=== PATIENT | female | born 1960 | race Caucasian/White ===

== ENCOUNTER → 2017-08-11 14:19 | Outpatient (REF) | payer MEDICAID, SELFPAY ==
[2017-08-11 17:53] LABS: Amphetamine/Metha Screen,Urine Negative ng/mL (<1000); Barbiturates Screen,Urine Negative ng/mL (<200); Benzodiazepines Screen,Urine Negative ng/mL (200); Cannabinoid Screen,Urine Negative ng/mL (<50); Cocaine Screen,Urine Negative ng/g (<300); Methadone Screen,Urine Negative ng/mL (<300); Opiate Screen,Urine Positive ng/mL (<300); Phencyclidine Screen,Urine Negative ng/mL (<25)
== END ==
LOC: LAB 14:19
PROVIDERS: Visit Provider Emergency Medicine
DX: Z79.899 Other long term (current) drug therapy (principal)
CPT/HCPCS: 80305

== ENCOUNTER → 2017-08-29 10:47 | Outpatient (REF) | payer MEDICAID, SELFPAY | LOC: LAB 10:47 | PROVIDERS: Visit Provider Nurse Practitioner Family | DX: N89.8 Other specified noninflammatory disorders of vagina (principal) | CPT/HCPCS: 87210 ==

== ENCOUNTER → 2017-09-10 10:05 | Outpatient (REF) | payer MEDICAID, SELFPAY ==
[2017-09-10 13:48] LABS: Cholesterol 124 mg/dL (140-200); HDL Cholesterol 41 mg/dL (29-89); LDL Cholesterol 67 mg/dL (0-130); Triglycerides 78 mg/dL (30-200); VLDL Cholesterol 16 mg/dL (0-40)
[2017-09-10 14:10] LABS: Hemoglobin A1C 10.8 % (0.0-7.0)
[2017-09-10 14:11] LABS: Amphetamine/Metha Screen,Urine Negative ng/mL (<1000); Barbiturates Screen,Urine Negative ng/mL (<200); Benzodiazepines Screen,Urine Negative ng/mL (200); Cannabinoid Screen,Urine Negative ng/mL (<50); Cocaine Screen,Urine Negative ng/g (<300); Methadone Screen,Urine Negative ng/mL (<300); Opiate Screen,Urine Positive ng/mL (<300); Phencyclidine Screen,Urine Negative ng/mL (<25)
[2017-09-12 12:08] LABS: Microalbumin, Urine 6.2 ug/mL (Not Estab.)
== END ==
LOC: LAB 10:05
PROVIDERS: Visit Provider Emergency Medicine
DX: E11.9 Type 2 diabetes mellitus without complications (principal); Z79.899 Other long term (current) drug therapy
CPT/HCPCS: 80061; 80305; 82043; 83036

== ENCOUNTER → 2017-10-08 13:47 | Outpatient (REF) | payer MEDICAID, SELFPAY ==
[2017-10-08 18:59] LABS: Cannabinoid Screen,Urine Negative ng/mL (<50); Methadone Screen,Urine Negative ng/mL (<300); Phencyclidine Screen,Urine Negative ng/mL (<25)
[2017-10-08 19:16] LABS: Amphetamine/Metha Screen,Urine Negative ng/mL (<1000); Barbiturates Screen,Urine Negative ng/mL (<200); Benzodiazepines Screen,Urine Negative ng/mL (200); Cocaine Screen,Urine Negative ng/g (<300); Opiate Screen,Urine Positive ng/mL (<300)
== END ==
LOC: LAB 13:47
PROVIDERS: Visit Provider Emergency Medicine
DX: Z79.899 Other long term (current) drug therapy (principal)
CPT/HCPCS: 80305

== ENCOUNTER 2017-10-14 11:38 | Emergency (ER) | payer MEDICAID, SELFPAY ==
[2017-10-14 11:55] VITALS: BP 172/103; PULSE 103; RESP 20; TEMP 36.8; O2SAT 97; BMI 30.7
[2017-10-14 12:06] LABS: UTC Influenza A Antigen Negative (Negative); UTC Influenza B Antigen Negative (Negative)
--- NOTE | 2017-10-14 12:11 | HMH.EDUTC ---
[facility] [place] Clinical Impression: Upper respiratory virus Disposition: Home, Self-Care Condition on Discharge: Good Instructions: DI for Viral Upper Respiratory Infection -- Adult Additional Instructions: * No sign of bacterial infection. Likely viral. Virus can take 7-14 days to run their course * Nasal Saline to remove nasal drainage and help with nasal congestion. Hard to eat, drink, sleep with nasal congestion so important to keep nose cleaned out * Monitor Temp. Tylenol every 4 hours as needed no more then 5 times a day or 4000mg in 24 hours and/or ibuprofen every 6 hours as needed no more then 3200mg in 24 hours (as long as your primary care doctor has told you that it is ok to take both) for fever/aches/pain. ER if fever no less than 101 despite tylenol and ibuprofen * Encourage fluids, water, gatorade, powerade, pedialyte if /toddler/child * warm salt water gargles * warm fluids * sore throat lozenges * sleep elevated * humidifier/vaporizer * flonase 2 sprays each nostril daily but may take 2-3 days to notice improvement with it. * Coricidin HBP over the counter as needed for symptoms. Avoid other otc cold medications due to decongestants elevate your blood pressure further. * Monitor your blood pressure. Elevated significantly today. Could be due to the tylenol cold and flu you have been taking. If doesn't start to come down OR you experience as symptoms such as worsening headache, vision changes, chest pain then you seek medical attention immediately Prescriptions: Fluticasone Propionate [Flonase 50mcg nasal spray 16gm] 2 spr NS DAILY #1 bottle Loratadine [Allergy] 10 mg PO DAILY #30 tab Referrals: Larry Bedolla MD [Primary Care Provider] - (Follow up IMMEDIATELY for new or worsening symptoms OR no noticeable improvement over the next 48-72 hours. 911 for difficulty breathing or swallowing.) Forms: Work/School Release Time of Disposition: 12:26 Medical Decision Making - Billy Inquiry Pt receiving controlled substance: No Vital Signs: 10/14/17 11:55 Temperature 98.3 F Temperature Source Oral Pulse Rate [Right Radial] 103 H Respiratory Rate 20 Blood Pressure [Right Arm] 172/103 Blood Pressure Mean [Right Arm] 126 02 Sat by Pulse Oximetry 97 Oxygen Delivery Method Room Air - Lab Data Lab results reviewed: Yes: I reviewed the patient's lab results. Lab Results 10/14/17 11:55: Influenza Type A Ag Negative, Influenza Type B Ag Negative [facility] [place] - General Stated complaint: Cold, congestion,body aches Time Seen by Provider: 10/14/17 12:11 Mode of Arrival: Family Vehicle Source of Information: Patient Limitations: No Limitations Description of Symptoms (Recalled from Triage Doc. by RN): PT C/O COUGH, BODY ACHES, HEADACHES, AND CHEST CONGESTION FOR 3 DAYS. HEENT Symptoms (Recalled from RN notes): Yes (HEADACHE,BODY ACHES,) Resp Symptoms (Recalled from RN notes): Yes (COUGH,CHEST CONGESTION) Skin Symptoms (Recalled from RN notes): No MS Symptoms (Recalled from RN notes): No Functional Status (Recalled from RN notes): NA - History of Present Illness Provider Complaint: c/o aches, chills, sinus pressure, rhinorrhea, nasal congestion, headache, sore throat starting 2-3 days ago. Feeling feverish at times. Tylenol cold and flu helps briefly. Hasn't taken or tried anything else. Hx of HTN and DM. Reports HTN typically controlled and suprised by how high it is today. Other then headache that she attributes to illness, asymptomatic. DM hasn't been controlled for several months . Working with PCP to get blood sugars out of the 200s but no higher then typical. - Related Data Home Medications Medication Instructions Recorded Confirmed aspirin 81 mg tablet,delayed 81 mg PO ONCE 08/11/17 10/14/17 release atorvastatin 40 mg tablet 40 mg PO HS tab 08/11/17 10/14/17 blood sugar diagnostic strips See Dose Instructions .ROUTE 08/11/17 .MEDSUPPLY #20 each carvedilol 25 mg tablet 25 mg
--- NOTE | 2017-10-14 12:19 | ED_ITS ---
[facility] [place] Clinical Impression: Upper respiratory virus Disposition: Home, Self-Care Condition on Discharge: Good Instructions: DI for Viral Upper Respiratory Infection -- Adult Additional Instructions: * No sign of bacterial infection. Likely viral. Virus can take 7-14 days to run their course * Nasal Saline to remove nasal drainage and help with nasal congestion. Hard to eat, drink, sleep with nasal congestion so important to keep nose cleaned out * Monitor Temp. Tylenol every 4 hours as needed no more then 5 times a day or 4000mg in 24 hours and/or ibuprofen every 6 hours as needed no more then 3200mg in 24 hours (as long as your primary care doctor has told you that it is ok to take both) for fever/aches/pain. ER if fever no less than 101 despite tylenol and ibuprofen * Encourage fluids, water, gatorade, powerade, pedialyte if /toddler/ child * warm salt water gargles * warm fluids * sore throat lozenges * sleep elevated * humidifier/vaporizer * flonase 2 sprays each nostril daily but may take 2-3 days to notice improvement with it. * Coricidin HBP over the counter as needed for symptoms. Avoid other otc cold medications due to decongestants elevate your blood pressure further. * Monitor your blood pressure. Elevated significantly today. Could be due to the tylenol cold and flu you have been taking. If doesn't start to come down OR you experience as symptoms such as worsening headache, vision changes, chest pain then you seek medical attention immediately Prescriptions: Fluticasone Propionate [Flonase 50mcg nasal spray 16gm] 2 spr NS DAILY #1 bottle Loratadine [Allergy] 10 mg PO DAILY #30 tab Referrals: Larry Bedolla MD [Primary Care Provider] - (Follow up IMMEDIATELY for new or worsening symptoms OR no noticeable improvement over the next 48-72 hours. 911 for difficulty breathing or swallowing.) Forms: Work/School Release Time of Disposition: 12:26 Medical Decision Making - Billy Inquiry Pt receiving controlled substance: No Vital Signs: 10/14/17 11:55 Temperature 98.3 F Temperature Source Oral Pulse Rate [Right Radial] 103 H Respiratory Rate 20 Blood Pressure [Right Arm] 172/103 Blood Pressure Mean [Right Arm] 126 02 Sat by Pulse Oximetry 97 Oxygen Delivery Method Room Air - Lab Data Lab results reviewed: Yes: I reviewed the patient's lab results. Lab Results 10/14/17 11:55: Influenza Type A Ag Negative, Influenza Type B Ag Negative [facility] [place] - General Stated complaint: Cold, congestion,body aches Time Seen by Provider: 10/14/17 12:11 Mode of Arrival: Family Vehicle Source of Information: Patient Limitations: No Limitations Description of Symptoms (Recalled from Triage Doc. by RN): PT C/O COUGH, BODY ACHES, HEADACHES, AND CHEST CONGESTION FOR 3 DAYS. HEENT Symptoms (Recalled from RN notes): Yes (HEADACHE,BODY ACHES,) Resp Symptoms (Recalled from RN notes): Yes (COUGH,CHEST CONGESTION) Skin Symptoms (Recalled from RN notes): No MS Symptoms (Recalled from RN notes): No Functional Status (Recalled from RN notes): NA - History of Present Illness Provider Complaint: c/o aches, chills, sinus pressure, rhinorrhea, nasal congestion, headache, sore throat starting 2-3 days ago. Feeling feverish at times. Tylenol cold and flu helps briefly. Hasn't taken or tried anything else. Hx of HTN and DM. Reports HTN typically controlled and suprised by how high it is today. Other then headache that she attributes to illness, asymptomatic. DM hasn't been controlled for jimmy
[2017-10-14 12:29] VITALS: BP 167/99; PULSE 97; RESP 18; TEMP 36.9; O2SAT 99
== END 2017-10-14 12:33 | disposition home or self-care (01) ==
PROVIDERS: Emergency Provider Nurse Practitioner Family; Family Provider Emergency Medicine; PCP Emergency Medicine
DX: J06.9 Acute upper respiratory infection, unspecified (principal); E11.9 Type 2 diabetes mellitus without complications; Z79.4 Long term (current) use of insulin; I10 Essential (primary) hypertension; I25.10 Atherosclerotic heart disease of native coronary artery without angina pectoris
CPT/HCPCS: 87804; 99201

== ENCOUNTER → 2017-11-04 09:25 | Outpatient (REF) | payer MEDICAID, SELFPAY ==
[2017-11-04 13:54] LABS: Amphetamine/Metha Screen,Urine Negative ng/mL (<1000); Barbiturates Screen,Urine Negative ng/mL (<200); Benzodiazepines Screen,Urine Negative ng/mL (200); Cannabinoid Screen,Urine Negative ng/mL (<50); Cocaine Screen,Urine Negative ng/g (<300); Methadone Screen,Urine Negative ng/mL (<300); Opiate Screen,Urine Positive ng/mL (<300); Phencyclidine Screen,Urine Negative ng/mL (<25)
== END ==
LOC: LAB 09:25
PROVIDERS: Visit Provider Emergency Medicine
DX: Z79.899 Other long term (current) drug therapy (principal)
CPT/HCPCS: 80305

== ENCOUNTER → 2017-11-24 16:01 | Outpatient (REF) | payer MEDICAID, SELFPAY ==
[2017-11-24 18:02] LABS: Amphetamine/Metha Screen,Urine Negative ng/mL (<1000); Barbiturates Screen,Urine Negative ng/mL (<200); Benzodiazepines Screen,Urine Negative ng/mL (200); Cannabinoid Screen,Urine Negative ng/mL (<50); Cocaine Screen,Urine Negative ng/g (<300); Methadone Screen,Urine Negative ng/mL (<300); Opiate Screen,Urine Positive ng/mL (<300); Phencyclidine Screen,Urine Negative ng/mL (<25)
== END ==
LOC: LAB 16:01
PROVIDERS: Visit Provider Emergency Medicine
DX: Z79.899 Other long term (current) drug therapy (principal)
CPT/HCPCS: 80305

== ENCOUNTER → 2017-12-23 15:38 | Outpatient (REF) | payer MEDICAID, SELFPAY ==
[2017-12-23 18:54] LABS: Amphetamine/Metha Screen,Urine Negative ng/mL (<1000); Barbiturates Screen,Urine Negative ng/mL (<200); Benzodiazepines Screen,Urine Negative ng/mL (200); Cannabinoid Screen,Urine Negative ng/mL (<50); Cocaine Screen,Urine Negative ng/g (<300); Methadone Screen,Urine Negative ng/mL (<300); Opiate Screen,Urine Positive ng/mL (<300); Phencyclidine Screen,Urine Negative ng/mL (<25)
== END ==
LOC: LAB 15:38
PROVIDERS: Visit Provider Emergency Medicine
DX: Z79.899 Other long term (current) drug therapy (principal)
CPT/HCPCS: 80305

== ENCOUNTER → 2018-01-05 10:30 | Outpatient (POV) | payer MEDICAID, SELFPAY ==
[2018-01-05 11:00] VITALS: BP 127/83; PULSE 83; RESP 20; O2SAT 98; BMI 30.3
--- NOTE | 2018-01-05 11:07 | HMH.PAINSOAP ---
[facility] Pain Management SOAP Note Subjective:: Patient is a pleasant 57-year-old white female who presents today for follow-up. Patient was scheduled for lumbar epidural steroid injection last June however due to elevated blood sugar she was unable to complete the injection. Patient states she now has better control of her blood sugar. Patient current pain is mainly in her left hip. Most of it is located over her left SI joint and her left greater trochanteric bursa. Patient rates her pain a 6 out of 10 today. 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 Patient tried and failed physical therapy, anti-inflammatories are not advised due to cardiac history. Patient is continuing to do home stretching. ROS General: no recent weight change, no fever, no sleep disturbances Respiratory: no cough, no shortness of air, no recurring pulmonary infections Cardiovascular/Peripheral Vascular: No chest pain, No palpitations, no edema, no shortness of breath. Gastrointestinal: no incontinence, normal bowel movements reported Genitourinary: no incontinence Musculoskeletal: Left hip pain, left SI joint pain Psychiatric: normal mood/ affect, Neurological: [denies weakness in extremities], [denies balance issues] Objective:: Physical Exam General: Alert and oriented x3, no acute distress, pleasant and cooperative, [on room air] Lungs: Resps E/U, Symmetrical chest expansion, Eyes: PERRL Musculoskeletal: Flexion and extension of lumbar spine somewhat guarded secondary to pain, deep tendon reflexes normal, strength in upper and lower extremities [5/5], slightly antalgic gait noted, extreme point tenderness over left SI joint and left greater trochanteric bursa, positive Kingsley's test on the left side Neurological: speech clear, instructor weaving equal, no gross sensory deficits Assessment:: Degenerative disc disease of the lumbar spine, sacroiliitis Plan:: We will schedule left SI joint. Patient failed other conservative methods including medication, unable to take anti-inflammatories, stretching therapies, physical therapy. I will follow-up with this patient after injection. Patient and I discussed decreasing the steroid dose due to her diabetes. This note was dictated using voice recognition software and may contain errors or omissions
--- NOTE | 2018-01-05 11:10 | P.CONS_ITS ---
[facility] Pain Management SOAP Note Subjective:: Patient is a pleasant 57-year-old white female who presents today for follow- up. Patient was scheduled for lumbar epidural steroid injection last June however due to elevated blood sugar she was unable to complete the injection. Patient states she now has better control of her blood sugar. Patient current pain is mainly in her left hip. Most of it is located over her left SI joint and her left greater trochanteric bursa. Patient rates her pain a 6 out of 10 today. 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 Patient tried and failed physical therapy, anti-inflammatories are not advised due to cardiac history. Patient is continuing to do home stretching. ROS General: no recent weight change, no fever, no sleep disturbances Respiratory: no cough, no shortness of air, no recurring pulmonary infections Cardiovascular/Peripheral Vascular: No chest pain, No palpitations, no edema, no shortness of breath. Gastrointestinal: no incontinence, normal bowel movements reported Genitourinary: no incontinence Musculoskeletal: Left hip pain, left SI joint pain Psychiatric: normal mood/ affect, Neurological: [denies weakness in extremities], [denies balance issues] Objective:: Physical Exam General: Alert and oriented x3, no acute distress, pleasant and cooperative, [ on room air] Lungs: Resps E/U, Symmetrical chest expansion, Eyes: PERRL Musculoskeletal: Flexion and extension of lumbar spine somewhat guarded secondary to pain, deep tendon reflexes normal, strength in upper and lower extremities [5/5], slightly antalgic gait noted, extreme point tenderness over left SI joint and left greater trochanteric bursa, positive Kingsley's test on the left side Neurological: speech clear, program services assistant equal, no gross sensory deficits Assessment:: Degenerative disc disease of the lumbar spine, sacroiliitis Plan:: We will schedule left SI joint. Patient failed other conservative methods including medication, unable to take anti-inflammatories, stretching therapies, physical therapy. I will follow-up with this patient after injection. Patient and I discussed decreasing the steroid dose due to her diabetes. This note was dictated using voice recognition software and may contain errors or omissions
== END ==
PROVIDERS: Family Provider Emergency Medicine; PCP Emergency Medicine; Visit Provider Clinical Nurse Specialist Family Health
DX: M46.1 Sacroiliitis, not elsewhere classified (principal)
CPT/HCPCS: 99212

== ENCOUNTER → 2018-01-20 10:21 | Outpatient (REF) | payer MEDICAID, SELFPAY ==
[2018-01-20 14:36] LABS: Amphetamine/Metha Screen,Urine Negative ng/mL (<1000); Barbiturates Screen,Urine Negative ng/mL (<200); Benzodiazepines Screen,Urine Negative ng/mL (200); Cannabinoid Screen,Urine Negative ng/mL (<50); Cocaine Screen,Urine Negative ng/g (<300); Methadone Screen,Urine Negative ng/mL (<300); Opiate Screen,Urine Positive ng/mL (<300); Phencyclidine Screen,Urine Negative ng/mL (<25)
== END ==
LOC: LAB 10:21
PROVIDERS: Visit Provider Emergency Medicine
DX: Z79.899 Other long term (current) drug therapy (principal)
CPT/HCPCS: 80305

== ENCOUNTER 2018-02-11 16:57 | Observation (INO) ==
--- NOTE | 2018-02-11 17:01 | Emergency Department Note ---
ED Disposition Clinical Impression: Unstable angina, Hyperglycemia Disposition: Still a Patient Condition on Discharge: Fair Referrals: Larry Bedolla MD [Primary Care Provider] - - Critical Care Critical Care Time: No Attestation: On , the high probability of a clinically significant, sudden or life threatening deterioration of the following system(s) required my full and direct attention, intervention and personal management. The time I documented below is in addition to time spent performing reported procedures but includes the following listed in this critical care notation. Medical Decision Making - Billy Inquiry Pt receiving controlled substance: No Vital Signs: 02/11/18 16:58 Respiratory Rate 18 Blood Pressure [Right Arm] 181/96 Blood Pressure Mean [Right Arm] 124 Blood Pressure Source [Right Arm] Automatic Cuff 02 Sat by Pulse Oximetry 97 Oxygen Delivery Method Room Air - Lab Data Lab Results 02/11/18 17:40: WBC 4.3 L, RBC 4.32, Hgb 13.2, Hct 42.2, MCV 97.7, MCH 30.5, MCHC 31.2 L, RDW 13.5, Plt Count 98 L, MPV 10.8 H, Neut % (Auto) 62.7, Lymph % ( Auto) 29.2, Ward % (Auto) 5.0, Eos % (Auto) 2.6, Baso % (Auto) 0.4, Neut # (Auto ) 2.7, Lymph # (Auto) 1.3, Ward # (Auto) 0.2, Eos # (Auto) 0.1, Baso # (Auto) 0.0 02/11/18 17:40: Sodium 135 L, Potassium 4.2, Chloride 102, Carbon Dioxide 28, Anion Gap 9.2, BUN 13, Creatinine 1.06 H, Estimated Creat Clear 81, Estimated GFR 54 L, Est GFR ( Amer) 65, Glucose 550 H*, Calcium 8.7, Total Bilirubin 0.5, AST 23, ALT 36, Alkaline Phosphatase 131 H, Troponin I < 0.02, Total Protein 7.3, Albumin 3.2 L, Globulin 4.1 H, Albumin/Globulin Ratio 0.8 L, Lipase 326 Result diagrams: 02/11/18 17:40 02/11/18 17:40 Orders (Tests/Meds): ED MEDICATIONS Generic Name Dose Route Start Last Admin Trade Name Freq PRN Reason Stop Dose Admin Bisoprolol Fumarate 10 mg 02/12/18 18:19 Zebeta 5mg Tablet PO 02/12/18 18:20 ONCE ONE Nitroglycerin 0.4 mg 02/11/18 17:29 02/11/18 17:40 Nitrostat 0.4mg Sl Tablet SL 02/12/18 17:29 0.4 mg Q5MINP PRN Administration Chest Pain Discontinued Medications Generic Name Dose Route Start Last Admin Trade Name Freq PRN Reason Stop Dose Admin Insulin Human Lispro 15 unit 02/11/18 18:09 Humalog 100 Units/Ml 3ml Vial (Ssi) SQ 02/11/18 18:10 ONCE ONE ORDERS Category Date Time Status Chest XR -- portable [XR chest portable] Stat Exams 02/11/18 17:19 Taken - Radiology Data #1 Image(s): Clavicle Image Reviewed: Yes I reviewed the patient's radiology image Chronic elevation right diaphragm. No acute process. - ECG Data Tracing #1 EKG interpreted by David Barlow MD: Rhythm: sinus Rate: 83 Bison: normal Ectopy: none Conduction: normal ST Segment Changes: none T Wave Changes: none Q Waves: none No evidence of acute ischemia or injury - Physician Consults Physician Consulted: Lenin Time: 18:10 Reason -: Cardiology Eval/Care Comment/Response: Bisoprolol 10 mg p.o. Admit. Additional Consult: Kena Bedolla Time: 18:33 Reason -: Admission Comment/Response: Agrees to admit the patient to the hospital. We discussed the patient's clinical information, including history, exam, laboratory and radiology results and ED course. Per hospital procedure, I will write temporary bridge inpatient orders on the patient. Specific orders requested by the admitting physician: Sliding scale insulin, serial cardiac enzymes, cardiology consult General Adult HPI - General Chief complaint: Chest Pain Stated complaint: CP Time Seen by Provider: 02/11/18 17:15 - History of Present Illness HPI narrative: States she has been having intermittent chest pain for 4-5 days. Gets it every few hours and it lasts about 10 minutes. Nonexertional, nothing seems to bring it on. She does not have nitroglycerin at home. Describes a pain in her anterior chest that goes through to her shoulder blades and back. Mild shortness of breath. Denies nausea or diaphoresis. Currently has mild pain that started when she arrived. 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 She says there were some changes on her EKG and he wanted to do a cardiac catheterization tomorrow morning as an outpatient. Has coronary artery disease. States that she has had 3 stents. The last time that she had a stent placed was September 2016. - Related Data Home Medications Medication Instructions Recorded Confirmed blood sugar diagnostic strips See Dose Instructions .ROUTE 08/11/17 .MEDSUPPLY #20 each pantoprazole 40 mg tablet,delayed 40 mg PO QAM 08/11/17 release Insulin Lispro Protamin/Lispro 50 unit SUB-Q BID 10/14/17 10/14/17 [Humalog Mix 75/25 100 Units/mL 10mL Vial] clopidogrel 75 mg tablet 75 mg PO DAILY tab 11/11/17 fluconazole 150 mg tablet 150 mg PO DAILY tab 11/11/17 Previous Rx's Medication Instructions Recorded benzonatate 100 mg capsule 100 mg PO TID PRN #30 cap 10/13/17 Fluticasone Propionate [Flonase 2 spr NS DAILY #1 bottle 10/14/17 50mcg nasal spray 16gm] Loratadine [Allergy] 10 mg PO DAILY #30 tab 10/14/17 lisinopril 20 mg tablet 20 mg PO DAILY #30 tab 11/11/17 insulin glargine (U-100) 100 20 unit SUB-Q QHS 30 Days #6 ml 11/27/17 unit/mL (3 mL) subcutaneous pen aspirin 81 mg tablet,delayed 81 mg PO DAILY 90 Days #90 tab 12/21/17 release gabapentin 600 mg tablet 600 mg PO TID 30 Days #90 tab 12/23/17 Ondansetron [Zofran 4mg ODT] 4 mg PO Q8H PRN #20 tab.rapdis 01/14/18 hydrocodone 5 mg-acetaminophen 325 1 tab PO TID PRN #90 tab 01/20/18 mg tablet atorvastatin 40 mg tablet 40 mg PO QHS #90 tab 02/04/18 Allergies Allergy/AdvReac Type Severity Reaction Status Date / Time No Known Allergies Allergy Verified 02/10/18 10:58 [facility] History I have reviewed the patient's past medical history: Yes Medical History: Reports:: Coronary Artery Disease, Depression, Diabetes Mellitus Type 2, Hyperlipidemia, Hypertension Denies:: Cancer, Diabetes Mellitus Type 1, MRSA Comment: NEUROPATHY Other Surgeries: Yes: No Previous Surgery, Angioplasty, Cardiac Surgery, Coronary Stent, Dilation and Curettage Amputation: No Fractures: No - Social History Smoking Status: Never smoker Tobacco Type: cigarettes Alcohol Intake: never Substance Use Type: denies use Occupational Status: employed Housing: apartment Household Members: none - Psychiatric History Pschychiatric History:: Reports:: Depression Family Hx:: Hypertension, Diabetes ROS Obtained: Yes All systems reviewed & no additional complaints - Constitutional Constitutional: Denies excessive sweating - Cardiovascular Cardiovascular: Reports chest pain - Respiratory Respiratory: Yes dyspnea - Gastrointestinal Gastrointestingal: Denies: nausea, vomiting Physical Exam - General General appearance: alert, in no apparent distress - Head Head exam: atraumatic, normocephalic, normal inspection - Eye Eye exam: Present: normal appearance, PERRL, EOMI - ENT ENT exam: Present: normal exam, normal oropharynx, mucous membranes moist, TM's normal bilaterally, normal external ear exam - Neck Neck exam: Present: normal inspection, full ROM, trachea midline. Absent: meningismus, lymphadenopathy - Chest Chest inspection: Present: normal inspection, symmetric chest wall rise. Absent : tenderness - Respiratory Respiratory exam: Present: normal lung sounds bilaterally. Absent: respiratory distress - Cardiovascular Cardiovascular exam: Present: regular rate, normal rhythm. Absent: JVD - Abdominal Exam Abdominal exam: Present: soft, normal bowel sounds. Absent: distention, tenderness, guarding - Extremities Exam Extremities exam: Present: normal inspection, full ROM, normal capillary refill. Absent: calf tenderness - Neurological Exam Neurological exam: Present: alert, oriented X3 - Psychiatric Psychiatric exam: Present: normal affect, normal mood - Skin Skin exam: Present: warm, dry, intact, normal color
[2018-02-11 17:52] LABS: Basophils % 0.4 % (0.1-2.0); Eosinophils # 0.1 K/mm3 (0.0-0.4); Eosinophils % 2.6 % (0.1-12.0); Hematocrit 42.2 % (37.0-47.0); Hemoglobin 13.2 g/dL (12.2-16.2); Lymphocytes # 1.3 K/mm3 (0.7-4.5); Lymphocytes % 29.2 K/mm3 (10-50); Mean Corpuscular HGB Conc 31.2 g/dL (31.8-35.4); Mean Corpuscular Hemoglobin 30.5 pg (27.0-31.2); Mean Corpuscular Volume 97.7 fl (81-99); Mean Platelet Volume 10.8 fl (7.4-10.4); Monocytes # 0.2 K/mm3 (0.1-1.0); Neutrophils # 2.7 K/mm3 (1.8-7.8); Neutrophils % 62.7 % (37.0-80.0); Platelet Count 98 K/mm3 (142-424); Red Blood Count 4.32 M/mm3 (4.20-5.40); Red Cell Distribution Width 13.5 % (11.5-17.5); White Blood Count 4.3 K/mm3 (4.8-10.8)
[2018-02-11 18:06] LABS: Alanine Aminotransferase 36 U/L (12-78); Albumin Level 3.2 gm/dL (3.4-5.0); Albumin/Globulin Ratio 0.8 (1.1-1.8); Alkaline Phosphatase 131 U/L (46-116); Anion Gap 9.2 mEq/L (5-15); Aspartate Amino Transferase 23 U/L (15-37); Bilirubin,Total 0.5 mg/dL (0.2-1.0); Blood Urea Nitrogen 13 mg/dL (7-18); Calcium 8.7 mg/dL (8.5-10.1); Carbon Dioxide 28 mmol/L (21.0-32.0); Chloride 102 mmol/L (98-107); Globulin 4.1 gm/dl (1.3-3.2); Lipase 326 u/L (73-393); Potassium 4.2 mmoL/L (3.5-5.1); Sodium 135 mmol/L (136-145); Total Protein,Serum 7.3 gm/dL (6.4-8.2)
[2018-02-11 18:07] LABS: Glucose 550 mg/dL (74-106)
--- NOTE | 2018-02-12 07:42 | Pharmacy Consult Notes ---
[facility] VTE Monitoring - Patient Demographics Admission date: 02/11/18 Report Date: 02/12/18 Time: 07:41 Allergies/Adverse Reactions: Patient Allergies No Known Allergies Allergy (Verified 02/10/18 10:58) Height: 1.68 m Weight: 87.231 kg Patient Problems: Current Active Problems Unstable angina (Acute) Hyperglycemia (Acute) - VTE Risk Labs: VTE Related Lab Results Hgb 13.2 g/dL (12.2-16.2) 02/11/18 17:40 Hct 42.2 % (37.0-47.0) 02/11/18 17:40 Plt Count 98 K/mm3 (142-424) L 02/11/18 17:40 BUN 13 mg/dL (7-18) 02/11/18 17:40 Creatinine 1.06 mg/dL (0.55-1.02) H 02/11/18 17:40 Estimated Creat Clear 81 mL/min (0-300) 02/11/18 17:40 Was VTE Risk Assessment Performed: Yes VTE Score: 2 VTE Risk Level: Very Low Risk - Prophylaxis VTE Prophylaxis Ordered?: Yes Types of VTE Prophylaxis: TEDS Knee High Location of Applied Device: Bilateral Lower Extremeties - VTE Diagnosis Confirmed Treatment or plan recommended: Continue Current Treatment
--- NOTE | 2018-02-12 08:11 | Consult Report ---
History of Present Illness Consult date: 02/12/18 Requesting physician: Larry Bedolla Consult reason: chest pain Chief complaint: chest pain Additional Medical History:: 1. Diabetes mellitus, insulin-dependent 2. Hypertension 3. Hyperlipidemia 4. Coronary artery disease A. Cardiac catheterization 01/03/2016, hazy angiographically indeterminate disease of the proximal left anterior descending, small vessel disease involving diagonal artery (2mm with 90 percent proximal stenosis), obtuse marginal artery (proximal and mid vessel 60-70 percent stenosis and a 2 mm vessel) and posterior lateral ventricular branch ( a 1.5 mm vessel with a 60-70 percent mid vessel stenosis) LVEF 65 percent, LVEDP 10 mmHg. B. Cardiac catheterization, 01/04/2016, successful stenting of the left anterior descending and ramus intermedius with 2 drug-eluting stents. C. Cardiac cath, 09/2016, ANGIOGRAPHIC RESULTS: 1. The left main artery normal 2. The left anterior descending artery is proximally with luminal irregularities of approximately 10% stenosis. After the first diagonal artery the LAD stent is widely patent with excellent transitioning proximally and distally. A large first diagonal artery has a stent in the ostial proximal segment which is also widely patent free of in-stent restenosis. 3. The circumflex artery is a nondominant vessel giving rise to 3 obtuse marginal arteries. The second obtuse marginal artery is a 2.25 mm vessel is long and supplies a moderate to large amount of myocardium. This vessel has a proximal hazy 60-70% stenosis followed by an additional hazy 50% stenosis. 4. The right coronary artery is a dominant vessel and has an ostial smooth 30% stenosis followed by a hazy 30-40% stenosis immediately distal to the posterior descending artery and the large posterior lateral ventricular branch. The posterior descending artery is a long vessel supplying a large amount of myocardium and has an ostial proximal 90% diameter stenosis 5. The [place] ventriculogram reveals normal 65% 6. The left ventricular end-diastolic pressure normal 10 mmHg IMPRESSION: 1. Patent stents in the LAD and diagonal artery as described above 2. Severe stenosis and a long posterior descending artery off the dominant right coronary artery supplying a large amount of myocardium 3. Successful stenting of the large posterior descending artery severe disease reduced to 0% with 1 drug-eluting stent 4. Persistent moderate to severe stenosis and a 2 mm long second obtuse marginal artery 5. Normal ejection fraction 6. Normal left ventricular end-diastolic pressure PLAN: 1. Aspirin Plavix 2. Avoidance of tobacco 3. Continue antianginal medication 4. LDL less than 70 5. I believe patient's angina stems from this large posterior descending artery. I would like to maximize antianginal medication and try our best not to intervene on the second obtuse marginal artery if at all possible. Should patient have recalcitrant angina then I would consider stenting the second obtuse marginal artery but my first preference would be maximizing antianginal medications and treating associated risk factors 5. Family history of coronary artery disease in her brother History of present illness: 57-year-old white female with known coronary artery disease and previous stenting presented to the emergency department for recurrent chest pain. Patient was recently seen in the cardiology office for evaluation of the chest pain with recommendations for left heart catheterization due to abnormal EKG. Insurance initially denied the heart catheterization with attempts to appeal in progress. Patient describes the chest pain as substernal with radiation to the left arm occurring with activity and improving with rest. In the ER she was given 2 sublingual nitroglycerin with relief and no recurrence since then. Cardiac troponins are returned normal overnight. EKG is sinus with ST-T abnormalities laterally suggestive of ischemic changes. Cardiology consulted for evaluation recommendation. [facility] History Medical History: Reports:: Coronary Artery Disease, Depression, Diabetes Mellitus Type 2, Hyperlipidemia, Hypertension Denies:: Cancer, Diabetes Mellitus Type 1, MRSA Other Surgeries: Yes: No Previous Surgery, Angioplasty, Cardiac Surgery, Coronary Stent, Dilation and Curettage Amputation: No Fractures: No - *Social History Educational Level: Completed High School Smoking Status: Never smoker Tobacco Type: cigarettes Alcohol Intake: never Substance Use Type: denies use Occupational Status: employed Housing: apartment Household Members: none - Psychiatric History Expresses thoughts of harming self/others: None Suicide Plan Description: No Plan Pschychiatric History:: Reports:: Depression *Family Hx:: Hypertension, Diabetes Meds Home Medications Medication Instructions Recorded Confirmed Type pantoprazole 40 mg tablet,delayed 40 mg PO QAM 08/11/17 02/11/18 History release Insulin Lispro Protamin/Lispro 50 unit SUB-Q BID 10/14/17 02/11/18 History [Humalog Mix 75/25 100 Units/mL 10mL Vial] clopidogrel 75 mg tablet 75 mg PO DAILY tab 04/17/18 07/18/18 History fluconazole 150 mg tablet 150 mg PO DAILY tab 11/11/17 02/11/18 History Allergies Allergy/AdvReac Type Severity Reaction Status Date / Time No Known Allergies Allergy Verified 02/10/18 10:58 Review of Systems - *Cardiovascular Reports chest pain, Reports shortness of breath with activity - *Respiratory Reports shortness of breath with activity - *Gastrointestinal Denies abdominal pain - *Genitourinary Denies difficulty urinating Exam Vital signs and Labs for Last 24 Hours: Temp Pulse Resp BP Pulse Ox 97.9 F 80 18 142/70 97 02/12/18 04:00 02/12/18 06:00 02/12/18 04:00 02/12/18 04:00 02/12/18 04:00 Laboratory Results - last 24 hr 02/11/18 17:40: WBC 4.3 L, RBC 4.32, Hgb 13.2, Hct 42.2, MCV 97.7, MCH 30.5, MCHC 31.2 L, RDW 13.5, Plt Count 98 L, MPV 10.8 H, Neut % (Auto) 62.7, Lymph % ( Auto) 29.2, [place] % (Auto) 5.0, Eos % (Auto) 2.6, Baso % (Auto) 0.4, Neut # (Auto ) 2.7, Lymph # (Auto) 1.3, [place] # (Auto) 0.2, Eos # (Auto) 0.1, Baso # (Auto) 0.0 02/11/18 17:40: Sodium 135 L, Potassium 4.2, Chloride 102, Carbon Dioxide 28, Anion Gap 9.2, BUN 13, Creatinine 1.06 H, Estimated Creat Clear 81, Estimated GFR 54 L, Est GFR ( Amer) 65, Glucose 550 H*, Calcium 8.7, Total Bilirubin 0.5, AST 23, ALT 36, Alkaline Phosphatase 131 H, Troponin I < 0.02, Total Protein 7.3, Albumin 3.2 L, Globulin 4.1 H, Albumin/Globulin Ratio 0.8 L, Lipase 326 02/11/18 20:26: Troponin I < 0.02 02/11/18 21:51: POC Glucose 295 H 02/11/18 22:56: Troponin I < 0.02 02/12/18 01:55: Troponin I < 0.02 02/12/18 06:22: POC Glucose 213 H I & O for Last 24 hours: Intake & Output 02/09/18 02/10/18 02/11/18 02/12/18 11:59 11:59 11:59 11:59 Weight 192 lb 5 oz - *Routine Neck Exam Absent: JVD, carotid bruit - *Routine Respiratory Exam Present: CTA bilaterally - *Routine Cardiovascular Exam Present: RRR. Absent: murmur, gallop - *Routine Extremities Exam Absent: edema - *Routine Neurological Exam Present: alert, oriented X3, moving all extremities Assessment and Plan (1) Unstable angina Current visit: Yes Status: Acute Category: Medical Code(s): I20.0 - Unstable angina (2) Diabetes Current visit: No Status: Acute Category: Medical Code(s): E11.9 - Type 2 diabetes mellitus without complications (3) CAD (coronary artery disease) Current visit: No Status: Chronic Qualifiers: Coronary Disease-Associated Artery/Lesion type: [place] artery Associated angina: with other forms of angina Category: Medical Code(s): I25.10 - Atherosclerotic heart disease of [place] coronary artery without angina pectoris (4) HHD (hypertensive heart disease) Current visit: No Status: Chronic Category: Medical Code(s): I11.9 - Hypertensive heart disease without heart failure (5) HLD (hyperlipidemia) Current visit: No Status: Chronic Category: Medical Code(s): E78.5 - Hyperlipidemia, unspecified - Assessment and plan all Dx Assessment and Plan for all problems:: 1. With unstable angina pectoris in a diabetic patient with known coronary artery disease and previous coronary stenting with abnormal EKG recommend proceeding with left heart catheterization this a.m. Risks, benefits and procedure explained to the patient she agrees to proceed. 2. Further recommendations following the above procedure.
--- NOTE | 2018-02-12 13:22 | History & Physical Report ---
*Admission Date: 02/11/18 *Chief complaint: chest pressure *History of present illness: 57-year-old white female with known coronary artery disease and previous stenting presented to the emergency department for recurrent chest pain. Patient was recently seen in the cardiology office for evaluation of the chest pain with recommendations for left heart catheterization due to abnormal EKG. Insurance initially denied the heart catheterization with attempts to appeal in progress. Patient describes the chest pain as substernal with radiation to the left arm occurring with activity and improving with rest. In the ER she was given 2 sublingual nitroglycerin with relief and no recurrence since then. Cardiac troponins are returned normal overnight. EKG is sinus with ST-T abnormalities laterally suggestive of ischemic changes. Cardiology consulted for evaluation recommendation. [facility] History I have reviewed the patient's past medical history: Yes Medical History: Reports:: Coronary Artery Disease, Depression, Diabetes Mellitus Type 2, Hyperlipidemia, Hypertension Denies:: Cancer, Diabetes Mellitus Type 1, MRSA Other Surgeries: Yes: No Previous Surgery, Angioplasty, Cardiac Surgery, Coronary Stent, Dilation and Curettage Amputation: No Fractures: No - *Social History Educational Level: Completed High School Smoking Status: Never smoker Tobacco Type: cigarettes Alcohol Intake: never Substance Use Type: denies use Occupational Status: employed Housing: apartment Household Members: none - Psychiatric History Expresses thoughts of harming self/others: None Suicide Plan Description: No Plan Pschychiatric History:: Reports:: Depression *Family Hx:: Hypertension, Diabetes Review of Systems - Constitutional Denies fever(s) - *Cardiovascular Reports chest pain, Reports chest pain at rest, Reports chest pain with activity , Reports shortness of breath, Reports shortness of breath with activity - *Respiratory Reports chest congestion - *Gastrointestinal Denies change in bowel habits - *Genitourinary Denies vaginal dryness - *Musculoskeletal Denies body aches - Integumentary/Breasts Denies rash - *Neurologic Denies restless legs - Psychiatric Denies anxiety - Endocrine Denies increased thirst - Hematologic/Lymphatic Denies enlarged lymph nodes - Allergic/Immunologic Denies lip swelling Meds Home Medications Medication Instructions Recorded Confirmed Type Insulin Lispro Protamin/Lispro 50 unit SUB-Q BID 10/14/17 02/11/18 History [Humalog Mix 75/25 100 Units/mL 10mL Vial] clopidogrel 75 mg tablet 75 mg PO DAILY tab 11/11/17 02/11/18 History Carvedilol [Carvedilol 25mg Tab] 25 mg PO BID 02/12/18 02/12/18 History Allergies Allergy/AdvReac Type Severity Reaction Status Date / Time No Known Allergies Allergy Verified 02/10/18 10:58 Exam Vital signs and Labs for Last 24 Hours: Temp Pulse Resp BP Pulse Ox 97.8 F 78 18 164/88 96 02/12/18 08:00 02/12/18 12:54 02/12/18 12:54 02/12/18 12:54 02/12/18 12:54 Laboratory Results - last 24 hr 02/11/18 17:40: WBC 4.3 L, RBC 4.32, Hgb 13.2, Hct 42.2, MCV 97.7, MCH 30.5, MCHC 31.2 L, RDW 13.5, Plt Count 98 L, MPV 10.8 H, Neut % (Auto) 62.7, Lymph % ( Auto) 29.2, [place] % (Auto) 5.0, Eos % (Auto) 2.6, Baso % (Auto) 0.4, Neut # (Auto ) 2.7, Lymph # (Auto) 1.3, [place] # (Auto) 0.2, Eos # (Auto) 0.1, Baso # (Auto) 0.0 02/11/18 17:40: Sodium 135 L, Potassium 4.2, Chloride 102, Carbon Dioxide 28, Anion Gap 9.2, BUN 13, Creatinine 1.06 H, Estimated Creat Clear 81, Estimated GFR 54 L, Est GFR ( Amer) 65, Glucose 550 H*, Calcium 8.7, Total Bilirubin 0.5, AST 23, ALT 36, Alkaline Phosphatase 131 H, Troponin I < 0.02, Total Protein 7.3, Albumin 3.2 L, Globulin 4.1 H, Albumin/Globulin Ratio 0.8 L, Lipase 326 02/11/18 20:26: Troponin I < 0.02 02/11/18 21:51: POC Glucose 295 H 02/11/18 22:56: Troponin I < 0.02 02/12/18 01:55: Troponin I < 0.02 02/12/18 06:22: POC Glucose 213 H I & O for Last 24 hours: Intake & Output 02/10/18 02/11/18 02/12/18 07/20/18 11:59 11:59 11:59 11:59 Weight 192 lb 5 oz - Constitutional no acute distress - *Routine HEENT Exam Head: Present: normocephalic Eye: Present: PERRL ENT: Present: mucous membranes moist - *Routine Neck Exam Present: supple, full ROM - *Routine Respiratory Exam Present: CTA bilaterally - *Routine Cardiovascular Exam Present: RRR - *Routine Abdominal Exam Present: soft - *Routine Extremities Exam Present: full ROM - *Routine Skin Exam Present: intact - *Routine Neurological Exam Present: alert, CN II-XII intact - Routine Psychiatric Exam Present: normal affect H&P: Result - Labs Labs: Short CBC 02/11/18 Range/Units 17:40 WBC 4.3 L (4.8-10.8) K/mm3 Hgb 13.2 (12.2-16.2) g/dL Hct 42.2 (37.0-47.0) % Plt Count 98 L (142-424) K/mm3 BMP 02/11/18 17:40 Sodium 135 L Potassium 4.2 Chloride 102 Carbon Dioxide 28 BUN 13 Creatinine 1.06 H Glucose 550 H* Calcium 8.7 Cardiac Enzymes 02/11/18 02/11/18 02/11/18 Range/Units 17:40 20:26 22:56 Troponin I < 0.02 < 0.02 < 0.02 (0.00-0.06) ng/ml 02/12/18 Range/Units 01:55 Troponin I < 0.02 (0.00-0.06) ng/ml Liver Function 02/11/18 Range/Units 17:40 Total Bilirubin 0.5 (0.2-1.0) mg/dL AST 23 (15-37) U/L ALT 36 (12-78) U/L Alkaline Phosphatase 131 H (46-116) U/L Albumin 3.2 L (3.4-5.0) gm/dL Assessment and Plan (1) Unstable angina Current visit: Yes Status: Acute Category: Medical Code(s): I20.0 - Unstable angina (2) Diabetes Current visit: No Status: Acute Category: Medical Code(s): E11.9 - Type 2 diabetes mellitus without complications (3) CAD (coronary artery disease) Current visit: No Status: Chronic Qualifiers: Coronary Disease-Associated Artery/Lesion type: [place] artery Associated angina: with other forms of angina Category: Medical Code(s): I25.10 - Atherosclerotic heart disease of [place] coronary artery without angina pectoris (4) HHD (hypertensive heart disease) Current visit: No Status: Chronic Category: Medical Code(s): I11.9 - Hypertensive heart disease without heart failure (5) HLD (hyperlipidemia) Current visit: No Status: Chronic Category: Medical Code(s): E78.5 - Hyperlipidemia, unspecified - Assessment and plan all Dx Assessment and Plan for all problems:: Rounded with Dr. Bedolla all orders per [place]
[2018-02-13 06:13] LABS: Anion Gap 5.9 mEq/L (5-15); Calcium 8.6 mg/dL (8.5-10.1); Potassium 3.9 mmoL/L (3.5-5.1)
[2018-02-13 07:08] LABS: Basophils % 0.3 % (0.1-2.0); Eosinophils # 0.2 K/mm3 (0.0-0.4); Hematocrit 40.6 % (37.0-47.0); Hemoglobin 13.1 g/dL (12.2-16.2); Lymphocytes # 1.5 K/mm3 (0.7-4.5); Lymphocytes % 28.4 K/mm3 (10-50); Mean Corpuscular HGB Conc 32.2 g/dL (31.8-35.4); Mean Corpuscular Hemoglobin 31.2 pg (27.0-31.2); Mean Corpuscular Volume 96.8 fl (81-99); Mean Platelet Volume 9.8 fl (7.4-10.4); Monocytes # 0.3 K/mm3 (0.1-1.0); Monocytes % 5.6 % (1.7-9.3); Neutrophils # 3.4 K/mm3 (1.8-7.8); Neutrophils % 62.7 % (37.0-80.0); Platelet Count 118 K/mm3 (142-424); Red Blood Count 4.19 M/mm3 (4.20-5.40); White Blood Count 5.4 K/mm3 (4.8-10.8)
--- NOTE | 2018-02-13 08:49 | Progress Note ---
Subjective Date: 02/13/18 Time: 08:47 Principal diagnosis: UAP, CAD Interval history: 57-year-old white female in bed in no acute distress. States she slept well last night. Denies any further chest pain, pressure or tightness. She is asking to go home. Exam Vital signs and Labs for Last 24 Hours: Temp Pulse Resp BP Pulse Ox 97.8 F 67 16 144/87 98 02/13/18 06:00 02/13/18 06:00 02/13/18 06:00 02/13/18 06:00 02/13/18 06:00 Laboratory Results - last 24 hr 02/12/18 16:20: POC Glucose 379 H* 02/12/18 19:24: POC Glucose 289 H 02/13/18 05:47: POC Glucose 206 H 02/13/18 06:00: WBC 5.4 D, RBC 4.19 L, Hgb 13.1, Hct 40.6, MCV 96.8, MCH 31.2, MCHC 32.2, RDW 14.0, Plt Count 118 L, MPV 9.8, Neut % (Auto) 62.7, Lymph % (Auto ) 28.4, [place] % (Auto) 5.6, Eos % (Auto) 3.0, Baso % (Auto) 0.3, Neut # (Auto) 3.4, Lymph # (Auto) 1.5, [place] # (Auto) 0.3, Eos # (Auto) 0.2, Baso # (Auto) 0.0 02/13/18 06:00: Sodium 138, Potassium 3.9, Chloride 107, Carbon Dioxide 29, Anion Gap 5.9, BUN 14, Creatinine 0.75 D, Estimated Creat Clear 120, Estimated GFR 80, Est GFR ( Amer) 97 D, Glucose 221 H, Calcium 8.6 I & O for Last 24 hours: Intake & Output 02/10/18 02/11/18 02/12/18 02/13/18 11:59 11:59 11:59 11:59 Intake Total 730 / 730 Balance 730 / 730 Weight 192 lb 5 oz 198 lb - *Routine Respiratory Exam Present: CTA bilaterally - *Routine Cardiovascular Exam Present: RRR Progress Note: A&P (1) Unstable angina Status: Acute Current Visit: Yes (2) Diabetes Status: Acute Current Visit: No (3) CAD (coronary artery disease) Status: Chronic Current Visit: No (4) HHD (hypertensive heart disease) Status: Chronic Current Visit: No (5) HLD (hyperlipidemia) Status: Chronic Current Visit: No Assessment and Plan for All Diagnoses:: Cardiac status stable. Okay for discharge home from cardiology standpoint Continue home medications including aspirin 81 mg daily, Plavix 75 mg daily and lisinopril 20 mg daily along with atorvastatin 40 mg daily. Follow-up in cardiology clinic in 1-2 weeks.
--- NOTE | 2018-02-13 12:03 | Discharge Summary ---
General - General Admission date:: 02/11/18 Discharge date: 02/13/18 HPI HPI: 57-year-old white female with known coronary artery disease and previous stenting presented to the emergency department for recurrent chest pain. Patient was recently seen in the cardiology office for evaluation of the chest pain with recommendations for left heart catheterization due to abnormal EKG. Insurance initially denied the heart catheterization with attempts to appeal in progress. Patient describes the chest pain as substernal with radiation to the left arm occurring with activity and improving with rest. In the ER she was given 2 sublingual nitroglycerin with relief and no recurrence since then. Cardiac troponins are returned normal overnight. EKG is sinus with ST-T abnormalities laterally suggestive of ischemic changes. Cardiology consulted for evaluation recommendation. Hospital Course Hospital Course: cardiology consult see note,heart cath heart cath results: IMPRESSION: 1. Coronary artery disease as described above 2. Severe stenosis and a very large posterior lateral ventricular branch 3. Successful stenting the large posterior lateral ventricular branch severe to critical disease reduced to 0% with 1 drug-eluting stent 4. Successful stenting of the ostial proximal posterior descending artery severe disease reduced to 0% with 1 drug-eluting stent 5. Normal ejection fraction 6. Mildly elevated LVEDP PLAN: 1. Dual antiplatelet therapy for one year 2. Risk factor modification 3. Avoidance of tobacco products 4. Cardiac rehabilitation We will discharge home on aspirin 81 mg daily, Plavix 75 mg daily, lisinopril 20 mg daily, and atorvastatin 40 mg daily and follow-up with cardiology in 1 week. Objective Vital signs: Temp Pulse Resp BP Pulse Ox 98.3 F 80 18 159/94 100 02/13/18 10:00 02/13/18 10:00 02/13/18 10:00 02/13/18 10:02/13/18 10:00 no acute distress - *Routine HEENT Exam Head: Present: normocephalic Eye: Present: PERRL ENT: Present: mucous membranes moist - *Routine Neck Exam Present: full ROM - *Routine Respiratory Exam Present: CTA bilaterally - *Routine Cardiovascular Exam Present: RRR - *Routine Abdominal Exam Present: soft - *Routine Extremities Exam Present: full ROM - *Routine Skin Exam Present: intact - *Routine Neurological Exam Present: alert, oriented X3, CN II-XII intact - Routine Psychiatric Exam Present: normal affect, normal thought process Results Labs on day of discharge: Labs from last 24 hours 02/13/18 02/13/18 02/13/18 06:00 06:00 05:47 WBC 5.4 D RBC 4.19 L Hgb 13.1 Hct 40.6 MCV 96.8 MCH 31.2 MCHC 32.2 RDW 14.0 Plt Count 118 L MPV 9.8 Neut % (Auto) 62.7 Lymph % (Auto) 28.4 [place] % (Auto) 5.6 Eos % (Auto) 3.0 Baso % (Auto) 0.3 Neut # (Auto) 3.4 Lymph # (Auto) 1.5 [place] # (Auto) 0.3 Eos # (Auto) 0.2 Baso # (Auto) 0.0 Sodium 138 Potassium 3.9 Chloride 107 Carbon Dioxide 29 Anion Gap 5.9 BUN 14 Creatinine 0.75 D Estimated Creat Clear 120 Estimated GFR 80 Est GFR ( Amer) 97 D Glucose 221 H POC Glucose 206 H Calcium 8.6 02/12/18 02/12/18 19:24 16:20 WBC RBC Hgb Hct MCV MCH MCHC RDW Plt Count MPV Neut % (Auto) Lymph % (Auto) [place] % (Auto) Eos % (Auto) Baso % (Auto) Neut # (Auto) Lymph # (Auto) [place] # (Auto) Eos # (Auto) Baso # (Auto) Sodium Potassium Chloride Carbon Dioxide Anion Gap BUN Creatinine Estimated Creat Clear Estimated GFR Est GFR ( Amer) Glucose POC Glucose 289 H 379 H* Calcium - Additional Comments Rounded with Dr. Bedolla all orders per [place] DS: Diagnosis - Discharge Diagnosis (1) Unstable angina Status: Acute (2) Diabetes Status: Acute (3) CAD (coronary artery disease) Status: Chronic (4) HHD (hypertensive heart disease) Status: Chronic (5) HLD (hyperlipidemia) Status: Chronic Discharge Plan - Patient Discharge Instructions ACTIVITY: Continue current activity DIET: continue same diet Patient Instructions: Type 2 Diabetes, Angina, Cardiac Catheterization, DI for Hyperglycemia -- Adult, Surgical Site Infection - Follow up Plan Follow up with: Osorio Phelps MD [Staff Physician] - 1 week Larry Bedolla MD [Primary Care Provider] - 1 week Disposition: Home, Self-Long-Term Medications: Home Medications Medication Instructions Recorded Confirmed Type Insulin Lispro Protamin/Lispro 50 unit SUB-Q BID 10/14/17 02/11/18 History [Humalog Mix 75/25 100 Units/mL 10mL Vial] Carvedilol [Carvedilol 25mg Tab] 25 mg PO BID 02/12/18 02/12/18 History Prescriptions/Medication Reconciliation: Continue gabapentin 600 mg tablet 600 mg PO TID 30 Days #90 tab insulin glargine (U-100) 100 unit/mL (3 mL) subcutaneous pen 20 unit SUB-Q QHS 30 Days #6 ml hydrocodone 5 mg-acetaminophen 325 mg tablet 1 tab PO TID PRN #90 tab PRN Reason: pain Insulin Lispro Protamin/Lispro [Humalog Mix 75/25 100 Units/mL 10mL Vial] 50 unit SUB-Q BID Atorvastatin Calcium [Lipitor 40mg Tablet] 40 mg PO QHS #90 tab Clopidogrel Bisulfate [Plavix 75mg Tab] 75 mg PO DAILY 30 Days #30 tab Lisinopril [Prinivil 20mg Tablet] 20 mg PO DAILY #30 tab Aspirin [Low Dose Aspirin EC] 81 mg PO DAILY 90 Days #90 tab No Action Carvedilol [Carvedilol 25mg Tab] 25 mg PO BID
== END 2018-02-13 13:05 | disposition home or self-care (01) ==
LOC: 2ND 16:57 → ER 16:57 → 2ND 19:48 → ICU 02-12 12:11
PROVIDERS: ADMIT Emergency Medicine; ATTEND Emergency Medicine

== ENCOUNTER → 2018-02-20 09:00 | Outpatient (REF) | payer MEDICAID, SELFPAY ==
[2018-02-20 14:11] LABS: Amphetamine/Metha Screen,Urine Negative ng/mL (<1000); Barbiturates Screen,Urine Negative ng/mL (<200); Benzodiazepines Screen,Urine Negative ng/mL (<200); Cannabinoid Screen,Urine Negative ng/mL (<50); Cocaine Screen,Urine Negative ng/mL (<300); Methadone Screen,Urine Negative ng/mL (<300); Opiate Screen,Urine Positive ng/mL (<300); Phencyclidine Screen,Urine Negative ng/mL (<25)
== END ==
LOC: LAB 09:00
PROVIDERS: Visit Provider Emergency Medicine
DX: Z79.899 Other long term (current) drug therapy (principal)
CPT/HCPCS: 80305

== ENCOUNTER → 2018-03-25 09:45 | Outpatient (CLI) | payer MEDICAID, SELFPAY ==
--- NOTE | 2018-03-25 09:46 | CA_ITS ---
PROCEDURE: 2-D M-mode and color Doppler study INDICATIONS FOR THE TEST: Chest pain COPD Heart Murmur Tobacco Smoking Palpitations+ Fatigue+ Syncope+ Edema Hypertension+Diabetes Mellitus+ Rheumatic Fever SOB+FUNK+Obesity Hyperlipidemia+ Family History HD Additional History 5 stents 2018 PATIENT INFORMATION HEIGHT: 66 WEIGHT: 192 GENDER: Female B/P: 142/70 2-D/M-MODE INTERPRETATION: 2-D MEASUREMENTS OBSERVED VALUES IN CMS Right Ventricular Dimension (RVDd) 1.7 Interventricular Septum (Thickness)(IVsd) 1.0 Left Ventricular Internal Dimensions(LVIDd) 5.2 Left Ventricular Posterior Wall (Thickness)(LVPWd) 0.9 Aortic Root 2.6 Aortic Cusp Separation 1.8 Left Atrial Dimensions (LAD) 4.1 2D 1. Left atrium is mildly enlarged, left ventricle is normal size, mild concentric left ventricular hypertrophy, visually estimated ejection fraction 55% with no obvious regional wall motion abnormality. 2. The right atrium and right ventricle are normal size and contractility. 3. The aortic valve is minimally thickened and calcified. Leaflet continue to display good mobility. 4. The mitral and tricuspid valve leaflets are minimally thickened. 5. The pulmonic valve is poorly visualized. 6. No significant pericardial effusion noted. DOPPLER INTERROGATION: Doppler interrogation of the aortic, mitral and tricuspid valve reveals presence of mild mitral and tricuspid regurgitation, tricuspid regurgitation jet velocity is insufficient for calculation of the right ventricular systolic pressure, grade 1 diastolic dysfunction seen with tissue Doppler evidence of raised left atrial pressure. CONCLUSION: 1. Mildly enlarged left atrium, normal left ventricular size, mild concentric left ventricular hypertrophy, visually estimated ejection fraction 55% with no obvious regional wall motion abnormality, grade 1 diastolic dysfunction seen with tissue Doppler evidence of raised left atrial pressure. 2. Mild mitral and tricuspid regurgitation 3. No significant pericardial effusion noted.
== END ==
PROVIDERS: Family Provider Emergency Medicine; PCP Emergency Medicine; Visit Provider Internal Medicine
DX: R07.9 Chest pain, unspecified (principal); E11.8 Type 2 diabetes mellitus with unspecified complications; E78.4 Other hyperlipidemia; I11.9 Hypertensive heart disease without heart failure; I20.0 Unstable angina; I25.118 Atherosclerotic heart disease of native coronary artery with other forms of angina pectoris; Z79.4 Long term (current) use of insulin
CPT/HCPCS: 93306

== ENCOUNTER 2018-03-26 08:50 | Outpatient (RCR) | payer MEDICAID, SELFPAY | END 2018-07-10 15:08 | disposition home or self-care (01) | LOC: PT 08:50 | PROVIDERS: Family Provider Emergency Medicine; PCP Emergency Medicine; Visit Provider Internal Medicine | DX: I25.10 Atherosclerotic heart disease of native coronary artery without angina pectoris (principal) | CPT/HCPCS: 93798 ==

== ENCOUNTER → 2018-03-27 09:56 | Outpatient (CLI) | payer MEDICAID, SELFPAY ==
[2018-03-27 13:44] LABS: Amphetamine/Metha Screen,Urine Negative ng/mL (<1000); Barbiturates Screen,Urine Negative ng/mL (<200); Benzodiazepines Screen,Urine Negative ng/mL (<200); Cannabinoid Screen,Urine Negative ng/mL (<50); Cocaine Screen,Urine Negative ng/mL (<300); Methadone Screen,Urine Negative ng/mL (<300); Opiate Screen,Urine Positive ng/mL (<300); Phencyclidine Screen,Urine Negative ng/mL (<25)
== END ==
PROVIDERS: Visit Provider Emergency Medicine
DX: Z79.899 Other long term (current) drug therapy (principal)
CPT/HCPCS: 80305

== ENCOUNTER → 2018-04-20 11:10 | Outpatient (REF) | payer MEDICAID, SELFPAY ==
[2018-04-20 15:24] LABS: Amphetamine/Metha Screen,Urine Negative ng/mL (<1000); Barbiturates Screen,Urine Negative ng/mL (<200); Benzodiazepines Screen,Urine Negative ng/mL (<200); Cannabinoid Screen,Urine Negative ng/mL (<50); Cocaine Screen,Urine Negative ng/mL (<300); Methadone Screen,Urine Negative ng/mL (<300); Opiate Screen,Urine Positive ng/mL (<300); Phencyclidine Screen,Urine Negative ng/mL (<25)
== END ==
LOC: LAB 11:10
PROVIDERS: Visit Provider Emergency Medicine
DX: Z79.899 Other long term (current) drug therapy (principal)
CPT/HCPCS: 80305

== ENCOUNTER → 2018-04-30 07:42 | Outpatient (CLI) | payer MEDICAID, SELFPAY ==
--- NOTE | 2018-04-30 07:43 | MR_ITS ---
MR lumbar spine wo con, MR 3-d myelogram/MRCP HISTORY: LT sided LBP with LT Hip pain. Pain is so bad it hurts to walk. Pain Radiates down LT leg. Symptoms X1YR. ITS.REASON: back pain ORDERING PHYSICIAN: Larry Bedolla MD PATIENT AGE: 58 years Comparison: MRI 04-02-17 TECHNIQUE: Standard multiplanar multiecho sequences are performed without contrast. 3-D MIP and myelographic images are also rendered and reviewed FINDINGS: There is normal alignment. The spinal cord ends at the T12-L1 level. There is mild dextrocurvature of the lumbar spine L1-L2: Minimal disc desiccation. L2-L3: Minimal disc desiccation with mild facet and ligamentum flavum hypertrophy. L3-L4: Concentric bulging disc with facet and ligamentum flavum hypertrophy causing moderate to severe bilateral lateral recess narrowing and moderate bilateral foraminal narrowing. There is canal stenosis at this level at 10 mm. L4-L5: Mild bulging disc along with mild facet and ligamentum flavum hypertrophy with mild bilateral lateral recess and foraminal narrowing. L5-S1: Minimal bulging disc with mild facet hypertrophic change. Incidental note made of mild prominence of the left renal pelvis. There is a 13 mm lesion involving the lower pole the left kidney anteriorly slightly hyperintense on T1 and hypointense on T2 and may represent a hemorrhagic cyst. Hemangioma involves the T12 vertebral body as before. IMPRESSION: 1. Bulging disc with moderate to severe facet and ligamentum flavum hypertrophy at L3-L4 causing moderate to severe bilateral lateral recess and moderate bilateral foraminal narrowing with canal stenosis. This is not significantly changed 2. Mild bulging disc at L4-L5 with mild bilateral lateral recess and foraminal narrowing. Not significant changed 3. Minimal bulging disc at L5-S1. 4. No extruded herniated disc evident 5. Increasing prominence of the left renal collecting system with possible hemorrhagic cyst along the lower pole of the left kidney.
== END ==
PROVIDERS: Family Provider Emergency Medicine; PCP Emergency Medicine; Visit Provider Emergency Medicine
DX: M54.9 Dorsalgia, unspecified (principal); M54.5 Low back pain
CPT/HCPCS: 72148; 76376

== ENCOUNTER → 2018-05-04 10:53 | Outpatient (CLI) | payer MEDICAID, SELFPAY ==
--- NOTE | 2018-05-04 10:55 | NM_ITS ---
History and Indications: Coronary artery disease, hypertension, diabetes, hyperlipidemia, chest pain, shortness of breath, palpitations and fatigue Procedure: Patient received a 0.4 mg of intravenous Lexiscan, resting heart rate was 80 bpm resting blood pressure 116/57, with Lexiscan maximum heart rate achieved was its per minute which is less than 85% of the maximum predicted heart rate and a blood pressure was 95/53. With Lexiscan patient complained of shortness of breath. Electrocardiogram: Resting echocardiogram showed sinus rhythm nonspecific ST-T changes, with Lexiscan less than 1.5 ST segment depression noted from the baseline EKG. The EKG portion of the Lexiscan Myoview is nondiagnostic. Cardiac stress and resting SPECT images: Cardiac stress and resting SPECT images were obtained using technetium 99 Myoview 30.8 mCi at stress than 10.6 mCi at rest. Gated SPECT further analysis of segmental wall motion and calculation of the ejection fraction also done. Cardiac stress and rest SPECT images show uniform myocardial activity without segmental perfusion abnormality, computer derived ejection fraction is 53% with no regional wall motion abnormality, however there appears to be a transient ischemic dilatation of the left ventricle, raising the concern for presence of balanced ischemia. Conclusion: 1. The EKG portion of the Lexiscan Myoview is nondiagnostic. 2. No obvious scintigraphic evidence of reversible ischemia seen, computer derived ejection fraction is 53% with no regional wall motion abnormality, however there appears to be transient ischemic dilatation of the left ventricle, raising the concern is for presence of balanced ischemia. 3. Abnormal Lexiscan Myoview study.
[2018-05-04 11:43] LABS: POC Glucose,Bedside 413 (70-110)
[2018-05-04 15:27] LABS: POC Glucose,Bedside 395 (70-110)
== END ==
PROVIDERS: Family Provider Emergency Medicine; PCP Emergency Medicine; Visit Provider Internal Medicine
DX: I20.9 Angina pectoris, unspecified (principal); I25.10 Atherosclerotic heart disease of native coronary artery without angina pectoris; E11.9 Type 2 diabetes mellitus without complications; E78.5 Hyperlipidemia, unspecified; I11.9 Hypertensive heart disease without heart failure
CPT/HCPCS: 78452; 82962; A9502

== ENCOUNTER → 2018-05-12 06:09 | Outpatient (CLI) | payer MEDICAID, SELFPAY | PROVIDERS: Family Provider Emergency Medicine; PCP Emergency Medicine; Visit Provider Internal Medicine Cardiovascular Disease | DX: E11.8 Type 2 diabetes mellitus with unspecified complications (principal); I25.118 Atherosclerotic heart disease of native coronary artery with other forms of angina pectoris; R07.9 Chest pain, unspecified | CPT/HCPCS: 93017; J2785 ==

== ENCOUNTER → 2018-05-18 13:00 | Outpatient (POV) | payer MEDICAID, SELFPAY ==
[2018-05-18 13:39] VITALS: BP 142/83; PULSE 73; RESP 18; O2SAT 98; BMI 32.1
--- NOTE | 2018-05-18 14:18 | HMH.PAINSOAP ---
[facility] Pain Management SOAP Note Subjective:: Patient is a pleasant 58-year-old white female who presents today for follow-up. Patient has had a new MRI. Patient is being sent to a neurosurgeon by her primary care physician. Patient has not had any injective therapy and states that she is scared of it. I encouraged her to think about had a lumbar epidural steroid injection. Patient would like to try 1 of these. Patient's tried and failed physical therapy, anti-inflammatories are not advised for her due to her cardiac history. Patient is continuing home stretching. Patient is on Plavix by Dr. Raisa addison. We will see if she can come off of this for injective therapy. ROS General: no recent weight change, no fever, no sleep disturbances Respiratory: no cough, no shortness of air, no recurring pulmonary infections Cardiovascular/Peripheral Vascular: No chest pain, No palpitations, no edema, no shortness of breath. Gastrointestinal: no incontinence, normal bowel movements reported Genitourinary: no incontinence Musculoskeletal: Back pain Psychiatric: normal mood/ affect Neurological: [denies weakness in extremities], [denies balance issues] Objective:: Physical Exam General: Alert and oriented x3, no acute distress, pleasant and cooperative, [on room air] Lungs: Resps E/U, Symmetrical chest expansion, Eyes: PERRL Musculoskeletal: Flexion and extension of lumbar spine somewhat guarded secondary to pain, deep tendon reflexes normal, strength in upper and lower extremities [5/5], [abnormal gait noted], straight leg raise test bilaterally at 30 degrees Neurological: speech clear, refinery operator vapor recovery unit equal, no gross sensory deficits Assessment:: Degenerative disc disease lumbar spine with lumbar radiculopathy Plan:: We will schedule L4-L5 lumbar epidural steroid injection for the patient. Patient is on anticoagulation therapy from Dr. Raisa addison we will get permission to see if she can come off of her anticoagulation therapy. This note was dictated using voice recognition software and may contain errors or omissions
--- NOTE | 2018-05-18 14:21 | P.CONS_ITS ---
[facility] Pain Management SOAP Note Subjective:: Patient is a pleasant 58-year-old white female who presents today for follow-up. Patient has had a new MRI. Patient is being sent to a neurosurgeon by her primary care physician. Patient has not had any injective therapy and states that she is scared of it. I encouraged her to think about had a lumbar epidural steroid injection. Patient would like to try 1 of these. Patient's tried and failed physical therapy, anti-inflammatories are not advised for her due to her cardiac history. Patient is continuing home stretching. Patient is on Plavix by Dr. Raisa addison. We will see if she can come off of this for injective therapy. ROS General: no recent weight change, no fever, no sleep disturbances Respiratory: no cough, no shortness of air, no recurring pulmonary infections Cardiovascular/Peripheral Vascular: No chest pain, No palpitations, no edema, no shortness of breath. Gastrointestinal: no incontinence, normal bowel movements reported Genitourinary: no incontinence Musculoskeletal: Back pain Psychiatric: normal mood/ affect Neurological: [denies weakness in extremities], [denies balance issues] Objective:: Physical Exam General: Alert and oriented x3, no acute distress, pleasant and cooperative, [on room air] Lungs: Resps E/U, Symmetrical chest expansion, Eyes: PERRL Musculoskeletal: Flexion and extension of lumbar spine somewhat guarded secondary to pain, deep tendon reflexes normal, strength in upper and lower extremities [5/5], [abnormal gait noted], straight leg raise test bilaterally at 30 degrees Neurological: speech clear, cork wirer equal, no gross sensory deficits Assessment:: Degenerative disc disease lumbar spine with lumbar radiculopathy Plan:: We will schedule L4-L5 lumbar epidural steroid injection for the patient. Patient is on anticoagulation therapy from Dr. Raisa addison we will get permission to see if she can come off of her anticoagulation therapy. This note was dictated using voice recognition software and may contain errors or omissions
== END ==
PROVIDERS: Family Provider Emergency Medicine; PCP Emergency Medicine; Visit Provider Clinical Nurse Specialist Family Health
DX: M51.16 Intervertebral disc disorders with radiculopathy, lumbar region (principal)
CPT/HCPCS: 99213

== ENCOUNTER → 2018-05-26 13:13 | Outpatient (CLI) | payer MEDICAID, SELFPAY ==
[2018-05-26 14:37] LABS: Amphetamine/Metha Screen,Urine Negative ng/mL (<1000); Barbiturates Screen,Urine Negative ng/mL (<200); Benzodiazepines Screen,Urine Negative ng/mL (<200); Cannabinoid Screen,Urine Negative ng/mL (<50); Cocaine Screen,Urine Negative ng/mL (<300); Methadone Screen,Urine Negative ng/mL (<300); Opiate Screen,Urine Positive ng/mL (<300); Phencyclidine Screen,Urine Negative ng/mL (<25)
== END ==
PROVIDERS: PCP Emergency Medicine; Visit Provider Emergency Medicine
DX: Z79.899 Other long term (current) drug therapy (principal)
CPT/HCPCS: 80305

== ENCOUNTER → 2018-06-24 13:18 | Outpatient (CLI) | payer MEDICAID, SELFPAY ==
[2018-06-24 15:03] LABS: Blood Urea Nitrogen 7 mg/dL (7-18); Calcium 8.8 mg/dL (8.5-10.1); Carbon Dioxide 30 mmol/L (21.0-32.0); Chloride 103 mmol/L (98-107); Creatinine,Serum 0.98 mg/dL (0.55-1.02); Estimated Glomerular Filt Rate 59 ml/min (>60); GFR (African American) 71 ML/MIN (>60); Glucose 184 mg/dL (74-106); Sodium 140 mmol/L (136-145)
[2018-06-24 15:50] LABS: Amphetamine/Metha Screen,Urine Negative ng/mL (<1000); Barbiturates Screen,Urine Negative ng/mL (<200); Benzodiazepines Screen,Urine Negative ng/mL (<200); Cannabinoid Screen,Urine Negative ng/mL (<50); Cocaine Screen,Urine Negative ng/mL (<300); Methadone Screen,Urine Negative ng/mL (<300); Opiate Screen,Urine Positive ng/mL (<300); Phencyclidine Screen,Urine Negative ng/mL (<25)
== END ==
PROVIDERS: Visit Provider Emergency Medicine
DX: Z79.899 Other long term (current) drug therapy (principal); E11.9 Type 2 diabetes mellitus without complications
CPT/HCPCS: 80048; 80305

== ENCOUNTER → 2018-06-24 15:48 | Outpatient (POV) | payer MEDICAID, SELFPAY | PROVIDERS: Visit Provider Emergency Medicine | DX: Z00.00 Encounter for general adult medical examination without abnormal findings (principal) ==

== ENCOUNTER → 2018-07-22 14:07 | Outpatient (CLI) | payer MEDICAID, SELFPAY ==
[2018-07-22 16:21] LABS: Amphetamine/Metha Screen,Urine Negative ng/mL (<1000); Barbiturates Screen,Urine Negative ng/mL (<200); Benzodiazepines Screen,Urine Negative ng/mL (<200); Cannabinoid Screen,Urine Negative ng/mL (<50); Cocaine Screen,Urine Negative ng/mL (<300); Methadone Screen,Urine Negative ng/mL (<300); Opiate Screen,Urine Positive ng/mL (<300); Phencyclidine Screen,Urine Negative ng/mL (<25)
== END ==
PROVIDERS: Visit Provider Emergency Medicine
DX: Z79.899 Other long term (current) drug therapy (principal)
CPT/HCPCS: 80305

== ENCOUNTER → 2018-08-20 09:34 | Outpatient (CLI) | payer MEDICAID, SELFPAY ==
--- NOTE | 2018-08-20 09:37 | XR_ITS ---
EXAM: XR cervical spine 5V HISTORY: Left shoulder pain and arm pain ITS.REASON: left arm pain ORDERING PHYSICIAN: Steven Bryant MD PATIENT AGE: 58 years COMPARISON: None FINDINGS: Normal alignment. No fracture or dislocation. No lytic or blastic change. Degenerative disc disease is present at C6-C7. No foraminal narrowing. No lytic or blastic change. No evidence of cervical rib. IMPRESSION: Degenerative disc disease C6-C7
== END ==
PROVIDERS: PCP Emergency Medicine; Visit Provider Internal Medicine Cardiovascular Disease
DX: M54.2 Cervicalgia (principal); M79.602 Pain in left arm
CPT/HCPCS: 72050

== ENCOUNTER → 2018-08-21 13:42 | Outpatient (CLI) | payer MEDICAID, SELFPAY ==
[2018-08-21 15:06] LABS: Amphetamine/Metha Screen,Urine Negative ng/mL (<1000); Barbiturates Screen,Urine Negative ng/mL (<200); Benzodiazepines Screen,Urine Negative ng/mL (<200); Cannabinoid Screen,Urine Negative ng/mL (<50); Cocaine Screen,Urine Negative ng/mL (<300); Methadone Screen,Urine Negative ng/mL (<300); Opiate Screen,Urine Positive ng/mL (<300); Phencyclidine Screen,Urine Negative ng/mL (<25)
== END ==
PROVIDERS: Visit Provider Emergency Medicine
DX: Z79.899 Other long term (current) drug therapy (principal)
CPT/HCPCS: 80305

== ENCOUNTER → 2018-08-28 10:52 | Outpatient (CLI) | payer MEDICAID, SELFPAY ==
[2018-08-28 10:55] LABS: Microscopic, Urine URINE MICROSCOPIC (MICROSCOPIC)
[2018-08-28 11:18] LABS: Basophils % 0.4 % (0.1-2.0); Eosinophils # 0.1 K/mm3 (0.0-0.4); Eosinophils % 1.6 % (0.1-12.0); Hematocrit 48.5 % (37.0-47.0); Hemoglobin 15.3 g/dL (12.2-16.2); Lymphocytes # 1.4 K/mm3 (0.7-4.5); Lymphocytes % 32.4 % (10-50); Mean Corpuscular HGB Conc 31.6 g/dL (31.8-35.4); Mean Corpuscular Hemoglobin 31.7 pg (27.0-31.2); Mean Corpuscular Volume 100.4 fl (81-99); Monocytes # 0.2 K/mm3 (0.1-1.0); Monocytes % 5.2 % (1.7-9.3); Neutrophils # 2.7 K/mm3 (1.8-7.8); Neutrophils % 60.5 % (37.0-80.0); Platelet Count 153 K/mm3 (142-424); Red Blood Count 4.83 M/mm3 (4.20-5.40); Red Cell Distribution Width 13.4 % (11.5-17.5); White Blood Count 4.4 K/mm3 (4.8-10.8)
[2018-08-28 11:41] LABS: Appearance,Urine CLEAR (Clear); Bilirubin,Urine Negative (Negative); Blood, Urine Negative (Negative); Color,Urine YELLOW (Yellow); Glucose,Urine (UA) 3+ (Negative); Ketones,Urine Negative (Negative); Leukocyte Esterase,Urine Negative (Negative); Nitrate,Urine Negative (Negative); Protein,Urine Negative (Negative); Urobilinogen,Urine 0.2 EU/dl (0.2)
[2018-08-28 11:59] LABS: Albumin Level 3.4 gm/dL (3.4-5.0); Anion Gap 10.8 mEq/L (5-15); Blood Urea Nitrogen 12 mg/dL (7-18); Calcium 9.3 mg/dL (8.5-10.1); Carbon Dioxide 32 mmol/L (21.0-32.0); Chloride 101 mmol/L (98-107); Creatinine,Serum 1.17 mg/dL (0.55-1.02); Estimated Glomerular Filt Rate 48 ml/min (>60); GFR (African American) 58 ML/MIN (>60); Phosphorous 4.3 mg/dL (2.4-4.9); Potassium 4.8 mmoL/L (3.5-5.1); Sodium 139 mmol/L (136-145)
[2018-08-28 12:16] LABS: Glucose 441 mg/dL (74-106)
[2018-08-28 12:17] LABS: RBC,Urine Occasional #/hpf (0-3)
[2018-08-28 12:18] LABS: Bacteria,Urine Trace /lpf; Squamous Epithelial Cell,Urine 20-50 #/hpf (0-5); Yeast,Urine Occasional /lpf
[2018-08-28 14:30] LABS: Creatinine,Urine Random 54 mg/dL (20-320)
[2018-08-28 14:34] LABS: Total Protein,Urine Random < 6.0 mg/dL (0.0-11.9)
[2018-08-29 12:58] LABS: Vitamin D 25 Hydroxy 10.3 ng/mL (30.0-100.0)
[2018-08-29 19:32] LABS: Parathyroid Hormone Intact 50 pg/mL (15-65)
== END ==
PROVIDERS: Visit Provider Internal Medicine Nephrology
DX: N18.9 Chronic kidney disease, unspecified (principal); E55.9 Vitamin D deficiency, unspecified
CPT/HCPCS: 36415; 80069; 81001; 82570; 82652; 83970; 84155; 85025

== ENCOUNTER → 2018-09-03 14:21 | Outpatient (POV) | payer MEDICAID, SELFPAY | PROVIDERS: Visit Provider Internal Medicine Nephrology | DX: Z00.00 Encounter for general adult medical examination without abnormal findings (principal) ==

== ENCOUNTER → 2018-10-20 09:22 | Outpatient (POV) | payer MEDICAID, SELFPAY ==
[2018-10-20 09:23] VITALS: BP 151/98; PULSE 99; RESP 18; O2SAT 98; BMI 31.1
--- NOTE | 2018-10-20 09:38 | HMH.PAINSOAP ---
[facility] Pain Management SOAP Note Subjective:: Patient is a pleasant 58-year-old white female who presents today for follow-up. Patient has not had injective therapy and states that she would like to try it. She is going to go see neurosurgery. Patient's tried and failed physical therapy, anti-inflammatories are not advised due to her cardiac history. She is continuing a home stretching therapy. Patient states her pain is in her low back radiating into bilateral legs. She rates her pain a 6 out of 10 today. ROS General: no recent weight change, no fever, no sleep disturbances Respiratory: no cough, no shortness of air, no recurring pulmonary infections Cardiovascular/Peripheral Vascular: No chest pain, No palpitations, no edema, no shortness of breath. Gastrointestinal: no incontinence, normal bowel movements reported Genitourinary: no incontinence Musculoskeletal: Back pain, leg pain Psychiatric: normal mood/ affect, Neurological: [denies weakness in extremities], [denies balance issues] Objective:: Physical Exam General: Alert and oriented x3, no acute distress, pleasant and cooperative, [on room air] Lungs: Resps E/U, Symmetrical chest expansion, Eyes: PERRL Musculoskeletal: Flexion and extension of lumbar spine somewhat guarded secondary to pain, deep tendon reflexes normal, strength in upper and lower extremities [5/5], antalgic gait noted, positive straight leg raise test bilaterally at 30 degrees Neurological: speech clear, woodwind instrument repairer equal, no gross sensory deficits Assessment:: Degenerative disc disease lumbar spine with lumbar radiculopathy Plan:: We will schedule an L4-L5 lumbar epidural steroid injection for the patient. Patient does not have permission at this time to come off of her blood thinner we will ask her subcontracts manager if this will be something that she can do. Dr. Bernardo has reviewed this note and agrees with this plan of care. This note was dictated using voice recognition software and may contain errors or omissions
--- NOTE | 2018-10-20 09:41 | P.CONS_ITS ---
[facility] Pain Management SOAP Note Subjective:: Patient is a pleasant 58-year-old white female who presents today for follow-up. Patient has not had injective therapy and states that she would like to try it. She is going to go see neurosurgery. Patient's tried and failed physical therapy, anti-inflammatories are not advised due to her cardiac history. She is continuing a home stretching therapy. Patient states her pain is in her low back radiating into bilateral legs. She rates her pain a 6 out of 10 today. ROS General: no recent weight change, no fever, no sleep disturbances Respiratory: no cough, no shortness of air, no recurring pulmonary infections Cardiovascular/Peripheral Vascular: No chest pain, No palpitations, no edema, no shortness of breath. Gastrointestinal: no incontinence, normal bowel movements reported Genitourinary: no incontinence Musculoskeletal: Back pain, leg pain Psychiatric: normal mood/ affect, Neurological: [denies weakness in extremities], [denies balance issues] Objective:: Physical Exam General: Alert and oriented x3, no acute distress, pleasant and cooperative, [on room air] Lungs: Resps E/U, Symmetrical chest expansion, Eyes: PERRL Musculoskeletal: Flexion and extension of lumbar spine somewhat guarded secondary to pain, deep tendon reflexes normal, strength in upper and lower extremities [5/5], antalgic gait noted, positive straight leg raise test bilaterally at 30 degrees Neurological: speech clear, turkish line attendant equal, no gross sensory deficits Assessment:: Degenerative disc disease lumbar spine with lumbar radiculopathy Plan:: We will schedule an L4-L5 lumbar epidural steroid injection for the patient. Patient does not have permission at this time to come off of her blood thinner we will ask her switchboard operator helper if this will be something that she can do. Dr. Bernardo has reviewed this note and agrees with this plan of care. This note was dictated using voice recognition software and may contain errors or omissions
== END ==
PROVIDERS: PCP Emergency Medicine; Visit Provider Clinical Nurse Specialist Family Health
DX: M51.16 Intervertebral disc disorders with radiculopathy, lumbar region (principal)
CPT/HCPCS: 99213

== ENCOUNTER → 2018-10-21 13:35 | Outpatient (CLI) | payer MEDICAID, SELFPAY ==
[2018-10-21 14:45] LABS: Hemoglobin A1C 10.1 % (0.0-7.0)
[2018-10-21 14:56] LABS: Amphetamine/Metha Screen,Urine Negative ng/mL (<1000); Barbiturates Screen,Urine Negative ng/mL (<200); Benzodiazepines Screen,Urine Negative ng/mL (<200); Cannabinoid Screen,Urine Negative ng/mL (<50); Cocaine Screen,Urine Negative ng/mL (<300); Methadone Screen,Urine Negative ng/mL (<300); Opiate Screen,Urine Positive ng/mL (<300); Phencyclidine Screen,Urine Negative ng/mL (<25)
[2018-10-23 19:58] LABS: Microalbumin, Urine 44.4 ug/mL (Not Estab.)
== END ==
PROVIDERS: Visit Provider Emergency Medicine
DX: E10.65 Type 1 diabetes mellitus with hyperglycemia (principal); Z79.899 Other long term (current) drug therapy
CPT/HCPCS: 80305; 82043; 83036

== ENCOUNTER → 2018-12-18 13:49 | Outpatient (CLI) | payer MEDICAID, SELFPAY ==
[2018-12-18 15:08] LABS: Amphetamine/Metha Screen,Urine Negative ng/mL (<1000); Barbiturates Screen,Urine Negative ng/mL (<200); Benzodiazepines Screen,Urine Negative ng/mL (<200); Cannabinoid Screen,Urine Negative ng/mL (<50); Cocaine Screen,Urine Negative ng/mL (<300); Methadone Screen,Urine Negative ng/mL (<300); Opiate Screen,Urine Positive ng/mL (<300); Phencyclidine Screen,Urine Negative ng/mL (<25)
[2018-12-28 06:08] LABS: Codeine Negative (Cutoff=100); Hydrocodone Positive (.); Hydromorphone Negative (Cutoff=100); Morphine Negative (Cutoff=100)
[2018-12-29 09:48] LABS: Hydrocodone Confirm 2862 ng/mL (Cutoff=100); Opiates Positive (.)
== END ==
PROVIDERS: Visit Provider Emergency Medicine
DX: Z79.899 Other long term (current) drug therapy (principal)
CPT/HCPCS: 80305; 80361; G0480

== ENCOUNTER → 2018-12-22 14:10 | Outpatient (CLI) | payer MEDICAID, SELFPAY ==
--- NOTE | 2018-12-22 14:24 | MR_ITS ---
MR cervical spine wo con, MR 3-d myelogram/MRCP HISTORY: Neck pain and left arm pain with numbness and tingling ITS.REASON: NECK PAIN ORDERING PHYSICIAN: Jairo Fierro PATIENT AGE: 58 years Comparison: 01/14/2017 TECHNIQUE: Standard multiplanar multiecho sequences are performed without contrast. 3-D MIP and myelographic images are also rendered and reviewed FINDINGS: There is normal alignment. There is mild hypertrophic change at the odontoid region with canal stenosis at the craniocervical junction of 8 mm. C2-C3: Unremarkable. C3-C4: Minimal central disc protrusion with narrowing of the canal is 10 mm without impingement. C4-C5: Bulging disc with central disc protrusion with canal stenosis at 8 mm. The small central disc protrusion does impinge upon the anterior aspect of the cord causing mild deformity anteriorly C5-C6: Broad-based bulging disc with canal stenosis of 8 mm with mild impingement and indentation upon the anterior aspect of the cord. C6-C7: There is degenerative disc disease at C6-C7 with a medium-sized central/left paracentral disc herniation. This is causing severe canal stenosis of 6 mm and is causing moderate impingement and compression upon the anterior left aspect of the cord as well as causing left lateral recess narrowing. Schmorl's node is present along the superior endplate of C7 with slight increase in T2 signal at the endplate C7-T1: Mild degenerative disc disease. T1-T2: Mild degenerative disc disease. IMPRESSION: 1. Abnormal MRI of the cervical spine with multilevel disc protrusions degenerative disc disease and canal stenosis with minimal central disc protrusion at C3-C4, small central disc protrusion at C4-C5 with mild impingement upon the cord, broad-based bulging disc with canal stenosis and with canal stenosis at C5-C6 with impingement upon the cord anteriorly 2. There is degenerative disc disease at C6-C7 with a medium-sized central/left paracentral disc herniation. This is causing severe canal stenosis of 6 mm and is causing moderate to severe impingement and compression upon the anterior left aspect of the cord as well as causing left lateral recess narrowing. 3. Hypertrophy of the odontoid process with canal stenosis at the craniocervical junction
== END ==
PROVIDERS: PCP Emergency Medicine; Visit Provider Orthopaedic Surgery
DX: M54.2 Cervicalgia (principal)
CPT/HCPCS: 72141; 76376

== ENCOUNTER → 2019-02-15 13:17 | Outpatient (CLI) | payer MEDICAID, SELFPAY ==
[2019-02-15 14:24] LABS: Amphetamine/Metha Screen,Urine Negative ng/mL (<1000); Barbiturates Screen,Urine Negative ng/mL (<200); Benzodiazepines Screen,Urine Negative ng/mL (<200); Cannabinoid Screen,Urine Negative ng/mL (<50); Cocaine Screen,Urine Negative ng/mL (<300); Methadone Screen,Urine Negative ng/mL (<300); Opiate Screen,Urine Positive ng/mL (<300); Phencyclidine Screen,Urine Negative ng/mL (<25)
[2019-02-15 15:52] LABS: Alanine Aminotransferase 44 U/L (12-78); Albumin Level 3.2 gm/dL (3.4-5.0); Albumin/Globulin Ratio 0.8 (1.1-1.8); Alkaline Phosphatase 153 U/L (46-116); Anion Gap 9.8 mEq/L (5-15); Aspartate Amino Transferase 34 U/L (15-37); Bilirubin,Total 0.8 mg/dL (0.2-1.0); Blood Urea Nitrogen 17 mg/dL (7-18); Calcium 9.2 mg/dL (8.5-10.1); Carbon Dioxide 30 mmol/L (21.0-32.0); Chloride 105 mmol/L (98-107); Creatinine,Serum 1.01 mg/dL (0.55-1.02); Estimated Glomerular Filt Rate 57 ml/min (>60); GFR (African American) 69 ML/MIN (>60); Glucose 132 mg/dL (74-106); Potassium 3.8 mmoL/L (3.5-5.1); Sodium 141 mmol/L (136-145); Total Protein,Serum 7.2 gm/dL (6.4-8.2)
== END ==
PROVIDERS: Visit Provider Emergency Medicine
DX: Z79.899 Other long term (current) drug therapy (principal); E11.9 Type 2 diabetes mellitus without complications; Z79.4 Long term (current) use of insulin; Z79.84 Long term (current) use of oral hypoglycemic drugs
CPT/HCPCS: 80053; 80305; 83036

== ENCOUNTER → 2019-03-08 15:35 | Outpatient (POV) | payer MEDICAID, SELFPAY | PROVIDERS: Visit Provider Internal Medicine Nephrology | DX: Z00.00 Encounter for general adult medical examination without abnormal findings (principal) ==

== ENCOUNTER → 2019-04-26 13:24 | Outpatient (CLI) | payer MEDICAID, SELFPAY ==
[2019-04-26 15:17] LABS: Amphetamine/Metha Screen,Urine Negative ng/mL (<1000); Barbiturates Screen,Urine Negative ng/mL (<200); Benzodiazepines Screen,Urine Negative ng/mL (<200); Cannabinoid Screen,Urine Negative ng/mL (<50); Cocaine Screen,Urine Negative ng/mL (<300); Methadone Screen,Urine Negative ng/mL (<300); Opiate Screen,Urine Positive ng/mL (<300); Phencyclidine Screen,Urine Negative ng/mL (<25)
== END ==
PROVIDERS: Visit Provider Emergency Medicine
DX: Z79.899 Other long term (current) drug therapy (principal)
CPT/HCPCS: 80305

== ENCOUNTER → 2019-05-26 13:27 | Outpatient (CLI) | payer MEDICAID, SELFPAY ==
[2019-05-26 13:55] LABS: Alanine Aminotransferase 31 U/L (12-78); Albumin Level 3.6 gm/dL (3.4-5.0); Albumin/Globulin Ratio 0.9 (1.1-1.8); Alkaline Phosphatase 111 U/L (46-116); Anion Gap 10.9 mEq/L (5-15); Aspartate Amino Transferase 26 U/L (15-37); Bilirubin,Total 0.7 mg/dL (0.2-1.0); Blood Urea Nitrogen 8 mg/dL (7-18); Calcium 9.4 mg/dL (8.5-10.1); Carbon Dioxide 30 mmol/L (21.0-32.0); Chloride 106 mmol/L (98-107); Chol/HDL Ratio 2.4 (1-3.5); Cholesterol 100 mg/dL (140-200); Creatinine,Serum 0.95 mg/dL (0.55-1.02); Estimated Glomerular Filt Rate 61 ml/min (>60); Free T4 (Free Thyroxine) 1.04 ng/dl (0.76-1.46); GFR (African American) 73 ML/MIN (>60); Globulin 4.2 gm/dl (1.3-3.2); Glucose 89 mg/dL (74-106); HDL Cholesterol 42 mg/dL (29-89); LDL Cholesterol 39 mg/dL (0-130); Potassium 3.9 mmoL/L (3.5-5.1); Sodium 143 mmol/L (136-145); Thyroid Stimulating Hormone 0.47 uIU/ml (0.358-3.740); Total Protein,Serum 7.8 gm/dL (6.4-8.2); Triglycerides 97 mg/dL (30-200); VLDL Cholesterol 19 mg/dL (0-40)
[2019-05-26 14:16] LABS: Basophils % 0.4 % (0.1-2.0); Eosinophils # 0.1 K/mm3 (0.0-0.4); Eosinophils % 2.4 % (0.1-12.0); Hematocrit 47.2 % (37.0-47.0); Hemoglobin 15.3 g/dL (12.2-16.2); Lymphocytes # 2.2 K/mm3 (0.7-4.5); Lymphocytes % 37.2 % (10-50); Mean Corpuscular HGB Conc 32.3 g/dL (31.8-35.4); Mean Corpuscular Hemoglobin 31.2 pg (27.0-31.2); Mean Corpuscular Volume 96.5 fl (81-99); Mean Platelet Volume 10.8 fl (7.4-10.4); Monocytes # 0.3 K/mm3 (0.1-1.0); Monocytes % 4.7 % (1.7-9.3); Neutrophils # 3.3 K/mm3 (1.8-7.8); Neutrophils % 55.2 % (37.0-80.0); Platelet Count 164 K/mm3 (142-424); Red Blood Count 4.89 M/mm3 (4.20-5.40); Red Cell Distribution Width 13.8 % (11.5-17.5)
[2019-05-26 14:21] LABS: Hemoglobin A1C 10.7 % (0.0-7.0)
[2019-05-26 14:39] LABS: Amphetamine/Metha Screen,Urine Negative ng/mL (<1000); Barbiturates Screen,Urine Negative ng/mL (<200); Benzodiazepines Screen,Urine Negative ng/mL (<200); Cannabinoid Screen,Urine Negative ng/mL (<50); Cocaine Screen,Urine Negative ng/mL (<300); Methadone Screen,Urine Negative ng/mL (<300); Opiate Screen,Urine Positive ng/mL (<300); Phencyclidine Screen,Urine Negative ng/mL (<25)
[2019-05-27 10:57] LABS: Vitamin D 25 Hydroxy 16.3 ng/mL (30.0-100.0)
== END ==
PROVIDERS: Visit Provider Emergency Medicine
DX: Z79.899 Other long term (current) drug therapy (principal); I10 Essential (primary) hypertension
CPT/HCPCS: 80053; 80061; 80305; 82652; 83036; 84439; 84443; 85025

== ENCOUNTER → 2019-05-28 08:18 | Outpatient (CLI) | payer MEDICAID, SELFPAY ==
--- NOTE | 2019-05-28 08:22 | MM_ITS ---
PROCEDURE: MM DIG SCREENING MAMM BI W/CAD CLINICAL INDICATION: Screening There is no personal or family history of breast cancer. COMPARISON: None, this is baseline TECHNIQUE: Standard CC and MLO images were obtained. R2 CAD reviewed. FINDINGS: Moderate diffuse fibroglandular densities are seen throughout both breasts. There are few benign-appearing microcalcifications in each breast. There is no suspicious lesion and no suspicious microcalcifications. IMPRESSION: Fibrofatty parenchyma with no suspicious lesions seen BI-RAD Category: 2 Benign Finding(s) FOLLOW-UP: 1YR 1 Year Follow-up (A letter has been sent to the patient regarding results of the study.) Dictated by: Dr. Jarvis Tuttle MD 05/31/2019 09:[address] Jarvis Tuttle MD in [place] 05/31/2019 09:43
== END ==
PROVIDERS: PCP Emergency Medicine; Visit Provider Emergency Medicine
DX: Z12.31 Encounter for screening mammogram for malignant neoplasm of breast (principal); Z12.11 Encounter for screening for malignant neoplasm of colon
CPT/HCPCS: 77067

== ENCOUNTER 2019-06-14 03:55 | Inpatient (IN) ==
[2019-06-14 04:41] LABS: Basophils % 0.3 % (0.1-2.0); Eosinophils % 0.3 % (0.1-12.0); Hematocrit 46.6 % (37.0-47.0); Hemoglobin 14.6 g/dL (12.2-16.2); Lymphocytes # 0.5 K/mm3 (0.7-4.5); Lymphocytes % 10.8 % (10-50); Mean Corpuscular HGB Conc 31.4 g/dL (31.8-35.4); Mean Platelet Volume 11.1 fl (7.4-10.4); Monocytes # 0.1 K/mm3 (0.1-1.0); Monocytes % 1.7 % (1.7-9.3); Neutrophils # 3.6 K/mm3 (1.8-7.8); Platelet Count 142 K/mm3 (142-424); Red Cell Distribution Width 13.9 % (11.5-17.5); White Blood Count 4.2 K/mm3 (4.8-10.8)
[2019-06-14 04:48] LABS: Alanine Aminotransferase 45 U/L (12-78); Albumin Level 2.9 gm/dL (3.4-5.0); Alkaline Phosphatase 193 U/L (46-116); Amylase 25 U/L (25-115); Anion Gap 21.1 mEq/L (5-15); Aspartate Amino Transferase 41 U/L (15-37); Bilirubin,Direct 1.2 mg/dL (0.0-0.2); Bilirubin,Indirect 0.7 mg/dL (0.0-0.9); Bilirubin,Total 1.9 mg/dL (0.2-1.0); Blood Urea Nitrogen 52 mg/dL (7-18); Carbon Dioxide 24 mmol/L (21.0-32.0); Chloride 96 mmol/L (98-107); Glucose 365 mg/dL (74-106); Sodium 138 mmol/L (136-145); Total Protein,Serum 8.5 gm/dL (6.4-8.2)
[2019-06-14 04:50] LABS: Hypochromasia 1+; Lymphocytes % 7 % (10-50); Macrocytosis 1+; Monocytes % 1 % (2-9); Neutrophils % 76 % (42-76); Rouleaux 2+; Total Cells Counted 100; Toxic Granulation 1+
--- NOTE | 2019-06-14 04:51 | Emergency Department Note ---
ED Disposition Clinical Impression: Severe sepsis, Septic shock, Gastroenteritis, GERMÁN (acute kidney injury), Obesity (BMI 30-39.9), Hypokalemia Diabetes mellitus, insulin dependent (IDDM), uncontrolled Qualifiers: Glycemic state: with hyperglycemia Qualified Code(s): E10.65 - Type 1 diabetes mellitus with hyperglycemia Disposition: Admitted As Inpatient Condition on Discharge: Serious Referrals: Larry Bedolla MD [Primary Care Provider] - - Critical Care Critical Care Time: No Attestation: On 06/14/19, the high probability of a clinically significant, sudden or life threatening deterioration of the following system(s) required my full and direct attention, intervention and personal management. The time I documented below is in addition to time spent performing reported procedures but includes the following listed in this critical care notation. Medical Decision Making - Medical Records Medical records reviewed: Yes: I reviewed the patient's medical records. - Billy Inquiry Pt receiving controlled substance: No Vital Signs: 06/14/19 04:08 Temperature 98.4 F Temperature Source Oral Pulse Rate [Right] 131 H Respiratory Rate 20 Blood Pressure [Right Arm] 144/87 H Blood Pressure Mean [Right Arm] 106 Blood Pressure Source [Right Arm] Automatic Cuff Blood Pressure Position [Right Arm] Sitting 02 Sat by Pulse Oximetry 97 Oxygen Delivery Method Room Air - Lab Data Lab results reviewed: Yes: I reviewed the patient's lab results. Lab Results 06/14/19 04:15: WBC 4.2 L, RBC 4.70, Hgb 14.6, Hct 46.6, MCV 99.0, MCH 31.1, MCHC 31.4 L, RDW 13.9, Plt Count 142, MPV 11.1 H, Neut % (Auto) 87.0 H, Lymph % (Auto) 10.8, [place] % (Auto) 1.7, Eos % (Auto) 0.3, Baso % (Auto) 0.3, Neut # (Auto) 3.6, Lymph # (Auto) 0.5 L, [place] # (Auto) 0.1, Eos # (Auto) 0.0, Baso # (Auto) 0.0, Total Counted 100, Neutrophils % (Manual) 76, Band Neutrophils % 16.0 H, Lymphocytes % (Manual) 7 L, Monocytes % (Manual) 1 L, Toxic Granulation 1+, Platelet Estimate Normal, Hypochromasia 1+, Macrocytosis 1+, Rouleaux 2+ 06/14/19 04:15: Sodium 138, Potassium 3.1 L, Chloride 96 L, Carbon Dioxide 24, Anion Gap 21.1 H, BUN 52 H, Creatinine 2.28 H, Estimated Creat Clear 39, Es timated GFR 22 L, Est GFR ( Amer) 27 L, Glucose 365 H, Calcium 9.0, Total Bilirubin 1.9 H, Direct Bilirubin 1.2 H, Indirect Bilirubin 0.7, AST 41 H, ALT 45, Alkaline Phosphatase 193 H, Troponin I < 0.02, Total Protein 8.5 H, Albumin 2.9 L, Amylase 25, Lipase 147 06/14/19 04:15: Lactate 5.9 H Result diagrams: 06/14/19 04:15 06/14/19 04:15 Orders (Tests/Meds): ED MEDICATIONS Generic Name Dose Route Start Last Admin Trade Name Freq PRN Reason Stop Dose Admin Sodium Chloride 1,000 mls @ 999 mls/hr 06/14/19 04:30 06/14/19 04:22 Sod Chlor 0.9% 1000ml Bag IV 06/14/19 05:30 999 mls/hr .Q1H1M NAS Administration Discontinued Medications Generic Name Dose Route Start Last Admin Trade Name Freq PRN Reason Stop Dose Admin Ondansetron HCl 4 mg 06/14/19 04:18 06/14/19 04:22 Zofran 4mg/2ml Vial IV 06/14/19 04:19 4 mg ONCE ONE Administration ORDERS Category Date Time Status Acetone, Serum (Rapid) Stat Lab 06/14/19 05:35 Ordered Urinalysis and Microscopic Stat Lab 06/14/19 04:19 Ordered Blood Culture Stat Micro 06/14/19 04:15 Received - ECG Data Tracing #1 Arrhythmias present: sinus tach Ischemic changes: non-specific ST-T wave changes - Tissue Perfus/Sepsis Re-Eval Sepsis Re-Evaluation Performed: Yes Date Performed: 06/14/19 Time Performed: 06:01 Nausea/Vomiting/Diarrhea HPI - General Chief complaint: Nausea/Vomiting/Diarrhea Stated complaint: chills,diarrhea,vomiting Time Seen by Provider: 06/14/19 04:15 Mode of Arrival: Ambulatory Source of Information: Patient, Medical Record Limitations: No Limitations Description of Symptoms (Recalled from ER Triage Doc. by RN): Pt states she has N/V/D for 2 days - History of Present Illness HPI Narrative: over the last few days has vomiting and nausea and diarrhea - pt is diabetic and has feeling of sob - no chest pain - has been unable to keep meds down complaint: nausea, vomiting, diarrhea Onset (ago): day(s) Associated Abdominal Pain: Yes Associated symptoms: denies other symptoms - Related Data Home Medications Medication Instructions Recorded Confirmed blood sugar diagnostic strips See Dose Instructions .ROUTE 06/24/18 05/27/19 .MEDSUPPLY 50 Days #100 each cyclobenzaprine 10 mg tablet PO TID 30 Days #90 tab 06/24/18 05/27/19 Previous Rx's Medication Instructions Recorded lancets 28 gauge See Dose Instructions .ROUTE 03/27/18 .MEDSUPPLY #100 each ranolazine ER 1,000 mg 1,000 mg PO Q12H #180 tab 09/08/18 tablet,extended release,12 hr aspirin 81 mg tablet,delayed 81 mg PO DAILY #90 tab 10/05/18 release pen needle, diabetic 31 gauge x See Rx Instructions .ROUTE 12/03/1810/10" .COMPLEX #100 unspecified insulin glargine (U-100) 100 15 unit SQ DAILY #15 ml 01/14/19 unit/mL (3 mL) subcutaneous pen bisoprolol fumarate 10 mg tablet 10 mg PO BID #60 tab 01/18/19 isosorbide mononitrate ER 60 mg 90 mg PO DAILY #45 tab 02/26/19 tablet,extended release 24 hr atorvastatin 40 mg tablet 40 mg PO DAILY #90 tab 05/04/19 clopidogrel 75 mg tablet 75 mg PO QDAY #90 tab 05/04/19 gabapentin 600 mg tablet 600 mg PO TID #90 tab 05/26/19 hydrocodone 5 mg-acetaminophen 325 1 tab PO TID PRN #90 tab 05/26/19 mg tablet lisinopril 10 mg tablet 10 mg PO DAILY #30 tab 05/27/19 metformin ER 1,000 mg 1,000 mg PO BID #180 tab 05/28/19 tablet,extended release 24hr aripiprazole 15 mg tablet 15 mg PO QHS #30 tab 05/31/19 fluoxetine 20 mg capsule 60 mg PO DAILY #90 cap 05/31/19 insulin lispro protamine-lispro 50 unit SQ BID #10 ml 11/04/19 100 unit/mL (75-25) subcutaneous susp Allergies Allergy/AdvReac Type Severity Reaction Status Date / Time No Known Allergies Allergy Verified 05/31/19 08:41 [facility] History - Hepatitis A Screen Drug use history?: No High risk sexual behaviors?: No History of sexually transmitted infection?: No Currently employed?: No Childcare worker?: No Do you have indoor plumbing?: Yes Do you have electricity?: Yes Attestation statement:: This patient has been screened for Hepatitis A risk factors. I have reviewed the patient's past medical history: Yes Medical History: Reports:: Anxiety, Coronary Artery Disease, Depression, Diabetes Mellitus Type 2, Hyperlipidemia, Hypertension Denies:: Cancer, Diabetes Mellitus Type 1, Internal Pacemaker, MRSA, Seizures Comment: NEUROPATHY Other Surgeries: Yes: No Previous Surgery, Angiogram, Angioplasty, Cardiac Cath eterization, Cardiac Surgery, Coronary Stent, Dilation and Curettage, Other. No: Pacemaker Amputation: No Fractures: No Comment: back - Social History Smoking Status: Never smoker # Packs/Day (cigarettes): 1 Alcohol Intake: never Alcohol Intake Frequency:: other Substance Use Type: denies use Occupational Status: employed Housing: apartment Household Members: none - Psychiatric History Pschychiatric History:: Reports:: Anxiety, Depression Family Hx:: Hypertension, Diabetes ROS Obtained: Yes All systems reviewed & no additional complaints - Constitutional Constitutional: Denies fever(s) - Eyes Eyes: Denies change in vision - ENT Ears, Nose, Mouth, and Throat: Denies sore throat - Cardiovascular Cardiovascular: Denies chest pain - Respiratory Respiratory: No cough - Gastrointestinal Gastrointestingal: Reports: diarrhea, nausea, vomiting. Denies: abdominal pain - Genitourinary Female Genitourinary: Denies hematuria - Musculoskeletal Musculoskeletal: Denies joint pain, Denies muscle weakness - Integumentary/Breasts Skin/Breast: Denies rash - Neurologic Neurologic: Reports as per HPI, Denies focal weakness, Denies seizure-like activity, Reports weakness Physical Exam - General General appearance: alert, obese - Head Head exam: normocephalic - Eye Eye exam: Present: PERRL, EOMI. Absent: scleral icterus - ENT ENT exam: Present: mucous membranes dry - Neck Neck exam: Absent: trachea midline - Respiratory Respiratory exam: Present: normal lung sounds bilaterally. Absent: respiratory distress - Cardiovascular Cardiovascular exam: Present: regular rate, systolic murmur, +S4 - Abdominal Exam Abdominal exam: Present: soft. Absent: tenderness - Extremities Exam Extremities exam: Present: full ROM. Absent: calf tenderness - Neurological Exam Neurological exam: Present: alert, oriented X3, CN II-XII intact - Psychiatric Psychiatric exam: Present: normal affect - Skin Skin exam: Absent: rash
--- NOTE | 2019-06-14 07:49 | Pharmacy Consult Notes ---
[facility] Pharmacy VTE Monitoring - Patient Demographics Admission date: 06/14/19 Report Date: 06/14/19 Time: 07:49 Allergies/Adverse Reactions: Patient Allergies No Known Allergies Allergy (Verified 05/31/19 08:41) Height: 1.7 m Weight: 90.265 kg Patient Problems: Current Active Problems Severe sepsis (Acute) Septic shock (Acute) Gastroenteritis (Acute) GERMÁN (acute kidney injury) (Acute) Hypokalemia (Acute) Obesity (BMI 30-39.9) (Acute) Diabetes mellitus, insulin dependent (IDDM), uncontrolled (Acute) - VTE Risk Labs: VTE Related Lab Results Hgb 14.6 g/dL (12.2-16.2) 06/14/19 04:15 Hct 46.6 % (37.0-47.0) 06/14/19 04:15 Plt Count 142 K/mm3 (142-424) 06/14/19 04:15 BUN 52 mg/dL (7-18) H 06/14/19 04:15 Creatinine 2.28 mg/dL (0.55-1.02) H 06/14/19 04:15 Estimated Creat Clear 39 mL/min (50-200) 06/14/19 04:15 - Prophylaxis VTE Prophylaxis Ordered?: Yes Types of VTE Prophylaxis: TEDS Knee High Location of Applied Device: Bilateral Lower Extremeties - VTE Diagnosis Confirmed Treatment or plan recommended: Continue Current Treatment
--- NOTE | 2019-06-14 14:15 | History & Physical Report ---
*Admission Date: 06/14/19 *Chief complaint: vomiting *History of present illness: this wf presented to the ed with hx of vomiting and diarrhea over the last few days -tomasz the last few days has vomiting and nausea and diarrhea - pt is diabetic and has feeling of sob - no chest pain - has been unable to keep meds down - she was found to have septic shock and germán - pt was admitted with ivf and monitor bp [facility] History I have reviewed the patient's past medical history: Yes Medical History: Reports:: Anxiety, Coronary Artery Disease, Depression, Diabetes Mellitus Type 2, Hyperlipidemia, Hypertension, Myocardial Infarction Denies:: Cancer, Diabetes Mellitus Type 1, Internal Pacemaker, MRSA, Seizures *Have you ever received a pneumonia vaccine?: No *Have you received a flu vaccine this season?: No Laterality Cases: Bilateral: Other Other Surgeries: Yes: No Previous Surgery, Angiogram, Angioplasty, Cardiac Catheterization, Cardiac Surgery, Coronary Stent, Dilation and Curettage, Other. No: Pacemaker Amputation: No Fractures: No - *Social History Educational Level: Completed High School Smoking Status: Never smoker # Packs/Day (cigarettes): 1 Alcohol Intake: never Alcohol Intake Frequency:: other Substance Use Type: denies use *Occupational Status:: employed Housing: apartment Household Members: none *Travel in the last 8 weeks: None - Psychiatric History Pschychiatric History:: Reports:: Anxiety, Depression Family Hx:: Cancer, Diabetes, Hypertension Review of Systems - Review of Systems Review of systems:: pertinent systems reviewed and negative unless documented below - Constitutional Reports weakness, Denies fever(s) - Eyes Denies change in vision - ENT Denies sore throat - *Cardiovascular Denies chest pain at rest - *Respiratory Denies cough - *Gastrointestinal Reports loose stools, Reports vomiting - *Genitourinary Denies blood in urine - *Musculoskeletal Denies joint pain - Integumentary/Breasts Denies rash - *Neurologic Reports weakness, Denies localized weakness, Denies seizure-like activity - Psychiatric Denies anxiety Meds Home Medications Medication Instructions Recorded Confirmed Type cyclobenzaprine 10 mg tablet 10 mg PO TIDP PRN 30 Days #90 tab 06/24/18 06/14/19 History hydrocodone 5 mg-acetaminophen 325 1 tab PO TID PRN #90 tab 05/26/19 06/14/19 Rx mg tablet insulin lispro protamine-lispro 50 unit SQ BID #10 ml 05/31/19 06/14/19 Rx 100 unit/mL (75-25) subcutaneous susp ARIPiprazole [Aripiprazole 15mg 15 mg PO HS 06/14/19 06/14/19 History Tablet] Aspirin [Low Dose Aspirin EC] 81 mg PO DAILY 06/14/19 06/14/19 History Atorvastatin Calcium [Lipitor 40mg 40 mg PO DAILY 06/14/19 06/14/19 History Tablet] Bisoprolol Fumarate [Bisoprolol 10 mg PO BID 06/14/19 06/14/19 History 10mg Tablet] Clopidogrel Bisulfate [Plavix 75mg 75 mg PO DAILY 06/14/19 06/14/19 History Tab] Fluoxetine HCl [Prozac] 60 mg PO DAILY 06/14/19 06/14/19 History Gabapentin [Neurontin 600mg 600 mg PO TID 06/14/19 06/14/19 History tablet] Insulin Glargine,Hum.rec.anlog 15 unit SQ DAILY 06/14/19 06/14/19 History [Basaglar KwikPen U-100 Insulin] Isosorbide Mononitrate [Imdur 60mg 90 mg PO DAILY 06/14/19 06/14/19 History ER tablet] Lisinopril [Lisinopril 10mg Tab] 10 mg PO DAILY 06/14/19 06/14/19 History Metformin HCl [Metformin ER 1,000 mg PO BID 06/14/19 06/14/19 History Osmotic] Ranolazine [Ranexa] 1,000 mg PO BID 06/14/19 06/14/19 History Allergies Allergy/AdvReac Type Severity Reaction Status Date / Time No Known Allergies Allergy Verified 05/31/19 08:41 Exam Vital signs and Labs for Last 24 Hours: Temp Pulse Resp BP Pulse Ox 98.2 F 107 H 18 164/81 H 95 06/14/19 12:00 06/14/19 12:00 06/14/19 12:00 06/14/19 12:00 06/14/19 12:00 Laboratory Results - last 24 hr 06/14/19 04:05: Acetone Level None detected 06/14/19 04:15: WBC 4.2 L, RBC 4.70, Hgb 14.6, Hct 46.6, MCV 99.0, MCH 31.1, MCHC 31.4 L, RDW 13.9, Plt Count 142, MPV 11.1 H, Neut % (Auto) 87.0 H, Lymph % (Auto) 10.8, [place] % (Auto) 1.7, Eos % (Auto) 0.3, Baso % (Auto) 0.3, Neut # (Auto) 3.6, Lymph # (Auto) 0.5 L, [place] # (Auto) 0.1, Eos # (Auto) 0.0, Baso # (Auto) 0.0, Total Counted 100, Neutrophils % (Manual) 76, Band Neutrophils % 16.0 H, Lymphocytes % (Manual) 7 L, Monocytes % (Manual) 1 L, Toxic Granulation 1+, Platelet Estimate Normal, Hypochromasia 1+, Macrocytosis 1+, Rouleaux 2+ 06/14/19 04:15: Sodium 138, Potassium 3.1 L, Chloride 96 L, Carbon Dioxide 24, Anion Gap 21.1 H, BUN 52 H, Creatinine 2.28 H, Estimated Creat Clear 39, Estimated GFR 22 L, Est GFR ( Amer) 27 L, Glucose 365 H, Calcium 9.0, Total Bilirubin 1.9 H, Direct Bilirubin 1.2 H, Indirect Bilirubin 0.7, AST 41 H, ALT 45, Alkaline Phosphatase 193 H, Troponin I < 0.02, Total Protein 8.5 H, Albumin 2.9 L, Amylase 25, Lipase 147 06/14/19 04:15: Lactate 5.9 H 06/14/19 08:42: Stl Aeromonas (PCR) Not detected, Stl C. cayetanensis PCR Not detected, Stool Rotavirus (PCR) Not detected, Stl Adenov F 40/41 PCR Not detected, Stool Astrovirus (PCR) Not detected, Stool Campylobacter PCR Not detected, Stl C.difficile Tox PCR Not detected, Stool Cryptosporidium PCR Not detected, Stl E.coli Shiga Tox PCR Not detected, Stool E coli O157 PCR Not detected, Stl Enterotoxigenic E PCR Not detected, Stool EPEC (PCR) Not detected, Stool EAEC (PCR) Not detected, Stl E. histolytica PCR Not detected, Stool Giardia Lamblia PCR Not detected, Stool Salmonella PCR Not detected, Stool Sapovirus (PCR) Not detected, Stl P. shigelloides PCR Not detected, Stl Shigella/EIEC PCR Not detected, St Y.enterocolitica PCR Not detected, Stool Vibrio (PCR) Not detected, Stl Vibrio cholerae PCR Not detected, Stl Norovirus GI/GII PCR Not detected 06/14/19 08:55: Lactate 3.0 H 06/14/19 11:18: POC Glucose 320 H* 06/14/19 11:25: Lactate 1.4 I & O for Last 24 hours: Intake & Output 06/12/19 06/13/19 06/14/19 06/15/19 11:59 11:59 11:59 11:59 Intake Total 2940 / 2940 120 / 120 Balance 2940 / 2940 120 / 120 Weight 199 lb 3 oz 199 lb 3.002 oz - Constitutional no acute distress, obese - *Routine HEENT Exam Head: Present: normocephalic Eye: Present: EOMI, PERRL ENT: Present: mucous membranes dry - *Routine Neck Exam Present: supple - *Routine Respiratory Exam Present: decreased breath sounds - *Routine Cardiovascular Exam Present: RRR, murmur - *Routine Abdominal Exam Present: soft - *Routine Extremities Exam Absent: calf tenderness - *Routine Skin Exam Present: intact - *Routine Neurological Exam Present: alert, CN II-XII intact - Routine Psychiatric Exam Present: normal affect Assessment and Plan (1) Severe sepsis Current visit: Yes Status: Acute Category: Medical Code(s): A41.9 - Sepsis, unspecified organism; R65.20 - Severe sepsis without septic shock (2) Septic shock Current visit: Yes Status: Acute Category: Medical Code(s): A41.9 - Sepsis, unspecified organism; R65.21 - Severe sepsis with septic shock (3) Gastroenteritis Current visit: Yes Status: Acute Category: Medical Code(s): K52.9 - Noninfective gastroenteritis and colitis, unspecified (4) GERMÁN (acute kidney injury) Current visit: Yes Status: Acute Category: Medical Code(s): N17.9 - Acute kidney failure, unspecified (5) Obesity (BMI 30.0-34.9) Current visit: Yes Status: Acute Category: Medical Code(s): E66.9 - Obesity, unspecified
[2019-06-14 17:28] LABS: Microscopic, Urine URINE MICROSCOPIC (MICROSCOPIC)
[2019-06-14 17:51] LABS: Appearance,Urine CLEAR (Clear); Bilirubin,Urine Negative (Negative); Blood, Urine 3+ (Negative); Color,Urine YELLOW (Yellow); Glucose,Urine (UA) 2+ (Negative); Ketones,Urine Negative (Negative); Leukocyte Esterase,Urine 2+ (Negative); Protein,Urine 1+ (Negative)
[2019-06-14 18:05] LABS: Bacteria,Urine 3+ /lpf; Mucus,Urine 2+ /lpf; WBC,Urine TNTC #/hpf (0-3)
--- NOTE | 2019-06-14 18:31 | Electrocardiograph Report ---
APPROVED REPORT Exam: Resting ECG HR:124 bpm ECG Measurements Heart Rate 124 AXES AL 128 P 66 QRSd 78 QRS 19 QT 322 T-26 QTc 462 <Conclusion> Sinus tachycardia Nonspecific ST-T wave abnormalities Abnormal ECG Electronically signed by : Theron Rucker, 06/14/2019 18:30:49
[2019-06-15 06:21] LABS: Basophils % 0.1 % (0.1-2.0); Eosinophils % 0.2 % (0.1-12.0); Hematocrit 37.8 % (37.0-47.0); Hemoglobin 12.4 g/dL (12.2-16.2); Lymphocytes # 0.9 K/mm3 (0.7-4.5); Lymphocytes % 6.9 % (10-50); Mean Corpuscular HGB Conc 32.9 g/dL (31.8-35.4); Mean Corpuscular Volume 96.2 fl (81-99); Mean Platelet Volume 11.6 fl (7.4-10.4); Monocytes # 0.7 K/mm3 (0.1-1.0); Monocytes % 5.7 % (1.7-9.3); Neutrophils # 10.7 K/mm3 (1.8-7.8); Neutrophils % 87.1 % (37.0-80.0); Platelet Count 105 K/mm3 (142-424); Red Blood Count 3.92 M/mm3 (4.20-5.40); White Blood Count 12.3 K/mm3 (4.8-10.8)
[2019-06-15 07:30] LABS: Anion Gap 10.2 mEq/L (5-15); Calcium 8.3 mg/dL (8.5-10.1)
[2019-06-15 08:37] LABS: Lymphocytes % 7 % (10-50); Monocytes % 3 % (2-9); Neutrophils % 90 % (42-76); RBC Morphology NORMAL; Total Cells Counted 100
--- NOTE | 2019-06-15 09:14 | Progress Note ---
Internal Medicine - PN: Subj *Date: 06/15/19 *Time: 09:12 Interval history: Patient laying in bed states she feels rough, states she has been sick since Friday Exam Vital signs and Labs for Last 24 Hours: Temp Pulse Resp BP Pulse Ox 98.6 F 107 H 18 179/98 H 96 06/15/19 07:54 06/15/19 07:54 06/15/19 07:54 06/15/19 07:54 06/15/19 07:54 Laboratory Results - last 24 hr 06/14/19 08:42: Stl Aeromonas (PCR) Not detected, Stl C. cayetanensis PCR Not detected, Stool Rotavirus (PCR) Not detected, Stl Adenov F 40/41 PCR Not detected, Stool Astrovirus (PCR) Not detected, Stool Campylobacter PCR Not detected, Stl C.difficile Tox PCR Not detected, Stool Cryptosporidium PCR Not detected, Stl E.coli Shiga Tox PCR Not detected, Stool E coli O157 PCR Not detected, Stl Enterotoxigenic E PCR Not detected, Stool EPEC (PCR) Not detected, Stool EAEC (PCR) Not detected, Stl E. histolytica PCR Not detected, Stool Giardia Lamblia PCR Not detected, Stool Salmonella PCR Not detected, Stool Sapovirus (PCR) Not detected, Stl P. shigelloides PCR Not detected, Stl Shigella/EIEC PCR Not detected, St Y.enterocolitica PCR Not detected, Stool Vibrio (PCR) Not detected, Stl Vibrio cholerae PCR Not detected, Stl Norovirus GI/GII PCR Not detected 06/14/19 08:55: Lactate 3.0 H 06/14/19 11:18: POC Glucose 320 H* 06/14/19 11:25: Lactate 1.4 06/14/19 16:43: POC Glucose 287 H 06/14/19 17:18: Urine Color Yellow, Urine Appearance Clear, Urine pH 6.0, Ur Specific [place] 1.010, Urine Protein 1+, Urine Glucose (UA) 2+, Urine Ketones Negative, Urine Blood 3+, Urine Nitrate Negative, Urine Bilirubin Negative, Urine Urobilinogen 2.0, Ur Leukocyte Esterase 2+ A, Urine RBC 5-10, Urine WBC Tntc, Ur Squamous Epith Cells 5-10, Urine Bacteria 3+, Urine Mucus 2+ 06/14/19 21:54: POC Glucose 223 H 06/15/19 05:54: WBC 12.3 H D, RBC 3.92 L, Hgb 12.4, Hct 37.8, MCV 96.2, MCH 31.7 H, MCHC 32.9, RDW 14.0, Plt Count 105 L D, MPV 11.6 H, Neut % (Auto) 87.1 H, Lymph % (Auto) 6.9 L, [place] % (Auto) 5.7, Eos % (Auto) 0.2, Baso % (Auto) 0.1, Neut # (Auto) 10.7 H, Lymph # (Auto) 0.9, [place] # (Auto) 0.7, Eos # (Auto) 0.0, Baso # (Auto) 0.0, Total Counted 100, Neutrophils % (Manual) 90 H, Lymphocytes % (Manual) 7 L, Monocytes % (Manual) 3, Platelet Estimate Slight decrease, RBC Morphology Normal 06/15/19 05:54: Sodium 142, Potassium 3.2 L, Chloride 109 H, Carbon Dioxide 26, Anion Gap 10.2, BUN 33 H D, Creatinine 1.23 H D, Estimated Creat Clear 71, Estimated GFR 45 L, Est GFR ( Amer) 54 L D, Glucose 197 H, Calcium 8.3 L, Magnesium 1.9 06/15/19 06:09: POC Glucose 175 H I & O for Last 24 hours: Intake & Output 06/12/19 06/13/19 06/14/19 06/15/19 11:59 11:59 11:59 11:59 Intake Total 2940 / 2940 3561 / 3561 Balance 2940 / 2940 3561 / 3561 Weight 199 lb 3 oz 197 lb 8 oz Microbiology Reports for the Last 24 Hours: Microbiology 06/14/19 04:15 Blood Blood Culture - Preliminary 06/14/19 04:15 Blood Blood Culture - Preliminary - Constitutional no acute distress, obese - *Routine HEENT Exam Head: Present: normocephalic Eye: Present: PERRL ENT: Present: mucous membranes moist - *Routine Neck Exam Present: supple. Absent: lymphadenopathy - *Routine Respiratory Exam Present: CTA bilaterally - *Routine Cardiovascular Exam Present: RRR - *Routine Abdominal Exam Present: soft, normoactive bowel sounds, obese. Absent: tenderness - *Routine Extremities Exam Present: full ROM, pulses intact, normal capillary refill. Absent: cyanosis, clubbing, edema - *Routine Skin Exam Present: intact, warm. Absent: rash - *Routine Neurological Exam Present: alert, oriented X3 - Routine Psychiatric Exam Present: normal affect Assessment and Plan (1) Severe sepsis Current visit: Yes Status: Acute Category: Medical Code(s): A41.9 - Sepsis, unspecified organism; R65.20 - Severe sepsis without septic shock (2) Septic shock Current visit: Yes Status: Acute Category: Medical Code(s): A41.9 - Sepsis, unspecified organism; R65.21 - Severe sepsis with septic shock (3) Gastroenteritis Current visit: Yes Status: Acute Category: Medical Code(s): K52.9 - Noninfective gastroenteritis and colitis, unspecified (4) GERMÁN (acute kidney injury) Current visit: Yes Status: Acute Category: Medical Code(s): N17.9 - Acute kidney failure, unspecified (5) Obesity (BMI 30.0-34.9) Current visit: Yes Status: Acute Category: Medical Code(s): E66.9 - Obesity, unspecified - Assessment and plan all Dx Assessment and Plan for all problems:: Rounded with Dr. Bedolla all orders per [place] wait final cx results
[2019-06-16 06:13] LABS: Basophils % 0.3 % (0.1-2.0); Eosinophils # 0.1 K/mm3 (0.0-0.4); Eosinophils % 1.1 % (0.1-12.0); Hematocrit 37.3 % (37.0-47.0); Lymphocytes # 1.1 K/mm3 (0.7-4.5); Mean Corpuscular HGB Conc 32.3 g/dL (31.8-35.4); Mean Corpuscular Volume 95.9 fl (81-99); Mean Platelet Volume 10.7 fl (7.4-10.4); Monocytes # 0.7 K/mm3 (0.1-1.0); Monocytes % 5.9 % (1.7-9.3); Neutrophils % 83.7 % (37.0-80.0); Platelet Count 114 K/mm3 (142-424); Red Blood Count 3.89 M/mm3 (4.20-5.40); Red Cell Distribution Width 14.2 % (11.5-17.5); White Blood Count 11.9 K/mm3 (4.8-10.8)
[2019-06-16 06:17] LABS: Anion Gap 9.4 mEq/L (5-15); Calcium 8.3 mg/dL (8.5-10.1)
--- NOTE | 2019-06-16 18:10 | Progress Note ---
Internal Medicine - PN: Subj *Date: 06/16/19 *Time: 08:00 Interval history: doing better but still with gi sx Exam Vital signs and Labs for Last 24 Hours: Temp Pulse Resp BP Pulse Ox 97.8 F 70 19 106/69 L 92 L 06/16/19 16:00 06/16/19 16:00 06/16/19 16:00 06/16/19 16:00 06/16/19 16:00 Laboratory Results - last 24 hr 06/15/19 20:25: POC Glucose 226 H 06/16/19 06:02: WBC 11.9 H, RBC 3.89 L, Hgb 12.0 L, Hct 37.3, MCV 95.9, MCH 31.0, MCHC 32.3, RDW 14.2, Plt Count 114 L, MPV 10.7 H, Neut % (Auto) 83.7 H, Lymph % (Auto) 9.0 L, [place] % (Auto) 5.9, Eos % (Auto) 1.1, Baso % (Auto) 0.3, Neut # (Auto) 10.0 H, Lymph # (Auto) 1.1, [place] # (Auto) 0.7, Eos # (Auto) 0.1, Baso # (Auto) 0.0 06/16/19 06:02: Sodium 144, Potassium 3.4 L, Chloride 111 H, Carbon Dioxide 27, Anion Gap 9.4, BUN 28 H, Creatinine 1.24 H, Estimated Creat Clear 71, Estimated GFR 45 L, Est GFR ( Amer) 54 L, Glucose 259 H, Calcium 8.3 L 06/16/19 06:26: POC Glucose 223 H 06/16/19 11:29: POC Glucose 208 H 06/16/19 17:25: POC Glucose 152 H I & O for Last 24 hours: Intake & Output 06/14/19 06/15/19 06/16/19 06/17/19 11:59 11:59 11:59 11:59 Intake Total 2940 / 2940 3561 / 3561 2972 / 2972 1715 / 1715 Output Total 200 / 200 650 / 650 Balance 2940 / 2940 3561 / 3561 2772 / 2772 1065 / 1065 Weight 199 lb 3 oz 197 lb 8 oz 198 lb 5 oz Microbiology Reports for the Last 24 Hours: Microbiology 06/14/19 17:18 Urine,Clean Catch Urine Culture - Final NO GROWTH AFTER 48 HOURS 06/14/19 04:15 Blood Blood Culture - Preliminary Escherichia coli 06/14/19 04:15 Blood Blood Culture - Final Escherichia coli - Constitutional no acute distress - *Routine HEENT Exam Head: Present: normocephalic Eye: Present: EOMI, PERRL ENT: Present: mucous membranes dry - *Routine Neck Exam Present: supple - *Routine Respiratory Exam Present: CTA bilaterally - *Routine Cardiovascular Exam Present: RRR - *Routine Abdominal Exam Present: soft - *Routine Extremities Exam Present: full ROM - *Routine Skin Exam Present: intact - *Routine Neurological Exam Present: alert, oriented X3, CN II-XII intact - Routine Psychiatric Exam Present: normal affect Assessment and Plan (1) Severe sepsis Current visit: Yes Status: Acute Category: Medical Code(s): A41.9 - Sepsis, unspecified organism; R65.20 - Severe sepsis without septic shock (2) Septic shock Current visit: Yes Status: Acute Category: Medical Code(s): A41.9 - Sepsis, unspecified organism; R65.21 - Severe sepsis with septic shock (3) Gastroenteritis Current visit: Yes Status: Acute Category: Medical Code(s): K52.9 - Noninfective gastroenteritis and colitis, unspecified (4) GERMÁN (acute kidney injury) Current visit: Yes Status: Acute Category: Medical Code(s): N17.9 - Acute kidney failure, unspecified (5) Obesity (BMI 30.0-34.9) Current visit: Yes Status: Acute Category: Medical Code(s): E66.9 - Obesity, unspecified (6) E coli bacteremia Current visit: Yes Status: Acute Category: Medical Code(s): R78.81 - Bacteremia
--- NOTE | 2019-06-17 08:59 | Discharge Summary ---
General - General Admission date:: 06/14/19 Discharge date: 06/17/19 HPI HPI: 59-year-old female patient sitting up in bed resting quietly, denies any nausea vomiting or diarrhea in the past 24 hours. She will be discharged today, this was discussed with patient she is in agreement. 59-year-old female patient reports to the emergency department with 2 to 3-day history of nausea, vomiting, and diarrhea. Patient is a diabetic and has complaints of shortness of breath, denies chest pain. She has been unable to keep her medications down. She was found to have septic shock and GERMÁN, she was admitted to the floor for IV fluids and blood pressure monitoring blood cultures and UA sent Hospital Course Hospital Course: his wf presented to the ed with hx of vomiting and diarrhea over the last few days -tomasz the last few days has vomiting and nausea and diarrhea - pt is diabetic and has feeling of sob - no chest pain - has been unable to keep meds down - she was found to have septic shock and germán - pt was admitted with ivf and monitor bp Patient has received antibiotics and Rocephin IV during her stay. A GERMÁN has resolved with fluids. Final UA is no organisms, final blood culture is E. coli x2. Patient will be discharged home on 1 g of Rocephin IM daily at hospital, location and procedure explained to patient she verbalizes understanding is agreeable to this. She will follow-up in the office in 2 weeks. May return to work 06/21/2019, note given. 06/14/2019 CXR: IMPRESSION: No acute finding. Please see above for detail Dictated by: Davin, Objective Vital signs: Temp Pulse Resp BP Pulse Ox 97.9 F 75 17 136/87 95 06/17/19 08:00 06/17/19 08:00 06/17/19 08:00 06/17/19 08:00 06/17/19 08:00 no acute distress - *Routine HEENT Exam Head: Present: normocephalic, atraumatic Eye: Present: EOMI, PERRL, normal accommodation ENT: Present: mucous membranes moist - *Routine Neck Exam Present: full ROM, trachea midline. Absent: JVD, tracheal deviation - *Routine Cardiovascular Exam Present: RRR - *Routine Abdominal Exam Present: soft, normoactive bowel sounds. Absent: tenderness, firm - *Routine Extremities Exam Present: edema, full ROM. Absent: calf tenderness - Routine Back/Spine/Pelvis Exam Back/Spine: Present: full ROM. Absent: CVA tenderness - *Routine Skin Exam Present: intact. Absent: cyanosis, lesions - *Routine Neurological Exam Present: alert, oriented X3, CN II-XII intact. Absent: altered mental status Results Labs on day of discharge: Labs from last 24 hours 06/17/19 06/16/19 06/16/19 05:57 20:41 17:25 POC Glucose 153 H 198 H 152 H 06/16/19 11:29 POC Glucose 208 H Preliminary micro results at discharge 06/14/19 04:15 Blood Culture - Preliminary Blood Escherichia coli - Additional Comments Rounded with Dr. Bedolla, all orders per Dr. Bedolla 1. We will discharge home today 2. Rocephin 1 g IM daily x7 days 3. Follow-up in office in 2 weeks DS: Diagnosis - Discharge Diagnosis (1) Severe sepsis Status: Acute (2) Septic shock Status: Acute (3) Gastroenteritis Status: Acute (4) GERMÁN (acute kidney injury) Status: Acute (5) Obesity (BMI 30.0-34.9) Status: Acute (6) E coli bacteremia Status: Acute Discharge Plan - Patient Discharge Instructions ACTIVITY: Continue current activity DIET: continue same diet Patient Instructions: Sepsis, Viral Gastroenteritis, DI for Viral Gastroenteritis -- Adult, DI for Hypokalemia, DI for Bacterial Gastroenteritis -- Adult, DI for Sepsis -- Adult, Gastroenteritis Diet, Hypokalemia - Follow up Plan Disposition: Home, Self-Fpc Medications: Home Medications Medication Instructions Recorded Confirmed Type cyclobenzaprine 10 mg tablet 10 mg PO TIDP PRN 30 Days #90 tab 06/24/18 06/14/19 History hydrocodone 5 mg-acetaminophen 325 1 tab PO TID PRN #90 tab 05/26/19 06/14/19 Rx mg tablet insulin lispro protamine-lispro 50 unit SQ BID #10 ml 05/31/19 06/14/19 Rx 100 unit/mL (75-25) subcutaneous susp ARIPiprazole [Aripiprazole 15mg 15 mg PO HS 06/14/19 06/14/19 History Tablet] Aspirin [Low Dose Aspirin EC] 81 mg PO DAILY 06/14/19 06/14/19 History Atorvastatin Calcium [Lipitor 40mg 40 mg PO DAILY 06/14/19 06/14/19 History Tablet] Bisoprolol Fumarate [Bisoprolol 10 mg PO BID 06/14/19 06/14/19 History 10mg Tablet] Clopidogrel Bisulfate [Plavix 75mg 75 mg PO DAILY 06/14/19 06/14/19 History Tab] Fluoxetine HCl [Prozac] 60 mg PO DAILY 06/14/19 06/14/19 History Gabapentin [Neurontin 600mg 600 mg PO TID 06/14/19 06/14/19 History tablet] Insulin Glargine,Hum.rec.anlog 15 unit SQ DAILY 06/14/19 06/14/19 History [Basaglar KwikPen U-100 Insulin] Isosorbide Mononitrate [Imdur 60mg 90 mg PO DAILY 06/14/19 06/14/19 History ER tablet] Lisinopril [Lisinopril 10mg Tab] 10 mg PO DAILY 06/14/19 06/14/19 History Metformin HCl [Metformin ER 1,000 mg PO BID 06/14/19 06/14/19 History Osmotic] Ranolazine [Ranexa] 1,000 mg PO BID 06/14/19 06/14/19 History Ceftriaxone Sodium [Ceftriaxone] 1 gm IM Q24H #7 vial 06/17/19 Rx Prescriptions/Medication Reconciliation: New Ceftriaxone Sodium [Ceftriaxone] 1 gm IM Q24H #7 vial Continued cyclobenzaprine 10 mg tablet 10 mg PO TIDP PRN 30 Days #90 tab PRN Reason: Muscle Spasm hydrocodone 5 mg-acetaminophen 325 mg tablet 1 tab PO TID PRN #90 tab PRN Reason: pain insulin lispro protamine-lispro 100 unit/mL (75-25) subcutaneous susp 50 unit SQ BID #10 ml Lisinopril [Lisinopril 10mg Tab] 10 mg PO DAILY Isosorbide Mononitrate [Imdur 60mg ER tablet] 90 mg PO DAILY Insulin Glargine,Hum.rec.anlog [Basaglar KwikPen U-100 Insulin] 15 unit SQ DAILY Gabapentin [Neurontin 600mg tablet] 600 mg PO TID Fluoxetine HCl [Prozac] 60 mg PO DAILY Clopidogrel Bisulfate [Plavix 75mg Tab] 75 mg PO DAILY Bisoprolol Fumarate [Bisoprolol 10mg Tablet] 10 mg PO BID Atorvastatin Calcium [Lipitor 40mg Tablet] 40 mg PO DAILY Aspirin [Low Dose Aspirin EC] 81 mg PO DAILY ARIPiprazole [Aripiprazole 15mg Tablet] 15 mg PO HS Ranolazine [Ranexa] 1,000 mg PO BID Metformin HCl [Metformin ER Osmotic] 1,000 mg PO BID - Problem Reconciliation Problems Reviewed?: Yes
== END 2019-06-17 10:32 | disposition home or self-care (01) | DRG 391 ==
LOC: 2ND 03:55 → ER 03:55 → OBSVTOIN 07:00 → 2ND 07:03
PROVIDERS: ADMIT Emergency Medicine; ATTEND Emergency Medicine
CPT/HCPCS: 36415; 71020; 71046; 80048; 80076; 81001; 82009; 82150; 82962; 83605; 83690; 83735; 84484; 85007; 85025; 87040; 87077; 87086; 87186; 87506; 93005; 96365; 96366; 96367; 96375; 99284; J1335; J2405

== ENCOUNTER 2019-06-18 08:54 | Outpatient (CLI) | payer MEDICAID, SELFPAY ==
[2019-06-18 09:10] VITALS: BP 148/77; PULSE 76; RESP 18; TEMP 36.6
== END 2019-06-18 09:25 | disposition home or self-care (01) ==
LOC: INF 08:55
PROVIDERS: Visit Provider Emergency Medicine
DX: R78.81 Bacteremia (principal); B96.20 Unspecified Escherichia coli [E. coli] as the cause of diseases classified elsewhere
CPT/HCPCS: 96372

== ENCOUNTER 2019-06-19 09:42 | Outpatient (CLI) | payer MEDICAID, SELFPAY ==
[2019-06-19 10:00] VITALS: BP 187/95; PULSE 83; RESP 16; O2SAT 99
[2019-06-19 10:12] VITALS: BP 186/91; PULSE 84; RESP 18; O2SAT 99
--- NOTE | 2019-06-19 10:13 | PC.NURSE ---
Pt bp elevated; instructed patient that she should go down to [facility] or ER to have it checked out; Pt verbalized understanding.
== END 2019-06-19 10:14 | disposition home or self-care (01) ==
LOC: INF 09:43
PROVIDERS: PCP Emergency Medicine; Visit Provider Emergency Medicine
DX: A41.9 Sepsis, unspecified organism (principal); B96.20 Unspecified Escherichia coli [E. coli] as the cause of diseases classified elsewhere; R78.81 Bacteremia
CPT/HCPCS: 96372

== ENCOUNTER 2019-06-20 08:40 | Outpatient (CLI) | payer MEDICAID, SELFPAY ==
[2019-06-20 09:02] VITALS: BP 154/84; PULSE 79; RESP 18; TEMP 36.8; O2SAT 98
[2019-06-20 09:23] VITALS: BP 154/84; PULSE 79; RESP 18; TEMP 36.8; O2SAT 98
== END 2019-06-20 09:25 | disposition home or self-care (01) ==
LOC: INF 08:41
PROVIDERS: PCP Emergency Medicine; Visit Provider Emergency Medicine
DX: A41.9 Sepsis, unspecified organism (principal); B96.20 Unspecified Escherichia coli [E. coli] as the cause of diseases classified elsewhere; R78.81 Bacteremia
CPT/HCPCS: 96372; 96374

== ENCOUNTER 2019-06-21 08:53 | Outpatient (CLI) | payer MEDICAID, SELFPAY ==
[2019-06-21 09:07] VITALS: BP 135/86; PULSE 82; RESP 18
== END 2019-06-21 09:10 | disposition home or self-care (01) ==
LOC: INF 08:53
PROVIDERS: Visit Provider Emergency Medicine
DX: R78.81 Bacteremia (principal); B96.20 Unspecified Escherichia coli [E. coli] as the cause of diseases classified elsewhere
CPT/HCPCS: 96372

== ENCOUNTER 2019-06-22 12:10 | Outpatient (CLI) | payer MEDICAID, SELFPAY ==
[2019-06-22 12:26] VITALS: BP 178/87; PULSE 91; RESP 18
== END 2019-06-22 12:26 | disposition home or self-care (01) ==
LOC: INF 12:10
PROVIDERS: Visit Provider Emergency Medicine
DX: R78.81 Bacteremia (principal); B96.20 Unspecified Escherichia coli [E. coli] as the cause of diseases classified elsewhere
CPT/HCPCS: 96372

== ENCOUNTER 2019-06-23 09:28 | Outpatient (CLI) | payer MEDICAID, SELFPAY ==
[2019-06-23 09:57] VITALS: BP 124/73; PULSE 77; RESP 18
== END 2019-06-23 09:57 | disposition home or self-care (01) ==
LOC: INF 09:28
PROVIDERS: Visit Provider Emergency Medicine
DX: R78.81 Bacteremia (principal); B96.20 Unspecified Escherichia coli [E. coli] as the cause of diseases classified elsewhere
CPT/HCPCS: 96372

== ENCOUNTER 2019-06-24 08:47 | Outpatient (CLI) | payer MEDICAID, SELFPAY ==
[2019-06-24 08:54] VITALS: BMI 31.0
[2019-06-24 08:58] VITALS: BP 151/80; PULSE 75; RESP 16; TEMP 36.6; O2SAT 97
[2019-06-24 09:20] VITALS: BP 145/76; PULSE 76; RESP 17; TEMP 36.6; O2SAT 97
== END 2019-06-24 09:21 | disposition home or self-care (01) ==
LOC: INF 08:47
PROVIDERS: PCP Emergency Medicine; Visit Provider Emergency Medicine
DX: R78.81 Bacteremia (principal); B96.20 Unspecified Escherichia coli [E. coli] as the cause of diseases classified elsewhere
CPT/HCPCS: G0463

== ENCOUNTER → 2019-07-13 13:47 | Outpatient (CLI) | payer MEDICAID, SELFPAY ==
[2019-07-13 16:48] LABS: Amphetamine/Metha Screen,Urine Negative ng/mL (<1000); Barbiturates Screen,Urine Negative ng/mL (<200); Benzodiazepines Screen,Urine Negative ng/mL (<200); Cannabinoid Screen,Urine Negative ng/mL (<50); Cocaine Screen,Urine Negative ng/mL (<300); Methadone Screen,Urine Negative ng/mL (<300); Opiate Screen,Urine Positive ng/mL (<300); Phencyclidine Screen,Urine Negative ng/mL (<25)
== END ==
PROVIDERS: Visit Provider Emergency Medicine
DX: Z79.899 Other long term (current) drug therapy (principal)
CPT/HCPCS: 80305

== ENCOUNTER 2019-08-11 17:15 | Observation (INO) ==
--- NOTE | 2019-08-11 17:44 | Emergency Department Note ---
ED Disposition Clinical Impression: Intractable vomiting, Uncontrolled type 2 diabetes mellitus Disposition: Admitted as Observation Condition on Discharge: Serious Referrals: Orlando Henry APRN [Primary Care Provider] - Time of Disposition: 20:32 - Critical Care Critical Care Time: No Attestation: On , the high probability of a clinically significant, sudden or life threa tening deterioration of the following system(s) required my full and direct attention, intervention and personal management. The time I documented below is in addition to time spent performing reported procedures but includes the following listed in this critical care notation. Medical Decision Making - Medical Records Medical records reviewed: Yes: I reviewed the patient's medical records. - Billy Inquiry Pt receiving controlled substance: No Vital Signs: 08/11/19 17:31 Temperature 98.2 F Temperature Source Oral Pulse Rate [Right Radial] 97 H Respiratory Rate 14 Blood Pressure [Right Arm] 157/99 H Blood Pressure Mean [Right Arm] 118 Blood Pressure Source [Right Arm] Automatic Cuff Blood Pressure Position [Right Arm] Sitting 02 Sat by Pulse Oximetry 98 Oxygen Delivery Method Room Air - Lab Data Lab results reviewed: Yes: I reviewed the patient's lab results. Lab Results 08/11/19 17:25: WBC 6.1, RBC 4.74, Hgb 14.3, Hct 46.8, MCV 98.6, MCH 30.1, MCHC 30.5 L, RDW 14.0, Plt Count 184, MPV 9.5, Neut % (Auto) 68.2, Lymph % (Auto) 25.0, [place] % (Auto) 4.5, Eos % (Auto) 1.9, Baso % (Auto) 0.4, Neut # (Auto) 4.2, Lymph # (Auto) 1.5, [place] # (Auto) 0.3, Eos # (Auto) 0.1, Baso # (Auto) 0.0 08/11/19 17:25: Sodium 135 L, Potassium 4.8, Chloride 101, Carbon Dioxide 27, Anion Gap 11.8, BUN 9 D, Creatinine 1.23 H, Estimated Creat Clear 68, Estimated GFR 45 L, Est GFR ( Amer) 54 L, Glucose 465 H*, Calcium 9.1, Total Bilirubin 0.5, AST 32, ALT 26, Alkaline Phosphatase 134 H, Total Protein 8.7 H, Albumin 3.1 L, Globulin 5.6 H, Albumin/Globulin Ratio 0.6 L 08/11/19 17:25: Troponin I < 0.02 08/11/19 17:25: Hemoglobin A1c 10.3 H 08/11/19 17:25: Acetone Level None detected 08/11/19 17:50: Urine Color Yellow, Urine Appearance Clear, Urine pH 6.0, Ur Specific Hope 1.015, Urine Protein Negative, Urine Glucose (UA) 3+, Urine Ketones Negative, Urine Blood 1+, Urine Nitrate Negative, Urine Bilirubin Negative, Urine Urobilinogen 0.2, Ur Leukocyte Esterase 1+ A, Urine RBC Occasional, Urine WBC 5-10, Ur Squamous Epith Cells Occasional, Urine Bacteria Trace Result diagrams: 08/11/19 17:25 08/11/19 17:25 Orders (Tests/Meds): ED MEDICATIONS Generic Name Dose Route Start Last Admin Trade Name Freq PRN Reason Stop Dose Admin Sodium Chloride 1,000 mls @ 999 mls/hr 08/11/19 18:00 08/11/19 18:02 Sod Chlor 0.9% 1000ml Bag IV 08/11/19 19:00 999 mls/hr .Q1H1M NAS Administration Sodium Chloride 1,000 mls @ 999 mls/hr 08/11/19 19:15 08/11/19 19:09 Sod Chlor 0.9% 1000ml Bag IV 08/11/19 20:15 999 mls/hr .Q1H1M NAS Administration Discontinued Medications Generic Name Dose Route Start Last Admin Trade Name Freq PRN Reason Stop Dose Admin Diatrizoate Meglum/Diatrizoate Sod 30 ml 08/11/19 17:55 08/11/19 18:02 Gastrografin 66%-10% 30ml PO 08/11/19 17:56 30 ml ONCE ONE Administration Hydromorphone HCl 0.5 mg 08/11/19 19:04 08/11/19 18:00 Dilaudid 2mg/Ml Syringe IV 08/11/19 19:05 0.5 mg ONCE ONE Administration Insulin Human Regular 12 unit 08/11/19 18:02 08/11/19 18:07 Humulin R Insulin 100 Units/Ml 10ml Vial SQ 08/11/19 18:03 12 unit ONCE ONE Administration Ioversol 75 ml 08/11/19 19:56 08/11/19 19:57 Rad-Optiray 350 100ml Vial IV 08/11/19 19:57 75 ml ONCE ONE Administration Protocol Ondansetron HCl 4 mg 08/11/19 17:55 08/11/19 18:02 Zofran 4mg/2ml Vial IV 08/11/19 17:56 4 mg ONCE ONE Administration Sodium Chloride 10 ml 08/11/19 19:56 08/11/19 19:56 Rad-Saline Flush 10ml Syringe IV 08/11/19 19:57 10 ml ONCE ONE Administration ORDERS Category Date Time Status CT abdomen pelvis w con Stat Cat Scan 08/11/19 17:54 Taken Lactic Acid Stat Lab 08/11/19 20:30 Ordered Blood Culture Stat Micro 08/11/19 20:29 Ordered Urine Culture Stat Micro 08/11/19 17:50 Received - CT Data CT Scan: Abdomen, Pelvis Time Received: 20:33 Preliminary Findings: Abnormal General Adult HPI - General Chief complaint: Nausea/Vomiting/Diarrhea Stated complaint: vomiting for a wk Time Seen by Provider: 08/11/19 17:40 Mode of Arrival: Ambulatory Source of Information: Patient Limitations: No Limitations Description of Symptoms (Recalled from ER Triage Doc. by RN): PT STATES SHE WAS SENT TO ED FROM [facility]'S OFFICE WITH C/O VOMITING X1 WEEK. PT IS CONCERNED BECAUSE SHE IS DIABETIC - History of Present Illness HPI narrative: 59-year old female history of poorly controlled diabetes mellitus type 2 with 1 week of diffuse abdominal discomfort with nausea and vomiting. Onset (ago): week(s) (1) Location: abdomen Radiation: non-radiation Severity: moderate Quality: aching Consistency: constant Relieving factors: none Exacerbating factors: none Associated symptoms: nausea/vomiting Treatments prior to arrival: none - Related Data Home Medications Medication Instructions Recorded Confirmed cyclobenzaprine 10 mg tablet 10 mg PO TIDP PRN 30 Days #90 tab 06/24/18 08/11/19 ARIPiprazole [Aripiprazole 15mg 15 mg PO HS 06/14/19 08/11/19 Tablet] Aspirin [Low Dose Aspirin EC] 81 mg PO DAILY 06/14/19 08/11/19 Atorvastatin Calcium [Lipitor 40mg 40 mg PO DAILY 06/14/19 08/11/19 Tablet] Clopidogrel Bisulfate [Plavix 75mg 75 mg PO DAILY 06/14/19 08/11/19 Tab] Fluoxetine HCl [Prozac] 60 mg PO DAILY 06/14/19 08/11/19 Insulin Glargine,Hum.rec.anlog 15 unit SQ DAILY 06/14/19 08/11/19 [Basaglar Coripen U-100] Isosorbide Mononitrate [Imdur 60mg 90 mg PO DAILY 06/14/19 08/11/19 ER tablet] Metformin HCl [Metformin ER 1,000 mg PO BID 06/14/19 08/11/19 Osmotic] Ranolazine [Ranexa] 1,000 mg PO BID 06/14/19 08/11/19 bisoproloL fumarate [Bisoprolol 10 mg PO BID 06/14/19 08/11/19 10mg Tablet] Mupirocin [Centany] 1 applic TOPICAL BID 08/11/19 08/11/19 Previous Rx's Medication Instructions Recorded insulin lispro protamine-lispro 50 unit SQ BID #10 ml 05/31/19 100 unit/mL (75-25) subcutaneous susp lisinopril 10 mg tablet 10 mg PO DAILY #90 tab 07/08/19 gabapentin 600 mg tablet 600 mg PO TID #90 tab 07/13/19 hydrocodone 5 mg-acetaminophen 325 1 tab PO TID PRN #90 tab 07/13/19 mg tablet Ondansetron [Zofran 4mg ODT] 4 mg PO Q8HP PRN #20 tab.rapdis 08/02/19 Promethazine HCl [Phenergan 25mg 25 mg PO Q6H PRN #30 tab 08/04/19 tab] Allergies Allergy/AdvReac Type Severity Reaction Status Date / Time No Known Allergies Allergy Verified 08/11/19 16:30 [facility] History - Hepatitis A Screen Drug use history?: No High risk sexual behaviors?: No History of sexually transmitted infection?: No Currently employed?: No Childcare worker?: No Do you have indoor plumbing?: Yes Do you have electricity?: Yes Attestation statement:: This patient has been screened for Hepatitis A risk factors. I have reviewed the patient's past medical history: Yes Medical History: Reports:: Anxiety, Coronary Artery Disease, Depression, Diabetes Mellitus Type 2, Hyperlipidemia, Hypertension, Myocardial Infarction Denies:: Cancer, Diabetes Mellitus Type 1, Internal Pacemaker, MRSA, Seizures Comment: NEUROPATHY Laterality Cases: Bilateral: Other Other Surgeries: Yes: No Previous Surgery, Angiogram, Angioplasty, Cardiac Catheterization, Cardiac Surgery, Coronary Stent, Dilation and Curettage, Other. No: Pacemaker Amputation: No Fractures: No Comment: back - Social History Smoking Status: Never smoker # Packs/Day (cigarettes): 1 Alcohol Intake: never Alcohol Intake Frequency:: other Substance Use Type: denies use Occupational Status: employed Housing: apartment Household Members: none - Psychiatric History Pschychiatric History:: Reports:: Anxiety, Depression Family Hx:: Cancer, Diabetes, Hypertension ROS Obtained: Yes Systems reviewed as appropriate & no additional complaints - Constitutional Constitutional: Reports malaise - Eyes Eyes: Reports system reviewed and no additional complaints, except as docu - ENT Ears, Nose, Mouth, and Throat: Reports system reviewed and no additional complaints, except as docu - Cardiovascular Cardiovascular: Reports system reviewed and no additional complaints, except as docu - Respiratory Respiratory: Yes system reviewed and no additional complaints, except as docu - Gastrointestinal Gastrointestingal: Reports: abdominal pain, nausea, vomiting - Genitourinary Female Genitourinary: Reports system reviewed and no additional complaints, except as docu - Musculoskeletal Musculoskeletal: Reports system reviewed and no additional complaints, except as docu - Integumentary/Breasts Skin/Breast: Reports system reviewed and no additional complaints, except as docu - Neurologic Neurologic: Reports system reviewed and no additional complaints, except as docu - Endocrine Endocrine: Reports system reviewed and no additional complaints, except as docu - Hematologic/Lymphatic Henatologic/Lymphatic: Reports system reviewed and no additional complaints, except as docu - Allergic/Immunologic Allergic/Immunologic: Reports system reviewed and no additional complaints, except as docu Physical Exam - General General appearance: alert, in no apparent distress - Head Head exam: atraumatic, normocephalic, normal inspection - Eye Eye exam: Present: normal appearance, PERRL, EOMI - ENT ENT exam: Present: normal exam, normal oropharynx, mucous membranes moist, normal external ear exam - Neck Neck exam: Present: normal inspection, full ROM, trachea midline. Absent: meningismus, lymphadenopathy - Chest Chest inspection: Present: normal inspection, symmetric chest wall rise. Absent: tenderness - Respiratory Respiratory exam: Present: normal lung sounds bilaterally. Absent: respiratory distress - Cardiovascular Cardiovascular exam: Present: regular rate, normal rhythm. Absent: JVD - Abdominal Exam Abdominal exam: Present: soft, normal bowel sounds. Absent: distention, tenderness, guarding - Extremities Exam Extremities exam: Present: normal inspection, full ROM, normal capillary refill. Absent: calf tenderness - Back Exam Back exam: Present: normal inspection. Absent: tenderness - Neurological Exam Neurological exam: Present: alert, oriented X3, CN II-XII intact, normal gait. Absent: motor sensory deficit - Psychiatric Psychiatric exam: Present: normal affect, normal mood - Skin Skin exam: Present: warm, dry, intact, normal color
[2019-08-11 17:49] LABS: Basophils % 0.4 % (0.1-2.0); Eosinophils # 0.1 K/mm3 (0.0-0.4); Eosinophils % 1.9 % (0.1-12.0); Hematocrit 46.8 % (37.0-47.0); Hemoglobin 14.3 g/dL (12.2-16.2); Lymphocytes # 1.5 K/mm3 (0.7-4.5); Mean Corpuscular HGB Conc 30.5 g/dL (31.8-35.4); Mean Corpuscular Volume 98.6 fl (81-99); Mean Platelet Volume 9.5 fl (7.4-10.4); Monocytes # 0.3 K/mm3 (0.1-1.0); Monocytes % 4.5 % (1.7-9.3); Neutrophils # 4.2 K/mm3 (1.8-7.8); Neutrophils % 68.2 % (37.0-80.0); Platelet Count 184 K/mm3 (142-424); Red Blood Count 4.74 M/mm3 (4.20-5.40); White Blood Count 6.1 K/mm3 (4.8-10.8)
[2019-08-11 17:54] LABS: Albumin Level 3.1 gm/dL (3.4-5.0); Albumin/Globulin Ratio 0.6 (1.1-1.8); Anion Gap 11.8 mEq/L (5-15); Bilirubin,Total 0.5 mg/dL (0.2-1.0); Calcium 9.1 mg/dL (8.5-10.1); Globulin 5.6 gm/dl (1.3-3.2); Total Protein,Serum 8.7 gm/dL (6.4-8.2)
[2019-08-11 17:59] LABS: Microscopic, Urine URINE MICROSCOPIC (MICROSCOPIC)
[2019-08-11 18:08] LABS: Appearance,Urine CLEAR (Clear); Bilirubin,Urine Negative (Negative); Blood, Urine 1+ (Negative); Color,Urine YELLOW (Yellow); Glucose,Urine (UA) 3+ (Negative); Ketones,Urine Negative (Negative); Leukocyte Esterase,Urine 1+ (Negative); Protein,Urine Negative (Negative); Specific Gravity, Urine 1.015 (1.005-1.030); Urobilinogen,Urine 0.2 EU/dl (0.2)
[2019-08-11 18:15] LABS: Bacteria,Urine Trace /lpf; RBC,Urine Occasional #/hpf (0-3); Squamous Epithelial Cell,Urine Occasional #/hpf (0-5)
--- NOTE | 2019-08-12 07:08 | Pharmacy Consult Notes ---
[facility] Pharmacy VTE Monitoring - Patient Demographics Admission date: 08/11/19 Report Date: 08/12/19 Time: 07:08 Allergies/Adverse Reactions: Patient Allergies No Known Allergies Allergy (Verified 08/11/19 16:30) Height: 1.7 m Weight: 85.729 kg Patient Problems: Current Active Problems Intractable vomiting (Acute) Uncontrolled type 2 diabetes mellitus (Acute) - VTE Risk Labs: VTE Related Lab Results Hgb 14.3 g/dL (12.2-16.2) 08/11/19 17:25 Hct 46.8 % (37.0-47.0) 08/11/19 17:25 Plt Count 184 K/mm3 (142-424) 08/11/19 17:25 BUN 9 mg/dL (7-18) D 08/11/19 17:25 Creatinine 1.23 mg/dL (0.55-1.02) H 08/11/19 17:25 Estimated Creat Clear 68 mL/min (50-200) 08/11/19 17:25 Was VTE Risk Assessment Performed: Yes VTE Score: 3 VTE Risk Level: Low Risk Clinical Trial Participant: No - Prophylaxis VTE Prophylaxis Ordered?: Yes Types of VTE Prophylaxis: TEDS Knee High
[2019-08-12 07:33] LABS: Basophils % 0.3 % (0.1-2.0); Eosinophils # 0.1 K/mm3 (0.0-0.4); White Blood Count 4.5 K/mm3 (4.8-10.8)
[2019-08-12 07:39] LABS: Albumin Level 2.6 gm/dL (3.4-5.0); Albumin/Globulin Ratio 0.6 (1.1-1.8); Anion Gap 9.5 mEq/L (5-15); Bilirubin,Total 0.6 mg/dL (0.2-1.0); Calcium 8.6 mg/dL (8.5-10.1); Chol/HDL Ratio 5.1 (1-3.5); Globulin 4.6 gm/dl (1.3-3.2); Phosphorous 3.6 mg/dL (2.4-4.9); Total Protein,Serum 7.2 gm/dL (6.4-8.2)
[2019-08-12 07:41] LABS: Eosinophils % 2.5 % (0.1-12.0); Hematocrit 39.1 % (37.0-47.0); Lymphocytes # 1.4 K/mm3 (0.7-4.5); Mean Corpuscular Volume 94.5 fl (81-99); Mean Platelet Volume 9.4 fl (7.4-10.4); Monocytes # 0.2 K/mm3 (0.1-1.0); Monocytes % 4.8 % (1.7-9.3); Neutrophils # 2.7 K/mm3 (1.8-7.8); Neutrophils % 60.4 % (37.0-80.0); Platelet Count 139 K/mm3 (142-424); Red Blood Count 4.14 M/mm3 (4.20-5.40); Red Cell Distribution Width 13.8 % (11.5-17.5)
[2019-08-12 07:44] LABS: Hemoglobin 12.5 g/dL (12.2-16.2)
--- NOTE | 2019-08-12 10:43 | Consult Report ---
*Admission Date: 08/11/19 *Reason for consult:: Cholecystitis *History of present illness: This is a 59-year-old female seen in consultation from the service of Dr. Bedolla for evaluation regarding gallbladder disease. She presented with increasing nausea/vomiting and right upper quadrant abdominal pain. A CT scan, as well as, an ultrasound revealed no stones and a distended gallbladder. No definitive wal l thickening or pericholecystic fluid noted. The surgical service was consulted for her evaluation and management. No fevers. No jaundice. No hematemesis. Review of Systems - Constitutional Denies chills - Eyes Denies change in vision - ENT Denies change in voice - *Cardiovascular Denies chest pain - *Respiratory Denies cough - *Gastrointestinal Reports abdominal pain, Reports nausea, Reports vomiting - *Genitourinary Denies difficulty urinating - *Musculoskeletal Denies deformity - Integumentary/Breasts Denies changing lesions - *Neurologic Denies abnormal movements - Psychiatric Denies anxiety - Endocrine Denies cold intolerance - Hematologic/Lymphatic Denies easy bruising - Allergic/Immunologic Denies wheezing [facility] History Medical History: Reports:: Anxiety, Coronary Artery Disease, Depression, Diabetes Mellitus Type 2, Hyperlipidemia, Hypertension, Myocardial Infarction Denies:: Cancer, Diabetes Mellitus Type 1, Internal Pacemaker, MRSA, Seizures *Have you ever received a pneumonia vaccine?: No *Have you received a flu vaccine this season?: No Laterality Cases: Bilateral: Other Other Surgeries: Yes: No Previous Surgery, Angiogram, Angioplasty, Cardiac Catheterization, Cardiac Surgery, Coronary Stent, Dilation and Curettage, Other. No: Pacemaker Amputation: No Fractures: No - *Social History Educational Level: Completed High School Smoking Status: Never smoker # Packs/Day (cigarettes): 1 Alcohol Intake: never Alcohol Intake Frequency:: other Substance Use Type: denies use *Occupational Status:: employed Housing: apartment Household Members: none *Travel in the last 8 weeks: None - Psychiatric History Pschychiatric History:: Reports:: Anxiety, Depression Family Hx:: Asthma, Cancer, Coronary Artery Disease, Diabetes, Hyperlipidemia, Hypertension, Thyroid Disorder Meds Home Medications Medication Instructions Recorded Confirmed Type cyclobenzaprine 10 mg tablet 10 mg PO TIDP PRN 30 Days #90 tab 06/24/18 08/11/19 History insulin lispro protamine-lispro 50 unit SQ BID #10 ml 05/31/19 08/11/19 Rx 100 unit/mL (75-25) subcutaneous susp ARIPiprazole [Aripiprazole 15mg 15 mg PO HS 06/14/19 08/11/19 History Tablet] Aspirin [Low Dose Aspirin EC] 81 mg PO HS 06/14/19 08/12/19 History Atorvastatin Calcium [Lipitor 40mg 40 mg PO HS 06/14/19 08/12/19 History Tablet] Clopidogrel Bisulfate [Plavix 75mg 75 mg PO DAILY 06/14/19 08/11/19 History Tab] Fluoxetine HCl [Prozac] 60 mg PO DAILY 06/14/19 08/11/19 History Insulin Glargine,Hum.rec.anlog 15 unit SQ DAILY 06/14/19 08/11/19 History [Basaglar Coripen U-100] Isosorbide Mononitrate [Imdur 60mg 90 mg PO DAILY 06/14/19 08/11/19 History ER tablet] Metformin HCl [Metformin ER 1,000 mg PO BID 06/14/19 08/12/19 History Osmotic] Ranolazine [Ranexa] 1,000 mg PO BID 06/14/19 08/11/19 History bisoproloL fumarate [Bisoprolol 10 mg PO BID 06/14/19 08/11/19 History 10mg Tablet] lisinopril 10 mg tablet 10 mg PO DAILY #90 tab 07/08/19 08/11/19 Rx gabapentin 600 mg tablet 600 mg PO TID #90 tab 07/13/19 08/11/19 Rx hydrocodone 5 mg-acetaminophen 325 1 tab PO TID PRN #90 tab 07/13/19 08/11/19 Rx mg tablet Ondansetron [Zofran 4mg ODT] 4 mg PO Q8HP PRN #20 tab.rapdis 08/02/19 08/11/19 Rx Promethazine HCl [Phenergan 25mg 25 mg PO Q6H PRN #30 tab 08/04/19 08/11/19 Rx tab] Mupirocin [Centany] 1 applic TOPICAL BID 08/11/19 08/11/19 History Allergies Allergy/AdvReac Type Severity Reaction Status Date / Time No Known Allergies Allergy Verified 08/11/19 16:30 Exam Vital signs and Labs for Last 24 Hours: Temp Pulse Resp BP Pulse Ox 97.9 F 82 20 142/106 H 98 08/12/19 08:00 08/12/19 08:00 08/12/19 08:00 08/12/19 08:00 08/12/19 08:00 Laboratory Results - last 24 hr 08/11/19 17:25: WBC 6.1, RBC 4.74, Hgb 14.3, Hct 46.8, MCV 98.6, MCH 30.1, MCHC 30.5 L, RDW 14.0, Plt Count 184, MPV 9.5, Neut % (Auto) 68.2, Lymph % (Auto) 25.0, Clay % (Auto) 4.5, Eos % (Auto) 1.9, Baso % (Auto) 0.4, Neut # (Auto) 4.2, Lymph # (Auto) 1.5, Clay # (Auto) 0.3, Eos # (Auto) 0.1, Baso # (Auto) 0.0 08/11/19 17:25: Sodium 135 L, Potassium 4.8, Chloride 101, Carbon Dioxide 27, Anion Gap 11.8, BUN 9 D, Creatinine 1.23 H, Estimated Creat Clear 68, Estimated GFR 45 L, Est GFR ( Amer) 54 L, Glucose 465 H*, Calcium 9.1, Total Bilirubin 0.5, AST 32, ALT 26, Alkaline Phosphatase 134 H, Total Protein 8.7 H, Albumin 3.1 L, Globulin 5.6 H, Albumin/Globulin Ratio 0.6 L 08/11/19 17:25: Troponin I < 0.02 08/11/19 17:25: Hemoglobin A1c 10.3 H 08/11/19 17:25: Acetone Level None detected 08/11/19 17:50: Urine Color Yellow, Urine Appearance Clear, Urine pH 6.0, Ur Specific [place] 1.015, Urine Protein Negative, Urine Glucose (UA) 3+, Urine Ketones Negative, Urine Blood 1+, Urine Nitrate Negative, Urine Bilirubin Negative, Urine Urobilinogen 0.2, Ur Leukocyte Esterase 1+ A, Urine RBC Occasional, Urine WBC 5-10, Ur Squamous Epith Cells Occasional, Urine Bacteria Trace 08/11/19 21:00: Lactate 1.1 08/12/19 07:07: WBC 4.5 L D, RBC 4.14 L, Hgb 12.5 D, Hct 39.1, MCV 94.5, MCH 30.2, MCHC 32.0, RDW 13.8, Plt Count 139 L, MPV 9.4, Neut % (Auto) 60.4, Lymph % (Auto) 32.0, Clay % (Auto) 4.8, Eos % (Auto) 2.5, Baso % (Auto) 0.3, Neut # (Auto) 2.7, Lymph # (Auto) 1.4, Clay # (Auto) 0.2, Eos # (Auto) 0.1, Baso # (Auto) 0.0 08/12/19 07:07: Sodium 143, Potassium 4.5, Chloride 107, Carbon Dioxide 31, Anion Gap 9.5, BUN 5 L D, Creatinine 0.97 D, Estimated Creat Clear 87, E stimated GFR 59, Est GFR ( Amer) 72 D, Glucose 160 H D, Calcium 8.6, Phosphorus 3.6, Magnesium 1.4, Total Bilirubin 0.6, AST 37, ALT 25, Alkaline Phosphatase 113, Total Protein 7.2, Albumin 2.6 L D, Globulin 4.6 H, Albumin/Globulin Ratio 0.6 L, Triglycerides 99, Cholesterol 143, LDL Cholesterol 95, VLDL Cholesterol 20, HDL Cholesterol 28 L, Cholesterol/HDL Ratio 5.1 H 08/12/19 07:27: POC Glucose 155 H I & O for Last 24 hours: Intake & Output 08/09/19 08/10/19 08/11/19 08/12/19 11:59 11:59 11:59 11:59 Intake Total 1914 / 1914 Output Total 350 / 350 Balance 1564 / 1564 Weight 189 lb - Constitutional no acute distress - *Routine Respiratory Exam Absent: respiratory distress - *Routine Cardiovascular Exam Present: RRR - *Routine Abdominal Exam Present: soft, tenderness Results - Labs 08/12/19 07:07 08/12/19 07:07 Laboratory Results - last 24 hr 08/11/19 17:25: WBC 6.1, RBC 4.74, Hgb 14.3, Hct 46.8, MCV 98.6, MCH 30.1, MCHC 30.5 L, RDW 14.0, Plt Count 184, MPV 9.5, Neut % (Auto) 68.2, Lymph % (Auto) 25.0, Clay % (Auto) 4.5, Eos % (Auto) 1.9, Baso % (Auto) 0.4, Neut # (Auto) 4.2, Lymph # (Auto) 1.5, Clay # (Auto) 0.3, Eos # (Auto) 0.1, Baso # (Auto) 0.0 08/11/19 17:25: Sodium 135 L, Potassium 4.8, Chloride 101, Carbon Dioxide 27, Anion Gap 11.8, BUN 9 D, Creatinine 1.23 H, Estimated Creat Clear 68, Estimated GFR 45 L, Est GFR ( Amer) 54 L, Glucose 465 H*, Calcium 9.1, Total Bilirubin 0.5, AST 32, ALT 26, Alkaline Phosphatase 134 H, Total Protein 8.7 H, Albumin 3.1 L, Globulin 5.6 H, Albumin/Globulin Ratio 0.6 L 08/11/19 17:25: Troponin I < 0.02 08/11/19 17:25: Hemoglobin A1c 10.3 H 08/11/19 17:25: Acetone Level None detected 08/11/19 17:50: Urine Color Yellow, Urine Appearance Clear, Urine pH 6.0, Ur Specific [place] 1.015, Urine Protein Negative, Urine Glucose (UA) 3+, Urine Ketones Negative, Urine Blood 1+, Urine Nitrate Negative, Urine Bilirubin Negative, Urine Urobilinogen 0.2, Ur Leukocyte Esterase 1+ A, Urine RBC Occasional, Urine WBC 5-10, Ur Squamous Epith Cells Occasional, Urine Bacteria Trace 08/11/19 21:00: Lactate 1.1 08/12/19 07:07: WBC 4.5 L D, RBC 4.14 L, Hgb 12.5 D, Hct 39.1, MCV 94.5, MCH 30.2, MCHC 32.0, RDW 13.8, Plt Count 139 L, MPV 9.4, Neut % (Auto) 60.4, Lymph % (Auto) 32.0, Clay % (Auto) 4.8, Eos % (Auto) 2.5, Baso % (Auto) 0.3, Neut # (Auto) 2.7, Lymph # (Auto) 1.4, Clay # (Auto) 0.2, Eos # (Auto) 0.1, Baso # (Auto) 0.0 08/12/19 07:07: Sodium 143, Potassium 4.5, Chloride 107, Carbon Dioxide 31, Anion Gap 9.5, BUN 5 L D, Creatinine 0.97 D, Estimated Creat Clear 87, Estimated GFR 59, Est GFR ( Amer) 72 D, Glucose 160 H D, Calcium 8.6, Phosphorus 3.6, Magnesium 1.4, Total Bilirubin 0.6, AST 37, ALT 25, Alkaline Phosphatase 113, Total Protein 7.2, Albumin 2.6 L D, Globulin 4.6 H, Albumin/Globulin Ratio 0.6 L, Triglycerides 99, Cholesterol 143, LDL Cholesterol 95, VLDL Cholesterol 20, HDL Cholesterol 28 L, Cholesterol/HDL Ratio 5.1 H 08/12/19 07:27: POC Glucose 155 H - Imaging CT scan - abdomen: report reviewed, image reviewed CT scan - pelvis: report reviewed, image reviewed US - abdomen: report reviewed, image reviewed Assessment and Plan (1) Symptomatic cholelithiasis Current visit: Yes Status: Acute Category: Medical Code(s): K80.20 - Calculus of gallbladder without cholecystitis without obstruction She is being scheduled for cholecystectomy. She understands her increased risk for perioperative cardiac event and wishes to undergo surgical intervention at this facility. I have discussed the risks and benefits including, but not limited to: Bleeding Infection Damage to surrounding tissue Inherent risks of sedation The patient agrees to proceed.
--- NOTE | 2019-08-12 10:52 | Progress Note ---
[facility] Anesthesia Checklist - Patient Identification Patient Identification: Arm Band, Verbal (Name & ) - Structural Data Admitted From: Inpatient Planned Operative Procedure/s: lap, choly Consent for Planned Operative Procedure(s) Verified: Yes Verified Documents: History and Physical - NPO Status Verified Time NPO: 00:00 - Additional verifications Patient : No Anesthesia Reactions: No Hx Blood Transfusions: No Blood Transfusion Reaction: No Cephalosporin Allergy: No Previous Colonoscopy: No - Cardiovascular Assessment Heart Sounds: S1 & S2 Pulse Strength: Baseline Pulse Rhythm: Regular Peripheral Edema: No - Airway Assessment C-Spine Mobility Assessed: Yes TMJ Mobility Assessed: Yes Dentition: Good Dentition - Neurological Assessment Level of Consciousness: Awake, Alert, Appropriate Hx Seizures: Yes Numbness or tingling in extremities: No - Anesthesia Plan Anesthesia Risk discussed: Yes Anesthesia Plan: Verified ASA Class: III Anesthesia Type: General [facility] History I have reviewed the patient's past medical history: Yes Medical History: Reports:: Anxiety, Coronary Artery Disease, Depression, Diabetes Mellitus Type 2, Hyperlipidemia, Hypertension, Myocardial Infarction Denies:: Cancer, Diabetes Mellitus Type 1, Internal Pacemaker, MRSA, Seizures *Have you ever received a pneumonia vaccine?: No *Have you received a flu vaccine this season?: No Anesthesia experience/problems:: none Laterality Cases: Bilateral: Other Other Surgeries: Yes: No Previous Surgery, Angiogram, Angioplasty, Cardiac Catheterization, Cardiac Surgery, Coronary Stent, Dilation and Curettage, Other. No: Pacemaker Amputation: No Fractures: No - *Social History Educational Level: Completed High School Smoking Status: Never smoker # Packs/Day (cigarettes): 1 Alcohol Intake: never Alcohol Intake Frequency:: other Substance Use Type: denies use *Occupational Status:: employed Housing: apartment Household Members: none *Travel in the last 8 weeks: None - Psychiatric History Pschychiatric History:: Reports:: Anxiety, Depression Family Hx:: Asthma, Cancer, Coronary Artery Disease, Diabetes, Hyperlipidemia, Hypertension, Thyroid Disorder
--- NOTE | 2019-08-12 12:51 | History & Physical Report ---
*Admission Date: 08/11/19 *Chief complaint: abd pain *History of present illness: 59-yr old female presents to office with c/o of weakness, n/v and unable to keep liquids down x 1 week. Pt had been to [facility] and [facility] a few times over one week. PT has poorly controlled diabetes mellitus type 2 with 1 week of diffuse abdominal discomfort with nausea and vomiting. Pt admitted for dehydration,uti and hyperglycemia. [facility] History I have reviewed the patient's past medical history: Yes Medical History: Reports:: Anxiety, Coronary Artery Disease, Depression, Diabetes Mellitus Type 2, Hyperlipidemia, Hypertension, Myocardial Infarction, Seizures Denies:: Cancer, Diabetes Mellitus Type 1, Internal Pacemaker, MRSA *Have you ever received a pneumonia vaccine?: No *Have you received a flu vaccine this season?: No Other Medical History: Denies: Blood Transfusion Reaction Anesthesia experience/problems:: none Laterality Cases: Bilateral: Other Other Surgeries: Yes: No Previous Surgery, Angiogram, Angioplasty, Cardiac Catheterization, Cardiac Surgery, Coronary Stent, Dilation and Curettage, Other. No: Pacemaker Amputation: No Fractures: No - *Social History Educational Level: Completed High School Smoking Status: Never smoker # Packs/Day (cigarettes): 1 Alcohol Intake: never Alcohol Intake Frequency:: other Substance Use Type: denies use *Occupational Status:: employed Housing: apartment Household Members: none *Travel in the last 8 weeks: None - Psychiatric History Pschychiatric History:: Reports:: Anxiety, Depression Family Hx:: Asthma, Cancer, Coronary Artery Disease, Diabetes, Hyperlipidemia, Hypertension, Thyroid Disorder Review of Systems - Review of Systems Review of systems:: pertinent systems reviewed and negative unless documented below - Constitutional Reports fatigue, Reports weakness, Denies body ache(s), Denies fever(s) - Eyes Denies change in vision - ENT Denies bleeding gums, Denies sore throat - *Cardiovascular Denies chest pain with activity - *Respiratory Denies chest congestion - *Gastrointestinal Reports abdominal pain, Reports nausea, Reports vomiting - *Genitourinary Reports urinary incontinence, Denies dribbling after urination - *Musculoskeletal Denies stiffness - Integumentary/Breasts Denies rash - *Neurologic Denies abnormal movements - Psychiatric Denies anxiety - Endocrine Denies flushing - Hematologic/Lymphatic Denies enlarged lymph nodes - Allergic/Immunologic Denies lip swelling Meds Home Medications Medication Instructions Recorded Confirmed Type cyclobenzaprine 10 mg tablet 10 mg PO TIDP PRN 30 Days #90 tab 06/24/18 08/11/19 History insulin lispro protamine-lispro 50 unit SQ BID #10 ml 05/31/19 08/11/19 Rx 100 unit/mL (75-25) subcutaneous susp ARIPiprazole [Aripiprazole 15mg 15 mg PO HS 06/14/19 08/11/19 History Tablet] Aspirin [Low Dose Aspirin EC] 81 mg PO HS 06/14/19 08/12/19 History Atorvastatin Calcium [Lipitor 40mg 40 mg PO HS 06/14/19 08/12/19 History Tablet] Clopidogrel Bisulfate [Plavix 75mg 75 mg PO DAILY 06/14/19 08/11/19 History Tab] Fluoxetine HCl [Prozac] 60 mg PO DAILY 06/14/19 08/11/19 History Insulin Glargine,Hum.rec.anlog 15 unit SQ DAILY 06/14/19 08/11/19 History [Haydee Garcia U-100] Isosorbide Mononitrate [Imdur 60mg 90 mg PO DAILY 06/14/19 08/11/19 History ER tablet] Metformin HCl [Metformin ER 1,000 mg PO BID 06/14/19 08/12/19 History Osmotic] Ranolazine [Ranexa] 1,000 mg PO BID 06/14/19 08/11/19 History bisoproloL fumarate [Bisoprolol 10 mg PO BID 06/14/19 08/11/19 History 10mg Tablet] lisinopril 10 mg tablet 10 mg PO DAILY #90 tab 07/08/19 08/11/19 Rx gabapentin 600 mg tablet 600 mg PO TID #90 tab 07/13/19 08/11/19 Rx hydrocodone 5 mg-acetaminophen 325 1 tab PO TID PRN #90 tab 07/13/19 08/11/19 Rx mg tablet Ondansetron [Zofran 4mg ODT] 4 mg PO Q8HP PRN #20 tab.rapdis 08/02/19 08/11/19 Rx Promethazine HCl [Phenergan 25mg 25 mg PO Q6H PRN #30 tab 08/04/19 08/11/19 Rx tab] Mupirocin [Centany] 1 applic TOPICAL BID 08/11/19 08/11/19 History Allergies Allergy/AdvReac Type Severity Reaction Status Date / Time No Known Allergies Allergy Verified 08/11/19 16:30 Exam Vital signs and Labs for Last 24 Hours: Temp Pulse Resp BP Pulse Ox 97.9 F 82 20 142/106 H 98 08/12/19 08:00 08/12/19 08:00 08/12/19 08:00 08/12/19 08:00 08/12/19 08:00 Laboratory Results - last 24 hr 08/11/19 17:25: WBC 6.1, RBC 4.74, Hgb 14.3, Hct 46.8, MCV 98.6, MCH 30.1, MCHC 30.5 L, RDW 14.0, Plt Count 184, MPV 9.5, Neut % (Auto) 68.2, Lymph % (Auto) 25.0, Door % (Auto) 4.5, Eos % (Auto) 1.9, Baso % (Auto) 0.4, Neut # (Auto) 4.2, Lymph # (Auto) 1.5, Door # (Auto) 0.3, Eos # (Auto) 0.1, Baso # (Auto) 0.0 08/11/19 17:25: Sodium 135 L, Potassium 4.8, Chloride 101, Carbon Dioxide 27, Anion Gap 11.8, BUN 9 D, Creatinine 1.23 H, Estimated Creat Clear 68, Estimated GFR 45 L, Est GFR ( Amer) 54 L, Glucose 465 H*, Calcium 9.1, Total Bi lirubin 0.5, AST 32, ALT 26, Alkaline Phosphatase 134 H, Total Protein 8.7 H, Albumin 3.1 L, Globulin 5.6 H, Albumin/Globulin Ratio 0.6 L 08/11/19 17:25: Troponin I < 0.02 08/11/19 17:25: Hemoglobin A1c 10.3 H 08/11/19 17:25: Acetone Level None detected 08/11/19 17:50: Urine Color Yellow, Urine Appearance Clear, Urine pH 6.0, Ur Specific [place] 1.015, Urine Protein Negative, Urine Glucose (UA) 3+, Urine Ketones Negative, Urine Blood 1+, Urine Nitrate Negative, Urine Bilirubin Negative, Urine Urobilinogen 0.2, Ur Leukocyte Esterase 1+ A, Urine RBC Occasional, Urine WBC 5-10, Ur Squamous Epith Cells Occasional, Urine Bacteria Trace 08/11/19 21:00: Lactate 1.1 08/12/19 07:07: WBC 4.5 L D, RBC 4.14 L, Hgb 12.5 D, Hct 39.1, MCV 94.5, MCH 30.2, MCHC 32.0, RDW 13.8, Plt Count 139 L, MPV 9.4, Neut % (Auto) 60.4, Lymph % (Auto) 32.0, [place] % (Auto) 4.8, Eos % (Auto) 2.5, Baso % (Auto) 0.3, Neut # (Auto) 2.7, Lymph # (Auto) 1.4, Door # (Auto) 0.2, Eos # (Auto) 0.1, Baso # (Auto) 0.0 08/12/19 07:07: Sodium 143, Potassium 4.5, Chloride 107, Carbon Dioxide 31, Anion Gap 9.5, BUN 5 L D, Creatinine 0.97 D, Estimated Creat Clear 87, Estimated GFR 59, Est GFR ( Amer) 72 D, Glucose 160 H D, Calcium 8.6, Phosphorus 3.6, Magnesium 1.4, Total Bilirubin 0.6, AST 37, ALT 25, Alkaline Phosphatase 113, Total Protein 7.2, Albumin 2.6 L D, Globulin 4.6 H, Albumin/Globulin Ratio 0.6 L, Triglycerides 99, Cholesterol 143, LDL Cholesterol 95, VLDL Cholesterol 20, HDL Cholesterol 28 L, Cholesterol/HDL Ratio 5.1 H 08/12/19 07:27: POC Glucose 155 H I & O for Last 24 hours: Intake & Output 08/10/19 08/11/19 08/12/19 08/13/19 11:59 11:59 11:59 11:59 Intake Total 1914 / 1914 0 / 0 Output Total 350 / 350 Balance 1564 / 1564 0 / 0 Weight 189 lb - Constitutional no acute distress - *Routine HEENT Exam Head: Present: normocephalic Eye: Present: PERRL ENT: Present: mucous membranes moist - *Routine Neck Exam Present: supple. Absent: lymphadenopathy - *Routine Respiratory Exam Present: CTA bilaterally - *Routine Cardiovascular Exam Present: RRR - *Routine Abdominal Exam Present: soft, normoactive bowel sounds, tenderness, obese - *Routine Extremities Exam Present: full ROM - *Routine Skin Exam Present: intact - *Routine Neurological Exam Present: alert, oriented X3 - Routine Psychiatric Exam Present: normal affect Assessment and Plan (1) Symptomatic cholelithiasis Current visit: Yes Status: Acute Category: Medical Code(s): K80.20 - Calculus of gallbladder without cholecystitis without obstruction - Assessment and plan all Dx Assessment and Plan for all problems:: rounded with dr clements all orders per tyree us gallbladder
--- NOTE | 2019-08-12 17:38 | Operative Note ---
Date of procedure: 08/12/19 Pre-op Diagnosis:: Symptomatic cholelithiasis Post-op Diagnosis:: Acute calculus cholecystitis with hydrops Procedure performed:: Laparoscopic cholecystectomy Surgeon:: Min Quiñonez MD [employer]:: Vicente Davis Anesthesia: GETA Estimated blood loss (mL): 15 Operative findings:: Severe gallbladder distention with obvious hydrops necessitating decompression Multiple large stones Severe inflammation of the gallbladder wall with pronounced infundibular thickening Operative note:: After informed consent was obtained, the patient was taken to the operating room and placed in the supine position. General anesthesia was induced and the abdomen was prepped and draped in a sterile fashion. After infiltration with local anesthetic an infraumbilical incision was made. A Veress needle was placed in position. The abdomen was insufflated. A 5 mm optical trocar was placed in position. Under direct visualization, a 12 mm trocar was placed in the subxiphoid position and 2 additional 5 mm trocars were placed in the right upper quadrant. The gallbladder was severely distended. A small otomy was made in the dome of the gallbladder with harmonic kisha. Clear viscous fluid was evacuated with appropriate decompression. Severe thickening of the gallbladder wall and pronounced infundibular thickening noted. The gallbladder was elevated up and over the liver margin. The tissue around the cystic duct was carefully dissected. 3 clips were placed proximally and the duct was transected with harmonic kisha. Harmonic kisha were then utilized to dissect the gallbladder away from the liver margin with careful attention to the control of the cystic artery. The gallbladder was placed in a retrieval bag and removed through the subxiphoid trocar site after it was extended along the left and right lateral margin utilizing scalpel. The right upper quadrant was thoroughly irrigated. No active bleeding or bile leak was noted. Fascia at the subxiphoid trocar site was reapproximated utilizing 0 Ethibond. The remaining trocars were removed. All wounds were irrigated and skin was closed with 4-0 Monocryl in a subcuticular fashion. Steri-Strips were applied. The patient's anesthetic agents were reversed and extubation was completed prior to transfer to recovery in stable condition. Condition: stable Disposition: PACU Specimens:: Gallbladder Complications:: No immediate
--- NOTE | 2019-08-12 17:45 | Progress Note ---
[facility] Anesthesia Record Part I Intake, IV Amount: 1,200 Estimated blood loss (mL): 30 Urine output (mL): 0 Blood Products used (#): none Blood Pressure: 139/74 SaO2: 97 Pulse Rate: 95 Respiratory Rate: 14 Temperature: 98.5 F Patient is:: Awake, Drowsy, Stable Stable to PACU at:: 17:38
--- NOTE | 2019-08-13 06:44 | Progress Note ---
[facility] Anesthesia Record Part II Discharge Time: 18:08 Destination: Medical Surgical Department PACU nurse assessment reviewed?: Yes Patient Condition:: Good Anesthesia Complications:: None Swallowing reflex intact?: Yes Cyanosis?: No Blood Pressure: 140/71 Pulse Rate: 104 Temperature: 98.6 F Mental Status: Alert & Oriented Pain level:: 0 Nausea and/or vomitting:: None Intake, IV Amount: 0
--- NOTE | 2019-08-13 06:57 | Progress Note ---
Subjective Patient reports: feels better Exam Vital signs and Labs for Last 24 Hours: Temp Pulse Resp BP Pulse Ox 98.6 F 104 H 16 140/71 95 08/13/19 06:43 08/13/19 06:43 08/13/19 04:00 08/13/19 06:43 08/13/19 04:00 Laboratory Results - last 24 hr 08/12/19 07:07: WBC 4.5 L D, RBC 4.14 L, Hgb 12.5 D, Hct 39.1, MCV 94.5, MCH 30.2, MCHC 32.0, RDW 13.8, Plt Count 139 L, MPV 9.4, Neut % (Auto) 60.4, Lymph % (Auto) 32.0, [place] % (Auto) 4.8, Eos % (Auto) 2.5, Baso % (Auto) 0.3, Neut # (Auto) 2.7, Lymph # (Auto) 1.4, [place] # (Auto) 0.2, Eos # (Auto) 0.1, Baso # (Auto) 0.0 08/12/19 07:07: Sodium 143, Potassium 4.5, Chloride 107, Carbon Dioxide 31, Anion Gap 9.5, BUN 5 L D, Creatinine 0.97 D, Estimated Creat Clear 87, Estimated GFR 59, Est GFR ( Amer) 72 D, Glucose 160 H D, Calcium 8.6, Phosphorus 3.6, Magnesium 1.4, Total Bilirubin 0.6, AST 37, ALT 25, Alkaline Phosphatase 113, Total Protein 7.2, Albumin 2.6 L D, Globulin 4.6 H, Albumin/Globulin Ratio 0.6 L, Triglycerides 99, Cholesterol 143, LDL Cholesterol 95, VLDL Cholesterol 20, HDL Cholesterol 28 L, Cholesterol/HDL Ratio 5.1 H 08/12/19 07:27: POC Glucose 155 H 08/12/19 18:31: POC Glucose 235 H 08/12/19 20:23: POC Glucose 270 H 08/13/19 05:31: POC Glucose 283 H I & O for Last 24 hours: Intake & Output 08/10/19 08/11/19 08/12/19 08/13/19 11:59 11:59 11:59 11:59 Intake Total 1914 / 1914 2564 / 2564 Output Total 350 / 350 Balance 1564 / 1564 2564 / 2564 Weight 189 lb 192 lb 8 oz Microbiology Reports for the Last 24 Hours: Microbiology 08/11/19 17:50 Urine,Clean Catch Urine Culture - Preliminary NO GROWTH AFTER 24 HOURS - Constitutional no acute distress - *Routine Respiratory Exam Absent: respiratory distress - *Routine Cardiovascular Exam Present: tachycardia - *Routine Abdominal Exam Present: soft Comments: dressing in place. no erythema. Progress Note: A&P (1) Symptomatic cholelithiasis Status: Acute Current Visit: Yes (2) Acute calculous cholecystitis Status: Acute Assessment and plan: Overall, doing fairly well status post laparoscopic cholecystectomy. Slowly advance diet Increase ambulation Follow-up morning labs Possible discharge home later today (after additional Zosyn infusion) with close outpatient follow-up Current Visit: Yes (3) Gallbladder hydrops Status: Acute Current Visit: Yes
[2019-08-13 07:27] LABS: Anion Gap 12.8 mEq/L (5-15)
[2019-08-13 07:33] LABS: Albumin Level 2.4 gm/dL (3.4-5.0); Bilirubin,Direct 0.3 mg/dL (0.0-0.2); Bilirubin,Indirect 0.5 mg/dL (0.0-0.9); Bilirubin,Total 0.8 mg/dL (0.2-1.0); Total Protein,Serum 6.8 gm/dL (6.4-8.2)
[2019-08-13 07:35] LABS: Basophils % 0.1 % (0.1-2.0); Eosinophils % 0.1 % (0.1-12.0); Hematocrit 37.8 % (37.0-47.0); Hemoglobin 12.1 g/dL (12.2-16.2); Lymphocytes # 0.5 K/mm3 (0.7-4.5); Lymphocytes % 6.9 % (10-50); Mean Corpuscular HGB Conc 31.9 g/dL (31.8-35.4); Mean Corpuscular Volume 96.2 fl (81-99); Mean Platelet Volume 9.8 fl (7.4-10.4); Monocytes # 0.2 K/mm3 (0.1-1.0); Monocytes % 2.1 % (1.7-9.3); Neutrophils # 6.3 K/mm3 (1.8-7.8); Neutrophils % 90.8 % (37.0-80.0); Platelet Count 143 K/mm3 (142-424); Red Blood Count 3.93 M/mm3 (4.20-5.40); Red Cell Distribution Width 13.9 % (11.5-17.5); White Blood Count 6.9 K/mm3 (4.8-10.8)
[2019-08-13 08:23] LABS: Lymphocytes % 7 % (10-50); Monocytes % 3 % (2-9); Neutrophils % 90 % (42-76); Total Cells Counted 100
[2019-08-13 08:24] LABS: RBC Morphology Normal
--- NOTE | 2019-08-13 15:14 | Discharge Summary ---
General - General Admission date:: 08/11/19 Discharge date: 08/13/19 HPI HPI: 59-yr old female presents to office with c/o of weakness, n/v and unable to keep liquids down x 1 week. Pt had been to [facility] and ed a few times over one week. PT has poorly controlled diabetes mellitus type 2 with 1 week of diffuse abdominal discomfort with nausea and vomiting. Pt admitted for dehydration,uti and hyperglycemia. Hospital Course Hospital Course: ct abd/pelvis:IMPRESSION: 1. Distended gallbladder with multiple stones. No obvious biliary dilatation or gallbladder wall thickening or pericholecystic fluid. Gallbladder ultrasound may be of further value. 2. Mild ectasia of the renal collecting systems with mild ureteral ileal enhancement on the left which could be due to underlying urinary tract infection 3. Splenomegaly. There is some mild irregularity of the liver surface which could be related to early cirrhosis. 4. Thickening of the lower rectum/anal verge. Please correlate with physical exam gallbladder us: FINDINGS: Pancreas: Unremarkable/Not well seen Liver: Unremarkable. There is appropriate direction of blood flow within a non dilated portal vein. Right kidney: Unremarkable appearing. No hydronephrosis. Gallbladder: Gallbladder is distended with multiple stones. No gallbladder wall thickening, pericholecystic fluid, or biliary dilatation. Common bile duct is 4 mm. IMPRESSION: Distended gallbladder with cholelithiasis surgery consult- see note removal of gallbladder- see dc instructions per dr quiñonez. follow up in office in 1 weeks and with uti - med sent Objective Vital signs: Temp Pulse Resp BP Pulse Ox 97.9 F 80 18 161/83 H 95 08/13/19 08:00 08/13/19 08:00 08/13/19 08:00 08/13/19 08:00 08/13/19 08:00 no acute distress - *Routine HEENT Exam Head: Present: normocephalic Eye: Present: PERRL ENT: Present: mucous membranes moist - *Routine Respiratory Exam Present: CTA bilaterally - *Routine Cardiovascular Exam Present: RRR - *Routine Abdominal Exam Present: soft, normoactive bowel sounds, tenderness Comments: dressing c/d/i - *Routine Extremities Exam Present: full ROM - *Routine Skin Exam Present: intact Comments: dressing c/d/i - *Routine Neurological Exam Present: alert, oriented X3 - Routine Psychiatric Exam Present: normal affect Results Labs on day of discharge: Labs from last 24 hours 08/13/19 08/13/19 08/13/19 11:16 06:46 06:46 WBC RBC Hgb Hct MCV MCH MCHC RDW Plt Count MPV Neut % (Auto) Lymph % (Auto) [place] % (Auto) Eos % (Auto) Baso % (Auto) Neut # (Auto) Lymph # (Auto) [place] # (Auto) Eos # (Auto) Baso # (Auto) Total Counted Neutrophils % (Manual) Lymphocytes % (Manual) Monocytes % (Manual) Platelet Estimate RBC Morphology Sodium 139 Potassium 4.8 Chloride 105 Carbon Dioxide 26 Anion Gap 12.8 BUN 18 D Creatinine 1.53 H D Estimated Creat Clear 56 Estimated GFR 35 L Est GFR ( Amer) 42 L D Glucose 299 H D POC Glucose 313 H* Calcium 8.0 L Total Bilirubin 0.8 Direct Bilirubin 0.3 H Indirect Bilirubin 0.5 AST 54 H D ALT 33 D Alkaline Phosphatase 101 Total Protein 6.8 Albumin 2.4 L 08/13/19 08/13/19 08/12/19 06:46 05:31 20:23 WBC 6.9 D RBC 3.93 L Hgb 12.1 L Hct 37.8 MCV 96.2 MCH 30.7 MCHC 31.9 RDW 13.9 Plt Count 143 MPV 9.8 Neut % (Auto) 90.8 H Lymph % (Auto) 6.9 L [place] % (Auto) 2.1 Eos % (Auto) 0.1 Baso % (Auto) 0.1 Neut # (Auto) 6.3 Lymph # (Auto) 0.5 L [place] # (Auto) 0.2 Eos # (Auto) 0.0 Baso # (Auto) 0.0 Total Counted 100 Neutrophils % (Manual) 90 H Lymphocytes % (Manual) 7 L Monocytes % (Manual) 3 Platelet Estimate Normal RBC Morphology Normal Sodium Potassium Chloride Carbon Dioxide Anion Gap BUN Creatinine Estimated Creat Clear Estimated GFR Est GFR ( Amer) Glucose POC Glucose 283 H 270 H Calcium Total Bilirubin Direct Bilirubin Indirect Bilirubin AST ALT Alkaline Phosphatase Total Protein Albumin 08/12/19 18:31 WBC RBC Hgb Hct MCV MCH MCHC RDW Plt Count MPV Neut % (Auto) Lymph % (Auto) [place] % (Auto) Eos % (Auto) Baso % (Auto) Neut # (Auto) Lymph # (Auto) [place] # (Auto) Eos # (Auto) Baso # (Auto) Total Counted Neutrophils % (Manual) Lymphocytes % (Manual) Monocytes % (Manual) Platelet Estimate RBC Morphology Sodium Potassium Chloride Carbon Dioxide Anion Gap BUN Creatinine Estimated Creat Clear Estimated GFR Est GFR ( Amer) Glucose POC Glucose 235 H Calcium Total Bilirubin Direct Bilirubin Indirect Bilirubin AST ALT Alkaline Phosphatase Total Protein Albumin - Additional Comments rounded with dr clements all orders per dr clements DS: Diagnosis - Discharge Diagnosis (1) Symptomatic cholelithiasis Status: Acute (2) Acute calculous cholecystitis Status: Acute (3) Gallbladder hydrops Status: Acute (4) UTI (urinary tract infection) Status: Acute Discharge Plan - Patient Discharge Instructions ACTIVITY: Continue current activity DIET: continue same diet Patient Instructions: DI for Vomiting -- Adult, DI for Surgical Site Infection, Cholecystectomy -- Laparoscopic Surgery, Nausea and Vomiting-Adult - Follow up Plan Follow up with: Larry Clements MD [Staff Physician] - 08/20/19 1:45 pm Min Quiñonez MD [Staff Physician] - 08/18/19 10:00 am Disposition: Home, Self-Intermediate Medications: Home Medications Medication Instructions Recorded Confirmed Type cyclobenzaprine 10 mg tablet 10 mg PO TIDP PRN 30 Days #90 tab 06/24/18 08/11/19 History insulin lispro protamine-lispro 50 unit SQ BID #10 ml 05/31/19 08/11/19 Rx 100 unit/mL (75-25) subcutaneous susp ARIPiprazole [Aripiprazole 15mg 15 mg PO HS 06/14/19 08/11/19 History Tablet] Aspirin [Low Dose Aspirin EC] 81 mg PO HS 06/14/19 08/12/19 History Atorvastatin Calcium [Lipitor 40mg 40 mg PO HS 06/14/19 08/12/19 History Tablet] Clopidogrel Bisulfate [Plavix 75mg 75 mg PO DAILY 06/14/19 08/11/19 History Tab] Fluoxetine HCl [Prozac] 60 mg PO DAILY 06/14/19 08/11/19 History Insulin Glargine,Hum.rec.anlog 15 unit SQ DAILY 06/14/19 08/11/19 History [Basaglar Kwikpen U-100] Isosorbide Mononitrate [Imdur 60mg 90 mg PO DAILY 06/14/19 08/11/19 History ER tablet] Metformin HCl [Metformin ER 1,000 mg PO BID 06/14/19 08/12/19 History Osmotic] Ranolazine [Ranexa] 1,000 mg PO BID 06/14/19 08/11/19 History bisoproloL fumarate [Bisoprolol 10 mg PO BID 06/14/19 08/11/19 History 10mg Tablet] lisinopril 10 mg tablet 10 mg PO DAILY #90 tab 07/08/19 08/11/19 Rx gabapentin 600 mg tablet 600 mg PO TID #90 tab 07/13/19 08/11/19 Rx hydrocodone 5 mg-acetaminophen 325 1 tab PO TID PRN #90 tab 07/13/19 08/11/19 Rx mg tablet Ondansetron [Zofran 4mg ODT] 4 mg PO Q8HP PRN #20 tab.rapdis 08/02/19 08/11/19 Rx Promethazine HCl [Phenergan 25mg 25 mg PO Q6H PRN #30 tab 08/04/19 08/11/19 Rx tab] Mupirocin [Centany] 1 applic TOPICAL BID 08/11/19 08/11/19 History cephALEXin [Keflex 500mg Cap] 500 mg PO BID 10 Days #20 cap 08/13/19 Rx Prescriptions/Medication Reconciliation: New cephALEXin [Keflex 500mg Cap] 500 mg PO BID 10 Days #20 cap Continued cyclobenzaprine 10 mg tablet 10 mg PO TIDP PRN 30 Days #90 tab PRN Reason: Muscle Spasm gabapentin 600 mg tablet 600 mg PO TID #90 tab insulin lispro protamine-lispro 100 unit/mL (75-25) subcutaneous susp 50 unit SQ BID #10 ml lisinopril 10 mg tablet 10 mg PO DAILY #90 tab hydrocodone 5 mg-acetaminophen 325 mg tablet 1 tab PO TID PRN #90 tab PRN Reason: pain Isosorbide Mononitrate [Imdur 60mg ER tablet] 90 mg PO DAILY Insulin Glargine,Hum.rec.anlog [Basaglar Kwikpen U-100] 15 unit SQ DAILY Fluoxetine HCl [Prozac] 60 mg PO DAILY Clopidogrel Bisulfate [Plavix 75mg Tab] 75 mg PO DAILY bisoproloL fumarate [Bisoprolol 10mg Tablet] 10 mg PO BID Atorvastatin Calcium [Lipitor 40mg Tablet] 40 mg PO HS Aspirin [Low Dose Aspirin EC] 81 mg PO HS ARIPiprazole [Aripiprazole 15mg Tablet] 15 mg PO HS Ondansetron [Zofran 4mg ODT] 4 mg PO Q8HP PRN #20 tab.rapdis PRN Reason: Nausea Ranolazine [Ranexa] 1,000 mg PO BID Metformin HCl [Metformin ER Osmotic] 1,000 mg PO BID Promethazine HCl [Phenergan 25mg tab] 25 mg PO Q6H PRN #30 tab PRN Reason: Nausea And Vomiting Mupirocin [Centany] 1 applic TOPICAL BID - Problem Reconciliation Problems Reviewed?: Yes
== END 2019-08-13 16:35 | disposition home or self-care (01) ==
LOC: ER 17:15 → 2ND 17:15
PROVIDERS: ADMIT Emergency Medicine; ATTEND Emergency Medicine
CPT/HCPCS: 36415; 74177; 76705; 80048; 80053; 80061; 80076; 81001; 82009; 82962; 83036; 83605; 83735; 84100; 84484; 85007; 85025; 87040; 87086; 88304; 96365; 96366; 96375; 99285; G0378; J1335; J2405; J2543; Q9967

== ENCOUNTER → 2019-09-10 13:31 | Outpatient (CLI) | payer MEDICAID, SELFPAY ==
[2019-09-10 17:34] LABS: Basophils % 0.6 % (0.1-2.0); Eosinophils # 0.1 K/mm3 (0.0-0.4); Eosinophils % 2.4 % (0.1-12.0); Hematocrit 46.4 % (37.0-47.0); Hemoglobin 14.3 g/dL (12.2-16.2); Lymphocytes # 1.3 K/mm3 (0.7-4.5); Lymphocytes % 25.9 % (10-50); Mean Corpuscular HGB Conc 30.9 g/dL (31.8-35.4); Mean Corpuscular Hemoglobin 30.6 pg (27.0-31.2); Mean Platelet Volume 10.5 fl (7.4-10.4); Monocytes # 0.2 K/mm3 (0.1-1.0); Monocytes % 4.5 % (1.7-9.3); Neutrophils # 3.4 K/mm3 (1.8-7.8); Neutrophils % 66.5 % (37.0-80.0); Platelet Count 147 K/mm3 (142-424); Red Blood Count 4.69 M/mm3 (4.20-5.40); Red Cell Distribution Width 13.8 % (11.5-17.5); White Blood Count 5.1 K/mm3 (4.8-10.8)
[2019-09-10 18:03] LABS: Alanine Aminotransferase 29 U/L (9-52); Albumin Level 3.4 g/dL (3.4-5.0); Albumin/Globulin Ratio 0.8 (1.1-1.8); Alkaline Phosphatase 114 U/L (46-116); Aspartate Amino Transferase 31 U/L (15-37); Bilirubin,Total 0.4 mg/dL (0.2-1.0); Blood Urea Nitrogen 8 mg/dL (7-18); Calcium 9.2 mg/dL (8.5-10.1); Chloride 107 mmol/L (98-107); Creatinine,Serum 0.93 mg/dL (0.55-1.02); Estimated Glomerular Filt Rate 62 ml/min (>60); Free T4 (Free Thyroxine) 1.21 ng/dl (0.76-1.46); GFR (African American) 75 ML/MIN (>60); Globulin 4.5 gm/dl (1.3-3.2); Glucose 219 mg/dL (74-106); Potassium 4.6 mmoL/L (3.5-5.1); Sodium 145 mmol/L (137-145); Thyroid Stimulating Hormone 0.45 uIU/ml (0.358-3.740); Total Protein,Serum 7.9 g/dL (6.4-8.2)
[2019-09-10 18:22] LABS: Carbon Dioxide 30 mmol/L (21.0-32.0)
[2019-09-10 18:23] LABS: Hemoglobin A1C 10.6 % (0.0-7.0)
[2019-09-11 08:39] LABS: Creatinine, Urine 41.7 mg/dL (Not Estab.); Microalbumin, Urine 68.2 ug/mL (Not Estab.)
== END ==
PROVIDERS: Visit Provider Emergency Medicine
DX: E11.65 Type 2 diabetes mellitus with hyperglycemia (principal); Z79.4 Long term (current) use of insulin; Z79.899 Other long term (current) drug therapy; I10 Essential (primary) hypertension
CPT/HCPCS: 80053; 82043; 82570; 83036; 84439; 84443; 85025

== ENCOUNTER → 2019-09-10 17:04 | Outpatient (CLI) | payer MEDICAID, SELFPAY | PROVIDERS: Visit Provider Emergency Medicine | DX: E11.65 Type 2 diabetes mellitus with hyperglycemia (principal) ==

== ENCOUNTER → 2019-10-08 13:35 | Outpatient (CLI) | payer MEDICAID, SELFPAY ==
--- NOTE | 2019-10-08 13:36 | CT_ITS ---
PROCEDURE: CT CHEST WO CON CLINICAL INDICATION: lung nodules on CT abd/pelvis Follow-up pulmonary nodule COMPARISON: CT ABDOMEN PELVIS W CON from 08/11/2019 CT ABDOMEN PELVIS W CON from 09/26/2019 TECHNIQUE: Axial images obtained with sagittal and coronal reformats. All CT scans at the facility use one or more dose reduction, viz: automated exposure control, ma/kV adjustment per patient size (including targeted exams where dose is matched to indication, i.e. head), or iterative reconstruction technique. FINDINGS: HEART AND MEDIASTINAL STRUCTURES: The thyroid gland is enlarged. The isthmus and left lobe are enlarged with low-density changes of both isthmus and left lobe. Ultrasound may provide further evaluation. There are coronary artery calcifications. No mediastinal or hilar mass or adenopathy. LUNGS AND PLEURAL SPACES: The nodular opacities in the lung bases noted on the recent abdomen CT are not evident on today's exam. The patchy area of infiltrate in the right lung base medially has shown some improvement with only some minimal increased density in this area adjacent to a prominent spur of the thoracic spine. There is a 5 mm noncalcified nodule in the left upper lobe the image 26 series 3. This area was not previously imaged on the abdomen CT. A 3 mm nodular opacity is present in the right lower lobe posteriorly image 34 series 3. This area was not previously imaged. No effusions. BONY STRUCTURES: No acute bony anomalies. What appears to represent a hemangioma involves the T8 vertebral body. UPPER ABDOMEN: Splenomegaly. Increased density is present in the abdominal wall centrally within the soft tissues and could be due to prior surgery ADDITIONAL FINDINGS: No other significant abnormalities. IMPRESSION: Multiple nodular opacities in the lung bases that were seen on the previous exam are not apparent on today's study consistent with improvement in inflammatory or infectious changes.. The patchy infiltrate in the right lung base has also improved with some minimal residual atelectasis or patchy infiltrate adjacent to a spur in the right lower lobe medially. There is a 5 mm nodule in the left upper lobe and 3 mm nodule in the right lower lobe. These areas were not previously imaged. Consider CT follow-up in 6 months to confirm stability Dictated by: Sen Jin MD 10/09/2019 08:41 Electronically signed by Sen Jin MD in [place] 10/09/2019 08:41
--- NOTE | 2019-10-08 13:52 | HMH.ITSHM ---
Current Home Medications as stated by this patient Mary Coronel or patient financial representative. []hydrocodone gabapentin atorvastatin bisoprolol aspirin clopidogrel ranexa lisinopril isosorb humalog basaglar cyclobenzapr abilify prozac metformin
== END ==
PROVIDERS: PCP Emergency Medicine; Visit Provider Physician Assistant
DX: R91.8 Other nonspecific abnormal finding of lung field (principal)
CPT/HCPCS: 71250

== ENCOUNTER → 2019-11-05 11:18 | Outpatient (CLI) | payer MEDICAID, SELFPAY ==
[2019-11-05 11:47] LABS: Basophils % 0.4 % (0.1-2.0); Eosinophils # 0.1 K/mm3 (0.0-0.4); Eosinophils % 2.1 % (0.1-12.0); Hematocrit 42.1 % (37.0-47.0); Hemoglobin 13.7 g/dL (12.2-16.2); Lymphocytes # 1.3 K/mm3 (0.7-4.5); Lymphocytes % 32.8 % (10-50); Mean Corpuscular HGB Conc 32.6 g/dL (31.8-35.4); Mean Corpuscular Hemoglobin 30.4 pg (27.0-31.2); Mean Corpuscular Volume 93.3 fl (81-99); Mean Platelet Volume 9.6 fl (7.4-10.4); Monocytes # 0.2 K/mm3 (0.1-1.0); Monocytes % 5.1 % (1.7-9.3); Neutrophils # 2.3 K/mm3 (1.8-7.8); Neutrophils % 59.6 % (37.0-80.0); Platelet Count 118 K/mm3 (142-424); Red Blood Count 4.51 M/mm3 (4.20-5.40); Red Cell Distribution Width 14.5 % (11.5-17.5); White Blood Count 3.9 K/mm3 (4.8-10.8)
[2019-11-05 14:35] LABS: Alanine Aminotransferase 29 U/L (12-78); Albumin Level 3.8 g/dl (3.5-5.0); Albumin/Globulin Ratio 1.1 (1.1-1.8); Alkaline Phosphatase 90 U/L (38-126); Anion Gap 11.5 mEq/L (5-15); Aspartate Amino Transferase 42 U/L (14-36); Bilirubin,Total 0.6 mg/dl (0.2-1.3); Blood Urea Nitrogen 14 mg/dl (7-17); Calcium 9.3 mg/dl (8.4-10.2); Carbon Dioxide 28 mmol/L (22.0-30.0); Chloride 101 mmol/L (98-107); Estimated Glomerular Filt Rate 74 ml/min (>60); GFR (African American) 89 ML/MIN (>60); Globulin 3.6 g/dL (1.3-3.2); Glucose 246 mg/dl (74-100); Potassium 4.5 mmoL/L (3.5-5.1); Sodium 136 mmol/L (136-145); Total Protein,Serum 7.4 g/dl (6.3-8.2)
[2019-11-05 15:03] LABS: Thyroid Stimulating Hormone 0.21 uIU/mL (0.465-4.68)
[2019-11-06 08:18] LABS: Folate 8.8 ng/mL (>3.0); Vitamin B12 452 pg/mL (232-1245)
== END ==
PROVIDERS: Visit Provider Internal Medicine Medical Oncology
DX: D72.819 Decreased white blood cell count, unspecified (principal)
CPT/HCPCS: 36415; 80053; 82607; 82746; 84443; 85025

== ENCOUNTER → 2019-11-15 10:34 | Outpatient (CLI) | payer MEDICAID, SELFPAY ==
--- NOTE | 2019-11-15 10:34 | MR_ITS ---
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 3-D MIP and myelographic images are also rendered and reviewed FINDINGS: Normal alignment. The spinal cord ends at the T12-L1 level. Mild degenerative disc disease T11-T12. There is increased T1 and T2 signal involving the posterior aspect of the T12 vertebral body consistent with lipid rich hemangioma or lipoma. T12-L1: Mild degenerative disc disease with mild disc desiccation. L1-L2: Unremarkable. L2-L3: Unremarkable. L3-L4: Mild bulging disc along with moderate facet and ligamentum hypertrophy with resultant moderate to severe bilateral lateral recess narrowing and mild to moderate bilateral foraminal narrowing slightly greater on the left. There is canal stenosis at this level with canal measuring 9 mm. This may be very slightly worse compared to the previous exam. L4-5: Mild facet ligamentum hypertrophy with mild bilateral lateral recess and foraminal narrowing. L5-S1: Minimal bulging disc. Complex left renal lesion is once again noted measuring approximately 1.7 cm now demonstrating increased T1 and T2 signal were as before there was increased T1 and decreased T2 signal possibly due to hemorrhagic cyst IMPRESSION: 1. L3-L4: Mild bulging disc along with moderate facet and ligamentum hypertrophy with resultant moderate to severe bilateral lateral recess narrowing and mild to moderate bilateral foraminal narrowing slightly greater on the left. There is canal stenosis at this level with canal measuring 9 mm. This may be very slightly worse compared to the previous exam. 2. L4-5: Mild facet ligamentum hypertrophy with mild bilateral lateral recess and foraminal narrowing. 3. L5-S1: Minimal bulging disc. 4. Complex left renal lesion is once again noted measuring approximately 1.7 cm now demonstrating increased T1 and T2 signal were as before there was increased T1 and decreased T2 signal possibly due to hemorrhagic cyst Dictated by: Sen Jin MD 11/16/2019 08:33 Electronically signed by Sen Jin MD in [place] 11/16/2019 08:33
== END ==
PROVIDERS: PCP Emergency Medicine; Visit Provider Emergency Medicine
DX: M54.9 Dorsalgia, unspecified (principal)
CPT/HCPCS: 72148; 76376

== ENCOUNTER 2019-12-20 13:33 | Emergency (ER) | payer MEDICAID, SELFPAY ==
--- NOTE | 2019-12-20 13:47 | PC.NURSE ---
TRIAGE DELAYED BECAUSE PT UNKOWINGLY WALKED OVER TO [facility] AFTER REGISTERING FOR THE ED. PT JUST NOW BROUGHT TO THE ED BY [facility] STAFF.
[2019-12-20 13:48] VITALS: BP 128/76; PULSE 84; RESP 18; TEMP 36.8; O2SAT 98; BMI 28.3
--- NOTE | 2019-12-20 13:54 | XR_ITS ---
PROCEDURE: XR SACRUM COCCYX MIN 2V Patient Age:59Y CLINICAL INDICATION: FALL ON FRIDAY pain in sacrum and tailbone COMPARISON: No exams were available for comparison FINDINGS: The sacrum and coccyx appear intact no fracture nor dislocation. No evident presacral swelling or swelling about the coccyx. Satisfactory alignment. SI joints and limited partial AP view of hips unremarkable. IMPRESSION: Sacrum and coccyx intact with no fracture evident. Dictated by: Froilan Erickson MD 12/20/2019 16:55 Electronically signed by Froilan Erickson MD in [place] 12/20/2019 16:55
--- NOTE | 2019-12-20 13:54 | XR_ITS ---
The PROCEDURE: XR RIBS LT MIN 3V W CXR1V Patient Age:59Y CLINICAL INDICATION: FALL ON FRIDAY Left chest and rib pain the the COMPARISON: No exams were available for comparison . + the FINDINGS: Multiple views of the left ribs were obtained. But no definitive acute fracture but there is slight cortical irregularity at the lateral left 4th rib but this + could reflect a old injury of. However point tenderness here cannot exclude a recent is very subtle fracture. Other ribs unremarkable. A frontal PA view of chest reveals the lungs to be well expanded and clear with no acute findings but vascularity appears normal to upper normal. Heart is upper normal size but previous anterior fusion lower C-spine the. IMPRESSION: No definitive acute rib fracture Slight cortical undulation lateral left 4th rib noted on a oblique view. Doubt acute fracture unless pronounced focal point tenderness to correlate and raise concern here.... Suspect more likely cortical contour variation or subtle residual from old healed fracture. Dictated by: Froilan Erickson MD 12/20/2019 16:28 Electronically signed by Froilan Erickson MD in [place] 12/20/2019 16:28
--- NOTE | 2019-12-20 15:01 | HMH.EDGENADL ---
ED Disposition Clinical Impression: Contusion Disposition: Home, Self-Care Condition on Discharge: Good Instructions: DI for Acute Pain -- Adult Prescriptions: Nabumetone 750 mg PO BID 10 Days #20 tab Transmission Status: Pending to [facility] #[id number] Referrals: Larry Bedolla MD [Primary Care Provider] - - Critical Care Critical Care Time: No Attestation: On 12/20/19, the high probability of a clinically significant, sudden or life threatening deterioration of the following system(s) required my full and direct attention, intervention and personal management. The time I documented below is in addition to time spent performing reported procedures but includes the following listed in this critical care notation. Medical Decision Making - Medical Records Medical records reviewed: Yes: I reviewed the patient's medical records. - Billy Inquiry Pt receiving controlled substance: No Vital Signs: 12/20/19 13:48 Temperature 98.3 F Temperature Source Oral Pulse Rate [Right Radial] 84 Respiratory Rate 18 Blood Pressure [Right Arm] 128/76 Blood Pressure Mean [Right Arm] 93 Blood Pressure Source [Right Arm] Automatic Cuff Blood Pressure Position [Right Arm] Sitting 02 Sat by Pulse Oximetry 98 Oxygen Delivery Method Room Air - Lab Data Lab results reviewed: Yes: I reviewed the patient's lab results. Orders (Tests/Meds): ORDERS Category Date Time Status XR ribs LT min 3V w CXR1V Stat Exams 12/20/19 13:54 Taken XR sacrum coccyx min 2V Stat Exams 12/20/19 13:54 Taken - Radiology Data #1 Image(s): Chest, Pelvis Preliminary Findings: Normal/NAD General Adult HPI - General Chief complaint: PAIN Stated complaint: AO [id number] passed out and hit tail bone,left s Time Seen by Provider: 12/20/19 15:01 Mode of Arrival: Ambulatory Limitations: No Limitations Description of Symptoms (Recalled from ER Triage Doc. by RN): PT C/O PAIN IN TAIL BONE AND LT RIB AFTER FALLING IN HER KITCHEN ON FRIDAY D/T PASSING OUT. - History of Present Illness HPI narrative: 59-year-old female presents the ED after a fall in her kitchen 48 hours ago. Apparently she was in her kitchen she states that she may have passed out and she fell and landed on her butt. Since then she is complaining about tailbone pain and she states that the pain is sharp and classifies it on a scale of 1-10 out of 6 she states that alleviating factors include rest and laying flat exacerbating factors include sitting. Otherwise patient denies any bowel or bladder incontinence. Patient denies any numbness or tingling in extremities. Patient denies any other symptoms. - Related Data Home Medications Medication Instructions Recorded Confirmed cyclobenzaprine 10 mg tablet 10 mg PO TIDP PRN 30 Days #90 tab 06/24/18 11/04/19 Aspirin [Low Dose Aspirin EC] 81 mg PO HS 06/14/19 11/04/19 Atorvastatin Calcium [Lipitor 40mg 40 mg PO HS 06/14/19 11/04/19 Tablet] Clopidogrel Bisulfate [Plavix 75mg 75 mg PO DAILY 06/14/19 11/04/19 Tab] Insulin Glargine,Hum.rec.anlog 15 unit SQ DAILY 06/14/19 11/04/19 [Basaglar Jose U-100] Blood-Glucose Meter [Blood Glucose See Rx Instructions .ROUTE 09/26/19 11/04/19 Meter] .MEDSUPPLY Previous Rx's Medication Instructions Recorded insulin lispro protamine-lispro 50 unit SQ BID #10 ml 05/31/19 100 unit/mL (75-25) subcutaneous susp lisinopril 10 mg tablet 10 mg PO DAILY #90 tab 07/08/19 ondansetron HCl 4 mg tablet 4 mg PO TID PRN 5 Days #14 tab 08/25/19 bisoprolol fumarate 10 mg tablet 10 mg PO BID #60 tab 09/10/19 gabapentin 600 mg tablet 600 mg PO TID #90 tab 09/10/19 ranolazine 1,000 mg 1,000 mg PO BID #60 tab 09/10/19 tablet,extended release,12 hr bupropion HCl 75 mg tablet 75 mg PO BID PRN #30 tab 09/21/19 metformin 1,000 mg tablet,extended 1,000 mg PO BID #180 tab 09/23/19 release 24hr blood sugar diagnostic See Rx Instructions .ROUTE 11/01/19 .MEDSUPPLY
[2019-12-20 15:19] VITALS: BP 128/76; PULSE 84; RESP 18; TEMP 36.8; O2SAT 98
== END 2019-12-20 15:20 | disposition home or self-care (01) ==
PROVIDERS: Emergency Provider Family Medicine; PCP Emergency Medicine
DX: R55 Syncope and collapse (principal); S20.212A Contusion of left front wall of thorax, initial encounter; S30.0XXA Contusion of lower back and pelvis, initial encounter; W18.39XA Other fall on same level, initial encounter; Y92.010 Kitchen of single-family (private) house as the place of occurrence of the external cause; E78.5 Hyperlipidemia, unspecified; F41.8 Other specified anxiety disorders; I25.10 Atherosclerotic heart disease of native coronary artery without angina pectoris; I25.2 Old myocardial infarction; I10 Essential (primary) hypertension; E11.9 Type 2 diabetes mellitus without complications; Z79.4 Long term (current) use of insulin; Z79.899 Other long term (current) drug therapy
CPT/HCPCS: 71101; 72220; 99282

== ENCOUNTER → 2019-12-24 06:21 | Outpatient (CLI) | payer MEDICAID, SELFPAY ==
--- NOTE | 2019-12-24 06:24 | NM_ITS ---
APPROVED REPORT Exam: Nuclear Stress Test Indication: CAD, 2 STENTS, TN, DM, FM HX, SOB, FATIGUE, ABN EKG Patient Location: Outpatient Stress Tech: Majo Ponce [place] Tech:Destiney Demarco ANJEL RT(R)(N) Ht: 5 ft 7 in Wt: 181 lbs Bra Size: 44B HR: 77 bpm BP: 144/83 mmHg BSA: 1.94 m2 BMI: 28.3 History: CAD, 2 STENTS, TN, DM, FM HX, SOB, FATIGUE, ABN EKG Procedure: Patient received a 0.4 mg of intravenous Lexiscan, resting heart rate 77 bpm, resting blood pressure 144/83 mmHg, with Lexiscan maximum heart rate achived was 82 bpm which is Less than 85 % of the maximum predicted heart rate and blood pressure was 148/78 mmHg. With Lexiscan, patient denied any complaint of chest pain. Electrocardiogram Resting electrocardiogram showed sinus rhythm, with Lexiscan there is less than 1.[address] segment depression noted from the baseline EKG. The EKG portion of the Lexiscan Myoview is nondiagnostic. Cardiac Stress and Resting SPECT Images: Cardiac Stress and Resting SPECT images were obtained using technetium 99m Myoview 30.2 mCi stress and 10.98 mCi at rest. Gated SPECT for analysis of segmental wall motion and calculation of the ejection fraction also done. Cardiac stress and resting SPECT images show uniform myocardial activity without segmental perfusion abnormality, computer derived ejection fraction 52% with no regional wall motion abnormality, right ventricle is normal size and contractility. Conclusion: 1. The EKG portion of the Lexiscan Myoview is nondiagnostic. 2. No scintigraphic evidence of reversible ischemia seen. Computer derived ejection fraction is 52% with no regional wall motion abnormality, right ventricle is normal size and contractility. 3. Normal Lexiscan Myoview study. Electronically signed by : Steven Bryant, 12/24/2019 13:49:04
--- NOTE | 2019-12-24 06:24 | CA_ITS ---
APPROVED REPORT Exam: Pharmacologic Technologist: Majo Serra, Ht: 5 ft 7 in Wt: 181 lbs BSA: 1.94 m2 Indications: SOA/Abn EKG Medical History Medical History: HTN, Diabetic ??? Insulin Medications: Lisinopril,,,,, Metformin,,,,, Hydrocodone,,,,, Trazadone,,,,, Gabapentin,,,,, Nabumetone,,,,, INSULIN,,,,, CloPIdogrel,,,,, BisOPROLOL,,,,, Ranolazine,,,,, CyclobenAPRINE,,,,, Aripiprazole,,,,, Cardiac Risk Factors: HTN, Diabetes (insulin), FHX of CAD Stress Test Details Test: LEXISCAN Reason for pharmacologic stress test: physical limitation. HR Resting HR: 75 bpm Max Heart Rate (APMHR): 163 bpm Max HR Achieved: 82 bpm Target HR (85% APMHR): 138 bpm % of APMHR: 50 BP Resting BP: 144.0/83 mmHg Max BP: 148/78 mmHg ECG Medications Administered Labetalol ( mg at ) Clinical Exercise duration: 01:53 min Highest Stage Achieved: Exercise capacity: 1.0 METs Stress ECG Conclusion no CP, positive for SOA during peak infusion resolving in recovery no arrhymias / ectopy less than 1.5mm ST depression images to follow Electronically signed by : Steven Bryant, 12/24/2019 13:46:21
== END ==
PROVIDERS: PCP Emergency Medicine; Visit Provider Internal Medicine Cardiovascular Disease
DX: R06.00 Dyspnea, unspecified (principal); I25.10 Atherosclerotic heart disease of native coronary artery without angina pectoris; I11.9 Hypertensive heart disease without heart failure; E11.9 Type 2 diabetes mellitus without complications; E78.5 Hyperlipidemia, unspecified; M25.512 Pain in left shoulder; Z79.4 Long term (current) use of insulin
CPT/HCPCS: 78452; 93017; A9502; J2785

== ENCOUNTER 2019-12-28 10:00 | Outpatient (RCR) | payer MEDICAID, SELFPAY | END 2019-12-28 10:05 | disposition home or self-care (01) | LOC: PT 10:00 | PROVIDERS: Visit Provider Orthopaedic Surgery | DX: M54.5 Low back pain (principal); M54.2 Cervicalgia | CPT/HCPCS: 97163 ==

== ENCOUNTER → 2020-01-03 10:02 | Outpatient (CLI) | payer MEDICAID, SELFPAY ==
[2020-01-05 12:10] LABS: Creatinine, Urine 145.1 mg/dL (Not Estab.); Microalbumin, Urine 11.1 ug/mL (Not Estab.)
== END ==
PROVIDERS: Visit Provider Emergency Medicine
DX: E11.9 Type 2 diabetes mellitus without complications (principal); Z79.4 Long term (current) use of insulin
CPT/HCPCS: 82043; 82570

== ENCOUNTER → 2020-01-19 10:58 | Outpatient (CLI) | payer MEDICAID, SELFPAY ==
[2020-01-19 16:01] LABS: Coronavirus 19 IgG Antibody Negative (Negative); Coronavirus 19 IgM Antibody Negative (Negative)
== END ==
PROVIDERS: Visit Provider Surgery
DX: Z01.818 Encounter for other preprocedural examination (principal)
CPT/HCPCS: 36415; 86328

== ENCOUNTER 2020-01-20 07:50 | Day surgery (SDC) | payer MEDICAID, SELFPAY ==
--- NOTE | 2020-01-18 14:45 | SUR.PREOP ---
01/18/2020 @ 5015--PHONE CALL MADE TO PATIENT. PATIENT UNDERSTANDS THAT LAB WORK AND COVID TESTING NEEDS TO BE COMPLETED @ 1100 ON 01/19/2020. PATIENT UNDERSTANDS IF LAB WORK AND COVID-19 TESTS ARE NOT COMPLETED BY 12PM ON THAT DATE, THE SURGERY SCHEDULED WILL BE CANCELLED AND RESCHEDULED FOR ANOTHER TIME.
[2020-01-19 12:38] VITALS: BMI 28.3
[2020-01-20 08:15] VITALS: BP 160/88; PULSE 100; RESP 20; TEMP 36.3; O2SAT 96
--- NOTE | 2020-01-20 08:30 | HMH.ANESCL ---
[facility] Anesthesia Checklist - Patient Identification Patient Identification: Arm Band, Verbal (Name & ) - Structural Data Admitted From: Home Planned Operative Procedure/s: egd Consent for Planned Operative Procedure(s) Verified: Yes Verified Documents: History and Physical - NPO Status Verified Time NPO: 00:00 - Chart Verification Results Verified: CBC, BMP - Additional verifications Patient : No Anesthesia Reactions: No Hx Blood Transfusions: No Blood Transfusion Reaction: No Cephalosporin Allergy: No Previous Colonoscopy: No - Cardiovascular Assessment Heart Sounds: S1 & S2 Pulse Strength: Baseline Pulse Rhythm: Regular Peripheral Edema: No - Airway Assessment C-Spine Mobility Assessed: Yes TMJ Mobility Assessed: Yes Dentition: Poor Dentition - Neurological Assessment Level of Consciousness: Awake, Alert, Appropriate Hx Seizures: No Numbness or tingling in extremities: No - Anesthesia Plan Anesthesia Risk discussed: Yes Anesthesia Plan: Verified ASA Class: III Anesthesia Type: MAC [facility] History I have reviewed the patient's past medical history: Yes Medical History: Reports:: Anxiety, Coronary Artery Disease, Depression, Diabetes Mellitus Type 2, Hyperlipidemia, Hypertension, Myocardial Infarction Denies:: Cancer, Diabetes Mellitus Type 1, Internal Pacemaker, MRSA, Seizures *Have you ever received a pneumonia vaccine?: No *Have you received a flu vaccine this season?: No Other Medical History: Denies: Blood Transfusion Reaction Anesthesia experience/problems:: none Laterality Cases: Bilateral: Other Other Surgeries: Yes: No Previous Surgery, Angiogram, Angioplasty, Cardiac Catheterization, Cardiac Surgery, Cholecystectomy, Colonoscopy, Coronary Stent, Dilation and Curettage, Other. No: Pacemaker Amputation: No Fractures: No - *Social History Educational Level: Completed High School Smoking Status: Never smoker # Packs/Day (cigarettes): 1 Alcohol Intake: never Alcohol Intake Frequency:: other Substance Use Type: denies use *Occupational Status:: unemployed Housing: house Household Members: none *Travel in the last 8 weeks: None - Psychiatric History Pschychiatric History:: Reports:: Anxiety, Depression Family Hx:: Cancer, Diabetes
[2020-01-20 08:32] LABS: POC Glucose,Bedside 193 (70-110)
[2020-01-20 09:15] VITALS: BP 119/70; PULSE 77; RESP 15; TEMP 36.3; O2SAT 93
--- NOTE | 2020-01-20 09:18 | HMH.SCOPE ---
- Procedure: Date: 01/20/20 Procedure Performed:: Esophagogastroduodenoscopy with biopsy Colonoscopy aborted secondary to exceedingly poor bowel preparation (rectal vault full of formed stool) Indications:: Screening colonoscopy Abnormal pelvic CT (rectal wall thickening versus nondistention) Nausea Performing Provider:: Min Quiñonez MD Referring Provider:: . Sedation:: Monitored anesthesia care Procedure:: After informed consent was obtained the patient was taken to the endoscopy suite. Sedation ensued after the patient was transferred to the left lateral decubitus position. Pulse, blood pressure, and oxygen saturation were monitored throughout the procedure. The endoscope was advanced beyond the duodenal bulb. Retroflexion within the gastric lumen was accomplished. The gastroscope was carefully removed. Digital rectal exam was then completed. The patient had firm formed stool throughout the rectal vault and anal canal. No obvious mass lesions were noted. Secondary to obvious inadequate bowel preparation colonoscopy efforts were aborted. She was transferred to recovery in stable condition. Please see findings and specimens below for detail. Findings:: Gastroesophageal junction at 39 cm Streaking gastritis Focal severe inflammation of mid gastric body Exceedingly poor bowel preparation (rectal vault/anal canal with large amount of firm formed stool) Specimens:: Biopsy of focal severe inflammation of mid gastric body Antral biopsy Recommendations:: Follow-up pathology Colonoscopy as soon as possible with extended bowel preparation Complications:: Exceedingly poor bowel preparation (colonoscopy efforts aborted) Estimated blood obtained (mL): 1
[2020-01-20 09:25] VITALS: BP 143/80; PULSE 83; RESP 15; O2SAT 95
[2020-01-20 09:35] VITALS: BP 144/84; PULSE 89; RESP 16; O2SAT 95
[2020-01-20 09:45] VITALS: BP 154/92; PULSE 88; RESP 16; O2SAT 96
== END 2020-01-20 09:45 | disposition home or self-care (01) ==
LOC: OUTP 07:51
PROVIDERS: PCP Emergency Medicine; Visit Provider Surgery
PROC: 0DJ08ZZ Inspection of Upper Intestinal Tract, Via Natural or Artificial Opening Endoscopic (ICD-10-PCS; CPT 43235; principal; 2020-01-20 09:00)
PROC: 0DJ08ZZ Inspection of Upper Intestinal Tract, Via Natural or Artificial Opening Endoscopic (ICD-10-PCS; CPT 43235; 2020-01-20 09:00)
DX: Z12.11 Encounter for screening for malignant neoplasm of colon (principal); K29.60 Other gastritis without bleeding; Z91.19 Patient's noncompliance with other medical treatment and regimen; K31.89 Other diseases of stomach and duodenum; R93.3 Abnormal findings on diagnostic imaging of other parts of digestive tract; E11.9 Type 2 diabetes mellitus without complications; Z79.899 Other long term (current) drug therapy; Z79.82 Long term (current) use of aspirin; Z79.4 Long term (current) use of insulin; I25.10 Atherosclerotic heart disease of native coronary artery without angina pectoris; F41.9 Anxiety disorder, unspecified; F32.9 Major depressive disorder, single episode, unspecified
CPT/HCPCS: 43239; 82962

== ENCOUNTER → 2020-02-09 08:04 | Outpatient (CLI) | payer MEDICAID, SELFPAY ==
[2020-02-09 09:12] LABS: Coronavirus 19 IgG Antibody Negative (Negative); Coronavirus 19 IgM Antibody Negative (Negative)
== END ==
PROVIDERS: Visit Provider Surgery
DX: Z01.818 Encounter for other preprocedural examination (principal)
CPT/HCPCS: 36415; 86328

== ENCOUNTER 2020-02-10 07:06 | Day surgery (SDC) | payer MEDICAID, SELFPAY ==
[2020-02-08 13:42] VITALS: BMI 28.3
[2020-02-10 07:29] VITALS: BP 132/76; PULSE 73; RESP 20; TEMP 36.1; O2SAT 97
[2020-02-10 07:43] LABS: POC Glucose,Bedside 217 (70-110)
--- NOTE | 2020-02-10 08:03 | P.PN_ITS ---
[facility] Anesthesia Checklist - Patient Identification Patient Identification: Arm Band, Verbal (Name & ) - Structural Data Admitted From: Home Planned Operative Procedure/s: colon Consent for Planned Operative Procedure(s) Verified: Yes Verified Documents: History and Physical - NPO Status Verified Time NPO: 00:00 - Chart Verification Results Verified: CBC, BMP - Additional verifications Patient : No Anesthesia Reactions: No Hx Blood Transfusions: No Blood Transfusion Reaction: No Cephalosporin Allergy: No Previous Colonoscopy: Yes - Cardiovascular Assessment Heart Sounds: S1 & S2 Pulse Strength: Baseline Pulse Rhythm: Regular Peripheral Edema: No - Airway Assessment C-Spine Mobility Assessed: Yes TMJ Mobility Assessed: Yes Dentition: Good Dentition - Neurological Assessment Level of Consciousness: Awake, Alert, Appropriate Hx Seizures: No Numbness or tingling in extremities: No - Anesthesia Plan Anesthesia Risk discussed: Yes Anesthesia Plan: Verified ASA Class: III Anesthesia Type: MAC [facility] History I have reviewed the patient's past medical history: Yes Medical History: Reports:: Anxiety, Coronary Artery Disease, Depression, Diabetes Mellitus Type 2, Hyperlipidemia, Hypertension, Myocardial Infarction Denies:: Cancer, Diabetes Mellitus Type 1, Internal Pacemaker, MRSA, Seizures *Have you ever received a pneumonia vaccine?: Yes *Have you received a flu vaccine this season?: No Other Medical History: Denies: Blood Transfusion Reaction Anesthesia experience/problems:: none Laterality Cases: Bilateral: Other Other Surgeries: Yes: No Previous Surgery, Angiogram, Angioplasty, Cardiac Catheterization, Cardiac Surgery, Cholecystectomy, Colonoscopy, Coronary Stent, Dilation and Curettage, EGD, Other. No: Pacemaker Amputation: No Fractures: No - *Social History Last grade of school completed: High school graduate Smoking Status: Never smoker # Packs/Day (cigarettes): 1 Alcohol Intake: never Alcohol Intake Frequency:: other Substance Use Type: denies use *Occupational Status:: unemployed Housing: house Household Members: none *Travel in the last 8 weeks: None - Psychiatric History Pschychiatric History:: Reports:: Anxiety, Depression Family Hx:: Cancer, Diabetes
[2020-02-10 08:16] VITALS: O2SAT 97
[2020-02-10 09:06] VITALS: BP 147/97; PULSE 79; RESP 18; TEMP 36.3; O2SAT 94
--- NOTE | 2020-02-10 09:06 | HMH.SCOPE ---
- Procedure: Date: 02/10/20 Procedure Performed:: Colonoscopy with polypectomy by means other than snare Indications:: Abnormal CT of pelvis (anal/rectal thickening) Screening colonoscopy Recent aborted colonoscopy secondary to exceedingly poor bowel preparation Performing Provider:: Min Quiñonez MD Referring Provider:: . Sedation:: Monitored anesthesia care Procedure:: After informed consent was obtained the patient was taken to the endoscopy suite. Sedation ensued after the patient was transferred to the left lateral decubitus position. Pulse, blood pressure, and oxygen saturation were monitored throughout the procedure. Digital rectal exam revealed no significant abnormality. The colonoscope was placed in position. The entire colon was evaluated. The colonoscope was carefully removed and the patient was transferred to recovery in stable condition. Please see findings and specimens below for detail. Findings:: Bowel preparation moderate (dramatically improved versus prior evaluation) Hemorrhoidal tag/cushions Fairly severe tortuosity of sigmoid colon Severe lack of relaxation throughout colon Adjacent polyps of mid transverse colon Specimens:: Adjacent sessile polyps of the mid transverse colon Recommendations:: Timing of repeat colonoscopy is pending pathology but will likely be between 2-3 years secondary to moderate bowel preparation, severe lack of relaxation, and sigmoid tortuosity. Complications:: No immediate Estimated blood obtained (mL): 1
[2020-02-10 09:16] VITALS: BP 80/53; PULSE 62; RESP 18; O2SAT 95
[2020-02-10 09:26] VITALS: BP 96/64; PULSE 84; RESP 18; O2SAT 95
[2020-02-10 09:54] VITALS: BP 95/56; PULSE 86; RESP 18; O2SAT 97
== END 2020-02-10 09:54 | disposition home or self-care (01) ==
LOC: OUTP 07:09
PROVIDERS: PCP Emergency Medicine; Visit Provider Surgery
PROC: 0DJD8ZZ Inspection of Lower Intestinal Tract, Via Natural or Artificial Opening Endoscopic (ICD-10-PCS; CPT 45380; principal; 2020-02-10 08:30)
DX: Z12.11 Encounter for screening for malignant neoplasm of colon (principal); K64.9 Unspecified hemorrhoids; Q43.8 Other specified congenital malformations of intestine; K63.5 Polyp of colon; K58.9 Irritable bowel syndrome, unspecified; F41.9 Anxiety disorder, unspecified; I25.10 Atherosclerotic heart disease of native coronary artery without angina pectoris; E11.9 Type 2 diabetes mellitus without complications; I10 Essential (primary) hypertension; E78.5 Hyperlipidemia, unspecified; I25.2 Old myocardial infarction
CPT/HCPCS: 45380; 82962

== ENCOUNTER → 2020-03-22 08:13 | Outpatient (CLI) | payer MEDICAID, SELFPAY ==
[2020-03-23 08:42] LABS: Alanine Aminotransferase 31 U/L (12-78); Albumin Level 3.4 g/dl (3.5-5.0); Albumin/Globulin Ratio 0.9 (1.1-1.8); Alkaline Phosphatase 137 U/L (38-126); Anion Gap 10.9 mEq/L (5-15); Aspartate Amino Transferase 38 U/L (14-36); Bilirubin,Total 0.5 mg/dl (0.2-1.3); Blood Urea Nitrogen 11 mg/dl (7-17); Calcium 9.2 mg/dl (8.4-10.2); Carbon Dioxide 32 mmol/L (22.0-30.0); Chloride 100 mmol/L (98-107); Estimated Glomerular Filt Rate 74 ml/min (>60); GFR (African American) 89 ML/MIN (>60); Globulin 3.6 g/dL (1.3-3.2); Glucose 334 mg/dl (74-100); Potassium 4.9 mmoL/L (3.5-5.1); Sodium 138 mmol/L (136-145)
[2020-03-23 08:57] LABS: White Blood Count 4.2 K/mm3 (4.8-10.8)
[2020-03-23 08:58] LABS: Hematocrit 47.2 % (37.0-47.0); Hemoglobin 14.9 g/dL (12.2-16.2); Mean Corpuscular HGB Conc 31.6 g/dL (31.8-35.4); Mean Corpuscular Hemoglobin 32.1 pg (27.0-31.2); Mean Corpuscular Volume 101.4 fl (81-99); Mean Platelet Volume 10.3 fl (7.4-10.4); Platelet Count 138 K/mm3 (142-424); Red Blood Count 4.65 M/mm3 (4.20-5.40); Red Cell Distribution Width 13.9 % (11.5-17.5)
[2020-03-23 08:59] LABS: Basophils % 0.4 % (0.1-2.0); Eosinophils % 1.8 % (0.1-12.0); Lymphocytes # 1.3 K/mm3 (0.7-4.5); Lymphocytes % 29.9 % (10-50); Monocytes % 4.4 % (1.7-9.3); Neutrophils # 2.6 K/mm3 (1.8-7.8); Neutrophils % 63.5 % (37.0-80.0)
[2020-03-23 09:00] LABS: Eosinophils # 0.1 K/mm3 (0.0-0.4); Monocytes # 0.2 K/mm3 (0.1-1.0)
[2020-03-23 10:44] LABS: Hemoglobin A1C 12.3 % (4.0-6.0)
== END ==
PROVIDERS: Visit Provider Emergency Medicine
DX: E11.65 Type 2 diabetes mellitus with hyperglycemia (principal); Z79.4 Long term (current) use of insulin
CPT/HCPCS: 80053; 83036; 85025

== ENCOUNTER 2020-04-27 14:00 | Emergency (ER) | payer MEDICAID, SELFPAY ==
[2020-04-27 14:18] VITALS: BP 170/78; PULSE 85; RESP 14; TEMP 37; O2SAT 98; BMI 29.9
--- NOTE | 2020-04-27 14:31 | HMH.EDUTC ---
[facility] [place] Impression: Gastroenteritis Disposition: Home, Self-Care Condition on Discharge: Good Instructions: Viral Gastroenteritis Additional Instructions: Drink plenty of fluids. Take tylenol or ibuprofen for pain or fever. Take the medications as directed. Follow up with your regular doctor. GO TO THE ER FOR ANY WORSENING SYMPTOMS Prescriptions: Ondansetron [Zofran 4mg ODT] 4 mg PO Q8HP PRN #20 tab.rapdis PRN Reason: Nausea Transmission Status: Pending to [facility] #[id number] Referrals: Larry Bedolla MD [Primary Care Provider] - Forms: Work/School Release Time of Disposition: 14:44 Medical Decision Making - Medical Records Medical records reviewed: No: I reviewed the patient's medical records. - Billy Inquiry Pt receiving controlled substance: No Vital Signs: 04/27/20 14:18 Temperature 98.6 F Temperature Source Oral Pulse Rate [Right Brachial] 85 Respiratory Rate 14 Blood Pressure [Right Arm] 170/78 H Blood Pressure Mean [Right Arm] 108 Blood Pressure Source [Right Arm] Automatic Cuff Blood Pressure Position [Right Arm] Sitting 02 Sat by Pulse Oximetry 98 Oxygen Delivery Method Room Air [facility] [place] - General Stated complaint: vomiting diarrhea Time Seen by Provider: 04/27/20 14:32 Mode of Arrival: Ambulatory Source of Information: Patient Limitations: No Limitations Description of Symptoms (Recalled from Triage Doc. by RN): PATIENT C/O VOMITING AND DIARRHEA X 2 DAYS HEENT Symptoms (Recalled from RN notes): No Resp Symptoms (Recalled from RN notes): No Skin Symptoms (Recalled from RN notes): No MS Symptoms (Recalled from RN notes): No Functional Status (Recalled from RN notes): WNL - History of Present Illness Provider Complaint: She c/o n/v/d since yesterday. She denies any fever, but she has chilled some. She denies any known contact with COVID-19. - Related Data Home Medications Medication Instructions Recorded Confirmed cyclobenzaprine 10 mg tablet 10 mg PO TIDP PRN 30 Days #90 tab 06/24/18 04/10/20 Aspirin [Low Dose Aspirin EC] 81 mg PO HS 06/14/19 04/10/20 Atorvastatin Calcium [Lipitor 40mg 40 mg PO HS 11/18/19 09/14/20 Tablet*] insulin lispro protamine-lispro 62 unit SQ BID ml 01/03/20 04/10/20 100 unit/mL (75-25) subcutaneous susp Isosorbide Mononitrate [Imdur 60mg 90 mg PO DAILY 01/19/20 04/10/20 ER tablet] Nabumetone 750 mg PO BID 01/19/20 04/10/20 Previous Rx's Medication Instructions Recorded lisinopril 10 mg tablet 10 mg PO DAILY #90 tab 12/28/19 ondansetron HCl 4 mg tablet 4 mg PO Q6H PRN #30 tab 02/21/20 bisoprolol fumarate 10 mg tablet 10 mg PO BID #60 tab 02/23/20 clopidogrel 75 mg tablet 75 mg PO DAILY #30 tab 02/23/20 ranolazine 1,000 mg 1,000 mg PO BID #60 tab 02/23/20 tablet,extended release,12 hr gabapentin 600 mg tablet 600 mg PO TID 30 Days #90 tab 03/22/20 hydrocodone 5 mg-acetaminophen 325 1 tab PO TID PRN #90 tab 03/22/20 mg tablet insulin glargine 100 unit/mL (3 20 unit SQ BID #15 ml 03/24/20 mL) subcutaneous pen pen needle, diabetic 31 gauge x See Rx Instructions .ROUTE 03/24/2012/10 .MEDSUPPLY #90 each aripiprazole 20 mg tablet 20 mg PO DAILY #30 tab 04/10/20 trazodone 50 mg tablet 50 mg PO .COMPLEX #60 tab 04/10/20 vortioxetine 10 mg tablet 10 mg PO DAILY #30 tab 04/10/20 Ondansetron [Zofran 4mg ODT] 4 mg PO Q8HP PRN #20 tab.rapdis 04/27/20 Allergies Allergy/AdvReac Type Severity Reaction Status Date / Time No Known Allergies Allergy Verified 04/10/20 10:27 - Worker's Comp Is this a Worker's Comp case?: No [facility] History - Hepatitis A Screen Drug use history?: No High risk sexual behaviors?: No History of sexually transmitted infection?: No Currently employed?: No Childcare worker?: No Do you have indoor plumbing?: Yes Do you have electricity?: Yes Attestation statement:: This patient has been screened for Hepatitis A risk factors. I have r
[2020-04-27 14:52] VITALS: BP 170/78; PULSE 85; RESP 14; TEMP 37; O2SAT 98
== END 2020-04-27 14:55 | disposition home or self-care (01) ==
PROVIDERS: Emergency Provider Nurse Practitioner Family; PCP Emergency Medicine
DX: K52.9 Noninfective gastroenteritis and colitis, unspecified (principal); I10 Essential (primary) hypertension; E11.9 Type 2 diabetes mellitus without complications; I25.2 Old myocardial infarction; F41.8 Other specified anxiety disorders; E78.5 Hyperlipidemia, unspecified; Z79.899 Other long term (current) drug therapy; Z79.4 Long term (current) use of insulin
CPT/HCPCS: 99201

== ENCOUNTER 2020-05-18 10:04 | Emergency (ER) | payer MEDICAID, SELFPAY ==
[2020-05-18 10:10] VITALS: BP 153/93; PULSE 92; RESP 18; TEMP 36.6; O2SAT 97; BMI 30.2
--- NOTE | 2020-05-18 10:20 | HMH.EDUTC ---
[facility] [place] Clinical Impression: Strep throat Disposition: Home, Self-Care Condition on Discharge: Good Instructions: Strep Throat, DI for Strep Throat, Amoxicillin Additional Instructions: *Monitor Temp, Over the counter Motrin or Tylenol as directed/as needed Tylenol every 4 hours and Motrin every 6 hours (as long as your family doctor has told you that you can take it) for fever or pain. and straight to ER if unable to lower temp less than 101.0 after medication given *Warm salt water gargles may help to soothe the throat *Throat Lozenges *Warm fluids like tea with honey may help to soothe the throat *Sleep elevated *Humidifier/Vaporizer Follow up IMMEDIATELY for new or worsening symptoms or no Noticeable improvement over the next 48-72 hours. 911 for difficulty breathing or swallowing *If you did not take Penicillin shot or was unable to, start taking antibiotic immediately and make sure that you take it for the FULL length of time although you should start to feel better in 24-48 hours *change toothbrush and toothpaste 24-48 hours after starting to take antibiotics so you do not reinfect yourself Monitor Temp. Tylenol and/or Ibuprofen as needed. ER if fever is no less than 101 despite alternating Tylenol and Ibuprofen * Encourage fluids, water, Gatorade, powerade, pedialyte if /toddler/or child *Cold fluids, popsicles and ice cream may feel good on his throat Prescriptions: Amoxicillin [Amoxicillin 500mg Cap] 500 mg PO BID 10 Days #20 cap Transmission Status: Pending to [facility] #[id number] Fluticasone Propionate [Flonase 50mcg nasal spray 16gm] 1 spr NS DAILY #1 bottle Transmission Status: Pending to [facility] #[id number] Referrals: Larry Bedolla MD [Primary Care Provider] - As needed Time of Disposition: 10:28 Medical Decision Making - Billy Inquiry Pt receiving controlled substance: No Billy was queried for this patient: No Vital Signs: 05/18/20 10:10 Temperature 97.9 F Temperature Source Oral Pulse Rate [Radial] 92 H Respiratory Rate 18 Blood Pressure [Right Arm] 153/93 H Blood Pressure Mean [Right Arm] 113 Blood Pressure Source [Right Arm] Automatic Cuff Blood Pressure Position [Right Arm] Sitting 02 Sat by Pulse Oximetry 97 Oxygen Delivery Method Room Air - Lab Data Lab results reviewed: Yes: I reviewed the patient's lab results. Lab Results 05/18/20 10:13: Strep Scn Rapid Clinic Positive A [facility] [place] HPI - General Stated complaint: sore throat, fever, cough Time Seen by Provider: 05/18/20 10:21 Mode of Arrival: Ambulatory Source of Information: Patient Limitations: No Limitations Description of Symptoms (Recalled from Triage Doc. by RN): SORE THROAT, COUGH, FEVER HEENT Symptoms (Recalled from RN notes): Yes Resp Symptoms (Recalled from RN notes): No Skin Symptoms (Recalled from RN notes): No MS Symptoms (Recalled from RN notes): No Functional Status (Recalled from RN notes): WNL - History of Present Illness Provider Complaint: Patient states that she has been having sore throat and fever for the last couple of days States that today she woke up and it was still hurting when she would swallow and didnt feel well so she come in to get checked - Related Data Home Medications Medication Instructions Recorded Confirmed cyclobenzaprine 10 mg tablet 10 mg PO TIDP PRN 30 Days #90 tab 06/24/18 05/15/20 Aspirin [Low Dose Aspirin EC] 81 mg PO HS 06/14/19 05/15/20 Atorvastatin Calcium [Lipitor 40mg 40 mg PO HS 06/14/19 05/15/20 Tablet*] insulin lispro protamine-lispro 62 unit SQ BID ml 01/03/20 05/15/20 100 unit/mL (75-25) subcutaneous susp Isosorbide Mononitrate [Imdur 60mg 90 mg PO DAILY 01/19/20 05/15/20 ER tablet] Nabumetone 750 mg PO BID 01/19/20 05/15/20 Previous Rx's Medication Instructions Recorded lisinopril 10 mg tablet 10 mg PO DAILY #90 tab 12/28/19 ondansetron HCl 4 mg tablet 4 mg PO Q6H PRN #30 tab 02/21/20 bi
[2020-05-18 10:26] LABS: UTC Strep Screen (Rapid) Positive (Negative)
[2020-05-18 10:47] VITALS: BP 153/93; PULSE 92; RESP 18; TEMP 36.6; O2SAT 97
== END 2020-05-18 10:48 | disposition home or self-care (01) ==
PROVIDERS: Emergency Provider Nurse Practitioner; PCP Emergency Medicine
DX: J02.0 Streptococcal pharyngitis (principal); F41.8 Other specified anxiety disorders; E78.5 Hyperlipidemia, unspecified; I10 Essential (primary) hypertension
CPT/HCPCS: 87880; 99201

== ENCOUNTER 2020-05-29 09:09 | Emergency (ER) | payer MEDICAID, SELFPAY ==
[2020-05-29 09:20] VITALS: BP 157/96; PULSE 99; RESP 14; TEMP 36.8; O2SAT 100; BMI 32.1
--- NOTE | 2020-05-29 09:26 | HMH.EDUTC ---
[facility] [place] Clinical Impression: Viral syndrome Pharyngitis Qualifiers: Pharyngitis/tonsillitis etiology: unspecified etiology Qualified Code(s): J02.9 - Acute pharyngitis, unspecified Disposition: Home, Self-Care Condition on Discharge: Good Instructions: DI for Viral Syndrome, Preventing the Spread of Coronavirus Discharge Instructions Additional Instructions: Drink plenty of fluids. Take tylenol or ibuprofen for pain or fever. Take the medications as directed. Follow up with your regular doctor. GO TO THE ER FOR ANY WORSENING SYMPTOMS Prescriptions: Ondansetron [Zofran 4mg ODT] 4 mg PO Q8HP PRN #10 tab.rapdis PRN Reason: Nausea Transmission Status: Received by [facility] # Azithromycin [Z-Adonis 250mg Tab*] 250 mg PO UD DOSE PK #6 tab Transmission Status: Received by [facility] # Referrals: Larry Bedolla MD [Primary Care Provider] - Forms: Work/School Release Time of Disposition: 09:34 Medical Decision Making - Medical Records Medical records reviewed: No: I reviewed the patient's medical records. - Billy Inquiry Pt receiving controlled substance: No Vital Signs: 05/29/20 09:20 05/29/20 09:46 Temperature 98.3 F 98.3 F Temperature Source Oral Pulse Rate 99 H Pulse Rate [Right Brachial] 99 H Respiratory Rate 14 14 Blood Pressure 157/96 H Blood Pressure [Right Arm] 157/96 H Blood Pressure Mean [Right Arm] 116 Blood Pressure Source [Right Arm] Automatic Cuff Blood Pressure Position [Right Arm] Sitting 02 Sat by Pulse Oximetry 100 Oxygen Delivery Method Room Air - Lab Data Lab Results 05/29/20 09:25: Influenza Type A Ag Negative, Influenza Type B Ag Negative 05/29/20 09:25: Strep Scn Rapid Clinic Negative Orders (Tests/Meds): ORDERS Category Date Time Status Covid-19 Nasal PCR ([facility]) Routine Lab 05/29/20 09:50 Received Strep Screen Confirmation Stat Micro 05/29/20 09:25 Received [facility] [facility] [place] - General Stated complaint: cough, sore throat Time Seen by Provider: 05/29/20 09:28 Mode of Arrival: Ambulatory Source of Information: Patient Limitations: No Limitations Description of Symptoms (Recalled from Triage Doc. by RN): PATIENT C/O FEVER, COUGH, SORE THROAT, AND VOMITING SINCE FRIDAY NIGHT HEENT Symptoms (Recalled from RN notes): Yes Resp Symptoms (Recalled from RN notes): Yes Skin Symptoms (Recalled from RN notes): No MS Symptoms (Recalled from RN notes): No Functional Status (Recalled from RN notes): WNL - History of Present Illness Provider Complaint: She c/o 2 days of worsening sore throat, nonproductive cough, feeling bad, n/v. She denies any known exposure to covid. - Related Data Home Medications Medication Instructions Recorded Confirmed cyclobenzaprine 10 mg tablet 10 mg PO TIDP PRN 30 Days #90 tab 06/24/18 05/15/20 Aspirin [Low Dose Aspirin EC] 81 mg PO HS 06/14/19 05/15/20 Atorvastatin Calcium [Lipitor 40mg 40 mg PO HS 06/14/19 05/15/20 Tablet*] insulin lispro protamine-lispro 62 unit SQ BID ml 01/03/20 05/15/20 100 unit/mL (75-25) subcutaneous susp Isosorbide Mononitrate [Imdur 60mg 90 mg PO DAILY 01/19/20 05/15/20 ER tablet] Nabumetone 750 mg PO BID 01/19/20 05/15/20 Previous Rx's Medication Instructions Recorded lisinopril 10 mg tablet 10 mg PO DAILY #90 tab 12/28/19 ondansetron HCl 4 mg tablet 4 mg PO Q6H PRN #30 tab 02/21/20 bisoprolol fumarate 10 mg tablet 10 mg PO BID #60 tab 02/23/20 clopidogrel 75 mg tablet 75 mg PO DAILY #30 tab 02/23/20 ranolazine 1,000 mg 1,000 mg PO BID #60 tab 02/23/20 tablet,extended release,12 hr pen needle, diabetic 31 gauge x See Rx Instructions .ROUTE 03/24/2012/10 .MEDSUPPLY #90 each aripiprazole 20 mg tablet 20 mg PO DAILY #30 tab 04/10/20 trazodone 50 mg tablet 50 mg PO .COMPLEX #60 tab 04/10/20 vortioxetine 10 mg tablet 10 mg PO DAILY #30 tab 04/10/20 gabapentin 600 mg tablet 600 mg PO TID 30 Days #90 tab 05/15/20
[2020-05-29 09:29] LABS: UTC Strep Screen (Rapid) Negative (Negative)
[2020-05-29 09:46] VITALS: BP 157/96; PULSE 99; RESP 14; TEMP 36.8; O2SAT 100
[2020-05-29 09:47] LABS: UTC Influenza A Antigen Negative (Negative)
[2020-05-29 09:48] LABS: UTC Influenza B Antigen Negative (Negative)
== END 2020-05-29 09:53 | disposition home or self-care (01) ==
PROVIDERS: Emergency Provider Nurse Practitioner Family; PCP Emergency Medicine
DX: Z20.828 Contact with and (suspected) exposure to other viral communicable diseases (principal); J20.9 Acute bronchitis, unspecified; B34.9 Viral infection, unspecified; I25.10 Atherosclerotic heart disease of native coronary artery without angina pectoris; E11.9 Type 2 diabetes mellitus without complications; I25.2 Old myocardial infarction; I10 Essential (primary) hypertension; E78.5 Hyperlipidemia, unspecified; F41.8 Other specified anxiety disorders
CPT/HCPCS: 87804; 87880; 99202; U0003

== ENCOUNTER 2020-06-01 06:25 | Emergency (ER) | payer MEDICAID, SELFPAY ==
[2020-06-01 06:26] VITALS: BP 187/104; PULSE 87; RESP 16; TEMP 36.7; O2SAT 97; BMI 29.8
--- NOTE | 2020-06-01 06:47 | XR_ITS ---
PROCEDURE: XR PELVIS 1-2V CLINICAL INDICATION: fall Posttraumatic pain COMPARISON: No exams were available for comparison TECHNIQUE: XR Pelvis AP View FINDINGS: There is an oblique lucency at the intertrochanteric region of the right femur. This could be related overlying skin fold artifact. Cannot exclude the possibility of a fracture at this area. Please correlate with clinical findings. If there is pain in this area them dedicated hip films may provide further evaluation. No other significant anomaly. There are mild osteoarthritic changes of the left hip. IMPRESSION: Possible skin fold artifact in the right intertrochanteric region of the hip. If there is pain in this region then, would recommend dedicated hip films for further evaluation to exclude a fracture. Dictated by: Sen Jin MD 06/01/2020 08:36 Sen Jin MD in [place] 06/01/2020 08:36
--- NOTE | 2020-06-01 06:47 | CT_ITS ---
PROCEDURE: CT CHEST WO CON CLINICAL INDICATION: RUQ pain with a fall Right-sided pain, Blunt trauma with injury and pain, contusion/abrasion or hematoma following injury COMPARISON: No exams were available for comparison TECHNIQUE: Axial images obtained with sagittal and coronal reformats. All CT scans at the facility use one or more dose reduction, viz: automated exposure control, ma/kV adjustment per patient size (including targeted exams where dose is matched to indication, i.e. head), or iterative reconstruction technique. FINDINGS: Thyroid gland is enlarged bilaterally left more so than right with heterogeneous density. Mediastinal and vascular evaluation is very limited without IV contrast. There are coronary artery calcifications. No obvious mediastinal hematoma or mass. No lobar consolidation or collapse. No pulmonary contusion apparent. There is evidence of old granulomatous disease and there is minimal atelectatic change in the right lung base. There is a nondisplaced fracture involving the right 8th rib anteriorly. There has been prior anterior cervical disc fusion at C6-C7. Hemangioma involvement noted at T7 IMPRESSION: 1. Nondisplaced fracture right 8th rib. 2. Other nonacute findings as described above. 3. Limited mediastinal and vascular evaluation without IV contrast. Dictated by: Sen Jin MD 06/01/2020 08:31 Sen Jin MD in [facility] 06/01/2020 08:31
--- NOTE | 2020-06-01 06:47 | CT_ITS ---
PROCEDURE: CT ABDOMEN W CON CLINICAL HISTORY: RUQ pain with a fall COMPARISON: No exams were available for comparison TECHNIQUE: Axial images obtained with sagittal and coronal reformats. All CT scans at the facility use one or more dose reduction, viz: automated exposure control, ma/kV adjustment per patient size (including targeted exams where dose is matched to indication, i.e. head), or iterative reconstruction technique. FINDINGS: There is a nondisplaced fracture involving the right 8th rib anteriorly. No evidence hepatic laceration or hematoma. There is splenomegaly at 15 cm. Scattered small nodes are present in the celiac region and portal area. There is a small left renal cyst. Bilateral renal cortical scarring is noted. The adrenal glands and pancreas are unremarkable. There are post cholecystectomy changes. No intestinal obstruction or free air. IMPRESSION: Nondisplaced right 8th rib fracture. Splenomegaly Dictated by: Sen Jin MD 06/01/2020 08:34 Sen Jin MD in [facility] 06/01/2020 08:34
--- NOTE | 2020-06-01 07:03 | HMH.EDFALL ---
ED Disposition Condition on Discharge: Good - Critical Care Critical Care Time: No <Larry Bedolla - Last Filed: 06/01/20 09:48> <Nehemiah Benoit - Last Filed: 06/01/20 10:45> Clinical Impression: Rib fracture Qualifiers: Encounter type: initial encounter Rib fracture type: single rib Fracture type: closed Laterality: right Qualified Code(s): S22.31XA - Fracture of one rib, right side, initial encounter for closed fracture Abdominal wall contusion Qualifiers: Encounter type: initial encounter Qualified Code(s): S30.1XXA - Contusion of abdominal wall, initial encounter Fall Qualifiers: Encounter type: initial encounter Qualified Code(s): W19.XXXA - Unspecified fall, initial encounter Disposition: Home, Self-Care Instructions: DI for Rib Fracture Additional Instructions: see pcp friday or friday Referrals: Larry Bedolla MD [Primary Care Provider] - 3 days Attestation: On 06/01/20, the high probability of a clinically significant, sudden or life threatening deterioration of the following system(s) required my full and direct attention, intervention and personal management. The time I documented below is in addition to time spent performing reported procedures but includes the following listed in this critical care notation. Medical Decision Making - Medical Records Medical records reviewed: Yes: I reviewed the patient's medical records. - Billy Inquiry Pt receiving controlled substance: No - Lab Data Lab results reviewed: Yes: I reviewed the patient's lab results. Result diagrams: 06/01/20 06:51 06/01/20 06:51 - Radiology Data #1 Image(s): Pelvis, Hip Image Reviewed: Yes I reviewed the patient's radiology image Preliminary Findings: Abnormal - CT Data CT Scan: Abdomen, Pelvis, Chest Time Received: 09:[address] Reviewed: Yes: I have viewed the radiologist's interpretation Preliminary Findings: Abnormal (rib fx ) <Larry Bedolla - Last Filed: 06/01/20 09:48> - Medical Records MR Comment: CT of the hip with no acute fracture. Discharged home. - Lab Data Result diagrams: 06/01/20 06:51 06/01/20 06:51 <Nehemiah Benoit - Last Filed: 06/01/20 10:45> Vital Signs: 06/01/20 06:26 Temperature 98.1 F Temperature Source Oral Pulse Rate [Left Radial] 87 Respiratory Rate 16 Blood Pressure [Right Arm] 187/104 H Blood Pressure Mean [Right Arm] 131 Blood Pressure Source [Right Arm] Automatic Cuff Blood Pressure Position [Right Arm] Sitting 02 Sat by Pulse Oximetry 97 Oxygen Delivery Method Room Air - Lab Data Lab Results 06/01/20 06:51: WBC 3.3 L, RBC 4.80, Hgb 14.8, Hct 47.5 H, MCV 99.0, MCH 30.8, MCHC 31.1 L, RDW 13.8, Plt Count 103 L, MPV 9.3, Neut % (Auto) 56.6, Lymph % (Auto) 36.2, Dewey % (Auto) 4.4, Eos % (Auto) 2.2, Baso % (Auto) 0.6, Neut # (Auto) 1.9, Lymph # (Auto) 1.2, Dewey # (Auto) 0.2, Eos # (Auto) 0.1, Baso # (Auto) 0.0 06/01/20 06:51: Sodium 140, Potassium 4.2, Chloride 104, Carbon Dioxide 31 H, Anion Gap 9.2, BUN 8, Creatinine 0.90, Estimated Creat Clear 90, Estimated GFR 64, Est GFR ( Amer) 78, Glucose 376 H, Calcium 10.0, Total Bilirubin 1.0, AST 56 H, ALT 56, Alkaline Phosphatase 165 H, Total Protein 8.7 H, Albumin 4.3, Globulin 4.4 H, Albumin/Globulin Ratio 1.0 L Orders (Tests/Meds): ED MEDICATIONS Discontinued Medications Generic Name Dose Route Start Last Admin Trade Name Edwin PRN Reason Stop Dose Admin Iopamidol 75 ml 06/01/20 08:12 06/01/20 08:12 Iopamidol-370 (76%);100ml Bottle IV 06/01/20 08:13 75 ml ONCE ONE Administration Fall HPI - General Mode of Arrival: Ambulatory Source of Information: Patient, Medical Record Limitations: No Limitations Description of Symptoms (Recalled from ER Triage Doc. by RN): pt fell 3 hours ago after tripping over a pair of shoes. pt denies any LOC. pt c/o right rib pain at this time and reports RUQ pain when palpating. - History of Present Illness MD complaint: fall Onset (
[2020-06-01 07:10] LABS: Basophils % 0.6 % (0.1-2.0); Eosinophils # 0.1 K/mm3 (0.0-0.4); Eosinophils % 2.2 % (0.1-12.0); Hematocrit 47.5 % (37.0-47.0); Hemoglobin 14.8 g/dL (12.2-16.2); Lymphocytes # 1.2 K/mm3 (0.7-4.5); Lymphocytes % 36.2 % (10-50); Mean Corpuscular HGB Conc 31.1 g/dL (31.8-35.4); Mean Corpuscular Hemoglobin 30.8 pg (27.0-31.2); Mean Platelet Volume 9.3 fl (7.4-10.4); Monocytes # 0.2 K/mm3 (0.1-1.0); Monocytes % 4.4 % (1.7-9.3); Neutrophils # 1.9 K/mm3 (1.8-7.8); Neutrophils % 56.6 % (37.0-80.0); Platelet Count 103 K/mm3 (142-424); Red Cell Distribution Width 13.8 % (11.5-17.5); White Blood Count 3.3 K/mm3 (4.8-10.8)
[2020-06-01 07:29] LABS: Chloride 104 mmol/L (98-107); Potassium 4.2 mmoL/L (3.5-5.1); Sodium 140 mmol/L (136-145)
[2020-06-01 07:32] LABS: Alanine Aminotransferase 56 U/L (12-78); Albumin Level 4.3 g/dl (3.5-5.0); Alkaline Phosphatase 165 U/L (38-126); Anion Gap 9.2 mEq/L (5-15); Aspartate Amino Transferase 56 U/L (14-36); Blood Urea Nitrogen 8 mg/dl (7-17); Carbon Dioxide 31 mmol/L (22.0-30.0); Creatinine Clearance Estimated 90 mL/min (50-200); Estimated Glomerular Filt Rate 64 ml/min (>60); GFR (African American) 78 ML/MIN (>60); Globulin 4.4 g/dL (1.3-3.2); Glucose 376 mg/dl (74-100); Total Protein,Serum 8.7 g/dl (6.3-8.2)
--- NOTE | 2020-06-01 09:30 | XR_ITS ---
PROCEDURE: XR HIP RT 2-3V W/PELVIS CLINICAL INDICATION: fall posttraumatic pain COMPARISON: CT CT ABDOMEN W CON from 06/01/2020 FINDINGS: There is persistent vague lucency through the intertrochanteric region of the right hip. While this may represent artifact, 1 cannot exclude the possibility of a nondisplaced fracture. Consider CT for more thorough evaluation. She there are mild osteoarthritic changes of the hips and there is a small amount contrast within the urinary bladder. IMPRESSION: Persistent lucency through the right intertrochanteric region possibly due to skin fold artifact. Cannot exclude fracture. Dictated by: Sen Jin MD 06/01/2020 09:49 Sen Jin MD in [facility] 06/01/2020 09:49
--- NOTE | 2020-06-01 09:47 | CT_ITS ---
PROCEDURE: CT HIP RT WO CON CLINICAL HISTORY: hip pain Right hip pain with indeterminate radiograph COMPARISON: CT CT ABDOMEN PELVIS W CON from 09/26/2019 TECHNIQUE: Axial images obtained with sagittal and coronal reformats. All CT scans at the facility use one or more dose reduction, viz: automated exposure control, ma/kV adjustment per patient size (including targeted exams where dose is matched to indication, i.e. head), or iterative reconstruction technique. FINDINGS: No acute fracture or dislocation is evident. No lytic or blastic change. There are mild osteoarthritic changes. Contrast is present in the urinary bladder. IMPRESSION: No acute fracture. Dictated by: Sen Jin MD 06/01/2020 10:29 Sen Jin MD in [facility] 06/01/2020 10:29
[2020-06-01 11:15] VITALS: BP 132/90; PULSE 87; RESP 18; TEMP 36.6; O2SAT 99
== END 2020-06-01 11:15 | disposition home or self-care (01) ==
PROVIDERS: Emergency Provider Emergency Medicine; PCP Emergency Medicine
DX: S22.31XA Fracture of one rib, right side, initial encounter for closed fracture (principal); S30.1XXA Contusion of abdominal wall, initial encounter; W01.0XXA Fall on same level from slipping, tripping and stumbling without subsequent striking against object, initial encounter; Y92.019 Unspecified place in single-family (private) house as the place of occurrence of the external cause; E11.65 Type 2 diabetes mellitus with hyperglycemia; Z79.4 Long term (current) use of insulin; I10 Essential (primary) hypertension
CPT/HCPCS: 71250; 72170; 73502; 73700; 74160; 80053; 85025; 99282; Q9967

== ENCOUNTER 2020-06-20 09:39 | Emergency (ER) | payer MEDICAID, SELFPAY ==
[2020-06-20 10:00] VITALS: BP 168/89; PULSE 87; RESP 19; TEMP 36.6; O2SAT 98; BMI 29.9
--- NOTE | 2020-06-20 10:25 | HMH.EDUTC ---
[facility] [place] Disposition Clinical Impression: Sinusitis Qualifiers: Sinusitis location: unspecified location Chronicity: unspecified Qualified Code(s): J32.9 - Chronic sinusitis, unspecified Disposition: Home, Self-Care Condition on Discharge: Good Instructions: Sinusitis, Sinus Headache, DI for Sinusitis, Amoxicillin and Clavulanic Acid Additional Instructions: *Monitor Temp, Over the counter Motrin or Tylenol as directed/as needed Tylenol every 4 hours and Motrin every 6 hours (as long as your family doctor has told you that you can take it) for fever or pain. and straight to ER if unable to lower temp less than 101.0 after medication given *Warm salt water gargles may help to soothe the throat *Throat Lozenges *Warm fluids like tea with honey may help to soothe the throat *Sleep elevated *Humidifier/Vaporizer *Flonase 2 sprays in each nostril daily but be aware that it may take 2-3 days before you notice improvement Your throat swab was sent for culture. Those results are typically sent to your primary care. Be sure to follow up in 2-3 days with your family doctor/primary care physician if no improvement so they can review those result and treat if necessary. If you don?t have a primary care doctor, I recommend you get one but in the mean time, you will have to return to a walk in clinic Follow up IMMEDIATELY for new or worsening symptoms or no Noticeable improvement over the next 48-72 hours. 911 for difficulty breathing or swallowing Take medication as prescribed You was tested for today for COVID19 your test result should be back in the next 24-48 hours, you may call to the [facility] tomorrow to see if your test results are back and the result [phone] [facility] hours are 9am-9pm You was given a handout with instructions for Self Quarantine and Self isolation for while you wait on test results and what to do if they are positive If you are positive the Health Dept will be contacting you also Prescriptions: Amoxicillin/Potassium Clav [Augmentin 875-125 Tablet] 1 tab PO Q12H 10 Days #20 tab Transmission Status: Pending to [facility] #[id number] Fluticasone Propionate [Flonase 50mcg nasal spray 16gm] 1 spr NS DAILY #1 bottle Transmission Status: Pending to [facility] #[id number] Referrals: Larry Bedolla MD [Primary Care Provider] - As needed Time of Disposition: 10:34 Medical Decision Making - Billy Inquiry Pt receiving controlled substance: No Billy was queried for this patient: No Vital Signs: 06/20/20 10:00 Temperature 97.8 F Temperature Source Oral Pulse Rate [Right Brachial] 87 Respiratory Rate 19 Blood Pressure [Right Arm] 168/89 H Blood Pressure Mean [Right Arm] 115 Blood Pressure Source [Right Arm] Automatic Cuff Blood Pressure Position [Right Arm] Sitting 02 Sat by Pulse Oximetry 98 Oxygen Delivery Method Room Air - Lab Data Lab results reviewed: Yes: I reviewed the patient's lab results. Orders (Tests/Meds): ORDERS Category Date Time Status Covid-19 Nasal PCR Sendout [facility] 06/20/20 10:12 Ordered Medical Decision Narrative: Patient state that she has taken augmentin before without reactions or complications [facility] [place] HPI - General Stated complaint: Cough, runny nose Time Seen by Provider: 06/20/20 10:25 Mode of Arrival: Ambulatory Source of Information: Patient Limitations: No Limitations Description of Symptoms (Recalled from Triage Doc. by RN): PATIENT C/O COUGH, RUNNY NOSE, HEADACHE, AND SORE THROAT SINCE YESTERDAY HEENT Symptoms (Recalled from RN notes): Yes Resp Symptoms (Recalled from RN notes): Yes Skin Symptoms (Recalled from RN notes): No MS Symptoms (Recalled from RN notes): No Functional Status (Recalled from RN notes): WNL - History of Present Illness Provider Complaint: Patient states that she has been having sinus pain and pressure on and off for over a week States that yesterday she started having pressure behind her eyes and feels like it is making her
[2020-06-20 10:39] VITALS: BP 168/89; PULSE 87; RESP 19; TEMP 36.6; O2SAT 98
[2020-06-20 11:55] LABS: UTC Influenza A Antigen Negative (Negative); UTC Strep Screen (Rapid) Negative (Negative)
[2020-06-20 11:56] LABS: UTC Influenza B Antigen Negative (Negative)
[2020-06-21 15:43] LABS: Covid-19 Nasal PCR Sendout Lex Not Detected
== END 2020-06-20 10:45 | disposition home or self-care (01) ==
PROVIDERS: Emergency Provider Nurse Practitioner; PCP Emergency Medicine
DX: Z20.828 Contact with and (suspected) exposure to other viral communicable diseases (principal); J32.9 Chronic sinusitis, unspecified; I10 Essential (primary) hypertension; E78.5 Hyperlipidemia, unspecified; F41.8 Other specified anxiety disorders; E11.9 Type 2 diabetes mellitus without complications; I25.2 Old myocardial infarction; Z79.899 Other long term (current) drug therapy
CPT/HCPCS: 87804; 87880; 99202; U0004

== ENCOUNTER → 2020-08-15 13:31 | Outpatient (CLI) | payer MEDICARE, MEDICAID, SELFPAY ==
--- NOTE | 2020-08-15 13:42 | XR_ITS ---
PROCEDURE: XR WRIST LT MIN 3V CLINICAL INDICATION: left wrist pain/ cts COMPARISON: No exams were available for comparison FINDINGS: Ulnar minus variant is present with ulnar angulation of the distal radius articular surface. No fracture or dislocation. No lytic or blastic change. The joint spaces are well-preserved. No significant degenerative/arthritic changes. No erosive changes evident. Other findings:None. IMPRESSION: Ulnar minus variant as described above with ulnar angulation of the distal radius articular surface Dictated by: Sen Jin MD 08/15/2020 14:04 Sen Jin MD in [facility] 08/15/2020 14:04
--- NOTE | 2020-08-15 13:42 | XR_ITS ---
PROCEDURE: XR WRIST RT MIN 3V CLINICAL INDICATION: right wrist pain/ cts COMPARISON: DX XR WRIST LT MIN 3V from 08/15/2020 FINDINGS: The distal radius and ulna have an abnormal appearance with the distal radius and ulna forming a shape. The lunate is unremarkable. There is ulnar minus variant. Along the distal aspect of the scaphoid on the AP view there is an extra calcific density which may be overlap of the trapezium however, there does appear to be a fracture at this area. This may be old. CT may provide further evaluation for this abnormality. 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 CT may provide further evaluation. Dictated by: Sen Jin MD 08/15/2020 14:03 Sen Jin MD in [facility] 08/15/2020 14:03
== END ==
PROVIDERS: PCP Emergency Medicine; Visit Provider Orthopaedic Surgery
DX: M25.532 Pain in left wrist (principal); M25.531 Pain in right wrist
CPT/HCPCS: 73110

== ENCOUNTER → 2020-09-11 13:33 | Outpatient (CLI) | payer MEDICARE, MEDICAID, SELFPAY ==
[2020-09-11 15:06] LABS: Amphetamine/Metha Screen,Urine Negative ng/ml (<1000)
[2020-09-11 15:07] LABS: Cannabinoid Screen,Urine Negative ng/ml (<50)
[2020-09-11 15:08] LABS: Barbiturates Screen,Urine Negative ng/ml (<200)
[2020-09-11 15:09] LABS: Benzodiazepines Screen,Urine Negative ng/ml (<200); Cocaine Screen,Urine Negative ng/ml (<300)
[2020-09-11 15:10] LABS: Methadone Screen,Urine Negative ng/ml (<300)
[2020-09-11 15:11] LABS: Opiate Screen,Urine Positive ng/ml (<300)
[2020-09-11 15:12] LABS: Phencyclidine Screen,Urine Negative ng/ml (<25)
== END ==
PROVIDERS: Visit Provider Emergency Medicine
DX: Z79.899 Other long term (current) drug therapy (principal)
CPT/HCPCS: 80305

== ENCOUNTER → 2020-11-13 12:17 | Outpatient (CLI) | payer MEDICARE, MEDICAID, SELFPAY ==
[2020-11-13 13:50] LABS: Chloride 104 mmol/L (98-107); Sodium 143 mmol/L (136-145)
[2020-11-13 13:51] LABS: Potassium 4.5 mmoL/L (3.5-5.1)
[2020-11-13 13:53] LABS: Alanine Aminotransferase 46 U/L (12-78); Albumin Level 4.2 g/dl (3.5-5.0); Albumin/Globulin Ratio 1.1 (1.1-1.8); Alkaline Phosphatase 146 U/L (38-126); Anion Gap 13.5 mEq/L (5-15); Aspartate Amino Transferase 48 U/L (14-36); Bilirubin,Total 0.9 mg/dl (0.2-1.3); Blood Urea Nitrogen 22 mg/dl (7-17); Carbon Dioxide 30 mmol/L (22.0-30.0); Cholesterol 200 mg/dl (140-200); Estimated Glomerular Filt Rate 51 ml/min (>60); GFR (African American) 62 ML/MIN (>60); Globulin 3.8 g/dL (1.3-3.2); Triglycerides 152 mg/dl (30-150); VLDL Cholesterol 30 mg/dL (0-40)
[2020-11-13 13:54] LABS: Calcium 9.9 mg/dl (8.4-10.2); Chol/HDL Ratio 4.7 (1-3.5); Glucose 276 mg/dl (74-100); HDL Cholesterol 43 mg/dl (40-60)
[2020-11-13 14:04] LABS: Hemoglobin A1C 12.4 % (4.0-6.0)
[2020-11-13 14:07] LABS: Direct LDL Cholesterol 115.97 mg/dL (100-129)
[2020-11-13 14:32] LABS: Thyroid Stimulating Hormone 0.17 uIU/mL (0.465-4.68)
== END ==
PROVIDERS: Visit Provider Nurse Practitioner Family
DX: E11.9 Type 2 diabetes mellitus without complications (principal); Z79.4 Long term (current) use of insulin
CPT/HCPCS: 36415; 80053; 80061; 82043; 83036; 84443

== ENCOUNTER → 2020-11-20 08:41 | Outpatient (CLI) | payer MEDICARE, MEDICAID, SELFPAY ==
--- NOTE | 2020-11-20 09:20 | CT_ITS ---
PROCEDURE: CT ABDOMEN PELVIS W CON CLINICAL INDICATION: Rectal wall thicking / no lesions Vomiting [id number] gastro Prior on pacs COMPARISON: CT CT ABDOMEN PELVIS W CON from 09/26/[address] ABDOMEN W CON from 06/01/2020 TECHNIQUE: IV Contrast: 75ML Isovue 370 Oral Contrast None Axial images obtained with sagittal and coronal reformats. All CT scans at the facility use one or more dose reduction, viz: automated exposure control, ma/kV adjustment per patient size (including targeted exams where dose is matched to indication, i.e. head), or iterative reconstruction technique. FINDINGS: LOWER THORAX: Coronary artery calcification and/or stents noted. ABDOMEN & PELVIS: Prior cholecystectomy. Liver margin is somewhat irregular along its inferior margin on the right. No focal liver lesions are apparent. Early cirrhosis would be a consideration. Spleen is mildly enlarged at 14 cm. No varices apparent. Portal vein is normal in size. There are few small periportal lymph nodes not significantly changed. The pancreas and adrenal glands have an unremarkable appearance. Bilateral renal cortical scarring is present. No renal mass or hydronephrosis. Renal cyst is present along the lower pole on the left at 15 mm. No intestinal obstruction or free air. No evidence of appendicitis. No evidence of diverticulitis. No pelvic mass or abnormal fluid collection. There is a mild amount of retained colonic feces. The uterus is canted toward the left. There is once again a thickened appearance noted of the lower rectum/perianal region. This does not appear significantly changed over 1 year. Correlation with physical exam needed. Probable hemangioma of T7. IMPRESSION: 1. Persistent mild thickening of the lower rectum/perianal region not significantly changed. Correlation with physical exam needed. 2. Suspect mild cirrhosis with associated splenomegaly. Dictated by: Sen Jin MD 11/21/2020 10:33 Sen Jin MD in [facility] 11/21/2020 10:33
== END ==
PROVIDERS: PCP Emergency Medicine; Visit Provider Surgery
DX: R93.5 Abnormal findings on diagnostic imaging of other abdominal regions, including retroperitoneum (principal); R11.2 Nausea with vomiting, unspecified
CPT/HCPCS: 74177; Q9967

== ENCOUNTER → 2020-12-05 08:38 | Outpatient (CLI) | payer MEDICARE, MEDICAID, SELFPAY ==
--- NOTE | 2020-12-05 08:42 | FL_ITS ---
PROCEDURE: FL UPPER GI SMALL BOWEL CLINICAL INDICATION: NAUSEA AND VOMITING COMPARISON: No exams were available for comparison FINDINGS: The limited views of the esophagus demonstrate multiple tertiary contractions. Small hiatus hernia is noted. There is moderate gastroesophageal reflux. The stomach demonstrates normal rugal pattern and distensibility. No focal lesions are noted. The gastroduodenal junction is unremarkable. The strands small-bowel transit time is 1 hours 15 minutes. Reflux of contrast is noted into the appendix. The small bowel loops demonstrate normal mucosal pattern without evidence of strictures or fistulous communication. The ileocecal junction demonstrates no focal abnormality. IMPRESSION: Gastroesophageal reflux. Small hiatus hernia. Otherwise unremarkable study. Dictated by: Margie Hare 12/05/2020 14:22 Margie Hare in [facility] 12/05/2020 14:22
== END ==
PROVIDERS: PCP Emergency Medicine; Visit Provider Surgery
DX: R11.2 Nausea with vomiting, unspecified (principal)
CPT/HCPCS: 74246; 74248

== ENCOUNTER → 2020-12-25 12:54 | Outpatient (CLI) | payer MEDICARE, MEDICAID, SELFPAY ==
[2020-12-25 15:00] LABS: Free T4 (Free Thyroxine) 1.55 ng/dl (0.78-2.19)
[2020-12-30 10:47] LABS: Miscellaneous Test <1.10
== END ==
PROVIDERS: Visit Provider Nurse Practitioner Family
DX: Z79.891 Long term (current) use of opiate analgesic (principal)
CPT/HCPCS: 36415; 84439; 84443

== ENCOUNTER → 2020-12-27 14:15 | Outpatient (CLI) | payer MEDICARE, MEDICAID, SELFPAY | PROVIDERS: Visit Provider Surgery | DX: Z01.812 Encounter for preprocedural laboratory examination (principal); Z11.52 Encounter for screening for COVID-19 | CPT/HCPCS: U0003 ==

== ENCOUNTER 2020-12-28 08:20 | Day surgery (SDC) | payer MEDICARE, MEDICAID, SELFPAY ==
[2020-12-19 12:56] VITALS: BMI 29.6
[2020-12-28 08:36] VITALS: BP 183/93; PULSE 102; RESP 18; TEMP 36.4; O2SAT 98
--- NOTE | 2020-12-28 08:37 | P.PN_ITS ---
[facility] Anesthesia Checklist - Patient Identification Patient Identification: Arm Band - Structural Data Admitted From: Home Planned Operative Procedure/s: EGD/Anoscope Consent for Planned Operative Procedure(s) Verified: Yes - NPO Status Verified Time NPO: 00:00 - Additional verifications Anesthesia Reactions: No Hx Blood Transfusions: No Blood Transfusion Reaction: No - Airway Assessment C-Spine Mobility Assessed: Yes TMJ Mobility Assessed: Yes Dentition: Poor Dentition - Neurological Assessment Level of Consciousness: Awake Hx Seizures: No Numbness or tingling in extremities: No - Anesthesia Plan Anesthesia Risk discussed: Yes Anesthesia Plan: Verified ASA Class: III Anesthesia Type: MAC [facility] History I have reviewed the patient's past medical history: Yes Medical History: Reports:: Anxiety, Coronary Artery Disease, Depression, Diabetes Mellitus Type 2, Hyperlipidemia, Hypertension, Myocardial Infarction Denies:: Cancer, Diabetes Mellitus Type 1, Internal Pacemaker, MRSA, Seizures *Have you ever received a pneumonia vaccine?: Yes *Have you received a flu vaccine this season?: Yes Other Medical History: Denies: Blood Transfusion Reaction Anesthesia experience/problems:: None Laterality Cases: Bilateral: Other Other Surgeries: Yes: No Previous Surgery, Angiogram, Angioplasty, Cardiac Catheterization, Cardiac Surgery, Cholecystectomy, Colonoscopy, Coronary Stent, Dilation and Curettage, EGD, Other. No: Pacemaker Amputation: No Fractures: No - *Social History Last grade of school completed: High school graduate Smoking Status: Never smoker # Packs/Day (cigarettes): 1 Alcohol Intake: never Alcohol Intake Frequency:: other Substance Use Type: denies use *Occupational Status:: disabled Housing: house Household Members: none *Travel in the last 8 weeks: None - Psychiatric History Pschychiatric History:: Reports:: Anxiety, Depression Family Hx:: Cancer, Diabetes
[2020-12-28 08:53] LABS: POC Glucose,Bedside 405 (70-110)
--- NOTE | 2020-12-28 08:55 | SUR.PREOP ---
Sebastián VALVERDE REGULATORY COMPLIANCE SPECIALIST NOTIFIED OF BS 405. 10U REG INSULIN GIVEN IV, WILL RECHECK FS IN 30 MINUTES.
--- NOTE | 2020-12-28 09:26 | SUR.PREOP ---
RECHECK FSBS 345, Sebastián VALVERDE SPEECH SCIENTIST NOTIFIED. GOING TO PROCEED WITH PROCEDURE, RISKS DISCUSSED WITH PT PER Ly ZUÑIGA CRNA.
[2020-12-28 09:34] LABS: POC Glucose,Bedside 345 (70-110)
[2020-12-28 09:40] VITALS: O2SAT 98
[2020-12-28 10:00] VITALS: BP 96/54; PULSE 87; RESP 18; TEMP 36.9; O2SAT 95
--- NOTE | 2020-12-28 10:07 | HMH.SCOPE ---
- Procedure: Date: 12/28/20 Patient Date of :: 1960 Procedure Performed:: Esophagogastroscopy Anoscopy/digital rectal exam Indications:: Reflux Abnormal perianal/perirectal soft tissue thickening per CT scan (stable over 1 year) Performing Provider:: Min Quiñonez MD Referring Provider:: . Sedation:: Monitored anesthesia care Procedure:: After informed consent was obtained the patient was taken to the endoscopy suite. Sedation ensued after the patient was transferred to the left lateral decubitus position. Pulse, blood pressure, and oxygen saturation were monitored throughout the procedure. The endoscope was advanced into the gastric lumen. A very large amount of food particles were immediately noted. Essentially, the gastric lumen was full with impacted food particles. The gastroscope was carefully removed. Attention was turned to digital rectal exam/anoscopy. Formed stool was evacuated from the rectal vault. No mass lesions areas of significant thickening were noted. The endoscope was placed in position. No abnormalities were noted on inspection. The endoscope was removed and the patient was transferred to recovery in stable condition. Findings:: Large volume of impacted food particles in gastric lumen Gastroesophageal junction at 38 cm No obvious abnormalities noted on endoscopy/digital rectal exam Specimens:: None Recommendations:: Ongoing evaluation with regard to likely gastroparesis. Repeat CT scan with regard to anorectal soft tissue thickening in 6-12 months. She will be due for colonoscopy in approximately 1 year. Complications:: No immediate Estimated blood obtained (mL): 0
[2020-12-28 10:10] VITALS: BP 101/62; PULSE 90; RESP 18; TEMP 37.2; O2SAT 95
[2020-12-28 10:20] VITALS: BP 125/91; PULSE 92; RESP 18; TEMP 37.2; O2SAT 96
[2020-12-28 10:30] VITALS: BP 135/83; PULSE 89; RESP 18; TEMP 37.2; O2SAT 98
[2020-12-28 11:06] LABS: POC Glucose,Bedside 269 (70-110)
== END 2020-12-28 10:35 | disposition home or self-care (01) ==
LOC: OUTP 08:22
PROVIDERS: PCP Emergency Medicine; Visit Provider Surgery
PROC: 0DJ08ZZ Inspection of Upper Intestinal Tract, Via Natural or Artificial Opening Endoscopic (ICD-10-PCS; CPT 43235; principal; 2020-12-28 09:30)
DX: K31.89 Other diseases of stomach and duodenum (principal); K21.9 Gastro-esophageal reflux disease without esophagitis; R93.5 Abnormal findings on diagnostic imaging of other abdominal regions, including retroperitoneum; E11.9 Type 2 diabetes mellitus without complications; E78.5 Hyperlipidemia, unspecified; I10 Essential (primary) hypertension; I25.2 Old myocardial infarction; I25.10 Atherosclerotic heart disease of native coronary artery without angina pectoris; F41.9 Anxiety disorder, unspecified; F32.9 Major depressive disorder, single episode, unspecified; Z90.49 Acquired absence of other specified parts of digestive tract; Z80.9 Family history of malignant neoplasm, unspecified
CPT/HCPCS: 43235; 46600; 82962

== ENCOUNTER → 2021-01-19 13:59 | Outpatient (CLI) | payer MEDICARE, MEDICAID, SELFPAY ==
[2021-01-19 15:18] LABS: Amphetamine/Metha Screen,Urine Negative ng/ml (<1000); Barbiturates Screen,Urine Negative ng/ml (<200)
[2021-01-19 15:19] LABS: Benzodiazepines Screen,Urine Negative ng/ml (<200)
[2021-01-19 15:20] LABS: Cannabinoid Screen,Urine Negative ng/ml (<50); Cocaine Screen,Urine Negative ng/ml (<300)
[2021-01-19 15:21] LABS: Methadone Screen,Urine Negative ng/ml (<300)
[2021-01-19 15:22] LABS: Opiate Screen,Urine Positive ng/ml (<300); Phencyclidine Screen,Urine Negative ng/ml (<25)
== END ==
PROVIDERS: Visit Provider Emergency Medicine
DX: M25.512 Pain in left shoulder (principal)
CPT/HCPCS: 80305

== ENCOUNTER → 2021-02-07 12:48 | Outpatient (CLI) | payer MEDICARE, MEDICAID, SELFPAY ==
[2021-02-08 10:17] LABS: Hep A Ab, IgM Negative (Negative); Hepatitis B Core Antibody IgM Negative (Negative); Hepatitis B Surface Antigen Negative (Negative); Hepatitis C Antibody <0.1 s/co ratio (0.0-0.9)
== END ==
PROVIDERS: Visit Provider Emergency Medicine
DX: R53.1 Weakness (principal)
CPT/HCPCS: 36415; 80074

== ENCOUNTER 2021-02-25 12:04 | Emergency (ER) | payer MEDICARE, MEDICAID, SELFPAY ==
[2021-02-25 13:04] VITALS: BP 181/106; PULSE 98; RESP 17; TEMP 36.9; O2SAT 98; BMI 29.0
--- NOTE | 2021-02-25 13:11 | HMH.EDUTC ---
[facility] [place] Clinical Impression: Second degree burn of left hand Qualifiers: Encounter type: initial encounter Burn of hand location: single finger excluding thumb Qualified Code(s): T23.222A - Burn of second degree of single left finger (nail) except thumb, initial encounter Diabetes Qualifiers: Diabetes mellitus type: type 2 Diabetes mellitus half-way insulin use: unspecified half-way insulin use status Diabetes mellitus complication status: with other specified complication Qualified Code(s): E11.69 - Type 2 diabetes mellitus with other specified complication Disposition: Home, Self-Care Condition on Discharge: Good Instructions: How to Take Care of a Burn, DI for Chir[place] Additional Instructions: Keep the wound clean and dry. Watch the for signs of worsening infection, such as redness, swelling, drainage, fever. etc. take tylenol or ibuprofen for pain. Follow up with your regular doctor. GO TO THE ER FOR ANY WORSENING SYMPTOMS OR CONCERNS. Prescriptions: Mupirocin [Bactroban 2% Ointment 22gm tube] 1 applicatio TP TID 7 Days #1 tube Transmission Status: Received by [facility] #[id number] cephALEXin [cephALEXin 500mg capsule] 500 mg PO Q6H 10 Days #40 cap Transmission Status: Received by [facility] #[id number] Referrals: Larry Bedolla MD [Primary Care Provider] - Time of Disposition: 13:43 Medical Decision Making - Medical Records Medical records reviewed: No: I reviewed the patient's medical records. - Billy Inquiry Pt receiving controlled substance: No Vital Signs: 02/25/21 13:04 02/25/21 14:10 Temperature 98.5 F 98.4 F Temperature Source Oral Pulse Rate 99 H Pulse Rate [Left] 98 H Respiratory Rate 17 18 Blood Pressure 163/99 H Blood Pressure [Right Arm] 181/106 H Blood Pressure Mean [Right Arm] 131 02 Sat by Pulse Oximetry 98 Orders (Tests/Meds): ED MEDICATIONS Discontinued Medications Generic Name Dose Route Start Last Admin Trade Name Freq PRN Reason Stop Dose Admin Ceftriaxone Sodium 1 gm 02/25/21 13:21 02/25/21 13:39 Ceftriaxone 1gm Vial IM 02/25/21 13:22 1 gm ONCE ONE Administration Protocol Lidocaine HCl 0 ml 02/25/21 13:21 02/25/21 13:39 Lidocaine 1% 5ml Pf Vial IM 02/25/21 13:22 2.5 ml ONCE ONE Administration Tetanus/Reduced Diphtheria/Acell Pertussis 0.5 ml 02/25/21 13:21 02/25/21 13:40 Tet/Diphth/Pert-Adult 0.5ml Syringe IM 02/25/21 13:22 0.5 ml .ONCE ONE Administration [facility] [place] - General Stated complaint: burn on lt middle finger 02/21 Time Seen by Provider: 02/25/21 13:11 Mode of Arrival: Ambulatory Source of Information: Patient Limitations: No Limitations Description of Symptoms (Recalled from Triage Doc. by RN): pt states she burnt her middle finger on her L hand on fri. it formed a large blister and she popped it. she has been soaking it in peroxide. HEENT Symptoms (Recalled from RN notes): No Resp Symptoms (Recalled from RN notes): No Skin Symptoms (Recalled from RN notes): Yes (burn to L hand middle finger) MS Symptoms (Recalled from RN notes): No Functional Status (Recalled from RN notes): na - History of Present Illness Provider Complaint: She states that she was cooking and burnt her left middle finger on (3 days ago). She c/o redness at the site and pain. She is a diabetic. - Related Data Home Medications Medication Instructions Recorded Confirmed cyclobenzaprine 10 mg tablet 10 mg PO TIDP PRN 30 Days #90 tab 06/24/18 01/19/21 Aspirin [Low Dose Aspirin EC] 81 mg PO HS 06/14/19 01/19/21 Atorvastatin Calcium [Lipitor 40mg 40 mg PO HS 06/14/19 01/19/21 Tablet*] Nabumetone 750 mg PO BID 01/19/20 01/19/21 insulin lispro protamine-lispro 63 unit SQ TID ml 11/13/20 01/19/21 100 unit/mL (75-25) subcutaneous pen Clopidogrel Bisulfate [Plavix] See Rx Instructions .ROUTE .COMPLEX 12/19/20 01/19/21 Fluticasone Propionate [Flonase 1 spr NS DAILY
[2021-02-25 14:10] VITALS: BP 163/99; PULSE 99; RESP 18; TEMP 36.9
== END 2021-02-25 14:10 | disposition home or self-care (01) ==
PROVIDERS: Emergency Provider Nurse Practitioner Family; PCP Emergency Medicine
DX: T23.222A Burn of second degree of single left finger (nail) except thumb, initial encounter (principal); X08.8XXA Exposure to other specified smoke, fire and flames, initial encounter; Y92.019 Unspecified place in single-family (private) house as the place of occurrence of the external cause; E11.69 Type 2 diabetes mellitus with other specified complication; I10 Essential (primary) hypertension; E78.5 Hyperlipidemia, unspecified; Z23 Encounter for immunization; I25.2 Old myocardial infarction; Z79.899 Other long term (current) drug therapy
CPT/HCPCS: G0463; 90471; 90715; 96372; 99202

== ENCOUNTER → 2021-04-23 17:55 | Outpatient (CLI) | payer MEDICARE, MEDICAID, SELFPAY ==
[2021-04-23 18:52] LABS: Basophils # 0.1 K/mm3 (0-0.2); Basophils % 1.2 % (0.1-2.0); Eosinophils # 0.1 K/mm3 (0.0-0.4); Eosinophils % 3.1 % (0.1-12.0); Hemoglobin 15.1 g/dL (12.2-16.2); Lymphocytes # 1.4 K/mm3 (0.7-4.5); Lymphocytes % 30.1 % (10-50); Mean Corpuscular HGB Conc 32.1 g/dL (31.8-35.4); Mean Corpuscular Hemoglobin 31.6 pg (27.0-31.2); Mean Corpuscular Volume 98.5 fl (81-99); Mean Platelet Volume 10.1 fl (7.4-10.4); Monocytes # 0.2 K/mm3 (0.1-1.0); Monocytes % 4.5 % (1.7-9.3); Neutrophils # 2.8 K/mm3 (1.8-7.8); Neutrophils % 61.1 % (37.0-80.0); Platelet Count 144 K/mm3 (142-424); Red Blood Count 4.77 M/mm3 (4.20-5.40); Red Cell Distribution Width 14.4 % (11.5-17.5); White Blood Count 4.5 K/mm3 (4.8-10.8)
[2021-04-23 19:01] LABS: Alanine Aminotransferase 39 U/L (12-78); Albumin Level 3.7 g/dl (3.5-5.0); Alkaline Phosphatase 145 U/L (38-126); Anion Gap 10.9 mEq/L (5-15); Aspartate Amino Transferase 48 U/L (14-36); Bilirubin,Total 0.8 mg/dl (0.2-1.3); Blood Urea Nitrogen 13 mg/dl (7-17); Calcium 9.3 mg/dl (8.4-10.2); Carbon Dioxide 27 mmol/L (22.0-30.0); Chloride 105 mmol/L (98-107); Chol/HDL Ratio 4.3 (1-3.5); Cholesterol 168 mg/dl (140-200); Estimated Glomerular Filt Rate 86 ml/min (>60); GFR (African American) 104 ML/MIN (>60); Globulin 3.8 g/dL (1.3-3.2); Glucose 327 mg/dl (74-100); HDL Cholesterol 39 mg/dl (40-60); Potassium 4.9 mmoL/L (3.5-5.1); Sodium 138 mmol/L (136-145); Total Protein,Serum 7.5 g/dl (6.3-8.2); Triglycerides 135 mg/dl (30-150); VLDL Cholesterol 27 mg/dL (0-40)
[2021-04-23 19:18] LABS: T4 (Thyroxine) 8.7 ug/dl (5.53-11.0)
[2021-04-23 19:20] LABS: 25-OH Vitamin D, Total 27.8 ng/mL (30-100)
[2021-04-23 19:32] LABS: Thyroid Stimulating Hormone 0.16 uIU/mL (0.465-4.68)
[2021-04-23 20:55] LABS: Hemoglobin A1C 11.9 % (4.0-6.0)
== END ==
PROVIDERS: Visit Provider Nurse Practitioner Family
DX: E11.65 Type 2 diabetes mellitus with hyperglycemia (principal); E66.9 Obesity, unspecified; I10 Essential (primary) hypertension; T23.202A Burn of second degree of left hand, unspecified site, initial encounter; E55.9 Vitamin D deficiency, unspecified; G56.00 Carpal tunnel syndrome, unspecified upper limb; Z79.4 Long term (current) use of insulin
CPT/HCPCS: 80053; 80061; 82306; 83036; 84436; 84443; 85025

== ENCOUNTER → 2021-05-09 12:47 | Outpatient (CLI) | payer MEDICARE, MEDICAID, SELFPAY ==
--- NOTE | 2021-05-09 12:47 | MM_ITS ---
PROCEDURE INFORMATION: Exam: Bilateral Screening 3D Mammography Exam date and time: 05/09/2021 12:47 PM Age: 61 years old Clinical indication: Screening mammogram TECHNIQUE: Imaging protocol: Bilateral screening tomosynthesis and 2D mammography including computer-aided detection (CAD) when performed. COMPARISON: No relevant prior studies available. FINDINGS: MAMMOGRAPHY: Breast composition: There are scattered areas of fibroglandular density. Mass: None. Architectural distortion: No new or suspicious architectural distortion. Calcifications: Calcifications within the slightly upper outer left middle 1/3 should be assessed with spot MAGNIFICATION views in CC/ML projection for morphologic characterization. Calcifications within the upper outer right middle 1/3 should be assessed with spot MAGNIFICATION views in CC/ML projection for morphologic characterization. Asymmetric density: Focal asymmetry within the upper outer posterior left breast spanning approximately 2 cm should be further assessed with spot views in CC/MLO projection to confirm and further characterize. Ultrasound should also be performed. Skin thickening: None. Axillary adenopathy: None. IMPRESSION: 1. Calcifications within the slightly upper outer left middle 1/3 should be assessed with spot MAGNIFICATION views in CC/ML projection for morphologic characterization. 2. Focal asymmetry within the upper outer posterior left breast spanning approximately 2 cm should be further assessed with spot views in CC/MLO projection to confirm and further characterize. Ultrasound should also be performed. 3. Calcifications within the upper outer right middle 1/3 should be assessed with spot MAGNIFICATION views in CC/ML projection for morphologic characterization. ASSESSMENT: BI-RADS category 0: Incomplete-need additional imaging evaluation and/or prior mammograms for comparison.
== END ==
PROVIDERS: PCP Emergency Medicine; Visit Provider Nurse Practitioner Family
DX: Z12.31 Encounter for screening mammogram for malignant neoplasm of breast (principal)
CPT/HCPCS: 77063; 77067

== ENCOUNTER → 2021-05-18 15:00 | Outpatient (CLI) | payer MEDICARE, MEDICAID, SELFPAY | PROVIDERS: PCP Emergency Medicine; Visit Provider Urology | DX: E78.2 Mixed hyperlipidemia (principal); I11.9 Hypertensive heart disease without heart failure; I25.10 Atherosclerotic heart disease of native coronary artery without angina pectoris | CPT/HCPCS: 93306 ==

== ENCOUNTER → 2021-05-23 12:30 | Outpatient (CLI) | payer MEDICARE, MEDICAID, SELFPAY ==
--- NOTE | 2021-05-23 12:34 | XR_ITS ---
PROCEDURE: XR CHEST 2V CLINICAL HISTORY: Elevated Alkaline Phosphate COMPARISON: CR XR CHEST 2V from 09/17/2019 CR XR CHEST 2V from 09/26/2019 CR XR RIBS LT MIN 3V W CXR1V from 12/20/[address] CHEST WO CON from 06/01/2020 FINDINGS: There is mild generalized cardiomegaly. The lungs are clear without infiltrates, suspicious nodules, or pleural effusions. No acute bony abnormalities. There has been previous anterior cervical fusion lower cervical spine. IMPRESSION: Mild cardiomegaly, no acute chest pathology noted Dictated by: Dr. Jarvis Tuttle MD 05/23/2021 12:49 Dr. Jarvis Tuttle MD in [place] 05/23/2021 12:49
== END ==
PROVIDERS: PCP Emergency Medicine; Visit Provider Nurse Practitioner Family
DX: R74.8 Abnormal levels of other serum enzymes (principal)
CPT/HCPCS: 71046

== ENCOUNTER → 2021-06-12 14:40 | Outpatient (CLI) | payer MEDICARE, MEDICAID, SELFPAY ==
--- NOTE | 2021-06-12 14:43 | US_ITS ---
PROCEDURE: MM DIG MAMM BI DX W/CAD Digital Breast Tomosynthesis Included CLINICAL INDICATION: abn mamm COMPARISON: MG MM DIG SCREENING MAMM BI W/CAD from 05/28/2019 MG MM DIG SCREENING MAMM BI W/CAD from 05/09/2021 US US BREAST LT COMPLETE from 06/12/2021 TECHNIQUE: Standard CC and MLO images and 3D Tomosynthesis was obtained. R2 CAD reviewed. FINDINGS: There are scattered areas of fibroglandular density Right breast: Spot compression Mag views performed the calcifications in the upper outer right breast are mostly coarse. There are however a few new calcifications compared to 05/28/2019 and some pleomorphism. Stereotactic biopsy suggested. Left breast: The calcifications in the upper outer left breast have a benign morphology and can be followed in 6 months. The area of asymmetry in the upper outer left breast appears to compress out as fibroglandular tissue. Left breast ultrasound: No cystic or solid lesions demonstrated. Nodes are present in the axilla. There is some heterogeneous fibroglandular tissue in the outer left breast. IMPRESSION: Suspicious calcifications on the right for which stereotactic directed biopsy suggested. Probably benign findings on the left. Suggest 6 month follow-up. BI-RAD Category: 4 Suspicious Abnormality-Biopsy Considered FOLLOW-UP: IMM Immediate Follow-up Recommended (A letter has been sent to the patient regarding results of the study.) Dictated by: Sen Jin MD 06/18/2021 10:57 Sen Jin MD in [place] 06/18/2021 10:57
== END ==
PROVIDERS: PCP Emergency Medicine; Visit Provider Nurse Practitioner Family
DX: R92.8 Other abnormal and inconclusive findings on diagnostic imaging of breast (principal)
CPT/HCPCS: 76641; 77062; 77066; G0279

== ENCOUNTER → 2021-06-20 11:32 | Outpatient (CLI) | payer MEDICARE, MEDICAID, SELFPAY ==
[2021-06-20 12:26] LABS: Eosinophils # 0.1 K/mm3 (0.0-0.4); Eosinophils % 2.3 % (0.1-12.0); Hematocrit 49.3 % (37.0-47.0); Hemoglobin 15.9 g/dL (12.2-16.2); Lymphocytes # 1.2 K/mm3 (0.7-4.5); Lymphocytes % 34.1 % (10-50); Mean Corpuscular HGB Conc 32.3 g/dL (31.8-35.4); Mean Corpuscular Hemoglobin 31.7 pg (27.0-31.2); Mean Corpuscular Volume 98.1 fl (81-99); Monocytes # 0.2 K/mm3 (0.1-1.0); Monocytes % 5.8 % (1.7-9.3); Neutrophils % 56.8 % (37.0-80.0); Platelet Count 148 K/mm3 (142-424); Red Blood Count 5.03 M/mm3 (4.20-5.40); Red Cell Distribution Width 14.5 % (11.5-17.5); White Blood Count 3.5 K/mm3 (4.8-10.8)
[2021-06-20 12:44] LABS: Chloride 102 mmol/L (98-107); Potassium 5.5 mmoL/L (3.5-5.1); Sodium 141 mmol/L (136-145)
[2021-06-20 12:45] LABS: INR 1.07 (0.9-1.1)
[2021-06-20 12:46] LABS: Blood Urea Nitrogen 16 mg/dl (7-17); Estimated Glomerular Filt Rate 73 ml/min (>60); GFR (African American) 89 ML/MIN (>60)
[2021-06-20 12:47] LABS: Alanine Aminotransferase 48 U/L (12-78); Albumin Level 4.2 g/dl (3.5-5.0); Albumin/Globulin Ratio 1.3 (1.1-1.8); Alkaline Phosphatase 162 U/L (38-126); Anion Gap 12.5 mEq/L (5-15); Aspartate Amino Transferase 60 U/L (14-36); Bilirubin,Total 0.9 mg/dl (0.2-1.3); Calcium 10.1 mg/dl (8.4-10.2); Carbon Dioxide 32 mmol/L (22.0-30.0); Globulin 3.3 g/dL (1.3-3.2); Glucose 368 mg/dl (74-100); Iron 135 ug/dL (37-170); Total Protein,Serum 7.5 g/dl (6.3-8.2)
[2021-06-20 12:57] LABS: Total Iron Binding Capacity 299 ug/dL (265-497)
[2021-06-20 13:23] LABS: Ferritin 96.3 ng/ml (11.1-264)
[2021-06-21 07:01] LABS: AFP, Tumor Marker 2.8 ng/mL (0.0-8.3); Hep A Ab, Total Positive (Negative); Hepatitis B Surf Ab Quant 4.9 mIU/mL (Immunity>9.9); Immunoglobulin G, Qn 1457 mg/dL (586-1602)
[2021-06-21 16:10] LABS: Actin (Smooth Muscle) Antibody 9 Units (0-19); Liver-Kidney Microsomal Ab <1.0 Units (0.0-20.0); Mitochondrial (M2) Antibody <20.0 Units (0.0-20.0)
[2021-06-22 14:10] LABS: Anti-DNA (DS) Ab Qn <1 IU/mL (0-9); Anti-Jo-1 <0.2 AI (0.0-0.9); Antichromatin Antibodies 0.2 AI (0.0-0.9); Antiscleroderma-70 Antibodies 0.3 AI (0.0-0.9); RNP Antibodies 0.2 AI (0.0-0.9); Sjogren's Anti-SS-A <0.2 AI (0.0-0.9); Sjogren's Anti-SS-B 0.2 AI (0.0-0.9)
[2021-06-24 08:37] LABS: ALT (SGPT) P5P 51 IU/L (0-40); AST (SGOT) P5P 47 IU/L (0-40); Alpha 2-Macroglobulins, Qn 363 mg/dL (110-276); Apolipoprotein A-1 147 mg/dL (116-209); Bilirubin, Total 0.4 mg/dL (0.0-1.2); Cholesterol, Total 193 mg/dL (100-199); GGT 197 IU/L (0-60); Glucose 360 mg/dL (65-99); Haptoglobin 21 mg/dL (33-346); Triglycerides 117 mg/dL (0-149)
[2021-06-25 16:10] LABS: Alpha-1-Antitrypsin 143 mg/dL (101-187)
[2021-09-12 09:40] LABS: Anti-DNA (DS) Ab Charge YES; Antinuclear Antibodies (ANA) POSITIVE; Sjogren's Anti-SS-A Ab Charge YES
[2021-09-12 09:41] LABS: Anti-Centromere B Abs Charge YES; Anti-Jo-1 Charge YES; Antichromatin Abs Charge YES; Antiscleroderma-70 Abs Charge YES; RNP Antibodies Charge YES; Sjogren's Anti-SS-B Ab Charge YES; Smith Antibodies Charge YES
== END ==
PROVIDERS: Visit Provider Physician Assistant
DX: K74.60 Unspecified cirrhosis of liver (principal); Z79.899 Other long term (current) drug therapy
CPT/HCPCS: 36415; 80053; 81256; 82103; 82104; 82105; 82728; 82784; 83540; 83550; 85025; 85610; 86038; 86225; 86235; 86255; 86256; 86376; 86706; 86708

== ENCOUNTER → 2021-06-26 19:02 | Outpatient (CLI) | payer MEDICARE, MEDICAID, SELFPAY ==
[2021-06-26 20:43] LABS: Amphetamine/Metha Screen,Urine Negative ng/ml (<1000)
[2021-06-26 20:49] LABS: Barbiturates Screen,Urine Negative ng/ml (<200)
[2021-06-26 20:50] LABS: Benzodiazepines Screen,Urine Negative ng/ml (<200); Cannabinoid Screen,Urine Negative ng/ml (<50)
[2021-06-26 20:52] LABS: Cocaine Screen,Urine Negative ng/ml (<300)
[2021-06-26 20:53] LABS: Methadone Screen,Urine Negative ng/ml (<300)
[2021-06-26 20:54] LABS: Opiate Screen,Urine Positive ng/ml (<300); Phencyclidine Screen,Urine Negative ng/ml (<25)
== END ==
PROVIDERS: Visit Provider Emergency Medicine
DX: M25.512 Pain in left shoulder (principal)
CPT/HCPCS: 80305

== ENCOUNTER → 2021-07-11 08:43 | Outpatient (CLI) | payer MEDICARE, MEDICAID, SELFPAY ==
--- NOTE | 2021-07-11 08:46 | US_ITS ---
PROCEDURE: US LIVER CLINICAL INDICATION: CIRRHOSIS OF LIVER COMPARISON: CT CT ABDOMEN PELVIS W CON from 11/20/2020 FINDINGS: PANCREAS: Unremarkable. No obvious mass or abnormal fluid collection. No ductal dilatation LIVER: There is coarse echogenicity of the liver. There is appropriate direction of blood flow within a non dilated portal vein. Common bile duct is normal. RIGHT KIDNEY: Unremarkable. Normal size and echogenicity. No hydronephrosis GALLBLADDER: Prior cholecystectomy. IMPRESSION: Coarse echogenicity of the liver which may be seen with cirrhosis. Appropriate direction of blood flow within non dilated portal vein. Dictated by: Sen Jin MD 07/11/2021 16:25 Sen Jin MD in [place] 07/11/2021 16:25
== END ==
PROVIDERS: PCP Emergency Medicine; Visit Provider Physician Assistant
DX: K74.60 Unspecified cirrhosis of liver (principal)
CPT/HCPCS: 76705

== ENCOUNTER → 2021-07-12 08:27 | Outpatient (CLI) | payer MEDICARE, MEDICAID, SELFPAY ==
--- NOTE | 2021-07-12 08:27 | MM_ITS ---
PROCEDURE: MM STEREOTACTIC LOC RT MM CLIP PLACEMENT RIGHT MM SURGICAL SPECIMEN RIGHT CLINICAL INDICATION: Suspicious calcifications on the right TECHNIQUE: The patient was given 1 mg of Xanax, Lortab 5 mg, and analgesia and minor sedation. Informed consent and time-out procedure was performed. The patient was placed on the stereotactic table and the abnormality was localized in the most appropriate projection. The right breast was prepped in the routine manner, with sterile prep and the overlying skin anesthetized. A 3 to 4 mm skin incision was performed and the 9 gauge sorus vacuum-assisted core biopsy needle was advanced to the region of the calcification. Pre- and post fire images were obtained. After adequate positioning relative to the calcifications was ensured, multiple biopsies were obtained in the region of the calcifications specifically. The core biopsies obtained were sent for specimen mammography. After the calcifications were indeed identified on the specimen mammogram, the procedure was terminated. The patient tolerated the procedure well without complications. Specimen was sent for pathologic analysis which should be forthcoming within 3 working days. Routine follow-up phone call to patient is to be performed as well. A tiny titanium nonferromagnetic MicroMark was positioned through the mammotome needle into the biopsy site. Pathology: Benign breast tissue demonstrating stromal fibrosis and focal fibroadenomatoid change with microcalcifications. Negative for atypia or malignancy. IMPRESSION: 1. Successful stereotactic vacuum-assisted core biopsy of the breast calcifications. 2. Successful placement of a titanium metal MicroMark. 3. Pathologic analysis showing benign findings. 4. No noted complications. SPECIMEN RADIOGRAPH: The mammographically evident calcifications from the prior study are currently evident within the Alexis dish and within the specimens obtained during mammotome procedure. This is considered an adequate specimen and the procedure was terminated. IMPRESSION: Successful removal of described breast calcifications. BREAST MAMMOGRAM: Compared to the prior study, the previously noted calcification have been removed. A small MicroMark clip was inserted into the region of the calcifications. There is evidence of soft tissue changes in the region of the biopsy was soft tissue gas and edema. 5. Adequate placement of the MicroMark clip postbiopsy. 6. Postbiopsy changes within the breast. Dictated by: Sen Jin MD 07/27/2021 09:35 Sen Jin MD in [place] 07/27/2021 09:35
== END ==
PROVIDERS: PCP Emergency Medicine; Visit Provider Emergency Medicine
DX: R92.1 Mammographic calcification found on diagnostic imaging of breast (principal); R92.8 Other abnormal and inconclusive findings on diagnostic imaging of breast
CPT/HCPCS: 19081; 76098; 77065; 88305

== ENCOUNTER 2021-07-22 20:34 | Emergency (ER) | payer MEDICARE, MEDICAID, SELFPAY ==
[2021-07-22 20:35] VITALS: BP 149/90; PULSE 91; RESP 17; TEMP 37; O2SAT 96; BMI 29.2
--- NOTE | 2021-07-22 20:50 | XR_ITS ---
PROCEDURE INFORMATION: Exam: XR Left Foot Exam date and time: 07/22/2021 8:50 PM Age: 61 years old Clinical indication: Other: Bruising left 2nd toe; Patient HX: No known trauma; Additional info: Bruise to left 2nd toe TECHNIQUE: Imaging protocol: XR Left foot. Views: 3 or more views. COMPARISON: No relevant prior studies available. FINDINGS: Bones/joints: Enthesophyte at the Achilles tendon insertion. Moderate calcaneal spur. Limited evaluation of the phalanges, particularly rays 2 through 5, secondary to patient positioning. No visualized acute fracture or dislocation. Soft tissues: No radiopaque foreign body. IMPRESSION: Limited examination without visualized acute findings.
--- NOTE | 2021-07-22 20:51 | HMH.EDUTC ---
[facility] Disposition Clinical Impression: Cellulitis Qualifiers: Site of cellulitis: extremity Site of cellulitis of extremity: toe Laterality: left Qualified Code(s): L03.032 - Cellulitis of left toe Disposition: Home, Self-Care Condition on Discharge: Good Instructions: DI for Cellulitis -- Adult Additional Instructions: follow up with pcp this week follow up with Dr Ramon this week if worsen return or be seen in ed Prescriptions: cephALEXin [Cephalexin 500mg Tab] 500 mg PO BID 7 Days #14 tab Transmission Status: Pending to [facility] #[id number] Referrals: Larry Bedolla MD [Primary Care Provider] - Sara Ramon DPM [Staff Physician] - Time of Disposition: 21:16 Medical Decision Making - Billy Inquiry Pt receiving controlled substance: No Vital Signs: 07/22/21 20:35 Temperature 98.6 F Temperature Source Oral Pulse Rate [Right Brachial] 91 H Respiratory Rate 17 Blood Pressure [Right Arm] 149/90 H Blood Pressure Mean [Right Arm] 109 Blood Pressure Source [Right Arm] Automatic Cuff Blood Pressure Position [Right Arm] Sitting 02 Sat by Pulse Oximetry 96 Oxygen Delivery Method Room Air Orders (Tests/Meds): ORDERS Category Date Time Status XR foot LT min 3V Stat Exams 07/22/21 20:50 Ordered - Radiology Data #1 Image(s): Foot/Toes Preliminary Findings: No Fracture Seen [facility] HPI - General Chief complaint: Urgent [facility] Stated complaint: L foot, 2nd toe red and swollen Time Seen by Provider: 07/22/21 20:51 Mode of Arrival: Ambulatory Source of Information: Patient Limitations: No Limitations Description of Symptoms (Recalled from Triage Doc. by RN): PATIENT C/O REDNESS AND SWELLING TO LEFT SECOND TOE SINCE THIS AFTERNOON HEENT Symptoms (Recalled from RN notes): No Resp Symptoms (Recalled from RN notes): No Skin Symptoms (Recalled from RN notes): No MS Symptoms (Recalled from RN notes): Yes Functional Status (Recalled from RN notes): WNL - History of Present Illness Provider Complaint: 61 yr old female presents for bruising/redness to left 2nd toe and top of 3rd toe since this afternoon, pt states it is not sore and she does not remember injuring it. does have dm - Related Data Home Medications Medication Instructions Recorded Confirmed cyclobenzaprine 10 mg tablet 10 mg PO TIDP PRN 30 Days #90 tab 06/24/18 06/26/21 Aspirin [Low Dose Aspirin EC] 81 mg PO HS 06/14/19 06/26/21 Atorvastatin Calcium [Lipitor 40mg 40 mg PO HS 06/14/19 06/26/21 Tablet*] Nabumetone 750 mg PO BID 01/19/20 06/26/21 insulin lispro protamine-lispro 63 unit SQ TID ml 11/13/20 06/26/21 100 unit/mL (75-25) subcutaneous pen Clopidogrel Bisulfate [Plavix] See Rx Instructions .ROUTE .COMPLEX 12/19/20 06/26/21 Fluticasone Propionate [Flonase 1 spr NS DAILY 12/19/20 06/26/21 50mcg nasal spray 16gm] Previous Rx's Medication Instructions Recorded isosorbide mononitrate 60 mg 90 mg PO DAILY #90 tab 06/19/20 tablet,extended release 24 hr lisinopril 10 mg tablet 10 mg PO DAILY #90 tab 07/03/20 Mupirocin [Bactroban 2% Ointment 1 applicatio TP TID 7 Days #1 tube 02/25/21 22gm tube] metformin 500 mg tablet,extended See Rx Instructions .ROUTE 02/27/21 release 24 hr .COMPLEX #360 tablet insulin glargine 100 unit/mL (3 20 unit SQ DAILY #15 ml 03/08/21 mL) subcutaneous pen bisoprolol fumarate 10 mg tablet 10 mg PO BID #60 tab 03/29/21 ranolazine 1,000 mg See Rx Instructions .ROUTE 03/29/21 tablet,extended release,12 hr .COMPLEX #60 tab flash glucose scanning reader See Rx Instructions MISCELLANE 04/23/21 .MEDSUPPLY #1 each flash glucose sensor See Rx Instructions .MEDSUPPLY #2 04/23/21 each ergocalciferol (vitamin D2) 1,250 50,000 unit PO QWEEK #7 cap 04/28/21 mcg (50,000 unit) capsule blood-glucose meter See Rx Instructions MISCELLANE 05/01/21 .MEDSUPPLY #1 each hydroxyzine pamoate 50 mg capsule 50 mg PO HS PRN #30 cap 05/15/21 vortioxetine 20 mg tablet 20 mg PO
[2021-07-22 21:14] VITALS: BP 149/90; PULSE 91; RESP 17; TEMP 37; O2SAT 96
== END 2021-07-22 21:18 | disposition home or self-care (01) ==
PROVIDERS: Emergency Provider Nurse Practitioner Family; PCP Emergency Medicine
DX: L03.032 Cellulitis of left toe (principal); F41.8 Other specified anxiety disorders; E78.5 Hyperlipidemia, unspecified; I25.2 Old myocardial infarction; I10 Essential (primary) hypertension; I25.10 Atherosclerotic heart disease of native coronary artery without angina pectoris
CPT/HCPCS: G0463; 73630; 99202

== ENCOUNTER 2021-08-19 12:59 | Emergency (ER) | payer MEDICARE, MEDICAID, SELFPAY ==
[2021-08-19 14:46] VITALS: BP 110/73; PULSE 98; RESP 18; TEMP 36.8; O2SAT 98; BMI 28.5
[2021-08-19 14:51] VITALS: BP 110/73; PULSE 98; RESP 18; TEMP 36.8; O2SAT 98
--- NOTE | 2021-08-19 14:53 | HMH.EDUTC ---
[facility] [place] Disposition Clinical Impression: Encounter for laboratory testing for COVID-19 virus, Viral syndrome Disposition: Home, Self-Care Condition on Discharge: Good Instructions: DI for COVID-19 (Suspected or Confirmed ), DI for Viral Upper Respiratory Infection -- Adult Additional Instructions: *Monitor Temp, Over the counter Motrin or Tylenol as directed/as needed Tylenol every 4 hours and Motrin every 6 hours (as long as your family doctor has told you that you can take it) for fever or pain. and straight to ER if unable to lower temp less than 101.0 after medication given *Warm salt water gargles may help to soothe the throat *Throat Lozenges *Warm fluids like tea with honey may help to soothe the throat *Sleep elevated *Humidifier/Vaporizer Follow up IMMEDIATELY for new or worsening symptoms or no Noticeable improvement over the next 48-72 hours. 911 for difficulty breathing or swallowing You were tested for today for COVID19 your test result should be back in the next 24-48 hours, you may check your results on the [facility] [employer] [facility] Portal if you have trouble logging on you may call [employer] support for assistance You was given a handout with instructions for Self Quarantine and Self isolation for while you wait on test results and what to do if they are positive If you are positive the Health Dept will be contacting you also Make sure to take your Vitamins Vit. C Vit D and Zinc if you can take them Referrals: Larry Bedolla MD [Primary Care Provider] - As needed Time of Disposition: 14:56 Medical Decision Making - Billy Inquiry Pt receiving controlled substance: No Billy was queried for this patient: No Vital Signs: 08/19/21 14:46 08/19/21 14:51 Temperature 98.2 F 98.2 F Temperature Source Oral Oral Pulse Rate 98 H Pulse Rate [Left Radial] 98 H Respiratory Rate 18 18 Blood Pressure 110/73 Blood Pressure [Right Arm] 110/73 Blood Pressure Mean [Right Arm] 85 Blood Pressure Source [Right Arm] Automatic Cuff Blood Pressure Position [Right Arm] Sitting 02 Sat by Pulse Oximetry 98 Oxygen Delivery Method Room Air Nasal Cannula Orders (Tests/Meds): ORDERS Category Date Time Status Covid-19 Nasal PCR ([facility]) Routine Lab 08/19/21 14:51 Ordered [facility] [place] HPI - General Stated complaint: h/a, weakness, congestion Time Seen by Provider: 08/19/21 14:53 Mode of Arrival: Ambulatory Source of Information: Patient Limitations: No Limitations Description of Symptoms (Recalled from Triage Doc. by RN): sore throat, tired, soa and no appetite for one week HEENT Symptoms (Recalled from RN notes): Yes Resp Symptoms (Recalled from RN notes): Yes (soa) Skin Symptoms (Recalled from RN notes): No MS Symptoms (Recalled from RN notes): No Functional Status (Recalled from RN notes): na - History of Present Illness Provider Complaint: Patient states that she hasnt felt well for about a week State that she has been having some nasal congestion, scratchy throat and feeling achy and tired States that she hasnt been around anyone that she knows of with COVID but came in wanting to get tested - Related Data Home Medications Medication Instructions Recorded Confirmed cyclobenzaprine 10 mg tablet 10 mg PO TIDP PRN 30 Days #90 tab 06/24/18 07/23/21 Aspirin [Low Dose Aspirin EC] 81 mg PO HS 06/14/19 07/23/21 Atorvastatin Calcium [Lipitor 40mg 40 mg PO HS 06/14/19 07/23/21 Tablet*] Nabumetone 750 mg PO BID 01/19/20 07/23/21 insulin lispro protamine-lispro 63 unit SQ TID ml 11/13/20 07/23/21 100 unit/mL (75-25) subcutaneous pen Clopidogrel Bisulfate [Plavix] See Rx Instructions .ROUTE .COMPLEX 12/19/20 07/23/21 Fluticasone Propionate [Flonase 1 spr NS DAILY 12/19/20 07/23/21 50mcg nasal spray 16gm] Previous Rx's Medication Instructions Recorded lisinopril 10 mg tablet 10 mg PO DAILY #90 tab 07/03/20 Mupirocin [Bactroban 2% Ointment 1 applicatio TP TID 7 Days #1 tube 02/25/21 22gm tube] me
== END 2021-08-19 15:04 | disposition home or self-care (01) ==
PROVIDERS: Emergency Provider Nurse Practitioner; PCP Emergency Medicine
DX: U07.1 COVID-19 (principal); F41.8 Other specified anxiety disorders; E11.9 Type 2 diabetes mellitus without complications
CPT/HCPCS: G0463; 99202; C9803; U0003; U0005

== ENCOUNTER → 2021-08-28 13:47 | Outpatient (CLI) | payer MEDICARE, MEDICAID, SELFPAY ==
[2021-08-28 14:45] LABS: Barbiturates Screen,Urine Negative ng/ml (<200)
[2021-08-28 14:46] LABS: Amphetamine/Metha Screen,Urine Negative ng/ml (<1000); Benzodiazepines Screen,Urine Negative ng/ml (<200)
[2021-08-28 14:47] LABS: Cannabinoid Screen,Urine Negative ng/ml (<50); Cocaine Screen,Urine Negative ng/ml (<300)
[2021-08-28 14:48] LABS: Methadone Screen,Urine Negative ng/ml (<300)
[2021-08-28 14:49] LABS: Opiate Screen,Urine Positive ng/ml (<300); Phencyclidine Screen,Urine Negative ng/ml (<25)
== END ==
PROVIDERS: Visit Provider Emergency Medicine
DX: M25.512 Pain in left shoulder (principal)
CPT/HCPCS: 80305

== ENCOUNTER → 2021-10-15 07:55 | Outpatient (CLI) | payer MEDICARE, MEDICAID, SELFPAY ==
--- NOTE | 2021-10-15 07:59 | MR_ITS ---
FINAL REPORT TECHNIQUE: Multiplanar MR imaging of the abdomen was obtained without contrast. CLINICAL HISTORY: HEPATIC FIBROSIS, STAGE 3. ANTICENTROMERE ANTIBODIES PRESENT. POSITIVE JEANA. BILIOUS VOMITING WITH NAUSEA. FINDINGS: No prior exam is available for comparison. Clinical question is not entirely clear. Liver is enlarged measuring 19 cm in craniocaudad dimension but homogeneous and without focal lesion identified. There is decreased signal in the melissa hepatis and the expected course of the common bile duct which may be related to stent or air within the biliary system. Gallbladder appears to be surgically absent. Spleen is at the upper limits of normal in size. Remaining solid abdominal organs are without acute abnormality. IMPRESSION: Mildly enlarged liver. Decreased signal in the melissa hepatis and expected course of the common bile duct which may be related to stent or air within the biliary system. Reviewed, Interpreted and Dictated by Dre Keenan MD Transcribed by Esha Piedra Authenticated by Dre Keenan MD on 10/15/2021 10:42:50 AM [facility]
== END ==
PROVIDERS: PCP Emergency Medicine; Visit Provider Physician Assistant
DX: K74.02 Hepatic fibrosis, advanced fibrosis (principal); R76.8 Other specified abnormal immunological findings in serum; R11.14 Bilious vomiting
CPT/HCPCS: 74181; 76376

== ENCOUNTER 2021-10-17 11:47 | Observation (INO) | payer MEDICARE, MEDICAID, SELFPAY ==
[2021-10-17] VITALS (19 sets, daily range): BP systolic 161–201; BP diastolic 81–111; PULSE 85–107; RESP 12–32; TEMP 36.7–36.9; O2SAT 91–98; BMI 29.7
--- NOTE | 2021-10-17 11:41 | ECG_ITS ---
APPROVED REPORT Exam: Resting ECG HR:106 bpm ECG Measurements Heart Rate 106 AXES MD 149 P 48 QRSd 93 QRS -7 QT 358 T 81 QTc 420 Conclusion SINUS TACHYCARDIA NONSPECIFIC T-WAVE ABNORMALITY ABNORMAL RHYTHM ECG UNCONFIRMED REPORT Electronically signed by : Jaylen Escudero MD 10/17/2021 18:11:53
--- NOTE | 2021-10-17 11:53 | XR_ITS ---
FINAL REPORT CLINICAL HISTORY: chest pain COMPARISON: May 23, 2021 FINDINGS: The heart size is at the upper limits of normal. The mediastinum is normal. The lungs are underinflated. There is no focal infiltrate or edema. There are no pleural effusions. There is no pneumothorax. There is cervical fusion hardware in the lower cervical spine. IMPRESSION: No acute cardiopulmonary process Reviewed, Interpreted and Dictated by Dre Keenan MD Transcribed by Rigoberto Jain Authenticated by Dre Keenan MD on 10/17/2021 02:03:44 PM [facility]
[2021-10-17 12:10] LABS: Basophils % 1.5 % (0.1-2.0); Eosinophils # 0.1 K/mm3 (0.0-0.4); Eosinophils % 1.8 % (0.1-12.0); Hematocrit 41.9 % (37.0-47.0); Lymphocytes # 0.9 K/mm3 (0.7-4.5); Lymphocytes % 30.3 % (10-50); Mean Corpuscular Hemoglobin 32.3 pg (27.0-31.2); Mean Corpuscular Volume 104.2 fl (81-99); Mean Platelet Volume 9.7 fl (7.4-10.4); Monocytes # 0.2 K/mm3 (0.1-1.0); Neutrophils # 1.9 K/mm3 (1.8-7.8); Neutrophils % 61.4 % (37.0-80.0); Platelet Count 108 K/mm3 (142-424); Red Blood Count 4.02 M/mm3 (4.20-5.40); Red Cell Distribution Width 15.6 % (11.5-17.5)
[2021-10-17 12:11] LABS: Chloride 107 mmol/L (98-107); Potassium 4.7 mmoL/L (3.5-5.1); Sodium 139 mmol/L (136-145)
[2021-10-17 12:14] LABS: Anion Gap 8.7 mEq/L (5-15); Blood Urea Nitrogen 15 mg/dl (7-17); Calcium 8.1 mg/dl (8.4-10.2); Carbon Dioxide 28 mmol/L (22.0-30.0); Creatinine Clearance Estimated 114 mL/min (50-200); Estimated Glomerular Filt Rate 86 ml/min (>60); GFR (African American) 104 ML/MIN (>60); Glucose 271 mg/dl (74-100)
[2021-10-17 12:27] LABS: Troponin I < 0.01 ng/ml (0.00-0.034)
--- NOTE | 2021-10-17 15:00 | HMH.EDGENADL ---
ED Disposition Clinical Impression: Unstable angina, Uncontrolled hypertension Disposition: Admitted as Observation Condition on Discharge: Good - Critical Care Critical Care Time: No Attestation: On 10/17/21, the high probability of a clinically significant, sudden or life threatening deterioration of the following system(s) required my full and direct attention, intervention and personal management. The time I documented below is in addition to time spent performing reported procedures but includes the following listed in this critical care notation. Medical Decision Making - Medical Records Medical records reviewed: Yes: I reviewed the patient's medical records. MR Comment: Reviewed most recent heart cath results, see below - Billy Inquiry Pt receiving controlled substance: No Vital Signs: 10/17/21 11:47 10/17/21 12:01 10/17/21 12:31 Temperature 98.1 F Temperature Source Oral Pulse Rate 103 H 103 H Pulse Rate [Right Radial] 107 H Respiratory Rate 16 32 H 23 Blood Pressure 185/95 H 172/88 H Blood Pressure [Right Arm] 192/107 H Blood Pressure Mean 125 118 Blood Pressure Mean [Right Arm] 135 Blood Pressure Source [Right Arm] Automatic Cuff Blood Pressure Position [Right Arm] Sitting 02 Sat by Pulse Oximetry 98 95 96 Oxygen Delivery Method Room Air 10/17/21 13:00 10/17/21 13:30 10/17/21 13:51 Temperature Temperature Source Pulse Rate 105 H 106 H Pulse Rate [Right Radial] Respiratory Rate 14 16 Blood Pressure 173/94 H 191/102 H 173/81 H Blood Pressure [Right Arm] Blood Pressure Mean 111 131 119 Blood Pressure Mean [Right Arm] Blood Pressure Source [Right Arm] Blood Pressure Position [Right Arm] 02 Sat by Pulse Oximetry 91 L 94 L Oxygen Delivery Method 10/17/21 14:00 10/17/21 14:31 10/17/21 15:01 Temperature Temperature Source Pulse Rate 92 H 93 H 92 H Pulse Rate [Right Radial] Respiratory Rate 20 20 19 Blood Pressure 172/90 H 170/90 H 173/87 H Blood Pressure [Right Arm] Blood Pressure Mean 118 116 108 Blood Pressure Mean [Right Arm] Blood Pressure Source [Right Arm] Blood Pressure Position [Right Arm] 02 Sat by Pulse Oximetry 97 96 97 Oxygen Delivery Method 10/17/21 15:30 10/17/21 16:06 10/17/21 16:31 Temperature Temperature Source Pulse Rate 104 H 100 H 99 H Pulse Rate [Right Radial] Respiratory Rate 24 19 18 Blood Pressure 200/111 H 193/103 H 182/99 H Blood Pressure [Right Arm] Blood Pressure Mean 124 130 126 Blood Pressure Mean [Right Arm] Blood Pressure Source [Right Arm] Blood Pressure Position [Right Arm] 02 Sat by Pulse Oximetry 97 97 97 Oxygen Delivery Method 10/17/21 17:01 10/17/21 17:13 10/17/21 18:10 Temperature Temperature Source Pulse Rate 100 H 103 H 99 H Pulse Rate [Right Radial] Respiratory Rate 13 12 16 Blood Pressure 194/100 H 201/109 H 170/93 H Blood Pressure [Right Arm] Blood Pressure Mean 128 122 119 Blood Pressure Mean [Right Arm] Blood Pressure Source [Right Arm] Blood Pressure Position [Right Arm] 02 Sat by Pulse Oximetry 98 98 97 Oxygen Delivery Method Room Air 10/17/21 18:30 10/17/21 19:00 10/17/21 19:45 Temperature 98.4 F Temperature Source Oral Pulse Rate 103 H 99 H 85 Pulse Rate [Right Radial] Respiratory Rate 18 16 20 Blood Pressure 162/84 H 161/87 H 162/87 H Blood Pressure [Right Arm] Blood Pressure Mean 110 106 Blood Pressure Mean [Right Arm] Blood Pressure Source [Right Arm] Blood Pressure Position [Right Arm] 02 Sat by Pulse Oximetry 97 95 Oxygen Delivery Method Room Air Room Air Room Air - Lab Data Lab Results 10/17/21 11:45: WBC 3.0 L, RBC 4.02 L, Hgb 13.0, Hct 41.9, MCV 104.2 H, MCH 32.3 H, MCHC 31.0 L, RDW 15.6, Plt Count 108 L, MPV 9.7, Neut % (Auto) 61.4, Lymph % (Auto) 30.3, Cobb % (Auto) 5.0, Eos % (Auto) 1.8, Baso % (Auto) 1.5, Neut # (Auto) 1.9, Lymph # (Auto) 0.9, Cobb # (Au
--- NOTE | 2021-10-17 15:21 | HMH.CNCARD ---
History of Present Illness Consult date: 10/17/21 Requesting physician: Larry Bedolla Consult reason: chest pain Chief complaint: chest pain Additional Medical History:: 1. Diabetes mellitus, insulin-dependent 2. Hypertension 3. Hyperlipidemia 4. Coronary artery disease A. SOPHIE to LAD and Ramus, 2015 B. SOPHIE to PDA, [address] [facility] 2018 : ANGIOGRAPHIC RESULTS: 1. The left main artery normal 2. The left anterior descending artery has a stent in the proximal segment which is widely patent free of in-stent restenosis with excellent distal and proximal transitioning. A mild 10-20% stenosis is present distal to the stent and proximal to the first diagonal artery. The distal LAD has 40% long concentric stenoses at an area less than 2 mm in diameter. 3. The ramus intermedius is a moderate size vessel and has stents in the proximal segment which have mild 20-30% in-stent restenosis 4. The circumflex artery is a nondominant vessel which has mild 10-20% ostial stenosis. The first and second obtuse marginal artery are small and medium-sized vessels. The first obtuse marginal artery has 20-30% proximal stenosis where the vessel is 1.5 mm in diameter where as the second obtuse marginal artery is 2 mm in diameter and has proximal to mid vessel 40% stenoses 5. The right coronary artery is a dominant vessel and has an ostial 20% smooth stenosis with mild vascular ectasia through the proximal to mid segment. The distal vessel has a stent which bifurcates into a large posterior descending artery and posterior lateral ventricular branch. The posterior descending artery has 20 and 30% stenoses. The distal portion of the posterior lateral ventricular branch has a 90% stenosis immediately proximal to a bifurcating vessel where each vessel is 1.5 to 2 mm in diameter. Each vessel has an ostial 90% stenosis however is patent with SHAKIRA III flow 6. The HIDALGO ventriculogram reveals preserved 60% 7. The left ventricular end-diastolic pressure 15 mmHg IMPRESSION: 1. Coronary artery disease as described above 2. Preserved ejection fraction 3. Mildly elevated LVEDP Plan: Medical therapy recommended. Reconsider stenting if recalcitrant angina. 5. Family history of coronary artery disease in her brother 6. EGD/Colonoscopy, 01/2020 A. EGD, Gastroesophageal junction at 39 cm, Streaking gastritis, Focal severe inflammation of mid gastric body Exceedingly poor bowel preparation (rectal vault/anal canal with large amount of firm formed stool) B. Colonoscopy, Bowel preparation moderate (dramatically improved versus prior evaluation), Hemorrhoidal tag/cushions, Fairly severe tortuosity of sigmoid colon, Severe lack of relaxation throughout colon, Adjacent polyps of mid transverse colon C. Repeat EGD/Colon, 12/2020, no significant findings. History of present illness: States she has had intermittent chest pain since Friday evening 2 days ago. Episodes last about 30 minutes. Associated with clamminess and nausea. The first episode was associated with shortness of breath, but none since. She also has some swelling of her legs for the past few days. She has known coronary artery disease has multiple stents. Current pain does feel similar to her previous cardiac pain. She thinks her last heart cath was last year or the year before and she thinks she got a stent at that time. The above per Dr. Barlow Patient confirms intermittent, progressive chest discomfort since Friday evening with the last episode of chest pain since she has been in the ER. Initial troponin is normal and EKG is sinus with no acute ST segment changes. Patient is a long-term diabetic with known coronary disease and prior stenting with last stent in 2017 but last cardiac cath was 2018 with small vessel disease and recommendation for medical therapy. Lower extremity edema noted over the last few days as well but denies any change in her diet. Cardiology consulted for
[2021-10-17 15:52] LABS: Troponin I < 0.01 ng/ml (0.00-0.034)
[2021-10-17 16:15] LABS: POC Glucose,Bedside 77 (70-110)
--- NOTE | 2021-10-17 16:16 | HMH.HP ---
*Admission Date: 10/17/21 *Chief complaint: Chest Pain *History of present illness: States she has had intermittent chest pain since Friday evening 2 days ago. Episodes last about 30 minutes. Associated with clamminess and nausea. The first episode was associated with shortness of breath, but none since. She also has some swelling of her legs for the past few days. She has known coronary artery disease has multiple stents. Current pain does feel similar to her previous cardiac pain. She thinks her last heart cath was last year or the year before and she thinks she got a stent at that time. (Per Dr. Barlow). Patient confirms intermittent, progressive chest discomfort since Friday evening with the last episode of chest pain since she has been in the ER. Initial troponin is normal and EKG is sinus with no acute ST segment changes. Patient is a long-term diabetic with known coronary disease and prior stenting with last stent in 2017 but last cardiac cath was 2018 with small vessel disease and recommendation for medical therapy. Lower extremity edema noted over the last few days as well but denies any change in her diet. Cardiology consulted for evaluation recommendations. Blood pressure in the ER is 190 mmHg systolic. She denies missing any doses of her medications. She was given half inch Nitropaste along with Norvasc 10 mg x 1. [facility] History I have reviewed the patient's past medical history: Yes Medical History: Reports:: Anxiety, Coronary Artery Disease, Depression, Diabetes Mellitus Type 2, Hyperlipidemia, Hypertension, Myocardial Infarction Denies:: Cancer, Diabetes Mellitus Type 1, Internal Pacemaker, MRSA, Seizures *Have you ever received a pneumonia vaccine?: No *Have you received a flu vaccine this season?: Yes Other Medical History: Denies: Blood Transfusion Reaction Laterality Cases: Bilateral: Other Other Surgeries: Yes: No Previous Surgery, Angiogram, Angioplasty, Cardiac Catheterization, Cardiac Surgery, Cholecystectomy, Colonoscopy, Coronary Stent, Dilation and Curettage, EGD, Other. No: Pacemaker Amputation: No Fractures: No - *Social History Smoking Status: Never smoker # Packs/Day (cigarettes): 1 Alcohol Intake: never Alcohol Intake Frequency:: other Substance Use Type: denies use *Occupational Status:: disabled Housing: house Household Members: none *Travel in the last 8 weeks: Inside the [place] - Psychiatric History Pschychiatric History:: Reports:: Anxiety, Depression Family Hx:: Cancer, Diabetes Review of Systems - Review of Systems Review of systems:: pertinent systems reviewed and negative unless documented below - Constitutional Denies anorexia, Denies fever(s) - Eyes Denies blurry vision, Denies double vision - ENT Denies dental pain, Denies sinus pressure - *Cardiovascular Reports chest pain, Reports chest pain at rest, Reports chest pain with activity, Reports shortness of breath, Reports shortness of breath with activity, Reports leg swelling - *Respiratory Reports shortness of breath, Reports shortness of breath with activity - *Gastrointestinal Denies abdominal pain, Denies difficulty swallowing - *Musculoskeletal Denies limited joint movement, Denies muscle weakness - Integumentary/Breasts Denies change in skin color, Denies sensitivity to light - *Neurologic Denies abnormal walking, Denies seizure-like activity - Psychiatric Denies anxiety, Denies change in appetite - Endocrine Denies cold intolerance, Denies excessive sweating - Hematologic/Lymphatic Denies easy bruising, Denies enlarged lymph nodes - Allergic/Immunologic Denies lip swelling, Denies throat swelling Meds Home Medications Medication Instructions Recorded Confirmed Type Aspirin [Low Dose Aspirin EC] 81 mg PO HS 06/14/19 10/17/21 History Atorvastatin Calcium [Lipitor 40mg 40 mg PO HS 06/14/19 08/28/21 History Tablet*] Clopidogrel Bisulfate [Plavix] See Rx Instructio
--- NOTE | 2021-10-17 16:45 | PC.NURSE ---
Gave patient a turkey sandwich. Patient's sugar is 77.
--- NOTE | 2021-10-17 16:46 | PC.NURSE ---
HIRO OROZCO speaking with Dr. Bedolla
--- NOTE | 2021-10-17 16:50 | PC.NURSE ---
supervisor wool shearing has been called.
[2021-10-17 16:55] LABS: Coronavirus 19, PCR Not Detected (NotDetected); Influenza A, PCR Not Detected (NotDetected); Influenza B, PCR Not Detected (NotDetected)
--- NOTE | 2021-10-17 16:58 | PC.NURSE ---
per retail warehouse supervisor pt will boarding in ER until shift change notified pt of POC
--- NOTE | 2021-10-17 18:10 | PC.NURSE ---
Rounded on pt at this time. No new needs.
--- NOTE | 2021-10-17 19:45 | PC.NURSE ---
report called to brittney nelson on second floor at this time, states she will send staff down to transport pt.
--- NOTE | 2021-10-17 20:18 | PC.NURSE ---
patient up to floor via wheelchair @ this time.
[2021-10-17 20:55] LABS: Troponin I < 0.01 ng/ml (0.00-0.034)
[2021-10-17 21:08] LABS: POC Glucose,Bedside 111 (70-110)
--- NOTE | 2021-10-17 22:35 | P.CONPHA_ITS ---
[facility] Pharmacy VTE Monitoring - Patient Demographics Admission date: 10/17/21 Report Date: 10/17/21 Time: 22:35 Allergies/Adverse Reactions: Patient Allergies No Known Allergies Allergy (Verified 08/28/21 10:30) Height: 1.68 m Weight: 83.461 kg Patient Problems: Current Active Problems Uncontrolled hypertension (Acute) History of coronary artery stent placement (Acute) Thrombocytopenia (Acute) Sinus tachycardia (Acute) Unstable angina (Acute) CAD (coronary artery disease) (Chronic) Diabetes (Chronic) - VTE Risk Labs: VTE Related Lab Results Hgb 13.0 g/dL (12.2-16.2) 10/17/21 11:45 Hct 41.9 % (37.0-47.0) 10/17/21 11:45 Plt Count 108 K/mm3 (142-424) L 10/17/21 11:45 BUN 15 mg/dl (7-17) 10/17/21 11:45 Creatinine 0.70 mg/dl (0.52-1.04) 10/17/21 11:45 Estimated Creat Clear 114 mL/min (50-200) 10/17/21 11:45 Clinical Trial Participant: No - Prophylaxis VTE Prophylaxis Ordered?: Yes Types of VTE Prophylaxis: TEDS Knee High
[2021-10-18] VITALS (19 sets, daily range): BP systolic 100–159; BP diastolic 45–82; PULSE 66–83; RESP 16–18; TEMP 36.6–36.9; O2SAT 92–99; BMI 29.5
--- NOTE | 2021-10-18 | IR_ITS ---
APPROVED REPORT Patient Location: Inpatient Mechanical Meter Tester: ANJEL Hermosillo RT (R) PROCEDURES Left heart catheterization Left ventriculogram Selective coronary angiogram Bilateral selective renal angiography INDICATION Progressive angina pectoris, Known coronary artery disease, Malignant hypertension suspect renal artery stenosis with renovascular hypertension Informed consent was obtained prior to the procedure. COMPLICATIONS None Estimated Blood Loss: Less than 10 mls TECHNIQUE One percent lidocaine used to anesthetize the right anterior aspect of the wrist. The right radial artery was accessed via the Seldinger technique. A 6 Sinhala sheath was placed in the right radial artery. 2.5 mg of verapamil, 800 mcg of nitroglycerin, 1mg Lidocaine and 5000 U Heparin were given through the arterial sheath. The papa catheter was also used to perform left heart catheterization, left ventriculogram and selective coronary angiogram. The Poppa catheter was used to perform bilateral selective angiography at the end of the procedure the sheath was removed good hemostasis was achieved using Traclet band, patient was transferred to the postop holding area in stable condition. ANGIOGRAPHIC RESULTS The left main artery Normal The left anterior descending artery Has a stent in the proximal segment which is widely patent with minimal in-stent restenosis and excellent proximal distal transitioning. The distal LAD is small caliber and has diffuse small vessel vasculopathy. First diagonal artery bifurcates off the proximal LAD and has a stent in the ostial proximal segment which is widely patent with minimal in-stent restenosis The circumflex artery Is a nondominant vessel and has an ostial 20% stenosis. The first and second obtuse marginal arteries are small in caliber and consistent with diffuse hypertensive vasculopathy The right coronary artery Is a dominant vessel and has mild proximal mid vessel distal luminal irregularities. A large posterior lateral branch has a stent in the ostial proximal segment which has mild concentric in-stent restenosis and an ostial 30 to 40% stenosis. A large posterior descending artery has a stent in the proximal segment which is widely patent with mild concentric in-stent restenosis The HIDALGO ventriculogram reveals Not performed The left ventricular end-diastolic pressure Not measured Right renal artery singular normal Left renal artery has a dual arterial supply with both arteries being normal IMPRESSION Patent coronary arteries as described above Normal renal arteries Diffuse hypertensive vasculopathy PLAN 1. Medical management for essential hypertension 2. Medical management for coronary disease 3. Aggressive risk factor modification Electronically signed by : Osorio Phelps MD 10/18/2021 14:56:02
[2021-10-18 06:44] LABS: Basophils % 0.3 % (0.1-2.0); Eosinophils # 0.1 K/mm3 (0.0-0.4); Eosinophils % 2.9 % (0.1-12.0); Hematocrit 39.9 % (37.0-47.0); Hemoglobin 12.7 g/dL (12.2-16.2); Lymphocytes # 1.3 K/mm3 (0.7-4.5); Lymphocytes % 31.7 % (10-50); Mean Corpuscular HGB Conc 31.9 g/dL (31.8-35.4); Mean Corpuscular Hemoglobin 31.7 pg (27.0-31.2); Mean Corpuscular Volume 99.2 fl (81-99); Mean Platelet Volume 9.6 fl (7.4-10.4); Monocytes # 0.3 K/mm3 (0.1-1.0); Monocytes % 7.2 % (1.7-9.3); Neutrophils # 2.3 K/mm3 (1.8-7.8); Neutrophils % 57.9 % (37.0-80.0); Platelet Count 122 K/mm3 (142-424); Red Blood Count 4.02 M/mm3 (4.20-5.40); Red Cell Distribution Width 15.7 % (11.5-17.5)
[2021-10-18 06:50] LABS: POC Glucose,Bedside 142 (70-110)
[2021-10-18 06:54] LABS: Anion Gap 7.9 mEq/L (5-15); Blood Urea Nitrogen 17 mg/dl (7-17); Calcium 8.8 mg/dl (8.4-10.2); Carbon Dioxide 32 mmol/L (22.0-30.0); Chloride 106 mmol/L (98-107); Creatinine Clearance Estimated 100 mL/min (50-200); Estimated Glomerular Filt Rate 73 ml/min (>60); GFR (African American) 89 ML/MIN (>60); Glucose 146 mg/dl (74-100); Potassium 3.9 mmoL/L (3.5-5.1); Sodium 142 mmol/L (136-145)
--- NOTE | 2021-10-18 07:00 | CA_ITS ---
APPROVED REPORT EXAM: Comprehensive 2D, Doppler, and color-flow Echocardiogram Solderer Barrel Ribs: Rhoda Veronica CRT Ht: 5 ft 6 in Wt: 184lbs BSA: 1.93 BP: 120/80 mmHg Indications: Diabetes, Hyperlipidemia, Hypertension/HDD, 5 stents, old [place], CP, exsmoker 2D Dimensions LVOT 2.01 cm (M/F) 1.5-2.5 LA Volume 46.60 mL LA Volume Index 24.10 mL/m2 (M/F) 16-34 M-Mode Dimensions RVDd 2.19 cm (0.9-2.6) LA Diam 3.59 cm (1.9-4.0) LVDd 4.30 cm (3.5-5.7) Ao Diam 3.87 cm (2.0-3.7) LVDs 3.35 cm (3.5-5.7) IVSd 1.74 cm (0.6-1.1) PWd 1.03 cm (0.6-1.1) EF (Teich) 44.90% FS 22.10% EDV (Teich) 83.10 mL TAPSE 2.06 (<1.7) ESV (Teich) 45.80 mL LV Diastology E Decel Time 177.00 (160-240 msec) E/A Ratio 1.18 MED E' 5.00 (< 7 cm/sec) MED A' 7.80 cm/s E'/MED E' Ratio 24.34 (>14) LAT E' 4.90 (<10 cm/sec) LAT A' 7.80 cm/s E/LAT E' Ratio 24.84 (>14) Aortic Valve AO Peak GR. 9.50 mmHg Mitral Valve MV E Max Jose Armando. 122.00 (40-130 cm/s) MV A Velocity 103.00 (40-130 cm/s) E/A Ratio 1.18 MV Decel. Time 177.00 (160-240 ms) MV PHT 52.00 ms Pulmonary Valve PV Peak Velocity 165.00 (50-150 cm/s) Tricuspid Valve TR P. Velocity 333.00 cm/s RAP Estimate 10.00 mmHg RVSP 54.40 mmHg Left Ventricle Left atrium is mildly enlarged, left ventricle is normal size, mild concentric left ventricular hypertrophy, visually estimated ejection fraction 55% with no regional wall motion abnormality, grade 2 diastolic dysfunction seen with tissue Doppler evidence of raise left atrial pressure. Right Ventricle Right atrium and right ventricle are normal size and contractility. Aortic Valve Aortic valve is minimally thickened and fibrosed, there is no aortic stenosis or aortic insufficiency. Mitral Valve Mitral valve leaflets are minimally thickened, there is mild mitral regurgitation. Tricuspid Valve Tricuspid grossly normal, there is mild tricuspid regurgitation, tricuspid regurgitation jet velocity is inadequate for calculation of the right ventricular systolic pressure. Pulmonic Valve Pulmonic valve is poorly visualized. Great Vessels Aortic root is normal size. Inferior vena cava is poorly visualized. Pericardium No significant pericardial effusion noted. Conclusion 1. Mildly enlarged left atrium, normal left ventricular size, mild concentric left ventricular hypertrophy, visually estimated ejection fraction 55% with no regional wall motion abnormality grade 2 diastolic dysfunction seen with tissue Doppler evidence of raise left atrial pressure. 2. Mild mitral and tricuspid regurgitation. 3. No significant pericardial effusion noted. 4. Inferior vena cava is poorly visualized. Electronically signed by : Steven Bryant MD 10/19/2021 14:04:07
--- NOTE | 2021-10-18 08:28 | HMH.PNCARD ---
Subjective Date: 10/18/21 Time: 08:28 Principal diagnosis: Angina pectoris, hypertension Interval history: 61-year-old white female in bed in no acute distress. No further chest pain after placing nitroglycerin paste and adding Norvasc yesterday in the ER. Troponins normal x2. Exam Vital signs and Labs for Last 24 Hours: Temp Pulse Resp BP Pulse Ox 97.9 F 66 16 138/68 97 10/18/21 04:00 10/18/21 04:00 10/18/21 04:00 10/18/21 04:00 10/18/21 04:00 Laboratory Results - last 24 hr 10/17/21 11:45: WBC 3.0 L, RBC 4.02 L, Hgb 13.0, Hct 41.9, MCV 104.2 H, MCH 32.3 H, MCHC 31.0 L, RDW 15.6, Plt Count 108 L, MPV 9.7, Neut % (Auto) 61.4, Lymph % (Auto) 30.3, [place] % (Auto) 5.0, Eos % (Auto) 1.8, Baso % (Auto) 1.5, Neut # (Auto) 1.9, Lymph # (Auto) 0.9, [place] # (Auto) 0.2, Eos # (Auto) 0.1, Baso # (Auto) 0.0 10/17/21 11:45: Sodium 139, Potassium 4.7, Chloride 107, Carbon Dioxide 28, Anion Gap 8.7, BUN 15, Creatinine 0.70, Estimated Creat Clear 114, Estimated GFR 86, Est GFR ( Amer) 104, Glucose 271 H, Calcium 8.1 L, Troponin I < 0.01 10/17/21 15:15: Troponin I < 0.01 10/17/21 16:08: POC Glucose 77 10/17/21 16:51: SARS-CoV-2 (PCR) Not detected, Influenza A Untype (PCR) Not detected, Influenza Type B (PCR) Not detected 10/17/21 19:43: Troponin I < 0.01 10/17/21 20:53: POC Glucose 111 H 10/18/21 05:49: WBC 4.0 L D, RBC 4.02 L, Hgb 12.7, Hct 39.9, MCV 99.2 H, MCH 31.7 H, MCHC 31.9, RDW 15.7, Plt Count 122 L, MPV 9.6, Neut % (Auto) 57.9, Lymph % (Auto) 31.7, [place] % (Auto) 7.2, Eos % (Auto) 2.9, Baso % (Auto) 0.3, Neut # (Auto) 2.3, Lymph # (Auto) 1.3, [place] # (Auto) 0.3, Eos # (Auto) 0.1, Baso # (Auto) 0.0 10/18/21 05:49: Sodium 142, Potassium 3.9, Chloride 106, Carbon Dioxide 32 H, Anion Gap 7.9, BUN 17, Creatinine 0.80, Estimated Creat Clear 100, Estimated GFR 73, Est GFR ( Amer) 89, Glucose 146 H D, Calcium 8.8 10/18/21 05:58: POC Glucose 142 H I & O for Last 24 hours: Intake & Output 10/15/21 10/16/21 10/17/21 10/18/21 11:59 11:59 11:59 11:59 Output Total 1400 / 1400 Balance -1400 / -1400 Weight 184 lb 184 lb - Constitutional no acute distress - *Routine Respiratory Exam Present: CTA bilaterally - *Routine Cardiovascular Exam Present: RRR - *Routine Neurological Exam Present: alert, oriented X3 Progress Note: A&P (1) Unstable angina Status: Acute (2) Uncontrolled hypertension Status: Acute (3) History of coronary artery stent placement Status: Acute (4) Sinus tachycardia Status: Acute (5) CAD (coronary artery disease) Status: Chronic (6) Diabetes Status: Chronic (7) Thrombocytopenia Status: Acute (8) Lower extremity edema Status: Acute Assessment and Plan for All Diagnoses:: 1. Progressive angina pectoris, improved with nitro paste and addition of Norvasc (patient on a total of 4 antianginal medications). Troponins normal x2. Plan to proceed with left heart catheterization today. Continue aspirin and Plavix. 2. Poorly controlled hypertension, improved with addition of Norvasc. We will have renal angiogram performed at the time of left heart catheterization to evaluate for JACOB. Echocardiogram pending. 3. Diabetes mellitus, per Dr. Bedolla 4. Hyperlipidemia, continue statin therapy 5. Lower extremity edema, improved with IV Lasix. Further recommendations to follow pending cardiac cath and renal angiogram results.
--- NOTE | 2021-10-18 09:09 | HMH.PHAINT ---
home medication list verified using list from outpatient pharmacy and cardiology office
--- NOTE | 2021-10-18 14:18 | PC.NURSE ---
1418-pt taken off floor at this time to labor relations manager for procedure, detailed report given to HarshalRN at bedside, pt's vss
--- NOTE | 2021-10-18 15:33 | PC.NURSE ---
1529-pt arrived to floor at this time post heart cath procedure in stable condition, detailed bedside report obtained from Jose C Maravilla RN, pt's vss, pt denies any pain or discomfort, right radial site free of bleeding or heamtoma, will continue to monitor
--- NOTE | 2021-10-18 15:44 | PC.NURSE ---
[id number] Gonzalez at bedside at this time
--- NOTE | 2021-10-18 16:30 | HMH.DCSUM ---
General - General Admission date:: 10/17/21 Discharge date: 10/18/21 HPI HPI: States she has had intermittent chest pain since Friday evening 2 days ago. Episodes last about 30 minutes. Associated with clamminess and nausea. The first episode was associated with shortness of breath, but none since. She also has some swelling of her legs for the past few days. She has known coronary artery disease has multiple stents. Current pain does feel similar to her previous cardiac pain. She thinks her last heart cath was last year or the year before and she thinks she got a stent at that time. (Per Dr. aBrlow). Patient confirms intermittent, progressive chest discomfort since Friday evening with the last episode of chest pain since she has been in the ER. Initial troponin is normal and EKG is sinus with no acute ST segment changes. Patient is a long-term diabetic with known coronary disease and prior stenting with last stent in 2017 but last cardiac cath was 2018 with small vessel disease and recommendation for medical therapy. Lower extremity edema noted over the last few days as well but denies any change in her diet. Cardiology consulted for evaluation recommendations. Blood pressure in the ER is 190 mmHg systolic. She denies missing any doses of her medications. She was given half inch Nitropaste along with Norvasc 10 mg x 1. Hospital Course Hospital Course: 10/17/2021 chest x-ray: Reveals no acute findings 10/18/2021 cardiac catheterization: ANGIOGRAPHIC RESULTS The left main artery Normal The left anterior descending artery Has a stent in the proximal segment which is widely patent with minimal in-stent restenosis and excellent proximal distal transitioning. The distal LAD is small caliber and has diffuse small vessel vasculopathy. First diagonal artery bifurcates off the proximal LAD and has a stent in the ostial proximal segment which is widely patent with minimal in-stent restenosis The circumflex artery Is a nondominant vessel and has an ostial 20% stenosis. The first and second obtuse marginal arteries are small in caliber and consistent with diffuse hypertensive vasculopathy The right coronary artery Is a dominant vessel and has mild proximal mid vessel distal luminal irregularities. A large posterior lateral branch has a stent in the ostial proximal segment which has mild concentric in-stent restenosis and an ostial 30 to 40% stenosis. A large posterior descending artery has a stent in the proximal segment which is widely patent with mild concentric in-stent restenosis The HIDALGO ventriculogram reveals Not performed The left ventricular end-diastolic pressure Not measured Right renal artery singular normal Left renal artery has a dual arterial supply with both arteries being normal IMPRESSION Patent coronary arteries as described above Normal renal arteries Diffuse hypertensive vasculopathy PLAN 1. Medical management for essential hypertension 2. Medical management for coronary disease 3. Aggressive risk factor modification Electronically signed by : Osorio Phelps MD Cardiology has seen and recommends: Recommend changing the patient's Norvasc (added this admission) to verapamil 180 mg daily and continuing her home medications. Patient could be discharged home later this evening with follow-up in our office in 1 to 2 weeks. 61-year-old female patient resting quietly in bed, she denies any further chest pain or shortness of breath. Cardiac catheterization results explained to her she denies any further questions/comments/complaints, discussed discharge home, she is in agreement with this. PLAN: 1. We will discharge home today 2. Will add verapamil 180 mg daily 3. Continue home medications 4. Follow-up with cardiology in 1 week 5. Follow-up with PCP in 1 week Objective Vital signs: Temp Pulse Resp BP Pulse Ox 98.2 F 73 18 103/5
--- NOTE | 2021-10-18 17:26 | PC.NURSE ---
1726-pt post heart cath and doing well, pt has rested easy post operatively, beginning to remove air from radial site at this time and site remains free of drainage/hematoma, pt denies any pain or soa at this time, ls cta, pulses 2+, nsr on telemetry, pt drinking diet pepsi w/out difficulty, family at bedside, pt's vss post cath, pt's appetite is good, ls cta, will continue to monitor
--- NOTE | 2021-10-18 20:22 | PC.NURSE ---
Discharge paper work given to patient. Patient verbally states she understands discharge instruction, new medication, and follow up appt date and times. Iv removed at this time. Patient tolerated well. Dressing to the Right radial is CDI no hematoma noted.
[2021-10-18 20:34] LABS: POC Glucose,Bedside 160 (70-110)
[2021-10-18 20:34] LABS: POC Glucose,Bedside 199 (70-110)
--- NOTE | 2021-10-19 13:42 | CARE MANAGER ---
Contacted patient related to discharge from hospital. She states she is waiting on [facility] to fill prescription. We discussed monitoring insertion site from heart cath. She is aware of follow up appointment with [facility] and will contact Cardiology to make that appt. for next week. Denies any questions or concerns at this time. DAYANARA Alatorre
== END 2021-10-18 20:30 | disposition home or self-care (01) ==
LOC: ER 15:19 → 2ND 17:02
PROVIDERS: Internal Medicine; Nurse Practitioner Family; Admitting Provider Emergency Medicine; Emergency Provider Emergency Medicine; PCP Emergency Medicine; Visit Provider Emergency Medicine
DX: I25.110 Atherosclerotic heart disease of native coronary artery with unstable angina pectoris (principal); I10 Essential (primary) hypertension; Z20.822 Contact with and (suspected) exposure to COVID-19; E11.9 Type 2 diabetes mellitus without complications; Z79.4 Long term (current) use of insulin; Z79.899 Other long term (current) drug therapy; Z95.5 Presence of coronary angioplasty implant and graft; T82.855A Stenosis of coronary artery stent, initial encounter; R60.0 Localized edema; D69.6 Thrombocytopenia, unspecified; Y83.1 Surgical operation with implant of artificial internal device as the cause of abnormal reaction of the patient, or of later complication, without mention of misadventure at the time of the procedure; I25.2 Old myocardial infarction; Z79.02 Long term (current) use of antithrombotics/antiplatelets
CPT/HCPCS: G0378; 36252; 36415; 71045; 80048; 82962; 84484; 85025; 93005; 93306; 93458; 96374; 96375; 99152; 99285; C1725; C1769; C9803; J1644; Q9967; U0003; U0005

== ENCOUNTER 2021-10-28 13:25 | Emergency (ER) | payer MEDICARE, MEDICAID, SELFPAY ==
[2021-10-28 13:45] VITALS: BP 95/50; PULSE 80; RESP 19; TEMP 36.8; O2SAT 98; BMI 28.8
--- NOTE | 2021-10-28 14:07 | HMH.EDUTC ---
[facility] [place] Disposition Clinical Impression: Back pain with right-sided sciatica Disposition: Home, Self-Care Condition on Discharge: Good Instructions: DI for Back Pain With Sciatica Additional Instructions: rest rotate heat and ice, ice 20 mins remove then left skin come back to room temp and then try heat may repeat for comfort follow up with pcp if no improvement if s=worsen or no improvement return or be seen in ed Referrals: Larry Bedolla MD [Primary Care Provider] - Time of Disposition: 14:12 Medical Decision Making - Billy Inquiry Pt receiving controlled substance: No Vital Signs: 10/28/21 13:45 Temperature 98.3 F Temperature Source Oral Pulse Rate [Left Brachial] 80 Respiratory Rate 19 Blood Pressure [Left Arm] 95/50 L Blood Pressure Mean [Left Arm] 65 Blood Pressure Source [Left Arm] Automatic Cuff Blood Pressure Position [Left Arm] Sitting 02 Sat by Pulse Oximetry 98 Oxygen Delivery Method Room Air Orders (Tests/Meds): ED MEDICATIONS Discontinued Medications Generic Name Dose Route Start Last Admin Trade Name Freq PRN Reason Stop Dose Admin Dexamethasone Sodium Phosphate 4 mg 10/28/21 13:59 Dexamethasone 4mg/Ml 1ml Vial IM 10/28/21 14:00 ONCE ONE [facility] [place] HPI - General Chief complaint: Urgent [facility] Stated complaint: lower back, rt hip and leg pain. Can't walk well Time Seen by Provider: 10/28/21 14:08 Mode of Arrival: Ambulatory Source of Information: Patient Limitations: No Limitations Description of Symptoms (Recalled from Triage Doc. by RN): PATIENT C/O SEVERE PAIN TO LOWER BACK AND RIGHT HIP THAT RADIATES DOWN RIGHT LEG X 3 DAYS. NO KNOWN INJURY HEENT Symptoms (Recalled from RN notes): No Resp Symptoms (Recalled from RN notes): No Skin Symptoms (Recalled from RN notes): No MS Symptoms (Recalled from RN notes): Yes Functional Status (Recalled from RN notes): WNL - History of Present Illness Provider Complaint: 61 yr old female presents for low back pain with pain radiating down hip and rt leg for 3 days - Related Data Home Medications Medication Instructions Recorded Confirmed Aspirin [Low Dose Aspirin EC] 81 mg PO HS 06/14/19 10/24/21 Atorvastatin Calcium [Lipitor 40mg 40 mg PO HS 06/14/19 10/24/21 Tablet*] Clopidogrel Bisulfate [Plavix] 75 mg PO DAILY 12/19/20 10/24/21 Ranolazine [Ranolazine ER] 1,000 mg PO BID 10/17/21 10/24/21 lisinopriL [Lisinopril] 10 mg PO DAILY 10/17/21 10/24/21 Isosorbide Mononitrate [Isosorbide 90 mg PO DAILY 10/18/21 10/24/21 Mononitrate ER] bisoproloL fumarate [Bisoprolol 10 mg PO BID 10/18/21 10/24/21 Fumarate] hydrOXYzine pamoate [Hydroxyzine 50 mg PO HSP PRN 10/18/21 10/24/21 Pamoate] Previous Rx's Medication Instructions Recorded vortioxetine 20 mg tablet 20 mg PO DAILY #90 tab 08/14/21 ergocalciferol (vitamin D2) 1,250 50,000 unit PO WEEKLY #12 cap 10/24/21 mcg (50,000 unit) capsule gabapentin 600 mg tablet 600 mg PO TID #90 tab 10/24/21 hydrocodone 7.5 mg-acetaminophen 1 tab PO QID #120 tab 10/24/21 325 mg tablet insulin glargine 100 unit/mL (3 20 unit SQ HS #15 ml 10/24/21 mL) subcutaneous pen insulin glargine 100 unit/mL 63 unit SQ TIDWMEAL #10 ml 10/24/21 subcutaneous solution metformin 500 mg tablet,extended 1,000 mg PO BID #60 tab 10/24/21 release 24 hr verapamil 180 mg tablet,extended 180 mg PO DAILY #90 tab 10/24/21 release Allergies Allergy/AdvReac Type Severity Reaction Status Date / Time No Known Allergies Allergy Verified 10/24/21 10:33 - Worker's Comp Is this a Worker's Comp case?: No [facility] History - Hepatitis A Screen Drug use history?: No High risk sexual behaviors?: No History of sexually transmitted infection?: No Currently employed?: No Childcare worker?: No Do you have indoor plumbing?: Yes Do you have electricity?: Yes Attestation statement:: This patient has been screened for Hepatitis A risk factors. I have reviewed the patient'
[2021-10-28 14:25] VITALS: BP 95/50; PULSE 80; RESP 19; TEMP 36.8; O2SAT 98
== END 2021-10-28 14:26 | disposition home or self-care (01) ==
PROVIDERS: Emergency Provider Nurse Practitioner Family; PCP Emergency Medicine
DX: M54.40 Lumbago with sciatica, unspecified side (principal); M50.30 Other cervical disc degeneration, unspecified cervical region; M25.551 Pain in right hip; M79.661 Pain in right lower leg; I10 Essential (primary) hypertension; I25.10 Atherosclerotic heart disease of native coronary artery without angina pectoris; I25.2 Old myocardial infarction; E78.5 Hyperlipidemia, unspecified; E11.40 Type 2 diabetes mellitus with diabetic neuropathy, unspecified; F32.A Depression, unspecified; F41.9 Anxiety disorder, unspecified; Z79.02 Long term (current) use of antithrombotics/antiplatelets; Z79.4 Long term (current) use of insulin; Z79.82 Long term (current) use of aspirin; Z79.84 Long term (current) use of oral hypoglycemic drugs; Z79.899 Other long term (current) drug therapy; Z82.49 Family history of ischemic heart disease and other diseases of the circulatory system; Z80.9 Family history of malignant neoplasm, unspecified; Z83.3 Family history of diabetes mellitus
CPT/HCPCS: 96372; 99213; G0463

== ENCOUNTER 2021-10-30 11:30 | Emergency (ER) | payer MEDICARE, MEDICAID, SELFPAY ==
[2021-10-30 11:48] VITALS: BP 185/84; PULSE 90; RESP 14; TEMP 36.9; O2SAT 96; BMI 28.8
--- NOTE | 2021-10-30 11:58 | HMH.EDUTC ---
[facility] [place] Disposition Clinical Impression: Low back pain Qualifiers: Chronicity: acute Back pain laterality: right Sciatica presence: with sciatica Sciatica laterality: sciatica of right side Qualified Code(s): M54.41 - Lumbago with sciatica, right side Sciatica Qualifiers: Laterality: right Qualified Code(s): M54.31 - Sciatica, right side Disposition: Home, Self-Care Condition on Discharge: Good Instructions: DI for Low Back Pain Additional Instructions: Go home and rest. It would be best if you rested tomorrow too. No heavy lifting. No twisting. Take the oral medications as directed. The muscle relaxer (cyclobenzaprine--Flexeril) will make you drowsy, so don't drive or operate heavy machinery after taking it. Don't start the oral steroids (medrol dose pack) until tomorrow, since you had the shots in here today. Follow up with your regular doctor. GO TO THE ER FOR ANY WORSENING SYMPTOMS OR CONCERN, ESPECIALLY BOWEL OR BLADDER ISSUES, SADDLE AREA NUMBNESS, FEVER, ETC Prescriptions: Cyclobenzaprine HCl [Cyclobenzaprine 10mg Tab] 10 mg PO BIDP PRN #20 tab PRN Reason: Muscle Spasm Transmission Status: Received by [facility] methylPREDNISolone [Medrol] 4 mg PO DIRECTED 6 Days #21 packet Transmission Status: Received by [facility] Referrals: Larry Bedolla MD [Primary Care Provider] - Time of Disposition: 12:59 Medical Decision Making - Medical Records Medical records reviewed: No: I reviewed the patient's medical records. - Billy Inquiry Pt receiving controlled substance: No Vital Signs: 10/30/21 11:48 10/30/21 13:15 Temperature 98.5 F 98.5 F Temperature Source Oral Pulse Rate 90 Pulse Rate [Left] 90 Respiratory Rate 14 14 Blood Pressure 185/84 H Blood Pressure [Right Arm] 185/84 H Blood Pressure Mean [Right Arm] 117 02 Sat by Pulse Oximetry 96 Orders (Tests/Meds): ED MEDICATIONS Discontinued Medications Generic Name Dose Route Start Last Admin Trade Name Freq PRN Reason Stop Dose Admin Ketorolac Tromethamine 60 mg 10/30/21 12:32 10/30/21 12:39 Ketorolac 60mg/2ml Vial IM 10/30/21 12:33 60 mg ONCE ONE Administration Methylprednisolone Sodium Succinate 125 mg 10/30/21 12:32 10/30/21 12:39 Methylprednisolone Sod Succ 125mg Vial IM 10/30/21 12:33 125 mg ONCE ONE Administration [facility] [place] HPI - General Stated complaint: rt hip/leg pain Time Seen by Provider: 10/30/21 11:58 Mode of Arrival: Ambulatory Source of Information: Patient Limitations: No Limitations Description of Symptoms (Recalled from Triage Doc. by RN): pt was here and treated for R sided sciatica on 10/27. pt was given injections that helped some. pt states she is still having R hip and leg pain. HEENT Symptoms (Recalled from RN notes): No Resp Symptoms (Recalled from RN notes): No Skin Symptoms (Recalled from RN notes): No MS Symptoms (Recalled from RN notes): Yes Functional Status (Recalled from RN notes): wnl - History of Present Illness Provider Complaint: She is back today with continued low back pain that radiates down her left leg. She was here 3 days ago and got a steroid shot for this. She states that it helped but it did not take it completetly away. - Related Data Home Medications Medication Instructions Recorded Confirmed hydrOXYzine pamoate [Hydroxyzine 50 mg PO HSP PRN 10/18/21 10/30/21 Pamoate] Previous Rx's Medication Instructions Recorded ergocalciferol (vitamin D2) 1,250 50,000 unit PO WEEKLY #12 cap 10/24/21 mcg (50,000 unit) capsule gabapentin 600 mg tablet 600 mg PO TID #90 tab 10/24/21 hydrocodone 7.5 mg-acetaminophen 1 tab PO QID #120 tab 10/24/21 325 mg tablet insulin glargine 100 unit/mL (3 20 unit SQ HS #15 ml 10/24/21 mL) subcutaneous pen insulin glargine 100 unit/mL 63 unit SQ TIDWMEAL #10 ml 10/24/21 subcutaneous solution metformin 500 mg tablet,extended 1,000 mg PO BID #60 tab 10/24/21 r
[2021-10-30 13:15] VITALS: BP 185/84; PULSE 90; RESP 14; TEMP 36.9
== END 2021-10-30 13:16 | disposition home or self-care (01) ==
PROVIDERS: Emergency Provider Nurse Practitioner Family; PCP Emergency Medicine
DX: M54.41 Lumbago with sciatica, right side (principal); F41.8 Other specified anxiety disorders; I10 Essential (primary) hypertension; E11.9 Type 2 diabetes mellitus without complications; E78.5 Hyperlipidemia, unspecified; Z79.899 Other long term (current) drug therapy
CPT/HCPCS: G0463; 96372; 99212

== ENCOUNTER → 2021-11-22 13:45 | Outpatient (CLI) | payer MEDICARE, MEDICAID, SELFPAY | PROVIDERS: Visit Provider Podiatrist | DX: L03.032 Cellulitis of left toe (principal) ==

== ENCOUNTER → 2021-11-22 15:46 | Outpatient (CLI) | payer MEDICARE, MEDICAID, SELFPAY | PROVIDERS: Visit Provider Podiatrist | DX: E11.621 Type 2 diabetes mellitus with foot ulcer (principal); L97.521 Non-pressure chronic ulcer of other part of left foot limited to breakdown of skin; Z79.4 Long term (current) use of insulin; B95.8 Unspecified staphylococcus as the cause of diseases classified elsewhere | CPT/HCPCS: 87070; 87077; 87186; 87205 ==

== ENCOUNTER 2021-11-30 12:41 | Emergency (ER) | payer MEDICARE, MEDICAID, SELFPAY ==
[2021-11-30 12:54] VITALS: BP 148/86; PULSE 91; RESP 18; TEMP 36.9; O2SAT 99; BMI 29.7
--- NOTE | 2021-11-30 12:58 | HMH.EDUTC ---
[facility] [place] Disposition Clinical Impression: Nausea & vomiting Qualifiers: Vomiting type: unspecified Qualified Code(s): R11.2 - Nausea with vomiting, unspecified Disposition: Home, Self-Care Condition on Discharge: Good Instructions: DI for Nausea -- Adult, DI for Vomiting -- Adult Additional Instructions: Drink extra fluids with and between meals. If you have difficulty drinking, try very small amounts of water or suck on ice chips. ? Avoid fruit juices, as these do not replace minerals and can actually increase diarrhea. ? Children and adults can use sports drinks to replenish electrolytes. Younger children and infants should use products formulated for children, like oral rehydration solutions. ? Eat food in small amounts and let your stomach recover. ? Get lots of rest. You may feel tired or weak. ? No greasy or fried foods for the next 24-48 hours BRAT diet Bananas Rice Apples and [place] [place] ? Make sure to drink plenty of liquids ? Return if needed ? Straight to ER if any life threatening symptoms ? Zofran as prescribed ? Follow up with family doctor in the next 48-72 hours if no improvement or any worsening of symptoms Prescriptions: Ondansetron [Zofran 4mg ODT] 4 mg PO TIDP PRN #12 tab PRN Reason: Nausea Transmission Status: Pending to [facility] Referrals: Larry Bedolla MD [Primary Care Provider] - As needed Time of Disposition: 13:31 Medical Decision Making - Billy Inquiry Pt receiving controlled substance: No Billy was queried for this patient: No Vital Signs: 11/30/21 12:54 Temperature 98.4 F Temperature Source Oral Pulse Rate [Left] 91 H Respiratory Rate 18 Blood Pressure [Right Arm] 148/86 H Blood Pressure Mean [Right Arm] 106 02 Sat by Pulse Oximetry 99 Orders (Tests/Meds): ED MEDICATIONS Discontinued Medications Generic Name Dose Route Start Last Admin Trade Name Freq PRN Reason Stop Dose Admin Ondansetron HCl 4 mg 11/30/21 13:03 11/30/21 13:15 Ondansetron 4mg Odt SL 11/30/21 13:04 4 mg ONCE ONE Administration Medical Decision Narrative: Patient states that she has taken zofran in the past without reactions or complications No Vomiting after medicaiton patient reports nausea much improved [facility] [place] HPI - General Stated complaint: vomiting Time Seen by Provider: 11/30/21 12:59 Mode of Arrival: Ambulatory Source of Information: Patient Limitations: No Limitations Description of Symptoms (Recalled from Triage Doc. by RN): pt c/o vomitting for 2 days HEENT Symptoms (Recalled from RN notes): No Resp Symptoms (Recalled from RN notes): No Skin Symptoms (Recalled from RN notes): No MS Symptoms (Recalled from RN notes): No Functional Status (Recalled from RN notes): wnl - History of Present Illness Provider Complaint: Patient state that she was around her neice and nephew recently that was sick with the stomach virus State that that for the last couple of days she has been having N/V State that she hasnt been able to keep much down so she came in to see if she could get something to help with the Vomiting - Related Data Home Medications Medication Instructions Recorded Confirmed insulin aspar prot-insulin aspart 63 unit SQ ml 11/22/21 11/22/21 100 unit/mL (70-30) subcutaneous pen Previous Rx's Medication Instructions Recorded ergocalciferol (vitamin D2) 1,250 50,000 unit PO WEEKLY #12 cap 10/24/21 mcg (50,000 unit) capsule gabapentin 600 mg tablet 600 mg PO TID #90 tab 10/24/21 hydrocodone 7.5 mg-acetaminophen 1 tab PO QID #120 tab 10/24/21 325 mg tablet insulin glargine 100 unit/mL (3 20 unit SQ HS #15 ml 10/24/21 mL) subcutaneous pen Cyclobenzaprine HCl 10 mg PO BIDP PRN #20 tab 10/30/21 [Cyclobenzaprine 10mg Tab] aspirin 81 mg tablet,delayed 81 mg PO HS #90 tab 10/30/21 release bisoprolol fumarate 10 mg tablet 10 mg PO BID #180 tab 10/30/21 isosorbide mononitrate 60 mg 90 mg PO DAILY #135 tab 10/30/21 tablet,extende
[2021-11-30 13:48] VITALS: BP 148/86; PULSE 91; RESP 18; TEMP 36.9
== END 2021-11-30 13:49 | disposition home or self-care (01) ==
PROVIDERS: Emergency Provider Nurse Practitioner; PCP Emergency Medicine
DX: R11.2 Nausea with vomiting, unspecified (principal); E11.9 Type 2 diabetes mellitus without complications; E78.5 Hyperlipidemia, unspecified; F41.8 Other specified anxiety disorders
CPT/HCPCS: 99212; G0463

== ENCOUNTER → 2021-12-26 12:56 | Outpatient (CLI) | payer MEDICARE, MEDICAID, SELFPAY ==
--- NOTE | 2021-12-26 12:56 | MM_ITS ---
PROCEDURE INFORMATION: Exam: MG Left Diagnostic Breast Tomosynthesis Exam date and time: 12/26/2021 1:13 PM Age: 61 years old Clinical indication: Short-term radiographic followup; Left breast calcifications TECHNIQUE: Imaging protocol: Left Diagnostic tomosynthesis and 2D mammography including computer-aided detection (CAD) when performed. Unilateral or bilateral exam. COMPARISON: MG MM DIG SCREENING MAMM BI W/CAD 05/09/2021 1:12 PM FINDINGS: MAMMOGRAPHY: The breasts are heterogeneously dense, which may obscure small masses. There is no stellate mass or architectural distortion to suggest malignancy. Fairly coarse calcifications in the posterior third of the left upper outer quadrant are stable. No skin thickening or axillary adenopathy. IMPRESSION: Stable calcifications in the left upper outer quadrant compared to prior mammogram dated 05/09/2021. A six-month follow-up diagnostic bilateral mammogram is recommended for continued close surveillance of the left sided calcifications as well as part of an annual screening schedule. ASSESSMENT: BI-RADS Category 3: Probably benign
== END ==
PROVIDERS: PCP Emergency Medicine; Visit Provider Nurse Practitioner Family
DX: R92.8 Other abnormal and inconclusive findings on diagnostic imaging of breast (principal)
CPT/HCPCS: 77061; 77065; G0279

== ENCOUNTER → 2022-01-01 14:06 | Outpatient (CLI) | payer MEDICARE, MEDICAID, SELFPAY ==
[2022-01-01 14:13] LABS: Phencyclidine Screen,Urine Negative ng/ml (<25)
[2022-01-01 14:26] LABS: Amphetamine/Metha Screen,Urine Negative ng/ml (<1000)
[2022-01-01 14:29] LABS: Barbiturates Screen,Urine Negative ng/ml (<200); Benzodiazepines Screen,Urine Negative ng/ml (<200)
[2022-01-01 14:30] LABS: Cannabinoid Screen,Urine Negative ng/ml (<50)
[2022-01-01 14:31] LABS: Cocaine Screen,Urine Negative ng/ml (<300); Opiate Screen,Urine Positive ng/ml (<300)
[2022-01-01 14:32] LABS: Methadone Screen,Urine Negative ng/ml (<300)
== END ==
PROVIDERS: PCP Emergency Medicine; Visit Provider Emergency Medicine
DX: M25.512 Pain in left shoulder (principal)
CPT/HCPCS: 80305

== ENCOUNTER → 2022-01-10 14:25 | Outpatient (CLI) | payer MEDICARE, MEDICAID, SELFPAY ==
--- NOTE | 2022-01-10 14:26 | MR_ITS ---
FINAL REPORT CLINICAL HISTORY: back pain lower back pain in coccyx x years ago right hip and leg pain with weakness no injury / trauma ckr FINDINGS: Multiplanar MR imaging of the lumbar spine was performed without contrast. On the sagittal T2-weighted images, disc degeneration is seen at several levels. The vertebral alignment is normal. There is no evidence of fracture. There are several hemangiomas. The conus has an unremarkable appearance. L1-2: There is no significant central canal stenosis or neural foraminal narrowing. L2-3: There is an annular bulge with mild bilateral neural foraminal narrowing. L3-4: There is an annular bulge with facet arthropathy. There is a left posterolateral disc protrusion. There is mild right and moderate left neural foraminal narrowing. There is moderate central canal stenosis with an AP thecal sac diameter of 6 mm. L4-5: There is an annular bulge with facet arthropathy. There is mild bilateral neural foraminal narrowing. L5-S1: There is an annular bulge with a small central disc protrusion. IMPRESSION: Disc protrusions at L3-L4 and L5-S1 with multilevel neural foraminal narrowing and central canal stenosis at L3-L4. Reviewed, Interpreted and Dictated by Ronnell Tom III, MD Transcribed by Rigoberto Jain Authenticated and . [facility]
--- NOTE | 2022-01-10 15:26 | XR_ITS ---
FINAL REPORT CLINICAL HISTORY: right hip pain, for a few weeks FINDINGS: RIGHT HIP Three views were obtained. There is no acute fracture or dislocation. There are mild degenerative changes of both hips. Note is made of mild vascular calcification. IMPRESSION: Mild degenerative changes bilaterally. Reviewed, Interpreted and Dictated by Ronnell Tom III, MD Transcribed by Danica Vargas Authenticated and [facility]
== END ==
PROVIDERS: PCP Emergency Medicine; Visit Provider Emergency Medicine
DX: M54.9 Dorsalgia, unspecified (principal); M25.551 Pain in right hip; M54.50 Low back pain, unspecified
CPT/HCPCS: 72148; 73502; 76376

== ENCOUNTER → 2022-02-04 12:00 | Outpatient (CLI) | payer MEDICARE, MEDICAID, SELFPAY | PROVIDERS: PCP Emergency Medicine; Visit Provider Internal Medicine | DX: Z01.812 Encounter for preprocedural laboratory examination (principal); Z20.822 Contact with and (suspected) exposure to COVID-19; Z13.810 Encounter for screening for upper gastrointestinal disorder | CPT/HCPCS: C9803; U0003; U0005 ==

== ENCOUNTER 2022-02-06 09:35 | Day surgery (SDC) | payer MEDICARE, MEDICAID, SELFPAY ==
[2022-02-04 10:23] VITALS: BMI 29.0
[2022-02-06 09:57] VITALS: BP 133/73; PULSE 75; RESP 17; TEMP 36.3; O2SAT 96
--- NOTE | 2022-02-06 10:25 | P.PN_ITS ---
[facility] Anesthesia Checklist - Patient Identification Patient Identification: Arm Band, Verbal (Name & ) - Structural Data Admitted From: Home Planned Operative Procedure/s: EGD Consent for Planned Operative Procedure(s) Verified: Yes Verified Documents: Surgical Consent - NPO Status Verified Time NPO: 00:00 - Additional verifications Anesthesia Reactions: No Hx Blood Transfusions: No Blood Transfusion Reaction: No - Airway Assessment C-Spine Mobility Assessed: Yes TMJ Mobility Assessed: Yes Dentition: Good Dentition - Neurological Assessment Level of Consciousness: Awake, Alert, Appropriate - Anesthesia Plan Anesthesia Risk discussed: Yes ASA Class: III Anesthesia Type: MAC [facility] History I have reviewed the patient's past medical history: Yes Medical History: Reports:: Anxiety, Coronary Artery Disease, Depression, Diabetes Mellitus Type 2, Hyperlipidemia, Hypertension, Myocardial Infarction Denies:: Cancer, Diabetes Mellitus Type 1, Internal Pacemaker, MRSA, Seizures *Have you ever received a pneumonia vaccine?: Yes *Have you received a flu vaccine this season?: Yes Other Medical History: Denies: Blood Transfusion Reaction Anesthesia experience/problems:: none Laterality Cases: Bilateral: Other Other Surgeries: Yes: No Previous Surgery, Angiogram, Angioplasty, Cardiac Catheterization, Cardiac Surgery, Cholecystectomy, Colonoscopy, Coronary Stent, Dilation and Curettage, EGD, Skin Cancer Excision, Other. No: Pacemaker Amputation: No Fractures: No - *Social History Smoking Status: Never smoker # Packs/Day (cigarettes): 1 Alcohol Intake: never Alcohol Intake Frequency:: other Substance Use Type: denies use *Occupational Status:: disabled Housing: house Household Members: none *Travel in the last 8 weeks: None - Psychiatric History Pschychiatric History:: Reports:: Anxiety, Depression Family Hx:: No significant family history
[2022-02-06 10:35] VITALS: O2SAT 97
[2022-02-06 10:37] LABS: POC Glucose,Bedside 330 (70-110)
--- NOTE | 2022-02-06 10:46 | HMH.SCOPE ---
- Procedure: Date: 02/06/22 Patient Date of :: 1960 Procedure Performed:: EGD Indications:: Cirrhosis, screening for gastroesophageal varices Performing Provider:: Ariel Roche MD Referring Provider:: Larry Bedolla MD Sedation:: See RN Records Procedure:: The gastroscope was gently passed through the incisoral orifice into the oral cavity and under direct visualization the esophagus was intubated. The endoscope was passed down the esophagus, through the stomach, and into the duodenum. Color, texture, mucosa, and anatomy of the esophagus, stomach, and duodenum were carefully examined with the scope. Findings:: Oropharynx: normal Esophagus: normal EG Junction: Measured at 40 cm Cardia: normal Fundus:few small fundic gland polyps Body: Mild gastritis. Linear erythema. Biopsies obtained Antrum: Mild gastritis. Linear erythema. Biopsies obtained Duodenal bulb: normal Duodenum (second and third portion): normal Recommendations:: Await pathology results Repeat EGD in 3 years or sooner if clinically indicated Follow up with patient's advertising assistant at the [facility] for management of cirrhosis Complications:: None Estimated blood obtained (mL): 0
[2022-02-06 10:47] VITALS: BP 93/55; PULSE 71; RESP 14; TEMP 36.1; O2SAT 94
[2022-02-06 10:57] VITALS: BP 102/58; PULSE 73; RESP 16; TEMP 36.1; O2SAT 94
[2022-02-06 11:07] VITALS: BP 116/72; PULSE 78; RESP 16; TEMP 36.1; O2SAT 93
[2022-02-06 11:17] VITALS: BP 128/68; PULSE 76; RESP 16; TEMP 36.1; O2SAT 94
== END 2022-02-06 11:17 | disposition home or self-care (01) ==
PROVIDERS: PCP Emergency Medicine; Visit Provider Internal Medicine
PROC: 0DJ08ZZ Inspection of Upper Intestinal Tract, Via Natural or Artificial Opening Endoscopic (ICD-10-PCS; CPT 43235; principal; 2022-02-06 11:00)
DX: K74.60 Unspecified cirrhosis of liver (principal); E11.9 Type 2 diabetes mellitus without complications; I10 Essential (primary) hypertension; I25.10 Atherosclerotic heart disease of native coronary artery without angina pectoris; K29.70 Gastritis, unspecified, without bleeding; D64.9 Anemia, unspecified
CPT/HCPCS: 43239; 82962; 88305

== ENCOUNTER → 2022-02-11 09:46 | Outpatient (POV) | payer MEDICARE, MEDICAID, SELFPAY ==
[2022-02-11 10:23] VITALS: BP 126/71; PULSE 81; RESP 20; TEMP 36.4; O2SAT 96; BMI 29.8
--- NOTE | 2022-02-11 10:28 | HMH.PMCON ---
Assessment and Plan (1) Neck pain Status: Acute Category: Medical Code(s): M54.2 - Cervicalgia (2) Degenerative disc disease, lumbar Status: Acute Category: Medical Code(s): M51.36 - Other intervertebral disc degeneration, lumbar region (3) Spinal stenosis Status: Acute Category: Medical Code(s): M48.00 - Spinal stenosis, site unspecified (4) Sacroiliitis Status: Acute Category: Medical Code(s): M46.1 - Sacroiliitis, not elsewhere classified (5) Greater trochanteric bursitis of right hip Status: Acute Category: Medical Code(s): M70.61 - Trochanteric bursitis, right hip - Assessment and plan all Dx Assessment and Plan for all problems:: Patient presents today as a new patient with complaints of chronic neck, low back pain, and right hip pain. She is mostly concerned about her right hip pain today. She has point of tenderness on her right SI and right GTB. She has a positive SI exam. She has gone to [email or web address] twice in the last 2-3 months. They gave her a steroid shot and medrol-dos pack that worked for about 2 weeks. We will schedule the pt for a right SI and right GTB injections. Patient has DM and we will need to monitor her sugar before and after the injection. Per the MRI, patient does have DDD lumbar and spinal stenosis. She is also TTP around the lumbar spine. She has an appt with NSx in February. I discussed with the patient that we can try epidural steroid injections for her back. She also might be a good candidate for intrathecal therapy if she is deemed a non-surgical candidate. We will refer her to PT for tx and eval of neck, low back, and right hip pain. FU after injection. Patient has been instructed to contact the clinic with any concerns before the next appointment. Dr. Bernardo has reviewed this note and agrees with this plan of care. This note was dictated using voice recognition software and make contain errors or omissions. HPI - Data of Consult Patient: new to practice Consult date: 02/11/22 Requesting Physician: SKIP Bright - Consult Narrative Reason for consult: Neck pain, LBP, hip pain History of present illness: Ms. Coronel is a 61 year old female who presents today as a new patient. Patient is referred by Dr. Bedolla. Thank you for the referral. Patient presents today with multiple complaints of neck pain, low back pain, hip pain. She had neck spacer placed 2-3 years ago. Her Low back pain started about 3 years ago. Today, she is mostly concerned about her right hip pain that started about 3-4 months ago. Denies any precipitating events such as falls or traumas. She cannot tolerate full activities such as sitting, standing, and walking. She has pain originating from her right upper buttock that radiates to her right leg. She also has some pain around her tailbone as well. She also presents today with an updated lumbar MRI that shows disc protrusions at L3-L4 and L5-S1 with multilevel neuroforaminal narrowing and central canal stenosis at L3-L4. She has been home exercises that provides minimal relief. She has not done any recent physical therapy or chiropractic adjustments. For pain, she has been taking Hixson 7.5 mg 4 times a day and gabapentin 600 mg 3 times a day that is helping manage her neck and low back pain. She has been on this medications for several years now. These are prescribed by Dr. Bedolla. She has a neurosurgery appointment in February. Rates her pain today as 8 out of 10. Billy [phone] with an active morphine equivalent of 30. CC: SKIP Bright [facility] History I have reviewed the patient's past medical history: Yes Medical History: Reports:: Anxiety, Coronary Artery Disease, Depression, Diabetes Mellitus Type 2, Hyperlipidemia, Hypertension, Myocardial Infarction Denies:: Cancer, Diabetes Mellitus Type 1, Internal Pacemaker, MRSA, Seizures *Have you ever received a pneumonia vaccine?: Yes *Have you received a flu vaccine this season?: Yes Other Medical Histo
== END ==
PROVIDERS: Visit Provider Student in an Organized Health Care Education/Training Program
DX: M51.36 Other intervertebral disc degeneration, lumbar region (principal); M46.1 Sacroiliitis, not elsewhere classified; M70.61 Trochanteric bursitis, right hip; M54.2 Cervicalgia; M48.00 Spinal stenosis, site unspecified
CPT/HCPCS: 99202; G0463

== ENCOUNTER 2022-03-05 11:17 | Day surgery (SDC) | payer MEDICARE, MEDICAID, SELFPAY ==
[2022-03-05 11:30] VITALS: BP 184/101; PULSE 108; RESP 20; TEMP 36.6; O2SAT 96; BMI 29.0
[2022-03-05 12:00] VITALS: BP 186/99; PULSE 102; RESP 20; O2SAT 98
--- NOTE | 2022-03-05 13:00 | P.PCN_ITS ---
- Procedure Date: 03/05/22 Time: 13:00 Anesthesiologist:: Naun Barnes CRNA Complications:: None Pre-procedure Diagnosis:: Right sacroiliitis. Right trochanteric bursitis. Post-procedure Diagnosis:: Same Indications for Procedure:: This patient is a pleasant 61-year-old female that comes our clinic today for right SI joint injection as well as right trochanteric bursa injection. She has extreme point tenderness over the right SI joint as well as the right trochanteric bursa area. She rates her pain 9/10. Procedure Details:: Procedure: Right sacroliliac joint injection under fluoroscopy Informed consent was obtained and the risk and benefits of the procedure were explained to the patient.~ The patient was taken to the procedure room and noninvasive monitors were placed including noninvasive blood pressure cuff and pulse oximeter.~ The patient was placed prone on the procedure table.~ The~ right hip was cleansed using Betadine as a cleansing solution.~ C-arm fluorosocpy was used to view the right SI joint.~ The skin and subcutaneous tissues were anesthetized using Lidocaine 1.5% and a 25-gauge needle.~ After this, a 22-gauge spinal needle was inserted under fluoroscopic guidance into the inferior aspect of the right SI joint.~ Omnipaque dye was injected and a good spread was seen throughout the joint.~ After this, approximately 5 mL of bupivacaine 0.25% and Depo-Medrol 40 mg was incrementally injected into the sacroiliac joint.~ The patient tolerated the procedure well with no complications.~ The patient was observed in the Pain Clinic, then discharged home neurologically intact.~ Procedure: Right trochanteric bursa injection under fluoroscopy We then moved to the right trochanteric bursa.~ C-arm fluoroscopy was used to view the left greater trochanter.~ The skin and subcutaneous tissues overlying the right greater trochanter were anesthetized using lidocaine, 1.5% and a 25- gauge needle.~ After this, a 22-gauge spinal needle was inserted and advanced until it contacted the right greater trochanter.~ Dye was injected and good spread was seen throughout the right trochanteric bursa. After this, approximately 5 mL of bupivacaine, 0.25% and Depo-Medrol, 40 mg was incrementally injected into the right right trochanteric bursa.~ The patient tolerated the procedure well with no complications. Plan and Disposition:: Patient was discharged without incident.
== END 2022-03-05 12:00 | disposition home or self-care (01) ==
LOC: SC.PAINP 11:18
PROVIDERS: PCP Emergency Medicine; Visit Provider Nurse Anesthetist, Certified Registered
DX: M46.1 Sacroiliitis, not elsewhere classified (principal); M70.61 Trochanteric bursitis, right hip; M53.3 Sacrococcygeal disorders, not elsewhere classified
CPT/HCPCS: 20610; 27096; G0260; J1040

== ENCOUNTER → 2022-03-06 19:12 | Outpatient (CLI) | payer MEDICARE, MEDICAID, SELFPAY ==
[2022-03-06 16:29] LABS: Amphetamine/Metha Screen,Urine Negative ng/ml (<1000)
[2022-03-06 16:30] LABS: Barbiturates Screen,Urine Negative ng/ml (<200)
[2022-03-06 16:31] LABS: Benzodiazepines Screen,Urine Negative ng/ml (<200); Cannabinoid Screen,Urine Negative ng/ml (<50)
[2022-03-06 16:32] LABS: Cocaine Screen,Urine Negative ng/ml (<300)
[2022-03-06 16:33] LABS: Methadone Screen,Urine Negative ng/ml (<300); Opiate Screen,Urine Positive ng/ml (<300)
[2022-03-06 16:34] LABS: Phencyclidine Screen,Urine Negative ng/ml (<25)
== END ==
PROVIDERS: PCP Emergency Medicine; Visit Provider Emergency Medicine
DX: M54.2 Cervicalgia (principal)
CPT/HCPCS: 80305

== ENCOUNTER 2022-04-10 15:33 | Observation (INO) | payer MEDICARE, MEDICAID, SELFPAY ==
[2022-04-10] VITALS (13 sets, daily range): BP systolic 81–141; BP diastolic 49–83; PULSE 73–90; RESP 16–19; TEMP 36.7–36.8; O2SAT 92–97; BMI 29.7; BMI 30.9
--- NOTE | 2022-04-10 15:32 | HMH.EDGENADL ---
Discharge Plan Disposition Patient Disposition: Admitted As Inpatient Condition: Fair Discharge ED Provider: Greg Almendarez General Adult HPI General Chief complaint: Fall Stated complaint: FALL Time Seen by Provider: 04/10/22 15:37 History of Present Illness HPI narrative: Patient presents with dizziness and passing out. She was standing at her home when symptoms began. She denies associated chest pain or shortness of air. She did strike her head and states she was unconscious for just 1 or 2 seconds before actually having struck her head which awoke her. She does complain of mild to moderate headache at this time. She has passed out in the past for the first time approxi-1 year ago she has had subsequent episodes although this is the first time she sought medical attention for these episodes. Have a known history of coronary artery disease as well as diabetes. Transported by EMS who noted that her blood pressure was low in the 80s range. Related Data Home Medications Medication Instructions Recorded Confirmed verapamil 180 mg tablet,extended 180 mg PO DAILY High blood pressure 02/06/22 03/06/22 release hydroxyzine pamoate 50 mg capsule 50 mg PO HSP PRN sleep 02/11/22 03/06/22 isosorbide mononitrate 60 mg 60 mg PO DAILY High blood pressure 02/11/22 03/06/22 tablet,extended release 24 hr metformin 500 mg tablet,extended See Rx Instructions .Route 03/05/22 03/06/22 release 24 hr .COMPLEX Diabetes Previous Rx's Medication Instructions Recorded ergocalciferol (vitamin D2) 1,250 50,000 unit PO WEEKLY Supplement 10/24/21 mcg (50,000 unit) capsule #12 caps aspirin 81 mg tablet,delayed 81 mg PO HS Heart disease #90 tabs 10/30/21 release bisoprolol fumarate 10 mg tablet 10 mg PO BID High blood pressure 10/30/21 #180 tabs lisinopril 10 mg tablet 10 mg PO DAILY High blood pressure 10/30/21 #90 tabs clopidogrel 75 mg tablet 75 mg PO DAILY platelet inhibitor 11/28/21 #90 tabs ondansetron 4 mg disintegrating 4 mg PO TIDP PRN Nausea #12 tabs 11/30/21 tablet vortioxetine 20 mg tablet 20 mg PO DAILY Depression #90 tabs 01/22/22 gabapentin 600 mg tablet 600 mg PO TID Pain #90 tabs 03/06/22 hydrocodone 7.5 mg-acetaminophen 1 tab PO QID Pain #120 tabs 03/06/22 325 mg tablet furosemide 40 mg tablet See Rx Instructions .Route 03/13/22 .COMPLEX #30 tabs potassium chloride 20 mEq See Rx Instructions .Route 03/13/22 tablet,extended release(part/cryst) .COMPLEX #30 tabs insulin aspar prot-insulin aspart See Rx Instructions .Route 04/03/22 100 unit/mL (70-30) subcutaneous .COMPLEX #45 mL pen (Novolog Mix 70-30FlexPen U-100) insulin glargine 100 unit/mL (3 See Rx Instructions .Route 04/03/22 mL) subcutaneous pen (Basaglar .COMPLEX #15 mL KwikPen U-100 Insulin) cephalexin 500 mg tablet 500 mg PO Q8 uti #30 tabs 04/10/22 hydrocodone 5 mg-acetaminophen 325 1 tab PO Q4H PRN pain #20 tabs 04/10/22 mg tablet Allergies Allergy/AdvReac Type Severity Reaction Status Date / Time No Known Allergies Allergy Verified 03/06/22 10:00 [facility] Medical History (Updated 04/10/22 @ 18:44 by Kristy Mohr, DAYANARA) Anxiety CAD (coronary artery disease) Depression Diabetes mellitus, type 2 HHD (hypertensive heart disease) HLD (hyperlipidemia) Skin cancer Surgical History (Updated 04/10/22 @ 18:53 by Kristy Mohr, RN) History of cardiac catheterization History of cholecystectomy Family History (Updated 04/10/22 @ 18:44 by Kristy Mohr RN) Other Cancer Family history of diabetes mellitus type II Family history of hypertension Social History (Updated 04/10/22 @ 18:54 by Kristy Mohr, DAYANARA) Smoking Status: Never smoker second hand exposure: No alcohol intake: never substance use type: denies use current occupational status: disabled and other Travel in the last 8 weeks: None household members: none housing: house lives independently: Yes marital status: lorena
--- NOTE | 2022-04-10 15:37 | CT_ITS ---
FINAL REPORT CLINICAL HISTORY: trauma, lac on left side of scalp COMPARISON: 09/17/2019 FINDINGS: Axial images of the head were obtained without contrast. Coronal reformatted images were also obtained.This study was performed with techniques to keep radiation doses as low as reasonably achievable (ALARA). Individualized dose reduction techniques using automated exposure control or adjustment of mA and/or kV according to the patient's size were employed. There is no evidence of intracranial hemorrhage or mass. The ventricular size is within normal limits. There is no evidence of shift of the midline structures. No abnormal extra axial fluid collection is identified. No skull abnormality is seen on the bone window images. IMPRESSION: No acute intracranial abnormality. Reviewed, Interpreted and Dictated by Ronnell Tom III, MD Transcribed by Rigoberto Jain Authenticated and [facility]
--- NOTE | 2022-04-10 16:04 | PC.NURSE ---
pt to ct
--- NOTE | 2022-04-10 16:14 | ECG_ITS ---
APPROVED REPORT Exam: Resting ECG HR:79 bpm ECG Measurements Heart Rate 79 AXES ME 162 P 6 QRSd 86 QRS -16 QT 416 T -7 QTc 450 Conclusion SINUS RHYTHM LEFT VENTRICULAR HYPERTROPHY AND ST-T CHANGE [VOLTAGE CRITERIA PLUS ST/T ABNORMALITY] ABNORMAL ECG UNCONFIRMED REPORT Electronically signed by : Jaylne Escudero MD 04/11/2022 19:29:47
--- NOTE | 2022-04-10 16:16 | PC.NURSE ---
pt to ct via stretcher
[2022-04-10 16:26] LABS: Basophils # 0.1 K/mm3 (0-0.2); Basophils % 1.5 % (0.1-2.0); Eosinophils # 0.1 K/mm3 (0.0-0.4); Eosinophils % 2.3 % (0.1-12.0); Hematocrit 43.4 % (37.0-47.0); Hemoglobin 13.9 g/dL (12.2-16.2); Lymphocytes # 1.5 K/mm3 (0.7-4.5); Lymphocytes % 26.3 % (10-50); Mean Corpuscular HGB Conc 32.2 g/dL (31.8-35.4); Mean Corpuscular Volume 99.4 fl (81-99); Mean Platelet Volume 9.7 fl (7.4-10.4); Monocytes # 0.3 K/mm3 (0.1-1.0); Monocytes % 5.9 % (1.7-9.3); Neutrophils # 3.6 K/mm3 (1.8-7.8); Platelet Count 168 K/mm3 (142-424); Red Blood Count 4.36 M/mm3 (4.20-5.40); Red Cell Distribution Width 15.1 % (11.5-17.5); White Blood Count 5.7 K/mm3 (4.8-10.8)
[2022-04-10 16:27] LABS: Chloride 107 mmol/L (98-107); Sodium 144 mmol/L (136-145)
[2022-04-10 16:28] LABS: Potassium 4.8 mmoL/L (3.5-5.1)
[2022-04-10 16:30] LABS: Alanine Aminotransferase 33 U/L (12-78); Albumin Level 3.7 g/dl (3.5-5.0); Albumin/Globulin Ratio 1.1 (1.1-1.8); Alkaline Phosphatase 154 U/L (38-126); Anion Gap 7.8 mEq/L (5-15); Aspartate Amino Transferase 53 U/L (14-36); Bilirubin,Total 0.6 mg/dl (0.2-1.3); Blood Urea Nitrogen 15 mg/dl (7-17); Carbon Dioxide 34 mmol/L (22.0-30.0); Creatinine Clearance Estimated 73 mL/min (50-200); Estimated Glomerular Filt Rate 51 ml/min (>60); GFR (African American) 62 ML/MIN (>60); Globulin 3.3 g/dL (1.3-3.2)
[2022-04-10 16:31] LABS: Calcium 8.7 mg/dl (8.4-10.2); Glucose 127 mg/dl (74-100)
[2022-04-10 16:44] LABS: Troponin I < 0.01 ng/ml (0.00-0.034)
--- NOTE | 2022-04-10 18:01 | PC.NURSE ---
DR. PRESTON PAGED AT THIS TIME
[2022-04-10 19:14] LABS: Coronavirus 19, PCR Not Detected (NotDetected); Influenza A, PCR Not Detected (NotDetected); Influenza B, PCR Not Detected (NotDetected)
[2022-04-10 19:36] LABS: Troponin I < 0.01 ng/ml (0.00-0.034)
--- NOTE | 2022-04-10 21:52 | PC.NURSE ---
PT ARRIVED TO FLOOR VIA W/C @ 2283
[2022-04-10 22:31] LABS: Troponin I < 0.01 ng/ml (0.00-0.034)
[2022-04-10 22:49] LABS: POC Glucose,Bedside 134 (70-110)
[2022-04-11] VITALS: BP 171/61; PULSE 75; PULSE 78; RESP 17; TEMP 37; O2SAT 93
--- NOTE | 2022-04-11 03:56 | PC.NURSE ---
Pt is alert and oriented x4, pt has been resting since arriving to the floor with no issues or complaints. Pt is receiving NS @ 50. Pt lung sounds are clear. Abdomen soft and nontender. Pt has had no syncopal episodes. Pt remains on room air with no issues. Tele shows NSR. Small laceration to left side of scalp is scabbed over. Call light in reach and working.
[2022-04-11 04:00] VITALS: BP 134/79; PULSE 68; PULSE 70; RESP 16; TEMP 36.5; O2SAT 96
[2022-04-11 04:47] VITALS: BMI 30.9
--- NOTE | 2022-04-11 06:04 | CA_ITS ---
FINAL REPORT TECHNIQUE: Color Doppler, duplex Doppler and estrada scale sonography of the bilateral neck vasculature was performed. Velocities were measured in the carotid arteries. Stenosis evaluation based on velocity criteria. CLINICAL HISTORY: syncope,CAD, DM, HDL, skin CA FINDINGS: The peak systolic velocity of the right common carotid artery is 50 cm/sec and internal carotid artery 73 cm/sec. The diastolic velocity in the internal carotid artery is 24 cm/sec. The ICA/CCA ratio is 1.7. Visually, a small amount of plaque is seen. These findings are consistent with less than 50% stenosis. The external carotid artery is patent. The right vertebral artery is patent with antegrade flow. The peak systolic velocity of the left common carotid artery is 77 cm/sec and internal carotid artery 72 cm/sec. The diastolic velocity in the internal carotid artery is 25 cm/sec. The ICA/CCA ratio is 1.2. Visually, a small amount of plaque is seen. These findings are consistent with less than 50% stenosis. The external carotid artery is patent. The left vertebral artery is patent with antegrade flow. Small nodules are noted in the thyroid bilaterally. These are nonspecific. If indicated, consider dedicated ultrasound of the thyroid. IMPRESSION: Less than 50% stenosis in the bilateral carotid arteries. Bilateral patent vertebral arteries. If indicated, CTA or MRA could further evaluate. Reviewed, Interpreted and Dictated by Ronnell Tom III, MD Transcribed by Angelica Woodall Authenticated and . [facility]
[2022-04-11 07:20] LABS: Basophils # 0.1 K/mm3 (0-0.2); Eosinophils # 0.1 K/mm3 (0.0-0.4); Eosinophils % 2.7 % (0.1-12.0); Hematocrit 40.9 % (37.0-47.0); Lymphocytes # 1.8 K/mm3 (0.7-4.5); Lymphocytes % 38.3 % (10-50); Mean Corpuscular HGB Conc 31.8 g/dL (31.8-35.4); Mean Corpuscular Hemoglobin 31.7 pg (27.0-31.2); Mean Corpuscular Volume 99.7 fl (81-99); Mean Platelet Volume 9.4 fl (7.4-10.4); Monocytes # 0.3 K/mm3 (0.1-1.0); Monocytes % 6.3 % (1.7-9.3); Neutrophils # 2.4 K/mm3 (1.8-7.8); Neutrophils % 51.5 % (37.0-80.0); Platelet Count 116 K/mm3 (142-424); Red Blood Count 4.11 M/mm3 (4.20-5.40); Red Cell Distribution Width 15.4 % (11.5-17.5); White Blood Count 4.6 K/mm3 (4.8-10.8)
[2022-04-11 07:28] LABS: Alanine Aminotransferase 32 U/L (12-78); Albumin Level 3.1 g/dl (3.5-5.0); Alkaline Phosphatase 133 U/L (38-126); Anion Gap 10.9 mEq/L (5-15); Aspartate Amino Transferase 46 U/L (14-36); Bilirubin,Total 0.4 mg/dl (0.2-1.3); Blood Urea Nitrogen 19 mg/dl (7-17); Calcium 8.3 mg/dl (8.4-10.2); Carbon Dioxide 29 mmol/L (22.0-30.0); Chloride 106 mmol/L (98-107); Creatinine Clearance Estimated 69 mL/min (50-200); Estimated Glomerular Filt Rate 46 ml/min (>60); GFR (African American) 55 ML/MIN (>60); Glucose 85 mg/dl (74-100); Potassium 3.9 mmoL/L (3.5-5.1); Sodium 142 mmol/L (136-145); Total Protein,Serum 6.1 g/dl (6.3-8.2)
[2022-04-11 07:29] LABS: Prothrombin Time 11.8 seconds (10.1-12.5)
[2022-04-11 07:33] LABS: POC Glucose,Bedside 78 (70-110)
--- NOTE | 2022-04-11 07:34 | P.CONPHA_ITS ---
[facility] Pharmacy VTE Monitoring Patient Demographics Admission date: 04/10/22 Report Date: 04/11/22 Time: 07:34 Patient Allergies No Known Allergies Allergy (Verified 04/10/22 22:44) Height: 1.68 m Weight: 87.175 kg Current Active Problems (Updated 04/10/22 @ 22:50 by Marylin Lynn RN) Syncope and collapse (Acute) VTE Risk Labs: VTE Related Lab Results Hgb 13.0 g/dL (12.2-16.2) 04/11/22 06:18 Hct 40.9 % (37.0-47.0) 04/11/22 06:18 Plt Count 116 K/mm3 (142-424) L D 04/11/22 06:18 PT 11.8 seconds (10.1-12.5) 04/11/22 06:18 INR 1.10 (0.9-1.1) 04/11/22 06:18 BUN 19 mg/dl (7-17) H D 04/11/22 06:18 Creatinine 1.20 mg/dl (0.52-1.04) H 04/11/22 06:18 Estimated Creat Clear 69 mL/min (50-200) 04/11/22 06:18 Was VTE Risk Assessment Performed: Yes VTE Score: 5 VTE Risk Level: Low Risk Prophylaxis VTE Prophylaxis Ordered?: Yes Types of VTE Prophylaxis: TEDS Knee High Location of Applied Device: Bilateral Lower Extremeties
[2022-04-11 08:00] VITALS: BP 114/67; PULSE 77; PULSE 79; RESP 16; TEMP 36.6; O2SAT 94
--- NOTE | 2022-04-11 09:16 | EXP.CARD.CON ---
History of Present Illness History of Present Illness Consult date: 04/11/22 Requesting physician: Kana Payne Chief complaint: Syncope Additional Medical History:: 1. Diabetes mellitus, insulin-dependent 2. Hypertension 3. Hyperlipidemia 4. Coronary artery disease A. SOPHIE to LAD and Ramus, 2015 B. SOPHIE to PDA, 2017 C.??[facility] 2018 : Medical therapy recommended for mild CAD except severe CAD of small distal portion of PLVB. D. [facility], 09/2021 ANGIOGRAPHIC RESULTS The left main artery Normal The left anterior descending artery Has a stent in the proximal segment which is widely patent with minimal in-stent restenosis and excellent proximal distal transitioning.? The distal LAD is small caliber and has diffuse small vessel vasculopathy.? First diagonal artery bifurcates off the proximal LAD and has a stent in the ostial proximal segment which is widely patent with minimal in-stent restenosis The circumflex artery Is a nondominant vessel and has an ostial 20% stenosis.? The first and second obtuse marginal arteries are small in caliber and consistent with diffuse hypertensive vasculopathy The right coronary artery Is a dominant vessel and has mild proximal mid vessel distal luminal irregularities.? A large posterior lateral branch has a stent in the ostial proximal segment which has mild concentric in-stent restenosis and an ostial 30 to 40% stenosis.? A large posterior descending artery has a stent in the proximal segment which is widely patent with mild concentric in-stent restenosis The HIDALGO ventriculogram reveals Not performed The left ventricular end-diastolic pressure Not measured Right renal artery singular normal Left renal artery has a dual arterial supply with both arteries being normal IMPRESSION Patent coronary arteries as described above Normal renal arteries Diffuse hypertensive vasculopathy PLAN 1. Medical management for essential hypertension 2. Medical management for coronary disease 3. Aggressive risk factor modification 5. Family history of coronary artery disease in her brother 6.? EGD/Colonoscopy, 01/2020 A.? EGD, Gastroesophageal junction at 39 cm, Streaking gastritis, Focal severe inflammation of mid gastric body Exceedingly poor bowel preparation (rectal vault/anal canal with large amount of firm formed stool) B.? Colonoscopy, Bowel preparation moderate (dramatically improved versus prior evaluation),? Hemorrhoidal tag/cushions, Fairly severe tortuosity of sigmoid colon,? Severe lack of relaxation throughout colon,? Adjacent polyps of mid transverse colon C.? Repeat EGD/Colon, 12/2020, no significant findings. 7. Syncope, felt due to low BP, 04/10/[address] of the head, negative for acute abnormalities B. Carotid ultrasound, less than 50% stenosis of the ICAs bilaterally. History of present illness: Patient presents with dizziness and passing out.? She was standing at her home when symptoms began.? She denies associated chest pain or shortness of air.? She did strike her head and states she was unconscious for just 1 or 2 seconds before actually having struck her head which awoke her.? She does complain of mild to moderate headache at this time.? She has passed out in the past for the first time approximately -1 year ago she has had subsequent episodes although this is the first time she sought medical attention for these episodes.? Have a known history of coronary artery disease as well as diabetes.? Transported by EMS who noted that her blood pressure was low in the 80s range. The above per Dr. Greg Almendarez, ER Cardiology consulted for evaluation. Troponins normal x3. EKG is sinus rhythm with voltage criteria for LVH. No acute ST segment changes. Labs reveal evidence of mild dehydration with normal hemoglobin and potassium levels. Patient confirms events as noted above and states she had recently stood up when she passed out. This has happen
--- NOTE | 2022-04-11 09:42 | EXP.HPDC ---
General Admission date:: 04/10/22 *Admission Date: 04/10/22 *Chief complaint: Syncope *History of present illness: 62-year-old female patient presented to the [facility] urgency department via EMS after syncopal episode, falling and hitting her head she reports possibly being unconscious for 1 to 2 seconds then hitting her head which awakened her. She did complain of mild to moderate headache and reports this is happened to her several times in the past. She does have a history of coronary artery disease and diabetes. EMS reported blood pressure was in the low 80s during transport. [facility] Medical History (Updated 04/10/22 @ 22:50 by Marylin Lynn RN) Anxiety CAD (coronary artery disease) Depression Diabetes mellitus, type 2 HHD (hypertensive heart disease) HLD (hyperlipidemia) Surgical History History of cardiac catheterization History of cholecystectomy Family History Other Cancer Family history of diabetes mellitus type II Family history of hypertension Social History Smoking Status: Never smoker second hand exposure: No alcohol intake: never substance use type: denies use current occupational status: disabled and other Travel in the last 8 weeks: None household members: none housing: house lives independently: Yes marital status: single number of children: 0 education level: high school current occupation: [employer] current occupational exposures/hazards: No caffeine: Yes Review of Systems Constitutional Constitutional: Reports system reviewed and no additional complaints, except as documented Eyes Eyes: Reports system reviewed and no additional complaints, except as documented *Respiratory Respiratory: Reports system reviewed and no additional complaints, except as documented *Genitourinary Genitourinary: Reports system reviewed and no additional complaints, except as documented *Musculoskeletal Musculoskeletal: Reports system reviewed and no additional complaints, except as documented Integumentary/Breasts Skin/Breast: Reports system reviewed and no additional complaints, except as documented *Neurologic Neurologic: Reports system reviewed and no additional complaints, except as documented Endocrine Endocrine: Reports system reviewed and no additional complaints, except as documented Hematologic/Lymphatic Hematologic/Lymphatic: Reports system reviewed and no additional complaints, except as documented Allergic/Immunologic Allergic/Immunologic: Reports system reviewed and no additional complaints, except as documented Exam Data for Last 24 hours Vital signs and Labs for Last 24 Hours: Temp Pulse Resp BP Pulse Ox 97.8 F 79 16 114/67 94 L 04/11/22 08:00 04/11/22 08:00 04/11/22 08:00 04/11/22 08:00 04/11/22 08:00 Laboratory Results - last 24 hr 04/10/22 16:20: WBC 5.7, RBC 4.36, Hgb 13.9, Hct 43.4, MCV 99.4 H, MCH 32.0 H, MCHC 32.2, RDW 15.1, Plt Count 168, MPV 9.7, Neut % (Auto) 64.0, Lymph % (Auto) 26.3, [place] % (Auto) 5.9, Eos % (Auto) 2.3, Baso % (Auto) 1.5, Neut # (Auto) 3.6, Lymph # (Auto) 1.5, [place] # (Auto) 0.3, Eos # (Auto) 0.1, Baso # (Auto) 0.1 04/10/22 16:20: Sodium 144, Potassium 4.8, Chloride 107, Carbon Dioxide 34 H, Anion Gap 7.8, BUN 15, Creatinine 1.10 H, Estimated Creat Clear 73, Estimated GFR 51 L, Est GFR ( Amer) 62, Glucose 127 H, Calcium 8.7, Total Bilirubin 0.6, AST 53 H, ALT 33, Alkaline Phosphatase 154 H, Troponin I < 0.01, Total Protein 7.0, Albumin 3.7, Globulin 3.3 H, Albumin/Globulin Ratio 1.1 04/10/22 18:46: SARS-CoV-2 (PCR) Not detected, Influenza A Untype (PCR) Not detected, Influenza Type B (PCR) Not detected 04/10/22 18:54: Troponin I < 0.01 04/10/22 21:45: Troponin I < 0.01 04/10/22 22:33: POC Glucose 134 H 04/11/22 06:18: WBC 4.6 L, RBC 4.11 L,
[2022-04-11 10:27] LABS: Chol/HDL Ratio 4.3 (1-3.5); Cholesterol 149 mg/dl (140-200); HDL Cholesterol 35 mg/dl (40-60); Triglycerides 132 mg/dl (30-150); VLDL Cholesterol 26 mg/dL (0-40)
[2022-04-11 10:37] LABS: Direct LDL Cholesterol 81.57 mg/dL (100-129)
[2022-04-11 10:59] LABS: Hemoglobin A1C 10.4 % (4.0-6.0)
[2022-04-11 11:23] VITALS: BP 153/93; PULSE 90; RESP 17; TEMP 36.8; O2SAT 94
--- NOTE | 2022-04-12 15:57 | CARE MANAGER ---
Called Ms. Coronel to discuss post discharge status. Patient states that she is feeling a little light headed and her BP is 70s / 40s. She states that she has called her heart doctor and is waiting for them to call her back. I confirmed that she had stopped the medications that were discontinued at discharge and informed her that she should go to the ER if symptoms persisted or worsened.
== END 2022-04-11 13:22 | disposition home or self-care (01) ==
LOC: ER 15:56 → 2ND 18:48
PROVIDERS: Physician Assistant; Admitting Provider Internal Medicine Adolescent Medicine; Emergency Provider Emergency Medicine; PCP Emergency Medicine; Visit Provider Emergency Medicine
DX: R55 Syncope and collapse (principal); I11.9 Hypertensive heart disease without heart failure; I25.10 Atherosclerotic heart disease of native coronary artery without angina pectoris; E78.2 Mixed hyperlipidemia; Z95.5 Presence of coronary angioplasty implant and graft; I65.23 Occlusion and stenosis of bilateral carotid arteries; Z79.899 Other long term (current) drug therapy; Z79.4 Long term (current) use of insulin; E11.9 Type 2 diabetes mellitus without complications; R29.6 Repeated falls; Z20.822 Contact with and (suspected) exposure to COVID-19
CPT/HCPCS: G0378; 36415; 70450; 80053; 80061; 82962; 83036; 84484; 85025; 85610; 93005; 93880; 99285; C9803; U0003; U0005

== ENCOUNTER → 2022-04-24 10:05 | Outpatient (CLI) | payer MEDICARE, MEDICAID, SELFPAY | PROVIDERS: PCP Emergency Medicine; Visit Provider Emergency Medicine | DX: L02.415 Cutaneous abscess of right lower limb (principal); B95.7 Other staphylococcus as the cause of diseases classified elsewhere | CPT/HCPCS: 87070; 87077; 87186; 87205 ==

== ENCOUNTER → 2022-05-31 10:28 | Outpatient (CLI) | payer MEDICARE, MEDICAID, SELFPAY ==
--- NOTE | 2022-05-31 10:42 | XR_ITS ---
FINAL REPORT CLINICAL HISTORY: RAISED ALKALINE PHOSPHATASE COMPARISON: 10/17/2021 FINDINGS: Two views of the chest were obtained. There is cardiomegaly. There is mild pulmonary vascular congestion. The mediastinum is normal. No acute pulmonary abnormality is identified. There is no pneumothorax. There are postoperative changes in the lower cervical spine. IMPRESSION: Cardiomegaly with mild pulmonary vascular congestion. No acute cardiopulmonary process. Reviewed, Interpreted and Dictated by Ronnell Tom III, MD Transcribed by Kayleen George Authenticated and [facility]
== END ==
PROVIDERS: PCP Emergency Medicine; Visit Provider Nurse Practitioner Family
DX: R74.8 Abnormal levels of other serum enzymes (principal)
CPT/HCPCS: 71046

== ENCOUNTER 2022-06-12 08:34 | Emergency (ER) | payer MEDICARE, MEDICAID, SELFPAY ==
[2022-06-12 09:00] VITALS: BP 123/73; PULSE 85; RESP 18; TEMP 36.7; O2SAT 99; BMI 32.8
--- NOTE | 2022-06-12 09:09 | EXP.UTC ---
Discharge Plan Disposition Patient Disposition: Home, Self-Care Condition: Good Prescriptions Prescriptions: New cephalexin 500 mg capsule 500 mg PO TID Qty: 30 0RF mupirocin 2 % ointment 1 applic topical TID 10 Days Qty: 22 0RF No Action aspirin 81 mg tablet,delayed release (DR/EC) 81 mg PO HS Qty: 90 3RF lisinopril 10 mg tablet 10 mg PO DAILY Qty: 90 3RF ergocalciferol (vitamin D2) 1,250 mcg (50,000 unit) capsule 50,000 unit PO WEEKLY Qty: 12 0RF (DME) OneTouch Ultra Test Strip See Rx Instructions .ROUTE .MEDSUPPLY Qty: 10 Rx Instructions: As directed lactulose 10 gram/15 mL solution 15 ml PO DAILY (DME) pen needle, diabetic [BD Ultra-Fine Mini Pen Needle] 31 gauge x 3/16 needle See Rx Instructions .ROUTE .MEDSUPPLY Qty: 50 Rx Instructions: As directed gabapentin 600 mg tablet 600 mg PO TID Qty: 90 1RF hydrocodone-acetaminophen 7.5-325 mg tablet 1 tab PO QID Qty: 120 0RF bisoprolol fumarate 10 mg tablet 10 mg PO BID furosemide 40 mg tablet 40 mg PO BID PRN (Reason: edema) Qty: 60 5RF hydroxyzine pamoate 50 mg capsule 50 mg PO HSP PRN (Reason: sleep) 90 Days Qty: 90 0RF vortioxetine 20 mg tablet 20 mg PO DAILY Qty: 90 0RF clopidogrel 75 mg tablet 75 mg PO DAILY Qty: 90 3RF minocycline 100 mg capsule 100 mg PO BID 10 Days Qty: 20 0RF mupirocin 2 % ointment 1 applic topical BID Qty: 22 0RF potassium chloride 20 mEq tablet,ER particles/crystals 20 meq PO DAILY Rx Instructions: TAKE ONE TABLET BY MOUTH ONCE A DAY insulin asp prt-insulin aspart [Novolog Mix 70-30FlexPen U-100] 100 unit/mL (70-30) insulin pen 63 unit SQ TID Rx Instructions: INJECT 63 UNITS SUBCUTANEOUSLY 3 TIMES A DAY FOR DIABETES insulin glargine [Basaglar KwikPen U-100 Insulin] 100 unit/mL (3 mL) insulin pen 20 unit SQ DAILY Rx Instructions: INJECT 20 UNITS SUBCUTANEOUSLY ONCE A DAY metformin 500 MG tablet extended release 24 hr 1,000 mg PO BID Rx Instructions: TAKE 2 TABLETS BY MOUTH 2 TIMES A DAY FOR DIABETES Referrals Follow up/Referrals: Larry Bedolla MD [Primary Care Provider] - See instructions Activity Restrictions/Add. Instructions Additional Instructions/Restrictions: Keep appointment with Podiatry as scheduled if it gets worse call and see if they can get you in sooner Stop using Peroxide Start antibiotics as prescribed REturn if needed Straight to ER if any lfie threatening symptoms Wear open toed shoes or wide boxed toe shoes to avoid pressure on toes Clinical Impressions Clinical Impression: Skin lesion of foot Instructions Patient Instructions: Cephalexin, DI for Diabetic Foot Ulcer, Diabetic Foot Ulcer Discharge ED Provider: Karlie Maxwell [facility] [place] HPI General Stated complaint: Lt big toe has two sores, possibly infected Mode of Arrival: Ambulatory Source of Information: Patient Limitations: No Limitations Time Seen by Provider: 06/12/22 09:10 Description of Symptoms (Recalled from Triage Doc. by RN): PATIENT C/O 2 INFECTED SORES TO LEFT BIG TOE X 1 WEEK HEENT Symptoms (Recalled from RN notes): No Resp Symptoms (Recalled from RN notes): No Skin Symptoms (Recalled from RN notes): Yes MS Symptoms (Recalled from RN notes): No Functional Status (Recalled from RN notes): WNL Card Symptoms (Recalled from RN notes): No Other (Recalled from RN notes): No History of Present Illness Provider Complaint: Patient state that she seen her diabetic specialist around the first and her second toe on her left foot looked infected so they put her on cephalexin States that about a week ago she noticed a couple sores on her left great toe starting States that she has been cleaning them with peroxide but they havent got any better States that today they was looking worse States that she has appointment with Podiatry next week but thought she may need some antibiotics to hel
[2022-06-12 09:21] VITALS: BP 123/73; PULSE 85; RESP 18; TEMP 36.7; O2SAT 99
== END 2022-06-12 09:24 | disposition home or self-care (01) ==
PROVIDERS: Emergency Provider Nurse Practitioner; PCP Emergency Medicine
DX: S91.102A Unspecified open wound of left great toe without damage to nail, initial encounter (principal); S91.105A Unspecified open wound of left lesser toe(s) without damage to nail, initial encounter; R00.0 Tachycardia, unspecified; R09.89 Other specified symptoms and signs involving the circulatory and respiratory systems; R93.89 Abnormal findings on diagnostic imaging of other specified body structures; I25.10 Atherosclerotic heart disease of native coronary artery without angina pectoris; N17.9 Acute kidney failure, unspecified; N28.9 Disorder of kidney and ureter, unspecified; E11.65 Type 2 diabetes mellitus with hyperglycemia; E11.319 Type 2 diabetes mellitus with unspecified diabetic retinopathy without macular edema; M46.1 Sacroiliitis, not elsewhere classified; M48.061 Spinal stenosis, lumbar region without neurogenic claudication; M51.36 Other intervertebral disc degeneration, lumbar region; M54.31 Sciatica, right side; E66.9 Obesity, unspecified; J45.909 Unspecified asthma, uncomplicated; F32.9 Major depressive disorder, single episode, unspecified; F41.9 Anxiety disorder, unspecified; Z79.02 Long term (current) use of antithrombotics/antiplatelets; Z79.4 Long term (current) use of insulin; Z79.82 Long term (current) use of aspirin; Z79.84 Long term (current) use of oral hypoglycemic drugs; Z79.899 Other long term (current) drug therapy; Z68.30 Body mass index [BMI] 30.0-30.9, adult; Z82.49 Family history of ischemic heart disease and other diseases of the circulatory system; Z83.3 Family history of diabetes mellitus; Z80.9 Family history of malignant neoplasm, unspecified
CPT/HCPCS: 99213; G0463

== ENCOUNTER → 2022-06-18 11:10 | Outpatient (CLI) | payer MEDICARE, MEDICAID, SELFPAY ==
[2022-06-18 18:46] LABS: Benzodiazepines Screen,Urine Negative ng/ml (<200)
[2022-06-18 18:47] LABS: Amphetamine/Metha Screen,Urine Negative ng/ml (<1000); Barbiturates Screen,Urine Negative ng/ml (<200)
[2022-06-18 18:48] LABS: Cannabinoid Screen,Urine Negative ng/ml (<50)
[2022-06-18 18:49] LABS: Cocaine Screen,Urine Negative ng/ml (<300)
[2022-06-18 18:50] LABS: Methadone Screen,Urine Negative ng/ml (<300); Opiate Screen,Urine Positive ng/ml (<300)
[2022-06-18 18:51] LABS: Phencyclidine Screen,Urine Negative ng/ml (<25)
== END ==
PROVIDERS: PCP Emergency Medicine; Visit Provider Emergency Medicine
DX: Z79.899 Other long term (current) drug therapy (principal)
CPT/HCPCS: 80305

== ENCOUNTER → 2022-06-19 12:48 | Outpatient (CLI) | payer MEDICARE, MEDICAID, SELFPAY ==
--- NOTE | 2022-06-19 12:57 | XR_ITS ---
FINAL REPORT CLINICAL HISTORY: Left foot pain, wound to great toe, swelling COMPARISON: June 2021 FINDINGS: 3 views of the right foot were obtained. There is a subacute to chronic fracture of the 2nd proximal phalanx. There are mild degenerative changes at the 1st MTP joint. There are calcaneal spurs. The soft tissues are unremarkable. IMPRESSION: Subacute to chronic fracture of the 2nd proximal phalanx. Reviewed, Interpreted and Dictated by Ronnell Tom III, MD Transcribed by Rigoberto Jain Authenticated and [facility]
--- NOTE | 2022-06-19 12:57 | XR_ITS ---
FINAL REPORT CLINICAL HISTORY: ankle pain and swelling FINDINGS: LEFT ANKLE: Three views of the left ankle were obtained. There is no acute fracture or dislocation. Calcaneal spurs are present. The joint spaces and mortise are intact. There is no soft tissue abnormality. IMPRESSION: No acute process. Reviewed, Interpreted and Dictated by Ronnell Tom III, MD Transcribed by Rigoberto Jain Authenticated and [facility]
[2022-06-19 13:42] LABS: Basophils % 0.4 % (0.1-2.0); Eosinophils # 0.1 K/mm3 (0.0-0.4); Eosinophils % 2.6 % (0.1-12.0); Hematocrit 41.4 % (37.0-47.0); Hemoglobin 12.9 g/dL (12.2-16.2); Lymphocytes % 29.9 % (10-50); Mean Corpuscular HGB Conc 31.2 g/dL (31.8-35.4); Mean Corpuscular Hemoglobin 31.5 pg (27.0-31.2); Mean Platelet Volume 9.8 fl (7.4-10.4); Monocytes # 0.2 K/mm3 (0.1-1.0); Monocytes % 6.7 % (1.7-9.3); Neutrophils # 1.9 K/mm3 (1.8-7.8); Neutrophils % 60.4 % (37.0-80.0); Platelet Count 104 K/mm3 (142-424); Red Cell Distribution Width 15.2 % (11.5-17.5); White Blood Count 3.2 K/mm3 (4.8-10.8)
[2022-06-19 14:52] LABS: Alanine Aminotransferase 45 U/L (12-78); Albumin Level 3.5 g/dl (3.5-5.0); Albumin/Globulin Ratio 1.1 (1.1-1.8); Alkaline Phosphatase 179 U/L (38-126); Anion Gap 15.5 mEq/L (5-15); Aspartate Amino Transferase 67 U/L (14-36); Blood Urea Nitrogen 14 mg/dl (7-17); Calcium 9.2 mg/dl (8.4-10.2); Carbon Dioxide 31 mmol/L (22.0-30.0); Chloride 102 mmol/L (98-107); Estimated Glomerular Filt Rate 73 ml/min (>60); GFR (African American) 89 ML/MIN (>60); Globulin 3.2 g/dL (1.3-3.2); Glucose 161 mg/dl (74-100); Potassium 4.5 mmoL/L (3.5-5.1); Sodium 144 mmol/L (136-145); Total Protein,Serum 6.7 g/dl (6.3-8.2)
[2022-06-19 14:59] LABS: C-Reactive Protein 5.2 mg/L (0-4)
[2022-06-19 16:17] LABS: Erythrocyte Sedimentation Rate 43 mm/hr (0-30)
== END ==
PROVIDERS: PCP Emergency Medicine; Visit Provider Nurse Practitioner Family
DX: M79.672 Pain in left foot (principal); E10.65 Type 1 diabetes mellitus with hyperglycemia; M25.572 Pain in left ankle and joints of left foot; Z79.4 Long term (current) use of insulin
CPT/HCPCS: 36415; 73610; 73630; 80053; 85025; 85651; 86140

== ENCOUNTER → 2022-08-02 13:53 | Outpatient (CLI) | payer MEDICARE, MEDICAID, SELFPAY ==
[2022-08-02 15:05] LABS: Chloride 106 mmol/L (98-107)
[2022-08-02 15:06] LABS: Potassium 4.7 mmoL/L (3.5-5.1); Sodium 144 mmol/L (136-145)
[2022-08-02 15:08] LABS: Blood Urea Nitrogen 15 mg/dl (7-17); Estimated Glomerular Filt Rate 57 ml/min (>60); GFR (African American) 68 ML/MIN (>60)
[2022-08-02 15:09] LABS: Anion Gap 11.7 mEq/L (5-15); Calcium 9.2 mg/dl (8.4-10.2); Carbon Dioxide 31 mmol/L (22.0-30.0); Glucose 69 mg/dl (74-100)
[2022-08-02 15:22] LABS: NT Pro Brain Natriuretic Pep. 571 pg/mL (0-125)
== END ==
PROVIDERS: PCP Emergency Medicine; Visit Provider Internal Medicine Cardiovascular Disease
DX: E10.65 Type 1 diabetes mellitus with hyperglycemia (principal); E78.2 Mixed hyperlipidemia; I11.9 Hypertensive heart disease without heart failure; I25.10 Atherosclerotic heart disease of native coronary artery without angina pectoris; R06.00 Dyspnea, unspecified; R09.89 Other specified symptoms and signs involving the circulatory and respiratory systems
CPT/HCPCS: 36415; 80048; 83880

== ENCOUNTER → 2022-08-16 17:09 | Outpatient (CLI) | payer MEDICARE, MEDICAID, SELFPAY ==
[2022-08-16 15:57] LABS: Benzodiazepines Screen,Urine Negative ng/ml (<200)
[2022-08-16 15:58] LABS: Amphetamine/Metha Screen,Urine Negative ng/ml (<1000)
[2022-08-16 15:59] LABS: Barbiturates Screen,Urine Negative ng/ml (<200); Cannabinoid Screen,Urine Negative ng/ml (<50)
[2022-08-16 16:00] LABS: Cocaine Screen,Urine Negative ng/ml (<300)
[2022-08-16 16:01] LABS: Methadone Screen,Urine Negative ng/ml (<300); Phencyclidine Screen,Urine Negative ng/ml (<25)
[2022-08-16 16:02] LABS: Opiate Screen,Urine Positive ng/ml (<300)
== END ==
PROVIDERS: PCP Emergency Medicine; Visit Provider Emergency Medicine
DX: M54.16 Radiculopathy, lumbar region (principal)
CPT/HCPCS: 80305

== ENCOUNTER → 2022-10-28 13:51 | Outpatient (CLI) | payer MEDICARE, MEDICAID, SELFPAY | PROVIDERS: PCP Nurse Practitioner Family; Visit Provider Nurse Practitioner Family | DX: L03.116 Cellulitis of left lower limb (principal); B95.7 Other staphylococcus as the cause of diseases classified elsewhere | CPT/HCPCS: 87070; 87077; 87186; 87205 ==

== ENCOUNTER → 2022-10-29 11:10 | Outpatient (CLI) | payer MEDICARE, MEDICAID, SELFPAY ==
[2022-10-29 11:19] LABS: Microscopic, Urine URINE MICROSCOPIC (MICROSCOPIC)
[2022-10-29 11:51] LABS: Basophils % 0.2 % (0.1-2.0); Hematocrit 40.2 % (37.0-47.0); Hemoglobin 12.4 g/dL (12.2-16.2); Lymphocytes # 1.3 K/mm3 (0.7-4.5); Lymphocytes % 42.7 % (10-50); Mean Corpuscular HGB Conc 30.9 g/dL (31.8-35.4); Mean Corpuscular Hemoglobin 30.7 pg (27.0-31.2); Mean Corpuscular Volume 99.5 fl (81-99); Mean Platelet Volume 8.5 fl (7.4-10.4); Monocytes # 0.2 K/mm3 (0.1-1.0); Monocytes % 7.4 % (1.7-9.3); Neutrophils # 1.5 K/mm3 (1.8-7.8); Neutrophils % 49.7 % (37.0-80.0); Platelet Count 87 K/mm3 (142-424); Red Blood Count 4.04 M/mm3 (4.20-5.40); Red Cell Distribution Width 14.8 % (11.5-17.5)
[2022-10-29 12:25] LABS: Appearance,Urine CLEAR (Clear); Bilirubin,Urine Negative (Negative); Blood, Urine TRACE-I (Negative); Color,Urine YELLOW (Yellow); Glucose,Urine (UA) TRACE (Negative); Ketones,Urine Negative (Negative); Leukocyte Esterase,Urine Negative (Negative); Nitrate,Urine Negative (Negative); PH,Urine 5.5 (5.0-8.5); Protein,Urine 1+ (Negative); Specific Gravity, Urine >= 1.030 (1.005-1.030)
[2022-10-29 12:26] LABS: Bacteria,Urine 1+ /lpf; RBC,Urine Occasional #/hpf (0-3); WBC,Urine Occasional #/hpf (0-3)
[2022-10-29 12:32] LABS: Creatinine,Urine Random 245 mg/dL (Not Estab.)
[2022-10-29 12:35] LABS: Microalbumin/Creatinine Ratio 36.5
[2022-10-29 12:55] LABS: Albumin Level 3.6 g/dl (3.5-5.0); Anion Gap 7.6 mEq/L (5-15); Blood Urea Nitrogen 16 mg/dl (7-17); Calcium 8.5 mg/dl (8.4-10.2); Carbon Dioxide 34 mmol/L (22.0-30.0); Chloride 104 mmol/L (98-107); Estimated Glomerular Filt Rate 57 ml/min (>60); GFR (African American) 68 ML/MIN (>60); Glucose 181 mg/dl (74-100); Phosphorous 3.8 mg/dl (2.5-4.5); Potassium 4.6 mmoL/L (3.5-5.1); Sodium 141 mmol/L (136-145)
[2022-10-29 13:08] LABS: Intact Parathyroid Hormone 122.2 pg/mL (7.5-53.5)
[2022-10-29 13:12] LABS: 25-OH Vitamin D, Total 20.4 ng/mL (30-100)
== END ==
PROVIDERS: PCP Emergency Medicine; Visit Provider Internal Medicine Nephrology
DX: R80.9 Proteinuria, unspecified (principal); E55.9 Vitamin D deficiency, unspecified
CPT/HCPCS: 36415; 80069; 81001; 82043; 82306; 82570; 83970; 84155; 85025

== ENCOUNTER → 2022-12-04 10:08 | Outpatient (CLI) | payer MEDICARE, MEDICAID, SELFPAY ==
[2022-12-04 17:09] LABS: Amphetamine/Metha Screen,Urine Negative ng/ml (<1000)
[2022-12-04 17:10] LABS: Barbiturates Screen,Urine Negative ng/ml (<200)
[2022-12-04 17:11] LABS: Benzodiazepines Screen,Urine Negative ng/ml (<200); Cannabinoid Screen,Urine Negative ng/ml (<50)
[2022-12-04 17:12] LABS: Cocaine Screen,Urine Negative ng/ml (<300)
[2022-12-04 17:13] LABS: Methadone Screen,Urine Negative ng/ml (<300); Opiate Screen,Urine Positive ng/ml (<300)
[2022-12-04 17:14] LABS: Phencyclidine Screen,Urine Negative ng/ml (<25)
== END ==
PROVIDERS: PCP Emergency Medicine; Visit Provider Emergency Medicine
DX: Z79.899 Other long term (current) drug therapy (principal)
CPT/HCPCS: 80305

== ENCOUNTER 2023-01-13 18:06 | Observation (INO) | payer MEDICARE, MEDICAID, SELFPAY ==
[2023-01-13] VITALS (8 sets, daily range): BP systolic 88–130; BP diastolic 60–72; PULSE 80–95; RESP 16–20; TEMP 36.7–36.9; O2SAT 91–98; BMI 32.5; BMI 32.6; BMI 32.4
--- NOTE | 2023-01-13 18:26 | PC.NURSE ---
PATIENT SENT TO ER PER Holli AN APRN FOR FURTHER EVALUATION. REPORT GIVEN TO Lyle PINZON RN BY Holli AN APRN. PATIENT TRANSFERRED TO ER VIA WHEELCHAIR AT THIS TIME
--- NOTE | 2023-01-13 18:26 | EXP.UTC ---
Discharge Plan Disposition Patient Disposition: Still a Patient Condition: Fair Chief Complaint: Weakness Prescriptions Prescriptions: No Action ergocalciferol (vitamin D2) 1,250 mcg (50,000 unit) capsule 50,000 unit PO WEEKLY Qty: 12 0RF (DME) OneTouch Ultra Test Strip See Rx Instructions .ROUTE .MEDSUPPLY Qty: 10 Rx Instructions: As directed Ozempic 0.25 mg or 0.5 mg(2 mg/1.5 mL) pen injector 0.25 mg SQ WEEKLY Qty: 1.5 2RF Rx Instructions: 0.25mg weekly for 4weeks then 0.5mg weekly Farxiga 5 mg tablet 5 mg PO Fiasp U-100 Insulin 100 unit/mL solution SQ mupirocin 2 % ointment 1 applic topical BID Qty: 22 0RF gabapentin 800 mg tablet 800 mg PO TID Qty: 90 0RF hydrocodone-acetaminophen 10-325 mg tablet 1 tab PO QID Qty: 120 0RF insulin asp prt-insulin aspart [Novolog Mix 70-30FlexPen U-100] 100 unit/mL (70-30) insulin pen See Rx Instructions .ROUTE .COMPLEX Qty: 45 3RF Dose Instruction: INJECT 63 UNITS SUBCUTANEOUSLY 3 TIMES A DAY FOR DIABETES Rx Instructions: INJECT 63 UNITS SUBCUTANEOUSLY 3 TIMES A DAY FOR DIABETES spironolactone 25 mg tablet See Rx Instructions .ROUTE .COMPLEX Qty: 90 1RF Dose Instruction: TAKE ONE TABLET BY MOUTH ONCE A DAY Rx Instructions: TAKE ONE TABLET BY MOUTH ONCE A DAY aspirin 81 mg tablet,delayed release (DR/EC) 81 mg PO HS Qty: 90 3RF vortioxetine 20 mg tablet 20 mg PO DAILY Qty: 90 1RF ondansetron 4 mg tablet,disintegrating 4 mg PO Q8H PRN (Reason: nausea and vomiting) Qty: 30 2RF furosemide 40 mg tablet 40 mg PO BID PRN (Reason: edema) Qty: 60 5RF clopidogrel 75 mg tablet See Rx Instructions .ROUTE .COMPLEX Qty: 90 1RF Dose Instruction: TAKE ONE TABLET BY MOUTH ONCE A DAY FOR PLATELET INHIBITOR Rx Instructions: TAKE ONE TABLET BY MOUTH ONCE A DAY FOR PLATELET INHIBITOR (DME) lancets [OneTouch Delica Plus Lancet] 33 gauge misc See Rx Instructions .ROUTE .COMPLEX Qty: 100 0RF Dose Instruction: USE DIRECTED TO TEST BLOOD SUGAR Rx Instructions: USE DIRECTED TO TEST BLOOD SUGAR bisoprolol fumarate 10 mg tablet 10 mg PO BID Qty: 180 3RF lisinopril 10 mg tablet 10 mg PO DAILY Qty: 90 3RF hydroxyzine pamoate 50 mg capsule 50 mg PO HSP PRN (Reason: sleep) 90 Days Qty: 90 0RF metformin 500 mg tablet extended release 24 hr See Rx Instructions .ROUTE .COMPLEX Qty: 120 2RF Dose Instruction: TAKE 2 TABLETS BY MOUTH 2 TIMES A DAY FOR DIABETES Rx Instructions: TAKE 2 TABLETS BY MOUTH 2 TIMES A DAY FOR DIABETES insulin glargine [Lantus Solostar U-100 Insulin] 100 unit/mL (3 mL) insulin pen See Rx Instructions .ROUTE .COMPLEX Qty: 15 0RF Dose Instruction: INJECT 20 UNITS SUBCUTANEOUSLY ONCE A DAY Rx Instructions: INJECT 20 UNITS SUBCUTANEOUSLY ONCE A DAY Referrals Follow up/Referrals: Larry Bedolla MD [Primary Care Provider] - See instructions Discharge ED Provider: Greg Jones [facility] [place] HPI General Stated complaint: low bp; tiredness Mode of Arrival: Ambulatory Source of Information: Patient Limitations: No Limitations Time Seen by Provider: 01/13/23 18:26 Description of Symptoms (Recalled from Triage Doc. by RN): PATIENT C/O LOW BLOOD PRESSURE, HIGH HEART RATE, SLEEPING A LOT, AND WEAKNESS IN LEGS THAT STARTED 2 DAYS AGO HEENT Symptoms (Recalled from RN notes): No Resp Symptoms (Recalled from RN notes): No Skin Symptoms (Recalled from RN notes): No MS Symptoms (Recalled from RN notes): No Functional Status (Recalled from RN notes): WNL History of Present Illness Provider Complaint: Patient states that for the last couple of days she has been feeling swimmy headed shaky, heart feels like it is beating fast, weakness and trembling in her legs and sleeping alot having feels like she is having a hard time staying awake and she checked her blood pressure and seen it was lo
--- NOTE | 2023-01-13 18:33 | ECG_ITS ---
APPROVED REPORT Exam: Resting ECG HR:90 bpm ECG Measurements Heart Rate 90 AXES UT 176 P 12 QRSd 93 QRS -12 QT 377 T 50 QTc 425 Conclusion SINUS RHYTHM MINIMAL VOLTAGE CRITERIA FOR LVH, CONSIDER NORMAL VARIANT [MEETS CRITERIA IN ONE OF: R(aVL), S(V1), R(V5), R(V5/V6)+S(V1)] NONSPECIFIC T-WAVE ABNORMALITY BORDERLINE ECG UNCONFIRMED REPORT Electronically signed by : Jaylen Escudero MD 01/14/2023 20:14:32
--- NOTE | 2023-01-13 18:38 | CT_ITS ---
PROCEDURE INFORMATION: Exam: CT Head Without Contrast Exam date and time: 01/13/23 07:04 PM Age: 62 years old Clinical indication: Dizziness and other: General weakness; Patient HX: Vertigo, weakness x 1-2 weeks worsening recently. Nonsmoker. 0 CA HX. ; Additional info: Dizziness, weakness TECHNIQUE: Imaging protocol: Computed tomography of the head without contrast. Radiation optimization: All CT scans at this facility use at least one of these dose optimization techniques: automated exposure control; mA and/or kV adjustment per patient size (includes targeted exams where dose is matched to clinical indication); or iterative reconstruction. REPORTING DATA: Count of CT and Cardiac NM exams in prior 12 months: This patient has received [address] and 0 known cardiac nuclear medicine studies in the 12 months prior to the current study. COMPARISON: CT HEAD/BRAIN WO CON 04/10/22 04:09 PM FINDINGS: Brain: Normal. No hemorrhage. Unremarkable white matter. No mass effect. Cerebral ventricles: No ventriculomegaly. Paranasal sinuses: Visualized sinuses are unremarkable. No fluid levels. Mastoid air cells: Visualized mastoid air cells are well aerated. Bones/joints: Unremarkable. No acute fracture. Soft tissues: Unremarkable. IMPRESSION: No acute intracranial abnormality.
--- NOTE | 2023-01-13 18:38 | XR_ITS ---
PROCEDURE INFORMATION: Exam: XR Chest Exam date and time: 01/13/23 06:43 PM Age: 62 years old Clinical indication: Other: General weakness, vertigo; Prior surgery; Surgery date: 6+ months; Surgery type: Stents; Additional info: Weakness, dizziness TECHNIQUE: Imaging protocol: Radiologic exam of the chest. Views: 2 views. COMPARISON: CR XR CHEST 2V 05/31/22 10:57 AM FINDINGS: Lungs: No acute cardiopulmonary findings. Pleural spaces: Unremarkable. No pleural effusion. No pneumothorax. Heart/Mediastinum: Unremarkable. No cardiomegaly. Bones/joints: Anterior fusion C-spine. IMPRESSION: 1. Anterior fusion C-spine. 2. No acute cardiopulmonary findings.
[2023-01-13 18:48] LABS: Basophils % 0.2 % (0.1-2.0); Eosinophils % 0.4 % (0.1-12.0); Hematocrit 41.1 % (37.0-47.0); Lymphocytes # 1.3 K/mm3 (0.7-4.5); Lymphocytes % 31.9 % (10-50); Mean Corpuscular HGB Conc 31.7 g/dL (31.8-35.4); Mean Corpuscular Hemoglobin 30.9 pg (27.0-31.2); Mean Corpuscular Volume 97.6 fl (81-99); Mean Platelet Volume 10.4 fl (7.4-10.4); Monocytes # 0.3 K/mm3 (0.1-1.0); Monocytes % 6.7 % (1.7-9.3); Neutrophils # 2.4 K/mm3 (1.8-7.8); Neutrophils % 60.7 % (37.0-80.0); Platelet Count 101 K/mm3 (142-424); Red Blood Count 4.21 M/mm3 (4.20-5.40); Red Cell Distribution Width 14.8 % (11.5-17.5)
--- NOTE | 2023-01-13 18:52 | CT_ITS ---
PROCEDURE INFORMATION: Exam: CTA Head With Contrast, Arteriography Exam date and time: 01/13/23 07:06 PM Age: 62 years old Clinical indication: Vertigo and weakness; Patient HX: Vertigo, weakness x 1-2 weeks worsening recently. Nonsmoker. 0 CA HX. ; Additional info: Constatnt dizziness TECHNIQUE: Imaging protocol: Computed tomographic angiography of the head with contrast. Exam focused on the arteries. 3D rendering (Not supervised by radiologist): MIP and/or 3D reconstructed images were created by the technologist. Radiation optimization: All CT scans at this facility use at least one of these dose optimization techniques: automated exposure control; mA and/or kV adjustment per patient size (includes targeted exams where dose is matched to clinical indication); or iterative reconstruction. Contrast material: ISOVUE 370; Contrast volume: 100 ml; Contrast route: INTRAVENOUS (IV); REPORTING DATA: Count of CT and Cardiac NM exams in prior 12 months: This patient has received [address] and 0 known cardiac nuclear medicine studies in the 12 months prior to the current study. COMPARISON: CT HEAD/BRAIN WO CON 01/13/23 07:04 PM FINDINGS: ANTERIOR CIRCULATION: Right internal carotid artery: Intracranial segment is patent with no significant stenosis. No aneurysm. Right middle cerebral artery: No occlusion or significant stenosis. No aneurysm. Right anterior cerebral artery: No occlusion or significant stenosis. No aneurysm. Left internal carotid artery: Intracranial segment is patent with no significant stenosis. No aneurysm. Left middle cerebral artery: No occlusion or significant stenosis. No aneurysm. Left anterior cerebral artery: No occlusion or significant stenosis. No aneurysm. POSTERIOR CIRCULATION: Right vertebral artery: No occlusion or significant stenosis. No aneurysm. Left vertebral artery: No occlusion or significant stenosis. No aneurysm. Basilar artery: No occlusion or significant stenosis. No aneurysm. Right posterior cerebral artery: No occlusion or significant stenosis. No aneurysm. Left posterior cerebral artery: No occlusion or significant stenosis. No aneurysm. Brain: No definite mass, mass effect, or midline shift. Cerebral ventricles: No ventriculomegaly. Bones/joints: Unremarkable. No acute fracture. Soft tissues: Unremarkable. IMPRESSION: No large vessel stenosis or occlusion.
--- NOTE | 2023-01-13 18:52 | CT_ITS ---
PROCEDURE INFORMATION: Exam: CTA Neck With Contrast Exam date and time: 01/13/23 07:06 PM Age: 62 years old Clinical indication: Vertigo and weakness; Patient HX: Vertigo, weakness x 1-2 weeks worsening recently. Nonsmoker. 0 CA HX. ; Additional info: Constatnt dizziness TECHNIQUE: Imaging protocol: Computed tomographic angiography of the neck with contrast. 3D rendering (Not supervised by radiologist): MIP and/or 3D reconstructed images were created by the technologist. Radiation optimization: All CT scans at this facility use at least one of these dose optimization techniques: automated exposure control; mA and/or kV adjustment per patient size (includes targeted exams where dose is matched to clinical indication); or iterative reconstruction. Contrast material: ISOVUE 370; Contrast volume: 100 ml; Contrast route: INTRAVENOUS (IV); REPORTING DATA: Count of CT and Cardiac NM exams in prior 12 months: This patient has received [address] and 0 known cardiac nuclear medicine studies in the 12 months prior to the current study. COMPARISON: FINDINGS: Right common carotid artery: No stenosis. No dissection or occlusion. Right internal carotid artery: No stenosis of the extracranial segment. No dissection or occlusion. Right external carotid artery: No occlusion or stenosis of the origin. Left common carotid artery: No stenosis. No dissection or occlusion. Left internal carotid artery: No stenosis of the extracranial segment. No dissection or occlusion. Left external carotid artery: No occlusion or stenosis of the origin. Right vertebral artery: No stenosis. No dissection or occlusion. Left vertebral artery: No stenosis. No dissection or occlusion. Thyroid: Thyroid goiter. Soft tissues: Normal. No significant soft tissue swelling. Bones/joints: No acute fracture. IMPRESSION: No hemodynamically significant extracranial cerebrovascular stenosis detected. REFERENCES: NASCET CRITERIA. The degree of stenosis in the cervical segment of the internal carotid artery is based on NASCET criteria. Normal is no stenosis. Mild is less than 50% stenosis. Moderate is 50-69% stenosis. Severe is 70% to 99% stenosis. Total occlusion is no detectable patent lumen.
[2023-01-13 18:56] LABS: Alanine Aminotransferase 46 U/L (12-78); Albumin Level 3.7 g/dl (3.5-5.0); Alkaline Phosphatase 145 U/L (38-126); Anion Gap 13.5 mEq/L (5-15); Aspartate Amino Transferase 72 U/L (14-36); Bilirubin,Total 0.6 mg/dl (0.2-1.3); Blood Urea Nitrogen 43 mg/dl (7-17); Calcium 8.7 mg/dl (8.4-10.2); Carbon Dioxide 31 mmol/L (22.0-30.0); Chloride 102 mmol/L (98-107); Creatinine Clearance Estimated 47 mL/min (50-200); Estimated Glomerular Filt Rate 27 ml/min (>60); GFR (African American) 33 ML/MIN (>60); Globulin 3.6 g/dL (1.3-3.2); Glucose 247 mg/dl (74-100); Magnesium 2.1 mg/dl (1.6-2.3); Potassium 5.5 mmoL/L (3.5-5.1); Sodium 141 mmol/L (136-145); Total Protein,Serum 7.3 g/dl (6.3-8.2)
--- NOTE | 2023-01-13 19:03 | HMH.EDGENADL ---
Discharge Plan Disposition Patient Disposition: Admitted Condition: Fair Clinical Impressions Clinical Impression: Dizziness, GERMÁN (acute kidney injury), Acute hyperkalemia Discharge ED Provider: Greg Jones General Adult HPI General Chief complaint: Weakness Stated complaint: low bp; tiredness Time Seen by Provider: 01/13/23 18:26 Mode of Arrival: Ambulatory Source of Information: Patient Limitations: No Limitations Description of Symptoms (Recalled from ER Triage Doc. by RN): PATIENT C/O LOW BLOOD PRESSURE, HIGH HEART RATE, SLEEPING A LOT, AND WEAKNESS IN LEGS THAT STARTED 2 DAYS AGO History of Present Illness HPI narrative: This is a 62-year-old female with history of diabetes, hypertension, hyperlipidemia, CKD, chronic liver disease, chronic neck and back pain, CAD presenting with dizziness. Patient states that she is felt generally weak for the past couple of days. She states that her legs feel weak given how tired she has been. She has been sleeping almost all day every day. Denies fevers or chills, nausea or vomiting, diarrhea, rash, but has been having myalgias. Taking her medications as prescribed. No recent travel. Denies sensory deficits, upper extremity weakness, perineal numbness, bowel or bladder dysfunction, or any other concerns. Related Data Home Medications Medication Instructions Recorded Confirmed blood sugar diagnostic (SavveoTouch #10 ea 05/22/22 01/13/23 Ultra Test strips) dapagliflozin propanediol 5 mg 5 mg PO DAILY High blood pressure 12/04/22 01/13/23 tablet (Farxiga) insulin aspart (niacinamide) See Rx Instructions .Route 12/04/22 01/13/23 (U-100) 100 unit/mL subcutaneous .COMPLEX Diabetes solution (Fiasp U-100 Insulin) clopidogrel 75 mg tablet See Rx Instructions .Route 01/13/23 01/13/23 .COMPLEX Blood thinner gabapentin 800 mg tablet 800 mg PO TID Pain 01/13/23 01/13/23 hydrocodone 10 mg-acetaminophen 1 tab PO QID Pain 01/13/23 01/13/23 325 mg tablet insulin aspar prot-insulin aspart See Rx Instructions .Route 01/13/23 01/13/23 100 unit/mL (70-30) subcutaneous .COMPLEX Diabetes pen (Novolog Mix 70-30FlexPen U-100) insulin glargine 100 unit/mL (3 See Rx Instructions .Route 01/13/23 01/13/23 mL) subcutaneous pen (Lantus .COMPLEX Diabetes Solostar U-100 Insulin) lancets 33 gauge (OneTouch Delica 01/13/23 01/13/23 Plus Lancet) metformin 500 mg tablet,extended See Rx Instructions .Route 01/13/23 01/13/23 release 24 hr .COMPLEX Diabetes semaglutide 0.25 mg or 0.5 mg (2 0.25 mg SQ WEEKLY Weight loss 01/13/23 01/13/23 mg/1.5 mL) subcutaneous pen injector spironolactone 25 mg tablet See Rx Instructions .Route 01/13/23 01/13/23 .COMPLEX Fluid vortioxetine 20 mg tablet 20 mg PO DAILY Mood 01/13/23 01/13/23 Previous Rx's Medication Instructions Recorded ergocalciferol (vitamin D2) 1,250 50,000 unit PO WEEKLY Supplement 10/24/21 mcg (50,000 unit) capsule #12 caps aspirin 81 mg tablet,delayed 81 mg PO HS Heart disease #90 tabs 10/30/22 release ondansetron 4 mg disintegrating 4 mg PO Q8H PRN nausea and 11/07/22 tablet vomiting #30 tabs furosemide 40 mg tablet 40 mg PO BID PRN edema #60 tabs 11/27/22 bisoprolol fumarate 10 mg tablet 10 mg PO BID High blood pressure 12/31/22 #180 tabs hydroxyzine pamoate 50 mg capsule 50 mg PO HSP PRN sleep 90 days #90 12/31/22 caps lisinopril 10 mg tablet 10 mg PO DAILY High blood pressure 12/31/22 #90 tabs Allergies Allergy/AdvReac Type Severity Reaction Status Date / Time No Known Allergies Allergy Verified 12/17/22 15:24 [facility] Disclaimer: The information contained in this section may have been updated after the patient was seen, as this information can be updated by other users. Medical History Abnormal CT scan, pelvis anal/rectal thickening Acute calculous cholecystitis GERMÁN (acute kidney injury) Anxiety Anxiety with depression Back
[2023-01-13 19:04] LABS: Microscopic, Urine URINE MICROSCOPIC (MICROSCOPIC)
[2023-01-13 19:10] LABS: Appearance,Urine CLEAR (Clear); Bilirubin,Urine Negative (Negative); Blood, Urine Negative (Negative); Color,Urine YELLOW (Yellow); Glucose,Urine (UA) 2+ (Negative); Ketones,Urine Negative (Negative); Leukocyte Esterase,Urine Negative (Negative); Nitrate,Urine Negative (Negative); PH,Urine 5.5 (5.0-8.5); Protein,Urine Negative (Negative); Specific Gravity, Urine 1.015 (1.005-1.030); Urobilinogen,Urine 0.2 EU/dl (0.2)
[2023-01-13 19:11] LABS: Troponin I < 0.01 ng/ml (0.00-0.034)
[2023-01-13 19:12] LABS: Activated Partial Thrombo Time 26.2 seconds (22.8-30.6); INR 1.07 (0.9-1.1); Prothrombin Time 11.5 seconds (10.1-12.5)
[2023-01-13 19:14] LABS: Bacteria,Urine Trace /lpf; WBC,Urine Occasional #/hpf (0-3)
--- NOTE | 2023-01-13 19:55 | PC.NURSE ---
House notified of admission
--- NOTE | 2023-01-13 19:57 | PC.NURSE ---
PATIENT ADMITTED TO [facility] TO [facility]ICE OF HOSPITALIST WITH ADMITTING DX OF GERMÁN, HYPERKALEMIA.
--- NOTE | 2023-01-13 19:58 | PC.NURSE ---
Attempted to call report. Nurse not available and will call back in 5 min
--- NOTE | 2023-01-13 20:05 | PC.NURSE ---
Report given to 2nd floor. Waiting for transport
--- NOTE | 2023-01-13 20:16 | PC.NURSE ---
2nd floor here for transport
--- NOTE | 2023-01-13 20:33 | EXP.HP ---
History of Present Illness *Admission Date: 01/13/23 *Reason for visit:: dizziness, weakness *History of present illness: This is a 62-year-old female with PMHx of diabetes, hypertension, hyperlipidemia, CKD, chronic liver disease, chronic neck and back pain, CAD presenting with dizziness started last . Patient stated that she is felt generally weak.? She has been sleeping almost all day every day.? Denies fevers or chills, nausea or vomiting, diarrhea, rash, but has been having myalgias.? Taking her medications as prescribed.? No recent travel.? Denies sensory deficits, upper extremity weakness, bowel or bladder dysfunction, or any other concerns. At ER initial evaluation included CT of the head, CTA of the neck that resulted negative. Chemistry was draw. Status hypokalemia acute on chronic kidney injury. Patient was given a bolus of IV fluid. We will admit her for further management and treatment. [facility] Disclaimer: The information contained in this section may have been updated after the patient was seen, as this information can be updated by other users. Medical History (Updated 01/13/23 @ 21:15 by Brandon Sellers APRN) Abnormal CT scan, pelvis Acute calculous cholecystitis GERMÁN (acute kidney injury) Anxiety Anxiety with depression Back pain with right-sided sciatica Bulging lumbar disc CAD (coronary artery disease) CTS (carpal tunnel syndrome) Degenerative disc disease, lumbar Dehydration Depression Diabetes mellitus, type 2 Diabetic retinopathy Diastolic dysfunction Dizziness E coli bacteremia Facet hypertrophy of lumbar region Foot pain, left Foraminal stenosis of lumbar region Gallbladder hydrops Gastroenteritis Generalized anxiety disorder Greater trochanteric bursitis of right hip HHD (hypertensive heart disease) HLD (hyperlipidemia) Hypertension Hypertensive urgency Illness Insomnia Ligamentum flavum hypertrophy Lumbar canal stenosis Major depressive disorder Neck pain Neuroforaminal stenosis of lumbar spine Obesity (BMI 30-39.9) Obesity (BMI 30.0-34.9) Pulmonary regurgitation Pulmonary vascular congestion RAD (reactive airway disease) Renal insufficiency Sacroiliitis Septic shock Severe sepsis Sinus tachycardia Spinal stenosis Splenomegaly Symptomatic cholelithiasis Thrombocytopenia Uncontrolled type 2 diabetes mellitus Surgical History History of cardiac catheterization History of cholecystectomy History of coronary artery stent placement Family History Other Cancer Family history of diabetes mellitus type II Family history of hypertension Social History Smoking Status: Never smoker second hand exposure: No alcohol intake: never substance use type: denies use current occupational status: disabled and other Travel in the last 8 weeks: None household members: none housing: house lives independently: Yes marital status: single number of children: 0 education level: high school current occupation: [employer] current occupational exposures/hazards: No caffeine: Yes Review of Systems Review of Systems Review of systems:: pertinent systems reviewed and negative unless documented below *Neurologic Neurologic: Reports system reviewed and no additional complaints, except as documented, Reports as per HPI and Reports other (trembling and weakness in legs) Meds Home Medications and Allergies Home Medications Medication Instructions Recorded Confirmed Type ergocalciferol (vitamin D2) 1,250 50,000 unit PO WEEKLY Supplement 10/24/21 01/13/23 Rx mcg (50,000 unit) capsule #12 caps blood sugar diagnostic (OneTouch #10 ea 05/22/22 01/13/23 History Ultra Test strips) aspirin 81 mg tablet,delayed 81 mg PO HS Heart disease #90 tabs 10/30/22 01/13/23 Rx release furosemide 40 mg tablet 40 m
[2023-01-13 21:55] LABS: POC Glucose,Bedside 163 (70-110)
[2023-01-13 22:06] LABS: Troponin I < 0.01 ng/ml (0.00-0.034)
[2023-01-14] VITALS (7 sets, daily range): BP systolic 129–163; BP diastolic 75–95; PULSE 78–90; RESP 18–20; TEMP 36.4–36.8; O2SAT 95–98; BMI 32.4
[2023-01-14 00:50] LABS: Troponin I < 0.01 ng/ml (0.00-0.034)
[2023-01-14 06:01] LABS: POC Glucose,Bedside 126 (70-110)
[2023-01-14 06:20] LABS: Basophils % 0.3 % (0.1-2.0); Eosinophils % 0.3 % (0.1-12.0); Hematocrit 39.2 % (37.0-47.0); Hemoglobin 12.4 g/dL (12.2-16.2); Lymphocytes # 1.2 K/mm3 (0.7-4.5); Mean Corpuscular HGB Conc 31.6 g/dL (31.8-35.4); Mean Corpuscular Volume 98.2 fl (81-99); Mean Platelet Volume 10.1 fl (7.4-10.4); Monocytes # 0.2 K/mm3 (0.1-1.0); Monocytes % 8.1 % (1.7-9.3); Neutrophils # 1.4 K/mm3 (1.8-7.8); Neutrophils % 49.3 % (37.0-80.0); Platelet Count 82 K/mm3 (142-424); Red Cell Distribution Width 14.8 % (11.5-17.5); White Blood Count 2.9 K/mm3 (4.8-10.8)
[2023-01-14 06:24] LABS: Chloride 107 mmol/L (98-107)
[2023-01-14 06:25] LABS: Potassium 4.4 mmoL/L (3.5-5.1); Sodium 142 mmol/L (136-145)
[2023-01-14 06:27] LABS: Alanine Aminotransferase 40 U/L (12-78); Albumin Level 3.1 g/dl (3.5-5.0); Albumin/Globulin Ratio 0.9 (1.1-1.8); Alkaline Phosphatase 160 U/L (38-126); Anion Gap 10.4 mEq/L (5-15); Aspartate Amino Transferase 57 U/L (14-36); Bilirubin,Total 0.6 mg/dl (0.2-1.3); Blood Urea Nitrogen 33 mg/dl (7-17); Carbon Dioxide 29 mmol/L (22.0-30.0); Creatinine Clearance Estimated 55 mL/min (50-200); Estimated Glomerular Filt Rate 33 ml/min (>60); GFR (African American) 40 ML/MIN (>60); Globulin 3.5 g/dL (1.3-3.2); Total Protein,Serum 6.6 g/dl (6.3-8.2)
[2023-01-14 06:28] LABS: Calcium 8.4 mg/dl (8.4-10.2); Glucose 131 mg/dl (74-100)
[2023-01-14 06:52] LABS: Hemoglobin A1C 6.8 % (4.0-6.0)
--- NOTE | 2023-01-14 07:29 | HMH.PHAINT1 ---
Pharmacy Intervention Comments: MEDICATION RECONCILIATION COMPLETED ON PATIENT USING EXTERNAL FILL HISTORY FROM PHARMACY AND PATIENT INTERVIEW. -ARIA DALEY, BARTOLOD
[2023-01-14 08:12] LABS: Coronavirus 19, PCR Not Detected (NotDetected); Influenza A, PCR Not Detected (NotDetected); Influenza B, PCR Not Detected (NotDetected)
--- NOTE | 2023-01-14 09:47 | HMH.PTEV ---
Physical Therapy Evaluation Rehab PT IP Evaluation Start: 01/14/23 08:35 Freq: ONCE Status: Active Protocol: Document 01/14/23 09:45 KHANG (Rec: 01/14/23 09:47 SPENCEREzTISH [id number]) Subjective/History History History 62 yowf adm to [facility] with GERMÁN and hypokalemia. Hx of DM, HTN , HLD, CKD, CLD, CAD. She reports she lives alone, no steps to enter the home, and she is generally independent with all mobility without AD. Subjective Subjective Pt has no new c/o this am. She reports B LE pain 01/04, but this is apparently typical for her. Rehab PT IP Eval Objective Appearance Patient Behavior Appropriate Patient Orientation Person,Place,Time Difficulty following instructions none Speech Pattern Clear Ambulation Patient Able to Ambulate Yes Ambulation Observation IP General Gait Pattern Observation No Deviations/Normal Ambulation Distance (feet) 250 Ambulation Assistive Device None Ambulation Ability Independent Balance Ability to Arise Able, uses arms to help Sitting Balance Steady, safe Standing Balance Steady, wide stance Dynamic Sitting Balance Ability Good Dynamic Standing Balance Ability Good Transfers Bed Transfer Ability Independent Chair Transfer Ability Independent Sit to Stand Bed Transfer Ability Independent Sit to Stand Chair Transfer Ability Independent ROM All Extremities PT ROM Status WFL MMT All Extremities PT MMT WFL Rehab PT IP prob,goals,plan Problems Date of Evaluation: 01/14/23 Discharge Plan PT Discharge Plan Pt is currently at baseline for all mobility and is appropriate to return home once medically stable for d/c. G -code Required No Eval Complexity Eval Charge Codes 34278 - High Complexity PHYSICIAN CERTIFICATION: I certify the specified therapy services for Mary Coronel are required, authorized, and reviewed every 30 days.
--- NOTE | 2023-01-14 09:50 | HMH.OTEV ---
OT Inpatient Evaluation Rehab OT IP Evaluation Start: 01/14/23 08:36 Freq: ONCE Status: Active Protocol: Document 01/14/23 09:46 SYDNIE (Rec: 01/14/23 09:50 [id number] Rehab OT IP Assessment Subjective History Pt oriented x 3 on arrival. Pt agreeable to engage in therapy evaluation. Pt admitted on 01/13/23 with GERMÁN and hyperkalemia. Prior to being in the hospital, pt lived at home alone. Pt reports she was idnependent with all ADLs and IADLs. Pt did not require any type of AE during mobility tasks. Pt also still drove. Pt has a past medical history of: diabetes, hypertension, hyperlipidemia, CKD, chronic liver disease, chronic neck and back pain, CAD Subjective I feel better now. Objective Patient Orientation Person,Place,Birthday Upper Extremity Gross ROM WFL Bed Mobility bed mobility-scooting,bed mobility - supine/sit,bed mobility - rolling Assist Level Supervision/Stand by Transfer Training Sit/Stand Transfer Assist Level Supervision/Stand by Lower Body Dressing Ability Standby Assistance Rehab OT IP prob,goals,plan Problems Date of Evaluation: 01/14/23 Rehab Potential Rehab Potential Innapropriate for Skilled Therapy Discharge Plan OT Discharge Plan At this time, pt appears to be at her baseline with ADL tasks and functional transfers . Pt can return home once medically stable per physician . Eval Complexity Eval Charge Codes 67916 - Low Complexity G Codes G -code Required No PHYSICIAN CERTIFICATION: I certify the specified therapy services for Mary Coronel are required, authorized, and reviewed every 30 days.
[2023-01-14 12:00] LABS: POC Glucose,Bedside 193 (70-110)
--- NOTE | 2023-01-14 12:36 | PC.NURSE ---
BLOOD PRESSURE AT 1200 141/90 SITTING. 145/95 SUPINE. 141/76 STANDING.
--- NOTE | 2023-01-14 12:55 | EXP.DC.SUM ---
General Admission date:: 01/13/23 Discharge date: 01/14/23 HPI HPI HPI: This is a 62-year-old female with PMHx of diabetes, hypertension, hyperlipidemia, CKD, chronic liver disease, chronic neck and back pain, CAD presenting with dizziness started last . Patient stated that she is felt generally weak.? She has been sleeping almost all day every day.? Denies fevers or chills, nausea or vomiting, diarrhea, rash, but has been having myalgias.? Taking her medications as prescribed.? No recent travel.? Denies sensory deficits, upper extremity weakness, bowel or bladder dysfunction, or any other concerns. At ER initial evaluation included CT of the head, CTA of the neck that resulted negative. Chemistry was draw. Status hypokalemia acute on chronic kidney injury. Patient was given a bolus of IV fluid. We will admit her for further management and treatment. Hospital Course Hospital Course Hospital Course: Patient admitted for weakness and rapidly diagnosed with hyperkalemia/GERMÁN superimposed on CKD. Patient volume expanded with crystalloid solution during hospitalization. Over 16-hour interval, patient received over 1.3 L crystalloid fluid. Patient also received Lokelma for hyperkalemia. Patient's potassium level normalized by time of hospital discharge. Patient evaluated by both physical therapy and Occupational Therapy 01/14/2023 around 10 AM. Patient's functional status deemed to be back to baseline per physical therapy and Occupational Therapy consultants. Patient monitored for an additional [address] Hurtado, then patient extremely anxious to be discharged from hospital [facility]. Patient subsequently discharged home with instructions to follow-up with primary care physician within 1 week of hospital discharge. Patient's home potassium supplementation was placed on hold for 30 days at time of outpatient discharge. Exam Data for Last 24 hours Vital signs and Labs for Last 24 Hours: Temp Pulse Resp BP Pulse Ox 98.0 F 90 20 145/95 H 95 01/14/23 11:51 01/14/23 12:00 01/14/23 11:51 01/14/23 11:56 01/14/23 11:51 Laboratory Results - last 24 hr 01/13/23 18:35: WBC 4.0 L, RBC 4.21, Hgb 13.0, Hct 41.1, MCV 97.6, MCH 30.9, MCHC 31.7 L, RDW 14.8, Plt Count 101 L, MPV 10.4, Neut % (Auto) 60.7, Lymph % (Auto) 31.9, Wise % (Auto) 6.7, Eos % (Auto) 0.4, Baso % (Auto) 0.2, Neut # (Auto) 2.4, Lymph # (Auto) 1.3, Wise # (Auto) 0.3, Eos # (Auto) 0.0, Baso # (Auto) 0.0 01/13/23 18:35: Sodium 141, Potassium 5.5 H, Chloride 102, Carbon Dioxide 31 H, Anion Gap 13.5, BUN 43 H, Creatinine 1.90 H, Estimated Creat Clear 47, Estimated GFR 27 L, Est GFR ( Amer) 33 L, Glucose 247 H, Calcium 8.7, Magnesium 2.1, Total Bilirubin 0.6, AST 72 H, ALT 46, Alkaline Phosphatase 145 H, Troponin I < 0.01, Total Protein 7.3, Albumin 3.7, Globulin 3.6 H, Albumin/Globulin Ratio 1.0 L 01/13/23 18:35: PT 11.5, INR 1.07, APTT 26.2 01/13/23 18:38: Urine Color Yellow, Urine Appearance Clear, Urine pH 5.5, Ur Specific [place] 1.015, Urine Protein Negative, Urine Glucose (UA) 2+, Urine Ketones Negative, Urine Blood Negative, Urine Nitrate Negative, Urine Bilirubin Negative, Urine Urobilinogen 0.2, Ur Leukocyte Esterase Negative, Urine RBC None, Urine WBC Occasional, Ur Squamous Epith Cells 5-10, Urine Bacteria Trace 01/13/23 19:27: SARS-CoV-2 (PCR) Not detected, Influenza A Untype (PCR) Not detected, Influenza Type B (PCR) Not detected 01/13/23 21:27: POC Glucose 163 H 01/13/23 21:30: Troponin I < 0.01 01/14/23 00:23: Troponin I < 0.01 01/14/23 05:46: POC Glucose 126 H 01/14/23 06:00: WBC 2.9 L D, RBC 4.00 L, Hgb 12.4, Hct 39.2, MCV 98.2, MCH 31.0, MCHC 31.6 L, RDW 14.8, Plt Count 82 L, MPV 10.1, Neut % (Auto) 49.3, Lymph % (Auto) 42.0, Wise % (Auto) 8.1, Eos % (Auto) 0.3, Baso % (Auto) 0.3, Neut # (Auto) 1.4 L, Lymph # (Auto) 1.2, Wise # (Auto) 0.2, Eos # (Auto) 0.0, Baso # (Auto) 0.0 01/14/23 06:00: Sodium 142, Potassium 4.4, Chloride 107, Carbon Dioxide 29, Anion Gap 1
--- NOTE | 2023-01-14 12:59 | HMH.PHAINT1 ---
Pharmacy Intervention Comments: MEDICATION COUNSELED FOR DISCHARGE: -POTASSIUM CHLORIDE (HOLD UNTIL 02/13/23) PATIENT HAD NO QUESTIONS ABOUT DOCTORS ORDERS -KORTNEY ORTA, PHARM STUDENT
--- NOTE | 2023-01-16 13:18 | CARE MANAGER ---
Spoke with patient related to hospital discharge. She states she is doing well and is aware of follow up appointment. Denies any questions or concerns. DAYANARA Alatorre
== END 2023-01-14 13:50 | disposition home or self-care (01) ==
LOC: UTC 18:10 → ER 18:23 → 2ND 20:28
PROVIDERS: Nurse Practitioner Family; Admitting Provider Internal Medicine; Emergency Provider Emergency Medicine; PCP Emergency Medicine; Visit Provider Internal Medicine
DX: R42 Dizziness and giddiness (principal); N17.9 Acute kidney failure, unspecified; E87.5 Hyperkalemia; I37.1 Nonrheumatic pulmonary valve insufficiency; E11.22 Type 2 diabetes mellitus with diabetic chronic kidney disease; N18.4 Chronic kidney disease, stage 4 (severe); Z79.4 Long term (current) use of insulin; I25.10 Atherosclerotic heart disease of native coronary artery without angina pectoris; M54.31 Sciatica, right side; G47.00 Insomnia, unspecified; D69.6 Thrombocytopenia, unspecified; I12.9 Hypertensive chronic kidney disease with stage 1 through stage 4 chronic kidney disease, or unspecified chronic kidney disease; Z79.899 Other long term (current) drug therapy; Z79.02 Long term (current) use of antithrombotics/antiplatelets
CPT/HCPCS: G0378; 36415; 70450; 70496; 70498; 71046; 80053; 81001; 82962; 83036; 83735; 84484; 85025; 85610; 85730; 87635; 87636; 93005; 93306; 97163; 97165; 99285; C9803; Q9967; U0003; U0005

== ENCOUNTER → 2023-02-18 14:29 | Outpatient (CLI) | payer MEDICARE, MEDICAID, SELFPAY ==
[2023-02-18 16:36] LABS: Anion Gap 8.6 mEq/L (5-15); Blood Urea Nitrogen 13 mg/dl (7-17); Carbon Dioxide 28 mmol/L (22.0-30.0); Chloride 112 mmol/L (98-107); Estimated Glomerular Filt Rate 51 ml/min (>60); GFR (African American) 61 ML/MIN (>60); Glucose 74 mg/dl (74-100); Potassium 4.6 mmoL/L (3.5-5.1); Sodium 144 mmol/L (136-145)
== END ==
PROVIDERS: PCP Emergency Medicine; Visit Provider Emergency Medicine
DX: E11.9 Type 2 diabetes mellitus without complications (principal); Z79.4 Long term (current) use of insulin
CPT/HCPCS: 36415; 80048

== ENCOUNTER → 2023-05-16 08:39 | Outpatient (CLI) | payer MEDICARE, MEDICAID, SELFPAY ==
[2023-05-16 13:50] LABS: Amphetamine/Metha Screen,Urine Negative ng/ml (<1000); Barbiturates Screen,Urine Negative ng/ml (<200)
[2023-05-16 13:51] LABS: Cannabinoid Screen,Urine Negative ng/ml (<50)
[2023-05-16 13:52] LABS: Benzodiazepines Screen,Urine Negative ng/ml (<200)
[2023-05-16 13:53] LABS: Methadone Screen,Urine Negative ng/ml (<300)
[2023-05-16 13:54] LABS: Cocaine Screen,Urine Negative ng/ml (<300)
[2023-05-16 13:55] LABS: Opiate Screen,Urine Positive ng/ml (<300); Phencyclidine Screen,Urine Negative ng/ml (<25)
== END ==
PROVIDERS: PCP Emergency Medicine; Visit Provider Emergency Medicine
DX: Z79.899 Other long term (current) drug therapy (principal)
CPT/HCPCS: 80305

== ENCOUNTER 2023-05-21 11:53 | Emergency (ER) | payer MEDICARE, MEDICAID, SELFPAY ==
[2023-05-21 12:05] VITALS: BP 173/94; PULSE 84; RESP 18; TEMP 36.7; O2SAT 98; BMI 29.0
[2023-05-21 12:23] LABS: UTC Influenza A Antigen Negative (Negative); UTC Influenza B Antigen Negative (Negative)
--- NOTE | 2023-05-21 12:40 | EXP.UTC ---
Discharge Plan Disposition Patient Disposition: Home, Self-Care Condition: Good Prescriptions Prescriptions: New benzonatate [benzonatate] 100 mg capsule 100 mg PO TIDP PRN (Reason: Cough) Qty: 30 0RF amoxicillin-pot clavulanate 875-125 mg Tablet 1 tab PO Q12H Qty: 20 0RF methylprednisolone 4 mg Tablets,Dose Pack 4 mg PO DIRECTED Qty: 21 0RF No Action (DME) OneTouch Ultra Test Strip See Rx Instructions .ROUTE .MEDSUPPLY Qty: 10 Rx Instructions: As directed Farxiga 5 mg tablet 5 mg PO DAILY insulin aspart U-100 [Novolog U-100 Insulin aspart] 100 unit/mL solution SQ (DME) Omnipod 5 G6 Pods (Gen 5) Cartridge See Rx Instructions .ROUTE .MEDSUPPLY Qty: 5 Rx Instructions: As directed gabapentin 800 mg tablet 800 mg PO TID Qty: 90 1RF hydrocodone-acetaminophen 10-325 mg tablet 1 tab PO QID Qty: 120 0RF atorvastatin [Lipitor] 10 mg tablet 10 mg PO HS Qty: 30 2RF aspirin 81 mg tablet,delayed release (DR/EC) 81 mg PO HS Qty: 90 3RF furosemide 40 mg tablet 40 mg PO BID PRN (Reason: edema) Qty: 60 5RF Ozempic 0.25 mg or 0.5 mg (2 mg/3 mL) pen injector See Rx Instructions .ROUTE .COMPLEX Qty: 3 2RF Dose Instruction: INJECT 0.25 MG SUBCUTANEOUSLY EVERY WEEK FOR 4 WEEKS. THEN MAY INCREASE TO 0.5 MG WEEKLY Rx Instructions: INJECT 0.25 MG SUBCUTANEOUSLY EVERY WEEK FOR 4 WEEKS. THEN MAY INCREASE TO 0.5 MG WEEKLY (DME) lancets [OneTouch Delica Plus Lancet] 33 gauge misc See Rx Instructions .ROUTE .COMPLEX Qty: 100 0RF Dose Instruction: USE DIRECTED TO TEST BLOOD SUGAR Rx Instructions: USE DIRECTED TO TEST BLOOD SUGAR metformin 500 mg tablet extended release 24 hr See Rx Instructions .ROUTE .COMPLEX Qty: 120 2RF Dose Instruction: TAKE 2 TABLETS BY MOUTH 2 TIMES A DAY FOR DIABETES Rx Instructions: TAKE 2 TABLETS BY MOUTH 2 TIMES A DAY FOR DIABETES (DME) pen needle, diabetic [BD Ultra-Fine Mini Pen Needle] 31 gauge x 3/16 needle See Rx Instructions .Route Qty: 100 1RF Rx Instructions: As directed spironolactone 25 mg tablet See Rx Instructions .ROUTE .COMPLEX Qty: 90 1RF Dose Instruction: TAKE ONE TABLET BY MOUTH ONCE A DAY Rx Instructions: TAKE ONE TABLET BY MOUTH ONCE A DAY hydroxyzine pamoate 50 mg capsule 50 mg PO HSP PRN (Reason: sleep) 90 Days Qty: 90 0RF bisoprolol fumarate 10 mg tablet 10 mg PO BID Qty: 180 3RF vortioxetine 20 mg tablet 20 mg PO DAILY Qty: 90 0RF lisinopril 10 mg tablet 10 mg PO DAILY Qty: 90 3RF clopidogrel 75 mg tablet 75 mg PO DAILY (DME) lancets [OneTouch Delica Plus Lancet] 33 gauge misc See Rx Instructions .ROUTE .COMPLEX Rx Instructions: USE DIRECTED TO TEST BLOOD SUGAR Referrals Follow up/Referrals: Larry Bedolla MD [Primary Care Provider] - See instructions Activity Restrictions/Add. Instructions Additional Instructions/Restrictions: Drink plenty of fluids. Take tylenol or ibuprofen for pain or fever. Take the medications as directed. Follow up with your regular doctor. GO TO THE ER FOR ANY WORSENING SYMPTOMS Clinical Impressions Clinical Impression: Acute bronchitis Instructions Patient Instructions: Acute Bronchitis, DI for Acute Bronchitis Discharge ED Provider: Nikolai Beckett [facility] General Stated complaint: cough, congestion, chills Mode of Arrival: Ambulatory Source of Information: Patient Limitations: No Limitations Time Seen by Provider: 05/21/23 12:40 Description of Symptoms (Recalled from Triage Doc. by RN): cough, chills, hot flashes, and body aches HEENT Symptoms (Recalled from RN notes): Yes Resp Symptoms (Recalled from RN notes): No Skin Symptoms (Recalled from RN notes): No MS Symptoms (Recalled from RN notes): No Functional Status (Recalled from RN notes): n/a Related Data Home Medications Medication Ins
[2023-05-21 13:02] VITALS: BP 179/94; PULSE 84; RESP 18; TEMP 36.7; O2SAT 98
== END 2023-05-21 13:02 | disposition home or self-care (01) ==
PROVIDERS: Emergency Provider Nurse Practitioner Family; PCP Emergency Medicine
DX: J20.9 Acute bronchitis, unspecified (principal); E11.9 Type 2 diabetes mellitus without complications; I25.10 Atherosclerotic heart disease of native coronary artery without angina pectoris; I11.9 Hypertensive heart disease without heart failure; E78.5 Hyperlipidemia, unspecified; J45.909 Unspecified asthma, uncomplicated; F41.1 Generalized anxiety disorder; F33.9 Major depressive disorder, recurrent, unspecified; Z79.4 Long term (current) use of insulin
CPT/HCPCS: 87635; 87804; 99212; 99214; G0463

== ENCOUNTER → 2023-05-29 08:10 | Outpatient (CLI) | payer MEDICARE, MEDICAID, SELFPAY ==
--- NOTE | 2023-05-29 08:15 | XR_ITS ---
FINAL REPORT CLINICAL HISTORY: Rt Shoulder Pain COMPARISON: None FINDINGS: RIGHT SHOULDER Three views demonstrate no acute fracture or dislocation. There is mild degenerative change of the acromioclavicular joint and left glenohumeral joint. The visualized bony structures are well aligned. There is a small calcification adjacent to the posterior glenoid that may represent a loose body within the glenohumeral joint. No soft tissue abnormality is seen. There is a external implanted device present on the surface of the right proximal arm, lateral aspect. IMPRESSION: No acute bony abnormality identified. Degenerative change as described above. Reviewed, Interpreted and Dictated by Ronnell Tom III, MD Transcribed by Tabitha Kincaid Authenticated and [facility]
== END ==
PROVIDERS: PCP Emergency Medicine; Visit Provider Orthopaedic Surgery
DX: M25.511 Pain in right shoulder (principal)
CPT/HCPCS: 73030

== ENCOUNTER → 2023-06-05 11:24 | Outpatient (CLI) | payer MEDICARE, MEDICAID, SELFPAY ==
[2023-06-05 11:43] LABS: Basophils % 0.2 % (0.1-2.0); Eosinophils % 1.2 % (0.1-12.0); Hemoglobin 12.8 g/dL (12.2-16.2); Lymphocytes % 34.5 % (10-50); Mean Corpuscular HGB Conc 32.9 g/dL (31.8-35.4); Mean Corpuscular Hemoglobin 33.5 pg (27.0-31.2); Mean Platelet Volume 10.2 fl (7.4-10.4); Monocytes # 0.2 K/mm3 (0.1-1.0); Monocytes % 6.4 % (1.7-9.3); Neutrophils # 1.7 K/mm3 (1.8-7.8); Neutrophils % 57.7 % (37.0-80.0); Platelet Count 63 K/mm3 (142-424); Red Blood Count 3.82 M/mm3 (4.20-5.40); Red Cell Distribution Width 14.6 % (11.5-17.5)
[2023-06-05 13:00] LABS: Alanine Aminotransferase 51 U/L (12-78); Albumin Level 3.6 g/dl (3.5-5.0); Albumin/Globulin Ratio 1.1 (1.1-1.8); Alkaline Phosphatase 145 U/L (38-126); Anion Gap 14.5 mEq/L (5-15); Aspartate Amino Transferase 59 U/L (14-36); Bilirubin,Total 0.7 mg/dl (0.2-1.3); Blood Urea Nitrogen 23 mg/dl (7-17); Carbon Dioxide 27 mmol/L (22.0-30.0); Chloride 107 mmol/L (98-107); Estimated Glomerular Filt Rate 33 ml/min (>60); GFR (African American) 40 ML/MIN (>60); Globulin 3.3 g/dL (1.3-3.2); Glucose 261 mg/dl (74-100); Potassium 4.5 mmoL/L (3.5-5.1); Sodium 144 mmol/L (136-145); Total Protein,Serum 6.9 g/dl (6.3-8.2)
[2023-06-05 14:08] LABS: Vitamin B12 600 pg/mL (239-931)
[2023-06-05 14:11] LABS: Folate 9.38 ng/mL
[2023-06-05 23:22] LABS: Iron 91 ug/dL (37-170)
[2023-06-05 23:31] LABS: Total Iron Binding Capacity 304 ug/dL (265-497)
[2023-06-05 23:58] LABS: Ferritin 56.1 ng/ml (11.1-264)
== END ==
PROVIDERS: PCP Emergency Medicine; Visit Provider Internal Medicine Medical Oncology
DX: D50.9 Iron deficiency anemia, unspecified (principal)
CPT/HCPCS: 80053; 82607; 82728; 82746; 83540; 83550; 85025

== ENCOUNTER → 2023-06-06 07:57 | Outpatient (CLI) | payer MEDICARE, MEDICAID, SELFPAY ==
--- NOTE | 2023-06-06 08:02 | US_ITS ---
FINAL REPORT TECHNIQUE: Sonographic images of the right upper quadrant were obtained. CLINICAL HISTORY: STAGE 3 HEPATIC FIBROSIS COMPARISON: 07/11/2021 FINDINGS: PANCREAS: Unremarkable. LIVER: Coarsened echotexture. No focal hepatic lesion. No intrahepatic biliary ductal dilatation. GALLBLADDER: Absent COMMON DUCT: 3 mm. Normal for age. RIGHT KIDNEY: The right kidney measures 8.3 cm. There is no hydronephrosis, mass, or stone. FREE FLUID: None. IMPRESSION: Coarsened liver echotexture without focal lesion. Reviewed, Interpreted and Dictated by Lizzie Myles MD Transcribed by Angelica Woodall Authenticated and [facility]
== END ==
PROVIDERS: PCP Emergency Medicine; Visit Provider Physician Assistant
DX: K74.02 Hepatic fibrosis, advanced fibrosis (principal)
CPT/HCPCS: 76705

== ENCOUNTER 2023-06-20 13:36 | Emergency (ER) | payer MEDICARE, MEDICAID, SELFPAY ==
--- NOTE | 2023-06-20 14:38 | EXP.UTC ---
Discharge Plan Disposition Patient Disposition: Home, Self-Care Condition: Good Prescriptions Prescriptions: New amoxicillin [amoxicillin] 875 mg tablet 875 mg PO Q12H Qty: 20 0RF No Action (DME) OneTouch Ultra Test Strip See Rx Instructions .ROUTE .MEDSUPPLY Qty: 10 Rx Instructions: As directed Farxiga 5 mg tablet 5 mg PO DAILY insulin aspart U-100 [Novolog U-100 Insulin aspart] 100 unit/mL solution SQ (DME) Omnipod 5 G6 Pods (Gen 5) Cartridge See Rx Instructions .ROUTE .MEDSUPPLY Qty: 5 Rx Instructions: As directed gabapentin 800 mg tablet 800 mg PO TID Qty: 90 1RF hydrocodone-acetaminophen 10-325 mg tablet 1 tab PO QID Qty: 120 0RF atorvastatin [Lipitor] 10 mg tablet 10 mg PO HS Qty: 30 2RF Xifaxan 550 mg tablet PO meloxicam 15 mg tablet 15 mg PO DAILY Qty: 30 2RF aspirin 81 mg tablet,delayed release (DR/EC) 81 mg PO HS Qty: 90 3RF (DME) lancets [OneTouch Delica Plus Lancet] 33 gauge misc See Rx Instructions .ROUTE .COMPLEX Qty: 100 0RF Dose Instruction: USE DIRECTED TO TEST BLOOD SUGAR Rx Instructions: USE DIRECTED TO TEST BLOOD SUGAR metformin 500 mg tablet extended release 24 hr See Rx Instructions .ROUTE .COMPLEX Qty: 120 2RF Dose Instruction: TAKE 2 TABLETS BY MOUTH 2 TIMES A DAY FOR DIABETES Rx Instructions: TAKE 2 TABLETS BY MOUTH 2 TIMES A DAY FOR DIABETES (DME) pen needle, diabetic [BD Ultra-Fine Mini Pen Needle] 31 gauge x 3/16 needle See Rx Instructions .Route Qty: 100 1RF Rx Instructions: As directed spironolactone 25 mg tablet See Rx Instructions .ROUTE .COMPLEX Qty: 90 1RF Dose Instruction: TAKE ONE TABLET BY MOUTH ONCE A DAY Rx Instructions: TAKE ONE TABLET BY MOUTH ONCE A DAY hydroxyzine pamoate 50 mg capsule 50 mg PO HSP PRN (Reason: sleep) 90 Days Qty: 90 0RF bisoprolol fumarate 10 mg tablet 10 mg PO BID Qty: 180 3RF vortioxetine 20 mg tablet 20 mg PO DAILY Qty: 90 0RF lisinopril 10 mg tablet 10 mg PO DAILY Qty: 90 3RF Ozempic 0.25 mg or 0.5 mg (2 mg/3 mL) pen injector See Rx Instructions .ROUTE .COMPLEX Qty: 3 0RF Dose Instruction: INJECT 0.25 MG SUBCUTANEOUSLY EVERY WEEK FOR 4 WEEKS. THEN MAY INCREASE TO 0.5 MG WEEKLY Rx Instructions: INJECT 0.25 MG SUBCUTANEOUSLY EVERY WEEK FOR 4 WEEKS. THEN MAY INCREASE TO 0.5 MG WEEKLY clopidogrel 75 mg tablet See Rx Instructions .ROUTE .COMPLEX Qty: 30 5RF Dose Instruction: TAKE ONE TABLET BY MOUTH ONCE A DAY FOR PLATELET INHIBITOR Rx Instructions: TAKE ONE TABLET BY MOUTH ONCE A DAY FOR PLATELET INHIBITOR furosemide 40 mg tablet See Rx Instructions .ROUTE .COMPLEX Qty: 60 3RF Dose Instruction: TAKE ONE TABLET BY MOUTH 2 TIMES A DAY NEEDED FOR EDEMA Rx Instructions: TAKE ONE TABLET BY MOUTH 2 TIMES A DAY NEEDED FOR EDEMA (DME) lancets [OneTouch Delica Plus Lancet] 33 gauge misc See Rx Instructions .ROUTE .COMPLEX Rx Instructions: USE DIRECTED TO TEST BLOOD SUGAR benzonatate [benzonatate] 100 mg capsule 100 mg PO TIDP PRN (Reason: Cough) Qty: 30 0RF amoxicillin-pot clavulanate 875-125 mg Tablet 1 tab PO Q12H Qty: 20 0RF Referrals Follow up/Referrals: Larry Bedolla MD [Primary Care Provider] - See instructions Activity Restrictions/Add. Instructions Additional Instructions/Restrictions: Take tylenol or ibuprofen for pain or fever. Take the medications as directed. Follow up with your regular doctor. GO TO THE ER FOR ANY WORSENING SYMPTOMS Follow up with your dentist. Clinical Impressions Clinical Impression: Pain, dental, Jaw pain Instructions Patient Instructions: DI for Dental Pain, Amoxicillin Discharge ED Provider: Nikolai Beckett [facility] [place] Stated complaint: Right side pain in jaw, and cheek bone Time Seen by Provider:
[2023-06-20 14:40] VITALS: BP 140/83; PULSE 73; RESP 20; TEMP 36.6; O2SAT 95; BMI 31.9
[2023-06-20 15:14] VITALS: BP 140/83; PULSE 73; RESP 20; TEMP 36.6; O2SAT 95
== END 2023-06-20 15:15 | disposition home or self-care (01) ==
PROVIDERS: Emergency Provider Nurse Practitioner Family; PCP Emergency Medicine
DX: R68.84 Jaw pain (principal); K08.89 Other specified disorders of teeth and supporting structures; I25.10 Atherosclerotic heart disease of native coronary artery without angina pectoris; I11.9 Hypertensive heart disease without heart failure; E78.5 Hyperlipidemia, unspecified; E11.9 Type 2 diabetes mellitus without complications; Z79.4 Long term (current) use of insulin; E66.9 Obesity, unspecified
CPT/HCPCS: 99212; 99214; G0463

== ENCOUNTER → 2023-07-14 11:57 | Outpatient (CLI) | payer MEDICARE, MEDICAID, SELFPAY ==
[2023-07-14 12:03] LABS: Chol/HDL Ratio 4.1 (1-3.5); Cholesterol 143 mg/dl (140-200); HDL Cholesterol 35 mg/dl (40-60); Triglycerides 103 mg/dl (30-150); VLDL Cholesterol 21 mg/dL (0-40)
[2023-07-14 12:06] LABS: Basophils % 0.2 % (0.1-2.0); Eosinophils % 0.1 % (0.1-12.0); Hematocrit 41.5 % (37.0-47.0); Hemoglobin 13.5 g/dL (12.2-16.2); Lymphocytes # 0.9 K/mm3 (0.7-4.5); Lymphocytes % 28.8 % (10-50); Mean Corpuscular HGB Conc 32.5 g/dL (31.8-35.4); Mean Corpuscular Hemoglobin 32.5 pg (27.0-31.2); Mean Corpuscular Volume 100.2 fl (81-99); Mean Platelet Volume 8.4 fl (7.4-10.4); Monocytes # 0.2 K/mm3 (0.1-1.0); Monocytes % 5.6 % (1.7-9.3); Neutrophils # 2.1 K/mm3 (1.8-7.8); Neutrophils % 65.3 % (37.0-80.0); Platelet Count 89 K/mm3 (142-424); Red Blood Count 4.14 M/mm3 (4.20-5.40); Red Cell Distribution Width 14.4 % (11.5-17.5); White Blood Count 3.2 K/mm3 (4.8-10.8)
[2023-07-14 12:09] LABS: Amphetamine/Metha Screen,Urine Negative ng/ml (<1000)
[2023-07-14 12:10] LABS: Barbiturates Screen,Urine Negative ng/ml (<200)
[2023-07-14 12:11] LABS: Cannabinoid Screen,Urine Negative ng/ml (<50); Methadone Screen,Urine Negative ng/ml (<300)
[2023-07-14 12:12] LABS: Cocaine Screen,Urine Negative ng/ml (<300)
[2023-07-14 12:13] LABS: Direct LDL Cholesterol 84.64 mg/dL (100-129)
[2023-07-14 12:15] LABS: Opiate Screen,Urine Positive ng/ml (<300); Phencyclidine Screen,Urine Negative ng/ml (<25)
[2023-07-14 12:20] LABS: Benzodiazepines Screen,Urine Negative ng/ml (<200)
[2023-07-14 14:48] LABS: Hemoglobin A1C 6.5 % (4.0-6.0)
[2023-07-14 15:14] LABS: Creatinine,Urine Random 420 mg/dL (Not Estab.); Microalbumin/Creatinine Ratio 20.2
[2023-07-16 11:41] LABS: Peripheral Smear Review Scanned Result
== END ==
PROVIDERS: PCP Internal Medicine; Visit Provider Internal Medicine
DX: M47.22 Other spondylosis with radiculopathy, cervical region (principal); E11.22 Type 2 diabetes mellitus with diabetic chronic kidney disease; E66.9 Obesity, unspecified; G62.9 Polyneuropathy, unspecified; N18.4 Chronic kidney disease, stage 4 (severe); Z79.4 Long term (current) use of insulin; Z68.32 Body mass index [BMI] 32.0-32.9, adult
CPT/HCPCS: 80061; 80305; 82043; 82570; 83036; 85025

== ENCOUNTER → 2023-07-15 09:00 | Outpatient (CLI) | payer MEDICARE, MEDICAID, SELFPAY ==
--- NOTE | 2023-07-15 09:29 | XR_ITS ---
FINAL REPORT CLINICAL HISTORY: pain COMPARISON: None FINDINGS: RIGHT FOOT 3 views of the right foot were obtained. There is no acute fracture or dislocation. Visualized joint spaces are normally aligned. Soft tissues are unremarkable. There is a large plantar calcaneal spur present. A small spur projects from the posterior calcaneal tuberosity consistent with a Dali deformity. IMPRESSION: No acute bony abnormality. Plantar calcaneal spurs. Reviewed, Interpreted and Dictated by Dre Keenan MD Transcribed by Tabitha Kincaid Authenticated and [facility]
--- NOTE | 2023-07-15 09:29 | XR_ITS ---
FINAL REPORT CLINICAL HISTORY: bruising and sore on the foot and ankle COMPARISON: None FINDINGS: LEFT FOOT Three views of the left foot demonstrate no acute fracture or dislocation. The visualized joint spaces are normally aligned. The soft tissues are unremarkable. A large plantar calcaneal spur is present. There is also a small spur of the calcaneal tuberosity posteriorly, consistent with a small Dali deformity. IMPRESSION: No acute bony abnormality. Plantar calcaneal spurs. Reviewed, Interpreted and Dictated by Dre Keenan MD Transcribed by Tabitha Kincaid Authenticated and [facility]
--- NOTE | 2023-07-15 09:29 | XR_ITS ---
FINAL REPORT CLINICAL HISTORY: sore on ankle unknown origin COMPARISON: None FINDINGS: LEFT ANKLE Three views demonstrate no acute fracture or dislocation. The visualized joint spaces are normally aligned. The soft tissues are unremarkable. A large plantar calcaneal spur is present. IMPRESSION: No acute bony abnormality. Reviewed, Interpreted and Dictated by Dre Keenan MD Transcribed by Tabitha Kincaid Authenticated and . [facility]
--- NOTE | 2023-07-15 09:29 | XR_ITS ---
FINAL REPORT CLINICAL HISTORY: pain and numbness COMPARISON: None FINDINGS: RIGHT ANKLE 3 views of the right ankle were obtained. There is no acute fracture or dislocation. The mortise is intact. Visualized joint spaces are normally aligned. Soft tissues are unremarkable. Large plantar calcaneal spur. IMPRESSION: No acute bony abnormality. Reviewed, Interpreted and Dictated by Dre Keenan MD Transcribed by Tabitha Kincaid Authenticated and [facility]
[2023-07-15 10:19] LABS: Erythrocyte Sedimentation Rate 34 mm/hr (0-30)
[2023-07-15 10:27] LABS: C-Reactive Protein 3.1 mg/L (0-4)
== END ==
LOC: LAB 09:02
PROVIDERS: PCP Internal Medicine; Visit Provider Nurse Practitioner Family
DX: L08.9 Local infection of the skin and subcutaneous tissue, unspecified (principal); S90.519A Abrasion, unspecified ankle, initial encounter; L98.9 Disorder of the skin and subcutaneous tissue, unspecified; E11.42 Type 2 diabetes mellitus with diabetic polyneuropathy; T14.8XXA Other injury of unspecified body region, initial encounter; Z79.4 Long term (current) use of insulin; Z79.84 Long term (current) use of oral hypoglycemic drugs; Z79.85 Long-term (current) use of injectable non-insulin antidiabetic drugs; Y99.9 Unspecified external cause status
CPT/HCPCS: 36415; 73610; 73630; 85651; 86140

== ENCOUNTER → 2023-07-17 12:55 | Outpatient (CLI) | payer MEDICARE, MEDICAID, SELFPAY ==
--- NOTE | 2023-07-17 12:55 | CA_ITS ---
FINAL REPORT TECHNIQUE: extremity venous duplex was performed with augmentation and compression. CLINICAL HISTORY: decreased pulses, Pedal edema without pain, DM neuropathy COMPARISON: None FINDINGS: Proper flow is seen throughout the deep venous system. There is no evidence of deep venous thrombosis. IMPRESSION: No evidence deep venous thrombosis in the bilateral lower extremities. Reviewed, Interpreted and Dictated by Dre Keenan MD Transcribed by Shara Sanchez Authenticated and . [facility]
== END ==
PROVIDERS: PCP Internal Medicine; Visit Provider Internal Medicine
DX: R60.0 Localized edema (principal)
CPT/HCPCS: 93970

== ENCOUNTER 2023-08-18 12:17 | Outpatient (CLI) | payer MEDICARE, MEDICAID, SELFPAY ==
[2023-08-18 18:24] LABS: Amphetamine/Metha Screen,Urine Negative ng/ml (<1000); Barbiturates Screen,Urine Negative ng/ml (<200); Benzodiazepines Screen,Urine Negative ng/ml (<200); Cannabinoid Screen,Urine Negative ng/ml (<50); Cocaine Screen,Urine Negative ng/ml (<300); Methadone Screen,Urine Negative ng/ml (<300); Opiate Screen,Urine Positive ng/ml (<300); Phencyclidine Screen,Urine Negative ng/ml (<25)
== END 2023-08-18 23:59 ==
LOC: LAB.DROPOF 12:18
PROVIDERS: PCP Internal Medicine; Visit Provider Internal Medicine
DX: Z79.899 Other long term (current) drug therapy (principal)
CPT/HCPCS: 80307

== ENCOUNTER 2023-09-12 10:48 | Emergency (ER) | payer MEDICARE, MEDICAID, SELFPAY ==
[2023-09-12 11:00] VITALS: BP 138/100; PULSE 86; RESP 23; TEMP 36.7; O2SAT 99; BMI 31.6
--- NOTE | 2023-09-12 11:12 | ED_ITS ---
Discharge Plan Disposition Patient Disposition: Home, Self-Care Condition: Good Prescriptions Prescriptions: No Action (DME) OneTouch Ultra Test Strip See Rx Instructions .ROUTE .MEDSUPPLY Qty: 10 Rx Instructions: As directed Farxiga 5 mg tablet 5 mg PO DAILY insulin aspart U-100 [Novolog U-100 Insulin aspart] 100 unit/mL solution SQ (DME) Omnipod 5 G6 Pods (Gen 5) Cartridge See Rx Instructions .ROUTE .MEDSUPPLY Qty: 5 Rx Instructions: As directed atorvastatin 10 mg tablet 20 mg PO DAILY 60 Days Qty: 120 2RF gabapentin 800 mg tablet See Rx Instructions .ROUTE .COMPLEX Qty: 90 0RF Dose Instruction: TAKE ONE TABLET BY MOUTH 3 TIMES A DAY FOR PAIN Rx Instructions: TAKE ONE TABLET BY MOUTH 3 TIMES A DAY FOR PAIN hydrocodone-acetaminophen 10-325 mg tablet 1 tab PO QID Qty: 120 0RF mupirocin 2 % ointment 1 applic topical BID 14 Days Qty: 15 0RF doxycycline hyclate 100 mg capsule 100 mg PO BID 7 Days Qty: 14 0RF mupirocin 2 % ointment 1 applic topical TID Qty: 22 2RF Xifaxan 550 mg tablet PO aspirin 81 mg tablet,delayed release (DR/EC) 81 mg PO HS Qty: 90 3RF (DME) lancets [OneTouch Delica Plus Lancet] 33 gauge misc See Rx Instructions .ROUTE .COMPLEX Qty: 100 0RF Dose Instruction: USE DIRECTED TO TEST BLOOD SUGAR Rx Instructions: USE DIRECTED TO TEST BLOOD SUGAR metformin 500 mg tablet extended release 24 hr See Rx Instructions .ROUTE .COMPLEX Qty: 120 2RF Dose Instruction: TAKE 2 TABLETS BY MOUTH 2 TIMES A DAY FOR DIABETES Rx Instructions: TAKE 2 TABLETS BY MOUTH 2 TIMES A DAY FOR DIABETES (DME) pen needle, diabetic [BD Ultra-Fine Mini Pen Needle] 31 gauge x 3/16 needle See Rx Instructions .Route Qty: 100 1RF Rx Instructions: As directed bisoprolol fumarate 10 mg tablet 10 mg PO BID Qty: 180 3RF lisinopril 10 mg tablet 10 mg PO DAILY Qty: 90 3RF clopidogrel 75 mg tablet See Rx Instructions .ROUTE .COMPLEX Qty: 30 5RF Dose Instruction: TAKE ONE TABLET BY MOUTH ONCE A DAY FOR PLATELET INHIBITOR Rx Instructions: TAKE ONE TABLET BY MOUTH ONCE A DAY FOR PLATELET INHIBITOR furosemide 40 mg tablet See Rx Instructions .ROUTE .COMPLEX Qty: 60 3RF Dose Instruction: TAKE ONE TABLET BY MOUTH 2 TIMES A DAY NEEDED FOR EDEMA Rx Instructions: TAKE ONE TABLET BY MOUTH 2 TIMES A DAY NEEDED FOR EDEMA Ozempic 0.25 mg or 0.5 mg (2 mg/3 mL) pen injector See Rx Instructions .ROUTE .COMPLEX Qty: 3 2RF Dose Instruction: INJECT 0.5 MG SUBCUTANEOUSLY EVERY WEEK Rx Instructions: INJECT 0.5 MG SUBCUTANEOUSLY EVERY WEEK hydroxyzine pamoate 50 mg capsule 50 mg PO HSP PRN (Reason: sleep) 90 Days Qty: 90 0RF spironolactone 25 mg tablet 25 mg PO DAILY Qty: 90 3RF meloxicam 15 mg tablet See Rx Instructions .ROUTE .COMPLEX Qty: 30 0RF Dose Instruction: TAKE ONE TABLET BY MOUTH ONCE A DAY Rx Instructions: TAKE ONE TABLET BY MOUTH ONCE A DAY Trintellix 20 mg tablet See Rx Instructions .ROUTE .COMPLEX Qty: 30 0RF Dose Instruction: TAKE ONE TABLET BY MOUTH ONCE A DAY FOR MOOD Rx Instructions: TAKE ONE TABLET BY MOUTH ONCE A DAY FOR MOOD (DME) lancets [OneTouch Delica Plus Lancet] 33 gauge misc See Rx Instructions .ROUTE .COMPLEX Rx Instructions: USE DIRECTED TO TEST BLOOD SUGAR Referrals Follow up/Referrals: Connor Dimas, DO [Primary Care Provider] - See instructions Activity Restrictions/Add. Instructions Additional Instructions/Restrictions: *Monitor Temp, Over the counter Motrin or Tylenol as directed/as needed Tylenol every 4 hours and Motrin every 6 hours (as long as your family doctor has told you that you can take it) for fever or pain. and straight to ER if unable to lower temp less than 101.0 after medication given *Warm salt water gargles may help to soothe the throat *Throat Lozenges? *Warm fluids like tea with honey may help to soothe the throat? *Sleep elevated *Humidifier/Vaporizer *Flonase 2 sprays in each nostril daily but be aware that it may take 2-3 days before you notice improvement *Bromfed may cause drowsiness. Know how it effects you (your child) before driving, caring for small child, or sending your child to school. Not other antihistamines/allergy medications while taking bromfed Your throat swab was sent for culture. Those results are typically sent to your primary care. Be sure to follow up in 2-3 days with your family doctor/primary care physician if no improvement so they can review those result and treat if necessary. If you don?t have a primary care doctor, I recommend you get one but in the mean time, you will have to return to a walk in clinic Follow up IMMEDIATELY for new or worsening symptoms or no Noticeable improvement over the next 48-72 hours. 911 for difficulty breathing or swallowing You were tested for today for COVID19 your test result should be back in the next 24hours, you may check your results on the [facility] if your COVID is positive you must Quarantine for 5 days Clinical Impressions Clinical Impression: Viral syndrome Instructions Patient Instructions: DI for Viral Syndrome, DI for COVID-19 (Suspected or Confirmed ) Discharge ED Provider: Karlie Maxwell [facility] HPI General Stated complaint: sore throat, DUFFY, runny nose Mode of Arrival: Ambulatory Source of Information: Patient Limitations: No Limitations Time Seen by Provider: 09/12/23 11:12 Description of Symptoms (Recalled from Triage Doc. by RN): PATIENT C/O RUNNY NOSE, HEADACHE, SORE THROAT, AND BREATHING HARD X 2 DAYS HEENT Symptoms (Recalled from RN notes): Yes Resp Symptoms (Recalled from RN notes): Yes Skin Symptoms (Recalled from RN notes): No MS Symptoms (Recalled from RN notes): No Functional Status (Recalled from RN notes): WNL History of Present Illness Provider Complaint: Patient states that for the last couple of days she has been having sore throat, headache, nasal congestion, body aches, and over all not feeling well States that she was around her sister that just tested positive for COVID so today when she wasnt feeling any better she came in Related Data Home Medications Medication Instructions Recorded Confirmed blood sugar diagnostic ([employer] #10 ea 05/22/22 09/03/23 Ultra Test strips) dapagliflozin propanediol 5 mg 5 mg PO DAILY Diabetes 12/04/22 09/03/23 tablet (Farxiga) lancets 33 gauge (OneTouch Delica 01/13/23 09/03/23 Plus Lancet) insulin aspart U-100 100 unit/mL SQ 05/16/23 09/03/23 subcutaneous solution (Novolog U-100 Insulin aspart) insulin pump cart,automated,BT #5 ea 05/16/23 09/03/23 (Omnipod 5 G6 Pods (Gen 5) subcutaneous cartridge) rifaximin 550 mg tablet (Xifaxan) mg PO 05/27/23 09/03/23 Previous Rx's Medication Instructions Recorded aspirin 81 mg tablet,delayed 81 mg PO HS Heart disease #90 tabs 10/30/22 release lancets 33 gauge (OneTouch Delica #100 ea 02/04/23 Plus Lancet) metformin 500 mg tablet,extended See Rx Instructions .Route 03/28/23 release 24 hr .COMPLEX #120 tabs pen needle, diabetic 31 gauge x #100 ea 03/28/2310/10 (BD Ultra-Fine Mini Pen Needle) bisoprolol fumarate 10 mg tablet 10 mg PO BID High blood pressure 04/18/23 #180 tabs lisinopril 10 mg tablet 10 mg PO DAILY High blood pressure 05/21/23 #90 tabs clopidogrel 75 mg tablet See Rx Instructions .Route 05/29/23 .COMPLEX #30 tabs furosemide 40 mg tablet See Rx Instructions .Route 05/29/23 .COMPLEX #60 tabs semaglutide 0.25 mg or 0.5 mg (2 See Rx Instructions .Route 06/25/23 mg/3 mL) subcutaneous pen injector .COMPLEX #3 mL (Ozempic) hydroxyzine pamoate 50 mg capsule 50 mg PO HSP PRN sleep 90 days #90 07/02/23 caps spironolactone 25 mg tablet 25 mg PO DAILY #90 tabs 07/16/23 doxycycline hyclate 100 mg capsule 100 mg PO BID left ankle wound 7 07/17/23 days #14 caps mupirocin 2 % topical ointment 1 applic topical BID left medial 07/17/23 ankle wound 14 days #15 grams atorvastatin 10 mg tablet 20 mg PO DAILY 60 days #120 tabs 08/18/23 gabapentin 800 mg tablet See Rx Instructions .Route 08/18/23 .COMPLEX #90 tabs hydrocodone 10 mg-acetaminophen 1 tab PO QID Pain #120 tabs 08/18/23 325 mg tablet meloxicam 15 mg tablet See Rx Instructions .Route 08/26/23 .COMPLEX #30 tabs vortioxetine 20 mg tablet See Rx Instructions .Route 08/27/23 (Trintellix) .COMPLEX #30 tabs mupirocin 2 % topical ointment 1 applic topical TID infection #22 09/02/23 grams Allergies Allergy/AdvReac Type Severity Reaction Status Date / Time No Known Allergies Allergy Verified 09/03/23 14:00 Worker's Comp Is this a Worker's Comp case?: No [facility] Disclaimer: The information contained in this section may have been updated after the patient was seen, as this information can be updated by other users. Medical History Abnormal CT scan, pelvis anal/rectal thickening Acute calculous cholecystitis GERMÁN (acute kidney injury) Anxiety Anxiety with depression Back pain with right-sided sciatica Patient has multiple reasons to have neuropathic pain in the lower extremities. But she also has back pain as well. We will check x-rays of the LS spine. She will send her to see Dr. Bernardo for potential procedures and other therapies that he may deem beneficial. Bulging lumbar disc CAD (coronary artery disease) CTS (carpal tunnel syndrome) Degenerative disc disease, lumbar Dehydration Depression Diabetes mellitus, type 2 Diabetic retinopathy Diastolic dysfunction Dizziness E coli bacteremia Facet hypertrophy of lumbar region Foot pain, left Foraminal stenosis of lumbar region Gallbladder hydrops Gastroenteritis Generalized anxiety disorder Patient is following up with Rea Garcia and her team. She is vortioxetine for her psychiatric issues. This is keeping her fairly stable. Greater trochanteric bursitis of right hip HHD (hypertensive heart disease) HLD (hyperlipidemia) Last lipid panel was done March 2022. This showed a triglyceride of 132 total cholesterol of 149 LDL of 81 and an HDL of 35. Repeat lipid panel June 2023 revealed a triglyceride of 103 total cholesterol 143 LDL of 84 and HDL 35. Patient is only on 10 mg of atorvastatin per day. Will increase this to 20 and will be getting closer to the goal of an LDL less than 70. Hypertension Hypertensive urgency Illness Insomnia Ligamentum flavum hypertrophy Lumbar canal stenosis Major depressive disorder Neck pain Neuroforaminal stenosis of lumbar spine Obesity (BMI 30-39.9) Obesity (BMI 30.0-34.9) Pulmonary regurgitation Pulmonary vascular congestion RAD (reactive airway disease) Renal insufficiency Sacroiliitis Septic shock Severe sepsis Sinus tachycardia Spinal stenosis Splenomegaly Symptomatic cholelithiasis Thrombocytopenia Uncontrolled type 2 diabetes mellitus Surgical History History of cardiac catheterization History of cholecystectomy History of coronary artery stent placement Family History Other Cancer Family history of diabetes mellitus type II Family history of hypertension Social History Smoking Status: Never smoker second hand exposure: No alcohol intake: never substance use type: denies use current occupational status: disabled and other Travel in the last 8 weeks: None household members: none housing: house lives independently: Yes marital status: single number of children: 0 education level: high school current occupation: [employer] current occupational exposures/hazards: No caffeine: Yes ROS Obtained: Yes All systems reviewed & no additional complaints except as documented and Yes Systems reviewed as appropriate & no additional complaints except as documented Constitutional Constitutional: Reports system reviewed and no additional complaints, except as documented, Reports as per HPI, Reports body ache, Reports chills, Reports fever(s) and Reports headache(s) ENT Ears, Nose, Mouth, and Throat: Reports system reviewed and no additional complaints, except as documented, Reports as per HPI, Reports headache(s), Reports nasal congestion, Reports nasal discharge and Reports sore throat Cardiovascular Cardiovascular: Reports system reviewed and no additional complaints, except as documented and Reports as per HPI Respiratory Respiratory: Reports system reviewed and no additional complaints, except as documented, Reports as per HPI, Denies shortness of breath and Reports cough Gastrointestinal Gastrointestingal: Reports system reviewed and no additional complaints, except as documented and as per HPI Neurologic Neurologic: Reports headache(s) Physical Exam General General appearance: alert and in no apparent distress ENT ENT exam: Present mucous membranes moist Expanded ENT Exam Nose exam: Absent sinus tenderness Throat exam: Present tonsillar erythema Respiratory Respiratory exam: Present normal lung sounds bilaterally; Absent respiratory distress or wheezes Cardiovascular Cardiovascular exam: Present regular rate, normal rhythm and normal heart sounds Neurological Exam Neurological exam: Present alert, oriented X3 and normal gait Medical Decision Making Billy Inquiry Pt receiving controlled substance: No Billy was queried for this patient: No Vital Signs: 09/12/23 11:00 Temperature 98.1 F Temperature Source Oral Pulse Rate [Left Brachial] 86 Respiratory Rate 23 Blood Pressure [Left Arm] 138/100 H Blood Pressure Mean [Left Arm] 112 Blood Pressure Source [Left Arm] Automatic Cuff Blood Pressure Position [Left Arm] Sitting 02 Sat by Pulse Oximetry 99 Oxygen Delivery Method Room Air Lab Data Lab results reviewed: Yes I reviewed the patient's lab results.
[2023-09-12 11:21] VITALS: BP 168/98
[2023-09-12 11:27] LABS: UTC Strep Screen (Rapid) Negative (Negative)
[2023-09-12 11:28] VITALS: BP 168/98; PULSE 86; RESP 23; TEMP 36.7; O2SAT 99
[2023-09-12 11:28] LABS: UTC Influenza A Antigen Negative (Negative)
[2023-09-12 11:29] LABS: UTC Influenza B Antigen Negative (Negative)
== END 2023-09-12 11:30 | disposition home or self-care (01) ==
PROVIDERS: Emergency Provider Nurse Practitioner; PCP Internal Medicine
DX: R05.9 Cough, unspecified (principal); R51.9 Headache, unspecified; R50.9 Fever, unspecified; R07.0 Pain in throat; R09.81 Nasal congestion; B34.9 Viral infection, unspecified
CPT/HCPCS: 87635; 87804; 87880; 99212; 99213; G0463

== ENCOUNTER 2023-09-15 19:29 | Outpatient (CLI) | payer MEDICARE, MEDICAID, SELFPAY ==
[2023-09-15 19:55] LABS: Free T4 (Free Thyroxine) 1.07 ng/dl (0.78-2.19)
[2023-09-15 20:10] LABS: Thyroid Stimulating Hormone 0.78 uIU/mL (0.465-4.68)
[2023-09-17 09:07] LABS: Thyroid Peroxidase Antibodies 14 IU/mL (0-34)
[2023-09-21 09:43] LABS: Triiodothyronine (T3) Reverse 18.7
== END 2023-09-15 23:59 ==
LOC: LAB.DROPOF 19:30
PROVIDERS: PCP Internal Medicine; Visit Provider Internal Medicine
DX: E11.22 Type 2 diabetes mellitus with diabetic chronic kidney disease (principal); N18.32 Chronic kidney disease, stage 3b; G47.00 Insomnia, unspecified; Z79.4 Long term (current) use of insulin; Z79.84 Long term (current) use of oral hypoglycemic drugs; Z79.85 Long-term (current) use of injectable non-insulin antidiabetic drugs
CPT/HCPCS: 84439; 84443; 84482; 86376

== ENCOUNTER 2023-09-16 16:18 | Outpatient (CLI) | payer MEDICARE, MEDICAID, SELFPAY | END 2023-09-16 23:59 | LOC: LAB.DROPOF 09-17 11:32 | PROVIDERS: PCP Nurse Practitioner; Visit Provider Nurse Practitioner | DX: M25.571 Pain in right ankle and joints of right foot (principal); L97.319 Non-pressure chronic ulcer of right ankle with unspecified severity; B95.2 Enterococcus as the cause of diseases classified elsewhere | CPT/HCPCS: 87070; 87205 ==

== ENCOUNTER 2023-10-08 11:49 | Outpatient (CLI) | payer MEDICARE, SELFPAY ==
[2023-10-08 12:24] LABS: Basophils % 0.2 % (0.1-2.0); Chloride 109 mmol/L (98-107); Eosinophils % 0.2 % (0.1-12.0); Hematocrit 39.8 % (37.0-47.0); Hemoglobin 12.7 g/dL (12.2-16.2); Lymphocytes # 0.9 K/mm3 (0.7-4.5); Lymphocytes % 34.1 % (10-50); Mean Corpuscular HGB Conc 31.8 g/dL (31.8-35.4); Mean Corpuscular Hemoglobin 33.3 pg (27.0-31.2); Mean Corpuscular Volume 104.9 fl (81-99); Mean Platelet Volume 9.8 fl (7.4-10.4); Monocytes # 0.2 K/mm3 (0.1-1.0); Monocytes % 7.3 % (1.7-9.3); Neutrophils # 1.5 K/mm3 (1.8-7.8); Neutrophils % 58.2 % (37.0-80.0); Platelet Count 76 K/mm3 (142-424); Potassium 5.2 mmoL/L (3.5-5.1); Red Cell Distribution Width 15.3 % (11.5-17.5); Sodium 142 mmol/L (136-145); White Blood Count 2.6 K/mm3 (4.8-10.8)
[2023-10-08 12:27] LABS: Alanine Aminotransferase 61 U/L (12-78); Albumin Level 3.5 g/dl (3.5-5.0); Albumin/Globulin Ratio 1.1 (1.1-1.8); Alkaline Phosphatase 168 U/L (38-126); Anion Gap 7.2 mEq/L (5-15); Aspartate Amino Transferase 74 U/L (14-36); Bilirubin,Total 0.8 mg/dl (0.2-1.3); Blood Urea Nitrogen 19 mg/dl (7-17); Calcium 8.9 mg/dl (8.4-10.2); Carbon Dioxide 31 mmol/L (22.0-30.0); Estimated Glomerular Filt Rate 42 ml/min (>60); GFR (African American) 50 ML/MIN (>60); Globulin 3.2 g/dL (1.3-3.2); Glucose 222 mg/dl (74-100); Total Protein,Serum 6.7 g/dl (6.3-8.2)
[2023-10-08 13:44] LABS: Hemoglobin A1C 7.5 % (4.0-6.0)
[2023-10-10 11:42] LABS: Peripheral Smear Review Scanned Result
== END 2023-10-08 23:59 ==
LOC: LAB.DROPOF 11:50
PROVIDERS: PCP Internal Medicine; Visit Provider Internal Medicine
DX: R79.89 Other specified abnormal findings of blood chemistry (principal); B15.9 Hepatitis A without hepatic coma; E11.9 Type 2 diabetes mellitus without complications
CPT/HCPCS: 80053; 83036; 85025

== ENCOUNTER 2023-10-08 13:38 | Outpatient (CLI) | payer MEDICARE, SELFPAY | END 2023-10-08 23:59 | LOC: RT 13:40 | PROVIDERS: PCP Internal Medicine; Visit Provider Nurse Practitioner | DX: R09.89 Other specified symptoms and signs involving the circulatory and respiratory systems (principal); R79.89 Other specified abnormal findings of blood chemistry; B15.9 Hepatitis A without hepatic coma; E11.9 Type 2 diabetes mellitus without complications; Z79.4 Long term (current) use of insulin; Z79.899 Other long term (current) drug therapy | CPT/HCPCS: 80053; 83036; 85025; 93923 ==

== ENCOUNTER 2023-10-21 15:00 | Outpatient (CLI) | payer MEDICARE, SELFPAY ==
[2023-10-21 15:07] LABS: Microscopic, Urine URINE MICROSCOPIC (MICROSCOPIC)
[2023-10-21 15:31] LABS: Hematocrit 36.3 % (37.0-47.0); Hemoglobin 11.4 g/dL (12.2-16.2); Mean Corpuscular HGB Conc 31.5 g/dL (31.8-35.4); Mean Corpuscular Hemoglobin 32.7 pg (27.0-31.2); Mean Corpuscular Volume 103.5 fl (81-99); Platelet Count 55 K/mm3 (142-424); Red Cell Distribution Width 14.7 % (11.5-17.5); White Blood Count 1.9 K/mm3 (4.8-10.8)
[2023-10-21 15:52] LABS: Appearance,Urine CLEAR (Clear); Bilirubin,Urine Negative (Negative); Blood, Urine Negative (Negative); Color,Urine YELLOW (Yellow); Glucose,Urine (UA) 3+ (Negative); Ketones,Urine Negative (Negative); Leukocyte Esterase,Urine Negative (Negative); Nitrate,Urine Negative (Negative); Protein,Urine Negative (Negative); Urobilinogen,Urine 0.2 EU/dl (0.2)
[2023-10-21 16:07] LABS: Chloride 111 mmol/L (98-107); Potassium 5.4 mmoL/L (3.5-5.1); Sodium 141 mmol/L (136-145)
[2023-10-21 16:08] LABS: Albumin Level 3.2 g/dl (3.5-5.0)
[2023-10-21 16:10] LABS: Anion Gap 6.4 mEq/L (5-15); Blood Urea Nitrogen 18 mg/dl (7-17); Carbon Dioxide 29 mmol/L (22.0-30.0); Estimated Glomerular Filt Rate 42 ml/min (>60); GFR (African American) 50 ML/MIN (>60); Phosphorous 3.8 mg/dl (2.5-4.5)
[2023-10-21 16:11] LABS: Calcium 8.9 mg/dl (8.4-10.2); Glucose 261 mg/dl (74-100)
[2023-10-21 16:16] LABS: WBC,Urine Occasional #/hpf (0-3)
[2023-10-21 16:42] LABS: Creatinine,Urine Random 87 mg/dL (Not Estab.)
[2023-10-21 16:46] LABS: Microalbumin/Creatinine Ratio 12.2
[2023-10-21 16:53] LABS: 25-OH Vitamin D, Total 19.7 ng/mL (30-100)
== END 2023-10-21 23:59 ==
LOC: LAB 15:02
PROVIDERS: PCP Internal Medicine; Visit Provider Internal Medicine Nephrology
DX: N18.2 Chronic kidney disease, stage 2 (mild) (principal); E55.9 Vitamin D deficiency, unspecified; R80.9 Proteinuria, unspecified; Z68.33 Body mass index [BMI] 33.0-33.9, adult
CPT/HCPCS: 36415; 80069; 81001; 82043; 82306; 82570; 83970; 84156; 85014; 85018; 85048; 85049

== ENCOUNTER 2023-10-30 11:00 | Outpatient (RCR) | payer MEDICARE, MEDICAID, SELFPAY ==
--- NOTE | 2023-09-18 11:46 | HMH.OTOPEV ---
OT Inpatient Evaluation Rehab OT Outpatient Eval Start: 09/18/23 11:37 Freq: Status: Active Protocol: Document 09/18/23 11:38 SYDNIE (Rec: 09/18/23 11:46 [id number] E-signed By Mark Morgan, OT Outpatient Therapy Subjective History Subjective History Pt is a 63 year old female who reports to therapy for initial evaluation to right shoulder. Pt has been experiencing pain and decreased motion at right shoulder for ~3 months. She does not recall a specific injury causing her pain to begin. Pt is right hand dominant. At this time she has not had a MRI completion. Upon observation, pt is limited with both AROM and strength at right shoulder. Pt will continue to be seen in order to address deficits. New diagnosis of cancer in past 12 No months? Chief Complaint Pain,Stiff,Weakness Symptom Type Ache,Throb,Sharp,Dull Symptoms Relieved By Rest/Positioning,OTC Meds, Prescription Meds Symptoms Aggravated By Physical Activity,Lifting Prior Functional Limitations None Current Functional Limitations Reaching,Lifting,Housework, Dressing,Driving,Sleeping, Recreation Activity Symptom Description Constant but Variable Level of pain today (0-10) 7 Pain scale - at its best (0-10) 5 Pain scale - at its worst (0-10) 10 Shoulder/Elbow Eval Shoulder Objective Measurements Shoulder ROM Right Shoulder Abduction Active Range of 80 degrees Motion (degrees) Shoulder Flexion Active Range of Motion 92 degrees (degrees) Query Text: Shoulder External Rotation Active Range 25 degrees of Motion (degrees) Shoulder Internal Rotation Active Range 30 degrees of Motion (degrees) Shoulder MMT Shoulder Abduction Strength Grade 3 Fair Shoulder Flexion Strength Grade 3 Fair Shoulder External Rotation Strength 3 Fair Grade Shoulder Internal Rotation Strength 3 Fair Grade Shoulder Strength Patient Testing Sitting Position Elbow Objective Measurements QuickDASH Activities Please rate your ability to do the following activities in the last week by selecting the number below the appropriate response. 1. Open a tight or new jar. Severe difficulty 2. Do heavy pegger (e.g., wash Severe difficulty miranda, floors). 3. Carry a shopping bag or briefcase. Severe difficulty 4. Wash your back. Unable 5. Use a knife to cut food. No difficulty 6. Recreational activities in which you Severe difficulty take some force or impact through your arm, shoulder, or hand (e.g., golf, hammering, tennis, etc.). 7. During the past week, to what extent Extremely has your arm, shoulder or hand problem interfered with your normal social activities with family, friends, neighbors or groups? 8. During the past week, were you Very limited limited in your work or other regular daily activites as a result of your arm, shoulder or hand problem? 9. Arm, shoulder or hand pain. Extreme 10. Tingling (pins and needles) in your Moderate arm, shoulder or hand. 11. During the past week, how much Severe difficulty difficulty have you had sleeping because of the pain in your arm, shoulder or hand? Quick DASH 43 OT Outpatient Assessment Impairments Problems/Impairments Palpation Tenderness,Impaired Range of Motion,Impaired Strength,Impaired Endurance, Impaired Lifting,Impaired Dressing,Impaired Shower/ Bathing,Impaired Household Care,Impaired Recreational Activities,Subjective C/O Pain Prognosis Rehab Potential Good Clinical Impression Consistent with Diagnosis Yes Short Term Goals Number of Weeks 3 Increase Range of Motion Yes: Flex: 120 Abd: 110 ER: 55 IR: 40 Increase Strength Yes: 3+4-/5 throughout right shoulder Increase Endurance Yes: Pt will tolerate R shoulder exercises for ~20 min prior to rest. 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 Decrease Subjective C/O Pain Yes: 3/10 at worst Patient to be Ind w/ Advanced HEP Yes: Advanced strengthening exercises Improve Quick Dash Score Yes: Activities 30 or below Outpatient Therapy Plan of Care Treatment Plan May Include Therapeutic Exercise Including Home Yes Exercise Program Manual Therapy Techniques Yes Neuromuscular Re-education Yes Therapeutic Activities to Return to Yes Previous Functional/Work Level ADL/Self Care Education Yes Dry Needling Yes Thermal Modalities Yes Electrical Stimulation Yes Ultrasound/Phonophoresis Yes Iontophoresis Yes Parrafin Yes Orthotics/Bracing/Splinting Yes Massage Yes Eval/Re-Eval Yes Frequency Times per week 2 Duration Number of Weeks 6 Addendums This patient is a candidate for social No or vocational rehab? Patient/Guardian verbally acknowledges Yes understanding of treatment program and consents to further treatment? Patient/Guardian verbally acknowledges Yes understanding of diagnosis, prognosis and goals for treatment? Eval Complexity OT Charge 87092 - Moderate Complexity PHYSICIAN CERTIFICATION: I certify the specified therapy services for Mary Swift Homer are required, authorized, and reviewed every 30 days.
--- NOTE | 2023-10-16 10:56 | HMH.RHREAS ---
Rehab Reassessment Rehab OP Re-assessment Start: 09/18/23 11:37 Freq: Status: Active Protocol: Document 10/16/23 10:01 SYDNIE (Rec: 10/16/23 10:56 SYDNIE [id number]) E-signed By Mark Morgan OT Rehab Re-assessment Subjective Subjective I am in bad pain today. Objective Objective Notes Pt continues to be seen weekly in order to address right shoulder deficitis. Pt engages in R shoulder AROM, AAROM, and strengthening exercises. PROM manual therapy is also provided to right shoulder in all planes; flexion, abduction, ER, and IR . Modalities are provided in order to decrease pain/ inflammation. Assessment Progress Assessment Slower Than Expected Assessment Notes Pt very inconsistent about attending scheduled therapy sessions. Pt has attended on appointment since initial evaluation. At this time she has made minimal progress. Pt returns to ortho in two weeks . Pt rates her pain at a 8/10 today at therapy session. She also reports continued pain at a 10/10 at times. Current AROM R shoulder: Flex: 115 degrees Abd: 115 degrees ER: 70 degrees IR: [address], 3, and 5 Goals Not Met See below Revised Goals ST, 4, and 6 LT-6 Plan Plan Continue with OT plan of care at this time. Frequency of Therapy 2x's a week Duration of therapy 4 more weeks Time and Billing Re-Eval Time 11 Re-Eval Billing Units 1 PHYSICIAN CERTIFICATION: I certify the specified therapy services for Mary Coronel are required, authorized, and reviewed every 30 days.
== END 2023-10-30 12:00 | disposition home or self-care (01) ==
LOC: OT 11:00
PROVIDERS: PCP Internal Medicine; Visit Provider Orthopaedic Surgery
DX: M25.511 Pain in right shoulder (principal)
CPT/HCPCS: 97010; 97014; 97110; 97140; 97164; 97166; G0283

== ENCOUNTER 2023-10-30 15:05 | Outpatient (CLI) | payer MEDICARE, MEDICAID, SELFPAY ==
[2023-10-30 15:27] LABS: Eosinophils % 0.2 % (0.1-12.0); Hematocrit 39.3 % (37.0-47.0); Hemoglobin 12.1 g/dL (12.2-16.2); Lymphocytes # 0.9 K/mm3 (0.7-4.5); Mean Corpuscular HGB Conc 30.8 g/dL (31.8-35.4); Mean Corpuscular Hemoglobin 31.6 pg (27.0-31.2); Mean Corpuscular Volume 102.6 fl (81-99); Mean Platelet Volume 9.3 fl (7.4-10.4); Monocytes # 0.2 K/mm3 (0.1-1.0); Monocytes % 5.7 % (1.7-9.3); Neutrophils # 1.6 K/mm3 (1.8-7.8); Neutrophils % 58.2 % (37.0-80.0); Platelet Count 72 K/mm3 (142-424); Red Blood Count 3.83 M/mm3 (4.20-5.40); Red Cell Distribution Width 15.1 % (11.5-17.5); White Blood Count 2.7 K/mm3 (4.8-10.8)
== END 2023-10-30 23:59 ==
LOC: LAB 15:06
PROVIDERS: PCP Internal Medicine; Visit Provider Internal Medicine Medical Oncology
DX: D69.6 Thrombocytopenia, unspecified (principal); D72.818 Other decreased white blood cell count
CPT/HCPCS: 36415; 85025

== ENCOUNTER 2023-11-03 22:45 | Outpatient (CLI) | payer MEDICARE, MEDICAID, SELFPAY | END 2023-11-03 23:59 | LOC: LAB.DROPOF 22:45 | PROVIDERS: PCP Internal Medicine; Visit Provider Internal Medicine | DX: L02.31 Cutaneous abscess of buttock (principal); B96.89 Other specified bacterial agents as the cause of diseases classified elsewhere | CPT/HCPCS: 87070; 87205 ==

== ENCOUNTER 2023-11-04 07:34 | Day surgery (SDC) | payer MEDICARE, MEDICAID, SELFPAY ==
[2023-10-31 09:56] VITALS: BMI 32.5
[2023-11-04] VITALS (7 sets, daily range): BP systolic 140–175; BP diastolic 52–91; PULSE 78–83; RESP 16–18; TEMP 36.2–36.8; O2SAT 88–96
[2023-11-04] MEDS: PHENYLEPHRINE 2.5% OPHTH SOLN 2ML 0.0500000000000000028 ML OP ×3 (08:05→08:15)
[2023-11-04] MEDS: CYCLOPENTOLATE 2% OPHTH SOLN 2ML BOTTLE OP ×3 (08:05→08:15)
[2023-11-04] MEDS: TETRACAINE 0.5% OPTH SOL 15ML OP ×3 (08:05→08:15)
[2023-11-04] MEDS: LACTATED RINGERS 1000ML 1,000 ML 25 ML IV (08:14)
[2023-11-04] MEDS: MIDAZOLAM 2MG/2ML VIAL 1 MG IV (09:15)
[2023-11-04] MEDS: LIDOCAINE 1% PF 2ML AMPULE 2 ML IJ (09:33)
[2023-11-04] MEDS: TIMOLOL 0.5% OPTH SOLN 5ML OP (09:33)
[2023-11-04] MEDS: TRI-MOXI 15MG/1MG/ML 1ML OPHTH VIAL 1 ML OP (09:33)
--- NOTE | 2023-11-04 09:38 | P.PCN_ITS ---
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 The patient reports that this interferes with ADLs such as reading, watching TV and/or driving or the vision is like looking through a foggy haze and is very troubling. The patient was examined and found to have a visually significant cataract with best corrected vision of 20/400 by refraction and/or glare testing. Treatment options, risks and benefits were explained and the patient elected to have cataract surgery in an attempt to improve their vision. The patient had the eye anesthetized with topical tetracaine, the eye ways prepped and draped in the usual fashion for cataract surgery. A paracentesis and a temporal keratotomy were made. 0.2cc of 1% lidocaine PF was placed into the anterior chamber. And aqueous/viscoelastic exchange was done and a 360 degree capsulorexis was performed. Through hydrodissection and delineation with BSS on a cannula was done. The lens nucleus was phecoemulsified with CDE of 8.34. Residual cortical material was removed using automated I&A The capsular bag was deepened with viscoelastica and a PCIOL was placed in the capsular bag with good centration and stability. Residual viscoelastic was removed using automated I&A. The keratotomy incision was hydrated with BSS on a cannula. The wound were checked and found to be water tight. IOP was checked digitally and adjusted as needed so as not to be too high. 1 drop of timolol 0.5%, ofloxacin, prednisolone acetate and ketorolac was instilled and eye shield taped over the eye. The pat ient was taken to recovery in good condition and will be seen postoperatively.
--- NOTE | 2023-11-04 10:07 | HMH.PROCNOTE ---
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 The patient reports that this interferes with ADLs such as reading, watching TV and/or driving or the vision is like looking through a foggy haze and is very troubling. The patient was examined and found to have a visually significant cataract with best corrected vision of 20/400 by refraction and/or glare testing. Treatment options, risks and benefits were explained and the patient elected to have cataract surgery in an attempt to improve their vision. The patient had the eye anesthetized with topical tetracaine, the eye ways prepped and draped in the usual fashion for cataract surgery. A paracentesis and a temporal keratotomy were made. 0.2cc of 1% lidocaine PF was placed into the anterior chamber. And aqueous/viscoelastic exchange was done and a 360 degree capsulorexis was performed. Through hydrodissection and delineation with BSS on a cannula was done. The lens nucleus was phecoemulsified with CDE of 6.87. Residual cortical material was removed using automated I&A The capsular bag was deepened with viscoelastica and a PCIOL was placed in the capsular bag with good centration and stability. Residual viscoelastic was removed using automated I&A. The keratotomy incision was hydrated with BSS on a cannula. The wound were checked and found to be water tight. IOP was checked digitally and adjusted as needed so as not to be too high. 1 drop of timolol 0.5%, ofloxacin, prednisolone acetate and ketorolac was instilled and eye shield taped over the eye. The patient was taken to recovery in good condition and will be seen postoperatively.
[2023-11-05 12:02] LABS: POC Glucose,Bedside 172 (70-110)
== END 2023-11-04 08:55 | disposition home or self-care (01) ==
PROVIDERS: PCP Internal Medicine; Visit Provider Ophthalmology
DX: H53.149 Visual discomfort, unspecified (principal); H53.8 Other visual disturbances; H25.092 Other age-related incipient cataract, left eye; E11.36 Type 2 diabetes mellitus with diabetic cataract
CPT/HCPCS: 66982; 82962; V2632

== ENCOUNTER 2023-11-14 14:12 | Outpatient (CLI) | payer MEDICARE, MEDICAID, SELFPAY ==
--- NOTE | 2023-11-14 14:14 | CA_ITS ---
FINAL REPORT CLINICAL HISTORY: PVD,CLAUDICATIONHTN,HLD,DM,NEUROPATHY COMPARISON: None FINDINGS: BILATERAL LOWER EXTREMITY DUPLEX DOPPLER Color Doppler and duplex Doppler of the bilateral lower extremity was performed. Spectral analysis was also performed. Velocities were measured at multiple levels. All velocities are in centimeters per second. RIGHT SCHOOL BUS DRIVER/TEACHER ASSISTANT: 92 Prof A: 52 SFA Prox: 118 SFA Mid: 110 SFA Distal: 101 FIELD SUPPORT ENGINEER Prox: 112 FIELD SUPPORT ENGINEER Mid: 117 FIELD SUPPORT ENGINEER Dist: 73 DELFINA Dist: 83 Per A Mid: 77 Waveforms are biphasic. LEFT SCHOOL BUS DRIVER/TEACHER ASSISTANT: 101 Prof A: 67 SFA Prox: 107 SFA Mid: 97 SFA Distal: 112 FIELD SUPPORT ENGINEER Prox: 95 FIELD SUPPORT ENGINEER Mid: 119 FIELD SUPPORT ENGINEER Dist: 112 DELFINA Dist: 58 Per A Mid: 79 Waveforms are biphasic. IMPRESSION: Waveforms are noted to be biphasic throughout. No levels of stenosis or occlusion are identified. Reviewed, Interpreted and Dictated by Dre Keenan MD Transcribed by Shara Sanchez Authenticated and [facility]
== END 2023-11-14 23:59 | disposition home or self-care (01) ==
LOC: RT 14:12
PROVIDERS: PCP Internal Medicine; Visit Provider Internal Medicine
DX: I73.9 Peripheral vascular disease, unspecified (principal)
CPT/HCPCS: 93925

== ENCOUNTER 2023-11-18 07:26 | Day surgery (SDC) | payer MEDICARE, MEDICAID, SELFPAY ==
[2023-11-14 12:51] VITALS: BMI 32.4
[2023-11-18] MEDS: TETRACAINE 0.5% OPTH SOL 15ML OP ×3 (07:50→07:59)
[2023-11-18] MEDS: PHENYLEPHRINE 2.5% OPHTH SOLN 2ML 0.0500000000000000028 ML OP ×3 (07:50→08:00)
[2023-11-18] MEDS: CYCLOPENTOLATE 2% OPHTH SOLN 2ML BOTTLE OP ×3 (07:50→08:00)
[2023-11-18 07:53] VITALS: BP 201/99; PULSE 83; RESP 18; TEMP 36.3; O2SAT 95
[2023-11-18] MEDS: LACTATED RINGERS 1000ML 1,000 ML 25 ML IV (08:00)
--- NOTE | 2023-11-18 08:09 | SUR.PREOP ---
D5LR AND APPLE JUICE ORDERED PER dR. ARMENTA FOR FSBS OF 79.
[2023-11-18 08:13] LABS: POC Glucose,Bedside 79 (70-110)
[2023-11-18] MEDS: DEXTROSE 5%-LACTATED RINGERS 1,000 ML 25 ML IV (08:19)
--- NOTE | 2023-11-18 09:08 | SUR.PREOP ---
FSBS RECHECK 137
[2023-11-18 09:12] LABS: POC Glucose,Bedside 137 (70-110)
[2023-11-18 09:15] VITALS: BP 176/84; PULSE 92; RESP 16; O2SAT 94
[2023-11-18] MEDS: MIDAZOLAM 2MG/2ML VIAL 2 MG (09:15)
[2023-11-18 09:20] VITALS: BP 167/79; PULSE 92; RESP 16; O2SAT 93
[2023-11-18] MEDS: TIMOLOL 0.5% OPTH SOLN 5ML OP (09:21)
[2023-11-18] MEDS: LIDOCAINE 1% PF 2ML AMPULE 2 ML IJ (09:21)
[2023-11-18] MEDS: TRI-MOXI 15MG/1MG/ML 1ML OPHTH VIAL 1 ML OP (09:22)
[2023-11-18 09:25] VITALS: BP 167/76; PULSE 91; RESP 16; O2SAT 92
[2023-11-18 09:30] VITALS: BP 168/77; PULSE 91; RESP 16; O2SAT 94
[2023-11-18 09:33] VITALS: BP 161/86; PULSE 94; RESP 16; TEMP 36.6; O2SAT 97
--- NOTE | 2023-11-18 11:21 | P.PCN_ITS ---
[facility] Procedure Note Date: 11/18/23 Time: 11:21 Procedure Note:: Preoperative Diagnosis: Cataract combined NS Cortical Complex [Right] Eye Postop diagnosis: same Operation: Microscopic phacoemulsification with intraocular lens implant [Right] Eye Specimen: None Blood Loss: None The patient was examined in the office with a complaint of poor vision in the [right] eye. The patient reports that this interferes with ADLs such as reading, watching TV and/or driving or the vision is like looking through a foggy haze and is very troubling. The patient was examined and found to have a visually significant cataract with best corrected vision of [20/400] by refraction and/or glare testing. Treatment options, risks and benefits were explained and the patient elected to have cataract surgery in an attempt to improve their vision. The patient had the eye anesthetized with topical tetracaine, the eye ways prepped and draped in the usual fashion for cataract surgery. A paracentesis and a temporal keratotomy were made. 0.2cc of 1% lidocaine PF was placed into the anterior chamber. And aqueous/viscoelastic exchange was done and a 360 degree capsulorexis was performed. Through hydrodissection and delineation with BSS on a cannula was done. The lens nucleus was phecoemulsified with CDE of [6.77]. Residual cortical material was removed using automated I&A The capsular bag was deepened with viscoelastica and a PCIOL was placed in the capsular bag with good centration and stability. Residual viscoelastic was removed using automated I&A. The keratotomy incision was hydrated with BSS on a cannula. The wound were checked and found to be water tight. IOP was checked digitally and adjusted as needed so as not to be too high. 1 drop of timolol 0.5%, ofloxacin, prednisolone acetate and ketorolac was instilled and eye shield taped over the eye. The patient was taken to recovery in good condition and will be seen postoperatively.
== END 2023-11-18 09:43 | disposition home or self-care (01) ==
PROVIDERS: PCP Internal Medicine; Visit Provider Ophthalmology
PROC: (CPT 66984; principal; 2023-11-18 09:00)
DX: H25.811 Combined forms of age-related cataract, right eye (principal); E11.9 Type 2 diabetes mellitus without complications; Z79.4 Long term (current) use of insulin; Z79.899 Other long term (current) drug therapy; I10 Essential (primary) hypertension
CPT/HCPCS: 66984; 82962; V2632

== ENCOUNTER 2023-12-03 11:08 | Outpatient (CLI) | payer MEDICARE, MEDICAID, SELFPAY ==
[2023-12-03 19:28] LABS: Basophils % 0.4 % (0.1-2.0); Eosinophils % 0.2 % (0.1-12.0); Hematocrit 39.6 % (37.0-47.0); Hemoglobin 12.2 g/dL (12.2-16.2); Lymphocytes % 34.8 % (10-50); Mean Corpuscular HGB Conc 30.9 g/dL (31.8-35.4); Mean Corpuscular Hemoglobin 31.5 pg (27.0-31.2); Mean Corpuscular Volume 101.8 fl (81-99); Mean Platelet Volume 10.9 fl (7.4-10.4); Monocytes # 0.2 K/mm3 (0.1-1.0); Monocytes % 7.7 % (1.7-9.3); Neutrophils # 1.5 K/mm3 (1.8-7.8); Neutrophils % 56.9 % (37.0-80.0); Platelet Count 72 K/mm3 (142-424); Red Blood Count 3.89 M/mm3 (4.20-5.40); Red Cell Distribution Width 15.6 % (11.5-17.5); White Blood Count 2.7 K/mm3 (4.8-10.8)
[2023-12-03 20:06] LABS: Chloride 109 mmol/L (98-107); Potassium 4.8 mmoL/L (3.5-5.1); Sodium 142 mmol/L (136-145)
[2023-12-03 20:08] LABS: Blood Urea Nitrogen 15 mg/dl (7-17); Estimated Glomerular Filt Rate 56 ml/min (>60); GFR (African American) 68 ML/MIN (>60)
[2023-12-03 20:09] LABS: Alanine Aminotransferase 47 U/L (12-78); Albumin Level 3.3 g/dl (3.5-5.0); Alkaline Phosphatase 200 U/L (38-126); Anion Gap 8.8 mEq/L (5-15); Aspartate Amino Transferase 74 U/L (14-36); Bilirubin,Total 1.1 mg/dl (0.2-1.3); Calcium 8.9 mg/dl (8.4-10.2); Carbon Dioxide 29 mmol/L (22.0-30.0); Globulin 3.3 g/dL (1.3-3.2); Glucose 100 mg/dl (74-100); Total Protein,Serum 6.6 g/dl (6.3-8.2)
[2023-12-03 20:42] LABS: Hemoglobin A1C 7.4 % (4.0-6.0)
== END 2023-12-03 23:59 | disposition home or self-care (01) ==
PROVIDERS: PCP Internal Medicine; Visit Provider Internal Medicine
DX: R53.83 Other fatigue (principal); R73.09 Other abnormal glucose
CPT/HCPCS: 80053; 83036; 85025

== ENCOUNTER 2023-12-17 14:35 | Outpatient (CLI) | payer MEDICARE, MEDICAID, SELFPAY ==
--- NOTE | 2023-12-17 14:44 | ECG_ITS ---
APPROVED REPORT Exam: Resting ECG HR:106 bpm ECG Measurements Heart Rate 106 AXES WA 135 P 45 QRSd 98 QRS 13 QT 349 T -40 QTc 411 Conclusion SINUS TACHYCARDIA LOW QRS VOLTAGE IN PRECORDIAL LEADS [QRS DEFLECTION < 1.0 mV IN CHEST LEADS] LEFT VENTRICULAR HYPERTROPHY AND ST-T CHANGE Old anteroseptal change ABNORMAL ECG UNCONFIRMED REPORT Electronically signed by : Jaylen Escudero MD 12/20/2023 08:31:58
== END 2023-12-17 23:59 | disposition home or self-care (01) ==
LOC: RT 14:36
PROVIDERS: PCP Internal Medicine; Visit Provider Surgery
DX: R94.31 Abnormal electrocardiogram [ECG] [EKG] (principal); I42.2 Other hypertrophic cardiomyopathy
CPT/HCPCS: 93005

== ENCOUNTER 2023-12-25 05:33 | Day surgery (SDC) | payer MEDICARE, MEDICAID, SELFPAY ==
[2023-12-24 08:26] VITALS: BMI 33.0
[2023-12-24 09:06] VITALS: BP 149/84; PULSE 87; RESP 19; TEMP 36.4; O2SAT 95
[2023-12-24 09:16] VITALS: BP 140/92; PULSE 86; RESP 18; O2SAT 97
[2023-12-25] VITALS (9 sets, daily range): BP systolic 136–162; BP diastolic 67–84; PULSE 78–88; RESP 16–19; TEMP 36.4–43; O2SAT 93–100; BMI 33.0
[2023-12-25 07:06] LABS: POC Glucose,Bedside 134 (70-110)
--- NOTE | 2023-12-25 07:47 | EXP.ANES.CKL ---
[facility] Disclaimer: The information contained in this section may have been updated after the patient was seen, as this information can be updated by other users. Medical History Pulmonary regurgitation Foot pain, left Pulmonary vascular congestion Diastolic dysfunction Insomnia Generalized anxiety disorder Patient is taking the Trintellix being prescribed by Rea Garcia. Major depressive disorder Diabetes mellitus, type 2 Depression Anxiety Greater trochanteric bursitis of right hip Sacroiliitis Spinal stenosis Degenerative disc disease, lumbar Neck pain Back pain with right-sided sciatica Patient has multiple reasons to have neuropathic pain in the lower extremities. But she also has back pain as well. We will check x-rays of the LS spine. She will send her to see Dr. Bernardo for potential procedures and other therapies that he may deem beneficial. CTS (carpal tunnel syndrome) Neuroforaminal stenosis of lumbar spine Splenomegaly Thrombocytopenia Hypertensive urgency Abnormal CT scan, pelvis anal/rectal thickening Gallbladder hydrops Acute calculous cholecystitis Symptomatic cholelithiasis Uncontrolled type 2 diabetes mellitus E coli bacteremia Obesity (BMI 30.0-34.9) GERMÁN (acute kidney injury) Gastroenteritis Septic shock Severe sepsis Diabetic retinopathy Dizziness Anxiety with depression Sinus tachycardia Hypertension Obesity (BMI 30-39.9) RAD (reactive airway disease) Illness Lumbar canal stenosis Foraminal stenosis of lumbar region Ligamentum flavum hypertrophy Facet hypertrophy of lumbar region Bulging lumbar disc Dehydration Renal insufficiency HLD (hyperlipidemia) We did start atorvastatin 10 mg/day. Would like to do a fasting lipid panel on this patient. Will get this in the next week or so. HHD (hypertensive heart disease) CAD (coronary artery disease) Surgical History History of cardiac catheterization History of cholecystectomy History of coronary artery stent placement Family History Other Cancer Family history of diabetes mellitus type II Family history of hypertension Social History (Updated 12/25/23 @ 06:53 by Valentina Gandhi RN) Smoking Status: Never smoker second hand exposure: No alcohol intake: never substance use type: denies use current occupational status: disabled and other Travel in the last 8 weeks: None household members: none housing: house lives independently: Yes marital status: single number of children: 0 education level: high school current occupation: [employer] current occupational exposures/hazards: No caffeine: Yes [facility] Anesthesia Checklist Patient Identification Patient Identification: Arm Band Structural Data Admitted From: Home Planned Operative Procedure/s: Excision of Right Leg Mass Consent for Planned Operative Procedure(s) Verified: Yes Verified Documents: Surgical Consent and History and Physical NPO Status Verified Time NPO: 00:00 Additional verifications Anesthesia Reactions: No Hx Blood Transfusions: No Blood Transfusion Reaction: No Airway Assessment Mallampati Score:: Class II C-Spine Mobility Assessed: Yes Dentition: Poor Dentition Neurological Assessment Level of Consciousness: Awake, Alert and Appropriate Anesthesia Plan Anesthesia Risk discussed: Yes Anesthesia Plan: Verified ASA Class: III Anesthesia Type: General
[2023-12-25] MEDS: BACITRACIN ZINC OINT 30GM TUBE 28 GM TP (08:08)
[2023-12-25] MEDS: LIDOCAINE 1% 20ML MDV 20 ML (08:11)
[2023-12-25] MEDS: CEFAZOLIN SODIUM 2 GM in 0.9 % SODIUM CHLORIDE 100 ML IV (08:11)
--- NOTE | 2023-12-25 08:39 | EXP.ANES.I ---
[facility] Anesthesia Record Part I Anesthesia Record I Intake, IV Amount: 600 Hydration: Adequate Estimated blood loss (mL): 5 Urine output (mL): 0 Blood Products used (#): none Blood Pressure: 153/79 SaO2: 95 Pulse Rate: 83 Airway Patency: Patent Respiratory Rate: 16 Temperature: 99 F Patient is:: Drowsy and Stable Stable to PACU at:: 08:35
--- NOTE | 2023-12-25 08:42 | P.OP_ITS ---
Date of procedure: 12/25/23 Pre-op Diagnosis:: Right lateral/posterior thigh mass (3 cm) Post-op Diagnosis:: Same Procedure performed:: Excision of 3 cm right lower extremity mass Surgeon:: Min Quiñonez MD SEAFOOD MANAGER:: Vicente Davis Anesthesia: LMA Estimated blood loss (mL): 15 Operative findings:: Lesion excised in toto Operative note:: After informed consent was obtained the patient was taken to the operating room and placed in the supine position. General anesthesia with laryngeal mask airway was achieved. She was transferred to a left lateral decubitus position. Her right posterior/lateral thigh region was prepped and draped in a sterile fashion. After infiltration with local anesthetic an elliptical incision was made around the lesion. The deep subcutaneous tissue was dissected with electrocautery. The transection was taken through the superficial fascial margin to approach the musculature; however, the musculature was not involved. The lesion was excised in toto and passed off for pathologic evaluation. Electrocautery was utilized to achieve hemostasis. The superficial fascial margin was reapproximated with running Vicryl suture. Skin was then closed with 4-0 nylon in an interrupted mattress fashion. Dressings were applied and the patient was transferred to recovery in stable condition. Condition: stable Disposition: PACU Specimens:: Right lower extremity mass Complications:: No immediate
[2023-12-25 08:46] LABS: POC Glucose,Bedside 118 (70-110)
--- NOTE | 2023-12-25 11:13 | P.PNANES_ITS ---
[facility] Anesthesia Record Part II Anesthesia Record Part II Discharge Time: 08:55 Destination: Surgical Day Care (OP Surgery) PACU nurse assessment reviewed?: Yes Patient Condition:: Good Anesthesia Complications:: None Swallowing reflex intact?: Yes Airway Patency: Patent Cyanosis?: No Blood Pressure: 162/84 SaO2: 94 Respiratory Rate: 19 Pulse Rate: 87 Temperature: 99 F Mental Status: Alert & Oriented Pain level:: 0 Nausea and/or vomitting:: None Intake, IV Amount: 0 Hydration: Adequate
== END 2023-12-25 10:00 | disposition home or self-care (01) ==
PROVIDERS: PCP Internal Medicine; Visit Provider Surgery
PROC: (CPT 11403; principal; 2023-12-25 07:30)
DX: L72.0 Epidermal cyst (principal); E11.9 Type 2 diabetes mellitus without complications
CPT/HCPCS: 11403; 12032; 82962; 96374; J0690; J2405

== ENCOUNTER 2023-12-30 13:35 | Outpatient (POV) | payer MEDICARE, MEDICAID, SELFPAY | END 2023-12-30 23:59 | disposition home or self-care (01) | LOC: SC 13:35 | PROVIDERS: PCP Internal Medicine; Visit Provider Dermatology | DX: Z00.00 Encounter for general adult medical examination without abnormal findings (principal) ==

== ENCOUNTER 2024-02-10 15:27 | Outpatient (POV) | payer MEDICARE, MEDICAID, SELFPAY | END 2024-02-10 23:59 | disposition home or self-care (01) | LOC: SC 15:28 | PROVIDERS: PCP Internal Medicine; Visit Provider Dermatology | DX: Z00.00 Encounter for general adult medical examination without abnormal findings (principal) ==

== ENCOUNTER 2024-02-24 17:13 | Emergency (ER) | payer MEDICARE, MEDICAID, SELFPAY ==
[2024-02-24 17:30] VITALS: BP 165/82; PULSE 84; RESP 20; TEMP 36.8; O2SAT 95; BMI 32.3
--- NOTE | 2024-02-24 18:05 | ED_ITS ---
Discharge Plan Disposition Patient Disposition: Home, Self-Care Condition: Good Prescriptions Prescriptions: New Biofreeze (menthol) 4 % gel 1 applic topical TID PRN (Reason: pain) Qty: 89 0RF Rx Instructions: apply to right shoulder area as prescribed No Action insulin aspart U-100 [Novolog U-100 Insulin aspart] 100 unit/mL solution 5 unit SQ ACHS (DME) Omnipod 5 G6 Pods (Gen 5) Cartridge See Rx Instructions .ROUTE .MEDSUPPLY Qty: 5 Rx Instructions: As directed gabapentin 800 mg tablet See Rx Instructions .ROUTE .COMPLEX Qty: 90 0RF Dose Instruction: TAKE ONE TABLET BY MOUTH 3 TIMES A DAY FOR PAIN Rx Instructions: TAKE ONE TABLET BY MOUTH 3 TIMES A DAY FOR PAIN Xifaxan 550 mg tablet 550 mg PO DAILY (DME) lancets [OneTouch Delica Plus Lancet] 30 gauge misc See Rx Instructions .ROUTE .MEDSUPPLY Qty: 100 Rx Instructions: As directed Ozempic 1 mg/dose (4 mg/3 mL) pen injector See Rx Instructions .ROUTE .COMPLEX Rx Instructions: Doctor's Order metformin 1,000 mg tablet 1,000 mg PO BID Qty: 60 2RF cholecalciferol (vitamin D3) 125 mcg (5,000 unit) capsule 125 mcg PO DAILY dapagliflozin propanediol [Farxiga] 10 mg tablet 10 mg PO DAILY Qty: 30 2RF hydrocodone-acetaminophen 10-325 mg tablet 1 tab PO QID Qty: 120 0RF (DME) pen needle, diabetic [BD Ultra-Fine Mini Pen Needle] 31 gauge x 3/16 needle See Rx Instructions .Route Qty: 100 1RF Rx Instructions: As directed bisoprolol fumarate 10 mg tablet 10 mg PO BID Qty: 180 3RF lisinopril 10 mg tablet 10 mg PO DAILY Qty: 90 3RF (DME) OneTouch Ultra Test Strip See Rx Instructions .ROUTE .MEDSUPPLY Qty: 100 3RF Rx Instructions: As directed or bid (DME) lancets [OneTouch Delica Plus Lancet] 33 gauge misc See Rx Instructions .ROUTE .COMPLEX Qty: 100 0RF Dose Instruction: USE DIRECTED TO TEST BLOOD SUGAR Rx Instructions: USE DIRECTED TO TEST BLOOD SUGAR hydroxyzine pamoate 50 mg capsule 50 mg PO HSP PRN (Reason: sleep) 90 Days Qty: 90 0RF aspirin 81 mg tablet,delayed release (DR/EC) See Rx Instructions .ROUTE .COMPLEX Qty: 30 11RF Dose Instruction: TAKE ONE TABLET BY MOUTH AT BEDTIME FOR HEART DISEASE Rx Instructions: TAKE ONE TABLET BY MOUTH AT BEDTIME FOR HEART DISEASE furosemide 40 mg tablet See Rx Instructions .ROUTE .COMPLEX Qty: 180 1RF Dose Instruction: TAKE ONE TABLET BY MOUTH 2 TIMES A DAY NEEDED FOR EDEMA Rx Instructions: TAKE ONE TABLET BY MOUTH 2 TIMES A DAY NEEDED FOR EDEMA Trintellix 20 mg tablet See Rx Instructions .ROUTE .COMPLEX Qty: 30 0RF Dose Instruction: TAKE ONE TABLET BY MOUTH ONCE A DAY FOR MOOD Rx Instructions: TAKE ONE TABLET BY MOUTH ONCE A DAY FOR MOOD atorvastatin [Lipitor] 20 mg tablet See Rx Instructions .ROUTE .COMPLEX Rx Instructions: TAKE ONE TABLET BY MOUTH AT BEDTIME clopidogrel [Plavix] 75 mg tablet See Rx Instructions .ROUTE .COMPLEX Rx Instructions: TAKE ONE TABLET BY MOUTH 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 Instructions Additional Instructions/Restrictions: Follow up with Orthopedics Use topical Biofreeze as directed Take prescribed pain medications as prescribe Return if needed Straight to ER if any life threatening symptoms Clinical Impressions Clinical Impression: Chronic pain in right shoulder Instructions Patient Instructions: DI for Chronic Pain -- Adult Print Language Print Language: Urugu[place] Discharge ED Provider: Karlie Maxwell [facility] General Stated complaint: Pain right shoulder,knot on right arm Mode of Arrival: Ambulatory Source of Information: Patient Limitations: No Limitations Time Seen by Provider: 02/24/24 18:06 Description of Symptoms (Recalled from Triage Doc. by RN): PATIENT C/O PAIN IN RIGHT SHOULDER AND KNOT TO RIGHT ARM X 3 DAYS HEENT Symptoms (Recalled from RN notes): No Resp Symptoms (Recalled from RN notes): No Skin Symptoms (Recalled from RN notes): No MS Symptoms (Recalled from RN notes): Yes Functional Status (Recalled from RN notes): WNL History of Present Illness Provider Complaint: Patient states that she has a hx of pain in her right shoulder and arm States that he use to see Dr Sequeira for it but hasnt been to see him in months States for the last 3 days it has been bothering her on and off and this morning when she woke up she noticed a knot in the muscle area of her right upper arm so this evening she came in to get it checked but noticed the knot is now gone Related Data Home Medications ?Medication ?Instructions ?Recorded ?Confirmed insulin aspart U-100 100 unit/mL 5 unit SQ ACHS 05/16/23 02/10/24 subcutaneous solution (Novolog U-100 Insulin aspart) insulin pump cart,automated,BT #5 ea 05/16/23 02/10/24 (Omnipod 5 G6 Pods (Gen 5) subcutaneous cartridge) rifaximin 550 mg tablet (Xifaxan) 550 mg PO DAILY 05/27/23 02/10/24 lancets 30 gauge (OneTouch Delica #100 ea 10/07/23 02/10/24 Plus Lancet) semaglutide 1 mg/dose (4 mg/3 mL) See Rx Instructions .Route .COMPLEX 12/03/23 02/10/24 subcutaneous pen injector (Ozempic) atorvastatin 20 mg tablet (Lipitor) See Rx Instructions .Route .COMPLEX 12/18/23 02/10/24 clopidogrel 75 mg tablet (Plavix) See Rx Instructions .Route .COMPLEX 12/18/23 02/10/24 cholecalciferol (vitamin D3) 125 125 mcg PO DAILY 02/10/24 02/10/24 mcg (5,000 unit) capsule Previous Rx's ?Medication ?Instructions ?Recorded pen needle, diabetic 31 gauge x #100 ea 03/28/2310/10 (BD Ultra-Fine Mini Pen Needle) bisoprolol fumarate 10 mg tablet 10 mg PO BID High blood pressure 04/18/23 #180 tabs lisinopril 10 mg tablet 10 mg PO DAILY High blood pressure 05/21/23 #90 tabs blood sugar diagnostic (OneTouch #100 ea 09/19/23 Ultra Test strips) lancets 33 gauge (OneTouch Delica #100 ea 09/19/23 Plus Lancet) hydroxyzine pamoate 50 mg capsule 50 mg PO HSP PRN sleep 90 days #90 10/20/23 caps aspirin 81 mg tablet,delayed See Rx Instructions .Route 11/19/23 release .COMPLEX #30 tabs metformin 1,000 mg tablet 1,000 mg PO BID #60 tabs 12/17/23 furosemide 40 mg tablet See Rx Instructions .Route 01/12/24 .COMPLEX #180 tabs gabapentin 800 mg tablet See Rx Instructions .Route 01/14/24 .COMPLEX #90 tabs dapagliflozin propanediol 10 mg 10 mg PO DAILY #30 tabs 02/10/24 tablet (Farxiga) hydrocodone 10 mg-acetaminophen 1 tab PO QID Pain #120 tabs 02/10/24 325 mg tablet vortioxetine 20 mg tablet See Rx Instructions .Route 02/11/24 (Trintellix) .COMPLEX #30 tabs menthol 4 % topical gel (Biofreeze 1 applic topical TID PRN pain #89 02/24/24 (menthol)) mL Allergies Allergy/AdvReac Type Severity Reaction Status Date / Time No Known Allergies Allergy Verified 02/10/24 13:22 Worker's Comp Is this a Worker's Comp case?: No [facility] Disclaimer: The information contained in this section may have been updated after the patient was seen, as this information can be updated by other users. Medical History Pulmonary regurgitation Foot pain, left Pulmonary vascular congestion Diastolic dysfunction Insomnia Generalized anxiety disorder Major depressive disorder Diabetes mellitus, type 2 Depression Anxiety Greater trochanteric bursitis of right hip Sacroiliitis Spinal stenosis Degenerative disc disease, lumbar Neck pain Back pain with right-sided sciatica Patient has multiple reasons to have neuropathic pain in the lower extremities. But she also has back pain as well. We will check x-rays of the LS spine. She will send her to see Dr. Bernardo for potential procedures and other therapies that he may deem beneficial. CTS (carpal tunnel syndrome) Neuroforaminal stenosis of lumbar spine Splenomegaly Thrombocytopenia Hypertensive urgency Abnormal CT scan, pelvis anal/rectal thickening Gallbladder hydrops Acute calculous cholecystitis Symptomatic cholelithiasis Uncontrolled type 2 diabetes mellitus E coli bacteremia Obesity (BMI 30.0-34.9) GERMÁN (acute kidney injury) Gastroenteritis Septic shock Severe sepsis Diabetic retinopathy Dizziness Anxiety with depression Sinus tachycardia Hypertension Obesity (BMI 30-39.9) RAD (reactive airway disease) Illness Lumbar canal stenosis Foraminal stenosis of lumbar region Ligamentum flavum hypertrophy Facet hypertrophy of lumbar region Bulging lumbar disc Dehydration Renal insufficiency HLD (hyperlipidemia) HHD (hypertensive heart disease) CAD (coronary artery disease) Surgical History History of excision of mass History of cardiac catheterization History of cholecystectomy History of coronary artery stent placement Family History Other Cancer Family history of diabetes mellitus type II Family history of hypertension Social History Smoking Status: Never smoker second hand exposure: No alcohol intake: never substance use type: denies use current occupational status: disabled and other Travel in the last 8 weeks: None household members: none housing: house lives independently: Yes marital status: single number of children: 0 education level: high school current occupation: [employer] current occupational exposures/hazards: No caffeine: Yes ROS Obtained: Yes All systems reviewed & no additional complaints except as documented and Yes Systems reviewed as appropriate & no additional complaints except as documented Constitutional Constitutional: Reports system reviewed and no additional complaints, except as documented, Reports as per HPI, Denies body ache, Denies chills and Denies fever(s) Cardiovascular Cardiovascular: Reports system reviewed and no additional complaints, except as documented and Reports as per HPI Respiratory Respiratory: Reports system reviewed and no additional complaints, except as documented and Reports as per HPI Musculoskeletal Musculoskeletal: Reports system reviewed and no additional complaints, except as documented, Reports as per HPI and Reports other (chronic right shoulder pain ? knot on right bicept area) Physical Exam General General appearance: alert and in no apparent distress ENT ENT exam: Present mucous membranes moist Respiratory Respiratory exam: Present normal lung sounds bilaterally; Absent respiratory distress or wheezes Cardiovascular Cardiovascular exam: Present regular rate, normal rhythm and normal heart sounds Extremities Exam Extremities exam: Present other (reports chronic pain in her right shoulder and arm, denies new injury reports had a knot this morning but now is gone Denies loss of sensation able to move hands and fingers easily) Neurological Exam Neurological exam: Present alert, oriented X3 and normal gait Medical Decision Making Billy Inquiry Pt receiving controlled substance: No Billy was queried for this patient: No Vital Signs: 02/24/24 17:30 Temperature 98.2 F Temperature Source Oral Pulse Rate [Left Brachial] 84 Respiratory Rate 20 Blood Pressure [Left Arm] 165/82 H Blood Pressure Mean [Left Arm] 109 Blood Pressure Source [Left Arm] Automatic Cuff Blood Pressure Position [Left Arm] Sitting 02 Sat by Pulse Oximetry 95 Oxygen Delivery Method Room Air
[2024-02-24 18:24] VITALS: BP 165/82; PULSE 84; RESP 20; TEMP 36.8; O2SAT 95
== END 2024-02-24 18:26 | disposition home or self-care (01) ==
PROVIDERS: Emergency Provider Nurse Practitioner; PCP Internal Medicine
DX: M25.511 Pain in right shoulder (principal); G89.29 Other chronic pain
CPT/HCPCS: 99212; 99214; G0463

== ENCOUNTER 2024-03-01 13:19 | Outpatient (CLI) | payer MEDICARE, MEDICAID, SELFPAY ==
--- NOTE | 2024-03-01 13:25 | XR_ITS ---
FINAL REPORT CLINICAL HISTORY: left shoulder pain COMPARISON: None FINDINGS: LEFT SHOULDER Two views demonstrate no acute fracture or dislocation. There is mild degenerative change. The visualized bony structures are well aligned. No soft tissue abnormality is seen. There is postoperative change of the lower cervical spine. Electronic device overlies the lateral upper left arm. IMPRESSION: Degenerative changes without acute process. Reviewed, Interpreted and Dictated by Ronnell Tom III, MD Transcribed by Shara Sanchez Authenticated and [facility]
--- NOTE | 2024-03-01 13:25 | XR_ITS ---
FINAL REPORT CLINICAL HISTORY: right shoulder pain COMPARISON: 05/29/2023 FINDINGS: RIGHT SHOULDER Two views demonstrate no acute fracture or dislocation. There is mild AC joint and glenohumeral joint degenerative change. The visualized bony structures are well aligned. No soft tissue abnormality is seen. IMPRESSION: Degenerative changes without acute process. Reviewed, Interpreted and Dictated by Ronnell Tom III, MD Transcribed by Shara Sanchez Authenticated and [facility]
== END 2024-03-01 23:59 | disposition home or self-care (01) ==
LOC: RAD 13:20
PROVIDERS: PCP Internal Medicine; Visit Provider Physician Assistant
DX: M25.512 Pain in left shoulder (principal); M25.511 Pain in right shoulder; G89.29 Other chronic pain
CPT/HCPCS: 73030

== ENCOUNTER 2024-03-11 09:22 | Outpatient (CLI) | payer MEDICARE, MEDICAID, SELFPAY ==
[2024-03-11 09:50] LABS: INR 1.09 (0.9-1.1); Prothrombin Time 12.1 seconds (10.1-12.5)
[2024-03-11 15:44] LABS: Occult Blood,Stool Negative (Negative)
[2024-03-12 09:10] LABS: AFP, Tumor Marker 2.8 ng/mL (0.0-9.2)
[2024-03-16 06:16] LABS: ALT (SGPT) P5P 27 IU/L (0-40); AST (SGOT) P5P 54 IU/L (0-40); Alpha 2-Macroglobulins, Qn 319 mg/dL (110-276); Apolipoprotein A-1 104 mg/dL (116-209); Bilirubin, Total 0.7 mg/dL (0.0-1.2); Cholesterol, Total 130 mg/dL (100-199); GGT 51 IU/L (0-60); Glucose 122 mg/dL (70-99); Haptoglobin <10 mg/dL (37-355); Steatosis Score 0.53 (0.00-0.40); Triglycerides 124 mg/dL (0-149)
[2024-03-16 16:14] LABS: Calprotectin, Fecal 61 ug/g (0-120)
[2024-03-17 14:13] LABS: Pancreatic Elastase, Fecal >800 (>200)
== END 2024-03-11 23:59 | disposition home or self-care (01) ==
PROVIDERS: PCP Internal Medicine; Visit Provider Nurse Practitioner
DX: K74.60 Unspecified cirrhosis of liver (principal); R19.5 Other fecal abnormalities; E11.69 Type 2 diabetes mellitus with other specified complication; E66.9 Obesity, unspecified; R10.9 Unspecified abdominal pain; Z68.32 Body mass index [BMI] 32.0-32.9, adult
CPT/HCPCS: 36415; 82105; 82272; 82656; 83993; 85610; G0328

== ENCOUNTER 2024-04-08 08:35 | Outpatient (CLI) | payer MEDICARE, MEDICAID, SELFPAY ==
[2024-04-08 19:31] LABS: Hemoglobin A1C 6.4 % (4.0-6.0)
[2024-04-09 08:05] LABS: HIV (1&2) Antibody Rapid NONREACTIVE (NONREACTIVE)
[2024-04-10 09:57] LABS: HBsAg Screen Negative (Negative); HCV Ab Non Reactive (Non Reactive); Hep A Ab, IGM Negative (Negative); Hep B Core Ab, IgM Negative (Negative)
== END 2024-04-08 23:59 | disposition home or self-care (01) ==
LOC: LAB.DROPOF 04-09 13:43
PROVIDERS: PCP Internal Medicine; Visit Provider Internal Medicine
DX: B15.9 Hepatitis A without hepatic coma (principal); E11.9 Type 2 diabetes mellitus without complications
CPT/HCPCS: 80074; 83036; 87389

== ENCOUNTER 2024-04-29 14:40 | Outpatient (CLI) | payer MEDICARE, MEDICAID, SELFPAY ==
[2024-04-29 14:50] LABS: Adenovirus F 40/41, stool Not Detected (NotDetected); Astrovirus Not Detected (NotDetected); Campylobacter Not Detected (NotDetected); Clostridium Difficile A/B, PCR Not Detected (NotDetected); Cryptosporidium Not Detected (NotDetected); Cyclospora Cayetanesis Not Detected (NotDetected); Entamoeba histolytica Not Detected (NotDetected); Enteroaggregative E coli Not Detected (NotDetected); Enteropathogenic E coli Not Detected (NotDetected); Enterotoxigenic E coli Not Detected (NotDetected); Giardia lamblia Not Detected (NotDetected); Norovirus Not Detected (NotDetected); Plesimonas Shigalloides, PCR Not Detected (NotDetected); Rotavirus A Not Detected (NotDetected); Salmonella, PCR Not Detected (NotDetected); Sapovirus Not Detected (NotDetected); Shiga-like toxin E coli Not Detected (NotDetected); Shigella Enterovasive E coli Not Detected (NotDetected); Vibrio Cholerae Not Detected (NotDetected); Vibrio, PCR Not Detected (NotDetected); Yersinia Entercolitica, PCR Not Detected (NotDetected)
[2024-05-04 02:53] LABS: Pancreatic Elastase, Fecal >800 (>200)
== END 2024-04-29 23:59 | disposition home or self-care (01) ==
LOC: LAB.DROPOF 14:41
PROVIDERS: PCP Internal Medicine; Visit Provider Internal Medicine Gastroenterology
DX: R19.7 Diarrhea, unspecified (principal); R15.2 Fecal urgency; R15.9 Full incontinence of feces; K74.00 Hepatic fibrosis, unspecified; E83.118 Other hemochromatosis; K75.81 Nonalcoholic steatohepatitis (NASH)
CPT/HCPCS: 82656; 87506

== ENCOUNTER 2024-05-23 01:19 | Emergency (ER) | payer MEDICARE, MEDICAID, SELFPAY ==
[2024-05-23 01:20] VITALS: BP 161/102; PULSE 103; RESP 18; TEMP 36.8; O2SAT 100; BMI 31.2
--- NOTE | 2024-05-23 01:44 | XR_ITS ---
PROCEDURE INFORMATION: Exam: XR Soft Tissue Neck Exam date and time: 05/23/2024 1:49 AM Age: 64 years old Clinical indication: Painful swallowing; Additional info: Pill stuck around cricoid level TECHNIQUE: Imaging protocol: Radiologic exam of the soft tissues of the neck. COMPARISON: CT ANGIO NECK 01/13/2023 7:06 PM FINDINGS: Airway: Normal. No abnormal narrowing. Soft tissues: Prevertebral soft tissues are within normal limits. Bones/joints: Anterior fusion at C6-C7. There is mild exaggeration of the cervical curvature. No acute fracture or subluxation is seen. There is mild multilevel degenerative change. IMPRESSION: No radiopaque foreign body is identified in the visualized aerodigestive tract
--- NOTE | 2024-05-23 02:17 | PC.NURSE ---
[facility] pharmacy stated that colestipol tablet should not cause any esophageal irritation from being lodged for several hours.
--- NOTE | 2024-05-23 02:26 | HMH.EDGENADL ---
Discharge Plan Disposition Patient Disposition: Home, Self-Care Condition: Good Prescriptions Prescriptions: No Action insulin aspart U-100 [Novolog U-100 Insulin aspart] 100 unit/mL solution 5 unit SQ ACHS (DME) Omnipod 5 G6 Pods (Gen 5) Cartridge See Rx Instructions .ROUTE .MEDSUPPLY Qty: 5 Rx Instructions: As directed colestipol [Colestid] 1 gram tablet 1 g PO .Nightly MDD 2 tablets p.o. nightly 30 Days Qty: 60 12RF Rx Instructions: 2 tablets p.o. nightly dicyclomine 10 mg capsule 10 mg PO BID Qty: 60 6RF Rx Instructions: 1 tablet p.o. twice daily triamcinolone acetonide 0.1 % cream topical mupirocin 2 % ointment topical Mounjaro 5 mg/0.5 mL pen injector SQ gabapentin 800 mg tablet 800 mg PO TID 30 Days Qty: 90 2RF hydrocodone-acetaminophen 10-325 mg tablet 1 tab PO QID Qty: 120 0RF lisinopril 10 mg tablet 10 mg PO BID 30 Days Qty: 60 3RF doxycycline hyclate 100 mg capsule 100 mg PO BID 14 Days Qty: 28 0RF (DME) pen needle, diabetic [BD Ultra-Fine Mini Pen Needle] 31 gauge x 3/16 needle See Rx Instructions .Route Qty: 100 1RF Rx Instructions: As directed (DME) OneTouch Ultra Test Strip See Rx Instructions .ROUTE .MEDSUPPLY Qty: 100 3RF Rx Instructions: As directed or bid (DME) lancets [OneTouch Delica Plus Lancet] 33 gauge misc See Rx Instructions .ROUTE .COMPLEX Qty: 100 0RF Dose Instruction: USE DIRECTED TO TEST BLOOD SUGAR Rx Instructions: USE DIRECTED TO TEST BLOOD SUGAR hydroxyzine pamoate 50 mg capsule 50 mg PO HSP PRN (Reason: sleep) 90 Days Qty: 90 0RF aspirin 81 mg tablet,delayed release (DR/EC) See Rx Instructions .ROUTE .COMPLEX Qty: 30 11RF Dose Instruction: TAKE ONE TABLET BY MOUTH AT BEDTIME FOR HEART DISEASE Rx Instructions: TAKE ONE TABLET BY MOUTH AT BEDTIME FOR HEART DISEASE cholecalciferol (vitamin D3) 125 mcg (5,000 unit) capsule See Rx Instructions .ROUTE .COMPLEX Qty: 60 3RF Dose Instruction: TAKE 2 CAPSULES BY MOUTH ONCE A DAY Rx Instructions: TAKE 2 CAPSULES BY MOUTH ONCE A DAY Trintellix 20 mg tablet See Rx Instructions .ROUTE .COMPLEX Qty: 90 0RF Dose Instruction: TAKE ONE TABLET BY MOUTH ONCE A DAY FOR MOOD Rx Instructions: TAKE ONE TABLET BY MOUTH ONCE A DAY FOR MOOD (DME) lancets [OneTouch Delica Plus Lancet] 30 gauge misc See Rx Instructions .ROUTE .COMPLEX Qty: 100 4RF Dose Instruction: USE DIRECTED TO TEST BLOOD SUGAR Rx Instructions: USE DIRECTED TO TEST BLOOD SUGAR bisoprolol fumarate 10 mg tablet 10 mg PO BID Qty: 180 1RF furosemide 40 mg tablet See Rx Instructions .ROUTE .COMPLEX Qty: 180 1RF Dose Instruction: TAKE ONE TABLET BY MOUTH 2 TIMES A DAY NEEDED FOR EDEMA Rx Instructions: TAKE ONE TABLET BY MOUTH 2 TIMES A DAY NEEDED FOR EDEMA metformin 1,000 mg tablet See Rx Instructions .ROUTE .COMPLEX Qty: 60 0RF Dose Instruction: TAKE ONE TABLET BY MOUTH 2 TIMES A DAY Rx Instructions: TAKE ONE TABLET BY MOUTH 2 TIMES A DAY atorvastatin 20 mg tablet See Rx Instructions .ROUTE .COMPLEX Qty: 30 0RF Dose Instruction: TAKE ONE TABLET BY MOUTH AT BEDTIME Rx Instructions: TAKE ONE TABLET BY MOUTH AT BEDTIME clopidogrel [Plavix] 75 mg tablet See Rx Instructions .ROUTE .COMPLEX Rx Instructions: TAKE ONE TABLET BY MOUTH ONCE A 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 Instructions Additional Instructions/Restrictions: You were evaluated in the ER and are appropriate for discharge at this time. Continue all home medications as prescribed. Drink plenty of water. Talk to your GI doctor on Friday to see if you can split the colestipol tablet when taking it. Make an appointment with your primary care doctor for reevaluation in a few days. Return to the ER with any new, worsening, or otherwise concerning symptoms Clinical Impressions Clinical Impression: Pill dysphagia, Dysphagia Print Language Print Language: Swedish Discharge ED Provider: Mandy Cedeno Adult HPI General Chief complaint: Nausea/Vomiting/Diarrhea Stated complaint: pill stuck in throat Time Seen by Provider: 05/23/24 01:26 Mode of Arrival: Ambulatory Source of Information: Patient Limitations: No Limitations Description of Symptoms (Recalled from ER Triage Doc. by RN): pt reports a pill is caught in her throat . she took her night time medications one hour ago where it felt like one had gotten stuck. pt tried to remove it at home without improvement. History of Present Illness HPI narrative: 64-year-old female presents to the ER concerned that her GI pill is caught in her throat. She states a few weeks ago she was prescribed a large tablet by Dr. Cote. She states she took it tonight and felt like it got stuck. She states she is been gagging and unable to swallow saliva or liquids at home. She came to the ER approximately 1 hour after this event started. Patient reports no chest pain or difficulty breathing. She states she does not know the exact pill but after review of records and discussion with the patient, it was identified as colestipol. Patient reports no other complaints or concerns. She points to the level of approximately her cricoid when asked to show where she feels the pill stuck. ROS otherwise negative. Related Data Home Medications ?Medication ?Instructions ?Recorded ?Confirmed insulin aspart U-100 100 unit/mL 5 unit SQ ACHS 05/16/23 05/11/24 subcutaneous solution (Novolog U-100 Insulin aspart) insulin pump cart,automated,BT #5 ea 05/16/23 05/11/24 (Omnipod 5 G6 Pods (Gen 5) subcutaneous cartridge) clopidogrel 75 mg tablet (Plavix) See Rx Instructions .Route .COMPLEX 12/18/23 05/11/24 mupirocin 2 % topical ointment topical 03/11/24 05/11/24 triamcinolone acetonide 0.1 % applic topical 03/11/24 05/11/24 topical cream tirzepatide 5 mg/0.5 mL mg SQ 05/06/24 05/11/24 subcutaneous pen injector (Oliva) Previous Rx's ?Medication ?Instructions ?Recorded pen needle, diabetic 31 gauge x #100 ea 03/28/2310/10 (BD Ultra-Fine Mini Pen Needle) blood sugar diagnostic (OneTouch #100 ea 09/19/23 Ultra Test strips) lancets 33 gauge (OneTouch Delica #100 ea 09/19/23 Plus Lancet) hydroxyzine pamoate 50 mg capsule 50 mg PO HSP PRN sleep 90 days #90 10/20/23 caps aspirin 81 mg tablet,delayed See Rx Instructions .Route 11/19/23 release .COMPLEX #30 tabs menthol 4 % topical gel (Biofreeze 1 applic topical TID PRN pain #89 02/24/24 (menthol)) mL cholecalciferol (vitamin D3) 125 See Rx Instructions .Route 03/04/24 mcg (5,000 unit) capsule .COMPLEX #60 caps vortioxetine 20 mg tablet See Rx Instructions .Route 03/22/24 (Trintellix) .COMPLEX #90 tabs lancets 30 gauge (OneTouch Delica #100 ea 04/14/24 Plus Lancet) bisoprolol fumarate 10 mg tablet 10 mg PO BID High blood pressure 04/21/24 #180 tabs furosemide 40 mg tablet See Rx Instructions .Route 04/21/24 .COMPLEX #180 tabs colestipol 1 gram tablet (Colestid) 1 g PO .Nightly 30 days #60 tabs 04/27/24 dicyclomine 10 mg capsule 10 mg PO BID #60 caps 04/27/24 gabapentin 800 mg tablet 800 mg PO TID 30 days #90 tabs 05/06/24 hydrocodone 10 mg-acetaminophen 1 tab PO QID Pain #120 tabs 05/06/24 325 mg tablet lisinopril 10 mg tablet 10 mg PO BID High blood pressure 05/06/24 30 days #60 tabs doxycycline hyclate 100 mg capsule 100 mg PO BID infection 14 days 05/11/24 #28 caps atorvastatin 20 mg tablet See Rx Instructions .Route 05/20/24 .COMPLEX #30 tabs metformin 1,000 mg tablet See Rx Instructions .Route 05/20/24 .COMPLEX #60 tabs Allergies Allergy/AdvReac Type Severity Reaction Status Date / Time No Known Allergies Allergy Verified 05/11/24 14:17 [facility] Disclaimer: The information contained in this section may have been updated after the patient was seen, as this information can be updated by other users. Medical History Loose stools Stomach pain Nausea Pulmonary regurgitation Foot pain, left Pulmonary vascular congestion Diastolic dysfunction Insomnia Generalized anxiety disorder Major depressive disorder Diabetes mellitus, type 2 Depression Anxiety Greater trochanteric bursitis of right hip Sacroiliitis Spinal stenosis Degenerative disc disease, lumbar Neck pain Back pain with right-sided sciatica Patient has multiple reasons to have neuropathic pain in the lower extremities. But she also has back pain as well. We will check x-rays of the LS spine. She will send her to see Dr. Bernardo for potential procedures and other therapies that he may deem beneficial. CTS (carpal tunnel syndrome) Neuroforaminal stenosis of lumbar spine Splenomegaly Thrombocytopenia Hypertensive urgency Abnormal CT scan, pelvis anal/rectal thickening Gallbladder hydrops Acute calculous cholecystitis Symptomatic cholelithiasis Uncontrolled type 2 diabetes mellitus E coli bacteremia Obesity (BMI 30.0-34.9) GERMÁN (acute kidney injury) Gastroenteritis Septic shock Severe sepsis Diabetic retinopathy Dizziness Anxiety with depression Sinus tachycardia Hypertension Obesity (BMI 30-39.9) RAD (reactive airway disease) Illness Lumbar canal stenosis Foraminal stenosis of lumbar region Ligamentum flavum hypertrophy Facet hypertrophy of lumbar region Bulging lumbar disc Dehydration Renal insufficiency HLD (hyperlipidemia) HHD (hypertensive heart disease) CAD (coronary artery disease) Surgical History History of excision of mass History of cardiac catheterization History of cholecystectomy History of coronary artery stent placement Family History Other Cancer Family history of diabetes mellitus type II Family history of hypertension Social History Smoking Status: Never smoker second hand exposure: No alcohol intake: current alcohol intake frequency: a few times a month substance use type: denies use current occupational status: disabled and other Travel in the last 8 weeks: None household members: none housing: house lives independently: Yes marital status: single number of children: 0 education level: high school current occupation: [employer] current occupational exposures/hazards: No caffeine: Yes Other Medical History Have you received the Flu Vaccine for this season: No Have you received the Pneumonia Vaccine: No ROS Obtained: Yes Systems reviewed as appropriate & no additional complaints except as documented Positive ROS per HPI Physical Exam General General appearance: alert and in no apparent distress Head Head exam: atraumatic and normocephalic Eye Eye exam: Present PERRL and EOMI ENT ENT exam: Present mucous membranes moist Neck Neck exam: Present normal inspection, full ROM, trachea midline and other (No palpable mass or other abnormality, no stridor); Absent tenderness Chest Chest inspection: Present symmetric chest wall rise Respiratory Respiratory exam: Present normal lung sounds bilaterally; Absent respiratory distress, wheezes or stridor Cardiovascular Cardiovascular exam: Present regular rate and normal rhythm Abdominal Exam Abdominal exam: Present soft; Absent distention, tenderness, guarding or rebound Comment: Patient actively gagging anytime she tries to swallow saliva or liquids. 9 abdominal exam Extremities Exam Extremities exam: Present full ROM; Absent edema Neurological Exam Neurological exam: Present alert and oriented X3; Absent motor sensory deficit Psychiatric Psychiatric exam: Present normal affect and normal mood Skin Skin exam: Present warm and dry Medical Decision Making Medical Records Screening: Per USPSTF and CDC recommendations, given the prevalence of disease in our region, it is our hospital?s policy to screen for HIV and viral Hepatitis for all patients aged 18 and over and those with ongoing risk factors. Billy Inquiry Pt receiving controlled substance: No Vital Signs: 05/23/24 01:20 Temperature 98.3 F Temperature Source Oral Pulse Rate [Right] 103 H Respiratory Rate 18 Blood Pressure [Right Arm] 161/102 H Blood Pressure Mean [Right Arm] 121 02 Sat by Pulse Oximetry 100 Oxygen Delivery Method Room Air Orders (Tests/Meds): ED MEDICATIONS Discontinued Medications Generic Name Dose Route Start Last Admin Trade Name Freq PRN Reason Stop Dose Admin Glucagon 1 mg 05/23/24 01:44 Glucagon 1 Mg/Ml Vial IV 05/23/24 01:45 ONCE ONE ORDERS Category Date Time Status XR soft tissue neck Stat Exams 05/23/24 01:44 Completed Medical Decision Narrative: In summary, this 64-year-old female with a history of diabetes currently being treated for chronic diarrhea by GI presents to the emergency department today with a pill stuck in her throat. On initial evaluation patient is hemodynamically stable, afebrile, she does have a sensation of pill stuck at approximately level of the cricoid, no stridor, no respiratory compromise, no palpable mass in the neck, patient cannot swallow liquids or saliva at this time. Differential diagnosis includes but is not limited to lodged pill, I considered the possibility of airway compromise, esophageal perforation, but I have no suspicion for these clinically. I initially attempted to have patient drink a carbonated beverage and jump landing with firm heel strike. This did not work so an IV was placed and glucagon was ordered, however before glucagon was administered, patient tried the carbonated beverage and heel strike a few more times, and she stated suddenly felt better. Patient went for soft tissue neck x-ray and I do not appreciate any radiopaque blockage or obvious abnormality of the esophagus or other abnormality in the neck on my personal interpretation. See radiology read for final interpretation. Patient was briefly monitored in the ER and had no recurrence of symptoms, she is tolerating oral intake without any pain or discomfort. I discussed this patient's pill being lodged in her throat with the on-call pharmacist who stated the colestipol tablet should not cause any chemical irritation of the esophagus since it is a tablet. Since patient's symptoms are resolved and there are no other acute concerns at this time, she is appropriate for discharge. I encouraged her to follow-up with GI and asked them if she can cut this tablet to take in the future to avoid this problem. Patient was given instructions on symptomatic management, follow up instructions, and return precautions for the emergency department. Patient indicated understanding and was discharged in stable condition. Critical Care Critical Care Time Critical Care Time: No
[2024-05-23 02:43] VITALS: BP 161/102; PULSE 103; RESP 16; TEMP 36.8; O2SAT 100
== END 2024-05-23 02:47 | disposition home or self-care (01) ==
PROVIDERS: Emergency Provider Emergency Medicine; PCP Internal Medicine
DX: R13.10 Dysphagia, unspecified (principal)
CPT/HCPCS: 70360; 96374; 99283

== ENCOUNTER 2024-06-16 10:32 | Day surgery (SDC) | payer MEDICARE, MEDICAID, SELFPAY ==
[2024-06-15 09:17] VITALS: BMI 28.1
[2024-06-16 10:59] VITALS: BP 148/77; PULSE 83; RESP 18; TEMP 36.3; O2SAT 95
--- NOTE | 2024-06-16 11:04 | EXP.ANES.CKL ---
[facility] Disclaimer: The information contained in this section may have been updated after the patient was seen, as this information can be updated by other users. Medical History Loose stools Stomach pain Nausea Pulmonary regurgitation Foot pain, left Pulmonary vascular congestion Diastolic dysfunction Insomnia Generalized anxiety disorder Major depressive disorder Diabetes mellitus, type 2 Depression Anxiety Greater trochanteric bursitis of right hip Sacroiliitis Spinal stenosis Degenerative disc disease, lumbar Neck pain Back pain with right-sided sciatica Patient has multiple reasons to have neuropathic pain in the lower extremities. But she also has back pain as well. We will check x-rays of the LS spine. She will send her to see Dr. Bernardo for potential procedures and other therapies that he may deem beneficial. CTS (carpal tunnel syndrome) Neuroforaminal stenosis of lumbar spine Splenomegaly Thrombocytopenia Hypertensive urgency Abnormal CT scan, pelvis anal/rectal thickening Gallbladder hydrops Acute calculous cholecystitis Symptomatic cholelithiasis Uncontrolled type 2 diabetes mellitus E coli bacteremia Obesity (BMI 30.0-34.9) GERMÁN (acute kidney injury) Gastroenteritis Septic shock Severe sepsis Diabetic retinopathy Dizziness Anxiety with depression Sinus tachycardia Hypertension Obesity (BMI 30-39.9) RAD (reactive airway disease) Illness Lumbar canal stenosis Foraminal stenosis of lumbar region Ligamentum flavum hypertrophy Facet hypertrophy of lumbar region Bulging lumbar disc Dehydration Renal insufficiency HLD (hyperlipidemia) HHD (hypertensive heart disease) CAD (coronary artery disease) Surgical History History of excision of mass History of cardiac catheterization History of cholecystectomy History of coronary artery stent placement Family History Other Cancer Family history of diabetes mellitus type II Family history of hypertension Social History Smoking Status: Never smoker second hand exposure: No alcohol intake: current alcohol intake frequency: a few times a month substance use type: denies use current occupational status: disabled and other Travel in the last 8 weeks: None household members: none housing: house lives independently: Yes marital status: single number of children: 0 education level: high school current occupation: [employer] current occupational exposures/hazards: No caffeine: Yes [facility] Anesthesia Checklist Patient Identification Patient Identification: Arm Band Structural Data Admitted From: Home Planned Operative Procedure/s: Colonoscopy Consent for Planned Operative Procedure(s) Verified: Yes Verified Documents: Surgical Consent and History and Physical NPO Status Verified Time NPO: 00:00 Additional verifications Anesthesia Reactions: No Hx Blood Transfusions: No Blood Transfusion Reaction: No Airway Assessment Mallampati Score:: Class II C-Spine Mobility Assessed: Yes TMJ Mobility Assessed: Yes Dentition: Poor Dentition Neurological Assessment Level of Consciousness: Awake, Alert and Appropriate Anesthesia Plan Anesthesia Risk discussed: Yes Anesthesia Plan: Verified ASA Class: III Anesthesia Type: MAC
[2024-06-16] MEDS: LACTATED RINGERS 1000ML 1,000 ML 25 ML IV (11:05)
[2024-06-16 11:06] LABS: POC Glucose,Bedside 92 (70-110)
[2024-06-16 11:07] VITALS: O2SAT 94
--- NOTE | 2024-06-16 11:12 | EXP.HP ---
History of Present Illness *Admission Date: 06/16/24 *Reason for visit:: Chronic diarrhea with urgency and incontinence *History of present illness: Mrs. Coronel is a 64-year-old female who is here for diagnostic colonoscopy secondary to diarrhea, frequency and fecal incontinence. The examination is deemed medically necessary for colonoscopy. The patient has been seen, interviewed and examined prior to the procedure by both myself and the anesthesia provider. [facility] Disclaimer: The information contained in this section may have been updated after the patient was seen, as this information can be updated by other users. Medical History Loose stools Stomach pain Nausea Pulmonary regurgitation Foot pain, left Pulmonary vascular congestion Diastolic dysfunction Insomnia Generalized anxiety disorder Major depressive disorder Diabetes mellitus, type 2 Depression Anxiety Greater trochanteric bursitis of right hip Sacroiliitis Spinal stenosis Degenerative disc disease, lumbar Neck pain Back pain with right-sided sciatica Patient has multiple reasons to have neuropathic pain in the lower extremities. But she also has back pain as well. We will check x-rays of the LS spine. She will send her to see Dr. Bernardo for potential procedures and other therapies that he may deem beneficial. CTS (carpal tunnel syndrome) Neuroforaminal stenosis of lumbar spine Splenomegaly Thrombocytopenia Hypertensive urgency Abnormal CT scan, pelvis anal/rectal thickening Gallbladder hydrops Acute calculous cholecystitis Symptomatic cholelithiasis Uncontrolled type 2 diabetes mellitus E coli bacteremia Obesity (BMI 30.0-34.9) GERMÁN (acute kidney injury) Gastroenteritis Septic shock Severe sepsis Diabetic retinopathy Dizziness Anxiety with depression Sinus tachycardia Hypertension Obesity (BMI 30-39.9) RAD (reactive airway disease) Illness Lumbar canal stenosis Foraminal stenosis of lumbar region Ligamentum flavum hypertrophy Facet hypertrophy of lumbar region Bulging lumbar disc Dehydration Renal insufficiency HLD (hyperlipidemia) HHD (hypertensive heart disease) CAD (coronary artery disease) Surgical History History of excision of mass History of cardiac catheterization History of cholecystectomy History of coronary artery stent placement Family History Other Cancer Family history of diabetes mellitus type II Family history of hypertension Social History Smoking Status: Never smoker second hand exposure: No alcohol intake: current alcohol intake frequency: a few times a month substance use type: denies use current occupational status: disabled and other Travel in the last 8 weeks: None household members: none housing: house lives independently: Yes marital status: single number of children: 0 education level: high school current occupation: [employer] current occupational exposures/hazards: No caffeine: No Other Medical History Have you received the Flu Vaccine for this season: No Have you received the Pneumonia Vaccine: No Review of Systems Review of Systems Review of systems (narrative): Negative *Cardiovascular Comments: Negative *Gastrointestinal Comments: Negative *Genitourinary Comments: Negative *Musculoskeletal Comments: Negative *Neurologic Comments: Negative Meds Home Medications and Allergies Home Medications ?Medication ?Instructions ?Recorded ?Confirmed ?Type pen needle, diabetic 31 gauge x #100 ea 03/28/23 06/15/24 Rx 3/16 (BD Ultra-Fine Mini Pen Needle) insulin aspart U-100 100 unit/mL 5 unit SQ ACHS 05/16/23 06/16/24 History subcutaneous solution (Novolog U-100 Insulin aspart) insulin pump cart,automated,BT #5 ea 05/16/23 06/15/24 History (Omnipod 5 G6 Pods (Gen 5) subcutaneous cartridge) blood sugar diagnostic (OneTouch #100 ea 09/19/23 06/15/24 Rx Ultra Test strips) lancets 33 gauge (OneTouch Delica #100 ea 09/19/23 06/15/24 Rx Plus Lancet) hydroxyzine pamoate 50 mg capsule 50 mg PO HSP PRN sleep 90 days #90 10/20/23 06/16/24 Rx caps aspirin 81 mg tablet,delayed See Rx Instructions .Route 11/19/23 06/16/24 Rx release .COMPLEX #30 tabs clopidogrel 75 mg tablet (Plavix) See Rx Instructions .Route .COMPLEX 12/18/23 06/16/24 History menthol 4 % topical gel (Biofreeze 1 applic topical TID PRN pain #89 02/24/24 06/16/24 Rx (menthol)) mL cholecalciferol (vitamin D3) 125 See Rx Instructions .Route 03/04/24 06/16/24 Rx mcg (5,000 unit) capsule .COMPLEX #60 caps mupirocin 2 % topical ointment 2 applic topical DAILY 03/11/24 06/16/24 History triamcinolone acetonide 0.1 % 0.1 applic topical DAILY 03/11/24 06/16/24 History topical cream (Triderm) vortioxetine 20 mg tablet See Rx Instructions .Route 03/22/24 06/16/24 Rx (Trintellix) .COMPLEX #90 tabs lancets 30 gauge (OneTouch Delica #100 ea 04/14/24 06/15/24 Rx Plus Lancet) bisoprolol fumarate 10 mg tablet 10 mg PO BID High blood pressure 04/21/24 06/16/24 Rx #180 tabs furosemide 40 mg tablet See Rx Instructions .Route 04/21/24 06/16/24 Rx .COMPLEX #180 tabs colestipol 1 gram tablet (Colestid) 1 g PO .Nightly 30 days #60 tabs 04/27/24 06/16/24 Rx gabapentin 800 mg tablet 800 mg PO TID 30 days #90 tabs 05/06/24 06/16/24 Rx lisinopril 10 mg tablet 10 mg PO BID High blood pressure 05/06/24 06/16/24 Rx 30 days #60 tabs tirzepatide 5 mg/0.5 mL 5 mg SQ WEEKLY 05/06/24 06/16/24 History subcutaneous pen injector (Oliva) atorvastatin 20 mg tablet See Rx Instructions .Route 05/20/24 06/16/24 Rx .COMPLEX #30 tabs metformin 1,000 mg tablet See Rx Instructions .Route 05/20/24 06/16/24 Rx .COMPLEX #60 tabs hydrocodone 10 mg-acetaminophen 1 tab PO QID Pain #120 tabs 05/31/24 06/16/24 Rx 325 mg tablet blood-glucose meter (OneTouch #1 ea 06/15/24 06/15/24 History Ultra2 Meter) New Prescriptions to Start Prescriptions: Allergies Allergy/AdvReac Type Severity Reaction Status Date / Time No Known Allergies Allergy Verified 06/16/24 10:53 Exam Data for Last 24 hours Vital signs and Labs for Last 24 Hours: Temp Pulse Resp BP Pulse Ox O2 Del Method 97.4 F L 83 18 148/77 H 95 Room Air 06/16/24 10:59 06/16/24 10:59 06/16/24 10:59 06/16/24 10:59 06/16/24 10:59 06/16/24 10:59 Laboratory Results - last 24 hr 06/16/24 10:56: POC Glucose 92 I & O for Last 24 hours: Intake & Output 06/13/24 06/14/24 06/15/24 06/16/24 23:59 23:59 23:59 23:59 Weight 180 lb *Routine HEENT Exam Head: Present normocephalic Eye: Present EOMI and PERRL ENT: Present mucous membranes moist *Routine Neck Exam Neck: Present supple *Routine Respiratory Exam Respiratory: Present CTA bilaterally *Routine Cardiovascular Exam Cardiovascular: Present RRR *Routine Abdominal Exam Abdominal: Present soft and normoactive bowel sounds; Absent tenderness *Routine Rectal Exam Rectal:: deferred *Routine Genitalia Exam Genitalia:: deferred *Routine Extremities Exam Extremities: Absent cyanosis, clubbing or edema *Routine Skin Exam Skin: Present warm; Absent rash *Routine Neurological Exam Neurological: Present alert and oriented X3 Assessment and Plan *Assessment and plan (1) Chronic diarrhea: Status: Acute Category: Medical Code(s): K52.9 - Noninfective gastroenteritis and colitis, unspecified (2) Fecal urgency: Status: Acute Category: Medical Code(s): R15.2 - Fecal urgency (3) Fecal incontinence: Status: Acute Category: Medical Code(s): R15.9 - Full incontinence of feces Plan A/P: 1. Chronic diarrhea with fecal incontinence and urgency is the preprocedural diagnosis. The patient will be anesthetized/sedated using MAC sedation. The patient has been seen and examined. Cardiac and lung assessment prior to the examination is stable. Proceed with planned diagnostic colonoscopy
--- NOTE | 2024-06-16 11:13 | HMH.PROCNOTE ---
[facility] Procedure Note Date: 06/16/24 Time: 11:31 Procedure Note:: Colonoscopy Procedure Report: Colonoscopy with cold snare polypectomy and cold biopsies Endoscopist: Law Cote II, MD Referring physician: Connor Dimas DO Date of Procedure: June 16, 2024 Equipment: Olympus 190 variable stiffness pediatric colonoscope Sedation: MAC sedation Indication: Mrs. Coronel is a 64-year-old female with chronic daily diarrhea which was loose and watery. She has had this for several years. She does get some crampy lower abdominal discomfort. She reports fecal urgency and frequency with episodic fecal incontinence once or twice a month. She feels like she needs to be near the bathroom. Her fecal calprotectin was normal at 61. Her fecal elastase was greater than 800 mcg/g indicative of no EPI. She reports no rectal bleeding, weight loss or family history of colon cancer. Her mother had gastric cancer. The patient has markedly improved with bulking FiberCon 2 tablets daily or twice daily. The patient also had prior cholecystectomy and was placed on Colestid for bile acid binding/bile acid diarrhea. This is also helping and she takes this at bedtime. Initially she had trouble swallowing. The patient did have EGD and colonoscopy in January 2022 (Ariel Roche MD). The colonoscopy was reportedly normal. Procedure: Prior to the procedure, a history and physical exam was performed, and patient's medications and allergies were reviewed. The risks, benefits and alternatives of the sedation and procedure were discussed with the patient. All questions were answered and informed consent was obtained. The patient was brought to the procedure room. Patient identification and proposed procedure were verified by the physician and the nurse. The patient was placed in a left lateral decubitus position and the scope was passed under direct vision. Throughout the procedure, the patient's blood pressure, pulse, and oxygen saturations were monitored continuously. The colonoscopy was accomplished without difficulty. The patient tolerated the procedure well. Findings: On digital rectal examination there was normal rectal tone. There were no external hemorrhoids. The colonoscope was introduced through the anal canal to the rectum and advanced to the cecum. The ileocecal valve and appendiceal orifice were identified. The scope was advanced a short distance into the ileum which appeared grossly normal. The scope was then withdrawn into the colon. There was a single 5 mm polyp in the transverse colon removed via cold snare polypectomy. The remaining cecum, ascending, transverse, descending, sigmoid and rectum were grossly normal. Random biopsies were taken from both the right and left colon to rule out microscopic colitis. There were no mucosal abnormalities identified. Upon retroflexion within the rectum there were grade 1-2 internal hemorrhoids.The preparation was excellent throughout with Morton Preparation Score of 9. The cecal time was 12 minutes. Impression: 1. Diminutive transverse colon polyp 2. Grade 1-2 internal hemorrhoids Plan: I will follow-up the random biopsies to rule out microscopic colitis. I will discuss the findings with the patient and family. I will follow-up the polyp histology and recommend repeat surveillance colonoscopy again in 7 years if the polyp is adenomatous. The patient has responded very well to bulking FiberCon in the morning and Colestid bile acid binding agent for her chronic bile acid diarrhea (subsequent to cholecystectomy). Her bowel function is now more regulated and she is not having the loose and watery chronic diarrhea which she had for years.
[2024-06-16 11:35] VITALS: BP 98/59; PULSE 79; RESP 16; TEMP 36.3; O2SAT 95
[2024-06-16 11:45] VITALS: BP 108/61; PULSE 81; RESP 18; O2SAT 97
[2024-06-16 11:55] VITALS: BP 129/70; PULSE 84; RESP 18; O2SAT 97
[2024-06-16 12:10] VITALS: BP 137/77; PULSE 86; RESP 18; O2SAT 97
== END 2024-06-16 12:10 | disposition home or self-care (01) ==
PROVIDERS: PCP Internal Medicine; Visit Provider Internal Medicine Gastroenterology
PROC: (CPT 45380; principal; 2024-06-16 12:00)
DX: K52.9 Noninfective gastroenteritis and colitis, unspecified (principal); R15.2 Fecal urgency; R15.9 Full incontinence of feces; K63.5 Polyp of colon; K64.8 Other hemorrhoids; E11.8 Type 2 diabetes mellitus with unspecified complications; Z79.85 Long-term (current) use of injectable non-insulin antidiabetic drugs; Z79.4 Long term (current) use of insulin; Z79.84 Long term (current) use of oral hypoglycemic drugs
CPT/HCPCS: 45380; 45385; 82962; 88305; J7120

== ENCOUNTER 2024-08-11 10:30 | Outpatient (CLI) | payer MEDICARE, MEDICAID, SELFPAY ==
[2024-08-11 17:54] LABS: Basophils % 0.5 % (0.1-2.0); Hemoglobin 11.8 g/dL (12.2-16.2); Lymphocytes # 0.6 K/mm3 (0.7-4.5); Lymphocytes % 27.3 % (10-50); Mean Corpuscular HGB Conc 31.9 g/dL (31.8-35.4); Mean Corpuscular Hemoglobin 31.2 pg (27.0-31.2); Mean Corpuscular Volume 97.9 fl (81-99); Monocytes # 0.2 K/mm3 (0.1-1.0); Monocytes % 7.2 % (1.7-9.3); Neutrophils # 1.4 K/mm3 (1.8-7.8); Platelet Count 61 K/mm3 (142-424); Red Blood Count 3.78 M/mm3 (4.20-5.40); Red Cell Distribution Width 15.9 % (11.5-17.5); White Blood Count 2.1 K/mm3 (4.8-10.8)
[2024-08-11 18:23] LABS: Creatinine,Urine Random 201 mg/dL (Not Estab.)
[2024-08-11 18:28] LABS: Hemoglobin A1C 5.3 % (4.0-6.0)
[2024-08-11 18:51] LABS: Alanine Aminotransferase 33 U/L (12-78); Albumin Level 3.3 g/dl (3.5-5.0); Alkaline Phosphatase 143 U/L (38-126); Anion Gap 10.3 mEq/L (5-15); Aspartate Amino Transferase 70 U/L (14-36); Bilirubin,Total 1.7 mg/dl (0.2-1.3); Blood Urea Nitrogen 14 mg/dl (7-17); Calcium 9.3 mg/dl (8.4-10.2); Carbon Dioxide 26 mmol/L (22.0-30.0); Chloride 110 mmol/L (98-107); Cholesterol 128 mg/dl (140-200); Estimated Glomerular Filt Rate 63 ml/min (>60); GFR (African American) 77 ML/MIN (>60); Globulin 3.2 g/dL (1.3-3.2); Glucose 146 mg/dl (74-100); HDL Cholesterol 42 mg/dl (40-60); Potassium 4.3 mmoL/L (3.5-5.1); Sodium 142 mmol/L (136-145); Total Protein,Serum 6.5 g/dl (6.3-8.2); Triglycerides 91 mg/dl (30-150); VLDL Cholesterol 18 mg/dL (0-40)
[2024-08-11 19:07] LABS: Microalbumin/Creatinine Ratio 430.8
[2024-08-11 19:16] LABS: 25-OH Vitamin D, Total 49.5 ng/mL (30-100)
[2024-08-11 19:28] LABS: Thyroid Stimulating Hormone 0.43 uIU/mL (0.465-4.68)
== END 2024-08-11 23:59 | disposition home or self-care (01) ==
LOC: LAB.DROPOF 08-12 10:30
PROVIDERS: PCP Internal Medicine; Visit Provider Internal Medicine
DX: E87.5 Hyperkalemia (principal); R79.89 Other specified abnormal findings of blood chemistry; D72.819 Decreased white blood cell count, unspecified; E78.5 Hyperlipidemia, unspecified; E11.69 Type 2 diabetes mellitus with other specified complication; Z79.4 Long term (current) use of insulin; Z79.84 Long term (current) use of oral hypoglycemic drugs; N18.32 Chronic kidney disease, stage 3b; E11.22 Type 2 diabetes mellitus with diabetic chronic kidney disease; Z68.31 Body mass index [BMI] 31.0-31.9, adult; E66.9 Obesity, unspecified
CPT/HCPCS: 80053; 80061; 82043; 82306; 82570; 83036; 84443; 85025

== ENCOUNTER 2024-08-24 10:13 | Outpatient (CLI) | payer MEDICARE, MEDICAID, SELFPAY ==
[2024-08-24 17:50] LABS: Coronavirus 19, PCR Not Detected (NotDetected); Influenza A, PCR Not Detected (NotDetected); Influenza B, PCR Not Detected (NotDetected)
== END 2024-08-24 23:59 | disposition home or self-care (01) ==
LOC: LAB.DROPOF 08-25 10:14
PROVIDERS: PCP Student in an Organized Health Care Education/Training Program; Visit Provider Student in an Organized Health Care Education/Training Program
DX: R05.9 Cough, unspecified (principal); J06.9 Acute upper respiratory infection, unspecified
CPT/HCPCS: 87636

== ENCOUNTER 2024-10-20 14:39 | Outpatient (CLI) | payer MEDICARE, MEDICAID, SELFPAY ==
[2024-10-20 18:48] LABS: Basophils % 0.3 % (0.1-2.0); Eosinophils % 0.3 % (0.1-12.0); Hematocrit 38.6 % (37.0-47.0); Hemoglobin 12.3 g/dL (12.2-16.2); Lymphocytes # 0.8 K/mm3 (0.7-4.5); Lymphocytes % 24.3 % (10-50); Mean Corpuscular HGB Conc 31.9 g/dL (31.8-35.4); Mean Corpuscular Hemoglobin 31.1 pg (27.0-31.2); Mean Corpuscular Volume 97.7 fl (81-99); Mean Platelet Volume 11.1 fl (7.4-10.4); Monocytes # 0.3 K/mm3 (0.1-1.0); Monocytes % 8.3 % (1.7-9.3); Neutrophils # 2.2 K/mm3 (1.8-7.8); Neutrophils % 66.5 % (37.0-80.0); Platelet Count 94 K/mm3 (142-424); Red Blood Count 3.95 M/mm3 (4.20-5.40); Red Cell Distribution Width 14.8 % (11.5-17.5); White Blood Count 3.4 K/mm3 (4.8-10.8)
[2024-10-20 19:27] LABS: Hemoglobin A1C 5.1 % (4.0-6.0)
[2024-10-20 21:46] LABS: Iron 79 ug/dL (37-170)
[2024-10-20 21:57] LABS: Total Iron Binding Capacity 288 ug/dL (265-497)
== END 2024-10-20 23:59 | disposition home or self-care (01) ==
LOC: LAB.DROPOF 10-21 12:42
PROVIDERS: PCP Family Medicine; Visit Provider Family Medicine
DX: E10.65 Type 1 diabetes mellitus with hyperglycemia (principal); E78.2 Mixed hyperlipidemia
CPT/HCPCS: 83036; 83540; 83550; 85025

== ENCOUNTER 2024-10-26 10:58 | Outpatient (CLI) | payer MEDICARE, MEDICAID, SELFPAY ==
--- NOTE | 2024-10-26 11:00 | US_ITS ---
FINAL REPORT TECHNIQUE: Multiple transverse and longitudinal images CLINICAL HISTORY: abd pain -- ABD SWELLING COMPARISON: 06/06/2023 FINDINGS: The gallbladder has been surgically resected. No biliary ductal dilatation is appreciated. The liver has an appearance consistent with cirrhosis, seen on the prior exam. There is moderate perihepatic ascites, which is new since 2022. Limited portions of the right kidney are unremarkable. IMPRESSION: Cirrhotic liver with moderate perihepatic ascites, new since the prior exam of 06/06/2023. Reviewed, Interpreted and Dictated by Brad Chaney MD Transcribed by Tabitha Kincaid Authenticated and [facility]
== END 2024-10-26 23:59 | disposition home or self-care (01) ==
LOC: RAD 10:59
PROVIDERS: PCP Family Medicine; Visit Provider Family Medicine
DX: R19.8 Other specified symptoms and signs involving the digestive system and abdomen (principal); K74.60 Unspecified cirrhosis of liver; R18.8 Other ascites
CPT/HCPCS: 76705

== ENCOUNTER 2024-10-28 14:42 | Outpatient (CLI) | payer MEDICARE, MEDICAID, SELFPAY ==
--- NOTE | 2024-10-28 15:00 | MM_ITS ---
PROCEDURE INFORMATION: Exam: MG Bilateral Screening 3D Mammography Exam date and time: 10/28/2024 2:59 PM Age: 64 years old Clinical indication: Screening TECHNIQUE: Imaging protocol: Bilateral Screening tomosynthesis and 2D mammography including computer-aided detection (CAD) when performed. COMPARISON: 1. MG MM DIG MAMM DX UNILAT LT CAD 12/26/2021 1:13 PM 2. MG MM CLIP PLACEMENT RT 07/12/2021 10:38 AM FINDINGS: MAMMOGRAPHY: Breast composition: There are scattered areas of fibroglandular density. Mass: None. Architectural distortion: None. Calcifications: No suspicious calcifications. Asymmetric density: None. Skin thickening: None. Axillary adenopathy: None. IMPRESSION: No mammographic evidence of malignancy. Annual screening is recommended unless otherwise clinically indicated. ASSESSMENT: BI-RADS Category 1: Negative.
== END 2024-10-28 23:59 | disposition home or self-care (01) ==
LOC: RAD 14:42
PROVIDERS: PCP Family Medicine; Visit Provider Family Medicine
DX: Z12.31 Encounter for screening mammogram for malignant neoplasm of breast (principal)
CPT/HCPCS: 77063; 77067

== ENCOUNTER 2024-11-29 20:05 | Emergency (ER) | payer MEDICARE, MEDICAID, SELFPAY ==
[2024-11-29] VITALS (9 sets, daily range): BP systolic 125–171; BP diastolic 64–85; PULSE 31–102; RESP 10–20; TEMP 36.8; O2SAT 95–99; BMI 32.8
--- OUTSIDE RECORDS SUMMARY | 2024-11-29 20:21 | XMS_ITS ---
Author Organization Unknown TREATMENT PLAN Planned [facility] Start Date Provider Encounter for Check-up [id number] [facility]
--- OUTSIDE RECORDS SUMMARY | 2024-11-29 20:21 | XMS_ITS | Data Portability ---
Author Organization [place] - [facility] - [place] [facility] ADMIN Address [address] [place] [address] Care Team Providers Care Facilities Maintenance Worker Name Role Phone SARI MIX Primary Care Provider [phone] Assessment Encounter Date Assessment Date Assessment LastModified by Organization Details LastModified Time 05/14/2023 05/14/2023 63-year-old femsavanah bustamante with: 1) Hepatic fibrosis: Liver biopsy on 07/31/2021: Grade 2, stage 3. Many variables noted on pathology report. Appeared to favor steatohepatitis but also with presence of Faith's hyalin, pericellular fibrosis, and increased plasma cells. Lab workup showed a positive JEANA with reflex positive anticentromere B antibody. -I referred her to [facility] for further evaluation, but she did not keep the appointment. She has been lost to f/u since that time. -Obtain labs per below. -Acute hepatitis panel was negative January 2021. -Lab workup with no specific etiology identified. GIORDANO fibrosure could not be performed due to unusually high or low biochemical analyte. Will repeat now. Recommended she implement diet and exercise to achieve weight loss. -She is immune to hepatitis A. Previously not immune to hepatiits B, received a single dose of the hepatitis B vaccine September 2021. Will check her surface AB, plan to administer a titer at next OV if non-immune. -AFP WNL. Will repeat AFP and US liver now and q6 months for HCC screening. -HE - Start Xifaxan 550 mg p.o. BID. She previously did not tolerate lactulose. -No ascites or BLE edema on exam. 2 g daily sodium restriction recommended. - EV: Schedule EGD for screening of esophageal varices. 2) History of colonoscopy: Colonoscopy performed 01/[address] [facility] with polypectomy (TA). 1 year repeat was recommended but she states she did not follow-up. She has a history of anal soft tissue thickening that was previously being followed by Dr. Quiñonez. 3) Nausea/abdominal pain: Continue Zofran as needed. EGD/colonoscopy scheduled. [email or web address] Not available 05/14/2023 16:14:25 Plan of Treatment Reminders Order Date Submit Date Provider Last Modified By Organization Details Last Modified Time Details Appointments None recorded. Lab CBC 2022 023 [facility]BE [facility], [address], [address], [place], [address], 3 07:14:09 CMP, serum or plasma 2022 023 A[facility], [address], [address], [place], [address], 3 07:14:08 PT/INR 2022 023 [facility], [address], [address], [place], [address], 3 07:14:10 afp (alpha-feto protein) tumor marker, serum or plasma 2022 023 A[facility], [address], [address], [place], [address], 3 07:14:12 JEANA (antinuclea r antibodies) screen, serum 2022 023 A[facility], [address], [address], [place], [address], 3 07:14:14 mitochondri al Ab, serum 2022 023 [email or web address] [facility], [address], [address], [place], [address], 3 08:37:53 smooth muscle Ab, serum 2022 023 A[facility], [address], [address], [place], [address], 3 07:14:11 igg, quantitativ e, serum 2022 023 A[facility], [address], [address], [place], [address], 3 07:14:15 hepatitis B surface Ab, quantitativ e, serum 2022 023 A[facility], [address], [address], [place], [address], 3 07:14:13 Referral None recorded. Procedures None recorded. Surgeries None recorded. [email or web address] [address], [place], [address], 15:31:08 Medication Orders Xifaxan 550 mg tablet 2022 023 [email or web address] [facility], [address] [facility] [address], [place], [place], [id number], 16:07:45 Patient TargetsNo targets recorded. Patient InstructionsNo instructions recorded. Reason for Referral None Reported. Results Created Date Observation Date Name Description Value Unit Range Abnormal Flag Note LastModifiedBy Organization Detail LastModifiedTime 05/14/2005/15/2023 COMP. METAB OLIC PANEL (14) glucose 292 mg/dL 70-99 above high normal Not Available [facility] ([facility]) [address] [facility] [address], [place], [address], 05/16/2023 07:14:08 05/14/2005/15/2023 COMP. METAB OLIC PANEL (14) BUN 39 mg/dL 8-27 above high normal Not Available [facility] ([facility]) [address] [facility] [place], [address], 05/16/2023 07:14:08 05/14/20 23 05/15/2023 COMP. METAB OLIC PANEL (14) creatinine 1.73 mg/dL 0.57-1 .00 above high normal Not Available [facility] ([facility]) [address] [facility] [place], [address], 05/16/2023 07:14:08 05/14/20 23 05/15/2023 COMP. METAB OLIC PANEL (14) eGFR 33 mL/mi n/1.7 3 >59 below low normal Not Available [facility] ([facility]) [address] [facility] [place], [address], 05/16/2023 07:14:08 05/14/20 23 05/15/2023 COMP. METAB OLIC PANEL (14) BUN/creatini ne ratio 23 12-28 Not Available [facility] ([facility]) [address] [facility] [place], [address], 05/16/2023 07:14:08 05/14/2005/15/2023 COMP. METAB OLIC PANEL (14) sodium 143 mmol/ L 134-14 4 Not Available [facility] ([facility]) [address] [facility] [place], [address], 05/16/2023 07:14:08 05/14/20 23 05/15/2023 COMP. METAB OLIC PANEL (14) potassium 4.8 mmol/ L 3.5-5. 2 Not Available [facility] ([facility]) [address] [facility] [place], [address], 05/16/2023 07:14:08 05/14/20 23 05/15/2023 COMP. METAB OLIC PANEL (14) chloride 103 mmol/ L 96-106 Not Available [facility] ([facility]) [address] [facility] [place], [address], 05/16/2023 07:14:08 05/14/20 23 05/15/2023 COMP. METAB OLIC PANEL (14) carbon dioxide, total 28 mmol/ L 20-29 Not Available [facility] ([facility]) [address] [facility] [address], [place], [address], 05/16/2023 07:14:08 05/14/20 23 05/15/2023 COMP. METAB OLIC PANEL (14) calcium 9.2 mg/dL 8.7-10 .3 Not Available [facility] ([facility]) [address] [facility] [address], [place], [address], 05/16/2023 07:14:08 05/14/20 23 05/15/2023 COMP. METAB OLIC PANEL (14) protein, total 7.4 g/dL 6.0-8. 5 Not Available [facility] ([facility]) [address] [facility] [address], [place], [address], 05/16/2023 07:14:08 05/14/20 23 05/15/2023 COMP. METAB OLIC PANEL (14) albumin 4.1 g/dL 3.9-4. 9 Not Available [facility] ([facility]) [address] [facility] [address], [place], [address], 05/16/2023 07:14:08 05/14/20 23 05/15/2023 COMP. METAB OLIC PANEL (14) globulin, total 3.3 g/dL 1.5-4. 5 Not Available [facility] ([facility]) [address] [facility] [address], [place], [address], 05/16/2023 07:14:08 05/14/20 23 05/15/2023 COMP. METAB OLIC PANEL (14) A/G ratio 1.2 1.2-2. 2 Not Available [facility] ([facility]) [address] [facility] [address], [place], [address], 05/16/2023 07:14:08 05/14/20 23 05/15/2023 COMP. METAB OLIC PANEL (14) bilirubin, total 0.7 mg/dL 0.0-1. 2 Not Available [facility] ([facility]) [address] [facility] [address], [place], [address], 05/16/2023 07:14:08 05/14/20 23 05/15/2023 COMP. METAB OLIC PANEL (14) alkaline phosphatase 144 IU/L 44-121 above high normal Not Available [facility] ([facility]) [address] [facility] [address], [place], [address], 05/16/2023 07:14:08 05/14/2005/15/2023 COMP. METAB OLIC PANEL (14) AST (SGOT) 39 IU/L 0-40 Not Available [facility] ([facility]) [address] [facility] [address], [place], [address], 05/16/2023 07:14:08 05/14/2005/15/2023 COMP. METAB OLIC PANEL (14) ALT (SGPT) 27 IU/L 0-32 Not Available [facility] ([facility]) [address] [facility] [address], [place], [address], 05/16/2023 07:14:08 05/14/2005/15/2023 CBC, PLATE LET, NO DIFFE RENTI AL WBC 3.8 x10e3 /uL 3.4-10 .8 Not Available [facility] ([facility]) [address] [facility] [address], [place], [address], 05/16/2023 07:14:09 05/14/2005/15/2023 CBC, PLATE LET, NO DIFFE RENTI AL RBC 3.98 x10e6 /uL 3.77-5 .28 Not Available [facility] ([facility]) [address] [facility] [address], [place], [address], 05/16/2023 07:14:09 05/14/2005/15/2023 CBC, PLATE LET, NO DIFFE RENTI AL hemoglobin 12.9 g/dL 11.1-1 5.9 Not Available [facility] ([facility]) [address] [facility] [address], [place], [address], 05/16/2023 07:14:09 05/14/2005/15/2023 CBC, PLATE LET, NO DIFFE RENTI AL hematocrit 39.7 % 34.0-4 6.6 Not Available [facility] ([facility]) [address] [facility] [address], [place], [address], 05/16/2023 07:14:09 05/14/2005/15/2023 CBC, PLATE LET, NO DIFFE RENTI AL MCV 100 fL 79-97 above high normal Not Available [facility] ([facility]) [address] [facility] [address], [place], [address], 05/16/2023 07:14:09 05/14/2005/15/2023 CBC, PLATE LET, NO DIFFE RENTI AL MCH 32.4 pg 26.6-3 3.0 Not Available [facility] ([facility]) [address] [facility] [address], [place], [address], 05/16/2023 07:14:09 05/14/2005/15/2023 CBC, PLATE LET, NO DIFFE RENTI AL MCHC 32.5 g/dL 31.5-3 5.7 Not Available [facility] ([facility]) [address] [place], [address], 05/16/2023 07:14:09 05/14/2005/15/2023 CBC, PLATE LET, NO DIFFE RENTI AL RDW 14.1 % 11.7-1 5.4 Not Available [facility] ([facility]) [address] [facility] [address], [place], [address], 05/16/2023 07:14:09 05/14/2005/15/2023 CBC, PLATE LET, NO DIFFE RENTI AL platelets 81 x10e3 /uL 150-45 0 alert low Plate let count verif ied by exami natio n of perip heral blood smear . Not Available [facility] ([facility]) [address] [facility] [address], [place], [address], 05/16/2023 07:14:09 05/14/2005/15/2023 CBC, PLATE LET, NO DIFFE RENTI AL hematology comments: NOTE: Verif ied by micro scopi c exami natio n. Not Available [facility] ([facility]) [address] [facility] [address], [place], [address], 05/16/2023 07:14:09 05/14/2005/15/2023 CBC, PLATE LET, NO DIFFE RENTI AL NRBC TALENT SCOUT Not Available [facility] ([facility]) [address] [facility] [address], [place], [address], 05/16/2023 07:14:09 05/14/2005/15/2023 PROTH ROMBI N TIME (PT), SERIA L INR 1.1 0.9-1. 2 Refer ence inter rimma is for non-a ntico agula sharla patie nts. Sugge sted INR thera peuti c range for Vitam in K antag onist thera py: Stand lindsay Dose (mode rate inten sity thera peuti c range ): 2.0 - 3.0 Highe r inten sity thera peuti c range 2.5 - 3.5 Not Available [facility] ([facility]) [address] [facility] [address], [place], [address], 05/16/2023 07:14:10 05/14/2005/15/2023 PROTH ROMBI N TIME (PT), SERIA L prothrombin time 11.9 sec 9.1-12 .0 Not Available [facility] ([facility]) [address] [facility] [address], [place], [address], 05/16/2023 07:14:10 05/14/2005/15/2023 PROTH ROMBI N TIME (PT), SERIA L pdf . Not Available [facility] ([facility]) [address] [place], [address], 05/16/2023 07:14:10 05/14/2005/15/2023 ANTI- AIXA H MUSCL E/TAHIR [place] D. actin (smooth muscle) antibody 7 units 0-19 Negat marnie 0 - 19 Weak posit marnie 20 - 30 Moder ate to stron g posit marnie >30 Actin Antib odies are found in 52-85 % of patie nts with autoi mmune hepat itis or chron ic activ e hepat itis and in 22% of patie nts with prima ry bilia ry cirrh osis. Not Available [facility] ([facility]) [address] [place], [address], 05/16/2023 07:14:11 05/14/2005/15/2023 ANTI- AIXA H MUSCL E/TAHIR [place] D. mitochondria l (M2) antibody <20.0 units 0.0-20 .0 Negat marnie 0.0 - 20.0 Equiv ocal 20.1 - 24.9 Posit marnie >24.9 Mitoc hondr ial (M2) Antib odies are found in 90-96 % of patie nts with prima ry bilia ry cirrh osis. Not Available [facility] ([facility]) [address] [place], [address], 05/16/2023 07:14:11 05/14/2005/15/2023 AFP, SERUM , TUMOR MARKE R AFP, serum, tumor marker 3.0 NG/mL 0.0-9. 2 Jeimy Diagn ostic s Elect jeimy milum inesc ence Immun oassa y (ECLI A) Value s obtai esa with diffe rent assay metho ds or kits canno t be used inter starks eaanay . Resul ts canno t be inter prete d as absol nicky evide nce of the prese nce or absen ce of claudette venegas se. This test is not inter preta ble in pregn ant femal es. Not Available [facility] ([facility]) [address] [place], [address], 05/16/2023 07:14:12 05/14/2005/15/2023 HEPAT ITIS B SURF AB QUANT hepatitis B surf Ab quant <3.1 mIU/m L immuni ty>9.9 below low normal Statu s of Immun ity Anti- HBs Level ----- ----- ----- --- ----- ----- ---- Incon siste nt with Immun ity 0.0 - 9.9 Consi stent with Immun ity >9.9 Not Available [facility] ([facility]) [address] [place], [address], 05/16/2023 07:14:13 05/14/2005/15/2023 JEANA W/REF KISHOR IF POSIT MARNIE JEANA direct POSITI VE negati ve abnormal Not Available [facility] ([facility]) [address] [place], [address], 05/16/2023 07:14:14 05/14/2005/15/2023 JEANA W/REF KISHOR IF POSIT MARNIE anti-DNA (ds) Ab qn <1 IU/mL 0-9 Negat marnie <5 Equiv ocal 5 - 9 Posit marnie >9 Not Available [facility] ([facility]) [address] [place], [address], 05/16/2023 07:14:14 05/14/2005/15/2023 JEANA W/REF KISHOR IF POSIT MARNIE mill crane operator antibodies <0.2 ai 0.0-0. 9 Not Available [facility] ([facility]) [address] [place], [address], 05/16/2023 07:14:14 05/14/2005/15/2023 JEANA W/REF KISHOR IF POSIT MARNIE perez antibodies <0.2 ai 0.0-0. 9 Not Available [facility] ([facility]) [address] [place], [address], 05/16/2023 07:14:14 05/14/2005/15/2023 JEANA W/REF KISHOR IF POSIT MARNIE antisclerode rma-70 antibodies 0.3 ai 0.0-0. 9 Not Available [facility] ([facility]) [address] [place], [address], 05/16/2023 07:14:14 05/14/2005/15/2023 JEANA W/REF KISHOR IF POSIT MARNIE sjogren's anti-ss-A <0.2 ai 0.0-0. 9 Not Available [facility] ([facility]) [address] [place], [address], 05/16/2023 07:14:14 05/14/2005/15/2023 JEANA W/REF KISHOR IF POSIT MARNIE sjogren's anti-ss-B <0.2 ai 0.0-0. 9 Not Available [facility] ([facility]) [address] [place], [address], 05/16/2023 07:14:14 05/14/2005/15/2023 JEANA W/REF KISHOR IF POSIT MARNIE antichromati n antibodies <0.2 ai 0.0-0. 9 Not Available [facility] ([facility]) [address] [place], [address], 05/16/2023 07:14:14 05/14/2005/15/2023 JEANA W/REF KISHOR IF POSIT MARNIE anti-trisha-1 <0.2 ai 0.0-0. 9 Not Available [facility] ([facility]) [address] [place], [address], 05/16/2023 07:14:14 05/14/2005/15/2023 JEANA W/REF KISHOR IF POSIT MARNIE anti-centrom ere B antibodies 2.7 ai 0.0-0. 9 above high normal Not Available [facility] ([facility]) [address] [facility] [address], [place], [address], 05/16/2023 07:14:14 05/14/2005/16/2023 JEANA W/REF KISHOR IF POSIT MARNIE complement C3, serum 109 mg/dL 82-167 Not Available [facility] ([facility]) [address] [facility] [address], [place], [address], 05/16/2023 07:14:14 05/14/2005/16/2023 JEANA W/REF KISHOR IF POSIT MARNIE complement C4, serum 20 mg/dL 12-38 Not Available [facility] ([facility]) [address] [facility] [address], [place], [address], 05/16/2023 07:14:14 05/14/2005/15/2023 IMMUN OGLOB ULIN G, QN, SERUM immunoglobul in g, qn, serum 1562 mg/dL 586-16 02 Not Available [facility] ([facility]) [address] [facility] [address], [place], [address], 05/16/2023 07:14:15 06/06/2006/06/2023 US, liver No observ ation record ed. [facility] [address], [place], [address], 06/13/2023 12:55:07 Result Notes None recorded. Problems Name Problem SNOMED Code Status Onset Date Resolution Date Notes Provider Name and Address Organization Details Recorded Time Stage 3 hepatic fibrosis 5468667343826 9109 Active 2022 Raul Kincaid PA-C [address], [place], [address] , [facility] [place] 04/13/202 3 08:26:45 Anticentro mere antibody pattern 185641529 Active 2022 Raul Kincaid PA-C [address], [place], [address] , [facility] [place] 3 08:27:15 Metabolic dysfunctio n-associat ed steatohepa titis 019498923 Active 2022 Raul Kincaid PA-C [address], [place], [address] , [facility] [place] 3 08:28:41 Hepatic encephalop athy 97055367 Active 2022 Raul Kincaid PA-C [address], [place], [address] , [facility] [place] 3 10:58:50 Anti-nucle ar factor detected 724945080 Active 2022 Raul Kincaid PA-C [address] , [place], [address] , [facility] [place] 3 16:09:02 Problem Notes None recorded. Procedures Surgical History None recorded. Imaging Results Imaging Date Name Status LastModified by Organiz ation Details LastModified Time 06/06/2023 US, liver completed [facility] [address], [place], [address], 06/13/2023 12:55:07 Procedure Notes None recorded. Medical Equipment None Reported. Allergies No known drug allergies Medications Name Sig Start Date Stop Date Status Note LastModified by Organization Details LastModified Time Miralax 17 gram oral powder packet Take 5 packets 3 times a day by oral route as directed for 1 day. 2022 active Not Available Not Available Not Avai lable cyclobenzap rine 10 mg tablet 05/28 completed Not Available Not Available Not Available furosemide 40 mg tablet 1 tablet daily as needed for swelling active Not Available Not Available No t Available gabapentin 600 mg tablet TAKE 1 TABLET BY MOUTH THREE TIMES DAILY FOR PAIN active Not Available Not Available No t Available doxycycline hyclate 100 mg capsule active Not Available Not Available N ot Available atorvastati n 20 mg tablet active Not Available Not Available Not Available clindamycin HCl 300 mg capsule 05/28 completed Not Available Not Available Not Available atorvastati n 10 mg tablet active Not Available Not Available Not Available Glucagon Emergency Kit 1 mg solution for injection active Not Available Not Available No t Available hydrocodone 5 mg-acetamin ophen 325 mg tablet TAKE 1 TABLET BY MOUTH THREE TIMES DAILY FOR PAIN 09/03 completed Not Available Not Available Not Available minocycline 100 mg capsule 1 table 05/28 completed Not Available Not Available Not Available meloxicam 15 mg tablet active Not Available Not Available Not Available verapamil ER (SR) 180 mg tablet,exte nded release TAKE 1 TABLET BY MOUTH DAILY 09/03 completed Not Available Not Available Not Available hydroxyzine pamoate 50 mg capsule TAKE 1 CAPSULE BY MOUTH AT BEDTIME NEEDED FOR SLEEP active Not Available Not Available No t Available clopidogrel 75 mg tablet TAKE 1 TABLET BY MOUTH ONCE DAILY FOR PLATELET INHIBITOR active Not Available Not Available No t Available ciprofloxac in 500 mg tablet active Not Available Not Available Not Available sulfamethox azole 800 mg-trimetho prim 160 mg tablet active Not Available Not Available Not Available hydrocodone 10 mg-acetamin ophen 325 mg tablet 1 tablet four times per day prn active Not Available Not Available No t Available aspirin 81 mg tablet,akua yed release 1 tablet every day active Not Available Not Available No t Available spironolact one 25 mg tablet 1 tablet every day active Not Available Not Available No t Available bisoprolol fumarate 10 mg tablet TAKE 1 TABLET BY MOUTH TWICE DAILY FOR BLOOD PRESSURE active Not Available Not Available No t Available isosorbide mononitrate ER 60 mg tablet,exte nded release 24 hr TAKE 1 AND 1/2 TABLETS BY MOUTH DAILY FOR BLOOD PRESSURE active Not Available Not Available No t Available amoxicillin 875 mg tablet active Not Available Not Available Not Available potassium chloride ER 20 mEq tablet,exte nded release(par t/cryst) 1 Tablet daily active Not Available Not Available No t Available gabapentin 800 mg tablet active Not Available Not Available Not Available OneTouch Ultra Test strips active Not Available Not Available Not Available benzonatate 100 mg capsule active Not Available Not Available Not Available hydrocodone 7.5 mg-acetamin ophen 325 mg tablet TAKE 1 TABLET BY MOUTH THREE TIMES DAILY 09/03 completed Not Available Not Available Not Available cephalexin 500 mg capsule Take 1 capsule twice a day by oral route for 10 days. 09/03 completed Not Available Not Available Not Available metformin 1,000 mg tablet active Not Available Not Available Not Available lisinopril 10 mg tablet TAKE 1 TABLET BY MOUTH ONCE DAILY FOR HIGH BLOOD PRESSURE active Not Available Not Available No t Available gentamicin 0.1 % topical cream active Not Available Not Available Not Available mupirocin 2 % topical ointment prn active Not Available Not Available Not Available Novolog U-100 Insulin aspart 100 unit/mL subcutaneou s solution active Not Available Not Available N ot Available polyethylen e glycol 3350 17 gram/dose oral powder active Not Available Not Available Not Available methylpredn isolone 4 mg tablets in a dose pack 05/28 completed Not Available Not Available Not Available ondansetron 4 mg disintegrat ing tablet DISSOLVE 1 TABLET ON THE TONGUE EVERY 8 HOURS NEEDED FOR NAUSEA active Not Available Not Available No t Available metformin ER 500 mg tablet,exte nded release 24 hr 2 tablets by mouth twice daily active Not Available Not Available No t Available doxycycline hyclate 100 mg tablet TAKE 1 TABLET BY MOUTH TWICE DAILY FOR 7 DAYS active Not Available Not Available No t Available amoxicillin 875 mg-potassiu m clavulanate 125 mg tablet active Not Available Not Available Not Available hydroxyzine pamoate 25 mg capsule 05/28 completed Not Available Not Available Not Available Novolog Mix 70-30 FlexPen U-100 Insulin 100 unit/mL subcutaneou s pen ADMINISTE R 63 UNITS UNDER THE SKIN THREE TIMES DAILY FOR DIABETES active Not Available Not Available No t Available insulin aspar prt-insulin aspart 100 unit/mL (70-30) subcutaneou s soln ADMINISTE R 63 UNITS UNDER THE SKIN THREE TIMES DAILY active Not Available Not Available No t Available BD Ultra-Fine Mini Pen Needle 31 gauge x 3/16 USE DIRECTED active Not Available Not Available No t Available lactulose 10 gram/15 mL oral solution TAKE 15 ML BY MOUTH TWICE DAILY active Not Available Not Available No t Available Lantus Solostar U-100 Insulin 100 unit/mL (3 mL) subcutaneou s pen ADMINISTE R 20 UNITS UNDER THE SKIN DAILY active Not Available Not Available No t Available ranolazine ER 1,000 mg tablet,exte nded release,12 hr 1 tablet by mouth twice daily 09/03 completed Not Available Not Available Not Available Xifaxan 550 mg tablet Take by oral route for 30 days. active Not Available Not Available No t Available BD Insulin Syringe Ultra-Fine 1 mL 31 gauge x 5/16 USE WITH INJECTION S THREE TIMES DAILY active Not Available Not Available No t Available Farxiga 5 mg tablet active Not Available Not Available No t Available Trintellix 20 mg tablet TAKE 1 TABLET BY MOUTH DAILY FOR DEPRESSIO N active Not Available Not Available No t Available Fiasp U-100 Insulin 100 unit/mL subcutaneou s solution Inject 1 sliding scale dose by subcutane ous route as needed. active Not Available Not Available No t Available Ozempic 0.25 mg or 0.5 mg (2 mg/1.5 mL) subcutaneou s pen injector active Not Available Not Available Not Available OneTouch Delica Plus Lancet 33 gauge active Not Available Not Available Not Available OneTouch Delica Plus Lancet 30 gauge active Not Available Not Available Not Available Ozempic 1 mg/dose (4 mg/3 mL) subcutaneou s pen injector active Not Available Not Available Not Available Omnipod 5 G6 Pods (Gen 5) subcutaneou s cartridge change pod every 3 days based on sliding scale active Not Available Not Available No t Available Omnipod 5 G6 Intro Kit (Gen 5) subcutaneou s cartridge with controller change pod every 72 hours based on sliding scale 2021 active Not Available Not Available Not Avai lable Ozempic 0.25 mg or 0.5 mg (2 mg/3 mL) subcutaneou s pen injector active Not Available Not Available Not Available Vitals Date Recorded Body weight Body temperature Body mass index (BMI) Body height Heart rate Heart rate Oxygen saturation Oxygen saturation in Arterial blood by Pulse oximetry Systolic blood pressure Diastolic blood pressure Provider Name and Address Organization Details Last Updated DateTime 3 05713.9 4 g 97.4 [degF] 32.6 kg/m2 167.64 cm 84 /min 91 /min 98 % 98 % 131 mm[Hg] 72 mm[Hg] Luz Maria Pike [facility] & [place] 3 10:32:47 Social History Question Answer Notes LastModified by Organizat ion Details LastModified Time Tobacco Smoking Status Never Smoker Luz Mariabreann [facility], [place] - [facility] - [place] & [place] 05/14/2023 10:31:56 What Is Your Level Of Alcohol Consumption? Occasional [email or web address] Information not available 05/14/2023 What Is Your Level Of Caffeine Consumption? Moderate [email or web address] Information not available 05/14/2023 Do You Use Any Illicit Or Recreational Drugs? No [email or web address] Information not available 05/14/2023 Do You Or Have You Ever Used Any Other Forms Of Tobacco Or Nicotine? No Information not available 05/14/2023 Sex: Unknown Functional Status None recorded. Mental Status None recorded. Family History Relationship Description Onset Age of this Age Resolved Age Notes LastModified by Organization Details LastModified Time Mother Disorder of endocrine system pt. added direct ly (07/14) [email or web address] Not available 07/14/2022 12:50:45 Sister Disorder of endocrine system pt. added direct ly (07/14) [email or web address] Not available 07/14/2022 12:50:45 Medical History No medical history recorded. Gynecological HistoryNo gynecological history recorded. Obstetrics History GPAL:G 0 P 0 0 0 0 Past Encounters Encounter ID Performer Location Encounter Start Date Encounter Closed Date Diagnosis/Indication Diagnosis SNOMED-CT Code Diagnosis ICD10 Code Diagnosis Note [id number] Raul Kincaid PA-C [facility] [address] [address] 05/14/2023 10:00:22 05/14/2023 11:33:43 Stage 3 hepatic fibrosis 8005895886 2902979 K74.02 Hepatic encephalopathy 70681218 K76.82 History of polyp of colon 994981692 Z86.010 Anti-nucle ar factor detected 117724659 R76.8 Anticentro mere antibody pattern 450507206 R76.8 Health Concerns Section Related Observation LastModified by Organization Detai ls LastModified Time None Recorded Concern Status LastModified by Organization Details LastModified Time None Recorded Advance Directives Directive None Recorded Payers Encounter Date Sequence Insurance Name Policy Number Policy Deng Covered Member ID Deng Member ID Guarantor Name 05/14/2023 1 [place] Mary Coronel [id number] Mary Coronel 05/14/2023 2 [facility] [place] (MEDICAID HMO) Mray Coronel [id number] Mary Coronel Notes Date Note Type Note Provider Name and Address Organization Details Recorded Time 05/14/2023 text/html PREVIOUS (09/27/21 ): Ms. Coronel returns to the office today regarding f/u of recent liver biopsy. This showed many variables, including minimal steatosis, Faith's hyalin, pericellular fibrosis, increased plasma cells, and florid ductular process. JEANA is positive with positive anticentromere B antibody, which raises concern over a superimposed autoimmune hepatitis or primary biliary cholangitis. Her alkaline phosphatase and LFTs have been mildly elevated. She complains of recent onset bilious vomiting. Promethazine has provided some relief. She has continued lactulose for questionable hepatic encephalopathy. She feels her mentation has been fine. CURRENT (05/14/23): Ms. Coronel is a 63-year-old female with history of stage 3 idiopathic hepatic fibrosis who presents to the office today to re-establish care. She has been lost to follow-up for nearly 18 months. I previously referred her to [facility] due to many abnormal variables that were seen on her liver biopsy and positive JEANA. She also had evidence of fatty liver disease. She has a history of questionable hepatic encephalopathy. Currently, she complains of intermittent confusion and memory issues. She also is experiencing frequent nausea and abdominal discomfort. She was previously following with Dr. Quiñonez for her surveillance colonoscopies, but she did not keep her last appointment for colonoscopy. Raul Kincaid PA-C [address], [place], [address], [place] - [facility] - [place] & [place] 05/14/2023 16:14:59 OBGyn Episode No OBEpisode recorded.
--- NOTE | 2024-11-29 20:25 | ECG_ITS ---
APPROVED REPORT Exam: Resting ECG HR:100 bpm ECG Measurements Heart Rate 100 AXES TX 147 P 51 QRSd 94 QRS -4 QT 370 T 28 QTc 427 Conclusion Sinus tachycardia Q waves with no acute ischemic change Electronically signed by : RAOUL GALICIA, 11/30/2024 23:09:12
--- NOTE | 2024-11-29 20:30 | PC.NURSE ---
FSBG 92MG/DL AT BEDSIDE @ 2030
--- NOTE | 2024-11-29 20:41 | PC.NURSE ---
respiratory contacted regarding the need for VBG that has been sent to the lab.
[2024-11-29 20:45] LABS: Lactate Venous 2.1 mmol/L (0.4-2.0); VBG Base Excess -5.8 mmol/L (-2.4-2.3); VBG HCO3 21.3 mmol/L (23-30); VBG Oxygen Saturation 75.8 % (50-70); VBG PH 7.26 mmol/L (7.31-7.41); VBG PO2 44.4 mmol/L (28-40); VBG Total CO2 22.7 mmol/L (23-27)
[2024-11-29 20:45] LABS: Basophils % 0.5 % (0.1-2.0); Hematocrit 27.1 % (37.0-47.0); Hemoglobin 8.6 g/dL (12.2-16.2); Lymphocytes # 0.5 K/mm3 (0.7-4.5); Lymphocytes % 24.2 % (10-50); Mean Corpuscular HGB Conc 31.7 g/dL (31.8-35.4); Mean Corpuscular Hemoglobin 31.3 pg (27.0-31.2); Mean Corpuscular Volume 98.5 fl (81-99); Mean Platelet Volume 10.3 fl (7.4-10.4); Monocytes # 0.2 K/mm3 (0.1-1.0); Monocytes % 11.6 % (1.7-9.3); Neutrophils # 1.3 K/mm3 (1.8-7.8); Neutrophils % 63.2 % (37.0-80.0); Nucleated Red Blood Cells # 0 10^3/uL; Nucleated Red Blood Cells % 0 %; Platelet Count 82 K/mm3 (142-424); Red Blood Count 2.75 M/mm3 (4.20-5.40); Red Cell Distribution Width 15.9 % (11.5-17.5); Red Cell Distribution Width-SD 56.7 fL; White Blood Count 2.1 K/mm3 (4.8-10.8)
[2024-11-29 20:52] LABS: MANUAL DIFFERENTIAL MANUAL DIFFERENTIAL (MANUAL DIFF)
[2024-11-29 20:55] LABS: INR 1.14 (0.9-1.1); Prothrombin Time 12.6 seconds (10.1-12.5)
[2024-11-29 20:59] LABS: Albumin Level 2.9 g/dl (3.5-5.0); Chloride 114 mmol/L (98-107); Potassium 4.6 mmoL/L (3.5-5.1); Sodium 143 mmol/L (136-145)
[2024-11-29 21:00] LABS: Activated Partial Thrombo Time 27.7 seconds (22.8-30.6)
--- NOTE | 2024-11-29 21:00 | ED_ITS ---
Discharge Plan Disposition Patient Disposition: Xfer Short-Term Hosp Chief Complaint: Abdominal Pain Prescriptions Prescriptions: No Action (DME) Omnipod 5 G6 Pods (Gen 5) Cartridge See Rx Instructions .ROUTE .MEDSUPPLY Qty: 5 Rx Instructions: As directed colestipol [Colestid] 1 gram tablet 1 g PO .Nightly MDD 2 tablets p.o. nightly 30 Days Qty: 60 12RF Rx Instructions: 2 tablets p.o. nightly ammonium lactate 12 % cream 1 applic topical BID Qty: 385 1RF Mounjaro 7.5 mg/0.5 mL pen injector 7.5 mg SQ WEEKLY Qty: 2.5 2RF albuterol sulfate 90 mcg/actuation HFA aerosol inhaler 1 inh inhalation QID Qty: 6.7 0RF triamcinolone acetonide [Triderm] 0.1 % cream 0.1 applic topical DAILY (DME) blood-glucose meter [[email or web address] Ultra2 Meter] Misc See Rx Instructions .ROUTE .MEDSUPPLY Qty: 1 Rx Instructions: As directed insulin aspart U-100 [Novolog U-100 Insulin aspart] 100 unit/mL solution 1 sliding scale dose SQ USEASDIRECTD hydroxyzine pamoate 50 mg capsule 50 mg PO HSP PRN (Reason: sleep) 90 Days Qty: 90 0RF Trintellix 20 mg tablet See Rx Instructions .ROUTE .COMPLEX Qty: 90 0RF Dose Instruction: TAKE ONE TABLET BY MOUTH ONCE A DAY FOR MOOD Rx Instructions: TAKE ONE TABLET BY MOUTH ONCE A DAY FOR MOOD bisoprolol fumarate 10 mg tablet 10 mg PO BID Qty: 180 1RF cholecalciferol (vitamin D3) 125 mcg (5,000 unit) capsule 10,000 unit PO DAILY 90 Days Qty: 180 1RF metformin 1,000 mg tablet See Rx Instructions .ROUTE .COMPLEX Qty: 60 0RF Dose Instruction: TAKE ONE TABLET BY MOUTH 2 TIMES A DAY Rx Instructions: TAKE ONE TABLET BY MOUTH 2 TIMES A DAY atorvastatin 20 mg tablet See Rx Instructions .ROUTE .COMPLEX Qty: 90 3RF Dose Instruction: TAKE ONE TABLET BY MOUTH AT BEDTIME Rx Instructions: TAKE ONE TABLET BY MOUTH AT BEDTIME lisinopril 10 mg tablet 10 mg PO BID 30 Days Qty: 180 3RF (DME) OneTouch Ultra Test Strip See Rx Instructions .ROUTE .COMPLEX Qty: 100 5RF Dose Instruction: USE DIRECTED 2 TIMES A DAY FOR DIABETES Rx Instructions: USE DIRECTED 2 TIMES A DAY FOR DIABETES furosemide 40 mg tablet See Rx Instructions .ROUTE .COMPLEX Qty: 180 1RF Dose Instruction: TAKE ONE TABLET BY MOUTH 2 TIMES A DAY NEEDED FOR EDEMA Rx Instructions: TAKE ONE TABLET BY MOUTH 2 TIMES A DAY NEEDED FOR EDEMA hydrocodone-acetaminophen 10-325 mg tablet 1 tab PO QID 30 Days Qty: 120 0RF (DME) lancets [OneTouch Delica Plus Lancet] 33 gauge misc See Rx Instructions .ROUTE .COMPLEX Qty: 100 4RF Dose Instruction: USE DIRECTED TO TEST BLOOD SUGAR Rx Instructions: USE DIRECTED TO TEST BLOOD SUGAR gabapentin 800 mg tablet 800 mg PO TID 30 Days Qty: 90 2RF aspirin 81 mg tablet,delayed release (DR/EC) See Rx Instructions .ROUTE .COMPLEX Qty: 30 11RF Dose Instruction: TAKE ONE TABLET BY MOUTH AT BEDTIME FOR HEART DISEASE Rx Instructions: TAKE ONE TABLET BY MOUTH AT BEDTIME FOR HEART DISEASE clopidogrel [Plavix] 75 mg tablet See Rx Instructions .ROUTE .COMPLEX Rx Instructions: TAKE ONE TABLET BY MOUTH ONCE A DAY FOR PLATELET INHIBITOR Biofreeze (menthol) 4 % gel 1 applic topical TID PRN (Reason: pain) Qty: 89 0RF Rx Instructions: apply to right shoulder area as prescribed Referrals Follow up/Referrals: Monika Hernandez APRN [Primary Care Provider] - See instructions Clinical Impressions Clinical Impression: Acute kidney failure, GI (gastrointestinal bleed), Abdominal ascites Instructions Patient Instructions: DI for Acute Abdominal Pain Print Language Print Language: Bangladeshi Discharge ED Provider: Greg Jones General Adult HPI General Chief complaint: Abdominal Pain Stated complaint: Dizziness,confused,retaining fluid,SOA Time Seen by Provider: 11/29/24 20:25 Mode of Arrival: Wheelchair Source of Information: Patient and Relative Description of Symptoms (Recalled from ER Triage Doc. by RN): PT presents for evaluation of intermittent confusion over the last couple of weeks, abdominal and leg swelling and has been feeling short of breath. Pt noted to have slight yellow sclera. Pt states she was diagnosed with cirrhosis and is supposed to see dr. clark on December 07. Pt states she is a t2dm and her blood sugar before she left home was 69 History of Present Illness HPI narrative: Please note that above description of symptoms, in this electronic medical record under categorization of recalled from ER triage doctor by RN are reflective of an initial nursing assessment, however, is not reflective of my full history and physical exam that was personally taken and clarified. Consequentially, this preceding description of symptoms, which may include the patient's categorized chief complaint in the EMR, do not reflect my personal clinical impression, and the ultimate description of history of present illness and patient stated complaints should be deferred to this section of the note. Unless stated otherwise or congruent with this section of the note, additional signs, symptoms, or incongruence should be interpreted as inaccurate with my clinical impression. Related Data Home Medications ?Medication ?Instructions ?Recorded ?Confirmed insulin pump cart,automated,BT #5 ea 05/16/23 10/20/24 (Omnipod 5 G6 Pods (Gen 5) subcutaneous cartridge) clopidogrel 75 mg tablet (Plavix) See Rx Instructions .Route .COMPLEX 12/18/23 10/20/24 triamcinolone acetonide 0.1 % 0.1 applic topical DAILY 03/11/24 10/20/24 topical cream (Triderm) blood-glucose meter (OneTouch #1 ea 06/15/24 10/20/24 Ultra2 Meter) insulin aspart U-100 100 unit/mL 1 sliding scale dose SQ 08/11/24 10/20/24 subcutaneous solution (Novolog USEASDIRECTD U-100 Insulin aspart) Previous Rx's ?Medication ?Instructions ?Recorded hydroxyzine pamoate 50 mg capsule 50 mg PO HSP PRN sleep 90 days #90 10/20/23 caps menthol 4 % topical gel (Biofreeze 1 applic topical TID PRN pain #89 02/24/24 (menthol)) mL vortioxetine 20 mg tablet See Rx Instructions .Route 03/22/24 (Trintellix) .COMPLEX #90 tabs bisoprolol fumarate 10 mg tablet 10 mg PO BID High blood pressure 04/21/24 #180 tabs colestipol 1 gram tablet (Colestid) 1 g PO .Nightly 30 days #60 tabs 04/27/24 ammonium lactate 12 % topical cream 1 applic topical BID dry skin, 07/27/24 callus care #385 grams cholecalciferol (vitamin D3) 125 10,000 unit PO DAILY 90 days #180 08/02/24 mcg (5,000 unit) capsule caps albuterol sulfate 90 mcg/actuation 1 inh inhalation QID #6.7 grams 08/24/24 aerosol inhaler metformin 1,000 mg tablet See Rx Instructions .Route 09/29/24 .COMPLEX #60 tabs atorvastatin 20 mg tablet See Rx Instructions .Route 10/04/24 .COMPLEX #90 tabs lisinopril 10 mg tablet 10 mg PO BID High blood pressure 10/04/24 30 days #180 tabs blood sugar diagnostic (OneTouch #100 strips 10/11/24 Ultra Test strips) tirzepatide 7.5 mg/0.5 mL 7.5 mg (0.5 mL) SQ WEEKLY #2.5 mL 10/20/24 subcutaneous pen injector (Mounjaro) furosemide 40 mg tablet See Rx Instructions .Route 11/08/24 .COMPLEX #180 tabs hydrocodone 10 mg-acetaminophen 1 tab PO QID 30 days #120 tabs 11/15/24 325 mg tablet aspirin 81 mg tablet,delayed See Rx Instructions .Route 11/29/24 release .COMPLEX #30 tabs gabapentin 800 mg tablet 800 mg PO TID 30 days #90 tabs 11/29/24 lancets 33 gauge (OneTouch Delica #100 ea 11/29/24 Plus Lancet) Allergies Allergy/AdvReac Type Severity Reaction Status Date / Time No Known Allergies Allergy Verified 10/20/24 14:05 [facility] Disclaimer: The information contained in this section may have been updated after the patient was seen, as this information can be updated by other users. Medical History (Updated 11/29/24 @ 22:54 by Greg Jones MD) Fall Syncope and collapse Wound abscess Cellulitis of left foot Dyspnea Incurved toenail Abscess Acute bronchitis Loose stools Stomach pain Nausea Pulmonary regurgitation Foot pain, left Pulmonary vascular congestion Diastolic dysfunction Insomnia Generalized anxiety disorder Major depressive disorder Diabetes mellitus, type 2 Depression Anxiety Greater trochanteric bursitis of right hip Sacroiliitis Spinal stenosis Degenerative disc disease, lumbar Neck pain Back pain with right-sided sciatica CTS (carpal tunnel syndrome) Neuroforaminal stenosis of lumbar spine Splenomegaly Thrombocytopenia Hypertensive urgency Abnormal CT scan, pelvis Gallbladder hydrops Acute calculous cholecystitis Symptomatic cholelithiasis Uncontrolled type 2 diabetes mellitus E coli bacteremia Obesity (BMI 30.0-34.9) GERMÁN (acute kidney injury) Gastroenteritis Septic shock Severe sepsis Diabetic retinopathy Dizziness Anxiety with depression Sinus tachycardia Hypertension Obesity (BMI 30-39.9) RAD (reactive airway disease) Illness Lumbar canal stenosis Foraminal stenosis of lumbar region Ligamentum flavum hypertrophy Facet hypertrophy of lumbar region Bulging lumbar disc Dehydration Renal insufficiency HLD (hyperlipidemia) HHD (hypertensive heart disease) CAD (coronary artery disease) Surgical History History of excision of mass History of cardiac catheterization History of cholecystectomy History of coronary artery stent placement Family History Other Cancer Family history of diabetes mellitus type II Family history of hypertension Social History Smoking Status: Never smoker second hand exposure: No alcohol intake: current alcohol intake frequency: a few times a month substance use type: denies use current occupational status: disabled and other Travel in the last 8 weeks?: None household members: none housing: house lives independently: Yes marital status: single number of children: 0 education level: high school current occupation: [employer] current occupational exposures/hazards: No caffeine: No Have you lived/traveled outside [place] in past 30 days?: No Contact w/someone who lives/traveled outside US past 30 days?: No Exposure to someone with infectious disease in past 14 days?: No Do you have a fever (greater than 100.4 F or 38 C)?: No Have you tested positive for COVID-19?: No Exposed to someone with COVID-19 in past 14 days?: No Do you have a sore throat?: No Do you have a cough?: No Do you have any weakness?: No Do you have any diarrhea?: No Are you experiencing any unusual bleeding?: No Do you have any muscle aches/pain?: No Do you have any abdominal pain?: No Are you experiencing loss of taste or smell?: No Other Medical History Have you received the Flu Vaccine for this season: No Have you received the Pneumonia Vaccine: No ROS Obtained: Yes All systems reviewed & no additional complaints except as documented Physical Exam General General appearance: alert Head Head exam: atraumatic and normocephalic Eye Eye exam: Present normal appearance, PERRL and EOMI Neck Neck exam: Present normal inspection, full ROM and trachea midline Respiratory Respiratory exam: Present normal lung sounds bilaterally; Absent respiratory distress, wheezes, stridor, accessory muscle use or prolonged expiratory phase Cardiovascular Cardiovascular exam: Present regular rate, normal rhythm and other (Pulses equal symmetric in upper and lower extremities) Abdominal Exam Abdominal exam: Present soft, tenderness and ascites; Absent distention, guarding, rebound, rigidity or pulsatile mass Extremities Exam Extremities exam: Absent edema Neurological Exam Neurological exam: Present alert, oriented X3 and CN II-XII intact; Absent motor sensory deficit Skin Skin exam: Present warm and dry; Absent diaphoresis or erythema Medical Decision Making Medical Records Medical records reviewed: Yes I reviewed the patient's medical records. Screening: Per USPSTF and CDC recommendations, given the prevalence of disease in our region, it is our hospital?s policy to screen for HIV and viral Hepatitis for all patients aged 18 and over and those with ongoing risk factors. Billy Inquiry Pt receiving controlled substance: No Billy was queried for this patient: No Vital Signs: 11/29/24 20:26 11/29/24 20:32 11/29/24 21:00 Temperature 98.3 F Temperature Source Oral Pulse Rate 99 H Pulse Rate [Right] 102 H Respiratory Rate 18 12 10 L Blood Pressure 143/79 H 136/72 Blood Pressure [Right Arm] 171/82 H Blood Pressure Mean [Right Arm] 111 Blood Pressure Source [Right Arm] Automatic Cuff Blood Pressure Position [Right Arm] Sitting 02 Sat by Pulse Oximetry 96 98 Oxygen Delivery Method Room Air Room Air Room Air 11/29/24 21:30 11/29/24 22:00 Temperature Temperature Source Pulse Rate 100 H 31 L Pulse Rate [Right] Respiratory Rate 11 L 12 Blood Pressure 136/74 146/85 H Blood Pressure [Right Arm] Blood Pressure Mean [Right Arm] Blood Pressure Source [Right Arm] Blood Pressure Position [Right Arm] 02 Sat by Pulse Oximetry 98 99 Oxygen Delivery Method Room Air Room Air Lab Data Lab Results 11/29/24 20:23: WBC 2.1 L, RBC 2.75 L, Hgb 8.6 L, Hct 27.1 L, MCV 98.5, MCH 31.3 H, MCHC 31.7 L, RDW 15.9, Plt Count 82 L, MPV 10.3, Neut % (Auto) 63.2, Lymph % (Auto) 24.2, [place] % (Auto) 11.6 H, Eos % (Auto) 0.0 L, Baso % (Auto) 0.5, Neut # (Auto) 1.3 L, Lymph # (Auto) 0.5 L, [place] # (Auto) 0.2, Eos # (Auto) 0.0, Baso # (Auto) 0.0, PT 12.6 H, INR 1.14 H, APTT 27.7, Sodium 143, Potassium 4.6, C hloride 114 H, Carbon Dioxide 21 L, Anion Gap 12.6, BUN 66 H, Creatinine 4.60 H, Estimated Creat Clear 19, Estimated GFR 10 L*, Est GFR ( Amer) 12 L*, Glucose 99, Hemoglobin A1c 4.4, Calcium 8.9, Magnesium 2.6 H, Total Bilirubin 0.9, Direct Bilirubin 0.5 H, AST 50 H, ALT 25, Alkaline Phosphatase 115, N T-Pro-B Natriuret Pep 2660 H, Total Protein 6.7, Albumin 2.9 L, Globulin 3.8 H, Albumin/Globulin Ratio 0.8 L, Lipase 197 11/29/24 20:33: Ammonia 28 11/29/24 20:38: VBG pH 7.26 L, VBG pCO2 48.0, VBG pO2 44.4 H, VBG HCO3 21.3 L, V BG Total CO2 22.7 L, VBG O2 Saturation 75.8 H, VBG Base Excess -5.8 L, VBG Lactic Acid 2.1 H 11/29/24 20:23 11/29/24 20:23 Orders (Tests/Meds): ED MEDICATIONS Generic Name Dose Route Start Last Admin Trade Name Freq PRN Reason Stop Dose Admin Sodium Chloride 10 ml 11/29/24 21:09 Sodium Chloride 0.9% 10ml Vial IV 12/29/24 21:08 NEEDED PRN dilute protonix Discontinued Medications Generic Name Dose Route Start Last Admin Trade Name Freq PRN Reason Stop Dose Admin Ceftriaxone Sodium 2 gm/ 100 mls @ 200 mls/hr 11/29/24 21:09 11/29/24 21:39 Sodium Chloride IV 11/29/24 21:38 200 mls/hr ONCE ONE Administration Lidocaine HCl 20 ml 11/29/24 21:01 11/29/24 21:11 Lidocaine 2% 20ml Vial IJ 11/29/24 21:02 20 ml ONCE ONE Administration Pantoprazole Sodium 40 mg 11/29/24 21:09 11/29/24 21:38 Pantoprazole 40mg Vial IV 11/29/24 21:10 40 mg ONCE ONE Administration ORDERS Category Date Time Status CT abdomen pelvis wo con Stat Cat Scan 11/29/24 21:02 Completed POCUS Point of Care (ER Only) Stat Exams 11/29/24 20:50 Completed Ammonia Stat Lab 11/29/24 20:33 Completed Bilirubin,Direct Stat Lab 11/29/24 20:23 Completed Body Fluid: Cell Count w/ Diff Stat Lab 11/29/24 20:25 Ordered Complete Blood Count Auto Diff Stat Lab 11/29/24 20:23 Results Comprehensive Metabolic Panel Stat Lab 11/29/24 20:23 Completed Hemoglobin A1C Stat Lab 11/29/24 20:23 Completed Lipase Stat Lab 11/29/24 20:23 Completed Magnesium Stat Lab 11/29/24 20:23 Completed NT Pro Brain Natriuretic Pep. Stat Lab 11/29/24 20:23 Completed PT INR [Prothrombin Time INR] Stat Lab 11/29/24 20:23 Completed PTT [Activated Partial Thrombo Time] Stat Lab 11/29/24 20:23 Completed Urinalysis and Microscopic Stat Lab 11/29/24 20:26 Ordered Blood Culture Stat Micro 11/29/24 21:10 Received Body Fluid Cult & Gram Stain Stat Micro 11/29/24 20:25 Ordered Venous Blood Gas Stat RT 11/29/24 20:38 Completed Medical Decision Narrative: 64-year-old female history of [place] cirrhosis presenting with abdominal swelling. Daughter at bedside corroborating story. States that just a couple of weeks prior to this, patient's abdomen was completely normal. Now she is swollen, tender, intermittently confused, swelling all the way down into her legs. Patient has been unable to sleep, getting days and nights mixed up, but currently oriented. No dedra abdominal pain, just discomfort from the distention. No fevers or chills, urinary symptoms. Patient mostly worried that her kidneys are involved in someway, so came in for further evaluation at the behest of family. History was obtained via conversation with patient and daughter. On arrival, patient hemodynamically stable, alert, oriented x4, appropriate, GCS 15, moving all extremities spontaneously, pupils equal and reactive to light. Full physical exam performed and significant for chronically ill-appearing female who is in no acute distress. Vital signs are all normal. She speaking in full sentences, alert and oriented, very pleasant. Abdomen is soft, distended, positive fluid wave, no evidence of tenderness on deep palpation. No overlying erythema or induration. Lower extremity 2+ pitting edema. Cardiopulmonary exam on. Differential includes acute decompensated cirrhosis, portal vein thrombosis, hepatic vein thrombosis, spontaneous bacterial peritonitis, progression of disease, liver cancer, ovarian cancer, other malignancy, CHF, among others. Patient placed on continuous cardiac monitoring and continuous pulse ox with initial blood pressure 171/82, heart rate 102, saturation 98% on room air. Independent interpretation of EKG shows sinus tachycardia 100 bpm with ID [id number], QRS 94, QTc 427. No acute ischemic changes. Patient was given IV fluids for symptomatic management and correction of underlying abnormalities. Workup independently interpreted and significant for leukopenia, anemia with near 4 point hemoglobin drop in the last month and a half. Stable thrombocytopenia. LFTs largely unremarkable with mildly elevated AST, but normal bilirubin, ALT and alkaline phosphatase. Patient's chemistry most concerning for GERMÁN with creatinine 4.6 and BUN 66 up from normal baseline. Patient's MELD score 21. On independent interpretation of imaging, ascites, unable to give contrast given kidney disease to assess for thrombus. See radiology read for full review of final results. On reevaluation, patient still resting at baseline, unable to provide urine sample, IV fluids were started. I contacted [facility], they were full, contacted [place] and spoke to hospitalist as well as gastroenterology who graciously accepted patient for transfer. Because patient high risk for clinical decompensation if discharged, deemed appropriate for transfer and inpatient admission. Results were relayed to patient who voiced understanding and patient was agreeable to transfer, inpatient admission, and management. Patient was graciously accepted and transferred to [facility] for further definitive management, under Dr. White. Director Ambulatory disclaimer Much of this encounter note is an electronic inorganic chemistry teacher spoken language to printed text. Electronic inorganic chemistry teacher of the spoken language may permit errors. Although I have reviewed the note, some errors may still exist. Critical Care Critical Care Time Critical Care Time: Yes (gi) Attestation: On 11/29/24, the high probability of a clinically significant, sudden or life threatening deterioration of the following system(s) required my full and direct attention, intervention and personal management. The time I documented below is in addition to time spent performing reported procedures but includes the following listed in this critical care notation. Total Time Total Critical Care Time: 45
[2024-11-29 21:01] LABS: Ammonia 28 umol/L (9-30)
[2024-11-29 21:02] LABS: Alanine Aminotransferase 25 U/L (12-78); Albumin/Globulin Ratio 0.8 (1.1-1.8); Alkaline Phosphatase 115 U/L (38-126); Anion Gap 12.6 mEq/L (5-15); Aspartate Amino Transferase 50 U/L (14-36); Bilirubin,Total 0.9 mg/dl (0.2-1.3); Blood Urea Nitrogen 66 mg/dl (7-17); Calcium 8.9 mg/dl (8.4-10.2); Carbon Dioxide 21 mmol/L (22.0-30.0); Creatinine Clearance Estimated 19 mL/min (50-200); Estimated Glomerular Filt Rate 10 ml/min (>60); GFR (African American) 12 ML/MIN (>60); Globulin 3.8 g/dL (1.3-3.2); Glucose 99 mg/dl (74-100); Lipase 197 U/L (23-300); Magnesium 2.6 mg/dl (1.6-2.3); Total Protein,Serum 6.7 g/dl (6.3-8.2)
--- NOTE | 2024-11-29 21:02 | CT_ITS ---
PROCEDURE INFORMATION: Exam: CT Abdomen And Pelvis Without Contrast Exam date and time: 11/29/2024 9:37 PM Age: 64 years old Clinical indication: Abdominal pain; Additional info: Acute swelling. R/O hepatic vs portal thrombus TECHNIQUE: Imaging protocol: Computed tomography of the abdomen and pelvis without contrast. Radiation optimization: All CT scans at this facility use at least one of these dose optimization techniques: automated exposure control; mA and/or kV adjustment per patient size (includes targeted exams where dose is matched to clinical indication); or iterative reconstruction. COMPARISON: MR ABDOMEN WO CON 10/15/2021 8:15 AM FINDINGS: Lungs: Linear areas of atelectasis in the lung bases Heart: Cardiomegaly Liver: Cirrhosis Gallbladder and biliary ducts: Cholecystectomy Pancreas: Normal. No ductal dilation. Spleen: 16 cm splenomegaly. Adrenal glands: Normal. No mass. Kidneys and ureters: Normal. No hydronephrosis. Stomach and bowel: Unremarkable. No obstruction. No mucosal thickening. Appendix: No evidence of appendicitis. Intraperitoneal space: Large volume abdominopelvic ascites Vasculature: Unremarkable. No abdominal aortic aneurysm. Lymph nodes: Unremarkable. No enlarged lymph nodes. Urinary bladder: Unremarkable as visualized. Reproductive: Unremarkable as visualized. Bones/joints: Unremarkable. No acute fracture. Soft tissues: Soft tissue anasarca IMPRESSION: 1. Large volume abdominopelvic ascites 2. Soft tissue anasarca 3. Cirrhosis 4. No colitis or small bowel obstruction
[2024-11-29 21:11] LABS: NT Pro Brain Natriuretic Pep. 2660 pg/mL (0-125)
[2024-11-29] MEDS: LIDOCAINE 2% 20ML VIAL 20 ML IJ (21:11)
[2024-11-29 21:35] LABS: Bilirubin,Direct 0.5 mg/dl (0.0-0.4)
[2024-11-29] MEDS: PANTOPRAZOLE 40MG VIAL 40 MG IV (21:38)
--- NOTE | 2024-11-29 21:38 | PC.NURSE ---
Called regarding transfer.
[2024-11-29] MEDS: CEFTRIAXONE SODIUM 2 GM in 0.9 % SODIUM CHLORIDE 100 ML IV (21:39)
--- NOTE | 2024-11-29 22:02 | PC.NURSE ---
Called [facility] regarding transfer.
[2024-11-29 22:37] LABS: Hemoglobin A1C 4.4 % (4.0-6.0)
[2024-11-29 22:50] LABS: Total Cells Counted 100
[2024-11-29 22:51] LABS: Lymphocytes % 27 % (10-50); Monocytes % 5 % (2-9); Neutrophils % 68 % (42-76); Platelet Estimate Slight Decrease; RBC Morphology Normal
[2024-11-29] MEDS: LACTATED RINGERS 1000ML 1,000 ML 999 ML IV (23:33)
--- NOTE | 2024-11-29 23:43 | PC.NURSE ---
FSBG 98MG/DL @ 2342
[2024-11-30] VITALS: BP 143/86; PULSE 97; O2SAT 97
[2024-11-30 00:30] VITALS: BP 140/76; PULSE 103; O2SAT 95
[2024-11-30 00:43] VITALS: BP 133/78; PULSE 95; RESP 18; TEMP 37.2; O2SAT 99
[2024-11-30 00:45] LABS: Reflex Lactic Add Lactic Reflex
== END 2024-11-30 00:45 | disposition short-term general hospital (02) ==
PROVIDERS: Emergency Provider Emergency Medicine; PCP Family Medicine
DX: K92.2 Gastrointestinal hemorrhage, unspecified (principal); R18.8 Other ascites; R06.02 Shortness of breath; N17.9 Acute kidney failure, unspecified; K75.81 Nonalcoholic steatohepatitis (NASH)
CPT/HCPCS: 74176; 80053; 82140; 82248; 82803; 83036; 83690; 83735; 83880; 85007; 85025; 85027; 85610; 85730; 87040; 93005; 96361; 96365; 96375; 99291; J0696; J2470; J7120

== ENCOUNTER 2024-12-26 13:49 | Outpatient (CLI) | payer MEDICARE, MEDICAID, SELFPAY ==
--- OUTSIDE RECORDS SUMMARY | 2024-12-26 13:53 | XMS_ITS | Data Portability ---
Author Organization [place] [facility] [place] [facility] ADMIN Address [address] [place] [address] Care Team Providers Care Catering Driver Name Role Phone SARI MIX Primary Care Provider Assessment Encounter Date Assessment Date Assessment LastModified [...] History of colonoscopy: Colonoscopy performed 01/2021 at [facility] with polypectomy (TA). 1 year repeat was recommended but she states she did not follow-up. She has a history of anal soft tissue thickening that was previously being followed by Dr. Quiñonez. 3) Nausea/abdominal pain: Continue Zofran as needed. EGD/colonoscopy scheduled. Not available 05/14/2023 16:14:25 Plan of Treatment Reminders Order Date Submit Date Provider Last Modified By Organization Details Last Modified Time Details Appointments None recorded. Lab CBC 2022 023 ABE [facility], [address], [address], [place], [address], 3 07:14:09 CMP, serum or plasma 2022 023 ABE [facility], [address], [address], [place], [address], 3 07:14:08 PT/INR 2022 023 [facility], [address], [address], [place], [address], 3 07:14:10 afp (alpha-feto protein) tumor marker, serum or plasma 2022 023 A[facility], [address], [address], [place], [address], 3 07:14:12 JEANA (antinuclea r antibodies) screen, serum 2022 023 A[facility], [address], [address], [place], [address], 3 07:14:14 mitochondri al Ab, serum 2022 023 [email or web address] [facility], [address], [address], [place], [address], 3 08:37:53 smooth muscle Ab, serum 2022 023 A[facility], [address], [place], [address], 3 07:14:11 igg, quantitativ e, serum 2022 023 A[facility], [address], [address], [place], [address], 3 07:14:15 hepatitis B surface Ab, quantitativ e, serum 2022 023 A[facility], [address], [address], [place], [address], 3 07:14:13 Referral None recorded. Procedures None recorded. Surgeries None recorded. Imaging US, liver 2022 023 [email or web address] ([facility]), [address], [place], [address], 15:31:08 Medication Orders Xifaxan 550 mg tablet 2022 023 [email or web address] [facility], [address], [place], [place], [id number], 16:07:45 Patient TargetsNo targets recorded. Patient InstructionsNo instructions recorded. Reason for Referral None Reported. Results Created Date Observation Date Name Description Value Unit Range Abnormal Flag Note LastModifiedBy Organization Detail LastModifiedTime 05/14/2005/15/2023 COMP. METAB OLIC PANEL (14) glucose 292 mg/dL 70-99 above high normal Not Available [facility] ([facility]) [address] [facility], [place], [address], 05/16/2023 07:14:08 05/14/2005/15/2023 COMP. METAB OLIC PANEL (14) BUN 39 mg/dL 8-27 above high normal Not Available [facility] ([facility]) [address] [facility] [place], [address], 05/16/2023 07:14:08 05/14/20 23 05/15/2023 COMP. METAB OLIC PANEL (14) creatinine 1.73 mg/dL 0.57-1 .00 above high normal Not Available [facility] ([facility]) [address] [facility] [place], [address], 05/16/2023 07:14:08 05/14/20 23 05/15/2023 COMP. METAB OLIC PANEL (14) eGFR 33 mL/mi n/1.7 3 >59 below low normal Not Available [facility] ([facility]) [address] [facility] [place], [address], 05/16/2023 07:14:08 05/14/20 23 05/15/2023 COMP. METAB OLIC PANEL (14) BUN/creatini ne ratio 23 12-28 Not Available [facility] ([facility]) [address] [facility] [place], [address], 05/16/2023 07:14:08 05/14/2005/15/2023 COMP. METAB OLIC PANEL (14) sodium 143 mmol/ L 134-14 4 Not Available [facility] ([facility]) [address] [facility] [place], [address], 05/16/2023 07:14:08 05/14/20 23 05/15/2023 COMP. METAB OLIC PANEL (14) potassium 4.8 mmol/ L 3.5-5. 2 Not Available [facility] ([facility]) [address] [facility] [place], [address], 05/16/2023 07:14:08 05/14/20 23 05/15/2023 COMP. METAB OLIC PANEL (14) chloride 103 mmol/ L 96-106 Not Available [facility] ([facility]) [address] [facility] [place], [address], 05/16/2023 07:14:08 05/14/20 23 05/15/2023 COMP. METAB OLIC PANEL (14) carbon dioxide, total 28 mmol/ L 20-29 Not Available [facility] ([facility]) [address] [facility], [place], [address], 05/16/2023 07:14:08 05/14/20 23 05/15/2023 COMP. METAB OLIC PANEL (14) calcium 9.2 mg/dL 8.7-10 .3 Not Available [facility] ([facility]) [address] [facility], [place], [address], 05/16/2023 07:14:08 05/14/20 23 05/15/2023 COMP. METAB OLIC PANEL (14) protein, total 7.4 g/dL 6.0-8. 5 Not Available [facility] ([facility]) [address] [facility], [place], [address], 05/16/2023 07:14:08 05/14/20 23 05/15/2023 COMP. METAB OLIC PANEL (14) albumin 4.1 g/dL 3.9-4. 9 Not Available [facility] ([facility]) [address] [facility], [place], [address], 05/16/2023 07:14:08 05/14/20 23 05/15/2023 COMP. METAB OLIC PANEL (14) globulin, total 3.3 g/dL 1.5-4. 5 Not Available [facility] ([facility]) [address] [facility], [place], [address], 05/16/2023 07:14:08 05/14/20 23 05/15/2023 COMP. METAB OLIC PANEL (14) A/G ratio 1.2 1.2-2. 2 Not Available [facility] ([facility]) [address] [facility], [place], [address], 05/16/2023 07:14:08 05/14/20 23 05/15/2023 COMP. METAB OLIC PANEL (14) bilirubin, total 0.7 mg/dL 0.0-1. 2 Not Available [facility] ([facility]) [address] [facility], [place], [address], 05/16/2023 07:14:08 05/14/20 23 05/15/2023 COMP. METAB OLIC PANEL (14) alkaline phosphatase 144 IU/L 44-121 above high normal Not Available [facility] ([facility]) [address] [facility], [place], [address], 05/16/2023 07:14:08 05/14/2005/15/2023 COMP. METAB OLIC PANEL (14) AST (SGOT) 39 IU/L 0-40 Not Available [facility] ([facility]) [address] [facility], [place], [address], 05/16/2023 07:14:08 05/14/2005/15/2023 COMP. METAB OLIC PANEL (14) ALT (SGPT) 27 IU/L 0-32 Not Available [facility] ([facility]) [address] [facility], [place], [address], 05/16/2023 07:14:08 05/14/2005/15/2023 CBC, PLATE LET, NO DIFFE RENTI AL WBC 3.8 x10e3 /uL 3.4-10 .8 Not Available [facility] ([facility]) [address] [facility], [place], [address], 05/16/2023 07:14:09 05/14/2005/15/2023 CBC, PLATE LET, NO DIFFE RENTI AL RBC 3.98 x10e6 /uL 3.77-5 .28 Not Available [facility] ([facility]) [address] [facility], [place], [address], 05/16/2023 07:14:09 05/14/2005/15/2023 CBC, PLATE LET, NO DIFFE RENTI AL hemoglobin 12.9 g/dL 11.1-1 5.9 Not Available [facility] ([facility]) [address] [facility], [place], [address], 05/16/2023 07:14:09 05/14/2005/15/2023 CBC, PLATE LET, NO DIFFE RENTI AL hematocrit 39.7 % 34.0-4 6.6 Not Available [facility] ([facility]) [address] [facility], [place], [address], 05/16/2023 07:14:09 05/14/2005/15/2023 CBC, PLATE LET, NO DIFFE RENTI AL MCV 100 fL 79-97 above high normal Not Available [facility] ([facility]) [address] [facility], [place], [address], 05/16/2023 07:14:09 05/14/2005/15/2023 CBC, PLATE LET, NO DIFFE RENTI AL MCH 32.4 pg 26.6-3 3.0 Not Available [facility] ([facility]) [address] [facility], [place], [address], 05/16/2023 07:14:09 05/14/2005/15/2023 CBC, PLATE LET, NO DIFFE RENTI AL MCHC 32.5 g/dL 31.5-3 5.7 Not Available [facility] ([facility]) [address] [place], [address], 05/16/2023 07:14:09 05/14/2005/15/2023 CBC, PLATE LET, NO DIFFE RENTI AL RDW 14.1 % 11.7-1 5.4 Not Available [facility] ([facility]) [address] [facility], [place], [address], 05/16/2023 07:14:09 05/14/2005/15/2023 CBC, PLATE LET, NO DIFFE RENTI AL platelets 81 x10e3 /uL 150-45 0 alert low Plate let count verif ied by exami natio n of perip heral blood smear . Not Available [facility] ([facility]) [address] [facility], [place], [address], 05/16/2023 07:14:09 05/14/2005/15/2023 CBC, PLATE LET, NO DIFFE RENTI AL hematology comments: NOTE: Verif ied by micro scopi c exami natio n. Not Available [facility] ([facility]) [address] [facility], [place], [address], 05/16/2023 07:14:09 05/14/2005/15/2023 CBC, PLATE LET, NO DIFFE RENTI AL NRBC SCALE EXPERT Not Available [facility] ([facility]) [address] [facility], [place], [address], 05/16/2023 07:14:09 05/14/2005/15/2023 PROTH ROMBI N TIME [...] range 2.5 - 3.5 Not Available [facility] ([facility]) [address] [facility], [place], [address], 05/16/2023 07:14:10 05/14/2005/15/2023 PROTH ROMBI N TIME (PT), SERIA L prothrombin time 11.9 sec 9.1-12 .0 Not Available [facility] ([facility]) [address] [facility], [place], [address], 05/16/2023 07:14:10 05/14/2005/15/2023 PROTH ROMBI N TIME (PT), SERIA L pdf . Not Available [facility] ([facility]) [address] [place], [address], 05/16/2023 07:14:10 05/14/2005/15/2023 ANTI- AIXA H MUSCL [...] bilia ry cirrh osis. Not Available [facility] ([facility]) [address] [place], [address], 05/16/2023 07:14:11 05/14/2005/15/2023 ANTI- AIXA H MUSCL E/TAHIR OCHON D. mitochondria l (M2) antibody <20.0 units 0.0-20 .0 Negat marnie 0.0 - 20.0 Equiv ocal 20.1 - 24.9 Posit marnie >24.9 Mitoc hondr ial (M2) Antib odies are found in 90-96 % of patie nts with prima ry bilia ry cirrh osis. Not Available [facility] ([facility]) [address] [place], [address], 05/16/2023 07:14:11 05/14/2005/15/2023 AFP, SERUM , TUMOR [...] pregn ant femal es. Not Available [facility] ([facility]) [address] [place], [address], 05/16/2023 07:14:12 05/14/2005/15/2023 HEPAT ITIS B SURF AB QUANT hepatitis B surf Ab quant <3.1 mIU/m L immuni ty>9.9 below low normal Statu s of Immun ity Anti- HBs Level ----- ----- ----- --- ----- ----- ---- Incon siste nt with Immun ity 0.0 - 9.9 Consi stent with Immun ity >9.9 Not Available [facility] ([facility]) [address] [place], [address], 05/16/2023 07:14:13 05/14/2005/15/2023 JEANA W/REF KISHOR IF POSIT MARNIE JEANA direct POSITI VE negati ve abnormal Not Available [facility] ([facility]) [address] [place], [address], 05/16/2023 07:14:14 05/14/2005/15/2023 JEANA W/REF KISHOR IF POSIT MARNIE anti-DNA (ds) Ab qn <1 IU/mL 0-9 Negat marnie <5 Equiv ocal 5 - 9 Posit marnie >9 Not Available [facility] ([facility]) [address] [place], [address], 05/16/2023 07:14:14 05/14/2005/15/2023 JEANA W/REF KISHOR IF POSIT MARNIE room clerk antibodies <0.2 ai 0.0-0. 9 Not Available [facility] ([facility]) [address] [place], [address], 05/16/2023 07:14:14 05/14/2005/15/2023 JEANA W/REF KISHOR IF POSIT MARNIE perez antibodies <0.2 ai 0.0-0. 9 Not Available [facility] ([facility]) [address] [place], [address], 05/16/2023 07:14:14 05/14/2005/15/2023 JEANA W/REF KISHOR IF POSIT MARNIE antisclerode rma-70 antibodies 0.3 ai 0.0-0. 9 Not Available [facility] ([facility]) [address] [place], [address], 05/16/2023 07:14:14 05/14/2005/15/2023 JEANA W/REF KISHOR IF POSIT MARNIE sjogren's anti-ss-A <0.2 ai 0.0-0. 9 Not Available [facility] ([facility]) [address] [place], [address], 05/16/2023 07:14:14 05/14/2005/15/2023 JEANA W/REF KISHOR IF POSIT MARNIE sjogren's anti-ss-B <0.2 ai 0.0-0. 9 Not Available [facility] ([facility]) [address] [place], [address], 05/16/2023 07:14:14 05/14/2005/15/2023 JEANA W/REF KISHOR IF POSIT MARNIE antichromati n antibodies <0.2 ai 0.0-0. 9 Not Available [facility] ([facility]) [address] [place], [address], 05/16/2023 07:14:14 05/14/2005/15/2023 JEANA W/REF KISHOR IF POSIT MARNIE anti-trisha-1 <0.2 ai 0.0-0. 9 Not Available [facility] ([facility]) [address] [place], [address], 05/16/2023 07:14:14 05/14/2005/15/2023 JEANA W/REF KISHOR IF POSIT MARNIE anti-centrom ere B antibodies 2.7 ai 0.0-0. 9 above high normal Not Available [facility] ([facility]) [address] [facility], [place], [address], 05/16/2023 07:14:14 05/14/2005/16/2023 JEANA W/REF KISHOR IF POSIT MARNIE complement C3, serum 109 mg/dL 82-167 Not Available [facility] ([facility]) [address] [facility], [place], [address], 05/16/2023 07:14:14 05/14/2005/16/2023 JEANA W/REF KISHOR IF POSIT MARNIE complement C4, serum 20 mg/dL 12-38 Not Available [facility] ([facility]) [address] [facility], [place], [address], 05/16/2023 07:14:14 05/14/2005/15/2023 IMMUN OGLOB ULIN G, QN, SERUM immunoglobul in g, qn, serum 1562 mg/dL 586-16 02 Not Available [facility] ([facility]) [address] [facility], [place], [address], 05/16/2023 07:14:15 06/06/2006/06/2023 US, liver No observ ation record ed. [facility] [address], [place], [address], 06/13/2023 12:55:07 Result Notes None recorded. Problems Name Problem SNOMED Code Status Onset Date Resolution Date Notes Provider Name and Address Organization Details Recorded Time Stage 3 hepatic fibrosis 5060898422420 9109 Active 2022 Raul Kincaid PA-C [address], [place], [address] , [facility] [place] 04/13/202 3 08:26:45 Anticentro mere antibody pattern 965058413 Active 2022 Raul Kincaid PA-C [address], [place], [place], [address] [place] [address] , [facility] [place] 3 08:27:15 Metabolic dysfunctio n-associat ed steatohepa titis 867692914 Active 2022 Raul Kincaid PA-C [address], [place] [address] , [facility] [place] 3 08:28:41 Hepatic encephalop athy 04040266 Active 2022 Raul Kincaid PA-C [address], [place] [address] , [facility] [place] 3 10:58:50 Anti-nucle ar factor detected 562371016 Active 2022 Raul Kincaid PA-C [address], [place] [address] , [facility] & [place] 3 16:09:02 Problem Notes None recorded. Medical Equipment None Reported. [...] Address Organization Details Last Updated DateTime 3 [address]3810.9 4 g 97.4 [degF] 32.6 kg/m2 167.64 cm 84 /min 91 /min 98 % 98 % 131 mm[Hg] 72 mm[Hg] Luz Maria Pike [facility] [place] 10:32:47 Social History Question Answer Notes LastModified by Gibberinat ion Details LastModified Time Tobacco Smoking Status Never Smoker Luz Maria ayala, [facility] [place] 05/14/2023 10:31:56 What Is Your Level Of Caffeine Consumption? Moderate [email or web address] Information not available 05/14/2023 Sex: Unknown Functional Status Question Answer Note LastModified by Organizat ion Details LastModified Time Do you use any illicit or recreational drugs? No [email or web address] Information not available 05/14/2023 Do you or have you ever used any other forms of tobacco or nicotine? No [email or web address] Information not available 05/14/2023 What is your level of alcohol consumption? Occasional [email or web address] Information not available 05/14/2023 Mental Status None recorded. Family History Relationship [...] SNOMED-CT Code Diagnosis ICD10 Code Diagnosis Note [id number] Raul Kincaid PA-C [facility] [address] [address] 05/14/2023 10:00:22 05/14/2023 11:33:43 Stage 3 hepatic fibrosis 7604581311 4776236 K74.02 Hepatic encephalopathy 48743130 K76.82 History of polyp of colon 264796727 Z86.010 Anti-nucle ar factor detected 106083049 R76.8 Anticentro mere antibody pattern 108474097 R76.8 Health Concerns Section Related Observation LastModified by Organization Detai ls LastModified Time None Recorded Concern Status LastModified by Organization Details LastModified Time None Recorded Advance Directives Directive None Recorded Payers Insurance Date Sequence Insurance Name Policy Number Policy Deng Covered Member ID Deng Member ID Guarantor Name 02/14/2024 1 [employer] (MEDICARE REPLACEMENT/A DVANTAGE - PPO) Mary Coronel [id number] Mary Coronel 02/14/2024 2 [employer] [place] (MEDICARE REPLACEMENT/A DVANTAGE - HMO) Mary Coronel [id number] Mary Coronel Notes Date Note Type Note [...] last appointment for colonoscopy. Raul Kincaid PA-C [address], [place], [address], [facility] [place] [facility] [place] 05/14/2023 16:14:59 OBGyn Episode No OBEpisode recorded.
[2024-12-26 14:02] LABS: Microscopic, Urine URINE MICROSCOPIC (MICROSCOPIC)
[2024-12-26 14:22] LABS: Albumin Level 3.8 g/dl (3.5-5.0); Basophils % 0.4 % (0.1-2.0); Chloride 101 mmol/L (98-107); Hematocrit 30.2 % (37.0-47.0); Hemoglobin 9.5 g/dL (12.2-16.2); Immature Granulocytes # 0 10^3uL; Immature Granulocytes % 0 %; Lymphocytes # 0.7 K/mm3 (0.7-4.5); Mean Corpuscular HGB Conc 31.5 g/dL (31.8-35.4); Mean Corpuscular Hemoglobin 30.5 pg (27.0-31.2); Mean Corpuscular Volume 97.1 fl (81-99); Mean Platelet Volume 11.9 fl (7.4-10.4); Monocytes # 0.3 K/mm3 (0.1-1.0); Monocytes % 10.2 % (1.7-9.3); Neutrophils # 1.6 K/mm3 (1.8-7.8); Neutrophils % 63.4 % (37.0-80.0); Nucleated Red Blood Cells # 0 10^3/uL; Nucleated Red Blood Cells % 0 %; Platelet Count 65 K/mm3 (142-424); Potassium 3.9 mmoL/L (3.5-5.1); Red Blood Count 3.11 M/mm3 (4.20-5.40); Red Cell Distribution Width-SD 57.5 fL; Sodium 142 mmol/L (136-145); White Blood Count 2.5 K/mm3 (4.8-10.8)
[2024-12-26 14:23] LABS: Appearance,Urine CLEAR (Clear); Bilirubin,Urine Negative (Negative); Blood, Urine TRACE-I (Negative); Color,Urine YELLOW (Yellow); Glucose,Urine (UA) Negative (Negative); Ketones,Urine Negative (Negative); Leukocyte Esterase,Urine Negative (Negative); Nitrate,Urine Negative (Negative); Protein,Urine Negative (Negative); Urobilinogen,Urine 0.2 EU/dl (0.2)
[2024-12-26 14:25] LABS: Anion Gap 11.9 mEq/L (5-15); Blood Urea Nitrogen 57 mg/dl (7-17); Carbon Dioxide 33 mmol/L (22.0-30.0); Estimated Glomerular Filt Rate 12 ml/min (>60); GFR (African American) 14 ML/MIN (>60)
[2024-12-26 14:26] LABS: Calcium 9.1 mg/dl (8.4-10.2); Glucose 184 mg/dl (74-100); Phosphorous 4.3 mg/dl (2.5-4.5)
[2024-12-26 14:31] LABS: Creatinine,Urine Random 59 mg/dL (Not Estab.)
[2024-12-26 14:47] LABS: Bacteria,Urine 2+ /lpf; Mucus,Urine 1+ /lpf; Squamous Epithelial Cell,Urine 20-50 #/hpf (0-5)
== END 2024-12-26 23:59 | disposition home or self-care (01) ==
LOC: LAB 13:51
PROVIDERS: PCP Family Medicine; Visit Provider Internal Medicine Nephrology
DX: N18.9 Chronic kidney disease, unspecified (principal)
CPT/HCPCS: 36415; 80069; 81001; 82570; 84156; 85025; 87086

== ENCOUNTER 2024-12-31 07:14 | Outpatient (CLI) | payer MEDICARE, MEDICAID, SELFPAY ==
--- OUTSIDE RECORDS SUMMARY | 2024-12-31 07:16 | XMS_ITS | Data Portability ---
Author Organization [place] - [facility] - [place] [facility] ADMIN Address [address] [place] [address] Care Team Providers Care Senior Production Supervisor Name Role Phone SARI MIX Primary Care Provider [phone] Assessment Encounter Date Assessment Date Assessment LastModified [...] History of colonoscopy: Colonoscopy performed 01/2021 at [facility] with polypectomy (TA). 1 year repeat was recommended but she states she did not follow-up. She has a history of anal soft tissue thickening that was previously being followed by Dr. Quiñonez. 3) Nausea/abdominal pain: Continue Zofran as needed. EGD/colonoscopy scheduled. [email or web address] Not available 05/14/2023 16:14:25 Plan of Treatment Reminders Order Date Submit Date Provider Last Modified By Organization Details Last Modified Time Details Appointments None recorded. Lab CBC 2022 023 ABE [facility], [address], [address], [place], [address], 3 07:14:09 CMP, serum or plasma 2022 023 A[facility], [address], [address], [place], [address], 3 07:14:08 PT/INR 2022 023 A[facility], [address], [address], [place], [address], 3 07:14:10 afp (alpha-feto protein) tumor marker, serum or plasma 2022 023 A[facility], [address], [address], [place], [address], 3 07:14:12 JEANA (antinuclea r antibodies) screen, serum 2022 023 A[facility], [address], [address], [place], [address], 3 07:14:14 mitochondri al Ab, serum 2022 023 [email or web address] [facility], [address], [address], [place], [address], 3 08:37:53 smooth muscle Ab, serum 2022 023 A[facility], [address], [address], [place], [address], 3 07:14:11 igg, quantitativ e, serum 2022 023 A[facility], [address], [address], [place], [address], 3 07:14:15 hepatitis B surface Ab, quantitativ e, serum 2022 023 A[facility], [address], [address], [place], [address], 3 07:14:13 Referral None recorded. Procedures None recorded. Surgeries None recorded. Imaging US, liver 2022 023 [email or web address] [address], [place], [address], 15:31:08 Medication Orders Xifaxan 550 mg tablet 2022 023 [email or web address] [facility], [address] [facility] [address], [place], [place], [id number], 16:07:45 Patient TargetsNo targets recorded. Patient InstructionsNo instructions recorded. Reason for Referral None Reported. Results Created Date Observation Date Name Description Value Unit Range Abnormal Flag Note LastModifiedBy Organization Detail LastModifiedTime 05/14/2005/15/2023 COMP. METAB OLIC PANEL (14) glucose 292 mg/dL 70-99 above high normal Not Available [facility] ([facility]) [address] [facility], [place], [address], 05/16/2023 07:14:08 05/14/2005/15/2023 COMP. METAB OLIC PANEL (14) BUN 39 mg/dL 8-27 above high normal Not Available [facility] ([facility]) [address] [facility] [place], [address], 05/16/2023 07:14:08 05/14/20 23 05/15/2023 COMP. METAB OLIC PANEL (14) creatinine 1.73 mg/dL 0.57-1 .00 above high normal Not Available [facility] ([facility]) [address] [facility] [place], [address], 05/16/2023 07:14:08 05/14/20 23 05/15/2023 COMP. METAB OLIC PANEL (14) eGFR 33 mL/mi n/1.7 3 >59 below low normal Not Available [facility] ([facility]) [address] [facility] [place], [address], 05/16/2023 07:14:08 05/14/20 23 05/15/2023 COMP. METAB OLIC PANEL (14) BUN/creatini ne ratio 23 12-28 Not Available [facility] ([facility]) [address] [facility] [place], [address], 05/16/2023 07:14:08 05/14/2005/15/2023 COMP. METAB OLIC PANEL (14) sodium 143 mmol/ L 134-14 4 Not Available [facility] ([facility]) [address] [facility] [place], [address], 05/16/2023 07:14:08 05/14/20 23 05/15/2023 COMP. METAB OLIC PANEL (14) potassium 4.8 mmol/ L 3.5-5. 2 Not Available [facility] ([facility]) [address] [facility] [place], [address], 05/16/2023 07:14:08 05/14/20 23 05/15/2023 COMP. METAB OLIC PANEL (14) chloride 103 mmol/ L 96-106 Not Available [facility] ([facility]) [address] [facility] [place], [address], 05/16/2023 07:14:08 05/14/20 23 05/15/2023 COMP. METAB OLIC PANEL (14) carbon dioxide, total 28 mmol/ L 20-29 Not Available [facility] ([facility]) [address] [facility], [place], [address], 05/16/2023 07:14:08 05/14/20 23 05/15/2023 COMP. METAB OLIC PANEL (14) calcium 9.2 mg/dL 8.7-10 .3 Not Available [facility] ([facility]) [address] [facility], [place], [address], 05/16/2023 07:14:08 05/14/20 23 05/15/2023 COMP. METAB OLIC PANEL (14) protein, total 7.4 g/dL 6.0-8. 5 Not Available [facility] ([facility]) [address] [facility], [place], [address], 05/16/2023 07:14:08 05/14/20 23 05/15/2023 COMP. METAB OLIC PANEL (14) albumin 4.1 g/dL 3.9-4. 9 Not Available [facility] ([facility]) [address] [facility], [place], [address], 05/16/2023 07:14:08 05/14/20 23 05/15/2023 COMP. METAB OLIC PANEL (14) globulin, total 3.3 g/dL 1.5-4. 5 Not Available [facility] ([facility]) [address] [facility], [place], [address], 05/16/2023 07:14:08 05/14/20 23 05/15/2023 COMP. METAB OLIC PANEL (14) A/G ratio 1.2 1.2-2. 2 Not Available [facility] ([facility]) [address] [facility], [place], [address], 05/16/2023 07:14:08 05/14/20 23 05/15/2023 COMP. METAB OLIC PANEL (14) bilirubin, total 0.7 mg/dL 0.0-1. 2 Not Available [facility] ([facility]) [address] [facility], [place], [address], 05/16/2023 07:14:08 05/14/20 23 05/15/2023 COMP. METAB OLIC PANEL (14) alkaline phosphatase 144 IU/L 44-121 above high normal Not Available [facility] ([facility]) [address] [facility], [place], [address], 05/16/2023 07:14:08 05/14/2005/15/2023 COMP. METAB OLIC PANEL (14) AST (SGOT) 39 IU/L 0-40 Not Available [facility] ([facility]) [address] [facility], [place], [address], 05/16/2023 07:14:08 05/14/2005/15/2023 COMP. METAB OLIC PANEL (14) ALT (SGPT) 27 IU/L 0-32 Not Available [facility] ([facility]) [address] [facility], [place], [address], 05/16/2023 07:14:08 05/14/2005/15/2023 CBC, PLATE LET, NO DIFFE RENTI AL WBC 3.8 x10e3 /uL 3.4-10 .8 Not Available [facility] ([facility]) [address] [facility], [place], [address], 05/16/2023 07:14:09 05/14/2005/15/2023 CBC, PLATE LET, NO DIFFE RENTI AL RBC 3.98 x10e6 /uL 3.77-5 .28 Not Available [facility] ([facility]) [address] [facility], [place], [address], 05/16/2023 07:14:09 05/14/2005/15/2023 CBC, PLATE LET, NO DIFFE RENTI AL hemoglobin 12.9 g/dL 11.1-1 5.9 Not Available [facility] ([facility]) [address] [facility], [place], [address], 05/16/2023 07:14:09 05/14/2005/15/2023 CBC, PLATE LET, NO DIFFE RENTI AL hematocrit 39.7 % 34.0-4 6.6 Not Available [facility] ([facility]) [address] [facility], [place], [address], 05/16/2023 07:14:09 05/14/2005/15/2023 CBC, PLATE LET, NO DIFFE RENTI AL MCV 100 fL 79-97 above high normal Not Available [facility] ([facility]) [address] [facility], [place], [address], 05/16/2023 07:14:09 05/14/2005/15/2023 CBC, PLATE LET, NO DIFFE RENTI AL MCH 32.4 pg 26.6-3 3.0 Not Available [facility] ([facility]) [address] [facility], [place], [address], 05/16/2023 07:14:09 05/14/2005/15/2023 CBC, PLATE LET, NO DIFFE RENTI AL MCHC 32.5 g/dL 31.5-3 5.7 Not Available [facility] ([facility]) [address] [place], [address], 05/16/2023 07:14:09 05/14/2005/15/2023 CBC, PLATE LET, NO DIFFE RENTI AL RDW 14.1 % 11.7-1 5.4 Not Available [facility] ([facility]) [address] [facility], [place], [address], 05/16/2023 07:14:09 05/14/2005/15/2023 CBC, PLATE LET, NO DIFFE RENTI AL platelets 81 x10e3 /uL 150-45 0 alert low Plate let count verif ied by exami natio n of perip heral blood smear . Not Available [facility] ([facility]) [address] [facility], [place], [address], 05/16/2023 07:14:09 05/14/2005/15/2023 CBC, PLATE LET, NO DIFFE RENTI AL hematology comments: NOTE: Verif ied by micro scopi c exami natio n. Not Available [facility] ([facility]) [address] [facility], [place], [address], 05/16/2023 07:14:09 05/14/2005/15/2023 CBC, PLATE LET, NO DIFFE RENTI AL NRBC EPIC CADENCE ANALYST Not Available [facility] ([facility]) [address] [facility], [place], [address], 05/16/2023 07:14:09 05/14/2005/15/2023 PROTH ROMBI N TIME [...] range 2.5 - 3.5 Not Available [facility] ([facility]) [address] [facility], [place], [address], 05/16/2023 07:14:10 05/14/2005/15/2023 PROTH ROMBI N TIME (PT), SERIA L prothrombin time 11.9 sec 9.1-12 .0 Not Available [facility] ([facility]) [address] [facility], [place], [address], 05/16/2023 07:14:10 05/14/2005/15/2023 PROTH ROMBI N TIME (PT), SERIA L pdf . Not Available [facility] ([facility]) [address] [place], [address], 05/16/2023 07:14:10 05/14/2005/15/2023 ANTI- AIXA H MUSCL [...] bilia ry cirrh osis. Not Available [facility] ([facility]) [address] [place], [address], 05/16/2023 07:14:11 05/14/2005/15/2023 ANTI- AIXA H MUSCL E/TAHIR OCHON D. mitochondria l (M2) antibody <20.0 units 0.0-20 .0 Negat marnie 0.0 - 20.0 Equiv ocal 20.1 - 24.9 Posit marnie >24.9 Mitoc hondr ial (M2) Antib odies are found in 90-96 % of patie nts with prima ry bilia ry cirrh osis. Not Available [facility] ([facility]) [address] [place], [address], 05/16/2023 07:14:11 05/14/2005/15/2023 AFP, SERUM , TUMOR [...] pregn ant femal es. Not Available [facility] ([facility]) [address] [place], [address], 05/16/2023 07:14:12 05/14/2005/15/2023 HEPAT ITIS B SURF AB QUANT hepatitis B surf Ab quant <3.1 mIU/m L immuni ty>9.9 below low normal Statu s of Immun ity Anti- HBs Level ----- ----- ----- --- ----- ----- ---- Incon siste nt with Immun ity 0.0 - 9.9 Consi stent with Immun ity >9.9 Not Available [facility] ([facility]) [address] [place], [address], 05/16/2023 07:14:13 05/14/2005/15/2023 JEANA W/REF KISHOR IF POSIT MARNIE JEANA direct POSITI VE negati ve abnormal Not Available [facility] ([facility]) [address] [place], [address], 05/16/2023 07:14:14 05/14/2005/15/2023 JEANA W/REF KISHOR IF POSIT MARNIE anti-DNA (ds) Ab qn <1 IU/mL 0-9 Negat marnie <5 Equiv ocal 5 - 9 Posit marnie >9 Not Available [facility] ([facility]) [address] [place], [address], 05/16/2023 07:14:14 05/14/2005/15/2023 JEANA W/REF KISHOR IF POSIT MARNIE fine unhairer antibodies <0.2 ai 0.0-0. 9 Not Available [facility] ([facility]) [address] [place], [address], 05/16/2023 07:14:14 05/14/2005/15/2023 JEANA W/REF KISHOR IF POSIT MARNIE perez antibodies <0.2 ai 0.0-0. 9 Not Available [facility] ([facility]) [address] [place], [address], 05/16/2023 07:14:14 05/14/2005/15/2023 JEANA W/REF KISHOR IF POSIT MARNIE antisclerode rma-70 antibodies 0.3 ai 0.0-0. 9 Not Available [facility] ([facility]) [address] [place], [address], 05/16/2023 07:14:14 05/14/2005/15/2023 JEANA W/REF KISHOR IF POSIT MARNIE sjogren's anti-ss-A <0.2 ai 0.0-0. 9 Not Available [facility] ([facility]) [address] [place], [address], 05/16/2023 07:14:14 05/14/2005/15/2023 JEANA W/REF KISHOR IF POSIT MARNIE sjogren's anti-ss-B <0.2 ai 0.0-0. 9 Not Available [facility] ([facility]) [address] [place], [address], 05/16/2023 07:14:14 05/14/2005/15/2023 JEANA W/REF KISHOR IF POSIT MARNIE antichromati n antibodies <0.2 ai 0.0-0. 9 Not Available [facility] ([facility]) [address] [place], [address], 05/16/2023 07:14:14 05/14/2005/15/2023 JEANA W/REF KISHOR IF POSIT MARNIE anti-trisha-1 <0.2 ai 0.0-0. 9 Not Available [facility] ([facility]) [address] [place], [address], 05/16/2023 07:14:14 05/14/2005/15/2023 JEANA W/REF KISHOR IF POSIT MARNIE anti-centrom ere B antibodies 2.7 ai 0.0-0. 9 above high normal Not Available [facility] ([facility]) [address] [facility], [place], [address], 05/16/2023 07:14:14 05/14/2005/16/2023 JEANA W/REF KISHOR IF POSIT MARNIE complement C3, serum 109 mg/dL 82-167 Not Available [facility] ([facility]) [address] [facility], [place], [address], 05/16/2023 07:14:14 05/14/2005/16/2023 JEANA W/REF KISHOR IF POSIT MARNIE complement C4, serum 20 mg/dL 12-38 Not Available [facility] ([facility]) [address] [facility], [place], [address], 05/16/2023 07:14:14 05/14/2005/15/2023 IMMUN OGLOB ULIN G, QN, SERUM immunoglobul in g, qn, serum 1562 mg/dL 586-16 02 Not Available [facility] ([facility]) [address] [facility], [place], [address], 05/16/2023 07:14:15 06/06/2006/06/2023 US, liver No observ ation record ed. [facility] [address], [place], [address], 06/13/2023 12:55:07 Result Notes None recorded. Problems Name Problem SNOMED Code Status Onset Date Resolution Date Notes Provider Name and Address Organization Details Recorded Time Stage 3 hepatic fibrosis 3592766390781 9109 Active 2022 Raul Kincaid PA-C [address], [place], [address] , [facility] & [place] 04/13/202 3 08:26:45 Anticentro mere antibody pattern 891438991 Active 2022 Raul Kincaid PA-C [address], [place], [place], [address] [place] [address] , [facility] & [place] 3 08:27:15 Metabolic dysfunctio n-associat ed steatohepa titis 775985637 Active 2022 Raul Kincaid PA-C [address], [place] [address] , [facility] & [place] 3 08:28:41 Hepatic encephalop athy 41870549 Active 2022 Raul Kincaid PA-C [address], [place] [address] , [facility] & [place] 3 10:58:50 Anti-nucle ar factor detected 047920797 Active 2022 Raul Kincaid PA-C [address], [place] [address] , [facility] & [place] 3 16:09:02 Problem Notes None recorded. Medical [...] Address Organization Details Last Updated DateTime 3 [address].9 4 g 97.4 [degF] 32.6 kg/m2 167.64 cm 84 /min 91 /min 98 % 98 % 131 mm[Hg] 72 mm[Hg] Luz Maria Pike [facility] [place] 10:32:47 Social History Question Answer Notes LastModified by [place] [employer] Details LastModified Time Tobacco Smoking Status Never Smoker Luz Maria ayala, [facility] [place] 05/14/2023 10:31:56 What Is Your Level Of Caffeine Consumption? Moderate [email or web address] Information not available 05/14/2023 Sex: Unknown Functional Status Question Answer Note LastModified by Organizat ion Details LastModified Time Do you use any illicit or recreational drugs? No [email or web address] Information not available 05/14/2023 Do you or have you ever used any other forms of tobacco or nicotine? No [email or web address] Information not available 05/14/2023 What is your level of alcohol consumption? Occasional [email or web address] Information not available 05/14/2023 Mental Status None [...] SNOMED-CT Code Diagnosis ICD10 Code Diagnosis Note [id number] Raul Kincaid PA-C [facility] [address] [address] 05/14/2023 10:00:22 05/14/2023 11:33:43 Stage 3 hepatic fibrosis 9339897342 6659396 K74.02 Hepatic encephalopathy 61710481 K76.82 History of polyp of colon 790258064 Z86.010 Anti-nucle ar factor detected 019409745 R76.8 Anticentro mere antibody pattern 467913542 R76.8 Health Concerns Section Related Observation LastModified by Organization Detai ls LastModified Time None Recorded Concern Status LastModified by Organization Details LastModified Time None Recorded Advance Directives Directive None Recorded Payers Insurance Date Sequence Insurance Name Policy Number Policy Deng Covered Member ID Deng Member ID Guarantor Name 02/14/2024 1 [employer] (MEDICARE REPLACEMENT/A DVANTAGE - PPO) Mary Coronel [id number] Mary Coronel 02/14/2024 2 [employer] [place] ([place]IC[place] DVANTAGE - HMO) Mary Coronel [id number] Mary Coronel Notes Date Note Type Note [...] last appointment for colonoscopy. Raul Kincaid PA-C [address], [place], [address], [facility] [place] [facility] [place] 05/14/2023 16:14:59 OBGyn Episode No OBEpisode recorded.
--- NOTE | 2024-12-31 08:00 | US_ITS ---
FINAL REPORT CLINICAL HISTORY: .pt sched for para-- nott enough fluid for para FINDINGS: ULTRASOUND LIMITED HISTORY:Ascites ATTENDING PHYSICIAN: Dr. Myles PHYSICIAN STAFF TECHNOLOGIST: Gabriel Velasco PA-C FINDINGS: After the patient was brought to the ultrasound suite for paracentesis, only a small amount of ascitic fluid was identified. Although this would have been enough to sample for labs it was of insignificant amount to be therapeutically beneficial. The patient elected not to proceed with the procedure at this time. IMPRESSION: Ultrasound demonstrating only a small amount of ascitic fluid. The patient elected not to proceed with the procedure at this time. Reviewed, Interpreted and Dictated by Lizzie Myles MD Transcribed by SKIP [facility] Authenticated and [facility]
== END 2024-12-31 23:59 | disposition home or self-care (01) ==
LOC: RAD 07:14
PROVIDERS: PCP Family Medicine; Visit Provider Family Medicine
DX: R18.8 Other ascites (principal)
CPT/HCPCS: 76705

== ENCOUNTER 2025-01-03 13:06 | Outpatient (CLI) | payer MEDICARE, MEDICAID, SELFPAY ==
--- OUTSIDE RECORDS SUMMARY | 2018-11-16 06:00 | XMS_ITS | Continuity of Care Document ---
Author Organization [facility] Address [address] [place] [phone] Phone Care Team Providers Care Shot Peen Operator Name Role Phone Dane Pink MD Unavailable [...] Provider Providers Copied on Encounter Connor [place] [facility], [address] [place] [address], [id number], tel:[phone] JENNIFER Torres [place] No Information 9 Apryl Vela. [address] [place] [address], [id number] , . tel:[phone] OFFICE/OUTPA TIENT VISIT, EST Connor [place] [facility], [address] [place] [address], [address] [place] [address], tel:[phone] [place] inflammation ck OS (chief complaint) Iritis, recurrent, left eye 9 Apryl Vela. [address] [place] [address], [address] [place] [address] , . tel:[phone] Referring Provider: Self Referred Jose C Connor [place] [facility], [address] [place] [address], [id number], tel:[phone] JENNIFER Torres [place] Anterior Seg ck (chief complaint) Iritis, recurrent, left eye 9 Apryl Vela. [address] [place] [address], [id number] , . tel:[phone] Referring Provider: Maria Teresa Santos, [employer] [address] [place] [address], [facility]. tel:[phone] Family History Family Member Type Diagnosis Age At Onset Problem (finding) Family history of Diabe reynold mellitus Problem (finding) Family history of Cardi ovascular disease Problem (finding) Family history of glauc haroon Payers Payer name Insurance type Covered libertarian ID Authoriza tion(s) Medicare [facility] [id number] Social History Type Description Quantity Date Captured [...]
--- OUTSIDE RECORDS SUMMARY | 2024-11-30 01:43 | XMS_ITS | Encounter Summary ---
Author Organization [facility] [employer] Address [address] [place] [address] Care Team Providers Care Schedule Supervisor Name Role Phone [facility] Connection, Find-A-Doc Primary Care Provider Provider, Not In System Primary Care Provider Un available Reason for Visit * Auth/Cert (Routine) Specialty Diagnoses / Procedures Referred By Mayela may Referred To Contact Diagnoses Anasarca ACUTE RENAL FAILURE [address] Medical Telemetry Unit [address] [place] [phone] Phone: tel: fax: [address] Medical Telemetry Unit 1 [place] [address] Phone: tel: fax: Referral ID Status Reason Start Date Expiration Date Visits Re quested Visits Authorized [id number] 1 1 Encounter Details Date Type Department Care Team (Late st Contact Info) Description 11/30/2024 1:43 AM EDT - 12/14/2024 5:30 PM EDT Hospital Encounter [address] Medical Telemetry Unit 1 [place] [address] Albert Garcia MD [address] [place] [address] Timothy Bai MD [address] [place], [place] [id number] Mary Carmen Mcfadden MD [address] [facility] [address] [place], [place] [id number] Venkatesh Stephen MD [address] [facility] [address] [place], [place] [id number] David Coffman PA-C [address] [place] [address] Huey Hurtado MD [address] [facility] [address] [place], [place] [id number] Keren (Primary Dx); Anasarca Discharge Disposition: Home [...] Do you speak a language other than [place] at [facility]? No 11/30/2024 Do you want help with [...] Coffman PA-C - 12/14/2024 12:42 PM EDT [facility] Discharge Summary Patient Name: Mary Coronel : 1960 Date of Admission: 11/30/2024 Date of Discharge: 12/14/2024 Primary Care Physician: Not In System Provider Hospital Course Health Care Coordinator(s): Discharge Diagnosis: Anasarca Cirrhosis Paroxysmal atrial fibrillation/nonsustained [...] diabetes, CKD, CAD, arthritis. Patient presented to [facility] with swollen abdomen, abdominal discomfort and bilateral lower extremity pitting edema.Patient's BUN/creatinine elevated, and patient subsequently transferred to [facility] for hepatorenal syndrome evaluation. Admits to 4 [...] days. Patient's niece forced patient to visit [facility] emergency room today she really [...] a bone marrow biopsy which was unremarkable. Seaboard that she had anemia of chronic disease [...] These medications were sent to [facility] [address] [place] [address] [address] amiodarone 200 MG tablet ergocalciferol 1,250 mcg (50,000 unit) capsule lactulose 10 gram/15 mL solution pantoprazole 40 MG tablet rifAXIMin 550 mg These [facility] [address] [address] metOLazone 2.5 MG tablet tamsulosin 0.4 mg [...] Contact information for follow-up [facility] [address] [facility] [id number] Next Steps: Go in 2 week(s) Instructions: Nephrology follow up 12/30/24 @8:45am Follow up with NAL in 1-2 weeks with renal function panel Primary care provider (PCP) Next Steps: Follow up Monika Hernandez APRN [facility] Primary Care [address] [place] [id number] Next Steps: Go in 1 week(s) Instructions: PCP follow up 12/22/24 @3:00pm Time Spent on Discharge: I spent 35 minutes in hkch-od-ntif time with the patient and nursing staffconcerning [...] Brad Coffman PA-C 12/14/2024, 12:42 PM Hospitalist [facility] * Mary Carmen Mcfadden MD - [...] diabetes, CKD, CAD, arthritis. Patient presented to [facility] with swollen abdomen, abdominal discomfort and bilateral lower extremity pitting edema.Patient's BUN/creatinine elevated, and patient subsequently transferred to [facility] for hepatorenal syndrome evaluation. Admits to 4 [...] days. Patient's niece forced patient to visit [facility] emergency room today she really [...] These medications were sent to [facility] at [facility] [address] [address] amiodarone 200 MG tablet amoxicillin-clavulanate 500-125 mg [...] 2-week Nephrology 1 to 2-week Disposition [facility] Time Spent: 45 min Electronically signed by Mary Carmen Mcfadden MD, 12/07/24, 10:20 AM EDT documented in this encounter Medications at Time of Discharge albuterol 90 mcg/actuation inhaler Inhale 1 puff by mouth every 6 (six) hours as needed for wheezing. amiodarone (PACERONE) 200 MG tablet Take 1 tablet (200 mg total) by mouth daily for 30 days. 30 tablet 12/07/2024 5 ammonium lactate (AMLACTIN) 12 % cream Apply 1 g topically as needed for dry skin. atorvastatin (LIPITOR) 20 MG tablet Take 1 tablet (20 mg total) by mouth nightly. bumetanide (BUMEX) 2 MG tablet Take 1 tablet (2 mg total) by mouth 2 (two) times daily. 60 tablet 12/14/2024 ergocalciferol (DRISDOL) 1,250 mcg (50,000 unit) capsule Take 1 capsule (50,000 Units total) by mouth every 7 days for 30 days. 4 capsule 12/07/2024 5 HYDROcodone-acet aminophen (NORCO) 10-325 mg per tablet [...] mouth daily as needed. 30 tablet 12/14/2024 pantoprazole (PROTONIX) 40 MG tablet Take 1 tablet (40 mg total) by mouth 2 (two) times daily for 30 days. 60 tablet 12/06/2024 rifAXIMin (XIFAXAN) 550 mg Take 1 tablet (550 mg total) by mouth 2 (two) times daily. 60 tablet 12/06/2024 spironolactone (ALDACTONE) 25 MG tablet Take 0.5 tablets (12.5 mg total) by mouth daily. 15 tablet 12/14/2024 tamsulosin (FLOMAX) 0.4 mg cap 24 hr capsule Take 1 capsule (0.4 mg total) by mouth every evening for 30 days. 30 capsule 12/14/2024 gabapentin (NEURONTIN) 100 MG capsule Take 1 capsule (100 mg total) by mouth 3 (three) times daily for 3 days. Max Daily Amount: 300 mg 9 capsule 12/14/2024 5 documented as of this [...] renal function - No emergent need of HEAD ATHLETIC TRAINER/STRENGTH COACH - Monitor H/H and transfuse for Hgb [...] additional home health needs. Patient/family provided with [facility] approved choice list and Patient choice [...] Score Raw score=12 t-Scale score=35.33 Standard error=3.08 [facility] 0-100%=68.66% MDC=4.72 A raw score of >= [...] Hematology/oncology following. Acute hypoxemic/hypercapnic respiratory failure - Seaboard to be due to pulmonary edema from [...] disposition (home, SNF/Rehab, etc): TBD Signed: Brad Coffamn PA-C [facility] Hospitalist * Rea Bishop, ANALISA - [...] intakes reported. Pt states she ate well seating captain but hasn't had much of an appetite for past 4 days. Requested chicken noodle soup for lunch. Agreeable to ONS TID. Past Medical/Surgical History: Past Medical History: Diagnosis Date Cirrhosis, non-alcoholic (HCC) Diabetes mellitus (HCC) Hypertension Past Surgical History: Procedure Laterality Date ESOPHAGOGASTRODUODENOSCOPY (EGD),REMOVAL FOREIGN BODY N/A 12/01/2024 Procedure: EGD, WITH FOREIGN BODY REMOVAL; Surgeon: Scott Daley MD; Location: [facility]; Service: Gastroenterology; Laterality: N/A; Vitals [...] with severity: none Energy intake hx: good seating captain (minimal for past 3-4 days) Wt [...] history as below. She initially presented to [facility] with swollen abdomen, abdominal discomfort, and bilateral lower extremity pain. Her creatinine was elevated and as a result, she was transferred to [facility] for he patorenal syndrome. Upon arrival [...] BODY REMOVAL; Surgeon: Scott Daley MD; Location: [facility]; Service: Gastroenterology; Laterality: N/A; Allergies: [...] POC-GLUCOSE 127 (H) 70 - 110 mg/dL Raisin Washer [id number] Glucose, Nova Meter Status: Abnormal Collection Time: 12/13/24 11:15 AM Result Value Ref Range POC-GLUCOSE 221 (H) 70 - 110 mg/dL Raisin Washer [id number] Glucose, Nova Meter Status: Abnormal Collection Time: 12/13/24 4:24 PM Result Value Ref Range POC-GLUCOSE 156 (H) 70 - 110 mg/dL Raisin Washer [id number] Glucose, Nova Meter Status: Abnormal Collection Time: 12/13/24 8:20 PM Result Value Ref Range POC-GLUCOSE 186 (H) 70 - 110 mg/dL Raisin Washer [id number] Radiology Radiology Results (last day) No results found for the last 24 hours. Microbiology: Microbiology Results (last 7 days) Procedure Component Value Units Date/Time Fungus Culture W/ROSA MARIA Or Nimisha Ink [[id number]] Collected: 11/30/241602 Order Status: Completed Specimen: Peritoneal Fluid from Body Fluid Updated: 12/07/24 170 Result No fungus isolated at 1 week. ROSA MARIA Prep No fungal elements seen Narrative: Specimen Description: peritoneal fluid AFB Culture And Stain [[id number]] Collected: 11/30/241602 Order Status: Completed Specimen: Peritoneal [...] to continue with albumin/diuretics no indication for HEAD ATHLETIC TRAINER/STRENGTH COACH No significant pleural effusion for thoracentesis If needed repeat chest x-ray. Otherwise continue diuresis Pulmonary will sign off. Please call for any issues Case discussed during round. I have personally evaluated the patient and performed a jfxd-bw-[id number] diagnostic evaluation on this patient; I have reviewed history, performed physical examination, reviewed laboratory studies. , andreviewed images independent of radiologist. I have actively directed the medical care, formulated assessemnt and plan of care. Patient requires a high complexity of decision making for assessment. Voice geriatric nurse practitioner technology ([employer]) is used for dictation of this note and sound-alike words might be erroneously placed despite reviewing the note for accuracy.Errors in dictation may reflect use of voice recognition software and not all errors in geriatric nurse practitioner may have been detectedprior to signing * [...] renal function - No emergent need of HEAD ATHLETIC TRAINER/STRENGTH COACH - Monitor H/H and transfuse for Hgb less than 7.0 Follow up with NAL in 1-2 weeks with renal function panel Hema Cervantes MD 12/13/24 12:15 PM * Jaydemalinda Hansen, FORESTRY FIRE AIDE - 12/13/2024 10:28 AM EDT Images from [...] admitted on: 11/30/2024 1:43 AM. presented to [facility] with swollen abdomen, abdominal discomfort and bilateral lower extremity pitting edema. Patient's BUN/creatinine elevated, and patient subsequently transferred to [facility] for hepatorenal syndrome evaluation. Admits to 4 [...] Hema Cervantes MD 2 mg at 12/12/24 214 dextrose 50% (D50W) injection 25 g 25 [...] Culture And Stain AFB Culture And Stain [facility] Non-Tube Wrapper Cytology [facility] Non-Tube Wrapper Cytology DIFFERENTIAL, BODY FLUID DIFFERENTIAL, BODY FLUID Body Fluid/CSF - Path Review () Body Fluid/CSF - Path Review () [facility] BONE MARROW SMEAR, ASPIRATION, AND STAIN [facility] BONE MARROW SMEAR, ASPIRATION, AND STAIN [...] BODY REMOVAL; Surgeon: Scott Daley MD; Location: [facility]; Service: Gastroenterology; Laterality: N/A; Allergies: [...] Normal range of motion. Integumentary: Warm, Dry, Exline. Neurologic: No obvious focal deficit Psychiatric: Cooperative, Appropriate mood & affect. Labs, Imaging, and Other Studies: Echo Results (last 7 days) Procedure Component Value Units Date/Time ECHO COMPLETE (DOPPLER / COLOR) W OR WO CONTRAST [[id number]] Collected: 11/30/24 0725 Order Status: Completed Updated: 11/30/24 1046 Narrative: TRANSTHORACIC ECHOCARDIOGRAPHY REPORT Demographics Patient Name: RIN JONES : 1960 Age: 64 year(s) Corporate ID Number: [id number] Gender Female Ramp Attendant: Giovanna Rock Height: 67 inches [facility] Referring Physician: HUEY HURTADO Weight: 225 pounds Interpreting JESSICA RAYMOND MD BMI: 35.24 kg/m^2 Physician: Date of Service: 11/30/2024 Blood Pressure: 118/59 mmHg Room Number: 579 Type of Study: TTE procedure: ECHO COMPLETE (DOPPLER / COLOR) W OR WO CONTRAST. Patient Status: Routine IP [facility] History/Tech Notes: Indication: [...] .99 LV length: 8.51 cm ml Volume ymazlthu94.96 ml LVOT diameter: 1.79 cm Normal sized [...] Valve TR velocity: 2.51 m/s TR gradient: 25.56125 mmHg Estimated RAP: 3 mmHg RVSP: 28.12 [...] (DOPPLER / COLOR) W OR WO CONTRAST [[id number]] Collected: 11/30/24724 Order Status: Completed Updated: 11/30/24 104 Narrative: TRANSTHORACIC ECHOCARDIOGRAPHY REPORT Demographics Patient Name: RIN JONES : 1960 Age: 64 year(s) Corporate ID Number: [id number] Gender Female Ramp Attendant: Giovanna Rock Height: 67 inches [facility] Referring Physician: HUEY HURTADO Weight: 225 pounds Interpreting JESSICA RAYMOND MD BMI: 35.24 kg/m^2 Physician: Date of Service: 11/30/2024 Blood Pressure: 118/59 mmHg Room Number: 579 Type of Study: TTE procedure: ECHO COMPLETE (DOPPLER / COLOR) W OR WO CONTRAST. Patient Status: Routine IP [facility]quate [facility] History/Tech Notes: Indication: [...] .99 LV length: 8.51 cm ml Volume ztkbwijj56.96 ml LVOT diameter: 1.79 cm Normal sized [...] Valve TR velocity: 2.51 m/s TR gradient: 25.71408 mmHg Estimated RAP: 3 mmHg RVSP: 28.12 [...] imaging. Assessment and Plan: *Paroxysmal Atrial Fib [id number] of 3 to 4 also have some [...] Patient cannot take anticoagulation for A-fib despite [id number] because of multiple issue including GI bleeding [...] EDTSummary: MANGO Updates - [facility] Pending Discharge Plan Progress Note Case Management received call from Vesna Gibson (phone # [phone]) school admissions representative with [facility] requesting notes from weekend. MANGO faxed weekend notes via [employer] to Ez Gibson to fax # [phone]. Patient will require a precert if a bed is offered. Update, 12/13, 3:07 pm Patient and family's first choice, [facility] due to not being able to meet and accommodate patient's clinical needs. No information regarding how. Update 3:45 pm - Per facility's admission creative services manager, patient is requiring BiPaP 'too much' [...] purposes. CM has updated treatment team via [employer] chat that are signed into patient's chart on 12/13 - QUIQUE, bedside RN, bedside MACHINE SWEEPER BRUSH MAKER, PT, and OT. Patient has other offers from the following: [facility] and [facility] - [place], [place]; offered bed prior to [employer] Or; follow up with [facility] via [place], [place] KENNEY Zaragoza * Norm Cameron MD - 12/12/2024 8:47 PM EDT EP progress note Patient Name: Mary Coronel Admission Date: 11/30/2024 Primary Care Provider: JACKIE Find-a-Doc Chief Complaint/Reason for Consult: No chief complaint on file. History of Present Illness: Mary Coronel is a 64 y.o. female, admitted on: 11/30/2024 1:43 AM. presented to [facility] with swollen abdomen, abdominal discomfort and bilateral lower extremity pitting edema. Patient's BUN/creatinine elevated, and patient subsequently transferred to [facility] for hepatorenal syndrome evaluation. Admits to 4 [...] g 25 g intravenous Q15 Min PRN Huye Hurtado MD ergocalciferol (DRISDOL) capsule 50,000 Units [...] Culture And Stain AFB Culture And Stain [facility] Non-Tube Wrapper Cytology [facility] Non-Tube Wrapper Cytology DIFFERENTIAL, BODY FLUID DIFFERENTIAL, BODY FLUID Body Fluid/CSF - Path Review () Body Fluid/CSF - Path Review () [facility] BONE MARROW SMEAR, ASPIRATION, AND STAIN [facility] BONE MARROW SMEAR, ASPIRATION, AND STAIN [...] BODY REMOVAL; Surgeon: Scott Daley MD; Location: [facility]; Service: Gastroenterology; Laterality: N/A; Allergies: [...] Normal range of motion. Integumentary: Warm, Dry, Exline. Neurologic: No obvious focal deficit Psychiatric: Cooperative, Appropriate mood & affect. Labs, Imaging, and Other Studies: Echo Results (last 7 days) Procedure Component Value Units Date/Time ECHO COMPLETE (DOPPLER / COLOR) W OR WO CONTRAST [[id number]] Collected: 11/30/24724 Order Status: Completed Updated: 11/30/24 1046 Narrative: TRANSTHORACIC ECHOCARDIOGRAPHY REPORT Demographics Patient Name: RIN JONES : 1960 Age: 64 year(s) Corporate ID Number: [id number] Gender Female Ramp Attendant: Giovanna Rock Height: 67 inches [facility] Referring Physician: HUEY HURTADO Weight: 225 pounds Interpreting JESSICA RAYMOND MD BMI: 35.24 kg/m^2 Physician: Date of Service: 11/30/2024 Blood Pressure: 118/59 mmHg Room Number: 579 Type of Study: TTE procedure: ECHO COMPLETE (DOPPLER / COLOR) W OR WO CONTRAST. Patient Status: Routine IP Study [facility] Quality: Adequate visualization History/Tech Notes: Indication: [...] 1.35 m/s E/A ratio: 0.97 m/s Volume jovpegtlg241.99 LV length: 8.51 cm ml Volume gegihyhw84.96 ml LVOT diameter: 1.79 cm Normal sized [...] Valve TR velocity: 2.51 m/s TR gradient: 25.06683 mmHg Estimated RAP: 3 mmHg RVSP: 28.12 [...] including malabsorption, drug interactions, and alcoholic hepatitis. [employer] has become aware of sulfasalazine and sulfapyridine [...] (DOPPLER / COLOR) W OR WO CONTRAST [[id number]] Collected: 11/30/2425 Order Status: Completed Updated: 11/30/24 104 Narrative: TRANSTHORACIC ECHOCARDIOGRAPHY REPORT Demographics Patient Name: RIN JONES : 1960 Age: 64 year(s) Corporate ID Number: [id number] Gender Female Ramp Attendant: Giovanna Rock Height: 67 inches [facility] Referring Physician: HUEY HURTADO Weight: 225 pounds Interpreting JESSICA RAYMOND MD BMI: 35.24 kg/m^2 Physician: Date of Service: 11/30/2024 Blood Pressure: 118/59 mmHg Room Number: 579 Type of Study: TTE procedure: ECHO COMPLETE (DOPPLER / COLOR) W OR WO CONTRAST. Patient Status: Routine IP Study [facility] Quality: Adequate visualization History/Tech Notes: Indication: [...] 1.35 m/s E/A ratio: 0.97 m/s Volume xpmmwiqsc810.99 LV length: 8.51 cm ml Volume aeosijyy00.96 ml LVOT diameter: 1.79 cm Normal sized [...] Valve TR velocity: 2.51 m/s TR gradient: 25.38317 mmHg Estimated RAP: 3 mmHg RVSP: 28.12 [...] imaging. Assessment and Plan: *Paroxysmal Atrial Fib [id number] of 3 to 4 also have some [...] Patient cannot take anticoagulation for A-fib despite [id number] because of multiple issue including GI bleeding [...] renal function - No emergent need of HEAD ATHLETIC TRAINER/STRENGTH COACH - Monitor H/H and transfuse for Hgb [...] Hematology/oncology following. Acute hypoxemic/hypercapnic respiratory failure - Seaboard to be due to pulmonary edema from [...] Hematology/oncology following. Acute hypoxemic/hypercapnic respiratory failure - [place]aboard to be due to pulmonary edema from [...] SNF/Rehab, etc): TBD Signed: Brad Coffman PA-C [facility] Hospitalist * Hema Cervantes MD - [...] renal function - No emergent need of HEAD ATHLETIC TRAINER/STRENGTH COACH - Monitor H/H and transfuse for Hgb [...] BODY REMOVAL; Surgeon: Scott Daley MD; Location: [facility]; Service: Gastroenterology; Laterality: N/A; General Visit type: Treatment Approved by: Nurse Metzger Patient disposition upon entry: Patient verified by name, Patient verified by date of , Supinein bed Co-treated by: FORESTRY FIRE AIDE Assisted by: assistant professor of business Precautions Weightbearing status: No restrictions Precautions: Fall [...] had BM and pt returned to EOB. TRACK TEMPLATE MAKER entered room to assist. Pt was able [...] - 2:54 PM EDT Cosigned by Alberto Love, PT at 12/15/2024 10:54 AM EDT Associated [...] Mcgill this morning via phone. Family prefers [facility] ([facility] [place] [facility] as they live 10-20minutes away from facility. JOSE MANUEL/MANGO contacted school admissions representative via text, number provided by family, phone # [phone]. farhan Astorga, fax # [phone]. CM sent updated referral. Patient will need precert. Family, sister Jojo will be able to transport at discharge, but will been 24 hour notice to be able to transport to facility. CM plan is SNF/rehab possible early next week pending medical readiness, and precert. Update 3:27 pm - updated PT and OT notes faxed to [facility] KENNEY Zaragoza * Hema [...] renal function - No emergent need of HEAD ATHLETIC TRAINER/STRENGTH COACH - Monitor H/H and transfuse for Hgb [...] POC-GLUCOSE 162 (H) 70 - 110 mg/dL Raisin Washer [id number] ABG Status: Abnormal Collection Time: 12/10/24 6:42 [...] ARTERIAL 8.5 (L) 12.0 - 18.0 g/dL [facility] COLLECTION SITE Left Radial Arterial Puncture [...] POC-GLUCOSE 195 (H) 70 - 110 mg/dL Raisin Washer [id number] Glucose, Nova Meter Status: Abnormal Collection Time: 12/10/24 6:32 PM Result Value Ref Range POC-GLUCOSE 235 (H) 70 - 110 mg/dL Raisin Washer [id number] Glucose, Nova Meter Status: Abnormal Collection Time: 12/10/24 7:38 PM Result Value Ref Range POC-GLUCOSE 201 (H) 70 - 110 mg/dL Raisin Washer [id number] US paracentesis Narrative: ULTRASOUND-GUIDED PARACENTESIS HISTORY: Ascites. ATTENDING PHYSICIAN: Dr. Haseeb Gil PHYSICIAN BEARING MACHINE OPERATOR: Sujit Blackman PA-C FINDINGS: After informed [...] Pending blood gas improvement And more awake online advertising manager working discharge plan, likely dc 1-2 [...] admitted on: 11/30/2024 1:43 AM. presented to [facility] with swollen abdomen, abdominal discomfort and bilateral lower extremity pitting edema. Patient's BUN/creatinine elevated, and patient subsequently transferred to [facility] for hepatorenal syndrome evaluation. Admits to 4 [...] Culture And Stain AFB Culture And Stain [facility] Non-Tube Wrapper Cytology [facility] Non-Tube Wrapper Cytology DIFFERENTIAL, BODY FLUID DIFFERENTIAL, BODY FLUID Body Fluid/CSF - Path Review () Body Fluid/CSF - Path Review () [facility] BONE MARROW SMEAR, ASPIRATION, AND STAIN [facility] BONE MARROW SMEAR, ASPIRATION, AND STAIN [...] BODY REMOVAL; Surgeon: Scott Daley MD; Location: [facility]; Service: Gastroenterology; Laterality: N/A; Allergies: [...] Normal range of motion. Integumentary: Warm, Dry, Exline. Neurologic: No obvious focal deficit Psychiatric: Cooperative, Appropriate mood & affect. Labs, Imaging, and Other Studies: Echo Results (last 7 days) Procedure Component Value Units Date/Time ECHO COMPLETE (DOPPLER / COLOR) W OR WO CONTRAST [[id number]] Collected: 11/30/24724 Order Status: Completed Updated: 11/30/24 104 Narrative: TRANSTHORACIC ECHOCARDIOGRAPHY REPORT Demographics Patient Name: RIN JONES : 1960 Age: 64 year(s) Corporate ID Number: [id number] Gender Female Ramp Attendant: Giovanna Rock Height: 67 inches [facility] Referring Physician: HUEY HURTADO Weight: [...] 1.35 m/s E/A ratio: 0.97 m/s Volume doofrrocr603.99 LV length: 8.51 cm ml Volume nslydqgs76.96 ml LVOT diameter: 1.79 cm Normal sized [...] Valve TR velocity: 2.51 m/s TR gradient: 25.01305 mmHg Estimated RAP: 3 mmHg RVSP: 28.12 [...] (DOPPLER / COLOR) W OR WO CONTRAST [[id number]] Collected: 11/30/24 0725 Order Status: Completed Updated: 11/30/24 1046 Narrative: TRANSTHORACIC ECHOCARDIOGRAPHY REPORT Demographics Patient Name: RIN JONES : 1960 Age: 64 year(s) Corporate ID Number: [id number] Gender Female Ramp Attendant: Giovanna Rock Height: 67 inches [facility] Referring Physician: HUEY HURTADO Weight: [...] 1.35 m/s E/A ratio: 0.97 m/s Volume [id number] LV length: 8.51 cm ml Volume ucplxcjq68.96 ml LVOT diameter: 1.79 cm Normal sized [...] Valve TR velocity: 2.51 m/s TR gradient: 25.33701 mmHg Estimated RAP: 3 mmHg RVSP: 28.12 [...] imaging. Assessment and Plan: *Paroxysmal Atrial Fib [id number] of 3 to 4 also have some [...] Patient cannot take anticoagulation for A-fib despite [id number] because of multiple issue including GI bleeding [...] history as below. She initially presented to [facility] with swollen abdomen, abdominal discomfort, and bilateral lower extremity pain. Her creatinine was elevated and as a result, she was transferred to [facility] for he patorenal syndrome. Upon arrival [...] BODY REMOVAL; Surgeon: Scott Daley MD; Location: [facility]; Service: Gastroenterology; Laterality: N/A; Allergies: [...] ARTERIAL 8.7 (L) 12.0 - 18.0 g/dL [facility] COLLECTION SITE Left Radial Arterial Puncture Yes Blood Gas O2 Delivery Device Cannula Oxygen Flow Rate 4 Blood Gas PT Temperature C 37.0 Sen's Test Acceptable Critical Values Notification Critical Blood gas called to DAYANARA MILES . [place] [id number] and confirmed on12/09/2024 06:51 ABG Number of Draw Attempts 1 FIO2 Blood Gas Temperature Corrected Results No No Glucose, Nova Meter Status: Abnormal Collection Time: 12/09/24 11:17 AM Result Value Ref Range POC-GLUCOSE 173 (H) 70 - 110 mg/dL Raisin Washer [id number] Glucose, Nova Meter Status: Abnormal Collection Time: 12/09/24 4:23 PM Result Value Ref Range POC-GLUCOSE 173 (H) 70 - 110 mg/dL Raisin Washer [id number] Glucose, Nova Meter Status: Abnormal Collection Time: 12/09/24 7:30 PM Result Value Ref Range POC-GLUCOSE 158 (H) 70 - 110 mg/dL Raisin Washer [id number] Glucose, Nova Meter Status: Abnormal Collection Time: 12/10/24 5:52 AM Result Value Ref Range POC-GLUCOSE 162 (H) 70 - 110 mg/dL Raisin Washer [id number] Radiology Radiology Results (last day) Procedure Component Value Units Date/Time XR chest AP portable [[id number]] Collected: 12/09/24 0844 Order Status: Completed Updated: [...] Fungus Culture W/ROSA MARIA Or Nimisha Ink [[id number]] Collected: 11/30/24 160 Order Status: Completed Specimen: Peritoneal Fluid from Body Fluid Updated: 12/07/24 170 Result No fungus isolated at 1 week. ROSA MARIA Prep No fungal elements seen Narrative: Specimen Description: peritoneal fluid AFB Culture And Stain [[id number]] Collected: 11/30/24 160 Order Status: Completed Specimen: Peritoneal Fluid from Body Fluid Updated: 12/07/24 170 Result No Acid Fast Bacilli isolated at 1 week. AFB Smear No acid fast bacilli seen Narrative: Specimen Description: peritoneal fluid Anaerobic Culture [[id number]] Collected: 11/30/24 1603 Order Status: Completed Specimen: Peritoneal Fluid from Body Fluid Updated: 12/05/24 0634 Result No Anaerobic growth Narrative: Specimen Description: peritoneal fluid Blood Culture [[id number]] Collected: 11/30/24 0340 Order Status: Completed Specimen: Blood from Arm, Left Updated: 12/05/24 0501 Result No growth in 5 days Blood Culture [[id number]] Collected: 11/30/24 0342 Order Status: Completed Specimen: Blood from Arm, Right Updated: 12/05/24 0501 Result No growth in 5 days Body Fluid Culture + Gram Stain [[id number]] Collected: 11/30/24 1603 Order Status: Completed Specimen: Peritoneal Fluid from Body Fluid Updated: 12/03/24 0907 Result No growth Gram Stain Result No organisms seen No cells seen Narrative: Specimen Description: peritoneal fluid Body Fluid/CSF - Path Review () [[id number]] Collected: 11/30/24 160 Order Status: Completed Specimen: [...] to continue with albumin/diuretics no indication for HEAD ATHLETIC TRAINER/STRENGTH COACH No significant pleural effusion for thoracentesis If needed repeat chest x-ray. Otherwise continue diuresis Pulmonary continue to follow Case discussed during round. I have personally evaluated the patient and performed a pmjc-fq-[id number] diagnostic evaluation on this patient; I have reviewed history, performed physical examination, reviewed laboratory studies. , andreviewed images independent of radiologist. I have actively directed the medical care, formulated assessemnt and plan of care. Patient requires a high complexity of decision making for assessment. 34 minutes critical care time was spent. Voice geriatric nurse practitioner technology ([employer]) is used for dictation of this note and sound-alike words might be erroneously placed despite reviewing the note for accuracy.Errors in dictation may reflect use of voice recognition software and not all errors in geriatric nurse practitioner may have been detectedprior to signing * [...] POC-GLUCOSE 159 (H) 70 - 110 mg/dL Raisin Washer [id number] Glucose, Nova Meter Status: Abnormal Collection Time: 12/08/24 8:08 PM Result Value Ref Range POC-GLUCOSE 172 (H) 70 - 110 mg/dL Raisin Washer [id number] Basic Metabolic Panel Status: Abnormal Collection Time: [...] Osmolality Calc 320.0 mOsm/kg CBC - [facility] Status: Abnormal Collection Time: 12/09/24 3:38 [...] POC-GLUCOSE 148 (H) 70 - 110 mg/dL Raisin Washer [id number] ABG Status: Abnormal Collection Time: 12/09/24 6:37 [...] ARTERIAL 8.7 (L) 12.0 - 18.0 g/dL [facility] COLLECTION SITE Left Radial Arterial Puncture Yes Blood Gas O2 Delivery Device Cannula Oxygen Flow Rate 4 Blood Gas PT Temperature C 37.0 Sen's Test Acceptable Critical Values Notification Critical Blood gas called to DAYANARA MILES . [place] [id number] and confirmed on12/09/2024 06:51 ABG Number of Draw Attempts 1 FIO2 Blood Gas Temperature Corrected Results No No Glucose, Nova Meter Status: Abnormal Collection Time: 12/09/24 11:17 AM Result Value Ref Range POC-GLUCOSE 173 (H) 70 - 110 mg/dL Raisin Washer [id number] XR chest AP portable Narrative: PORTABLE CHEST. [...] Pending blood gas improvement And more awake online advertising manager working discharge plan * Tori Kamara [...] +++ Pedal edema , no cyanosis DIRECTOR MOBILE: Alert, No focal deficit noted grossly Psy: Cooperative Labs: Results for orders placed or performed during the hospital encounter of 11/30/24 (from the past 24 hours) Glucose, Nova Meter Status: Abnormal Collection Time: 12/08/24 10:57 AM Result Value Ref Range POC-GLUCOSE 191 (H) 70 - 110 mg/dL Raisin Washer [id number] Glucose, Nova Meter Status: Abnormal Collection Time: 12/08/24 3:34 PM Result Value Ref Range POC-GLUCOSE 159 (H) 70 - 110 mg/dL Raisin Washer [id number] Glucose, Nova Meter Status: Abnormal Collection Time: 12/08/24 8:08 PM Result Value Ref Range POC-GLUCOSE 172 (H) 70 - 110 mg/dL Raisin Washer [id number] Basic Metabolic Panel Status: Abnormal Collection Time: [...] POC-GLUCOSE 148 (H) 70 - 110 mg/dL Raisin Washer [id number] ABG Status: Abnormal Collection Time: 12/09/24 6:37 [...] ARTERIAL 8.7 (L) 12.0 - 18.0 g/dL [facility] COLLECTION SITE Left Radial Arterial Puncture Yes Blood Gas O2 Delivery Device Cannula Oxygen Flow Rate 4 Blood Gas PT Temperature C 37.0 Sen's Test Acceptable Critical Values Notification Critical Blood gas called to DAYANARA MILES . [place] [id number] and confirmed on12/09/2024 06:51 ABG Number of [...] Intake/Output Summary (Last 24 hours) at 12/09/2024 0932 Last data filed at 12/09/2024 0300 Gross [...] renal function - No emergent need of HEAD ATHLETIC TRAINER/STRENGTH COACH - Monitor H/H and transfuse for Hgb less than 7.0 Discussed with patient Follow up with [facility] in 1-2 weeks with renal function panel * KENNEY Zaragoza - 12/09/2024 8:04 AM EDTSummary: Referral Pending Discharge Plan Progress Note Family/Sister prefers [facility]. SW/CM sent referral this AM. Currently pending. [facility] [address] KENNEY Zaragoza * Blanka Malagon MD - 12/09/2024 6:30 AM EDT Images from the original note were not included. PULMONARY AND CRITICAL CARE Consult Note Date of Service: 12/09/2024 HPI: This is a 64 y.o. year old female with past medical history as below. She initially presented to [facility] with swollen abdomen, abdominal discomfort, and bilateral lower extremity pain. Her creatinine was elevated and as a result, she was transferred to [facility] for he patorenal syndrome. Upon arrival [...] BODY REMOVAL; Surgeon: Scott Daley MD; Location: [facility]; Service: Gastroenterology; Laterality: N/A; Allergies: [...] ARTERIAL 8.8 (L) 12.0 - 18.0 g/dL [facility] COLLECTION SITE Right Brachial Arterial Puncture Yes Blood Gas O2 Delivery Device Cannula Oxygen Flow Rate 4 Blood Gas PT Temperature C 37.0 Sen's Test Not Applicable Critical Values Notification Critical Blood gas called to KNOWN CONDITION . Results acknowledged/read back to [id number] and confirmed on 12/08/2024 07:30 ABG Number of Draw Attempts 1 FIO2 Blood Gas Temperature Corrected Results No No Glucose, Nova Meter Status: Abnormal Collection Time: 12/08/24 10:57 AM Result Value Ref Range POC-GLUCOSE 191 (H) 70 - 110 mg/dL Raisin Washer [id number] Glucose, Nova Meter Status: Abnormal Collection Time: 12/08/24 3:34 PM Result Value Ref Range POC-GLUCOSE 159 (H) 70 - 110 mg/dL Raisin Washer [id number] Glucose, Nova Meter Status: Abnormal Collection Time: 12/08/24 8:08 PM Result Value Ref Range POC-GLUCOSE 172 (H) 70 - 110 mg/dL Raisin Washer [id number] Basic Metabolic Panel Status: Abnormal Collection Time: [...] POC-GLUCOSE 148 (H) 70 - 110 mg/dL Raisin Washer [id number] Radiology Radiology Results (last day) No results found for the last 24 hours. Microbiology: Microbiology Results (last 7 days) Procedure Component Value Units Date/Time Fungus Culture W/ROSA MARIA Or Nimisha Ink [[id number]] Collected: 11/30/24 160 Order Status: Completed Specimen: Peritoneal Fluid from Body Fluid Updated: 12/07/24 170 Result No fungus isolated at 1 week. ROSA MARIA Prep No fungal elements seen Narrative: Specimen Description: peritoneal fluid AFB Culture And Stain [[id number]] Collected: 11/30/24 160 Order Status: Completed Specimen: Peritoneal Fluid from Body Fluid Updated: 12/07/24 1700 Result No Acid Fast Bacilli isolated at 1 week. AFB Smear No acid fast bacilli seen Narrative: Specimen Description: peritoneal fluid Anaerobic Culture [[id number]] Collected: 11/30/24 160 Order Status: Completed Specimen: Peritoneal Fluid from Body Fluid Updated: 12/05/24 0634 Result No Anaerobic growth Narrative: Specimen Description: peritoneal fluid Blood Culture [[id number]] Collected: 11/30/24 0340 Order Status: Completed Specimen: Blood from Arm, Left Updated: 12/05/24 0501 Result No growth in 5 days Blood Culture [[id number]] Collected: 11/30/24 0342 Order Status: Completed Specimen: Blood from Arm, Right Updated: 12/05/24 0501 Result No growth in 5 days Body Fluid Culture + Gram Stain [[id number]] Collected: 11/30/24 1603 Order Status: Completed Specimen: Peritoneal Fluid from Body Fluid Updated: 12/03/24 0907 Result No growth Gram Stain Result No organisms seen No cells seen Narrative: Specimen Description: peritoneal fluid Body Fluid/CSF - Path Review () [[id number]] Collected: 11/30/24 1603 Order Status: Completed Specimen: Peritoneal Fluid from Body Fluid Updated: 12/03/24 0654 SENT TO PATHOLOGY FOR REVIEW Yes Scan Result Mesothelial cells. MD Greman 12/02/2024 ECHO Normal sized left ventricle. Normal [...] to continue with albumin/diuretics no indication for HEAD ATHLETIC TRAINER/STRENGTH COACH No significant pleural effusion for thoracentesis If needed repeat chest x-ray. Otherwise continue diuresis Pulmonary twill follow . If ABG not improving ,or worsening mental status recommended ICU Case discussed during round. I have personally evaluated the patient and performed a xebr-da-tdbe diagnostic evaluation on this patient; I have reviewed history, performed physical examination, reviewed laboratory studies. , andreviewed images independent of radiologist. I have actively directed the medical care, formulated assessemnt and plan of care. Patient requires a high complexity of decision making for assessment. 34 minutes critical care time was spent. Voice geriatric nurse practitioner technology ([employer]) is used for dictation of this note and sound-alike words might be erroneously placed despite reviewing the note for accuracy.Errors in dictation may reflect use of voice recognition software and not all errors in geriatric nurse practitioner may have been detectedprior to signing * [...] Readiness for SNF - Bed Offer with [facility] Discharge Plan Progress Note SW/MANGO updated Rama T with [facility] regarding patient's ICU transfer cancellation.CM to follow up with Rama on 12/09 with updated PT/OT notes, MD progress notes of patients care, BiPaP/RT plan. [facility] is still offering bed for patient. [facility] will be needed, [facility]. SW/CM has attempted to call patient's sister, Jojo Dominguez x3 times, at # listed, , however, CM is experiencing phone issues and unable to call out. CM has informed bedside RN and MACHINE SWEEPER BRUSH MAKER via [employer]. KENNEY Zaragoza * KENNEY Zaragoza - 12/08/2024 1:29 PM EDTSummary: CM Assessment Care Coordination Initial Assessment Patient's readmit score is low at 12%. CM plan was to DC home/independent at baseline or with family/sister assistance. Sister, Jojo, stated she cannot care for patient if patient was to come homewith her, and patient needed rehab. CM sent referrals, patient had bed offers, [facility] offered bed first and [...] (P) Independent Current Lines, Tubes: (P) 3L/min [place] Special/Community Services: (P) Transport, discharge, Home, assistance Transition Needs Expected Discharge Date: Off Track GMLOS, TBD - 12/10-12/12 Home or Post Acute Services Needed: (P) Post acute facilities (Rehab/SNF/etc) Does the patient have the ability to fill and receive their discharge medications: (P) Yes Discharge plan discussed: (P) The discharge plan was discussed with patient cash posting representative. Discharge Barriers: (P) Test(s) Pending, Activity Type of Assistive Devices Needed for Discharge: (P) None Patient Discharge Goal: (P) Inpatient Rehab Facility, Custodial Facility Mandated Reporting: (P) Not applicable PT/OT/DIVIDING MACHINE OPERATOR Recommendations PT Recommendations: Pending Hospital Stay OT Recommendations: Pending Hospital Stay DIVIDING MACHINE OPERATOR Recommendations: NA 12/08/24 1327 Home Environment Type [...] Assistive Devices Walker;Commode Current Lines, Tubes 3L/min [place] Special/Community Services Transport, discharge;Home, assistance Transition Needs Home or Post Acute Services Post acute facilities (Rehab/SNF/etc) Type of Post Acute Facility Services penitentiary;Rehab Does the patient have the ability to fill and receive their discharge medications? Yes Discharge Plan Discussed The discharge plan was discussed with patient cash posting representative. Discharge Plan Outcome Patient/family cash posting representative agrees with the discharge plan Discharge Barriers Test(s) Pending;Activity Type of Assistive Devices Needed for Discharge None Patient Discharge Goal Inpatient Rehab Facility;Custodial Facility Mandated Reporting Not applicable KENNEY Zaragoza * Deysi Foss MD - 12/08/2024 11:29 AM EDT EP progress note Patient Name: Mary Coronel Admission Date: 11/30/2024 Primary Care Provider: [facility] Find-a-Doc Chief Complaint/Reason for Consult: No chief complaint on file. History of Present Illness: Mary Coronel is a 64 y.o. female, admitted on: 11/30/2024 1:43 AM. presented to [facility] with swollen abdomen, abdominal discomfort and bilateral lower extremity pitting edema. Patient's BUN/creatinine elevated, and patient subsequently transferred to [facility] for hepatorenal syndrome evaluation. Admits to 4 [...] 12.5 mg oral Daily Hill Boo MD [facility] [place] meds No current facility-administered [...] Culture And Stain AFB Culture And Stain [facility] Non-Tube Wrapper Cytology [facility] Non-Tube Wrapper Cytology DIFFERENTIAL, BODY FLUID DIFFERENTIAL, BODY FLUID Body Fluid/CSF - Path Review () Body Fluid/CSF - Path Review () [facility] BONE MARROW SMEAR, ASPIRATION, AND STAIN [facility] BONE MARROW SMEAR, ASPIRATION, AND STAIN [...] BODY REMOVAL; Surgeon: Scott Daley MD; Location: [facility]; Service: Gastroenterology; Laterality: N/A; Allergies: [...] Normal range of motion. Integumentary: Warm, Dry, Exline. Neurologic: No obvious focal deficit Psychiatric: Cooperative, Appropriate mood & affect. Labs, Imaging, and Other Studies: Echo Results (last 7 days) Procedure Component Value Units Date/Time ECHO COMPLETE (DOPPLER / COLOR) W OR WO CONTRAST [[id number]] Collected: 11/30/2466 Order Status: Completed Updated: 11/30/24 104 Narrative: TRANSTHORACIC ECHOCARDIOGRAPHY REPORT Demographics Patient Name: RIN JONES : 1960 Age: 64 year(s) Corporate ID Number: [id number] Gender Female Ramp Attendant: Giovanna Rock Height: 67 inches [facility] Referring Physician: HUEY HURTADO Weight: 225 pounds Interpreting JESSICA RAYMOND MD BMI: 35.24 kg/m^2 Physician: Date of Service: 11/30/2024 Blood Pressure: 118/59 mmHg Room Number: 579 Type of Study: TTE procedure: ECHO COMPLETE (DOPPLER / COLOR) W OR WO CONTRAST. Patient Status: Routine IP [facility] Adequate [facility] History/Tech Notes: Indication: [...] 1.35 m/s E/A ratio: 0.97 m/s Volume ihcvahkoq935.99 LV length: 8.51 cm ml Volume rlnoutqq56.96 ml LVOT diameter: 1.79 cm Normal sized [...] Valve TR velocity: 2.51 m/s TR gradient: 25.04501 mmHg Estimated RAP: 3 mmHg RVSP: 28.12 [...] (DOPPLER / COLOR) W OR WO CONTRAST [[id number]] Collected: 11/30/24724 Order Status: Completed Updated: 11/30/24 1046 Narrative: TRANSTHORACIC ECHOCARDIOGRAPHY REPORT Demographics Patient Name: RIN JONES : 1960 Age: 64 year(s) Corporate ID Number: [id number] Gender Female Ramp Attendant: Giovanna Rock Height: 67 inches [facility] Referring Physician: HUEY HURTADO Weight: 225 pounds Interpreting JESSICA RAYMOND MD BMI: 35.24 kg/m^2 Physician: Date of Service: 11/30/2024 Blood Pressure: 118/59 mmHg Room Number: 579 Type of Study: TTE procedure: ECHO COMPLETE (DOPPLER / COLOR) W OR WO CONTRAST. Patient Status: Routine IP [facility]: Adequate visualization History/Tech Notes: Indication: [...] .99 LV length: 8.51 cm ml Volume eiknutte33.96 ml LVOT diameter: 1.79 cm Normal sized [...] Valve TR velocity: 2.51 m/s TR gradient: 25.23762 mmHg Estimated RAP: 3 mmHg RVSP: 28.12 [...] imaging. Assessment and Plan: *Paroxysmal Atrial Fib [id number] of 3 to 4 also have some [...] Patient cannot take anticoagulation for A-fib despite [id number] because of multiple issue including GI bleeding [...] BODY REMOVAL; Surgeon: Scott Daley MD; Location: [facility]; Service: Gastroenterology; Laterality: N/A; General [...] 12.0 - 18.0 g/dL PaO2/FIO2 calculated 203.0 [facility] COLLECTION SITE Right Radial Arterial Puncture Yes Blood Gas PT Temperature C 37.0 Sen's Test Acceptable Critical Values Notification Critical Blood gas called to TRAY LORENZ RN . [place] [id number] and confirmed on 12/07/2024 10:51 ABG Number of Draw Attempts 1 FIO2 21.0 Blood Gas Temperature Corrected Results No No Glucose, Nova Meter Status: Abnormal Collection Time: 12/07/24 10:54 AM Result Value Ref Range POC-GLUCOSE 146 (H) 70 - 110 mg/dL Raisin Washer [id number] Blood gas, arterial Status: Abnormal Collection Time: [...] ARTERIAL 8.9 (L) 12.0 - 18.0 g/dL [facility] COLLECTION SITE Right Radial Arterial Puncture Yes Blood Gas O2 Delivery Device Cannula Oxygen Flow Rate 2 Blood Gas PT Temperature C 37.0 Sen's Test Unacceptable Vent Mode Other Critical Values Notification Critical Blood gas called to DR MALAGON . [place] [id number] and confirmed on 12/07/2024 14:14 ABG Number of Draw Attempts 1 Performed by: CD FIO2 Blood Gas Temperature Corrected Results No No Glucose, Nova Meter Status: Abnormal Collection Time: 12/07/24 3:39 PM Result Value Ref Range POC-GLUCOSE 159 (H) 70 - 110 mg/dL Raisin Washer [id number] ABG Status: Abnormal Collection Time: 12/07/24 4:21 [...] 12.0 - 18.0 g/dL PaO2/FIO2 calculated 359.0 [facility] COLLECTION SITE Right Brachial Arterial Puncture Yes Blood Gas O2 Delivery Device NIV Blood Gas PT Temperature C 37.0 Sen's Test Not Applicable Critical Values Notification Critical Blood gas called to SEB LORENZ RN . Results acknowledged/read back to [id number] and confirmed on 12/07/2024 16:42 ABG Number of Draw Attempts 2 Set Rate 16.0 IPAP 10 EPAP 6 FIO2 50.0 Blood Gas Temperature Corrected Results No No Glucose, Nova Meter Status: Abnormal Collection Time: 12/07/24 7:54 PM Result Value Ref Range POC-GLUCOSE 164 (H) 70 - 110 mg/dL Raisin Washer [id number] Basic Metabolic Panel Status: Abnormal Collection Time: [...] POC-GLUCOSE 136 (H) 70 - 110 mg/dL Raisin Washer [id number] Blood gas, arterial Status: Abnormal Collection Time: [...] ARTERIAL 8.8 (L) 12.0 - 18.0 g/dL [facility] COLLECTION SITE Right Brachial Arterial Puncture Yes Blood Gas O2 Delivery Device Cannula Oxygen Flow Rate 4 Blood Gas PT Temperature C 37.0 Sen's Test Not Applicable Critical Values Notification Critical Blood gas called to KNOWN CONDITION . Results acknowledged/read back to [id number] and confirmed on 12/08/2024 07:30 ABG Number [...] Pending blood gas improvement And more awake online advertising manager working discharge plan * Hill Boo [...] +++ Pedal edema , no cyanosis DIRECTOR MOBILE: Alert, No focal deficit noted grossly Psy: Cooperative Labs: Results for orders placed or performed during the hospital encounter of 11/30/24 (from the past 24 hours) ECG 12 lead Status: None Collection Time: 12/07/24 10:29 AM Result Value Ref Range VENTRICULAR RATE EKG/MIN 91 BPM ATRIAL RATE (MCT) 91 BPM ID Interval 142 ms QRS-INTERVAL (MSEC) 88 ms QT Interval 376 ms QTC Interval 462 ms P [place] 39 degrees R AXIS (MCT) -3 degrees T Wave [place] 4 degrees [place] Diagnosis Normal sinus rhythm Nonspecific T wave [...] 12.0 - 18.0 g/dL PaO2/FIO2 calculated 203.0 [facility] COLLECTION SITE Right Radial Arterial Puncture Yes Blood Gas PT Temperature C 37.0 Sen's Test Acceptable Critical Values Notification Critical Blood gas called to TRAY LORENZ RN . [place] [id number] and confirmed on 12/07/2024 10:51 ABG Number of Draw Attempts 1 FIO2 21.0 Blood Gas Temperature Corrected Results No No Glucose, Nova Meter Status: Abnormal Collection Time: 12/07/24 10:54 AM Result Value Ref Range POC-GLUCOSE 146 (H) 70 - 110 mg/dL Raisin Washer [id number] Blood gas, arterial Status: Abnormal Collection Time: [...] ARTERIAL 8.9 (L) 12.0 - 18.0 g/dL [facility] COLLECTION SITE Right Radial Arterial Puncture Yes Blood Gas O2 Delivery Device Cannula Oxygen Flow Rate 2 Blood Gas PT Temperature C 37.0 Sen's Test Unacceptable Vent Mode Other Critical Values Notification Critical Blood gas called to DR MALAGON . [place] [id number] and confirmed on 12/07/2024 14:14 ABG Number of Draw Attempts 1 Performed by: CD FIO2 Blood Gas Temperature Corrected Results No No Glucose, Nova Meter Status: Abnormal Collection Time: 12/07/24 3:39 PM Result Value Ref Range POC-GLUCOSE 159 (H) 70 - 110 mg/dL Raisin Washer [id number] ABG Status: Abnormal Collection Time: 12/07/24 4:21 [...] 12.0 - 18.0 g/dL PaO2/FIO2 calculated 359.0 [facility] COLLECTION SITE Right Brachial Arterial Puncture Yes Blood Gas O2 Delivery Device NIV Blood Gas PT Temperature C 37.0 Sen's Test Not Applicable Critical Values Notification Critical Blood gas called to SEB LORENZ RN . Results acknowledged/read back to [id number] and confirmed on 12/07/2024 16:42 ABG Number of Draw Attempts 2 Set Rate 16.0 IPAP 10 EPAP 6 FIO2 50.0 Blood Gas Temperature Corrected Results No No Glucose, Nova Meter Status: Abnormal Collection Time: 12/07/24 7:54 PM Result Value Ref Range POC-GLUCOSE 164 (H) 70 - 110 mg/dL Raisin Washer [id number] Basic Metabolic Panel Status: Abnormal Collection Time: [...] Osmolality Calc 322.3 mOsm/kg [facility] Status: Abnormal Collection Time: 12/08/24 4:10 [...] POC-GLUCOSE 136 (H) 70 - 110 mg/dL Raisin Washer [id number] Blood gas, arterial Status: Abnormal Collection Time: [...] ARTERIAL 8.8 (L) 12.0 - 18.0 g/dL [facility] COLLECTION SITE Right Brachial Arterial Puncture Yes Blood Gas O2 Delivery Device Cannula Oxygen Flow Rate 4 Blood Gas PT Temperature C 37.0 Sen's Test Not Applicable Critical Values Notification Critical Blood gas called to KNOWN CONDITION . Results acknowledged/read back to [id number] and confirmed on 12/08/2024 07:30 ABG Number [...] 4- Pancytopenia -Hematology following - S/p EGD 5/7/25showing duodenal ulcer and small varices. S/pbone marrow [...] renal function - No emergent need of HEAD ATHLETIC TRAINER/STRENGTH COACH - Monitor H/H and transfuse for Hgb [...] history as below. She initially presented to [facility] with swollen abdomen, abdominal discomfort, and bilateral lower extremity pain. Her creatinine was elevated and as a result, she was transferred to [facility] for he patorenal syndrome. Upon arrival [...] BODY REMOVAL; Surgeon: Scott Daley MD; Location: [facility]; Service: Gastroenterology; Laterality: N/A; Allergies: [...] 91 BPM ATRIAL RATE (MCT) 91 BPM ID Interval 142 ms QRS-INTERVAL (MSEC) 88 ms QT Interval 376 ms QTC Interval 462 ms P [place] 39 degrees R AXIS (MCT) -3 degrees T Wave [place] 4 degrees [place] Diagnosis Normal sinus rhythm Nonspecific T wave abnormality Abnormal ECG When compared with ECG of 06-DEC-2024 13:16, No significant change was found Confirmed by DEYSI FOSS M.D. ([id number]) on 12/07/2024 7:36:17 PM Blood gas, arterial [...] 12.0 - 18.0 g/dL PaO2/FIO2 calculated 203.0 [facility] COLLECTION SITE Right Radial Arterial Puncture Yes Blood Gas PT Temperature C 37.0 Sen's Test Acceptable Critical Values Notification Critical Blood gas called to TRAY LORENZ RN . [place] [id number] and confirmed on 12/07/2024 10:51 ABG Number of Draw Attempts 1 FIO2 21.0 Blood Gas Temperature Corrected Results No No Glucose, Nova Meter Status: Abnormal Collection Time: 12/07/24 10:54 AM Result Value Ref Range POC-GLUCOSE 146 (H) 70 - 110 mg/dL Raisin Washer [id number] Blood gas, arterial Status: Abnormal Collection Time: [...] ARTERIAL 8.9 (L) 12.0 - 18.0 g/dL [facility] COLLECTION SITE Right Radial Arterial Puncture Yes Blood Gas O2 Delivery Device Cannula Oxygen Flow Rate 2 Blood Gas PT Temperature C 37.0 Sen's Test Unacceptable Vent Mode Other Critical Values Notification Critical Blood gas called to DR MALAGON . [place] [id number] and confirmed on 12/07/2024 14:14 ABG Number of Draw Attempts 1 Performed by: WIL FIO2 Blood Gas Temperature Corrected Results No No Glucose, Nova Meter Status: Abnormal Collection Time: 12/07/24 3:39 PM Result Value Ref Range POC-GLUCOSE 159 (H) 70 - 110 mg/dL Raisin Washer [id number] ABG Status: Abnormal Collection Time: 12/07/24 4:21 [...] 12.0 - 18.0 g/dL PaO2/FIO2 calculated 359.0 [facility] COLLECTION SITE Right Brachial Arterial Puncture Yes Blood Gas O2 Delivery Device NIV Blood Gas PT Temperature C 37.0 Sen's Test Not Applicable Critical Values Notification Critical Blood gas called to SEB LORENZ RN . Results acknowledged/read back to [id number] and confirmed on 12/07/2024 16:42 ABG Number of Draw Attempts 2 Set Rate 16.0 IPAP 10 EPAP 6 FIO2 50.0 Blood Gas Temperature Corrected Results No No Glucose, Nova Meter Status: Abnormal Collection Time: 12/07/24 7:54 PM Result Value Ref Range POC-GLUCOSE 164 (H) 70 - 110 mg/dL Raisin Washer [id number] Basic Metabolic Panel Status: Abnormal Collection Time: [...] Osmolality Calc 322.3 mOsm/kg CBC - [facility] Status: Abnormal Collection Time: 12/08/24 4:10 [...] POC-GLUCOSE 136 (H) 70 - 110 mg/dL Raisin Washer [id number] Blood gas, arterial Status: Abnormal Collection Time: [...] ARTERIAL 8.8 (L) 12.0 - 18.0 g/dL [facility] COLLECTION SITE Right Brachial Arterial Puncture Yes Blood Gas O2 Delivery Device Cannula Oxygen Flow Rate 4 Blood Gas PT Temperature C 37.0 Sen's Test Not Applicable Critical Values Notification Critical Blood gas called to KNOWN CONDITION . Results acknowledged/read back to [id number] and confirmed on 12/08/2024 07:30 ABG Number of Draw Attempts 1 FIO2 Blood Gas Temperature Corrected Results No No Radiology Radiology Results (last day) Procedure Component Value Units Date/Time XR chest AP portable [[id number]] Collected: 12/07/24 1550 Order Status: Completed Updated: [...] Fungus Culture W/ROSA MARIA Or Nimisha Ink [[id number]] Collected: 11/30/24 1603 Order Status: Completed Specimen: Peritoneal Fluid from Body Fluid Updated: 12/07/24 1700 Result No fungus isolated at 1 week. ROSA MARIA Prep No fungal elements seen Narrative: Specimen Description: peritoneal fluid AFB Culture And Stain [[id number]] Collected: 11/30/24 1603 Order Status: Completed Specimen: Peritoneal Fluid from Body Fluid Updated: 12/07/24 1700 Result No Acid Fast Bacilli isolated at 1 week. AFB Smear No acid fast bacilli seen Narrative: Specimen Description: peritoneal fluid Anaerobic Culture [[id number]] Collected: 11/30/24 1603 Order Status: Completed Specimen: Peritoneal Fluid from Body Fluid Updated: 12/05/24 0634 Result No Anaerobic growth Narrative: Specimen Description: peritoneal fluid Blood Culture [[id number]] Collected: 11/30/24 0340 Order Status: Completed Specimen: Blood from Arm, Left Updated: 12/05/24 0501 Result No growth in 5 days Blood Culture [[id number]] Collected: 11/30/24 0342 Order Status: Completed Specimen: Blood from Arm, Right Updated: 12/05/24 0501 Result No growth in 5 days Body Fluid Culture + Gram Stain [[id number]] Collected: 11/30/24 1603 Order Status: Completed Specimen: Peritoneal Fluid from Body Fluid Updated: 12/03/24 0907 Result No growth Gram Stain Result No organisms seen No cells seen Narrative: Specimen Description: peritoneal fluid Body Fluid/CSF - Path Review () [[id number]] Collected: 11/30/24 1603 Order Status: Completed Specimen: [...] to continue with albumin/diuretics no indication for HEAD ATHLETIC TRAINER/STRENGTH COACH No significant pleural effusion for thoracentesis If needed repeat chest x-ray. Otherwise continue diuresis Pulmonary twill follow . If ABG not improving ,or worsening mental status recommended ICU Case discussed during round. I have personally evaluated the patient and performed a uyot-ns-lgcy diagnostic evaluation on this patient; I have reviewed history, performed physical examination, reviewed laboratory studies. , and reviewed images independent of radiologist. I have actively directed the medical care, formulated assessemnt and plan of care. Patient requires a high complexity of decision making for assessment. 34 minutes critical care time was spent. Voice geriatric nurse practitioner technology ([employer]) is used for dictation of this note and sound-alike words might be erroneously placed despite reviewing the note for accuracy.Errors in dictation may reflect use of voice recognition software and not all errors in geriatric nurse practitioner may have been detectedprior to signing * [...] up as schedule allows. Electronically signed by DAWOOD Gaona/Amada - 12/07/2024 - 3:38 PM EDT * [...] Electronically signed by Alvina Barragan PT - 12/07/2024 - 1:17 PM EDT * Deysi Foss MD - 12/07/2024 12:42 PM EDT EP progress note Patient Name: Mary Coronel Admission Date: 11/30/2024 Primary Care Provider: [facility] Find-a-Doc Chief Complaint/Reason for Consult: No chief complaint on file. History of Present Illness: Mary Coronel is a 64 y.o. female, admitted on: 11/30/2024 1:43 AM. presented to [facility] with swollen abdomen, abdominal discomfort and bilateral lower extremity pitting edema. Patient's BUN/creatinine elevated, and patient subsequently transferred to [facility] for hepatorenal syndrome evaluation. Admits to 4 [...] Culture And Stain AFB Culture And Stain [facility] Non-Tube Wrapper Cytology [facility] Non-Tube Wrapper Cytology DIFFERENTIAL, BODY FLUID DIFFERENTIAL, BODY FLUID Body Fluid/CSF - Path Review () Body Fluid/CSF - Path Review () [facility] BONE MARROW SMEAR, ASPIRATION, AND STAIN [facility] BONE MARROW SMEAR, ASPIRATION, AND STAIN [...] BODY REMOVAL; Surgeon: Scott Daley MD; Location: [facility]; Service: Gastroenterology; Laterality: N/A; Allergies: [...] Normal range of motion. Integumentary: Warm, Dry, Exline. Neurologic: No obvious focal deficit Psychiatric: Cooperative, Appropriate mood & affect. Labs, Imaging, and Other Studies: Echo Results (last 7 days) Procedure Component Value Units Date/Time ECHO COMPLETE (DOPPLER / COLOR) W OR WO CONTRAST [[id number]] Collected: 11/30/24724 Order Status: Completed Updated: 11/30/241045 Narrative: TRANSTHORACIC ECHOCARDIOGRAPHY REPORT Demographics Patient Name: RIN JONES : 1960 Age: 64 year(s) Corporate ID Number: [id number] Gender Female Ramp Attendant: Giovanna Rock Height: 67 inches [facility] Referring Physician: HUEY HURTADO Weight: 225 pounds Interpreting JESSICA RAYMOND MD BMI: 35.24 kg/m^2 Physician: Date of Service: 11/30/2024 Blood Pressure: 118/59 mmHg Room Number: 579 Type of Study: TTE procedure: ECHO COMPLETE (DOPPLER / COLOR) W OR WO CONTRAST. Patient Status: Routine IP Study Location: [facility] Quality: Adequate visualization History/Tech Notes: Indication: [...] .99 LV length: 8.51 cm ml Volume lnksmqay47.96 ml LVOT diameter: 1.79 cm Normal sized [...] Valve TR velocity: 2.51 m/s TR gradient: 25.30061 mmHg Estimated RAP: 3 mmHg RVSP: 28.12 [...] (DOPPLER / COLOR) W OR WO CONTRAST [[id number]] Collected: 11/30/2425 Order Status: Completed Updated: 11/30/24 104 Narrative: TRANSTHORACIC ECHOCARDIOGRAPHY REPORT Demographics Patient Name: RIN JONES : 1960 Age: 64 year(s) Corporate ID Number: [id number] Gender Female Ramp Attendant: Giovanna Rock Height: 67 inches [facility] Referring Physician: HUEY HURTADO Weight: [...] .99 LV length: 8.51 cm ml Volume kcrjkksu01.96 ml LVOT diameter: 1.79 cm Normal sized [...] Valve TR velocity: 2.51 m/s TR gradient: 25.78839 mmHg Estimated RAP: 3 mmHg RVSP: 28.12 [...] imaging. Assessment and Plan: *Paroxysmal Atrial Fib [id number] of 2 also have some wide-complex tachycardia [...] 90 BPM ATRIAL RATE (MCT) 90 BPM ID Interval 142 ms QRS-INTERVAL (MSEC) 92 ms QT Interval 378 ms QTC Interval 462 ms P [place] 28 degrees R AXIS (MCT) -4 degrees T Wave [place] 21 degrees [place] Diagnosis Normal sinus rhythm Septal infarct , age undetermined Abnormal ECG When compared with ECG of 04-DEC-2024 20:08, Septal infarct is now present Nonspecific T wave abnormality no longer evident in Anterior leads Glucose, Nova Meter Status: Abnormal Collection Time: 12/06/24 4:06 PM Result Value Ref Range POC-GLUCOSE 134 (H) 70 - 110 mg/dL Raisin Washer [id number] Glucose, Nova Meter Status: Abnormal Collection Time: 12/06/24 7:26 PM Result Value Ref Range POC-GLUCOSE 170 (H) 70 - 110 mg/dL Raisin Washer [id number] CBC - Hemogram (-[facility]) Status: Abnormal Collection [...] POC-GLUCOSE 159 (H) 70 - 110 mg/dL Raisin Washer [id number] ECG 12 lead Status: None (In process) Collection Time: 12/07/24 10:29 AM Result Value Ref Range VENTRICULAR RATE EKG/MIN 91 BPM ATRIAL RATE (MCT) 91 BPM ID Interval 142 ms QRS-INTERVAL (MSEC) 88 ms QT Interval 376 ms QTC Interval 462 ms P [place] 39 degrees R AXIS (MCT) -3 degrees T Wave [place] 4 degrees [place] Diagnosis Normal sinus rhythm Nonspecific T wave abnormality Abnormal ECG When compared with ECG of 06-DEC-2024 13:16, No significant change was found Glucose, Nova Meter Status: Abnormal Collection Time: 12/07/24 10:54 AM Result Value Ref Range POC-GLUCOSE 146 (H) 70 - 110 mg/dL Raisin Washer [id number] XR chest AP portable Narrative: PORTABLE CHEST; [...] ordered Need to be transferred to ICU online advertising manager working discharge plan * Lian Dominguez [...] Anterior;Left Date First Assessed/Time First Assessed: 12/07/24 09 Present on Original Admission: No Primary Wound Type: Pressure Injury Location: Leg upper Wound Location Orientation: Anterior;Left Site Assessment Red;Yellow Olinda-Wound Assessment Exline Odor None Pressure Injury Stage 2 Wound care performing NDNQI rounds. Patient on JORJE surface, agreeable to assessment. During head totoe skin inspection a MDRPI found on patients left anterior thigh due to urinary catheter tubing. MDRPI verified by second wound care steam finisher. [facility] RN recommends cleansing site with [...] +++ Pedal edema , no cyanosis DIRECTOR MOBILE: Alert, No focal deficit noted grossly Psy: Cooperative Labs: Results for orders placed or performed during the hospital encounter of 11/30/24 (from the past 24 hours) Glucose, Nova Meter Status: Abnormal Collection Time: 12/06/24 10:36 AM Result Value Ref Range POC-GLUCOSE 150 (H) 70 - 110 mg/dL Raisin Washer [id number] ECG 12 lead Status: None (In process) Collection Time: 12/06/24 1:16 PM Result Value Ref Range VENTRICULAR RATE EKG/MIN 90 BPM ATRIAL RATE (MCT) 90 BPM ID Interval 142 ms QRS-INTERVAL (MSEC) 92 ms QT Interval 378 ms QTC Interval 462 ms P [place] 28 degrees R AXIS (MCT) -4 degrees T Wave [place] 21 degrees [place] Diagnosis Normal sinus rhythm Septal infarct , age undetermined Abnormal ECG When compared with ECG of 04-DEC-2024 20:08, Septal infarct is now present Nonspecific T wave abnormality no longer evident in Anterior leads Glucose, Nova Meter Status: Abnormal Collection Time: 12/06/24 4:06 PM Result Value Ref Range POC-GLUCOSE 134 (H) 70 - 110 mg/dL Raisin Washer [id number] Glucose, Nova Meter Status: Abnormal Collection Time: 12/06/24 7:26 PM Result Value Ref Range POC-GLUCOSE 170 (H) 70 - 110 mg/dL Raisin Washer [id number] CBC - Hemogram (-[facility]) Status: Abnormal Collection Time: 12/07/24 3:59 [...] POC-GLUCOSE 159 (H) 70 - 110 mg/dL Raisin Washer [id number] XR chest AP portable Narrative: PORTABLE CHEST; [...] for GFR - No emergent need of HEAD ATHLETIC TRAINER/STRENGTH COACH - Monitor H/H and transfuse for Hgb [...] admitted on: 11/30/2024 1:43 AM. presented to [facility] with swollen abdomen, abdominal discomfort and bilateral lower extremity pitting edema. Patient's BUN/creatinine elevated, and patient subsequently transferred to [facility] for hepatorenal syndrome evaluation. Admits to 4 [...] Culture And Stain AFB Culture And Stain [facility] Non-Tube Wrapper Cytology [facility] Non-Tube Wrapper Cytology DIFFERENTIAL, BODY FLUID DIFFERENTIAL, BODY FLUID Body Fluid/CSF - Path Review () Body Fluid/CSF - Path Review () [facility] BONE MARROW SMEAR, ASPIRATION, AND STAIN [facility] BONE MARROW SMEAR, ASPIRATION, AND STAIN [...] BODY REMOVAL; Surgeon: Scott Daley MD; Location: [facility]; Service: Gastroenterology; Laterality: N/A; Allergies: [...] Normal range of motion. Integumentary: Warm, Dry, Exline. Neurologic: No obvious focal deficit Psychiatric: Cooperative, Appropriate mood & affect. Labs, Imaging, and Other Studies: Echo Results (last 7 days) Procedure Component Value Units Date/Time ECHO COMPLETE (DOPPLER / COLOR) W OR WO CONTRAST [[id number]] Collected: 11/30/24724 Order Status: Completed Updated: 11/30/241045 Narrative: TRANSTHORACIC ECHOCARDIOGRAPHY REPORT Demographics Patient Name: RIN JONES : 1960 Age: 64 year(s) Corporate ID Number: [id number] Gender Female Ramp Attendant: Giovanna Rock Height: 67 inches [facility] Referring Physician: HUEY HURTADO Weight: [...] 1.35 m/s E/A ratio: 0.97 m/s Volume ozzobldvu309.99 LV length: 8.51 cm ml Volume pzwrkygb27.96 ml LVOT diameter: 1.79 cm Normal sized [...] Valve TR velocity: 2.51 m/s TR gradient: 25.31214 mmHg Estimated RAP: 3 mmHg RVSP: 28.12 [...] (DOPPLER / COLOR) W OR WO CONTRAST [[id number]] Collected: 11/30/24724 Order Status: Completed Updated: 11/30/24 1046 Narrative: TRANSTHORACIC ECHOCARDIOGRAPHY REPORT Demographics Patient Name: RIN JONES : 1960 Age: 64 year(s) Corporate ID Number: [id number] Gender Female Ramp Attendant: Giovanna Rock Height: 67 inches [facility] Referring Physician: HUEY HURTADO Weight: [...] 1.35 m/s E/A ratio: 0.97 m/s Volume ckninqofo767.99 LV length: 8.51 cm ml Volume qppetqsj63.96 ml LVOT diameter: 1.79 cm Normal sized [...] Valve TR velocity: 2.51 m/s TR gradient: 25.09984 mmHg Estimated RAP: 3 mmHg RVSP: 28.12 [...] imaging. Assessment and Plan: *Paroxysmal Atrial Fib [id number] of 2 also have some wide-complex tachycardia [...] POC-GLUCOSE 140 (H) 70 - 110 mg/dL Raisin Washer [id number] Glucose, Nova Meter Status: Abnormal Collection Time: 12/05/24 7:21 PM Result Value Ref Range POC-GLUCOSE 145 (H) 70 - 110 mg/dL Raisin Washer [id number] CBC - Hemogram ([facility]) Status: Abnormal Collection [...] POC-GLUCOSE 143 (H) 70 - 110 mg/dL Raisin Washer [id number] Glucose, Nova Meter Status: Abnormal Collection Time: 12/06/24 10:36 AM Result Value Ref Range POC-GLUCOSE 150 (H) 70 - 110 mg/dL Raisin Washer [id number] ECG 12 lead Status: None (In process) Collection Time: 12/06/24 1:16 PM Result Value Ref Range VENTRICULAR RATE EKG/MIN 90 BPM ATRIAL RATE (MCT) 90 BPM ID Interval 142 ms QRS-INTERVAL (MSEC) 92 ms QT Interval 378 ms QTC Interval 462 ms P [place] 28 degrees R AXIS (MCT) -4 degrees T Wave [place] 21 degrees [place] Diagnosis Normal sinus rhythm Septal infarct , [...] OT Monitor kidney function No emergent dialysis online advertising manager consulted Discharge Planning: Patient can be [...] +++ Pedal edema , no cyanosis DIRECTOR MOBILE: Alert, No focal deficit noted grossly Psy: Cooperative Labs: Results for orders placed or performed during the hospital encounter of 11/30/24 (from the past 24 hours) Glucose, Nova Meter Status: Abnormal Collection Time: 12/05/24 10:23 AM Result Value Ref Range POC-GLUCOSE 141 (H) 70 - 110 mg/dL Raisin Washer [id number] Hemoglobin Status: Abnormal Collection Time: 12/05/24 3:36 PM Result Value Ref Range Hemoglobin 8.1 (L) 11.2 - 15.7 GM/DL Glucose, Nova Meter Status: Abnormal Collection Time: 12/05/24 5:01 PM Result Value Ref Range POC-GLUCOSE 140 (H) 70 - 110 mg/dL Raisin Washer [id number] Glucose, Nova Meter Status: Abnormal Collection Time: 12/05/24 7:21 PM Result Value Ref Range POC-GLUCOSE 145 (H) 70 - 110 mg/dL Raisin Washer [id number] CBC - Hemogram ([facility]) Status: Abnormal Collection [...] POC-GLUCOSE 143 (H) 70 - 110 mg/dL Raisin Washer [id number] XR chest AP portable Narrative: PORTABLE CHEST [...] for GFR - No emergent need of HEAD ATHLETIC TRAINER/STRENGTH COACH - Monitor H/H and transfuse for Hgb less than 7.0 - Serologic workup pending Discussed with patient * Blanka Malagon MD - 12/06/2024 8:20 AM EDT Images from the original note were not included. PULMONARY AND CRITICAL CARE Consult Note Date of Service: 12/06/2024 HPI: This is a 64 y.o. year old female with past medical history as below. She initially presented to [facility] with swollen abdomen, abdominal discomfort, and bilateral lower extremity pain. Her creatinine was elevated and as a result, she was transferred to [facility] for he patorenal syndrome. Upon arrival [...] BODY REMOVAL; Surgeon: Scott Daley MD; Location: [facility]; Service: Gastroenterology; Laterality: N/A; Allergies: [...] POC-GLUCOSE 141 (H) 70 - 110 mg/dL Raisin Washer [id number] Hemoglobin Status: Abnormal Collection Time: 12/05/24 3:36 PM Result Value Ref Range Hemoglobin 8.1 (L) 11.2 - 15.7 GM/DL Glucose, Nova Meter Status: Abnormal Collection Time: 12/05/24 5:01 PM Result Value Ref Range POC-GLUCOSE 140 (H) 70 - 110 mg/dL Raisin Washer [id number] Glucose, Nova Meter Status: Abnormal Collection Time: 12/05/24 7:21 PM Result Value Ref Range POC-GLUCOSE 145 (H) 70 - 110 mg/dL Raisin Washer [id number] CBC - Hemogram ([facility]) Status: Abnormal Collection [...] POC-GLUCOSE 143 (H) 70 - 110 mg/dL Raisin Washer [id number] Radiology Radiology Results (last day) Procedure Component Value Units Date/Time XR chest AP portable [[id number]] Resulted: 12/06/24 0806 Order Status: Sent Updated: 12/06/24 08 Microbiology: Microbiology Results (last 7 days) Procedure Component Value Units Date/Time Anaerobic Culture [[id number]] Collected: 11/30/24 1603 Order Status: Completed Specimen: Peritoneal Fluid from Body Fluid Updated: 12/05/24 0634 Result No Anaerobic growth Narrative: Specimen Description: peritoneal fluid Blood Culture [[id number]] Collected: 11/30/24 0340 Order Status: Completed Specimen: Blood from Arm, Left Updated: 12/05/24 0501 Result No growth in 5 days Blood Culture [[id number]] Collected: 11/30/24 0342 Order Status: Completed Specimen: Blood from Arm, Right Updated: 12/05/24 0501 Result No growth in 5 days Body Fluid Culture + Gram Stain [[id number]] Collected: 11/30/24 1603 Order Status: Completed Specimen: Peritoneal Fluid from Body Fluid Updated: 12/03/24 0907 Result No growth Gram Stain Result No organisms seen No cells seen Narrative: Specimen Description: peritoneal fluid Body Fluid/CSF - Path Review () [[id number]] Collected: 11/30/24 1603 Order Status: Completed Specimen: Peritoneal Fluid from Body Fluid Updated: 12/03/24 0654 SENT TO PATHOLOGY FOR REVIEW Yes Scan Result Mesothelial cells. MD German 12/02/2024 AFB Culture And Stain [[id number]] Collected: 11/30/24 1603 Order Status: Completed Specimen: Peritoneal Fluid from Body Fluid Updated: 12/01/24 1410 AFB Smear No acid fast bacilli seen Narrative: Specimen Description: peritoneal fluid Glucose, body fluid [[id number]] Collected: 11/30/24 1603 Order Status: Completed Specimen: Body Fluid from Peritoneal Fluid Updated: 12/01/24 0710 Glucose, Body Fluid 107 mg/dL BODY FLUID TYPE Peritoneal Narrative: This test has been modified from the fishing rod assembler's instructions and its performance characteristics were determined by the laboratory. The reference intervals and other method performance specifications are unavailable for this test. It is recommended to interpret body fluid concentrations in comparison with the corresponding serum or plasma concentrations and to integrate test results into the clinical context. Protein, body fluid [[id number]] Collected: 11/30/241602 Order Status: Completed Specimen: Body Fluid from Peritoneal Fluid Updated: 12/01/24 0710 Protein, Fluid 1.9 g/dL BODY FLUID TYPE Peritoneal Narrative: This test has been modified from the fishing rod assembler's instructions and its performance characteristics were determined by the laboratory. The reference intervals and other method performance specifications are unavailable for this test. It is recommended to interpret body fluid concentrations in comparison with the corresponding serum or plasma concentrations and to integrate test results into the clinical context. Urine Culture [[id number]] Collected: 11/30/24 1135 Order Status: Completed Specimen: Urine, Clean Catch Updated: 12/01/24648 Result Recollect Specimen - 3 or more organisms suggests contamination Body fluid cell count with differential [[id number]] (Abnormal) Collected: 11/30/241602 Order Status: Completed Specimen: [...] fluids are not defined. DIFFERENTIAL, BODY FLUID [[id number]] Collected: 11/30/241602 Order Status: Completed Specimen: Peritoneal Fluid from Body Fluid Updated: 11/30/242048 Neutrophils Fluid 5 % Lymphocytes Fluid 46 % Unidentified Mononuclear Cells BF 49 % Lactate dehydrogenase (LDH), body fluid [[id number]] Collected: 11/30/241602 Order Status: Completed Specimen: Peritoneal Fluid from Body Fluid Updated: 05/06/25 1819 LDH, Fluid 71 U/L BODY FLUID TYPE Peritoneal Narrative: This test has been modified from the fishing rod assembler's instructions and its performance characteristics were determined by the laboratory. The reference intervals and other method performance specifications are unavailable for this test. It is recommended to interpret body fluid concentrations in comparison with the corresponding serum or plasma concentrations and to integrate test results into the clinical context. Fungus Culture W/ROSA MARIA Or Nimisha Ink [[id number]] Collected: 11/30/24 1603 Order Status: Completed Specimen: Peritoneal Fluid from Body Fluid Updated: 11/30/24 1754 ROSA MARIA Prep No fungal elements seen Narrative: Specimen Description: peritoneal fluid Total Protein, Body Fluid(SENDOUT) [[id number]] Collected: 11/30/24 1603 Order Status: Canceled Specimen: Peritoneal Fluid from Body Fluid Updated: 11/30/24 1634 Glucose Body Fluid(SENDOUT) [[id number]] Collected: 11/30/24 1603 Order Status: Canceled Specimen: Peritoneal Fluid from Body Fluid Updated: 11/30/24 1634 Urine Culture [[id number]] Collected: 11/30/24 1135 Order Status: Canceled Specimen: [...] to continue with albumin/diuretics no indication for HEAD ATHLETIC TRAINER/STRENGTH COACH Oxygenation improved 3 L nasal cannula, leg [...] personally evaluated the patient and performed a nyrf-nj-ohvc diagnostic evaluation on this patient; I have reviewed history, performed physical examination, reviewed laboratory studies. , andreviewed images independent of radiologist. I have actively directed the medical care, formulated assessemnt and plan of care. Patient requires a high complexity of decision making for assessment. 46 minutes pulmonary care clinical time was spent. Voice geriatric nurse practitioner technology ([employer]) is used for dictation of this note and sound-alike words might be erroneously placed despite reviewing the note for accuracy.Errors in dictation may reflect use of voice recognition software and not all errors in geriatric nurse practitioner may have been detectedprior to signing * [...] admitted on: 11/30/2024 1:43 AM. presented to [facility] with swollen abdomen, abdominal discomfort and bilateral lower extremity pitting edema. Patient's BUN/creatinine elevated, and patient subsequently transferred to [facility] for hepatorenal syndrome evaluation. Admits to 4 [...] g 25 g intravenous Q6H [facility] Timothy Bai MD 25 g at 12/05/24 [...] Stain Anaerobic Culture Anaerobic Culture Fungus Culture W/ROSAM ARIA Or Nimisha Ink Fungus Culture W/ROSA MARIA Or Nimisha Ink AFB Culture And Stain AFB Culture And Stain [facility] Non-Tube Wrapper Cytology [facility] Non-Tube Wrapper Cytology DIFFERENTIAL, BODY FLUID DIFFERENTIAL, BODY FLUID Body Fluid/CSF - Path Review () Body Fluid/CSF - Path Review () [facility] BONE MARROW SMEAR, ASPIRATION, AND STAIN [facility] BONE MARROW SMEAR, ASPIRATION, AND STAIN [...] BODY REMOVAL; Surgeon: Scott Daley MD; Location: [facility]; Service: Gastroenterology; Laterality: N/A; Allergies: [...] Normal range of motion. Integumentary: Warm, Dry, Exline. Neurologic: No obvious focal deficit Psychiatric: Cooperative, Appropriate mood & affect. Labs, Imaging, and Other Studies: Echo Results (last 7 days) Procedure Component Value Units Date/Time ECHO COMPLETE (DOPPLER / COLOR) W OR WO CONTRAST [[id number]] Collected: 11/30/24 0725 Order Status: Completed Updated: 11/30/24 1046 Narrative: TRANSTHORACIC ECHOCARDIOGRAPHY REPORT Demographics Patient Name: RIN JONES : 1960 Age: 64 year(s) Corporate ID Number: [id number] Gender Female Ramp Attendant: Giovanna Pranav Height: 67 inches RDCS Referring Physician: HUEY HURTADO Weight: 225 pounds Interpreting JESSICA RAYMOND MD BMI: 35.24 kg/m^2 Physician: Date of Service: 11/30/2024 Blood Pressure: 118/59 mmHg Room Number: 579 Type of Study: TTE procedure: ECHO COMPLETE (DOPPLER / COLOR) W OR WO CONTRAST. Patient Status: Routine [facility] History/Tech Notes: Indication: [...] .99 LV length: 8.51 cm ml Volume ukeovucq18.96 ml LVOT diameter: 1.79 cm Normal sized [...] Valve TR velocity: 2.51 m/s TR gradient: 25.16280 mmHg Estimated RAP: 3 mmHg RVSP: 28.12 [...] (DOPPLER / COLOR) W OR WO CONTRAST [[id number]] Collected: 11/30/24724 Order Status: Completed Updated: 11/30/24 1046 Narrative: TRANSTHORACIC ECHOCARDIOGRAPHY REPORT Demographics Patient Name: RIN JONES : 1960 Age: 64 year(s) Corporate ID Number: [id number] Gender Female Ramp Attendant: Giovanna Rock Height: 67 inches [facility] Referring Physician: HUEY HRUTADO Weight: 225 pounds Interpreting JESSICA RAYMOND MD [...] 1.35 m/s E/A ratio: 0.97 m/s Volume dyxdkoohj923.99 LV length: 8.51 cm ml Volume niugwacg71.96 ml LVOT diameter: 1.79 cm Normal sized [...] Valve TR velocity: 2.51 m/s TR gradient: 25.22826 mmHg Estimated RAP: 3 mmHg RVSP: 28.12 [...] imaging. Assessment and Plan: *Paroxysmal Atrial Fib [id number] of 2 also have some wide-complex tachycardia [...] BODY REMOVAL; Surgeon: Scott Daley MD; Location: [facility]; Service: Gastroenterology; Laterality: N/A; General [...] Mobility Not assessed, patient ambulatory. Outcome Measures [facility] Basic Mobility Inpatient Short Form How much [...] +++ Pedal edema , no cyanosis DIRECTOR MOBILE: Alert, No focal deficit noted grossly Psy: Cooperative Labs: Results for orders placed or performed during the hospital encounter of 11/30/24 (from the past 24 hours) Glucose, Nova Meter Status: Abnormal Collection Time: 12/04/24 10:52 AM Result Value Ref Range POC-GLUCOSE 136 (H) 70 - 110 mg/dL Raisin Washer [id number] Basic Metabolic Panel Status: Abnormal Collection Time: [...] POC-GLUCOSE 137 (H) 70 - 110 mg/dL Raisin Washer [id number] ECG 12 lead Status: None (In process) Collection Time: 12/04/24 8:08 PM Result Value Ref Range SYSTOLIC BLOOD PRESSURE (MCT) 133 mmHg DIASTOLIC BLOOD PRESSURE (MCT) 61 mmHg VENTRICULAR RATE EKG/MIN 85 BPM ATRIAL RATE (MCT) 85 BPM ID Interval 140 ms QRS-INTERVAL (MSEC) 94 ms QT Interval 426 ms QTC Interval 506 ms P [place] 44 degrees R AXIS (MCT) 27 degrees T Wave [place] -27 degrees [place] Diagnosis Normal sinus rhythm Nonspecific T wave abnormality Abnormal ECG When compared with ECG of 04-DEC-2024 03:25, QT has lengthened Glucose, Nova Meter Status: Abnormal Collection Time: 12/04/24 10:20 PM Result Value Ref Range POC-GLUCOSE 147 (H) 70 - 110 mg/dL Raisin Washer [id number] Hemoglobin Status: Abnormal Collection Time: 12/04/24 11:54 [...] POC-GLUCOSE 123 (H) 70 - 110 mg/dL Raisin Washer [id number] XR chest AP portable Narrative: PORTABLE CHEST [...] renal function - No emergent need of HEAD ATHLETIC TRAINER/STRENGTH COACH - Monitor H/H and transfuse for Hgb [...] history as below. She initially presented to [facility] with swollen abdomen, abdominal discomfort, and bilateral lower extremity pain. Her creatinine was elevated and as a result, she was transferred to [facility] for he patorenal syndrome. Upon arrival [...] BODY REMOVAL; Surgeon: Scott Daley MD; Location: [facility]; Service: Gastroenterology; Laterality: N/A; Allergies: [...] POC-GLUCOSE 136 (H) 70 - 110 mg/dL Raisin Washer [id number] Basic Metabolic Panel Status: Abnormal Collection Time: [...] POC-GLUCOSE 137 (H) 70 - 110 mg/dL Raisin Washer [id number] ECG 12 lead Status: None (In process) Collection Time: 12/04/24 8:08 PM Result Value Ref Range SYSTOLIC BLOOD PRESSURE (MCT) 133 mmHg DIASTOLIC BLOOD PRESSURE (MCT) 61 mmHg VENTRICULAR RATE EKG/MIN 85 BPM ATRIAL RATE (MCT) 85 BPM ID Interval 140 ms QRS-INTERVAL (MSEC) 94 ms QT Interval 426 ms QTC Interval 506 ms P [place] 44 degrees R AXIS (MCT) 27 degrees T Wave [place] -27 degrees [place] Diagnosis Normal sinus rhythm Nonspecific T wave abnormality Abnormal ECG When compared with ECG of 04-DEC-2024 03:25, QT has lengthened Glucose, Nova Meter Status: Abnormal Collection Time: 12/04/24 10:20 PM Result Value Ref Range POC-GLUCOSE 147 (H) 70 - 110 mg/dL Raisin Washer [id number] Hemoglobin Status: Abnormal Collection Time: 12/04/24 11:54 [...] POC-GLUCOSE 123 (H) 70 - 110 mg/dL Raisin Washer [id number] Radiology Radiology Results (last day) Procedure Component Value Units Date/Time XR chest AP portable [[id number]] Collected: 12/04/24 0923 Order Status: Completed Updated: [...] Procedure Component Value Units Date/Time Anaerobic Culture [[id number]] Collected: 11/30/24 1603 Order Status: Completed Specimen: Peritoneal Fluid from Body Fluid Updated: 12/05/24 0634 Result No Anaerobic growth Narrative: Specimen Description: peritoneal fluid Blood Culture [[id number]] Collected: 11/30/24 0340 Order Status: Completed Specimen: Blood from Arm, Left Updated: 12/05/24 0501 Result No growth in 5 days Blood Culture [[id number]] Collected: 11/30/24 0342 Order Status: Completed Specimen: Blood from Arm, Right Updated: 12/05/24 0501 Result No growth in 5 days Body Fluid Culture + Gram Stain [[id number]] Collected: 11/30/24 1603 Order Status: Completed Specimen: Peritoneal Fluid from Body Fluid Updated: 12/03/24 0907 Result No growth Gram Stain Result No organisms seen No cells seen Narrative: Specimen Description: peritoneal fluid Body Fluid/CSF - Path Review () [[id number]] Collected: 11/30/24 1603 Order Status: Completed Specimen: Peritoneal Fluid from Body Fluid Updated: 12/03/24 0654 SENT TO PATHOLOGY FOR REVIEW Yes Scan Result Mesothelial cells. MD German 12/02/2024 AFB Culture And Stain [[id number]] Collected: 11/30/24 1603 Order Status: Completed Specimen: Peritoneal Fluid from Body Fluid Updated: 12/01/24 1410 AFB Smear No acid fast bacilli seen Narrative: Specimen Description: peritoneal fluid Glucose, body fluid [[id number]] Collected: 11/30/241602 Order Status: Completed Specimen: Body Fluid from Peritoneal Fluid Updated: 12/01/24709 Glucose, Body Fluid 107 mg/dL BODY FLUID TYPE Peritoneal Narrative: This test has been modified from the fishing rod assembler's instructions and its performance characteristics were determined by the laboratory. The reference intervals and other method performance specifications are unavailable for this test. It is recommended to interpret body fluid concentrations in comparison with the corresponding serum or plasma concentrations and to integrate test results into the clinical context. Protein, body fluid [[id number]] Collected: 11/30/241602 Order Status: Completed Specimen: Body Fluid from Peritoneal Fluid Updated: 12/01/24709 Protein, Fluid 1.9 g/dL BODY FLUID TYPE Peritoneal Narrative: This test has been modified from the fishing rod assembler's instructions and its performance characteristics were determined by the laboratory. The reference intervals and other method performance specifications are unavailable for this test. It is recommended to interpret body fluid concentrations in comparison with the corresponding serum or plasma concentrations and to integrate test results into the clinical context. Urine Culture [[id number]] Collected: 11/30/24 1135 Order Status: Completed Specimen: Urine, Clean Catch Updated: 12/01/24648 Result Recollect Specimen - 3 or more organisms suggests contamination Body fluid cell count with differential [[id number]] (Abnormal) Collected: 11/30/241602 Order Status: Completed Specimen: [...] fluids are not defined. DIFFERENTIAL, BODY FLUID [[id number]] Collected: 11/30/241602 Order Status: Completed Specimen: Peritoneal Fluid from Body Fluid Updated: 11/30/242048 Neutrophils Fluid 5 % Lymphocytes Fluid 46 % Unidentified Mononuclear Cells BF 49 % Lactate dehydrogenase (LDH), body fluid [[id number]] Collected: 11/30/24 1603 Order Status: Completed Specimen: Peritoneal Fluid from Body Fluid Updated: 11/30/24 1819 LDH, Fluid 71 U/L BODY FLUID TYPE Peritoneal Narrative: This test has been modified from the fishing rod assembler's instructions and its performance characteristics were determined by the laboratory. The reference intervals and other method performance specifications are unavailable for this test. It is recommended to interpret body fluid concentrations in comparison with the corresponding serum or plasma concentrations and to integrate test results into the clinical context. Fungus Culture W/ROSA MARIA Or Nimisha Ink [[id number]] Collected: 11/30/24 1603 Order Status: Completed Specimen: Peritoneal Fluid from Body Fluid Updated: 11/30/24 1754 ROSA MARIA Prep No fungal elements seen Narrative: Specimen Description: peritoneal fluid Total Protein, Body Fluid(SENDOUT) [[id number]] Collected: 11/30/24 1603 Order Status: Canceled Specimen: Peritoneal Fluid from Body Fluid Updated: 11/30/24 1634 Glucose Body Fluid(SENDOUT) [[id number]] Collected: 11/30/24 1603 Order Status: Canceled Specimen: Peritoneal Fluid from Body Fluid Updated: 11/30/24 1634 Urine Culture [[id number]] Collected: 11/30/24 1135 Order Status: Canceled Specimen: [...] and lisinopril. Per nephrology there is no HEAD ATHLETIC TRAINER/STRENGTH COACH indication at this time. Ultrasound renal on [...] multidisciplinary team including nurse practitioner, nurse, RT, package dyeing machine operator, pharmacist, and case management during multidisciplinary round. I Dr.Hazim Jeramy MD, have personally evaluated the patient and performed a grgn-do-gnwh diagnostic evaluation on this patient; I have Obtained history, performed physical examination, reviewed laboratory studies. I have reviewed images independent of radiologist. I have actively directed the medical care, formulated diagnosis, and the plan of care. Patient requires a high complexity of decision making for assessment. Voice geriatric nurse practitioner technology ([employer]) is used for dictation of this note and sound-alike words might be erroneously placed despite reviewing the note for accuracy. Errors in dictation may reflect use of voice recognition software and not all errors in geriatric nurse practitioner may have been detected prior to signing. [...] POC-GLUCOSE 136 (H) 70 - 110 mg/dL Raisin Washer [id number] Basic Metabolic Panel Status: Abnormal Collection Time: [...] POC-GLUCOSE 137 (H) 70 - 110 mg/dL Raisin Washer [id number] ECG 12 lead Status: None (In process) Collection Time: 12/04/24 8:08 PM Result Value Ref Range SYSTOLIC BLOOD PRESSURE (MCT) 133 mmHg DIASTOLIC BLOOD PRESSURE (MCT) 61 mmHg VENTRICULAR RATE EKG/MIN 85 BPM ATRIAL RATE (MCT) 85 BPM ID Interval 140 ms QRS-INTERVAL (MSEC) 94 ms QT Interval 426 ms QTC Interval 506 ms P [place] 44 degrees R AXIS (MCT) 27 degrees T Wave [place] -27 degrees [place] Diagnosis Normal sinus rhythm Nonspecific T wave abnormality Abnormal ECG When compared with ECG of 04-DEC-2024 03:25, QT has lengthened Glucose, Nova Meter Status: Abnormal Collection Time: 12/04/24 10:20 PM Result Value Ref Range POC-GLUCOSE 147 (H) 70 - 110 mg/dL Raisin Washer [id number] Hemoglobin Status: Abnormal Collection Time: 12/04/24 11:54 [...] admitted on: 11/30/2024 1:43 AM. presented to [facility] with swollen abdomen, abdominal discomfort and bilateral lower extremity pitting edema. Patient's BUN/creatinine elevated, and patient subsequently transferred to [facility] for hepatorenal syndrome evaluation. Admits to 4 [...] 25% 25 g intravenous Q6H [facility] amiodarone 150 mg intravenous Once atorvastatin 20 [...] g 25 g intravenous Q6H [facility] Timothy Bai MD albuterol 2.5 mg /3 [...] intravenous Q24H MD Barney IVPB Stopped at 12/03/245 dextrose 50% (D50W) injection 25 g 25 [...] Culture And Stain AFB Culture And Stain [facility] Non-Tube Wrapper Cytology [facility] Non-Tube Wrapper Cytology DIFFERENTIAL, BODY FLUID DIFFERENTIAL, BODY FLUID Body Fluid/CSF - Path Review () Body Fluid/CSF - Path Review () [facility] BONE MARROW SMEAR, ASPIRATION, AND STAIN [facility] BONE MARROW SMEAR, ASPIRATION, AND STAIN [...] BODY REMOVAL; Surgeon: Scott Daley MD; Location: [facility]; Service: Gastroenterology; Laterality: N/A; Allergies: [...] Normal range of motion. Integumentary: Warm, Dry, Exline. Neurologic: No obvious focal deficit Psychiatric: Cooperative, Appropriate mood & affect. Labs, Imaging, and Other Studies: Echo Results (last 7 days) Procedure Component Value Units Date/Time ECHO COMPLETE (DOPPLER / COLOR) W OR WO CONTRAST [[id number]] Collected: 11/30/24724 Order Status: Completed Updated: 11/30/241045 Narrative: TRANSTHORACIC ECHOCARDIOGRAPHY REPORT Demographics Patient Name: RIN JONES : 1960 Age: 64 year(s) Corporate ID Number: [id number] Gender Female Ramp Attendant: Giovanna Rock Height: 67 inches [facility] Referring Physician: HUEY HURTADO Weight: [...] 1.35 m/s E/A ratio: 0.97 m/s Volume zufyutjmi999.99 LV length: 8.51 cm ml Volume sbsvtnet86.96 ml LVOT diameter: 1.79 cm Normal sized [...] Valve TR velocity: 2.51 m/s TR gradient: 25.00620 mmHg Estimated RAP: 3 mmHg RVSP: 28.12 [...] (DOPPLER / COLOR) W OR WO CONTRAST [[id number]] Collected: 11/30/24 0725 Order Status: Completed Updated: 11/30/24 1046 Narrative: TRANSTHORACIC ECHOCARDIOGRAPHY REPORT Demographics Patient Name: RIN JONES : 1960 Age: 64 year(s) Corporate ID Number: [id number] Gender Female Ramp Attendant: Giovanna Rock Height: 67 inches [facility] Referring Physician: HUEY HURTADO Weight: 225 pounds Interpreting JESSICA RAYMOND MD BMI: 35.24 kg/m^2 Physician: Date of Service: 11/30/2024 Blood Pressure: 118/59 mmHg Room Number: 579 Type of Study: TTE procedure: ECHO COMPLETE (DOPPLER / COLOR) W OR WO CONTRAST. Patient Status: Routine IP Study Location[facility] Quality: Adequate visualization History/Tech Notes: Indication: [...] 1.35 m/s E/A ratio: 0.97 m/s Volume rcssdnifh831.99 LV length: 8.51 cm ml Volume yjzqnbaj91.96 ml LVOT diameter: 1.79 cm Normal sized [...] Valve TR velocity: 2.51 m/s TR gradient: 25.14231 mmHg Estimated RAP: 3 mmHg RVSP: 28.12 [...] imaging. Assessment and Plan: *Paroxysmal Atrial Fib [id number] of 2 also have some wide-complex tachycardia [...] 97 BPM ATRIAL RATE (MCT) 97 BPM ID Interval 150 ms QRS-INTERVAL (MSEC) 88 ms QT Interval 362 ms QTC Interval 459 ms P [place] 40 degrees R AXIS (MCT) 8 degrees T Wave [place] -8 degrees [place] Diagnosis Normal sinus rhythm Normal ECG No previous ECGs available Confirmed by DEYSI FOSS M.D. ([id number]) on 12/03/2024 5:59:01 PM Glucose, Nova Meter Status: Abnormal Collection Time: 12/03/24 10:45 AM Result Value Ref Range POC-GLUCOSE 156 (H) 70 - 110 mg/dL Raisin Washer [id number] ECG 12 lead Status: None Collection Time: 12/03/24 2:16 PM Result Value Ref Range VENTRICULAR RATE EKG/MIN 136 BPM ATRIAL RATE (MCT) 73 BPM QRS-INTERVAL (MSEC) 88 ms QT Interval 304 ms QTC Interval 457 ms R AXIS (MCT) -11 degrees T Wave [place] -58 degrees [place] Diagnosis Atrial fibrillation with rapid ventricular response Possible Anterolateral infarct , age undetermined Possible abberancy Confirmed by DEYSI FOSS M.D. ([id number]) on 12/03/2024 5:58:45 PM Glucose, Nova Meter Status: Abnormal Collection Time: 12/03/24 5:19 PM Result Value Ref Range POC-GLUCOSE 146 (H) 70 - 110 mg/dL Raisin Washer [id number] Glucose, Nova Meter Status: Abnormal Collection Time: 12/03/24 9:41 PM Result Value Ref Range POC-GLUCOSE 146 (H) 70 - 110 mg/dL Raisin Washer [id number] Hemoglobin Status: Abnormal Collection Time: 12/04/24 1:04 AM Result Value Ref Range Hemoglobin 9.0 (L) 11.2 - 15.7 GM/DL ECG 12 lead Status: None (In process) Collection Time: 12/04/24 3:25 AM Result Value Ref Range SYSTOLIC BLOOD PRESSURE (MCT) 165 mmHg DIASTOLIC BLOOD PRESSURE (MCT) 77 mmHg VENTRICULAR RATE EKG/MIN 80 BPM ATRIAL RATE (MCT) 80 BPM ID Interval 154 ms QRS-INTERVAL (MSEC) 76 ms QT Interval 380 ms QTC Interval 438 ms P [place] 47 degrees R AXIS (MCT) 44 degrees T Wave [place] -30 degrees [place] Diagnosis Normal sinus rhythm Low voltage QRS [...] POC-GLUCOSE 155 (H) 70 - 110 mg/dL Raisin Washer [id number] Blood gas, arterial Status: Abnormal Collection Time: [...] ARTERIAL 8.6 (L) 12.0 - 18.0 g/dL [facility] COLLECTION SITE Right Brachial Arterial Puncture Yes Blood Gas O2 Delivery Device Cannula Oxygen Flow Rate 3 Blood Gas PT Temperature C 37.0 Sen's Test Not Applicable Critical Values Notification Critical Blood gas called to DAYANARA MATIAS . Results acknowledged/read back to [id number] and confirmed on 12/04/2024 07:09 ABG Number [...] history as below. She initially presented to [facility] with swollen abdomen, abdominal discomfort, and bilateral lower extremity pain. Her creatinine was elevated and as a result, she was transferred to [facility] for he patorenal syndrome. Upon arrival [...] BODY REMOVAL; Surgeon: Scott Daley MD; Location: [facility]; Service: Gastroenterology; Laterality: N/A; Allergies: [...] 97 BPM ATRIAL RATE (MCT) 97 BPM ID Interval 150 ms QRS-INTERVAL (MSEC) 88 ms QT Interval 362 ms QTC Interval 459 ms P [place] 40 degrees R AXIS (MCT) 8 degrees T Wave [place] -8 degrees [place] Diagnosis Normal sinus rhythm Normal ECG No previous ECGs available Confirmed by DEYSI FOSS M.D. ([id number]) on 12/03/2024 5:59:01 PM Glucose, Nova Meter Status: Abnormal Collection Time: 12/03/24 10:45 AM Result Value Ref Range POC-GLUCOSE 156 (H) 70 - 110 mg/dL Raisin Washer [id number] ECG 12 lead Status: None Collection Time: 12/03/24 2:16 PM Result Value Ref Range VENTRICULAR RATE EKG/MIN 136 BPM ATRIAL RATE (MCT) 73 BPM QRS-INTERVAL (MSEC) 88 ms QT Interval 304 ms QTC Interval 457 ms R AXIS (MCT) -11 degrees T Wave [place] -58 degrees [place] Diagnosis Atrial fibrillation with rapid ventricular response Possible Anterolateral infarct , age undetermined Possible abberancy Confirmed by DEYSI FOSS M.D. ([id number]) on 12/03/2024 5:58:45 PM Glucose, Nova Meter Status: Abnormal Collection Time: 12/03/24 5:19 PM Result Value Ref Range POC-GLUCOSE 146 (H) 70 - 110 mg/dL Raisin Washer [id number] Glucose, Nova Meter Status: Abnormal Collection Time: 12/03/24 9:41 PM Result Value Ref Range POC-GLUCOSE 146 (H) 70 - 110 mg/dL Raisin Washer [id number] Hemoglobin Status: Abnormal Collection Time: 12/04/24 1:04 AM Result Value Ref Range Hemoglobin 9.0 (L) 11.2 - 15.7 GM/DL ECG 12 lead Status: None (In process) Collection Time: 12/04/24 3:25 AM Result Value Ref Range SYSTOLIC BLOOD PRESSURE (MCT) 165 mmHg DIASTOLIC BLOOD PRESSURE (MCT) 77 mmHg VENTRICULAR RATE EKG/MIN 80 BPM ATRIAL RATE (MCT) 80 BPM ID Interval 154 ms QRS-INTERVAL (MSEC) 76 ms QT Interval 380 ms QTC Interval 438 ms P [place] 47 degrees R AXIS (MCT) 44 degrees T Wave [place] -30 degrees [place] Diagnosis Normal sinus rhythm Low voltage QRS [...] POC-GLUCOSE 155 (H) 70 - 110 mg/dL Raisin Washer [id number] Blood gas, arterial Status: Abnormal Collection Time: [...] ARTERIAL 8.6 (L) 12.0 - 18.0 g/dL [facility] COLLECTION SITE Right Brachial Arterial Puncture Yes Blood Gas O2 Delivery Device Cannula Oxygen Flow Rate 3 Blood Gas PT Temperature C 37.0 Sen's Test Not Applicable Critical Values Notification Critical Blood gas called to DAYANARA MATIAS . Results acknowledged/read back to [id number] and confirmed on 12/04/2024 07:09 ABG Number of Draw Attempts 1 FIO2 Blood Gas Temperature Corrected Results No No Radiology Radiology Results (last day) Procedure Component Value Units Date/Time XR chest AP portable [[id number]] Resulted: 12/04/24 075 Order Status: Sent Updated: 12/04/24 075 XR chest AP portable [[id number]] Collected: 12/03/241805 Order Status: Completed Updated: 12/03/248 Narrative: PORTABLE CHEST 12/03/2024 3:53 PM HISTORY: [...] Procedure Component Value Units Date/Time Anaerobic Culture [[id number]] Collected: 11/30/24 1603 Order Status: Completed Specimen: Peritoneal Fluid from Body Fluid Updated: 12/04/24 0754 Result No Anaerobic growth Narrative: Specimen Description: peritoneal fluid Blood Culture [[id number]] Collected: 11/30/24 0340 Order Status: Completed Specimen: Blood from Arm, Left Updated: 12/04/24 0501 Result No growth in 4 days Blood Culture [[id number]] Collected: 11/30/24 0342 Order Status: Completed Specimen: Blood from Arm, Right Updated: 12/04/24 0501 Result No growth in 4 days Body Fluid Culture + Gram Stain [[id number]] Collected: 11/30/24 1603 Order Status: Completed Specimen: Peritoneal Fluid from Body Fluid Updated: 12/03/24 0907 Result No growth Gram Stain Result No organisms seen No cells seen Narrative: Specimen Description: peritoneal fluid Body Fluid/CSF - Path Review (SJ) [[id number]] Collected: 11/30/24 1603 Order Status: Completed Specimen: Peritoneal Fluid from Body Fluid Updated: 12/03/24 0654 SENT TO PATHOLOGY FOR REVIEW Yes Scan Result Mesothelial cells. MD German 12/02/2024 AFB Culture And Stain [[id number]] Collected: 11/30/24 1603 Order Status: Completed Specimen: Peritoneal Fluid from Body Fluid Updated: 12/01/24 1410 AFB Smear No acid fast bacilli seen Narrative: Specimen Description: peritoneal fluid Glucose, body fluid [[id number]] Collected: 11/30/24 1603 Order Status: Completed Specimen: Body Fluid from Peritoneal Fluid Updated: 12/01/24 0710 Glucose, Body Fluid 107 mg/dL BODY FLUID TYPE Peritoneal Narrative: This test has been modified from the fishing rod assembler's instructions and its performance characteristics were determined by the laboratory. The reference intervals and other method performance specifications are unavailable for this test. It is recommended to interpret body fluid concentrations in comparison with the corresponding serum or plasma concentrations and to integrate test results into the clinical context. Protein, body fluid [[id number]] Collected: 11/30/241602 Order Status: Completed Specimen: Body Fluid from Peritoneal Fluid Updated: 12/01/24 0710 Protein, Fluid 1.9 g/dL BODY FLUID TYPE Peritoneal Narrative: This test has been modified from the fishing rod assembler's instructions and its performance characteristics were determined by the laboratory. The reference intervals and other method performance specifications are unavailable for this test. It is recommended to interpret body fluid concentrations in comparison with the corresponding serum or plasma concentrations and to integrate test results into the clinical context. Urine Culture [[id number]] Collected: 11/30/24 1135 Order Status: Completed Specimen: Urine, Clean Catch Updated: 12/01/24648 Result Recollect Specimen - 3 or more organisms suggests contamination Body fluid cell count with differential [[id number]] (Abnormal) Collected: 11/30/241602 Order Status: Completed Specimen: [...] fluids are not defined. DIFFERENTIAL, BODY FLUID [[id number]] Collected: 11/30/241602 Order Status: Completed Specimen: Peritoneal Fluid from Body Fluid Updated: 11/30/242048 Neutrophils Fluid 5 % Lymphocytes Fluid 46 % Unidentified Mononuclear Cells BF 49 % Lactate dehydrogenase (LDH), body fluid [[id number]] Collected: 11/30/241602 Order Status: Completed Specimen: Peritoneal Fluid from Body Fluid Updated: 11/30/24 1819 LDH, Fluid 71 U/L BODY FLUID TYPE Peritoneal Narrative: This test has been modified from the fishing rod assembler's instructions and its performance characteristics were determined by the laboratory. The reference intervals and other method performance specifications are unavailable for this test. It is recommended to interpret body fluid concentrations in comparison with the corresponding serum or plasma concentrations and to integrate test results into the clinical context. Fungus Culture W/ROSA MARIA Or Nimisha Ink [[id number]] Collected: 11/30/24 1603 Order Status: Completed Specimen: Peritoneal Fluid from Body Fluid Updated: 11/30/24 1754 ROSA MARIA Prep No fungal elements seen Narrative: Specimen Description: peritoneal fluid Total Protein, Body Fluid(SENDOUT) [[id number]] Collected: 11/30/24 1603 Order Status: Canceled Specimen: Peritoneal Fluid from Body Fluid Updated: 11/30/24 1634 Glucose Body Fluid(SENDOUT) [[id number]] Collected: 11/30/24 1603 Order Status: Canceled Specimen: Peritoneal Fluid from Body Fluid Updated: 11/30/24 1634 Urine Culture [[id number]] Collected: 11/30/24 1135 Order Status: Canceled Specimen: [...] EP cardiology was consulted. Echocardiogram: Echo on 5/6 showed ejection fraction 55 to 60%, grade [...] and lisinopril. Per nephrology there is no HEAD ATHLETIC TRAINER/STRENGTH COACH indication at this time. Ultrasound renal on [...] multidisciplinary team including nurse practitioner, nurse, RT, package dyeing machine operator, pharmacist, and case management during multidisciplinary round. I Dr.Hazim Jeramy MD, have personally evaluated the patient and performed a [id number] diagnostic evaluation on this patient; I have Obtained history, performed physical examination, reviewed laboratory studies. I have reviewed images independent of radiologist. I have actively directed the medical care, formulated diagnosis, and the plan of care. Patient requires a high complexity of decision making for assessment. Voice geriatric nurse practitioner technology ([employer]) is used for dictation of this note and sound-alike words might be erroneously placed despite reviewing the note for accuracy. Errors in dictation may reflect use of voice recognition software and not all errors in geriatric nurse practitioner may have been detected prior to signing. [...] +++ Pedal edema , no cyanosis DIRECTOR MOBILE: Alert, No focal deficit noted grossly Psy: [...] 97 BPM ATRIAL RATE (MCT) 97 BPM ID Interval 150 ms QRS-INTERVAL (MSEC) 88 ms QT Interval 362 ms QTC Interval 459 ms P [place] 40 degrees R AXIS (MCT) 8 degrees T Wave [place] -8 degrees [place] Diagnosis Normal sinus rhythm Normal ECG No previous ECGs available Confirmed by DEYSI FOSS M.D. ([id number]) on 12/03/2024 5:59:01 PM Glucose, Nova Meter Status: Abnormal Collection Time: 12/03/24 10:45 AM Result Value Ref Range POC-GLUCOSE 156 (H) 70 - 110 mg/dL Raisin Washer [id number] ECG 12 lead Status: None Collection Time: 12/03/24 2:16 PM Result Value Ref Range VENTRICULAR RATE EKG/MIN 136 BPM ATRIAL RATE (MCT) 73 BPM QRS-INTERVAL (MSEC) 88 ms QT Interval 304 ms QTC Interval 457 ms R AXIS (MCT) -11 degrees T Wave [place] -58 degrees [place] Diagnosis Atrial fibrillation with rapid ventricular response Possible Anterolateral infarct , age undetermined Possible abberancy Confirmed by DEYSI FOSS M.D. ([id number]) on 12/03/2024 5:58:45 PM Glucose, Nova Meter Status: Abnormal Collection Time: 12/03/24 5:19 PM Result Value Ref Range POC-GLUCOSE 146 (H) 70 - 110 mg/dL Raisin Washer [id number] Glucose, Nova Meter Status: Abnormal Collection Time: 12/03/24 9:41 PM Result Value Ref Range POC-GLUCOSE 146 (H) 70 - 110 mg/dL Raisin Washer [id number] Hemoglobin Status: Abnormal Collection Time: 12/04/24 1:04 AM Result Value Ref Range Hemoglobin 9.0 (L) 11.2 - 15.7 GM/DL ECG 12 lead Status: None (In process) Collection Time: 12/04/24 3:25 AM Result Value Ref Range SYSTOLIC BLOOD PRESSURE (MCT) 165 mmHg DIASTOLIC BLOOD PRESSURE (MCT) 77 mmHg VENTRICULAR RATE EKG/MIN 80 BPM ATRIAL RATE (MCT) 80 BPM ID Interval 154 ms QRS-INTERVAL (MSEC) 76 ms QT Interval 380 ms QTC Interval 438 ms P [place] 47 degrees R AXIS (MCT) 44 degrees T Wave [place] -30 degrees [place] Diagnosis Normal sinus rhythm Low voltage QRS [...] POC-GLUCOSE 155 (H) 70 - 110 mg/dL Raisin Washer [id number] Blood gas, arterial Status: Abnormal Collection Time: [...] ARTERIAL 8.6 (L) 12.0 - 18.0 g/dL [facility] COLLECTION SITE Right Brachial Arterial Puncture Yes Blood Gas O2 Delivery Device Cannula Oxygen Flow Rate 3 Blood Gas PT Temperature C 37.0 Sen's Test Not Applicable Critical Values Notification Critical Blood gas called to DAYANARA MATIAS . Results acknowledged/read back to [id number] and confirmed on 12/04/2024 07:09 ABG Number [...] 2306 12/02/24 0504 12/02/24 0338 12/01/24 0537 05/02/18 40612/01/24404 NA meq/L -- -- 143 -- -- [...] renal function - No emergent need of HEAD ATHLETIC TRAINER/STRENGTH COACH - Monitor H/H and transfuse for Hgb [...] +++ Pedal edema , no cyanosis DIRECTOR MOBILE: Alert, No focal deficit noted grossly Psy: Cooperative Labs: Results for orders placed or performed during the hospital encounter of 11/30/24 (from the past 24 hours) Glucose, Nova Meter Status: Abnormal Collection Time: 12/02/24 5:18 PM Result Value Ref Range POC-GLUCOSE 128 (H) 70 - 110 mg/dL Raisin Washer [id number] Hemoglobin Status: Abnormal Collection Time: 12/02/24 6:03 PM Result Value Ref Range Hemoglobin 9.1 (L) 11.2 - 15.7 GM/DL Glucose, Nova Meter Status: Abnormal Collection Time: 12/02/24 8:06 PM Result Value Ref Range POC-GLUCOSE 144 (H) 70 - 110 mg/dL Raisin Washer [id number] Hemoglobin Status: Abnormal Collection Time: 12/02/24 11:06 PM Result Value Ref Range Hemoglobin 8.9 (L) 11.2 - 15.7 GM/DL Glucose, Nova Meter Status: Abnormal Collection Time: 12/03/24 1:10 AM Result Value Ref Range POC-GLUCOSE 164 (H) 70 - 110 mg/dL Raisin Washer [id number] Glucose, Nova Meter Status: Abnormal Collection Time: 12/03/24 1:12 AM Result Value Ref Range POC-GLUCOSE 168 (H) 70 - 110 mg/dL Raisin Washer [id number] Glucose, Nova Meter Status: Abnormal Collection Time: 12/03/24 5:13 AM Result Value Ref Range POC-GLUCOSE 142 (H) 70 - 110 mg/dL Raisin Washer [id number] Magnesium Status: Normal Collection Time: 12/03/24 7:39 [...] 97 BPM ATRIAL RATE (MCT) 97 BPM ID Interval 150 ms QRS-INTERVAL (MSEC) 88 ms QT Interval 362 ms QTC Interval 459 ms P [place] 40 degrees R AXIS (MCT) 8 degrees T Wave [place] -8 degrees [place] Diagnosis Normal sinus rhythm Normal ECG No previous ECGs available Glucose, Nova Meter Status: Abnormal Collection Time: 12/03/24 10:45 AM Result Value Ref Range POC-GLUCOSE 156 (H) 70 - 110 mg/dL Raisin Washer [id number] ECG 12 lead Status: None (In process) Collection Time: 12/03/24 2:16 PM Result Value Ref Range VENTRICULAR RATE EKG/MIN 136 BPM ATRIAL RATE (MCT) 73 BPM QRS-INTERVAL (MSEC) 88 ms QT Interval 304 ms QTC Interval 457 ms R AXIS (MCT) -11 degrees T Wave [place] -58 degrees [place] Diagnosis Atrial fibrillation with rapid ventricular response Possible Anterolateral infarct , age undetermined Abnormal ECG When compared with ECG of 03-DEC-2024 10:39, Atrial fibrillation has replaced Sinus rhythm CT bone marrow biopsy Narrative: CT GUIDED BONE MARROW ASPIRATION AND CORE BIOPSY. HISTORY: Pancytopenia. ATTENDING RADIOLOGIST: Dr. Haseeb Gil. PHYSICIAN BEARING MACHINE OPERATOR: Sandra Ramsey PA-C PROCEDURE: After informed [...] renal function - No emergent need of HEAD ATHLETIC TRAINER/STRENGTH COACH - Monitor H/H and transfuse for Hgb less than 7.0 * Brandan Kerr, PT - 12/03/2024 2:16 PM EDT Images from the original note were not included. Inpatient Physical Therapy Attempt to Treat Patient Name: Mary Coronel Birthday: 1960 Date of Attempt: 12/03/2024 Time: [id number]. Gathered subjective history from patient and assessed vitals. Following this, nurse entered room reporting patient was in AFIB with RVR and requested PT hold evaluation at this time. PT will continueto follow. Pt had mobilized earlier this date with OT. Electronically signed by Brandan Kerr, PT - 12/03/2024 - 2:16 PM EDT * Destiney Llanes APRN - 12/03/2024 10:12 AM EDT Name: Mayr Coronel Admit Date: 11/30/2024 LOS: 3 days Location:[id number] PCP on file: [facility] Find-a-Doc Principal Problem: Anasarca ASSESSMENT & [...] Dr. Law Cote on December 07 in [place], [place]. -No evidence of SBP -Continue Lactulose/Xifaxan [...] POC-GLUCOSE 112 (H) 70 - 110 mg/dL Raisin Washer [id number] Glucose, Nova Meter Status: Abnormal Collection Time: 12/02/24 5:18 PM Result Value Ref Range POC-GLUCOSE 128 (H) 70 - 110 mg/dL Raisin Washer [id number] Hemoglobin Status: Abnormal Collection Time: 12/02/24 6:03 PM Result Value Ref Range Hemoglobin 9.1 (L) 11.2 - 15.7 GM/DL Glucose, Nova Meter Status: Abnormal Collection Time: 12/02/24 8:06 PM Result Value Ref Range POC-GLUCOSE 144 (H) 70 - 110 mg/dL Raisin Washer [id number] Hemoglobin Status: Abnormal Collection Time: 12/02/24 11:06 PM Result Value Ref Range Hemoglobin 8.9 (L) 11.2 - 15.7 GM/DL Glucose, Nova Meter Status: Abnormal Collection Time: 12/03/24 1:10 AM Result Value Ref Range POC-GLUCOSE 164 (H) 70 - 110 mg/dL Raisin Washer [id number] Glucose, Nova Meter Status: Abnormal Collection Time: 12/03/24 1:12 AM Result Value Ref Range POC-GLUCOSE 168 (H) 70 - 110 mg/dL Raisin Washer [id number] Glucose, Nova Meter Status: Abnormal Collection Time: 12/03/24 5:13 AM Result Value Ref Range POC-GLUCOSE 142 (H) 70 - 110 mg/dL Raisin Washer [id number] Magnesium Status: Normal Collection Time: 12/03/24 7:39 [...] Value Units Date/Time CT bone marrow biopsy [[id number]] Collected: 12/02/24 152 Order Status: Completed Updated: 12/02/24 155 Narrative: CT GUIDED BONE MARROW ASPIRATION AND CORE BIOPSY. HISTORY: Pancytopenia. ATTENDING RADIOLOGIST: Dr. Haseeb Gil. PHYSICIAN BEARING MACHINE OPERATOR: Sandra Ramsey PA-C PROCEDURE: After informed [...] Transcribed by Sandra Ramsey PA-C. Ultrasound liver [[id number]] Collected: 11/30/241642 Order Status: Completed Updated: 11/30/241654 [...] and dictated by SABINE Yang. US paracentesis [[id number]] Collected: 11/30/24 1637 Order Status: Completed Updated: 11/30/241654 Narrative: ULTRASOUND-GUIDED PARACENTESIS HISTORY: Ascites ATTENDING PHYSICIAN: Dr. Haseeb Gil PHYSICIAN BEARING MACHINE OPERATOR: Gabriel Velasco PA-C FINDINGS: After informed [...] by Gabriel Velasco PA-C. Ultrasound renal limited [[id number]] Collected: 11/30/24 1646 Order Status: Completed Updated: [...] Ronnell Tom MD XR chest AP portable [[id number]] Collected: 11/30/24 1215 Order Status: Completed Updated: [...] AM Result Value Ref Range Issue Date/Time [id number] Product Identification Red Blood Cells Product Code [id number] Status Information Transfused Unit Number [id number] Blood Type 5100 Cross Match Results Compatible Glucose, Nova Meter Status: Abnormal Collection Time: 12/02/24 12:51 PM Result Value Ref Range POC-GLUCOSE 112 (H) 70 - 110 mg/dL Raisin Washer [id number] Glucose, Nova Meter Status: Abnormal Collection Time: 12/02/24 5:18 PM Result Value Ref Range POC-GLUCOSE 128 (H) 70 - 110 mg/dL Raisin Washer [id number] Hemoglobin Status: Abnormal Collection Time: 12/02/24 6:03 PM Result Value Ref Range Hemoglobin 9.1 (L) 11.2 - 15.7 GM/DL Glucose, Nova Meter Status: Abnormal Collection Time: 12/02/24 8:06 PM Result Value Ref Range POC-GLUCOSE 144 (H) 70 - 110 mg/dL Raisin Washer [id number] Hemoglobin Status: Abnormal Collection Time: 12/02/24 11:06 PM Result Value Ref Range Hemoglobin 8.9 (L) 11.2 - 15.7 GM/DL Glucose, Nova Meter Status: Abnormal Collection Time: 12/03/24 1:10 AM Result Value Ref Range POC-GLUCOSE 164 (H) 70 - 110 mg/dL Raisin Washer [id number] Glucose, Nova Meter Status: Abnormal Collection Time: 12/03/24 1:12 AM Result Value Ref Range POC-GLUCOSE 168 (H) 70 - 110 mg/dL Raisin Washer [id number] Glucose, Nova Meter Status: Abnormal Collection Time: 12/03/24 5:13 AM Result Value Ref Range POC-GLUCOSE 142 (H) 70 - 110 mg/dL Raisin Washer [id number] Magnesium Status: Normal Collection Time: 12/03/24 7:39 [...] Pancytopenia. ATTENDING RADIOLOGIST: Dr. Haseeb Gil. PHYSICIAN BEARING MACHINE OPERATOR: Sandra Ramsey PA-C PROCEDURE: After informed [...] BODY REMOVAL; Surgeon: Scott Daley MD; Location: [facility]; Service: Gastroenterology; Laterality: N/A; General [...] socks seated in chair. Pt participated with BUTammie and BLE TE. She tolerated session well [...] in Afib w/RVR and c/o SOB. EP PROFESSIONAL SHOPPER notified.New orders taken. IV Amio 150mg bolus [...] BODY REMOVAL; Surgeon: Scott Daley MD; Location: [facility]; Service: Gastroenterology; Laterality: N/A; Allergies: [...] 19 (L) 12/02/2024 0338 BUN 55.1 (H) 12/02/2024 0338 CREATININE 3.55 (H) 12/02/2024 0338 Component Value Date/Time CALCIUM 7.9 (L) 12/02/2024 0338 ALKPHOS 49 12/02/2024 0338 AST 32 12/02/2024 0338 ALT 8 12/02/2024 0338 BILITOT 0.9 12/02/2024 0338 Radiology Results (last 7 days) Procedure Component Value Units Date/Time CT bone marrow biopsy [[id number]] Collected: 12/02/24 152 Order Status: Completed Updated: 12/02/24 152 Narrative: CT GUIDED BONE MARROW ASPIRATION AND CORE BIOPSY. HISTORY: Pancytopenia. ATTENDING RADIOLOGIST: Dr. Haseeb Gil. PHYSICIAN BEARING MACHINE OPERATOR: Sandra Ramsey PA-C PROCEDURE: After informed [...] by Sandra Ramsey PA-C. Ultrasound renal limited [[id number]] Collected: 11/30/24 164 Order Status: Completed Updated: [...] dictated by Ronnell Tom MD Ultrasound liver [[id number]] Collected: 11/30/24 164 Order Status: Completed Updated: [...] and dictated by SABINE Yang. US paracentesis [[id number]] Collected: 11/30/24 1637 Order Status: Completed Updated: 05/06/25 1655 Narrative: ULTRASOUND-GUIDED PARACENTESIS HISTORY: Ascites ATTENDING PHYSICIAN: Dr. Haseeb Gil PHYSICIAN BEARING MACHINE OPERATOR: Gabriel Velasco PA-C FINDINGS: After informed [...] Gabriel Velasco PA-C. XR chest AP portable [[id number]] Collected: 11/30/24 1215 Order Status: Completed Updated: [...] Transcribed by Marielos Sotelo PA-C. renal complete [[id number]] Order Status: Canceled Assessment Pancytopenia. She had [...] - 3:32 PM EDT * Destiney Llanes, GRAIN BUYER - 12/02/2024 10:15 AM EDT Name: Mary Coronel Admit Date: 11/30/2024 LOS: 2 days Location:[address] [place] [address] PCP on file: [facility] Find-a-Doc Principal Problem: Anasarca ASSESSMENT & [...] Range POC-GLUCOSE 100 70 - 110 mg/dL Raisin Washer [id number] Hemoglobin Status: Abnormal Collection Time: 12/01/24 3:33 PM Result Value Ref Range Hemoglobin 8.0 (L) 11.2 - 15.7 GM/DL Glucose, Nova Meter Status: Abnormal Collection Time: 12/01/24 4:25 PM Result Value Ref Range POC-GLUCOSE 115 (H) 70 - 110 mg/dL Raisin Washer [id number] Glucose, Nova Meter Status: Abnormal Collection Time: 12/01/24 7:34 PM Result Value Ref Range POC-GLUCOSE 128 (H) 70 - 110 mg/dL Raisin Washer [id number] Hemoglobin Status: Abnormal Collection Time: 12/02/24 12:04 [...] POC-GLUCOSE 115 (H) 70 - 110 mg/dL Raisin Washer [id number] Hemoglobin Status: Abnormal Collection Time: 12/02/24 7:40 [...] Product Identification Red Blood Cells Product Code [id number] Status Information Ready for issue Unit Number [id number] Blood Type 5100 Cross Match Results Compatible Radiology Results (last 3 days) Procedure Component Value Units Date/Time Ultrasound liver [[id number]] Collected: 11/30/24 164 Order Status: Completed Updated: [...] and dictated by SABINE Yang. US paracentesis [[id number]] Collected: 11/30/24 1637 Order Status: Completed Updated: 11/30/241654 Narrative: ULTRASOUND-GUIDED PARACENTESIS HISTORY: Ascites ATTENDING PHYSICIAN: Dr. Haseeb Gil PHYSICIAN BEARING MACHINE OPERATOR: Gabriel Velasco PA-C FINDINGS: After informed [...] by Gabriel Velasco PA-C. Ultrasound renal limited [[id number]] Collected: 11/30/24 1646 Order Status: Completed Updated: [...] Ronnell Tom MD XR chest AP portable [[id number]] Collected: 11/30/24 1215 Order Status: Completed Updated: [...] +++ Pedal edema , no cyanosis DIRECTOR MOBILE: Alert, No focal deficit noted grossly Psy: Cooperative Labs: Results for orders placed or performed during the hospital encounter of 11/30/24 (from the past 24 hours) Glucose, Nova Meter Status: None Collection Time: 12/01/24 10:32 AM Result Value Ref Range POC-GLUCOSE 100 70 - 110 mg/dL Raisin Washer [id number] Hemoglobin Status: Abnormal Collection Time: 12/01/24 3:33 PM Result Value Ref Range Hemoglobin 8.0 (L) 11.2 - 15.7 GM/DL Glucose, Nova Meter Status: Abnormal Collection Time: 12/01/24 4:25 PM Result Value Ref Range POC-GLUCOSE 115 (H) 70 - 110 mg/dL Raisin Washer [id number] Glucose, Nova Meter Status: Abnormal Collection Time: 12/01/24 7:34 PM Result Value Ref Range POC-GLUCOSE 128 (H) 70 - 110 mg/dL Raisin Washer [id number] Hemoglobin Status: Abnormal Collection Time: 12/02/24 12:04 [...] POC-GLUCOSE 115 (H) 70 - 110 mg/dL Raisin Washer [id number] Hemoglobin Status: Abnormal Collection Time: 12/02/24 7:40 [...] Ascites ATTENDING PHYSICIAN: Dr. Haseeb Gil PHYSICIAN BEARING MACHINE OPERATOR: Gabriel Velasco PA-C FINDINGS: After informed [...] 1960 Age: 64 year(s) Corporate ID Number: [id number] Gender Female Ramp Attendant: Giovanna Rock Height: 67 inches [facility] Referring Physician: HUEY HURTADO Weight: [...] 1.35 m/s E/A ratio: 0.97 m/s Volume ncziowqab286.99 LV length: 8.51 cm ml Volume cqxtqyzl45.96 ml LVOT diameter: 1.79 cm Normal sized [...] Valve TR velocity: 2.51 m/s TR gradient: 25.97040 mmHg Estimated RAP: 3 mmHg RVSP: 28.12 [...] renal function - No emergent need of HEAD ATHLETIC TRAINER/STRENGTH COACH - Monitor H/H and transfuse for Hgb [...] Range POC-GLUCOSE 100 70 - 110 mg/dL Raisin Washer [id number] Hemoglobin Status: Abnormal Collection Time: 12/01/24 3:33 PM Result Value Ref Range Hemoglobin 8.0 (L) 11.2 - 15.7 GM/DL Glucose, Nova Meter Status: Abnormal Collection Time: 12/01/24 4:25 PM Result Value Ref Range POC-GLUCOSE 115 (H) 70 - 110 mg/dL Raisin Washer [id number] Glucose, Nova Meter Status: Abnormal Collection Time: 12/01/24 7:34 PM Result Value Ref Range POC-GLUCOSE 128 (H) 70 - 110 mg/dL Raisin Washer [id number] Hemoglobin Status: Abnormal Collection Time: 12/02/24 12:04 [...] POC-GLUCOSE 115 (H) 70 - 110 mg/dL Raisin Washer [id number] Hemoglobin Status: Abnormal Collection Time: 12/02/24 7:40 [...] Ascites ATTENDING PHYSICIAN: Dr. Haseeb Gil PHYSICIAN BEARING MACHINE OPERATOR: Gabriel Velasco PA-C FINDINGS: After informed [...] 1960 Age: 64 year(s) Corporate ID Number: [id number] Gender Female Ramp Attendant: Giovanna Rock Height: 67 inches [facility] Referring Physician: HUEY HURTADO Weight: 225 pounds Interpreting JESSICA RAYMOND MD BMI: 35.24 kg/m^2 Physician: Date of Service: 11/30/2024 Blood Pressure: 118/59 mmHg Room Number: 579 Type of Study: TTE procedure: ECHO COMPLETE (DOPPLER / COLOR) W OR WO CONTRAST. Patient Status: Routine IP Study [facility]: [facility] Quality: Adequate visualization History/Tech Notes: Indication: [...] 1.35 m/s E/A ratio: 0.97 m/s Volume idybkwlyb830.99 LV length: 8.51 cm ml Volume nmjsviux04.96 ml LVOT diameter: 1.79 cm Normal sized [...] Valve TR velocity: 2.51 m/s TR gradient: 25.20249 mmHg Estimated RAP: 3 mmHg RVSP: 28.12 [...] BODY REMOVAL; Surgeon: Scott Daley MD; Location: [facility]; Service: Gastroenterology; Laterality: N/A; Allergies: [...] 0405 K 4.2 12/01/20245 CL 116 (H) 12/01/2024 040 CO2 20 (L) 12/01/2024404 BUN 68.3 (H) 12/01/2024404 CREATININE 4.13 (H) 12/01/2024404 Component Value Date/Time CALCIUM 8.0 (L) 12/01/2024404 ALKPHOS 61 12/01/20245 AST 26 12/01/2024404 ALT 15 12/01/2024 040 BILITOT 0.5 12/01/2024404 Radiology Results (last 7 days) Procedure Component Value Units Date/Time Ultrasound renal limited [[id number]] Collected: 11/30/241645 Order Status: Completed Updated: 11/30/241648 [...] dictated by Ronnell Tom MD Ultrasound liver [[id number]] Collected: 11/30/24 164 Order Status: Completed Updated: [...] and dictated by SABINE Yang. US paracentesis [[id number]] Collected: 11/30/24 1637 Order Status: Completed Updated: 11/30/24 1655 Narrative: ULTRASOUND-GUIDED PARACENTESIS HISTORY: Ascites ATTENDING PHYSICIAN: Dr. Haseeb Gil PHYSICIAN BEARING MACHINE OPERATOR: Gabriel Velasco PA-C FINDINGS: After informed [...] Gabriel Velasco PA-C. XR chest AP portable [[id number]] Collected: 11/30/24 1215 Order Status: Completed Updated: [...] by Marielos Sotelo PA-C. US renal complete [[id number]] Order Status: Canceled Assessment Pancytopenia. White blood [...] Range POC-GLUCOSE 102 70 - 110 mg/dL Raisin Washer [id number] Urinalysis, Reflex Microscopic and Culture If Indicated Status: Abnormal Collection Time: 11/30/24 11:35 AM Result Value Ref Range Color, UA Light Yellow Clarity, UA Turbid (A) Clear Specific [place], UA 1.011 1.005 - 1.030 pH, UA [...] Range POC-GLUCOSE 107 70 - 110 mg/dL Raisin Washer [id number] Glucose, Nova Meter Status: None Collection Time: 11/30/24 7:38 PM Result Value Ref Range POC-GLUCOSE 106 70 - 110 mg/dL Raisin Washer [id number] Magnesium Status: Abnormal Collection Time: 12/01/24 4:05 [...] Osmolality Calc 309.8 mOsm/kg CBC - Hemogram ([facility]) Status: Abnormal Collection Time: 12/01/24 4:06 AM [...] AM Result Value Ref Range Issue Date/Time [id number] Product Identification Red Blood Cells Product Code [id number] Status Information Transfused Unit Number [id number] Blood Type 5100 Cross Match Results Compatible Glucose, Nova Meter Status: None Collection Time: 12/01/24 5:37 AM Result Value Ref Range POC-GLUCOSE 107 70 - 110 mg/dL Raisin Washer [id number] Type and Screen Status: None (Preliminary result) Collection Time: 12/01/24 7:08 AM Result Value Ref Range ABO/Rh O Positive Antibody Screen Negative Glucose, Nova Meter Status: None Collection Time: 12/01/24 8:12 AM Result Value Ref Range POC-GLUCOSE 103 70 - 110 mg/dL Raisin Washer [id number] Ultrasound liver Narrative: CLINICAL INDICATION: Abdominal pain. [...] Ascites ATTENDING PHYSICIAN: Dr. Haseeb Gil PHYSICIAN BEARING MACHINE OPERATOR: Gabriel Velasco PA-C FINDINGS: After informed [...] 1960 Age: 64 year(s) Corporate ID Number: [id number] Gender Female Ramp Attendant: Giovanna Rock Height: 67 inches [facility] Referring Physician: HUEY UHRTADO Weight: 225 pounds Interpreting JESSICA RAYMOND MD [...] 1.35 m/s E/A ratio: 0.97 m/s Volume [id number] LV length: 8.51 cm ml Volume ujiuinhf49.96 ml LVOT diameter: 1.79 cm Normal sized [...] Valve TR velocity: 2.51 m/s TR gradient: 25.42761 mmHg Estimated RAP: 3 mmHg RVSP: 28.12 [...] +++ Pedal edema , no cyanosis DIRECTOR MOBILE: Alert, No focal deficit noted grossly Psy: Cooperative Labs: Results for orders placed or performed during the hospital encounter of 11/30/24 (from the past 24 hours) Glucose, Nova Meter Status: None Collection Time: 11/30/24 10:46 AM Result Value Ref Range POC-GLUCOSE 102 70 - 110 mg/dL Raisin Washer [id number] Urinalysis, Reflex Microscopic and Culture If Indicated Status: Abnormal Collection Time: 11/30/24 11:35 AM Result Value Ref Range Color, UA Light Yellow Clarity, UA Turbid (A) Clear Specific [place], UA 1.011 1.005 - 1.030 pH, UA [...] Range POC-GLUCOSE 107 70 - 110 mg/dL Raisin Washer [id number] Glucose, Nova Meter Status: None Collection Time: 11/30/24 7:38 PM Result Value Ref Range POC-GLUCOSE 106 70 - 110 mg/dL Raisin Washer [id number] Magnesium Status: Abnormal Collection Time: 12/01/24 4:05 [...] Osmolality Calc 309.8 mOsm/kg CBC - Hemogram ([facility]) Status: Abnormal Collection Time: 12/01/24 4:06 AM [...] AM Result Value Ref Range Issue Date/Time [id number] Product Identification Red Blood Cells Product Code [id number] Status Information Transfused Unit Number [id number] Blood Type 5100 Cross Match Results Compatible Glucose, Nova Meter Status: None Collection Time: 12/01/24 5:37 AM Result Value Ref Range POC-GLUCOSE 107 70 - 110 mg/dL Raisin Washer [id number] Type and Screen Status: None (Preliminary result) Collection Time: 12/01/24 7:08 AM Result Value Ref Range ABO/Rh O Positive Antibody Screen Negative Glucose, Nova Meter Status: None Collection Time: 12/01/24 8:12 AM Result Value Ref Range POC-GLUCOSE 103 70 - 110 mg/dL Raisin Washer [id number] Ultrasound liver Narrative: CLINICAL INDICATION: Abdominal pain. [...] Ascites ATTENDING PHYSICIAN: Dr. Haseeb Gil PHYSICIAN BEARING MACHINE OPERATOR: Gabriel Velasco PA-C FINDINGS: After informed [...] 1960 Age: 64 year(s) Corporate ID Number: [id number] Gender Female Ramp Attendant: Giovanna Rock Height: 67 inches [facility] Referring Physician: HUEY HURTADO Weight: [...] .99 LV length: 8.51 cm ml Volume oolrbwvi53.96 ml LVOT diameter: 1.79 cm Normal sized [...] Valve TR velocity: 2.51 m/s TR gradient: 25.61458 mmHg Estimated RAP: 3 mmHg RVSP: 28.12 [...] renal function - No emergent need of HEAD ATHLETIC TRAINER/STRENGTH COACH - Monitor H/H and transfuse for Hgb [...] The patient's fine motor coordination is intact. Cnkvhg-et-nmrw: LUE (3) Minimal Impairment: Able to accomplish [...] in chair, to don socks Outcome Measures [facility] Daily Living Functional Assessment How much [...] (Minimal/Contact guard/Supervision/Setup) 4=None (Modified independent/Independent) The patient's [facility] raw score is 16. The patient currently has 53.32% functional impairment. Clinicians are most likely to recommend inpatient/SNF/terminal clerk care for patients with scores between 6-17, [...] diabetes, CKD, CAD, arthritis. Patient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 [facility] [phone] * (ABNORMAL) Glucose, Nova Meter (12/14/2024 10:29 AM EDT) POC-GLUCOSE 215(H) 70 - 110 mg/dL 12/14/2024 10:[address] [facility] Comment: In the event of poor peripheral blood flow, venous or arterial blood should be used due to the potential of erroneous results. Notified Nurse RBV Raisin Washer [id number] 12/14/2024 10:[address] [facility] Blood WHOLE BLOOD / Unknown 12/14/2024 10:29 AM EDT 12/14/2024 10:[address] [facility] - 12/14/2024 10:30 AM EDT Raisin Washer ID is - [id number] us David Coffman PA-C POINT OF CARE TEST ORDERABLES Final Result Performing Organization Address [facility] Co de Phone Number [facility] [address] [phone] * ECG 12 lead (12/14/2024 9:10 AM EDT) Pathologist [facility] VENTRICULAR RATE EKG/MIN 89 BPM GE MUSE ATRIAL RATE (MCT) 89 BPM GE MUSE ID Interval 146 ms GE MUSE QRS-INTERVAL (MSEC) 86 ms GE MUSE QT Interval 432 ms GE MUSE QTC Interval 525 ms GE MUSE P [place] 34 degrees GE MUSE R AXIS (MCT) -13 degrees GE MUSE T Wave [place] -2 degrees GE MUSE [place] Diagnosis Normal sinus rhythm Septal infarct (cited on or before 14-DEC-2024 ) Confirmed by DEYSI FOSS M.D. ([id number]) on 12/14/2024 5:07:26 PM GE MUSE 12/14/2024 9:10 AM EDT 12/14/2024 5:07 PM EDT Deysi Foss MD ECG ORDERABLES Final Result Performing Organization Address City/[facility]/ZIP Co de Phone Number GE MUSE * (ABNORMAL) Glucose, Nova Meter (12/14/2024 4:24 AM EDT) Pathologist [facility] POC-GLUCOSE 140(H) 70 - 110 mg/dL 12/14/2024 4:[address] [facility] Comment: In the event of poor peripheral blood flow, venous or arterial blood should be used due to the potential of erroneous results. Protocols Followed Raisin Washer [id number] 12/14/2024 4:[address] [facility] Blood WHOLE BLOOD / Unknown 12/14/2024 4:24 AM EDT 12/14/2024 4:[address] [facility] - 12/14/2024 4:26 AM EDT Raisin Washer ID is - [id number] David Coffman PA-C POINT OF CARE TEST ORDERABLES Final Result [facility] [address] [phone] * (ABNORMAL) Comprehensive metabolic panel (12/14/2024 2:54 AM EDT) Sodium 145 136 - 145 meq/L 12/14/2024 4:[address] [facility] Potassium 3.5 3.4 - 5.1 meq/L 12/14/2024 4:[address] [facility] Chloride 109 98 - 112 meq/L 12/14/2024 4:[address] [facility] CO2 27 22 - 29 meq/L 12/14/2024 4:[address] [facility] Calcium 8.6 8.4 - 10.2 mg/dL 12/14/2024 4:[address] [facility] Glucose 146(H) 82 - 115 mg/dL 12/14/2024 4:[address] [facility] BUN 67.7(H) 9.8 - 20.1 mg/dL 12/14/2024 4:[address] [facility] Creatinine 2.22(H) 0.57 - 1.11 mg/dL 12/14/2024 4:[address] [facility] BUN/Creatinine 30(H) 8 - 20 12/14/2024 4:[address] [facility] eGFR (mL/min/1.73m2) 25(L) >=60 mL/min/1. 73m2 12/14/2024 4:[address] [facility] Albumin 3.2(L) 3.5 - 5.0 g/dL 12/14/2024 4:[address] [facility] Alkaline Phosphatase 56 40 - 150 U/L 12/14/2024 4:[address] [facility] ALT 21 <=34 U/L 12/14/2024 4:[address] [facility] Comment: ALT2 reagent used for testing does not contain P5P supplementation and therefore may miss ALT elevations in patients with B6 deficiency. This population may be as high as 10% in the [place], with risk factors including malabsorption, drug interactions, and alcoholic hepatitis. AST 52(H) 11 - 34 U/L 12/14/2024 4:[address] [facility] Comment: AST2 reagent used for testing does not contain P5P supplementation and therefore may miss AST elevations in patients with B6 deficiency. This population may be as high as 10% in the [place], with risk factors including malabsorption, drug interactions, and alcoholic hepatitis. Total Bilirubin 0.9 0.2 - 1.2 mg/dL 12/14/2024 4:[address] [facility] Protein, Total 5.9(L) 6.4 - 8.3 g/dL 12/14/2024 4:[address] [facility] Globulin 2.7 2.5 - 4.1 g/dL 12/14/2024 4:[address] [facility] Anion Gap 13(H) 4 - 12 12/14/2024 4:[address] [facility] A/G Ratio 1.2 0.7 - 1.9 12/14/2024 4:[address] [facility] Osmolality Calc 311.0 mOsm/kg 4:[address] [facility] Blood Venipuncture / Unknown 12/14/2024 2:54 AM EDT 12/14/2024 3:26 AM EDT us David Coffman PA-C LAB BLOOD ORDERABLES Final Re sult [facility] [address] [phone] * (ABNORMAL) CBC with automated diff (12/14/2024 2:54 AM EDT) WBC 1.4(LL) 4.0 - 10.0 K/ L 12/14/2024 3:[address] [facility] RBC 2.45(L) 3.93 - 5.22 M/ L 12/14/2024 3:[address] [facility] Hemoglobin 7.6(L) 11.2 - 15.7 GM/DL 12/14/2024 3:[address] [facility] Hematocrit 24.1(L) 34.1 - 44.9 % 12/14/2024 3:[address] [facility] MCV 98(H) 79 - 95 fL 12/14/2024 3:[address] [facility] MCH 31.0 25.6 - 32.2 pg 12/14/2024 3:[address] [facility] MCHC 31.5(L) 32.2 - 35.5 GM/DL 12/14/2024 3:[address] [facility] RDW 16.3(H) 11.7 - 14.4 % 12/14/2024 3:[address] [facility] Platelets 51(L) 140 - 375 K/CU MM 12/14/2024 3:[address] [facility] MPV 12.3 9.4 - 12.3 fL 12/14/2024 3:[address] [facility] % Neutros 54 34 - 71 % 12/14/2024 3:[address] [facility] % Lymphs 32 19 - 52 % 12/14/2024 3:[address] [facility] % Monos 14(H) 5 - 13 % 12/14/2024 3:[address] [facility] % Eos 0(L) 1 - 6 % 12/14/2024 3:[address] [facility] % Baso 1 0 - 1 % 12/14/2024 3:[address] [facility] NRBC Absolute <0.01 0 - 0.012 K/ul 12/14/2024 3:[address] [facility] # Neutros 0.76(L) 1.56 - 6.13 K/ L 12/14/2024 3:[address] [facility] # Lymphs 0.45(L) 1.18 - 3.74 K/ L 12/14/2024 3:[address] [facility] # Monos 0.19(L) 0.24 - 0.86 K/ L 12/14/2024 3:[address] [facility] # Eos <0.03(L) 0.04 - 0.36 K/ L 12/14/2024 3:[address] [facility] # Baso <0.03 0.01 - 0.08 K/ L 12/14/2024 3:[address] [facility] Immature Granulocytes-Re lative 0.00(L) 0.01 - 0.43 % 12/14/2024 3:[address] [facility] # IG <0.03 0.00 - 0.03 K/uL 12/14/2024 3:[address] [facility] Blood Venipuncture / Unknown 12/14/2024 2:54 AM EDT 12/14/2024 3:[address] [facility] - 12/14/2024 3:45 AM EDT [...] PA-C LAB BLOOD ORDERABLES Final Re sult [facility] [address] [place] [id number] [phone] * (ABNORMAL) Glucose, Nova Meter (12/13/2024 8:20 PM EDT) POC-GLUCOSE 186(H) 70 - 110 mg/dL 12/13/2024 8:[address] [facility] Comment: In the event of poor peripheral blood flow, venous or arterial blood should be used due to the potential of erroneous results. Protocols Followed Raisin Washer [id number] 12/13/2024 8:21 PM EDT [facility] Blood WHOLE BLOOD / Unknown 12/13/2024 8:20 PM EDT 12/13/2024 8:[address] [facility] - 12/13/2024 8:21 PM EDT Raisin Washer ID is - [id number] [facility] Andry Coffman PA-C POINT OF CARE TEST ORDERABLES Final Result [facility] [address] [phone] * (ABNORMAL) Glucose, Nova Meter (12/13/2024 4:24 PM EDT) Pathologist [facility] POC-GLUCOSE 156(H) 70 - 110 mg/dL 12/13/2024 4:[address] [facility] Comment: In the event of poor peripheral blood flow, venous or arterial blood should be used due to the potential of erroneous results. Notified Nurse RBV Raisin Washer [id number] 12/13/2024 4:[address] [facility] Blood WHOLE BLOOD / Unknown 12/13/2024 4:24 PM EDT 12/13/2024 4:[address] [facility] - 12/13/2024 4:25 PM EDT Raisin Washer ID is - [id number] David Andry Coffman PA-C POINT OF CARE TEST ORDERABLES Final Result [facility] [address] [phone] * ECG 12 lead (12/13/2024 1:14 PM EDT) VENTRICULAR RATE EKG/MIN 86 BPM GE MUSE ATRIAL RATE (MCT) 86 BPM GE MUSE ID Interval 144 ms GE MUSE QRS-INTERVAL (MSEC) 86 ms GE MUSE QT Interval 384 ms GE MUSE QTC Interval 459 ms GE MUSE P [place] 46 degrees GE MUSE R AXIS (MCT) -4 degrees GE MUSE T Wave [place] 43 degrees GE MUSE [place] Diagnosis Normal sinus rhythm Poor R wave progression Confirmed by Aleksandr ROBIN STEVE ([id number]) on 12/14/2024 1:01:45 AM GE MUSE 12/13/2024 1:14 PM EDT 12/14/2024 1:01 AM EDT Deysi Foss MD ECG ORDERABLES Final Result Performing Organization Address [facility] de Phone Number GE MUSE * (ABNORMAL) Glucose, Nova Meter (12/13/2024 1:07 PM EDT) POC-GLUCOSE 235(H) 70 - 110 mg/dL 12/15/2024 12:[address] [facility] Comment:In the event of poor peripheral blood flow, venous or arterial blood should be used due to the potential of erroneous results. Raisin Washer [id number] 12/15/2024 12:[address] [facility] Blood WHOLE BLOOD / Unknown 12/13/2024 1:07 PM EDT 12/15/2024 12:[address] [facility] - 12/15/2024 12:32 AM EDT Raisin Washer ID is - [id number] us David Coffman PA-C POINT OF CARE TEST ORDERABLES Final Result Performing Organization Address [facility] Co de Phone Number [facility] [address] [phone] * (ABNORMAL) Glucose, Nova Meter (12/13/2024 11:15 AM EDT) POC-GLUCOSE 221(H) 70 - 110 mg/dL 12/13/2024 11:[address] [facility] Comment:In the event of poor peripheral blood flow, venous or arterial blood should be used due to the potential of erroneous results. Raisin Washer [id number] 12/13/2024 11:[address] [facility] Blood WHOLE BLOOD / Unknown 12/13/2024 11:15 AM EDT 12/13/2024 11:17 AM EDT [facility] - 12/13/2024 11:17 AM EDT Raisin Washer ID is - [id number] [facility] Andry Meghna PA-C POINT OF CARE TEST ORDERABLES Final Result Performing Organization Address [facility] de Phone Number [facility] [address] [phone] * (ABNORMAL) Glucose, Nova Meter (12/13/2024 5:46 AM EDT) Pathologist [facility] POC-GLUCOSE 127(H) 70 - 110 mg/dL 12/13/2024 5:[address] [facility] Comment: In the event of poor peripheral blood flow, venous or arterial blood should be used due to the potential of erroneous results. Protocols Followed Notified Nurse RBV Raisin Washer [id number] 12/13/2024 5:[address] [facility] Blood WHOLE BLOOD / Unknown 12/13/2024 5:46 AM EDT 12/13/2024 5:48 AM EDT [facility] - 12/13/2024 5:48 AM EDT Raisin Washer ID is - [id number] Result [facility] Andry VALDIVIA-C POINT OF CARE TEST ORDERABLES Final Result Performing Organization Address City/[facility] Co de Phone Number [facility] [address] [phone] * (ABNORMAL) CBC Scan (12/13/2024 3:15 AM EDT) Pathologist [facility] Platelet Estimate Decreased (A) Adequate 12/13/2024 4:[address] [facility] RBC Morphology abnormal( A) Normal 12/13/2024 4:[address] [facility] Anisocytosis 1+ 12/13/2024 4:[address] [facility] Hypochromia 1+ 12/13/2024 4:[address] [facility] Ovalocytes 1+ 12/13/2024 4:[address] [facility] Blood Venipuncture / Unknown 12/13/2024 3:15 AM EDT 12/13/2024 3:27 AM EDT Venkatesh Stephen MD LAB BLOOD ORDERABLES Final Resul t [facility] [address] [phone] * (ABNORMAL) Hepatic function panel (12/13/2024 3:15 AM EDT) Protein, Total 5.7(L) 6.4 - 8.3 g/dL 12/13/2024 4:[address] [facility] Albumin 3.1(L) 3.5 - 5.0 g/dL 12/13/2024 4:[address] [facility] Total Bilirubin 0.8 0.2 - 1.2 mg/dL 12/13/2024 4:[address] [facility] Bilirubin, Direct 0.4 0.0 - 0.5 mg/dL 12/13/2024 4:[address] [facility] Alkaline Phosphatase 53 40 - 150 U/L 12/13/2024 4:[address] [facility] Globulin 2.6 2.5 - 4.1 g/dL 12/13/2024 4:[address] [facility] A/G Ratio 1.2 0.7 - 1.9 12/13/2024 4:[address] [facility] AST 42(H) 11 - 34 U/L 12/13/2024 4:[address] [facility] Comment: AST2 reagent used for testing does not contain P5P supplementation and therefore may miss AST elevations in patients with B6 deficiency. This population may be as high as 10% in the [place], with risk factors including malabsorption, drug interactions, and alcoholic hepatitis. ALT 16 <=34 U/L 12/13/2024 4:[address] [facility] Comment: ALT2 reagent used for [...] MD LAB BLOOD ORDERABLES Final Resu lt [facility] [address] [phone] * (ABNORMAL) CBC with automated diff (12/13/2024 3:15 AM EDT) WBC 1.4(LL) 4.0 - 10.0 K/ L 12/13/2024 3:[address] [facility] RBC 2.42(L) 3.93 - 5.22 M/ L 12/13/2024 3:[address] [facility] Hemoglobin 7.4(L) 11.2 - 15.7 GM/DL 12/13/2024 3:[address] [facility] Hematocrit 23.4(L) 34.1 - 44.9 % 12/13/2024 3:[address] [facility] MCV 97(H) 79 - 95 fL 12/13/2024 3:[address] [facility] MCH 30.6 25.6 - 32.2 pg 12/13/2024 3:[address] [facility] MCHC 31.6(L) 32.2 - 35.5 GM/DL 12/13/2024 3:[address] [facility] RDW 16.4(H) 11.7 - 14.4 % 12/13/2024 3:[address] [facility] Platelets 52(L) 140 - 375 K/CU MM 12/13/2024 3:[address] [facility] MPV 12.1 9.4 - 12.3 fL 12/13/2024 3:[address] [facility] % Neutros 56 34 - 71 % 12/13/2024 3:[address] [facility] % Lymphs 28 19 - 52 % 12/13/2024 3:[address] [facility] % Monos 15(H) 5 - 13 % 12/13/2024 3:[address] [facility] % Eos 0(L) 1 - 6 % 12/13/2024 3:[address] [facility] % Baso 1 0 - 1 % 12/13/2024 3:[address] [facility] NRBC Absolute <0.01 0 - 0.012 K/ul 12/13/2024 3:[address] [facility] # Neutros 0.80(L) 1.56 - 6.13 K/ L 12/13/2024 3:[address] [facility] # Lymphs 0.40(L) 1.18 - 3.74 K/ L 12/13/2024 3:[address] [facility] # Monos 0.21(L) 0.24 - 0.86 K/ L 12/13/2024 3:[address] [facility] # Eos <0.03(L) 0.04 - 0.36 K/ L 12/13/2024 3:[address] [facility] # Baso <0.03 0.01 - 0.08 K/ L 12/13/2024 3:[address] [facility] Immature Granulocytes-Re lative 0.00(L) 0.01 - 0.43 % 12/13/2024 3:[address] [facility] # IG <0.03 0.00 - 0.03 K/uL 12/13/2024 3:[address] [facility] Blood Venipuncture / Unknown 12/13/2024 3:15 AM EDT 12/13/2024 3:27 AM EDT [facility] - 12/13/2024 3:40 AM EDT [...] MD LAB BLOOD ORDERABLES Final Resul t [facility] [address] [phone] * (ABNORMAL) Basic Metabolic Panel (12/13/2024 3:15 AM EDT) Sodium 147(H) 136 - 145 meq/L 12/13/2024 4:[address] [facility] Potassium 3.5 3.4 - 5.1 meq/L 12/13/2024 4:[address] [facility] CO2 27 22 - 29 meq/L 12/13/2024 4:[address] [facility] Chloride 110 98 - 112 meq/L 12/13/2024 4:[address] [facility] Glucose 135(H) 82 - 115 mg/dL 12/13/2024 4:[address] [facility] BUN 71.9(H) 9.8 - 20.1 mg/dL 12/13/2024 4:[address] [facility] Creatinine 2.29(H) 0.57 - 1.11 mg/dL 12/13/2024 4:[address] [facility] BUN/Creatinine 31(H) 8 - 20 12/13/2024 4:[address] [facility] Calcium 8.5 8.4 - 10.2 mg/dL 12/13/2024 4:[address] [facility] Anion Gap 14(H) 4 - 12 12/13/2024 4:[address] [facility] eGFR (mL/min/1.73m2) 24(L) >=60 mL/min/1.7 3m2 12/13/2024 4:[address] [facility] Osmolality Calc 315.6 mOsm/kg 4:[address] [facility] Blood Venipuncture / Unknown 12/13/2024 3:15 AM EDT 12/13/2024 3:39 AM EDT Venkatesh Stephen MD LAB BLOOD ORDERABLES Final Resul t Performing Organization Address [facility] Co de Phone Number [facility] [address] [phone] * (ABNORMAL) Glucose, Nova Meter (12/12/2024 8:01 PM EDT) POC-GLUCOSE 182(H) 70 - 110 mg/dL 12/12/2024 8:[address] [facility] Comment: In the event of poor peripheral blood flow, venous or arterial blood should be used due to the potential of erroneous results. Protocols Followed Notified Nurse RBV Raisin Washer [phone] 12/12/2024 8:[address] [facility] Blood WHOLE BLOOD / Unknown 12/12/2024 8:01 PM EDT 12/12/2024 8:[address] [facility] - 12/12/2024 8:02 PM EDT Raisin Washer ID is - [id number] us David Coffman PA-C POINT OF CARE TEST ORDERABLES Final Result Performing Organization Address [facility] [place] Phone Number [facility] [address] [place] [address], [facility] [phone] * (ABNORMAL) Glucose, Nova Meter (12/12/2024 3:51 PM EDT) POC-GLUCOSE 163(H) 70 - 110 mg/dL 12/12/2024 3:[address] [facility] Comment: In the event of poor peripheral blood flow, venous or arterial blood should be used due to the potential of erroneous results. Notified Nurse RBV Raisin Washer [phone] 12/12/2024 3:[address] [facility] Blood WHOLE BLOOD / Unknown 12/12/2024 3:51 PM EDT 12/12/2024 3:[address] [facility] - 12/12/2024 3:52 PM EDT Raisin Washer ID is - [phone] David Coffman PA-C POINT OF CARE TEST ORDERABLES Final Result Performing Organization Address [facility] de Phone Number [facility] [address] [place] [address], [facility] [phone] * (ABNORMAL) Glucose, Nova Meter (12/12/2024 10:31 AM EDT) [facility] POC-GLUCOSE 221(H) 70 - 110 mg/dL 12/12/2024 10:[address] [facility] Comment: In the event of poor peripheral blood flow, venous or arterial blood should be used due to the potential of erroneous results. Notified Nurse RBV Raisin Washer [phone] 12/12/2024 10:[address] [facility] Blood WHOLE BLOOD / Unknown 12/12/2024 10:31 AM EDT 12/12/2024 10:[address] [facility] - 12/12/2024 10:32 AM EDT Raisin Washer ID is - [id number] David Coffman PA-C POINT OF CARE TEST ORDERABLES Final Result Performing Organization Address [facility] Phone Number [facility] [address] [phone] * ECG 12 lead (12/12/2024 9:22 AM EDT) [facility] VENTRICULAR RATE EKG/MIN 87 BPM GE MUSE ATRIAL RATE (MCT) 87 BPM GE MUSE ID Interval 140 ms GE MUSE QRS-INTERVAL (MSEC) 90 ms GE MUSE QT Interval 414 ms GE MUSE QTC Interval 498 ms GE MUSE P [place] 26 degrees GE MUSE R AXIS (MCT) -17 degrees GE MUSE T Wave [place] 24 degrees GE MUSE [place] Diagnosis Normal sinus rhythm Leftward axis When compared with ECG of 11-DEC-2024 10:29, No significant change was found Confirmed by Aleksandr ROBIN STEVE ([id number]) on 12/12/2024 11:05:42 PM GE MUSE 12/12/2024 9:22 AM EDT 12/12/2024 11:05 PM EDT Deysi Foss MD ECG ORDERABLES Final Result Performing Organization Address [facility] Co de Phone Number GE MUSE * (ABNORMAL) Glucose, Nova Meter (12/12/2024 5:43 AM EDT) POC-GLUCOSE 149(H) 70 - 110 mg/dL 12/12/2024 5:[address] [facility] Comment: In the event of poor peripheral blood flow, venous or arterial blood should be used due to the potential of erroneous results. Notified Nurse RBV Raisin Washer [phone] 12/12/2024 5:[address] [facility] Blood WHOLE BLOOD / Unknown 12/12/2024 5:43 AM EDT 12/12/2024 5:[address] [facility] - 12/12/2024 5:44 AM EDT Raisin Washer ID is - [id number] us David Coffman PA-C POINT OF CARE TEST ORDERABLES Final Result Performing Organization Address [facility]/ZIP Co de Phone Number [facility] [address] [phone] * (ABNORMAL) CBC Scan (12/12/2024 3:47 AM EDT) Platelet Estimate Decreased (A) Adequate 12/12/2024 6:[address] [facility] RBC Morphology abnormal( A) Normal 12/12/2024 6:[address] [facility] Anisocytosis 1+ 12/12/2024 6:[address] [facility] Hypochromia 1+ 12/12/2024 6:[address] [facility] Macrocytes 1+ 12/12/2024 6:[address] [facility] Ovalocytes 1+ 12/12/2024 6:[address] [facility] Poikilocytes 1+ 12/12/2024 6:[address] [facility] Blood Venipuncture / Unknown 12/12/2024 3:47 AM EDT 12/12/2024 4:40 AM EDT us Venkatesh Stephen MD LAB BLOOD ORDERABLES Final Resul t [facility] [address] [phone] * (ABNORMAL) CBC with automated diff (12/12/2024 3:47 AM EDT) WBC 1.4(LL) 4.0 - 10.0 K/ L 12/12/2024 6:[address] [facility] RBC 2.39(L) 3.93 - 5.22 M/ L 12/12/2024 6:[address] [facility] Hemoglobin 7.3(L) 11.2 - 15.7 GM/DL 12/12/2024 6:[address] [facility] Hematocrit 23.2(L) 34.1 - 44.9 % 12/12/2024 6:[address] [facility] MCV 97(H) 79 - 95 fL 12/12/2024 6:[address] [facility] MCH 30.5 25.6 - 32.2 pg 12/12/2024 6:[address] [facility] MCHC 31.5(L) 32.2 - 35.5 GM/DL 12/12/2024 6:[address] [facility] RDW 16.7(H) 11.7 - 14.4 % 12/12/2024 6:[address] [facility] Platelets 43(L) 140 - 375 K/CU MM 12/12/2024 6:[address] [facility] MPV 11.8 9.4 - 12.3 fL 12/12/2024 6:[address] [facility] % Neutros 57 34 - 71 % 12/12/2024 6:[address] [facility] % Lymphs 29 19 - 52 % 12/12/2024 6:[address] [facility] % Monos 13 5 - 13 % 12/12/2024 6:[address] [facility] % Eos 1 1 - 6 % 12/12/2024 6:[address] [facility] % Baso 0 0 - 1 % 12/12/2024 6:[address] [facility] NRBC Absolute <0.01 0 - 0.012 K/ul 12/12/2024 6:[address] [facility] # Neutros 0.80(L) 1.56 - 6.13 K/ L 12/12/2024 6:[address] [facility] # Lymphs 0.41(L) 1.18 - 3.74 K/ L 12/12/2024 6:[address] [facility] # Monos 0.18(L) 0.24 - 0.86 K/ L 12/12/2024 6:[address] [facility] # Eos <0.03(L) 0.04 - 0.36 K/ L 12/12/2024 6:[address] [facility] # Baso <0.03 0.01 - 0.08 K/ L 12/12/2024 6:[address] [facility] Immature Granulocytes-Re lative 0.70(H) 0.01 - 0.43 % 12/12/2024 6:[address] [facility] # IG <0.03 0.00 - 0.03 K/uL 12/12/2024 6:[address] [facility] Blood Venipuncture / Unknown 12/12/2024 3:47 AM EDT 12/12/2024 4:[address] [facility] - 12/12/2024 6:07 AM EDT [...] MD LAB BLOOD ORDERABLES Final Resul t [facility] [address] [phone] * (ABNORMAL) Basic Metabolic Panel (12/12/2024 3:47 AM EDT) Sodium 144 136 - 145 meq/L 12/12/2024 5:[address] [facility] Potassium 3.4 3.4 - 5.1 meq/L 12/12/2024 5:[address] [facility] CO2 26 22 - 29 meq/L 12/12/2024 5:[address] [facility] Chloride 110 98 - 112 meq/L 12/12/2024 5:[address] [facility] Glucose 140(H) 82 - 115 mg/dL 12/12/2024 5:[address] [facility] BUN 70.7(H) 9.8 - 20.1 mg/dL 12/12/2024 5:[address] [facility] Creatinine 2.28(H) 0.57 - 1.11 mg/dL 12/12/2024 5:[address] [facility] BUN/Creatinine 31(H) 8 - 20 12/12/2024 5:[address] [facility] Calcium 8.3(L) 8.4 - 10.2 mg/dL 12/12/2024 5:[address] [facility] Anion Gap 11 4 - 12 12/12/2024 5:[address] [facility] eGFR (mL/min/1.73m2) 24(L) >=60 mL/min/1.7 3m2 12/12/2024 5:[address] [facility] Osmolality Calc 309.9 mOsm/kg 5:[address] [facility] Blood Venipuncture / Unknown 12/12/2024 3:47 AM EDT 12/12/2024 4:41 AM EDT us Venkatesh Stephen MD LAB BLOOD ORDERABLES Final Resul t [facility] [address] [phone] * (ABNORMAL) Glucose, Nova Meter (12/11/2024 7:32 PM EDT) POC-GLUCOSE 159(H) 70 - 110 mg/dL 12/11/2024 7:[address] [facility] Comment: In the event of poor peripheral blood flow, venous or arterial blood should be used due to the potential of erroneous results. Notified Nurse RBV Raisin Washer [phone] 12/11/2024 7:[address] [facility] Blood WHOLE BLOOD / Unknown 12/11/2024 7:32 PM EDT 12/11/2024 7:33 PM EDT [facility] - 12/11/2024 7:33 PM EDT Raisin Washer ID is - [phone] David VALDIVIA-C POINT OF CARE TEST ORDERABLES Final Result Performing Organization Address City/[facility] Co de Phone Number [facility] [address] [place] [address], [facility] [phone] * (ABNORMAL) Glucose, Nova Meter (12/11/2024 4:18 PM EDT) POC-GLUCOSE 156(H) 70 - 110 mg/dL 12/11/2024 4:[address] [facility] Comment: In the event of poor peripheral blood flow, venous or arterial blood should be used due to the potential of erroneous results. Notified Nurse RBV Raisin Washer [phone] 12/11/2024 4:[address] [facility] Blood WHOLE BLOOD / Unknown 12/11/2024 4:18 PM EDT 12/11/2024 4:19 PM EDT [facility] - 12/11/2024 4:19 PM EDT Raisin Washer ID is - [phone] [facility] A Earlimart PA-C POINT OF CARE TEST ORDERABLES Final Result Performing Organization Address [facility] Co de Phone Number [facility] [address] [phone] * (ABNORMAL) Glucose, Nova Meter (12/11/2024 10:43 AM EDT) [facility] POC-GLUCOSE 254(H) 70 - 110 mg/dL 12/11/2024 10:[address] [facility] Comment: In the event of poor peripheral blood flow, venous or arterial blood should be used due to the potential of erroneous results. Notified Nurse RBV Raisin Washer [phone] 12/11/2024 10:[address] [facility] Blood WHOLE BLOOD / Unknown 12/11/2024 10:43 AM EDT 12/11/2024 10:[address] [facility] - 12/11/2024 10:45 AM EDT Raisin Washer ID is - [id number] [facility] Meghna LEI POINT OF CARE TEST ORDERABLES Final Result Performing Organization Address [facility] Co de Phone Number [facility] [address] [phone] * ECG 12 lead (12/11/2024 10:29 AM EDT) [facility] VENTRICULAR RATE EKG/MIN 85 BPM GE MUSE ATRIAL RATE (MCT) 85 BPM GE MUSE ID Interval 142 ms GE MUSE QRS-INTERVAL (MSEC) 92 ms GE MUSE QT Interval 400 ms GE MUSE QTC Interval 476 ms GE MUSE P [place] 34 degrees GE MUSE R AXIS (MCT) -10 degrees GE MUSE T Wave [place] 57 degrees GE MUSE [place] Diagnosis Normal sinus rhythm Minimal voltage criteria [...] - 110 mg/dL 12/11/2024 5:[address] [facility] Comment: In the event of poor peripheral blood flow, venous or arterial blood should be used due to the potential of erroneous results. Notified Nurse RBV Raisin Washer [phone] 12/11/2024 5:[address] [facility] Blood WHOLE BLOOD / Unknown 12/11/2024 5:15 AM EDT 12/11/2024 5:[address] [facility] - 12/11/2024 5:16 AM EDT Raisin Washer ID is - [id number] us Venkatesh Stephen MD POINT OF CARE TEST ORDERABLES Fi nal Result Performing Organization Address [facility]/ZIP Co de Phone Number [facility] [address] [phone] * (ABNORMAL) Basic Metabolic Panel (12/11/2024 3:39 AM EDT) Sodium 146(H) 136 - 145 meq/L 12/11/2024 4:[address] [facility] Potassium 3.7 3.4 - 5.1 meq/L 12/11/2024 4:[address] [facility] CO2 26 22 - 29 meq/L 12/11/2024 4:[address] [facility] Chloride 114(H) 98 - 112 meq/L 12/11/2024 4:[address] [facility] Glucose 154(H) 82 - 115 mg/dL 12/11/2024 4:[address] [facility] BUN 74.9(H) 9.8 - 20.1 mg/dL 12/11/2024 4:[address] [facility] Creatinine 2.61(H) 0.57 - 1.11 mg/dL 12/11/2024 4:[address] [facility] BUN/Creatinine 29(H) 8 - 20 12/11/2024 4:[address] [facility] Calcium 8.2(L) 8.4 - 10.2 mg/dL 12/11/2024 4:[address] [facility] Anion Gap 10 4 - 12 12/11/2024 4:[address] [facility] eGFR (mL/min/1.73m2) 20(L) >=60 mL/min/1.7 3m2 12/11/2024 4:[address] [facility] Osmolality Calc 315.9 mOsm/kg 4:[address] [facility] Blood Venipuncture / Unknown 12/11/2024 3:39 AM EDT 12/11/2024 3:59 AM EDT us Venkatesh Stephen MD LAB BLOOD ORDERABLES Final Resul t [facility] [address] [place] [address] * (ABNORMAL) CBC with automated diff (12/11/2024 3:36 AM EDT) WBC 1.7(LL) 4.0 - 10.0 K/ L 12/11/2024 4:[address] [facility] RBC 2.50(L) 3.93 - 5.22 M/ L 12/11/2024 4:[address] [facility] Hemoglobin 7.7(L) 11.2 - 15.7 GM/DL 12/11/2024 4:[address] [facility] Hematocrit 24.4(L) 34.1 - 44.9 % 12/11/2024 4:[address] [facility] MCV 98(H) 79 - 95 fL 12/11/2024 4:[address] [facility] MCH 30.8 25.6 - 32.2 pg 12/11/2024 4:[address] [facility] MCHC 31.6(L) 32.2 - 35.5 GM/DL 12/11/2024 4:[address] [facility] RDW 16.9(H) 11.7 - 14.4 % 12/11/2024 4:[address] [facility] Platelets 50(L) 140 - 375 K/CU MM 12/11/2024 4:[address] [facility] MPV 11.7 9.4 - 12.3 fL 12/11/2024 4:[address] [facility] % Neutros 58 34 - 71 % 12/11/2024 4:[address] [facility] % Lymphs 27 19 - 52 % 12/11/2024 4:[address] [facility] % Monos 15(H) 5 - 13 % 12/11/2024 4:[address] [facility] % Eos 0(L) 1 - 6 % 12/11/2024 4:[address] [facility] % Baso 1 0 - 1 % 12/11/2024 4:[address] [facility] NRBC Absolute <0.01 0 - 0.012 K/ul 12/11/2024 4:[address] [facility] # Neutros 1.00(L) 1.56 - 6.13 K/ L 12/11/2024 4:[address] [facility] # Lymphs 0.46(L) 1.18 - 3.74 K/ L 12/11/2024 4:[address] [facility] # Monos 0.26 0.24 - 0.86 K/ L 12/11/2024 4:[address] [facility] # Eos <0.03(L) 0.04 - 0.36 K/ L 12/11/2024 4:[address] [facility] # Baso <0.03 0.01 - 0.08 K/ L 12/11/2024 4:[address] [facility] Immature Granulocytes-Re lative 0.00(L) 0.01 - 0.43 % 12/11/2024 4:[address] [facility] # IG <0.03 0.00 - 0.03 K/uL 12/11/2024 4:[address] [facility] Blood Venipuncture / Unknown 12/11/2024 3:36 AM EDT 12/11/2024 3:59 AM EDT [facility] - 12/11/2024 4:19 AM EDT When [...] ORDERABLES Final Resul t Performing Organization Address [facility] [place] Phone Number [facility] [address] [phone] * (ABNORMAL) Glucose, Nova Meter (12/10/2024 7:38 PM EDT) POC-GLUCOSE 201(H) 70 - 110 mg/dL 12/10/2024 7:[address] [facility] Comment: In the event of poor peripheral blood flow, venous or arterial blood should be used due to the potential of erroneous results. Notified Nurse RBV Raisin Washer [phone] 12/10/2024 7:[address] [facility] Blood WHOLE BLOOD / Unknown 12/10/2024 7:38 PM EDT 12/10/2024 7:39 PM EDT [facility] - 12/10/2024 7:39 PM EDT Raisin Washer ID is - [id number] Venkatesh Stephen MD POINT OF CARE TEST ORDERABLES Fi nal Result Performing Organization Address [facility] Co de Phone Number [facility] [address] [phone] * (ABNORMAL) Glucose, Nova Meter (12/10/2024 6:32 PM EDT) POC-GLUCOSE 235(H) 70 - 110 mg/dL 12/10/2024 6:[address] [facility] Comment: In the event of poor peripheral blood flow, venous or arterial blood should be used due to the potential of erroneous results. Notified Nurse RBV Raisin Washer [phone] 12/10/2024 6:[address] [facility] Blood WHOLE BLOOD / Unknown 12/10/2024 6:32 PM EDT 12/10/2024 6:[address] [facility] - 12/10/2024 6:34 PM EDT Raisin Washer ID is - [id number] Venkatesh Stephen MD POINT OF CARE TEST ORDERABLES Fi nal Result Performing Organization Address [facility] Co de Phone Number [facility] [address] [phone] * (ABNORMAL) Glucose, Nova Meter (12/10/2024 4:56 PM EDT) POC-GLUCOSE 195(H) 70 - 110 mg/dL 12/10/2024 4:[address] [facility] Comment: In the event of poor peripheral blood flow, venous or arterial blood should be used due to the potential of erroneous results. Notified Nurse RBV Raisin Washer [phone] 12/10/2024 4:[address] [facility] Blood WHOLE BLOOD / Unknown 12/10/2024 4:56 PM EDT 12/10/2024 4:[address] [facility] - 12/10/2024 4:58 PM EDT Raisin Washer ID is - [phone] Venkatesh Stephen MD POINT OF CARE TEST ORDERABLES Fi nal Result Performing Organization Address [facility]/ZIP Co de Phone Number [facility] [address] [phone] * US paracentesis (12/10/2024 11:37 AM EDT) [...] Ascites. ATTENDING PHYSICIAN: Dr. Haseeb Gil PHYSICIAN BEARING MACHINE OPERATOR: Sujit Blackman PA-C FINDINGS: After informed [...] Ascites. ATTENDING PHYSICIAN: Dr. Haseeb Gil PHYSICIAN BEARING MACHINE OPERATOR: Sujit Blackman PA-C FINDINGS: After informed [...] ECG 12 lead (12/10/2024 10:07 AM EDT) [facility] VENTRICULAR RATE EKG/MIN 90 BPM GE MUSE ATRIAL RATE (MCT) 90 BPM GE MUSE ID Interval 138 ms GE MUSE QRS-INTERVAL (MSEC) 90 ms GE MUSE QT Interval 396 ms GE MUSE QTC Interval 484 ms GE MUSE P [place] 31 degrees GE MUSE R AXIS (MCT) -10 degrees GE MUSE T Wave [place] 37 degrees GE MUSE [place] Diagnosis Normal sinus rhythm Leftward axis Abnormal ECG When compared with ECG of 09-DEC-2024 12:33, No significant change was found Confirmed by Aleksandr ROBIN STEVE ([id number]) on 12/12/2024 1:22:56 AM GE MUSE 12/10/2024 10:0 7 AM EDT 12/12/2024 1:22 AM EDT Deysi Foss MD ECG ORDERABLES Final Result Performing Organization Address [facility]/ZIP Co de Phone Number GE MUSE * Magnesium (12/10/2024 9:53 AM EDT) [facility] Magnesium 2.3 1.6 - 2.6 mg/dL 12/10/2024 11:[address] [facility] Blood Venipuncture / Unknown 12/10/2024 9:53 AM EDT 12/10/2024 10:39 AM EDT Deysi Foss MD LAB BLOOD ORDERABLES Final Resul t [facility] [address] [place] [address] * ALT (SGPT) (12/10/2024 9:53 AM EDT) [facility] ALT 12 <=34 U/L 12/10/2024 11:[address] [facility] Comment: ALT2 reagent used for [...] ORDERABLES Final Resul t Performing Organization Address [facility] Co de Phone Number [facility] [address] [phone] * (ABNORMAL) AST (SGOT) (12/10/2024 9:53 AM EDT) AST 39(H) 11 - 34 U/L 12/10/2024 11:[address] [facility] Comment: AST2 reagent used for testing does not contain P5P supplementation and therefore may miss AST elevations in patients with B6 deficiency. This population may be as high as 10% in the [place], with risk factors including malabsorption, drug interactions, and alcoholic hepatitis. [employer] has become aware of sulfasalazine and sulfapyridine [...] MD LAB BLOOD ORDERABLES Final Resul t [facility] [address] [phone] * XR chest AP portable (12/10/2024 9:10 [...] 7.35 - 7.45 12/10/2024 6:[address] [facility] pCO2, Arterial 49(H) 35 - 45 mm Hg 12/10/2024 6:[address] [facility] pO2, Arterial 119(H) 80 - 100 mm Hg 12/10/2024 6:[address] [facility] HCO3, Arterial 24 20 - 26 mmol/L 12/10/2024 6:[address] [facility] Base Excess, Arterial -2.4(L) -2.0 - 2.0 mmol/L 12/10/2024 6:[address] [facility] O2 Sat, Arterial >99.2 95.0 - 100.0 % 12/10/2024 6:[address] [facility] Comment:notified at read-anny k verification CTO2 ARTERIAL 11.9 mmol/L 12/10/2024 6:[address] [facility] THB ARTERIAL 8.5(L) 12.0 - 18.0 g/dL 12/10/2024 6:[address] [facility] COLLECTION SITE Left Radial 12/10/2024 6:[address] [facility] Arterial Puncture Yes 12/10/2024 6:[address] [facility] Blood Gas O2 Delivery Device Cannula 12/10/2024 6:[address] [facility] Oxygen Flow Rate 4 12/11/19 6:[address] [facility] Blood Gas PT Temperature C 37.0 12/10/2024 6:[address] [facility] Sen's Test Acceptable 12/10/2024 6:[address] [facility] ABG Number of Draw Attempts 1 12/10/2024 6:[address] [facility] FIO2 12/10/2024 6:[address] [facility] Blood Gas Temperature Corrected Results No No 12/10/2024 6:[address] [facility] Blood, Arterial Collection / Unknown 12/10/2024 6:42 AM EDT 12/10/2024 6:51 AM EDT us Blanka Malagon MD LAB BLOOD ORDERABLES Final Re sult [facility] [address] [phone] * (ABNORMAL) Glucose, Nova Meter (12/10/2024 5:52 AM EDT) POC-GLUCOSE 162(H) 70 - 110 mg/dL 12/10/2024 5:[address] [facility] Comment: In the event of poor peripheral blood flow, venous or arterial blood should be used due to the potential of erroneous results. Notified Nurse RBV Raisin Washer [id number] 12/10/2024 5:[address] [facility] Blood WHOLE BLOOD / Unknown 12/10/2024 5:52 AM EDT 12/10/2024 5:[address] [facility] - 12/10/2024 5:53 AM EDT Raisin Washer ID is - [id number] Mary Carmen Mcfadden MD POINT OF CARE TEST ORDERABLES F inal Result [facility] [address] [place] [address], [facility] [phone] * (ABNORMAL) Glucose, Nova Meter (12/09/2024 7:30 PM EDT) POC-GLUCOSE 158(H) 70 - 110 mg/dL 12/09/2024 7:[address] [facility] Comment: In the event of poor peripheral blood flow, venous or arterial blood should be used due to the potential of erroneous results. Notified Nurse RBV Raisin Washer [phone] 12/09/2024 7:[address] [facility] Blood WHOLE BLOOD / Unknown 12/09/2024 7:30 PM EDT 12/09/2024 7:[address] [facility] - 12/09/2024 7:31 PM EDT Raisin Washer ID is - [id number] us Mary Carmen Mcfadden MD POINT OF CARE TEST ORDERABLES F inal Result [facility] [address] [place] [address], [facility] [phone] * (ABNORMAL) Glucose, Nova Meter (12/09/2024 4:23 PM EDT) POC-GLUCOSE 173(H) 70 - 110 mg/dL 12/09/2024 4:[address] [facility] Comment: In the event of poor peripheral blood flow, venous or arterial blood should be used due to the potential of erroneous results. Notified Nurse RBV Raisin Washer [id number] 12/09/2024 4:[address] [facility] Blood WHOLE BLOOD / Unknown 12/09/2024 4:23 PM EDT 12/09/2024 4:[address] [facility] - 12/09/2024 4:24 PM EDT Raisin Washer ID is - [id number] us Mary Carmen Mcfadden MD POINT OF CARE TEST ORDERABLES F inal Result Performing Organization Address [facility]/ZIP Co de Phone Number [facility] [address] [phone] * ECG 12 lead (12/09/2024 12:33 PM EDT) VENTRICULAR RATE EKG/MIN 91 BPM GE MUSE ATRIAL RATE (MCT) 91 BPM GE MUSE ID Interval 140 ms GE MUSE QRS-INTERVAL (MSEC) 88 ms GE MUSE QT Interval 386 ms GE MUSE QTC Interval 474 ms GE MUSE P [place] 44 degrees GE MUSE R AXIS (MCT) -3 degrees GE MUSE T Wave [place] 16 degrees GE MUSE [place] Diagnosis Normal sinus rhythm Minimal voltage criteria for LVH, may be normal variant Septal infarct (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 ([id number]) on 12/09/2024 6:05:19 PM GE MUSE 12/09/2024 12:3 3 PM EDT 12/09/2024 6:05 PM EDT us Deysi Foss MD ECG ORDERABLES Final Result Performing Organization Address [facility] Co de Phone Number [employer] * (ABNORMAL) Glucose, Nova Meter (12/09/2024 11:17 AM EDT) POC-GLUCOSE 173(H) 70 - 110 mg/dL 12/09/2024 11:[address] [facility] Comment: In the event of poor peripheral blood flow, venous or arterial blood should be used due to the potential of erroneous results. Notified Nurse RBV Raisin Washer [phone] 12/09/2024 11:[address] [facility] Blood WHOLE BLOOD / Unknown 12/09/2024 11:17 AM EDT 12/09/2024 11:[address] [facility] - 12/09/2024 11:18 AM EDT Raisin Washer ID is - [phone] us Mary Carmen Mcfadden MD POINT OF CARE TEST ORDERABLES F inal Result [facility] [address] [phone] * XR chest AP portable (12/09/2024 7:09 [...] 7.35 - 7.45 12/09/2024 6:[address] [facility] pCO2, Arterial 51(H) 35 - 45 mm Hg 12/09/2024 6:[address] [facility] pO2, Arterial 157(H) 80 - 100 mm Hg 12/09/2024 6:[address] [facility] HCO3, Arterial 24 20 - 26 mmol/L 12/09/2024 6:[address] [facility] Base Excess, Arterial -2.6(L) -2.0 - 2.0 mmol/L 12/09/2024 6:[address] [facility] O2 Sat, Arterial >99.2 95.0 - 100.0 % 12/09/2024 6:[address] [facility] Comment:[id number] notified PAULINO COFFMAN RN at 12/09/2024 06:51 read-back verification CTO2 ARTERIAL 12.3 mmol/L 12/09/2024 6:[address] [facility] THB ARTERIAL 8.7(L) 12.0 - 18.0 g/dL 12/09/2024 6:[address] [facility] COLLECTION SITE Left Radial 12/09/2024 6:[address] [facility] Arterial Puncture Yes 12/09/2024 6:[address] [facility] Blood Gas O2 Delivery Device Cannula 12/09/2024 6:[address] [facility] Oxygen Flow Rate 4 12/10/19 6:[address] [facility] Blood Gas PT Temperature C 37.0 12/09/2024 6:[address] [facility] Sen's Test Acceptable 12/09/2024 6:[address] [facility] Critical Values Notification Critical Blood gas called to DAYANARA MILES . [place] [id number] and confirmed on 12/09/2024 06:51 12/09/2024 6:[address] [facility] ABG Number of Draw Attempts 1 12/09/2024 6:[address] [facility] FIO2 12/09/2024 6:[address] [facility] Blood Gas Temperature Corrected Results No No 12/09/2024 6:[address] [facility] Blood, Arterial ENTIRE LEFT UPPER ARM / Unknown 12/09/2024 6:37 AM EDT 12/09/2024 6:52 AM EDT us Blanka Malagon MD LAB BLOOD ORDERABLES Final Re sult Performing Organization Address [facility]/ZIP Co de Phone Number [facility] [address] [phone] * (ABNORMAL) Glucose, Nova Meter (12/09/2024 5:45 AM EDT) POC-GLUCOSE 148(H) 70 - 110 mg/dL 12/09/2024 5:[address] [facility] Comment: In the event of poor peripheral blood flow, venous or arterial blood should be used due to the potential of erroneous results. Notified Nurse RBV Raisin Washer [phone] 12/09/2024 5:[address] [facility] Blood WHOLE BLOOD / Unknown 12/09/2024 5:45 AM EDT 12/09/2024 5:[address] [facility] - 12/09/2024 5:46 AM EDT Raisin Washer ID is - [id number] us Mary Carmen Mcfadden MD POINT OF CARE TEST ORDERABLES F inal Result Performing Organization Address [facility]/ZIP Co de Phone Number [facility] [address] [phone] * (ABNORMAL) CBC - Hemogram (SJ-BKR) (12/09/2024 3:38 AM EDT) WBC 2.4(L) 4.0 - 10.0 K/ L 12/09/2024 3:[address] [facility] RBC 2.83(L) 3.93 - 5.22 M/ L 12/09/2024 3:[address] [facility] Hemoglobin 8.5(L) 11.2 - 15.7 GM/DL 12/09/2024 3:[address] [facility] Hematocrit 28.0(L) 34.1 - 44.9 % 12/09/2024 3:[address] [facility] MCV 99(H) 79 - 95 fL 12/09/2024 3:[address] [facility] MCH 30.0 25.6 - 32.2 pg 12/09/2024 3:[address] [facility] MCHC 30.4(L) 32.2 - 35.5 GM/DL 12/09/2024 3:[address] [facility] RDW 17.2(H) 11.7 - 14.4 % 12/09/2024 3:[address] [facility] Platelets 55(L) 140 - 375 K/CU MM 12/09/2024 3:[address] [facility] MPV 11.5 9.4 - 12.3 fL 12/09/2024 3:[address] [facility] Blood Venipuncture / Unknown 12/09/2024 3:38 AM EDT 12/09/2024 3:45 AM EDT us Mary Carmen Mcfadden MD LAB BLOOD ORDERABLES Final Resu lt [facility] [address] [place] [id number] [phone] * (ABNORMAL) Basic Metabolic Panel (12/09/2024 3:38 AM EDT) Sodium 148(H) 136 - 145 meq/L 12/09/2024 4:[address] [facility] Potassium 3.6 3.4 - 5.1 meq/L 12/09/2024 4:[address] [facility] CO2 23 22 - 29 meq/L 12/09/2024 4:[address] [facility] Chloride 116(H) 98 - 112 meq/L 12/09/2024 4:[address] [facility] Glucose 146(H) 82 - 115 mg/dL 12/09/2024 4:[address] [facility] BUN 77.3(H) 9.8 - 20.1 mg/dL 12/09/2024 4:[address] [facility] Creatinine 2.82(H) 0.57 - 1.11 mg/dL 12/09/2024 4:[address] [facility] BUN/Creatinine 27(H) 8 - 20 12/09/2024 4:[address] [facility] Calcium 8.7 8.4 - 10.2 mg/dL 12/09/2024 4:[address] [facility] Anion Gap 13(H) 4 - 12 12/09/2024 4:[address] [facility] eGFR (mL/min/1.73m2) 18(L) >=60 mL/min/1.7 3m2 12/09/2024 4:[address] [facility] Osmolality Calc 320.0 mOsm/kg 4:[address] [facility] Blood Venipuncture / Unknown 12/09/2024 3:38 AM EDT 12/09/2024 3:45 AM EDT us Mary Carmen Mcfadden MD LAB BLOOD ORDERABLES Final Resu lt [facility] 1 [place] [address], [facility] [phone] * (ABNORMAL) Glucose, Nova Meter (12/08/2024 8:08 PM EDT) POC-GLUCOSE 172(H) 70 - 110 mg/dL 12/08/2024 8:[address] [facility] Comment: In the event of poor peripheral blood flow, venous or arterial blood should be used due to the potential of erroneous results. Notified Nurse RBV Raisin Washer [phone] 12/08/2024 8:[address] [facility] Blood WHOLE BLOOD / Unknown 12/08/2024 8:08 PM EDT 12/08/2024 8:[address] [facility] - 12/08/2024 8:08 PM EDT Raisin Washer ID is - [id number] Mary Carmen Mcfadden MD POINT OF CARE TEST ORDERABLES F inal Result Performing Organization Address City/State/[facility] Co de Phone Number [facility] [address] [phone] * (ABNORMAL) Glucose, Nova Meter (12/08/2024 3:34 PM EDT) POC-GLUCOSE 159(H) 70 - 110 mg/dL 12/08/2024 3:[address] [facility] Comment: In the event of poor peripheral blood flow, venous or arterial blood should be used due to the potential of erroneous results. Notified Nurse RBV Raisin Washer [phone] 12/08/2024 3:[address] [facility] Blood WHOLE BLOOD / Unknown 12/08/2024 3:34 PM EDT 12/08/2024 3:[address] [facility] - 12/08/2024 3:36 PM EDT Raisin Washer ID is - [id number] us Mary Carmen Mcfadden MD POINT OF CARE TEST ORDERABLES F inal Result Performing Organization Address City/[facility]/ZIP Co de Phone Number [facility] 1 [place] [address], [facility] [phone] * (ABNORMAL) Glucose, Nova Meter (12/08/2024 10:57 AM EDT) POC-GLUCOSE 191(H) 70 - 110 mg/dL 12/08/2024 10:[address] [facility] Comment: In the event of poor peripheral blood flow, venous or arterial blood should be used due to the potential of erroneous results. Protocols Followed Notified Nurse RBV Raisin Washer [phone] 12/08/2024 10:[address] [facility] Blood WHOLE BLOOD / Unknown 12/08/2024 10:57 AM EDT 12/08/2024 10:[address] [facility] - 12/08/2024 10:59 AM EDT Raisin Washer ID is - [id number] us Mary Carmen Mcfadden MD POINT OF CARE TEST ORDERABLES F inal Result Performing Organization Address [facility] Co de Phone Number [facility] [address] [place] [address] * ECG 12 lead (12/08/2024 10:55 AM EDT) VENTRICULAR RATE EKG/MIN 92 BPM GE MUSE ATRIAL RATE (MCT) 92 BPM GE MUSE ID Interval 138 ms GE MUSE QRS-INTERVAL (MSEC) 94 ms GE MUSE QT Interval 354 ms GE MUSE QTC Interval 437 ms GE MUSE P [place] 30 degrees GE MUSE R AXIS (MCT) -11 degrees GE MUSE T Wave [place] 37 degrees GE MUSE [place] Diagnosis Normal sinus rhythm Minimal voltage criteria for LVH, may be normal variant Septal infarct , age undetermined Confirmed by DEYSI FOSS M.D. ([id number]) on 12/08/2024 4:27:47 PM GE MUSE 12/08/2024 10:5 5 AM EDT 12/08/2024 4:27 PM EDT us Deysi Foss MD ECG ORDERABLES Final Result Performing Organization Address City/[facility]/ZIP Co de Phone Number GE MUSE * (ABNORMAL) Blood gas, arterial (12/08/2024 7:13 AM EDT) pH, Arterial 7.26(L) 7.35 - 7.45 12/08/2024 7:[address] [facility] pCO2, Arterial 54(H) 35 - 45 mm Hg 12/08/2024 7:[address] [facility] pO2, Arterial 80 80 - 100 mm Hg 12/08/2024 7:[address] [facility] HCO3, Arterial 24 20 - 26 mmol/L 12/08/2024 7:[address] [facility] Base Excess, Arterial -2.9(L) -2.0 - 2.0 mmol/L 12/08/2024 7:[address] [facility] O2 Sat, Arterial 96.7 95.0 - 100.0 % 12/08/2024 7:[address] [facility] CTO2 ARTERIAL 11.8 mmol/L 12/08/2024 7:[address] [facility] THB ARTERIAL 8.8(L) 12.0 - 18.0 g/dL 12/08/2024 7:[address] [facility] COLLECTION SITE Right Brachial 12/08/2024 7:[address] [facility] Arterial Puncture Yes 12/08/2024 7:[address] [facility] Blood Gas O2 Delivery Device Cannula 12/08/2024 7:[address] [facility] Oxygen Flow Rate 4 12/09/19 7:[address] [facility] Blood Gas PT Temperature C 37.0 12/08/2024 7:[address] [facility] Sen's Test Not Applicable 12/09/19 7:[address] [facility] Critical Values Notification Critical Blood gas called to KNOWN CONDITION . Results acknowledged/r ead back to [id number] and confirmed on 12/08/2024 07:30 12/08/2024 7:[address] [facility] ABG Number of Draw Attempts 1 12/08/2024 7:[address] [facility] FIO2 12/08/2024 7:[address] [facility] Blood Gas Temperature Corrected Results No No 12/08/2024 7:[address] [facility] Blood, Arterial 12/08/2024 7 :13 AM EDT 12/08/2024 7:31 AM EDT Mary Carmen Mcfadden MD LAB BLOOD ORDERABLES Final Resu lt [facility] [address] [phone] * (ABNORMAL) Glucose, Nova Meter (12/08/2024 6:08 AM EDT) POC-GLUCOSE 136(H) 70 - 110 mg/dL 12/08/2024 6:[address] [facility] Comment: In the event of poor peripheral blood flow, venous or arterial blood should be used due to the potential of erroneous results. Protocols Followed Notified Nurse RBV Raisin Washer [phone] 12/08/2024 6:[address] [facility] Blood WHOLE BLOOD / Unknown 12/08/2024 6:08 AM EDT 12/08/2024 6:[address] [facility] - 12/08/2024 6:09 AM EDT Raisin Washer ID is - [id number] Mary Carmen Mcfadden MD POINT OF CARE TEST ORDERABLES F inal Result Performing Organization Address City/[facility]/ZIP Co de Phone Number [facility] [address] [phone] * (ABNORMAL) CBC - Hemogram (SJ-BKR) (12/08/2024 4:10 AM EDT) WBC 3.1(L) 4.0 - 10.0 K/ L 12/08/2024 4:[address] [facility] RBC 2.84(L) 3.93 - 5.22 M/ L 12/08/2024 4:[address] [facility] Hemoglobin 8.7(L) 11.2 - 15.7 GM/DL 12/08/2024 4:[address] [facility] Hematocrit 28.2(L) 34.1 - 44.9 % 12/08/2024 4:[address] [facility] MCV 99(H) 79 - 95 fL 12/08/2024 4:[address] [facility] MCH 30.6 25.6 - 32.2 pg 12/08/2024 4:[address] [facility] MCHC 30.9(L) 32.2 - 35.5 GM/DL 12/08/2024 4:[address] [facility] RDW 17.4(H) 11.7 - 14.4 % 12/08/2024 4:[address] [facility] Platelets 54(L) 140 - 375 K/CU MM 12/08/2024 4:[address] [facility] MPV 11.2 9.4 - 12.3 fL 12/08/2024 4:[address] [facility] Blood Venipuncture / Unknown 12/08/2024 4:10 AM EDT 12/08/2024 4:37 AM EDT us Mary Carmen Mcfadden MD LAB BLOOD ORDERABLES Final Resu lt [facility] [address] [phone] * (ABNORMAL) Basic Metabolic Panel (12/08/2024 4:10 AM EDT) Sodium 149(H) 136 - 145 meq/L 12/08/2024 5:[address] [facility] Potassium 3.6 3.4 - 5.1 meq/L 12/08/2024 5:[address] [facility] CO2 23 22 - 29 meq/L 12/08/2024 5:[address] [facility] Chloride 116(H) 98 - 112 meq/L 12/08/2024 5:[address] [facility] Glucose 160(H) 82 - 115 mg/dL 12/08/2024 5:[address] [facility] BUN 76.4(H) 9.8 - 20.1 mg/dL 12/08/2024 5:[address] [facility] Creatinine 2.92(H) 0.57 - 1.11 mg/dL 12/08/2024 5:[address] [facility] BUN/Creatinine 26(H) 8 - 20 12/08/2024 5:[address] [facility] Calcium 8.7 8.4 - 10.2 mg/dL 12/08/2024 5:[address] [facility] Anion Gap 14(H) 4 - 12 12/08/2024 5:[address] [facility] eGFR (mL/min/1.73m2) 18(L) >=60 mL/min/1.7 3m2 12/08/2024 5:[address] [facility] Osmolality Calc 322.3 mOsm/kg 5:[address] [facility] Blood Venipuncture / Unknown 12/08/2024 4:10 AM EDT 12/08/2024 4:40 AM EDT Mary Carmen Mcfadden MD LAB BLOOD ORDERABLES Final Resu lt Performing Organization Address [facility] Co de Phone Number [facility] [address] [phone] * (ABNORMAL) Glucose, Nova Meter (12/07/2024 7:54 PM EDT) [facility] Signature POC-GLUCOSE 164(H) 70 - 110 mg/dL 12/07/2024 7:[address] [facility] Comment: In the event of poor peripheral blood flow, venous or arterial blood should be used due to the potential of erroneous results. Protocols Followed Notified Nurse RBV Raisin Washer [phone] 12/07/2024 7:[address] [facility] Blood WHOLE BLOOD / Unknown 12/07/2024 7:54 PM EDT 12/07/2024 7:[address] [facility] - 12/07/2024 7:55 PM EDT Raisin Washer ID is - [id number] Mary Carmen Mcfadden MD POINT OF CARE TEST ORDERABLES F inal Result [facility] [address] [place] [address], [facility] [phone] * (ABNORMAL) ABG (12/07/2024 4:21 PM EDT) pH, Arterial 7.29(L) 7.35 - 7.45 12/07/2024 4:[address] [facility] pCO2, Arterial 50(H) 35 - 45 mm Hg 12/07/2024 4:[address] [facility] pO2, Arterial 179(H) 80 - 100 mm Hg 12/07/2024 4:[address] [facility] HCO3, Arterial 24 20 - 26 mmol/L 12/07/2024 4:[address] [facility] Base Excess, Arterial -2.3(L) -2.0 - 2.0 mmol/L 12/07/2024 4:[address] [facility] O2 Sat, Arterial >100.0(H) 95.0 - 100.0 % 12/07/2024 4:[address] [facility] Comment:[id number] notified MORRIS LORENZ RN at 12/07/2024 16:42 read-back verification CTO2 ARTERIAL 12.0 mmol/L 12/07/2024 4:[address] [facility] THB ARTERIAL 8.4(L) 12.0 - 18.0 g/dL 12/07/2024 4:[address] [facility] PaO2/FIO2 calculated 359.0 12/07/2024 4:[address] [facility] COLLECTION SITE Right Brachial 12/07/2024 4:[address] [facility] Arterial Puncture Yes 12/07/2024 4:[address] [facility] Blood Gas O2 Delivery Device NIV 12/07/2024 4:[address] [facility] Blood Gas PT Temperature C 37.0 12/07/2024 4:[address] [facility] Sen's Test Not Applicable 12/08/19 4:[address] [facility] Critical Values Notification Critical Blood gas called to SEB LORENZ RN . Results acknowledged/r ead back to [id number] and confirmed on 12/07/2024 16:42 12/07/2024 4:[address] [facility] ABG Number of Draw Attempts 2 12/07/2024 4:[address] [facility] Set Rate 16.0 12/07/2024 4:[address] [facility] IPAP 10 12/07/2024 4:[address] [facility] EPAP 6 12/07/2024 4:[address] [facility] FIO2 50.0 12/07/2024 4:[address] [facility] Blood Gas Temperature Corrected Results No No 12/07/2024 4:[address] [facility] Blood, Arterial 12/07/2024 4 :21 PM EDT 12/07/2024 4:43 PM EDT us Blanka Malagon MD LAB BLOOD ORDERABLES Final Re sult Performing Organization Address [facility]/ZIP Co de Phone Number [facility] [address] [phone] * (ABNORMAL) Glucose, Nova Meter (12/07/2024 3:39 PM EDT) [facility] POC-GLUCOSE 159(H) 70 - 110 mg/dL 12/07/2024 3:[address] [facility] Comment: In the event of poor peripheral blood flow, venous or arterial blood should be used due to the potential of erroneous results. Notified Nurse RBV Raisin Washer [phone] 12/07/2024 3:[address] [facility] Blood WHOLE BLOOD / Unknown 12/07/2024 3:39 PM EDT 12/07/2024 3:[address] [facility] - 12/07/2024 3:41 PM EDT Raisin Washer ID is - [id number] us MaryC armen Mcfadden MD POINT OF CARE TEST ORDERABLES F inal Result Performing Organization Address [facility]/ZIP Co de Phone Number [facility] [address] [phone] * XR chest AP portable (12/07/2024 2:25 [...] 7.35 - 7.45 12/07/2024 3:[address] [facility] pCO2, Arterial 50(H) 35 - 45 mm Hg 12/07/2024 3:[address] [facility] pO2, Arterial 58(L) 80 - 100 mm Hg 12/07/2024 3:[address] [facility] HCO3, Arterial 24 20 - 26 mmol/L 12/07/2024 3:[address] [facility] Base Excess, Arterial -3.3(L) -2.0 - 2.0 mmol/L 12/07/2024 3:[address] [facility] O2 Sat, Arterial 91.3(L) 95.0 - 100.0 % 12/07/2024 3:[address] [facility] CTO2 ARTERIAL 11.2 mmol/L 12/07/2024 3:[address] [facility] THB ARTERIAL 8.9(L) 12.0 - 18.0 g/dL 12/07/2024 3:[address] [facility] COLLECTION SITE Right Radial 12/07/2024 3:[address] [facility] Arterial Puncture Yes 12/07/2024 3:[address] [facility] Blood Gas O2 Delivery Device Cannula 12/07/2024 3:[address] [facility] Oxygen Flow Rate 2 12/07/2024 3:[address] [facility] Blood Gas PT Temperature C 37.0 12/07/2024 3:[address] [facility] Sen's Test Unacceptable 12/07/2024 3:[address] [facility] Vent Mode Other 12/07/2024 3:[address] [facility] Critical Values Notification Critical Blood gas called to DR MALAGON . [place] [id number] and confirmed on 12/07/2024 14:14 12/07/2024 3:[address] [facility] ABG Number of Draw Attempts 1 12/07/2024 3:[address] [facility] Performed by: CD 12/07/2024 3:[address] [facility] FIO2 12/07/2024 3:[address] [facility] Blood Gas Temperature Corrected Results No No 12/07/2024 3:[address] [facility] Blood, Arterial 12/07/2024 2 :02 PM EDT 12/07/2024 2:14 PM EDT us Mary Carmen Mcfadden MD LAB BLOOD ORDERABLES Final Resu lt [facility] [address] [phone] * (ABNORMAL) Glucose, Nova Meter (12/07/2024 10:54 AM EDT) [facility] POC-GLUCOSE 146(H) 70 - 110 mg/dL 12/07/2024 10:[address] [facility] Comment: In the event of poor peripheral blood flow, venous or arterial blood should be used due to the potential of erroneous results. Notified Nurse RBV Raisin Washer [phone] 12/07/2024 10:[address] [facility] Blood WHOLE BLOOD / Unknown 12/07/2024 10:54 AM EDT 12/07/2024 10:[address] [facility] - 12/07/2024 10:56 AM EDT Raisin Washer ID is - [id number] Mary Carmen Mcfadden MD POINT OF CARE TEST ORDERABLES F inal Result [facility] [address] [phone] * (ABNORMAL) Blood gas, arterial (12/07/2024 10:36 AM EDT) [facility] pH, Arterial 7.26(L) 7.35 - 7.45 12/07/2024 1:[address] [facility] pCO2, Arterial 50(H) 35 - 45 mm Hg 12/07/2024 1:[address] [facility] pO2, Arterial 43(LL) 80 - 100 mm Hg 12/07/2024 1:[address] [facility] HCO3, Arterial 22 20 - 26 mmol/L 12/07/2024 1:[address] [facility] Base Excess, Arterial -4.7(L) -2.0 - 2.0 mmol/L 12/07/2024 1:[address] [facility] O2 Sat, Arterial 80.4(L) 95.0 - 100.0 % 12/07/2024 1:[address] [facility] Comment:[id number] notified TRAY LORENZ RN at 12/07/2024 10:51 read-back verification CTO2 ARTERIAL 9.4 mmol/L 12/07/2024 1:[address] [facility] THB ARTERIAL 8.5(L) 12.0 - 18.0 g/dL 12/07/2024 1:[address] [facility] PaO2/FIO2 calculated 203.0 12/07/2024 1:[address] [facility] COLLECTION SITE Right Radial 12/07/2024 1:[address] [facility] Arterial Puncture Yes 12/07/2024 1:[address] [facility] Blood Gas PT Temperature C 37.0 12/07/2024 1:[address] [facility] Sen's Test Acceptable 12/07/2024 1:[address] [facility] Critical Values Notification Critical Blood gas called to TRAY LORENZ RN . [place] [id number] and confirmed on 12/07/2024 10:51 12/07/2024 1:[address] [facility] ABG Number of Draw Attempts 1 12/07/2024 1:[address] [facility] FIO2 21.0 12/07/2024 1:[address] [facility] Blood Gas Temperature Corrected Results No No 12/07/2024 1:[address] [facility] Blood, Arterial 12/07/2024 1 0:36 AM EDT 12/07/2024 1:50 PM EDT us Mary Carmen Mcfadden MD LAB BLOOD ORDERABLES Final Resu lt [facility] [address] [phone] * ECG 12 lead (12/07/2024 10:29 AM EDT) VENTRICULAR RATE EKG/MIN 91 BPM GE MUSE ATRIAL RATE (MCT) 91 BPM GE MUSE ID Interval 142 ms GE MUSE QRS-INTERVAL (MSEC) 88 ms GE MUSE QT Interval 376 ms GE MUSE QTC Interval 462 ms GE MUSE P [place] 39 degrees GE MUSE R AXIS (MCT) -3 degrees GE MUSE T Wave [place] 4 degrees GE MUSE [place] Diagnosis Normal sinus rhythm Nonspecific T wave abnormality Abnormal ECG When compared with ECG of 06-DEC-2024 13:16, No significant change was found Confirmed by DEYSI FOSS M.D. ([id number]) on 12/07/2024 7:36:17 PM GE MUSE 12/07/2024 10:2 9 AM EDT 12/07/2024 7:36 PM EDT Mary Carmen Mcfadden MD ECG ORDERABLES Final Result Performing Organization Address [facility] Co de Phone Number GE MUSE * (ABNORMAL) Glucose, Nova Meter (12/07/2024 5:51 AM EDT) Pathologist [facility] POC-GLUCOSE 159(H) 70 - 110 mg/dL 12/07/2024 5:[address] [facility] Comment: In the event of poor peripheral blood flow, venous or arterial blood should be used due to the potential of erroneous results. Notified Nurse RBV Raisin Washer [phone] 12/07/2024 5:[address] [facility] Blood WHOLE BLOOD / Unknown 12/07/2024 5:51 AM EDT 12/07/2024 5:[address] [facility] - 12/07/2024 5:52 AM EDT Raisin Washer ID is - [id number] Mary Carmen Mcfadden MD POINT OF CARE TEST ORDERABLES F inal Result [facility] [address] [phone] * Erythropoietin(SENDOUT) (12/07/2024 3:59 AM EDT) Pathologist [facility] Erythropoietin 19 4 - 27 mU/mL 12/08/2024 2:30 PM EDT [facility] Comment: INTERPRETIVE INFORMATION: Erythropoietin Normal serum [...] may benefit from therapy with recombinant EPO ([facility] [id number],1989). Performed By: [facility] [address] [place] [address] Public Safety Director: Lalo Mortensen MD, PhD CLIA Number: [id number] Blood Venipuncture / Unknown 12/07/2024 3:59 AM EDT 12/07/2024 4:11 AM EDT us Ariel Mills MD LAB BLOOD ORDERABLES Final Res ult [facility] [address] [place] [address], [facility] [phone] * Ammonia (12/07/2024 3:59 AM EDT) Ammonia 44 18 - 72 mol/L 12/07/2024 4:[address] [facility] Blood Venipuncture / Unknown 12/07/2024 3:59 AM EDT 12/07/2024 4:22 AM EDT us Timothy Bai MD LAB BLOOD ORDERABLES Final Result [facility] [address] [place] [id number] [phone] * (ABNORMAL) Comprehensive Metabolic Panel (12/07/2024 3:59 AM EDT) Sodium 146(H) 136 - 145 meq/L 12/07/2024 4:[address] [facility] Potassium 3.8 3.4 - 5.1 meq/L 12/07/2024 4:[address] [facility] Chloride 118(H) 98 - 112 meq/L 12/07/2024 4:[address] [facility] CO2 20(L) 22 - 29 meq/L 12/07/2024 4:[address] [facility] Calcium 8.4 8.4 - 10.2 mg/dL 12/07/2024 4:[address] [facility] Glucose 166(H) 82 - 115 mg/dL 12/07/2024 4:[address] [facility] BUN 72.9(H) 9.8 - 20.1 mg/dL 12/07/2024 4:[address] [facility] Creatinine 3.13(H) 0.57 - 1.11 mg/dL 12/07/2024 4:[address] [facility] BUN/Creatinine 23(H) 8 - 20 12/07/2024 4:[address] [facility] eGFR (mL/min/1.73m2) 16(L) >=60 mL/min/1. 73m2 12/07/2024 4:[address] [facility] Albumin 4.1 3.5 - 5.0 g/dL 12/07/2024 4:[address] [facility] Alkaline Phosphatase 48 40 - 150 U/L 12/07/2024 4:[address] [facility] ALT 9 <=34 U/L 12/07/2024 4:[address] [facility] Comment: ALT2 reagent used for testing does not contain P5P supplementation and therefore may miss ALT elevations in patients with B6 deficiency. This population may be as high as 10% in the [place], with risk factors including malabsorption, drug interactions, and alcoholic hepatitis. AST 24 11 - 34 U/L 12/07/2024 4:[address] [facility] Comment: AST2 reagent used for testing does not contain P5P supplementation and therefore may miss AST elevations in patients with B6 deficiency. This population may be as high as 10% in the [place], with risk factors including malabsorption, drug interactions, and alcoholic hepatitis. Total Bilirubin 0.9 0.2 - 1.2 mg/dL 12/07/2024 4:[address] [facility] Protein, Total 6.4 6.4 - 8.3 g/dL 12/07/2024 4:[address] [facility] Globulin 2.3(L) 2.5 - 4.1 g/dL 12/07/2024 4:[address] [facility] Anion Gap 12 4 - 12 12/07/2024 4:[address] [facility] A/G Ratio 1.8 0.7 - 1.9 12/07/2024 4:[address] [facility] Osmolality Calc 315.8 mOsm/kg 4:[address] [facility] Blood Venipuncture / Unknown 12/07/2024 3:59 AM EDT 12/07/2024 4:09 AM EDT us Timothy Bai MD LAB BLOOD ORDERABLES Final Result [facility] [address] [phone] * Magnesium (12/07/2024 3:59 AM EDT) Magnesium 2.4 1.6 - 2.6 mg/dL 12/07/2024 4:[address] [facility] Blood Venipuncture / Unknown 12/07/2024 3:59 AM EDT 12/07/2024 4:09 AM EDT us Timothy Bai MD LAB BLOOD ORDERABLES Final Result Performing Organization Address City/State/[facility] Co de Phone Number [facility] [address] [phone] * (ABNORMAL) CBC - Hemogram (SJ-BKR) (12/07/2024 3:59 AM EDT) WBC 3.5(L) 4.0 - 10.0 K/ L 12/07/2024 4:[address] [facility] RBC 2.58(L) 3.93 - 5.22 M/ L 12/07/2024 4:[address] [facility] Hemoglobin 7.9(L) 11.2 - 15.7 GM/DL 12/07/2024 4:[address] [facility] Hematocrit 25.6(L) 34.1 - 44.9 % 12/07/2024 4:[address] [facility] MCV 99(H) 79 - 95 fL 12/07/2024 4:[address] [facility] MCH 30.6 25.6 - 32.2 pg 12/07/2024 4:[address] [facility] MCHC 30.9(L) 32.2 - 35.5 GM/DL 12/07/2024 4:[address] [facility] RDW 17.4(H) 11.7 - 14.4 % 12/07/2024 4:[address] [facility] Platelets 54(L) 140 - 375 K/CU MM 12/07/2024 4:[address] [facility] MPV 12.2 9.4 - 12.3 fL 12/07/2024 4:[address] [facility] Blood Venipuncture / Unknown 12/07/2024 3:59 AM EDT 12/07/2024 4:09 AM EDT Timothy Bai MD LAB BLOOD ORDERABLES Final Result [facility] [address] [phone] * (ABNORMAL) Glucose, Nova Meter (12/06/2024 7:26 PM EDT) POC-GLUCOSE 170(H) 70 - 110 mg/dL 12/06/2024 7:[address] [facility] Comment: In the event of poor peripheral blood flow, venous or arterial blood should be used due to the potential of erroneous results. Notified Nurse RBV Raisin Washer [phone] 12/06/2024 7:[address] [facility] Blood WHOLE BLOOD / Unknown 12/06/2024 7:26 PM EDT 12/06/2024 7:[address] [facility] - 12/06/2024 7:27 PM EDT Raisin Washer ID is - [id number] Mary Carmen Mcfadden MD POINT OF CARE TEST ORDERABLES F inal Result Performing Organization Address [facility]/ZIP Co de Phone Number [facility] [address] [phone] * (ABNORMAL) Glucose, Nova Meter (12/06/2024 4:06 PM EDT) POC-GLUCOSE 134(H) 70 - 110 mg/dL 12/06/2024 4:[address] [facility] Comment: In the event of poor peripheral blood flow, venous or arterial blood should be used due to the potential of erroneous results. Notified Nurse RBV Raisin Washer [phone] 12/06/2024 4:[address] [facility] Blood WHOLE BLOOD / Unknown 12/06/2024 4:06 PM EDT 12/06/2024 4:[address] [facility] - 12/06/2024 4:07 PM EDT Raisin Washer ID is - [id number] Mary Carmen Mcfadden MD POINT OF CARE TEST ORDERABLES F inal Result Performing Organization Address [facility] Co de Phone Number [facility] [address] [phone] * ECG 12 lead (12/06/2024 1:16 PM EDT) Pathologist [facility] VENTRICULAR RATE EKG/MIN 90 BPM GE MUSE ATRIAL RATE (MCT) 90 BPM GE MUSE ID Interval 142 ms GE MUSE QRS-INTERVAL (MSEC) 92 ms GE MUSE QT Interval 378 ms GE MUSE QTC Interval 462 ms GE MUSE P [place] 28 degrees GE MUSE R AXIS (MCT) -4 degrees GE MUSE T Wave [place] 21 degrees GE MUSE [place] Diagnosis Normal sinus rhythm Septal infarct , age undetermined Confirmed by DEYSI FOSS M.D. ([id number]) on 12/07/2024 7:40:21 PM GE MUSE 12/06/2024 1:16 PM EDT 12/07/2024 7:40 PM EDT us Deysi Foss MD ECG ORDERABLES Final Result Performing Organization Address [facility] Phone Number GE MUSE * (ABNORMAL) Glucose, Nova Meter (12/06/2024 10:36 AM EDT) [facility] POC-GLUCOSE 150(H) 70 - 110 mg/dL 12/06/2024 10:[address] [facility] Comment: In the event of poor peripheral blood flow, venous or arterial blood should be used due to the potential of erroneous results. Notified Nurse RBV Raisin Washer [phone] 12/06/2024 10:[address] [facility] Blood WHOLE BLOOD / Unknown 12/06/2024 10:36 AM EDT 12/06/2024 10:[address] [facility] - 12/06/2024 10:37 AM EDT Raisin Washer ID is - [id number] us Mary Carmen cMfadden MD POINT OF CARE TEST ORDERABLES F inal Result Performing Organization Address [facility] Co de Phone Number [facility] [address] [phone] * XR chest AP portable (12/06/2024 7:34 [...] - 110 mg/dL 12/06/2024 5:[address] [facility] Comment: In the event of poor peripheral blood flow, venous or arterial blood should be used due to the potential of erroneous results. Notified Nurse RBV Raisin Washer [phone] 12/06/2024 5:[address] [facility] Blood WHOLE BLOOD / Unknown 12/06/2024 5:26 AM EDT 12/06/2024 5:[address] [facility] - 12/06/2024 5:27 AM EDT Raisin Washer ID is - [id number] us Timothy Bai MD POINT OF CARE TEST ORDERAB LES Final Result Performing Organization Address [facility]/ZIP Co de Phone Number [facility] [address] [phone] * (ABNORMAL) Ferritin (12/06/2024 3:13 AM EDT) Ferritin 256.82(H) 4.63 - 204.00 ng/mL 12/06/2024 8:[address] [facility] Blood Venipuncture / Unknown 12/06/2024 3:13 AM EDT 12/06/2024 3:50 AM EDT us Ariel Mills MD LAB BLOOD ORDERABLES Final Res ult Performing Organization Address [facility] Co de Phone Number [facility] [address] [phone] * Ammonia (12/06/2024 3:13 AM EDT) Ammonia 47 18 - 72 mol/L 12/06/2024 4:[address] [facility] Blood Venipuncture / Unknown 12/06/2024 3:13 AM EDT 12/06/2024 3:51 AM EDT us Timothy Bai MD LAB BLOOD ORDERABLES Final Result Performing Organization Address [facility] Co de Phone Number [facility] [address] [phone] * (ABNORMAL) Comprehensive Metabolic Panel (12/06/2024 3:13 AM EDT) Sodium 146(H) 136 - 145 meq/L 12/06/2024 4:[address] [facility] Potassium 3.9 3.4 - 5.1 meq/L 12/06/2024 4:[address] [facility] Chloride 116(H) 98 - 112 meq/L 12/06/2024 4:26 AM [facility] CO2 20(L) 22 - 29 meq/L 12/06/2024 4:26 AM [facility] Calcium 8.6 8.4 - 10.2 mg/dL 12/06/2024 4:26 AM [facility] Glucose 149(H) 82 - 115 mg/dL 12/06/2024 4:26 AM [facility] BUN 63.3(H) 9.8 - 20.1 mg/dL 12/06/2024 4:26 AM [facility] Creatinine 3.37(H) 0.57 - 1.11 mg/dL 12/06/2024 4:26 AM [facility] BUN/Creatinine 19 8 - 20 12/06/2024 4:26 AM [facility] eGFR (mL/min/1.73m2) 15(L) >=60 mL/min/1. 73m2 12/06/2024 4:26 AM [facility] Albumin 4.6 3.5 - 5.0 g/dL 12/06/2024 4:26 AM [facility] Alkaline Phosphatase 47 40 - 150 U/L 12/06/2024 4:26 AM [facility] ALT 11 <=34 U/L 12/06/2024 4:26 AM [facility] Comment: ALT2 reagent used for testing does not contain P5P supplementation and therefore may miss ALT elevations in patients with B6 deficiency. This population may be as high as 10% in the [place], with risk factors including malabsorption, drug interactions, and alcoholic hepatitis. AST 21 11 - 34 U/L 12/06/2024 4:26 AM [facility] Comment: AST2 reagent used for testing does not contain P5P supplementation and therefore may miss AST elevations in patients with B6 deficiency. This population may be as high as 10% in the [place], with risk factors including malabsorption, drug interactions, and alcoholic hepatitis. Total Bilirubin 1.2 0.2 - 1.2 mg/dL 12/06/2024 4:26 AM [facility] Protein, Total 7.0 6.4 - 8.3 g/dL 12/06/2024 4:26 AM [facility] Globulin 2.4(L) 2.5 - 4.1 g/dL 12/06/2024 4:[address] [facility] Anion Gap 14(H) 4 - 12 12/06/2024 4:[address] [facility] A/G Ratio 1.9 0.7 - 1.9 12/06/2024 4:[address] [facility] Osmolality Calc 311.4 mOsm/kg 4:[address] [facility] Blood Venipuncture / Unknown 12/06/2024 3:13 AM EDT 12/06/2024 3:50 AM EDT Timothy Bai MD LAB BLOOD ORDERABLES Final Result Performing Organization Address [facility]/ZIP Co de Phone Number [facility] [address] [phone] * Magnesium (12/06/2024 3:13 AM EDT) Magnesium 2.4 1.6 - 2.6 mg/dL 12/06/2024 4:[address] [facility] Blood Venipuncture / Unknown 12/06/2024 3:13 AM EDT 12/06/2024 3:50 AM EDT Timothy Bai MD LAB BLOOD ORDERABLES Final Result Performing Organization Address [facility]/ZIP Co de Phone Number [facility] [address] [phone] * (ABNORMAL) CBC - Hemogram (SJ-BKR) (12/06/2024 3:13 AM EDT) WBC 7.0 4.0 - 10.0 K/ L 12/06/2024 4:[address] [facility] RBC 2.83(L) 3.93 - 5.22 M/ L 12/06/2024 4:[address] [facility] Hemoglobin 8.7(L) 11.2 - 15.7 GM/DL 12/06/2024 4:[address] [facility] Hematocrit 28.2(L) 34.1 - 44.9 % 12/06/2024 4:[address] [facility] MCV 100(H) 79 - 95 fL 12/06/2024 4:[address] [facility] MCH 30.7 25.6 - 32.2 pg 12/06/2024 4:[address] [facility] MCHC 30.9(L) 32.2 - 35.5 GM/DL 12/06/2024 4:[address] [facility] RDW 17.2(H) 11.7 - 14.4 % 12/06/2024 4:[address] [facility] Platelets 80(L) 140 - 375 K/CU MM 12/06/2024 4:[address] [facility] MPV 11.7 9.4 - 12.3 fL 12/06/2024 4:[address] [facility] Blood Venipuncture / Unknown 12/06/2024 3:13 AM EDT 12/06/2024 3:53 AM EDT us Timothy Bai MD LAB BLOOD ORDERABLES Final Result [facility] [address] [phone] * (ABNORMAL) Glucose, Nova Meter (12/05/2024 7:21 PM EDT) Pathologist [facility] POC-GLUCOSE 145(H) 70 - 110 mg/dL 12/05/2024 7:[address] [facility] Comment: In the event of poor peripheral blood flow, venous or arterial blood should be used due to the potential of erroneous results. Notified Nurse RBV Raisin Washer [phone] 12/05/2024 7:[address] [facility] Blood WHOLE BLOOD / Unknown 12/05/2024 7:21 PM EDT 12/05/2024 7:[address] [facility] - 12/05/2024 7:22 PM EDT Raisin Washer ID is - [phone] us Timothy Bai MD POINT OF CARE TEST ORDERAB LES Final Result [facility] [address] [phone] * (ABNORMAL) Glucose, Nova Meter (12/05/2024 5:01 PM EDT) POC-GLUCOSE 140(H) 70 - 110 mg/dL 12/05/2024 5:[address] [facility] Comment: In the event of poor peripheral blood flow, venous or arterial blood should be used due to the potential of erroneous results. Notified Nurse RBV Raisin Washer [phone] 12/05/2024 5:[address] [facility] Blood WHOLE BLOOD / Unknown 12/05/2024 5:01 PM EDT 12/05/2024 5:[address] [facility] - 12/05/2024 5:02 PM EDT Raisin Washer ID is - [phone] us Timothy Bai MD POINT OF CARE TEST ORDERAB LES Final Result Performing Organization Address [facility]/ZIP Co de Phone Number [facility] [address] [phone] * (ABNORMAL) Hemoglobin (12/05/2024 3:36 PM EDT) Pathologist [facility] Hemoglobin 8.1(L) 11.2 - 15.7 GM/DL 12/05/2024 3:[address] [facility] Blood Venipuncture / Unknown 12/05/2024 3:36 PM EDT 12/05/2024 3:47 PM EDT Timothy Bai MD LAB BLOOD ORDERABLES Final Result [facility] [address] [phone] * (ABNORMAL) Glucose, Nova Meter (12/05/2024 10:23 AM EDT) POC-GLUCOSE 141(H) 70 - 110 mg/dL 12/05/2024 10:[address] [facility] Comment: In the event of poor peripheral blood flow, venous or arterial blood should be used due to the potential of erroneous results. Notified Nurse RBV Protocols Followed Raisin Washer [phone] 12/05/2024 10:[address] [facility] Blood WHOLE BLOOD / Unknown 12/05/2024 10:23 AM EDT 12/05/2024 10:24 AM EDT [facility] - 12/05/2024 10:24 AM EDT Raisin Washer ID is - [phone] us Timothy Bai MD POINT OF CARE TEST ORDERAB LES Final Result Performing Organization Address [facility] Co de Phone Number [facility] [address] [phone] * (ABNORMAL) Glucose, Nova Meter (12/05/2024 8:10 AM EDT) Pathologist [facility] POC-GLUCOSE 123(H) 70 - 110 mg/dL 12/05/2024 8:[address] [facility] Comment: In the event of poor peripheral blood flow, venous or arterial blood should be used due to the potential of erroneous results. Notified Nurse RBV Raisin Washer [phone] 12/05/2024 8:[address] [facility] Blood WHOLE BLOOD / Unknown 12/05/2024 8:10 AM EDT 12/05/2024 8:[address] [facility] - 12/05/2024 8:27 AM EDT Raisin Washer ID is - [phone] us Timothy Bai MD POINT OF CARE TEST ORDERAB LES Final Result Performing Organization Address [facility] Co de Phone Number [facility] [address] [phone] * (ABNORMAL) Hemoglobin (12/05/2024 8:00 AM EDT) Hemoglobin 8.2(L) 11.2 - 15.7 GM/DL 12/05/2024 8:[address] [facility] Blood Venipuncture / Unknown 12/05/2024 8:00 AM EDT 12/05/2024 8:06 AM EDT Timothy Bai MD LAB BLOOD ORDERABLES Final Result [facility] [address] [phone] * Ammonia (12/05/2024 3:20 AM EDT) Ammonia 41 18 - 72 mol/L 12/05/2024 4:[address] [facility] Blood Venipuncture / Unknown 12/05/2024 3:20 AM EDT 12/05/2024 3:24 AM EDT Timothy Bai MD LAB BLOOD ORDERABLES Final Result [facility] [address] [phone] * (ABNORMAL) Comprehensive Metabolic Panel (12/05/2024 3:20 AM EDT) Sodium 146(H) 136 - 145 meq/L 12/05/2024 4:[address] [facility] Potassium 3.6 3.4 - 5.1 meq/L 12/05/2024 4:[address] [facility] Chloride 117(H) 98 - 112 meq/L 12/05/2024 4:[address] [facility] CO2 20(L) 22 - 29 meq/L 12/05/2024 4:[address] [facility] Calcium 8.3(L) 8.4 - 10.2 mg/dL 12/05/2024 4:11 AM [facility] Glucose 148(H) 82 - 115 mg/dL 12/05/2024 4:11 AM [facility] BUN 59.4(H) 9.8 - 20.1 mg/dL 12/05/2024 4:11 AM [facility] Creatinine 3.14(H) 0.57 - 1.11 mg/dL 12/05/2024 4:11 AM [facility] BUN/Creatinine 19 8 - 20 12/05/2024 4:11 AM [facility] eGFR (mL/min/1.73m2) 16(L) >=60 mL/min/1. 73m2 12/05/2024 4:11 AM [facility] Albumin 4.3 3.5 - 5.0 g/dL 12/05/2024 4:11 AM [facility] Alkaline Phosphatase 44 40 - 150 U/L 12/05/2024 4:11 AM [facility] ALT 8 <=34 U/L 12/05/2024 4:11 AM [facility] Comment: ALT2 reagent used for testing does not contain P5P supplementation and therefore may miss ALT elevations in patients with B6 deficiency. This population may be as high as 10% in the [place], with risk factors including malabsorption, drug interactions, and alcoholic hepatitis. AST 23 11 - 34 U/L 12/05/2024 4:11 AM [facility] Comment: AST2 reagent used for testing does not contain P5P supplementation and therefore may miss AST elevations in patients with B6 deficiency. This population may be as high as 10% in the [place], with risk factors including malabsorption, drug interactions, and alcoholic hepatitis. Total Bilirubin 1.2 0.2 - 1.2 mg/dL 12/05/2024 4:11 AM [facility] Protein, Total 6.4 6.4 - 8.3 g/dL 12/05/2024 4:11 AM [facility] Globulin 2.1(L) 2.5 - 4.1 g/dL 12/05/2024 4:11 AM [facility] Anion Gap 13(H) 4 - 12 12/05/2024 4:[address] [facility] A/G Ratio 2.0(H) 0.7 - 1.9 12/05/2024 4:[address] [facility] Osmolality Calc 310.0 mOsm/kg 4:[address] [facility] Blood Venipuncture / Unknown 12/05/2024 3:20 AM EDT 12/05/2024 3:24 AM EDT Timothy Bai MD LAB BLOOD ORDERABLES Final Result Performing Organization Address [facility]/ZIP Co de Phone Number [facility] [address] [phone] * Magnesium (12/05/2024 3:20 AM EDT) Magnesium 2.3 1.6 - 2.6 mg/dL 12/05/2024 4:[address] [facility] Blood Venipuncture / Unknown 12/05/2024 3:20 AM EDT 12/05/2024 3:24 AM EDT Timothy Bai MD LAB BLOOD ORDERABLES Final Result Performing Organization Address City/[facility] Co de Phone Number [facility] [address] [phone] * (ABNORMAL) CBC - Hemogram (SJ-BKR) (12/05/2024 3:20 AM EDT) WBC 4.2 4.0 - 10.0 K/ L 12/05/2024 3:[address] [facility] RBC 2.64(L) 3.93 - 5.22 M/ L 12/05/2024 3:[address] [facility] Hemoglobin 8.2(L) 11.2 - 15.7 GM/DL 12/05/2024 3:[address] [facility] Hematocrit 25.9(L) 34.1 - 44.9 % 12/05/2024 3:[address] [facility] MCV 98(H) 79 - 95 fL 12/05/2024 3:[address] [facility] MCH 31.1 25.6 - 32.2 pg 12/05/2024 3:[address] [facility] MCHC 31.7(L) 32.2 - 35.5 GM/DL 12/05/2024 3:[address] [facility] RDW 17.1(H) 11.7 - 14.4 % 12/05/2024 3:[address] [facility] Platelets 60(L) 140 - 375 K/CU MM 12/05/2024 3:[address] [facility] MPV 11.3 9.4 - 12.3 fL 12/05/2024 3:[address] [facility] Blood Venipuncture / Unknown 12/05/2024 3:20 AM EDT 12/05/2024 3:24 AM EDT Timothy Bai MD LAB BLOOD ORDERABLES Final Result [facility] [address] [phone] * (ABNORMAL) Hemoglobin (12/04/2024 11:54 PM EDT) Hemoglobin 8.7(L) 11.2 - 15.7 GM/DL 12/05/2024 12:[address] [facility] Blood Venipuncture / Unknown 12/04/2024 11:54 PM EDT 12/04/2024 11:59 PM EDT Timothy Bai MD LAB BLOOD ORDERABLES Final Result [facility] [address] [phone] * (ABNORMAL) Glucose, Nova Meter (12/04/2024 10:20 PM EDT) Pathologist [facility] POC-GLUCOSE 147(H) 70 - 110 mg/dL 12/04/2024 10:[address] [facility] Comment: In the event of poor peripheral blood flow, venous or arterial blood should be used due to the potential of erroneous results. Protocols Followed Raisin Washer [phone] 12/04/2024 10:[address] [facility] Blood WHOLE BLOOD / Unknown 12/04/2024 10:20 PM EDT 12/04/2024 10:[address] [facility] - 12/04/2024 10:22 PM EDT Raisin Washer ID is - [id number] us Timothy Bai MD POINT OF CARE TEST ORDERAB LES Final Result Performing Organization Address [facility]/ZIP Co de Phone Number [facility] [address] [phone] * ECG 12 lead (12/04/2024 8:08 PM EDT) Pathologist [facility] SYSTOLIC BLOOD PRESSURE (MCT) 133 mmHg GE MUSE DIASTOLIC BLOOD PRESSURE (MCT) 61 mmHg GE MUSE VENTRICULAR RATE EKG/MIN 85 BPM GE MUSE ATRIAL RATE (MCT) 85 BPM GE MUSE ID Interval 140 ms GE MUSE QRS-INTERVAL (MSEC) 94 ms GE MUSE QT Interval 426 ms GE MUSE QTC Interval 506 ms GE MUSE P [place] 44 degrees GE MUSE R AXIS (MCT) 27 degrees GE MUSE T Wave [place] -27 degrees GE MUSE [place] Diagnosis Normal sinus rhythm Nonspecific T wave abnormality Abnormal ECG Confirmed by DEYSI FOSS M.D. ([id number]) on 12/05/2024 1:52:09 PM GE MUSE 12/04/2024 8:08 PM EDT 12/05/2024 1:52 PM EDT us Timothy Bai MD ECG ORDERABLES Final Resu lt Performing Organization Address City/[facility]/ZIP Co de Phone Number GE MUSE * (ABNORMAL) Glucose, Nova Meter (12/04/2024 4:50 PM EDT) Pathologist [facility] POC-GLUCOSE 137(H) 70 - 110 mg/dL 12/04/2024 4:[address] [facility] Comment: In the event of poor peripheral blood flow, venous or arterial blood should be used due to the potential of erroneous results. Protocols Followed Raisin Washer [id number] 12/04/2024 4:[address] [facility] Blood WHOLE BLOOD / Unknown 12/04/2024 4:50 PM EDT 12/04/2024 4:[address] [facility] - 12/04/2024 4:51 PM EDT Raisin Washer ID is - [id number] us Timothy Bai MD POINT OF CARE TEST ORDERAB LES Final Result Performing Organization Address [facility]/ZIP Co de Phone Number [facility] [address] [phone] * (ABNORMAL) Hemoglobin (12/04/2024 4:27 PM EDT) [facility] Hemoglobin 8.9(L) 11.2 - 15.7 GM/DL 12/04/2024 4:[address] [facility] Blood Venipuncture / Unknown 12/04/2024 4:27 PM EDT 12/04/2024 4:31 PM EDT us Timothy Bai MD LAB BLOOD ORDERABLES Final Result Performing Organization Address City/[facility]/ZIP Co de Phone Number [facility] [address] [phone] * (ABNORMAL) Basic Metabolic Panel (12/04/2024 10:53 AM EDT) [facility] Sodium 146(H) 136 - 145 meq/L 12/04/2024 11:[address] [facility] Potassium 3.6 3.4 - 5.1 meq/L 12/04/2024 11:[address] [facility] CO2 20(L) 22 - 29 meq/L 12/04[facility]24 [facility] Chloride 116(H) 98 - 112 meq/L 12/04/2024 11:[address] [facility] Glucose 137(H) 82 - 115 mg/dL 12/04/2024 11:[address] [facility] BUN 61.1(H) 9.8 - 20.1 mg/dL 12/04/2024 11:17 AM [facility] Creatinine 3.38(H) 0.57 - 1.11 mg/dL 12/04/2024 11:17 AM [facility] BUN/Creatinine 18 8 - 20 12/04/2024 11:17 AM [facility] Calcium 8.5 8.4 - 10.2 mg/dL 12/04/2024 11:17 AM [facility] Anion Gap 14(H) 4 - 12 12/04/2024 11:17 AM [facility] eGFR (mL/min/1.73m2) 15(L) >=60 mL/min/1.7 3m2 12/04/2024 11:17 AM [facility] Osmolality Calc 310.0 mOsm/kg 11:17 AM [facility] Blood Venipuncture / Unknown 12/04/2024 10:53 AM EDT 12/04/2024 10:57 AM EDT us Timothy Bai MD LAB BLOOD ORDERABLES Final Result Performing Organization Address City/State/[facility] Co de Phone Number [facility] [address] [place] [address] * (ABNORMAL) Glucose, Nova Meter (12/04/2024 10:52 AM EDT) POC-GLUCOSE 136(H) 70 - 110 mg/dL 12/04/2024 10:[address] [facility] Comment: In the event of poor peripheral blood flow, venous or arterial blood should be used due to the potential of erroneous results. Notified Nurse RBV Raisin Washer [id number] 12/04/2024 10:[address] [facility] Blood WHOLE BLOOD / Unknown 12/04/2024 10:52 AM EDT 12/04/2024 10:[address] [facility] - 12/04/2024 10:57 AM EDT Raisin Washer ID is - [id number] us Timothy Bai MD POINT OF CARE TEST ORDERAB LES Final Result [facility] [address] [phone] * (ABNORMAL) CBC with automated diff (12/04/2024 8:15 AM EDT) WBC 4.1 4.0 - 10.0 K/ L 12/04/2024 9:[address] [facility] RBC 2.90(L) 3.93 - 5.22 M/ L 12/04/2024 9:[address] [facility] Hemoglobin 8.8(L) 11.2 - 15.7 GM/DL 12/04/2024 9:[address] [facility] Hematocrit 29.0(L) 34.1 - 44.9 % 12/04/2024 9:[address] [facility] MCV 100(H) 79 - 95 fL 12/04/2024 9:[address] [facility] MCH 30.3 25.6 - 32.2 pg 12/04/2024 9:[address] [facility] MCHC 30.3(L) 32.2 - 35.5 GM/DL 12/04/2024 9:[address] [facility] RDW 17.7(H) 11.7 - 14.4 % 12/04/2024 9:[address] [facility] Platelets 65(L) 140 - 375 K/CU MM 12/04/2024 9:[address] [facility] MPV 10.8 9.4 - 12.3 fL 12/04/2024 9:[address] [facility] % Neutros 79(H) 34 - 71 % 12/04/2024 9:[address] [facility] % Lymphs 12(L) 19 - 52 % 12/04/2024 9:[address] [facility] % Monos 9 5 - 13 % 12/04/2024 9:[address] [facility] % Eos 0(L) 1 - 6 % 12/04/2024 9:[address] [facility] % Baso 0 0 - 1 % 12/04/2024 9:[address] [facility] NRBC Absolute <0.01 0 - 0.012 K/ul 12/04/2024 9:[address] [facility] # Neutros 3.25 1.56 - 6.13 K/ L 12/04/2024 9:[address] [facility] # Lymphs 0.48(L) 1.18 - 3.74 K/ L 12/04/2024 9:[address] [facility] # Monos 0.35 0.24 - 0.86 K/ L 12/04/2024 9:[address] [facility] # Eos <0.03(L) 0.04 - 0.36 K/ L 12/04/2024 9:[address] [facility] # Baso <0.03 0.01 - 0.08 K/ L 12/04/2024 9:[address] [facility] Immature Granulocytes-Re lative 0.50(H) 0.01 - 0.43 % 12/04/2024 9:[address] [facility] # IG <0.03 0.00 - 0.03 K/uL 12/04/2024 9:[address] [facility] Blood Venipuncture / Unknown 12/04/2024 8:15 AM EDT 12/04/2024 8:32 AM EDT [facility] - 12/04/2024 9:56 AM EDT When [...] Bai MD LAB BLOOD ORDERABLES Final Result [facility] [address] [phone] * (ABNORMAL) Hemoglobin (12/04/2024 8:15 AM EDT) Pathologist [facility] Hemoglobin 9.0(L) 11.2 - 15.7 GM/DL 12/04/2024 8:[address] [facility] Blood Venipuncture / Unknown 12/04/2024 8:15 AM EDT 12/04/2024 8:32 AM EDT Timothy Bai MD LAB BLOOD ORDERABLES Final Result Performing Organization Address [facility] Co de Phone Number [facility] [address] [phone] * ANCA Vasculitis Profile(SENDOUT) (12/04/2024 8:15 AM EDT) Pathologist [facility] Myeloperoxidase (MPO) Ab, IgG 0 0 - 19 AU/mL 12/07/2024 8:52 AM EDT [facility] Comment: INTERPRETIVE INFORMATION: Myeloperoxidase Abs, IgG 19 AU/mL or Less ......... Negative 20-25 AU/mL .............. Equivocal 26 AU/mL or Greater ...... Positive Approximately 90% of patients with a P-ANCA pattern by IFA have antibodies specific for MPO. Serine Proteinase 3 (PR3) Ab, IgG 0 0 - 19 AU/mL 12/07/2024 8:52 AM EDT [facility] Comment: INTERPRETIVE INFORMATION: Serine Proteinase 3, IgG 19 AU/mL or Less ........ Negative 20-25 AU/mL ............. Equivocal 26 AU/mL or Greater ..... Positive Approximately 85% of patients with a C-ANCA pattern by IFA have antibodies specific for PR3. ANCA IFA Titer <1:20 <1:20 12/07/2024 8:52 AM EDT [facility] ANCA IFA Pattern None Detected None Detected 12/07/2024 8:52 AM EDT [facility] Comment: INTERPRETIVE INFORMATION: ANCA IFA Pattern Neutrophil Cytoplasmic Antibodies (C-ANCA = granular cytoplasmic staining, P-ANCA = perinuclear staining) are found in the serum of over 90 percent of patients with certain necrotizing systemic vasculitides, and usually in less than 5 percent of patients with collagen vascular disease or arthritis. Performed By: [facility] [employer] [facility] [address] [place] [address] Public Safety Director: Lalo Mortensen MD, PhD CLIA Number: [id number] Blood Venipuncture / Unknown 12/04/2024 8:15 AM EDT 12/04/2024 8:32 AM EDT us Hema Cervantes MD LAB BLOOD ORDERABLES Final Re sult [address] [address], [facility] [phone] * JEANA Reflexive Profile(SENDOUT) (12/04/2024 8:15 AM EDT) Anti-Nuclear Ab (JEANA), IgG by SHARON None Detected None Detected 12/06/2024 3:51 PM EDT [facility] Comment: No Anti-Nuclear Antibodies (JEANA) detected by SHARON. The Extractable Nuclear Antigen Antibodies (WIRE DRAWER, [place], SSA 52, SSA 60, Scleroderma, Lilia-1 and SSB) and Double Stranded DNA (dsDNA) Antibody, IgG will not be performed. If suspicion of connective tissue disease is strong, and JEANA is negative by SHARON, consider testing for JEANA by IFA ([id number]). INTERPRETIVE INFORMATION: Anti-Nuclear Antibodies (JEANA), IgG by SHARON Antinuclear Antibodies (JEANA), IgG by SHARON: JEANA specimens are screened using enzyme-linked immunosorbent assay (SHARON) methodology. All SHARON results reported as Detected are further tested by indirect fluorescent assay (IFA) using HEp-2 substrate with an IgG-specific conjugate. The JEANA SHARON screen is designed to detect antibodies against dsDNA, histones, SS-A (Ro), SS-B (La), Llanes, [place]/WIRE DRAWER, Scl-70, Lilia-1, centromeric proteins, other antigens extracted from the HEp-2 cell nucleus. JEANA SHARON assays have been reported to have lower sensitivities than JEANA IFA for systemic autoimmune rheumatic diseases (SARD). Negative results do not necessarily rule out SARD. Performed By: [facility] [address] [place] [address] Public Safety Director: Lalo Mortensen MD, PhD CLIA Number: [id number] Blood Venipuncture / Unknown 12/04/2024 8:15 AM EDT 12/04/2024 8:32 AM EDT us Hema Cervantes MD LAB BLOOD ORDERABLES Final Re sult [facility] [address] [place], [place] [id number], [facility] [phone] * XR chest AP portable (12/04/2024 6:49 [...] Transcribed by Regina Villasenor PA-C. Kirsty Tuttle GRAIN BUYER IMG DIAGNOSTIC IMAGING ORDER LONNY Final Result * (ABNORMAL) Blood gas, arterial (12/04/2024 6:34 AM EDT) pH, Arterial 7.29(L) 7.35 - 7.45 12/04/2024 7:[address] [facility] pCO2, Arterial 43 35 - 45 mm Hg 12/04/2024 7:[address] [facility] pO2, Arterial 106(H) 80 - 100 mm Hg 12/04/2024 7:[address] [facility] HCO3, Arterial 21 20 - 26 mmol/L 12/04/2024 7:[address] [facility] Base Excess, Arterial -5.2(L) -2.0 - 2.0 mmol/L 12/04/2024 7:[address] [facility] O2 Sat, Arterial 98.8 95.0 - 100.0 % 12/04/2024 7:[address] [facility] CTO2 ARTERIAL 11.9 mmol/L 12/04/2024 7:[address] [facility] THB ARTERIAL 8.6(L) 12.0 - 18.0 g/dL 12/04/2024 7:[address] [facility] COLLECTION SITE Right Brachial 12/04/2024 7:[address] [facility] Arterial Puncture Yes 12/04/2024 7:[address] [facility] Blood Gas O2 Delivery Device Cannula 12/04/2024 7:[address] [facility] Oxygen Flow Rate 3 12/05/19 7:[address] [facility] Blood Gas PT Temperature C 37.0 12/04/2024 7:[address] [facility] Sen's Test Not Applicable 12/05/19 7:[address] [facility] Critical Values Notification Critical Blood gas called to DAYANARA MATIAS . Results acknowledged/r ead back to [id number] and confirmed on 12/04/2024 07:09 12/04/2024 7:[address] [facility] ABG Number of Draw Attempts 1 12/04/2024 7:[address] [facility] FIO2 12/04/2024 7:[address] [facility] Blood Gas Temperature Corrected Results No No 12/04/2024 7:[address] [facility] Blood, Arterial 12/04/2024 6 :34 AM EDT 12/04/2024 7:10 AM EDT us Kirsty Tuttle APRN LAB BLOOD ORDERABLES Final R esult [facility] [address] [phone] * (ABNORMAL) Glucose, Nova Meter (12/04/2024 6:13 AM EDT) POC-GLUCOSE 155(H) 70 - 110 mg/dL 12/04/2024 6:[address] [facility] Comment: In the event of poor peripheral blood flow, venous or arterial blood should be used due to the potential of erroneous results. Protocols Followed Raisin Washer [id number] 12/04/2024 6:[address] [facility] Blood WHOLE BLOOD / Unknown 12/04/2024 6:13 AM EDT 12/04/2024 6:[address] [facility] - 12/04/2024 6:14 AM EDT Raisin Washer ID is - [id number] us Timothy Bai MD POINT OF CARE TEST ORDERAB LES Final Result [facility] [address] [phone] * (ABNORMAL) CBC with automated diff (12/04/2024 3:35 AM EDT) WBC 3.2(L) 4.0 - 10.0 K/ L 12/04/2024 3:[address] [facility] RBC 2.88(L) 3.93 - 5.22 M/ L 12/04/2024 3:[address] [facility] Hemoglobin 8.9(L) 11.2 - 15.7 GM/DL 12/04/2024 3:[address] [facility] Hematocrit 28.4(L) 34.1 - 44.9 % 12/04/2024 3:[address] [facility] MCV 99(H) 79 - 95 fL 12/04/2024 3:[address] [facility] MCH 30.9 25.6 - 32.2 pg 12/04/2024 3:[address] [facility] MCHC 31.3(L) 32.2 - 35.5 GM/DL 12/04/2024 3:[address] [facility] RDW 17.4(H) 11.7 - 14.4 % 12/04/2024 3:[address] [facility] Platelets 61(L) 140 - 375 K/CU MM 12/04/2024 3:[address] [facility] MPV 11.1 9.4 - 12.3 fL 12/04/2024 3:[address] [facility] % Neutros 80(H) 34 - 71 % 12/04/2024 3:[address] [facility] % Lymphs 12(L) 19 - 52 % 12/04/2024 3:[address] [facility] % Monos 8 5 - 13 % 12/04/2024 3:[address] [facility] % Eos 0(L) 1 - 6 % 12/04/2024 3:[address] [facility] % Baso 0 0 - 1 % 12/04/2024 3:[address] [facility] NRBC Absolute <0.01 0 - 0.012 K/ul 12/04/2024 3:[address] [facility] # Neutros 2.58 1.56 - 6.13 K/ L 12/04/2024 3:[address] [facility] # Lymphs 0.39(L) 1.18 - 3.74 K/ L 12/04/2024 3:[address] [facility] # Monos 0.25 0.24 - 0.86 K/ L 12/04/2024 3:[address] [facility] # Eos <0.03(L) 0.04 - 0.36 K/ L 12/04/2024 3:[address] [facility] # Baso <0.03 0.01 - 0.08 K/ L 12/04/2024 3:[address] [facility] Immature Granulocytes-Re lative 0.30 0.01 - 0.43 % 12/04/2024 3:[address] [facility] # IG <0.03 0.00 - 0.03 K/uL 12/04/2024 3:[address] [facility] Blood Venipuncture / Unknown 12/04/2024 3:35 AM EDT 12/04/2024 3:[address] [facility] - 12/04/2024 3:55 AM EDT [...] APRN LAB BLOOD ORDERABLES Final R esult [facility] [address] [phone] * Ammonia (12/04/2024 3:35 AM EDT) Ammonia 30 18 - 72 mol/L 12/04/2024 3:[address] [facility] Blood Venipuncture / Unknown 12/04/2024 3:35 AM EDT 12/04/2024 3:41 AM EDT us Timothy Bai MD LAB BLOOD ORDERABLES Final Result [facility] [address] [phone] * Phosphorus (12/04/2024 3:34 AM EDT) Phosphorus 4.2 2.5 - 4.5 mg/dL 12/04/2024 4:[address] [facility] Blood Venipuncture / Unknown 12/04/2024 3:34 AM EDT 12/04/2024 3:41 AM EDT us Kirsty Tuttle GRAIN BUYER LAB BLOOD ORDERABLES Final R esult [facility] [address] [phone] * (ABNORMAL) Comprehensive Metabolic Panel (12/04/2024 3:34 AM EDT) Sodium 143 136 - 145 meq/L 12/04/2024 4:[address] [facility] Potassium 3.7 3.4 - 5.1 meq/L 12/04/2024 4:[address] [facility] Chloride 115(H) 98 - 112 meq/L 12/04/2024 4:[address] [facility] CO2 20(L) 22 - 29 meq/L 12/04/2024 4:[address] [facility] Calcium 8.3(L) 8.4 - 10.2 mg/dL 12/04/2024 4:[address] [facility] Glucose 203(H) 82 - 115 mg/dL 12/04/2024 4:[address] [facility] BUN 58.6(H) 9.8 - 20.1 mg/dL 12/04/2024 4:[address] [facility] Creatinine 3.43(H) 0.57 - 1.11 mg/dL 12/04/2024 4:[address] [facility] BUN/Creatinine 17 8 - 20 12/04/2024 4:[address] [facility] eGFR (mL/min/1.73m2) 15(L) >=60 mL/min/1. 73m2 12/04/2024 4:[address] [facility] Albumin 4.2 3.5 - 5.0 g/dL 12/04/2024 4:[address] [facility] Alkaline Phosphatase 47 40 - 150 U/L 12/04/2024 4:[address] [facility] ALT 11 <=34 U/L 12/04/2024 4:[address] [facility] Comment: ALT2 reagent used for testing does not contain P5P supplementation and therefore may miss ALT elevations in patients with B6 deficiency. This population may be as high as 10% in the [place], with risk factors including malabsorption, drug interactions, and alcoholic hepatitis. AST 21 11 - 34 U/L 12/04/2024 4:[address] [facility] Comment: AST2 reagent used for testing does not contain P5P supplementation and therefore may miss AST elevations in patients with B6 deficiency. This population may be as high as 10% in the [place], with risk factors including malabsorption, drug interactions, and alcoholic hepatitis. Total Bilirubin 1.1 0.2 - 1.2 mg/dL 12/04/2024 4:[address] [facility] Protein, Total 6.7 6.4 - 8.3 g/dL 12/04/2024 4:[address] [facility] Globulin 2.5 2.5 - 4.1 g/dL 12/04/2024 4:04 AM [facility] Anion Gap 12 4 - 12 12/04/2024 4:04 AM [facility] A/G Ratio 1.7 0.7 - 1.9 12/04/2024 4:04 AM [facility] Osmolality Calc 307.2 mOsm/kg 4:04 AM [facility] Blood Venipuncture / Unknown 12/04/2024 3:34 AM EDT 12/04/2024 3:41 AM EDT us Timothy Bai MD LAB BLOOD ORDERABLES Final Result [facility] [address] [phone] * Magnesium (12/04/2024 3:34 AM EDT) Magnesium 2.5 1.6 - 2.6 mg/dL 12/04/2024 4:[address] [facility] Blood Venipuncture / Unknown 12/04/2024 3:34 AM EDT 12/04/2024 3:41 AM EDT us Timothy Bai MD LAB BLOOD ORDERABLES Final Result Performing Organization Address [facility] Co de Phone Number [facility] [address] [phone] * ECG 12 lead (12/04/2024 3:25 AM EDT) SYSTOLIC BLOOD PRESSURE (MCT) 165 mmHg GE MUSE DIASTOLIC BLOOD PRESSURE (MCT) 77 mmHg GE MUSE VENTRICULAR RATE EKG/MIN 80 BPM GE MUSE ATRIAL RATE (MCT) 80 BPM GE MUSE ID Interval 154 ms GE MUSE QRS-INTERVAL (MSEC) 76 ms GE MUSE QT Interval 380 ms GE MUSE QTC Interval 438 ms GE MUSE P [place] 47 degrees GE MUSE R AXIS (MCT) 44 degrees GE MUSE T Wave [place] -30 degrees GE MUSE [place] Diagnosis Normal sinus rhythm Low voltage QRS Nonspecific T wave abnormality Confirmed by DEYSI FOSS M.D. ([id number]) on 12/04/2024 11:05:22 AM GE MUSE 12/04/2024 3:25 AM EDT 12/04/2024 11:05 AM EDT us Deysi Foss MD ECG ORDERABLES Final Result Performing Organization Address City/[facility] Co de Phone Number GE MUSE * (ABNORMAL) Hemoglobin (12/04/2024 1:04 AM EDT) Hemoglobin 9.0(L) 11.2 - 15.7 GM/DL 12/04/2024 1:[address] [facility] Blood Venipuncture / Unknown 12/04/2024 1:04 AM EDT 12/04/2024 1:20 AM EDT us Timothy Bai MD LAB BLOOD ORDERABLES Final Result [facility] [address] [place] [address], [facility] [phone] * (ABNORMAL) Glucose, Nova Meter (12/03/2024 9:41 PM EDT) POC-GLUCOSE 146(H) 70 - 110 mg/dL 12/03/2024 9:[address] [facility] Comment: In the event of poor peripheral blood flow, venous or arterial blood should be used due to the potential of erroneous results. Protocols Followed Raisin Washer [id number] 12/03/2024 9:[address] [facility] Blood WHOLE BLOOD / Unknown 12/03/2024 9:41 PM EDT 12/03/2024 9:[address] [facility] - 12/03/2024 9:43 PM EDT Raisin Washer ID is - [id number] us Timothy Bai MD POINT OF CARE TEST ORDERAB LES Final Result [facility] [address] [place] [address], [facility] [phone] * (ABNORMAL) Glucose, Nova Meter (12/03/2024 5:19 PM EDT) POC-GLUCOSE 146(H) 70 - 110 mg/dL 12/03/2024 5:[address] [facility] Comment: In the event of poor peripheral blood flow, venous or arterial blood should be used due to the potential of erroneous results. Notified Nurse RBV Raisin Washer [phone] 12/03/2024 5:[address] [facility] Blood WHOLE BLOOD / Unknown 12/03/2024 5:19 PM EDT 12/03/2024 5:[address] [facility] - 12/03/2024 5:24 PM EDT Raisin Washer ID is - [id number] us Timothy Bai MD POINT OF CARE TEST ORDERAB LES Final Result [facility] [address] [place] [address], [facility] [phone] * XR chest AP portable (12/03/2024 4:45 [...] (MCT) -11 degrees GE MUSE T Wave [place] -58 degrees GE MUSE [place] Diagnosis Atrial fibrillation with rapid ventricular response Possible Anterolateral infarct , age undetermined Possible abberancy Confirmed by DEYSI FOSS M.D. ([id number]) on 12/03/2024 5:58:45 PM GE MUSE 12/03/2024 2:16 PM EDT 12/03/2024 5:58 PM EDT Timothy Bai MD ECG ORDERABLES Final Resu lt Performing Organization Address City/[facility]/ZIP Co de Phone Number GE MUSE * (ABNORMAL) Glucose, Nova Meter (12/03/2024 10:45 AM EDT) [facility] POC-GLUCOSE 156(H) 70 - 110 mg/dL 12/03/2024 10:[address] [facility] Comment: In the event of poor peripheral blood flow, venous or arterial blood should be used due to the potential of erroneous results. Notified Nurse RBV Raisin Washer [phone] 12/03/2024 10:[address] [facility] Blood WHOLE BLOOD / Unknown 12/03/2024 10:45 AM EDT 12/03/2024 10:[address] [facility] - 12/03/2024 10:49 AM EDT Raisin Washer ID is - [phone] Timothy Bai MD POINT OF CARE TEST ORDERAB LES Final Result Performing Organization Address [facility] Co de Phone Number [facility] [address] [phone] * ECG 12 lead (12/03/2024 10:39 AM EDT) [facility] VENTRICULAR RATE EKG/MIN 97 BPM GE MUSE ATRIAL RATE (MCT) 97 BPM GE MUSE ID Interval 150 ms GE MUSE QRS-INTERVAL (MSEC) 88 ms GE MUSE QT Interval 362 ms GE MUSE QTC Interval 459 ms GE MUSE P [place] 40 degrees GE MUSE R AXIS (MCT) 8 degrees GE MUSE T Wave [place] -8 degrees GE MUSE [place] Diagnosis Normal sinus rhythm Normal ECG No previous ECGs available Confirmed by DEYSI FOSS M.D. ([id number]) on 12/03/2024 5:59:01 PM GE MUSE 12/03/2024 10:3 9 AM EDT 12/03/2024 5:59 PM EDT us Timothy Bai MD ECG ORDERABLES Final Resu lt GE MUSE * (ABNORMAL) CBC with automated diff (12/03/2024 8:31 AM EDT) WBC 2.8(L) 4.0 - 10.0 K/ L 12/03/2024 9:[address] [facility] RBC 2.68(L) 3.93 - 5.22 M/ L 12/03/2024 9:[address] [facility] Hemoglobin 8.2(L) 11.2 - 15.7 GM/DL 12/03/2024 9:[address] [facility] Hematocrit 26.1(L) 34.1 - 44.9 % 12/03/2024 9:[address] [facility] MCV 97(H) 79 - 95 fL 12/03/2024 9:[address] [facility] MCH 30.6 25.6 - 32.2 pg 12/03/2024 9:[address] [facility] MCHC 31.4(L) 32.2 - 35.5 GM/DL 12/03/2024 9:[address] [facility] RDW 17.5(H) 11.7 - 14.4 % 12/03/2024 9:[address] [facility] Platelets 55(L) 140 - 375 K/CU MM 12/03/2024 9:[address] [facility] MPV 10.0 9.4 - 12.3 fL 12/03/2024 9:[address] [facility] % Neutros 79(H) 34 - 71 % 12/03/2024 9:[address] [facility] % Lymphs 13(L) 19 - 52 % 12/03/2024 9:[address] [facility] % Monos 6 5 - 13 % 12/03/2024 9:[address] [facility] % Eos 0(L) 1 - 6 % 12/03/2024 9:[address] [facility] % Baso 0 0 - 1 % 12/03/2024 9:[address] [facility] NRBC Absolute <0.01 0 - 0.012 K/ul 12/03/2024 9:[address] [facility] # Neutros 2.22 1.56 - 6.13 K/ L 12/03/2024 9:[address] [facility] # Lymphs 0.37(L) 1.18 - 3.74 K/ L 12/03/2024 9:[address] [facility] # Monos 0.18(L) 0.24 - 0.86 K/ L 12/03/2024 9:[address] [facility] # Eos <0.03(L) 0.04 - 0.36 K/ L 12/03/2024 9:[address] [facility] # Baso <0.03 0.01 - 0.08 K/ L 12/03/2024 9:[address] [facility] Immature Granulocytes-Re lative 0.70(H) 0.01 - 0.43 % 12/03/2024 9:[address] [facility] # IG <0.03 0.00 - 0.03 K/uL 12/03/2024 9:[address] [facility] Blood Venipuncture / Unknown 12/03/2024 8:31 AM EDT 12/03/2024 8:[address] [facility] - 12/03/2024 9:00 AM EDT [...] Bai MD LAB BLOOD ORDERABLES Final Result [facility] [address] [phone] * Creatine Kinase (CK) (12/03/2024 7:39 AM EDT) Total CK 55 29 - 168 U/L 12/03/2024 6:[address] [facility] Blood Venipuncture / Unknown 12/03/2024 7:39 AM EDT 12/03/2024 5:52 PM EDT us Hema Cervantes MD LAB BLOOD ORDERABLES Final Re sult [facility] [address] [phone] * Ammonia (12/03/2024 7:39 AM EDT) Pathologist [facility] Ammonia 36 18 - 72 mol/L 12/03/2024 7:[address] [facility] Blood Venipuncture / Unknown 12/03/2024 7:39 AM EDT 12/03/2024 7:[address] [facility] - 12/03/2024 7:56 AM EDT Specimen slightly hemolyzed us Timothy Bai MD LAB BLOOD ORDERABLES Final Result [facility] [address] [phone] * (ABNORMAL) Comprehensive Metabolic Panel (12/03/2024 7:39 AM EDT) Sodium 147(H) 136 - 145 meq/L 12/03/2024 8:[address] [facility] Potassium 4.1 3.4 - 5.1 meq/L 12/03/2024 8:[address] [facility] Chloride 119(H) 98 - 112 meq/L 12/03/2024 8:[address] [facility] CO2 20(L) 22 - 29 meq/L 12/03/2024 8:05 AM [facility] Calcium 8.3(L) 8.4 - 10.2 mg/dL 12/03/2024 8:05 AM [facility] Glucose 145(H) 82 - 115 mg/dL 12/03/2024 8:05 AM [facility] BUN 53.7(H) 9.8 - 20.1 mg/dL 12/03/2024 8:05 AM [facility] Creatinine 3.48(H) 0.57 - 1.11 mg/dL 12/03/2024 8:05 AM [facility] BUN/Creatinine 15 8 - 20 12/03/2024 8:05 AM [facility] eGFR (mL/min/1.73m2) 14(L) >=60 mL/min/1. 73m2 12/03/2024 8:05 AM [facility] Albumin 4.4 3.5 - 5.0 g/dL 12/03/2024 8:05 AM [facility] Alkaline Phosphatase 49 40 - 150 U/L 12/03/2024 8:05 AM [facility] ALT 7 <=34 U/L 12/03/2024 8:05 AM [facility] Comment: ALT2 reagent used for testing does not contain P5P supplementation and therefore may miss ALT elevations in patients with B6 deficiency. This population may be as high as 10% in the [place], with risk factors including malabsorption, drug interactions, and alcoholic hepatitis. AST 21 11 - 34 U/L 12/03/2024 8:05 AM [facility] Comment: AST2 reagent used for testing does not contain P5P supplementation and therefore may miss AST elevations in patients with B6 deficiency. This population may be as high as 10% in the [place], with risk factors including malabsorption, drug interactions, and alcoholic hepatitis. Total Bilirubin 1.1 0.2 - 1.2 mg/dL 12/03/2024 8:05 AM [facility] Protein, Total 6.8 6.4 - 8.3 g/dL 12/03/2024 8:05 AM [facility] Globulin 2.4(L) 2.5 - 4.1 g/dL 12/03/2024 8:[address] [facility] Anion Gap 12 4 - 12 12/03/2024 8:[address] [facility] A/G Ratio 1.8 0.7 - 1.9 12/03/2024 8:[address] [facility] Osmolality Calc 309.7 mOsm/kg 8:[address] [facility] Blood Venipuncture / Unknown 12/03/2024 7:39 AM EDT 12/03/2024 7:46 AM EDT Timothy Bai MD LAB BLOOD ORDERABLES Final Result [facility] [address] [phone] * Magnesium (12/03/2024 7:39 AM EDT) Magnesium 2.5 1.6 - 2.6 mg/dL 12/03/2024 8:[address] [facility] Blood Venipuncture / Unknown 12/03/2024 7:39 AM EDT 12/03/2024 7:46 AM EDT us Timothy Bai MD LAB BLOOD ORDERABLES Final Result [facility] [address] [phone] * (ABNORMAL) Glucose, Nova Meter (12/03/2024 5:13 AM EDT) POC-GLUCOSE 142(H) 70 - 110 mg/dL 12/03/2024 5:[address] [facility] Comment: In the event of poor peripheral blood flow, venous or arterial blood should be used due to the potential of erroneous results. Protocols Followed Raisin Washer [id number] 12/03/2024 5:[address] [facility] Blood WHOLE BLOOD / Unknown 12/03/2024 5:13 AM EDT 12/03/2024 5:[address] [facility] - 12/03/2024 5:15 AM EDT Raisin Washer ID is - [id number] us Timothy Bai MD POINT OF CARE TEST ORDERAB LES Final Result Performing Organization Address [facility] Co de Phone Number [facility] [address] [phone] * (ABNORMAL) Glucose, Nova Meter (12/03/2024 1:12 AM EDT) POC-GLUCOSE 168(H) 70 - 110 mg/dL 12/03/2024 1:[address] [facility] Comment: In the event of poor peripheral blood flow, venous or arterial blood should be used due to the potential of erroneous results. Protocols Followed Raisin Washer [id number] 12/03/2024 1:[address] [facility] Blood WHOLE BLOOD / Unknown 12/03/2024 1:12 AM EDT 12/03/2024 1:[address] [facility] - 12/03/2024 1:13 AM EDT Raisin Washer ID is - [id number] us Timothy Bai MD POINT OF CARE TEST ORDERAB LES Final Result Performing Organization Address [facility] Co de Phone Number [facility] [address] [place] [address], [facility] [phone] * (ABNORMAL) Glucose, Nova Meter (12/03/2024 1:10 AM EDT) POC-GLUCOSE 164(H) 70 - 110 mg/dL 12/03/2024 1:[address] [facility] Comment: In the event of poor peripheral blood flow, venous or arterial blood should be used due to the potential of erroneous results. Protocols Followed Raisin Washer [id number] 12/03/2024 1:[address] [facility] Blood WHOLE BLOOD / Unknown 12/03/2024 1:10 AM EDT 12/03/2024 1:[address] [facility] - 12/03/2024 1:12 AM EDT Raisin Washer ID is - [id number] us Timothy Bai MD POINT OF CARE TEST ORDERAB LES Final Result Performing Organization Address City/[facility]/ZIP Co de Phone Number [facility] [address] [phone] * (ABNORMAL) Hemoglobin (12/02/2024 11:06 PM EDT) Hemoglobin 8.9(L) 11.2 - 15.7 GM/DL 12/02/2024 11:[address] [facility] Blood Venipuncture / Unknown 12/02/2024 11:06 PM EDT 12/02/2024 11:15 PM EDT us Denilson Hodgson DO LAB BLOOD ORDERABLES Final Res ult Performing Organization Address [facility] Co de Phone Number [facility] [address] [place] [address], [facility] [phone] * (ABNORMAL) Glucose, Nova Meter (12/02/2024 8:06 PM EDT) [facility] POC-GLUCOSE 144(H) 70 - 110 mg/dL 12/02/2024 8:[address] [facility] Comment: In the event of poor peripheral blood flow, venous or arterial blood should be used due to the potential of erroneous results. Protocols Followed Raisin Washer [id number] 12/02/2024 8:[address] [facility] Blood WHOLE BLOOD / Unknown 12/02/2024 8:06 PM EDT 12/02/2024 8:[address] [facility] - 12/02/2024 8:08 PM EDT Raisin Washer ID is - [id number] us Timothy Bai MD POINT OF CARE TEST ORDERAB LES Final Result Performing Organization Address City/[facility]/ZIP Co de Phone Number [facility] [address] [phone] * (ABNORMAL) Hemoglobin (12/02/2024 6:03 PM EDT) [facility] Hemoglobin 9.1(L) 11.2 - 15.7 GM/DL 12/02/2024 6:[address] [facility] Blood Venipuncture / Unknown 12/02/2024 6:03 PM EDT 12/02/2024 6:19 PM EDT us Timothy Bai MD LAB BLOOD ORDERABLES Final Result [facility] [address] [place] [address], [facility] [phone] * (ABNORMAL) Glucose, Nova Meter (12/02/2024 5:18 PM EDT) [facility] POC-GLUCOSE 128(H) 70 - 110 mg/dL 12/02/2024 5:[address] [facility] Comment: In the event of poor peripheral blood flow, venous or arterial blood should be used due to the potential of erroneous results. Notified Nurse RBV Raisin Washer [phone] 12/02/2024 5:[address] [facility] Blood WHOLE BLOOD / Unknown 12/02/2024 5:18 PM EDT 12/02/2024 5:[address] [facility] - 12/02/2024 5:21 PM EDT Raisin Washer ID is - [id number] us Timothy Bai MD POINT OF CARE TEST ORDERAB LES Final Result [facility] [address] [place] [address], [facility] [phone] * Transfuse RBC (12/02/2024 5:03 PM EDT) Timothy Bai MD FS_MODEL_IP_BLOOD TRANSFUS ION ORDERABLES Final Result * Transfuse RBC: 1 Units (12/02/2024 5:03 PM EDT) Timothy Bia MD FS_MODEL_IP_BLOOD TRANSFUS ION ORDERABLES Final Result * (ABNORMAL) Glucose, Nova Meter (12/02/2024 12:51 PM EDT) POC-GLUCOSE 112(H) 70 - 110 mg/dL 12/02/2024 12:[address] [facility] Comment: In the event of poor peripheral blood flow, venous or arterial blood should be used due to the potential of erroneous results. Notified Nurse RBV Raisin Washer [id number] 12/02/2024 12:[address] [facility] Blood WHOLE BLOOD / Unknown 12/02/2024 12:51 PM EDT 12/02/2024 12:[address] [facility] - 12/02/2024 12:53 PM EDT Raisin Washer ID is - [id number] Timothy Bai MD POINT OF CARE TEST ORDERAB LES Final Result [facility] [address] [phone] * CT bone marrow biopsy (12/02/2024 12:24 [...] Pancytopenia. ATTENDING RADIOLOGIST: Dr. Haseeb Gil. PHYSICIAN BEARING MACHINE OPERATOR: Sandra Ramsey PA-C PROCEDURE: After informed [...] Pancytopenia. ATTENDING RADIOLOGIST: Dr. Haseeb Gil. PHYSICIAN BEARING MACHINE OPERATOR: Sandra Ramsey PA-C PROCEDURE: After informed [...] by Sandra Ramsey PA-C. Laura Batista MD [facility] ORDERABLES Final Result * [facility] BONE MARROW SMEAR, ASPIRATION, AND STAIN (12/02/2024 12:06 PM EDT) AP RESULT See Note: [facility] Comment: [facility] [address] [place] [address] or [phone] Joe Carlos M.D., Furniture Painter PATIENT NAME LABORATORY NO. MARY OLIVA. [id number] [facility] AGE SEX SSN CLIENT REF # [id number] F [id number] [address] [place] [address] REQUESTING Aleksandr ATTENDING Aleksandr. COPY TOLAURA PICHARDO DATE COLLECTED DATE RECEIVED DATE REPORTED 12/02/2024 12/02/2024 12/06/2024 ADDENDUM PRESENT ADDENDUM: Cytogenetics shows a normal female karyotype, 46,XX[20]. The original diagnosis remains unchanged. Verified by Heydi Mak M.D., MPH on 12/13/2024 Professional interpretation rendered by Heydi Mak M.D., MPH at [facility], [address] [place] [address]. DIAGNOSIS: PERIPHERAL SMEAR , BONE MARROW ASPIRATION [...] CD38, CD45, CD56, CD57, CD117, CD123, HLA-DR, [place], and Lambda. These tests use analyte specific [...] rendered by Heydi Mak M.D., MPH at [facility], [employer], [address] [place] [address]. GROSS DESCRIPTION: A. Received 1 peripheral blood smear slide for review. B. Received 5 bone marrow aspirate smear slides for review. 4 additional bone marrow aspirate smear slides made at [facility]. C. Received in a purple top tube [...] BY: Heydi Mak M.D., MPH CPT CODES: 41454, 2FLP, 19883, [id number], [id number], 43424, 58896, [id number] Bone Marrow BONE MARROW STRUCTURE / Unknown 12/02/2024 12:06 PM EDT us Laura Batista MD PATHOLOGY/CYTOLOGY ORDERABLES Edited Result - Final [facility] [address] * Prepare RBC: 1 Units (12/02/2024 9:36 AM EDT) Issue Date/Time [id number] [facility] BLOOD [facility] ([place]) Product Identification Red Blood Cells [facility] [place]) Product Code [id number] [facility] [place] Status Information Transfused [facility] [place] Unit Number [id number] [facility] BLOOD [facility] ([place]) Blood Type 5100 [facility] ([place] Cross Match Results Compatible [facility] ([place] us Timothy Bai MD FS_MODEL_IP_BLOOD BANK PRO DUCT ORDERABLES Final Result Performing Organization Address [facility]/ZIP Co de Phone Number [facility] ([place]) [address] [place] [address] * (ABNORMAL) Hemoglobin and hematocrit (12/02/2024 7:40 AM EDT) Hemoglobin 7.4(L) 11.2 - 15.7 GM/DL 12/02/2024 9:[address] [facility] Hematocrit 23.4(L) 34.1 - 44.9 % 12/02/2024 9:[address] [facility] Blood Venipuncture / Unknown 12/02/2024 7:40 AM EDT 12/02/2024 7:47 AM EDT us Timothy Bai MD LAB BLOOD ORDERABLES Final Result [facility] [address] [place] [address] * (ABNORMAL) Hemoglobin (12/02/2024 7:40 AM EDT) Hemoglobin 7.3(L) 11.2 - 15.7 GM/DL 12/02/2024 7:[address] [facility] Blood Venipuncture / Unknown 12/02/2024 7:40 AM EDT 12/02/2024 7:47 AM EDT Timothy Bai MD LAB BLOOD ORDERABLES Final Result [facility] [address] [phone] * (ABNORMAL) Glucose, Nova Meter (12/02/2024 5:04 AM EDT) Pathologist [facility] POC-GLUCOSE 115(H) 70 - 110 mg/dL 12/02/2024 5:[address] [facility] Comment: In the event of poor peripheral blood flow, venous or arterial blood should be used due to the potential of erroneous results. Notified Nurse RBV Raisin Washer [phone] 12/02/2024 5:[address] [facility] Blood WHOLE BLOOD / Unknown 12/02/2024 5:04 AM EDT 12/02/2024 5:[address] [facility] - 12/02/2024 5:06 AM EDT Raisin Washer ID is - [id number] us Timothy Bai MD POINT OF CARE TEST ORDERAB LES Final Result [facility] [address] [phone] * (ABNORMAL) Ammonia (12/02/2024 3:38 AM EDT) Ammonia 74(H) 18 - 72 mol/L 12/02/2024 5:[address] [facility] Blood Venipuncture / Unknown 12/02/2024 3:38 AM EDT 12/02/2024 4:[address] [facility] - 12/02/2024 5:20 AM EDT Specimen slightly hemolyzed us Timothy Bai MD LAB BLOOD ORDERABLES Final Result [facility] [address] [phone] * (ABNORMAL) Comprehensive Metabolic Panel (12/02/2024 3:38 AM EDT) Sodium 146(H) 136 - 145 meq/L 12/02/2024 5:[address] [facility] Potassium 4.2 3.4 - 5.1 meq/L 12/02/2024 5:[address] [facility] Chloride 118(H) 98 - 112 meq/L 12/02/2024 5:[address] [facility] CO2 19(L) 22 - 29 meq/L 12/02/2024 5:[address] [facility] Calcium 7.9(L) 8.4 - 10.2 mg/dL 12/02/2024 5:[address] [facility] Glucose 107 82 - 115 mg/dL 12/02/2024 5:[address] [facility] BUN 55.1(H) 9.8 - 20.1 mg/dL 12/02/2024 5:[address] [facility] Creatinine 3.55(H) 0.57 - 1.11 mg/dL 12/02/2024 5:[address] [facility] BUN/Creatinine 16 8 - 20 12/02/2024 5:[address] [facility] eGFR (mL/min/1.73m2) 14(L) >=60 mL/min/1. 73m2 12/02/2024 5:[address] [facility] Albumin 3.6 3.5 - 5.0 g/dL 12/02/2024 5:[address] [facility] Alkaline Phosphatase 49 40 - 150 U/L 12/02/2024 5:[address] [facility] ALT 8 <=34 U/L 12/02/2024 5:[address] [facility] Comment: ALT2 reagent used for testing does not contain P5P supplementation and therefore may miss ALT elevations in patients with B6 deficiency. This population may be as high as 10% in the [place], with risk factors including malabsorption, drug interactions, and alcoholic hepatitis. AST 32 11 - 34 U/L 12/02/2024 5:[address] [facility] Comment: AST2 reagent used for testing does not contain P5P supplementation and therefore may miss AST elevations in patients with B6 deficiency. This population may be as high as 10% in the [place], with risk factors including malabsorption, drug interactions, and alcoholic hepatitis. Total Bilirubin 0.9 0.2 - 1.2 mg/dL 12/02/2024 5:[address] [facility] Protein, Total 6.1(L) 6.4 - 8.3 g/dL 12/02/2024 5:[address] [facility] Globulin 2.5 2.5 - 4.1 g/dL 12/02/2024 5:[address] [facility] Anion Gap 13(H) 4 - 12 12/02/2024 5:[address] [facility] A/G Ratio 1.4 0.7 - 1.9 12/02/2024 5:[address] [facility] Osmolality Calc 306.2 mOsm/kg 5:[address] [facility] Blood Venipuncture / Unknown 12/02/2024 3:38 AM EDT 12/02/2024 4:[address] [facility] - 12/02/2024 5:30 AM EDT Specimen slightly hemolyzed us Timothy Bai MD LAB BLOOD ORDERABLES Final Result [facility] [address] [phone] * Magnesium (12/02/2024 3:38 AM EDT) [facility] Magnesium 2.5 1.6 - 2.6 mg/dL 12/02/2024 5:[address] [facility] Blood Venipuncture / Unknown 12/02/2024 3:38 AM EDT 12/02/2024 4:[address] [facility] - 12/02/2024 5:30 AM EDT Specimen slightly hemolyzed us Timothy Bai MD LAB BLOOD ORDERABLES Final Result [facility] [address] [phone] * (ABNORMAL) CBC - Hemogram (SJ-BKR) (12/02/2024 3:38 AM EDT) [facility] WBC 3.0(L) 4.0 - 10.0 K/ L 12/02/2024 5:[address] [facility] RBC 2.43(L) 3.93 - 5.22 M/ L 12/02/2024 5:[address] [facility] Hemoglobin 7.6(L) 11.2 - 15.7 GM/DL 12/02/2024 5:[address] [facility] Hematocrit 24.2(L) 34.1 - 44.9 % 12/02/2024 5:[address] [facility] MCV 100(H) 79 - 95 fL 12/02/2024 5:[address] [facility] MCH 31.3 25.6 - 32.2 pg 12/02/2024 5:[address] [facility] MCHC 31.4(L) 32.2 - 35.5 GM/DL 12/02/2024 5:[address] [facility] RDW 17.1(H) 11.7 - 14.4 % 12/02/2024 5:[address] [facility] Platelets 57(L) 140 - 375 K/CU MM 12/02/2024 5:[address] [facility] MPV 10.5 9.4 - 12.3 fL 12/02/2024 5:[address] [facility] Blood Venipuncture / Unknown 12/02/2024 3:38 AM EDT 12/02/2024 4:47 AM EDT Timothy Bai MD LAB BLOOD ORDERABLES Final Result Performing Organization Address [facility]/ZIP Co de Phone Number [facility] [address] [phone] * (ABNORMAL) Hemoglobin (12/02/2024 12:04 AM EDT) Hemoglobin 7.7(L) 11.2 - 15.7 GM/DL 12/02/2024 12:[address] [facility] Blood Venipuncture / Unknown 12/02/2024 12:04 AM EDT 12/02/2024 12:16 AM EDT Timothy Bai MD LAB BLOOD ORDERABLES Final Result Performing Organization Address [facility] [facility] Co de Phone Number [facility] [address] [phone] * (ABNORMAL) Glucose, Nova Meter (12/01/2024 7:34 PM EDT) POC-GLUCOSE 128(H) 70 - 110 mg/dL 12/01/2024 7:[address] [facility] Comment: In the event of poor peripheral blood flow, venous or arterial blood should be used due to the potential of erroneous results. Notified Nurse RBV Raisin Washer [phone] 12/01/2024 7:[address] [facility] Blood WHOLE BLOOD / Unknown 12/01/2024 7:34 PM EDT 12/01/2024 7:[address] [facility] - 12/01/2024 7:35 PM EDT Raisin Washer ID is - [id number] us Timothy Bai MD POINT OF CARE TEST ORDERAB LES Final Result [facility] [address] [phone] * (ABNORMAL) Glucose, Nova Meter (12/01/2024 4:25 PM EDT) POC-GLUCOSE 115(H) 70 - 110 mg/dL 12/01/2024 4:[address] [facility] Comment: In the event of poor peripheral blood flow, venous or arterial blood should be used due to the potential of erroneous results. Notified Nurse RBV Raisin Washer [phone] 12/01/2024 4:[address] [facility] Blood WHOLE BLOOD / Unknown 12/01/2024 4:25 PM EDT 12/01/2024 4:[address] [facility] - 12/01/2024 4:26 PM EDT Raisin Washer ID is - [phone] us Timothy Bai MD POINT OF CARE TEST ORDERAB LES Final Result Performing Organization Address City/[facility]/ZIP Co de Phone Number [facility] [address] [phone] * (ABNORMAL) Hemoglobin (12/01/2024 3:33 PM EDT) [facility] Hemoglobin 8.0(L) 11.2 - 15.7 GM/DL 12/01/2024 4:[address] [facility] Blood Venipuncture / Unknown 12/01/2024 3:33 PM EDT 12/01/2024 4:00 PM EDT Timothy Bai MD LAB BLOOD ORDERABLES Final Result [facility] 1 [place] [address], [facility] [phone] * Glucose, Nova Meter (12/01/2024 10:32 AM EDT) [facility] POC-GLUCOSE 100 70 - 110 mg/dL 12/01/2024 10:[address] [facility] Comment: In the event of poor peripheral blood flow, venous or arterial blood should be used due to the potential of erroneous results. Notified Nurse RBV Raisin Washer [phone] 12/01/2024 10:[address] [facility] Blood WHOLE BLOOD / Unknown 12/01/2024 10:32 AM EDT 12/01/2024 10:33 AM EDT [facility] - 12/01/2024 10:33 AM EDT Raisin Washer ID is - [id number] us Timothy Bai MD POINT OF CARE TEST ORDERAB LES Final Result [facility] [address] [phone] * Transfuse RBC (12/01/2024 9:18 AM EDT) us Denilson Hodgson DO FS_MODEL_IP_BLOOD TRANSFUSION ORDERABLES Final Result * Transfuse RBC: 1 Units (12/01/2024 9:18 AM EDT) us Denilson Hodgson DO FS_MODEL_IP_BLOOD TRANSFUSION ORDERABLES Final Result * Glucose, Nova Meter (12/01/2024 8:12 AM EDT) [facility] Signature POC-GLUCOSE 103 70 - 110 mg/dL 12/01/2024 8:[address] [facility] Comment: In the event of poor peripheral blood flow, venous or arterial blood should be used due to the potential of erroneous results. Protocols Followed Raisin Washer [id number] 12/01/2024 8:[address] [facility] Blood WHOLE BLOOD / Unknown 12/01/2024 8:12 AM EDT 12/01/2024 8:14 AM EDT [facility] - 12/01/2024 8:14 AM EDT Raisin Washer ID is - [phone] us Timothy Bai MD POINT OF CARE TEST ORDERAB LES Final Result Performing Organization Address [facility] Co de Phone Number [facility] [address] [phone] * Type and Screen (12/01/2024 7:08 AM EDT) ABO/Rh O Positive 12/01/2024 4:53 AM EDT [facility] ([place]) Antibody Screen Negative 12/01/2024 4:53 AM EDT [facility] ([place] HISTCHK HIST CHECK PERFORMED 12/01/2024 4:53 AM EDT [facility] [place] Blood Venipuncture / Unknown 12/01/2024 7:08 AM EDT 12/01/2024 7:15 AM EDT us Denilson Hodgson DO [facility] TEST ORDERABLES Final Result Performing Organization Address [facility] Number [facility] ([place]) [address] [place] [address] * Glucose, Nova Meter (12/01/2024 5:37 AM EDT) [facility] POC-GLUCOSE 107 70 - 110 mg/dL 12/01/2024 5:[address] [facility] Comment: In the event of poor peripheral blood flow, venous or arterial blood should be used due to the potential of erroneous results. Notified Nurse RBV Raisin Washer [phone] 12/01/2024 5:[address] [facility] Blood WHOLE BLOOD / Unknown 12/01/2024 5:37 AM EDT 12/01/2024 5:[address] [facility] - 12/01/2024 5:39 AM EDT Raisin Washer ID is - [id number] us Timothy Bai MD POINT OF CARE TEST ORDERAB LES Final Result Performing Organization Address [facility] Co de Phone Number [facility] [address] [phone] * Prepare RBC: 1 Units (12/01/2024 4:53 AM EDT) Issue Date/Time [id number] [facility] [place] Product Identification Red Blood Cells [facility] [place]) Product Code [id number] [facility] [place] Status Information Transfused [facility] [place] Unit Number [id number] [facility] ([place]) Blood Type 5100 [facility] [place] Cross Match Results Compatible [facility] ([place] us Denilson Hodgson DO FS_MODEL_IP_BLOOD BANK PRODUCT ORDERABLES Final Result [facility] ([place] 1 [facility] [place] [address], [facility] [phone] * ABO/RH Confirmation/Retype (12/01/2024 4:06 AM EDT) RETYPE O Positive 12/01/2024 5:15 AM EDT [facility] ([place]) Comment:[id number] Blood Venipuncture / Unknown 12/01/2024 4:06 AM EDT 12/01/2024 5:14 AM EDT Timothy Bai MD [facility] TEST ORDERA BLES Final Result [facility] ([place] 1 [facility] [place] [address], [facility] [phone] * (ABNORMAL) Ammonia (12/01/2024 4:06 AM EDT) Ammonia 75(H) 18 - 72 mol/L 12/01/2024 4:[address] [facility] Blood Venipuncture / Unknown 12/01/2024 4:06 AM EDT 12/01/2024 4:13 AM EDT us Timothy Bai MD LAB BLOOD ORDERABLES Final Result [facility] [address] [phone] * (ABNORMAL) CBC - Hemogram (SJ-BKR) (12/01/2024 4:06 AM EDT) WBC 1.7(LL) 4.0 - 10.0 K/ L 12/01/2024 4:[address] [facility] RBC 2.15(L) 3.93 - 5.22 M/ L 12/01/2024 4:[address] [facility] Hemoglobin 6.7(L) 11.2 - 15.7 GM/DL 12/01/2024 4:[address] [facility] Hematocrit 21.6(L) 34.1 - 44.9 % 12/01/2024 4:[address] [facility] MCV 101(H) 79 - 95 fL 12/01/2024 4:[address] [facility] MCH 31.2 25.6 - 32.2 pg 12/01/2024 4:[address] [facility] MCHC 31.0(L) 32.2 - 35.5 GM/DL 12/01/2024 4:[address] [facility] RDW 16.2(H) 11.7 - 14.4 % 12/01/2024 4:[address] [facility] Platelets 54(L) 140 - 375 K/CU MM 12/01/2024 4:[address] [facility] MPV 10.6 9.4 - 12.3 fL 12/01/2024 4:[address] [facility] Blood Venipuncture / Unknown 12/01/2024 4:06 AM EDT 12/01/2024 4:12 AM EDT us Timothy Bai MD LAB BLOOD ORDERABLES Final Result [facility] [address] [phone] * (ABNORMAL) Comprehensive Metabolic Panel (12/01/2024 4:05 AM EDT) Sodium 145 136 - 145 meq/L 12/01/2024 5:[address] [facility] Potassium 4.2 3.4 - 5.1 meq/L 12/01/2024 5:[address] [facility] Chloride 116(H) 98 - 112 meq/L 12/01/2024 5:01 AM [facility] CO2 20(L) 22 - 29 meq/L 12/01/2024 5:01 AM [facility] Calcium 8.0(L) 8.4 - 10.2 mg/dL 12/01/2024 5:01 AM [facility] Glucose 120(H) 82 - 115 mg/dL 12/01/2024 5:01 AM [facility] BUN 68.3(H) 9.8 - 20.1 mg/dL 12/01/2024 5:01 AM [facility] Creatinine 4.13(H) 0.57 - 1.11 mg/dL 12/01/2024 5:01 AM [facility] BUN/Creatinine 17 8 - 20 12/01/2024 5:01 AM [facility] eGFR (mL/min/1.73m2) 12(L) >=60 mL/min/1. 73m2 12/01/2024 5:01 AM [facility] Albumin 2.8(L) 3.5 - 5.0 g/dL 12/01/2024 5:01 AM [facility] Alkaline Phosphatase 61 40 - 150 U/L 12/01/2024 5:01 AM [facility] ALT 15 <=34 U/L 12/01/2024 5:01 AM [facility] Comment: ALT2 reagent used for testing does not contain P5P supplementation and therefore may miss ALT elevations in patients with B6 deficiency. This population may be as high as 10% in the [place], with risk factors including malabsorption, drug interactions, and alcoholic hepatitis. AST 26 11 - 34 U/L 12/01/2024 5:[address] [facility] Comment: AST2 reagent used for testing does not contain P5P supplementation and therefore may miss AST elevations in patients with B6 deficiency. This population may be as high as 10% in the [place], with risk factors including malabsorption, drug interactions, and alcoholic hepatitis. Total Bilirubin 0.5 0.2 - 1.2 mg/dL 12/01/2024 5:[address] [facility] Protein, Total 5.7(L) 6.4 - 8.3 g/dL 12/01/2024 5:[address] [facility] Globulin 2.9 2.5 - 4.1 g/dL 12/01/2024 5:[address] [facility] Anion Gap 13(H) 4 - 12 12/01/2024 5:[address] [facility] A/G Ratio 1.0 0.7 - 1.9 12/01/2024 5:[address] [facility] Osmolality Calc 309.8 mOsm/kg 5:[address] [facility] Blood Venipuncture / Unknown 12/01/2024 4:05 AM EDT 12/01/2024 4:13 AM EDT Timothy Bai MD LAB BLOOD ORDERABLES Final Result Performing Organization Address City/State/[facility] Co de Phone Number [facility] [address] [phone] * (ABNORMAL) Magnesium (12/01/2024 4:05 AM EDT) Magnesium 2.7(H) 1.6 - 2.6 mg/dL 12/01/2024 4:[address] [facility] Blood Venipuncture / Unknown 12/01/2024 4:05 AM EDT 12/01/2024 4:13 AM EDT Timothy Bai MD LAB BLOOD ORDERABLES Final Result [facility] 1 [place] [address], [facility] [phone] * Glucose, Nova Meter (11/30/2024 7:38 PM EDT) POC-GLUCOSE 106 70 - 110 mg/dL 11/30/2024 7:[address] [facility] Comment: In the event of poor peripheral blood flow, venous or arterial blood should be used due to the potential of erroneous results. Notified Nurse RBV Raisin Washer [phone] 11/30/2024 7:[address] [facility] Blood WHOLE BLOOD / Unknown 11/30/2024 7:38 PM EDT 11/30/2024 7:39 PM EDT [facility] - 11/30/2024 7:39 PM EDT Raisin Washer ID is - [id number] us Timothy Bai MD POINT OF CARE TEST ORDERAB LES Final Result [facility] 1 [place] [address], [facility] [phone] * Glucose, Nova Meter (11/30/2024 6:22 PM EDT) [facility] POC-GLUCOSE 107 70 - 110 mg/dL 11/30/2024 6:[address] [facility] Comment:In the event of poor peripheral blood flow, venous or arterial blood should be used due to the potential of erroneous results. Raisin Washer [phone] 11/30/2024 6:[address] [facility] Blood WHOLE BLOOD / Unknown 11/30/2024 6:22 PM EDT 11/30/2024 6:25 PM EDT [facility] - 11/30/2024 6:25 PM EDT Raisin Washer ID is - [id number] us Timothy Bai MD POINT OF CARE TEST ORDERAB LES Final Result [facility] 1 [place] [address], [facility] [phone] * Ultrasound renal limited (11/30/2024 4:19 PM [...] Ronnell Tom MD us Huey Hurtado MD Fady US ORDERABLES Final Result * Ultrasound liver [...] Ascites ATTENDING PHYSICIAN: Dr. Haseeb Gil PHYSICIAN BEARING MACHINE OPERATOR: Gabriel Velasco PA-C FINDINGS: After informed [...] Ascites ATTENDING PHYSICIAN: Dr. Haseeb Gil PHYSICIAN BEARING MACHINE OPERATOR: Gabriel Velasco PA-C FINDINGS: After informed [...] Gabriel Velasco PA-C. us Huey Hurtado MD G US ORDERABLES Final Result * Protein, body fluid (11/30/2024 4:03 PM EDT) Protein, Fluid 1.9 See Comment g/dL 12/01/2024 7:[address] [facility] BODY FLUID TYPE Peritoneal 12/01/2024 7:[address] [facility] Body Fluid PERITONEAL FLUID / Unknown 11/30/2024 4:03 PM EDT 12/01/2024 6:[address] [facility] - 12/01/2024 7:10 AM EDT This test has been modified from the fishing rod assembler's instructions and its performance characteristics were determined by the laboratory. The reference intervals and other method performance specifications are unavailable for this test. It is recommended to interpret body fluid concentrations in comparison with the corresponding serum or plasma concentrations and to integrate test results into the clinical context. Timothy Bai MD BODY FLUIDS AND STOOLS ORD ERABLES Final Result Performing Organization Address [facility] de Phone Number [facility] [address] [phone] * Glucose, body fluid (11/30/2024 4:03 PM EDT) Glucose, Body Fluid 107 See Comment mg/dL 12/01/2024 7:[address] [facility] BODY FLUID TYPE Peritoneal 12/01/2024 7:[address] [facility] Body Fluid PERITONEAL FLUID / Unknown 11/30/2024 4:03 PM EDT 12/01/2024 6:[address] [facility] - 12/01/2024 7:10 AM EDT This test has been modified from the fishing rod assembler's instructions and its performance characteristics were determined [...] ORD ERABLES Final Result Performing Organization Address [facility] de Phone Number [facility] [address] [phone] * Body Fluid/CSF - Path Review (SJ) (11/30/2024 4:03 PM EDT) SENT TO PATHOLOGY FOR REVIEW Yes 12/03/2024 6:[address] [facility] Scan Result Mesothelial cells. MD German 12/02/2024 12/03/2024 6:[address] [facility] Peritoneal Fluid BODY FLUID / Unknown 11/30/2024 4:03 PM EDT 11/30/2024 4:33 PM EDT us Huey Hurtado MD BODY FLUIDS AND STOOLS ORDERABLE S Final Result [facility] [address] [phone] * DIFFERENTIAL, BODY FLUID (11/30/2024 4:03 PM EDT) Neutrophils Fluid 5 0 - 25 % 025 8:[address] [facility] Lymphocytes Fluid 46 % 025 8:[address] [facility] Unidentified Mononuclear Cells BF 49 0 - 0 % 11/30/2024 8:[address] [facility] Peritoneal Fluid BODY FLUID / Unknown 11/30/2024 4:03 PM EDT 11/30/2024 4:33 PM EDT us Huey Hurtado MD BODY FLUIDS AND STOOLS ORDERABLE S Final Result [facility] [address] [phone] * [facility] Non-Tube Wrapper Cytology (11/30/2024 4:03 PM EDT) AP RESULT See Note: [facility] Comment: [facility] [address] [place] [address] or [phone] Joe Carlos M.D., Furniture Painter PATIENT NAME LABORATORY NO. MARY OLIVA. [id number] AGE SEX SSN CLIENT REF # [facility] 64 1960 F [id number] [facility] REQUESTING Aleksandr ATTENDING [place] [address] HUEY HURTADO DATE COLLECTED DATE RECEIVED DATE REPORTED 11/30/2024 12/01/2024 12/02/2024 DIAGNOSIS: PERITONEAL FLUID: Negative for malignant cells. MICROSCOPIC DESCRIPTION: Scattered mesothelial cells and chronic inflammatory cells are present. Professional interpretation rendered by John Sanchez M.D., F.C.A.P. at [employer] [facility], [address] [place] [address]. CLINICAL HISTORY: Melena Anasarca Acute renal failure SPECIMENS SUBMITTED: PERITONEAL FLUID GROSS SPECIMEN DESCRIPTION: 40 ccs of hazy, light yellow fluid, scant sediment, received in fixative ThinPrep slides prepared. Cell block has been examined. STOVE MOUNTER: SVITLANA HERNANDEZ (ASCP) REVIEWED, DIAGNOSED AND ELECTRONICALLY SIGNED BY: John Sanchez M.D., F.C.A.P. CPT CODES: [id number], [id number] Peritoneal Fluid BODY FLUID / Unknown 11/30/2024 4:03 PM EDT Huey Hurtado MD PATHOLOGY/CYTOLOGY ORDERABLES Fi nal Result [facility] [address] [place] [address] * Anaerobic Culture (11/30/2024 4:03 PM EDT) Result No Anaerobic growth 12/05/2024 6:[address] [facility] Peritoneal Fluid BODY FLUID / Unknown 11/30/2024 4:03 PM EDT 11/30/2024 4:[address] [facility] - 12/05/2024 6:34 AM EDT Specimen Description: peritoneal fluid us Huey Hurtado MD MICROBIOLOGY - GENERAL ORDERABLE S Final Result Performing Organization Address [facility]/State/ZIP Co de Phone Number [facility] [address] [phone] * Body Fluid Culture + Gram Stain (11/30/2024 4:03 PM EDT) Result No growth 12/03/2024 9:[address] [facility] Gram Stain Result No organisms seen 12/03/2024 9:[address] [facility] Gram Stain Result No cells seen 12/03/2024 9:[address] [facility] Peritoneal Fluid BODY FLUID / Unknown 11/30/2024 4:03 PM EDT 11/30/2024 4:[address] [facility] - 12/03/2024 9:07 AM EDT Specimen Description: peritoneal fluid us Huey Hurtado MD MICROBIOLOGY - GENERAL ORDERABLE S Final Result Performing Organization Address [facility]/ZIP Co de Phone Number [facility] [address] [phone] * (ABNORMAL) Body fluid cell count with differential (11/30/2024 4:03 PM EDT) Appearance Cloudy(A) Clear 11/30/2024 8:[address] [facility] Color Yellow 11/30/2024 8:[address] [facility] BODY FLUID TYPE Peritoneal 11/30/2024 8:[address] [facility] Auto WBC/Nucleated Cells BF 85 /uL 11/30/2024 8:[address] [facility] Comment: Please refer to specific WBC/Nucleated Cell Count Body Fluid reference ranges below: For Pleural: 0-1000 Peritoneal: 0-1000 Pericardial:0-1000 Synovial: 0-200 Auto RBC BF <3,000 /uL 11/30/2024 8:[address] [facility] Comment: Please refer to specific RBC Cell Count Body Fluid reference ranges below: Pleural: 0-10,000 Peritoneal: 0-10,000 Pericardial:0-10,000 Synovial:0-30 Peritoneal Fluid BODY FLUID / Unknown 11/30/2024 4:03 PM EDT 11/30/2024 4:33 PM EDT [facility] - 11/30/2024 8:49 PM EDT There is normally no readily obtainable pleural, peritoneal and pericardial fluid, hence normal elements for these potential fluids are not defined. us Huey Hurtado MD BODY FLUIDS AND STOOLS ORDERABLE S Final Result Performing Organization Address [facility] Co de Phone Number [facility] [address] [phone] * Lactate dehydrogenase (LDH), body fluid (11/30/2024 4:03 PM EDT) LDH, Fluid 71 See Comment U/L 11/30/2024 6:[address] [facility] BODY FLUID TYPE Peritoneal 11/30/2024 6:[address] [facility] Peritoneal Fluid BODY FLUID / Unknown 11/30/2024 4:03 PM EDT 11/30/2024 4:33 PM EDT [facility] - 11/30/2024 6:19 PM EDT This test has been modified from the fishing rod assembler's instructions and its performance characteristics were determined [...] ORDERABLE S Final Result Performing Organization Address [facility] Co de Phone Number [facility] [address] [place] [address], [facility] [phone] * Protein / creatinine ratio, urine (11/30/2024 11:35 AM EDT) Creatinine, Ur 62.00 47.00 - 110.00 mg/dL 11/30/2024 12:36 PM EDT [facility] Protein Creatinine Ratio 0.19 <=0.20 11/30/2024 12:[address] [facility] Protein, Urine 12 1 - 14 mg/dL 11/30/2024 12:[address] [facility] Urine 11/30/2024 11:3 5 AM EDT 11/30/2024 12:15 PM EDT Hill Boo MD URINE ORDERABLES Final Result Performing Organization Address City/[facility]/ZIP Co de Phone Number [facility] [address] [phone] * Urea Nitrogen, random urine (11/30/2024 11:35 AM EDT) Urea Nitrogen, Ur 305 mg/dL 11/30/2024 12:[address] [facility] Comment:Reference Range not established Urine 11/30/2024 11:3 5 AM EDT 11/30/2024 12:15 PM EDT Hill Boo MD URINE ORDERABLES Final Result Performing Organization Address [facility] Co de Phone Number [facility] [address] [phone] * Sodium, random urine (11/30/2024 11:35 AM EDT) Sodium Urine 83 See Comment meq/L 11/30/2024 12:[address] [facility] Comment:Reference Range not established Urine 11/30/2024 11:3 5 AM EDT 11/30/2024 12:15 PM EDT Hill Boo MD URINE ORDERABLES Final Result Performing Organization Address [facility] Co de Phone Number [facility] [address] [phone] * (ABNORMAL) Urinalysis Microscopic Only (11/30/2024 11:35 AM EDT) WBC, UA 21-50(A) None Seen /HPF 11/30/2024 12:[address] [facility] RBC, UA 0-2(A) None Seen /HPF 11/30/2024 12:[address] [facility] Bacteria, UA 1+(A) None Seen, Trace 11/30/2024 12:[address] [facility] Mucus 1+(A) None Seen 11/30/2024 12:[address] [facility] SQUAMOUS EPITHELIAL 3-5(A) None Seen /HPF 11/30/2024 12:[address] [facility] HYALINE CASTS 21-50(A) None Seen /LPF 11/30/2024 12:[address] [facility] Urine URINE SPECIMEN COLLECTION, CLEAN CATCH / Unknown 11/30/2024 11:35 AM EDT 11/30/2024 11:41 AM EDT us Destiney Llanes APRN URINE ORDERABLES Final Resu lt [facility] [address] [phone] * Urine Culture (11/30/2024 11:35 AM EDT) Result Recollect Specimen - 3 or more organisms suggests contamination 12/01/2024 6:[address] [facility] Urine URINE SPECIMEN COLLECTION, CLEAN CATCH / Unknown 11/30/2024 11:35 AM EDT 11/30/2024 11:41 AM EDT us Destiney Llanes APRN MICROBIOLOGY - GENERAL ORDE RABLES Final Result Performing Organization Address City/[facility]/ZIP Co de Phone Number [facility] [address] [place] [address] * (ABNORMAL) Urinalysis, Reflex Microscopic and Culture If Indicated (11/30/2024 11:35 AM EDT) Color, UA Light Yellow 11/30/2024 12:[address] [facility] Clarity, UA Turbid(A) Clear 11/30/2024 12:[address] [facility] Specific [place], UA 1.011 1.005 - 1.030 11/30/2024 12:[address] [facility] pH, UA 5.0(L) 6.0 - 8.0 11/30/2024 12:[address] [facility] Leukocytes, UA 500 Félix/uL(A) Negative 11/30/2024 12:[address] [facility] Nitrite, UA Negative Negative 11/30/2024 12:[address] [facility] Protein, UA Negative Negative 11/30/2024 12:[address] [facility] Glucose, UA Normal Normal 11/30/2024 12:[address] [facility] Ketones, UA Negative Negative 11/30/2024 12:[address] [facility] Bilirubin, UA Negative Negative 11/30/2024 12:[address] [facility] Blood, UA Negative Negative 11/30/2024 12:[address] [facility] Urobilinogen, UA Normal Normal 11/30/2024 12:[address] [facility] Specimen Source Urine, Clean Catch 11/30/2024 12:[address] [facility] Urine URINE SPECIMEN COLLECTION, CLEAN CATCH / Unknown 11/30/2024 11:35 AM EDT 11/30/2024 11:41 AM EDT us Destiney Llanes GRAIN BUYER URINE ORDERABLES Final Resu lt [facility] [address] [phone] * XR chest AP portable (11/30/2024 11:29 [...] by Marielos Sotelo PA-C. Destiney Llanes APRN [facility] Final Result * (ABNORMAL) Monoclonal Protein [...] - 1.51 g/dL 12/03/2024 12:57 PM EDT [facility] Immunofixation MAEGAN Done 12/03/2024 12:57 PM EDT [facility] Immunoglobulin G 1484 768 - 1632 mg/dL 12/03/2024 12:57 PM EDT [facility] Immunoglobulin A 686(H) 68 - 408 mg/dL 12/03/2024 12:57 PM EDT [facility] Immunoglobulin M 126 35 - 263 mg/dL 12/03/2024 12:57 PM EDT [facility] Monoclonal Protein Not Applicable <=0.00 g/dL 12/03/2024 12:57 PM EDT [facility] [place] Qnt Free Light Chains 173.10(H) 3.30 - 19.40 mg/L 12/03/2024 12:57 PM EDT [facility] Comment: INTERPRETIVE INFORMATION: [place] Qnt Free Light Chains Undetected antigen excess is a rare event but cannot be excluded. Free light chain results should always be interpreted in conjunction with other clinical and laboratory findings. Lambda Qnt Free Light Chains 123.84(H) 5.71 - 26.30 mg/L 12/03/2024 12:57 PM EDT [facility] Comment: INTERPRETIVE INFORMATION: Lambda Qnt Free Light Chains Undetected antigen excess is a rare event but cannot be excluded. Free light chain results should always be interpreted in conjunction with other clinical and laboratory findings. [place]/Lambda Free Light Chain Ratio 1.40 0.26 - 1.65 12/03/2024 12:57 PM EDT [facility] SPEP/MAEGAN Interpretation See Note 12/03/2024 12:57 PM EDT [facility] Comment: Restricted band in the beta [...] Note 12/03/2024 12:57 PM EDT [facility] Comment: Authorized individuals can access the [facility] Enhanced Report with an [facility] Connect account using the following link. Your local lab can assist you in obtaining the patient report if you don't have a Connect account. [email or web address] Performed By: [facility] [address] [place] [id number] Public Safety Director: Lalo Mortensen MD, PhD CLIA Number: [id number] Blood Venipuncture / Unknown 11/30/2024 11:01 AM EDT 11/30/2024 12:17 PM EDT Hill Boo MD LAB BLOOD ORDERABLES Final Resu lt [facility] [address] [place] [address], [facility] [phone] * Alpha Fetoprotein Tumor Marker(SENDOUT) (11/30/2024 11:01 AM EDT) Alpha Fetoprotein Tumor Marker 2 0 - 9 ng/mL 12/01/2024 3:41 PM EDT [facility] Comment: INTERPRETIVE INFORMATION: Alpha Fetoprotein Tumor Marker [...] reference intervals for this test in the [facility] Test Directory (CoAlign). Performed By: [facility] [address] [place] [id number] Public Safety Director: Lalo Mortensen MD, PhD CLIA Number: [id number] Blood Venipuncture / Unknown 11/30/2024 11:01 AM EDT 11/30/2024 11:06 AM EDT us Destiney Llanes APRN LAB BLOOD [place] [address], [facility] [phone] * Glucose, Nova Meter (11/30/2024 10:46 AM EDT) [facility] POC-GLUCOSE 102 70 - 110 mg/dL 11/30/2024 10:[address] [facility] Comment: In the event of poor peripheral blood flow, venous or arterial blood should be used due to the potential of erroneous results. Notified Nurse RBV Raisin Washer [id number] 11/30/2024 10:[address] [facility] Blood WHOLE BLOOD / Unknown 11/30/2024 10:46 AM EDT 11/30/2024 10:[address] [facility] - 11/30/2024 10:47 AM EDT Raisin Washer ID is - [id number] us Timothy Bai MD POINT OF CARE TEST ORDERAB LES Final Result [facility] [address] [phone] * (ABNORMAL) Vitamin D, 25-Hydroxy (11/30/2024 8:20 AM EDT) [facility] Vitamin D 25-Hydroxy 22.0(L) 30 - 80 ng/mL 11/30/2024 9:[address] [facility] Blood Venipuncture / Unknown 11/30/2024 8:20 AM EDT 11/30/2024 9:08 AM EDT Timothy Bai MD LAB BLOOD ORDERABLES Final Result [facility] [address] [phone] * Hemoglobin A1c (11/30/2024 8:20 AM EDT) Hemoglobin A1C 4.9 4.0 - 5.6 % 11/30/2024 9:[address] [facility] Comment: Hemoglobin A1C levels are related to mean glucose during the preceding 2-3 months. Less than 7% demonstrates glycemic control in diabetic patients. Hemoglobin AlC % Suggested Diagnosis > or = 6.5 Diabetic 5.7 - 6.4 Prediabetic <5.7 Non-diabetic eAVG Glucose 93.93 70 - 126 mg/dL 11/30/2024 9:[address] [facility] Blood Venipuncture / Unknown 11/30/2024 8:20 AM EDT 11/30/2024 9:07 AM EDT us Huey Hurtado MD LAB BLOOD ORDERABLES Final Resul t [facility] [address] [phone] * ECHO COMPLETE (DOPPLER / COLOR) WO CONTRAST (11/30/2024 7:50 AM EDT) Anatomical Region Laterality Modality Heart Vascular Ultraso und 11/30/2024 7:25 AM EDT Narrative 11/30/2024 10:46 AM EDT TRANSTHORACIC ECHOCARDIOGRAPHY REPORT Demographics Patient Name: RIN JONES : 1960 Age: 64 year(s) Corporate ID Number: [id number] Gender Female Ramp Attendant: Giovanna Rock Height: 67 inches [facility] Referring Physician: HUEY HURTADO Weight: [...] 1.35 m/s E/A ratio: 0.97 m/s Volume [id number] LV length: 8.51 cm ml Volume uoazofnq28.96 ml LVOT diameter: 1.79 cm Normal sized [...] Valve TR velocity: 2.51 m/s TR gradient: 25.18522 mmHg Estimated RAP: 3 mmHg RVSP: 28.12 [...] 1960 Age: 64 year(s) Corporate ID Number: [id number] Gender Female Ramp Attendant: Giovanna Rock Height: 67 inches [facility] Referring Physician: HUEY HURTADO Weight: [...] 1.35 m/s E/A ratio: 0.97 m/s Volume [id number] LV length: 8.51 cm ml Volume oqpuefdd09.96 ml LVOT diameter: 1.79 cm Normal sized [...] Valve TR velocity: 2.51 m/s TR gradient: 25.14960 mmHg Estimated RAP: 3 mmHg RVSP: 28.12 [...] - 110 mg/dL 11/30/2024 5:[address] [facility] Comment: In the event of poor peripheral blood flow, venous or arterial blood should be used due to the potential of erroneous results. Protocols Followed Raisin Washer [id number] 11/30/2024 5:[address] [facility] Blood WHOLE BLOOD / Unknown 11/30/2024 5:13 AM EDT 11/30/2024 5:[address] [facility] - 11/30/2024 5:17 AM EDT Raisin Washer ID is - [id number] us Albert Garcia MD POINT OF CARE TEST ORDERABLES Fi nal Result Performing Organization Address [facility]/ZIP Co de Phone Number [facility] [address] [phone] * Blood Culture (11/30/2024 3:42 AM EDT) Result No growth in 5 days 12/05/2024 5:[address] [facility] Blood ENTIRE RIGHT UPPER ARM / Unknown Venipuncture / Unknown 11/30/2024 3:42 AM EDT 11/30/2024 4:09 AM EDT us Huey Hurtado MD MICROBIOLOGY - GENERAL ORDERABLE S Final Result Performing Organization Address [facility] Co de Phone Number [facility] [address] [phone] * Folate, Serum (11/30/2024 3:40 AM EDT) Folate 7.0 7.0 - 31.4 ng/mL 11/30/2024 6:[address] [facility] Blood Venipuncture / Unknown 11/30/2024 3:40 AM EDT 11/30/2024 4:09 AM EDT us Laura Batista MD LAB BLOOD ORDERABLES Final Res ult Performing Organization Address [facility]/ZIP Co de Phone Number [facility] [address] [phone] * (ABNORMAL) Iron and TIBC (11/30/2024 3:40 AM EDT) Iron 63 50 - 170 ug/dL 11/30/2024 6:[address] [facility] TIBC 183(L) 250 - 435 ug/dL 11/30/2024 6:[address] [facility] % Saturation 34 % 11/30/2024 6:[address] [facility] UIBC 120 11/30/2024 6:[address] [facility] Blood Venipuncture / Unknown 11/30/2024 3:40 AM EDT 11/30/2024 4:09 AM EDT us Laura Batista MD LAB BLOOD ORDERABLES Final Res ult Performing Organization Address [facility] Co de Phone Number [facility] [address] [phone] * Ferritin (11/30/2024 3:40 AM EDT) Ferritin 168.51 4.63 - 204.00 ng/mL 11/30/2024 6:[address] [facility] Blood Venipuncture / Unknown 11/30/2024 3:40 AM EDT 11/30/2024 4:09 AM EDT us Laura Batista MD LAB BLOOD ORDERABLES Final Res ult Performing Organization Address [facility] Co de Phone Number [facility] [address] [phone] * (ABNORMAL) Lactate dehydrogenase (LDH) (11/30/2024 3:40 AM EDT) LDH 261(H) 125 - 220 U/L 11/30/2024 12:[address] [facility] Blood Venipuncture / Unknown 11/30/2024 3:40 AM EDT 11/30/2024 4:09 AM EDT us Hill Boo MD LAB BLOOD ORDERABLES Final Resu lt Performing Organization Address [facility]/ZIP Co de Phone Number [facility] [address] [phone] * (ABNORMAL) Creatine Kinase (CK) (11/30/2024 3:40 AM EDT) Total CK 356(H) 29 - 168 U/L 11/30/2024 12:[address] [facility] Blood Venipuncture / Unknown 11/30/2024 3:40 AM EDT 11/30/2024 4:09 AM EDT us Hill Boo MD LAB BLOOD ORDERABLES Final Resu lt Performing Organization Address [facility] Co de Phone Number [facility] [address] [phone] * (ABNORMAL) Uric acid (11/30/2024 3:40 AM EDT) Uric Acid 11.2(H) 2.5 - 6.2 mg/dL 11/30/2024 12:[address] [facility] Blood Venipuncture / Unknown 11/30/2024 3:40 AM EDT 11/30/2024 4:09 AM EDT us Hill Boo MD LAB BLOOD ORDERABLES Final Resu lt Performing Organization Address [facility]/ZIP Co de Phone Number [facility] [address] [phone] * Vitamin B12 (11/30/2024 3:40 AM EDT) Vitamin B12 678 213 - 816 pg/mL 11/30/2024 8:[address] [facility] Blood Venipuncture / Unknown 11/30/2024 3:40 AM EDT 11/30/2024 4:09 AM EDT us Timothy Bai MD LAB BLOOD ORDERABLES Final Result [facility] [address] [phone] * Iron, serum (11/30/2024 3:40 AM EDT) [facility] Iron 64 50 - 170 ug/dL 11/30/2024 8:[address] [facility] Blood Venipuncture / Unknown 11/30/2024 3:40 AM EDT 11/30/2024 4:09 AM EDT Timothy Bai MD LAB BLOOD ORDERABLES Final Result Performing Organization Address [facility]/ZIP Co de Phone Number [facility] [address] [phone] * (ABNORMAL) CBC - Hemogram (SJ-BKR) (11/30/2024 3:40 AM EDT) [facility] WBC 1.9(LL) 4.0 - 10.0 K/ L 11/30/2024 4:[address] [facility] RBC 2.63(L) 3.93 - 5.22 M/ L 11/30/2024 4:[address] [facility] Hemoglobin 8.2(L) 11.2 - 15.7 GM/DL 11/30/2024 4:[address] [facility] Hematocrit 26.3(L) 34.1 - 44.9 % 11/30/2024 4:[address] [facility] MCV 100(H) 79 - 95 fL 11/30/2024 4:[address] [facility] MCH 31.2 25.6 - 32.2 pg 11/30/2024 4:[address] [facility] MCHC 31.2(L) 32.2 - 35.5 GM/DL 11/30/2024 4:[address] [facility] RDW 16.2(H) 11.7 - 14.4 % 11/30/2024 4:[address] [facility] Platelets 64(L) 140 - 375 K/CU MM 11/30/2024 4:[address] [facility] MPV 10.4 9.4 - 12.3 fL 11/30/2024 4:[address] [facility] Blood Venipuncture / Unknown 11/30/2024 3:40 AM EDT 11/30/2024 4:10 AM EDT us Huey Hurtado MD LAB BLOOD ORDERABLES Final Resul t [facility] [address] [phone] * (ABNORMAL) Comprehensive Metabolic Panel (11/30/2024 3:40 AM EDT) Sodium 144 136 - 145 meq/L 11/30/2024 5:[address] [facility] Potassium 4.6 3.4 - 5.1 meq/L 11/30/2024 5:[address] [facility] Chloride 115(H) 98 - 112 meq/L 11/30/2024 5:[address] [facility] CO2 20(L) 22 - 29 meq/L 11/30/2024 5:[address] [facility] Calcium 8.3(L) 8.4 - 10.2 mg/dL 11/30/2024 5:[address] [facility] Glucose 86 82 - 115 mg/dL 11/30/2024 5:[address] [facility] BUN 74.2(H) 9.8 - 20.1 mg/dL 11/30/2024 5:[address] [facility] Creatinine 4.15(H) 0.57 - 1.11 mg/dL 11/30/2024 5:[address] [facility] BUN/Creatinine 18 8 - 20 11/30/2024 5:[address] [facility] eGFR (mL/min/1.73m2) 12(L) >=60 mL/min/1. 73m2 11/30/2024 5:[address] [facility] Albumin 2.2(L) 3.5 - 5.0 g/dL 11/30/2024 5:[address] [facility] Alkaline Phosphatase 83 40 - 150 U/L 11/30/2024 5:[address] [facility] ALT 17 <=34 U/L 11/30/2024 5:[address] [facility] Comment: ALT2 reagent used for testing does not contain P5P supplementation and therefore may miss ALT elevations in patients with B6 deficiency. This population may be as high as 10% in the [place], with risk factors including malabsorption, drug interactions, and alcoholic hepatitis. AST 43(H) 11 - 34 U/L 11/30/2024 5:[address] [facility] Comment: AST2 reagent used for testing does not contain P5P supplementation and therefore may miss AST elevations in patients with B6 deficiency. This population may be as high as 10% in the [place], with risk factors including malabsorption, drug interactions, and alcoholic hepatitis. Total Bilirubin 0.8 0.2 - 1.2 mg/dL 11/30/2024 5:[address] [facility] Protein, Total 6.5 6.4 - 8.3 g/dL 11/30/2024 5:[address] [facility] Globulin 4.3(H) 2.5 - 4.1 g/dL 11/30/2024 5:07 AM [facility] Anion Gap 14(H) 4 - 12 11/30/2024 5:[address] [facility] A/G Ratio 0.5(L) 0.7 - 1.9 11/30/2024 5:[address] [facility] Osmolality Calc 308.1 mOsm/kg 5:[address] [facility] Blood Venipuncture / Unknown 11/30/2024 3:40 AM EDT 11/30/2024 4:09 AM EDT us Huey Hurtado MD LAB BLOOD ORDERABLES Final Resul t [facility] [address] [phone] * Procalcitonin (11/30/2024 3:40 AM EDT) Procalcitonin 0.26 See Comment ng/mL 11/30/2024 5:[address] [facility] Comment: Sepsis comment <0.5 Antibiotics [...] MD LAB BLOOD ORDERABLES Final Resul t [facility] [address] [phone] * Blood Culture (11/30/2024 3:40 AM EDT) Result No growth in 5 days 12/05/2024 5:[address] [facility] Blood ENTIRE LEFT UPPER ARM / Unknown Venipuncture / Unknown 11/30/2024 3:40 AM EDT 11/30/2024 4:09 AM EDT us Huey Hurtado MD MICROBIOLOGY - GENERAL ORDERABLE S Final Result [facility] [address] [phone] * Ammonia (11/30/2024 3:40 AM EDT) Ammonia 59 18 - 72 mol/L 11/30/2024 4:[address] [facility] Blood Venipuncture / Unknown 11/30/2024 3:40 AM EDT 11/30/2024 4:10 AM EDT us Huey Hurtado MD LAB BLOOD ORDERABLES Final Resul t Performing Organization Address [facility] Phone Number [facility] [address] [phone] * (ABNORMAL) Magnesium (11/30/2024 3:40 AM EDT) Magnesium 2.7(H) 1.6 - 2.6 mg/dL 11/30/2024 5:[address] [facility] Blood Venipuncture / Unknown 11/30/2024 3:40 AM EDT 11/30/2024 4:09 AM EDT us Huey Hurtado MD LAB BLOOD ORDERABLES Final Resul t Performing Organization Address [facility] Phone Number [facility] [address] [phone] * Lactic Acid with reflex (11/30/2024 3:40 AM EDT) Lactic Acid Level (mmol/L) 0.9 0.5 - 2.2 mmol/L 11/30/2024 5:[address] [facility] Blood Venipuncture / Unknown 11/30/2024 3:40 AM EDT 11/30/2024 4:10 AM EDT us Huey Hurtado MD LAB BLOOD ORDERABLES Final Resul t Performing Organization Address [facility] Phone Number [facility] [address] [phone] * aPTT (11/30/2024 3:40 AM EDT) aPTT 27.7 22.0 - 32.0 seconds 11/30/2024 4:[address] [facility] Blood Venipuncture / Unknown 11/30/2024 3:40 AM EDT 11/30/2024 4:10 AM EDT us Huey Hurtado MD LAB BLOOD ORDERABLES Final Resul t Performing Organization Address [facility] Phone Number [facility] [address] [phone] * (ABNORMAL) Prothrombin time/INR (11/30/2024 3:40 AM EDT) Protime 12.9(H) 9.0 - 12.0 seconds 11/30/2024 4:[address] [facility] INR 1.17(H) 0.80 - 1.10 11/30/2024 4:[address] [facility] Comment: Recommended therapeutic ranges using [...] ORDERABLES Final Resul t Performing Organization Address [facility] Phone Number [facility] [address] [phone] * EKG-SCANNED (11/30/2024) Narrative 11/30/2024 Ordered by [...] IMG once as needed, intravenous, Starting on [facility] 12/02/24 at 1153, For 1 dose, Intra-op [...] Blood Sugar is less than 180 beteween [id number], DO NOT give corrective insulin unless otherwise [...] Olimpia Mcmillan, DAYANARA)1420 (Given - Provider: Olimpia Mcmillan RN)2030 (Given - Provider: Jamal Lopez RN) 0930 (Given - Provider: Olimpia Mcmillan, DAYANARA)1608 (Given - Provider: Olimpia Mcmillan RN) insulin lispro (HUMALOG, ADMELOG) injection 0-18 Units 0-18 Units 4 times daily (before meals and nightly), subcutaneous, First dose on Fri11/30/24 at 0730, If Blood Sugar is less than 180 beteween 7732-1485, DO NOT give corrective insulin unless otherwise [...] Olimpia Mcmillan RN)1608 (Given - Provider: Olimpia Mcmillan, DAYANARA) lactulose [...] RN) 09 (Given - Provider: Olimpia Mcmillan, RN)2030 (Given - Provider: Jamal Lopez, RN) 0931 (Given - Provider: Olimpia Mcmillan, RN) [...] IV (CANCELED) STAT, Once, On Fri11/30/24 at 025, For 1 occurrence And Saline Lock IV (CANCELED) Routine, Once, On Fri11/30/24 at 025, For 1 occurrence And sodium chloride flush 10 mLJump to med 10 mL As needed, intravenous, line care, Starting on Fri11/30/24 at 0252, Every 8 hours and PRN to flush documented in this encounter Care Teams Schedule Supervisor Relationship Specialty Start Date End Date [facility] Connection, [facility] Connection [place] [address] PCP - General 11/30/24 12/13/24 Provider, Not In System [place] PCP - General 12/14/24 documented as of this encounter
--- OUTSIDE RECORDS SUMMARY | 2024-12-01 08:55 | XMS_ITS | Encounter Summary ---
Author Organization [facility] In iatives Address [address] [place] [address] Care Team Providers Care Radio Talk Show Host Name Role Phone [facility] Francesca, Find-A-Doc Primary Care Provider Reason for Visit * Auth/Cert (Routine) Specialty Diagnoses / Procedures Referred By Mayela may Referred To Contact Diagnoses Anasarca ACUTE RENAL FAILURE [address] Medical Telemetry Unit [address] [place] [phone] Phone: tel: fax: [address] Medical Telemetry Unit [address] [place] [phone] Phone: tel: fax: Referral ID Status Reason Start Date Expiration Date Visits Re quested Visits Authorized [id number] 1 1 Encounter Details Date Type Department Care Team (Late st Contact Info) Description 12/01/2024 8:55 AM EDT Anesthesia Event [facility] Endoscopy [address] [place] [address] Ashtyn Sanchez MD [address] [place] [address] Anesthesia Record Procedure Summary Procedure Name Responsible [...] your living situation today? I have a [facility] place to live 11/30/2024 Think about the [...] Do you speak a language other than [place] at [facility]? No 11/30/2024 Do you want help [...] Procedure Summary Date: 12/01/24 Room / Location: [facility] Anesthesia Start: 08 Anesthesia Stop: [...] status: nasal cannula Hydration status: stable Color: [place] Activity: Moves 4 extremities Inotropes/Vasopressors: N/A No notable events documented. Rolo Stauffer CRNA 12/01/2024 9:43 AM EDT * Anesthesia Procedure Notes - Rolo Stauffer CRNA - 12/01/2024 9:06 AM EDT Associated Order(s): Intubation Intubation Authorized by: sAhtyn Sanchez MD Performed by: Rolo Stauffer CRNA [...] Coronel Date/Time: 12/01/24918 Procedure: ESOPHAGOGASTRODUODENOSCOPY (EGD) Location: [facility] 03 / [facility] Surgeons: Scott Daley MD Vitals: [...] abdomen, abdominal pain, BLE edema, transferred to [facility] for hepatorenal syndrome evaluation. Hx dark, tarry [...] (DOPPLER / COLOR) W OR WO CONTRAST [[id number]] Collected: 11/30/24 0725 Order Status: Completed Updated: 11/30/24 104 Narrative: TRANSTHORACIC ECHOCARDIOGRAPHY REPORT Demographics Patient Name: RIN JONES : 1960 Age: 64 year(s) Corporate ID Number: [id number] Gender Female Timber Grader: Giovanna Rock Height: 67 inches [facility] Referring Physician: HUEY RICHARDSON Weight: [...] .99 LV length: 8.51 cm ml Volume [id number] ml LVOT diameter: 1.79 cm Normal sized [...] Valve TR velocity: 2.51 m/s TR gradient: 25.53358 mmHg Estimated RAP: 3 mmHg RVSP: 28.12 [...] risks discussed with patient. Plan discussed with HYDRATOR OPERATOR. documented in this encounter Plan of Treatment Upcoming Encounters Date Type Department Care Team (Late st Contact Info) Description 01/27/2025 10:45 AM EDT Office Visit [facility] Electrophysiology [address] [place] [address] [address] [place] [address] [place] [address] [place] [address] [address] [place] [address] documented as of this encounter Procedures Procedure [...] mg documented in this encounter Care Teams Radio Talk Show Host Relationship Specialty Start Date End Date [facility] Connection, [facility]A-Doc [facility] [place] [address] PCP - General 11/30/24 12/13/24 documented as of this encounter
--- OUTSIDE RECORDS SUMMARY | 2024-12-01 09:19 | XMS_ITS | Encounter Summary ---
Author Organization [facility] Address [address] [place] [address] Care Team Providers Care Electric Switch Repairer Name Role Phone [facility] Connection, Find-A-Doc Primary Care Provider Reason for Visit * Auth/Cert (Routine) Specialty Diagnoses / Procedures Referred By Mayela may Referred To Contact Diagnoses Anasarca ACUTE RENAL FAILURE [address] Medical Telemetry Unit [address] [place] [phone] Phone: tel: fax: [address] Medical Telemetry Unit [address] [place] [phone] Phone: tel: fax: Referral ID Status Reason Start Date Expiration Date Visits Re quested Visits Authorized [id number] 1 1 Encounter Details Date Type Department Care Team (Late st Contact Info) Description 12/01/2024 9:19 AM EDT - 12/01/2024 9:[address] [facility] ([place], [place]) Endoscopy [address] [place] [address] Scott Daley MD [address] [place] [address] EGD, WITH FOREIGN BODY REMOVAL Social History [...] your living situation today? I have a [facility] place to live 11/30/2024 Think about [...] Do you speak a language other than Kosovan at [facility]? No 11/30/2024 Do you want help with [...] Physician: Not In System Provider Hospital Course Rotating Equipment Specialist(s): Discharge Diagnosis: Anasarca Cirrhosis Paroxysmal atrial fibrillation/nonsustained [...] diabetes, CKD, CAD, arthritis. Patient presented to [facility] with swollen abdomen, abdominal discomfort and [...] niece forced patient to visit [facility] emergency room today she really loves me. [...] a bone marrow biopsy which was unremarkable. Ina that she had anemia of chronic disease [...] These medications were sent to [facility] at [facility] [address] [place] [address] [address] [facility] [address], [facility] [phone] amiodarone 200 MG tablet ergocalciferol 1,250 mcg (50,000 unit) capsule lactulose 10 gram/15 mL solution pantoprazole 40 MG tablet rifAXIMin 550 mg These medications were sent to [place] [address] [place] [address] [facility] [address] metOLazone 2.5 MG tablet tamsulosin 0.4 mg [...] Contact information for follow-up [facility] [address] Next Steps: Go in 2 week(s) Instructions: Nephrology follow up 12/30/24 @8:45am Follow up with NAL in 1-2 weeks with renal function panel Primary care provider (PCP) Next Steps: Follow up Monika Hernandez APRN [facility] Primary Care [address] [place] [address] Next Steps: Go in 1 week(s) Instructions: PCP follow up 12/22/24 @3:00pm Time Spent on Discharge: I spent 35 minutes in yhar-bm-zqbg time with the patient and nursing staffconcerning [...] diabetes, CKD, CAD, arthritis. Patient presented to [facility] with swollen abdomen, abdominal discomfort and [...] niece forced patient to visit [facility] emergency room today she really loves me. [...] These medications were sent to [facility] at [address] [facility] [address] [place] [phone] amiodarone 200 MG tablet amoxicillin-clavulanate 500-125 mg [...] to 2-week Nephrology 1 to 2-week Disposition [facility] facility Time Spent: 45 min Electronically signed by Mary Carmen Mcfadden MD, 12/07/24, 10:20 AM EDT documented in this encounter Medications at Time of Discharge albuterol 90 mcg/actuation inhaler Inhale 1 puff by mouth every 6 (six) hours as needed for wheezing. amiodarone (PACERONE) 200 MG tablet Take 1 tablet (200 mg total) by mouth daily for 30 days. 30 tablet 12/07/2024 ammonium lactate (AMLACTIN) 12 % cream Apply [...] renal function - No emergent need of OPTOMETRY TEACHER - Monitor H/H and transfuse for Hgb [...] additional home health needs. Patient/family provided with [facility] approved choice list and Patient choice letter [...] Hematology/oncology following. Acute hypoxemic/hypercapnic respiratory failure - Ina to be due to pulmonary edema from [...] TBD Signed: Brad Coffman PA-C [facility] Hospitalist * Rea Bishop RD - 12/13/2024 [...] reported. 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 Requested chicken noodle soup for lunch. Agreeable to ONS TID. 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 She initially presented to [facility] with swollen abdomen, abdominal discomfort, and bilateral lower extremity pain. Her creatinine was elevated and as a result, she was transferred to [facility] ([place], [place]) for he patorenal syndrome. Upon arrival here, [...] BODY REMOVAL; Surgeon: Scott Daley MD; Location: [facility]; Service: Gastroenterology; Laterality: N/A; Allergies: [...] POC-GLUCOSE 127 (H) 70 - 110 mg/dL Liner Checker [id number] Glucose, Nova Meter Status: Abnormal Collection Time: 12/13/24 11:15 AM Result Value Ref Range POC-GLUCOSE 221 (H) 70 - 110 mg/dL Liner Checker [id number] Glucose, Nova Meter Status: Abnormal Collection Time: 12/13/24 4:24 PM Result Value Ref Range POC-GLUCOSE 156 (H) 70 - 110 mg/dL Liner Checker [id number] Glucose, Nova Meter Status: Abnormal Collection Time: 12/13/24 8:20 PM Result Value Ref Range POC-GLUCOSE 186 (H) 70 - 110 mg/dL Liner Checker [id number] Radiology Radiology Results (last day) No results found for the last 24 hours. Microbiology: Microbiology Results (last 7 days) Procedure Component Value Units Date/Time Fungus Culture W/ROSA MARIA Or Nimisha Ink [[id number]] Collected: 11/30/24 1603 Order Status: Completed Specimen: Peritoneal Fluid from Body Fluid Updated: 12/07/24 1700 Result No fungus isolated at 1 week. ROSA MARIA Prep No fungal elements seen Narrative: Specimen Description: peritoneal fluid AFB Culture And Stain [[id number]] Collected: 11/30/24 1603 Order Status: Completed Specimen: [...] to continue with albumin/diuretics no indication for OPTOMETRY TEACHER No significant pleural effusion for thoracentesis If needed repeat chest x-ray. Otherwise continue diuresis Pulmonary will sign off. Please call for any issues Case discussed during round. I have personally evaluated the patient and performed a dzgy-ke-rkft diagnostic evaluation on this patient; I have reviewed history, performed physical examination, reviewed laboratory studies. , andreviewed images independent of radiologist. I have actively directed the medical care, formulated assessemnt and plan of care. Patient requires a high complexity of decision making for assessment. Voice superintendent electric power technology ([employer]) is used for dictation of this note and sound-alike words might be erroneously placed despite reviewing the note for accuracy.Errors in dictation may reflect use of voice recognition software and not all errors in superintendent electric power may have been detectedprior to signing * [...] renal function - No emergent need of OPTOMETRY TEACHER - Monitor H/H and transfuse for Hgb [...] Coronel Admission Date: 11/30/2024 Primary Care Provider: [facility] Find-a-Doc Chief Complaint/Reason for Consult: No chief complaint on file. History of Present Illness: Mary Coronel is a 64 y.o. female, admitted on: 11/30/2024 1:43 AM. presented to [facility] with swollen abdomen, abdominal discomfort and [...] Culture And Stain AFB Culture And Stain [facility] Non-Ointment Mill Tender Cytology [facility] Non-Ointment Mill Tender Cytology DIFFERENTIAL, BODY FLUID DIFFERENTIAL, BODY FLUID Body Fluid/CSF - Path Review () Body Fluid/CSF - Path Review () [facility] BONE MARROW SMEAR, ASPIRATION, AND STAIN [facility] BONE MARROW SMEAR, ASPIRATION, AND STAIN [...] BODY REMOVAL; Surgeon: Scott Daley MD; Location: [facility]; Service: Gastroenterology; Laterality: N/A; Allergies: [...] Normal range of motion. Integumentary: Warm, Dry, [place]. Neurologic: No obvious focal deficit Psychiatric: Cooperative, Appropriate mood & affect. Labs, Imaging, and Other Studies: Echo Results (last 7 days) Procedure Component Value Units Date/Time ECHO COMPLETE (DOPPLER / COLOR) W OR WO CONTRAST [[id number]] Collected: 11/30/24724 Order Status: Completed Updated: 11/30/241045 Narrative: TRANSTHORACIC ECHOCARDIOGRAPHY REPORT Demographics Patient Name: RIN JONES : 1960 Age: 64 year(s) Corporate ID Number: [id number] Gender Female Order Processing Clerk: Giovanna Rock Height: 67 inches [facility] Referring Physician: HUEY HURTADO Weight: 225 pounds Interpreting JESSICA RAYMOND MD BMI: 35.24 kg/m^2 Physician: Date of Service: 11/30/2024 Blood Pressure: 118/59 mmHg Room Number: 579 Type of Study: TTE procedure: ECHO COMPLETE (DOPPLER / COLOR) W OR WO CONTRAST. Patient Status: Routine IP [facility]quate [facility] History/Tech Notes: Indication: [...] 1.35 m/s E/A ratio: 0.97 m/s Volume mjepqpfti563.99 LV length: 8.51 cm ml Volume .96 [...] Valve TR velocity: 2.51 m/s TR gradient: 25.30389 mmHg Estimated RAP: 3 mmHg RVSP: 28.12 [...] (DOPPLER / COLOR) W OR WO CONTRAST [[id number]] Collected: 11/30/2425 Order Status: Completed Updated: 11/30/24 104 Narrative: TRANSTHORACIC ECHOCARDIOGRAPHY REPORT Demographics Patient Name: RIN JONES : 1960 Age: 64 year(s) Corporate ID Number: [id number] Gender Female Order Processing Clerk: Giovanna Rock Height: 67 inches [facility] Referring Physician: HUEY HURTADO Weight: 225 pounds Interpreting JESSICA RAYMOND MD BMI: 35.24 kg/m^2 Physician: Date of Service: 11/30/2024 Blood Pressure: 118/59 mmHg Room Number: 579 Type of Study: TTE procedure: ECHO COMPLETE (DOPPLER / COLOR) W OR WO CONTRAST. Patient Status: Routine IP [facility] Adequate [facility] History/Tech Notes: Indication: [...] 1.35 m/s E/A ratio: 0.97 m/s Volume xhfgznkus613.99 LV length: 8.51 cm ml Volume zskbqgum44.96 ml LVOT diameter: 1.79 cm Normal sized [...] Valve TR velocity: 2.51 m/s TR gradient: 25.32439 mmHg Estimated RAP: 3 mmHg RVSP: 28.12 [...] imaging. Assessment and Plan: *Paroxysmal Atrial Fib [id number] of 3 to 4 also have some [...] Patient cannot take anticoagulation for A-fib despite [id number] because of multiple issue including GI bleeding [...] received call from Vesna Gibson (phone # [phone]) outreach coordinator with [facility] requesting notes from weekend. CM faxed weekend notes via [employer] to Ez Gibson to fax # [phone]. Patient will require a precert if a bed is offered. Update, 12/13, 3:07 pm Patient and family's first choice, [facility] have denied patient due to not being able to meet and accommodate patient's clinical needs. No information regarding how. Update 3:45 pm - Per facility's admission laundry manager, patient is requiring BiPaP 'too much' (17/02 per facility words), requiring a paracentesis too often, no activity tolerance, therefore patient is not rehab appropriate. CM asked [facility] to review referral to inquire about [...] purposes. MANGO has updated treatment team via Prong chat that are signed into patient's chart on 12/13 - QUIQUE, bedside RN, bedside TIRE FIXER, PT, and OT. Patient has other offers from the following: [facility] [place], [place]; offered bed prior to [facility]; follow up with Rama via [facility] [place], [place] KENNEY Zaragoza * Norm Cameron MD - 12/12/2024 8:47 PM EDT EP progress note Patient Name: Mary Coronel Admission Date: 11/30/2024 Primary Care Provider: [facility] Find-a-Doc Chief Complaint/Reason for Consult: No chief complaint on file. History of Present Illness: Mary Coronel is a 64 y.o. female, admitted on: 11/30/2024 1:43 AM. presented to [facility] with swollen abdomen, abdominal discomfort and [...] Culture And Stain AFB Culture And Stain [facility] Non-Ointment Mill Tender Cytology [facility] Non-Ointment Mill Tender Cytology DIFFERENTIAL, BODY FLUID DIFFERENTIAL, BODY FLUID Body Fluid/CSF - Path Review () Body Fluid/CSF - Path Review () [facility] BONE MARROW SMEAR, ASPIRATION, AND STAIN [facility] BONE MARROW SMEAR, ASPIRATION, AND STAIN [...] BODY REMOVAL; Surgeon: Scott Daley MD; Location: [facility]; Service: Gastroenterology; Laterality: N/A; Allergies: [...] Normal range of motion. Integumentary: Warm, Dry, [place]. Neurologic: No obvious focal deficit Psychiatric: Cooperative, Appropriate mood & affect. Labs, Imaging, and Other Studies: Echo Results (last 7 days) Procedure Component Value Units Date/Time ECHO COMPLETE (DOPPLER / COLOR) W OR WO CONTRAST [[id number]] Collected: 11/30/24724 Order Status: Completed Updated: 11/30/24 1046 Narrative: TRANSTHORACIC ECHOCARDIOGRAPHY REPORT Demographics Patient Name: RIN JONES : 1960 Age: 64 year(s) Corporate ID Number: [id number] Gender Female Order Processing Clerk: Giovanna Rock Height: 67 inches [facility] Referring Physician: HUEY HURTADO Weight: 225 pounds Interpreting JESSICA RAYMOND MD BMI: 35.24 kg/m^2 Physician: Date of Service: 11/30/2024 Blood Pressure: 118/59 mmHg Room Number: 579 Type of Study: TTE procedure: ECHO COMPLETE (DOPPLER / COLOR) W OR WO CONTRAST. Patient Status: Routine IP Study [facility] Adequate visualization History/Tech Notes: Indication: [...] 1.35 m/s E/A ratio: 0.97 m/s Volume wattilqqv708.99 LV length: 8.51 cm ml Volume bupdgnhz35.96 ml LVOT diameter: 1.79 cm Normal sized [...] Valve TR velocity: 2.51 m/s TR gradient: 25.98926 mmHg Estimated RAP: 3 mmHg RVSP: 28.12 [...] including malabsorption, drug interactions, and alcoholic hepatitis. [employer] has become aware of sulfasalazine and sulfapyridine [...] (DOPPLER / COLOR) W OR WO CONTRAST [[id number]] Collected: 11/30/24724 Order Status: Completed Updated: 11/30/241045 Narrative: TRANSTHORACIC ECHOCARDIOGRAPHY REPORT Demographics Patient Name: RIN JONES : 1960 Age: 64 year(s) Corporate ID Number: [id number] Gender Female Order Processing Clerk: Giovanna Rock Height: 67 inches [facility] Referring Physician: HUEY HURTADO Weight: 225 pounds Interpreting JESSICA RAYMOND MD BMI: 35.24 kg/m^2 Physician: Date of Service: 11/30/2024 Blood Pressure: 118/59 mmHg Room Number: 579 Type of Study: TTE procedure: ECHO COMPLETE (DOPPLER / COLOR) W OR WO CONTRAST. Patient Status: Routine IP [facility] History/Tech Notes: [...] 1.35 m/s E/A ratio: 0.97 m/s Volume rwmanrduc369.99 LV length: 8.51 cm ml Volume xzbzmfyb18.96 ml LVOT diameter: 1.79 cm Normal sized [...] Valve TR velocity: 2.51 m/s TR gradient: 25.72788 mmHg Estimated RAP: 3 mmHg RVSP: 28.12 [...] imaging. Assessment and Plan: *Paroxysmal Atrial Fib [id number] of 3 to 4 also have some [...] Patient cannot take anticoagulation for A-fib despite [id number] because of multiple issue including GI bleeding [...] renal function - No emergent need of OPTOMETRY TEACHER - Monitor H/H and transfuse for Hgb [...] Hematology/oncology following. Acute hypoxemic/hypercapnic respiratory failure - Ina to be due to pulmonary edema from [...] draining clear yellow urine secondary to urine retention. She was unsure if she still had lower extremity edema or not. States that her abdomen did not feelas large as previous. Denied nausea or vomiting. [...] Hematology/oncology following. Acute hypoxemic/hypercapnic respiratory failure - Ina to be due to pulmonary edema from [...] TBD Signed: Brad Coffman PA-C [facility] Hospitalist * Laura Cervantes MD - [...] renal function - No emergent need of OPTOMETRY TEACHER - Monitor H/H and transfuse for Hgb [...] BODY REMOVAL; Surgeon: Scott Daley MD; Location: [facility]; Service: Gastroenterology; Laterality: N/A; General Visit type: Treatment Approved by: Nurse Metzger Patient disposition upon entry: Patient verified by name, Patient verified by date of , Supinein bed Co-treated by: SYSTEMS ADMINISTRATION ANALYST Assisted by: rehab care assistant Precautions Weightbearing status: No restrictions Precautions: [...] had BM and pt returned to EOB. FURNACE BRAZER entered room to assist. Pt was able [...] Mcgill this morning via phone. Family prefers [facility] ([facility]), as they live 10-20minutes away from facility. HAYDEN contacted outreach coordinator via text, number provided by family, phone # [phone]. farhan Astroga, fax # [phone]. CM sent updated referral. Patient will need precert. Family, sister Jojo will be able to transport at discharge, but will been 24 hour notice to be able to transport to facility. CM plan is SNF/rehab possible early next week pending medical readiness, and precert. Update 3:27 pm - updated PT and OT notes faxed to [facility] KENNEY Zaragoza * Laura Cervantes [...] renal function - No emergent need of OPTOMETRY TEACHER - Monitor H/H and transfuse for Hgb [...] POC-GLUCOSE 162 (H) 70 - 110 mg/dL Liner Checker [id number] ABG Status: Abnormal Collection Time: 12/10/24 6:42 [...] ARTERIAL 8.5 (L) 12.0 - 18.0 g/dL [facility] COLLECTION SITE Left Radial Arterial Puncture [...] POC-GLUCOSE 195 (H) 70 - 110 mg/dL Liner Checker [id number] Glucose, Nova Meter Status: Abnormal Collection Time: 12/10/24 6:32 PM Result Value Ref Range POC-GLUCOSE 235 (H) 70 - 110 mg/dL Liner Checker [id number] Glucose, Nova Meter Status: Abnormal Collection Time: 12/10/24 7:38 PM Result Value Ref Range POC-GLUCOSE 201 (H) 70 - 110 mg/dL Liner Checker [id number] US paracentesis Narrative: ULTRASOUND-GUIDED PARACENTESIS HISTORY: Ascites. ATTENDING PHYSICIAN: Dr. Haseeb Gil PHYSICIAN JAVA ENGINEER: Sujit Blackman PA-C FINDINGS: After informed consent [...] Pending blood gas improvement And more awake internet manager working discharge plan, likely dc 1-2 days pending improvement, plan for paracentesis today * Deysi Foss MD - 12/10/2024 8:13 AM EDT EP progress note Patient Name: Mary Coronel Admission Date: 11/30/2024 Primary Care Provider: [facility] Find-a-Doc Chief Complaint/Reason for Consult: No chief complaint on file. History of Present Illness: Mary Coronel is a 64 y.o. female, admitted on: 11/30/2024 1:43 AM. presented to [facility] with swollen abdomen, abdominal discomfort and [...] Culture And Stain AFB Culture And Stain [facility] Non-Ointment Mill Tender Cytology [facility] Non-Ointment Mill Tender Cytology DIFFERENTIAL, BODY FLUID DIFFERENTIAL, BODY FLUID Body Fluid/CSF - Path Review () Body Fluid/CSF - Path Review () [facility] BONE MARROW SMEAR, ASPIRATION, AND STAIN [facility] BONE MARROW SMEAR, ASPIRATION, AND STAIN [...] BODY REMOVAL; Surgeon: Scott Daley MD; Location: [facility]; Service: Gastroenterology; Laterality: N/A; Allergies: [...] Normal range of motion. Integumentary: Warm, Dry, [place]. Neurologic: No obvious focal deficit Psychiatric: Cooperative, Appropriate mood & affect. Labs, Imaging, and Other Studies: Echo Results (last 7 days) Procedure Component Value Units Date/Time ECHO COMPLETE (DOPPLER / COLOR) W OR WO CONTRAST [[id number]] Collected: 11/30/24 8103 Order Status: Completed Updated: 11/30/24 1046 Narrative: TRANSTHORACIC ECHOCARDIOGRAPHY REPORT Demographics Patient Name: RIN JONES : 1960 Age: 64 year(s) Corporate ID Number: [id number] Gender Female Order Processing Clerk: Giovanna Rock Height: 67 inches [facility] Referring Physician: HUEY HURTADO Weight: 225 pounds Interpreting JESSICA RAYMOND MD BMI: 35.24 kg/m^2 Physician: Date of Service: 11/30/2024 Blood Pressure: 118/59 mmHg Room Number: 579 Type of Study: TTE procedure: ECHO COMPLETE (DOPPLER / COLOR) W OR WO CONTRAST. Patient Status: Routine IP [facility] History/Tech Notes: [...] 1.35 m/s E/A ratio: 0.97 m/s Volume xolhrgyya920.99 LV length: 8.51 cm ml Volume wbecpmre75.96 ml LVOT diameter: 1.79 cm Normal sized [...] Valve TR velocity: 2.51 m/s TR gradient: 25.65459 mmHg Estimated RAP: 3 mmHg RVSP: 28.12 [...] (DOPPLER / COLOR) W OR WO CONTRAST [[id number]] Collected: 11/30/24724 Order Status: Completed Updated: 11/30/241045 Narrative: TRANSTHORACIC ECHOCARDIOGRAPHY REPORT Demographics Patient Name: RIN JONES : 1960 Age: 64 year(s) Corporate ID Number: [id number] Gender Female Order Processing Clerk: Giovanna Rock Height: 67 inches [facility] Referring Physician: HUEY HURTADO Weight: 225 [...] 1.35 m/s E/A ratio: 0.97 m/s Volume upfnofzuk412.99 LV length: 8.51 cm ml Volume zqlyvxmv54.96 ml LVOT diameter: 1.79 cm Normal sized [...] Valve TR velocity: 2.51 m/s TR gradient: 25.09298 mmHg Estimated RAP: 3 mmHg RVSP: 28.12 [...] imaging. Assessment and Plan: *Paroxysmal Atrial Fib [id number] of 3 to 4 also have some [...] Patient cannot take anticoagulation for A-fib despite [id number] because of multiple issue including GI bleeding [...] history as below. She initially presented to [facility] with swollen abdomen, abdominal discomfort, and bilateral lower extremity pain. Her creatinine was elevated and as a result, she was transferred to [facility] ([place], [place]) for he patorenal syndrome. Upon arrival here, [...] BODY REMOVAL; Surgeon: Scott Daley MD; Location: [facility]; Service: Gastroenterology; Laterality: N/A; Allergies: [...] ARTERIAL 8.7 (L) 12.0 - 18.0 g/dL [facility] COLLECTION SITE Left Radial Arterial Puncture Yes Blood Gas O2 Delivery Device Cannula Oxygen Flow Rate 4 Blood Gas PT Temperature C 37.0 Sen's Test Acceptable Critical Values Notification Critical Blood gas called to DAYANARA MILES . [place] [id number] and confirmed on12/09/2024 06:51 ABG Number of Draw Attempts 1 FIO2 Blood Gas Temperature Corrected Results No No Glucose, Nova Meter Status: Abnormal Collection Time: 12/09/24 11:17 AM Result Value Ref Range POC-GLUCOSE 173 (H) 70 - 110 mg/dL Liner Checker [id number] Glucose, Nova Meter Status: Abnormal Collection Time: 12/09/24 4:23 PM Result Value Ref Range POC-GLUCOSE 173 (H) 70 - 110 mg/dL Liner Checker [id number] Glucose, Nova Meter Status: Abnormal Collection Time: 12/09/24 7:30 PM Result Value Ref Range POC-GLUCOSE 158 (H) 70 - 110 mg/dL Liner Checker [id number] Glucose, Nova Meter Status: Abnormal Collection Time: 12/10/24 5:52 AM Result Value Ref Range POC-GLUCOSE 162 (H) 70 - 110 mg/dL Liner Checker [id number] Radiology Radiology Results (last day) Procedure Component Value Units Date/Time XR chest AP portable [[id number]] Collected: 12/09/24 0844 Order Status: Completed Updated: [...] Fungus Culture W/ROSA MARIA Or Nimisha Ink [[id number]] Collected: 11/30/24 160 Order Status: Completed Specimen: Peritoneal Fluid from Body Fluid Updated: 12/07/24 170 Result No fungus isolated at 1 week. ROSA MARIA Prep No fungal elements seen Narrative: Specimen Description: peritoneal fluid AFB Culture And Stain [[id number]] Collected: 11/30/24 160 Order Status: Completed Specimen: Peritoneal Fluid from Body Fluid Updated: 12/07/24 170 Result No Acid Fast Bacilli isolated at 1 week. AFB Smear No acid fast bacilli seen Narrative: Specimen Description: peritoneal fluid Anaerobic Culture [[id number]] Collected: 11/30/24 160 Order Status: Completed Specimen: Peritoneal Fluid from Body Fluid Updated: 12/05/24 0634 Result No Anaerobic growth Narrative: Specimen Description: peritoneal fluid Blood Culture [[id number]] Collected: 11/30/24 0340 Order Status: Completed Specimen: Blood from Arm, Left Updated: 12/05/24 0501 Result No growth in 5 days Blood Culture [[id number]] Collected: 11/30/24 0342 Order Status: Completed Specimen: Blood from Arm, Right Updated: 12/05/24 0501 Result No growth in 5 days Body Fluid Culture + Gram Stain [[id number]] Collected: 11/30/24 160 Order Status: Completed Specimen: Peritoneal Fluid from Body Fluid Updated: 12/03/24 0907 Result No growth Gram Stain Result No organisms seen No cells seen Narrative: Specimen Description: peritoneal fluid Body Fluid/CSF - Path Review () [[id number]] Collected: 11/30/24 160 Order Status: Completed Specimen: [...] to continue with albumin/diuretics no indication for OPTOMETRY TEACHER No significant pleural effusion for thoracentesis If needed repeat chest x-ray. Otherwise continue diuresis Pulmonary continue to follow Case discussed during round. I have personally evaluated the patient and performed a [id number]-[id number] diagnostic evaluation on this patient; I have reviewed history, performed physical examination, reviewed laboratory studies. , andreviewed images independent of radiologist. I have actively directed the medical care, formulated assessemnt and plan of care. Patient requires a high complexity of decision making for assessment. 34 minutes critical care time was spent. Voice superintendent electric power technology ([employer]) is used for dictation of this note and sound-alike words might be erroneously placed despite reviewing the note for accuracy.Errors in dictation may reflect use of voice recognition software and not all errors in superintendent electric power may have been detectedprior to signing * [...] POC-GLUCOSE 159 (H) 70 - 110 mg/dL Liner Checker [id number] Glucose, Nova Meter Status: Abnormal Collection Time: 12/08/24 8:08 PM Result Value Ref Range POC-GLUCOSE 172 (H) 70 - 110 mg/dL Liner Checker [id number] Basic Metabolic Panel Status: Abnormal Collection Time: [...] POC-GLUCOSE 148 (H) 70 - 110 mg/dL Liner Checker [id number] ABG Status: Abnormal Collection Time: 12/09/24 6:37 [...] ARTERIAL 8.7 (L) 12.0 - 18.0 g/dL [facility] COLLECTION SITE Left Radial Arterial Puncture Yes Blood Gas O2 Delivery Device Cannula Oxygen Flow Rate 4 Blood Gas PT Temperature C 37.0 Sen's Test Acceptable Critical Values Notification Critical Blood gas called to DAYANARA MILES . [place] [id number] and confirmed on12/09/2024 06:51 ABG Number of Draw Attempts 1 FIO2 Blood Gas Temperature Corrected Results No No Glucose, Nova Meter Status: Abnormal Collection Time: 12/09/24 11:17 AM Result Value Ref Range POC-GLUCOSE 173 (H) 70 - 110 mg/dL Liner Checker [id number] XR chest AP portable Narrative: PORTABLE CHEST. [...] Pending blood gas improvement And more awake internet manager working discharge plan * Tori Kamara [...] Ext: +++ Pedal edema , no cyanosis REPAIR ARMATURE WINDER: Alert, No focal deficit noted grossly Psy: Cooperative Labs: Results for orders placed or performed during the hospital encounter of 11/30/24 (from the past 24 hours) Glucose, Nova Meter Status: Abnormal Collection Time: 12/08/24 10:57 AM Result Value Ref Range POC-GLUCOSE 191 (H) 70 - 110 mg/dL Liner Checker [id number] Glucose, Nova Meter Status: Abnormal Collection Time: 12/08/24 3:34 PM Result Value Ref Range POC-GLUCOSE 159 (H) 70 - 110 mg/dL Liner Checker [id number] Glucose, Nova Meter Status: Abnormal Collection Time: 12/08/24 8:08 PM Result Value Ref Range POC-GLUCOSE 172 (H) 70 - 110 mg/dL Liner Checker [id number] Basic Metabolic Panel Status: Abnormal Collection Time: [...] POC-GLUCOSE 148 (H) 70 - 110 mg/dL Liner Checker [id number] ABG Status: Abnormal Collection Time: 12/09/24 6:37 [...] ARTERIAL 8.7 (L) 12.0 - 18.0 g/dL [facility] COLLECTION SITE Left Radial Arterial Puncture Yes Blood Gas O2 Delivery Device Cannula Oxygen Flow Rate 4 Blood Gas PT Temperature C 37.0 Sen's Test Acceptable Critical Values Notification Critical Blood gas called to DAYANARA MILES . [place] [id number] and confirmed on12/09/2024 06:51 ABG Number of [...] renal function - No emergent need of OPTOMETRY TEACHER - Monitor H/H and transfuse for Hgb less than 7.0 Discussed with patient Follow up with [facility] in 1-2 weeks with renal function panel * KENNEY Zaragoza - 12/09/2024 8:04 AM EDTSummary: Referral Pending Discharge Plan Progress Note Family/Sister prefers [facility]. SW/CM sent referral this AM. Currently pending. [facility] [address] [place] [address] KENNEY Zaragoza * Blanka Malagon MD - 12/09/2024 6:30 AM EDT Images from the original note were not included. PULMONARY AND CRITICAL CARE Consult Note Date of Service: 12/09/2024 HPI: This is a 64 y.o. year old female with past medical history as below. She initially presented to [facility] with swollen abdomen, abdominal discomfort, and bilateral lower extremity pain. Her creatinine was elevated and as a result, she was transferred to [facility] ([place], [place]) for he patorenal syndrome. Upon arrival here, [...] BODY REMOVAL; Surgeon: Scott Daley MD; Location: [facility]; Service: Gastroenterology; Laterality: N/A; Allergies: [...] ARTERIAL 8.8 (L) 12.0 - 18.0 g/dL [facility]LE[facility] S[facility] Right Brachial Arterial Puncture Yes Blood Gas O2 Delivery Device Cannula Oxygen Flow Rate 4 Blood Gas PT Temperature C 37.0 Sen's Test Not Applicable Critical Values Notification Critical Blood gas called to KNOWN CONDITION . Results acknowledged/read back to [id number] and confirmed on 12/08/2024 07:30 ABG Number of Draw Attempts 1 FIO2 Blood Gas Temperature Corrected Results No No Glucose, Nova Meter Status: Abnormal Collection Time: 12/08/24 10:57 AM Result Value Ref Range POC-GLUCOSE 191 (H) 70 - 110 mg/dL Liner Checker [id number] Glucose, Nova Meter Status: Abnormal Collection Time: 12/08/24 3:34 PM Result Value Ref Range POC-GLUCOSE 159 (H) 70 - 110 mg/dL Liner Checker [id number] Glucose, Nova Meter Status: Abnormal Collection Time: 12/08/24 8:08 PM Result Value Ref Range POC-GLUCOSE 172 (H) 70 - 110 mg/dL Liner Checker [id number] Basic Metabolic Panel Status: Abnormal Collection Time: [...] POC-GLUCOSE 148 (H) 70 - 110 mg/dL Liner Checker [id number] Radiology Radiology Results (last day) No results found for the last 24 hours. Microbiology: Microbiology Results (last 7 days) Procedure Component Value Units Date/Time Fungus Culture W/ROSA MARIA Or Nimisha Ink [[id number]] Collected: 11/30/24 1603 Order Status: Completed Specimen: Peritoneal Fluid from Body Fluid Updated: 12/07/24 1700 Result No fungus isolated at 1 week. ROSA MARIA Prep No fungal elements seen Narrative: Specimen Description: peritoneal fluid AFB Culture And Stain [[id number]] Collected: 11/30/24 1603 Order Status: Completed Specimen: Peritoneal Fluid from Body Fluid Updated: 12/07/24 1700 Result No Acid Fast Bacilli isolated at 1 week. AFB Smear No acid fast bacilli seen Narrative: Specimen Description: peritoneal fluid Anaerobic Culture [[id number]] Collected: 11/30/24 1603 Order Status: Completed Specimen: Peritoneal Fluid from Body Fluid Updated: 12/05/24 0634 Result No Anaerobic growth Narrative: Specimen Description: peritoneal fluid Blood Culture [[id number]] Collected: 11/30/24 0340 Order Status: Completed Specimen: Blood from Arm, Left Updated: 12/05/24 0501 Result No growth in 5 days Blood Culture [[id number]] Collected: 11/30/24 0342 Order Status: Completed Specimen: Blood from Arm, Right Updated: 12/05/24 0501 Result No growth in 5 days Body Fluid Culture + Gram Stain [[id number]] Collected: 11/30/24 1603 Order Status: Completed Specimen: Peritoneal Fluid from Body Fluid Updated: 12/03/24 0907 Result No growth Gram Stain Result No organisms seen No cells seen Narrative: Specimen Description: peritoneal fluid Body Fluid/CSF - Path Review () [[id number]] Collected: 11/30/24 160 Order Status: Completed Specimen: [...] to continue with albumin/diuretics no indication for OPTOMETRY TEACHER No significant pleural effusion for thoracentesis If needed repeat chest x-ray. Otherwise continue diuresis Pulmonary twill follow . If ABG not improving ,or worsening mental status recommended ICU Case discussed during round. I have personally evaluated the patient and performed a pxpk-rq-qbtl diagnostic evaluation on this patient; I have reviewed history, performed physical examination, reviewed laboratory studies. , andreviewed images independent of radiologist. I have actively directed the medical care, formulated assessemnt and plan of care. Patient requires a high complexity of decision making for assessment. 34 minutes critical care time was spent. Voice superintendent electric power technology ([employer]) is used for dictation of this note and sound-alike words might be erroneously placed despite reviewing the note for accuracy.Errors in dictation may reflect use of voice recognition software and not all errors in superintendent electric power may have been detectedprior to signing * [...] Readiness for SNF - Bed Offer with [facility] Discharge Plan Progress Note SW/MANGO updated Rama T with [facility] regarding patient's ICU transfer cancellation.CM to follow up with Rama on 12/09 with updated PT/OT notes, MD progress notes of patients care, BiPaP/RT plan. [facility] is still [facility] bed for patient. Precert will be needed, [facility]. JOSE MANUEL/MANGO has attempted to call patient's sister, Jojo Dominguez x3 times, at # listed, , however, CM is experiencing phone issues and unable to call out. CM has informed bedside RN and TIRE FIXER via [employer]. KENNEY Zaragoza * KENNEY Zaragoza - 12/08/2024 1:29 PM EDTSummary: CM Assessment Care Coordination Initial Assessment Patient's readmit score is low at 12%. CM plan was to DC home/independent at baseline or with family/sister assistance. Sister, Jojo, stated she cannot care for patient if patient was to come homewith her, and patient needed rehab. CM sent referrals, patient had bed offers, [facility] offered bed first and [...] Transition Needs Expected Discharge Date: Off Track [facility] - 12/10-12/12 Home or Post Acute Services Needed: (P) Post acute facilities (Rehab/SNF/etc) Does the patient have the ability to fill and receive their discharge medications: (P) Yes Discharge plan discussed: (P) The discharge plan was discussed with patient medical sales representative. Discharge Barriers: (P) Test(s) Pending, Activity Type of Assistive Devices Needed for Discharge: (P) None Patient Discharge Goal: (P) Inpatient Rehab Facility, Assisted Facility Mandated Reporting: (P) Not applicable PT/OT/LEAN CONSULTANT Recommendations PT Recommendations: Pending Hospital Stay OT Recommendations: Pending Hospital Stay LEAN CONSULTANT Recommendations: NA 12/08/24 1327 Home Environment Type [...] Assistive Devices Walker;Commode Current Lines, Tubes 3L/min [place] Special/Community Services Transport, discharge;Home, assistance Transition Needs Home or Post Acute Services Post acute facilities (Rehab/SNF/etc) Type of Post Acute Facility Services [facility];Rehab Does the patient have the ability to fill and receive their discharge medications? Yes Discharge Plan Discussed The discharge plan was discussed with patient medical sales representative. Discharge Plan Outcome Patient/family medical sales representative agrees with the discharge plan Discharge Barriers Test(s) Pending;Activity Type of Assistive Devices Needed for Discharge None Patient Discharge Goal Inpatient Rehab Facility;Assisted Facility Mandated Reporting Not applicable KENNEY Zaragoza * Deysi Foss MD - 12/08/2024 11:29 AM EDT EP progress note Patient Name: Mary Coronel Admission Date: 11/30/2024 Primary Care Provider: JACKIE Find-a-Doc Chief Complaint/Reason for Consult: No chief complaint on file. History of Present Illness: Mary Coronel is a 64 y.o. female, admitted on: 11/30/2024 1:43 AM. presented to [facility] with swollen abdomen, abdominal discomfort and [...] Culture And Stain AFB Culture And Stain [facility] Non-Ointment Mill Tender Cytology [facility] Non-Ointment Mill Tender Cytology DIFFERENTIAL, BODY FLUID DIFFERENTIAL, BODY FLUID Body Fluid/CSF - Path Review () Body Fluid/CSF - Path Review () [facility] BONE MARROW SMEAR, ASPIRATION, AND STAIN [facility] BONE MARROW SMEAR, ASPIRATION, AND STAIN [...] BODY REMOVAL; Surgeon: Scott Daley MD; Location: [facility]; Service: Gastroenterology; Laterality: N/A; Allergies: [...] Normal range of motion. Integumentary: Warm, Dry, [place]. Neurologic: No obvious focal deficit Psychiatric: Cooperative, Appropriate mood & affect. Labs, Imaging, and Other Studies: Echo Results (last 7 days) Procedure Component Value Units Date/Time ECHO COMPLETE (DOPPLER / COLOR) W OR WO CONTRAST [[id number]] Collected: 11/30/24724 Order Status: Completed Updated: 11/30/24 1046 Narrative: TRANSTHORACIC ECHOCARDIOGRAPHY REPORT Demographics Patient Name: RIN JONES : 1960 Age: 64 year(s) Corporate ID Number: [id number] Gender Female Order Processing Clerk: Giovanna Rock Height: 67 inches [facility] Referring Physician: HUEY HURTADO Weight: 225 [...] 1.35 m/s E/A ratio: 0.97 m/s Volume ymvfvemdv265.99 LV length: 8.51 cm ml Volume hjfelzfx47.96 ml LVOT diameter: 1.79 cm Normal sized [...] Valve TR velocity: 2.51 m/s TR gradient: 25.02224 mmHg Estimated RAP: 3 mmHg RVSP: 28.12 [...] (DOPPLER / COLOR) W OR WO CONTRAST [[id number]] Collected: 11/30/24724 Order Status: Completed Updated: 11/30/24 1046 Narrative: TRANSTHORACIC ECHOCARDIOGRAPHY REPORT Demographics Patient Name: RIN JONES : 1960 Age: 64 year(s) Corporate ID Number: [id number] Gender Female Order Processing Clerk: Giovanna Rock Height: 67 inches [facility] Referring Physician: HUEY HURTADO Weight: 225 pounds Interpreting JESSICA RAYMOND MD BMI: 35.24 kg/m^2 Physician: Date of Service: 11/30/2024 Blood Pressure: 118/59 mmHg Room Number: 579 Type of Study: TTE procedure: ECHO COMPLETE (DOPPLER / COLOR) W OR WO CONTRAST. Patient Status: Routine IP [facility]quate [facility] History/Tech Notes: Indication: [...] 1.35 m/s E/A ratio: 0.97 m/s Volume vfybxqeob560.99 LV length: 8.51 cm ml Volume jqjqrpug39.96 ml LVOT diameter: 1.79 cm Normal sized [...] Valve TR velocity: 2.51 m/s TR gradient: 25.09201 mmHg Estimated RAP: 3 mmHg RVSP: 28.12 [...] imaging. Assessment and Plan: *Paroxysmal Atrial Fib [id number] of 3 to 4 also have some [...] Patient cannot take anticoagulation for A-fib despite [id number] because of multiple issue including GI bleeding [...] course, and response to therapy. * Mercytj Ben, OTR/L - 12/08/2024 10:42 AM EDT Images [...] BODY REMOVAL; Surgeon: Scott Daley MD; Location: [facility]; Service: Gastroenterology; Laterality: N/A; General [...] 12.0 - 18.0 g/dL PaO2/FIO2 calculated 203.0 [facility] COLLECTION SITE Right Radial Arterial Puncture Yes Blood Gas PT Temperature C 37.0 Sen's Test Acceptable Critical Values Notification Critical Blood gas called to TRAY LORENZ RN . [place] [id number] and confirmed on 12/07/2024 10:51 ABG Number of Draw Attempts 1 FIO2 21.0 Blood Gas Temperature Corrected Results No No Glucose, Nova Meter Status: Abnormal Collection Time: 12/07/24 10:54 AM Result Value Ref Range POC-GLUCOSE 146 (H) 70 - 110 mg/dL Liner Checker [id number] Blood gas, arterial Status: Abnormal Collection Time: [...] ARTERIAL 8.9 (L) 12.0 - 18.0 g/dL [facility] COLLECTION SITE Right Radial Arterial Puncture Yes Blood Gas O2 Delivery Device Cannula Oxygen Flow Rate 2 Blood Gas PT Temperature C 37.0 Sen's Test Unacceptable Vent Mode Other Critical Values Notification Critical Blood gas called to DR MALAGON . [place] [id number] and confirmed on 12/07/2024 14:14 ABG Number of Draw Attempts 1 Performed by: CD FIO2 Blood Gas Temperature Corrected Results No No Glucose, Nova Meter Status: Abnormal Collection Time: 12/07/24 3:39 PM Result Value Ref Range POC-GLUCOSE 159 (H) 70 - 110 mg/dL Liner Checker [id number] ABG Status: Abnormal Collection Time: 12/07/24 4:21 [...] 12.0 - 18.0 g/dL PaO2/FIO2 calculated 359.0 [facility] COLLECTION SITE Right Brachial Arterial Puncture Yes Blood Gas O2 Delivery Device NIV Blood Gas PT Temperature C 37.0 Sen's Test Not Applicable Critical Values Notification Critical Blood gas called to SEB LORENZ RN . Results acknowledged/read back to [id number] and confirmed on 12/07/2024 16:42 ABG Number of Draw Attempts 2 Set Rate 16.0 IPAP 10 EPAP 6 FIO2 50.0 Blood Gas Temperature Corrected Results No No Glucose, Nova Meter Status: Abnormal Collection Time: 12/07/24 7:54 PM Result Value Ref Range POC-GLUCOSE 164 (H) 70 - 110 mg/dL Liner Checker [id number] Basic Metabolic Panel Status: Abnormal Collection Time: [...] POC-GLUCOSE 136 (H) 70 - 110 mg/dL Liner Checker [id number] Blood gas, arterial Status: Abnormal Collection Time: [...] ARTERIAL 8.8 (L) 12.0 - 18.0 g/dL [facility] COLLECTION SITE Right Brachial Arterial Puncture Yes Blood Gas O2 Delivery Device Cannula Oxygen Flow Rate 4 Blood Gas PT Temperature C 37.0 Sen's Test Not Applicable Critical Values Notification Critical Blood gas called to KNOWN CONDITION . Results acknowledged/read back to [id number] and confirmed on 12/08/2024 07:30 ABG Number [...] Pending blood gas improvement And more awake internet manager working discharge plan * Hill Boo [...] Ext: +++ Pedal edema , no cyanosis REPAIR ARMATURE WINDER: Alert, No focal deficit noted grossly Psy: Cooperative Labs: Results for orders placed or performed during the hospital encounter of 11/30/24 (from the past 24 hours) ECG 12 lead Status: None Collection Time: 12/07/24 10:29 AM Result Value Ref Range VENTRICULAR RATE EKG/MIN 91 BPM ATRIAL RATE (MCT) 91 BPM AL Interval 142 ms QRS-INTERVAL (MSEC) 88 ms QT Interval 376 ms QTC Interval 462 ms P [place] 39 degrees R AXIS (MCT) -3 degrees T Wave [place] 4 degrees [place] Diagnosis Normal sinus rhythm Nonspecific T wave [...] 12.0 - 18.0 g/dL PaO2/FIO2 calculated 203.0 [facility] COLLECTION SITE Right Radial Arterial Puncture Yes Blood Gas PT Temperature C 37.0 Sen's Test Acceptable Critical Values Notification Critical Blood gas called to TRAY LORENZ RN . [place] [id number] and confirmed on 12/07/2024 10:51 ABG Number of Draw Attempts 1 FIO2 21.0 Blood Gas Temperature Corrected Results No No Glucose, Nova Meter Status: Abnormal Collection Time: 12/07/24 10:54 AM Result Value Ref Range POC-GLUCOSE 146 (H) 70 - 110 mg/dL Liner Checker [id number] Blood gas, arterial Status: Abnormal Collection Time: [...] ARTERIAL 8.9 (L) 12.0 - 18.0 g/dL [facility] COLLECTION SITE Right Radial Arterial Puncture Yes Blood Gas O2 Delivery Device Cannula Oxygen Flow Rate 2 Blood Gas PT Temperature C 37.0 Sen's Test Unacceptable Vent Mode Other Critical Values Notification Critical Blood gas called to DR MALAGON . Results [place] [phone] and confirmed on 12/07/2024 14:14 ABG Number of Draw Attempts 1 Performed by: CD FIO2 Blood Gas Temperature Corrected Results No No Glucose, Nova Meter Status: Abnormal Collection Time: 12/07/24 3:39 PM Result Value Ref Range POC-GLUCOSE 159 (H) 70 - 110 mg/dL Liner Checker [id number] ABG Status: Abnormal Collection Time: 12/07/24 4:21 [...] 12.0 - 18.0 g/dL PaO2/FIO2 calculated 359.0 [facility] COLLECTION SITE Right Brachial Arterial Puncture Yes Blood Gas O2 Delivery Device NIV Blood Gas PT Temperature C 37.0 Sen's Test Not Applicable Critical Values Notification Critical Blood gas called to SEB LORENZ RN . Results acknowledged/read back to [id number] and confirmed on 12/07/2024 16:42 ABG Number of Draw Attempts 2 Set Rate 16.0 IPAP 10 EPAP 6 FIO2 50.0 Blood Gas Temperature Corrected Results No No Glucose, Nova Meter Status: Abnormal Collection Time: 12/07/24 7:54 PM Result Value Ref Range POC-GLUCOSE 164 (H) 70 - 110 mg/dL Liner Checker [id number] Basic Metabolic Panel Status: Abnormal Collection Time: [...] POC-GLUCOSE 136 (H) 70 - 110 mg/dL Liner Checker [id number] Blood gas, arterial Status: Abnormal Collection Time: [...] ARTERIAL 8.8 (L) 12.0 - 18.0 g/dL [facility] COLLECTION SITE Right Brachial Arterial Puncture Yes Blood Gas O2 Delivery Device Cannula Oxygen Flow Rate 4 Blood Gas PT Temperature C 37.0 Sen's Test Not Applicable Critical Values Notification Critical Blood gas called to KNOWN CONDITION . Results acknowledged/read back to [id number] and confirmed on 12/08/2024 07:30 ABG Number [...] renal function - No emergent need of OPTOMETRY TEACHER - Monitor H/H and transfuse for Hgb [...] history as below. She initially presented to [facility] with swollen abdomen, abdominal discomfort, and bilateral lower extremity pain. Her creatinine was elevated and as a result, she was transferred to [facility] ([place], [place]) for he patorenal syndrome. Upon arrival here, [...] BODY REMOVAL; Surgeon: Scott Daley MD; Location: [facility]; Service: Gastroenterology; Laterality: N/A; Allergies: [...] 91 BPM ATRIAL RATE (MCT) 91 BPM AL Interval 142 ms QRS-INTERVAL (MSEC) 88 ms QT Interval 376 ms QTC Interval 462 ms P [place] 39 degrees R AXIS (MCT) -3 degrees T Wave [place] 4 degrees [place] Diagnosis Normal sinus rhythm Nonspecific T wave [...] 12.0 - 18.0 g/dL PaO2/FIO2 calculated 203.0 [facility] COLLECTION SITE Right Radial Arterial Puncture Yes Blood Gas PT Temperature C 37.0 Sen's Test Acceptable Critical Values Notification Critical Blood gas called to TRAY LORENZ RN . [place] [id number] and confirmed on 12/07/2024 10:51 ABG Number of Draw Attempts 1 FIO2 21.0 Blood Gas Temperature Corrected Results No No Glucose, Nova Meter Status: Abnormal Collection Time: 12/07/24 10:54 AM Result Value Ref Range POC-GLUCOSE 146 (H) 70 - 110 mg/dL Liner Checker [id number] Blood gas, arterial Status: Abnormal Collection Time: [...] ARTERIAL 8.9 (L) 12.0 - 18.0 g/dL [facility] COLLECTION SITE Right Radial Arterial Puncture Yes Blood Gas O2 Delivery Device Cannula Oxygen Flow Rate 2 Blood Gas PT Temperature C 37.0 Sen's Test Unacceptable Vent Mode Other Critical Values Notification Critical Blood gas called to DR MALAGON . [place] [id number] and confirmed on 12/07/2024 14:14 ABG Number of Draw Attempts 1 Performed by: CD FIO2 Blood Gas Temperature Corrected Results No No Glucose, Nova Meter Status: Abnormal Collection Time: 12/07/24 3:39 PM Result Value Ref Range POC-GLUCOSE 159 (H) 70 - 110 mg/dL Liner Checker [id number] ABG Status: Abnormal Collection Time: 12/07/24 4:21 [...] 12.0 - 18.0 g/dL PaO2/FIO2 calculated 359.0 [facility] COLLECTION SITE Right Brachial Arterial Puncture Yes Blood Gas O2 Delivery Device NIV Blood Gas PT Temperature C 37.0 Sen's Test Not Applicable Critical Values Notification Critical Blood gas called to SEB LORENZ RN . Results acknowledged/read back to [id number] and confirmed on 12/07/2024 16:42 ABG Number of Draw Attempts 2 Set Rate 16.0 IPAP 10 EPAP 6 FIO2 50.0 Blood Gas Temperature Corrected Results No No Glucose, Nova Meter Status: Abnormal Collection Time: 12/07/24 7:54 PM Result Value Ref Range POC-GLUCOSE 164 (H) 70 - 110 mg/dL Liner Checker [id number] Basic Metabolic Panel Status: Abnormal Collection Time: [...] POC-GLUCOSE 136 (H) 70 - 110 mg/dL Liner Checker [id number] Blood gas, arterial Status: Abnormal Collection Time: [...] ARTERIAL 8.8 (L) 12.0 - 18.0 g/dL [facility] COLLECTION SITE Right Brachial Arterial Puncture Yes Blood Gas O2 Delivery Device Cannula Oxygen Flow Rate 4 Blood Gas PT Temperature C 37.0 Sen's Test Not Applicable Critical Values Notification Critical Blood gas called to KNOWN CONDITION . Results acknowledged/read back to [id number] and confirmed on 12/08/2024 07:30 ABG Number of Draw Attempts 1 FIO2 Blood Gas Temperature Corrected Results No No Radiology Radiology Results (last day) Procedure Component Value Units Date/Time XR chest AP portable [[id number]] Collected: 12/07/24 155 Order Status: Completed Updated: 12/07/24 1646 Narrative: [...] Fungus Culture W/ROSA MARIA Or Nimisha Ink [[id number]] Collected: 11/30/24 1603 Order Status: Completed Specimen: Peritoneal Fluid from Body Fluid Updated: 12/07/24 170 Result No fungus isolated at 1 week. ROSA MARIA Prep No fungal elements seen Narrative: Specimen Description: peritoneal fluid AFB Culture And Stain [[id number]] Collected: 11/30/24 1603 Order Status: Completed Specimen: Peritoneal Fluid from Body Fluid Updated: 12/07/24 170 Result No Acid Fast Bacilli isolated at 1 week. AFB Smear No acid fast bacilli seen Narrative: Specimen Description: peritoneal fluid Anaerobic Culture [[id number]] Collected: 11/30/24 1603 Order Status: Completed Specimen: Peritoneal Fluid from Body Fluid Updated: 12/05/24 0634 Result No Anaerobic growth Narrative: Specimen Description: peritoneal fluid Blood Culture [[id number]] Collected: 11/30/24 0340 Order Status: Completed Specimen: Blood from Arm, Left Updated: 12/05/24 0501 Result No growth in 5 days Blood Culture [[id number]] Collected: 11/30/24 0342 Order Status: Completed Specimen: Blood from Arm, Right Updated: 12/05/24 0501 Result No growth in 5 days Body Fluid Culture + Gram Stain [[id number]] Collected: 11/30/24 1603 Order Status: Completed Specimen: Peritoneal Fluid from Body Fluid Updated: 12/03/24 0907 Result No growth Gram Stain Result No organisms seen No cells seen Narrative: Specimen Description: peritoneal fluid Body Fluid/CSF - Path Review () [[id number]] Collected: 11/30/24 1603 Order Status: Completed Specimen: [...] to continue with albumin/diuretics no indication for OPTOMETRY TEACHER No significant pleural effusion for thoracentesis If needed repeat chest x-ray. Otherwise continue diuresis Pulmonary twill follow . If ABG not improving ,or worsening mental status recommended ICU Case discussed during round. I have personally evaluated the patient and performed a ptlr-kw-txkq diagnostic evaluation on this patient; I have reviewed history, performed physical examination, reviewed laboratory studies. , andreviewed images independent of radiologist. I have actively directed the medical care, formulated assessemnt and plan of care. Patient requires a high complexity of decision making for assessment. 34 minutes critical care time was spent. Voice superintendent electric power technology ([employer]) is used for dictation of this note and sound-alike words might be erroneously placed despite reviewing the note for accuracy.Errors in dictation may reflect use of voice recognition software and not all errors in superintendent electric power may have been detectedprior to signing * [...] admitted on: 11/30/2024 1:43 AM. presented to [facility] with swollen abdomen, abdominal discomfort and [...] Culture And Stain AFB Culture And Stain [facility] Non-Ointment Mill Tender Cytology [facility] Non-Ointment Mill Tender Cytology DIFFERENTIAL, BODY FLUID DIFFERENTIAL, BODY FLUID Body Fluid/CSF - Path Review () Body Fluid/CSF - Path Review () [facility] BONE MARROW SMEAR, ASPIRATION, AND STAIN [facility] BONE MARROW SMEAR, ASPIRATION, AND STAIN [...] BODY REMOVAL; Surgeon: Scott Daley MD; Location: [facility]; Service: Gastroenterology; Laterality: N/A; Allergies: [...] Normal range of motion. Integumentary: Warm, Dry, [place]. Neurologic: No obvious focal deficit Psychiatric: Cooperative, Appropriate mood & affect. Labs, Imaging, and Other Studies: Echo Results (last 7 days) Procedure Component Value Units Date/Time ECHO COMPLETE (DOPPLER / COLOR) W OR WO CONTRAST [[id number]] Collected: 11/30/2425 Order Status: Completed Updated: 11/30/24 104 Narrative: TRANSTHORACIC ECHOCARDIOGRAPHY REPORT Demographics Patient Name: RIN JONES : 1960 Age: 64 year(s) Corporate ID Number: [id number] Gender Female Order Processing Clerk: Giovanna Rock Height: 67 inches [facility] Referring Physician: HUEY HURTADO Weight: 225 [...] 1.35 m/s E/A ratio: 0.97 m/s Volume pnujnwech877.99 LV length: 8.51 cm ml Volume .96 [...] Valve TR velocity: 2.51 m/s TR gradient: 25.89823 mmHg Estimated RAP: 3 mmHg RVSP: 28.12 [...] (DOPPLER / COLOR) W OR WO CONTRAST [[id number]] Collected: 11/30/24724 Order Status: Completed Updated: 11/30/24 104 Narrative: TRANSTHORACIC ECHOCARDIOGRAPHY REPORT Demographics Patient Name: RIN JONES : 1960 Age: 64 year(s) Corporate ID Number: [id number] Gender Female Order Processing Clerk: Giovanna Rock Height: 67 inches [facility] Referring Physician: HUEY HURTADO Weight: 225 pounds Interpreting JESSICA RAYMOND MD BMI: 35.24 kg/m^2 Physician: Date of Service: 11/30/2024 Blood Pressure: 118/59 mmHg Room Number: 579 Type of Study: TTE procedure: ECHO COMPLETE (DOPPLER / COLOR) W OR WO CONTRAST. Patient Status: Routine IP Study Location: [facility] Quality: Adequate visualization History/Tech Notes: [...] 1.35 m/s E/A ratio: 0.97 m/s Volume skebwdsfx822.99 LV length: 8.51 cm ml Volume fsjdeonc06.96 ml LVOT diameter: 1.79 cm Normal sized [...] Valve TR velocity: 2.51 m/s TR gradient: 25.48601 mmHg Estimated RAP: 3 mmHg RVSP: 28.12 [...] imaging. Assessment and Plan: *Paroxysmal Atrial Fib [id number] of 2 also have some wide-complex tachycardia [...] 90 BPM ATRIAL RATE (MCT) 90 BPM AL Interval 142 ms QRS-INTERVAL (MSEC) 92 ms QT Interval 378 ms QTC Interval 462 ms P [place] 28 degrees R AXIS (MCT) -4 degrees T Wave [place] 21 degrees [place] Diagnosis Normal sinus rhythm Septal infarct , age undetermined Abnormal ECG When compared with ECG of 04-DEC-2024 20:08, Septal infarct is now present Nonspecific T wave abnormality no longer evident in Anterior leads Glucose, Nova Meter Status: Abnormal Collection Time: 12/06/24 4:06 PM Result Value Ref Range POC-GLUCOSE 134 (H) 70 - 110 mg/dL Liner Checker [id number] Glucose, Nova Meter Status: Abnormal Collection Time: 12/06/24 7:26 PM Result Value Ref Range POC-GLUCOSE 170 (H) 70 - 110 mg/dL Liner Checker [id number] CBC - Hemogram (SJ-BKR) Status: Abnormal Collection [...] POC-GLUCOSE 159 (H) 70 - 110 mg/dL Liner Checker [id number] ECG 12 lead Status: None (In process) Collection Time: 12/07/24 10:29 AM Result Value Ref Range VENTRICULAR RATE EKG/MIN 91 BPM ATRIAL RATE (MCT) 91 BPM AL Interval 142 ms QRS-INTERVAL (MSEC) 88 ms QT Interval 376 ms QTC Interval 462 ms P [place] 39 degrees R AXIS (MCT) -3 degrees T Wave [place] 4 degrees [place] Diagnosis Normal sinus rhythm Nonspecific T wave abnormality Abnormal ECG When compared with ECG of 06-DEC-2024 13:16, No significant change was found Glucose, Nova Meter Status: Abnormal Collection Time: 12/07/24 10:54 AM Result Value Ref Range POC-GLUCOSE 146 (H) 70 - 110 mg/dL Liner Checker [id number] XR chest AP portable Narrative: PORTABLE CHEST; [...] ordered Need to be transferred to ICU internet manager working discharge plan * Lian Dominguez [...] Orientation: Anterior;Left Site Assessment Red;Yellow Olinda-Wound Assessment [place] Odor None Pressure Injury Stage 2 Wound care performing NDNQI rounds. Patient on JORJE surface, agreeable to assessment. During head totoe skin inspection a MDRPI found on patients left anterior thigh due to urinary catheter tubing. MDRPI verified by second wound care team assistant. [facility] RN recommends cleansing site with NS, [...] Ext: +++ Pedal edema , no cyanosis REPAIR ARMATURE WINDER: Alert, No focal deficit noted grossly Psy: Cooperative Labs: Results for orders placed or performed during the hospital encounter of 11/30/24 (from the past 24 hours) Glucose, Nova Meter Status: Abnormal Collection Time: 12/06/24 10:36 AM Result Value Ref Range POC-GLUCOSE 150 (H) 70 - 110 mg/dL Liner Checker [id number] ECG 12 lead Status: None (In process) Collection Time: 12/06/24 1:16 PM Result Value Ref Range VENTRICULAR RATE EKG/MIN 90 BPM ATRIAL RATE (MCT) 90 BPM AL Interval 142 ms QRS-INTERVAL (MSEC) 92 ms QT Interval 378 ms QTC Interval 462 ms P [place] 28 degrees R AXIS (MCT) -4 degrees T Wave [place] 21 degrees [place] Diagnosis Normal sinus rhythm Septal infarct , age undetermined Abnormal ECG When compared with ECG of 04-DEC-2024 20:08, Septal infarct is now present Nonspecific T wave abnormality no longer evident in Anterior leads Glucose, Nova Meter Status: Abnormal Collection Time: 12/06/24 4:06 PM Result Value Ref Range POC-GLUCOSE 134 (H) 70 - 110 mg/dL Liner Checker [id number] Glucose, Nova Meter Status: Abnormal Collection Time: 12/06/24 7:26 PM Result Value Ref Range POC-GLUCOSE 170 (H) 70 - 110 mg/dL Liner Checker [id number] CBC - Hemogram (SJ-BKR) Status: Abnormal Collection [...] POC-GLUCOSE 159 (H) 70 - 110 mg/dL Liner Checker [id number] XR chest AP portable Narrative: PORTABLE CHEST; [...] for GFR - No emergent need of OPTOMETRY TEACHER - Monitor H/H and transfuse for Hgb [...] Coronel Admission Date: 11/30/2024 Primary Care Provider: [facility] Find-a-Doc Chief Complaint/Reason for Consult: No chief complaint on file. History of Present Illness: Mary Coronel is a 64 y.o. female, admitted on: 11/30/2024 1:43 AM. presented to [facility] with swollen abdomen, abdominal discomfort and [...] Culture And Stain AFB Culture And Stain [facility] Non-Ointment Mill Tender Cytology [facility] Non-Ointment Mill Tender Cytology DIFFERENTIAL, BODY FLUID DIFFERENTIAL, BODY FLUID Body Fluid/CSF - Path Review () Body Fluid/CSF - Path Review () [facility] BONE MARROW SMEAR, ASPIRATION, AND STAIN [facility] BONE MARROW SMEAR, ASPIRATION, AND STAIN [...] BODY REMOVAL; Surgeon: Scott Daley MD; Location: [facility]; Service: Gastroenterology; Laterality: N/A; Allergies: [...] Normal range of motion. Integumentary: Warm, Dry, [place]. Neurologic: No obvious focal deficit Psychiatric: Cooperative, Appropriate mood & affect. Labs, Imaging, and Other Studies: Echo Results (last 7 days) Procedure Component Value Units Date/Time ECHO COMPLETE (DOPPLER / COLOR) W OR WO CONTRAST [[id number]] Collected: 11/30/24 8286 Order Status: Completed Updated: 11/30/24 1041 Narrative: TRANSTHORACIC ECHOCARDIOGRAPHY REPORT Demographics Patient Name: RIN JONES : 1960 Age: 64 year(s) Corporate ID Number: [id number] Gender Female Order Processing Clerk: Giovanna Rock Height: [address] Referring [...] 1.35 m/s E/A ratio: 0.97 m/s Volume bwvsyeupd893.99 LV length: 8.51 cm ml Volume mhjothgp64.96 ml LVOT diameter: 1.79 cm Normal sized [...] Valve TR velocity: 2.51 m/s TR gradient: 25.53826 mmHg Estimated RAP: 3 mmHg RVSP: 28.12 [...] (DOPPLER / COLOR) W OR WO CONTRAST [[id number]] Collected: 11/30/24724 Order Status: Completed Updated: 11/30/24 104 Narrative: TRANSTHORACIC ECHOCARDIOGRAPHY REPORT Demographics Patient Name: RIN JONES : 1960 Age: 64 year(s) Corporate ID Number: [id number] Gender Female Order Processing Clerk: Giovanna Rock Height: 67 inches [facility] Referring Physician: HUEY HURTADO Weight: 225 pounds Interpreting JESSICA RAYMOND MD BMI: 35.24 kg/m^2 Physician: Date of Service: 11/30/2024 Blood Pressure: 118/59 mmHg Room Number: 579 Type of Study: TTE procedure: ECHO COMPLETE (DOPPLER / COLOR) W OR WO CONTRAST. Patient Status: Routine IP Study Location: [facility] Quality: Adequate visualization History/Tech Notes: [...] 1.35 m/s E/A ratio: 0.97 m/s Volume aboktqoga777.99 LV length: 8.51 cm ml Volume pcojbkrq64.96 ml LVOT diameter: 1.79 cm Normal sized [...] Valve TR velocity: 2.51 m/s TR gradient: 25.67145 mmHg Estimated RAP: 3 mmHg RVSP: 28.12 [...] imaging. Assessment and Plan: *Paroxysmal Atrial Fib [id number] of 2 also have some wide-complex tachycardia [...] POC-GLUCOSE 140 (H) 70 - 110 mg/dL Liner Checker [id number] Glucose, Nova Meter Status: Abnormal Collection Time: 12/05/24 7:21 PM Result Value Ref Range POC-GLUCOSE 145 (H) 70 - 110 mg/dL Liner Checker [id number] CBC - Hemogram (SJ-BKR) Status: Abnormal Collection [...] POC-GLUCOSE 143 (H) 70 - 110 mg/dL Liner Checker [id number] Glucose, Nova Meter Status: Abnormal Collection Time: 12/06/24 10:36 AM Result Value Ref Range POC-GLUCOSE 150 (H) 70 - 110 mg/dL Liner Checker [id number] ECG 12 lead Status: None (In process) Collection Time: 12/06/24 1:16 PM Result Value Ref Range VENTRICULAR RATE EKG/MIN 90 BPM ATRIAL RATE (MCT) 90 BPM AL Interval 142 ms QRS-INTERVAL (MSEC) 92 ms QT Interval 378 ms QTC Interval 462 ms P [place] 28 degrees R AXIS (MCT) -4 degrees T Wave [place] 21 degrees [place] Diagnosis Normal sinus rhythm Septal infarct , [...] OT Monitor kidney function No emergent dialysis internet manager consulted Discharge Planning: Patient can be [...] Ext: +++ Pedal edema , no cyanosis REPAIR ARMATURE WINDER: Alert, No focal deficit noted grossly Psy: Cooperative Labs: Results for orders placed or performed during the hospital encounter of 11/30/24 (from the past 24 hours) Glucose, Nova Meter Status: Abnormal Collection Time: 12/05/24 10:23 AM Result Value Ref Range POC-GLUCOSE 141 (H) 70 - 110 mg/dL Liner Checker [id number] Hemoglobin Status: Abnormal Collection Time: 12/05/24 3:36 PM Result Value Ref Range Hemoglobin 8.1 (L) 11.2 - 15.7 GM/DL Glucose, Nova Meter Status: Abnormal Collection Time: 12/05/24 5:01 PM Result Value Ref Range POC-GLUCOSE 140 (H) 70 - 110 mg/dL Liner Checker [id number] Glucose, Nova Meter Status: Abnormal Collection Time: 12/05/24 7:21 PM Result Value Ref Range POC-GLUCOSE 145 (H) 70 - 110 mg/dL Liner Checker [id number] CBC - Hemogram (-BK) Status: Abnormal Collection [...] POC-GLUCOSE 143 (H) 70 - 110 mg/dL Liner Checker [id number] XR chest AP portable Narrative: PORTABLE CHEST [...] for GFR - No emergent need of OPTOMETRY TEACHER - Monitor H/H and transfuse for Hgb less than 7.0 - Serologic workup pending Discussed with patient * Blanka Malagon MD - 12/06/2024 8:20 AM EDT Images from the original note were not included. PULMONARY AND CRITICAL CARE Consult Note Date of Service: 12/06/2024 HPI: This is a 64 y.o. year old female with past medical history as below. She initially presented to [facility] with swollen abdomen, abdominal discomfort, and bilateral lower extremity pain. Her creatinine was elevated and as a result, she was transferred to [facility] ([place], [place]) for he patorenal syndrome. Upon arrival here, [...] BODY REMOVAL; Surgeon: Scott Daley MD; Location: [facility]; Service: Gastroenterology; Laterality: N/A; Allergies: [...] POC-GLUCOSE 141 (H) 70 - 110 mg/dL Liner Checker [id number] Hemoglobin Status: Abnormal Collection Time: 12/05/24 3:36 PM Result Value Ref Range Hemoglobin 8.1 (L) 11.2 - 15.7 GM/DL Glucose, Nova Meter Status: Abnormal Collection Time: 12/05/24 5:01 PM Result Value Ref Range POC-GLUCOSE 140 (H) 70 - 110 mg/dL Liner Checker [id number] Glucose, Nova Meter Status: Abnormal Collection Time: 12/05/24 7:21 PM Result Value Ref Range POC-GLUCOSE 145 (H) 70 - 110 mg/dL Liner Checker [id number] CBC - Hemogram (-BKR) Status: Abnormal Collection [...] POC-GLUCOSE 143 (H) 70 - 110 mg/dL Liner Checker [id number] Radiology Radiology Results (last day) Procedure Component Value Units Date/Time XR chest AP portable [[id number]] Resulted: 12/06/24805 Order Status: Sent Updated: 12/06/24805 Microbiology: Microbiology Results (last 7 days) Procedure Component Value Units Date/Time Anaerobic Culture [[id number]] Collected: 11/30/24 1603 Order Status: Completed Specimen: Peritoneal Fluid from Body Fluid Updated: 12/05/24 0634 Result No Anaerobic growth Narrative: Specimen Description: peritoneal fluid Blood Culture [[id number]] Collected: 11/30/24 0340 Order Status: Completed Specimen: Blood from Arm, Left Updated: 12/05/24 0501 Result No growth in 5 days Blood Culture [[id number]] Collected: 11/30/24 0342 Order Status: Completed Specimen: Blood from Arm, Right Updated: 12/05/24 0501 Result No growth in 5 days Body Fluid Culture + Gram Stain [[id number]] Collected: 11/30/24 160 Order Status: Completed Specimen: Peritoneal Fluid from Body Fluid Updated: 12/03/24 0907 Result No growth Gram Stain Result No organisms seen No cells seen Narrative: Specimen Description: peritoneal fluid Body Fluid/CSF - Path Review () [[id number]] Collected: 11/30/24 160 Order Status: Completed Specimen: Peritoneal Fluid from Body Fluid Updated: 12/03/24 0654 SENT TO PATHOLOGY FOR REVIEW Yes Scan Result Mesothelial cells. MD German 12/02/2024 AFB Culture And Stain [[id number]] Collected: 11/30/24 160 Order Status: Completed Specimen: Peritoneal Fluid from Body Fluid Updated: 12/01/24 1410 AFB Smear No acid fast bacilli seen Narrative: Specimen Description: peritoneal fluid Glucose, body fluid [[id number]] Collected: 11/30/24 160 Order Status: Completed Specimen: Body Fluid from Peritoneal Fluid Updated: 12/01/24 0710 Glucose, Body Fluid 107 mg/dL BODY FLUID TYPE Peritoneal Narrative: This test has been modified from the curtain hemmer automatic's instructions and its performance characteristics were determined by the laboratory. The reference intervals and other method performance specifications are unavailable for this test. It is recommended to interpret body fluid concentrations in comparison with the corresponding serum or plasma concentrations and to integrate test results into the clinical context. Protein, body fluid [[id number]] Collected: 11/30/24 160 Order Status: Completed Specimen: Body Fluid from Peritoneal Fluid Updated: 12/01/24 0710 Protein, Fluid 1.9 g/dL BODY FLUID TYPE Peritoneal Narrative: This test has been modified from the curtain hemmer automatic's instructions and its performance characteristics were determined by the laboratory. The reference intervals and other method performance specifications are unavailable for this test. It is recommended to interpret body fluid concentrations in comparison with the corresponding serum or plasma concentrations and to integrate test results into the clinical context. Urine Culture [[id number]] Collected: 11/30/24 1135 Order Status: Completed Specimen: Urine, Clean Catch Updated: 12/01/24 0649 Result Recollect Specimen - 3 or more organisms suggests contamination Body fluid cell count with differential [[id number]] (Abnormal) Collected: 11/30/24 1603 Order Status: Completed [...] fluids are not defined. DIFFERENTIAL, BODY FLUID [[id number]] Collected: 11/30/241602 Order Status: Completed Specimen: Peritoneal Fluid from Body Fluid Updated: 11/30/24 2049 Neutrophils Fluid 5 % Lymphocytes Fluid 46 % Unidentified Mononuclear Cells BF 49 % Lactate dehydrogenase (LDH), body fluid [[id number]] Collected: 11/30/241602 Order Status: Completed Specimen: Peritoneal Fluid from Body Fluid Updated: 11/30/24 1819 LDH, Fluid 71 U/L BODY FLUID TYPE Peritoneal Narrative: This test has been modified from the curtain hemmer automatic's instructions and its performance characteristics were determined by the laboratory. The reference intervals and other method performance specifications are unavailable for this test. It is recommended to interpret body fluid concentrations in comparison with the corresponding serum or plasma concentrations and to integrate test results into the clinical context. Fungus Culture W/ROSA MARIA Or Nimisha Ink [[id number]] Collected: 11/30/241602 Order Status: Completed Specimen: Peritoneal Fluid from Body Fluid Updated: 11/30/24 1754 ROSA MARIA Prep No fungal elements seen Narrative: Specimen Description: peritoneal fluid Total Protein, Body Fluid(SENDOUT) [[id number]] Collected: 11/30/24 160 Order Status: Canceled Specimen: Peritoneal Fluid from Body Fluid Updated: 11/30/24 1634 Glucose Body Fluid(SENDOUT) [[id number]] Collected: 11/30/241602 Order Status: Canceled Specimen: Peritoneal Fluid from Body Fluid Updated: 11/30/24 1634 Urine Culture [[id number]] Collected: 11/30/24 1135 Order Status: Canceled Specimen: [...] to continue with albumin/diuretics no indication for OPTOMETRY TEACHER Oxygenation improved 3 L nasal cannula, leg [...] personally evaluated the patient and performed a ovyh-sy-fwjk diagnostic evaluation on this patient; I have reviewed history, performed physical examination, reviewed laboratory studies. , andreviewed images independent of radiologist. I have actively directed the medical care, formulated assessemnt and plan of care. Patient requires a high complexity of decision making for assessment. 46 minutes pulmonary care clinical time was spent. Voice superintendent electric power technology ([employer]) is used for dictation of this note and sound-alike words might be erroneously placed despite reviewing the note for accuracy.Errors in dictation may reflect use of voice recognition software and not all errors in superintendent electric power may have been detectedprior to signing * [...] Coronel Admission Date: 11/30/2024 Primary Care Provider: [facility] Find-a[facility]Doc Chief Complaint/Reason for Consult: No chief complaint on file. History of Present Illness: Mary Coronel is a 64 y.o. female, admitted on: 11/30/2024 1:43 AM. presented to [facility] with swollen abdomen, abdominal discomfort and [...] Culture And Stain AFB Culture And Stain [facility] Non-Ointment Mill Tender Cytology [facility] Non-Ointment Mill Tender Cytology DIFFERENTIAL, BODY FLUID DIFFERENTIAL, BODY FLUID Body Fluid/CSF - Path Review () Body Fluid/CSF - Path Review () [facility] BONE MARROW SMEAR, ASPIRATION, AND STAIN [facility] BONE MARROW SMEAR, ASPIRATION, AND STAIN [...] BODY REMOVAL; Surgeon: Scott Daley MD; Location: [facility]; Service: Gastroenterology; Laterality: N/A; Allergies: [...] Normal range of motion. Integumentary: Warm, Dry, [place]. Neurologic: No obvious focal deficit Psychiatric: Cooperative, Appropriate mood & affect. Labs, Imaging, and Other Studies: Echo Results (last 7 days) Procedure Component Value Units Date/Time ECHO COMPLETE (DOPPLER / COLOR) W OR WO CONTRAST [[id number]] Collected: 11/30/24724 Order Status: Completed Updated: 11/30/241045 Narrative: TRANSTHORACIC ECHOCARDIOGRAPHY REPORT Demographics Patient Name: RIN JONES : 1960 Age: 64 year(s) Corporate ID Number: [id number] Gender Female Order Processing Clerk: Giovanna Rock Height: 67 inches [facility] Referring Physician: HUEY HURTADO Weight: 225 [...] 1.35 m/s E/A ratio: 0.97 m/s Volume muclwjewh581.99 LV length: 8.51 cm ml Volume cmogccnf68.96 ml LVOT diameter: 1.79 cm Normal sized [...] Valve TR velocity: 2.51 m/s TR gradient: 25.68654 mmHg Estimated RAP: 3 mmHg RVSP: 28.12 [...] (DOPPLER / COLOR) W OR WO CONTRAST [[id number]] Collected: 11/30/24 0725 Order Status: Completed Updated: 11/30/24 1046 Narrative: TRANSTHORACIC ECHOCARDIOGRAPHY REPORT Demographics Patient Name: RIN JONES : 1960 Age: 64 year(s) Corporate ID Number: [id number] Gender Female Order Processing Clerk: Giovanna Josephty Height: 67 inches [facility] Referring Physician: HUEY HURTADO Weight: 225 pounds Interpreting JESSICA RAYMOND MD BMI: 35.24 kg/m^2 Physician: Date of Service: 11/30/2024 Blood Pressure: 118/59 mmHg Room Number: 579 Type of Study: TTE procedure: ECHO COMPLETE (DOPPLER / COLOR) W OR WO CONTRAST. Patient Status: Routine IP Study Location: [facility] Quality: Adequate visualization History/Tech Notes: [...] 1.35 m/s E/A ratio: 0.97 m/s Volume xygppfnah407.99 LV length: 8.51 cm ml Volume mvukgmhf66.96 ml LVOT diameter: 1.79 cm Normal sized [...] Valve TR velocity: 2.51 m/s TR gradient: 25.16174 mmHg Estimated RAP: 3 mmHg RVSP: 28.12 [...] imaging. Assessment and Plan: *Paroxysmal Atrial Fib [id number] of 2 also have some wide-complex tachycardia [...] BODY REMOVAL; Surgeon: Scott Daley MD; Location: [facility]; Service: Gastroenterology; Laterality: N/A; General [...] Mobility Not assessed, patient ambulatory. Outcome Measures -[facility] Basic Mobility Inpatient Short Form How much [...] Score Raw score=12 t-Scale score=35.33 Standard error=3.08 [facility] 0-100%=68.66% MDC=4.72 A raw score [...] Ext: +++ Pedal edema , no cyanosis REPAIR ARMATURE WINDER: Alert, No focal deficit noted grossly Psy: Cooperative Labs: Results for orders placed or performed during the hospital encounter of 11/30/24 (from the past 24 hours) Glucose, Nova Meter Status: Abnormal Collection Time: 12/04/24 10:52 AM Result Value Ref Range POC-GLUCOSE 136 (H) 70 - 110 mg/dL [facility] [id number] Basic Metabolic Panel Status: Abnormal Collection Time: [...] POC-GLUCOSE 137 (H) 70 - 110 mg/dL L[facility] [id number] ECG 12 lead Status: None (In process) Collection Time: 12/04/24 8:08 PM Result Value Ref Range SYSTOLIC BLOOD PRESSURE (MCT) 133 mmHg DIASTOLIC BLOOD PRESSURE (MCT) 61 mmHg VENTRICULAR RATE EKG/MIN 85 BPM ATRIAL RATE (MCT) 85 BPM AL Interval 140 ms QRS-INTERVAL (MSEC) 94 ms QT Interval 426 ms QTC Interval 506 ms P [place] 44 degrees R AXIS (MCT) 27 degrees T Wave [place] -27 degrees [place] Diagnosis Normal sinus rhythm Nonspecific T wave abnormality Abnormal ECG When compared with ECG of 04-DEC-2024 03:25, QT has lengthened Glucose, Nova Meter Status: Abnormal Collection Time: 12/04/24 10:20 PM Result Value Ref Range POC-GLUCOSE 147 (H) 70 - 110 mg/dL L[facility] [id number] Hemoglobin Status: Abnormal Collection Time: 12/04/24 11:54 [...] POC-GLUCOSE 123 (H) 70 - 110 mg/dL L[facility] [id number] XR chest AP portable Narrative: PORTABLE CHEST [...] renal function - No emergent need of OPTOMETRY TEACHER - Monitor H/H and transfuse for Hgb [...] history as below. She initially presented to [facility] with swollen abdomen, abdominal discomfort, and bilateral lower extremity pain. Her creatinine was elevated and as a result, she was transferred to [facility] ([place], [place]) for he patorenal syndrome. Upon arrival here, [...] BODY REMOVAL; Surgeon: Scott Daley MD; Location: [facility]; Service: Gastroenterology; Laterality: N/A; Allergies: [...] POC-GLUCOSE 136 (H) 70 - 110 mg/dL L[facility] [id number] Basic Metabolic Panel Status: Abnormal Collection Time: [...] POC-GLUCOSE 137 (H) 70 - 110 mg/dL L[facility]er [id number] ECG 12 lead Status: None (In process) Collection Time: 12/04/24 8:08 PM Result Value Ref Range SYSTOLIC BLOOD PRESSURE (MCT) 133 mmHg DIASTOLIC BLOOD PRESSURE (MCT) 61 mmHg VENTRICULAR RATE EKG/MIN 85 BPM ATRIAL RATE (MCT) 85 BPM AL Interval 140 ms QRS-INTERVAL (MSEC) 94 ms QT Interval 426 ms QTC Interval 506 ms P [place] 44 degrees R AXIS (MCT) 27 degrees T Wave [place] -27 degrees [place] Diagnosis Normal sinus rhythm Nonspecific T wave abnormality Abnormal ECG When compared with ECG of 04-DEC-2024 03:25, QT has lengthened Glucose, Nova Meter Status: Abnormal Collection Time: 12/04/24 10:20 PM Result Value Ref Range POC-GLUCOSE 147 (H) 70 - 110 mg/dL Liner Checker [id number] Hemoglobin Status: Abnormal Collection Time: 12/04/24 11:54 [...] POC-GLUCOSE 123 (H) 70 - 110 mg/dL Liner [facility]er [id number] Radiology Radiology Results (last day) Procedure Component Value Units Date/Time XR chest AP portable [[id number]] Collected: 12/04/24 0923 Order Status: Completed Updated: [...] Procedure Component Value Units Date/Time Anaerobic Culture [[id number]] Collected: 11/30/24 1603 Order Status: Completed Specimen: Peritoneal Fluid from Body Fluid Updated: 12/05/24 0634 Result No Anaerobic growth Narrative: Specimen Description: peritoneal fluid Blood Culture [[id number]] Collected: 11/30/24 0340 Order Status: Completed Specimen: Blood from Arm, Left Updated: 12/05/24 0501 Result No growth in 5 days Blood Culture [[id number]] Collected: 11/30/24 0342 Order Status: Completed Specimen: Blood from Arm, Right Updated: 12/05/24 0501 Result No growth in 5 days Body Fluid Culture + Gram Stain [[id number]] Collected: 11/30/24 1603 Order Status: Completed Specimen: Peritoneal Fluid from Body Fluid Updated: 12/03/24 0907 Result No growth Gram Stain Result No organisms seen No cells seen Narrative: Specimen Description: peritoneal fluid Body Fluid/CSF - Path Review (SJ) [[id number]] Collected: 11/30/24 160 Order Status: Completed Specimen: Peritoneal Fluid from Body Fluid Updated: 12/03/24 0654 SENT TO PATHOLOGY FOR REVIEW Yes Scan Result Mesothelial cells. MD German 12/02/2024 AFB Culture And Stain [[id number]] Collected: 11/30/24 1603 Order Status: Completed Specimen: Peritoneal Fluid from Body Fluid Updated: 12/01/24 1410 AFB Smear No acid fast bacilli seen Narrative: Specimen Description: peritoneal fluid Glucose, body fluid [[id number]] Collected: 11/30/24 1603 Order Status: Completed Specimen: Body Fluid from Peritoneal Fluid Updated: 12/01/24 0710 Glucose, Body Fluid 107 mg/dL BODY FLUID TYPE Peritoneal Narrative: This test has been modified from the curtain hemmer automatic's instructions and its performance characteristics were determined by the laboratory. The reference intervals and other method performance specifications are unavailable for this test. It is recommended to interpret body fluid concentrations in comparison with the corresponding serum or plasma concentrations and to integrate test results into the clinical context. Protein, body fluid [[id number]] Collected: 11/30/24 1603 Order Status: Completed Specimen: Body Fluid from Peritoneal Fluid Updated: 12/01/24 0710 Protein, Fluid 1.9 g/dL BODY FLUID TYPE Peritoneal Narrative: This test has been modified from the curtain hemmer automatic's instructions and its performance characteristics were determined by the laboratory. The reference intervals and other method performance specifications are unavailable for this test. It is recommended to interpret body fluid concentrations in comparison with the corresponding serum or plasma concentrations and to integrate test results into the clinical context. Urine Culture [[id number]] Collected: 11/30/24 1135 Order Status: Completed Specimen: Urine, Clean Catch Updated: 12/01/24 0649 Result Recollect Specimen - 3 or more organisms suggests contamination Body fluid cell count with differential [[id number]] (Abnormal) Collected: 11/30/241602 Order Status: Completed Specimen: [...] fluids are not defined. DIFFERENTIAL, BODY FLUID [[id number]] Collected: 11/30/241602 Order Status: Completed Specimen: Peritoneal Fluid from Body Fluid Updated: 11/30/242048 Neutrophils Fluid 5 % Lymphocytes Fluid 46 % Unidentified Mononuclear Cells BF 49 % Lactate dehydrogenase (LDH), body fluid [[id number]] Collected: 11/30/241602 Order Status: Completed Specimen: Peritoneal Fluid from Body Fluid Updated: 11/30/241818 LDH, Fluid 71 U/L BODY FLUID TYPE Peritoneal Narrative: This test has been modified from the curtain hemmer automatic's instructions and its performance characteristics were determined by the laboratory. The reference intervals and other method performance specifications are unavailable for this test. It is recommended to interpret body fluid concentrations in comparison with the corresponding serum or plasma concentrations and to integrate test results into the clinical context. Fungus Culture W/ROSA MARIA Or Nimisha Ink [[id number]] Collected: 11/30/241602 Order Status: Completed Specimen: Peritoneal Fluid from Body Fluid Updated: 11/30/24 1754 ROSA MARIA Prep No fungal elements seen Narrative: Specimen Description: peritoneal fluid Total Protein, Body Fluid(SENDOUT) [[id number]] Collected: 11/30/241602 Order Status: Canceled Specimen: Peritoneal Fluid from Body Fluid Updated: 11/30/24 1634 Glucose Body Fluid(SENDOUT) [[id number]] Collected: 11/30/241602 Order Status: Canceled Specimen: Peritoneal Fluid from Body Fluid Updated: 11/30/24 1634 Urine Culture [[id number]] Collected: 11/30/24 1135 Order Status: Canceled Specimen: [...] and lisinopril. Per nephrology there is no OPTOMETRY TEACHER indication at this time. Ultrasound renal on [...] team including nurse practitioner, nurse, RT, wire rope sales representative, pharmacist, and case management during multidisciplinary round. I Dr.Hazim Jeramy MD, have personally evaluated the patient and performed a [id number] diagnostic evaluation on this patient; I have Obtained history, performed physical examination, reviewed laboratory studies. I have reviewed images independent of radiologist. I have actively directed the medical care, formulated diagnosis, and the plan of care. Patient requires a high complexity of decision making for assessment. Voice superintendent electric power technology ([employer]) is used for dictation of this note and sound-alike words might be erroneously placed despite reviewing the note for accuracy. Errors in dictation may reflect use of voice recognition software and not all errors in superintendent electric power may have been detected prior to signing. [...] POC-GLUCOSE 136 (H) 70 - 110 mg/dL Liner [facility] [id number] Basic Metabolic Panel Status: Abnormal Collection Time: [...] POC-GLUCOSE 137 (H) 70 - 110 mg/dL L[facility] [id number] ECG 12 lead Status: None (In process) Collection Time: 12/04/24 8:08 PM Result Value Ref Range SYSTOLIC BLOOD PRESSURE (MCT) 133 mmHg DIASTOLIC BLOOD PRESSURE (MCT) 61 mmHg VENTRICULAR RATE EKG/MIN 85 BPM ATRIAL RATE (MCT) 85 BPM AL Interval 140 ms QRS-INTERVAL (MSEC) 94 ms QT Interval 426 ms QTC Interval 506 ms P [place] 44 degrees R AXIS (MCT) 27 degrees T Wave [place] -27 degrees [place] Diagnosis Normal sinus rhythm Nonspecific T wave abnormality Abnormal ECG When compared with ECG of 04-DEC-2024 03:25, QT has lengthened Glucose, Nova Meter Status: Abnormal Collection Time: 12/04/24 10:20 PM Result Value Ref Range POC-GLUCOSE 147 (H) 70 - 110 mg/dL [facility] [id number] Hemoglobin Status: Abnormal Collection Time: 12/04/24 11:54 [...] admitted on: 11/30/2024 1:43 AM. presented to [facility] with swollen abdomen, abdominal discomfort and [...] IV 25 g 25 g intravenous Q6H [facility] Timothy Bai MD albuterol 2.5 mg /3 [...] Culture And Stain AFB Culture And Stain [facility] Non-Ointment [employer]ender Cytology [facility] Non-Ointment [employer] Cytology DIFFERENTIAL, BODY FLUID DIFFERENTIAL, BODY FLUID Body Fluid/CSF - Path Review () Body Fluid/CSF - Path Review () [facility] BONE MARROW SMEAR, ASPIRATION, AND STAIN [facility] BONE MARROW SMEAR, ASPIRATION, AND STAIN [...] BODY REMOVAL; Surgeon: Scott Daley MD; Location: [facility]; Service: Gastroenterology; Laterality: N/A; Allergies: [...] Normal range of motion. Integumentary: Warm, Dry, [place]. Neurologic: No obvious focal deficit Psychiatric: Cooperative, Appropriate mood & affect. Labs, Imaging, and Other Studies: Echo Results (last 7 days) Procedure Component Value Units Date/Time ECHO COMPLETE (DOPPLER / COLOR) W OR WO CONTRAST [[id number]] Collected: 11/30/24724 Order Status: Completed Updated: 11/30/24 1046 Narrative: TRANSTHORACIC ECHOCARDIOGRAPHY REPORT Demographics Patient Name: RIN JONES : 1960 Age: 64 year(s) Corporate ID Number: [id number] Gender Female Order Processing Clerk: Giovanna Rock Height: 67 inches [facility] Referring Physician: HUEY HURTADO Weight: 225 pounds Interpreting JESSICA RAYMOND MD BMI: 35.24 kg/m^2 Physician: Date of Service: 11/30/2024 Blood Pressure: 118/59 mmHg Room Number: 579 Type of Study: TTE procedure: ECHO COMPLETE (DOPPLER / COLOR) W OR WO CONTRAST. Patient Status: Routine [facility] History/Tech Notes: [...] 1.35 m/s E/A ratio: 0.97 m/s Volume rlxuklisg100.99 LV length: 8.51 cm ml Volume kbjjqnhu10.96 ml LVOT diameter: 1.79 cm Normal sized [...] Valve TR velocity: 2.51 m/s TR gradient: 25.44481 mmHg Estimated RAP: 3 mmHg RVSP: 28.12 [...] (DOPPLER / COLOR) W OR WO CONTRAST [[id number]] Collected: 11/30/24724 Order Status: Completed Updated: 11/30/24 104 Narrative: TRANSTHORACIC ECHOCARDIOGRAPHY REPORT Demographics Patient Name: RIN JONES : 1960 Age: 64 year(s) Corporate ID Number: [id number] Gender Female Order Processing Clerk: Giovanna Rock Height: 67 inches [facility] Referring Physician: HUEY HURTADO Weight: 225 pounds Interpreting JESSICA RAYMOND MD BMI: 35.24 kg/m^2 Physician: Date of Service: 11/30/2024 Blood Pressure: 118/59 mmHg Room Number: 579 Type of Study: TTE procedure: ECHO COMPLETE (DOPPLER / COLOR) W OR WO CONTRAST. Patient Status: Routine IP Study Location: [facility] Quality: Adequate visualization History/Tech Notes: [...] 1.35 m/s E/A ratio: 0.97 m/s Volume hzzquolhr467.99 LV length: 8.51 cm ml Volume ditryxqj01.96 ml LVOT diameter: 1.79 cm Normal sized [...] Valve TR velocity: 2.51 m/s TR gradient: 25.24272 mmHg Estimated RAP: 3 mmHg RVSP: 28.12 [...] imaging. Assessment and Plan: *Paroxysmal Atrial Fib [id number] of 2 also have some wide-complex tachycardia [...] 97 BPM ATRIAL RATE (MCT) 97 BPM AL Interval 150 ms QRS-INTERVAL (MSEC) 88 ms QT Interval 362 ms QTC Interval 459 ms P [place] 40 degrees R AXIS (MCT) 8 degrees T Wave [place] -8 degrees [place] Diagnosis Normal sinus rhythm Normal ECG No previous ECGs available Confirmed by DEYSI FOSS M.D. ([id number]) on 12/03/2024 5:59:01 PM Glucose, Nova Meter Status: Abnormal Collection Time: 12/03/24 10:45 AM Result Value Ref Range POC-GLUCOSE 156 (H) 70 - 110 mg/dL [facility]er [id number] ECG 12 lead Status: None Collection Time: 12/03/24 2:16 PM Result Value Ref Range VENTRICULAR RATE EKG/MIN 136 BPM ATRIAL RATE (MCT) 73 BPM QRS-INTERVAL (MSEC) 88 ms QT Interval 304 ms QTC Interval 457 ms R AXIS (MCT) -11 degrees T Wave [place] -58 degrees [place] Diagnosis Atrial fibrillation with rapid ventricular response Possible Anterolateral infarct , age undetermined Possible abberancy Confirmed by DEYSI FOSS M.D. ([id number]) on 12/03/2024 5:58:45 PM Glucose, Nova Meter Status: Abnormal Collection Time: 12/03/24 5:19 PM Result Value Ref Range POC-GLUCOSE 146 (H) 70 - 110 mg/dL Liner Checker [id number] Glucose, Nova Meter Status: Abnormal Collection Time: 12/03/24 9:41 PM Result Value Ref Range POC-GLUCOSE 146 (H) 70 - 110 mg/dL Liner Checker [id number] Hemoglobin Status: Abnormal Collection Time: 12/04/24 1:04 AM Result Value Ref Range Hemoglobin 9.0 (L) 11.2 - 15.7 GM/DL ECG 12 lead Status: None (In process) Collection Time: 12/04/24 3:25 AM Result Value Ref Range SYSTOLIC BLOOD PRESSURE (MCT) 165 mmHg DIASTOLIC BLOOD PRESSURE (MCT) 77 mmHg VENTRICULAR RATE EKG/MIN 80 BPM ATRIAL RATE (MCT) 80 BPM AL Interval 154 ms QRS-INTERVAL (MSEC) 76 ms QT Interval 380 ms QTC Interval 438 ms P [place] 47 degrees R AXIS (MCT) 44 degrees T Wave [place] -30 degrees [place] Diagnosis Normal sinus rhythm Low voltage QRS [...] POC-GLUCOSE 155 (H) 70 - 110 mg/dL Liner Checker [id number] Blood gas, arterial Status: Abnormal Collection Time: [...] ARTERIAL 8.6 (L) 12.0 - 18.0 g/dL [facility] COLLECTION SITE Right Brachial Arterial Puncture Yes Blood Gas O2 Delivery Device Cannula Oxygen Flow Rate 3 Blood Gas PT Temperature C 37.0 Sen's Test Not Applicable Critical Values Notification Critical Blood gas called to DAYANARA MATIAS . Results acknowledged/read back to [id number] and confirmed on 12/04/2024 07:09 ABG Number [...] history as below. She initially presented to [facility] with swollen abdomen, abdominal discomfort, and bilateral lower extremity pain. Her creatinine was elevated and as a result, she was transferred to [facility] ([place], [place]) for he patorenal syndrome. Upon arrival here, [...] BODY REMOVAL; Surgeon: Scott Daley MD; Location: [facility]; Service: Gastroenterology; Laterality: N/A; Allergies: [...] 97 BPM ATRIAL RATE (MCT) 97 BPM AL Interval 150 ms QRS-INTERVAL (MSEC) 88 ms QT Interval 362 ms QTC Interval 459 ms P [place] 40 degrees R AXIS (MCT) 8 degrees T Wave [place] -8 degrees [place] Diagnosis Normal sinus rhythm Normal ECG No previous ECGs available Confirmed by DEYSI FOSS M.D. ([id number]) on 12/03/2024 5:59:01 PM Glucose, Nova Meter Status: Abnormal Collection Time: 12/03/24 10:45 AM Result Value Ref Range POC-GLUCOSE 156 (H) 70 - 110 mg/dL Liner Checker [id number] ECG 12 lead Status: None Collection Time: 12/03/24 2:16 PM Result Value Ref Range VENTRICULAR RATE EKG/MIN 136 BPM ATRIAL RATE (MCT) 73 BPM QRS-INTERVAL (MSEC) 88 ms QT Interval 304 ms QTC Interval 457 ms R AXIS (MCT) -11 degrees T Wave [place] -58 degrees [place] Diagnosis Atrial fibrillation with rapid ventricular response Possible Anterolateral infarct , age undetermined Possible abberancy Confirmed by DEYSI FOSS M.D. ([id number]) on 12/03/2024 5:58:45 PM Glucose, Nova Meter Status: Abnormal Collection Time: 12/03/24 5:19 PM Result Value Ref Range POC-GLUCOSE 146 (H) 70 - 110 mg/dL Liner Checker [id number] Glucose, Nova Meter Status: Abnormal Collection Time: 12/03/24 9:41 PM Result Value Ref Range POC-GLUCOSE 146 (H) 70 - 110 mg/dL Liner Checker [id number] Hemoglobin Status: Abnormal Collection Time: 12/04/24 1:04 AM Result Value Ref Range Hemoglobin 9.0 (L) 11.2 - 15.7 GM/DL ECG 12 lead Status: None (In process) Collection Time: 12/04/24 3:25 AM Result Value Ref Range SYSTOLIC BLOOD PRESSURE (MCT) 165 mmHg DIASTOLIC BLOOD PRESSURE (MCT) 77 mmHg VENTRICULAR RATE EKG/MIN 80 BPM ATRIAL RATE (MCT) 80 BPM AL Interval 154 ms QRS-INTERVAL (MSEC) 76 ms QT Interval 380 ms QTC Interval 438 ms P [place] 47 degrees R AXIS (MCT) 44 degrees T Wave [place] -30 degrees [place] Diagnosis Normal sinus rhythm Low voltage QRS [...] POC-GLUCOSE 155 (H) 70 - 110 mg/dL Liner Checker [id number] Blood gas, arterial Status: Abnormal Collection Time: [...] ARTERIAL 8.6 (L) 12.0 - 18.0 g/dL [facility] COLLECTION SITE Right Brachial Arterial Puncture Yes Blood Gas O2 Delivery Device Cannula Oxygen Flow Rate 3 Blood Gas PT Temperature C 37.0 Sen's Test Not Applicable Critical Values Notification Critical Blood gas called to DAYANARA MATIAS . Results acknowledged/read back to [id number] and confirmed on 12/04/2024 07:09 ABG Number of Draw Attempts 1 FIO2 Blood Gas Temperature Corrected Results No No Radiology Radiology Results (last day) Procedure Component Value Units Date/Time XR chest AP portable [[id number]] Resulted: 12/04/24749 Order Status: Sent Updated: 12/04/24750 XR chest AP portable [[id number]] Collected: 12/03/241805 Order Status: Completed Updated: 12/03/241807 [...] Procedure Component Value Units Date/Time Anaerobic Culture [[id number]] Collected: 11/30/24 1603 Order Status: Completed Specimen: Peritoneal Fluid from Body Fluid Updated: 12/04/24 0754 Result No Anaerobic growth Narrative: Specimen Description: peritoneal fluid Blood Culture [[id number]] Collected: 11/30/24 0340 Order Status: Completed Specimen: Blood from Arm, Left Updated: 12/04/24 0501 Result No growth in 4 days Blood Culture [[id number]] Collected: 11/30/24 0342 Order Status: Completed Specimen: Blood from Arm, Right Updated: 12/04/24 0501 Result No growth in 4 days Body Fluid Culture + Gram Stain [[id number]] Collected: 11/30/24 1603 Order Status: Completed Specimen: Peritoneal Fluid from Body Fluid Updated: 12/03/24 0907 Result No growth Gram Stain Result No organisms seen No cells seen Narrative: Specimen Description: peritoneal fluid Body Fluid/CSF - Path Review () [[id number]] Collected: 11/30/24 160 Order Status: Completed Specimen: Peritoneal Fluid from Body Fluid Updated: 12/03/24 0654 SENT TO PATHOLOGY FOR REVIEW Yes Scan Result Mesothelial cells. MD German 12/02/2024 AFB Culture And Stain [[id number]] Collected: 11/30/24 160 Order Status: Completed Specimen: Peritoneal Fluid from Body Fluid Updated: 12/01/24 1410 AFB Smear No acid fast bacilli seen Narrative: Specimen Description: peritoneal fluid Glucose, body fluid [[id number]] Collected: 11/30/24 160 Order Status: Completed Specimen: Body Fluid from Peritoneal Fluid Updated: 12/01/24 0710 Glucose, Body Fluid 107 mg/dL BODY FLUID TYPE Peritoneal Narrative: This test has been modified from the curtain hemmer automatic's instructions and its performance characteristics were determined by the laboratory. The reference intervals and other method performance specifications are unavailable for this test. It is recommended to interpret body fluid concentrations in comparison with the corresponding serum or plasma concentrations and to integrate test results into the clinical context. Protein, body fluid [[id number]] Collected: 11/30/24 160 Order Status: Completed Specimen: Body Fluid from Peritoneal Fluid Updated: 12/01/24 0710 Protein, Fluid 1.9 g/dL BODY FLUID TYPE Peritoneal Narrative: This test has been modified from the curtain hemmer automatic's instructions and its performance characteristics were determined by the laboratory. The reference intervals and other method performance specifications are unavailable for this test. It is recommended to interpret body fluid concentrations in comparison with the corresponding serum or plasma concentrations and to integrate test results into the clinical context. Urine Culture [[id number]] Collected: 11/30/24 1135 Order Status: Completed Specimen: Urine, Clean Catch Updated: 12/01/24 0649 Result Recollect Specimen - 3 or more organisms suggests contamination Body fluid cell count with differential [[id number]] (Abnormal) Collected: 11/30/24 160 Order Status: Completed [...] fluids are not defined. DIFFERENTIAL, BODY FLUID [[id number]] Collected: 11/30/241602 Order Status: Completed Specimen: Peritoneal Fluid from Body Fluid Updated: 11/30/24 2049 Neutrophils Fluid 5 % Lymphocytes Fluid 46 % Unidentified Mononuclear Cells BF 49 % Lactate dehydrogenase (LDH), body fluid [[id number]] Collected: 11/30/241602 Order Status: Completed Specimen: Peritoneal Fluid from Body Fluid Updated: 11/30/24 1819 LDH, Fluid 71 U/L BODY FLUID TYPE Peritoneal Narrative: This test has been modified from the curtain hemmer automatic's instructions and its performance characteristics were determined by the laboratory. The reference intervals and other method performance specifications are unavailable for this test. It is recommended to interpret body fluid concentrations in comparison with the corresponding serum or plasma concentrations and to integrate test results into the clinical context. Fungus Culture W/ROSA MARIA Or Nimisha Ink [[id number]] Collected: 11/30/241602 Order Status: Completed Specimen: Peritoneal Fluid from Body Fluid Updated: 11/30/24 1754 ROSA MARIA Prep No fungal elements seen Narrative: Specimen Description: peritoneal fluid Total Protein, Body Fluid(SENDOUT) [[id number]] Collected: 11/30/24 160 Order Status: Canceled Specimen: Peritoneal Fluid from Body Fluid Updated: 11/30/24 1634 Glucose Body Fluid(SENDOUT) [[id number]] Collected: 11/30/24 160 Order Status: Canceled Specimen: Peritoneal Fluid from Body Fluid Updated: 11/30/24 1634 Urine Culture [[id number]] Collected: 11/30/24 1135 Order Status: Canceled Specimen: [...] and lisinopril. Per nephrology there is no OPTOMETRY TEACHER indication at this time. Ultrasound renal on [...] team including nurse practitioner, nurse, RT, wire rope sales representative, pharmacist, and case management during multidisciplinary round. I Dr.Hazim Jeramy MD, have personally evaluated the patient and performed a pihr-te-rsik diagnostic evaluation on this patient; I have Obtained history, performed physical examination, reviewed laboratory studies. I have reviewed images independent of radiologist. I have actively directed the medical care, formulated diagnosis, and the plan of care. Patient requires a high complexity of decision making for assessment. Voice superintendent electric power technology ([employer]) is used for dictation of this note and sound-alike words might be erroneously placed despite reviewing the note for accuracy. Errors in dictation may reflect use of voice recognition software and not all errors in superintendent electric power may have been detected prior to signing. [...] Ext: +++ Pedal edema , no cyanosis REPAIR ARMATURE WINDER: Alert, No focal deficit noted grossly Psy: [...] 97 BPM ATRIAL RATE (MCT) 97 BPM AL Interval 150 ms QRS-INTERVAL (MSEC) 88 ms QT Interval 362 ms QTC Interval 459 ms P [place] 40 degrees R AXIS (MCT) 8 degrees T Wave [place] -8 degrees [place] Diagnosis Normal sinus rhythm Normal ECG No previous ECGs available Confirmed by DEYSI FOSS M.D. ([id number]) on 12/03/2024 5:59:01 PM Glucose, Nova Meter Status: Abnormal Collection Time: 12/03/24 10:45 AM Result Value Ref Range POC-GLUCOSE 156 (H) 70 - 110 mg/dL Liner Checker [id number] ECG 12 lead Status: None Collection Time: 12/03/24 2:16 PM Result Value Ref Range VENTRICULAR RATE EKG/MIN 136 BPM ATRIAL RATE (MCT) 73 BPM QRS-INTERVAL (MSEC) 88 ms QT Interval 304 ms QTC Interval 457 ms R AXIS (MCT) -11 degrees T Wave [place] -58 degrees [place] Diagnosis Atrial fibrillation with rapid ventricular response Possible Anterolateral infarct , age undetermined Possible abberancy Confirmed by DEYSI FOSS M.D. ([id number]) on 12/03/2024 5:58:45 PM Glucose, Nova Meter Status: Abnormal Collection Time: 12/03/24 5:19 PM Result Value Ref Range POC-GLUCOSE 146 (H) 70 - 110 mg/dL Liner Checker [id number] Glucose, Nova Meter Status: Abnormal Collection Time: 12/03/24 9:41 PM Result Value Ref Range POC-GLUCOSE 146 (H) 70 - 110 mg/dL Liner Checker [id number] Hemoglobin Status: Abnormal Collection Time: 12/04/24 1:04 AM Result Value Ref Range Hemoglobin 9.0 (L) 11.2 - 15.7 GM/DL ECG 12 lead Status: None (In process) Collection Time: 12/04/24 3:25 AM Result Value Ref Range SYSTOLIC BLOOD PRESSURE (MCT) 165 mmHg DIASTOLIC BLOOD PRESSURE (MCT) 77 mmHg VENTRICULAR RATE EKG/MIN 80 BPM ATRIAL RATE (MCT) 80 BPM AL Interval 154 ms QRS-INTERVAL (MSEC) 76 ms QT Interval 380 ms QTC Interval 438 ms P [place] 47 degrees R AXIS (MCT) 44 degrees T Wave [place] -30 degrees [place] Diagnosis Normal sinus rhythm Low voltage QRS [...] POC-GLUCOSE 155 (H) 70 - 110 mg/dL Liner Checker [id number] Blood gas, arterial Status: Abnormal Collection Time: [...] ARTERIAL 8.6 (L) 12.0 - 18.0 g/dL [facility] S[facility] Right Brachial Arterial Puncture Yes Blood Gas O2 Delivery Device Cannula Oxygen Flow Rate 3 Blood Gas PT Temperature C 37.0 Sen's Test Not Applicable Critical Values Notification Critical Blood gas called to DAYANARA MATIAS . Results acknowledged/read back to [id number] and confirmed on 12/04/2024 07:09 ABG Number [...] renal function - No emergent need of OPTOMETRY TEACHER - Monitor H/H and transfuse for Hgb [...] Ext: +++ Pedal edema , no cyanosis REPAIR ARMATURE WINDER: Alert, No focal deficit noted grossly Psy: Cooperative Labs: Results for orders placed or performed during the hospital encounter of 11/30/24 (from the past 24 hours) Glucose, Nova Meter Status: Abnormal Collection Time: 12/02/24 5:18 PM Result Value Ref Range POC-GLUCOSE 128 (H) 70 - 110 mg/dL Liner Checker [id number] Hemoglobin Status: Abnormal Collection Time: 12/02/24 6:03 PM Result Value Ref Range Hemoglobin 9.1 (L) 11.2 - 15.7 GM/DL Glucose, Nova Meter Status: Abnormal Collection Time: 12/02/24 8:06 PM Result Value Ref Range POC-GLUCOSE 144 (H) 70 - 110 mg/dL Liner Checker [id number] Hemoglobin Status: Abnormal Collection Time: 12/02/24 11:06 PM Result Value Ref Range Hemoglobin 8.9 (L) 11.2 - 15.7 GM/DL Glucose, Nova Meter Status: Abnormal Collection Time: 12/03/24 1:10 AM Result Value Ref Range POC-GLUCOSE 164 (H) 70 - 110 mg/dL Liner Checker [id number] Glucose, Nova Meter Status: Abnormal Collection Time: 12/03/24 1:12 AM Result Value Ref Range POC-GLUCOSE 168 (H) 70 - 110 mg/dL Liner Checker [id number] Glucose, Nova Meter Status: Abnormal Collection Time: 12/03/24 5:13 AM Result Value Ref Range POC-GLUCOSE 142 (H) 70 - 110 mg/dL Liner Checker [id number] Magnesium Status: Normal Collection Time: 12/03/24 7:39 [...] 97 BPM ATRIAL RATE (MCT) 97 BPM AL Interval 150 ms QRS-INTERVAL (MSEC) 88 ms QT Interval 362 ms QTC Interval 459 ms P [place] 40 degrees R AXIS (MCT) 8 degrees T Wave [place] -8 degrees [place] Diagnosis Normal sinus rhythm Normal ECG No previous ECGs available Glucose, Nova Meter Status: Abnormal Collection Time: 12/03/24 10:45 AM Result Value Ref Range POC-GLUCOSE 156 (H) 70 - 110 mg/dL Liner Checker [id number] ECG 12 lead Status: None (In process) Collection Time: 12/03/24 2:16 PM Result Value Ref Range VENTRICULAR RATE EKG/MIN 136 BPM ATRIAL RATE (MCT) 73 BPM QRS-INTERVAL (MSEC) 88 ms QT Interval 304 ms QTC Interval 457 ms R AXIS (MCT) -11 degrees T Wave [place] -58 degrees [place] Diagnosis Atrial fibrillation with rapid ventricular response Possible Anterolateral infarct , age undetermined Abnormal ECG When compared with ECG of 03-DEC-2024 10:39, Atrial fibrillation has replaced Sinus rhythm CT bone marrow biopsy Narrative: CT GUIDED BONE MARROW ASPIRATION AND CORE BIOPSY. HISTORY: Pancytopenia. ATTENDING RADIOLOGIST: Dr. Haseeb Gil. PHYSICIAN JAVA ENGINEER: Sandra Ramsey PA-C PROCEDURE: After informed consent [...] renal function - No emergent need of OPTOMETRY TEACHER - Monitor H/H and transfuse for Hgb less than 7.0 * Brandan Kerr, PT - 12/03/2024 2:16 PM EDT Images from the original note were not included. Inpatient Physical Therapy Attempt to Treat Patient Name: Mary Coronel Birthday: 1960 Date of Attempt: 12/03/2024 Time: [id number]. Gathered subjective history from patient and assessed [...] LOS: 3 days Location:[phone] PCP on file: [facility] Principal Problem: Anasarca ASSESSMENT & [...] Dr. Law Cote on December 07 in [place], [place] -No evidence of SBP -Continue Lactulose/Xifaxan [...] POC-GLUCOSE 112 (H) 70 - 110 mg/dL Liner Checker [id number] Glucose, Nova Meter Status: Abnormal Collection Time: 12/02/24 5:18 PM Result Value Ref Range POC-GLUCOSE 128 (H) 70 - 110 mg/dL Liner Checker [id number] Hemoglobin Status: Abnormal Collection Time: 12/02/24 6:03 PM Result Value Ref Range Hemoglobin 9.1 (L) 11.2 - 15.7 GM/DL Glucose, Nova Meter Status: Abnormal Collection Time: 12/02/24 8:06 PM Result Value Ref Range POC-GLUCOSE 144 (H) 70 - 110 mg/dL Liner Checker [id number] Hemoglobin Status: Abnormal Collection Time: 12/02/24 11:06 PM Result Value Ref Range Hemoglobin 8.9 (L) 11.2 - 15.7 GM/DL Glucose, Nova Meter Status: Abnormal Collection Time: 12/03/24 1:10 AM Result Value Ref Range POC-GLUCOSE 164 (H) 70 - 110 mg/dL Liner Checker [id number] Glucose, Nova Meter Status: Abnormal Collection Time: 12/03/24 1:12 AM Result Value Ref Range POC-GLUCOSE 168 (H) 70 - 110 mg/dL Liner Checker [id number] Glucose, Nova Meter Status: Abnormal Collection Time: 12/03/24 5:13 AM Result Value Ref Range POC-GLUCOSE 142 (H) 70 - 110 mg/dL Liner Checker [id number] Magnesium Status: Normal Collection Time: 12/03/24 7:39 [...] Value Units Date/Time CT bone marrow biopsy [[id number]] Collected: 12/02/24 1524 Order Status: Completed Updated: 12/02/24 1556 Narrative: CT GUIDED BONE MARROW ASPIRATION AND CORE BIOPSY. HISTORY: Pancytopenia. ATTENDING RADIOLOGIST: Dr. Haseeb Gil. PHYSICIAN JAVA ENGINEER: Sandra Ramsey PA-C PROCEDURE: After informed consent [...] Transcribed by Sandra Ramsey PA-C. Ultrasound liver [[id number]] Collected: 11/30/24 1643 Order Status: Completed Updated: [...] and dictated by SABINE Yang. US paracentesis [[id number]] Collected: 11/30/24 1637 Order Status: Completed Updated: 11/30/241654 Narrative: ULTRASOUND-GUIDED PARACENTESIS HISTORY: Ascites ATTENDING PHYSICIAN: Dr. Haseeb Gil PHYSICIAN JAVA ENGINEER: Gabriel Velasco PA-C FINDINGS: After informed consent [...] by Gabriel Velasco PA-C. Ultrasound renal limited [[id number]] Collected: 11/30/24 1646 Order Status: Completed Updated: [...] Ronnell Tom MD XR chest AP portable [[id number]] Collected: 11/30/24 1215 Order Status: Completed Updated: [...] AM Result Value Ref Range Issue Date/Time [id number] Product Identification Red Blood Cells Product Code F0012Y01 Status Information Transfused Unit Number [id number] Blood Type 5100 Cross Match Results Compatible Glucose, Nova Meter Status: Abnormal Collection Time: 12/02/24 12:51 PM Result Value Ref Range POC-GLUCOSE 112 (H) 70 - 110 mg/dL Liner Checker [id number] Glucose, Nova Meter Status: Abnormal Collection Time: 12/02/24 5:18 PM Result Value Ref Range POC-GLUCOSE 128 (H) 70 - 110 mg/dL Liner Checker [id number] Hemoglobin Status: Abnormal Collection Time: 12/02/24 6:03 PM Result Value Ref Range Hemoglobin 9.1 (L) 11.2 - 15.7 GM/DL Glucose, Nova Meter Status: Abnormal Collection Time: 12/02/24 8:06 PM Result Value Ref Range POC-GLUCOSE 144 (H) 70 - 110 mg/dL Liner Checker [id number] Hemoglobin Status: Abnormal Collection Time: 12/02/24 11:06 PM Result Value Ref Range Hemoglobin 8.9 (L) 11.2 - 15.7 GM/DL Glucose, Nova Meter Status: Abnormal Collection Time: 12/03/24 1:10 AM Result Value Ref Range POC-GLUCOSE 164 (H) 70 - 110 mg/dL Liner Checker [id number] Glucose, Nova Meter Status: Abnormal Collection Time: 12/03/24 1:12 AM Result Value Ref Range POC-GLUCOSE 168 (H) 70 - 110 mg/dL Liner Checker [id number] Glucose, Nova Meter Status: Abnormal Collection Time: 12/03/24 5:13 AM Result Value Ref Range POC-GLUCOSE 142 (H) 70 - 110 mg/dL Liner Checker [id number] Magnesium Status: Normal Collection Time: 12/03/24 7:39 [...] Pancytopenia. ATTENDING RADIOLOGIST: Dr. Haseeb Gil. PHYSICIAN JAVA ENGINEER: Sandra Ramsey PA-C PROCEDURE: After informed consent [...] BODY REMOVAL; Surgeon: Scott Daley MD; Location: [facility]; Service: Gastroenterology; Laterality: N/A; General [...] patient's discharge summary. Electronically signed by NBA Gaoan - 12/03/2024 - 3:24 PM EDT * [...] in Afib w/RVR and c/o SOB. EP WAREHOUSE SELECTOR notified.New orders taken. IV Amio 150mg bolus [...] BODY REMOVAL; Surgeon: Scott Daley MD; Location: [facility]; Service: Gastroenterology; Laterality: N/A; Allergies: [...] Value Units Date/Time CT bone marrow biopsy [[id number]] Collected: 12/02/24 1524 Order Status: Completed Updated: 12/02/241525 Narrative: CT GUIDED BONE MARROW ASPIRATION AND CORE BIOPSY. HISTORY: Pancytopenia. ATTENDING RADIOLOGIST: Dr. Haseeb Gil. PHYSICIAN JAVA ENGINEER: Sandra Ramsey PA-C PROCEDURE: After informed consent [...] by Sandra Ramsey PA-C. Ultrasound renal limited [[id number]] Collected: 11/30/241645 Order Status: Completed Updated: 11/30/241648 [...] dictated by Ronnell Tom MD Ultrasound liver [[id number]] Collected: 11/30/24 164 Order Status: Completed Updated: [...] and dictated by SABINE Yang. US paracentesis [[id number]] Collected: 11/30/24 1637 Order Status: Completed Updated: 11/30/241654 Narrative: ULTRASOUND-GUIDED PARACENTESIS HISTORY: Ascites ATTENDING PHYSICIAN: Dr. Haseeb Gil PHYSICIAN JAVA ENGINEER: Gabriel Velasco PA-C FINDINGS: After informed consent [...] Gabriel Velasco PA-C. XR chest AP portable [[id number]] Collected: 11/30/24 1215 Order Status: Completed Updated: [...] by Marielos Sotelo PA-C. US renal complete [[id number]] Order Status: Canceled Assessment Pancytopenia. She had [...] LOS: 2 days Location:[phone] PCP on file: [facility] Principal Problem: Anasarca ASSESSMENT & [...] Range POC-GLUCOSE 100 70 - 110 mg/dL Liner Checker [id number] Hemoglobin Status: Abnormal Collection Time: 12/01/24 3:33 PM Result Value Ref Range Hemoglobin 8.0 (L) 11.2 - 15.7 GM/DL Glucose, Nova Meter Status: Abnormal Collection Time: 12/01/24 4:25 PM Result Value Ref Range POC-GLUCOSE 115 (H) 70 - 110 mg/dL Liner Checker [id number] Glucose, Nova Meter Status: Abnormal Collection Time: 12/01/24 7:34 PM Result Value Ref Range POC-GLUCOSE 128 (H) 70 - 110 mg/dL Liner Checker [id number] Hemoglobin Status: Abnormal Collection Time: 12/02/24 12:04 [...] POC-GLUCOSE 115 (H) 70 - 110 mg/dL Liner Checker [id number] Hemoglobin Status: Abnormal Collection Time: 12/02/24 7:40 [...] Product Identification Red Blood Cells Product Code G8809P66 Status Information Ready for issue Unit Number [id number] Blood Type 5100 Cross Match Results Compatible Radiology Results (last 3 days) Procedure Component Value Units Date/Time Ultrasound liver [[id number]] Collected: 11/30/24 1643 Order Status: Completed Updated: [...] and dictated by SABINE Yang. US paracentesis [[id number]] Collected: 11/30/24 1637 Order Status: Completed Updated: 11/30/241654 Narrative: ULTRASOUND-GUIDED PARACENTESIS HISTORY: Ascites ATTENDING PHYSICIAN: Dr. Haseeb Gil PHYSICIAN JAVA ENGINEER: Gabriel Velasco PA-C FINDINGS: After informed consent [...] by Gabriel Velasco PA-C. Ultrasound renal limited [[id number]] Collected: 11/30/24 1646 Order Status: Completed Updated: [...] Ronnell Tom MD XR chest AP portable [[id number]] Collected: 11/30/24 1215 Order Status: Completed Updated: [...] Ext: +++ Pedal edema , no cyanosis REPAIR ARMATURE WINDER: Alert, No focal deficit noted grossly Psy: Cooperative Labs: Results for orders placed or performed during the hospital encounter of 11/30/24 (from the past 24 hours) Glucose, Nova Meter Status: None Collection Time: 12/01/24 10:32 AM Result Value Ref Range POC-GLUCOSE 100 70 - 110 mg/dL Liner Checker [id number] Hemoglobin Status: Abnormal Collection Time: 12/01/24 3:33 PM Result Value Ref Range Hemoglobin 8.0 (L) 11.2 - 15.7 GM/DL Glucose, Nova Meter Status: Abnormal Collection Time: 12/01/24 4:25 PM Result Value Ref Range POC-GLUCOSE 115 (H) 70 - 110 mg/dL Liner Checker [id number] Glucose, Nova Meter Status: Abnormal Collection Time: 12/01/24 7:34 PM Result Value Ref Range POC-GLUCOSE 128 (H) 70 - 110 mg/dL Liner Checker [id number] Hemoglobin Status: Abnormal Collection Time: 12/02/24 12:04 [...] POC-GLUCOSE 115 (H) 70 - 110 mg/dL Liner Checker [id number] Hemoglobin Status: Abnormal Collection Time: 12/02/24 7:40 [...] Ascites ATTENDING PHYSICIAN: Dr. Haseeb Gil PHYSICIAN JAVA ENGINEER: Gabriel Velasco PA-C FINDINGS: After informed consent [...] 1960 Age: 64 year(s) Corporate ID Number: [id number] Gender Female Order Processing Clerk: Giovanna Rock Height: 67 inches [facility] Referring Physician: HUEY HURTADO Weight: 225 pounds Interpreting JESSICA RAYMOND MD BMI: 35.24 kg/m^2 Physician: Date of Service: 11/30/2024 Blood Pressure: 118/59 mmHg Room Number: 579 Type of Study: TTE procedure: ECHO COMPLETE (DOPPLER / COLOR) W OR WO CONTRAST. Patient Status: Routine IP [facility]: Adequate visualization History/Tech Notes: Indication: shortness [...] 1.35 m/s E/A ratio: 0.97 m/s Volume wxgsaiqyu612.99 LV length: 8.51 cm ml Volume ooqoiakj13.96 ml LVOT diameter: 1.79 cm Normal sized [...] Valve TR velocity: 2.51 m/s TR gradient: 25.42397 mmHg Estimated RAP: 3 mmHg RVSP: 28.12 [...] subcostal imaging. Recent Labs Lab(s) Units 12/02/24 0790 12/02/24 7374 12/02/24 0338 12/02/24 0004 12/01/24 1934 12/01/24 [...] Intake/Output Summary (Last 24 hours) at 12/02/2024 0947 Last data filed at 12/01/2024 1103 Gross [...] renal function - No emergent need of OPTOMETRY TEACHER - Monitor H/H and transfuse for Hgb [...] Range POC-GLUCOSE 100 70 - 110 mg/dL Liner Checker [id number] Hemoglobin Status: Abnormal Collection Time: 12/01/24 3:33 PM Result Value Ref Range Hemoglobin 8.0 (L) 11.2 - 15.7 GM/DL Glucose, Nova Meter Status: Abnormal Collection Time: 12/01/24 4:25 PM Result Value Ref Range POC-GLUCOSE 115 (H) 70 - 110 mg/dL Liner Checker [id number] Glucose, Nova Meter Status: Abnormal Collection Time: 12/01/24 7:34 PM Result Value Ref Range POC-GLUCOSE 128 (H) 70 - 110 mg/dL Liner Checker [id number] Hemoglobin Status: Abnormal Collection Time: 12/02/24 12:04 [...] POC-GLUCOSE 115 (H) 70 - 110 mg/dL Liner Checker [id number] Hemoglobin Status: Abnormal Collection Time: 12/02/24 7:40 [...] Ascites ATTENDING PHYSICIAN: Dr. Haseeb Gil PHYSICIAN JAVA ENGINEER: Gabriel Velasco PA-C FINDINGS: After informed consent [...] 1960 Age: 64 year(s) Corporate ID Number: [id number] Gender Female Order Processing Clerk: Giovanna Rock Height: 67 inches [facility] Referring Physician: HUEY HURTADO Weight: 225 [...] .99 LV length: 8.51 cm ml Volume ozpqedpa03.96 ml LVOT diameter: 1.79 cm Normal sized [...] Valve TR velocity: 2.51 m/s TR gradient: 25.77746 mmHg Estimated RAP: 3 mmHg RVSP: 28.12 [...] BODY REMOVAL; Surgeon: Scott Daley MD; Location: [facility]; Service: Gastroenterology; Laterality: N/A; Allergies: [...] Component Value Units Date/Time Ultrasound renal limited [[id number]] Collected: 11/30/241645 Order Status: Completed Updated: 11/30/241648 [...] dictated by Ronnell Tom MD Ultrasound liver [[id number]] Collected: 11/30/24 1643 Order Status: Completed Updated: [...] and dictated by SABINE Yang. US paracentesis [[id number]] Collected: 11/30/24 1637 Order Status: Completed Updated: 11/30/241654 Narrative: ULTRASOUND-GUIDED PARACENTESIS HISTORY: Ascites ATTENDING PHYSICIAN: Dr. Haseeb Gil PHYSICIAN JAVA ENGINEER: Gabriel Velasco PA-C FINDINGS: After informed consent [...] Gabriel Velasco PA-C. XR chest AP portable [[id number]] Collected: 11/30/24 1215 Order Status: Completed Updated: [...] by Marielos Sotelo PA-C. US renal complete [[id number]] Order Status: Canceled Assessment Pancytopenia. White blood [...] Range POC-GLUCOSE 102 70 - 110 mg/dL Liner Checker [id number] Urinalysis, Reflex Microscopic and Culture If Indicated Status: Abnormal Collection Time: 11/30/24 11:35 AM Result Value Ref Range Color, UA Light Yellow Clarity, UA Turbid (A) Clear Specific [place], UA 1.011 1.005 - 1.030 pH, UA [...] Range POC-GLUCOSE 107 70 - 110 mg/dL Liner Checker [id number] Glucose, Nova Meter Status: None Collection Time: 11/30/24 7:38 PM Result Value Ref Range POC-GLUCOSE 106 70 - 110 mg/dL Liner Checker [id number] Magnesium Status: Abnormal Collection Time: 12/01/24 4:05 [...] AM Result Value Ref Range Issue Date/Time [id number] Product Identification Red Blood Cells Product Code S2531K21 Status Information Transfused Unit Number [id number] Blood Type 5100 Cross Match Results Compatible Glucose, Nova Meter Status: None Collection Time: 12/01/24 5:37 AM Result Value Ref Range POC-GLUCOSE 107 70 - 110 mg/dL Liner Checker [id number] Type and Screen Status: None (Preliminary result) Collection Time: 12/01/24 7:08 AM Result Value Ref Range ABO/Rh O Positive Antibody Screen Negative Glucose, Nova Meter Status: None Collection Time: 12/01/24 8:12 AM Result Value Ref Range POC-GLUCOSE 103 70 - 110 mg/dL Liner Checker [id number] Ultrasound liver Narrative: CLINICAL INDICATION: Abdominal pain. [...] Ascites ATTENDING PHYSICIAN: Dr. Haseeb Gil PHYSICIAN JAVA ENGINEER: Gabriel Velasco PA-C FINDINGS: After informed consent [...] 1960 Age: 64 year(s) Corporate ID Number: [id number] Gender Female Order Processing Clerk: Giovanna Rock Height: 67 inches [facility] Referring Physician: HUEY HURTADO Weight: 225 pounds Interpreting JESSICA RAYMOND MD BMI: 35.24 kg/m^2 Physician: Date of Service: 11/30/2024 Blood Pressure: 118/59 mmHg Room Number: 579 Type of Study: TTE procedure: ECHO COMPLETE (DOPPLER / COLOR) W OR WO CONTRAST. Patient Status: Routine IP Study Location: [facility] Quality: Adequate visualization History/Tech Notes: [...] 1.35 m/s E/A ratio: 0.97 m/s Volume lzvkpdcnu794.99 LV length: 8.51 cm ml Volume pxsshvxe45.96 ml LVOT diameter: 1.79 cm Normal sized [...] Valve TR velocity: 2.51 m/s TR gradient: 25.93315 mmHg Estimated RAP: 3 mmHg RVSP: 28.12 [...] Ext: +++ Pedal edema , no cyanosis REPAIR ARMATURE WINDER: Alert, No focal deficit noted grossly Psy: Cooperative Labs: Results for orders placed or performed during the hospital encounter of 11/30/24 (from the past 24 hours) Glucose, Nova Meter Status: None Collection Time: 11/30/24 10:46 AM Result Value Ref Range POC-GLUCOSE 102 70 - 110 mg/dL Liner Checker [id number] Urinalysis, Reflex Microscopic and Culture If Indicated Status: Abnormal Collection Time: 11/30/24 11:35 AM Result Value Ref Range Color, UA Light Yellow Clarity, UA Turbid (A) Clear Specific [place], UA 1.011 1.005 - 1.030 pH, UA [...] Range POC-GLUCOSE 107 70 - 110 mg/dL Liner Checker [id number] Glucose, Nova Meter Status: None Collection Time: 11/30/24 7:38 PM Result Value Ref Range POC-GLUCOSE 106 70 - 110 mg/dL Liner Checker [id number] Magnesium Status: Abnormal Collection Time: 12/01/24 4:05 [...] AM Result Value Ref Range Issue Date/Time [id number] Product Identification Red Blood Cells Product Code C9356S99 Status Information Transfused Unit Number [id number] Blood Type 5100 Cross Match Results Compatible Glucose, Nova Meter Status: None Collection Time: 12/01/24 5:37 AM Result Value Ref Range POC-GLUCOSE 107 70 - 110 mg/dL Liner Checker [id number] Type and Screen Status: None (Preliminary result) Collection Time: 12/01/24 7:08 AM Result Value Ref Range ABO/Rh O Positive Antibody Screen Negative Glucose, Nova Meter Status: None Collection Time: 12/01/24 8:12 AM Result Value Ref Range POC-GLUCOSE 103 70 - 110 mg/dL Liner Checker [id number] Ultrasound liver Narrative: CLINICAL INDICATION: Abdominal pain. [...] Ascites ATTENDING PHYSICIAN: Dr. Haseeb Gil PHYSICIAN JAVA ENGINEER: Gabriel Velasco PA-C FINDINGS: After informed consent [...] 1960 Age: 64 year(s) Corporate ID Number: [id number] Gender Female Order Processing Clerk: Giovanna Rock Height: 67 inches [facility] Referring Physician: HUEY HURTADO Weight: 225 pounds Interpreting JESSICA RAYMOND MD BMI: 35.24 kg/m^2 Physician: Date of Service: 11/30/2024 Blood Pressure: 118/59 mmHg Room Number: 579 Type of Study: TTE procedure: ECHO COMPLETE (DOPPLER / COLOR) W OR WO CONTRAST. Patient Status: Routine IP [facility] History/Tech Notes: Indication: [...] 1.35 m/s E/A ratio: 0.97 m/s Volume lxtitruiz319.99 LV length: 8.51 cm ml Volume lyytexjb51.96 ml LVOT diameter: 1.79 cm Normal sized [...] Valve TR velocity: 2.51 m/s TR gradient: 25.89171 mmHg Estimated RAP: 3 mmHg RVSP: 28.12 [...] renal function - No emergent need of OPTOMETRY TEACHER - Monitor H/H and transfuse for Hgb [...] The patient's fine motor coordination is intact. Geylak-cf-vbuu: LUE (3) Minimal Impairment: Able to accomplish [...] in chair, to don socks Outcome Measures [facility] Daily Living Functional Assessment How much [...] (Minimal/Contact guard/Supervision/Setup) 4=None (Modified independent/Independent) The patient's [facility] raw score is 16. The patient currently has 53.32% functional impairment. Clinicians are most likely to recommend inpatient/SNF/penitentiary care for patients with scores between 6-17, [...] diabetes, CKD, CAD, arthritis. Patient presented to [facility] with swollen abdomen, abdominal discomfort and [...] niece forced patient to visit [facility] emergency room today she really loves me. [...] hyperlipidemia, diabetes, CAD, arthritis. Patient presented to [facility] with swollen abdomen, abdominal discomfort and bilateral lower extremity pitting edema. Patient diagnosed with anasarca, and admitted for hepatorenal/temporary dialysis evaluation. Problems as listed below: [facility] labs reviewed prior to current hospitalization: Hemoglobin [...] every 12. CT abdomen/pelvis from [facility] shows ascites. Therefore ordered paracentesis for a.m. [...] biopsy Full report to follow. * Moo Vealsco PA-C - 11/30/2024 3:56 PM EDT Pre-Op [...] history as below. She initially presented to [facility] with swollen abdomen, abdominal discomfort, and bilateral lower extremity pain. Her creatinine was elevated and as a result, she was transferred to [facility] ([place], [place]) for he patorenal syndrome. Upon arrival here, [...] BODY REMOVAL; Surgeon: Scott Daley MD; Location: [facility]; Service: Gastroenterology; Laterality: N/A; Allergies: [...] POC-GLUCOSE 134 (H) 70 - 110 mg/dL Liner Checker [id number] Glucose, Nova Meter Status: Abnormal Collection Time: 12/06/24 7:26 PM Result Value Ref Range POC-GLUCOSE 170 (H) 70 - 110 mg/dL Liner Checker [id number] CBC - Hemogram (-BKR) Status: Abnormal Collection [...] POC-GLUCOSE 159 (H) 70 - 110 mg/dL Liner Checker [id number] ECG 12 lead Status: None (In process) Collection Time: 12/07/24 10:29 AM Result Value Ref Range VENTRICULAR RATE EKG/MIN 91 BPM ATRIAL RATE (MCT) 91 BPM AL Interval 142 ms QRS-INTERVAL (MSEC) 88 ms QT Interval 376 ms QTC Interval 462 ms P [place] 39 degrees R AXIS (MCT) -3 degrees T Wave [place] 4 degrees [place] Diagnosis Normal sinus rhythm Nonspecific T wave [...] 12.0 - 18.0 g/dL PaO2/FIO2 calculated 203.0 [facility] COLLECTION SITE Right Radial Arterial Puncture Yes Blood Gas PT Temperature C 37.0 Sen's Test Acceptable Critical Values Notification Critical Blood gas called to TRAY LORENZ RN . [place] [id number] and confirmed on 12/07/2024 10:51 ABG Number of Draw Attempts 1 FIO2 21.0 Blood Gas Temperature Corrected Results No No Glucose, Nova Meter Status: Abnormal Collection Time: 12/07/24 10:54 AM Result Value Ref Range POC-GLUCOSE 146 (H) 70 - 110 mg/dL Liner Checker [id number] Radiology Radiology Results (last day) Procedure Component Value Units Date/Time XR chest AP portable [[id number]] Resulted: 12/07/24 1353 Order Status: Sent Updated: 12/07/24 1426 Microbiology: Microbiology Results (last 7 days) Procedure Component Value Units Date/Time Anaerobic Culture [[id number]] Collected: 11/30/24 1603 Order Status: Completed Specimen: Peritoneal Fluid from Body Fluid Updated: 12/05/24 0634 Result No Anaerobic growth Narrative: Specimen Description: peritoneal fluid Blood Culture [[id number]] Collected: 11/30/24 0340 Order Status: Completed Specimen: Blood from Arm, Left Updated: 12/05/24 0501 Result No growth in 5 days Blood Culture [[id number]] Collected: 11/30/24 0342 Order Status: Completed Specimen: Blood from Arm, Right Updated: 12/05/24 0501 Result No growth in 5 days Body Fluid Culture + Gram Stain [[id number]] Collected: 11/30/24 1603 Order Status: Completed Specimen: Peritoneal Fluid from Body Fluid Updated: 12/03/24 0907 Result No growth Gram Stain Result No organisms seen No cells seen Narrative: Specimen Description: peritoneal fluid Body Fluid/CSF - Path Review () [[id number]] Collected: 11/30/24 1603 Order Status: Completed Specimen: Peritoneal Fluid from Body Fluid Updated: 12/03/24 0654 SENT TO PATHOLOGY FOR REVIEW Yes Scan Result Mesothelial cells. MD German 12/02/2024 AFB Culture And Stain [[id number]] Collected: 11/30/24 1603 Order Status: Completed Specimen: Peritoneal Fluid from Body Fluid Updated: 12/01/24 1410 AFB Smear No acid fast bacilli seen Narrative: Specimen Description: peritoneal fluid Glucose, body fluid [[id number]] Collected: 11/30/24 1603 Order Status: Completed Specimen: Body Fluid from Peritoneal Fluid Updated: 12/01/24 0710 Glucose, Body Fluid 107 mg/dL BODY FLUID TYPE Peritoneal Narrative: This test has been modified from the curtain hemmer automatic's instructions and its performance characteristics were determined by the laboratory. The reference intervals and other method performance specifications are unavailable for this test. It is recommended to interpret body fluid concentrations in comparison with the corresponding serum or plasma concentrations and to integrate test results into the clinical context. Protein, body fluid [[id number]] Collected: 11/30/241602 Order Status: Completed Specimen: Body Fluid from Peritoneal Fluid Updated: 12/01/24 0710 Protein, Fluid 1.9 g/dL BODY FLUID TYPE Peritoneal Narrative: This test has been modified from the curtain hemmer automatic's instructions and its performance characteristics were determined by the laboratory. The reference intervals and other method performance specifications are unavailable for this test. It is recommended to interpret body fluid concentrations in comparison with the corresponding serum or plasma concentrations and to integrate test results into the clinical context. Urine Culture [[id number]] Collected: 11/30/24 1135 Order Status: Completed Specimen: Urine, Clean Catch Updated: 12/01/24648 Result Recollect Specimen - 3 or more organisms suggests contamination Body fluid cell count with differential [[id number]] (Abnormal) Collected: 11/30/241602 Order Status: Completed Specimen: [...] fluids are not defined. DIFFERENTIAL, BODY FLUID [[id number]] Collected: 11/30/241602 Order Status: Completed Specimen: Peritoneal Fluid from Body Fluid Updated: 11/30/242048 Neutrophils Fluid 5 % Lymphocytes Fluid 46 % Unidentified Mononuclear Cells BF 49 % Lactate dehydrogenase (LDH), body fluid [[id number]] Collected: 11/30/241602 Order Status: Completed Specimen: Peritoneal Fluid from Body Fluid Updated: 11/30/241818 LDH, Fluid 71 U/L BODY FLUID TYPE Peritoneal Narrative: This test has been modified from the curtain hemmer automatic's instructions and its performance characteristics were determined by the laboratory. The reference intervals and other method performance specifications are unavailable for this test. It is recommended to interpret body fluid concentrations in comparison with the corresponding serum or plasma concentrations and to integrate test results into the clinical context. Fungus Culture W/ROSA MARIA Or Nimisha Ink [[id number]] Collected: 11/30/24 160 Order Status: Completed Specimen: Peritoneal Fluid from Body Fluid Updated: 11/30/24 1754 ROSA MARIA Prep No fungal elements seen Narrative: Specimen Description: peritoneal fluid Total Protein, Body Fluid(SENDOUT) [[id number]] Collected: 11/30/24 160 Order Status: Canceled Specimen: Peritoneal Fluid from Body Fluid Updated: 11/30/24 1634 Glucose Body Fluid(SENDOUT) [[id number]] Collected: 11/30/24 160 Order Status: Canceled Specimen: [...] to continue with albumin/diuretics no indication for OPTOMETRY TEACHER BIPAP 14/8 Fio2 50%,ABG in 2 hrs [...] personally evaluated the patient and performed a dghu-em-vake diagnostic evaluation on this patient; I have reviewed history, performed physical examination, reviewed laboratory studies. , andreviewed images independent of radiologist. I have actively directed the medical care, formulated assessemnt and plan of care. Patient requires a high complexity of decision making for assessment. 46 minutes pulmonary care clinical time was spent. Voice superintendent electric power technology ([employer]) is used for dictation of this note and sound-alike words might be erroneously placed despite reviewing the note for accuracy.Errors in dictation may reflect use of voice recognition software and not all errors in superintendent electric power may have been detectedprior to signing * KENNEY Zaragoza - 12/07/2024 10:29 AM EDTAssociated Order(s): IP CONSULT TO CARE COORDINATION Summary: Pending SNF/Rehab Discharge Plan Progress Note [facility] can offer bed for patient, semi-private room. Address: [address] [place] [address] [place] [address] - about 56 minutes (36 miles) from patient's address. [facility] started precert, 12/07, 10:33. Insurance will require updated PT/OT notes for rehab. Other SNF options: [facility] (over an hour away from home [...] call Jojo da silva at phone # [phone], received busy tone, unable to reach sister [...] reported. 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 Requested chicken noodle soup for lunch. Agreeable to ONS TID. 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 She initially presented to [facility] with swollen abdomen, abdominal discomfort, and bilateral lower extremity pain. Her creatinine was elevated and as a result, she was transferred to [facility] ([place], [place]) for he patorenal syndrome. Upon arrival here, [...] BODY REMOVAL; Surgeon: Scott Daley MD; Location: [facility]; Service: Gastroenterology; Laterality: N/A; Allergies: [...] POC-GLUCOSE 128 (H) 70 - 110 mg/dL Liner Checker [id number] Hemoglobin Status: Abnormal Collection Time: 12/02/24 6:03 PM Result Value Ref Range Hemoglobin 9.1 (L) 11.2 - 15.7 GM/DL Glucose, Nova Meter Status: Abnormal Collection Time: 12/02/24 8:06 PM Result Value Ref Range POC-GLUCOSE 144 (H) 70 - 110 mg/dL Liner Checker [id number] Hemoglobin Status: Abnormal Collection Time: 12/02/24 11:06 PM Result Value Ref Range Hemoglobin 8.9 (L) 11.2 - 15.7 GM/DL Glucose, Nova Meter Status: Abnormal Collection Time: 12/03/24 1:10 AM Result Value Ref Range POC-GLUCOSE 164 (H) 70 - 110 mg/dL Liner Checker [id number] Glucose, Nova Meter Status: Abnormal Collection Time: 12/03/24 1:12 AM Result Value Ref Range POC-GLUCOSE 168 (H) 70 - 110 mg/dL Liner Checker [id number] Glucose, Nova Meter Status: Abnormal Collection Time: 12/03/24 5:13 AM Result Value Ref Range POC-GLUCOSE 142 (H) 70 - 110 mg/dL Liner Checker [id number] Magnesium Status: Normal Collection Time: 12/03/24 7:39 [...] 97 BPM ATRIAL RATE (MCT) 97 BPM AL Interval 150 ms QRS-INTERVAL (MSEC) 88 ms QT Interval 362 ms QTC Interval 459 ms P [place] 40 degrees R AXIS (MCT) 8 degrees T Wave [place] -8 degrees [place] Diagnosis Normal sinus rhythm Normal ECG No previous ECGs available Glucose, Nova Meter Status: Abnormal Collection Time: 12/03/24 10:45 AM Result Value Ref Range POC-GLUCOSE 156 (H) 70 - 110 mg/dL Liner Checker [id number] ECG 12 lead Status: None (In process) Collection Time: 12/03/24 2:16 PM Result Value Ref Range VENTRICULAR RATE EKG/MIN 136 BPM ATRIAL RATE (MCT) 73 BPM QRS-INTERVAL (MSEC) 88 ms QT Interval 304 ms QTC Interval 457 ms R AXIS (MCT) -11 degrees T Wave [place] -58 degrees [place] Diagnosis Atrial fibrillation with rapid ventricular response Possible Anterolateral infarct , age undetermined Abnormal ECG When compared with ECG of 03-DEC-2024 10:39, Atrial fibrillation has replaced Sinus rhythm Radiology Radiology Results (last day) Procedure Component Value Units Date/Time CT bone marrow biopsy [[id number]] Collected: 12/02/24 4671 Order Status: Completed Updated: 12/02/24 7973 Narrative: CT GUIDED BONE MARROW ASPIRATION AND CORE BIOPSY. HISTORY: Pancytopenia. ATTENDING RADIOLOGIST: Dr. Haseeb Gil. PHYSICIAN JAVA ENGINEER: Sandra Ramsey PA-C PROCEDURE: After informed consent [...] Date/Time Body Fluid Culture + Gram Stain [[id number]] Collected: 11/30/24 160 Order Status: Completed Specimen: Peritoneal Fluid from Body Fluid Updated: 12/03/24 0907 Result No growth Gram Stain Result No organisms seen No cells seen Narrative: Specimen Description: peritoneal fluid Anaerobic Culture [[id number]] Collected: 11/30/24 1603 Order Status: Completed Specimen: Peritoneal Fluid from Body Fluid Updated: 12/03/24 0842 Result No Anaerobic growth Narrative: Specimen Description: peritoneal fluid Body Fluid/CSF - Path Review () [[id number]] Collected: 11/30/24 1603 Order Status: Completed Specimen: Peritoneal Fluid from Body Fluid Updated: 12/03/24 0654 SENT TO PATHOLOGY FOR REVIEW Yes Scan Result Mesothelial cells. MD German 12/02/2024 Blood Culture [[id number]] Collected: 11/30/24 0340 Order Status: Completed Specimen: Blood from Arm, Left Updated: 12/03/24 0501 Result No growth in 3 days Blood Culture [[id number]] Collected: 11/30/24 0342 Order Status: Completed Specimen: Blood from Arm, Right Updated: 12/03/24 0501 Result No growth in 3 days AFB Culture And Stain [[id number]] Collected: 11/30/24 1603 Order Status: Completed Specimen: Peritoneal Fluid from Body Fluid Updated: 12/01/24 1410 AFB Smear No acid fast bacilli seen Narrative: Specimen Description: peritoneal fluid Glucose, body fluid [[id number]] Collected: 11/30/24 160 Order Status: Completed Specimen: Body Fluid from Peritoneal Fluid Updated: 12/01/24 0710 Glucose, Body Fluid 107 mg/dL BODY FLUID TYPE Peritoneal Narrative: This test has been modified from the curtain hemmer automatic's instructions and its performance characteristics were determined by the laboratory. The reference intervals and other method performance specifications are unavailable for this test. It is recommended to interpret body fluid concentrations in comparison with the corresponding serum or plasma concentrations and to integrate test results into the clinical context. Protein, body fluid [[id number]] Collected: 11/30/241602 Order Status: Completed Specimen: Body Fluid from Peritoneal Fluid Updated: 12/01/24 0710 Protein, Fluid 1.9 g/dL BODY FLUID TYPE Peritoneal Narrative: This test has been modified from the curtain hemmer automatic's instructions and its performance characteristics were determined by the laboratory. The reference intervals and other method performance specifications are unavailable for this test. It is recommended to interpret body fluid concentrations in comparison with the corresponding serum or plasma concentrations and to integrate test results into the clinical context. Urine Culture [[id number]] Collected: 11/30/24 1135 Order Status: Completed Specimen: Urine, Clean Catch Updated: 12/01/24 0649 Result Recollect Specimen - 3 or more organisms suggests contamination Body fluid cell count with differential [[id number]] (Abnormal) Collected: 11/30/24 160 Order Status: Completed [...] fluids are not defined. DIFFERENTIAL, BODY FLUID [[id number]] Collected: 11/30/24 1603 Order Status: Completed Specimen: Peritoneal Fluid from Body Fluid Updated: 11/30/24 2049 Neutrophils Fluid 5 % Lymphocytes Fluid 46 % Unidentified Mononuclear Cells BF 49 % Lactate dehydrogenase (LDH), body fluid [[id number]] Collected: 11/30/24 1603 Order Status: Completed Specimen: Peritoneal Fluid from Body Fluid Updated: 11/30/24 1819 LDH, Fluid 71 U/L BODY FLUID TYPE Peritoneal Narrative: This test has been modified from the curtain hemmer automatic's instructions and its performance characteristics were determined by the laboratory. The reference intervals and other method performance specifications are unavailable for this test. It is recommended to interpret body fluid concentrations in comparison with the corresponding serum or plasma concentrations and to integrate test results into the clinical context. Fungus Culture W/ROSA MARAI Or Nimisha Ink [[id number]] Collected: 11/30/24 1603 Order Status: Completed Specimen: Peritoneal Fluid from Body Fluid Updated: 11/30/24 1754 ROSA MARIA Prep No fungal elements seen Narrative: Specimen Description: peritoneal fluid Total Protein, Body Fluid(SENDOUT) [[id number]] Collected: 11/30/24 1603 Order Status: Canceled Specimen: Peritoneal Fluid from Body Fluid Updated: 11/30/24 1634 Glucose Body Fluid(SENDOUT) [[id number]] Collected: 11/30/24 1603 Order Status: Canceled Specimen: Peritoneal Fluid from Body Fluid Updated: 11/30/24 1634 Urine Culture [[id number]] Collected: 11/30/24 1135 Order Status: Canceled Specimen: [...] and lisinopril. Per nephrology there is no OPTOMETRY TEACHER indication at this time. Ultrasound renal on [...] team including nurse practitioner, nurse, RT, wire rope sales representative, pharmacist, and case management during multidisciplinary round. I Dr.Hazim Jeramy MD, have personally evaluated the patient and performed a fqdb-ll-qnwa diagnostic evaluation on this patient; I have Obtained history, performed physical examination, reviewed laboratory studies. I have reviewed images independent of radiologist. I have actively directed the medical care, formulated diagnosis, and the plan of care. Patient requires a high complexity of decision making for assessment. Voice superintendent electric power technology ([employer]) is used for dictation of this note and sound-alike words might be erroneously placed despite reviewing the note for accuracy. Errors in dictation may reflect use of voice recognition software and not all errors in superintendent electric power may have been detected prior to signing. It may contain errors and words that were not intended to be used. Please contact the provider for errors or clarifications. * Deysi Foss MD - 12/03/2024 11:11 AM EDTAssociated Order(s): FS_MODEL_IP IP CONSULT TO ELECTROPHYSIOLOGY EP Consult Note Patient Name: Mary Coronel Admission Date: 11/30/2024 Primary Care Provider: [facility] Find[facility]Doc Chief Complaint/Reason for Consult: No chief complaint on file. History of Present Illness: Mary Coronel is a 64 y.o. female, admitted on: 11/30/2024 1:43 AM. presented to [facility] with swollen abdomen, abdominal discomfort and [...] 2.5 mg 2.5 mg nebulization Q6H PRN Ablert Garcia MD ammonium lactate (LAC-HYDRIN) lotion 12% [...] Culture And Stain AFB Culture And Stain [facility] Non-Ointment Mill Tender Cytology [facility] Non-Ointment [employer] Cytology DIFFERENTIAL, BODY FLUID DIFFERENTIAL, BODY FLUID Body Fluid/CSF - Path Review (SJ) Body Fluid/CSF - Path Review () [facility] BONE MARROW SMEAR, ASPIRATION, AND STAIN [facility] BONE MARROW SMEAR, ASPIRATION, AND STAIN [...] BODY REMOVAL; Surgeon: Scott Daley MD; Location: [facility]; Service: Gastroenterology; Laterality: N/A; Allergies: [...] Normal range of motion. Integumentary: Warm, Dry, [place]. Neurologic: No obvious focal deficit Psychiatric: Cooperative, Appropriate mood & affect. Labs, Imaging, and Other Studies: Echo Results (last 7 days) Procedure Component Value Units Date/Time ECHO COMPLETE (DOPPLER / COLOR) W OR WO CONTRAST [[id number]] Collected: 11/30/24 0725 Order Status: Completed Updated: 11/30/24 1046 Narrative: TRANSTHORACIC ECHOCARDIOGRAPHY REPORT Demographics Patient Name: RIN JONES : 1960 Age: 64 year(s) Corporate ID Number: [id number] Gender Female Order Processing Clerk: Giovanna Rock Height: 67 inches [facility] Referring Physician: HUEY HURTADO Weight: 225 pounds Interpreting JESSICA RAYMOND MD BMI: 35.24 kg/m^2 Physician: Date of Service: 11/30/2024 Blood Pressure: 118/59 mmHg Room Number: 579 Type of Study: TTE procedure: ECHO COMPLETE (DOPPLER / COLOR) W OR WO CONTRAST. Patient Status: Routine IP [facility] History/Tech Notes: [...] 1.35 m/s E/A ratio: 0.97 m/s Volume pnjamwbec984.99 LV length: 8.51 cm ml Volume dwvycxrq89.96 ml LVOT diameter: 1.79 cm Normal sized [...] Valve TR velocity: 2.51 m/s TR gradient: 25.05872 mmHg Estimated RAP: 3 mmHg RVSP: 28.12 [...] (DOPPLER / COLOR) W OR WO CONTRAST [[id number]] Collected: 11/30/24724 Order Status: Completed Updated: 11/30/24 104 Narrative: TRANSTHORACIC ECHOCARDIOGRAPHY REPORT Demographics Patient Name: RIN JONES : 1960 Age: 64 year(s) Corporate ID Number: [id number] Gender Female Order Processing Clerk: Giovanna Rock Height: 67 inches [facility] Referring Physician: HUEY HURTADO Weight: 225 [...] 1.35 m/s E/A ratio: 0.97 m/s Volume srpivyhas901.99 LV length: 8.51 cm ml Volume krgalajw66.96 ml LVOT diameter: 1.79 cm Normal sized [...] Valve TR velocity: 2.51 m/s TR gradient: 25.53574 mmHg Estimated RAP: 3 mmHg RVSP: 28.12 [...] imaging. Assessment and Plan: *Paroxysmal Atrial Fib [id number] of 2 also have some wide-complex tachycardia [...] Violence: Unknown (05/06/2023) Received from [facility] Abuse Screen Unsafe at Home or Work/School: [...] Component Value Units Date/Time Ultrasound renal limited [[id number]] Collected: 11/30/241645 Order Status: Completed Updated: 11/30/241648 [...] dictated by Ronnell Tom MD Ultrasound liver [[id number]] Collected: 11/30/24 1643 Order Status: Completed Updated: [...] and dictated by SABINE Yang. US paracentesis [[id number]] Collected: 11/30/24 1637 Order Status: Completed Updated: 11/30/241654 Narrative: ULTRASOUND-GUIDED PARACENTESIS HISTORY: Ascites ATTENDING PHYSICIAN: Dr. Haseeb Gil PHYSICIAN JAVA ENGINEER: Gabriel Velasco PA-C FINDINGS: After informed consent [...] Gabriel Velasco PA-C. XR chest AP portable [[id number]] Collected: 11/30/24 1215 Order Status: Completed Updated: [...] Transcribed by Marielos Sotelo PA-C. renal complete [[id number]] Order Status: Canceled Admission on 11/30/2024 Component [...] the potential of erroneous results. Protocols Followed Liner Checker 11/30/2024 [id number] Final Iron 11/30/2024 64 50 - 170 ug/dL Final Vitamin D 25-Hydroxy 11/30/2024 22.0 (L) 30 - 80 ng/mL Final Vitamin B12 11/30/2024 678 213 - 816 pg/mL Final Color, UA 11/30/2024 Light Yellow Final Clarity, UA 11/30/2024 Turbid (A) Clear Final Specific [place], UA 11/30/2024 1.011 1.005 - 1.030 Final [...] potential of erroneous results. Notified Nurse RBV Liner Checker 11/30/2024 [id number] Final WBC, UA 11/30/2024 21-50 (A) None [...] + Ext: +++Pedal edema , no cyanosis,PPP REPAIR ARMATURE WINDER: Alert,Oriented. Cranial nerves intact, No focal deficit [...] Range POC-GLUCOSE 96 70 - 110 mg/dL Liner Checker [id number] Hemoglobin A1c Status: Normal Collection Time: 11/30/24 [...] renal function - No emergent need of OPTOMETRY TEACHER - Monitor H/H and transfuse for Hgb [...] results. This was performed at [facility] several year ago. She takes Plavix for her CAD s/p stents 4-5 years ago. She also takes ASA. She has not seen a GI provider since 2021. She has an appt with Dr. Law Cote in [place] on December 07. No recent abdominal imaging. [...] or Isolated: 0 Received from [facility] Abuse Screen Housing Stability: Low Risk (11/30/2024) [...] Range POC-GLUCOSE 96 70 - 110 mg/dL Liner Checker [id number] Radiology Results (last 3 days) No results [...] Description 01/27/2025 10:45 AM EDT Office Visit [facility] Electrophysiology [address] [place] [address] Deysi Foss MD [address] [place] [address] Pending Results Name Type Priority Associated Diagnoses [...] GLUCOSE POC Routine 12/13/2024 5:46 AM EDT [facility] CBC SCAN Routine 12/13/2024 3:15 AM [...] GLUCOSE POC Routine 12/12/2024 5:43 AM EDT [facility] CBC SCAN Routine 12/12/2024 3:47 AM [...] POC Routine 12/01/2024 10:3 2 AM EDT AL EGD FLEXIBLE FOREIGN BODY REMOVAL 12/01/2024 8:55 [...] Routine 11/30/2024 4:03 PM EDT [facility] CYTOLOGY ([facility]) AP Routine 11/30/2024 4:03 PM EDT [...] Glucose, Nova Meter (12/14/2024 3:41 PM EDT) [facility] POC-GLUCOSE 203(H) 70 - 110 mg/dL 12/14/2024 3:42 PM EDT [facility] Comment: In the event of poor peripheral blood flow, venous or arterial blood should be used due to the potential of erroneous results. Notified Nurse RBV Liner Checker [id number] 12/14/2024 3:42 PM EDT [facility] Blood WHOLE BLOOD / Unknown 12/14/2024 3:41 PM EDT 12/14/2024 3:42 PM EDT Narrative [facility] - 12/14/2024 3:42 PM EDT Liner Checker ID is - [id number] David Coffman PA-C POINT OF CARE TEST ORDERABLES Final Result Performing Organization Address [facility] de Phone Number [facility] [address] [phone] * (ABNORMAL) Glucose, Nova Meter (12/14/2024 10:29 AM EDT) [facility] POC-GLUCOSE 215(H) 70 - 110 mg/dL 12/14/2024 10:30 AM EDT [facility] Comment: In the event of poor peripheral blood flow, venous or arterial blood should be used due to the potential of erroneous results. Notified Nurse RBV Liner Checker [id number] 12/14/2024 10:30 AM EDT [facility] Blood WHOLE BLOOD / Unknown 12/14/2024 10:29 AM EDT 12/14/2024 10:30 AM EDT Narrative [facility] - 12/14/2024 10:30 AM EDT Liner Checker ID is - [id number] David Coffman PA-C POINT OF CARE TEST ORDERABLES Final Result Performing Organization Address [facility] de Phone Number [facility] [address] [phone] * ECG 12 lead (12/14/2024 9:10 AM EDT) Pathologist [facility] VENTRICULAR RATE EKG/MIN 89 BPM GE MUSE ATRIAL RATE (MCT) 89 BPM GE MUSE AL Interval 146 ms GE MUSE QRS-INTERVAL (MSEC) 86 ms GE MUSE QT Interval 432 ms GE MUSE QTC Interval 525 ms GE MUSE P [place] 34 degrees GE MUSE R AXIS (MCT) -13 degrees GE MUSE T Wave [place] -2 degrees GE MUSE [place] Diagnosis Normal sinus rhythm Septal infarct (cited on or before 14-DEC-2024 ) Confirmed by DEYSI FOSS M.D. ([id number]) on 12/14/2024 5:07:26 PM GE MUSE 12/14/2024 9:10 AM EDT 12/14/2024 5:07 PM EDT Deysi Foss MD ECG ORDERABLES Final Result GE MUSE * (ABNORMAL) Glucose, Nova Meter (12/14/2024 4:24 AM EDT) POC-GLUCOSE 140(H) 70 - 110 mg/dL 12/14/2024 4:26 AM EDT [facility] Comment: In the event of poor peripheral blood flow, venous or arterial blood should be used due to the potential of erroneous results. Protocols Followed Liner Checker [id number] 12/14/2024 4:26 AM EDT [facility] Blood WHOLE BLOOD / Unknown 12/14/2024 4:24 AM EDT 12/14/2024 4:26 AM EDT Narrative [facility] - 12/14/2024 4:26 AM EDT Liner Checker ID is - [id number] us David Coffman PA-C POINT OF CARE TEST ORDERABLES Final Result Performing Organization Address City/[facility]/ZIP Co de Phone Number [facility] [address] [phone] * (ABNORMAL) Comprehensive metabolic panel (12/14/2024 2:54 AM EDT) Sodium 145 136 - 145 meq/L 12/14/2024 4:13 AM EDT [facility] Potassium 3.5 3.4 - 5.1 meq/L 12/14/2024 4:13 AM EDT [facility] Chloride 109 98 - 112 meq/L 12/14/2024 4:13 AM EDT [facility] CO2 27 22 - 29 meq/L 12/14/2024 4:13 AM [facility] Calcium 8.6 8.4 - 10.2 mg/dL 12/14/2024 4:13 AM [facility] Glucose 146(H) 82 - 115 mg/dL 12/14/2024 4:13 AM [facility] BUN 67.7(H) 9.8 - 20.1 mg/dL 12/14/2024 4:13 AM [facility] Creatinine 2.22(H) 0.57 - 1.11 mg/dL 12/14/2024 4:13 AM [facility] BUN/Creatinine 30(H) 8 - 20 12/14/2024 4:13 AM [facility] eGFR (mL/min/1.73m2) 25(L) >=60 mL/min/1. 73m2 12/14/2024 4:13 AM [facility] Albumin 3.2(L) 3.5 - 5.0 g/dL 12/14/2024 4:13 AM [facility] Alkaline Phosphatase 56 40 - 150 U/L 12/14/2024 4:13 AM [facility] ALT 21 <=34 U/L 12/14/2024 4:13 AM [facility] Comment: ALT2 reagent used for testing does not contain P5P supplementation and therefore may miss ALT elevations in patients with B6 deficiency. This population may be as high as 10% in the [place], with risk factors including malabsorption, drug interactions, and alcoholic hepatitis. AST 52(H) 11 - 34 U/L 12/14/2024 4:13 AM [facility] Comment: AST2 reagent used for testing does not contain P5P supplementation and therefore may miss AST elevations in patients with B6 deficiency. This population may be as high as 10% in the [place], with risk factors including malabsorption, drug interactions, and alcoholic hepatitis. Total Bilirubin 0.9 0.2 - 1.2 mg/dL 12/14/2024 4:13 AM [facility] Protein, Total 5.9(L) 6.4 - 8.3 g/dL 12/14/2024 4:13 AM [facility] Globulin 2.7 2.5 - 4.1 g/dL 12/14/2024 4:13 AM EDT [facility] Anion Gap 13(H) 4 - 12 12/14/2024 4:13 AM EDT [facility] A/G Ratio 1.2 0.7 - 1.9 12/14/2024 4:13 AM EDT [facility] Osmolality Calc 311.0 mOsm/kg 4:13 AM EDT [facility] Blood Venipuncture / Unknown 12/14/2024 2:54 AM EDT 12/14/2024 3:26 AM EDT David Coffman PA-C LAB BLOOD ORDERABLES Final Re sult [facility] [address] [phone] * (ABNORMAL) CBC with automated diff (12/14/2024 2:54 AM EDT) WBC 1.4(LL) 4.0 - 10.0 K/ L 12/14/2024 3:45 AM EDT [facility] RBC 2.45(L) 3.93 - 5.22 M/ L 12/14/2024 3:45 AM EDT [facility] Hemoglobin 7.6(L) 11.2 - 15.7 GM/DL 12/14/2024 3:45 AM EDT [facility] Hematocrit 24.1(L) 34.1 - 44.9 % 12/14/2024 3:45 AM EDT [facility] MCV 98(H) 79 - 95 fL 12/14/2024 3:45 AM EDT [facility] MCH 31.0 25.6 - 32.2 pg 12/14/2024 3:45 AM EDT [facility] MCHC 31.5(L) 32.2 - 35.5 GM/DL 12/14/2024 3:45 AM EDT [facility] RDW 16.3(H) 11.7 - 14.4 % 12/14/2024 3:45 AM EDT [facility] Platelets 51(L) 140 - 375 K/CU MM 12/14/2024 3:45 AM EDT [facility] MPV 12.3 9.4 - 12.3 fL 12/14/2024 3:45 AM EDT [facility] % Neutros 54 34 - 71 % 12/14/2024 3:45 AM EDT [facility] % Lymphs 32 19 - 52 % 12/14/2024 3:45 AM EDT [facility] % Monos 14(H) 5 - 13 % 12/14/2024 3:45 AM EDT [facility] % Eos 0(L) 1 - 6 % 12/14/2024 3:45 AM EDT [facility] % Baso 1 0 - 1 % 12/14/2024 3:45 AM EDT [facility] NRBC Absolute <0.01 0 - 0.012 K/ul 12/14/2024 3:45 AM EDT [facility] # Neutros 0.76(L) 1.56 - 6.13 K/ L 12/14/2024 3:45 AM EDT [facility] # Lymphs 0.45(L) 1.18 - 3.74 K/ L 12/14/2024 3:45 AM EDT [facility] # Monos 0.19(L) 0.24 - 0.86 K/ L 12/14/2024 3:45 AM EDT [facility] # Eos <0.03(L) 0.04 - 0.36 K/ L 12/14/2024 3:45 AM EDT [facility] # Baso <0.03 0.01 - 0.08 K/ L 12/14/2024 3:45 AM EDT [facility] Immature Granulocytes-Re lative 0.00(L) 0.01 - 0.43 % 12/14/2024 3:45 AM EDT [facility] # IG <0.03 0.00 - 0.03 K/uL 12/14/2024 3:45 AM T [facility] Blood Venipuncture / Unknown 12/14/2024 2:54 AM EDT 12/14/2024 3:27 AM EDT Narrative [facility] - 12/14/2024 3:45 AM EDT [...] PA-C LAB BLOOD ORDERABLES Final Re sult [facility] [address] [phone] * (ABNORMAL) Glucose, Nova Meter (12/13/2024 8:20 PM EDT) POC-GLUCOSE 186(H) 70 - 110 mg/dL 12/13/2024 8:21 PM EDT [facility] Comment: In the event of poor peripheral blood flow, venous or arterial blood should be used due to the potential of erroneous results. Protocols Followed Liner Checker [id number] 12/13/2024 8:21 PM EDT [facility] Blood WHOLE BLOOD / Unknown 12/13/2024 8:20 PM EDT 12/13/2024 8:21 PM EDT Narrative [facility] - 12/13/2024 8:21 PM EDT Liner Checker ID is - [id number] us David Coffman PA-C POINT OF CARE TEST ORDERABLES Final Result Performing Organization Address [facility]/ZIP Co de Phone Number [facility] 1 [place] [address], [facility] [phone] * (ABNORMAL) Glucose, Nova Meter (12/13/2024 4:24 PM EDT) POC-GLUCOSE 156(H) 70 - 110 mg/dL 12/13/2024 4:25 PM EDT [facility] Comment: In the event of poor peripheral blood flow, venous or arterial blood should be used due to the potential of erroneous results. Notified Nurse RBV Liner Checker [id number] 12/13/2024 4:25 PM EDT [facility] Blood WHOLE BLOOD / Unknown 12/13/2024 4:24 PM EDT 12/13/2024 4:25 PM EDT Narrative [facility] - 12/13/2024 4:25 PM EDT Liner Checker ID is - [id number] David Coffman PA-C POINT OF CARE TEST ORDERABLES Final Result Performing Organization Address [facility] Co de Phone Number [facility] [address] [phone] * ECG 12 lead (12/13/2024 1:14 PM EDT) VENTRICULAR RATE EKG/MIN 86 BPM GE MUSE ATRIAL RATE (MCT) 86 BPM GE MUSE AL Interval 144 ms GE MUSE QRS-INTERVAL (MSEC) 86 ms GE MUSE QT Interval 384 ms GE MUSE QTC Interval 459 ms GE MUSE P [place] 46 degrees GE MUSE R AXIS (MCT) -4 degrees GE MUSE T Wave [place] 43 degrees GE MUSE [place] Diagnosis Normal sinus rhythm Poor R wave progression Confirmed by Aleksandr ROBIN, SANJIV ([id number]) on 12/14/2024 1:01:45 AM GE MUSE 12/13/2024 1:14 PM EDT 12/14/2024 1:01 AM EDT Deysi Foss MD ECG ORDERABLES Final Result Performing Organization Address [facility] Co de Phone Number GE MUSE * (ABNORMAL) Glucose, Nova Meter (12/13/2024 1:07 PM EDT) POC-GLUCOSE 235(H) 70 - 110 mg/dL 12/15/2024 12:32 AM EDT [facility] Comment:In the event of poor peripheral blood flow, venous or arterial blood should be used due to the potential of erroneous results. Liner Checker [id number] 12/15/2024 12:32 AM EDT [facility] Blood WHOLE BLOOD / Unknown 12/13/2024 1:07 PM EDT 12/15/2024 12:32 AM EDT Narrative [facility] - 12/15/2024 12:32 AM EDT Liner Checker ID is - [id number] [facility] Andry VALDIVIA-C POINT OF CARE TEST ORDERABLES Final Result Performing Organization Address [facility] Phone Number [facility] [address] [phone] * (ABNORMAL) Glucose, Nova Meter (12/13/2024 11:15 AM EDT) POC-GLUCOSE 221(H) 70 - 110 mg/dL 12/13/2024 11:17 AM EDT [facility] Comment:In the event of poor peripheral blood flow, venous or arterial blood should be used due to the potential of erroneous results. Liner Checker [id number] 12/13/2024 11:17 AM EDT [facility] Blood WHOLE BLOOD / Unknown 12/13/2024 11:15 AM EDT 12/13/2024 11:17 AM EDT Narrative [facility] - 12/13/2024 11:17 AM EDT Liner Checker ID is - [id number] David Andry MCELROYC POINT OF CARE TEST ORDERABLES Final Result Performing Organization Address [facility] Phone Number [facility] 1 [place] [address], [facility] [phone] * (ABNORMAL) Glucose, Nova Meter (12/13/2024 5:46 AM EDT) POC-GLUCOSE 127(H) 70 - 110 mg/dL 12/13/2024 5:48 AM EDT [facility] Comment: In the event of poor peripheral blood flow, venous or arterial blood should be used due to the potential of erroneous results. Protocols Followed Notified Nurse RBV Liner Checker [id number] 12/13/2024 5:48 AM EDT [facility] Blood WHOLE BLOOD / Unknown 12/13/2024 5:46 AM EDT 12/13/2024 5:48 AM EDT Narrative [facility] - 12/13/2024 5:48 AM EDT Liner Checker ID is - [id number] us David Coffman PA-C POINT OF CARE TEST ORDERABLES Final Result Performing Organization Address [facility] de Phone Number [facility] [address] [phone] * (ABNORMAL) CBC Scan (12/13/2024 3:15 AM EDT) Pathologist [facility] Platelet Estimate Decreased (A) Adequate 12/13/2024 4:55 AM EDT [facility] RBC Morphology abnormal( A) Normal 12/13/2024 4:55 AM EDT [facility] Anisocytosis 1+ 12/13/2024 4:55 AM EDT [facility] Hypochromia 1+ 12/13/2024 4:55 AM EDT [facility] Ovalocytes 1+ 12/13/2024 4:55 AM EDT [facility] Blood Venipuncture / Unknown 12/13/2024 3:15 AM EDT 12/13/2024 3:27 AM EDT Venkatesh Stephen MD LAB BLOOD ORDERABLES Final Resul t Performing Organization Address [facility] de Phone Number [facility] [address] [phone] * (ABNORMAL) Hepatic function panel (12/13/2024 3:15 AM EDT) Pathologist [facility] Protein, Total 5.7(L) 6.4 - 8.3 g/dL 12/13/2024 4:13 AM EDT [facility] Albumin 3.1(L) 3.5 - 5.0 g/dL 12/13/2024 4:13 AM EDT [facility] Total Bilirubin 0.8 0.2 - 1.2 mg/dL 12/13/2024 4:13 AM EDT [facility] Bilirubin, Direct 0.4 0.0 - 0.5 mg/dL 12/13/2024 4:13 AM EDT [facility] Alkaline Phosphatase 53 40 - 150 U/L 12/13/2024 4:13 AM EDT [facility] Globulin 2.6 2.5 - 4.1 g/dL 12/13/2024 4:13 AM EDT [facility] A/G Ratio 1.2 0.7 - 1.9 12/13/2024 4:13 AM EDT [facility] AST 42(H) 11 - 34 U/L 12/13/2024 4:13 AM EDT [facility] Comment: AST2 reagent used for testing does not contain P5P supplementation and therefore may miss AST elevations in patients with B6 deficiency. This population may be as high as 10% in the [place], with risk factors including malabsorption, drug interactions, and alcoholic hepatitis. ALT 16 <=34 U/L 12/13/2024 4:13 AM EDT [facility] Comment: ALT2 reagent used [...] ORDERABLES Final Resu lt Performing Organization Address City/State/[facility] Co de Phone Number [facility] [address] [phone] * (ABNORMAL) CBC with automated diff (12/13/2024 3:15 AM EDT) WBC 1.4(LL) 4.0 - 10.0 K/ L 12/13/2024 3:40 AM EDT [facility] RBC 2.42(L) 3.93 - 5.22 M/ L 12/13/2024 3:40 AM EDT [facility] Hemoglobin 7.4(L) 11.2 - 15.7 GM/DL 12/13/2024 3:40 AM EDT [facility] Hematocrit 23.4(L) 34.1 - 44.9 % 12/13/2024 3:40 AM EDT [facility] MCV 97(H) 79 - 95 fL 12/13/2024 3:40 AM EDT [facility] MCH 30.6 25.6 - 32.2 pg 12/13/2024 3:40 AM EDT [facility] MCHC 31.6(L) 32.2 - 35.5 GM/DL 12/13/2024 3:40 AM EDT [facility] RDW 16.4(H) 11.7 - 14.4 % 12/13/2024 3:40 AM EDT [facility] Platelets 52(L) 140 - 375 K/CU MM 12/13/2024 3:40 AM EDT [facility] MPV 12.1 9.4 - 12.3 fL 12/13/2024 3:40 AM EDT [facility] % Neutros 56 34 - 71 % 12/13/2024 3:40 AM EDT [facility] % Lymphs 28 19 - 52 % 12/13/2024 3:40 AM EDT [facility] % Monos 15(H) 5 - 13 % 12/13/2024 3:40 AM EDT [facility] % Eos 0(L) 1 - 6 % 12/13/2024 3:40 AM EDT [facility] % Baso 1 0 - 1 % 12/13/2024 3:40 AM EDT [facility] NRBC Absolute <0.01 0 - 0.012 K/ul 12/13/2024 3:40 AM EDT [facility] # Neutros 0.80(L) 1.56 - 6.13 K/ L 12/13/2024 3:40 AM EDT [facility] # Lymphs 0.40(L) 1.18 - 3.74 K/ L 12/13/2024 3:40 AM EDT [facility] # Monos 0.21(L) 0.24 - 0.86 K/ L 12/13/2024 3:40 AM EDT [facility] # Eos <0.03(L) 0.04 - 0.36 K/ L 12/13/2024 3:40 AM EDT [facility] # Baso <0.03 0.01 - 0.08 K/ L 12/13/2024 3:40 AM EDT [facility] Immature Granulocytes-Re lative 0.00(L) 0.01 - 0.43 % 12/13/2024 3:40 AM EDT [facility] # IG <0.03 0.00 - 0.03 K/uL 12/13/2024 3:40 AM EDT [facility] Blood Venipuncture / Unknown 12/13/2024 3:15 AM EDT 12/13/2024 3:27 AM EDT Narrative [facility] - 12/13/2024 3:40 AM EDT [...] MD LAB BLOOD ORDERABLES Final Resul t [facility] [address] [phone] * (ABNORMAL) Basic Metabolic Panel (12/13/2024 3:15 AM EDT) Sodium 147(H) 136 - 145 meq/L 12/13/2024 4:13 AM EDT [facility] Potassium 3.5 3.4 - 5.1 meq/L 12/13/2024 4:13 AM EDT [facility] CO2 27 22 - 29 meq/L 12/13/2024 4:13 AM EDT [facility] Chloride 110 98 - 112 meq/L 12/13/2024 4:13 AM EDT [facility] Glucose 135(H) 82 - 115 mg/dL 12/13/2024 4:13 AM EDT [facility] BUN 71.9(H) 9.8 - 20.1 mg/dL 12/13/2024 4:13 AM EDT [facility] Creatinine 2.29(H) 0.57 - 1.11 mg/dL 12/13/2024 4:13 AM EDT [facility] BUN/Creatinine 31(H) 8 - 20 12/13/2024 4:13 AM EDT [facility] Calcium 8.5 8.4 - 10.2 mg/dL 12/13/2024 4:13 AM EDT [facility] Anion Gap 14(H) 4 - 12 12/13/2024 4:13 AM EDT [facility] eGFR (mL/min/1.73m2) 24(L) >=60 mL/min/1.7 3m2 12/13/2024 4:13 AM EDT [facility] Osmolality Calc 315.6 mOsm/kg 4:13 AM EDT [facility] Blood Venipuncture / Unknown 12/13/2024 3:15 AM EDT 12/13/2024 3:39 AM EDT us Venkatesh Stephen MD LAB BLOOD ORDERABLES Final Resul t [facility] [address] [phone] * (ABNORMAL) Glucose, Nova Meter (12/12/2024 8:01 PM EDT) POC-GLUCOSE 182(H) 70 - 110 mg/dL 12/12/2024 8:02 PM EDT [facility] Comment: In the event of poor peripheral blood flow, venous or arterial blood should be used due to the potential of erroneous results. Protocols Followed Notified Nurse RBV Liner Checker [id number] 12/12/2024 8:02 PM EDT [facility] Blood WHOLE BLOOD / Unknown 12/12/2024 8:01 PM EDT 12/12/2024 8:02 PM EDT Narrative [facility] - 12/12/2024 8:02 PM EDT Liner Checker ID is - [id number] [facility] Andry Meghna PA-C POINT OF CARE TEST ORDERABLES Final Result Performing Organization Address [facility] de Phone Number [facility] [address] [place] [address], [facility] [phone] * (ABNORMAL) Glucose, Nova Meter (12/12/2024 3:51 PM EDT) POC-GLUCOSE 163(H) 70 - 110 mg/dL 12/12/2024 3:52 PM EDT [facility] Comment: In the event of poor peripheral blood flow, venous or arterial blood should be used due to the potential of erroneous results. Notified Nurse RBV Liner Checker [id number] 12/12/2024 3:52 PM EDT [facility] Blood WHOLE BLOOD / Unknown 12/12/2024 3:51 PM EDT 12/12/2024 3:52 PM EDT [facility] - 12/12/2024 3:52 PM EDT Liner Checker ID is - [id number] [facility] Andry Doran PA-C POINT OF CARE TEST ORDERABLES Final Result Performing Organization Address [facility] de Phone Number [facility] [address] [phone] * (ABNORMAL) Glucose, Nova Meter (12/12/2024 10:31 AM EDT) POC-GLUCOSE 221(H) 70 - 110 mg/dL 12/12/2024 10:32 AM EDT [facility] Comment: In the event of poor peripheral blood flow, venous or arterial blood should be used due to the potential of erroneous results. Notified Nurse RBV Liner Checker [id number] 12/12/2024 10:32 AM EDT [facility] Blood WHOLE BLOOD / Unknown 12/12/2024 10:31 AM EDT 12/12/2024 10:32 AM EDT [facility] - 12/12/2024 10:32 AM EDT Liner Checker ID is - [id number] David Coffman PA-C POINT OF CARE TEST ORDERABLES Final Result Performing Organization Address City/[facility]/ZIP Co de Phone Number [facility] [address] [phone] * ECG 12 lead (12/12/2024 9:22 AM EDT) VENTRICULAR RATE EKG/MIN 87 BPM GE MUSE ATRIAL RATE (MCT) 87 BPM GE MUSE AL Interval 140 ms GE MUSE QRS-INTERVAL (MSEC) 90 ms GE MUSE QT Interval 414 ms GE MUSE QTC Interval 498 ms GE MUSE P [place] 26 degrees GE MUSE R AXIS (MCT) -17 degrees GE MUSE T Wave [place] 24 degrees GE MUSE [place] Diagnosis Normal sinus rhythm Leftward axis When compared with ECG of 11-DEC-2024 10:29, No significant change was found Confirmed by Aleksandr ROBIN STEVE ([id number]) on 12/12/2024 11:05:42 PM GE MUSE 12/12/2024 9:22 AM EDT 12/12/2024 11:05 PM EDT Deysi Foss MD ECG ORDERABLES Final Result Performing Organization Address [facility] de Phone Number GE MUSE * (ABNORMAL) Glucose, Nova Meter (12/12/2024 5:43 AM EDT) POC-GLUCOSE 149(H) 70 - 110 mg/dL 12/12/2024 5:44 AM EDT [facility] Comment: In the event of poor peripheral blood flow, venous or arterial blood should be used due to the potential of erroneous results. Notified Nurse RBV Liner Checker [id number] 12/12/2024 5:44 AM EDT [facility] Blood WHOLE BLOOD / Unknown 12/12/2024 5:43 AM EDT 12/12/2024 5:44 AM EDT Narrative [facility] - 12/12/2024 5:44 AM EDT Liner Checker ID is - [id number] David Coffman PA-C POINT OF CARE TEST ORDERABLES Final Result Performing Organization Address [facility]/ZIP Co de Phone Number [facility] [address] [phone] * (ABNORMAL) CBC Scan (12/12/2024 3:47 AM EDT) Pathologist [facility] Platelet Estimate Decreased (A) Adequate 12/12/2024 6:07 AM EDT [facility] RBC Morphology abnormal( A) Normal 12/12/2024 6:07 AM EDT [facility] Anisocytosis 1+ 12/12/2024 6:07 AM EDT [facility] Hypochromia 1+ 12/12/2024 6:07 AM EDT [facility] Macrocytes 1+ 12/12/2024 6:07 AM EDT [facility] Ovalocytes 1+ 12/12/2024 6:07 AM EDT [facility] Poikilocytes 1+ 12/12/2024 6:07 AM EDT [facility] Blood Venipuncture / Unknown 12/12/2024 3:47 AM EDT 12/12/2024 4:40 AM EDT us Venkatesh Stephen MD LAB BLOOD ORDERABLES Final Resul t Performing Organization Address [facility]/ZIP Co de Phone Number [facility] [address] [phone] * (ABNORMAL) CBC with automated diff (12/12/2024 3:47 AM EDT) Pathologist [facility] WBC 1.4(LL) 4.0 - 10.0 K/ L 12/12/2024 6:07 AM EDT [facility] RBC 2.39(L) 3.93 - 5.22 M/ L 12/12/2024 6:07 AM EDT [facility] Hemoglobin 7.3(L) 11.2 - 15.7 GM/DL 12/12/2024 6:07 AM EDT [facility] Hematocrit 23.2(L) 34.1 - 44.9 % 12/12/2024 6:07 AM EDT [facility] MCV 97(H) 79 - 95 fL 12/12/2024 6:07 AM EDT [facility] MCH 30.5 25.6 - 32.2 pg 12/12/2024 6:07 AM EDT [facility] MCHC 31.5(L) 32.2 - 35.5 GM/DL 12/12/2024 6:07 AM EDT [facility] RDW 16.7(H) 11.7 - 14.4 % 12/12/2024 6:07 AM EDT [facility] Platelets 43(L) 140 - 375 K/CU MM 12/12/2024 6:07 AM EDT [facility] MPV 11.8 9.4 - 12.3 fL 12/12/2024 6:07 AM EDT [facility] % Neutros 57 34 - 71 % 12/12/2024 6:07 AM EDT [facility] % Lymphs 29 19 - 52 % 12/12/2024 6:07 AM EDT [facility] % Monos 13 5 - 13 % 12/12/2024 6:07 AM EDT [facility] % Eos 1 1 - 6 % 12/12/2024 6:07 AM EDT [facility] % Baso 0 0 - 1 % 12/12/2024 6:07 AM EDT [facility] NRBC Absolute <0.01 0 - 0.012 K/ul 12/12/2024 6:07 AM EDT [facility] # Neutros 0.80(L) 1.56 - 6.13 K/ L 12/12/2024 6:07 AM EDT [facility] # Lymphs 0.41(L) 1.18 - 3.74 K/ L 12/12/2024 6:07 AM EDT [facility] # Monos 0.18(L) 0.24 - 0.86 K/ L 12/12/2024 6:07 AM EDT [facility] # Eos <0.03(L) 0.04 - 0.36 K/ L 12/12/2024 6:07 AM EDT [facility] # Baso <0.03 0.01 - 0.08 K/ L 12/12/2024 6:07 AM EDT [facility] Immature Granulocytes-Re lative 0.70(H) 0.01 - 0.43 % 12/12/2024 6:07 AM EDT [facility] # IG <0.03 0.00 - 0.03 K/uL 12/12/2024 6:07 AM EDT [facility] Blood Venipuncture / Unknown 12/12/2024 3:47 AM EDT 12/12/2024 4:40 AM EDT Narrative [facility] - 12/12/2024 6:07 AM EDT [...] MD LAB BLOOD ORDERABLES Final Resul t [facility] [address] [phone] * (ABNORMAL) Basic Metabolic Panel (12/12/2024 3:47 AM EDT) Sodium 144 136 - 145 meq/L 12/12/2024 5:16 AM EDT [facility] Potassium 3.4 3.4 - 5.1 meq/L 12/12/2024 5:16 AM EDT [facility] CO2 26 22 - 29 meq/L 12/12/2024 5:16 AM EDT [facility] Chloride 110 98 - 112 meq/L 12/12/2024 5:16 AM EDT [facility] Glucose 140(H) 82 - 115 mg/dL 12/12/2024 5:16 AM EDT [facility] BUN 70.7(H) 9.8 - 20.1 mg/dL 12/12/2024 5:16 AM EDT [facility] Creatinine 2.28(H) 0.57 - 1.11 mg/dL 12/12/2024 5:16 AM EDT [facility] BUN/Creatinine 31(H) 8 - 20 12/12/2024 5:16 AM EDT [facility] Calcium 8.3(L) 8.4 - 10.2 mg/dL 12/12/2024 5:16 AM EDT [facility] Anion Gap 11 4 - 12 12/12/2024 5:16 AM EDT [facility] eGFR (mL/min/1.73m2) 24(L) >=60 mL/min/1.7 3m2 12/12/2024 5:16 AM EDT [facility] Osmolality Calc 309.9 mOsm/kg 5:16 AM EDT [facility] Blood Venipuncture / Unknown 12/12/2024 3:47 AM EDT 12/12/2024 4:41 AM EDT Venkatesh Stephen MD LAB BLOOD ORDERABLES Final Resul t Performing Organization Address [facility] Co de Phone Number [facility] [address] [phone] * (ABNORMAL) Glucose, Nova Meter (12/11/2024 7:32 PM EDT) [facility] Signature POC-GLUCOSE 159(H) 70 - 110 mg/dL 12/11/2024 7:33 PM EDT [facility] Comment: In the event of poor peripheral blood flow, venous or arterial blood should be used due to the potential of erroneous results. Notified Nurse RBV Liner Checker [id number] 12/11/2024 7:33 PM EDT [facility] Blood WHOLE BLOOD / Unknown 12/11/2024 7:32 PM EDT 12/11/2024 7:33 PM EDT Narrative [facility] - 12/11/2024 7:33 PM EDT Liner Checker ID is - [id number] us David Coffman PA-C POINT OF CARE TEST ORDERABLES Final Result Performing Organization Address City/[facility] Co de Phone Number [facility] [address] [phone] * (ABNORMAL) Glucose, Nova Meter (12/11/2024 4:18 PM EDT) POC-GLUCOSE 156(H) 70 - 110 mg/dL 12/11/2024 4:19 PM EDT [facility] Comment: In the event of poor peripheral blood flow, venous or arterial blood should be used due to the potential of erroneous results. Notified Nurse RBV Liner Checker [id number] 12/11/2024 4:19 PM EDT [facility] Blood WHOLE BLOOD / Unknown 12/11/2024 4:18 PM EDT 12/11/2024 4:19 PM EDT Narrative [facility] - 12/11/2024 4:19 PM EDT Liner Checker ID is - [id number] David VALDIVIA-C POINT OF CARE TEST ORDERABLES Final Result Performing Organization Address [facility] de Phone Number [facility] [address] [phone] * (ABNORMAL) Glucose, Nova Meter (12/11/2024 10:43 AM EDT) Pathologist [facility] POC-GLUCOSE 254(H) 70 - 110 mg/dL 12/11/2024 10:45 AM EDT [facility] Comment: In the event of poor peripheral blood flow, venous or arterial blood should be used due to the potential of erroneous results. Notified Nurse RBV Liner Checker [id number] 12/11/2024 10:45 AM EDT [facility] Blood WHOLE BLOOD / Unknown 12/11/2024 10:43 AM EDT 12/11/2024 10:45 AM EDT Narrative [facility] - 12/11/2024 10:45 AM EDT Liner Checker ID is - [id number] David Coffman PA-C POINT OF CARE TEST ORDERABLES Final Result Performing Organization Address [facility] Co de Phone Number [facility] [address] [place] [id number] [phone] * ECG 12 lead (12/11/2024 10:29 AM EDT) Pathologist [facility] VENTRICULAR RATE EKG/MIN 85 BPM GE MUSE ATRIAL RATE (MCT) 85 BPM GE MUSE AL Interval 142 ms GE MUSE QRS-INTERVAL (MSEC) 92 ms GE MUSE QT Interval 400 ms GE MUSE QTC Interval 476 ms GE MUSE P [place] 34 degrees GE MUSE R AXIS (MCT) -10 degrees GE MUSE T Wave [place] 57 degrees GE MUSE [place] Diagnosis Normal sinus rhythm Minimal voltage criteria [...] Glucose, Nova Meter (12/11/2024 5:15 AM EDT) [facility] POC-GLUCOSE 143(H) 70 - 110 mg/dL 12/11/2024 5:16 AM EDT [facility] Comment: In the event of poor peripheral blood flow, venous or arterial blood should be used due to the potential of erroneous results. Notified Nurse RBV Liner Checker [id number] 12/11/2024 5:16 AM EDT [facility] Blood WHOLE BLOOD / Unknown 12/11/2024 5:15 AM EDT 12/11/2024 5:16 AM EDT Narrative [facility] - 12/11/2024 5:16 AM EDT Liner Checker ID is - [id number] us Venkatesh Stephen MD POINT OF CARE TEST ORDERABLES Fi nal Result [facility] [address] [place] [address], [facility] [phone] * (ABNORMAL) Basic Metabolic Panel (12/11/2024 3:39 AM EDT) Sodium 146(H) 136 - 145 meq/L 12/11/2024 4:25 AM EDT [facility] Potassium 3.7 3.4 - 5.1 meq/L 12/11/2024 4:25 AM EDT [facility] CO2 26 22 - 29 meq/L 12/11/2024 4:25 AM EDT [facility] Chloride 114(H) 98 - 112 meq/L 12/11/2024 4:25 AM EDT [facility] Glucose 154(H) 82 - 115 mg/dL 12/11/2024 4:25 AM EDT [facility] BUN 74.9(H) 9.8 - 20.1 mg/dL 12/11/2024 4:25 AM EDT [facility] Creatinine 2.61(H) 0.57 - 1.11 mg/dL 12/11/2024 4:25 AM EDT [facility] BUN/Creatinine 29(H) 8 - 20 12/11/2024 4:25 AM EDT [facility] Calcium 8.2(L) 8.4 - 10.2 mg/dL 12/11/2024 4:25 AM EDT [facility] Anion Gap 10 4 - 12 12/11/2024 4:25 AM EDT [facility] eGFR (mL/min/1.73m2) 20(L) >=60 mL/min/1.7 3m2 12/11/2024 4:25 AM EDT [facility] Osmolality Calc 315.9 mOsm/kg 4:25 AM EDT [facility] Blood Venipuncture / Unknown 12/11/2024 3:39 AM EDT 12/11/2024 3:59 AM EDT us Venkatesh Stephen MD LAB BLOOD ORDERABLES Final Resul t [facility] [address] [phone] * (ABNORMAL) CBC with automated diff (12/11/2024 3:36 AM EDT) WBC 1.7(LL) 4.0 - 10.0 K/ L 12/11/2024 4:19 AM EDT [facility] RBC 2.50(L) 3.93 - 5.22 M/ L 12/11/2024 4:19 AM EDT [facility] Hemoglobin 7.7(L) 11.2 - 15.7 GM/DL 12/11/2024 4:19 AM EDT [facility] Hematocrit 24.4(L) 34.1 - 44.9 % 12/11/2024 4:19 AM EDT [facility] MCV 98(H) 79 - 95 fL 12/11/2024 4:19 AM EDT [facility] MCH 30.8 25.6 - 32.2 pg 12/11/2024 4:19 AM EDT [facility] MCHC 31.6(L) 32.2 - 35.5 GM/DL 12/11/2024 4:19 AM EDT [facility] RDW 16.9(H) 11.7 - 14.4 % 12/11/2024 4:19 AM EDT [facility] Platelets 50(L) 140 - 375 K/CU MM 12/11/2024 4:19 AM EDT [facility] MPV 11.7 9.4 - 12.3 fL 12/11/2024 4:19 AM EDT [facility] % Neutros 58 34 - 71 % 12/11/2024 4:19 AM EDT [facility] % Lymphs 27 19 - 52 % 12/11/2024 4:19 AM EDT [facility] % Monos 15(H) 5 - 13 % 12/11/2024 4:19 AM EDT [facility] % Eos 0(L) 1 - 6 % 12/11/2024 4:19 AM EDT [facility] % Baso 1 0 - 1 % 12/11/2024 4:19 AM EDT [facility] NRBC Absolute <0.01 0 - 0.012 K/ul 12/11/2024 4:19 AM EDT [facility] # Neutros 1.00(L) 1.56 - 6.13 K/ L 12/11/2024 4:19 AM EDT [facility] # Lymphs 0.46(L) 1.18 - 3.74 K/ L 12/11/2024 4:19 AM EDT [facility] # Monos 0.26 0.24 - 0.86 K/ L 12/11/2024 4:19 AM EDT [facility] # Eos <0.03(L) 0.04 - 0.36 K/ L 12/11/2024 4:19 AM EDT [facility] # Baso <0.03 0.01 - 0.08 K/ L 12/11/2024 4:19 AM EDT [facility] Immature Granulocytes-Re lative 0.00(L) 0.01 - 0.43 % 12/11/2024 4:19 AM EDT [facility] # IG <0.03 0.00 - 0.03 K/uL 12/11/2024 4:19 AM EDT [facility] Blood Venipuncture / Unknown 12/11/2024 3:36 AM EDT 12/11/2024 3:59 AM EDT Narrative [facility] - 12/11/2024 4:19 AM EDT [...] MD LAB BLOOD ORDERABLES Final Resul t [facility] 1 [place], [place] [address] [phone] * (ABNORMAL) Glucose, Nova Meter (12/10/2024 7:38 PM EDT) [facility] POC-GLUCOSE 201(H) 70 - 110 mg/dL 12/10/2024 7:39 PM EDT [facility] Comment: In the event of poor peripheral blood flow, venous or arterial blood should be used due to the potential of erroneous results. Notified Nurse RBV Liner Checker [id number] 12/10/2024 7:39 PM EDT [facility] Blood WHOLE BLOOD / Unknown 12/10/2024 7:38 PM EDT 12/10/2024 7:39 PM EDT Narrative [facility] - 12/10/2024 7:39 PM EDT Liner Checker ID is - [id number] Venkatesh Stephen MD POINT OF CARE TEST ORDERABLES Fi nal Result Performing Organization Address [facility] de [facility] Number [facility] [address] [phone] * (ABNORMAL) Glucose, Nova Meter (12/10/2024 6:32 PM EDT) POC-GLUCOSE 235(H) 70 - 110 mg/dL 12/10/2024 6:34 PM EDT [facility] Comment: In the event of poor peripheral blood flow, venous or arterial blood should be used due to the potential of erroneous results. Notified Nurse RBV Liner Checker [id number] 12/10/2024 6:34 PM EDT [facility] Blood WHOLE BLOOD / Unknown 12/10/2024 6:32 PM EDT 12/10/2024 6:34 PM EDT Narrative [facility] - 12/10/2024 6:34 PM EDT Liner Checker ID is - [id number] us Venkatesh Stephen MD POINT OF CARE TEST ORDERABLES Fi nal Result Performing Organization Address [facility] Co de Phone Number [facility] [address] [phone] * (ABNORMAL) Glucose, Nova Meter (12/10/2024 4:56 PM EDT) POC-GLUCOSE 195(H) 70 - 110 mg/dL 12/10/2024 4:58 PM EDT [facility] Comment: In the event of poor peripheral blood flow, venous or arterial blood should be used due to the potential of erroneous results. Notified Nurse RBV Liner Checker [id number] 12/10/2024 4:58 PM EDT [facility] Blood WHOLE BLOOD / Unknown 12/10/2024 4:56 PM EDT 12/10/2024 4:58 PM EDT Narrative [facility] - 12/10/2024 4:58 PM EDT Liner Checker ID is - [id number] us Venkatesh Stephen MD POINT OF CARE TEST ORDERABLES Fi nal Result Performing Organization Address City/State/[facility] Co de Phone Number [facility] [address] [phone] * US paracentesis (12/10/2024 11:37 AM EDT) [...] Ascites. ATTENDING PHYSICIAN: Dr. Haseeb Gil PHYSICIAN JAVA ENGINEER: Sujit Blackman PA-C FINDINGS: After informed consent [...] Ascites. ATTENDING PHYSICIAN: Dr. Haseeb Gil PHYSICIAN JAVA ENGINEER: Sujit Blackman PA-C FINDINGS: After informed consent [...] ATRIAL RATE (MCT) 90 BPM GE MUSE AL Interval 138 ms GE MUSE QRS-INTERVAL (MSEC) 90 ms GE MUSE QT Interval 396 ms GE MUSE QTC Interval 484 ms GE MUSE P [place] 31 degrees GE MUSE R AXIS (MCT) -10 degrees GE MUSE T Wave [place] 37 degrees GE MUSE [place] Diagnosis Normal sinus rhythm Leftward axis Abnormal [...] - 2.6 mg/dL 12/10/2024 11:02 AM EDT [facility] Blood Venipuncture / Unknown 12/10/2024 9:53 AM EDT 12/10/2024 10:39 AM EDT Deysi Foss MD LAB BLOOD ORDERABLES Final Resul t Performing Organization Address [facility] Phone Number [facility] [address] [phone] * ALT (SGPT) (12/10/2024 9:53 AM EDT) ALT 12 <=34 U/L 12/10/2024 11:02 AM EDT [facility] Comment: ALT2 reagent used [...] ORDERABLES Final Resul t Performing Organization Address [facility] de Phone Number [facility] [address] [phone] * (ABNORMAL) AST (SGOT) (12/10/2024 9:53 AM EDT) AST 39(H) 11 - 34 U/L 12/10/2024 11:02 AM EDT [facility] Comment: AST2 reagent used for testing does not contain P5P supplementation and therefore may miss AST elevations in patients with B6 deficiency. This population may be as high as 10% in the [place], with risk factors including malabsorption, drug interactions, and alcoholic hepatitis. [employer] has become aware of sulfasalazine and sulfapyridine [...] MD LAB BLOOD ORDERABLES Final Resul t [facility] [address] [phone] * XR chest AP portable (12/10/2024 9:10 [...] 7.35 - 7.45 12/10/2024 6:51 AM EDT [facility] pCO2, Arterial 49(H) 35 - 45 mm Hg 12/10/2024 6:51 AM EDT [facility] pO2, Arterial 119(H) 80 - 100 mm Hg 12/10/2024 6:51 AM EDT [facility] HCO3, Arterial 24 20 - 26 mmol/L 12/10/2024 6:51 AM EDT [facility] Base Excess, Arterial -2.4(L) -2.0 - 2.0 mmol/L 12/10/2024 6:51 AM EDT [facility] O2 Sat, Arterial >99.2 95.0 - 100.0 % 12/10/2024 6:51 AM T [facility] Comment:notified at read-anny k verification CTO2 ARTERIAL 11.9 mmol/L 12/10/2024 6:51 AM T [facility] THB ARTERIAL 8.5(L) 12.0 - 18.0 g/dL 12/10/2024 6:51 AM [facility] SJ COLLECTION SITE Left Radial 12/10/2024 6:51 AM [facility] Arterial Puncture Yes 12/10/2024 6:51 AM [facility] Blood Gas O2 Delivery Device Cannula 12/10/2024 6:51 AM [facility] Oxygen Flow Rate 4 12/11/19 25 6:51 AM [facility] Blood Gas PT Temperature C 37.0 12/10/2024 6:51 AM [facility] Sen's Test Acceptable 12/10/2024 6:51 AM [facility] ABG Number of Draw Attempts 1 12/[facility]24 [facility] 12/10/2024 6:51 AM EDT [facility] Blood Gas Temperature Corrected Results No No 12/10/2024 6:51 AM EDT [facility] Blood, Arterial Collection / Unknown 12/10/2024 6:42 AM EDT 12/10/2024 6:51 AM EDT us Blanka Malagon MD LAB BLOOD ORDERABLES Final Re sult Performing Organization Address City/[facility]/ZIP Co de Phone Number [facility] [address] [phone] * (ABNORMAL) Glucose, Nova Meter (12/10/2024 5:52 AM EDT) POC-GLUCOSE 162(H) 70 - 110 mg/dL 12/10/2024 5:53 AM EDT [facility] Comment: In the event of poor peripheral blood flow, venous or arterial blood should be used due to the potential of erroneous results. Notified Nurse RBV Liner Checker [id number] 12/10/2024 5:53 AM EDT [facility] Blood WHOLE BLOOD / Unknown 12/10/2024 5:52 AM EDT 12/10/2024 5:53 AM EDT Narrative [facility] - 12/10/2024 5:53 AM EDT Liner Checker ID is - [id number] us Mary Carmen Mcfadden MD POINT OF CARE TEST ORDERABLES F inal Result Performing Organization Address [facility] Co de Phone Number [facility] [address] [phone] * (ABNORMAL) Glucose, Nova Meter (12/09/2024 7:30 PM EDT) POC-GLUCOSE 158(H) 70 - 110 mg/dL 12/09/2024 7:31 PM EDT [facility] Comment: In the event of poor peripheral blood flow, venous or arterial blood should be used due to the potential of erroneous results. Notified Nurse RBV Liner Checker [id number] 12/09/2024 7:31 PM EDT [facility] Blood WHOLE BLOOD / Unknown 12/09/2024 7:30 PM EDT 12/09/2024 7:31 PM EDT Narrative [facility] - 12/09/2024 7:31 PM EDT Liner Checker ID is - [id number] Mary Carmen Mcfadden MD POINT OF CARE TEST ORDERABLES F inal Result Performing Organization Address City/[facility]/ZIP Co de Phone Number [facility] [address] [phone] * (ABNORMAL) Glucose, Nova Meter (12/09/2024 4:23 PM EDT) [facility] POC-GLUCOSE 173(H) 70 - 110 mg/dL 12/09/2024 4:24 PM EDT [facility] Comment: In the event of poor peripheral blood flow, venous or arterial blood should be used due to the potential of erroneous results. Notified Nurse RBV Liner Checker [id number] 12/09/2024 4:24 PM EDT [facility] Blood WHOLE BLOOD / Unknown 12/09/2024 4:23 PM EDT 12/09/2024 4:24 PM EDT Narrative [facility] - 12/09/2024 4:24 PM EDT Liner Checker ID is - [id number] Mary Carmen Mcfadden MD POINT OF CARE TEST ORDERABLES F inal Result Performing Organization Address City/[facility]/ZIP Co de Phone Number [facility] [address] [phone] * ECG 12 lead (12/09/2024 12:33 PM EDT) Pathologist [facility] VENTRICULAR RATE EKG/MIN 91 BPM GE MUSE ATRIAL RATE (MCT) 91 BPM GE MUSE AL Interval 140 ms GE MUSE QRS-INTERVAL (MSEC) 88 ms GE MUSE QT Interval 386 ms GE MUSE QTC Interval 474 ms GE MUSE P [place] 44 degrees GE MUSE R AXIS (MCT) -3 degrees GE MUSE T Wave [place] 16 degrees GE MUSE [place] Diagnosis Normal sinus rhythm Minimal voltage criteria for LVH, may be normal variant Septal infarct (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 ([id number]) on 12/09/2024 6:05:19 PM GE MUSE 12/09/2024 12:3 3 PM EDT 12/09/2024 6:05 PM EDT us Deysi Foss MD ECG ORDERABLES Final Result Performing Organization Address [facility] Co de Phone Number GE MUSE * (ABNORMAL) Glucose, Nova Meter (12/09/2024 11:17 AM EDT) POC-GLUCOSE 173(H) 70 - 110 mg/dL 12/09/2024 11:18 AM EDT [facility] Comment: In the event of poor peripheral blood flow, venous or arterial blood should be used due to the potential of erroneous results. Notified Nurse RBV Liner Checker [id number] 12/09/2024 11:18 AM EDT [facility] Blood WHOLE BLOOD / Unknown 12/09/2024 11:17 AM EDT 12/09/2024 11:18 AM EDT Narrative [facility] - 12/09/2024 11:18 AM EDT Liner Checker ID is - [id number] us Mary Carmen Mcfadden MD POINT OF CARE TEST ORDERABLES F inal Result Performing Organization Address [facility]/ZIP Co de Phone Number [facility] [address] [phone] * XR chest AP portable (12/09/2024 7:09 [...] 7.35 - 7.45 12/09/2024 6:52 AM EDT [facility] pCO2, Arterial 51(H) 35 - 45 mm Hg 12/09/2024 6:52 AM EDT [facility] pO2, Arterial 157(H) 80 - 100 mm Hg 12/09/2024 6:52 AM EDT [facility] HCO3, Arterial 24 20 - 26 mmol/L 12/09/2024 6:52 AM EDT [facility] Base Excess, Arterial -2.6(L) -2.0 - 2.0 mmol/L 12/09/2024 6:52 AM EDT [facility] O2 Sat, Arterial >99.2 95.0 - 100.0 % 12/09/2024 6:52 AM EDT [facility] Comment:[id number] notified RUVIM AUGUSTUS, RN at 12/09/2024 06:51 read-back verification CTO2 ARTERIAL 12.3 mmol/L 12/09/2024 6:52 AM EDT [facility] THB ARTERIAL 8.7(L) 12.0 - 18.0 g/dL 12/09/2024 6:52 AM EDT [facility] COLLECTION SITE Left Radial 12/09/2024 6:52 AM EDT [facility] Arterial Puncture Yes 12/09/2024 6:52 AM EDT [facility] Blood Gas O2 Delivery Device Cannula 12/09/2024 6:52 AM EDT [facility] Oxygen Flow Rate 4 12/10/19 6:52 AM EDT [facility] Blood Gas PT Temperature C 37.0 12/09/2024 6:52 AM EDT [facility] Sen's Test Acceptable 12/09/2024 6:52 AM EDT [facility] Critical Values Notification Critical Blood gas called to DAYANARA MILES . [place] [id number] and confirmed on 12/09/2024 06:51 12/09/2024 6:52 AM EDT [facility] ABG Number of Draw Attempts 1 12/09/2024 6:52 AM EDT [facility] FIO2 12/09/2024 6:52 AM EDT [facility] Blood Gas Temperature Corrected Results No No 12/09/2024 6:52 AM EDT [facility] Blood, Arterial ENTIRE LEFT UPPER ARM / Unknown 12/09/2024 6:37 AM EDT 12/09/2024 6:52 AM EDT us Blanka Malagon MD LAB BLOOD ORDERABLES Final Re sult [facility] [address] [place] [address] * (ABNORMAL) Glucose, Nova Meter (12/09/2024 5:45 AM EDT) POC-GLUCOSE 148(H) 70 - 110 mg/dL 12/09/2024 5:46 AM EDT [facility] Comment: In the event of poor peripheral blood flow, venous or arterial blood should be used due to the potential of erroneous results. Notified Nurse RBV Liner Checker [id number] 12/09/2024 5:46 AM EDT [facility] Blood WHOLE BLOOD / Unknown 12/09/2024 5:45 AM EDT 12/09/2024 5:46 AM EDT Narrative [facility] - 12/09/2024 5:46 AM EDT Liner Checker ID is - [id number] us Mary Carmen Mcfadden MD POINT OF CARE TEST ORDERABLES F inal Result [facility] [address] [phone] * (ABNORMAL) CBC - Hemogram (SJ-BKR) (12/09/2024 3:38 AM EDT) WBC 2.4(L) 4.0 - 10.0 K/ L 12/09/2024 3:59 AM EDT [facility] RBC 2.83(L) 3.93 - 5.22 M/ L 12/09/2024 3:59 AM EDT [facility] Hemoglobin 8.5(L) 11.2 - 15.7 GM/DL 12/09/2024 3:59 AM EDT [facility] Hematocrit 28.0(L) 34.1 - 44.9 % 12/09/2024 3:59 AM EDT [facility] MCV 99(H) 79 - 95 fL 12/09/2024 3:59 AM EDT [facility] MCH 30.0 25.6 - 32.2 pg 12/09/2024 3:59 AM EDT [facility] MCHC 30.4(L) 32.2 - 35.5 GM/DL 12/09/2024 3:59 AM EDT [facility] RDW 17.2(H) 11.7 - 14.4 % 12/09/2024 3:59 AM EDT [facility] Platelets 55(L) 140 - 375 K/CU MM 12/09/2024 3:59 AM EDT [facility] MPV 11.5 9.4 - 12.3 fL 12/09/2024 3:59 AM EDT [facility] Blood Venipuncture / Unknown 12/09/2024 3:38 AM EDT 12/09/2024 3:45 AM EDT us Mary Carmen Mcfadden MD LAB BLOOD ORDERABLES Final Resu lt [facility] [address] [phone] * (ABNORMAL) Basic Metabolic Panel (12/09/2024 3:38 AM EDT) Sodium 148(H) 136 - 145 meq/L 12/09/2024 4:07 AM EDT [facility] Potassium 3.6 3.4 - 5.1 meq/L 12/09/2024 4:07 AM EDT [facility] CO2 23 22 - 29 meq/L 12/09/2024 4:07 AM EDT [facility] Chloride 116(H) 98 - 112 meq/L 12/09/2024 4:07 AM EDT [facility] Glucose 146(H) 82 - 115 mg/dL 12/09/2024 4:07 AM EDT [facility] BUN 77.3(H) 9.8 - 20.1 mg/dL 12/09/2024 4:07 AM EDT [facility] Creatinine 2.82(H) 0.57 - 1.11 mg/dL 12/09/2024 4:07 AM EDT [facility] BUN/Creatinine 27(H) 8 - 20 12/09/2024 4:07 AM EDT [facility] Calcium 8.7 8.4 - 10.2 mg/dL 12/09/2024 4:07 AM EDT [facility] Anion Gap 13(H) 4 - 12 12/09/2024 4:07 AM EDT [facility] eGFR (mL/min/1.73m2) 18(L) >=60 mL/min/1.7 3m2 12/09/2024 4:07 AM EDT [facility] Osmolality Calc 320.0 mOsm/kg 4:07 AM EDT [facility] Blood Venipuncture / Unknown 12/09/2024 3:38 AM EDT 12/09/2024 3:45 AM EDT Mary Carmen Mcfadden MD LAB BLOOD ORDERABLES Final Resu lt [facility] [address] [phone] * (ABNORMAL) Glucose, Nova Meter (12/08/2024 8:08 PM EDT) POC-GLUCOSE 172(H) 70 - 110 mg/dL 12/08/2024 8:08 PM EDT [facility] Comment: In the event of poor peripheral blood flow, venous or arterial blood should be used due to the potential of erroneous results. Notified Nurse RBV Liner Checker [id number] 12/08/2024 8:08 PM EDT [facility] Blood WHOLE BLOOD / Unknown 12/08/2024 8:08 PM EDT 12/08/2024 8:08 PM EDT Narrative [facility] - 12/08/2024 8:08 PM EDT Liner Checker ID is - [id number] Mary Carmen Mcfadden MD POINT OF CARE TEST ORDERABLES F inal Result Performing Organization Address [facility]/State/ZIP Co de Phone Number [facility] [address] [place] [address], [facility] [phone] * (ABNORMAL) Glucose, Nova Meter (12/08/2024 3:34 PM EDT) POC-GLUCOSE 159(H) 70 - 110 mg/dL 12/08/2024 3:36 PM EDT [facility] Comment: In the event of poor peripheral blood flow, venous or arterial blood should be used due to the potential of erroneous results. Notified Nurse [facility]BV Liner Checker [id number] 12/08/2024 3:36 PM EDT [facility] LABORATORY Blood WHOLE BLOOD / Unknown 12/08/2024 3:34 PM EDT 12/08/2024 3:36 PM EDT [facility] LABORATORY - 12/08/2024 3:36 PM EDT Liner Checker ID is - [id number] Mary Carmen Mcfadden MD POINT OF CARE TEST ORDERABLES F inal Result Performing Organization Address City/[facility]/ZIP Co de Phone Number [facility] [address] [phone] * (ABNORMAL) Glucose, Nova Meter (12/08/2024 10:57 AM EDT) [facility] POC-GLUCOSE 191(H) 70 - 110 mg/dL 12/08/2024 10:59 AM EDT [facility] Comment: In the event of poor peripheral blood flow, venous or arterial blood should be used due to the potential of erroneous results. Protocols Followed Notified Nurse RBV Liner Checker [id number] 12/08/2024 10:59 AM EDT [facility] Blood WHOLE BLOOD / Unknown 12/08/2024 10:57 AM EDT 12/08/2024 10:59 AM EDT [facility] LABORATORY - 12/08/2024 10:59 AM EDT Liner Checker ID is - [id number] Mary Carmen Mcfadden MD POINT OF CARE TEST ORDERABLES F inal Result Performing Organization Address City/[facility]/ZIP Co de Phone Number [facility] [address] [phone] * ECG 12 lead (12/08/2024 10:55 AM EDT) [facility] VENTRICULAR RATE EKG/MIN 92 BPM GE MUSE ATRIAL RATE (MCT) 92 BPM GE MUSE AL Interval 138 ms GE MUSE QRS-INTERVAL (MSEC) 94 ms GE MUSE QT Interval 354 ms GE MUSE QTC Interval 437 ms GE MUSE P [place] 30 degrees GE MUSE R AXIS (MCT) -11 degrees GE MUSE T Wave [place] 37 degrees GE MUSE [place] Diagnosis Normal sinus rhythm Minimal voltage criteria [...] 7.35 - 7.45 12/08/2024 7:31 AM EDT [facility] pCO2, Arterial 54(H) 35 - 45 mm Hg 12/08/2024 7:31 AM EDT [facility] pO2, Arterial 80 80 - 100 mm Hg 12/08/2024 7:31 AM EDT [facility] HCO3, Arterial 24 20 - 26 mmol/L 12/08/2024 7:31 AM EDT [facility] Base Excess, Arterial -2.9(L) -2.0 - 2.0 mmol/L 12/08/2024 7:31 AM EDT [facility] O2 Sat, Arterial 96.7 95.0 - 100.0 % 12/08/2024 7:31 AM EDT [facility] CTO2 ARTERIAL 11.8 mmol/L 12/08/2024 7:31 AM EDT [facility] THB ARTERIAL 8.8(L) 12.0 - 18.0 g/dL 12/08/2024 7:31 AM EDT [facility] COLLECTION SITE Right Brachial 12/08/2024 7:31 AM EDT [facility] Arterial Puncture Yes 12/08/2024 7:31 AM EDT [facility] Blood Gas O2 Delivery Device Cannula 12/08/2024 7:31 AM EDT [facility] Oxygen Flow Rate 4 12/09/19 7:31 AM EDT [facility] Blood Gas PT Temperature C 37.0 12/08/2024 7:31 AM EDT [facility] Sen's Test Not Applicable 12/09/19 7:31 AM EDT [facility] Critical Values Notification Critical Blood gas called to KNOWN CONDITION . Results acknowledged/r ead back to [id number] and confirmed on 12/08/2024 07:30 12/08/2024 7:31 AM EDT [facility] ABG Number of Draw Attempts 1 12/08/2024 7:31 AM EDT [facility] FIO2 12/08/2024 7:31 AM EDT [facility] Blood Gas Temperature Corrected Results No No 12/08/2024 7:31 AM EDT [facility] Blood, Arterial 12/08/2024 7 :13 AM EDT 12/08/2024 7:31 AM EDT Mary Carmen Mcfadden MD LAB BLOOD ORDERABLES Final Resu lt [facility] [address] [phone] * (ABNORMAL) Glucose, Nova Meter (12/08/2024 6:08 AM EDT) [facility] POC-GLUCOSE 136(H) 70 - 110 mg/dL 12/08/2024 6:09 AM EDT [facility] Comment: In the event of poor peripheral blood flow, venous or arterial blood should be used due to the potential of erroneous results. Protocols Followed Notified Nurse RBV Liner Checker [id number] 12/08/2024 6:09 AM EDT [facility] Blood WHOLE BLOOD / Unknown 12/08/2024 6:08 AM EDT 12/08/2024 6:09 AM EDT Narrative [facility] - 12/08/2024 6:09 AM EDT Liner Checker ID is - [id number] us Mary Carmen Mcfadden MD POINT OF CARE TEST ORDERABLES F inal Result [facility] [address] [phone] * (ABNORMAL) CBC - Hemogram (SJ-BKR) (12/08/2024 4:10 AM EDT) WBC 3.1(L) 4.0 - 10.0 K/ L 12/08/2024 4:53 AM EDT [facility] RBC 2.84(L) 3.93 - 5.22 M/ L 12/08/2024 4:53 AM EDT [facility] Hemoglobin 8.7(L) 11.2 - 15.7 GM/DL 12/08/2024 4:53 AM EDT [facility] Hematocrit 28.2(L) 34.1 - 44.9 % 12/08/2024 4:53 AM EDT [facility] MCV 99(H) 79 - 95 fL 12/08/2024 4:53 AM EDT [facility] MCH 30.6 25.6 - 32.2 pg 12/08/2024 4:53 AM EDT [facility] MCHC 30.9(L) 32.2 - 35.5 GM/DL 12/08/2024 4:53 AM EDT [facility] RDW 17.4(H) 11.7 - 14.4 % 12/08/2024 4:53 AM EDT [facility] Platelets 54(L) 140 - 375 K/CU MM 12/08/2024 4:53 AM EDT [facility] MPV 11.2 9.4 - 12.3 fL 12/08/2024 4:53 AM EDT [facility] Blood Venipuncture / Unknown 12/08/2024 4:10 AM EDT 12/08/2024 4:37 AM EDT us Mary Carmen Mcfadden MD LAB BLOOD ORDERABLES Final Resu lt [facility] [address] [phone] * (ABNORMAL) Basic Metabolic Panel (12/08/2024 4:10 AM EDT) Sodium 149(H) 136 - 145 meq/L 12/08/2024 5:22 AM EDT [facility] Potassium 3.6 3.4 - 5.1 meq/L 12/08/2024 5:22 AM EDT [facility] CO2 23 22 - 29 meq/L 12/08/2024 5:22 AM EDT [facility] Chloride 116(H) 98 - 112 meq/L 12/08/2024 5:22 AM EDT [facility] Glucose 160(H) 82 - 115 mg/dL 12/08/2024 5:22 AM EDT [facility] BUN 76.4(H) 9.8 - 20.1 mg/dL 12/08/2024 5:22 AM EDT [facility] Creatinine 2.92(H) 0.57 - 1.11 mg/dL 12/08/2024 5:22 AM EDT [facility] BUN/Creatinine 26(H) 8 - 20 12/08/2024 5:22 AM EDT [facility] Calcium 8.7 8.4 - 10.2 mg/dL 12/08/2024 5:22 AM EDT [facility] Anion Gap 14(H) 4 - 12 12/08/2024 5:22 AM EDT [facility] eGFR (mL/min/1.73m2) 18(L) >=60 mL/min/1.7 3m2 12/08/2024 5:22 AM EDT [facility] Osmolality Calc 322.3 mOsm/kg 5:22 AM EDT [facility] Blood Venipuncture / Unknown 12/08/2024 4:10 AM EDT 12/08/2024 4:40 AM EDT us Mary Carmen Mcfadden MD LAB BLOOD ORDERABLES Final Resu lt [facility] [address] [phone] * (ABNORMAL) Glucose, Nova Meter (12/07/2024 7:54 PM EDT) POC-GLUCOSE 164(H) 70 - 110 mg/dL 12/07/2024 7:55 PM EDT [facility] Comment: In the event of poor peripheral blood flow, venous or arterial blood should be used due to the potential of erroneous results. Protocols Followed Notified Nurse RBV Liner Checker [id number] 12/07/2024 7:55 PM EDT [facility] Blood WHOLE BLOOD / Unknown 12/07/2024 7:54 PM EDT 12/07/2024 7:55 PM EDT Narrative [facility] - 12/07/2024 7:55 PM EDT Liner Checker ID is - [id number] us Mary Carmen Mcfadden MD POINT OF CARE TEST ORDERABLES F inal Result [facility] [address] [place] [address] * (ABNORMAL) ABG (12/07/2024 4:21 PM EDT) Pathologist [facility] pH, Arterial 7.29(L) 7.35 - 7.45 12/07/2024 4:43 PM EDT [facility] pCO2, Arterial 50(H) 35 - 45 mm Hg 12/07/2024 4:43 PM EDT [facility] pO2, Arterial 179(H) 80 - 100 mm Hg 12/07/2024 4:43 PM EDT [facility] HCO3, Arterial 24 20 - 26 mmol/L 12/07/2024 4:43 PM EDT [facility] Base Excess, Arterial -2.3(L) -2.0 - 2.0 mmol/L 12/07/2024 4:43 PM EDT [facility] O2 Sat, Arterial >100.0(H) 95.0 - 100.0 % 12/07/2024 4:43 PM EDT [facility] Comment:[id number] notified MORRIS LORENZ RN at 12/07/2024 16:42 read-back verification CTO2 ARTERIAL 12.0 mmol/L 12/07/2024 4:43 PM EDT [facility] THB ARTERIAL 8.4(L) 12.0 - 18.0 g/dL 12/07/2024 4:43 PM EDT [facility] PaO2/FIO2 calculated 359.0 12/07/2024 4:43 PM EDT [facility] COLLECTION SITE Right Brachial 12/07/2024 4:43 PM EDT [facility] Arterial Puncture Yes 12/07/2024 4:43 PM EDT [facility] Blood Gas O2 Delivery Device NIV 12/07/2024 4:43 PM EDT [facility] Blood Gas PT Temperature C 37.0 12/07/2024 4:43 PM EDT [facility] Sen's Test Not Applicable 12/08/19 4:43 PM EDT [facility] Critical Values Notification Critical Blood gas called to SEB LORENZ RN . Results acknowledged/r ead back to [id number] and confirmed on 12/07/2024 16:42 12/07/2024 4:43 PM EDT [facility] ABG Number of Draw Attempts 2 12/07/2024 4:43 PM EDT [facility] Set Rate 16.0 12/07/2024 4:43 PM EDT [facility] IPAP 10 12/07/2024 4:43 PM EDT [facility] EPAP 6 12/07/2024 4:43 PM EDT [facility] FIO2 50.0 12/07/2024 4:43 PM EDT [facility] Blood Gas Temperature Corrected Results No No 12/07/2024 4:43 PM EDT [facility] Blood, Arterial 12/07/2024 4 :21 PM EDT 12/07/2024 4:43 PM EDT us Blanka Malagon MD LAB BLOOD ORDERABLES Final Re sult [facility] [address] [place] [address], [facility] [phone] * (ABNORMAL) Glucose, Nova Meter (12/07/2024 3:39 PM EDT) POC-GLUCOSE 159(H) 70 - 110 mg/dL 12/07/2024 3:41 PM EDT [facility] Comment: In the event of poor peripheral blood flow, venous or arterial blood should be used due to the potential of erroneous results. Notified Nurse RBV Liner Checker [id number] 12/07/2024 3:41 PM EDT [facility] Blood WHOLE BLOOD / Unknown 12/07/2024 3:39 PM EDT 12/07/2024 3:41 PM EDT Narrative [facility] - 12/07/2024 3:41 PM EDT Liner Checker ID is - [id number] us Mary Carmen Mcfadden MD POINT OF CARE TEST ORDERABLES F inal Result [facility] [address] [place] [address] * XR chest AP portable (12/07/2024 2:25 [...] 7.35 - 7.45 12/07/2024 3:27 PM EDT [facility] pCO2, Arterial 50(H) 35 - 45 mm Hg 12/07/2024 3:27 PM EDT [facility] pO2, Arterial 58(L) 80 - 100 mm Hg 12/07/2024 3:27 PM EDT [facility] HCO3, Arterial 24 20 - 26 mmol/L 12/07/2024 3:27 PM EDT [facility] Base Excess, Arterial -3.3(L) -2.0 - 2.0 mmol/L 12/07/2024 3:27 PM EDT [facility] O2 Sat, Arterial 91.3(L) 95.0 - 100.0 % 12/07/2024 3:27 PM EDT [facility] CTO2 ARTERIAL 11.2 mmol/L 12/07/2024 3:27 PM EDT [facility] THB ARTERIAL 8.9(L) 12.0 - 18.0 g/dL 12/07/2024 3:27 PM EDT [facility] COLLECTION SITE Right Radial 12/07/2024 3:27 PM EDT [facility] Arterial Puncture Yes 12/07/2024 3:27 PM EDT [facility] Blood Gas O2 Delivery Device Cannula 12/07/2024 3:27 PM EDT [facility] Oxygen Flow Rate 2 12/07/2024 3:27 PM EDT [facility] Blood Gas PT Temperature C 37.0 12/07/2024 3:27 PM EDT [facility] Sen's Test Unacceptable 12/07/2024 3:27 PM EDT [facility] Vent Mode Other 12/07/2024 3:27 PM EDT [facility] Critical Values Notification Critical Blood gas called to DR MALAGON . [place] [id number] and confirmed on 12/07/2024 14:14 12/07/2024 3:27 PM EDT [facility] ABG Number of Draw Attempts 1 12/07/2024 3:27 PM EDT [facility] Performed by: CD 12/07/2024 3:27 PM EDT [facility] FIO2 12/07/2024 3:27 PM EDT [facility] Blood Gas Temperature Corrected Results No No 12/07/2024 3:27 PM EDT [facility] Blood, Arterial 12/07/2024 2 :02 PM EDT 12/07/2024 2:14 PM EDT Mary Carmen Mcfadden MD LAB BLOOD ORDERABLES Final Resu lt Performing Organization Address [facility] Co la Phone Number [facility] [address] [phone] * (ABNORMAL) Glucose, Nova Meter (12/07/2024 10:54 AM EDT) POC-GLUCOSE 146(H) 70 - 110 mg/dL 12/07/2024 10:56 AM EDT [facility] Comment: In the event of poor peripheral blood flow, venous or arterial blood should be used due to the potential of erroneous results. Notified Nurse RBV Liner Checker [id number] 12/07/2024 10:56 AM EDT [facility] Blood WHOLE BLOOD / Unknown 12/07/2024 10:54 AM EDT 12/07/2024 10:56 AM EDT Narrative [facility] - 12/07/2024 10:56 AM EDT Liner Checker ID is - [id number] us Mary Carmen Mcfadden MD POINT OF CARE TEST ORDERABLES F inal Result Performing Organization Address [facility] Co de Phone Number [facility] [address] [phone] * (ABNORMAL) Blood gas, arterial (12/07/2024 10:36 AM EDT) pH, Arterial 7.26(L) 7.35 - 7.45 12/07/2024 1:50 PM EDT [facility] pCO2, Arterial 50(H) 35 - 45 mm Hg 12/07/2024 1:50 PM EDT [facility] pO2, Arterial 43(LL) 80 - 100 mm Hg 12/07/2024 1:50 PM EDT [facility] HCO3, Arterial 22 20 - 26 mmol/L 12/07/2024 1:50 PM EDT [facility] Base Excess, Arterial -4.7(L) -2.0 - 2.0 mmol/L 12/07/2024 1:50 PM EDT [facility] O2 Sat, Arterial 80.4(L) 95.0 - 100.0 % 12/07/2024 1:50 PM T [facility] Comment:[id number] notified TRAY LORENZ RN at 12/07/2024 10:51 read-back verification CTO2 ARTERIAL 9.4 mmol/L 12/07/2024 1:50 PM T [facility] THB ARTERIAL 8.5(L) 12.0 - 18.0 g/dL 12/07/2024 1:50 PM T [facility] PaO2/FIO2 calculated 203.0 12/07/2024 1:50 PM [facility] COLLECTION SITE Right Radial 12/07/2024 1:50 PM T [facility] Arterial Puncture Yes 12/07/2024 1:50 PM T [facility] Blood Gas PT Temperature C 37.0 12/07/2024 1:50 PM T [facility] Sen's Test Acceptable 12/07/2024 1:50 PM T [facility] Critical Values Notification Critical Blood gas called to TRAY LORENZ RN . Results [place] [id number] and confirmed on 12/07/2024 10:51 12/07/2024 1:50 PM T [facility] ABG Number of Draw Attempts 1 12/07/2024 1:50 PM EDT [facility] FIO2 21.0 12/07/2024 1:50 PM EDT [facility] Blood Gas Temperature Corrected Results No No 12/07/2024 1:50 PM EDT [facility] Blood, Arterial 12/07/2024 1 0:36 AM EDT 12/07/2024 1:50 PM EDT Mary Carmen Mcfadden MD LAB BLOOD ORDERABLES Final Resu lt Performing Organization Address [facility] Co de Phone Number [facility] [address] [phone] * ECG 12 lead (12/07/2024 10:29 AM EDT) VENTRICULAR RATE EKG/MIN 91 BPM GE MUSE ATRIAL RATE (MCT) 91 BPM GE MUSE AL Interval 142 ms GE MUSE QRS-INTERVAL (MSEC) 88 ms GE MUSE QT Interval 376 ms GE MUSE QTC Interval 462 ms GE MUSE P [place] 39 degrees GE MUSE R AXIS (MCT) -3 degrees GE MUSE T Wave [place] 4 degrees GE MUSE [place] Diagnosis Normal sinus rhythm Nonspecific T wave abnormality Abnormal ECG When compared with ECG of 06-DEC-2024 13:16, No significant change was found Confirmed by DEYSI FOSS M.D. ([id number]) on 12/07/2024 7:36:17 PM GE MUSE 12/07/2024 10:2 9 AM EDT 12/07/2024 7:36 PM EDT Mary Carmen Mcfadden MD ECG ORDERABLES Final Result Performing Organization Address [facility] de Phone Number GE M[facility] * (ABNORMAL) Glucose, Nova Meter (12/07/2024 5:51 AM EDT) POC-GLUCOSE 159(H) 70 - 110 mg/dL 12/07/2024 5:52 AM EDT [facility] Comment: In the event of poor peripheral blood flow, venous or arterial blood should be used due to the potential of erroneous results. Notified Nurse RBV Liner Checker [id number] 12/07/2024 5:52 AM EDT [facility] Blood WHOLE BLOOD / Unknown 12/07/2024 5:51 AM EDT 12/07/2024 5:52 AM EDT Narrative [facility] - 12/07/2024 5:52 AM EDT Liner Checker ID is - [id number] Mary Carmen Mcfadden MD POINT OF CARE TEST ORDERABLES F inal Result [facility] [address] [phone] * Erythropoietin(SENDOUT) (12/07/2024 3:59 AM EDT) Erythropoietin 19 4 - 27 mU/mL 12/08/2024 2:30 PM EDT [employer] Comment: INTERPRETIVE INFORMATION: Erythropoietin Normal serum concentrations [...] may benefit from therapy with recombinant EPO ([facility] [id number]). Performed By: [facility] [address] [place] [address] Sr Risk Management Consultant: Lalo Mortensen MD, PhD CLIA Number: [id number] Blood Venipuncture / Unknown 12/07/2024 3:59 AM EDT 12/07/2024 4:11 AM EDT us Ariel Mills MD LAB BLOOD ORDERABLES Final Res ult Performing Organization Address [facility]/ZIP Co de Phone Number [employer] [address] [phone] * Ammonia (12/07/2024 3:59 AM EDT) Ammonia 44 18 - 72 mol/L 12/07/2024 4:37 AM EDT [facility] Blood Venipuncture / Unknown 12/07/2024 3:59 AM EDT 12/07/2024 4:22 AM EDT us Timothy Bai MD LAB BLOOD ORDERABLES Final Result [facility] [address] [place] [address] * (ABNORMAL) Comprehensive Metabolic Panel (12/07/2024 3:59 AM EDT) Sodium 146(H) 136 - 145 meq/L 12/07/2024 4:52 AM EDT [facility] Potassium 3.8 3.4 - 5.1 meq/L 12/07/2024 4:52 AM EDT [facility] Chloride 118(H) 98 - 112 meq/L 12/07/2024 4:52 AM EDT [facility] CO2 20(L) 22 - 29 meq/L 12/07/2024 4:52 AM EDT [facility] Calcium 8.4 8.4 - 10.2 mg/dL 12/07/2024 4:52 AM EDT [facility] Glucose 166(H) 82 - 115 mg/dL 12/07/2024 4:52 AM EDT [facility] BUN 72.9(H) 9.8 - 20.1 mg/dL 12/07/2024 4:52 AM [facility] Creatinine 3.13(H) 0.57 - 1.11 mg/dL 12/07/2024 4:52 AM [facility] BUN/Creatinine 23(H) 8 - 20 12/07/2024 4:52 AM [facility] eGFR (mL/min/1.73m2) 16(L) >=60 mL/min/1. 73m2 12/07/2024 4:52 AM [facility] Albumin 4.1 3.5 - 5.0 g/dL 12/07/2024 4:52 AM [facility] Alkaline Phosphatase 48 40 - 150 U/L 12/07/2024 4:52 AM [facility] ALT 9 <=34 U/L 12/07/2024 4:52 AM [facility] Comment: ALT2 reagent used for testing does not contain P5P supplementation and therefore may miss ALT elevations in patients with B6 deficiency. This population may be as high as 10% in the [place], with risk factors including malabsorption, drug interactions, and alcoholic hepatitis. AST 24 11 - 34 U/L 12/07/2024 4:52 AM [facility] Comment: AST2 reagent used for testing does not contain P5P supplementation and therefore may miss AST elevations in patients with B6 deficiency. This population may be as high as 10% in the [place], with risk factors including malabsorption, drug interactions, and alcoholic hepatitis. Total Bilirubin 0.9 0.2 - 1.2 mg/dL 12/07/2024 4:52 AM [facility] Protein, Total 6.4 6.4 - 8.3 g/dL 12/07/2024 4:52 AM [facility] Globulin 2.3(L) 2.5 - 4.1 g/dL 12/07/2024 4:52 AM [facility] Anion Gap 12 4 - 12 12/07/2024 4:52 AM [facility] A/G Ratio 1.8 0.7 - 1.9 12/07/2024 4:52 AM [facility] Osmolality Calc 315.8 mOsm/kg 4:52 AM EDT [facility] Blood Venipuncture / Unknown 12/07/2024 3:59 AM EDT 12/07/2024 4:09 AM EDT Timothy Bai MD LAB BLOOD ORDERABLES Final Result [facility] [address] [phone] * Magnesium (12/07/2024 3:59 AM EDT) Magnesium 2.4 1.6 - 2.6 mg/dL 12/07/2024 4:52 AM EDT [facility] Blood Venipuncture / Unknown 12/07/2024 3:59 AM EDT 12/07/2024 4:09 AM EDT Timothy Bai MD LAB BLOOD ORDERABLES Final Result Performing Organization Address City/[facility]/ZIP Co de Phone Number [facility] [address] [phone] * (ABNORMAL) CBC - Hemogram (SJ-BKR) (12/07/2024 3:59 AM EDT) WBC 3.5(L) 4.0 - 10.0 K/ L 12/07/2024 4:31 AM EDT [facility] RBC 2.58(L) 3.93 - 5.22 M/ L 12/07/2024 4:31 AM EDT [facility] Hemoglobin 7.9(L) 11.2 - 15.7 GM/DL 12/07/2024 4:31 AM EDT [facility] Hematocrit 25.6(L) 34.1 - 44.9 % 12/07/2024 4:31 AM EDT [facility] MCV 99(H) 79 - 95 fL 12/07/2024 4:31 AM EDT [facility] MCH 30.6 25.6 - 32.2 pg 12/07/2024 4:31 AM EDT [facility] MCHC 30.9(L) 32.2 - 35.5 GM/DL 12/07/2024 4:31 AM EDT [facility] RDW 17.4(H) 11.7 - 14.4 % 12/07/2024 4:31 AM EDT [facility] Platelets 54(L) 140 - 375 K/CU MM 12/07/2024 4:31 AM EDT [facility] MPV 12.2 9.4 - 12.3 fL 12/07/2024 4:31 AM EDT [facility] Blood Venipuncture / Unknown 12/07/2024 3:59 AM EDT 12/07/2024 4:09 AM EDT us Timothy Bai MD LAB BLOOD ORDERABLES Final Result Performing Organization Address [facility] Co de Phone Number [facility] [address] [phone] * (ABNORMAL) Glucose, Nova Meter (12/06/2024 7:26 PM EDT) [facility] POC-GLUCOSE 170(H) 70 - 110 mg/dL 12/06/2024 7:27 PM EDT [facility] Comment: In the event of poor peripheral blood flow, venous or arterial blood should be used due to the potential of erroneous results. Notified Nurse RBV Liner Checker [id number] 12/06/2024 7:27 PM EDT [facility] Blood WHOLE BLOOD / Unknown 12/06/2024 7:26 PM EDT 12/06/2024 7:27 PM EDT Narrative [facility] - 12/06/2024 7:27 PM EDT Liner Checker ID is - [id number] us Mary Carmen Mcfadden MD POINT OF CARE TEST ORDERABLES F inal Result Performing Organization Address City/[facility]/ZIP Co de Phone Number [facility] [address] [phone] * (ABNORMAL) Glucose, Nova Meter (12/06/2024 4:06 PM EDT) Pathologist [facility] POC-GLUCOSE 134(H) 70 - 110 mg/dL 12/06/2024 4:07 PM EDT [facility] Comment: In the event of poor peripheral blood flow, venous or arterial blood should be used due to the potential of erroneous results. Notified Nurse RBV Liner Checker [id number] 12/06/2024 4:07 PM EDT [facility] Blood WHOLE BLOOD / Unknown 12/06/2024 4:06 PM EDT 12/06/2024 4:07 PM EDT Narrative [facility] - 12/06/2024 4:07 PM EDT Liner Checker ID is - [id number] us Mary Carmen Mcfadden MD POINT OF CARE TEST ORDERABLES F inal Result [facility] [address] [phone] * ECG 12 lead (12/06/2024 1:16 PM EDT) Pathologist [facility] VENTRICULAR RATE EKG/MIN 90 BPM GE MUSE ATRIAL RATE (MCT) 90 BPM GE MUSE AL Interval 142 ms GE MUSE QRS-INTERVAL (MSEC) 92 ms GE MUSE QT Interval 378 ms GE MUSE QTC Interval 462 ms GE MUSE P [place] 28 degrees GE MUSE R AXIS (MCT) -4 degrees GE MUSE T Wave [place] 21 degrees GE MUSE [place] Diagnosis Normal sinus rhythm Septal infarct , age undetermined Confirmed by DEYSI FOSS M.D. ([id number]) on 12/07/2024 7:40:21 PM GE MUSE 12/06/2024 1:16 PM EDT 12/07/2024 7:40 PM EDT us Deysi Foss MD ECG ORDERABLES Final Result Performing Organization Address City/[facility]/ZIP Co de Phone Number GE MUSE * (ABNORMAL) Glucose, Nova Meter (12/06/2024 10:36 AM EDT) POC-GLUCOSE 150(H) 70 - 110 mg/dL 12/06/2024 10:37 AM EDT [facility] Comment: In the event of poor peripheral blood flow, venous or arterial blood should be used due to the potential of erroneous results. Notified Nurse RBV Liner Checker [id number] 12/06/2024 10:37 AM EDT [facility] Blood WHOLE BLOOD / Unknown 12/06/2024 10:36 AM EDT 12/06/2024 10:37 AM EDT Narrative [facility] - 12/06/2024 10:37 AM EDT Liner Checker ID is - [id number] us Mary Carmen Mcfadden MD POINT OF CARE TEST ORDERABLES F inal Result [facility] [address] [phone] * XR chest AP portable (12/06/2024 7:34 [...] - 110 mg/dL 12/06/2024 5:27 AM EDT [facility] Comment: In the event of poor peripheral blood flow, venous or arterial blood should be used due to the potential of erroneous results. Notified Nurse RBV Liner Checker [id number] 12/06/2024 5:27 AM EDT [facility] Blood WHOLE BLOOD / Unknown 12/06/2024 5:26 AM EDT 12/06/2024 5:27 AM EDT Narrative [facility] - 12/06/2024 5:27 AM EDT Liner Checker ID is - [id number] us Timothy Bai MD POINT OF CARE TEST ORDERAB LES Final Result Performing Organization Address [facility]/ZIP Co de Phone Number [facility] [address] [phone] * (ABNORMAL) Ferritin (12/06/2024 3:13 AM EDT) Pathologist [facility] Ferritin 256.82(H) 4.63 - 204.00 ng/mL 12/06/2024 8:25 AM EDT [facility] Blood Venipuncture / Unknown 12/06/2024 3:13 AM EDT 12/06/2024 3:50 AM EDT us Ariel Mills MD LAB BLOOD ORDERABLES Final Res ult Performing Organization Address [facility]/ZIP Co de Phone Number [facility] [address] [phone] * Ammonia (12/06/2024 3:13 AM EDT) Ammonia 47 18 - 72 mol/L 12/06/2024 4:48 AM EDT [facility] Blood Venipuncture / Unknown 12/06/2024 3:13 AM EDT 12/06/2024 3:51 AM EDT us Timothy Bai MD LAB BLOOD ORDERABLES Final Result [facility] [address] [phone] * (ABNORMAL) Comprehensive Metabolic Panel (12/06/2024 3:13 AM EDT) Sodium 146(H) 136 - 145 meq/L 12/06/2024 4:26 AM EDT [facility] Potassium 3.9 3.4 - 5.1 meq/L 12/06/2024 4:26 AM EDT [facility] Chloride 116(H) 98 - 112 meq/L 12/06/2024 4:26 AM EDT [facility] CO2 20(L) 22 - 29 meq/L 12/06/2024 4:26 AM EDT [facility] Calcium 8.6 8.4 - 10.2 mg/dL 12/06/2024 4:26 AM EDT [facility] Glucose 149(H) 82 - 115 mg/dL 12/06/2024 4:26 AM EDT [facility] BUN 63.3(H) 9.8 - 20.1 mg/dL 12/06/2024 4:26 AM EDT [facility] Creatinine 3.37(H) 0.57 - 1.11 mg/dL 12/06/2024 4:26 AM EDT [facility] BUN/Creatinine 19 8 - 20 12/06/2024 4:26 AM T [facility] eGFR (mL/min/1.73m2) 15(L) >=60 mL/min/1. 73m2 12/06/2024 4:26 AM EDT [facility] Albumin 4.6 3.5 - 5.0 g/dL 12/06/2024 4:26 AM EDT [facility] Alkaline Phosphatase 47 40 - 150 U/L 12/06/2024 4:26 AM EDT [facility] ALT 11 <=34 U/L 12/06/2024 4:26 AM EDT [facility] Comment: ALT2 reagent used for testing does not contain P5P supplementation and therefore may miss ALT elevations in patients with B6 deficiency. This population may be as high as 10% in the [place], with risk factors including malabsorption, drug interactions, and alcoholic hepatitis. AST 21 11 - 34 U/L 12/06/2024 4:26 AM EDT [facility] Comment: AST2 reagent used for testing does not contain P5P supplementation and therefore may miss AST elevations in patients with B6 deficiency. This population may be as high as 10% in the [place], with risk factors including malabsorption, drug interactions, and alcoholic hepatitis. Total Bilirubin 1.2 0.2 - 1.2 mg/dL 12/06/2024 4:26 AM EDT [facility] Protein, Total 7.0 6.4 - 8.3 g/dL 12/06/2024 4:26 AM EDT [facility] Globulin 2.4(L) 2.5 - 4.1 g/dL 12/06/2024 4:26 AM EDT [facility] Anion Gap 14(H) 4 - 12 12/06/2024 4:26 AM T [facility] A/G Ratio 1.9 0.7 - 1.9 12/06/2024 4:26 AM EDT [facility] Osmolality Calc 311.4 mOsm/kg 4:26 AM T [facility] Blood Venipuncture / Unknown 12/06/2024 3:13 AM EDT 12/06/2024 3:50 AM EDT us Timothy Bai MD LAB BLOOD ORDERABLES Final Result [facility] [address] [phone] * Magnesium (12/06/2024 3:13 AM EDT) Magnesium 2.4 1.6 - 2.6 mg/dL 12/06/2024 4:26 AM EDT [facility] Blood Venipuncture / Unknown 12/06/2024 3:13 AM EDT 12/06/2024 3:50 AM EDT us Timothy Bai MD LAB BLOOD ORDERABLES Final Result [facility] [address] [phone] * (ABNORMAL) CBC - Hemogram (SJ-BKR) (12/06/2024 3:13 AM EDT) WBC 7.0 4.0 - 10.0 K/ L 12/06/2024 4:10 AM EDT [facility] RBC 2.83(L) 3.93 - 5.22 M/ L 12/06/2024 4:10 AM EDT [facility] Hemoglobin 8.7(L) 11.2 - 15.7 GM/DL 12/06/2024 4:10 AM EDT [facility] Hematocrit 28.2(L) 34.1 - 44.9 % 12/06/2024 4:10 AM EDT [facility] MCV 100(H) 79 - 95 fL 12/06/2024 4:10 AM EDT [facility] MCH 30.7 25.6 - 32.2 pg 12/06/2024 4:10 AM EDT [facility] MCHC 30.9(L) 32.2 - 35.5 GM/DL 12/06/2024 4:10 AM EDT [facility] RDW 17.2(H) 11.7 - 14.4 % 12/06/2024 4:10 AM EDT [facility] Platelets 80(L) 140 - 375 K/CU MM 12/06/2024 4:10 AM EDT [facility] MPV 11.7 9.4 - 12.3 fL 12/06/2024 4:10 AM EDT [facility] Blood Venipuncture / Unknown 12/06/2024 3:13 AM EDT 12/06/2024 3:53 AM EDT Timothy Bai MD LAB BLOOD ORDERABLES Final Result Performing Organization Address [facility]/ZIP Co de Phone Number [facility] 1 [place] [address], [facility] [phone] * (ABNORMAL) Glucose, Nova Meter (12/05/2024 7:21 PM EDT) POC-GLUCOSE 145(H) 70 - 110 mg/dL 12/05/2024 7:22 PM EDT [facility] Comment: In the event of poor peripheral blood flow, venous or arterial blood should be used due to the potential of erroneous results. Notified Nurse RBV Liner Checker [id number] 12/05/2024 7:22 PM EDT [facility] Blood WHOLE BLOOD / Unknown 12/05/2024 7:21 PM EDT 12/05/2024 7:22 PM EDT Narrative [facility] - 12/05/2024 7:22 PM EDT Liner Checker ID is - [id number] Timothy Bai MD POINT OF CARE TEST ORDERAB LES Final Result Performing Organization Address [facility] Co de Phone Number [facility] [address] [phone] * (ABNORMAL) Glucose, Nova Meter (12/05/2024 5:01 PM EDT) POC-GLUCOSE 140(H) 70 - 110 mg/dL 12/05/2024 5:02 PM EDT [facility] Comment: In the event of poor peripheral blood flow, venous or arterial blood should be used due to the potential of erroneous results. Notified Nurse RBV Liner Checker [id number] 12/05/2024 5:02 PM EDT [facility] Blood WHOLE BLOOD / Unknown 12/05/2024 5:01 PM EDT 12/05/2024 5:02 PM EDT Narrative [facility] - 12/05/2024 5:02 PM EDT Liner Checker ID is - [id number] us Timothy Bai MD POINT OF CARE TEST ORDERAB LES Final Result Performing Organization Address [facility]/ZIP Co de Phone Number [facility] [address] [phone] * (ABNORMAL) Hemoglobin (12/05/2024 3:36 PM EDT) Hemoglobin 8.1(L) 11.2 - 15.7 GM/DL 12/05/2024 3:57 PM EDT [facility] Blood Venipuncture / Unknown 12/05/2024 3:36 PM EDT 12/05/2024 3:47 PM EDT us Timothy Bai MD LAB BLOOD ORDERABLES Final Result Performing Organization Address [facility] Co la Phone Number [facility] [address] [phone] * (ABNORMAL) Glucose, Nova Meter (12/05/2024 10:23 AM EDT) POC-GLUCOSE 141(H) 70 - 110 mg/dL 12/05/2024 10:24 AM EDT [facility] Comment: In the event of poor peripheral blood flow, venous or arterial blood should be used due to the potential of erroneous results. Notified Nurse RBV Protocols Followed Liner Checker [id number] 12/05/2024 10:24 AM EDT [facility] Blood WHOLE BLOOD / Unknown 12/05/2024 10:23 AM EDT 12/05/2024 10:24 AM EDT Narrative [facility] - 12/05/2024 10:24 AM EDT Liner Checker ID is - [id number] us Timothy Bai MD POINT OF CARE TEST ORDERAB LES Final Result Performing Organization Address [facility] Co de Phone Number [facility] [address] [phone] * (ABNORMAL) Glucose, Nova Meter (12/05/2024 8:10 AM EDT) POC-GLUCOSE 123(H) 70 - 110 mg/dL 12/05/2024 8:27 AM EDT [facility] Comment: In the event of poor peripheral blood flow, venous or arterial blood should be used due to the potential of erroneous results. Notified Nurse RBV Liner Checker [id number] 12/05/2024 8:27 AM EDT [facility] Blood WHOLE BLOOD / Unknown 12/05/2024 8:10 AM EDT 12/05/2024 8:27 AM EDT Narrative [facility] - 12/05/2024 8:27 AM EDT Liner Checker ID is - [id number] Timothy Bai MD POINT OF CARE TEST ORDERAB LES Final Result Performing Organization Address [facility]/ZIP Co de Phone Number [facility] [address] [phone] * (ABNORMAL) Hemoglobin (12/05/2024 8:00 AM EDT) Hemoglobin 8.2(L) 11.2 - 15.7 GM/DL 12/05/2024 8:21 AM EDT [facility] Blood Venipuncture / Unknown 12/05/2024 8:00 AM EDT 12/05/2024 8:06 AM EDT Timothy Bai MD LAB BLOOD ORDERABLES Final Result [facility] [address] [phone] * Ammonia (12/05/2024 3:20 AM EDT) Ammonia 41 18 - 72 mol/L 12/05/2024 4:02 AM EDT [facility] Blood Venipuncture / Unknown 12/05/2024 3:20 AM EDT 12/05/2024 3:24 AM EDT us Timothy Bai MD LAB BLOOD ORDERABLES Final Result [facility] [address] [place] [id number] [phone] * (ABNORMAL) Comprehensive Metabolic Panel (12/05/2024 3:20 AM EDT) Sodium 146(H) 136 - 145 meq/L 12/05/2024 4:11 AM EDT [facility] Potassium 3.6 3.4 - 5.1 meq/L 12/05/2024 4:11 AM EDT [facility] Chloride 117(H) 98 - 112 meq/L 12/05/2024 4:11 AM EDT [facility] CO2 20(L) 22 - 29 meq/L 12/05/2024 4:11 AM EDT [facility] Calcium 8.3(L) 8.4 - 10.2 mg/dL 12/05/2024 4:11 AM EDT [facility] Glucose 148(H) 82 - 115 mg/dL 12/05/2024 4:11 AM EDT [facility] BUN 59.4(H) 9.8 - 20.1 mg/dL 12/05/2024 4:11 AM EDT [facility] Creatinine 3.14(H) 0.57 - 1.11 mg/dL 12/05/2024 4:11 AM EDT [facility] BUN/Creatinine 19 8 - 20 12/05/2024 4:11 AM EDT [facility] eGFR (mL/min/1.73m2) 16(L) >=60 mL/min/1. 73m2 12/05/2024 4:11 AM EDT [facility] Albumin 4.3 3.5 - 5.0 g/dL 12/05/2024 4:11 AM EDT [facility] Alkaline Phosphatase 44 40 - 150 U/L 12/05/2024 4:11 AM EDT [facility] ALT 8 <=34 U/L 12/05/2024 4:11 AM EDT [facility] Comment: ALT2 reagent used for testing does not contain P5P supplementation and therefore may miss ALT elevations in patients with B6 deficiency. This population may be as high as 10% in the [place], with risk factors including malabsorption, drug interactions, and alcoholic hepatitis. AST 23 11 - 34 U/L 12/05/2024 4:11 AM EDT [facility] Comment: AST2 reagent used for testing does not contain P5P supplementation and therefore may miss AST elevations in patients with B6 deficiency. This population may be as high as 10% in the [place], with risk factors including malabsorption, drug interactions, and alcoholic hepatitis. Total Bilirubin 1.2 0.2 - 1.2 mg/dL 12/05/2024 4:11 AM EDT [facility] Protein, Total 6.4 6.4 - 8.3 g/dL 12/05/2024 4:11 AM EDT [facility] Globulin 2.1(L) 2.5 - 4.1 g/dL 12/05/2024 4:11 AM EDT [facility] Anion Gap 13(H) 4 - 12 12/05/2024 4:11 AM EDT [facility] A/G Ratio 2.0(H) 0.7 - 1.9 12/05/2024 4:11 AM EDT [facility] Osmolality Calc 310.0 mOsm/kg 4:11 AM EDT [facility] Blood Venipuncture / Unknown 12/05/2024 3:20 AM EDT 12/05/2024 3:24 AM EDT us Timothy Bai MD LAB BLOOD ORDERABLES Final Result [facility] [address] [phone] * Magnesium (12/05/2024 3:20 AM EDT) Magnesium 2.3 1.6 - 2.6 mg/dL 12/05/2024 4:11 AM EDT [facility] Blood Venipuncture / Unknown 12/05/2024 3:20 AM EDT 12/05/2024 3:24 AM EDT us Timothy Bai MD LAB BLOOD ORDERABLES Final Result [facility] [address] [phone] * (ABNORMAL) CBC - Hemogram (SJ-BKR) (12/05/2024 3:20 AM EDT) WBC 4.2 4.0 - 10.0 K/ L 12/05/2024 3:34 AM EDT [facility] RBC 2.64(L) 3.93 - 5.22 M/ L 12/05/2024 3:34 AM EDT [facility] Hemoglobin 8.2(L) 11.2 - 15.7 GM/DL 12/05/2024 3:34 AM EDT [facility] Hematocrit 25.9(L) 34.1 - 44.9 % 12/05/2024 3:34 AM EDT [facility] MCV 98(H) 79 - 95 fL 12/05/2024 3:34 AM EDT [facility] MCH 31.1 25.6 - 32.2 pg 12/05/2024 3:34 AM EDT [facility] MCHC 31.7(L) 32.2 - 35.5 GM/DL 12/05/2024 3:34 AM EDT [facility] RDW 17.1(H) 11.7 - 14.4 % 12/05/2024 3:34 AM EDT [facility] Platelets 60(L) 140 - 375 K/CU MM 12/05/2024 3:34 AM EDT [facility] MPV 11.3 9.4 - 12.3 fL 12/05/2024 3:34 AM EDT [facility] Blood Venipuncture / Unknown 12/05/2024 3:20 AM EDT 12/05/2024 3:24 AM EDT Timothy Bai MD LAB BLOOD ORDERABLES Final Result [facility] [address] [phone] * (ABNORMAL) Hemoglobin (12/04/2024 11:54 PM EDT) [facility] Hemoglobin 8.7(L) 11.2 - 15.7 GM/DL 12/05/2024 12:07 AM EDT [facility] Blood Venipuncture / Unknown 12/04/2024 11:54 PM EDT 12/04/2024 11:59 PM EDT Timothy Bai MD LAB BLOOD ORDERABLES Final Result Performing Organization Address [facility] Co de Phone Number [facility] [address] [phone] * (ABNORMAL) Glucose, Nova Meter (12/04/2024 10:20 PM EDT) [facility] POC-GLUCOSE 147(H) 70 - 110 mg/dL 12/04/2024 10:22 PM EDT [facility] Comment: In the event of poor peripheral blood flow, venous or arterial blood should be used due to the potential of erroneous results. Protocols Followed Liner Checker [id number] 12/04/2024 10:22 PM EDT [facility] Blood WHOLE BLOOD / Unknown 12/04/2024 10:20 PM EDT 12/04/2024 10:21 PM EDT Narrative [facility] - 12/04/2024 10:22 PM EDT Liner Checker ID is - [id number] Timothy Bai MD POINT OF CARE TEST ORDERAB LES Final Result Performing Organization Address [facility] Co de Phone Number [facility] 1 [place] [address], [facility] [phone] * ECG 12 lead (12/04/2024 8:08 PM EDT) [facility] SYSTOLIC BLOOD PRESSURE (MCT) 133 mmHg GE MUSE DIASTOLIC BLOOD PRESSURE (MCT) 61 mmHg GE MUSE VENTRICULAR RATE EKG/MIN 85 BPM GE MUSE ATRIAL RATE (MCT) 85 BPM GE MUSE AL Interval 140 ms GE MUSE QRS-INTERVAL (MSEC) 94 ms GE MUSE QT Interval 426 ms GE MUSE QTC Interval 506 ms GE MUSE P [place] 44 degrees GE MUSE R AXIS (MCT) 27 degrees GE MUSE T Wave [place] -27 degrees GE MUSE [place] Diagnosis Normal sinus rhythm Nonspecific T wave abnormality Abnormal ECG Confirmed by DEYSI FOSS M.D. ([id number]) on 12/05/2024 1:52:09 PM GE MUSE 12/04/2024 8:08 PM EDT 12/05/2024 1:52 PM EDT Timothy Bai MD ECG ORDERABLES Final Resu lt Performing Organization Address [facility]/ZIP Co de Phone Number GE MUSE * (ABNORMAL) Glucose, Nova Meter (12/04/2024 4:50 PM EDT) POC-GLUCOSE 137(H) 70 - 110 mg/dL 12/04/2024 4:51 PM EDT [facility] Comment: In the event of poor peripheral blood flow, venous or arterial blood should be used due to the potential of erroneous results. Protocols Followed Liner Checker [id number] 12/04/2024 4:51 PM EDT [facility] Blood WHOLE BLOOD / Unknown 12/04/2024 4:50 PM EDT 12/04/2024 4:51 PM EDT Narrative [facility] - 12/04/2024 4:51 PM EDT Liner Checker ID is - [id number] us Timothy Bai MD POINT OF CARE TEST ORDERAB LES Final Result Performing Organization Address City/[facility]/ZIP Co de Phone Number [facility] [address] [phone] * (ABNORMAL) Hemoglobin (12/04/2024 4:27 PM EDT) Hemoglobin 8.9(L) 11.2 - 15.7 GM/DL 12/04/2024 4:36 PM EDT [facility] Blood Venipuncture / Unknown 12/04/2024 4:27 PM EDT 12/04/2024 4:31 PM EDT us Timothy Bai MD LAB BLOOD ORDERABLES Final Result [facility] [address] [phone] * (ABNORMAL) Basic Metabolic Panel (12/04/2024 10:53 AM EDT) Sodium 146(H) 136 - 145 meq/L 12/04/2024 11:17 AM EDT [facility] Potassium 3.6 3.4 - 5.1 meq/L 12/04/2024 11:17 AM EDT [facility] CO2 20(L) 22 - 29 meq/L 12/04/2024 11:17 AM EDT [facility] Chloride 116(H) 98 - 112 meq/L 12/04/2024 11:17 AM EDT [facility] Glucose 137(H) 82 - 115 mg/dL 12/04/2024 11:17 AM EDT [facility] BUN 61.1(H) 9.8 - 20.1 mg/dL 12/04/2024 11:17 AM EDT [facility] Creatinine 3.38(H) 0.57 - 1.11 mg/dL 12/04/2024 11:17 AM EDT [facility] BUN/Creatinine 18 8 - 20 12/04/2024 11:17 AM EDT [facility] Calcium 8.5 8.4 - 10.2 mg/dL 12/04/2024 11:17 AM EDT [facility] Anion Gap 14(H) 4 - 12 12/04/2024 11:17 AM EDT [facility] eGFR (mL/min/1.73m2) 15(L) >=60 mL/min/1.7 3m2 12/04/2024 11:17 AM EDT [facility] Osmolality Calc 310.0 mOsm/kg 11:17 AM EDT [facility] Blood Venipuncture / Unknown 12/04/2024 10:53 AM EDT 12/04/2024 10:57 AM EDT Timothy Bai MD LAB BLOOD ORDERABLES Final Result Performing Organization Address [facility] Co de Phone Number [facility] [address] [phone] * (ABNORMAL) Glucose, Nova Meter (12/04/2024 10:52 AM EDT) Pathologist [facility] POC-GLUCOSE 136(H) 70 - 110 mg/dL 12/04/2024 10:57 AM EDT [facility] Comment: In the event of poor peripheral blood flow, venous or arterial blood should be used due to the potential of erroneous results. Notified Nurse RBV Liner Checker [id number] 12/04/2024 10:57 AM EDT [facility] Blood WHOLE BLOOD / Unknown 12/04/2024 10:52 AM EDT 12/04/2024 10:57 AM EDT Narrative [facility] - 12/04/2024 10:57 AM EDT Liner Checker ID is - [id number] us Timothy Bai MD POINT OF CARE TEST ORDERAB LES Final Result Performing Organization Address [facility] Phone Number [facility] [address] [phone] * (ABNORMAL) CBC with automated diff (12/04/2024 8:15 AM EDT) [facility] WBC 4.1 4.0 - 10.0 K/ L 12/04/2024 9:56 AM EDT [facility] RBC 2.90(L) 3.93 - 5.22 M/ L 12/04/2024 9:56 AM EDT [facility] Hemoglobin 8.8(L) 11.2 - 15.7 GM/DL 12/04/2024 9:56 AM EDT [facility] Hematocrit 29.0(L) 34.1 - 44.9 % 12/04/2024 9:56 AM EDT [facility] MCV 100(H) 79 - 95 fL 12/04/2024 9:56 AM EDT [facility] MCH 30.3 25.6 - 32.2 pg 12/04/2024 9:56 AM EDT [facility] MCHC 30.3(L) 32.2 - 35.5 GM/DL 12/04/2024 9:56 AM EDT [facility] RDW 17.7(H) 11.7 - 14.4 % 12/04/2024 9:56 AM EDT [facility] Platelets 65(L) 140 - 375 K/CU MM 12/04/2024 9:56 AM EDT [facility] MPV 10.8 9.4 - 12.3 fL 12/04/2024 9:56 AM EDT [facility] % Neutros 79(H) 34 - 71 % 12/04/2024 9:56 AM EDT [facility] % Lymphs 12(L) 19 - 52 % 12/04/2024 9:56 AM EDT [facility] % Monos 9 5 - 13 % 12/04/2024 9:56 AM EDT [facility] % Eos 0(L) 1 - 6 % 12/04/2024 9:56 AM EDT [facility] % Baso 0 0 - 1 % 12/04/2024 9:56 AM EDT [facility] NRBC Absolute <0.01 0 - 0.012 K/ul 12/04/2024 9:56 AM EDT [facility] # Neutros 3.25 1.56 - 6.13 K/ L 12/04/2024 9:56 AM EDT [facility] # Lymphs 0.48(L) 1.18 - 3.74 K/ L 12/04/2024 9:56 AM EDT [facility] # Monos 0.35 0.24 - 0.86 K/ L 12/04/2024 9:56 AM EDT [facility] # Eos <0.03(L) 0.04 - 0.36 K/ L 12/04/2024 9:56 AM EDT [facility] # Baso <0.03 0.01 - 0.08 K/ L 12/04/2024 9:56 AM EDT [facility] Immature Granulocytes-Re lative 0.50(H) 0.01 - 0.43 % 12/04/2024 9:56 AM EDT [facility] # IG <0.03 0.00 - 0.03 K/uL 12/04/2024 9:56 AM EDT [facility] Blood Venipuncture / Unknown 12/04/2024 8:15 AM EDT 12/04/2024 8:32 AM EDT Narrative [facility] - 12/04/2024 9:56 AM EDT [...] Bai MD LAB BLOOD ORDERABLES Final Result [facility] [address] [phone] * (ABNORMAL) Hemoglobin (12/04/2024 8:15 AM EDT) Pathologist [facility] Hemoglobin 9.0(L) 11.2 - 15.7 GM/DL 12/04/2024 8:36 AM EDT [facility] Blood Venipuncture / Unknown 12/04/2024 8:15 AM EDT 12/04/2024 8:32 AM EDT Timothy Bai MD LAB BLOOD ORDERABLES Final Result [facility] [address] [phone] * ANCA Vasculitis Profile(SENDOUT) (12/04/2024 8:15 AM EDT) Pathologist [facility] Myeloperoxidase (MPO) Ab, IgG 0 0 - 19 AU/mL 12/07/2024 8:52 AM EDT [facility] [email or web address] Comment: INTERPRETIVE INFORMATION: Myeloperoxidase Abs, IgG 19 AU/mL or Less ......... Negative 20-25 AU/mL .............. Equivocal 26 AU/mL or Greater ...... Positive Approximately 90% of patients with a P-ANCA pattern by IFA have antibodies specific for MPO. Serine Proteinase 3 (PR3) Ab, IgG 0 0 - 19 AU/mL 12/07/2024 8:52 AM EDT [facility] [email or web address] Comment: INTERPRETIVE INFORMATION: Serine Proteinase 3, IgG 19 AU/mL or Less ........ Negative 20-25 AU/mL ............. Equivocal 26 AU/mL or Greater ..... Positive Approximately 85% of patients with a C-ANCA pattern by IFA have antibodies specific for PR3. ANCA IFA Titer <1:20 <1:20 12/07/2024 8:52 AM EDT [facility] ANCA IFA Pattern None Detected None Detected 12/07/2024 8:52 AM EDT [facility] [email or web address] Comment: INTERPRETIVE INFORMATION: ANCA IFA Pattern Neutrophil Cytoplasmic Antibodies (C-ANCA = granular cytoplasmic staining, P-ANCA = perinuclear staining) are found in the serum of over 90 percent of patients with certain necrotizing systemic vasculitides, and usually in less than 5 percent of patients with collagen vascular disease or arthritis. Performed By: [facility] [address] [place] [address] Sr Risk Management Consultant: Lalo Mortensen MD, PhD CLIA Number: [id number] Blood Venipuncture / Unknown 12/04/2024 8:15 AM EDT 12/04/2024 8:32 AM EDT us Laura Cervantes MD LAB BLOOD ORDERABLES Final Re sult [email or web address] [address] [place] [address], [facility] [phone] * JEANA Reflexive Profile(SENDOUT) (12/04/2024 8:15 AM EDT) Anti-Nuclear Ab (JEANA), IgG by SHARON None Detected None Detected 12/06/2024 3:51 PM EDT [employer] Comment: No Anti-Nuclear Antibodies (JEANA) detected by SHARON. The Extractable Nuclear Antigen Antibodies (PROJECT DRILLING ENGINEER, [place], SSA 52, SSA 60, Scleroderma, Lilia-1 and SSB) and Double Stranded DNA (dsDNA) Antibody, IgG will not be performed. If suspicion of connective tissue disease is strong, and JEANA is negative by SHARON, consider testing for JEANA by IFA ([id number]). INTERPRETIVE INFORMATION: Anti-Nuclear Antibodies (JEANA), IgG by SHARON Antinuclear Antibodies (JEANA), IgG by SHARON: JEANA specimens are screened using enzyme-linked immunosorbent assay (SHARON) methodology. All SHARON results reported as Detected are further tested by indirect fluorescent assay (IFA) using HEp-2 substrate with an IgG-specific conjugate. The JEANA SHARON screen is designed to detect antibodies against dsDNA, histones, SS-A (Ro), SS-B (La), Llanes, Llanes/PRO[employer] D[employer]LLING [employer]INEER, Scl-70, Lilia-1, centromeric proteins, other antigens extracted from the HEp-2 cell nucleus. JEANA SHARON assays have been reported to have lower sensitivities than JEANA IFA for systemic autoimmune rheumatic diseases (SARD). Negative results do not necessarily rule out SARD. Performed By: [facility] [address] [place] [address] Sr Risk Management Consultant: Lalo Mortensen MD, PhD CLIA Number: [id number] Blood Venipuncture / Unknown 12/04/2024 8:15 AM EDT 12/04/2024 8:32 AM EDT us Laura Cervantes MD LAB BLOOD ORDERABLES Final Re sult [employer] [address] [id number], [facility] [phone] * XR chest AP portable (12/04/2024 6:49 [...] Images reviewed, interpreted, and dictated by Dr. Haeseb Gil. Transcribed by Regina Villasenor PA-C. Kirsty Tuttle APRN IM DIAGNOSTIC IMAGING ORDER LONNY Final Result * (ABNORMAL) Blood gas, arterial (12/04/2024 6:34 AM EDT) pH, Arterial 7.29(L) 7.35 - 7.45 12/04/2024 7:10 AM EDT [facility] pCO2, Arterial 43 35 - 45 mm Hg 12/04/2024 7:10 AM EDT [facility] pO2, Arterial 106(H) 80 - 100 mm Hg 12/04/2024 7:10 AM EDT [facility] HCO3, Arterial 21 20 - 26 mmol/L 12/04/2024 7:10 AM EDT [facility] Base Excess, Arterial -5.2(L) -2.0 - 2.0 mmol/L 12/04/2024 7:10 AM EDT [facility] O2 Sat, Arterial 98.8 95.0 - 100.0 % 12/04/2024 7:10 AM EDT [facility] CTO2 ARTERIAL 11.9 mmol/L 12/04/2024 7:10 AM EDT [facility] THB ARTERIAL 8.6(L) 12.0 - 18.0 g/dL 12/04/2024 7:10 AM EDT [facility] COLLECTION SITE Right Brachial 12/04/2024 7:10 AM EDT [facility] Arterial Puncture Yes 12/04/2024 7:10 AM EDT [facility] Blood Gas O2 Delivery Device Cannula 12/04/2024 7:10 AM EDT [facility] Oxygen Flow Rate 3 12/05/19 7:10 AM EDT [facility] Blood Gas PT Temperature C 37.0 12/04/2024 7:10 AM EDT [facility] Sen's Test Not Applicable 12/05/19 7:10 AM EDT [facility] Critical Values Notification Critical Blood gas called to DAYANARA MATIAS . Results acknowledged/r ead back to [id number] and confirmed on 12/04/2024 07:09 12/04[facility] Number of Draw Attempts 1 12/04/2024 7:10 AM EDT [facility] FIO2 12/04/2024 7:10 AM EDT [facility] Blood Gas Temperature Corrected Results No No 12/04/2024 7:10 AM [facility] Blood, Arterial 12/04/2024 6 :34 AM EDT 12/04/2024 7:10 AM EDT us Kirsty Tuttle APRN LAB BLOOD ORDERABLES Final R esult [facility] [address] [phone] * (ABNORMAL) Glucose, Nova Meter (12/04/2024 6:13 AM EDT) POC-GLUCOSE 155(H) 70 - 110 mg/dL 12/04/2024 6:14 AM EDT [facility] Comment: In the event of poor peripheral blood flow, venous or arterial blood should be used due to the potential of erroneous results. Protocols Followed Liner [employer] [id number] 12/04/2024 6:14 AM EDT [facility] Blood WHOLE BLOOD / Unknown 12/04/2024 6:13 AM EDT 12/04/2024 6:14 AM EDT Narrative [facility] - 12/04/2024 6:14 AM EDT Liner Checker ID is - [id number] us Timothy Bai MD POINT OF CARE TEST ORDERAB LES Final Result [facility] [address] [phone] * (ABNORMAL) CBC with automated diff (12/04/2024 3:35 AM EDT) WBC 3.2(L) 4.0 - 10.0 K/ L 12/04/2024 3:55 AM EDT [facility] RBC 2.88(L) 3.93 - 5.22 M/ L 12/04/2024 3:55 AM EDT [facility] Hemoglobin 8.9(L) 11.2 - 15.7 GM/DL 12/04/2024 3:55 AM EDT [facility] Hematocrit 28.4(L) 34.1 - 44.9 % 12/04/2024 3:55 AM EDT [facility] MCV 99(H) 79 - 95 fL 12/04/2024 3:55 AM EDT [facility] MCH 30.9 25.6 - 32.2 pg 12/04/2024 3:55 AM EDT [facility] MCHC 31.3(L) 32.2 - 35.5 GM/DL 12/04/2024 3:55 AM EDT [facility] RDW 17.4(H) 11.7 - 14.4 % 12/04/2024 3:55 AM EDT [facility] Platelets 61(L) 140 - 375 K/CU MM 12/04/2024 3:55 AM EDT [facility] MPV 11.1 9.4 - 12.3 fL 12/04/2024 3:55 AM EDT [facility] % Neutros 80(H) 34 - 71 % 12/04/2024 3:55 AM EDT [facility] % Lymphs 12(L) 19 - 52 % 12/04/2024 3:55 AM EDT [facility] % Monos 8 5 - 13 % 12/04/2024 3:55 AM EDT [facility] % Eos 0(L) 1 - 6 % 12/04/2024 3:55 AM EDT [facility] % Baso 0 0 - 1 % 12/04/2024 3:55 AM EDT [facility] NRBC Absolute <0.01 0 - 0.012 K/ul 12/04/2024 3:55 AM EDT [facility] # Neutros 2.58 1.56 - 6.13 K/ L 12/04/2024 3:55 AM EDT [facility] # Lymphs 0.39(L) 1.18 - 3.74 K/ L 12/04/2024 3:55 AM EDT [facility] # Monos 0.25 0.24 - 0.86 K/ L 12/04/2024 3:55 AM EDT [facility] # Eos <0.03(L) 0.04 - 0.36 K/ L 12/04/2024 3:55 AM EDT [facility] # Baso <0.03 0.01 - 0.08 K/ L 12/04/2024 3:55 AM EDT [facility] Immature Granulocytes-Re lative 0.30 0.01 - 0.43 % 12/04/2024 3:55 AM EDT [facility] # IG <0.03 0.00 - 0.03 K/uL 12/04/2024 3:55 AM T [facility] Blood Venipuncture / Unknown 12/04/2024 3:35 AM EDT 12/04/2024 3:41 AM EDT [facility] - 12/04/2024 3:55 AM EDT When [...] ORDERABLES Final R esult Performing Organization Address [facility] Co de Phone Number [facility] [address] [phone] * Ammonia (12/04/2024 3:35 AM EDT) Ammonia 30 18 - 72 mol/L 12/04/2024 3:57 AM EDT [facility] Blood Venipuncture / Unknown 12/04/2024 3:35 AM EDT 12/04/2024 3:41 AM EDT Timothy Bai MD LAB BLOOD ORDERABLES Final Result Performing Organization Address [facility] Phone Number [facility] [address] [phone] * Phosphorus (12/04/2024 3:34 AM EDT) Phosphorus 4.2 2.5 - 4.5 mg/dL 12/04/2024 4:04 AM EDT [facility] Blood Venipuncture / Unknown 12/04/2024 3:34 AM EDT 12/04/2024 3:41 AM EDT Kirsty Tuttle APRN LAB BLOOD ORDERABLES Final R esult Performing Organization Address [facility] Co de Phone Number [facility] [address] [phone] * (ABNORMAL) Comprehensive Metabolic Panel (12/04/2024 3:34 AM EDT) Sodium 143 136 - 145 meq/L 12/04/2024 4:04 AM EDT [facility] Potassium 3.7 3.4 - 5.1 meq/L 12/04/2024 4:04 AM EDT [facility] Chloride 115(H) 98 - 112 meq/L 12/04/2024 4:04 AM [facility] CO2 20(L) 22 - 29 meq/L 12/04/2024 4:04 AM [facility] Calcium 8.3(L) 8.4 - 10.2 mg/dL 12/04/2024 4:04 AM [facility] Glucose 203(H) 82 - 115 mg/dL 12/04/2024 4:04 AM [facility] BUN 58.6(H) 9.8 - 20.1 mg/dL 12/04/2024 4:04 AM [facility] Creatinine 3.43(H) 0.57 - 1.11 mg/dL 12/04/2024 4:04 AM [facility] BUN/Creatinine 17 8 - 20 12/04/2024 4:04 AM [facility] eGFR (mL/min/1.73m2) 15(L) >=60 mL/min/1. 73m2 12/04/2024 4:04 AM [facility] Albumin 4.2 3.5 - 5.0 g/dL 12/04/2024 4:04 AM [facility] Alkaline Phosphatase 47 40 - 150 U/L 12/04/2024 4:04 AM [facility] ALT 11 <=34 U/L 12/04/2024 4:04 AM [facility] Comment: ALT2 reagent used for testing does not contain P5P supplementation and therefore may miss ALT elevations in patients with B6 deficiency. This population may be as high as 10% in the [place], with risk factors including malabsorption, drug interactions, and alcoholic hepatitis. AST 21 11 - 34 U/L 12/04/2024 4:04 AM [facility] Comment: AST2 reagent used for testing does not contain P5P supplementation and therefore may miss AST elevations in patients with B6 deficiency. This population may be as high as 10% in the [place], with risk factors including malabsorption, drug interactions, and alcoholic hepatitis. Total Bilirubin 1.1 0.2 - 1.2 mg/dL 12/04/2024 4:04 AM [facility] Protein, Total 6.7 6.4 - 8.3 g/dL 12/04/2024 4:04 AM EDT [facility] Globulin 2.5 2.5 - 4.1 g/dL 12/04/2024 4:04 AM EDT [facility] Anion Gap 12 4 - 12 12/04/2024 4:04 AM EDT [facility] A/G Ratio 1.7 0.7 - 1.9 12/04/2024 4:04 AM EDT [facility] Osmolality Calc 307.2 mOsm/kg 4:04 AM EDT [facility] Blood Venipuncture / Unknown 12/04/2024 3:34 AM EDT 12/04/2024 3:41 AM EDT Timothy Bai MD LAB BLOOD ORDERABLES Final Result Performing Organization Address [facility] Phone Number [facility] [address] [phone] * Magnesium (12/04/2024 3:34 AM EDT) Magnesium 2.5 1.6 - 2.6 mg/dL 12/04/2024 4:04 AM EDT [facility] Blood Venipuncture / Unknown 12/04/2024 3:34 AM EDT 12/04/2024 3:41 AM EDT Timothy Bai MD LAB BLOOD ORDERABLES Final Result Performing Organization Address [facility]/State/ZIP Co de Phone Number [facility] [address] [phone] * ECG 12 lead (12/04/2024 3:25 AM EDT) SYSTOLIC BLOOD PRESSURE (MCT) 165 mmHg GE MUSE DIASTOLIC BLOOD PRESSURE (MCT) 77 mmHg GE MUSE VENTRICULAR RATE EKG/MIN 80 BPM GE MUSE ATRIAL RATE (MCT) 80 BPM GE MUSE AL Interval 154 ms GE MUSE QRS-INTERVAL (MSEC) 76 ms GE MUSE QT Interval 380 ms GE MUSE QTC Interval 438 ms GE MUSE P [place] 47 degrees GE MUSE R AXIS (MCT) 44 degrees GE MUSE T Wave [place] -30 degrees GE MUSE [place] Diagnosis Normal sinus rhythm Low voltage QRS Nonspecific T wave abnormality Confirmed by DEYSI FOSS M.D. ([id number]) on 12/04/2024 11:05:22 AM GE MUSE 12/04/2024 3:25 AM EDT 12/04/2024 11:05 AM EDT us Deysi Foss MD ECG ORDERABLES Final Result Performing Organization Address [facility] Co de Phone Number GE MUSE * (ABNORMAL) Hemoglobin (12/04/2024 1:04 AM EDT) [facility] Hemoglobin 9.0(L) 11.2 - 15.7 GM/DL 12/04/2024 1:30 AM EDT [facility] Blood Venipuncture / Unknown 12/04/2024 1:04 AM EDT 12/04/2024 1:20 AM EDT Timothy Bai MD LAB BLOOD ORDERABLES Final Result Performing Organization Address [facility] Co de Phone Number [facility] [address] [place] [address] * (ABNORMAL) Glucose, Nova Meter (12/03/2024 9:41 PM EDT) [facility] POC-GLUCOSE 146(H) 70 - 110 mg/dL 12/03/2024 9:43 PM EDT [facility] Comment: In the event of poor peripheral blood flow, venous or arterial blood should be used due to the potential of erroneous results. Protocols Followed Liner Checker [id number] 12/03/2024 9:43 PM EDT [facility] Blood WHOLE BLOOD / Unknown 12/03/2024 9:41 PM EDT 12/03/2024 9:43 PM EDT Narrative [facility] - 12/03/2024 9:43 PM EDT Liner Checker ID is - [id number] us Timothy Bai MD POINT OF CARE TEST ORDERAB LES Final Result Performing Organization Address [facility]/ZIP Co de Phone Number [facility] [address] [phone] * (ABNORMAL) Glucose, Nova Meter (12/03/2024 5:19 PM EDT) POC-GLUCOSE 146(H) 70 - 110 mg/dL 12/03/2024 5:24 PM EDT [facility] Comment: In the event of poor peripheral blood flow, venous or arterial blood should be used due to the potential of erroneous results. Notified Nurse RBV Liner Checker [id number] 12/03/2024 5:24 PM EDT [facility] Blood WHOLE BLOOD / Unknown 12/03/2024 5:19 PM EDT 12/03/2024 5:24 PM EDT Narrative [facility] - 12/03/2024 5:24 PM EDT Liner Checker ID is - [id number] us Timothy Bai MD POINT OF CARE TEST ORDERAB LES Final Result Performing Organization Address [facility] Co de Phone Number [facility] [address] [phone] * XR chest AP portable (12/03/2024 4:45 [...] (MCT) -11 degrees GE MUSE T Wave [place] -58 degrees GE MUSE [place] Diagnosis Atrial fibrillation with rapid ventricular response Possible Anterolateral infarct , age undetermined Possible abberancy Confirmed by DEYSI FOSS M.D. ([id number]) on 12/03/2024 5:58:45 PM GE MUSE 12/03/2024 2:16 PM EDT 12/03/2024 5:58 PM EDT us Timothy Bai MD ECG ORDERABLES Final Resu lt GE MUSE * (ABNORMAL) Glucose, Nova Meter (12/03/2024 10:45 AM EDT) POC-GLUCOSE 156(H) 70 - 110 mg/dL 12/03/2024 10:49 AM EDT [facility] Comment: In the event of poor peripheral blood flow, venous or arterial blood should be used due to the potential of erroneous results. Notified Nurse RBV Liner Checker [id number] 12/03/2024 10:49 AM EDT [facility] Blood WHOLE BLOOD / Unknown 12/03/2024 10:45 AM EDT 12/03/2024 10:49 AM EDT Narrative [facility] - 12/03/2024 10:49 AM EDT Liner Checker ID is - [id number] us Timothy Bai MD POINT OF CARE TEST ORDERAB LES Final Result [facility] [address] [phone] * ECG 12 lead (12/03/2024 10:39 AM EDT) VENTRICULAR RATE EKG/MIN 97 BPM GE MUSE ATRIAL RATE (MCT) 97 BPM GE MUSE AL Interval 150 ms GE MUSE QRS-INTERVAL (MSEC) 88 ms GE MUSE QT Interval 362 ms GE MUSE QTC Interval 459 ms GE MUSE P [place] 40 degrees GE MUSE R AXIS (MCT) 8 degrees GE MUSE T Wave [place] -8 degrees GE MUSE [place] Diagnosis Normal sinus rhythm Normal ECG No previous ECGs available Confirmed by DEYSI FOSS M.D. ([id number]) on 12/03/2024 5:59:01 PM GE MUSE 12/03/2024 10:3 9 AM EDT 12/03/2024 5:59 PM EDT us Timothy Bai MD ECG ORDERABLES Final Resu lt [employer] * (ABNORMAL) CBC with automated diff (12/03/2024 8:31 AM EDT) Pathologist [facility] WBC 2.8(L) 4.0 - 10.0 K/ L 12/03/2024 9:00 AM EDT [facility] RBC 2.68(L) 3.93 - 5.22 M/ L 12/03/2024 9:00 AM EDT [facility] Hemoglobin 8.2(L) 11.2 - 15.7 GM/DL 12/03/2024 9:00 AM EDT [facility] Hematocrit 26.1(L) 34.1 - 44.9 % 12/03/2024 9:00 AM EDT [facility] MCV 97(H) 79 - 95 fL 12/03/2024 9:00 AM EDT [facility] MCH 30.6 25.6 - 32.2 pg 12/03/2024 9:00 AM EDT [facility] MCHC 31.4(L) 32.2 - 35.5 GM/DL 12/03/2024 9:00 AM EDT [facility] RDW 17.5(H) 11.7 - 14.4 % 12/03/2024 9:00 AM EDT [facility] Platelets 55(L) 140 - 375 K/CU MM 12/03/2024 9:00 AM EDT [facility] MPV 10.0 9.4 - 12.3 fL 12/03/2024 9:00 AM EDT [facility] % Neutros 79(H) 34 - 71 % 12/03/2024 9:00 AM T [facility] % Lymphs 13(L) 19 - 52 % 12/03/2024 9:00 AM EDT [facility] % Monos 6 5 - 13 % 12/03/2024 9:00 AM EDT [facility] % Eos 0(L) 1 - 6 % 12/03/2024 9:00 AM EDT [facility] % Baso 0 0 - 1 % 12/03/2024 9:00 AM EDT [facility] NRBC Absolute <0.01 0 - 0.012 K/ul 12/03/2024 9:00 AM EDT [facility] # Neutros 2.22 1.56 - 6.13 K/ L 12/03/2024 9:00 AM EDT [facility] # Lymphs 0.37(L) 1.18 - 3.74 K/ L 12/03/2024 9:00 AM EDT [facility] # Monos 0.18(L) 0.24 - 0.86 K/ L 12/03/2024 9:00 AM EDT [facility] # Eos <0.03(L) 0.04 - 0.36 K/ L 12/03/2024 9:00 AM EDT [facility] # Baso <0.03 0.01 - 0.08 K/ L 12/03/2024 9:00 AM EDT [facility] Immature Granulocytes-Re lative 0.70(H) 0.01 - 0.43 % 12/03/2024 9:00 AM EDT [facility] # IG <0.03 0.00 - 0.03 K/uL 12/03/2024 9:00 AM EDT [facility] Blood Venipuncture / Unknown 12/03/2024 8:31 AM EDT 12/03/2024 8:40 AM EDT Narrative [facility] - 12/03/2024 9:00 AM EDT [...] BLOOD ORDERABLES Final Result Performing Organization Address [facility]/ZIP Co de Phone Number [facility] [address] [place] [address] * Creatine Kinase (CK) (12/03/2024 7:39 AM EDT) Total CK 55 29 - 168 U/L 12/03/2024 6:19 PM EDT [facility] Blood Venipuncture / Unknown 12/03/2024 7:39 AM EDT 12/03/2024 5:52 PM EDT us Laura Cervantes MD LAB BLOOD ORDERABLES Final Re sult [facility] [address] [phone] * Ammonia (12/03/2024 7:39 AM EDT) Ammonia 36 18 - 72 mol/L 12/03/2024 7:56 AM EDT [facility] Blood Venipuncture / Unknown 12/03/2024 7:39 AM EDT 12/03/2024 7:45 AM EDT Narrative [facility] - 12/03/2024 7:56 AM EDT Specimen slightly hemolyzed us Timothy Bai MD LAB BLOOD ORDERABLES Final Result [facility] [address] [id number], [facility] [phone] * (ABNORMAL) Comprehensive Metabolic Panel (12/03/2024 7:39 AM EDT) Sodium 147(H) 136 - 145 meq/L 12/03/2024 8:05 AM EDT [facility] Potassium 4.1 3.4 - 5.1 meq/L 12/03/2024 8:05 AM EDT [facility] Chloride 119(H) 98 - 112 meq/L 12/03/2024 8:05 AM EDT [facility] CO2 20(L) 22 - 29 meq/L 12/03/2024 8:05 AM EDT [facility] Calcium 8.3(L) 8.4 - 10.2 mg/dL 12/03/2024 8:05 AM EDT [facility] Glucose 145(H) 82 - 115 mg/dL 12/03/2024 8:05 AM EDT [facility] BUN 53.7(H) 9.8 - 20.1 mg/dL 12/03/2024 8:05 AM EDT [facility] Creatinine 3.48(H) 0.57 - 1.11 mg/dL 12/03/2024 8:05 AM EDT [facility] BUN/Creatinine 15 8 - 20 12/03/2024 8:05 AM EDT [facility] eGFR (mL/min/1.73m2) 14(L) >=60 mL/min/1. 73m2 12/03/2024 8:05 AM EDT [facility] Albumin 4.4 3.5 - 5.0 g/dL 12/03/2024 8:05 AM EDT [facility] Alkaline Phosphatase 49 40 - 150 U/L 12/03/2024 8:05 AM EDT [facility] ALT 7 <=34 U/L 12/03/2024 8:05 AM EDT [facility] Comment: ALT2 reagent used for testing does not contain P5P supplementation and therefore may miss ALT elevations in patients with B6 deficiency. This population may be as high as 10% in the [place], with risk factors including malabsorption, drug interactions, and alcoholic hepatitis. AST 21 11 - 34 U/L 12/03/2024 8:05 AM EDT [facility] Comment: AST2 reagent used for testing does not contain P5P supplementation and therefore may miss AST elevations in patients with B6 deficiency. This population may be as high as 10% in the [place], with risk factors including malabsorption, drug interactions, and alcoholic hepatitis. Total Bilirubin 1.1 0.2 - 1.2 mg/dL 12/03/2024 8:05 AM EDT [facility] Protein, Total 6.8 6.4 - 8.3 g/dL 12/03/2024 8:05 AM EDT [facility] Globulin 2.4(L) 2.5 - 4.1 g/dL 12/03/2024 8:05 AM EDT [facility] Anion Gap 12 4 - 12 12/03/2024 8:05 AM T [facility] A/G Ratio 1.8 0.7 - 1.9 12/03/2024 8:05 AM EDT [facility] Osmolality Calc 309.7 mOsm/kg 8:05 AM EDT [facility] Blood Venipuncture / Unknown 12/03/2024 7:39 AM EDT 12/03/2024 7:46 AM EDT us Timothy Bai MD LAB BLOOD ORDERABLES Final Result [facility] [address] [phone] * Magnesium (12/03/2024 7:39 AM EDT) Magnesium 2.5 1.6 - 2.6 mg/dL 12/03/2024 8:05 AM EDT [facility] Blood Venipuncture / Unknown 12/03/2024 7:39 AM EDT 12/03/2024 7:46 AM EDT us Timothy Bai MD LAB BLOOD ORDERABLES Final Result [facility] [address] [place] [address], [facility] [phone] * (ABNORMAL) Glucose, Nova Meter (12/03/2024 5:13 AM EDT) POC-GLUCOSE 142(H) 70 - 110 mg/dL 12/03/2024 5:15 AM EDT [facility] Comment: In the event of poor peripheral blood flow, venous or arterial blood should be used due to the potential of erroneous results. Protocols Followed Liner Checker [id number] 12/03/2024 5:15 AM EDT [facility] Blood WHOLE BLOOD / Unknown 12/03/2024 5:13 AM EDT 12/03/2024 5:15 AM EDT Narrative [facility] - 12/03/2024 5:15 AM EDT Liner Checker ID is - [id number] us Timothy Bai MD POINT OF CARE TEST ORDERAB LES Final Result [facility] [address] [place] [address], [facility] [phone] * (ABNORMAL) Glucose, Nova Meter (12/03/2024 1:12 AM EDT) POC-GLUCOSE 168(H) 70 - 110 mg/dL 12/03/2024 1:13 AM EDT [facility] Comment: In the event of poor peripheral blood flow, venous or arterial blood should be used due to the potential of erroneous results. Protocols Followed Liner Checker [id number] 12/03/2024 1:13 AM EDT [facility] Blood WHOLE BLOOD / Unknown 12/03/2024 1:12 AM EDT 12/03/2024 1:13 AM EDT Narrative [facility] - 12/03/2024 1:13 AM EDT Liner Checker ID is - [id number] us Timothy Bai MD POINT OF CARE TEST ORDERAB LES Final Result Performing Organization Address City/[facility]/ZIP Co de Phone Number [facility] [address] [phone] * (ABNORMAL) Glucose, Nova Meter (12/03/2024 1:10 AM EDT) [facility] POC-GLUCOSE 164(H) 70 - 110 mg/dL 12/03/2024 1:12 AM EDT [facility] Comment: In the event of poor peripheral blood flow, venous or arterial blood should be used due to the potential of erroneous results. Protocols Followed Liner Checker [id number] 12/03/2024 1:12 AM EDT [facility] Blood WHOLE BLOOD / Unknown 12/03/2024 1:10 AM EDT 12/03/2024 1:12 AM EDT Narrative [facility] - 12/03/2024 1:12 AM EDT Liner Checker ID is - [id number] us Timothy Bai MD POINT OF CARE TEST ORDERAB LES Final Result Performing Organization Address [facility]/ZIP Co de Phone Number [facility] [address] [phone] * (ABNORMAL) Hemoglobin (12/02/2024 11:06 PM EDT) [facility] Hemoglobin 8.9(L) 11.2 - 15.7 GM/DL 12/02/2024 11:18 PM EDT [facility] Blood Venipuncture / Unknown 12/02/2024 11:06 PM EDT 12/02/2024 11:15 PM EDT us Denilson Hodgson DO LAB BLOOD ORDERABLES Final Res ult [facility] [address] [phone] * (ABNORMAL) Glucose, Nova Meter (12/02/2024 8:06 PM EDT) POC-GLUCOSE 144(H) 70 - 110 mg/dL 12/02/2024 8:08 PM EDT [facility] Comment: In the event of poor peripheral blood flow, venous or arterial blood should be used due to the potential of erroneous results. Protocols Followed Liner Checker [id number] 12/02/2024 8:08 PM EDT [facility] Blood WHOLE BLOOD / Unknown 12/02/2024 8:06 PM EDT 12/02/2024 8:08 PM EDT Narrative [facility] - 12/02/2024 8:08 PM EDT Liner Checker ID is - [id number] Timothy Bai MD POINT OF CARE TEST ORDERAB LES Final Result Performing Organization Address [facility]/ZIP Co de Phone Number [facility] [address] [phone] * (ABNORMAL) Hemoglobin (12/02/2024 6:03 PM EDT) Hemoglobin 9.1(L) 11.2 - 15.7 GM/DL 12/02/2024 6:24 PM EDT [facility] Blood Venipuncture / Unknown 12/02/2024 6:03 PM EDT 12/02/2024 6:19 PM EDT Timothy Bai MD LAB BLOOD ORDERABLES Final Result [facility] [address] [phone] * (ABNORMAL) Glucose, Nova Meter (12/02/2024 5:18 PM EDT) POC-GLUCOSE 128(H) 70 - 110 mg/dL 12/02/2024 5:21 PM EDT [facility] Comment: In the event of poor peripheral blood flow, venous or arterial blood should be used due to the potential of erroneous results. Notified Nurse RBV Liner Checker [id number] 12/02/2024 5:21 PM EDT [facility] Blood WHOLE BLOOD / Unknown 12/02/2024 5:18 PM EDT 12/02/2024 5:20 PM EDT [facility] LABORATORY - 12/02/2024 5:21 PM EDT Liner Checker ID is - [id number] us Timothy Bai MD POINT OF CARE TEST ORDERAB LES Final Result Performing Organization Address City/[facility]/ZIP Co de Phone Number [facility] [address] [phone] * Transfuse RBC (12/02/2024 5:03 PM EDT) Timothy Bai MD FS_MODEL_IP_BLOOD TRANSFUS ION ORDERABLES Final Result * Transfuse RBC: 1 Units (12/02/2024 5:03 PM EDT) us Timothy Bai MD FS_MODEL_IP_BLOOD TRANSFUS ION ORDERABLES Final Result * (ABNORMAL) Glucose, Nova Meter (12/02/2024 12:51 PM EDT) [facility] POC-GLUCOSE 112(H) 70 - 110 mg/dL 12/02/2024 12:53 PM EDT [facility] Comment: In the event of poor peripheral blood flow, venous or arterial blood should be used due to the potential of erroneous results. Notified Nurse RBV Liner Checker [id number] 12/02/2024 12:53 PM EDT [facility] Blood WHOLE BLOOD / Unknown 12/02/2024 12:51 PM EDT 12/02/2024 12:53 PM EDT [facility] LABORATORY - 12/02/2024 12:53 PM EDT Liner Checker ID is - [id number] us Timothy Bai MD POINT OF CARE TEST ORDERAB LES Final Result Performing Organization Address City/[facility]/ZIP Co de Phone Number [facility] [address] [phone] * CT bone marrow biopsy (12/02/2024 12:24 [...] Pancytopenia. ATTENDING RADIOLOGIST: Dr. Haseeb Gil. PHYSICIAN JAVA ENGINEER: Sandra Ramsey PA-C PROCEDURE: After informed consent [...] Pancytopenia. ATTENDING RADIOLOGIST: Dr. Haseeb Gil. PHYSICIAN JAVA ENGINEER: Sandra Ramsey PA-C PROCEDURE: After informed consent [...] Images reviewed, interpreted, and dictated by Dr. Hsaeeb Gil. Transcribed by Sandra Ramsey PA-C. Laura Batista MD [facility] [place]LES Final Result * [facility] BONE MARROW SMEAR, ASPIRATION, AND STAIN (12/02/2024 12:06 PM EDT) AP RESULT See Note: [facility] Comment: [facility] [address] [place] [address] or [phone] Joe Carlos M.D., [employer] PATIENT NAME LABORATORY NO. MARY OLIVA. [id number] [facility] MA[facility] AGE SEX SSN CLIENT REF # [id number] F [id number] [address] [place] [address] REQUESTING Aleksandr ATTENDING Aleksandr. COPY TOLAURA PICHARDO DATE COLLECTED DATE RECEIVED DATE REPORTED 12/02/2024 12/02/2024 12/06/2024 ADDENDUM PRESENT ADDENDUM: Cytogenetics shows a normal female karyotype, 46,XX[20]. The original diagnosis remains unchanged. Verified by Heydi Mak M.D., MPH on 12/13/2024 Professional interpretation rendered by Heydi Mak M.D., MPH at [facility], [address] [place] [address]. DIAGNOSIS: PERIPHERAL SMEAR , BONE MARROW ASPIRATION [...] CD38, CD45, CD56, CD57, CD117, CD123, HLA-DR, [place], and Lambda. These tests use analyte specific [...] rendered by Heydi Mak M.D., MPH at [facility], [address] [place] [address]. GROSS DESCRIPTION: A. Received 1 peripheral blood smear slide for review. B. Received 5 bone marrow aspirate smear slides for review. 4 additional bone marrow aspirate smear slides made at [facility]. C. Received in a purple top [...] BY: Heydi Mak M.D., MPH CPT CODES: [id number], 2FLP, [id number], [id number], [id number], 32285, 13144, [id number] Bone Marrow BONE MARROW STRUCTURE / Unknown 12/02/2024 12:06 PM EDT us Laura Batista MD PATHOLOGY/CYTOLOGY ORDERABLES Edited Result - Final [facility] [address] [place] [address] * Prepare RBC: 1 Units (12/02/2024 9:36 AM EDT) Issue Date/Time [id number] [facility] ([place]) Product Identification Red Blood Cells [facility] [place]) Product Code [id number] [facility] [place]) Status Information Transfused [facility] ([place]) Unit Number [id number] [facility] ([place]) Blood Type 5100 [facility] ([place]) Cross Match Results Compatible [facility] ([place]) us Timothy Bai MD FS_MODEL_IP_BLOOD BANK PRO DUCT ORDERABLES Final Result [facility] ([place]) 1 [place] [address], [facility] [phone] * (ABNORMAL) Hemoglobin and hematocrit (12/02/2024 7:40 AM EDT) Hemoglobin 7.4(L) 11.2 - 15.7 GM/DL 12/02/2024 9:43 AM EDT [facility] Hematocrit 23.4(L) 34.1 - 44.9 % 12/02/2024 9:43 AM EDT [facility] Blood Venipuncture / Unknown 12/02/2024 7:40 AM EDT 12/02/2024 7:47 AM EDT Timothy Bai MD LAB BLOOD ORDERABLES Final Result Performing Organization Address City/[facility] Co de Phone Number [facility] 1 [place] [address], [facility] [phone] * (ABNORMAL) Hemoglobin (12/02/2024 7:40 AM EDT) [facility] Hemoglobin 7.3(L) 11.2 - 15.7 GM/DL 12/02/2024 7:52 AM EDT [facility] Blood Venipuncture / Unknown 12/02/2024 7:40 AM EDT 12/02/2024 7:47 AM EDT iTmothy Bai MD LAB BLOOD ORDERABLES Final Result [facility] 1 [place] [address], [facility] [phone] * (ABNORMAL) Glucose, Nova Meter (12/02/2024 5:04 AM EDT) Pathologist [facility] POC-GLUCOSE 115(H) 70 - 110 mg/dL 12/02/2024 5:06 AM EDT [facility] Comment: In the event of poor peripheral blood flow, venous or arterial blood should be used due to the potential of erroneous results. Notified Nurse RBV Liner Checker [id number] 12/02/2024 5:06 AM EDT [facility] Blood WHOLE BLOOD / Unknown 12/02/2024 5:04 AM EDT 12/02/2024 5:06 AM EDT [facility] LABORATORY - 12/02/2024 5:06 AM EDT Liner Checker ID is - [id number] us Timothy Bai MD POINT OF CARE TEST ORDERAB LES Final Result Performing Organization Address [facility] Co de Phone Number [facility] [address] [phone] * (ABNORMAL) Ammonia (12/02/2024 3:38 AM EDT) Ammonia 74(H) 18 - 72 mol/L 12/02/2024 5:20 AM EDT [facility] Blood Venipuncture / Unknown 12/02/2024 3:38 AM EDT 12/02/2024 4:47 AM EDT [facility] LABORATORY - 12/02/2024 5:20 AM EDT Specimen slightly hemolyzed us Timothy Bai MD LAB BLOOD ORDERABLES Final Result Performing Organization Address [facility] de Phone Number [facility] [address] [phone] * (ABNORMAL) Comprehensive Metabolic Panel (12/02/2024 3:38 AM EDT) Sodium 146(H) 136 - 145 meq/L 12/02/2024 5:30 AM EDT [facility] Potassium 4.2 3.4 - 5.1 meq/L 12/02/2024 5:30 AM EDT [facility] Chloride 118(H) 98 - 112 meq/L 12/02/2024 5:30 AM EDT [facility] CO2 19(L) 22 - 29 meq/L 12/02/2024 5:30 AM EDT [facility] Calcium 7.9(L) 8.4 - 10.2 mg/dL 12/02/2024 5:30 AM [facility] Glucose 107 82 - 115 mg/dL 12/02/2024 5:30 AM [facility] BUN 55.1(H) 9.8 - 20.1 mg/dL 12/02/2024 5:30 AM [facility] Creatinine 3.55(H) 0.57 - 1.11 mg/dL 12/02/2024 5:30 AM [facility] BUN/Creatinine 16 8 - 20 12/02/2024 5:30 AM [facility] eGFR (mL/min/1.73m2) 14(L) >=60 mL/min/1. 73m2 12/02/2024 5:30 AM [facility] Albumin 3.6 3.5 - 5.0 g/dL 12/02/2024 5:30 AM [facility] Alkaline Phosphatase 49 40 - 150 U/L 12/02/2024 5:30 AM [facility] ALT 8 <=34 U/L 12/02/2024 5:30 AM [facility] Comment: ALT2 reagent used for testing does not contain P5P supplementation and therefore may miss ALT elevations in patients with B6 deficiency. This population may be as high as 10% in the [place], with risk factors including malabsorption, drug interactions, and alcoholic hepatitis. AST 32 11 - 34 U/L 12/02/2024 5:30 AM [facility] Comment: AST2 reagent used for testing does not contain P5P supplementation and therefore may miss AST elevations in patients with B6 deficiency. This population may be as high as 10% in the [place], with risk factors including malabsorption, drug interactions, and alcoholic hepatitis. Total Bilirubin 0.9 0.2 - 1.2 mg/dL 12/02/2024 5:30 AM [facility] Protein, Total 6.1(L) 6.4 - 8.3 g/dL 12/02/2024 5:30 AM [facility] Globulin 2.5 2.5 - 4.1 g/dL 12/02/2024 5:30 AM [facility] Anion Gap 13(H) 4 - 12 12/02/2024 5:30 AM EDT [facility] A/G Ratio 1.4 0.7 - 1.9 12/02/2024 5:30 AM EDT [facility] Osmolality Calc 306.2 mOsm/kg 5:30 AM EDT [facility] Blood Venipuncture / Unknown 12/02/2024 3:38 AM EDT 12/02/2024 4:48 AM EDT Narrative [facility] - 12/02/2024 5:30 AM EDT Specimen slightly hemolyzed Timothy Bai MD LAB BLOOD ORDERABLES Final Result [facility] [address] [phone] * Magnesium (12/02/2024 3:38 AM EDT) Magnesium 2.5 1.6 - 2.6 mg/dL 12/02/2024 5:30 AM EDT [facility] Blood Venipuncture / Unknown 12/02/2024 3:38 AM EDT 12/02/2024 4:48 AM EDT Narrative [facility] - 12/02/2024 5:30 AM EDT Specimen slightly hemolyzed Timothy Bai MD LAB BLOOD ORDERABLES Final Result [facility] [address] [phone] * (ABNORMAL) CBC - Hemogram (SJ-BKR) (12/02/2024 3:38 AM EDT) WBC 3.0(L) 4.0 - 10.0 K/ L 12/02/2024 5:08 AM EDT [facility] RBC 2.43(L) 3.93 - 5.22 M/ L 12/02/2024 5:08 AM EDT [facility] Hemoglobin 7.6(L) 11.2 - 15.7 GM/DL 12/02/2024 5:08 AM EDT [facility] Hematocrit 24.2(L) 34.1 - 44.9 % 12/02/2024 5:08 AM EDT [facility] MCV 100(H) 79 - 95 fL 12/02/2024 5:08 AM EDT [facility] MCH 31.3 25.6 - 32.2 pg 12/02/2024 5:08 AM EDT [facility] MCHC 31.4(L) 32.2 - 35.5 GM/DL 12/02/2024 5:08 AM EDT [facility] RDW 17.1(H) 11.7 - 14.4 % 12/02/2024 5:08 AM EDT [facility] Platelets 57(L) 140 - 375 K/CU MM 12/02/2024 5:08 AM EDT [facility] MPV 10.5 9.4 - 12.3 fL 12/02/2024 5:08 AM EDT [facility] Blood Venipuncture / Unknown 12/02/2024 3:38 AM EDT 12/02/2024 4:47 AM EDT us Timothy Bai MD LAB BLOOD ORDERABLES Final Result [facility] [address] [phone] * (ABNORMAL) Hemoglobin (12/02/2024 12:04 AM EDT) Hemoglobin 7.7(L) 11.2 - 15.7 GM/DL 12/02/2024 12:18 AM EDT [facility] Blood Venipuncture / Unknown 12/02/2024 12:04 AM EDT 12/02/2024 12:16 AM EDT Timothy Bai MD LAB BLOOD ORDERABLES Final Result [facility] [address] [phone] * (ABNORMAL) Glucose, Nova Meter (12/01/2024 7:34 PM EDT) POC-GLUCOSE 128(H) 70 - 110 mg/dL 12/01/2024 7:35 PM EDT [facility] Comment: In the event of poor peripheral blood flow, venous or arterial blood should be used due to the potential of erroneous results. Notified Nurse RBV Liner Checker [id number] 12/01/2024 7:35 PM EDT [facility] Blood WHOLE BLOOD / Unknown 12/01/2024 7:34 PM EDT 12/01/2024 7:35 PM EDT [facility] LABORATORY - 12/01/2024 7:35 PM EDT Liner Checker ID is - [id number] us Timothy Bai MD POINT OF CARE TEST ORDERAB LES Final Result Performing Organization Address [facility] Co de Phone Number [facility] [address] [phone] * (ABNORMAL) Glucose, Nova Meter (12/01/2024 4:25 PM EDT) [facility] POC-GLUCOSE 115(H) 70 - 110 mg/dL 12/01/2024 4:26 PM EDT [facility] Comment: In the event of poor peripheral blood flow, venous or arterial blood should be used due to the potential of erroneous results. Notified Nurse RBV Liner Checker [id number] 12/01/2024 4:26 PM EDT [facility] Blood WHOLE BLOOD / Unknown 12/01/2024 4:25 PM EDT 12/01/2024 4:26 PM EDT [facility] LABORATORY - 12/01/2024 4:26 PM EDT Liner Checker ID is - [id number] us Timothy Bai MD POINT OF CARE TEST ORDERAB LES Final Result Performing Organization Address [facility] Co de Phone Number [facility] [address] [phone] * (ABNORMAL) Hemoglobin (12/01/2024 3:33 PM EDT) Hemoglobin 8.0(L) 11.2 - 15.7 GM/DL 12/01/2024 4:03 PM EDT [facility] Blood Venipuncture / Unknown 12/01/2024 3:33 PM EDT 12/01/2024 4:00 PM EDT us Timothy Bai MD LAB BLOOD ORDERABLES Final Result [facility] [address] [phone] * Glucose, Nova Meter (12/01/2024 10:32 AM EDT) Pathologist [facility] POC-GLUCOSE 100 70 - 110 mg/dL 12/01/2024 10:33 AM EDT [facility] Comment: In the event of poor peripheral blood flow, venous or arterial blood should be used due to the potential of erroneous results. Notified Nurse RBV Liner Checker [id number] 12/01/2024 10:33 AM EDT [facility] Blood WHOLE BLOOD / Unknown 12/01/2024 10:32 AM EDT 12/01/2024 10:33 AM EDT Narrative [facility] - 12/01/2024 10:33 AM EDT Liner Checker ID is - [id number] us Timothy Bai MD POINT OF CARE TEST ORDERAB LES Final Result [facility] [address] [phone] * Transfuse RBC (12/01/2024 9:18 AM EDT) us Denilson Hodgson DO FS_MODEL_IP_BLOOD TRANSFUSION ORDERABLES Final Result * Transfuse RBC: 1 Units (12/01/2024 9:18 AM EDT) us Denilson Hodgson DO FS_MODEL_IP_BLOOD TRANSFUSION ORDERABLES Final Result * Glucose, Nova Meter (12/01/2024 8:12 AM EDT) Pathologist [facility] POC-GLUCOSE 103 70 - 110 mg/dL 12/01/2024 8:14 AM EDT [facility] Comment: In the event of poor peripheral blood flow, venous or arterial blood should be used due to the potential of erroneous results. Protocols Followed Liner Checker [id number] 12/01/2024 8:14 AM EDT [facility] Blood WHOLE BLOOD / Unknown 12/01/2024 8:12 AM EDT 12/01/2024 8:14 AM EDT Narrative [facility] - 12/01/2024 8:14 AM EDT Liner Checker ID is - [id number] us Timothy Bai MD POINT OF CARE TEST ORDERAB LES Final Result [facility] [address] [place] [address] * Type and Screen (12/01/2024 7:08 AM EDT) Pathologist [facility] ABO/Rh O Positive 12/01/2024 4:53 AM EDT [facility] ([place]) Antibody Screen Negative 12/01/2024 4:53 AM EDT [facility] ([place]) HISTCHK HIST CHECK PERFORMED 12/01/2024 4:53 AM EDT [facility] ([place]) Blood Venipuncture / Unknown 12/01/2024 7:08 AM EDT 12/01/2024 7:15 AM EDT us Denilson Hodgson DO [facility] TEST ORDERABLES Final Result [facility] ([place]) [address] [place] [address], [facility] [phone] * Glucose, Nova Meter (12/01/2024 5:37 AM EDT) POC-GLUCOSE 107 70 - 110 mg/dL 12/01/2024 5:39 AM EDT [facility] Comment: In the event of poor peripheral blood flow, venous or arterial blood should be used due to the potential of erroneous results. Notified Nurse RBV Liner Checker [id number] 12/01/2024 5:39 AM EDT [facility] Blood WHOLE BLOOD / Unknown 12/01/2024 5:37 AM EDT 12/01/2024 5:39 AM EDT Narrative [facility] - 12/01/2024 5:39 AM EDT Liner Checker ID is - [id number] us Timothy Bai MD POINT OF CARE TEST ORDERAB LES Final Result Performing Organization Address City/[facility]/ZIP Co de Phone Number [facility] 1 [place] [address], [facility] [phone] * Prepare RBC: 1 Units (12/01/2024 4:53 AM EDT) Issue Date/Time [id number] [facility] ([place]) Product Identification Red Blood Cells [facility] [place]) Product Code [id number] [facility] [place]) Status Information Transfused [facility] ([place]) Unit Number [id number] [facility] ([place] Blood Type 5100 [facility] ([place] Cross Match Results Compatible [facility] ([place]) us Denilson Hodgson DO FS_MODEL_IP_BLOOD BANK PRODUCT ORDERABLES Final Result [facility] ([place]) 1 [place] [address], [facility] [phone] * ABO/RH Confirmation/Retype (12/01/2024 4:06 AM EDT) RETYPE O Positive 12/01/2024 5:15 AM EDT [facility] ([place]) Comment:[id number] Blood Venipuncture / Unknown 12/01/2024 4:06 AM EDT 12/01/2024 5:14 AM EDT Timothy Bai MD [facility] TEST ORDERA BLES Final Result Performing Organization Address [facility]/ZIP Co de Phone Number [facility] ([place]) 1 [place] [address], [facility] [phone] * (ABNORMAL) Ammonia (12/01/2024 4:06 AM EDT) Ammonia 75(H) 18 - 72 mol/L 12/01/2024 4:49 AM EDT [facility] Blood Venipuncture / Unknown 12/01/2024 4:06 AM EDT 12/01/2024 4:13 AM EDT Timothy Bai MD LAB BLOOD ORDERABLES Final Result Performing Organization Address City/[facility]/ZIP Co de Phone Number [facility] [address] [place] [address] * (ABNORMAL) CBC - Hemogram (SJ-BKR) (12/01/2024 4:06 AM EDT) WBC 1.7(LL) 4.0 - 10.0 K/ L 12/01/2024 4:43 AM EDT [facility] RBC 2.15(L) 3.93 - 5.22 M/ L 12/01/2024 4:43 AM EDT [facility] Hemoglobin 6.7(L) 11.2 - 15.7 GM/DL 12/01/2024 4:43 AM EDT [facility] Hematocrit 21.6(L) 34.1 - 44.9 % 12/01/2024 4:43 AM EDT [facility] MCV 101(H) 79 - 95 fL 12/01/2024 4:43 AM EDT [facility] MCH 31.2 25.6 - 32.2 pg 12/01/2024 4:43 AM EDT [facility] MCHC 31.0(L) 32.2 - 35.5 GM/DL 12/01/2024 4:43 AM EDT [facility] RDW 16.2(H) 11.7 - 14.4 % 12/01/2024 4:43 AM EDT [facility] Platelets 54(L) 140 - 375 K/CU MM 12/01/2024 4:43 AM EDT [facility] MPV 10.6 9.4 - 12.3 fL 12/01/2024 4:43 AM EDT [facility] Blood Venipuncture / Unknown 12/01/2024 4:06 AM EDT 12/01/2024 4:12 AM EDT us Timothy Bai MD LAB BLOOD ORDERABLES Final Result Performing Organization Address City/State/[facility] Co de Phone Number [facility] [address] [place] [address] * (ABNORMAL) Comprehensive Metabolic Panel (12/01/2024 4:05 AM EDT) Sodium 145 136 - 145 meq/L 12/01/2024 5:01 AM EDT [facility] Potassium 4.2 3.4 - 5.1 meq/L 12/01/2024 5:01 AM EDT [facility] Chloride 116(H) 98 - 112 meq/L 12/01/2024 5:01 AM EDT [facility] CO2 20(L) 22 - 29 meq/L 12/01/2024 5:01 AM EDT [facility] Calcium 8.0(L) 8.4 - 10.2 mg/dL 12/01/2024 5:01 AM EDT [facility] Glucose 120(H) 82 - 115 mg/dL 12/01/2024 5:01 AM EDT [facility] BUN 68.3(H) 9.8 - 20.1 mg/dL 12/01/2024 5:01 AM EDT [facility] Creatinine 4.13(H) 0.57 - 1.11 mg/dL 12/01/2024 5:01 AM [facility] BUN/Creatinine 17 8 - 20 12/01/2024 5:01 AM [facility] eGFR (mL/min/1.73m2) 12(L) >=60 mL/min/1. 73m2 12/01/2024 5:01 AM [facility] Albumin 2.8(L) 3.5 - 5.0 g/dL 12/01/2024 5:01 AM [facility] Alkaline Phosphatase 61 40 - 150 U/L 12/01/2024 5:01 AM [facility] ALT 15 <=34 U/L 12/01/2024 5:01 AM [facility] Comment: ALT2 reagent used for testing does not contain P5P supplementation and therefore may miss ALT elevations in patients with B6 deficiency. This population may be as high as 10% in the [place], with risk factors including malabsorption, drug interactions, and alcoholic hepatitis. AST 26 11 - 34 U/L 12/01/2024 5:01 AM [facility] Comment: AST2 reagent used for testing does not contain P5P supplementation and therefore may miss AST elevations in patients with B6 deficiency. This population may be as high as 10% in the [place], with risk factors including malabsorption, drug interactions, and alcoholic hepatitis. Total Bilirubin 0.5 0.2 - 1.2 mg/dL 12/01/2024 5:01 AM [facility] Protein, Total 5.7(L) 6.4 - 8.3 g/dL 12/01/2024 5:01 AM [facility] Globulin 2.9 2.5 - 4.1 g/dL 12/01/2024 5:01 AM [facility] Anion Gap 13(H) 4 - 12 12/01/2024 5:01 AM [facility] A/G Ratio 1.0 0.7 - 1.9 12/01/2024 5:01 AM [facility] Osmolality Calc 309.8 mOsm/kg 5:01 AM [facility] Blood Venipuncture / Unknown 12/01/2024 4:05 AM EDT 12/01/2024 4:13 AM EDT Timothy Bai MD LAB BLOOD ORDERABLES Final Result Performing Organization Address City/[facility]/ZIP Co de Phone Number [facility] [address] [phone] * (ABNORMAL) Magnesium (12/01/2024 4:05 AM EDT) Pathologist [facility] Magnesium 2.7(H) 1.6 - 2.6 mg/dL 12/01/2024 4:57 AM EDT [facility] Blood Venipuncture / Unknown 12/01/2024 4:05 AM EDT 12/01/2024 4:13 AM EDT Timothy Bai MD LAB BLOOD ORDERABLES Final Result Performing Organization Address [facility] Phone Number [facility] [address] [phone] * Glucose, Nova Meter (11/30/2024 7:38 PM EDT) [facility] POC-GLUCOSE 106 70 - 110 mg/dL 11/30/2024 7:39 PM EDT [facility] Comment: In the event of poor peripheral blood flow, venous or arterial blood should be used due to the potential of erroneous results. Notified Nurse [facility]BV Liner Checker [id number] 11/30/2024 7:39 PM EDT [facility] Blood WHOLE BLOOD / Unknown 11/30/2024 7:38 PM EDT 11/30/2024 7:39 PM EDT Narrative [facility] - 11/30/2024 7:39 PM EDT Liner Checker ID is - [id number] us Timothy Bai MD POINT OF CARE TEST ORDERAB LES Final Result Performing Organization Address [facility] Co de Phone Number [facility] [address] [phone] * Glucose, Nova Meter (11/30/2024 6:22 PM EDT) POC-GLUCOSE 107 70 - 110 mg/dL 11/30/2024 6:25 PM EDT [facility] Comment:In the event of poor peripheral blood flow, venous or arterial blood should be used due to the potential of erroneous results. Liner Checker [id number] 11/30/2024 6:25 PM EDT [facility] Blood WHOLE BLOOD / Unknown 11/30/2024 6:22 PM EDT 11/30/2024 6:25 PM EDT Narrative [facility] - 11/30/2024 6:25 PM EDT Liner Checker ID is - [id number] us Timothy Bai MD POINT OF CARE TEST ORDERAB LES Final Result [facility] [address] [phone] * Ultrasound renal limited (11/30/2024 4:19 PM [...] dictated by SABINE Yang. us Destiney Llanes PROCESSING ENGINEER IMG US ORDERABLES Final Res ult * [...] Ascites ATTENDING PHYSICIAN: Dr. Haseeb Gil PHYSICIAN JAVA ENGINEER: Gabriel Velasco PA-C FINDINGS: After informed consent [...] Ascites ATTENDING PHYSICIAN: Dr. Haseeb Gil PHYSICIAN JAVA ENGINEER: Gabriel Velasco PA-C FINDINGS: After informed consent [...] See Comment g/dL 12/01/2024 7:10 AM EDT [facility] BODY FLUID TYPE Peritoneal 12/01/2024 7:10 AM EDT [facility] Body Fluid PERITONEAL FLUID / Unknown 11/30/2024 4:03 PM EDT 12/01/2024 6:52 AM EDT Narrative [facility] - 12/01/2024 7:10 AM EDT This test has been modified from the curtain hemmer automatic's instructions and its performance characteristics were determined by the laboratory. The reference intervals and other method performance specifications are unavailable for this test. It is recommended to interpret body fluid concentrations in comparison with the corresponding serum or plasma concentrations and to integrate test results into the clinical context. us Timothy Bai MD BODY FLUIDS AND STOOLS ORD ERABLES Final Result [facility] [address] [phone] * Glucose, body fluid (11/30/2024 4:03 PM EDT) Glucose, Body Fluid 107 See Comment mg/dL 12/01/2024 7:10 AM EDT [facility] BODY FLUID TYPE Peritoneal 12/01/2024 7:10 AM EDT [facility] Body Fluid PERITONEAL FLUID / Unknown 11/30/2024 4:03 PM EDT 12/01/2024 6:52 AM EDT Narrative [facility] - 12/01/2024 7:10 AM EDT This test has been modified from the curtain hemmer automatic's instructions and its performance characteristics were determined [...] ORD ERABLES Final Result Performing Organization Address City/[facility]/ZIP Co de Phone Number [facility] [address] [place] [address] * Body Fluid/CSF - Path Review (SJ) (11/30/2024 4:03 PM EDT) SENT TO PATHOLOGY FOR REVIEW Yes 12/03/2024 6:54 AM EDT [facility] Scan Result Mesothelial cells. MD German 12/02/2024 12/03/2024 6:54 AM EDT [facility] Peritoneal Fluid BODY FLUID / Unknown 11/30/2024 4:03 PM EDT 11/30/2024 4:33 PM EDT us Huey Hurtado MD BODY FLUIDS AND STOOLS ORDERABLE S Final Result [facility] [address] [phone] * DIFFERENTIAL, BODY FLUID (11/30/2024 4:03 PM EDT) Neutrophils Fluid 5 0 - 25 % 025 8:49 PM EDT [facility] Lymphocytes Fluid 46 % 025 8:49 PM EDT [facility] Unidentified Mononuclear Cells BF 49 0 - 0 % 11/30/2024 8:49 PM EDT [facility] Peritoneal Fluid BODY FLUID / Unknown 11/30/2024 4:03 PM EDT 11/30/2024 4:33 PM EDT us Huey Hurtado MD BODY FLUIDS AND STOOLS ORDERABLE S Final Result [facility] [address] [phone] * [facility] Non-Ointment Mill Tender Cytology (11/30/2024 4:03 PM EDT) AP RESULT See Note: [facility] Comment: [facility] [address] [place] [address] or [phone] Joe Carlos M.D., Guard Immigration PATIENT NAME LABORATORY NO. 170MARY PETERSEN. [id number] AGE SEX SSN CLIENT REF # [facility] 64 1960 F [id number] 1 [facility] REQUESTING Aleksandr ATTENDING Aleksandr. [place] [address] HUEY HURTADO DATE COLLECTED DATE RECEIVED DATE REPORTED 11/30/2024 12/01/2024 12/02/2024 DIAGNOSIS: PERITONEAL FLUID: Negative for malignant cells. MICROSCOPIC DESCRIPTION: Scattered mesothelial cells and chronic inflammatory cells are present. Professional interpretation rendered by John Sanchez M.D., F.C.A.P. at [employer], [address] [place] [address]. CLINICAL HISTORY: Melena Anasarca Acute renal failure SPECIMENS SUBMITTED: PERITONEAL FLUID GROSS SPECIMEN DESCRIPTION: 40 ccs of hazy, light yellow fluid, scant sediment, received in fixative ThinPrep slides prepared. Cell block has been examined. LOGISTICIAN: SVITLANA HERNANDEZ (ASCP) REVIEWED, DIAGNOSED AND ELECTRONICALLY SIGNED BY: John Sanchez M.D., F.C.A.P. CPT CODES: 59995, 13834 Peritoneal Fluid BODY FLUID / Unknown 11/30/2024 4:03 PM EDT us Huey Hurtado MD PATHOLOGY/CYTOLOGY ORDERABLES Fi nal Result [facility] [address] * Anaerobic Culture (11/30/2024 4:03 PM EDT) Result No Anaerobic growth 12/05/2024 6:34 AM EDT [facility] Peritoneal Fluid BODY FLUID / Unknown 11/30/2024 4:03 PM EDT 11/30/2024 4:34 PM EDT Narrative [facility] - 12/05/2024 6:34 AM EDT Specimen Description: peritoneal fluid us Huey Hurtado MD MICROBIOLOGY - GENERAL ORDERABLE S Final Result Performing Organization Address City/[facility]/ZIP Co de Phone Number [facility] [address] [phone] * Body Fluid Culture + Gram Stain (11/30/2024 4:03 PM EDT) Result No growth 12/03/2024 9:07 AM EDT [facility] Gram Stain Result No organisms seen 12/03/2024 9:07 AM EDT [facility] Gram Stain Result No cells seen 12/03/2024 9:07 AM EDT [facility] Peritoneal Fluid BODY FLUID / Unknown 11/30/2024 4:03 PM EDT 11/30/2024 4:34 PM EDT Narrative [facility] - 12/03/2024 9:07 AM EDT Specimen Description: peritoneal fluid Result Archana Hurtado MD MICROBIOLOGY - GENERAL ORDERABLE S Final Result Performing Organization Address [facility]/ZIP Co de Phone Number [facility] [address] [phone] * (ABNORMAL) Body fluid cell count with differential (11/30/2024 4:03 PM EDT) Appearance Cloudy(A) Clear 11/30/2024 8:49 PM EDT [facility] Color Yellow 11/30/2024 8:49 PM EDT [facility] BODY FLUID TYPE Peritoneal 11/30/2024 8:49 PM EDT [facility] Auto WBC/Nucleated Cells BF 85 /uL 11/30/2024 8:49 PM EDT [facility] Comment: Please refer to specific WBC/Nucleated Cell Count Body Fluid reference ranges below: For Pleural: 0-1000 Peritoneal: 0-1000 Pericardial:0-1000 Synovial: 0-200 Auto RBC BF <3,000 /uL 11/30/2024 8:49 PM EDT [facility] Comment: Please refer to specific RBC Cell Count Body Fluid reference ranges below: Pleural: 0-10,000 Peritoneal: 0-10,000 Pericardial:0-10,000 Synovial:0-30 Peritoneal Fluid BODY FLUID / Unknown 11/30/2024 4:03 PM EDT 11/30/2024 4:33 PM EDT Narrative [facility] - 11/30/2024 8:49 PM EDT There is normally no readily obtainable pleural, peritoneal and pericardial fluid, hence normal elements for these potential fluids are not defined. Huey Hurtado MD BODY FLUIDS AND STOOLS ORDERABLE S Final Result [facility] [address] [place] [address] * Lactate dehydrogenase (LDH), body fluid (11/30/2024 4:03 PM EDT) LDH, Fluid 71 See Comment U/L 11/30/2024 6:19 PM EDT [facility] BODY FLUID TYPE Peritoneal 11/30/2024 6:19 PM EDT [facility] Peritoneal Fluid BODY FLUID / Unknown 11/30/2024 4:03 PM EDT 11/30/2024 4:33 PM EDT Narrative [facility] - 11/30/2024 6:19 PM EDT This test has been modified from the curtain hemmer automatic's instructions and its performance characteristics were determined [...] ORDERABLE S Final Result Performing Organization Address [facility] de Phone Number [facility] [address] [phone] * Protein / creatinine ratio, urine (11/30/2024 11:35 AM EDT) Creatinine, Ur 62.00 47.00 - 110.00 mg/dL 11/30/2024 12:36 PM EDT [facility] Protein Creatinine Ratio 0.19 <=0.20 11/30/2024 12:36 PM EDT [facility] Protein, Urine 12 1 - 14 mg/dL 11/30/2024 12:36 PM EDT [facility] Urine 11/30/2024 11:3 5 AM EDT 11/30/2024 12:15 PM EDT us Hill Boo MD URINE ORDERABLES Final Result Performing Organization Address [facility] Phone Number [facility] [address] [phone] * Urea Nitrogen, random urine (11/30/2024 11:35 AM EDT) Urea Nitrogen, Ur 305 mg/dL 11/30/2024 12:36 PM EDT [facility] Comment:Reference Range not established Urine 11/30/2024 11:3 5 AM EDT 11/30/2024 12:15 PM EDT us Hill Boo MD URINE ORDERABLES Final Result [facility] [address] [phone] * Sodium, random urine (11/30/2024 11:35 AM EDT) Sodium Urine 83 See Comment meq/L 11/30/2024 12:36 PM EDT [facility] Comment:Reference Range not established Urine 11/30/2024 11:3 5 AM EDT 11/30/2024 12:15 PM EDT us Hill Boo MD URINE ORDERABLES Final Result Performing Organization Address [facility] Co de Phone Number [facility] [address] [phone] * (ABNORMAL) Urinalysis Microscopic Only (11/30/2024 11:35 AM EDT) WBC, UA 21-50(A) None Seen /HPF 11/30/2024 12:06 PM EDT [facility] RBC, UA 0-2(A) None Seen /HPF 11/30/2024 12:06 PM EDT [facility] Bacteria, UA 1+(A) None Seen, Trace 11/30/2024 12:06 PM EDT [facility] Mucus 1+(A) None Seen 11/30/2024 12:06 PM EDT [facility] SQUAMOUS EPITHELIAL 3-5(A) None Seen /HPF 11/30/2024 12:06 PM EDT [facility] HYALINE CASTS 21-50(A) None Seen /LPF 11/30/2024 12:06 PM EDT [facility] Urine URINE SPECIMEN COLLECTION, CLEAN CATCH / Unknown 11/30/2024 11:35 AM EDT 11/30/2024 11:41 AM EDT us Destiney Llanes APRN URINE ORDERABLES Final Resu lt Performing Organization Address [facility]/ZIP Co de Phone Number [facility] [address] [phone] * Urine Culture (11/30/2024 11:35 AM EDT) Result Recollect Specimen - 3 or more organisms suggests contamination 12/01/2024 6:49 AM EDT [facility] Urine URINE SPECIMEN COLLECTION, CLEAN CATCH / Unknown 11/30/2024 11:35 AM EDT 11/30/2024 11:41 AM EDT Destiney Llanes PROCESSING ENGINEER MICROBIOLOGY - GENERAL ORDE YAKELIN Final Result [facility] 1 [place] [address], [facility] [phone] * (ABNORMAL) Urinalysis, Reflex Microscopic and Culture If Indicated (11/30/2024 11:35 AM EDT) Color, UA Light Yellow 11/30/2024 12:06 PM EDT [facility] Clarity, UA Turbid(A) Clear 11/30/2024 12:06 PM EDT [facility] Specific [place], UA 1.011 1.005 - 1.030 11/30/2024 12:06 PM EDT [facility] pH, UA 5.0(L) 6.0 - 8.0 11/30/2024 12:06 PM EDT [facility] Leukocytes, UA 500 Félix/uL(A) Negative 11/30/2024 12:06 PM EDT [facility] Nitrite, UA Negative Negative 11/30/2024 12:06 PM EDT [facility] Protein, UA Negative Negative 11/30/2024 12:06 PM EDT [facility] Glucose, UA Normal Normal 11/30/2024 12:06 PM EDT [facility] Ketones, UA Negative Negative 11/30/2024 12:06 PM EDT [facility] Bilirubin, UA Negative Negative 11/30/2024 12:06 PM EDT [facility] Blood, UA Negative Negative 11/30/2024 12:06 PM EDT [facility] Urobilinogen, UA Normal Normal 11/30/2024 12:06 PM EDT [facility] Specimen Source Urine, Clean Catch 11/30/2024 12:06 PM EDT [facility] Urine URINE SPECIMEN COLLECTION, CLEAN CATCH / Unknown 11/30/2024 11:35 AM EDT 11/30/2024 11:41 AM EDT Destiney Llanes APRN URINE ORDERABLES Final Resu lt [facility] [address] [phone] * XR chest AP portable (11/30/2024 11:29 [...] Destiney Llanes APRN IMG DIAGNOSTIC IMAGING ORDE RABLES Final Result * (ABNORMAL) Monoclonal Protein Study, Expanded Panel(SENDOUT) (11/30/2024 11:01 AM EDT) [facility] Total Protein, Serum 6.2(L) 6.3 - 8.2 g/dL 12/03/2024 12:57 PM EDT [facility] Albumin 2.71(L) 3.75 - 5.01 g/dL 12/03/2024 12:57 PM EDT [facility] Alpha 1 Globulin 0.34 0.19 - 0.46 g/dL 12/03/2024 12:57 PM EDT [facility] Alpha 2 Globulin 0.38(L) 0.48 - 1.05 g/dL 12/03/2024 12:57 PM EDT [facility] Beta Globulin 1.30(H) 0.48 - 1.10 g/dL 12/03/2024 12:57 PM EDT [facility] Gamma 1.47 0.62 - 1.51 g/dL 12/03/2024 12:57 PM EDT [facility] Immunofixation MAEGAN Done 12/03/2024 12:57 PM EDT [facility] Immunoglobulin G 1484 768 - 1632 mg/dL 12/03/2024 12:57 PM EDT [facility] Immunoglobulin A 686(H) 68 - 408 mg/dL 12/03/2024 12:57 PM EDT [facility] Immunoglobulin M 126 35 - 263 mg/dL 12/03/2024 12:57 PM EDT [facility] Monoclonal Protein Not Applicable <=0.00 g/dL 12/03/2024 12:57 PM EDT [facility] [place] Qnt Free Light Chains 173.10(H) 3.30 - 19.40 mg/L 12/03/2024 12:57 PM EDT [facility] Comment: INTERPRETIVE INFORMATION: [place] Qnt Free Light Chains Undetected antigen excess is a rare event but cannot be excluded. Free light chain results should always be interpreted in conjunction with other clinical and laboratory findings. [place] Qnt Free Light Chains 123.84(H) 5.71 - 26.30 mg/L 12/03/2024 12:57 PM EDT [facility] Comment: INTERPRETIVE INFORMATION: [place] Qnt Free Light Chains Undetected antigen excess is a rare event but cannot be excluded. Free light chain results should always be interpreted in conjunction with other clinical and laboratory findings. [place]/Lambda Free Light Chain Ratio 1.40 0.26 - 1.65 12/03/2024 12:57 PM EDT [employer] SPEP/MAEGAN Interpretation See Note 12/03/2024 12:57 PM EDT [employer] Comment: Restricted band in the beta region [...] Serum See Note 12/03/2024 12:57 PM EDT [employer] Comment: Authorized individuals can access the [employer] Enhanced Report with an [employer] Connect account using the following link. Your local lab can assist you in obtaining the patient report if you don't have a Connect account. [email or web address] Performed By: [facility] [address] [place] [address] Sr Risk Management Consultant: Lalo Mortensen MD, PhD CLIA Number: [id number] Blood Venipuncture / Unknown 11/30/2024 11:01 AM EDT 11/30/2024 12:17 PM EDT Hill Boo MD LAB BLOOD ORDERABLES Final Resu lt [facility] [address] [place] [address], [facility] [phone] * Alpha Fetoprotein Tumor Marker(SENDOUT) (11/30/2024 11:01 AM EDT) Alpha Fetoprotein Tumor Marker 2 0 - 9 ng/mL 12/01/2024 3:41 PM EDT [employer] Comment: INTERPRETIVE INFORMATION: Alpha Fetoprotein Tumor Marker The Stefany Patterson Access DxI AFP method is used. Results [...] reference intervals for this test in the [facility] Laboratory Test Directory ([employer]ous). Performed By: [facility] [address] [place] [address] Sr Risk Management Consultant: Lalo Mortensen MD, PhD CLIA Number: [id number] Blood Venipuncture / Unknown 11/30/2024 11:01 AM EDT 11/30/2024 11:06 AM EDT us Destiney Llanes PROCESSING ENGINEER LAB BLOOD ORDERABLES Final Result [facility] [email or web address] [address] [place] [address] * Glucose, Nova Meter (11/30/2024 10:46 AM EDT) [facility] POC-GLUCOSE 102 70 - 110 mg/dL 11/30/2024 10:47 AM EDT [facility] Comment: In the event of poor peripheral blood flow, venous or arterial blood should be used due to the potential of erroneous results. Notified Nurse RBV Liner Checker [id number] 11/30/2024 10:47 AM EDT [facility] Blood WHOLE BLOOD / Unknown 11/30/2024 10:46 AM EDT 11/30/2024 10:47 AM EDT Narrative [facility] - 11/30/2024 10:47 AM EDT Liner Checker ID is - [id number] us Timothy Bai MD POINT OF CARE TEST ORDERAB LES Final Result [facility] [address] [phone] * (ABNORMAL) Vitamin D, 25-Hydroxy (11/30/2024 8:20 AM EDT) Vitamin D 25-Hydroxy 22.0(L) 30 - 80 ng/mL 11/30/2024 9:48 AM EDT [facility] Blood Venipuncture / Unknown 11/30/2024 8:20 AM EDT 11/30/2024 9:08 AM EDT Timothy Bai MD LAB BLOOD ORDERABLES Final Result [facility] [address] [phone] * Hemoglobin A1c (11/30/2024 8:20 AM EDT) Hemoglobin A1C 4.9 4.0 - 5.6 % 11/30/2024 9:17 AM EDT [facility] Comment: Hemoglobin A1C levels are related to mean glucose during the preceding 2-3 months. Less than 7% demonstrates glycemic control in diabetic patients. Hemoglobin AlC % Suggested Diagnosis > or = 6.5 Diabetic 5.7 - 6.4 Prediabetic <5.7 Non-diabetic eAVG Glucose 93.93 70 - 126 mg/dL 11/30/2024 9:17 AM EDT [facility] Blood Venipuncture / Unknown 11/30/2024 8:20 AM EDT 11/30/2024 9:07 AM EDT Huey Hurtado MD LAB BLOOD ORDERABLES Final Resul t [facility] [address] [phone] * ECHO COMPLETE (DOPPLER / COLOR) WO CONTRAST (11/30/2024 7:50 AM EDT) Anatomical Region Laterality Modality Heart Vascular Ultraso und 11/30/2024 7:25 AM EDT Narrative 11/30/2024 10:46 AM EDT TRANSTHORACIC ECHOCARDIOGRAPHY REPORT Demographics Patient Name: RIN JONES : 1960 Age: 64 year(s) Corporate ID Number: [id number] Gender Female Order Processing Clerk: Giovanna Rock Height: 67 inches [facility] Referring Physician: HUEY HURTADO Weight: 225 pounds Interpreting JESSICA RAYMOND MD BMI: 35.24 kg/m^2 Physician: Date of Service: 11/30/2024 Blood Pressure: 118/59 mmHg Room Number: 579 Type of Study: TTE procedure: ECHO COMPLETE (DOPPLER / COLOR) W OR WO CONTRAST. Patient Status: Routine [facility]quate [facility] History/Tech Notes: Indication: shortness [...] .99 LV length: 8.51 cm ml Volume .96 [...] Valve TR velocity: 2.51 m/s TR gradient: 25.57725 mmHg Estimated RAP: 3 mmHg RVSP: 28.12 [...] 1960 Age: 64 year(s) Corporate ID Number: [id number] Gender Female Order Processing Clerk: Giovanna Rock Height: 67 inches [facility] Referring Physician: HUEY HURTADO Weight: 225 pounds Interpreting JESSICA RAYMOND MD BMI: 35.24 kg/m^2 Physician: Date of Service: 11/30/2024 Blood Pressure: 118/59 mmHg Room Number: 579 Type of Study: TTE procedure: ECHO COMPLETE (DOPPLER / COLOR) W OR WO CONTRAST. Patient Status: Routine IP Study Location: [facility] Quality: Adequate visualization History/Tech Notes: [...] .99 LV length: 8.51 cm ml Volume [id number] ml LVOT diameter: 1.79 cm Normal sized [...] Valve TR velocity: 2.51 m/s TR gradient: 25.13635 mmHg Estimated RAP: 3 mmHg RVSP: 28.12 [...] - 110 mg/dL 11/30/2024 5:17 AM EDT [facility] Comment: In the event of poor peripheral blood flow, venous or arterial blood should be used due to the potential of erroneous results. Protocols Followed Liner Checker [id number] 11/30/2024 5:17 AM EDT [facility] Blood WHOLE BLOOD / Unknown 11/30/2024 5:13 AM EDT 11/30/2024 5:17 AM EDT Narrative [facility] - 11/30/2024 5:17 AM EDT Liner Checker ID is - [id number] us Albert Garcia MD POINT OF CARE TEST ORDERABLES Fi nal Result Performing Organization Address [facility]/ZIP Co de Phone Number [facility] [address] [phone] * Blood Culture (11/30/2024 3:42 AM EDT) Result No growth in 5 days 12/05/2024 5:01 AM EDT [facility] Blood ENTIRE RIGHT UPPER ARM / Unknown Venipuncture / Unknown 11/30/2024 3:42 AM EDT 11/30/2024 4:09 AM EDT us Huey Hurtado MD MICROBIOLOGY - GENERAL ORDERABLE S Final Result [facility] [address] [phone] * Folate, Serum (11/30/2024 3:40 AM EDT) Folate 7.0 7.0 - 31.4 ng/mL 11/30/2024 6:08 PM EDT [facility] Blood Venipuncture / Unknown 11/30/2024 3:40 AM EDT 11/30/2024 4:09 AM EDT us Laura Batista MD LAB BLOOD ORDERABLES Final Res ult [facility] [address] [phone] * (ABNORMAL) Iron and TIBC (11/30/2024 3:40 AM EDT) Iron 63 50 - 170 ug/dL 11/30/2024 6:13 PM EDT [facility] TIBC 183(L) 250 - 435 ug/dL 11/30/2024 6:13 PM EDT [facility] % Saturation 34 % 11/30/2024 6:13 PM EDT [facility] UIBC 120 11/30/2024 6:13 PM EDT [facility] Blood Venipuncture / Unknown 11/30/2024 3:40 AM EDT 11/30/2024 4:09 AM EDT us Laura Batista MD LAB BLOOD ORDERABLES Final Res ult [facility] [address] [phone] * Ferritin (11/30/2024 3:40 AM EDT) Ferritin 168.51 4.63 - 204.00 ng/mL 11/30/2024 6:08 PM EDT [facility] Blood Venipuncture / Unknown 11/30/2024 3:40 AM EDT 11/30/2024 4:09 AM EDT us Laura Batista MD LAB BLOOD ORDERABLES Final Res ult Performing Organization Address [facility] Co de Phone Number [facility] [address] [phone] * (ABNORMAL) Lactate dehydrogenase (LDH) (11/30/2024 3:40 AM EDT) LDH 261(H) 125 - 220 U/L 11/30/2024 12:18 PM EDT [facility] Blood Venipuncture / Unknown 11/30/2024 3:40 AM EDT 11/30/2024 4:09 AM EDT us Hill Boo MD LAB BLOOD ORDERABLES Final Resu lt Performing Organization Address [facility] Co de Phone Number [facility] [address] [phone] * (ABNORMAL) Creatine Kinase (CK) (11/30/2024 3:40 AM EDT) Total CK 356(H) 29 - 168 U/L 11/30/2024 12:18 PM EDT [facility] Blood Venipuncture / Unknown 11/30/2024 3:40 AM EDT 11/30/2024 4:09 AM EDT us Hill Boo MD LAB BLOOD ORDERABLES Final Resu lt Performing Organization Address [facility] Co de Phone Number [facility] [address] [phone] * (ABNORMAL) Uric acid (11/30/2024 3:40 AM EDT) Uric Acid 11.2(H) 2.5 - 6.2 mg/dL 11/30/2024 12:18 PM EDT [facility] Blood Venipuncture / Unknown 11/30/2024 3:40 AM EDT 11/30/2024 4:09 AM EDT us Hill Boo MD LAB BLOOD ORDERABLES Final Resu lt Performing Organization Address [facility]/ZIP Co de Phone Number [facility] [address] [phone] * Vitamin B12 (11/30/2024 3:40 AM EDT) Pathologist [facility] Vitamin B12 678 213 - 816 pg/mL 11/30/2024 8:10 AM EDT [facility] Blood Venipuncture / Unknown 11/30/2024 3:40 AM EDT 11/30/2024 4:09 AM EDT Timothy Bai MD LAB BLOOD ORDERABLES Final Result Performing Organization Address [facility]/ZIP Co de Phone Number [facility] [address] [phone] * Iron, serum (11/30/2024 3:40 AM EDT) [facility] Iron 64 50 - 170 ug/dL 11/30/2024 8:10 AM EDT [facility] Blood Venipuncture / Unknown 11/30/2024 3:40 AM EDT 11/30/2024 4:09 AM EDT Timothy Bai MD LAB BLOOD ORDERABLES Final Result Performing Organization Address City/[facility]/ZIP Co de Phone Number [facility] [address] [phone] * (ABNORMAL) CBC - Hemogram (SJ-BKR) (11/30/2024 3:40 AM EDT) Pathologist [facility] WBC 1.9(LL) 4.0 - 10.0 K/ L 11/30/2024 4:25 AM EDT [facility] RBC 2.63(L) 3.93 - 5.22 M/ L 11/30/2024 4:25 AM EDT [facility] Hemoglobin 8.2(L) 11.2 - 15.7 GM/DL 11/30/2024 4:25 AM EDT [facility] Hematocrit 26.3(L) 34.1 - 44.9 % 11/30/2024 4:25 AM EDT [facility] MCV 100(H) 79 - 95 fL 11/30/2024 4:25 AM EDT [facility] MCH 31.2 25.6 - 32.2 pg 11/30/2024 4:25 AM EDT [facility] MCHC 31.2(L) 32.2 - 35.5 GM/DL 11/30/2024 4:25 AM EDT [facility] RDW 16.2(H) 11.7 - 14.4 % 11/30/2024 4:25 AM EDT [facility] Platelets 64(L) 140 - 375 K/CU MM 11/30/2024 4:25 AM EDT [facility] MPV 10.4 9.4 - 12.3 fL 11/30/2024 4:25 AM EDT [facility] Blood Venipuncture / Unknown 11/30/2024 3:40 AM EDT 11/30/2024 4:10 AM EDT us Huey Hurtado MD LAB BLOOD ORDERABLES Final Resul t Performing Organization Address City/State/[facility] Co de Phone Number [facility] [address] [phone] * (ABNORMAL) Comprehensive Metabolic Panel (11/30/2024 3:40 AM EDT) Sodium 144 136 - 145 meq/L 11/30/2024 5:07 AM EDT [facility] Potassium 4.6 3.4 - 5.1 meq/L 11/30/2024 5:07 AM EDT [facility] Chloride 115(H) 98 - 112 meq/L 11/30/2024 5:07 AM EDT [facility] CO2 20(L) 22 - 29 meq/L 11/30/2024 5:07 AM [facility] Calcium 8.3(L) 8.4 - 10.2 mg/dL 11/30/2024 5:07 AM [facility] Glucose 86 82 - 115 mg/dL 11/30/2024 5:07 AM [facility] BUN 74.2(H) 9.8 - 20.1 mg/dL 11/30/2024 5:07 AM [facility] Creatinine 4.15(H) 0.57 - 1.11 mg/dL 11/30/2024 5:07 AM [facility] BUN/Creatinine 18 8 - 20 11/30/2024 5:07 AM [facility] eGFR (mL/min/1.73m2) 12(L) >=60 mL/min/1. 73m2 11/30/2024 5:07 AM [facility] Albumin 2.2(L) 3.5 - 5.0 g/dL 11/30/2024 5:07 AM [facility] Alkaline Phosphatase 83 40 - 150 U/L 11/30/2024 5:07 AM [facility] ALT 17 <=34 U/L 11/30/2024 5:07 AM [facility] Comment: ALT2 reagent used for testing does not contain P5P supplementation and therefore may miss ALT elevations in patients with B6 deficiency. This population may be as high as 10% in the [place], with risk factors including malabsorption, drug interactions, and alcoholic hepatitis. AST 43(H) 11 - 34 U/L 11/30/2024 5:07 AM [facility] Comment: AST2 reagent used for testing does not contain P5P supplementation and therefore may miss AST elevations in patients with B6 deficiency. This population may be as high as 10% in the [place], with risk factors including malabsorption, drug interactions, and alcoholic hepatitis. Total Bilirubin 0.8 0.2 - 1.2 mg/dL 11/30/2024 5:07 AM [facility] Protein, Total 6.5 6.4 - 8.3 g/dL 11/30/2024 5:07 AM [facility] Globulin 4.3(H) 2.5 - 4.1 g/dL 11/30/2024 5:07 AM EDT [facility] Anion Gap 14(H) 4 - 12 11/30/2024 5:07 AM EDT [facility] A/G Ratio 0.5(L) 0.7 - 1.9 11/30/2024 5:07 AM EDT [facility] Osmolality Calc 308.1 mOsm/kg 5:07 AM EDT [facility] Blood Venipuncture / Unknown 11/30/2024 3:40 AM EDT 11/30/2024 4:09 AM EDT us Huey Hurtado MD LAB BLOOD ORDERABLES Final Resul t Performing Organization Address [facility] Co de Phone Number [facility] [address] [phone] * Procalcitonin (11/30/2024 3:40 AM EDT) Procalcitonin 0.26 See Comment ng/mL 11/30/2024 5:07 AM EDT [facility] Comment: Sepsis comment <0.5 Antibiotics [...] ORDERABLES Final Resul t Performing Organization Address [facility] Co de Phone Number [facility] [address] [phone] * Blood Culture (11/30/2024 3:40 AM EDT) Result No growth in 5 days 12/05/2024 5:01 AM EDT [facility] Blood ENTIRE LEFT UPPER ARM / Unknown Venipuncture / Unknown 11/30/2024 3:40 AM EDT 11/30/2024 4:09 AM EDT us Huey Hurtado MD MICROBIOLOGY - GENERAL ORDERABLE S Final Result Performing Organization Address [facility]/ZIP Co de Phone Number [facility] [address] [phone] * Ammonia (11/30/2024 3:40 AM EDT) Ammonia 59 18 - 72 mol/L 11/30/2024 4:51 AM EDT [facility] Blood Venipuncture / Unknown 11/30/2024 3:40 AM EDT 11/30/2024 4:10 AM EDT us Huey Hurtado MD LAB BLOOD ORDERABLES Final Resul t Performing Organization Address [facility] Co de Phone Number [facility] [address] [phone] * (ABNORMAL) Magnesium (11/30/2024 3:40 AM EDT) Magnesium 2.7(H) 1.6 - 2.6 mg/dL 11/30/2024 5:07 AM EDT [facility] Blood Venipuncture / Unknown 11/30/2024 3:40 AM EDT 11/30/2024 4:09 AM EDT us Huey Hurtado MD LAB BLOOD ORDERABLES Final Resul t Performing Organization Address [facility] Co de Phone Number [facility] [address] [phone] * Lactic Acid with reflex (11/30/2024 3:40 AM EDT) Lactic Acid Level (mmol/L) 0.9 0.5 - 2.2 mmol/L 11/30/2024 5:37 AM EDT [facility] Blood Venipuncture / Unknown 11/30/2024 3:40 AM EDT 11/30/2024 4:10 AM EDT us Huey Hurtado MD LAB BLOOD ORDERABLES Final Resul t Performing Organization Address [facility] Co de Phone Number [facility] [address] [phone] * aPTT (11/30/2024 3:40 AM EDT) aPTT 27.7 22.0 - 32.0 seconds 11/30/2024 4:32 AM EDT [facility] Blood Venipuncture / Unknown 11/30/2024 3:40 AM EDT 11/30/2024 4:10 AM EDT us Huey Hurtado MD LAB BLOOD ORDERABLES Final Resul t Performing Organization Address [facility] Co de Phone Number [facility] [address] [phone] * (ABNORMAL) Prothrombin time/INR (11/30/2024 3:40 AM EDT) Protime 12.9(H) 9.0 - 12.0 seconds 11/30/2024 4:32 AM EDT [facility] INR 1.17(H) 0.80 - 1.10 11/30/2024 4:32 AM EDT [facility] Comment: Recommended therapeutic ranges using [...] MD LAB BLOOD ORDERABLES Final Resul t [facility] [address] [place] [address], [facility] [phone] * EKG-SCANNED (11/30/2024) Narrative 11/30/2024 Ordered by [...] Blood Sugar is less than 180 beteween 6497-8950, DO NOT give corrective insulin unless otherwise [...] Olimpia Mcmillan RN)2031 (Given - Provider: Jamal Lopez, DAYANARA) 0930 (Given - Provider: Olimpia Mcmillan RN)1608 (Given - Provider: Olimpia Mcmillan RN) insulin lispro (HUMALOG, ADMELOG) injection 0-18 Units 0-18 Units 4 times daily (before meals and nightly), subcutaneous, First dose on Fri11/30/24 at 0730, If Blood Sugar is less than 180 beteween 4545-8042, DO NOT give corrective insulin unless otherwise [...] flush documented in this encounter Care Teams Electric Switch Repairer Relationship Specialty Start Date End Date [facility], [facility] [place] [id number] PCP - General 11/30/24 12/13/24 documented as of this encounter
[2025-01-03 13:25] LABS: Basophils % 0.6 % (0.1-2.0); Hematocrit 29.8 % (37.0-47.0); Hemoglobin 9.2 g/dL (12.2-16.2); Immature Granulocytes # 0 10^3uL; Immature Granulocytes % 0 %; Lymphocytes # 0.6 K/mm3 (0.7-4.5); Lymphocytes % 34.1 % (10-50); Mean Corpuscular HGB Conc 30.9 g/dL (31.8-35.4); Mean Corpuscular Hemoglobin 30.4 pg (27.0-31.2); Mean Corpuscular Volume 98.3 fl (81-99); Mean Platelet Volume 12.2 fl (7.4-10.4); Monocytes # 0.1 K/mm3 (0.1-1.0); Monocytes % 8.1 % (1.7-9.3); Neutrophils % 57.2 % (37.0-80.0); Nucleated Red Blood Cells # 0 10^3/uL; Nucleated Red Blood Cells % 0 %; Platelet Count 54 K/mm3 (142-424); Red Blood Count 3.03 M/mm3 (4.20-5.40); Red Cell Distribution Width 15.4 % (11.5-17.5); Red Cell Distribution Width-SD 55.5 fL
--- OUTSIDE RECORDS SUMMARY | 2025-01-03 13:26 | XMS_ITS | Encounter Summary ---
Author Organization [facility] Address [address] [place] [address] Care Team Providers Care Pit Supervisor Name Role Phone [facility], [facility]Doc Primary Care Provider Reason for Visit * Reason Onset Date Comments Appointment 12/06/2024 Encounter Details Date Type Department Care Team (Late st Contact Info) Description 12/06/2024 Telephone [facility] - [place] [address] [place] [address] Mimi Moreno, RN Appointment Social History Tobacco Use Types Packs/Day Years [...] Do you speak a language other than [facility]? No 11/30/2024 Do you want [...] on file documented as of this encounter Miscellaneous Notes * Telephone Encounter - Mimi Moreno RN - 12/06/2024 10:57 AM EDT Nurse called and spoke to relative with appt details and they verbalized understanding documented in this encounter Plan of Treatment Upcoming Encounters Date Type Department Care Team (Late st Contact Info) Description 01/27/2025 10:45 AM EDT Office Visit [facility] [address] [facility] [address] [place] [address] [place] [address] [place] [address] [address] [place] [address] documented as of this encounter Visit Diagnoses Not on filedocumented in this encounter Care Teams Pit Supervisor Relationship Specialty Start Date End Date [facility], Find-A-Doc [facility] [place] [address] PCP - General 11/30/24 12/13/24 documented as of this encounter
--- OUTSIDE RECORDS SUMMARY | 2025-01-03 13:26 | XMS_ITS | Encounter Summary ---
Author Organization [facility] Address [address] 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, unspecified vessel or lesion type (CMS/[facility]) Social History Tobacco Use Types Packs/Day Years Used Date Smoking Tobacco: Never Passive Smoke Exposure: Never Smokeless Tobacco: Never Alcohol Use Standard Drinks/Week Comments Never 0 (1 standard drink = 0.6 oz pur e alcohol) PHQ-2 Answer Date Recorded Patient Health Questionnaire-2 Score 0 01/02/2022 Comments Unknown Sex and Gender Information Value Date Recorded Sex Assigned at Not on file Legal Sex Female 6:32 PM EDT Gender Identity Not on file Sexual Orientation Not on file documented as of this encounter Plan of Treatment Not on file documented as of this encounter Visit Diagnoses Diagnosis CKD (chronic kidney disease) stage 2, GFR 60-89 ml/min Chronic kidney disease, Stage II (mild) Microalbuminuria Proteinuria 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
--- OUTSIDE RECORDS SUMMARY | 2025-01-03 13:27 | XMS_ITS | Referral Summary ---
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 5B Medical Telemetry Unit [address] [place] [address] Albert Garcia MD Shamsulddin, Haider, MD Zohary, Yasser, MD Majeed, Irfan, MD Edie, QUIQUE Thomas Enoch, MD Melena (Primary Dx); Anasarca Discharge Disposition: Home or Self Care 12/06/2024 Telephone [facility] - [place] [address] [place] [address] Mimi Moreno, DAYANARA Appointment 12/01/2024 8:55 AM EDT Anesthesia Event [facility] Endoscopy 1 [place] [address] Isabell-Ashtyn Rowley MD 12/01/2024 9:19 AM EDT - 12/01/2024 9:50 AM EDT Surgery [facility] Endoscopy 1 [place] [address] Scott Daley MD EGD, WITH FOREIGN BODY REMOVAL 11/30/2024 Travel from Last 3 Months Allergies No known active allergies Medications hydrOXYzine pamoate (VISTARIL) 50 MG capsule Take 1 capsule (50 mg total) by mouth every night as needed for itching (sleep) Look-alike/So und-alike medication. Active ammonium lactate (AMLACTIN) 12 % cream Apply 1 g topically as needed for dry skin. Active insulin aspart U-100 (NovoLOG) 100 unit/mL (3 mL) inpn Inject under the skin 4 (four) times daily before meals and nightly. Active atorvastatin (LIPITOR) 20 MG tablet Take 1 tablet (20 mg total) by mouth nightly. Active albuterol 90 mcg/actuation inhaler Inhale 1 puff by mouth every 6 (six) hours as needed for wheezing. Active HYDROcodone-a cetaminophen (NORCO) 10-325 mg per tablet Take 1 tablet by mouth every 6 (six) hours as needed for pain. Max Daily Amount: 4 tablets Active amiodarone (PACERONE) 200 MG tablet Take 1 tablet (200 mg total) by mouth daily for 30 days. 30 tablet 12/08/19 25 025 Active ergocalcifero l (DRISDOL) 1,250 mcg (50,000 unit) capsule Take 1 capsule (50,000 Units total) by mouth every 7 days for 30 days. 4 capsule 12/08/19 25 025 Active pantoprazole (PROTONIX) 40 MG tablet Take 1 tablet (40 mg total) by mouth 2 (two) times daily for 30 days. 60 tablet 12/07/19 25 025 Active lactulose (CHRONULAC) 10 gram/15 mL solution Take 15 mLs (10 g total) by mouth 2 (two) times daily. 900 mL 12/07/19 25 Active rifAXIMin (XIFAXAN) 550 mg Take 1 tablet (550 mg total) by mouth 2 (two) times daily. 60 tablet 12/07/19 25 Active bumetanide (BUMEX) 2 MG tablet Take 1 tablet (2 mg total) by mouth 2 (two) times daily. 60 tablet 12/15/19 25 Active metOLazone (ZAROXOLYN) 2.5 MG tablet Take 1 tablet (2.5 mg total) by mouth daily as needed. 30 tablet 12/15/19 25 Active spironolacton e (ALDACTONE) 25 MG tablet Take 0.5 tablets (12.5 mg total) by mouth daily. 15 tablet 12/15/19 25 Active tamsulosin (FLOMAX) 0.4 mg cap 24 hr capsule Take 1 capsule (0.4 mg total) by mouth every evening for 30 days. 30 capsule 12/15/19 25 025 Active clopidogreL (PLAVIX) 75 mg tablet Take 1 tablet (75 mg total) by mouth daily Look-alike/So und-alike medication. 025 Discontinued(S top Taking at Discharge) triamcinolone (KENALOG) 0.1 % topical cream Apply 0.1 Applications topically daily to affected area.. 025 Discontinued(S top Taking at Discharge) bisoprolol (ZEBETA) 10 MG tablet Take 1 tablet (10 mg total) by mouth 2 (two) times daily. 025 Discontinued(S top Taking at Discharge) cholecalcifer ol (VITAMIN D3) 125 mcg (5,000 unit) tablet Take 2 tablets (10,000 Units total) by mouth daily. 025 Discontinued(S top Taking at Discharge) metFORMIN (GLUCOPHAGE) 1000 MG tablet Take 1 tablet (1,000 mg total) by mouth 2 (two) times daily with breakfast and dinner Look-alike/So und-alike medication. 025 Discontinued(S top Taking at Discharge) lisinopriL (ZESTRIL) 10 MG tablet Take 1 tablet (10 mg total) by mouth 2 (two) times daily. 025 Discontinued(S top Taking at Discharge) tirzepatide 7.5 mg/0.5 mL pnij Inject 7.5 mg under the skin every 7 days. 025 Discontinued(S top Taking at Discharge) furosemide (LASIX) 40 MG tablet Take 1 tablet (40 mg total) by mouth 2 (two) times daily. 025 Discontinued(S top Taking at Discharge) aspirin 81 MG chewable tablet Take 1 tablet (81 mg total) by mouth daily. 025 Discontinued(S top Taking at Discharge) gabapentin (NEURONTIN) 800 MG tablet Take 1 tablet (800 mg total) by mouth 3 (three) times daily. Max Daily Amount: 2,400 mg Discontinued(S top Taking at Discharge) colestipoL (COLESTID) 1 gram tablet Take 2 tablets (2 g total) by mouth daily. 025 Discontinued(S top Taking at Discharge) dicyclomine (BENTYL) 10 MG capsule Take 1 capsule (10 mg total) by mouth 2 (two) times daily. Discontinued(S top Taking at Discharge) cefTRIAXone (ROCEPHIN) 2 g in NS 50 mL MELIDA IVPB Infuse 2 g into a venous catheter daily. 12/07/19 025 Discontinued(S top Taking at Discharge) amoxicillin-c lavulanate (AUGMENTIN) 500-125 mg per tablet Take 1 tablet by mouth 2 (two) times daily for 7 days. 14 tablet 12/07/19 Discontinued(S top Taking at Discharge) gabapentin (NEURONTIN) 100 MG capsule Take 2 capsules (200 mg total) by mouth 3 (three) times daily for 3 days. Max Daily Amount: 600 mg 12/08/19 025 Discontinued spironolacton e (ALDACTONE) 25 MG tablet Take 0.5 tablets (12.5 mg total) by mouth every other day for 30 days. 8 tablet 12/08/19 025 Discontinued(S top Taking at Discharge) bumetanide (BUMEX) 1 MG tablet Take 1 tablet (1 mg total) by mouth 2 (two) times daily. 12/09/19 025 Discontinued(S top Taking at Discharge) spironolacton e (ALDACTONE) 25 MG tablet Take 0.5 tablets (12.5 mg total) by mouth daily. 12/10/19 025 Discontinued metOLazone (ZAROXOLYN) 2.5 MG tablet Take 1 tablet (2.5 mg total) by mouth daily. 30 tablet 12/16/19 025 Discontinued tamsulosin (FLOMAX) 0.4 mg cap 24 hr capsule Take 1 capsule (0.4 mg total) by mouth every evening for 30 days. 30 capsule 12/15/19 025 Discontinued gabapentin (NEURONTIN) 100 MG capsule Take 1 capsule (100 mg total) by mouth 3 (three) times daily for 3 days. Max Daily Amount: 300 mg 12/15/19 25 025 Discontinued gabapentin (NEURONTIN) 100 MG capsule Take 1 capsule (100 mg total) by mouth 3 (three) times daily for 3 days. Max Daily Amount: 300 mg 9 capsule 12/15/19 25 025 Active Problems Problem Noted Date Diagnosed Date Anasarca 11/30/2024 Melena 11/29/2024 Social History Tobacco Use Types Packs/Day Years [...] your living situation today? I have a [facility] place to live 11/30/2024 Think about [...] Do you speak a language other than [place] at [facility]? No 11/30/2024 Do you [...] on file Sexual Orientation Not on file Last Filed Vital Signs Vital Sign Reading [...] Mass Index 29.86 12/01/2024 8:09 AM EDT Plan of Treatment Upcoming Encounters Date Type Department Care Team (Late st Contact Info) Description 01/27/2025 10:45 AM EDT Office Visit [facility] [address] [place] [address] [address] [place] [id number] Deysi Jon MD [address] [place] [address] [address] [place] [address] Procedures Procedure Name Priority Date/Time Associated Diagnosis Comments NOVA GLUCOSE POC Routine 12/14/2024 3:41 PM EDT NOVA GLUCOSE POC Routine 12/14/2024 10:2 9 AM EDT FS_MODEL_IP_ECG 12-LEAD Routine 12/14/2024 9:10 AM EDT NOVA GLUCOSE POC Routine 12/14/2024 4:24 AM EDT COMPREHENSIVE METABOLIC PANEL Routine 12/14/2024 2:54 AM EDT CBC W/ AUTO DIFF Routine 12/14/2024 2:54 AM EDT NOVA GLUCOSE POC Routine 12/13/2024 8:20 PM EDT NOVA GLUCOSE POC Routine 12/13/2024 4:24 PM EDT FS_MODEL_IP_ECG 12-LEAD Routine 12/13/2024 1:14 PM EDT NOVA GLUCOSE POC Routine 12/13/2024 1:07 PM EDT NOVA GLUCOSE POC Routine 12/13/2024 11:1 5 AM EDT NOVA GLUCOSE POC Routine 12/13/2024 5:46 AM EDT [facility] CBC SCAN Routine 12/13/2024 3:15 AM EDT HEPATIC FUNCTION PANEL Routine 12/13/2024 3:15 AM EDT CBC W/ AUTO DIFF Routine 12/13/2024 3:15 AM EDT BASIC METABOLIC PANEL Routine 12/13/2024 3:15 AM EDT NOVA GLUCOSE POC Routine 12/12/2024 8:01 PM EDT NOVA GLUCOSE POC Routine 12/12/2024 3:51 PM EDT NOVA GLUCOSE POC Routine 12/12/2024 10:3 1 AM EDT FS_MODEL_IP_ECG 12-LEAD Routine 12/12/2024 9:22 AM EDT NOVA GLUCOSE POC Routine 12/12/2024 5:43 AM EDT [facility] CBC SCAN Routine 12/12/2024 3:47 [...] FS_MODEL_IP_ECG 12-LEAD Routine 12/10/2024 10:07 AM EDT MAGNESIUM Routine 12/10/2024 9:53 AM EDT ALT (SGPT) Routine 12/10/2024 9:53 AM EDT AST (SGOT) Routine 12/10/2024 9:53 AM EDT XR CHEST [...] GLUCOSE POC Routine 12/07/2024 5:51 AM EDT ERYTHROPOIETIN(SENDOU T) Routine 12/07/2024 3:59 AM EDT AMMONIA Routine 12/07/2024 3:59 AM EDT COMPREHENSIVE METABOLIC PANEL Routine 12/07/2024 3:59 AM EDT MAGNESIUM Routine 12/07/2024 3:59 AM EDT CBC HEMOGRAM (SJ-BKR) Routine 12/07/2024 3:59 AM EDT NOVA GLUCOSE POC Routine 12/06/2024 7:26 PM EDT NOVA GLUCOSE POC Routine 12/06/2024 4:06 PM EDT FS_MODEL_IP_ECG 12-LEAD Routine 12/06/2024 1:16 PM EDT NOVA GLUCOSE POC Routine 12/06/2024 10:3 6 AM EDT XR CHEST AP PORTABLE Routine 12/06/2024 7:34 AM EDT NOVA GLUCOSE POC Routine 12/06/2024 5:26 AM EDT FERRITIN Add-On 12/06/2024 3:13 AM EDT AMMONIA Routine 12/06/2024 3:13 AM EDT COMPREHENSIVE METABOLIC PANEL Routine 12/06/2024 3:13 AM EDT MAGNESIUM Routine 12/06/2024 3:13 AM EDT CBC HEMOGRAM (SJ-BKR) Routine 12/06/2024 3:13 AM EDT NOVA GLUCOSE POC Routine 12/05/2024 7:21 PM EDT NOVA GLUCOSE POC Routine 12/05/2024 5:01 PM EDT HEMOGLOBIN Routine 12/05/2024 3:36 PM EDT NOVA GLUCOSE POC Routine 12/05/2024 10:2 3 AM EDT NOVA GLUCOSE POC Routine 12/05/2024 8:10 AM EDT HEMOGLOBIN Routine 12/05/2024 8:00 AM EDT AMMONIA Routine 12/05/2024 3:20 AM EDT COMPREHENSIVE METABOLIC PANEL Routine 12/05/2024 3:20 AM EDT MAGNESIUM Routine 12/05/2024 3:20 AM EDT CBC HEMOGRAM (SJ-BKR) Routine 12/05/2024 3:20 AM EDT HEMOGLOBIN Routine [...] AUTO DIFF Add-On 12/04/2024 8:15 AM EDT HEMOGLOBIN Routine 12/04/2024 8:15 AM EDT ANCA VASCULITIS PROFILE(SENDOUT) Routine 12/04/2024 8:15 AM EDT JEANA REFLEXIVE PROFILE(SENDOUT) Routine 12/04/2024 8:15 AM EDT XR CHEST AP PORTABLE Routine 12/04/2024 6:49 AM EDT BLOOD GAS, ARTERIAL Routine 12/04/2024 6 :34 AM EDT NOVA GLUCOSE POC Routine 12/04/2024 6:13 AM EDT CBC W/ AUTO DIFF Routine 12/04/2024 3:35 AM EDT AMMONIA Routine 12/04/2024 3:35 AM EDT PHOSPHORUS Routine 12/04/2024 3:34 AM EDT COMPREHENSIVE METABOLIC PANEL Routine 12/04/2024 3:34 AM EDT MAGNESIUM Routine 12/04/2024 3:34 AM EDT FS_MODEL_IP_ECG 12-LEAD [...] AUTO DIFF Routine 12/03/2024 8:31 AM EDT CREATINE KINASE (CK) Routine 12/03/2024 7:39 AM EDT AMMONIA Routine 12/03/2024 7:39 AM EDT COMPREHENSIVE METABOLIC PANEL Routine 12/03/2024 7:39 AM EDT MAGNESIUM Routine 12/03/2024 7:39 AM EDT NOVA GLUCOSE [...] GLUCOSE POC Routine 12/02/2024 5:04 AM EDT AMMONIA Routine 12/02/2024 3:38 AM EDT COMPREHENSIVE METABOLIC PANEL Routine 12/02/2024 3:38 AM EDT MAGNESIUM Routine 12/02/2024 3:38 AM EDT CBC HEMOGRAM (SJ-BKR) Routine 12/02/2024 3:38 AM EDT HEMOGLOBIN Routine 12/02/2024 12:04 AM EDT NOVA GLUCOSE POC Routine 12/01/2024 7:34 PM EDT NOVA GLUCOSE POC Routine 12/01/2024 4:25 PM EDT HEMOGLOBIN Routine 12/01/2024 3:33 PM EDT NOVA GLUCOSE POC Routine 12/01/2024 10:3 2 AM EDT ANESTHESIA INTUBATION Routine 12/01/2024 9:01 AM EDT NE EGD FLEXIBLE FOREIGN BODY REMOVAL 12/01/2024 8:55 AM EDT Melena FS_MODEL_IP_TRANSFUSE RED BLOOD CELLS Routine 12/01/2024 8:36 AM EDT NOVA GLUCOSE POC Routine 12/01/2024 8:12 AM EDT TYPE AND SCREEN ([place] BKR) Routine 12/01/2024 7:08 AM EDT NOVA GLUCOSE POC Routine 12/01/2024 5:37 AM EDT FS_MODEL_IP_PREPARE RBC Routine 12/01/2024 4:53 AM EDT ABO/RH CONFIRMATION/RETYPE ([place] BKR) Routine 12/01/2024 4:06 AM EDT AMMONIA Routine 12/01/2024 4:06 AM EDT CBC HEMOGRAM (SJ-BKR) Routine 12/01/2024 4:06 AM EDT COMPREHENSIVE METABOLIC PANEL Routine 12/01/2024 4:05 AM EDT MAGNESIUM Routine 12/01/2024 4:05 AM EDT NOVA GLUCOSE POC Routine 11/30/2024 7:38 PM EDT NOVA GLUCOSE POC Routine 11/30/2024 6:22 PM EDT US RENAL LIMITED Routine 11/30/2024 4:19 PM EDT US LIVER Routine 11/30/2024 4:19 PM EDT US PARACENTESIS Routine 11/30/2024 4:17 PM EDT CYTOLOGY ([facility]) AP Routine 11/30/2024 4:03 PM EDT Melena PROTEIN, BODY FLUID Routine 11/30/2024 4 :03 PM EDT GLUCOSE, BODY FLUID Routine 11/30/2024 4 :03 PM EDT BODY FLUID/CSF- PATH REVIEW LAB ONLY (SJ-BKR) Routine 11/30/2024 4:03 PM EDT Melena [facility] DIFFERENTIAL, BODY FLUID Routine 11/30/2024 4:03 PM EDT Melena AFB CULTURE AND STAIN Routine 11/30/2024 4:03 PM EDT Melena FUNGUS CULTURE W/ROSA MARIA OR NIMISHA INK Routine 11/30/2024 4:03 PM EDT Melena ANAEROBIC CULTURE Routine 11/30/2024 4:0 3 PM EDT Melena BODY FLUID CULTURE + GRAM STAIN Routine 11/30/2024 4:03 PM EDT Melena BODY FLUID CELL COUNT WITH DIFFERENTIAL Routine 11/30/2024 4:03 PM EDT Melena LACTATE DEHYDROGENASE (LDH), BODY FLUID Routine 11/30/2024 4:03 PM EDT Melena PROTEIN / CREATININE RATIO, URINE Add-On 11/30/2024 11:35 AM EDT UREA NITROGEN, RANDOM URINE Add-On 11/30/2024 11:35 AM EDT SODIUM, RANDOM URINE Add-On 11/30/2024 11:35 AM EDT URINALYSIS MICROSCOPIC Routine 11/30/2024 11:35 AM EDT URINALYSIS, REFLEX MICROSCOPIC AND CULTURE IF INDICATED Routine 11/30/2024 11:35 AM EDT URINE CULTURE Routine [...] BLOOD CULTURE STAT 11/30/2024 3:42 AM EDT FOLATE, SERUM Add-On 11/30/2024 3:40 AM EDT IRON AND TIBC Add-On 11/30/2024 3:40 AM EDT FERRITIN Add-On 11/30/2024 3:40 AM EDT LACTATE DEHYDROGENASE (LDH) Add-On 11/30/2024 3:40 AM EDT CREATINE KINASE (CK) Add-On 11/30/2024 3:40 AM EDT URIC ACID Add-On 11/30/2024 3:40 AM EDT VITAMIN B12 Add-On 11/30/2024 3:40 AM EDT IRON, SERUM Add-On 11/30/2024 3:40 AM EDT PROCALCITONIN STAT 11/30/2024 3:40 AM EDT CBC HEMOGRAM (SJ-BKR) Routine 11/30/2024 3:40 AM EDT AMMONIA STAT 11/30/2024 3:40 AM EDT MAGNESIUM STAT 11/30/2024 3:40 AM EDT LACTIC ACID WITH REFLEX STAT 11/30/2024 3:40 AM EDT APTT STAT 11/30/2024 3:40 AM EDT PROTHROMBIN TIME/INR STAT 11/30/2024 3:40 AM EDT COMPREHENSIVE METABOLIC PANEL Routine 11/30/2024 3:40 AM EDT BLOOD CULTURE STAT 11/30/2024 3:40 AM EDT EKG-SCANNED 11/30/2024 EKG-SCANNED 11/30/2024 EKG-SCANNED 11/30/2024 from Last 3 Months Results * (ABNORMAL) Glucose, Nova Meter (12/14/2024 3:41 PM EDT) Only the most recent of63 resultswithin the time period is included. [facility] POC-GLUCOSE 203(H) 70 - 110 mg/dL 12/14/2024 3:[address] [facility] Comment: In the event of poor peripheral blood flow, venous or arterial blood should be used due to the potential of erroneous results. Notified Nurse RBV Skid Adzer [id number] 12/14/2024 3:[address] [facility] Blood WHOLE BLOOD / Unknown 12/14/2024 3:41 PM EDT 12/14/2024 3:[address] [facility] - 12/14/2024 3:42 PM EDT Skid Adzer ID is - [id number] David Coffman PA-C POINT OF CARE TEST ORDERABLES Final Result Performing Organization Address City/State/[facility] Co de Phone Number [facility] [address] [phone] * ECG 12 lead (12/14/2024 9:10 AM EDT) Only the most recent of13 resultswithin the time period is included. [facility] VENTRICULAR RATE EKG/MIN 89 BPM GE MUSE ATRIAL RATE (MCT) 89 BPM GE MUSE NE Interval 146 ms GE MUSE QRS-INTERVAL (MSEC) 86 ms GE MUSE QT Interval 432 ms GE MUSE QTC Interval 525 ms GE MUSE P [place] 34 degrees GE MUSE R AXIS (MCT) -13 degrees GE MUSE T Wave [place] -2 degrees GE MUSE [place] Diagnosis Normal sinus rhythm Septal infarct (cited on or before 14-DEC-2024 ) Confirmed by DEYSI JON M.D. ([id number]) on 12/14/2024 5:07:26 PM GE MUSE 12/14/2024 9:10 AM EDT 12/14/2024 5:07 PM EDT us Deyis Jon MD ECG ORDERABLES Final Result GE MUSE * (ABNORMAL) CBC with automated diff (12/14/2024 2:54 AM EDT) Only the most recent of7 resultswithin the time period is included. WBC 1.4(LL) 4.0 - 10.0 K/ L 12/14/2024 3:[address] [facility] RBC 2.45(L) 3.93 - 5.22 M/ L 12/14/2024 3:[address] [facility] Hemoglobin 7.6(L) 11.2 - 15.7 GM/DL 12/14/2024 3:[address] [facility] Hematocrit 24.1(L) 34.1 - 44.9 % 12/14/2024 3:[address] [facility] MCV 98(H) 79 - 95 fL 12/14/2024 3:[address] [facility] MCH 31.0 25.6 - 32.2 pg 12/14/2024 3:[address] [facility] MCHC 31.5(L) 32.2 - 35.5 GM/DL 12/14/2024 3:[address] [facility] RDW 16.3(H) 11.7 - 14.4 % 12/14/2024 3:[address] [facility] Platelets 51(L) 140 - 375 K/CU MM 12/14/2024 3:[address] [facility] MPV 12.3 9.4 - 12.3 fL 12/14/2024 3:[address] [facility] % Neutros 54 34 - 71 % 12/14/2024 3:[address] [facility] % Lymphs 32 19 - 52 % 12/14/2024 3:[address] [facility] % Monos 14(H) 5 - 13 % 12/14/2024 3:[address] [facility] % Eos 0(L) 1 - 6 % 12/14/2024 3:[address] [facility] % Baso 1 0 - 1 % 12/14/2024 3:[address] [facility] NRBC Absolute <0.01 0 - 0.012 K/ul 12/14/2024 3:[address] [facility] # Neutros 0.76(L) 1.56 - 6.13 K/ L 12/14/2024 3:[address] [facility] # Lymphs 0.45(L) 1.18 - 3.74 K/ L 12/14/2024 3:[address] [facility] # Monos 0.19(L) 0.24 - 0.86 K/ L 12/14/2024 3:[address] [facility] # Eos <0.03(L) 0.04 - 0.36 K/ L 12/14/2024 3:[address] [facility] # Baso <0.03 0.01 - 0.08 K/ L 12/14/2024 3:[address] [facility] Immature Granulocytes-Re lative 0.00(L) 0.01 - 0.43 % 12/14/2024 3:[address] [facility] # IG <0.03 0.00 - 0.03 K/uL 12/14/2024 3:[address] [facility] Blood Venipuncture / Unknown 12/14/2024 2:54 AM EDT 12/14/2024 3:[address] [facility] - 12/14/2024 3:45 AM EDT When [...] LAB BLOOD ORDERABLES Final Re sult [facility] [address] [place] [address], [facility] [phone] * (ABNORMAL) Comprehensive metabolic panel (12/14/2024 2:54 AM EDT) Only the most recent of9 resultswithin the time period is included. Sodium 145 136 - 145 meq/L 12/14/2024 4:[address] [facility] Potassium 3.5 3.4 - 5.1 meq/L 12/14/2024 4:[address] [facility] Chloride 109 98 - 112 meq/L 12/14/2024 4:[address] [facility] CO2 27 22 - 29 meq/L 12/14/2024 4:[address] [facility] Calcium 8.6 8.4 - 10.2 mg/dL 12/14/2024 4:[address] [facility] Glucose 146(H) 82 - 115 mg/dL 12/14/2024 4:[address] [facility] BUN 67.7(H) 9.8 - 20.1 mg/dL 12/14/2024 4:[address] [facility] Creatinine 2.22(H) 0.57 - 1.11 mg/dL 12/14/2024 4:13 AM [facility] BUN/Creatinine 30(H) 8 - 20 12/14/2024 4:[address] [facility] eGFR (mL/min/1.73m2) 25(L) >=60 mL/min/1. 73m2 12/14/2024 4:[address] [facility] Albumin 3.2(L) 3.5 - 5.0 g/dL 12/14/2024 4:[address] [facility] Alkaline Phosphatase 56 40 - 150 U/L 12/14/2024 4:[address] [facility] ALT 21 <=34 U/L 12/14/2024 4:[address] [facility] Comment: ALT2 reagent used for testing does not contain P5P supplementation and therefore may miss ALT elevations in patients with B6 deficiency. This population may be as high as 10% in the [place], with risk factors including malabsorption, drug interactions, and alcoholic hepatitis. AST 52(H) 11 - 34 U/L 12/14/2024 4:[address] [facility] Comment: AST2 reagent used for testing does not contain P5P supplementation and therefore may miss AST elevations in patients with B6 deficiency. This population may be as high as 10% in the [place], with risk factors including malabsorption, drug interactions, and alcoholic hepatitis. Total Bilirubin 0.9 0.2 - 1.2 mg/dL 12/14/2024 4:[address] [facility] Protein, Total 5.9(L) 6.4 - 8.3 g/dL 12/14/2024 4:[address] [facility] Globulin 2.7 2.5 - 4.1 g/dL 12/14/2024 4:[address] [facility] Anion Gap 13(H) 4 - 12 12/14/2024 4:[address] [facility] A/G Ratio 1.2 0.7 - 1.9 12/14/2024 4:[address] [facility] Osmolality Calc 311.0 mOsm/kg 4:[address] [facility] Blood Venipuncture / Unknown 12/14/2024 2:54 AM EDT 12/14/2024 3:26 AM EDT David Coffman PA-C LAB BLOOD ORDERABLES Final Re sult [facility] [address] [phone] * (ABNORMAL) CBC Scan (12/13/2024 3:15 AM EDT) Only the most recent of2 resultswithin the time period is included. Platelet Estimate Decreased (A) Adequate 12/13/2024 4:[address] [facility] RBC Morphology abnormal( A) Normal 12/13/2024 4:[address] [facility] Anisocytosis 1+ 12/13/2024 4:[address] [facility] Hypochromia 1+ 12/13/2024 4:[address] [facility] Ovalocytes 1+ 12/13/2024 4:[address] [facility] Blood Venipuncture / Unknown 12/13/2024 3:15 AM EDT 12/13/2024 3:27 AM EDT us Venkatesh Stephen MD LAB BLOOD ORDERABLES Final Resul t [facility] [address] [phone] * (ABNORMAL) Hepatic function panel (12/13/2024 3:15 AM EDT) Protein, Total 5.7(L) 6.4 - 8.3 g/dL 12/13/2024 4:[address] [facility] Albumin 3.1(L) 3.5 - 5.0 g/dL 12/13/2024 4:[address] [facility] Total Bilirubin 0.8 0.2 - 1.2 mg/dL 12/13/2024 4:[address] [facility] Bilirubin, Direct 0.4 0.0 - 0.5 mg/dL 12/13/2024 4:[address] [facility] Alkaline Phosphatase 53 40 - 150 U/L 12/13/2024 4:[address] [facility] Globulin 2.6 2.5 - 4.1 g/dL 12/13/2024 4:[address] [facility] A/G Ratio 1.2 0.7 - 1.9 12/13/2024 4:[address] [facility] AST 42(H) 11 - 34 U/L 12/13/2024 4:[address] [facility] Comment: AST2 reagent used for testing does not contain P5P supplementation and therefore may miss AST elevations in patients with B6 deficiency. This population may be as high as 10% in the [place], with risk factors including malabsorption, drug interactions, and alcoholic hepatitis. ALT 16 <=34 U/L 12/13/2024 4:[address] [facility] Comment: ALT2 reagent used for testing does not contain P5P supplementation and therefore may miss ALT elevations in patients with B6 deficiency. This population may be as high as 10% in the [place], with risk factors including malabsorption, drug interactions, and alcoholic hepatitis. Blood Venipuncture / Unknown 12/13/2024 3:15 AM EDT 12/13/2024 3:39 AM EDT us Yousef Rakesh OROZCO LAB BLOOD ORDERABLES Final Resu lt [facility] [address] [phone] * (ABNORMAL) Basic Metabolic Panel (12/13/2024 3:15 AM EDT) Only the most recent of6 resultswithin the time period is included. Sodium 147(H) 136 - 145 meq/L 12/13/2024 4:[address] [facility] Potassium 3.5 3.4 - 5.1 meq/L 12/13/2024 4:[address] [facility] CO2 27 22 - 29 meq/L 12/13/2024 4:[address] [facility] Chloride 110 98 - 112 meq/L 12/13/2024 4:[address] [facility] Glucose 135(H) 82 - 115 mg/dL 12/13/2024 4:13 [facility] BUN 71.9(H) 9.8 - 20.1 mg/dL 12/13/2024 4:[address] [facility] Creatinine 2.29(H) 0.57 - 1.11 mg/dL 12/13/2024 4:[address] [facility] BUN/Creatinine 31(H) 8 - 20 12/13/2024 4:13 AM [facility] Calcium 8.5 8.4 - 10.2 mg/dL 12/13/2024 4:[address] [facility] Anion Gap 14(H) 4 - 12 12/13/2024 4:[address] [facility] eGFR (mL/min/1.73m2) 24(L) >=60 mL/min/1.7 3m2 12/13/2024 4:[address] [facility] Osmolality Calc 315.6 mOsm/kg 4:[address] [facility] Blood Venipuncture / Unknown 12/13/2024 3:15 AM EDT 12/13/2024 3:39 AM EDT us Venkatesh Stephen MD LAB BLOOD ORDERABLES Final Resul t [facility] [address] [phone] * US paracentesis (12/10/2024 11:37 AM EDT) Only the most recent of2 resultswithin the time period is included. Anatomical Region Laterality Modality Abdomen Ultrasound 12/10/2024 1:22 PM EDT Impressions 12/10/2024 3:27 PM EDT Ultrasound guided right lower quadrant paracentesis as discussed above. 7.5 liters of clear yellow fluid was removed. Images reviewed, interpreted, and dictated by Dr. Haseeb Gil. Transcribed by Sujit Blackman PA-C. Narrative 12/10/2024 3:27 PM EDT ULTRASOUND-GUIDED PARACENTESIS HISTORY: Ascites. ATTENDING PHYSICIAN: Dr. Haseeb Gil PHYSICIAN PLUMBING INSTALLER: Sujit Blackman PA-C FINDINGS: After informed consent [...] Ascites. ATTENDING PHYSICIAN: Dr. Haseeb Gil PHYSICIAN PLUMBING INSTALLER: Sujit Blackman PA-C FINDINGS: After informed consent [...] Blackman PA-C. us Mary Carmen Mcfadden MD [facility] US ORDERABLES Final Result * ALT (SGPT) (12/10/2024 9:53 AM EDT) ALT 12 <=34 U/L 12/10/2024 11:[address] [facility] Comment: ALT2 reagent used for testing does not contain P5P supplementation and therefore may miss ALT elevations in patients with B6 deficiency. This population may be as high as 10% in the [place], with risk factors including malabsorption, drug interactions, and alcoholic hepatitis. Blood Venipuncture / Unknown 12/10/2024 9:53 AM EDT 12/10/2024 10:39 AM EDT us Deysi Jon MD LAB BLOOD ORDERABLES Final Resul t [facility] [address] [phone] * (ABNORMAL) AST (SGOT) (12/10/2024 9:53 AM EDT) AST 39(H) 11 - 34 U/L 12/10/2024 11:[address] [facility] Comment: AST2 reagent used for testing does not contain P5P supplementation and therefore may miss AST elevations in patients with B6 deficiency. This population may be as high as 10% in the [place], with risk factors including malabsorption, drug interactions, and alcoholic hepatitis. [employer] has become aware of sulfasalazine and sulfapyridine [...] AM EDT 12/10/2024 10:39 AM EDT Deysi Jon MD LAB BLOOD ORDERABLES Final Resul t [facility] [address] [phone] * Magnesium (12/10/2024 9:53 AM EDT) Only the most recent of9 resultswithin the time period is included. Magnesium 2.3 1.6 - 2.6 mg/dL 12/10/2024 11:[address] [facility] Blood Venipuncture / Unknown 12/10/2024 9:53 AM EDT 12/10/2024 10:39 AM EDT Deysi Jon MD LAB BLOOD ORDERABLES Final Resul t [facility] [address] [phone] * XR chest AP portable (12/10/2024 9:10 AM EDT) Only the most recent of7 resultswithin the time period is included. Anatomical Region Laterality Modality Chest X-Ray 12/10/2024 [...] Keenan. Transcribed by Haven Henderson PA-C. Blanka Alvarez MD IMG DIAGNOSTIC IMAGING ORDERA BLES Final Result * (ABNORMAL) ABG (12/10/2024 6:42 AM EDT) Only the most recent of7 resultswithin the time period is included. pH, Arterial 7.30(L) 7.35 - 7.45 12/10/2024 6:[address] [facility] pCO2, Arterial 49(H) 35 - 45 mm Hg 12/10/2024 6:[address] [facility] pO2, Arterial 119(H) 80 - 100 mm Hg 12/10/2024 6:[address] [facility] HCO3, Arterial 24 20 - 26 mmol/L 12/10/2024 6:[address] [facility] Base Excess, Arterial -2.4(L) -2.0 - 2.0 mmol/L 12/10/2024 6:[address] [facility] O2 Sat, Arterial >99.2 95.0 - 100.0 % 12/10/2024 6:[address] [facility] Comment:notified at read-anny k verification CTO2 ARTERIAL 11.9 mmol/L 12/10/2024 6:[address] [facility] THB ARTERIAL 8.5(L) 12.0 - 18.0 g/dL 12/10/2024 6:[address] [facility] SJ COLLECTION SITE Left Radial 12/10/2024 6:[address] [facility] Arterial Puncture Yes 12/10/2024 6:[address] [facility] Blood Gas O2 Delivery Device Cannula 12/10/2024 6:[address] [facility] Oxygen Flow Rate 4 12/11/19 6:[address] [facility] Blood Gas PT Temperature C 37.0 12/10/2024 6:[address] [facility] Sen's Test Acceptable 12/10/2024 6:[address] [facility] ABG Number of Draw Attempts 1 12/10/2024 6:[address] [facility] FIO2 12/10/2024 6:[address] [facility] Blood Gas Temperature Corrected Results No No 12/10/2024 6:[address] [facility] Blood, Arterial Collection / Unknown 12/10/2024 6:42 AM EDT 12/10/2024 6:51 AM EDT us Blanka Alvarez MD LAB BLOOD ORDERABLES Final Re sult [facility] [address] [phone] * (ABNORMAL) CBC - Hemogram (SJ-BKR) (12/09/2024 3:38 AM EDT) Only the most recent of8 resultswithin the time period is included. WBC 2.4(L) 4.0 - 10.0 K/ L 12/09/2024 3:[address] [facility] RBC 2.83(L) 3.93 - 5.22 M/ L 12/09/2024 3:[address] [facility] Hemoglobin 8.5(L) 11.2 - 15.7 GM/DL 12/09/2024 3:[address] [facility] Hematocrit 28.0(L) 34.1 - 44.9 % 12/09/2024 3:[address] [facility] MCV 99(H) 79 - 95 fL 12/09/2024 3:[address] [facility] MCH 30.0 25.6 - 32.2 pg 12/09/2024 3:[address] [facility] MCHC 30.4(L) 32.2 - 35.5 GM/DL 12/09/2024 3:[address] [facility] RDW 17.2(H) 11.7 - 14.4 % 12/09/2024 3:[address] [facility] Platelets 55(L) 140 - 375 K/CU MM 12/09/2024 3:[address] [facility] MPV 11.5 9.4 - 12.3 fL 12/09/2024 3:[address] [facility] Blood Venipuncture / Unknown 12/09/2024 3:38 AM EDT 12/09/2024 3:45 AM EDT us Mary Carmen Mcfadden MD LAB BLOOD ORDERABLES Final Resu lt [facility] [address] [phone] * Erythropoietin(SENDOUT) (12/07/2024 3:59 AM EDT) Erythropoietin 19 4 - 27 mU/mL 12/08/2024 2:30 PM EDT [employer] Comment: INTERPRETIVE INFORMATION: Erythropoietin Normal serum concentrations [...] may benefit from therapy with recombinant EPO ([facility] [id number],1989). Performed By: [facility] [address] [place] [address] Garnett Machine Operator Helper: Lalo Mortensen MD, PhD CLIA Number: [id number] Blood Venipuncture / Unknown 12/07/2024 3:59 AM EDT 12/07/2024 4:11 AM EDT us Ariel Mills MD LAB BLOOD ORDERABLES Final Res ult [facility] [address] [place] [address], [facility] [phone] * Ammonia (12/07/2024 3:59 AM EDT) Only the most recent of8 resultswithin the time period is included. [facility] Ammonia 44 18 - 72 mol/L 12/07/2024 4:[address] [facility] Blood Venipuncture / Unknown 12/07/2024 3:59 AM EDT 12/07/2024 4:22 AM EDT Timothy Bai MD LAB BLOOD ORDERABLES Final Result Performing Organization Address City/[facility]/ZIP Co de Phone Number [facility] [address] [phone] * (ABNORMAL) Ferritin (12/06/2024 3:13 AM EDT) Only the most recent of2 resultswithin the time period is included. Ferritin 256.82(H) 4.63 - 204.00 ng/mL 12/06/2024 8:[address] [facility] Blood Venipuncture / Unknown 12/06/2024 3:13 AM EDT 12/06/2024 3:50 AM EDT Ariel Mills MD LAB BLOOD ORDERABLES Final Res ult Performing Organization Address [facility] Co de Phone Number [facility] [address] [phone] * (ABNORMAL) Hemoglobin (12/05/2024 3:36 PM EDT) Only the most recent of11 resultswithin the time period is included. Hemoglobin 8.1(L) 11.2 - 15.7 GM/DL 12/05/2024 3:[address] [facility] Blood Venipuncture / Unknown 12/05/2024 3:36 PM EDT 12/05/2024 3:47 PM EDT us Timothy Bai MD LAB BLOOD ORDERABLES Final Result [facility] [address] [phone] * ANCA Vasculitis Profile(SENDOUT) (12/04/2024 8:15 AM EDT) Myeloperoxidase (MPO) Ab, IgG 0 0 - 19 AU/mL 12/07/2024 8:52 AM EDT [employer] Comment: INTERPRETIVE INFORMATION: Myeloperoxidase Abs, IgG 19 AU/mL or Less ......... Negative 20-25 AU/mL .............. Equivocal 26 AU/mL or Greater ...... Positive Approximately 90% of patients with a P-ANCA pattern by IFA have antibodies specific for MPO. Serine Proteinase 3 (PR3) Ab, IgG 0 0 - 19 AU/mL 12/07/2024 8:52 AM EDT [employer] Comment: INTERPRETIVE INFORMATION: Serine Proteinase 3, IgG 19 AU/mL or Less ........ Negative 20-25 AU/mL ............. Equivocal 26 AU/mL or Greater ..... Positive Approximately 85% of patients with a C-ANCA pattern by IFA have antibodies specific for PR3. ANCA IFA Titer <1:20 <1:20 12/07/2024 8:52 AM EDT [facility] ANCA IFA Pattern None Detected None Detected 12/07/2024 8:52 AM EDT [employer] Comment: INTERPRETIVE INFORMATION: ANCA IFA Pattern Neutrophil Cytoplasmic Antibodies (C-ANCA = granular cytoplasmic staining, P-ANCA = perinuclear staining) are found in the serum of over 90 percent of patients with certain necrotizing systemic vasculitides, and usually in less than 5 percent of patients with collagen vascular disease or arthritis. Performed By: [facility] [address] [place] [address] Garnett Machine Operator Helper: Lalo Mortensen MD, PhD CLIA Number: [id number] Blood Venipuncture / Unknown 12/04/2024 8:15 AM EDT 12/04/2024 8:32 AM EDT us Hema Cervantes MD LAB BLOOD ORDERABLES Final Re sult [facility] [address] [place] [address], [facility] [phone] * JEANA Reflexive Profile(SENDOUT) (12/04/2024 8:15 AM EDT) Anti-Nuclear Ab (JEANA), IgG by SHARON None Detected None Detected 12/06/2024 3:51 PM EDT [employer] Comment: No Anti-Nuclear Antibodies (JEANA) detected by SHARON. The Extractable Nuclear Antigen Antibodies (LAB SCIENTIST, Llanes, SSA 52, SSA 60, Scleroderma, Lilia-1 and SSB) and Double Stranded DNA (dsDNA) Antibody, IgG will not be performed. If suspicion of connective tissue disease is strong, and JEANA is negative by SHARON, consider testing for JEANA by IFA ([id number]). INTERPRETIVE INFORMATION: Anti-Nuclear Antibodies (JEANA), IgG by SHARON Antinuclear Antibodies (JEANA), IgG by SHARON: JEANA specimens are screened using enzyme-linked immunosorbent assay (SHARON) methodology. All SHARON results reported as Detected are further tested by indirect fluorescent assay (IFA) using HEp-2 substrate with an IgG-specific conjugate. The JEANA SHARON screen is designed to detect antibodies against dsDNA, histones, SS-A (Ro), SS-B (La), Llanes, Llanes/LAB SCIENTIST, Scl-70, Lilia-1, centromeric proteins, other antigens extracted from the HEp-2 cell nucleus. JEANA SHARON assays have been reported to have lower sensitivities than JEANA IFA for systemic autoimmune rheumatic diseases (SARD). Negative results do not necessarily rule out SARD. Performed By: [facility] [address] [place] [address] Garn[employer] Machine Operator Helper: Lalo Mortensen MD, PhD CLIA Number: [id number] Blood Venipuncture / Unknown 12/04/2024 8:15 AM EDT 12/04/2024 8:32 AM EDT us Hema Cervantes MD LAB BLOOD ORDERABLES Final Re sult [facility] [address] [place] [address], [facility] [phone] * Phosphorus (12/04/2024 3:34 AM EDT) Pathologist [facility] Phosphorus 4.2 2.5 - 4.5 mg/dL 12/04/2024 4:[address] [facility] Blood Venipuncture / Unknown 12/04/2024 3:34 AM EDT 12/04/2024 3:41 AM EDT us Kirstymalinda Tuttle APRN LAB BLOOD ORDERABLES Final R esult Performing Organization Address City/[facility]/ZIP Co de Phone Number [facility] [address] [phone] * Creatine Kinase (CK) (12/03/2024 7:39 AM EDT) Only the most recent of2 resultswithin the time period is included. Total CK 55 29 - 168 U/L 12/03/2024 6:[address] [facility] Blood Venipuncture / Unknown 12/03/2024 7:39 AM EDT 12/03/2024 5:52 PM EDT us Hema Cervantes MD LAB BLOOD ORDERABLES Final Re sult Performing Organization Address City/[facility]/ZIP Co de Phone Number [facility] [address] [place] [address] * Transfuse RBC (12/02/2024 5:03 PM EDT) Only the most recent of2 resultswithin the time period is included. us Timothy Bai MD FS_MODEL_IP_BLOOD TRANSFUS ION ORDERABLES Final Result * CT bone marrow biopsy (12/02/2024 12:24 [...] Pancytopenia. ATTENDING RADIOLOGIST: Dr. Haseeb Gil. PHYSICIAN PLUMBING INSTALLER: Sandra Ramsey PA-C PROCEDURE: After informed consent [...] Pancytopenia. ATTENDING RADIOLOGIST: Dr. Haseeb Gil. PHYSICIAN PLUMBING INSTALLER: Sandra Ramsey PA-C PROCEDURE: After informed consent [...] Haseeb Gil. Transcribed by Sandra Ramsey PA-C. Rommel Batista MD IM CT ORDERABLES Final Result * [facility] BONE MARROW SMEAR, ASPIRATION, AND STAIN (12/02/2024 12:06 PM EDT) AP RESULT See Note: [facility] Comment: [facility] [address] [place] [address] or [phone] Joe Carlos M.D., Pallet Rectifier PATIENT NAME LABORATORY NO. 170MARY PETERSEN. [id number] [facility] MAIN AGE SEX SSN CLIENT REF # [id number] F [id number] 1 [place] [address] REQUESTING Aleksandr ATTENDING Aleksandr. COPY TO.. CLAIREROMMEL SIMS DATE COLLECTED DATE RECEIVED DATE REPORTED 12/02/2024 12/02/2024 12/06/2024 ADDENDUM PRESENT ADDENDUM: Cytogenetics shows a normal female karyotype, 46,XX[20]. The original diagnosis remains unchanged. Verified by Heydi Mak M.D., MPH on 12/13/2024 Professional interpretation rendered by Heydi Mak M.D., MPH at [facility], [address] [place] [address]. DIAGNOSIS: PERIPHERAL SMEAR , BONE MARROW ASPIRATION [...] CD38, CD45, CD56, CD57, CD117, CD123, HLA-DR, [place], and Lambda. These tests use analyte specific [...] rendered by Heydi Mak M.D., MPH at [facility], [employer], [address] [place] [address]. GROSS DESCRIPTION: A. Received 1 peripheral blood smear slide for review. B. Received 5 bone marrow aspirate smear slides for review. 4 additional bone marrow aspirate smear slides made at [facility]. C. Received in a purple top [...] BY: Heydi Mak M.D., MPH CPT CODES: 25177, 2FLP, 59823, 57593v0, 88327g5, 80523, 61967, [id number] Bone Marrow BONE MARROW STRUCTURE / Unknown 12/02/2024 12:06 PM EDT us Rommel Batista MD PATHOLOGY/CYTOLOGY ORDERABLES Edited Result - Final [facility] [address] * Prepare RBC: 1 Units (12/02/2024 9:36 AM EDT) Only the most recent of2 resultswithin the time period is included. Issue Date/Time [id number] [facility] BLOOD [facility] (CT) Product Identification Red Blood Cells [facility] (CT) Product Code [id number] [facility]) Status Information Transfused [facility]) Unit Number [id number] [facility] (CT) Blood Type 5100 [facility] (CT) Cross Match Results Compatible [facility] (CT) us Timothy Bai MD FS_MODEL_IP_BLOOD BANK PRO DUCT ORDERABLES Final Result [facility] (CT) [address] [phone] * (ABNORMAL) Hemoglobin and hematocrit (12/02/2024 7:40 AM EDT) Hemoglobin 7.4(L) 11.2 - 15.7 GM/DL 12/02/2024 9:[address] [facility] Hematocrit 23.4(L) 34.1 - 44.9 % 12/02/2024 9:[address] [facility] Blood Venipuncture / Unknown 12/02/2024 7:40 AM EDT 12/02/2024 7:47 AM EDT us Timothy Bai MD LAB BLOOD ORDERABLES Final Result [facility] 1 [place] [address], [facility] [phone] * AN SINGLE LUMEN INTUBATION (12/01/2024 9:01 AM EDT) Narrative Rolo Stauffer CRNA - 12/01/2024 9:01 AM EDT Rolo [...] approaches attempted: 0 Additional Comments ATRAUMATIC INTUBATION us Ashtyn Sanchez MD ANESTHESIA ORDERABLES F inal Result * Type and Screen (12/01/2024 7:08 AM EDT) ABO/Rh O Positive 12/01/2024 4:53 AM EDT [facility] (CT) Antibody Screen Negative 12/01/2024 4:53 AM EDT [facility] BLOOD [facility] (CT) HISTCHK HIST CHECK PERFORMED 12/01/2024 4:53 AM EDT [facility] (CT) Blood Venipuncture / Unknown 12/01/2024 7:08 AM EDT 12/01/2024 7:15 AM EDT us Denilson Arnauddeann VU [facility] BLOOD BANK TEST ORDERABLES Final Result [facility] (CT) 1 [facility] [place] [address], [facility] [phone] * ABO/RH Confirmation/Retype (12/01/2024 4:06 AM EDT) RETYPE O Positive 12/01/2024 5:15 AM EDT [facility] (CT) Comment:[id number] Blood Venipuncture / Unknown 12/01/2024 4:06 AM EDT 12/01/2024 5:14 AM EDT Timothy Bai MD [facility] BLOOD BANK TEST ORDERA BLES Final Result Performing Organization Address City/[facility]/ZIP Co de Phone Number [facility] (CT) 1 [facility] [place] [address], [facility] [phone] * Ultrasound renal limited (11/30/2024 4:19 PM [...] IMG US ORDERABLES Final Res ult * DIFFERENTIAL, BODY FLUID (11/30/2024 4:03 PM EDT) Neutrophils Fluid 5 0 - 25 % 025 8:[address] [facility] Lymphocytes Fluid 46 % 025 8:[address] [facility] Unidentified Mononuclear Cells BF 49 0 - 0 % 11/30/2024 8:[address] [facility] Peritoneal Fluid BODY FLUID / Unknown 11/30/2024 4:03 PM EDT 11/30/2024 4:33 PM EDT Huey Hurtado MD BODY FLUIDS AND STOOLS ORDERABLE S Final Result [facility] [address] [phone] * [facility] Non-Qa Tester Cytology (11/30/2024 4:03 PM EDT) AP RESULT See Note: PATHOLOGY [facility]Y LAB[facility] Comment: [facility] [address] [place] [address] or [phone] Joe Carlos M.D., Pallet Rectifier PATIENT NAME LABORATORY NO. MARY OLIVA. [id number] AGE SEX SSN CLIENT REF # [facility] 64 1960 F [id number] 1 [facility] REQUESTING Aleksandr ATTENDING [place] [address] HUEY HURTADO DATE COLLECTED DATE RECEIVED DATE REPORTED 11/30/2024 12/01/2024 12/02/2024 DIAGNOSIS: PERITONEAL FLUID: Negative for malignant cells. MICROSCOPIC DESCRIPTION: Scattered mesothelial cells and chronic inflammatory cells are present. Professional interpretation rendered by John Sanchez M.D., F.C.A.P. at [facility], [address] [place] [address]. CLINICAL HISTORY: Melena Anasarca Acute renal failure SPECIMENS SUBMITTED: PERITONEAL FLUID GROSS SPECIMEN DESCRIPTION: 40 ccs of hazy, light yellow fluid, scant sediment, received in fixative ThinPrep slides prepared. Cell block has been examined. UNDERWRITING SALES REPRESENTATIVE: SVITLANA HERNANDEZ (ASCP) REVIEWED, DIAGNOSED AND ELECTRONICALLY SIGNED BY: John Sanchez M.D., F.C.A.P. CPT CODES: 58450, 37442 Peritoneal Fluid BODY FLUID / Unknown 11/30/2024 4:03 PM EDT Huey Hurtado MD PATHOLOGY/CYTOLOGY ORDERABLES Fi nal Result [facility] [address] [place] [address] * Body Fluid/CSF - Path Review () (11/30/2024 4:03 PM EDT) SENT TO PATHOLOGY FOR REVIEW Yes 12/03/2024 6:[address] [facility] Scan Result Mesothelial cells. MD German 12/02/2024 12/03/2024 6:[address] [facility] Peritoneal Fluid BODY FLUID / Unknown 11/30/2024 4:03 PM EDT 11/30/2024 4:33 PM EDT Huey Hurtado MD BODY FLUIDS AND STOOLS ORDERABLE S Final Result Performing Organization Address [facility] Co de Phone Number [facility] [address] [phone] * Glucose, body fluid (11/30/2024 4:03 PM EDT) Glucose, Body Fluid 107 See Comment mg/dL 12/01/2024 7:[address] [facility] BODY FLUID TYPE Peritoneal 12/01/2024 7:[address] [facility] Body Fluid PERITONEAL FLUID / Unknown 11/30/2024 4:03 PM EDT 12/01/2024 6:[address] [facility] - 12/01/2024 7:10 AM EDT This test has been modified from the communications attendant's instructions and its performance characteristics were determined by the laboratory. The reference intervals and other method performance specifications are unavailable for this test. It is recommended to interpret body fluid concentrations in comparison with the corresponding serum or plasma concentrations and to integrate test results into the clinical context. Timothy Bai MD BODY FLUIDS AND STOOLS ORD ERABLES Final Result Performing Organization Address City/[facility] Co de Phone Number [facility] [address] [phone] * Anaerobic Culture (11/30/2024 4:03 PM EDT) Result No Anaerobic growth 12/05/2024 6:[address] [facility] Peritoneal Fluid BODY FLUID / Unknown 11/30/2024 4:03 PM EDT 11/30/2024 4:[address] [facility] - 12/05/2024 6:34 AM EDT Specimen Description: peritoneal fluid us Huey Hurtado MD MICROBIOLOGY - GENERAL ORDERABLE S Final Result [facility] [address] [phone] * Body Fluid Culture + Gram Stain (11/30/2024 4:03 PM EDT) Result No growth 12/03/2024 9:[address] [facility] Gram Stain Result No organisms seen 12/03/2024 9:[address] [facility] Gram Stain Result No cells seen 12/03/2024 9:[address] [facility] Peritoneal Fluid BODY FLUID / Unknown 11/30/2024 4:03 PM EDT 11/30/2024 4:[address] [facility] - 12/03/2024 9:07 AM EDT Specimen Description: peritoneal fluid us Huey Hurtado MD MICROBIOLOGY - GENERAL ORDERABLE S Final Result Performing Organization Address [facility] [place]/[facility]/ZIP Co de Phone Number [facility] [address] [phone] * (ABNORMAL) Body fluid cell count with differential (11/30/2024 4:03 PM EDT) Appearance Cloudy(A) Clear 11/30/2024 8:[address] [facility] Color Yellow 11/30/2024 8:[address] [facility] BODY FLUID TYPE Peritoneal 11/30/2024 8:[address] [facility] Auto WBC/Nucleated Cells BF 85 /uL 11/30/2024 8:[address] [facility] Comment: Please refer to specific WBC/Nucleated Cell Count Body Fluid reference ranges below: For Pleural: 0-1000 Peritoneal: 0-1000 Pericardial:0-1000 Synovial: 0-200 Auto RBC BF <3,000 /uL 11/30/2024 8:[address] [facility] Comment: Please refer to specific RBC Cell Count Body Fluid reference ranges below: Pleural: 0-10,000 Peritoneal: 0-10,000 Pericardial:0-10,000 Synovial:0-30 Peritoneal Fluid BODY FLUID / Unknown 11/30/2024 4:03 PM EDT 11/30/2024 4:[address] [facility] - 11/30/2024 8:49 PM EDT There is normally no readily obtainable pleural, peritoneal and pericardial fluid, hence normal elements for these potential fluids are not defined. us Huey Hurtado MD BODY FLUIDS AND STOOLS ORDERABLE S Final Result Performing Organization Address [facility] [place]/[facility]/ZIP Co de Phone Number [facility] [address] [place] [address] * Protein, body fluid (11/30/2024 4:03 PM EDT) Protein, Fluid 1.9 See Comment g/dL 12/01/2024 7:[address] [facility] BODY FLUID TYPE Peritoneal 12/01/2024 7:[address] [facility] Body Fluid PERITONEAL FLUID / Unknown 11/30/2024 4:03 PM EDT 12/01/2024 6:[address] [facility] - 12/01/2024 7:10 AM EDT This test has been modified from the communications attendant's instructions and its performance characteristics were determined [...] ORD ERABLES Final Result Performing Organization Address [facility] [place]/[facility]/ZIP Co de Phone Number [facility] [address] [place] [address], [facility] [phone] * Lactate dehydrogenase (LDH), body fluid (11/30/2024 4:03 PM EDT) LDH, Fluid 71 See Comment U/L 11/30/2024 6:[address] [facility] BODY FLUID TYPE Peritoneal 11/30/2024 6:[address] [facility] Peritoneal Fluid BODY FLUID / Unknown 11/30/2024 4:03 PM EDT 11/30/2024 4:[address] [facility] - 11/30/2024 6:19 PM EDT This test has been modified from the communications attendant's instructions and its performance characteristics were determined by the laboratory. The reference intervals and other method performance specifications are unavailable for this test. It is recommended to interpret body fluid concentrations in comparison with the corresponding serum or plasma concentrations and to integrate test results into the clinical context. us Huey Hurtado MD BODY FLUIDS AND STOOLS ORDERABLE S Final Result [facility] [address] [phone] * (ABNORMAL) Urinalysis, Reflex Microscopic and Culture If Indicated (11/30/2024 11:35 AM EDT) Color, UA Light Yellow 11/30/2024 12:[address] [facility] Clarity, UA Turbid(A) Clear 11/30/2024 12:[address] [facility] Specific [place], UA 1.011 1.005 - 1.030 11/30/2024 12:[address] [facility] pH, UA 5.0(L) 6.0 - 8.0 11/30/2024 12:[address] [facility] Leukocytes, UA 500 Félix/uL(A) Negative 11/30/2024 12:[address] [facility] Nitrite, UA Negative Negative 11/30/2024 12:[address] [facility] Protein, UA Negative Negative 11/30/2024 12:[address] [facility] Glucose, UA Normal Normal 11/30/2024 12:[address] [facility] Ketones, UA Negative Negative 11/30/2024 12:[address] [facility] Bilirubin, UA Negative Negative 11/30/2024 12:[address] [facility] Blood, UA Negative Negative 11/30/2024 12:[address] [facility] Urobilinogen, UA Normal Normal 11/30/2024 12:[address] [facility] Specimen Source Urine, Clean Catch 11/30/2024 12:[address] [facility] Urine URINE SPECIMEN COLLECTION, CLEAN CATCH / Unknown 11/30/2024 11:35 AM EDT 11/30/2024 11:41 AM EDT us Destiney Llanes MERCHANDISE CARRIER URINE ORDERABLES Final Resu lt [facility] [address] [phone] * (ABNORMAL) Urinalysis Microscopic Only (11/30/2024 11:35 AM EDT) WBC, UA 21-50(A) None Seen /HPF 11/30/2024 12:[address] [facility] RBC, UA 0-2(A) None Seen /HPF 11/30/2024 12:[address] [facility] Bacteria, UA 1+(A) None Seen, Trace 11/30/2024 12:[address] [facility] Mucus 1+(A) None Seen 11/30/2024 12:[address] [facility] SQUAMOUS EPITHELIAL 3-5(A) None Seen /HPF 11/30/2024 12:[address] [facility] HYALINE CASTS 21-50(A) None Seen /LPF 11/30/2024 12:[address] [facility] Urine URINE SPECIMEN COLLECTION, CLEAN CATCH / Unknown 11/30/2024 11:35 AM EDT 11/30/2024 11:41 AM EDT us Destiney Llanes MERCHANDISE CARRIER URINE ORDERABLES Final Resu lt [facility] [address] [phone] * Urea Nitrogen, random urine (11/30/2024 11:35 AM EDT) Urea Nitrogen, Ur 305 mg/dL 11/30/2024 12:[address] [facility] Comment:Reference Range not established Urine 11/30/2024 11:3 5 AM EDT 11/30/2024 12:15 PM EDT Hill Boo MD URINE ORDERABLES Final Result Performing Organization Address [facility] [place]/[facility] Co de Phone Number [facility] [address] [phone] * Protein / creatinine ratio, urine (11/30/2024 11:35 AM EDT) Creatinine, Ur 62.00 47.00 - 110.00 mg/dL 11/30/2024 12:[address] [facility] Protein Creatinine Ratio 0.19 <=0.20 11/30/2024 12:[address] [facility] Protein, Urine 12 1 - 14 mg/dL 11/30/2024 12:[address] [facility] Urine 11/30/2024 11:3 5 AM EDT 11/30/2024 12:15 PM EDT us Hill Boo MD URINE ORDERABLES Final Result Performing Organization Address [facility] [place]/[facility] Co de Phone Number [facility] [address] [phone] * Sodium, random urine (11/30/2024 11:35 AM EDT) Sodium Urine 83 See Comment meq/L 11/30/2024 12:[address] [facility] Comment:Reference Range not established Urine 11/30/2024 11:3 5 AM EDT 11/30/2024 12:15 PM EDT us Hill Boo MD URINE ORDERABLES Final Result [facility] [address] [phone] * Urine Culture (11/30/2024 11:35 AM EDT) Result Recollect Specimen - 3 or more organisms suggests contamination 12/01/2024 6:[address] [facility] Urine URINE SPECIMEN COLLECTION, CLEAN CATCH / Unknown 11/30/2024 11:35 AM EDT 11/30/2024 11:41 AM EDT Destiney Llanes MERCHANDISE CARRIER MICROBIOLOGY - GENERAL ORDE YAKELIN Final Result [facility] [address] [phone] * (ABNORMAL) Monoclonal Protein Study, Expanded Panel(SENDOUT) [...] 408 mg/dL 12/03/2024 12:57 PM EDT [facility] Immunoglobulin M 126 35 - 263 mg/dL 12/03/2024 12:57 PM EDT [facility] Monoclonal Protein Not Applicable <=0.00 g/dL 12/03/2024 12:57 PM EDT [facility] [place] Qnt Free Light Chains 173.10(H) 3.30 - 19.40 mg/L 12/03/2024 12:57 PM EDT [facility] Comment: INTERPRETIVE INFORMATION: [place] Qnt Free Light Chains Undetected antigen excess is a rare event but cannot be excluded. Free light chain results should always be interpreted in conjunction with other clinical and laboratory findings. [place] Qnt Free Light Chains 123.84(H) 5.71 - 26.30 mg/L 12/03/2024 12:57 PM EDT [facility] Comment: INTERPRETIVE INFORMATION: [place] Qnt Free Light Chains Undetected antigen excess is a rare event but cannot be excluded. Free light chain results should always be interpreted in conjunction with other clinical and laboratory findings. [place]/Lambda Free Light Chain Ratio 1.40 0.26 - 1.65 12/03/2024 12:57 PM EDT [facility] SPEP/MAEGAN Interpretation See Note 12/03/2024 12:57 PM T [facility] Comment: Restricted band in the beta region [...] Serum See Note 12/03/2024 12:57 PM EDT [facility] Comment: Authorized individuals can access the [facility] Enhanced Report with an [facility] Connect account using the following link. Your local lab can assist you in obtaining the patient report if you don't have a Connect account. [email or web address] Performed By: [facility] [address] [place] [id number] [place] Machine Operator Helper: Lalo Mortensen MD, PhD CLIA Number: [id number] Blood Venipuncture / Unknown 11/30/2024 11:01 AM EDT 11/30/2024 12:17 PM EDT Hill Boo MD LAB BLOOD ORDERABLES Final Resu lt Performing Organization Address [facility] [place]/[facility] Co de Phone Number [facility] GCW [address] [place] [address] * Alpha Fetoprotein Tumor Marker(SENDOUT) (11/30/2024 11:01 AM EDT) Alpha Fetoprotein Tumor Marker 2 0 - 9 ng/mL 12/01/2024 3:41 PM EDT [facility] Comment: INTERPRETIVE INFORMATION: Alpha Fetoprotein Tumor Marker The Stefany Clear Access DxI AFP method is used. Results [...] reference intervals for this test in the [facility] Test Directory ([facility]). Performed By: [facility] [address] [place] [address] Garnett Machine Operator Helper: Lalo Mortensen MD, PhD CLIA Number: [id number] Blood Venipuncture / Unknown 11/30/2024 11:01 AM EDT 11/30/2024 11:06 AM EDT Destiney Llanes APRN LAB BLOOD ORDERABLES Final Result Performing Organization Address [facility] [place]/[facility] Co de Phone Number [address] [phone] * (ABNORMAL) Vitamin D, 25-Hydroxy (11/30/2024 8:20 AM EDT) Vitamin D 25-Hydroxy 22.0(L) 30 - 80 ng/mL 11/30/2024 9:[address] [facility] Blood Venipuncture / Unknown 11/30/2024 8:20 AM EDT 11/30/2024 9:08 AM EDT us Timothy Bai MD LAB BLOOD ORDERABLES Final Result [facility] [address] [phone] * Hemoglobin A1c (11/30/2024 8:20 AM EDT) Hemoglobin A1C 4.9 4.0 - 5.6 % 11/30/2024 9:[address] [facility] Comment: Hemoglobin A1C levels are related to mean glucose during the preceding 2-3 months. Less than 7% demonstrates glycemic control in diabetic patients. Hemoglobin AlC % Suggested Diagnosis > or = 6.5 Diabetic 5.7 - 6.4 Prediabetic <5.7 Non-diabetic eAVG Glucose 93.93 70 - 126 mg/dL 11/30/2024 9:[address] [facility] Blood Venipuncture / Unknown 11/30/2024 8:20 AM EDT 11/30/2024 9:07 AM EDT us Huey Hurtado MD LAB BLOOD ORDERABLES Final Resul t [facility] [address] [phone] * ECHO COMPLETE (DOPPLER / COLOR) WO CONTRAST (11/30/2024 7:50 AM EDT) Anatomical Region Laterality Modality Heart Vascular Ultraso und 11/30/2024 7:25 AM EDT Narrative 11/30/2024 10:46 AM EDT TRANSTHORACIC ECHOCARDIOGRAPHY REPORT Demographics Patient Name: RIN JONES : 1960 Age: 64 year(s) Corporate ID Number: [id number] Gender Female Clinical Unit Educator: Giovanna Rock Height: 67 inches [facility] Referring Physician: HUEY HURTADO Weight: 225 pounds Interpreting JESSICA RAYMOND MD BMI: 35.24 kg/m^2 Physician: Date of Service: 11/30/2024 Blood Pressure: 118/59 mmHg Room Number: 579 Type of Study: TTE procedure: ECHO COMPLETE (DOPPLER / COLOR) W OR WO CONTRAST. Patient Status: Routine IP [facility] History/Tech Notes: Indication: [...] 1.35 m/s E/A ratio: 0.97 m/s Volume touzeiapv995.99 LV length: 8.51 cm ml Volume nktblzju25.96 ml LVOT diameter: 1.79 cm Normal sized [...] Valve TR velocity: 2.51 m/s TR gradient: 25.18082 mmHg Estimated RAP: 3 mmHg RVSP: 28.12 [...] 1960 Age: 64 year(s) Corporate ID Number: [id number] Gender Female Clinical Unit Educator: Giovanna Rock Height: 67 inches [facility] Referring Physician: HUEY HURTADO Weight: 225 pounds Interpreting JESSICA RAYMOND MD BMI: 35.24 kg/m^2 Physician: Date of Service: 11/30/2024 Blood Pressure: 118/59 mmHg Room Number: 579 Type of Study: TTE procedure: ECHO COMPLETE (DOPPLER / COLOR) W OR WO CONTRAST. Patient Status: Routine IP Study Location: [facility] Quality: Adequate visualization History/Tech Notes: Indication: [...] 1.35 m/s E/A ratio: 0.97 m/s Volume pxzlakjcz649.99 LV length: 8.51 cm ml Volume hryoqwpn59.96 ml LVOT diameter: 1.79 cm Normal sized [...] Valve TR velocity: 2.51 m/s TR gradient: 25.52942 mmHg Estimated RAP: 3 mmHg RVSP: 28.12 [...] MD CV ECHO ORDERABLES Final Result * Blood Culture (11/30/2024 3:42 AM EDT) Only the most recent of2 resultswithin the time period is included. Result No growth in 5 days 12/05/2024 5:[address] [facility] Blood ENTIRE RIGHT UPPER ARM / Unknown Venipuncture / Unknown 11/30/2024 3:42 AM EDT 11/30/2024 4:09 AM EDT us Huey Hurtado MD MICROBIOLOGY - GENERAL ORDERABLE S Final Result Performing Organization Address [facility] [place]/[facility]/ZIP Co de Phone Number [facility] [address] [phone] * Lactic Acid with reflex (11/30/2024 3:40 AM EDT) Lactic Acid Level (mmol/L) 0.9 0.5 - 2.2 mmol/L 11/30/2024 5:[address] [facility] Blood Venipuncture / Unknown 11/30/2024 3:40 AM EDT 11/30/2024 4:10 AM EDT us Huey Hurtado MD LAB BLOOD ORDERABLES Final Resul t Performing Organization Address [facility] [place]/State/ZIP Co de Phone Number [facility] [address] [phone] * Procalcitonin (11/30/2024 3:40 AM EDT) Procalcitonin 0.26 See Comment ng/mL 11/30/2024 5:[address] [facility] Comment: Sepsis comment <0.5 Antibiotics Discouraged [...] Resul t Performing Organization Address [facility] [place]/[facility] Co de Phone Number [facility] [address] [phone] * (ABNORMAL) Iron and TIBC (11/30/2024 3:40 AM EDT) Iron 63 50 - 170 ug/dL 11/30/2024 6:[address] [facility] TIBC 183(L) 250 - 435 ug/dL 11/30/2024 6:[address] [facility] % Saturation 34 % 11/30/2024 6:[address] [facility] UIBC 120 11/30/2024 6:[address] [facility] Blood Venipuncture / Unknown 11/30/2024 3:40 AM EDT 11/30/2024 4:09 AM EDT us Rommel Batista MD LAB BLOOD ORDERABLES Final Res ult Performing Organization Address [facility] [place]/[facility]/ZIP Co de Phone Number [facility] [address] [phone] * aPTT (11/30/2024 3:40 AM EDT) aPTT 27.7 22.0 - 32.0 seconds 11/30/2024 4:[address] [facility] Blood Venipuncture / Unknown 11/30/2024 3:40 AM EDT 11/30/2024 4:10 AM EDT us Huey Hurtado MD LAB BLOOD ORDERABLES Final Resul t Performing Organization Address [facility] [place]/[facility] Phone Number [facility] [address] [phone] * (ABNORMAL) Prothrombin time/INR (11/30/2024 3:40 AM EDT) Protime 12.9(H) 9.0 - 12.0 seconds 11/30/2024 4:[address] [facility] INR 1.17(H) 0.80 - 1.10 11/30/2024 4:[address] [facility] Comment: Recommended therapeutic ranges using International [...] Resul t Performing Organization Address [facility] [place]/[facility] Phone Number [facility] [address] [phone] * (ABNORMAL) Uric acid (11/30/2024 3:40 AM EDT) Uric Acid 11.2(H) 2.5 - 6.2 mg/dL 11/30/2024 12:[address] [facility] Blood Venipuncture / Unknown 11/30/2024 3:40 AM EDT 11/30/2024 4:09 AM EDT us Hill Boo MD LAB BLOOD ORDERABLES Final Resu lt Performing Organization Address City/[facility]/ZIP Co de Phone Number [facility] [address] [phone] * (ABNORMAL) Lactate dehydrogenase (LDH) (11/30/2024 3:40 AM EDT) LDH 261(H) 125 - 220 U/L 11/30/2024 12:[address] [facility] Blood Venipuncture / Unknown 11/30/2024 3:40 AM EDT 11/30/2024 4:09 AM EDT us Hill Boo MD LAB BLOOD ORDERABLES Final Resu lt Performing Organization Address [facility] [place]/[facility] Co de Phone Number [facility] [address] [phone] * Iron, serum (11/30/2024 3:40 AM EDT) Iron 64 50 - 170 ug/dL 11/30/2024 8:[address] [facility] Blood Venipuncture / Unknown 11/30/2024 3:40 AM EDT 11/30/2024 4:09 AM EDT us Timothy Bai MD LAB BLOOD ORDERABLES Final Result Performing Organization Address City/[facility]/ZIP Co de Phone Number [facility] [address] [phone] * Folate, Serum (11/30/2024 3:40 AM EDT) Folate 7.0 7.0 - 31.4 ng/mL 11/30/2024 6:[address] [facility] Blood Venipuncture / Unknown 11/30/2024 3:40 AM EDT 11/30/2024 4:09 AM EDT us Rommel Batista MD LAB BLOOD ORDERABLES Final Res ult [facility] [address] [phone] * Vitamin B12 (11/30/2024 3:40 AM EDT) Vitamin B12 678 213 - 816 pg/mL 11/30/2024 8:[address] [facility] Blood Venipuncture / Unknown 11/30/2024 3:40 AM EDT 11/30/2024 4:09 AM EDT us Timothy Bai MD LAB BLOOD ORDERABLES Final Result Performing Organization Address [facility] [place]/[facility] Co de Phone Number [facility] [address] [phone] * EKG-SCANNED (11/30/2024) Only the most recent of3 resultswithin the time period is included. Narrative 11/30/2024 Ordered by an unspecified provider. us Default Scanning Provider SCAN ORDERS Final Result from Last 3 Months Insurance 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
--- OUTSIDE RECORDS SUMMARY | 2025-01-03 13:28 | XMS_ITS | Data Portability ---
Author Organization [place] - [facility] [place] [facility] [place] ADMIN Address [address] [place] [address] Care Team Providers Care Usability Architect Name Role Phone SARI MIX Primary Care Provider [phone] Assessment Encounter Date Assessment Date Assessment LastModified [...] History of colonoscopy: Colonoscopy performed 01/2021 at [facility] with polypectomy (TA). 1 year repeat was recommended but she states she did not follow-up. She has a history of anal soft tissue thickening that was previously being followed by Dr. Quiñonez. 3) Nausea/abdominal pain: Continue Zofran as needed. EGD/colonoscopy scheduled. [email or web address] Not available 05/14/2023 16:14:25 Plan of Treatment Reminders Order Date Submit Date Provider Last Modified By Organization Details Last Modified Time Details Appointments None recorded. Lab CBC 2022 023 [facility], [address], [address], [place], [address], 3 07:14:09 CMP, serum or plasma 2022 023 [facility], [address], [address], [place], [address], 3 07:14:08 PT/INR 2022 023 [facility], [address], [address], [place], [address], 3 07:14:10 afp (alpha-feto protein) tumor marker, serum or plasma 2022 023 [facility], [address], [address], [place], [address], 3 07:14:12 JEANA (antinuclea r antibodies) screen, serum 2022 023 [facility], [address], [address], [place], [address], 3 07:14:14 mitochondri al Ab, serum 2022 023 [email or web address] [facility], [address], [address], [place], [address], 3 08:37:53 smooth muscle Ab, serum 2022 023 [facility], [address], [place], [address], 3 07:14:11 igg, quantitativ e, serum 2022 023 [facility], [address], [address], [place], [address], 3 07:14:15 hepatitis B surface Ab, quantitativ e, serum 2022 023 [facility], [address], [address], [place], [address], 3 07:14:13 Referral None recorded. Procedures None recorded. Surgeries None recorded. Imaging US, liver 2022 023 [email or web address] [address], [place], [address], 15:31:08 Medication Orders Xifaxan 550 mg tablet 2022 023 [email or web address] [facility], [address] [facility] [address], [place], [place], [id number], 16:07:45 Patient TargetsNo targets recorded. Patient InstructionsNo instructions recorded. Reason for Referral None Reported. Results Created Date Observation Date Name Description Value Unit Range Abnormal Flag Note LastModifiedBy Organization Detail LastModifiedTime 05/14/2005/15/2023 COMP. METAB OLIC PANEL (14) glucose 292 mg/dL 70-99 above high normal Not Available [facility] ([facility] [place] [place] [facility] [address] [facility], [place], [address], 05/16/2023 07:14:08 05/14/2005/15/2023 COMP. METAB OLIC PANEL (14) BUN 39 mg/dL 8-27 above high normal Not Available [facility] ([facility] [place] [place] [facility] [address] [facility] [place], [address], 05/16/2023 07:14:08 05/14/20 23 05/15/2023 COMP. METAB OLIC PANEL (14) creatinine 1.73 mg/dL 0.57-1 .00 above high normal Not Available [facility] ([facility] [place] [place] [facility] [address] [facility] [place], [address], 05/16/2023 07:14:08 05/14/20 23 05/15/2023 COMP. METAB OLIC PANEL (14) eGFR 33 mL/mi n/1.7 3 >59 below low normal Not Available [facility] ([facility] [place] [place] [facility] [address] [facility] [place], [address], 05/16/2023 07:14:08 05/14/20 23 05/15/2023 COMP. METAB OLIC PANEL (14) BUN/creatini ne ratio 23 12-28 Not Available [facility] ([facility] [place] [place] [facility] [address] [facility] [place], [address], 05/16/2023 07:14:08 05/14/2005/15/2023 COMP. METAB OLIC PANEL (14) sodium 143 mmol/ L 134-14 4 Not Available [facility] ([facility] [place] [place] [facility] [address] [facility] [place], [address], 05/16/2023 07:14:08 05/14/20 23 05/15/2023 COMP. METAB OLIC PANEL (14) potassium 4.8 mmol/ L 3.5-5. 2 Not Available [facility] ([facility] [place] [place] [facility] [address] [facility] [place], [address], 05/16/2023 07:14:08 05/14/20 23 05/15/2023 COMP. METAB OLIC PANEL (14) chloride 103 mmol/ L 96-106 Not Available [facility] ([facility] [place] [place] [facility] [address] [facility] [place], [address], 05/16/2023 07:14:08 05/14/20 23 05/15/2023 COMP. METAB OLIC PANEL (14) carbon dioxide, total 28 mmol/ L 20-29 Not Available [facility] ([facility] [place] [place] [facility] [address] [facility], [place], [address], 05/16/2023 07:14:08 05/14/20 23 05/15/2023 COMP. METAB OLIC PANEL (14) calcium 9.2 mg/dL 8.7-10 .3 Not Available [facility] ([facility] [place] [place] [facility] [address] [facility], [place], [address], 05/16/2023 07:14:08 05/14/20 23 05/15/2023 COMP. METAB OLIC PANEL (14) protein, total 7.4 g/dL 6.0-8. 5 Not Available [facility] ([facility] [place] [place] [facility] [address] [facility], [place], [address], 05/16/2023 07:14:08 05/14/20 23 05/15/2023 COMP. METAB OLIC PANEL (14) albumin 4.1 g/dL 3.9-4. 9 Not Available [facility] ([facility] [place] [place] [facility] [address] [facility], [place], [address], 05/16/2023 07:14:08 05/14/20 23 05/15/2023 COMP. METAB OLIC PANEL (14) globulin, total 3.3 g/dL 1.5-4. 5 Not Available [facility] ([facility] [place] [place] [facility] [address] [facility], [place], [address], 05/16/2023 07:14:08 05/14/20 23 05/15/2023 COMP. METAB OLIC PANEL (14) A/G ratio 1.2 1.2-2. 2 Not Available [facility] ([facility] [place] [place] [facility] [address] [facility], [place], [address], 05/16/2023 07:14:08 05/14/20 23 05/15/2023 COMP. METAB OLIC PANEL (14) bilirubin, total 0.7 mg/dL 0.0-1. 2 Not Available [facility] ([facility] [place] [place] [facility] [address] [facility], [place], [address], 05/16/2023 07:14:08 05/14/20 23 05/15/2023 COMP. METAB OLIC PANEL (14) alkaline phosphatase 144 IU/L 44-121 above high normal Not Available [facility] ([facility] [place] [place] [facility] [address] [facility], [place], [address], 05/16/2023 07:14:08 05/14/2005/15/2023 COMP. METAB OLIC PANEL (14) AST (SGOT) 39 IU/L 0-40 Not Available [facility] ([facility] [place] [place] [facility] [address] [facility], [place], [address], 05/16/2023 07:14:08 05/14/2005/15/2023 COMP. METAB OLIC PANEL (14) ALT (SGPT) 27 IU/L 0-32 Not Available [facility] ([facility] [place] [place] [facility] [address] [facility], [place], [address], 05/16/2023 07:14:08 05/14/2005/15/2023 CBC, PLATE LET, NO DIFFE RENTI AL WBC 3.8 x10e3 /uL 3.4-10 .8 Not Available [facility] ([facility] [place] [place] [facility] [address] [facility], [place], [address], 05/16/2023 07:14:09 05/14/2005/15/2023 CBC, PLATE LET, NO DIFFE RENTI AL RBC 3.98 x10e6 /uL 3.77-5 .28 Not Available [facility] ([facility] [place] [place] [facility] [address] [facility], [place], [address], 05/16/2023 07:14:09 05/14/2005/15/2023 CBC, PLATE LET, NO DIFFE RENTI AL hemoglobin 12.9 g/dL 11.1-1 5.9 Not Available [facility] ([facility] [place] [place] [facility] [address] [facility], [place], [address], 05/16/2023 07:14:09 05/14/2005/15/2023 CBC, PLATE LET, NO DIFFE RENTI AL hematocrit 39.7 % 34.0-4 6.6 Not Available [facility] ([facility] [place] [place] [facility] [address] [facility], [place], [address], 05/16/2023 07:14:09 05/14/2005/15/2023 CBC, PLATE LET, NO DIFFE RENTI AL MCV 100 fL 79-97 above high normal Not Available [facility] ([facility] [place] [place] [facility] [address] [facility], [place], [address], 05/16/2023 07:14:09 05/14/2005/15/2023 CBC, PLATE LET, NO DIFFE RENTI AL MCH 32.4 pg 26.6-3 3.0 Not Available [facility] ([facility] [place] [place] [facility] [address] [facility], [place], [address], 05/16/2023 07:14:09 05/14/2005/15/2023 CBC, PLATE LET, NO DIFFE RENTI AL MCHC 32.5 g/dL 31.5-3 5.7 Not Available [facility] ([facility] [place] [place] [facility] [address] [place], [address], 05/16/2023 07:14:09 05/14/2005/15/2023 CBC, PLATE LET, NO DIFFE RENTI AL RDW 14.1 % 11.7-1 5.4 Not Available [facility] ([facility] [place] [place] [facility] [address] [facility], [place], [address], 05/16/2023 07:14:09 05/14/2005/15/2023 CBC, PLATE LET, NO DIFFE RENTI AL platelets 81 x10e3 /uL 150-45 0 alert low Plate let count verif ied by exami natio n of perip heral blood smear . Not Available [facility] ([facility] [place] [place] [facility] [address] [facility], [place], [address], 05/16/2023 07:14:09 05/14/2005/15/2023 CBC, PLATE LET, NO DIFFE RENTI AL hematology comments: NOTE: Verif ied by micro scopi c exami natio n. Not Available [facility] ([facility] [place] [place] [facility] [address] [facility], [place], [address], 05/16/2023 07:14:09 05/14/2005/15/2023 CBC, PLATE LET, NO DIFFE RENTI AL NRBC BUILDER OPERATOR Not Available [facility] ([facility] [place] [place] [facility] [address] [facility], [place], [address], 05/16/2023 07:14:09 05/14/2005/15/2023 PROTH ROMBI N TIME [...] range 2.5 - 3.5 Not Available [facility] ([facility] [place] [place] [facility] [address] [facility], [place], [address], 05/16/2023 07:14:10 05/14/2005/15/2023 PROTH ROMBI N TIME (PT), SERIA L prothrombin time 11.9 sec 9.1-12 .0 Not Available [facility] ([facility] [place] [place] [facility] [address] [facility], [place], [address], 05/16/2023 07:14:10 05/14/2005/15/2023 PROTH ROMBI N TIME (PT), SERIA L pdf . Not Available [facility] ([facility] [place] [place] [facility] [address] [place], [address], 05/16/2023 07:14:10 05/14/2005/15/2023 ANTI- AIXA H MUSCL [...] bilia ry cirrh osis. Not Available [facility] ([facility] [place] [place] [facility] [address] [place], [address], 05/16/2023 07:14:11 05/14/2005/15/2023 ANTI- AIXA H MUSCL E/TAHIR OCHON D. mitochondria l (M2) antibody <20.0 units 0.0-20 .0 Negat marnie 0.0 - 20.0 Equiv ocal 20.1 - 24.9 Posit marnie >24.9 Mitoc hondr ial (M2) Antib odies are found in 90-96 % of patie nts with prima ry bilia ry cirrh osis. Not Available [facility] ([facility] [place] [place] [facility] [address] [place], [address], 05/16/2023 07:14:11 05/14/2005/15/2023 AFP, SERUM , TUMOR [...] pregn ant femal es. Not Available [facility] ([facility] [place] [place] [facility] [address] [place], [address], 05/16/2023 07:14:12 05/14/2005/15/2023 HEPAT ITIS B SURF AB QUANT hepatitis B surf Ab quant <3.1 mIU/m L immuni ty>9.9 below low normal Statu s of Immun ity Anti- HBs Level ----- ----- ----- --- ----- ----- ---- Incon siste nt with Immun ity 0.0 - 9.9 Consi stent with Immun ity >9.9 Not Available [facility] ([facility] [place] [place] [facility] [address] [place], [address], 05/16/2023 07:14:13 05/14/2005/15/2023 JEANA W/REF KISHOR IF POSIT MARNIE JEANA direct POSITI VE negati ve abnormal Not Available [facility] ([facility] [place] [place] [facility] [address] [place], [address], 05/16/2023 07:14:14 05/14/2005/15/2023 JEANA W/REF KISHOR IF POSIT MARNIE anti-DNA (ds) Ab qn <1 IU/mL 0-9 Negat marnie <5 Equiv ocal 5 - 9 Posit marnie >9 Not Available [facility] (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 9 Not Available [facility] ([facility] [place] [place] [facility] [address] [place], [address], 05/16/2023 07:14:14 05/14/2005/15/2023 JEANA W/REF KISHOR IF POSIT MARNIE perez antibodies <0.2 ai 0.0-0. 9 Not Available [facility] ([facility] [place] [place] [facility] [address] [place], [address], 05/16/2023 07:14:14 05/14/2005/15/2023 JEANA W/REF KISHOR IF POSIT MARNIE antisclerode rma-70 antibodies 0.3 ai 0.0-0. 9 Not Available [facility] ([facility] [place] [place] [facility] [address] [place], [address], 05/16/2023 07:14:14 05/14/2005/15/2023 JEANA W/REF KISHOR IF POSIT MARNIE sjogren's anti-ss-A <0.2 ai 0.0-0. 9 Not Available [facility] ([facility] [place] [place] [facility] [address] [place], [address], 05/16/2023 07:14:14 05/14/2005/15/2023 JEANA W/REF KISHOR IF POSIT MARNIE sjogren's anti-ss-B <0.2 ai 0.0-0. 9 Not Available [facility] ([facility] [place] [place] [facility] [address] [place], [address], 05/16/2023 07:14:14 05/14/2005/15/2023 JEANA W/REF KISHOR IF POSIT MARNIE antichromati n antibodies <0.2 ai 0.0-0. 9 Not Available [facility] ([facility] [place] [place] [facility] [address] [place], [address], 05/16/2023 07:14:14 05/14/2005/15/2023 JEANA W/REF KISHOR IF POSIT MARNIE anti-trisha-1 <0.2 ai 0.0-0. 9 Not Available [facility] ([facility] [place] [place] [facility] [address] [place], [address], 05/16/2023 07:14:14 05/14/2005/15/2023 JEANA W/REF KISHOR IF POSIT MARNIE anti-centrom ere B antibodies 2.7 ai 0.0-0. 9 above high normal Not Available [facility] ([facility] [place] [place] [facility] [address] [facility], [place], [address], 05/16/2023 07:14:14 05/14/2005/16/2023 JEANA W/REF KISHOR IF POSIT MARNIE complement C3, serum 109 mg/dL 82-167 Not Available [facility] ([facility] [place] [place] [facility] [address] [facility], [place], [address], 05/16/2023 07:14:14 05/14/2005/16/2023 JEANA W/REF KISHOR IF POSIT MARNIE complement C4, serum 20 mg/dL 12-38 Not Available [facility] ([facility] [place] [place] [facility] [address] [facility], [place], [address], 05/16/2023 07:14:14 05/14/2005/15/2023 IMMUN OGLOB ULIN G, QN, SERUM immunoglobul in g, qn, serum 1562 mg/dL 586-16 02 Not Available [facility] ([facility] [place] [place] [facility] [address] [facility], [place], [address], 05/16/2023 07:14:15 06/06/2006/06/2023 US, liver No observ ation record ed. [facility] [address], [place], [address], 06/13/2023 12:55:07 Result Notes None recorded. Problems Name Problem SNOMED Code Status Onset Date Resolution Date Notes Provider Name and Address Organization Details Recorded Time Stage 3 hepatic fibrosis 7818322112228 9109 Active 2022 Raul Kincaid PA-C [address], [place], [address] , [facility] & [place] 04/13/202 3 08:26:45 Anticentro mere antibody pattern 938417474 Active 2022 Raul Kincaid PA-C [address], [place], [place], [address] [place] [address] , [facility] & [place] 3 08:27:15 Metabolic dysfunctio n-associat ed steatohepa titis 679626225 Active 2022 Raul Kincaid PA-C [address], [place] [address] , [facility] & [place] 3 08:28:41 Hepatic encephalop athy 39742318 Active 2022 Raul Kincaid PA-C [address], [place] [address] , [facility] & [place] 3 10:58:50 Anti-nucle ar factor detected 889112791 Active 2022 Raul Kincaid PA-C [address], [place] [address] , [facility] & [place] 3 16:09:02 Problem Notes None recorded. Medical [...] Address Organization Details Last Updated DateTime 3 86784.9 4 g 97.4 [degF] 32.6 kg/m2 167.64 cm 84 /min 91 /min 98 % 98 % 131 mm[Hg] 72 mm[Hg] Luz Maria Pike [facility] [place] 10:32:47 Social History Question Answer Notes LastModified by VSS Monitoringat ion Details LastModified Time Tobacco Smoking Status Never Smoker Luz Maria ayala, [facility] [place] 05/14/2023 10:31:56 What Is Your Level Of Caffeine Consumption? Moderate [email or web address] Information not available 05/14/2023 Sex: Unknown Functional Status Question Answer Note LastModified by Organizat ion Details LastModified Time Do you use any illicit or recreational drugs? No [email or web address] Information not available 05/14/2023 Do you or have you ever used any other forms of tobacco or nicotine? No [email or web address] Information not available 05/14/2023 What is your level of alcohol consumption? Occasional [email or web address] Information not available 05/14/2023 Mental Status None [...] SNOMED-CT Code Diagnosis ICD10 Code Diagnosis Note [id number] Raul Kincaid PA-C [facility] [address] [address] 05/14/2023 10:00:22 05/14/2023 11:33:43 Stage 3 hepatic fibrosis 3842387500 2092801 K74.02 Hepatic encephalopathy 35343941 K76.82 History of polyp of colon 530726213 Z86.010 Anti-nucle ar factor detected 794826857 R76.8 Anticentro mere antibody pattern 646677021 R76.8 Health Concerns Section Related Observation LastModified by Organization Detai ls LastModified Time None Recorded Concern Status LastModified by Organization Details LastModified Time None Recorded Advance Directives Directive None Recorded Payers Insurance Date Sequence Insurance Name Policy Number Policy Deng Covered Member ID Deng Member ID Guarantor Name 02/14/2024 1 [employer] (MEDICARE REPLACEMENT/A DVANTAGE - PPO) Mary Coronel [id number] Mary Coronel 02/14/2024 2 [employer] [place] (MEDICARE RE[place]AC[place]/A DVANTAGE - HMO) Mary Coronel [id number] Mary Coronel Notes Date Note Type Note [...] last appointment for colonoscopy. Raul Kincaid PA-C [address], [place], [address], [facility] [place] [facility] [place] 05/14/2023 16:14:59 OBGyn Episode No OBEpisode recorded.
--- OUTSIDE RECORDS SUMMARY | 2025-01-03 13:29 | XMS_ITS | Clinical Summary ---
Author Organization [employer] Address [address] [place] [address] Care Team Providers Care Printing Agent Name Role Phone Provider, Not In System Primary Care Provider Un available Allergies No known active allergies Medications hydrOXYzine [...] with breakfast and dinner Look-alike/So und-alike medication. Discontinued(S top Taking at Discharge) lisinopriL (ZESTRIL) 10 MG tablet Take 1 tablet (10 mg total) by mouth 2 (two) times daily. Discontinued(S top Taking at Discharge) tirzepatide 7.5 mg/0.5 mL pnij Inject 7.5 mg under the skin every 7 days. Discontinued(S top Taking at Discharge) furosemide (LASIX) 40 MG tablet Take 1 tablet (40 mg total) by mouth 2 (two) times daily. Discontinued(S top Taking at Discharge) aspirin 81 MG chewable tablet Take 1 tablet (81 mg total) by mouth daily. Discontinued(S top Taking at Discharge) gabapentin (NEURONTIN) 800 MG tablet Take 1 tablet (800 mg total) by mouth 3 (three) times daily. Max Daily Amount: 2,400 mg Discontinued(S top Taking at Discharge) colestipoL (COLESTID) 1 gram tablet Take 2 tablets (2 g total) by mouth daily. Discontinued(S top Taking at Discharge) dicyclomine (BENTYL) 10 MG capsule Take 1 capsule (10 mg total) by mouth 2 (two) times daily. Discontinued(S top Taking at Discharge) cefTRIAXone (ROCEPHIN) 2 g in NS 50 mL MELIDA IVPB Infuse 2 g into a venous catheter daily. 12/07/19 25 Discontinued(S top Taking at Discharge) amoxicillin-c lavulanate (AUGMENTIN) 500-125 mg per tablet Take 1 tablet by mouth 2 (two) times daily for 7 days. 14 tablet 12/07/19 Discontinued(S top Taking at Discharge) gabapentin (NEURONTIN) 100 MG capsule Take 2 capsules (200 mg total) by mouth 3 (three) times daily for 3 days. Max Daily Amount: 600 mg 12/08/19 25 025 Discontinued spironolacton e (ALDACTONE) 25 MG tablet Take 0.5 tablets (12.5 mg total) by mouth every other day for 30 days. 8 tablet 12/08/1919 12/14/2 025 Discontinued(S top Taking at Discharge) bumetanide (BUMEX) 1 MG tablet Take 1 tablet (1 mg total) by mouth 2 (two) times daily. 12/09/19 025 Discontinued(S top Taking at Discharge) spironolacton e (ALDACTONE) 25 MG tablet Take 0.5 tablets (12.5 mg total) by mouth daily. 12/10/19 25 025 Discontinued metOLazone (ZAROXOLYN) 2.5 MG tablet [...] days. Max Daily Amount: 300 mg 12/15/19 025 Discontinued gabapentin (NEURONTIN) 100 MG capsule Take 1 capsule (100 mg total) by mouth 3 (three) times daily for 3 days. Max Daily Amount: 300 mg 9 capsule 12/15/19 025 Active Problems Problem Noted Date Diagnosed Date Anasarca 11/30/2024 Melena 11/29/2024 Encounters Date Type Department Care Team Description 12/06/2024 Telephone [facility] - [place] [address] [place] [address] Mimi Moreno RN Appointment 12/01/2024 9:19 AM EDT - 12/01/2024 9:50 AM EDT Surgery [facility] Endoscopy 1 [place] [address] Scott Daley MD EGD, WITH FOREIGN BODY REMOVAL 12/01/2024 8:55 AM EDT Anesthesia Event [facility] Endoscopy 1 [place] [address] Ashtyn Sanchez MD 11/30/2024 1:43 AM EDT - 12/14/2024 5:30 PM EDT Hospital Encounter [facility] 5B Medical Telemetry Unit 1 [place] [address] Albert Garcia MD Shamsulddin, Haider, MD Zohary, Yasser, MD Majeed, Irfan, MD Edie, QUIQUE Thomas Enoch, MD Melena (Primary Dx); Anasarca Discharge Disposition: Home or Self Care 11/30/2024 Travel from Last 3 Months Social History Tobacco Use Types Packs/Day Years [...] your living situation today? I have a [facility] place to live 11/30/2024 Think about [...] Do you speak a language other than Mauritian at [facility]? No 11/30/2024 Do you want help [...] Description 01/27/2025 10:45 AM EDT Office Visit [facility] Electrophysiology [address] [place] [address] [place] [address] [place] [address] [address] [place] [address] Health Maintenance Due Date Last Done Comments CT Colonography 1962 Colonoscopy 1962 Colorectal Cancer Screening 1962 FOBT/FIT 1962 Fit-DNA (Cologuard) 1962 Sigmoidoscopy 1962 Diabetic foot exam 1972 Depression Screening (12+) 1974 Tobacco Cessation Counseling and Screening (12+) 1974 HIV Screening 1977 Hepatitis C Screening 1980 Pap Smear 1983 Breast Cancer Screening 2002 Lipid Panel 2007 COVID-19 VACCINE ( season) 2024 05/13/2021, 04/15/2021, 11/08/2020 [place] IPPE ([facility] [place] [facility]) [id number] 07/28/2024 Influenza Vaccine (Season Ended) 2025 Pneumococcal 50+ years (3 of 3 - PCV20 or PCV21) 05/15/2025 05/15/2020, 07/09/2016 DTAP/TDAP/TD VACCINES (2 - T d or Tdap) 02/25/2031 02/25/2021 Respiratory Syncytial Virus (RSV) Adult or (1 - 1-dose 75+ series) 2037 Shingles Vaccine (Zoster) Completed 2020, 08/15/2020, 05/31/2020 Procedures Procedure Name Priority Date/Time Associated Diagnosis [...] GLUCOSE POC Routine 12/13/2024 5:46 AM EDT [facility] CBC SCAN Routine 12/13/2024 3:15 AM [...] GLUCOSE POC Routine 12/12/2024 5:43 AM EDT [facility] CBC SCAN Routine 12/12/2024 3:47 AM [...] ANESTHESIA INTUBATION Routine 12/01/2024 9:01 AM EDT [place] EGD FLEXIBLE FOREIGN BODY REMOVAL 12/01/2024 8:55 [...] PARACENTESIS Routine 11/30/2024 4:17 PM EDT CYTOLOGY ([facility]) AP Routine 11/30/2024 4:03 PM EDT Melena PROTEIN, BODY FLUID Routine 11/30/2024 4 :03 PM EDT GLUCOSE, BODY FLUID Routine 11/30/2024 4 :03 PM EDT BODY FLUID/CSF- PATH REVIEW LAB ONLY ([facility]) Routine 11/30/2024 4:03 PM EDT Melena [facility] DIFFERENTIAL, BODY FLUID Routine 11/30/2024 4:03 [...] of63 resultswithin the time period is included. [facility] POC-GLUCOSE 203(H) 70 - 110 mg/dL 12/14/2024 3:42 PM EDT [facility] Comment: In the event of poor peripheral blood flow, venous or arterial blood should be used due to the potential of erroneous results. Notified Nurse [employer]BV [employer] Glass Technician [phone] 12/14/2024 3:42 PM EDT [facility] Blood WHOLE BLOOD / Unknown 12/14/2024 3:41 PM EDT 12/14/2024 3:42 PM EDT Narrative [facility] - 12/14/2024 3:42 PM EDT Autom[employer] Glass Technician ID is - [id number] David Coffman PA-C POINT OF CARE TEST ORDERABLES Final Result Performing Organization Address City/[facility]/ZIP Co de Phone Number [facility] [address] [phone] * ECG 12 lead (12/14/2024 9:10 AM EDT) Only the most recent of13 resultswithin the time period is included. VENTRICULAR RATE EKG/MIN 89 BPM GE MUSE ATRIAL RATE (MCT) 89 BPM GE MUSE WI Interval 146 ms GE MUSE QRS-INTERVAL (MSEC) 86 ms GE MUSE QT Interval 432 ms GE MUSE QTC Interval 525 ms GE MUSE P [place] 34 degrees GE MUSE R AXIS (MCT) -13 degrees GE MUSE T Wave [place] -2 degrees GE MUSE [place] Diagnosis Normal sinus rhythm Septal infarct (cited on or before 14-DEC-2024 ) Confirmed by DEYSI JON M.D. ([id number]) on 12/14/2024 5:07:26 PM GE MUSE 12/14/2024 9:10 AM EDT 12/14/2024 5:07 PM EDT Deysi Jon MD ECG ORDERABLES Final Result Performing Organization Address City/[facility]/ZIP Co de Phone Number GE MUSE * (ABNORMAL) CBC with automated diff (12/14/2024 2:54 AM EDT) Only the most recent of7 resultswithin the time period is included. WBC 1.4(LL) 4.0 - 10.0 K/ L 12/14/2024 3:45 AM EDT [facility] RBC 2.45(L) 3.93 - 5.22 M/ L 12/14/2024 3:45 AM EDT [facility] Hemoglobin 7.6(L) 11.2 - 15.7 GM/DL 12/14/2024 3:45 AM EDT [facility] Hematocrit 24.1(L) 34.1 - 44.9 % 12/14/2024 3:45 AM EDT [facility] MCV 98(H) 79 - 95 fL 12/14/2024 3:45 AM EDT [facility] MCH 31.0 25.6 - 32.2 pg 12/14/2024 3:45 AM EDT [facility] MCHC 31.5(L) 32.2 - 35.5 GM/DL 12/14/2024 3:45 AM EDT [facility] RDW 16.3(H) 11.7 - 14.4 % 12/14/2024 3:45 AM EDT [facility] Platelets 51(L) 140 - 375 K/CU MM 12/14/2024 3:45 AM EDT [facility] MPV 12.3 9.4 - 12.3 fL 12/14/2024 3:45 AM EDT [facility] % Neutros 54 34 - 71 % 12/14/2024 3:45 AM EDT [facility] % Lymphs 32 19 - 52 % 12/14/2024 3:45 AM EDT [facility] % Monos 14(H) 5 - 13 % 12/14/2024 3:45 AM EDT [facility] % Eos 0(L) 1 - 6 % 12/14/2024 3:45 AM EDT [facility] % Baso 1 0 - 1 % 12/14/2024 3:45 AM EDT [facility] NRBC Absolute <0.01 0 - 0.012 K/ul 12/14/2024 3:45 AM EDT [facility] # Neutros 0.76(L) 1.56 - 6.13 K/ L 12/14/2024 3:45 AM EDT [facility] # Lymphs 0.45(L) 1.18 - 3.74 K/ L 12/14/2024 3:45 AM EDT [facility] # Monos 0.19(L) 0.24 - 0.86 K/ L 12/14/2024 3:45 AM EDT [facility] # Eos <0.03(L) 0.04 - 0.36 K/ L 12/14/2024 3:45 AM EDT [facility] # Baso <0.03 0.01 - 0.08 K/ L 12/14/2024 3:45 AM EDT [facility] Immature Granulocytes-Re lative 0.00(L) 0.01 - 0.43 % 12/14/2024 3:45 AM EDT [facility] # IG <0.03 0.00 - 0.03 K/uL 12/14/2024 3:45 AM EDT [facility] Blood Venipuncture / Unknown 12/14/2024 2:54 AM EDT 12/14/2024 3:27 AM EDT Narrative [facility] - 12/14/2024 3:45 AM EDT When [...] PA-C LAB BLOOD ORDERABLES Final Re sult [facility] [address] [phone] * (ABNORMAL) Comprehensive metabolic panel (12/14/2024 2:54 AM EDT) Only the most recent of9 resultswithin the time period is included. Sodium 145 136 - 145 meq/L 12/14/2024 4:13 AM EDT [facility] Potassium 3.5 3.4 - 5.1 meq/L 12/14/2024 4:13 AM EDT [facility] Chloride 109 98 - 112 meq/L 12/14/2024 4:13 AM [facility] CO2 27 22 - 29 meq/L 12/14/2024 4:13 AM [facility] Calcium 8.6 8.4 - 10.2 mg/dL 12/14/2024 4:13 AM [facility] Glucose 146(H) 82 - 115 mg/dL 12/14/2024 4:13 AM [facility] BUN 67.7(H) 9.8 - 20.1 mg/dL 12/14/2024 4:13 AM [facility] Creatinine 2.22(H) 0.57 - 1.11 mg/dL 12/14/2024 4:13 AM [facility] BUN/Creatinine 30(H) 8 - 20 12/14/2024 4:13 AM [facility] eGFR (mL/min/1.73m2) 25(L) >=60 mL/min/1. 73m2 12/14/2024 4:13 AM [facility] Albumin 3.2(L) 3.5 - 5.0 g/dL 12/14/2024 4:13 AM [facility] Alkaline Phosphatase 56 40 - 150 U/L 12/14/2024 4:13 AM [facility] ALT 21 <=34 U/L 12/14/2024 4:13 AM [facility] Comment: ALT2 reagent used for testing does not contain P5P supplementation and therefore may miss ALT elevations in patients with B6 deficiency. This population may be as high as 10% in the [place], with risk factors including malabsorption, drug interactions, and alcoholic hepatitis. AST 52(H) 11 - 34 U/L 12/14/2024 4:13 AM [facility] Comment: AST2 reagent used for testing does not contain P5P supplementation and therefore may miss AST elevations in patients with B6 deficiency. This population may be as high as 10% in the [place], with risk factors including malabsorption, drug interactions, and alcoholic hepatitis. Total Bilirubin 0.9 0.2 - 1.2 mg/dL 12/14/2024 4:13 AM [facility] Protein, Total 5.9(L) 6.4 - 8.3 g/dL 12/14/2024 4:13 AM EDT [facility] Globulin 2.7 2.5 - 4.1 g/dL 12/14/2024 4:13 AM EDT [facility] Anion Gap 13(H) 4 - 12 12/14/2024 4:13 AM EDT [facility] A/G Ratio 1.2 0.7 - 1.9 12/14/2024 4:13 AM EDT [facility] Osmolality Calc 311.0 mOsm/kg 4:13 AM EDT [facility] Blood Venipuncture / Unknown 12/14/2024 2:54 AM EDT 12/14/2024 3:26 AM EDT us David Coffman PA-C LAB BLOOD ORDERABLES Final Re sult Performing Organization Address [facility] Co de Phone Number [facility] [address] [phone] * (ABNORMAL) CBC Scan (12/13/2024 3:15 AM EDT) Only the most recent of2 resultswithin the time period is included. Platelet Estimate Decreased (A) Adequate 12/13/2024 4:55 AM EDT [facility] RBC Morphology abnormal( A) Normal 12/13/2024 4:55 AM EDT [facility] Anisocytosis 1+ 12/13/2024 4:55 AM EDT [facility] Hypochromia 1+ 12/13/2024 4:55 AM EDT [facility] Ovalocytes 1+ 12/13/2024 4:55 AM EDT [facility] Blood Venipuncture / Unknown 12/13/2024 3:15 AM EDT 12/13/2024 3:27 AM EDT us Venkatesh Stephen MD LAB BLOOD ORDERABLES Final Resul t Performing Organization Address [facility]/ZIP Co de Phone Number [facility] [address] [phone] * (ABNORMAL) Hepatic function panel (12/13/2024 3:15 AM EDT) Protein, Total 5.7(L) 6.4 - 8.3 g/dL 12/13/2024 4:13 AM EDT [facility] Albumin 3.1(L) 3.5 - 5.0 g/dL 12/13/2024 4:13 AM EDT [facility] Total Bilirubin 0.8 0.2 - 1.2 mg/dL 12/13/2024 4:13 AM EDT [facility] Bilirubin, Direct 0.4 0.0 - 0.5 mg/dL 12/13/2024 4:13 AM EDT [facility] Alkaline Phosphatase 53 40 - 150 U/L 12/13/2024 4:13 AM EDT [facility] Globulin 2.6 2.5 - 4.1 g/dL 12/13/2024 4:13 AM EDT [facility] A/G Ratio 1.2 0.7 - 1.9 12/13/2024 4:13 AM EDT [facility] AST 42(H) 11 - 34 U/L 12/13/2024 4:13 AM EDT [facility] Comment: AST2 reagent used for testing does not contain P5P supplementation and therefore may miss AST elevations in patients with B6 deficiency. This population may be as high as 10% in the [place], with risk factors including malabsorption, drug interactions, and alcoholic hepatitis. ALT 16 <=34 U/L 12/13/2024 4:13 AM EDT [facility] Comment: ALT2 reagent used for testing [...] OROZCO LAB BLOOD ORDERABLES Final Resu lt [facility] 1 [place] [address], [facility] [phone] * (ABNORMAL) Basic Metabolic Panel (12/13/2024 3:15 AM EDT) Only the most recent of6 resultswithin the time period is included. Sodium 147(H) 136 - 145 meq/L 12/13/2024 4:13 AM EDT [facility] Potassium 3.5 3.4 - 5.1 meq/L 12/13/2024 4:13 AM EDT [facility] CO2 27 22 - 29 meq/L 12/13/2024 4:13 AM EDT [facility] Chloride 110 98 - 112 meq/L 12/13/2024 4:13 AM EDT [facility] Glucose 135(H) 82 - 115 mg/dL 12/13/2024 4:13 AM EDT [facility] BUN 71.9(H) 9.8 - 20.1 mg/dL 12/13/2024 4:13 AM EDT [facility] Creatinine 2.29(H) 0.57 - 1.11 mg/dL 12/13/2024 4:13 AM EDT [facility] BUN/Creatinine 31(H) 8 - 20 12/13/2024 4:13 AM EDT [facility] Calcium 8.5 8.4 - 10.2 mg/dL 12/13/2024 4:13 AM EDT [facility] Anion Gap 14(H) 4 - 12 12/13/2024 4:13 AM EDT [facility] eGFR (mL/min/1.73m2) 24(L) >=60 mL/min/1.7 3m2 12/13/2024 4:13 AM EDT [facility] Osmolality Calc 315.6 mOsm/kg 4:13 AM EDT [facility] Blood Venipuncture / Unknown 12/13/2024 3:15 AM EDT 12/13/2024 3:39 AM EDT us Venkatesh Stephen MD LAB BLOOD ORDERABLES Final Resul t [facility] [address] [phone] * US paracentesis (12/10/2024 11:37 AM EDT) [...] Ascites. ATTENDING PHYSICIAN: Dr. Haseeb Gil PHYSICIAN CLIP BAKER: Sujit Blackman PA-C FINDINGS: After informed consent [...] Ascites. ATTENDING PHYSICIAN: Dr. Haseeb Gil PHYSICIAN CLIP BAKER: Sujit Blackman PA-C FINDINGS: After informed consent [...] Blackman PA-C. us Mary Carmen Mcfadden MD G US ORDERABLES Final Result * ALT (SGPT) (12/10/2024 9:53 AM EDT) ALT 12 <=34 U/L 12/10/2024 11:02 AM EDT [facility] Comment: ALT2 reagent used for testing [...] MD LAB BLOOD ORDERABLES Final Resul t [facility] [address] [phone] * (ABNORMAL) AST (SGOT) (12/10/2024 9:53 AM EDT) AST 39(H) 11 - 34 U/L 12/10/2024 11:02 AM EDT [facility] Comment: AST2 reagent used for testing does not contain P5P supplementation and therefore may miss AST elevations in patients with B6 deficiency. This population may be as high as 10% in the [place], with risk factors including malabsorption, drug interactions, and alcoholic hepatitis. [employer] has become aware of sulfasalazine and sulfapyridine [...] ORDERABLES Final Resul t Performing Organization Address City/[facility]/ZIP Co de Phone Number [facility] [address] [phone] * Magnesium (12/10/2024 9:53 AM EDT) Only the most recent of9 resultswithin the time period is included. Magnesium 2.3 1.6 - 2.6 mg/dL 12/10/2024 11:02 AM EDT [facility] Blood Venipuncture / Unknown 12/10/2024 9:53 AM EDT 12/10/2024 10:39 AM EDT Deysi Jon MD LAB BLOOD ORDERABLES Final Resul t Performing Organization Address [facility] Co de Phone Number [facility] [address] [phone] * XR chest AP portable (12/10/2024 9:10 [...] 7.35 - 7.45 12/10/2024 6:51 AM EDT [facility] pCO2, Arterial 49(H) 35 - 45 mm Hg 12/10/2024 6:51 AM T [facility] pO2, Arterial 119(H) 80 - 100 mm Hg 12/10/2024 6:51 AM EDT [facility] HCO3, Arterial 24 20 - 26 mmol/L 12/10/2024 6:51 AM [facility] Base Excess, Arterial -2.4(L) -2.0 - 2.0 mmol/L 12/10/2024 6:51 AM EDT [facility] O2 Sat, Arterial >99.2 95.0 - 100.0 % 12/10/2024 6:51 AM EDT [facility] Comment:notified at read-anny k verification CTO2 ARTERIAL 11.9 mmol/L 12/10/2024 6:51 AM EDT [facility] THB ARTERIAL 8.5(L) 12.0 - 18.0 g/dL 12/10/2024 6:51 AM T [facility] COLLECTION SITE Left Radial 12/10/2024 6:51 AM EDT [facility] Arterial Puncture Yes 12/10/2024 6:51 AM EDT [facility] Blood Gas O2 Delivery Device Cannula 12/10/2024 6:51 AM EDT [facility] Oxygen Flow Rate 4 12/11/19 6:51 AM EDT [facility] Blood Gas PT Temperature C 37.0 12/10/2024 6:51 AM EDT [facility] Sen's Test Acceptable 12/10/2024 6:51 AM EDT [facility] ABG Number of Draw Attempts 1 12/10/2024 6:51 AM EDT [facility] FIO2 12/10/2024 6:51 AM EDT [facility] Blood Gas Temperature Corrected Results No No 12/10/2024 6:51 AM EDT [facility] Blood, Arterial Collection / Unknown 12/10/2024 6:42 AM EDT 12/10/2024 6:51 AM EDT us Blanka Alvarez MD LAB BLOOD ORDERABLES Final Re sult [facility] [address] [place] [address] * (ABNORMAL) CBC - Hemogram ([facility]) (12/09/2024 3:38 AM EDT) Only the most recent of8 resultswithin the time period is included. WBC 2.4(L) 4.0 - 10.0 K/ L 12/09/2024 3:59 AM EDT [facility] RBC 2.83(L) 3.93 - 5.22 M/ L 12/09/2024 3:59 AM EDT [facility] Hemoglobin 8.5(L) 11.2 - 15.7 GM/DL 12/09/2024 3:59 AM EDT [facility] Hematocrit 28.0(L) 34.1 - 44.9 % 12/09/2024 3:59 AM EDT [facility] MCV 99(H) 79 - 95 fL 12/09/2024 3:59 AM EDT [facility] MCH 30.0 25.6 - 32.2 pg 12/09/2024 3:59 AM EDT [facility] MCHC 30.4(L) 32.2 - 35.5 GM/DL 12/09/2024 3:59 AM EDT [facility] RDW 17.2(H) 11.7 - 14.4 % 12/09/2024 3:59 AM EDT [facility] Platelets 55(L) 140 - 375 K/CU MM 12/09/2024 3:59 AM EDT [facility] MPV 11.5 9.4 - 12.3 fL 12/09/2024 3:59 AM EDT [facility] Blood Venipuncture / Unknown 12/09/2024 3:38 AM EDT 12/09/2024 3:45 AM EDT Mary Carmen Mcfadden MD LAB BLOOD ORDERABLES Final Resu lt [facility] [address] [phone] * Erythropoietin(SENDOUT) (12/07/2024 3:59 AM EDT) Pathologist [facility] Erythropoietin 19 4 - 27 mU/mL 12/08/2024 2:30 PM EDT [facility] Comment: INTERPRETIVE INFORMATION: Erythropoietin Normal serum [...] may benefit from therapy with recombinant EPO ([facility] [id number],1989). Performed By: [facility] [address] [place] [address] [employer] Administrator: Lalo Mortensen MD, PhD CLIA Number: [id number] Blood Venipuncture / Unknown 12/07/2024 3:59 AM EDT 12/07/2024 4:11 AM EDT us Ariel Mills MD LAB BLOOD ORDERABLES Final Res [facility] [address] [place] [address], [facility] [phone] * Ammonia (12/07/2024 3:59 AM EDT) Only the most recent of8 resultswithin the time period is included. Ammonia 44 18 - 72 mol/L 12/07/2024 4:37 AM EDT [facility] Blood Venipuncture / Unknown 12/07/2024 3:59 AM EDT 12/07/2024 4:22 AM EDT us Timothy Bai MD LAB BLOOD ORDERABLES Final Result [facility] [address] [phone] * (ABNORMAL) Ferritin (12/06/2024 3:13 AM EDT) Only the most recent of2 resultswithin the time period is included. Ferritin 256.82(H) 4.63 - 204.00 ng/mL 12/06/2024 8:25 AM EDT [facility] Blood Venipuncture / Unknown 12/06/2024 3:13 AM EDT 12/06/2024 3:50 AM EDT us Ariel Mills MD LAB BLOOD ORDERABLES Final Res ult [facility] [address] [phone] * (ABNORMAL) Hemoglobin (12/05/2024 3:36 PM EDT) Only the most recent of11 resultswithin the time period is included. [facility] Hemoglobin 8.1(L) 11.2 - 15.7 GM/DL 12/05/2024 3:57 PM EDT [facility] Blood Venipuncture / Unknown 12/05/2024 3:36 PM EDT 12/05/2024 3:47 PM EDT Timothy Bai MD LAB BLOOD ORDERABLES Final Result [facility] [address] [phone] * ANCA Vasculitis Profile(SENDOUT) (12/04/2024 8:15 AM EDT) [facility] Myeloperoxidase (MPO) Ab, IgG 0 0 - 19 AU/mL 12/07/2024 8:52 AM EDT [facility] Comment: INTERPRETIVE INFORMATION: Myeloperoxidase Abs, IgG 19 AU/mL or Less ......... Negative 20-25 AU/mL .............. Equivocal 26 AU/mL or Greater ...... Positive Approximately 90% of patients with a P-ANCA pattern by IFA have antibodies specific for MPO. Serine Proteinase 3 (PR3) Ab, IgG 0 0 - 19 AU/mL 12/07/2024 8:52 AM EDT [facility] Comment: INTERPRETIVE INFORMATION: Serine Proteinase 3, IgG 19 AU/mL or Less ........ Negative 20-25 AU/mL ............. Equivocal 26 AU/mL or Greater ..... Positive Approximately 85% of patients with a C-ANCA pattern by IFA have antibodies specific for PR3. ANCA IFA Titer <1:20 <1:20 12/07/2024 8:52 AM EDT [facility] ANCA IFA Pattern None Detected None Detected 12/07/2024 8:52 AM EDT [facility] Comment: INTERPRETIVE INFORMATION: ANCA IFA Pattern Neutrophil Cytoplasmic Antibodies (C-ANCA = granular cytoplasmic staining, P-ANCA = perinuclear staining) are found in the serum of over 90 percent of patients with certain necrotizing systemic vasculitides, and usually in less than 5 percent of patients with collagen vascular disease or arthritis. Performed By: [facility] [address] [place] [address] Mason[employer]or Administrator: Lalo Mortensen MD, PhD CLIA Number: [id number] Blood Venipuncture / Unknown 12/04/2024 8:15 AM EDT 12/04/2024 8:32 AM EDT us Hema Cervantes MD LAB BLOOD ORDERAB[place] [address], [facility] [phone] * JEANA Reflexive Profile(SENDOUT) (12/04/2024 8:15 AM EDT) Anti-Nuclear Ab (JEANA), IgG by SHARON None Detected None Detected 12/06/2024 3:51 PM EDT [facility] [employer] Comment: No Anti-Nuclear Antibodies (JEANA) detected by SHARON. The Extractable Nuclear Antigen Antibodies (SOCK IRONER, Llanes, SSA 52, SSA 60, Scleroderma, Lilia-1 and SSB) and Double Stranded DNA (dsDNA) Antibody, IgG will not be performed. If suspicion of connective tissue disease is strong, and JEANA is negative by SHARON, consider testing for JEANA by IFA ([id number]). INTERPRETIVE INFORMATION: Anti-Nuclear Antibodies (JEANA), IgG by SHARON Antinuclear Antibodies (JEANA), IgG by SHARON: JEANA specimens are screened using enzyme-linked immunosorbent assay (SHARON) methodology. All SHARON results reported as Detected are further tested by indirect fluorescent assay (IFA) using HEp-2 substrate with an IgG-specific conjugate. The JEANA SHARON screen is designed to detect antibodies against dsDNA, histones, SS-A (Ro), SS-B (La), Llanes, Llanes/SOCK IRONER, Scl-70, Lilia-1, centromeric proteins, other antigens extracted from the HEp-2 cell nucleus. JEANA SHARON assays have been reported to have lower sensitivities than JEANA IFA for systemic autoimmune rheumatic diseases (SARD). Negative results do not necessarily rule out SARD. Performed By: [facility] [address] [place] [address] Mason[employer]or Administrator: Lalo Mortensen MD, PhD CLIA Number: [id number] Blood Venipuncture / Unknown 12/04/2024 8:15 AM EDT 12/04/2024 8:32 AM EDT Hema Cervantes MD LAB BLOOD ORDERABLES Final Re sult [facility] [address] [place] [address], [facility] [phone] * Phosphorus (12/04/2024 3:34 AM EDT) [facility] Phosphorus 4.2 2.5 - 4.5 mg/dL 12/04/2024 4:04 AM EDT [facility] Blood Venipuncture / Unknown 12/04/2024 3:34 AM EDT 12/04/2024 3:41 AM EDT Kirsty Tuttle APRN LAB BLOOD ORDERABLES Final R esult [facility] 1 [place] [address], [facility] [phone] * Creatine Kinase (CK) (12/03/2024 7:39 AM EDT) Only the most recent of2 resultswithin the time period is included. [facility] Total CK 55 29 - 168 U/L 12/03/2024 6:19 PM EDT [facility] Blood Venipuncture / Unknown 12/03/2024 7:39 AM EDT 12/03/2024 5:52 PM EDT us Hema Cervantes MD LAB BLOOD ORDERABLES Final Re sult [facility] [address] [phone] * Transfuse RBC (12/02/2024 5:03 PM EDT) [...] Pancytopenia. ATTENDING RADIOLOGIST: Dr. Haseeb Gil. PHYSICIAN CLIP BAKER: Sandra Ramsey PA-C PROCEDURE: After informed consent [...] Pancytopenia. ATTENDING RADIOLOGIST: Dr. Haseeb Gil. PHYSICIAN CLIP BAKER: Sandra Ramsey PA-C PROCEDURE: After informed consent [...] by Sandra Ramsey PA-C. Rommel Batista MD IMG CT ORDERABLES Final Result * [facility] BONE MARROW SMEAR, ASPIRATION, AND STAIN (12/02/2024 12:06 PM EDT) AP RESULT See Note: [facility] Comment: [facility] [address] [place] [address] or [phone] Joe Carlos M.D., Contracts Representative PATIENT NAME LABORATORY NO. 170MARY PETERSEN. [id number] [facility] AGE SEX SSN CLIENT REF # [id number] F [id number] 1 [place] [address] REQUESTING Aleksandr ATTENDING Aleksandr. COPY TOROMMEL PICHARDO DATE COLLECTED DATE RECEIVED DATE REPORTED 12/02/2024 12/02/2024 12/06/2024 ADDENDUM PRESENT ADDENDUM: Cytogenetics shows a normal female karyotype, 46,XX[20]. The original diagnosis remains unchanged. Verified by Heydi Mak M.D., MPH on 12/13/2024 Professional interpretation rendered by Heydi Mak M.D., MPH at [facility], [address] [place] [address]. DIAGNOSIS: PERIPHERAL SMEAR , BONE MARROW ASPIRATION [...] CD38, CD45, CD56, CD57, CD117, CD123, HLA-DR, [place], and Lambda. These tests use analyte specific [...] rendered by Heydi Mak M.D., MPH at [facility], [address] [place] [address]. GROSS DESCRIPTION: A. Received 1 peripheral blood smear slide for review. B. Received 5 bone marrow aspirate smear slides for review. 4 additional bone marrow aspirate smear slides made at [facility]. C. Received in a purple top [...] BY: Heydi Mak M.D., MPH CPT CODES: 70246, 2FLP, 43351, 77722o7, 11395d4, 54226, 79623, [id number] Bone Marrow BONE MARROW STRUCTURE / Unknown 12/02/2024 12:06 PM EDT us Rommel Batista MD PATHOLOGY/CYTOLOGY ORDERABLES Edited Result - Final [facility] [address] [place] [address] * Prepare RBC: 1 Units (12/02/2024 9:36 AM EDT) Only the most recent of2 resultswithin the time period is included. Issue Date/Time [id number] [facility] [place] Product Identification Red Blood Cells [facility] [place] Product Code [id number] [facility] [place] Status Information Transfused [facility] [place] Unit Number [id number] [facility] [place] Blood Type 5100 [facility] [place] Cross Match Results Compatible [facility] [place] us Timothy Bai MD FS_MODEL_IP_BLOOD BANK PRO DUCT ORDERABLES Final Result Performing Organization Address City/[facility]/ZIP Co de Phone Number [facility] [place] [address] [place] [address] * (ABNORMAL) Hemoglobin and hematocrit (12/02/2024 7:40 AM EDT) Hemoglobin 7.4(L) 11.2 - 15.7 GM/DL 12/02/2024 9:43 AM EDT [facility] Hematocrit 23.4(L) 34.1 - 44.9 % 12/02/2024 9:43 AM EDT [facility] Blood Venipuncture / Unknown 12/02/2024 7:40 AM EDT 12/02/2024 7:47 AM EDT us Timothy Bai MD LAB BLOOD ORDERABLES Final Result [facility] [address] [phone] * AN SINGLE LUMEN INTUBATION (12/01/2024 9:01 [...] ABO/Rh O Positive 12/01/2024 4:53 AM EDT [facility] BLOOD [facility] [place] Antibody Screen Negative 12/01/2024 4:53 AM EDT [facility] [place] HISTCHK HIST CHECK PERFORMED 12/01/2024 4:53 AM EDT [facility] [place] Blood Venipuncture / Unknown 12/01/2024 7:08 AM EDT 12/01/2024 7:15 AM EDT us Denilson Hodgson DO [facility] BLOOD BANK TEST ORDERABLES Final Result [facility] [place] [address] [place] [address], [facility] [phone] * ABO/RH Confirmation/Retype (12/01/2024 4:06 AM EDT) RETYPE O Positive 12/01/2024 5:15 AM EDT [facility] [place] Comment:[id number] Blood Venipuncture / Unknown 12/01/2024 4:06 AM EDT 12/01/2024 5:14 AM EDT us Timothy Bai MD [facility] BLOOD BANK TEST ORDERA BLES Final Result [facility] [place] [address] [place] [address], [facility] [phone] * Ultrasound renal limited (11/30/2024 4:19 PM [...] dictated by Ronnell Tom MD us Huey JARRETT US ORDERABLES Final Result * Ultrasound liver [...] dictated by SABINE Yang. us Destiney Llanes SET UP PERSON IMG US ORDERABLES Final Res ult * DIFFERENTIAL, BODY FLUID (11/30/2024 4:03 PM EDT) Neutrophils Fluid 5 0 - 25 % 8:49 PM EDT [facility] Lymphocytes Fluid 46 % 8:49 PM EDT [facility] Unidentified Mononuclear Cells BF 49 0 - 0 % 11/30/2024 8:49 PM EDT [facility] Peritoneal Fluid BODY FLUID / Unknown 11/30/2024 4:03 PM EDT 11/30/2024 4:33 PM EDT us Huey Hurtado MD BODY FLUIDS AND STOOLS ORDERABLE S Final Result [facility] [address] [phone] * [facility] Non-Automatic I Threading Machine Feeder Cytology (11/30/2024 4:03 PM EDT) AP RESULT See Note: [facility]Y [facility] Comment: [facility] [address] [place] [address] or [phone] Joe Carlos M.D., Contracts Representative PATIENT NAME LABORATORY NO. MARY OLIVA. [id number] AGE SEX SSN CLIENT REF # [facility] 64 1960 F [id number] 1 [facility] REQUESTING Aleksandr ATTENDING [place] [address] HUEY HURTADO DATE COLLECTED DATE RECEIVED DATE REPORTED 11/30/2024 12/01/2024 12/02/2024 DIAGNOSIS: PERITONEAL FLUID: Negative for malignant cells. MICROSCOPIC DESCRIPTION: Scattered mesothelial cells and chronic inflammatory cells are present. Professional interpretation rendered by John Sanchez M.D., [place] at [employer] [facility], [address] [place] [address]. CLINICAL HISTORY: Melena Anasarca Acute renal failure SPECIMENS SUBMITTED: PERITONEAL FLUID GROSS SPECIMEN DESCRIPTION: 40 ccs of hazy, light yellow fluid, scant sediment, received in fixative ThinPrep slides prepared. Cell block has been examined. CRIMINAL DEFENSE LAWYER: SVITLANA HERNANDEZ (ASCP) REVIEWED, DIAGNOSED AND ELECTRONICALLY SIGNED BY: John Sanchez M.D., [place]. CPT CODES: 19796, 63307 Peritoneal Fluid BODY FLUID / Unknown 11/30/2024 4:03 PM EDT us Huey Hurtado MD PATHOLOGY/CYTOLOGY ORDERABLES Fi nal Result [facility] [address] [place] [address] * Body Fluid/CSF - Path Review (SJ) (11/30/2024 4:03 PM EDT) SENT TO PATHOLOGY FOR REVIEW Yes 12/03/2024 6:54 AM EDT [facility] Scan Result Mesothelial cells. MD German 12/02/2024 12/03/2024 6:54 AM EDT [facility] Peritoneal Fluid BODY FLUID / Unknown 11/30/2024 4:03 PM EDT 11/30/2024 4:33 PM EDT us Huey Hurtado MD BODY FLUIDS AND STOOLS ORDERABLE S Final Result [facility] [address] [phone] * Glucose, body fluid (11/30/2024 4:03 PM EDT) Glucose, Body Fluid 107 See Comment mg/dL 12/01/2024 7:10 AM EDT [facility] BODY FLUID TYPE Peritoneal 12/01/2024 7:10 AM EDT [facility] Body Fluid PERITONEAL FLUID / Unknown 11/30/2024 4:03 PM EDT 12/01/2024 6:52 AM EDT Narrative [facility] - 12/01/2024 7:10 AM EDT This test has been modified from the bark fitter's instructions and its performance characteristics were determined [...] ORD ERABLES Final Result Performing Organization Address City/[facility]/ZIP Co de Phone Number [facility] [address] [phone] * Anaerobic Culture (11/30/2024 4:03 PM EDT) Result No Anaerobic growth 12/05/2024 6:34 AM EDT [facility] Peritoneal Fluid BODY FLUID / Unknown 11/30/2024 4:03 PM EDT 11/30/2024 4:34 PM EDT Narrative [facility] - 12/05/2024 6:34 AM EDT Specimen Description: peritoneal fluid us Huey Hurtado MD MICROBIOLOGY - GENERAL ORDERABLE S Final Result [facility] [address] [phone] * Body Fluid Culture + Gram Stain (11/30/2024 4:03 PM EDT) Result No growth 12/03/2024 9:07 AM EDT [facility] Gram Stain Result No organisms seen 12/03/2024 9:07 AM EDT [facility] Gram Stain Result No cells seen 12/03/2024 9:07 AM EDT [facility] Peritoneal Fluid BODY FLUID / Unknown 11/30/2024 4:03 PM EDT 11/30/2024 4:34 PM EDT Narrative [facility] - 12/03/2024 9:07 AM EDT Specimen Description: peritoneal fluid us Huey Hurtado MD MICROBIOLOGY - GENERAL ORDERABLE S Final Result [facility] [address] [phone] * (ABNORMAL) Body fluid cell count with differential (11/30/2024 4:03 PM EDT) Appearance Cloudy(A) Clear 11/30/2024 8:49 PM EDT [facility] Color Yellow 11/30/2024 8:49 PM EDT [facility] BODY FLUID TYPE Peritoneal 11/30/2024 8:49 PM EDT [facility] Auto WBC/Nucleated Cells BF 85 /uL 11/30/2024 8:49 PM EDT [facility] Comment: Please refer to specific WBC/Nucleated Cell Count Body Fluid reference ranges below: For Pleural: 0-1000 Peritoneal: 0-1000 Pericardial:0-1000 Synovial: 0-200 Auto RBC BF <3,000 /uL 11/30/2024 8:49 PM EDT [facility] Comment: Please refer to specific RBC Cell Count Body Fluid reference ranges below: Pleural: 0-10,000 Peritoneal: 0-10,000 Pericardial:0-10,000 Synovial:0-30 Peritoneal Fluid BODY FLUID / Unknown 11/30/2024 4:03 PM EDT 11/30/2024 4:33 PM EDT Narrative [facility] - 11/30/2024 8:49 PM EDT There is normally no readily obtainable pleural, peritoneal and pericardial fluid, hence normal elements for these potential fluids are not defined. us Huey Hurtado MD BODY FLUIDS AND STOOLS ORDERABLE S Final Result [facility] [address] [phone] * Protein, body fluid (11/30/2024 4:03 PM EDT) Protein, Fluid 1.9 See Comment g/dL 12/01/2024 7:10 AM EDT [facility] BODY FLUID TYPE Peritoneal 12/01/2024 7:10 AM EDT [facility] Body Fluid PERITONEAL FLUID / Unknown 11/30/2024 4:03 PM EDT 12/01/2024 6:52 AM EDT Narrative [facility] - 12/01/2024 7:10 AM EDT This test has been modified from the bark fitter's instructions and its performance characteristics were determined by the laboratory. The reference intervals and other method performance specifications are unavailable for this test. It is recommended to interpret body fluid concentrations in comparison with the corresponding serum or plasma concentrations and to integrate test results into the clinical context. Timothy Bai MD BODY FLUIDS AND STOOLS ORD ERABLES Final Result Performing Organization Address City/[facility] Co de Phone Number [facility] [address] [phone] * Lactate dehydrogenase (LDH), body fluid (11/30/2024 4:03 PM EDT) LDH, Fluid 71 See Comment U/L 11/30/2024 6:19 PM EDT [facility] BODY FLUID TYPE Peritoneal 11/30/2024 6:19 PM EDT [facility] Peritoneal Fluid BODY FLUID / Unknown 11/30/2024 4:03 PM EDT 11/30/2024 4:33 PM EDT Narrative [facility] - 11/30/2024 6:19 PM EDT This test has been modified from the bark fitter's instructions and its performance characteristics were determined [...] ORDERABLE S Final Result Performing Organization Address City/[facility] Co de Phone Number [facility] [address] [phone] * (ABNORMAL) Urinalysis, Reflex Microscopic and Culture If Indicated (11/30/2024 11:35 AM EDT) Color, UA Light Yellow 11/30/2024 12:06 PM EDT [facility] Clarity, UA Turbid(A) Clear 11/30/2024 12:06 PM EDT [facility] Specific Farnam, UA 1.011 1.005 - 1.030 11/30/2024 12:06 PM EDT [facility] pH, UA 5.0(L) 6.0 - 8.0 11/30/2024 12:06 PM EDT [facility] Leukocytes, UA 500 Félix/uL(A) Negative 11/30/2024 12:06 PM EDT [facility] Nitrite, UA Negative Negative 11/30/2024 12:06 PM EDT [facility] Protein, UA Negative Negative 11/30/2024 12:06 PM EDT [facility] Glucose, UA Normal Normal 11/30/2024 12:06 PM EDT [facility] Ketones, UA Negative Negative 11/30/2024 12:06 PM EDT [facility] Bilirubin, UA Negative Negative 11/30/2024 12:06 PM EDT [facility] Blood, UA Negative Negative 11/30/2024 12:06 PM EDT [facility] Urobilinogen, UA Normal Normal 11/30/2024 12:06 PM EDT [facility] Specimen Source Urine, Clean Catch 11/30/2024 12:06 PM EDT [facility] Urine URINE SPECIMEN COLLECTION, CLEAN CATCH / Unknown 11/30/2024 11:35 AM EDT 11/30/2024 11:41 AM EDT us Destiney Llanes SET UP PERSON URINE ORDERABLES Final Resu lt Performing Organization Address [facility]/State/ZIP Co de Phone Number [facility] 1 [place] [address], [facility] [phone] * (ABNORMAL) Urinalysis Microscopic Only (11/30/2024 11:35 AM EDT) WBC, UA 21-50(A) None Seen /HPF 11/30/2024 12:06 PM EDT [facility] RBC, UA 0-2(A) None Seen /HPF 11/30/2024 12:06 PM EDT [facility] Bacteria, UA 1+(A) None Seen, Trace 11/30/2024 12:06 PM EDT [facility] Mucus 1+(A) None Seen 11/30/2024 12:06 PM EDT [facility] SQUAMOUS EPITHELIAL 3-5(A) None Seen /HPF 11/30/2024 12:06 PM EDT [facility] HYALINE CASTS 21-50(A) None Seen /LPF 11/30/2024 12:06 PM EDT [facility] Urine URINE SPECIMEN COLLECTION, CLEAN CATCH / Unknown 11/30/2024 11:35 AM EDT 11/30/2024 11:41 AM EDT Destiney Llanes APRN URINE ORDERABLES Final Resu lt [facility] [address] [phone] * Urea Nitrogen, random urine (11/30/2024 11:35 AM EDT) Urea Nitrogen, Ur 305 mg/dL 11/30/2024 12:36 PM EDT [facility] Comment:Reference Range not established Urine 11/30/2024 11:3 5 AM EDT 11/30/2024 12:15 PM EDT Hill Boo MD URINE ORDERABLES Final Result [facility] [address] [phone] * Protein / creatinine ratio, urine (11/30/2024 11:35 AM EDT) Creatinine, Ur 62.00 47.00 - 110.00 mg/dL 11/30/2024 12:36 PM EDT [facility] Protein Creatinine Ratio 0.19 <=0.20 11/30/2024 12:36 PM EDT [facility] Protein, Urine 12 1 - 14 mg/dL 11/30/2024 12:36 PM EDT [facility] Urine 11/30/2024 11:3 5 AM EDT 11/30/2024 12:15 PM EDT us Hill Boo MD URINE ORDERABLES Final Result Performing Organization Address [facility]/ZIP Co de Phone Number [facility] [address] [phone] * Sodium, random urine (11/30/2024 11:35 AM EDT) Sodium Urine 83 See Comment meq/L 11/30/2024 12:36 PM EDT [facility] Comment:Reference Range not established Urine 11/30/2024 11:3 5 AM EDT 11/30/2024 12:15 PM EDT us Hill Boo MD URINE ORDERABLES Final Result Performing Organization Address [facility]/ZIP Co de Phone Number [facility] [address] [phone] * Urine Culture (11/30/2024 11:35 AM EDT) Result Recollect Specimen - 3 or more organisms suggests contamination 12/01/2024 6:49 AM EDT [facility] Urine URINE SPECIMEN COLLECTION, CLEAN CATCH / Unknown 11/30/2024 11:35 AM EDT 11/30/2024 11:41 AM EDT us Destiney Llanes APRN MICROBIOLOGY - GENERAL ISAAC HAMLIN Final Result [facility] 1 [place] [address], [facility] [phone] * (ABNORMAL) Monoclonal Protein Study, Expanded Panel(SENDOUT) (11/30/2024 11:01 AM EDT) Total Protein, Serum 6.2(L) 6.3 - 8.2 g/dL 12/03/2024 12:57 PM EDT [facility] Albumin 2.71(L) 3.75 - 5.01 g/dL 12/03/2024 12:57 PM EDT [facility] Alpha 1 Globulin 0.34 0.19 - 0.46 g/dL 12/03/2024 12:57 PM EDT [facility] Alpha 2 Globulin 0.38(L) 0.48 - 1.05 g/dL 12/03/2024 12:57 PM EDT [facility] Beta Globulin 1.30(H) 0.48 - 1.10 g/dL 12/03/2024 12:57 PM EDT [facility] Gamma 1.47 0.62 - 1.51 g/dL 12/03/2024 12:57 PM EDT [facility] Immunofixation MAEGAN Done 12/03/2024 12:57 PM EDT [facility] Immunoglobulin G 1484 768 - 1632 mg/dL 12/03/2024 12:57 PM EDT [facility] Immunoglobulin A 686(H) 68 - 408 mg/dL 12/03/2024 12:57 PM EDT [facility] Immunoglobulin M 126 35 - 263 mg/dL 12/03/2024 12:57 PM EDT [facility] Monoclonal Protein Not Applicable <=0.00 g/dL 12/03/2024 12:57 PM EDT [facility] [facility] [place] Qnt Free Light Chains 173.10(H) 3.30 - 19.40 mg/L 12/03/2024 12:57 PM EDT [facility] Comment: INTERPRETIVE INFORMATION: [place] Qnt Free Light Chains Undetected antigen excess is a rare event but cannot be excluded. Free light chain results should always be interpreted in conjunction with other clinical and laboratory findings. [place] Qnt Free Light Chains 123.84(H) 5.71 - 26.30 mg/L 12/03/2024 12:57 PM EDT [facility] Comment: INTERPRETIVE INFORMATION: [place] Qnt Free Light Chains Undetected antigen excess is a rare event but cannot be excluded. Free light chain results should always be interpreted in conjunction with other clinical and laboratory findings. [place]/Lambda Free Light Chain Ratio 1.40 0.26 - 1.65 12/03/2024 12:57 PM EDT [facility] SPEP/MAEGAN Interpretation See Note 12/03/2024 12:57 PM EDT [facility] Comment: Restricted band in the beta [...] Serum See Note 12/03/2024 12:57 PM EDT [facility] Comment: Authorized individuals can access the [employer] Enhanced Report with an [employer] Connect account using the following link. Your local lab can assist you in obtaining the patient report if you don't have a Connect account. [email or web address] Performed By: [facility] [address] [place] [address] Masonry Contractor Administrator: Lalo Mortensen MD, PhD CLIA Number: [id number] Blood Venipuncture / Unknown 11/30/2024 11:01 AM EDT 11/30/2024 12:17 PM EDT Hill Boo MD LAB BLOOD ORDERABLES Final Resu lt [facility] [employer] [address] [place] [address], [facility] [phone] * Alpha Fetoprotein Tumor Marker(SENDOUT) (11/30/2024 11:01 AM EDT) Alpha Fetoprotein Tumor Marker 2 0 - 9 ng/mL 12/01/2024 3:41 PM EDT [facility] Comment: INTERPRETIVE INFORMATION: Alpha Fetoprotein Tumor Marker The Stefany Lincoln Access DxI AFP method is used. Results [...] reference intervals for this test in the [employer] Laboratory Test Directory ([facility]isbi). Performed By: [facility] [address] [place], [place] [id number] Masonry Contractor Administrator: Lalo Mortensen MD, PhD CLIA Number: [id number] Blood Venipuncture / Unknown 11/30/2024 11:01 AM EDT 11/30/2024 11:06 AM EDT us Destiney Llanes APRN LAB BLOOD ORDERABLES Final Result Performing Organization Address City/[facility]/[place] [address], [facility] [phone] * (ABNORMAL) Vitamin D, 25-Hydroxy (11/30/2024 8:20 AM EDT) Vitamin D 25-Hydroxy 22.0(L) 30 - 80 ng/mL 11/30/2024 9:48 AM EDT [facility] Blood Venipuncture / Unknown 11/30/2024 8:20 AM EDT 11/30/2024 9:08 AM EDT Timothy Bai MD LAB BLOOD ORDERABLES Final Result [facility] [address] [phone] * Hemoglobin A1c (11/30/2024 8:20 AM EDT) Hemoglobin A1C 4.9 4.0 - 5.6 % 11/30/2024 9:17 AM EDT [facility] Comment: Hemoglobin A1C levels are related to mean glucose during the preceding 2-3 months. Less than 7% demonstrates glycemic control in diabetic patients. Hemoglobin AlC % Suggested Diagnosis > or = 6.5 Diabetic 5.7 - 6.4 Prediabetic <5.7 Non-diabetic eAVG Glucose 93.93 70 - 126 mg/dL 11/30/2024 9:17 AM EDT [facility] Blood Venipuncture / Unknown 11/30/2024 8:20 AM EDT 11/30/2024 9:07 AM EDT us Huey Hurtado MD LAB BLOOD ORDERABLES Final Resul t [facility] [address] [phone] * ECHO COMPLETE (DOPPLER / COLOR) WO CONTRAST (11/30/2024 7:50 AM EDT) Anatomical Region Laterality Modality Heart Vascular Ultraso und 11/30/2024 7:25 AM EDT Narrative 11/30/2024 10:46 AM EDT TRANSTHORACIC ECHOCARDIOGRAPHY REPORT Demographics Patient Name: RIN JONES : 1960 Age: 64 year(s) Corporate ID Number: [id number] Gender Female Speech/Language Therapist: Giovanna Rock Height: [address] [facility] Referring Physician: HUEY HURTADO [...] 1.35 m/s E/A ratio: 0.97 m/s Volume lyhmjbhnu349.99 LV length: 8.51 cm ml Volume vjdgvpoa53.96 ml LVOT diameter: 1.79 cm Normal sized [...] Valve TR velocity: 2.51 m/s TR gradient: 25.20561 mmHg Estimated RAP: 3 mmHg RVSP: 28.12 [...] 1960 Age: 64 year(s) Corporate ID Number: [id number] Gender Female Speech/Language Therapist: Giovanna Rock Height: [address] [facility] Referring Physician: HUEY HURTADO Weight: 225 pounds Interpreting JESSICA RAYMOND MD BMI: 35.24 kg/m^2 Physician: Date of Service: 11/30/2024 Blood Pressure: 118/59 mmHg Room Number: 579 Type of Study: TTE procedure: ECHO COMPLETE (DOPPLER / COLOR) W OR WO CONTRAST. Patient Status: Routine IP [facility]qu[facility] History/Tech Notes: [...] .99 LV length: 8.51 cm ml Volume clzozvdv01.96 ml LVOT diameter: 1.79 cm Normal sized [...] Valve TR velocity: 2.51 m/s TR gradient: 25.97138 mmHg Estimated RAP: 3 mmHg RVSP: 28.12 [...] in 5 days 12/05/2024 5:01 AM EDT [facility] Blood ENTIRE RIGHT UPPER ARM / Unknown Venipuncture / Unknown 11/30/2024 3:42 AM EDT 11/30/2024 4:09 AM EDT us Huey Hurtado MD MICROBIOLOGY - GENERAL ORDERABLE S Final Result Performing Organization Address [facility] Co de Phone Number [facility] [address] [phone] * Lactic Acid with reflex (11/30/2024 3:40 AM EDT) Lactic Acid Level (mmol/L) 0.9 0.5 - 2.2 mmol/L 11/30/2024 5:37 AM EDT [facility] Blood Venipuncture / Unknown 11/30/2024 3:40 AM EDT 11/30/2024 4:10 AM EDT us Huey Hurtado MD LAB BLOOD ORDERABLES Final Resul t Performing Organization Address [facility] de Phone Number [facility] [address] [phone] * Procalcitonin (11/30/2024 3:40 AM EDT) Procalcitonin 0.26 See Comment ng/mL 11/30/2024 5:07 AM EDT [facility] Comment: Sepsis comment <0.5 Antibiotics Discouraged [...] ORDERABLES Final Resul t Performing Organization Address City/[facility]/ZIP Co de Phone Number [facility] [address] [phone] * (ABNORMAL) Iron and TIBC (11/30/2024 3:40 AM EDT) Iron 63 50 - 170 ug/dL 11/30/2024 6:13 PM EDT [facility] TIBC 183(L) 250 - 435 ug/dL 11/30/2024 6:13 PM EDT [facility] % Saturation 34 % 11/30/2024 6:13 PM EDT [facility] UIBC 120 11/30/2024 6:13 PM EDT [facility] Blood Venipuncture / Unknown 11/30/2024 3:40 AM EDT 11/30/2024 4:09 AM EDT us Rommel Batista MD LAB BLOOD ORDERABLES Final Res ult [facility] [address] [phone] * aPTT (11/30/2024 3:40 AM EDT) aPTT 27.7 22.0 - 32.0 seconds 11/30/2024 4:32 AM EDT [facility] Blood Venipuncture / Unknown 11/30/2024 3:40 AM EDT 11/30/2024 4:10 AM EDT us Heuy Hurtado MD LAB BLOOD ORDERABLES Final Resul t Performing Organization Address City/[facility]/ZIP Co de Phone Number [facility] [address] [phone] * (ABNORMAL) Prothrombin time/INR (11/30/2024 3:40 AM EDT) Protime 12.9(H) 9.0 - 12.0 seconds 11/30/2024 4:32 AM EDT [facility] INR 1.17(H) 0.80 - 1.10 11/30/2024 4:32 AM EDT [facility] Comment: Recommended therapeutic ranges using International [...] ORDERABLES Final Resul t Performing Organization Address [facility] de Phone Number [facility] [address] [phone] * (ABNORMAL) Uric acid (11/30/2024 3:40 AM EDT) Uric Acid 11.2(H) 2.5 - 6.2 mg/dL 11/30/2024 12:18 PM EDT [facility] Blood Venipuncture / Unknown 11/30/2024 3:40 AM EDT 11/30/2024 4:09 AM EDT us Hill Boo MD LAB BLOOD ORDERABLES Final Resu lt Performing Organization Address [facility] Co de Phone Number [facility] [address] [phone] * (ABNORMAL) Lactate dehydrogenase (LDH) (11/30/2024 3:40 AM EDT) LDH 261(H) 125 - 220 U/L 11/30/2024 12:18 PM EDT [facility] Blood Venipuncture / Unknown 11/30/2024 3:40 AM EDT 11/30/2024 4:09 AM EDT us Hill Boo MD LAB BLOOD ORDERABLES Final Resu lt Performing Organization Address City/[facility] Co de Phone Number [facility] [address] [phone] * Iron, serum (11/30/2024 3:40 AM EDT) Iron 64 50 - 170 ug/dL 11/30/2024 8:10 AM EDT [facility] Blood Venipuncture / Unknown 11/30/2024 3:40 AM EDT 11/30/2024 4:09 AM EDT us Timothy Bai MD LAB BLOOD ORDERABLES Final Result Performing Organization Address [facility]/ZIP Co de Phone Number [facility] [address] [place] [address], [facility] [phone] * Folate, Serum (11/30/2024 3:40 AM EDT) Folate 7.0 7.0 - 31.4 ng/mL 11/30/2024 6:08 PM EDT [facility] Blood Venipuncture / Unknown 11/30/2024 3:40 AM EDT 11/30/2024 4:09 AM EDT us Rommel Batista MD LAB BLOOD ORDERABLES Final Res ult Performing Organization Address [facility]/ZIP Co de Phone Number [facility] [address] [phone] * Vitamin B12 (11/30/2024 3:40 AM EDT) Vitamin B12 678 213 - 816 pg/mL 11/30/2024 8:10 AM EDT [facility] Blood Venipuncture / Unknown 11/30/2024 3:40 AM EDT 11/30/2024 4:09 AM EDT us Timothy Bai MD LAB BLOOD ORDERABLES Final Result [facility] [address] [place] [id number], [facility] [phone] * EKG-SCANNED (11/30/2024) Only the most recent of3 resultswithin the time period is included. Narrative 11/30/2024 Ordered by an unspecified provider. us Default Scanning Provider SCAN ORDERS Final Result from Last 3 Months Insurance [facility] ADV [facility] Advance Directives For more information, please contact: [phone] * Full Code (Latest Code Status on File) Date Activated Date Inactivated Comments 11/30/2024 2:06 AM 12/14/2024 6:30 PM Care Teams Printing Agent Relationship Specialty Start Date End Date Provider, Not In System [place] PCP - General 12/14/24
--- OUTSIDE RECORDS SUMMARY | 2025-01-03 13:30 | XMS_ITS | Encounter Summary ---
Author Organization [facility] Address [address] [place] [address] Care Team Providers Care Supervisor Litharge Name Role Phone [facility], [facility]Doc Primary Care Provider Encounter Details Date Type Department Care Team (Latest Contact Info) Description 11/30/2024 Travel Social History Tobacco Use Types Packs/Day Years [...] Record ed How often does anyone, virginiasean yoel family and friends, physically hurt you? Never 11/30/2024 How often does anyone, virginiasean diallo family and friends, insult or talk down to you? Never 11/30/2024 How often does anyone, virginiasean diallo family and friends, threaten you with [...] Do you speak a language other than Kiswahili at [facility]? No 11/30/2024 Do you want help [...] used il legal drugs? Never 11/30/2024 Comments Unknown Sex and Gender Information Value Date Recorded Sex Assigned at Not on file Legal Sex Female 9:06 PM CDT Gender Identity Not on file Sexual Orientation Not on file documented as of this encounter Plan of Treatment Upcoming Encounters Date Type Department Care Team (Late st Contact Info) Description 01/27/2025 10:45 AM EDT Office Visit [facility] Electrophysiology [address] [place] [address] Quincy Foss MD [address] [place] [address] documented as of this encounter Visit Diagnoses Not on filedocumented in this encounter Care Teams Supervisor Litharge Relationship Specialty Start Date End Date [facility], [facility] Find-a-Doc [place] [id number] PCP - General 11/30/24 12/13/24 documented as of this encounter
--- OUTSIDE RECORDS SUMMARY | 2025-01-03 13:30 | XMS_ITS | Encounter Summary ---
Author Organization [facility] Address [address] [place] [address] Care Team Providers Care Country Printer Name Role Phone Larry Bedolla MD Primary Care Provider + [phone] Reason for Referral * Consultation (Routine) - Closed Specialty Diagnoses / Procedures Referred By Mayela may Referred To Contact Hepatology Diagnoses Bilious vomiting with nausea Anticentromere antibodies present Thrombopenia (CMS/HCC) Stage 3 hepatic fibrosis Raul Kincaid PA [address] [place] [address] Phone: tel: fax: Referral ID Status Reason Start Date Expiration Date V isits Requested Visits Authorized [id number] Closed Specialty Services Required 09/27/2021 03/29/2023 1 1 Encounter Details Date Type Department Care Team (Late st Contact Info) Description 09/27/2021 Community [facility] [address] [place] [address] Raul Kincaid PA [address] [place] [address] Bilious vomiting with nausea (Primary Dx); Anticentromere antibodies present; Thrombopenia (CMS/HCC); Stage 3 hepatic fibrosis Social History Tobacco Use Types Packs/Day Years Used Date Smoking Tobacco: Every Day Alcohol Use Standard Drinks/Week Comments Yes 0 (1 standard drink = 0.6 oz pur e alcohol) Comments Unknown Sex and Gender Information Value Date Recorded Sex Assigned at Not on file Legal Sex Female 6:32 PM EDT Gender Identity Not on file Sexual Orientation Not on file documented as of this encounter Plan of Treatment Scheduled Referrals Name Type Priority Associated Diagnoses Order Schedule Ambulatory referral to Gastroenterology Outpatient Referral Routine Bilious vomiting with nausea Anticentromere antibodies present Thrombopenia (CMS/HCC) Stage 3 hepatic fibrosis 1 Occurrences starting 09/27/2021 until 03/30/2023 documented as of this encounter Visit Diagnoses Diagnosis Bilious vomiting with nausea- Primary Anticentromere antibodies present Thrombopenia (CMS/HCC) Unspecified thrombocytopenia Stage 3 hepatic fibrosis documented in this encounter Care Teams Country Printer Relationship Specialty Start Date End Date Larry Bedolla MD [address] [place] [address] PCP - General 12/08/20 documented as of this encounter
--- OUTSIDE RECORDS SUMMARY | 2025-01-03 13:30 | XMS_ITS | Encounter Summary ---
Author Organization [facility] Address [address] [place] [address] Care Team Providers Care Gynecological Assistant Name Role Phone Larry Bedolla MD Primary Care Provider + [phone] Reason for Visit * Reason Comments Med Refill Encounter Details Date Type Department Care Team (Late st Contact Info) Description 04/12/2021 Refill [place] Endocrinology [address] [place] [address] Lina Lowe, FARM ADVISER [address] [place] [address] Social History Tobacco Use Types Packs/Day Years [...] on filedocumented in this encounter Care Teams Gynecological Assistant Relationship Specialty Start Date End Date Larry Bedolla MD [address] [place] [address] PCP - General 12/08/20 documented as of this encounter
--- OUTSIDE RECORDS SUMMARY | 2025-01-03 13:30 | XMS_ITS | Clinical Summary ---
Author Organization [facility] [place] [address] Care Team Providers Care Manager Meat Name Role Phone Unavailable Primary Care Provider Unavailabl e Social History Tobacco Use Types Packs/Day Years Used Date Smoking Tobacco: Never Assessed Comments Unknown Sex and Gender Information Value Date Recorded Sex Assigned at Not on file Legal Sex Female 6:34 AM EDT Gender Identity Not on file Sexual Orientation Not on file Plan of Treatment Health Maintenance Due Date Last Done Comments Annual Wellness Exam 1965 Hepatitis C Screening 1980 DTaP/TDaP/Td (1 - Tdap) 1981 Cologuard 2007 Colon Cancer Screening 2007 Colonoscopy 2007 FIT 2007 Sigmoidoscopy 2007 Virtual Colonography 2007 Pneumococcal Vaccine 50+ (1 of 1 - PCV) 2012 Zoster (1 of 2) 2012 COVID-19 Vaccine (2023-2 5 season) 2024 Influenza Vaccine (Season Ended) 2025 Hepatitis B Vaccine Aged Out No longe r eligible based on patient's age to complete this topic Meningococcal B Vaccine Aged Out No l onger eligible based on patient's age to complete this topic
--- OUTSIDE RECORDS SUMMARY | 2025-01-03 13:30 | XMS_ITS | Clinical Summary ---
Author Organization [facility] Address [address] [place] [address] Care Team Providers Care Office Worker Name Role Phone Larry Bedolla MD Primary Care Provider + [phone] Allergies No known active allergies Medications bisoprolol (Zebeta) 10 MG tablet Take 10 mg by mouth 1 (one) time each day. 1 Active clopidogrel (Plavix) 75 MG tablet TAKE 1 TABLET BY MOUTH ONCE DAILY FOR PLATELET INHIBITOR 1 Active cyclobenzaprine (Flexeril) 10 MG tablet 1 po TID prn muscle spasms 9 Active FLUoxetine (PROzac) 20 MG capsule TAKE 3 CAPSULES BY MOUTH DAILY FOR DEPRESSION 0 Active fluticasone (Flonase) 50 MCG/ACT nasal spray SPR ONCE IEN QD 0 Active BD Pen Needle Joyce 2nd Gen 32G X 4 MM misc USE TID WITH INJECTIONS 0 Active UltiCare Insulin Syringe 31G X 5/16 1 ML misc USE WITH INJECTIONS THREE TIMES DAILY 1 Active FreeStyle lancets USE TO TEST TWICE DAILY 1 Active lisinopril 10 MG tablet Take 10 mg by mouth 1 (one) time each day. 1 Active ondansetron ODT (Zofran-ODT) 4 MG disintegrating tablet DISSOLVE 1 TABLET ON THE TONGUE EVERY 8 HOURS NEEDED FOR NAUSEA 1 Active traZODone (Desyrel) 50 MG tablet TAKE 1 TABLET BY MOUTH NIGHTLY AT BEDTIME. MAY REPEAT IN 1 HOUR IF STILL AWAKE 0 Active Trintellix 20 MG tablet Take 1 tablet by mouth 1 (one) time each day. 1 Active glucose blood test strip USE TO TEST BID 0 Active Glucose Blood (FREESTYLE LITE TEST ) TEST TWO TIMES A DAY 1 Active FreeStyle lancets USE ONE LANCET TWICE DAILY ( PT MUST MAKE APPT FOR REFILLS) 1 Active insulin syringe-needle U-100 31G X 12/10 0.3 mL misc 3 INJECTIONS DAILY 1 Active HYDROcodone-acetam inophen ([place]) 10-325 MG tablet 3 Active spironolactone (Aldactone) 25 MG tablet Take 25 mg by mouth 1 (one) time each day. 3 Active furosemide (Lasix) 40 MG tablet Take by mouth 2 (two) times a day. 3 Active Insulin Lispro (HUMALOG IJ) Inject as directed. Active dapagliflozin (Farxiga) 5 MG tabletIndications: CKD (chronic kidney disease) stage 2, GFR 60-89 ml/min,Microalbumi ruperto,Coronary artery disease involving chefornak heart with angina pectoris and documented spasm, unspecified vessel or lesion type (CMS/HCC) Take 1 tablet (5 mg total) by mouth 1 (one) time each day. 30 tablet 1 3 Active potassium chloride CR (Klor-Con M20) 20 MEQ ER tablet 3 Active Ozempic, 0.25 or 0.5 MG/DOSE, 2 MG/3ML solution pen-injector 3 Active gabapentin (Neurontin) 800 MG tablet 3 Active Aspirin Low Dose 81 MG EC tablet 3 Active NovoLOG MIX 70/30 FLEXPEN (70-30) 100 UNIT/ML injection pen 3 Active metFORMIN XR (Glucophage-XR) 500 MG 24 hr tablet Take 1 tablet (500 mg) by mouth 1 (one) time each day with dinner. 4 Active Active Problems Problem Noted Date Diagnosed Date DDD (degenerative disc disease), lumbar 10/14/19 19 Leg pain 10/13/2018 Vitamin D deficiency 09/03/2018 JEANA positive 08/05/2017 DJD (degenerative joint disease), lumbar 018 Low back pain 08/05/2017 Sleep disturbance 08/05/2017 Viral gastroenteritis 08/28/2016 CAD (coronary artery disease) 02/07/2016 Gastroenteritis 08/30/2015 Peripheral neuropathy 01/05/2015 Arthritis 10/22/2014 Depression 10/22/2014 Hyperlipidemia 10/22/2014 Hypertension 10/22/2014 Insulin dependent type 2 diabetes mellitus 10/22 Obesity 10/22/2014 CKD (chronic kidney disease) 10/10/2014 Immunizations Immunization Administration Dates Next Due Hep A / Hep B 01/02/2022 Hep A, Adult 11/21/2021 Family History Medical History Relation Name Comments Hyperlipidemia Father Hypertension Father Other cancer Father Diabetes Mother Hypertension Mother Other cancer Mother Stomach cancer Mother Cancer Other 1 Diabetes Other 2 Hypertension Sister 1 Obesity Sister 2 Hyperlipidemia Sister 3 Relation Name Status Comments Father Mother Other 1 Other 2 Sister 1 Sister 2 Sister 3 Social History Tobacco Use Types Packs/Day Years [...] Sign Reading Time Taken Comments Blood Pressure 117/63 01/14/2023 8:18 AM EDT Pulse 86 01/14/2023 8:18 AM EDT Temperature 36.7 C (98.1 F) 01/02/2022 1:15 PM EDT Respiratory Rate 14 08/05/2017 1:52 PM EST Oxygen Saturation 94% 01/02/2022 1:15 PM EDT Inhaled Oxygen Concentration - - Weight 93.9 kg (207 lb) 01/14/2023 8:18 AM EDT Height 167.6 cm (5' 6 ) 01/14/2023 8:18 AM EDT Body Mass Index 33.41 01/14/2023 8:18 AM EDT Plan of Treatment Health Maintenance Due Date Last Done Comments [facility]-HIV Screening 1962 [facility]-Hepatitis C Screening 1962 [facility]-Medicare Annual Wellness (AWV) 1962 [facility]-/Child/Adol SDOH Screenings 1962 Diabetes: Dental Exam 1972 [facility]- SDOH Screenings 1980 [facility]-Adult SDOH Screenings 1980 [facility]-Pap Smear 1983 [facility]-Cervical Cancer Screening 1992 [facility]-HPV/Cotest 1992 CT Colonography 2007 Colonoscopy 2007 FIT-DNA 2007 FIT 2007 FOBT 2007 Sigmoidoscopy 2007 [facility]-Colorectal Cancer Screening 2007 [facility]-Breast Cancer Screening 2012 [facility]-Diabetes: Hemoglobin A1C 07/23/2016 01/24/2016, 01/05/2015 [facility]-RSV Vaccine: 60+ Years or (1 - Risk 60-74 years 1-dose series) 2022 [facility]-Depression Screening 01/02/2023 01/02/2022 [id number] Vaccine ( season) 2024 05/13/2021, 04/15/2021, 11/08/2020, Additional history exists [facility]-Influenza Vaccine (Season Ended) 2025 05/15/2020, 04/25/2019, 05/01/2018, Additional history exists [facility]-Pneumococcal Vaccine: 50+ Years (3 of 3 - PCV20 or PCV21) 05/15/2025 05/15/2020, 04/24/2020, 07/09/2016 [facility]-DTaP,Tdap,and Td Vaccines (2 - Td or Tdap) 02/25/2031 02/25/2021 [facility]-Zoster Vaccines Completed 05/31/2021, 08/15/2020, 05/31/2020 [facility]-Hepatitis A Vaccines Aged Out 01/02/2022, 10/27 No longer eligible based on patient's age to complete this topic [facility]-Obesity Intervention Completed 11/04/2022 HPV Vaccines Aged Out No longer eligi ble based on patient's age to complete this topic [facility]-HIB Vaccines Aged Out No longer e ligible based on patient's age to complete this topic [facility]-IPV Vaccines Aged Out No longer e ligible based on patient's age to complete this topic [facility]-Rotavirus Vaccines Aged Out No lo nger eligible based on patient's age to complete this topic Procedures Procedure Name Priority Date/Time Associated Diagnosis Comments HEMOGLOBIN A1C Routine 01/24/2016 1:47 PM EDT from Last 3 Months or Most Recently Relevant to Health Maintenance Results * (ABNORMAL) Hemoglobin A1c (01/24/2016 1:47 PM EDT) Hemoglobin A1c 13.2(H) 4.7 - 6.0 % [facility] Comment: (NOTE) Glycohemoglobin Reference Range, 0 years and up: 4.7 - 6.0% . Hemoglobin A1c values of 5.7 - 6.4% indicate an increased risk for developing diabetes mellitus (prediabetes). Hemoglobin A1c values greater than or equal to 6.5% are diagnostic of diabetes mellitus. . HbA1c assay performed by an ion-exchange chromatography method that is certified traceable to the DCCT. 01/24/2016 1:47 PM EDT 01/24/2016 6:17 PM EDT Sherri Adkins APRN LAB BLOOD ORDERABLES Final Result [facility]QUEST from Last 3 Months or Most Recently Relevant to Health Maintenance Insurance [facility] MEDICAID [employer] MED[employer]ARE Care Teams Office Worker Relationship Specialty Start Date End Date Larry Bedolla MD [address] [place] [id number] PCP - General 12/08/20
--- OUTSIDE RECORDS SUMMARY | 2025-01-03 13:31 | XMS_ITS | Encounter Summary ---
Author Organization [facility] Address [address] [place] [address] Care Team Providers Care Low Voltage Electrician Name Role Phone Larry Bedolla MD Primary Care Provider + [phone] Encounter Details Date Type Department Care Team ([facility] st Contact Info) Description 01/21/2022 Community [facility] [address] [place] [address] Larry Bedolla MD [address] [phone] Central stenosis of spinal canal (Primary Dx) Social History Tobacco Use Types Packs/Day Years Used Date Smoking Tobacco: Never Smokeless Tobacco: Never Alcohol Use Standard Drinks/Week Comments Never 0 (1 standard drink = 0.6 oz pur e alcohol) PHQ-2 Answer Date Recorded Patient Health Questionnaire-2 Score 0 01/02/2022 Comments Unknown Sex and Gender Information Value Date Recorded Sex Assigned at Not on file Legal Sex Female 6:32 PM EDT Gender Identity Not on file Sexual Orientation Not on file COVID-19 Exposure Response Date Recorded In the last 10 days, have yo u been in contact with someone who was confirmed or suspected to have Coronavirus/COVID-19? No / Unsure 01/02/2022 10:22 AM EDT documented as of this encounter Plan of Treatment Not on file documented as of this encounter Visit Diagnoses Diagnosis Central stenosis of spinal canal- Primary documented in this encounter Additional Health Concerns Assessment Noted Time A fall risk assessment has been complete d for the patient 01/02/2022 1:17 PM EDT documented as of this encounter Care Teams Low Voltage Electrician Relationship Specialty Start Date End Date Larry Bedolla MD [address] [place] [address] PCP - General 12/08/20 documented as of this encounter
[2025-01-03 13:34] LABS: Ammonia 23 umol/L (9-30)
[2025-01-03 14:17] LABS: MANUAL DIFFERENTIAL MANUAL DIFFERENTIAL (MANUAL DIFF); White Blood Count 1.7 K/mm3 (4.8-10.8)
[2025-01-03 14:21] LABS: Albumin Level 3.6 g/dl (3.5-5.0); Chloride 107 mmol/L (98-107); Sodium 144 mmol/L (136-145)
[2025-01-03 14:22] LABS: Potassium 4.3 mmoL/L (3.5-5.1)
[2025-01-03 14:24] LABS: Alanine Aminotransferase 22 U/L (12-78); Alkaline Phosphatase 90 U/L (38-126); Anion Gap 9.3 mEq/L (5-15); Aspartate Amino Transferase 43 U/L (14-36); Bilirubin,Total 1.5 mg/dl (0.2-1.3); Blood Urea Nitrogen 43 mg/dl (7-17); Carbon Dioxide 32 mmol/L (22.0-30.0); Estimated Glomerular Filt Rate 16 ml/min (>60); GFR (African American) 19 ML/MIN (>60); Globulin 3.7 g/dL (1.3-3.2); Iron 68 ug/dL (37-170); Total Protein,Serum 7.3 g/dl (6.3-8.2)
[2025-01-03 14:25] LABS: Calcium 9.3 mg/dl (8.4-10.2); Glucose 173 mg/dl (74-100)
[2025-01-03 14:34] LABS: Total Iron Binding Capacity 203 ug/dL (265-497)
[2025-01-03 14:40] LABS: INR 1.25 (0.9-1.1); Prothrombin Time 13.6 seconds (10.1-12.5)
[2025-01-03 15:00] LABS: Ferritin 146 ng/ml (11.1-264)
[2025-01-03 15:19] LABS: Lymphocytes % 24 % (10-50); Monocytes % 6 % (2-9); Neutrophils % 70 % (42-76); Total Cells Counted 50
[2025-01-03 15:32] LABS: Platelet Estimate Moderate Decrease
[2025-01-03 15:36] LABS: RBC Morphology Normal
[2025-01-04 03:56] LABS: AFP, Tumor Marker <1.8 ng/mL (0.0-9.2)
== END 2025-01-03 23:59 | disposition home or self-care (01) ==
LOC: LAB 13:08
PROVIDERS: PCP Family Medicine; Visit Provider Nurse Practitioner Family
DX: K74.60 Unspecified cirrhosis of liver (principal)
CPT/HCPCS: 36415; 80053; 82105; 82140; 82728; 83540; 83550; 85007; 85025; 85610

== ENCOUNTER 2025-01-10 10:27 | Outpatient (CLI) | payer MEDICARE, MEDICAID, SELFPAY ==
--- OUTSIDE RECORDS SUMMARY | 2018-11-16 06:00 | XMS_ITS | Continuity of Care Document ---
Author Organization [facility] Address [address] [place] [phone] Phone Care Team Providers Care Custodian Manager Name Role Phone Dane Pink MD Unavailable [...] Provider Providers Copied on Encounter Connor [place] [facility], [address] [place] [address], [id number], tel:[phone] JENNIFER Torres [place] No Information 9 Apryl Vela. [address] [place] [address], [id number] , . tel:[phone] OFFICE/OUTPA TIENT VISIT, EST Connor [place] [facility], [address] [place] [address], [address] [place] [address], tel:[phone] [place] inflammation ck OS (chief complaint) Iritis, recurrent, left eye 9 Apryl Vela. [address] [place] [address], [address] [place] [address] , . tel:[phone] Referring Provider: Self Referred Jose C Connor [place] [facility], [address] [place] [address], [id number], tel:[phone] JENNIFER Torres [place] Anterior Seg ck (chief complaint) Iritis, recurrent, left eye 9 Apryl Vela. [address] [place] [address], [id number] , . tel:[phone] Referring Provider: Maria Teresa Santos, [employer] [address] [place] [address], [facility]. tel:[phone] Family History Family Member Type Diagnosis Age At Onset Problem (finding) Family history of Diabe reynold mellitus Problem (finding) Family history of Cardi ovascular disease Problem (finding) Family history of glauc haroon Payers Payer name Insurance type Covered green party ID Authoriza tion(s) Medicare [facility] [id number] Social History Type Description Quantity Date Captured [...]
--- OUTSIDE RECORDS SUMMARY | 2024-11-30 01:43 | XMS_ITS | Encounter Summary ---
Author Organization [facility] [employer] Address [address] [place] [address] Care Team Providers Care Surveyor Helper Rod Name Role Phone [facility] Connection, Find-A-Doc Primary Care Provider Provider, Not In System Primary Care Provider Un available Reason for Visit * Auth/Cert (Routine) Specialty Diagnoses / Procedures Referred By Mayela may Referred To Contact Diagnoses Anasarca ACUTE RENAL FAILURE [address] Medical Telemetry Unit [address] [place] [phone] Phone: tel: fax: [address] Medical Telemetry Unit [address] [place] [address] Phone: tel: fax: Referral ID Status Reason Start Date Expiration Date Visits Re quested Visits Authorized [id number] 1 1 Encounter Details Date Type Department Care Team (Late st Contact Info) Description 11/30/2024 1:43 AM EDT - 12/14/2024 5:30 PM EDT Hospital Encounter [address] Medical Telemetry Unit 1 [place] [address] Albert Garcia MD [address] [place] [address] Timothy Bai MD [address] [place], [place] [id number] Mary Carmen Mcfadden MD [address] [facility] [address] [place], [place] [id number] Venkatesh Stephen MD [address] [facility] [address] [place], [place] [id number] David Coffman PA-C [address] [place] [address] Huey Hurtado MD [address] [facility] [address] [place], [place] [id number] Keren (Primary Dx); Anasarca Discharge Disposition: Home [...] Do you [facility] a [facility] No 11/30/2024 Do you [...] [facility] Discharge Summary Patient Name: Mary Gar : 1960 Date of Admission: 11/30/2024 Date of Discharge: 12/14/2024 Primary Care Physician: Not In System Provider Hospital Course Decal Decorator(s): Discharge Diagnosis: Anasarca Cirrhosis Paroxysmal atrial fibrillation/nonsustained ventricular tachycardia. Pancytopenia. Acute hypoxemic and hypercapnic respiratory failure. Acute diastolic heart failure present on admission. Acute kidney injury. Diabetes mellitus. Urine retention. Likely obstructive sleep apnea. Reason for Hospitalization: Anasarca [R60.1] Hospital Course Mary Gar is a 64 y.o. female presenting with past medical history of NAFLD October 2024, hypertension, hyperlipidemia, diabetes, CKD, CAD, arthritis. Patient presented to [facility] [place] [facility] with swollen abdomen, abdominal discomfort and bilateral lower extremity pitting edema.Patient's BUN/creatinine elevated, and patient subsequently transferred to [facility] for hepatorenal syndrome evaluation. Admits to [...] days. Patient's niece forced patient to visit [facility] emergency room today she really loves me. [...] units of packed red blood cells. Hematology/oncology wasconsulted. Underwent a bone marrow biopsy which was unremarkable. Stendal that she had anemia of chronic disease [...] Your Medications These medications were sent to [facility] at [facility] [address] [place] [address] [address] amiodarone 200 MG tablet ergocalciferol 1,250 mcg (50,000 unit) capsule lactulose 10 gram/15 mL solution pantoprazole 40 MG tablet rifAXIMin 550 mg These [facility] [address] [address] metOLazone 2.5 MG tablet tamsulosin 0.4 mg [...] Contact information for follow-up [facility] [address] [facility] [address] Next Steps: Go in 2 week(s) Instructions: Nephrology follow up 12/30/24 @8:45am Follow up with NAL in 1-2 weeks with renal function panel Primary care provider (PCP) Next Steps: Follow up Monika Hernandez APRN [facility] Primary Care [address] [place] [address] Next Steps: Go in 1 week(s) Instructions: PCP follow up 12/22/24 @3:00pm Time Spent on Discharge: I spent 35 minutes in iojy-gm-xxbt time with the patient and nursing staffconcerning [...] 12/07/2024 10:20 AM EDT Patient Name: Mary Gar : 1960 Date of Admission: 11/30/2024 Date [...] Acute renal failure Reason for Admission: Mary Gar is a 64 y.o. female presenting with past medical history of NAFLD October 2024, hypertension, hyperlipidemia, diabetes, CKD, CAD, arthritis. Patient presented to [facility] [place] [facility] with swollen abdomen, abdominal discomfort and bilateral lower extremity pitting edema.Patient's BUN/creatinine elevated, and patient subsequently transferred to [facility] for hepatorenal syndrome evaluation. Admits to [...] days. Patient's niece forced patient to visit [facility] emergency room today she really loves me. [...] 10-325 mg per tablet Commonly known as: NORISIDRO Notes to patient: Limit Tylenol (acetaminophen) from [...] Your Medications These medications were sent to [facility] at [facility] [address] [address] amiodarone 200 MG tablet amoxicillin-clavulanate 500-125 mg [...] to 2-week Nephrology 1 to 2-week Disposition [facility] Time Spent: 45 min Electronically signed [...] renal function - No emergent need of WELL POINT PUMPING SUPERVISOR - Monitor H/H and transfuse for Hgb less than 7.0 Follow up with NAL in 1-2 weeks with renal function panel Hema Cervantes MD 12/14/24 12:15 PM * KENNEY Zaragoza - 12/14/2024 12:17 PM EDMAXWELLumemmanuelle: Case Management DCP - Home with Home [...] additional home health needs. Patient/family provided with [facility] approved choice list and Patient choice [...] Inpatient Physical Therapy Treatment Patient Name: Mary Gar Date of : 1960 Date of Treatment: [...] Score Raw score=12 t-Scale score=35.33 Standard error=3.08 [facility] 0-100%=68.66% MDC=4.72 A raw score of >= [...] I concur with their documentation of Mary Gar. Electronically signed by Alberto Love PT, DPT - 12/15/24 - 10:54 AM EST * David Coffman PA-C - 12/13/2024 3:35 PM EDT [facility] Progress Note Patient: Mary Gar Subjective Chief Complaint / Reason for Follow-Up Mary Gar is a 64 y.o. female on hospital [...] No nausea or vomiting. Blas catheter remains inplace. Denies fevers or chills. No rash or [...] Hematology/oncology following. Acute hypoxemic/hypercapnic respiratory failure - Stendal to be due to pulmonary edema from [...] intakes reported. 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 Requested chicken noodle soup for lunch. Agreeable to ONS TID. 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 She initially presented to [facility] with swollen abdomen, abdominal discomfort, and bilateral lower extremity pain. Her creatinine was elevated and as a result, she was transferred to [facility] for he patorenal syndrome. Upon arrival [...] ABG 7.28, pCO2 51, pO2 157 BiPAP /6. Patient refused higher pressure Plan for paracentesis, [...] BODY REMOVAL; Surgeon: Scott Daley MD; Location: [facility]; Service: Gastroenterology; Laterality: N/A; Allergies: No [...] POC-GLUCOSE 127 (H) 70 - 110 mg/dL Fishing Rod Trimmer [id number] Glucose, Nova Meter Status: Abnormal Collection Time: 12/13/24 11:15 AM Result Value Ref Range POC-GLUCOSE 221 (H) 70 - 110 mg/dL Fishing Rod Trimmer [id number] Glucose, Nova Meter Status: Abnormal Collection Time: 12/13/24 4:24 PM Result Value Ref Range POC-GLUCOSE 156 (H) 70 - 110 mg/dL Fishing Rod Trimmer [id number] Glucose, Nova Meter Status: Abnormal Collection Time: 12/13/24 8:20 PM Result Value Ref Range POC-GLUCOSE 186 (H) 70 - 110 mg/dL Fishing Rod Trimmer [id number] Radiology Radiology Results (last day) No results found for the last 24 hours. Microbiology: Microbiology Results (last 7 days) Procedure Component Value Units Date/Time Fungus Culture W/ROSA MARIA Or Nimisha Ink [[id number]] Collected: 11/30/24 160 Order Status: Completed Specimen: Peritoneal Fluid from Body Fluid Updated: 12/07/24 170 Result No fungus isolated at 1 week. ROSA MARIA Prep No fungal elements seen Narrative: Specimen Description: peritoneal fluid AFB Culture And Stain [[id number]] Collected: 11/30/241602 Order Status: Completed Specimen: Peritoneal [...] to continue with albumin/diuretics no indication for WELL POINT PUMPING SUPERVISOR No significant pleural effusion for thoracentesis If needed repeat chest x-ray. Otherwise continue diuresis Pulmonary will sign off. Please call for any issues Case discussed during round. I have personally evaluated the patient and performed a bdyd-ed-tlnb diagnostic evaluation on this patient; I have reviewed history, performed physical examination, reviewed laboratory studies. , andreviewed images independent of radiologist. I have actively directed the medical care, formulated assessemnt and plan of care. Patient requires a high complexity of decision making for assessment. Voice sales special agent technology (Neul) is used for dictation of this note and sound-alike words might be erroneously placed despite reviewing the note for accuracy.Errors in dictation may reflect use of voice recognition software and not all errors in sales special agent may have been detectedprior to signing * [...] renal function - No emergent need of WELL POINT PUMPING SUPERVISOR - Monitor H/H and transfuse for Hgb less than 7.0 Follow up with NAL in 1-2 weeks with renal function panel Hema Cervantes MD 12/13/24 12:15 PM * Jaydemalinda Hansen PTA - 12/13/2024 10:28 AM EDT Images from the original note were not included. Inpatient Physical Therapy Treatment Patient Name: Mary Gar Date of : 1960 Date of Treatment: [...] I concur with their documentation of Mary Gar. Electronically signed by Alberto Love PT, DPT - 12/15/24 - 10:54 AM EST * Deysi Foss MD - 12/13/2024 8:39 AM EDT EP progress note Patient Name: Mary Gar Admission Date: 11/30/2024 Primary Care Provider: JACKIE Find-a-Doc Chief Complaint/Reason for Consult: No chief complaint on file. History of Present Illness: Mary Gar is a 64 y.o. female, admitted on: 11/30/2024 1:43 AM. presented to [facility] with swollen abdomen, abdominal discomfort and bilateral lower extremity pitting edema. Patient's BUN/creatinine elevated, and patient subsequently transferred to [facility] for hepatorenal syndrome evaluation. Admits to [...] Carmen Mcfadden MD 40 mg at 12/12/24 214 prochlorperazine (COMPAZINE) injection 10 mg 10 mg [...] Culture And Stain AFB Culture And Stain [facility] Non-Dairy Nutrition Specialist Cytology [facility] Non-Dairy Nutrition Specialist Cytology DIFFERENTIAL, BODY FLUID DIFFERENTIAL, BODY FLUID Body Fluid/CSF - Path Review () Body Fluid/CSF - Path Review () [facility] BONE MARROW SMEAR, ASPIRATION, AND STAIN [facility] BONE MARROW SMEAR, ASPIRATION, AND STAIN CANCELED: [...] BODY REMOVAL; Surgeon: Scott Daley MD; Location: [facility]; Service: Gastroenterology; Laterality: N/A; Allergies: No [...] Normal range of motion. Integumentary: Warm, Dry, [place]. Neurologic: No obvious focal deficit Psychiatric: Cooperative, Appropriate mood & affect. Labs, Imaging, and Other Studies: Echo Results (last 7 days) Procedure Component Value Units Date/Time ECHO COMPLETE (DOPPLER / COLOR) W OR WO CONTRAST [[id number]] Collected: 11/30/24 0725 Order Status: Completed Updated: 11/30/24 1046 Narrative: TRANSTHORACIC ECHOCARDIOGRAPHY REPORT Demographics Patient Name: RIN JONES : 1960 Age: 64 year(s) Corporate ID Number: [id number] Gender Female Postpartum Nurse: Giovanna Rock Height: 67 inches [facility] Referring Physician: HUEY HURTADO Weight: 225 pounds [...] 1.35 m/s E/A ratio: 0.97 m/s Volume kcquzuyee772.99 LV length: 8.51 cm ml Volume srfzohqv56.96 ml LVOT diameter: 1.79 cm Normal sized [...] Valve TR velocity: 2.51 m/s TR gradient: 25.56924 mmHg Estimated RAP: 3 mmHg RVSP: 28.12 [...] (DOPPLER / COLOR) W OR WO CONTRAST [[id number]] Collected: 11/30/24724 Order Status: Completed Updated: 11/30/241045 Narrative: TRANSTHORACIC ECHOCARDIOGRAPHY REPORT Demographics Patient Name: RIN JONES : 1960 Age: 64 year(s) Corporate ID Number: [id number] Gender Female Postpartum Nurse: Giovanna Rock Height: 67 inches [facility] Referring Physician: HUEY HURTADO Weight: 225 pounds [...] 1.35 m/s E/A ratio: 0.97 m/s Volume acuvcosvu307.99 LV length: 8.51 cm ml Volume .96 [...] Valve TR velocity: 2.51 m/s TR gradient: 25.05420 mmHg Estimated RAP: 3 mmHg RVSP: 28.12 [...] imaging. Assessment and Plan: *Paroxysmal Atrial Fib [id number] of 3 to 4 also have some [...] Patient cannot take anticoagulation for A-fib despite [id number]-NQGb because of multiple issue including GI bleeding [...] - [facility] Pending Discharge Plan Progress Note Case Management received call from Vesna Gibson (phone # [phone]) health education coordinator with [facility] requesting notes from weekend. MANGO faxed weekend notes via [place] to Ez Gibson to fax # [phone]. Patient will require a precert if a bed is offered. Update, 12/13, 3:07 pm Patient and family's first choice, [facility] have [facility] due to not being able to meet and accommodate patient's clinical needs. No information regarding how. Update 3:45 pm - Per facility's admission associate program manager, patient is requiring BiPaP 'too much' (24/ per facility words), requiring a paracentesis too often, no activity tolerance, therefore patient is not rehab appropriate. MANGO asked Alexander to review referral to inquire about potential [...] purposes. CM has updated treatment team via [employer] chat that are signed into patient's chart on 12/13 - QUIQUE, bedside RN, bedside PRACTICE BUSINESS ASST, PT, and OT. Patient has other offers from the following: [facility] and [facility] [place] [place]; offered bed prior to [place]; follow up with [facility] via [place], [place] KENNEY Zaragoza * Norm Cameron MD - 12/12/2024 8:47 PM EDT EP progress note Patient Name: Mary Gar Admission Date: 11/30/2024 Primary Care Provider: JACKIE Find-a-Doc Chief Complaint/Reason for Consult: No chief complaint on file. History of Present Illness: Mary Gar is a 64 y.o. female, admitted on: 11/30/2024 1:43 AM. presented to [facility] with swollen abdomen, abdominal discomfort and bilateral lower extremity pitting edema. Patient's BUN/creatinine elevated, and patient subsequently transferred to [facility] for hepatorenal syndrome evaluation. Admits to [...] Anaerobic Culture Fungus Culture W/ROSA MARIA Or Inmisha Ink Fungus Culture W/ROSA MARIA Or Nimisha Ink AFB Culture And Stain AFB Culture And Stain [facility] Non-Dairy Nutrition Specialist Cytology [facility] Non-Dairy Nutrition Specialist Cytology DIFFERENTIAL, BODY FLUID DIFFERENTIAL, BODY FLUID Body Fluid/CSF - Path Review () Body Fluid/CSF - Path Review () [facility] BONE MARROW SMEAR, ASPIRATION, AND STAIN [facility] BONE MARROW SMEAR, ASPIRATION, AND STAIN CANCELED: [...] BODY REMOVAL; Surgeon: Scott Daley MD; Location: [facility]; Service: Gastroenterology; Laterality: N/A; Allergies: No [...] Normal range of motion. Integumentary: Warm, Dry, [place]. Neurologic: No obvious focal deficit Psychiatric: Cooperative, Appropriate mood & affect. Labs, Imaging, and Other Studies: Echo Results (last 7 days) Procedure Component Value Units Date/Time ECHO COMPLETE (DOPPLER / COLOR) W OR WO CONTRAST [[id number]] Collected: 11/30/24724 Order Status: Completed Updated: 11/30/241045 Narrative: TRANSTHORACIC ECHOCARDIOGRAPHY REPORT Demographics Patient Name: RIN JONES : 1960 Age: 64 year(s) Corporate ID Number: [id number] Gender Female Postpartum Nurse: Giovanna Rock Height: 67 inches [facility] Referring Physician: HUEY HURTADO Weight: 225 pounds Interpreting JESSICA RAYMOND MD BMI: 35.24 kg/m^2 Physician: Date of Service: 11/30/2024 Blood Pressure: 118/59 mmHg Room Number: 579 Type of Study: TTE procedure: ECHO COMPLETE (DOPPLER / COLOR) W OR WO CONTRAST. Patient Status: Routine IP [facility] Adequate visualization History/Tech Notes: Indication: shortness [...] 1.35 m/s E/A ratio: 0.97 m/s Volume ixltzfyhk880.99 LV length: 8.51 cm ml Volume excblmsi20.96 ml LVOT diameter: 1.79 cm Normal sized [...] Valve TR velocity: 2.51 m/s TR gradient: 25.92756 mmHg Estimated RAP: 3 mmHg RVSP: 28.12 [...] including malabsorption, drug interactions, and alcoholic hepatitis. [employer] has become aware of sulfasalazine and sulfapyridine [...] (DOPPLER / COLOR) W OR WO CONTRAST [[id number]] Collected: 11/30/24 0725 Order Status: Completed Updated: 11/30/24 1046 Narrative: TRANSTHORACIC ECHOCARDIOGRAPHY REPORT Demographics Patient Name: RIN JONES : 1960 Age: 64 year(s) Corporate ID Number: [id number] Gender Female Postpartum Nurse: Giovanna Rock Height: 67 inches [facility] Referring Physician: HUEY HURTADO Weight: 225 pounds [...] 1.35 m/s E/A ratio: 0.97 m/s Volume fyycpdopt201.99 LV length: 8.51 cm ml Volume xgmkiobr56.96 ml LVOT diameter: 1.79 cm Normal sized [...] Valve TR velocity: 2.51 m/s TR gradient: 25.33527 mmHg Estimated RAP: 3 mmHg RVSP: 28.12 [...] imaging. Assessment and Plan: *Paroxysmal Atrial Fib [id number] of 3 to 4 also have some [...] Patient cannot take anticoagulation for A-fib despite QCC6RA1-QTJj because of multiple issue including GI bleeding [...] renal function - No emergent need of WELL POINT PUMPING SUPERVISOR - Monitor H/H and transfuse for Hgb less than 7.0 Follow up with NAL in 1-2 weeks with renal function panel Hema Cervantes MD 12/12/24 12:15 PM * David Coffman PA-C - 12/12/2024 11:24 AM EDT [facility] Progress Note Patient: Mary Gar Subjective Chief Complaint / Reason for Follow-Up Mary Gar is a 64 y.o. female on hospital [...] 10 g 10 g oral BID Timothy aBi MD 10 g at 12/12/24 0840 [Held [...] Hematology/oncology following. Acute hypoxemic/hypercapnic respiratory failure - Stendal to be due to pulmonary edema from [...] EDT [facility] Progress Note Patient: Mary Gar Subjective Chief Complaint / Reason for Follow-Up Mary Gar is a 64 y.o. female on hospital [...] AC Huey Hurtado MD 3 Units at 12/11/24 0648 [...] Hematology/oncology following. Acute hypoxemic/hypercapnic respiratory failure - Stendal to be due to pulmonary edema from [...] renal function - No emergent need of WELL POINT PUMPING SUPERVISOR - Monitor H/H and transfuse for Hgb less than 7.0 Follow up with NAL in 1-2 weeks with renal function panel Hema Cervantes MD 12/11/24 12:15 PM * DAWOOD Rubin/Amada - 12/10/2024 2:43 PM EDT Images from the original note were not included. Inpatient Occupational Therapy Treatment Note Patient Name: Mary Gar Date of : 1960 Date of Treatment: [...] BODY REMOVAL; Surgeon: Scott Daley MD; Location: [facility]; Service: Gastroenterology; Laterality: N/A; General Visit type: Treatment Approved by: Nurse Metzger Patient disposition upon entry: Patient verified by name, Patient verified by date of , Supinein bed Co-treated by: DATE NIGHT CAREGIVER Assisted by: expanded function dental assistant Precautions Weightbearing status: No restrictions Precautions: [...] had BM and pt returned to EOB. WELL POINT PUMPING SUPERVISOR entered room to assist. Pt was able [...] Inpatient Physical Therapy Treatment Patient Name: Mary Gar Date of : 1960 Date of Treatment: [...] I concur with their documentation of Mary Gar. Electronically signed by Alberto Love PT, DPT - 12/15/24 - 10:53 AM EST * KENNEY Zaragoza - 12/10/2024 12:34 PM EDTSummary: Case Management Discharge Planning Progress Note Discharge Plan Progress Note SW/MANGO spoke with patient's sister, Jojo Mcgill this morning via phone. Family prefers [facility] (in [place] known as [facility]), as they live 10-20minutes away from facility. JOSE MANUEL/MANGO contacted health education coordinator via text, number provided by family, phone # [phone]. farhan Astorga, fax # [phone]. CM sent updated referral. Patient will need [...] renal function - No emergent need of WELL POINT PUMPING SUPERVISOR - Monitor H/H and transfuse for Hgb [...] POC-GLUCOSE 162 (H) 70 - 110 mg/dL Fishing Rod Trimmer [id number] ABG Status: Abnormal Collection Time: 12/10/24 6:42 [...] ARTERIAL 8.5 (L) 12.0 - 18.0 g/dL [facility] COLLECTION SITE Left Radial Arterial Puncture Yes [...] POC-GLUCOSE 195 (H) 70 - 110 mg/dL Fishing Rod Trimmer [id number] Glucose, Nova Meter Status: Abnormal Collection Time: 12/10/24 6:32 PM Result Value Ref Range POC-GLUCOSE 235 (H) 70 - 110 mg/dL Fishing Rod Trimmer [id number] Glucose, Nova Meter Status: Abnormal Collection Time: 12/10/24 7:38 PM Result Value Ref Range POC-GLUCOSE 201 (H) 70 - 110 mg/dL Fishing Rod Trimmer [id number] US paracentesis Narrative: ULTRASOUND-GUIDED PARACENTESIS HISTORY: Ascites. ATTENDING PHYSICIAN: Dr. Haseeb Gil PHYSICIAN MOBILE MANAGER: Sujit Blackman PA-C FINDINGS: After informed consent [...] Pending blood gas improvement And more awake product design manager working discharge plan, likely dc 1-2 days pending improvement, plan for paracentesis today * Deysi Foss MD - 12/10/2024 8:13 AM EDT EP progress note Patient Name: Mary Gar Admission Date: 11/30/2024 Primary Care Provider: JACKIE Find-a-Doc Chief Complaint/Reason for Consult: No chief complaint on file. History of Present Illness: Mary Gar is a 64 y.o. female, admitted on: 11/30/2024 1:43 AM. presented to [facility] with swollen abdomen, abdominal discomfort and bilateral lower extremity pitting edema. Patient's BUN/creatinine elevated, and patient subsequently transferred to [facility] for hepatorenal syndrome evaluation. Admits to [...] PRN Huey Hurtado MD 500 mg at 12/10/246 albuterol 2.5 mg /3 mL (0.083 %) [...] Culture And Stain AFB Culture And Stain [facility] Non-Dairy Nutrition Specialist Cytology [facility] Non-Dairy Nutrition Specialist Cytology DIFFERENTIAL, BODY FLUID DIFFERENTIAL, BODY FLUID Body Fluid/CSF - Path Review () Body Fluid/CSF - Path Review () [facility] BONE MARROW SMEAR, ASPIRATION, AND STAIN [facility] BONE MARROW SMEAR, ASPIRATION, AND STAIN CANCELED: [...] BODY REMOVAL; Surgeon: Scott Daley MD; Location: [facility]; Service: Gastroenterology; Laterality: N/A; Allergies: No [...] Normal range of motion. Integumentary: Warm, Dry, [place]. Neurologic: No obvious focal deficit Psychiatric: Cooperative, Appropriate mood & affect. Labs, Imaging, and Other Studies: Echo Results (last 7 days) Procedure Component Value Units Date/Time ECHO COMPLETE (DOPPLER / COLOR) W OR WO CONTRAST [[id number]] Collected: 11/30/24724 Order Status: Completed Updated: 11/30/24 104 Narrative: TRANSTHORACIC ECHOCARDIOGRAPHY REPORT Demographics Patient Name: RIN JONES : 1960 Age: 64 year(s) Corporate ID Number: [id number] Gender Female Postpartum Nurse: Giovanna Rock Height: 67 inches [facility] Referring Physician: HUEY HURTADO Weight: 225 pounds [...] .99 LV length: 8.51 cm ml Volume dfadiirn88.96 ml LVOT diameter: 1.79 cm Normal sized [...] Valve TR velocity: 2.51 m/s TR gradient: 25.10086 mmHg Estimated RAP: 3 mmHg RVSP: 28.12 [...] (DOPPLER / COLOR) W OR WO CONTRAST [[id number]] Collected: 11/30/24 0725 Order Status: Completed Updated: 11/30/24 1046 Narrative: TRANSTHORACIC ECHOCARDIOGRAPHY REPORT Demographics Patient Name: RIN JONES : 1960 Age: 64 year(s) Corporate ID Number: [id number] Gender Female Postpartum Nurse: Giovanna Rock Height: 67 inches [facility] Referring Physician: HUEY HURTADO Weight: 225 pounds [...] 1.35 m/s E/A ratio: 0.97 m/s Volume rkpzygcpv839.99 LV length: 8.51 cm ml Volume szqiekhi33.96 ml LVOT diameter: 1.79 cm Normal sized [...] Valve TR velocity: 2.51 m/s TR gradient: 25.83772 mmHg Estimated RAP: 3 mmHg RVSP: 28.12 [...] imaging. Assessment and Plan: *Paroxysmal Atrial Fib [id number] of 3 to 4 also have some [...] Patient cannot take anticoagulation for A-fib despite [id number] because of multiple issue including GI bleeding [...] history as below. She initially presented to [facility] with swollen abdomen, abdominal discomfort, and bilateral lower extremity pain. Her creatinine was elevated and as a result, she was transferred to [facility] for he patorenal syndrome. Upon arrival [...] BODY REMOVAL; Surgeon: Scott Daley MD; Location: [facility]; Service: Gastroenterology; Laterality: N/A; Allergies: No [...] ARTERIAL 8.7 (L) 12.0 - 18.0 g/dL [facility] COLLECTION SITE Left Radial Arterial Puncture Yes Blood Gas O2 Delivery Device Cannula Oxygen Flow Rate 4 Blood Gas PT Temperature C 37.0 Sen's Test Acceptable Critical Values Notification Critical Blood gas called to DAYANARA MILES . [place] [id number] and confirmed on12/09/2024 06:51 ABG Number of Draw Attempts 1 FIO2 Blood Gas Temperature Corrected Results No No Glucose, Nova Meter Status: Abnormal Collection Time: 12/09/24 11:17 AM Result Value Ref Range POC-GLUCOSE 173 (H) 70 - 110 mg/dL Fishing Rod Trimmer [id number] Glucose, Nova Meter Status: Abnormal Collection Time: 12/09/24 4:23 PM Result Value Ref Range POC-GLUCOSE 173 (H) 70 - 110 mg/dL Fishing Rod Trimmer [id number] Glucose, Nova Meter Status: Abnormal Collection Time: 12/09/24 7:30 PM Result Value Ref Range POC-GLUCOSE 158 (H) 70 - 110 mg/dL Fishing Rod Trimmer [id number] Glucose, Nova Meter Status: Abnormal Collection Time: 12/10/24 5:52 AM Result Value Ref Range POC-GLUCOSE 162 (H) 70 - 110 mg/dL Fishing Rod Trimmer [id number] Radiology Radiology Results (last day) Procedure Component Value Units Date/Time XR chest AP portable [[id number]] Collected: 12/09/24 0844 Order Status: Completed Updated: [...] Fungus Culture W/ROSA MARIA Or Nimisha Ink [[id number]] Collected: 11/30/24 160 Order Status: Completed Specimen: Peritoneal Fluid from Body Fluid Updated: 12/07/24 1700 Result No fungus isolated at 1 week. ROSA MARIA Prep No fungal elements seen Narrative: Specimen Description: peritoneal fluid AFB Culture And Stain [[id number]] Collected: 11/30/24 160 Order Status: Completed Specimen: Peritoneal Fluid from Body Fluid Updated: 12/07/24 1700 Result No Acid Fast Bacilli isolated at 1 week. AFB Smear No acid fast bacilli seen Narrative: Specimen Description: peritoneal fluid Anaerobic Culture [[id number]] Collected: 11/30/24 1603 Order Status: Completed Specimen: Peritoneal Fluid from Body Fluid Updated: 12/05/24 0634 Result No Anaerobic growth Narrative: Specimen Description: peritoneal fluid Blood Culture [[id number]] Collected: 11/30/24 0340 Order Status: Completed Specimen: Blood from Arm, Left Updated: 12/05/24 0501 Result No growth in 5 days Blood Culture [[id number]] Collected: 11/30/24 0342 Order Status: Completed Specimen: Blood from Arm, Right Updated: 12/05/24 0501 Result No growth in 5 days Body Fluid Culture + Gram Stain [[id number]] Collected: 11/30/24 1603 Order Status: Completed Specimen: Peritoneal Fluid from Body Fluid Updated: 12/03/24 0907 Result No growth Gram Stain Result No organisms seen No cells seen Narrative: Specimen Description: peritoneal fluid Body Fluid/CSF - Path Review () [[id number]] Collected: 11/30/24 160 Order Status: Completed Specimen: [...] to continue with albumin/diuretics no indication for WELL POINT PUMPING SUPERVISOR No significant pleural effusion for thoracentesis If needed repeat chest x-ray. Otherwise continue diuresis Pulmonary continue to follow Case discussed during round. I have personally evaluated the patient and performed a dxam-gn-bsad diagnostic evaluation on this patient; I have reviewed history, performed physical examination, reviewed laboratory studies. , andreviewed images independent of radiologist. I have actively directed the medical care, formulated assessemnt and plan of care. Patient requires a high complexity of decision making for assessment. 34 minutes critical care time was spent. Voice sales special agent technology (Neul) is used for dictation of this note and sound-alike words might be erroneously placed despite reviewing the note for accuracy.Errors in dictation may reflect use of voice recognition software and not all errors in sales special agent may have been detectedprior to signing * Tori Kamara RN - 12/09/2024 4:00 PM EDT MD Mcfadden approved patient to go to US Paracentesis unmonitored. * Alvina Barragan, PT - 12/09/2024 2:22 PM EDT Images from the original note were not included. Inpatient Physical Therapy Attempt to Treat Patient Name: Mary Gar Birthday: 1960 Date of Attempt: 12/09/2024 RN [...] POC-GLUCOSE 159 (H) 70 - 110 mg/dL Fishing Rod Trimmer [id number] Glucose, Nova Meter Status: Abnormal Collection Time: 12/08/24 8:08 PM Result Value Ref Range POC-GLUCOSE 172 (H) 70 - 110 mg/dL Fishing Rod Trimmer [id number] Basic Metabolic Panel Status: Abnormal Collection Time: [...] Osmolality Calc 320.0 mOsm/kg [facility] Status: Abnormal Collection Time: 12/09/24 3:38 AM [...] POC-GLUCOSE 148 (H) 70 - 110 mg/dL Fishing Rod Trimmer [id number] ABG Status: Abnormal Collection Time: 12/09/24 6:37 [...] ARTERIAL 8.7 (L) 12.0 - 18.0 g/dL [facility] COLLECTION SITE Left Radial Arterial Puncture Yes Blood Gas O2 Delivery Device Cannula Oxygen Flow Rate 4 Blood Gas PT Temperature C 37.0 Sen's Test Acceptable Critical Values Notification Critical Blood gas called to DAYANARA MILES . [place] [id number] and confirmed on12/09/2024 06:51 ABG Number of Draw Attempts 1 FIO2 Blood Gas Temperature Corrected Results No No Glucose, Nova Meter Status: Abnormal Collection Time: 12/09/24 11:17 AM Result Value Ref Range POC-GLUCOSE 173 (H) 70 - 110 mg/dL Fishing Rod Trimmer [id number] XR chest AP portable Narrative: PORTABLE CHEST. [...] Pending blood gas improvement And more awake product design manager working discharge plan * Tori Kamara [...] Ext: +++ Pedal edema , no cyanosis STERILIZATION TECHNICIAN: Alert, No focal deficit noted grossly Psy: Cooperative Labs: Results for orders placed or performed during the hospital encounter of 11/30/24 (from the past 24 hours) Glucose, Nova Meter Status: Abnormal Collection Time: 12/08/24 10:57 AM Result Value Ref Range POC-GLUCOSE 191 (H) 70 - 110 mg/dL Fishing Rod Trimmer [id number] Glucose, Nova Meter Status: Abnormal Collection Time: 12/08/24 3:34 PM Result Value Ref Range POC-GLUCOSE 159 (H) 70 - 110 mg/dL Fishing Rod Trimmer [id number] Glucose, Nova Meter Status: Abnormal Collection Time: 12/08/24 8:08 PM Result Value Ref Range POC-GLUCOSE 172 (H) 70 - 110 mg/dL Fishing Rod Trimmer [id number] Basic Metabolic Panel Status: Abnormal Collection Time: [...] Osmolality Calc 320.0 mOsm/kg [facility] - [facility] Status: Abnormal Collection Time: 12/09/24 3:38 AM [...] POC-GLUCOSE 148 (H) 70 - 110 mg/dL Fishing Rod Trimmer [id number] ABG Status: Abnormal Collection Time: 12/09/24 6:37 [...] ARTERIAL 8.7 (L) 12.0 - 18.0 g/dL [facility] COLLECTION SITE Left Radial Arterial Puncture Yes Blood Gas O2 Delivery Device Cannula Oxygen Flow Rate 4 Blood Gas PT Temperature C 37.0 Sen's Test Acceptable Critical Values Notification Critical Blood gas called to DAYANARA MILES . [place] [id number] and confirmed on12/09/2024 06:51 ABG Number of [...] Intake/Output Summary (Last 24 hours) at 12/09/2024 0926 Last data filed at 12/09/2024 0300 Gross [...] renal function - No emergent need of WE[employer] PU[employer]ING SUPERVISOR - Monitor H/H and transfuse for Hgb less than 7.0 Discussed with patient Follow up with [facility] in 1-2 weeks with renal function panel * KENNEY Zaragoza - 12/09/2024 8:04 AM EDTSummary: Referral Pending Discharge Plan Progress Note Family/Sister prefers [facility]. SW/CM sent referral this AM. Currently pending. [facility] [address] KENNEY Zaragoza * Blanka Malagon MD - 12/09/2024 6:30 AM EDT Images from the original note were not included. PULMONARY AND CRITICAL CARE Consult Note Date of Service: 12/09/2024 HPI: This is a 64 y.o. year old female with past medical history as below. She initially presented to [facility] with swollen abdomen, abdominal discomfort, and bilateral lower extremity pain. Her creatinine was elevated and as a result, she was transferred to [facility] for he patorenal syndrome. Upon arrival [...] BODY REMOVAL; Surgeon: Scott Daley MD; Location: [facility]; Service: Gastroenterology; Laterality: N/A; Allergies: No [...] ARTERIAL 8.8 (L) 12.0 - 18.0 g/dL [facility] COLLECTION SITE Right Brachial Arterial Puncture Yes Blood Gas O2 Delivery Device Cannula Oxygen Flow Rate 4 Blood Gas PT Temperature C 37.0 Sen's Test Not Applicable Critical Values Notification Critical Blood gas called to KNOWN CONDITION . Results acknowledged/read back to [id number] and confirmed on 12/08/2024 07:30 ABG Number of Draw Attempts 1 FIO2 Blood Gas Temperature Corrected Results No No Glucose, Nova Meter Status: Abnormal Collection Time: 12/08/24 10:57 AM Result Value Ref Range POC-GLUCOSE 191 (H) 70 - 110 mg/dL Fishing Rod Trimmer [id number] Glucose, Nova Meter Status: Abnormal Collection Time: 12/08/24 3:34 PM Result Value Ref Range POC-GLUCOSE 159 (H) 70 - 110 mg/dL Fishing Rod Trimmer [id number] Glucose, Nova Meter Status: Abnormal Collection Time: 12/08/24 8:08 PM Result Value Ref Range POC-GLUCOSE 172 (H) 70 - 110 mg/dL Fishing Rod Trimmer [id number] Basic Metabolic Panel Status: Abnormal Collection Time: [...] POC-GLUCOSE 148 (H) 70 - 110 mg/dL Fishing Rod Trimmer [id number] Radiology Radiology Results (last day) No results found for the last 24 hours. Microbiology: Microbiology Results (last 7 days) Procedure Component Value Units Date/Time Fungus Culture W/ROSA MARIA Or Nimisha Ink [[id number]] Collected: 11/30/241602 Order Status: Completed Specimen: Peritoneal Fluid from Body Fluid Updated: 12/07/24 170 Result No fungus isolated at 1 week. ROSA MARIA Prep No fungal elements seen Narrative: Specimen Description: peritoneal fluid AFB Culture And Stain [[id number]] Collected: 11/30/24 160 Order Status: Completed Specimen: Peritoneal Fluid from Body Fluid Updated: 12/07/24 1700 Result No Acid Fast Bacilli isolated at 1 week. AFB Smear No acid fast bacilli seen Narrative: Specimen Description: peritoneal fluid Anaerobic Culture [[id number]] Collected: 11/30/24 160 Order Status: Completed Specimen: Peritoneal Fluid from Body Fluid Updated: 12/05/24 0634 Result No Anaerobic growth Narrative: Specimen Description: peritoneal fluid Blood Culture [[id number]] Collected: 11/30/24 0340 Order Status: Completed Specimen: Blood from Arm, Left Updated: 12/05/24 0501 Result No growth in 5 days Blood Culture [[id number]] Collected: 11/30/24 0342 Order Status: Completed Specimen: Blood from Arm, Right Updated: 12/05/24 0501 Result No growth in 5 days Body Fluid Culture + Gram Stain [[id number]] Collected: 11/30/24 1603 Order Status: Completed Specimen: Peritoneal Fluid from Body Fluid Updated: 12/03/24 0907 Result No growth Gram Stain Result No organisms seen No cells seen Narrative: Specimen Description: peritoneal fluid Body Fluid/CSF - Path Review () [[id number]] Collected: 11/30/24 1603 Order Status: Completed Specimen: [...] to continue with albumin/diuretics no indication for WE[employer]INT PU[employer]ING SUPERVISOR No significant pleural effusion for thoracentesis If needed repeat chest x-ray. Otherwise continue diuresis Pulmonary twill follow . If ABG not improving ,or worsening mental status recommended ICU Case discussed during round. I have personally evaluated the patient and performed a pzkx-nb-ekyu diagnostic evaluation on this patient; I have reviewed history, performed physical examination, reviewed laboratory studies. , andreviewed images independent of radiologist. I have actively directed the medical care, formulated assessemnt and plan of care. Patient requires a high complexity of decision making for assessment. 34 minutes critical care time was spent. Voice sales special agent technology (Neul) is used for dictation of this note and sound-alike words might be erroneously placed despite reviewing the note for accuracy.Errors in dictation may reflect use of voice recognition software and not all errors in sales special agent may have been detectedprior to signing * [...] needed. Blas was removed this shift. * KNENEY Zaragoza - 12/08/2024 1:33 PM EDTSummary: Pending Medical Readiness for SNF - Bed Offer with [facility] Discharge Plan Progress Note JOSE MANUEL/MANGO updated Rama T with [facility] regarding patient's ICU transfer cancellation.MANGO to follow up with Rama on 12/09 with updated PT/OT notes, MD progress notes of patients care, BiPaP/RT plan. [facility] is still offering bed for patient. [facility]ert will be needed, [facility]. SW/CM has attempted to call patient's sister, Jojo Dominguez x3 times, at # listed, , however, CM is experiencing phone issues and unable to call out. CM has informed bedside RN and PRACTICE BUSINESS ASST via i2we Chat. KENNEY Zaragoza * KENNEY Zaragoza - 12/08/2024 1:29 PM EDTSummary: CM Assessment Care Coordination Initial Assessment Patient's readmit score is low at 12%. CM plan was to DC home/independent at baseline or with family/sister assistance. Sister, Jojo, stated she cannot care for patient if patient was to come homewith her, and patient needed rehab. CM sent referrals, patient had bed offers, [facility] offered bed first and [...] (P) Independent Current Lines, Tubes: (P) 3L/min [place] Special/Community Services: (P) Transport, discharge, Home, assistance Transition Needs Expected Discharge Date: Off Track GMLOS, TBD - 12/10-12/12 Home or Post Acute Services Needed: (P) Post acute facilities (Rehab/SNF/etc) Does the patient have the ability to fill and receive their discharge medications: (P) Yes Discharge plan discussed: (P) The discharge plan was discussed with patient labor relations representative. Discharge Barriers: (P) Test(s) Pending, Activity Type of Assistive Devices Needed for Discharge: (P) None Patient Discharge Goal: (P) Inpatient Rehab Facility, Snf Facility Mandated Reporting: (P) Not applicable PT/OT/FINANCE BUSINESS MANAGER Recommendations PT Recommendations: Pending Hospital Stay OT Recommendations: Pending Hospital Stay FINANCE BUSINESS MANAGER Recommendations: NA 12/08/24 1327 Home Environment Type [...] Assistive Devices Walker;Commode Current Lines, Tubes 3L/min [place] Special/Community Services Transport, discharge;Home, assistance Transition Needs Home or Post Acute Services Post acute facilities (Rehab/SNF/etc) Type of Post Acute Facility Services penitentiary;Rehab Does the patient have the ability to fill and receive their discharge medications? Yes Discharge Plan Discussed The discharge plan was discussed with patient labor relations representative. Discharge Plan Outcome Patient/family labor relations representative agrees with the discharge plan Discharge Barriers Test(s) Pending;Activity Type of Assistive Devices Needed for Discharge None Patient Discharge Goal Inpatient Rehab Facility;Snf Facility Mandated Reporting Not applicable Yjothi Erlinda, LIBRARY CLERK * Deysi Foss MD - 12/08/2024 11:29 AM EDT EP progress note Patient Name: Mary Gar Admission Date: 11/30/2024 Primary Care Provider: [facility] Find-a-Doc Chief Complaint/Reason for Consult: No chief complaint on file. History of Present Illness: Mary Gar is a 64 y.o. female, admitted on: 11/30/2024 1:43 AM. presented to [facility] with swollen abdomen, abdominal discomfort and bilateral lower extremity pitting edema. Patient's BUN/creatinine elevated, and patient subsequently transferred to [facility] for hepatorenal syndrome evaluation. Admits to [...] Daily Deysi Foss MD 200 mg at 12/08/24 09 ammonium lactate (LAC-HYDRIN) lotion 12% topical [...] 12.5 mg oral Daily Hill Boo MD [facility] meds No current facility-administered medications on file [...] Culture And Stain AFB Culture And Stain [facility] Non-Dairy Nutrition Specialist Cytology [facility] Non-Dairy Nutrition Specialist Cytology DIFFERENTIAL, BODY FLUID DIFFERENTIAL, BODY FLUID Body Fluid/CSF - Path Review () Body Fluid/CSF - Path Review () [facility] BONE MARROW SMEAR, ASPIRATION, AND STAIN [facility] BONE MARROW SMEAR, ASPIRATION, AND STAIN CANCELED: [...] BODY REMOVAL; Surgeon: Scott Daley MD; Location: [facility]; Service: Gastroenterology; Laterality: N/A; Allergies: No [...] Normal range of motion. Integumentary: Warm, Dry, [place]. Neurologic: No obvious focal deficit Psychiatric: Cooperative, Appropriate mood & affect. Labs, Imaging, and Other Studies: Echo Results (last 7 days) Procedure Component Value Units Date/Time ECHO COMPLETE (DOPPLER / COLOR) W OR WO CONTRAST [[id number]] Collected: 11/30/24724 Order Status: Completed Updated: 11/30/24 104 Narrative: TRANSTHORACIC ECHOCARDIOGRAPHY REPORT Demographics Patient Name: RIN JONES : 1960 Age: 64 year(s) Corporate ID Number: [id number] Gender Female Postpartum Nurse: Giovanna Rock Height: 67 inches [facility] Referring Physician: HUEY HURTADO Weight: 225 pounds Interpreting JESSICA RAYMOND MD BMI: 35.24 kg/m^2 Physician: Date of Service: 11/30/2024 Blood Pressure: 118/59 mmHg Room Number: 579 Type of Study: TTE procedure: ECHO COMPLETE (DOPPLER / COLOR) W OR WO CONTRAST. Patient Status: Routine IP [facility] Adequate [facility] History/Tech Notes: Indication: [...] 1.35 m/s E/A ratio: 0.97 m/s Volume ongesihza133.99 LV length: 8.51 cm ml Volume hsshpmry23.96 ml LVOT diameter: 1.79 cm Normal sized [...] Valve TR velocity: 2.51 m/s TR gradient: 25.09700 mmHg Estimated RAP: 3 mmHg RVSP: 28.12 [...] (DOPPLER / COLOR) W OR WO CONTRAST [[id number]] Collected: 11/30/24724 Order Status: Completed Updated: 11/30/24 1046 Narrative: TRANSTHORACIC ECHOCARDIOGRAPHY REPORT Demographics Patient Name: RIN JONES : 1960 Age: 64 year(s) Corporate ID Number: [id number] Gender Female Postpartum Nurse: Giovanna Rock Height: 67 inches [facility] Referring Physician: HUEY HURTADO Weight: 225 pounds Interpreting JESSICA RAYMOND MD BMI: 35.24 kg/m^2 Physician: Date of Service: 11/30/2024 Blood Pressure: 118/59 mmHg Room Number: 579 Type of Study: TTE procedure: ECHO COMPLETE (DOPPLER / COLOR) W OR WO CONTRAST. Patient Status: Routine IP [facility] Adequate visualization History/Tech Notes: Indication: shortness [...] 1.35 m/s E/A ratio: 0.97 m/s Volume fdipqjdda588.99 LV length: 8.51 cm ml Volume .96 [...] Valve TR velocity: 2.51 m/s TR gradient: 25.26430 mmHg Estimated RAP: 3 mmHg RVSP: 28.12 [...] imaging. Assessment and Plan: *Paroxysmal Atrial Fib [id number] of 3 to 4 also have some [...] Patient cannot take anticoagulation for A-fib despite [id number] because of multiple issue including GI bleeding [...] Occupational Therapy Treatment Note Patient Name: Mary Gar Date of : 1960 Date of Treatment: [...] BODY REMOVAL; Surgeon: Scott Daley MD; Location: [facility]; Service: Gastroenterology; Laterality: N/A; General Visit [...] 12.0 - 18.0 g/dL PaO2/FIO2 calculated 203.0 [facility] COLLECTION SITE Right Radial Arterial Puncture Yes Blood Gas PT Temperature C 37.0 Sen's Test Acceptable Critical Values Notification Critical Blood gas called to TRAY LORENZ RN . [place] [id number] and confirmed on 12/07/2024 10:51 ABG Number of Draw Attempts 1 FIO2 21.0 Blood Gas Temperature Corrected Results No No Glucose, Nova Meter Status: Abnormal Collection Time: 12/07/24 10:54 AM Result Value Ref Range POC-GLUCOSE 146 (H) 70 - 110 mg/dL Fishing Rod Trimmer [id number] Blood gas, arterial Status: Abnormal Collection Time: [...] ARTERIAL 8.9 (L) 12.0 - 18.0 g/dL [facility] COLLECTION SITE Right Radial Arterial Puncture Yes Blood Gas O2 Delivery Device Cannula Oxygen Flow Rate 2 Blood Gas PT Temperature C 37.0 Sen's Test Unacceptable Vent Mode Other Critical Values Notification Critical Blood gas called to DR MALAGON . [place] [id number] and confirmed on 12/07/2024 14:14 ABG Number of Draw Attempts 1 Performed by: CD FIO2 Blood Gas Temperature Corrected Results No No Glucose, Nova Meter Status: Abnormal Collection Time: 12/07/24 3:39 PM Result Value Ref Range POC-GLUCOSE 159 (H) 70 - 110 mg/dL Fishing Rod Trimmer [id number] ABG Status: Abnormal Collection Time: 12/07/24 4:21 [...] 12.0 - 18.0 g/dL PaO2/FIO2 calculated 359.0 [facility] COLLECTION SITE Right Brachial Arterial Puncture Yes Blood Gas O2 Delivery Device NIV Blood Gas PT Temperature C 37.0 Sen's Test Not Applicable Critical Values Notification Critical Blood gas called to SEB LORENZ RN . Results acknowledged/read back to [id number] and confirmed on 12/07/2024 16:42 ABG Number of Draw Attempts 2 Set Rate 16.0 IPAP 10 EPAP 6 FIO2 50.0 Blood Gas Temperature Corrected Results No No Glucose, Nova Meter Status: Abnormal Collection Time: 12/07/24 7:54 PM Result Value Ref Range POC-GLUCOSE 164 (H) 70 - 110 mg/dL Fishing Rod Trimmer [id number] Basic Metabolic Panel Status: Abnormal Collection Time: [...] Osmolality Calc 322.3 mOsm/kg CBC - Hemogram (-[facility]) Status: Abnormal Collection Time: 12/08/24 4:10 [...] POC-GLUCOSE 136 (H) 70 - 110 mg/dL Fishing Rod Trimmer [id number] Blood gas, arterial Status: Abnormal Collection Time: [...] ARTERIAL 8.8 (L) 12.0 - 18.0 g/dL [facility] COLLECTION SITE Right Brachial Arterial Puncture Yes Blood Gas O2 Delivery Device Cannula Oxygen Flow Rate 4 Blood Gas PT Temperature C 37.0 Sen's Test Not Applicable Critical Values Notification Critical Blood gas called to KNOWN CONDITION . Results acknowledged/read back to [id number] and confirmed on 12/08/2024 07:30 ABG Number [...] Pending blood gas improvement And more awake product design manager working discharge plan * Hill Boo [...] Ext: +++ Pedal edema , no cyanosis STERILIZATION TECHNICIAN: Alert, No focal deficit noted grossly Psy: Cooperative Labs: Results for orders placed or performed during the hospital encounter of 11/30/24 (from the past 24 hours) ECG 12 lead Status: None Collection Time: 12/07/24 10:29 AM Result Value Ref Range VENTRICULAR RATE EKG/MIN 91 BPM ATRIAL RATE (MCT) 91 BPM NM Interval 142 ms QRS-INTERVAL (MSEC) 88 ms QT Interval 376 ms QTC Interval 462 ms P Aroda 39 degrees R AXIS (MCT) -3 degrees T Wave Aroda 4 degrees [place] Diagnosis Normal sinus rhythm Nonspecific T wave [...] 12.0 - 18.0 g/dL PaO2/FIO2 calculated 203.0 [facility] COLLECTION SITE Right Radial Arterial Puncture Yes Blood Gas PT Temperature C 37.0 Sen's Test Acceptable Critical Values Notification Critical Blood gas called to TRAY LORENZ RN . Results [place] [phone] and confirmed on 12/07/2024 10:51 ABG Number of Draw Attempts 1 FIO2 21.0 Blood Gas Temperature Corrected Results No No Glucose, Nova Meter Status: Abnormal Collection Time: 12/07/24 10:54 AM Result Value Ref Range POC-GLUCOSE 146 (H) 70 - 110 mg/dL Fishing Rod Trimmer [id number] Blood gas, arterial Status: Abnormal Collection Time: [...] ARTERIAL 8.9 (L) 12.0 - 18.0 g/dL [facility] COLLECTION SITE Right Radial Arterial Puncture Yes Blood Gas O2 Delivery Device Cannula Oxygen Flow Rate 2 Blood Gas PT Temperature C 37.0 Sen's Test Unacceptable Vent Mode Other Critical Values Notification Critical Blood gas called to DR MALAGON . [place] [id number] and confirmed on 12/07/2024 14:14 ABG Number of Draw Attempts 1 Performed by: CD FIO2 Blood Gas Temperature Corrected Results No No Glucose, Nova Meter Status: Abnormal Collection Time: 12/07/24 3:39 PM Result Value Ref Range POC-GLUCOSE 159 (H) 70 - 110 mg/dL Fishing [employer] Trimmer [id number] ABG Status: Abnormal Collection Time: 12/07/24 4:21 [...] 12.0 - 18.0 g/dL PaO2/FIO2 calculated 359.0 [facility] COLLECTION SITE Right Brachial Arterial Puncture Yes Blood Gas O2 Delivery Device NIV Blood Gas PT Temperature C 37.0 Sen's Test Not Applicable Critical Values Notification Critical Blood gas called to SEB LORENZ RN . Results acknowledged/read back to [id number] and confirmed on 12/07/2024 16:42 ABG Number of Draw Attempts 2 Set Rate 16.0 IPAP 10 EPAP 6 FIO2 50.0 Blood Gas Temperature Corrected Results No No Glucose, Nova Meter Status: Abnormal Collection Time: 12/07/24 7:54 PM Result Value Ref Range POC-GLUCOSE 164 (H) 70 - 110 mg/dL Fishing [employer] Trimmer [id number] Basic Metabolic Panel Status: Abnormal Collection Time: [...] POC-GLUCOSE 136 (H) 70 - 110 mg/dL Fishing [employer] Trimmer [id number] Blood gas, arterial Status: Abnormal Collection Time: [...] ARTERIAL 8.8 (L) 12.0 - 18.0 g/dL [facility] COLLECTION SITE Right Brachial Arterial Puncture Yes Blood Gas O2 Delivery Device Cannula Oxygen Flow Rate 4 Blood Gas PT Temperature C 37.0 Sen's Test Not Applicable Critical Values Notification Critical Blood gas called to KNOWN CONDITION . Results acknowledged/read back to [phone] and confirmed on 12/08/2024 07:30 ABG Number [...] renal function - No emergent need of WELL POINT PUMPING SUPERVISOR - Monitor H/H and transfuse for Hgb [...] history as below. She initially presented to [facility] with swollen abdomen, abdominal discomfort, and bilateral lower extremity pain. Her creatinine was elevated and as a result, she was transferred to [facility] for he patorenal syndrome. Upon arrival [...] BODY REMOVAL; Surgeon: Scott Daley MD; Location: [facility]; Service: Gastroenterology; Laterality: N/A; Allergies: No [...] 91 BPM ATRIAL RATE (MCT) 91 BPM NM Interval 142 ms QRS-INTERVAL (MSEC) 88 ms QT Interval 376 ms QTC Interval 462 ms P Aroda 39 degrees R AXIS (MCT) -3 degrees T Wave Aroda 4 degrees [place] Diagnosis Normal sinus rhythm Nonspecific T wave [...] 12.0 - 18.0 g/dL PaO2/FIO2 calculated 203.0 [facility] COLLECTION SITE Right Radial Arterial Puncture Yes Blood Gas PT Temperature C 37.0 Sen's Test Acceptable Critical Values Notification Critical Blood gas called to TRAY LORENZ RN . [place] [id number] and confirmed on 12/07/2024 10:51 ABG Number of Draw Attempts 1 FIO2 21.0 Blood Gas Temperature Corrected Results No No Glucose, Nova Meter Status: Abnormal Collection Time: 12/07/24 10:54 AM Result Value Ref Range POC-GLUCOSE 146 (H) 70 - 110 mg/dL Fishing [employer] Trimmer [id number] Blood gas, arterial Status: Abnormal Collection Time: [...] ARTERIAL 8.9 (L) 12.0 - 18.0 g/dL [facility] COLLECTION SITE Right Radial Arterial Puncture Yes Blood Gas O2 Delivery Device Cannula Oxygen Flow Rate 2 Blood Gas PT Temperature C 37.0 Sen's Test Unacceptable Vent Mode Other Critical Values Notification Critical Blood gas called to DR MALAGON . [place] [id number] and confirmed on 12/07/2024 14:14 ABG Number of Draw Attempts 1 Performed by: WIL FIO2 Blood Gas Temperature Corrected Results No No Glucose, Nova Meter Status: Abnormal Collection Time: 12/07/24 3:39 PM Result Value Ref Range POC-GLUCOSE 159 (H) 70 - 110 mg/dL Fishing [employer] Trimmer [id number] ABG Status: Abnormal Collection Time: 12/07/24 4:21 [...] 12.0 - 18.0 g/dL PaO2/FIO2 calculated 359.0 [facility] COLLECTION SITE Right Brachial Arterial Puncture Yes Blood Gas O2 Delivery Device NIV Blood Gas PT Temperature C 37.0 Sen's Test Not Applicable Critical Values Notification Critical Blood gas called to SEB LORENZ RN . Results acknowledged/read back to [id number] and confirmed on 12/07/2024 16:42 ABG Number of Draw Attempts 2 Set Rate 16.0 IPAP 10 EPAP 6 FIO2 50.0 Blood Gas Temperature Corrected Results No No Glucose, Nova Meter Status: Abnormal Collection Time: 12/07/24 7:54 PM Result Value Ref Range POC-GLUCOSE 164 (H) 70 - 110 mg/dL Fishing Rod Trimmer [id number] Basic Metabolic Panel Status: Abnormal Collection Time: [...] Osmolality Calc 322.3 mOsm/kg [facility] Status: Abnormal Collection Time: 12/08/24 4:10 AM [...] POC-GLUCOSE 136 (H) 70 - 110 mg/dL Fishing Rod Trimmer [id number] Blood gas, arterial Status: Abnormal Collection Time: [...] ARTERIAL 8.8 (L) 12.0 - 18.0 g/dL [facility] COLLECTION SITE Right Brachial Arterial Puncture Yes Blood Gas O2 Delivery Device Cannula Oxygen Flow Rate 4 Blood Gas PT Temperature C 37.0 Sen's Test Not Applicable Critical Values Notification Critical Blood gas called to KNOWN CONDITION . Results acknowledged/read back to [phone] and confirmed on 12/08/2024 07:30 ABG Number of Draw Attempts 1 FIO2 Blood Gas Temperature Corrected Results No No Radiology Radiology Results (last day) Procedure Component Value Units Date/Time XR chest AP portable [[id number]] Collected: 12/07/24 1550 Order Status: Completed Updated: [...] Fungus Culture W/ROSA MARIA Or Nimisha Ink [[id number]] Collected: 11/30/24 1603 Order Status: Completed Specimen: Peritoneal Fluid from Body Fluid Updated: 12/07/24 1700 Result No fungus isolated at 1 week. ROSA MARIA Prep No fungal elements seen Narrative: Specimen Description: peritoneal fluid AFB Culture And Stain [[id number]] Collected: 11/30/24 160 Order Status: Completed Specimen: Peritoneal Fluid from Body Fluid Updated: 12/07/24 1700 Result No Acid Fast Bacilli isolated at 1 week. AFB Smear No acid fast bacilli seen Narrative: Specimen Description: peritoneal fluid Anaerobic Culture [[id number]] Collected: 11/30/24 1603 Order Status: Completed Specimen: Peritoneal Fluid from Body Fluid Updated: 12/05/24 0634 Result No Anaerobic growth Narrative: Specimen Description: peritoneal fluid Blood Culture [[id number]] Collected: 11/30/24 0340 Order Status: Completed Specimen: Blood from Arm, Left Updated: 12/05/24 0501 Result No growth in 5 days Blood Culture [[id number]] Collected: 11/30/24 0342 Order Status: Completed Specimen: Blood from Arm, Right Updated: 12/05/24 0501 Result No growth in 5 days Body Fluid Culture + Gram Stain [[id number]] Collected: 11/30/24 1603 Order Status: Completed Specimen: Peritoneal Fluid from Body Fluid Updated: 12/03/24 0907 Result No growth Gram Stain Result No organisms seen No cells seen Narrative: Specimen Description: peritoneal fluid Body Fluid/CSF - Path Review () [[id number]] Collected: 11/30/24 1603 Order Status: Completed Specimen: [...] to continue with albumin/diuretics no indication for WELL POINT PUMPING SUPERVISOR No significant pleural effusion for thoracentesis If needed repeat chest x-ray. Otherwise continue diuresis Pulmonary twill follow . If ABG not improving ,or worsening mental status recommended ICU Case discussed during round. I have personally evaluated the patient and performed a [id number] diagnostic evaluation on this patient; I have reviewed history, performed physical examination, reviewed laboratory studies. , andreviewed images independent of radiologist. I have actively directed the medical care, formulated assessemnt and plan of care. Patient requires a high complexity of decision making for assessment. 34 minutes critical care time was spent. Voice sales special agent technology (Neul) is used for dictation of this note and sound-alike words might be erroneously placed despite reviewing the note for accuracy.Errors in dictation may reflect use of voice recognition software and not all errors in sales special agent may have been detectedprior to signing * Jalen Woodward OTR/L - 12/07/2024 2:26 PM EDT Images from the original note were not included. Inpatient Occupational Therapy Attempt to Treat Patient Name: Mary Gar Birthday: 1960 Date of Attempt: 12/07/2024 Consulted with nurseTheodora, who reported declining respiratory status and requested therapy be held until ABGs returned. OT will follow up as schedule allows. Electronically signed by Jalen Woodward OTR/Amada - 12/07/2024 - 3:38 PM EDT * Alvina Barragan, PT - 12/07/2024 1:17 PM EDT Images from the original note were not included. Inpatient Physical Therapy Attempt to Treat Patient Name: Mary Gar Birthday: 1960 Date of Attempt: 12/07/2024 Pt being transferred to ICU due to lethargy and increased respiratory distress. Will hold PT today,but continue to follow. Electronically signed by Alvina Barragan, PT - 12/07/2024 - 1:17 PM EDT * Deysi Foss MD - 12/07/2024 12:42 PM EDT EP progress note Patient Name: Mary Gar Admission Date: 11/30/2024 Primary Care Provider: [facility] Find-a-Doc Chief Complaint/Reason for Consult: No chief complaint on file. History of Present Illness: Mary Gar is a 64 y.o. female, admitted on: 11/30/2024 1:43 AM. presented to [facility] with swollen abdomen, abdominal discomfort and bilateral lower extremity pitting edema. Patient's BUN/creatinine elevated, and patient subsequently transferred to [facility] for hepatorenal syndrome evaluation. Admits to [...] mg 2.5 mg nebulization Q6H PRN Albert Garica MD amiodarone (PACERONE) tablet 200 mg 200 [...] Culture And Stain AFB Culture And Stain [facility] Non-Dairy Nutrition Specialist Cytology [facility] Non-Dairy Nutrition Specialist Cytology DIFFERENTIAL, BODY FLUID DIFFERENTIAL, BODY FLUID Body Fluid/CSF - Path Review () Body Fluid/CSF - Path Review () [facility] BONE MARROW SMEAR, ASPIRATION, AND STAIN [facility] BONE MARROW SMEAR, ASPIRATION, AND STAIN CANCELED: [...] BODY REMOVAL; Surgeon: Scott Daley MD; Location: [facility]; Service: Gastroenterology; Laterality: N/A; Allergies: No [...] Normal range of motion. Integumentary: Warm, Dry, [place]. Neurologic: No obvious focal deficit Psychiatric: Cooperative, Appropriate mood & affect. Labs, Imaging, and Other Studies: Echo Results (last 7 days) Procedure Component Value Units Date/Time ECHO COMPLETE (DOPPLER / COLOR) W OR WO CONTRAST [[id number]] Collected: 11/30/24724 Order Status: Completed Updated: 11/30/24 1046 Narrative: TRANSTHORACIC ECHOCARDIOGRAPHY REPORT Demographics Patient Name: RIN JONES : 1960 Age: 64 year(s) Corporate ID Number: [id number] Gender Female Postpartum Nurse: Giovanna Rock Height: 67 inches [facility] Referring Physician: HUEY HURTADO Weight: 225 pounds Interpreting JESSICA RAMYOND MD BMI: 35.24 kg/m^2 Physician: Date of Service: 11/30/2024 Blood Pressure: 118/59 mmHg Room Number: 579 Type of Study: TTE procedure: ECHO COMPLETE (DOPPLER / COLOR) W OR WO CONTRAST. Patient Status: Routine IP Study Location: [facility] Quality: Adequate visualization History/Tech Notes: Indication: [...] 1.35 m/s E/A ratio: 0.97 m/s Volume ecmerleoq451.99 LV length: 8.51 cm ml Volume zmmuzbqo87.96 ml LVOT diameter: 1.79 cm Normal sized [...] Valve TR velocity: 2.51 m/s TR gradient: 25.73080 mmHg Estimated RAP: 3 mmHg RVSP: 28.12 [...] (DOPPLER / COLOR) W OR WO CONTRAST [[id number]] Collected: 11/30/24724 Order Status: Completed Updated: 11/30/24 1046 Narrative: TRANSTHORACIC ECHOCARDIOGRAPHY REPORT Demographics Patient Name: RIN JONES : 1960 Age: 64 year(s) Corporate ID Number: [id number] Gender Female Postpartum Nurse: Giovanna Pranav Height: 67 inches [facility] Referring Physician: HUEY HURTADO Weight: 225 pounds [...] 1.35 m/s E/A ratio: 0.97 m/s Volume skgfajsjp389.99 LV length: 8.51 cm ml Volume nbpeohii49.96 ml LVOT diameter: 1.79 cm Normal sized [...] Valve TR velocity: 2.51 m/s TR gradient: 25.07549 mmHg Estimated RAP: 3 mmHg RVSP: 28.12 [...] imaging. Assessment and Plan: *Paroxysmal Atrial Fib [id number] of 2 also have some wide-complex tachycardia [...] 90 BPM ATRIAL RATE (MCT) 90 BPM NM Interval 142 ms QRS-INTERVAL (MSEC) 92 ms QT Interval 378 ms QTC Interval 462 ms P Aroda 28 degrees R AXIS (MCT) -4 degrees T Wave Aroda 21 degrees [place] Diagnosis Normal sinus rhythm Septal infarct , age undetermined Abnormal ECG When compared with ECG of 04-DEC-2024 20:08, Septal infarct is now present Nonspecific T wave abnormality no longer evident in Anterior leads Glucose, Nova Meter Status: Abnormal Collection Time: 12/06/24 4:06 PM Result Value Ref Range POC-GLUCOSE 134 (H) 70 - 110 mg/dL Fishing [employer] Trimmer [id number] Glucose, Nova Meter Status: Abnormal Collection Time: 12/06/24 7:26 PM Result Value Ref Range POC-GLUCOSE 170 (H) 70 - 110 mg/dL Fishing Rod Trimmer [id number] CBC - Hemogram (-BKR) Status: Abnormal Collection [...] POC-GLUCOSE 159 (H) 70 - 110 mg/dL Fishing Rod Trimmer [id number] ECG 12 lead Status: None (In process) Collection Time: 12/07/24 10:29 AM Result Value Ref Range VENTRICULAR RATE EKG/MIN 91 BPM ATRIAL RATE (MCT) 91 BPM NM Interval 142 ms QRS-INTERVAL (MSEC) 88 ms QT Interval 376 ms QTC Interval 462 ms P Aroda 39 degrees R AXIS (MCT) -3 degrees T Wave Aroda 4 degrees [place] Diagnosis Normal sinus rhythm Nonspecific T wave abnormality Abnormal ECG When compared with ECG of 06-DEC-2024 13:16, No significant change was found Glucose, Nova Meter Status: Abnormal Collection Time: 12/07/24 10:54 AM Result Value Ref Range POC-GLUCOSE 146 (H) 70 - 110 mg/dL Fishing Rod Trimmer [id number] XR chest AP portable Narrative: PORTABLE CHEST; [...] ordered Need to be transferred to ICU product design manager working discharge plan * Lian Dominguez [...] Orientation: Anterior;Left Site Assessment Red;Yellow [place]-Wound Assessment [place] Odor None Pressure Injury Stage 2 Wound care performing NDNQI rounds. Patient on JORJE surface, agreeable to assessment. During head totoe skin inspection a MDRPI found on patients left anterior thigh due to urinary catheter tubing. MDRPI verified by second wound care retail team member. [facility] RN recommends cleansing site with NS, pat [...] Ext: +++ Pedal edema , no cyanosis STERILIZATION TECHNICIAN: Alert, No focal deficit noted grossly Psy: Cooperative Labs: Results for orders placed or performed during the hospital encounter of 11/30/24 (from the past 24 hours) Glucose, Nova Meter Status: Abnormal Collection Time: 12/06/24 10:36 AM Result Value Ref Range POC-GLUCOSE 150 (H) 70 - 110 mg/dL Fishing Rod Trimmer [id number] ECG 12 lead Status: None (In process) Collection Time: 12/06/24 1:16 PM Result Value Ref Range VENTRICULAR RATE EKG/MIN 90 BPM ATRIAL RATE (MCT) 90 BPM NM Interval 142 ms QRS-INTERVAL (MSEC) 92 ms QT Interval 378 ms QTC Interval 462 ms P Aroda 28 degrees R AXIS (MCT) -4 degrees T Wave Aroda 21 degrees [place] Diagnosis Normal sinus rhythm Septal infarct , age undetermined Abnormal ECG When compared with ECG of 04-DEC-2024 20:08, Septal infarct is now present Nonspecific T wave abnormality no longer evident in Anterior leads Glucose, Nova Meter Status: Abnormal Collection Time: 12/06/24 4:06 PM Result Value Ref Range POC-GLUCOSE 134 (H) 70 - 110 mg/dL Fishing Rod Trimmer [id number] Glucose, Nova Meter Status: Abnormal Collection Time: 12/06/24 7:26 PM Result Value Ref Range POC-GLUCOSE 170 (H) 70 - 110 mg/dL Fishing Rod Trimmer [id number] CBC - Hemogram (-BK) Status: Abnormal Collection Time: 12/07/24 3:59 AM [...] POC-GLUCOSE 159 (H) 70 - 110 mg/dL Fishing Rod Trimmer [id number] XR chest AP portable Narrative: PORTABLE CHEST; [...] for GFR - No emergent need of WELL POINT PUMPING SUPERVISOR - Monitor H/H and transfuse for Hgb less than 7.0 - Serologic workup ANCA pending Discussed with patient Follow up with [facility] in 1-2 weeks with renal function panel * Ariel Mills MD - 12/07/2024 7:24 AM EDT I saw Ms. Gar this morning. She denies any new issues [...] EDT EP progress note Patient Name: Mary Gar Admission Date: 11/30/2024 Primary Care Provider: [facility] Find-a-Doc Chief Complaint/Reason for Consult: No chief complaint on file. History of Present Illness: Mary Gar is a 64 y.o. female, admitted on: 11/30/2024 1:43 AM. presented to [facility] with swollen abdomen, abdominal discomfort and bilateral lower extremity pitting edema. Patient's BUN/creatinine elevated, and patient subsequently transferred to [facility] for hepatorenal syndrome evaluation. Admits to [...] Culture And Stain AFB Culture And Stain [facility] Non-Dairy Nutrition Specialist Cytology [facility] Non-Dairy Nutrition Specialist Cytology DIFFERENTIAL, BODY FLUID DIFFERENTIAL, BODY FLUID Body Fluid/CSF - Path Review () Body Fluid/CSF - Path Review () [facility] BONE MARROW SMEAR, ASPIRATION, AND STAIN [facility] BONE MARROW SMEAR, ASPIRATION, AND STAIN CANCELED: [...] BODY REMOVAL; Surgeon: Scott Daley MD; Location: [facility]; Service: Gastroenterology; Laterality: N/A; Allergies: No [...] Normal range of motion. Integumentary: Warm, Dry, [place]. Neurologic: No obvious focal deficit Psychiatric: Cooperative, Appropriate mood & affect. Labs, Imaging, and Other Studies: Echo Results (last 7 days) Procedure Component Value Units Date/Time ECHO COMPLETE (DOPPLER / COLOR) W OR WO CONTRAST [[id number]] Collected: 11/30/24724 Order Status: Completed Updated: 11/30/24 1046 Narrative: TRANSTHORACIC ECHOCARDIOGRAPHY REPORT Demographics Patient Name: RIN JONES : 1960 Age: 64 year(s) Corporate ID Number: [id number] Gender Female Postpartum Nurse: Giovanna Rock Height: 67 inches [facility] Referring Physician: HUEY HURTADO Weight: 225 pounds [...] 1.35 m/s E/A ratio: 0.97 m/s Volume niaqdxeku205.99 LV length: 8.51 cm ml Volume heopfvgr04.96 ml LVOT diameter: 1.79 cm Normal sized [...] Valve TR velocity: 2.51 m/s TR gradient: 25.50449 mmHg Estimated RAP: 3 mmHg RVSP: 28.12 [...] (DOPPLER / COLOR) W OR WO CONTRAST [[id number]] Collected: 11/30/2425 Order Status: Completed Updated: 11/30/24 1046 Narrative: TRANSTHORACIC ECHOCARDIOGRAPHY REPORT Demographics Patient Name: RIN JONES : 1960 Age: 64 year(s) Corporate ID Number: [id number] Gender Female Postpartum Nurse: Giovanna Rock Height: 67 inches [facility] Referring Physician: HUEY HURTADO Weight: 225 pounds [...] 1.35 m/s E/A ratio: 0.97 m/s Volume iffmsxvxd411.99 LV length: 8.51 cm ml Volume lgwnutgl95.96 ml LVOT diameter: 1.79 cm Normal sized [...] Valve TR velocity: 2.51 m/s TR gradient: 25.24782 mmHg Estimated RAP: 3 mmHg RVSP: 28.12 [...] imaging. Assessment and Plan: *Paroxysmal Atrial Fib [id number] of 2 also have some wide-complex tachycardia [...] Therapy Attempt to Treat Patient Name: Mary Gar Birthday: 1960 Date of Attempt: 12/06/2024 Pt [...] POC-GLUCOSE 140 (H) 70 - 110 mg/dL Fishing Rod Trimmer [id number] Glucose, Nova Meter Status: Abnormal Collection Time: 12/05/24 7:21 PM Result Value Ref Range POC-GLUCOSE 145 (H) 70 - 110 mg/dL Fishing Rod Trimmer [id number] CBC - Hemogram (-BKR) Status: Abnormal Collection [...] POC-GLUCOSE 143 (H) 70 - 110 mg/dL Fishing Rod Trimmer [id number] Glucose, Nova Meter Status: Abnormal Collection Time: 12/06/24 10:36 AM Result Value Ref Range POC-GLUCOSE 150 (H) 70 - 110 mg/dL Fishing Rod Trimmer [id number] ECG 12 lead Status: None (In process) Collection Time: 12/06/24 1:16 PM Result Value Ref Range VENTRICULAR RATE EKG/MIN 90 BPM ATRIAL RATE (MCT) 90 BPM NM Interval 142 ms QRS-INTERVAL (MSEC) 92 ms QT Interval 378 ms QTC Interval 462 ms P Aroda 28 degrees R AXIS (MCT) -4 degrees T Wave Aroda 21 degrees [place] Diagnosis Normal sinus rhythm Septal infarct , [...] OT Monitor kidney function No emergent dialysis product design manager consulted Discharge Planning: Patient can be discharged to rehab in day or 2 Pending renal improvement * Hill oBo MD - 12/06/2024 9:10 AM EDT Subjective [...] Ext: +++ Pedal edema , no cyanosis STERILIZATION TECHNICIAN: Alert, No focal deficit noted grossly Psy: Cooperative Labs: Results for orders placed or performed during the hospital encounter of 11/30/24 (from the past 24 hours) Glucose, Nova Meter Status: Abnormal Collection Time: 12/05/24 10:23 AM Result Value Ref Range POC-GLUCOSE 141 (H) 70 - 110 mg/dL Fishing Rod Trimmer [id number] Hemoglobin Status: Abnormal Collection Time: 12/05/24 3:36 PM Result Value Ref Range Hemoglobin 8.1 (L) 11.2 - 15.7 GM/DL Glucose, Nova Meter Status: Abnormal Collection Time: 12/05/24 5:01 PM Result Value Ref Range POC-GLUCOSE 140 (H) 70 - 110 mg/dL Fishing Rod Trimmer [id number] Glucose, Nova Meter Status: Abnormal Collection Time: 12/05/24 7:21 PM Result Value Ref Range POC-GLUCOSE 145 (H) 70 - 110 mg/dL Fishing Rod Trimmer [id number] CBC - Hemogram ([facility]) Status: Abnormal Collection [...] POC-GLUCOSE 143 (H) 70 - 110 mg/dL Fishing Rod Trimmer [id number] XR chest AP portable Narrative: PORTABLE CHEST [...] dictated by Dr. Haseeb Gil. Transcribed by Regnia Villasenor PA-C. Recent Labs Lab(s) Units 12/06/24 [...] for GFR - No emergent need of WELL POINT PUMPING SUPERVISOR - Monitor H/H and transfuse for Hgb less than 7.0 - Serologic workup pending Discussed with patient * Blanka Malagon MD - 12/06/2024 8:20 AM EDT Images from the original note were not included. PULMONARY AND CRITICAL CARE Consult Note Date of Service: 12/06/2024 HPI: This is a 64 y.o. year old female with past medical history as below. She initially presented to [facility] with swollen abdomen, abdominal discomfort, and bilateral lower extremity pain. Her creatinine was elevated and as a result, she was transferred to [facility] for he patorenal syndrome. Upon arrival [...] BODY REMOVAL; Surgeon: Scott Daley MD; Location: [facility]; Service: Gastroenterology; Laterality: N/A; Allergies: No [...] POC-GLUCOSE 141 (H) 70 - 110 mg/dL Fishing Rod Trimmer [id number] Hemoglobin Status: Abnormal Collection Time: 12/05/24 3:36 PM Result Value Ref Range Hemoglobin 8.1 (L) 11.2 - 15.7 GM/DL Glucose, Nova Meter Status: Abnormal Collection Time: 12/05/24 5:01 PM Result Value Ref Range POC-GLUCOSE 140 (H) 70 - 110 mg/dL Fishing Rod Trimmer [id number] Glucose, Nova Meter Status: Abnormal Collection Time: 12/05/24 7:21 PM Result Value Ref Range POC-GLUCOSE 145 (H) 70 - 110 mg/dL Fishing Rod Trimmer [id number] CBC - Hemogram ([facility]KR) Status: Abnormal Collection [...] POC-GLUCOSE 143 (H) 70 - 110 mg/dL Fishing Rod Trimmer [id number] Radiology Radiology Results (last day) Procedure Component Value Units Date/Time XR chest AP portable [[id number]] Resulted: 12/06/24 0806 Order Status: Sent Updated: 12/06/24 08 Microbiology: Microbiology Results (last 7 days) Procedure Component Value Units Date/Time Anaerobic Culture [[id number]] Collected: 11/30/24 1603 Order Status: Completed Specimen: Peritoneal Fluid from Body Fluid Updated: 12/05/24 0634 Result No Anaerobic growth Narrative: Specimen Description: peritoneal fluid Blood Culture [[id number]] Collected: 11/30/24 0340 Order Status: Completed Specimen: Blood from Arm, Left Updated: 12/05/24 0501 Result No growth in 5 days Blood Culture [[id number]] Collected: 11/30/24 0342 Order Status: Completed Specimen: Blood from Arm, Right Updated: 12/05/24 0501 Result No growth in 5 days Body Fluid Culture + Gram Stain [[id number]] Collected: 11/30/24 1603 Order Status: Completed Specimen: Peritoneal Fluid from Body Fluid Updated: 12/03/24 0907 Result No growth Gram Stain Result No organisms seen No cells seen Narrative: Specimen Description: peritoneal fluid Body Fluid/CSF - Path Review () [[id number]] Collected: 11/30/24 1603 Order Status: Completed Specimen: Peritoneal Fluid from Body Fluid Updated: 12/03/24 0654 SENT TO PATHOLOGY FOR REVIEW Yes Scan Result Mesothelial cells. MD German 12/02/2024 AFB Culture And Stain [[id number]] Collected: 11/30/24 1603 Order Status: Completed Specimen: Peritoneal Fluid from Body Fluid Updated: 12/01/24 1410 AFB Smear No acid fast bacilli seen Narrative: Specimen Description: peritoneal fluid Glucose, body fluid [[id number]] Collected: 11/30/24 1603 Order Status: Completed Specimen: Body Fluid from Peritoneal Fluid Updated: 12/01/24 0710 Glucose, Body Fluid 107 mg/dL BODY FLUID TYPE Peritoneal Narrative: This test has been modified from the motorcycle racer's instructions and its performance characteristics were determined by the laboratory. The reference intervals and other method performance specifications are unavailable for this test. It is recommended to interpret body fluid concentrations in comparison with the corresponding serum or plasma concentrations and to integrate test results into the clinical context. Protein, body fluid [[id number]] Collected: 11/30/241602 Order Status: Completed Specimen: Body Fluid from Peritoneal Fluid Updated: 12/01/24 0710 Protein, Fluid 1.9 g/dL BODY FLUID TYPE Peritoneal Narrative: This test has been modified from the motorcycle racer's instructions and its performance characteristics were determined by the laboratory. The reference intervals and other method performance specifications are unavailable for this test. It is recommended to interpret body fluid concentrations in comparison with the corresponding serum or plasma concentrations and to integrate test results into the clinical context. Urine Culture [[id number]] Collected: 11/30/24 1135 Order Status: Completed Specimen: Urine, Clean Catch Updated: 12/01/24648 Result Recollect Specimen - 3 or more organisms suggests contamination Body fluid cell count with differential [[id number]] (Abnormal) Collected: 11/30/241602 Order Status: Completed Specimen: [...] fluids are not defined. DIFFERENTIAL, BODY FLUID [[id number]] Collected: 11/30/241602 Order Status: Completed Specimen: Peritoneal Fluid from Body Fluid Updated: 11/30/242048 Neutrophils Fluid 5 % Lymphocytes Fluid 46 % Unidentified Mononuclear Cells BF 49 % Lactate dehydrogenase (LDH), body fluid [[id number]] Collected: 11/30/241602 Order Status: Completed Specimen: Peritoneal Fluid from Body Fluid Updated: 11/30/24 1819 LDH, Fluid 71 U/L BODY FLUID TYPE Peritoneal Narrative: This test has been modified from the motorcycle racer's instructions and its performance characteristics were determined by the laboratory. The reference intervals and other method performance specifications are unavailable for this test. It is recommended to interpret body fluid concentrations in comparison with the corresponding serum or plasma concentrations and to integrate test results into the clinical context. Fungus Culture W/ROSA MARIA Or Nimisha Ink [[id number]] Collected: 11/30/24 1603 Order Status: Completed Specimen: Peritoneal Fluid from Body Fluid Updated: 11/30/24 1754 ROSA MARIA Prep No fungal elements seen Narrative: Specimen Description: peritoneal fluid Total Protein, Body Fluid(SENDOUT) [[id number]] Collected: 11/30/24 1603 Order Status: Canceled Specimen: Peritoneal Fluid from Body Fluid Updated: 11/30/24 1634 Glucose Body Fluid(SENDOUT) [[id number]] Collected: 11/30/24 1603 Order Status: Canceled Specimen: Peritoneal Fluid from Body Fluid Updated: 11/30/24 1634 Urine Culture [[id number]] Collected: 11/30/24 1135 Order Status: Canceled Specimen: [...] to continue with albumin/diuretics no indication for WELL POINT PUMPING SUPERVISOR Oxygenation improved 3 L nasal cannula, leg [...] personally evaluated the patient and performed a zavf-rv-zxdi diagnostic evaluation on this patient; I have reviewed history, performed physical examination, reviewed laboratory studies. , andreviewed images independent of radiologist. I have actively directed the medical care, formulated assessemnt and plan of care. Patient requires a high complexity of decision making for assessment. 46 minutes pulmonary care clinical time was spent. Voice sales special agent technology (Neul) is used for dictation of this note and sound-alike words might be erroneously placed despite reviewing the note for accuracy.Errors in dictation may reflect use of voice recognition software and not all errors in sales special agent may have been detectedprior to signing * Ariel Mills MD - 12/06/2024 7:50 AM EDT I saw Ms. Gar this morning. She is in no distress. [...] EDT EP progress note Patient Name: Mary Gar Admission Date: 11/30/2024 Primary Care Provider: [facility] Find-a-Doc Chief Complaint/Reason for Consult: No chief complaint on file. History of Present Illness: Mary Gar is a 64 y.o. female, admitted on: 11/30/2024 1:43 AM. presented to [facility] with swollen abdomen, abdominal discomfort and bilateral lower extremity pitting edema. Patient's BUN/creatinine elevated, and patient subsequently transferred to [facility] for hepatorenal syndrome evaluation. Admits to [...] IV 25 g 25 g intravenous Q6H [facility] Timothy Bai MD 25 g at 12/05/24 [...] Culture And Stain AFB Culture And Stain [facility] Non-Dairy Nutrition Specialist Cytology [facility] Non-Dairy Nutrition Specialist Cytology DIFFERENTIAL, BODY FLUID DIFFERENTIAL, BODY FLUID Body Fluid/CSF - Path Review () Body Fluid/CSF - Path Review () [facility] BONE MARROW SMEAR, ASPIRATION, AND STAIN [facility] BONE MARROW SMEAR, ASPIRATION, AND STAIN CANCELED: [...] BODY REMOVAL; Surgeon: Scott Daley MD; Location: [facility]; Service: Gastroenterology; Laterality: N/A; Allergies: No [...] Normal range of motion. Integumentary: Warm, Dry, [place]. Neurologic: No obvious focal deficit Psychiatric: Cooperative, Appropriate mood & affect. Labs, Imaging, and Other Studies: Echo Results (last 7 days) Procedure Component Value Units Date/Time ECHO COMPLETE (DOPPLER / COLOR) W OR WO CONTRAST [[id number]] Collected: 11/30/2425 Order Status: Completed Updated: 11/30/24 1046 Narrative: TRANSTHORACIC ECHOCARDIOGRAPHY REPORT Demographics Patient Name: RIN JONES : 1960 Age: 64 year(s) Corporate ID Number: [id number] Gender Female Postpartum Nurse: Giovanna Rock Height: 67 inches [facility] Referring Physician: HUEY HURTADO Weight: 225 pounds [...] 1.35 m/s E/A ratio: 0.97 m/s Volume vqaqgguen262.99 LV length: 8.51 cm ml Volume egchneuv50.96 ml LVOT diameter: 1.79 cm Normal sized [...] Valve TR velocity: 2.51 m/s TR gradient: 25.85554 mmHg Estimated RAP: 3 mmHg RVSP: 28.12 [...] (DOPPLER / COLOR) W OR WO CONTRAST [[id number]] Collected: 11/30/24724 Order Status: Completed Updated: 11/30/24 1046 Narrative: TRANSTHORACIC ECHOCARDIOGRAPHY REPORT Demographics Patient Name: RIN JONES : 1960 Age: 64 year(s) Corporate ID Number: [id number] Gender Female Postpartum Nurse: Giovanna Rock Height: 67 inches [facility] Referring Physician: HUEY HURTADO Weight: 225 pounds [...] 1.35 m/s E/A ratio: 0.97 m/s Volume vxaupdcfl510.99 LV length: 8.51 cm ml Volume saeqwaes47.96 ml LVOT diameter: 1.79 cm Normal sized [...] Valve TR velocity: 2.51 m/s TR gradient: 25.19993 mmHg Estimated RAP: 3 mmHg RVSP: 28.12 [...] imaging. Assessment and Plan: *Paroxysmal Atrial Fib [id number] of 2 also have some wide-complex tachycardia [...] Physical Therapy Initial Evaluation Patient Name: Mary Gar Date of : 1960 Date of Evaluation: [...] BODY REMOVAL; Surgeon: Scott Daley MD; Location: [facility]; Service: Gastroenterology; Laterality: N/A; General Visit [...] Mobility Not assessed, patient ambulatory. Outcome Measures [facility] Basic Mobility Inpatient Short Form [...] Ext: +++ Pedal edema , no cyanosis STERILIZATION TECHNICIAN: Alert, No focal deficit noted grossly Psy: Cooperative Labs: Results for orders placed or performed during the hospital encounter of 11/30/24 (from the past 24 hours) Glucose, Nova Meter Status: Abnormal Collection Time: 12/04/24 10:52 AM Result Value Ref Range POC-GLUCOSE 136 (H) 70 - 110 mg/dL Fishing Rod Trimmer [id number] Basic Metabolic Panel Status: Abnormal Collection Time: [...] POC-GLUCOSE 137 (H) 70 - 110 mg/dL Fishing Rod Trimmer [id number] ECG 12 lead Status: None (In process) Collection Time: 12/04/24 8:08 PM Result Value Ref Range SYSTOLIC BLOOD PRESSURE (MCT) 133 mmHg DIASTOLIC BLOOD PRESSURE (MCT) 61 mmHg VENTRICULAR RATE EKG/MIN 85 BPM ATRIAL RATE (MCT) 85 BPM NM Interval 140 ms QRS-INTERVAL (MSEC) 94 ms QT Interval 426 ms QTC Interval 506 ms P Aroda 44 degrees R AXIS (MCT) 27 degrees T Wave Aroda -27 degrees [place] Diagnosis Normal sinus rhythm Nonspecific T wave abnormality Abnormal ECG When compared with ECG of 04-DEC-2024 03:25, QT has lengthened Glucose, Nova Meter Status: Abnormal Collection Time: 12/04/24 10:20 PM Result Value Ref Range POC-GLUCOSE 147 (H) 70 - 110 mg/dL [employer]ishing [employer] Trimmer [id number] Hemoglobin Status: Abnormal Collection Time: 12/04/24 11:54 [...] POC-GLUCOSE 123 (H) 70 - 110 mg/dL [employer]ishing [employer] Trimmer [id number] XR chest AP portable Narrative: PORTABLE CHEST [...] renal function - No emergent need of WELL POINT PUMPING SUPERVISOR - Monitor H/H and transfuse for Hgb [...] history as below. She initially presented to [facility] with swollen abdomen, abdominal discomfort, and bilateral lower extremity pain. Her creatinine was elevated and as a result, she was transferred to [facility] for he patorenal syndrome. Upon arrival [...] BODY REMOVAL; Surgeon: Scott Daley MD; Location: [facility]; Service: Gastroenterology; Laterality: N/A; Allergies: No [...] POC-GLUCOSE 136 (H) 70 - 110 mg/dL [employer]ishing [employer] Trimmer [id number] Basic Metabolic Panel Status: Abnormal Collection Time: [...] POC-GLUCOSE 137 (H) 70 - 110 mg/dL Fishing [employer] Trimmer [id number] ECG 12 lead Status: None (In process) Collection Time: 12/04/24 8:08 PM Result Value Ref Range SYSTOLIC BLOOD PRESSURE (MCT) 133 mmHg DIASTOLIC BLOOD PRESSURE (MCT) 61 mmHg VENTRICULAR RATE EKG/MIN 85 BPM ATRIAL RATE (MCT) 85 BPM NM Interval 140 ms QRS-INTERVAL (MSEC) 94 ms QT Interval 426 ms QTC Interval 506 ms P Aroda 44 degrees R AXIS (MCT) 27 degrees T Wave Aroda -27 degrees [place] Diagnosis Normal sinus rhythm Nonspecific T wave abnormality Abnormal ECG When compared with ECG of 04-DEC-2024 03:25, QT has lengthened Glucose, Nova Meter Status: Abnormal Collection Time: 12/04/24 10:20 PM Result Value Ref Range POC-GLUCOSE 147 (H) 70 - 110 mg/dL Fishing Rod Trimmer [id number] Hemoglobin Status: Abnormal Collection Time: 12/04/24 11:54 [...] POC-GLUCOSE 123 (H) 70 - 110 mg/dL Fishing Rod Trimmer [id number] Radiology Radiology Results (last day) Procedure Component Value Units Date/Time XR chest AP portable [[id number]] Collected: 12/04/24 0923 Order Status: Completed Updated: [...] Procedure Component Value Units Date/Time Anaerobic Culture [[id number]] Collected: 11/30/24 1603 Order Status: Completed Specimen: Peritoneal Fluid from Body Fluid Updated: 12/05/24 0634 Result No Anaerobic growth Narrative: Specimen Description: peritoneal fluid Blood Culture [[id number]] Collected: 11/30/24 0340 Order Status: Completed Specimen: Blood from Arm, Left Updated: 12/05/24 0501 Result No growth in 5 days Blood Culture [[id number]] Collected: 11/30/24 0342 Order Status: Completed Specimen: Blood from Arm, Right Updated: 12/05/24 0501 Result No growth in 5 days Body Fluid Culture + Gram Stain [[id number]] Collected: 11/30/24 1603 Order Status: Completed Specimen: Peritoneal Fluid from Body Fluid Updated: 12/03/24 0907 Result No growth Gram Stain Result No organisms seen No cells seen Narrative: Specimen Description: peritoneal fluid Body Fluid/CSF - Path Review () [[id number]] Collected: 11/30/24 1603 Order Status: Completed Specimen: Peritoneal Fluid from Body Fluid Updated: 12/03/24 0654 SENT TO PATHOLOGY FOR REVIEW Yes Scan Result Mesothelial cells. MD German 12/02/2024 AFB Culture And Stain [[id number]] Collected: 11/30/24 1603 Order Status: Completed Specimen: Peritoneal Fluid from Body Fluid Updated: 12/01/24 1410 AFB Smear No acid fast bacilli seen Narrative: Specimen Description: peritoneal fluid Glucose, body fluid [[id number]] Collected: 11/30/241602 Order Status: Completed Specimen: Body Fluid from Peritoneal Fluid Updated: 12/01/24709 Glucose, Body Fluid 107 mg/dL BODY FLUID TYPE Peritoneal Narrative: This test has been modified from the motorcycle racer's instructions and its performance characteristics were determined by the laboratory. The reference intervals and other method performance specifications are unavailable for this test. It is recommended to interpret body fluid concentrations in comparison with the corresponding serum or plasma concentrations and to integrate test results into the clinical context. Protein, body fluid [[id number]] Collected: 11/30/241602 Order Status: Completed Specimen: Body Fluid from Peritoneal Fluid Updated: 12/01/24709 Protein, Fluid 1.9 g/dL BODY FLUID TYPE Peritoneal Narrative: This test has been modified from the motorcycle racer's instructions and its performance characteristics were determined by the laboratory. The reference intervals and other method performance specifications are unavailable for this test. It is recommended to interpret body fluid concentrations in comparison with the corresponding serum or plasma concentrations and to integrate test results into the clinical context. Urine Culture [[id number]] Collected: 11/30/24 1135 Order Status: Completed Specimen: Urine, Clean Catch Updated: 12/01/24648 Result Recollect Specimen - 3 or more organisms suggests contamination Body fluid cell count with differential [[id number]] (Abnormal) Collected: 11/30/241602 Order Status: Completed Specimen: [...] fluids are not defined. DIFFERENTIAL, BODY FLUID [[id number]] Collected: 11/30/241602 Order Status: Completed Specimen: Peritoneal Fluid from Body Fluid Updated: 11/30/242048 Neutrophils Fluid 5 % Lymphocytes Fluid 46 % Unidentified Mononuclear Cells BF 49 % Lactate dehydrogenase (LDH), body fluid [[id number]] Collected: 11/30/24 1603 Order Status: Completed Specimen: Peritoneal Fluid from Body Fluid Updated: 11/30/24 1819 LDH, Fluid 71 U/L BODY FLUID TYPE Peritoneal Narrative: This test has been modified from the motorcycle racer's instructions and its performance characteristics were determined by the laboratory. The reference intervals and other method performance specifications are unavailable for this test. It is recommended to interpret body fluid concentrations in comparison with the corresponding serum or plasma concentrations and to integrate test results into the clinical context. Fungus Culture W/ROSA MARIA Or Nimisha Ink [[id number]] Collected: 11/30/24 1603 Order Status: Completed Specimen: Peritoneal Fluid from Body Fluid Updated: 11/30/24 1754 ROSA MARIA Prep No fungal elements seen Narrative: Specimen Description: peritoneal fluid Total Protein, Body Fluid(SENDOUT) [[id number]] Collected: 11/30/24 1603 Order Status: Canceled Specimen: Peritoneal Fluid from Body Fluid Updated: 11/30/24 1634 Glucose Body Fluid(SENDOUT) [[id number]] Collected: 11/30/24 1603 Order Status: Canceled Specimen: Peritoneal Fluid from Body Fluid Updated: 11/30/24 1634 Urine Culture [[id number]] Collected: 11/30/24 1135 Order Status: Canceled Specimen: [...] and lisinopril. Per nephrology there is no WELL POINT PUMPING SUPERVISOR indication at this time. Ultrasound renal on [...] multidisciplinary team including nurse practitioner, nurse, RT, complaint inspector, pharmacist, and case management during multidisciplinary round. I Dr.Hazim Jeramy MD, have personally evaluated the patient and performed a duev-iz-chhz diagnostic evaluation on this patient; I have Obtained history, performed physical examination, reviewed laboratory studies. I have reviewed images independent of radiologist. I have actively directed the medical care, formulated diagnosis, and the plan of care. Patient requires a high complexity of decision making for assessment. Voice sales special agent technology (Neul) is used for dictation of this note and sound-alike words might be erroneously placed despite reviewing the note for accuracy. Errors in dictation may reflect use of voice recognition software and not all errors in sales special agent may have been detected prior to signing. [...] POC-GLUCOSE 136 (H) 70 - 110 mg/dL Fishing Rod Trimmer [id number] Basic Metabolic Panel Status: Abnormal Collection Time: [...] POC-GLUCOSE 137 (H) 70 - 110 mg/dL Fishing Rod Trimmer [id number] ECG 12 lead Status: None (In process) Collection Time: 12/04/24 8:08 PM Result Value Ref Range SYSTOLIC BLOOD PRESSURE (MCT) 133 mmHg DIASTOLIC BLOOD PRESSURE (MCT) 61 mmHg VENTRICULAR RATE EKG/MIN 85 BPM ATRIAL RATE (MCT) 85 BPM NM Interval 140 ms QRS-INTERVAL (MSEC) 94 ms QT Interval 426 ms QTC Interval 506 ms P Aroda 44 degrees R AXIS (MCT) 27 degrees T Wave Aroda -27 degrees [place] Diagnosis Normal sinus rhythm Nonspecific T wave abnormality Abnormal ECG When compared with ECG of 04-DEC-2024 03:25, QT has lengthened Glucose, Nova Meter Status: Abnormal Collection Time: 12/04/24 10:20 PM Result Value Ref Range POC-GLUCOSE 147 (H) 70 - 110 mg/dL Fishing Rod Trimmer [id number] Hemoglobin Status: Abnormal Collection Time: 12/04/24 11:54 [...] EDT EP progress note Patient Name: Mary Gar Admission Date: 11/30/2024 Primary Care Provider: [facility] Find-a-Doc Chief Complaint/Reason for Consult: No chief complaint on file. History of Present Illness: Mary Gar is a 64 y.o. female, admitted on: 11/30/2024 1:43 AM. presented to [facility] with swollen abdomen, abdominal discomfort and bilateral lower extremity pitting edema. Patient's BUN/creatinine elevated, and patient subsequently transferred to [facility] for hepatorenal syndrome evaluation. Admits to [...] albumin human 25% 25 g intravenous Q6H [facility] amiodarone 150 mg intravenous Once atorvastatin 20 [...] IV 25 g 25 g intravenous Q6H [facility] Timothy Bai MD albuterol 2.5 mg /3 [...] Huey Hurtado MD 20 mg at 12/03/24 213 benzocaine-menthoL (CEPACOL) lozenge 1 lozenge 1 lozenge buccal Q2H PRN Timothy Bai MD cefTRIAXone (ROCEPHIN) 2 g in sodium chloride 0.9 % (NS) 50 mL MELIDA IVPB 2 g intravenous Q24H MD Barney IVPB Stopped at 12/03/242204 dextrose 50% (D50W) injection 25 g 25 [...] Culture And Stain AFB Culture And Stain [facility] Non-Dairy Nutrition Specialist Cytology [facility] Non-Dairy Nutrition Specialist Cytology DIFFERENTIAL, BODY FLUID DIFFERENTIAL, BODY FLUID Body Fluid/CSF - Path Review () Body Fluid/CSF - Path Review () [facility] BONE MARROW SMEAR, ASPIRATION, AND STAIN [facility] BONE MARROW SMEAR, ASPIRATION, AND STAIN CANCELED: [...] BODY REMOVAL; Surgeon: Scott Daley MD; Location: [facility]; Service: Gastroenterology; Laterality: N/A; Allergies: No [...] Normal range of motion. Integumentary: Warm, Dry, [place]. Neurologic: No obvious focal deficit Psychiatric: Cooperative, Appropriate mood & affect. Labs, Imaging, and Other Studies: Echo Results (last 7 days) Procedure Component Value Units Date/Time ECHO COMPLETE (DOPPLER / COLOR) W OR WO CONTRAST [[id number]] Collected: 11/30/24724 Order Status: Completed Updated: 11/30/24 1046 Narrative: TRANSTHORACIC ECHOCARDIOGRAPHY REPORT Demographics Patient Name: RIN JONES : 1960 Age: 64 year(s) Corporate ID Number: [id number] Gender Female Postpartum Nurse: Giovanna Rock Height: [address] Referring [...] 1.35 m/s E/A ratio: 0.97 m/s Volume tvfgelotz209.99 LV length: 8.51 cm ml Volume kkkrhaku03.96 ml LVOT diameter: 1.79 cm Normal sized [...] Valve TR velocity: 2.51 m/s TR gradient: 25.96518 mmHg Estimated RAP: 3 mmHg RVSP: 28.12 [...] (DOPPLER / COLOR) W OR WO CONTRAST [[id number]] Collected: 11/30/2425 Order Status: Completed Updated: 11/30/24 104 Narrative: TRANSTHORACIC ECHOCARDIOGRAPHY REPORT Demographics Patient Name: RIN JONES : 1960 Age: 64 year(s) Corporate ID Number: [id number] Gender Female Postpartum Nurse: Giovanna Rock Height: 67 inches [facility] Referring Physician: HUEY HURTADO Weight: 225 pounds Interpreting JESSICA RAYMOND MD BMI: 35.24 kg/m^2 Physician: Date of Service: 11/30/2024 Blood Pressure: 118/59 mmHg Room Number: 579 Type of Study: TTE procedure: ECHO COMPLETE (DOPPLER / COLOR) W OR WO CONTRAST. Patient Status: Routine IP Study Location: [facility] Quality: Adequate visualization History/Tech Notes: Indication: [...] 1.35 m/s E/A ratio: 0.97 m/s Volume rhdidykgp792.99 LV length: 8.51 cm ml Volume zjeobelv81.96 ml LVOT diameter: 1.79 cm Normal sized [...] Valve TR velocity: 2.51 m/s TR gradient: 25.87003 mmHg Estimated RAP: 3 mmHg RVSP: 28.12 [...] imaging. Assessment and Plan: *Paroxysmal Atrial Fib [id number] of 2 also have some wide-complex tachycardia [...] 97 BPM ATRIAL RATE (MCT) 97 BPM NM Interval 150 ms QRS-INTERVAL (MSEC) 88 ms QT Interval 362 ms QTC Interval 459 ms P Aroda 40 degrees R AXIS (MCT) 8 degrees T Wave Aroda -8 degrees [place] Diagnosis Normal sinus rhythm Normal ECG No previous ECGs available Confirmed by DEYSI FOSS M.D. ([id number]) on 12/03/2024 5:59:01 PM Glucose, Nova Meter Status: Abnormal Collection Time: 12/03/24 10:45 AM Result Value Ref Range POC-GLUCOSE 156 (H) 70 - 110 mg/dL Fishing Rod Trimmer [id number] ECG 12 lead Status: None Collection Time: 12/03/24 2:16 PM Result Value Ref Range VENTRICULAR RATE EKG/MIN 136 BPM ATRIAL RATE (MCT) 73 BPM QRS-INTERVAL (MSEC) 88 ms QT Interval 304 ms QTC Interval 457 ms R AXIS (MCT) -11 degrees T Wave Aroda -58 degrees [place] Diagnosis Atrial fibrillation with rapid ventricular response Possible Anterolateral infarct , age undetermined Possible abberancy Confirmed by DEYSI FOSS M.D. ([id number]) on 12/03/2024 5:58:45 PM Glucose, Nova Meter Status: Abnormal Collection Time: 12/03/24 5:19 PM Result Value Ref Range POC-GLUCOSE 146 (H) 70 - 110 mg/dL Fishing Rod Trimmer [id number] Glucose, Nova Meter Status: Abnormal Collection Time: 12/03/24 9:41 PM Result Value Ref Range POC-GLUCOSE 146 (H) 70 - 110 mg/dL Fishing Rod Trimmer [id number] Hemoglobin Status: Abnormal Collection Time: 12/04/24 1:04 AM Result Value Ref Range Hemoglobin 9.0 (L) 11.2 - 15.7 GM/DL ECG 12 lead Status: None (In process) Collection Time: 12/04/24 3:25 AM Result Value Ref Range SYSTOLIC BLOOD PRESSURE (MCT) 165 mmHg DIASTOLIC BLOOD PRESSURE (MCT) 77 mmHg VENTRICULAR RATE EKG/MIN 80 BPM ATRIAL RATE (MCT) 80 BPM NM Interval 154 ms QRS-INTERVAL (MSEC) 76 ms QT Interval 380 ms QTC Interval 438 ms P Aroda 47 degrees R AXIS (MCT) 44 degrees T Wave Aroda -30 degrees [place] Diagnosis Normal sinus rhythm Low voltage QRS [...] POC-GLUCOSE 155 (H) 70 - 110 mg/dL Fishing Rod Trimmer [id number] Blood gas, arterial Status: Abnormal Collection Time: [...] ARTERIAL 8.6 (L) 12.0 - 18.0 g/dL [facility] COLLECTION SITE Right Brachial Arterial Puncture Yes Blood Gas O2 Delivery Device Cannula Oxygen Flow Rate 3 Blood Gas PT Temperature C 37.0 Sen's Test Not Applicable Critical Values Notification Critical Blood gas called to DAYANARA MATIAS . Results acknowledged/read back to [id number] and confirmed on 12/04/2024 07:09 ABG Number [...] history as below. She initially presented to [facility] with swollen abdomen, abdominal discomfort, and bilateral lower extremity pain. Her creatinine was elevated and as a result, she was transferred to [facility] for he patorenal syndrome. Upon arrival [...] BODY REMOVAL; Surgeon: Scott Daley MD; Location: [facility]; Service: Gastroenterology; Laterality: N/A; Allergies: No [...] 97 BPM ATRIAL RATE (MCT) 97 BPM NM Interval 150 ms QRS-INTERVAL (MSEC) 88 ms QT Interval 362 ms QTC Interval 459 ms P Aroda 40 degrees R AXIS (MCT) 8 degrees T Wave Aroda -8 degrees [place] Diagnosis Normal sinus rhythm Normal ECG No previous ECGs available Confirmed by DEYSI FOSS M.D. ([id number]) on 12/03/2024 5:59:01 PM Glucose, Nova Meter Status: Abnormal Collection Time: 12/03/24 10:45 AM Result Value Ref Range POC-GLUCOSE 156 (H) 70 - 110 mg/dL [employer] [employer]immer [id number] ECG 12 lead Status: None Collection Time: 12/03/24 2:16 PM Result Value Ref Range VENTRICULAR RATE EKG/MIN 136 BPM ATRIAL RATE (MCT) 73 BPM QRS-INTERVAL (MSEC) 88 ms QT Interval 304 ms QTC Interval 457 ms R AXIS (MCT) -11 degrees T Wave Aroda -58 degrees [place] Diagnosis Atrial fibrillation with rapid ventricular response Possible Anterolateral infarct , age undetermined Possible abberancy Confirmed by DEYSI FOSS M.D. ([id number]) on 12/03/2024 5:58:45 PM Glucose, Nova Meter Status: Abnormal Collection Time: 12/03/24 5:19 PM Result Value Ref Range POC-GLUCOSE 146 (H) 70 - 110 mg/dL [employer]immer [id number] Glucose, Nova Meter Status: Abnormal Collection Time: 12/03/24 9:41 PM Result Value Ref Range POC-GLUCOSE 146 (H) 70 - 110 mg/dL [employer]immer [id number] Hemoglobin Status: Abnormal Collection Time: 12/04/24 1:04 AM Result Value Ref Range Hemoglobin 9.0 (L) 11.2 - 15.7 GM/DL ECG 12 lead Status: None (In process) Collection Time: 12/04/24 3:25 AM Result Value Ref Range SYSTOLIC BLOOD PRESSURE (MCT) 165 mmHg DIASTOLIC BLOOD PRESSURE (MCT) 77 mmHg VENTRICULAR RATE EKG/MIN 80 BPM ATRIAL RATE (MCT) 80 BPM NM Interval 154 ms QRS-INTERVAL (MSEC) 76 ms QT Interval 380 ms QTC Interval 438 ms P Aroda 47 degrees R AXIS (MCT) 44 degrees T Wave Aroda -30 degrees [place] Diagnosis Normal sinus rhythm Low voltage QRS [...] POC-GLUCOSE 155 (H) 70 - 110 mg/dL F[employer] Trimmer [id number] Blood gas, arterial Status: Abnormal Collection Time: [...] ARTERIAL 8.6 (L) 12.0 - 18.0 g/dL [facility] COLLECTION SITE Right Brachial Arterial Puncture Yes Blood Gas O2 Delivery Device Cannula Oxygen Flow Rate 3 Blood Gas PT Temperature C 37.0 Sen's Test Not Applicable Critical Values Notification Critical Blood gas called to DAYANARA MATIAS . Results acknowledged/read back to [id number] and confirmed on 12/04/2024 07:09 ABG Number of Draw Attempts 1 FIO2 Blood Gas Temperature Corrected Results No No Radiology Radiology Results (last day) Procedure Component Value Units Date/Time XR chest AP portable [[id number]] Resulted: 12/04/24 075 Order Status: Sent Updated: 12/04/24 075 XR chest AP portable [[id number]] Collected: 12/03/241805 Order Status: Completed Updated: 12/03/24 1808 Narrative: [...] Procedure Component Value Units Date/Time Anaerobic Culture [[id number]] Collected: 11/30/24 1603 Order Status: Completed Specimen: Peritoneal Fluid from Body Fluid Updated: 12/04/24 0754 Result No Anaerobic growth Narrative: Specimen Description: peritoneal fluid Blood Culture [[id number]] Collected: 11/30/24 0340 Order Status: Completed Specimen: Blood from Arm, Left Updated: 12/04/24 0501 Result No growth in 4 days Blood Culture [[id number]] Collected: 11/30/24 0342 Order Status: Completed Specimen: Blood from Arm, Right Updated: 12/04/24 0501 Result No growth in 4 days Body Fluid Culture + Gram Stain [[id number]] Collected: 11/30/24 1603 Order Status: Completed Specimen: Peritoneal Fluid from Body Fluid Updated: 12/03/24 0907 Result No growth Gram Stain Result No organisms seen No cells seen Narrative: Specimen Description: peritoneal fluid Body Fluid/CSF - Path Review () [[id number]] Collected: 11/30/24 1603 Order Status: Completed Specimen: Peritoneal Fluid from Body Fluid Updated: 12/03/24 0654 SENT TO PATHOLOGY FOR REVIEW Yes Scan Result Mesothelial cells. MD German 12/02/2024 AFB Culture And Stain [[id number]] Collected: 11/30/24 1603 Order Status: Completed Specimen: Peritoneal Fluid from Body Fluid Updated: 12/01/24 1410 AFB Smear No acid fast bacilli seen Narrative: Specimen Description: peritoneal fluid Glucose, body fluid [[id number]] Collected: 11/30/24 1603 Order Status: Completed Specimen: Body Fluid from Peritoneal Fluid Updated: 12/01/24 0710 Glucose, Body Fluid 107 mg/dL BODY FLUID TYPE Peritoneal Narrative: This test has been modified from the motorcycle racer's instructions and its performance characteristics were determined by the laboratory. The reference intervals and other method performance specifications are unavailable for this test. It is recommended to interpret body fluid concentrations in comparison with the corresponding serum or plasma concentrations and to integrate test results into the clinical context. Protein, body fluid [[id number]] Collected: 11/30/241602 Order Status: Completed Specimen: Body Fluid from Peritoneal Fluid Updated: 12/01/24 0710 Protein, Fluid 1.9 g/dL BODY FLUID TYPE Peritoneal Narrative: This test has been modified from the motorcycle racer's instructions and its performance characteristics were determined by the laboratory. The reference intervals and other method performance specifications are unavailable for this test. It is recommended to interpret body fluid concentrations in comparison with the corresponding serum or plasma concentrations and to integrate test results into the clinical context. Urine Culture [[id number]] Collected: 11/30/24 1135 Order Status: Completed Specimen: Urine, Clean Catch Updated: 12/01/24648 Result Recollect Specimen - 3 or more organisms suggests contamination Body fluid cell count with differential [[id number]] (Abnormal) Collected: 11/30/241602 Order Status: Completed Specimen: [...] fluids are not defined. DIFFERENTIAL, BODY FLUID [[id number]] Collected: 11/30/241602 Order Status: Completed Specimen: Peritoneal Fluid from Body Fluid Updated: 11/30/242048 Neutrophils Fluid 5 % Lymphocytes Fluid 46 % Unidentified Mononuclear Cells BF 49 % Lactate dehydrogenase (LDH), body fluid [[id number]] Collected: 11/30/241602 Order Status: Completed Specimen: Peritoneal Fluid from Body Fluid Updated: 11/30/24 1819 LDH, Fluid 71 U/L BODY FLUID TYPE Peritoneal Narrative: This test has been modified from the motorcycle racer's instructions and its performance characteristics were determined by the laboratory. The reference intervals and other method performance specifications are unavailable for this test. It is recommended to interpret body fluid concentrations in comparison with the corresponding serum or plasma concentrations and to integrate test results into the clinical context. Fungus Culture W/ROSA MARIA Or Nimisha Ink [[id number]] Collected: 11/30/24 1603 Order Status: Completed Specimen: Peritoneal Fluid from Body Fluid Updated: 11/30/24 1754 ROSA MRAIA Prep No fungal elements seen Narrative: Specimen Description: peritoneal fluid Total Protein, Body Fluid(SENDOUT) [[id number]] Collected: 11/30/24 1603 Order Status: Canceled Specimen: Peritoneal Fluid from Body Fluid Updated: 11/30/24 1634 Glucose Body Fluid(SENDOUT) [[id number]] Collected: 11/30/24 1603 Order Status: Canceled Specimen: Peritoneal Fluid from Body Fluid Updated: 11/30/24 1634 Urine Culture [[id number]] Collected: 11/30/24 1135 Order Status: Canceled Specimen: [...] and lisinopril. Per nephrology there is no WELL POINT PUMPING SUPERVISOR indication at this time. Ultrasound renal on [...] multidisciplinary team including nurse practitioner, nurse, RT, complaint inspector, pharmacist, and case management during multidisciplinary round. I Dr.Hazim Jeramy MD, have personally evaluated the patient and performed a [id number] diagnostic evaluation on this patient; I have Obtained history, performed physical examination, reviewed laboratory studies. I have reviewed images independent of radiologist. I have actively directed the medical care, formulated diagnosis, and the plan of care. Patient requires a high complexity of decision making for assessment. Voice sales special agent technology (Neul) is used for dictation of this note and sound-alike words might be erroneously placed despite reviewing the note for accuracy. Errors in dictation may reflect use of voice recognition software and not all errors in sales special agent may have been detected prior to signing. [...] Ext: +++ Pedal edema , no cyanosis STERILIZATION TECHNICIAN: Alert, No focal deficit noted grossly Psy: [...] 97 BPM ATRIAL RATE (MCT) 97 BPM NM Interval 150 ms QRS-INTERVAL (MSEC) 88 ms QT Interval 362 ms QTC Interval 459 ms P Aroda 40 degrees R AXIS (MCT) 8 degrees T Wave Aroda -8 degrees [place] Diagnosis Normal sinus rhythm Normal ECG No previous ECGs available Confirmed by DEYSI FOSS M.D. ([id number]) on 12/03/2024 5:59:01 PM Glucose, Nova Meter Status: Abnormal Collection Time: 12/03/24 10:45 AM Result Value Ref Range POC-GLUCOSE 156 (H) 70 - 110 mg/dL [facility] [employer] [facility] [id number] ECG 12 lead Status: None Collection Time: 12/03/24 2:16 PM Result Value Ref Range VENTRICULAR RATE EKG/MIN 136 BPM ATRIAL RATE (MCT) 73 BPM QRS-INTERVAL (MSEC) 88 ms QT Interval 304 ms QTC Interval 457 ms R AXIS (MCT) -11 degrees T Wave Aroda -58 degrees [place] Diagnosis Atrial fibrillation with rapid ventricular response Possible Anterolateral infarct , age undetermined Possible abberancy Confirmed by DEYSI FOSS M.D. ([id number]) on 12/03/2024 5:58:45 PM Glucose, Nova Meter Status: Abnormal Collection Time: 12/03/24 5:19 PM Result Value Ref Range POC-GLUCOSE 146 (H) 70 - 110 mg/dL [employer] [employer]immer [id number] Glucose, Nova Meter Status: Abnormal Collection Time: 12/03/24 9:41 PM Result Value Ref Range POC-GLUCOSE 146 (H) 70 - 110 mg/dL [employer] [employer] [facility] [id number] Hemoglobin Status: Abnormal Collection Time: 12/04/24 1:04 AM Result Value Ref Range Hemoglobin 9.0 (L) 11.2 - 15.7 GM/DL ECG 12 lead Status: None (In process) Collection Time: 12/04/24 3:25 AM Result Value Ref Range SYSTOLIC BLOOD PRESSURE (MCT) 165 mmHg DIASTOLIC BLOOD PRESSURE (MCT) 77 mmHg VENTRICULAR RATE EKG/MIN 80 BPM ATRIAL RATE (MCT) 80 BPM NM Interval 154 ms QRS-INTERVAL (MSEC) 76 ms QT Interval 380 ms QTC Interval 438 ms P [place] 47 degrees R AXIS (MCT) 44 degrees T Wave Aroda -30 degrees [place] Diagnosis Normal sinus rhythm Low voltage QRS [...] POC-GLUCOSE 155 (H) 70 - 110 mg/dL [facility] [employer] [facility] [id number] Blood gas, arterial Status: Abnormal Collection Time: [...] ARTERIAL 8.6 (L) 12.0 - 18.0 g/dL [facility] COLLECTION SITE Right Brachial Arterial Puncture Yes Blood Gas O2 Delivery Device Cannula Oxygen Flow Rate 3 Blood Gas PT Temperature C 37.0 Sen's Test Not Applicable Critical Values Notification Critical Blood gas called to DAYANARA MATIAS . Results acknowledged/read back to [id number] and confirmed on 12/04/2024 07:09 ABG Number [...] renal function - No emergent need of WELL POINT PUMPING SUPERVISOR - Monitor H/H and transfuse for Hgb [...] Ext: +++ Pedal edema , no cyanosis STERILIZATION TECHNICIAN: Alert, No focal deficit noted grossly Psy: Cooperative Labs: Results for orders placed or performed during the hospital encounter of 11/30/24 (from the past 24 hours) Glucose, Nova Meter Status: Abnormal Collection Time: 12/02/24 5:18 PM Result Value Ref Range POC-GLUCOSE 128 (H) 70 - 110 mg/dL [facility] [employer] [facility] [id number] Hemoglobin Status: Abnormal Collection Time: 12/02/24 6:03 PM Result Value Ref Range Hemoglobin 9.1 (L) 11.2 - 15.7 GM/DL Glucose, Nova Meter Status: Abnormal Collection Time: 12/02/24 8:06 PM Result Value Ref Range POC-GLUCOSE 144 (H) 70 - 110 mg/dL [facility] [employer] [facility] [id number] Hemoglobin Status: Abnormal Collection Time: 12/02/24 11:06 PM Result Value Ref Range Hemoglobin 8.9 (L) 11.2 - 15.7 GM/DL Glucose, Nova Meter Status: Abnormal Collection Time: 12/03/24 1:10 AM Result Value Ref Range POC-GLUCOSE 164 (H) 70 - 110 mg/dL [employer] [employer]immer [id number] Glucose, Nova Meter Status: Abnormal Collection Time: 12/03/24 1:12 AM Result Value Ref Range POC-GLUCOSE 168 (H) 70 - 110 mg/dL [employer] [employer] [id number] Glucose, Nova Meter Status: Abnormal Collection Time: 12/03/24 5:13 AM Result Value Ref Range POC-GLUCOSE 142 (H) 70 - 110 mg/dL [employer] [employer] [id number] Magnesium Status: Normal Collection Time: 12/03/24 7:39 [...] 97 BPM ATRIAL RATE (MCT) 97 BPM NM Interval 150 ms QRS-INTERVAL (MSEC) 88 ms QT Interval 362 ms QTC Interval 459 ms P Aroda 40 degrees R AXIS (MCT) 8 degrees T Wave Aroda -8 degrees [place] Diagnosis Normal sinus rhythm Normal ECG No previous ECGs available Glucose, Nova Meter Status: Abnormal Collection Time: 12/03/24 10:45 AM Result Value Ref Range POC-GLUCOSE 156 (H) 70 - 110 mg/dL [facility] [employer] [facility] [id number] ECG 12 lead Status: None (In process) Collection Time: 12/03/24 2:16 PM Result Value Ref Range VENTRICULAR RATE EKG/MIN 136 BPM ATRIAL RATE (MCT) 73 BPM QRS-INTERVAL (MSEC) 88 ms QT Interval 304 ms QTC Interval 457 ms R AXIS (MCT) -11 degrees T Wave Aroda -58 degrees [place] Diagnosis Atrial fibrillation with rapid ventricular response Possible Anterolateral infarct , age undetermined Abnormal ECG When compared with ECG of 03-DEC-2024 10:39, Atrial fibrillation has replaced Sinus rhythm CT bone marrow biopsy Narrative: CT GUIDED BONE MARROW ASPIRATION AND CORE BIOPSY. HISTORY: Pancytopenia. ATTENDING RADIOLOGIST: Dr. Haseeb Gil. PHYSICIAN MOBILE MANAGER: Sandra Ramsey PA-C PROCEDURE: After informed consent [...] renal function - No emergent need of WELL POINT PUMPING SUPERVISOR - Monitor H/H and transfuse for Hgb less than 7.0 * Brandan Kerr, PT - 12/03/2024 2:16 PM EDT Images from the original note were not included. Inpatient Physical Therapy Attempt to Treat Patient Name: Mary Gar Birthday: 1960 Date of Attempt: 12/03/2024 Time: 0721-0941. Gathered subjective history from patient and assessed vitals. Following this, nurse entered room reporting patient was in AFIB with RVR and requested PT hold evaluation at this time. PT will continueto follow. Pt had mobilized earlier this date with OT. Electronically signed by Brandan Kerr, PT - 12/03/2024 - 2:16 PM EDT * Destiney Llanes APRN - 12/03/2024 10:12 AM EDT Name: Mary Gar Admit Date: 11/30/2024 LOS: 3 days Location:[phone] PCP on file: [facility] Find-a-Doc Principal Problem: Anasarca ASSESSMENT & PLAN [...] Dr. Law Cote on December 07 in [place], [place] -No evidence of SBP -Continue Lactulose/Xifaxan at discharge. GI will sign off. SUBJECTIVE: Mary Gar doing well. Sitting in chair. Review of [...] POC-GLUCOSE 112 (H) 70 - 110 mg/dL [employer] [employer] Trimmer [id number] Glucose, Nova Meter Status: Abnormal Collection Time: 12/02/24 5:18 PM Result Value Ref Range POC-GLUCOSE 128 (H) 70 - 110 mg/dL [employer]immer [id number] Hemoglobin Status: Abnormal Collection Time: 12/02/24 6:03 PM Result Value Ref Range Hemoglobin 9.1 (L) 11.2 - 15.7 GM/DL Glucose, Nova Meter Status: Abnormal Collection Time: 12/02/24 8:06 PM Result Value Ref Range POC-GLUCOSE 144 (H) 70 - 110 mg/dL [employer] [employer] [facility]immer [id number] Hemoglobin Status: Abnormal Collection Time: 12/02/24 11:06 PM Result Value Ref Range Hemoglobin 8.9 (L) 11.2 - 15.7 GM/DL Glucose, Nova Meter Status: Abnormal Collection Time: 12/03/24 1:10 AM Result Value Ref Range POC-GLUCOSE 164 (H) 70 - 110 mg/dL [employer] [employer] [facility]immer [id number] Glucose, Nova Meter Status: Abnormal Collection Time: 12/03/24 1:12 AM Result Value Ref Range POC-GLUCOSE 168 (H) 70 - 110 mg/dL [employer] [employer]immer [id number] Glucose, Nova Meter Status: Abnormal Collection Time: 12/03/24 5:13 AM Result Value Ref Range POC-GLUCOSE 142 (H) 70 - 110 mg/dL [employer] [employer] [facility]immer [id number] Magnesium Status: Normal Collection Time: 12/03/24 7:39 [...] Value Units Date/Time CT bone marrow biopsy [[id number]] Collected: 12/02/241523 Order Status: Completed Updated: 12/02/24 4056 Narrative: CT GUIDED BONE MARROW ASPIRATION AND CORE BIOPSY. HISTORY: Pancytopenia. ATTENDING RADIOLOGIST: Dr. Haseeb Gil. PHYSICIAN MOBILE MANAGER: Sandra VanHoose, PA-C PROCEDURE: After informed consent was obtained [...] Transcribed by Sandra Ramsey PA-C. Ultrasound liver [[id number]] Collected: 11/30/24 1643 Order Status: Completed Updated: [...] and dictated by SABINE Yang. US paracentesis [[id number]] Collected: 11/30/24 1637 Order Status: Completed Updated: 11/30/241654 Narrative: ULTRASOUND-GUIDED PARACENTESIS HISTORY: Ascites ATTENDING PHYSICIAN: Dr. Haseeb Gil PHYSICIAN MOBILE MANAGER: Gabriel Velasco PA-C FINDINGS: After informed consent [...] by Gabriel Velasco PA-C. Ultrasound renal limited [[id number]] Collected: 11/30/24 1646 Order Status: Completed Updated: [...] Ronnell Tom MD XR chest AP portable [[id number]] Collected: 11/30/24 1215 Order Status: Completed Updated: [...] AM Result Value Ref Range Issue Date/Time [id number] Product Identification Red Blood Cells Product Code E9097X02 Status Information Transfused Unit Number [id number] Blood Type 5100 Cross Match Results Compatible Glucose, Nova Meter Status: Abnormal Collection Time: 12/02/24 12:51 PM Result Value Ref Range POC-GLUCOSE 112 (H) 70 - 110 mg/dL [employer] [employer] [facility]immer [id number] Glucose, Nova Meter Status: Abnormal Collection Time: 12/02/24 5:18 PM Result Value Ref Range POC-GLUCOSE 128 (H) 70 - 110 mg/dL [employer] [employer]immer [id number] Hemoglobin Status: Abnormal Collection Time: 12/02/24 6:03 PM Result Value Ref Range Hemoglobin 9.1 (L) 11.2 - 15.7 GM/DL Glucose, Nova Meter Status: Abnormal Collection Time: 12/02/24 8:06 PM Result Value Ref Range POC-GLUCOSE 144 (H) 70 - 110 mg/dL [facility] [employer] [facility]immer [id number] Hemoglobin Status: Abnormal Collection Time: 12/02/24 11:06 PM Result Value Ref Range Hemoglobin 8.9 (L) 11.2 - 15.7 GM/DL Glucose, Nova Meter Status: Abnormal Collection Time: 12/03/24 1:10 AM Result Value Ref Range POC-GLUCOSE 164 (H) 70 - 110 mg/dL [employer] [employer]immer [id number] Glucose, Nova Meter Status: Abnormal Collection Time: 12/03/24 1:12 AM Result Value Ref Range POC-GLUCOSE 168 (H) 70 - 110 mg/dL [employer] [employer] Trimmer [id number] Glucose, Nova Meter Status: Abnormal Collection Time: 12/03/24 5:13 AM Result Value Ref Range POC-GLUCOSE 142 (H) 70 - 110 mg/dL [employer] [employer] Trimmer [id number] Magnesium Status: Normal Collection Time: 12/03/24 7:39 [...] Pancytopenia. ATTENDING RADIOLOGIST: Dr. Haseeb Gil. PHYSICIAN MOBILE MANAGER: Sandra Ramsey PA-C PROCEDURE: After informed consent [...] Occupational Therapy Treatment Note Patient Name: Mary Gar Date of : 1960 Date of Treatment: [...] BODY REMOVAL; Surgeon: Scott Daley MD; Location: [facility]; Service: Gastroenterology; Laterality: N/A; General Visit [...] in Afib w/RVR and c/o SOB. EP SHEEP BONER notified.New orders taken. IV Amio 150mg bolus [...] BODY REMOVAL; Surgeon: Scott Daley MD; Location: [facility]; Service: Gastroenterology; Laterality: N/A; Allergies: Patient [...] K 4.2 12/02/2024 0338 CL 118 (H) 12/02/20248 CO2 19 (L) 12/02/2024337 BUN 55.1 (H) 12/02/2024337 CREATININE 3.55 (H) 12/02/20248 Component Value Date/Time CALCIUM 7.9 (L) 12/02/2024 0338 ALKPHOS 49 12/02/2024 0338 AST 32 12/02/2024 0338 ALT 8 12/02/2024 0338 BILITOT 0.9 12/02/2024 0338 Radiology Results (last 7 days) Procedure Component Value Units Date/Time CT bone marrow biopsy [[id number]] Collected: 12/02/24 152 Order Status: Completed Updated: 12/02/241525 Narrative: CT GUIDED BONE MARROW ASPIRATION AND CORE BIOPSY. HISTORY: Pancytopenia. ATTENDING RADIOLOGIST: Dr. Haseeb Gil. PHYSICIAN MOBILE MANAGER: Sandra Ramsey PA-C PROCEDURE: After informed consent [...] by Sandra Ramsey PA-C. Ultrasound renal limited [[id number]] Collected: 11/30/24 1646 Order Status: Completed Updated: 11/30/241648 Narrative: RENAL [...] dictated by Ronnell Tom MD Ultrasound liver [[id number]] Collected: 11/30/24 1643 Order Status: Completed Updated: [...] and dictated by SABINE Yang. US paracentesis [[id number]] Collected: 11/30/24 1637 Order Status: Completed Updated: 11/30/24 1655 Narrative: ULTRASOUND-GUIDED PARACENTESIS HISTORY: Ascites ATTENDING PHYSICIAN: Dr. Haseeb Gil PHYSICIAN MOBILE MANAGER: Gabriel Velasco PA-C FINDINGS: After informed consent [...] Gabriel Velasco PA-C. XR chest AP portable [[id number]] Collected: 11/30/24 1215 Order Status: Completed Updated: [...] Transcribed by Marielos Sotelo PA-C. renal complete [[id number]] Order Status: Canceled Assessment Pancytopenia. She had [...] Therapy Attempt to Treat Patient Name: Mary Gar Birthday: 1960 Date of Attempt: 12/02/2024 Pt on bedrest per DAYANARA Shepherd. Had biopsy earlier today and is now receiving blood transfusion. PT will follow up as time permits. Electronically signed by Brandan Kerr, PT - 12/02/2024 - 3:32 PM EDT * Destiney Llanes, GENERAL MANAGER ROAD [employer]ODUCTION - 12/02/2024 10:15 AM EDT Name: Mary Gar Admit Date: 11/30/2024 LOS: 2 days Location:[address] [place] [address] PCP on file: [facility] Find-a-Doc Principal Problem: Anasarca ASSESSMENT & PLAN [...] transfuse <7. Hem/onc following pancytopenia SUBJECTIVE: Mary Gar just returned from bone marrow biopsy. Sleepy. [...] Range POC-GLUCOSE 100 70 - 110 mg/dL [employer] [employer] Trimmer [id number] Hemoglobin Status: Abnormal Collection Time: 12/01/24 3:33 PM Result Value Ref Range Hemoglobin 8.0 (L) 11.2 - 15.7 GM/DL Glucose, Nova Meter Status: Abnormal Collection Time: 12/01/24 4:25 PM Result Value Ref Range POC-GLUCOSE 115 (H) 70 - 110 mg/dL [employer] [employer]immer [id number] Glucose, Nova Meter Status: Abnormal Collection Time: 12/01/24 7:34 PM Result Value Ref Range POC-GLUCOSE 128 (H) 70 - 110 mg/dL [employer]immer [id number] Hemoglobin Status: Abnormal Collection Time: 12/02/24 12:04 [...] POC-GLUCOSE 115 (H) 70 - 110 mg/dL [employer] Trimmer [id number] Hemoglobin Status: Abnormal Collection Time: 12/02/24 7:40 [...] Product Identification Red Blood Cells Product Code [id number] Status Information Ready for issue Unit Number [id number] Blood Type 5100 Cross Match Results Compatible Radiology Results (last 3 days) Procedure Component Value Units Date/Time Ultrasound liver [[id number]] Collected: 11/30/24 164 Order Status: Completed Updated: [...] and dictated by SABINE Yang. US paracentesis [[id number]] Collected: 11/30/24 1637 Order Status: Completed Updated: 11/30/241654 Narrative: ULTRASOUND-GUIDED PARACENTESIS HISTORY: Ascites ATTENDING PHYSICIAN: Dr. Haseeb Gil PHYSICIAN MOBILE MANAGER: Gabriel Velasco PA-C FINDINGS: After informed consent [...] by Gabriel Velasco PA-C. Ultrasound renal limited [[id number]] Collected: 11/30/24 1646 Order Status: Completed Updated: 11/30/241648 Narrative: RENAL [...] Ronnell Tom MD XR chest AP portable [[id number]] Collected: 11/30/24 1215 Order Status: Completed Updated: [...] Ext: +++ Pedal edema , no cyanosis STERILIZATION TECHNICIAN: Alert, No focal deficit noted grossly Psy: Cooperative Labs: Results for orders placed or performed during the hospital encounter of 11/30/24 (from the past 24 hours) Glucose, Nova Meter Status: None Collection Time: 12/01/24 10:32 AM Result Value Ref Range POC-GLUCOSE 100 70 - 110 mg/dL Fishing [employer] Trimmer [id number] Hemoglobin Status: Abnormal Collection Time: 12/01/24 3:33 PM Result Value Ref Range Hemoglobin 8.0 (L) 11.2 - 15.7 GM/DL Glucose, Nova Meter Status: Abnormal Collection Time: 12/01/24 4:25 PM Result Value Ref Range POC-GLUCOSE 115 (H) 70 - 110 mg/dL [employer] Trimmer [id number] Glucose, Nova Meter Status: Abnormal Collection Time: 12/01/24 7:34 PM Result Value Ref Range POC-GLUCOSE 128 (H) 70 - 110 mg/dL F[employer] Trimmer [id number] Hemoglobin Status: Abnormal Collection Time: 12/02/24 12:04 [...] POC-GLUCOSE 115 (H) 70 - 110 mg/dL Fishing [employer] Trimmer [id number] Hemoglobin Status: Abnormal Collection Time: 12/02/24 7:40 [...] Ascites ATTENDING PHYSICIAN: Dr. Haseeb Gil PHYSICIAN MOBILE MANAGER: Gabriel Velasco PA-C FINDINGS: After informed consent [...] 1960 Age: 64 year(s) Corporate ID Number: [id number] Gender Female Postpartum Nurse: Giovanna Rock Height: 67 inches [facility] Referring Physician: HUEY HURTADO Weight: 225 pounds [...] 1.35 m/s E/A ratio: 0.97 m/s Volume [id number] LV length: 8.51 cm ml Volume ixnxscxj77.96 ml LVOT diameter: 1.79 cm Normal sized [...] Valve TR velocity: 2.51 m/s TR gradient: 25.96160 mmHg Estimated RAP: 3 mmHg RVSP: 28.12 [...] renal function - No emergent need of WELL POINT PUMPING SUPERVISOR - Monitor H/H and transfuse for Hgb [...] Range POC-GLUCOSE 100 70 - 110 mg/dL Fishing Rod Trimmer [id number] Hemoglobin Status: Abnormal Collection Time: 12/01/24 3:33 PM Result Value Ref Range Hemoglobin 8.0 (L) 11.2 - 15.7 GM/DL Glucose, Nova Meter Status: Abnormal Collection Time: 12/01/24 4:25 PM Result Value Ref Range POC-GLUCOSE 115 (H) 70 - 110 mg/dL Fishing [employer] Trimmer [id number] Glucose, Nova Meter Status: Abnormal Collection Time: 12/01/24 7:34 PM Result Value Ref Range POC-GLUCOSE 128 (H) 70 - 110 mg/dL Fishing [employer] Trimmer [id number] Hemoglobin Status: Abnormal Collection Time: 12/02/24 12:04 AM Result Value Ref Range Hemoglobin 7.7 (L) 11.2 - 15.7 GM/DL CBC - Hemogram (-BKR) Status: Abnormal Collection Time: 12/02/24 3:38 AM [...] POC-GLUCOSE 115 (H) 70 - 110 mg/dL Fishing Rod Trimmer [id number] Hemoglobin Status: Abnormal Collection Time: 12/02/24 7:40 [...] Ascites ATTENDING PHYSICIAN: Dr. Haseeb Gil PHYSICIAN MOBILE MANAGER: Gabriel Velasco PA-C FINDINGS: After informed consent [...] 1960 Age: 64 year(s) Corporate ID Number: [id number] Gender Female Postpartum Nurse: Giovanna Pranav Height: 67 inches [facility] Referring Physician: HUEY HURTADO Weight: 225 pounds [...] 1.35 m/s E/A ratio: 0.97 m/s Volume [id number] LV length: 8.51 cm ml Volume .96 [...] Valve TR velocity: 2.51 m/s TR gradient: 25.29283 mmHg Estimated RAP: 3 mmHg RVSP: 28.12 [...] BODY REMOVAL; Surgeon: Scott Daley MD; Location: [facility]; Service: Gastroenterology; Laterality: N/A; Allergies: Patient [...] Date/Time NA 145 12/01/2024 0405 K 4.2 12/01/2024 0405 CL 116 (H) 12/01/2024 0405 CO2 20 (L) 12/01/2024404 BUN 68.3 (H) 12/01/2024404 CREATININE 4.13 (H) 12/01/2024404 Component Value Date/Time CALCIUM 8.0 (L) 12/01/2024404 ALKPHOS 61 12/01/2024404 AST 26 12/01/20245 ALT 15 12/01/2024404 BILITOT 0.5 12/01/2024404 Radiology Results (last 7 days) Procedure Component Value Units Date/Time Ultrasound renal limited [[id number]] Collected: 11/30/241645 Order Status: Completed Updated: 11/30/241648 [...] dictated by Ronnell Tom MD Ultrasound liver [[id number]] Collected: 11/30/241642 Order Status: Completed Updated: 11/30/241654 [...] and dictated by SABINE Yang. US paracentesis [[id number]] Collected: 11/30/24 1637 Order Status: Completed Updated: 11/30/24 1655 Narrative: ULTRASOUND-GUIDED PARACENTESIS HISTORY: Ascites ATTENDING PHYSICIAN: Dr. Haseeb Gil PHYSICIAN MOBILE MANAGER: Gabriel Velasco PA-C FINDINGS: After informed consent [...] Gabriel Velasco PA-C. XR chest AP portable [[id number]] Collected: 11/30/24 1215 Order Status: Completed Updated: [...] by Marielos Sotelo PA-C. US renal complete [[id number]] Order Status: Canceled Assessment Pancytopenia. White blood [...] Range POC-GLUCOSE 102 70 - 110 mg/dL [employer]ishing [employer] Trimmer [id number] Urinalysis, Reflex Microscopic and Culture If Indicated Status: Abnormal Collection Time: 11/30/24 11:35 AM Result Value Ref Range Color, UA Light Yellow Clarity, UA Turbid (A) Clear Specific [place], UA 1.011 1.005 - 1.030 pH, UA [...] Range POC-GLUCOSE 107 70 - 110 mg/dL Fishing [employer] Trimmer [id number] Glucose, Nova Meter Status: None Collection Time: 11/30/24 7:38 PM Result Value Ref Range POC-GLUCOSE 106 70 - 110 mg/dL Fishing Rod Trimmer [id number] Magnesium Status: Abnormal Collection Time: 12/01/24 4:05 [...] Osmolality Calc 309.8 mOsm/kg [facility] - [facility] Status: Abnormal Collection Time: 12/01/24 4:06 AM [...] AM Result Value Ref Range Issue Date/Time [id number] Product Identification Red Blood Cells Product Code [id number] Status Information Transfused Unit Number [id number] Blood Type 5100 Cross Match Results Compatible Glucose, Nova Meter Status: None Collection Time: 12/01/24 5:37 AM Result Value Ref Range POC-GLUCOSE 107 70 - 110 mg/dL Fishing [employer] Trimmer [id number] Type and Screen Status: None (Preliminary result) Collection Time: 12/01/24 7:08 AM Result Value Ref Range ABO/Rh O Positive Antibody Screen Negative Glucose, Nova Meter Status: None Collection Time: 12/01/24 8:12 AM Result Value Ref Range POC-GLUCOSE 103 70 - 110 mg/dL Fishing [employer] Trimmer [id number] Ultrasound liver Narrative: CLINICAL INDICATION: Abdominal pain. [...] Ascites ATTENDING PHYSICIAN: Dr. Haseeb Gil PHYSICIAN MOBILE MANAGER: Gabriel Velasco PA-C FINDINGS: After informed consent [...] 1960 Age: 64 year(s) Corporate ID Number: [id number] Gender Female Postpartum Nurse: Giovanna Rock Height: 67 inches [facility] Referring Physician: HUEY HURTADO Weight: 225 pounds [...] 1.35 m/s E/A ratio: 0.97 m/s Volume [id number] LV length: 8.51 cm ml Volume .96 [...] Valve TR velocity: 2.51 m/s TR gradient: 25.39386 mmHg Estimated RAP: 3 mmHg RVSP: 28.12 [...] Ext: +++ Pedal edema , no cyanosis STERILIZATION TECHNICIAN: Alert, No focal deficit noted grossly Psy: Cooperative Labs: Results for orders placed or performed during the hospital encounter of 11/30/24 (from the past 24 hours) Glucose, Nova Meter Status: None Collection Time: 11/30/24 10:46 AM Result Value Ref Range POC-GLUCOSE 102 70 - 110 mg/dL Fishing [employer] Trimmer [id number] Urinalysis, Reflex Microscopic and Culture If Indicated Status: Abnormal Collection Time: 11/30/24 11:35 AM Result Value Ref Range Color, UA Light Yellow Clarity, UA Turbid (A) Clear Specific [place], UA 1.011 1.005 - 1.030 pH, UA [...] Range POC-GLUCOSE 107 70 - 110 mg/dL Fishing Rod Trimmer [id number] Glucose, Nova Meter Status: None Collection Time: 11/30/24 7:38 PM Result Value Ref Range POC-GLUCOSE 106 70 - 110 mg/dL Fishing Rod Trimmer [id number] Magnesium Status: Abnormal Collection Time: 12/01/24 4:05 [...] Osmolality Calc 309.8 mOsm/kg CBC - [facility] Status: Abnormal Collection Time: 12/01/24 4:06 AM [...] AM Result Value Ref Range Issue Date/Time [id number] Product Identification Red Blood Cells Product Code [id number] Status Information Transfused Unit Number [id number] Blood Type 5100 Cross Match Results Compatible Glucose, Nova Meter Status: None Collection Time: 12/01/24 5:37 AM Result Value Ref Range POC-GLUCOSE 107 70 - 110 mg/dL Fishing Rod Trimmer [id number] Type and Screen Status: None (Preliminary result) Collection Time: 12/01/24 7:08 AM Result Value Ref Range ABO/Rh O Positive Antibody Screen Negative Glucose, Nova Meter Status: None Collection Time: 12/01/24 8:12 AM Result Value Ref Range POC-GLUCOSE 103 70 - 110 mg/dL Fishing [employer] Trimmer [id number] Ultrasound liver Narrative: CLINICAL INDICATION: Abdominal pain. [...] Ascites ATTENDING PHYSICIAN: Dr. Haseeb Gil PHYSICIAN MOBILE MANAGER: Gabriel Velasco PA-C FINDINGS: After informed consent [...] 1960 Age: 64 year(s) Corporate ID Number: [id number] Gender Female Postpartum Nurse: Giovanna Pranav Height: 67 inches [facility] Referring Physician: HUEY HURTADO Weight: 225 pounds [...] .99 LV length: 8.51 cm ml Volume jlpegjvn13.96 ml LVOT diameter: 1.79 cm Normal sized [...] Valve TR velocity: 2.51 m/s TR gradient: 25.64257 mmHg Estimated RAP: 3 mmHg RVSP: 28.12 [...] renal function - No emergent need of WELL POINT PUMPING SUPERVISOR - Monitor H/H and transfuse for Hgb less than 7.0 Discussed with patient * DAWOOD Pat/Amada - 12/01/2024 8:45 AM EDT Images from the original note were not included. Inpatient Occupational Therapy Attempt to Treat Patient Name: Mary Gar Birthday: 1960 Date of Attempt: 12/01/2024 Pt off floor for EGD at this time. OT to check back as time allows. Electronically signed by NBA Pat - 12/01/2024 - 1:38 PM EDT * NBA Gaona - 11/30/2024 2:31 PM EDT Images from the original note were not included. Inpatient Occupational Therapy Initial Evaluation Patient Name: Mary Gar Date of : 1960 Date of Evaluation: [...] The patient's fine motor coordination is intact. Wzonyn-wa-bqcq: LUE (3) Minimal Impairment: Able to accomplish [...] in chair, to don socks Outcome Measures [facility] Daily Living Functional Assessment How much help [...] (Minimal/Contact guard/Supervision/Setup) 4=None (Modified independent/Independent) The patient's [facility] raw score is 16. The patient currently [...] Present Illness History Of Present Illness Mary Gar is a 64 y.o. female presenting with past medical history of NAFLD October 2024, hypertension, hyperlipidemia, diabetes, CKD, CAD, arthritis. Patient presented to [facility] with swollen abdomen, abdominal discomfort and bilateral lower extremity pitting edema.Patient's BUN/creatinine elevated, and patient subsequently transferred to [facility] for hepatorenal syndrome evaluation. Admits to [...] days. Patient's niece forced patient to visit [facility] emergency room today she really loves me. [...] There are no active Hospital Problems. Mary Gar is a 64 y.o. female presenting with past medical history of NAFLD October 2024, hypertension, hyperlipidemia, diabetes, CAD, arthritis. Patient presented to [facility] with swollen abdomen, abdominal discomfort and bilateral lower extremity pitting edema. Patient diagnosed with anasarca, and admitted for hepatorenal/temporary dialysis evaluation. Problems as listed below: [facility] labs reviewed prior to current hospitalization: Hemoglobin 8.5, creatinine 4.6, BNP 26,[address] abdomen/pelvis: Ascites I ordered stat CMP, lactic acid, ammonia, procalcitonin, CBC, mag, PT, PTT, INR CBC at time of admission Anasarca likely secondary to hepatorenal syndrome: - Likely secondary to hepatic/renal dysfunction. IV albumin 25% Q6 x 2 days. Lasix 40 mg IV every 12. CT abdomen/pelvis from [facility] shows ascites. Therefore ordered paracentesis for a.m. [...] history as below. She initially presented to [facility] with swollen abdomen, abdominal discomfort, and bilateral lower extremity pain. Her creatinine was elevated and as a result, she was transferred to [facility] for he patorenal syndrome. Upon arrival [...] BODY REMOVAL; Surgeon: Scott Daley MD; Location: [facility]; Service: Gastroenterology; Laterality: N/A; Allergies: No [...] POC-GLUCOSE 134 (H) 70 - 110 mg/dL Fishing Rod Trimmer [id number] Glucose, Nova Meter Status: Abnormal Collection Time: 12/06/24 7:26 PM Result Value Ref Range POC-GLUCOSE 170 (H) 70 - 110 mg/dL Fishing [employer] Trimmer [id number] CBC - Hemogram ([facility]) Status: Abnormal Collection [...] POC-GLUCOSE 159 (H) 70 - 110 mg/dL Fishing Rod Trimmer [id number] ECG 12 lead Status: None (In process) Collection Time: 12/07/24 10:29 AM Result Value Ref Range VENTRICULAR RATE EKG/MIN 91 BPM ATRIAL RATE (MCT) 91 BPM NM Interval 142 ms QRS-INTERVAL (MSEC) 88 ms QT Interval 376 ms QTC Interval 462 ms P Aroda 39 degrees R AXIS (MCT) -3 degrees T Wave Aroda 4 degrees [place] Diagnosis Normal sinus rhythm Nonspecific T wave [...] 12.0 - 18.0 g/dL PaO2/FIO2 calculated 203.0 [facility] COLLECTION SITE Right Radial Arterial Puncture Yes Blood Gas PT Temperature C 37.0 Sen's Test Acceptable Critical Values Notification Critical Blood gas called to TRAY LORENZ RN . [place] [id number] and confirmed on 12/07/2024 10:51 ABG Number of Draw Attempts 1 FIO2 21.0 Blood Gas Temperature Corrected Results No No Glucose, Nova Meter Status: Abnormal Collection Time: 12/07/24 10:54 AM Result Value Ref Range POC-GLUCOSE 146 (H) 70 - 110 mg/dL Fishing [employer] Trimmer [id number] Radiology Radiology Results (last day) Procedure Component Value Units Date/Time XR chest AP portable [[id number]] Resulted: 12/07/24 1353 Order Status: Sent Updated: 12/07/24 1426 Microbiology: Microbiology Results (last 7 days) Procedure Component Value Units Date/Time Anaerobic Culture [[id number]] Collected: 11/30/24 1603 Order Status: Completed Specimen: Peritoneal Fluid from Body Fluid Updated: 12/05/24 0634 Result No Anaerobic growth Narrative: Specimen Description: peritoneal fluid Blood Culture [[id number]] Collected: 11/30/24 0340 Order Status: Completed Specimen: Blood from Arm, Left Updated: 12/05/24 0501 Result No growth in 5 days Blood Culture [[id number]] Collected: 11/30/24 0342 Order Status: Completed Specimen: Blood from Arm, Right Updated: 12/05/24 0501 Result No growth in 5 days Body Fluid Culture + Gram Stain [[id number]] Collected: 11/30/24 1603 Order Status: Completed Specimen: Peritoneal Fluid from Body Fluid Updated: 12/03/24 0907 Result No growth Gram Stain Result No organisms seen No cells seen Narrative: Specimen Description: peritoneal fluid Body Fluid/CSF - Path Review (SJ) [[id number]] Collected: 11/30/24 160 Order Status: Completed Specimen: Peritoneal Fluid from Body Fluid Updated: 12/03/24 0654 SENT TO PATHOLOGY FOR REVIEW Yes Scan Result Mesothelial cells. MD German 12/02/2024 AFB Culture And Stain [[id number]] Collected: 11/30/24 1603 Order Status: Completed Specimen: Peritoneal Fluid from Body Fluid Updated: 12/01/24 1410 AFB Smear No acid fast bacilli seen Narrative: Specimen Description: peritoneal fluid Glucose, body fluid [[id number]] Collected: 11/30/24 1603 Order Status: Completed Specimen: Body Fluid from Peritoneal Fluid Updated: 12/01/24 0710 Glucose, Body Fluid 107 mg/dL BODY FLUID TYPE Peritoneal Narrative: This test has been modified from the motorcycle racer's instructions and its performance characteristics were determined by the laboratory. The reference intervals and other method performance specifications are unavailable for this test. It is recommended to interpret body fluid concentrations in comparison with the corresponding serum or plasma concentrations and to integrate test results into the clinical context. Protein, body fluid [[id number]] Collected: 11/30/24 1603 Order Status: Completed Specimen: Body Fluid from Peritoneal Fluid Updated: 12/01/24 0710 Protein, Fluid 1.9 g/dL BODY FLUID TYPE Peritoneal Narrative: This test has been modified from the motorcycle racer's instructions and its performance characteristics were determined by the laboratory. The reference intervals and other method performance specifications are unavailable for this test. It is recommended to interpret body fluid concentrations in comparison with the corresponding serum or plasma concentrations and to integrate test results into the clinical context. Urine Culture [[id number]] Collected: 11/30/24 1135 Order Status: Completed Specimen: Urine, Clean Catch Updated: 12/01/24 0649 Result Recollect Specimen - 3 or more organisms suggests contamination Body fluid cell count with differential [[id number]] (Abnormal) Collected: 11/30/241602 Order Status: Completed Specimen: [...] fluids are not defined. DIFFERENTIAL, BODY FLUID [[id number]] Collected: 11/30/241602 Order Status: Completed Specimen: Peritoneal Fluid from Body Fluid Updated: 11/30/242048 Neutrophils Fluid 5 % Lymphocytes Fluid 46 % Unidentified Mononuclear Cells BF 49 % Lactate dehydrogenase (LDH), body fluid [[id number]] Collected: 11/30/241602 Order Status: Completed Specimen: Peritoneal Fluid from Body Fluid Updated: 11/30/241818 LDH, Fluid 71 U/L BODY FLUID TYPE Peritoneal Narrative: This test has been modified from the motorcycle racer's instructions and its performance characteristics were determined by the laboratory. The reference intervals and other method performance specifications are unavailable for this test. It is recommended to interpret body fluid concentrations in comparison with the corresponding serum or plasma concentrations and to integrate test results into the clinical context. Fungus Culture W/ROSA MARIA Or Nimisha Ink [[id number]] Collected: 11/30/241602 Order Status: Completed Specimen: Peritoneal Fluid from Body Fluid Updated: 11/30/24 1754 ROSA MARIA Prep No fungal elements seen Narrative: Specimen Description: peritoneal fluid Total Protein, Body Fluid(SENDOUT) [[id number]] Collected: 11/30/241602 Order Status: Canceled Specimen: Peritoneal Fluid from Body Fluid Updated: 11/30/24 1634 Glucose Body Fluid(SENDOUT) [[id number]] Collected: 11/30/241602 Order Status: Canceled Specimen: Peritoneal Fluid from Body Fluid Updated: 11/30/24 7017 ECHO Normal sized left ventricle. Normal left [...] to continue with albumin/diuretics no indication for WELL POINT PUMPING SUPERVISOR BIPAP 14/8 Fio2 50%,ABG in 2 hrs [...] personally evaluated the patient and performed a chjc-gp-mxdp diagnostic evaluation on this patient; I have reviewed history, performed physical examination, reviewed laboratory studies. , andreviewed images independent of radiologist. I have actively directed the medical care, formulated assessemnt and plan of care. Patient requires a high complexity of decision making for assessment. 46 minutes pulmonary care clinical time was spent. Voice sales special agent technology ([employer]) is used for dictation of this note and sound-alike words might be erroneously placed despite reviewing the note for accuracy.Errors in dictation may reflect use of voice recognition software and not all errors in sales special agent may have been detectedprior to signing * KENNEY Zaragoza - 12/07/2024 10:29 AM EDTAssociated Order(s): IP CONSULT TO CARE COORDINATION Summary: Pending SNF/Rehab Discharge Plan Progress Note [facility] can offer bed for patient, semi-private room. Address: [facility] [address], [place], [place] [address] - about 56 minutes (36 miles) from patient's address. [facility] started precert, 12/07, 10:33. Insurance will require updated PT/OT notes for rehab. Other SNF options: [facility] (over an hour away from home address), [facility], [facility]. Sister is requesting rehab. [...] call Jojo da silva at phone # [phone], received busy tone, unable to reach sister [...] intakes reported. 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 Requested chicken noodle soup for lunch. Agreeable to ONS TID. 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 She initially presented to [facility] with swollen abdomen, abdominal discomfort, and bilateral lower extremity pain. Her creatinine was elevated and as a result, she was transferred to [facility] for he patorenal syndrome. Upon arrival [...] BODY REMOVAL; Surgeon: Scott Daley MD; Location: [facility]; Service: Gastroenterology; Laterality: N/A; Allergies: No [...] POC-GLUCOSE 128 (H) 70 - 110 mg/dL Fishing Rod Trimmer [id number] Hemoglobin Status: Abnormal Collection Time: 12/02/24 6:03 PM Result Value Ref Range Hemoglobin 9.1 (L) 11.2 - 15.7 GM/DL Glucose, Nova Meter Status: Abnormal Collection Time: 12/02/24 8:06 PM Result Value Ref Range POC-GLUCOSE 144 (H) 70 - 110 mg/dL Fishing Rod Trimmer [id number] Hemoglobin Status: Abnormal Collection Time: 12/02/24 11:06 PM Result Value Ref Range Hemoglobin 8.9 (L) 11.2 - 15.7 GM/DL Glucose, Nova Meter Status: Abnormal Collection Time: 12/03/24 1:10 AM Result Value Ref Range POC-GLUCOSE 164 (H) 70 - 110 mg/dL Fishing Rod Trimmer [id number] Glucose, Nova Meter Status: Abnormal Collection Time: 12/03/24 1:12 AM Result Value Ref Range POC-GLUCOSE 168 (H) 70 - 110 mg/dL Fishing Rod Trimmer [id number] Glucose, Nova Meter Status: Abnormal Collection Time: 12/03/24 5:13 AM Result Value Ref Range POC-GLUCOSE 142 (H) 70 - 110 mg/dL Fishing Rod Trimmer [id number] Magnesium Status: Normal Collection Time: 12/03/24 7:39 [...] 97 BPM ATRIAL RATE (MCT) 97 BPM NM Interval 150 ms QRS-INTERVAL (MSEC) 88 ms QT Interval 362 ms QTC Interval 459 ms P Aroda 40 degrees R AXIS (MCT) 8 degrees T Wave Aroda -8 degrees [place] Diagnosis Normal sinus rhythm Normal ECG No previous ECGs available Glucose, Nova Meter Status: Abnormal Collection Time: 12/03/24 10:45 AM Result Value Ref Range POC-GLUCOSE 156 (H) 70 - 110 mg/dL Fishing Rod Trimmer [id number] ECG 12 lead Status: None (In process) Collection Time: 12/03/24 2:16 PM Result Value Ref Range VENTRICULAR RATE EKG/MIN 136 BPM ATRIAL RATE (MCT) 73 BPM QRS-INTERVAL (MSEC) 88 ms QT Interval 304 ms QTC Interval 457 ms R AXIS (MCT) -11 degrees T Wave Aroda -58 degrees [place] Diagnosis Atrial fibrillation with rapid ventricular response Possible Anterolateral infarct , age undetermined Abnormal ECG When compared with ECG of 03-DEC-2024 10:39, Atrial fibrillation has replaced Sinus rhythm Radiology Radiology Results (last day) Procedure Component Value Units Date/Time CT bone marrow biopsy [[id number]] Collected: 12/02/24 1524 Order Status: Completed Updated: 12/02/24 1556 Narrative: CT GUIDED BONE MARROW ASPIRATION AND CORE BIOPSY. HISTORY: Pancytopenia. ATTENDING RADIOLOGIST: Dr. Haseeb Gil. PHYSICIAN MOBILE MANAGER: Sandra Ramsey PA-C PROCEDURE: After informed consent [...] Date/Time Body Fluid Culture + Gram Stain [[id number]] Collected: 11/30/24 1603 Order Status: Completed Specimen: Peritoneal Fluid from Body Fluid Updated: 12/03/24 0907 Result No growth Gram Stain Result No organisms seen No cells seen Narrative: Specimen Description: peritoneal fluid Anaerobic Culture [[id number]] Collected: 11/30/24 1603 Order Status: Completed Specimen: Peritoneal Fluid from Body Fluid Updated: 12/03/24 0842 Result No Anaerobic growth Narrative: Specimen Description: peritoneal fluid Body Fluid/CSF - Path Review () [[id number]] Collected: 11/30/24 160 Order Status: Completed Specimen: Peritoneal Fluid from Body Fluid Updated: 12/03/24 0654 SENT TO PATHOLOGY FOR REVIEW Yes Scan Result Mesothelial cells. MD German 12/02/2024 Blood Culture [[id number]] Collected: 11/30/24 0340 Order Status: Completed Specimen: Blood from Arm, Left Updated: 12/03/24 0501 Result No growth in 3 days Blood Culture [[id number]] Collected: 11/30/24 0342 Order Status: Completed Specimen: Blood from Arm, Right Updated: 12/03/24 0501 Result No growth in 3 days AFB Culture And Stain [[id number]] Collected: 11/30/24 160 Order Status: Completed Specimen: Peritoneal Fluid from Body Fluid Updated: 12/01/24 1410 AFB Smear No acid fast bacilli seen Narrative: Specimen Description: peritoneal fluid Glucose, body fluid [[id number]] Collected: 11/30/24 160 Order Status: Completed Specimen: Body Fluid from Peritoneal Fluid Updated: 12/01/24 0710 Glucose, Body Fluid 107 mg/dL BODY FLUID TYPE Peritoneal Narrative: This test has been modified from the motorcycle racer's instructions and its performance characteristics were determined by the laboratory. The reference intervals and other method performance specifications are unavailable for this test. It is recommended to interpret body fluid concentrations in comparison with the corresponding serum or plasma concentrations and to integrate test results into the clinical context. Protein, body fluid [[id number]] Collected: 11/30/24 160 Order Status: Completed Specimen: Body Fluid from Peritoneal Fluid Updated: 12/01/24 0710 Protein, Fluid 1.9 g/dL BODY FLUID TYPE Peritoneal Narrative: This test has been modified from the motorcycle racer's instructions and its performance characteristics were determined by the laboratory. The reference intervals and other method performance specifications are unavailable for this test. It is recommended to interpret body fluid concentrations in comparison with the corresponding serum or plasma concentrations and to integrate test results into the clinical context. Urine Culture [[id number]] Collected: 11/30/24 1135 Order Status: Completed Specimen: Urine, Clean Catch Updated: 12/01/24 0649 Result Recollect Specimen - 3 or more organisms suggests contamination Body fluid cell count with differential [[id number]] (Abnormal) Collected: 11/30/241602 Order Status: Completed Specimen: [...] fluids are not defined. DIFFERENTIAL, BODY FLUID [[id number]] Collected: 11/30/241602 Order Status: Completed Specimen: Peritoneal Fluid from Body Fluid Updated: 11/30/242048 Neutrophils Fluid 5 % Lymphocytes Fluid 46 % Unidentified Mononuclear Cells BF 49 % Lactate dehydrogenase (LDH), body fluid [[id number]] Collected: 11/30/241602 Order Status: Completed Specimen: Peritoneal Fluid from Body Fluid Updated: 11/30/24 1819 LDH, Fluid 71 U/L BODY FLUID TYPE Peritoneal Narrative: This test has been modified from the motorcycle racer's instructions and its performance characteristics were determined by the laboratory. The reference intervals and other method performance specifications are unavailable for this test. It is recommended to interpret body fluid concentrations in comparison with the corresponding serum or plasma concentrations and to integrate test results into the clinical context. Fungus Culture W/ROSA MARIA Or Nimisha Ink [[id number]] Collected: 11/30/24 160 Order Status: Completed Specimen: Peritoneal Fluid from Body Fluid Updated: 11/30/24 1754 ROSA MARIA Prep No fungal elements seen Narrative: Specimen Description: peritoneal fluid Total Protein, Body Fluid(SENDOUT) [[id number]] Collected: 11/30/24 1603 Order Status: Canceled Specimen: Peritoneal Fluid from Body Fluid Updated: 11/30/24 1634 Glucose Body Fluid(SENDOUT) [[id number]] Collected: 11/30/24 1603 Order Status: Canceled Specimen: Peritoneal Fluid from Body Fluid Updated: 11/30/24 1634 Urine Culture [[id number]] Collected: 11/30/24 1135 Order Status: Canceled Specimen: [...] and lisinopril. Per nephrology there is no WELL POINT PUMPING SUPERVISOR indication at this time. Ultrasound renal on [...] multidisciplinary team including nurse practitioner, nurse, RT, complaint inspector, pharmacist, and case management during multidisciplinary round. I Dr.Hazim Jeramy MD, have personally evaluated the patient and performed a [id number] diagnostic evaluation on this patient; I have Obtained history, performed physical examination, reviewed laboratory studies. I have reviewed images independent of radiologist. I have actively directed the medical care, formulated diagnosis, and the plan of care. Patient requires a high complexity of decision making for assessment. Voice sales special agent technology (Neul) is used for dictation of this note and sound-alike words might be erroneously placed despite reviewing the note for accuracy. Errors in dictation may reflect use of voice recognition software and not all errors in sales special agent may have been detected prior to signing. It may contain errors and words that were not intended to be used. Please contact the provider for errors or clarifications. * Deysi Foss MD - 12/03/2024 11:11 AM EDTAssociated Order(s): FS_MODEL_IP IP CONSULT TO ELECTROPHYSIOLOGY EP Consult Note Patient Name: Mary Gar Admission Date: 11/30/2024 Primary Care Provider: JACKIE Find-a-Doc Chief Complaint/Reason for Consult: No chief complaint on file. History of Present Illness: Mary Gar is a 64 y.o. female, admitted on: 11/30/2024 1:43 AM. presented to [facility] with swollen abdomen, abdominal discomfort and bilateral lower extremity pitting edema. Patient's BUN/creatinine elevated, and patient subsequently transferred to [facility] for hepatorenal syndrome evaluation. Admits to [...] Culture And Stain AFB Culture And Stain [facility] Non-Dairy Nutrition Specialist Cytology [facility] Non-Dairy Nutrition Specialist Cytology DIFFERENTIAL, BODY FLUID DIFFERENTIAL, BODY FLUID Body Fluid/CSF - Path Review () Body Fluid/CSF - Path Review () [facility]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 12/12/2024 3:47 AM EDT 12/12/2024 4:40 AM EDT us Venkatesh Stephen MD LAB BLOOD ORDERABLES Final Resul t [facility] [address] [phone] * (ABNORMAL) CBC with automated diff (12/12/2024 3:47 AM EDT) WBC 1.4(LL) 4.0 - 10.0 K/ L 12/12/2024 6:07 AM EDT [facility] RBC 2.39(L) 3.93 - 5.22 M/ L 12/12/2024 6:07 AM EDT [facility] Hemoglobin 7.3(L) 11.2 - 15.7 GM/DL 12/12/2024 6:07 AM EDT [facility] Hematocrit 23.2(L) 34.1 - 44.9 % 12/12/2024 6:07 AM EDT [facility] MCV 97(H) 79 - 95 fL 12/12/2024 6:07 AM EDT [facility] MCH 30.5 25.6 - 32.2 pg 12/12/2024 6:07 AM EDT [facility] MCHC 31.5(L) 32.2 - 35.5 GM/DL 12/12/2024 6:07 AM EDT [facility] RDW 16.7(H) 11.7 - 14.4 % 12/12/2024 6:07 AM EDT [facility] Platelets 43(L) 140 - 375 K/CU MM 12/12/2024 6:07 AM EDT [facility] MPV 11.8 9.4 - 12.3 fL 12/12/2024 6:07 AM EDT [facility] % Neutros 57 34 - 71 % 12/12/2024 6:07 AM EDT [facility] % Lymphs 29 19 - 52 % 12/12/2024 6:07 AM EDT [facility] % Monos 13 5 - 13 % 12/12/2024 6:07 AM EDT [facility] % Eos 1 1 - 6 % 12/12/2024 6:07 AM EDT [facility] % Baso 0 0 - 1 % 12/12/2024 6:07 AM EDT [facility] NRBC Absolute <0.01 0 - 0.012 K/ul 12/12/2024 6:07 AM EDT [facility] # Neutros 0.80(L) 1.56 - 6.13 K/ L 12/12/2024 6:07 AM EDT [facility] # Lymphs 0.41(L) 1.18 - 3.74 K/ L 12/12/2024 6:07 AM EDT [facility] # Monos 0.18(L) 0.24 - 0.86 K/ L 12/12/2024 6:07 AM EDT [facility] # Eos <0.03(L) 0.04 - 0.36 K/ L 12/12/2024 6:07 AM EDT [facility] # Baso <0.03 0.01 - 0.08 K/ L 12/12/2024 6:07 AM EDT [facility] Immature Granulocytes-Re lative 0.70(H) 0.01 - 0.43 % 12/12/2024 6:07 AM EDT [facility] # IG <0.03 0.00 - 0.03 K/uL 12/12/2024 6:07 AM EDT [facility] Blood Venipuncture / Unknown 12/12/2024 3:47 AM EDT 12/12/2024 4:40 AM EDT Narrative [facility] - 12/12/2024 6:07 AM EDT When [...] Flag noted Atypical Lymph flag noted us Irfan Zafar MD LAB BLOOD ORDERABLES Final Resul t [facility] [address] [place] [address], [facility] [phone] * (ABNORMAL) Basic Metabolic Panel (12/12/2024 3:47 AM EDT) Sodium 144 136 - 145 meq/L 12/12/2024 5:16 AM EDT [facility] Potassium 3.4 3.4 - 5.1 meq/L 12/12/2024 5:16 AM EDT [facility] CO2 26 22 - 29 meq/L 12/12/2024 5:16 AM EDT [facility] Chloride 110 98 - 112 meq/L 12/12/2024 5:16 AM EDT [facility] Glucose 140(H) 82 - 115 mg/dL 12/12/2024 5:16 AM EDT [facility] BUN 70.7(H) 9.8 - 20.1 mg/dL 12/12/2024 5:16 AM EDT [facility] Creatinine 2.28(H) 0.57 - 1.11 mg/dL 12/12/2024 5:16 AM EDT [facility] BUN/Creatinine 31(H) 8 - 20 12/12/2024 5:16 AM EDT [facility] Calcium 8.3(L) 8.4 - 10.2 mg/dL 12/12/2024 5:16 AM EDT [facility] Anion Gap 11 4 - 12 12/12/2024 5:16 AM EDT [facility] eGFR (mL/min/1.73m2) 24(L) >=60 mL/min/1.7 3m2 12/12/2024 5:16 AM EDT [facility] Osmolality Calc 309.9 mOsm/kg 5:16 AM EDT [facility] Blood Venipuncture / Unknown 12/12/2024 3:47 AM EDT 12/12/2024 4:41 AM EDT Venkatesh Stephen MD LAB BLOOD ORDERABLES Final Resul t Performing Organization Address [facility] Co de Phone Number [facility] [address] [phone] * (ABNORMAL) Glucose, Nova Meter (12/11/2024 7:32 PM EDT) POC-GLUCOSE 159(H) 70 - 110 mg/dL 12/11/2024 7:33 PM EDT [facility] Comment: In the event of poor peripheral blood flow, venous or arterial blood should be used due to the potential of erroneous results. Notified Nurse RBV Fishing Rod Trimmer [phone] 12/11/2024 7:33 PM EDT [facility] Blood WHOLE BLOOD / Unknown 12/11/2024 7:32 PM EDT 12/11/2024 7:33 PM EDT [facility] - 12/11/2024 7:33 PM EDT Fishing Rod Trimmer ID is - [id number] us David Coffman PA-C POINT OF CARE TEST ORDERABLES Final Result Performing Organization Address [facility] de Phone Number [facility] [address] [phone] * (ABNORMAL) Glucose, Nova Meter (12/11/2024 4:18 PM EDT) POC-GLUCOSE 156(H) 70 - 110 mg/dL 12/11/2024 4:19 PM EDT [facility] Comment: In the event of poor peripheral blood flow, venous or arterial blood should be used due to the potential of erroneous results. Notified Nurse RBV Fishing [employer] Trimmer [phone] 12/11/2024 4:19 PM EDT [facility] Blood WHOLE BLOOD / Unknown 12/11/2024 4:18 PM EDT 12/11/2024 4:19 PM EDT [facility] - 12/11/2024 4:19 PM EDT Fishing [employer] Trimmer ID is - [id number] David Coffman PA-C POINT OF CARE TEST ORDERABLES Final Result Performing Organization Address [facility] Co de Phone Number [facility] [address] [phone] * (ABNORMAL) Glucose, Nova Meter (12/11/2024 10:43 AM EDT) [facility] POC-GLUCOSE 254(H) 70 - 110 mg/dL 12/11/2024 10:45 AM EDT [facility] Comment: In the event of poor peripheral blood flow, venous or arterial blood should be used due to the potential of erroneous results. Notified Nurse RBV Fishing [employer] Trimmer [phone] 12/11/2024 10:45 AM EDT [facility] Blood WHOLE BLOOD / Unknown 12/11/2024 10:43 AM EDT 12/11/2024 10:45 AM EDT Narrative [facility] - 12/11/2024 10:45 AM EDT Fishing [employer] Trimmer ID is - [id number] [facility] Andry Coffman PA-C POINT OF CARE TEST ORDERABLES Final Result Performing Organization Address [facility] Co de Phone Number [facility] [address] [phone] * ECG 12 lead (12/11/2024 10:29 AM EDT) [facility] VENTRICULAR RATE EKG/MIN 85 BPM GE MUSE ATRIAL RATE (MCT) 85 BPM GE MUSE NM Interval 142 ms GE MUSE QRS-INTERVAL (MSEC) 92 ms GE MUSE QT Interval 400 ms GE MUSE QTC Interval 476 ms GE MUSE P Aroda 34 degrees GE MUSE R AXIS (MCT) -10 degrees GE MUSE T Wave Aroda 57 degrees GE MUSE [place] Diagnosis Normal sinus rhythm Minimal voltage criteria [...] ECG ORDERABLES Final Result Performing Organization Address City/[facility]/ZIP Co de Phone Number [facility]UARE[facility] * (ABNORMAL) Glucose, Nova Meter (12/11/2024 5:15 AM EDT) POC-GLUCOSE 143(H) 70 - 110 mg/dL 12/11/2024 5:16 AM EDT [facility] Comment: In the event of poor peripheral blood flow, venous or arterial blood should be used due to the potential of erroneous results. Notified Nurse RBV Fishing [employer] Trimmer [phone] 12/11/2024 5:16 AM EDT [facility] Blood WHOLE BLOOD / Unknown 12/11/2024 5:15 AM EDT 12/11/2024 5:16 AM EDT Narrative [facility] - 12/11/2024 5:16 AM EDT Fishing [employer] Trimmer ID is - [id number] us Venkatesh Stephen MD POINT OF CARE TEST ORDERABLES Fi nal Result Performing Organization Address [facility]/ZIP Co de Phone Number [facility] [address] [phone] * (ABNORMAL) Basic Metabolic Panel (12/11/2024 3:39 AM EDT) Pathologist [facility] Sodium 146(H) 136 - 145 meq/L 12/11/2024 4:25 AM EDT [facility] Potassium 3.7 3.4 - 5.1 meq/L 12/11/2024 4:25 AM EDT [facility] CO2 26 22 - 29 meq/L 12/11/2024 4:25 AM EDT [facility] Chloride 114(H) 98 - 112 meq/L 12/11/2024 4:25 AM EDT [facility] Glucose 154(H) 82 - 115 mg/dL 12/11/2024 4:25 AM EDT [facility] BUN 74.9(H) 9.8 - 20.1 mg/dL 12/11/2024 4:25 AM EDT [facility] Creatinine 2.61(H) 0.57 - 1.11 mg/dL 12/11/2024 4:25 AM EDT [facility] BUN/Creatinine 29(H) 8 - 20 12/11/2024 4:25 AM EDT [facility] Calcium 8.2(L) 8.4 - 10.2 mg/dL 12/11/2024 4:25 AM EDT [facility] Anion Gap 10 4 - 12 12/11/2024 4:25 AM EDT [facility] eGFR (mL/min/1.73m2) 20(L) >=60 mL/min/1.7 3m2 12/11/2024 4:25 AM EDT [facility] Osmolality Calc 315.9 mOsm/kg 4:25 AM EDT [facility] Blood Venipuncture / Unknown 12/11/2024 3:39 AM EDT 12/11/2024 3:59 AM EDT us Venkatesh Stephen MD LAB BLOOD ORDERABLES Final Resul t Performing Organization Address City/State/[facility] Co de Phone Number [facility] [address] [phone] * (ABNORMAL) CBC with automated diff (12/11/2024 3:36 AM EDT) WBC 1.7(LL) 4.0 - 10.0 K/ L 12/11/2024 4:19 AM EDT [facility] RBC 2.50(L) 3.93 - 5.22 M/ L 12/11/2024 4:19 AM EDT [facility] Hemoglobin 7.7(L) 11.2 - 15.7 GM/DL 12/11/2024 4:19 AM EDT [facility] Hematocrit 24.4(L) 34.1 - 44.9 % 12/11/2024 4:19 AM EDT [facility] MCV 98(H) 79 - 95 fL 12/11/2024 4:19 AM EDT [facility] MCH 30.8 25.6 - 32.2 pg 12/11/2024 4:19 AM EDT [facility] MCHC 31.6(L) 32.2 - 35.5 GM/DL 12/11/2024 4:19 AM EDT [facility] RDW 16.9(H) 11.7 - 14.4 % 12/11/2024 4:19 AM EDT [facility] Platelets 50(L) 140 - 375 K/CU MM 12/11/2024 4:19 AM EDT [facility] MPV 11.7 9.4 - 12.3 fL 12/11/2024 4:19 AM EDT [facility] % Neutros 58 34 - 71 % 12/11/2024 4:19 AM EDT [facility] % Lymphs 27 19 - 52 % 12/11/2024 4:19 AM EDT [facility] % Monos 15(H) 5 - 13 % 12/11/2024 4:19 AM EDT [facility] % Eos 0(L) 1 - 6 % 12/11/2024 4:19 AM EDT [facility] % Baso 1 0 - 1 % 12/11/2024 4:19 AM EDT [facility] NRBC Absolute <0.01 0 - 0.012 K/ul 12/11/2024 4:19 AM EDT [facility] # Neutros 1.00(L) 1.56 - 6.13 K/ L 12/11/2024 4:19 AM EDT [facility] # Lymphs 0.46(L) 1.18 - 3.74 K/ L 12/11/2024 4:19 AM EDT [facility] # Monos 0.26 0.24 - 0.86 K/ L 12/11/2024 4:19 AM EDT [facility] # Eos <0.03(L) 0.04 - 0.36 K/ L 12/11/2024 4:19 AM EDT [facility] # Baso <0.03 0.01 - 0.08 K/ L 12/11/2024 4:19 AM EDT [facility] Immature Granulocytes-Re lative 0.00(L) 0.01 - 0.43 % 12/11/2024 4:19 AM EDT [facility] # IG <0.03 0.00 - 0.03 K/uL 12/11/2024 4:19 AM EDT [facility] Blood Venipuncture / Unknown 12/11/2024 3:36 AM EDT 12/11/2024 3:59 AM EDT Narrative [facility] - 12/11/2024 4:19 AM EDT When [...] Blast? Flag noted Atypical Lymph flag noted Venkatesh Stephen MD LAB BLOOD ORDERABLES Final Resul t Performing Organization Address [facility] Co hi Phone Number [facility] [address] [phone] * (ABNORMAL) Glucose, Nova Meter (12/10/2024 7:38 PM EDT) POC-GLUCOSE 201(H) 70 - 110 mg/dL 12/10/2024 7:39 PM EDT [facility] Comment: In the event of poor peripheral blood flow, venous or arterial blood should be used due to the potential of erroneous results. Notified Nurse [facility] [employer] [id number] 12/10/2024 7:39 PM EDT [facility] Blood WHOLE BLOOD / Unknown 12/10/2024 7:38 PM EDT 12/10/2024 7:39 PM EDT Narrative [facility] - 12/10/2024 7:39 PM EDT [employer] ID is - [id number] Venkatesh Stephen MD POINT OF CARE TEST ORDERABLES Fi nal Result Performing Organization Address [facility] Co de Phone Number [facility] [address] [phone] * (ABNORMAL) Glucose, Nova Meter (12/10/2024 6:32 PM EDT) POC-GLUCOSE 235(H) 70 - 110 mg/dL 12/10/2024 6:34 PM EDT [facility] Comment: In the event of poor peripheral blood flow, venous or arterial blood should be used due to the potential of erroneous results. Notified Nurse [employer] [phone] 12/10/2024 6:34 PM EDT [facility] Blood WHOLE BLOOD / Unknown 12/10/2024 6:32 PM EDT 12/10/2024 6:34 PM EDT Narrative [facility] - 12/10/2024 6:34 PM EDT [employer] ID is - [id number] Venkatesh Stephen MD POINT OF CARE TEST ORDERABLES Fi nal Result Performing Organization Address [facility] Phone Number [facility] [address] [phone] * (ABNORMAL) Glucose, Nova Meter (12/10/2024 4:56 PM EDT) POC-GLUCOSE 195(H) 70 - 110 mg/dL 12/10/2024 4:58 PM EDT [facility] Comment: In the event of poor peripheral blood flow, venous or arterial blood should be used due to the potential of erroneous results. Notified Nurse [employer] [phone] 12/10/2024 4:58 PM EDT [facility] Blood WHOLE BLOOD / Unknown 12/10/2024 4:56 PM EDT 12/10/2024 4:58 PM EDT Narrative [facility] - 12/10/2024 4:58 PM EDT [employer] Trimmer ID is - [id number] us Venkatesh Stephen MD POINT OF CARE TEST ORDERABLES Fi nal Result Performing Organization Address [facility] Co de Phone Number [facility] [address] [phone] * US paracentesis (12/10/2024 11:37 AM EDT) [...] Ascites. ATTENDING PHYSICIAN: Dr. Haseeb Gil PHYSICIAN MOBILE MANAGER: Sujit Blackman PA-C FINDINGS: After informed consent [...] Ascites. ATTENDING PHYSICIAN: Dr. Haseeb Gil PHYSICIAN MOBILE MANAGER: Sujit Blackman PA-C FINDINGS: After informed consent [...] by Dr. Haseeb Gil. Transcribed by Sujit Leugers, PA-C. us Mary Carmen Mcfadden MD IMG US ORDERABLES Final Result * ECG 12 lead (12/10/2024 10:07 AM EDT) Pathologist [facility] VENTRICULAR RATE EKG/MIN 90 BPM GE MUSE ATRIAL RATE (MCT) 90 BPM GE MUSE NM Interval 138 ms GE MUSE QRS-INTERVAL (MSEC) 90 ms GE MUSE QT Interval 396 ms GE MUSE QTC Interval 484 ms GE MUSE P Aroda 31 degrees GE MUSE R AXIS (MCT) -10 degrees GE MUSE T Wave Aroda 37 degrees GE MUSE [place] Diagnosis Normal sinus rhythm Leftward axis Abnormal ECG When compared with ECG of 09-DEC-2024 12:33, No significant change was found Confirmed by Aleksandr ROBIN STEVE ([id number]) on 12/12/2024 1:22:56 AM GE MUSE 12/10/2024 10:0 7 AM EDT 12/12/2024 1:22 AM EDT Deysi Foss MD ECG ORDERABLES Final Result Performing Organization Address [facility]/ZIP Co de Phone Number GE MUSE * Magnesium (12/10/2024 9:53 AM EDT) [facility] Magnesium 2.3 1.6 - 2.6 mg/dL 12/10/2024 11:02 AM EDT [facility] Blood Venipuncture / Unknown 12/10/2024 9:53 AM EDT 12/10/2024 10:39 AM EDT Deysi Foss MD LAB BLOOD ORDERABLES Final Resul t [facility] [address] [phone] * ALT (SGPT) (12/10/2024 9:53 AM EDT) [facility] ALT 12 <=34 U/L 12/10/2024 11:02 AM EDT [facility] Comment: ALT2 reagent used for testing [...] ORDERABLES Final Resul t Performing Organization Address [facility] Co de Phone Number [facility] [address] [phone] * (ABNORMAL) AST (SGOT) (12/10/2024 9:53 AM EDT) AST 39(H) 11 - 34 U/L 12/10/2024 11:02 AM EDT [facility] Comment: AST2 reagent used for testing does not contain P5P supplementation and therefore may miss AST elevations in patients with B6 deficiency. This population may be as high as 10% in the [place], with risk factors including malabsorption, drug interactions, and alcoholic hepatitis. [employer] has become aware of sulfasalazine and sulfapyridine [...] ORDERABLES Final Resul t Performing Organization Address City/[facility]/ZIP Co de Phone Number [facility] [address] [phone] * XR chest AP portable (12/10/2024 9:10 [...] 7.35 - 7.45 12/10/2024 6:51 AM EDT [facility] pCO2, Arterial 49(H) 35 - 45 mm Hg 12/10/2024 6:51 AM EDT [facility] pO2, Arterial 119(H) 80 - 100 mm Hg 12/10/2024 6:51 AM EDT [facility] HCO3, Arterial 24 20 - 26 mmol/L 12/10/2024 6:51 AM EDT [facility] Base Excess, Arterial -2.4(L) -2.0 - 2.0 mmol/L 12/10/2024 6:51 AM EDT [facility] O2 Sat, Arterial >99.2 95.0 - 100.0 % 12/10/2024 6:51 AM EDT [facility] Comment:notified at read-anny k verification CTO2 ARTERIAL 11.9 mmol/L 12/10/2024 6:51 AM EDT [facility] THB ARTERIAL 8.5(L) 12.0 - 18.0 g/dL 12/10/2024 6:51 AM EDT [facility] COLLECTION SITE Left Radial 12/10/2024 6:51 AM EDT [facility] Arterial Puncture Yes 12/10/2024 6:51 AM EDT [facility] Blood Gas O2 Delivery Device Cannula 12/10/2024 6:[facility] O[facility] Flow Rate 4 12/11/19 6:51 AM EDT [facility] Blood Gas PT Temperature C 37.0 12/10/2024 6:51 AM EDT [facility] Sen's Test Acceptable 12/10/2024 6:51 AM EDT [facility] ABG Number of Draw Attempts 1 12/10/2024 6:51 AM EDT [facility] FIO2 12/10/2024 6:51 AM EDT [facility] Blood Gas Temperature Corrected Results No No 12/10/2024 6:51 AM T [facility] Blood, Arterial Collection / Unknown 12/10/2024 6:42 AM EDT 12/10/2024 6:51 AM EDT us Blanka Malagon MD LAB BLOOD ORDERABLES Final Re sult [facility] [address] [phone] * (ABNORMAL) Glucose, Nova Meter (12/10/2024 5:52 AM EDT) POC-GLUCOSE 162(H) 70 - 110 mg/dL 12/10/2024 5:53 AM EDT [facility] Comment: In the event of poor peripheral blood flow, venous or arterial blood should be used due to the potential of erroneous results. Notified Nurse RBV [employer] [id number] 12/10/2024 5:53 AM EDT [facility] Blood WHOLE BLOOD / Unknown 12/10/2024 5:52 AM EDT 12/10/2024 5:53 AM EDT Narrative [facility] - 12/10/2024 5:53 AM EDT F[employer] Trimmer ID is - [id number] Mary Carmen Mcfadden MD POINT OF CARE TEST ORDERABLES F inal Result Performing Organization Address [facility] Co de Phone Number [facility] [address] [phone] * (ABNORMAL) Glucose, Nova Meter (12/09/2024 7:30 PM EDT) POC-GLUCOSE 158(H) 70 - 110 mg/dL 12/09/2024 7:31 PM EDT [facility] Comment: In the event of poor peripheral blood flow, venous or arterial blood should be used due to the potential of erroneous results. Notified Nurse RBV [employer] Trimmer [id number] 12/09/2024 7:31 PM EDT [facility] Blood WHOLE BLOOD / Unknown 12/09/2024 7:30 PM EDT 12/09/2024 7:31 PM EDT Narrative [facility] - 12/09/2024 7:31 PM EDT F[employer] Tr[employer] ID is - [id number] MaryC armen Mcfadden MD POINT OF CARE TEST ORDERABLES F inal Result [facility] [address] [place] [address], [facility] [phone] * (ABNORMAL) Glucose, Nova Meter (12/09/2024 4:23 PM EDT) POC-GLUCOSE 173(H) 70 - 110 mg/dL 12/09/2024 4:24 PM EDT [facility] Comment: In the event of poor peripheral blood flow, venous or arterial blood should be used due to the potential of erroneous results. Notified Nurse RBV [employer] Trimmer [id number] 12/09/2024 4:24 PM EDT [facility] Blood WHOLE BLOOD / Unknown 12/09/2024 4:23 PM EDT 12/09/2024 4:24 PM EDT Narrative [facility] - 12/09/2024 4:24 PM EDT F[employer] Trimmer ID is - [id number] us Mary Carmen Mcfadden MD POINT OF CARE TEST ORDERABLES F inal Result Performing Organization Address City/[facility]/ZIP Co de Phone Number [facility] [address] [phone] * ECG 12 lead (12/09/2024 12:33 PM EDT) VENTRICULAR RATE EKG/MIN 91 BPM GE MUSE ATRIAL RATE (MCT) 91 BPM GE MUSE NM Interval 140 ms GE MUSE QRS-INTERVAL (MSEC) 88 ms GE MUSE QT Interval 386 ms GE MUSE QTC Interval 474 ms GE MUSE P Aroda 44 degrees GE MUSE R AXIS (MCT) -3 degrees GE MUSE T Wave Aroda 16 degrees GE MUSE [place] Diagnosis Normal sinus rhythm Minimal voltage criteria for LVH, may be normal variant Septal infarct (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 ([id number]) on 12/09/2024 6:05:19 PM GE MUSE 12/09/2024 12:3 3 PM EDT 12/09/2024 6:05 PM EDT us Deysi Foss MD ECG ORDERABLES Final Result Performing Organization Address City/[facility]/ZIP Co de Phone Number [employer] * (ABNORMAL) Glucose, Nova Meter (12/09/2024 11:17 AM EDT) POC-GLUCOSE 173(H) 70 - 110 mg/dL 12/09/2024 11:18 AM EDT [facility] Comment: In the event of poor peripheral blood flow, venous or arterial blood should be used due to the potential of erroneous results. Notified Nurse RBV [employer] Trimmer [id number] 12/09/2024 11:18 AM EDT [facility] Blood WHOLE BLOOD / Unknown 12/09/2024 11:17 AM EDT 12/09/2024 11:18 AM EDT Narrative [facility] - 12/09/2024 11:18 AM EDT F[employer] Trimmer ID is - [id number] Mary Carmen Mcfadden MD POINT OF CARE TEST ORDERABLES F inal Result [facility] [address] [phone] * XR chest AP portable (12/09/2024 7:09 [...] 7.35 - 7.45 12/09/2024 6:52 AM EDT [facility] pCO2, Arterial 51(H) 35 - 45 mm Hg 12/09/2024 6:52 AM EDT [facility] pO2, Arterial 157(H) 80 - 100 mm Hg 12/09/2024 6:52 AM EDT [facility] HCO3, Arterial 24 20 - 26 mmol/L 12/09/2024 6:52 AM EDT [facility] Base Excess, Arterial -2.6(L) -2.0 - 2.0 mmol/L 12/09/2024 6:52 AM EDT [facility] O2 Sat, Arterial >99.2 95.0 - 100.0 % 12/09/2024 6:52 AM EDT [facility] Comment:[id number] notified PAULINO COFFMAN RN at 12/09/2024 06:51 read-back verification CTO2 ARTERIAL 12.3 mmol/L 12/09/2024 6:52 AM EDT [facility] THB ARTERIAL 8.7(L) 12.0 - 18.0 g/dL 12/09/2024 6:52 AM EDT [facility] COLLECTION SITE Left Radial 12/09/2024 6:52 AM EDT [facility] Arterial Puncture Yes 12/09/2024 6:52 AM EDT [facility] Blood Gas O2 Delivery Device Cannula 12/09/2024 6:52 AM EDT [facility] Oxygen Flow Rate 4 12/10/19 6:52 AM EDT [facility] Blood Gas PT Temperature C 37.0 12/09/2024 6:52 AM EDT [facility] Sen's Test Acceptable 12/09/2024 6:52 AM EDT [facility] Critical Values Notification Critical Blood gas called to DAYANARA MILES . [place] [id number] and confirmed on 12/09/2024 06:51 12/09/2024 6:52 AM EDT [facility] ABG Number of Draw Attempts 1 12/09/2024 6:52 AM EDT [facility] FIO2 12/09/2024 6:52 AM EDT [facility] Blood Gas Temperature Corrected Results No No 12/09/2024 6:52 AM EDT [facility] Blood, Arterial ENTIRE LEFT UPPER ARM / Unknown 12/09/2024 6:37 AM EDT 12/09/2024 6:52 AM EDT us Blanka Malagon MD LAB BLOOD ORDERABLES Final Re sult Performing Organization Address [facility]/ZIP Co de Phone Number [facility] [address] [phone] * (ABNORMAL) Glucose, Nova Meter (12/09/2024 5:45 AM EDT) [facility] POC-GLUCOSE 148(H) 70 - 110 mg/dL 12/09/2024 5:46 AM EDT [facility] Comment: In the event of poor peripheral blood flow, venous or arterial blood should be used due to the potential of erroneous results. Notified Nurse RBV [employer] [phone] 12/09/2024 5:46 AM EDT [facility] Blood WHOLE BLOOD / Unknown 12/09/2024 5:45 AM EDT 12/09/2024 5:46 AM EDT Narrative [facility] - 12/09/2024 5:46 AM EDT F[employer] Trimmer ID is - [id number] us Mary Carmen Mcfadden MD POINT OF CARE TEST ORDERABLES F inal Result Performing Organization Address [facility]/ZIP Co de Phone Number [facility] [address] [phone] * (ABNORMAL) CBC - Hemogram (SJ-BKR) (12/09/2024 3:38 AM EDT) WBC 2.4(L) 4.0 - 10.0 K/ L 12/09/2024 3:59 AM EDT [facility] RBC 2.83(L) 3.93 - 5.22 M/ L 12/09/2024 3:59 AM EDT [facility] Hemoglobin 8.5(L) 11.2 - 15.7 GM/DL 12/09/2024 3:59 AM EDT [facility] Hematocrit 28.0(L) 34.1 - 44.9 % 12/09/2024 3:59 AM EDT [facility] MCV 99(H) 79 - 95 fL 12/09/2024 3:59 AM EDT [facility] MCH 30.0 25.6 - 32.2 pg 12/09/2024 3:59 AM EDT [facility] MCHC 30.4(L) 32.2 - 35.5 GM/DL 12/09/2024 3:59 AM EDT [facility] RDW 17.2(H) 11.7 - 14.4 % 12/09/2024 3:59 AM EDT [facility] Platelets 55(L) 140 - 375 K/CU MM 12/09/2024 3:59 AM EDT [facility] MPV 11.5 9.4 - 12.3 fL 12/09/2024 3:59 AM EDT [facility] Blood Venipuncture / Unknown 12/09/2024 3:38 AM EDT 12/09/2024 3:45 AM EDT us Mary Carmen Mcfadden MD LAB BLOOD ORDERABLES Final Resu lt [facility] [address] [phone] * (ABNORMAL) Basic Metabolic Panel (12/09/2024 3:38 AM EDT) Sodium 148(H) 136 - 145 meq/L 12/09/2024 4:07 AM EDT [facility] Potassium 3.6 3.4 - 5.1 meq/L 12/09/2024 4:07 AM EDT [facility] CO2 23 22 - 29 meq/L 12/09/2024 4:07 AM EDT [facility] Chloride 116(H) 98 - 112 meq/L 12/09/2024 4:07 AM EDT [facility] Glucose 146(H) 82 - 115 mg/dL 12/09/2024 4:07 AM EDT [facility] BUN 77.3(H) 9.8 - 20.1 mg/dL 12/09/2024 4:07 AM EDT [facility] Creatinine 2.82(H) 0.57 - 1.11 mg/dL 12/09/2024 4:07 AM EDT [facility] BUN/Creatinine 27(H) 8 - 20 12/09/2024 4:07 AM EDT [facility] Calcium 8.7 8.4 - 10.2 mg/dL 12/09/2024 4:07 AM EDT [facility] Anion Gap 13(H) 4 - 12 12/09/2024 4:07 AM EDT [facility] eGFR (mL/min/1.73m2) 18(L) >=60 mL/min/1.7 3m2 12/09/2024 4:07 AM EDT [facility] Osmolality Calc 320.0 mOsm/kg 4:07 AM T [facility] Blood Venipuncture / Unknown 12/09/2024 3:38 AM EDT 12/09/2024 3:45 AM EDT us Mary Carmen Mcfadden MD LAB BLOOD ORDERABLES Final Resu lt [facility] [address] [place] [address], [facility] [phone] * (ABNORMAL) Glucose, Nova Meter (12/08/2024 8:08 PM EDT) POC-GLUCOSE 172(H) 70 - 110 mg/dL 12/08/2024 8:08 PM EDT [facility] Comment: In the event of poor peripheral blood flow, venous or arterial blood should be used due to the potential of erroneous results. Notified Nurse RBV [employer] Trimmer [phone] 12/08/2024 8:08 PM EDT [facility] Blood WHOLE BLOOD / Unknown 12/08/2024 8:08 PM EDT 12/08/2024 8:08 PM EDT Narrative [facility] - 12/08/2024 8:08 PM EDT F[employer] Tr[employer] ID is - [id number] Mary Carmen Mcfadden MD POINT OF CARE TEST ORDERABLES F inal Result [facility] [address] [phone] * (ABNORMAL) Glucose, Nova Meter (12/08/2024 3:34 PM EDT) POC-GLUCOSE 159(H) 70 - 110 mg/dL 12/08/2024 3:36 PM EDT [facility] Comment: In the event of poor peripheral blood flow, venous or arterial blood should be used due to the potential of erroneous results. Notified Nurse RBV [employer] Trimmer [id number] 12/08/2024 3:36 PM EDT [facility] Blood WHOLE BLOOD / Unknown 12/08/2024 3:34 PM EDT 12/08/2024 3:36 PM EDT Narrative [facility] - 12/08/2024 3:36 PM EDT F[employer] Tr[employer] ID is - [id number] us Mary Carmen Mcfadden MD POINT OF CARE TEST ORDERABLES F inal Result [facility] [address] [phone] * (ABNORMAL) Glucose, Nova Meter (12/08/2024 10:57 AM EDT) POC-GLUCOSE 191(H) 70 - 110 mg/dL 12/08/2024 10:59 AM EDT [facility] Comment: In the event of poor peripheral blood flow, venous or arterial blood should be used due to the potential of erroneous results. Protocols Followed Notified Nurse RBV Fishing [employer] Trimmer [phone] 12/08/2024 10:59 AM EDT [facility] Blood WHOLE BLOOD / Unknown 12/08/2024 10:57 AM EDT 12/08/2024 10:59 AM EDT Narrative [facility] - 12/08/2024 10:59 AM EDT F[employer] Tr[employer] ID is - [id number] us Mary Carmen Mcfadden MD POINT OF CARE TEST ORDERABLES F inal Result Performing Organization Address [facility] Co de Phone Number [facility] [address] [phone] * ECG 12 lead (12/08/2024 10:55 AM EDT) VENTRICULAR RATE EKG/MIN 92 BPM GE MUSE ATRIAL RATE (MCT) 92 BPM GE MUSE NM Interval 138 ms GE MUSE QRS-INTERVAL (MSEC) 94 ms GE MUSE QT Interval 354 ms GE MUSE QTC Interval 437 ms GE MUSE P Aroda 30 degrees GE MUSE R AXIS (MCT) -11 degrees GE MUSE T Wave Aroda 37 degrees GE MUSE [place] Diagnosis Normal sinus rhythm Minimal voltage criteria for LVH, may be normal variant Septal infarct , age undetermined Confirmed by DEYSI FOSS M.D. ([id number]) on 12/08/2024 4:27:47 PM GE MUSE 12/08/2024 10:5 5 AM EDT 12/08/2024 4:27 PM EDT us Deysi Foss MD ECG ORDERABLES Final Result Performing Organization Address City/[facility]/ZIP Co de Phone Number [employer] * (ABNORMAL) Blood gas, arterial (12/08/2024 7:13 AM EDT) pH, Arterial 7.26(L) 7.35 - 7.45 12/08/2024 7:31 AM EDT [facility] pCO2, Arterial 54(H) 35 - 45 mm Hg 12/08/2024 7:31 AM EDT [facility] pO2, Arterial 80 80 - 100 mm Hg 12/08/2024 7:31 AM EDT [facility] HCO3, Arterial 24 20 - 26 mmol/L 12/08/2024 7:31 AM EDT [facility] Base Excess, Arterial -2.9(L) -2.0 - 2.0 mmol/L 12/08/2024 7:31 AM EDT [facility] O2 Sat, Arterial 96.7 95.0 - 100.0 % 12/08/2024 7:31 AM EDT [facility] CTO2 ARTERIAL 11.8 mmol/L 12/08/2024 7:31 AM EDT [facility] THB ARTERIAL 8.8(L) 12.0 - 18.0 g/dL 12/08/2024 7:31 AM EDT [facility] COLLECTION SITE Right Brachial 12/08/2024 7:31 AM EDT [facility] Arterial Puncture Yes 12/08/2024 7:31 AM EDT [facility] Blood Gas O2 Delivery Device Cannula 12/08/2024 7:31 AM EDT [facility] Oxygen Flow Rate 4 12/09/19 7:31 AM EDT [facility] Blood Gas PT Temperature C 37.0 12/08/2024 7:31 AM EDT [facility] Sen's Test Not Applicable 12/09/19 7:31 AM EDT [facility] Critical Values Notification Critical Blood gas called to KNOWN CONDITION . Results acknowledged/r ead back to [id number] and confirmed on 12/08/2024 07:30 12/08/2024 7:31 AM EDT [facility] ABG Number of Draw Attempts 1 12/08/2024 7:31 AM EDT [facility] FIO2 12/08/2024 7:31 AM EDT [facility] Blood Gas Temperature Corrected Results No No 12/08/2024 7:31 AM EDT [facility] Blood, Arterial 12/08/2024 7 :13 AM EDT 12/08/2024 7:31 AM EDT us Yasser Zohary MD LAB BLOOD ORDERABLES Final Resu lt Performing Organization Address [facility]/State/ZIP Co de Phone Number [facility] [address] [phone] * (ABNORMAL) Glucose, Nova Meter (12/08/2024 6:08 AM EDT) POC-GLUCOSE 136(H) 70 - 110 mg/dL 12/08/2024 6:09 AM EDT [facility] Comment: In the event of poor peripheral blood flow, venous or arterial blood should be used due to the potential of erroneous results. Protocols Followed Notified Nurse RBV Fishing [employer] Trimmer [phone] 12/08/2024 6:09 AM EDT [facility] Blood WHOLE BLOOD / Unknown 12/08/2024 6:08 AM EDT 12/08/2024 6:09 AM EDT Narrative [facility] - 12/08/2024 6:09 AM EDT [employer] Tr[employer] ID is - [id number] Mary Carmen Mcfadden MD POINT OF CARE TEST ORDERABLES F inal Result Performing Organization Address [facility]/ZIP Co de Phone Number [facility] [address] [phone] * (ABNORMAL) CBC - Hemogram (SJ-BKR) (12/08/2024 4:10 AM EDT) WBC 3.1(L) 4.0 - 10.0 K/ L 12/08/2024 4:53 AM EDT [facility] RBC 2.84(L) 3.93 - 5.22 M/ L 12/08/2024 4:53 AM EDT [facility] Hemoglobin 8.7(L) 11.2 - 15.7 GM/DL 12/08/2024 4:53 AM EDT [facility] Hematocrit 28.2(L) 34.1 - 44.9 % 12/08/2024 4:53 AM EDT [facility] MCV 99(H) 79 - 95 fL 12/08/2024 4:53 AM EDT [facility] MCH 30.6 25.6 - 32.2 pg 12/08/2024 4:53 AM EDT [facility] MCHC 30.9(L) 32.2 - 35.5 GM/DL 12/08/2024 4:53 AM EDT [facility] RDW 17.4(H) 11.7 - 14.4 % 12/08/2024 4:53 AM EDT [facility] Platelets 54(L) 140 - 375 K/CU MM 12/08/2024 4:53 AM EDT [facility] MPV 11.2 9.4 - 12.3 fL 12/08/2024 4:53 AM EDT [facility] Blood Venipuncture / Unknown 12/08/2024 4:10 AM EDT 12/08/2024 4:37 AM EDT us Mary Carmen Mcfadden MD LAB BLOOD ORDERABLES Final Resu lt Performing Organization Address City/State/[facility] Co de Phone Number [facility] [address] [phone] * (ABNORMAL) Basic Metabolic Panel (12/08/2024 4:10 AM EDT) Sodium 149(H) 136 - 145 meq/L 12/08/2024 5:22 AM EDT [facility] Potassium 3.6 3.4 - 5.1 meq/L 12/08/2024 5:22 AM EDT [facility] CO2 23 22 - 29 meq/L 12/08/2024 5:22 AM EDT [facility] Chloride 116(H) 98 - 112 meq/L 12/08/2024 5:22 AM EDT [facility] Glucose 160(H) 82 - 115 mg/dL 12/08/2024 5:22 AM EDT [facility] BUN 76.4(H) 9.8 - 20.1 mg/dL 12/08/2024 5:22 AM EDT [facility] Creatinine 2.92(H) 0.57 - 1.11 mg/dL 12/08/2024 5:22 AM EDT [facility] BUN/Creatinine 26(H) 8 - 20 12/08/2024 5:22 AM EDT [facility] Calcium 8.7 8.4 - 10.2 mg/dL 12/08/2024 5:22 AM EDT [facility] Anion Gap 14(H) 4 - 12 12/08/2024 5:22 AM EDT [facility] eGFR (mL/min/1.73m2) 18(L) >=60 mL/min/1.7 3m2 12/08/2024 5:22 AM EDT [facility] Osmolality Calc 322.3 mOsm/kg 5:22 AM EDT [facility] Blood Venipuncture / Unknown 12/08/2024 4:10 AM EDT 12/08/2024 4:40 AM EDT Mary Carmen Mcfadden MD LAB BLOOD ORDERABLES Final Resu lt Performing Organization Address [facility] Co de Phone Number [facility] [address] [phone] * (ABNORMAL) Glucose, Nova Meter (12/07/2024 7:54 PM EDT) [facility] POC-GLUCOSE 164(H) 70 - 110 mg/dL 12/07/2024 7:55 PM EDT [facility] Comment: In the event of poor peripheral blood flow, venous or arterial blood should be used due to the potential of erroneous results. Protocols Followed Notified Nurse [facility] [employer] Tr[employer] [id number] 12/07/2024 7:55 PM EDT [facility] Blood WHOLE BLOOD / Unknown 12/07/2024 7:54 PM EDT 12/07/2024 7:55 PM EDT Narrative [facility] - 12/07/2024 7:55 PM EDT F[employer] Trimmer ID is - [id number] Mary Carmen Mcfadden MD POINT OF CARE TEST ORDERABLES F inal Result Performing Organization Address [facility] [facility] Co de Phone Number [facility] [address] [place] [address], [facility] [phone] * (ABNORMAL) ABG (12/07/2024 4:21 PM EDT) pH, Arterial 7.29(L) 7.35 - 7.45 12/07/2024 4:43 PM EDT [facility] pCO2, Arterial 50(H) 35 - 45 mm Hg 12/07/2024 4:43 PM EDT [facility] pO2, Arterial 179(H) 80 - 100 mm Hg 12/07/2024 4:43 PM EDT [facility] HCO3, Arterial 24 20 - 26 mmol/L 12/07/2024 4:43 PM EDT [facility] Base Excess, Arterial -2.3(L) -2.0 - 2.0 mmol/L 12/07/2024 4:43 PM EDT [facility] O2 Sat, Arterial >100.0(H) 95.0 - 100.0 % 12/07/2024 4:43 PM EDT [facility] Comment:[id number] notified MORRIS LORENZ RN at 12/07/2024 16:42 read-back verification CTO2 ARTERIAL 12.0 mmol/L 12/07/2024 4:43 PM EDT [facility] THB ARTERIAL 8.4(L) 12.0 - 18.0 g/dL 12/07/2024 4:43 PM EDT [facility] PaO2/FIO2 calculated 359.0 12/07/2024 4:43 PM EDT [facility] COLLECTION SITE Right Brachial 12/07/2024 4:43 PM EDT [facility] Arterial Puncture Yes 12/07/2024 4:43 PM EDT [facility] Blood Gas O2 Delivery Device NIV 12/07/2024 4:43 PM EDT [facility] Blood Gas PT Temperature C 37.0 12/07/2024 4:43 PM EDT [facility] Sen's Test Not Applicable 12/08/19 4:43 PM EDT [facility] Critical Values Notification Critical Blood gas called to SEB LORENZ RN . Results acknowledged/r ead back to [id number] and confirmed on 12/07/2024 16:42 12/07/2024 4:43 PM EDT [facility] ABG Number of Draw Attempts 2 12/07/2024 4:43 PM EDT [facility] Set Rate 16.0 12/07/2024 4:43 PM EDT [facility] IPAP 10 12/07/2024 4:43 PM EDT [facility] EPAP 6 12/07/2024 4:43 PM EDT [facility] FIO2 50.0 12/07/2024 4:43 PM EDT [facility] Blood Gas Temperature Corrected Results No No 12/07/2024 4:43 PM EDT [facility] Blood, Arterial 12/07/2024 4 :21 PM EDT 12/07/2024 4:43 PM EDT us Blanka Malgaon MD LAB BLOOD ORDERABLES Final Re sult Performing Organization Address [facility] Co de Phone Number [facility] [address] [phone] * (ABNORMAL) Glucose, Nova Meter (12/07/2024 3:39 PM EDT) [facility] POC-GLUCOSE 159(H) 70 - 110 mg/dL 12/07/2024 3:41 PM EDT [facility] Comment: In the event of poor peripheral blood flow, venous or arterial blood should be used due to the potential of erroneous results. Notified Nurse RBV Fishing Rod Trimmer [phone] 12/07/2024 3:41 PM EDT [facility] Blood WHOLE BLOOD / Unknown 12/07/2024 3:39 PM EDT 12/07/2024 3:41 PM EDT Narrative [facility] - 12/07/2024 3:41 PM EDT Fishing Rod Trimmer ID is - [id number] us Mary Carmen Mcfadden MD POINT OF CARE TEST ORDERABLES F inal Result Performing Organization Address [facility] Co de Phone Number [facility] [address] [phone] * XR chest AP portable (12/07/2024 2:25 [...] 7.35 - 7.45 12/07/2024 3:27 PM EDT [facility] pCO2, Arterial 50(H) 35 - 45 mm Hg 12/07/2024 3:27 PM EDT [facility] pO2, Arterial 58(L) 80 - 100 mm Hg 12/07/2024 3:27 PM EDT [facility] HCO3, Arterial 24 20 - 26 mmol/L 12/07/2024 3:27 PM EDT [facility] Base Excess, Arterial -3.3(L) -2.0 - 2.0 mmol/L 12/07/2024 3:27 PM EDT [facility] O2 Sat, Arterial 91.3(L) 95.0 - 100.0 % 12/07/2024 3:27 PM EDT [facility] CTO2 ARTERIAL 11.2 mmol/L 12/07/2024 3:27 PM EDT [facility] THB ARTERIAL 8.9(L) 12.0 - 18.0 g/dL 12/07/2024 3:27 PM EDT [facility] COLLECTION SITE Right Radial 12/07/2024 3:27 PM EDT [facility] Arterial Puncture Yes 12/07/2024 3:27 PM EDT [facility] Blood Gas O2 Delivery Device Cannula 12/07/2024 3:27 PM EDT [facility] Oxygen Flow Rate 2 12/07/2024 3:27 PM EDT [facility] Blood Gas PT Temperature C 37.0 12/07/2024 3:27 PM EDT [facility] Sen's Test Unacceptable 12/07/2024 3:27 PM EDT [facility] Vent Mode Other 12/07/2024 3:27 PM EDT [facility] Critical Values Notification Critical Blood gas called to DR MALAGON . [place] [id number] and confirmed on 12/07/2024 14:14 12/07/2024 3:27 PM EDT [facility] ABG Number of Draw Attempts 1 12/07/2024 3:27 PM EDT [facility] Performed by: CD 12/07/2024 3:27 PM EDT [facility] FIO2 12/07/2024 3:27 PM EDT [facility] Blood Gas Temperature Corrected Results No No 12/07/2024 3:27 PM EDT [facility] Blood, Arterial 12/07/2024 2 :02 PM EDT 12/07/2024 2:14 PM EDT us Mary Carmen Mcfadden MD LAB BLOOD ORDERABLES Final Resu lt [facility] [address] [phone] * (ABNORMAL) Glucose, Nova Meter (12/07/2024 10:54 AM EDT) Pathologist [facility] POC-GLUCOSE 146(H) 70 - 110 mg/dL 12/07/2024 10:56 AM EDT [facility] Comment: In the event of poor peripheral blood flow, venous or arterial blood should be used due to the potential of erroneous results. Notified Nurse RBV Fishing Rod Trimmer [id number] 12/07/2024 10:56 AM EDT [facility] Blood WHOLE BLOOD / Unknown 12/07/2024 10:54 AM EDT 12/07/2024 10:56 AM EDT Narrative [facility] - 12/07/2024 10:56 AM EDT Fishing Rod Trimmer ID is - [id number] us Mary Carmen Mcfadden MD POINT OF CARE TEST ORDERABLES F inal Result [facility] [address] [place] [address] * (ABNORMAL) Blood gas, arterial (12/07/2024 10:36 AM EDT) [facility] pH, Arterial 7.26(L) 7.35 - 7.45 12/07/2024 1:50 PM EDT [facility] pCO2, Arterial 50(H) 35 - 45 mm Hg 12/07/2024 1:50 PM EDT [facility] pO2, Arterial 43(LL) 80 - 100 mm Hg 12/07/2024 1:50 PM EDT [facility] HCO3, Arterial 22 20 - 26 mmol/L 12/07/2024 1:50 PM EDT [facility] Base Excess, Arterial -4.7(L) -2.0 - 2.0 mmol/L 12/07/2024 1:50 PM EDT [facility] O2 Sat, Arterial 80.4(L) 95.0 - 100.0 % 12/07/2024 1:50 PM EDT [facility] Comment:[id number] notified TRAY LORENZ RN at 12/07/2024 10:51 read-back verification CTO2 ARTERIAL 9.4 mmol/L 12/07/2024 1:50 PM EDT [facility] THB ARTERIAL 8.5(L) 12.0 - 18.0 g/dL 12/07/2024 1:50 PM EDT [facility] PaO2/FIO2 calculated 203.0 12/07/2024 1:50 PM EDT [facility] COLLECTION SITE Right Radial 12/07/2024 1:50 PM EDT [facility] Arterial Puncture Yes 12/07/2024 1:50 PM EDT [facility] Blood Gas PT Temperature C 37.0 12/07/2024 1:50 PM EDT [facility] Sen's Test Acceptable 12/07/2024 1:50 PM EDT [facility] Critical Values Notification Critical Blood gas called to TRAY LORENZ RN . [place] [id number] and confirmed on 12/07/2024 10:51 12/07/2024 1:50 PM EDT [facility] ABG Number of Draw Attempts 1 12/07/2024 1:50 PM EDT [facility] FIO2 21.0 12/07/2024 1:50 PM EDT [facility] Blood Gas Temperature Corrected Results No No 12/07/2024 1:50 PM EDT [facility] Blood, Arterial 12/07/2024 1 0:36 AM EDT 12/07/2024 1:50 PM EDT us Mary Carmen Mcfadden MD LAB BLOOD ORDERABLES Final Resu lt [facility] [address] [phone] * ECG 12 lead (12/07/2024 10:29 AM EDT) VENTRICULAR RATE EKG/MIN 91 BPM GE MUSE ATRIAL RATE (MCT) 91 BPM GE MUSE NM Interval 142 ms GE MUSE QRS-INTERVAL (MSEC) 88 ms GE MUSE QT Interval 376 ms GE MUSE QTC Interval 462 ms GE MUSE P Aroda 39 degrees GE MUSE R AXIS (MCT) -3 degrees GE MUSE T Wave Aroda 4 degrees GE MUSE [place] Diagnosis Normal sinus rhythm Nonspecific T wave abnormality Abnormal ECG When compared with ECG of 06-DEC-2024 13:16, No significant change was found Confirmed by DEYSI FOSS M.D. ([id number]) on 12/07/2024 7:36:17 PM GE MUSE 12/07/2024 10:2 9 AM EDT 12/07/2024 7:36 PM EDT Mray Carmen Mcfadden MD ECG ORDERABLES Final Result Performing Organization Address [facility] de Phone Number GE MUSE * (ABNORMAL) Glucose, Nova Meter (12/07/2024 5:51 AM EDT) Pathologist [facility] POC-GLUCOSE 159(H) 70 - 110 mg/dL 12/07/2024 5:52 AM EDT [facility] Comment: In the event of poor peripheral blood flow, venous or arterial blood should be used due to the potential of erroneous results. Notified Nurse RBV Fishing Rod Trimmer [phone] 12/07/2024 5:52 AM EDT [facility] Blood WHOLE BLOOD / Unknown 12/07/2024 5:51 AM EDT 12/07/2024 5:52 AM EDT Narrative [facility] - 12/07/2024 5:52 AM EDT Fishing Rod Trimmer ID is - [id number] Mary Carmen Mcfadden MD POINT OF CARE TEST ORDERABLES F inal Result Performing Organization Address [facility]/ZIP Co de Phone Number [facility] [address] [phone] * Erythropoietin(SENDOUT) (12/07/2024 3:59 AM EDT) Pathologist [facility] Erythropoietin 19 4 - 27 mU/mL 12/08/2024 2:30 PM EDT [facility] Comment: INTERPRETIVE INFORMATION: Erythropoietin Normal serum [...] may benefit from therapy with recombinant EPO ([facility] [id number]). Performed By: [facility] [address] [place] [address] Community Outreach Director: Lalo Mortensen MD, PhD CLIA Number: [id number] Blood Venipuncture / Unknown 12/07/2024 3:59 AM EDT 12/07/2024 4:11 AM EDT us Ariel Mills MD LAB BLOOD ORDERABLES Final Res [address] [place] [address], [facility] [phone] * Ammonia (12/07/2024 3:59 AM EDT) [facility] Signature Ammonia 44 18 - 72 mol/L 12/07/2024 4:37 AM EDT [facility] Blood Venipuncture / Unknown 12/07/2024 3:59 AM EDT 12/07/2024 4:22 AM EDT us Timothy Bai MD LAB BLOOD ORDERABLES Final Result [facility] [address] [phone] * (ABNORMAL) Comprehensive Metabolic Panel (12/07/2024 3:59 AM EDT) Sodium 146(H) 136 - 145 meq/L 12/07/2024 4:52 AM EDT [facility] Potassium 3.8 3.4 - 5.1 meq/L 12/07/2024 4:52 AM EDT [facility] Chloride 118(H) 98 - 112 meq/L 12/07/2024 4:52 AM EDT [facility] CO2 20(L) 22 - 29 meq/L 12/07/2024 4:52 AM EDT [facility] Calcium 8.4 8.4 - 10.2 mg/dL 12/07/2024 4:52 AM EDT [facility] Glucose 166(H) 82 - 115 mg/dL 12/07/2024 4:52 AM EDT [facility] BUN 72.9(H) 9.8 - 20.1 mg/dL 12/07/2024 4:52 AM EDT [facility] Creatinine 3.13(H) 0.57 - 1.11 mg/dL 12/07/2024 4:52 AM EDT [facility] BUN/Creatinine 23(H) 8 - 20 12/07/2024 4:52 AM EDT [facility] eGFR (mL/min/1.73m2) 16(L) >=60 mL/min/1. 73m2 12/07/2024 4:52 AM EDT [facility] Albumin 4.1 3.5 - 5.0 g/dL 12/07/2024 4:52 AM EDT [facility] Alkaline Phosphatase 48 40 - 150 U/L 12/07/2024 4:52 AM EDT [facility] ALT 9 <=34 U/L 12/07/2024 4:52 AM EDT [facility] Comment: ALT2 reagent used for testing does not contain P5P supplementation and therefore may miss ALT elevations in patients with B6 deficiency. This population may be as high as 10% in the [place], with risk factors including malabsorption, drug interactions, and alcoholic hepatitis. AST 24 11 - 34 U/L 12/07/2024 4:52 AM EDT [facility] Comment: AST2 reagent used for testing does not contain P5P supplementation and therefore may miss AST elevations in patients with B6 deficiency. This population may be as high as 10% in the [place], with risk factors including malabsorption, drug interactions, and alcoholic hepatitis. Total Bilirubin 0.9 0.2 - 1.2 mg/dL 12/07/2024 4:52 AM EDT [facility] Protein, Total 6.4 6.4 - 8.3 g/dL 12/07/2024 4:52 AM EDT [facility] Globulin 2.3(L) 2.5 - 4.1 g/dL 12/07/2024 4:52 AM EDT [facility] Anion Gap 12 4 - 12 12/07/2024 4:52 AM EDT [facility] A/G Ratio 1.8 0.7 - 1.9 12/07/2024 4:52 AM EDT [facility] Osmolality Calc 315.8 mOsm/kg 4:52 AM EDT [facility] Blood Venipuncture / Unknown 12/07/2024 3:59 AM EDT 12/07/2024 4:09 AM EDT Timothy Bai MD LAB BLOOD ORDERABLES Final Result [facility] [address] [phone] * Magnesium (12/07/2024 3:59 AM EDT) Magnesium 2.4 1.6 - 2.6 mg/dL 12/07/2024 4:52 AM EDT [facility] Blood Venipuncture / Unknown 12/07/2024 3:59 AM EDT 12/07/2024 4:09 AM EDT us Timothy Bai MD LAB BLOOD ORDERABLES Final Result [facility] [address] [phone] * (ABNORMAL) CBC - Hemogram (SJ-BKR) (12/07/2024 3:59 AM EDT) WBC 3.5(L) 4.0 - 10.0 K/ L 12/07/2024 4:31 AM EDT [facility] RBC 2.58(L) 3.93 - 5.22 M/ L 12/07/2024 4:31 AM EDT [facility] Hemoglobin 7.9(L) 11.2 - 15.7 GM/DL 12/07/2024 4:31 AM EDT [facility] Hematocrit 25.6(L) 34.1 - 44.9 % 12/07/2024 4:31 AM EDT [facility] MCV 99(H) 79 - 95 fL 12/07/2024 4:31 AM EDT [facility] MCH 30.6 25.6 - 32.2 pg 12/07/2024 4:31 AM EDT [facility] MCHC 30.9(L) 32.2 - 35.5 GM/DL 12/07/2024 4:31 AM EDT [facility] RDW 17.4(H) 11.7 - 14.4 % 12/07/2024 4:31 AM EDT [facility] Platelets 54(L) 140 - 375 K/CU MM 12/07/2024 4:31 AM EDT [facility] MPV 12.2 9.4 - 12.3 fL 12/07/2024 4:31 AM EDT [facility] Blood Venipuncture / Unknown 12/07/2024 3:59 AM EDT 12/07/2024 4:09 AM EDT us Timothy Bai MD LAB BLOOD ORDERABLES Final Result [facility] [address] [phone] * (ABNORMAL) Glucose, Nova Meter (12/06/2024 7:26 PM EDT) POC-GLUCOSE 170(H) 70 - 110 mg/dL 12/06/2024 7:27 PM EDT [facility] Comment: In the event of poor peripheral blood flow, venous or arterial blood should be used due to the potential of erroneous results. Notified Nurse RBV Fishing Rod Trimmer [phone] 12/06/2024 7:27 PM EDT [facility] Blood WHOLE BLOOD / Unknown 12/06/2024 7:26 PM EDT 12/06/2024 7:27 PM EDT Narrative [facility] - 12/06/2024 7:27 PM EDT Fishing Rod Trimmer ID is - [id number] Mary Carmen Mcfadden MD POINT OF CARE TEST ORDERABLES F inal Result Performing Organization Address [facility] Co de Phone Number [facility] [address] [phone] * (ABNORMAL) Glucose, Nova Meter (12/06/2024 4:06 PM EDT) POC-GLUCOSE 134(H) 70 - 110 mg/dL 12/06/2024 4:07 PM EDT [facility] Comment: In the event of poor peripheral blood flow, venous or arterial blood should be used due to the potential of erroneous results. Notified Nurse RBV Fishing Rod Trimmer [phone] 12/06/2024 4:07 PM EDT [facility] Blood WHOLE BLOOD / Unknown 12/06/2024 4:06 PM EDT 12/06/2024 4:07 PM EDT Narrative [facility] - 12/06/2024 4:07 PM EDT Fishing Rod Trimmer ID is - [id number] Mary Carmen Mcfadden MD POINT OF CARE TEST ORDERABLES F inal Result Performing Organization Address [facility] Co de Phone Number [facility] [address] [phone] * ECG 12 lead (12/06/2024 1:16 PM EDT) Pathologist [facility] VENTRICULAR RATE EKG/MIN 90 BPM GE MUSE ATRIAL RATE (MCT) 90 BPM GE MUSE NM Interval 142 ms GE MUSE QRS-INTERVAL (MSEC) 92 ms GE MUSE QT Interval 378 ms GE MUSE QTC Interval 462 ms GE MUSE P Aroda 28 degrees GE MUSE R AXIS (MCT) -4 degrees GE MUSE T Wave Aroda 21 degrees GE MUSE [place] Diagnosis Normal sinus rhythm Septal infarct , age undetermined Confirmed by DEYSI FOSS M.D. ([id number]) on 12/07/2024 7:40:21 PM GE MUSE 12/06/2024 1:16 PM EDT 12/07/2024 7:40 PM EDT us Deysi Foss MD ECG ORDERABLES Final Result Performing Organization Address [facility] Phone Number GE MUSE * (ABNORMAL) Glucose, Nova Meter (12/06/2024 10:36 AM EDT) [facility] POC-GLUCOSE 150(H) 70 - 110 mg/dL 12/06/2024 10:37 AM EDT [facility] Comment: In the event of poor peripheral blood flow, venous or arterial blood should be used due to the potential of erroneous results. Notified Nurse RBV Fishing Rod Trimmer [phone] 12/06/2024 10:37 AM EDT [facility] Blood WHOLE BLOOD / Unknown 12/06/2024 10:36 AM EDT 12/06/2024 10:37 AM EDT Narrative [facility] - 12/06/2024 10:37 AM EDT Fishing Rod Trimmer ID is - [id number] us Mary Carmen Mcfadden MD POINT OF CARE TEST ORDERABLES F inal Result Performing Organization Address [facility] Co de Phone Number [facility] [address] [phone] * XR chest AP portable (12/06/2024 7:34 [...] in the lower cervical spine. Procedure Note Mkie Pichardo MD - 12/06/2024 PORTABLE CHEST; HISTORY: [...] - 110 mg/dL 12/06/2024 5:27 AM EDT [facility] Comment: In the event of poor peripheral blood flow, venous or arterial blood should be used due to the potential of erroneous results. Notified Nurse RBV Fishing Rod Trimmer [phone] 12/06/2024 5:27 AM EDT [facility] Blood WHOLE BLOOD / Unknown 12/06/2024 5:26 AM EDT 12/06/2024 5:27 AM EDT Narrative [facility] - 12/06/2024 5:27 AM EDT Fishing [employer] Trimmer ID is - [id number] us Timothy Bai MD POINT OF CARE TEST ORDERAB LES Final Result Performing Organization Address [facility]/ZIP Co de Phone Number [facility] [address] [phone] * (ABNORMAL) Ferritin (12/06/2024 3:13 AM EDT) Ferritin 256.82(H) 4.63 - 204.00 ng/mL 12/06/2024 8:25 AM EDT [facility] Blood Venipuncture / Unknown 12/06/2024 3:13 AM EDT 12/06/2024 3:50 AM EDT us Ariel Mills MD LAB BLOOD ORDERABLES Final Res ult Performing Organization Address [facility]/ZIP Co de Phone Number [facility] [address] [phone] * Ammonia (12/06/2024 3:13 AM EDT) Ammonia 47 18 - 72 mol/L 12/06/2024 4:48 AM EDT [facility] Blood Venipuncture / Unknown 12/06/2024 3:13 AM EDT 12/06/2024 3:51 AM EDT us Timothy Bai MD LAB BLOOD ORDERABLES Final Result Performing Organization Address [facility]/ZIP Co de Phone Number [facility] [address] [phone] * (ABNORMAL) Comprehensive Metabolic Panel (12/06/2024 3:13 AM EDT) Sodium 146(H) 136 - 145 meq/L 12/06/2024 4:26 AM EDT [facility] Potassium 3.9 3.4 - 5.1 meq/L 12/06/2024 4:26 AM EDT [facility] Chloride 116(H) 98 - 112 meq/L 12/06/2024 4:26 AM EDT [facility] CO2 20(L) 22 - 29 meq/L 12/06/2024 4:26 AM [facility] Calcium 8.6 8.4 - 10.2 mg/dL 12/06/2024 4:26 AM [facility] Glucose 149(H) 82 - 115 mg/dL 12/06/2024 4:26 AM [facility] BUN 63.3(H) 9.8 - 20.1 mg/dL 12/06/2024 4:26 AM [facility] Creatinine 3.37(H) 0.57 - 1.11 mg/dL 12/06/2024 4:26 AM [facility] BUN/Creatinine 19 8 - 20 12/06/2024 4:26 AM [facility] eGFR (mL/min/1.73m2) 15(L) >=60 mL/min/1. 73m2 12/06/2024 4:26 AM [facility] Albumin 4.6 3.5 - 5.0 g/dL 12/06/2024 4:26 AM [facility] Alkaline Phosphatase 47 40 - 150 U/L 12/06/2024 4:26 AM [facility] ALT 11 <=34 U/L 12/06/2024 4:26 AM [facility] Comment: ALT2 reagent used for testing does not contain P5P supplementation and therefore may miss ALT elevations in patients with B6 deficiency. This population may be as high as 10% in the [place], with risk factors including malabsorption, drug interactions, and alcoholic hepatitis. AST 21 11 - 34 U/L 12/06/2024 4:26 AM [facility] Comment: AST2 reagent used for testing does not contain P5P supplementation and therefore may miss AST elevations in patients with B6 deficiency. This population may be as high as 10% in the [place], with risk factors including malabsorption, drug interactions, and alcoholic hepatitis. Total Bilirubin 1.2 0.2 - 1.2 mg/dL 12/06/2024 4:26 AM [facility] Protein, Total 7.0 6.4 - 8.3 g/dL 12/06/2024 4:26 AM [facility] Globulin 2.4(L) 2.5 - 4.1 g/dL 12/06/2024 4:26 AM EDT [facility] Anion Gap 14(H) 4 - 12 12/06/2024 4:26 AM EDT [facility] A/G Ratio 1.9 0.7 - 1.9 12/06/2024 4:26 AM EDT [facility] Osmolality Calc 311.4 mOsm/kg 4:26 AM EDT [facility] Blood Venipuncture / Unknown 12/06/2024 3:13 AM EDT 12/06/2024 3:50 AM EDT Timothy Bai MD LAB BLOOD ORDERABLES Final Result [facility] [address] [phone] * Magnesium (12/06/2024 3:13 AM EDT) Magnesium 2.4 1.6 - 2.6 mg/dL 12/06/2024 4:26 AM EDT [facility] Blood Venipuncture / Unknown 12/06/2024 3:13 AM EDT 12/06/2024 3:50 AM EDT Timothy Bai MD LAB BLOOD ORDERABLES Final Result [facility] [address] [phone] * (ABNORMAL) CBC - Hemogram (SJ-BKR) (12/06/2024 3:13 AM EDT) WBC 7.0 4.0 - 10.0 K/ L 12/06/2024 4:10 AM EDT [facility] RBC 2.83(L) 3.93 - 5.22 M/ L 12/06/2024 4:10 AM EDT [facility] Hemoglobin 8.7(L) 11.2 - 15.7 GM/DL 12/06/2024 4:10 AM EDT [facility] Hematocrit 28.2(L) 34.1 - 44.9 % 12/06/2024 4:10 AM EDT [facility] MCV 100(H) 79 - 95 fL 12/06/2024 4:10 AM EDT [facility] MCH 30.7 25.6 - 32.2 pg 12/06/2024 4:10 AM EDT [facility] MCHC 30.9(L) 32.2 - 35.5 GM/DL 12/06/2024 4:10 AM EDT [facility] LABORATORY RDW 17.2(H) 11.7 - 14.4 % 12/06/2024 4:10 AM EDT [facility] Platelets 80(L) 140 - 375 K/CU MM 12/06/2024 4:10 AM EDT [facility] MPV 11.7 9.4 - 12.3 fL 12/06/2024 4:10 AM EDT [facility] Blood Venipuncture / Unknown 12/06/2024 3:13 AM EDT 12/06/2024 3:53 AM EDT us Timothy Bai MD LAB BLOOD ORDERABLES Final Result [facility] [address] [phone] * (ABNORMAL) Glucose, Nova Meter (12/05/2024 7:21 PM EDT) Pathologist [facility] POC-GLUCOSE 145(H) 70 - 110 mg/dL 12/05/2024 7:22 PM EDT [facility] Comment: In the event of poor peripheral blood flow, venous or arterial blood should be used due to the potential of erroneous results. Notified Nurse RBV Fishing Rod Trimmer [id number] 12/05/2024 7:22 PM EDT [facility] Blood WHOLE BLOOD / Unknown 12/05/2024 7:21 PM EDT 12/05/2024 7:22 PM EDT Narrative [facility] - 12/05/2024 7:22 PM EDT Fishing Rod Trimmer ID is - [id number] Timothy Bai MD POINT OF CARE TEST ORDERAB LES Final Result Performing Organization Address City/[facility]/ZIP Co de Phone Number [facility] [address] [phone] * (ABNORMAL) Glucose, Nova Meter (12/05/2024 5:01 PM EDT) POC-GLUCOSE 140(H) 70 - 110 mg/dL 12/05/2024 5:02 PM EDT [facility] Comment: In the event of poor peripheral blood flow, venous or arterial blood should be used due to the potential of erroneous results. Notified Nurse RBV Fishing Rod Trimmer [id number] 12/05/2024 5:02 PM EDT [facility] Blood WHOLE BLOOD / Unknown 12/05/2024 5:01 PM EDT 12/05/2024 5:02 PM EDT Narrative [facility] - 12/05/2024 5:02 PM EDT Fishing Rod Trimmer ID is - [id number] us Timothy Bai MD POINT OF CARE TEST ORDERAB LES Final Result Performing Organization Address [facility]/ZIP Co de Phone Number [facility] [address] [phone] * (ABNORMAL) Hemoglobin (12/05/2024 3:36 PM EDT) Pathologist [facility] Hemoglobin 8.1(L) 11.2 - 15.7 GM/DL 12/05/2024 3:57 PM EDT [facility] Blood Venipuncture / Unknown 12/05/2024 3:36 PM EDT 12/05/2024 3:47 PM EDT Timothy Bai MD LAB BLOOD ORDERABLES Final Result [facility] [address] [phone] * (ABNORMAL) Glucose, Nova Meter (12/05/2024 10:23 AM EDT) POC-GLUCOSE 141(H) 70 - 110 mg/dL 12/05/2024 10:24 AM EDT [facility] Comment: In the event of poor peripheral blood flow, venous or arterial blood should be used due to the potential of erroneous results. Notified Nurse RBV Protocols Followed Fishing Rod Trimmer [id number] 12/05/2024 10:24 AM EDT [facility] Blood WHOLE BLOOD / Unknown 12/05/2024 10:23 AM EDT 12/05/2024 10:24 AM EDT Narrative [facility] - 12/05/2024 10:24 AM EDT Fishing Rod Trimmer ID is - [id number] us Timothy Bai MD POINT OF CARE TEST ORDERAB LES Final Result Performing Organization Address [facility] Co de Phone Number [facility] [address] [phone] * (ABNORMAL) Glucose, Nova Meter (12/05/2024 8:10 AM EDT) POC-GLUCOSE 123(H) 70 - 110 mg/dL 12/05/2024 8:27 AM EDT [facility] Comment: In the event of poor peripheral blood flow, venous or arterial blood should be used due to the potential of erroneous results. Notified Nurse RBV Fishing Rod Trimmer [id number] 12/05/2024 8:27 AM EDT [facility] Blood WHOLE BLOOD / Unknown 12/05/2024 8:10 AM EDT 12/05/2024 8:27 AM EDT Narrative [facility] - 12/05/2024 8:27 AM EDT Fishing Rod Trimmer ID is - [id number] us Timothy Bai MD POINT OF CARE TEST ORDERAB LES Final Result Performing Organization Address [facility] Co de Phone Number [facility] [address] [phone] * (ABNORMAL) Hemoglobin (12/05/2024 8:00 AM EDT) Hemoglobin 8.2(L) 11.2 - 15.7 GM/DL 12/05/2024 8:21 AM EDT [facility] Blood Venipuncture / Unknown 12/05/2024 8:00 AM EDT 12/05/2024 8:06 AM EDT Timothy Bai MD LAB BLOOD ORDERABLES Final Result Performing Organization Address [facility]/State/ZIP Co de Phone Number [facility] [address] [phone] * Ammonia (12/05/2024 3:20 AM EDT) Pathologist [facility] Ammonia 41 18 - 72 mol/L 12/05/2024 4:02 AM EDT [facility] Blood Venipuncture / Unknown 12/05/2024 3:20 AM EDT 12/05/2024 3:24 AM EDT Timothy Bai MD LAB BLOOD ORDERABLES Final Result [facility] [address] [phone] * (ABNORMAL) Comprehensive Metabolic Panel (12/05/2024 3:20 AM EDT) Pathologist [facility] Sodium 146(H) 136 - 145 meq/L 12/05/2024 4:11 AM EDT [facility] Potassium 3.6 3.4 - 5.1 meq/L 12/05/2024 4:11 AM EDT [facility] Chloride 117(H) 98 - 112 meq/L 12/05/2024 4:11 AM EDT [facility] CO2 20(L) 22 - 29 meq/L 12/05/2024 4:11 AM EDT [facility] Calcium 8.3(L) 8.4 - 10.2 mg/dL 12/05/2024 4:11 AM [facility] Glucose 148(H) 82 - 115 mg/dL 12/05/2024 4:11 AM [facility] BUN 59.4(H) 9.8 - 20.1 mg/dL 12/05/2024 4:11 AM [facility] Creatinine 3.14(H) 0.57 - 1.11 mg/dL 12/05/2024 4:11 AM [facility] BUN/Creatinine 19 8 - 20 12/05/2024 4:11 AM [facility] eGFR (mL/min/1.73m2) 16(L) >=60 mL/min/1. 73m2 12/05/2024 4:11 AM [facility] Albumin 4.3 3.5 - 5.0 g/dL 12/05/2024 4:11 AM [facility] Alkaline Phosphatase 44 40 - 150 U/L 12/05/2024 4:11 AM [facility] ALT 8 <=34 U/L 12/05/2024 4:11 AM [facility] Comment: ALT2 reagent used for testing does not contain P5P supplementation and therefore may miss ALT elevations in patients with B6 deficiency. This population may be as high as 10% in the [place], with risk factors including malabsorption, drug interactions, and alcoholic hepatitis. AST 23 11 - 34 U/L 12/05/2024 4:11 AM [facility] Comment: AST2 reagent used for testing does not contain P5P supplementation and therefore may miss AST elevations in patients with B6 deficiency. This population may be as high as 10% in the [place], with risk factors including malabsorption, drug interactions, and alcoholic hepatitis. Total Bilirubin 1.2 0.2 - 1.2 mg/dL 12/05/2024 4:11 AM [facility] Protein, Total 6.4 6.4 - 8.3 g/dL 12/05/2024 4:11 AM [facility] Globulin 2.1(L) 2.5 - 4.1 g/dL 12/05/2024 4:11 AM [facility] Anion Gap 13(H) 4 - 12 12/05/2024 4:11 AM EDT [facility] A/G Ratio 2.0(H) 0.7 - 1.9 12/05/2024 4:11 AM EDT [facility] Osmolality Calc 310.0 mOsm/kg 4:11 AM EDT [facility] Blood Venipuncture / Unknown 12/05/2024 3:20 AM EDT 12/05/2024 3:24 AM EDT Timothy Bai MD LAB BLOOD ORDERABLES Final Result Performing Organization Address City/[facility]/ZIP Co de Phone Number [facility] [address] [phone] * Magnesium (12/05/2024 3:20 AM EDT) Magnesium 2.3 1.6 - 2.6 mg/dL 12/05/2024 4:11 AM EDT [facility] Blood Venipuncture / Unknown 12/05/2024 3:20 AM EDT 12/05/2024 3:24 AM EDT Timothy Bai MD LAB BLOOD ORDERABLES Final Result Performing Organization Address [facility]/ZIP Co de Phone Number [facility] [address] [phone] * (ABNORMAL) CBC - Hemogram (SJ-BKR) (12/05/2024 3:20 AM EDT) WBC 4.2 4.0 - 10.0 K/ L 12/05/2024 3:34 AM EDT [facility] RBC 2.64(L) 3.93 - 5.22 M/ L 12/05/2024 3:34 AM EDT [facility] Hemoglobin 8.2(L) 11.2 - 15.7 GM/DL 12/05/2024 3:34 AM EDT [facility] Hematocrit 25.9(L) 34.1 - 44.9 % 12/05/2024 3:34 AM EDT [facility] MCV 98(H) 79 - 95 fL 12/05/2024 3:34 AM EDT [facility] MCH 31.1 25.6 - 32.2 pg 12/05/2024 3:34 AM EDT [facility] MCHC 31.7(L) 32.2 - 35.5 GM/DL 12/05/2024 3:34 AM EDT [facility] RDW 17.1(H) 11.7 - 14.4 % 12/05/2024 3:34 AM EDT [facility] Platelets 60(L) 140 - 375 K/CU MM 12/05/2024 3:34 AM EDT [facility] MPV 11.3 9.4 - 12.3 fL 12/05/2024 3:34 AM EDT [facility] Blood Venipuncture / Unknown 12/05/2024 3:20 AM EDT 12/05/2024 3:24 AM EDT us Timothy Bai MD LAB BLOOD ORDERABLES Final Result [facility] [address] [phone] * (ABNORMAL) Hemoglobin (12/04/2024 11:54 PM EDT) Hemoglobin 8.7(L) 11.2 - 15.7 GM/DL 12/05/2024 12:07 AM EDT [facility] Blood Venipuncture / Unknown 12/04/2024 11:54 PM EDT 12/04/2024 11:59 PM EDT Timothy Bai MD LAB BLOOD ORDERABLES Final Result [facility] [address] [phone] * (ABNORMAL) Glucose, Nova Meter (12/04/2024 10:20 PM EDT) POC-GLUCOSE 147(H) 70 - 110 mg/dL 12/04/2024 10:22 PM EDT [facility] Comment: In the event of poor peripheral blood flow, venous or arterial blood should be used due to the potential of erroneous results. Protocols Followed Fishing Rod Trimmer [id number] 12/04/2024 10:22 PM EDT [facility] Blood WHOLE BLOOD / Unknown 12/04/2024 10:20 PM EDT 12/04/2024 10:21 PM EDT Narrative [facility] - 12/04/2024 10:22 PM EDT Fishing Rod Trimmer ID is - [id number] Timothy Bai MD POINT OF CARE TEST ORDERAB LES Final Result Performing Organization Address City/[facility]/ZIP Co de Phone Number [facility] [address] [phone] * ECG 12 lead (12/04/2024 8:08 PM EDT) SYSTOLIC BLOOD PRESSURE (MCT) 133 mmHg GE MUSE DIASTOLIC BLOOD PRESSURE (MCT) 61 mmHg GE MUSE VENTRICULAR RATE EKG/MIN 85 BPM GE MUSE ATRIAL RATE (MCT) 85 BPM GE MUSE NM Interval 140 ms GE MUSE QRS-INTERVAL (MSEC) 94 ms GE MUSE QT Interval 426 ms GE MUSE QTC Interval 506 ms GE MUSE P Aroda 44 degrees GE MUSE R AXIS (MCT) 27 degrees GE MUSE T Wave Aroda -27 degrees GE MUSE [place] Diagnosis Normal sinus rhythm Nonspecific T wave abnormality Abnormal ECG Confirmed by DEYSI FOSS M.D. ([id number]) on 12/05/2024 1:52:09 PM GE MUSE 12/04/2024 8:08 PM EDT 12/05/2024 1:52 PM EDT Timothy Bai MD ECG ORDERABLES Final Resu lt Performing Organization Address City/[facility]/ZIP Co de Phone Number GE MUSE * (ABNORMAL) Glucose, Nova Meter (12/04/2024 4:50 PM EDT) POC-GLUCOSE 137(H) 70 - 110 mg/dL 12/04/2024 4:51 PM EDT [facility] Comment: In the event of poor peripheral blood flow, venous or arterial blood should be used due to the potential of erroneous results. Protocols Followed Fishing Rod Trimmer [id number] 12/04/2024 4:51 PM EDT [facility] Blood WHOLE BLOOD / Unknown 12/04/2024 4:50 PM EDT 12/04/2024 4:51 PM EDT Narrative [facility] - 12/04/2024 4:51 PM EDT Fishing Rod Trimmer ID is - [id number] Timothy Bai MD POINT OF CARE TEST ORDERAB LES Final Result Performing Organization Address [facility]/ZIP Co de Phone Number [facility] [address] [phone] * (ABNORMAL) Hemoglobin (12/04/2024 4:27 PM EDT) Hemoglobin 8.9(L) 11.2 - 15.7 GM/DL 12/04/2024 4:36 PM EDT [facility] Blood Venipuncture / Unknown 12/04/2024 4:27 PM EDT 12/04/2024 4:31 PM EDT us Timothy Bai MD LAB BLOOD ORDERABLES Final Result Performing Organization Address [facility]/ZIP Co de Phone Number [facility] [address] [phone] * (ABNORMAL) Basic Metabolic Panel (12/04/2024 10:53 AM EDT) Sodium 146(H) 136 - 145 meq/L 12/04/2024 11:17 AM EDT [facility] Potassium 3.6 3.4 - 5.1 meq/L 12/04/2024 11:17 AM EDT [facility] CO2 20(L) 22 - 29 meq/L 12/04/2024 11:17 AM EDT [facility] Chloride 116(H) 98 - 112 meq/L 12/04/2024 11:17 AM EDT [facility] Glucose 137(H) 82 - 115 mg/dL 12/04/2024 11:17 AM EDT [facility] BUN 61.1(H) 9.8 - 20.1 mg/dL 12/04/2024 11:17 AM EDT [facility] Creatinine 3.38(H) 0.57 - 1.11 mg/dL 12/04/2024 11:17 AM EDT [facility] BUN/Creatinine 18 8 - 20 12/04/2024 11:17 AM EDT [facility] Calcium 8.5 8.4 - 10.2 mg/dL 12/04/2024 11:17 AM [facility] Anion Gap 14(H) 4 - 12 12/04/2024 11:17 AM [facility] eGFR (mL/min/1.73m2) 15(L) >=60 mL/min/1.7 3m2 12/04/2024 11:17 AM [facility] Osmolality Calc 310.0 mOsm/kg 11:17 AM [facility] Blood Venipuncture / Unknown 12/04/2024 10:53 AM EDT 12/04/2024 10:57 AM EDT us Timothy Bai MD LAB BLOOD ORDERABLES Final Result Performing Organization Address City/State/[facility] Co de Phone Number [facility] [address] [phone] * (ABNORMAL) Glucose, Nova Meter (12/04/2024 10:52 AM EDT) POC-GLUCOSE 136(H) 70 - 110 mg/dL 12/04/2024 10:57 AM EDT [facility] Comment: In the event of poor peripheral blood flow, venous or arterial blood should be used due to the potential of erroneous results. Notified Nurse RBV Fishing Rod Trimmer [phone] 12/04/2024 10:57 AM T [facility] Blood WHOLE BLOOD / Unknown 12/04/2024 10:52 AM EDT 12/04/2024 10:57 AM EDT Narrative [facility] - 12/04/2024 10:57 AM EDT Fishing Rod Trimmer ID is - [id number] us Timothy Bai MD POINT OF CARE TEST ORDERAB LES Final Result [facility] [address] [phone] * (ABNORMAL) CBC with automated diff (12/04/2024 8:15 AM EDT) WBC 4.1 4.0 - 10.0 K/ L 12/04/2024 9:56 AM EDT [facility] RBC 2.90(L) 3.93 - 5.22 M/ L 12/04/2024 9:56 AM EDT [facility] Hemoglobin 8.8(L) 11.2 - 15.7 GM/DL 12/04/2024 9:56 AM EDT [facility] Hematocrit 29.0(L) 34.1 - 44.9 % 12/04/2024 9:56 AM EDT [facility] MCV 100(H) 79 - 95 fL 12/04/2024 9:56 AM EDT [facility] MCH 30.3 25.6 - 32.2 pg 12/04/2024 9:56 AM EDT [facility] MCHC 30.3(L) 32.2 - 35.5 GM/DL 12/04/2024 9:56 AM EDT [facility] RDW 17.7(H) 11.7 - 14.4 % 12/04/2024 9:56 AM EDT [facility] Platelets 65(L) 140 - 375 K/CU MM 12/04/2024 9:56 AM EDT [facility] MPV 10.8 9.4 - 12.3 fL 12/04/2024 9:56 AM EDT [facility] % Neutros 79(H) 34 - 71 % 12/04/2024 9:56 AM EDT [facility] % Lymphs 12(L) 19 - 52 % 12/04/2024 9:56 AM EDT [facility] % Monos 9 5 - 13 % 12/04/2024 9:56 AM EDT [facility] % Eos 0(L) 1 - 6 % 12/04/2024 9:56 AM EDT [facility] % Baso 0 0 - 1 % 12/04/2024 9:56 AM EDT [facility] NRBC Absolute <0.01 0 - 0.012 K/ul 12/04/2024 9:56 AM EDT [facility] # Neutros 3.25 1.56 - 6.13 K/ L 12/04/2024 9:56 AM EDT [facility] # Lymphs 0.48(L) 1.18 - 3.74 K/ L 12/04/2024 9:56 AM EDT [facility] # Monos 0.35 0.24 - 0.86 K/ L 12/04/2024 9:56 AM EDT [facility] # Eos <0.03(L) 0.04 - 0.36 K/ L 12/04/2024 9:56 AM EDT [facility] # Baso <0.03 0.01 - 0.08 K/ L 12/04/2024 9:56 AM EDT [facility] Immature Granulocytes-Re lative 0.50(H) 0.01 - 0.43 % 12/04/2024 9:56 AM EDT [facility] # IG <0.03 0.00 - 0.03 K/uL 12/04/2024 9:56 AM EDT [facility] Blood Venipuncture / Unknown 12/04/2024 8:15 AM EDT 12/04/2024 8:32 AM EDT [facility] - 12/04/2024 9:56 AM EDT When [...] BLOOD ORDERABLES Final Result Performing Organization Address City/[facility]/ZIP Co de Phone Number [facility] [address] [phone] * (ABNORMAL) Hemoglobin (12/04/2024 8:15 AM EDT) Pathologist [facility] Hemoglobin 9.0(L) 11.2 - 15.7 GM/DL 12/04/2024 8:36 AM EDT [facility] Blood Venipuncture / Unknown 12/04/2024 8:15 AM EDT 12/04/2024 8:32 AM EDT Timothy Bai MD LAB BLOOD ORDERABLES Final Result Performing Organization Address [facility] Co de Phone Number [facility] [address] [phone] * ANCA Vasculitis Profile(SENDOUT) (12/04/2024 8:15 AM EDT) Pathologist [facility] Myeloperoxidase (MPO) Ab, IgG 0 0 - 19 AU/mL 12/07/2024 8:52 AM EDT [facility] [employer] [facility] Comment: INTERPRETIVE INFORMATION: Myeloperoxidase Abs, IgG 19 AU/mL or Less ......... Negative 20-25 AU/mL .............. Equivocal 26 AU/mL or Greater ...... Positive Approximately 90% of patients with a P-ANCA pattern by IFA have antibodies specific for MPO. Serine Proteinase 3 (PR3) Ab, IgG 0 0 - 19 AU/mL 12/07/2024 8:52 AM EDT [facility] Comment: INTERPRETIVE INFORMATION: Serine Proteinase 3, IgG 19 AU/mL or Less ........ Negative 20-25 AU/mL ............. Equivocal 26 AU/mL or Greater ..... Positive Approximately 85% of patients with a C-ANCA pattern by IFA have antibodies specific for PR3. ANCA IFA Titer <1:20 <1:20 12/07/2024 8:52 AM EDT [facility] ANCA IFA Pattern None Detected None Detected 12/07/2024 8:52 AM EDT [facility] Comment: INTERPRETIVE INFORMATION: ANCA IFA Pattern Neutrophil Cytoplasmic Antibodies (C-ANCA = granular cytoplasmic staining, P-ANCA = perinuclear staining) are found in the serum of over 90 percent of patients with certain necrotizing systemic vasculitides, and usually in less than 5 percent of patients with collagen vascular disease or arthritis. Performed By: [facility] [employer] [address] [place] [address] Community Outreach Director: Lalo Mortensen MD, PhD CLIA Number: [id number] Blood Venipuncture / Unknown 12/04/2024 8:15 AM EDT 12/04/2024 8:32 AM EDT us Hema Cervantes MD LAB BLOOD ORDERABLES Final Re sult [address] [address], [facility] [phone] * JEANA Reflexive Profile(SENDOUT) (12/04/2024 8:15 AM EDT) Anti-Nuclear Ab (JEANA), IgG by SHARON None Detected None Detected 12/06/2024 3:51 PM EDT [facility] [employer] Comment: No Anti-Nuclear Antibodies (JEANA) detected by SHARON. The Extractable Nuclear Antigen Antibodies (ASSISTANT PROFESSOR, [place], SSA 52, SSA 60, Scleroderma, Lilia-1 and SSB) and Double Stranded DNA (dsDNA) Antibody, IgG will not be performed. If suspicion of connective tissue disease is strong, and JEANA is negative by SHARON, consider testing for JEANA by IFA ([id number]). INTERPRETIVE INFORMATION: Anti-Nuclear Antibodies (JEANA), IgG by SHARON Antinuclear Antibodies (JEANA), IgG by SHARON: JEANA specimens are screened using enzyme-linked immunosorbent assay (SHARON) methodology. All SHARON results reported as Detected are further tested by indirect fluorescent assay (IFA) using HEp-2 substrate with an IgG-specific conjugate. The JEANA SHARON screen is designed to detect antibodies against dsDNA, histones, SS-A (Ro), SS-B (La), Llanes, Llanes/ASSISTANT PROFESSOR, Scl-70, Lilia-1, centromeric proteins, other antigens extracted from the HEp-2 cell nucleus. JEANA SHARON assays have been reported to have lower sensitivities than JEANA IFA for systemic autoimmune rheumatic diseases (SARD). Negative results do not necessarily rule out SARD. Performed By: [employer] [address] [id number] Community Outreach Director: Lalo Mortensen MD, PhD CLIA Number: [id number] Blood Venipuncture / Unknown 12/04/2024 8:15 AM EDT 12/04/2024 8:32 AM EDT us Hema Cervantes MD LAB BLOOD ORDERABLES Final Re sult [facility] [employer] [facility] [address] [place], [place] [id number], [facility] [phone] * XR chest AP portable (12/04/2024 6:49 [...] Transcribed by Regina Villasenor PA-C. Kirsty Tuttle [address] PRODUCTION IMG DIAGNOSTIC IMAGING ORDER LONNY Final Result * (ABNORMAL) Blood gas, arterial (12/04/2024 6:34 AM EDT) pH, Arterial 7.29(L) 7.35 - 7.45 12/04/2024 7:10 AM EDT [facility] pCO2, Arterial 43 35 - 45 mm Hg 12/04/2024 7:10 AM EDT [facility] pO2, Arterial 106(H) 80 - 100 mm Hg 12/04[facility]2024 [facility] HCO3, Arterial 21 20 - 26 mmol/L 12/04/2024 7:10 AM [facility] Base Excess, Arterial -5.2(L) -2.0 - 2.0 mmol/L 12/04/2024 7:10 [facility] O2 Sat, Arterial 98.8 95.0 - 100.0 % 12/04/2024 7:10 AM T [facility] CTO2 ARTERIAL 11.9 mmol/L 12/04/2024 7:10 AM [facility] THB ARTERIAL 8.6(L) 12.0 - 18.0 g/dL 12/04/2024 7:10 AM [facility] SITE Right Brachial 12/04/2024 7:10 AM [facility] Arterial Puncture Yes 12/04/2024 7:10 AM [facility] Blood Gas O2 Delivery Device Cannula 12/04/2024 7:10 AM T [facility] Oxygen Flow Rate 3 12/05/19 7:10 AM [facility] Blood Gas PT Temperature C 37.0 12/04/2024 7:10 AM [facility] Sen's Test Not Applicable 12/05/19 7:[facility] Critical Values Notification Critical Blood gas called to DAYANARA MATIAS . Results acknowledged/r ead back to [id number] and confirmed on 12/04/2024 07:09 12/04/2024 7:10 AM EDT [facility] ABG Number of Draw Attempts 1 12/04/2024 7:10 AM EDT [facility] FIO2 12/04/2024 7:10 AM EDT [facility] Blood Gas Temperature Corrected Results No No 12/04/2024 7:10 AM EDT [facility] Blood, Arterial 12/04/2024 6 :34 AM EDT 12/04/2024 7:10 AM EDT us Kirsty Tuttle APRN LAB BLOOD ORDERABLES Final R esult Performing Organization Address City/[facility]/ZIP Co de Phone Number [facility] [address] [phone] * (ABNORMAL) Glucose, Nova Meter (12/04/2024 6:13 AM EDT) POC-GLUCOSE 155(H) 70 - 110 mg/dL 12/04/2024 6:14 AM EDT [facility] Comment: In the event of poor peripheral blood flow, venous or arterial blood should be used due to the potential of erroneous results. Protocols Followed [employer] [id number] 12/04/2024 6:14 AM EDT [facility] Blood WHOLE BLOOD / Unknown 12/04/2024 6:13 AM EDT 12/04/2024 6:14 AM EDT Narrative [facility] - 12/04/2024 6:14 AM EDT F[employer] Trimmer ID is - [id number] us Timothy Bai MD POINT OF CARE TEST ORDERAB LES Final Result Performing Organization Address City/[facility]/ZIP Co de Phone Number [facility] [address] [phone] * (ABNORMAL) CBC with automated diff (12/04/2024 3:35 AM EDT) WBC 3.2(L) 4.0 - 10.0 K/ L 12/04/2024 3:55 AM EDT [facility] RBC 2.88(L) 3.93 - 5.22 M/ L 12/04/2024 3:55 AM EDT [facility] Hemoglobin 8.9(L) 11.2 - 15.7 GM/DL 12/04/2024 3:55 AM EDT [facility] Hematocrit 28.4(L) 34.1 - 44.9 % 12/04/2024 3:55 AM EDT [facility] MCV 99(H) 79 - 95 fL 12/04/2024 3:55 AM EDT [facility] MCH 30.9 25.6 - 32.2 pg 12/04/2024 3:55 AM EDT [facility] MCHC 31.3(L) 32.2 - 35.5 GM/DL 12/04/2024 3:55 AM EDT [facility] RDW 17.4(H) 11.7 - 14.4 % 12/04/2024 3:55 AM EDT [facility] Platelets 61(L) 140 - 375 K/CU MM 12/04/2024 3:55 AM EDT [facility] MPV 11.1 9.4 - 12.3 fL 12/04/2024 3:55 AM EDT [facility] % Neutros 80(H) 34 - 71 % 12/04/2024 3:55 AM EDT [facility] % Lymphs 12(L) 19 - 52 % 12/04/2024 3:55 AM EDT [facility] % Monos 8 5 - 13 % 12/04/2024 3:55 AM EDT [facility] % Eos 0(L) 1 - 6 % 12/04/2024 3:55 AM EDT [facility] % Baso 0 0 - 1 % 12/04/2024 3:55 AM EDT [facility] NRBC Absolute <0.01 0 - 0.012 K/ul 12/04/2024 3:55 AM EDT [facility] # Neutros 2.58 1.56 - 6.13 K/ L 12/04/2024 3:55 AM EDT [facility] # Lymphs 0.39(L) 1.18 - 3.74 K/ L 12/04/2024 3:55 AM EDT [facility] # Monos 0.25 0.24 - 0.86 K/ L 12/04/2024 3:55 AM EDT [facility] # Eos <0.03(L) 0.04 - 0.36 K/ L 12/04/2024 3:55 AM EDT [facility] # Baso <0.03 0.01 - 0.08 K/ L 12/04/2024 3:55 AM EDT [facility] Immature Granulocytes-Re lative 0.30 0.01 - 0.43 % 12/04/2024 3:55 AM EDT [facility] # IG <0.03 0.00 - 0.03 K/uL 12/04/2024 3:55 AM EDT [facility] Blood Venipuncture / Unknown 12/04/2024 3:35 AM EDT 12/04/2024 3:41 AM EDT Narrative [facility] - 12/04/2024 3:55 AM EDT When [...] APRN LAB BLOOD ORDERABLES Final R esult [facility] [address] [phone] * Ammonia (12/04/2024 3:35 AM EDT) Ammonia 30 18 - 72 mol/L 12/04/2024 3:57 AM EDT [facility] Blood Venipuncture / Unknown 12/04/2024 3:35 AM EDT 12/04/2024 3:41 AM EDT us Timothy Bai MD LAB BLOOD ORDERABLES Final Result [facility] [address] [phone] * Phosphorus (12/04/2024 3:34 AM EDT) Phosphorus 4.2 2.5 - 4.5 mg/dL 12/04/2024 4:04 AM EDT [facility] Blood Venipuncture / Unknown 12/04/2024 3:34 AM EDT 12/04/2024 3:41 AM EDT us Kirsty Tuttle APRN LAB BLOOD ORDERABLES Final R esult [facility] [address] [phone] * (ABNORMAL) Comprehensive Metabolic Panel (12/04/2024 3:34 AM EDT) Sodium 143 136 - 145 meq/L 12/04/2024 4:04 AM EDT [facility] Potassium 3.7 3.4 - 5.1 meq/L 12/04/2024 4:04 AM EDT [facility] Chloride 115(H) 98 - 112 meq/L 12/04/2024 4:04 AM EDT [facility] CO2 20(L) 22 - 29 meq/L 12/04/2024 4:04 AM EDT [facility] Calcium 8.3(L) 8.4 - 10.2 mg/dL 12/04/2024 4:04 AM EDT [facility] Glucose 203(H) 82 - 115 mg/dL 12/04/2024 4:04 AM EDT [facility] BUN 58.6(H) 9.8 - 20.1 mg/dL 12/04/2024 4:04 AM EDT [facility] Creatinine 3.43(H) 0.57 - 1.11 mg/dL 12/04/2024 4:04 AM EDT [facility] BUN/Creatinine 17 8 - 20 12/04/2024 4:04 AM EDT [facility] eGFR (mL/min/1.73m2) 15(L) >=60 mL/min/1. 73m2 12/04/2024 4:04 AM EDT [facility] Albumin 4.2 3.5 - 5.0 g/dL 12/04/2024 4:04 AM EDT [facility] Alkaline Phosphatase 47 40 - 150 U/L 12/04/2024 4:04 AM EDT [facility] ALT 11 <=34 U/L 12/04/2024 4:04 AM EDT [facility] Comment: ALT2 reagent used for testing does not contain P5P supplementation and therefore may miss ALT elevations in patients with B6 deficiency. This population may be as high as 10% in the [place], with risk factors including malabsorption, drug interactions, and alcoholic hepatitis. AST 21 11 - 34 U/L 12/04/2024 4:04 AM EDT [facility] Comment: AST2 reagent used for testing does not contain P5P supplementation and therefore may miss AST elevations in patients with B6 deficiency. This population may be as high as 10% in the [place], with risk factors including malabsorption, drug interactions, and alcoholic hepatitis. Total Bilirubin 1.1 0.2 - 1.2 mg/dL 12/04/2024 4:04 AM T [facility] Protein, Total 6.7 6.4 - 8.3 g/dL 12/04/2024 4:04 AM EDT [facility] Globulin 2.5 2.5 - 4.1 g/dL 12/04/2024 4:04 AM T [facility] Anion Gap 12 4 - 12 12/04/2024 4:04 AM T [facility] A/G Ratio 1.7 0.7 - 1.9 12/04/2024 4:04 AM T [facility] Osmolality Calc 307.2 mOsm/kg 4:04 AM [facility] Blood Venipuncture / Unknown 12/04/2024 3:34 AM EDT 12/04/2024 3:41 AM EDT us Timothy Bai MD LAB BLOOD ORDERABLES Final Result [facility] [address] [phone] * Magnesium (12/04/2024 3:34 AM EDT) Magnesium 2.5 1.6 - 2.6 mg/dL 12/04/2024 4:04 AM EDT [facility] Blood Venipuncture / Unknown 12/04/2024 3:34 AM EDT 12/04/2024 3:41 AM EDT us Timothy Bai MD LAB BLOOD ORDERABLES Final Result [facility] [address] [phone] * ECG 12 lead (12/04/2024 3:25 AM EDT) SYSTOLIC BLOOD PRESSURE (MCT) 165 mmHg GE MUSE DIASTOLIC BLOOD PRESSURE (MCT) 77 mmHg GE MUSE VENTRICULAR RATE EKG/MIN 80 BPM GE MUSE ATRIAL RATE (MCT) 80 BPM GE MUSE NM Interval 154 ms GE MUSE QRS-INTERVAL (MSEC) 76 ms GE MUSE QT Interval 380 ms GE MUSE QTC Interval 438 ms GE MUSE P Aroda 47 degrees GE MUSE R AXIS (MCT) 44 degrees GE MUSE T Wave Aroda -30 degrees GE MUSE [place] Diagnosis Normal sinus rhythm Low voltage QRS Nonspecific T wave abnormality Confirmed by DEYSI FOSS M.D. ([id number]) on 12/04/2024 11:05:22 AM GE MUSE 12/04/2024 3:25 AM EDT 12/04/2024 11:05 AM EDT us Deysi Foss MD ECG ORDERABLES Final Result GE MUSE * (ABNORMAL) Hemoglobin (12/04/2024 1:04 AM EDT) Hemoglobin 9.0(L) 11.2 - 15.7 GM/DL 12/04/2024 1:30 AM EDT [facility] Blood Venipuncture / Unknown 12/04/2024 1:04 AM EDT 12/04/2024 1:20 AM EDT us Timothy Bai MD LAB BLOOD ORDERABLES Final Result [facility] 1 [place] [address], [facility] [phone] * (ABNORMAL) Glucose, Nova Meter (12/03/2024 9:41 PM EDT) POC-GLUCOSE 146(H) 70 - 110 mg/dL 12/03/2024 9:43 PM EDT [facility] Comment: In the event of poor peripheral blood flow, venous or arterial blood should be used due to the potential of erroneous results. Protocols Followed [employer] [id number] 12/03/2024 9:43 PM EDT [facility] Blood WHOLE BLOOD / Unknown 12/03/2024 9:41 PM EDT 12/03/2024 9:43 PM EDT Narrative [facility] - 12/03/2024 9:43 PM EDT [employer] Tr[employer] ID is - [id number] us Timothy Bai MD POINT OF CARE TEST ORDERAB LES Final Result [facility] [address] [place] [address], [facility] [phone] * (ABNORMAL) Glucose, Nova Meter (12/03/2024 5:19 PM EDT) POC-GLUCOSE 146(H) 70 - 110 mg/dL 12/03/2024 5:24 PM EDT [facility] Comment: In the event of poor peripheral blood flow, venous or arterial blood should be used due to the potential of erroneous results. Notified Nurse RBV [employer] [id number] 12/03/2024 5:24 PM EDT [facility] Blood WHOLE BLOOD / Unknown 12/03/2024 5:19 PM EDT 12/03/2024 5:24 PM EDT Narrative [facility] - 12/03/2024 5:24 PM EDT [employer] Tr[employer] ID is - [id number] us Timothy Bai MD POINT OF CARE TEST ORDERAB LES Final Result [facility] [address] [place] [address], [facility] [phone] * XR chest AP portable (12/03/2024 4:45 [...] (MCT) -11 degrees GE MUSE T Wave Aroda -58 degrees GE MUSE [place] Diagnosis Atrial fibrillation with rapid ventricular response Possible Anterolateral infarct , age undetermined Possible abberancy Confirmed by DEYSI FOSS M.D. ([id number]) on 12/03/2024 5:58:45 PM GE MUSE 12/03/2024 2:16 PM EDT 12/03/2024 5:58 PM EDT Timothy Bai MD ECG ORDERABLES Final Resu lt Performing Organization Address [facility] Co de Phone Number GE MUSE * (ABNORMAL) Glucose, Nova Meter (12/03/2024 10:45 AM EDT) [facility] POC-GLUCOSE 156(H) 70 - 110 mg/dL 12/03/2024 10:49 AM EDT [facility] Comment: In the event of poor peripheral blood flow, venous or arterial blood should be used due to the potential of erroneous results. Notified Nurse RBV [employer] [id number] 12/03/2024 10:49 AM EDT [facility] Blood WHOLE BLOOD / Unknown 12/03/2024 10:45 AM EDT 12/03/2024 10:49 AM EDT Narrative [facility] - 12/03/2024 10:49 AM EDT [employer] ID is - [id number] Timothy Bai MD POINT OF CARE TEST ORDERAB LES Final Result Performing Organization Address [facility] Co de Phone Number [facility] [address] [phone] * ECG 12 lead (12/03/2024 10:39 AM EDT) Pathologist [facility] VENTRICULAR RATE EKG/MIN 97 BPM GE MUSE ATRIAL RATE (MCT) 97 BPM GE MUSE NM Interval 150 ms GE MUSE QRS-INTERVAL (MSEC) 88 ms GE MUSE QT Interval 362 ms GE MUSE QTC Interval 459 ms GE MUSE P Aroda 40 degrees GE MUSE R AXIS (MCT) 8 degrees GE MUSE T Wave Aroda -8 degrees GE MUSE [place] Diagnosis Normal sinus rhythm Normal ECG No previous ECGs available Confirmed by DEYSI FOSS M.D. ([id number]) on 12/03/2024 5:59:01 PM GE MUSE 12/03/2024 10:3 9 AM EDT 12/03/2024 5:59 PM EDT us Timothy Bai MD ECG ORDERABLES Final Resu lt GE MUSE * (ABNORMAL) CBC with automated diff (12/03/2024 8:31 AM EDT) WBC 2.8(L) 4.0 - 10.0 K/ L 12/03/2024 9:00 AM EDT [facility] RBC 2.68(L) 3.93 - 5.22 M/ L 12/03/2024 9:00 AM EDT [facility] Hemoglobin 8.2(L) 11.2 - 15.7 GM/DL 12/03/2024 9:00 AM EDT [facility] Hematocrit 26.1(L) 34.1 - 44.9 % 12/03/2024 9:00 AM EDT [facility] MCV 97(H) 79 - 95 fL 12/03/2024 9:00 AM EDT [facility] MCH 30.6 25.6 - 32.2 pg 12/03/2024 9:00 AM EDT [facility] MCHC 31.4(L) 32.2 - 35.5 GM/DL 12/03/2024 9:00 AM EDT [facility] RDW 17.5(H) 11.7 - 14.4 % 12/03/2024 9:00 AM EDT [facility] Platelets 55(L) 140 - 375 K/CU MM 12/03/2024 9:00 AM EDT [facility] MPV 10.0 9.4 - 12.3 fL 12/03/2024 9:00 AM EDT [facility] % Neutros 79(H) 34 - 71 % 12/03/2024 9:00 AM EDT [facility] % Lymphs 13(L) 19 - 52 % 12/03/2024 9:00 AM EDT [facility] % Monos 6 5 - 13 % 12/03/2024 9:00 AM EDT [facility] % Eos 0(L) 1 - 6 % 12/03/2024 9:00 AM EDT [facility] % Baso 0 0 - 1 % 12/03/2024 9:00 AM EDT [facility] NRBC Absolute <0.01 0 - 0.012 K/ul 12/03/2024 9:00 AM EDT [facility] # Neutros 2.22 1.56 - 6.13 K/ L 12/03/2024 9:00 AM EDT [facility] # Lymphs 0.37(L) 1.18 - 3.74 K/ L 12/03/2024 9:00 AM EDT [facility] # Monos 0.18(L) 0.24 - 0.86 K/ L 12/03/2024 9:00 AM EDT [facility] # Eos <0.03(L) 0.04 - 0.36 K/ L 12/03/2024 9:00 AM EDT [facility] # Baso <0.03 0.01 - 0.08 K/ L 12/03/2024 9:00 AM EDT [facility] Immature Granulocytes-Re lative 0.70(H) 0.01 - 0.43 % 12/03/2024 9:00 AM EDT [facility] # IG <0.03 0.00 - 0.03 K/uL 12/03/2024 9:00 AM EDT [facility] Blood Venipuncture / Unknown 12/03/2024 8:31 AM EDT 12/03/2024 8:40 AM EDT Narrative [facility] - 12/03/2024 9:00 AM EDT When [...] Bai MD LAB BLOOD ORDERABLES Final Result [facility] [address] [phone] * Creatine Kinase (CK) (12/03/2024 7:39 AM EDT) Total CK 55 29 - 168 U/L 12/03/2024 6:19 PM EDT [facility] Blood Venipuncture / Unknown 12/03/2024 7:39 AM EDT 12/03/2024 5:52 PM EDT us Hema Cervantes MD LAB BLOOD ORDERABLES Final Re sult [facility] [address] [phone] * Ammonia (12/03/2024 7:39 AM EDT) Pathologist [facility] Ammonia 36 18 - 72 mol/L 12/03/2024 7:56 AM EDT [facility] Blood Venipuncture / Unknown 12/03/2024 7:39 AM EDT 12/03/2024 7:45 AM EDT Narrative [facility] - 12/03/2024 7:56 AM EDT Specimen slightly hemolyzed us Timothy Bai MD LAB BLOOD ORDERABLES Final Result Performing Organization Address City/[facility]/ZIP Co de Phone Number [facility] [address] [phone] * (ABNORMAL) Comprehensive Metabolic Panel (12/03/2024 7:39 AM EDT) Sodium 147(H) 136 - 145 meq/L 12/03/2024 8:05 AM EDT [facility] Potassium 4.1 3.4 - 5.1 meq/L 12/03/2024 8:05 AM EDT [facility] Chloride 119(H) 98 - 112 meq/L 12/03/2024 8:05 AM EDT [facility] CO2 20(L) 22 - 29 meq/L 12/03/2024 8:05 AM [facility] Calcium 8.3(L) 8.4 - 10.2 mg/dL 12/03/2024 8:05 AM [facility] Glucose 145(H) 82 - 115 mg/dL 12/03/2024 8:05 AM [facility] BUN 53.7(H) 9.8 - 20.1 mg/dL 12/03/2024 8:05 AM [facility] Creatinine 3.48(H) 0.57 - 1.11 mg/dL 12/03/2024 8:05 AM [facility] BUN/Creatinine 15 8 - 20 12/03/2024 8:05 AM [facility] eGFR (mL/min/1.73m2) 14(L) >=60 mL/min/1. 73m2 12/03/2024 8:05 AM [facility] Albumin 4.4 3.5 - 5.0 g/dL 12/03/2024 8:05 AM [facility] Alkaline Phosphatase 49 40 - 150 U/L 12/03/2024 8:05 AM [facility] ALT 7 <=34 U/L 12/03/2024 8:05 AM [facility] Comment: ALT2 reagent used for testing does not contain P5P supplementation and therefore may miss ALT elevations in patients with B6 deficiency. This population may be as high as 10% in the [place], with risk factors including malabsorption, drug interactions, and alcoholic hepatitis. AST 21 11 - 34 U/L 12/03/2024 8:05 AM [facility] Comment: AST2 reagent used for testing does not contain P5P supplementation and therefore may miss AST elevations in patients with B6 deficiency. This population may be as high as 10% in the [place], with risk factors including malabsorption, drug interactions, and alcoholic hepatitis. Total Bilirubin 1.1 0.2 - 1.2 mg/dL 12/03/2024 8:05 AM [facility] Protein, Total 6.8 6.4 - 8.3 g/dL 12/03/2024 8:05 AM [facility] Globulin 2.4(L) 2.5 - 4.1 g/dL 12/03/2024 8:05 AM EDT [facility] Anion Gap 12 4 - 12 12/03/2024 8:05 AM EDT [facility] A/G Ratio 1.8 0.7 - 1.9 12/03/2024 8:05 AM EDT [facility] Osmolality Calc 309.7 mOsm/kg 8:05 AM EDT [facility] Blood Venipuncture / Unknown 12/03/2024 7:39 AM EDT 12/03/2024 7:46 AM EDT Timothy Bai MD LAB BLOOD ORDERABLES Final Result [facility] [address] [phone] * Magnesium (12/03/2024 7:39 AM EDT) Magnesium 2.5 1.6 - 2.6 mg/dL 12/03/2024 8:05 AM EDT [facility] Blood Venipuncture / Unknown 12/03/2024 7:39 AM EDT 12/03/2024 7:46 AM EDT Timothy Bai MD LAB BLOOD ORDERABLES Final Result Performing Organization Address [facility]/ZIP Co de Phone Number [facility] [address] [phone] * (ABNORMAL) Glucose, Nova Meter (12/03/2024 5:13 AM EDT) POC-GLUCOSE 142(H) 70 - 110 mg/dL 12/03/2024 5:15 AM EDT [facility] Comment: In the event of poor peripheral blood flow, venous or arterial blood should be used due to the potential of erroneous results. Protocols Followed [employer] [id number] 12/03/2024 5:15 AM EDT [facility] Blood WHOLE BLOOD / Unknown 12/03/2024 5:13 AM EDT 12/03/2024 5:15 AM EDT Narrative [facility] - 12/03/2024 5:15 AM EDT [employer] Tr[employer] ID is - [id number] us Timothy Bai MD POINT OF CARE TEST ORDERAB LES Final Result Performing Organization Address [facility] Co de Phone Number [facility] [address] [phone] * (ABNORMAL) Glucose, Nova Meter (12/03/2024 1:12 AM EDT) POC-GLUCOSE 168(H) 70 - 110 mg/dL 12/03/2024 1:13 AM EDT [facility] Comment: In the event of poor peripheral blood flow, venous or arterial blood should be used due to the potential of erroneous results. Protocols Followed [employer] [id number] 12/03/2024 1:13 AM EDT [facility] Blood WHOLE BLOOD / Unknown 12/03/2024 1:12 AM EDT 12/03/2024 1:13 AM EDT Narrative [facility] - 12/03/2024 1:13 AM EDT [employer] ID is - [id number] us Timothy Bai MD POINT OF CARE TEST ORDERAB LES Final Result Performing Organization Address [facility] de Phone Number [facility] [address] [phone] * (ABNORMAL) Glucose, Nova Meter (12/03/2024 1:10 AM EDT) POC-GLUCOSE 164(H) 70 - 110 mg/dL 12/03/2024 1:12 AM EDT [facility] Comment: In the event of poor peripheral blood flow, venous or arterial blood should be used due to the potential of erroneous results. Protocols Followed [employer] [id number] 12/03/2024 1:12 AM EDT [facility] Blood WHOLE BLOOD / Unknown 12/03/2024 1:10 AM EDT 12/03/2024 1:12 AM EDT Narrative [facility] - 12/03/2024 1:12 AM EDT [employer] Tr[employer] ID is - [id number] us Timothy Bai MD POINT OF CARE TEST ORDERAB LES Final Result Performing Organization Address City/[facility]/ZIP Co de Phone Number [facility] [address] [place] [address], [facility] [phone] * (ABNORMAL) Hemoglobin (12/02/2024 11:06 PM EDT) Pathologist [facility] Hemoglobin 8.9(L) 11.2 - 15.7 GM/DL 12/02/2024 11:18 PM EDT [facility] Blood Venipuncture / Unknown 12/02/2024 11:06 PM EDT 12/02/2024 11:15 PM EDT us Denilson Hodgson DO LAB BLOOD ORDERABLES Final Res ult Performing Organization Address [facility] Co de Phone Number [facility] [address] [place] [address], [facility] [phone] * (ABNORMAL) Glucose, Nova Meter (12/02/2024 8:06 PM EDT) [facility] POC-GLUCOSE 144(H) 70 - 110 mg/dL 12/02/2024 8:08 PM EDT [facility] Comment: In the event of poor peripheral blood flow, venous or arterial blood should be used due to the potential of erroneous results. Protocols Followed Fishing [employer] Trimmer [id number] 12/02/2024 8:08 PM EDT [facility] Blood WHOLE BLOOD / Unknown 12/02/2024 8:06 PM EDT 12/02/2024 8:08 PM EDT Narrative [facility] - 12/02/2024 8:08 PM EDT Fishing [employer] Trimmer ID is - [id number] us Timothy Bai MD POINT OF CARE TEST ORDERAB LES Final Result Performing Organization Address City/[facility]/ZIP Co de Phone Number [facility] [address] [phone] * (ABNORMAL) Hemoglobin (12/02/2024 6:03 PM EDT) Hemoglobin 9.1(L) 11.2 - 15.7 GM/DL 12/02/2024 6:24 PM EDT [facility] Blood Venipuncture / Unknown 12/02/2024 6:03 PM EDT 12/02/2024 6:19 PM EDT us Timothy Bai MD LAB BLOOD ORDERABLES Final Result [facility] [address] [phone] * (ABNORMAL) Glucose, Nova Meter (12/02/2024 5:18 PM EDT) Pathologist [facility] POC-GLUCOSE 128(H) 70 - 110 mg/dL 12/02/2024 5:21 PM EDT [facility] Comment: In the event of poor peripheral blood flow, venous or arterial blood should be used due to the potential of erroneous results. Notified Nurse RBV [employer]ishing [employer] Trimmer [id number] 12/02/2024 5:21 PM EDT [facility] Blood WHOLE BLOOD / Unknown 12/02/2024 5:18 PM EDT 12/02/2024 5:20 PM EDT Narrative [facility] - 12/02/2024 5:21 PM EDT Fishing [employer] Trimmer ID is - [id number] us Timothy Bai MD POINT OF CARE TEST ORDERAB LES Final Result [facility] [address] [phone] * Transfuse RBC (12/02/2024 5:03 PM EDT) Timothy Bai MD FS_MODEL_IP_BLOOD TRANSFUS ION ORDERABLES Final Result * Transfuse RBC: 1 Units (12/02/2024 5:03 PM EDT) Timothy Bai MD FS_MODEL_IP_BLOOD TRANSFUS ION ORDERABLES Final Result * (ABNORMAL) Glucose, Nova Meter (12/02/2024 12:51 PM EDT) POC-GLUCOSE 112(H) 70 - 110 mg/dL 12/02/2024 12:53 PM EDT [facility] Comment: In the event of poor peripheral blood flow, venous or arterial blood should be used due to the potential of erroneous results. Notified Nurse RBV Fishing [employer] Trimmer [id number] 12/02/2024 12:53 PM EDT [facility] Blood WHOLE BLOOD / Unknown 12/02/2024 12:51 PM EDT 12/02/2024 12:53 PM EDT Narrative [facility] - 12/02/2024 12:53 PM EDT Fishing [employer] Trimmer ID is - [id number] Timothy Bai MD POINT OF CARE TEST ORDERAB LES Final Result [facility] [address] [phone] * CT bone marrow biopsy (12/02/2024 12:24 [...] Pancytopenia. ATTENDING RADIOLOGIST: Dr. Haseeb Gil. PHYSICIAN MOBILE MANAGER: Sandra Ramsey PA-C PROCEDURE: After informed consent [...] Pancytopenia. ATTENDING RADIOLOGIST: Dr. Haseeb Gil. PHYSICIAN MOBILE MANAGER: Sandra Ramsey PA-C PROCEDURE: After informed consent [...] by Sandra Ramsey PA-C. Laura Batista MD IM CT ORDERABLES Final Result * [facility] BONE MARROW SMEAR, ASPIRATION, AND STAIN (12/02/2024 12:06 PM EDT) AP RESULT See Note: [facility] Comment: [facility] [address] [place] [address] or [phone] Joe Carlos M.D., Storekeeper [employer] PATIENT NAME [facility]AT[facility] NO[facility]ARY [facility]IV[facility]. [id number] [facility] AGE SEX SSN CLIENT REF # [id number] F [id number] [address] [place] [address] REQUESTING Aleksandr ATTENDING Aleksandr. COPY TOLAURA PICHARDO DATE COLLECTED DATE RECEIVED DATE REPORTED 12/02/2024 12/02/2024 12/06/2024 ADDENDUM PRESENT ADDENDUM: Cytogenetics shows a normal female karyotype, 46,XX[20]. The original diagnosis remains unchanged. Verified by Heydi Mak M.D., MPH on 12/13/2024 Professional interpretation rendered by Heydi Mak M.D., MPH at [employer], [address] [place] [address]. DIAGNOSIS: PERIPHERAL SMEAR , BONE MARROW ASPIRATION [...] CD38, CD45, CD56, CD57, CD117, CD123, HLA-DR, [place], and Lambda. These tests use analyte specific [...] rendered by Heydi Mak M.D., MPH at [employer], [facility], [address] [place] [address]. GROSS DESCRIPTION: A. Received 1 peripheral blood smear slide for review. B. Received 5 bone marrow aspirate smear slides for review. 4 additional bone marrow aspirate smear slides made at [facility]. C. Received in a purple top tube [...] BY: Heydi Mak M.D., MPH CPT CODES: 92477, 2FLP, 54012, [id number], [id number], 03346, 66492, [id number] Bone Marrow BONE MARROW STRUCTURE / Unknown 12/02/2024 12:06 PM EDT us Laura Batista MD PATHOLOGY/CYTOLOGY ORDERABLES Edited Result - Final PATHOLOGY AND CYTOLOGY LABORATORY [address] * Prepare RBC: 1 Units (12/02/2024 9:36 AM EDT) Issue Date/Time [id number] [facility] BLOOD [facility] [place] Product Identification Red Blood Cells [facility] [place]) Product Code [id number] [facility] [place]) Status Information Transfused [facility] [place] Unit Number [id number] [facility] BLOOD [facility] [place]) Blood Type 5100 [facility] ([place]) Cross Match Results Compatible [facility] ([place]) us Timothy Bai MD FS_MODEL_IP_BLOOD BANK PRO DUCT ORDERABLES Final Result Performing Organization Address [facility]/ZIP Co de Phone Number [facility] ([place]) [address] [place] [address] * (ABNORMAL) Hemoglobin and hematocrit (12/02/2024 7:40 AM EDT) Hemoglobin 7.4(L) 11.2 - 15.7 GM/DL 12/02/2024 9:43 AM EDT [facility] Hematocrit 23.4(L) 34.1 - 44.9 % 12/02/2024 9:43 AM EDT [facility] Blood Venipuncture / Unknown 12/02/2024 7:40 AM EDT 12/02/2024 7:47 AM EDT us Timothy Bai MD LAB BLOOD ORDERABLES Final Result [facility] [address] [place] [address] * (ABNORMAL) Hemoglobin (12/02/2024 7:40 AM EDT) Hemoglobin 7.3(L) 11.2 - 15.7 GM/DL 12/02/2024 7:52 AM EDT [facility] Blood Venipuncture / Unknown 12/02/2024 7:40 AM EDT 12/02/2024 7:47 AM EDT Timothy Bai MD LAB BLOOD ORDERABLES Final Result [facility] [address] [place] [address], [facility] [phone] * (ABNORMAL) Glucose, Nova Meter (12/02/2024 5:04 AM EDT) Pathologist [facility] POC-GLUCOSE 115(H) 70 - 110 mg/dL 12/02/2024 5:06 AM EDT [facility] Comment: In the event of poor peripheral blood flow, venous or arterial blood should be used due to the potential of erroneous results. Notified Nurse RBV Fishing Rod Trimmer [phone] 12/02/2024 5:06 AM EDT [facility] Blood WHOLE BLOOD / Unknown 12/02/2024 5:04 AM EDT 12/02/2024 5:06 AM EDT Narrative [facility] - 12/02/2024 5:06 AM EDT Fishing Rod Trimmer ID is - [id number] Timothy Bai MD POINT OF CARE TEST ORDERAB LES Final Result [facility] [address] [place] [address], [facility] [phone] * (ABNORMAL) Ammonia (12/02/2024 3:38 AM EDT) Ammonia 74(H) 18 - 72 mol/L 12/02/2024 5:20 AM EDT [facility] Blood Venipuncture / Unknown 12/02/2024 3:38 AM EDT 12/02/2024 4:47 AM EDT Narrative [facility] - 12/02/2024 5:20 AM EDT Specimen slightly hemolyzed us Timothy Bai MD LAB BLOOD ORDERABLES Final Result [facility] [address] [phone] * (ABNORMAL) Comprehensive Metabolic Panel (12/02/2024 3:38 AM EDT) Sodium 146(H) 136 - 145 meq/L 12/02/2024 5:30 AM EDT [facility] Potassium 4.2 3.4 - 5.1 meq/L 12/02/2024 5:30 AM EDT [facility] Chloride 118(H) 98 - 112 meq/L 12/02/2024 5:30 AM EDT [facility] CO2 19(L) 22 - 29 meq/L 12/02/2024 5:30 AM EDT [facility] Calcium 7.9(L) 8.4 - 10.2 mg/dL 12/02/2024 5:30 AM EDT [facility] Glucose 107 82 - 115 mg/dL 12/02/2024 5:30 AM EDT [facility] BUN 55.1(H) 9.8 - 20.1 mg/dL 12/02/2024 5:30 AM EDT [facility] Creatinine 3.55(H) 0.57 - 1.11 mg/dL 12/02/2024 5:30 AM EDT [facility] BUN/Creatinine 16 8 - 20 12/02/2024 5:30 AM EDT [facility] eGFR (mL/min/1.73m2) 14(L) >=60 mL/min/1. 73m2 12/02/2024 5:30 AM EDT [facility] Albumin 3.6 3.5 - 5.0 g/dL 12/02/2024 5:30 AM EDT [facility] Alkaline Phosphatase 49 40 - 150 U/L 12/02/2024 5:30 AM EDT [facility] ALT 8 <=34 U/L 12/02/2024 5:30 AM EDT [facility] Comment: ALT2 reagent used for testing does not contain P5P supplementation and therefore may miss ALT elevations in patients with B6 deficiency. This population may be as high as 10% in the [place], with risk factors including malabsorption, drug interactions, and alcoholic hepatitis. AST 32 11 - 34 U/L 12/02/2024 5:30 AM EDT [facility] Comment: AST2 reagent used for testing does not contain P5P supplementation and therefore may miss AST elevations in patients with B6 deficiency. This population may be as high as 10% in the [place], with risk factors including malabsorption, drug interactions, and alcoholic hepatitis. Total Bilirubin 0.9 0.2 - 1.2 mg/dL 12/02/2024 5:30 AM EDT [facility] Protein, Total 6.1(L) 6.4 - 8.3 g/dL 12/02/2024 5:30 AM EDT [facility] Globulin 2.5 2.5 - 4.1 g/dL 12/02/2024 5:30 AM EDT [facility] Anion Gap 13(H) 4 - 12 12/02/2024 5:30 AM EDT [facility] A/G Ratio 1.4 0.7 - 1.9 12/02/2024 5:30 AM EDT [facility] Osmolality Calc 306.2 mOsm/kg 5:30 AM EDT [facility] Blood Venipuncture / Unknown 12/02/2024 3:38 AM EDT 12/02/2024 4:48 AM EDT Narrative [facility] - 12/02/2024 5:30 AM EDT Specimen slightly hemolyzed us Timothy Bai MD LAB BLOOD ORDERABLES Final Result [facility] [address] [phone] * Magnesium (12/02/2024 3:38 AM EDT) Magnesium 2.5 1.6 - 2.6 mg/dL 12/02/2024 5:30 AM EDT [facility] Blood Venipuncture / Unknown 12/02/2024 3:38 AM EDT 12/02/2024 4:48 AM EDT Narrative [facility] - 12/02/2024 5:30 AM EDT Specimen slightly hemolyzed us Timothy Bai MD LAB BLOOD ORDERABLES Final Result [facility] [address] [phone] * (ABNORMAL) CBC - Hemogram (SJ-BKR) (12/02/2024 3:38 AM EDT) [facility] WBC 3.0(L) 4.0 - 10.0 K/ L 12/02/2024 5:08 AM EDT [facility] RBC 2.43(L) 3.93 - 5.22 M/ L 12/02/2024 5:08 AM EDT [facility] Hemoglobin 7.6(L) 11.2 - 15.7 GM/DL 12/02/2024 5:08 AM EDT [facility] Hematocrit 24.2(L) 34.1 - 44.9 % 12/02/2024 5:08 AM EDT [facility] MCV 100(H) 79 - 95 fL 12/02/2024 5:08 AM EDT [facility] MCH 31.3 25.6 - 32.2 pg 12/02/2024 5:08 AM EDT [facility] MCHC 31.4(L) 32.2 - 35.5 GM/DL 12/02/2024 5:08 AM EDT [facility] RDW 17.1(H) 11.7 - 14.4 % 12/02/2024 5:08 AM EDT [facility] Platelets 57(L) 140 - 375 K/CU MM 12/02/2024 5:08 AM EDT [facility] MPV 10.5 9.4 - 12.3 fL 12/02/2024 5:08 AM EDT [facility] Blood Venipuncture / Unknown 12/02/2024 3:38 AM EDT 12/02/2024 4:47 AM EDT us Timothy Bai MD LAB BLOOD ORDERABLES Final Result Performing Organization Address City/[facility]/ZIP Co de Phone Number [facility] [address] [phone] * (ABNORMAL) Hemoglobin (12/02/2024 12:04 AM EDT) Hemoglobin 7.7(L) 11.2 - 15.7 GM/DL 12/02/2024 12:18 AM EDT [facility] Blood Venipuncture / Unknown 12/02/2024 12:04 AM EDT 12/02/2024 12:16 AM EDT Timothy Bai MD LAB BLOOD ORDERABLES Final Result Performing Organization Address [facility] Co de Phone Number [facility] [address] [phone] * (ABNORMAL) Glucose, Nova Meter (12/01/2024 7:34 PM EDT) POC-GLUCOSE 128(H) 70 - 110 mg/dL 12/01/2024 7:35 PM EDT [facility] Comment: In the event of poor peripheral blood flow, venous or arterial blood should be used due to the potential of erroneous results. Notified Nurse RBV Fishing Rod Trimmer [phone] 12/01/2024 7:35 PM EDT [facility] Blood WHOLE BLOOD / Unknown 12/01/2024 7:34 PM EDT 12/01/2024 7:35 PM EDT Narrative [facility] - 12/01/2024 7:35 PM EDT Fishing Rod Trimmer ID is - [id number] us Timothy Bai MD POINT OF CARE TEST ORDERAB LES Final Result [facility] [address] [place] [address], [facility] [phone] * (ABNORMAL) Glucose, Nova Meter (12/01/2024 4:25 PM EDT) POC-GLUCOSE 115(H) 70 - 110 mg/dL 12/01/2024 4:26 PM EDT [facility] Comment: In the event of poor peripheral blood flow, venous or arterial blood should be used due to the potential of erroneous results. Notified Nurse RBV Fishing Rod Trimmer [phone] 12/01/2024 4:26 PM EDT [facility] Blood WHOLE BLOOD / Unknown 12/01/2024 4:25 PM EDT 12/01/2024 4:26 PM EDT Narrative [facility] - 12/01/2024 4:26 PM EDT Fishing Rod Trimmer ID is - [id number] us Timothy Bai MD POINT OF CARE TEST ORDERAB LES Final Result Performing Organization Address [facility]/ZIP Co de Phone Number [facility] [address] [place] [address], [facility] [phone] * (ABNORMAL) Hemoglobin (12/01/2024 3:33 PM EDT) [facility] Hemoglobin 8.0(L) 11.2 - 15.7 GM/DL 12/01/2024 4:03 PM EDT [facility] Blood Venipuncture / Unknown 12/01/2024 3:33 PM EDT 12/01/2024 4:00 PM EDT Timothy Bai MD LAB BLOOD ORDERABLES Final Result Performing Organization Address [facility]/ZIP Co de Phone Number [facility] [address] [place] [address], [facility] [phone] * Glucose, Nova Meter (12/01/2024 10:32 AM EDT) [facility] POC-GLUCOSE 100 70 - 110 mg/dL 12/01/2024 10:33 AM EDT [facility] Comment: In the event of poor peripheral blood flow, venous or arterial blood should be used due to the potential of erroneous results. Notified Nurse RBV Fishing Rod Trimmer [phone] 12/01/2024 10:33 AM EDT [facility] Blood WHOLE BLOOD / Unknown 12/01/2024 10:32 AM EDT 12/01/2024 10:33 AM EDT Narrative [facility] - 12/01/2024 10:33 AM EDT Fishing Rod Trimmer ID is - [id number] us Timothy Bai MD POINT OF CARE TEST ORDERAB LES Final Result Performing Organization Address [facility] Co de Phone Number [facility] [address] [phone] * Transfuse RBC (12/01/2024 9:18 AM EDT) us Denilson Hodgson DO FS_MODEL_IP_BLOOD TRANSFUSION ORDERABLES Final Result * Transfuse RBC: 1 Units (12/01/2024 9:18 AM EDT) us Denilson Hodgson DO FS_MODEL_IP_BLOOD TRANSFUSION ORDERABLES Final Result * Glucose, Nova Meter (12/01/2024 8:12 AM EDT) [facility] POC-GLUCOSE 103 70 - 110 mg/dL 12/01/2024 8:14 AM EDT [facility] Comment: In the event of poor peripheral blood flow, venous or arterial blood should be used due to the potential of erroneous results. Protocols Followed Fishing [employer] Trimmer [id number] 12/01/2024 8:14 AM EDT [facility] Blood WHOLE BLOOD / Unknown 12/01/2024 8:12 AM EDT 12/01/2024 8:14 AM EDT [facility]ORATORY - 12/01/2024 8:14 AM EDT Fishing Rod Trimmer ID is - [id number] us Timothy Bai MD POINT OF CARE TEST ORDERAB LES Final Result [facility] [address] [place] [address], [facility] [phone] * Type and Screen (12/01/2024 7:08 AM EDT) ABO/Rh O Positive 12/01/2024 4:53 AM EDT [facility]OD [place] [place] Antibody Screen Negative 12/01/2024 4:53 AM EDT [facility] ([place]) HISTCHK HIST CHECK PERFORMED 12/01/2024 4:53 AM EDT [facility] ([place]) Blood Venipuncture / Unknown 12/01/2024 7:08 AM EDT 12/01/2024 7:15 AM EDT us Denilson Hodgson DO [facility] BLOOD BANK TEST ORDERABLES Final Result Performing Organization Address [facility] Number [facility] ([place]) [address] [place] [address] * Glucose, Nova Meter (12/01/2024 5:37 AM EDT) [facility] POC-GLUCOSE 107 70 - 110 mg/dL 12/01/2024 5:39 AM EDT [facility] Comment: In the event of poor peripheral blood flow, venous or arterial blood should be used due to the potential of erroneous results. Notified Nurse RBV Fishing Rod Trimmer [id number] 12/01/2024 5:39 AM EDT [facility] Blood WHOLE BLOOD / Unknown 12/01/2024 5:37 AM EDT 12/01/2024 5:39 AM EDT Narrative [facility] - 12/01/2024 5:39 AM EDT Fishing Rod Trimmer ID is - [id number] us Timothy Bai MD POINT OF CARE TEST ORDERAB LES Final Result Performing Organization Address [facility] Co de Phone Number [facility] [address] [place] [address], [facility] [phone] * Prepare RBC: 1 Units (12/01/2024 4:53 AM EDT) Issue Date/Time [id number] [facility] ([place] Product Identification Red Blood Cells [facility] [place]) Product Code [id number] [facility] ([place]) Status Information Transfused [facility] ([place] Unit Number [id number] [facility] ([place] Blood Type 5100 [facility] ([place] Cross Match Results Compatible [facility] ([place]) us Denilson Hodgson DO FS_MODEL_IP_BLOOD BANK PRODUCT ORDERABLES Final Result Performing Organization Address City/[facility]/ZIP Co de Phone Number [facility] ([place]) 1 [facility] [place] [address], [facility] [phone] * ABO/RH Confirmation/Retype (12/01/2024 4:06 AM EDT) RETYPE O Positive 12/01/2024 5:15 AM EDT [facility] ([place]) Comment:[id number] Blood Venipuncture / Unknown 12/01/2024 4:06 AM EDT 12/01/2024 5:14 AM EDT us Timothy Bai MD [facility] BLOOD BANK TEST ORDERA BLES Final Result [facility] ([place]) 1 [facility] [place] [address], [facility] [phone] * (ABNORMAL) Ammonia (12/01/2024 4:06 AM EDT) Ammonia 75(H) 18 - 72 mol/L 12/01/2024 4:49 AM EDT [facility] Blood Venipuncture / Unknown 12/01/2024 4:06 AM EDT 12/01/2024 4:13 AM EDT us Timothy Bai MD LAB BLOOD ORDERABLES Final Result [facility] [address] [phone] * (ABNORMAL) CBC - Hemogram (SJ-BKR) (12/01/2024 4:06 AM EDT) WBC 1.7(LL) 4.0 - 10.0 K/ L 12/01/2024 4:43 AM EDT [facility] RBC 2.15(L) 3.93 - 5.22 M/ L 12/01/2024 4:43 AM EDT [facility] Hemoglobin 6.7(L) 11.2 - 15.7 GM/DL 12/01/2024 4:43 AM EDT [facility] Hematocrit 21.6(L) 34.1 - 44.9 % 12/01/2024 4:43 AM EDT [facility] MCV 101(H) 79 - 95 fL 12/01/2024 4:43 AM EDT [facility] MCH 31.2 25.6 - 32.2 pg 12/01/2024 4:43 AM EDT [facility] MCHC 31.0(L) 32.2 - 35.5 GM/DL 12/01/2024 4:43 AM EDT [facility] RDW 16.2(H) 11.7 - 14.4 % 12/01/2024 4:43 AM EDT [facility] Platelets 54(L) 140 - 375 K/CU MM 12/01/2024 4:43 AM EDT [facility] MPV 10.6 9.4 - 12.3 fL 12/01/2024 4:43 AM EDT [facility] Blood Venipuncture / Unknown 12/01/2024 4:06 AM EDT 12/01/2024 4:12 AM EDT us Timothy Bai MD LAB BLOOD ORDERABLES Final Result [facility] [address] [place] [address], [facility] [phone] * (ABNORMAL) Comprehensive Metabolic Panel (12/01/2024 4:05 AM EDT) Sodium 145 136 - 145 meq/L 12/01/2024 5:01 AM EDT [facility] Potassium 4.2 3.4 - 5.1 meq/L 12/01/2024 5:01 AM [facility] Chloride 116(H) 98 - 112 meq/L 12/01/2024 5:01 AM [facility] CO2 20(L) 22 - 29 meq/L 12/01/2024 5:01 AM [facility] Calcium 8.0(L) 8.4 - 10.2 mg/dL 12/01/2024 5:01 AM [facility] Glucose 120(H) 82 - 115 mg/dL 12/01/2024 5:01 AM [facility] BUN 68.3(H) 9.8 - 20.1 mg/dL 12/01/2024 5:01 AM [facility] Creatinine 4.13(H) 0.57 - 1.11 mg/dL 12/01/2024 5:01 AM [facility] BUN/Creatinine 17 8 - 20 12/01/2024 5:01 AM [facility] eGFR (mL/min/1.73m2) 12(L) >=60 mL/min/1. 73m2 12/01/2024 5:01 AM [facility] Albumin 2.8(L) 3.5 - 5.0 g/dL 12/01/2024 5:01 AM [facility] Alkaline Phosphatase 61 40 - 150 U/L 12/01/2024 5:01 AM [facility] ALT 15 <=34 U/L 12/01/2024 5:01 AM [facility] Comment: ALT2 reagent used for testing does not contain P5P supplementation and therefore may miss ALT elevations in patients with B6 deficiency. This population may be as high as 10% in the [place], with risk factors including malabsorption, drug interactions, and alcoholic hepatitis. AST 26 11 - 34 U/L 12/01/2024 5:01 AM EDT [facility] Comment: AST2 reagent used for testing does not contain P5P supplementation and therefore may miss AST elevations in patients with B6 deficiency. This population may be as high as 10% in the [place], with risk factors including malabsorption, drug interactions, and alcoholic hepatitis. Total Bilirubin 0.5 0.2 - 1.2 mg/dL 12/01/2024 5:01 AM EDT [facility] Protein, Total 5.7(L) 6.4 - 8.3 g/dL 12/01/2024 5:01 AM EDT [facility] Globulin 2.9 2.5 - 4.1 g/dL 12/01/2024 5:01 AM EDT [facility] Anion Gap 13(H) 4 - 12 12/01/2024 5:01 AM EDT [facility] A/G Ratio 1.0 0.7 - 1.9 12/01/2024 5:01 AM EDT [facility] Osmolality Calc 309.8 mOsm/kg 5:01 AM EDT [facility] Blood Venipuncture / Unknown 12/01/2024 4:05 AM EDT 12/01/2024 4:13 AM EDT Timothy Bai MD LAB BLOOD ORDERABLES Final Result Performing Organization Address City/State/[facility] Co de Phone Number [facility] [address] [phone] * (ABNORMAL) Magnesium (12/01/2024 4:05 AM EDT) Magnesium 2.7(H) 1.6 - 2.6 mg/dL 12/01/2024 4:57 AM EDT [facility] Blood Venipuncture / Unknown 12/01/2024 4:05 AM EDT 12/01/2024 4:13 AM EDT us Timothy Bai MD LAB BLOOD ORDERABLES Final Result [facility] [address] [place] [address], [facility] [phone] * Glucose, Nova Meter (11/30/2024 7:38 PM EDT) POC-GLUCOSE 106 70 - 110 mg/dL 11/30/2024 7:39 PM EDT [facility] Comment: In the event of poor peripheral blood flow, venous or arterial blood should be used due to the potential of erroneous results. Notified Nurse RBV Fishing Rod Trimmer [phone] 11/30/2024 7:39 PM EDT [facility] Blood WHOLE BLOOD / Unknown 11/30/2024 7:38 PM EDT 11/30/2024 7:39 PM EDT [facility]ORATORY - 11/30/2024 7:39 PM EDT Fishing Rod Trimmer ID is - [id number] us Timothy Bai MD POINT OF CARE TEST ORDERAB LES Final Result [facility] [address] [place] [address], [facility] [phone] * Glucose, Nova Meter (11/30/2024 6:22 PM EDT) Pathologist [facility] POC-GLUCOSE 107 70 - 110 mg/dL 11/30/2024 6:25 PM EDT [facility] Comment:In the event of poor peripheral blood flow, venous or arterial blood should be used due to the potential of erroneous results. Fishing [employer] Trimmer [id number] 11/30/2024 6:25 PM EDT [facility] Blood WHOLE BLOOD / Unknown 11/30/2024 6:22 PM EDT 11/30/2024 6:25 PM EDT [facility] LABORAT[facility] - 11/30/2024 6:25 PM EDT Fishing Rod Trimmer ID is - [id number] us Timothy Bai MD POINT OF CARE TEST ORDERAB LES Final Result [facility] [address] [place] [address], [facility] [phone] * Ultrasound renal limited (11/30/2024 4:19 PM [...] Ascites ATTENDING PHYSICIAN: Dr. Haseeb Gil PHYSICIAN MOBILE MANAGER: Gabriel Velasco PA-C FINDINGS: After informed consent [...] Ascites ATTENDING PHYSICIAN: Dr. Haseeb Gil PHYSICIAN MOBILE MANAGER: Gabriel Velasco PA-C FINDINGS: After informed consent [...] Gabriel Velasco PA-C. us Huey Hurtado MD [facility] US ORDERABLES Final Result * Protein, body fluid (11/30/2024 4:03 PM EDT) Protein, Fluid 1.9 See Comment g/dL 12/01/2024 7:10 AM EDT [facility] BODY FLUID TYPE Peritoneal 12/01/2024 7:10 AM EDT [facility] Body Fluid PERITONEAL FLUID / Unknown 11/30/2024 4:03 PM EDT 12/01/2024 6:52 AM EDT Narrative [facility] - 12/01/2024 7:10 AM EDT This test has been modified from the motorcycle racer's instructions and its performance characteristics were determined by the laboratory. The reference intervals and other method performance specifications are unavailable for this test. It is recommended to interpret body fluid concentrations in comparison with the corresponding serum or plasma concentrations and to integrate test results into the clinical context. Timothy Bai MD BODY FLUIDS AND STOOLS ORD ERABLES Final Result Performing Organization Address [facility] de Phone Number [facility] [address] [phone] * Glucose, body fluid (11/30/2024 4:03 PM EDT) Glucose, Body Fluid 107 See Comment mg/dL 12/01/2024 7:10 AM EDT [facility] BODY FLUID TYPE Peritoneal 12/01/2024 7:10 AM EDT [facility] Body Fluid PERITONEAL FLUID / Unknown 11/30/2024 4:03 PM EDT 12/01/2024 6:52 AM EDT Narrative [facility] - 12/01/2024 7:10 AM EDT This test has been modified from the motorcycle racer's instructions and its performance characteristics were determined by the laboratory. The reference intervals and other method performance specifications are unavailable for this test. It is recommended to interpret body fluid concentrations in comparison with the corresponding serum or plasma concentrations and to integrate test results into the clinical context. Timothy Bai MD BODY FLUIDS AND STOOLS ORD ERABLES Final Result Performing Organization Address [facility] Co de Phone Number [facility] [address] [phone] * Body Fluid/CSF - Path Review (SJ) (11/30/2024 4:03 PM EDT) SENT TO PATHOLOGY FOR REVIEW Yes 12/03/2024 6:54 AM EDT [facility] Scan Result Mesothelial cells. MD German 12/02/2024 12/03/2024 6:54 AM EDT [facility] Peritoneal Fluid BODY FLUID / Unknown 11/30/2024 4:03 PM EDT 11/30/2024 4:33 PM EDT us Huey Hurtado MD BODY FLUIDS AND STOOLS ORDERABLE S Final Result [facility] [address] [phone] * DIFFERENTIAL, BODY FLUID (11/30/2024 4:03 PM EDT) Neutrophils Fluid 5 0 - 25 % 025 8:49 PM EDT [facility] Lymphocytes Fluid 46 % 025 8:49 PM EDT [facility] Unidentified Mononuclear Cells BF 49 0 - 0 % 11/30/2024 8:49 PM EDT [facility] Peritoneal Fluid BODY FLUID / Unknown 11/30/2024 4:03 PM EDT 11/30/2024 4:33 PM EDT us Huey Hurtado MD BODY FLUIDS AND STOOLS ORDERABLE S Final Result [facility] [address] [phone] * [facility] Non-Dairy Nutrition Specialist Cytology (11/30/2024 4:03 PM EDT) AP RESULT See Note: [facility] Comment: [facility] [address] [place] [address] or [phone] Joe Carlos M.D., Storekeeper Steward PATIENT NAME LABORATORY NO. [id number] MARY GRA. [id number] AGE SEX SSN CLIENT REF # [facility] Elisha 1960 F [id number] [facility] REQUESTING Aleksandr ATTENDING Aleksandr. [place] [address] HUEY HURTADO DATE COLLECTED DATE RECEIVED DATE REPORTED 11/30/2024 12/01/2024 12/02/2024 DIAGNOSIS: PERITONEAL FLUID: Negative for malignant cells. MICROSCOPIC DESCRIPTION: Scattered mesothelial cells and chronic inflammatory cells are present. Professional interpretation rendered by John Sanchez M.D., Radu.Jose Guadalupe.A.P. at [email or web address], [address] [place] [address]. CLINICAL HISTORY: Melena Anasarca Acute renal failure SPECIMENS SUBMITTED: PERITONEAL FLUID GROSS SPECIMEN DESCRIPTION: 40 ccs of hazy, light yellow fluid, scant sediment, received in fixative ThinPrep slides prepared. Cell block has been examined. LITERACY EDUCATION PROFESSOR: SVITLANA HERNANDEZ (ASCP) REVIEWED, DIAGNOSED AND ELECTRONICALLY SIGNED BY: John Sanchez M.D., F.C.A.P. CPT CODES: 73847, [id number] Peritoneal Fluid BODY FLUID / Unknown 11/30/2024 4:03 PM EDT us Huey Hurtado MD PATHOLOGY/CYTOLOGY ORDERABLES Fi nal Result [facility] [address] [place] [address] * Anaerobic Culture (11/30/2024 4:03 PM EDT) Result No Anaerobic growth 12/05/2024 6:34 AM EDT [facility] Peritoneal Fluid BODY FLUID / Unknown 11/30/2024 4:03 PM EDT 11/30/2024 4:34 PM EDT Narrative [facility] - 12/05/2024 6:34 AM EDT Specimen Description: peritoneal fluid us Huey Hurtado MD MICROBIOLOGY - GENERAL ORDERABLE S Final Result [facility] [address] [phone] * Body Fluid Culture + Gram Stain (11/30/2024 4:03 PM EDT) Result No growth 12/03/2024 9:07 AM EDT [facility] Gram Stain Result No organisms seen 12/03/2024 9:07 AM EDT [facility] Gram Stain Result No cells seen 12/03/2024 9:07 AM EDT [facility] Peritoneal Fluid BODY FLUID / Unknown 11/30/2024 4:03 PM EDT 11/30/2024 4:34 PM EDT Narrative [facility] - 12/03/2024 9:07 AM EDT Specimen Description: peritoneal fluid us Huey Hurtado MD MICROBIOLOGY - GENERAL ORDERABLE S Final Result Performing Organization Address [facility]/ZIP Co de Phone Number [facility] [address] [phone] * (ABNORMAL) Body fluid cell count with differential (11/30/2024 4:03 PM EDT) Appearance Cloudy(A) Clear 11/30/2024 8:49 PM EDT [facility] Color Yellow 11/30/2024 8:49 PM EDT [facility] BODY FLUID TYPE Peritoneal 11/30/2024 8:49 PM EDT [facility] Auto WBC/Nucleated Cells BF 85 /uL 11/30/2024 8:49 PM EDT [facility] Comment: Please refer to specific WBC/Nucleated Cell Count Body Fluid reference ranges below: For Pleural: 0-1000 Peritoneal: 0-1000 Pericardial:0-1000 Synovial: 0-200 Auto RBC BF <3,000 /uL 11/30/2024 8:49 PM EDT [facility] Comment: Please refer to specific RBC Cell Count Body Fluid reference ranges below: Pleural: 0-10,000 Peritoneal: 0-10,000 Pericardial:0-10,000 Synovial:0-30 Peritoneal Fluid BODY FLUID / Unknown 11/30/2024 4:03 PM EDT 11/30/2024 4:33 PM EDT Narrative [facility] - 11/30/2024 8:49 PM EDT There is normally no readily obtainable pleural, peritoneal and pericardial fluid, hence normal elements for these potential fluids are not defined. us Huey Hurtado MD BODY FLUIDS AND STOOLS ORDERABLE S Final Result Performing Organization Address [facility] Co de Phone Number [facility] [address] [phone] * Lactate dehydrogenase (LDH), body fluid (11/30/2024 4:03 PM EDT) LDH, Fluid 71 See Comment U/L 11/30/2024 6:19 PM EDT [facility] BODY FLUID TYPE Peritoneal 11/30/2024 6:19 PM EDT [facility] Peritoneal Fluid BODY FLUID / Unknown 11/30/2024 4:03 PM EDT 11/30/2024 4:33 PM EDT [facility] - 11/30/2024 6:19 PM EDT This test has been modified from the motorcycle racer's instructions and its performance characteristics were determined [...] Organization Address [facility] Co de Phone Number [facility] [address] [place] [address], [facility] [phone] * Protein / creatinine ratio, urine (11/30/2024 11:35 AM EDT) Creatinine, Ur 62.00 47.00 - 110.00 mg/dL 11/30/2024 12:36 PM EDT [facility] Protein Creatinine Ratio 0.19 <=0.20 11/30/2024 12:36 PM EDT [facility] Protein, Urine 12 1 - 14 mg/dL 11/30/2024 12:36 PM EDT [facility] Urine 11/30/2024 11:3 5 AM EDT 11/30/2024 12:15 PM EDT Hill Boo MD URINE ORDERABLES Final Result Performing Organization Address City/[facility]/ZIP Co de Phone Number [facility] [address] [phone] * Urea Nitrogen, random urine (11/30/2024 11:35 AM EDT) Urea Nitrogen, Ur 305 mg/dL 11/30/2024 12:36 PM EDT [facility] Comment:Reference Range not established Urine 11/30/2024 11:3 5 AM EDT 11/30/2024 12:15 PM EDT us Hill Boo MD URINE ORDERABLES Final Result Performing Organization Address [facility]/ZIP Co de Phone Number [facility] [address] [phone] * Sodium, random urine (11/30/2024 11:35 AM EDT) Sodium Urine 83 See Comment meq/L 11/30/2024 12:36 PM EDT [facility] Comment:Reference Range not established Urine 11/30/2024 11:3 5 AM EDT 11/30/2024 12:15 PM EDT Hill Boo MD URINE ORDERABLES Final Result Performing Organization Address [facility] Co de Phone Number [facility] [address] [phone] * (ABNORMAL) Urinalysis Microscopic Only (11/30/2024 11:35 AM EDT) WBC, UA 21-50(A) None Seen /HPF 11/30/2024 12:06 PM EDT [facility] RBC, UA 0-2(A) None Seen /HPF 11/30/2024 12:06 PM EDT [facility] Bacteria, UA 1+(A) None Seen, Trace 11/30/2024 12:06 PM EDT [facility] Mucus 1+(A) None Seen 11/30/2024 12:06 PM EDT [facility] SQUAMOUS EPITHELIAL 3-5(A) None Seen /HPF 11/30/2024 12:06 PM EDT [facility] HYALINE CASTS 21-50(A) None Seen /LPF 11/30/2024 12:06 PM EDT [facility] Urine URINE SPECIMEN COLLECTION, CLEAN CATCH / Unknown 11/30/2024 11:35 AM EDT 11/30/2024 11:41 AM EDT us Destiney Llanes [employer] PRODUCTION URINE ORDERABLES Final Resu lt [facility] [address] [phone] * Urine Culture (11/30/2024 11:35 AM EDT) Result Recollect Specimen - 3 or more organisms suggests contamination 12/01/2024 6:49 AM EDT [facility] Urine URINE SPECIMEN COLLECTION, CLEAN CATCH / Unknown 11/30/2024 11:35 AM EDT 11/30/2024 11:41 AM EDT us Destiney Llanes APRN MICROBIOLOGY - GENERAL ORDE RABLES Final Result [facility] [address] [phone] * (ABNORMAL) Urinalysis, Reflex Microscopic and Culture If Indicated (11/30/2024 11:35 AM EDT) Color, UA Light Yellow 11/30/2024 12:06 PM EDT [facility] Clarity, UA Turbid(A) Clear 11/30/2024 12:06 PM EDT [facility] Specific [place], UA 1.011 1.005 - 1.030 11/30/2024 12:06 PM EDT [facility] pH, UA 5.0(L) 6.0 - 8.0 11/30/2024 12:06 PM EDT [facility] Leukocytes, UA 500 Félix/uL(A) Negative 11/30/2024 12:06 PM EDT [facility] Nitrite, UA Negative Negative 11/30/2024 12:06 PM EDT [facility] Protein, UA Negative Negative 11/30/2024 12:06 PM EDT [facility] Glucose, UA Normal Normal 11/30/2024 12:06 PM EDT [facility] Ketones, UA Negative Negative 11/30/2024 12:06 PM EDT [facility] Bilirubin, UA Negative Negative 11/30/2024 12:06 PM EDT [facility] Blood, UA Negative Negative 11/30/2024 12:06 PM EDT [facility] Urobilinogen, UA Normal Normal 11/30/2024 12:06 PM EDT [facility] Specimen Source Urine, Clean Catch 11/30/2024 12:06 PM EDT [facility] Urine URINE SPECIMEN COLLECTION, CLEAN CATCH / Unknown 11/30/2024 11:35 AM EDT 11/30/2024 11:41 AM EDT us Destiney Llanes [employer] [address] PRODUCTION URINE ORDERABLES Final Resu lt [facility] [address] [phone] * XR chest AP portable (11/30/2024 11:29 [...] by Marielos Sotelo PA-C. Destiney Llanes APRN [facility] Final Result * (ABNORMAL) Monoclonal Protein [...] Immunofixation MAEGAN Done 12/03/2024 12:57 PM EDT [facility] Immunoglobulin G 1484 768 - 1632 mg/dL 12/03/2024 12:57 PM EDT [facility] Immunoglobulin A 686(H) 68 - 408 mg/dL 12/03/2024 12:57 PM EDT [facility] Immunoglobulin M 126 35 - 263 mg/dL 12/03/2024 12:57 PM EDT [facility] Monoclonal Protein Not Applicable <=0.00 g/dL 12/03/2024 12:57 PM EDT [facility] [place] Qnt Free Light Chains 173.10(H) 3.30 - 19.40 mg/L 12/03/2024 12:57 PM EDT [facility] Comment: INTERPRETIVE INFORMATION: [place] Qnt Free Light Chains Undetected antigen excess is a rare event but cannot be excluded. Free light chain results should always be interpreted in conjunction with other clinical and laboratory findings. [place] Qnt Free Light Chains 123.84(H) 5.71 - 26.30 mg/L 12/03/2024 12:57 PM EDT [facility] Comment: INTERPRETIVE INFORMATION: Lambda Qnt Free Light Chains Undetected antigen excess is a rare event but cannot be excluded. Free light chain results should always be interpreted in conjunction with other clinical and laboratory findings. [place]/Lambda Free Light Chain Ratio 1.40 0.26 - 1.65 12/03/2024 12:57 PM EDT [facility] SPEP/MAEGAN Interpretation See Note 12/03/2024 12:57 PM EDT [facility] Comment: Restricted band in the beta [...] Serum See Note 12/03/2024 12:57 PM EDT [facility] Comment: Authorized individuals can access the [facility] Enhanced Report with an ReplySend Connect account using the following link. Your local lab can assist you in obtaining the patient report if you don't have a Connect account. [email or web address] Performed By: [employer] [address] [place] [id number] Community Outreach Director: Lalo Mortensen MD, PhD CLIA Number: [id number] Blood Venipuncture / Unknown 11/30/2024 11:01 AM EDT 11/30/2024 12:17 PM EDT Hill Boo MD LAB [place]LOOD [place] [address], [facility] [phone] * Alpha Fetoprotein Tumor Marker(SENDOUT) (11/30/2024 11:01 AM EDT) Alpha Fetoprotein Tumor Marker 2 0 - 9 ng/mL 12/01/2024 3:41 PM EDT [facility] Comment: INTERPRETIVE INFORMATION: Alpha Fetoprotein Tumor Marker [...] reference intervals for this test in the ReplySend Laboratory Test Directory (Tagent). Performed By: [facility] [employer] [address] [place] [id number] Community Outreach Director: Lalo Mortensen MD, PhD CLIA Number: [id number] Blood Venipuncture / Unknown 11/30/2024 11:01 AM EDT 11/30/2024 11:06 AM EDT Destiney Llanes APRN LAB BLOOD [place] [address], [facility] [phone] * Glucose, Nova Meter (11/30/2024 10:46 AM EDT) [facility] POC-GLUCOSE 102 70 - 110 mg/dL 11/30/2024 10:47 AM EDT [facility] Comment: In the event of poor peripheral blood flow, venous or arterial blood should be used due to the potential of erroneous results. Notified Nurse RBV Fishing Rod Trimmer [phone] 11/30/2024 10:47 AM EDT [facility] Blood WHOLE BLOOD / Unknown 11/30/2024 10:46 AM EDT 11/30/2024 10:47 AM EDT Narrative [facility] - 11/30/2024 10:47 AM EDT Fishing Rod Trimmer ID is - [id number] Timothy Bai MD POINT OF CARE TEST ORDERAB LES Final Result Performing Organization Address City/[facility]/ZIP Co de Phone Number [facility] [address] [phone] * (ABNORMAL) Vitamin D, 25-Hydroxy (11/30/2024 8:20 AM EDT) [facility] Vitamin D 25-Hydroxy 22.0(L) 30 - 80 ng/mL 11/30/2024 9:48 AM EDT [facility] Blood Venipuncture / Unknown 11/30/2024 8:20 AM EDT 11/30/2024 9:08 AM EDT Timothy Bai MD LAB BLOOD ORDERABLES Final Result [facility] [address] [phone] * Hemoglobin A1c (11/30/2024 8:20 AM EDT) Hemoglobin A1C 4.9 4.0 - 5.6 % 11/30/2024 9:17 AM EDT [facility] Comment: Hemoglobin A1C levels are related to mean glucose during the preceding 2-3 months. Less than 7% demonstrates glycemic control in diabetic patients. Hemoglobin AlC % Suggested Diagnosis > or = 6.5 Diabetic 5.7 - 6.4 Prediabetic <5.7 Non-diabetic eAVG Glucose 93.93 70 - 126 mg/dL 11/30/2024 9:17 AM EDT [facility] Blood Venipuncture / Unknown 11/30/2024 8:20 AM EDT 11/30/2024 9:07 AM EDT us Huey Hurtado MD LAB BLOOD ORDERABLES Final Resul t [facility] [address] [phone] * ECHO COMPLETE (DOPPLER / COLOR) WO CONTRAST (11/30/2024 7:50 AM EDT) Anatomical Region Laterality Modality Heart Vascular Ultraso und 11/30/2024 7:25 AM EDT Narrative 11/30/2024 10:46 AM EDT TRANSTHORACIC ECHOCARDIOGRAPHY REPORT Demographics Patient Name: RIN JONES : 1960 Age: 64 year(s) Corporate ID Number: [id number] Gender Female Postpartum Nurse: Giovanna Rock Height: 67 inches [facility] Referring Physician: HUEY HURTADO Weight: 225 pounds [...] 1.35 m/s E/A ratio: 0.97 m/s Volume gyzhjslyf032.99 LV length: 8.51 cm ml Volume krknhaik51.96 ml LVOT diameter: 1.79 cm Normal sized [...] Valve TR velocity: 2.51 m/s TR gradient: 25.83516 mmHg Estimated RAP: 3 mmHg RVSP: 28.12 [...] 1960 Age: 64 year(s) Corporate ID Number: [id number] Gender Female Postpartum Nurse: Giovanna Rock Height: 67 inches [facility] Referring Physician: HUEY HURTADO Weight: 225 pounds [...] 1.35 m/s E/A ratio: 0.97 m/s Volume hcgntpiba421.99 LV length: 8.51 cm ml Volume brurcguv81.96 ml LVOT diameter: 1.79 cm Normal sized [...] Valve TR velocity: 2.51 m/s TR gradient: 25.38285 mmHg Estimated RAP: 3 mmHg RVSP: 28.12 [...] 70 - 110 mg/dL 11/30/2024 5:17 AM T [facility] Comment: In the event of poor peripheral blood flow, venous or arterial blood should be used due to the potential of erroneous results. Protocols Followed Fishing Rod Trimmer [phone] 11/30/2024 5:17 AM [facility] Blood WHOLE BLOOD / Unknown 11/30/2024 5:13 AM EDT 11/30/2024 5:17 AM EDT Narrative [facility] - 11/30/2024 5:17 AM EDT Fishing Rod Trimmer ID is - [id number] us Albert Garcia MD POINT OF CARE TEST ORDERABLES Fi nal Result Performing Organization Address [facility]/ZIP Co de Phone Number [facility] [address] [phone] * Blood Culture (11/30/2024 3:42 AM EDT) Result No growth in 5 days 12/05/2024 5:01 AM EDT [facility] Blood ENTIRE RIGHT UPPER ARM / Unknown Venipuncture / Unknown 11/30/2024 3:42 AM EDT 11/30/2024 4:09 AM EDT us Huey Hurtado MD MICROBIOLOGY - GENERAL ORDERABLE S Final Result Performing Organization Address [facility]/ZIP Co de Phone Number [facility] [address] [phone] * Folate, Serum (11/30/2024 3:40 AM EDT) Folate 7.0 7.0 - 31.4 ng/mL 11/30/2024 6:08 PM EDT [facility] Blood Venipuncture / Unknown 11/30/2024 3:40 AM EDT 11/30/2024 4:09 AM EDT us Laura Batista MD LAB BLOOD ORDERABLES Final Res ult Performing Organization Address [facility]/ZIP Co de Phone Number [facility] [address] [phone] * (ABNORMAL) Iron and TIBC (11/30/2024 3:40 AM EDT) Iron 63 50 - 170 ug/dL 11/30/2024 6:13 PM EDT [facility] TIBC 183(L) 250 - 435 ug/dL 11/30/2024 6:13 PM EDT [facility] % Saturation 34 % 11/30/2024 6:13 PM EDT [facility] UIBC 120 11/30/2024 6:13 PM EDT [facility] Blood Venipuncture / Unknown 11/30/2024 3:40 AM EDT 11/30/2024 4:09 AM EDT us Laura Batista MD LAB BLOOD ORDERABLES Final Res ult Performing Organization Address [facility] Co hi Phone Number [facility] [address] [phone] * Ferritin (11/30/2024 3:40 AM EDT) Ferritin 168.51 4.63 - 204.00 ng/mL 11/30/2024 6:08 PM EDT [facility] Blood Venipuncture / Unknown 11/30/2024 3:40 AM EDT 11/30/2024 4:09 AM EDT us Laura Batista MD LAB BLOOD ORDERABLES Final Res ult Performing Organization Address [facility] Phone Number [facility] [address] [phone] * (ABNORMAL) Lactate dehydrogenase (LDH) (11/30/2024 3:40 AM EDT) LDH 261(H) 125 - 220 U/L 11/30/2024 12:18 PM EDT [facility] Blood Venipuncture / Unknown 11/30/2024 3:40 AM EDT 11/30/2024 4:09 AM EDT us Hill Boo MD LAB BLOOD ORDERABLES Final Resu lt Performing Organization Address [facility]/State/ZIP Co de Phone Number [facility] [address] [phone] * (ABNORMAL) Creatine Kinase (CK) (11/30/2024 3:40 AM EDT) Total CK 356(H) 29 - 168 U/L 11/30/2024 12:18 PM EDT [facility] Blood Venipuncture / Unknown 11/30/2024 3:40 AM EDT 11/30/2024 4:09 AM EDT us Hill Boo MD LAB BLOOD ORDERABLES Final Resu lt Performing Organization Address [facility]/ZIP Co de Phone Number [facility] [address] [phone] * (ABNORMAL) Uric acid (11/30/2024 3:40 AM EDT) Uric Acid 11.2(H) 2.5 - 6.2 mg/dL 11/30/2024 12:18 PM EDT [facility] Blood Venipuncture / Unknown 11/30/2024 3:40 AM EDT 11/30/2024 4:09 AM EDT us Hill Boo MD LAB BLOOD ORDERABLES Final Resu lt Performing Organization Address City/[facility]/ZIP Co de Phone Number [facility] [address] [phone] * Vitamin B12 (11/30/2024 3:40 AM EDT) Vitamin B12 678 213 - 816 pg/mL 11/30/2024 8:10 AM EDT [facility] Blood Venipuncture / Unknown 11/30/2024 3:40 AM EDT 11/30/2024 4:09 AM EDT us Timothy Bai MD LAB BLOOD ORDERABLES Final Result [facility] [address] [phone] * Iron, serum (11/30/2024 3:40 AM EDT) Pathologist [facility] Iron 64 50 - 170 ug/dL 11/30/2024 8:10 AM EDT [facility] Blood Venipuncture / Unknown 11/30/2024 3:40 AM EDT 11/30/2024 4:09 AM EDT us Timothy Bai MD LAB BLOOD ORDERABLES Final Result Performing Organization Address [facility]/ZIP Co de Phone Number [facility] [address] [phone] * (ABNORMAL) CBC - Hemogram (SJ-BKR) (11/30/2024 3:40 AM EDT) [facility] WBC 1.9(LL) 4.0 - 10.0 K/ L 11/30/2024 4:25 AM EDT [facility] RBC 2.63(L) 3.93 - 5.22 M/ L 11/30/2024 4:25 AM EDT [facility] Hemoglobin 8.2(L) 11.2 - 15.7 GM/DL 11/30/2024 4:25 AM EDT [facility] Hematocrit 26.3(L) 34.1 - 44.9 % 11/30/2024 4:25 AM EDT [facility] MCV 100(H) 79 - 95 fL 11/30/2024 4:25 AM EDT [facility] MCH 31.2 25.6 - 32.2 pg 11/30/2024 4:25 AM EDT [facility] MCHC 31.2(L) 32.2 - 35.5 GM/DL 11/30/2024 4:25 AM EDT [facility] RDW 16.2(H) 11.7 - 14.4 % 11/30/2024 4:25 AM EDT [facility] Platelets 64(L) 140 - 375 K/CU MM 11/30/2024 4:25 AM EDT [facility] MPV 10.4 9.4 - 12.3 fL 11/30/2024 4:25 AM EDT [facility] Blood Venipuncture / Unknown 11/30/2024 3:40 AM EDT 11/30/2024 4:10 AM EDT us Huey Hurtado MD LAB BLOOD ORDERABLES Final Resul t [facility] [address] [phone] * (ABNORMAL) Comprehensive Metabolic Panel (11/30/2024 3:40 AM EDT) Sodium 144 136 - 145 meq/L 11/30/2024 5:07 AM EDT [facility] Potassium 4.6 3.4 - 5.1 meq/L 11/30/2024 5:07 AM EDT [facility] Chloride 115(H) 98 - 112 meq/L 11/30/2024 5:07 AM EDT [facility] CO2 20(L) 22 - 29 meq/L 11/30/2024 5:07 AM EDT [facility] Calcium 8.3(L) 8.4 - 10.2 mg/dL 11/30/2024 5:07 AM EDT [facility] Glucose 86 82 - 115 mg/dL 11/30/2024 5:07 AM EDT [facility] LABORATORY BUN 74.2(H) 9.8 - 20.1 mg/dL 11/30/2024 5:07 AM EDT [facility] Creatinine 4.15(H) 0.57 - 1.11 mg/dL 11/30/2024 5:07 AM EDT [facility] BUN/Creatinine 18 8 - 20 11/30/2024 5:07 AM EDT [facility] eGFR (mL/min/1.73m2) 12(L) >=60 mL/min/1. 73m2 11/30/2024 5:07 AM EDT [facility] Albumin 2.2(L) 3.5 - 5.0 g/dL 11/30/2024 5:07 AM EDT [facility] Alkaline Phosphatase 83 40 - 150 U/L 11/30/2024 5:07 AM EDT [facility] ALT 17 <=34 U/L 11/30/2024 5:07 AM EDT [facility] Comment: ALT2 reagent used for testing does not contain P5P supplementation and therefore may miss ALT elevations in patients with B6 deficiency. This population may be as high as 10% in the [place], with risk factors including malabsorption, drug interactions, and alcoholic hepatitis. AST 43(H) 11 - 34 U/L 11/30/2024 5:07 AM EDT [facility] Comment: AST2 reagent used for testing does not contain P5P supplementation and therefore may miss AST elevations in patients with B6 deficiency. This population may be as high as 10% in the [place], with risk factors including malabsorption, drug interactions, and alcoholic hepatitis. Total Bilirubin 0.8 0.2 - 1.2 mg/dL 11/30/2024 5:07 AM EDT [facility] Protein, Total 6.5 6.4 - 8.3 g/dL 11/30/2024 5:07 AM EDT [facility] Globulin 4.3(H) 2.5 - 4.1 g/dL 11/30/2024 5:07 AM EDT [facility] Anion Gap 14(H) 4 - 12 11/30/2024 5:07 AM EDT [facility] A/G Ratio 0.5(L) 0.7 - 1.9 11/30/2024 5:07 AM EDT [facility] Osmolality Calc 308.1 mOsm/kg 5:07 AM EDT [facility] Blood Venipuncture / Unknown 11/30/2024 3:40 AM EDT 11/30/2024 4:09 AM EDT us Huey Hurtado MD LAB BLOOD ORDERABLES Final Resul t [facility] [address] [phone] * Procalcitonin (11/30/2024 3:40 AM EDT) Procalcitonin 0.26 See Comment ng/mL 11/30/2024 5:07 AM EDT [facility] Comment: Sepsis comment <0.5 Antibiotics Discouraged [...] MD LAB BLOOD ORDERABLES Final Resul t [facility] [address] [phone] * Blood Culture (11/30/2024 3:40 AM EDT) Result No growth in 5 days 12/05/2024 5:01 AM EDT [facility] Blood ENTIRE LEFT UPPER ARM / Unknown Venipuncture / Unknown 11/30/2024 3:40 AM EDT 11/30/2024 4:09 AM EDT us Huey Hurtado MD MICROBIOLOGY - GENERAL ORDERABLE S Final Result Performing Organization Address City/[facility]/ZIP Co de Phone Number [facility] [address] [phone] * Ammonia (11/30/2024 3:40 AM EDT) Ammonia 59 18 - 72 mol/L 11/30/2024 4:51 AM EDT [facility] Blood Venipuncture / Unknown 11/30/2024 3:40 AM EDT 11/30/2024 4:10 AM EDT us Huey Hurtado MD LAB BLOOD ORDERABLES Final Resul t Performing Organization Address [facility] Co de Phone Number [facility] [address] [phone] * (ABNORMAL) Magnesium (11/30/2024 3:40 AM EDT) Magnesium 2.7(H) 1.6 - 2.6 mg/dL 11/30/2024 5:07 AM EDT [facility] Blood Venipuncture / Unknown 11/30/2024 3:40 AM EDT 11/30/2024 4:09 AM EDT us Huey Hurtado MD LAB BLOOD ORDERABLES Final Resul t Performing Organization Address [facility] de Phone Number [facility] [address] [phone] * Lactic Acid with reflex (11/30/2024 3:40 AM EDT) Lactic Acid Level (mmol/L) 0.9 0.5 - 2.2 mmol/L 11/30/2024 5:37 AM EDT [facility] Blood Venipuncture / Unknown 11/30/2024 3:40 AM EDT 11/30/2024 4:10 AM EDT us Huey Hurtado MD LAB BLOOD ORDERABLES Final Resul t Performing Organization Address [facility] Co de Phone Number [facility] [address] [phone] * aPTT (11/30/2024 3:40 AM EDT) aPTT 27.7 22.0 - 32.0 seconds 11/30/2024 4:32 AM EDT [facility] Blood Venipuncture / Unknown 11/30/2024 3:40 AM EDT 11/30/2024 4:10 AM EDT us Huey Hurtado MD LAB BLOOD ORDERABLES Final Resul t Performing Organization Address [facility] Co de Phone Number [facility] [address] [phone] * (ABNORMAL) Prothrombin time/INR (11/30/2024 3:40 AM EDT) Protime 12.9(H) 9.0 - 12.0 seconds 11/30/2024 4:32 AM EDT [facility] INR 1.17(H) 0.80 - 1.10 11/30/2024 4:32 AM EDT [facility] Comment: Recommended therapeutic ranges using International [...] ORDERABLES Final Resul t Performing Organization Address [facility] de Phone Number [facility] [address] [phone] * EKG-SCANNED (11/30/2024) Narrative 11/30/2024 Ordered by [...] rounded to 16.7 mL/hr), intravenous, Starting on Fri12/04/24 at 1830, For 18 hours Rate/Dose Verify [...] If Blood Sugar is less than 180 [facility] [phone], DO NOT give corrective insulin unless otherwise [...] Fri12/01/24 at 0830, Pre-op, On hold since Denise 12/02/2024 at 0935 until manually unheld New Bag [...] 100 mEq 100 mEq Once, intravenous, On Tu12/07/24 at 1130, For 1 dose Given 12/07/2024 [...] oral, First dose on 12/04/24 at 1130 0840 (Given - Provider: Mary Lou Sidhu RN) 0902 (Given - Provider: Olimpia Mcmillan RN) 0930 (Given - Provider: Olimpia Mcmillan, DAYANARA) atorvastatin (LIPITOR) tablet 20 mg 20 mg Every Night, oral, First dose on Tu11/30/24 at 2100 2144 (Given - Provider: Alberto [...] DAYANARA) 0903 (Given - Provider: Olimpia Mcmillan, DAYANARA)1420 (Given - Provider: Olimpia Mcmillan, DAYANARA)2030 (Given - Provider: Jamal Lopez RN) 0930 (Given - Provider: Olimpia Mcmillan, DAYANARA)1608 (Given - Provider: Olimpia Mcmillan RN) insulin lispro (HUMALOG, ADMELOG) injection 0-18 Units 0-18 Units 4 times daily (before meals and nightly), subcutaneous, First dose on Fri11/30/24 at 0730, If Blood Sugar is less than 180 [place]eween [id number], DO NOT give corrective insulin unless otherwise [...] flush documented in this encounter Care Teams Surveyor Helper Rod Relationship Specialty Start Date End Date [facility], [facility] [place] [address] PCP - General 11/30/24 12/13/24 Provider, Not In System [place] PCP - General 12/14/24 documented as of this encounter
--- OUTSIDE RECORDS SUMMARY | 2024-12-01 08:55 | XMS_ITS | Encounter Summary ---
Author Organization [facility] In iatives Address [address] [place] [address] Care Team Providers Care Senior Account Manager Name Role Phone [facility] Francesca, Find-A-Doc Primary Care Provider Reason for Visit * Auth/Cert (Routine) Specialty Diagnoses / Procedures Referred By Mayela may Referred To Contact Diagnoses Anasarca ACUTE RENAL FAILURE [address] Medical Telemetry Unit [address] [place] [phone] Phone: tel: fax: [address] Medical Telemetry Unit [address] [place] [phone] Phone: tel: fax: Referral ID Status Reason Start Date Expiration Date Visits Re quested Visits Authorized [id number] 1 1 Encounter Details Date Type Department Care Team (Late st Contact Info) Description 12/01/2024 8:55 AM EDT Anesthesia Event [facility] Endoscopy 1 [place] [address] Ashtyn Sanchez MD [address] [place] [address] Anesthesia Record Procedure Summary Procedure Name Responsible Anesthesiologist Anesthesia Start Time Anesthesia Stop Time EGD, WITH FOREIGN BODY REMOVAL Ashtyn Sanchez MD 12/01/24 0855 12/01/24 0943 Events Date Time Event Comment 12/01/2024 0809 0855 An Start Patient identif ied and chart reviewed. 0855 An Start Data Anesthesia mac maura and monitors checked. 0857 Pre-Induction Eval FDA anest hesia machine pre-use checkout completed. Patient status reassessed prior to start of anesthesia care. 0859 An Induction 0901 An Intubation 0904 Anesthesia Ready 0930 An Extubation 0931 an stop data 0943 Handoff to Receiving I compl eted my handoff to the receiving clinician during which we: 1. Identified the patient. 2. Identified the responsible provider. 3. Reviewed the pertinent medical history. 4. Discussed the surgical course. 5. Reviewed intra-op anesthesia management and issues during anesthesia. 6. Set expectations for post-procedure period. 7. Allowed opportunity for questions and acknowledgement of understanding. 0943 An Stop Meds Name Total fentaNYL (SUBLIMAZE) injection 50 mcg lidocaine (XYLOCAINE) injection 2% 100 m g ondansetron (ZOFRAN) injection vial 4 mg propofol (DIPRIVAN) injection 10 mg/mL b olus 50 mg lactated ringers (LR) infusion 400 mL * Agents Name O2 N2O Air SEVOFLURANE * Blood Name Total PRBC 70 mL Lines, Drains, and Airways Type Details Placement Removal Peripheral IV Placement Date: 11/29/24; Placement Time: 1999; Size: 20 G; Orientation: Anterior, Right; Location: Forearm; Removal Date: 12/05/24; Removal Time: 1250 11/29/241999 by Nuria Patel RN 12/05/24 125 by Gianna Senior RN Peripheral IV Placement Date: 11/29/24; Placement Time: 1999; Size: 20 G; Orientation: Anterior, Left; Location: Forearm; Removal Date: 12/08/24; Removal Reason: Site change 11/29/241999 by Nuria Patel RN 12/08/24 0000 by Virginia Haynes RN ETT Placement Date 12/01; Placement Time 900 (created via procedure documentation); Airway Size 7.5; Airway Cuffed Yes; Removal Date 12/01/24; Removal Time 92912/01/24 09 by Rolo Stauffer CRNA 12/01/24929 by Rolo Stauffer CRNA documented in this encounter Social History Tobacco Use Types Packs/Day Years Used Date Smoking Tobacco: Never Passive Smoke Exposure: Never Smokeless Tobacco: Never Alcohol Use Standard Drinks/Week Comments Never 0 [...] your living situation today? I have a [facility] place to live 11/30/2024 Think about the [...] Do you speak a language other than [place]in[place]e at [facility]? No 11/30/2024 Do you [...] on file documented as of this encounter OR Notes * Anesthesia Postprocedure Evaluation - Rolo Stauffer CRNA - 12/01/2024 9:43 AM EDT Patient: Mayr Coronel Procedure Summary Date: 12/01/24 Room / [facility] Anesthesia Start: 08 Anesthesia Stop: Procedure: ESOPHAGOGASTRODUODENOSCOPY (EGD) Diagnosis: Melena (melena) Surgeons: Scott Daley MD Responsible Provider: Ashtyn Sanchez MD Anesthesia Type: MAC ASA Status: 4 Anesthesia Type: MAC Vitals Value Taken Time BP 159/70 12/01/24 0935 Temp 97.3 ??F (36.3 ??C) 12/01/24 0935 Pulse 95 12/01/24 0935 Resp 17 12/01/24 0935 SpO2 100 % 12/01/24 0935 Ht 1.676 m (5' 6 ) Wt 101.6 kg (224 lb) BMI 36.15 kg/m?? Anesthesia Post Evaluation Patient location during evaluation: PACU Patient participation: complete - patient participated Level of consciousness: awake Pain management: adequate Multimodal analgesia pain management approach Airway patency: patent Cardiovascular status: stable Respiratory status: nasal cannula Hydration status: stable Color: [place] Activity: Moves 4 extremities Inotropes/Vasopressors: N/A No notable events documented. Rolo Stauffer CRNA 12/01/2024 9:43 AM EDT * Anesthesia Procedure Notes - Rolo Stauffer CRNA - 12/01/2024 9:06 AM EDT Associated Order(s): Intubation Intubation Authorized by: Ashtyn Sanchez MD Performed by: Rolo Stauffer CRNA Date/Time: 12/01/2024 9:01 AM Urgency: elective Indications and Patient Condition Indications for airway management: anesthesia and airway protection Spontaneous Ventilation: absent Sedation level: general anesthesia Preoxygenated: yes Patient position: sniffing no Mask difficulty assessment: 2 - vent by mask + OA or adjuvant +/- NMBA no Final Airway Details Final airway type: endotracheal airway Endotracheal tube type: ETT Cuffed: yes Successful intubation technique: direct laryngoscopy Facilitating devices/methods: intubating stylet Endotracheal tube insertion site: oral Blade: [place] Blade size: #3 ETT size (mm): 7.5 Cormack-Lehane Classification: grade I - full view of glottis Placement verified by: chest auscultation and capnometry Cuff volume (mL): 10 Measured from: teeth ETT to teeth (cm): 22 Number of attempts at approach: 1 Number of other approaches attempted: 0 Additional Comments ATRAUMATIC INTUBATION * Anesthesia Preprocedure Evaluation - Ashtyn Sanchez MD - 12/01/2024 7:19 AM EDT ANESTHESIA PREOPERATIVE EVALUATION Patient: Mary Coronel Date/Time: 12/01/24918 Procedure: ESOPHAGOGASTRODUODENOSCOPY (EGD) Location: [facility] END[facility] 03 / [facility] Surgeons: Scott Daley MD Vitals: 12/01/24 0033 12/01/24 0421 12/01/24 0550 12/01/24 0809 BP: 131/64 (!) 143/63 (!) 149/56 Pulse: 92 96 95 Resp: 16 20 20 Temp: 98.1 ??F (36.7 ??C) 97.9 ??F (36.6 ??C) 97.7 ??F (36.5 ??C) TempSrc: Tympanic SpO2: 98% 100% 94% Weight: 101.7 kg (224 lb 1.6 oz) 101.6 kg (224 lb) Height: 1.676 m (5' 6 ) Body mass index is 36.15 kg/m??. No Known Allergies Current Outpatient Medications Medication Instructions albuterol 90 [...] 0.1 Applications, topical, Daily, to affected area. INPATIENT MEDICATIONS [Transfer Hold] albumin human 25% 25 g intravenous Q6H NAS 25 g at 12/01/24 05 [Transfer Hold] atorvastatin 20 mg oral Every Night 20 mg at 11/30/242035 [Transfer Hold] cefTRIAXone 2 g intravenous Q24H IVPB Stopped at 11/30/24 2104 [Transfer Hold] ergocalciferol 50,000 Units oral Q7 Days 50,000 Units at 11/30/24 1459 [Transfer Hold] gabapentin 300 mg oral TID 300 mg at 11/30/242035 [Transfer Hold] insulin lispro 0-18 Units subcutaneous 4x Daily AC [Transfer Hold] lactulose 20 g oral Daily 20 g at 11/30/24 1120 [Transfer Hold] pantoprazole 40 mg intravenous QPM 40 mg at 11/30/24 1815 [Transfer Hold] rifAXIMin 550 mg oral BID 550 mg at 11/30/242035 Problem List as of 12/01/2024 Digestive Melena Other * (Principal) Anasarca Past Medical History: Diagnosis Date Cirrhosis, non-alcoholic (HCC) Diabetes mellitus (HCC) Hypertension Patient admitted to outside hospital with swollen abdomen, abdominal pain, BLE edema, transferred to [facility] for hepatorenal syndrome evaluation. Hx dark, tarry stools. Hx non-alcoholic fatty liver disease [place], previously on Mounjaro, no longer taking. Tirzepatide also listed as medication but patient states she is not taking. CAD, s/p stents Paracentesis yesterday, 6L ascites removed, possible temporary dialysis EGD to assess for possible varices. Denies hx anes probs Nonsmoker Denies hx AUGUST Denies current GERD symptoms or nausea No past surgical history on file. Social History Tobacco Use Smoking status: Never Passive exposure: Never Smokeless tobacco: Never Substance Use Topics Alcohol use: Never Drug use: Never Echo Results (last 7 days) Procedure Component Value Units Date/Time ECHO COMPLETE (DOPPLER / COLOR) W OR WO CONTRAST [[id number]] Collected: 11/30/24 0725 Order Status: Completed Updated: 11/30/24 104 Narrative: TRANSTHORACIC ECHOCARDIOGRAPHY REPORT Demographics Patient Name: RIN JONES : 1960 Age: 64 year(s) Corporate ID Number: [id number] Gender Female Bath Mixer: Giovanna Rock Height: 67 inches [facility] Referring Physician: HUEY RICHARDSON Weight: 225 pounds Interpreting JESSICA NIEVES MD BMI: 35.24 kg/m^2 Physician: Date of [...] .99 LV length: 8.51 cm ml Volume vxudygwz82.96 ml LVOT diameter: 1.79 cm Normal sized [...] Valve TR velocity: 2.51 m/s TR gradient: 25.54244 mmHg Estimated RAP: 3 mmHg RVSP: 28.12 [...] posteriorly. Other Ascites noted in subcostal imaging. Chemistry Component Value Date/Time NA 145 12/01/2024404 K 4.2 12/01/2024404 CL 116 (H) 12/01/2024404 CO2 20 (L) 12/01/2024404 BUN 68.3 (H) 12/01/2024404 CREATININE 4.13 (H) 12/01/2024404 Component Value Date/Time CALCIUM 8.0 (L) 12/01/2024404 ALKPHOS 61 12/01/2024 0405 AST 26 12/01/2024 0405 ALT 15 12/01/2024 0405 BILITOT 0.5 12/01/2024404 Lab Results Component Value Date WBC 1.7 (LL) 12/01/2024 HGB 6.7 (L) 12/01/2024 HCT 21.6 (L) 12/01/2024 MCV 101 (H) 12/01/2024 PLT 54 (L) 12/01/2024 Clinical information reviewed: Meds Date of last liquid: 12/01/24 Time of last liquid: 0000 Date of last solid: 11/30/24 Time of last solid: 1800 Physical Exam Airway Mallampati: II Cardiovascular Rhythm: regular Rate: normal (+) murmur Dental (+) upper dentures, lower dentures Pulmonary Breath sounds clear to auscultation Abdominal (+) obese Other findings: Distended abdomen, paracentesis access still in place. Bilateral LE pitting edema Anesthesia Plan ASA 4 MAC (MAC vs. GETA for EGD) The patient is not a current smoker. intravenous induction Anesthetic plan and risks discussed with patient. Plan discussed with CONTAINER WASHER. documented in this encounter Plan of Treatment Upcoming Encounters Date Type Department Care Team (Late st Contact Info) Description 01/27/2025 10:45 AM EDT Office Visit [facility] Electrophysiology [address] [place] [phone] Quincy Foss MD [address] [place] [address] [address] [place] [address] documented as of this encounter Procedures Procedure Name Priority Date/Time Associated Diagnosis Comments ANESTHESIA INTUBATION Routine 12/01/2024 9:01 AM EDT documented in this encounter Results * AN SINGLE LUMEN INTUBATION (12/01/2024 9:01 AM EDT) Rolo Watson CRNA - 12/01/2024 9:01 AM EDT Rolo Stauffer CRNA 12/01/2024 9:07 AM Intubation Authorized by: Ashtyn Sanchez MD Performed by: Rolo Stauffer CRNA Date/Time: 12/01/2024 9:01 AM Urgency: elective Indications and Patient Condition Indications for airway management: anesthesia and airway protection Spontaneous Ventilation: absent Sedation level: general anesthesia Preoxygenated: yes Patient position: sniffing no Mask difficulty assessment: 2 - vent by mask + OA or adjuvant +/- NMBA no Final Airway Details Final airway type: endotracheal airway Endotracheal tube type: ETT Cuffed: yes Successful intubation technique: direct laryngoscopy Facilitating devices/methods: intubating stylet Endotracheal tube insertion site: oral Blade: [place] Blade size: #3 ETT size (mm): 7.5 Cormack-Lehane Classification: grade I - full view of glottis Placement verified by: chest auscultation and capnometry Cuff volume (mL): 10 Measured from: teeth ETT to teeth (cm): 22 Number of attempts at approach: 1 Number of other approaches attempted: 0 Additional Comments ATRAUMATIC INTUBATION Ashtyn Sanchez MD ANESTHESIA ORDERABLES F inal Result documented in this encounter Visit Diagnoses Not on filedocumented in this encounter Administered Medications Inactive Administered Medications - up to 3 most recent administrations Medication Order MAR Action Action Date Dose Rate Site fentaNYL PF (SUBLIMAZE) injection As needed, intravenous, Starting on Fri12/01/24 at 0859, Anesthesia Intra-op Given 12/01/2024 8:59 AM EDT 50 mcg lactated Ringer's infusion Continuous PRN, intravenous, Starting on Fri12/01/24 at 0855, Anesthesia Intra-op New Bag 12/01/2024 8:55 AM EDT lidocaine (XYLOCAINE) injection 2% As needed, intravenous, Starting on Fri12/01/24 at 0859, Anesthesia Intra-op Given 12/01/2024 8:59 AM EDT 100 mg ondansetron (ZOFRAN) injection As needed, intravenous, Starting on Fri12/01/24 at 0859, Anesthesia Intra-op Given 12/01/2024 8:59 AM EDT 4 mg propofol (DIPRIVAN) injection 10 mg/mL bolus As needed, intravenous, Starting on Fri12/01/24 at 0859, Anesthesia Intra-op Given 12/01/2024 8:59 AM EDT 50 mg documented in this encounter Care Teams Senior Account Manager Relationship Specialty Start Date End Date [facility] Connection, Find-A-Doc [facility] [place] [address] PCP - General 11/30/24 12/13/24 documented as of this encounter
--- OUTSIDE RECORDS SUMMARY | 2024-12-01 09:19 | XMS_ITS | Encounter Summary ---
Author Organization [facility] Address [address] [place] [address] Care Team Providers Care Rotoformer Backtender Name Role Phone [facility] Connection, Find-A-Doc Primary Care Provider Reason for Visit * Auth/Cert (Routine) Specialty Diagnoses / Procedures Referred By Mayela may Referred To Contact Diagnoses Anasarca ACUTE RENAL FAILURE [address] Medical Telemetry Unit [address] [place] [phone] Phone: tel: fax: [address] Medical Telemetry Unit [address] [place] [phone] Phone: tel: fax: Referral ID Status Reason Start Date Expiration Date Visits Re quested Visits Authorized [id number] 1 1 Encounter Details Date Type Department Care Team (Late st Contact Info) Description 12/01/2024 9:19 AM EDT - 12/01/2024 9:50 AM EDT Surgery [facility] Endoscopy [address] [place] [address] Scott Daley MD [address] [place] [address] EGD, WITH FOREIGN BODY REMOVAL Social History [...] your living situation today? I have a [facility] place to live 11/30/2024 Think about the [...] Do you speak a language other than [place] at [facility]? No 11/30/2024 Do you want help with [...] [facility] Discharge Summary Patient Name: Mary Coronel : 1960 Date of Admission: 11/30/2024 Date of Discharge: 12/14/2024 Primary Care Physician: Not In System Provider Hospital Course Warehouse Manager(s): Discharge Diagnosis: Anasarca Cirrhosis Paroxysmal atrial fibrillation/nonsustained [...] diabetes, CKD, CAD, arthritis. Patient presented to [facility] with swollen abdomen, abdominal discomfort and bilateral lower extremity pitting edema.Patient's BUN/creatinine elevated, and patient subsequently transferred to [facility] for hepatorenal syndrome evaluation. Admits to 4 [...] days. Patient's niece forced patient to visit [facility] emergency room today she really loves [...] a bone marrow biopsy which was unremarkable. [place] that she had anemia of chronic disease [...] Medications These medications were sent to [facility] at [facility] [address] [place] [address] [address] [facility] [address], [facility] [phone] amiodarone 200 MG tablet ergocalciferol 1,250 mcg (50,000 unit) capsule lactulose 10 gram/15 mL solution pantoprazole 40 MG tablet rifAXIMin 550 mg These medications were sent to [place] [id number] [place] [id number] [facility] [address] metOLazone 2.5 MG tablet tamsulosin 0.4 mg [...] Contact information for follow-up [facility] [address] Next Steps: Go in 2 week(s) Instructions: Nephrology follow up 12/30/24 @8:45am Follow up with NAL in 1-2 weeks with renal function panel Primary care provider (PCP) Next Steps: Follow up Monika Hernandez APRN [facility] Primary Care [address] [place] [id number] Next Steps: Go in 1 week(s) Instructions: PCP follow up 12/22/24 @3:00pm Time Spent on Discharge: I spent 35 minutes in lpgy-cc-bpiq time with the patient and nursing staffconcerning [...] diabetes, CKD, CAD, arthritis. Patient presented to [facility] with swollen abdomen, abdominal discomfort and bilateral lower extremity pitting edema.Patient's BUN/creatinine elevated, and patient subsequently transferred to [facility] for hepatorenal syndrome evaluation. Admits to 4 [...] days. Patient's niece forced patient to visit [facility] emergency room today she really loves [...] Medications These medications were sent to [facility] at [address] [facility] [address] [place] [phone] amiodarone 200 MG tablet amoxicillin-clavulanate 500-125 mg [...] to 2-week Nephrology 1 to 2-week Disposition residential facility Time Spent: 45 min Electronically signed [...] Labs: Recent Labs Lab(s) Units 12/14/24 0254 12/13/2431412/12/24 034 WBC K/??L 1.4* 1.4* 1.4* HGB GM/DL 7.6* 7.4* 7.3* PLT K/CU MM 51* 52* 43* Recent Labs Lab(s) Units 12/14/24 0254 12/13/24 03112/12/24 0347 12/11/24 0339 12/10/24 0953 NA meq/L [...] renal function - No emergent need of LAMP SHADE MAKER - Monitor H/H and transfuse for Hgb less than 7.0 Follow up with NAL in 1-2 weeks with renal function panel Lauar Cervantes MD 12/14/24 12:15 PM * KENNEY [...] additional home health needs. Patient/family provided with [facility] approved choice list and Patient [...] Hematology/oncology following. Acute hypoxemic/hypercapnic respiratory failure - [place] to be due to pulmonary edema from [...] etc): TBD Signed: Brad Coffman PA-C [facility] Hospitalist * Rea Bishop RD - 12/13/2024 [...] intakes reported. 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 Requested chicken noodle soup for lunch. Agreeable to ONS TID. Past Medical/Surgical History: Past Medical History: Diagnosis Date Cirrhosis, non-alcoholic (HCC) Diabetes mellitus (HCC) Hypertension Past Surgical History: Procedure Laterality Date ESOPHAGOGASTRODUODENOSCOPY (EGD),REMOVAL FOREIGN BODY N/A 12/01/2024 Procedure: EGD, WITH FOREIGN BODY REMOVAL; Surgeon: Scott Daley MD; Location: [facility]; Service: Gastroenterology; Laterality: N/A; Vitals and [...] 10 g 10 g oral BID Timothy Bia MD 10 g at 12/13/24 0902 [Held [...] infusion 20 mL/hr intravenous Once Denilson Hodgson sodium chloride flush 10 mL 10 mL [...] with severity: none 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 She initially presented to [facility] with swollen abdomen, abdominal discomfort, and bilateral lower extremity pain. Her creatinine was elevated and as a result, she was transferred to [facility] for he patorenal syndrome. Upon arrival [...] BODY REMOVAL; Surgeon: Scott Daley MD; Location: [facility]; Service: Gastroenterology; Laterality: N/A; Allergies: No [...] POC-GLUCOSE 127 (H) 70 - 110 mg/dL Director Content Marketing [id number] Glucose, Nova Meter Status: Abnormal Collection Time: 12/13/24 11:15 AM Result Value Ref Range POC-GLUCOSE 221 (H) 70 - 110 mg/dL Director Content Marketing [id number] Glucose, Nova Meter Status: Abnormal Collection Time: 12/13/24 4:24 PM Result Value Ref Range POC-GLUCOSE 156 (H) 70 - 110 mg/dL Director Content Marketing [id number] Glucose, Nova Meter Status: Abnormal Collection Time: 12/13/24 8:20 PM Result Value Ref Range POC-GLUCOSE 186 (H) 70 - 110 mg/dL Director Content Marketing [id number] Radiology Radiology Results (last day) No results found for the last 24 hours. Microbiology: Microbiology Results (last 7 days) Procedure Component Value Units Date/Time Fungus Culture W/ROSA MARIA Or Nimisha Ink [[id number]] Collected: 11/30/24 1603 Order Status: Completed Specimen: Peritoneal Fluid from Body Fluid Updated: 12/07/24 1700 Result No fungus isolated at 1 week. ROSA MARIA Prep No fungal elements seen Narrative: Specimen Description: peritoneal fluid AFB Culture And Stain [[id number]] Collected: 11/30/24 1603 Order Status: Completed Specimen: [...] to continue with albumin/diuretics no indication for LAMP SHADE MAKER No significant pleural effusion for thoracentesis If needed repeat chest x-ray. Otherwise continue diuresis Pulmonary will sign off. Please call for any issues Case discussed during round. I have personally evaluated the patient and performed a uzzu-tk-liaw diagnostic evaluation on this patient; I have reviewed history, performed physical examination, reviewed laboratory studies. , andreviewed images independent of radiologist. I have actively directed the medical care, formulated assessemnt and plan of care. Patient requires a high complexity of decision making for assessment. Voice manager fiber technology ([employer]) is used for dictation of this note and sound-alike words might be erroneously placed despite reviewing the note for accuracy.Errors in dictation may reflect use of voice recognition software and not all errors in manager fiber may have been detectedprior to signing * [...] dry Labs: Recent Labs Lab(s) Units 12/13/24 03112/12/24 0347 12/11/24 0336 WBC K/??L 1.4* 1.4* [...] renal function - No emergent need of LAMP SHADE MAKER - Monitor H/H and transfuse for Hgb [...] Coronel Admission Date: 11/30/2024 Primary Care Provider: [facility] Find-a-Doc Chief Complaint/Reason for Consult: No chief complaint on file. History of Present Illness: Mary Coronel is a 64 y.o. female, admitted on: 11/30/2024 1:43 AM. presented to [facility] with swollen abdomen, abdominal discomfort and bilateral lower extremity pitting edema. Patient's BUN/creatinine elevated, and patient subsequently transferred to [facility] for hepatorenal syndrome evaluation. Admits to 4 [...] Culture And Stain AFB Culture And Stain [facility] Non-Rn Private Duty Cytology [facility] Non-Rn Private Duty Cytology DIFFERENTIAL, BODY FLUID DIFFERENTIAL, BODY FLUID Body Fluid/CSF - Path Review () Body Fluid/CSF - Path Review () [facility] BONE MARROW SMEAR, ASPIRATION, AND STAIN [facility] BONE MARROW SMEAR, ASPIRATION, AND [...] BODY REMOVAL; Surgeon: Scott Daley MD; Location: [facility]; Service: Gastroenterology; Laterality: N/A; Allergies: No [...] Normal range of motion. Integumentary: Warm, Dry, [place]. Neurologic: No obvious focal deficit Psychiatric: Cooperative, Appropriate mood & affect. Labs, Imaging, and Other Studies: Echo Results (last 7 days) Procedure Component Value Units Date/Time ECHO COMPLETE (DOPPLER / COLOR) W OR WO CONTRAST [[id number]] Collected: 11/30/24724 Order Status: Completed Updated: 11/30/241045 Narrative: TRANSTHORACIC ECHOCARDIOGRAPHY REPORT Demographics Patient Name: RIN JONES : 1960 Age: 64 year(s) Corporate ID Number: [id number] Gender Female Audio Director: Giovanna Rock Height: 67 inches [facility] Referring Physician: HUEY HURTADO Weight: 225 pounds Interpreting JESSICA RAYMOND MD BMI: 35.24 kg/m^2 Physician: Date of Service: 11/30/2024 Blood Pressure: 118/59 mmHg Room Number: 579 Type of Study: TTE procedure: ECHO COMPLETE (DOPPLER / COLOR) W OR WO CONTRAST. Patient Status: Routine IP [facility]quate [facility] History/Tech Notes: Indication: [...] 1.35 m/s E/A ratio: 0.97 m/s Volume xdvnouuud841.99 LV length: 8.51 cm ml Volume sgcadczw19.96 ml LVOT diameter: 1.79 cm Normal sized [...] Valve TR velocity: 2.51 m/s TR gradient: 25.38181 mmHg Estimated RAP: 3 mmHg RVSP: 28.12 [...] (DOPPLER / COLOR) W OR WO CONTRAST [[id number]] Collected: 11/30/2425 Order Status: Completed Updated: 11/30/24 104 Narrative: TRANSTHORACIC ECHOCARDIOGRAPHY REPORT Demographics Patient Name: RIN JONES : 1960 Age: 64 year(s) Corporate ID Number: [id number] Gender Female Audio Director: Giovanna Rock Height: 67 inches [facility] Referring Physician: HUEY HURTADO Weight: 225 pounds Interpreting JESSICA RAYMOND MD BMI: 35.24 kg/m^2 Physician: Date of Service: 11/30/2024 Blood Pressure: 118/59 mmHg Room Number: 579 Type of Study: TTE procedure: ECHO COMPLETE (DOPPLER / COLOR) W OR WO CONTRAST. Patient Status: Routine IP Study [facility] Adequate visualization History/Tech Notes: Indication: [...] 1.35 m/s E/A ratio: 0.97 m/s Volume deslnbnmg094.99 LV length: 8.51 cm ml Volume kkzoqbqb45.96 ml LVOT diameter: 1.79 cm Normal sized [...] Valve TR velocity: 2.51 m/s TR gradient: 25.66770 mmHg Estimated RAP: 3 mmHg RVSP: 28.12 [...] imaging. Assessment and Plan: *Paroxysmal Atrial Fib [id number] of 3 to 4 also have some [...] Patient cannot take anticoagulation for A-fib despite [id number] because of multiple issue including GI bleeding [...] 12/13/2024 8:25 AM EDTSummary: MANGO Updates - [facility] Pending Discharge Plan Progress Note Case Management received call from Vesna Gibson (phone # [phone]) security coordinator with [facility] requesting notes from weekend. CM faxed weekend notes via Careport to Ez Gibson to fax # [phone]. Patient will require a precert if a bed is offered. Update, 12/13, 3:07 pm Patient and family's first choice, [facility] have denied patient due to not being able to meet and accommodate patient's clinical needs. No information regarding how. Update 3:45 pm - Per facility's admission senior center manager, patient is requiring BiPaP 'too much' (17/02 per facility words), requiring a paracentesis too often, no activity tolerance, therefore patient is not rehab appropriate. CM asked [facility] to review referral to inquire about potential [...] purposes. MANGO has updated treatment team via [employer] chat that are signed into patient's chart on 12/13 - QUIQUE, bedside RN, bedside SWIM INSTRUCTOR, PT, and OT. Patient has other offers from the following: [facility] [place], [place]; offered bed prior to [facility]; follow up with Rama via [facility], [place] KENNEY Zaragoza * Norm Cameron MD - 12/12/2024 8:47 PM EDT EP progress note Patient Name: Mary Coronel Admission Date: 11/30/2024 Primary Care Provider: [facility] Find-a-Doc Chief Complaint/Reason for Consult: No chief complaint on file. History of Present Illness: Mary Coronel is a 64 y.o. female, admitted on: 11/30/2024 1:43 AM. presented to [facility] with swollen abdomen, abdominal discomfort and bilateral lower extremity pitting edema. Patient's BUN/creatinine elevated, and patient subsequently transferred to [facility] for hepatorenal syndrome evaluation. Admits to 4 [...] mg 4 mg oral Q8H PRN Huey Hurtdao MD Or ondansetron (ZOFRAN) injection 4 mg [...] Culture And Stain AFB Culture And Stain [facility] Non-Rn Private Duty Cytology [facility] Non-Rn Private Duty Cytology DIFFERENTIAL, BODY FLUID DIFFERENTIAL, BODY FLUID Body Fluid/CSF - Path Review () Body Fluid/CSF - Path Review () [facility] BONE MARROW SMEAR, ASPIRATION, AND STAIN [facility] BONE MARROW SMEAR, ASPIRATION, AND [...] BODY REMOVAL; Surgeon: Scott Daley MD; Location: [facility]; Service: Gastroenterology; Laterality: N/A; Allergies: No [...] Normal range of motion. Integumentary: Warm, Dry, [place]. Neurologic: No obvious focal deficit Psychiatric: Cooperative, Appropriate mood & affect. Labs, Imaging, and Other Studies: Echo Results (last 7 days) Procedure Component Value Units Date/Time ECHO COMPLETE (DOPPLER / COLOR) W OR WO CONTRAST [[id number]] Collected: 11/30/24724 Order Status: Completed Updated: 11/30/24 1046 Narrative: TRANSTHORACIC ECHOCARDIOGRAPHY REPORT Demographics Patient Name: RIN JONES : 1960 Age: 64 year(s) Corporate ID Number: [id number] Gender Female Audio Director: Giovanna Rock Height: 67 inches [facility] Referring Physician: HUEY HURTADO Weight: 225 pounds Interpreting JESSICA RAYMOND MD BMI: 35.24 kg/m^2 Physician: Date of Service: 11/30/2024 Blood Pressure: 118/59 mmHg Room Number: 579 Type of Study: TTE procedure: ECHO COMPLETE (DOPPLER / COLOR) W OR WO CONTRAST. Patient Status: Routine IP Study [facility] Adequate visualization History/Tech Notes: Indication: [...] 1.35 m/s E/A ratio: 0.97 m/s Volume aejztcwuo933.99 LV length: 8.51 cm ml Volume pnrkoqon27.96 ml LVOT diameter: 1.79 cm Normal sized [...] Valve TR velocity: 2.51 m/s TR gradient: 25.51255 mmHg Estimated RAP: 3 mmHg RVSP: 28.12 [...] including malabsorption, drug interactions, and alcoholic hepatitis. Dialoggy has become aware of sulfasalazine and sulfapyridine [...] (DOPPLER / COLOR) W OR WO CONTRAST [[id number]] Collected: 11/30/24724 Order Status: Completed Updated: 11/30/241045 Narrative: TRANSTHORACIC ECHOCARDIOGRAPHY REPORT Demographics Patient Name: RIN JONES : 1960 Age: 64 year(s) Corporate ID Number: [id number] Gender Female Audio Director: Giovanna Rock Height: 67 inches [facility] Referring Physician: HUEY HURTADO Weight: 225 pounds Interpreting JESSICA RAYMOND MD BMI: 35.24 kg/m^2 Physician: Date of Service: 11/30/2024 Blood Pressure: 118/59 mmHg Room Number: 579 Type of Study: TTE procedure: ECHO COMPLETE (DOPPLER / COLOR) W OR WO CONTRAST. Patient Status: Routine IP [facility]quate [facility] History/Tech Notes: Indication: [...] 1.35 m/s E/A ratio: 0.97 m/s Volume kcrvlipir303.99 LV length: 8.51 cm ml Volume oqgevlhj86.96 ml LVOT diameter: 1.79 cm Normal sized [...] Valve TR velocity: 2.51 m/s TR gradient: 25.87357 mmHg Estimated RAP: 3 mmHg RVSP: 28.12 [...] imaging. Assessment and Plan: *Paroxysmal Atrial Fib [id number] of 3 to 4 also have some [...] Patient cannot take anticoagulation for A-fib despite [id number] because of multiple issue including GI bleeding [...] and response to therapy. * Mary Lou Siduh RN - 12/12/2024 4:00 PM EDT Weight [...] renal function - No emergent need of LAMP SHADE MAKER - Monitor H/H and transfuse for Hgb [...] Hematology/oncology following. Acute hypoxemic/hypercapnic respiratory failure - [place] to be due to pulmonary edema from [...] mg oral BID 550 mg at 12/11/24 08 spironolactone 12.5 mg oral Daily 12.5 mg [...] Hematology/oncology following. Acute hypoxemic/hypercapnic respiratory failure - [place] to be due to pulmonary edema from [...] SNF/Rehab, etc): TBD Signed: Brad Coffman PA-C [facility] Hospitalist * Laura Cervantes MD - [...] renal function - No emergent need of LAMP SHADE MAKER - Monitor H/H and transfuse for Hgb [...] BODY REMOVAL; Surgeon: Scott Daley MD; Location: [facility]; Service: Gastroenterology; Laterality: N/A; General Visit type: Treatment Approved by: Nurse Metzger Patient disposition upon entry: Patient verified by name, Patient verified by date of , Supinein bed Co-treated by: PHYSICIAN ADVISOR Assisted by: printer assistant Precautions Weightbearing status: No restrictions Precautions: [...] had BM and pt returned to EOB. ACOUSTICAL ENGINEER entered room to assist. Pt was able [...] Mcgill this morning via phone. Family prefers [facility]), as they live 10-20minutes away from facility. HAYDEN contacted security coordinator via text, number provided by family, phone # [phone]. farhan Astorga, fax # [phone]. CM sent updated referral. Patient will need precert. Family, sister Jojo will be able to transport at discharge, but will been 24 hour notice to be able to transport to facility. CM plan is SNF/rehab possible early next week pending medical readiness, and precert. Update 3:27 pm - updated PT and OT notes faxed to [facility] KENNEY Zaragoza * Laura Cervantes [...] renal function - No emergent need of LAMP SHADE MAKER - Monitor H/H and transfuse for Hgb [...] POC-GLUCOSE 162 (H) 70 - 110 mg/dL Director Content Marketing [id number] ABG Status: Abnormal Collection Time: 12/10/24 6:42 [...] ARTERIAL 8.5 (L) 12.0 - 18.0 g/dL [facility] COLLECTION SITE Left Radial Arterial [...] POC-GLUCOSE 195 (H) 70 - 110 mg/dL Director Content Marketing [id number] Glucose, Nova Meter Status: Abnormal Collection Time: 12/10/24 6:32 PM Result Value Ref Range POC-GLUCOSE 235 (H) 70 - 110 mg/dL Director Content Marketing [id number] Glucose, Nova Meter Status: Abnormal Collection Time: 12/10/24 7:38 PM Result Value Ref Range POC-GLUCOSE 201 (H) 70 - 110 mg/dL Director Content Marketing [id number] US paracentesis Narrative: ULTRASOUND-GUIDED PARACENTESIS HISTORY: Ascites. ATTENDING PHYSICIAN: Dr. Haseeb Gil PHYSICIAN SIDE STITCHER: Sujit Blackman PA-C FINDINGS: After informed consent [...] Pending blood gas improvement And more awake consumer marketing manager working discharge plan, likely dc 1-2 days pending improvement, plan for paracentesis today * Deysi Foss MD - 12/10/2024 8:13 AM EDT EP progress note Patient Name: Mary Coronel Admission Date: 11/30/2024 Primary Care Provider: [facility] Find-a-Doc Chief Complaint/Reason for Consult: No chief complaint on file. History of Present Illness: Mary Coronel is a 64 y.o. female, admitted on: 11/30/2024 1:43 AM. presented to [facility] with swollen abdomen, abdominal discomfort and bilateral lower extremity pitting edema. Patient's BUN/creatinine elevated, and patient subsequently transferred to [facility] for hepatorenal syndrome evaluation. Admits to 4 [...] tablet 1 mg 1 mg oral TID Alejandrelaura Boo MD 1 mg at 12/09/242109 dextrose [...] Culture And Stain AFB Culture And Stain [facility] Non-Rn Private Duty Cytology [facility] Non-Rn Private Duty Cytology DIFFERENTIAL, BODY FLUID DIFFERENTIAL, BODY FLUID Body Fluid/CSF - Path Review () Body Fluid/CSF - Path Review () [facility] BONE MARROW SMEAR, ASPIRATION, AND STAIN [facility] BONE MARROW SMEAR, ASPIRATION, AND [...] BODY REMOVAL; Surgeon: Scott Daley MD; Location: [facility]; Service: Gastroenterology; Laterality: N/A; Allergies: No [...] Normal range of motion. Integumentary: Warm, Dry, [place]. Neurologic: No obvious focal deficit Psychiatric: Cooperative, Appropriate mood & affect. Labs, Imaging, and Other Studies: Echo Results (last 7 days) Procedure Component Value Units Date/Time ECHO COMPLETE (DOPPLER / COLOR) W OR WO CONTRAST [[id number]] Collected: 11/30/24 3075 Order Status: Completed Updated: 11/30/24 1046 Narrative: TRANSTHORACIC ECHOCARDIOGRAPHY REPORT Demographics Patient Name: RIN JONES : 1960 Age: 64 year(s) Corporate ID Number: [id number] Gender Female Audio Director: Giovanna Rock Height: 67 inches [facility] Referring Physician: HUEY HURTADO Weight: 225 pounds Interpreting JESSICA RAYMOND MD BMI: 35.24 kg/m^2 Physician: Date of Service: 11/30/2024 Blood Pressure: 118/59 mmHg Room Number: 579 Type of Study: TTE procedure: ECHO COMPLETE (DOPPLER / COLOR) W OR WO CONTRAST. Patient Status: Routine IP [facility] History/Tech Notes: Indication: shortness [...] 1.35 m/s E/A ratio: 0.97 m/s Volume gzcpbenwq815.99 LV length: 8.51 cm ml Volume axfqvtlc69.96 ml LVOT diameter: 1.79 cm Normal sized [...] Valve TR velocity: 2.51 m/s TR gradient: 25.05658 mmHg Estimated RAP: 3 mmHg RVSP: 28.12 [...] (DOPPLER / COLOR) W OR WO CONTRAST [[id number]] Collected: 11/30/24724 Order Status: Completed Updated: 11/30/241045 Narrative: TRANSTHORACIC ECHOCARDIOGRAPHY REPORT Demographics Patient Name: RIN JONES : 1960 Age: 64 year(s) Corporate ID Number: [id number] Gender Female Audio Director: Giovanna Rock Height: 67 inches [facility] Referring Physician: HUEY HURTADO Weight: 225 [...] 1.35 m/s E/A ratio: 0.97 m/s Volume vitvixzag265.99 LV length: 8.51 cm ml Volume xcohtvzf41.96 ml LVOT diameter: 1.79 cm Normal sized [...] Valve TR velocity: 2.51 m/s TR gradient: 25.16665 mmHg Estimated RAP: 3 mmHg RVSP: 28.12 [...] imaging. Assessment and Plan: *Paroxysmal Atrial Fib [id number] of 3 to 4 also have some [...] Patient cannot take anticoagulation for A-fib despite [id number] because of multiple issue including GI bleeding [...] history as below. She initially presented to [facility] with swollen abdomen, abdominal discomfort, and bilateral lower extremity pain. Her creatinine was elevated and as a result, she was transferred to [facility] for he patorenal syndrome. Upon arrival [...] BODY REMOVAL; Surgeon: Scott Daley MD; Location: [facility]; Service: Gastroenterology; Laterality: N/A; Allergies: No [...] ARTERIAL 8.7 (L) 12.0 - 18.0 g/dL [facility] COLLECTION SITE Left Radial Arterial Puncture Yes Blood Gas O2 Delivery Device Cannula Oxygen Flow Rate 4 Blood Gas PT Temperature C 37.0 Sen's Test Acceptable Critical Values Notification Critical Blood gas called to DAYANARA MILES . [place] [id number] and confirmed on12/09/2024 06:51 ABG Number of Draw Attempts 1 FIO2 Blood Gas Temperature Corrected Results No No Glucose, Nova Meter Status: Abnormal Collection Time: 12/09/24 11:17 AM Result Value Ref Range POC-GLUCOSE 173 (H) 70 - 110 mg/dL Director Content Marketing [id number] Glucose, Nova Meter Status: Abnormal Collection Time: 12/09/24 4:23 PM Result Value Ref Range POC-GLUCOSE 173 (H) 70 - 110 mg/dL Director Content Marketing [id number] Glucose, Nova Meter Status: Abnormal Collection Time: 12/09/24 7:30 PM Result Value Ref Range POC-GLUCOSE 158 (H) 70 - 110 mg/dL Director Content Marketing [id number] Glucose, Nova Meter Status: Abnormal Collection Time: 12/10/24 5:52 AM Result Value Ref Range POC-GLUCOSE 162 (H) 70 - 110 mg/dL Director Content Marketing [id number] Radiology Radiology Results (last day) Procedure Component Value Units Date/Time XR chest AP portable [[id number]] Collected: 12/09/24 0844 Order Status: Completed Updated: [...] Fungus Culture W/ROSA MARIA Or Nimisha Ink [[id number]] Collected: 11/30/24 160 Order Status: Completed Specimen: Peritoneal Fluid from Body Fluid Updated: 12/07/24 170 Result No fungus isolated at 1 week. ROSA MARIA Prep No fungal elements seen Narrative: Specimen Description: peritoneal fluid AFB Culture And Stain [[id number]] Collected: 11/30/24 160 Order Status: Completed Specimen: Peritoneal Fluid from Body Fluid Updated: 12/07/24 170 Result No Acid Fast Bacilli isolated at 1 week. AFB Smear No acid fast bacilli seen Narrative: Specimen Description: peritoneal fluid Anaerobic Culture [[id number]] Collected: 11/30/24 160 Order Status: Completed Specimen: Peritoneal Fluid from Body Fluid Updated: 12/05/24 0634 Result No Anaerobic growth Narrative: Specimen Description: peritoneal fluid Blood Culture [[id number]] Collected: 11/30/24 0340 Order Status: Completed Specimen: Blood from Arm, Left Updated: 12/05/24 0501 Result No growth in 5 days Blood Culture [[id number]] Collected: 11/30/24 0342 Order Status: Completed Specimen: Blood from Arm, Right Updated: 12/05/24 0501 Result No growth in 5 days Body Fluid Culture + Gram Stain [[id number]] Collected: 11/30/24 160 Order Status: Completed Specimen: Peritoneal Fluid from Body Fluid Updated: 12/03/24 0907 Result No growth Gram Stain Result No organisms seen No cells seen Narrative: Specimen Description: peritoneal fluid Body Fluid/CSF - Path Review () [[id number]] Collected: 11/30/24 160 Order Status: Completed Specimen: [...] to continue with albumin/diuretics no indication for LAMP SHADE MAKER No significant pleural effusion for thoracentesis If needed repeat chest x-ray. Otherwise continue diuresis Pulmonary continue to follow Case discussed during round. I have personally evaluated the patient and performed a [id number] diagnostic evaluation on this patient; I have reviewed history, performed physical examination, reviewed laboratory studies. , andreviewed images independent of radiologist. I have actively directed the medical care, formulated assessemnt and plan of care. Patient requires a high complexity of decision making for assessment. 34 minutes critical care time was spent. Voice manager fiber technology ([employer]) is used for dictation of this note and sound-alike words might be erroneously placed despite reviewing the note for accuracy.Errors in dictation may reflect use of voice recognition software and not all errors in manager fiber may have been detectedprior to signing * [...] POC-GLUCOSE 159 (H) 70 - 110 mg/dL Director Content Marketing [id number] Glucose, Nova Meter Status: Abnormal Collection Time: 12/08/24 8:08 PM Result Value Ref Range POC-GLUCOSE 172 (H) 70 - 110 mg/dL Director Content Marketing [id number] Basic Metabolic Panel Status: Abnormal Collection Time: [...] POC-GLUCOSE 148 (H) 70 - 110 mg/dL Director Content Marketing [id number] ABG Status: Abnormal Collection Time: 12/09/24 6:37 [...] ARTERIAL 8.7 (L) 12.0 - 18.0 g/dL [facility] COLLECTION SITE Left Radial Arterial Puncture Yes Blood Gas O2 Delivery Device Cannula Oxygen Flow Rate 4 Blood Gas PT Temperature C 37.0 Sen's Test Acceptable Critical Values Notification Critical Blood gas called to DAYANARA MILES . [place] [id number] and confirmed on12/09/2024 06:51 ABG Number of Draw Attempts 1 FIO2 Blood Gas Temperature Corrected Results No No Glucose, Nova Meter Status: Abnormal Collection Time: 12/09/24 11:17 AM Result Value Ref Range POC-GLUCOSE 173 (H) 70 - 110 mg/dL Director Content Marketing [id number] XR chest AP portable Narrative: PORTABLE CHEST. [...] Pending blood gas improvement And more awake consumer marketing manager working discharge plan * Tori Kamara [...] Ext: +++ Pedal edema , no cyanosis SUPERVISOR DRIED YEAST: Alert, No focal deficit noted grossly Psy: Cooperative Labs: Results for orders placed or performed during the hospital encounter of 11/30/24 (from the past 24 hours) Glucose, Nova Meter Status: Abnormal Collection Time: 12/08/24 10:57 AM Result Value Ref Range POC-GLUCOSE 191 (H) 70 - 110 mg/dL Director Content Marketing [id number] Glucose, Nova Meter Status: Abnormal Collection Time: 12/08/24 3:34 PM Result Value Ref Range POC-GLUCOSE 159 (H) 70 - 110 mg/dL Director Content Marketing [id number] Glucose, Nova Meter Status: Abnormal Collection Time: 12/08/24 8:08 PM Result Value Ref Range POC-GLUCOSE 172 (H) 70 - 110 mg/dL Director Content Marketing [id number] Basic Metabolic Panel Status: Abnormal Collection Time: [...] POC-GLUCOSE 148 (H) 70 - 110 mg/dL Director Content Marketing [id number] ABG Status: Abnormal Collection Time: 12/09/24 6:37 [...] ARTERIAL 8.7 (L) 12.0 - 18.0 g/dL [facility] COLLECTION SITE Left Radial Arterial Puncture Yes Blood Gas O2 Delivery Device Cannula Oxygen Flow Rate 4 Blood Gas PT Temperature C 37.0 Sen's Test Acceptable Critical Values Notification Critical Blood gas called to DAYANARA MILES . [place] [id number] and confirmed on12/09/2024 06:51 ABG Number of [...] Intake/Output Summary (Last 24 hours) at 12/09/2024 0966 Last data filed at 12/09/2024 0300 Gross [...] renal function - No emergent need of LAMP SHADE MAKER - Monitor H/H and transfuse for Hgb less than 7.0 Discussed with patient Follow up with [facility] in 1-2 weeks with renal function panel * KENNEY Zaragoza - 12/09/2024 8:04 AM EDTSummary: Referral Pending Discharge Plan Progress Note Family/Sister prefers [facility]. SW/CM sent referral this AM. Currently pending. [facility] [address] [place] [address] KENNEY Zaragoza * Blanka Malagon MD - 12/09/2024 6:30 AM EDT Images from the original note were not included. PULMONARY AND CRITICAL CARE Consult Note Date of Service: 12/09/2024 HPI: This is a 64 y.o. year old female with past medical history as below. She initially presented to [facility] with swollen abdomen, abdominal discomfort, and bilateral lower extremity pain. Her creatinine was elevated and as a result, she was transferred to [facility] for he patorenal syndrome. Upon arrival [...] BODY REMOVAL; Surgeon: Scott Daley MD; Location: [facility]; Service: Gastroenterology; Laterality: N/A; Allergies: No [...] ARTERIAL 8.8 (L) 12.0 - 18.0 g/dL [facility] COLLECTION SITE Right Brachial Arterial Puncture Yes Blood Gas O2 Delivery Device Cannula Oxygen Flow Rate 4 Blood Gas PT Temperature C 37.0 Sen's Test Not Applicable Critical Values Notification Critical Blood gas called to KNOWN CONDITION . Results acknowledged/read back to [id number] and confirmed on 12/08/2024 07:30 ABG Number of Draw Attempts 1 FIO2 Blood Gas Temperature Corrected Results No No Glucose, Nova Meter Status: Abnormal Collection Time: 12/08/24 10:57 AM Result Value Ref Range POC-GLUCOSE 191 (H) 70 - 110 mg/dL Director Content Marketing [id number] Glucose, Nova Meter Status: Abnormal Collection Time: 12/08/24 3:34 PM Result Value Ref Range POC-GLUCOSE 159 (H) 70 - 110 mg/dL Director Content Marketing [id number] Glucose, Nova Meter Status: Abnormal Collection Time: 12/08/24 8:08 PM Result Value Ref Range POC-GLUCOSE 172 (H) 70 - 110 mg/dL Director Content Marketing [id number] Basic Metabolic Panel Status: Abnormal Collection Time: [...] POC-GLUCOSE 148 (H) 70 - 110 mg/dL Director Content Marketing [id number] Radiology Radiology Results (last day) No results found for the last 24 hours. Microbiology: Microbiology Results (last 7 days) Procedure Component Value Units Date/Time Fungus Culture W/ROSA MARIA Or Nimisha Ink [[id number]] Collected: 11/30/24 1603 Order Status: Completed Specimen: Peritoneal Fluid from Body Fluid Updated: 12/07/24 1700 Result No fungus isolated at 1 week. ROSA MARIA Prep No fungal elements seen Narrative: Specimen Description: peritoneal fluid AFB Culture And Stain [[id number]] Collected: 11/30/24 1603 Order Status: Completed Specimen: Peritoneal Fluid from Body Fluid Updated: 12/07/24 1700 Result No Acid Fast Bacilli isolated at 1 week. AFB Smear No acid fast bacilli seen Narrative: Specimen Description: peritoneal fluid Anaerobic Culture [[id number]] Collected: 11/30/24 1603 Order Status: Completed Specimen: Peritoneal Fluid from Body Fluid Updated: 12/05/24 0634 Result No Anaerobic growth Narrative: Specimen Description: peritoneal fluid Blood Culture [[id number]] Collected: 11/30/24 0340 Order Status: Completed Specimen: Blood from Arm, Left Updated: 12/05/24 0501 Result No growth in 5 days Blood Culture [[id number]] Collected: 11/30/24 0342 Order Status: Completed Specimen: Blood from Arm, Right Updated: 12/05/24 0501 Result No growth in 5 days Body Fluid Culture + Gram Stain [[id number]] Collected: 11/30/24 1603 Order Status: Completed Specimen: Peritoneal Fluid from Body Fluid Updated: 12/03/24 0907 Result No growth Gram Stain Result No organisms seen No cells seen Narrative: Specimen Description: peritoneal fluid Body Fluid/CSF - Path Review () [[id number]] Collected: 11/30/24 160 Order Status: Completed Specimen: [...] to continue with albumin/diuretics no indication for LAMP SHADE MAKER No significant pleural effusion for thoracentesis If needed repeat chest x-ray. Otherwise continue diuresis Pulmonary twill follow . If ABG not improving ,or worsening mental status recommended ICU Case discussed during round. I have personally evaluated the patient and performed a hzvk-fk-fhmb diagnostic evaluation on this patient; I have reviewed history, performed physical examination, reviewed laboratory studies. , andreviewed images independent of radiologist. I have actively directed the medical care, formulated assessemnt and plan of care. Patient requires a high complexity of decision making for assessment. 34 minutes critical care time was spent. Voice manager fiber technology ([employer]) is used for dictation of this note and sound-alike words might be erroneously placed despite reviewing the note for accuracy.Errors in dictation may reflect use of voice recognition software and not all errors in manager fiber may have been detectedprior to signing * [...] Readiness for SNF - Bed Offer with [facility] Discharge Plan Progress Note SW/MANGO updated Rama T with [facility] regarding patient's ICU transfer cancellation.CM to follow up with Rama on 12/09 with updated PT/OT notes, MD progress notes of patients care, BiPaP/RT plan. [facility] is still offering bed for patient. Precert will be needed, [facility]. JOSE MANUEL/MANGO has attempted to call patient's sister, Jojo Dominguez x3 times, at # listed, , however, CM is experiencing phone issues and unable to call out. CM has informed bedside RN and SWIM INSTRUCTOR via [facility] Chat. KENNEY Zaragoza * KENNEY Zaragoza - 12/08/2024 1:29 PM EDTSummary: CM Assessment Care Coordination Initial Assessment Patient's readmit score is low at 12%. CM plan was to DC home/independent at baseline or with family/sister assistance. Sister, Jojo, stated she cannot care for patient if patient was to come homewith her, and patient needed rehab. CM sent referrals, patient had bed offers, [facility] offered bed first and [...] Transition Needs Expected Discharge Date: Off Track [facility], D - 12/10-12/12 Home or Post Acute Services Needed: (P) Post acute facilities (Rehab/SNF/etc) Does the patient have the ability to fill and receive their discharge medications: (P) Yes Discharge plan discussed: (P) The discharge plan was discussed with patient representative government relations. Discharge Barriers: (P) Test(s) Pending, Activity Type of Assistive Devices Needed for Discharge: (P) None Patient Discharge Goal: (P) Inpatient Rehab Facility, Residential Facility Mandated Reporting: (P) Not applicable PT/OT/RN NICU Recommendations PT Recommendations: Pending Hospital Stay OT Recommendations: Pending Hospital Stay RN NICU Recommendations: NA 12/08/24 1327 Home Environment Type [...] Assistive Devices Walker;Commode Current Lines, Tubes 3L/min [place] Special/Community Services Transport, discharge;Home, assistance Transition Needs Home or Post Acute Services Post acute facilities (Rehab/SNF/etc) Type of Post Acute Facility Services residential;Rehab Does the patient have the ability to fill and receive their discharge medications? Yes Discharge Plan Discussed The discharge plan was discussed with patient representative government relations. Discharge Plan Outcome Patient/family representative government relations agrees with the discharge plan Discharge Barriers Test(s) Pending;Activity Type of Assistive Devices Needed for Discharge None Patient Discharge Goal Inpatient Rehab Facility;Residential Facility Mandated Reporting Not applicable KENNEY Zaragoza * Deysi Foss MD - 12/08/2024 11:29 AM EDT EP progress note Patient Name: Mary Coronel Admission Date: 11/30/2024 Primary Care Provider: JACKIE Find-a-Doc Chief Complaint/Reason for Consult: No chief complaint on file. History of Present Illness: Mary Coronel is a 64 y.o. female, admitted on: 11/30/2024 1:43 AM. presented to [facility] with swollen abdomen, abdominal discomfort and bilateral lower extremity pitting edema. Patient's BUN/creatinine elevated, and patient subsequently transferred to [facility] for hepatorenal syndrome evaluation. Admits to 4 [...] Culture And Stain AFB Culture And Stain [facility] Non-Rn Private Duty Cytology [facility] Non-Rn Private Duty Cytology DIFFERENTIAL, BODY FLUID DIFFERENTIAL, BODY FLUID Body Fluid/CSF - Path Review () Body Fluid/CSF - Path Review () [facility] BONE MARROW SMEAR, ASPIRATION, AND STAIN [facility] BONE MARROW SMEAR, ASPIRATION, AND [...] Procedure: EGD, WITH FOREIGN BODY REMOVAL; Surgeon: Soctt Daley MD; Location: [facility]; Service: Gastroenterology; Laterality: N/A; Allergies: No [...] Normal range of motion. Integumentary: Warm, Dry, [place]. Neurologic: No obvious focal deficit Psychiatric: Cooperative, Appropriate mood & affect. Labs, Imaging, and Other Studies: Echo Results (last 7 days) Procedure Component Value Units Date/Time ECHO COMPLETE (DOPPLER / COLOR) W OR WO CONTRAST [[id number]] Collected: 11/30/24724 Order Status: Completed Updated: 11/30/24 1046 Narrative: TRANSTHORACIC ECHOCARDIOGRAPHY REPORT Demographics Patient Name: RIN JONES : 1960 Age: 64 year(s) Corporate ID Number: [id number] Gender Female Audio Director: Giovanna Rock Height: 67 inches [facility] Referring Physician: HUEY HURTADO Weight: 225 [...] 1.35 m/s E/A ratio: 0.97 m/s Volume mluphuszh300.99 LV length: 8.51 cm ml Volume pqxisqyi43.96 ml LVOT diameter: 1.79 cm Normal sized [...] Valve TR velocity: 2.51 m/s TR gradient: 25.90538 mmHg Estimated RAP: 3 mmHg RVSP: 28.12 [...] (DOPPLER / COLOR) W OR WO CONTRAST [[id number]] Collected: 11/30/24724 Order Status: Completed Updated: 11/30/24 1046 Narrative: TRANSTHORACIC ECHOCARDIOGRAPHY REPORT Demographics Patient Name: RIN JONES : 1960 Age: 64 year(s) Corporate ID Number: [id number] Gender Female Audio Director: Giovanna Rock Height: 67 inches [facility] Referring Physician: HUEY HURTADO Weight: 225 pounds Interpreting JESSICA RAYMOND MD BMI: 35.24 kg/m^2 Physician: Date of Service: 11/30/2024 Blood Pressure: 118/59 mmHg Room Number: 579 Type of Study: TTE procedure: ECHO COMPLETE (DOPPLER / COLOR) W OR WO CONTRAST. Patient Status: Routine IP [facility] Adequate visualization History/Tech Notes: Indication: [...] .99 LV length: 8.51 cm ml Volume sneftevl90.96 ml LVOT diameter: 1.79 cm Normal sized [...] Valve TR velocity: 2.51 m/s TR gradient: 25.32732 mmHg Estimated RAP: 3 mmHg RVSP: 28.12 [...] imaging. Assessment and Plan: *Paroxysmal Atrial Fib [id number] of 3 to 4 also have some [...] Patient cannot take anticoagulation for A-fib despite [id number] because of multiple issue including GI bleeding [...] clinical course, and response to therapy. * Mercytj Ben OTR/L - 12/08/2024 10:42 AM EDT Images from the original note were not included. Inpatient Occupational Therapy Treatment Note Patient Name: Mary Coronel Date of : 1960 Date of Treatment: 12/08/24 Start Time: 101 Stop Time: 1042 Session Duration: 30 minutes This patient is a 64 y.o. female admitted on 11/30/2024 with Anasarca [R60.1]. Past Medical History: Diagnosis Date Cirrhosis, non-alcoholic (HCC) Diabetes mellitus (HCC) Hypertension Past Surgical History: Procedure Laterality Date ESOPHAGOGASTRODUODENOSCOPY (EGD),REMOVAL FOREIGN BODY N/A 12/01/2024 Procedure: EGD, WITH FOREIGN BODY REMOVAL; Surgeon: Scott Daley MD; Location: [facility]; Service: Gastroenterology; Laterality: N/A; General Visit [...] 12.0 - 18.0 g/dL PaO2/FIO2 calculated 203.0 [facility] COLLECTION SITE Right Radial Arterial Puncture Yes Blood Gas PT Temperature C 37.0 Sen's Test Acceptable Critical Values Notification Critical Blood gas called to TRAY LORENZ RN . [place] [id number] and confirmed on 12/07/2024 10:51 ABG Number of Draw Attempts 1 FIO2 21.0 Blood Gas Temperature Corrected Results No No Glucose, Nova Meter Status: Abnormal Collection Time: 12/07/24 10:54 AM Result Value Ref Range POC-GLUCOSE 146 (H) 70 - 110 mg/dL Director Content Marketing [id number] Blood gas, arterial Status: Abnormal Collection Time: [...] ARTERIAL 8.9 (L) 12.0 - 18.0 g/dL [facility] COLLECTION SITE Right Radial Arterial Puncture Yes Blood Gas O2 Delivery Device Cannula Oxygen Flow Rate 2 Blood Gas PT Temperature C 37.0 Sen's Test Unacceptable Vent Mode Other Critical Values Notification Critical Blood gas called to DR MALAGON . [place] [id number] and confirmed on 12/07/2024 14:14 ABG Number of Draw Attempts 1 Performed by: CD FIO2 Blood Gas Temperature Corrected Results No No Glucose, Nova Meter Status: Abnormal Collection Time: 12/07/24 3:39 PM Result Value Ref Range POC-GLUCOSE 159 (H) 70 - 110 mg/dL Director Content Marketing [id number] ABG Status: Abnormal Collection Time: 12/07/24 4:21 [...] 12.0 - 18.0 g/dL PaO2/FIO2 calculated 359.0 [facility] COLLECTION SITE Right Brachial Arterial Puncture Yes Blood Gas O2 Delivery Device NIV Blood Gas PT Temperature C 37.0 Sen's Test Not Applicable Critical Values Notification Critical Blood gas called to SEB LORENZ RN . Results acknowledged/read back to [id number] and confirmed on 12/07/2024 16:42 ABG Number of Draw Attempts 2 Set Rate 16.0 IPAP 10 EPAP 6 FIO2 50.0 Blood Gas Temperature Corrected Results No No Glucose, Nova Meter Status: Abnormal Collection Time: 12/07/24 7:54 PM Result Value Ref Range POC-GLUCOSE 164 (H) 70 - 110 mg/dL Director Content Marketing [id number] Basic Metabolic Panel Status: Abnormal Collection Time: [...] POC-GLUCOSE 136 (H) 70 - 110 mg/dL Director Content Marketing [id number] Blood gas, arterial Status: Abnormal Collection Time: [...] ARTERIAL 8.8 (L) 12.0 - 18.0 g/dL [facility] COLLECTION SITE Right Brachial Arterial Puncture Yes Blood Gas O2 Delivery Device Cannula Oxygen Flow Rate 4 Blood Gas PT Temperature C 37.0 Sen's Test Not Applicable Critical Values Notification Critical Blood gas called to KNOWN CONDITION . Results acknowledged/read back to [id number] and confirmed on 12/08/2024 07:30 ABG Number [...] Pending blood gas improvement And more awake consumer marketing manager working discharge plan * Hill Boo [...] Ext: +++ Pedal edema , no cyanosis SUPERVISOR DRIED YEAST: Alert, No focal deficit noted grossly Psy: [...] 376 ms QTC Interval 462 ms P [place] 39 degrees R AXIS (MCT) -3 degrees T Wave [place] 4 degrees [place] Diagnosis Normal sinus rhythm Nonspecific T wave [...] 12.0 - 18.0 g/dL PaO2/FIO2 calculated 203.0 [facility] COLLECTION SITE Right Radial Arterial Puncture Yes Blood Gas PT Temperature C 37.0 Sen's Test Acceptable Critical Values Notification Critical Blood gas called to TRAY LORENZ RN . [place] [id number] and confirmed on 12/07/2024 10:51 ABG Number of Draw Attempts 1 FIO2 21.0 Blood Gas Temperature Corrected Results No No Glucose, Nova Meter Status: Abnormal Collection Time: 12/07/24 10:54 AM Result Value Ref Range POC-GLUCOSE 146 (H) 70 - 110 mg/dL Director Content Marketing [id number] Blood gas, arterial Status: Abnormal Collection Time: [...] ARTERIAL 8.9 (L) 12.0 - 18.0 g/dL [facility] COLLECTION SITE Right Radial Arterial Puncture Yes Blood Gas O2 Delivery Device Cannula Oxygen Flow Rate 2 Blood Gas PT Temperature C 37.0 Sen's Test Unacceptable Vent Mode Other Critical Values Notification Critical Blood gas called to DR MALAGON . [place] [id number] and confirmed on 12/07/2024 14:14 ABG Number of Draw Attempts 1 Performed by: CD FIO2 Blood Gas Temperature Corrected Results No No Glucose, Nova Meter Status: Abnormal Collection Time: 12/07/24 3:39 PM Result Value Ref Range POC-GLUCOSE 159 (H) 70 - 110 mg/dL Director Content Marketing [id number] ABG Status: Abnormal Collection Time: 12/07/24 4:21 [...] 12.0 - 18.0 g/dL PaO2/FIO2 calculated 359.0 [facility] COLLECTION SITE Right Brachial Arterial Puncture Yes Blood Gas O2 Delivery Device NIV Blood Gas PT Temperature C 37.0 Sen's Test Not Applicable Critical Values Notification Critical Blood gas called to SEB LORENZ RN . Results acknowledged/read back to [id number] and confirmed on 12/07/2024 16:42 ABG Number of Draw Attempts 2 Set Rate 16.0 IPAP 10 EPAP 6 FIO2 50.0 Blood Gas Temperature Corrected Results No No Glucose, Nova Meter Status: Abnormal Collection Time: 12/07/24 7:54 PM Result Value Ref Range POC-GLUCOSE 164 (H) 70 - 110 mg/dL Director Content Marketing [id number] Basic Metabolic Panel Status: Abnormal Collection Time: [...] POC-GLUCOSE 136 (H) 70 - 110 mg/dL Director Content Marketing [id number] Blood gas, arterial Status: Abnormal Collection Time: [...] ARTERIAL 8.8 (L) 12.0 - 18.0 g/dL [facility] C[facility] COLLECTION SITE Right Brachial Arterial Puncture Yes Blood Gas O2 Delivery Device Cannula Oxygen Flow Rate 4 Blood Gas PT Temperature C 37.0 Sen's Test Not Applicable Critical Values Notification Critical Blood gas called to KNOWN CONDITION . Results acknowledged/read back to [id number] and confirmed on 12/08/2024 07:30 ABG Number [...] renal function - No emergent need of LAMP SHADE MAKER - Monitor H/H and transfuse for Hgb [...] history as below. She initially presented to [facility] with swollen abdomen, abdominal discomfort, and bilateral lower extremity pain. Her creatinine was elevated and as a result, she was transferred to [facility] for he patorenal syndrome. Upon arrival [...] BODY REMOVAL; Surgeon: Scott Daley MD; Location: [facility]; Service: Gastroenterology; Laterality: N/A; Allergies: No [...] 376 ms QTC Interval 462 ms P [place] 39 degrees R AXIS (MCT) -3 degrees T Wave [place] 4 degrees [place] Diagnosis Normal sinus rhythm Nonspecific T wave [...] 12.0 - 18.0 g/dL PaO2/FIO2 calculated 203.0 [facility] COLLECTION SITE Right Radial Arterial Puncture Yes Blood Gas PT Temperature C 37.0 Sen's Test Acceptable Critical Values Notification Critical Blood gas called to TRAY LORENZ RN . [place] [id number] and confirmed on 12/07/2024 10:51 ABG Number of Draw Attempts 1 FIO2 21.0 Blood Gas Temperature Corrected Results No No Glucose, Nova Meter Status: Abnormal Collection Time: 12/07/24 10:54 AM Result Value Ref Range POC-GLUCOSE 146 (H) 70 - 110 mg/dL Director Content Marketing [id number] Blood gas, arterial Status: Abnormal Collection Time: [...] ARTERIAL 8.9 (L) 12.0 - 18.0 g/dL [facility] COLLECTION SITE Right Radial Arterial Puncture Yes Blood Gas O2 Delivery Device Cannula Oxygen Flow Rate 2 Blood Gas PT Temperature C 37.0 Sen's Test Unacceptable Vent Mode Other Critical Values Notification Critical Blood gas called to DR MALAGON . Results [place] [id number] and confirmed on 12/07/2024 14:14 ABG Number of Draw Attempts 1 Performed by: CD FIO2 Blood Gas Temperature Corrected Results No No Glucose, Nova Meter Status: Abnormal Collection Time: 12/07/24 3:39 PM Result Value Ref Range POC-GLUCOSE 159 (H) 70 - 110 mg/dL Director Content Marketing [id number] ABG Status: Abnormal Collection Time: 12/07/24 4:21 [...] 12.0 - 18.0 g/dL PaO2/FIO2 calculated 359.0 [facility] COLLECTION SITE Right Brachial Arterial Puncture Yes Blood Gas O2 Delivery Device NIV Blood Gas PT Temperature C 37.0 Sen's Test Not Applicable Critical Values Notification Critical Blood gas called to SEB LORENZ RN . Results acknowledged/read back to [id number] and confirmed on 12/07/2024 16:42 ABG Number of Draw Attempts 2 Set Rate 16.0 IPAP 10 EPAP 6 FIO2 50.0 Blood Gas Temperature Corrected Results No No Glucose, Nova Meter Status: Abnormal Collection Time: 12/07/24 7:54 PM Result Value Ref Range POC-GLUCOSE 164 (H) 70 - 110 mg/dL Director Content Marketing [id number] Basic Metabolic Panel Status: Abnormal Collection Time: [...] POC-GLUCOSE 136 (H) 70 - 110 mg/dL Director Content Marketing [id number] Blood gas, arterial Status: Abnormal Collection Time: [...] ARTERIAL 8.8 (L) 12.0 - 18.0 g/dL [facility] COLLECTION SITE Right Brachial Arterial Puncture Yes Blood Gas O2 Delivery Device Cannula Oxygen Flow Rate 4 Blood Gas PT Temperature C 37.0 Sen's Test Not Applicable Critical Values Notification Critical Blood gas called to KNOWN CONDITION . Results acknowledged/read back to [id number] and confirmed on 12/08/2024 07:30 ABG Number of Draw Attempts 1 FIO2 Blood Gas Temperature Corrected Results No No Radiology Radiology Results (last day) Procedure Component Value Units Date/Time XR chest AP portable [[id number]] Collected: 12/07/24 155 Order Status: Completed Updated: 12/07/24 164 Narrative: PORTABLE CHEST; HISTORY: Renal failure. COMPARISON: 1 day prior. FINDINGS: The heart is enlarged. The mediastinum is unremarkable. There has been interval improvement in interstitial opacities. There is no new infiltrate or pleural effusion. There is no pneumothorax. Impression: Interval improvement in interstitial opacities. Images reviewed, interpreted, and dictated by Dr. Lizzie Myles. Transcribed by Sadnra Ramsey PA-C. Microbiology: Microbiology Results (last 7 days) Procedure Component Value Units Date/Time Fungus Culture W/ROSA MARIA Or Nimisha Ink [[id number]] Collected: 11/30/24 160 Order Status: Completed Specimen: Peritoneal Fluid from Body Fluid Updated: 12/07/24 170 Result No fungus isolated at 1 week. ROSA MARIA Prep No fungal elements seen Narrative: Specimen Description: peritoneal fluid AFB Culture And Stain [[id number]] Collected: 11/30/24 160 Order Status: Completed Specimen: Peritoneal Fluid from Body Fluid Updated: 12/07/24 170 Result No Acid Fast Bacilli isolated at 1 week. AFB Smear No acid fast bacilli seen Narrative: Specimen Description: peritoneal fluid Anaerobic Culture [[id number]] Collected: 11/30/24 1603 Order Status: Completed Specimen: Peritoneal Fluid from Body Fluid Updated: 12/05/24 0634 Result No Anaerobic growth Narrative: Specimen Description: peritoneal fluid Blood Culture [[id number]] Collected: 11/30/24 0340 Order Status: Completed Specimen: Blood from Arm, Left Updated: 12/05/24 0501 Result No growth in 5 days Blood Culture [[id number]] Collected: 11/30/24 0342 Order Status: Completed Specimen: Blood from Arm, Right Updated: 12/05/24 0501 Result No growth in 5 days Body Fluid Culture + Gram Stain [[id number]] Collected: 11/30/24 1603 Order Status: Completed Specimen: Peritoneal Fluid from Body Fluid Updated: 12/03/24 0907 Result No growth Gram Stain Result No organisms seen No cells seen Narrative: Specimen Description: peritoneal fluid Body Fluid/CSF - Path Review () [[id number]] Collected: 11/30/24 1603 Order Status: Completed Specimen: [...] to continue with albumin/diuretics no indication for LAMP SHADE MAKER No significant pleural effusion for thoracentesis If needed repeat chest x-ray. Otherwise continue diuresis Pulmonary twill follow . If ABG not improving ,or worsening mental status recommended ICU Case discussed during round. I have personally evaluated the patient and performed a jcrp-co-cmap diagnostic evaluation on this patient; I have reviewed history, performed physical examination, reviewed laboratory studies. , andreviewed images independent of radiologist. I have actively directed the medical care, formulated assessemnt and plan of care. Patient requires a high complexity of decision making for assessment. 34 minutes critical care time was spent. Voice manager fiber technology ([employer]) is used for dictation of this note and sound-alike words might be erroneously placed despite reviewing the note for accuracy.Errors in dictation may reflect use of voice recognition software and not all errors in manager fiber may have been detectedprior to signing * [...] admitted on: 11/30/2024 1:43 AM. presented to [facility] with swollen abdomen, abdominal discomfort and bilateral lower extremity pitting edema. Patient's BUN/creatinine elevated, and patient subsequently transferred to [facility] for hepatorenal syndrome evaluation. Admits to 4 [...] 200 mg oral Daily 200 mg at 12/07/24936 amoxicillin-clavulanate 1 tablet oral BID 1 tablet [...] Culture And Stain AFB Culture And Stain [facility] Non-Rn Private Duty Cytology [facility] Non-Rn Private Duty Cytology DIFFERENTIAL, BODY FLUID DIFFERENTIAL, BODY FLUID Body Fluid/CSF - Path Review () Body Fluid/CSF - Path Review () [facility] BONE MARROW SMEAR, ASPIRATION, AND STAIN [facility] BONE MARROW SMEAR, ASPIRATION, AND [...] BODY REMOVAL; Surgeon: Scott Daley MD; Location: [facility]; Service: Gastroenterology; Laterality: N/A; Allergies: No [...] Normal range of motion. Integumentary: Warm, Dry, [place]. Neurologic: No obvious focal deficit Psychiatric: Cooperative, Appropriate mood & affect. Labs, Imaging, and Other Studies: Echo Results (last 7 days) Procedure Component Value Units Date/Time ECHO COMPLETE (DOPPLER / COLOR) W OR WO CONTRAST [[id number]] Collected: 11/30/2425 Order Status: Completed Updated: 11/30/24 104 Narrative: TRANSTHORACIC ECHOCARDIOGRAPHY REPORT Demographics Patient Name: RIN JONES : 1960 Age: 64 year(s) Corporate ID Number: [id number] Gender Female Audio Director: Giovanna Rock Height: 67 inches [facility] Referring Physician: HUEY HURTADO Weight: 225 [...] .99 LV length: 8.51 cm ml Volume dlknemxc52.96 ml LVOT diameter: 1.79 cm Normal sized [...] Valve TR velocity: 2.51 m/s TR gradient: 25.10173 mmHg Estimated RAP: 3 mmHg RVSP: 28.12 [...] (DOPPLER / COLOR) W OR WO CONTRAST [[id number]] Collected: 11/30/24724 Order Status: Completed Updated: 11/30/24 104 Narrative: TRANSTHORACIC ECHOCARDIOGRAPHY REPORT Demographics Patient Name: RIN JONES : 1960 Age: 64 year(s) Corporate ID Number: [id number] Gender Female Audio Director: Giovanna Rock Height: 67 inches [facility] Referring Physician: HUEY HURTADO Weight: 225 pounds Interpreting JESSICA RAYMOND MD BMI: 35.24 kg/m^2 Physician: Date of Service: 11/30/2024 Blood Pressure: 118/59 mmHg Room Number: 579 Type of Study: TTE procedure: ECHO COMPLETE (DOPPLER / COLOR) W OR WO CONTRAST. Patient Status: Routine IP Study Location: [facility] Quality: Adequate visualization History/Tech Notes: Indication: shortness [...] 1.35 m/s E/A ratio: 0.97 m/s Volume oojbjfdxm425.99 LV length: 8.51 cm ml Volume zeegvqck58.96 ml LVOT diameter: 1.79 cm Normal sized [...] Valve TR velocity: 2.51 m/s TR gradient: 25.31365 mmHg Estimated RAP: 3 mmHg RVSP: 28.12 [...] imaging. Assessment and Plan: *Paroxysmal Atrial Fib [id number] of 2 also have some wide-complex tachycardia [...] 378 ms QTC Interval 462 ms P [place] 28 degrees R AXIS (MCT) -4 degrees T Wave [place] 21 degrees [place] Diagnosis Normal sinus rhythm Septal infarct , age undetermined Abnormal ECG When compared with ECG of 04-DEC-2024 20:08, Septal infarct is now present Nonspecific T wave abnormality no longer evident in Anterior leads Glucose, Nova Meter Status: Abnormal Collection Time: 12/06/24 4:06 PM Result Value Ref Range POC-GLUCOSE 134 (H) 70 - 110 mg/dL Director Content Marketing [id number] Glucose, Nova Meter Status: Abnormal Collection Time: 12/06/24 7:26 PM Result Value Ref Range POC-GLUCOSE 170 (H) 70 - 110 mg/dL Director Content Marketing [id number] CBC - Hemogram (SJ-BKR) Status: Abnormal Collection [...] POC-GLUCOSE 159 (H) 70 - 110 mg/dL Director Content Marketing [id number] ECG 12 lead Status: None (In process) Collection Time: 12/07/24 10:29 AM Result Value Ref Range VENTRICULAR RATE EKG/MIN 91 BPM ATRIAL RATE (MCT) 91 BPM [place] Interval 142 ms QRS-INTERVAL (MSEC) 88 ms QT Interval 376 ms QTC Interval 462 ms P [place] 39 degrees R AXIS (MCT) -3 degrees T Wave [place] 4 degrees [place] Diagnosis Normal sinus rhythm Nonspecific T wave abnormality Abnormal ECG When compared with ECG of 06-DEC-2024 13:16, No significant change was found Glucose, Nova Meter Status: Abnormal Collection Time: 12/07/24 10:54 AM Result Value Ref Range POC-GLUCOSE 146 (H) 70 - 110 mg/dL Director Content Marketing [id number] XR chest AP portable Narrative: PORTABLE CHEST; [...] ordered Need to be transferred to ICU consumer marketing manager working discharge plan * Lian Dominguez [...] Orientation: Anterior;Left Site Assessment Red;Yellow [place]-Wound Assessment [place] Odor None Pressure Injury Stage 2 Wound care performing NDNQI rounds. Patient on JORJE surface, agreeable to assessment. During head totoe skin inspection a MDRPI found on patients left anterior thigh due to urinary catheter tubing. MDRPI verified by second wound care sales team leader. 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 [employer]: Alert, No focal deficit noted grossly Psy: Cooperative Labs: Results for orders placed or performed during the hospital encounter of 11/30/24 (from the past 24 hours) Glucose, Nova Meter Status: Abnormal Collection Time: 12/06/24 10:36 AM Result Value Ref Range POC-GLUCOSE 150 (H) 70 - 110 mg/dL Director Content Marketing [id number] ECG 12 lead Status: None (In process) Collection Time: 12/06/24 1:16 PM Result Value Ref Range VENTRICULAR RATE EKG/MIN 90 BPM ATRIAL RATE (MCT) 90 BPM [place] Interval 142 ms QRS-INTERVAL (MSEC) 92 ms QT Interval 378 ms QTC Interval 462 ms P [place] 28 degrees R AXIS (MCT) -4 degrees T Wave [place] 21 degrees [place] Diagnosis Normal sinus rhythm Septal infarct , age undetermined Abnormal ECG When compared with ECG of 04-DEC-2024 20:08, Septal infarct is now present Nonspecific T wave abnormality no longer evident in Anterior leads Glucose, Nova Meter Status: Abnormal Collection Time: 12/06/24 4:06 PM Result Value Ref Range POC-GLUCOSE 134 (H) 70 - 110 mg/dL Director Content Marketing [id number] Glucose, Nova Meter Status: Abnormal Collection Time: 12/06/24 7:26 PM Result Value Ref Range POC-GLUCOSE 170 (H) 70 - 110 mg/dL Director Content Marketing [id number] CBC - Hemogram (SJ-BKR) Status: Abnormal Collection [...] POC-GLUCOSE 159 (H) 70 - 110 mg/dL Director Content Marketing [id number] XR chest AP portable Narrative: PORTABLE CHEST; [...] for GFR - No emergent need of LAMP SHADE MAKER - Monitor H/H and transfuse for Hgb [...] Coronel Admission Date: 11/30/2024 Primary Care Provider: [facility] Find-a-Doc Chief Complaint/Reason for Consult: No chief complaint on file. History of Present Illness: Mary Coronel is a 64 y.o. female, admitted on: 11/30/2024 1:43 AM. presented to [facility] with swollen abdomen, abdominal discomfort and bilateral lower extremity pitting edema. Patient's BUN/creatinine elevated, and patient subsequently transferred to [facility] for hepatorenal syndrome evaluation. Admits to 4 [...] 550 mg 550 mg oral BID Destiney Felipe ÁNGEL Llanes 550 mg at 12/06/24 0857 sodium chloride [...] Culture And Stain AFB Culture And Stain [facility] Non-Rn Private Duty Cytology [facility] Non-Rn Private Duty Cytology DIFFERENTIAL, BODY FLUID DIFFERENTIAL, BODY FLUID Body Fluid/CSF - Path Review () Body Fluid/CSF - Path Review () [facility] BONE MARROW SMEAR, ASPIRATION, AND STAIN [facility] BONE MARROW SMEAR, ASPIRATION, AND [...] BODY REMOVAL; Surgeon: Scott Daley MD; Location: [facility]; Service: Gastroenterology; Laterality: N/A; Allergies: No [...] Normal range of motion. Integumentary: Warm, Dry, [place]. Neurologic: No obvious focal deficit Psychiatric: Cooperative, Appropriate mood & affect. Labs, Imaging, and Other Studies: Echo Results (last 7 days) Procedure Component Value Units Date/Time ECHO COMPLETE (DOPPLER / COLOR) W OR WO CONTRAST [[id number]] Collected: 11/30/24 2231 Order Status: Completed Updated: 11/30/24 1042 Narrative: TRANSTHORACIC ECHOCARDIOGRAPHY REPORT Demographics Patient Name: RIN JONES : 1960 Age: 64 year(s) Corporate ID Number: [id number] Gender Female Audio Director: Giovanna Rock Height: [address] Referring [...] .99 LV length: 8.51 cm ml Volume pcregfjj52.96 ml LVOT diameter: 1.79 cm Normal sized [...] Valve TR velocity: 2.51 m/s TR gradient: 25.84833 mmHg Estimated RAP: 3 mmHg RVSP: 28.12 [...] (DOPPLER / COLOR) W OR WO CONTRAST [[id number]] Collected: 11/30/24724 Order Status: Completed Updated: 11/30/24 104 Narrative: TRANSTHORACIC ECHOCARDIOGRAPHY REPORT Demographics Patient Name: RIN JONES : 1960 Age: 64 year(s) Corporate ID Number: [id number] Gender Female Audio Director: Giovanna Rock Height: 67 inches [facility] Referring Physician: HUEY HURTADO Weight: 225 pounds Interpreting JESSICA RAYMOND MD BMI: 35.24 kg/m^2 Physician: Date of Service: 11/30/2024 Blood Pressure: 118/59 mmHg Room Number: 579 Type of Study: TTE procedure: ECHO COMPLETE (DOPPLER / COLOR) W OR WO CONTRAST. Patient Status: Routine IP Study Location: [facility] Quality: Adequate visualization History/Tech Notes: Indication: shortness [...] 1.35 m/s E/A ratio: 0.97 m/s Volume ohrhfqlym866.99 LV length: 8.51 cm ml Volume drkbixfk01.96 ml LVOT diameter: 1.79 cm Normal sized [...] Valve TR velocity: 2.51 m/s TR gradient: 25.70746 mmHg Estimated RAP: 3 mmHg RVSP: 28.12 [...] imaging. Assessment and Plan: *Paroxysmal Atrial Fib [id number] of 2 also have some wide-complex tachycardia [...] POC-GLUCOSE 140 (H) 70 - 110 mg/dL Director Content Marketing [id number] Glucose, Nova Meter Status: Abnormal Collection Time: 12/05/24 7:21 PM Result Value Ref Range POC-GLUCOSE 145 (H) 70 - 110 mg/dL Director Content Marketing [id number] CBC - Hemogram (SJ-BKR) Status: Abnormal Collection [...] POC-GLUCOSE 143 (H) 70 - 110 mg/dL Director Content Marketing [id number] Glucose, Nova Meter Status: Abnormal Collection Time: 12/06/24 10:36 AM Result Value Ref Range POC-GLUCOSE 150 (H) 70 - 110 mg/dL Director Content Marketing [id number] ECG 12 lead Status: None (In process) Collection Time: 12/06/24 1:16 PM Result Value Ref Range VENTRICULAR RATE EKG/MIN 90 BPM ATRIAL RATE (MCT) 90 BPM [place] Interval 142 ms QRS-INTERVAL (MSEC) 92 ms QT Interval 378 ms QTC Interval 462 ms P [place] 28 degrees R AXIS (MCT) -4 degrees T Wave [place] 21 degrees [place] Diagnosis Normal sinus rhythm Septal infarct , [...] OT Monitor kidney function No emergent dialysis consumer marketing manager consulted Discharge Planning: Patient can be [...] Ext: +++ Pedal edema , no cyanosis SUPER[employer]: Alert, No focal deficit noted grossly Psy: Cooperative Labs: Results for orders placed or performed during the hospital encounter of 11/30/24 (from the past 24 hours) Glucose, Nova Meter Status: Abnormal Collection Time: 12/05/24 10:23 AM Result Value Ref Range POC-GLUCOSE 141 (H) 70 - 110 mg/dL Director Content Marketing [id number] Hemoglobin Status: Abnormal Collection Time: 12/05/24 3:36 PM Result Value Ref Range Hemoglobin 8.1 (L) 11.2 - 15.7 GM/DL Glucose, Nova Meter Status: Abnormal Collection Time: 12/05/24 5:01 PM Result Value Ref Range POC-GLUCOSE 140 (H) 70 - 110 mg/dL Director Content Marketing [id number] Glucose, Nova Meter Status: Abnormal Collection Time: 12/05/24 7:21 PM Result Value Ref Range POC-GLUCOSE 145 (H) 70 - 110 mg/dL Director Content Marketing [id number] CBC - Hemogram (-BK) Status: Abnormal Collection Time: 12/06/24 3:13 AM [...] POC-GLUCOSE 143 (H) 70 - 110 mg/dL Director Content Marketing [id number] XR chest AP portable Narrative: PORTABLE CHEST [...] for GFR - No emergent need of LAMP SHADE MAKER - Monitor H/H and transfuse for Hgb less than 7.0 - Serologic workup pending Discussed with patient * Blanka Malagon MD - 12/06/2024 8:20 AM EDT Images from the original note were not included. PULMONARY AND CRITICAL CARE Consult Note Date of Service: 12/06/2024 HPI: This is a 64 y.o. year old female with past medical history as below. She initially presented to [facility] with swollen abdomen, abdominal discomfort, and bilateral lower extremity pain. Her creatinine was elevated and as a result, she was transferred to [facility] for he patorenal syndrome. Upon arrival [...] BODY REMOVAL; Surgeon: Scott Daley MD; Location: [facility]; Service: Gastroenterology; Laterality: N/A; Allergies: No [...] POC-GLUCOSE 141 (H) 70 - 110 mg/dL Director Content Marketing [id number] Hemoglobin Status: Abnormal Collection Time: 12/05/24 3:36 PM Result Value Ref Range Hemoglobin 8.1 (L) 11.2 - 15.7 GM/DL Glucose, Nova Meter Status: Abnormal Collection Time: 12/05/24 5:01 PM Result Value Ref Range POC-GLUCOSE 140 (H) 70 - 110 mg/dL Director Content Marketing [id number] Glucose, Nova Meter Status: Abnormal Collection Time: 12/05/24 7:21 PM Result Value Ref Range POC-GLUCOSE 145 (H) 70 - 110 mg/dL Director Content Marketing [id number] CBC - Hemogram (-BKR) Status: Abnormal Collection [...] POC-GLUCOSE 143 (H) 70 - 110 mg/dL Director Content Marketing [id number] Radiology Radiology Results (last day) Procedure Component Value Units Date/Time XR chest AP portable [[id number]] Resulted: 12/06/24805 Order Status: Sent Updated: 12/06/24805 Microbiology: Microbiology Results (last 7 days) Procedure Component Value Units Date/Time Anaerobic Culture [[id number]] Collected: 11/30/24 1603 Order Status: Completed Specimen: Peritoneal Fluid from Body Fluid Updated: 12/05/24 0634 Result No Anaerobic growth Narrative: Specimen Description: peritoneal fluid Blood Culture [[id number]] Collected: 11/30/24 0340 Order Status: Completed Specimen: Blood from Arm, Left Updated: 12/05/24 0501 Result No growth in 5 days Blood Culture [[id number]] Collected: 11/30/24 0342 Order Status: Completed Specimen: Blood from Arm, Right Updated: 12/05/24 0501 Result No growth in 5 days Body Fluid Culture + Gram Stain [[id number]] Collected: 11/30/24 160 Order Status: Completed Specimen: Peritoneal Fluid from Body Fluid Updated: 12/03/24 0907 Result No growth Gram Stain Result No organisms seen No cells seen Narrative: Specimen Description: peritoneal fluid Body Fluid/CSF - Path Review () [[id number]] Collected: 11/30/24 160 Order Status: Completed Specimen: Peritoneal Fluid from Body Fluid Updated: 12/03/24 0654 SENT TO PATHOLOGY FOR REVIEW Yes Scan Result Mesothelial cells. MD German 12/02/2024 AFB Culture And Stain [[id number]] Collected: 11/30/24 160 Order Status: Completed Specimen: Peritoneal Fluid from Body Fluid Updated: 12/01/24 1410 AFB Smear No acid fast bacilli seen Narrative: Specimen Description: peritoneal fluid Glucose, body fluid [[id number]] Collected: 11/30/24 160 Order Status: Completed Specimen: Body Fluid from Peritoneal Fluid Updated: 12/01/24 0710 Glucose, Body Fluid 107 mg/dL BODY FLUID TYPE Peritoneal Narrative: This test has been modified from the audio visual collections coordinator's instructions and its performance characteristics were determined by the laboratory. The reference intervals and other method performance specifications are unavailable for this test. It is recommended to interpret body fluid concentrations in comparison with the corresponding serum or plasma concentrations and to integrate test results into the clinical context. Protein, body fluid [[id number]] Collected: 11/30/24 160 Order Status: Completed Specimen: Body Fluid from Peritoneal Fluid Updated: 12/01/24 0710 Protein, Fluid 1.9 g/dL BODY FLUID TYPE Peritoneal Narrative: This test has been modified from the audio visual collections coordinator's instructions and its performance characteristics were determined by the laboratory. The reference intervals and other method performance specifications are unavailable for this test. It is recommended to interpret body fluid concentrations in comparison with the corresponding serum or plasma concentrations and to integrate test results into the clinical context. Urine Culture [[id number]] Collected: 11/30/24 1135 Order Status: Completed Specimen: Urine, Clean Catch Updated: 12/01/24 0649 Result Recollect Specimen - 3 or more organisms suggests contamination Body fluid cell count with differential [[id number]] (Abnormal) Collected: 11/30/24 1603 Order Status: Completed [...] fluids are not defined. DIFFERENTIAL, BODY FLUID [[id number]] Collected: 11/30/241602 Order Status: Completed Specimen: Peritoneal Fluid from Body Fluid Updated: 11/30/24 2049 Neutrophils Fluid 5 % Lymphocytes Fluid 46 % Unidentified Mononuclear Cells BF 49 % Lactate dehydrogenase (LDH), body fluid [[id number]] Collected: 11/30/241602 Order Status: Completed Specimen: Peritoneal Fluid from Body Fluid Updated: 11/30/24 1819 LDH, Fluid 71 U/L BODY FLUID TYPE Peritoneal Narrative: This test has been modified from the audio visual collections coordinator's instructions and its performance characteristics were determined by the laboratory. The reference intervals and other method performance specifications are unavailable for this test. It is recommended to interpret body fluid concentrations in comparison with the corresponding serum or plasma concentrations and to integrate test results into the clinical context. Fungus Culture W/ROSA MARIA Or Nimisha Ink [[id number]] Collected: 11/30/241602 Order Status: Completed Specimen: Peritoneal Fluid from Body Fluid Updated: 11/30/24 1754 ROSA MARIA Prep No fungal elements seen Narrative: Specimen Description: peritoneal fluid Total Protein, Body Fluid(SENDOUT) [[id number]] Collected: 11/30/24 160 Order Status: Canceled Specimen: Peritoneal Fluid from Body Fluid Updated: 11/30/24 1634 Glucose Body Fluid(SENDOUT) [[id number]] Collected: 11/30/241602 Order Status: Canceled Specimen: Peritoneal Fluid from Body Fluid Updated: 11/30/24 1634 Urine Culture [[id number]] Collected: 11/30/24 1135 Order Status: Canceled Specimen: [...] to continue with albumin/diuretics no indication for LAMP SHADE MAKER Oxygenation improved 3 L nasal cannula, leg [...] personally evaluated the patient and performed a btxw-gm-kqlq diagnostic evaluation on this patient; I have reviewed history, performed physical examination, reviewed laboratory studies. , andreviewed images independent of radiologist. I have actively directed the medical care, formulated assessemnt and plan of care. Patient requires a high complexity of decision making for assessment. 46 minutes pulmonary care clinical time was spent. Voice manager fiber technology ([employer]) is used for dictation of this note and sound-alike words might be erroneously placed despite reviewing the note for accuracy.Errors in dictation may reflect use of voice recognition software and not all errors in manager fiber may have been detectedprior to signing * [...] Coronel Admission Date: 11/30/2024 Primary Care Provider: [facility] Find-a-Doc Chief Complaint/Reason for Consult: No chief complaint on file. History of Present Illness: Mary Coronel is a 64 y.o. female, admitted on: 11/30/2024 1:43 AM. presented to [facility] with swollen abdomen, abdominal discomfort and bilateral lower extremity pitting edema. Patient's BUN/creatinine elevated, and patient subsequently transferred to [facility] for hepatorenal syndrome evaluation. Admits to 4 [...] TID Alejandrejax Boo MD 300 mg at 12/05/24 0813 [...] Destiney Llanes APRN 550 mg at 12/05/24 08 sodium chloride 0.9 % infusion 20 mL/hr [...] Culture And Stain AFB Culture And Stain [facility] Non-Rn Private Duty Cytology [facility] Non-Rn Private Duty Cytology DIFFERENTIAL, BODY FLUID DIFFERENTIAL, BODY FLUID Body Fluid/CSF - Path Review () Body Fluid/CSF - Path Review () [facility] BONE MARROW SMEAR, ASPIRATION, AND STAIN [facility] BONE MARROW SMEAR, ASPIRATION, AND [...] BODY REMOVAL; Surgeon: Scott Daley MD; Location: [facility]; Service: Gastroenterology; Laterality: N/A; Allergies: No [...] Normal range of motion. Integumentary: Warm, Dry, [place]. Neurologic: No obvious focal deficit Psychiatric: Cooperative, Appropriate mood & affect. Labs, Imaging, and Other Studies: Echo Results (last 7 days) Procedure Component Value Units Date/Time ECHO COMPLETE (DOPPLER / COLOR) W OR WO CONTRAST [[id number]] Collected: 11/30/24724 Order Status: Completed Updated: 11/30/241045 Narrative: TRANSTHORACIC ECHOCARDIOGRAPHY REPORT Demographics Patient Name: RIN JONES : 1960 Age: 64 year(s) Corporate ID Number: [id number] Gender Female Audio Director: Giovanna Rock Height: 67 inches [facility] Referring Physician: HUEY HURTADO Weight: 225 [...] 1.35 m/s E/A ratio: 0.97 m/s Volume skisthljl615.99 LV length: 8.51 cm ml Volume yvfibezg48.96 ml LVOT diameter: 1.79 cm Normal sized [...] Valve TR velocity: 2.51 m/s TR gradient: 25.40182 mmHg Estimated RAP: 3 mmHg RVSP: 28.12 [...] (DOPPLER / COLOR) W OR WO CONTRAST [[id number]] Collected: 11/30/24 0725 Order Status: Completed Updated: 11/30/24 1046 Narrative: TRANSTHORACIC ECHOCARDIOGRAPHY REPORT Demographics Patient Name: RIN JONES : 1960 Age: 64 year(s) Corporate ID Number: [id number] Gender Female Audio Director: Giovanna Josephty Height: 67 inches [facility] Referring Physician: HUEY HURTADO Weight: 225 pounds Interpreting JESSICA RAYMOND MD BMI: 35.24 kg/m^2 Physician: Date of Service: 11/30/2024 Blood Pressure: 118/59 mmHg Room Number: 579 Type of Study: TTE procedure: ECHO COMPLETE (DOPPLER / COLOR) W OR WO CONTRAST. Patient Status: Routine IP Study Location: [facility] Quality: Adequate visualization History/Tech Notes: Indication: shortness [...] 1.35 m/s E/A ratio: 0.97 m/s Volume ohanfikoc958.99 LV length: 8.51 cm ml Volume ztnaljau69.96 ml LVOT diameter: 1.79 cm Normal sized [...] Valve TR velocity: 2.51 m/s TR gradient: 25.79571 mmHg Estimated RAP: 3 mmHg RVSP: 28.12 [...] imaging. Assessment and Plan: *Paroxysmal Atrial Fib [id number] of 2 also have some wide-complex tachycardia [...] BODY REMOVAL; Surgeon: Scott Daley MD; Location: [facility]; Service: Gastroenterology; Laterality: N/A; General Visit [...] Mobility Not assessed, patient ambulatory. Outcome Measures -[facility] Basic Mobility Inpatient Short Form How [...] Score Raw score=12 t-Scale score=35.33 Standard error=3.08 [facility] 0-100%=68.66% MDC=4.72 A raw score [...] Ext: +++ Pedal edema , no cyanosis [employer]: Alert, No focal deficit noted grossly Psy: Cooperative Labs: Results for orders placed or performed during the hospital encounter of 11/30/24 (from the past 24 hours) Glucose, Nova Meter Status: Abnormal Collection Time: 12/04/24 10:52 AM Result Value Ref Range POC-GLUCOSE 136 (H) 70 - 110 mg/dL Director Content Marketing [id number] Basic Metabolic Panel Status: Abnormal Collection Time: [...] POC-GLUCOSE 137 (H) 70 - 110 mg/dL Director Content Marketing [id number] ECG 12 lead Status: None (In process) Collection Time: 12/04/24 8:08 PM Result Value Ref Range SYSTOLIC BLOOD PRESSURE (MCT) 133 mmHg DIASTOLIC BLOOD PRESSURE (MCT) 61 mmHg VENTRICULAR RATE EKG/MIN 85 BPM ATRIAL RATE (MCT) 85 BPM [place] Interval 140 ms QRS-INTERVAL (MSEC) 94 ms QT Interval 426 ms QTC Interval 506 ms P [place] 44 degrees R AXIS (MCT) 27 degrees T Wave [place] -27 degrees [place] Diagnosis Normal sinus rhythm Nonspecific T wave abnormality Abnormal ECG When compared with ECG of 04-DEC-2024 03:25, QT has lengthened Glucose, Nova Meter Status: Abnormal Collection Time: 12/04/24 10:20 PM Result Value Ref Range POC-GLUCOSE 147 (H) 70 - 110 mg/dL Director Content Marketing [id number] Hemoglobin Status: Abnormal Collection Time: 12/04/24 11:54 [...] POC-GLUCOSE 123 (H) 70 - 110 mg/dL Director Content Marketing [id number] XR chest AP portable Narrative: PORTABLE CHEST [...] renal function - No emergent need of LAMP SHADE MAKER - Monitor H/H and transfuse for Hgb [...] history as below. She initially presented to [facility] with swollen abdomen, abdominal discomfort, and bilateral lower extremity pain. Her creatinine was elevated and as a result, she was transferred to [facility] for he patorenal syndrome. Upon arrival [...] BODY REMOVAL; Surgeon: Scott Daley MD; Location: [facility]; Service: Gastroenterology; Laterality: N/A; Allergies: No [...] POC-GLUCOSE 136 (H) 70 - 110 mg/dL Director Content Marketing [id number] Basic Metabolic Panel Status: Abnormal Collection Time: [...] POC-GLUCOSE 137 (H) 70 - 110 mg/dL Director Content Marketing [id number] ECG 12 lead Status: None (In process) Collection Time: 12/04/24 8:08 PM Result Value Ref Range SYSTOLIC BLOOD PRESSURE (MCT) 133 mmHg DIASTOLIC BLOOD PRESSURE (MCT) 61 mmHg VENTRICULAR RATE EKG/MIN 85 BPM ATRIAL RATE (MCT) 85 BPM [place] Interval 140 ms QRS-INTERVAL (MSEC) 94 ms QT Interval 426 ms QTC Interval 506 ms P [place] 44 degrees R AXIS (MCT) 27 degrees T Wave [place] -27 degrees [place] Diagnosis Normal sinus rhythm Nonspecific T wave abnormality Abnormal ECG When compared with ECG of 04-DEC-2024 03:25, QT has lengthened Glucose, Nova Meter Status: Abnormal Collection Time: 12/04/24 10:20 PM Result Value Ref Range POC-GLUCOSE 147 (H) 70 - 110 mg/dL Director Content Marketing [id number] Hemoglobin Status: Abnormal Collection Time: 12/04/24 11:54 [...] POC-GLUCOSE 123 (H) 70 - 110 mg/dL Director Content Marketing [id number] Radiology Radiology Results (last day) Procedure Component Value Units Date/Time XR chest AP portable [[id number]] Collected: 12/04/24 0923 Order Status: Completed Updated: [...] Procedure Component Value Units Date/Time Anaerobic Culture [[id number]] Collected: 11/30/24 1603 Order Status: Completed Specimen: Peritoneal Fluid from Body Fluid Updated: 12/05/24 0634 Result No Anaerobic growth Narrative: Specimen Description: peritoneal fluid Blood Culture [[id number]] Collected: 11/30/24 0340 Order Status: Completed Specimen: Blood from Arm, Left Updated: 12/05/24 0501 Result No growth in 5 days Blood Culture [[id number]] Collected: 11/30/24 0342 Order Status: Completed Specimen: Blood from Arm, Right Updated: 12/05/24 0501 Result No growth in 5 days Body Fluid Culture + Gram Stain [[id number]] Collected: 11/30/24 1603 Order Status: Completed Specimen: Peritoneal Fluid from Body Fluid Updated: 12/03/24 0907 Result No growth Gram Stain Result No organisms seen No cells seen Narrative: Specimen Description: peritoneal fluid Body Fluid/CSF - Path Review (SJ) [[id number]] Collected: 11/30/24 160 Order Status: Completed Specimen: Peritoneal Fluid from Body Fluid Updated: 12/03/24 0654 SENT TO PATHOLOGY FOR REVIEW Yes Scan Result Mesothelial cells. MD German 12/02/2024 AFB Culture And Stain [[id number]] Collected: 11/30/24 1603 Order Status: Completed Specimen: Peritoneal Fluid from Body Fluid Updated: 12/01/24 1410 AFB Smear No acid fast bacilli seen Narrative: Specimen Description: peritoneal fluid Glucose, body fluid [[id number]] Collected: 11/30/24 1603 Order Status: Completed Specimen: Body Fluid from Peritoneal Fluid Updated: 12/01/24 0710 Glucose, Body Fluid 107 mg/dL BODY FLUID TYPE Peritoneal Narrative: This test has been modified from the audio visual collections coordinator's instructions and its performance characteristics were determined by the laboratory. The reference intervals and other method performance specifications are unavailable for this test. It is recommended to interpret body fluid concentrations in comparison with the corresponding serum or plasma concentrations and to integrate test results into the clinical context. Protein, body fluid [[id number]] Collected: 11/30/24 1603 Order Status: Completed Specimen: Body Fluid from Peritoneal Fluid Updated: 12/01/24 0710 Protein, Fluid 1.9 g/dL BODY FLUID TYPE Peritoneal Narrative: This test has been modified from the audio visual collections coordinator's instructions and its performance characteristics were determined by the laboratory. The reference intervals and other method performance specifications are unavailable for this test. It is recommended to interpret body fluid concentrations in comparison with the corresponding serum or plasma concentrations and to integrate test results into the clinical context. Urine Culture [[id number]] Collected: 11/30/24 1135 Order Status: Completed Specimen: Urine, Clean Catch Updated: 12/01/24 0649 Result Recollect Specimen - 3 or more organisms suggests contamination Body fluid cell count with differential [[id number]] (Abnormal) Collected: 11/30/241602 Order Status: Completed Specimen: [...] fluids are not defined. DIFFERENTIAL, BODY FLUID [[id number]] Collected: 11/30/241602 Order Status: Completed Specimen: Peritoneal Fluid from Body Fluid Updated: 11/30/242048 Neutrophils Fluid 5 % Lymphocytes Fluid 46 % Unidentified Mononuclear Cells BF 49 % Lactate dehydrogenase (LDH), body fluid [[id number]] Collected: 11/30/241602 Order Status: Completed Specimen: Peritoneal Fluid from Body Fluid Updated: 11/30/241818 LDH, Fluid 71 U/L BODY FLUID TYPE Peritoneal Narrative: This test has been modified from the audio visual collections coordinator's instructions and its performance characteristics were determined by the laboratory. The reference intervals and other method performance specifications are unavailable for this test. It is recommended to interpret body fluid concentrations in comparison with the corresponding serum or plasma concentrations and to integrate test results into the clinical context. Fungus Culture W/ROSA MARIA Or Nimisha Ink [[id number]] Collected: 11/30/241602 Order Status: Completed Specimen: Peritoneal Fluid from Body Fluid Updated: 11/30/24 1754 ROSA MARIA Prep No fungal elements seen Narrative: Specimen Description: peritoneal fluid Total Protein, Body Fluid(SENDOUT) [[id number]] Collected: 11/30/241602 Order Status: Canceled Specimen: Peritoneal Fluid from Body Fluid Updated: 11/30/24 1634 Glucose Body Fluid(SENDOUT) [[id number]] Collected: 11/30/241602 Order Status: Canceled Specimen: Peritoneal Fluid from Body Fluid Updated: 11/30/24 1634 Urine Culture [[id number]] Collected: 11/30/24 1135 Order Status: Canceled Specimen: [...] and lisinopril. Per nephrology there is no LAMP SHADE MAKER indication at this time. Ultrasound renal on [...] multidisciplinary team including nurse practitioner, nurse, RT, warehouse manager, pharmacist, and case management during multidisciplinary round. I Dr.Hazim Jeramy MD, have personally evaluated the patient and performed a vkex-hx-ufdl diagnostic evaluation on this patient; I have Obtained history, performed physical examination, reviewed laboratory studies. I have reviewed images independent of radiologist. I have actively directed the medical care, formulated diagnosis, and the plan of care. Patient requires a high complexity of decision making for assessment. Voice manager fiber technology ([employer]) is used for dictation of this note and sound-alike words might be erroneously placed despite reviewing the note for accuracy. Errors in dictation may reflect use of voice recognition software and not all errors in manager fiber may have been detected prior to signing. [...] POC-GLUCOSE 136 (H) 70 - 110 mg/dL Director Content Marketing [id number] Basic Metabolic Panel Status: Abnormal Collection Time: [...] POC-GLUCOSE 137 (H) 70 - 110 mg/dL Director Content Marketing [id number] ECG 12 lead Status: None (In process) Collection Time: 12/04/24 8:08 PM Result Value Ref Range SYSTOLIC BLOOD PRESSURE (MCT) 133 mmHg DIASTOLIC BLOOD PRESSURE (MCT) 61 mmHg VENTRICULAR RATE EKG/MIN 85 BPM ATRIAL RATE (MCT) 85 BPM [place] Interval 140 ms QRS-INTERVAL (MSEC) 94 ms QT Interval 426 ms QTC Interval 506 ms P [place] 44 degrees R AXIS (MCT) 27 degrees T Wave [place] -27 degrees [place] Diagnosis Normal sinus rhythm Nonspecific T wave abnormality Abnormal ECG When compared with ECG of 04-DEC-2024 03:25, QT has lengthened Glucose, Nova Meter Status: Abnormal Collection Time: 12/04/24 10:20 PM Result Value Ref Range POC-GLUCOSE 147 (H) 70 - 110 mg/dL Director Content Marketing [id number] Hemoglobin Status: Abnormal Collection Time: 12/04/24 11:54 [...] admitted on: 11/30/2024 1:43 AM. presented to [facility] with swollen abdomen, abdominal discomfort and bilateral lower extremity pitting edema. Patient's BUN/creatinine elevated, and patient subsequently transferred to [facility] for hepatorenal syndrome evaluation. Admits to 4 [...] IV 25 g 25 g intravenous Q6H [facility] Timothy Bai MD albuterol 2.5 [...] Culture And Stain AFB Culture And Stain [facility] Non-Rn Private Duty Cytology [facility] Non-Rn Private Duty Cytology DIFFERENTIAL, BODY FLUID DIFFERENTIAL, BODY FLUID Body Fluid/CSF - Path Review () Body Fluid/CSF - Path Review () [facility] BONE MARROW SMEAR, ASPIRATION, AND STAIN [facility] BONE MARROW SMEAR, ASPIRATION, AND [...] BODY REMOVAL; Surgeon: Scott Daley MD; Location: [facility]; Service: Gastroenterology; Laterality: N/A; Allergies: No [...] Normal range of motion. Integumentary: Warm, Dry, [place]. Neurologic: No obvious focal deficit Psychiatric: Cooperative, Appropriate mood & affect. Labs, Imaging, and Other Studies: Echo Results (last 7 days) Procedure Component Value Units Date/Time ECHO COMPLETE (DOPPLER / COLOR) W OR WO CONTRAST [[id number]] Collected: 11/30/24724 Order Status: Completed Updated: 11/30/24 1046 Narrative: TRANSTHORACIC ECHOCARDIOGRAPHY REPORT Demographics Patient Name: RIN JONES : 1960 Age: 64 year(s) Corporate ID Number: [id number] Gender Female Audio Director: Giovanna Rock Height: 67 inches [facility] Referring Physician: HUEY HURTADO Weight: 225 pounds Interpreting JESSICA RAYMOND MD BMI: 35.24 kg/m^2 Physician: Date of Service: 11/30/2024 Blood Pressure: 118/59 mmHg Room Number: 579 Type of Study: TTE procedure: ECHO COMPLETE (DOPPLER / COLOR) W OR WO CONTRAST. Patient Status: Routine [facility] History/Tech Notes: Indication: [...] 1.35 m/s E/A ratio: 0.97 m/s Volume bozhpwdlm023.99 LV length: 8.51 cm ml Volume jrqqyrpg88.96 ml LVOT diameter: 1.79 cm Normal sized [...] Valve TR velocity: 2.51 m/s TR gradient: 25.31358 mmHg Estimated RAP: 3 mmHg RVSP: 28.12 [...] (DOPPLER / COLOR) W OR WO CONTRAST [[id number]] Collected: 11/30/24724 Order Status: Completed Updated: 11/30/24 104 Narrative: TRANSTHORACIC ECHOCARDIOGRAPHY REPORT Demographics Patient Name: RIN JONES : 1960 Age: 64 year(s) Corporate ID Number: [id number] Gender Female Audio Director: Giovanna Rock Height: 67 inches [facility] Referring Physician: HUEY HURTADO Weight: 225 pounds Interpreting JESSICA RAYMOND MD BMI: 35.24 kg/m^2 Physician: Date of Service: 11/30/2024 Blood Pressure: 118/59 mmHg Room Number: 579 Type of Study: TTE procedure: ECHO COMPLETE (DOPPLER / COLOR) W OR WO CONTRAST. Patient Status: Routine IP Study Location: [facility] Quality: Adequate visualization History/Tech Notes: Indication: shortness [...] 1.35 m/s E/A ratio: 0.97 m/s Volume qzsokklbv805.99 LV length: 8.51 cm ml Volume yowokuwq59.96 ml LVOT diameter: 1.79 cm Normal sized [...] Valve TR velocity: 2.51 m/s TR gradient: 25.81173 mmHg Estimated RAP: 3 mmHg RVSP: 28.12 [...] imaging. Assessment and Plan: *Paroxysmal Atrial Fib [id number] of 2 also have some wide-complex tachycardia [...] 362 ms QTC Interval 459 ms P [place] 40 degrees R AXIS (MCT) 8 degrees T Wave [place] -8 degrees [place] Diagnosis Normal sinus rhythm Normal ECG No previous ECGs available Confirmed by DEYSI FOSS M.D. ([id number]) on 12/03/2024 5:59:01 PM Glucose, Nova Meter Status: Abnormal Collection Time: 12/03/24 10:45 AM Result Value Ref Range POC-GLUCOSE 156 (H) 70 - 110 mg/dL Director Content Marketing [id number] ECG 12 lead Status: None Collection Time: 12/03/24 2:16 PM Result Value Ref Range VENTRICULAR RATE EKG/MIN 136 BPM ATRIAL RATE (MCT) 73 BPM QRS-INTERVAL (MSEC) 88 ms QT Interval 304 ms QTC Interval 457 ms R AXIS (MCT) -11 degrees T Wave [place] -58 degrees [place] Diagnosis Atrial fibrillation with rapid ventricular response Possible Anterolateral infarct , age undetermined Possible abberancy Confirmed by DEYSI FOSS M.D. ([id number]) on 12/03/2024 5:58:45 PM Glucose, Nova Meter Status: Abnormal Collection Time: 12/03/24 5:19 PM Result Value Ref Range POC-GLUCOSE 146 (H) 70 - 110 mg/dL Director Content Marketing [id number] Glucose, Nova Meter Status: Abnormal Collection Time: 12/03/24 9:41 PM Result Value Ref Range POC-GLUCOSE 146 (H) 70 - 110 mg/dL Director Content Marketing [id number] Hemoglobin Status: Abnormal Collection Time: 12/04/24 1:04 [...] 380 ms QTC Interval 438 ms P [place] 47 degrees R AXIS (MCT) 44 degrees T Wave [place] -30 degrees [place] Diagnosis Normal sinus rhythm Low voltage QRS [...] POC-GLUCOSE 155 (H) 70 - 110 mg/dL Director Content Marketing [id number] Blood gas, arterial Status: Abnormal Collection Time: [...] ARTERIAL 8.6 (L) 12.0 - 18.0 g/dL [facility] COLLECTION SITE Right Brachial Arterial Puncture Yes Blood Gas O2 Delivery Device Cannula Oxygen Flow Rate 3 Blood Gas PT Temperature C 37.0 Sen's Test Not Applicable Critical Values Notification Critical Blood gas called to DAYANARA MATIAS . Results acknowledged/read back to [id number] and confirmed on 12/04/2024 07:09 ABG Number [...] history as below. She initially presented to [facility] with swollen abdomen, abdominal discomfort, and bilateral lower extremity pain. Her creatinine was elevated and as a result, she was transferred to [facility] for he patorenal syndrome. Upon arrival [...] BODY REMOVAL; Surgeon: Scott Daley MD; Location: [facility]; Service: Gastroenterology; Laterality: N/A; Allergies: No [...] 362 ms QTC Interval 459 ms P [place] 40 degrees R AXIS (MCT) 8 degrees T Wave [place] -8 degrees [place] Diagnosis Normal sinus rhythm Normal ECG No previous ECGs available Confirmed by DEYSI FOSS M.D. ([id number]) on 12/03/2024 5:59:01 PM Glucose, Nova Meter Status: Abnormal Collection Time: 12/03/24 10:45 AM Result Value Ref Range POC-GLUCOSE 156 (H) 70 - 110 mg/dL Director Content Marketing [id number] ECG 12 lead Status: None Collection Time: 12/03/24 2:16 PM Result Value Ref Range VENTRICULAR RATE EKG/MIN 136 BPM ATRIAL RATE (MCT) 73 BPM QRS-INTERVAL (MSEC) 88 ms QT Interval 304 ms QTC Interval 457 ms R AXIS (MCT) -11 degrees T Wave [place] -58 degrees [place] Diagnosis Atrial fibrillation with rapid ventricular response Possible Anterolateral infarct , age undetermined Possible abberancy Confirmed by DEYSI FOSS M.D. ([id number]) on 12/03/2024 5:58:45 PM Glucose, Nova Meter Status: Abnormal Collection Time: 12/03/24 5:19 PM Result Value Ref Range POC-GLUCOSE 146 (H) 70 - 110 mg/dL Director Content Marketing [id number] Glucose, Nova Meter Status: Abnormal Collection Time: 12/03/24 9:41 PM Result Value Ref Range POC-GLUCOSE 146 (H) 70 - 110 mg/dL Director Content Marketing [id number] Hemoglobin Status: Abnormal Collection Time: 12/04/24 1:04 [...] 380 ms QTC Interval 438 ms P [place] 47 degrees R AXIS (MCT) 44 degrees T Wave [place] -30 degrees [place] Diagnosis Normal sinus rhythm Low voltage QRS [...] POC-GLUCOSE 155 (H) 70 - 110 mg/dL Director Content Marketing [id number] Blood gas, arterial Status: Abnormal Collection Time: [...] ARTERIAL 8.6 (L) 12.0 - 18.0 g/dL [facility] COLLECTION SITE Right Brachial Arterial Puncture Yes Blood Gas O2 Delivery Device Cannula Oxygen Flow Rate 3 Blood Gas PT Temperature C 37.0 Sen's Test Not Applicable Critical Values Notification Critical Blood gas called to DAYANARA MATIAS . Results acknowledged/read back to [id number] and confirmed on 12/04/2024 07:09 ABG Number of Draw Attempts 1 FIO2 Blood Gas Temperature Corrected Results No No Radiology Radiology Results (last day) Procedure Component Value Units Date/Time XR chest AP portable [[id number]] Resulted: 12/04/24749 Order Status: Sent Updated: 12/04/24750 XR chest AP portable [[id number]] Collected: 12/03/241805 Order Status: Completed Updated: 12/03/241807 [...] Procedure Component Value Units Date/Time Anaerobic Culture [[id number]] Collected: 11/30/24 1603 Order Status: Completed Specimen: Peritoneal Fluid from Body Fluid Updated: 12/04/24 0754 Result No Anaerobic growth Narrative: Specimen Description: peritoneal fluid Blood Culture [[id number]] Collected: 11/30/24 0340 Order Status: Completed Specimen: Blood from Arm, Left Updated: 12/04/24 0501 Result No growth in 4 days Blood Culture [[id number]] Collected: 11/30/24 0342 Order Status: Completed Specimen: Blood from Arm, Right Updated: 12/04/24 0501 Result No growth in 4 days Body Fluid Culture + Gram Stain [[id number]] Collected: 11/30/24 1603 Order Status: Completed Specimen: Peritoneal Fluid from Body Fluid Updated: 12/03/24 0907 Result No growth Gram Stain Result No organisms seen No cells seen Narrative: Specimen Description: peritoneal fluid Body Fluid/CSF - Path Review () [[id number]] Collected: 11/30/24 160 Order Status: Completed Specimen: Peritoneal Fluid from Body Fluid Updated: 12/03/24 0654 SENT TO PATHOLOGY FOR REVIEW Yes Scan Result Mesothelial cells. MD German 12/02/2024 AFB Culture And Stain [[id number]] Collected: 11/30/24 160 Order Status: Completed Specimen: Peritoneal Fluid from Body Fluid Updated: 12/01/24 1410 AFB Smear No acid fast bacilli seen Narrative: Specimen Description: peritoneal fluid Glucose, body fluid [[id number]] Collected: 11/30/24 160 Order Status: Completed Specimen: Body Fluid from Peritoneal Fluid Updated: 12/01/24 0710 Glucose, Body Fluid 107 mg/dL BODY FLUID TYPE Peritoneal Narrative: This test has been modified from the audio visual collections coordinator's instructions and its performance characteristics were determined by the laboratory. The reference intervals and other method performance specifications are unavailable for this test. It is recommended to interpret body fluid concentrations in comparison with the corresponding serum or plasma concentrations and to integrate test results into the clinical context. Protein, body fluid [[id number]] Collected: 11/30/24 160 Order Status: Completed Specimen: Body Fluid from Peritoneal Fluid Updated: 12/01/24 0710 Protein, Fluid 1.9 g/dL BODY FLUID TYPE Peritoneal Narrative: This test has been modified from the audio visual collections coordinator's instructions and its performance characteristics were determined by the laboratory. The reference intervals and other method performance specifications are unavailable for this test. It is recommended to interpret body fluid concentrations in comparison with the corresponding serum or plasma concentrations and to integrate test results into the clinical context. Urine Culture [[id number]] Collected: 11/30/24 1135 Order Status: Completed Specimen: Urine, Clean Catch Updated: 12/01/24 0649 Result Recollect Specimen - 3 or more organisms suggests contamination Body fluid cell count with differential [[id number]] (Abnormal) Collected: 11/30/24 160 Order Status: Completed [...] fluids are not defined. DIFFERENTIAL, BODY FLUID [[id number]] Collected: 11/30/241602 Order Status: Completed Specimen: Peritoneal Fluid from Body Fluid Updated: 11/30/24 2049 Neutrophils Fluid 5 % Lymphocytes Fluid 46 % Unidentified Mononuclear Cells BF 49 % Lactate dehydrogenase (LDH), body fluid [[id number]] Collected: 11/30/241602 Order Status: Completed Specimen: Peritoneal Fluid from Body Fluid Updated: 11/30/24 1819 LDH, Fluid 71 U/L BODY FLUID TYPE Peritoneal Narrative: This test has been modified from the audio visual collections coordinator's instructions and its performance characteristics were determined by the laboratory. The reference intervals and other method performance specifications are unavailable for this test. It is recommended to interpret body fluid concentrations in comparison with the corresponding serum or plasma concentrations and to integrate test results into the clinical context. Fungus Culture W/ROSA MARIA Or Nimisha Ink [[id number]] Collected: 11/30/241602 Order Status: Completed Specimen: Peritoneal Fluid from Body Fluid Updated: 11/30/24 1754 ROSA MARIA Prep No fungal elements seen Narrative: Specimen Description: peritoneal fluid Total Protein, Body Fluid(SENDOUT) [[id number]] Collected: 11/30/24 160 Order Status: Canceled Specimen: Peritoneal Fluid from Body Fluid Updated: 11/30/24 1634 Glucose Body Fluid(SENDOUT) [[id number]] Collected: 11/30/24 160 Order Status: Canceled Specimen: Peritoneal Fluid from Body Fluid Updated: 11/30/24 1634 Urine Culture [[id number]] Collected: 11/30/24 1135 Order Status: Canceled Specimen: [...] and lisinopril. Per nephrology there is no LAMP SHADE MAKER indication at this time. Ultrasound renal on [...] multidisciplinary team including nurse practitioner, nurse, RT, warehouse manager, pharmacist, and case management during multidisciplinary round. I Dr.Hazim Jeramy MD, have personally evaluated the patient and performed a uxii-in-xilq diagnostic evaluation on this patient; I have Obtained history, performed physical examination, reviewed laboratory studies. I have reviewed images independent of radiologist. I have actively directed the medical care, formulated diagnosis, and the plan of care. Patient requires a high complexity of decision making for assessment. Voice manager fiber technology ([employer]) is used for dictation of this note and sound-alike words might be erroneously placed despite reviewing the note for accuracy. Errors in dictation may reflect use of voice recognition software and not all errors in manager fiber may have been detected prior to signing. 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 ([id number]) on 12/03/2024 5:59:01 PM Glucose, Nova Meter Status: Abnormal Collection Time: 12/03/24 10:45 AM Result Value Ref Range POC-GLUCOSE 156 (H) 70 - 110 mg/dL Director Content Marketing [id number] ECG 12 lead Status: None Collection Time: 12/03/24 2:16 PM Result Value Ref Range VENTRICULAR RATE EKG/MIN 136 BPM ATRIAL RATE (MCT) 73 BPM QRS-INTERVAL (MSEC) 88 ms QT Interval 304 ms QTC Interval 457 ms R AXIS (MCT) -11 degrees T Wave [place] -58 degrees [place] Diagnosis Atrial fibrillation with rapid ventricular response Possible Anterolateral infarct , age undetermined Possible abberancy Confirmed by DEYSI FOSS M.D. ([id number]) on 12/03/2024 5:58:45 PM Glucose, Nova Meter Status: Abnormal Collection Time: 12/03/24 5:19 PM Result Value Ref Range POC-GLUCOSE 146 (H) 70 - 110 mg/dL Director Content Marketing [id number] Glucose, Nova Meter Status: Abnormal Collection Time: 12/03/24 9:41 PM Result Value Ref Range POC-GLUCOSE 146 (H) 70 - 110 mg/dL Director Content Marketing [id number] Hemoglobin Status: Abnormal Collection Time: 12/04/24 1:04 [...] 380 ms QTC Interval 438 ms P [place] 47 degrees R AXIS (MCT) 44 degrees T Wave [place] -30 degrees [place] Diagnosis Normal sinus rhythm Low voltage QRS [...] POC-GLUCOSE 155 (H) 70 - 110 mg/dL Director Content Marketing [id number] Blood gas, arterial Status: Abnormal Collection Time: [...] ARTERIAL 8.6 (L) 12.0 - 18.0 g/dL [facility] COLLECTION SITE Right Brachial Arterial Puncture Yes Blood Gas O2 Delivery Device Cannula Oxygen Flow Rate 3 Blood Gas PT Temperature C 37.0 Sen's Test Not Applicable Critical Values Notification Critical Blood gas called to DAYANARA MATIAS . Results acknowledged/read back to [id number] and confirmed on 12/04/2024 07:09 ABG Number [...] renal function - No emergent need of LAMP SHADE MAKER - Monitor H/H and transfuse for Hgb [...] Ext: +++ Pedal edema , no cyanosis SUPERVISOR DRIED YEAST: Alert, No focal deficit noted grossly Psy: Cooperative Labs: Results for orders placed or performed during the hospital encounter of 11/30/24 (from the past 24 hours) Glucose, Nova Meter Status: Abnormal Collection Time: 12/02/24 5:18 PM Result Value Ref Range POC-GLUCOSE 128 (H) 70 - 110 mg/dL Director Content Marketing [id number] Hemoglobin Status: Abnormal Collection Time: 12/02/24 6:03 PM Result Value Ref Range Hemoglobin 9.1 (L) 11.2 - 15.7 GM/DL Glucose, Nova Meter Status: Abnormal Collection Time: 12/02/24 8:06 PM Result Value Ref Range POC-GLUCOSE 144 (H) 70 - 110 mg/dL Director [employer] [id number] Hemoglobin Status: Abnormal Collection Time: 12/02/24 11:06 PM Result Value Ref Range Hemoglobin 8.9 (L) 11.2 - 15.7 GM/DL Glucose, Nova Meter Status: Abnormal Collection Time: 12/03/24 1:10 AM Result Value Ref Range POC-GLUCOSE 164 (H) 70 - 110 mg/dL Director Content Marketing [id number] Glucose, Nova Meter Status: Abnormal Collection Time: 12/03/24 1:12 AM Result Value Ref Range POC-GLUCOSE 168 (H) 70 - 110 mg/dL Director Content Marketing [id number] Glucose, Nova Meter Status: Abnormal Collection Time: 12/03/24 5:13 AM Result Value Ref Range POC-GLUCOSE 142 (H) 70 - 110 mg/dL Director [employer] [id number] Magnesium Status: Normal Collection Time: 12/03/24 7:39 [...] 362 ms QTC Interval 459 ms P [place] 40 degrees R AXIS (MCT) 8 degrees T Wave [place] -8 degrees [place] Diagnosis Normal sinus rhythm Normal ECG No previous ECGs available Glucose, Nova Meter Status: Abnormal Collection Time: 12/03/24 10:45 AM Result Value Ref Range POC-GLUCOSE 156 (H) 70 - 110 mg/dL Director Content Marketing [id number] ECG 12 lead Status: None (In process) Collection Time: 12/03/24 2:16 PM Result Value Ref Range VENTRICULAR RATE EKG/MIN 136 BPM ATRIAL RATE (MCT) 73 BPM QRS-INTERVAL (MSEC) 88 ms QT Interval 304 ms QTC Interval 457 ms R AXIS (MCT) -11 degrees T Wave [place] -58 degrees [place] Diagnosis Atrial fibrillation with rapid ventricular response Possible Anterolateral infarct , age undetermined Abnormal ECG When compared with ECG of 03-DEC-2024 10:39, Atrial fibrillation has replaced Sinus rhythm CT bone marrow biopsy Narrative: CT GUIDED BONE MARROW ASPIRATION AND CORE BIOPSY. HISTORY: Pancytopenia. ATTENDING RADIOLOGIST: Dr. Haseeb Gil. PHYSICIAN SIDE STITCHER: Sandra Ramsey PA-C PROCEDURE: After informed consent [...] renal function - No emergent need of LAMP SHADE MAKER - Monitor H/H and transfuse for Hgb less than 7.0 * Brandan Kerr, PT - 12/03/2024 2:16 PM EDT Images from the original note were not included. Inpatient Physical Therapy Attempt to Treat Patient Name: Mary Coronel Birthday: 1960 Date of Attempt: 12/03/2024 Time: [id number]. Gathered subjective history from patient and assessed [...] LOS: 3 days Location:[phone] PCP on file: [facility] Find-a-Doc Principal Problem: Anasarca ASSESSMENT [...] Dr. Law Cote on December 07 in [place], [place]. -No evidence of SBP -Continue Lactulose/Xifaxan [...] POC-GLUCOSE 112 (H) 70 - 110 mg/dL Director Content Marketing [id number] Glucose, Nova Meter Status: Abnormal Collection Time: 12/02/24 5:18 PM Result Value Ref Range POC-GLUCOSE 128 (H) 70 - 110 mg/dL Director [employer] [id number] Hemoglobin Status: Abnormal Collection Time: 12/02/24 6:03 PM Result Value Ref Range Hemoglobin 9.1 (L) 11.2 - 15.7 GM/DL Glucose, Nova Meter Status: Abnormal Collection Time: 12/02/24 8:06 PM Result Value Ref Range POC-GLUCOSE 144 (H) 70 - 110 mg/dL Director Content Marketing [id number] Hemoglobin Status: Abnormal Collection Time: 12/02/24 11:06 PM Result Value Ref Range Hemoglobin 8.9 (L) 11.2 - 15.7 GM/DL Glucose, Nova Meter Status: Abnormal Collection Time: 12/03/24 1:10 AM Result Value Ref Range POC-GLUCOSE 164 (H) 70 - 110 mg/dL Director Content Marketing [id number] Glucose, Nova Meter Status: Abnormal Collection Time: 12/03/24 1:12 AM Result Value Ref Range POC-GLUCOSE 168 (H) 70 - 110 mg/dL Director Content Marketing [id number] Glucose, Nova Meter Status: Abnormal Collection Time: 12/03/24 5:13 AM Result Value Ref Range POC-GLUCOSE 142 (H) 70 - 110 mg/dL Director [employer] Marketing [id number] Magnesium Status: Normal Collection Time: 12/03/24 7:39 [...] Value Units Date/Time CT bone marrow biopsy [[id number]] Collected: 12/02/24 1524 Order Status: Completed Updated: 12/02/24 1556 Narrative: CT GUIDED BONE MARROW ASPIRATION AND CORE BIOPSY. HISTORY: Pancytopenia. ATTENDING RADIOLOGIST: Dr. Haseeb Gil. PHYSICIAN SIDE STITCHER: Sandra Ramsey PA-C PROCEDURE: After informed consent [...] Transcribed by Sandra Ramsey PA-C. Ultrasound liver [[id number]] Collected: 11/30/24 1643 Order Status: Completed Updated: [...] and dictated by SABINE Yang. US paracentesis [[id number]] Collected: 11/30/24 1637 Order Status: Completed Updated: 11/30/241654 Narrative: ULTRASOUND-GUIDED PARACENTESIS HISTORY: Ascites ATTENDING PHYSICIAN: Dr. Haseeb Gil PHYSICIAN SIDE STITCHER: Gabriel Velasco PA-C FINDINGS: After informed consent [...] by Gabriel Velasco PA-C. Ultrasound renal limited [[id number]] Collected: 11/30/24 1646 Order Status: Completed Updated: [...] Ronnell Tom MD XR chest AP portable [[id number]] Collected: 11/30/24 1215 Order Status: Completed Updated: [...] AM Result Value Ref Range Issue Date/Time [id number] Product Identification Red Blood Cells Product Code [id number] Status Information Transfused Unit Number [id number] Blood Type 5100 Cross Match Results Compatible Glucose, Nova Meter Status: Abnormal Collection Time: 12/02/24 12:51 PM Result Value Ref Range POC-GLUCOSE 112 (H) 70 - 110 mg/dL Director Content Marketing [id number] Glucose, Nova Meter Status: Abnormal Collection Time: 12/02/24 5:18 PM Result Value Ref Range POC-GLUCOSE 128 (H) 70 - 110 mg/dL Director Content Marketing [id number] Hemoglobin Status: Abnormal Collection Time: 12/02/24 6:03 PM Result Value Ref Range Hemoglobin 9.1 (L) 11.2 - 15.7 GM/DL Glucose, Nova Meter Status: Abnormal Collection Time: 12/02/24 8:06 PM Result Value Ref Range POC-GLUCOSE 144 (H) 70 - 110 mg/dL Director Content Marketing [id number] Hemoglobin Status: Abnormal Collection Time: 12/02/24 11:06 PM Result Value Ref Range Hemoglobin 8.9 (L) 11.2 - 15.7 GM/DL Glucose, Nova Meter Status: Abnormal Collection Time: 12/03/24 1:10 AM Result Value Ref Range POC-GLUCOSE 164 (H) 70 - 110 mg/dL Director Content Marketing [id number] Glucose, Nova Meter Status: Abnormal Collection Time: 12/03/24 1:12 AM Result Value Ref Range POC-GLUCOSE 168 (H) 70 - 110 mg/dL Director Content Marketing [id number] Glucose, Nova Meter Status: Abnormal Collection Time: 12/03/24 5:13 AM Result Value Ref Range POC-GLUCOSE 142 (H) 70 - 110 mg/dL Director Content Marketing [id number] Magnesium Status: Normal Collection Time: 12/03/24 7:39 [...] Pancytopenia. ATTENDING RADIOLOGIST: Dr. Haseeb Gil. PHYSICIAN SIDE STITCHER: Sandra Ramsey PA-C PROCEDURE: After informed consent [...] BODY REMOVAL; Surgeon: Scott Daley MD; Location: [facility]; Service: Gastroenterology; Laterality: N/A; General Visit [...] in Afib w/RVR and c/o SOB. EP CODING VALIDATOR notified.New orders taken. IV Amio 150mg bolus [...] BODY REMOVAL; Surgeon: Scott Daley MD; Location: [facility]; Service: Gastroenterology; Laterality: N/A; Allergies: Patient [...] 55.1 (H) 12/02/2024 033 CREATININE 3.55 (H) 12/02/2024337 Component Value Date/Time CALCIUM 7.9 (L) 12/02/2024 033 ALKPHOS 49 12/02/20248 AST 32 12/02/2024337 ALT 8 12/02/2024 033 BILITOT 0.9 12/02/2024 0338 Radiology Results (last 7 days) Procedure Component Value Units Date/Time CT bone marrow biopsy [[id number]] Collected: 12/02/24 1524 Order Status: Completed Updated: 12/02/241525 Narrative: CT GUIDED BONE MARROW ASPIRATION AND CORE BIOPSY. HISTORY: Pancytopenia. ATTENDING RADIOLOGIST: Dr. Haseeb Gil. PHYSICIAN SIDE STITCHER: Sandra Ramsey PA-C PROCEDURE: After informed consent [...] by Sandra Ramsey PA-C. Ultrasound renal limited [[id number]] Collected: 11/30/241645 Order Status: Completed Updated: 11/30/241648 [...] dictated by Ronnell Tom MD Ultrasound liver [[id number]] Collected: 11/30/24 164 Order Status: Completed Updated: [...] and dictated by SABINE Yang. US paracentesis [[id number]] Collected: 11/30/24 1637 Order Status: Completed Updated: 11/30/241654 Narrative: ULTRASOUND-GUIDED PARACENTESIS HISTORY: Ascites ATTENDING PHYSICIAN: Dr. Haseeb Gil PHYSICIAN SIDE STITCHER: Gabriel Velasco PA-C FINDINGS: After informed consent [...] Gabriel Velasco PA-C. XR chest AP portable [[id number]] Collected: 11/30/24 1215 Order Status: Completed Updated: [...] by Marielos Sotelo PA-C. US renal complete [[id number]] Order Status: Canceled Assessment Pancytopenia. She had [...] Coronel Admit Date: 11/30/2024 LOS: 2 days Location:[phone] PCP on file: [facility] Find-a-Doc Principal Problem: Anasarca ASSESSMENT [...] H/H, transfuse <7. Hem/onc following pancytopenia SUBJECTIVE: Mayr Coronel just returned from bone marrow biopsy. [...] Range POC-GLUCOSE 100 70 - 110 mg/dL Director Content Marketing [id number] Hemoglobin Status: Abnormal Collection Time: 12/01/24 3:33 PM Result Value Ref Range Hemoglobin 8.0 (L) 11.2 - 15.7 GM/DL Glucose, Nova Meter Status: Abnormal Collection Time: 12/01/24 4:25 PM Result Value Ref Range POC-GLUCOSE 115 (H) 70 - 110 mg/dL Director Content Marketing [id number] Glucose, Nova Meter Status: Abnormal Collection Time: 12/01/24 7:34 PM Result Value Ref Range POC-GLUCOSE 128 (H) 70 - 110 mg/dL Director Content Marketing [id number] Hemoglobin Status: Abnormal Collection Time: 12/02/24 12:04 [...] POC-GLUCOSE 115 (H) 70 - 110 mg/dL Director Content Marketing [id number] Hemoglobin Status: Abnormal Collection Time: 12/02/24 7:40 [...] Product Identification Red Blood Cells Product Code [id number] Status Information Ready for issue Unit Number [id number] Blood Type 5100 Cross Match Results Compatible Radiology Results (last 3 days) Procedure Component Value Units Date/Time Ultrasound liver [[id number]] Collected: 11/30/24 1643 Order Status: Completed Updated: [...] and dictated by SABINE Yang. US paracentesis [[id number]] Collected: 11/30/24 1637 Order Status: Completed Updated: 11/30/241654 Narrative: ULTRASOUND-GUIDED PARACENTESIS HISTORY: Ascites ATTENDING PHYSICIAN: Dr. Haseeb Gil PHYSICIAN SIDE STITCHER: Gabriel Velasco PA-C FINDINGS: After informed consent [...] by Gabriel Velasco PA-C. Ultrasound renal limited [[id number]] Collected: 11/30/24 1646 Order Status: Completed Updated: [...] Ronnell Tom MD XR chest AP portable [[id number]] Collected: 11/30/24 1215 Order Status: Completed Updated: [...] Ext: +++ Pedal edema , no cyanosis SUPERVISOR DRIED YEAST: Alert, No focal deficit noted grossly Psy: Cooperative Labs: Results for orders placed or performed during the hospital encounter of 11/30/24 (from the past 24 hours) Glucose, Nova Meter Status: None Collection Time: 12/01/24 10:32 AM Result Value Ref Range POC-GLUCOSE 100 70 - 110 mg/dL Director Content Marketing [id number] Hemoglobin Status: Abnormal Collection Time: 12/01/24 3:33 PM Result Value Ref Range Hemoglobin 8.0 (L) 11.2 - 15.7 GM/DL Glucose, Nova Meter Status: Abnormal Collection Time: 12/01/24 4:25 PM Result Value Ref Range POC-GLUCOSE 115 (H) 70 - 110 mg/dL Director Content Marketing [id number] Glucose, Nova Meter Status: Abnormal Collection Time: 12/01/24 7:34 PM Result Value Ref Range POC-GLUCOSE 128 (H) 70 - 110 mg/dL Director Content Marketing [id number] Hemoglobin Status: Abnormal Collection Time: 12/02/24 12:04 [...] POC-GLUCOSE 115 (H) 70 - 110 mg/dL Director Content Marketing [id number] Hemoglobin Status: Abnormal Collection Time: 12/02/24 7:40 [...] Ascites ATTENDING PHYSICIAN: Dr. Haseeb Gil PHYSICIAN SIDE STITCHER: Gabriel Velasco PA-C FINDINGS: After informed consent [...] 1960 Age: 64 year(s) Corporate ID Number: [id number] Gender Female Audio Director: Giovanna Rock Height: 67 inches [facility] Referring Physician: HUEY HURTADO Weight: 225 pounds Interpreting JESSICA RAYMOND MD BMI: 35.24 kg/m^2 Physician: Date of Service: 11/30/2024 Blood Pressure: 118/59 mmHg Room Number: 579 Type of Study: TTE procedure: ECHO COMPLETE (DOPPLER / COLOR) W OR WO CONTRAST. Patient Status: Routine IP [facility]: Adequate visualization History/Tech Notes: Indication: [...] 1.35 m/s E/A ratio: 0.97 m/s Volume osdispfxi077.99 LV length: 8.51 cm ml Volume phzyrkaq81.96 ml LVOT diameter: 1.79 cm Normal sized [...] Valve TR velocity: 2.51 m/s TR gradient: 25.39374 mmHg Estimated RAP: 3 mmHg RVSP: 28.12 [...] subcostal imaging. Recent Labs Lab(s) Units 12/02/24 07 12/02/24 2490 12/02/24 0338 12/02/24 0004 12/01/24 1934 12/01/24 [...] Intake/Output Summary (Last 24 hours) at 12/02/2024 0957 Last data filed at 12/01/2024 1103 Gross [...] renal function - No emergent need of LAMP SHADE MAKER - Monitor H/H and transfuse for Hgb [...] Range POC-GLUCOSE 100 70 - 110 mg/dL Director Content Marketing [id number] Hemoglobin Status: Abnormal Collection Time: 12/01/24 3:33 PM Result Value Ref Range Hemoglobin 8.0 (L) 11.2 - 15.7 GM/DL Glucose, Nova Meter Status: Abnormal Collection Time: 12/01/24 4:25 PM Result Value Ref Range POC-GLUCOSE 115 (H) 70 - 110 mg/dL Director Content Marketing [id number] Glucose, Nova Meter Status: Abnormal Collection Time: 12/01/24 7:34 PM Result Value Ref Range POC-GLUCOSE 128 (H) 70 - 110 mg/dL Director Content Marketing [id number] Hemoglobin Status: Abnormal Collection Time: 12/02/24 12:04 [...] POC-GLUCOSE 115 (H) 70 - 110 mg/dL Director Content Marketing [id number] Hemoglobin Status: Abnormal Collection Time: 12/02/24 7:40 [...] Ascites ATTENDING PHYSICIAN: Dr. Haseeb Gil PHYSICIAN SIDE STITCHER: Gabriel Velasco PA-C FINDINGS: After informed consent [...] CONTRAST TRANSTHORACIC ECHOCARDIOGRAPHY REPORT Demographics Patient Name: RNI JONES : 1960 Age: 64 year(s) Corporate ID Number: [id number] Gender Female Audio Director: Giovanna Rock Height: 67 inches [facility] Referring Physician: HUEY HURTADO Weight: 225 [...] 1.35 m/s E/A ratio: 0.97 m/s Volume aesdgzkzj230.99 LV length: 8.51 cm ml Volume yrrqpewo23.96 ml LVOT diameter: 1.79 cm Normal sized [...] Valve TR velocity: 2.51 m/s TR gradient: 25.92627 mmHg Estimated RAP: 3 mmHg RVSP: 28.12 [...] BODY REMOVAL; Surgeon: Scott Daley MD; Location: [facility]; Service: Gastroenterology; Laterality: N/A; Allergies: Patient [...] Component Value Units Date/Time Ultrasound renal limited [[id number]] Collected: 11/30/241645 Order Status: Completed Updated: 11/30/241648 [...] dictated by Ronnell Tom MD Ultrasound liver [[id number]] Collected: 11/30/24 1643 Order Status: Completed Updated: [...] and dictated by SABINE Yang. US paracentesis [[id number]] Collected: 11/30/24 1637 Order Status: Completed Updated: 11/30/241654 Narrative: ULTRASOUND-GUIDED PARACENTESIS HISTORY: Ascites ATTENDING PHYSICIAN: Dr. Haseeb Gil PHYSICIAN SIDE STITCHER: Gabriel Velasco PA-C FINDINGS: After informed consent [...] Gabriel Velasco PA-C. XR chest AP portable [[id number]] Collected: 11/30/24 1215 Order Status: Completed Updated: [...] by Marielos Sotelo PA-C. US renal complete [[id number]] Order Status: Canceled Assessment Pancytopenia. White blood [...] Range POC-GLUCOSE 102 70 - 110 mg/dL Director Content Marketing [id number] Urinalysis, Reflex Microscopic and Culture If Indicated Status: Abnormal Collection Time: 11/30/24 11:35 AM Result Value Ref Range Color, UA Light Yellow Clarity, UA Turbid (A) Clear Specific Nice, UA 1.011 1.005 - 1.030 pH, UA [...] Range POC-GLUCOSE 107 70 - 110 mg/dL Director Content Marketing [id number] Glucose, Nova Meter Status: None Collection Time: 11/30/24 7:38 PM Result Value Ref Range POC-GLUCOSE 106 70 - 110 mg/dL Director Content Marketing [id number] Magnesium Status: Abnormal Collection Time: 12/01/24 4:05 [...] AM Result Value Ref Range Issue Date/Time [id number] Product Identification Red Blood Cells Product Code [id number] Status Information Transfused Unit Number [id number] Blood Type 5100 Cross Match Results Compatible Glucose, Nova Meter Status: None Collection Time: 12/01/24 5:37 AM Result Value Ref Range POC-GLUCOSE 107 70 - 110 mg/dL Director Content Marketing [id number] Type and Screen Status: None (Preliminary result) Collection Time: 12/01/24 7:08 AM Result Value Ref Range ABO/Rh O Positive Antibody Screen Negative Glucose, Nova Meter Status: None Collection Time: 12/01/24 8:12 AM Result Value Ref Range POC-GLUCOSE 103 70 - 110 mg/dL Director Content Marketing [id number] Ultrasound liver Narrative: CLINICAL INDICATION: Abdominal pain. [...] Images personally reviewed, interpreted and dictated by Haseeb Jayavarapu, MBBS. US paracentesis Narrative: ULTRASOUND-GUIDED PARACENTESIS HISTORY: Ascites ATTENDING PHYSICIAN: Dr. Haseeb Gil PHYSICIAN SIDE STITCHER: Gabriel Velasco PA-C FINDINGS: After informed consent [...] 1960 Age: 64 year(s) Corporate ID Number: [id number] Gender Female Audio Director: Giovanna Rock Height: 67 inches [facility] Referring Physician: HUEY HURTADO Weight: 225 pounds Interpreting JESSICA RAYMOND MD BMI: 35.24 kg/m^2 Physician: Date of Service: 11/30/2024 Blood Pressure: 118/59 mmHg Room Number: 579 Type of Study: TTE procedure: ECHO COMPLETE (DOPPLER / COLOR) W OR WO CONTRAST. Patient Status: Routine IP Study Location: [facility] Quality: Adequate visualization History/Tech Notes: Indication: shortness [...] 1.35 m/s E/A ratio: 0.97 m/s Volume fqtaczadu274.99 LV length: 8.51 cm ml Volume fdcnfuka10.96 ml LVOT diameter: 1.79 cm Normal sized [...] Valve TR velocity: 2.51 m/s TR gradient: 25.07555 mmHg Estimated RAP: 3 mmHg RVSP: 28.12 [...] Ext: +++ Pedal edema , no cyanosis SUPERVISOR [employer] YE[employer]: Alert, No focal deficit noted grossly Psy: Cooperative Labs: Results for orders placed or performed during the hospital encounter of 11/30/24 (from the past 24 hours) Glucose, Nova Meter Status: None Collection Time: 11/30/24 10:46 AM Result Value Ref Range POC-GLUCOSE 102 70 - 110 mg/dL Director Content Marketing [id number] Urinalysis, Reflex Microscopic and Culture If Indicated Status: Abnormal Collection Time: 11/30/24 11:35 AM Result Value Ref Range Color, UA Light Yellow Clarity, UA Turbid (A) Clear Specific Nice, UA 1.011 1.005 - 1.030 pH, UA [...] Range POC-GLUCOSE 107 70 - 110 mg/dL Director Content Marketing [id number] Glucose, Nova Meter Status: None Collection Time: 11/30/24 7:38 PM Result Value Ref Range POC-GLUCOSE 106 70 - 110 mg/dL Director Content Marketing [id number] Magnesium Status: Abnormal Collection Time: 12/01/24 4:05 [...] AM Result Value Ref Range Issue Date/Time [id number] Product Identification Red Blood Cells Product Code [id number] Status Information Transfused Unit Number [id number] Blood Type 5100 Cross Match Results Compatible Glucose, Nova Meter Status: None Collection Time: 12/01/24 5:37 AM Result Value Ref Range POC-GLUCOSE 107 70 - 110 mg/dL Director Content Marketing [id number] Type and Screen Status: None (Preliminary result) Collection Time: 12/01/24 7:08 AM Result Value Ref Range ABO/Rh O Positive Antibody Screen Negative Glucose, Nova Meter Status: None Collection Time: 12/01/24 8:12 AM Result Value Ref Range POC-GLUCOSE 103 70 - 110 mg/dL Director Content Marketing [id number] Ultrasound liver Narrative: CLINICAL INDICATION: Abdominal pain. [...] Ascites ATTENDING PHYSICIAN: Dr. Haseeb Gil PHYSICIAN SIDE STITCHER: Gabriel Velasco PA-C FINDINGS: After informed consent [...] 1960 Age: 64 year(s) Corporate ID Number: [id number] Gender Female Audio Director: Giovanna Rock Height: 67 inches [facility] Referring Physician: HUEY HURTADO Weight: 225 pounds Interpreting JESISCA RAYMOND MD BMI: 35.24 kg/m^2 Physician: Date of Service: 11/30/2024 Blood Pressure: 118/59 mmHg Room Number: 579 Type of Study: TTE procedure: ECHO COMPLETE (DOPPLER / COLOR) W OR WO CONTRAST. Patient Status: Routine IP [facility]quate [facility] History/Tech Notes: Indication: [...] .99 LV length: 8.51 cm ml Volume jzmxztji59.96 ml LVOT diameter: 1.79 cm Normal sized [...] Valve TR velocity: 2.51 m/s TR gradient: 25.48573 mmHg Estimated RAP: 3 mmHg RVSP: 28.12 [...] renal function - No emergent need of LAMP SHADE MAKER - Monitor H/H and transfuse for Hgb [...] The patient's fine motor coordination is intact. Wjygju-va-noac: LUE (3) Minimal Impairment: Able to accomplish [...] in chair, to don socks Outcome Measures [facility] Daily Living Functional Assessment How much help [...] (Minimal/Contact guard/Supervision/Setup) 4=None (Modified independent/Independent) The patient's [facility] raw score is 16. The patient currently has 53.32% functional impairment. Clinicians are most likely to recommend inpatient/SNF/skilled nursing care for patients with scores between 6-17, [...] diabetes, CKD, CAD, arthritis. Patient presented to [facility] with swollen abdomen, abdominal discomfort and bilateral lower extremity pitting edema.Patient's BUN/creatinine elevated, and patient subsequently transferred to [facility] for hepatorenal syndrome evaluation. Admits to 4 [...] days. Patient's niece forced patient to visit [facility] emergency room today she really loves [...] hyperlipidemia, diabetes, CAD, arthritis. Patient presented to [facility] with swollen abdomen, abdominal discomfort and bilateral lower extremity pitting edema. Patient diagnosed with anasarca, and admitted for hepatorenal/temporary dialysis evaluation. Problems as listed below: [facility] labs reviewed prior to current hospitalization: [...] mg IV every 12. CT abdomen/pelvis from [facility] shows ascites. Therefore ordered paracentesis for [...] anasarca section. Aldactone 25 mg p.o. daily GEMRÁN: - As above in anasarca section Diabetes: [...] in this encounter Procedure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 ORDERABLES Final Result Performing Organization Address [facility] de Phone Number [facility] [address] [phone] * (ABNORMAL) Glucose, Nova Meter (12/14/2024 10:29 AM EDT) [facility] POC-GLUCOSE 215(H) 70 - 110 mg/dL 12/14/2024 10:[address] [facility] Comment: In the event of poor peripheral blood flow, venous or arterial blood should be used due to the potential of erroneous results. Notified Nurse RBV Director Content Marketing [id number] 12/14/2024 10:[address] [facility] Blood WHOLE BLOOD / Unknown 12/14/2024 10:29 AM EDT 12/14/2024 10:[address] [facility] - 12/14/2024 10:30 AM EDT Director Content Marketing ID is - [id number] David Coffman PA-C POINT OF CARE TEST ORDERABLES Final Result Performing Organization Address [facility] de Phone Number [facility] [address] [phone] * ECG 12 lead (12/14/2024 9:10 AM EDT) Pathologist [facility] VENTRICULAR RATE EKG/MIN 89 BPM GE MUSE ATRIAL RATE (MCT) 89 BPM GE MUSE IL Interval 146 ms GE MUSE QRS-INTERVAL (MSEC) 86 ms GE MUSE QT Interval 432 ms GE MUSE QTC Interval 525 ms GE MUSE P [place] 34 degrees GE MUSE R AXIS (MCT) -13 degrees GE MUSE T Wave [place] -2 degrees GE MUSE [place] Diagnosis Normal sinus rhythm Septal infarct (cited on or before 14-DEC-2024 ) Confirmed by DEYSI FOSS M.D. ([id number]) on 12/14/2024 5:07:26 PM GE MUSE 12/14/2024 9:10 AM EDT 12/14/2024 5:07 PM EDT Deysi Foss MD ECG ORDERABLES Final Result GE MUSE * (ABNORMAL) Glucose, Nova Meter (12/14/2024 4:24 AM EDT) POC-GLUCOSE 140(H) 70 - 110 mg/dL 12/14/2024 4:[address] [facility] Comment: In the event of poor peripheral blood flow, venous or arterial blood should be used due to the potential of erroneous results. Protocols Followed Director Content Marketing [id number] 12/14/2024 4:[address] [facility] Blood WHOLE BLOOD / Unknown 12/14/2024 4:24 AM EDT 12/14/2024 4:[address] [facility] - 12/14/2024 4:26 AM EDT Director Content Marketing ID is - [id number] us David Coffman PA-C POINT OF CARE TEST ORDERABLES Final Result Performing Organization Address City/[facility]/ZIP Co de Phone Number [facility] [address] [phone] * (ABNORMAL) Comprehensive metabolic panel (12/14/2024 2:54 AM EDT) Sodium 145 136 - 145 meq/L 12/14/2024 4:[address] [facility] Potassium 3.5 3.4 - 5.1 meq/L 12/14/2024 4:[address] [facility] Chloride 109 98 - 112 meq/L 12/14/2024 4:[address] [facility] CO2 27 22 - 29 meq/L 12/14/2024 4:13 AM [facility] Calcium 8.6 8.4 - 10.2 mg/dL 12/14/2024 4:13 AM [facility] Glucose 146(H) 82 - 115 mg/dL 12/14/2024 4:13 AM [facility] BUN 67.7(H) 9.8 - 20.1 mg/dL 12/14/2024 4:13 AM [facility] Creatinine 2.22(H) 0.57 - 1.11 mg/dL 12/14/2024 4:13 AM [facility] BUN/Creatinine 30(H) 8 - 20 12/14/2024 4:13 AM [facility] eGFR (mL/min/1.73m2) 25(L) >=60 mL/min/1. 73m2 12/14/2024 4:13 AM [facility] Albumin 3.2(L) 3.5 - 5.0 g/dL 12/14/2024 4:13 AM [facility] Alkaline Phosphatase 56 40 - 150 U/L 12/14/2024 4:13 AM [facility] ALT 21 <=34 U/L 12/14/2024 4:13 AM [facility] Comment: ALT2 reagent used for testing does not contain P5P supplementation and therefore may miss ALT elevations in patients with B6 deficiency. This population may be as high as 10% in the [place], with risk factors including malabsorption, drug interactions, and alcoholic hepatitis. AST 52(H) 11 - 34 U/L 12/14/2024 4:13 AM [facility] Comment: AST2 reagent used for testing does not contain P5P supplementation and therefore may miss AST elevations in patients with B6 deficiency. This population may be as high as 10% in the [place], with risk factors including malabsorption, drug interactions, and alcoholic hepatitis. Total Bilirubin 0.9 0.2 - 1.2 mg/dL 12/14/2024 4:13 AM [facility] Protein, Total 5.9(L) 6.4 - 8.3 g/dL 12/14/2024 4:13 AM [facility] Globulin 2.7 2.5 - 4.1 g/dL 12/14/2024 4:[address] [facility] Anion Gap 13(H) 4 - 12 12/14/2024 4:[address] [facility] A/G Ratio 1.2 0.7 - 1.9 12/14/2024 4:[address] [facility] Osmolality Calc 311.0 mOsm/kg 4:[address] [facility] Blood Venipuncture / Unknown 12/14/2024 2:54 AM EDT 12/14/2024 3:26 AM EDT David Coffman PA-C LAB BLOOD ORDERABLES Final Re sult [facility] [address] [phone] * (ABNORMAL) CBC with automated diff (12/14/2024 2:54 AM EDT) WBC 1.4(LL) 4.0 - 10.0 K/ L 12/14/2024 3:[address] [facility] RBC 2.45(L) 3.93 - 5.22 M/ L 12/14/2024 3:[address] [facility] Hemoglobin 7.6(L) 11.2 - 15.7 GM/DL 12/14/2024 3:[address] [facility] Hematocrit 24.1(L) 34.1 - 44.9 % 12/14/2024 3:[address] [facility] MCV 98(H) 79 - 95 fL 12/14/2024 3:[address] [facility] MCH 31.0 25.6 - 32.2 pg 12/14/2024 3:[address] [facility] MCHC 31.5(L) 32.2 - 35.5 GM/DL 12/14/2024 3:[address] [facility] RDW 16.3(H) 11.7 - 14.4 % 12/14/2024 3:[address] [facility] Platelets 51(L) 140 - 375 K/CU MM 12/14/2024 3:[address] [facility] MPV 12.3 9.4 - 12.3 fL 12/14/2024 3:[address] [facility] % Neutros 54 34 - 71 % 12/14/2024 3:[address] [facility] % Lymphs 32 19 - 52 % 12/14/2024 3:[address] [facility] % Monos 14(H) 5 - 13 % 12/14/2024 3:[address] [facility] % Eos 0(L) 1 - 6 % 12/14/2024 3:[address] [facility] % Baso 1 0 - 1 % 12/14/2024 3:[address] [facility] NRBC Absolute <0.01 0 - 0.012 K/ul 12/14/2024 3:[address] [facility] # Neutros 0.76(L) 1.56 - 6.13 K/ L 12/14/2024 3:[address] [facility] # Lymphs 0.45(L) 1.18 - 3.74 K/ L 12/14/2024 3:[address] [facility] # Monos 0.19(L) 0.24 - 0.86 K/ L 12/14/2024 3:[address] [facility] # Eos <0.03(L) 0.04 - 0.36 K/ L 12/14/2024 3:[address] [facility] # Baso <0.03 0.01 - 0.08 K/ L 12/14/2024 3:[address] [facility] Immature Granulocytes-Re lative 0.00(L) 0.01 - 0.43 % 12/14/2024 3:[address] [facility] # IG <0.03 0.00 - 0.03 K/uL 12/14/2024 3:[address] [facility] Blood Venipuncture / Unknown 12/14/2024 2:54 AM EDT 12/14/2024 3:[address] [facility] - 12/14/2024 3:45 AM EDT [...] ORDERABLES Final Re sult Performing Organization Address [facility] Co de Phone Number [facility] [address] [phone] * (ABNORMAL) Glucose, Nova Meter (12/13/2024 8:20 PM EDT) POC-GLUCOSE 186(H) 70 - 110 mg/dL 12/13/2024 8:[address] [facility] Comment: In the event of poor peripheral blood flow, venous or arterial blood should be used due to the potential of erroneous results. Protocols Followed Director Content Marketing [id number] 12/13/2024 8:[address] [facility] Blood WHOLE BLOOD / Unknown 12/13/2024 8:20 PM EDT 12/13/2024 8:[address] [facility] - 12/13/2024 8:21 PM EDT Director Content Marketing ID is - [id number] us David Coffman PA-C POINT OF CARE TEST ORDERABLES Final Result Performing Organization Address [facility] Co de Phone Number [facility] [address] [place] [address], [facility] [phone] * (ABNORMAL) Glucose, Nova Meter (12/13/2024 4:24 PM EDT) POC-GLUCOSE 156(H) 70 - 110 mg/dL 12/13/2024 4:[address] [facility] Comment: In the event of poor peripheral blood flow, venous or arterial blood should be used due to the potential of erroneous results. Notified Nurse RBV Director Content Marketing [id number] 12/13/2024 4:[address] [facility] Blood WHOLE BLOOD / Unknown 12/13/2024 4:24 PM EDT 12/13/2024 4:[address] [facility] - 12/13/2024 4:25 PM EDT Director Content Marketing ID is - [id number] David Coffman PA-C POINT OF CARE TEST ORDERABLES Final Result Performing Organization Address [facility] Co de Phone Number [facility] [address] [phone] * ECG 12 lead (12/13/2024 1:14 PM EDT) VENTRICULAR RATE EKG/MIN 86 BPM GE MUSE ATRIAL RATE (MCT) 86 BPM GE MUSE IL Interval 144 ms GE MUSE QRS-INTERVAL (MSEC) 86 ms GE MUSE QT Interval 384 ms GE MUSE QTC Interval 459 ms GE MUSE P [place] 46 degrees GE MUSE R AXIS (MCT) -4 degrees GE MUSE T Wave [place] 43 degrees GE MUSE [place] Diagnosis Normal sinus rhythm Poor R wave progression Confirmed by Aleksandr ROBIN, SANJIV ([id number]) on 12/14/2024 1:01:45 AM GE MUSE 12/13/2024 1:14 PM EDT 12/14/2024 1:01 AM EDT Deysi Foss MD ECG ORDERABLES Final Result Performing Organization Address [facility] Co de Phone Number GE MUSE * (ABNORMAL) Glucose, Nova Meter (12/13/2024 1:07 PM EDT) POC-GLUCOSE 235(H) 70 - 110 mg/dL 12/15/2024 12:[address] [facility] Comment:In the event of poor peripheral blood flow, venous or arterial blood should be used due to the potential of erroneous results. Director Content Marketing [id number] 12/15/2024 12:[address] [facility] Blood WHOLE BLOOD / Unknown 12/13/2024 1:07 PM EDT 12/15/2024 12:[address] [facility] - 12/15/2024 12:32 AM EDT Director Content Marketing ID is - [id number] [facility] Andry VALDIVIA-C POINT OF CARE TEST ORDERABLES Final Result Performing Organization Address [facility] Phone Number [facility] [address] [phone] * (ABNORMAL) Glucose, Nova Meter (12/13/2024 11:15 AM EDT) POC-GLUCOSE 221(H) 70 - 110 mg/dL 12/13/2024 11:[address] [facility] Comment:In the event of poor peripheral blood flow, venous or arterial blood should be used due to the potential of erroneous results. Director Content Marketing [id number] 12/13/2024 11:[address] [facility] Blood WHOLE BLOOD / Unknown 12/13/2024 11:15 AM EDT 12/13/2024 11:[address] [facility] - 12/13/2024 11:17 AM EDT Director Content Marketing ID is - [id number] David MCELROYC POINT OF CARE TEST ORDERABLES Final Result Performing Organization Address [facility] Phone Number [facility] [address] [phone] * (ABNORMAL) Glucose, Nova Meter (12/13/2024 5:46 AM EDT) POC-GLUCOSE 127(H) 70 - 110 mg/dL 12/13/2024 5:[address] [facility] Comment: In the event of poor peripheral blood flow, venous or arterial blood should be used due to the potential of erroneous results. Protocols Followed Notified Nurse RBV Director Content Marketing [id number] 12/13/2024 5:[address] [facility] Blood WHOLE BLOOD / Unknown 12/13/2024 5:46 AM EDT 12/13/2024 5:[address] [facility] - 12/13/2024 5:48 AM EDT Director Content Marketing ID is - [id number] us David Coffman PA-C POINT OF CARE TEST ORDERABLES Final Result Performing Organization Address [facility] Co de Phone Number [facility] [address] [phone] * (ABNORMAL) CBC Scan (12/13/2024 3:15 AM EDT) Pathologist [facility] Platelet Estimate Decreased (A) Adequate 12/13/2024 4:[address] [facility] RBC Morphology abnormal( A) Normal 12/13/2024 4:[address] [facility] Anisocytosis 1+ 12/13/2024 4:[address] [facility] Hypochromia 1+ 12/13/2024 4:[address] [facility] Ovalocytes 1+ 12/13/2024 4:[address] [facility] Blood Venipuncture / Unknown 12/13/2024 3:15 AM EDT 12/13/2024 3:27 AM EDT Venkatesh Stephen MD LAB BLOOD ORDERABLES Final Resul t Performing Organization Address [facility] de Phone Number [facility] [address] [phone] * (ABNORMAL) Hepatic function panel (12/13/2024 3:15 AM EDT) Pathologist [facility] Protein, Total 5.7(L) 6.4 - 8.3 g/dL 12/13/2024 4:[address] [facility] Albumin 3.1(L) 3.5 - 5.0 g/dL 12/13/2024 4:[address] [facility] Total Bilirubin 0.8 0.2 - 1.2 mg/dL 12/13/2024 4:[address] [facility] Bilirubin, Direct 0.4 0.0 - 0.5 mg/dL 12/13/2024 4:[address] [facility] Alkaline Phosphatase 53 40 - 150 U/L 12/13/2024 4:[address] [facility] Globulin 2.6 2.5 - 4.1 g/dL 12/13/2024 4:[address] [facility] A/G Ratio 1.2 0.7 - 1.9 12/13/2024 4:[address] [facility] AST 42(H) 11 - 34 U/L 12/13/2024 4:[address] [facility] Comment: AST2 reagent used for testing does not contain P5P supplementation and therefore may miss AST elevations in patients with B6 deficiency. This population may be as high as 10% in the [place], with risk factors including malabsorption, drug interactions, and alcoholic hepatitis. ALT 16 <=34 U/L 12/13/2024 4:[address] [facility] Comment: ALT2 reagent used for [...] LAB BLOOD ORDERABLES Final Resu lt [facility] [address] [phone] * (ABNORMAL) CBC with automated diff (12/13/2024 3:15 AM EDT) WBC 1.4(LL) 4.0 - 10.0 K/ L 12/13/2024 3:[address] [facility] RBC 2.42(L) 3.93 - 5.22 M/ L 12/13/2024 3:[address] [facility] Hemoglobin 7.4(L) 11.2 - 15.7 GM/DL 12/13/2024 3:[address] [facility] Hematocrit 23.4(L) 34.1 - 44.9 % 12/13/2024 3:[address] [facility] MCV 97(H) 79 - 95 fL 12/13/2024 3:[address] [facility] MCH 30.6 25.6 - 32.2 pg 12/13/2024 3:[address] [facility] MCHC 31.6(L) 32.2 - 35.5 GM/DL 12/13/2024 3:[address] [facility] RDW 16.4(H) 11.7 - 14.4 % 12/13/2024 3:[address] [facility] Platelets 52(L) 140 - 375 K/CU MM 12/13/2024 3:[address] [facility] MPV 12.1 9.4 - 12.3 fL 12/13/2024 3:[address] [facility] % Neutros 56 34 - 71 % 12/13/2024 3:[address] [facility] % Lymphs 28 19 - 52 % 12/13/2024 3:[address] [facility] % Monos 15(H) 5 - 13 % 12/13/2024 3:[address] [facility] % Eos 0(L) 1 - 6 % 12/13/2024 3:[address] [facility] % Baso 1 0 - 1 % 12/13/2024 3:[address] [facility] NRBC Absolute <0.01 0 - 0.012 K/ul 12/13/2024 3:[address] [facility] # Neutros 0.80(L) 1.56 - 6.13 K/ L 12/13/2024 3:[address] [facility] # Lymphs 0.40(L) 1.18 - 3.74 K/ L 12/13/2024 3:[address] [facility] # Monos 0.21(L) 0.24 - 0.86 K/ L 12/13/2024 3:[address] [facility] # Eos <0.03(L) 0.04 - 0.36 K/ L 12/13/2024 3:[address] [facility] # Baso <0.03 0.01 - 0.08 K/ L 12/13/2024 3:[address] [facility] Immature Granulocytes-Re lative 0.00(L) 0.01 - 0.43 % 12/13/2024 3:[address] [facility] # IG <0.03 0.00 - 0.03 K/uL 12/13/2024 3:[address] [facility] Blood Venipuncture / Unknown 12/13/2024 3:15 AM EDT 12/13/2024 3:[address] [facility] - 12/13/2024 3:40 AM EDT [...] LAB BLOOD ORDERABLES Final Resul t [facility] [address] [phone] * (ABNORMAL) Basic Metabolic Panel (12/13/2024 3:15 AM EDT) Sodium 147(H) 136 - 145 meq/L 12/13/2024 4:[address] [facility] Potassium 3.5 3.4 - 5.1 meq/L 12/13/2024 4:[address] [facility] CO2 27 22 - 29 meq/L 12/13/2024 4:[address] [facility] Chloride 110 98 - 112 meq/L 12/13/2024 4:[address] [facility] Glucose 135(H) 82 - 115 mg/dL 12/13/2024 4:[address] [facility] BUN 71.9(H) 9.8 - 20.1 mg/dL 12/13/2024 4:[address] [facility] Creatinine 2.29(H) 0.57 - 1.11 mg/dL 12/13/2024 4:[address] [facility] BUN/Creatinine 31(H) 8 - 20 12/13/2024 4:[address] [facility] Calcium 8.5 8.4 - 10.2 mg/dL 12/13/2024 4:[address] [facility] Anion Gap 14(H) 4 - 12 12/13/2024 4:[address] [facility] eGFR (mL/min/1.73m2) 24(L) >=60 mL/min/1.7 3m2 12/13/2024 4:[address] [facility] Osmolality Calc 315.6 mOsm/kg 4:[address] [facility] Blood Venipuncture / Unknown 12/13/2024 3:15 AM EDT 12/13/2024 3:39 AM EDT [facility] Venkatesh Stephen MD LAB BLOOD ORDERABLES Final Resul t [facility] [address] [place] [address] * (ABNORMAL) Glucose, Nova Meter (12/12/2024 8:01 PM EDT) POC-GLUCOSE 182(H) 70 - 110 mg/dL 12/12/2024 8:[address] [facility] Comment: In the event of poor peripheral blood flow, venous or arterial blood should be used due to the potential of erroneous results. Protocols Followed Notified Nurse RBV Director Content Marketing [id number] 12/12/2024 8:[address] [facility] Blood WHOLE BLOOD / Unknown 12/12/2024 8:01 PM EDT 12/12/2024 8:[address] [facility] - 12/12/2024 8:02 PM EDT Director Content Marketing ID is - [id number] [facility] Andry Celoron PA-C POINT OF CARE TEST ORDERABLES Final Result Performing Organization Address [facility] Co de Phone Number [facility] [address] [phone] * (ABNORMAL) Glucose, Nova Meter (12/12/2024 3:51 PM EDT) POC-GLUCOSE 163(H) 70 - 110 mg/dL 12/12/2024 3:[address] [facility] Comment: In the event of poor peripheral blood flow, venous or arterial blood should be used due to the potential of erroneous results. Notified Nurse RBV Director Content Marketing [id number] 12/12/2024 3:[address] [facility] Blood WHOLE BLOOD / Unknown 12/12/2024 3:51 PM EDT 12/12/2024 3:52 PM EDT [facility] - 12/12/2024 3:52 PM EDT Director Content Marketing ID is - [id number] [facility] Andry Celoron PA-C POINT OF CARE TEST ORDERABLES Final Result Performing Organization Address [facility] de Phone Number [facility] [address] [phone] * (ABNORMAL) Glucose, Nova Meter (12/12/2024 10:31 AM EDT) POC-GLUCOSE 221(H) 70 - 110 mg/dL 12/12/2024 10:[address] [facility] Comment: In the event of poor peripheral blood flow, venous or arterial blood should be used due to the potential of erroneous results. Notified Nurse RBV Director Content Marketing [id number] 12/12/2024 10:[address] [facility] Blood WHOLE BLOOD / Unknown 12/12/2024 10:31 AM EDT 12/12/2024 10:32 AM EDT [facility] - 12/12/2024 10:32 AM EDT Director Content Marketing ID is - [id number] David Coffman PA-C POINT OF CARE TEST ORDERABLES Final Result Performing Organization Address [facility]/ZIP Co de Phone Number [facility] [address] [phone] * ECG 12 lead (12/12/2024 9:22 AM EDT) VENTRICULAR RATE EKG/MIN 87 BPM GE MUSE ATRIAL RATE (MCT) 87 BPM GE MUSE [place] Interval 140 ms GE MUSE QRS-INTERVAL (MSEC) 90 ms GE MUSE QT Interval 414 ms GE MUSE QTC Interval 498 ms GE MUSE P [place] 26 degrees GE MUSE R AXIS (MCT) -17 degrees GE MUSE T Wave [place] 24 degrees GE MUSE [place] Diagnosis Normal sinus rhythm Leftward axis When compared with ECG of 11-DEC-2024 10:29, No significant change was found Confirmed by Aleksandr ROBIN STEVE ([id number]) on 12/12/2024 11:05:42 PM GE MUSE 12/12/2024 9:22 AM EDT 12/12/2024 11:05 PM EDT Deysi Foss MD ECG ORDERABLES Final Result Performing Organization Address [facility] Co de Phone Number [employer] [facility] * (ABNORMAL) Glucose, Nova Meter (12/12/2024 5:43 AM EDT) POC-GLUCOSE 149(H) 70 - 110 mg/dL 12/12/2024 5:[address] [facility] Comment: In the event of poor peripheral blood flow, venous or arterial blood should be used due to the potential of erroneous results. Notified Nurse RBV Director Content Marketing [id number] 12/12/2024 5:[address] [facility] Blood WHOLE BLOOD / Unknown 12/12/2024 5:43 AM EDT 12/12/2024 5:[address] [facility] - 12/12/2024 5:44 AM EDT Director Content Marketing ID is - [id number] David Coffman PA-C POINT OF CARE TEST ORDERABLES Final Result Performing Organization Address [facility]/ZIP Co de Phone Number [facility] [address] [phone] * (ABNORMAL) CBC Scan (12/12/2024 3:47 AM EDT) Pathologist [facility] Platelet Estimate Decreased (A) Adequate 12/12/2024 6:[address] [facility] RBC Morphology abnormal( A) Normal 12/12/2024 6:[address] [facility] Anisocytosis 1+ 12/12/2024 6:[address] [facility] Hypochromia 1+ 12/12/2024 6:[address] [facility] Macrocytes 1+ 12/12/2024 6:[address] [facility] Ovalocytes 1+ 12/12/2024 6:[address] [facility] Poikilocytes 1+ 12/12/2024 6:[address] [facility] Blood Venipuncture / Unknown 12/12/2024 3:47 AM EDT 12/12/2024 4:40 AM EDT Venkatesh Stephen MD LAB BLOOD ORDERABLES Final Resul t Performing Organization Address [facility]/ZIP Co de Phone Number [facility] [address] [phone] * (ABNORMAL) CBC with automated diff (12/12/2024 3:47 AM EDT) Pathologist [facility] WBC 1.4(LL) 4.0 - 10.0 K/ L 12/12/2024 6:[address] [facility] RBC 2.39(L) 3.93 - 5.22 M/ L 12/12/2024 6:[address] [facility] Hemoglobin 7.3(L) 11.2 - 15.7 GM/DL 12/12/2024 6:[address] [facility] Hematocrit 23.2(L) 34.1 - 44.9 % 12/12/2024 6:[address] [facility] MCV 97(H) 79 - 95 fL 12/12/2024 6:[address] [facility] MCH 30.5 25.6 - 32.2 pg 12/12/2024 6:[address] [facility] MCHC 31.5(L) 32.2 - 35.5 GM/DL 12/12/2024 6:[address] [facility] RDW 16.7(H) 11.7 - 14.4 % 12/12/2024 6:[address] [facility] Platelets 43(L) 140 - 375 K/CU MM 12/12/2024 6:[address] [facility] MPV 11.8 9.4 - 12.3 fL 12/12/2024 6:[address] [facility] % Neutros 57 34 - 71 % 12/12/2024 6:[address] [facility] % Lymphs 29 19 - 52 % 12/12/2024 6:[address] [facility] % Monos 13 5 - 13 % 12/12/2024 6:[address] [facility] % Eos 1 1 - 6 % 12/12/2024 6:[address] [facility] % Baso 0 0 - 1 % 12/12/2024 6:[address] [facility] NRBC Absolute <0.01 0 - 0.012 K/ul 12/12/2024 6:[address] [facility] # Neutros 0.80(L) 1.56 - 6.13 K/ L 12/12/2024 6:[address] [facility] # Lymphs 0.41(L) 1.18 - 3.74 K/ L 12/12/2024 6:[address] [facility] # Monos 0.18(L) 0.24 - 0.86 K/ L 12/12/2024 6:[address] [facility] # Eos <0.03(L) 0.04 - 0.36 K/ L 12/12/2024 6:[address] [facility] # Baso <0.03 0.01 - 0.08 K/ L 12/12/2024 6:[address] [facility] Immature Granulocytes-Re lative 0.70(H) 0.01 - 0.43 % 12/12/2024 6:[address] [facility] # IG <0.03 0.00 - 0.03 K/uL 12/12/2024 6:[address] [facility] Blood Venipuncture / Unknown 12/12/2024 3:47 AM EDT 12/12/2024 4:[address] [facility] - 12/12/2024 6:07 AM EDT [...] LAB BLOOD ORDERABLES Final Resul t [facility] [address] [phone] * (ABNORMAL) Basic Metabolic Panel (12/12/2024 3:47 AM EDT) Sodium 144 136 - 145 meq/L 12/12/2024 5:[address] [facility] Potassium 3.4 3.4 - 5.1 meq/L 12/12/2024 5:[address] [facility] CO2 26 22 - 29 meq/L 12/12/2024 5:[address] [facility] Chloride 110 98 - 112 meq/L 12/12/2024 5:[address] [facility] Glucose 140(H) 82 - 115 mg/dL 12/12/2024 5:[address] [facility] BUN 70.7(H) 9.8 - 20.1 mg/dL 12/12/2024 5:[address] [facility] Creatinine 2.28(H) 0.57 - 1.11 mg/dL 12/12/2024 5:[address] [facility] BUN/Creatinine 31(H) 8 - 20 12/12/2024 5:[address] [facility] Calcium 8.3(L) 8.4 - 10.2 mg/dL 12/12/2024 5:[address] [facility] Anion Gap 11 4 - 12 12/12/2024 5:[address] [facility] eGFR (mL/min/1.73m2) 24(L) >=60 mL/min/1.7 3m2 12/12/2024 5:[address] [facility] Osmolality Calc 309.9 mOsm/kg 5:[address] [facility] Blood Venipuncture / Unknown 12/12/2024 3:47 AM EDT 12/12/2024 4:41 AM EDT Venkatesh Stephen MD LAB BLOOD ORDERABLES Final Resul t Performing Organization Address [facility] Co de Phone Number [facility] [address] [phone] * (ABNORMAL) Glucose, Nova Meter (12/11/2024 7:32 PM EDT) [facility] Signature POC-GLUCOSE 159(H) 70 - 110 mg/dL 12/11/2024 7:[address] [facility] Comment: In the event of poor peripheral blood flow, venous or arterial blood should be used due to the potential of erroneous results. Notified Nurse RBV Director Content Marketing [id number] 12/11/2024 7:[address] [facility] Blood WHOLE BLOOD / Unknown 12/11/2024 7:32 PM EDT 12/11/2024 7:[address] [facility] - 12/11/2024 7:33 PM EDT Director Content Marketing ID is - [id number] us David Coffman PA-C POINT OF CARE TEST ORDERABLES Final Result Performing Organization Address [facility] Co de Phone Number [facility] [address] [phone] * (ABNORMAL) Glucose, Nova Meter (12/11/2024 4:18 PM EDT) POC-GLUCOSE 156(H) 70 - 110 mg/dL 12/11/2024 4:[address] [facility] Comment: In the event of poor peripheral blood flow, venous or arterial blood should be used due to the potential of erroneous results. Notified Nurse RBV Director Content Marketing [id number] 12/11/2024 4:[address] [facility] Blood WHOLE BLOOD / Unknown 12/11/2024 4:18 PM EDT 12/11/2024 4:[address] [facility] - 12/11/2024 4:19 PM EDT Director Content Marketing ID is - [id number] [facility] Andry Coffman PA-C POINT OF CARE TEST ORDERABLES Final Result Performing Organization Address [facility] Co de Phone Number [facility] [address] [phone] * (ABNORMAL) Glucose, Nova Meter (12/11/2024 10:43 AM EDT) Pathologist [facility] POC-GLUCOSE 254(H) 70 - 110 mg/dL 12/11/2024 10:[address] [facility] Comment: In the event of poor peripheral blood flow, venous or arterial blood should be used due to the potential of erroneous results. Notified Nurse RBV Director Content Marketing [id number] 12/11/2024 10:[address] [facility] Blood WHOLE BLOOD / Unknown 12/11/2024 10:43 AM EDT 12/11/2024 10:[address] [facility] - 12/11/2024 10:45 AM EDT Director Content Marketing ID is - [id number] David Coffman PA-C POINT OF CARE TEST ORDERABLES Final Result Performing Organization Address [facility] Co de Phone Number [facility] [address] [place], [place] [address] [phone] * ECG 12 lead (12/11/2024 10:29 AM EDT) Pathologist [facility] VENTRICULAR RATE EKG/MIN 85 BPM GE MUSE ATRIAL RATE (MCT) 85 BPM GE MUSE IL Interval 142 ms GE MUSE QRS-INTERVAL (MSEC) 92 ms GE MUSE QT Interval 400 ms GE MUSE QTC Interval 476 ms GE MUSE P [place] 34 degrees GE MUSE R AXIS (MCT) -10 degrees GE MUSE T Wave [place] 57 degrees GE MUSE [place] Diagnosis Normal sinus rhythm Minimal voltage criteria [...] Glucose, Nova Meter (12/11/2024 5:15 AM EDT) [facility] POC-GLUCOSE 143(H) 70 - 110 mg/dL 12/11/2024 5:[address] [facility] Comment: In the event of poor peripheral blood flow, venous or arterial blood should be used due to the potential of erroneous results. Notified Nurse RBV Director Content Marketing [id number] 12/11/2024 5:[address] [facility] Blood WHOLE BLOOD / Unknown 12/11/2024 5:15 AM EDT 12/11/2024 5:[address] [facility] - 12/11/2024 5:16 AM EDT Director Content Marketing ID is - [id number] us Venkatesh Stephen MD POINT OF CARE TEST ORDERABLES Fi nal Result [facility] [address] [phone] * (ABNORMAL) Basic Metabolic Panel (12/11/2024 3:39 AM EDT) Sodium 146(H) 136 - 145 meq/L 12/11/2024 4:[address] [facility] Potassium 3.7 3.4 - 5.1 meq/L 12/11/2024 4:[address] [facility] CO2 26 22 - 29 meq/L 12/11/2024 4:[address] [facility] Chloride 114(H) 98 - 112 meq/L 12/11/2024 4:[address] [facility] Glucose 154(H) 82 - 115 mg/dL 12/11/2024 4:[address] [facility] BUN 74.9(H) 9.8 - 20.1 mg/dL 12/11/2024 4:[address] [facility] Creatinine 2.61(H) 0.57 - 1.11 mg/dL 12/11/2024 4:[address] [facility] BUN/Creatinine 29(H) 8 - 20 12/11/2024 4:[address] [facility] Calcium 8.2(L) 8.4 - 10.2 mg/dL 12/11/2024 4:[address] [facility] Anion Gap 10 4 - 12 12/11/2024 4:[address] [facility] eGFR (mL/min/1.73m2) 20(L) >=60 mL/min/1.7 3m2 12/11/2024 4:[address] [facility] Osmolality Calc 315.9 mOsm/kg 4:[address] [facility] Blood Venipuncture / Unknown 12/11/2024 3:39 AM EDT 12/11/2024 3:59 AM EDT us Venkatesh Stephen MD LAB BLOOD ORDERABLES Final Resul t [facility] [address] [phone] * (ABNORMAL) CBC with automated diff (12/11/2024 3:36 AM EDT) WBC 1.7(LL) 4.0 - 10.0 K/ L 12/11/2024 4:[address] [facility] RBC 2.50(L) 3.93 - 5.22 M/ L 12/11/2024 4:[address] [facility] Hemoglobin 7.7(L) 11.2 - 15.7 GM/DL 12/11/2024 4:[address] [facility] Hematocrit 24.4(L) 34.1 - 44.9 % 12/11/2024 4:[address] [facility] MCV 98(H) 79 - 95 fL 12/11/2024 4:[address] [facility] MCH 30.8 25.6 - 32.2 pg 12/11/2024 4:[address] [facility] MCHC 31.6(L) 32.2 - 35.5 GM/DL 12/11/2024 4:[address] [facility] RDW 16.9(H) 11.7 - 14.4 % 12/11/2024 4:[address] [facility] Platelets 50(L) 140 - 375 K/CU MM 12/11/2024 4:[address] [facility] MPV 11.7 9.4 - 12.3 fL 12/11/2024 4:[address] [facility] % Neutros 58 34 - 71 % 12/11/2024 4:[address] [facility] % Lymphs 27 19 - 52 % 12/11/2024 4:[address] [facility] % Monos 15(H) 5 - 13 % 12/11/2024 4:[address] [facility] % Eos 0(L) 1 - 6 % 12/11/2024 4:[address] [facility] % Baso 1 0 - 1 % 12/11/2024 4:[address] [facility] NRBC Absolute <0.01 0 - 0.012 K/ul 12/11/2024 4:[address] [facility] # Neutros 1.00(L) 1.56 - 6.13 K/ L 12/11/2024 4:[address] [facility] # Lymphs 0.46(L) 1.18 - 3.74 K/ L 12/11/2024 4:[address] [facility] # Monos 0.26 0.24 - 0.86 K/ L 12/11/2024 4:[address] [facility] # Eos <0.03(L) 0.04 - 0.36 K/ L 12/11/2024 4:[address] [facility] # Baso <0.03 0.01 - 0.08 K/ L 12/11/2024 4:[address] [facility] Immature Granulocytes-Re lative 0.00(L) 0.01 - 0.43 % 12/11/2024 4:[address] [facility] # IG <0.03 0.00 - 0.03 K/uL 12/11/2024 4:[address] [facility] Blood Venipuncture / Unknown 12/11/2024 3:36 AM EDT 12/11/2024 3:[address] [facility] - 12/11/2024 4:19 AM EDT [...] LAB BLOOD ORDERABLES Final Resul t [facility] [address] [place] [id number] [phone] * (ABNORMAL) Glucose, Nova Meter (12/10/2024 7:38 PM EDT) POC-GLUCOSE 201(H) 70 - 110 mg/dL 12/10/2024 7:[address] [facility] Comment: In the event of poor peripheral blood flow, venous or arterial blood should be used due to the potential of erroneous results. Notified Nurse RBV Director Content Marketing [id number] 12/10/2024 7:[address] [facility] Blood WHOLE BLOOD / Unknown 12/10/2024 7:38 PM EDT 12/10/2024 7:[address] [facility] - 12/10/2024 7:39 PM EDT Director Content Marketing ID is - [id number] us Venkatesh Stephen MD POINT OF CARE TEST ORDERABLES Fi nal Result Performing Organization Address [facility] Co de Phone Number [facility] [address] [phone] * (ABNORMAL) Glucose, Nova Meter (12/10/2024 6:32 PM EDT) POC-GLUCOSE 235(H) 70 - 110 mg/dL 12/10/2024 6:[address] [facility] Comment: In the event of poor peripheral blood flow, venous or arterial blood should be used due to the potential of erroneous results. Notified Nurse RBV Director Content Marketing [id number] 12/10/2024 6:[address] [facility] Blood WHOLE BLOOD / Unknown 12/10/2024 6:32 PM EDT 12/10/2024 6:[address] [facility] - 12/10/2024 6:34 PM EDT Director Content Marketing ID is - [id number] us Venkatesh Stephen MD POINT OF CARE TEST ORDERABLES Fi nal Result Performing Organization Address [facility] Co de Phone Number [facility] [address] [phone] * (ABNORMAL) Glucose, Nova Meter (12/10/2024 4:56 PM EDT) POC-GLUCOSE 195(H) 70 - 110 mg/dL 12/10/2024 4:[address] [facility] Comment: In the event of poor peripheral blood flow, venous or arterial blood should be used due to the potential of erroneous results. Notified Nurse RBV Director Content Marketing [id number] 12/10/2024 4:[address] [facility] Blood WHOLE BLOOD / Unknown 12/10/2024 4:56 PM EDT 12/10/2024 4:[address] [facility] - 12/10/2024 4:58 PM EDT Director Content Marketing ID is - [id number] us Venkatesh Stephen MD POINT OF CARE TEST ORDERABLES Fi nal Result Performing Organization Address City/State/[facility] Co de Phone Number [facility] [address] [phone] * US paracentesis (12/10/2024 11:37 AM EDT) [...] Ascites. ATTENDING PHYSICIAN: Dr. Haseeb Gil PHYSICIAN SIDE STITCHER: Sujit Blackman PA-C FINDINGS: After informed consent [...] Ascites. ATTENDING PHYSICIAN: Dr. Haseeb Gil PHYSICIAN SIDE STITCHER: Sujit Blackman PA-C FINDINGS: After informed consent [...] QTC Interval 484 ms GE MUSE P [place] 31 degrees GE MUSE R AXIS (MCT) -10 degrees GE MUSE T Wave [place] 37 degrees GE MUSE [place] Diagnosis Normal sinus rhythm Leftward axis Abnormal [...] 2.6 mg/dL 12/10/2024 11:[address] [facility] Blood Venipuncture / Unknown 12/10/2024 9:53 AM EDT 12/10/2024 10:39 AM EDT Deysi Foss MD LAB BLOOD ORDERABLES Final Resul t Performing Organization Address [facility] Phone Number [facility] [address] [phone] * ALT (SGPT) (12/10/2024 9:53 AM EDT) ALT 12 <=34 U/L 12/10/2024 11:[address] [facility] Comment: ALT2 reagent used for [...] ORDERABLES Final Resul t Performing Organization Address [facility] Phone Number [facility] [address] [phone] * (ABNORMAL) AST (SGOT) (12/10/2024 9:53 AM EDT) AST 39(H) 11 - 34 U/L 12/10/2024 11:[address] [facility] Comment: AST2 reagent used for testing does not contain P5P supplementation and therefore may miss AST elevations in patients with B6 deficiency. This population may be as high as 10% in the [place], with risk factors including malabsorption, drug interactions, and alcoholic hepatitis. [employer] has become aware of sulfasalazine and sulfapyridine [...] EDT 12/10/2024 10:39 AM EDT us Deysi oFss MD LAB BLOOD ORDERABLES Final Resul t [facility] [address] [phone] * XR chest AP portable (12/10/2024 9:10 AM EDT) Anatomical Region Laterality Modality Chest X-Ray 12/10/2024 9:40 AM EDT Impressions 12/10/2024 10:03 AM EDT Mild bibasilar atelectasis. Images reviewed, interpreted, and dictated by Dr. Der Keenan. Transcribed by Haven Hednerson PA-C. Narrative 12/10/2024 10:03 AM EDT PORTABLE [...] - 7.45 12/10/2024 6:[address] [facility] pCO2, Arterial 49(H) 35 - 45 mm Hg 12/10/2024 6:[address] [facility] pO2, Arterial 119(H) 80 - 100 mm Hg 12/10/2024 6:[address] [facility] HCO3, Arterial 24 20 - 26 mmol/L 12/10/2024 6:[address] [facility] Base Excess, Arterial -2.4(L) -2.0 - 2.0 mmol/L 12/10/2024 6:[address] [facility] O2 Sat, Arterial >99.2 95.0 - 100.0 % 12/10/2024 6:[address] [facility] Comment:notified at read-anny k verification CTO2 ARTERIAL 11.9 mmol/L 12/10/2024 6:[address] [facility] THB ARTERIAL 8.5(L) 12.0 - 18.0 g/dL 12/10/2024 6:51 AM [facility] SJ COLLECTION SITE Left Radial 12/10/2024 6:[address] [facility] Arterial Puncture Yes 12/10/2024 6:51 AM [facility] Blood Gas O2 Delivery Device Cannula 12/10/2024 6:51 AM [facility] Oxygen Flow Rate 4 12/11/19 25 6:51 AM [facility] Blood Gas PT Temperature C 37.0 12/10/2024 6:51 AM [facility] Sen's Test Acceptable 12/10/2024 6:[address] [facility] ABG Number of Draw Attempts 1 [facility] 12/10/2024 6:[address] [facility] Blood Gas Temperature Corrected Results No No 12/10/2024 6:[address] [facility] Blood, Arterial Collection / Unknown 12/10/2024 6:42 AM EDT 12/10/2024 6:51 AM EDT us Blanka Malagon MD LAB BLOOD ORDERABLES Final Re sult Performing Organization Address [facility]/ZIP Co de Phone Number [facility] [address] [phone] * (ABNORMAL) Glucose, Nova Meter (12/10/2024 5:52 AM EDT) POC-GLUCOSE 162(H) 70 - 110 mg/dL 12/10/2024 5:[address] [facility] Comment: In the event of poor peripheral blood flow, venous or arterial blood should be used due to the potential of erroneous results. Notified Nurse RBV Director Content Marketing [phone] 12/10/2024 5:[address] [facility] Blood WHOLE BLOOD / Unknown 12/10/2024 5:52 AM EDT 12/10/2024 5:[address] [facility] - 12/10/2024 5:53 AM EDT Director Content Marketing ID is - [id number] us Mary Carmen Mcfadden MD POINT OF CARE TEST ORDERABLES F inal Result Performing Organization Address [facility]/ZIP Co de Phone Number [facility] [address] [phone] * (ABNORMAL) Glucose, Nova Meter (12/09/2024 7:30 PM EDT) POC-GLUCOSE 158(H) 70 - 110 mg/dL 12/09/2024 7:[address] [facility] Comment: In the event of poor peripheral blood flow, venous or arterial blood should be used due to the potential of erroneous results. Notified Nurse RBV Director Content Marketing [phone] 12/09/2024 7:31 PM EDT [facility] Blood WHOLE BLOOD / Unknown 12/09/2024 7:30 PM EDT 12/09/2024 7:31 PM EDT [facility] - 12/09/2024 7:31 PM EDT Director Content Marketing ID is - [id number] Mary Carmen Mcfadden MD POINT OF CARE TEST ORDERABLES F inal Result Performing Organization Address [facility] Co de Phone Number [facility] [address] [phone] * (ABNORMAL) Glucose, Nova Meter (12/09/2024 4:23 PM EDT) [facility] POC-GLUCOSE 173(H) 70 - 110 mg/dL 12/09/2024 4:[address] [facility] Comment: In the event of poor peripheral blood flow, venous or arterial blood should be used due to the potential of erroneous results. Notified Nurse RBV Director Content Marketing [id number] 12/09/2024 4:[address] [facility] Blood WHOLE BLOOD / Unknown 12/09/2024 4:23 PM EDT 12/09/2024 4:24 PM EDT [facility] - 12/09/2024 4:24 PM EDT Director Content Marketing ID is - [id number] Mary Carmen Mcfadden MD POINT OF CARE TEST ORDERABLES F inal Result Performing Organization Address [facility] Co de Phone Number [facility] [address] [phone] * ECG 12 lead (12/09/2024 12:33 PM EDT) Pathologist [facility] VENTRICULAR RATE EKG/MIN 91 BPM GE MUSE ATRIAL RATE (MCT) 91 BPM GE MUSE [place] Interval 140 ms GE MUSE QRS-INTERVAL (MSEC) 88 ms GE MUSE QT Interval 386 ms GE MUSE QTC Interval 474 ms GE MUSE P [place] 44 degrees GE MUSE R AXIS (MCT) -3 degrees GE MUSE T Wave [place] 16 degrees GE MUSE [place] Diagnosis Normal sinus rhythm Minimal voltage criteria for LVH, may be normal variant Septal infarct (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 ([id number]) on 12/09/2024 6:05:19 PM GE MUSE 12/09/2024 12:3 3 PM EDT 12/09/2024 6:05 PM EDT Deysi Foss MD ECG ORDERABLES Final Result Performing Organization Address [facility]/ZIP Co de Phone Number GE MUSE * (ABNORMAL) Glucose, Nova Meter (12/09/2024 11:17 AM EDT) POC-GLUCOSE 173(H) 70 - 110 mg/dL 12/09/2024 11:[address] [facility] Comment: In the event of poor peripheral blood flow, venous or arterial blood should be used due to the potential of erroneous results. Notified Nurse RBV Director Content Marketing [id number] 12/09/2024 11:[address] [facility] Blood WHOLE BLOOD / Unknown 12/09/2024 11:17 AM EDT 12/09/2024 11:[address] [facility] - 12/09/2024 11:18 AM EDT Director Content Marketing ID is - [id number] Mary Carmen Mcfadden MD POINT OF CARE TEST ORDERABLES F inal Result Performing Organization Address [facility]/ZIP Co de Phone Number [facility] [address] [phone] * XR chest AP portable (12/09/2024 7:09 [...] - 7.45 12/09/2024 6:[address] [facility] pCO2, Arterial 51(H) 35 - 45 mm Hg 12/09/2024 6:[address] [facility] pO2, Arterial 157(H) 80 - 100 mm Hg 12/09/2024 6:[address] [facility] HCO3, Arterial 24 20 - 26 mmol/L 12/09/2024 6:[address] [facility] Base Excess, Arterial -2.6(L) -2.0 - 2.0 mmol/L 12/09/2024 6:[address] [facility] O2 Sat, Arterial >99.2 95.0 - 100.0 % 12/09/2024 6:[address] [facility] Comment:[id number] notified PAULINO COFFMAN RN at 12/09/2024 06:51 read-back verification CTO2 ARTERIAL 12.3 mmol/L 12/09/2024 6:[address] [facility] THB ARTERIAL 8.7(L) 12.0 - 18.0 g/dL 12/09/2024 6:[address] [facility] COLLECTION SITE Left Radial 12/09/2024 6:[address] [facility] Arterial Puncture Yes 12/09/2024 6:[address] [facility] Blood Gas O2 Delivery Device Cannula 12/09/2024 6:[address] [facility] Oxygen Flow Rate 4 12/10/19 6:[address] [facility] Blood Gas PT Temperature C 37.0 12/09/2024 6:[address] [facility] Sen's Test Acceptable 12/09/2024 6:[address] [facility] Critical Values Notification Critical Blood gas called to DAYANARA MILES . [place] [id number] and confirmed on 12/09/2024 06:51 12/09/2024 6:[address] [facility] ABG Number of Draw Attempts 1 12/09/2024 6:[address] [facility] FIO2 12/09/2024 6:[address] [facility] Blood Gas Temperature Corrected Results No No 12/09/2024 6:[address] [facility] Blood, Arterial ENTIRE LEFT UPPER ARM / Unknown 12/09/2024 6:37 AM EDT 12/09/2024 6:52 AM EDT us Blanka Malagon MD LAB BLOOD ORDERABLES Final Re sult [facility] [address] [phone] * (ABNORMAL) Glucose, Nova Meter (12/09/2024 5:45 AM EDT) POC-GLUCOSE 148(H) 70 - 110 mg/dL 12/09/2024 5:[address] [facility] Comment: In the event of poor peripheral blood flow, venous or arterial blood should be used due to the potential of erroneous results. Notified Nurse RBV Director Content Marketing [id number] 12/09/2024 5:[address] [facility] Blood WHOLE BLOOD / Unknown 12/09/2024 5:45 AM EDT 12/09/2024 5:[address] [facility] - 12/09/2024 5:46 AM EDT Director Content Marketing ID is - [id number] us Mary Carmen Mcfadden MD POINT OF CARE TEST ORDERABLES F inal Result [facility] [address] [phone] * (ABNORMAL) CBC - Hemogram (SJ-BKR) (12/09/2024 3:38 AM EDT) WBC 2.4(L) 4.0 - 10.0 K/ L 12/09/2024 3:[address] [facility] RBC 2.83(L) 3.93 - 5.22 M/ L 12/09/2024 3:[address] [facility] Hemoglobin 8.5(L) 11.2 - 15.7 GM/DL 12/09/2024 3:[address] [facility] Hematocrit 28.0(L) 34.1 - 44.9 % 12/09/2024 3:[address] [facility] MCV 99(H) 79 - 95 fL 12/09/2024 3:[address] [facility] MCH 30.0 25.6 - 32.2 pg 12/09/2024 3:[address] [facility] MCHC 30.4(L) 32.2 - 35.5 GM/DL 12/09/2024 3:[address] [facility] RDW 17.2(H) 11.7 - 14.4 % 12/09/2024 3:[address] [facility] Platelets 55(L) 140 - 375 K/CU MM 12/09/2024 3:[address] [facility] MPV 11.5 9.4 - 12.3 fL 12/09/2024 3:[address] [facility] Blood Venipuncture / Unknown 12/09/2024 3:38 AM EDT 12/09/2024 3:45 AM EDT us Mary Carmen Mcfadden MD LAB BLOOD ORDERABLES Final Resu lt [facility] [address] [phone] * (ABNORMAL) Basic Metabolic Panel (12/09/2024 3:38 AM EDT) Sodium 148(H) 136 - 145 meq/L 12/09/2024 4:[address] [facility] Potassium 3.6 3.4 - 5.1 meq/L 12/09/2024 4:[address] [facility] CO2 23 22 - 29 meq/L 12/09/2024 4:[address] [facility] Chloride 116(H) 98 - 112 meq/L 12/09/2024 4:[address] [facility] Glucose 146(H) 82 - 115 mg/dL 12/09/2024 4:[address] [facility] BUN 77.3(H) 9.8 - 20.1 mg/dL 12/09/2024 4:[address] [facility] Creatinine 2.82(H) 0.57 - 1.11 mg/dL 12/09/2024 4:[address] [facility] BUN/Creatinine 27(H) 8 - 20 12/09/2024 4:[address] [facility] Calcium 8.7 8.4 - 10.2 mg/dL 12/09/2024 4:[address] [facility] Anion Gap 13(H) 4 - 12 12/09/2024 4:[address] [facility] eGFR (mL/min/1.73m2) 18(L) >=60 mL/min/1.7 3m2 12/09/2024 4:[address] [facility] Osmolality Calc 320.0 mOsm/kg 4:[address] [facility] Blood Venipuncture / Unknown 12/09/2024 3:38 AM EDT 12/09/2024 3:45 AM EDT Mary Carmen Mcfadden MD LAB BLOOD ORDERABLES Final Resu lt [facility] [address] [phone] * (ABNORMAL) Glucose, Nova Meter (12/08/2024 8:08 PM EDT) POC-GLUCOSE 172(H) 70 - 110 mg/dL 12/08/2024 8:[address] [facility] Comment: In the event of poor peripheral blood flow, venous or arterial blood should be used due to the potential of erroneous results. Notified Nurse RBV Director Content Marketing [id number] 12/08/2024 8:[address] [facility] Blood WHOLE BLOOD / Unknown 12/08/2024 8:08 PM EDT 12/08/2024 8:[address] [facility] - 12/08/2024 8:08 PM EDT Director Content Marketing ID is - [id number] Mary Carmen Mcfadden MD POINT OF CARE TEST ORDERABLES F inal Result Performing Organization Address [facility]/State/ZIP Co de Phone Number [facility] [address] [place] [address], [facility] [phone] * (ABNORMAL) Glucose, Nova Meter (12/08/2024 3:34 PM EDT) POC-GLUCOSE 159(H) 70 - 110 mg/dL 12/08/2024 3:[address] [facility] Comment: In the event of poor peripheral blood flow, venous or arterial blood should be used due to the potential of erroneous results. Notified Nurse RBV Director Content Marketing [id number] 12/08/2024 3:[address] [facility] Blood WHOLE BLOOD / Unknown 12/08/2024 3:34 PM EDT 12/08/2024 3:36 PM EDT [facility] - 12/08/2024 3:36 PM EDT Director Content Marketing ID is - [id number] Mary Carmen Mcfadden MD POINT OF CARE TEST ORDERABLES F inal Result [facility] [address] [place] [address], [facility] [phone] * (ABNORMAL) Glucose, Nova Meter (12/08/2024 10:57 AM EDT) [facility] POC-GLUCOSE 191(H) 70 - 110 mg/dL 12/08/2024 10:[address] [facility] Comment: In the event of poor peripheral blood flow, venous or arterial blood should be used due to the potential of erroneous results. Protocols Followed Notified Nurse RBV Director Content Marketing [id number] 12/08/2024 10:[address] [facility] Blood WHOLE BLOOD / Unknown 12/08/2024 10:57 AM EDT 12/08/2024 10:59 AM EDT [facility] - 12/08/2024 10:59 AM EDT Director Content Marketing ID is - [id number] Mary Carmen Mcfadden MD POINT OF CARE TEST ORDERABLES F inal Result Performing Organization Address City/[facility]/ZIP Co de Phone Number [facility] [address] [place] [address], [facility] [phone] * ECG 12 lead (12/08/2024 10:55 AM EDT) Pathologist [facility] VENTRICULAR RATE EKG/MIN 92 BPM GE MUSE ATRIAL RATE (MCT) 92 BPM GE MUSE [place] Interval 138 ms GE MUSE QRS-INTERVAL (MSEC) 94 ms GE MUSE QT Interval 354 ms GE MUSE QTC Interval 437 ms GE MUSE P [place] 30 degrees GE MUSE R AXIS (MCT) -11 degrees GE MUSE T Wave [place] 37 degrees GE MUSE [place] Diagnosis Normal sinus rhythm Minimal voltage criteria [...] - 7.45 12/08/2024 7:[address] [facility] pCO2, Arterial 54(H) 35 - 45 mm Hg 12/08/2024 7:[address] [facility] pO2, Arterial 80 80 - 100 mm Hg 12/08/2024 7:[address] [facility] HCO3, Arterial 24 20 - 26 mmol/L 12/08/2024 7:[address] [facility] Base Excess, Arterial -2.9(L) -2.0 - 2.0 mmol/L 12/08/2024 7:[address] [facility] O2 Sat, Arterial 96.7 95.0 - 100.0 % 12/08/2024 7:[address] [facility] CTO2 ARTERIAL 11.8 mmol/L 12/08/2024 7:[address] [facility] THB ARTERIAL 8.8(L) 12.0 - 18.0 g/dL 12/08/2024 7:[address] [facility] COLLECTION SITE Right Brachial 12/08/2024 7:[address] [facility] Arterial Puncture Yes 12/08/2024 7:[address] [facility] Blood Gas O2 Delivery Device Cannula 12/08/2024 7:[address] [facility] Oxygen Flow Rate 4 12/09/19 7:[address] [facility] Blood Gas PT Temperature C 37.0 12/08/2024 7:[address] [facility] Sen's Test Not Applicable 12/09/19 7:[address] [facility] Critical Values Notification Critical Blood gas called to KNOWN CONDITION . Results acknowledged/r ead back to [id number] and confirmed on 12/08/2024 07:30 12/08/2024 7:[address] [facility] ABG Number of Draw Attempts 1 12/08/2024 7:[address] [facility] FIO2 12/08/2024 7:[address] [facility] Blood Gas Temperature Corrected Results No No 12/08/2024 7:[address] [facility] Blood, Arterial 12/08/2024 7 :13 AM EDT 12/08/2024 7:31 AM EDT Mary Carmen Mcfadden MD LAB BLOOD ORDERABLES Final Resu lt Performing Organization Address [facility] Co de Phone Number [facility] [address] [phone] * (ABNORMAL) Glucose, Nova Meter (12/08/2024 6:08 AM EDT) [facility] POC-GLUCOSE 136(H) 70 - 110 mg/dL 12/08/2024 6:[address] [facility] Comment: In the event of poor peripheral blood flow, venous or arterial blood should be used due to the potential of erroneous results. Protocols Followed Notified Nurse RBV Director Content Marketing [id number] 12/08/2024 6:[address] [facility] Blood WHOLE BLOOD / Unknown 12/08/2024 6:08 AM EDT 12/08/2024 6:[address] [facility] - 12/08/2024 6:09 AM EDT Director Content Marketing ID is - [id number] Mary Carmen Mcfadden MD POINT OF CARE TEST ORDERABLES F inal Result Performing Organization Address City/[facility]/ZIP Co de Phone Number [facility] [address] [phone] * (ABNORMAL) CBC - Hemogram (SJ-BKR) (12/08/2024 4:10 AM EDT) WBC 3.1(L) 4.0 - 10.0 K/ L 12/08/2024 4:[address] [facility] RBC 2.84(L) 3.93 - 5.22 M/ L 12/08/2024 4:[address] [facility] Hemoglobin 8.7(L) 11.2 - 15.7 GM/DL 12/08/2024 4:[address] [facility] Hematocrit 28.2(L) 34.1 - 44.9 % 12/08/2024 4:[address] [facility] MCV 99(H) 79 - 95 fL 12/08/2024 4:[address] [facility] MCH 30.6 25.6 - 32.2 pg 12/08/2024 4:[address] [facility] MCHC 30.9(L) 32.2 - 35.5 GM/DL 12/08/2024 4:[address] [facility] RDW 17.4(H) 11.7 - 14.4 % 12/08/2024 4:[address] [facility] Platelets 54(L) 140 - 375 K/CU MM 12/08/2024 4:[address] [facility] MPV 11.2 9.4 - 12.3 fL 12/08/2024 4:[address] [facility] Blood Venipuncture / Unknown 12/08/2024 4:10 AM EDT 12/08/2024 4:37 AM EDT us Mary Carmen Mcfadden MD LAB BLOOD ORDERABLES Final Resu lt Performing Organization Address [facility]/State/ZIP Co de Phone Number [facility] [address] [phone] * (ABNORMAL) Basic Metabolic Panel (12/08/2024 4:10 AM EDT) Sodium 149(H) 136 - 145 meq/L 12/08/2024 5:[address] [facility] Potassium 3.6 3.4 - 5.1 meq/L 12/08/2024 5:[address] [facility] CO2 23 22 - 29 meq/L 12/08/2024 5:[address] [facility] Chloride 116(H) 98 - 112 meq/L 12/08/2024 5:[address] [facility] Glucose 160(H) 82 - 115 mg/dL 12/08/2024 5:[address] [facility] BUN 76.4(H) 9.8 - 20.1 mg/dL 12/08/2024 5:[address] [facility] Creatinine 2.92(H) 0.57 - 1.11 mg/dL 12/08/2024 5:[address] [facility] BUN/Creatinine 26(H) 8 - 20 12/08/2024 5:[address] [facility] Calcium 8.7 8.4 - 10.2 mg/dL 12/08/2024 5:[address] [facility] Anion Gap 14(H) 4 - 12 12/08/2024 5:[address] [facility] eGFR (mL/min/1.73m2) 18(L) >=60 mL/min/1.7 3m2 12/08/2024 5:[address] [facility] Osmolality Calc 322.3 mOsm/kg 5:[address] [facility] Blood Venipuncture / Unknown 12/08/2024 4:10 AM EDT 12/08/2024 4:40 AM EDT us Mary Carmen Mcfadden MD LAB BLOOD ORDERABLES Final Resu lt [facility] [address] [phone] * (ABNORMAL) Glucose, Nova Meter (12/07/2024 7:54 PM EDT) POC-GLUCOSE 164(H) 70 - 110 mg/dL 12/07/2024 7:[address] [facility] Comment: In the event of poor peripheral blood flow, venous or arterial blood should be used due to the potential of erroneous results. Protocols Followed Notified Nurse RBV Director Content Marketing [id number] 12/07/2024 7:55 PM EDT [facility] Blood WHOLE BLOOD / Unknown 12/07/2024 7:54 PM EDT 12/07/2024 7:[address] [facility] - 12/07/2024 7:55 PM EDT Director Content Marketing ID is - [id number] us Mary Carmen Mcfadden MD POINT OF CARE TEST ORDERABLES F inal Result [facility] [address] [place] [address] * (ABNORMAL) ABG (12/07/2024 4:21 PM EDT) Pathologist [facility] pH, Arterial 7.29(L) 7.35 - 7.45 12/07/2024 4:[address] [facility] pCO2, Arterial 50(H) 35 - 45 mm Hg 12/07/2024 4:[address] [facility] pO2, Arterial 179(H) 80 - 100 mm Hg 12/07/2024 4:[address] [facility] HCO3, Arterial 24 20 - 26 mmol/L 12/07/2024 4:[address] [facility] Base Excess, Arterial -2.3(L) -2.0 - 2.0 mmol/L 12/07/2024 4:[address] [facility] O2 Sat, Arterial >100.0(H) 95.0 - 100.0 % 12/07/2024 4:[address] [facility] Comment:[id number] notified MORRIS LORENZ RN at 12/07/2024 16:42 read-back verification CTO2 ARTERIAL 12.0 mmol/L 12/07/2024 4:[address] [facility] THB ARTERIAL 8.4(L) 12.0 - 18.0 g/dL 12/07/2024 4:[address] [facility] PaO2/FIO2 calculated 359.0 12/07/2024 4:[address] [facility] COLLECTION SITE Right Brachial 12/07/2024 4:[address] [facility] Arterial Puncture Yes 12/07/2024 4:[address] [facility] Blood Gas O2 Delivery Device NIV 12/07/2024 4:[address] [facility] Blood Gas PT Temperature C 37.0 12/07/2024 4:[address] [facility] Sen's Test Not Applicable 12/08/19 4:[address] [facility] Critical Values Notification Critical Blood gas called to SEB LORENZ RN . Results acknowledged/r ead back to [id number] and confirmed on 12/07/2024 16:42 12/07/2024 4:[address] [facility] ABG Number of Draw Attempts 2 12/07/2024 4:[address] [facility] Set Rate 16.0 12/07/2024 4:[address] [facility] IPAP 10 12/07/2024 4:[address] [facility] EPAP 6 12/07/2024 4:[address] [facility] FIO2 50.0 12/07/2024 4:[address] [facility] Blood Gas Temperature Corrected Results No No 12/07/2024 4:[address] [facility] Blood, Arterial 12/07/2024 4 :21 PM EDT 12/07/2024 4:43 PM EDT us Blanka Malagon MD LAB BLOOD ORDERABLES Final Re sult [facility] [address] [place] [address], [facility] [phone] * (ABNORMAL) Glucose, Nova Meter (12/07/2024 3:39 PM EDT) POC-GLUCOSE 159(H) 70 - 110 mg/dL 12/07/2024 3:[address] [facility] Comment: In the event of poor peripheral blood flow, venous or arterial blood should be used due to the potential of erroneous results. Notified Nurse RBV Director Content Marketing [id number] 12/07/2024 3:[address] [facility] Blood WHOLE BLOOD / Unknown 12/07/2024 3:39 PM EDT 12/07/2024 3:[address] [facility] - 12/07/2024 3:41 PM EDT Director Content Marketing ID is - [id number] Mary Carmen Mcfadden MD POINT OF CARE TEST ORDERABLES F inal Result [facility] [address] [phone] * XR chest AP portable (12/07/2024 2:25 [...] Lizzie Myles. Transcribed by Sandra Ramsey PA-C. us Mary Carmen Mcfadden MD IMG DIAGNOSTIC IMAGING ORDERABL ES Final Result * (ABNORMAL) Blood gas, arterial (12/07/2024 2:02 PM EDT) pH, Arterial 7.28(L) 7.35 - 7.45 12/07/2024 3:[address] [facility] pCO2, Arterial 50(H) 35 - 45 mm Hg 12/07/2024 3:[address] [facility] pO2, Arterial 58(L) 80 - 100 mm Hg 12/07/2024 3:[address] [facility] HCO3, Arterial 24 20 - 26 mmol/L 12/07/2024 3:[address] [facility] Base Excess, Arterial -3.3(L) -2.0 - 2.0 mmol/L 12/07/2024 3:[address] [facility] O2 Sat, Arterial 91.3(L) 95.0 - 100.0 % 12/07/2024 3:[address] [facility] CTO2 ARTERIAL 11.2 mmol/L 12/07/2024 3:[address] [facility] THB ARTERIAL 8.9(L) 12.0 - 18.0 g/dL 12/07/2024 3:[address] [facility] COLLECTION SITE Right Radial 12/07/2024 3:[address] [facility] Arterial Puncture Yes 12/07/2024 3:[address] [facility] Blood Gas O2 Delivery Device Cannula 12/07/2024 3:[address] [facility] Oxygen Flow Rate 2 12/07/2024 3:[address] [facility] Blood Gas PT Temperature C 37.0 12/07/2024 3:[address] [facility] Sen's Test Unacceptable 12/07/2024 3:[address] [facility] Vent Mode Other 12/07/2024 3:[address] [facility] Critical Values Notification Critical Blood gas called to DR SHAHOUB . [place] [id number] and confirmed on 12/07/2024 14:14 12/07/2024 3:[address] [facility] ABG Number of Draw Attempts 1 12/07/2024 3:[address] [facility] Performed by: CD 12/07/2024 3:[address] [facility] FIO2 12/07/2024 3:[address] [facility] Blood Gas Temperature Corrected Results No No 12/07/2024 3:[address] [facility] Blood, Arterial 12/07/2024 2 :02 PM EDT 12/07/2024 2:14 PM EDT Mary Carmen Mcfadden MD LAB BLOOD ORDERABLES Final Resu lt Performing Organization Address [facility]/ZIP Co de Phone Number [facility] [address] [phone] * (ABNORMAL) Glucose, Nova Meter (12/07/2024 10:54 AM EDT) [facility] POC-GLUCOSE 146(H) 70 - 110 mg/dL 12/07/2024 10:[address] [facility] Comment: In the event of poor peripheral blood flow, venous or arterial blood should be used due to the potential of erroneous results. Notified Nurse [facility] Director Content Marketing [phone] 12/07/2024 10:[address] [facility] Blood WHOLE BLOOD / Unknown 12/07/2024 10:54 AM EDT 12/07/2024 10:[address] [facility] - 12/07/2024 10:56 AM EDT Director Content Marketing ID is - [id number] Mary Carmen Mcfadden MD POINT OF CARE TEST ORDERABLES F inal Result Performing Organization Address [facility]/ZIP Co de Phone Number [facility] [address] [phone] * (ABNORMAL) Blood gas, arterial (12/07/2024 10:36 AM EDT) pH, Arterial 7.26(L) 7.35 - 7.45 12/07/2024 1:[address] [facility] pCO2, Arterial 50(H) 35 - 45 mm Hg 12/07/2024 1:[address] [facility] pO2, Arterial 43(LL) 80 - 100 mm Hg 12/07/2024 1:[address] [facility] HCO3, Arterial 22 20 - 26 mmol/L 12/07/2024 1:[address] [facility] Base Excess, Arterial -4.7(L) -2.0 - 2.0 mmol/L 12/07/2024 1:[address] [facility] O2 Sat, Arterial 80.4(L) 95.0 - 100.0 % 12/07/2024 1:[address] [facility] Comment:[id number] notified TRAY LORENZ RN at 12/07/2024 10:51 read-back verification CTO2 ARTERIAL 9.4 mmol/L 12/07/2024 1:[address] [facility] [facility] THB ARTERIAL 8.5(L) 12.0 - 18.0 g/dL 12/07/2024 1:[address] [facility] PaO2/FIO2 calculated 203.0 12/07/2024 1:50 PM [facility] SJ COLLECTION SITE Right Radial 12/07/2024 1:[address] [facility] Arterial Puncture Yes 12/07/2024 1:[address] [facility] Blood Gas PT Temperature C 37.0 12/07/2024 1:[address] [facility] Sen's Test Acceptable 12/07/2024 1:[address] [facility] Critical Values Notification Critical Blood gas called to TRAY LORENZ RN . [place] [id number] and confirmed on 12/07/2024 10:51 12/07/2024 1:50 PM [facility] ABG Number of Draw Attempts 1 12/07/2024 1:[address] [facility] FIO2 21.0 12/07/2024 1:[address] [facility] Blood Gas Temperature Corrected Results No No 12/07/2024 1:[address] [facility] Blood, Arterial 12/07/2024 1 0:36 AM EDT 12/07/2024 1:50 PM EDT Mary Carmen Mcfadden MD LAB BLOOD ORDERABLES Final Resu lt Performing Organization Address [facility] Co de Phone Number [facility] [address] [phone] * ECG 12 lead (12/07/2024 10:29 AM EDT) VENTRICULAR RATE EKG/MIN 91 BPM GE MUSE ATRIAL RATE (MCT) 91 BPM GE MUSE [place] Interval 142 ms GE MUSE QRS-INTERVAL (MSEC) 88 ms GE MUSE QT Interval 376 ms GE MUSE QTC Interval 462 ms GE MUSE P [place] 39 degrees GE MUSE R AXIS (MCT) -3 degrees GE MUSE T Wave [place] 4 degrees GE MUSE [place] Diagnosis Normal sinus rhythm Nonspecific T wave abnormality Abnormal ECG When compared with ECG of 06-DEC-2024 13:16, No significant change was found Confirmed by DEYSI FOSS M.D. ([id number]) on 12/07/2024 7:36:17 PM GE MUSE 12/07/2024 10:2 9 AM EDT 12/07/2024 7:36 PM EDT Mary Carmen Mcfadden MD ECG ORDERABLES Final Result Performing Organization Address [facility] Phone Number GE MUSE * (ABNORMAL) Glucose, Nova Meter (12/07/2024 5:51 AM EDT) POC-GLUCOSE 159(H) 70 - 110 mg/dL 12/07/2024 5:[address] [facility] Comment: In the event of poor peripheral blood flow, venous or arterial blood should be used due to the potential of erroneous results. Notified Nurse RBV Director Content Marketing [phone] 12/07/2024 5:[address] [facility] Blood WHOLE BLOOD / Unknown 12/07/2024 5:51 AM EDT 12/07/2024 5:[address] [facility] - 12/07/2024 5:52 AM EDT Director Content Marketing ID is - [id number] Mary Carmen Mcfadden MD POINT OF CARE TEST ORDERABLES F inal Result [facility] [address] [phone] * Erythropoietin(SENDOUT) (12/07/2024 3:59 AM EDT) Erythropoietin 19 4 - 27 mU/mL 12/08/2024 2:30 PM EDT [facility] Comment: INTERPRETIVE INFORMATION: Erythropoietin Normal serum concentrations [...] may benefit from therapy with recombinant EPO ([facility] [id number]). Performed By: [employer] [address] [place] [address] [place] [address] Optometrist: Lalo Mortensen MD, PhD CLIA Number: [id number] Blood Venipuncture / Unknown 12/07/2024 3:59 AM EDT 12/07/2024 4:11 AM EDT us Ariel Mills MD LAB BLOOD ORDERABLES Final Res ult Performing Organization Address City/[facility]/ZIP Co de Phone Number [facility] [employer] [address] [phone] * Ammonia (12/07/2024 3:59 AM EDT) Ammonia 44 18 - 72 mol/L 12/07/2024 4:[address] [facility] Blood Venipuncture / Unknown 12/07/2024 3:59 AM EDT 12/07/2024 4:22 AM EDT us Timothy Bai MD LAB BLOOD ORDERABLES Final Result Performing Organization Address City/[facility]/ZIP Co de Phone Number [facility] [address] [phone] * (ABNORMAL) Comprehensive Metabolic Panel (12/07/2024 3:59 AM EDT) Sodium 146(H) 136 - 145 meq/L 12/07/2024 4:[address] [facility] Potassium 3.8 3.4 - 5.1 meq/L 12/07/2024 4:[address] [facility] Chloride 118(H) 98 - 112 meq/L 12/07/2024 4:[address] [facility] CO2 20(L) 22 - 29 meq/L 12/07/2024 4:[address] [facility] Calcium 8.4 8.4 - 10.2 mg/dL 12/07/2024 4:[address] [facility] Glucose 166(H) 82 - 115 mg/dL 12/07/2024 4:[address] [facility] BUN 72.9(H) 9.8 - 20.1 mg/dL 12/07/2024 4:52 AM [facility] Creatinine 3.13(H) 0.57 - 1.11 mg/dL 12/07/2024 4:52 AM [facility] BUN/Creatinine 23(H) 8 - 20 12/07/2024 4:52 AM [facility] eGFR (mL/min/1.73m2) 16(L) >=60 mL/min/1. 73m2 12/07/2024 4:52 AM [facility] Albumin 4.1 3.5 - 5.0 g/dL 12/07/2024 4:52 AM [facility] Alkaline Phosphatase 48 40 - 150 U/L 12/07/2024 4:52 AM [facility] ALT 9 <=34 U/L 12/07/2024 4:52 AM [facility] Comment: ALT2 reagent used for testing does not contain P5P supplementation and therefore may miss ALT elevations in patients with B6 deficiency. This population may be as high as 10% in the [place], with risk factors including malabsorption, drug interactions, and alcoholic hepatitis. AST 24 11 - 34 U/L 12/07/2024 4:52 AM [facility] Comment: AST2 reagent used for testing does not contain P5P supplementation and therefore may miss AST elevations in patients with B6 deficiency. This population may be as high as 10% in the [place], with risk factors including malabsorption, drug interactions, and alcoholic hepatitis. Total Bilirubin 0.9 0.2 - 1.2 mg/dL 12/07/2024 4:52 AM [facility] Protein, Total 6.4 6.4 - 8.3 g/dL 12/07/2024 4:52 AM [facility] Globulin 2.3(L) 2.5 - 4.1 g/dL 12/07/2024 4:52 AM [facility] Anion Gap 12 4 - 12 12/07/2024 4:52 AM [facility] A/G Ratio 1.8 0.7 - 1.9 12/07/2024 4:52 AM [facility] Osmolality Calc 315.8 mOsm/kg 4:[address] [facility] Blood Venipuncture / Unknown 12/07/2024 3:59 AM EDT 12/07/2024 4:09 AM EDT Timothy Bai MD LAB BLOOD ORDERABLES Final Result Performing Organization Address [facility]/ZIP Co de Phone Number [facility] [address] [phone] * Magnesium (12/07/2024 3:59 AM EDT) Magnesium 2.4 1.6 - 2.6 mg/dL 12/07/2024 4:[address] [facility] Blood Venipuncture / Unknown 12/07/2024 3:59 AM EDT 12/07/2024 4:09 AM EDT Timothy Bai MD LAB BLOOD ORDERABLES Final Result Performing Organization Address City/[facility] Co de Phone Number [facility] [address] [phone] * (ABNORMAL) CBC - Hemogram (SJ-BKR) (12/07/2024 3:59 AM EDT) WBC 3.5(L) 4.0 - 10.0 K/ L 12/07/2024 4:[address] [facility] RBC 2.58(L) 3.93 - 5.22 M/ L 12/07/2024 4:[address] [facility] Hemoglobin 7.9(L) 11.2 - 15.7 GM/DL 12/07/2024 4:[address] [facility] Hematocrit 25.6(L) 34.1 - 44.9 % 12/07/2024 4:[address] [facility] MCV 99(H) 79 - 95 fL 12/07/2024 4:[address] [facility] MCH 30.6 25.6 - 32.2 pg 12/07/2024 4:[address] [facility] MCHC 30.9(L) 32.2 - 35.5 GM/DL 12/07/2024 4:[address] [facility] RDW 17.4(H) 11.7 - 14.4 % 12/07/2024 4:[address] [facility] Platelets 54(L) 140 - 375 K/CU MM 12/07/2024 4:[address] [facility] MPV 12.2 9.4 - 12.3 fL 12/07/2024 4:[address] [facility] Blood Venipuncture / Unknown 12/07/2024 3:59 AM EDT 12/07/2024 4:09 AM EDT us Timothy Bai MD LAB BLOOD ORDERABLES Final Result Performing Organization Address [facility] Co de Phone Number [facility] [address] [phone] * (ABNORMAL) Glucose, Nova Meter (12/06/2024 7:26 PM EDT) [facility] POC-GLUCOSE 170(H) 70 - 110 mg/dL 12/06/2024 7:[address] [facility] Comment: In the event of poor peripheral blood flow, venous or arterial blood should be used due to the potential of erroneous results. Notified Nurse RBV Director Content Marketing [id number] 12/06/2024 7:[address] [facility] Blood WHOLE BLOOD / Unknown 12/06/2024 7:26 PM EDT 12/06/2024 7:[address] [facility] - 12/06/2024 7:27 PM EDT Director Content Marketing ID is - [id number] us Mary Carmen Mcfadden MD POINT OF CARE TEST ORDERABLES F inal Result Performing Organization Address City/[facility]/ZIP Co de Phone Number [facility] [address] [phone] * (ABNORMAL) Glucose, Nova Meter (12/06/2024 4:06 PM EDT) [facility] POC-GLUCOSE 134(H) 70 - 110 mg/dL 12/06/2024 4:[address] [facility] Comment: In the event of poor peripheral blood flow, venous or arterial blood should be used due to the potential of erroneous results. Notified Nurse RBV Director Content Marketing [id number] 12/06/2024 4:[address] [facility] Blood WHOLE BLOOD / Unknown 12/06/2024 4:06 PM EDT 12/06/2024 4:[address] [facility] - 12/06/2024 4:07 PM EDT Director Content Marketing ID is - [id number] us Mary Carmen Mcfadden MD POINT OF CARE TEST ORDERABLES F inal Result Performing Organization Address City/[facility]/ZIP Co de Phone Number [facility] [address] [phone] * ECG 12 lead (12/06/2024 1:16 PM EDT) [facility] VENTRICULAR RATE EKG/MIN 90 BPM GE MUSE ATRIAL RATE (MCT) 90 BPM GE MUSE IL Interval 142 ms GE MUSE QRS-INTERVAL (MSEC) 92 ms GE MUSE QT Interval 378 ms GE MUSE QTC Interval 462 ms GE MUSE P [place] 28 degrees GE MUSE R AXIS (MCT) -4 degrees GE MUSE T Wave [place] 21 degrees GE MUSE [place] Diagnosis Normal sinus rhythm Septal infarct , age undetermined Confirmed by DEYSI FOSS M.D. ([id number]) on 12/07/2024 7:40:21 PM GE MUSE 12/06/2024 1:16 PM EDT 12/07/2024 7:40 PM EDT us Deysi Foss MD ECG ORDERABLES Final Result Performing Organization Address City/[facility]/ZIP Co de Phone Number GE MUSE * (ABNORMAL) Glucose, Nova Meter (12/06/2024 10:36 AM EDT) POC-GLUCOSE 150(H) 70 - 110 mg/dL 12/06/2024 10:[address] [facility] Comment: In the event of poor peripheral blood flow, venous or arterial blood should be used due to the potential of erroneous results. Notified Nurse RBV Director Content Marketing [id number] 12/06/2024 10:[address] [facility] Blood WHOLE BLOOD / Unknown 12/06/2024 10:36 AM EDT 12/06/2024 10:[address] [facility] - 12/06/2024 10:37 AM EDT Director Content Marketing ID is - [id number] Mary Carmen Mcfadden MD POINT OF CARE TEST ORDERABLES F inal Result Performing Organization Address City/State/[facility] Co de Phone Number [facility] [address] [phone] * XR chest AP portable (12/06/2024 7:34 [...] 110 mg/dL 12/06/2024 5:[address] [facility] Comment: In the event of poor peripheral blood flow, venous or arterial blood should be used due to the potential of erroneous results. Notified Nurse RBV Director Content Marketing [id number] 12/06/2024 5:[address] [facility] Blood WHOLE BLOOD / Unknown 12/06/2024 5:26 AM EDT 12/06/2024 5:[address] [facility] - 12/06/2024 5:27 AM EDT Director Content Marketing ID is - [id number] us Timothy Bai MD POINT OF CARE TEST ORDERAB LES Final Result Performing Organization Address City/[facility]/ZIP Co de Phone Number [facility] [address] [phone] * (ABNORMAL) Ferritin (12/06/2024 3:13 AM EDT) Ferritin 256.82(H) 4.63 - 204.00 ng/mL 12/06/2024 8:[address] [facility] Blood Venipuncture / Unknown 12/06/2024 3:13 AM EDT 12/06/2024 3:50 AM EDT us Ariel Mills MD LAB BLOOD ORDERABLES Final Res ult Performing Organization Address [facility]/ZIP Co de Phone Number [facility] [address] [phone] * Ammonia (12/06/2024 3:13 AM EDT) Ammonia 47 18 - 72 mol/L 12/06/2024 4:[address] [facility] Blood Venipuncture / Unknown 12/06/2024 3:13 AM EDT 12/06/2024 3:51 AM EDT us Timothy Bai MD LAB BLOOD ORDERABLES Final Result [facility] [address] [phone] * (ABNORMAL) Comprehensive Metabolic Panel (12/06/2024 3:13 AM EDT) Sodium 146(H) 136 - 145 meq/L 12/06/2024 4:[address] [facility] Potassium 3.9 3.4 - 5.1 meq/L 12/06/2024 4:[address] [facility] Chloride 116(H) 98 - 112 meq/L 12/06/2024 4:[address] [facility] CO2 20(L) 22 - 29 meq/L 12/06/2024 4:[address] [facility] Calcium 8.6 8.4 - 10.2 mg/dL 12/06/2024 4:[address] [facility] Glucose 149(H) 82 - 115 mg/dL 12/06/2024 4:[address] [facility] BUN 63.3(H) 9.8 - 20.1 mg/dL 12/06/2024 4:[address] [facility] Creatinine 3.37(H) 0.57 - 1.11 mg/dL 12/06/2024 4:[address] [facility] BUN/Creatinine 19 8 - 20 12/06/2024 4:[address] [facility] eGFR (mL/min/1.73m2) 15(L) >=60 mL/min/1. 73m2 12/06/2024 4:[address] [facility] Albumin 4.6 3.5 - 5.0 g/dL 12/06/2024 4:[address] [facility] Alkaline Phosphatase 47 40 - 150 U/L 12/06/2024 4:[address] [facility] ALT 11 <=34 U/L 12/06/2024 4:[address] [facility] Comment: ALT2 reagent used for testing does not contain P5P supplementation and therefore may miss ALT elevations in patients with B6 deficiency. This population may be as high as 10% in the [place], with risk factors including malabsorption, drug interactions, and alcoholic hepatitis. AST 21 11 - 34 U/L 12/06/2024 4:[address] [facility] Comment: AST2 reagent used for testing does not contain P5P supplementation and therefore may miss AST elevations in patients with B6 deficiency. This population may be as high as 10% in the [place], with risk factors including malabsorption, drug interactions, and alcoholic hepatitis. Total Bilirubin 1.2 0.2 - 1.2 mg/dL 12/06/2024 4:[address] [facility] Protein, Total 7.0 6.4 - 8.3 g/dL 12/06/2024 4:[address] [facility] Globulin 2.4(L) 2.5 - 4.1 g/dL 12/06/2024 4:[address] [facility] Anion Gap 14(H) 4 - 12 12/06/2024 4:[address] [facility] A/G Ratio 1.9 0.7 - 1.9 12/06/2024 4:[address] [facility] Osmolality Calc 311.4 mOsm/kg 4:[address] [facility] Blood Venipuncture / Unknown 12/06/2024 3:13 AM EDT 12/06/2024 3:50 AM EDT us Timothy Bai MD LAB BLOOD ORDERABLES Final Result [facility] [address] [phone] * Magnesium (12/06/2024 3:13 AM EDT) Magnesium 2.4 1.6 - 2.6 mg/dL 12/06/2024 4:[address] [facility] Blood Venipuncture / Unknown 12/06/2024 3:13 AM EDT 12/06/2024 3:50 AM EDT us Timothy Bai MD LAB BLOOD ORDERABLES Final Result [facility] [address] [phone] * (ABNORMAL) CBC - Hemogram (SJ-BKR) (12/06/2024 3:13 AM EDT) WBC 7.0 4.0 - 10.0 K/ L 12/06/2024 4:[address] [facility] RBC 2.83(L) 3.93 - 5.22 M/ L 12/06/2024 4:[address] [facility] Hemoglobin 8.7(L) 11.2 - 15.7 GM/DL 12/06/2024 4:[address] [facility] Hematocrit 28.2(L) 34.1 - 44.9 % 12/06/2024 4:[address] [facility] MCV 100(H) 79 - 95 fL 12/06/2024 4:[address] [facility] MCH 30.7 25.6 - 32.2 pg 12/06/2024 4:[address] [facility] MCHC 30.9(L) 32.2 - 35.5 GM/DL 12/06/2024 4:[address] [facility] RDW 17.2(H) 11.7 - 14.4 % 12/06/2024 4:[address] [facility] Platelets 80(L) 140 - 375 K/CU MM 12/06/2024 4:[address] [facility] MPV 11.7 9.4 - 12.3 fL 12/06/2024 4:[address] [facility] Blood Venipuncture / Unknown 12/06/2024 3:13 AM EDT 12/06/2024 3:53 AM EDT Timothy Bai MD LAB BLOOD ORDERABLES Final Result Performing Organization Address City/[facility]/ZIP Co de Phone Number [facility] [address] [phone] * (ABNORMAL) Glucose, Nova Meter (12/05/2024 7:21 PM EDT) POC-GLUCOSE 145(H) 70 - 110 mg/dL 12/05/2024 7:[address] [facility] Comment: In the event of poor peripheral blood flow, venous or arterial blood should be used due to the potential of erroneous results. Notified Nurse RBV Director Content Marketing [id number] 12/05/2024 7:[address] [facility] Blood WHOLE BLOOD / Unknown 12/05/2024 7:21 PM EDT 12/05/2024 7:[address] [facility] - 12/05/2024 7:22 PM EDT Director Content Marketing ID is - [id number] Timothy Bai MD POINT OF CARE TEST ORDERAB LES Final Result Performing Organization Address [facility] Co de Phone Number [facility] [address] [phone] * (ABNORMAL) Glucose, Nova Meter (12/05/2024 5:01 PM EDT) POC-GLUCOSE 140(H) 70 - 110 mg/dL 12/05/2024 5:[address] [facility] Comment: In the event of poor peripheral blood flow, venous or arterial blood should be used due to the potential of erroneous results. Notified Nurse RBV Director Content Marketing [id number] 12/05/2024 5:[address] [facility] Blood WHOLE BLOOD / Unknown 12/05/2024 5:01 PM EDT 12/05/2024 5:[address] [facility] - 12/05/2024 5:02 PM EDT Director Content Marketing ID is - [id number] us Timothy Bai MD POINT OF CARE TEST ORDERAB LES Final Result Performing Organization Address City/[facility]/ZIP Co de Phone Number [facility] [address] [phone] * (ABNORMAL) Hemoglobin (12/05/2024 3:36 PM EDT) Hemoglobin 8.1(L) 11.2 - 15.7 GM/DL 12/05/2024 3:[address] [facility] Blood Venipuncture / Unknown 12/05/2024 3:36 PM EDT 12/05/2024 3:47 PM EDT us Timothy Bai MD LAB BLOOD ORDERABLES Final Result Performing Organization Address [facility] Co de Phone Number [facility] [address] [phone] * (ABNORMAL) Glucose, Nova Meter (12/05/2024 10:23 AM EDT) POC-GLUCOSE 141(H) 70 - 110 mg/dL 12/05/2024 10:[address] [facility] Comment: In the event of poor peripheral blood flow, venous or arterial blood should be used due to the potential of erroneous results. Notified Nurse RBV Protocols Followed Director Content Marketing [id number] 12/05/2024 10:[address] [facility] Blood WHOLE BLOOD / Unknown 12/05/2024 10:23 AM EDT 12/05/2024 10:[address] [facility] - 12/05/2024 10:24 AM EDT Director Content Marketing ID is - [id number] us Timothy Bai MD POINT OF CARE TEST ORDERAB LES Final Result Performing Organization Address [facility] Co de Phone Number [facility] [address] [phone] * (ABNORMAL) Glucose, Nova Meter (12/05/2024 8:10 AM EDT) POC-GLUCOSE 123(H) 70 - 110 mg/dL 12/05/2024 8:[address] [facility] Comment: In the event of poor peripheral blood flow, venous or arterial blood should be used due to the potential of erroneous results. Notified Nurse RBV Director Content Marketing [id number] 12/05/2024 8:[address] [facility] Blood WHOLE BLOOD / Unknown 12/05/2024 8:10 AM EDT 12/05/2024 8:[address] [facility] - 12/05/2024 8:27 AM EDT Director Content Marketing ID is - [id number] Timothy Bai MD POINT OF CARE TEST ORDERAB LES Final Result Performing Organization Address [facility]/ZIP Co de Phone Number [facility] [address] [phone] * (ABNORMAL) Hemoglobin (12/05/2024 8:00 AM EDT) Hemoglobin 8.2(L) 11.2 - 15.7 GM/DL 12/05/2024 8:[address] [facility] Blood Venipuncture / Unknown 12/05/2024 8:00 AM EDT 12/05/2024 8:06 AM EDT Timothy Bai MD LAB BLOOD ORDERABLES Final Result [facility] [address] [phone] * Ammonia (12/05/2024 3:20 AM EDT) Ammonia 41 18 - 72 mol/L 12/05/2024 4:[address] [facility] Blood Venipuncture / Unknown 12/05/2024 3:20 AM EDT 12/05/2024 3:24 AM EDT us Timothy Bai MD LAB BLOOD ORDERABLES Final Result [facility] [address] [place] [id number] [phone] * (ABNORMAL) Comprehensive Metabolic Panel (12/05/2024 3:20 AM EDT) Sodium 146(H) 136 - 145 meq/L 12/05/2024 4:[address] [facility] Potassium 3.6 3.4 - 5.1 meq/L 12/05/2024 4:[address] [facility] Chloride 117(H) 98 - 112 meq/L 12/05/2024 4:[address] [facility] CO2 20(L) 22 - 29 meq/L 12/05/2024 4:[address] [facility] Calcium 8.3(L) 8.4 - 10.2 mg/dL 12/05/2024 4:[address] [facility] Glucose 148(H) 82 - 115 mg/dL 12/05/2024 4:[address] [facility] BUN 59.4(H) 9.8 - 20.1 mg/dL 12/05/2024 4:[address] [facility] Creatinine 3.14(H) 0.57 - 1.11 mg/dL 12/05/2024 4:[address] [facility] BUN/Creatinine 19 8 - 20 12/05/2024 4:[address] [facility] eGFR (mL/min/1.73m2) 16(L) >=60 mL/min/1. 73m2 12/05/2024 4:[address] [facility] Albumin 4.3 3.5 - 5.0 g/dL 12/05/2024 4:[address] [facility] Alkaline Phosphatase 44 40 - 150 U/L 12/05/2024 4:[address] [facility] ALT 8 <=34 U/L 12/05/2024 4:[address] [facility] Comment: ALT2 reagent used for testing does not contain P5P supplementation and therefore may miss ALT elevations in patients with B6 deficiency. This population may be as high as 10% in the [place], with risk factors including malabsorption, drug interactions, and alcoholic hepatitis. AST 23 11 - 34 U/L 12/05/2024 4:[address] [facility] Comment: AST2 reagent used for testing does not contain P5P supplementation and therefore may miss AST elevations in patients with B6 deficiency. This population may be as high as 10% in the [place], with risk factors including malabsorption, drug interactions, and alcoholic hepatitis. Total Bilirubin 1.2 0.2 - 1.2 mg/dL 12/05/2024 4:[address] [facility] Protein, Total 6.4 6.4 - 8.3 g/dL 12/05/2024 4:[address] [facility] Globulin 2.1(L) 2.5 - 4.1 g/dL 12/05/2024 4:[address] [facility] Anion Gap 13(H) 4 - 12 12/05/2024 4:[address] [facility] A/G Ratio 2.0(H) 0.7 - 1.9 12/05/2024 4:[address] [facility] Osmolality Calc 310.0 mOsm/kg 4:[address] [facility] Blood Venipuncture / Unknown 12/05/2024 3:20 AM EDT 12/05/2024 3:24 AM EDT us Timothy Bai MD LAB BLOOD ORDERABLES Final Result [facility] [address] [phone] * Magnesium (12/05/2024 3:20 AM EDT) Magnesium 2.3 1.6 - 2.6 mg/dL 12/05/2024 4:11 AM EDT [facility] Blood Venipuncture / Unknown 12/05/2024 3:20 AM EDT 12/05/2024 3:24 AM EDT us Timothy Bai MD LAB BLOOD ORDERABLES Final Result [facility] [address] [phone] * (ABNORMAL) CBC - Hemogram (SJ-BKR) (12/05/2024 3:20 AM EDT) WBC 4.2 4.0 - 10.0 K/ L 12/05/2024 3:[address] [facility] RBC 2.64(L) 3.93 - 5.22 M/ L 12/05/2024 3:[address] [facility] Hemoglobin 8.2(L) 11.2 - 15.7 GM/DL 12/05/2024 3:[address] [facility] Hematocrit 25.9(L) 34.1 - 44.9 % 12/05/2024 3:[address] [facility] MCV 98(H) 79 - 95 fL 12/05/2024 3:[address] [facility] MCH 31.1 25.6 - 32.2 pg 12/05/2024 3:[address] [facility] MCHC 31.7(L) 32.2 - 35.5 GM/DL 12/05/2024 3:[address] [facility] RDW 17.1(H) 11.7 - 14.4 % 12/05/2024 3:[address] [facility] Platelets 60(L) 140 - 375 K/CU MM 12/05/2024 3:[address] [facility] MPV 11.3 9.4 - 12.3 fL 12/05/2024 3:[address] [facility] Blood Venipuncture / Unknown 12/05/2024 3:20 AM EDT 12/05/2024 3:24 AM EDT Timothy Bai MD LAB BLOOD ORDERABLES Final Result [facility] [address] [phone] * (ABNORMAL) Hemoglobin (12/04/2024 11:54 PM EDT) [facility] Hemoglobin 8.7(L) 11.2 - 15.7 GM/DL 12/05/2024 12:[address] [facility] Blood Venipuncture / Unknown 12/04/2024 11:54 PM EDT 12/04/2024 11:59 PM EDT Timothy Bai MD LAB BLOOD ORDERABLES Final Result Performing Organization Address [facility] Co de Phone Number [facility] [address] [phone] * (ABNORMAL) Glucose, Nova Meter (12/04/2024 10:20 PM EDT) [facility] POC-GLUCOSE 147(H) 70 - 110 mg/dL 12/04/2024 10:[address] [facility] Comment: In the event of poor peripheral blood flow, venous or arterial blood should be used due to the potential of erroneous results. Protocols Followed Director Content Marketing [id number] 12/04/2024 10:[address] [facility] Blood WHOLE BLOOD / Unknown 12/04/2024 10:20 PM EDT 12/04/2024 10:[address] [facility] - 12/04/2024 10:22 PM EDT Director Content Marketing ID is - [id number] us Timothy Bai MD POINT OF CARE TEST ORDERAB LES Final Result Performing Organization Address [facility] Co de Phone Number [facility] [address] [phone] * ECG 12 lead (12/04/2024 8:08 PM EDT) SYSTOLIC BLOOD PRESSURE (MCT) 133 mmHg GE MUSE DIASTOLIC BLOOD PRESSURE (MCT) 61 mmHg GE MUSE VENTRICULAR RATE EKG/MIN 85 BPM GE MUSE ATRIAL RATE (MCT) 85 BPM GE MUSE IL Interval 140 ms GE MUSE QRS-INTERVAL (MSEC) 94 ms GE MUSE QT Interval 426 ms GE MUSE QTC Interval 506 ms GE MUSE P [place] 44 degrees GE MUSE R AXIS (MCT) 27 degrees GE MUSE T Wave [place] -27 degrees GE MUSE [place] Diagnosis Normal sinus rhythm Nonspecific T wave abnormality Abnormal ECG Confirmed by DEYSI FOSS M.D. ([id number]) on 12/05/2024 1:52:09 PM GE MUSE 12/04/2024 8:08 PM EDT 12/05/2024 1:52 PM EDT us Timothy Bai MD ECG ORDERABLES Final Resu lt Performing Organization Address City/[facility]/ZIP Co de Phone Number GE MUSE * (ABNORMAL) Glucose, Nova Meter (12/04/2024 4:50 PM EDT) POC-GLUCOSE 137(H) 70 - 110 mg/dL 12/04/2024 4:[address] [facility] Comment: In the event of poor peripheral blood flow, venous or arterial blood should be used due to the potential of erroneous results. Protocols Followed Director Content Marketing [id number] 12/04/2024 4:[address] [facility] Blood WHOLE BLOOD / Unknown 12/04/2024 4:50 PM EDT 12/04/2024 4:[address] [facility] - 12/04/2024 4:51 PM EDT Director Content Marketing ID is - [id number] us Timothy Bai MD POINT OF CARE TEST ORDERAB LES Final Result [facility] [address] [phone] * (ABNORMAL) Hemoglobin (12/04/2024 4:27 PM EDT) Hemoglobin 8.9(L) 11.2 - 15.7 GM/DL 12/04/2024 4:[address] [facility] Blood Venipuncture / Unknown 12/04/2024 4:27 PM EDT 12/04/2024 4:31 PM EDT us Timothy Bai MD LAB BLOOD ORDERABLES Final Result [facility] [address] [phone] * (ABNORMAL) Basic Metabolic Panel (12/04/2024 10:53 AM EDT) Sodium 146(H) 136 - 145 meq/L 12/04/2024 11:[address] [facility] Potassium 3.6 3.4 - 5.1 meq/L 12/04/2024 11:[address] [facility] CO2 20(L) 22 - 29 meq/L 12/04/2024 11:[address] [facility] Chloride 116(H) 98 - 112 meq/L 12/04/2024 11:[address] [facility] Glucose 137(H) 82 - 115 mg/dL 12/04/2024 11:[address] [facility] BUN 61.1(H) 9.8 - 20.1 mg/dL 12/04/2024 11:[address] [facility] Creatinine 3.38(H) 0.57 - 1.11 mg/dL 12/04/2024 11:[address] [facility] BUN/Creatinine 18 8 - 20 12/04/2024 11:[address] [facility] Calcium 8.5 8.4 - 10.2 mg/dL 12/04/2024 11:[address] [facility] Anion Gap 14(H) 4 - 12 12/04/2024 11:[address] [facility] eGFR (mL/min/1.73m2) 15(L) >=60 mL/min/1.7 3m2 12/04/2024 11:[address] [facility] Osmolality Calc 310.0 mOsm/kg 11:[address] [facility] Blood Venipuncture / Unknown 12/04/2024 10:53 AM EDT 12/04/2024 10:57 AM EDT Timothy Bai MD LAB BLOOD ORDERABLES Final Result Performing Organization Address [facility] Co de Phone Number [facility] [address] [phone] * (ABNORMAL) Glucose, Nova Meter (12/04/2024 10:52 AM EDT) POC-GLUCOSE 136(H) 70 - 110 mg/dL 12/04/2024 10:[address] [facility] Comment: In the event of poor peripheral blood flow, venous or arterial blood should be used due to the potential of erroneous results. Notified Nurse RBV Director Content Marketing [id number] 12/04/2024 10:[address] [facility] Blood WHOLE BLOOD / Unknown 12/04/2024 10:52 AM EDT 12/04/2024 10:[address] [facility] - 12/04/2024 10:57 AM EDT Director Content Marketing ID is - [id number] us Timothy Bai MD POINT OF CARE TEST ORDERAB LES Final Result Performing Organization Address [facility] Co de Phone Number [facility] [address] [phone] * (ABNORMAL) CBC with automated diff (12/04/2024 8:15 AM EDT) WBC 4.1 4.0 - 10.0 K/ L 12/04/2024 9:[address] [facility] RBC 2.90(L) 3.93 - 5.22 M/ L 12/04/2024 9:[address] [facility] Hemoglobin 8.8(L) 11.2 - 15.7 GM/DL 12/04/2024 9:[address] [facility] Hematocrit 29.0(L) 34.1 - 44.9 % 12/04/2024 9:[address] [facility] MCV 100(H) 79 - 95 fL 12/04/2024 9:[address] [facility] MCH 30.3 25.6 - 32.2 pg 12/04/2024 9:[address] [facility] MCHC 30.3(L) 32.2 - 35.5 GM/DL 12/04/2024 9:[address] [facility] RDW 17.7(H) 11.7 - 14.4 % 12/04/2024 9:[address] [facility] Platelets 65(L) 140 - 375 K/CU MM 12/04/2024 9:[address] [facility] MPV 10.8 9.4 - 12.3 fL 12/04/2024 9:[address] [facility] % Neutros 79(H) 34 - 71 % 12/04/2024 9:[address] [facility] % Lymphs 12(L) 19 - 52 % 12/04/2024 9:[address] [facility] % Monos 9 5 - 13 % 12/04/2024 9:[address] [facility] % Eos 0(L) 1 - 6 % 12/04/2024 9:[address] [facility] % Baso 0 0 - 1 % 12/04/2024 9:[address] [facility] NRBC Absolute <0.01 0 - 0.012 K/ul 12/04/2024 9:[address] [facility] # Neutros 3.25 1.56 - 6.13 K/ L 12/04/2024 9:[address] [facility] # Lymphs 0.48(L) 1.18 - 3.74 K/ L 12/04/2024 9:[address] [facility] # Monos 0.35 0.24 - 0.86 K/ L 12/04/2024 9:[address] [facility] # Eos <0.03(L) 0.04 - 0.36 K/ L 12/04/2024 9:[address] [facility] # Baso <0.03 0.01 - 0.08 K/ L 12/04/2024 9:[address] [facility] Immature Granulocytes-Re lative 0.50(H) 0.01 - 0.43 % 12/04/2024 9:[address] [facility] # IG <0.03 0.00 - 0.03 K/uL 12/04/2024 9:[address] [facility] Blood Venipuncture / Unknown 12/04/2024 8:15 AM EDT 12/04/2024 8:[address] [facility] - 12/04/2024 9:56 AM EDT [...] BLOOD ORDERABLES Final Result Performing Organization Address City/[facility]/ZIP Co de Phone Number [facility] [address] [phone] * (ABNORMAL) Hemoglobin (12/04/2024 8:15 AM EDT) [facility] Hemoglobin 9.0(L) 11.2 - 15.7 GM/DL 12/04/2024 8:[address] [facility] Blood Venipuncture / Unknown 12/04/2024 8:15 AM EDT 12/04/2024 8:32 AM EDT Timothy Bai MD LAB BLOOD ORDERABLES Final Result Performing Organization Address City/[facility]/ZIP Co de Phone Number [facility] [address] [phone] * ANCA Vasculitis Profile(SENDOUT) (12/04/2024 8:15 AM EDT) Pathologist [facility] Myeloperoxidase (MPO) Ab, IgG 0 0 - 19 AU/mL 12/07/2024 8:52 AM EDT [facility] Comment: INTERPRETIVE INFORMATION: Myeloperoxidase Abs, IgG 19 AU/mL or Less ......... Negative 20-25 AU/mL .............. Equivocal 26 AU/mL or Greater ...... Positive Approximately 90% of patients with a P-ANCA pattern by IFA have antibodies specific for MPO. Serine Proteinase 3 (PR3) Ab, IgG 0 0 - 19 AU/mL 12/07/2024 8:52 AM EDT [facility] [employer] Comment: INTERPRETIVE INFORMATION: Serine Proteinase 3, IgG 19 AU/mL or Less ........ Negative 20-25 AU/mL ............. Equivocal 26 AU/mL or Greater ..... Positive Approximately 85% of patients with a C-ANCA pattern by IFA have antibodies specific for PR3. ANCA IFA Titer <1:20 <1:20 12/07/2024 8:52 AM EDT [facility] ANCA IFA Pattern None Detected None Detected 12/07/2024 8:52 AM EDT [facility] [employer] Comment: INTERPRETIVE INFORMATION: ANCA IFA Pattern Neutrophil Cytoplasmic Antibodies (C-ANCA = granular cytoplasmic staining, P-ANCA = perinuclear staining) are found in the serum of over 90 percent of patients with certain necrotizing systemic vasculitides, and usually in less than 5 percent of patients with collagen vascular disease or arthritis. Performed By: [employer] [address] [place] [address] Optometrist: Lalo Mortensen MD, PhD CLIA Number: [id number] Blood Venipuncture / Unknown 12/04/2024 8:15 AM EDT 12/04/2024 8:32 AM EDT us Laura Cervantes MD LAB BLOOD ORDERABLES Final Re sult [facility] [facility] [employer] [address] [place] [address], [facility] [phone] * JEANA Reflexive Profile(SENDOUT) (12/04/2024 8:15 AM EDT) Anti-Nuclear Ab (JEANA), IgG by SHARON None Detected None Detected 12/06/2024 3:51 PM EDT [facility] Comment: No Anti-Nuclear Antibodies (JEANA) detected by SHARON. The Extractable Nuclear Antigen Antibodies (VOCATIONAL AIDE, Llanes, SSA 52, SSA 60, Scleroderma, Lilia-1 and SSB) and Double Stranded DNA (dsDNA) Antibody, IgG will not be performed. If suspicion of connective tissue disease is strong, and JEANA is negative by SHARON, consider testing for JEANA by IFA ([id number]). INTERPRETIVE INFORMATION: Anti-Nuclear Antibodies (JEANA), IgG by SHARON Antinuclear Antibodies (JEANA), IgG by SHARON: JEANA specimens are screened using enzyme-linked immunosorbent assay (SHARON) methodology. All SHARON results reported as Detected are further tested by indirect fluorescent assay (IFA) using HEp-2 substrate with an IgG-specific conjugate. The JEANA SHARON screen is designed to detect antibodies against dsDNA, histones, SS-A (Ro), SS-B (La), Llanes, Llanes/VOCATIONAL AIDE, Scl-70, Lilia-1, centromeric proteins, other antigens extracted from the HEp-2 cell nucleus. JEANA SHARON assays have been reported to have lower sensitivities than JEANA IFA for systemic autoimmune rheumatic diseases (SARD). Negative results do not necessarily rule out SARD. Performed By: [employer] [address] [place] [address] Optometrist: Lalo Mortensen MD, PhD CLIA Number: [id number] Blood Venipuncture / Unknown 12/04/2024 8:15 AM EDT 12/04/2024 8:32 AM EDT us Laura Cervantes MD LAB BLOOD ORDERABLES Final Re sult [facility] [address] [place] [address], [facility] [phone] * XR chest AP portable (12/04/2024 6:49 [...] by Regina Villasenor PA-C. Kirsty Tuttle APRN [facility] ORDER LONNY Final Result * (ABNORMAL) Blood gas, arterial (12/04/2024 6:34 AM EDT) pH, Arterial 7.29(L) 7.35 - 7.45 12/04/2024 7:[address] [facility] pCO2, Arterial 43 35 - 45 mm Hg 12/04/2024 7:[address] [facility] pO2, Arterial 106(H) 80 - 100 mm Hg 12/04/2024 7:[address] [facility] HCO3, Arterial 21 20 - 26 mmol/L 12/04/2024 7:[address] [facility] Base Excess, Arterial -5.2(L) -2.0 - 2.0 mmol/L 12/04/2024 7:[address] [facility] O2 Sat, Arterial 98.8 95.0 - 100.0 % 12/04/2024 7:[address] [facility] CTO2 ARTERIAL 11.9 mmol/L 12/04/2024 7:[address] [facility] THB ARTERIAL 8.6(L) 12.0 - 18.0 g/dL 12/04/2024 7:[address] [facility] COLLECTION SITE Right Brachial 12/04/2024 7:[address] [facility] Arterial Puncture Yes 12/04/2024 7:[address] [facility] Blood Gas O2 Delivery Device Cannula 12/04/2024 7:[address] [facility] Oxygen Flow Rate 3 12/05/19 7:[address] [facility] Blood Gas PT Temperature C 37.0 12/04/2024 7:[address] [facility] Sen's Test Not Applicable 12/05/19 7:[address] [facility] Critical Values Notification Critical Blood gas called to DAYANARA MATIAS . Results acknowledged/r ead back to [id number] and confirmed on 12/04/2024 07:09 12/04/2024 7:[address] [facility] ABG Number of Draw Attempts 1 12/04/2024 7:[address] [facility] FIO2 12/04/2024 7:[address] [facility] Blood Gas Temperature Corrected Results No No 12/04/2024 7:[address] [facility] Blood, Arterial 12/04/2024 6 :34 AM EDT 12/04/2024 7:10 AM EDT us Kirsty Tuttle APRN LAB BLOOD ORDERABLES Final R esult [facility] [address] [phone] * (ABNORMAL) Glucose, Nova Meter (12/04/2024 6:13 AM EDT) POC-GLUCOSE 155(H) 70 - 110 mg/dL 12/04/2024 6:[address] [facility] Comment: In the event of poor peripheral blood flow, venous or arterial blood should be used due to the potential of erroneous results. Protocols Followed Director Content Marketing [id number] 12/04/2024 6:[address] [facility] Blood WHOLE BLOOD / Unknown 12/04/2024 6:13 AM EDT 12/04/2024 6:[address] [facility] - 12/04/2024 6:14 AM EDT Director Content Marketing ID is - [id number] us Timothy Bai MD POINT OF CARE TEST ORDERAB LES Final Result [facility] [address] [phone] * (ABNORMAL) CBC with automated diff (12/04/2024 3:35 AM EDT) WBC 3.2(L) 4.0 - 10.0 K/ L 12/04/2024 3:[address] [facility] RBC 2.88(L) 3.93 - 5.22 M/ L 12/04/2024 3:[address] [facility] Hemoglobin 8.9(L) 11.2 - 15.7 GM/DL 12/04/2024 3:[address] [facility] Hematocrit 28.4(L) 34.1 - 44.9 % 12/04/2024 3:[address] [facility] MCV 99(H) 79 - 95 fL 12/04/2024 3:[address] [facility] MCH 30.9 25.6 - 32.2 pg 12/04/2024 3:[address] [facility] MCHC 31.3(L) 32.2 - 35.5 GM/DL 12/04/2024 3:[address] [facility] RDW 17.4(H) 11.7 - 14.4 % 12/04/2024 3:[address] [facility] Platelets 61(L) 140 - 375 K/CU MM 12/04/2024 3:[address] [facility] MPV 11.1 9.4 - 12.3 fL 12/04/2024 3:[address] [facility] % Neutros 80(H) 34 - 71 % 12/04/2024 3:[address] [facility] % Lymphs 12(L) 19 - 52 % 12/04/2024 3:[address] [facility] % Monos 8 5 - 13 % 12/04/2024 3:[address] [facility] % Eos 0(L) 1 - 6 % 12/04/2024 3:[address] [facility] % Baso 0 0 - 1 % 12/04/2024 3:[address] [facility] NRBC Absolute <0.01 0 - 0.012 K/ul 12/04/2024 3:[address] [facility] # Neutros 2.58 1.56 - 6.13 K/ L 12/04/2024 3:[address] [facility] # Lymphs 0.39(L) 1.18 - 3.74 K/ L 12/04/2024 3:[address] [facility] # Monos 0.25 0.24 - 0.86 K/ L 12/04/2024 3:[address] [facility] # Eos <0.03(L) 0.04 - 0.36 K/ L 12/04/2024 3:[address] [facility] # Baso <0.03 0.01 - 0.08 K/ L 12/04/2024 3:[address] [facility] Immature Granulocytes-Re lative 0.30 0.01 - 0.43 % 12/04/2024 3:[address] [facility] # IG <0.03 0.00 - 0.03 K/uL 12/04/2024 3:[address] [facility] Blood Venipuncture / Unknown 12/04/2024 3:35 AM EDT 12/04/2024 3:41 AM EDT [facility] - 12/04/2024 3:55 AM EDT [...] Flag noted Atypical Lymph flag noted us Kirtsy Tuttle APRN LAB BLOOD ORDERABLES Final R esult Performing Organization Address [facility]/ZIP Co de Phone Number [facility] [address] [phone] * Ammonia (12/04/2024 3:35 AM EDT) Ammonia 30 18 - 72 mol/L 12/04/2024 3:[address] [facility] Blood Venipuncture / Unknown 12/04/2024 3:35 AM EDT 12/04/2024 3:41 AM EDT us Timothy Bai MD LAB BLOOD ORDERABLES Final Result Performing Organization Address [facility] Co de Phone Number [facility] [address] [phone] * Phosphorus (12/04/2024 3:34 AM EDT) Phosphorus 4.2 2.5 - 4.5 mg/dL 12/04/2024 4:[address] [facility] Blood Venipuncture / Unknown 12/04/2024 3:34 AM EDT 12/04/2024 3:41 AM EDT Kirsty Tuttle APRN LAB BLOOD ORDERABLES Final R esult Performing Organization Address [facility] Co de Phone Number [facility] [address] [phone] * (ABNORMAL) Comprehensive Metabolic Panel (12/04/2024 3:34 AM EDT) Sodium 143 136 - 145 meq/L 12/04/2024 4:[address] [facility] Potassium 3.7 3.4 - 5.1 meq/L 12/04/2024 4:[address] [facility] Chloride 115(H) 98 - 112 meq/L 12/04/2024 4:04 AM [facility] CO2 20(L) 22 - 29 meq/L 12/04/2024 4:04 AM [facility] Calcium 8.3(L) 8.4 - 10.2 mg/dL 12/04/2024 4:04 AM [facility] Glucose 203(H) 82 - 115 mg/dL 12/04/2024 4:04 AM [facility] BUN 58.6(H) 9.8 - 20.1 mg/dL 12/04/2024 4:04 AM [facility] Creatinine 3.43(H) 0.57 - 1.11 mg/dL 12/04/2024 4:04 AM [facility] BUN/Creatinine 17 8 - 20 12/04/2024 4:04 AM [facility] eGFR (mL/min/1.73m2) 15(L) >=60 mL/min/1. 73m2 12/04/2024 4:04 AM [facility] Albumin 4.2 3.5 - 5.0 g/dL 12/04/2024 4:04 AM [facility] Alkaline Phosphatase 47 40 - 150 U/L 12/04/2024 4:04 AM [facility] ALT 11 <=34 U/L 12/04/2024 4:04 AM [facility] Comment: ALT2 reagent used for testing does not contain P5P supplementation and therefore may miss ALT elevations in patients with B6 deficiency. This population may be as high as 10% in the [place], with risk factors including malabsorption, drug interactions, and alcoholic hepatitis. AST 21 11 - 34 U/L 12/04/2024 4:04 AM [facility] Comment: AST2 reagent used for testing does not contain P5P supplementation and therefore may miss AST elevations in patients with B6 deficiency. This population may be as high as 10% in the [place], with risk factors including malabsorption, drug interactions, and alcoholic hepatitis. Total Bilirubin 1.1 0.2 - 1.2 mg/dL 12/04/2024 4:04 AM [facility] Protein, Total 6.7 6.4 - 8.3 g/dL 12/04/2024 4:[address] [facility] Globulin 2.5 2.5 - 4.1 g/dL 12/04/2024 4:[address] [facility] Anion Gap 12 4 - 12 12/04/2024 4:[address] [facility] A/G Ratio 1.7 0.7 - 1.9 12/04/2024 4:[address] [facility] Osmolality Calc 307.2 mOsm/kg 4:[address] [facility] Blood Venipuncture / Unknown 12/04/2024 3:34 AM EDT 12/04/2024 3:41 AM EDT Timothy Bai MD LAB BLOOD ORDERABLES Final Result Performing Organization Address [facility] [place] Phone Number [facility] [address] [phone] * Magnesium (12/04/2024 3:34 AM EDT) Pathologist [facility] Magnesium 2.5 1.6 - 2.6 mg/dL 12/04/2024 4:[address] [facility] Blood Venipuncture / Unknown 12/04/2024 3:34 AM EDT 12/04/2024 3:41 AM EDT Timothy Bai MD LAB BLOOD ORDERABLES Final Result Performing Organization Address [facility]/State/ZIP Co de Phone Number [facility] [address] [phone] * ECG 12 lead (12/04/2024 3:25 AM EDT) SYSTOLIC BLOOD PRESSURE (MCT) 165 mmHg GE MUSE DIASTOLIC BLOOD PRESSURE (MCT) 77 mmHg GE MUSE VENTRICULAR RATE EKG/MIN 80 BPM GE MUSE ATRIAL RATE (MCT) 80 BPM GE MUSE IL Interval 154 ms GE MUSE QRS-INTERVAL (MSEC) 76 ms GE MUSE QT Interval 380 ms GE MUSE QTC Interval 438 ms GE MUSE P [place] 47 degrees GE MUSE R AXIS (MCT) 44 degrees GE MUSE T Wave [place] -30 degrees GE MUSE [place] Diagnosis Normal sinus rhythm Low voltage QRS Nonspecific T wave abnormality Confirmed by DEYSI FOSS M.D. ([id number]) on 12/04/2024 11:05:22 AM GE MUSE 12/04/2024 3:25 AM EDT 12/04/2024 11:05 AM EDT us Deysi Foss MD ECG ORDERABLES Final Result Performing Organization Address City/[facility] Co de Phone Number GE MUSE * (ABNORMAL) Hemoglobin (12/04/2024 1:04 AM EDT) Pathologist [facility] Hemoglobin 9.0(L) 11.2 - 15.7 GM/DL 12/04/2024 1:[address] [facility] Blood Venipuncture / Unknown 12/04/2024 1:04 AM EDT 12/04/2024 1:20 AM EDT us Timothy Bai MD LAB BLOOD ORDERABLES Final Result Performing Organization Address [facility] Co de Phone Number [facility] [address] [place] [address] * (ABNORMAL) Glucose, Nova Meter (12/03/2024 9:41 PM EDT) Pathologist [facility] POC-GLUCOSE 146(H) 70 - 110 mg/dL 12/03/2024 9:[address] [facility] Comment: In the event of poor peripheral blood flow, venous or arterial blood should be used due to the potential of erroneous results. Protocols Followed Director Content Marketing [phone] 12/03/2024 9:[address] [facility] Blood WHOLE BLOOD / Unknown 12/03/2024 9:41 PM EDT 12/03/2024 9:[address] [facility] - 12/03/2024 9:43 PM EDT Director Content Marketing ID is - [id number] Timothy Bai MD POINT OF CARE TEST ORDERAB LES Final Result Performing Organization Address City/[facility]/ZIP Co de Phone Number [facility] [address] [phone] * (ABNORMAL) Glucose, Nova Meter (12/03/2024 5:19 PM EDT) POC-GLUCOSE 146(H) 70 - 110 mg/dL 12/03/2024 5:[address] [facility] Comment: In the event of poor peripheral blood flow, venous or arterial blood should be used due to the potential of erroneous results. Notified Nurse RBV Director Content Marketing [id number] 12/03/2024 5:[address] [facility] Blood WHOLE BLOOD / Unknown 12/03/2024 5:19 PM EDT 12/03/2024 5:[address] [facility] - 12/03/2024 5:24 PM EDT Director Content Marketing ID is - [id number] Timothy Bai MD POINT OF CARE TEST ORDERAB LES Final Result Performing Organization Address City/[facility]/ZIP Co de Phone Number [facility] [address] [phone] * XR chest AP portable (12/03/2024 4:45 [...] ECG 12 lead (12/03/2024 2:16 PM EDT) Pathologist [facility] VENTRICULAR RATE EKG/MIN 136 BPM GE MUSE ATRIAL RATE (MCT) 73 BPM GE MUSE QRS-INTERVAL (MSEC) 88 ms GE MUSE QT Interval 304 ms GE MUSE QTC Interval 457 ms GE MUSE R AXIS (MCT) -11 degrees GE MUSE T Wave [place] -58 degrees GE MUSE [place] Diagnosis Atrial fibrillation with rapid ventricular response Possible Anterolateral infarct , age undetermined Possible abberancy Confirmed by DEYSI FOSS M.D. ([id number]) on 12/03/2024 5:58:45 PM GE MUSE 12/03/2024 2:16 PM EDT 12/03/2024 5:58 PM EDT Timothy Bai MD ECG ORDERABLES Final Resu lt GE MUSE * (ABNORMAL) Glucose, Nova Meter (12/03/2024 10:45 AM EDT) Pathologist [facility] POC-GLUCOSE 156(H) 70 - 110 mg/dL 12/03/2024 10:[address] [facility] Comment: In the event of poor peripheral blood flow, venous or arterial blood should be used due to the potential of erroneous results. Notified Nurse RBV Director Content Marketing [id number] 12/03/2024 10:[address] [facility] Blood WHOLE BLOOD / Unknown 12/03/2024 10:45 AM EDT 12/03/2024 10:[address] [facility] - 12/03/2024 10:49 AM EDT Director Content Marketing ID is - [id number] us Timothy Bai MD POINT OF CARE TEST ORDERAB LES Final Result [facility] [address] [phone] * ECG 12 lead (12/03/2024 10:39 AM EDT) VENTRICULAR RATE EKG/MIN 97 BPM GE MUSE ATRIAL RATE (MCT) 97 BPM GE MUSE [place] Interval 150 ms GE MUSE QRS-INTERVAL (MSEC) 88 ms GE MUSE QT Interval 362 ms GE MUSE QTC Interval 459 ms GE MUSE P [place] 40 degrees GE MUSE R AXIS (MCT) 8 degrees GE MUSE T Wave [place] -8 degrees GE MUSE [place] Diagnosis Normal sinus rhythm Normal ECG No previous ECGs available Confirmed by DEYSI FOSS M.D. ([id number]) on 12/03/2024 5:59:01 PM GE MUSE 12/03/2024 10:3 9 AM EDT 12/03/2024 5:59 PM EDT us Timothy Bai MD ECG ORDERABLES Final Resu lt [employer] * (ABNORMAL) CBC with automated diff (12/03/2024 8:31 AM EDT) WBC 2.8(L) 4.0 - 10.0 K/ L 12/03/2024 9:[address] [facility] RBC 2.68(L) 3.93 - 5.22 M/ L 12/03/2024 9:[address] [facility] Hemoglobin 8.2(L) 11.2 - 15.7 GM/DL 12/03/2024 9:[address] [facility] Hematocrit 26.1(L) 34.1 - 44.9 % 12/03/2024 9:[address] [facility] MCV 97(H) 79 - 95 fL 12/03/2024 9:[address] [facility] MCH 30.6 25.6 - 32.2 pg 12/03/2024 9:[address] [facility] MCHC 31.4(L) 32.2 - 35.5 GM/DL 12/03/2024 9:[address] [facility] RDW 17.5(H) 11.7 - 14.4 % 12/03/2024 9:[address] [facility] Platelets 55(L) 140 - 375 K/CU MM 12/03/2024 9:[address] [facility] MPV 10.0 9.4 - 12.3 fL 12/03/2024 9:[address] [facility] % Neutros 79(H) 34 - 71 % 12/03/2024 9:[address] [facility] % Lymphs 13(L) 19 - 52 % 12/03/2024 9:[address] [facility] % Monos 6 5 - 13 % 12/03/2024 9:[address] [facility] % Eos 0(L) 1 - 6 % 12/03/2024 9:[address] [facility] % Baso 0 0 - 1 % 12/03/2024 9:[address] [facility] NRBC Absolute <0.01 0 - 0.012 K/ul 12/03/2024 9:[address] [facility] # Neutros 2.22 1.56 - 6.13 K/ L 12/03/2024 9:[address] [facility] # Lymphs 0.37(L) 1.18 - 3.74 K/ L 12/03/2024 9:[address] [facility] # Monos 0.18(L) 0.24 - 0.86 K/ L 12/03/2024 9:[address] [facility] # Eos <0.03(L) 0.04 - 0.36 K/ L 12/03/2024 9:[address] [facility] # Baso <0.03 0.01 - 0.08 K/ L 12/03/2024 9:[address] [facility] Immature Granulocytes-Re lative 0.70(H) 0.01 - 0.43 % 12/03/2024 9:[address] [facility] # IG <0.03 0.00 - 0.03 K/uL 12/03/2024 9:[address] [facility] Blood Venipuncture / Unknown 12/03/2024 8:31 AM EDT 12/03/2024 8:[address] [facility] - 12/03/2024 9:00 AM EDT [...] BLOOD ORDERABLES Final Result Performing Organization Address [facility]/ZIP Co de Phone Number [facility] [address] [place] [address] * Creatine Kinase (CK) (12/03/2024 7:39 AM EDT) Total CK 55 29 - 168 U/L 12/03/2024 6:[address] [facility] Blood Venipuncture / Unknown 12/03/2024 7:39 AM EDT 12/03/2024 5:52 PM EDT us Laura Cervantes MD LAB BLOOD ORDERABLES Final Re sult [facility] [address] [phone] * Ammonia (12/03/2024 7:39 AM EDT) Ammonia 36 18 - 72 mol/L 12/03/2024 7:[address] [facility] Blood Venipuncture / Unknown 12/03/2024 7:39 AM EDT 12/03/2024 7:[address] [facility] - 12/03/2024 7:56 AM EDT Specimen slightly hemolyzed us Timothy Bai MD LAB BLOOD ORDERABLES Final Result [facility] [address] [place] [id number] [phone] * (ABNORMAL) Comprehensive Metabolic Panel (12/03/2024 7:39 AM EDT) Sodium 147(H) 136 - 145 meq/L 12/03/2024 8:[address] [facility] Potassium 4.1 3.4 - 5.1 meq/L 12/03/2024 8:[address] [facility] Chloride 119(H) 98 - 112 meq/L 12/03/2024 8:[address] [facility] CO2 20(L) 22 - 29 meq/L 12/03/2024 8:[address] [facility] Calcium 8.3(L) 8.4 - 10.2 mg/dL 12/03/2024 8:[address] [facility] Glucose 145(H) 82 - 115 mg/dL 12/03/2024 8:[address] [facility] BUN 53.7(H) 9.8 - 20.1 mg/dL 12/03/2024 8:[address] [facility] Creatinine 3.48(H) 0.57 - 1.11 mg/dL 12/03/2024 8:[address] [facility] BUN/Creatinine 15 8 - 20 12/03/2024 8:[address] [facility] eGFR (mL/min/1.73m2) 14(L) >=60 mL/min/1. 73m2 12/03/2024 8:[address] [facility] Albumin 4.4 3.5 - 5.0 g/dL 12/03/2024 8:[address] [facility] Alkaline Phosphatase 49 40 - 150 U/L 12/03/2024 8:[address] [facility] ALT 7 <=34 U/L 12/03/2024 8:[address] [facility] Comment: ALT2 reagent used for testing does not contain P5P supplementation and therefore may miss ALT elevations in patients with B6 deficiency. This population may be as high as 10% in the [place], with risk factors including malabsorption, drug interactions, and alcoholic hepatitis. AST 21 11 - 34 U/L 12/03/2024 8:[address] [facility] Comment: AST2 reagent used for testing does not contain P5P supplementation and therefore may miss AST elevations in patients with B6 deficiency. This population may be as high as 10% in the [place], with risk factors including malabsorption, drug interactions, and alcoholic hepatitis. Total Bilirubin 1.1 0.2 - 1.2 mg/dL 12/03/2024 8:[address] [facility] Protein, Total 6.8 6.4 - 8.3 g/dL 12/03/2024 8:[address] [facility] Globulin 2.4(L) 2.5 - 4.1 g/dL 12/03/2024 8:[address] [facility] Anion Gap 12 4 - 12 12/03/2024 8:[address] [facility] A/G Ratio 1.8 0.7 - 1.9 12/03/2024 8:[address] [facility] Osmolality Calc 309.7 mOsm/kg 8:[address] [facility] Blood Venipuncture / Unknown 12/03/2024 7:39 AM EDT 12/03/2024 7:46 AM EDT us Timothy Bai MD LAB BLOOD ORDERABLES Final Result [facility] [address] [phone] * Magnesium (12/03/2024 7:39 AM EDT) Magnesium 2.5 1.6 - 2.6 mg/dL 12/03/2024 8:[address] [facility] Blood Venipuncture / Unknown 12/03/2024 7:39 AM EDT 12/03/2024 7:46 AM EDT us Timothy Bai MD LAB BLOOD ORDERABLES Final Result [facility] 1 [place] [address], [facility] [phone] * (ABNORMAL) Glucose, Nova Meter (12/03/2024 5:13 AM EDT) POC-GLUCOSE 142(H) 70 - 110 mg/dL 12/03/2024 5:[address] [facility] Comment: In the event of poor peripheral blood flow, venous or arterial blood should be used due to the potential of erroneous results. Protocols Followed Director Content Marketing [id number] 12/03/2024 5:[address] [facility] Blood WHOLE BLOOD / Unknown 12/03/2024 5:13 AM EDT 12/03/2024 5:[address] [facility] - 12/03/2024 5:15 AM EDT Director Content Marketing ID is - [id number] us Timothy Bai MD POINT OF CARE TEST ORDERAB LES Final Result Performing Organization Address City/[facility]/ZIP Co de Phone Number [facility] [address] [phone] * (ABNORMAL) Glucose, Nova Meter (12/03/2024 1:12 AM EDT) POC-GLUCOSE 168(H) 70 - 110 mg/dL 12/03/2024 1:[address] [facility] Comment: In the event of poor peripheral blood flow, venous or arterial blood should be used due to the potential of erroneous results. Protocols Followed Director Content Marketing [id number] 12/03/2024 1:[address] [facility] Blood WHOLE BLOOD / Unknown 12/03/2024 1:12 AM EDT 12/03/2024 1:[address] [facility] - 12/03/2024 1:13 AM EDT Director Content Marketing ID is - [id number] us Timothy Bai MD POINT OF CARE TEST ORDERAB LES Final Result Performing Organization Address City/[facility]/ZIP Co de Phone Number [facility] [address] [phone] * (ABNORMAL) Glucose, Nova Meter (12/03/2024 1:10 AM EDT) POC-GLUCOSE 164(H) 70 - 110 mg/dL 12/03/2024 1:[address] [facility] Comment: In the event of poor peripheral blood flow, venous or arterial blood should be used due to the potential of erroneous results. Protocols Followed Director Content Marketing [id number] 12/03/2024 1:[address] [facility] Blood WHOLE BLOOD / Unknown 12/03/2024 1:10 AM EDT 12/03/2024 1:[address] [facility] - 12/03/2024 1:12 AM EDT Director Content Marketing ID is - [id number] us Timothy Bai MD POINT OF CARE TEST ORDERAB LES Final Result Performing Organization Address [facility]/ZIP Co de Phone Number [facility] [address] [phone] * (ABNORMAL) Hemoglobin (12/02/2024 11:06 PM EDT) Pathologist [facility] Hemoglobin 8.9(L) 11.2 - 15.7 GM/DL 12/02/2024 11:[address] [facility] Blood Venipuncture / Unknown 12/02/2024 11:06 PM EDT 12/02/2024 11:15 PM EDT us Denilson Hodgson DO LAB BLOOD ORDERABLES Final Res ult [facility] [address] [phone] * (ABNORMAL) Glucose, Nova Meter (12/02/2024 8:06 PM EDT) POC-GLUCOSE 144(H) 70 - 110 mg/dL 12/02/2024 8:[address] [facility] Comment: In the event of poor peripheral blood flow, venous or arterial blood should be used due to the potential of erroneous results. Protocols Followed Director Content Marketing [id number] 12/02/2024 8:[address] [facility] Blood WHOLE BLOOD / Unknown 12/02/2024 8:06 PM EDT 12/02/2024 8:[address] [facility] - 12/02/2024 8:08 PM EDT Director Content Marketing ID is - [id number] Timothy Bai MD POINT OF CARE TEST ORDERAB LES Final Result Performing Organization Address [facility]/ZIP Co de Phone Number [facility] [address] [phone] * (ABNORMAL) Hemoglobin (12/02/2024 6:03 PM EDT) Hemoglobin 9.1(L) 11.2 - 15.7 GM/DL 12/02/2024 6:[address] [facility] Blood Venipuncture / Unknown 12/02/2024 6:03 PM EDT 12/02/2024 6:19 PM EDT Timothy Bai MD LAB BLOOD ORDERABLES Final Result [facility] [address] [phone] * (ABNORMAL) Glucose, Nova Meter (12/02/2024 5:18 PM EDT) POC-GLUCOSE 128(H) 70 - 110 mg/dL 12/02/2024 5:[address] [facility] Comment: In the event of poor peripheral blood flow, venous or arterial blood should be used due to the potential of erroneous results. Notified Nurse RBV Director Content Marketing [id number] 12/02/2024 5:[address] [facility] Blood WHOLE BLOOD / Unknown 12/02/2024 5:18 PM EDT 12/02/2024 5:[address] [facility] - 12/02/2024 5:21 PM EDT Director Content Marketing ID is - [id number] us Timothy Bai MD POINT OF CARE TEST ORDERAB LES Final Result [facility] [address] [phone] * Transfuse RBC (12/02/2024 5:03 PM EDT) us Timothy Bai MD FS_MODEL_IP_BLOOD TRANSFUS ION ORDERABLES Final Result * Transfuse RBC: 1 Units (12/02/2024 5:03 PM EDT) us Timothy Bai MD FS_MODEL_IP_BLOOD TRANSFUS ION ORDERABLES Final Result * (ABNORMAL) Glucose, Nova Meter (12/02/2024 12:51 PM EDT) [facility] POC-GLUCOSE 112(H) 70 - 110 mg/dL 12/02/2024 12:[address] [facility] Comment: In the event of poor peripheral blood flow, venous or arterial blood should be used due to the potential of erroneous results. Notified Nurse RBV Director Content Marketing [id number] 12/02/2024 12:[address] [facility] Blood WHOLE BLOOD / Unknown 12/02/2024 12:51 PM EDT 12/02/2024 12:[address] [facility] - 12/02/2024 12:53 PM EDT Director Content Marketing ID is - [id number] us Timothy Bai MD POINT OF CARE TEST ORDERAB LES Final Result Performing Organization Address City/[facility]/ZIP Co de Phone Number [facility] [address] [phone] * CT bone marrow biopsy (12/02/2024 12:24 [...] Pancytopenia. ATTENDING RADIOLOGIST: Dr. Haseeb Gil. PHYSICIAN SIDE STITCHER: Sandra Ramsey PA-C PROCEDURE: After informed consent [...] Pancytopenia. ATTENDING RADIOLOGIST: Dr. Haseeb Gil. PHYSICIAN SIDE STITCHER: Sandra Ramsey PA-C PROCEDURE: After informed consent [...] Sandra Ramsey PA-C. us Laura Rangel MD [facility] [place] ORDERABLES Final Result * [facility] BONE MARROW SMEAR, ASPIRATION, AND STAIN (12/02/2024 12:06 PM EDT) AP RESULT See Note: [facility] Comment: [facility] [address] [place] [address] or [phone] Joe Carlos M.D., Transfer Coordinator PATIENT NAME LABORATORY NO. MARY OLIVA. [id number] [facility] MAIN AGE SEX SSN CLIENT REF # [id number] F [id number] [address] [place] [address] REQUESTING Aleksandr ATTENDING Aleksandr. COPY TO.. LAUAR RANGEL DATE COLLECTED DATE RECEIVED DATE REPORTED 12/02/2024 12/02/2024 12/06/2024 ADDENDUM PRESENT ADDENDUM: Cytogenetics shows a normal female karyotype, 46,XX[20]. The original diagnosis remains unchanged. Verified by Heydi Mak M.D., MPH on 12/13/2024 Professional interpretation rendered by Heydi Mak M.D., MPH at [facility], [address] [place] [address]. DIAGNOSIS: PERIPHERAL SMEAR , BONE MARROW ASPIRATION [...] CD38, CD45, CD56, CD57, CD117, CD123, HLA-DR, [place], and Lambda. These tests use analyte specific [...] rendered by Heydi Mak M.D., MPH at [facility], [address] [place] [address]. GROSS DESCRIPTION: A. Received 1 peripheral blood smear slide for review. B. Received 5 bone marrow aspirate smear slides for review. 4 additional bone marrow aspirate smear slides made at [facility]. C. Received in a purple top [...] BY: Heydi Mak M.D., MPH CPT CODES: 98368, 2FLP, 24298, [id number], [id number], 20069, 19408, 28816x8 Bone Marrow BONE MARROW STRUCTURE / Unknown 12/02/2024 12:06 PM EDT us Laura Rangel MD PATHOLOGY/CYTOLOGY ORDERABLES Edited Result - Final [facility] [address] [place] [address] * Prepare RBC: 1 Units (12/02/2024 9:36 AM EDT) Issue Date/Time [id number] [facility] [place] Product Identification Red Blood Cells [facility] [place]) Product Code [id number] [facility] [place] Status Information Transfused [facility] [place] Unit Number [id number] [facility] [place] Blood Type 5100 [facility] [place] Cross Match Results Compatible [facility] [place] us Timothy Bai MD FS_MODEL_IP_BLOOD BANK PRO DUCT ORDERABLES Final Result [facility] [place] 1 [place] [address], [facility] [phone] * (ABNORMAL) Hemoglobin and hematocrit (12/02/2024 7:40 AM EDT) Hemoglobin 7.4(L) 11.2 - 15.7 GM/DL 12/02/2024 9:[address] [facility] Hematocrit 23.4(L) 34.1 - 44.9 % 12/02/2024 9:[address] [facility] Blood Venipuncture / Unknown 12/02/2024 7:40 AM EDT 12/02/2024 7:47 AM EDT Timothy Bai MD LAB BLOOD ORDERABLES Final Result Performing Organization Address [facility]/ZIP Co de Phone Number [facility] [address] [phone] * (ABNORMAL) Hemoglobin (12/02/2024 7:40 AM EDT) [facility] Hemoglobin 7.3(L) 11.2 - 15.7 GM/DL 12/02/2024 7:[address] [facility] Blood Venipuncture / Unknown 12/02/2024 7:40 AM EDT 12/02/2024 7:47 AM EDT Timothy Bai MD LAB BLOOD ORDERABLES Final Result [facility] [address] [phone] * (ABNORMAL) Glucose, Nova Meter (12/02/2024 5:04 AM EDT) [facility] POC-GLUCOSE 115(H) 70 - 110 mg/dL 12/02/2024 5:[address] [facility] Comment: In the event of poor peripheral blood flow, venous or arterial blood should be used due to the potential of erroneous results. Notified Nurse RBV Director Content Marketing [id number] 12/02/2024 5:[address] [facility] Blood WHOLE BLOOD / Unknown 12/02/2024 5:04 AM EDT 12/02/2024 5:06 AM EDT [facility] - 12/02/2024 5:06 AM EDT Director Content Marketing ID is - [id number] us Timothy Bai MD POINT OF CARE TEST ORDERAB LES Final Result Performing Organization Address [facility] Co de Phone Number [facility] [address] [phone] * (ABNORMAL) Ammonia (12/02/2024 3:38 AM EDT) Ammonia 74(H) 18 - 72 mol/L 12/02/2024 5:[address] [facility] Blood Venipuncture / Unknown 12/02/2024 3:38 AM EDT 12/02/2024 4:47 AM EDT [facility] - 12/02/2024 5:20 AM EDT Specimen slightly hemolyzed us Timothy Bai MD LAB BLOOD ORDERABLES Final Result Performing Organization Address [facility] Co de Phone Number [facility] [address] [phone] * (ABNORMAL) Comprehensive Metabolic Panel (12/02/2024 3:38 AM EDT) Sodium 146(H) 136 - 145 meq/L 12/02/2024 5:[address] [facility] Potassium 4.2 3.4 - 5.1 meq/L 12/02/2024 5:[address] [facility] Chloride 118(H) 98 - 112 meq/L 12/02/2024 5:[address] [facility] CO2 19(L) 22 - 29 meq/L 12/02/2024 5:[address] [facility] Calcium 7.9(L) 8.4 - 10.2 mg/dL 12/02/2024 5:30 AM [facility] Glucose 107 82 - 115 mg/dL 12/02/2024 5:30 AM [facility] BUN 55.1(H) 9.8 - 20.1 mg/dL 12/02/2024 5:30 AM [facility] Creatinine 3.55(H) 0.57 - 1.11 mg/dL 12/02/2024 5:30 AM [facility] BUN/Creatinine 16 8 - 20 12/02/2024 5:30 AM [facility] eGFR (mL/min/1.73m2) 14(L) >=60 mL/min/1. 73m2 12/02/2024 5:30 AM [facility] Albumin 3.6 3.5 - 5.0 g/dL 12/02/2024 5:30 AM [facility] Alkaline Phosphatase 49 40 - 150 U/L 12/02/2024 5:30 AM [facility] ALT 8 <=34 U/L 12/02/2024 5:30 AM [facility] Comment: ALT2 reagent used for testing does not contain P5P supplementation and therefore may miss ALT elevations in patients with B6 deficiency. This population may be as high as 10% in the [place], with risk factors including malabsorption, drug interactions, and alcoholic hepatitis. AST 32 11 - 34 U/L 12/02/2024 5:30 AM [facility] Comment: AST2 reagent used for testing does not contain P5P supplementation and therefore may miss AST elevations in patients with B6 deficiency. This population may be as high as 10% in the [place], with risk factors including malabsorption, drug interactions, and alcoholic hepatitis. Total Bilirubin 0.9 0.2 - 1.2 mg/dL 12/02/2024 5:30 AM [facility] Protein, Total 6.1(L) 6.4 - 8.3 g/dL 12/02/2024 5:30 AM [facility] Globulin 2.5 2.5 - 4.1 g/dL 12/02/2024 5:30 AM [facility] Anion Gap 13(H) 4 - 12 12/02/2024 5:[address] [facility] A/G Ratio 1.4 0.7 - 1.9 12/02/2024 5:[address] [facility] Osmolality Calc 306.2 mOsm/kg 5:[address] [facility] Blood Venipuncture / Unknown 12/02/2024 3:38 AM EDT 12/02/2024 4:48 AM EDT [facility] - 12/02/2024 5:30 AM EDT Specimen slightly hemolyzed Timothy Bai MD LAB BLOOD ORDERABLES Final Result [facility] [address] [phone] * Magnesium (12/02/2024 3:38 AM EDT) Magnesium 2.5 1.6 - 2.6 mg/dL 12/02/2024 5:[address] [facility] Blood Venipuncture / Unknown 12/02/2024 3:38 AM EDT 12/02/2024 4:48 AM EDT [facility] - 12/02/2024 5:30 AM EDT Specimen slightly hemolyzed Timothy Bai MD LAB BLOOD ORDERABLES Final Result [facility] [address] [phone] * (ABNORMAL) CBC - Hemogram (SJ-BKR) (12/02/2024 3:38 AM EDT) WBC 3.0(L) 4.0 - 10.0 K/ L 12/02/2024 5:[address] [facility] RBC 2.43(L) 3.93 - 5.22 M/ L 12/02/2024 5:[address] [facility] Hemoglobin 7.6(L) 11.2 - 15.7 GM/DL 12/02/2024 5:[address] [facility] Hematocrit 24.2(L) 34.1 - 44.9 % 12/02/2024 5:[address] [facility] MCV 100(H) 79 - 95 fL 12/02/2024 5:[address] [facility] MCH 31.3 25.6 - 32.2 pg 12/02/2024 5:[address] [facility] MCHC 31.4(L) 32.2 - 35.5 GM/DL 12/02/2024 5:[address] [facility] RDW 17.1(H) 11.7 - 14.4 % 12/02/2024 5:[address] [facility] Platelets 57(L) 140 - 375 K/CU MM 12/02/2024 5:[address] [facility] MPV 10.5 9.4 - 12.3 fL 12/02/2024 5:[address] [facility] Blood Venipuncture / Unknown 12/02/2024 3:38 AM EDT 12/02/2024 4:47 AM EDT Timothy Bai MD LAB BLOOD ORDERABLES Final Result [facility] [address] [phone] * (ABNORMAL) Hemoglobin (12/02/2024 12:04 AM EDT) Hemoglobin 7.7(L) 11.2 - 15.7 GM/DL 12/02/2024 12:[address] [facility] Blood Venipuncture / Unknown 12/02/2024 12:04 AM EDT 12/02/2024 12:16 AM EDT Timothy Bai MD LAB BLOOD ORDERABLES Final Result [facility] [address] [phone] * (ABNORMAL) Glucose, Nova Meter (12/01/2024 7:34 PM EDT) POC-GLUCOSE 128(H) 70 - 110 mg/dL 12/01/2024 7:[address] [facility] Comment: In the event of poor peripheral blood flow, venous or arterial blood should be used due to the potential of erroneous results. Notified Nurse RBV Director Content Marketing [id number] 12/01/2024 7:[address] [facility] Blood WHOLE BLOOD / Unknown 12/01/2024 7:34 PM EDT 12/01/2024 7:35 PM EDT [facility] - 12/01/2024 7:35 PM EDT Director Content Marketing ID is - [id number] Timothy Bai MD POINT OF CARE TEST ORDERAB LES Final Result Performing Organization Address [facility] Co de Phone Number [facility] [address] [phone] * (ABNORMAL) Glucose, Nova Meter (12/01/2024 4:25 PM EDT) Pathologist [facility] POC-GLUCOSE 115(H) 70 - 110 mg/dL 12/01/2024 4:[address] [facility] Comment: In the event of poor peripheral blood flow, venous or arterial blood should be used due to the potential of erroneous results. Notified Nurse RBV Director Content Marketing [id number] 12/01/2024 4:[address] [facility] Blood WHOLE BLOOD / Unknown 12/01/2024 4:25 PM EDT 12/01/2024 4:26 PM EDT [facility] - 12/01/2024 4:26 PM EDT Director Content Marketing ID is - [id number] Timothy Bai MD POINT OF CARE TEST ORDERAB LES Final Result Performing Organization Address [facility] Co de Phone Number [facility] [address] [phone] * (ABNORMAL) Hemoglobin (12/01/2024 3:33 PM EDT) Hemoglobin 8.0(L) 11.2 - 15.7 GM/DL 12/01/2024 4:[address] [facility] Blood Venipuncture / Unknown 12/01/2024 3:33 PM EDT 12/01/2024 4:00 PM EDT us Timothy Bai MD LAB BLOOD ORDERABLES Final Result [facility] [address] [place] [address] * Glucose, Nova Meter (12/01/2024 10:32 AM EDT) Pathologist [facility] POC-GLUCOSE 100 70 - 110 mg/dL 12/01/2024 10:[address] [facility] Comment: In the event of poor peripheral blood flow, venous or arterial blood should be used due to the potential of erroneous results. Notified Nurse RBV Director Content Marketing [id number] 12/01/2024 10:[address] [facility] Blood WHOLE BLOOD / Unknown 12/01/2024 10:32 AM EDT 12/01/2024 10:[address] [facility] - 12/01/2024 10:33 AM EDT Director Content Marketing ID is - [id number] us Timothy Bai MD POINT OF CARE TEST ORDERAB LES Final Result [facility] [address] [phone] * Transfuse RBC (12/01/2024 9:18 AM EDT) us Denilson Hodgson DO FS_MODEL_IP_BLOOD TRANSFUSION ORDERABLES Final Result * Transfuse RBC: 1 Units (12/01/2024 9:18 AM EDT) us Denilson Hodgson DO _MODEL_IP_BLOOD TRANSFUSION ORDERABLES Final Result * Glucose, Nova Meter (12/01/2024 8:12 AM EDT) POC-GLUCOSE 103 70 - 110 mg/dL 12/01/2024 8:[address] [facility] Comment: In the event of poor peripheral blood flow, venous or arterial blood should be used due to the potential of erroneous results. Protocols Followed Director Content Marketing [id number] 12/01/2024 8:14 AM EDT [facility] Blood WHOLE BLOOD / Unknown 12/01/2024 8:12 AM EDT 12/01/2024 8:[address] [facility] - 12/01/2024 8:14 AM EDT Director Content Marketing ID is - [id number] us Timothy Bai MD POINT OF CARE TEST ORDERAB LES Final Result [facility] [address] [phone] * Type and Screen (12/01/2024 7:08 AM EDT) ABO/Rh O Positive 12/01/2024 4:53 AM EDT [facility] [place] Antibody Screen Negative 12/01/2024 4:53 AM EDT [facility] [place] HISTCHK HIST CHECK PERFORMED 12/01/2024 4:53 AM EDT [facility] [place] Blood Venipuncture / Unknown 12/01/2024 7:08 AM EDT 12/01/2024 7:15 AM EDT us Denilson Hodgson DO [facility] BLOOD B[facility] TEST ORDERABLES Final Result [facility] [place] [address] [place] [address] * Glucose, Nova Meter (12/01/2024 5:37 AM EDT) POC-GLUCOSE 107 70 - 110 mg/dL 12/01/2024 5:[address] [facility] Comment: In the event of poor peripheral blood flow, venous or arterial blood should be used due to the potential of erroneous results. Notified Nurse RBV Director Content Marketing [id number] 12/01/2024 5:[address] [facility] Blood WHOLE BLOOD / Unknown 12/01/2024 5:37 AM EDT 12/01/2024 5:[address] [facility] - 12/01/2024 5:39 AM EDT Director Content Marketing ID is - [id number] us Timothy Bai MD POINT OF CARE TEST ORDERAB LES Final Result [facility] 1 [place] [address], [facility] [phone] * Prepare RBC: 1 Units (12/01/2024 4:53 AM EDT) Pathologist [facility] Issue Date/Time [id number] [facility] [place] Product Identification Red Blood Cells [facility] [place]) Product Code [id number] [facility] [place] Status Information Transfused [facility] [place] Unit Number [id number] [facility] [place] Blood Type 5100 [facility] [place] Cross Match Results Compatible [facility] [place] us Denilson Hodgson DO FS_MODEL_IP_BLOOD BANK PRODUCT ORDERABLES Final Result [facility] ([place] 1 [place] [address], [facility] [phone] * ABO/RH Confirmation/Retype (12/01/2024 4:06 AM EDT) Pathologist [facility] RETYPE O Positive 12/01/2024 5:15 AM EDT [facility] ([place] Comment:[id number] Blood Venipuncture / Unknown 12/01/2024 4:06 AM EDT 12/01/2024 5:14 AM EDT Timothy Bai MD [facility] BLOOD [facility] TEST ORDERA BLES Final Result Performing Organization Address [facility]/ZIP Co de Phone Number [facility] [place] [address] [phone] * (ABNORMAL) Ammonia (12/01/2024 4:06 AM EDT) Ammonia 75(H) 18 - 72 mol/L 12/01/2024 4:[address] [facility] Blood Venipuncture / Unknown 12/01/2024 4:06 AM EDT 12/01/2024 4:13 AM EDT Timothy Bai MD LAB BLOOD ORDERABLES Final Result Performing Organization Address City/[facility]/ZIP Co de Phone Number [facility] [address] [place] [address] * (ABNORMAL) CBC - Hemogram (SJ-BKR) (12/01/2024 4:06 AM EDT) WBC 1.7(LL) 4.0 - 10.0 K/ L 12/01/2024 4:[address] [facility] RBC 2.15(L) 3.93 - 5.22 M/ L 12/01/2024 4:[address] [facility] Hemoglobin 6.7(L) 11.2 - 15.7 GM/DL 12/01/2024 4:[address] [facility] Hematocrit 21.6(L) 34.1 - 44.9 % 12/01/2024 4:[address] [facility] MCV 101(H) 79 - 95 fL 12/01/2024 4:[address] [facility] MCH 31.2 25.6 - 32.2 pg 12/01/2024 4:[address] [facility] MCHC 31.0(L) 32.2 - 35.5 GM/DL 12/01/2024 4:[address] [facility] RDW 16.2(H) 11.7 - 14.4 % 12/01/2024 4:[address] [facility] Platelets 54(L) 140 - 375 K/CU MM 12/01/2024 4:[address] [facility] MPV 10.6 9.4 - 12.3 fL 12/01/2024 4:[address] [facility] Blood Venipuncture / Unknown 12/01/2024 4:06 AM EDT 12/01/2024 4:12 AM EDT us Timothy Bai MD LAB BLOOD ORDERABLES Final Result Performing Organization Address City/State/[facility] Co de Phone Number [facility] [address] [phone] * (ABNORMAL) Comprehensive Metabolic Panel (12/01/2024 4:05 AM EDT) Sodium 145 136 - 145 meq/L 12/01/2024 5:[address] [facility] Potassium 4.2 3.4 - 5.1 meq/L 12/01/2024 5:[address] [facility] Chloride 116(H) 98 - 112 meq/L 12/01/2024 5:[address] [facility] CO2 20(L) 22 - 29 meq/L 12/01/2024 5:[address] [facility] Calcium 8.0(L) 8.4 - 10.2 mg/dL 12/01/2024 5:[address] [facility] Glucose 120(H) 82 - 115 mg/dL 12/01/2024 5:[address] [facility] BUN 68.3(H) 9.8 - 20.1 mg/dL 12/01/2024 5:[address] [facility] Creatinine 4.13(H) 0.57 - 1.11 mg/dL 12/01/2024 5:01 AM [facility] BUN/Creatinine 17 8 - 20 12/01/2024 5:01 AM [facility] eGFR (mL/min/1.73m2) 12(L) >=60 mL/min/1. 73m2 12/01/2024 5:01 AM [facility] Albumin 2.8(L) 3.5 - 5.0 g/dL 12/01/2024 5:01 AM [facility] Alkaline Phosphatase 61 40 - 150 U/L 12/01/2024 5:01 AM [facility] ALT 15 <=34 U/L 12/01/2024 5:01 AM [facility] Comment: ALT2 reagent used for testing does not contain P5P supplementation and therefore may miss ALT elevations in patients with B6 deficiency. This population may be as high as 10% in the [place], with risk factors including malabsorption, drug interactions, and alcoholic hepatitis. AST 26 11 - 34 U/L 12/01/2024 5:01 AM [facility] Comment: AST2 reagent used for testing does not contain P5P supplementation and therefore may miss AST elevations in patients with B6 deficiency. This population may be as high as 10% in the [place], with risk factors including malabsorption, drug interactions, and alcoholic hepatitis. Total Bilirubin 0.5 0.2 - 1.2 mg/dL 12/01/2024 5:01 AM [facility] Protein, Total 5.7(L) 6.4 - 8.3 g/dL 12/01/2024 5:01 AM [facility] Globulin 2.9 2.5 - 4.1 g/dL 12/01/2024 5:01 AM [facility] Anion Gap 13(H) 4 - 12 12/01/2024 5:01 AM [facility] A/G Ratio 1.0 0.7 - 1.9 12/01/2024 5:01 AM [facility] Osmolality Calc 309.8 mOsm/kg 5:01 AM [facility] Blood Venipuncture / Unknown 12/01/2024 4:05 AM EDT 12/01/2024 4:13 AM EDT us Timothy Bai MD LAB BLOOD ORDERABLES Final Result [facility] [address] [phone] * (ABNORMAL) Magnesium (12/01/2024 4:05 AM EDT) Pathologist [facility] Magnesium 2.7(H) 1.6 - 2.6 mg/dL 12/01/2024 4:[address] [facility] Blood Venipuncture / Unknown 12/01/2024 4:05 AM EDT 12/01/2024 4:13 AM EDT us Timothy Bai MD LAB BLOOD ORDERABLES Final Result Performing Organization Address [facility] Co de Phone Number [facility] [address] [phone] * Glucose, Nova Meter (11/30/2024 7:38 PM EDT) [facility] POC-GLUCOSE 106 70 - 110 mg/dL 11/30/2024 7:[address] [facility] Comment: In the event of poor peripheral blood flow, venous or arterial blood should be used due to the potential of erroneous results. Notified Nurse RBV Director Content Marketing [id number] 11/30/2024 7:[address] [facility] Blood WHOLE BLOOD / Unknown 11/30/2024 7:38 PM EDT 11/30/2024 7:[address] [facility] - 11/30/2024 7:39 PM EDT Director Content Marketing ID is - [id number] us Timothy Bai MD POINT OF CARE TEST ORDERAB LES Final Result Performing Organization Address [facility]/ZIP Co de Phone Number [facility] [address] [phone] * Glucose, Nova Meter (11/30/2024 6:22 PM EDT) POC-GLUCOSE 107 70 - 110 mg/dL 11/30/2024 6:[address] [facility] Comment:In the event of poor peripheral blood flow, venous or arterial blood should be used due to the potential of erroneous results. Director Content Marketing [id number] 11/30/2024 6:[address] [facility] Blood WHOLE BLOOD / Unknown 11/30/2024 6:22 PM EDT 11/30/2024 6:[address] [facility] - 11/30/2024 6:25 PM EDT Director Content Marketing ID is - [id number] us Timothy Bai MD POINT OF CARE TEST ORDERAB LES Final Result [facility] [address] [phone] * Ultrasound renal limited (11/30/2024 4:19 PM [...] dictated by SABINE Yang. us Destiney Llanes SWIFT TENDER IMG US ORDERABLES Final Res ult * [...] Ascites ATTENDING PHYSICIAN: Dr. Haseeb Gil PHYSICIAN SIDE STITCHER: Gabriel Velasco PA-C FINDINGS: After informed consent [...] Ascites ATTENDING PHYSICIAN: Dr. Haseeb Gil PHYSICIAN SIDE STITCHER: Gabriel Velasco PA-C FINDINGS: After informed consent [...] Comment g/dL 12/01/2024 7:[address] [facility] BODY FLUID TYPE Peritoneal 12/01/2024 7:[address] [facility] Body Fluid PERITONEAL FLUID / Unknown 11/30/2024 4:03 PM EDT 12/01/2024 6:[address] [facility] - 12/01/2024 7:10 AM EDT This test has been modified from the audio visual collections coordinator's instructions and its performance characteristics were determined by the laboratory. The reference intervals and other method performance specifications are unavailable for this test. It is recommended to interpret body fluid concentrations in comparison with the corresponding serum or plasma concentrations and to integrate test results into the clinical context. us Timothy Bai MD BODY FLUIDS AND STOOLS ORD ERABLES Final Result [facility] [address] [place] [id number] [phone] * Glucose, body fluid (11/30/2024 4:03 PM EDT) Glucose, Body Fluid 107 See Comment mg/dL 12/01/2024 7:[address] [facility] BODY FLUID TYPE Peritoneal 12/01/2024 7:[address] [facility] Body Fluid PERITONEAL FLUID / Unknown 11/30/2024 4:03 PM EDT 12/01/2024 6:[address] [facility] - 12/01/2024 7:10 AM EDT This test has been modified from the audio visual collections coordinator's instructions and its performance characteristics were determined by the laboratory. The reference intervals and other method performance specifications are unavailable for this test. It is recommended to interpret body fluid concentrations in comparison with the corresponding serum or plasma concentrations and to integrate test results into the clinical context. us Timothy Bai MD BODY FLUIDS AND STOOLS ORD ERABLES Final Result [facility] [address] [phone] * Body Fluid/CSF - Path Review (SJ) (11/30/2024 4:03 PM EDT) SENT TO PATHOLOGY FOR REVIEW Yes 12/03/2024 6:[address] [facility] Scan Result Mesothelial cells. MD German 12/02/2024 12/03/2024 6:[address] [facility] Peritoneal Fluid BODY FLUID / Unknown 11/30/2024 4:03 PM EDT 11/30/2024 4:33 PM EDT us Huey Hurtado MD BODY FLUIDS AND STOOLS ORDERABLE S Final Result [facility] 1 [place] [address], [facility] [phone] * DIFFERENTIAL, BODY FLUID (11/30/2024 4:03 PM EDT) Neutrophils Fluid 5 0 - 25 % 025 8:[address] [facility] Lymphocytes Fluid 46 % 025 8:[address] [facility] Unidentified Mononuclear Cells BF 49 0 - 0 % 11/30/2024 8:[address] [facility] Peritoneal Fluid BODY FLUID / Unknown 11/30/2024 4:03 PM EDT 11/30/2024 4:33 PM EDT us Huey Hurtado MD BODY FLUIDS AND STOOLS ORDERABLE S Final Result [facility] [address] [phone] * [facility] Non-Rn Private Duty Cytology (11/30/2024 4:03 PM EDT) AP RESULT See Note: [facility] Comment: [facility] [address] [place] [address] or [phone] Joe Carlos M.D., Transfer Coordinator PATIENT NAME LABORATORY NO. MARY OLIVA. [id number] AGE SEX SSN CLIENT REF # [facility] 64 1960 F [id number] 1 [facility] REQUESTING Aleksandr ATTENDING Ale[place] [address] HUEY HURTADO DATE COLLECTED DATE RECEIVED DATE REPORTED 11/30/2024 12/01/2024 12/02/2024 DIAGNOSIS: PERITONEAL FLUID: Negative for malignant cells. MICROSCOPIC DESCRIPTION: Scattered mesothelial cells and chronic inflammatory cells are present. Professional interpretation rendered by John Sanchez M.D., F.C.A.P. at [facility], [address] [place] [address]. CLINICAL HISTORY: Melena Anasarca Acute renal failure SPECIMENS SUBMITTED: PERITONEAL FLUID GROSS SPECIMEN DESCRIPTION: 40 ccs of hazy, light yellow fluid, scant sediment, received in fixative ThinPrep slides prepared. Cell block has been examined. RING ATTACHER: SVITLANA HERNANDEZ (ASCP) REVIEWED, DIAGNOSED AND ELECTRONICALLY SIGNED BY: John Sanchez M.D., F.C.A.P. CPT CODES: [id number], [id number] Peritoneal Fluid BODY FLUID / Unknown 11/30/2024 4:03 PM EDT us Huey Hurtado MD PATHOLOGY/CYTOLOGY ORDERABLES Fi nal Result [facility] [address] * Anaerobic Culture (11/30/2024 4:03 PM EDT) Result No Anaerobic growth 12/05/2024 6:[address] [facility] Peritoneal Fluid BODY FLUID / Unknown 11/30/2024 4:03 PM EDT 11/30/2024 4:[address] [facility] - 12/05/2024 6:34 AM EDT Specimen Description: peritoneal fluid us Huey Hurtado MD MICROBIOLOGY - GENERAL ORDERABLE S Final Result Performing Organization Address [facility]/ZIP Co de Phone Number [facility] [address] [phone] * Body Fluid Culture + Gram Stain (11/30/2024 4:03 PM EDT) Result No growth 12/03/2024 9:[address] [facility] Gram Stain Result No organisms seen 12/03/2024 9:[address] [facility] Gram Stain Result No cells seen 12/03/2024 9:[address] [facility] Peritoneal Fluid BODY FLUID / Unknown 11/30/2024 4:03 PM EDT 11/30/2024 4:[address] [facility] - 12/03/2024 9:07 AM EDT Specimen Description: peritoneal fluid Result Archana Hurtado MD MICROBIOLOGY - GENERAL ORDERABLE S Final Result Performing Organization Address [facility]/ZIP Co de Phone Number [facility] [address] [phone] * (ABNORMAL) Body fluid cell count with differential (11/30/2024 4:03 PM EDT) Appearance Cloudy(A) Clear 11/30/2024 8:[address] [facility] Color Yellow 11/30/2024 8:[address] [facility] BODY FLUID TYPE Peritoneal 11/30/2024 8:[address] [facility] Auto WBC/Nucleated Cells BF 85 /uL 11/30/2024 8:[address] [facility] Comment: Please refer to specific WBC/Nucleated Cell Count Body Fluid reference ranges below: For Pleural: 0-1000 Peritoneal: 0-1000 Pericardial:0-1000 Synovial: 0-200 Auto RBC BF <3,000 /uL 11/30/2024 8:[address] [facility] Comment: Please refer to specific RBC Cell Count Body Fluid reference ranges below: Pleural: 0-10,000 Peritoneal: 0-10,000 Pericardial:0-10,000 Synovial:0-30 Peritoneal Fluid BODY FLUID / Unknown 11/30/2024 4:03 PM EDT 11/30/2024 4:[address] [facility] - 11/30/2024 8:49 PM EDT There is normally no readily obtainable pleural, peritoneal and pericardial fluid, hence normal elements for these potential fluids are not defined. Huey Hurtado MD BODY FLUIDS AND STOOLS ORDERABLE S Final Result [facility] [address] [phone] * Lactate dehydrogenase (LDH), body fluid (11/30/2024 4:03 PM EDT) LDH, Fluid 71 See Comment U/L 11/30/2024 6:[address] [facility] BODY FLUID TYPE Peritoneal 11/30/2024 6:[address] [facility] Peritoneal Fluid BODY FLUID / Unknown 11/30/2024 4:03 PM EDT 11/30/2024 4:[address] [facility] - 11/30/2024 6:19 PM EDT This test has been modified from the audio visual collections coordinator's instructions and its performance characteristics were determined [...] ORDERABLE S Final Result Performing Organization Address [facility] Phone Number [facility] [address] [phone] * Protein / creatinine ratio, urine (11/30/2024 11:35 AM EDT) Creatinine, Ur 62.00 47.00 - 110.00 mg/dL 11/30/2024 12:[address] [facility] Protein Creatinine Ratio 0.19 <=0.20 11/30/2024 12:[address] [facility] Protein, Urine 12 1 - 14 mg/dL 11/30/2024 12:[address] [facility] Urine 11/30/2024 11:3 5 AM EDT 11/30/2024 12:15 PM EDT us Hill Boo MD URINE ORDERABLES Final Result Performing Organization Address [facility] Phone Number [facility] [address] [phone] * Urea Nitrogen, random urine (11/30/2024 11:35 AM EDT) Urea Nitrogen, Ur 305 mg/dL 11/30/2024 12:[address] [facility] Comment:Reference Range not established Urine 11/30/2024 11:3 5 AM EDT 11/30/2024 12:15 PM EDT us Hill Boo MD URINE ORDERABLES Final Result Performing Organization Address [facility]/ZIP Co de Phone Number [facility] [address] [phone] * Sodium, random urine (11/30/2024 11:35 AM EDT) Sodium Urine 83 See Comment meq/L 11/30/2024 12:[address] [facility] Comment:Reference Range not established Urine 11/30/2024 11:3 5 AM EDT 11/30/2024 12:15 PM EDT us Hill Boo MD URINE ORDERABLES Final Result Performing Organization Address [facility]/ZIP Co de Phone Number [facility] [address] [phone] * (ABNORMAL) Urinalysis Microscopic Only (11/30/2024 11:35 AM EDT) WBC, UA 21-50(A) None Seen /HPF 11/30/2024 12:[address] [facility] RBC, UA 0-2(A) None Seen /HPF 11/30/2024 12:[address] [facility] Bacteria, UA 1+(A) None Seen, Trace 11/30/2024 12:[address] [facility] Mucus 1+(A) None Seen 11/30/2024 12:[address] [facility] SQUAMOUS EPITHELIAL 3-5(A) None Seen /HPF 11/30/2024 12:[address] [facility] HYALINE CASTS 21-50(A) None Seen /LPF 11/30/2024 12:[address] [facility] Urine URINE SPECIMEN COLLECTION, CLEAN CATCH / Unknown 11/30/2024 11:35 AM EDT 11/30/2024 11:41 AM EDT us Destiney Llanes APRN URINE ORDERABLES Final Resu lt Performing Organization Address City/[facility]/ZIP Co de Phone Number [facility] [address] [phone] * Urine Culture (11/30/2024 11:35 AM EDT) Result Recollect Specimen - 3 or more organisms suggests contamination 12/01/2024 6:[address] [facility] Urine URINE SPECIMEN COLLECTION, CLEAN CATCH / Unknown 11/30/2024 11:35 AM EDT 11/30/2024 11:41 AM EDT Destiney Llanes SWIFT TENDER MICROBIOLOGY - GENERAL ORDE YAKELIN Final Result [facility] [address] [phone] * (ABNORMAL) Urinalysis, Reflex Microscopic and Culture If Indicated (11/30/2024 11:35 AM EDT) Color, UA Light Yellow 11/30/2024 12:[address] [facility] Clarity, UA Turbid(A) Clear 11/30/2024 12:[address] [facility] Specific Nice, UA 1.011 1.005 - 1.030 11/30/2024 12:[address] [facility] pH, UA 5.0(L) 6.0 - 8.0 11/30/2024 12:[address] [facility] Leukocytes, UA 500 Félix/uL(A) Negative 11/30/2024 12:[address] [facility] Nitrite, UA Negative Negative 11/30/2024 12:[address] [facility] Protein, UA Negative Negative 11/30/2024 12:[address] [facility] Glucose, UA Normal Normal 11/30/2024 12:[address] [facility] Ketones, UA Negative Negative 11/30/2024 12:[address] [facility] Bilirubin, UA Negative Negative 11/30/2024 12:[address] [facility] Blood, UA Negative Negative 11/30/2024 12:[address] [facility] Urobilinogen, UA Normal Normal 11/30/2024 12:[address] [facility] Specimen Source Urine, Clean Catch 11/30/2024 12:[address] [facility] Urine URINE SPECIMEN COLLECTION, CLEAN CATCH / Unknown 11/30/2024 11:35 AM EDT 11/30/2024 11:41 AM EDT us Destiney Llanes APRN URINE ORDERABLES Final Resu lt [facility] [address] [phone] * XR chest AP portable (11/30/2024 11:29 AM EDT) Anatomical Region Laterality Modality Chest X-Ray 11/30/2024 12:1 5 PM EDT Impressions 11/30/2024 12:20 PM EDT Prominent interstitial changes are likely secondary to vascular congestion. Continued follow-up is recommended. Images reviewed, interpreted, and dictated by Dr. Jose C Cahloun. Transcribed by Marielos Sotelo PA-C. Narrative 11/30/2024 [...] Destiney Llanes APRN IMG DIAGNOSTIC IMAGING [facility] Final Result * (ABNORMAL) Monoclonal Protein Study, Expanded Panel(SENDOUT) (11/30/2024 11:01 AM EDT) [facility] Total Protein, Serum 6.2(L) 6.3 - 8.2 g/dL 12/03/2024 12:57 PM EDT [facility] Albumin 2.71(L) 3.75 - 5.01 g/dL 12/03/2024 12:57 PM EDT [facility] Alpha 1 Globulin 0.34 0.19 - 0.46 g/dL 12/03/2024 12:57 PM EDT [facility] Alpha 2 Globulin 0.38(L) 0.48 - 1.05 g/dL 12/03/2024 12:57 PM EDT [facility] Beta Globulin 1.30(H) 0.48 - 1.10 g/dL 12/03/2024 12:57 PM EDT [facility] Gamma 1.47 0.62 - 1.51 g/dL 12/03/2024 12:57 PM EDT [facility] Immunofixation MAEGAN Done 12/03/2024 12:57 PM T [facility] Immunoglobulin G 1484 768 - 1632 mg/dL 12/03/2024 12:57 PM EDT [facility] Immunoglobulin A 686(H) 68 - 408 mg/dL 12/03/2024 12:57 PM T [facility] Immunoglobulin M 126 35 - 263 mg/dL 12/03/2024 12:57 PM EDT [facility] Monoclonal Protein Not Applicable <=0.00 g/dL 12/03/2024 12:57 PM EDT [facility] [place] Qnt Free Light Chains 173.10(H) 3.30 - 19.40 mg/L 12/03/2024 12:57 PM T [facility] Comment: INTERPRETIVE INFORMATION: [place] Qnt Free Light Chains Undetected antigen excess is a rare event but cannot be excluded. Free light chain results should always be interpreted in conjunction with other clinical and laboratory findings. [place] Qnt Free Light Chains 123.84(H) 5.71 - 26.30 mg/L 12/03/2024 12:57 PM T [facility] Comment: INTERPRETIVE INFORMATION: Lambda Qnt Free Light Chains Undetected antigen excess is a rare event but cannot be excluded. Free light chain results should always be interpreted in conjunction with other clinical and laboratory findings. [place]/Lambda Free Light Chain Ratio 1.40 0.26 - 1.65 12/03/2024 12:57 PM EDT [facility] SPEP/MAEGAN Interpretation See Note 12/03/2024 12:57 PM EDT [facility] Comment: Restricted band in the beta region [...] Serum See Note 12/03/2024 12:57 PM EDT [facility] Comment: Authorized individuals can access the [facility] Enhanced Report with an [facility] Connect account using the following link. Your local lab can assist you in obtaining the patient report if you don't have a Connect account. [email or web address] Performed By: [employer] [address] [place] [address] Optometrist: Lalo Mortensen MD, PhD CLIA Number: [id number] Blood Venipuncture / Unknown 11/30/2024 11:01 AM EDT 11/30/2024 12:17 PM EDT Hill Boo MD LAB BLOOD ORDERABLES Final Resu lt [facility] [address] [place] [address], [facility] [phone] * Alpha Fetoprotein Tumor Marker(SENDOUT) (11/30/2024 11:01 AM EDT) Alpha Fetoprotein Tumor Marker 2 0 - 9 ng/mL 12/01/2024 3:41 PM EDT [facility] Comment: INTERPRETIVE INFORMATION: Alpha Fetoprotein Tumor Marker The Stefany Sproul Access DxI AFP method is used. Results [...] reference intervals for this test in the [facility] Test Directory (Enersave). Performed By: [employer] [address] [place] [address] Optometrist: Lalo Mortensen MD, PhD CLIA Number: [id number] Blood Venipuncture / Unknown 11/30/2024 11:01 AM EDT 11/30/2024 11:06 AM EDT us Destiney Llanes APRN LAB BLOOD ORDERABLES Final Result [facility] [employer] [address] [place] [address] * Glucose, Nova Meter (11/30/2024 10:46 AM EDT) [facility] POC-GLUCOSE 102 70 - 110 mg/dL 11/30/2024 10:[address] [facility] Comment: In the event of poor peripheral blood flow, venous or arterial blood should be used due to the potential of erroneous results. Notified Nurse RBV Director Content Marketing [phone] 11/30/2024 10:[address] [facility] Blood WHOLE BLOOD / Unknown 11/30/2024 10:46 AM EDT 11/30/2024 10:[address] [facility] - 11/30/2024 10:47 AM EDT Director Content Marketing ID is - [id number] us Timothy Bai MD POINT OF CARE TEST ORDERAB LES Final Result [facility] [address] [phone] * (ABNORMAL) Vitamin D, 25-Hydroxy (11/30/2024 8:20 AM EDT) Vitamin D 25-Hydroxy 22.0(L) 30 - 80 ng/mL 11/30/2024 9:[address] [facility] Blood Venipuncture / Unknown 11/30/2024 8:20 AM EDT 11/30/2024 9:08 AM EDT Timothy Bai MD LAB BLOOD ORDERABLES Final Result [facility] [address] [phone] * Hemoglobin A1c (11/30/2024 8:20 AM EDT) Hemoglobin A1C 4.9 4.0 - 5.6 % 11/30/2024 9:[address] [facility] Comment: Hemoglobin A1C levels are related to mean glucose during the preceding 2-3 months. Less than 7% demonstrates glycemic control in diabetic patients. Hemoglobin AlC % Suggested Diagnosis > or = 6.5 Diabetic 5.7 - 6.4 Prediabetic <5.7 Non-diabetic eAVG Glucose 93.93 70 - 126 mg/dL 11/30/2024 9:[address] [facility] Blood Venipuncture / Unknown 11/30/2024 8:20 AM EDT 11/30/2024 9:07 AM EDT us Huey Hurtado MD LAB BLOOD ORDERABLES Final Resul t [facility] [address] [phone] * ECHO COMPLETE (DOPPLER / COLOR) WO CONTRAST (11/30/2024 7:50 AM EDT) Anatomical Region Laterality Modality Heart Vascular Ultraso und 11/30/2024 7:25 AM EDT Narrative 11/30/2024 10:46 AM EDT TRANSTHORACIC ECHOCARDIOGRAPHY REPORT Demographics Patient Name: RIN JONES : 1960 Age: 64 year(s) Corporate ID Number: [id number] Gender Female Audio Director: Giovanna Rock Height: [address] Referring Physician: HUEY HURTADO Weight: 225 pounds Interpreting JESSICA RAYMOND MD BMI: 35.24 kg/m^2 Physician: Date of Service: 11/30/2024 Blood Pressure: 118/59 mmHg Room Number: 579 Type of Study: TTE procedure: ECHO COMPLETE (DOPPLER / COLOR) W OR WO CONTRAST. Patient Status: Routine IP [facility] History/Tech Notes: Indication: shortness [...] 1.35 m/s E/A ratio: 0.97 m/s Volume ppshdfxic551.99 LV length: 8.51 cm ml Volume knlizaau95.96 ml LVOT diameter: 1.79 cm Normal sized [...] Valve TR velocity: 2.51 m/s TR gradient: 25.55844 mmHg Estimated RAP: 3 mmHg RVSP: 28.12 [...] 1960 Age: 64 year(s) Corporate ID Number: [id number] Gender Female Audio Director: Giovanna Pranav Height: 67 inches [facility] Referring Physician: HUEY HURTADO Weight: 225 pounds Interpreting JESSICA RAYMOND MD BMI: 35.24 kg/m^2 Physician: Date of Service: 11/30/2024 Blood Pressure: 118/59 mmHg Room Number: 579 Type of Study: TTE procedure: ECHO COMPLETE (DOPPLER / COLOR) W OR WO CONTRAST. Patient Status: Routine IP [facility] History/Tech Notes: Indication: [...] 1.35 m/s E/A ratio: 0.97 m/s Volume jyhkpnoaa510.99 LV length: 8.51 cm ml Volume vvkumjlr11.96 ml LVOT diameter: 1.79 cm Normal sized [...] Valve TR velocity: 2.51 m/s TR gradient: 25.72481 mmHg Estimated RAP: 3 mmHg RVSP: 28.12 [...] 110 mg/dL 11/30/2024 5:[address] [facility] Comment: In the event of poor peripheral blood flow, venous or arterial blood should be used due to the potential of erroneous results. Protocols Followed Director Content Marketing [id number] 11/30/2024 5:[address] [facility] Blood WHOLE BLOOD / Unknown 11/30/2024 5:13 AM EDT 11/30/2024 5:[address] [facility] - 11/30/2024 5:17 AM EDT Director Content Marketing ID is - [id number] us Albert Garcia MD POINT OF CARE TEST ORDERABLES Fi nal Result Performing Organization Address [facility]/ZIP Co de Phone Number [facility] [address] [phone] * Blood Culture (11/30/2024 3:42 AM EDT) Result No growth in 5 days 12/05/2024 5:[address] [facility] Blood ENTIRE RIGHT UPPER ARM / Unknown Venipuncture / Unknown 11/30/2024 3:42 AM EDT 11/30/2024 4:09 AM EDT us Huey Hurtado MD MICROBIOLOGY - GENERAL ORDERABLE S Final Result [facility] [address] [phone] * Folate, Serum (11/30/2024 3:40 AM EDT) Folate 7.0 7.0 - 31.4 ng/mL 11/30/2024 6:[address] [facility] Blood Venipuncture / Unknown 11/30/2024 3:40 AM EDT 11/30/2024 4:09 AM EDT us Laura Rangel MD LAB BLOOD ORDERABLES Final Res ult [facility] [address] [phone] * (ABNORMAL) Iron and TIBC (11/30/2024 3:40 AM EDT) Iron 63 50 - 170 ug/dL 11/30/2024 6:[address] [facility] TIBC 183(L) 250 - 435 ug/dL 11/30/2024 6:[address] [facility] % Saturation 34 % 11/30/2024 6:[address] [facility] UIBC 120 11/30/2024 6:[address] [facility] Blood Venipuncture / Unknown 11/30/2024 3:40 AM EDT 11/30/2024 4:09 AM EDT us Laura Rangel MD LAB BLOOD ORDERABLES Final Res ult [facility] [address] [phone] * Ferritin (11/30/2024 3:40 AM EDT) Ferritin 168.51 4.63 - 204.00 ng/mL 11/30/2024 6:[address] [facility] Blood Venipuncture / Unknown 11/30/2024 3:40 AM EDT 11/30/2024 4:09 AM EDT us Laura Rangel MD LAB BLOOD ORDERABLES Final Res ult Performing Organization Address [facility] Co de Phone Number [facility] [address] [phone] * (ABNORMAL) Lactate dehydrogenase (LDH) (11/30/2024 3:40 AM EDT) LDH 261(H) 125 - 220 U/L 11/30/2024 12:[address] [facility] Blood Venipuncture / Unknown 11/30/2024 3:40 AM EDT 11/30/2024 4:09 AM EDT us Hill Boo MD LAB BLOOD ORDERABLES Final Resu lt Performing Organization Address [facility] Co de Phone Number [facility] [address] [phone] * (ABNORMAL) Creatine Kinase (CK) (11/30/2024 3:40 AM EDT) Total CK 356(H) 29 - 168 U/L 11/30/2024 12:[address] [facility] Blood Venipuncture / Unknown 11/30/2024 3:40 AM EDT 11/30/2024 4:09 AM EDT us Hlil Boo MD LAB BLOOD ORDERABLES Final Resu lt Performing Organization Address [facility] Co de Phone Number [facility] [address] [phone] * (ABNORMAL) Uric acid (11/30/2024 3:40 AM EDT) Uric Acid 11.2(H) 2.5 - 6.2 mg/dL 11/30/2024 12:[address] [facility] Blood Venipuncture / Unknown 11/30/2024 3:40 AM EDT 11/30/2024 4:09 AM EDT us Hill Boo MD LAB BLOOD ORDERABLES Final Resu lt Performing Organization Address [facility]/ZIP Co de Phone Number [facility] [address] [phone] * Vitamin B12 (11/30/2024 3:40 AM EDT) Pathologist [facility] Vitamin B12 678 213 - 816 pg/mL 11/30/2024 8:[address] [facility] Blood Venipuncture / Unknown 11/30/2024 3:40 AM EDT 11/30/2024 4:09 AM EDT Tiomthy Bai MD LAB BLOOD ORDERABLES Final Result Performing Organization Address [facility]/ZIP Co de Phone Number [facility] [address] [phone] * Iron, serum (11/30/2024 3:40 AM EDT) Pathologist [facility] Iron 64 50 - 170 ug/dL 11/30/2024 8:[address] [facility] Blood Venipuncture / Unknown 11/30/2024 3:40 AM EDT 11/30/2024 4:09 AM EDT Timothy Bai MD LAB BLOOD ORDERABLES Final Result Performing Organization Address [facility]/ZIP Co de Phone Number [facility] [address] [phone] * (ABNORMAL) CBC - Hemogram (SJ-BKR) (11/30/2024 3:40 AM EDT) Pathologist [facility] WBC 1.9(LL) 4.0 - 10.0 K/ L 11/30/2024 4:[address] [facility] RBC 2.63(L) 3.93 - 5.22 M/ L 11/30/2024 4:[address] [facility] Hemoglobin 8.2(L) 11.2 - 15.7 GM/DL 11/30/2024 4:[address] [facility] Hematocrit 26.3(L) 34.1 - 44.9 % 11/30/2024 4:[address] [facility] MCV 100(H) 79 - 95 fL 11/30/2024 4:[address] [facility] MCH 31.2 25.6 - 32.2 pg 11/30/2024 4:[address] [facility] MCHC 31.2(L) 32.2 - 35.5 GM/DL 11/30/2024 4:[address] [facility] RDW 16.2(H) 11.7 - 14.4 % 11/30/2024 4:[address] [facility] Platelets 64(L) 140 - 375 K/CU MM 11/30/2024 4:[address] [facility] MPV 10.4 9.4 - 12.3 fL 11/30/2024 4:[address] [facility] Blood Venipuncture / Unknown 11/30/2024 3:40 AM EDT 11/30/2024 4:10 AM EDT us Huey Hurtado MD LAB BLOOD ORDERABLES Final Resul t [facility] [address] [phone] * (ABNORMAL) Comprehensive Metabolic Panel (11/30/2024 3:40 AM EDT) Sodium 144 136 - 145 meq/L 11/30/2024 5:[address] [facility] Potassium 4.6 3.4 - 5.1 meq/L 11/30/2024 5:[address] [facility] Chloride 115(H) 98 - 112 meq/L 11/30/2024 5:[address] [facility] CO2 20(L) 22 - 29 meq/L 11/30/2024 5:07 AM [facility] Calcium 8.3(L) 8.4 - 10.2 mg/dL 11/30/2024 5:07 AM [facility] Glucose 86 82 - 115 mg/dL 11/30/2024 5:07 AM [facility] BUN 74.2(H) 9.8 - 20.1 mg/dL 11/30/2024 5:07 AM [facility] Creatinine 4.15(H) 0.57 - 1.11 mg/dL 11/30/2024 5:07 AM [facility] BUN/Creatinine 18 8 - 20 11/30/2024 5:07 AM [facility] eGFR (mL/min/1.73m2) 12(L) >=60 mL/min/1. 73m2 11/30/2024 5:07 AM [facility] Albumin 2.2(L) 3.5 - 5.0 g/dL 11/30/2024 5:07 AM [facility] Alkaline Phosphatase 83 40 - 150 U/L 11/30/2024 5:07 AM [facility] ALT 17 <=34 U/L 11/30/2024 5:07 AM [facility] Comment: ALT2 reagent used for testing does not contain P5P supplementation and therefore may miss ALT elevations in patients with B6 deficiency. This population may be as high as 10% in the [place], with risk factors including malabsorption, drug interactions, and alcoholic hepatitis. AST 43(H) 11 - 34 U/L 11/30/2024 5:07 AM [facility] Comment: AST2 reagent used for testing does not contain P5P supplementation and therefore may miss AST elevations in patients with B6 deficiency. This population may be as high as 10% in the [place], with risk factors including malabsorption, drug interactions, and alcoholic hepatitis. Total Bilirubin 0.8 0.2 - 1.2 mg/dL 11/30/2024 5:07 AM [facility] Protein, Total 6.5 6.4 - 8.3 g/dL 11/30/2024 5:07 AM [facility] Globulin 4.3(H) 2.5 - 4.1 g/dL 11/30/2024 5:[address] [facility] Anion Gap 14(H) 4 - 12 11/30/2024 5:[address] [facility] A/G Ratio 0.5(L) 0.7 - 1.9 11/30/2024 5:[address] [facility] Osmolality Calc 308.1 mOsm/kg 5:[address] [facility] Blood Venipuncture / Unknown 11/30/2024 3:40 AM EDT 11/30/2024 4:09 AM EDT us Huey Hurtado MD LAB BLOOD ORDERABLES Final Resul t Performing Organization Address [facility] Co de Phone Number [facility] [address] [phone] * Procalcitonin (11/30/2024 3:40 AM EDT) Procalcitonin 0.26 See Comment ng/mL 11/30/2024 5:[address] [facility] Comment: Sepsis comment <0.5 Antibiotics [...] ORDERABLES Final Resul t Performing Organization Address City/[facility]/ZIP Co de Phone Number [facility] [address] [phone] * Blood Culture (11/30/2024 3:40 AM EDT) Result No growth in 5 days 12/05/2024 5:[address] [facility] Blood ENTIRE LEFT UPPER ARM / Unknown Venipuncture / Unknown 11/30/2024 3:40 AM EDT 11/30/2024 4:09 AM EDT us Huey Hurtado MD MICROBIOLOGY - GENERAL ORDERABLE S Final Result Performing Organization Address City/[facility]/ZIP Co de Phone Number [facility] [address] [phone] * Ammonia (11/30/2024 3:40 AM EDT) Ammonia 59 18 - 72 mol/L 11/30/2024 4:[address] [facility] Blood Venipuncture / Unknown 11/30/2024 3:40 AM EDT 11/30/2024 4:10 AM EDT us Huey Hurtado MD LAB BLOOD ORDERABLES Final Resul t Performing Organization Address [facility] Co de Phone Number [facility] [address] [phone] * (ABNORMAL) Magnesium (11/30/2024 3:40 AM EDT) Magnesium 2.7(H) 1.6 - 2.6 mg/dL 11/30/2024 5:[address] [facility] Blood Venipuncture / Unknown 11/30/2024 3:40 AM EDT 11/30/2024 4:09 AM EDT us Huey Hurtado MD LAB BLOOD ORDERABLES Final Resul t Performing Organization Address [facility] Co de Phone Number [facility] [address] [phone] * Lactic Acid with reflex (11/30/2024 3:40 AM EDT) Lactic Acid Level (mmol/L) 0.9 0.5 - 2.2 mmol/L 11/30/2024 5:[address] [facility] Blood Venipuncture / Unknown 11/30/2024 3:40 AM EDT 11/30/2024 4:10 AM EDT us Huey Hurtado MD LAB BLOOD ORDERABLES Final Resul t Performing Organization Address City/[facility] Co de Phone Number [facility] [address] [phone] * aPTT (11/30/2024 3:40 AM EDT) aPTT 27.7 22.0 - 32.0 seconds 11/30/2024 4:[address] [facility] Blood Venipuncture / Unknown 11/30/2024 3:40 AM EDT 11/30/2024 4:10 AM EDT us Huey Hurtado MD LAB BLOOD ORDERABLES Final Resul t Performing Organization Address [facility]/ZIP Co de Phone Number [facility] [address] [phone] * (ABNORMAL) Prothrombin time/INR (11/30/2024 3:40 AM EDT) Protime 12.9(H) 9.0 - 12.0 seconds 11/30/2024 4:[address] [facility] INR 1.17(H) 0.80 - 1.10 11/30/2024 4:[address] [facility] Comment: Recommended therapeutic ranges using [...] LAB BLOOD ORDERABLES Final Resul t [facility] [address] [place] [address], [facility] [phone] * EKG-SCANNED (11/30/2024) Narrative 11/30/2024 Ordered by [...] 200 mg Daily, oral, First dose on 12/04/25 at 1130 Given 12/14/2024 9:30 AM EDT [...] Blood Sugar is less than 180 beteween 5710-4246, DO NOT give corrective insulin unless otherwise [...] Olimpia Mcmillan, DAYANARA) 0930 (Given - Provider: Olipmia Mcmillan, DAYANARA) atorvastatin (LIPITOR) tablet 20 mg [...] Lou Sidhu, RN)2144 (Given - Provider: Alberto Bernal, RN) 0903 (Given - Provider: Olimpia Mcmillan, [...] Blood Sugar is less than 180 beteween 7868-1043, DO NOT give corrective insulin unless otherwise [...] Mcmillan RN)1648 (Given - Provider: Olimpia Mcmillan RN)203 (Given - Provider: Jamal Lopez, DAYANARA) 0647 [...] Lopez, DAYANARA) 0931 (Given - Provider: Olimpia Mcmillan RN) rifAXIMin (XIFAXAN) tablet 550 mg 550 [...] flush documented in this encounter Care Teams Rotoformer Backtender Relationship Specialty Start Date End Date [facility], [facility] [place] [address] PCP - General 11/30/24 12/13/24 documented as of this encounter
--- OUTSIDE RECORDS SUMMARY | 2025-01-10 10:33 | XMS_ITS | Referral Summary ---
Author Organization [employer] In [employer]atives Address [address] [place] [address] Care Team Providers Care Consulting Sales Manager Name Role Phone Provider, Not In System Primary Care Provider Un available Encounters Date Type Department Care Team Description 11/30/2024 1:43 AM EDT - 12/14/2024 5:30 PM EDT Hospital Encounter [facility] 5B Medical Telemetry Unit 1 [place] [address] Albert Garcia MD Shamsulddin, Haider, MD Zohary, Yasser, MD Majeed, Irfan, MD Edie, QUIQUE Thomas Enoch, MD Melena (Primary Dx); Anasarca Discharge Disposition: Home or Self Care 12/06/2024 Telephone [facility] - [place] [address] [place] [address] Mimi Moreno, DAYANARA Appointment 12/01/2024 8:55 AM EDT Anesthesia Event [facility] Endoscopy [address] [place] [address] Isabell-Ashtyn Rowley MD 12/01/2024 9:19 AM EDT - 12/01/2024 9:50 AM EDT Surgery [facility] Endoscopy [address] [place] [address] Scott Daley MD EGD, WITH FOREIGN BODY REMOVAL 11/30/2024 Travel from Last 3 Months Allergies No known active allergies Medications hydrOXYzine pamoate (VISTARIL) 50 MG capsule Take 1 capsule (50 mg total) by mouth every night as needed for itching (sleep) Look-alike/ Sound-alike medication. Active ammonium lactate (AMLACTIN) 12 % [...] (six) hours as needed for wheezing. Active HYDROcodone-ac etaminophen (NORCO) 10-325 mg per tablet Take 1 tablet by mouth every 6 (six) hours as needed for pain. Max Daily Amount: 4 tablets Active lactulose (CHRONULAC) 10 gram/15 mL solution [...] as needed. 30 tablet 12/15/19 25 Active spironolactone (ALDACTONE) 25 MG tablet Take 0.5 tablets (12.5 mg total) by mouth daily. 15 tablet 12/15/19 25 Active tamsulosin (FLOMAX) 0.4 mg cap 24 hr capsule Take 1 capsule (0.4 mg total) by mouth every evening for 30 days. 30 capsule 12/15/19 25 025 Active clopidogreL (PLAVIX) 75 mg tablet Take 1 tablet (75 mg total) by mouth daily Look-alike/ Sound-alike medication. 025 Discontinued(St op Taking at Discharge) bisoprolol (ZEBETA) 10 MG tablet Take 1 tablet (10 mg total) by mouth 2 (two) times daily. Discontinued(St op Taking at Discharge) cholecalcifero l (VITAMIN D3) 125 mcg (5,000 unit) tablet Take 2 tablets (10,000 Units total) by mouth daily. Discontinued(St op Taking at Discharge) furosemide (LASIX) 40 MG tablet Take 1 tablet (40 mg total) by mouth 2 (two) times daily. Discontinued(St op Taking at Discharge) aspirin 81 MG chewable tablet Take 1 tablet (81 mg total) by mouth daily. Discontinued(St op Taking at Discharge) colestipoL (COLESTID) 1 gram tablet Take 2 tablets (2 g total) by mouth daily. Discontinued(St op Taking at Discharge) dicyclomine (BENTYL) 10 MG capsule Take 1 capsule (10 mg total) by mouth 2 (two) times daily. Discontinued(St op Taking at Discharge) amiodarone (PACERONE) 200 MG tablet Take 1 tablet (200 mg total) by mouth daily for 30 days. 30 tablet 12/08/19 ergocalciferol (DRISDOL) 1,250 mcg (50,000 unit) capsule Take 1 capsule (50,000 Units total) by mouth every 7 days for 30 days. 4 capsule 12/08/19 amoxicillin-cl avulanate (AUGMENTIN) 500-125 mg per tablet Take 1 tablet by mouth 2 (two) times daily for 7 days. 14 tablet 12/07/19 25 025 Discontinued(St op Taking at Discharge) pantoprazole (PROTONIX) 40 MG tablet Take 1 tablet (40 mg total) by mouth 2 (two) times daily for 30 days. 60 tablet 12/07/19 25 025 gabapentin (NEURONTIN) 100 MG capsule Take 2 capsules (200 mg total) by mouth 3 (three) times daily for 3 days. Max Daily Amount: 600 mg 12/08/19 25 025 Discontinued bumetanide (BUMEX) 1 MG tablet Take 1 tablet (1 mg total) by mouth 2 (two) times daily. 12/09/19 025 Discontinued(St op Taking at Discharge) spironolactone (ALDACTONE) 25 MG tablet Take 0.5 [...] the past 12 months, has t he [employer], [employer], or water [employer] threatened to shut off services in your [...] Do you speak a language other than [place] at [facility]? No 11/30/2024 Do you want [...] Description 01/27/2025 10:45 AM EDT Office Visit [facility] Electrophysiology [address] [place] [address] Deysi Jon MD [address] [place] [address] [address] [place] [address] Procedures Procedure Name Priority Date/Time Associated Diagnosis [...] POC Routine 12/13/2024 5:46 AM EDT [facility] CBC SCAN Routine 12/13/2024 3:15 AM EDT [...] POC Routine 12/12/2024 5:43 AM EDT [facility] CBC SCAN Routine 12/12/2024 3:47 AM EDT [...] ANESTHESIA INTUBATION Routine 12/01/2024 9:01 AM EDT [place] EGD FLEXIBLE FOREIGN BODY REMOVAL 12/01/2024 8:55 [...] PARACENTESIS Routine 11/30/2024 4:17 PM EDT CYTOLOGY ([facility]) AP Routine 11/30/2024 4:03 PM EDT Melena PROTEIN, BODY FLUID Routine 11/30/2024 4 :03 PM EDT GLUCOSE, BODY FLUID Routine 11/30/2024 4 :03 PM EDT BODY FLUID/CSF- PATH REVIEW LAB ONLY ([facility]) Routine 11/30/2024 4:03 PM EDT Melena [facility] DIFFERENTIAL, BODY FLUID Routine 11/30/2024 4:03 [...] of63 resultswithin the time period is included. [facility] Signature POC-GLUCOSE 203(H) 70 - 110 mg/dL 12/14/2024 3:42 PM EDT [facility] Comment: In the event of poor peripheral blood flow, venous or arterial blood should be used due to the potential of erroneous results. Notified Nurse RBV Slasher Tender Helper [phone] 12/14/2024 3:42 PM EDT [facility] Blood WHOLE BLOOD / Unknown 12/14/2024 3:41 PM EDT 12/14/2024 3:42 PM EDT Narrative [facility] - 12/14/2024 3:42 PM EDT Slasher Tender Helper ID is - [id number] us David Coffman PA-C POINT OF CARE TEST ORDERABLES Final Result [facility] [address] [phone] * ECG 12 lead (12/14/2024 9:10 AM EDT) Only the most recent of13 resultswithin the time period is included. [facility] VENTRICULAR RATE EKG/MIN 89 BPM GE MUSE ATRIAL RATE (MCT) 89 BPM GE MUSE NV Interval 146 ms GE MUSE QRS-INTERVAL (MSEC) 86 ms GE MUSE QT Interval 432 ms GE MUSE QTC Interval 525 ms GE MUSE P [place] 34 degrees GE MUSE R AXIS (MCT) -13 degrees GE MUSE T [place] -2 degrees GE MUSE [place] Diagnosis Normal sinus rhythm Septal infarct (cited on or before 14-DEC-2024 ) Confirmed by DEYSI JON M.D. ([id number]) on 12/14/2024 5:07:26 PM GE MUSE 12/14/2024 9:10 AM EDT 12/14/2024 5:07 PM EDT Deysi Jon MD ECG ORDERABLES Final Result GE MUSE * (ABNORMAL) CBC with automated diff (12/14/2024 2:54 AM EDT) Only the most recent of7 resultswithin the time period is included. [facility] WBC 1.4(LL) 4.0 - 10.0 K/ L 12/14/2024 3:45 AM EDT [facility] RBC 2.45(L) 3.93 - 5.22 M/ L 12/14/2024 3:45 AM EDT [facility] Hemoglobin 7.6(L) 11.2 - 15.7 GM/DL 12/14/2024 3:45 AM EDT [facility] Hematocrit 24.1(L) 34.1 - 44.9 % 12/14/2024 3:45 AM EDT [facility] MCV 98(H) 79 - 95 fL 12/14/2024 3:45 AM EDT [facility] MCH 31.0 25.6 - 32.2 pg 12/14/2024 3:45 AM EDT [facility] MCHC 31.5(L) 32.2 - 35.5 GM/DL 12/14/2024 3:45 AM EDT [facility] RDW 16.3(H) 11.7 - 14.4 % 12/14/2024 3:45 AM EDT [facility] Platelets 51(L) 140 - 375 K/CU MM 12/14/2024 3:45 AM EDT [facility] MPV 12.3 9.4 - 12.3 fL 12/14/2024 3:45 AM EDT [facility] % Neutros 54 34 - 71 % 12/14/2024 3:45 AM EDT [facility] % Lymphs 32 19 - 52 % 12/14/2024 3:45 AM EDT [facility] % Monos 14(H) 5 - 13 % 12/14/2024 3:45 AM EDT [facility] % Eos 0(L) 1 - 6 % 12/14/2024 3:45 AM EDT [facility] % Baso 1 0 - 1 % 12/14/2024 3:45 AM EDT [facility] NRBC Absolute <0.01 0 - 0.012 K/ul 12/14/2024 3:45 AM EDT [facility] # Neutros 0.76(L) 1.56 - 6.13 K/ L 12/14/2024 3:45 AM EDT [facility] # Lymphs 0.45(L) 1.18 - 3.74 K/ L 12/14/2024 3:45 AM EDT [facility] # Monos 0.19(L) 0.24 - 0.86 K/ L 12/14/2024 3:45 AM EDT [facility] # Eos <0.03(L) 0.04 - 0.36 K/ L 12/14/2024 3:45 AM EDT [facility] # Baso <0.03 0.01 - 0.08 K/ L 12/14/2024 3:45 AM EDT [facility] Immature Granulocytes-Re lative 0.00(L) 0.01 - 0.43 % 12/14/2024 3:45 AM EDT [facility] # IG <0.03 0.00 - 0.03 K/uL 12/14/2024 3:45 AM EDT [facility] Blood Venipuncture / Unknown 12/14/2024 2:54 AM EDT 12/14/2024 3:27 AM EDT Narrative [facility] - 12/14/2024 3:45 AM EDT When [...] PA-C LAB BLOOD ORDERABLES Final Re sult [facility] [address] [phone] * (ABNORMAL) Comprehensive metabolic panel (12/14/2024 2:54 AM EDT) Only the most recent of9 resultswithin the time period is included. Sodium 145 136 - 145 meq/L 12/14/2024 4:13 AM EDT [facility] Potassium 3.5 3.4 - 5.1 meq/L 12/14/2024 4:13 AM EDT [facility] Chloride 109 98 - 112 meq/L 12/14/2024 4:13 AM EDT [facility] CO2 27 22 - 29 meq/L 12/14/2024 4:13 AM EDT [facility] Calcium 8.6 8.4 - 10.2 mg/dL 12/14/2024 4:13 AM EDT [facility] Glucose 146(H) 82 - 115 mg/dL 12/14/2024 4:13 AM EDT [facility] BUN 67.7(H) 9.8 - 20.1 mg/dL 12/14/2024 4:13 AM EDT [facility] Creatinine 2.22(H) 0.57 - 1.11 mg/dL 12/14/2024 4:13 AM EDT [facility] BUN/Creatinine 30(H) 8 - 20 12/14/2024 4:13 AM [facility] eGFR (mL/min/1.73m2) 25(L) >=60 mL/min/1. 73m2 12/14/2024 4:13 AM [facility] Albumin 3.2(L) 3.5 - 5.0 g/dL 12/14/2024 4:13 AM [facility] Alkaline Phosphatase 56 40 - 150 U/L 12/14/2024 4:13 AM [facility] ALT 21 <=34 U/L 12/14/2024 4:13 AM [facility] Comment: ALT2 reagent used for testing does not contain P5P supplementation and therefore may miss ALT elevations in patients with B6 deficiency. This population may be as high as 10% in the [place], with risk factors including malabsorption, drug interactions, and alcoholic hepatitis. AST 52(H) 11 - 34 U/L 12/14/2024 4:13 AM [facility] Comment: AST2 reagent used for testing does not contain P5P supplementation and therefore may miss AST elevations in patients with B6 deficiency. This population may be as high as 10% in the [place], with risk factors including malabsorption, drug interactions, and alcoholic hepatitis. Total Bilirubin 0.9 0.2 - 1.2 mg/dL 12/14/2024 4:13 AM [facility] Protein, Total 5.9(L) 6.4 - 8.3 g/dL 12/14/2024 4:13 AM [facility] Globulin 2.7 2.5 - 4.1 g/dL 12/14/2024 4:13 AM [facility] Anion Gap 13(H) 4 - 12 12/14/2024 4:13 AM [facility] A/G Ratio 1.2 0.7 - 1.9 12/14/2024 4:13 AM [facility] Osmolality Calc 311.0 mOsm/kg 4:13 AM [facility] Blood Venipuncture / Unknown 12/14/2024 2:54 AM EDT 12/14/2024 3:26 AM EDT us David Coffman PA-C LAB BLOOD ORDERABLES Final Re sult Performing Organization Address City/[facility]/ZIP Co de Phone Number [facility] [address] [phone] * (ABNORMAL) CBC Scan (12/13/2024 3:15 AM EDT) Only the most recent of2 resultswithin the time period is included. [facility] Platelet Estimate Decreased (A) Adequate 12/13/2024 4:55 AM EDT [facility] RBC Morphology abnormal( A) Normal 12/13/2024 4:55 AM EDT [facility] Anisocytosis 1+ 12/13/2024 4:55 AM EDT [facility] Hypochromia 1+ 12/13/2024 4:55 AM EDT [facility] Ovalocytes 1+ 12/13/2024 4:55 AM EDT [facility] Blood Venipuncture / Unknown 12/13/2024 3:15 AM EDT 12/13/2024 3:27 AM EDT Venkatesh Stephen MD LAB BLOOD ORDERABLES Final Resul t Performing Organization Address [facility] Co de Phone Number [facility] [address] [phone] * (ABNORMAL) Hepatic function panel (12/13/2024 3:15 AM EDT) Pathologist [facility] Protein, Total 5.7(L) 6.4 - 8.3 g/dL 12/13/2024 4:13 AM EDT [facility] Albumin 3.1(L) 3.5 - 5.0 g/dL 12/13/2024 4:13 AM EDT [facility] Total Bilirubin 0.8 0.2 - 1.2 mg/dL 12/13/2024 4:13 AM EDT [facility] Bilirubin, Direct 0.4 0.0 - 0.5 mg/dL 12/13/2024 4:13 AM EDT [facility] Alkaline Phosphatase 53 40 - 150 U/L 12/13/2024 4:13 AM EDT [facility] Globulin 2.6 2.5 - 4.1 g/dL 12/13/2024 4:13 AM EDT [facility] A/G Ratio 1.2 0.7 - 1.9 12/13/2024 4:13 AM EDT [facility] AST 42(H) 11 - 34 U/L 12/13/2024 4:13 AM EDT [facility] Comment: AST2 reagent used for testing does not contain P5P supplementation and therefore may miss AST elevations in patients with B6 deficiency. This population may be as high as 10% in the [place], with risk factors including malabsorption, drug interactions, and alcoholic hepatitis. ALT 16 <=34 U/L 12/13/2024 4:13 AM EDT [facility] Comment: ALT2 reagent used for testing [...] MD LAB BLOOD ORDERABLES Final Resu lt [facility] [address] [phone] * (ABNORMAL) Basic Metabolic Panel (12/13/2024 3:15 AM EDT) Only the most recent of6 resultswithin the time period is included. Sodium 147(H) 136 - 145 meq/L 12/13/2024 4:13 AM EDT [facility] Potassium 3.5 3.4 - 5.1 meq/L 12/13/2024 4:13 AM EDT [facility] CO2 27 22 - 29 meq/L 12/13/2024 4:13 AM EDT [facility] Chloride 110 98 - 112 meq/L 12/13/2024 4:13 AM EDT [facility] Glucose 135(H) 82 - 115 mg/dL 12/13/2024 4:13 AM EDT [facility] BUN 71.9(H) 9.8 - 20.1 mg/dL 12/13/2024 4:13 AM EDT [facility] Creatinine 2.29(H) 0.57 - 1.11 mg/dL 12/13/2024 4:13 AM EDT [facility] BUN/Creatinine 31(H) 8 - 20 12/13/2024 4:13 AM EDT [facility] Calcium 8.5 8.4 - 10.2 mg/dL 12/13/2024 4:13 AM EDT [facility] Anion Gap 14(H) 4 - 12 12/13/2024 4:13 AM EDT [facility] eGFR (mL/min/1.73m2) 24(L) >=60 mL/min/1.7 3m2 12/13/2024 4:13 AM EDT [facility] Osmolality Calc 315.6 mOsm/kg 4:13 AM EDT [facility] Blood Venipuncture / Unknown 12/13/2024 3:15 AM EDT 12/13/2024 3:39 AM EDT us Venkatesh Stephen MD LAB BLOOD ORDERABLES Final Resul t [facility] [address] [phone] * US paracentesis (12/10/2024 11:37 AM EDT) [...] Ascites. ATTENDING PHYSICIAN: Dr. Haseeb Gil PHYSICIAN TIRE ROOM SUPERVISOR: Sujit Blackman PA-C FINDINGS: After informed consent [...] Ascites. ATTENDING PHYSICIAN: Dr. Haseeb Gil PHYSICIAN TIRE ROOM SUPERVISOR: Sujit Blackman PA-C FINDINGS: After informed consent [...] Blackman PA-C. us Mary Carmen Mcfadden MD [facility] ORDERABLES Final Result * ALT (SGPT) (12/10/2024 9:53 AM EDT) ALT 12 <=34 U/L 12/10/2024 11:02 AM EDT [facility] Comment: ALT2 reagent used for testing [...] ORDERABLES Final Resul t Performing Organization Address City/[facility]/ZIP Co de Phone Number [facility] [address] [phone] * (ABNORMAL) AST (SGOT) (12/10/2024 9:53 AM EDT) Pathologist [facility] AST 39(H) 11 - 34 U/L 12/10/2024 11:02 AM EDT [facility] Comment: AST2 reagent used for testing does not contain P5P supplementation and therefore may miss AST elevations in patients with B6 deficiency. This population may be as high as 10% in the [place], with risk factors including malabsorption, drug interactions, and alcoholic hepatitis. Cardiovascular Simulation has become aware of sulfasalazine and sulfapyridine [...] ORDERABLES Final Resul t Performing Organization Address City/[facility]/ZIP Co de Phone Number [facility] [address] [phone] * Magnesium (12/10/2024 9:53 AM EDT) Only the most recent of9 resultswithin the time period is included. Pathologist [facility] Magnesium 2.3 1.6 - 2.6 mg/dL 12/10/2024 11:02 AM EDT [facility] Blood Venipuncture / Unknown 12/10/2024 9:53 AM EDT 12/10/2024 10:39 AM EDT us Deysi Jon MD LAB BLOOD ORDERABLES Final Resul t [facility] [address] [phone] * XR chest AP portable (12/10/2024 9:10 AM EDT) Only the most recent of7 resultswithin the time period is included. Anatomical Region Laterality Modality Chest X-Ray 12/10/2024 9:40 AM EDT Impressions 12/10/2024 10:03 AM EDT Mild bibasilar atelectasis. Images reviewed, interpreted, and dictated by Dr. Der Keenan. Transcribed by Haven Henderson PA-C. Narrative [...] by Dr. Dre Keenan. Transcribed by Haven Henderson, PA-C. us Blanka Alvarez MD IMG DIAGNOSTIC IMAGING ORDERA BLES Final Result * (ABNORMAL) ABG (12/10/2024 6:42 AM EDT) Only the most recent of7 resultswithin the time period is included. pH, Arterial 7.30(L) 7.35 - 7.45 12/10/2024 6:51 AM EDT [facility] pCO2, Arterial 49(H) 35 - 45 mm Hg 12/10/2024 6:51 AM EDT [facility] pO2, Arterial 119(H) 80 - 100 mm Hg 12/10/2024 6:51 AM EDT [facility] HCO3, Arterial 24 20 - 26 mmol/L 12/10/2024 6:51 AM T [facility] Base Excess, Arterial -2.4(L) -2.0 - 2.0 mmol/L 12/10/2024 6:51 AM EDT [facility] O2 Sat, Arterial >99.2 95.0 - 100.0 % 12/10/2024 6:51 AM EDT [facility] Comment:notified at read-anny k verification CTO2 ARTERIAL 11.9 mmol/L 12/10/2024 6:51 AM [facility] THB ARTERIAL 8.5(L) 12.0 - 18.0 g/dL 12/10/2024 6:51 AM [facility] SJ COLLECTION SITE Left Radial 12/10/2024 6:51 AM T [facility] Arterial Puncture Yes 12/10/2024 6:51 AM [facility] Blood Gas O2 Delivery Device Cannula 12/10/2024 6:51 AM [facility] Oxygen Flow Rate 4 12/11/19 6:51 AM [facility] Blood Gas PT Temperature C 37.0 12/10/2024 6:51 AM [facility] Sen's Test Acceptable 12/10/2024 6:51 AM [facility] ABG Number of Draw Attempts 1 12/10/2024 6:51 AM [facility] FIO2 12/10/2024 6:51 AM EDT [facility] Blood Gas Temperature Corrected Results No No 12/10/2024 6:51 AM EDT [facility] Blood, Arterial Collection / Unknown 12/10/2024 6:42 AM EDT 12/10/2024 6:51 AM EDT us Blanka Alvarez MD LAB BLOOD ORDERABLES Final Re sult [facility] [address] [phone] * (ABNORMAL) CBC - Hemogram ([facility]) (12/09/2024 3:38 AM EDT) Only the most recent of8 resultswithin the time period is included. WBC 2.4(L) 4.0 - 10.0 K/ L 12/09/2024 3:59 AM EDT [facility] RBC 2.83(L) 3.93 - 5.22 M/ L 12/09/2024 3:59 AM EDT [facility] Hemoglobin 8.5(L) 11.2 - 15.7 GM/DL 12/09/2024 3:59 AM EDT [facility] Hematocrit 28.0(L) 34.1 - 44.9 % 12/09/2024 3:59 AM EDT [facility] MCV 99(H) 79 - 95 fL 12/09/2024 3:59 AM EDT [facility] MCH 30.0 25.6 - 32.2 pg 12/09/2024 3:59 AM EDT [facility] MCHC 30.4(L) 32.2 - 35.5 GM/DL 12/09/2024 3:59 AM EDT [facility] RDW 17.2(H) 11.7 - 14.4 % 12/09/2024 3:59 AM EDT [facility] Platelets 55(L) 140 - 375 K/CU MM 12/09/2024 3:59 AM EDT [facility] MPV 11.5 9.4 - 12.3 fL 12/09/2024 3:59 AM EDT [facility] Blood Venipuncture / Unknown 12/09/2024 3:38 AM EDT 12/09/2024 3:45 AM EDT Mary Carmen Mcfadden MD LAB BLOOD ORDERABLES Final Resu lt [facility] [address] [place] [address], [facility] [phone] * Erythropoietin(SENDOUT) (12/07/2024 3:59 AM EDT) Erythropoietin 19 4 - 27 mU/mL 12/08/2024 2:30 PM EDT [facility] Comment: INTERPRETIVE INFORMATION: Erythropoietin Normal serum concentrations [...] may benefit from therapy with recombinant EPO ([facility] [id number]). Performed By: [facility] [address] [place] [id number] Assistant Commissioner: Lalo Mortensen MD, PhD CLIA Number: [id number] Blood Venipuncture / Unknown 12/07/2024 3:59 AM EDT 12/07/2024 4:11 AM EDT Ariel Mills MD LAB BLOOD ORDERABLES Final Res ult Performing Organization Address City/[facility]/ZIP Co de Phone Number [place] [id number] [phone] * Ammonia (12/07/2024 3:59 AM EDT) Only the most recent of8 resultswithin the time period is included. Ammonia 44 18 - 72 mol/L 12/07/2024 4:37 AM EDT [facility] Blood Venipuncture / Unknown 12/07/2024 3:59 AM EDT 12/07/2024 4:22 AM EDT Timothy Bai MD LAB BLOOD ORDERABLES Final Result Performing Organization Address [facility] Co de Phone Number [facility] [address] [phone] * (ABNORMAL) Ferritin (12/06/2024 3:13 AM EDT) Only the most recent of2 resultswithin the time period is included. Ferritin 256.82(H) 4.63 - 204.00 ng/mL 12/06/2024 8:25 AM EDT [facility] Blood Venipuncture / Unknown 12/06/2024 3:13 AM EDT 12/06/2024 3:50 AM EDT Ariel Mills MD LAB BLOOD ORDERABLES Final Res ult Performing Organization Address [facility] Co de Phone Number [facility] [address] [phone] * (ABNORMAL) Hemoglobin (12/05/2024 3:36 PM EDT) Only the most recent of11 resultswithin the time period is included. Hemoglobin 8.1(L) 11.2 - 15.7 GM/DL 12/05/2024 3:57 PM EDT [facility] Blood Venipuncture / Unknown 12/05/2024 3:36 PM EDT 12/05/2024 3:47 PM EDT us Timothy Bai MD LAB BLOOD ORDERABLES Final Result [facility] [address] [phone] * ANCA Vasculitis Profile(SENDOUT) (12/04/2024 8:15 AM EDT) Pathologist [facility] Myeloperoxidase (MPO) Ab, IgG 0 0 - 19 AU/mL 12/07/2024 8:52 AM EDT [facility] Comment: INTERPRETIVE INFORMATION: Myeloperoxidase Abs, IgG 19 AU/mL or Less ......... Negative 20-25 AU/mL .............. Equivocal 26 AU/mL or Greater ...... Positive Approximately 90% of patients with a P-ANCA pattern by IFA have antibodies specific for MPO. Serine Proteinase 3 (PR3) Ab, IgG 0 0 - 19 AU/mL 12/07/2024 8:52 AM EDT [facility] Comment: INTERPRETIVE INFORMATION: Serine Proteinase 3, IgG 19 AU/mL or Less ........ Negative 20-25 AU/mL ............. Equivocal 26 AU/mL or Greater ..... Positive Approximately 85% of patients with a C-ANCA pattern by IFA have antibodies specific for PR3. ANCA IFA Titer <1:20 <1:20 12/07/2024 8:52 AM EDT [facility] ANCA IFA Pattern None Detected None Detected 12/07/2024 8:52 AM EDT [facility] Comment: INTERPRETIVE INFORMATION: ANCA IFA Pattern Neutrophil Cytoplasmic Antibodies (C-ANCA = granular cytoplasmic staining, P-ANCA = perinuclear staining) are found in the serum of over 90 percent of patients with certain necrotizing systemic vasculitides, and usually in less than 5 percent of patients with collagen vascular disease or arthritis. Performed By: [facility] [address] [place], [place] [id number] Assistant Commissioner: Lalo Mortensen MD, PhD CLIA Number: [id number] Blood Venipuncture / Unknown 12/04/2024 8:15 AM EDT 12/04/2024 8:32 AM EDT us Hema Cervantes MD LAB BLOOD ORDERABLES Final Re sult [facility] [address] [place] [address], [facility] [phone] * JEANA Reflexive Profile(SENDOUT) (12/04/2024 8:15 AM EDT) Anti-Nuclear Ab (JEANA), IgG by SHARON None Detected None Detected 12/06/2024 3:51 PM EDT [facility] Comment: No Anti-Nuclear Antibodies (JEANA) detected by SHARON. The Extractable Nuclear Antigen Antibodies (RV [employer]S AND SERVICE DIRECTOR, Llanes, SSA 52, SSA 60, Scleroderma, Lilia-1 and SSB) and Double Stranded DNA (dsDNA) Antibody, IgG will not be performed. If suspicion of connective tissue disease is strong, and JEANA is negative by SHARON, consider testing for JEANA by IFA ([id number]). INTERPRETIVE INFORMATION: Anti-Nuclear Antibodies (JEANA), IgG by SHARON Antinuclear Antibodies (JEANA), IgG by SHARON: JEANA specimens are screened using enzyme-linked immunosorbent assay (SHARON) methodology. All SHARON results reported as Detected are further tested by indirect fluorescent assay (IFA) using HEp-2 substrate with an IgG-specific conjugate. The JEANA SHARON screen is designed to detect antibodies against dsDNA, histones, SS-A (Ro), SS-B (La), Llanes, Llanes/RV [employer]S AND SERVICE DIRECTOR, Scl-70, Lilia-1, centromeric proteins, other antigens extracted from the HEp-2 cell nucleus. JEANA SHARON assays have been reported to have lower sensitivities than JEANA IFA for systemic autoimmune rheumatic diseases (SARD). Negative results do not necessarily rule out SARD. Performed By: [facility] [address] [place] [address] Assistant Commissioner: Lalo Mortensen MD, PhD CLIA Number: [id number] Blood Venipuncture / Unknown 12/04/2024 8:15 AM EDT 12/04/2024 8:32 AM EDT us Hema Cervantes MD LAB BLOOD ORDERABLES Final Re sult [address] [phone] * Phosphorus (12/04/2024 3:34 AM EDT) Phosphorus 4.2 2.5 - 4.5 mg/dL 12/04/2024 4:04 AM EDT [facility] Blood Venipuncture / Unknown 12/04/2024 3:34 AM EDT 12/04/2024 3:41 AM EDT us Kirsty Tuttle APRN LAB BLOOD ORDERABLES Final R esult Performing Organization Address [facility] Co de Phone Number [facility] [address] [phone] * Creatine Kinase (CK) (12/03/2024 7:39 AM EDT) Only the most recent of2 resultswithin the time period is included. Total CK 55 29 - 168 U/L 12/03/2024 6:19 PM EDT [facility] Blood Venipuncture / Unknown 12/03/2024 7:39 AM EDT 12/03/2024 5:52 PM EDT us Hema Cervantes MD LAB BLOOD ORDERABLES Final Re sult Performing Organization Address City/[facility]/ZIP Co de Phone Number [facility] [address] [phone] * Transfuse RBC (12/02/2024 5:03 PM EDT) [...] Pancytopenia. ATTENDING RADIOLOGIST: Dr. Haseeb Gil. PHYSICIAN TIRE ROOM SUPERVISOR: Sandra Ramsey PA-C PROCEDURE: After informed consent [...] Pancytopenia. ATTENDING RADIOLOGIST: Dr. Haseeb Gil. PHYSICIAN TIRE ROOM SUPERVISOR: Sandra Ramsey PA-C PROCEDURE: After informed consent [...] by Sandra Ramsey PA-C. Rommel Batista MD [facility] ORDERABLES Final Result * [facility] BONE MARROW SMEAR, ASPIRATION, AND STAIN (12/02/2024 12:06 PM EDT) AP RESULT See Note: [facility]Y [facility]TOLOGY [facility] Comment: [facility] [address] [place] [address] or [phone] Joe Carlos M.D., Medical Manager PATIENT NAME LABORATORY NO. MRAY OLIVA. [id number] [facility] MAIN AGE SEX SSN CLIENT REF # [id number] F [id number] 1 [place] [address] REQUESTING Mirtha. ATTENDING Aleksandr. COPY TO.. ROMMEL BATISTA DATE COLLECTED DATE RECEIVED DATE REPORTED 12/02/2024 12/02/2024 12/06/2024 ADDENDUM PRESENT ADDENDUM: Cytogenetics shows a normal female karyotype, 46,XX[20]. The original diagnosis remains unchanged. Verified by Heydi Mak M.D., MPH on 12/13/2024 Professional interpretation rendered by Heydi Mak M.D., MPH at [facility], [address] [place] [address]. DIAGNOSIS: PERIPHERAL SMEAR , BONE MARROW ASPIRATION [...] CD38, CD45, CD56, CD57, CD117, CD123, HLA-DR, Birdsong, and Lambda. These tests use analyte specific [...] rendered by Heydi Mak M.D., MPH at [employer] [facility], [address] [place] [address]. GROSS DESCRIPTION: A. Received 1 peripheral blood smear slide for review. B. Received 5 bone marrow aspirate smear slides for review. 4 additional bone marrow aspirate smear slides made at [facility]. C. Received in a purple top [...] BY: Heydi Mak M.D., MPH CPT CODES: 96893, 2FLP, 66901, 16758f5, 47206g9, 44717, 96907, [id number] Bone Marrow BONE MARROW STRUCTURE / Unknown 12/02/2024 12:06 PM EDT us Rommel Batista MD PATHOLOGY/CYTOLOGY ORDERABLES Edited Result - Final [facility]ORY [address] [place] [address] * Prepare RBC: 1 Units (12/02/2024 9:36 AM EDT) Only the most recent of2 resultswithin the time period is included. Issue Date/Time [id number] [facility] ([place]) Product Identification Red Blood Cells [facility] ([place]) Product Code [id number] [facility] ([place]) Status Information Transfused [facility] ([place]) Unit Number [id number] [facility] BLOOD [facility] (NM) Blood Type 5100 [facility] (NM) Cross Match Results Compatible [facility] (NM) us Timothy Bai MD FS_MODEL_IP_BLOOD BANK PRO DUCT ORDERABLES Final Result Performing Organization Address [facility] Co de Phone Number [facility] - BLOOD BANK (NM) [address] [place] [address], [facility] [phone] * (ABNORMAL) Hemoglobin and hematocrit (12/02/2024 7:40 AM EDT) Hemoglobin 7.4(L) 11.2 - 15.7 GM/DL 12/02/2024 9:43 AM EDT [facility] Hematocrit 23.4(L) 34.1 - 44.9 % 12/02/2024 9:43 AM EDT [facility] Blood Venipuncture / Unknown 12/02/2024 7:40 AM EDT 12/02/2024 7:47 AM EDT us Timothy Bai MD LAB BLOOD ORDERABLES Final Result Performing Organization Address [facility] Co de Phone Number [facility] [address] [phone] * AN SINGLE LUMEN INTUBATION (12/01/2024 9:01 AM EDT) Narrative Rolo Stauffer CRNA - 12/01/2024 9:01 AM EDT Rloo Stauffer CRNA 12/01/2024 9:07 AM Intubation Authorized [...] ABO/Rh O Positive 12/01/2024 4:53 AM EDT [facility] ([place]) Antibody Screen Negative 12/01/2024 4:53 AM EDT [facility] ([place]) HISTCHK HIST CHECK PERFORMED 12/01/2024 4:53 AM EDT [facility] ([place]) Blood Venipuncture / Unknown 12/01/2024 7:08 AM EDT 12/01/2024 7:15 AM EDT us Denilson Hodgson DO [facility] BLOOD [facility] TEST ORDERABLES Final Result Performing Organization Address [facility] Co de Phone Number [facility] ([place]) [address] [place] [address] [phone] * ABO/RH Confirmation/Retype (12/01/2024 4:06 AM EDT) RETYPE O Positive 12/01/2024 5:15 AM EDT [facility] ([place]) Comment:[id number] Blood Venipuncture / Unknown 12/01/2024 4:06 AM EDT 12/01/2024 5:14 AM EDT Timothy Bai MD [facility] BLOOD BANK TEST ORDERA BLES Final Result Performing Organization Address [facility]/ZIP Co de Phone Number [facility] ([place]) [address] [place] [address] [place] [address], [facility] [phone] * Ultrasound renal limited (11/30/2024 4:19 PM [...] by SABINE Yang. us Destiney Llanes APRN [facility] [place] ORDERABLES Final Res ult * DIFFERENTIAL, BODY FLUID (11/30/2024 4:03 PM EDT) Neutrophils Fluid 5 0 - 25 % 025 8:49 PM EDT [facility] Lymphocytes Fluid 46 % 025 8:49 PM EDT [facility] Unidentified Mononuclear Cells BF 49 0 - 0 % 11/30/2024 8:49 PM EDT [facility] Peritoneal Fluid BODY FLUID / Unknown 11/30/2024 4:03 PM EDT 11/30/2024 4:33 PM EDT Huey Hurtado MD BODY FLUIDS AND STOOLS ORDERABLE S Final Result [facility] [address] [phone] * [facility] Non-[place] On Cytology (11/30/2024 4:03 PM EDT) AP RESULT See Note: PATHOLOGY AND CYTOLOGY LABORATORY Comment: [facility] [address] [place] [address] or [phone] Joe Carlos M.D., Medical Manager PATIENT NAME LABORATORY NO. MARY OLIVA. [id number] AGE SEX SSN CLIENT REF # [facility] [id number] F [id number] [address] [facility] REQUESTING Aleksandr ATTENDING [place] [address] HUEY HURTADO DATE COLLECTED DATE RECEIVED DATE REPORTED 11/30/2024 12/01/2024 12/02/2024 DIAGNOSIS: PERITONEAL FLUID: Negative for malignant cells. MICROSCOPIC DESCRIPTION: Scattered mesothelial cells and chronic inflammatory cells are present. Professional interpretation rendered by John Sanchez M.D., F.C.A.P. at [employer], [address] [place] [address]. CLINICAL HISTORY: Melena Anasarca Acute renal failure SPECIMENS SUBMITTED: PERITONEAL FLUID GROSS SPECIMEN DESCRIPTION: 40 ccs of hazy, light yellow fluid, scant sediment, received in fixative ThinPrep slides prepared. Cell block has been examined. NAIL GALVANIZER: SVITLANA HERNANDEZ (ASCP) REVIEWED, DIAGNOSED AND ELECTRONICALLY SIGNED BY: John Sanchez M.D., F.C.A.P. CPT CODES: 54575, [id number] Peritoneal Fluid BODY FLUID / Unknown 11/30/2024 4:03 PM EDT us Huey Hurtado MD PATHOLOGY/CYTOLOGY ORDERABLES Fi nal Result Performing Organization Address City/[facility]/ZIP Co de Phone Number [facility]Y [facility]TOLOGY LAB[facility]ATORY [address] * Body Fluid/CSF - Path Review (SJ) (11/30/2024 4:03 PM EDT) SENT TO PATHOLOGY FOR REVIEW Yes 12/03/2024 6:54 AM EDT [facility] Scan Result Mesothelial cells. MD German 12/02/2024 12/03/2024 6:54 AM EDT [facility] Peritoneal Fluid BODY FLUID / Unknown 11/30/2024 4:03 PM EDT 11/30/2024 4:33 PM EDT us Huey Hurtado MD BODY FLUIDS AND STOOLS ORDERABLE S Final Result Performing Organization Address City/[facility] Co de Phone Number [facility] [address] [phone] * Glucose, body fluid (11/30/2024 4:03 PM EDT) Glucose, Body Fluid 107 See Comment mg/dL 12/01/2024 7:10 AM EDT [facility] BODY FLUID TYPE Peritoneal 12/01/2024 7:10 AM EDT [facility] Body Fluid PERITONEAL FLUID / Unknown 11/30/2024 4:03 PM EDT 12/01/2024 6:52 AM EDT Narrative [facility] - 12/01/2024 7:10 AM EDT This test has been modified from the slurry control tender's instructions and its performance characteristics were determined by the laboratory. The reference intervals and other method performance specifications are unavailable for this test. It is recommended to interpret body fluid concentrations in comparison with the corresponding serum or plasma concentrations and to integrate test results into the clinical context. us Timothy Bai MD BODY FLUIDS AND STOOLS ORD ERABLES Final Result [facility] [address] [phone] * Anaerobic Culture (11/30/2024 4:03 PM EDT) Result No Anaerobic growth 12/05/2024 6:34 AM EDT [facility] Peritoneal Fluid BODY FLUID / Unknown 11/30/2024 4:03 PM EDT 11/30/2024 4:34 PM EDT [facility] - 12/05/2024 6:34 AM EDT Specimen Description: peritoneal fluid us Huey Hurtado MD MICROBIOLOGY - GENERAL ORDERABLE S Final Result Performing Organization Address [facility]/ZIP Co de Phone Number [facility] [address] [phone] * Body Fluid Culture + Gram Stain (11/30/2024 4:03 PM EDT) Result No growth 12/03/2024 9:07 AM EDT [facility] Gram Stain Result No organisms seen 12/03/2024 9:07 AM EDT [facility] Gram Stain Result No cells seen 12/03/2024 9:07 AM EDT [facility] Peritoneal Fluid BODY FLUID / Unknown 11/30/2024 4:03 PM EDT 11/30/2024 4:34 PM EDT Narrative [facility] - 12/03/2024 9:07 AM EDT Specimen Description: peritoneal fluid us Huey Hurtado MD MICROBIOLOGY - GENERAL ORDERABLE S Final Result Performing Organization Address City/[facility]/ZIP Co de Phone Number [facility] [address] [phone] * (ABNORMAL) Body fluid cell count with differential (11/30/2024 4:03 PM EDT) Appearance Cloudy(A) Clear 11/30/2024 8:49 PM EDT [facility] Color Yellow 11/30/2024 8:49 PM EDT [facility] BODY FLUID TYPE Peritoneal 11/30/2024 8:49 PM EDT [facility] Auto WBC/Nucleated Cells BF 85 /uL 11/30/2024 8:49 PM EDT [facility] Comment: Please refer to specific WBC/Nucleated Cell Count Body Fluid reference ranges below: For Pleural: 0-1000 Peritoneal: 0-1000 Pericardial:0-1000 Synovial: 0-200 Auto RBC BF <3,000 /uL 11/30/2024 8:49 PM EDT [facility] Comment: Please refer to specific RBC Cell Count Body Fluid reference ranges below: Pleural: 0-10,000 Peritoneal: 0-10,000 Pericardial:0-10,000 Synovial:0-30 Peritoneal Fluid BODY FLUID / Unknown 11/30/2024 4:03 PM EDT 11/30/2024 4:33 PM EDT [facility] - 11/30/2024 8:49 PM EDT There is normally no readily obtainable pleural, peritoneal and pericardial fluid, hence normal elements for these potential fluids are not defined. us Huey Hurtado MD BODY FLUIDS AND STOOLS ORDERABLE S Final Result [facility] [address] [place] [address] * Protein, body fluid (11/30/2024 4:03 PM EDT) Protein, Fluid 1.9 See Comment g/dL 12/01/2024 7:10 AM EDT [facility] BODY FLUID TYPE Peritoneal 12/01/2024 7:10 AM EDT [facility] Body Fluid PERITONEAL FLUID / Unknown 11/30/2024 4:03 PM EDT 12/01/2024 6:52 AM EDT [facility] - 12/01/2024 7:10 AM EDT This test has been modified from the slurry control tender's instructions and its performance characteristics were determined [...] ORD ERABLES Final Result Performing Organization Address [facility] Co de Phone Number [facility] [address] [phone] * Lactate dehydrogenase (LDH), body fluid (11/30/2024 4:03 PM EDT) LDH, Fluid 71 See Comment U/L 11/30/2024 6:19 PM EDT [facility] BODY FLUID TYPE Peritoneal 11/30/2024 6:19 PM EDT [facility] Peritoneal Fluid BODY FLUID / Unknown 11/30/2024 4:03 PM EDT 11/30/2024 4:33 PM EDT Narrative [facility] - 11/30/2024 6:19 PM EDT This test has been modified from the slurry control tender's instructions and its performance characteristics were determined [...] ORDERABLE S Final Result Performing Organization Address [facility] de Phone Number [facility] [address] [phone] * (ABNORMAL) Urinalysis, Reflex Microscopic and Culture If Indicated (11/30/2024 11:35 AM EDT) Color, UA Light Yellow 11/30/2024 12:06 PM EDT [facility] Clarity, UA Turbid(A) Clear 11/30/2024 12:06 PM EDT [facility] Specific [place], UA 1.011 1.005 - 1.030 11/30/2024 12:06 PM EDT [facility] pH, UA 5.0(L) 6.0 - 8.0 11/30/2024 12:06 PM EDT [facility] Leukocytes, UA 500 Félix/uL(A) Negative 11/30/2024 12:06 PM EDT [facility] Nitrite, UA Negative Negative 11/30/2024 12:06 PM EDT [facility] Protein, UA Negative Negative 11/30/2024 12:06 PM EDT [facility] Glucose, UA Normal Normal 11/30/2024 12:06 PM EDT [facility] Ketones, UA Negative Negative 11/30/2024 12:06 PM EDT [facility] Bilirubin, UA Negative Negative 11/30/2024 12:06 PM EDT [facility] Blood, UA Negative Negative 11/30/2024 12:06 PM EDT [facility] Urobilinogen, UA Normal Normal 11/30/2024 12:06 PM EDT [facility] Specimen Source Urine, Clean Catch 11/30/2024 12:06 PM EDT [facility] Urine URINE SPECIMEN COLLECTION, CLEAN CATCH / Unknown 11/30/2024 11:35 AM EDT 11/30/2024 11:41 AM EDT us Destiney Llanes SNUFF GRINDER AND SCREENER URINE ORDERABLES Final Resu lt [facility] [address] [phone] * (ABNORMAL) Urinalysis Microscopic Only (11/30/2024 11:35 AM EDT) WBC, UA 21-50(A) None Seen /HPF 11/30/2024 12:06 PM EDT [facility] RBC, UA 0-2(A) None Seen /HPF 11/30/2024 12:06 PM EDT [facility] Bacteria, UA 1+(A) None Seen, Trace 11/30/2024 12:06 PM EDT [facility] Mucus 1+(A) None Seen 11/30/2024 12:06 PM EDT [facility] SQUAMOUS EPITHELIAL 3-5(A) None Seen /HPF 11/30/2024 12:06 PM EDT [facility] HYALINE CASTS 21-50(A) None Seen /LPF 11/30/2024 12:06 PM EDT [facility] Urine URINE SPECIMEN COLLECTION, CLEAN CATCH / Unknown 11/30/2024 11:35 AM EDT 11/30/2024 11:41 AM EDT us Destiney Llanes APRN URINE ORDERABLES Final Resu lt [facility] [address] [phone] * Urea Nitrogen, random urine (11/30/2024 11:35 AM EDT) Urea Nitrogen, Ur 305 mg/dL 11/30/2024 12:36 PM EDT [facility] Comment:Reference Range not established Urine 11/30/2024 11:3 5 AM EDT 11/30/2024 12:15 PM EDT us Hill Boo MD URINE ORDERABLES Final Result Performing Organization Address [facility] Co de Phone Number [facility] [address] [place] [address] * Protein / creatinine ratio, urine (11/30/2024 11:35 AM EDT) Creatinine, Ur 62.00 47.00 - 110.00 mg/dL 11/30/2024 12:36 PM EDT [facility] Protein Creatinine Ratio 0.19 <=0.20 11/30/2024 12:36 PM EDT [facility] Protein, Urine 12 1 - 14 mg/dL 11/30/2024 12:36 PM EDT [facility] Urine 11/30/2024 11:3 5 AM EDT 11/30/2024 12:15 PM EDT us Hill Boo MD URINE ORDERABLES Final Result Performing Organization Address [facility]/ZIP Co de Phone Number [facility] [address] [phone] * Sodium, random urine (11/30/2024 11:35 AM EDT) Sodium Urine 83 See Comment meq/L 11/30/2024 12:36 PM EDT [facility] Comment:Reference Range not established Urine 11/30/2024 11:3 5 AM EDT 11/30/2024 12:15 PM EDT us Hill Boo MD URINE ORDERABLES Final Result Performing Organization Address [facility] Co de Phone Number [facility] [address] [phone] * Urine Culture (11/30/2024 11:35 AM EDT) Result Recollect Specimen - 3 or more organisms suggests contamination 12/01/2024 6:49 AM EDT [facility] Urine URINE SPECIMEN COLLECTION, CLEAN CATCH / Unknown 11/30/2024 11:35 AM EDT 11/30/2024 11:41 AM EDT us Destiney Llanes APRN MICROBIOLOGY - [facility]AL [facility] Final Result Performing Organization Address [facility] Co de Phone Number [facility] [address] [phone] * (ABNORMAL) Monoclonal Protein Study, Expanded Panel(SENDOUT) (11/30/2024 11:01 AM EDT) Total Protein, Serum 6.2(L) 6.3 - 8.2 g/dL 12/03/2024 12:57 PM EDT [facility] Albumin 2.71(L) 3.75 - 5.01 g/dL 12/03/2024 12:57 PM EDT [facility] Alpha 1 Globulin 0.34 0.19 - 0.46 g/dL 12/03/2024 12:57 PM EDT [facility] Alpha 2 Globulin 0.38(L) 0.48 - 1.05 g/dL 12/03/2024 12:57 PM [facility] Beta Globulin 1.30(H) 0.48 - 1.10 g/dL 12/03/2024 12:57 PM [facility] Gamma 1.47 0.62 - 1.51 g/dL 12/03/2024 12:57 PM [facility] Immunofixation MAEGAN Done 12/03/2024 12:57 PM [facility] Immunoglobulin G 1484 768 - 1632 mg/dL 12/03/2024 12:57 PM [facility] Immunoglobulin A 686(H) 68 - 408 mg/dL 12/03/2024 12:57 PM [facility] Immunoglobulin M 126 35 - 263 mg/dL 12/03/2024 12:57 PM [facility] Monoclonal Protein Not Applicable <=0.00 g/dL 12/03/2024 12:57 PM [facility] Birdsong Qnt Free Light Chains 173.10(H) 3.30 - 19.40 mg/L 12/03/2024 12:57 PM [facility] Comment: INTERPRETIVE INFORMATION: Birdsong Qnt Free Light Chains Undetected antigen excess is a rare event but cannot be excluded. Free light chain results should always be interpreted in conjunction with other clinical and laboratory findings. Lambda Qnt Free Light Chains 123.84(H) 5.71 - 26.30 mg/L 12/03/2024 12:57 [facility] Comment: INTERPRETIVE INFORMATION: Lambda Qnt Free Light Chains Undetected antigen excess is a rare event but cannot be excluded. Free light chain results should always be interpreted in conjunction with other clinical and laboratory findings. Birdsong/Lambda Free Light Chain Ratio 1.40 0.26 - 1.65 12/03/2024 12:57 PM [facility] SPEP/MAEGAN Interpretation See Note 12/03/2024 12:57 [facility] Comment: Restricted band in the [...] Serum See Note 12/03/2024 12:57 PM EDT [facility] Comment: Authorized individuals can access the [facility] Enhanced Report with an [facility] Connect account using the following link. Your local lab can assist you in obtaining the patient report if you don't have a Connect account. [email or web address] Performed By: [facility] [address] [place] [address] Assistant Commissioner: Lalo Mortensen MD, PhD CLIA Number: [id number] Blood Venipuncture / Unknown 11/30/2024 11:01 AM EDT 11/30/2024 12:17 PM EDT Hill Boo MD LAB BLOOD ORDERABLES Final Resu lt [facility] [address] [place] [address], [facility] [phone] * Alpha Fetoprotein Tumor Marker(SENDOUT) (11/30/2024 11:01 AM EDT) Alpha Fetoprotein Tumor Marker 2 0 - 9 ng/mL 12/01/2024 3:41 PM EDT [facility] Comment: INTERPRETIVE INFORMATION: Alpha Fetoprotein Tumor Marker [...] reference intervals for this test in the [facility] Laboratory Test Directory (Brandle). Performed By: [facility] [address] [place] [address] Assistant Commissioner: Lalo Mortensen MD, PhD CLIA Number: [id number] Blood Venipuncture / Unknown 11/30/2024 11:01 AM EDT 11/30/2024 11:06 AM EDT Destiney Llanes APRN LAB BLOOD ORDERABLES Final Result Performing Organization Address City/[facility] Co de Phone Number [facility] [address] [phone] * (ABNORMAL) Vitamin D, 25-Hydroxy (11/30/2024 8:20 AM EDT) Vitamin D 25-Hydroxy 22.0(L) 30 - 80 ng/mL 11/30/2024 9:48 AM EDT [facility] Blood Venipuncture / Unknown 11/30/2024 8:20 AM EDT 11/30/2024 9:08 AM EDT us Timothy Bai MD LAB BLOOD ORDERABLES Final Result Performing Organization Address [facility] Co de Phone Number [facility] [address] [phone] * Hemoglobin A1c (11/30/2024 8:20 AM EDT) Hemoglobin A1C 4.9 4.0 - 5.6 % 11/30/2024 9:17 AM EDT [facility] Comment: Hemoglobin A1C levels are related to mean glucose during the preceding 2-3 months. Less than 7% demonstrates glycemic control in diabetic patients. Hemoglobin AlC % Suggested Diagnosis > or = 6.5 Diabetic 5.7 - 6.4 Prediabetic <5.7 Non-diabetic eAVG Glucose 93.93 70 - 126 mg/dL 11/30/2024 9:17 AM EDT [facility] Blood Venipuncture / Unknown 11/30/2024 8:20 AM EDT 11/30/2024 9:07 AM EDT us Huey Hurtado MD LAB BLOOD ORDERABLES Final Resul t [facility] [address] [place] [id number] [phone] * ECHO COMPLETE (DOPPLER / COLOR) WO CONTRAST (11/30/2024 7:50 AM EDT) Anatomical Region Laterality Modality Heart Vascular Ultraso und 11/30/2024 7:25 AM EDT Narrative 11/30/2024 10:46 AM EDT TRANSTHORACIC ECHOCARDIOGRAPHY REPORT Demographics Patient Name: RIN JONES : 1960 Age: 64 year(s) Corporate ID Number: [id number] Gender Female Toll Settlement Clerk: Giovanna Rock Height: 67 inches [facility] Referring Physician: HUEY HURTADO Weight: 225 [...] 1.35 m/s E/A ratio: 0.97 m/s Volume zehafiobe510.99 LV length: 8.51 cm ml Volume rfzbkxpu53.96 ml LVOT diameter: 1.79 cm Normal sized [...] Valve TR velocity: 2.51 m/s TR gradient: 25.94732 mmHg Estimated RAP: 3 mmHg RVSP: 28.12 [...] 1960 Age: 64 year(s) Corporate ID Number: [id number] Gender Female Toll Settlement Clerk: Giovanna Rock Height: 67 inches [facility] Referring Physician: HUEY HURTADO Weight: 225 pounds Interpreting JESSICA RAYMOND MD BMI: 35.24 kg/m^2 Physician: Date of Service: 11/30/2024 Blood Pressure: 118/59 mmHg Room Number: 579 Type of Study: TTE procedure: ECHO COMPLETE (DOPPLER / COLOR) W OR WO CONTRAST. Patient Status: [facility]ine [facility] Adequate visualization History/Tech Notes: Indication: shortness [...] 1.35 m/s E/A ratio: 0.97 m/s Volume nyvxxatat561.99 LV length: 8.51 cm ml Volume lllsapui73.96 ml LVOT diameter: 1.79 cm Normal sized [...] Valve TR velocity: 2.51 m/s TR gradient: 25.24866 mmHg Estimated RAP: 3 mmHg RVSP: 28.12 [...] in 5 days 12/05/2024 5:01 AM EDT [facility] Blood ENTIRE RIGHT UPPER ARM / Unknown Venipuncture / Unknown 11/30/2024 3:42 AM EDT 11/30/2024 4:09 AM EDT us Huey Hurtado MD MICROBIOLOGY - GENERAL ORDERABLE S Final Result [facility] [address] [place] [address], [facility] [phone] * Lactic Acid with reflex (11/30/2024 3:40 AM EDT) Lactic Acid Level (mmol/L) 0.9 0.5 - 2.2 mmol/L 11/30/2024 5:37 AM EDT [facility] Blood Venipuncture / Unknown 11/30/2024 3:40 AM EDT 11/30/2024 4:10 AM EDT us Huey Hurtado MD LAB BLOOD ORDERABLES Final Resul t Performing Organization Address [facility] Co de Phone Number [facility] [address] [phone] * Procalcitonin (11/30/2024 3:40 AM EDT) Procalcitonin 0.26 See Comment ng/mL 11/30/2024 5:07 AM EDT [facility] Comment: Sepsis comment <0.5 Antibiotics Discouraged [...] Resul t Performing Organization Address [facility] Co de Phone Number [facility] [address] [phone] * (ABNORMAL) Iron and TIBC (11/30/2024 3:40 AM EDT) Iron 63 50 - 170 ug/dL 11/30/2024 6:13 PM EDT [facility] TIBC 183(L) 250 - 435 ug/dL 11/30/2024 6:13 PM EDT [facility] % Saturation 34 % 11/30/2024 6:13 PM EDT [facility] UIBC 120 11/30/2024 6:13 PM EDT [facility] Blood Venipuncture / Unknown 11/30/2024 3:40 AM EDT 11/30/2024 4:09 AM EDT us Rommel Batista MD LAB BLOOD ORDERABLES Final Res ult [facility] [address] [phone] * aPTT (11/30/2024 3:40 AM EDT) aPTT 27.7 22.0 - 32.0 seconds 11/30/2024 4:32 AM EDT [facility] Blood Venipuncture / Unknown 11/30/2024 3:40 AM EDT 11/30/2024 4:10 AM EDT us Huey Hurtado MD LAB BLOOD ORDERABLES Final Resul t Performing Organization Address City/[facility] Co de Phone Number [facility] [address] [phone] * (ABNORMAL) Prothrombin time/INR (11/30/2024 3:40 AM EDT) Protime 12.9(H) 9.0 - 12.0 seconds 11/30/2024 4:32 AM EDT [facility] INR 1.17(H) 0.80 - 1.10 11/30/2024 4:32 AM EDT [facility] Comment: Recommended therapeutic ranges using International [...] Final Resul t Performing Organization Address City/State/[facility] Co de Phone Number [facility] [address] [phone] * (ABNORMAL) Uric acid (11/30/2024 3:40 AM EDT) Uric Acid 11.2(H) 2.5 - 6.2 mg/dL 11/30/2024 12:18 PM EDT [facility] Blood Venipuncture / Unknown 11/30/2024 3:40 AM EDT 11/30/2024 4:09 AM EDT us Hill Boo MD LAB BLOOD ORDERABLES Final Resu lt Performing Organization Address [facility] Co de Phone Number [facility] [address] [phone] * (ABNORMAL) Lactate dehydrogenase (LDH) (11/30/2024 3:40 AM EDT) LDH 261(H) 125 - 220 U/L 11/30/2024 12:18 PM EDT [facility] Blood Venipuncture / Unknown 11/30/2024 3:40 AM EDT 11/30/2024 4:09 AM EDT us Hill Boo MD LAB BLOOD ORDERABLES Final Resu lt Performing Organization Address [facility]/ZIP Co de Phone Number [facility] [address] [phone] * Iron, serum (11/30/2024 3:40 AM EDT) Iron 64 50 - 170 ug/dL 11/30/2024 8:10 AM EDT [facility] Blood Venipuncture / Unknown 11/30/2024 3:40 AM EDT 11/30/2024 4:09 AM EDT us Timothy Bai MD LAB BLOOD ORDERABLES Final Result [facility] [address] [phone] * Folate, Serum (11/30/2024 3:40 AM EDT) Folate 7.0 7.0 - 31.4 ng/mL 11/30/2024 6:08 PM EDT [facility] Blood Venipuncture / Unknown 11/30/2024 3:40 AM EDT 11/30/2024 4:09 AM EDT us Rommel Batista MD LAB BLOOD ORDERABLES Final Res ult Performing Organization Address [facility]/ZIP Co de Phone Number [facility] [address] [phone] * Vitamin B12 (11/30/2024 3:40 AM EDT) Vitamin B12 678 213 - 816 pg/mL 11/30/2024 8:10 AM EDT [facility] Blood Venipuncture / Unknown 11/30/2024 3:40 AM EDT 11/30/2024 4:09 AM EDT us Timothy Bai MD LAB BLOOD ORDERABLES Final Result Performing Organization Address [facility] Co de Phone Number [facility] [address] [phone] * EKG-SCANNED (11/30/2024) Only the most recent of3 resultswithin the time period is included. Narrative 11/30/2024 Ordered by an unspecified provider. us Default Scanning Provider SCAN ORDERS Final Result from Last 3 Months Insurance [facility] Advance Directives For more information, please contact: [phone] * Full Code (Latest Code Status on File) Date Activated Date Inactivated Comments 11/30/2024 2:06 AM 12/14/2024 6:30 PM Care Teams Consulting Sales Manager Relationship Specialty Start Date End Date Provider, Not In System [place] PCP - General 12/14/24
--- OUTSIDE RECORDS SUMMARY | 2025-01-10 10:33 | XMS_ITS | Encounter Summary ---
Author Organization Healthcare Address [address] 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, unspecified vessel or lesion type (CMS/HCC) Social History Tobacco Use Types Packs/Day Years [...] (mild) Microalbuminuria Proteinuria 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, unspecified vessel or lesion type (CMS/HCC) documented in this encounter Additional Health Concerns Assessment Noted Time A fall risk assessment has been complete d for the patient 01/02/2022 1:17 PM EDT A Body Mass Index follow-up plan has been documented for the patient 11/13/2022 11:41 AM EDT documented as of this encounter Care Teams Social Work Professor Relationship Specialty Start Date End Date Lrary Bedolla MD [address] [facility] [place] [phone] PCP - General 12/08/20 Sary Brannon APRN [address] [place] [address] Referring Physician Gastroenterology 01/07/25 documented as of this encounter
--- OUTSIDE RECORDS SUMMARY | 2025-01-10 10:33 | XMS_ITS | Encounter Summary ---
Author Organization [facility] Address [address] [place] [address] Care Team Providers Care Wood Treating Inspector Name Role Phone [facility], Find-A-Doc Primary Care Provider Reason for Visit * Reason Onset Date Comments Appointment 12/06/2024 Encounter Details Date Type Department Care Team (Late st Contact Info) Description 12/06/2024 Telephone [facility] - [place] [address] [place] [address] Mimi Moreno, RN Appointment Social [...] Do you speak a language other than [place] [facility]? No 11/30/2024 Do you want help [...] Description 01/27/2025 10:45 AM EDT Office Visit [facility] Electrophysiology [address] [place] [phone] Quincy Foss MD [address] [place] [address] [address] [place] [address] documented as of this encounter Visit Diagnoses Not on filedocumented in this encounter Care Teams Wood Treating Inspector Relationship Specialty Start Date End Date [facility], Find-A-Doc [facility] [place] [address] PCP - General 11/30/24 12/13/24 documented as of this encounter
--- OUTSIDE RECORDS SUMMARY | 2025-01-10 10:36 | XMS_ITS | Clinical Summary ---
Author Organization [employer] Address [address] [place] [address] Care Team Providers Care Heel Nail Rasper Name Role Phone Provider, Not In System [...] total) by mouth daily Look-alike/ Sound-alike medication. Discontinued(St op Taking at Discharge) bisoprolol (ZEBETA) [...] 30 days. 30 tablet 12/08/19 25 025 ergocalciferol (DRISDOL) 1,250 mcg (50,000 unit) capsule Take 1 capsule (50,000 Units total) by mouth every 7 days for 30 days. 4 capsule 12/08/19 25 025 amoxicillin-cl avulanate (AUGMENTIN) 500-125 mg per tablet [...] Daily Amount: 600 mg 12/08/19 025 Discontinued bumetanide (BUMEX) 1 MG tablet Take 1 tablet (1 mg total) by mouth 2 (two) times daily. 12/09/19 25 025 Discontinued(St op Taking at Discharge) spironolactone (ALDACTONE) 25 MG tablet Take 0.5 tablets (12.5 mg total) by mouth daily. 12/10/19 25 025 Discontinued metOLazone (ZAROXOLYN) 2.5 MG tablet Take 1 tablet (2.5 mg total) by mouth daily. 30 tablet 12/16/19 25 025 Discontinued tamsulosin (FLOMAX) 0.4 mg cap [...] Type Department Care Team Description 12/06/2024 Telephone [facility] [address] [place] [address] Mimi Moreno RN Appointment 12/01/2024 9:19 AM EDT - 12/01/2024 9:50 AM EDT Surgery [facility] Endoscopy [address] [place] [id number] Scott Daley MD EGD, WITH FOREIGN BODY REMOVAL 12/01/2024 8:55 AM EDT Anesthesia Event [facility] Endoscopy [address] [place] [id number] Ashtyn Sanchez MD 11/30/2024 1:43 AM EDT - 12/14/2024 5:30 PM EDT Hospital Encounter [facility] 5B Medical Telemetry Unit 1 [place] [id number] Albert Garcia MD Shamsulddin, Haider, MD Zohary, [...] the past 12 months, has t he [employer], gas, oil, or water [employer] threatened to shut off services in your [...] Do you speak a language other than [place] at [facility]? No 11/30/2024 Do you [...] Description 01/27/2025 10:45 AM EDT Office Visit [facility] Electrophysiology [address] [place] [address] Deysi Jon MD [address] [place] [address] [address] [place] [address] Health Maintenance Due Date Last Done Comments [...] 05/13/2021, 04/15/2021, 11/08/2020 Medicare IPPE ([facility]) [id number] 07/28/2024 Influenza Vaccine (Season Ended) 2025 [...] GLUCOSE POC Routine 12/13/2024 5:46 AM EDT [facility] CBC SCAN Routine 12/13/2024 3:15 AM [...] GLUCOSE POC Routine 12/12/2024 5:43 AM EDT [facility] CBC SCAN Routine 12/12/2024 3:47 AM [...] ANESTHESIA INTUBATION Routine 12/01/2024 9:[address] EGD FLEXIBLE FOREIGN BODY REMOVAL 12/01/2024 8:55 [...] PARACENTESIS Routine 11/30/2024 4:17 PM EDT CYTOLOGY ([facility]) AP Routine 11/30/2024 4:03 PM EDT Melena PROTEIN, BODY FLUID Routine 11/30/2024 4 :03 PM EDT GLUCOSE, BODY FLUID Routine 11/30/2024 4 :03 PM EDT BODY FLUID/CSF- PATH REVIEW [facility] ONLY ([facility]) Routine 11/30/2024 4:03 PM EDT Melena [facility] DIFFERENTIAL, BODY FLUID Routine 11/30/2024 4:03 [...] of63 resultswithin the time period is included. [facility] POC-GLUCOSE 203(H) 70 - 110 mg/dL 12/14/2024 3:42 PM EDT [facility] Comment: In the event of poor peripheral blood flow, venous or arterial blood should be used due to the potential of erroneous results. Notified Nurse RBV Mica Inspector [phone] 12/14/2024 3:42 PM EDT [facility] Blood WHOLE BLOOD / Unknown 12/14/2024 3:41 PM EDT 12/14/2024 3:42 PM EDT Narrative [facility] - 12/14/2024 3:42 PM EDT Mica Inspector ID is - [id number] David Coffman PA-C POINT OF CARE TEST ORDERABLES Final Result Performing Organization Address City/State/[facility] Co de Phone Number [facility] [address] [phone] * ECG 12 lead (12/14/2024 9:10 AM EDT) Only the most recent of13 resultswithin the time period is included. [facility] VENTRICULAR RATE EKG/MIN 89 BPM GE MUSE ATRIAL RATE (MCT) [address] Interval 146 ms GE MUSE QRS-INTERVAL (MSEC) 86 ms GE MUSE QT Interval 432 ms GE MUSE QTC Interval 525 ms GE MUSE P [place] 34 degrees GE MUSE R AXIS (MCT) -13 degrees GE MUSE T Wave [place] -2 degrees GE MUSE Sublette Diagnosis Normal sinus rhythm Septal infarct (cited on or before 14-DEC-2024 ) Confirmed by DEYSI JON M.D. ([id number]) on 12/14/2024 5:07:26 PM GE MUSE 12/14/2024 9:10 AM EDT 12/14/2024 5:07 PM EDT us Deysi Jon MD ECG ORDERABLES Final Result BJ JUAREZ * (ABNORMAL) CBC with automated diff (12/14/2024 2:54 AM EDT) Only the most recent of7 resultswithin the time period is included. WBC 1.4(LL) 4.0 - 10.0 K/ L 12/14/2024 3:45 AM EDT [facility] RBC 2.45(L) 3.93 - 5.22 M/ L 12/14/2024 3:45 AM EDT [facility] Hemoglobin 7.6(L) 11.2 - 15.7 GM/DL 12/14/2024 3:45 AM EDT [facility] Hematocrit 24.1(L) 34.1 - 44.9 % 12/14/2024 3:45 AM EDT [facility] MCV 98(H) 79 - 95 fL 12/14/2024 3:45 AM EDT [facility] MCH 31.0 25.6 - 32.2 pg 12/14/2024 3:45 AM EDT [facility] MCHC 31.5(L) 32.2 - 35.5 GM/DL 12/14/2024 3:45 AM EDT [facility] RDW 16.3(H) 11.7 - 14.4 % 12/14/2024 3:45 AM EDT [facility] Platelets 51(L) 140 - 375 K/CU MM 12/14/2024 3:45 AM EDT [facility] MPV 12.3 9.4 - 12.3 fL 12/14/2024 3:45 AM EDT [facility] % Neutros 54 34 - 71 % 12/14/2024 3:45 AM EDT [facility] % Lymphs 32 19 - 52 % 12/14/2024 3:45 AM EDT [facility] % Monos 14(H) 5 - 13 % 12/14/2024 3:45 AM EDT [facility] % Eos 0(L) 1 - 6 % 12/14/2024 3:45 AM EDT [facility] % Baso 1 0 - 1 % 12/14/2024 3:45 AM EDT [facility] NRBC Absolute <0.01 0 - 0.012 K/ul 12/14/2024 3:45 AM EDT [facility] # Neutros 0.76(L) 1.56 - 6.13 K/ L 12/14/2024 3:45 AM EDT [facility] # Lymphs 0.45(L) 1.18 - 3.74 K/ L 12/14/2024 3:45 AM EDT [facility] # Monos 0.19(L) 0.24 - 0.86 K/ L 12/14/2024 3:45 AM EDT [facility] # Eos <0.03(L) 0.04 - 0.36 K/ L 12/14/2024 3:45 AM EDT [facility] # Baso <0.03 0.01 - 0.08 K/ L 12/14/2024 3:45 AM EDT [facility] Immature Granulocytes-Re lative 0.00(L) 0.01 - 0.43 % 12/14/2024 3:45 AM EDT [facility] # IG <0.03 0.00 - 0.03 K/uL 12/14/2024 3:45 AM EDT [facility] Blood Venipuncture / Unknown 12/14/2024 2:54 AM EDT 12/14/2024 3:27 AM EDT Narrative [facility] - 12/14/2024 3:45 AM [...] PA-C LAB BLOOD ORDERABLES Final Re sult [facility] [address] [place] [address], [facility] [phone] * (ABNORMAL) Comprehensive metabolic panel (12/14/2024 2:54 AM EDT) Only the most recent of9 resultswithin the time period is included. Sodium 145 136 - 145 meq/L 12/14/2024 4:13 AM EDT [facility] Potassium 3.5 3.4 - 5.1 meq/L 12/14/2024 4:13 AM EDT [facility] Chloride 109 98 - 112 meq/L 12/14/2024 4:13 AM EDT [facility] CO2 27 22 - 29 meq/L 12/14/2024 4:13 AM EDT [facility] Calcium 8.6 8.4 - 10.2 mg/dL 12/14/2024 4:13 AM EDT [facility] Glucose 146(H) 82 - 115 mg/dL 12/14/2024 4:13 AM EDT [facility] BUN 67.7(H) 9.8 - 20.1 mg/dL 12/14/2024 4:13 AM EDT [facility] Creatinine 2.22(H) 0.57 - 1.11 mg/dL 12/14/2024 4:13 AM EDT [facility] BUN/Creatinine 30(H) 8 - 20 12/14/2024 4:13 AM EDT [facility] eGFR (mL/min/1.73m2) 25(L) >=60 mL/min/1. 73m2 12/14/2024 4:13 AM EDT [facility] Albumin 3.2(L) 3.5 - 5.0 g/dL 12/14/2024 4:13 AM EDT [facility] Alkaline Phosphatase 56 40 - 150 U/L 12/14/2024 4:13 AM EDT [facility] ALT 21 <=34 U/L 12/14/2024 4:13 AM EDT [facility] Comment: ALT2 reagent used for testing does not contain P5P supplementation and therefore may miss ALT elevations in patients with B6 deficiency. This population may be as high as 10% in the [place], with risk factors including malabsorption, drug interactions, and alcoholic hepatitis. AST 52(H) 11 - 34 U/L 12/14/2024 4:13 AM EDT [facility] Comment: AST2 reagent used for testing does not contain P5P supplementation and therefore may miss AST elevations in patients with B6 deficiency. This population may be as high as 10% in the [place], with risk factors including malabsorption, drug interactions, and alcoholic hepatitis. Total Bilirubin 0.9 0.2 - 1.2 mg/dL 12/14/2024 4:13 AM EDT [facility] Protein, Total 5.9(L) 6.4 - 8.3 g/dL 12/14/2024 4:13 AM EDT [facility] Globulin 2.7 2.5 - 4.1 g/dL 12/14/2024 4:13 AM EDT [facility] Anion Gap 13(H) 4 - 12 12/14/2024 4:13 AM EDT [facility] A/G Ratio 1.2 0.7 - 1.9 12/14/2024 4:13 AM EDT [facility] Osmolality Calc 311.0 mOsm/kg 4:13 AM EDT [facility] Blood Venipuncture / Unknown 12/14/2024 2:54 AM EDT 12/14/2024 3:26 AM EDT David Coffman PA-C LAB BLOOD ORDERABLES Final Re sult [facility] [address] [phone] * (ABNORMAL) CBC Scan (12/13/2024 3:15 AM EDT) Only the most recent of2 resultswithin the time period is included. Platelet Estimate Decreased (A) Adequate 12/13/2024 4:55 AM EDT [facility] RBC Morphology abnormal( A) Normal 12/13/2024 4:55 AM EDT [facility] Anisocytosis 1+ 12/13/2024 4:55 AM EDT [facility] Hypochromia 1+ 12/13/2024 4:55 AM EDT [facility] Ovalocytes 1+ 12/13/2024 4:55 AM EDT [facility] Blood Venipuncture / Unknown 12/13/2024 3:15 AM EDT 12/13/2024 3:27 AM EDT us Venkatesh Stephen MD LAB BLOOD ORDERABLES Final Resul t [facility] [address] [phone] * (ABNORMAL) Hepatic function panel (12/13/2024 3:15 AM EDT) Protein, Total 5.7(L) 6.4 - 8.3 g/dL 12/13/2024 4:13 AM EDT [facility] Albumin 3.1(L) 3.5 - 5.0 g/dL 12/13/2024 4:13 AM EDT [facility] Total Bilirubin 0.8 0.2 - 1.2 mg/dL 12/13/2024 4:13 AM EDT [facility] Bilirubin, Direct 0.4 0.0 - 0.5 mg/dL 12/13/2024 4:13 AM T [facility] Alkaline Phosphatase 53 40 - 150 U/L 12/13/2024 4:13 AM EDT [facility] Globulin 2.6 2.5 - 4.1 g/dL 12/13/2024 4:13 AM EDT [facility] A/G Ratio 1.2 0.7 - 1.9 12/13/2024 4:13 AM EDT [facility] AST 42(H) 11 - 34 U/L 12/13/2024 4:13 AM T [facility] Comment: AST2 reagent used for testing does not contain P5P supplementation and therefore may miss AST elevations in patients with B6 deficiency. This population may be as high as 10% in the [place], with risk factors including malabsorption, drug interactions, and alcoholic hepatitis. ALT 16 <=34 U/L 12/13/2024 4:13 AM EDT [facility] Comment: ALT2 reagent used [...] MD LAB BLOOD ORDERABLES Final Resu lt [facility] [address] [phone] * (ABNORMAL) Basic Metabolic Panel (12/13/2024 3:15 AM EDT) Only the most recent of6 resultswithin the time period is included. Sodium 147(H) 136 - 145 meq/L 12/13/2024 4:13 AM EDT [facility] Potassium 3.5 3.4 - 5.1 meq/L 12/13/2024 4:13 AM EDT [facility] CO2 27 22 - 29 meq/L 12/13/2024 4:13 AM EDT [facility] Chloride 110 98 - 112 meq/L 12/13/2024 4:13 AM EDT [facility] Glucose 135(H) 82 - 115 mg/dL 12/13/2024 4:13 AM EDT [facility] BUN 71.9(H) 9.8 - 20.1 mg/dL 12/13/2024 4:13 AM EDT [facility] Creatinine 2.29(H) 0.57 - 1.11 mg/dL 12/13/2024 4:13 AM T [facility] BUN/Creatinine 31(H) 8 - 20 12/13/2024 4:13 AM EDT [facility] Calcium 8.5 8.4 - 10.2 mg/dL 12/13/2024 4:13 AM EDT [facility] Anion Gap 14(H) 4 - 12 12/13/2024 4:13 AM EDT [facility] eGFR (mL/min/1.73m2) 24(L) >=60 mL/min/1.7 3m2 12/13/2024 4:13 AM EDT [facility] Osmolality Calc 315.6 mOsm/kg 4:13 AM EDT [facility] Blood Venipuncture / Unknown 12/13/2024 3:15 AM EDT 12/13/2024 3:39 AM EDT us Venkatesh Stephen MD LAB BLOOD ORDERABLES Final Resul t [facility] [address] [phone] * US paracentesis (12/10/2024 11:37 AM EDT) [...] Ascites. ATTENDING PHYSICIAN: Dr. Haseeb Gil PHYSICIAN HVAC FIELD SERVICE TECHNICIAN: Sujit Blackman PA-C FINDINGS: After informed consent [...] Ascites. ATTENDING PHYSICIAN: Dr. Haseeb Gil PHYSICIAN HVAC FIELD SERVICE TECHNICIAN: Sujit Blackman PA-C FINDINGS: After informed consent [...] Blackman PA-C. us Mary Carmen Mcfadden MD [facility] US ORDERABLES Final Result * ALT (SGPT) (12/10/2024 9:53 AM EDT) ALT 12 <=34 U/L 12/10/2024 11:02 AM EDT [facility] Comment: ALT2 reagent used [...] MD LAB BLOOD ORDERABLES Final Resul t [facility] 1 [place], [place] [address] [phone] * (ABNORMAL) AST (SGOT) (12/10/2024 9:53 AM EDT) AST 39(H) 11 - 34 U/L 12/10/2024 11:02 AM EDT [facility] Comment: AST2 reagent used for testing does not contain P5P supplementation and therefore may miss AST elevations in patients with B6 deficiency. This population may be as high as 10% in the [place], with risk factors including malabsorption, drug interactions, and alcoholic hepatitis. [employer] has become aware of sulfasalazine and sulfapyridine [...] MD LAB BLOOD ORDERABLES Final Resul t [facility] [address] [phone] * Magnesium (12/10/2024 9:53 AM EDT) Only the most recent of9 resultswithin the time period is included. Magnesium 2.3 1.6 - 2.6 mg/dL 12/10/2024 11:02 AM EDT [facility] Blood Venipuncture / Unknown 12/10/2024 9:53 AM EDT 12/10/2024 10:39 AM EDT Deysi Jon MD LAB BLOOD ORDERABLES Final Resul t [facility] [address] [phone] * XR chest AP portable (12/10/2024 9:10 [...] 7.35 - 7.45 12/10/2024 6:51 AM EDT [facility] pCO2, Arterial 49(H) 35 - 45 mm Hg 12/10/2024 6:51 AM EDT [facility] pO2, Arterial 119(H) 80 - 100 mm Hg 12/10/2024 6:51 AM EDT [facility] HCO3, Arterial 24 20 - 26 mmol/L 12/10/2024 6:51 AM EDT [facility] Base Excess, Arterial -2.4(L) -2.0 - 2.0 mmol/L 12/10/2024 6:51 AM EDT [facility] O2 Sat, Arterial >99.2 95.0 - 100.0 % 12/10/2024 6:51 AM EDT [facility] Comment:notified at read-anny k verification CTO2 ARTERIAL 11.9 mmol/L 12/10/2024 6:51 AM EDT [facility] THB ARTERIAL 8.5(L) 12.0 - 18.0 g/dL 12/10/2024 6:51 AM EDT [facility] S[facility] COLLECTION SITE Left Radial 12/10/2024 6:51 AM EDT [facility] Arterial Puncture Yes 12/10/2024 6:51 AM EDT [facility] Blood Gas O2 Delivery Device Cannula 12/10/2024 6:51 AM EDT [facility] Oxygen Flow Rate 4 12/11/19 25 6:51 AM EDT [facility] Blood Gas PT Temperature C 37.0 12/10/2024 6:51 AM EDT [facility] Sen's Test Acceptable 12/10/2024 6:51 AM EDT [facility] ABG Number of Draw Attempts 1 12/10/2024 6:51 AM EDT [facility] FIO2 12/10/2024 6:51 AM EDT [facility] Blood Gas Temperature Corrected Results No No 12/10/2024 6:51 AM EDT [facility] Blood, Arterial Collection / Unknown 12/10/2024 6:42 AM EDT 12/10/2024 6:51 AM EDT us Blanka Alvarez MD LAB BLOOD ORDERABLES Final Re sult [facility] [address] [place] [id number] [phone] * (ABNORMAL) CBC - Hemogram ([facility]) (12/09/2024 3:38 AM EDT) Only the most recent of8 resultswithin the time period is included. WBC 2.4(L) 4.0 - 10.0 K/ L 12/09/2024 3:59 AM EDT [facility] RBC 2.83(L) 3.93 - 5.22 M/ L 12/09/2024 3:59 AM EDT [facility] Hemoglobin 8.5(L) 11.2 - 15.7 GM/DL 12/09/2024 3:59 AM EDT [facility] Hematocrit 28.0(L) 34.1 - 44.9 % 12/09/2024 3:59 AM EDT [facility] MCV 99(H) 79 - 95 fL 12/09/2024 3:59 AM EDT [facility] MCH 30.0 25.6 - 32.2 pg 12/09/2024 3:59 AM EDT [facility] MCHC 30.4(L) 32.2 - 35.5 GM/DL 12/09/2024 3:59 AM EDT [facility] RDW 17.2(H) 11.7 - 14.4 % 12/09/2024 3:59 AM EDT [facility] Platelets 55(L) 140 - 375 K/CU MM 12/09/2024 3:59 AM EDT [facility] MPV 11.5 9.4 - 12.3 fL 12/09/2024 3:59 AM EDT [facility] Blood Venipuncture / Unknown 12/09/2024 3:38 AM EDT 12/09/2024 3:45 AM EDT us Mary Carmen Mcfadden MD LAB BLOOD ORDERABLES Final Resu lt [facility] [address] [place] [address], [facility] [phone] * Erythropoietin(SENDOUT) (12/07/2024 3:59 AM EDT) Erythropoietin 19 4 - 27 mU/mL 12/08/2024 2:30 PM EDT [facility] Comment: INTERPRETIVE INFORMATION: Erythropoietin Normal serum concentrations [...] benefit from therapy with recombinant EPO ([facility] [id number]). Performed By: [facility] [address] [place] [address] Canopy Stringer: Lalo Mortensen MD, PhD CLIA Number: [id number] Blood Venipuncture / Unknown 12/07/2024 3:59 AM EDT 12/07/2024 4:11 AM EDT us Ariel Mills MD LAB BLOOD ORDERABLES Final Res ult [facility] [address] [place] [address], [facility] [phone] * Ammonia (12/07/2024 3:59 AM EDT) Only the most recent of8 resultswithin the time period is included. Ammonia 44 18 - 72 mol/L 12/07/2024 4:37 AM EDT [facility] Blood Venipuncture / Unknown 12/07/2024 3:59 AM EDT 12/07/2024 4:22 AM EDT Timothy Bai MD LAB BLOOD ORDERABLES Final Result Performing Organization Address City/[facility]/ZIP Co de Phone Number [facility] [address] [phone] * (ABNORMAL) Ferritin (12/06/2024 3:13 AM EDT) Only the most recent of2 resultswithin the time period is included. Ferritin 256.82(H) 4.63 - 204.00 ng/mL 12/06/2024 8:25 AM EDT [facility] Blood Venipuncture / Unknown 12/06/2024 3:13 AM EDT 12/06/2024 3:50 AM EDT Ariel Mills MD LAB BLOOD ORDERABLES Final Res ult Performing Organization Address [facility]/ZIP Co de Phone Number [facility] [address] [phone] * (ABNORMAL) Hemoglobin (12/05/2024 3:36 PM EDT) Only the most recent of11 resultswithin the time period is included. Hemoglobin 8.1(L) 11.2 - 15.7 GM/DL 12/05/2024 3:57 PM EDT [facility] Blood Venipuncture / Unknown 12/05/2024 3:36 PM EDT 12/05/2024 3:47 PM EDT Timothy Bai MD LAB BLOOD ORDERABLES Final Result Performing Organization Address City/[facility]/ZIP Co de Phone Number [facility] [address] [phone] * ANCA Vasculitis Profile(SENDOUT) (12/04/2024 8:15 AM EDT) Myeloperoxidase (MPO) Ab, IgG 0 0 - 19 AU/mL 12/07/2024 8:52 AM EDT [facility] Comment: INTERPRETIVE INFORMATION: Myeloperoxidase Abs, IgG 19 AU/mL or Less ......... Negative 20-25 AU/mL .............. Equivocal 26 AU/mL or Greater ...... Positive Approximately 90% of patients with a P-ANCA pattern by IFA have antibodies specific for MPO. Serine Proteinase 3 (PR3) Ab, IgG 0 0 - 19 AU/mL 12/07/2024 8:52 AM EDT [facility] Comment: INTERPRETIVE INFORMATION: Serine Proteinase 3, IgG 19 AU/mL or Less ........ Negative 20-25 AU/mL ............. Equivocal 26 AU/mL or Greater ..... Positive Approximately 85% of patients with a C-ANCA pattern by IFA have antibodies specific for PR3. ANCA IFA Titer <1:20 <1:20 12/07/2024 8:52 AM EDT [facility] ANCA IFA Pattern None Detected None Detected 12/07/2024 8:52 AM EDT [facility] Comment: INTERPRETIVE INFORMATION: ANCA IFA Pattern Neutrophil Cytoplasmic Antibodies (C-ANCA = granular cytoplasmic staining, P-ANCA = perinuclear staining) are found in the serum of over 90 percent of patients with certain necrotizing systemic vasculitides, and usually in less than 5 percent of patients with collagen vascular disease or arthritis. Performed By: [facility] [address] [place] [address] Canopy Stringer: Lalo Mortensen MD, PhD CLIA Number: [id number] Blood Venipuncture / Unknown 12/04/2024 8:15 AM EDT 12/04/2024 8:32 AM EDT us Hema Cervantes MD LAB BLOOD ORDERABLES Final Re sult [facility] [address] [place] [address], [facility] [phone] * JEANA Reflexive Profile(SENDOUT) (12/04/2024 8:15 AM EDT) Anti-Nuclear Ab (JEANA), IgG by SHARON None Detected None Detected 12/06/2024 3:51 PM EDT [facility] Comment: No Anti-Nuclear Antibodies (JEANA) detected by SHARON. The Extractable Nuclear Antigen Antibodies (ORTHOPEDIC ASSISTANT, [place], SSA 52, SSA 60, Scleroderma, Lilia-1 and SSB) and Double Stranded DNA (dsDNA) Antibody, IgG will not be performed. If suspicion of connective tissue disease is strong, and JEANA is negative by SHARON, consider testing for JEANA by IFA ([id number]). INTERPRETIVE INFORMATION: Anti-Nuclear Antibodies (JEANA), IgG by SHARON Antinuclear Antibodies (JEANA), IgG by SHARON: JEANA specimens are screened using enzyme-linked immunosorbent assay (SHARON) methodology. All SHARON results reported as Detected are further tested by indirect fluorescent assay (IFA) using HEp-2 substrate with an IgG-specific conjugate. The JEANA SHARON screen is designed to detect antibodies against dsDNA, histones, SS-A (Ro), SS-B (La), Llanes, [place]/ORTHOPEDIC ASSISTANT, Scl-70, Lilia-1, centromeric proteins, other antigens extracted from the HEp-2 cell nucleus. JEANA SHARON assays have been reported to have lower sensitivities than JEANA IFA for systemic autoimmune rheumatic diseases (SARD). Negative results do not necessarily rule out SARD. Performed By: [facility] [address] [place] [address] Canopy Stringer: Lalo Mortensen MD, PhD CLIA Number: [id number] Blood Venipuncture / Unknown 12/04/2024 8:15 AM EDT 12/04/2024 8:32 AM EDT us Hema Cervantes MD LAB BLOOD ORDERABLES Final Re sult [facility] [address] [place] [address], [facility] [phone] * Phosphorus (12/04/2024 3:34 AM EDT) Phosphorus 4.2 2.5 - 4.5 mg/dL 12/04/2024 4:04 AM EDT [facility] Blood Venipuncture / Unknown 12/04/2024 3:34 AM EDT 12/04/2024 3:41 AM EDT Kirstymalinda Tuttle APRN LAB BLOOD ORDERABLES Final R esult Performing Organization Address City/[facility]/ZIP Co de Phone Number [facility] [address] [phone] * Creatine Kinase (CK) (12/03/2024 7:39 AM EDT) Only the most recent of2 resultswithin the time period is included. Total CK 55 29 - 168 U/L 12/03/2024 6:19 PM EDT [facility] Blood Venipuncture / Unknown 12/03/2024 7:39 AM EDT 12/03/2024 5:52 PM EDT Hema Cervantes MD LAB BLOOD ORDERABLES Final Re sult Performing Organization Address City/[facility]/ZIP Co de Phone Number [facility] [address] [phone] * Transfuse RBC (12/02/2024 5:03 PM EDT) Only the most recent of2 resultswithin the time period is included. Timothy Bai MD FS_MODEL_IP_BLOOD TRANSFUS ION ORDERABLES [...] Pancytopenia. ATTENDING RADIOLOGIST: Dr. Haseeb Gil. PHYSICIAN HVAC FIELD SERVICE TECHNICIAN: Sandra Ramsey PA-C PROCEDURE: After informed consent [...] Pancytopenia. ATTENDING RADIOLOGIST: Dr. Haseeb Gil. PHYSICIAN HVAC FIELD SERVICE TECHNICIAN: Sandra Ramsey PA-C PROCEDURE: After informed consent [...] by Sandra Ramsey PA-C. Rommel Batista MD [facility] ORDERABLES Final Result * [facility] BONE MARROW SMEAR, ASPIRATION, AND STAIN (12/02/2024 12:06 PM EDT) AP RESULT See Note: [facility]Y [facility]TOLOGY LAB[facility]ATORY Comment: [facility] [address] [place] [id number] or [phone] Joe Carlos M.D., Wire Communications Engineer PATIENT NAME LABORATORY NO. 170MARY PETERSEN. [id number] [facility] AGE SEX SSN CLIENT REF # [id number] F [id number] 1 [place] [address] REQUESTING Mirtha. ATTENDING Aleksandr. COPY TO.. ROMMEL BATISTA DATE COLLECTED DATE RECEIVED DATE REPORTED 12/02/2024 12/02/2024 12/06/2024 ADDENDUM PRESENT ADDENDUM: Cytogenetics shows a normal female karyotype, 46,XX[20]. The original diagnosis remains unchanged. Verified by Heydi Mak M.D., MPH on 12/13/2024 Professional interpretation rendered by Heydi Mak M.D., MPH at [facility], [address] [place] [address]. DIAGNOSIS: PERIPHERAL SMEAR , BONE MARROW ASPIRATION [...] CD38, CD45, CD56, CD57, CD117, CD123, HLA-DR, [place], and Lambda. These tests use analyte specific [...] rendered by Heydi Mak M.D., MPH at [facility], [place], [address] [place] [address]. GROSS DESCRIPTION: A. Received 1 peripheral blood smear slide for review. B. Received 5 bone marrow aspirate smear slides for review. 4 additional bone marrow aspirate smear slides made at [facility]. C. Received in a purple top [...] BY: Heydi Mak M.D., MPH CPT CODES: 59118, 2FLP, 73663, [id number], [id number], 31133, 32654, [id number] Bone Marrow BONE MARROW STRUCTURE / Unknown 12/02/2024 12:06 PM EDT us Rommel Batista MD PATHOLOGY/CYTOLOGY ORDERABLES Edited Result - Final [facility]AT[facility] [address] * Prepare RBC: 1 Units (12/02/2024 9:36 AM EDT) Only the most recent of2 resultswithin the time period is included. Issue Date/Time [id number] [facility] ([place] Product Identification Red Blood Cells [facility] ([place] Product Code [id number] [facility]) Status Information Transfused [facility]) Unit Number [id number] [facility] BLOOD [facility] ([place]) Blood Type 5100 [facility] ([place] Cross Match Results Compatible [facility] ([place]) us Timothy Bai MD FS_MODEL_IP_BLOOD BANK PRO DUCT ORDERABLES Final Result [facility] ([place]) [address] [phone] * (ABNORMAL) Hemoglobin and hematocrit (12/02/2024 7:40 AM EDT) Hemoglobin 7.4(L) 11.2 - 15.7 GM/DL 12/02/2024 9:43 AM EDT [facility] Hematocrit 23.4(L) 34.1 - 44.9 % 12/02/2024 9:43 AM EDT [facility] Blood Venipuncture / Unknown 12/02/2024 7:40 AM EDT 12/02/2024 7:47 AM EDT us Timothy Bai MD LAB BLOOD ORDERABLES Final Result [facility] 1 [place], [place] [address] [phone] * AN SINGLE LUMEN INTUBATION (12/01/2024 9:01 [...] O Positive 12/01/2024 4:53 AM EDT [facility] ([place]) Antibody Screen Negative 12/01/2024 4:53 AM EDT [facility] ([place]) HISTCHK HIST CHECK PERFORMED 12/01/2024 4:53 AM EDT [facility] ([place]) Blood Venipuncture / Unknown 12/01/2024 7:08 AM EDT 12/01/2024 7:15 AM EDT us Denilson Hodgson DO [facility] BLOOD BANK TEST ORDERABLES Final Result Performing Organization Address City/[facility]/ZIP Co de Phone Number [facility] ([place]) 1 [facility] [place] [address], [facility] [phone] * ABO/RH Confirmation/Retype (12/01/2024 4:06 AM EDT) RETYPE O Positive 12/01/2024 5:15 AM EDT [facility] ([place]) Comment:[id number] Blood Venipuncture / Unknown 12/01/2024 4:06 AM EDT 12/01/2024 5:14 AM EDT Timothy Bai MD [facility] BLOOD [facility] TEST ORDERA BLES Final Result Performing Organization Address [facility] Co de Phone Number [facility] ([place]) [address] [facility] [place] [address], [facility] [phone] * Ultrasound renal limited (11/30/2024 4:19 PM [...] - 25 % 025 8:49 PM EDT [facility] Lymphocytes Fluid 46 % 025 8:49 PM EDT [facility] Unidentified Mononuclear Cells BF 49 0 - 0 % 11/30/2024 8:49 PM EDT [facility] Peritoneal Fluid BODY FLUID / Unknown 11/30/2024 4:03 PM EDT 11/30/2024 4:33 PM EDT Huey Hurtado MD BODY FLUIDS AND STOOLS ORDERABLE S Final Result [facility] [address] [phone] * [facility] Non-Customer Liaison Cytology (11/30/2024 4:03 PM EDT) AP RESULT See Note: PATHOLOGY AND CYTOLOGY LABORATORY Comment: [facility] [address] [place] [address] or [phone] Joe Carlos M.D., Wire Communications Engineer PATIENT NAME LABORATORY NO. 170MARY PETERSEN. [id number] AGE SEX SSN CLIENT REF # [facility] [id number] F [id number] 1 [facility] REQUESTING Aleksandr ATTENDING [place] [address] HUEY HURTADO DATE COLLECTED DATE RECEIVED DATE REPORTED 11/30/2024 12/01/2024 12/02/2024 DIAGNOSIS: PERITONEAL FLUID: Negative for malignant cells. MICROSCOPIC DESCRIPTION: Scattered mesothelial cells and chronic inflammatory cells are present. Professional interpretation rendered by John Sanchez M.D., F.C.A.P. at [facility], [place], [address] [place] [address]. CLINICAL HISTORY: Melena Anasarca Acute renal failure SPECIMENS SUBMITTED: PERITONEAL FLUID GROSS SPECIMEN DESCRIPTION: 40 ccs of hazy, light yellow fluid, scant sediment, received in fixative ThinPrep slides prepared. Cell block has been examined. PATIENT ACCOUNTS MANAGER: SVITLANA HERNANDEZ (ASCP) REVIEWED, DIAGNOSED AND ELECTRONICALLY SIGNED BY: John Sanchez M.D., F.C.A.P. CPT CODES: [id number], [id number] Peritoneal Fluid BODY FLUID / Unknown 11/30/2024 4:03 PM EDT Huey Hurtado MD PATHOLOGY/CYTOLOGY ORDERABLES Fi nal Result [facility] [address] [place] [address] * Body Fluid/CSF - Path Review () (11/30/2024 4:03 PM EDT) SENT TO PATHOLOGY FOR REVIEW Yes 12/03/2024 6:54 AM EDT [facility] Scan Result Mesothelial cells. MD German 12/02/2024 12/03/2024 6:54 AM EDT [facility] Peritoneal Fluid BODY FLUID / Unknown 11/30/2024 4:03 PM EDT 11/30/2024 4:33 PM EDT us Huey Hurtado MD BODY FLUIDS AND STOOLS ORDERABLE S Final Result Performing Organization Address [facility] de Phone Number [facility] [address] [phone] * Glucose, body fluid (11/30/2024 4:03 PM EDT) Glucose, Body Fluid 107 See Comment mg/dL 12/01/2024 7:10 AM EDT [facility] BODY FLUID TYPE Peritoneal 12/01/2024 7:10 AM EDT [facility] Body Fluid PERITONEAL FLUID / Unknown 11/30/2024 4:03 PM EDT 12/01/2024 6:52 AM EDT Narrative [facility] - 12/01/2024 7:10 AM EDT This test has been modified from the surgeon/president's instructions and its performance characteristics were determined [...] ORD ERABLES Final Result Performing Organization Address [facility] Co de Phone Number [facility] [address] [phone] * Anaerobic Culture (11/30/2024 4:03 PM EDT) Result No Anaerobic growth 12/05/2024 6:34 AM EDT [facility] Peritoneal Fluid BODY FLUID / Unknown 11/30/2024 4:03 PM EDT 11/30/2024 4:34 PM EDT Narrative [facility] - 12/05/2024 6:34 AM EDT Specimen Description: peritoneal fluid us Huey Hurtado MD MICROBIOLOGY - GENERAL ORDERABLE S Final Result [facility] [address] [phone] * Body Fluid Culture + Gram Stain (11/30/2024 4:03 PM EDT) Result No growth 12/03/2024 9:07 AM EDT [facility] Gram Stain Result No organisms seen 12/03/2024 9:07 AM EDT [facility] Gram Stain Result No cells seen 12/03/2024 9:07 AM EDT [facility] Peritoneal Fluid BODY FLUID / Unknown 11/30/2024 4:03 PM EDT 11/30/2024 4:34 PM EDT Narrative [facility] - 12/03/2024 9:07 AM EDT Specimen Description: peritoneal fluid us Huey Hurtado MD MICROBIOLOGY - GENERAL ORDERABLE S Final Result Performing Organization Address [facility]/ZIP Co de Phone Number [facility] [address] [phone] * (ABNORMAL) Body fluid cell count with differential (11/30/2024 4:03 PM EDT) Appearance Cloudy(A) Clear 11/30/2024 8:49 PM EDT [facility] Color Yellow 11/30/2024 8:49 PM EDT [facility] BODY FLUID TYPE Peritoneal 11/30/2024 8:49 PM EDT [facility] Auto WBC/Nucleated Cells BF 85 /uL 11/30/2024 8:49 PM EDT [facility] Comment: Please refer to specific WBC/Nucleated Cell Count Body Fluid reference ranges below: For Pleural: 0-1000 Peritoneal: 0-1000 Pericardial:0-1000 Synovial: 0-200 Auto RBC BF <3,000 /uL 11/30/2024 8:49 PM EDT [facility] Comment: Please refer to specific RBC Cell Count Body Fluid reference ranges below: Pleural: 0-10,000 Peritoneal: 0-10,000 Pericardial:0-10,000 Synovial:0-30 Peritoneal Fluid BODY FLUID / Unknown 11/30/2024 4:03 PM EDT 11/30/2024 4:[address] [facility] - 11/30/2024 8:49 PM EDT There is normally no readily obtainable pleural, peritoneal and pericardial fluid, hence normal elements for these potential fluids are not defined. Huey Hurtado MD BODY FLUIDS AND STOOLS ORDERABLE S Final Result Performing Organization Address [facility]/State/ZIP Co de Phone Number [facility] [address] [phone] * Protein, body fluid (11/30/2024 4:03 PM EDT) Protein, Fluid 1.9 See Comment g/dL 12/01/2024 7:10 AM EDT [facility] BODY FLUID TYPE Peritoneal 12/01/2024 7:10 AM EDT [facility] Body Fluid PERITONEAL FLUID / Unknown 11/30/2024 4:03 PM EDT 12/01/2024 6:[address] [facility] - 12/01/2024 7:10 AM EDT This test has been modified from the surgeon/president's instructions and its performance characteristics were determined by the laboratory. The reference intervals and other method performance specifications are unavailable for this test. It is recommended to interpret body fluid concentrations in comparison with the corresponding serum or plasma concentrations and to integrate test results into the clinical context. Timothy Bai MD BODY FLUIDS AND STOOLS ORD ERABLES Final Result Performing Organization Address [facility]/ZIP Co de Phone Number [facility] 1 [place] [address], [facility] [phone] * Lactate dehydrogenase (LDH), body fluid (11/30/2024 4:03 PM EDT) LDH, Fluid 71 See Comment U/L 11/30/2024 6:19 PM EDT [facility] BODY FLUID TYPE Peritoneal 11/30/2024 6:19 PM EDT [facility] Peritoneal Fluid BODY FLUID / Unknown 11/30/2024 4:03 PM EDT 11/30/2024 4:33 PM EDT Narrative [facility] - 11/30/2024 6:19 PM EDT This test has been modified from the surgeon/president's instructions and its performance characteristics were determined by the laboratory. The reference intervals and other method performance specifications are unavailable for this test. It is recommended to interpret body fluid concentrations in comparison with the corresponding serum or plasma concentrations and to integrate test results into the clinical context. Huey Hurtado MD BODY FLUIDS AND STOOLS ORDERABLE S Final Result [facility] [address] [phone] * (ABNORMAL) Urinalysis, Reflex Microscopic and Culture If Indicated (11/30/2024 11:35 AM EDT) Color, UA Light Yellow 11/30/2024 12:06 PM EDT [facility] Clarity, UA Turbid(A) Clear 11/30/2024 12:06 PM EDT [facility] Specific [place], UA 1.011 1.005 - 1.030 11/30/2024 12:06 PM EDT [facility] pH, UA 5.0(L) 6.0 - 8.0 11/30/2024 12:06 PM EDT [facility] Leukocytes, UA 500 Félix/uL(A) Negative 11/30/2024 12:06 PM EDT [facility] Nitrite, UA Negative Negative 11/30/2024 12:06 PM EDT [facility] Protein, UA Negative Negative 11/30/2024 12:06 PM EDT [facility] Glucose, UA Normal Normal 11/30/2024 12:06 PM EDT [facility] Ketones, UA Negative Negative 11/30/2024 12:06 PM EDT [facility] Bilirubin, UA Negative Negative 11/30/2024 12:06 PM EDT [facility] Blood, UA Negative Negative 11/30/2024 12:06 PM EDT [facility] Urobilinogen, UA Normal Normal 11/30/2024 12:06 PM EDT [facility] Specimen Source Urine, Clean Catch 11/30/2024 12:06 PM EDT [facility] Urine URINE SPECIMEN COLLECTION, CLEAN CATCH / Unknown 11/30/2024 11:35 AM EDT 11/30/2024 11:41 AM EDT Destieny Llanes PREPARED FOODS SERVICE TEAM MEMBER URINE ORDERABLES Final Resu lt [facility] [address] [phone] * (ABNORMAL) Urinalysis Microscopic Only (11/30/2024 11:35 AM EDT) WBC, UA 21-50(A) None Seen /HPF 11/30/2024 12:06 PM EDT [facility] RBC, UA 0-2(A) None Seen /HPF 11/30/2024 12:06 PM EDT [facility] Bacteria, UA 1+(A) None Seen, Trace 11/30/2024 12:06 PM EDT [facility] Mucus 1+(A) None Seen 11/30/2024 12:06 PM EDT [facility] SQUAMOUS EPITHELIAL 3-5(A) None Seen /HPF 11/30/2024 12:06 PM EDT [facility] HYALINE CASTS 21-50(A) None Seen /LPF 11/30/2024 12:06 PM EDT [facility] Urine URINE SPECIMEN COLLECTION, CLEAN CATCH / Unknown 11/30/2024 11:35 AM EDT 11/30/2024 11:41 AM EDT us Destiney Llanes PREPARED FOODS SERVICE TEAM MEMBER URINE ORDERABLES Final Resu lt [facility] [address] [phone] * Urea Nitrogen, random urine (11/30/2024 11:35 AM EDT) Urea Nitrogen, Ur 305 mg/dL 11/30/2024 12:36 PM EDT [facility] Comment:Reference Range not established Urine 11/30/2024 11:3 5 AM EDT 11/30/2024 12:15 PM EDT us Hill Boo MD URINE ORDERABLES Final Result Performing Organization Address [facility] Co la Phone Number [facility] [address] [phone] * Protein / creatinine ratio, urine (11/30/2024 11:35 AM EDT) Creatinine, Ur 62.00 47.00 - 110.00 mg/dL 11/30/2024 12:36 PM EDT [facility] Protein Creatinine Ratio 0.19 <=0.20 11/30/2024 12:36 PM EDT [facility] Protein, Urine 12 1 - 14 mg/dL 11/30/2024 12:36 PM EDT [facility] Urine 11/30/2024 11:3 5 AM EDT 11/30/2024 12:15 PM EDT us Hill Boo MD URINE ORDERABLES Final Result Performing Organization Address [facility] Number [facility] [address] [phone] * Sodium, random urine (11/30/2024 11:35 AM EDT) Sodium Urine 83 See Comment meq/L 11/30/2024 12:36 PM EDT [facility] Comment:Reference Range not established Urine 11/30/2024 11:3 5 AM EDT 11/30/2024 12:15 PM EDT us Hill Boo MD URINE ORDERABLES Final Result Performing Organization Address [facility] Co de Phone Number [facility] [address] [phone] * Urine Culture (11/30/2024 11:35 AM EDT) Result Recollect Specimen - 3 or more organisms suggests contamination 12/01/2024 6:49 AM EDT [facility] Urine URINE SPECIMEN COLLECTION, CLEAN CATCH / Unknown 11/30/2024 11:35 AM EDT 11/30/2024 11:41 AM EDT us Destiney Llanes PREPARED FOODS SERVICE TEAM MEMBER MICROBIOLOGY - GENERAL ORDE YAKELIN Final Result [facility] [address] [phone] * (ABNORMAL) Monoclonal Protein Study, Expanded Panel(SENDOUT) [...] - 263 mg/dL 12/03/2024 12:57 PM EDT [facility] Monoclonal Protein Not Applicable <=0.00 g/dL 12/03/2024 12:57 PM EDT [facility] [place] Qnt Free Light Chains 173.10(H) 3.30 - 19.40 mg/L 12/03/2024 12:57 PM EDT [facility] Comment: INTERPRETIVE INFORMATION: [place] Qnt Free Light Chains Undetected antigen excess is a rare event but cannot be excluded. Free light chain results should always be interpreted in conjunction with other clinical and laboratory findings. Lambda Qnt Free Light Chains 123.84(H) 5.71 - 26.30 mg/L 12/03/2024 12:57 PM EDT [facility] Comment: INTERPRETIVE INFORMATION: Lambda Qnt Free Light Chains Undetected antigen excess is a rare event but cannot be excluded. Free light chain results should always be interpreted in conjunction with other clinical and laboratory findings. [place]/Lambda Free Light Chain Ratio 1.40 0.26 - 1.65 12/03/2024 12:57 PM EDT [facility] SPEP/MAEGAN Interpretation See Note 12/03/2024 12:57 PM EDT [facility] Comment: Restricted band in the [...] Serum See Note 12/03/2024 12:57 PM EDT [facility] Comment: Authorized individuals can access the [facility] Enhanced Report with an [facility] account using the following link. Your local lab can assist you in obtaining the patient report if you don't have a Connect account. [email or web address] Performed By: [facility] [address] [place] [id number] Canopy Stringer: Lalo Mortensen MD, PhD CLIA Number: [id number] Blood Venipuncture / Unknown 11/30/2024 11:01 AM EDT 11/30/2024 12:17 PM EDT Hill Boo MD LAB BLOOD ORDERABLES Final Resu lt Performing Organization Address [facility] Co de Phone Number [facility] [address] [place] [address] * Alpha Fetoprotein Tumor Marker(SENDOUT) (11/30/2024 11:01 AM EDT) [facility] Alpha Fetoprotein Tumor Marker 2 0 - 9 ng/mL 12/01/2024 3:41 PM EDT [facility] Comment: INTERPRETIVE INFORMATION: Alpha Fetoprotein Tumor Marker The Stefany Loyal Access DxI AFP method is used. Results [...] reference intervals for this test in the [facility] Test Directory ([employer]). Performed By: [facility] [address] [place] [address] Canopy Stringer: Lalo Mortensen MD, PhD CLIA Number: [id number] Blood Venipuncture / Unknown 11/30/2024 11:01 AM EDT 11/30/2024 11:06 AM EDT Destiney Llanes APRN LAB BLOOD ORDERABLES Final Result Performing Organization Address [facility] Co de Phone Number [address] [phone] * (ABNORMAL) Vitamin D, 25-Hydroxy (11/30/2024 8:20 AM EDT) Vitamin D 25-Hydroxy 22.0(L) 30 - 80 ng/mL 11/30/2024 9:48 AM EDT [facility] Blood Venipuncture / Unknown 11/30/2024 8:20 AM EDT 11/30/2024 9:08 AM EDT us Timothy Bai MD LAB BLOOD ORDERABLES Final Result Performing Organization Address [facility] de Phone Number [facility] [address] [phone] * Hemoglobin A1c (11/30/2024 8:20 AM EDT) Hemoglobin A1C 4.9 4.0 - 5.6 % 11/30/2024 9:17 AM EDT [facility] Comment: Hemoglobin A1C levels are related to mean glucose during the preceding 2-3 months. Less than 7% demonstrates glycemic control in diabetic patients. Hemoglobin AlC % Suggested Diagnosis > or = 6.5 Diabetic 5.7 - 6.4 Prediabetic <5.7 Non-diabetic eAVG Glucose 93.93 70 - 126 mg/dL 11/30/2024 9:17 AM EDT [facility] Blood Venipuncture / Unknown 11/30/2024 8:20 AM EDT 11/30/2024 9:07 AM EDT us Huey Hurtado MD LAB BLOOD ORDERABLES Final Resul t Performing Organization Address [facility] Co de Phone Number [facility] [address] [phone] * ECHO COMPLETE (DOPPLER / COLOR) WO CONTRAST (11/30/2024 7:50 AM EDT) Anatomical Region Laterality Modality Heart Vascular Ultraso und 11/30/2024 7:25 AM EDT Narrative 11/30/2024 10:46 AM EDT TRANSTHORACIC ECHOCARDIOGRAPHY REPORT Demographics Patient Name: RIN JONES : 1960 Age: 64 year(s) Corporate ID Number: [id number] Gender Female Hotel Recreational Facilities Manager: Giovanna Rock Height: 67 inches [facility] Referring Physician: HUEY HURTADO Weight: 225 pounds Interpreting JESSICA RAYMOND MD BMI: 35.24 kg/m^2 Physician: Date of Service: 11/30/2024 Blood Pressure: 118/59 mmHg Room Number: 579 Type of Study: TTE procedure: ECHO COMPLETE (DOPPLER / COLOR) W OR WO CONTRAST. Patient Status: Routine IP Study Location: [facility] Quality: Adequate visualization History/Tech Notes: Indication: shortness [...] 1.35 m/s E/A ratio: 0.97 m/s Volume diisvyrvm273.99 LV length: 8.51 cm ml Volume gztpimcp47.96 ml LVOT diameter: 1.79 cm Normal sized [...] Valve TR velocity: 2.51 m/s TR gradient: 25.38137 mmHg Estimated RAP: 3 mmHg RVSP: 28.12 [...] 1960 Age: 64 year(s) Corporate ID Number: [id number] Gender Female Hotel Recreational Facilities Manager: Giovanna Rock Height: 67 inches [facility] Referring Physician: HUEY HURTADO Weight: 225 pounds Interpreting JESSICA RAYMOND MD BMI: 35.24 kg/m^2 Physician: Date of Service: 11/30/2024 Blood Pressure: 118/59 mmHg Room Number: 579 Type of Study: TTE procedure: ECHO COMPLETE (DOPPLER / COLOR) W OR WO CONTRAST. Patient Status: [facility]: Adequate visualization History/Tech Notes: Indication: shortness [...] 1.35 m/s E/A ratio: 0.97 m/s Volume dijpclfou075.99 LV length: 8.51 cm ml Volume nlqfnqur41.96 ml LVOT diameter: 1.79 cm Normal sized [...] Valve TR velocity: 2.51 m/s TR gradient: 25.29434 mmHg Estimated RAP: 3 mmHg RVSP: 28.12 [...] in 5 days 12/05/2024 5:01 AM EDT [facility] Blood ENTIRE RIGHT UPPER ARM / Unknown Venipuncture / Unknown 11/30/2024 3:42 AM EDT 11/30/2024 4:09 AM EDT us Huey Hurtado MD MICROBIOLOGY - GENERAL ORDERABLE S Final Result Performing Organization Address [facility] Co de Phone Number [facility] [address] [phone] * Lactic Acid with reflex (11/30/2024 3:40 AM EDT) Lactic Acid Level (mmol/L) 0.9 0.5 - 2.2 mmol/L 11/30/2024 5:37 AM EDT [facility] Blood Venipuncture / Unknown 11/30/2024 3:40 AM EDT 11/30/2024 4:10 AM EDT us Huey Hurtado MD LAB BLOOD ORDERABLES Final Resul t Performing Organization Address [facility]/ZIP Co de Phone Number [facility] [address] [phone] * Procalcitonin (11/30/2024 3:40 AM EDT) Procalcitonin 0.26 See Comment ng/mL 11/30/2024 5:07 AM EDT [facility] Comment: Sepsis comment <0.5 [...] ORDERABLES Final Resul t Performing Organization Address [facility] Co de Phone Number [facility] [address] [phone] * (ABNORMAL) Iron and TIBC (11/30/2024 3:40 AM EDT) Iron 63 50 - 170 ug/dL 11/30/2024 6:13 PM EDT [facility] TIBC 183(L) 250 - 435 ug/dL 11/30/2024 6:13 PM EDT [facility] % Saturation 34 % 11/30/2024 6:13 PM EDT [facility] UIBC 120 11/30/2024 6:13 PM EDT [facility] Blood Venipuncture / Unknown 11/30/2024 3:40 AM EDT 11/30/2024 4:09 AM EDT us Rommel Batista MD LAB BLOOD ORDERABLES Final Res ult Performing Organization Address [facility]/ZIP Co de Phone Number [facility] [address] [phone] * aPTT (11/30/2024 3:40 AM EDT) aPTT 27.7 22.0 - 32.0 seconds 11/30/2024 4:32 AM EDT [facility] Blood Venipuncture / Unknown 11/30/2024 3:40 AM EDT 11/30/2024 4:10 AM EDT us Huey Hurtado MD LAB BLOOD ORDERABLES Final Resul t Performing Organization Address [facility] Phone Number [facility] [address] [phone] * (ABNORMAL) Prothrombin time/INR (11/30/2024 3:40 AM EDT) Protime 12.9(H) 9.0 - 12.0 seconds 11/30/2024 4:32 AM EDT [facility] INR 1.17(H) 0.80 - 1.10 11/30/2024 4:32 AM EDT [facility] Comment: Recommended therapeutic ranges [...] ORDERABLES Final Resul t Performing Organization Address [facility] Phone Number [facility] [address] [phone] * (ABNORMAL) Uric acid (11/30/2024 3:40 AM EDT) Uric Acid 11.2(H) 2.5 - 6.2 mg/dL 11/30/2024 12:18 PM EDT [facility] Blood Venipuncture / Unknown 11/30/2024 3:40 AM EDT 11/30/2024 4:09 AM EDT us Hill Boo MD LAB BLOOD ORDERABLES Final Resu lt Performing Organization Address [facility]/ZIP Co de Phone Number [facility] [address] [phone] * (ABNORMAL) Lactate dehydrogenase (LDH) (11/30/2024 3:40 AM EDT) LDH 261(H) 125 - 220 U/L 11/30/2024 12:18 PM EDT [facility] Blood Venipuncture / Unknown 11/30/2024 3:40 AM EDT 11/30/2024 4:09 AM EDT us Hill Boo MD LAB BLOOD ORDERABLES Final Resu lt Performing Organization Address [facility]/ZIP Co de Phone Number [facility] [address] [phone] * Iron, serum (11/30/2024 3:40 AM EDT) Iron 64 50 - 170 ug/dL 11/30/2024 8:10 AM EDT [facility] Blood Venipuncture / Unknown 11/30/2024 3:40 AM EDT 11/30/2024 4:09 AM EDT us Timothy Bai MD LAB BLOOD ORDERABLES Final Result Performing Organization Address [facility]/ZIP Co de Phone Number [facility] 1 [place] [address], [facility] [phone] * Folate, Serum (11/30/2024 3:40 AM EDT) Folate 7.0 7.0 - 31.4 ng/mL 11/30/2024 6:08 PM EDT [facility] Blood Venipuncture / Unknown 11/30/2024 3:40 AM EDT 11/30/2024 4:09 AM EDT us Rommel Batista MD LAB BLOOD ORDERABLES Final Res ult [facility] [address] [phone] * Vitamin B12 (11/30/2024 3:40 AM EDT) Vitamin B12 678 213 - 816 pg/mL 11/30/2024 8:10 AM EDT [facility] Blood Venipuncture / Unknown 11/30/2024 3:40 AM EDT 11/30/2024 4:09 AM EDT us Timothy Bai MD LAB BLOOD ORDERABLES Final Result [facility] [address] [phone] * EKG-SCANNED (11/30/2024) Only the most recent of3 resultswithin the time period is included. Narrative 11/30/2024 Ordered by an unspecified provider. us Default Scanning Provider SCAN ORDERS Final Result from Last 3 Months Insurance [facility] Advance Directives For more information, please contact: [phone] * Full Code (Latest Code Status on File) Date Activated Date Inactivated Comments 11/30/2024 2:06 AM 12/14/2024 6:30 PM Care Teams Heel Nail Rasper Relationship Specialty Start Date End Date Provider, Not In System [place] PCP - General 12/14/24
--- OUTSIDE RECORDS SUMMARY | 2025-01-10 10:37 | XMS_ITS | Encounter Summary ---
Author Organization [facility] In iatives Address [address] [place] [address] Care Team Providers Care Drafting Clerk Name Role Phone [facility] Francesca, Find-A-Doc Primary Care Provider Encounter Details [...] Do you speak a language other than [facility] at [facility]? No 11/30/2024 Do you want help with [...] Description 01/27/2025 10:45 AM EDT Office Visit [facility] Electrophysiology [address] [place] [address] Quincy Foss MD [address] [facility] [address] [place] [address] documented as of this encounter Visit Diagnoses Not on filedocumented in this encounter Care Teams Drafting Clerk Relationship Specialty Start Date End Date [facility] Connection, Find-A-Doc [facility] [place] [address] PCP - General 11/30/24 12/13/24 documented as of this encounter
--- OUTSIDE RECORDS SUMMARY | 2025-01-10 10:37 | XMS_ITS ---
Author Organization Healthcare Address [address] [place] [address] Care Team Providers Care Environmental Lawyer Name Role Phone Larry Bedolla MD Primary Care Provider + [phone] Sary Brannon GAME DESIGNER Unavailable [phone] Transplant Episode Liver Candidate [facility] ([place], [place]) - JOSÉ LUIS Referred on 01/07/2025 Marked as Active on 01/07/2025 Liver CoordinatorJessica Simms Fax: N/A Email: N/A Care Team Name Role Phone Fax Email Jessica Simms Liver Coordinator [phone] N/A N/A Sary Brannon APRN Referring Physician [phone] N/A Gem Clark Senior Developer [phone] N/A N/A Edil Kiran MD Surgeon [phone] N/A Events Pre-Transplant Referred: 01/07/2025
--- OUTSIDE RECORDS SUMMARY | 2025-01-10 10:37 | XMS_ITS | Encounter Summary ---
Author Organization [facility] Address [address] [place] [address] Care Team Providers Care Unit Controller Name Role Phone Larry Bedolla MD Primary Care Provider + [phone] Sary Brannon EDUCATIONAL PSYCHOLOGY PROFESSOR Unavailable [phone] Reason for Referral * Transplant (Routine) - Pending Review Specialty Diagnoses / Procedures Referred By Contmazin t Referred To Contact Transplant Diagnoses End-stage liver disease (CMS/HCC) Sary Brannon APRN [address] [facility] [address] [place] [address] Phone: tel: fax: [facility] [address] [address] Phone: tel: fax: Referral ID Status Reason Start Date Expiration Date Visits Requested Visits Authorized [id number] Pending Review Specialty Services Required 01/07/2025 07/09/2026 999 999 Reason for Visit * Reason Comments Referral - Liver Txp Encounter Details Date Type Department Care Team (Late st Contact Info) Description 01/07/2025 Telephone [facility] [address] [address] Kasey Dye [place] [phone] Referral - Liver Txp Social History Tobacco Use Types Packs/Day Years [...] encounter Miscellaneous Notes * Telephone Encounter - Kasey Dye - 01/07/2025 1:35 PM EDT New pre liver referral from Sary Brannon, scheduling pending financial clearance. documented in this encounter Plan of Treatment Scheduled Referrals Name Type Priority Associated Diagnoses Order Schedule Ambulatory referral to Solid Organ Transplant Team Outpatient Referral Routine End-stage liver disease (CMS/HCC) Ordered: 01/07/2025 documented as of this encounter Procedures Procedure Name Priority Date/Time Associated Diagnosis Comments CREATININE, PLASMA Routine 01/03/2025 SODIUM, PLASMA Routine 01/03/2025 ALBUMIN, PLASMA Routine 01/03/2025 CREATININE, PLASMA Routine 12/14/2024 SODIUM, PLASMA Routine 12/14/2024 TOTAL BILIRUBIN, PLASMA Routine 12/14/2024 ALBUMIN, PLASMA Routine 12/14/2024 PROTHROMBIN TIME(PT) / INR Routine 11/30/2024 documented in this encounter Results * Sodium, Plasma (01/03/2025) External Sodium 144 mmol/L Blood Venous blood specimen / Unknown 01/03/2025 Result [facility] Provider LAB BLOOD ORDERABLES Afsaneh l Result * Creatinine, Plasma (01/03/2025) External Creatinine Blood 3.00 mg/dL Blood Venous blood specimen / Unknown 01/03/2025 Result [facility] Provider LAB BLOOD ORDERABLES Afsaneh l Result * Albumin, Plasma (01/03/2025) External Albumin 3.6 g/dL Blood Venous blood specimen / Unknown 01/03/2025 Result [facility] LAB BLOOD ORDERABLES Afsaneh l Result * Albumin, Plasma (12/14/2024) External Albumin 3.2 g/dL Blood Venous blood specimen / Unknown 12/14/2024 Result [facility] LAB BLOOD ORDERABLES Afsaneh l Result * Total Bilirubin, Plasma (12/14/2024) External Bilirubin Total 0.9 mg/dL Blood Venous blood specimen / Unknown 12/14/2024 Result [facility] LAB BLOOD ORDERABLES Afsaneh l Result * Creatinine, Plasma (12/14/2024) External Creatinine Blood 2.22 mg/dL Blood Venous blood specimen / Unknown 12/14/2024 Result [facility] LAB BLOOD ORDERABLES Afsaneh l Result * Sodium, Plasma (12/14/2024) External Sodium 145 mmol/L Blood Venous blood specimen / Unknown 12/14/2024 Result [facility] LAB BLOOD ORDERABLES Afsaneh l Result * Prothrombin Time/INR (11/30/2024) External Prothrombin Time (PT) 12.9 External INR - Internormal Ratio 1.17 Blood Venous blood specimen / Unknown 11/30/2024 Historical Provider LAB BLOOD ORDERABLES Afsaneh l Result documented in this encounter Visit Diagnoses Diagnosis End-stage liver disease (CMS/HCC)- Primary Other sequelae of chronic liver disease documented in this encounter Additional Health Concerns Assessment Noted Time A fall risk assessment has been complete d for the patient 01/02/2022 1:17 PM EDT A Body Mass Index follow-up plan has been documented for the patient 11/13/2022 11:41 AM EDT documented as of this encounter Care Teams Unit Controller Relationship Specialty Start Date End Date Larry Bedolla MD [address] [place] [address] [place] [address] PCP - General 12/08/20 Sary Brannon APRN [address] [place] [address] [place] [address] Referring Physician Gastroenterology 01/07/25 documented as of this encounter
--- OUTSIDE RECORDS SUMMARY | 2025-01-10 10:37 | XMS_ITS | Clinical Summary ---
Author Organization [facility] [place] [address] Care Team Providers Care Food Safety Director Name Role Phone Unavailable Primary Care Provider [...]
--- OUTSIDE RECORDS SUMMARY | 2025-01-10 10:37 | XMS_ITS | Encounter Summary ---
Author Organization Healthcare Address [address] [place] [address] Care Team Providers Care Body Joiner Name Role Phone Larry Bedolla MD Primary Care Provider + [phone] Sary Brannon HOOP DRIVING MACHINE OPERATOR HELPER Unavailable [phone] Encounter Details Date Type Department Care Team (Late st Contact Info) Description 01/03/2025 Community [facility] [address] [place] [address] Sary Brannon, HOOP DRIVING MACHINE OPERATOR HELPER [address] [place] [address] [place] [address] Social History Tobacco Use Types Packs/Day Years [...] Diagnoses Not on filedocumented in this encounter Additional Health Concerns Assessment Noted Time A fall risk assessment has been complete d for the patient 01/02/2022 1:17 PM EDT A Body Mass Index follow-up plan has been documented for the patient 11/13/2022 11:41 AM EDT documented as of this encounter Care Teams Body Joiner Relationship Specialty Start Date End Date Larry Bedolla MD [address] [facility] [place] [address] PCP - General 12/08/20 Sary Brannon APRN [address] [place] [address] [place] [address] Referring Physician Gastroenterology 01/07/25 documented as of this encounter
--- OUTSIDE RECORDS SUMMARY | 2025-01-10 10:37 | XMS_ITS | Clinical Summary ---
Author Organization Healthcare Address [address] [place] [address] Care Team Providers Care Client Sales And Service Officer Name Role Phone Larry Bedolla MD Primary Care Provider + [phone] Sary Brannon DIET TECH Unavailable [phone] Allergies No known active allergies Medications bisoprolol [...] 3 INJECTIONS DAILY 1 Active HYDROcodone-acetam inophen (Montague) 10-325 MG tablet 3 Active spironolactone (Aldactone) 25 MG tablet Take 25 mg by mouth 1 (one) time each day. 3 Active furosemide (Lasix) 40 MG tablet Take by mouth 2 (two) times a day. 3 Active Insulin Lispro (HUMALOG IJ) Inject as directed. 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, [...] Obesity 10/22/2014 CKD (chronic kidney disease) 10/10/2014 Encounters Date Type Department Care Team Description 01/07/2025 Telephone [facility] [address] [address] Kasey Dye Referral - Liver Txp 01/03/2025 Community Orders Community Practice [address] [place] [address] Sary Brannon APRN from Last 3 Months Immunizations Immunization Administration Dates Next Due Hep [...] Health Maintenance Due Date Last Done Comments [facility]-Depression Screening 1960 [facility]-Infant/Child/Adol SDOH Screenings 1960 [facility]- SDOH Screenings 1980 [facility]-Adult SDOH Screenings 1980 [facility]-Pap Smear 1983 [facility]-Cervical Cancer Screening 1992 [facility]-HPV/Cotest 1992 CT Colonography 2007 Colonoscopy 2007 FIT-DNA 2007 FIT 2007 FOBT 2007 Sigmoidoscopy 2007 [facility]-Colorectal Cancer Screening 2007 [id number] Vaccine ( season) 2024 05/13/2021, 04/15/2021, 11/08/2020 [facility]-Influenza Vaccine (Season Ended) 2025 05/15/2020, 04/25/2019, 05/01/2018, Additional history exists [facility]-Pneumococcal Vaccine: 50+ Years (3 of 3 - PCV20 or PCV21) 05/15/2025 05/15/2020, 07/09/2016 [facility]-DTaP,Tdap,and Td Vaccines (2 - Td or Tdap) 02/25/2031 02/25/2021 [facility]-RSV Vaccine: 60+ Years or (1 - 1-dose 75+ series) 2037 [facility]-Diabetes: Hemoglobin A1C Discontinued 01/24/2016, 01/05/2015 [facility]-Zoster Vaccines Completed 05/31/2021, 08/15/2020, 05/31/2020 [facility]-Hepatitis A Vaccines Aged Out 01/02/2022, 10/27 No longer eligible based on patient's age to complete this topic HPV Vaccines Aged Out No longer eligi [...] Procedure Name Priority Date/Time Associated Diagnosis Comments SODIUM, PLASMA Routine 01/03/2025 CREATININE, PLASMA Routine 01/03/2025 ALBUMIN, PLASMA Routine 01/03/2025 ALBUMIN, PLASMA Routine 12/14/2024 TOTAL BILIRUBIN, PLASMA Routine 12/14/2024 CREATININE, PLASMA Routine 12/14/2024 SODIUM, PLASMA Routine 12/14/2024 PROTHROMBIN TIME(PT) / INR Routine 11/30/2024 HEMOGLOBIN A1C Routine 01/24/2016 1:47 PM EDT from Last 3 Months or Most Recently Relevant to Health Maintenance Results * Creatinine, Plasma (01/03/2025) Only the most recent of2 resultswithin the time period is included. External Creatinine Blood 3.00 mg/dL Blood Venous blood specimen / Unknown 01/03/2025 Historical Provider LAB BLOOD ORDERABLES Afsaneh l Result * Sodium, Plasma (01/03/2025) Only the most recent of2 resultswithin the time period is included. External Sodium 144 mmol/L Blood Venous blood specimen / Unknown 01/03/2025 Historical Provider MD LAB BLOOD ORDERABLES Afsaneh l Result * Albumin, Plasma (01/03/2025) Only the most recent of2 resultswithin the time period is included. External Albumin 3.6 g/dL Blood Venous blood specimen / Unknown 01/03/2025 Result [facility] Provider MD LAB BLOOD ORDERABLES Afsaneh l Result * Total Bilirubin, Plasma (12/14/2024) External Bilirubin Total 0.9 mg/dL Blood Venous blood specimen / Unknown 12/14/2024 Result [facility] Provider MD LAB BLOOD ORDERABLES Afsaneh l Result * Prothrombin Time/INR (11/30/2024) External Prothrombin Time (PT) 12.9 External INR - Internormal Ratio 1.17 Blood Venous blood specimen / Unknown 11/30/2024 Result [facility] Provider MD LAB BLOOD ORDERABLES Afsaneh l Result * (ABNORMAL) Hemoglobin A1c (01/24/2016 1:47 PM [...] 1:47 PM EDT 01/24/2016 6:17 PM EDT Result [facility] Sherri Adkins APRN LAB BLOOD ORDERABLES Final Result [employer] from Last 3 Months or Most Recently Relevant to Health Maintenance Insurance [employer] Care Teams Client Sales And Service Officer Relationship Specialty Start Date End Date Larry Bedolla MD [address] [place] [address] PCP - General 5/14/21 Sary Brannon APRN [address] [place] [address] [place] [address] Referring Physician Gastroenterology 01/07/25
--- OUTSIDE RECORDS SUMMARY | 2025-01-10 10:38 | XMS_ITS | Encounter Summary ---
Author Organization Healthcare Address [address] [place] [address] Care Team Providers Care Payroll Director Name Role Phone Larry Bedolla MD Primary Care Provider + [phone] Sary Brannon CUTLET MAKER PORK Unavailable [phone] Reason for Visit * Reason Comments Med Refill Encounter Details Date Type Department Care Team (Late st Contact Info) Description 04/12/2021 Refill [place] Endocrinology [address] [place] [address] Lina Lowe, CUTLET MAKER PORK [address] [facility] [address] [place] [address] Social History Tobacco Use Types [...] on filedocumented in this encounter Care Teams Payroll Director Relationship Specialty Start Date End Date Larry Bedolla MD [address] [place] [address] PCP - General 12/08/20 Sary Brannon APRN [address] [place] [address] [place] [address] Referring Physician Gastroenterology 01/07/25 documented as of this encounter
--- OUTSIDE RECORDS SUMMARY | 2025-01-10 10:38 | XMS_ITS | Encounter Summary ---
Author Organization Healthcare Address [address] [place] [address] Care Team Providers Care Salesforce Consultant Name Role Phone Larry Bedolla MD Primary Care Provider + [phone] Sary Brannon INTERPRETER TRANSLATOR Unavailable [phone] Reason for Referral * Consultation (Routine) - Closed Specialty Diagnoses / Procedures Referred By Mayela may Referred To Contact Hepatology Diagnoses Bilious vomiting with nausea Anticentromere antibodies present Thrombopenia (CMS/HCC) Stage 3 hepatic fibrosis Raul Kincaid PA [address] [place] [address] Phone: tel: fax: Referral ID Status Reason Start Date Expiration Date V isits Requested Visits Authorized [id number] Closed Specialty Services Required 09/27/2021 03/29/2023 1 1 Encounter Details Date Type Department Care Team (Late st Contact Info) Description 09/27/2021 Community [facility] Community Practice [address] [place] [address] Raul Kincaid PA [address] [place] [address] Bilious vomiting with nausea (Primary [...] fibrosis documented in this encounter Care Teams Salesforce Consultant Relationship Specialty Start Date End Date Larry Bedolla MD [address] [place] [address] [place] [address] PCP - General 12/08/20 Sary Brannon APRN [address] [place] [address] [address] [place] [address] Referring Physician Gastroenterology 01/07/25 documented as of this encounter
--- OUTSIDE RECORDS SUMMARY | 2025-01-10 10:38 | XMS_ITS | Encounter Summary ---
Author Organization Healthcare Address [address] [place] [address] Care Team Providers Care Grocery Clerk Stocking Name Role Phone Larry Bedolla MD Primary Care Provider + [phone] Clovis Sary Braxton SAW TAILER Unavailable [phone] Encounter Details Date Type Department Care Team (Late st Contact Info) Description 01/21/2022 Community [facility] Community Practice [address] [place] [address] Larry Bedolla MD [address] [phone] Central stenosis of spinal canal (Primary Dx) [...] documented as of this encounter Care Teams Grocery Clerk Stocking Relationship Specialty Start Date End Date Larry Bedolla MD [address] [facility] [place] [address] PCP - General 12/08/20 Sary Brannon APRN [address] [facility] [address] [place] [address] Referring Physician Gastroenterology 01/07/25 documented as of this encounter
== END 2025-01-10 23:59 | disposition home or self-care (01) ==
LOC: RT 10:28
PROVIDERS: PCP Family Medicine; Visit Provider Physician Assistant
DX: I49.1 Atrial premature depolarization (principal); I47.19 Other supraventricular tachycardia; I49.3 Ventricular premature depolarization; I47.29 Other ventricular tachycardia; I48.0 Paroxysmal atrial fibrillation; I25.10 Atherosclerotic heart disease of native coronary artery without angina pectoris
CPT/HCPCS: 93270

== ENCOUNTER 2025-01-11 13:47 | Outpatient (CLI) | payer MEDICARE, MEDICAID, SELFPAY ==
--- OUTSIDE RECORDS SUMMARY | 2018-11-16 06:00 | XMS_ITS | Continuity of Care Document ---
Author Organization [facility] Address [address] [place] [phone] Phone Care Team Providers Care Vault Worker Name Role Phone Dane Pink MD Unavailable [...] Provider Providers Copied on Encounter Connor Cameron [facility], [address] [place] [address], [id number], tel:[phone] JENNIFER Torres [place] No Information 9 Apryl Vela. [address] [place] [address], [id number] , . tel:[phone] OFFICE/OUTPA TIENT VISIT, EST Connor Cameron [facility], [address] [place] [address], [address] [place] [address], tel:[phone] [place] inflammation ck OS (chief complaint) Iritis, recurrent, left eye 9 Apryl Vela. [address] [place] [address], [address] [place] [address] , . tel:[phone] Referring Provider: Self Referred Jose C Connor Cameron [facility], [address] [place] [address], [id number], tel:[phone] JENNIFER Torres [place] Anterior Seg ck (chief complaint) Iritis, recurrent, left eye 9 Apryl Vela. [address] [place] [address], [id number] , . tel:[phone] Referring Provider: Maria Teresa Santos, [employer] [address] [place] [address], [facility]. tel:[phone] Family History Family Member Type Diagnosis Age At Onset Problem (finding) Family history of Diabe reynold mellitus Problem (finding) Family history of Cardi ovascular disease Problem (finding) Family history of glauc haroon Payers Payer name Insurance type Covered alliance party ID Authoriza tion(s) Medicare [facility] [id number] Social History Type Description Quantity Date Captured [...]
--- OUTSIDE RECORDS SUMMARY | 2024-11-30 01:43 | XMS_ITS | Encounter Summary ---
Author Organization [facility] [employer] Address [address] [place] [address] Care Team Providers Care [employer] Roofer Name Role Phone [facility] Connection, Find-A-Doc Primary Care Provider Provider, Not In System Primary Care Provider Un available Reason for Visit * Auth/Cert (Routine) Specialty Diagnoses / Procedures Referred By Mayela may Referred To Contact Diagnoses Anasarca ACUTE RENAL FAILURE [address] Medical Telemetry Unit [address] [place] [phone] Phone: tel: fax: [address] [place] [address] Phone: tel: fax: Referral ID Status Reason Start Date Expiration Date Visits Re quested Visits Authorized [id number] 1 1 Encounter Details Date Type Department Care Team (Late st Contact Info) Description 11/30/2024 1:43 AM EDT - 12/14/2024 5:30 PM EDT Hospital Encounter [address] Telemetry [address] [place] [address] Albert Garcia MD [address] [place] [address] Timothy Bai MD [address] [place], [place] [id number] Mary Carmen Mcfadden MD [address] [facility] [address] [place], [place] [id number] Venkatesh Stephen MD [address] [facility] [address] [place], [place] [id number] David Coffman PA-C [address] [place] [address] Huey Hurtado MD [address] [facility] [address] [place], [place] [id number] Keren (Primary Dx); Anasarca Discharge Disposition: Home or Self Care Social History Tobacco Use Types Packs/Day Years Used Date Smoking Tobacco: Never Passive Smoke Exposure: Never Smokeless Tobacco: Never Tobacco Cessation:Counseling Given: Not Answered Alcohol Use Standard Drinks/Week Comments Never 0 (1 standard drink = 0.6 oz pur e alcohol) Utilities Answer Date Recorded In the past 12 months, has t he electric, gas, oil, or water company threatened to shut off services in your home? No 11/30/2024 Interpersonal Safety Answer Date Record ed How often does anyone, june diallo family and friends, physically hurt you? Never 11/30/2024 How often does anyone, june diallo family and friends, insult or talk down to you? Never 11/30/2024 How often does anyone, june diallo family and friends, threaten you with harm? Never 11/30/2024 How often does anyone, virginiasean diallo family and friends, scream or curse at you? Never 11/30/2024 Housing Stability Answer Date Recorded What is your living situation today? I have a [address] [place] place to live 11/30/[address] you li ve. Do you have problems with any of the following? None of the above 11/30/2024 Food Insecurity Answer Date Recorded Within the past 12 months, y ou worried that your food would run out before you got money to buy more. Never true 11/30/2024 Within the past 12 months, t he food you bought just didn't last and you didn't have money to get more. Never true 11/30/2024 Transportation Needs Answer Date Record ed In the past 12 months, has l ack of reliable transportation kept you from medical appointments, meetings, work or from getting things needed for daily living? Yes 11/30/2024 Financial Resource Strain Answer Date R ecorded How hard is it for you to pa y for the very basics like food, housing, medical care, and heating? Would you say it is: Not hard at all 11/30/2024 Employment Answer Date Recorded Do you want help finding or keeping work or a job? I do not need or want help 11/30/2024 Family and Community Support Answer Brown e Recorded If for any reason you need h elp with day-to-day activities such as bathing, preparing meals, shopping, managing finances, etc., do you get the help you need? I don't need any help 11/30/2024 Feeling Lonely or Isolated 0 11/30 Educational Attainment Answer Date Giorgi rded Do you speak a language other than [place]onian at [facility]? No 11/30/2024 Do you want help with school or training? For example, starting or completing job training or getting a high school diploma, GED or equivalent. No 11/30/2024 Physical Activity Answer Date Recorded Number of minutes of exercise per week 0 11/30/2024 Alcohol Use Answer Date Recorded 5 or More Drinks Per Day Past 12 Months 0 11/30/2024 Depression Answer Date Recorded Calculation of above two rows 0 Stress Answer Date Recorded Stress means a situation in which a person feels tense, restless, nervous, or anxious, or is unable to sleep at night because his or her mind is troubled all the time. Do you feel this kind of stress these days? A little bit 11/30/2024 Disabilities Answer Date Recorded Because of a physical, menta l, or emotional condition, do you have serious difficulty concentrating, remembering, or making decisions? (5 years or older) Yes 11/30/2024 Because of a physical, menta l, or emotional condition, do you have difficulty doing errands alone such as visiting a doctor's office or shopping? (15 years or older) No 11/30/2024 Substance Use Answer Date Recorded How many times in the past y ear have you used prescription drugs for non-medical reasons? Never 11/30/2024 How many times in the past year have you used il legal drugs? Never 11/30/2024 Comments No Sex and Gender Information Value Date Recorded Sex Assigned at Not on file Legal Sex Female 9:06 PM CDT Gender Identity Not on file Sexual Orientation Not on file documented as of this encounter Last Filed Vital Signs Vital Sign Reading Time Taken Comments Blood Pressure 141/72 12/14/2024 3:45 PM EDT Pulse 85 12/14/2024 3:45 PM EDT Temperature 36.7 C (98.1 F) 12/14/2024 3:45 PM EDT Respiratory Rate 18 12/14/2024 3:45 PM EDT Oxygen Saturation 92% 12/14/2024 3:45 PM EDT Inhaled Oxygen Concentration 35% 12/13/2024 1 1:55 PM EDT Weight 83.9 kg (185 lb) 12/14/2024 6:00 AM EDT Height 167.6 cm (5' 6 ) 12/01/2024 8:09 AM EDT Body Mass Index 29.86 12/01/2024 8:09 AM EDT documented in this encounter Discharge Summaries * David Coffman PA-C - 12/14/2024 12:42 PM EDT [facility] Discharge Summary Patient Name: Mary Coronel : 1960 Date of Admission: 11/30/2024 Date of Discharge: 12/14/2024 Primary Care Physician: Not In System Provider 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 Pancytopenia. Acute hypoxemic and hypercapnic respiratory failure. Acute diastolic heart failure present on admission. Acute kidney injury. Diabetes mellitus. Urine retention. Likely obstructive sleep apnea. Reason for Hospitalization: Anasarca [R60.1] Hospital Course Mary Coronel is a 64 y.o. female presenting with past medical history of NAFLD October 2024, hypertension, hyperlipidemia, diabetes, CKD, CAD, arthritis. Patient presented to [facility] with swollen abdomen, abdominal discomfort and bilateral lower extremity pitting edema.Patient's BUN/creatinine elevated, and patient subsequently transferred to [facility] for hepatorenal syndrome evaluation. Admits to 4 weeks of progressive SOB, FUNK, orthopnea, lower extremity swelling, abdominal swelling, ataxia issues. States beforementioned symptoms have gotten worse over past week. Also states she has gained 16 pounds over past week. Admitts to chronic RUQ, diffuse abdominal discomfort which is worsened over past week. Reports decreased urine output x 7 days. Patient informed by outside emergency room that she may require temporary dialysis during this hospitalization. Reports no current GI follow-up for cirrhosis. Also admits to dark tarry stools recently. Patient also suffered intermittent altered mental status of the last few days. Patient's niece forced patient to visit [facility] emergency room today she really loves me. States that she lives alonewithout home support at baseline. States she takes oral Lasix at home at baseline. States over pastfew days she has doubled home Lasix dosage without increase in urine output. Denies history of kidney, heart, lung disease. Patient admitted by the hospitalist service. Her anasarca was felt to be secondary to cirrhosis evident on ultrasound. She was aggressively diuresed and occasionally given albumin. Did not require renal replacement therapy. Renal function stabilized. She underwent paracentesis x 2 while here. She was started on rifaximin and lactulose. She did have elevated ammonia level on presentation which resolved with the lactulose. Her symptoms of abdominal fullness and swelling resolved. She was weaned to room air. She was using BiPAP while sleeping and napping intermittently. Recommending outpatient split-night polysomnography. Will also need follow-up with nephrology and hepatology. Patient was noted to have episodes of paroxysmal atrial fibrillation and nonsustained ventricular tachycardia and atrial tachycardia. EP cardiology consulted. Patient was started on amiodarone. She had mostly sinus rhythm after that. EP is recommending continuing the amiodarone for now. Will need follow-up with cardiology. For pancytopenia and anemia did receive 2 units of packed red blood cells. Hematology/oncology was consulted. Underwent a bone marrow biopsy which was unremarkable. [place] that she had anemia of chronic disease and hypersplenism and liver disease explained her other cell line depression. Recommend repeating CBC and iron studies few weeks after discharge. While here she experienced urinary retention and a Blas catheter was placed briefly. She was placed on Flomax and Blas catheter was removed and she was able to have spontaneous urine output. With her illness she became acutely debilitated. She was active with physical and Occupational Therapy to the point that she improved to no longer requiring rehabilitation. It was felt she was medically stable for discharge home. Patient and sister were in agreement with discharge. All questions answered. Discharged home in stable condition with outpatient follow-ups to be arranged. PCP follow up list: Hospital follow up visit: Will need appointment with hepatology. Will need cardiology follow-up. Started on amiodarone. Will need follow-up for pancytopenia. Recommend split-night polysomnography to document the presence of sleep apnea and establish treatment. Will need follow-up with nephrology. Metformin and lisinopril held secondary to acute kidney injury. Will need follow-up on her sugars. No oral anticoagulation started due to pancytopenia. Day of Discharge Vital Signs: Temp: [97.9 ??F (36.6 ??C)-99.1 ??F (37.3 ??C)] 98.1 ??F (36.7 ??C) Pulse: [84-88] 86 Resp: [18-22] 18 BP: (125-153)/(51-78) 125/65 FiO2 (%): [35 %] 35 % SpO2 for the past 72 hrs (Last 3 readings): SpO2 12/14/24 1200 92 % 12/14/24 0930 93 % 12/14/24 0445 90 % Body mass index is 29.86 kg/m??. Focused Physical Exam: Patient seen and evaluated on day of discharge Awake, alert, no acute distress. Oriented x 3. Head atraumatic and normocephalic. Neck is supple without lymphadenopathy. Heart regular rate and rhythm without rub murmur or gallop. No JVD. No HJR. Lungs are clear to auscultation bilaterally. No rhonchi, rales, wheezes. No retractions. No accessory muscle use. Abdomen soft, nontender, nondistended. Bowel sounds positive x 4. No rebound or guarding. Extremities no edema. No shakes, tremors, seizures. Imaging and Lab Results Procedures: Paracentesis 12/10--7.5 L removed. Paracentesis 11/30--[address]-guided bone marrow biopsy 12/02/2021. Studies: Micro: Discharge Details Allergies:No Known Allergies Medications on Discharge: Your medication list START taking these medications Instructions Comments Quantity Refills amiodarone 200 MG tablet Commonly known as: PACERONE Take 1 tablet (200 mg total) by mouth daily for 30 days. 30 tablet 0 bumetanide 1 MG tablet Commonly known as: BUMEX Take 1 tablet (1 mg total) by mouth 2 (two) times daily. 0 ergocalciferol 1,250 mcg (50,000 unit) capsule Commonly known as: DRISDOL Take 1 capsule (50,000 Units total) by mouth every 7 days for 30 days. 4 capsule 0 gabapentin 100 MG capsule Commonly known as: NEURONTIN Replaces: gabapentin 800 MG tablet Take 1 capsule (100 mg total) by mouth 3 (three) times daily for 3 days. Max Daily Amount: 300 mg 0 lactulose 10 gram/15 mL solution Commonly known as: CHRONULAC Take 15 mLs (10 g total) by mouth 2 (two) times daily. 900 mL 0 metOLazone 2.5 MG tablet Commonly known as: ZAROXOLYN Start taking on: December 15, 2024 Take 1 tablet (2.5 mg total) by mouth daily. 30 tablet 0 pantoprazole 40 MG tablet Commonly known as: PROTONIX Take 1 tablet (40 mg total) by mouth 2 (two) times daily for 30 days. 60 tablet 0 rifAXIMin 550 mg Commonly known as: XIFAXAN Take 1 tablet (550 mg total) by mouth 2 (two) times daily. 60 tablet 0 spironolactone 25 MG tablet Commonly known as: ALDACTONE Take 0.5 tablets (12.5 mg total) by mouth daily. 0 tamsulosin 0.4 mg Cap 24 hr capsule Commonly known as: FLOMAX Take 1 capsule (0.4 mg total) by mouth every evening for 30 days. 30 capsule 0 CONTINUE taking these medications Instructions Comments Quantity Refills albuterol 90 mcg/actuation inhaler Inhale 1 puff by mouth every 6 (six) hours as needed for wheezing. 0 ammonium lactate 12 % cream Commonly known as: AMLACTIN Apply 1 g topically as needed for dry skin. 0 atorvastatin 20 MG tablet Commonly known as: LIPITOR Take 1 tablet (20 mg total) by mouth nightly. 0 HYDROcodone-acetaminophen 10-325 mg per tablet Commonly known as: NORCO Notes to patient: Limit Tylenol (acetaminophen) from ALL sources to 2000 mg/day Take 1 tablet by mouth every 6 (six) hours as needed for pain. Max Daily Amount: 4 tablets 0 hydrOXYzine pamoate 50 MG capsule Commonly known as: VISTARIL Take 1 capsule (50 mg total) by mouth every night as needed for itching (sleep) Look-alike/Sound-alike medication. 0 insulin aspart U-100 100 unit/mL (3 mL) Inpn Commonly known as: NovoLOG Inject under the skin 4 (four) times daily before meals and nightly. 0 STOP taking these medications aspirin 81 MG chewable tablet bisoprolol 10 MG tablet Commonly known as: ZEBETA cholecalciferol 125 mcg (5,000 unit) tablet Commonly known as: VITAMIN D3 clopidogreL 75 mg tablet Commonly known as: PLAVIX colestipoL 1 gram tablet Commonly known as: COLESTID dicyclomine 10 MG capsule Commonly known as: BENTYL furosemide 40 MG tablet Commonly known as: LASIX gabapentin 800 MG tablet Commonly known as: NEURONTIN Replaced by: gabapentin 100 MG capsule lisinopriL 10 MG tablet Commonly known as: ZESTRIL metFORMIN 1000 MG tablet Commonly known as: GLUCOPHAGE tirzepatide 7.5 mg/0.5 mL Pnij triamcinolone 0.1 % topical cream Commonly known as: KENALOG Where to Get Your Medications These medications were sent to [facility] [address] [place] [address] [address] amiodarone 200 MG tablet ergocalciferol 1,250 mcg (50,000 unit) capsule lactulose 10 gram/15 mL solution pantoprazole 40 MG tablet rifAXIMin 550 mg These medications were sent to [facility] [address] [address] metOLazone 2.5 MG tablet tamsulosin 0.4 mg Cap 24 hr capsule Information about where to get these medications is not yet available Ask your nurse or doctor about these medications bumetanide 1 MG tablet gabapentin 100 MG capsule spironolactone 25 MG tablet Discharge condition: Improved and stable Discharge Disposition: Home Discharge Instructions: Please take your medications as prescribed. Please follow up with your PCP in 3-5 days. Please ensure you follow with all subspecialties as discussed on the day of discharge. Discharge Diet: Cardiac Discharge Activity: As tolerated Discharge Follow Up Appointments: Contact information for follow-up [facility] [address] [facility] [address] Next Steps: Go in 2 week(s) Instructions: Nephrology follow up 12/30/24 @8:45am Follow up with [facility] in 1-2 weeks with renal function panel Primary care provider (PCP) Next Steps: Follow up Monika Hernandez APRN [facility] Primary Care [address] [place] [id number] Next Steps: Go in 1 week(s) Instructions: PCP follow up 12/22/24 @3:00pm Time Spent on Discharge: I spent 35 minutes in [id number] time with the patient and nursing staffconcerning the discharge process. We discussed the admitting diagnoses and the hospital course. We discussed identified improvement and the patient's desire to be discharged. We reviewed inpatient studies and imaging. The patient voiced understanding on the importance of follow-up with his primary care provider and specialist(s). The patient plans to be compliant with the medication regimen prescribed and follow up appointments. Patient understands that they can return to the emergency department with any sudden changes or concerns. Electronically signed by: Brad Coffman PA-C 12/14/2024, 12:42 PM Hospitalist [facility] * Mary Carmen Mcfadden MD - 12/07/2024 10:20 AM EDT Patient Name: Mary Coronel : 1960 Date of Admission: 11/30/2024 Date of Discharge: No discharge date for patient encounter. Primary Care Physician: JACKIE Find-a-Doc Consultations: Treatment Team: Consulting Physician: Nikolai Bryson MD Consulting Physician: Laura Batista MD Discharge Diagnoses: Anasarca Paroxysmal Atrial Fib *CAD *Diabetes mellitus *HTN *HLD *pancytopenia *GERMÁN current GFR 15. Nonalcoholic liver cirrhosis with ascites Ascites Status post paracentesis Duodenal ulcer Anasarca Diabetes mellitus Acute renal failure Reason for Admission: Mary Coronel is a 64 y.o. female presenting with past medical history of NAFLD October 2024, hypertension, hyperlipidemia, diabetes, CKD, CAD, arthritis. Patient presented to [facility] with swollen abdomen, abdominal discomfort and bilateral lower extremity pitting edema.Patient's BUN/creatinine elevated, and patient subsequently transferred to [facility] for hepatorenal syndrome evaluation. Admits to 4 weeks of progressive SOB, FUNK, orthopnea, lower extremity swelling, abdominal swelling, ataxia issues. States beforementioned symptoms have gotten worse over past week. Also states she has gained 16 pounds over past week. Admitts to chronic RUQ, diffuse abdominal discomfort which is worsened over past week. Reports decreased urine output x 7 days. Patient informed by outside emergency room that she may require temporary dialysis during this hospitalization. Reports no current GI follow-up for cirrhosis. Also admits to dark tarry stools recently. Patient also suffered intermittent altered mental status of the last few days. Patient's niece forced patient to visit [facility] emergency room today she really loves me. States that she lives alonewithout home support at baseline. States she takes oral Lasix at home at baseline. States over pastfew days she has doubled home Lasix dosage without increase in urine output. Denies history of kidney, heart, lung disease. Hospital Course: This is a 64 years old female who was admitted for anasarca and ascites with GERMÁN, she developed A-fib with RVR, was on amiodarone drip, creatinine is trending down gradually 64-year-old female with history of liver cirrhosis patient admitted to the hospital with acute renal failure liver cirrhosis ascites status post paracentesis patient started on IV antibiotic improving also was found with A- fib started on amiodarone patient improving stable can be discharged to rehab today to follow-up as outpatient Kidney function stable no need for dialysis Recommend to follow-up as outpatient with nephrology Avoid nephrotoxic medication Studies Performed: Procedures Performed: Status post EGD Impression: EV Retained food Duodenal ulcer PLAN: BID PPI x 8 weeks. Repeat EGD in 8-12 weeks to assess varices outside of acute episode. Abx no morethan 5 days for motility benefit in cirrhotic bleeding. Clear liquid diet today. Discharge Medications: Your medication list START taking these medications Instructions Comments Quantity Refills amiodarone 200 MG tablet Commonly known as: PACERONE Take 1 tablet (200 mg total) by mouth daily for 30 days. 30 tablet 0 amoxicillin-clavulanate 500-125 mg per tablet Commonly known as: AUGMENTIN Take 1 tablet by mouth 2 (two) times daily for 7 days. 14 tablet 0 ergocalciferol 1,250 mcg (50,000 unit) capsule Commonly known as: DRISDOL Take 1 capsule (50,000 Units total) by mouth every 7 days for 30 days. 4 capsule 0 gabapentin 100 MG capsule Commonly known as: NEURONTIN Replaces: gabapentin 800 MG tablet Take 2 capsules (200 mg total) by mouth 3 (three) times daily for 3 days. Max Daily Amount: 600 mg 0 lactulose 10 gram/15 mL solution Commonly known as: CHRONULAC Take 15 mLs (10 g total) by mouth 2 (two) times daily. 900 mL 0 pantoprazole 40 MG tablet Commonly known as: PROTONIX Take 1 tablet (40 mg total) by mouth 2 (two) times daily for 30 days. 60 tablet 0 rifAXIMin 550 mg Commonly known as: XIFAXAN Take 1 tablet (550 mg total) by mouth 2 (two) times daily. 60 tablet 0 CONTINUE taking these medications Instructions Comments Quantity Refills albuterol 90 mcg/actuation inhaler Inhale 1 puff by mouth every 6 (six) hours as needed for wheezing. 0 ammonium lactate 12 % cream Commonly known as: AMLACTIN Apply 1 g topically as needed for dry skin. 0 aspirin 81 MG chewable tablet Take 1 tablet (81 mg total) by mouth daily. 0 atorvastatin 20 MG tablet Commonly known as: LIPITOR Take 1 tablet (20 mg total) by mouth nightly. 0 bisoprolol 10 MG tablet Commonly known as: ZEBETA Take 1 tablet (10 mg total) by mouth 2 (two) times daily. 0 cholecalciferol 125 mcg (5,000 unit) tablet Commonly known as: VITAMIN D3 Take 2 tablets (10,000 Units total) by mouth daily. 0 clopidogreL 75 mg tablet Commonly known as: PLAVIX Take 1 tablet (75 mg total) by mouth daily Look-alike/Sound-alike medication. 0 colestipoL 1 gram tablet Commonly known as: COLESTID Take 2 tablets (2 g total) by mouth daily. 0 dicyclomine 10 MG capsule Commonly known as: BENTYL Take 1 capsule (10 mg total) by mouth 2 (two) times daily. 0 furosemide 40 MG tablet Commonly known as: LASIX Take 1 tablet (40 mg total) by mouth 2 (two) times daily. 0 HYDROcodone-acetaminophen 10-325 mg per tablet Commonly known as: MORE Notes to patient: Limit Tylenol (acetaminophen) from ALL sources to 2000 mg/day Take 1 tablet by mouth every 6 (six) hours as needed for pain. Max Daily Amount: 4 tablets 0 hydrOXYzine pamoate 50 MG capsule Commonly known as: VISTARIL Take 1 capsule (50 mg total) by mouth every night as needed for itching (sleep) Look-alike/Sound-alike medication. 0 insulin aspart U-100 100 unit/mL (3 mL) Inpn Commonly known as: NovoLOG Inject under the skin 4 (four) times daily before meals and nightly. 0 STOP taking these medications gabapentin 800 MG tablet Commonly known as: NEURONTIN Replaced by: gabapentin 100 MG capsule lisinopriL 10 MG tablet Commonly known as: ZESTRIL metFORMIN 1000 MG tablet Commonly known as: GLUCOPHAGE tirzepatide 7.5 mg/0.5 mL Pnij triamcinolone 0.1 % topical cream Commonly known as: KENALOG Where to Get Your Medications These medications were sent to [facility] [address] [address] amiodarone 200 MG tablet amoxicillin-clavulanate 500-125 mg per tablet ergocalciferol 1,250 mcg (50,000 unit) capsule lactulose 10 gram/15 mL solution pantoprazole 40 MG tablet rifAXIMin 550 mg Information about where to get these medications is not yet available Ask your nurse or doctor about these medications gabapentin 100 MG capsule Physical Exam Head atraumatic normocephalic Pupils round and reactive Eyes no conjunctival injection or discharge Ears no discharge Nose no bleeding or discharge Mouth dry Neck supple full range of motion Chest Diminished in the bilateral breath expiratory wheezes Heart S1 and S2 healed regular rate Abdomen soft audible bowel sounds no tenderness Extremities no edema erythema or tenderness Neurological patient alert awake move extremities Psychiatric anxiety Skin no apparent rashes Endocrine no thyromegaly tenderness General Patient in bed mild distress Discharge Instructions Discharge Diet: Diabetic diet Discharge Activity: As tolerated Discharge Follow UP: Primary care physician 3 to 4 days GI in 1 to 2-week Nephrology 1 to 2-week Disposition [facility] Time Spent: 45 min Electronically signed by Mary Carmen Mcfadden MD, 12/07/24, 10:20 AM EDT documented in this encounter Medications at Time of Discharge albuterol 90 mcg/actuation inhaler Inhale 1 puff by mouth every 6 (six) hours as needed for wheezing. ammonium lactate (AMLACTIN) 12 % cream Apply 1 g topically as needed for dry skin. atorvastatin (LIPITOR) 20 MG tablet Take 1 tablet (20 mg total) by mouth nightly. bumetanide (BUMEX) 2 MG tablet Take 1 tablet (2 mg total) by mouth 2 (two) times daily. 60 tablet 12/14/2024 HYDROcodone-acet aminophen (NORCO) 10-325 mg per tablet Take 1 tablet by mouth every 6 (six) hours as needed for pain. Max Daily Amount: 4 tablets hydrOXYzine pamoate (VISTARIL) 50 MG capsule Take 1 capsule (50 mg total) by mouth every night as needed for itching (sleep) Look-alike/So und-alike medication. insulin aspart U-100 (NovoLOG) 100 unit/mL (3 mL) inpn Inject under the skin 4 (four) times daily before meals and nightly. lactulose (CHRONULAC) 10 gram/15 mL solution Take 15 mLs (10 g total) by mouth 2 (two) times daily. 900 mL 12/06/2024 metOLazone (ZAROXOLYN) 2.5 MG tablet Take 1 tablet (2.5 mg total) by mouth daily as needed. 30 tablet 12/14/2024 rifAXIMin (XIFAXAN) 550 mg Take 1 tablet (550 mg total) by mouth 2 (two) times daily. 60 tablet 12/06/2024 spironolactone (ALDACTONE) 25 MG tablet Take 0.5 tablets (12.5 mg total) by mouth daily. 15 tablet 12/14/2024 tamsulosin (FLOMAX) 0.4 mg cap 24 hr capsule Take 1 capsule (0.4 mg total) by mouth every evening for 30 days. 30 capsule 12/14/2024 5 amiodarone (PACERONE) 200 MG tablet Take 1 tablet (200 mg total) by mouth daily for 30 days. 30 tablet 12/07/2024 5 ergocalciferol (DRISDOL) 1,250 mcg (50,000 unit) capsule Take 1 capsule (50,000 Units total) by mouth every 7 days for 30 days. 4 capsule 12/07/2024 5 gabapentin (NEURONTIN) 100 MG capsule Take 1 capsule (100 mg total) by mouth 3 (three) times daily for 3 days. Max Daily Amount: 300 mg 9 capsule 12/14/2024 5 pantoprazole (PROTONIX) 40 MG tablet Take 1 tablet (40 mg total) by mouth 2 (two) times daily for 30 days. 60 tablet 12/06/2024 5 documented as of this encounter Progress Notes * Hema Cervantes MD - 12/14/2024 1:33 PM EDT Subjective: Seen and examined at bedside no complaints. . Happy going home today. Edema is significantly better. She lost more than 5 pounds in the last 24 hours. Discussed extensively about checking weight daily. Objective: Blood pressure 125/65, pulse 86, temperature 98.1 ??F (36.7 ??C), temperature source Oral, resp. rate 18, height 1.676 m (5' 6 ), weight 83.9 kg (185 lb), SpO2 92%. Intake/Output Summary (Last 24 hours) at 12/14/2024 1333 Last data filed at 12/14/2024 1200 Gross per 24 hour Intake 540 ml Output 800 ml Net -260 ml 12/13 0700 - 12/14 0659 In: 850 [P.O.:850] Out: 971 [Urine:970] Physical Exam: General Appearance: NAD Neuro: awake alert, no focal deficit noted Psych: Normal mood and affect, cooperative with exam Eyes: Pupils Equal, no conjunctivitis ENT: OMMM CV: RRR, ++ + edema Lungs: respirations regular and unlabored, symmetrical chest expansion Abdomen: not distended, NTTP Skin: No rash, Warm and dry Labs: Recent Labs Lab(s) Units 12/14/24 0254 12/13/24 0315 12/12/24 0347 WBC K/??L 1.4* 1.4* 1.4* HGB GM/DL 7.6* 7.4* 7.3* PLT K/CU MM 51* 52* 43* Recent Labs Lab(s) Units 12/14/24 0254 12/13/24 0315 12/12/24 0347 12/11/24 0339 12/10/24 0953 NA meq/L 145 147* 144 146* -- K meq/L 3.5 3.5 3.4 3.7 -- CL meq/L 109 110 110 114* -- CO2 meq/L 27 27 26 26 -- BUN mg/dL 67.7* 71.9* 70.7* 74.9* -- CREATININE mg/dL 2.22* 2.29* 2.28* 2.61* -- CALCIUM mg/dL 8.6 8.5 8.3* 8.2* -- MG mg/dL -- -- -- -- 2.3 ALBUMIN g/dL 3.2* 3.1* -- -- -- A/P: 1- Anasarca - liver disease and low albumin level plus NSAID for one month 2- GERMÁN on CKD - Unknown baseline - on Lisinopril at home. Third spacing and recently increased doseof diuretics. Pre-renal azotemia - On lisinopril and NSAID and recently increased dose of diureticswith low albumin level vs HRS- Feure[place] 27% suggestive of pre-renal azotemia SFLC ratio 1.4, JEANA (-) ANCA (-) MPO(-), PR3(-) 4- Pancytopenia -Hematology following - S/p EGD 12/01/24 showing duodenal ulcer and small varices. S/p bone marrow biopsy 5- hx of DM 6- HTN 7- NAFLD 8- Ascites Plan: - Creatinine slightly improving, noted to be less edematous with increasing diuretics ; continue with diuretics-. Currently on Bumex to 2 mg BID with Aldactone 12.5 mg po daily and metolazone 2.5 mg daily. [Need to do metolazone as needed] - Monitor I/O strictly. Need to check weight daily on standing scale. - Avoid nephrotoxic agents - no NSAID - Continue to hold Lisinopril and metformin for GERMÁN - Renal diet - Adjust meds per renal function - No emergent need of PHARMACOMETRICIAN - Monitor H/H and transfuse for Hgb less than 7.0 Follow up with [facility] in 1-2 weeks with renal function panel Hema Cervantes MD 12/14/24 12:15 PM * KENNEY Zaragoza - 12/14/2024 12:17 PM EDTSumemmanuelle: Case Management DCP - Home with Home Health Discharge Plan Progress Note Case Management met with patient at bedside. Patient expressed wanting to go home rather than to rehab. Expressed she felt safe to go home, able to ambulate well, and take care of self. Has needed DME (2x RW, toilet riser, shower chair, etc). Neighbors to assist with needs, and her sister, Jojo lives about 5 minutes away. Sister is able to transport home per patient, after 4 pm with enough time in advance of known discharge. Patient is agreeable to home with home health. Patient has no preferences for home health, just ones that won't be an out of pocket expense. Patient voiced understanding that the Home Health Agency, if accepted, will follow up with patient bu voice call. Patient can follow up with their PCP for additional home health needs. Patient/family provided with [facility] approved choice list and Patient choice letter along with Quality data link to access Medicare.gov Care Compare website to review potential post-acute providers. Choice provided to patient/family, and patient preferences received and referral(s) submitted to requested providers. Referral(s) submitted to: - declined Andrew, - accepted and will f/u w/patient - declined - declined KENNEY Zaragoza * Jayde Hansen PTA - 12/14/2024 10:14 AM EDT Images from the original note were not included. Inpatient Physical Therapy Treatment Patient Name: Mary Coronel Date of : 1960 Date of Treatment: 12/14/24 Start Time 0947 Stop Time 1014 Session Duration 27 minutes General Visit Type: Treatment Approved By: Nurse Doan Patient Disposition Upon Entry: Supine in bed, Call Light/Pull Cord in reach, All needs met and within reach Patient Verified By: Name and Date of Precautions Weight-Bearing Status: No Restrictions Precautions: Fall risk Isolation Precautions: Standard Subjective Subjective: Patient agreeable to physical therapy treatment. Pain No - Patient not reporting pain at this time Cognition Orientation Level: Oriented x4 Objective Functional Mobility Bed Mobility: Supine to Sit: supervision Sit to Supine: supervision Transfers Sit to Stand: supervision, gait belt used, rolling walker used Stand to Sit: supervision, gait belt used, rolling walker used Gait Gait Assistance: supervision Assistive Device: Gait Belt, Rolling walker Distance: 560' Stair Management Unable to assess due to deconditioning, fatigue, weakness, and impaired balance . Wheelchair Mobility Unable to assess due to deconditioning, fatigue, weakness, and impaired balance . AM-PAC Basic Mobility Inpatient Short Form How much difficulty does the patient currently have: Turning over in bed (including adjusting bedclothes, sheets, and blankets)? (1) Total/Unable (not able to do the activity or can only perform the activity using assistive devices or requires assistance from another person, including supervision or cueing for safety) Sitting down on and standing up from a chair with arms (e.g., wheelchair, bedside commode, etc.)? (1) Total/Unable (not able to do the activity or can only perform the activity using assistive devices or requires assistance from another person, including supervision or cueing for safety) Moving from lying on back to sitting on side of bed? (1) Total/Unable (not able to do the activity or can only perform the activity using assistive devices or requires assistance from another person,including supervision or cueing for safety) How much help from another person does the patient currently need: Moving to and from a bed to a chair (including a wheelchair)? (3) A little (Minimal/Contact guard/Supervision/Setup) Need to walk in hospital room? (3) A little (Minimal/Contact guard/Supervision/Setup) Climbing 3-5 steps with a railing? (3) A little (Minimal/Contact guard/Supervision/Setup) Score Raw score=12 t-Scale score=35.33 Standard error=3.08 [facility] 0-100%=68.66% MDC=4.72 A raw score of >= 16 is significantly associated with increased odds of discharge to home in addition to consideration made for the patient's cognition and social determinants of health. Balance Static/dynamic sitting and static/dynamic standing balance grades Balance Grade Sitting Static Normal - patient able to maintain steady balance without handhold support Sitting Dynamic Fair - patient accepts minimal challenge; able to maintain balance while turning head/trunk Standing Static Fair - patient able to maintain balance with handhold support; may require occasional minimal assistance Standing Dynamic Fair - patient accepts minimal challenge; able to maintain balance while turning head/trunk Activity Tolerance Patient limited with activity/intervention due to fatigue and deconditioning Assessment Patient was able to ambulate with supervision for safety. Patient would benefit from continued therapy to increase endurance and decrease safety risk and caregiver burden. Plan Treatment plan: Continue per plan of care. PT Frequency/Duration: 5x/week for 14 days Recommendations Discharge recommendations: If the patient is declining/denied post-acute placement, patient would benefit from continued therapy services and supervision DME recommendations: Patient has no DME/adaptive equipment discharge needs at this time. Goals Supine to/from sit: IND from bed flat Sit to/from stand: De[place]ra RW Gait: 450ft RW [place] Balance: Pt will stand 2min unsupported in normal stance no LOB SBA only Target Date: 12/19/2024 Progress towards goals: progressing Education Patient educated on safety, role of physical therapy, and plan of care and following, they were able to verbalize understanding. No further questions or concerns stated. Patient Disposition Upon Leaving Supine in bed, Call Light/Pull Cord in reach, All needs met and within reach If this patient discharges prior to next therapy session, this note serves as the patient's discharge summary. Electronically signed by Jayde Hansen PTA - 12/14/24 - 4:08 PM EDT Cosigned by Alberto Love PT at 12/15/2024 10:54 AM EDT Associated attestation - Alberto Love PT - 12/15/2024 9:54 AM CDT I, Alberto Love PT, DPT, reviewed the notes, assessments, and/or procedures performed by Jayde Hansen PTA, I concur with their documentation of Mary Coronel. Electronically signed by Alberto Love PT, DPT - 12/15/24 - 10:54 AM EST * David Coffman PA-C - 12/13/2024 3:35 PM EDT [facility] Progress Note Patient: Mary Coronel Subjective Chief Complaint / Reason for Follow-Up Mary Coronel is a 64 y.o. female on hospital day 13. The principal reason for today's follow up visit is Anasarca. Interval History Patient seen and evaluated this morning No acute events overnight Hemodynamics and labs for past 24 hours reviewed Patient reports she thinks that she is getting better. Reports no shortness of air. Thinks that herabdomen is getting smaller. Tolerating oral diet. No nausea or vomiting. Blas catheter remains in place. Denies fevers or chills. No rash or diarrhea. Afebrile. White blood cell count still low but stable 1400. Bone marrow aspirate negative for any abnormality. Renal function stable BUN 71.9 and creatinine 2.29. Sodium 147. Potassium 3.5. Bicarb normal 27. Anion gap 14. Hemoglobin hematocrit are low but stable 7.4 and 23.4% respectively. Platelets are low at 52,000 and stable. Review of Systems Complete 12 system review was performed pertinent positives as above, otherwise negative. Objective Vitals: Temp: [97.7 ??F (36.5 ??C)-98.6 ??F (37 ??C)] 97.7 ??F (36.5 ??C) Pulse: [77-90] 90 Resp: [17-21] 18 BP: (116-155)/(56-68) 122/56 FiO2 (%): [35 %] 35 % Intake/Output: Intake/Output Summary (Last 24 hours) at 12/13/2024 1535 Last data filed at 12/13/2024 1300 Gross per 24 hour Intake -- Output 822 ml Net -822 ml Physical exam: Awake, alert, no acute distress. Oriented x 3. Head atraumatic and normocephalic. Neck is supple without lymphadenopathy. Heart regular rate and rhythm without rub murmur or gallop. No JVD. No HJR. Lungs are clear to auscultation bilaterally. No rhonchi, rales, wheezes. No retractions. No accessory muscle use. Abdomen obese, soft, nontender, nondistended. Bowel sounds positive x 4. No rebound or guarding. Extremities 2+ bilateral lower extremity edema. No shakes, tremors, seizures. Medications: Scheduled Meds: amiodarone 200 mg oral Daily 200 mg at 12/13/24 0902 atorvastatin 20 mg oral Every Night 20 mg at 12/12/24 2144 bumetanide 2 mg oral BID 2 mg at 12/13/24 0903 ergocalciferol 50,000 Units oral Q7 Days 50,000 Units at 12/07/24 1446 gabapentin 100 mg oral TID 100 mg at 12/13/24 1420 insulin lispro 0-18 Units subcutaneous 4x Daily AC 9 Units at 12/13/24 1314 lactulose 10 g oral BID 10 g at 12/13/24 0902 metOLazone 2.5 mg oral Daily 2.5 mg at 12/13/24 0903 pantoprazole 40 mg oral BID 40 mg at 12/13/24 0902 rifAXIMin 550 mg oral BID 550 mg at 12/13/24 0902 spironolactone 12.5 mg oral Daily 12.5 mg at 12/13/24 0903 tamsulosin 0.4 mg oral QPM 0.4 mg at 12/12/24 1606 Continuous Infusions: Current Facility-Administered Medications Medication Dose Route Frequency Provider Last Rate Last Admin acetaminophen (TYLENOL) tablet 500 mg 500 mg oral Q4H PRN Huey Hurtado MD 500 mg at 12/10/24 0026 albuterol 2.5 mg /3 mL (0.083 %) nebulizer solution 2.5 mg 2.5 mg nebulization Q6H PRN Albert Garcia MD amiodarone (PACERONE) tablet 200 mg 200 mg oral Daily Deysi Foss MD 200 mg at 12/13/24 0902 ammonium lactate (LAC-HYDRIN) lotion 12% topical PRN Huey Hurtado MD atorvastatin (LIPITOR) tablet 20 mg 20 mg oral Every Night Huey Hurtado MD 20 mg at 12/12/24 2144 benzocaine-menthoL (CEPACOL) lozenge 1 lozenge 1 lozenge buccal Q2H PRN Timothy Bai MD bumetanide (BUMEX) tablet 2 mg 2 mg oral BID Hema Cervantes MD 2 mg at 12/13/24 0903 dextrose 50% (D50W) injection 25 g 25 g intravenous Q15 Min PRN Huey Hurtado MD ergocalciferol (DRISDOL) capsule 50,000 Units 50,000 Units oral Q7 Days Timothy Bai MD 50,000 Units at 12/07/24 1446 gabapentin (NEURONTIN) capsule 100 mg 100 mg oral TID Blanka Malagon MD 100 mg at 12/13/24 1420 glucagon injection 1 mg 1 mg intraMUSCULAR Q15 Min PRN Huey Hurtado MD glucose chew tab 16 g 16 g oral Q15 Min PRN Huey Hurtado MD hydrALAZINE (APRESOLINE) injection 10 mg 10 mg intravenous Q6H PRN Huey Hurtado MD 10 mg at 431 insulin lispro (HUMALOG, ADMELOG) injection 0-18 Units 0-18 Units subcutaneous 4x Daily MARIAN Hurtado MD 9 Units at 12/13/24 1314 lactulose (CHRONULAC) 10 gram/15 mL solution 10 g 10 g oral BID Timothy Bai MD 10 g at 12/13/24 0902 [Held by provider] melatonin tablet 3 mg 3 mg oral Every Night PRN Huey Hurtado MD metOLazone (ZAROXOLYN) tablet 2.5 mg 2.5 mg oral Daily Hema Cervantes MD 2.5 mg at 12/13/24 0903 ondansetron (ZOFRAN-ODT) disintegrating tablet 4 mg 4 mg oral Q8H PRN Huey Hurtado MD Or ondansetron (ZOFRAN) injection 4 mg 4 mg intravenous Q8H PRN Huey Hurtado MD 4 mg at 12/08/24 1140 oxyCODONE (ROXICODONE) immediate release tablet 5 mg 5 mg oral Q4H PRN Mary Carmen Mcfadden MD 5 mg at 12/08/24 1613 pantoprazole (PROTONIX) EC tablet 40 mg 40 mg oral BID Mary Carmen Mcfadden MD 40 mg at 12/13/24 0902 prochlorperazine (COMPAZINE) injection 10 mg 10 mg intravenous Q6H PRN Huey Hurtado MD rifAXIMin (XIFAXAN) tablet 550 mg 550 mg oral BID Destiney Llanes APRN 550 mg at 12/13/24 0902 sodium chloride 0.9 % infusion 20 mL/hr intravenous Once Denilson Hodgson DO sodium chloride flush 10 mL 10 mL intravenous PRN Huey Hurtado MD spironolactone (ALDACTONE) tablet 12.5 mg 12.5 mg oral Daily Hill Boo MD 12.5 mg at 12/13/24 0903 tamsulosin (FLOMAX) capsule 0.4 mg 0.4 mg oral QPM David Coffman PA-C 0.4 mg at 12/12/24 1606 Radiology: Assessment and Plan Primary Diagnosis: Respiratory failure with anasarca Secondary Diagnosis: Principal Problem: Anasarca Anasarca Cirrhosis by ultrasound - Underlying metabolic associated steatohepatitis. - Status post paracentesis 12/10 (7.5 L), 11/30 (6 L). - Continuing Aldactone, Bumex. - Continue lactulose, had elevated ammonia on admission. - Continue rifaximin. Paroxysmal atrial fibrillation/NSVT - Echo 11/30--EF 55% ??5% borderline systolic strain pattern grade 2 diastolic dysfunction. - Being followed by EP cardiology. - On amiodarone 200 twice daily for a month then 200 mg daily. - Not a candidate for anticoagulation due to pancytopenia, risk of GI bleed (nonbleeding duodenal ulcer, small varices seen on EGD). - Follow electrolytes closely, replace as needed. Pancytopenia. - Bone marrow biopsy 12/02--unremarkable. - Low but stable at this time. - Transfuse for hemoglobin less than 7. - Hematology/oncology following. Acute hypoxemic/hypercapnic respiratory failure - [place] to be due to pulmonary edema from diastolic heart failure. - Improved. Now on room air. - Continuing diuresis. -Pulmonology following. - BiPAP when sleeping/napping and as needed. Noted desaturation when sleeping without it. - Titrate FiO2 for saturation greater than equal 92%. Acute diastolic heart failure present on admission - Continuing diuresis. -JUSTIN inhibitor, bisoprolol on hold due to renal function. Acute kidney injury. - Being followed by nephrology. - Being aggressively diuresed. - Follow and replace electrolytes. - Avoid nephrotoxins, NSAIDs. - Renally dose all medications. - Metformin and lisinopril currently on hold. Diabetes mellitus - Goal glucose 140-180. - Mostly within goal. - Continue sliding scale insulin. Urine retention - Voiding trial today. - Continue Flomax. - Encourage ambulation, getting out of bed. Likely obstructive sleep apnea - Noted to drop saturation to 80% while sleeping off BiPAP. - Will need outpatient split-night polysomnography. Decline in functional mobility. - Continuing physical and Occupational Therapy. - Plan for SNF/rehab pending medical readiness and pre-CERT Diet: Orders Placed This Encounter Procedures Heart Healthy Diet DVT ppx: SCDs Code Status: Full Code Discharge Planning: Barriers to discharge: Pending medical improvement Expected (tentative) discharge in 3-5 days Expected discharge disposition (home, SNF/Rehab, etc): TBD Signed: Brad Coffman PA-C [facility] Hospitalist * Rea Bishop, ANALISA - 12/13/2024 3:[address] ADIME NUTRITION ASSESSMENT ADIME Nutrition Assessment The patient is a 64 y.o. female admitted with acute renal failure, live cirrhosis, ascites (s/p paracentesis 11/30 with 6L removed and 12/10 with 7.5 L removed) Present on Admission: Anasarca (Admitting Diagnoses) Nutrition Evaluation Type: Follow Up Reason for Evaluation: RD screen for LOS Subjective Comments: 12/13: Moderate f/u. Pt on heart healthy diet. No recent intakes recorded. Pt states she ate about half of breakfast this AM but wasn't hungry for lunch. No food preferences given at this time. Has been receiving Glucerna with meals and likes them - encouraged continued consumption. 60g CHO diet wasnot added back to diet order following procedure. Will hold off on restricting carbs at this time until intakes are consistently >50% 12/06: Pt on heart healthy, 60g CHO diet with poor PO intakes reported. 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 Requested chicken noodle soup for lunch. Agreeable to ONS TID. Past Medical/Surgical History: Past Medical History: Diagnosis Date Cirrhosis, non-alcoholic (HCC) Diabetes mellitus (HCC) Hypertension Past Surgical History: Procedure Laterality Date ESOPHAGOGASTRODUODENOSCOPY (EGD),REMOVAL FOREIGN BODY N/A 12/01/2024 Procedure: EGD, WITH FOREIGN BODY REMOVAL; Surgeon: Scott Daley MD; [facility]; Service: Gastroenterology; Laterality: N/A; Vitals and Basic Assessment: Vitals: Vitals: 12/13/24 0930 BP: Pulse: Resp: Temp: SpO2: 94% Oxygen:O2 Flow Rate (L/min): 2 L/min Mumtaz Scale: Mumtaz Scale Score: 19 Last BM: Last BM Date: 12/13/24 GI: ascites, +BS Edema: Edema: Left lower extremity, Right lower extremity, Generalized, 2+ Skin: stg 2 PU to upper thigh (MDRPI) per WOCN on 12/07 Allergies: No Known Allergies Scheduled Medications: Current Facility-Administered Medications Medication Dose Route Frequency Provider Last Rate Last Admin acetaminophen (TYLENOL) tablet 500 mg 500 mg oral Q4H PRN Huey Hurtado MD 500 mg at 12/10/24 0026 albuterol 2.5 mg /3 mL (0.083 %) nebulizer solution 2.5 mg 2.5 mg nebulization Q6H PRN Albert aGrcia MD amiodarone (PACERONE) tablet 200 mg 200 mg oral Daily Deysi Foss MD 200 mg at 12/13/24 0902 ammonium lactate (LAC-HYDRIN) lotion 12% topical PRN Huey Hurtado MD atorvastatin (LIPITOR) tablet 20 mg 20 mg oral Every Night Huey Hurtado MD 20 mg at 12/12/24 214 benzocaine-menthoL (CEPACOL) lozenge 1 lozenge 1 lozenge buccal Q2H PRN Timothy Bai MD bumetanide (BUMEX) tablet 2 mg 2 mg oral BID Hema Cervantes MD 2 mg at 12/13/24 0903 dextrose 50% (D50W) injection 25 g 25 g intravenous Q15 Min PRN Huey Hurtado MD ergocalciferol (DRISDOL) capsule 50,000 Units 50,000 Units oral Q7 Days Timothy Bai MD 50,000 Units at 12/07/24 1446 gabapentin (NEURONTIN) capsule 100 mg 100 mg oral TID Blanka Malagon MD 100 mg at 12/13/24 1420 glucagon injection 1 mg 1 mg intraMUSCULAR Q15 Min PRN Huey Hurtado MD glucose chew tab 16 g 16 g oral Q15 Min PRN Huey Hurtado MD hydrALAZINE (APRESOLINE) injection 10 mg 10 mg intravenous Q6H PRN Huey Hurtado MD 10 mg at 431 insulin lispro (HUMALOG, ADMELOG) injection 0-18 Units 0-18 Units subcutaneous 4x Daily AC Huey Hurtado MD 9 Units at 12/13/24 1314 lactulose (CHRONULAC) 10 gram/15 mL solution 10 g 10 g oral BID Timothy Bai MD 10 g at 12/13/24 0902 [Held by provider] melatonin tablet 3 mg 3 mg oral Every Night PRN Huey Hurtado MD metOLazone (ZAROXOLYN) tablet 2.5 mg 2.5 mg oral Daily Hema Cervantes MD 2.5 mg at 12/13/24 0903 ondansetron (ZOFRAN-ODT) disintegrating tablet 4 mg 4 mg oral Q8H PRN Huey Hurtado MD Or ondansetron (ZOFRAN) injection 4 mg 4 mg intravenous Q8H PRN Huey Hurtado MD 4 mg at 12/08/24 1140 oxyCODONE (ROXICODONE) immediate release tablet 5 mg 5 mg oral Q4H PRN Mary Carmen Mcfadden MD 5 mg at 12/08/24 1613 pantoprazole (PROTONIX) EC tablet 40 mg 40 mg oral BID Mary Carmen Mcfadden MD 40 mg at 12/13/24 0902 prochlorperazine (COMPAZINE) injection 10 mg 10 mg intravenous Q6H PRN Huey Hurtado MD rifAXIMin (XIFAXAN) tablet 550 mg 550 mg oral BID Destiney Llanes APRN 550 mg at 12/13/24 0902 sodium chloride 0.9 % infusion 20 mL/hr intravenous Once Denilson Hodgson DO sodium chloride flush 10 mL 10 mL intravenous PRN Huey Hurtado MD spironolactone (ALDACTONE) tablet 12.5 mg 12.5 mg oral Daily Hill Boo MD 12.5 mg at 12/13/24 0903 tamsulosin (FLOMAX) capsule 0.4 mg 0.4 mg oral QPM David Coffman PA-C 0.4 mg at 12/12/24 1606 Drips: none Pertinent Labs: Na 147, Glu 135 (FSBS 221, 127, 182, 163), BUN 71, Cr 2.29, GFR 24 Lab Results Component Value Date HGBA1C 4.9 11/30/2024 Anthropometrics: Ht: Height: 167.6 cm (5' 6 ) Wt: Weight: 87.4 kg (192 lb 11.2 oz) Wt hx: 206# (04/19/23), 200# (03/26/24) BMI: Body mass index is 31.1 kg/m??. UBW: UTO IBW: 130# Percent IBW: 168% Current Nutrition Intake: Diet Orders: Diet Order(s): Heart Healthy Diet Supplements: Glucerna TID Intake: not well recorded. Pt reports 50% of breakfast today but no appetite for lunch (12/13) Enteral Nutrition? 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 Likely fluid related. Assessment of Malnutrition: Patient does not meet criteria for specified degree of malnutrition at this time. Will re-evaluate at follow-up as appropriate. Nutrition Diagnoses: Problem #1: Inadequate Oral Intake Etiology: inability to meet metabolic demand Signs/Symptoms: 25% intakes; need for ONS Status: New Nutrition Interventions and Recommendations: General, healthful diet and Commercial beverage Nutrition Monitoring and Goals: 1. Continue heart healthy. Will add Glucerna TID Goal: intakes >50% 2. Monitor glucose. Adjust insulin prn. Will add carb restriction once intakes are consistently >50% Goal: glucose 80-140 3. Obtain wt 2x weekly Goal: avoid involuntary significant wt change Nutrition Risk Level: Moderate Risk Rea Bishop RD * Carroll Nielsen MD - 12/13/2024 2:00 PM EDT Images from the original note were not included. PULMONARY AND CRITICAL CARE Consult Note Date of Service: 12/13/2024 HPI: This is a 64 y.o. year old female with past medical history as below. She initially presented to [facility] with swollen abdomen, abdominal discomfort, and bilateral lower extremity pain. Her creatinine was elevated and as a result, she was transferred to [facility] for he patorenal syndrome. Upon arrival here, she endorsed a 4-week history of shortness of breath, orthopnea, and ataxia along with the abdominal and lower extremity edema. She also endorsed recent black, tarry stools as well. Upon arrival here, labs of significance included WBC 1.9, platelets 64, creatinine 4.15, and CK 356. She underwent a paracentesis on 11/30 with 6 liters removed. EGD on 12/01 revealed a duodenal ulcer, but no evidence of active bleeding. She underwent a bone marrow biopsy on 12/02 and pathology result is still pending. On 12/03, she began having atrial fib with some runs of non-sustained v. tach. She is currently beingtransferred to the unit and Pulmonary has been consulted for critical care management. 12/04 I have seen and examined the patient this morning, her sister at bedside, have discussed with the patient and his sister about the patient condition answered all the questions and concerns, theyexpressed transcending, discussed with nephrology about the patient condition and plan, chest x-shawna 12/04 interpreted independently showed low lung volume bilaterally with worsening pulmonary edemaand vascular congestion, on nasal cannula 3 L oxygen saturation 95%, respiratory 27, pressure 140/65, pulse 86, temperature 98.2, ABG 7.29/43/100/6 with bicarb of 21, hemoglobin 9, platelets 65, WBC 4.1, sodium 146, creatinine 3.38, fluid balance +300 mL, on ceftriaxone. 12/06: Seen and examined, 64 years old female, laying in bed, 2 L nasal cannula, never smoker, denies any home oxygen at home, has been complaining of edema in the lower extremities/abdominal girth/ascites 12/07- re consult fore warseing ABG Hypercapnia/altered mental status needing BiPAP. Patient mechanically stable, follows some commandsrepeat ABG/BiPAP. Discussed with nursing team respiratory therapist/primary team 12/08: Seen and examined, 2 L nasal cannula, BiPAP hours until resolved/at night, taking p.o., ABG 7.28, pCO2 51, pO2 157 BiPAP 05/02. Patient refused higher pressure Plan for paracentesis, diuresis Bumex 1 mg twice daily 12/09: Seen examined. Nasal cannula alternating with BiPAP, taking p.o., awake alert oriented, complaining of abdominal distention, IR consulted for paracentesis. 12/10: Seen and examined, ABG improved, pH 7.30, pCO2 49, pO2 119 we will continue BiPAP at night, s/p paracentesis, Bumex 1 mg 3 times daily. Nephrology following, 4 L nasal cannula x-ray mild basilar atelectasis. 12/13 Patient was seen and evaluated this morning. No issues overnight. On room air. White blood cell was1.4. Hemoglobin 7.4. Platelets 52. PAST MEDICAL HISTORY: Past Medical History: Diagnosis Date Cirrhosis, non-alcoholic (HCC) Diabetes mellitus (HCC) Hypertension PAST SURGICAL HISTORY: Past Surgical History: Procedure Laterality Date ESOPHAGOGASTRODUODENOSCOPY (EGD),REMOVAL FOREIGN BODY N/A 12/01/2024 Procedure: EGD, WITH FOREIGN BODY REMOVAL; Surgeon: Scott Daley MD; [facility]; Service: Gastroenterology; Laterality: N/A; Allergies: No Known Allergies SOCIAL HISTORY: Social History Tobacco Use Smoking status: Never Passive exposure: Never Smokeless tobacco: Never Substance Use Topics Alcohol use: Never Drug use: Never FAMILY HISTORY: family history is not on file. Review of Systems Constitutional: Positive for malaise/fatigue. Respiratory: Positive for shortness of breath. Negative for cough and sputum production. Cardiovascular: Positive for leg swelling. Negative for chest pain. Gastrointestinal: Negative for abdominal pain, nausea and vomiting. Neurological: Positive for weakness. All other systems reviewed and are negative. Vital Signs Temp: [97.7 ??F (36.5 ??C)-98.6 ??F (37 ??C)] 97.9 ??F (36.6 ??C) Pulse: [77-90] 88 Resp: [17-21] 18 BP: (110-155)/(56-78) 150/78 FiO2 (%): [35 %] 35 % Current: Temp: 97.9 ??F (36.6 ??C) Pulse: 88 Resp: 18 BP: (!) 150/78 SpO2: 90 % 24 Hour: BP Min: 110/57 Max: 155/68 Temp Min: 97.7 ??F (36.5 ??C) Max: 98.6 ??F (37 ??C) Pulse Min: 77 Max: 90 Resp Min: 17 Max: 21 SpO2 Min: 90 % Max: 99 % Weight Min: 87.4 kg (192 lb 11.2 oz) Max: 87.4 kg (192 lb 11.2 oz) Intake/Output: I/O last 3 completed shifts: In: 850 [P.O.:850] Out: 2923 [Urine:2920; Stool:3] Physical Exam Constitutional: General: She is not in acute distress. Appearance: She is obese. She is ill-appearing. Comments: On room air. HENT: Head: Normocephalic. Nose: Nose normal. Mouth/Throat: Mouth: Mucous membranes are moist. Pharynx: Oropharynx is clear. Eyes: Pupils: Pupils are equal, round, and reactive to light. Cardiovascular: Rate and Rhythm: Normal rate and regular rhythm. Pulses: Normal pulses. Heart sounds: Normal heart sounds. Pulmonary: Effort: Pulmonary effort is normal. No respiratory distress. Breath sounds: Examination of the right-lower field reveals decreased breath sounds. Examination ofthe left-lower field reveals decreased breath sounds. Decreased breath sounds present. Abdominal: General: Bowel sounds are normal. Palpations: Abdomen is soft. Musculoskeletal: Cervical back: Normal range of motion. Right lower leg: Edema present. Left lower leg: Edema present. Skin: General: Skin is warm and dry. Capillary Refill: Capillary refill takes less than 2 seconds. Neurological: Mental Status: She is alert and oriented to person, place, and time. Mental status is at baseline. Psychiatric: Mood and Affect: Mood normal. Behavior: Behavior normal. Vent / O2 Management: FiO2 (%): [35 %] 35 % LABS Results for orders placed or performed during the hospital encounter of 11/30/24 (from the past 24 hours) Basic Metabolic Panel Status: Abnormal Collection Time: 12/13/24 3:15 AM Result Value Ref Range Sodium 147 (H) 136 - 145 meq/L Potassium 3.5 3.4 - 5.1 meq/L CO2 27 22 - 29 meq/L Chloride 110 98 - 112 meq/L Glucose 135 (H) 82 - 115 mg/dL BUN 71.9 (H) 9.8 - 20.1 mg/dL Creatinine 2.29 (H) 0.57 - 1.11 mg/dL BUN/Creatinine 31 (H) 8 - 20 Calcium 8.5 8.4 - 10.2 mg/dL Anion Gap 14 (H) 4 - 12 eGFR (mL/min/1.73m2) 24 (L) >=60 mL/min/1.73m2 Osmolality Calc 315.6 mOsm/kg CBC with automated diff Status: Abnormal Collection Time: 12/13/24 3:15 AM Result Value Ref Range WBC 1.4 (LL) 4.0 - 10.0 K/??L RBC 2.42 (L) 3.93 - 5.22 M/??L Hemoglobin 7.4 (L) 11.2 - 15.7 GM/DL Hematocrit 23.4 (L) 34.1 - 44.9 % MCV 97 (H) 79 - 95 fL MCH 30.6 25.6 - 32.2 pg MCHC 31.6 (L) 32.2 - 35.5 GM/DL RDW 16.4 (H) 11.7 - 14.4 % Platelets 52 (L) 140 - 375 K/CU MM MPV 12.1 9.4 - 12.3 fL % Neutros 56 34 - 71 % % Lymphs 28 19 - 52 % % Monos 15 (H) 5 - 13 % % Eos 0 (L) 1 - 6 % % Baso 1 0 - 1 % NRBC Absolute <0.01 0 - 0.012 K/ul # Neutros 0.80 (L) 1.56 - 6.13 K/??L # Lymphs 0.40 (L) 1.18 - 3.74 K/??L # Monos 0.21 (L) 0.24 - 0.86 K/??L # Eos <0.03 (L) 0.04 - 0.36 K/ L # Baso <0.03 0.01 - 0.08 K/ L Immature Granulocytes-Relative 0.00 (L) 0.01 - 0.43 % # IG <0.03 0.00 - 0.03 K/uL Hepatic function panel Status: Abnormal Collection Time: 12/13/24 3:15 AM Result Value Ref Range Protein, Total 5.7 (L) 6.4 - 8.3 g/dL Albumin 3.1 (L) 3.5 - 5.0 g/dL Total Bilirubin 0.8 0.2 - 1.2 mg/dL Bilirubin, Direct 0.4 0.0 - 0.5 mg/dL Alkaline Phosphatase 53 40 - 150 U/L Globulin 2.6 2.5 - 4.1 g/dL A/G Ratio 1.2 0.7 - 1.9 AST 42 (H) 11 - 34 U/L ALT 16 <=34 U/L CBC Scan Status: Abnormal Collection Time: 12/13/24 3:15 AM Result Value Ref Range Platelet Estimate Decreased (A) Adequate RBC Morphology abnormal (A) Normal Anisocytosis 1+ Hypochromia 1+ Ovalocytes 1+ Glucose, Nova Meter Status: Abnormal Collection Time: 12/13/24 5:46 AM Result Value Ref Range POC-GLUCOSE 127 (H) 70 - 110 mg/dL Laboratory Scientist [id number] Glucose, Nova Meter Status: Abnormal Collection Time: 12/13/24 11:15 AM Result Value Ref Range POC-GLUCOSE 221 (H) 70 - 110 mg/dL Laboratory Scientist [id number] Glucose, Nova Meter Status: Abnormal Collection Time: 12/13/24 4:24 PM Result Value Ref Range POC-GLUCOSE 156 (H) 70 - 110 mg/dL Laboratory Scientist [id number] Glucose, Nova Meter Status: Abnormal Collection Time: 12/13/24 8:20 PM Result Value Ref Range POC-GLUCOSE 186 (H) 70 - 110 mg/dL Laboratory Scientist [id number] Radiology Radiology Results (last day) No results found for the last 24 hours. Microbiology: Microbiology Results (last 7 days) Procedure Component Value Units Date/Time Fungus Culture W/ROSA MARIA Or Nimisha Ink [[id number]] Collected: 11/30/241602 Order Status: Completed Specimen: Peritoneal Fluid from Body Fluid Updated: 12/07/24 170 Result No fungus isolated at 1 week. ROSA MARIA Prep No fungal elements seen Narrative: Specimen Description: peritoneal fluid AFB Culture And Stain [[id number]] Collected: 11/30/241602 Order Status: Completed Specimen: Peritoneal Fluid from Body Fluid Updated: 12/07/24 170 Result No Acid Fast Bacilli isolated at 1 week. AFB Smear No acid fast bacilli seen Narrative: Specimen Description: peritoneal fluid ECHO Normal sized left ventricle. Normal left ventricular wall thickness. Visually estimated ejection fraction 55% +/- 5%. Borderline systolic strain pattern. Increased left atrial pressure (Grade II diastolic dysfunction). Sclerotic aortic valve leaflets. Trivial pericardial effusion measuring 0.3cm. posteriorly ASSESSMENT: Pulmonary Acute hypoxemic/hypercapnic respiratory failure requiring BiPAP... Improving. Acute pulmonary edema/ pulmonary vascular congestion, improving Never smoker GI Decompensated cirrhosis, new diagnosis MELD-NA score = 21 Hyperammonemia - improved S/p paracentesis on 11/30 - 6L removed S/p EGD on 12/01 - duodenal ulcer, no evidence of active bleeding Cardiac Grade 2 diastolic dysfunction New-onset atrial fib with non-sustained runs of v. tach - improved, on Amio gtt... Off Renal Acute on chronic kidney disease, baseline unknown Hypernatremia PLAN: Acute hypoxic /hypercapnic respiratory failure likely related to acute pulmonary edema which is most likely related to diastolic heart failure/ Chronic kidney disease/GIORDANO cirrhosis/ascites/volume overload Ultrasound of the liver: November 2024 underlying cirrhosis Paracentesis 11/30/2024: 6 L removed Echo EF 25%, grade 2 diastolic dysfunction, increased left atrial pressure trivial pericardial effusion Chest x-ray. Repeat chest x-ray showed bilateral basal atelectasis with possible pulm right-sided effusion. Last ABG was 7.30, 49, 119. Recommend to use BiPAP as needed for now. Continue Bumex 2 mg p.o. twice daily. On metolazone. Completed antibiotic. Repeated ABG improvement, repeat chest x-ray improvement Picture of volume overload likely related to combination of acute diastolic heart failure/renal failure/ascites with volume overload anasarca/pericardial effusion/ascites/lower extremity edema Nephrology following, recommended to continue with albumin/diuretics no indication for PHARMACOMETRICIAN No significant pleural effusion for thoracentesis If needed repeat chest x-ray. Otherwise continue diuresis Pulmonary will sign off. Please call for any issues Case discussed during round. I have personally evaluated the patient and performed a [id number] diagnostic evaluation on this patient; I have reviewed history, performed physical examination, reviewed laboratory studies. , andreviewed images independent of radiologist. I have actively directed the medical care, formulated assessemnt and plan of care. Patient requires a high complexity of decision making for assessment. Voice moss bleacher technology ([employer]) is used for dictation of this note and sound-alike words might be erroneously placed despite reviewing the note for accuracy.Errors in dictation may reflect use of voice recognition software and not all errors in moss bleacher may have been detectedprior to signing * Hema Cervantes MD - 12/13/2024 11:12 AM EDT Subjective: Seen and examined at bedside, patient reports doing much better Denies chest pain or shortness of breath. She is off oxygen today. Her weight is down by 2 pounds from yesterday. Will continue metolazone, Bumex and spironolactone for now. Discussed extensively about checking daily standing weights. . Objective: Blood pressure 122/56, pulse 90, temperature 97.7 ??F (36.5 ??C), resp. rate 18, height 1.676 m (5'6 ), weight 87.4 kg (192 lb 11.2 oz), SpO2 94%. Intake/Output Summary (Last 24 hours) at 12/13/2024 1112 Last data filed at 12/13/2024 0000 Gross per 24 hour Intake -- Output 2451 ml Net -2451 ml 12/12 0700 - 12/13 0659 In: - Out: 2452 [Urine:2450] Physical Exam: General Appearance: NAD Neuro: awake alert, no focal deficit noted Psych: Normal mood and affect, cooperative with exam Eyes: Pupils Equal, no conjunctivitis ENT: OMMM CV: RRR, ++ + edema Lungs: respirations regular and unlabored, symmetrical chest expansion Abdomen: not distended, NTTP Skin: No rash, Warm and dry Labs: Recent Labs Lab(s) Units 12/13/24 0315 12/12/24 0347 12/11/24 0336 WBC K/??L 1.4* 1.4* 1.7* HGB GM/DL 7.4* 7.3* 7.7* PLT K/CU MM 52* 43* 50* Recent Labs Lab(s) Units 12/13/24 0315 12/12/24 0347 12/11/24 0339 12/10/24 0953 12/09/24 0338 12/08/24 0410 12/07/24 0359 NA meq/L 147* 144 146* -- 148* < > 146* K meq/L 3.5 3.4 3.7 -- 3.6 < > 3.8 CL meq/L 110 110 114* -- 116* < > 118* CO2 meq/L 27 26 26 -- 23 < > 20* BUN mg/dL 71.9* 70.7* 74.9* -- 77.3* < > 72.9* CREATININE mg/dL 2.29* 2.28* 2.61* -- 2.82* < > 3.13* CALCIUM mg/dL 8.5 8.3* 8.2* -- 8.7 < > 8.4 MG mg/dL -- -- -- 2.3 -- -- 2.4 ALBUMIN g/dL 3.1* -- -- -- -- -- 4.1 < > = values in this interval not displayed. A/P: 1- Anasarca - liver disease and low albumin level plus NSAID for one month 2- GERMÁN on CKD - Unknown baseline - on Lisinopril at home. Third spacing and recently increased doseof diuretics. Pre-renal azotemia - On lisinopril and NSAID and recently increased dose of diureticswith low albumin level vs HRS- Feurea 27% suggestive of pre-renal azotemia SFLC ratio 1.4, JEANA (-) ANCA (-) MPO(-), PR3(-) 4- Pancytopenia -Hematology following - S/p EGD 12/01/24 showing duodenal ulcer and small varices. S/p bone marrow biopsy 5- hx of DM 6- HTN 7- NAFLD 8- Ascites Plan: - Creatinine slightly improving, noted to be less edematous with increasing diuretics ; continue with diuretics- Bumex to 2 mg BID with Aldactone 12.5 mg po daily and metolazone 2.5 mg daily. [Need to do metolazone as needed at the time of discharge] - Monitor I/O strictly. Need to check weight daily on standing scale. - Avoid nephrotoxic agents - no NSAID - Continue to hold Lisinopril and metformin for GERMÁN - Renal diet - Adjust meds per renal function - No emergent need of PHARMACOMETRICIAN - Monitor H/H and transfuse for Hgb less than 7.0 Follow up with [facility] in 1-2 weeks with renal function panel Hema Cervantes MD 12/13/24 12:15 PM * Jaydemalinda Hansen, HAND TOUCH UP PAINTER - 12/13/2024 10:28 AM EDT Images from the original note were not included. Inpatient Physical Therapy Treatment Patient Name: Mary Coronel Date of : 1960 Date of Treatment: 12/13/24 Start Time 1014 Stop Time 1028 Session Duration 14 minutes General Visit Type: Treatment Approved By: Nurse Doan Patient Disposition Upon Entry: Supine in bed, Call Light/Pull Cord in reach, All needs met and within reach Patient Verified By: Name and Date of Precautions Weight-Bearing Status: No Restrictions Precautions: Fall risk Isolation Precautions: Standard Subjective Subjective: Patient agreeable to physical therapy treatment. Pain No - Patient not reporting pain at this time Cognition Orientation Level: Oriented x4 Objective Functional Mobility Bed Mobility: Supine to Sit: supervision Sit to Supine: supervision Transfers Sit to Stand: stand by assist, gait belt used, rolling walker used Stand to Sit: stand by assist, gait belt used, rolling walker used Gait Gait Assistance: supervision Assistive Device: Gait Belt, Rolling walker Distance: 400' Stair Management Unable to assess due to deconditioning, fatigue, weakness, and impaired balance . Wheelchair Mobility Unable to assess due to deconditioning, fatigue, weakness, and impaired balance . AM-PAC Basic Mobility Inpatient Short Form How much difficulty does the patient currently have: Turning over in bed (including adjusting bedclothes, sheets, and blankets)? (1) Total/Unable (not able to do the activity or can only perform the activity using assistive devices or requires assistance from another person, including supervision or cueing for safety) Sitting down on and standing up from a chair with arms (e.g., wheelchair, bedside commode, etc.)? (1) Total/Unable (not able to do the activity or can only perform the activity using assistive devices or requires assistance from another person, including supervision or cueing for safety) Moving from lying on back to sitting on side of bed? (1) Total/Unable (not able to do the activity or can only perform the activity using assistive devices or requires assistance from another person,including supervision or cueing for safety) How much help from another person does the patient currently need: Moving to and from a bed to a chair (including a wheelchair)? (3) A little (Minimal/Contact guard/Supervision/Setup) Need to walk in hospital room? (3) A little (Minimal/Contact guard/Supervision/Setup) Climbing 3-5 steps with a railing? (3) A little (Minimal/Contact guard/Supervision/Setup) Score Raw score=12 t-Scale score=35.33 Standard error=3.08 CMS 0-100%=68.66% MDC=4.72 A raw score of >= 16 is significantly associated with increased odds of discharge to home in addition to consideration made for the patient's cognition and social determinants of health. Balance Static/dynamic sitting and static/dynamic standing balance grades Balance Grade Sitting Static Normal - patient able to maintain steady balance without handhold support Sitting Dynamic Fair - patient accepts minimal challenge; able to maintain balance while turning head/trunk Standing Static Fair - patient able to maintain balance with handhold support; may require occasional minimal assistance Standing Dynamic Fair - patient accepts minimal challenge; able to maintain balance while turning head/trunk Activity Tolerance Patient limited with activity/intervention due to fatigue and deconditioning Assessment Patient was able to ambulate with assistance for safety. Patient would benefit from continued therapy to increase endurance and decrease safety risk and caregiver burden. Plan Treatment plan: Continue per plan of care. PT Frequency/Duration: 5x/week for 14 days Recommendations Discharge recommendations: If the patient is declining/denied post-acute placement, patient would benefit from continued therapy services and supervision DME recommendations: Patient has no DME/adaptive equipment discharge needs at this time. Goals Supine to/from sit: IND from bed flat Sit to/from stand: Deidra RW Gait: 450ft RW Deidra Balance: Pt will stand 2min unsupported in normal stance no LOB SBA only Target Date: 12/19/2024 Progress towards goals: progressing Education Patient educated on safety, role of physical therapy, and plan of care and following, they were able to verbalize understanding. No further questions or concerns stated. Patient Disposition Upon Leaving Supine in bed, Call Light/Pull Cord in reach, All needs met and within reach If this patient discharges prior to next therapy session, this note serves as the patient's discharge summary. Electronically signed by Jayde Hansen PTA - 12/13/24 - 4:18 PM EDT Cosigned by Alberto Love PT at 12/15/2024 10:54 AM EDT Associated attestation - Alberto Love PT - 12/15/2024 9:54 AM CDT I, Alberto Love PT, DPT, reviewed the notes, assessments, and/or procedures performed by Jayde Hansen PTA, I concur with their documentation of Mary Coronel. Electronically signed by Alberto Love PT, DPT - 12/15/24 - 10:54 AM EST * Deysi Foss MD - 12/13/2024 8:39 AM EDT EP progress note Patient Name: Mary Coronel Admission Date: 11/30/2024 Primary Care Provider: JACKIE Find-a[facility] Chief Complaint/Reason for Consult: No chief complaint on file. History of Present Illness: Mary Coronel is a 64 y.o. female, admitted on: 11/30/2024 1:43 AM. presented to [facility] with swollen abdomen, abdominal discomfort and bilateral lower extremity pitting edema. Patient's BUN/creatinine elevated, and patient subsequently transferred to [facility] for hepatorenal syndrome evaluation. Admits to 4 weeks of progressive SOB, FUNK, orthopnea, lower extremit y swelling, abdominal swelling, ataxia issues. States beforementioned symptoms have gotten worse over past week. Also states she has gained 16 pounds over past week. Admitts to chronic RUQ, diffuse abdominal discomfort which is worsened over past week. Reports decreased urine output x 7 days. Pt was admitted with nonalcoholic liver cirrhosis with ascites and underwent paracentesis on 11/30 with 6Lremoved. EGD revealed a duodenal ulcer and small varices. While on telemetry, pt is having some afib and brief runs of NSVT. Asymptomatic. BP stable. EP consulted for evaluation and management. Medications: Prior to Admission Medications: Medications Prior to Admission Medication Sig Dispense Refill Last Dose/Taking albuterol 90 mcg/actuation inhaler Inhale 1 puff by mouth every 6 (six) hours as needed for wheezing. ammonium lactate (AMLACTIN) 12 % cream Apply 1 g topically as needed for dry skin. aspirin 81 MG chewable tablet Take 1 tablet (81 mg total) by mouth daily. atorvastatin (LIPITOR) 20 MG tablet Take 1 tablet (20 mg total) by mouth nightly. bisoprolol (ZEBETA) 10 MG tablet Take 1 tablet (10 mg total) by mouth 2 (two) times daily. cholecalciferol (VITAMIN D3) 125 mcg (5,000 unit) tablet Take 2 tablets (10,000 Units total) by mouth daily. clopidogreL (PLAVIX) 75 mg tablet Take 1 tablet (75 mg total) by mouth daily Look-alike/Sound-alike medication. colestipoL (COLESTID) 1 gram tablet Take 2 tablets (2 g total) by mouth daily. dicyclomine (BENTYL) 10 MG capsule Take 1 capsule (10 mg total) by mouth 2 (two) times daily. furosemide (LASIX) 40 MG tablet Take 1 tablet (40 mg total) by mouth 2 (two) times daily. HYDROcodone-acetaminophen (NORCO) 10-325 mg per tablet Take 1 tablet by mouth every 6 (six) hours as needed for pain. Max Daily Amount: 4 tablets hydrOXYzine pamoate (VISTARIL) 50 MG capsule Take 1 capsule (50 mg total) by mouth every night as needed for itching (sleep) Look-alike/Sound-alike medication. insulin aspart U-100 (NovoLOG) 100 unit/mL (3 mL) inpn Inject under the skin 4 (four) times daily before meals and nightly. [DISCONTINUED] gabapentin (NEURONTIN) 800 MG tablet Take 1 tablet (800 mg total) by mouth 3 (three)times daily. Max Daily Amount: 2,400 mg [DISCONTINUED] lisinopriL (ZESTRIL) 10 MG tablet Take 1 tablet (10 mg total) by mouth 2 (two) timesdaily. [DISCONTINUED] metFORMIN (GLUCOPHAGE) 1000 MG tablet Take 1 tablet (1,000 mg total) by mouth 2 (two) times daily with breakfast and dinner Look-alike/Sound-alike medication. [DISCONTINUED] tirzepatide 7.5 mg/0.5 mL pnij Inject 7.5 mg under the skin every 7 days. [DISCONTINUED] triamcinolone (KENALOG) 0.1 % topical cream Apply 0.1 Applications topically daily to affected area.. Scheduled Medications: amiodarone 200 mg oral Daily 200 mg at 12/12/24 0840 atorvastatin 20 mg oral Every Night 20 mg at 12/12/242143 bumetanide 2 mg oral BID 2 mg at 12/12/242143 ergocalciferol 50,000 Units oral Q7 Days 50,000 Units at 12/07/24 1446 gabapentin 100 mg oral TID 100 mg at 12/12/242143 insulin lispro 0-18 Units subcutaneous 4x Daily AC 6 Units at 12/12/24 2204 lactulose 10 g oral BID 10 g at 12/12/249 metOLazone 2.5 mg oral Daily 2.5 mg at 12/12/24 0858 pantoprazole 40 mg oral BID 40 mg at 12/12/242143 rifAXIMin 550 mg oral BID 550 mg at 12/12/242143 spironolactone 12.5 mg oral Daily 12.5 mg at 12/12/24 0840 tamsulosin 0.4 mg oral QPM 0.4 mg at 12/12/24 1606 Current Infusions: Current Facility-Administered Medications Medication Dose Route Frequency Provider Last Rate Last Admin acetaminophen (TYLENOL) tablet 500 mg 500 mg oral Q4H PRN Huey Hurtado MD 500 mg at 12/10/24 0026 albuterol 2.5 mg /3 mL (0.083 %) nebulizer solution 2.5 mg 2.5 mg nebulization Q6H PRN Albert Garcia MD amiodarone (PACERONE) tablet 200 mg 200 mg oral Daily Deysi Foss MD 200 mg at 12/12/24 0840 ammonium lactate (LAC-HYDRIN) lotion 12% topical PRN Huey Hurtado MD atorvastatin (LIPITOR) tablet 20 mg 20 mg oral Every Night Huey Hurtado MD 20 mg at 12/12/244 benzocaine-menthoL (CEPACOL) lozenge 1 lozenge 1 lozenge buccal Q2H PRN Timothy Bai MD bumetanide (BUMEX) tablet 2 mg 2 mg oral BID Hema Cervantes MD 2 mg at 12/12/242143 dextrose 50% (D50W) injection 25 g 25 g intravenous Q15 Min PRN Huey Hurtado MD ergocalciferol (DRISDOL) capsule 50,000 Units 50,000 Units oral Q7 Days Timothy Bai MD 50,000 Units at 12/07/24 1446 gabapentin (NEURONTIN) capsule 100 mg 100 mg oral TID Blanka Malagon MD 100 mg at 12/12/242143 glucagon injection 1 mg 1 mg intraMUSCULAR Q15 Min PRN Huey Hurtado MD glucose chew tab 16 g 16 g oral Q15 Min PRN Huey Hurtado MD hydrALAZINE (APRESOLINE) injection 10 mg 10 mg intravenous Q6H PRN Huey Hurtado MD 10 mg at 431 insulin lispro (HUMALOG, ADMELOG) injection 0-18 Units 0-18 Units subcutaneous 4x Daily AC Huey Hurtado MD 6 Units at 12/12/242203 lactulose (CHRONULAC) 10 gram/15 mL solution 10 g 10 g oral BID Timothy Bai MD 10 g at 12/12/242148 [Held by provider] melatonin tablet 3 mg 3 mg oral Every Night PRN Huey Hurtado MD metOLazone (ZAROXOLYN) tablet 2.5 mg 2.5 mg oral Daily Hema Cervantes MD 2.5 mg at 12/12/24 0858 ondansetron (ZOFRAN-ODT) disintegrating tablet 4 mg 4 mg oral Q8H PRN Huey Hurtado MD Or ondansetron (ZOFRAN) injection 4 mg 4 mg intravenous Q8H PRN Huey Hurtado MD 4 mg at 12/08/24 1140 oxyCODONE (ROXICODONE) immediate release tablet 5 mg 5 mg oral Q4H PRN Mary Carmen Mcfadden MD 5 mg at 12/08/24 1613 pantoprazole (PROTONIX) EC tablet 40 mg 40 mg oral BID Mary Carmen Mcfadden MD 40 mg at 12/12/242143 prochlorperazine (COMPAZINE) injection 10 mg 10 mg intravenous Q6H PRN Huey Hurtado MD rifAXIMin (XIFAXAN) tablet 550 mg 550 mg oral BID Destiney Llanes APRN 550 mg at 12/12/242143 sodium chloride 0.9 % infusion 20 mL/hr intravenous Once Denilson Brammell, DO sodium chloride flush 10 mL 10 mL intravenous PRN Huey Hurtado MD spironolactone (ALDACTONE) tablet 12.5 mg 12.5 mg oral Daily Hill Boo MD 12.5 mg at 12/12/24 0840 tamsulosin (FLOMAX) capsule 0.4 mg 0.4 mg oral QPM David Coffman PA-C 0.4 mg at 12/12/24 1606 More meds No current facility-administered medications on file prior to encounter. Current Outpatient Medications on File Prior to Encounter Medication Sig Dispense Refill albuterol 90 mcg/actuation inhaler Inhale 1 puff by mouth every 6 (six) hours as needed for wheezing. ammonium lactate (AMLACTIN) 12 % cream Apply 1 g topically as needed for dry skin. aspirin 81 MG chewable tablet Take 1 tablet (81 mg total) by mouth daily. atorvastatin (LIPITOR) 20 MG tablet Take 1 tablet (20 mg total) by mouth nightly. bisoprolol (ZEBETA) 10 MG tablet Take 1 tablet (10 mg total) by mouth 2 (two) times daily. cholecalciferol (VITAMIN D3) 125 mcg (5,000 unit) tablet Take 2 tablets (10,000 Units total) by mouth daily. clopidogreL (PLAVIX) 75 mg tablet Take 1 tablet (75 mg total) by mouth daily Look-alike/Sound-alike medication. colestipoL (COLESTID) 1 gram tablet Take 2 tablets (2 g total) by mouth daily. dicyclomine (BENTYL) 10 MG capsule Take 1 capsule (10 mg total) by mouth 2 (two) times daily. furosemide (LASIX) 40 MG tablet Take 1 tablet (40 mg total) by mouth 2 (two) times daily. HYDROcodone-acetaminophen (NORCO) 10-325 mg per tablet Take 1 tablet by mouth every 6 (six) hours as needed for pain. Max Daily Amount: 4 tablets hydrOXYzine pamoate (VISTARIL) 50 MG capsule Take 1 capsule (50 mg total) by mouth every night as needed for itching (sleep) Look-alike/Sound-alike medication. insulin aspart U-100 (NovoLOG) 100 unit/mL (3 mL) inpn Inject under the skin 4 (four) times daily before meals and nightly. Problem list and diagnosis Patient Active Problem List Diagnosis Anasarca Melena 1. Melena Case request operating room: ESOPHAGOGASTRODUODENOSCOPY (EGD) Case request operating room: ESOPHAGOGASTRODUODENOSCOPY (EGD) Lactate dehydrogenase (LDH), body fluid Lactate dehydrogenase (LDH), body fluid Body fluid cell count with differential Body fluid cell count with differential Body Fluid Culture + Gram Stain Body Fluid Culture + Gram Stain Anaerobic Culture Anaerobic Culture Fungus Culture W/ROSA MARIA Or Nimisha Ink Fungus Culture W/ROSA MARIA Or Nimisha Ink AFB Culture And Stain AFB Culture And Stain [facility] Non-Optometric Assistant Cytology [facility] Non-Optometric Assistant Cytology DIFFERENTIAL, BODY FLUID DIFFERENTIAL, BODY FLUID Body Fluid/CSF - Path Review () Body Fluid/CSF - Path Review () [facility] BONE MARROW SMEAR, ASPIRATION, AND STAIN [facility] BONE MARROW SMEAR, ASPIRATION, AND STAIN CANCELED: Glucose Body Fluid(SENDOUT) CANCELED: Glucose Body Fluid(SENDOUT) CANCELED: Total Protein, Body Fluid(SENDOUT) CANCELED: Total Protein, Body Fluid(SENDOUT) 2. Anasarca gabapentin (NEURONTIN) capsule 100 mg bumetanide (BUMEX) injection 1 mg Past Medical History: Past Medical History: Diagnosis Date Cirrhosis, non-alcoholic (HCC) Diabetes mellitus (HCC) Hypertension Past Surgical History: Past Surgical History: Procedure Laterality Date ESOPHAGOGASTRODUODENOSCOPY (EGD),REMOVAL FOREIGN BODY N/A 12/01/2024 Procedure: EGD, WITH FOREIGN BODY REMOVAL; Surgeon: Scott Daley MD; [facility]; Service: Gastroenterology; Laterality: N/A; Allergies: No Known Allergies Social History: Tobacco Use Smoking status: Never Passive exposure: Never Smokeless tobacco: Never Substance Use Topics Alcohol use: Never Drug use: Never Marital Status: Family History: No family history on file. Review of Systems: Constitutional: Negative except as documented in history of present illness. Eye: Negative except as documented in history of present illness. Ear/Nose/Mouth/Throat: Negative except as documented in history of present illness. Respiratory: Negative except as documented in history of present illness. Cardiovascular: Negative except as documented in history of present illness. Gastrointestinal: Negative except as documented in history of present illness. Genitourinary: Negative except as documented in history of present illness. Hematology/Lymphatics: Negative except as documented in history of present illness. Endocrine: Negative except as documented in history of present illness. Immunologic: Negative except as documented in history of present illness. Musculoskeletal: Negative except as documented in history of present illness. Integumentary: Negative except as documented in history of present illness. Neurologic: Negative except as documented in history of present illness. Psychiatric: Negative except as documented in history of present illness. Physical Exam: Blood pressure (!) 155/68, pulse 77, temperature 98.6 ??F (37 ??C), temperature source Axillary, resp. rate 21, height 1.676 m (5' 6 ), weight 87.4 kg (192 lb 11.2 oz), SpO2 98%. General: Alert and oriented. Ill-appearing Eye: Pupils are equal, round and reactive to light. HENT: Normocephalic. Neck: Supple, Non-tender, No carotid bruit, No jugular venous distention. Respiratory: Decreased breath sound bilateral, Respirations are non-labored. Cardiovascular: regular rhythm, No murmur Gastrointestinal: Soft, Non-tender, slightly distended, Normal bowel sounds. Musculoskeletal: Normal range of motion. Integumentary: Warm, Dry, [place]. Neurologic: No obvious focal deficit Psychiatric: Cooperative, Appropriate mood & affect. Labs, Imaging, and Other Studies: Echo Results (last 7 days) Procedure Component Value Units Date/Time ECHO COMPLETE (DOPPLER / COLOR) W OR WO CONTRAST [[id number]] Collected: 11/30/24 0725 Order Status: Completed Updated: 11/30/24 1046 Narrative: TRANSTHORACIC ECHOCARDIOGRAPHY REPORT Demographics Patient Name: RIN JONES : 1960 Age: 64 year(s) Corporate ID Number: [id number] Gender Female Container Repairer: Giovanna Rock Height: 67 inches [facility] Referring Physician: HUEY HURTADO Weight: 225 pounds Interpreting JESSICA RAYMOND MD BMI: 35.24 kg/m^2 Physician: Date of Service: 11/30/2024 Blood Pressure: 118/59 mmHg Room Number: 579 Type of Study: TTE procedure: ECHO COMPLETE (DOPPLER / COLOR) W OR WO CONTRAST. Patient Status: Routine IP [facility] History/Tech Notes: Indication: shortness of breath R06.02 Impression: ######################################## Normal sized left ventricle. Normal left ventricular wall thickness. Visually estimated ejection fraction 55% +/- 5%. Borderline systolic strain pattern. Increased left atrial pressure (Grade II diastolic dysfunction). Sclerotic aortic valve leaflets. Trivial pericardial effusion measuring 0.3cm. posteriorly. ######################################## Measurements Summary: LVEDd: 5.33 cm LVESd: 3.64 cm IVSEd: 0.88 cm AO Root:2.7 cm LVPWd: 0.87 cm Contractility Score Normal Left Ventricular contractility was noted. LV regional wall motion: (0-Not visualized 1-Normal 2-Hypokinesis 3-Akinesis 4-Dyskinesis 5-Aneurysm) Left Ventricle Peak E-wave: 1.31 Peak A-wave: 1.35 m/s E/A ratio: 0.97 m/s Volume [id number] LV length: 8.51 cm ml Volume .96 ml LVOT diameter: 1.79 cm Normal sized left ventricle. Normal left ventricular wall thickness. Visually estimated ejection fraction 55% +/- 5%. Borderline systolic strain pattern. Increased left atrial pressure (Grade II diastolic dysfunction). No left ventricular masses or thrombi. Right Ventricle Diastolic dimension: 3.92 RV systolic pressure: 28.12 mmHg cm Normal sized right ventricle. Normal TAPSE c/w normal right ventricular function Left Atrium LA dimension: 4 cm LA volume:83.13 ml LA/Aorta: 1.48 Abnormal left atrial volume index 39 ml/m^2. Intact atrial septum. No atrial mass or thrombus. Right Atrium Normal sized right atrium. Intact atrial septum. No atrial mass or thrombus. Mitral Valve Deceleration time: 261.56 msec Thickened mitral valve leaflets. Mild (1+) mitral regurgitation. No mitral stenosis. No masses or vegetations seen. Aortic Valve AV VTI: 53.02 Area continuity: 1.13 Peak velocity: 2.38 m/s cm cm^2 Peak gradient: 22.63 LVOT VTI: 23.85 Mean velocity: 1.76 mmHg cm m/s Mean gradient: 13.56 mmHg Sclerotic aortic valve leaflets. Mildly thickend free edges of the aortic valve leaflets. No aortic regurgitation. No aortic stenosis. No masses or vegetations seen. Tricuspid Valve TR velocity: 2.51 m/s TR gradient: 25.06247 mmHg Estimated RAP: 3 mmHg RVSP: 28.12 mmHg Structurally normal tricuspid valve. Trace tricuspid valve regurgitation. No tricuspid stenosis. No masses or vegetations seen. Pulmonic Valve Acceleration time: 110.37 msec PASP: 28.12 mmHg Structurally normal pulmonic valve. Trace pulmonary valve regurgitation. No pulmonic stenosis. No masses or vegetations seen. Great Vessels Aorta Aortic Root: 2.7 cm LVOT Diameter: 1.79 cm Visualized thoracic aorta is normal. Normal aortic root. No evidence of dissection. Normal IVC with appropriate collapse. Pericardium / Pleura Trivial pericardial effusion measuring 0.3cm. posteriorly. Other Ascites noted in subcostal imaging. Sodium Date Value Ref Range Status 12/13/2024 147 (H) 136 - 145 meq/L Final Potassium Date Value Ref Range Status 12/13/2024 3.5 3.4 - 5.1 meq/L Final Chloride Date Value Ref Range Status 12/13/2024 110 98 - 112 meq/L Final CO2 Date Value Ref Range Status 12/13/2024 27 22 - 29 meq/L Final BUN Date Value Ref Range Status 12/13/2024 71.9 (H) 9.8 - 20.1 mg/dL Final Creatinine Date Value Ref Range Status 12/13/2024 2.29 (H) 0.57 - 1.11 mg/dL Final eGFR (mL/min/1.73m2) Date Value Ref Range Status 12/13/2024 24 (L) >=60 mL/min/1.73m2 Final Calcium Date Value Ref Range Status 12/13/2024 8.5 8.4 - 10.2 mg/dL Final WBC Date Value Ref Range Status 12/13/2024 1.4 (LL) 4.0 - 10.0 K/??L Final 12/12/2024 1.4 (LL) 4.0 - 10.0 K/??L Final 12/11/2024 1.7 (LL) 4.0 - 10.0 K/??L Final RBC Date Value Ref Range Status 12/13/2024 2.42 (L) 3.93 - 5.22 M/??L Final 12/12/2024 2.39 (L) 3.93 - 5.22 M/??L Final 12/11/2024 2.50 (L) 3.93 - 5.22 M/??L Final Hemoglobin Date Value Ref Range Status 12/13/2024 7.4 (L) 11.2 - 15.7 GM/DL Final 12/12/2024 7.3 (L) 11.2 - 15.7 GM/DL Final 12/11/2024 7.7 (L) 11.2 - 15.7 GM/DL Final Hematocrit Date Value Ref Range Status 12/13/2024 23.4 (L) 34.1 - 44.9 % Final 12/12/2024 23.2 (L) 34.1 - 44.9 % Final 12/11/2024 24.4 (L) 34.1 - 44.9 % Final Platelets Date Value Ref Range Status 12/13/2024 52 (L) 140 - 375 K/CU MM Final 12/12/2024 43 (L) 140 - 375 K/CU MM Final 12/11/2024 50 (L) 140 - 375 K/CU MM Final No results found for: TSH , MAGNESIUM .[facility] Lab Results Component Value Date K 3.5 12/13/2024 Lab Results Component Value Date CREATININE 2.29 (H) 12/13/2024 No results found for: TSH No results found for: MAGNESIUM AST Date Value Ref Range Status 12/13/2024 42 (H) 11 - 34 U/L Final Comment: AST2 reagent used for testing does not contain P5P supplementation and therefore may miss AST elevations in patients with B6 deficiency. This population may be as high as 10% in the [place], with risk factors including malabsorption, drug interactions, and alcoholic hepatitis. ALT Date Value Ref Range Status 12/13/2024 16 <=34 U/L Final Comment: ALT2 reagent used for testing does not contain P5P supplementation and therefore may miss ALT elevations in patients with B6 deficiency. This population may be as high as 10% in the [place], with risk factors including malabsorption, drug interactions, and alcoholic hepatitis. Echo Results (last 7 days) Procedure Component Value Units Date/Time ECHO COMPLETE (DOPPLER / COLOR) W OR WO CONTRAST [[id number]] Collected: 11/30/24724 Order Status: Completed Updated: 11/30/24 104 Narrative: TRANSTHORACIC ECHOCARDIOGRAPHY REPORT Demographics Patient Name: RIN JONES : 1960 Age: 64 year(s) Corporate ID Number: [id number] Gender Female Container Repairer: Giovanna Rock Height: 67 inches [facility] Referring Physician: HUEY HURTADO Weight: 225 pounds Interpreting JESSICA RAYMOND MD BMI: 35.24 kg/m^2 Physician: Date of Service: 11/30/2024 Blood Pressure: 118/59 mmHg Room Number: 579 Type of Study: TTE procedure: ECHO COMPLETE (DOPPLER / COLOR) W OR WO CONTRAST. Patient Status: Routine IP [facility] History/Tech Notes: Indication: shortness of breath R06.02 Impression: ######################################## Normal sized left ventricle. Normal left ventricular wall thickness. Visually estimated ejection fraction 55% +/- 5%. Borderline systolic strain pattern. Increased left atrial pressure (Grade II diastolic dysfunction). Sclerotic aortic valve leaflets. Trivial pericardial effusion measuring 0.3cm. posteriorly. ######################################## Measurements Summary: LVEDd: 5.33 cm LVESd: 3.64 cm IVSEd: 0.88 cm AO Root:2.7 cm LVPWd: 0.87 cm Contractility Score Normal Left Ventricular contractility was noted. LV regional wall motion: (0-Not visualized 1-Normal 2-Hypokinesis 3-Akinesis 4-Dyskinesis 5-Aneurysm) Left Ventricle Peak E-wave: 1.31 Peak A-wave: 1.35 m/s E/A ratio: 0.97 m/s Volume [id number] LV length: 8.51 cm ml Volume [id number] ml LVOT diameter: 1.79 cm Normal sized left ventricle. Normal left ventricular wall thickness. Visually estimated ejection fraction 55% +/- 5%. Borderline systolic strain pattern. Increased left atrial pressure (Grade II diastolic dysfunction). No left ventricular masses or thrombi. Right Ventricle Diastolic dimension: 3.92 RV systolic pressure: 28.12 mmHg cm Normal sized right ventricle. Normal TAPSE c/w normal right ventricular function Left Atrium LA dimension: 4 cm LA volume:83.13 ml LA/Aorta: 1.48 Abnormal left atrial volume index 39 ml/m^2. Intact atrial septum. No atrial mass or thrombus. Right Atrium Normal sized right atrium. Intact atrial septum. No atrial mass or thrombus. Mitral Valve Deceleration time: 261.56 msec Thickened mitral valve leaflets. Mild (1+) mitral regurgitation. No mitral stenosis. No masses or vegetations seen. Aortic Valve AV VTI: 53.02 Area continuity: 1.13 Peak velocity: 2.38 m/s cm cm^2 Peak gradient: 22.63 LVOT VTI: 23.85 Mean velocity: 1.76 mmHg cm m/s Mean gradient: 13.56 mmHg Sclerotic aortic valve leaflets. Mildly thickend free edges of the aortic valve leaflets. No aortic regurgitation. No aortic stenosis. No masses or vegetations seen. Tricuspid Valve TR velocity: 2.51 m/s TR gradient: 25.14871 mmHg Estimated RAP: 3 mmHg RVSP: 28.12 mmHg Structurally normal tricuspid valve. Trace tricuspid valve regurgitation. No tricuspid stenosis. No masses or vegetations seen. Pulmonic Valve Acceleration time: 110.37 msec PASP: 28.12 mmHg Structurally normal pulmonic valve. Trace pulmonary valve regurgitation. No pulmonic stenosis. No masses or vegetations seen. Great Vessels Aorta Aortic Root: 2.7 cm LVOT Diameter: 1.79 cm Visualized thoracic aorta is normal. Normal aortic root. No evidence of dissection. Normal IVC with appropriate collapse. Pericardium / Pleura Trivial pericardial effusion measuring 0.3cm. posteriorly. Other Ascites noted in subcostal imaging. Assessment and Plan: *Paroxysmal Atrial Fib [id number] of 3 to 4 also have some wide-complex tachycardia aberrancy versus nonsustained VT longest about 10 beats echocardiogram showed normal EF in November 2024 patient seemsasymptomatic *Non-alcoholic Liver Cirrhosis decompensated with ascites status post paracentesis 6 L removed on 11/30/2024 also underwent an EGD that shows duodenal ulcer but no evidence of active bleeding *CAD *Diabetes mellitus *HTN *HLD *pancytopenia *GERMÁN current GFR 15. Plan: 12/13/2024 Labs and telemetry reviewed. Continue current loading with amiodarone. White blood count down quitea bit. Slight improvement in GFR 12/12/2024 Labs and telemetry reviewed, sinus rhythm has runs of non sustained AT. Patient has liver cirrhosisshe is on amio will check liver enzymes. 12/10/2024 Labs and telemetry reviewed. Patient has nonsustained PAC however there is no A- fib. Will check liver enzymes and magnesium. 12/08/2024 Labs and telemetry reviewed. Kidney function remains quite impaired. Patient cannot take anticoagulation for A-fib despite [id number] because of multiple issue including GI bleeding pancytopenia due to arthritis of bleeding. 12/07/2024 Labs and telemetry reviewed. Patient maintained sinus rhythm. Keep amiodarone 200 mg twice a day for 1 month then 200 mg daily. 12/06/2024 Labs and telemetry reviewed. No arrhythmia overnight. Continue amiodarone loading. 12/05/2024 Labs and telemetry reviewed. Patient remains in sinus rhythm. Stop IV amiodarone. Transfer on the floor. Continue p.o. amiodarone 12/04/2024 Labs and telemetry reviewed. Patient had no arrhythmia overnight. Antiarrhythmic logan we are limited with kidney failure. Will do low-dose of amiodarone for now g even though she has some liver failure. Will use low-dose and monitor liver enzymes. 12/03/2024 Labs and telemetry reviewed. Keep electrolytes within normal limit. Patient received a bolus of amiodarone that converted her. If further arrhythmia can always do bolus drip of amiodarone however concern is due to liver function. Further recommendations pending testing results, clinical course, and response to therapy. * KENNEY Zaragoza - 12/13/2024 8:25 AM EDTSummary: MAN[facility] Updates [facility] Progress Note Case Management received call from Vesna Gibson (phone # [phone]) compliance coordinator with [facility] requesting notes from weekend. MANGO faxed weekend notes via Careport to Ez Gibson to fax # [phone]. Patient will require a precert if a bed is offered. Update, 12/13, 3:07 pm Patient and family's first choice, [facility] due to not being able to meet and accommodate patient's clinical needs. No information regarding how. Update 3:45 pm - Per facility's admission senior account manager, patient is requiring BiPaP 'too much' (/ per facility words), requiring a paracentesis too often, no activity tolerance, therefore patient is not rehab appropriate. MANGO asked [facility] to review referral to inquire about potential barriers to SNF/rehab. Perrep, a clarification on what the rehab center cannot meet will be needed. Last therapy note, patient ambulated 60', 100', 140' and likely insurance will not approve for acute rehab and diagnosis and f unctionality. PT/OT has last seen patient on 12/10, updated notes would be needed for precert if patient was to go to a SNF for discharge planning regardless. PT/OT would need to clarify in notes home with home health vs rehab and why it's needed/appropriate DC plan for insurance purposes. CM has updated treatment team via [employer] chat that are signed into patient's chart on 12/13 - QUIQUE, bedside RN, bedside INCLUSION TEACHER, PT, and OT. Patient has other offers from the following: [facility] and [facility] [place], [place]; offered bed prior to [facility]; follow up with [facility] via [place], [place] KENNEY Zaragoza * Norm Cameron MD - 12/12/2024 8:47 PM EDT EP progress note Patient Name: Mary Coronel Admission Date: 11/30/2024 Primary Care Provider: JACKIE Find-a[facility] Chief Complaint/Reason for Consult: No chief complaint on file. History of Present Illness: Mary Coronel is a 64 y.o. female, admitted on: 11/30/2024 1:43 AM. presented to [facility] with swollen abdomen, abdominal discomfort and bilateral lower extremity pitting edema. Patient's BUN/creatinine elevated, and patient subsequently transferred to [facility] for hepatorenal syndrome evaluation. Admits to 4 weeks of progressive SOB, FUNK, orthopnea, lower extremit y swelling, abdominal swelling, ataxia issues. States beforementioned symptoms have gotten worse over past week. Also states she has gained 16 pounds over past week. Admitts to chronic RUQ, diffuse abdominal discomfort which is worsened over past week. Reports decreased urine output x 7 days. Pt was admitted with nonalcoholic liver cirrhosis with ascites and underwent paracentesis on 11/30 with 6L removed. EGD revealed a duodenal ulcer and small varices. While on telemetry, pt is having some afib and brief runs of NSVT. Asymptomatic. BP stable. EP consulted for evaluation and management. Medications: Prior to Admission Medications: Medications Prior to Admission Medication Sig Dispense Refill Last Dose/Taking albuterol 90 mcg/actuation inhaler Inhale 1 puff by mouth every 6 (six) hours as needed for wheezing. ammonium lactate (AMLACTIN) 12 % cream Apply 1 g topically as needed for dry skin. aspirin 81 MG chewable tablet Take 1 tablet (81 mg total) by mouth daily. atorvastatin (LIPITOR) 20 MG tablet Take 1 tablet (20 mg total) by mouth nightly. bisoprolol (ZEBETA) 10 MG tablet Take 1 tablet (10 mg total) by mouth 2 (two) times daily. cholecalciferol (VITAMIN D3) 125 mcg (5,000 unit) tablet Take 2 tablets (10,000 Units total) by mouth daily. clopidogreL (PLAVIX) 75 mg tablet Take 1 tablet (75 mg total) by mouth daily Look-alike/Sound-alike medication. colestipoL (COLESTID) 1 gram tablet Take 2 tablets (2 g total) by mouth daily. dicyclomine (BENTYL) 10 MG capsule Take 1 capsule (10 mg total) by mouth 2 (two) times daily. furosemide (LASIX) 40 MG tablet Take 1 tablet (40 mg total) by mouth 2 (two) times daily. HYDROcodone-acetaminophen (NORCO) 10-325 mg per tablet Take 1 tablet by mouth every 6 (six) hours as needed for pain. Max Daily Amount: 4 tablets hydrOXYzine pamoate (VISTARIL) 50 MG capsule Take 1 capsule (50 mg total) by mouth every night as needed for itching (sleep) Look-alike/Sound-alike medication. insulin aspart U-100 (NovoLOG) 100 unit/mL (3 mL) inpn Inject under the skin 4 (four) times daily before meals and nightly. [DISCONTINUED] gabapentin (NEURONTIN) 800 MG tablet Take 1 tablet (800 mg total) by mouth 3 (three)times daily. Max Daily Amount: 2,400 mg [DISCONTINUED] lisinopriL (ZESTRIL) 10 MG tablet Take 1 tablet (10 mg total) by mouth 2 (two) timesdaily. [DISCONTINUED] metFORMIN (GLUCOPHAGE) 1000 MG tablet Take 1 tablet (1,000 mg total) by mouth 2 (two) times daily with breakfast and dinner Look-alike/Sound-alike medication. [DISCONTINUED] tirzepatide 7.5 mg/0.5 mL pnij Inject 7.5 mg under the skin every 7 days. [DISCONTINUED] triamcinolone (KENALOG) 0.1 % topical cream Apply 0.1 Applications topically daily to affected area.. Scheduled Medications: amiodarone 200 mg oral Daily 200 mg at 12/12/24 0840 atorvastatin 20 mg oral Every Night 20 mg at 12/11/242017 bumetanide 2 mg oral BID 2 mg at 12/12/24 0839 ergocalciferol 50,000 Units oral Q7 Days 50,000 Units at 12/07/24 1446 gabapentin 100 mg oral TID 100 mg at 12/12/24 1515 insulin lispro 0-18 Units subcutaneous 4x Daily AC 3 Units at 12/12/24 1609 lactulose 10 g oral BID 10 g at 12/12/24 0840 metOLazone 2.5 mg oral Daily 2.5 mg at 12/12/24 0858 pantoprazole 40 mg oral BID 40 mg at 12/12/24 0840 rifAXIMin 550 mg oral BID 550 mg at 12/12/24 0840 spironolactone 12.5 mg oral Daily 12.5 mg at 12/12/24 0840 tamsulosin 0.4 mg oral QPM 0.4 mg at 12/12/24 1606 Current Infusions: Current Facility-Administered Medications Medication Dose Route Frequency Provider Last Rate Last Admin acetaminophen (TYLENOL) tablet 500 mg 500 mg oral Q4H PRN Huey Hurtado MD 500 mg at 12/10/24 0026 albuterol 2.5 mg /3 mL (0.083 %) nebulizer solution 2.5 mg 2.5 mg nebulization Q6H PRN Albert Garcia MD amiodarone (PACERONE) tablet 200 mg 200 mg oral Daily Deysi Foss MD 200 mg at 12/12/24 0840 ammonium lactate (LAC-HYDRIN) lotion 12% topical PRN Huey Hurtado MD atorvastatin (LIPITOR) tablet 20 mg 20 mg oral Every Night Huey Hurtado MD 20 mg at 12/11/24 2018 benzocaine-menthoL (CEPACOL) lozenge 1 lozenge 1 lozenge buccal Q2H PRN Timothy Bai MD bumetanide (BUMEX) tablet 2 mg 2 mg oral BID Hema Cervantes MD 2 mg at 12/12/24 0839 dextrose 50% (D50W) injection 25 g 25 g intravenous Q15 Min PRN Huey Hurtado MD ergocalciferol (DRISDOL) capsule 50,000 Units 50,000 Units oral Q7 Days Timothy Bai MD 50,000 Units at 12/07/24 1446 gabapentin (NEURONTIN) capsule 100 mg 100 mg oral TID Blanka Malagon MD 100 mg at 12/12/24 1515 glucagon injection 1 mg 1 mg intraMUSCULAR Q15 Min PRN Huey Hurtado MD glucose chew tab 16 g 16 g oral Q15 Min PRN Huey Hurtado MD hydrALAZINE (APRESOLINE) injection 10 mg 10 mg intravenous Q6H PRN Huey Hurtado MD 10 mg at 431 insulin lispro (HUMALOG, ADMELOG) injection 0-18 Units 0-18 Units subcutaneous 4x Daily AC Huey Hurtado MD 3 Units at 12/12/24 1609 lactulose (CHRONULAC) 10 gram/15 mL solution 10 g 10 g oral BID Timothy Bai MD 10 g at 12/12/24 0840 [Held by provider] melatonin tablet 3 mg 3 mg oral Every Night PRN Huey Hurtado MD metOLazone (ZAROXOLYN) tablet 2.5 mg 2.5 mg oral Daily Hema Cervantes MD 2.5 mg at 12/12/24 0858 ondansetron (ZOFRAN-ODT) disintegrating tablet 4 mg 4 mg oral Q8H PRN Huey Hurtado MD Or ondansetron (ZOFRAN) injection 4 mg 4 mg intravenous Q8H PRN Huey Hurtado MD 4 mg at 12/08/24 1140 oxyCODONE (ROXICODONE) immediate release tablet 5 mg 5 mg oral Q4H PRN Mary Carmen Mcfadden MD 5 mg at 12/08/24 1613 pantoprazole (PROTONIX) EC tablet 40 mg 40 mg oral BID Mary Carmen Mcfadden MD 40 mg at 12/12/24 0840 prochlorperazine (COMPAZINE) injection 10 mg 10 mg intravenous Q6H PRN Huey Hurtado MD rifAXIMin (XIFAXAN) tablet 550 mg 550 mg oral BID Destiney Llanes APRN 550 mg at 12/12/24 0840 sodium chloride 0.9 % infusion 20 mL/hr intravenous Once Denilson Hodgson DO sodium chloride flush 10 mL 10 mL intravenous PRN Huey Hurtado MD spironolactone (ALDACTONE) tablet 12.5 mg 12.5 mg oral Daily Hill oBo MD 12.5 mg at 12/12/24 0840 tamsulosin (FLOMAX) capsule 0.4 mg 0.4 mg oral QPM David Coffman PA-C 0.4 mg at 12/12/24 1606 More meds No current facility-administered medications on file prior to encounter. Current Outpatient Medications on File Prior to Encounter Medication Sig Dispense Refill albuterol 90 mcg/actuation inhaler Inhale 1 puff by mouth every 6 (six) hours as needed for wheezing. ammonium lactate (AMLACTIN) 12 % cream Apply 1 g topically as needed for dry skin. aspirin 81 MG chewable tablet Take 1 tablet (81 mg total) by mouth daily. atorvastatin (LIPITOR) 20 MG tablet Take 1 tablet (20 mg total) by mouth nightly. bisoprolol (ZEBETA) 10 MG tablet Take 1 tablet (10 mg total) by mouth 2 (two) times daily. cholecalciferol (VITAMIN D3) 125 mcg (5,000 unit) tablet Take 2 tablets (10,000 Units total) by mouth daily. clopidogreL (PLAVIX) 75 mg tablet Take 1 tablet (75 mg total) by mouth daily Look-alike/Sound-alike medication. colestipoL (COLESTID) 1 gram tablet Take 2 tablets (2 g total) by mouth daily. dicyclomine (BENTYL) 10 MG capsule Take 1 capsule (10 mg total) by mouth 2 (two) times daily. furosemide (LASIX) 40 MG tablet Take 1 tablet (40 mg total) by mouth 2 (two) times daily. HYDROcodone-acetaminophen (NORCO) 10-325 mg per tablet Take 1 tablet by mouth every 6 (six) hours as needed for pain. Max Daily Amount: 4 tablets hydrOXYzine pamoate (VISTARIL) 50 MG capsule Take 1 capsule (50 mg total) by mouth every night as needed for itching (sleep) Look-alike/Sound-alike medication. insulin aspart U-100 (NovoLOG) 100 unit/mL (3 mL) inpn Inject under the skin 4 (four) times daily before meals and nightly. Problem list and diagnosis Patient Active Problem List Diagnosis Anasarca Melena 1. Melena Case request operating room: ESOPHAGOGASTRODUODENOSCOPY (EGD) Case request operating room: ESOPHAGOGASTRODUODENOSCOPY (EGD) Lactate dehydrogenase (LDH), body fluid Lactate dehydrogenase (LDH), body fluid Body fluid cell count with differential Body fluid cell count with differential Body Fluid Culture + Gram Stain Body Fluid Culture + Gram Stain Anaerobic Culture Anaerobic Culture Fungus Culture W/ROSA MARIA Or Nimisha Ink Fungus Culture W/ROSA MARIA Or Nimisha Ink AFB Culture And Stain AFB Culture And Stain [facility] Non-Optometric Assistant Cytology [facility] Non-Optometric Assistant Cytology DIFFERENTIAL, BODY FLUID DIFFERENTIAL, BODY FLUID Body Fluid/CSF - Path Review () Body Fluid/CSF - Path Review () [facility] BONE MARROW SMEAR, ASPIRATION, AND STAIN [facility] BONE MARROW SMEAR, ASPIRATION, AND STAIN CANCELED: Glucose Body Fluid(SENDOUT) CANCELED: Glucose Body Fluid(SENDOUT) CANCELED: Total Protein, Body Fluid(SENDOUT) CANCELED: Total Protein, Body Fluid(SENDOUT) 2. Anasarca gabapentin (NEURONTIN) capsule 100 mg bumetanide (BUMEX) injection 1 mg Past Medical History: Past Medical History: Diagnosis Date Cirrhosis, non-alcoholic (HCC) Diabetes mellitus (HCC) Hypertension Past Surgical History: Past Surgical History: Procedure Laterality Date ESOPHAGOGASTRODUODENOSCOPY (EGD),REMOVAL FOREIGN BODY N/A 12/01/2024 Procedure: EGD, WITH FOREIGN BODY REMOVAL; Surgeon: Scott Daley MD; [facility]; Service: Gastroenterology; Laterality: N/A; Allergies: No Known Allergies Social History: Tobacco Use Smoking status: Never Passive exposure: Never Smokeless tobacco: Never Substance Use Topics Alcohol use: Never Drug use: Never Marital Status: Family History: No family history on file. Review of Systems: Constitutional: Negative except as documented in history of present illness. Eye: Negative except as documented in history of present illness. Ear/Nose/Mouth/Throat: Negative except as documented in history of present illness. Respiratory: Negative except as documented in history of present illness. Cardiovascular: Negative except as documented in history of present illness. Gastrointestinal: Negative except as documented in history of present illness. Genitourinary: Negative except as documented in history of present illness. Hematology/Lymphatics: Negative except as documented in history of present illness. Endocrine: Negative except as documented in history of present illness. Immunologic: Negative except as documented in history of present illness. Musculoskeletal: Negative except as documented in history of present illness. Integumentary: Negative except as documented in history of present illness. Neurologic: Negative except as documented in history of present illness. Psychiatric: Negative except as documented in history of present illness. Physical Exam: Blood pressure 139/66, pulse 84, temperature 98.1 ??F (36.7 ??C), temperature source Oral, resp. rate 16, height 1.676 m (5' 6 ), weight 97.6 kg (215 lb 3.8 oz), SpO2 99%. General: Alert and oriented. Ill-appearing Eye: Pupils are equal, round and reactive to light. HENT: Normocephalic. Neck: Supple, Non-tender, No carotid bruit, No jugular venous distention. Respiratory: Decreased breath sound bilateral, Respirations are non-labored. Cardiovascular: regular rhythm, No murmur Gastrointestinal: Soft, Non-tender, slightly distended, Normal bowel sounds. Musculoskeletal: Normal range of motion. Integumentary: Warm, Dry, [place]. Neurologic: No obvious focal deficit Psychiatric: Cooperative, Appropriate mood & affect. Labs, Imaging, and Other Studies: Echo Results (last 7 days) Procedure Component Value Units Date/Time ECHO COMPLETE (DOPPLER / COLOR) W OR WO CONTRAST [[id number]] Collected: 11/30/24724 Order Status: Completed Updated: 11/30/24 1046 Narrative: TRANSTHORACIC ECHOCARDIOGRAPHY REPORT Demographics Patient Name: RIN JONES : 1960 Age: 64 year(s) Corporate ID Number: [id number] Gender Female Container Repairer: Giovanna Rock Height: 67 inches [facility] Referring Physician: HUEY HURTADO Weight: 225 pounds Interpreting JESSICA RAYMOND MD BMI: 35.24 kg/m^2 Physician: Date of Service: 11/30/2024 Blood Pressure: 118/59 mmHg Room Number: 579 Type of Study: TTE procedure: ECHO COMPLETE (DOPPLER / COLOR) W OR WO CONTRAST. Patient Status: Routine IP Study Location: [facility] Quality: Adequate visualization History/Tech Notes: Indication: shortness of breath R06.02 Impression: ######################################## Normal sized left ventricle. Normal left ventricular wall thickness. Visually estimated ejection fraction 55% +/- 5%. Borderline systolic strain pattern. Increased left atrial pressure (Grade II diastolic dysfunction). Sclerotic aortic valve leaflets. Trivial pericardial effusion measuring 0.3cm. posteriorly. ######################################## Measurements Summary: LVEDd: 5.33 cm LVESd: 3.64 cm IVSEd: 0.88 cm AO Root:2.7 cm LVPWd: 0.87 cm Contractility Score Normal Left Ventricular contractility was noted. LV regional wall motion: (0-Not visualized 1-Normal 2-Hypokinesis 3-Akinesis 4-Dyskinesis 5-Aneurysm) Left Ventricle Peak E-wave: 1.31 Peak A-wave: 1.35 m/s E/A ratio: 0.97 m/s Volume [id number] LV length: 8.51 cm ml Volume [id number] ml LVOT diameter: 1.79 cm Normal sized left ventricle. Normal left ventricular wall thickness. Visually estimated ejection fraction 55% +/- 5%. Borderline systolic strain pattern. Increased left atrial pressure (Grade II diastolic dysfunction). No left ventricular masses or thrombi. Right Ventricle Diastolic dimension: 3.92 RV systolic pressure: 28.12 mmHg cm Normal sized right ventricle. Normal TAPSE c/w normal right ventricular function Left Atrium LA dimension: 4 cm LA volume:83.13 ml LA/Aorta: 1.48 Abnormal left atrial volume index 39 ml/m^2. Intact atrial septum. No atrial mass or thrombus. Right Atrium Normal sized right atrium. Intact atrial septum. No atrial mass or thrombus. Mitral Valve Deceleration time: 261.56 msec Thickened mitral valve leaflets. Mild (1+) mitral regurgitation. No mitral stenosis. No masses or vegetations seen. Aortic Valve AV VTI: 53.02 Area continuity: 1.13 Peak velocity: 2.38 m/s cm cm^2 Peak gradient: 22.63 LVOT VTI: 23.85 Mean velocity: 1.76 mmHg cm m/s Mean gradient: 13.56 mmHg Sclerotic aortic valve leaflets. Mildly thickend free edges of the aortic valve leaflets. No aortic regurgitation. No aortic stenosis. No masses or vegetations seen. Tricuspid Valve TR velocity: 2.51 m/s TR gradient: 25.23454 mmHg Estimated RAP: 3 mmHg RVSP: 28.12 mmHg Structurally normal tricuspid valve. Trace tricuspid valve regurgitation. No tricuspid stenosis. No masses or vegetations seen. Pulmonic Valve Acceleration time: 110.37 msec PASP: 28.12 mmHg Structurally normal pulmonic valve. Trace pulmonary valve regurgitation. No pulmonic stenosis. No masses or vegetations seen. Great Vessels Aorta Aortic Root: 2.7 cm LVOT Diameter: 1.79 cm Visualized thoracic aorta is normal. Normal aortic root. No evidence of dissection. Normal IVC with appropriate collapse. Pericardium / Pleura Trivial pericardial effusion measuring 0.3cm. posteriorly. Other Ascites noted in subcostal imaging. Sodium Date Value Ref Range Status 12/12/2024 144 136 - 145 meq/L Final Potassium Date Value Ref Range Status 12/12/2024 3.4 3.4 - 5.1 meq/L Final Chloride Date Value Ref Range Status 12/12/2024 110 98 - 112 meq/L Final CO2 Date Value Ref Range Status 12/12/2024 26 22 - 29 meq/L Final BUN Date Value Ref Range Status 12/12/2024 70.7 (H) 9.8 - 20.1 mg/dL Final Creatinine Date Value Ref Range Status 12/12/2024 2.28 (H) 0.57 - 1.11 mg/dL Final eGFR (mL/min/1.73m2) Date Value Ref Range Status 12/12/2024 24 (L) >=60 mL/min/1.73m2 Final Calcium Date Value Ref Range Status 12/12/2024 8.3 (L) 8.4 - 10.2 mg/dL Final WBC Date Value Ref Range Status 12/12/2024 1.4 (LL) 4.0 - 10.0 K/??L Final 12/11/2024 1.7 (LL) 4.0 - 10.0 K/??L Final RBC Date Value Ref Range Status 12/12/2024 2.39 (L) 3.93 - 5.22 M/??L Final 12/11/2024 2.50 (L) 3.93 - 5.22 M/??L Final Hemoglobin Date Value Ref Range Status 12/12/2024 7.3 (L) 11.2 - 15.7 GM/DL Final 12/11/2024 7.7 (L) 11.2 - 15.7 GM/DL Final Hematocrit Date Value Ref Range Status 12/12/2024 23.2 (L) 34.1 - 44.9 % Final 12/11/2024 24.4 (L) 34.1 - 44.9 % Final Platelets Date Value Ref Range Status 12/12/2024 43 (L) 140 - 375 K/CU MM Final 12/11/2024 50 (L) 140 - 375 K/CU MM Final No results found for: TSH , MAGNESIUM .[facility] Lab Results Component Value Date K 3.4 12/12/2024 Lab Results Component Value Date CREATININE 2.28 (H) 12/12/2024 No results found for: TSH No results found for: MAGNESIUM AST Date Value Ref Range Status 12/10/2024 39 (H) 11 - 34 U/L Final Comment: AST2 reagent used for testing does not contain P5P supplementation and therefore may miss AST elevations in patients with B6 deficiency. This population may be as high as 10% in the [place], with risk factors including malabsorption, drug interactions, and alcoholic hepatitis. [facility] has become aware of sulfasalazine and sulfapyridine drug interference in the assays ALT, AST, T4, CKMB, glucose, and ammonia. The probability of misinterpretation of results for the assays is remote and would be limited to scenarios where a patient has taken the drug and had a blood sample drawn before clearance of the drug to a level that does not interfere with laboratory testing. Venipuncture should occur prior to administration of the drug. ALT Date Value Ref Range Status 12/10/2024 12 <=34 U/L Final Comment: ALT2 reagent used for testing does not contain P5P supplementation and therefore may miss ALT elevations in patients with B6 deficiency. This population may be as high as 10% in the [place], with risk factors including malabsorption, drug interactions, and alcoholic hepatitis. Echo Results (last 7 days) Procedure Component Value Units Date/Time ECHO COMPLETE (DOPPLER / COLOR) W OR WO CONTRAST [[id number]] Collected: 11/30/2425 Order Status: Completed Updated: 11/30/24 1046 Narrative: TRANSTHORACIC ECHOCARDIOGRAPHY REPORT Demographics Patient Name: RIN JONES : 1960 Age: 64 year(s) Corporate ID Number: [id number] Gender Female Container Repairer: Giovanna Rock Height: 67 inches [facility] Referring Physician: HUEY HURTADO Weight: 225 pounds Interpreting JESSICA RAYMOND MD BMI: 35.24 kg/m^2 Physician: Date of Service: 11/30/2024 Blood Pressure: 118/59 mmHg Room Number: 579 Type of Study: TTE procedure: ECHO COMPLETE (DOPPLER / COLOR) W OR WO CONTRAST. Patient Status: Routine IP Study Location: [facility] Quality: Adequate visualization History/Tech Notes: Indication: shortness of breath R06.02 Impression: ######################################## Normal sized left ventricle. Normal left ventricular wall thickness. Visually estimated ejection fraction 55% +/- 5%. Borderline systolic strain pattern. Increased left atrial pressure (Grade II diastolic dysfunction). Sclerotic aortic valve leaflets. Trivial pericardial effusion measuring 0.3cm. posteriorly. ######################################## Measurements Summary: LVEDd: 5.33 cm LVESd: 3.64 cm IVSEd: 0.88 cm AO Root:2.7 cm LVPWd: 0.87 cm Contractility Score Normal Left Ventricular contractility was noted. LV regional wall motion: (0-Not visualized 1-Normal 2-Hypokinesis 3-Akinesis 4-Dyskinesis 5-Aneurysm) Left Ventricle Peak E-wave: 1.31 Peak A-wave: 1.35 m/s E/A ratio: 0.97 m/s Volume [id number] LV length: 8.51 cm ml Volume jwqhyfjf56.96 ml LVOT diameter: 1.79 cm Normal sized left ventricle. Normal left ventricular wall thickness. Visually estimated ejection fraction 55% +/- 5%. Borderline systolic strain pattern. Increased left atrial pressure (Grade II diastolic dysfunction). No left ventricular masses or thrombi. Right Ventricle Diastolic dimension: 3.92 RV systolic pressure: 28.12 mmHg cm Normal sized right ventricle. Normal TAPSE c/w normal right ventricular function Left Atrium LA dimension: 4 cm LA volume:83.13 ml LA/Aorta: 1.48 Abnormal left atrial volume index 39 ml/m^2. Intact atrial septum. No atrial mass or thrombus. Right Atrium Normal sized right atrium. Intact atrial septum. No atrial mass or thrombus. Mitral Valve Deceleration time: 261.56 msec Thickened mitral valve leaflets. Mild (1+) mitral regurgitation. No mitral stenosis. No masses or vegetations seen. Aortic Valve AV VTI: 53.02 Area continuity: 1.13 Peak velocity: 2.38 m/s cm cm^2 Peak gradient: 22.63 LVOT VTI: 23.85 Mean velocity: 1.76 mmHg cm m/s Mean gradient: 13.56 mmHg Sclerotic aortic valve leaflets. Mildly thickend free edges of the aortic valve leaflets. No aortic regurgitation. No aortic stenosis. No masses or vegetations seen. Tricuspid Valve TR velocity: 2.51 m/s TR gradient: 25.85904 mmHg Estimated RAP: 3 mmHg RVSP: 28.12 mmHg Structurally normal tricuspid valve. Trace tricuspid valve regurgitation. No tricuspid stenosis. No masses or vegetations seen. Pulmonic Valve Acceleration time: 110.37 msec PASP: 28.12 mmHg Structurally normal pulmonic valve. Trace pulmonary valve regurgitation. No pulmonic stenosis. No masses or vegetations seen. Great Vessels Aorta Aortic Root: 2.7 cm LVOT Diameter: 1.79 cm Visualized thoracic aorta is normal. Normal aortic root. No evidence of dissection. Normal IVC with appropriate collapse. Pericardium / Pleura Trivial pericardial effusion measuring 0.3cm. posteriorly. Other Ascites noted in subcostal imaging. Assessment and Plan: *Paroxysmal Atrial Fib [id number] of 3 to 4 also have some wide-complex tachycardia aberrancy versus nonsustained VT longest about 10 beats echocardiogram showed normal EF in November 2024 patient seemsasymptomatic *Non-alcoholic Liver Cirrhosis decompensated with ascites status post paracentesis 6 L removed on 11/30/2024 also underwent an EGD that shows duodenal ulcer but no evidence of active bleeding *CAD *Diabetes mellitus *HTN *HLD *pancytopenia *GERMÁN current GFR 15. Plan: 12/12/2024 Labs and telemetry reviewed, sinus rhythm has runs of non sustained AT. Patient has liver cirrhosisshe is on amio will check liver enzymes. 12/10/2024 Labs and telemetry reviewed. Patient has nonsustained PAC however there is no A- fib. Will check liver enzymes and magnesium. 12/08/2024 Labs and telemetry reviewed. Kidney function remains quite impaired. Patient cannot take anticoagulation for A-fib despite [id number] because of multiple issue including GI bleeding pancytopenia due to arthritis of bleeding. 12/07/2024 Labs and telemetry reviewed. Patient maintained sinus rhythm. Keep amiodarone 200 mg twice a day for 1 month then 200 mg daily. 12/06/2024 Labs and telemetry reviewed. No arrhythmia overnight. Continue amiodarone loading. 12/05/2024 Labs and telemetry reviewed. Patient remains in sinus rhythm. Stop IV amiodarone. Transfer on the floor. Continue p.o. amiodarone 12/04/2024 Labs and telemetry reviewed. Patient had no arrhythmia overnight. Antiarrhythmic logan we are limited with kidney failure. Will do low-dose of amiodarone for now g even though she has some liver failure. Will use low-dose and monitor liver enzymes. 12/03/2024 Labs and telemetry reviewed. Keep electrolytes within normal limit. Patient received a bolus of amiodarone that converted her. If further arrhythmia can always do bolus drip of amiodarone however concern is due to liver function. Further recommendations pending testing results, clinical course, and response to therapy. * Mary Lou Sidhu RN - 12/12/2024 4:00 PM EDT Weight on a standing scale 194 lb. * Hema Cervantes MD - 12/12/2024 11:32 AM EDT Subjective: Seen and examined at bedside, doing better. No major overnight issues. Will continue metolazone, Bumex and spironolactone for now. Discussed extensively about checking daily standing weights. . Objective: Blood pressure 123/56, pulse 79, temperature 97.2 ??F (36.2 ??C), temperature source Oral, resp. rate 17, height 1.676 m (5' 6 ), weight 97.6 kg (215 lb 3.8 oz), SpO2 97%. Intake/Output Summary (Last 24 hours) at 12/12/2024 1132 Last data filed at 12/12/2024 1000 Gross per 24 hour Intake -- Output 2 ml Net -2 ml 12/11 0700 - 12/12 0659 In: - Out: 1 Physical Exam: General Appearance: NAD Neuro: awake alert, no focal deficit noted Psych: Normal mood and affect, cooperative with exam Eyes: Pupils Equal, no conjunctivitis ENT: OMMM CV: RRR, ++ + edema Lungs: respirations regular and unlabored, symmetrical chest expansion Abdomen: not distended, NTTP Skin: No rash, Warm and dry Labs: Recent Labs Lab(s) Units 12/12/24 0347 12/11/24 0336 12/09/24 0338 WBC K/??L 1.4* 1.7* 2.4* HGB GM/DL 7.3* 7.7* 8.5* PLT K/CU MM 43* 50* 55* Recent Labs Lab(s) Units 12/12/24 0347 12/11/24 0339 12/10/24 0953 12/09/24 0338 12/08/24 0410 12/07/24 0359 12/06/24 0313 NA meq/L 144 146* -- 148* 149* 146* 146* K meq/L 3.4 3.7 -- 3.6 3.6 3.8 3.9 CL meq/L 110 114* -- 116* 116* 118* 116* CO2 meq/L 26 26 -- 23 23 20* 20* BUN mg/dL 70.7* 74.9* -- 77.3* 76.4* 72.9* 63.3* CREATININE mg/dL 2.28* 2.61* -- 2.82* 2.92* 3.13* 3.37* CALCIUM mg/dL 8.3* 8.2* -- 8.7 8.7 8.4 8.6 MG mg/dL -- -- 2.3 -- -- 2.4 2.4 ALBUMIN g/dL -- -- -- -- -- 4.1 4.6 A/P: 1- Anasarca - liver disease and low albumin level plus NSAID for one month 2- GERMÁN on CKD - Unknown baseline - on Lisinopril at home. Third spacing and recently increased doseof diuretics. Pre-renal azotemia - On lisinopril and NSAID and recently increased dose of diureticswith low albumin level vs HRS- Feurea 27% suggestive of pre-renal azotemia SFLC ratio 1.4, JEANA (-) ANCA (-) MPO(-), PR3(-) 4- Pancytopenia -Hematology following - S/p EGD 12/01/24 showing duodenal ulcer and small varices. S/p bone marrow biopsy 5- hx of DM 6- HTN 7- NAFLD 8- Ascites Plan: - Creatinine slightly improving, noted to be less edematous with increasing diuretics ; continue with diuretics- Bumex to 2 mg BID with Aldactone 12.5 mg po daily and metolazone 2.5 mg daily - Monitor I/O strictly. Need to check weight daily on standing scale. - Avoid nephrotoxic agents - no NSAID - Continue to hold Lisinopril and metformin for GERMÁN - Renal diet - Adjust meds per renal function - No emergent need of PHARMACOMETRICIAN - Monitor H/H and transfuse for Hgb less than 7.0 Follow up with NAL in 1-2 weeks with renal function panel Hema Cervantes MD 12/12/24 12:15 PM * David Coffman PA-C - 12/12/2024 11:24 AM EDT [facility] Progress Note Patient: Mary Coronel Subjective Chief Complaint / Reason for Follow-Up Mary Coronel is a 64 y.o. female on hospital day 12. The principal reason for today's follow up visit is Anasarca. Interval History Patient seen and evaluated this morning No acute events overnight Hemodynamics and labs for past 24 hours reviewed Patient thinks that she is doing better. States that her abdomen is less swollen. She has not had any fevers nor chills. She denies any chest pain or discomfort. Denies any coughing wheezing or shortness of air. She is still on nasal cannula oxygen, currently 4 L. She is wearing NIPPV at night. Feels that it does help with her breathing. Still has Blas catheter in place secondary to urine retention. Afebrile. Pancytopenia persists with white count down to 1400, hemoglobin of 7.3 with hematocrit 23.2%, and platelets of 43,000. Renal function shows continued improvement in her BUN down to 70.7 andcreatinine down to 2.28. Sodium potassium bicarb all normal. Glucose mostly in goal range. Review of Systems Complete 12 system review was performed with pertinent positives as above, otherwise negative. Objective Vitals: Temp: [97.2 ??F (36.2 ??C)-98.2 ??F (36.8 ??C)] 97.2 ??F (36.2 ??C) Pulse: [70-84] 79 Resp: [16-24] 17 BP: (117-153)/(53-70) 123/56 FiO2 (%): [35 %] 35 % Intake/Output: Intake/Output Summary (Last 24 hours) at 12/12/2024 1124 Last data filed at 12/12/2024 1000 Gross per 24 hour Intake -- Output 2 ml Net -2 ml Physical exam: Awake, alert, no acute distress. Oriented x 3. Head atraumatic and normocephalic. Neck is supple without lymphadenopathy. Heart regular rate and rhythm without rub murmur or gallop. No JVD. No HJR. Lungs are clear to auscultation bilaterally. No rhonchi, rales, wheezes. No retractions. No accessory muscle use. Abdomen obese, soft, nontender, nondistended. Bowel sounds positive x 4. No rebound or guarding. Extremities 2-3+ bilateral lower extremity edema. No shakes, tremors, seizures. Medications: Scheduled Meds: amiodarone 200 mg oral Daily 200 mg at 12/12/24 0840 atorvastatin 20 mg oral Every Night 20 mg at 12/11/242017 bumetanide 2 mg oral BID 2 mg at 12/12/24 0839 ergocalciferol 50,000 Units oral Q7 Days 50,000 Units at 12/07/24 1446 gabapentin 100 mg oral TID 100 mg at 12/12/24 0840 insulin lispro 0-18 Units subcutaneous 4x Daily AC 3 Units at 12/12/24 0636 lactulose 10 g oral BID 10 g at 12/12/24 0840 metOLazone 2.5 mg oral Daily 2.5 mg at 12/12/24 0858 pantoprazole 40 mg oral BID 40 mg at 12/12/24 0840 rifAXIMin 550 mg oral BID 550 mg at 12/12/24 0840 spironolactone 12.5 mg oral Daily 12.5 mg at 12/12/24 0840 tamsulosin 0.4 mg oral QPM 0.4 mg at 12/11/24 1613 Continuous Infusions: Current Facility-Administered Medications Medication Dose Route Frequency Provider Last Rate Last Admin acetaminophen (TYLENOL) tablet 500 mg 500 mg oral Q4H PRN Huey Hurtado MD 500 mg at 12/10/24 0026 albuterol 2.5 mg /3 mL (0.083 %) nebulizer solution 2.5 mg 2.5 mg nebulization Q6H PRN Albert Garcia MD amiodarone (PACERONE) tablet 200 mg 200 mg oral Daily Deysi Foss MD 200 mg at 12/12/24 0840 ammonium lactate (LAC-HYDRIN) lotion 12% topical PRN Huey Hurtado MD atorvastatin (LIPITOR) tablet 20 mg 20 mg oral Every Night Huey Hurtado MD 20 mg at 12/11/242017 benzocaine-menthoL (CEPACOL) lozenge 1 lozenge 1 lozenge buccal Q2H PRN Timothy Bai MD bumetanide (BUMEX) tablet 2 mg 2 mg oral BID Hema Cervantes MD 2 mg at 12/12/24 0839 dextrose 50% (D50W) injection 25 g 25 g intravenous Q15 Min PRN Huey Hurtado MD ergocalciferol (DRISDOL) capsule 50,000 Units 50,000 Units oral Q7 Days Timothy Bai MD 50,000 Units at 12/07/24 1446 gabapentin (NEURONTIN) capsule 100 mg 100 mg oral TID Blanka Malagon MD 100 mg at 12/12/24 0840 glucagon injection 1 mg 1 mg intraMUSCULAR Q15 Min PRN Huey Hurtado MD glucose chew tab 16 g 16 g oral Q15 Min PRN Huey Hurtado MD hydrALAZINE (APRESOLINE) injection 10 mg 10 mg intravenous Q6H PRN Huey Hurtado MD 10 mg at 431 insulin lispro (HUMALOG, ADMELOG) injection 0-18 Units 0-18 Units subcutaneous 4x Daily AC Huey Hurtado MD 3 Units at 12/12/24 0636 lactulose (CHRONULAC) 10 gram/15 mL solution 10 g 10 g oral BID Timothy Bai MD 10 g at 12/12/24 0840 [Held by provider] melatonin tablet 3 mg 3 mg oral Every Night PRN Huey Hurtado MD metOLazone (ZAROXOLYN) tablet 2.5 mg 2.5 mg oral Daily Hema Cervantes MD 2.5 mg at 12/12/24 0858 ondansetron (ZOFRAN-ODT) disintegrating tablet 4 mg 4 mg oral Q8H PRN Huey Hurtado MD Or ondansetron (ZOFRAN) injection 4 mg 4 mg intravenous Q8H PRN Huey Hurtado MD 4 mg at 12/08/24 1140 oxyCODONE (ROXICODONE) immediate release tablet 5 mg 5 mg oral Q4H PRN Mary Carmen Mcfadden MD 5 mg at 12/08/24 1613 pantoprazole (PROTONIX) EC tablet 40 mg 40 mg oral BID Mary Carmen Mcfadden MD 40 mg at 12/12/24 0840 prochlorperazine (COMPAZINE) injection 10 mg 10 mg intravenous Q6H PRN Huey Hurtado MD rifAXIMin (XIFAXAN) tablet 550 mg 550 mg oral BID Destiney Llanes APRN 550 mg at 12/12/24 0840 sodium chloride 0.9 % infusion 20 mL/hr intravenous Once Denilson Hodgson, DO sodium chloride flush 10 mL 10 mL intravenous PRN Huey Hurtado MD spironolactone (ALDACTONE) tablet 12.5 mg 12.5 mg oral Daily Hill Boo MD 12.5 mg at 12/12/24 0840 tamsulosin (FLOMAX) capsule 0.4 mg 0.4 mg oral QPM David Coffman PA-C 0.4 mg at 12/11/24 1613 Radiology: Assessment and Plan Primary Diagnosis: Respiratory failure with anasarca Secondary Diagnosis: Principal Problem: Anasarca Anasarca Cirrhosis by ultrasound - Underlying metabolic associated steatohepatitis. - Status post paracentesis 12/10 (7.5 L), 11/30 (6 L). - Continuing Aldactone, Bumex. - Continue lactulose, had elevated ammonia on admission. - Continue rifaximin. Paroxysmal atrial fibrillation/NSVT - Echo 11/30--EF 55% ??5% borderline systolic strain pattern grade 2 diastolic dysfunction. - Being followed by EP cardiology. - On amiodarone 200 twice daily for a month then 200 mg daily. - Not a candidate for anticoagulation due to pancytopenia, risk of GI bleed (nonbleeding duodenal ulcer, small varices seen on EGD). - Follow electrolytes closely, replace as needed. Pancytopenia. - Bone marrow biopsy 12/02--unremarkable. - Downtrending at this time. - Transfuse for hemoglobin less than 7. - Hematology/oncology following. Acute hypoxemic/hypercapnic respiratory failure - [place] to be due to pulmonary edema from diastolic heart failure. - Improved but still requiring supplemental oxygen. - Continuing diuresis. -Pulmonology following. - BiPAP when sleeping/napping and as needed. - Titrate FiO2 for saturation greater than equal 92%. Acute diastolic heart failure present on admission - Continuing diuresis. -JUSTIN inhibitor, bisoprolol on hold. Acute kidney injury. - Being followed by nephrology. - Being aggressively diuresed. - Follow and replace electrolytes. - Avoid nephrotoxins, NSAIDs. - Renally dose all medications. - Metformin and lisinopril currently on hold. Diabetes mellitus - Goal glucose 140-180. - Mostly within goal. - Continue sliding scale insulin. Urine retention - Blas catheter in place draining clear yellow urine. - Started Flomax. - Likely due to acute illness and immobility. - Out of bed to chair - Consider urology consult. - Voiding trial. Decline in functional mobility. - Continuing physical and Occupational Therapy. - Plan for SNF/rehab pending medical readiness and pre-CERT Diet: Orders Placed This Encounter Procedures Heart Healthy Diet DVT ppx: SCDs. Chemoprophylaxis contraindicated due to pancytopenia. Code Status: Full Code Discharge Planning: Barriers to discharge: Pending medical improvement Expected (tentative) discharge in 3-5 days Expected discharge disposition (home, SNF/Rehab, etc): TBD Signed: QUI[facility] * David Coffman PA-C - 12/11/2024 10:49 AM EDT [facility] Progress Note Patient: Mary Coronel Subjective Chief Complaint / Reason for Follow-Up Mary Coronel is a 64 y.o. female on hospital day 11. The principal reason for today's follow up visit is Anasarca. Interval History Patient seen and evaluated this morning No acute events overnight Hemodynamics and labs for past 24 hours reviewed Patient lying in bed. Appears comfortable. Currently on 4 L via nasal cannula. Denies use of oxygenat home. Denies any coughing or wheezing. No chest pain. She felt that she was urinating well however she does have a Blas catheter in place draining clear yellow urine secondary to urine retention.She was unsure if she still had lower extremity edema or not. States that her abdomen did not feel as large as previous. Denied nausea or vomiting. Patient afebrile. Still pancytopenic with noted low white count 1700. 58% neutrophils with absolutecount of 1000. Renal function showing improvement versus yesterday with BUN down to 74.9 and creatinine down to 2.61. Glucose is noted to be mostly in range. Serum sodium still high but trending down. Chloride likewise high and trending down. Nephrology following. On multiple diuretics. Review of Systems Complete 12 system review performed with pertinent positives above, otherwise negative. Objective Vitals: Temp: [97.1 ??F (36.2 ??C)-98.2 ??F (36.8 ??C)] 98.2 ??F (36.8 ??C) Pulse: [71-94] 83 Resp: [18-20] 18 BP: (125-162)/(57-69) 125/63 FiO2 (%): [35 %] 35 % Intake/Output: Intake/Output Summary (Last 24 hours) at 12/11/2024 1049 Last data filed at 12/11/2024 0528 Gross per 24 hour Intake -- Output 2300 ml Net -2300 ml Physical exam: Awake, alert, no acute distress. Oriented x 3. Head atraumatic and normocephalic. Neck is supple without lymphadenopathy. Heart regular rate and rhythm without rub murmur or gallop. No JVD. No HJR. Lungs are distant but clear to auscultation bilaterally. No rhonchi, rales, wheezes. No retractions. No accessory muscle use. Abdomen soft, nontender, Bowel sounds positive x 4. No rebound or guarding. Extremities 3-4+ bilateral lower extremity edema. Edema extends all the way up to under shoulder blades. No shakes, tremors, seizures. Medications: Scheduled Meds: amiodarone 200 mg oral Daily 200 mg at 12/11/24 0842 amoxicillin-clavulanate 1 tablet oral BID 1 tablet at 12/11/24 0841 atorvastatin 20 mg oral Every Night 20 mg at 12/10/242104 bumetanide 2 mg oral BID 2 mg at 12/11/24 0841 ergocalciferol 50,000 Units oral Q7 Days 50,000 Units at 12/07/24 1446 gabapentin 100 mg oral TID 100 mg at 12/11/24 0842 insulin lispro 0-18 Units subcutaneous 4x Daily AC 3 Units at 12/11/24 0648 lactulose 10 g oral BID 10 g at 12/10/24 210 metOLazone 2.5 mg oral Daily pantoprazole 40 mg oral BID 40 mg at 12/11/24 0841 rifAXIMin 550 mg oral BID 550 mg at 12/11/24 0841 spironolactone 12.5 mg oral Daily 12.5 mg at 12/11/24 0841 Continuous Infusions: Current Facility-Administered Medications Medication Dose Route Frequency Provider Last Rate Last Admin acetaminophen (TYLENOL) tablet 500 mg 500 mg oral Q4H PRN Huey Hurtado MD 500 mg at 12/10/24 0026 albuterol 2.5 mg /3 mL (0.083 %) nebulizer solution 2.5 mg 2.5 mg nebulization Q6H PRN Albert Garcia MD amiodarone (PACERONE) tablet 200 mg 200 mg oral Daily Deysi Foss MD 200 mg at 12/11/24 0842 ammonium lactate (LAC-HYDRIN) lotion 12% topical PRN Huey Hurtado MD amoxicillin-clavulanate (AUGMENTIN) 500-125 mg per tablet 1 tablet 1 tablet oral BID Mary Carmen Mcfadden MD 1 tablet at 12/11/24 0841 atorvastatin (LIPITOR) tablet 20 mg 20 mg oral Every Night Huey Hurtado MD 20 mg at 12/10/24 2105 benzocaine-menthoL (CEPACOL) lozenge 1 lozenge 1 lozenge buccal Q2H PRN Timothy Bai MD bumetanide (BUMEX) tablet 2 mg 2 mg oral BID Hema Cervantes MD 2 mg at 12/11/24 0841 dextrose 50% (D50W) injection 25 g 25 g intravenous Q15 Min PRN Huey Hurtado MD ergocalciferol (DRISDOL) capsule 50,000 Units 50,000 Units oral Q7 Days Timothy Bai MD 50,000 Units at 12/07/24 1446 gabapentin (NEURONTIN) capsule 100 mg 100 mg oral TID Blanka Malagon MD 100 mg at 12/11/24 0842 glucagon injection 1 mg 1 mg intraMUSCULAR Q15 Min PRN Huey Hurtado MD glucose chew tab 16 g 16 g oral Q15 Min PRN Huey Hurtado MD hydrALAZINE (APRESOLINE) injection 10 mg 10 mg intravenous Q6H PRN Huey Hurtado MD 10 mg at 431 insulin lispro (HUMALOG, ADMELOG) injection 0-18 Units 0-18 Units subcutaneous 4x Daily MARIAN Hurtado MD 3 Units at 12/11/24 0648 lactulose (CHRONULAC) 10 gram/15 mL solution 10 g 10 g oral BID Timothy Bai MD 10 g at 12/10/24 210 [Held by provider] melatonin tablet 3 mg 3 mg oral Every Night PRN Huey Hurtado MD metOLazone (ZAROXOLYN) tablet 2.5 mg 2.5 mg oral Daily Hema Cervantes MD ondansetron (ZOFRAN-ODT) disintegrating tablet 4 mg 4 mg oral Q8H PRN Huey Hurtado MD Or ondansetron (ZOFRAN) injection 4 mg 4 mg intravenous Q8H PRN Huey Hurtado MD 4 mg at 12/08/24 1140 oxyCODONE (ROXICODONE) immediate release tablet 5 mg 5 mg oral Q4H PRN Mary Carmen Mcfadden MD 5 mg at 12/08/24 1613 pantoprazole (PROTONIX) EC tablet 40 mg 40 mg oral BID Mary Carmen Mcfadden MD 40 mg at 12/11/24 0841 prochlorperazine (COMPAZINE) injection 10 mg 10 mg intravenous Q6H PRN Huey Hurtado MD rifAXIMin (XIFAXAN) tablet 550 mg 550 mg oral BID Destiney Llanes APRN 550 mg at 12/11/24 0841 sodium chloride 0.9 % infusion 20 mL/hr intravenous Once Denilson Hodgson DO sodium chloride flush 10 mL 10 mL intravenous PRN Huey Hurtado MD spironolactone (ALDACTONE) tablet 12.5 mg 12.5 mg oral Daily Hill Boo MD 12.5 mg at 12/11/24 0841 Radiology: Assessment and Plan Primary Diagnosis: Respiratory failure with anasarca Secondary Diagnosis: Principal Problem: Anasarca Anasarca Cirrhosis by ultrasound - Underlying metabolic associated steatohepatitis. - Status post paracentesis 12/10 (7.5 L), 11/30 (6 L). - Continuing Aldactone, Bumex. - Continue lactulose, had elevated ammonia on admission. - Continue rifaximin. - Discontinue Augmentin. Paroxysmal atrial fibrillation/NSVT - Echo 11/30--EF 55% ??5% borderline systolic strain pattern grade 2 diastolic dysfunction. - Being followed by EP cardiology. - On amiodarone 200 twice daily for a month then 200 mg daily. - Not a candidate for anticoagulation due to pancytopenia, risk of GI bleed (nonbleeding duodenal ulcer, small varices seen on EGD). - Follow electrolytes closely, replace as needed. Pancytopenia. - Bone marrow biopsy 12/02--unremarkable. - Downtrending at this time. - Transfuse for hemoglobin less than 7. - Hematology/oncology following. Acute hypoxemic/hypercapnic respiratory failure - [place] to be due to pulmonary edema from diastolic heart failure. - Improved but still requiring supplemental oxygen. - Continuing diuresis. -Pulmonology following. - BiPAP when sleeping/napping and as needed. Acute diastolic heart failure present on admission - Continuing diuresis. -JUSTIN inhibitor, bisoprolol on hold. Acute kidney injury. - Being followed by nephrology. - Being aggressively diuresed. - Follow and replace electrolytes. - Avoid nephrotoxins, NSAIDs. - Renally dose all medications. - Metformin and lisinopril currently on hold. Diabetes mellitus - Hyperglycemia this morning. - Goal glucose 140-180. - Mostly within goal. - Continue sliding scale insulin. Urine retention - Blas catheter in place draining clear yellow urine. - Start Flomax. - Likely due to acute illness and immobility. - Out of bed to chair - Consider urology consult. Decline in functional mobility. - Continuing physical and Occupational Therapy. - Plan for SNF/rehab pending medical readiness and pre-CERT. Diet: Orders Placed This Encounter Procedures Heart Healthy Diet Additional Modifiers: Consistent Carbohydrate DVT ppx: Serial compression devices Code Status: Full Code Discharge Planning: Barriers to discharge: Pending medical improvement Expected (tentative) discharge in 3-5 days Expected discharge disposition (home, SNF/Rehab, etc): TBD Signed: Brad Coffman PA-C [facility] * Hema Cervantes MD - 12/11/2024 10:08 AM EDT Subjective: Seen and examined at bedside, reports feeling better today Denies chest pain or shortness of breath Sister at bedside. Noticed improvement in urine output after metolazone and increasing Bumex. Will continue metolazone, Bumex and spironolactone for now. Discussed extensively about checking daily standing weights. . Objective: Blood pressure 125/63, pulse 83, temperature 98.2 ??F (36.8 ??C), resp. rate 18, height 1.676 m (5'6 ), weight 98 kg (216 lb), SpO2 98%. Intake/Output Summary (Last 24 hours) at 12/11/2024 1008 Last data filed at 12/11/2024 0528 Gross per 24 hour Intake -- Output 2300 ml Net -2300 ml 12/10 0700 - 12/11 0659 In: - Out: 2300 [Urine:2300] Physical Exam: General Appearance: NAD Neuro: awake alert, no focal deficit noted Psych: Normal mood and affect, cooperative with exam Eyes: Pupils Equal, no conjunctivitis ENT: OMMM CV: RRR, ++ + edema Lungs: respirations regular and unlabored, symmetrical chest expansion Abdomen: not distended, NTTP Skin: No rash, Warm and dry Labs: Recent Labs Lab(s) Units 12/11/24 0336 12/09/24 0338 12/08/24 0410 WBC K/??L 1.7* 2.4* 3.1* HGB GM/DL 7.7* 8.5* 8.7* PLT K/CU MM 50* 55* 54* Recent Labs Lab(s) Units 12/11/24 0339 12/10/24 0953 12/09/24 0338 12/08/24 0410 12/07/24 0359 12/06/24 0313 12/05/24 0320 NA meq/L 146* -- 148* 149* 146* 146* 146* K meq/L 3.7 -- 3.6 3.6 3.8 3.9 3.6 CL meq/L 114* -- 116* 116* 118* 116* 117* CO2 meq/L 26 -- 23 23 20* 20* 20* BUN mg/dL 74.9* -- 77.3* 76.4* 72.9* 63.3* 59.4* CREATININE mg/dL 2.61* -- 2.82* 2.92* 3.13* 3.37* 3.14* CALCIUM mg/dL 8.2* -- 8.7 8.7 8.4 8.6 8.3* MG mg/dL -- 2.3 -- -- 2.4 2.4 2.3 ALBUMIN g/dL -- -- -- -- 4.1 4.6 4.3 A/P: 1- Anasarca - liver disease and low albumin level plus NSAID for one month 2- GERMÁN on CKD - Unknown baseline - on Lisinopril at home. Third spacing and recently increased doseof diuretics. Pre-renal azotemia - On lisinopril and NSAID and recently increased dose of diureticswith low albumin level vs HRS- Feurea 27% suggestive of pre-renal azotemia SFLC ratio 1.4, JEANA (-) ANCA (-) MPO(-), PR3(-) 4- Pancytopenia -Hematology following - S/p EGD 12/01/24 showing duodenal ulcer and small varices. S/p bone marrow biopsy 5- hx of DM 6- HTN 7- NAFLD 8- Ascites Plan: - Continue with diuretics- Bumex to 2 mg BID with Aldactone 12.5 mg po daily . - Start metolazone 2.5 mg daily - Monitor I/O strictly. Need to check weight daily on standing scale. - Avoid nephrotoxic agents - no NSAID - Continue to hold Lisinopril and metformin for GERMÁN - Renal diet - Adjust meds per renal function - No emergent need of PHARMACOMETRICIAN - Monitor H/H and transfuse for Hgb less than 7.0 Follow up with [facility]AL in 1-2 weeks with renal function panel Hema Cervantes MD 12/11/24 12:15 PM * DAWOOD Rubin/Amada - 12/10/2024 2:43 PM EDT Images from the original note were not included. Inpatient Occupational Therapy Treatment Note Patient Name: Mary Coronel Date of : 1960 Date of Treatment: 12/10/24 Start Time: 1347 Stop Time: 1443 Session Duration: 56 minutes This patient is a 64 y.o. female admitted on 11/30/2024 with Anasarca [R60.1]. Past Medical History: Diagnosis Date Cirrhosis, non-alcoholic (HCC) Diabetes mellitus (HCC) Hypertension Past Surgical History: Procedure Laterality Date ESOPHAGOGASTRODUODENOSCOPY (EGD),REMOVAL FOREIGN BODY N/A 12/01/2024 Procedure: EGD, WITH FOREIGN BODY REMOVAL; Surgeon: Scott Daley MD; [facility]; Service: Gastroenterology; Laterality: N/A; General Visit type: Treatment Approved by: Nurse Metzger Patient disposition upon entry: Patient verified by name, Patient verified by date of , Supinein bed Co-treated by: HAND TOUCH UP PAINTER Assisted by: statistical assistant Precautions Weightbearing status: No restrictions Precautions: Fall risk Isolation precautions: Standard Subjective Subjective: Pt agreeable Pain No-patient has no complaints of pain Cognition Cognition: Overall cognitive status: Patient is awake and alert, attending to directions appropriately, demonstrating good problem solving skills, and aware of any deficits or impairments, if present. Objective Vitals Stable throughout Bed Mobility Supine to sit: Standby assist, Head of bed elevated, Use of bedrails Sit to supine: Standby assist, Head of bed elevated, Use of bedrails Transfers Sit to stand:Contact guard, 1 person assist Stand to sit:Contact guard, 1 person assist Functional mobility:Contact guard, Gait belt used, Rolling walker used ADLs Lower body dressing:Moderate Assistance, Donning briefs Balance Static sitting balance:Normal: Patient able to maintain steady balance without handheld support Dynamic sitting balance:Normal: Patient accepts maximal challenge and shift weight easily within full range in all directions Static standing balance:Fair: Patient able to maintain balance with handheld support, may require occasional minimal assistance Dynamic standing balance:Fair: Patient accepts minimal challenge; able to maintain balance while turning head/trunk Activity Tolerance Patient tolerated activity/intervention well with no complaints or adverse events. Treatment Upon entering room, pt was supine in bed. Pt was able to transfer to seated at EOB with SBA and useof bed features. From EOB pt was complete knee extension and overhead flexion exercise. Pt presented with posterior lean while extending bilateral knees. Pt was able to stand from EOB with CGA and use of RW. Discovered pt had BM and pt returned to EOB. ATOMIC WELDER entered room to assist. Pt was able to stand with CGA and maintain standing with CGA whilst pt was cleaned and sheets changed. Was able to don briefs with mod A. PT entered room and pt was able to ambulate with CGA and use of RW in hallway prior to returning toroom and transferring back to supine in bed with SBA. Assessment Assessment Patient demonstrated improved performance during this treatment session. Patient continues to present with decreased strength, decreased endurance, decreased balance. These deficits currently impact the patient's ability to perform ADLs and functional mobility, putting them at an increased risk forincreased falls, increased risk of pressure injury, further functional decline, increased caregiverburden. Patient will benefit from continued OT services to address the aforementioned functional deficits. Plan Recommendations Discharge recommendations: Patient would benefit from 1-2 hours of multidisciplinary therapy per day upon discharge from acute care setting to assist with returning to prior level of functioning. DME recommendations: Unable to make adaptive/DME recommendations at this time. Treatment Plan: Adaptive equipment training, ADL training, Functional mobility/transfer training, Home modification recommendations , IADL training, Safety training, Strengthening OT Frequency/Duration: 3x/week for 14 days Goals Grooming: face washing, standing with standby assist Lower body dressing: donning and doffing lower body clothing with standby assist. Toileting: toileting with contact guard assist. Functional transfers: stand pivot transfer with standby assist. HEP: The pt will demonstrate ability to complete BUE HEP to increase/maintain BUE strength to promote independence with ADL tasks. Goals were discussed with patient Progress towards goals: progressing Education Patient educated on safety, role of occupational therapy, patient's plan of care, functional mobility and following, they were able to verbalize understanding, return demonstration. Patient Disposition Upon Leaving Patient Disposition: Supine in bed, All needs met and within reach, Call light/pull cord in reach If this patient discharges prior to next therapy session, this note serves as the patient's discharge summary. Electronically signed by NBA Rubin - 12/10/2024 - 3:02 PM EDT * Jayde Hansen PTA - 12/10/2024 2:42 PM EDT Images from the original note were not included. Inpatient Physical Therapy Treatment Patient Name: Mary Coronel Date of : 1960 Date of Treatment: 12/10/24 Start Time 1415 Stop Time 1442 Session Duration 27 minutes General Visit Type: Treatment Approved By: Nurse Sampson Patient Disposition Upon Entry: Sitting edge of bed, Call Light/Pull Cord in reach, All needs met and within reach, already working with OT Patient Verified By: Name and Date of Co-treated by: OT Precautions Weight-Bearing Status: No Restrictions Precautions: Fall risk Isolation Precautions: Standard Subjective Subjective: Patient agreeable to physical therapy treatment. Pain No - Patient not reporting pain at this time Cognition Orientation Level: Oriented x4 Objective Functional Mobility Bed Mobility: Sit to Supine: supervision Transfers Sit to Stand: contact guard assist, gait belt used, rolling walker used Stand to Sit: contact guard assist, gait belt used, rolling walker used Gait Gait Assistance: contact guard assist Assistive Device: Gait Belt, Rolling walker Distance: 80', 90', 60', 100', 140' Patient required standing rest breaks between ambulation bouts. Stair Management Unable to assess due to deconditioning, fatigue, weakness, and impaired balance . Wheelchair Mobility Unable to assess due to deconditioning, fatigue, weakness, and impaired balance . AM-PAC Basic Mobility Inpatient Short Form How much difficulty does the patient currently have: Turning over in bed (including adjusting bedclothes, sheets, and blankets)? (1) Total/Unable (not able to do the activity or can only perform the activity using assistive devices or requires assistance from another person, including supervision or cueing for safety) Sitting down on and standing up from a chair with arms (e.g., wheelchair, bedside commode, etc.)? (1) Total/Unable (not able to do the activity or can only perform the activity using assistive devices or requires assistance from another person, including supervision or cueing for safety) Moving from lying on back to sitting on side of bed? (1) Total/Unable (not able to do the activity or can only perform the activity using assistive devices or requires assistance from another person,including supervision or cueing for safety) How much help from another person does the patient currently need: Moving to and from a bed to a chair (including a wheelchair)? (3) A little (Minimal/Contact guard/Supervision/Setup) Need to walk in hospital room? (3) A little (Minimal/Contact guard/Supervision/Setup) Climbing 3-5 steps with a railing? (3) A little (Minimal/Contact guard/Supervision/Setup) Score Raw score=12 t-Scale score=35.33 Standard error=3.08 CMS 0-100%=68.66% MDC=4.72 A raw score of >= 16 is significantly associated with increased odds of discharge to home in addition to consideration made for the patient's cognition and social determinants of health. Balance Static/dynamic sitting and static/dynamic standing balance grades Balance Grade Sitting Static Normal - patient able to maintain steady balance without handhold support Sitting Dynamic Fair - patient accepts minimal challenge; able to maintain balance while turning head/trunk Standing Static Fair - patient able to maintain balance with handhold support; may require occasional minimal assistance Standing Dynamic Fair - patient accepts minimal challenge; able to maintain balance while turning head/trunk Activity Tolerance Patient limited with activity/intervention due to fatigue and deconditioning Assessment Patient was able to ambulate with assistance for safety. Patient would benefit from continued therapy to increase endurance and decrease safety risk and caregiver burden. Plan Treatment plan: Continue per plan of care. PT Frequency/Duration: 5x/week for 14 days Recommendations Discharge recommendations: Patient would benefit from 1-2 hours of multidisciplinary therapy per day upon discharge from acute care setting to assist with returning to prior level of functioning. DME recommendations: Patient has no DME/adaptive equipment discharge needs at this time. Goals Supine to/from sit: IND from bed flat Sit to/from stand: Deidra RW Gait: 450ft RW Deidra Balance: Pt will stand 2min unsupported in normal stance no LOB SBA only Target Date: 12/19/2024 Progress towards goals: progressing Education Patient educated on safety, role of physical therapy, and plan of care and following, they were able to verbalize understanding. No further questions or concerns stated. Patient Disposition Upon Leaving Supine in bed, Call Light/Pull Cord in reach, All needs met and within reach If this patient discharges prior to next therapy session, this note serves as the patient's discharge summary. Electronically signed by Jayde Hansen PTA - 12/10/24 - 2:54 PM EDT Cosigned by Alberto Love PT at 12/15/2024 10:54 AM EDT Associated attestation - Alberto Love PT - 12/15/2024 9:54 AM CDT I, Alberto Love PT, DPT, reviewed the notes, assessments, and/or procedures performed by Jayde Hansen PTA, I concur with their documentation of Mary Coronel. Electronically signed by Alberto Love PT, DPT - 12/15/24 - 10:53 AM EST * KENNEY Zaragoza - 12/10/2024 12:34 PM EDTSummary: Case Management Discharge Planning Progress Note Discharge Plan Progress Note SW/MANGO spoke with patient's sister, Jojo Mcgill this morning via phone. Family prefers [facility] (in [place] known as [facility]), as they live 10-20minutes away from facility. JOSE MANUEL/MANGO contacted compliance coordinator via text, number provided by family, phone # [phone]. farhan [place]orga, fax # [phone]. CM sent updated referral. Patient will need precert. Family, sister Jojo will be able to transport at discharge, but will been 24 hour notice to be able to transport to facility. CM plan is SNF/rehab possible early next week pending medical readiness, and precert. Update 3:27 pm - updated PT and OT notes faxed to [facility] KENNEY Zaragoza * Hema Cervantes MD - 12/10/2024 12:15 PM EDT Subjective: Seen and examined at bedside, patient reports feeling better Still noted to be very edematous. Discussed about increasing diuretics. Objective: Blood pressure (!) 144/78, pulse 90, temperature 97.7 ??F (36.5 ??C), resp. rate 19, height 1.676 m(5' 6 ), weight 98 kg (216 lb 0.8 oz), SpO2 97%. Intake/Output Summary (Last 24 hours) at 12/10/2024 1215 Last data filed at 12/10/2024 0600 Gross per 24 hour Intake -- Output 700 ml Net -700 ml 12/09 0700 - 12/10 0659 In: - Out: 700 [Urine:700] Physical Exam: General Appearance: NAD Neuro: awake alert, no focal deficit noted Psych: Normal mood and affect, cooperative with exam Eyes: Pupils Equal, no conjunctivitis ENT: OMMM CV: RRR, ++ + edema Lungs: respirations regular and unlabored, symmetrical chest expansion Abdomen: not distended, NTTP Skin: No rash, Warm and dry Labs: Recent Labs Lab(s) Units 12/09/24 0338 12/08/24 0410 12/07/24 0359 WBC K/??L 2.4* 3.1* 3.5* HGB GM/DL 8.5* 8.7* 7.9* PLT K/CU MM 55* 54* 54* Recent Labs Lab(s) Units 12/10/24 0953 12/09/24 0338 12/08/24 0410 12/07/24 0359 12/06/24 0313 12/05/24 0320 12/04/24 1053 12/04/24 0334 NA meq/L -- 148* 149* 146* 146* 146* < > 143 K meq/L -- 3.6 3.6 3.8 3.9 3.6 < > 3.7 CL meq/L -- 116* 116* 118* 116* 117* < > 115* CO2 meq/L -- 23 23 20* 20* 20* < > 20* BUN mg/dL -- 77.3* 76.4* 72.9* 63.3* 59.4* < > 58.6* CREATININE mg/dL -- 2.82* 2.92* 3.13* 3.37* 3.14* < > 3.43* CALCIUM mg/dL -- 8.7 8.7 8.4 8.6 8.3* < > 8.3* PHOS mg/dL -- -- -- -- -- -- -- 4.2 MG mg/dL 2.3 -- -- 2.4 2.4 2.3 -- 2.5 ALBUMIN g/dL -- -- -- 4.1 4.6 4.3 -- 4.2 < > = values in this interval not displayed. A/P: 1- Anasarca - liver disease and low albumin level plus NSAID for one month 2- GERMÁN on CKD - Unknown baseline - on Lisinopril at home. Third spacing and recently increased doseof diuretics. Pre-renal azotemia - On lisinopril and NSAID and recently increased dose of diureticswith low albumin level vs HRS- Feurea 27% suggestive of pre-renal azotemia SFLC ratio 1.4, JEANA (-) ANCA (-) MPO(-), PR3(-) 4- Pancytopenia -Hematology following - S/p EGD 12/01/24 showing duodenal ulcer and small varices. S/p bone marrow biopsy 5- hx of DM 6- HTN 7- NAFLD 8- Ascites Plan: - Continue with diuretics- increase Bumex to 2 mg BID with Aldactone 12.5 mg po daily . - Will give a dose of metolazone again today. - Monitor I/O strictly. Need to check weight daily on standing scale. - Avoid nephrotoxic agents - no NSAID - Continue to hold Lisinopril and metformin for GERMÁN - Renal diet - Adjust meds per renal function - No emergent need of PHARMACOMETRICIAN - Monitor H/H and transfuse for Hgb less than 7.0 Follow up with [facility] in 1-2 weeks with renal function panel Hema Cervantes MD 12/10/24 12:15 PM * Venkatesh Stephen MD - 12/10/2024 11:04 AM EDT Subjective Abdominal distension noted, no complains of chest pain, SOB Last Recorded Vitals Blood pressure (!) 142/57, pulse 85, temperature 97.1 ??F (36.2 ??C), temperature source Oral, resp. rate 18, height 1.676 m (5' 6 ), weight 98 kg (216 lb 0.8 oz), SpO2 100%. Physical Exam Head atraumatic normocephalic Pupils round and reactive Mouth dry Neck supple full range of motion Chest Diminished in the bilateral breath expiratory wheezes Heart S1 and S2 healed regular rate Abdomen soft audible bowel sounds no tenderness Abdomen distended Extremities no edema erythema or tenderness Neurological patient alert awake move extremities Psychiatric anxiety Skin no apparent rashes Endocrine no thyromegaly tenderness General Patient in bed mild distress Labs: Results for orders placed or performed during the hospital encounter of 11/30/24 (from the past 24 hours) Glucose, Nova Meter Status: Abnormal Collection Time: 12/10/24 5:52 AM Result Value Ref Range POC-GLUCOSE 162 (H) 70 - 110 mg/dL Laboratory Scientist [id number] ABG Status: Abnormal Collection Time: 12/10/24 6:42 AM Result Value Ref Range pH, Arterial 7.30 (L) 7.35 - 7.45 pCO2, Arterial 49 (H) 35 - 45 mm Hg pO2, Arterial 119 (H) 80 - 100 mm Hg HCO3, Arterial 24 20 - 26 mmol/L Base Excess, Arterial -2.4 (L) -2.0 - 2.0 mmol/L O2 Sat, Arterial >99.2 95.0 - 100.0 % CTO2 ARTERIAL 11.9 mmol/L THB ARTERIAL 8.5 (L) 12.0 - 18.0 g/dL [facility] COLLECTION SITE Left Radial Arterial Puncture Yes Blood Gas O2 Delivery Device Cannula Oxygen Flow Rate 4 Blood Gas PT Temperature C 37.0 Sen's Test Acceptable ABG Number of Draw Attempts 1 FIO2 Blood Gas Temperature Corrected Results No No AST (SGOT) Status: Abnormal Collection Time: 12/10/24 9:53 AM Result Value Ref Range AST 39 (H) 11 - 34 U/L ALT (SGPT) Status: Normal Collection Time: 12/10/24 9:53 AM Result Value Ref Range ALT 12 <=34 U/L Magnesium Status: Normal Collection Time: 12/10/24 9:53 AM Result Value Ref Range Magnesium 2.3 1.6 - 2.6 mg/dL Glucose, Nova Meter Status: Abnormal Collection Time: 12/10/24 4:56 PM Result Value Ref Range POC-GLUCOSE 195 (H) 70 - 110 mg/dL Laboratory Scientist [id number] Glucose, Nova Meter Status: Abnormal Collection Time: 12/10/24 6:32 PM Result Value Ref Range POC-GLUCOSE 235 (H) 70 - 110 mg/dL Laboratory Scientist [id number] Glucose, Nova Meter Status: Abnormal Collection Time: 12/10/24 7:38 PM Result Value Ref Range POC-GLUCOSE 201 (H) 70 - 110 mg/dL Laboratory Scientist [id number] US paracentesis Narrative: ULTRASOUND-GUIDED PARACENTESIS HISTORY: Ascites. ATTENDING PHYSICIAN: Dr. Haseeb Gil PHYSICIAN ELDER ASSISTANT: Sujit Blackman PA-C FINDINGS: After informed consent was obtained from the patient and time-out procedure performed, the patient was placed sitting upright in the ultrasound suite. Fluid was localized in the right lower quadrant under ultrasound guidance and marked on the skin appropriately. The patient was then prepped and draped in the usual sterile fashion and the skin was anesthetized with 1% Lidocaine. An ultrasound guided paracentesis was then performed using a Turkel needle. Approximately 7.5 liters of clear yellow fluid was removed. No fluid was sent to lab. The patient tolerated the procedure well and there were no immediate complications. Impression: Ultrasound guided right lower quadrant paracentesis as discussed above. 7.5 liters of clear yellow fluid was removed. Images reviewed, interpreted, and dictated by Dr. Haseeb Gil. Transcribed by Sujit Blackman PA-C. XR chest AP portable Narrative: PORTABLE CHEST. 12/10/2024 9:10 AM HISTORY: Respiratory failure, follow-up. COMPARISON: December 09, 2024. FINDINGS: The cardiac silhouette is mildly enlarged. Pulmonary vascular congestion has resolved. There is mild bibasilar atelectasis. There is no pneumothorax. Cervical spine fusion hardware is identified in the lower cervical spine. Impression: Mild bibasilar atelectasis. Images reviewed, interpreted, and dictated by Dr. Dre Keenan. Transcribed by Haven Henderson PA-C. Assessment Anasarca Paroxysmal Atrial Fib *CAD *Diabetes mellitus *HTN *HLD *pancytopenia *GERMÁN current GFR 15. Nonalcoholic liver cirrhosis with ascites Ascites Status post paracentesis Duodenal ulcer Anasarca Diabetes mellitus Acute renal failure 12/09/2024 Plan PT OT Monitor kidney function Creatinine improving No emergent dialysis Labs in a.m. Patient today on BiPAP Repeat blood gas pulmonary following Paracentesis today Blas catheter will be placed Discharge Planning: Patient will need paracentesis today Patient not ready to be discharged blood gas ordered Pending blood gas improvement And more awake education general manager working discharge plan, likely dc 1-2 days pending improvement, plan for paracentesis today * Deysi Foss MD - 12/10/2024 8:13 AM EDT EP progress note Patient Name: Mary Coronel Admission Date: 11/30/2024 Primary Care Provider: JACKIE Find-a-Doc Chief Complaint/Reason for Consult: No chief complaint on file. History of Present Illness: Mary Coronel is a 64 y.o. female, admitted on: 11/30/2024 1:43 AM. presented to [facility] with swollen abdomen, abdominal discomfort and bilateral lower extremity pitting edema. Patient's BUN/creatinine elevated, and patient subsequently transferred to [facility] for hepatorenal syndrome evaluation. Admits to 4 weeks of progressive SOB, FUNK, orthopnea, lower extremit y swelling, abdominal swelling, ataxia issues. States beforementioned symptoms have gotten worse over past week. Also states she has gained 16 pounds over past week. Admitts to chronic RUQ, diffuse abdominal discomfort which is worsened over past week. Reports decreased urine output x 7 days. Pt was admitted with nonalcoholic liver cirrhosis with ascites and underwent paracentesis on 11/30 with 6L removed. EGD revealed a duodenal ulcer and small varices. While on telemetry, pt is having some afib and brief runs of NSVT. Asymptomatic. BP stable. EP consulted for evaluation and management. Medications: Prior to Admission Medications: Medications Prior to Admission Medication Sig Dispense Refill Last Dose/Taking albuterol 90 mcg/actuation inhaler Inhale 1 puff by mouth every 6 (six) hours as needed for wheezing. ammonium lactate (AMLACTIN) 12 % cream Apply 1 g topically as needed for dry skin. aspirin 81 MG chewable tablet Take 1 tablet (81 mg total) by mouth daily. atorvastatin (LIPITOR) 20 MG tablet Take 1 tablet (20 mg total) by mouth nightly. bisoprolol (ZEBETA) 10 MG tablet Take 1 tablet (10 mg total) by mouth 2 (two) times daily. cholecalciferol (VITAMIN D3) 125 mcg (5,000 unit) tablet Take 2 tablets (10,000 Units total) by mouth daily. clopidogreL (PLAVIX) 75 mg tablet Take 1 tablet (75 mg total) by mouth daily Look-alike/Sound-alike medication. colestipoL (COLESTID) 1 gram tablet Take 2 tablets (2 g total) by mouth daily. dicyclomine (BENTYL) 10 MG capsule Take 1 capsule (10 mg total) by mouth 2 (two) times daily. furosemide (LASIX) 40 MG tablet Take 1 tablet (40 mg total) by mouth 2 (two) times daily. HYDROcodone-acetaminophen (NORCO) 10-325 mg per tablet Take 1 tablet by mouth every 6 (six) hours as needed for pain. Max Daily Amount: 4 tablets hydrOXYzine pamoate (VISTARIL) 50 MG capsule Take 1 capsule (50 mg total) by mouth every night as needed for itching (sleep) Look-alike/Sound-alike medication. insulin aspart U-100 (NovoLOG) 100 unit/mL (3 mL) inpn Inject under the skin 4 (four) times daily before meals and nightly. [DISCONTINUED] gabapentin (NEURONTIN) 800 MG tablet Take 1 tablet (800 mg total) by mouth 3 (three)times daily. Max Daily Amount: 2,400 mg [DISCONTINUED] lisinopriL (ZESTRIL) 10 MG tablet Take 1 tablet (10 mg total) by mouth 2 (two) timesdaily. [DISCONTINUED] metFORMIN (GLUCOPHAGE) 1000 MG tablet Take 1 tablet (1,000 mg total) by mouth 2 (two) times daily with breakfast and dinner Look-alike/Sound-alike medication. [DISCONTINUED] tirzepatide 7.5 mg/0.5 mL pnij Inject 7.5 mg under the skin every 7 days. [DISCONTINUED] triamcinolone (KENALOG) 0.1 % topical cream Apply 0.1 Applications topically daily to affected area.. Scheduled Medications: amiodarone 200 mg oral Daily 200 mg at 12/09/24 0920 amoxicillin-clavulanate 1 tablet oral BID 1 tablet at 12/09/242108 atorvastatin 20 mg oral Every Night 20 mg at 12/09/242108 bumetanide 1 mg oral TID 1 mg at 12/09/242109 ergocalciferol 50,000 Units oral Q7 Days 50,000 Units at 12/07/246 gabapentin 100 mg oral TID 100 mg at 12/09/242108 insulin lispro 0-18 Units subcutaneous 4x Daily AC 3 Units at 12/10/24 0642 lactulose 10 g oral BID 10 g at 12/09/242108 pantoprazole 40 mg oral BID 40 mg at 12/09/242108 rifAXIMin 550 mg oral BID 550 mg at 12/09/242108 spironolactone 12.5 mg oral Daily 12.5 mg at 12/09/24 0919 Current Infusions: Current Facility-Administered Medications Medication Dose Route Frequency Provider Last Rate Last Admin acetaminophen (TYLENOL) tablet 500 mg 500 mg oral Q4H PRN Huey Hurtado MD 500 mg at 12/10/24 0026 albuterol 2.5 mg /3 mL (0.083 %) nebulizer solution 2.5 mg 2.5 mg nebulization Q6H PRN Albert Garcia MD amiodarone (PACERONE) tablet 200 mg 200 mg oral Daily Deysi Foss MD 200 mg at 12/09/24 09 ammonium lactate (LAC-HYDRIN) lotion 12% topical PRN Huey Hurtado MD amoxicillin-clavulanate (AUGMENTIN) 500-125 mg per tablet 1 tablet 1 tablet oral BID Mary Carmen Mcfadden MD 1 tablet at 12/09/242108 atorvastatin (LIPITOR) tablet 20 mg 20 mg oral Every Night Huey Hurtado MD 20 mg at 12/09/242108 benzocaine-menthoL (CEPACOL) lozenge 1 lozenge 1 lozenge buccal Q2H PRN Timothy Bai MD bumetanide (BUMEX) tablet 1 mg 1 mg oral TID Hill Boo MD 1 mg at 12/09/242109 dextrose 50% (D50W) injection 25 g 25 g intravenous Q15 Min PRN Huey Hurtado MD ergocalciferol (DRISDOL) capsule 50,000 Units 50,000 Units oral Q7 Days Timothy Bai MD 50,000 Units at 12/07/24 1446 gabapentin (NEURONTIN) capsule 100 mg 100 mg oral TID Blanka Malagon MD 100 mg at 12/09/242108 glucagon injection 1 mg 1 mg intraMUSCULAR Q15 Min PRN Huey Hurtado MD glucose chew tab 16 g 16 g oral Q15 Min PRN Huey Hurtado MD hydrALAZINE (APRESOLINE) injection 10 mg 10 mg intravenous Q6H PRN Huey Hurtado MD 10 mg at 1 insulin lispro (HUMALOG, ADMELOG) injection 0-18 Units 0-18 Units subcutaneous 4x Daily AC Huey Hurtado MD 3 Units at 12/10/24 06 lactulose (CHRONULAC) 10 gram/15 mL solution 10 g 10 g oral BID Timothy Bai MD 10 g at 12/09/242108 [Held by provider] melatonin tablet 3 mg 3 mg oral Every Night PRN Huey Hurtado MD ondansetron (ZOFRAN-ODT) disintegrating tablet 4 mg 4 mg oral Q8H PRN Huey Hurtado MD Or ondansetron (ZOFRAN) injection 4 mg 4 mg intravenous Q8H PRN Huey Hurtado MD 4 mg at 12/08/24 114 oxyCODONE (ROXICODONE) immediate release tablet 5 mg 5 mg oral Q4H PRN Mary Carmen Mcfadden MD 5 mg at 12/08/24 161 pantoprazole (PROTONIX) EC tablet 40 mg 40 mg oral BID Mary Carmen Mcfadden MD 40 mg at 12/09/242108 prochlorperazine (COMPAZINE) injection 10 mg 10 mg intravenous Q6H PRN Huey Hurtado MD rifAXIMin (XIFAXAN) tablet 550 mg 550 mg oral BID Destiney Llanes APRN 550 mg at 12/09/242108 sodium chloride 0.9 % infusion 20 mL/hr intravenous Deacon Hodgson DO sodium chloride flush 10 mL 10 mL intravenous PRN Huey Hurtado MD spironolactone (ALDACTONE) tablet 12.5 mg 12.5 mg oral Daily Hill Boo MD 12.5 mg at 12/09/24 0919 More meds No current facility-administered medications on file prior to encounter. Current Outpatient Medications on File Prior to Encounter Medication Sig Dispense Refill albuterol 90 mcg/actuation inhaler Inhale 1 puff by mouth every 6 (six) hours as needed for wheezing. ammonium lactate (AMLACTIN) 12 % cream Apply 1 g topically as needed for dry skin. aspirin 81 MG chewable tablet Take 1 tablet (81 mg total) by mouth daily. atorvastatin (LIPITOR) 20 MG tablet Take 1 tablet (20 mg total) by mouth nightly. bisoprolol (ZEBETA) 10 MG tablet Take 1 tablet (10 mg total) by mouth 2 (two) times daily. cholecalciferol (VITAMIN D3) 125 mcg (5,000 unit) tablet Take 2 tablets (10,000 Units total) by mouth daily. clopidogreL (PLAVIX) 75 mg tablet Take 1 tablet (75 mg total) by mouth daily Look-alike/Sound-alike medication. colestipoL (COLESTID) 1 gram tablet Take 2 tablets (2 g total) by mouth daily. dicyclomine (BENTYL) 10 MG capsule Take 1 capsule (10 mg total) by mouth 2 (two) times daily. furosemide (LASIX) 40 MG tablet Take 1 tablet (40 mg total) by mouth 2 (two) times daily. HYDROcodone-acetaminophen (NORCO) 10-325 mg per tablet Take 1 tablet by mouth every 6 (six) hours as needed for pain. Max Daily Amount: 4 tablets hydrOXYzine pamoate (VISTARIL) 50 MG capsule Take 1 capsule (50 mg total) by mouth every night as needed for itching (sleep) Look-alike/Sound-alike medication. insulin aspart U-100 (NovoLOG) 100 unit/mL (3 mL) inpn Inject under the skin 4 (four) times daily before meals and nightly. Problem list and diagnosis Patient Active Problem List Diagnosis Anasarca Melena 1. Melena Case request operating room: ESOPHAGOGASTRODUODENOSCOPY (EGD) Case request operating room: ESOPHAGOGASTRODUODENOSCOPY (EGD) Lactate dehydrogenase (LDH), body fluid Lactate dehydrogenase (LDH), body fluid Body fluid cell count with differential Body fluid cell count with differential Body Fluid Culture + Gram Stain Body Fluid Culture + Gram Stain Anaerobic Culture Anaerobic Culture Fungus Culture W/ROSA MARIA Or Nimisha Ink Fungus Culture W/ROSA MARIA Or Nimisha Ink AFB Culture And Stain AFB Culture And Stain [facility] Non-Optometric Assistant Cytology [facility] Non-Optometric Assistant Cytology DIFFERENTIAL, BODY FLUID DIFFERENTIAL, BODY FLUID Body Fluid/CSF - Path Review () Body Fluid/CSF - Path Review () [facility] BONE MARROW SMEAR, ASPIRATION, AND STAIN [facility] BONE MARROW SMEAR, ASPIRATION, AND STAIN CANCELED: Glucose Body Fluid(SENDOUT) CANCELED: Glucose Body Fluid(SENDOUT) CANCELED: Total Protein, Body Fluid(SENDOUT) CANCELED: Total Protein, Body Fluid(SENDOUT) 2. Anasarca gabapentin (NEURONTIN) capsule 100 mg bumetanide (BUMEX) injection 1 mg Past Medical History: Past Medical History: Diagnosis Date Cirrhosis, non-alcoholic (HCC) Diabetes mellitus (HCC) Hypertension Past Surgical History: Past Surgical History: Procedure Laterality Date ESOPHAGOGASTRODUODENOSCOPY (EGD),REMOVAL FOREIGN BODY N/A 12/01/2024 Procedure: EGD, WITH FOREIGN BODY REMOVAL; Surgeon: Scott Daley MD; [facility]; Service: Gastroenterology; Laterality: N/A; Allergies: No Known Allergies Social History: Tobacco Use Smoking status: Never Passive exposure: Never Smokeless tobacco: Never Substance Use Topics Alcohol use: Never Drug use: Never Marital Status: Family History: No family history on file. Review of Systems: Constitutional: Negative except as documented in history of present illness. Eye: Negative except as documented in history of present illness. Ear/Nose/Mouth/Throat: Negative except as documented in history of present illness. Respiratory: Negative except as documented in history of present illness. Cardiovascular: Negative except as documented in history of present illness. Gastrointestinal: Negative except as documented in history of present illness. Genitourinary: Negative except as documented in history of present illness. Hematology/Lymphatics: Negative except as documented in history of present illness. Endocrine: Negative except as documented in history of present illness. Immunologic: Negative except as documented in history of present illness. Musculoskeletal: Negative except as documented in history of present illness. Integumentary: Negative except as documented in history of present illness. Neurologic: Negative except as documented in history of present illness. Psychiatric: Negative except as documented in history of present illness. Physical Exam: Blood pressure 116/66, pulse 84, temperature 97.3 ??F (36.3 ??C), resp. rate 19, height 1.676 m (5'6 ), weight 98 kg (216 lb 0.8 oz), SpO2 100%. General: Alert and oriented. Ill-appearing Eye: Pupils are equal, round and reactive to light. HENT: Normocephalic. Neck: Supple, Non-tender, No carotid bruit, No jugular venous distention. Respiratory: Decreased breath sound bilateral, Respirations are non-labored. Cardiovascular: regular rhythm, No murmur Gastrointestinal: Soft, Non-tender, slightly distended, Normal bowel sounds. Musculoskeletal: Normal range of motion. Integumentary: Warm, Dry, [place]. Neurologic: No obvious focal deficit Psychiatric: Cooperative, Appropriate mood & affect. Labs, Imaging, and Other Studies: Echo Results (last 7 days) Procedure Component Value Units Date/Time ECHO COMPLETE (DOPPLER / COLOR) W OR WO CONTRAST [[id number]] Collected: 11/30/24724 Order Status: Completed Updated: 11/30/24 104 Narrative: TRANSTHORACIC ECHOCARDIOGRAPHY REPORT Demographics Patient Name: RIN JONES : 1960 Age: 64 year(s) Corporate ID Number: [id number] Gender Female Container Repairer: Giovanna Rock Height: 67 inches [facility] Referring Physician: HUEY HURTADO Weight: 225 pounds Interpreting JESSICA RAYMOND MD BMI: 35.24 kg/m^2 Physician: Date of Service: 11/30/2024 Blood Pressure: 118/59 mmHg Room Number: 579 Type of Study: TTE procedure: ECHO COMPLETE (DOPPLER / COLOR) W OR WO CONTRAST. Patient Status: Routine IP Study Location: PortableTechnical Quality: Adequate visualization History/Tech Notes: Indication: shortness of breath R06.02 Impression: ######################################## Normal sized left ventricle. Normal left ventricular wall thickness. Visually estimated ejection fraction 55% +/- 5%. Borderline systolic strain pattern. Increased left atrial pressure (Grade II diastolic dysfunction). Sclerotic aortic valve leaflets. Trivial pericardial effusion measuring 0.3cm. posteriorly. ######################################## Measurements Summary: LVEDd: 5.33 cm LVESd: 3.64 cm IVSEd: 0.88 cm AO Root:2.7 cm LVPWd: 0.87 cm Contractility Score Normal Left Ventricular contractility was noted. LV regional wall motion: (0-Not visualized 1-Normal 2-Hypokinesis 3-Akinesis 4-Dyskinesis 5-Aneurysm) Left Ventricle Peak E-wave: 1.31 Peak A-wave: 1.35 m/s E/A ratio: 0.97 m/s Volume [id number] LV length: 8.51 cm ml Volume [id number] ml LVOT diameter: 1.79 cm Normal sized left ventricle. Normal left ventricular wall thickness. Visually estimated ejection fraction 55% +/- 5%. Borderline systolic strain pattern. Increased left atrial pressure (Grade II diastolic dysfunction). No left ventricular masses or thrombi. Right Ventricle Diastolic dimension: 3.92 RV systolic pressure: 28.12 mmHg cm Normal sized right ventricle. Normal TAPSE c/w normal right ventricular function Left Atrium LA dimension: 4 cm LA volume:83.13 ml LA/Aorta: 1.48 Abnormal left atrial volume index 39 ml/m^2. Intact atrial septum. No atrial mass or thrombus. Right Atrium Normal sized right atrium. Intact atrial septum. No atrial mass or thrombus. Mitral Valve Deceleration time: 261.56 msec Thickened mitral valve leaflets. Mild (1+) mitral regurgitation. No mitral stenosis. No masses or vegetations seen. Aortic Valve AV VTI: 53.02 Area continuity: 1.13 Peak velocity: 2.38 m/s cm cm^2 Peak gradient: 22.63 LVOT VTI: 23.85 Mean velocity: 1.76 mmHg cm m/s Mean gradient: 13.56 mmHg Sclerotic aortic valve leaflets. Mildly thickend free edges of the aortic valve leaflets. No aortic regurgitation. No aortic stenosis. No masses or vegetations seen. Tricuspid Valve TR velocity: 2.51 m/s TR gradient: 25.09791 mmHg Estimated RAP: 3 mmHg RVSP: 28.12 mmHg Structurally normal tricuspid valve. Trace tricuspid valve regurgitation. No tricuspid stenosis. No masses or vegetations seen. Pulmonic Valve Acceleration time: 110.37 msec PASP: 28.12 mmHg Structurally normal pulmonic valve. Trace pulmonary valve regurgitation. No pulmonic stenosis. No masses or vegetations seen. Great Vessels Aorta Aortic Root: 2.7 cm LVOT Diameter: 1.79 cm Visualized thoracic aorta is normal. Normal aortic root. No evidence of dissection. Normal IVC with appropriate collapse. Pericardium / Pleura Trivial pericardial effusion measuring 0.3cm. posteriorly. Other Ascites noted in subcostal imaging. Sodium Date Value Ref Range Status 12/09/2024 148 (H) 136 - 145 meq/L Final Potassium Date Value Ref Range Status 12/09/2024 3.6 3.4 - 5.1 meq/L Final Chloride Date Value Ref Range Status 12/09/2024 116 (H) 98 - 112 meq/L Final CO2 Date Value Ref Range Status 12/09/2024 23 22 - 29 meq/L Final BUN Date Value Ref Range Status 12/09/2024 77.3 (H) 9.8 - 20.1 mg/dL Final Creatinine Date Value Ref Range Status 12/09/2024 2.82 (H) 0.57 - 1.11 mg/dL Final eGFR (mL/min/1.73m2) Date Value Ref Range Status 12/09/2024 18 (L) >=60 mL/min/1.73m2 Final Calcium Date Value Ref Range Status 12/09/2024 8.7 8.4 - 10.2 mg/dL Final WBC Date Value Ref Range Status 12/09/2024 2.4 (L) 4.0 - 10.0 K/??L Final 12/08/2024 3.1 (L) 4.0 - 10.0 K/??L Final RBC Date Value Ref Range Status 12/09/2024 2.83 (L) 3.93 - 5.22 M/??L Final 12/08/2024 2.84 (L) 3.93 - 5.22 M/??L Final Hemoglobin Date Value Ref Range Status 12/09/2024 8.5 (L) 11.2 - 15.7 GM/DL Final 12/08/2024 8.7 (L) 11.2 - 15.7 GM/DL Final Hematocrit Date Value Ref Range Status 12/09/2024 28.0 (L) 34.1 - 44.9 % Final 12/08/2024 28.2 (L) 34.1 - 44.9 % Final Platelets Date Value Ref Range Status 12/09/2024 55 (L) 140 - 375 K/CU MM Final 12/08/2024 54 (L) 140 - 375 K/CU MM Final No results found for: TSH , MAGNESIUM .[facility] Lab Results Component Value Date K 3.6 12/09/2024 Lab Results Component Value Date CREATININE 2.82 (H) 12/09/2024 No results found for: TSH No results found for: MAGNESIUM No results found for: AST , ALT Echo Results (last 7 days) Procedure Component Value Units Date/Time ECHO COMPLETE (DOPPLER / COLOR) W OR WO CONTRAST [[id number]] Collected: 11/30/24 0725 Order Status: Completed Updated: 11/30/24 1046 Narrative: TRANSTHORACIC ECHOCARDIOGRAPHY REPORT Demographics Patient Name: RIN JONES : 1960 Age: 64 year(s) Corporate ID Number: [id number] Gender Female Container Repairer: Giovanna Rock Height: 67 inches [facility] Referring Physician: HUEY HURTADO Weight: 225 pounds Interpreting JESSICA RAYMOND MD BMI: 35.24 kg/m^2 Physician: Date of Service: 11/30/2024 Blood Pressure: 118/59 mmHg Room Number: 579 Type of Study: TTE procedure: ECHO COMPLETE (DOPPLER / COLOR) W OR WO CONTRAST. Patient Status: Routine IP Study Location: PortableTechnical Quality: Adequate visualization History/Tech Notes: Indication: shortness of breath R06.02 Impression: ######################################## Normal sized left ventricle. Normal left ventricular wall thickness. Visually estimated ejection fraction 55% +/- 5%. Borderline systolic strain pattern. Increased left atrial pressure (Grade II diastolic dysfunction). Sclerotic aortic valve leaflets. Trivial pericardial effusion measuring 0.3cm. posteriorly. ######################################## Measurements Summary: LVEDd: 5.33 cm LVESd: 3.64 cm IVSEd: 0.88 cm AO Root:2.7 cm LVPWd: 0.87 cm Contractility Score Normal Left Ventricular contractility was noted. LV regional wall motion: (0-Not visualized 1-Normal 2-Hypokinesis 3-Akinesis 4-Dyskinesis 5-Aneurysm) Left Ventricle Peak E-wave: 1.31 Peak A-wave: 1.35 m/s E/A ratio: 0.97 m/s Volume [id number] LV length: 8.51 cm ml Volume hjwgcipz27.96 ml LVOT diameter: 1.79 cm Normal sized left ventricle. Normal left ventricular wall thickness. Visually estimated ejection fraction 55% +/- 5%. Borderline systolic strain pattern. Increased left atrial pressure (Grade II diastolic dysfunction). No left ventricular masses or thrombi. Right Ventricle Diastolic dimension: 3.92 RV systolic pressure: 28.12 mmHg cm Normal sized right ventricle. Normal TAPSE c/w normal right ventricular function Left Atrium LA dimension: 4 cm LA volume:83.13 ml LA/Aorta: 1.48 Abnormal left atrial volume index 39 ml/m^2. Intact atrial septum. No atrial mass or thrombus. Right Atrium Normal sized right atrium. Intact atrial septum. No atrial mass or thrombus. Mitral Valve Deceleration time: 261.56 msec Thickened mitral valve leaflets. Mild (1+) mitral regurgitation. No mitral stenosis. No masses or vegetations seen. Aortic Valve AV VTI: 53.02 Area continuity: 1.13 Peak velocity: 2.38 m/s cm cm^2 Peak gradient: 22.63 LVOT VTI: 23.85 Mean velocity: 1.76 mmHg cm m/s Mean gradient: 13.56 mmHg Sclerotic aortic valve leaflets. Mildly thickend free edges of the aortic valve leaflets. No aortic regurgitation. No aortic stenosis. No masses or vegetations seen. Tricuspid Valve TR velocity: 2.51 m/s TR gradient: 25.97072 mmHg Estimated RAP: 3 mmHg RVSP: 28.12 mmHg Structurally normal tricuspid valve. Trace tricuspid valve regurgitation. No tricuspid stenosis. No masses or vegetations seen. Pulmonic Valve Acceleration time: 110.37 msec PASP: 28.12 mmHg Structurally normal pulmonic valve. Trace pulmonary valve regurgitation. No pulmonic stenosis. No masses or vegetations seen. Great Vessels Aorta Aortic Root: 2.7 cm LVOT Diameter: 1.79 cm Visualized thoracic aorta is normal. Normal aortic root. No evidence of dissection. Normal IVC with appropriate collapse. Pericardium / Pleura Trivial pericardial effusion measuring 0.3cm. posteriorly. Other Ascites noted in subcostal imaging. Assessment and Plan: *Paroxysmal Atrial Fib [id number] of 3 to 4 also have some wide-complex tachycardia aberrancy versus nonsustained VT longest about 10 beats echocardiogram showed normal EF in November 2024 patient seemsasymptomatic *Non-alcoholic Liver Cirrhosis decompensated with ascites status post paracentesis 6 L removed on 11/30/2024 also underwent an EGD that shows duodenal ulcer but no evidence of active bleeding *CAD *Diabetes mellitus *HTN *HLD *pancytopenia *GERMÁN current GFR 15. Plan: 12/10/2024 Labs and telemetry reviewed. Patient has nonsustained PAC however there is no A- fib. Will check liver enzymes and magnesium. 12/08/2024 Labs and telemetry reviewed. Kidney function remains quite impaired. Patient cannot take anticoagulation for A-fib despite [id number] because of multiple issue including GI bleeding pancytopenia due to arthritis of bleeding. 12/07/2024 Labs and telemetry reviewed. Patient maintained sinus rhythm. Keep amiodarone 200 mg twice a day for 1 month then 200 mg daily. 12/06/2024 Labs and telemetry reviewed. No arrhythmia overnight. Continue amiodarone loading. 12/05/2024 Labs and telemetry reviewed. Patient remains in sinus rhythm. Stop IV amiodarone. Transfer on the floor. Continue p.o. amiodarone 12/04/2024 Labs and telemetry reviewed. Patient had no arrhythmia overnight. Antiarrhythmic logan we are limited with kidney failure. Will do low-dose of amiodarone for now g even though she has some liver failure. Will use low-dose and monitor liver enzymes. 12/03/2024 Labs and telemetry reviewed. Keep electrolytes within normal limit. Patient received a bolus of amiodarone that converted her. If further arrhythmia can always do bolus drip of amiodarone however concern is due to liver function. Further recommendations pending testing results, clinical course, and response to therapy. * Blanka Malagon MD - 12/10/2024 6:28 AM EDT Images from the original note were not included. PULMONARY AND CRITICAL CARE Consult Note Date of Service: 12/10/2024 HPI: This is a 64 y.o. year old female with past medical history as below. She initially presented to [facility] with swollen abdomen, abdominal discomfort, and bilateral lower extremity pain. Her creatinine was elevated and as a result, she was transferred to [facility] for he patorenal syndrome. Upon arrival here, she endorsed a 4-week history of shortness of breath, orthopnea, and ataxia along with the abdominal and lower extremity edema. She also endorsed recent black, tarry stools as well. Upon arrival here, labs of significance included WBC 1.9, platelets 64, creatinine 4.15, and CK 356. She underwent a paracentesis on 11/30 with 6 liters removed. EGD on 12/01 revealed a duodenal ulcer, but no evidence of active bleeding. She underwent a bone marrow biopsy on 12/02 and pathology result is still pending. On 12/03, she began having atrial fib with some runs of non-sustained v. tach. She is currently beingtransferred to the unit and Pulmonary has been consulted for critical care management. 12/04 I have seen and examined the patient this morning, her sister at bedside, have discussed with the patient and his sister about the patient condition answered all the questions and concerns, theyexpressed transcending, discussed with nephrology about the patient condition and plan, chest x-shawna 12/04 interpreted independently showed low lung volume bilaterally with worsening pulmonary edemaand vascular congestion, on nasal cannula 3 L oxygen saturation 95%, respiratory 27, pressure 140/65, pulse 86, temperature 98.2, ABG 7.29/43/100/6 with bicarb of 21, hemoglobin 9, platelets 65, WBC 4.1, sodium 146, creatinine 3.38, fluid balance +300 mL, on ceftriaxone. 12/06: Seen and examined, 64 years old female, laying in bed, 2 L nasal cannula, never smoker, denies any home oxygen at home, has been complaining of edema in the lower extremities/abdominal girth/ascites 12/07- re consult fore warseing ABG Hypercapnia/altered mental status needing BiPAP. Patient mechanically stable, follows some commandsrepeat ABG/BiPAP. Discussed with nursing team respiratory therapist/primary team 12/08: Seen and examined, 2 L nasal cannula, BiPAP hours until resolved/at night, taking p.o., ABG 7.28, pCO2 51, pO2 157 BiPAP 05/02. Patient refused higher pressure Plan for paracentesis, diuresis Bumex 1 mg twice daily 12/09: Seen examined. Nasal cannula alternating with BiPAP, taking p.o., awake alert oriented, complaining of abdominal distention, IR consulted for paracentesis. 12/10: Seen and examined, ABG improved, pH 7.30, pCO2 49, pO2 119 we will continue BiPAP at night, s/p paracentesis, Bumex 1 mg 3 times daily. Nephrology following, 4 L nasal cannula x-ray mild basilar atelectasis PAST MEDICAL HISTORY: Past Medical History: Diagnosis Date Cirrhosis, non-alcoholic (HCC) Diabetes mellitus (HCC) Hypertension PAST SURGICAL HISTORY: Past Surgical History: Procedure Laterality Date ESOPHAGOGASTRODUODENOSCOPY (EGD),REMOVAL FOREIGN BODY N/A 12/01/2024 Procedure: EGD, WITH FOREIGN BODY REMOVAL; Surgeon: Scott Daley MD; [facility]; Service: Gastroenterology; Laterality: N/A; Allergies: No Known Allergies SOCIAL HISTORY: Social History Tobacco Use Smoking status: Never Passive exposure: Never Smokeless tobacco: Never Substance Use Topics Alcohol use: Never Drug use: Never FAMILY HISTORY: family history is not on file. Review of Systems Constitutional: Positive for malaise/fatigue. Respiratory: Positive for shortness of breath. Negative for cough and sputum production. Cardiovascular: Positive for leg swelling. Negative for chest pain. Gastrointestinal: Negative for abdominal pain, nausea and vomiting. Neurological: Positive for weakness. All other systems reviewed and are negative. Vital Signs Temp: [97.3 ??F (36.3 ??C)-98.4 ??F (36.9 ??C)] 97.3 ??F (36.3 ??C) Pulse: [84-94] 84 Resp: [18-20] 19 BP: (116-172)/(66-95) 116/66 FiO2 (%): [35 %] 35 % Current: Temp: 97.3 ??F (36.3 ??C) Pulse: 84 Resp: 19 BP: 116/66 SpO2: 100 % 24 Hour: BP Min: 116/66 Max: 172/78 Temp Min: 97.3 ??F (36.3 ??C) Max: 98.4 ??F (36.9 ??C) Pulse Min: 84 Max: 94 Resp Min: 18 Max: 20 SpO2 Min: 100 % Max: 100 % Weight Min: 98 kg (216 lb 0.8 oz) Max: 98 kg (216 lb 0.8 oz) Intake/Output: I/O last 3 completed shifts: In: - Out: 1000 [Urine:1000] Physical Exam Constitutional: General: She is not in acute distress. Appearance: She is obese. She is ill-appearing. Comments: BiPAP recommended with nasal cannula HENT: Head: Normocephalic. Nose: Nose normal. Mouth/Throat: Mouth: Mucous membranes are moist. Pharynx: Oropharynx is clear. Eyes: Pupils: Pupils are equal, round, and reactive to light. Cardiovascular: Rate and Rhythm: Normal rate and regular rhythm. Pulses: Normal pulses. Heart sounds: Normal heart sounds. Pulmonary: Effort: Pulmonary effort is normal. No respiratory distress. Breath sounds: Examination of the right-lower field reveals decreased breath sounds. Examination ofthe left-lower field reveals decreased breath sounds. Decreased breath sounds present. Abdominal: General: Bowel sounds are normal. Palpations: Abdomen is soft. Musculoskeletal: Cervical back: Normal range of motion. Right lower leg: Edema present. Left lower leg: Edema present. Skin: General: Skin is warm and dry. Capillary Refill: Capillary refill takes less than 2 seconds. Neurological: Mental Status: She is alert and oriented to person, place, and time. Mental status is at baseline. Psychiatric: Mood and Affect: Mood normal. Behavior: Behavior normal. Vent / O2 Management: FiO2 (%): [35 %] 35 % LABS Results for orders placed or performed during the hospital encounter of 11/30/24 (from the past 24 hours) ABG Status: Abnormal Collection Time: 12/09/24 6:37 AM Result Value Ref Range pH, Arterial 7.28 (L) 7.35 - 7.45 pCO2, Arterial 51 (H) 35 - 45 mm Hg pO2, Arterial 157 (H) 80 - 100 mm Hg HCO3, Arterial 24 20 - 26 mmol/L Base Excess, Arterial -2.6 (L) -2.0 - 2.0 mmol/L O2 Sat, Arterial >99.2 95.0 - 100.0 % CTO2 ARTERIAL 12.3 mmol/L THB ARTERIAL 8.7 (L) 12.0 - 18.0 g/dL [facility] COLLECTION SITE Left Radial Arterial Puncture Yes Blood Gas O2 Delivery Device Cannula Oxygen Flow Rate 4 Blood Gas PT Temperature C 37.0 Sen's Test Acceptable Critical Values Notification Critical Blood gas called to DAYANARA MILES . [place] [id number] and confirmed on12/09/2024 06:51 ABG Number of Draw Attempts 1 FIO2 Blood Gas Temperature Corrected Results No No Glucose, Nova Meter Status: Abnormal Collection Time: 12/09/24 11:17 AM Result Value Ref Range POC-GLUCOSE 173 (H) 70 - 110 mg/dL Laboratory Scientist [id number] Glucose, Nova Meter Status: Abnormal Collection Time: 12/09/24 4:23 PM Result Value Ref Range POC-GLUCOSE 173 (H) 70 - 110 mg/dL Laboratory Scientist [id number] Glucose, Nova Meter Status: Abnormal Collection Time: 12/09/24 7:30 PM Result Value Ref Range POC-GLUCOSE 158 (H) 70 - 110 mg/dL Laboratory Scientist [id number] Glucose, Nova Meter Status: Abnormal Collection Time: 12/10/24 5:52 AM Result Value Ref Range POC-GLUCOSE 162 (H) 70 - 110 mg/dL Laboratory Scientist [id number] Radiology Radiology Results (last day) Procedure Component Value Units Date/Time XR chest AP portable [[id number]] Collected: 12/09/24 0844 Order Status: Completed Updated: 12/09/24 1156 Narrative: PORTABLE CHEST. 12/09/2024 6:35 AM HISTORY: Acute respiratory failure. COMPARISON: December 07, 2024. FINDINGS: The cardiac silhouette is mildly enlarged. The mediastinum is unremarkable. There are low lung volumes. There has been no change in interstitial opacities. There has been slight worsening of bibasilar atelectasis. There is no pneumothorax. Impression: Stable interstitial opacities. Slight worsening of bibasilar atelectasis. Images reviewed, interpreted, and dictated by Dr. Lizzie Myles. Transcribed by Haven Henderson PA-C. Microbiology: Microbiology Results (last 7 days) Procedure Component Value Units Date/Time Fungus Culture W/ROSA MARIA Or Nimisha Ink [[id number]] Collected: 11/30/24 160 Order Status: Completed Specimen: Peritoneal Fluid from Body Fluid Updated: 12/07/24 170 Result No fungus isolated at 1 week. ROSA MARIA Prep No fungal elements seen Narrative: Specimen Description: peritoneal fluid AFB Culture And Stain [[id number]] Collected: 11/30/24 160 Order Status: Completed Specimen: Peritoneal Fluid from Body Fluid Updated: 12/07/24 170 Result No Acid Fast Bacilli isolated at 1 week. AFB Smear No acid fast bacilli seen Narrative: Specimen Description: peritoneal fluid Anaerobic Culture [[id number]] Collected: 11/30/24 1603 Order Status: Completed Specimen: Peritoneal Fluid from Body Fluid Updated: 12/05/24 0634 Result No Anaerobic growth Narrative: Specimen Description: peritoneal fluid Blood Culture [[id number]] Collected: 11/30/24 0340 Order Status: Completed Specimen: Blood from Arm, Left Updated: 12/05/24 0501 Result No growth in 5 days Blood Culture [[id number]] Collected: 11/30/24 0342 Order Status: Completed Specimen: Blood from Arm, Right Updated: 12/05/24 0501 Result No growth in 5 days Body Fluid Culture + Gram Stain [[id number]] Collected: 11/30/24 1603 Order Status: Completed Specimen: Peritoneal Fluid from Body Fluid Updated: 12/03/24 0907 Result No growth Gram Stain Result No organisms seen No cells seen Narrative: Specimen Description: peritoneal fluid Body Fluid/CSF - Path Review () [[id number]] Collected: 11/30/24 160 Order Status: Completed Specimen: Peritoneal Fluid from Body Fluid Updated: 12/03/24 0654 SENT TO PATHOLOGY FOR REVIEW Yes Scan Result Mesothelial cells. MD German 12/02/2024 ECHO Normal sized left ventricle. Normal left ventricular wall thickness. Visually estimated ejection fraction 55% +/- 5%. Borderline systolic strain pattern. Increased left atrial pressure (Grade II diastolic dysfunction). Sclerotic aortic valve leaflets. Trivial pericardial effusion measuring 0.3cm. posteriorly ASSESSMENT: Pulmonary Acute hypoxemic/hypercapnic respiratory failure requiring BiPAP Acute pulmonary edema/ pulmonary vascular congestion Never smoker GI Decompensated cirrhosis, new diagnosis MELD-NA score = 21 Hyperammonemia - improved S/p paracentesis on 11/30 - 6L removed S/p EGD on 12/01 - duodenal ulcer, no evidence of active bleeding Cardiac Grade 2 diastolic dysfunction New-onset atrial fib with non-sustained runs of v. tach - improved, on Amio gtt Renal Acute on chronic kidney disease, baseline unknown Hypernatremia PLAN: Acute hypoxic /hypercapnic respiratory failure likely related to acute pulmonary edema which is most likely related to diastolic heart failure/ Chronic kidney disease/GIORDANO cirrhosis/ascites/volume overload Ultrasound of the liver: November 2024 underlying cirrhosis Paracentesis 11/30/2024: 6 L removed Echo EF 25%, grade 2 diastolic dysfunction, increased left atrial pressure trivial pericardial effusion Chest x-ray. Acute pulmonary edema Interstitial opacity suggestive of volume overload ABG 7.26, pCO2 54, pO2 80 Repeat ABG 7.28, pCO2 51, pO2 157, BiPAP 10/6, FiO2 35% alternating with 2 L nasal cannula ABG of today 7.30, pCO2 49, pO2 119, will change. BiPAP nightly use only Diurese with Bumex increased dose 1 mg 3 times daily planning for paracentesis Augmentin broad-spectrum antibiotic Repeated ABG improvement, repeat chest x-ray improvement Picture of volume overload likely related to combination of acute diastolic heart failure/renal failure/ascites with volume overload anasarca/pericardial effusion/ascites/lower extremity edema Nephrology following, recommended to continue with albumin/diuretics no indication for PHARMACOMETRICIAN No significant pleural effusion for thoracentesis If needed repeat chest x-ray. Otherwise continue diuresis Pulmonary continue to follow Case discussed during round. I have personally evaluated the patient and performed a [id number] diagnostic evaluation on this patient; I have reviewed history, performed physical examination, reviewed laboratory studies. , andreviewed images independent of radiologist. I have actively directed the medical care, formulated assessemnt and plan of care. Patient requires a high complexity of decision making for assessment. 34 minutes critical care time was spent. Voice moss bleacher technology ([employer]) is used for dictation of this note and sound-alike words might be erroneously placed despite reviewing the note for accuracy.Errors in dictation may reflect use of voice recognition software and not all errors in moss bleacher may have been detectedprior to signing * Tori Kamara RN - 12/09/2024 4:00 PM EDT MD Mcfadden approved patient to go to US Paracentesis unmonitored. * Alvina Barragan, PHILLIP - 12/09/2024 2:22 PM EDT Images from the original note were not included. Inpatient Physical Therapy Attempt to Treat Patient Name: Mary Coronel Birthday: 1960 Date of Attempt: 12/09/2024 RN at bedside. Pt currently bipap dependent and possibly going for a paracentesis as she reports she has worsening abdominal fluid collection. RN reports she does not feel pt can tolerate activity right now, pt shook head no to indicate she was not up for PT. Will continue to follow. Electronically signed by Alvina Barragan, PT - 12/09/2024 - 4:29 PM EDT * Mary Carmen Mcfadden MD - 12/09/2024 12:27 PM EDT Subjective Patient respiratory distress Abdominal distention On BiPAP more awake Patient shortness of breath generalized weakness No nausea or vomiting No fever Last Recorded Vitals Blood pressure (!) 156/74, pulse 94, temperature 97.7 ??F (36.5 ??C), temperature source Oral, resp. rate 18, height 1.676 m (5' 6 ), weight 98.2 kg (216 lb 6.4 oz), SpO2 100%. Physical Exam Head atraumatic normocephalic Pupils round and reactive Eyes no conjunctival injection or discharge Ears no discharge Nose no bleeding or discharge Mouth dry Neck supple full range of motion Chest Diminished in the bilateral breath expiratory wheezes Heart S1 and S2 healed regular rate Abdomen soft audible bowel sounds no tenderness Abdomen distended Extremities no edema erythema or tenderness Neurological patient alert awake move extremities Psychiatric anxiety Skin no apparent rashes Endocrine no thyromegaly tenderness General Patient in bed mild distress Labs: Results for orders placed or performed during the hospital encounter of 11/30/24 (from the past 24 hours) Glucose, Nova Meter Status: Abnormal Collection Time: 12/08/24 3:34 PM Result Value Ref Range POC-GLUCOSE 159 (H) 70 - 110 mg/dL Laboratory Scientist [id number] Glucose, Nova Meter Status: Abnormal Collection Time: 12/08/24 8:08 PM Result Value Ref Range POC-GLUCOSE 172 (H) 70 - 110 mg/dL Laboratory Scientist [id number] Basic Metabolic Panel Status: Abnormal Collection Time: 12/09/24 3:38 AM Result Value Ref Range Sodium 148 (H) 136 - 145 meq/L Potassium 3.6 3.4 - 5.1 meq/L CO2 23 22 - 29 meq/L Chloride 116 (H) 98 - 112 meq/L Glucose 146 (H) 82 - 115 mg/dL BUN 77.3 (H) 9.8 - 20.1 mg/dL Creatinine 2.82 (H) 0.57 - 1.11 mg/dL BUN/Creatinine 27 (H) 8 - 20 Calcium 8.7 8.4 - 10.2 mg/dL Anion Gap 13 (H) 4 - 12 eGFR (mL/min/1.73m2) 18 (L) >=60 mL/min/1.73m2 Osmolality Calc 320.0 mOsm/kg CBC - [facility] Status: Abnormal Collection Time: 12/09/24 3:38 AM Result Value Ref Range WBC 2.4 (L) 4.0 - 10.0 K/??L RBC 2.83 (L) 3.93 - 5.22 M/??L Hemoglobin 8.5 (L) 11.2 - 15.7 GM/DL Hematocrit 28.0 (L) 34.1 - 44.9 % MCV 99 (H) 79 - 95 fL MCH 30.0 25.6 - 32.2 pg MCHC 30.4 (L) 32.2 - 35.5 GM/DL RDW 17.2 (H) 11.7 - 14.4 % Platelets 55 (L) 140 - 375 K/CU MM MPV 11.5 9.4 - 12.3 fL Glucose, Nova Meter Status: Abnormal Collection Time: 12/09/24 5:45 AM Result Value Ref Range POC-GLUCOSE 148 (H) 70 - 110 mg/dL Laboratory Scientist [id number] ABG Status: Abnormal Collection Time: 12/09/24 6:37 AM Result Value Ref Range pH, Arterial 7.28 (L) 7.35 - 7.45 pCO2, Arterial 51 (H) 35 - 45 mm Hg pO2, Arterial 157 (H) 80 - 100 mm Hg HCO3, Arterial 24 20 - 26 mmol/L Base Excess, Arterial -2.6 (L) -2.0 - 2.0 mmol/L O2 Sat, Arterial >99.2 95.0 - 100.0 % CTO2 ARTERIAL 12.3 mmol/L THB ARTERIAL 8.7 (L) 12.0 - 18.0 g/dL [facility] S[facility] Left Radial Arterial Puncture Yes Blood Gas O2 Delivery Device Cannula Oxygen Flow Rate 4 Blood Gas PT Temperature C 37.0 Sen's Test Acceptable Critical Values Notification Critical Blood gas called to DAYANARA MILES . [place] [id number] and confirmed on12/09/2024 06:51 ABG Number of Draw Attempts 1 FIO2 Blood Gas Temperature Corrected Results No No Glucose, Nova Meter Status: Abnormal Collection Time: 12/09/24 11:17 AM Result Value Ref Range POC-GLUCOSE 173 (H) 70 - 110 mg/dL Laboratory Scientist [id number] XR chest AP portable Narrative: PORTABLE CHEST. 12/09/2024 6:35 AM HISTORY: Acute respiratory failure. COMPARISON: December 07, 2024. FINDINGS: The cardiac silhouette is mildly enlarged. The mediastinum is unremarkable. There are low lung volumes. There has been no change in interstitial opacities. There has been slight worsening of bibasilar atelectasis. There is no pneumothorax. Impression: Stable interstitial opacities. Slight worsening of bibasilar atelectasis. Images reviewed, interpreted, and dictated by Dr. Lizzie Myles. Transcribed by Haven Henderson PA-C. Assessment Anasarca Paroxysmal Atrial Fib *CAD *Diabetes mellitus *HTN *HLD *pancytopenia *GERMÁN current GFR 15. Nonalcoholic liver cirrhosis with ascites Ascites Status post paracentesis Duodenal ulcer Anasarca Diabetes mellitus Acute renal failure 12/09/2024 Plan PT OT Monitor kidney function Creatinine improving No emergent dialysis Labs in a.m. Patient today on BiPAP Repeat blood gas pulmonary following Patient with ascites Will schedule paracentesis Blas catheter will be placed Discharge Planning: Patient will need paracentesis today Patient not ready to be discharged blood gas ordered Pending blood gas improvement And more awake education general manager working discharge plan * Tori Kamara RN - 12/09/2024 9:34 AM EDT MD Mcfadden notified that patient has not been voiding on her own. * Hill Boo MD - 12/09/2024 9:26 AM EDT Subjective No acute events overnight. No new complain Review of Systems No CP, SOA, N/V, fever, chills or rash Objective Last Recorded Vitals Blood pressure (!) 156/74, pulse 94, temperature 97.7 ??F (36.5 ??C), temperature source Oral, resp. rate 18, height 1.676 m (5' 6 ), weight 98.2 kg (216 lb 6.4 oz), SpO2 100%. Physical Exam Gen: Alert, NAD HEENT: NC, AT Neck: Supple, no JVD Lungs: CTA. Non labored, symetrical chest expansion CVS: SI/S2 audible. RRR, No M/G noted Abd: soft, NT, ND, BS + Ext: +++ Pedal edema , no cyanosis WALLPAPERER HELPER: Alert, No focal deficit noted grossly Psy: Cooperative Labs: Results for orders placed or performed during the hospital encounter of 11/30/24 (from the past 24 hours) Glucose, Nova Meter Status: Abnormal Collection Time: 12/08/24 10:57 AM Result Value Ref Range POC-GLUCOSE 191 (H) 70 - 110 mg/dL Laboratory Scientist [id number] Glucose, Nova Meter Status: Abnormal Collection Time: 12/08/24 3:34 PM Result Value Ref Range POC-GLUCOSE 159 (H) 70 - 110 mg/dL Laboratory Scientist [id number] Glucose, Nova Meter Status: Abnormal Collection Time: 12/08/24 8:08 PM Result Value Ref Range POC-GLUCOSE 172 (H) 70 - 110 mg/dL Laboratory Scientist [id number] Basic Metabolic Panel Status: Abnormal Collection Time: 12/09/24 3:38 AM Result Value Ref Range Sodium 148 (H) 136 - 145 meq/L Potassium 3.6 3.4 - 5.1 meq/L CO2 23 22 - 29 meq/L Chloride 116 (H) 98 - 112 meq/L Glucose 146 (H) 82 - 115 mg/dL BUN 77.3 (H) 9.8 - 20.1 mg/dL Creatinine 2.82 (H) 0.57 - 1.11 mg/dL BUN/Creatinine 27 (H) 8 - 20 Calcium 8.7 8.4 - 10.2 mg/dL Anion Gap 13 (H) 4 - 12 eGFR (mL/min/1.73m2) 18 (L) >=60 mL/min/1.73m2 Osmolality Calc 320.0 mOsm/kg CBC - [facility]) Status: Abnormal Collection Time: 12/09/24 3:38 AM Result Value Ref Range WBC 2.4 (L) 4.0 - 10.0 K/??L RBC 2.83 (L) 3.93 - 5.22 M/??L Hemoglobin 8.5 (L) 11.2 - 15.7 GM/DL Hematocrit 28.0 (L) 34.1 - 44.9 % MCV 99 (H) 79 - 95 fL MCH 30.0 25.6 - 32.2 pg MCHC 30.4 (L) 32.2 - 35.5 GM/DL RDW 17.2 (H) 11.7 - 14.4 % Platelets 55 (L) 140 - 375 K/CU MM MPV 11.5 9.4 - 12.3 fL Glucose, Nova Meter Status: Abnormal Collection Time: 12/09/24 5:45 AM Result Value Ref Range POC-GLUCOSE 148 (H) 70 - 110 mg/dL Laboratory Scientist [id number] ABG Status: Abnormal Collection Time: 12/09/24 6:37 AM Result Value Ref Range pH, Arterial 7.28 (L) 7.35 - 7.45 pCO2, Arterial 51 (H) 35 - 45 mm Hg pO2, Arterial 157 (H) 80 - 100 mm Hg HCO3, Arterial 24 20 - 26 mmol/L Base Excess, Arterial -2.6 (L) -2.0 - 2.0 mmol/L O2 Sat, Arterial >99.2 95.0 - 100.0 % CTO2 ARTERIAL 12.3 mmol/L THB ARTERIAL 8.7 (L) 12.0 - 18.0 g/dL [facility] S[facility] Left Radial Arterial Puncture Yes Blood Gas O2 Delivery Device Cannula Oxygen Flow Rate 4 Blood Gas PT Temperature C 37.0 Sen's Test Acceptable Critical Values Notification Critical Blood gas called to DAYANARA MILES . [place] [id number] and confirmed on12/09/2024 06:51 ABG Number of Draw Attempts 1 FIO2 Blood Gas Temperature Corrected Results No No XR chest AP portable Narrative: PORTABLE CHEST. 12/09/2024 6:35 AM HISTORY: Acute respiratory failure. COMPARISON: December 07, 2024. FINDINGS: The cardiac silhouette is mildly enlarged. The mediastinum is unremarkable. There are low lung volumes. There has been no change in interstitial opacities. There has been slight worsening of bibasilar atelectasis. There is no pneumothorax. Impression: Stable interstitial opacities. Slight worsening of bibasilar atelectasis. Images reviewed, interpreted, and dictated by Dr. Lizzie Myles. Transcribed by Haven Henderson PA-C. Recent Labs Lab(s) Units 12/09/24 0545 12/09/24 0338 12/08/24 2008 12/08/24 1534 12/08/24 0608 12/08/24 0410 12/07/24 0551 12/07/24 0359 12/06/24 0526 12/06/24 0313 12/05/24 0800 12/05/24 0320 12/04/24 0335 12/04/24 0334 NA meq/L -- 148* -- -- -- 149* -- 146* -- 146* -- 146* < > 143 K meq/L -- 3.6 -- -- -- 3.6 -- 3.8 -- 3.9 -- 3.6 < > 3.7 CL meq/L -- 116* -- -- -- 116* -- 118* -- 116* -- 117* < > 115* CO2 meq/L -- 23 -- -- -- 23 -- 20* -- 20* -- 20* < > 20* BUN mg/dL -- 77.3* -- -- -- 76.4* -- 72.9* -- 63.3* -- 59.4* < > 58.6* CREATININE mg/dL -- 2.82* -- -- -- 2.92* -- 3.13* -- 3.37* -- 3.14* < > 3.43* ALBUMIN g/dL -- -- -- -- -- -- -- 4.1 -- 4.6 -- 4.3 -- 4.2 GLUCOSE mg/dL 148* 146* 172* 159* < > 160* < > 166* < > 149* < > 148* < > 203* CALCIUM mg/dL -- 8.7 -- -- -- 8.7 -- 8.4 -- 8.6 -- 8.3* < > 8.3* WBC K/ L -- 2.4* -- -- -- 3.1* -- 3.5* -- 7.0 -- 4.2 < > -- PLT K/CU MM -- 55* -- -- -- 54* -- 54* -- 80* -- 60* < > -- HGB GM/DL -- 8.5* -- -- -- 8.7* -- 7.9* -- 8.7* < > 8.2* < > -- < > = values in this interval not displayed. Intake/Output Summary (Last 24 hours) at 12/09/2024 0959 Last data filed at 12/09/2024 0300 Gross per 24 hour Intake -- Output 1000 ml Net -1000 ml Assessment 1- Anasarca - liver disease and low albumin level plus NSAID for one month 2- GERMÁN on CKD - Unknown baseline - on Lisinopril at home. Third spacing and recently increased doseof diuretics. Pre-renal azotemia - On lisinopril and NSAID and recently increased dose of diureticswith low albumin level vs HRS- Feurea 27% suggestive of pre-renal azotemia SFLC ratio 1.4, JEANA (-) ANCA (-) MPO(-), PR3(-) 4- Pancytopenia -Hematology following - S/p EGD 12/01/24showing duodenal ulcer and small varices. S/pbone marrow biopsy 5- hx of DM 6- HTN 7- NAFLD 8- Ascites Plan: - Continue with diuretics- will increase dose of bumex 1 mg po q tid. Aldactone 12.5 mg po daily - Discussed with Primary team - abdomen distended and tense - will need paracentesis again last Paracentesis 11/30/24 6 lit out. - Place blas catheter - urinary retention noted on bladder scan on 2 occasion. - Monitor I/O strictly - Avoid nephrotoxic agents - no NSAID - Continue to hold Lisinopril and metformin for GERMÁN - Renal diet - Adjust meds per renal function - No emergent need of PHARMACOMETRICIAN - Monitor H/H and transfuse for Hgb less than 7.0 Discussed with patient Follow up with [facility] in 1-2 weeks with renal function panel * KENNEY Zaragoza - 12/09/2024 8:04 AM EDTSummary: Referral Pending Discharge Plan Progress Note Family/Sister prefers [facility]. SW/CM sent referral this AM. Currently pending. [facility] [address] KENNEY Zaragoza * Blanka Malagon MD - 12/09/2024 6:30 AM EDT Images from the original note were not included. PULMONARY AND CRITICAL CARE Consult Note Date of Service: 12/09/2024 HPI: This is a 64 y.o. year old female with past medical history as below. She initially presented to [facility] with swollen abdomen, abdominal discomfort, and bilateral lower extremity pain. Her creatinine was elevated and as a result, she was transferred to [facility] for he patorenal syndrome. Upon arrival here, she endorsed a 4-week history of shortness of breath, orthopnea, and ataxia along with the abdominal and lower extremity edema. She also endorsed recent black, tarry stools as well. Upon arrival here, labs of significance included WBC 1.9, platelets 64, creatinine 4.15, and CK 356. She underwent a paracentesis on 11/30 with 6 liters removed. EGD on 12/01 revealed a duodenal ulcer, but no evidence of active bleeding. She underwent a bone marrow biopsy on 12/02 and pathology result is still pending. On 12/03, she began having atrial fib with some runs of non-sustained v. tach. She is currently beingtransferred to the unit and Pulmonary has been consulted for critical care management. 12/04 I have seen and examined the patient this morning, her sister at bedside, have discussed with the patient and his sister about the patient condition answered all the questions and concerns, theyexpressed transcending, discussed with nephrology about the patient condition and plan, chest x-shawna 12/04 interpreted independently showed low lung volume bilaterally with worsening pulmonary edemaand vascular congestion, on nasal cannula 3 L oxygen saturation 95%, respiratory 27, pressure 140/65, pulse 86, temperature 98.2, ABG 7.29/43/100/6 with bicarb of 21, hemoglobin 9, platelets 65, WBC 4.1, sodium 146, creatinine 3.38, fluid balance +300 mL, on ceftriaxone. 12/06: Seen and examined, 64 years old female, laying in bed, 2 L nasal cannula, never smoker, denies any home oxygen at home, has been complaining of edema in the lower extremities/abdominal girth/ascites 12/07- re consult fore warseing ABG Hypercapnia/altered mental status needing BiPAP. Patient mechanically stable, follows some commandsrepeat ABG/BiPAP. Discussed with nursing team respiratory therapist/primary team 12/08: Seen and examined, 2 L nasal cannula, BiPAP hours until resolved/at night, taking p.o., ABG 7.28, pCO2 51, pO2 157 BiPAP 05/02. Patient refused higher pressure Plan for paracentesis, diuresis Bumex 1 mg twice daily PAST MEDICAL HISTORY: Past Medical History: Diagnosis Date Cirrhosis, non-alcoholic (HCC) Diabetes mellitus (HCC) Hypertension PAST SURGICAL HISTORY: Past Surgical History: Procedure Laterality Date ESOPHAGOGASTRODUODENOSCOPY (EGD),REMOVAL FOREIGN BODY N/A 12/01/2024 Procedure: EGD, WITH FOREIGN BODY REMOVAL; Surgeon: Scott Daley MD; [facility]; Service: Gastroenterology; Laterality: N/A; Allergies: No Known Allergies SOCIAL HISTORY: Social History Tobacco Use Smoking status: Never Passive exposure: Never Smokeless tobacco: Never Substance Use Topics Alcohol use: Never Drug use: Never FAMILY HISTORY: family history is not on file. Review of Systems Constitutional: Positive for malaise/fatigue. Respiratory: Positive for shortness of breath. Negative for cough and sputum production. Cardiovascular: Positive for leg swelling. Negative for chest pain. Gastrointestinal: Negative for abdominal pain, nausea and vomiting. Neurological: Positive for weakness. All other systems reviewed and are negative. Vital Signs Temp: [97.3 ??F (36.3 ??C)-98.5 ??F (36.9 ??C)] 97.7 ??F (36.5 ??C) Pulse: [77-94] 87 Resp: [18-23] 18 BP: (116-178)/(58-83) 143/74 FiO2 (%): [35 %] 35 % Current: Temp: 97.7 ??F (36.5 ??C) Pulse: 87 Resp: 18 BP: (!) 143/74 SpO2: 99 % 24 Hour: BP Min: 116/58 Max: 178/83 Temp Min: 97.3 ??F (36.3 ??C) Max: 98.5 ??F (36.9 ??C) Pulse Min: 77 Max: 94 Resp Min: 18 Max: 23 SpO2 Min: 89 % Max: 100 % Intake/Output: I/O last 3 completed shifts: In: - Out: 1250 [Urine:1250] Physical Exam Constitutional: General: She is not in acute distress. Appearance: She is obese. She is ill-appearing. Comments: BiPAP recommended with nasal cannula HENT: Head: Normocephalic. Nose: Nose normal. Mouth/Throat: Mouth: Mucous membranes are moist. Pharynx: Oropharynx is clear. Eyes: Pupils: Pupils are equal, round, and reactive to light. Cardiovascular: Rate and Rhythm: Normal rate and regular rhythm. Pulses: Normal pulses. Heart sounds: Normal heart sounds. Pulmonary: Effort: Pulmonary effort is normal. No respiratory distress. Breath sounds: Examination of the right-lower field reveals decreased breath sounds. Examination ofthe left-lower field reveals decreased breath sounds. Decreased breath sounds present. Abdominal: General: Bowel sounds are normal. Palpations: Abdomen is soft. Musculoskeletal: Cervical back: Normal range of motion. Right lower leg: Edema present. Left lower leg: Edema present. Skin: General: Skin is warm and dry. Capillary Refill: Capillary refill takes less than 2 seconds. Neurological: Mental Status: She is alert and oriented to person, place, and time. Mental status is at baseline. Psychiatric: Mood and Affect: Mood normal. Behavior: Behavior normal. Vent / O2 Management: FiO2 (%): [35 %] 35 % LABS Results for orders placed or performed during the hospital encounter of 11/30/24 (from the past 24 hours) Blood gas, arterial Status: Abnormal Collection Time: 12/08/24 7:13 AM Result Value Ref Range pH, Arterial 7.26 (L) 7.35 - 7.45 pCO2, Arterial 54 (H) 35 - 45 mm Hg pO2, Arterial 80 80 - 100 mm Hg HCO3, Arterial 24 20 - 26 mmol/L Base Excess, Arterial -2.9 (L) -2.0 - 2.0 mmol/L O2 Sat, Arterial 96.7 95.0 - 100.0 % CTO2 ARTERIAL 11.8 mmol/L THB ARTERIAL 8.8 (L) 12.0 - 18.0 g/dL [facility] Right Brachial Arterial Puncture Yes Blood Gas O2 Delivery Device Cannula Oxygen Flow Rate 4 Blood Gas PT Temperature C 37.0 Sen's Test Not Applicable Critical Values Notification Critical Blood gas called to KNOWN CONDITION . Results acknowledged/read back to [id number] and confirmed on 12/08/2024 07:30 ABG Number of Draw Attempts 1 FIO2 Blood Gas Temperature Corrected Results No No Glucose, Nova Meter Status: Abnormal Collection Time: 12/08/24 10:57 AM Result Value Ref Range POC-GLUCOSE 191 (H) 70 - 110 mg/dL Laboratory Scientist [id number] Glucose, Nova Meter Status: Abnormal Collection Time: 12/08/24 3:34 PM Result Value Ref Range POC-GLUCOSE 159 (H) 70 - 110 mg/dL Laboratory Scientist [id number] Glucose, Nova Meter Status: Abnormal Collection Time: 12/08/24 8:08 PM Result Value Ref Range POC-GLUCOSE 172 (H) 70 - 110 mg/dL Laboratory Scientist [id number] Basic Metabolic Panel Status: Abnormal Collection Time: 12/09/24 3:38 AM Result Value Ref Range Sodium 148 (H) 136 - 145 meq/L Potassium 3.6 3.4 - 5.1 meq/L CO2 23 22 - 29 meq/L Chloride 116 (H) 98 - 112 meq/L Glucose 146 (H) 82 - 115 mg/dL BUN 77.3 (H) 9.8 - 20.1 mg/dL Creatinine 2.82 (H) 0.57 - 1.11 mg/dL BUN/Creatinine 27 (H) 8 - 20 Calcium 8.7 8.4 - 10.2 mg/dL Anion Gap 13 (H) 4 - 12 eGFR (mL/min/1.73m2) 18 (L) >=60 mL/min/1.73m2 Osmolality Calc 320.0 mOsm/kg CBC - Hemogram ([facility]) Status: Abnormal Collection Time: 12/09/24 3:38 AM Result Value Ref Range WBC 2.4 (L) 4.0 - 10.0 K/??L RBC 2.83 (L) 3.93 - 5.22 M/??L Hemoglobin 8.5 (L) 11.2 - 15.7 GM/DL Hematocrit 28.0 (L) 34.1 - 44.9 % MCV 99 (H) 79 - 95 fL MCH 30.0 25.6 - 32.2 pg MCHC 30.4 (L) 32.2 - 35.5 GM/DL RDW 17.2 (H) 11.7 - 14.4 % Platelets 55 (L) 140 - 375 K/CU MM MPV 11.5 9.4 - 12.3 fL Glucose, Nova Meter Status: Abnormal Collection Time: 12/09/24 5:45 AM Result Value Ref Range POC-GLUCOSE 148 (H) 70 - 110 mg/dL Laboratory Scientist [id number] Radiology Radiology Results (last day) No results found for the last 24 hours. Microbiology: Microbiology Results (last 7 days) Procedure Component Value Units Date/Time Fungus Culture W/ROSA MARIA Or Nimisha Ink [[id number]] Collected: 11/30/24 160 Order Status: Completed Specimen: Peritoneal Fluid from Body Fluid Updated: 12/07/24 170 Result No fungus isolated at 1 week. ROSA MARIA Prep No fungal elements seen Narrative: Specimen Description: peritoneal fluid AFB Culture And Stain [[id number]] Collected: 11/30/24 160 Order Status: Completed Specimen: Peritoneal Fluid from Body Fluid Updated: 12/07/24 1700 Result No Acid Fast Bacilli isolated at 1 week. AFB Smear No acid fast bacilli seen Narrative: Specimen Description: peritoneal fluid Anaerobic Culture [[id number]] Collected: 11/30/24 160 Order Status: Completed Specimen: Peritoneal Fluid from Body Fluid Updated: 12/05/24 0634 Result No Anaerobic growth Narrative: Specimen Description: peritoneal fluid Blood Culture [[id number]] Collected: 11/30/24 0340 Order Status: Completed Specimen: Blood from Arm, Left Updated: 12/05/24 0501 Result No growth in 5 days Blood Culture [[id number]] Collected: 11/30/24 0342 Order Status: Completed Specimen: Blood from Arm, Right Updated: 12/05/24 0501 Result No growth in 5 days Body Fluid Culture + Gram Stain [[id number]] Collected: 11/30/24 1603 Order Status: Completed Specimen: Peritoneal Fluid from Body Fluid Updated: 12/03/24 0907 Result No growth Gram Stain Result No organisms seen No cells seen Narrative: Specimen Description: peritoneal fluid Body Fluid/CSF - Path Review () [[id number]] Collected: 11/30/24 1603 Order Status: Completed Specimen: Peritoneal Fluid from Body Fluid Updated: 12/03/24 0654 SENT TO PATHOLOGY FOR REVIEW Yes Scan Result Mesothelial cells. MD German 12/02/2024 ECHO Normal sized left ventricle. Normal left ventricular wall thickness. Visually estimated ejection fraction 55% +/- 5%. Borderline systolic strain pattern. Increased left atrial pressure (Grade II diastolic dysfunction). Sclerotic aortic valve leaflets. Trivial pericardial effusion measuring 0.3cm. posteriorly ASSESSMENT: Pulmonary Acute hypoxemic/hypercapnic respiratory failure requiring BiPAP Acute pulmonary edema/ pulmonary vascular congestion Never smoker GI Decompensated cirrhosis, new diagnosis MELD-NA score = 21 Hyperammonemia - improved S/p paracentesis on 11/30 - 6L removed S/p EGD on 12/01 - duodenal ulcer, no evidence of active bleeding Cardiac Grade 2 diastolic dysfunction New-onset atrial fib with non-sustained runs of v. tach - improved, on Amio gtt Renal Acute on chronic kidney disease, baseline unknown Hypernatremia PLAN: Acute hypoxic /hypercapnic respiratory failure likely related to acute pulmonary edema which is most likely related to diastolic heart failure/ Chronic kidney disease/GIORDANO cirrhosis/ascites/volume overload Ultrasound of the liver: November 2024 underlying cirrhosis Paracentesis 11/30/2024: 6 L removed Echo EF 25%, grade 2 diastolic dysfunction, increased left atrial pressure trivial pericardial effusion Chest x-ray. Acute pulmonary edema Interstitial opacity suggestive of volume overload ABG 7.26, pCO2 54, pO2 80 Repeat ABG 7.28, pCO2 51, pO2 157, BiPAP 10/6, FiO2 35% alternating with 2 L nasal cannula Diurese with Bumex increased dose 1 mg 3 times daily planning for paracentesis Augmentin broad-spectrum antibiotic Repeating ABG, chest x-ray a.m. Picture of volume overload likely related to combination of acute diastolic heart failure/renal failure/ascites with volume overload anasarca/pericardial effusion/ascites/lower extremity edema Nephrology following, recommended to continue with albumin/diuretics no indication for PHARMACOMETRICIAN No significant pleural effusion for thoracentesis If needed repeat chest x-ray. Otherwise continue diuresis Pulmonary twill follow . If ABG not improving ,or worsening mental status recommended ICU Case discussed during round. I have personally evaluated the patient and performed a [id number] diagnostic evaluation on this patient; I have reviewed history, performed physical examination, reviewed laboratory studies. , andreviewed images independent of radiologist. I have actively directed the medical care, formulated assessemnt and plan of care. Patient requires a high complexity of decision making for assessment. 34 minutes critical care time was spent. Voice moss bleacher technology ([employer]) is used for dictation of this note and sound-alike words might be erroneously placed despite reviewing the note for accuracy.Errors in dictation may reflect use of voice recognition software and not all errors in moss bleacher may have been detectedprior to signing * Virginia Haynes RN - 12/08/2024 5:47 PM EDT Mary Kay chong provided care and documentation on patient with my assistance. Patient has done well, sat up in chair for several hours, did wear bipap as instructed with two hours on and off, and wearing while asleep. Some nausea and dry heaving noted. And some complaints of severe back pain. Medicated per mar with no relief from back pain, notified md and orders obtained. Rings out as needed. Blas was removed this shift. * KENNEY Zaragoza - 12/08/2024 1:33 PM EDTSummary: Pending Medical Readiness for SNF - Bed Offer with [facility] Discharge Plan Progress Note SW/MANGO updated Rama T with [facility] regarding patient's ICU transfer cancellation.CM to follow up with Rama on 12/09 with updated PT/OT notes, MD progress notes of patients care, BiPaP/RT plan. [facility] is still offering bed for patient. [facility] will be needed, [facility] SW/CM has attempted to call patient's sister, Jojo Dominguez x3 times, at # listed, , however, CM is experiencing phone issues and unable to call out. CM has informed bedside RN and INCLUSION TEACHER via [email or web address] Chat. KENNEY Zaragoza * KENNEY Zaragoza - 12/08/2024 1:29 PM EDTSummary: CM Assessment Care Coordination Initial Assessment Patient's readmit score is low at 12%. CM plan was to DC home/independent at baseline or with family/sister assistance. Sister, Jojo, stated she cannot care for patient if patient was to come homewith her, and patient needed rehab. CM sent referrals, patient had bed offers, [facility] offered bed first and was closest to patient's home address. Just as precert was to begin, patient went into increased respiratory distress, and became lethargic. Anticipated transfer to ICU, precert was canceled, however, patient became stabilized and now is on BiPaP. CM discharge planning is in progress, but DC goal is to rehab prior to returning home. Home Environment Type of Residence: Private residence Living Arrangements: Alone Support System: Family members Home Caregiver: (P) None Accessibility Issues: (P) None Current Agency Name & Number: NA Patient returning to prior living situation? (P) Unknown Compliance: (P) Patient has moderate rate of compliance with treatment. Motivation: (P) Patient has moderate desire for learning/change. Affect/Behavior: (P) Appropriate Prior/Regular Transportation: (P) Family Current Transportation Agency Information: Needs assistance with transportation:(P) Yes ADL Screen Current Sensory Deficits: Patient's Vision Adequate to Safely complete ADLs:(P) Yes Patient's Judgement Adequate to safely completed ADLs: (P) No Dressing: (P) Independent Current Home Care Services: Current Home Care Services: (P) None, Other (Comment) (Sister reports being patients cargiver, however, patient lives alone) Assistive Devices(P) Yes Patient's Judgement Adequate to Safely Complete Daily Activities: (P) No Dressing: (P) Independent Current Lines, Tubes: (P) 3L/min OR Special/Community Services: (P) Transport, discharge, Home, assistance Transition Needs Expected Discharge Date: Off Track GMLOS, TBD - 12/10-12/12 Home or Post Acute Services Needed: (P) Post acute facilities (Rehab/SNF/etc) Does the patient have the ability to fill and receive their discharge medications: (P) Yes Discharge plan discussed: (P) The discharge plan was discussed with patient sales donor recruitment representative. Discharge Barriers: (P) Test(s) Pending, Activity Type of Assistive Devices Needed for Discharge: (P) None Patient Discharge Goal: (P) Inpatient Rehab Facility, [facility]dc Facility Mandated Reporting: (P) Not applicable PT/OT/CUTTER V GROOVE Recommendations PT Recommendations: Pending Hospital Stay OT Recommendations: Pending Hospital Stay CUTTER V [facility] Recommendations: NA 12/08/24 1327 Home Environment Type of Residence Private residence Living Arrangements Alone Support Systems Family members Home Caregiver None Accessibilty Issues None Patient returning to prior living situation? Unknown Adherence Patient has moderate rate of compliance with treatment. Motivation Patient has moderate desire for learning/change. Affect Behavior Appropriate Prior/Regular Transportation Family Needs Assistance with Transportation Yes ADL Assessment Patient's Vision Adequate to Safely Complete Daily Activities 1 Patient's Judgement Adequate to Safely Complete Daily Activities 2 Dressing Independent Current Home Care Services None;Other (Comment) (Sister reports being patients cargiver, however, patient lives alone) Assistive Devices Walker;Commode Current Lines, Tubes 3L/min [place] Special/Community Services Transport, discharge;Home, assistance Transition Needs Home or Post Acute Services Post acute facilities (Rehab/SNF/etc) Type of Post Acute Facility Services [facility];Rehab Does the patient have the ability to fill and receive their discharge medications? Yes Discharge Plan Discussed The discharge plan was discussed with patient sales donor recruitment representative. Discharge Plan Outcome Patient/family sales donor recruitment representative agrees with the discharge plan Discharge Barriers Test(s) Pending;Activity Type of Assistive Devices Needed for Discharge None Patient Discharge Goal Inpatient Rehab Facility;Fdc Facility Mandated Reporting Not applicable KENNEY Zaragoza * Deysi Foss MD - 12/08/2024 11:29 AM EDT EP progress note Patient Name: Mary Coronel Admission Date: 11/30/2024 Primary Care Provider: [facility] Find-a-Doc Chief Complaint/Reason for Consult: No chief complaint on file. History of Present Illness: Mary Coronel is a 64 y.o. female, admitted on: 11/30/2024 1:43 AM. presented to [facility] with swollen abdomen, abdominal discomfort and bilateral lower extremity pitting edema. Patient's BUN/creatinine elevated, and patient subsequently transferred to [facility] for hepatorenal syndrome evaluation. Admits to 4 weeks of progressive SOB, FUNK, orthopnea, lower extremit y swelling, abdominal swelling, ataxia issues. States beforementioned symptoms have gotten worse over past week. Also states she has gained 16 pounds over past week. Admitts to chronic RUQ, diffuse abdominal discomfort which is worsened over past week. Reports decreased urine output x 7 days. Pt was admitted with nonalcoholic liver cirrhosis with ascites and underwent paracentesis on 11/30 with 6L removed. EGD revealed a duodenal ulcer and small varices. While on telemetry, pt is having some afib and brief runs of NSVT. Asymptomatic. BP stable. EP consulted for evaluation and management. Medications: Prior to Admission Medications: Medications Prior to Admission Medication Sig Dispense Refill Last Dose/Taking albuterol 90 mcg/actuation inhaler Inhale 1 puff by mouth every 6 (six) hours as needed for wheezing. ammonium lactate (AMLACTIN) 12 % cream Apply 1 g topically as needed for dry skin. aspirin 81 MG chewable tablet Take 1 tablet (81 mg total) by mouth daily. atorvastatin (LIPITOR) 20 MG tablet Take 1 tablet (20 mg total) by mouth nightly. bisoprolol (ZEBETA) 10 MG tablet Take 1 tablet (10 mg total) by mouth 2 (two) times daily. cholecalciferol (VITAMIN D3) 125 mcg (5,000 unit) tablet Take 2 tablets (10,000 Units total) by mouth daily. clopidogreL (PLAVIX) 75 mg tablet Take 1 tablet (75 mg total) by mouth daily Look-alike/Sound-alike medication. colestipoL (COLESTID) 1 gram tablet Take 2 tablets (2 g total) by mouth daily. dicyclomine (BENTYL) 10 MG capsule Take 1 capsule (10 mg total) by mouth 2 (two) times daily. furosemide (LASIX) 40 MG tablet Take 1 tablet (40 mg total) by mouth 2 (two) times daily. HYDROcodone-acetaminophen (NORCO) 10-325 mg per tablet Take 1 tablet by mouth every 6 (six) hours as needed for pain. Max Daily Amount: 4 tablets hydrOXYzine pamoate (VISTARIL) 50 MG capsule Take 1 capsule (50 mg total) by mouth every night as needed for itching (sleep) Look-alike/Sound-alike medication. insulin aspart U-100 (NovoLOG) 100 unit/mL (3 mL) inpn Inject under the skin 4 (four) times daily before meals and nightly. [DISCONTINUED] gabapentin (NEURONTIN) 800 MG tablet Take 1 tablet (800 mg total) by mouth 3 (three)times daily. Max Daily Amount: 2,400 mg [DISCONTINUED] lisinopriL (ZESTRIL) 10 MG tablet Take 1 tablet (10 mg total) by mouth 2 (two) timesdaily. [DISCONTINUED] metFORMIN (GLUCOPHAGE) 1000 MG tablet Take 1 tablet (1,000 mg total) by mouth 2 (two) times daily with breakfast and dinner Look-alike/Sound-alike medication. [DISCONTINUED] tirzepatide 7.5 mg/0.5 mL pnij Inject 7.5 mg under the skin every 7 days. [DISCONTINUED] triamcinolone (KENALOG) 0.1 % topical cream Apply 0.1 Applications topically daily to affected area.. Scheduled Medications: amiodarone 200 mg oral Daily 200 mg at 12/08/24942 amoxicillin-clavulanate 1 tablet oral BID 1 tablet at 12/08/24942 atorvastatin 20 mg oral Every Night 20 mg at 12/07/242024 bumetanide 1 mg oral BID ergocalciferol 50,000 Units oral Q7 Days 50,000 Units at 12/07/24 1446 gabapentin 100 mg oral TID 100 mg at 12/08/24 0943 insulin lispro 0-18 Units subcutaneous 4x Daily AC 6 Units at 12/08/24 1116 lactulose 10 g oral BID 10 g at 12/08/24 0943 pantoprazole 40 mg oral BID 40 mg at 12/08/24 0943 rifAXIMin 550 mg oral BID 550 mg at 12/08/24 0943 [START ON 12/09/2024] spironolactone 12.5 mg oral Daily Current Infusions: Current Facility-Administered Medications Medication Dose Route Frequency Provider Last Rate Last Admin acetaminophen (TYLENOL) tablet 500 mg 500 mg oral Q4H PRN Huey Hurtado MD albuterol 2.5 mg /3 mL (0.083 %) nebulizer solution 2.5 mg 2.5 mg nebulization Q6H PRN Albert Garcia MD amiodarone (PACERONE) tablet 200 mg 200 mg oral Daily Deysi Foss MD 200 mg at 12/08/24942 ammonium lactate (LAC-HYDRIN) lotion 12% topical PRN Huey Hurtado MD amoxicillin-clavulanate (AUGMENTIN) 500-125 mg per tablet 1 tablet 1 tablet oral BID Mary Carmen Mcfadden MD 1 tablet at 12/08/24942 atorvastatin (LIPITOR) tablet 20 mg 20 mg oral Every Night Huey Hurtado MD 20 mg at 12/07/242024 benzocaine-menthoL (CEPACOL) lozenge 1 lozenge 1 lozenge buccal Q2H PRN Timothy Bai MD bumetanide (BUMEX) tablet 1 mg 1 mg oral BID Hill Boo MD dextrose 50% (D50W) injection 25 g 25 g intravenous Q15 Min PRN Huey Hurtado MD ergocalciferol (DRISDOL) capsule 50,000 Units 50,000 Units oral Q7 Days Timothy Bai MD 50,000 Units at 12/07/24 1446 gabapentin (NEURONTIN) capsule 100 mg 100 mg oral TID Blanka Malagon MD 100 mg at 12/08/24 0943 glucagon injection 1 mg 1 mg intraMUSCULAR Q15 Min PRN Huey Hurtado MD glucose chew tab 16 g 16 g oral Q15 Min PRN Huey Hurtado MD hydrALAZINE (APRESOLINE) injection 10 mg 10 mg intravenous Q6H PRN Huey Hurtado MD 10 mg at insulin lispro (HUMALOG, ADMELOG) injection 0-18 Units 0-18 Units subcutaneous 4x Daily AC Huey Hurtado MD 6 Units at 12/08/24 1116 lactulose (CHRONULAC) 10 gram/15 mL solution 10 g 10 g oral BID Timothy Bai MD 10 g at 12/08/24 0943 [Held by provider] melatonin tablet 3 mg 3 mg oral Every Night PRN Huey Hurtado MD ondansetron (ZOFRAN-ODT) disintegrating tablet 4 mg 4 mg oral Q8H PRN Huey Hurtado MD Or ondansetron (ZOFRAN) injection 4 mg 4 mg intravenous Q8H PRN Huey Hurtado MD pantoprazole (PROTONIX) EC tablet 40 mg 40 mg oral BID Mary Carmen Mcfadden MD 40 mg at 12/08/24 0943 prochlorperazine (COMPAZINE) injection 10 mg 10 mg intravenous Q6H PRN Huey Hurtado MD rifAXIMin (XIFAXAN) tablet 550 mg 550 mg oral BID Destiney Llanes APRN 550 mg at 12/08/24 0943 sodium chloride 0.9 % infusion 20 mL/hr intravenous Once Denilson Hodgson DO sodium chloride flush 10 mL 10 mL intravenous PRN Huey Hurtado MD [START ON 12/09/2024] spironolactone (ALDACTONE) tablet 12.5 mg 12.5 mg oral Daily Hill Boo MD [facility] meds No current facility-administered medications on file prior to encounter. Current Outpatient Medications on File Prior to Encounter Medication Sig Dispense Refill albuterol 90 mcg/actuation inhaler Inhale 1 puff by mouth every 6 (six) hours as needed for wheezing. ammonium lactate (AMLACTIN) 12 % cream Apply 1 g topically as needed for dry skin. aspirin 81 MG chewable tablet Take 1 tablet (81 mg total) by mouth daily. atorvastatin (LIPITOR) 20 MG tablet Take 1 tablet (20 mg total) by mouth nightly. bisoprolol (ZEBETA) 10 MG tablet Take 1 tablet (10 mg total) by mouth 2 (two) times daily. cholecalciferol (VITAMIN D3) 125 mcg (5,000 unit) tablet Take 2 tablets (10,000 Units total) by mouth daily. clopidogreL (PLAVIX) 75 mg tablet Take 1 tablet (75 mg total) by mouth daily Look-alike/Sound-alike medication. colestipoL (COLESTID) 1 gram tablet Take 2 tablets (2 g total) by mouth daily. dicyclomine (BENTYL) 10 MG capsule Take 1 capsule (10 mg total) by mouth 2 (two) times daily. furosemide (LASIX) 40 MG tablet Take 1 tablet (40 mg total) by mouth 2 (two) times daily. HYDROcodone-acetaminophen (NORCO) 10-325 mg per tablet Take 1 tablet by mouth every 6 (six) hours as needed for pain. Max Daily Amount: 4 tablets hydrOXYzine pamoate (VISTARIL) 50 MG capsule Take 1 capsule (50 mg total) by mouth every night as needed for itching (sleep) Look-alike/Sound-alike medication. insulin aspart U-100 (NovoLOG) 100 unit/mL (3 mL) inpn Inject under the skin 4 (four) times daily before meals and nightly. Problem list and diagnosis Patient Active Problem List Diagnosis Anasarca Melena 1. Melena Case request operating room: ESOPHAGOGASTRODUODENOSCOPY (EGD) Case request operating room: ESOPHAGOGASTRODUODENOSCOPY (EGD) Lactate dehydrogenase (LDH), body fluid Lactate dehydrogenase (LDH), body fluid Body fluid cell count with differential Body fluid cell count with differential Body Fluid Culture + Gram Stain Body Fluid Culture + Gram Stain Anaerobic Culture Anaerobic Culture Fungus Culture W/ROSA MARIA Or Nimisha Ink Fungus Culture W/ROSA MARIA Or Nimisha Ink AFB Culture And Stain AFB Culture And Stain [facility] Non-Optometric Assistant Cytology [facility] Non-Optometric Assistant Cytology DIFFERENTIAL, BODY FLUID DIFFERENTIAL, BODY FLUID Body Fluid/CSF - Path Review () Body Fluid/CSF - Path Review () [facility] BONE MARROW SMEAR, ASPIRATION, AND STAIN [facility] BONE MARROW SMEAR, ASPIRATION, AND STAIN CANCELED: Glucose Body Fluid(SENDOUT) CANCELED: Glucose Body Fluid(SENDOUT) CANCELED: Total Protein, Body Fluid(SENDOUT) CANCELED: Total Protein, Body Fluid(SENDOUT) 2. Anasarca gabapentin (NEURONTIN) capsule 100 mg bumetanide (BUMEX) injection 1 mg Past Medical History: Past Medical History: Diagnosis Date Cirrhosis, non-alcoholic (HCC) Diabetes mellitus (HCC) Hypertension Past Surgical History: Past Surgical History: Procedure Laterality Date ESOPHAGOGASTRODUODENOSCOPY (EGD),REMOVAL FOREIGN BODY N/A 12/01/2024 Procedure: EGD, WITH FOREIGN BODY REMOVAL; Surgeon: Scott Daley MD; [facility]; Service: Gastroenterology; Laterality: N/A; Allergies: No Known Allergies Social History: Tobacco Use Smoking status: Never Passive exposure: Never Smokeless tobacco: Never Substance Use Topics Alcohol use: Never Drug use: Never Marital Status: Family History: No family history on file. Review of Systems: Constitutional: Negative except as documented in history of present illness. Eye: Negative except as documented in history of present illness. Ear/Nose/Mouth/Throat: Negative except as documented in history of present illness. Respiratory: Negative except as documented in history of present illness. Cardiovascular: Negative except as documented in history of present illness. Gastrointestinal: Negative except as documented in history of present illness. Genitourinary: Negative except as documented in history of present illness. Hematology/Lymphatics: Negative except as documented in history of present illness. Endocrine: Negative except as documented in history of present illness. Immunologic: Negative except as documented in history of present illness. Musculoskeletal: Negative except as documented in history of present illness. Integumentary: Negative except as documented in history of present illness. Neurologic: Negative except as documented in history of present illness. Psychiatric: Negative except as documented in history of present illness. Physical Exam: Blood pressure (!) 178/83, pulse 94, temperature 97.3 ??F (36.3 ??C), temperature source Oral, resp. rate 18, height 1.676 m (5' 6 ), weight 98.2 kg (216 lb 6.4 oz), SpO2 100%. General: Alert and oriented. Ill-appearing Eye: Pupils are equal, round and reactive to light. HENT: Normocephalic. Neck: Supple, Non-tender, No carotid bruit, No jugular venous distention. Respiratory: Decreased breath sound bilateral, Respirations are non-labored. Cardiovascular: regular rhythm, No murmur Gastrointestinal: Soft, Non-tender, slightly distended, Normal bowel sounds. Musculoskeletal: Normal range of motion. Integumentary: Warm, Dry, [place]. Neurologic: No obvious focal deficit Psychiatric: Cooperative, Appropriate mood & affect. Labs, Imaging, and Other Studies: Echo Results (last 7 days) Procedure Component Value Units Date/Time ECHO COMPLETE (DOPPLER / COLOR) W OR WO CONTRAST [[id number]] Collected: 11/30/2468 Order Status: Completed Updated: 11/30/24 104 Narrative: TRANSTHORACIC ECHOCARDIOGRAPHY REPORT Demographics Patient Name: RIN JONES : 1960 Age: 64 year(s) Corporate ID Number: [id number] Gender Female Container Repairer: Giovanna Rock Height: 67 inches [facility] Referring Physician: HUEY HURTADO Weight: 225 pounds Interpreting JESSICA RAYMOND MD BMI: 35.24 kg/m^2 Physician: Date of Service: 11/30/2024 Blood Pressure: 118/59 mmHg Room Number: 579 Type of Study: TTE procedure: ECHO COMPLETE (DOPPLER / COLOR) W OR WO CONTRAST. Patient Status: Routine IP [facility]quate visualization History/Tech Notes: Indication: shortness of breath R06.02 Impression: ######################################## Normal sized left ventricle. Normal left ventricular wall thickness. Visually estimated ejection fraction 55% +/- 5%. Borderline systolic strain pattern. Increased left atrial pressure (Grade II diastolic dysfunction). Sclerotic aortic valve leaflets. Trivial pericardial effusion measuring 0.3cm. posteriorly. ######################################## Measurements Summary: LVEDd: 5.33 cm LVESd: 3.64 cm IVSEd: 0.88 cm AO Root:2.7 cm LVPWd: 0.87 cm Contractility Score Normal Left Ventricular contractility was noted. LV regional wall motion: (0-Not visualized 1-Normal 2-Hypokinesis 3-Akinesis 4-Dyskinesis 5-Aneurysm) Left Ventricle Peak E-wave: 1.31 Peak A-wave: 1.35 m/s E/A ratio: 0.97 m/s Volume [id number] LV length: 8.51 cm ml Volume [id number] ml LVOT diameter: 1.79 cm Normal sized left ventricle. Normal left ventricular wall thickness. Visually estimated ejection fraction 55% +/- 5%. Borderline systolic strain pattern. Increased left atrial pressure (Grade II diastolic dysfunction). No left ventricular masses or thrombi. Right Ventricle Diastolic dimension: 3.92 RV systolic pressure: 28.12 mmHg cm Normal sized right ventricle. Normal TAPSE c/w normal right ventricular function Left Atrium LA dimension: 4 cm LA volume:83.13 ml LA/Aorta: 1.48 Abnormal left atrial volume index 39 ml/m^2. Intact atrial septum. No atrial mass or thrombus. Right Atrium Normal sized right atrium. Intact atrial septum. No atrial mass or thrombus. Mitral Valve Deceleration time: 261.56 msec Thickened mitral valve leaflets. Mild (1+) mitral regurgitation. No mitral stenosis. No masses or vegetations seen. Aortic Valve AV VTI: 53.02 Area continuity: 1.13 Peak velocity: 2.38 m/s cm cm^2 Peak gradient: 22.63 LVOT VTI: 23.85 Mean velocity: 1.76 mmHg cm m/s Mean gradient: 13.56 mmHg Sclerotic aortic valve leaflets. Mildly thickend free edges of the aortic valve leaflets. No aortic regurgitation. No aortic stenosis. No masses or vegetations seen. Tricuspid Valve TR velocity: 2.51 m/s TR gradient: 25.08281 mmHg Estimated RAP: 3 mmHg RVSP: 28.12 mmHg Structurally normal tricuspid valve. Trace tricuspid valve regurgitation. No tricuspid stenosis. No masses or vegetations seen. Pulmonic Valve Acceleration time: 110.37 msec PASP: 28.12 mmHg Structurally normal pulmonic valve. Trace pulmonary valve regurgitation. No pulmonic stenosis. No masses or vegetations seen. Great Vessels Aorta Aortic Root: 2.7 cm LVOT Diameter: 1.79 cm Visualized thoracic aorta is normal. Normal aortic root. No evidence of dissection. Normal IVC with appropriate collapse. Pericardium / Pleura Trivial pericardial effusion measuring 0.3cm. posteriorly. Other Ascites noted in subcostal imaging. Sodium Date Value Ref Range Status 12/08/2024 149 (H) 136 - 145 meq/L Final Potassium Date Value Ref Range Status 12/08/2024 3.6 3.4 - 5.1 meq/L Final Chloride Date Value Ref Range Status 12/08/2024 116 (H) 98 - 112 meq/L Final CO2 Date Value Ref Range Status 12/08/2024 23 22 - 29 meq/L Final BUN Date Value Ref Range Status 12/08/2024 76.4 (H) 9.8 - 20.1 mg/dL Final Creatinine Date Value Ref Range Status 12/08/2024 2.92 (H) 0.57 - 1.11 mg/dL Final eGFR (mL/min/1.73m2) Date Value Ref Range Status 12/08/2024 18 (L) >=60 mL/min/1.73m2 Final Calcium Date Value Ref Range Status 12/08/2024 8.7 8.4 - 10.2 mg/dL Final WBC Date Value Ref Range Status 12/08/2024 3.1 (L) 4.0 - 10.0 K/??L Final 12/07/2024 3.5 (L) 4.0 - 10.0 K/??L Final 12/06/2024 7.0 4.0 - 10.0 K/??L Final RBC Date Value Ref Range Status 12/08/2024 2.84 (L) 3.93 - 5.22 M/??L Final 12/07/2024 2.58 (L) 3.93 - 5.22 M/??L Final 12/06/2024 2.83 (L) 3.93 - 5.22 M/??L Final Hemoglobin Date Value Ref Range Status 12/08/2024 8.7 (L) 11.2 - 15.7 GM/DL Final 12/07/2024 7.9 (L) 11.2 - 15.7 GM/DL Final 12/06/2024 8.7 (L) 11.2 - 15.7 GM/DL Final Hematocrit Date Value Ref Range Status 12/08/2024 28.2 (L) 34.1 - 44.9 % Final 12/07/2024 25.6 (L) 34.1 - 44.9 % Final 12/06/2024 28.2 (L) 34.1 - 44.9 % Final Platelets Date Value Ref Range Status 12/08/2024 54 (L) 140 - 375 K/CU MM Final 12/07/2024 54 (L) 140 - 375 K/CU MM Final 12/06/2024 80 (L) 140 - 375 K/CU MM Final No results found for: TSH , MAGNESIUM .[facility] Lab Results Component Value Date K 3.6 12/08/2024 Lab Results Component Value Date CREATININE 2.92 (H) 12/08/2024 No results found for: TSH No results found for: MAGNESIUM AST Date Value Ref Range Status 12/07/2024 24 11 - 34 U/L Final Comment: AST2 reagent used for testing does not contain P5P supplementation and therefore may miss AST elevations in patients with B6 deficiency. This population may be as high as 10% in the [place], with risk factors including malabsorption, drug interactions, and alcoholic hepatitis. ALT Date Value Ref Range Status 12/07/2024 9 <=34 U/L Final Comment: ALT2 reagent used for testing does not contain P5P supplementation and therefore may miss ALT elevations in patients with B6 deficiency. This population may be as high as 10% in the [place], with risk factors including malabsorption, drug interactions, and alcoholic hepatitis. Echo Results (last 7 days) Procedure Component Value Units Date/Time ECHO COMPLETE (DOPPLER / COLOR) W OR WO CONTRAST [[id number]] Collected: 11/30/24724 Order Status: Completed Updated: 11/30/24 1046 Narrative: TRANSTHORACIC ECHOCARDIOGRAPHY REPORT Demographics Patient Name: RIN JONES : 1960 Age: 64 year(s) Corporate ID Number: [id number] Gender Female Container Repairer: Giovanna Rock Height: 67 inches [facility] Referring Physician: HUEY HURTADO Weight: 225 pounds Interpreting JESSICA RAYMOND MD BMI: 35.24 kg/m^2 Physician: Date of Service: 11/30/2024 Blood Pressure: 118/59 mmHg Room Number: 579 Type of Study: TTE procedure: ECHO COMPLETE (DOPPLER / COLOR) W OR WO CONTRAST. Patient Status: Routine IP Study Location: [facility] Quality: Adequate visualization History/Tech Notes: Indication: shortness of breath R06.02 Impression: ######################################## Normal sized left ventricle. Normal left ventricular wall thickness. Visually estimated ejection fraction 55% +/- 5%. Borderline systolic strain pattern. Increased left atrial pressure (Grade II diastolic dysfunction). Sclerotic aortic valve leaflets. Trivial pericardial effusion measuring 0.3cm. posteriorly. ######################################## Measurements Summary: LVEDd: 5.33 cm LVESd: 3.64 cm IVSEd: 0.88 cm AO Root:2.7 cm LVPWd: 0.87 cm Contractility Score Normal Left Ventricular contractility was noted. LV regional wall motion: (0-Not visualized 1-Normal 2-Hypokinesis 3-Akinesis 4-Dyskinesis 5-Aneurysm) Left Ventricle Peak E-wave: 1.31 Peak A-wave: 1.35 m/s E/A ratio: 0.97 m/s Volume [id number] LV length: 8.51 cm ml Volume [id number] ml LVOT diameter: 1.79 cm Normal sized left ventricle. Normal left ventricular wall thickness. Visually estimated ejection fraction 55% +/- 5%. Borderline systolic strain pattern. Increased left atrial pressure (Grade II diastolic dysfunction). No left ventricular masses or thrombi. Right Ventricle Diastolic dimension: 3.92 RV systolic pressure: 28.12 mmHg cm Normal sized right ventricle. Normal TAPSE c/w normal right ventricular function Left Atrium LA dimension: 4 cm LA volume:83.13 ml LA/Aorta: 1.48 Abnormal left atrial volume index 39 ml/m^2. Intact atrial septum. No atrial mass or thrombus. Right Atrium Normal sized right atrium. Intact atrial septum. No atrial mass or thrombus. Mitral Valve Deceleration time: 261.56 msec Thickened mitral valve leaflets. Mild (1+) mitral regurgitation. No mitral stenosis. No masses or vegetations seen. Aortic Valve AV VTI: 53.02 Area continuity: 1.13 Peak velocity: 2.38 m/s cm cm^2 Peak gradient: 22.63 LVOT VTI: 23.85 Mean velocity: 1.76 mmHg cm m/s Mean gradient: 13.56 mmHg Sclerotic aortic valve leaflets. Mildly thickend free edges of the aortic valve leaflets. No aortic regurgitation. No aortic stenosis. No masses or vegetations seen. Tricuspid Valve TR velocity: 2.51 m/s TR gradient: 25.15417 mmHg Estimated RAP: 3 mmHg RVSP: 28.12 mmHg Structurally normal tricuspid valve. Trace tricuspid valve regurgitation. No tricuspid stenosis. No masses or vegetations seen. Pulmonic Valve Acceleration time: 110.37 msec PASP: 28.12 mmHg Structurally normal pulmonic valve. Trace pulmonary valve regurgitation. No pulmonic stenosis. No masses or vegetations seen. Great Vessels Aorta Aortic Root: 2.7 cm LVOT Diameter: 1.79 cm Visualized thoracic aorta is normal. Normal aortic root. No evidence of dissection. Normal IVC with appropriate collapse. Pericardium / Pleura Trivial pericardial effusion measuring 0.3cm. posteriorly. Other Ascites noted in subcostal imaging. Assessment and Plan: *Paroxysmal Atrial Fib [id number] of 3 to 4 also have some wide-complex tachycardia aberrancy versus nonsustained VT longest about 10 beats echocardiogram showed normal EF in November 2024 patient seemsasymptomatic *Non-alcoholic Liver Cirrhosis decompensated with ascites status post paracentesis 6 L removed on 11/30/2024 also underwent an EGD that shows duodenal ulcer but no evidence of active bleeding *CAD *Diabetes mellitus *HTN *HLD *pancytopenia *GERMÁN current GFR 15. Plan: 12/08/2024 Labs and telemetry reviewed. Kidney function remains quite impaired. Patient cannot take anticoagulation for A-fib despite [id number] because of multiple issue including GI bleeding pancytopenia due to arthritis of bleeding. 12/07/2024 Labs and telemetry reviewed. Patient maintained sinus rhythm. Keep amiodarone 200 mg twice a day for 1 month then 200 mg daily. 12/06/2024 Labs and telemetry reviewed. No arrhythmia overnight. Continue amiodarone loading. 12/05/2024 Labs and telemetry reviewed. Patient remains in sinus rhythm. Stop IV amiodarone. Transfer on the floor. Continue p.o. amiodarone 12/04/2024 Labs and telemetry reviewed. Patient had no arrhythmia overnight. Antiarrhythmic logan we are limited with kidney failure. Will do low-dose of amiodarone for now g even though she has some liver failure. Will use low-dose and monitor liver enzymes. 12/03/2024 Labs and telemetry reviewed. Keep electrolytes within normal limit. Patient received a bolus of amiodarone that converted her. If further arrhythmia can always do bolus drip of amiodarone however concern is due to liver function. Further recommendations pending testing results, clinical course, and response to therapy. * DAWOOD Rubin/Amada - 12/08/2024 10:42 AM EDT Images from the original note were not included. Inpatient Occupational Therapy Treatment Note Patient Name: Mary Coronel Date of : 1960 Date of Treatment: 12/08/24 Start Time: 1012 Stop Time: 1042 Session Duration: 30 minutes This patient is a 64 y.o. female admitted on 11/30/2024 with Anasarca [R60.1]. Past Medical History: Diagnosis Date Cirrhosis, non-alcoholic (HCC) Diabetes mellitus (HCC) Hypertension Past Surgical History: Procedure Laterality Date ESOPHAGOGASTRODUODENOSCOPY (EGD),REMOVAL FOREIGN BODY N/A 12/01/2024 Procedure: EGD, WITH FOREIGN BODY REMOVAL; Surgeon: Scott Daley MD; [facility]; Service: Gastroenterology; Laterality: N/A; General Visit type: Treatment Approved by: Nurse Curry Patient disposition upon entry: Patient verified by name, Patient verified by date of , Sitting in bedside chair Precautions Weightbearing status: No restrictions Precautions: Fall risk Isolation precautions: Standard Subjective Subjective: Pt agreeable Pain No pain, but soreness in back Cognition Cognition: Overall cognitive status: Patient is awake and alert, attending to directions appropriately, demonstrating good problem solving skills, and aware of any deficits or impairments, if present. Objective Vitals 99% SpO2 s/p ambulate ~50 feet with 4 L of O2 Bed Mobility Did not assess, pt in bedside chair upon entry Transfers Sit to stand:1 person assist, Gait belt used, Rolling walker used, Min A from bedside chair (chair has arm rests) mod A from chair in hallway (no arm rests) Stand to sit:Contact guard, 1 person assist, Gait belt used, Rolling walker used Functional mobility:Contact guard, 1 person assist, Gait belt used, Rolling walker used ADLs Lower body dressing:Moderate Assistance, Seated in chair Balance Static sitting balance:Normal: Patient able to maintain steady balance without handheld support Dynamic sitting balance:Normal: Patient accepts maximal challenge and shift weight easily within full range in all directions Static standing balance:Poor: Patient required handheld support and moderate to maximal support to maintain position Dynamic standing balance:Poor: Patient unable to accept challenge or move without loss of balance Activity Tolerance Patient tolerated activity/intervention well with no complaints or adverse events. Treatment Upon entering room, pt was sitting in bedside chair. Pt needed mod A to don briefs from bedside chair; requiring assistance initially pulling briefs past ankles and pulling from knees to waist (pt needed both hands on RW for standing balance). Pt was able to stand from bedside chair with min A and ambulate with CGA ~50 feet and transfer to chair in hallway. Pt was able to stand from hallway chair(no arms on chair) with mod A. Pt was then able to ambulate back to room with same level of assistance. Pt was able to maintain O2 sat throughout session. Assessment Assessment Patient demonstrated improved performance during this treatment session. Patient continues to present with decreased strength, decreased endurance, decreased balance. These deficits currently impact the patient's ability to perform ADLs and functional mobility, putting them at an increased risk forincreased falls, further decreased strength, increased caregiver burden. Patient will benefit from continued OT services to address the aforementioned functional deficits. Plan Recommendations Discharge recommendations: Patient would benefit from 1-2 hours of multidisciplinary therapy per day upon discharge from acute care setting to assist with returning to prior level of functioning. DME recommendations: Unable to make adaptive/DME recommendations at this time. Pt stated if she were to discharge directly home from hospital, she would live with sister. Pt stated her sister works outside of the home and would only have assistance in AM and PM Treatment Plan: Continue OT POC, Adaptive equipment training, ADL training, Energy conservation instruction, Functional mobility/transfer training, IADL training, Safety training, Strengthening OT Frequency/Duration: 3x/week for 14 days Goals Grooming: face washing, standing with standby assist Lower body dressing: donning and doffing lower body clothing with standby assist. Toileting: toileting with contact guard assist. Functional transfers: stand pivot transfer with standby assist. HEP: The pt will demonstrate ability to complete BUE HEP to increase/maintain BUE strength to promote independence with ADL tasks. Goals were discussed with patient Progress towards goals: progressing Education Patient educated on safety, role of occupational therapy, patient's plan of care, ADLs, functional mobility, adaptive equipment and following, they were able to verbalize understanding, return demonstration. Patient Disposition Upon Leaving Patient Disposition: Sitting in bedside chair, All needs met and within reach, Call light/pull cordin reach If this patient discharges prior to next therapy session, this note serves as the patient's discharge summary. Electronically signed by NBA Rubin - 12/08/2024 - 11:51 AM EDT * Mary Carmen Mcfadden MD - 12/08/2024 10:31 AM EDT Subjective On BiPAP more awake Patient shortness of breath generalized weakness No nausea or vomiting No fever Last Recorded Vitals Blood pressure (!) 178/83, pulse 94, temperature 97.3 ??F (36.3 ??C), temperature source Oral, resp. rate 18, height 1.676 m (5' 6 ), weight 98.2 kg (216 lb 6.4 oz), SpO2 100%. Physical Exam Head atraumatic normocephalic Pupils round and reactive Eyes no conjunctival injection or discharge Ears no discharge Nose no bleeding or discharge Mouth dry Neck supple full range of motion Chest Diminished in the bilateral breath expiratory wheezes Heart S1 and S2 healed regular rate Abdomen soft audible bowel sounds no tenderness Extremities no edema erythema or tenderness Neurological patient alert awake move extremities Psychiatric anxiety Skin no apparent rashes Endocrine no thyromegaly tenderness General Patient in bed mild distress Labs: Results for orders placed or performed during the hospital encounter of 11/30/24 (from the past 24 hours) Blood gas, arterial Status: Abnormal Collection Time: 12/07/24 10:36 AM Result Value Ref Range pH, Arterial 7.26 (L) 7.35 - 7.45 pCO2, Arterial 50 (H) 35 - 45 mm Hg pO2, Arterial 43 (LL) 80 - 100 mm Hg HCO3, Arterial 22 20 - 26 mmol/L Base Excess, Arterial -4.7 (L) -2.0 - 2.0 mmol/L O2 Sat, Arterial 80.4 (L) 95.0 - 100.0 % CTO2 ARTERIAL 9.4 mmol/L THB ARTERIAL 8.5 (L) 12.0 - 18.0 g/dL PaO2/FIO2 calculated 203.0 [facility] S[facility] Right Radial Arterial Puncture Yes Blood Gas PT Temperature C 37.0 Sen's Test Acceptable Critical Values Notification Critical Blood gas called to TRAY LORENZ RN . [place] [id number] and confirmed on 12/07/2024 10:51 ABG Number of Draw Attempts 1 FIO2 21.0 Blood Gas Temperature Corrected Results No No Glucose, Nova Meter Status: Abnormal Collection Time: 12/07/24 10:54 AM Result Value Ref Range POC-GLUCOSE 146 (H) 70 - 110 mg/dL Laboratory Scientist [id number] Blood gas, arterial Status: Abnormal Collection Time: 12/07/24 2:02 PM Result Value Ref Range pH, Arterial 7.28 (L) 7.35 - 7.45 pCO2, Arterial 50 (H) 35 - 45 mm Hg pO2, Arterial 58 (L) 80 - 100 mm Hg HCO3, Arterial 24 20 - 26 mmol/L Base Excess, Arterial -3.3 (L) -2.0 - 2.0 mmol/L O2 Sat, Arterial 91.3 (L) 95.0 - 100.0 % CTO2 ARTERIAL 11.2 mmol/L THB ARTERIAL 8.9 (L) 12.0 - 18.0 g/dL [facility] Right Radial Arterial Puncture Yes Blood Gas O2 Delivery Device Cannula Oxygen Flow Rate 2 Blood Gas PT Temperature C 37.0 Sen's Test Unacceptable Vent Mode Other Critical Values Notification Critical Blood gas called to DR MALAGON . Results acknowledged/[place] [id number] and confirmed on 12/07/2024 14:14 ABG Number of Draw Attempts 1 Performed by: CD FIO2 Blood Gas Temperature Corrected Results No No Glucose, Nova Meter Status: Abnormal Collection Time: 12/07/24 3:39 PM Result Value Ref Range POC-GLUCOSE 159 (H) 70 - 110 mg/dL Laboratory Scientist [id number] ABG Status: Abnormal Collection Time: 12/07/24 4:21 PM Result Value Ref Range pH, Arterial 7.29 (L) 7.35 - 7.45 pCO2, Arterial 50 (H) 35 - 45 mm Hg pO2, Arterial 179 (H) 80 - 100 mm Hg HCO3, Arterial 24 20 - 26 mmol/L Base Excess, Arterial -2.3 (L) -2.0 - 2.0 mmol/L O2 Sat, Arterial >100.0 (H) 95.0 - 100.0 % CTO2 ARTERIAL 12.0 mmol/L THB ARTERIAL 8.4 (L) 12.0 - 18.0 g/dL PaO2/FIO2 calculated 359.0 [facility] Right Brachial Arterial Puncture Yes Blood Gas O2 Delivery Device NIV Blood Gas PT Temperature C 37.0 Sen's Test Not Applicable Critical Values Notification Critical Blood gas called to SEB LORENZ RN . Results acknowledged/read back to [id number] and confirmed on 12/07/2024 16:42 ABG Number of Draw Attempts 2 Set Rate 16.0 IPAP 10 EPAP 6 FIO2 50.0 Blood Gas Temperature Corrected Results No No Glucose, Nova Meter Status: Abnormal Collection Time: 12/07/24 7:54 PM Result Value Ref Range POC-GLUCOSE 164 (H) 70 - 110 mg/dL Laboratory Scientist [id number] Basic Metabolic Panel Status: Abnormal Collection Time: 12/08/24 4:10 AM Result Value Ref Range Sodium 149 (H) 136 - 145 meq/L Potassium 3.6 3.4 - 5.1 meq/L CO2 23 22 - 29 meq/L Chloride 116 (H) 98 - 112 meq/L Glucose 160 (H) 82 - 115 mg/dL BUN 76.4 (H) 9.8 - 20.1 mg/dL Creatinine 2.92 (H) 0.57 - 1.11 mg/dL BUN/Creatinine 26 (H) 8 - 20 Calcium 8.7 8.4 - 10.2 mg/dL Anion Gap 14 (H) 4 - 12 eGFR (mL/min/1.73m2) 18 (L) >=60 mL/min/1.73m2 Osmolality Calc 322.3 mOsm/kg CBC - Hemogram (-[facility]) Status: Abnormal Collection Time: 12/08/24 4:10 AM Result Value Ref Range WBC 3.1 (L) 4.0 - 10.0 K/??L RBC 2.84 (L) 3.93 - 5.22 M/??L Hemoglobin 8.7 (L) 11.2 - 15.7 GM/DL Hematocrit 28.2 (L) 34.1 - 44.9 % MCV 99 (H) 79 - 95 fL MCH 30.6 25.6 - 32.2 pg MCHC 30.9 (L) 32.2 - 35.5 GM/DL RDW 17.4 (H) 11.7 - 14.4 % Platelets 54 (L) 140 - 375 K/CU MM MPV 11.2 9.4 - 12.3 fL Glucose, Nova Meter Status: Abnormal Collection Time: 12/08/24 6:08 AM Result Value Ref Range POC-GLUCOSE 136 (H) 70 - 110 mg/dL Laboratory Scientist [id number] Blood gas, arterial Status: Abnormal Collection Time: 12/08/24 7:13 AM Result Value Ref Range pH, Arterial 7.26 (L) 7.35 - 7.45 pCO2, Arterial 54 (H) 35 - 45 mm Hg pO2, Arterial 80 80 - 100 mm Hg HCO3, Arterial 24 20 - 26 mmol/L Base Excess, Arterial -2.9 (L) -2.0 - 2.0 mmol/L O2 Sat, Arterial 96.7 95.0 - 100.0 % CTO2 ARTERIAL 11.8 mmol/L THB ARTERIAL 8.8 (L) 12.0 - 18.0 g/dL [facility] Right Brachial Arterial Puncture Yes Blood Gas O2 Delivery Device Cannula Oxygen Flow Rate 4 Blood Gas PT Temperature C 37.0 Sen's Test Not Applicable Critical Values Notification Critical Blood gas called to KNOWN CONDITION . Results acknowledged/read back to [id number] and confirmed on 12/08/2024 07:30 ABG Number of Draw Attempts 1 FIO2 Blood Gas Temperature Corrected Results No No XR chest AP portable Narrative: PORTABLE CHEST; HISTORY: Renal failure. COMPARISON: 1 day prior. FINDINGS: The heart is enlarged. The mediastinum is unremarkable. There has been interval improvement in interstitial opacities. There is no new infiltrate or pleural effusion. There is no pneumothorax. Impression: Interval improvement in interstitial opacities. Images reviewed, interpreted, and dictated by Dr. Lizzie Myles. Transcribed by Sandra Ramsey PA-C. Assessment Anasarca Paroxysmal Atrial Fib *CAD *Diabetes mellitus *HTN *HLD *pancytopenia *GERMÁN current GFR 15. Nonalcoholic liver cirrhosis with ascites Ascites Status post paracentesis Duodenal ulcer Anasarca Diabetes mellitus Acute renal failure 12/08/2024 Plan PT OT Monitor kidney function Creatinine improving No emergent dialysis Labs in a.m. Patient today on BiPAP Repeat blood gas pulmonary following Discharge Planning: Patient not ready to be discharged blood gas ordered Pending blood gas improvement And more awake education general manager working discharge plan * Hill Boo MD - 12/08/2024 8:39 AM EDT Subjective No acute events overnight. No new complain Review of Systems No CP, SOA, N/V, fever, chills or rash Objective Last Recorded Vitals Blood pressure (!) 160/74, pulse 85, temperature 98.1 ??F (36.7 ??C), temperature source Oral, resp. rate 19, height 1.676 m (5' 6 ), weight 98.2 kg (216 lb 6.4 oz), SpO2 99%. Physical Exam Gen: Alert, NAD HEENT: NC, AT Neck: Supple, no JVD Lungs: CTA. Non labored, symetrical chest expansion CVS: SI/S2 audible. RRR, No M/G noted Abd: soft, NT, ND, BS + Ext: +++ Pedal edema , no cyanosis WALLPAPERER HELPER: Alert, No focal deficit noted grossly Psy: Cooperative Labs: Results for orders placed or performed during the hospital encounter of 11/30/24 (from the past 24 hours) ECG 12 lead Status: None Collection Time: 12/07/24 10:29 AM Result Value Ref Range VENTRICULAR RATE EKG/MIN 91 BPM ATRIAL RATE (MCT) 91 BPM MI Interval 142 ms QRS-INTERVAL (MSEC) 88 ms QT Interval 376 ms QTC Interval 462 ms P [place] 39 degrees R AXIS (MCT) -3 degrees T Wave [place] 4 degrees Bryan Diagnosis Normal sinus rhythm Nonspecific T wave abnormality Abnormal ECG When compared with ECG of 06-DEC-2024 13:16, No significant change was found Confirmed by DEYSI FOSS M.D. ([id number]) on 12/07/2024 7:36:17 PM Blood gas, arterial Status: Abnormal Collection Time: 12/07/24 10:36 AM Result Value Ref Range pH, Arterial 7.26 (L) 7.35 - 7.45 pCO2, Arterial 50 (H) 35 - 45 mm Hg pO2, Arterial 43 (LL) 80 - 100 mm Hg HCO3, Arterial 22 20 - 26 mmol/L Base Excess, Arterial -4.7 (L) -2.0 - 2.0 mmol/L O2 Sat, Arterial 80.4 (L) 95.0 - 100.0 % CTO2 ARTERIAL 9.4 mmol/L THB ARTERIAL 8.5 (L) 12.0 - 18.0 g/dL PaO2/FIO2 calculated 203.0 [facility] Right Radial Arterial Puncture Yes Blood Gas PT Temperature C 37.0 Sen's Test Acceptable Critical Values Notification Critical Blood gas called to TRAY LORENZ RN . [place] [id number] and confirmed on 12/07/2024 10:51 ABG Number of Draw Attempts 1 FIO2 21.0 Blood Gas Temperature Corrected Results No No Glucose, Nova Meter Status: Abnormal Collection Time: 12/07/24 10:54 AM Result Value Ref Range POC-GLUCOSE 146 (H) 70 - 110 mg/dL Laboratory Scientist [id number] Blood gas, arterial Status: Abnormal Collection Time: 12/07/24 2:02 PM Result Value Ref Range pH, Arterial 7.28 (L) 7.35 - 7.45 pCO2, Arterial 50 (H) 35 - 45 mm Hg pO2, Arterial 58 (L) 80 - 100 mm Hg HCO3, Arterial 24 20 - 26 mmol/L Base Excess, Arterial -3.3 (L) -2.0 - 2.0 mmol/L O2 Sat, Arterial 91.3 (L) 95.0 - 100.0 % CTO2 ARTERIAL 11.2 mmol/L THB ARTERIAL 8.9 (L) 12.0 - 18.0 g/dL [facility] Right Radial Arterial Puncture Yes Blood Gas O2 Delivery Device Cannula Oxygen Flow Rate 2 Blood Gas PT Temperature C 37.0 Sen's Test Unacceptable Vent Mode Other Critical Values Notification Critical Blood gas called to DR MALAGON . Results [place] [id number] and confirmed on 12/07/2024 14:14 ABG Number of Draw Attempts 1 Performed by: CD FIO2 Blood Gas Temperature Corrected Results No No Glucose, Nova Meter Status: Abnormal Collection Time: 12/07/24 3:39 PM Result Value Ref Range POC-GLUCOSE 159 (H) 70 - 110 mg/dL Laboratory Scientist [id number] ABG Status: Abnormal Collection Time: 12/07/24 4:21 PM Result Value Ref Range pH, Arterial 7.29 (L) 7.35 - 7.45 pCO2, Arterial 50 (H) 35 - 45 mm Hg pO2, Arterial 179 (H) 80 - 100 mm Hg HCO3, Arterial 24 20 - 26 mmol/L Base Excess, Arterial -2.3 (L) -2.0 - 2.0 mmol/L O2 Sat, Arterial >100.0 (H) 95.0 - 100.0 % CTO2 ARTERIAL 12.0 mmol/L THB ARTERIAL 8.4 (L) 12.0 - 18.0 g/dL PaO2/FIO2 calculated 359.0 [facility] Right Brachial Arterial Puncture Yes Blood Gas O2 Delivery Device NIV Blood Gas PT Temperature C 37.0 Sen's Test Not Applicable Critical Values Notification Critical Blood gas called to SEB LORENZ RN . Results acknowledged/read back to [id number] and confirmed on 12/07/2024 16:42 ABG Number of Draw Attempts 2 Set Rate 16.0 IPAP 10 EPAP 6 FIO2 50.0 Blood Gas Temperature Corrected Results No No Glucose, Nova Meter Status: Abnormal Collection Time: 12/07/24 7:54 PM Result Value Ref Range POC-GLUCOSE 164 (H) 70 - 110 mg/dL Laboratory Scientist [id number] Basic Metabolic Panel Status: Abnormal Collection Time: 12/08/24 4:10 AM Result Value Ref Range Sodium 149 (H) 136 - 145 meq/L Potassium 3.6 3.4 - 5.1 meq/L CO2 23 22 - 29 meq/L Chloride 116 (H) 98 - 112 meq/L Glucose 160 (H) 82 - 115 mg/dL BUN 76.4 (H) 9.8 - 20.1 mg/dL Creatinine 2.92 (H) 0.57 - 1.11 mg/dL BUN/Creatinine 26 (H) 8 - 20 Calcium 8.7 8.4 - 10.2 mg/dL Anion Gap 14 (H) 4 - 12 eGFR (mL/min/1.73m2) 18 (L) >=60 mL/min/1.73m2 Osmolality Calc 322.3 mOsm/kg CBC - Hemogram (-[facility]) Status: Abnormal Collection Time: 12/08/24 4:10 AM Result Value Ref Range WBC 3.1 (L) 4.0 - 10.0 K/??L RBC 2.84 (L) 3.93 - 5.22 M/??L Hemoglobin 8.7 (L) 11.2 - 15.7 GM/DL Hematocrit 28.2 (L) 34.1 - 44.9 % MCV 99 (H) 79 - 95 fL MCH 30.6 25.6 - 32.2 pg MCHC 30.9 (L) 32.2 - 35.5 GM/DL RDW 17.4 (H) 11.7 - 14.4 % Platelets 54 (L) 140 - 375 K/CU MM MPV 11.2 9.4 - 12.3 fL Glucose, Nova Meter Status: Abnormal Collection Time: 12/08/24 6:08 AM Result Value Ref Range POC-GLUCOSE 136 (H) 70 - 110 mg/dL Laboratory Scientist [id number] Blood gas, arterial Status: Abnormal Collection Time: 12/08/24 7:13 AM Result Value Ref Range pH, Arterial 7.26 (L) 7.35 - 7.45 pCO2, Arterial 54 (H) 35 - 45 mm Hg pO2, Arterial 80 80 - 100 mm Hg HCO3, Arterial 24 20 - 26 mmol/L Base Excess, Arterial -2.9 (L) -2.0 - 2.0 mmol/L O2 Sat, Arterial 96.7 95.0 - 100.0 % CTO2 ARTERIAL 11.8 mmol/L THB ARTERIAL 8.8 (L) 12.0 - 18.0 g/dL [facility] S[facility] Right Brachial Arterial Puncture Yes Blood Gas O2 Delivery Device Cannula Oxygen Flow Rate 4 Blood Gas PT Temperature C 37.0 Sen's Test Not Applicable Critical Values Notification Critical Blood gas called to KNOWN CONDITION . Results acknowledged/read back to [id number] and confirmed on 12/08/2024 07:30 ABG Number of Draw Attempts 1 FIO2 Blood Gas Temperature Corrected Results No No XR chest AP portable Narrative: PORTABLE CHEST; HISTORY: Renal failure. COMPARISON: 1 day prior. FINDINGS: The heart is enlarged. The mediastinum is unremarkable. There has been interval improvement in interstitial opacities. There is no new infiltrate or pleural effusion. There is no pneumothorax. Impression: Interval improvement in interstitial opacities. Images reviewed, interpreted, and dictated by Dr. Lizzie Myles. Transcribed by Sandra Ramsey PA-C. Recent Labs Lab(s) Units 12/08/24 0608 12/08/24 0410 12/07/24 1954 12/07/24 1539 12/07/24 0551 12/07/24 0359 12/06/24 0526 12/06/24 0313 12/05/24 1701 12/05/24 1536 12/05/24 0800 12/05/24 0320 12/04/24 0335 12/04/24 0334 NA meq/L -- 149* -- -- -- 146* -- 146* -- -- -- 146* < > 143 K meq/L -- 3.6 -- -- -- 3.8 -- 3.9 -- -- -- 3.6 < > 3.7 CL meq/L -- 116* -- -- -- 118* -- 116* -- -- -- 117* < > 115* CO2 meq/L -- 23 -- -- -- 20* -- 20* -- -- -- 20* < > 20* BUN mg/dL -- 76.4* -- -- -- 72.9* -- 63.3* -- -- -- 59.4* < > 58.6* CREATININE mg/dL -- 2.92* -- -- -- 3.13* -- 3.37* -- -- -- 3.14* < > 3.43* ALBUMIN g/dL -- -- -- -- -- 4.1 -- 4.6 -- -- -- 4.3 -- 4.2 GLUCOSE mg/dL 136* 160* 164* 159* < > 166* < > 149* < > -- < > 148* < > 203* CALCIUM mg/dL -- 8.7 -- -- -- 8.4 -- 8.6 -- -- -- 8.3* < > 8.3* WBC K/ L -- 3.1* -- -- -- 3.5* -- 7.0 -- -- -- 4.2 < > -- PLT K/CU MM -- 54* -- -- -- 54* -- 80* -- -- -- 60* < > -- HGB GM/DL -- 8.7* -- -- -- 7.9* -- 8.7* -- 8.1* < > 8.2* < > -- < > = values in this interval not displayed. Intake/Output Summary (Last 24 hours) at 12/08/2024 0839 Last data filed at 12/07/2024 1600 Gross per 24 hour Intake -- Output 850 ml Net -850 ml Assessment 1- Anasarca - liver disease and low albumin level plus NSAID for one month 2- GERMÁN on CKD - Unknown baseline - on Lisinopril at home. Third spacing and recently increased doseof diuretics. Pre-renal azotemia - On lisinopril and NSAID and recently increased dose of diureticswith low albumin level vs HRS- Feurea 27% suggestive of pre-renal azotemia SFLC ratio 1.4, JEANA (-) ANCA (-) MPO(-), PR3(-) 4- Pancytopenia -Hematology following - S/p EGD 12/01/24showing duodenal ulcer and small varices. S/pbone marrow biopsy 5- hx of DM 6- HTN 7- NAFLD 8- Ascites Plan: - Continue with diuretics- will increase dose of bumex 1 mg po q bid. Aldactone 12.5 mg po daily - Monitor I/O strictly - Avoid nephrotoxic agents - no NSAID - Continue to hold Lisinopril and metformin for GERMÁN - Renal diet - Adjust meds per renal function - No emergent need of PHARMACOMETRICIAN - Monitor H/H and transfuse for Hgb less than 7.0 Discussed with patient Follow up with [facility] in 1-2 weeks with renal function panel * Blanka Malagon MD - 12/08/2024 7:45 AM EDT Images from the original note were not included. PULMONARY AND CRITICAL CARE Consult Note Date of Service: 12/08/2024 HPI: This is a 64 y.o. year old female with past medical history as below. She initially presented to [facility] with swollen abdomen, abdominal discomfort, and bilateral lower extremity pain. Her creatinine was elevated and as a result, she was transferred to [facility] for he patorenal syndrome. Upon arrival here, she endorsed a 4-week history of shortness of breath, orthopnea, and ataxia along with the abdominal and lower extremity edema. She also endorsed recent black, tarry stools as well. Upon arrival here, labs of significance included WBC 1.9, platelets 64, creatinine 4.15, and CK 356. She underwent a paracentesis on 11/30 with 6 liters removed. EGD on 12/01 revealed a duodenal ulcer, but no evidence of active bleeding. She underwent a bone marrow biopsy on 12/02 and pathology result is still pending. On 12/03, she began having atrial fib with some runs of non-sustained v. tach. She is currently beingtransferred to the unit and Pulmonary has been consulted for critical care management. 12/04 I have seen and examined the patient this morning, her sister at bedside, have discussed with the patient and his sister about the patient condition answered all the questions and concerns, theyexpressed transcending, discussed with nephrology about the patient condition and plan, chest x-shawna 12/04 interpreted independently showed low lung volume bilaterally with worsening pulmonary edemaand vascular congestion, on nasal cannula 3 L oxygen saturation 95%, respiratory 27, pressure 140/65, pulse 86, temperature 98.2, ABG 7.29/43/100/6 with bicarb of 21, hemoglobin 9, platelets 65, WBC 4.1, sodium 146, creatinine 3.38, fluid balance +300 mL, on ceftriaxone. 12/06: Seen and examined, 64 years old female, laying in bed, 2 L nasal cannula, never smoker, denies any home oxygen at home, has been complaining of edema in the lower extremities/abdominal girth/ascites 12/07- re consult fore warseing ABG Hypercapnia/altered mental status needing BiPAP. Patient mechanically stable, follows some commandsrepeat ABG/BiPAP. Discussed with nursing team respiratory therapist/primary team PAST MEDICAL HISTORY: Past Medical History: Diagnosis Date Cirrhosis, non-alcoholic (HCC) Diabetes mellitus (HCC) Hypertension PAST SURGICAL HISTORY: Past Surgical History: Procedure Laterality Date ESOPHAGOGASTRODUODENOSCOPY (EGD),REMOVAL FOREIGN BODY N/A 12/01/2024 Procedure: EGD, WITH FOREIGN BODY REMOVAL; Surgeon: Scott Daley MD; [facility]; Service: Gastroenterology; Laterality: N/A; Allergies: No Known Allergies SOCIAL HISTORY: Social History Tobacco Use Smoking status: Never Passive exposure: Never Smokeless tobacco: Never Substance Use Topics Alcohol use: Never Drug use: Never FAMILY HISTORY: family history is not on file. Review of Systems Constitutional: Positive for malaise/fatigue. Respiratory: Positive for shortness of breath. Negative for cough and sputum production. Cardiovascular: Positive for leg swelling. Negative for chest pain. Gastrointestinal: Negative for abdominal pain, nausea and vomiting. Neurological: Positive for weakness. All other systems reviewed and are negative. Vital Signs Temp: [97.3 ??F (36.3 ??C)-98.1 ??F (36.7 ??C)] 98.1 ??F (36.7 ??C) Pulse: [85-92] 85 Resp: [18-21] 18 BP: (149-174)/(74-81) 160/74 FiO2 (%): [50 %] 50 % Current: Temp: 98.1 ??F (36.7 ??C) Pulse: 85 Resp: 18 BP: (!) 160/74 SpO2: 99 % 24 Hour: BP Min: 149/81 Max: 174/78 Temp Min: 97.3 ??F (36.3 ??C) Max: 98.1 ??F (36.7 ??C) Pulse Min: 85 Max: 92 Resp Min: 18 Max: 21 SpO2 Min: 97 % Max: 100 % Intake/Output: I/O last 3 completed shifts: In: - Out: 850 [Urine:850] Physical Exam Constitutional: General: She is not in acute distress. Appearance: She is obese. She is ill-appearing. Comments: BiPAP recommended with nasal cannula HENT: Head: Normocephalic. Nose: Nose normal. Mouth/Throat: Mouth: Mucous membranes are moist. Pharynx: Oropharynx is clear. Eyes: Pupils: Pupils are equal, round, and reactive to light. Cardiovascular: Rate and Rhythm: Normal rate and regular rhythm. Pulses: Normal pulses. Heart sounds: Normal heart sounds. Pulmonary: Effort: Pulmonary effort is normal. No respiratory distress. Breath sounds: Examination of the right-lower field reveals decreased breath sounds. Examination ofthe left-lower field reveals decreased breath sounds. Decreased breath sounds present. Abdominal: General: Bowel sounds are normal. Palpations: Abdomen is soft. Musculoskeletal: Cervical back: Normal range of motion. Right lower leg: Edema present. Left lower leg: Edema present. Skin: General: Skin is warm and dry. Capillary Refill: Capillary refill takes less than 2 seconds. Neurological: Mental Status: She is alert and oriented to person, place, and time. Mental status is at baseline. Psychiatric: Mood and Affect: Mood normal. Behavior: Behavior normal. Vent / O2 Management: FiO2 (%): [50 %] 50 % LABS Results for orders placed or performed during the hospital encounter of 11/30/24 (from the past 24 hours) ECG 12 lead Status: None Collection Time: 12/07/24 10:29 AM Result Value Ref Range VENTRICULAR RATE EKG/MIN 91 BPM ATRIAL RATE (MCT) 91 BPM MI Interval 142 ms QRS-INTERVAL (MSEC) 88 ms QT Interval 376 ms QTC Interval 462 ms P [place] 39 degrees R AXIS (MCT) -3 degrees T Wave [place] 4 degrees Bryan Diagnosis Normal sinus rhythm Nonspecific T wave abnormality Abnormal ECG When compared with ECG of 06-DEC-2024 13:16, No significant change was found Confirmed by DEYSI FOSS M.D. ([id number]) on 12/07/2024 7:36:17 PM Blood gas, arterial Status: Abnormal Collection Time: 12/07/24 10:36 AM Result Value Ref Range pH, Arterial 7.26 (L) 7.35 - 7.45 pCO2, Arterial 50 (H) 35 - 45 mm Hg pO2, Arterial 43 (LL) 80 - 100 mm Hg HCO3, Arterial 22 20 - 26 mmol/L Base Excess, Arterial -4.7 (L) -2.0 - 2.0 mmol/L O2 Sat, Arterial 80.4 (L) 95.0 - 100.0 % CTO2 ARTERIAL 9.4 mmol/L THB ARTERIAL 8.5 (L) 12.0 - 18.0 g/dL PaO2/FIO2 calculated 203.0 [facility] COLLE[facility] SITE Right Radial Arterial Puncture Yes Blood Gas PT Temperature C 37.0 Sen's Test Acceptable Critical Values Notification Critical Blood gas called to TRAY LORENZ RN . [place] [id number] and confirmed on 12/07/2024 10:51 ABG Number of Draw Attempts 1 FIO2 21.0 Blood Gas Temperature Corrected Results No No Glucose, Nova Meter Status: Abnormal Collection Time: 12/07/24 10:54 AM Result Value Ref Range POC-GLUCOSE 146 (H) 70 - 110 mg/dL Laboratory Scientist [id number] Blood gas, arterial Status: Abnormal Collection Time: 12/07/24 2:02 PM Result Value Ref Range pH, Arterial 7.28 (L) 7.35 - 7.45 pCO2, Arterial 50 (H) 35 - 45 mm Hg pO2, Arterial 58 (L) 80 - 100 mm Hg HCO3, Arterial 24 20 - 26 mmol/L Base Excess, Arterial -3.3 (L) -2.0 - 2.0 mmol/L O2 Sat, Arterial 91.3 (L) 95.0 - 100.0 % CTO2 ARTERIAL 11.2 mmol/L THB ARTERIAL 8.9 (L) 12.0 - 18.0 g/dL [facility] S[facility] Right Radial Arterial Puncture Yes Blood Gas O2 Delivery Device Cannula Oxygen Flow Rate 2 Blood Gas PT Temperature C 37.0 Sen's Test Unacceptable Vent Mode Other Critical Values Notification Critical Blood gas called to DR MALAGON . Results [place] [id number] and confirmed on 12/07/2024 14:14 ABG Number of Draw Attempts 1 Performed by: WIL FIO2 Blood Gas Temperature Corrected Results No No Glucose, Nova Meter Status: Abnormal Collection Time: 12/07/24 3:39 PM Result Value Ref Range POC-GLUCOSE 159 (H) 70 - 110 mg/dL Laboratory Scientist [id number] ABG Status: Abnormal Collection Time: 12/07/24 4:21 PM Result Value Ref Range pH, Arterial 7.29 (L) 7.35 - 7.45 pCO2, Arterial 50 (H) 35 - 45 mm Hg pO2, Arterial 179 (H) 80 - 100 mm Hg HCO3, Arterial 24 20 - 26 mmol/L Base Excess, Arterial -2.3 (L) -2.0 - 2.0 mmol/L O2 Sat, Arterial >100.0 (H) 95.0 - 100.0 % CTO2 ARTERIAL 12.0 mmol/L THB ARTERIAL 8.4 (L) 12.0 - 18.0 g/dL PaO2/FIO2 calculated 359.0 [facility] Right Brachial Arterial Puncture Yes Blood Gas O2 Delivery Device NIV Blood Gas PT Temperature C 37.0 Sen's Test Not Applicable Critical Values Notification Critical Blood gas called to SEB LORENZ RN . Results acknowledged/read back to [id number] and confirmed on 12/07/2024 16:42 ABG Number of Draw Attempts 2 Set Rate 16.0 IPAP 10 EPAP 6 FIO2 50.0 Blood Gas Temperature Corrected Results No No Glucose, Nova Meter Status: Abnormal Collection Time: 12/07/24 7:54 PM Result Value Ref Range POC-GLUCOSE 164 (H) 70 - 110 mg/dL Laboratory Scientist [id number] Basic Metabolic Panel Status: Abnormal Collection Time: 12/08/24 4:10 AM Result Value Ref Range Sodium 149 (H) 136 - 145 meq/L Potassium 3.6 3.4 - 5.1 meq/L CO2 23 22 - 29 meq/L Chloride 116 (H) 98 - 112 meq/L Glucose 160 (H) 82 - 115 mg/dL BUN 76.4 (H) 9.8 - 20.1 mg/dL Creatinine 2.92 (H) 0.57 - 1.11 mg/dL BUN/Creatinine 26 (H) 8 - 20 Calcium 8.7 8.4 - 10.2 mg/dL Anion Gap 14 (H) 4 - 12 eGFR (mL/min/1.73m2) 18 (L) >=60 mL/min/1.73m2 Osmolality Calc 322.3 mOsm/kg CBC - [facility] Status: Abnormal Collection Time: 12/08/24 4:10 AM Result Value Ref Range WBC 3.1 (L) 4.0 - 10.0 K/??L RBC 2.84 (L) 3.93 - 5.22 M/??L Hemoglobin 8.7 (L) 11.2 - 15.7 GM/DL Hematocrit 28.2 (L) 34.1 - 44.9 % MCV 99 (H) 79 - 95 fL MCH 30.6 25.6 - 32.2 pg MCHC 30.9 (L) 32.2 - 35.5 GM/DL RDW 17.4 (H) 11.7 - 14.4 % Platelets 54 (L) 140 - 375 K/CU MM MPV 11.2 9.4 - 12.3 fL Glucose, Nova Meter Status: Abnormal Collection Time: 12/08/24 6:08 AM Result Value Ref Range POC-GLUCOSE 136 (H) 70 - 110 mg/dL Laboratory Scientist [id number] Blood gas, arterial Status: Abnormal Collection Time: 12/08/24 7:13 AM Result Value Ref Range pH, Arterial 7.26 (L) 7.35 - 7.45 pCO2, Arterial 54 (H) 35 - 45 mm Hg pO2, Arterial 80 80 - 100 mm Hg HCO3, Arterial 24 20 - 26 mmol/L Base Excess, Arterial -2.9 (L) -2.0 - 2.0 mmol/L O2 Sat, Arterial 96.7 95.0 - 100.0 % CTO2 ARTERIAL 11.8 mmol/L THB ARTERIAL 8.8 (L) 12.0 - 18.0 g/dL [facility] S[facility] Right Brachial Arterial Puncture Yes Blood Gas O2 Delivery Device Cannula Oxygen Flow Rate 4 Blood Gas PT Temperature C 37.0 Sen's Test Not Applicable Critical Values Notification Critical Blood gas called to KNOWN CONDITION . Results acknowledged/read back to [id number] and confirmed on 12/08/2024 07:30 ABG Number of Draw Attempts 1 FIO2 Blood Gas Temperature Corrected Results No No Radiology Radiology Results (last day) Procedure Component Value Units Date/Time XR chest AP portable [[id number]] Collected: 12/07/24 1550 Order Status: Completed Updated: 12/07/24 1646 Narrative: PORTABLE CHEST; HISTORY: Renal failure. COMPARISON: 1 day prior. FINDINGS: The heart is enlarged. The mediastinum is unremarkable. There has been interval improvement in interstitial opacities. There is no new infiltrate or pleural effusion. There is no pneumothorax. Impression: Interval improvement in interstitial opacities. Images reviewed, interpreted, and dictated by Dr. Lizzie Myles. Transcribed by Sandra Ramsey PA-C. Microbiology: Microbiology Results (last 7 days) Procedure Component Value Units Date/Time Fungus Culture W/ROSA MARIA Or Nimisha Ink [[id number]] Collected: 11/30/24 1603 Order Status: Completed Specimen: Peritoneal Fluid from Body Fluid Updated: 12/07/24 1700 Result No fungus isolated at 1 week. ROSA MARIA Prep No fungal elements seen Narrative: Specimen Description: peritoneal fluid AFB Culture And Stain [[id number]] Collected: 11/30/24 1603 Order Status: Completed Specimen: Peritoneal Fluid from Body Fluid Updated: 12/07/24 1700 Result No Acid Fast Bacilli isolated at 1 week. AFB Smear No acid fast bacilli seen Narrative: Specimen Description: peritoneal fluid Anaerobic Culture [[id number]] Collected: 11/30/24 1603 Order Status: Completed Specimen: Peritoneal Fluid from Body Fluid Updated: 12/05/24 0634 Result No Anaerobic growth Narrative: Specimen Description: peritoneal fluid Blood Culture [[id number]] Collected: 11/30/24 0340 Order Status: Completed Specimen: Blood from Arm, Left Updated: 12/05/24 0501 Result No growth in 5 days Blood Culture [[id number]] Collected: 11/30/24 0342 Order Status: Completed Specimen: Blood from Arm, Right Updated: 12/05/24 0501 Result No growth in 5 days Body Fluid Culture + Gram Stain [[id number]] Collected: 11/30/24 1603 Order Status: Completed Specimen: Peritoneal Fluid from Body Fluid Updated: 12/03/24 0907 Result No growth Gram Stain Result No organisms seen No cells seen Narrative: Specimen Description: peritoneal fluid Body Fluid/CSF - Path Review () [[id number]] Collected: 11/30/24 1603 Order Status: Completed Specimen: Peritoneal Fluid from Body Fluid Updated: 12/03/24 0654 SENT TO PATHOLOGY FOR REVIEW Yes Scan Result Mesothelial cells. MD German 12/02/2024 ECHO Normal sized left ventricle. Normal left ventricular wall thickness. Visually estimated ejection fraction 55% +/- 5%. Borderline systolic strain pattern. Increased left atrial pressure (Grade II diastolic dysfunction). Sclerotic aortic valve leaflets. Trivial pericardial effusion measuring 0.3cm. posteriorly ASSESSMENT: Pulmonary Acute hypoxemic/hypercapnic respiratory failure requiring BiPAP Acute pulmonary edema and pulmonary vascular congestion Never smoker GI Decompensated cirrhosis, new diagnosis MELD-NA score = 21 Hyperammonemia - improved S/p paracentesis on 11/30 - 6L removed S/p EGD on 12/01 - duodenal ulcer, no evidence of active bleeding Cardiac Grade 2 diastolic dysfunction New-onset atrial fib with non-sustained runs of v. tach - improved, on Amio gtt Renal Acute on chronic kidney disease, baseline unknown Hypernatremia PLAN: Acute hypoxic /hypercapnic respiratory failure likely related to acute pulmonary edema which is most likely related to diastolic heart failure/ Chronic kidney disease/GIORDANO cirrhosis/ascites/volume overload Ultrasound of the liver: November 2024 underlying cirrhosis Paracentesis 11/30/2024: 6 L removed Echo EF 25%, grade 2 diastolic dysfunction, increased left atrial pressure trivial pericardial effusion Chest x-ray. Acute pulmonary edema Although it is improving ABG 7.26, pCO2 54, pO2 80 Patient agreed to wear BiPAP 2 hours on 2 hours off and at night Repeating ABG, chest x-ray a.m. Picture of volume overload likely related to combination of acute diastolic heart failure/renal failure/ascites with volume overload anasarca/pericardial effusion/ascites/lower extremity edema Nephrology following, recommended to continue with albumin/diuretics no indication for PHARMACOMETRICIAN No significant pleural effusion for thoracentesis If needed repeat chest x-ray. Otherwise continue diuresis Pulmonary twill follow . If ABG not improving ,or worsening mental status recommended ICU Case discussed during round. I have personally evaluated the patient and performed a [id number] diagnostic evaluation on this patient; I have reviewed history, performed physical examination, reviewed laboratory studies. , andreviewed images independent of radiologist. I have actively directed the medical care, formulated assessemnt and plan of care. Patient requires a high complexity of decision making for assessment. 34 minutes critical care time was spent. Voice moss bleacher technology ([employer]) is used for dictation of this note and sound-alike words might be erroneously placed despite reviewing the note for accuracy.Errors in dictation may reflect use of voice recognition software and not all errors in moss bleacher may have been detectedprior to signing * Jalen Woodward OTR/L - 12/07/2024 2:26 PM EDT Images from the original note were not included. Inpatient Occupational Therapy Attempt to Treat Patient Name: Mary Coronel Birthday: 1960 Date of Attempt: 12/07/2024 Consulted with nurse, Theodora, who reported declining respiratory status and requested therapy be held until ABGs returned. OT will follow up as schedule allows. Electronically signed by Jalen Woodward OTR/L - 12/07/2024 - 3:38 PM EDT * Alvina Barragan, PT - 12/07/2024 1:17 PM EDT Images from the original note were not included. Inpatient Physical Therapy Attempt to Treat Patient Name: Mary Coronel Birthday: 1960 Date of Attempt: 12/07/2024 Pt being transferred to ICU due to lethargy and increased respiratory distress. Will hold PT today,but continue to follow. Electronically signed by lAvina Barragan, PT - 12/07/2024 - 1:17 PM EDT * Deysi Foss MD - 12/07/2024 12:42 PM EDT EP progress note Patient Name: Mary Coronel Admission Date: 11/30/2024 Primary Care Provider: [facility] Find-a-Doc Chief Complaint/Reason for Consult: No chief complaint on file. History of Present Illness: Mary Coronel is a 64 y.o. female, admitted on: 11/30/2024 1:43 AM. presented to [facility] with swollen abdomen, abdominal discomfort and bilateral lower extremity pitting edema. Patient's BUN/creatinine elevated, and patient subsequently transferred to [facility] for hepatorenal syndrome evaluation. Admits to 4 weeks of progressive SOB, FUNK, orthopnea, lower extremit y swelling, abdominal swelling, ataxia issues. States beforementioned symptoms have gotten worse over past week. Also states she has gained 16 pounds over past week. Admitts to chronic RUQ, diffuse abdominal discomfort which is worsened over past week. Reports decreased urine output x 7 days. Pt was admitted with nonalcoholic liver cirrhosis with ascites and underwent paracentesis on 11/30 with 6L removed. EGD revealed a duodenal ulcer and small varices. While on telemetry, pt is having some afib and brief runs of NSVT. Asymptomatic. BP stable. EP consulted for evaluation and management. Medications: Prior to Admission Medications: Medications Prior to Admission Medication Sig Dispense Refill Last Dose/Taking albuterol 90 mcg/actuation inhaler Inhale 1 puff by mouth every 6 (six) hours as needed for wheezing. ammonium lactate (AMLACTIN) 12 % cream Apply 1 g topically as needed for dry skin. aspirin 81 MG chewable tablet Take 1 tablet (81 mg total) by mouth daily. atorvastatin (LIPITOR) 20 MG tablet Take 1 tablet (20 mg total) by mouth nightly. bisoprolol (ZEBETA) 10 MG tablet Take 1 tablet (10 mg total) by mouth 2 (two) times daily. cholecalciferol (VITAMIN D3) 125 mcg (5,000 unit) tablet Take 2 tablets (10,000 Units total) by mouth daily. clopidogreL (PLAVIX) 75 mg tablet Take 1 tablet (75 mg total) by mouth daily Look-alike/Sound-alike medication. colestipoL (COLESTID) 1 gram tablet Take 2 tablets (2 g total) by mouth daily. dicyclomine (BENTYL) 10 MG capsule Take 1 capsule (10 mg total) by mouth 2 (two) times daily. furosemide (LASIX) 40 MG tablet Take 1 tablet (40 mg total) by mouth 2 (two) times daily. HYDROcodone-acetaminophen (NORCO) 10-325 mg per tablet Take 1 tablet by mouth every 6 (six) hours as needed for pain. Max Daily Amount: 4 tablets hydrOXYzine pamoate (VISTARIL) 50 MG capsule Take 1 capsule (50 mg total) by mouth every night as needed for itching (sleep) Look-alike/Sound-alike medication. insulin aspart U-100 (NovoLOG) 100 unit/mL (3 mL) inpn Inject under the skin 4 (four) times daily before meals and nightly. [DISCONTINUED] gabapentin (NEURONTIN) 800 MG tablet Take 1 tablet (800 mg total) by mouth 3 (three)times daily. Max Daily Amount: 2,400 mg [DISCONTINUED] lisinopriL (ZESTRIL) 10 MG tablet Take 1 tablet (10 mg total) by mouth 2 (two) timesdaily. [DISCONTINUED] metFORMIN (GLUCOPHAGE) 1000 MG tablet Take 1 tablet (1,000 mg total) by mouth 2 (two) times daily with breakfast and dinner Look-alike/Sound-alike medication. [DISCONTINUED] tirzepatide 7.5 mg/0.5 mL pnij Inject 7.5 mg under the skin every 7 days. [DISCONTINUED] triamcinolone (KENALOG) 0.1 % topical cream Apply 0.1 Applications topically daily to affected area.. Scheduled Medications: amiodarone 200 mg oral Daily 200 mg at 12/07/24 0937 amoxicillin-clavulanate 1 tablet oral BID 1 tablet at 12/07/24 0942 atorvastatin 20 mg oral Every Night 20 mg at 12/06/24 2100 bumetanide 1 mg oral Daily 1 mg at 12/07/24 1232 ergocalciferol 50,000 Units oral Q7 Days 50,000 Units at 11/30/24 1459 gabapentin 200 mg oral TID 200 mg at 12/07/24 0936 insulin lispro 0-18 Units subcutaneous 4x Daily AC 3 Units at 12/07/24 0643 lactulose 10 g oral BID 10 g at 12/07/24 0936 pantoprazole 40 mg oral BID 40 mg at 12/07/24 0937 rifAXIMin 550 mg oral BID 550 mg at 12/07/24 0936 spironolactone 12.5 mg oral Every Other Day 12.5 mg at 12/07/24 1233 Current Infusions: Current Facility-Administered Medications Medication Dose Route Frequency Provider Last Rate Last Admin acetaminophen (TYLENOL) tablet 500 mg 500 mg oral Q4H PRN Huey Hurtado MD albuterol 2.5 mg /3 mL (0.083 %) nebulizer solution 2.5 mg 2.5 mg nebulization Q6H PRN Albert Garcia MD amiodarone (PACERONE) tablet 200 mg 200 mg oral Daily Deysi Foss MD 200 mg at 12/07/24 0937 ammonium lactate (LAC-HYDRIN) lotion 12% topical PRN Huey Hurtado MD amoxicillin-clavulanate (AUGMENTIN) 500-125 mg per tablet 1 tablet 1 tablet oral BID Mary Carmen Mcfadden MD 1 tablet at 12/07/24 0942 atorvastatin (LIPITOR) tablet 20 mg 20 mg oral Every Night Huey Hurtado MD 20 mg at 12/06/24 2100 benzocaine-menthoL (CEPACOL) lozenge 1 lozenge 1 lozenge buccal Q2H PRN Timothy Bai MD bumetanide (BUMEX) tablet 1 mg 1 mg oral Daily Alejandrejax Boo MD 1 mg at 12/07/24 1232 dextrose 50% (D50W) injection 25 g 25 g intravenous Q15 Min PRN Huey Hurtado MD ergocalciferol (DRISDOL) capsule 50,000 Units 50,000 Units oral Q7 Days Timothy Bai MD 50,000 Units at 11/30/24 1459 gabapentin (NEURONTIN) capsule 200 mg 200 mg oral TID Hill Boo MD 200 mg at 12/07/24 0936 glucagon injection 1 mg 1 mg intraMUSCULAR Q15 Min PRN Huey Hurtado MD glucose chew tab 16 g 16 g oral Q15 Min PRN Huey Hurtado MD hydrALAZINE (APRESOLINE) injection 10 mg 10 mg intravenous Q6H PRN Huey Hurtado MD 10 mg at 12/04/24 0349 insulin lispro (HUMALOG, ADMELOG) injection 0-18 Units 0-18 Units subcutaneous 4x Daily AC Huey Hurtado MD 3 Units at 12/07/24 0643 lactulose (CHRONULAC) 10 gram/15 mL solution 10 g 10 g oral BID Timothy Bai MD 10 g at 12/07/24 0936 melatonin tablet 3 mg 3 mg oral Every Night PRN Huey Hurtado MD ondansetron (ZOFRAN-ODT) disintegrating tablet 4 mg 4 mg oral Q8H PRN Huey Hurtado MD Or ondansetron (ZOFRAN) injection 4 mg 4 mg intravenous Q8H PRN Huey Hurtado MD pantoprazole (PROTONIX) EC tablet 40 mg 40 mg oral BID Mary Carmen Mcfadden MD 40 mg at 12/07/24 0937 [Held by provider] phenylephrine (SILVIA-SYNEPHRINE) 40 mg in sodium chloride 0.9 % (NS) 250 mL infusion 20-260 mcg/min intravenous Titrated Timothy Bai MD Stopped at 12/04/24 1039 prochlorperazine (COMPAZINE) injection 10 mg 10 mg intravenous Q6H PRN Huey Hurtado MD rifAXIMin (XIFAXAN) tablet 550 mg 550 mg oral BID Destiney Llanes APRN 550 mg at 12/07/24 0936 sodium chloride 0.9 % infusion 20 mL/hr intravenous Once Denilson Hodgson DO sodium chloride flush 10 mL 10 mL intravenous PRN Huey Hurtado MD spironolactone (ALDACTONE) tablet 12.5 mg 12.5 mg oral Every Other Day Hill Boo MD 12.5 mg at12/07/24 1233 More meds No current facility-administered medications on file prior to encounter. Current Outpatient Medications on File Prior to Encounter Medication Sig Dispense Refill albuterol 90 mcg/actuation inhaler Inhale 1 puff by mouth every 6 (six) hours as needed for wheezing. ammonium lactate (AMLACTIN) 12 % cream Apply 1 g topically as needed for dry skin. aspirin 81 MG chewable tablet Take 1 tablet (81 mg total) by mouth daily. atorvastatin (LIPITOR) 20 MG tablet Take 1 tablet (20 mg total) by mouth nightly. bisoprolol (ZEBETA) 10 MG tablet Take 1 tablet (10 mg total) by mouth 2 (two) times daily. cholecalciferol (VITAMIN D3) 125 mcg (5,000 unit) tablet Take 2 tablets (10,000 Units total) by mouth daily. clopidogreL (PLAVIX) 75 mg tablet Take 1 tablet (75 mg total) by mouth daily Look-alike/Sound-alike medication. colestipoL (COLESTID) 1 gram tablet Take 2 tablets (2 g total) by mouth daily. dicyclomine (BENTYL) 10 MG capsule Take 1 capsule (10 mg total) by mouth 2 (two) times daily. furosemide (LASIX) 40 MG tablet Take 1 tablet (40 mg total) by mouth 2 (two) times daily. HYDROcodone-acetaminophen (NORCO) 10-325 mg per tablet Take 1 tablet by mouth every 6 (six) hours as needed for pain. Max Daily Amount: 4 tablets hydrOXYzine pamoate (VISTARIL) 50 MG capsule Take 1 capsule (50 mg total) by mouth every night as needed for itching (sleep) Look-alike/Sound-alike medication. insulin aspart U-100 (NovoLOG) 100 unit/mL (3 mL) inpn Inject under the skin 4 (four) times daily before meals and nightly. [DISCONTINUED] gabapentin (NEURONTIN) 800 MG tablet Take 1 tablet (800 mg total) by mouth 3 (three)times daily. Max Daily Amount: 2,400 mg Problem list and diagnosis Patient Active Problem List Diagnosis Anasarca Melena 1. Melena Case request operating room: ESOPHAGOGASTRODUODENOSCOPY (EGD) Case request operating room: ESOPHAGOGASTRODUODENOSCOPY (EGD) Lactate dehydrogenase (LDH), body fluid Lactate dehydrogenase (LDH), body fluid Body fluid cell count with differential Body fluid cell count with differential Body Fluid Culture + Gram Stain Body Fluid Culture + Gram Stain Anaerobic Culture Anaerobic Culture Fungus Culture W/ROSA MARIA Or Nimisha Ink Fungus Culture W/ROSA MARIA Or Nimisha Ink AFB Culture And Stain AFB Culture And Stain [facility] Non-Optometric Assistant Cytology [facility] Non-Optometric Assistant Cytology DIFFERENTIAL, BODY FLUID DIFFERENTIAL, BODY FLUID Body Fluid/CSF - Path Review () Body Fluid/CSF - Path Review () [facility] BONE MARROW SMEAR, ASPIRATION, AND STAIN [facility] BONE MARROW SMEAR, ASPIRATION, AND STAIN CANCELED: Glucose Body Fluid(SENDOUT) CANCELED: Glucose Body Fluid(SENDOUT) CANCELED: Total Protein, Body Fluid(SENDOUT) CANCELED: Total Protein, Body Fluid(SENDOUT) Past Medical History: Past Medical History: Diagnosis Date Cirrhosis, non-alcoholic (HCC) Diabetes mellitus (HCC) Hypertension Past Surgical History: Past Surgical History: Procedure Laterality Date ESOPHAGOGASTRODUODENOSCOPY (EGD),REMOVAL FOREIGN BODY N/A 12/01/2024 Procedure: EGD, WITH FOREIGN BODY REMOVAL; Surgeon: Scott Daley MD; [facility]; Service: Gastroenterology; Laterality: N/A; Allergies: No Known Allergies Social History: Tobacco Use Smoking status: Never Passive exposure: Never Smokeless tobacco: Never Substance Use Topics Alcohol use: Never Drug use: Never Marital Status: Family History: No family history on file. Review of Systems: Constitutional: Negative except as documented in history of present illness. Eye: Negative except as documented in history of present illness. Ear/Nose/Mouth/Throat: Negative except as documented in history of present illness. Respiratory: Negative except as documented in history of present illness. Cardiovascular: Negative except as documented in history of present illness. Gastrointestinal: Negative except as documented in history of present illness. Genitourinary: Negative except as documented in history of present illness. Hematology/Lymphatics: Negative except as documented in history of present illness. Endocrine: Negative except as documented in history of present illness. Immunologic: Negative except as documented in history of present illness. Musculoskeletal: Negative except as documented in history of present illness. Integumentary: Negative except as documented in history of present illness. Neurologic: Negative except as documented in history of present illness. Psychiatric: Negative except as documented in history of present illness. Physical Exam: Blood pressure 123/60, pulse 73, temperature 98.2 ??F (36.8 ??C), temperature source Oral, resp. rate 18, height 1.676 m (5' 6 ), weight 98.2 kg (216 lb 6.4 oz), SpO2 98%. General: Alert and oriented. Ill-appearing Eye: Pupils are equal, round and reactive to light. HENT: Normocephalic. Neck: Supple, Non-tender, No carotid bruit, No jugular venous distention. Respiratory: Decreased breath sound bilateral, Respirations are non-labored. Cardiovascular: regular rhythm, No murmur Gastrointestinal: Soft, Non-tender, slightly distended, Normal bowel sounds. Musculoskeletal: Normal range of motion. Integumentary: Warm, Dry, [place]. Neurologic: No obvious focal deficit Psychiatric: Cooperative, Appropriate mood & affect. Labs, Imaging, and Other Studies: Echo Results (last 7 days) Procedure Component Value Units Date/Time ECHO COMPLETE (DOPPLER / COLOR) W OR WO CONTRAST [[id number]] Collected: 11/30/24724 Order Status: Completed Updated: 11/30/24 1046 Narrative: TRANSTHORACIC ECHOCARDIOGRAPHY REPORT Demographics Patient Name: RIN JONES : 1960 Age: 64 year(s) Corporate ID Number: [id number] Gender Female Container Repairer: Giovanna Rock Height: 67 inches [facility] Referring Physician: HUEY HURTADO Weight: 225 pounds Interpreting JESSICA RAYMOND MD BMI: 35.24 kg/m^2 Physician: Date of Service: 11/30/2024 Blood Pressure: 118/59 mmHg Room Number: 579 Type of Study: TTE procedure: ECHO COMPLETE (DOPPLER / COLOR) W OR WO CONTRAST. Patient Status: Routine IP Study Location: [facility] Quality: Adequate visualization History/Tech Notes: Indication: shortness of breath R06.02 Impression: ######################################## Normal sized left ventricle. Normal left ventricular wall thickness. Visually estimated ejection fraction 55% +/- 5%. Borderline systolic strain pattern. Increased left atrial pressure (Grade II diastolic dysfunction). Sclerotic aortic valve leaflets. Trivial pericardial effusion measuring 0.3cm. posteriorly. ######################################## Measurements Summary: LVEDd: 5.33 cm LVESd: 3.64 cm IVSEd: 0.88 cm AO Root:2.7 cm LVPWd: 0.87 cm Contractility Score Normal Left Ventricular contractility was noted. LV regional wall motion: (0-Not visualized 1-Normal 2-Hypokinesis 3-Akinesis 4-Dyskinesis 5-Aneurysm) Left Ventricle Peak E-wave: 1.31 Peak A-wave: 1.35 m/s E/A ratio: 0.97 m/s Volume [id number] LV length: 8.51 cm ml Volume .96 ml LVOT diameter: 1.79 cm Normal sized left ventricle. Normal left ventricular wall thickness. Visually estimated ejection fraction 55% +/- 5%. Borderline systolic strain pattern. Increased left atrial pressure (Grade II diastolic dysfunction). No left ventricular masses or thrombi. Right Ventricle Diastolic dimension: 3.92 RV systolic pressure: 28.12 mmHg cm Normal sized right ventricle. Normal TAPSE c/w normal right ventricular function Left Atrium LA dimension: 4 cm LA volume:83.13 ml LA/Aorta: 1.48 Abnormal left atrial volume index 39 ml/m^2. Intact atrial septum. No atrial mass or thrombus. Right Atrium Normal sized right atrium. Intact atrial septum. No atrial mass or thrombus. Mitral Valve Deceleration time: 261.56 msec Thickened mitral valve leaflets. Mild (1+) mitral regurgitation. No mitral stenosis. No masses or vegetations seen. Aortic Valve AV VTI: 53.02 Area continuity: 1.13 Peak velocity: 2.38 m/s cm cm^2 Peak gradient: 22.63 LVOT VTI: 23.85 Mean velocity: 1.76 mmHg cm m/s Mean gradient: 13.56 mmHg Sclerotic aortic valve leaflets. Mildly thickend free edges of the aortic valve leaflets. No aortic regurgitation. No aortic stenosis. No masses or vegetations seen. Tricuspid Valve TR velocity: 2.51 m/s TR gradient: 25.51707 mmHg Estimated RAP: 3 mmHg RVSP: 28.12 mmHg Structurally normal tricuspid valve. Trace tricuspid valve regurgitation. No tricuspid stenosis. No masses or vegetations seen. Pulmonic Valve Acceleration time: 110.37 msec PASP: 28.12 mmHg Structurally normal pulmonic valve. Trace pulmonary valve regurgitation. No pulmonic stenosis. No masses or vegetations seen. Great Vessels Aorta Aortic Root: 2.7 cm LVOT Diameter: 1.79 cm Visualized thoracic aorta is normal. Normal aortic root. No evidence of dissection. Normal IVC with appropriate collapse. Pericardium / Pleura Trivial pericardial effusion measuring 0.3cm. posteriorly. Other Ascites noted in subcostal imaging. Sodium Date Value Ref Range Status 12/07/2024 146 (H) 136 - 145 meq/L Final Potassium Date Value Ref Range Status 12/07/2024 3.8 3.4 - 5.1 meq/L Final Chloride Date Value Ref Range Status 12/07/2024 118 (H) 98 - 112 meq/L Final CO2 Date Value Ref Range Status 12/07/2024 20 (L) 22 - 29 meq/L Final BUN Date Value Ref Range Status 12/07/2024 72.9 (H) 9.8 - 20.1 mg/dL Final Creatinine Date Value Ref Range Status 12/07/2024 3.13 (H) 0.57 - 1.11 mg/dL Final eGFR (mL/min/1.73m2) Date Value Ref Range Status 12/07/2024 16 (L) >=60 mL/min/1.73m2 Final Calcium Date Value Ref Range Status 12/07/2024 8.4 8.4 - 10.2 mg/dL Final WBC Date Value Ref Range Status 12/07/2024 3.5 (L) 4.0 - 10.0 K/??L Final 12/06/2024 7.0 4.0 - 10.0 K/??L Final 12/05/2024 4.2 4.0 - 10.0 K/??L Final RBC Date Value Ref Range Status 12/07/2024 2.58 (L) 3.93 - 5.22 M/??L Final 12/06/2024 2.83 (L) 3.93 - 5.22 M/??L Final 12/05/2024 2.64 (L) 3.93 - 5.22 M/??L Final Hemoglobin Date Value Ref Range Status 12/07/2024 7.9 (L) 11.2 - 15.7 GM/DL Final 12/06/2024 8.7 (L) 11.2 - 15.7 GM/DL Final 12/05/2024 8.1 (L) 11.2 - 15.7 GM/DL Final Hematocrit Date Value Ref Range Status 12/07/2024 25.6 (L) 34.1 - 44.9 % Final 12/06/2024 28.2 (L) 34.1 - 44.9 % Final 12/05/2024 25.9 (L) 34.1 - 44.9 % Final Platelets Date Value Ref Range Status 12/07/2024 54 (L) 140 - 375 K/CU MM Final 12/06/2024 80 (L) 140 - 375 K/CU MM Final 12/05/2024 60 (L) 140 - 375 K/CU MM Final No results found for: TSH , MAGNESIUM .[facility] Lab Results Component Value Date K 3.8 12/07/2024 Lab Results Component Value Date CREATININE 3.13 (H) 12/07/2024 No results found for: TSH No results found for: MAGNESIUM AST Date Value Ref Range Status 12/07/2024 24 11 - 34 U/L Final Comment: AST2 reagent used for testing does not contain P5P supplementation and therefore may miss AST elevations in patients with B6 deficiency. This population may be as high as 10% in the [place], with risk factors including malabsorption, drug interactions, and alcoholic hepatitis. ALT Date Value Ref Range Status 12/07/2024 9 <=34 U/L Final Comment: ALT2 reagent used for testing does not contain P5P supplementation and therefore may miss ALT elevations in patients with B6 deficiency. This population may be as high as 10% in the [place], with risk factors including malabsorption, drug interactions, and alcoholic hepatitis. Echo Results (last 7 days) Procedure Component Value Units Date/Time ECHO COMPLETE (DOPPLER / COLOR) W OR WO CONTRAST [[id number]] Collected: 11/30/24724 Order Status: Completed Updated: 11/30/24 104 Narrative: TRANSTHORACIC ECHOCARDIOGRAPHY REPORT Demographics Patient Name: RIN JONES : 1960 Age: 64 year(s) Corporate ID Number: [id number] Gender Female Container Repairer: Giovanna Pranav Height: 67 inches [facility] Referring Physician: HUEY HURTADO Weight: 225 pounds Interpreting JESSICA RAYMOND MD BMI: 35.24 kg/m^2 Physician: Date of Service: 11/30/2024 Blood Pressure: 118/59 mmHg Room Number: 579 Type of Study: TTE procedure: ECHO COMPLETE (DOPPLER / COLOR) W OR WO CONTRAST. Patient Status: Routine IP Study Location: [facility] Quality: Adequate visualization History/Tech Notes: Indication: shortness of breath R06.02 Impression: ######################################## Normal sized left ventricle. Normal left ventricular wall thickness. Visually estimated ejection fraction 55% +/- 5%. Borderline systolic strain pattern. Increased left atrial pressure (Grade II diastolic dysfunction). Sclerotic aortic valve leaflets. Trivial pericardial effusion measuring 0.3cm. posteriorly. ######################################## Measurements Summary: LVEDd: 5.33 cm LVESd: 3.64 cm IVSEd: 0.88 cm AO Root:2.7 cm LVPWd: 0.87 cm Contractility Score Normal Left Ventricular contractility was noted. LV regional wall motion: (0-Not visualized 1-Normal 2-Hypokinesis 3-Akinesis 4-Dyskinesis 5-Aneurysm) Left Ventricle Peak E-wave: 1.31 Peak A-wave: 1.35 m/s E/A ratio: 0.97 m/s Volume [id number] LV length: 8.51 cm ml Volume frwljotz63.96 ml LVOT diameter: 1.79 cm Normal sized left ventricle. Normal left ventricular wall thickness. Visually estimated ejection fraction 55% +/- 5%. Borderline systolic strain pattern. Increased left atrial pressure (Grade II diastolic dysfunction). No left ventricular masses or thrombi. Right Ventricle Diastolic dimension: 3.92 RV systolic pressure: 28.12 mmHg cm Normal sized right ventricle. Normal TAPSE c/w normal right ventricular function Left Atrium LA dimension: 4 cm LA volume:83.13 ml LA/Aorta: 1.48 Abnormal left atrial volume index 39 ml/m^2. Intact atrial septum. No atrial mass or thrombus. Right Atrium Normal sized right atrium. Intact atrial septum. No atrial mass or thrombus. Mitral Valve Deceleration time: 261.56 msec Thickened mitral valve leaflets. Mild (1+) mitral regurgitation. No mitral stenosis. No masses or vegetations seen. Aortic Valve AV VTI: 53.02 Area continuity: 1.13 Peak velocity: 2.38 m/s cm cm^2 Peak gradient: 22.63 LVOT VTI: 23.85 Mean velocity: 1.76 mmHg cm m/s Mean gradient: 13.56 mmHg Sclerotic aortic valve leaflets. Mildly thickend free edges of the aortic valve leaflets. No aortic regurgitation. No aortic stenosis. No masses or vegetations seen. Tricuspid Valve TR velocity: 2.51 m/s TR gradient: 25.41269 mmHg Estimated RAP: 3 mmHg RVSP: 28.12 mmHg Structurally normal tricuspid valve. Trace tricuspid valve regurgitation. No tricuspid stenosis. No masses or vegetations seen. Pulmonic Valve Acceleration time: 110.37 msec PASP: 28.12 mmHg Structurally normal pulmonic valve. Trace pulmonary valve regurgitation. No pulmonic stenosis. No masses or vegetations seen. Great Vessels Aorta Aortic Root: 2.7 cm LVOT Diameter: 1.79 cm Visualized thoracic aorta is normal. Normal aortic root. No evidence of dissection. Normal IVC with appropriate collapse. Pericardium / Pleura Trivial pericardial effusion measuring 0.3cm. posteriorly. Other Ascites noted in subcostal imaging. Assessment and Plan: *Paroxysmal Atrial Fib [id number] of 2 also have some wide-complex tachycardia aberrancy versus nonsustained VT longest about 10 beats echocardiogram showed normal EF in November 2024 patient seems asymptomatic *Non-alcoholic Liver Cirrhosis decompensated with ascites status post paracentesis 6 L removed on 11/30/2024 also underwent an EGD that shows duodenal ulcer but no evidence of active bleeding *CAD *Diabetes mellitus *HTN *HLD *pancytopenia *GERMÁN current GFR 15. Plan: 12/07/2024 Labs and telemetry reviewed. Patient maintained sinus rhythm. Keep amiodarone 200 mg twice a day for 1 month then 200 mg daily. 12/06/2024 Labs and telemetry reviewed. No arrhythmia overnight. Continue amiodarone loading. 12/05/2024 Labs and telemetry reviewed. Patient remains in sinus rhythm. Stop IV amiodarone. Transfer on the floor. Continue p.o. amiodarone 12/04/2024 Labs and telemetry reviewed. Patient had no arrhythmia overnight. Antiarrhythmic logan we are limited with kidney failure. Will do low-dose of amiodarone for now g even though she has some liver failure. Will use low-dose and monitor liver enzymes. 12/03/2024 Labs and telemetry reviewed. Keep electrolytes within normal limit. Patient received a bolus of amiodarone that converted her. If further arrhythmia can always do bolus drip of amiodarone however concern is due to liver function. Further recommendations pending testing results, clinical course, and response to therapy. * Mary Carmen Mcfadden MD - 12/07/2024 11:09 AM EDT Subjective Patient today lethargic Patient shortness of breath generalized weakness No nausea or vomiting No fever Last Recorded Vitals Blood pressure 123/60, pulse 73, temperature 98.2 ??F (36.8 ??C), temperature source Oral, resp. rate 18, height 1.676 m (5' 6 ), weight 98.2 kg (216 lb 6.4 oz), SpO2 98%. Physical Exam Head atraumatic normocephalic Pupils round and reactive Eyes no conjunctival injection or discharge Ears no discharge Nose no bleeding or discharge Mouth dry Neck supple full range of motion Chest Diminished in the bilateral breath expiratory wheezes Heart S1 and S2 healed regular rate Abdomen soft audible bowel sounds no tenderness Extremities no edema erythema or tenderness Neurological patient alert awake move extremities Psychiatric anxiety Skin no apparent rashes Endocrine no thyromegaly tenderness General Patient in bed mild distress Labs: Results for orders placed or performed during the hospital encounter of 11/30/24 (from the past 24 hours) ECG 12 lead Status: None (In process) Collection Time: 12/06/24 1:16 PM Result Value Ref Range VENTRICULAR RATE EKG/MIN 90 BPM ATRIAL RATE (MCT) 90 BPM MI Interval 142 ms QRS-INTERVAL (MSEC) 92 ms QT Interval 378 ms QTC Interval 462 ms P [place] 28 degrees R AXIS (MCT) -4 degrees T Wave [place] 21 degrees Bryan Diagnosis Normal sinus rhythm Septal infarct , age undetermined Abnormal ECG When compared with ECG of 04-DEC-2024 20:08, Septal infarct is now present Nonspecific T wave abnormality no longer evident in Anterior leads Glucose, Nova Meter Status: Abnormal Collection Time: 12/06/24 4:06 PM Result Value Ref Range POC-GLUCOSE 134 (H) 70 - 110 mg/dL Laboratory Scientist [id number] Glucose, Nova Meter Status: Abnormal Collection Time: 12/06/24 7:26 PM Result Value Ref Range POC-GLUCOSE 170 (H) 70 - 110 mg/dL Laboratory Scientist [id number] CBC - Hemogram (-BKR) Status: Abnormal Collection Time: 12/07/24 3:59 AM Result Value Ref Range WBC 3.5 (L) 4.0 - 10.0 K/??L RBC 2.58 (L) 3.93 - 5.22 M/??L Hemoglobin 7.9 (L) 11.2 - 15.7 GM/DL Hematocrit 25.6 (L) 34.1 - 44.9 % MCV 99 (H) 79 - 95 fL MCH 30.6 25.6 - 32.2 pg MCHC 30.9 (L) 32.2 - 35.5 GM/DL RDW 17.4 (H) 11.7 - 14.4 % Platelets 54 (L) 140 - 375 K/CU MM MPV 12.2 9.4 - 12.3 fL Magnesium Status: Normal Collection Time: 12/07/24 3:59 AM Result Value Ref Range Magnesium 2.4 1.6 - 2.6 mg/dL Comprehensive Metabolic Panel Status: Abnormal Collection Time: 12/07/24 3:59 AM Result Value Ref Range Sodium 146 (H) 136 - 145 meq/L Potassium 3.8 3.4 - 5.1 meq/L Chloride 118 (H) 98 - 112 meq/L CO2 20 (L) 22 - 29 meq/L Calcium 8.4 8.4 - 10.2 mg/dL Glucose 166 (H) 82 - 115 mg/dL BUN 72.9 (H) 9.8 - 20.1 mg/dL Creatinine 3.13 (H) 0.57 - 1.11 mg/dL BUN/Creatinine 23 (H) 8 - 20 eGFR (mL/min/1.73m2) 16 (L) >=60 mL/min/1.73m2 Albumin 4.1 3.5 - 5.0 g/dL Alkaline Phosphatase 48 40 - 150 U/L ALT 9 <=34 U/L AST 24 11 - 34 U/L Total Bilirubin 0.9 0.2 - 1.2 mg/dL Protein, Total 6.4 6.4 - 8.3 g/dL Globulin 2.3 (L) 2.5 - 4.1 g/dL Anion Gap 12 4 - 12 A/G Ratio 1.8 0.7 - 1.9 Osmolality Calc 315.8 mOsm/kg Ammonia Status: Normal Collection Time: 12/07/24 3:59 AM Result Value Ref Range Ammonia 44 18 - 72 ??mol/L Glucose, Nova Meter Status: Abnormal Collection Time: 12/07/24 5:51 AM Result Value Ref Range POC-GLUCOSE 159 (H) 70 - 110 mg/dL Laboratory Scientist [id number] ECG 12 lead Status: None (In process) Collection Time: 12/07/24 10:29 AM Result Value Ref Range VENTRICULAR RATE EKG/MIN 91 BPM ATRIAL RATE (MCT) 91 BPM MI Interval 142 ms QRS-INTERVAL (MSEC) 88 ms QT Interval 376 ms QTC Interval 462 ms P [place] 39 degrees R AXIS (MCT) -3 degrees T Wave [place] 4 degrees Bryan Diagnosis Normal sinus rhythm Nonspecific T wave abnormality Abnormal ECG When compared with ECG of 06-DEC-2024 13:16, No significant change was found Glucose, Nova Meter Status: Abnormal Collection Time: 12/07/24 10:54 AM Result Value Ref Range POC-GLUCOSE 146 (H) 70 - 110 mg/dL Laboratory Scientist [id number] XR chest AP portable Narrative: PORTABLE CHEST; HISTORY: Respiratory failure. COMPARISON: December 04, 2024. FINDINGS: The heart is normal in size. The mediastinum is unremarkable there is pulmonary edema. There is no pneumothorax. The osseous structures or anterior cervical fusion in the lower cervical spine. Impression: Pulmonary edema. Images reviewed, interpreted, and dictated by Dr. Mike Pichardo. Transcribed by Sandra Ramsey PA-C. Assessment Anasarca Paroxysmal Atrial Fib *CAD *Diabetes mellitus *HTN *HLD *pancytopenia *GERMÁN current GFR 15. Nonalcoholic liver cirrhosis with ascites Ascites Status post paracentesis Duodenal ulcer Anasarca Diabetes mellitus Acute renal failure 12/07/2024 Plan PT OT Monitor kidney function No emergent dialysis Labs in a.m. Check blood gas Consult pulmonary Discharge Planning: Patient not ready to be discharged blood gas ordered Need to be transferred to ICU education general manager working discharge plan * Lian Dominguez RN - 12/07/2024 10:00 AM EDTSummary: MDRPI MDRPI found on patients left anterior thigh due to urinary catheter tubing. Cosigned by Mary Carmen Mcfadden MD at 12/07/2024 5:11 PM EDT * Lian Dominguez RN - 12/07/2024 9:53 AM EDTSummary: Wound care Images from the original note were not included. Wound 12/07/24 Pressure Injury Leg upper Anterior;Left (Active) Date First Assessed/Time First Assessed: 12/07/24 0952 Present on Original Admission: No Primary Wound Type: Pressure Injury Location: Leg upper Wound Location Orientation: Anterior;Left Assessments 12/07/2024 9:52 AM Wound Image No associated orders. 12/07/24 0953 Wound 12/07/24 Pressure Injury Leg upper Anterior;Left Date First Assessed/Time First Assessed: 12/07/24951 Present on Original Admission: No Primary Wound Type: Pressure Injury Location: Leg upper Wound Location Orientation: Anterior;Left Site Assessment Red;Yellow [place]-Wound Assessment [place] Odor None Pressure Injury Stage 2 Wound care performing NDNQI rounds. Patient on JORJE surface, agreeable to assessment. During head totoe skin inspection a MDRPI found on patients left anterior thigh due to urinary catheter tubing. MDRPI verified by second wound care prepared foods production team member. [facility] RN recommends cleansing site with NS, pat dry, apply medihoney and cover with silicone bordered foam dressing. PIP guidelines to be implemented by nursing staff. Please contact wound care team if wound worsens. * Hill Boo MD - 12/07/2024 9:22 AM EDT Subjective No acute events overnight. No new complain Review of Systems No CP, SOA, N/V, fever, chills or rash Objective Last Recorded Vitals Blood pressure 123/60, pulse 73, temperature 98.2 ??F (36.8 ??C), temperature source Oral, resp. rate 18, height 1.676 m (5' 6 ), weight 98.2 kg (216 lb 6.4 oz), SpO2 98%. Physical Exam Gen: Alert, NAD HEENT: NC, AT Neck: Supple, no JVD Lungs: CTA. Non labored, symetrical chest expansion CVS: SI/S2 audible. RRR, No M/G noted Abd: soft, NT, ND, BS + Ext: +++ Pedal edema , no cyanosis WALLPAPERER HELPER: Alert, No focal deficit noted grossly Psy: Cooperative Labs: Results for orders placed or performed during the hospital encounter of 11/30/24 (from the past 24 hours) Glucose, Nova Meter Status: Abnormal Collection Time: 12/06/24 10:36 AM Result Value Ref Range POC-GLUCOSE 150 (H) 70 - 110 mg/dL Laboratory Scientist [id number] ECG 12 lead Status: None (In process) Collection Time: 12/06/24 1:16 PM Result Value Ref Range VENTRICULAR RATE EKG/MIN 90 BPM ATRIAL RATE (MCT) 90 BPM MI Interval 142 ms QRS-INTERVAL (MSEC) 92 ms QT Interval 378 ms QTC Interval 462 ms P [place] 28 degrees R AXIS (MCT) -4 degrees T Wave [place] 21 degrees [place] Diagnosis Normal sinus rhythm Septal infarct , age undetermined Abnormal ECG When compared with ECG of 04-DEC-2024 20:08, Septal infarct is now present Nonspecific T wave abnormality no longer evident in Anterior leads Glucose, Nova Meter Status: Abnormal Collection Time: 12/06/24 4:06 PM Result Value Ref Range POC-GLUCOSE 134 (H) 70 - 110 mg/dL Laboratory Scientist [id number] Glucose, Nova Meter Status: Abnormal Collection Time: 12/06/24 7:26 PM Result Value Ref Range POC-GLUCOSE 170 (H) 70 - 110 mg/dL Laboratory Scientist [id number] CBC - Hemogram (-[facility]) Status: Abnormal Collection Time: 12/07/24 3:59 AM Result Value Ref Range WBC 3.5 (L) 4.0 - 10.0 K/??L RBC 2.58 (L) 3.93 - 5.22 M/??L Hemoglobin 7.9 (L) 11.2 - 15.7 GM/DL Hematocrit 25.6 (L) 34.1 - 44.9 % MCV 99 (H) 79 - 95 fL MCH 30.6 25.6 - 32.2 pg MCHC 30.9 (L) 32.2 - 35.5 GM/DL RDW 17.4 (H) 11.7 - 14.4 % Platelets 54 (L) 140 - 375 K/CU MM MPV 12.2 9.4 - 12.3 fL Magnesium Status: Normal Collection Time: 12/07/24 3:59 AM Result Value Ref Range Magnesium 2.4 1.6 - 2.6 mg/dL Comprehensive Metabolic Panel Status: Abnormal Collection Time: 12/07/24 3:59 AM Result Value Ref Range Sodium 146 (H) 136 - 145 meq/L Potassium 3.8 3.4 - 5.1 meq/L Chloride 118 (H) 98 - 112 meq/L CO2 20 (L) 22 - 29 meq/L Calcium 8.4 8.4 - 10.2 mg/dL Glucose 166 (H) 82 - 115 mg/dL BUN 72.9 (H) 9.8 - 20.1 mg/dL Creatinine 3.13 (H) 0.57 - 1.11 mg/dL BUN/Creatinine 23 (H) 8 - 20 eGFR (mL/min/1.73m2) 16 (L) >=60 mL/min/1.73m2 Albumin 4.1 3.5 - 5.0 g/dL Alkaline Phosphatase 48 40 - 150 U/L ALT 9 <=34 U/L AST 24 11 - 34 U/L Total Bilirubin 0.9 0.2 - 1.2 mg/dL Protein, Total 6.4 6.4 - 8.3 g/dL Globulin 2.3 (L) 2.5 - 4.1 g/dL Anion Gap 12 4 - 12 A/G Ratio 1.8 0.7 - 1.9 Osmolality Calc 315.8 mOsm/kg Ammonia Status: Normal Collection Time: 12/07/24 3:59 AM Result Value Ref Range Ammonia 44 18 - 72 ??mol/L Glucose, Nova Meter Status: Abnormal Collection Time: 12/07/24 5:51 AM Result Value Ref Range POC-GLUCOSE 159 (H) 70 - 110 mg/dL Laboratory Scientist [id number] XR chest AP portable Narrative: PORTABLE CHEST; HISTORY: Respiratory failure. COMPARISON: December 04, 2024. FINDINGS: The heart is normal in size. The mediastinum is unremarkable there is pulmonary edema. There is no pneumothorax. The osseous structures or anterior cervical fusion in the lower cervical spine. Impression: Pulmonary edema. Images reviewed, interpreted, and dictated by Dr. Mike Pichardo. Transcribed by Sandra Ramsey PA-C. Recent Labs Lab(s) Units 12/07/24 0551 12/07/24 0359 12/06/24 1926 12/06/24 1606 12/06/24 0526 12/06/24 0313 12/05/24 1701 12/05/24 1536 12/05/24 0810 12/05/24 0800 12/05/24 0320 12/04/24 1627 12/04/24 1053 12/04/24 1052 12/04/24 0815 12/04/24 0335 12/04/24 0334 NA meq/L -- 146* -- -- -- 146* -- -- -- -- 146* -- 146* -- -- -- 143 K meq/L -- 3.8 -- -- -- 3.9 -- -- -- -- 3.6 -- 3.6 -- -- -- 3.7 CL meq/L -- 118* -- -- -- 116* -- -- -- -- 117* -- 116* -- -- -- 115* CO2 meq/L -- 20* -- -- -- 20* -- -- -- -- 20* -- 20* -- -- -- 20* BUN mg/dL -- 72.9* -- -- -- 63.3* -- -- -- -- 59.4* -- 61.1* -- -- -- 58.6* CREATININE mg/dL -- 3.13* -- -- -- 3.37* -- -- -- -- 3.14* -- 3.38* -- -- -- 3.43* ALBUMIN g/dL -- 4.1 -- -- -- 4.6 -- -- -- -- 4.3 -- -- -- -- -- 4.2 GLUCOSE mg/dL 159* 166* 170* 134* < > 149* < > -- < > -- 148* < > 137* <> -- < > 203* CALCIUM mg/dL -- 8.4 -- -- -- 8.6 -- -- -- -- 8.3* -- 8.5 -- -- -- 8.3* WBC K/ L -- 3.5* -- -- -- 7.0 -- -- -- -- 4.2 -- -- -- 4.1 < > -- PLT K/CU MM -- 54* -- -- -- 80* -- -- -- -- 60* -- -- -- 65* < > -- HGB GM/DL -- 7.9* -- -- -- 8.7* -- 8.1* -- 8.2* 8.2* < > -- -- 8.8* 9.0* < > -- < > = values in this interval not displayed. No intake or output data in the 24 hours ending 12/07/24 0922 Assessment 1- Anasarca - liver disease and low albumin level plus NSAID for one month 2- GERMÁN on CKD - Unknown baseline - on Lisinopril at home. Third spacing and recently increased doseof diuretics. Pre-renal azotemia - On lisinopril and NSAID and recently increased dose of diureticswith low albumin level vs HRS- Feure[place] 27% suggestive of pre-renal azotemia SFLC ratio 1.4, JEANA (-) 3- Hypoalbuminemia - UPCR 0.19 -non nephrotic range proteinuria RBC 0-2 4- Pancytopenia -Hematology following - S/p EGD 12/01/24showing duodenal ulcer and small varices. S/pbone marrow biopsy 5- hx of DM 6- HTN 7- NAFLD 8- Ascites Plan: - Continue with diuretics- Bumex 1 mg po q daily. Aldactone 12.5 mg po every other day - Monitor I/O strictly - Avoid nephrotoxic agents - no NSAID - Continue to hold Lisinopril and metformin for GERMÁN - Renal diet - Adjust meds per renal function - Gabapentin 200 mg tid adjust dose for GFR - No emergent need of PHARMACOMETRICIAN - Monitor H/H and transfuse for Hgb less than 7.0 - Serologic workup ANCA pending Discussed with patient Follow up with [facility] in 1-2 weeks with renal function panel * Ariel Mills MD - 12/07/2024 7:24 AM EDT I saw Ms. Coronel this morning. She denies any new issues or concerns. Her bone marrow result is available. Examination middle-aged female in no acute distress vitals are stable HEENT exam is unremarkable neck supple lungs are clear heart regular rhythm abdomen with some distention without organomegaly. Extremities edema Bone marrow demonstrates normal results with trilineage maturation and no evidence of myelodysplasia or leukemia or other space-occupying disease. Impression anemia of chronic disease Other low blood counts perhaps from hypersplenism due to liver disease Plan: She has someone that perhaps in a few weeks after she feels better we think about repeating her CBC and iron studies. There is no other recommendations at this time. I have answered her questions Ariel Mills MD 11/29/2024 7:25 AM * Deysi Foss MD - 12/06/2024 3:56 PM EDT EP progress note Patient Name: Mary Coronel Admission Date: 11/30/2024 Primary Care Provider: Kaitlynn Find-a-Doc Chief Complaint/Reason for Consult: No chief complaint on file. History of Present Illness: Mary Coronel is a 64 y.o. female, admitted on: 11/30/2024 1:43 AM. presented to [facility] with swollen abdomen, abdominal discomfort and bilateral lower extremity pitting edema. Patient's BUN/creatinine elevated, and patient subsequently transferred to [facility] for hepatorenal syndrome evaluation. Admits to 4 weeks of progressive SOB, FUNK, orthopnea, lower extremit y swelling, abdominal swelling, ataxia issues. States beforementioned symptoms have gotten worse over past week. Also states she has gained 16 pounds over past week. Admitts to chronic RUQ, diffuse abdominal discomfort which is worsened over past week. Reports decreased urine output x 7 days. Pt was admitted with nonalcoholic liver cirrhosis with ascites and underwent paracentesis on 11/30 with 6L removed. EGD revealed a duodenal ulcer and small varices. While on telemetry, pt is having some afib and brief runs of NSVT. Asymptomatic. BP stable. EP consulted for evaluation and management. Medications: Prior to Admission Medications: Medications Prior to Admission Medication Sig Dispense Refill Last Dose/Taking albuterol 90 mcg/actuation inhaler Inhale 1 puff by mouth every 6 (six) hours as needed for wheezing. ammonium lactate (AMLACTIN) 12 % cream Apply 1 g topically as needed for dry skin. aspirin 81 MG chewable tablet Take 1 tablet (81 mg total) by mouth daily. atorvastatin (LIPITOR) 20 MG tablet Take 1 tablet (20 mg total) by mouth nightly. bisoprolol (ZEBETA) 10 MG tablet Take 1 tablet (10 mg total) by mouth 2 (two) times daily. cholecalciferol (VITAMIN D3) 125 mcg (5,000 unit) tablet Take 2 tablets (10,000 Units total) by mouth daily. clopidogreL (PLAVIX) 75 mg tablet Take 1 tablet (75 mg total) by mouth daily Look-alike/Sound-alike medication. colestipoL (COLESTID) 1 gram tablet Take 2 tablets (2 g total) by mouth daily. dicyclomine (BENTYL) 10 MG capsule Take 1 capsule (10 mg total) by mouth 2 (two) times daily. furosemide (LASIX) 40 MG tablet Take 1 tablet (40 mg total) by mouth 2 (two) times daily. gabapentin (NEURONTIN) 800 MG tablet Take 1 tablet (800 mg total) by mouth 3 (three) times daily. Max Daily Amount: 2,400 mg HYDROcodone-acetaminophen (NORCO) 10-325 mg per tablet Take 1 tablet by mouth every 6 (six) hours as needed for pain. Max Daily Amount: 4 tablets hydrOXYzine pamoate (VISTARIL) 50 MG capsule Take 1 capsule (50 mg total) by mouth every night as needed for itching (sleep) Look-alike/Sound-alike medication. insulin aspart U-100 (NovoLOG) 100 unit/mL (3 mL) inpn Inject under the skin 4 (four) times daily before meals and nightly. [DISCONTINUED] lisinopriL (ZESTRIL) 10 MG tablet Take 1 tablet (10 mg total) by mouth 2 (two) timesdaily. [DISCONTINUED] metFORMIN (GLUCOPHAGE) 1000 MG tablet Take 1 tablet (1,000 mg total) by mouth 2 (two) times daily with breakfast and dinner Look-alike/Sound-alike medication. [DISCONTINUED] tirzepatide 7.5 mg/0.5 mL pnij Inject 7.5 mg under the skin every 7 days. [DISCONTINUED] triamcinolone (KENALOG) 0.1 % topical cream Apply 0.1 Applications topically daily to affected area.. Scheduled Medications: amiodarone 200 mg oral Daily 200 mg at 12/06/24 0857 amoxicillin-clavulanate 1 tablet oral BID 1 tablet at 12/06/24 1257 atorvastatin 20 mg oral Every Night 20 mg at 12/05/24 2151 cefTRIAXone 2 g intravenous Q24H IVPB Stopped at 12/05/24 2230 ergocalciferol 50,000 Units oral Q7 Days 50,000 Units at 11/30/24 1459 gabapentin 300 mg oral TID 300 mg at 12/06/24 0857 insulin lispro 0-18 Units subcutaneous 4x Daily AC 3 Units at 12/06/24 1238 lactulose 10 g oral BID 10 g at 12/06/24 0858 pantoprazole 40 mg oral BID rifAXIMin 550 mg oral BID 550 mg at 12/06/24 0857 Current Infusions: Current Facility-Administered Medications Medication Dose Route Frequency Provider Last Rate Last Admin acetaminophen (TYLENOL) tablet 500 mg 500 mg oral Q4H PRN Huey Hurtado MD albuterol 2.5 mg /3 mL (0.083 %) nebulizer solution 2.5 mg 2.5 mg nebulization Q6H PRN Albert Garcia MD amiodarone (PACERONE) tablet 200 mg 200 mg oral Daily Deysi Foss MD 200 mg at 12/06/24 0857 ammonium lactate (LAC-HYDRIN) lotion 12% topical PRN Huey Hurtado MD amoxicillin-clavulanate (AUGMENTIN) 500-125 mg per tablet 1 tablet 1 tablet oral BID Mary Carmen Mcfadden MD 1 tablet at 12/06/24 1257 atorvastatin (LIPITOR) tablet 20 mg 20 mg oral Every Night Huey Hurtado MD 20 mg at 12/05/24 2151 benzocaine-menthoL (CEPACOL) lozenge 1 lozenge 1 lozenge buccal Q2H PRN Timothy Bai MD cefTRIAXone (ROCEPHIN) 2 g in sodium chloride 0.9 % (NS) 50 mL MELIDA IVPB 2 g intravenous Q24H MD Barney IVPB Stopped at 12/05/24 2230 dextrose 50% (D50W) injection 25 g 25 g intravenous Q15 Min PRN Huey Hurtado MD ergocalciferol (DRISDOL) capsule 50,000 Units 50,000 Units oral Q7 Days Timothy Bai MD 50,000 Units at 11/30/24 1459 gabapentin (NEURONTIN) capsule 300 mg 300 mg oral TID Hill Boo MD 300 mg at 12/06/24 0857 glucagon injection 1 mg 1 mg intraMUSCULAR Q15 Min PRN Huey Hurtado MD glucose chew tab 16 g 16 g oral Q15 Min PRN Huey Hurtado MD hydrALAZINE (APRESOLINE) injection 10 mg 10 mg intravenous Q6H PRN Huey Hurtado MD 10 mg at 349 insulin lispro (HUMALOG, ADMELOG) injection 0-18 Units 0-18 Units subcutaneous 4x Daily AC Huey Hurtado MD 3 Units at 12/06/24 1238 lactulose (CHRONULAC) 10 gram/15 mL solution 10 g 10 g oral BID Timothy Bai MD 10 g at 12/06/24 0858 melatonin tablet 3 mg 3 mg oral Every Night PRN Huey Hurtado MD ondansetron (ZOFRAN-ODT) disintegrating tablet 4 mg 4 mg oral Q8H PRN Huey Hurtado MD Or ondansetron (ZOFRAN) injection 4 mg 4 mg intravenous Q8H PRN Huey Hurtado MD pantoprazole (PROTONIX) EC tablet 40 mg 40 mg oral BID Mary Carmen Mcfadden MD [Held by provider] phenylephrine (SILVIA-SYNEPHRINE) 40 mg in sodium chloride 0.9 % (NS) 250 mL infusion 20-260 mcg/min intravenous Titrated Timothy Bai MD Stopped at 12/04/24 1039 prochlorperazine (COMPAZINE) injection 10 mg 10 mg intravenous Q6H PRN Huey Hurtado MD rifAXIMin (XIFAXAN) tablet 550 mg 550 mg oral BID Destiney Llanes APRN 550 mg at 12/06/24 0857 sodium chloride 0.9 % infusion 20 mL/hr intravenous Once Denilson Hodgson, sodium chloride flush 10 mL 10 mL intravenous PRN Huey Hurtado MD More meds No current facility-administered medications on file prior to encounter. Current Outpatient Medications on File Prior to Encounter Medication Sig Dispense Refill albuterol 90 mcg/actuation inhaler Inhale 1 puff by mouth every 6 (six) hours as needed for wheezing. ammonium lactate (AMLACTIN) 12 % cream Apply 1 g topically as needed for dry skin. aspirin 81 MG chewable tablet Take 1 tablet (81 mg total) by mouth daily. atorvastatin (LIPITOR) 20 MG tablet Take 1 tablet (20 mg total) by mouth nightly. bisoprolol (ZEBETA) 10 MG tablet Take 1 tablet (10 mg total) by mouth 2 (two) times daily. cholecalciferol (VITAMIN D3) 125 mcg (5,000 unit) tablet Take 2 tablets (10,000 Units total) by mouth daily. clopidogreL (PLAVIX) 75 mg tablet Take 1 tablet (75 mg total) by mouth daily Look-alike/Sound-alike medication. colestipoL (COLESTID) 1 gram tablet Take 2 tablets (2 g total) by mouth daily. dicyclomine (BENTYL) 10 MG capsule Take 1 capsule (10 mg total) by mouth 2 (two) times daily. furosemide (LASIX) 40 MG tablet Take 1 tablet (40 mg total) by mouth 2 (two) times daily. gabapentin (NEURONTIN) 800 MG tablet Take 1 tablet (800 mg total) by mouth 3 (three) times daily. Max Daily Amount: 2,400 mg HYDROcodone-acetaminophen (NORCO) 10-325 mg per tablet Take 1 tablet by mouth every 6 (six) hours as needed for pain. Max Daily Amount: 4 tablets hydrOXYzine pamoate (VISTARIL) 50 MG capsule Take 1 capsule (50 mg total) by mouth every night as needed for itching (sleep) Look-alike/Sound-alike medication. insulin aspart U-100 (NovoLOG) 100 unit/mL (3 mL) inpn Inject under the skin 4 (four) times daily before meals and nightly. [DISCONTINUED] lisinopriL (ZESTRIL) 10 MG tablet Take 1 tablet (10 mg total) by mouth 2 (two) timesdaily. [DISCONTINUED] metFORMIN (GLUCOPHAGE) 1000 MG tablet Take 1 tablet (1,000 mg total) by mouth 2 (two) times daily with breakfast and dinner Look-alike/Sound-alike medication. [DISCONTINUED] tirzepatide 7.5 mg/0.5 mL pnij Inject 7.5 mg under the skin every 7 days. [DISCONTINUED] triamcinolone (KENALOG) 0.1 % topical cream Apply 0.1 Applications topically daily to affected area.. Problem list and diagnosis Patient Active Problem List Diagnosis Anasarca Melena 1. Melena Case request operating room: ESOPHAGOGASTRODUODENOSCOPY (EGD) Case request operating room: ESOPHAGOGASTRODUODENOSCOPY (EGD) Lactate dehydrogenase (LDH), body fluid Lactate dehydrogenase (LDH), body fluid Body fluid cell count with differential Body fluid cell count with differential Body Fluid Culture + Gram Stain Body Fluid Culture + Gram Stain Anaerobic Culture Anaerobic Culture Fungus Culture W/ROSA MARIA Or Nimisha Ink Fungus Culture W/ROSA MARIA Or Nimisha Ink AFB Culture And Stain AFB Culture And Stain [facility] Non-Optometric Assistant Cytology [facility] Non-Optometric Assistant Cytology DIFFERENTIAL, BODY FLUID DIFFERENTIAL, BODY FLUID Body Fluid/CSF - Path Review () Body Fluid/CSF - Path Review () [facility] BONE MARROW SMEAR, ASPIRATION, AND STAIN [facility] BONE MARROW SMEAR, ASPIRATION, AND STAIN CANCELED: Glucose Body Fluid(SENDOUT) CANCELED: Glucose Body Fluid(SENDOUT) CANCELED: Total Protein, Body Fluid(SENDOUT) CANCELED: Total Protein, Body Fluid(SENDOUT) Past Medical History: Past Medical History: Diagnosis Date Cirrhosis, non-alcoholic (HCC) Diabetes mellitus (HCC) Hypertension Past Surgical History: Past Surgical History: Procedure Laterality Date ESOPHAGOGASTRODUODENOSCOPY (EGD),REMOVAL FOREIGN BODY N/A 12/01/2024 Procedure: EGD, WITH FOREIGN BODY REMOVAL; Surgeon: Scott Daley MD; [facility]; Service: Gastroenterology; Laterality: N/A; Allergies: No Known Allergies Social History: Tobacco Use Smoking status: Never Passive exposure: Never Smokeless tobacco: Never Substance Use Topics Alcohol use: Never Drug use: Never Marital Status: Family History: No family history on file. Review of Systems: Constitutional: Negative except as documented in history of present illness. Eye: Negative except as documented in history of present illness. Ear/Nose/Mouth/Throat: Negative except as documented in history of present illness. Respiratory: Negative except as documented in history of present illness. Cardiovascular: Negative except as documented in history of present illness. Gastrointestinal: Negative except as documented in history of present illness. Genitourinary: Negative except as documented in history of present illness. Hematology/Lymphatics: Negative except as documented in history of present illness. Endocrine: Negative except as documented in history of present illness. Immunologic: Negative except as documented in history of present illness. Musculoskeletal: Negative except as documented in history of present illness. Integumentary: Negative except as documented in history of present illness. Neurologic: Negative except as documented in history of present illness. Psychiatric: Negative except as documented in history of present illness. Physical Exam: Blood pressure 118/58, pulse 66, temperature 97.9 ??F (36.6 ??C), temperature source Oral, resp. rate 18, height 1.676 m (5' 6 ), weight 99.3 kg (219 lb), SpO2 97%. General: Alert and oriented. Ill-appearing Eye: Pupils are equal, round and reactive to light. HENT: Normocephalic. Neck: Supple, Non-tender, No carotid bruit, No jugular venous distention. Respiratory: Decreased breath sound bilateral, Respirations are non-labored. Cardiovascular: regular rhythm, No murmur Gastrointestinal: Soft, Non-tender, slightly distended, Normal bowel sounds. Musculoskeletal: Normal range of motion. Integumentary: Warm, Dry, [place]. Neurologic: No obvious focal deficit Psychiatric: Cooperative, Appropriate mood & affect. Labs, Imaging, and Other Studies: Echo Results (last 7 days) Procedure Component Value Units Date/Time ECHO COMPLETE (DOPPLER / COLOR) W OR WO CONTRAST [[id number]] Collected: 11/30/24724 Order Status: Completed Updated: 11/30/24 104 Narrative: TRANSTHORACIC ECHOCARDIOGRAPHY REPORT Demographics Patient Name: RIN JONES : 1960 Age: 64 year(s) Corporate ID Number: [id number] Gender Female Container Repairer: Giovanna Rock Height: 67 inches [facility] Referring Physician: HUEY HURTADO Weight: 225 pounds Interpreting JESSICA RAYMOND MD BMI: 35.24 kg/m^2 Physician: Date of Service: 11/30/2024 Blood Pressure: 118/59 mmHg Room Number: 579 Type of Study: TTE procedure: ECHO COMPLETE (DOPPLER / COLOR) W OR WO CONTRAST. Patient Status: Routine IP Study Location: PortableTechnical Quality: Adequate visualization History/Tech Notes: Indication: shortness of breath R06.02 Impression: ######################################## Normal sized left ventricle. Normal left ventricular wall thickness. Visually estimated ejection fraction 55% +/- 5%. Borderline systolic strain pattern. Increased left atrial pressure (Grade II diastolic dysfunction). Sclerotic aortic valve leaflets. Trivial pericardial effusion measuring 0.3cm. posteriorly. ######################################## Measurements Summary: LVEDd: 5.33 cm LVESd: 3.64 cm IVSEd: 0.88 cm AO Root:2.7 cm LVPWd: 0.87 cm Contractility Score Normal Left Ventricular contractility was noted. LV regional wall motion: (0-Not visualized 1-Normal 2-Hypokinesis 3-Akinesis 4-Dyskinesis 5-Aneurysm) Left Ventricle Peak E-wave: 1.31 Peak A-wave: 1.35 m/s E/A ratio: 0.97 m/s Volume [id number] LV length: 8.51 cm ml Volume fvlyepme54.96 ml LVOT diameter: 1.79 cm Normal sized left ventricle. Normal left ventricular wall thickness. Visually estimated ejection fraction 55% +/- 5%. Borderline systolic strain pattern. Increased left atrial pressure (Grade II diastolic dysfunction). No left ventricular masses or thrombi. Right Ventricle Diastolic dimension: 3.92 RV systolic pressure: 28.12 mmHg cm Normal sized right ventricle. Normal TAPSE c/w normal right ventricular function Left Atrium LA dimension: 4 cm LA volume:83.13 ml LA/Aorta: 1.48 Abnormal left atrial volume index 39 ml/m^2. Intact atrial septum. No atrial mass or thrombus. Right Atrium Normal sized right atrium. Intact atrial septum. No atrial mass or thrombus. Mitral Valve Deceleration time: 261.56 msec Thickened mitral valve leaflets. Mild (1+) mitral regurgitation. No mitral stenosis. No masses or vegetations seen. Aortic Valve AV VTI: 53.02 Area continuity: 1.13 Peak velocity: 2.38 m/s cm cm^2 Peak gradient: 22.63 LVOT VTI: 23.85 Mean velocity: 1.76 mmHg cm m/s Mean gradient: 13.56 mmHg Sclerotic aortic valve leaflets. Mildly thickend free edges of the aortic valve leaflets. No aortic regurgitation. No aortic stenosis. No masses or vegetations seen. Tricuspid Valve TR velocity: 2.51 m/s TR gradient: 25.61047 mmHg Estimated RAP: 3 mmHg RVSP: 28.12 mmHg Structurally normal tricuspid valve. Trace tricuspid valve regurgitation. No tricuspid stenosis. No masses or vegetations seen. Pulmonic Valve Acceleration time: 110.37 msec PASP: 28.12 mmHg Structurally normal pulmonic valve. Trace pulmonary valve regurgitation. No pulmonic stenosis. No masses or vegetations seen. Great Vessels Aorta Aortic Root: 2.7 cm LVOT Diameter: 1.79 cm Visualized thoracic aorta is normal. Normal aortic root. No evidence of dissection. Normal IVC with appropriate collapse. Pericardium / Pleura Trivial pericardial effusion measuring 0.3cm. posteriorly. Other Ascites noted in subcostal imaging. Sodium Date Value Ref Range Status 12/06/2024 146 (H) 136 - 145 meq/L Final Potassium Date Value Ref Range Status 12/06/2024 3.9 3.4 - 5.1 meq/L Final Chloride Date Value Ref Range Status 12/06/2024 116 (H) 98 - 112 meq/L Final CO2 Date Value Ref Range Status 12/06/2024 20 (L) 22 - 29 meq/L Final BUN Date Value Ref Range Status 12/06/2024 63.3 (H) 9.8 - 20.1 mg/dL Final Creatinine Date Value Ref Range Status 12/06/2024 3.37 (H) 0.57 - 1.11 mg/dL Final eGFR (mL/min/1.73m2) Date Value Ref Range Status 12/06/2024 15 (L) >=60 mL/min/1.73m2 Final Calcium Date Value Ref Range Status 12/06/2024 8.6 8.4 - 10.2 mg/dL Final WBC Date Value Ref Range Status 12/06/2024 7.0 4.0 - 10.0 K/??L Final 12/05/2024 4.2 4.0 - 10.0 K/??L Final 12/04/2024 4.1 4.0 - 10.0 K/??L Final RBC Date Value Ref Range Status 12/06/2024 2.83 (L) 3.93 - 5.22 M/??L Final 12/05/2024 2.64 (L) 3.93 - 5.22 M/??L Final 12/04/2024 2.90 (L) 3.93 - 5.22 M/??L Final Hemoglobin Date Value Ref Range Status 12/06/2024 8.7 (L) 11.2 - 15.7 GM/DL Final 12/05/2024 8.1 (L) 11.2 - 15.7 GM/DL Final 12/05/2024 8.2 (L) 11.2 - 15.7 GM/DL Final Hematocrit Date Value Ref Range Status 12/06/2024 28.2 (L) 34.1 - 44.9 % Final 12/05/2024 25.9 (L) 34.1 - 44.9 % Final 12/04/2024 29.0 (L) 34.1 - 44.9 % Final Platelets Date Value Ref Range Status 12/06/2024 80 (L) 140 - 375 K/CU MM Final 12/05/2024 60 (L) 140 - 375 K/CU MM Final 12/04/2024 65 (L) 140 - 375 K/CU MM Final No results found for: TSH , MAGNESIUM .[facility] Lab Results Component Value Date K 3.9 12/06/2024 Lab Results Component Value Date CREATININE 3.37 (H) 12/06/2024 No results found for: TSH No results found for: MAGNESIUM AST Date Value Ref Range Status 12/06/2024 21 11 - 34 U/L Final Comment: AST2 reagent used for testing does not contain P5P supplementation and therefore may miss AST elevations in patients with B6 deficiency. This population may be as high as 10% in the [place], with risk factors including malabsorption, drug interactions, and alcoholic hepatitis. ALT Date Value Ref Range Status 12/06/2024 11 <=34 U/L Final Comment: ALT2 reagent used for testing does not contain P5P supplementation and therefore may miss ALT elevations in patients with B6 deficiency. This population may be as high as 10% in the [place], with risk factors including malabsorption, drug interactions, and alcoholic hepatitis. Echo Results (last 7 days) Procedure Component Value Units Date/Time ECHO COMPLETE (DOPPLER / COLOR) W OR WO CONTRAST [[id number]] Collected: 11/30/2425 Order Status: Completed Updated: 11/30/24 1046 Narrative: TRANSTHORACIC ECHOCARDIOGRAPHY REPORT Demographics Patient Name: IRN JONES : 1960 Age: 64 year(s) Corporate ID Number: [id number] Gender Female Container Repairer: Giovanna Rock Height: 67 inches [facility] Referring Physician: HUEY HURTADO Weight: 225 pounds Interpreting JESSICA RAYMOND MD BMI: 35.24 kg/m^2 Physician: Date of Service: 11/30/2024 Blood Pressure: 118/59 mmHg Room Number: 579 Type of Study: TTE procedure: ECHO COMPLETE (DOPPLER / COLOR) W OR WO CONTRAST. Patient Status: Routine IP Study Location: PortableTechnical Quality: Adequate visualization History/Tech Notes: Indication: shortness of breath R06.02 Impression: ######################################## Normal sized left ventricle. Normal left ventricular wall thickness. Visually estimated ejection fraction 55% +/- 5%. Borderline systolic strain pattern. Increased left atrial pressure (Grade II diastolic dysfunction). Sclerotic aortic valve leaflets. Trivial pericardial effusion measuring 0.3cm. posteriorly. ######################################## Measurements Summary: LVEDd: 5.33 cm LVESd: 3.64 cm IVSEd: 0.88 cm AO Root:2.7 cm LVPWd: 0.87 cm Contractility Score Normal Left Ventricular contractility was noted. LV regional wall motion: (0-Not visualized 1-Normal 2-Hypokinesis 3-Akinesis 4-Dyskinesis 5-Aneurysm) Left Ventricle Peak E-wave: 1.31 Peak A-wave: 1.35 m/s E/A ratio: 0.97 m/s Volume [id number] LV length: 8.51 cm ml Volume [id number] ml LVOT diameter: 1.79 cm Normal sized left ventricle. Normal left ventricular wall thickness. Visually estimated ejection fraction 55% +/- 5%. Borderline systolic strain pattern. Increased left atrial pressure (Grade II diastolic dysfunction). No left ventricular masses or thrombi. Right Ventricle Diastolic dimension: 3.92 RV systolic pressure: 28.12 mmHg cm Normal sized right ventricle. Normal TAPSE c/w normal right ventricular function Left Atrium LA dimension: 4 cm LA volume:83.13 ml LA/Aorta: 1.48 Abnormal left atrial volume index 39 ml/m^2. Intact atrial septum. No atrial mass or thrombus. Right Atrium Normal sized right atrium. Intact atrial septum. No atrial mass or thrombus. Mitral Valve Deceleration time: 261.56 msec Thickened mitral valve leaflets. Mild (1+) mitral regurgitation. No mitral stenosis. No masses or vegetations seen. Aortic Valve AV VTI: 53.02 Area continuity: 1.13 Peak velocity: 2.38 m/s cm cm^2 Peak gradient: 22.63 LVOT VTI: 23.85 Mean velocity: 1.76 mmHg cm m/s Mean gradient: 13.56 mmHg Sclerotic aortic valve leaflets. Mildly thickend free edges of the aortic valve leaflets. No aortic regurgitation. No aortic stenosis. No masses or vegetations seen. Tricuspid Valve TR velocity: 2.51 m/s TR gradient: 25.36008 mmHg Estimated RAP: 3 mmHg RVSP: 28.12 mmHg Structurally normal tricuspid valve. Trace tricuspid valve regurgitation. No tricuspid stenosis. No masses or vegetations seen. Pulmonic Valve Acceleration time: 110.37 msec PASP: 28.12 mmHg Structurally normal pulmonic valve. Trace pulmonary valve regurgitation. No pulmonic stenosis. No masses or vegetations seen. Great Vessels Aorta Aortic Root: 2.7 cm LVOT Diameter: 1.79 cm Visualized thoracic aorta is normal. Normal aortic root. No evidence of dissection. Normal IVC with appropriate collapse. Pericardium / Pleura Trivial pericardial effusion measuring 0.3cm. posteriorly. Other Ascites noted in subcostal imaging. Assessment and Plan: *Paroxysmal Atrial Fib [id number] of 2 also have some wide-complex tachycardia aberrancy versus nonsustained VT longest about 10 beats echocardiogram showed normal EF in November 2024 patient seems asymptomatic *Non-alcoholic Liver Cirrhosis decompensated with ascites status post paracentesis 6 L removed on 11/30/2024 also underwent an EGD that shows duodenal ulcer but no evidence of active bleeding *CAD *Diabetes mellitus *HTN *HLD *pancytopenia *GERMÁN current GFR 15. Plan: 12/06/2024 Labs and telemetry reviewed. No arrhythmia overnight. Continue amiodarone loading. 12/05/2024 Labs and telemetry reviewed. Patient remains in sinus rhythm. Stop IV amiodarone. Transfer on the floor. Continue p.o. amiodarone 12/04/2024 Labs and telemetry reviewed. Patient had no arrhythmia overnight. Antiarrhythmic logan we are limited with kidney failure. Will do low-dose of amiodarone for now g even though she has some liver failure. Will use low-dose and monitor liver enzymes. 12/03/2024 Labs and telemetry reviewed. Keep electrolytes within normal limit. Patient received a bolus of amiodarone that converted her. If further arrhythmia can always do bolus drip of amiodarone however concern is due to liver function. Further recommendations pending testing results, clinical course, and response to therapy. * Alvina Barragan, PT - 12/06/2024 3:45 PM EDT Images from the original note were not included. Inpatient Physical Therapy Attempt to Treat Patient Name: Mary Coronel Birthday: 1960 Date of Attempt: 12/06/2024 Pt asleep sitting in bedside chair. Once awake, pt reports she feels too drowsy for PT and politelyasked if we would please check back tomorrow morning. Will continue to follow. Electronically signed by Alvina Barragan PT - 12/06/2024 - 4:59 PM EDT * Chaplain Sarah - 12/06/2024 2:15 PM EDT Spiritual Care Progress Note Comments: Attempted to visit patient, but she was asleep and did not wake to voice. Will attempt tovisit again. Chaplain Sarah 12/06/2024 4:16 PM * Mary Carmen Mcfadden MD - 12/06/2024 2:05 PM EDT Subjective Patient shortness of breath generalized weakness No nausea or vomiting No fever Last Recorded Vitals Blood pressure 118/58, pulse 66, temperature 97.9 ??F (36.6 ??C), temperature source Oral, resp. rate 18, height 1.676 m (5' 6 ), weight 99.3 kg (219 lb), SpO2 97%. Physical Exam Head atraumatic normocephalic Pupils round and reactive Eyes no conjunctival injection or discharge Ears no discharge Nose no bleeding or discharge Mouth dry Neck supple full range of motion Chest Diminished in the bilateral breath expiratory wheezes Heart S1 and S2 healed regular rate Abdomen soft audible bowel sounds no tenderness Extremities no edema erythema or tenderness Neurological patient alert awake move extremities Psychiatric anxiety Skin no apparent rashes Endocrine no thyromegaly tenderness General Patient in bed mild distress Labs: Results for orders placed or performed during the hospital encounter of 11/30/24 (from the past 24 hours) Hemoglobin Status: Abnormal Collection Time: 12/05/24 3:36 PM Result Value Ref Range Hemoglobin 8.1 (L) 11.2 - 15.7 GM/DL Glucose, Nova Meter Status: Abnormal Collection Time: 12/05/24 5:01 PM Result Value Ref Range POC-GLUCOSE 140 (H) 70 - 110 mg/dL Laboratory Scientist [id number] Glucose, Nova Meter Status: Abnormal Collection Time: 12/05/24 7:21 PM Result Value Ref Range POC-GLUCOSE 145 (H) 70 - 110 mg/dL Laboratory Scientist [id number] CBC - Hemogram (-BKR) Status: Abnormal Collection Time: 12/06/24 3:13 AM Result Value Ref Range WBC 7.0 4.0 - 10.0 K/??L RBC 2.83 (L) 3.93 - 5.22 M/??L Hemoglobin 8.7 (L) 11.2 - 15.7 GM/DL Hematocrit 28.2 (L) 34.1 - 44.9 % MCV 100 (H) 79 - 95 fL MCH 30.7 25.6 - 32.2 pg MCHC 30.9 (L) 32.2 - 35.5 GM/DL RDW 17.2 (H) 11.7 - 14.4 % Platelets 80 (L) 140 - 375 K/CU MM MPV 11.7 9.4 - 12.3 fL Magnesium Status: Normal Collection Time: 12/06/24 3:13 AM Result Value Ref Range Magnesium 2.4 1.6 - 2.6 mg/dL Comprehensive Metabolic Panel Status: Abnormal Collection Time: 12/06/24 3:13 AM Result Value Ref Range Sodium 146 (H) 136 - 145 meq/L Potassium 3.9 3.4 - 5.1 meq/L Chloride 116 (H) 98 - 112 meq/L CO2 20 (L) 22 - 29 meq/L Calcium 8.6 8.4 - 10.2 mg/dL Glucose 149 (H) 82 - 115 mg/dL BUN 63.3 (H) 9.8 - 20.1 mg/dL Creatinine 3.37 (H) 0.57 - 1.11 mg/dL BUN/Creatinine 19 8 - 20 eGFR (mL/min/1.73m2) 15 (L) >=60 mL/min/1.73m2 Albumin 4.6 3.5 - 5.0 g/dL Alkaline Phosphatase 47 40 - 150 U/L ALT 11 <=34 U/L AST 21 11 - 34 U/L Total Bilirubin 1.2 0.2 - 1.2 mg/dL Protein, Total 7.0 6.4 - 8.3 g/dL Globulin 2.4 (L) 2.5 - 4.1 g/dL Anion Gap 14 (H) 4 - 12 A/G Ratio 1.9 0.7 - 1.9 Osmolality Calc 311.4 mOsm/kg Ammonia Status: Normal Collection Time: 12/06/24 3:13 AM Result Value Ref Range Ammonia 47 18 - 72 ??mol/L Ferritin Status: Abnormal Collection Time: 12/06/24 3:13 AM Result Value Ref Range Ferritin 256.82 (H) 4.63 - 204.00 ng/mL Glucose, Nova Meter Status: Abnormal Collection Time: 12/06/24 5:26 AM Result Value Ref Range POC-GLUCOSE 143 (H) 70 - 110 mg/dL Laboratory Scientist [id number] Glucose, Nova Meter Status: Abnormal Collection Time: 12/06/24 10:36 AM Result Value Ref Range POC-GLUCOSE 150 (H) 70 - 110 mg/dL Laboratory Scientist [id number] ECG 12 lead Status: None (In process) Collection Time: 12/06/24 1:16 PM Result Value Ref Range VENTRICULAR RATE EKG/MIN 90 BPM ATRIAL RATE (MCT) 90 BPM MI Interval 142 ms QRS-INTERVAL (MSEC) 92 ms QT Interval 378 ms QTC Interval 462 ms P [place] 28 degrees R AXIS (MCT) -4 degrees T Wave [place] 21 degrees [place] Diagnosis Normal sinus rhythm Septal infarct , age undetermined Abnormal ECG When compared with ECG of 04-DEC-2024 20:08, Septal infarct is now present Nonspecific T wave abnormality no longer evident in Anterior leads XR chest AP portable Narrative: PORTABLE CHEST; HISTORY: Respiratory failure. COMPARISON: December 04, 2024. FINDINGS: The heart is normal in size. The mediastinum is unremarkable there is pulmonary edema. There is no pneumothorax. The osseous structures or anterior cervical fusion in the lower cervical spine. Impression: Pulmonary edema. Images reviewed, interpreted, and dictated by Dr. Mike Pichardo. Transcribed by Sandra Ramsey PA-C. Assessment Anasarca Paroxysmal Atrial Fib *CAD *Diabetes mellitus *HTN *HLD *pancytopenia *GERMÁN current GFR 15. Nonalcoholic liver cirrhosis with ascites Ascites Status post paracentesis Duodenal ulcer Anasarca Diabetes mellitus Acute renal failure Plan PT OT Monitor kidney function No emergent dialysis education general manager consulted Discharge Planning: Patient can be discharged to rehab in day or 2 Pending renal improvement * Hill Boo MD - 12/06/2024 9:10 AM EDT Subjective No acute events overnight. No new complain Review of Systems No CP, SOA, N/V, fever, chills or rash Objective Last Recorded Vitals Blood pressure 118/58, pulse 66, temperature 97.9 ??F (36.6 ??C), temperature source Oral, resp. rate 18, height 1.676 m (5' 6 ), weight 99.3 kg (219 lb), SpO2 97%. Physical Exam Gen: Alert, NAD HEENT: NC, AT Neck: Supple, no JVD Lungs: CTA. Non labored, symetrical chest expansion CVS: SI/S2 audible. RRR, No M/G noted Abd: soft, NT, ND, BS + Ext: +++ Pedal edema , no cyanosis WALLPAPERER HELPER: Alert, No focal deficit noted grossly Psy: Cooperative Labs: Results for orders placed or performed during the hospital encounter of 11/30/24 (from the past 24 hours) Glucose, Nova Meter Status: Abnormal Collection Time: 12/05/24 10:23 AM Result Value Ref Range POC-GLUCOSE 141 (H) 70 - 110 mg/dL Laboratory Scientist [id number] Hemoglobin Status: Abnormal Collection Time: 12/05/24 3:36 PM Result Value Ref Range Hemoglobin 8.1 (L) 11.2 - 15.7 GM/DL Glucose, Nova Meter Status: Abnormal Collection Time: 12/05/24 5:01 PM Result Value Ref Range POC-GLUCOSE 140 (H) 70 - 110 mg/dL Laboratory Scientist [id number] Glucose, Nova Meter Status: Abnormal Collection Time: 12/05/24 7:21 PM Result Value Ref Range POC-GLUCOSE 145 (H) 70 - 110 mg/dL Laboratory Scientist [id number] CBC - Hemogram (SJ-BKR) Status: Abnormal Collection Time: 12/06/24 3:13 AM Result Value Ref Range WBC 7.0 4.0 - 10.0 K/??L RBC 2.83 (L) 3.93 - 5.22 M/??L Hemoglobin 8.7 (L) 11.2 - 15.7 GM/DL Hematocrit 28.2 (L) 34.1 - 44.9 % MCV 100 (H) 79 - 95 fL MCH 30.7 25.6 - 32.2 pg MCHC 30.9 (L) 32.2 - 35.5 GM/DL RDW 17.2 (H) 11.7 - 14.4 % Platelets 80 (L) 140 - 375 K/CU MM MPV 11.7 9.4 - 12.3 fL Magnesium Status: Normal Collection Time: 12/06/24 3:13 AM Result Value Ref Range Magnesium 2.4 1.6 - 2.6 mg/dL Comprehensive Metabolic Panel Status: Abnormal Collection Time: 12/06/24 3:13 AM Result Value Ref Range Sodium 146 (H) 136 - 145 meq/L Potassium 3.9 3.4 - 5.1 meq/L Chloride 116 (H) 98 - 112 meq/L CO2 20 (L) 22 - 29 meq/L Calcium 8.6 8.4 - 10.2 mg/dL Glucose 149 (H) 82 - 115 mg/dL BUN 63.3 (H) 9.8 - 20.1 mg/dL Creatinine 3.37 (H) 0.57 - 1.11 mg/dL BUN/Creatinine 19 8 - 20 eGFR (mL/min/1.73m2) 15 (L) >=60 mL/min/1.73m2 Albumin 4.6 3.5 - 5.0 g/dL Alkaline Phosphatase 47 40 - 150 U/L ALT 11 <=34 U/L AST 21 11 - 34 U/L Total Bilirubin 1.2 0.2 - 1.2 mg/dL Protein, Total 7.0 6.4 - 8.3 g/dL Globulin 2.4 (L) 2.5 - 4.1 g/dL Anion Gap 14 (H) 4 - 12 A/G Ratio 1.9 0.7 - 1.9 Osmolality Calc 311.4 mOsm/kg Ammonia Status: Normal Collection Time: 12/06/24 3:13 AM Result Value Ref Range Ammonia 47 18 - 72 ??mol/L Ferritin Status: Abnormal Collection Time: 12/06/24 3:13 AM Result Value Ref Range Ferritin 256.82 (H) 4.63 - 204.00 ng/mL Glucose, Nova Meter Status: Abnormal Collection Time: 12/06/24 5:26 AM Result Value Ref Range POC-GLUCOSE 143 (H) 70 - 110 mg/dL Laboratory Scientist [id number] XR chest AP portable Narrative: PORTABLE CHEST HISTORY: Acute shortness of breath. COMPARISON: One day prior. FINDINGS: The heart is mildly enlarged in size, stable. The mediastinum is unremarkable. There has been mild interval worsening of the vascular engorgement and pulmonary edema. There is no pneumothorax. Impression: Mild interval worsening of vascular engorgement and pulmonary edema. Images reviewed, interpreted, and dictated by Dr. Haseeb Gil. Transcribed by Regina Villasenor PA-C. Recent Labs Lab(s) Units 12/06/24 0526 12/06/24 0313 12/05/24 1921 12/05/24 1701 12/05/24 1536 12/05/24 0810 12/05/24 0800 12/05/24 0320 12/04/24 1627 12/04/24 1053 12/04/24 1052 12/04/24 0815 12/04/24 0613 12/04/24 0335 12/04/24 0334 12/03/24 0831 12/03/24 0739 NA meq/L -- 146* -- -- -- -- -- 146* -- 146* -- -- -- -- 143 -- 147* K meq/L -- 3.9 -- -- -- -- -- 3.6 -- 3.6 -- -- -- -- 3.7 -- 4.1 CL meq/L -- 116* -- -- -- -- -- 117* -- 116* -- -- -- -- 115* -- 119* CO2 meq/L -- 20* -- -- -- -- -- 20* -- 20* -- -- -- -- 20* -- 20* BUN mg/dL -- 63.3* -- -- -- -- -- 59.4* -- 61.1* -- -- -- -- 58.6* -- 53.7* CREATININE mg/dL -- 3.37* -- -- -- -- -- 3.14* -- 3.38* -- -- -- -- 3.43* -- 3.48* ALBUMIN g/dL -- 4.6 -- -- -- -- -- 4.3 -- -- -- -- -- -- 4.2 -- 4.4 GLUCOSE mg/dL 143* 149* 145* 140* -- < > -- 148* < > 137* < > -- < > -- 203* < > 145* CALCIUM mg/dL -- 8.6 -- -- -- -- -- 8.3* -- 8.5 -- -- -- -- 8.3* -- 8.3* WBC K/ L -- 7.0 -- -- -- -- -- 4.2 -- -- -- 4.1 -- 3.2* -- < > -- PLT K/CU MM -- 80* -- -- -- -- -- 60* -- -- -- 65* -- 61* -- < > -- HGB GM/DL -- 8.7* -- -- 8.1* -- 8.2* 8.2* < > -- -- 8.8* 9.0* -- 8.9* -- < > -- < > = values in this interval not displayed. Intake/Output Summary (Last 24 hours) at 12/06/2024 0910 Last data filed at 12/06/2024 0600 Gross per 24 hour Intake -- Output 500 ml Net -500 ml Assessment 1- Anasarca - liver disease and low albumin level plus NSAID for one month 2- GERMÁN on CKD - Unknown baseline - on Lisinopril at home. Third spacing and recently increased doseof diuretics. Pre-renal azotemia - On lisinopril and NSAID and recently increased dose of diureticswith low albumin level vs HRS- Feure[place] 27% suggestive of pre-renal azotemia SFLC ratio 1.4 3- Hypoalbuminemia - UPCR 0.19 -non nephrotic range proteinuria RBC 0-2 4- Pancytopenia -Hematology following - S/p EGD 12/01/24showing duodenal ulcer and small varices. S/pbone marrow biopsy 5- hx of DM 6- HTN 7- NAFLD 8- Ascites Plan: - Continue with diuretics - Monitor I/O strictly - Avoid nephrotoxic agents - no NSAID - Continue to hold Lisinopril and metformin for GERMÁN - Renal diet - Adjust meds per renal function - Gabapentin 200 mg tid adjust dose for GFR - No emergent need of PHARMACOMETRICIAN - Monitor H/H and transfuse for Hgb less than 7.0 - Serologic workup pending Discussed with patient * Blanka Malagon MD - 12/06/2024 8:20 AM EDT Images from the original note were not included. PULMONARY AND CRITICAL CARE Consult Note Date of Service: 12/06/2024 HPI: This is a 64 y.o. year old female with past medical history as below. She initially presented to [facility] with swollen abdomen, abdominal discomfort, and bilateral lower extremity pain. Her creatinine was elevated and as a result, she was transferred to [facility] for he patorenal syndrome. Upon arrival here, she endorsed a 4-week history of shortness of breath, orthopnea, and ataxia along with the abdominal and lower extremity edema. She also endorsed recent black, tarry stools as well. Upon arrival here, labs of significance included WBC 1.9, platelets 64, creatinine 4.15, and CK 356. She underwent a paracentesis on 11/30 with 6 liters removed. EGD on 12/01 revealed a duodenal ulcer, but no evidence of active bleeding. She underwent a bone marrow biopsy on 12/02 and pathology result is still pending. On 12/03, she began having atrial fib with some runs of non-sustained v. tach. She is currently beingtransferred to the unit and Pulmonary has been consulted for critical care management. 12/04 I have seen and examined the patient this morning, her sister at bedside, have discussed with the patient and his sister about the patient condition answered all the questions and concerns, theyexpressed transcending, discussed with nephrology about the patient condition and plan, chest x-shawna 12/04 interpreted independently showed low lung volume bilaterally with worsening pulmonary edemaand vascular congestion, on nasal cannula 3 L oxygen saturation 95%, respiratory 27, pressure 140/65, pulse 86, temperature 98.2, ABG 7.29/43/100/6 with bicarb of 21, hemoglobin 9, platelets 65, WBC 4.1, sodium 146, creatinine 3.38, fluid balance +300 mL, on ceftriaxone. 12/06: Seen and examined, 64 years old female, laying in bed, 2 L nasal cannula, never smoker, denies any home oxygen at home, has been complaining of edema in the lower extremities/abdominal girth/ascites PAST MEDICAL HISTORY: Past Medical History: Diagnosis Date Cirrhosis, non-alcoholic (HCC) Diabetes mellitus (HCC) Hypertension PAST SURGICAL HISTORY: Past Surgical History: Procedure Laterality Date ESOPHAGOGASTRODUODENOSCOPY (EGD),REMOVAL FOREIGN BODY N/A 12/01/2024 Procedure: EGD, WITH FOREIGN BODY REMOVAL; Surgeon: Scott Daley MD; [facility]; Service: Gastroenterology; Laterality: N/A; Allergies: No Known Allergies SOCIAL HISTORY: Social History Tobacco Use Smoking status: Never Passive exposure: Never Smokeless tobacco: Never Substance Use Topics Alcohol use: Never Drug use: Never FAMILY HISTORY: family history is not on file. Review of Systems Constitutional: Positive for malaise/fatigue. Respiratory: Positive for shortness of breath. Negative for cough and sputum production. Cardiovascular: Positive for leg swelling. Negative for chest pain. Gastrointestinal: Negative for abdominal pain, nausea and vomiting. Neurological: Positive for weakness. All other systems reviewed and are negative. Vital Signs Temp: [97.9 ??F (36.6 ??C)-99 ??F (37.2 ??C)] 97.9 ??F (36.6 ??C) Pulse: [66-100] 66 Resp: [18-40] 18 BP: (118-157)/(58-76) 118/58 Current: Temp: 97.9 ??F (36.6 ??C) Pulse: 66 Resp: 18 BP: 118/58 SpO2: 97 % 24 Hour: BP Min: 118/58 Max: 157/76 Temp Min: 97.9 ??F (36.6 ??C) Max: 99 ??F (37.2 ??C) Pulse Min: 66 Max: 100 Resp Min: 18 Max: 40 SpO2 Min: 93 % Max: 100 % Weight Min: 99.3 kg (219 lb) Max: 99.3 kg (219 lb) Intake/Output: I/O last 3 completed shifts: In: - Out: 1300 [Urine:1300] Physical Exam Constitutional: General: She is not in acute distress. Appearance: She is obese. She is ill-appearing. Comments: 3L NC HENT: Head: Normocephalic. Nose: Nose normal. Mouth/Throat: Mouth: Mucous membranes are moist. Pharynx: Oropharynx is clear. Eyes: Pupils: Pupils are equal, round, and reactive to light. Cardiovascular: Rate and Rhythm: Normal rate and regular rhythm. Pulses: Normal pulses. Heart sounds: Normal heart sounds. Pulmonary: Effort: Pulmonary effort is normal. No respiratory distress. Breath sounds: Examination of the right-lower field reveals decreased breath sounds. Examination ofthe left-lower field reveals decreased breath sounds. Decreased breath sounds present. Abdominal: General: Bowel sounds are normal. Palpations: Abdomen is soft. Musculoskeletal: Cervical back: Normal range of motion. Right lower leg: Edema present. Left lower leg: Edema present. Skin: General: Skin is warm and dry. Capillary Refill: Capillary refill takes less than 2 seconds. Neurological: Mental Status: She is alert and oriented to person, place, and time. Mental status is at baseline. Psychiatric: Mood and Affect: Mood normal. Behavior: Behavior normal. Vent / O2 Management: LABS Results for orders placed or performed during the hospital encounter of 11/30/24 (from the past 24 hours) Glucose, Nova Meter Status: Abnormal Collection Time: 12/05/24 10:23 AM Result Value Ref Range POC-GLUCOSE 141 (H) 70 - 110 mg/dL Laboratory Scientist [id number] Hemoglobin Status: Abnormal Collection Time: 12/05/24 3:36 PM Result Value Ref Range Hemoglobin 8.1 (L) 11.2 - 15.7 GM/DL Glucose, Nova Meter Status: Abnormal Collection Time: 12/05/24 5:01 PM Result Value Ref Range POC-GLUCOSE 140 (H) 70 - 110 mg/dL Laboratory Scientist [id number] Glucose, Nova Meter Status: Abnormal Collection Time: 12/05/24 7:21 PM Result Value Ref Range POC-GLUCOSE 145 (H) 70 - 110 mg/dL Laboratory Scientist [id number] CBC - Hemogram (-BKR) Status: Abnormal Collection Time: 12/06/24 3:13 AM Result Value Ref Range WBC 7.0 4.0 - 10.0 K/??L RBC 2.83 (L) 3.93 - 5.22 M/??L Hemoglobin 8.7 (L) 11.2 - 15.7 GM/DL Hematocrit 28.2 (L) 34.1 - 44.9 % MCV 100 (H) 79 - 95 fL MCH 30.7 25.6 - 32.2 pg MCHC 30.9 (L) 32.2 - 35.5 GM/DL RDW 17.2 (H) 11.7 - 14.4 % Platelets 80 (L) 140 - 375 K/CU MM MPV 11.7 9.4 - 12.3 fL Magnesium Status: Normal Collection Time: 12/06/24 3:13 AM Result Value Ref Range Magnesium 2.4 1.6 - 2.6 mg/dL Comprehensive Metabolic Panel Status: Abnormal Collection Time: 12/06/24 3:13 AM Result Value Ref Range Sodium 146 (H) 136 - 145 meq/L Potassium 3.9 3.4 - 5.1 meq/L Chloride 116 (H) 98 - 112 meq/L CO2 20 (L) 22 - 29 meq/L Calcium 8.6 8.4 - 10.2 mg/dL Glucose 149 (H) 82 - 115 mg/dL BUN 63.3 (H) 9.8 - 20.1 mg/dL Creatinine 3.37 (H) 0.57 - 1.11 mg/dL BUN/Creatinine 19 8 - 20 eGFR (mL/min/1.73m2) 15 (L) >=60 mL/min/1.73m2 Albumin 4.6 3.5 - 5.0 g/dL Alkaline Phosphatase 47 40 - 150 U/L ALT 11 <=34 U/L AST 21 11 - 34 U/L Total Bilirubin 1.2 0.2 - 1.2 mg/dL Protein, Total 7.0 6.4 - 8.3 g/dL Globulin 2.4 (L) 2.5 - 4.1 g/dL Anion Gap 14 (H) 4 - 12 A/G Ratio 1.9 0.7 - 1.9 Osmolality Calc 311.4 mOsm/kg Ammonia Status: Normal Collection Time: 12/06/24 3:13 AM Result Value Ref Range Ammonia 47 18 - 72 ??mol/L Glucose, Nova Meter Status: Abnormal Collection Time: 12/06/24 5:26 AM Result Value Ref Range POC-GLUCOSE 143 (H) 70 - 110 mg/dL Laboratory Scientist [id number] Radiology Radiology Results (last day) Procedure Component Value Units Date/Time XR chest AP portable [[id number]] Resulted: 12/06/24 0806 Order Status: Sent Updated: 12/06/24 0806 Microbiology: Microbiology Results (last 7 days) Procedure Component Value Units Date/Time Anaerobic Culture [[id number]] Collected: 11/30/24 1603 Order Status: Completed Specimen: Peritoneal Fluid from Body Fluid Updated: 12/05/24 0634 Result No Anaerobic growth Narrative: Specimen Description: peritoneal fluid Blood Culture [[id number]] Collected: 11/30/24 0340 Order Status: Completed Specimen: Blood from Arm, Left Updated: 12/05/24 0501 Result No growth in 5 days Blood Culture [[id number]] Collected: 11/30/24 0342 Order Status: Completed Specimen: Blood from Arm, Right Updated: 12/05/24 0501 Result No growth in 5 days Body Fluid Culture + Gram Stain [[id number]] Collected: 11/30/24 1603 Order Status: Completed Specimen: Peritoneal Fluid from Body Fluid Updated: 12/03/24 0907 Result No growth Gram Stain Result No organisms seen No cells seen Narrative: Specimen Description: peritoneal fluid Body Fluid/CSF - Path Review () [[id number]] Collected: 11/30/24 1603 Order Status: Completed Specimen: Peritoneal Fluid from Body Fluid Updated: 12/03/24 0654 SENT TO PATHOLOGY FOR REVIEW Yes Scan Result Mesothelial cells. MD German 12/02/2024 AFB Culture And Stain [[id number]] Collected: 11/30/24 1603 Order Status: Completed Specimen: Peritoneal Fluid from Body Fluid Updated: 12/01/24 1410 AFB Smear No acid fast bacilli seen Narrative: Specimen Description: peritoneal fluid Glucose, body fluid [[id number]] Collected: 11/30/24 1603 Order Status: Completed Specimen: Body Fluid from Peritoneal Fluid Updated: 12/01/24 0710 Glucose, Body Fluid 107 mg/dL BODY FLUID TYPE Peritoneal Narrative: This test has been modified from the golf course laborer's instructions and its performance characteristics were determined by the laboratory. The reference intervals and other method performance specifications are unavailable for this test. It is recommended to interpret body fluid concentrations in comparison with the corresponding serum or plasma concentrations and to integrate test results into the clinical context. Protein, body fluid [[id number]] Collected: 11/30/241602 Order Status: Completed Specimen: Body Fluid from Peritoneal Fluid Updated: 12/01/24 0710 Protein, Fluid 1.9 g/dL BODY FLUID TYPE Peritoneal Narrative: This test has been modified from the golf course laborer's instructions and its performance characteristics were determined by the laboratory. The reference intervals and other method performance specifications are unavailable for this test. It is recommended to interpret body fluid concentrations in comparison with the corresponding serum or plasma concentrations and to integrate test results into the clinical context. Urine Culture [[id number]] Collected: 11/30/24 1135 Order Status: Completed Specimen: Urine, Clean Catch Updated: 12/01/24648 Result Recollect Specimen - 3 or more organisms suggests contamination Body fluid cell count with differential [[id number]] (Abnormal) Collected: 11/30/241602 Order Status: Completed Specimen: Peritoneal Fluid from Body Fluid Updated: 11/30/242048 Appearance Cloudy Color Yellow BODY FLUID TYPE Peritoneal Auto WBC/Nucleated Cells BF 85 /uL Comment: Please refer to specific WBC/Nucleated Cell Count Body Fluid reference ranges below: For Pleural: 0-1000 Peritoneal: 0-1000 Pericardial:0-1000 Synovial: 0-200 Auto RBC BF <3,000 /uL Comment: Please refer to specific RBC Cell Count Body Fluid reference ranges below: Pleural: 0-10,000 Peritoneal: 0-10,000 Pericardial:0-10,000 Synovial:0-30 Narrative: There is normally no readily obtainable pleural, peritoneal and pericardial fluid, hence normal elements for these potential fluids are not defined. DIFFERENTIAL, BODY FLUID [[id number]] Collected: 11/30/241602 Order Status: Completed Specimen: Peritoneal Fluid from Body Fluid Updated: 11/30/242048 Neutrophils Fluid 5 % Lymphocytes Fluid 46 % Unidentified Mononuclear Cells BF 49 % Lactate dehydrogenase (LDH), body fluid [[id number]] Collected: 11/30/241602 Order Status: Completed Specimen: Peritoneal Fluid from Body Fluid Updated: 11/30/249 LDH, Fluid 71 U/L BODY FLUID TYPE Peritoneal Narrative: This test has been modified from the golf course laborer's instructions and its performance characteristics were determined by the laboratory. The reference intervals and other method performance specifications are unavailable for this test. It is recommended to interpret body fluid concentrations in comparison with the corresponding serum or plasma concentrations and to integrate test results into the clinical context. Fungus Culture W/ROSA MARIA Or Nimisha Ink [[id number]] Collected: 11/30/24 1603 Order Status: Completed Specimen: Peritoneal Fluid from Body Fluid Updated: 11/30/24 1754 ROSA MARIA Prep No fungal elements seen Narrative: Specimen Description: peritoneal fluid Total Protein, Body Fluid(SENDOUT) [[id number]] Collected: 11/30/24 1603 Order Status: Canceled Specimen: Peritoneal Fluid from Body Fluid Updated: 11/30/24 1634 Glucose Body Fluid(SENDOUT) [[id number]] Collected: 11/30/24 1603 Order Status: Canceled Specimen: Peritoneal Fluid from Body Fluid Updated: 11/30/24 1634 Urine Culture [[id number]] Collected: 11/30/24 1135 Order Status: Canceled Specimen: Urine, Clean Catch Updated: 11/30/24 1206 ECHO Normal sized left ventricle. Normal left ventricular wall thickness. Visually estimated ejection fraction 55% +/- 5%. Borderline systolic strain pattern. Increased left atrial pressure (Grade II diastolic dysfunction). Sclerotic aortic valve leaflets. Trivial pericardial effusion measuring 0.3cm. posteriorly ASSESSMENT: Pulmonary Acute hypoxemic respiratory failure Acute pulmonary edema and pulmonary vascular congestion Never smoker GI Decompensated cirrhosis, new diagnosis MELD-NA score = 21 Hyperammonemia - improved S/p paracentesis on 11/30 - 6L removed S/p EGD on 12/01 - duodenal ulcer, no evidence of active bleeding Cardiac Grade 2 diastolic dysfunction New-onset atrial fib with non-sustained runs of v. tach - improved, on Amio gtt Renal Acute on chronic kidney disease, baseline unknown Hypernatremia Heme Pancytopenia S/p bone marrow biopsy on 12/02 - path pending Neuro Awake, alert Endo DM PLAN: Acute hypoxic respiratory failure likely related to acute pulmonary edema which is most likely related to diastolic heart failure/ Chronic kidney disease/cirrhosis/ascites Ultrasound of the liver: November 2024 underlying cirrhosis Paracentesis 11/30/2024: 6 L removed Echo EF 25%, grade 2 diastolic dysfunction, increased left atrial pressure trivial pericardial effusion Chest x-ray. Acute pulmonary edema Picture of volume overload likely related to combination of acute diastolic heart failure/renal failure/ascites with volume overload anasarca/pericardial effusion/ascites/lower extremity edema Nephrology following, recommended to continue with albumin/diuretics no indication for PHARMACOMETRICIAN Oxygenation improved 3 L nasal cannula, leg edema improved Patient not on home oxygen never smoker Continue diuresis. Monitoring kidney function A-fib rate controlled, goal-directed therapy for diastolic heart failure No significant pleural effusion for thoracentesis If needed repeat chest x-ray. Otherwise continue diuresis Pulmonary team will sign off please call for questions Case discussed during round. I have personally evaluated the patient and performed a [id number] diagnostic evaluation on this patient; I have reviewed history, performed physical examination, reviewed laboratory studies. , andreviewed images independent of radiologist. I have actively directed the medical care, formulated assessemnt and plan of care. Patient requires a high complexity of decision making for assessment. 46 minutes pulmonary care clinical time was spent. Voice moss bleacher technology ([employer]) is used for dictation of this note and sound-alike words might be erroneously placed despite reviewing the note for accuracy.Errors in dictation may reflect use of voice recognition software and not all errors in moss bleacher may have been detectedprior to signing * Ariel Mills MD - 12/06/2024 7:50 AM EDT I saw Ms. Coronel this morning. She is in no distress. She denies other additional complaints. Examination elderly female no acute distress vital stable HEENT exam unremarkable neck supple lungsare clear anteriorly heart regular rhythm abdomen without splenomegaly other abdominal masses extremities edema Impression pancytopenia with hepatorenal disease due to underlying liver disorder Plan: We can await the bone marrow biopsy. I have answered her questions. I will see what other avenues I can pursue and trying to make her blood counts better. Ariel Mills MD 11/29/2024 7:51 AM * Gianna Senior RN - 12/05/2024 11:00 AM EDT Patient transfer from ICU, patient is alert and VSS. No complaints or signs of distress.See morningassessment. * Deysi Foss MD - 12/05/2024 10:58 AM EDT EP progress note Patient Name: Mary Coronel Admission Date: 11/30/2024 Primary Care Provider: Kaitlynn Find-a-Doc Chief Complaint/Reason for Consult: No chief complaint on file. History of Present Illness: Mary Coronel is a 64 y.o. female, admitted on: 11/30/2024 1:43 AM. presented to [facility] with swollen abdomen, abdominal discomfort and bilateral lower extremity pitting edema. Patient's BUN/creatinine elevated, and patient subsequently transferred to [facility] for hepatorenal syndrome evaluation. Admits to 4 weeks of progressive SOB, FUNK, orthopnea, lower extremit y swelling, abdominal swelling, ataxia issues. States beforementioned symptoms have gotten worse over past week. Also states she has gained 16 pounds over past week. Admitts to chronic RUQ, diffuse abdominal discomfort which is worsened over past week. Reports decreased urine output x 7 days. Pt was admitted with nonalcoholic liver cirrhosis with ascites and underwent paracentesis on 11/30 with 6L removed. EGD revealed a duodenal ulcer and small varices. While on telemetry, pt is having some afib and brief runs of NSVT. Asymptomatic. BP stable. EP consulted for evaluation and management. Medications: Prior to Admission Medications: Medications Prior to Admission Medication Sig Dispense Refill Last Dose/Taking albuterol 90 mcg/actuation inhaler Inhale 1 puff by mouth every 6 (six) hours as needed for wheezing. ammonium lactate (AMLACTIN) 12 % cream Apply 1 g topically as needed for dry skin. aspirin 81 MG chewable tablet Take 1 tablet (81 mg total) by mouth daily. atorvastatin (LIPITOR) 20 MG tablet Take 1 tablet (20 mg total) by mouth nightly. bisoprolol (ZEBETA) 10 MG tablet Take 1 tablet (10 mg total) by mouth 2 (two) times daily. cholecalciferol (VITAMIN D3) 125 mcg (5,000 unit) tablet Take 2 tablets (10,000 Units total) by mouth daily. clopidogreL (PLAVIX) 75 mg tablet Take 1 tablet (75 mg total) by mouth daily Look-alike/Sound-alike medication. colestipoL (COLESTID) 1 gram tablet Take 2 tablets (2 g total) by mouth daily. dicyclomine (BENTYL) 10 MG capsule Take 1 capsule (10 mg total) by mouth 2 (two) times daily. furosemide (LASIX) 40 MG tablet Take 1 tablet (40 mg total) by mouth 2 (two) times daily. gabapentin (NEURONTIN) 800 MG tablet Take 1 tablet (800 mg total) by mouth 3 (three) times daily. Max Daily Amount: 2,400 mg HYDROcodone-acetaminophen (NORCO) 10-325 mg per tablet Take 1 tablet by mouth every 6 (six) hours as needed for pain. Max Daily Amount: 4 tablets hydrOXYzine pamoate (VISTARIL) 50 MG capsule Take 1 capsule (50 mg total) by mouth every night as needed for itching (sleep) Look-alike/Sound-alike medication. insulin aspart U-100 (NovoLOG) 100 unit/mL (3 mL) inpn Inject under the skin 4 (four) times daily before meals and nightly. lisinopriL (ZESTRIL) 10 MG tablet Take 1 tablet (10 mg total) by mouth 2 (two) times daily. metFORMIN (GLUCOPHAGE) 1000 MG tablet Take 1 tablet (1,000 mg total) by mouth 2 (two) times daily with breakfast and dinner Look-alike/Sound-alike medication. tirzepatide 7.5 mg/0.5 mL pnij Inject 7.5 mg under the skin every 7 days. triamcinolone (KENALOG) 0.1 % topical cream Apply 0.1 Applications topically daily to affected area.. Scheduled Medications: albumin human 25% 25 g intravenous Q6H NAS 25 g at 12/05/24 0554 amiodarone (CORDARONE, NEXTERONE) 150 mg in dextrose 5 % (D5W) 100 mL (V2B) IVPB bolus 150 mg intravenous Once amiodarone 200 mg oral Daily 200 mg at 12/05/24 0813 amiodarone 150 mg intravenous Once amiodarone 150 mg intravenous Once atorvastatin 20 mg oral Every Night 20 mg at 12/04/24 2152 cefTRIAXone 2 g intravenous Q24H IVPB Stopped at 12/04/24 2221 ergocalciferol 50,000 Units oral Q7 Days 50,000 Units at 11/30/24 1459 gabapentin 300 mg oral TID 300 mg at 12/05/24 0813 insulin lispro 0-18 Units subcutaneous 4x Daily AC 3 Units at 12/05/24 1034 lactulose 10 g oral BID pantoprazole 40 mg intravenous BID 40 mg at 12/05/24 0813 rifAXIMin 550 mg oral BID 550 mg at 12/05/24 0813 Current Infusions: Current Facility-Administered Medications Medication Dose Route Frequency Provider Last Rate Last Admin acetaminophen (TYLENOL) tablet 500 mg 500 mg oral Q4H PRN Huey Hurtado MD albumin human 25 % IV 25 g 25 g intravenous Q6H [facility] Timothy Bai MD 25 g at 12/05/24 0554 albuterol 2.5 mg /3 mL (0.083 %) nebulizer solution 2.5 mg 2.5 mg nebulization Q6H PRN Albert Garcia MD amiodarone (CORDARONE, NEXTERONE) 150 mg in dextrose 5 % (D5W) 100 mL (V2B) IVPB bolus 150 mg intravenous Once Deysi Foss MD amiodarone bolus from bag 150 mg 150 mg intravenous Once Deysi Foss MD And amiodarone (NEXTERONE) 450 mg in dextrose 5 % 250 mL infusion (premix) 0.5 mg/min intravenous Continuous Deysi Foss MD Stopped at 12/05/24 0900 amiodarone (PACERONE) tablet 200 mg 200 mg oral Daily Deysi Foss MD 200 mg at 12/05/24 0813 amiodarone bolus from bag 150 mg 150 mg intravenous Once Deysi Foss MD ammonium lactate (LAC-HYDRIN) lotion 12% topical PRN Huey Hurtado MD atorvastatin (LIPITOR) tablet 20 mg 20 mg oral Every Night Huey Hurtado MD 20 mg at 12/04/242151 benzocaine-menthoL (CEPACOL) lozenge 1 lozenge 1 lozenge buccal Q2H PRN Timothy Bai MD cefTRIAXone (ROCEPHIN) 2 g in sodium chloride 0.9 % (NS) 50 mL MELIDA IVPB 2 g intravenous Q24H MD Barney IVPB Stopped at 12/04/24 2221 dextrose 50% (D50W) injection 25 g 25 g intravenous Q15 Min PRN Huey Hurtado MD ergocalciferol (DRISDOL) capsule 50,000 Units 50,000 Units oral Q7 Days Timothy Bai MD 50,000 Units at 11/30/24 1459 gabapentin (NEURONTIN) capsule 300 mg 300 mg oral TID Alejandre MD Rajeev 300 mg at 12/05/24 0813 glucagon injection 1 mg 1 mg intraMUSCULAR Q15 Min PRN Huey Hurtado MD glucose chew tab 16 g 16 g oral Q15 Min PRN Huey Hurtado MD hydrALAZINE (APRESOLINE) injection 10 mg 10 mg intravenous Q6H PRN Huey Hurtado MD 10 mg at 349 insulin lispro (HUMALOG, ADMELOG) injection 0-18 Units 0-18 Units subcutaneous 4x Daily AC Huey Hurtado MD 3 Units at 12/05/24 1034 lactulose (CHRONULAC) 10 gram/15 mL solution 10 g 10 g oral BID Timothy Bai MD melatonin tablet 3 mg 3 mg oral Every Night PRN Huey Hurtado MD ondansetron (ZOFRAN-ODT) disintegrating tablet 4 mg 4 mg oral Q8H PRN Huey Hurtado MD Or ondansetron (ZOFRAN) injection 4 mg 4 mg intravenous Q8H PRN Huey Hurtado MD pantoprazole (PROTONIX) injection 40 mg 40 mg intravenous BID Timothy Bai MD 40 mg at 12/05/24 0813 [Held by provider] phenylephrine (SILVIA-SYNEPHRINE) 40 mg in sodium chloride 0.9 % (NS) 250 mL infusion 20-260 mcg/min intravenous Titrated Timothy Bai MD Stopped at 12/04/24 1039 prochlorperazine (COMPAZINE) injection 10 mg 10 mg intravenous Q6H PRN Huey Hurtado MD rifAXIMin (XIFAXAN) tablet 550 mg 550 mg oral BID Destiney [place]anes [employer] SERVIC[employer] 550 mg at 12/05/24 0813 sodium chloride 0.9 % infusion 20 mL/hr intravenous Once Denilson Hodgson, sodium chloride flush 10 mL 10 mL intravenous PRN Huey Hurtado MD More meds No current facility-administered medications on file prior to encounter. Current Outpatient Medications on File Prior to Encounter Medication Sig Dispense Refill albuterol 90 mcg/actuation inhaler Inhale 1 puff by mouth every 6 (six) hours as needed for wheezing. ammonium lactate (AMLACTIN) 12 % cream Apply 1 g topically as needed for dry skin. aspirin 81 MG chewable tablet Take 1 tablet (81 mg total) by mouth daily. atorvastatin (LIPITOR) 20 MG tablet Take 1 tablet (20 mg total) by mouth nightly. bisoprolol (ZEBETA) 10 MG tablet Take 1 tablet (10 mg total) by mouth 2 (two) times daily. cholecalciferol (VITAMIN D3) 125 mcg (5,000 unit) tablet Take 2 tablets (10,000 Units total) by mouth daily. clopidogreL (PLAVIX) 75 mg tablet Take 1 tablet (75 mg total) by mouth daily Look-alike/Sound-alike medication. colestipoL (COLESTID) 1 gram tablet Take 2 tablets (2 g total) by mouth daily. dicyclomine (BENTYL) 10 MG capsule Take 1 capsule (10 mg total) by mouth 2 (two) times daily. furosemide (LASIX) 40 MG tablet Take 1 tablet (40 mg total) by mouth 2 (two) times daily. gabapentin (NEURONTIN) 800 MG tablet Take 1 tablet (800 mg total) by mouth 3 (three) times daily. Max Daily Amount: 2,400 mg HYDROcodone-acetaminophen (NORCO) 10-325 mg per tablet Take 1 tablet by mouth every 6 (six) hours as needed for pain. Max Daily Amount: 4 tablets hydrOXYzine pamoate (VISTARIL) 50 MG capsule Take 1 capsule (50 mg total) by mouth every night as needed for itching (sleep) Look-alike/Sound-alike medication. insulin aspart U-100 (NovoLOG) 100 unit/mL (3 mL) inpn Inject under the skin 4 (four) times daily before meals and nightly. lisinopriL (ZESTRIL) 10 MG tablet Take 1 tablet (10 mg total) by mouth 2 (two) times daily. metFORMIN (GLUCOPHAGE) 1000 MG tablet Take 1 tablet (1,000 mg total) by mouth 2 (two) times daily with breakfast and dinner Look-alike/Sound-alike medication. tirzepatide 7.5 mg/0.5 mL pnij Inject 7.5 mg under the skin every 7 days. triamcinolone (KENALOG) 0.1 % topical cream Apply 0.1 Applications topically daily to affected area.. Problem list and diagnosis Patient Active Problem List Diagnosis Anasarca Melena 1. Melena Case request operating room: ESOPHAGOGASTRODUODENOSCOPY (EGD) Case request operating room: ESOPHAGOGASTRODUODENOSCOPY (EGD) Lactate dehydrogenase (LDH), body fluid Lactate dehydrogenase (LDH), body fluid Body fluid cell count with differential Body fluid cell count with differential Body Fluid Culture + Gram Stain Body Fluid Culture + Gram Stain Anaerobic Culture Anaerobic Culture Fungus Culture W/ROSA MARIA Or Nimisha Ink Fungus Culture W/ROSA MARIA Or Nimisha Ink AFB Culture And Stain AFB Culture And Stain [facility] Non-Optometric Assistant Cytology [facility] Non-Optometric Assistant Cytology DIFFERENTIAL, BODY FLUID DIFFERENTIAL, BODY FLUID Body Fluid/CSF - Path Review () Body Fluid/CSF - Path Review () [facility] BONE MARROW SMEAR, ASPIRATION, AND STAIN [facility] BONE MARROW SMEAR, ASPIRATION, AND STAIN CANCELED: Glucose Body Fluid(SENDOUT) CANCELED: Glucose Body Fluid(SENDOUT) CANCELED: Total Protein, Body Fluid(SENDOUT) CANCELED: Total Protein, Body Fluid(SENDOUT) Past Medical History: Past Medical History: Diagnosis Date Cirrhosis, non-alcoholic (HCC) Diabetes mellitus (HCC) Hypertension Past Surgical History: Past Surgical History: Procedure Laterality Date ESOPHAGOGASTRODUODENOSCOPY (EGD),REMOVAL FOREIGN BODY N/A 12/01/2024 Procedure: EGD, WITH FOREIGN BODY REMOVAL; Surgeon: Scott Daley MD; [facility]; Service: Gastroenterology; Laterality: N/A; Allergies: No Known Allergies Social History: Tobacco Use Smoking status: Never Passive exposure: Never Smokeless tobacco: Never Substance Use Topics Alcohol use: Never Drug use: Never Marital Status: Family History: No family history on file. Review of Systems: Constitutional: Negative except as documented in history of present illness. Eye: Negative except as documented in history of present illness. Ear/Nose/Mouth/Throat: Negative except as documented in history of present illness. Respiratory: Negative except as documented in history of present illness. Cardiovascular: Negative except as documented in history of present illness. Gastrointestinal: Negative except as documented in history of present illness. Genitourinary: Negative except as documented in history of present illness. Hematology/Lymphatics: Negative except as documented in history of present illness. Endocrine: Negative except as documented in history of present illness. Immunologic: Negative except as documented in history of present illness. Musculoskeletal: Negative except as documented in history of present illness. Integumentary: Negative except as documented in history of present illness. Neurologic: Negative except as documented in history of present illness. Psychiatric: Negative except as documented in history of present illness. Physical Exam: Blood pressure (!) 148/69, pulse 97, temperature 98.4 ??F (36.9 ??C), temperature source Axillary, resp. rate 22, height 1.676 m (5' 6 ), weight 100.7 kg (222 lb 0.1 oz), SpO2 97%. General: Alert and oriented. Ill-appearing Eye: Pupils are equal, round and reactive to light. HENT: Normocephalic. Neck: Supple, Non-tender, No carotid bruit, No jugular venous distention. Respiratory: Decreased breath sound bilateral, Respirations are non-labored. Cardiovascular: regular rhythm, No murmur Gastrointestinal: Soft, Non-tender, slightly distended, Normal bowel sounds. Musculoskeletal: Normal range of motion. Integumentary: Warm, Dry, [place]. Neurologic: No obvious focal deficit Psychiatric: Cooperative, Appropriate mood & affect. Labs, Imaging, and Other Studies: Echo Results (last 7 days) Procedure Component Value Units Date/Time ECHO COMPLETE (DOPPLER / COLOR) W OR WO CONTRAST [[id number]] Collected: 11/30/24 0725 Order Status: Completed Updated: 11/30/24 1046 Narrative: TRANSTHORACIC ECHOCARDIOGRAPHY REPORT Demographics Patient Name: RIN JONES : 1960 Age: 64 year(s) Corporate ID Number: [id number] Gender Female Container Repairer: Giovanna Rock Height: 67 inches RDCS Referring Physician: HUEY HURTADO Weight: 225 pounds Interpreting JESSICA RAYMOND MD BMI: 35.24 kg/m^2 Physician: Date of Service: 11/30/2024 Blood Pressure: 118/59 mmHg Room Number: 579 Type of Study: TTE procedure: ECHO COMPLETE (DOPPLER / COLOR) W OR WO CONTRAST. Patient Status: Routine IP Study Location: PortableTechnical Quality: Adequate visualization History/Tech Notes: Indication: shortness of breath R06.02 Impression: ######################################## Normal sized left ventricle. Normal left ventricular wall thickness. Visually estimated ejection fraction 55% +/- 5%. Borderline systolic strain pattern. Increased left atrial pressure (Grade II diastolic dysfunction). Sclerotic aortic valve leaflets. Trivial pericardial effusion measuring 0.3cm. posteriorly. ######################################## Measurements Summary: LVEDd: 5.33 cm LVESd: 3.64 cm IVSEd: 0.88 cm AO Root:2.7 cm LVPWd: 0.87 cm Contractility Score Normal Left Ventricular contractility was noted. LV regional wall motion: (0-Not visualized 1-Normal 2-Hypokinesis 3-Akinesis 4-Dyskinesis 5-Aneurysm) Left Ventricle Peak E-wave: 1.31 Peak A-wave: 1.35 m/s E/A ratio: 0.97 m/s Volume [id number] LV length: 8.51 cm ml Volume [id number] ml LVOT diameter: 1.79 cm Normal sized left ventricle. Normal left ventricular wall thickness. Visually estimated ejection fraction 55% +/- 5%. Borderline systolic strain pattern. Increased left atrial pressure (Grade II diastolic dysfunction). No left ventricular masses or thrombi. Right Ventricle Diastolic dimension: 3.92 RV systolic pressure: 28.12 mmHg cm Normal sized right ventricle. Normal TAPSE c/w normal right ventricular function Left Atrium LA dimension: 4 cm LA volume:83.13 ml LA/Aorta: 1.48 Abnormal left atrial volume index 39 ml/m^2. Intact atrial septum. No atrial mass or thrombus. Right Atrium Normal sized right atrium. Intact atrial septum. No atrial mass or thrombus. Mitral Valve Deceleration time: 261.56 msec Thickened mitral valve leaflets. Mild (1+) mitral regurgitation. No mitral stenosis. No masses or vegetations seen. Aortic Valve AV VTI: 53.02 Area continuity: 1.13 Peak velocity: 2.38 m/s cm cm^2 Peak gradient: 22.63 LVOT VTI: 23.85 Mean velocity: 1.76 mmHg cm m/s Mean gradient: 13.56 mmHg Sclerotic aortic valve leaflets. Mildly thickend free edges of the aortic valve leaflets. No aortic regurgitation. No aortic stenosis. No masses or vegetations seen. Tricuspid Valve TR velocity: 2.51 m/s TR gradient: 25.25510 mmHg Estimated RAP: 3 mmHg RVSP: 28.12 mmHg Structurally normal tricuspid valve. Trace tricuspid valve regurgitation. No tricuspid stenosis. No masses or vegetations seen. Pulmonic Valve Acceleration time: 110.37 msec PASP: 28.12 mmHg Structurally normal pulmonic valve. Trace pulmonary valve regurgitation. No pulmonic stenosis. No masses or vegetations seen. Great Vessels Aorta Aortic Root: 2.7 cm LVOT Diameter: 1.79 cm Visualized thoracic aorta is normal. Normal aortic root. No evidence of dissection. Normal IVC with appropriate collapse. Pericardium / Pleura Trivial pericardial effusion measuring 0.3cm. posteriorly. Other Ascites noted in subcostal imaging. Sodium Date Value Ref Range Status 12/05/2024 146 (H) 136 - 145 meq/L Final Potassium Date Value Ref Range Status 12/05/2024 3.6 3.4 - 5.1 meq/L Final Chloride Date Value Ref Range Status 12/05/2024 117 (H) 98 - 112 meq/L Final CO2 Date Value Ref Range Status 12/05/2024 20 (L) 22 - 29 meq/L Final BUN Date Value Ref Range Status 12/05/2024 59.4 (H) 9.8 - 20.1 mg/dL Final Creatinine Date Value Ref Range Status 12/05/2024 3.14 (H) 0.57 - 1.11 mg/dL Final eGFR (mL/min/1.73m2) Date Value Ref Range Status 12/05/2024 16 (L) >=60 mL/min/1.73m2 Final Calcium Date Value Ref Range Status 12/05/2024 8.3 (L) 8.4 - 10.2 mg/dL Final WBC Date Value Ref Range Status 12/05/2024 4.2 4.0 - 10.0 K/??L Final 12/04/2024 4.1 4.0 - 10.0 K/??L Final 12/04/2024 3.2 (L) 4.0 - 10.0 K/??L Final RBC Date Value Ref Range Status 12/05/2024 2.64 (L) 3.93 - 5.22 M/??L Final 12/04/2024 2.90 (L) 3.93 - 5.22 M/??L Final 12/04/2024 2.88 (L) 3.93 - 5.22 M/??L Final Hemoglobin Date Value Ref Range Status 12/05/2024 8.2 (L) 11.2 - 15.7 GM/DL Final 12/05/2024 8.2 (L) 11.2 - 15.7 GM/DL Final 12/04/2024 8.7 (L) 11.2 - 15.7 GM/DL Final Hematocrit Date Value Ref Range Status 12/05/2024 25.9 (L) 34.1 - 44.9 % Final 12/04/2024 29.0 (L) 34.1 - 44.9 % Final 12/04/2024 28.4 (L) 34.1 - 44.9 % Final Platelets Date Value Ref Range Status 12/05/2024 60 (L) 140 - 375 K/CU MM Final 12/04/2024 65 (L) 140 - 375 K/CU MM Final 12/04/2024 61 (L) 140 - 375 K/CU MM Final No results found for: TSH , MAGNESIUM .[facility] Lab Results Component Value Date K 3.6 12/05/2024 Lab Results Component Value Date CREATININE 3.14 (H) 12/05/2024 No results found for: TSH No results found for: MAGNESIUM AST Date Value Ref Range Status 12/05/2024 23 11 - 34 U/L Final Comment: AST2 reagent used for testing does not contain P5P supplementation and therefore may miss AST elevations in patients with B6 deficiency. This population may be as high as 10% in the [place], with risk factors including malabsorption, drug interactions, and alcoholic hepatitis. ALT Date Value Ref Range Status 12/05/2024 8 <=34 U/L Final Comment: ALT2 reagent used for testing does not contain P5P supplementation and therefore may miss ALT elevations in patients with B6 deficiency. This population may be as high as 10% in the [place], with risk factors including malabsorption, drug interactions, and alcoholic hepatitis. Echo Results (last 7 days) Procedure Component Value Units Date/Time ECHO COMPLETE (DOPPLER / COLOR) W OR WO CONTRAST [[id number]] Collected: 11/30/24724 Order Status: Completed Updated: 11/30/24 104 Narrative: TRANSTHORACIC ECHOCARDIOGRAPHY REPORT Demographics Patient Name: RIN JONES : 1960 Age: 64 year(s) Corporate ID Number: [id number] Gender Female Container Repairer: Giovanna Rock Height: 67 inches [facility] Referring Physician: HUEY HURTADO Weight: 225 pounds Interpreting JESSICA RAYMOND MD BMI: 35.24 kg/m^2 Physician: Date of Service: 11/30/2024 Blood Pressure: 118/59 mmHg Room Number: 579 Type of Study: TTE procedure: ECHO COMPLETE (DOPPLER / COLOR) W OR WO CONTRAST. Patient Status: Routine IP [facility] History/Tech Notes: Indication: shortness of breath R06.02 Impression: ######################################## Normal sized left ventricle. Normal left ventricular wall thickness. Visually estimated ejection fraction 55% +/- 5%. Borderline systolic strain pattern. Increased left atrial pressure (Grade II diastolic dysfunction). Sclerotic aortic valve leaflets. Trivial pericardial effusion measuring 0.3cm. posteriorly. ######################################## Measurements Summary: LVEDd: 5.33 cm LVESd: 3.64 cm IVSEd: 0.88 cm AO Root:2.7 cm LVPWd: 0.87 cm Contractility Score Normal Left Ventricular contractility was noted. LV regional wall motion: (0-Not visualized 1-Normal 2-Hypokinesis 3-Akinesis 4-Dyskinesis 5-Aneurysm) Left Ventricle Peak E-wave: 1.31 Peak A-wave: 1.35 m/s E/A ratio: 0.97 m/s Volume [id number] LV length: 8.51 cm ml Volume [id number] ml LVOT diameter: 1.79 cm Normal sized left ventricle. Normal left ventricular wall thickness. Visually estimated ejection fraction 55% +/- 5%. Borderline systolic strain pattern. Increased left atrial pressure (Grade II diastolic dysfunction). No left ventricular masses or thrombi. Right Ventricle Diastolic dimension: 3.92 RV systolic pressure: 28.12 mmHg cm Normal sized right ventricle. Normal TAPSE c/w normal right ventricular function Left Atrium LA dimension: 4 cm LA volume:83.13 ml LA/Aorta: 1.48 Abnormal left atrial volume index 39 ml/m^2. Intact atrial septum. No atrial mass or thrombus. Right Atrium Normal sized right atrium. Intact atrial septum. No atrial mass or thrombus. Mitral Valve Deceleration time: 261.56 msec Thickened mitral valve leaflets. Mild (1+) mitral regurgitation. No mitral stenosis. No masses or vegetations seen. Aortic Valve AV VTI: 53.02 Area continuity: 1.13 Peak velocity: 2.38 m/s cm cm^2 Peak gradient: 22.63 LVOT VTI: 23.85 Mean velocity: 1.76 mmHg cm m/s Mean gradient: 13.56 mmHg Sclerotic aortic valve leaflets. Mildly thickend free edges of the aortic valve leaflets. No aortic regurgitation. No aortic stenosis. No masses or vegetations seen. Tricuspid Valve TR velocity: 2.51 m/s TR gradient: 25.61673 mmHg Estimated RAP: 3 mmHg RVSP: 28.12 mmHg Structurally normal tricuspid valve. Trace tricuspid valve regurgitation. No tricuspid stenosis. No masses or vegetations seen. Pulmonic Valve Acceleration time: 110.37 msec PASP: 28.12 mmHg Structurally normal pulmonic valve. Trace pulmonary valve regurgitation. No pulmonic stenosis. No masses or vegetations seen. Great Vessels Aorta Aortic Root: 2.7 cm LVOT Diameter: 1.79 cm Visualized thoracic aorta is normal. Normal aortic root. No evidence of dissection. Normal IVC with appropriate collapse. Pericardium / Pleura Trivial pericardial effusion measuring 0.3cm. posteriorly. Other Ascites noted in subcostal imaging. Assessment and Plan: *Paroxysmal Atrial Fib [id number] of 2 also have some wide-complex tachycardia aberrancy versus nonsustained VT longest about 10 beats echocardiogram showed normal EF in November 2024 patient seems asymptomatic *Non-alcoholic Liver Cirrhosis decompensated with ascites status post paracentesis 6 L removed on 11/30/2024 also underwent an EGD that shows duodenal ulcer but no evidence of active bleeding *CAD *Diabetes mellitus *HTN *HLD *pancytopenia *GERMÁN current GFR 15. Plan: 12/05/2024 Labs and telemetry reviewed. Patient remains in sinus rhythm. Stop IV amiodarone. Transfer on the floor. Continue p.o. amiodarone 12/04/2024 Labs and telemetry reviewed. Patient had no arrhythmia overnight. Antiarrhythmic logan we are limited with kidney failure. Will do low-dose of amiodarone for now g even though she has some liver failure. Will use low-dose and monitor liver enzymes. 12/03/2024 Labs and telemetry reviewed. Keep electrolytes within normal limit. Patient received a bolus of amiodarone that converted her. If further arrhythmia can always do bolus drip of amiodarone however concern is due to liver function. Further recommendations pending testing results, clinical course, and response to therapy. * Alex Barajas, PT - 12/05/2024 9:33 AM EDT Images from the original note were not included. Inpatient Physical Therapy Initial Evaluation Patient Name: Mary Coronel Date of : 1960 Date of Evaluation: 12/05/24 In Time 0859 Out Time 0929 Session Duration 30 minutes Time spent for nursing collaboration, chart and systems review, and clinical reasoning. 8 minutes Total Time 38 minutes Pt is a 64 y.o. female admitted on 11/30/2024 with Anasarca [R60.1]. Past Medical History: Diagnosis Date Cirrhosis, non-alcoholic (HCC) Diabetes mellitus (HCC) Hypertension Past Surgical History: Procedure Laterality Date ESOPHAGOGASTRODUODENOSCOPY (EGD),REMOVAL FOREIGN BODY N/A 12/01/2024 Procedure: EGD, WITH FOREIGN BODY REMOVAL; Surgeon: Scott Daley MD; [facility]; Service: Gastroenterology; Laterality: N/A; General Visit Type: Initial Evaluation Approved By: Nurse Chu Patient Disposition Upon Entry: Supine in bed, Call Light/Pull Cord in reach, All needs met and within reach, Nursing aware/notified, HOB >30 degrees, Side rails up, Visitor/Family present Patient Verified By: Name and Date of Precautions Weight-Bearing Status: No Restrictions Precautions: Fall risk Isolation Precautions: Standard Subjective Subjective: Patient agreeable to physical therapy evaluation and treatment. Pain No - Patient not reporting pain at this time Cognition Overall cognitive status: Patient is awake and alert, attending to directions appropriately, demonstrating good problem solving skills, and aware of any deficits or impairments, if present. Orientation Level: Oriented x4 Following commands: Follows all commands and directions without difficulty Home Living Lives with: Alone Home Type: House Home Layout: One level Stairs to enter: None Stairs inside home: none Home Equipment: Rolling walker, Rollator, BSC, Shower chair Functional Mobility PLOF: Patient reports being complete independent with all functional mobility prior to onset. Activities of Daily Living PLOF: Patient reports being complete independent with all ADL's prior toonset. Fall History: No, patient denies any falls over the last 6 months. Objective Vitals Pre-intervention vitals Heart rate: 100 beats per minute Blood pressure: 143/64 mmHg SpO2: 98% O2: 3 (L/min) nasal cannula Post-intervention vitals Heart rate: 97 beats per minute Blood pressure: 131/62 mmHg SpO2: 96% O2 : 3 (L/min) nasal cannula Basic Strength Assessment WFL per functional testing in all extremities Range of Motion Assessment WFL for all extremities Sensation WNL Coordination Coordination is intact and within normal limits. Functional Mobility Bed Mobility Rolling Left: modified independent Rolling Right: modified independent Supine to Sit: stand by assist Sit to Supine: stand by assist Transfers Sit to Stand: stand by assist, gait belt used, rolling walker used Stand to Sit: stand by assist, gait belt used, rolling walker used Gait Gait Assistance: supervision, 1-person assist Assistive Device: Gait Belt, Rolling walker Distance: 360ft Gait speed: good, but pt has a tendency to ambulate too fast Deviation(s): pt needs cues to slow down to avoid LOB/festination Stair Management Unable to assess due to CCU. Wheelchair Mobility Not assessed, patient ambulatory. Outcome Measures [facility] Basic Mobility Inpatient Short Form How much difficulty does the patient currently have: Turning over in bed (including adjusting bedclothes, sheets, and blankets)? (1) Total/Unable (not able to do the activity or can only perform the activity using assistive devices or requires assistance from another person, including supervision or cueing for safety) Sitting down on and standing up from a chair with arms (e.g., wheelchair, bedside commode, etc.)? (1) Total/Unable (not able to do the activity or can only perform the activity using assistive devices or requires assistance from another person, including supervision or cueing for safety) Moving from lying on back to sitting on side of bed? (1) Total/Unable (not able to do the activity or can only perform the activity using assistive devices or requires assistance from another person,including supervision or cueing for safety) How much help from another person does the patient currently need: Moving to and from a bed to a chair (including a wheelchair)? (3) A little (Minimal/Contact guard/Supervision/Setup) Need to walk in hospital room? (3) A little (Minimal/Contact guard/Supervision/Setup) Climbing 3-5 steps with a railing? (3) A little (Minimal/Contact guard/Supervision/Setup) Score Raw score=12 t-Scale score=35.33 Standard error=3.08 CMS 0-100%=68.66% MDC=4.72 A raw score of >= 16 is significantly associated with increased odds of discharge to home in addition to consideration made for the patient's cognition and social determinants of health. Balance Static/dynamic sitting and static/dynamic standing balance grades Balance Grade Sitting Static Good - patient able to maintain balance without handhold support, limited postural sway Sitting Dynamic Fair - patient accepts minimal challenge; able to maintain balance while turning head/trunk Standing Static Good - patient able to maintain balance without handhold support, limited postural sway Standing Dynamic Fair - patient accepts minimal challenge; able to maintain balance while turning head/trunk Activity Tolerance Patient limited with activity/intervention due to fatigue Treatment Pt SBA for supine>sit>supine and sit>stand. Pt ambulated 360ft in hallway RW supervision wno LOB but noted w need to slow gait in order to maintain proper balance. Pt returned to room fatigued and assisted back to lay in bed w all needs met and sister present. Assessment Pt w favorable mobility eval suggesting she will be appropriate to DC home. Some weakness w sit to stands and balance deficits noted. Treatment plan will focus on BLE strength and balance w gait training as needed. Pt will benefit from skilled therapy to ensure improved independence and safety for home DC. Problems: Decreased core stability, Decreased functional mobility, Decreased gait tolerance, Decreased strength, Decreased activity tolerance, Impaired standing balance, Impaired dynamic balance, Gait impairment Rehab potential: Good for stated goals Plan Treatment Plan: Therapeutic Exercise, Therapeutic Activity, Gait Training, Transfer Training, Balance Training, Strengthening, Home Exercise Program, ROM, Patient/Family/Caregiver Education, DME Recommendations, Stretching PT Frequency/Duration: 5x/week for 14 days Recommendations Discharge recommendations: Discharge home/prior living situation. Patient would benefit from continued therapy services. DME recommendations: Patient has no DME/adaptive equipment discharge needs at this time. Goals Supine to/from sit: IND from bed flat Sit to/from stand: Deidra RW Gait: 450ft RW Deidra Balance: Pt will stand 2min unsupported in normal stance no LOB SBA only Target Date: 12/19/2024 Goals were discussed with patient Education Patient educated on role of physical therapy and plan of care and following, they were able to verbalize understanding. No further questions or concerns stated. Patient Disposition Upon Leaving Supine in bed, Call Light/Pull Cord in reach, All needs met and within reach, Nursing aware/notified, HOB >30 degrees, Side rails up, Visitor/Family present If this patient discharges prior to next therapy session, this note serves as the patient's discharge summary. Electronically signed by Alex Barajas PT - 12/05/24 - 9:33 AM EDT PT Evaluation Completed * Hill Boo MD - 12/05/2024 9:07 AM EDT Subjective No acute events overnight. No new complain Review of Systems No CP, SOA, N/V, fever, chills or rash Objective Last Recorded Vitals Blood pressure 130/60, pulse 94, temperature 98 ??F (36.7 ??C), temperature source Axillary, resp. rate 28, height 1.676 m (5' 6 ), weight 100.7 kg (222 lb 0.1 oz), SpO2 97%. Physical Exam Gen: Alert, NAD HEENT: NC, AT Neck: Supple, no JVD Lungs: CTA. Non labored, symetrical chest expansion CVS: SI/S2 audible. RRR, No M/G noted Abd: soft, NT, ND, BS + Ext: +++ Pedal edema , no cyanosis WALLPAPERER HELPER: Alert, No focal deficit noted grossly Psy: Cooperative Labs: Results for orders placed or performed during the hospital encounter of 11/30/24 (from the past 24 hours) Glucose, Nova Meter Status: Abnormal Collection Time: 12/04/24 10:52 AM Result Value Ref Range POC-GLUCOSE 136 (H) 70 - 110 mg/dL Laboratory Scientist [id number] Basic Metabolic Panel Status: Abnormal Collection Time: 12/04/24 10:53 AM Result Value Ref Range Sodium 146 (H) 136 - 145 meq/L Potassium 3.6 3.4 - 5.1 meq/L CO2 20 (L) 22 - 29 meq/L Chloride 116 (H) 98 - 112 meq/L Glucose 137 (H) 82 - 115 mg/dL BUN 61.1 (H) 9.8 - 20.1 mg/dL Creatinine 3.38 (H) 0.57 - 1.11 mg/dL BUN/Creatinine 18 8 - 20 Calcium 8.5 8.4 - 10.2 mg/dL Anion Gap 14 (H) 4 - 12 eGFR (mL/min/1.73m2) 15 (L) >=60 mL/min/1.73m2 Osmolality Calc 310.0 mOsm/kg Hemoglobin Status: Abnormal Collection Time: 12/04/24 4:27 PM Result Value Ref Range Hemoglobin 8.9 (L) 11.2 - 15.7 GM/DL Glucose, Nova Meter Status: Abnormal Collection Time: 12/04/24 4:50 PM Result Value Ref Range POC-GLUCOSE 137 (H) 70 - 110 mg/dL Laboratory Scientist [id number] ECG 12 lead Status: None (In process) Collection Time: 12/04/24 8:08 PM Result Value Ref Range SYSTOLIC BLOOD PRESSURE (MCT) 133 mmHg DIASTOLIC BLOOD PRESSURE (MCT) 61 mmHg VENTRICULAR RATE EKG/MIN 85 BPM ATRIAL RATE (MCT) 85 BPM MI Interval 140 ms QRS-INTERVAL (MSEC) 94 ms QT Interval 426 ms QTC Interval 506 ms P [place] 44 degrees R AXIS (MCT) 27 degrees T Wave [place] -27 degrees Bryan Diagnosis Normal sinus rhythm Nonspecific T wave abnormality Abnormal ECG When compared with ECG of 04-DEC-2024 03:25, QT has lengthened Glucose, Nova Meter Status: Abnormal Collection Time: 12/04/24 10:20 PM Result Value Ref Range POC-GLUCOSE 147 (H) 70 - 110 mg/dL Laboratory Scientist [id number] Hemoglobin Status: Abnormal Collection Time: 12/04/24 11:54 PM Result Value Ref Range Hemoglobin 8.7 (L) 11.2 - 15.7 GM/DL CBC - Hemogram (SJ-BKR) Status: Abnormal Collection Time: 12/05/24 3:20 AM Result Value Ref Range WBC 4.2 4.0 - 10.0 K/??L RBC 2.64 (L) 3.93 - 5.22 M/??L Hemoglobin 8.2 (L) 11.2 - 15.7 GM/DL Hematocrit 25.9 (L) 34.1 - 44.9 % MCV 98 (H) 79 - 95 fL MCH 31.1 25.6 - 32.2 pg MCHC 31.7 (L) 32.2 - 35.5 GM/DL RDW 17.1 (H) 11.7 - 14.4 % Platelets 60 (L) 140 - 375 K/CU MM MPV 11.3 9.4 - 12.3 fL Magnesium Status: Normal Collection Time: 12/05/24 3:20 AM Result Value Ref Range Magnesium 2.3 1.6 - 2.6 mg/dL Comprehensive Metabolic Panel Status: Abnormal Collection Time: 12/05/24 3:20 AM Result Value Ref Range Sodium 146 (H) 136 - 145 meq/L Potassium 3.6 3.4 - 5.1 meq/L Chloride 117 (H) 98 - 112 meq/L CO2 20 (L) 22 - 29 meq/L Calcium 8.3 (L) 8.4 - 10.2 mg/dL Glucose 148 (H) 82 - 115 mg/dL BUN 59.4 (H) 9.8 - 20.1 mg/dL Creatinine 3.14 (H) 0.57 - 1.11 mg/dL BUN/Creatinine 19 8 - 20 eGFR (mL/min/1.73m2) 16 (L) >=60 mL/min/1.73m2 Albumin 4.3 3.5 - 5.0 g/dL Alkaline Phosphatase 44 40 - 150 U/L ALT 8 <=34 U/L AST 23 11 - 34 U/L Total Bilirubin 1.2 0.2 - 1.2 mg/dL Protein, Total 6.4 6.4 - 8.3 g/dL Globulin 2.1 (L) 2.5 - 4.1 g/dL Anion Gap 13 (H) 4 - 12 A/G Ratio 2.0 (H) 0.7 - 1.9 Osmolality Calc 310.0 mOsm/kg Ammonia Status: Normal Collection Time: 12/05/24 3:20 AM Result Value Ref Range Ammonia 41 18 - 72 ??mol/L Hemoglobin Status: Abnormal Collection Time: 12/05/24 8:00 AM Result Value Ref Range Hemoglobin 8.2 (L) 11.2 - 15.7 GM/DL Glucose, Nova Meter Status: Abnormal Collection Time: 12/05/24 8:10 AM Result Value Ref Range POC-GLUCOSE 123 (H) 70 - 110 mg/dL Laboratory Scientist [id number] XR chest AP portable Narrative: PORTABLE CHEST HISTORY: Acute shortness of breath. COMPARISON: One day prior. FINDINGS: The heart is mildly enlarged in size, stable. The mediastinum is unremarkable. There has been mild interval worsening of the vascular engorgement and pulmonary edema. There is no pneumothorax. Impression: Mild interval worsening of vascular engorgement and pulmonary edema. Images reviewed, interpreted, and dictated by Dr. Haseeb Gil. Transcribed by Regina Villasenor PA-C. Recent Labs Lab(s) Units 12/05/24 0810 12/05/24 0800 12/05/24 0320 12/04/24 2354 12/04/24 2220 12/04/24 1650 12/04/24 1627 12/04/24 1053 12/04/24 1052 12/04/24 0815 12/04/24 0613 12/04/24 0335 12/04/24 0334 12/03/24 1045 12/03/24 0831 12/03/24 0739 12/02/24 0504 12/02/24 0338 NA meq/L -- -- 146* -- -- -- -- 146* -- -- -- -- 143 -- -- 147* -- 146* K meq/L -- -- 3.6 -- -- -- -- 3.6 -- -- -- -- 3.7 -- -- 4.1 -- 4.2 CL meq/L -- -- 117* -- -- -- -- 116* -- -- -- -- 115* -- -- 119* -- 118* CO2 meq/L -- -- 20* -- -- -- -- 20* -- -- -- -- 20* -- -- 20* -- 19* BUN mg/dL -- -- 59.4* -- -- -- -- 61.1* -- -- -- -- 58.6* -- -- 53.7* -- 55.1* CREATININE mg/dL -- -- 3.14* -- -- -- -- 3.38* -- -- -- -- 3.43* -- -- 3.48* -- 3.55* ALBUMIN g/dL -- -- 4.3 -- -- -- -- -- -- -- -- -- 4.2 -- -- 4.4 -- 3.6 GLUCOSE mg/dL 123* -- 148* -- 147* 137* -- 137* < > -- < > -- 203* < > -- 145* < > 107 CALCIUM mg/dL -- -- 8.3* -- -- -- -- 8.5 -- -- -- -- 8.3* -- -- 8.3* -- 7.9* WBC K/??L -- -- 4.2 -- -- -- -- -- -- 4.1 -- 3.2* -- -- 2.8* -- -- 3.0* PLT K/CU MM -- -- 60* -- -- -- -- -- -- 65* -- 61* -- -- 55* -- -- 57* HGB GM/DL -- 8.2* 8.2* 8.7* -- -- 8.9* -- -- 8.8* 9.0* -- 8.9* -- < > 8.2* -- < > 7.6* < > = values in this interval not displayed. Intake/Output Summary (Last 24 hours) at 12/05/2024 0907 Last data filed at 12/05/2024 0600 Gross per 24 hour Intake 200 ml Output 1500 ml Net -1300 ml Assessment 1- Anasarca - liver disease and low albumin level plus NSAID for one month 2- GERMÁN on CKD - Unknown baseline - on Lisinopril at home. Third spacing and recently increased doseof diuretics. Pre-renal azotemia - On lisinopril and NSAID and recently increased dose of diureticswith low albumin level vs HRS- Feure[place] 27% suggestive of pre-renal azotemia 3- Hypoalbuminemia - UPCR 0.19 -non nephrotic range proteinuria RBC 0-2 4- Pancytopenia -Hematology following - S/p EGD 12/01/24showing duodenal ulcer and small varices. S/pbone marrow biopsy 5- hx of DM 6- HTN 7- NAFLD 8- Ascites Plan: - Continue with diuretics- bumex and aldactone - Monitor I/O strictly - Avoid nephrotoxic agents - no NSAID - Continue to hold Lisinopril and metformin for GERMÁN - Renal diet - Adjust meds per renal function - No emergent need of PHARMACOMETRICIAN - Monitor H/H and transfuse for Hgb less than 7.0 - Serologic workup pending Discussed with patient * Hector Deshpande MD - 12/05/2024 8:36 AM EDT Images from the original note were not included. Consults PULMONARY AND CRITICAL CARE Consult Note Date of Service: 12/05/2024 HPI: This is a 64 y.o. year old female with past medical history as below. She initially presented to [facility] with swollen abdomen, abdominal discomfort, and bilateral lower extremity pain. Her creatinine was elevated and as a result, she was transferred to [facility] for he patorenal syndrome. Upon arrival here, she endorsed a 4-week history of shortness of breath, orthopnea, and ataxia along with the abdominal and lower extremity edema. She also endorsed recent black, tarry stools as well. Upon arrival here, labs of significance included WBC 1.9, platelets 64, creatinine 4.15, and CK 356. She underwent a paracentesis on 11/30 with 6 liters removed. EGD on 12/01 revealed a duodenal ulcer, but no evidence of active bleeding. She underwent a bone marrow biopsy on 12/02 and pathology result is still pending. On 12/03, she began having atrial fib with some runs of non-sustained v. tach. She is currently beingtransferred to the unit and Pulmonary has been consulted for critical care management. 12/04 I have seen and examined the patient this morning, her sister at bedside, have discussed with the patient and his sister about the patient condition answered all the questions and concerns, theyexpressed transcending, discussed with nephrology about the patient condition and plan, chest x-shawna 12/04 interpreted independently showed low lung volume bilaterally with worsening pulmonary edemaand vascular congestion, on nasal cannula 3 L oxygen saturation 95%, respiratory 27, pressure 140/65, pulse 86, temperature 98.2, ABG 7.29/43/100/6 with bicarb of 21, hemoglobin 9, platelets 65, WBC 4.1, sodium 146, creatinine 3.38, fluid balance +300 mL, on ceftriaxone. PAST MEDICAL HISTORY: Past Medical History: Diagnosis Date Cirrhosis, non-alcoholic (HCC) Diabetes mellitus (HCC) Hypertension PAST SURGICAL HISTORY: Past Surgical History: Procedure Laterality Date ESOPHAGOGASTRODUODENOSCOPY (EGD),REMOVAL FOREIGN BODY N/A 12/01/2024 Procedure: EGD, WITH FOREIGN BODY REMOVAL; Surgeon: Scott Daley MD; [facility]; Service: Gastroenterology; Laterality: N/A; Allergies: No Known Allergies SOCIAL HISTORY: Social History Tobacco Use Smoking status: Never Passive exposure: Never Smokeless tobacco: Never Substance Use Topics Alcohol use: Never Drug use: Never FAMILY HISTORY: family history is not on file. Review of Systems Constitutional: Positive for malaise/fatigue. Respiratory: Positive for shortness of breath. Negative for cough and sputum production. Cardiovascular: Positive for leg swelling. Negative for chest pain. Gastrointestinal: Negative for abdominal pain, nausea and vomiting. Neurological: Positive for weakness. All other systems reviewed and are negative. Vital Signs Temp: [97.4 ??F (36.3 ??C)-98.4 ??F (36.9 ??C)] 98 ??F (36.7 ??C) Pulse: [76-94] 94 Resp: [9-32] 28 BP: (119-175)/(56-82) 130/60 FiO2 (%): [60 %] 60 % Current: Temp: 98 ??F (36.7 ??C) Pulse: 94 Resp: 28 BP: 130/60 SpO2: 97 % 24 Hour: BP Min: 119/58 Max: 175/74 Temp Min: 97.4 ??F (36.3 ??C) Max: 98.4 ??F (36.9 ??C) Pulse Min: 76 Max: 94 Resp Min: 9 Max: 32 SpO2 Min: 96 % Max: 100 % Weight Min: 100.7 kg (222 lb 0.1 oz) Max: 100.7 kg (222 lb 0.1 oz) Intake/Output: I/O last 3 completed shifts: In: 840 [P.O.:640; IV Piggyback:200] Out: 1500 [Urine:1500] Physical Exam Constitutional: General: She is not in acute distress. Appearance: She is obese. She is ill-appearing. Comments: 3L NC HENT: Head: Normocephalic. Nose: Nose normal. Mouth/Throat: Mouth: Mucous membranes are moist. Pharynx: Oropharynx is clear. Eyes: Pupils: Pupils are equal, round, and reactive to light. Cardiovascular: Rate and Rhythm: Normal rate and regular rhythm. Pulses: Normal pulses. Heart sounds: Normal heart sounds. Pulmonary: Effort: Pulmonary effort is normal. No respiratory distress. Breath sounds: Examination of the right-lower field reveals decreased breath sounds. Examination ofthe left-lower field reveals decreased breath sounds. Decreased breath sounds present. Abdominal: General: Bowel sounds are normal. Palpations: Abdomen is soft. Musculoskeletal: Cervical back: Normal range of motion. Right lower leg: Edema present. Left lower leg: Edema present. Skin: General: Skin is warm and dry. Capillary Refill: Capillary refill takes less than 2 seconds. Neurological: Mental Status: She is alert and oriented to person, place, and time. Mental status is at baseline. Psychiatric: Mood and Affect: Mood normal. Behavior: Behavior normal. Vent / O2 Management: FiO2 (%): [60 %] 60 % LABS Results for orders placed or performed during the hospital encounter of 11/30/24 (from the past 24 hours) Glucose, Nova Meter Status: Abnormal Collection Time: 12/04/24 10:52 AM Result Value Ref Range POC-GLUCOSE 136 (H) 70 - 110 mg/dL Laboratory Scientist [id number] Basic Metabolic Panel Status: Abnormal Collection Time: 12/04/24 10:53 AM Result Value Ref Range Sodium 146 (H) 136 - 145 meq/L Potassium 3.6 3.4 - 5.1 meq/L CO2 20 (L) 22 - 29 meq/L Chloride 116 (H) 98 - 112 meq/L Glucose 137 (H) 82 - 115 mg/dL BUN 61.1 (H) 9.8 - 20.1 mg/dL Creatinine 3.38 (H) 0.57 - 1.11 mg/dL BUN/Creatinine 18 8 - 20 Calcium 8.5 8.4 - 10.2 mg/dL Anion Gap 14 (H) 4 - 12 eGFR (mL/min/1.73m2) 15 (L) >=60 mL/min/1.73m2 Osmolality Calc 310.0 mOsm/kg Hemoglobin Status: Abnormal Collection Time: 12/04/24 4:27 PM Result Value Ref Range Hemoglobin 8.9 (L) 11.2 - 15.7 GM/DL Glucose, Nova Meter Status: Abnormal Collection Time: 12/04/24 4:50 PM Result Value Ref Range POC-GLUCOSE 137 (H) 70 - 110 mg/dL Laboratory Scientist [id number] ECG 12 lead Status: None (In process) Collection Time: 12/04/24 8:08 PM Result Value Ref Range SYSTOLIC BLOOD PRESSURE (MCT) 133 mmHg DIASTOLIC BLOOD PRESSURE (MCT) 61 mmHg VENTRICULAR RATE EKG/MIN 85 BPM ATRIAL RATE (MCT) 85 BPM MI Interval 140 ms QRS-INTERVAL (MSEC) 94 ms QT Interval 426 ms QTC Interval 506 ms P [place] 44 degrees R AXIS (MCT) 27 degrees T Wave [place] -27 degrees Bryan Diagnosis Normal sinus rhythm Nonspecific T wave abnormality Abnormal ECG When compared with ECG of 04-DEC-2024 03:25, QT has lengthened Glucose, Nova Meter Status: Abnormal Collection Time: 12/04/24 10:20 PM Result Value Ref Range POC-GLUCOSE 147 (H) 70 - 110 mg/dL Laboratory Scientist [id number] Hemoglobin Status: Abnormal Collection Time: 12/04/24 11:54 PM Result Value Ref Range Hemoglobin 8.7 (L) 11.2 - 15.7 GM/DL CBC - Hemogram (SJ-BKR) Status: Abnormal Collection Time: 12/05/24 3:20 AM Result Value Ref Range WBC 4.2 4.0 - 10.0 K/??L RBC 2.64 (L) 3.93 - 5.22 M/??L Hemoglobin 8.2 (L) 11.2 - 15.7 GM/DL Hematocrit 25.9 (L) 34.1 - 44.9 % MCV 98 (H) 79 - 95 fL MCH 31.1 25.6 - 32.2 pg MCHC 31.7 (L) 32.2 - 35.5 GM/DL RDW 17.1 (H) 11.7 - 14.4 % Platelets 60 (L) 140 - 375 K/CU MM MPV 11.3 9.4 - 12.3 fL Magnesium Status: Normal Collection Time: 12/05/24 3:20 AM Result Value Ref Range Magnesium 2.3 1.6 - 2.6 mg/dL Comprehensive Metabolic Panel Status: Abnormal Collection Time: 12/05/24 3:20 AM Result Value Ref Range Sodium 146 (H) 136 - 145 meq/L Potassium 3.6 3.4 - 5.1 meq/L Chloride 117 (H) 98 - 112 meq/L CO2 20 (L) 22 - 29 meq/L Calcium 8.3 (L) 8.4 - 10.2 mg/dL Glucose 148 (H) 82 - 115 mg/dL BUN 59.4 (H) 9.8 - 20.1 mg/dL Creatinine 3.14 (H) 0.57 - 1.11 mg/dL BUN/Creatinine 19 8 - 20 eGFR (mL/min/1.73m2) 16 (L) >=60 mL/min/1.73m2 Albumin 4.3 3.5 - 5.0 g/dL Alkaline Phosphatase 44 40 - 150 U/L ALT 8 <=34 U/L AST 23 11 - 34 U/L Total Bilirubin 1.2 0.2 - 1.2 mg/dL Protein, Total 6.4 6.4 - 8.3 g/dL Globulin 2.1 (L) 2.5 - 4.1 g/dL Anion Gap 13 (H) 4 - 12 A/G Ratio 2.0 (H) 0.7 - 1.9 Osmolality Calc 310.0 mOsm/kg Ammonia Status: Normal Collection Time: 12/05/24 3:20 AM Result Value Ref Range Ammonia 41 18 - 72 ??mol/L Hemoglobin Status: Abnormal Collection Time: 12/05/24 8:00 AM Result Value Ref Range Hemoglobin 8.2 (L) 11.2 - 15.7 GM/DL Glucose, Nova Meter Status: Abnormal Collection Time: 12/05/24 8:10 AM Result Value Ref Range POC-GLUCOSE 123 (H) 70 - 110 mg/dL Laboratory Scientist [id number] Radiology Radiology Results (last day) Procedure Component Value Units Date/Time XR chest AP portable [[id number]] Collected: 12/04/24 0923 Order Status: Completed Updated: 12/04/24 1435 Narrative: PORTABLE CHEST HISTORY: Acute shortness of breath. COMPARISON: One day prior. FINDINGS: The heart is mildly enlarged in size, stable. The mediastinum is unremarkable. There has been mild interval worsening of the vascular engorgement and pulmonary edema. There is no pneumothorax. Impression: Mild interval worsening of vascular engorgement and pulmonary edema. Images reviewed, interpreted, and dictated by Dr. Haseeb Gil. Transcribed by Regina Villasenor PA-C. Microbiology: Microbiology Results (last 7 days) Procedure Component Value Units Date/Time Anaerobic Culture [[id number]] Collected: 11/30/24 1603 Order Status: Completed Specimen: Peritoneal Fluid from Body Fluid Updated: 12/05/24 0634 Result No Anaerobic growth Narrative: Specimen Description: peritoneal fluid Blood Culture [[id number]] Collected: 11/30/24 0340 Order Status: Completed Specimen: Blood from Arm, Left Updated: 12/05/24 0501 Result No growth in 5 days Blood Culture [[id number]] Collected: 11/30/24 0342 Order Status: Completed Specimen: Blood from Arm, Right Updated: 12/05/24 0501 Result No growth in 5 days Body Fluid Culture + Gram Stain [[id number]] Collected: 11/30/24 1603 Order Status: Completed Specimen: Peritoneal Fluid from Body Fluid Updated: 12/03/24 0907 Result No growth Gram Stain Result No organisms seen No cells seen Narrative: Specimen Description: peritoneal fluid Body Fluid/CSF - Path Review () [[id number]] Collected: 11/30/24 1603 Order Status: Completed Specimen: Peritoneal Fluid from Body Fluid Updated: 12/03/24 0654 SENT TO PATHOLOGY FOR REVIEW Yes Scan Result Mesothelial cells. MD German 12/02/2024 AFB Culture And Stain [[id number]] Collected: 11/30/24 1603 Order Status: Completed Specimen: Peritoneal Fluid from Body Fluid Updated: 12/01/24 1410 AFB Smear No acid fast bacilli seen Narrative: Specimen Description: peritoneal fluid Glucose, body fluid [[id number]] Collected: 11/30/241602 Order Status: Completed Specimen: Body Fluid from Peritoneal Fluid Updated: 12/01/24709 Glucose, Body Fluid 107 mg/dL BODY FLUID TYPE Peritoneal Narrative: This test has been modified from the golf course laborer's instructions and its performance characteristics were determined by the laboratory. The reference intervals and other method performance specifications are unavailable for this test. It is recommended to interpret body fluid concentrations in comparison with the corresponding serum or plasma concentrations and to integrate test results into the clinical context. Protein, body fluid [[id number]] Collected: 11/30/241602 Order Status: Completed Specimen: Body Fluid from Peritoneal Fluid Updated: 12/01/24709 Protein, Fluid 1.9 g/dL BODY FLUID TYPE Peritoneal Narrative: This test has been modified from the golf course laborer's instructions and its performance characteristics were determined by the laboratory. The reference intervals and other method performance specifications are unavailable for this test. It is recommended to interpret body fluid concentrations in comparison with the corresponding serum or plasma concentrations and to integrate test results into the clinical context. Urine Culture [[id number]] Collected: 11/30/24 1135 Order Status: Completed Specimen: Urine, Clean Catch Updated: 12/01/24648 Result Recollect Specimen - 3 or more organisms suggests contamination Body fluid cell count with differential [[id number]] (Abnormal) Collected: 11/30/241602 Order Status: Completed Specimen: Peritoneal Fluid from Body Fluid Updated: 11/30/242048 Appearance Cloudy Color Yellow BODY FLUID TYPE Peritoneal Auto WBC/Nucleated Cells BF 85 /uL Comment: Please refer to specific WBC/Nucleated Cell Count Body Fluid reference ranges below: For Pleural: 0-1000 Peritoneal: 0-1000 Pericardial:0-1000 Synovial: 0-200 Auto RBC BF <3,000 /uL Comment: Please refer to specific RBC Cell Count Body Fluid reference ranges below: Pleural: 0-10,000 Peritoneal: 0-10,000 Pericardial:0-10,000 Synovial:0-30 Narrative: There is normally no readily obtainable pleural, peritoneal and pericardial fluid, hence normal elements for these potential fluids are not defined. DIFFERENTIAL, BODY FLUID [[id number]] Collected: 11/30/241602 Order Status: Completed Specimen: Peritoneal Fluid from Body Fluid Updated: 11/30/242048 Neutrophils Fluid 5 % Lymphocytes Fluid 46 % Unidentified Mononuclear Cells BF 49 % Lactate dehydrogenase (LDH), body fluid [[id number]] Collected: 11/30/24 1603 Order Status: Completed Specimen: Peritoneal Fluid from Body Fluid Updated: 11/30/24 1819 LDH, Fluid 71 U/L BODY FLUID TYPE Peritoneal Narrative: This test has been modified from the golf course laborer's instructions and its performance characteristics were determined by the laboratory. The reference intervals and other method performance specifications are unavailable for this test. It is recommended to interpret body fluid concentrations in comparison with the corresponding serum or plasma concentrations and to integrate test results into the clinical context. Fungus Culture W/ROSA MARIA Or Nimisha Ink [[id number]] Collected: 11/30/24 1603 Order Status: Completed Specimen: Peritoneal Fluid from Body Fluid Updated: 11/30/24 1754 ROSA MARIA Prep No fungal elements seen Narrative: Specimen Description: peritoneal fluid Total Protein, Body Fluid(SENDOUT) [[id number]] Collected: 11/30/24 1603 Order Status: Canceled Specimen: Peritoneal Fluid from Body Fluid Updated: 11/30/24 1634 Glucose Body Fluid(SENDOUT) [[id number]] Collected: 11/30/24 1603 Order Status: Canceled Specimen: Peritoneal Fluid from Body Fluid Updated: 11/30/24 1634 Urine Culture [[id number]] Collected: 11/30/24 1135 Order Status: Canceled Specimen: Urine, Clean Catch Updated: 11/30/24 1206 Normal sized left ventricle. Normal left ventricular wall thickness. Visually estimated ejection fraction 55% +/- 5%. Borderline systolic strain pattern. Increased left atrial pressure (Grade II diastolic dysfunction). Sclerotic aortic valve leaflets. Trivial pericardial effusion measuring 0.3cm. posteriorly ASSESSMENT: Pulmonary Acute hypoxemic respiratory failure Acute pulmonary edema and pulmonary vascular congestion Never smoker GI Decompensated cirrhosis, new diagnosis MELD-NA score = 21 Hyperammonemia - improved S/p paracentesis on 11/30 - 6L removed S/p EGD on 12/01 - duodenal ulcer, no evidence of active bleeding Cardiac Hemodynamically stable New-onset atrial fib with non-sustained runs of v. tach - improved, on Amio gtt Diastolic HFpEF Renal Acute on chronic kidney disease, baseline unknown Hypernatremia Heme Pancytopenia S/p bone marrow biopsy on 12/02 - path pending Neuro Awake, alert Endo DM PLAN: Maintain sat >89%, currently on nasal cannula 3 L. Awake and alert Keep head of bed at 30 degrees and maintain aspiration precautions. Nonsustained V. tach, A-fib with RVR, given IV amiodarone bolus, started on amiodarone drip. EP cardiology was consulted. Echocardiogram: Echo on 11/30 showed ejection fraction 55 to 60%, grade 2 diastolic dysfunction, trivial epicardial effusion. Hemodynamic: Stable Hemodynamic support: Maintain MAP above 65. Antibiotics: On ceftriaxone. Follow up on cultures. Discussed with nephrology they are planning to give diuretics today. Hypernatremia, hyperchloremia, metabolic acidosis, acute kidney injury, possible hepatorenal syndrome, nephrology was consulted. Started on albumin. Continue to hold metformin and lisinopril. Per nephrology there is no PHARMACOMETRICIAN indication at this time. Ultrasound renal on 11/30 showed normal renal ultrasound. Bun/Cr reviewed Monitor renal functions and electrolytes closely. Replace electrolytes per protocol. Maintain serum potassium of 4.0, magnesium of 2.0 and phosphorusof 2.5 and normal latest calcium with appropriate replacement. Monitor I&O. Avoid nephrotoxins. Nutrition: started on diet. GI was consulted. EGD on 12/01 showed duodenal ulcer and small varices. GI recommended to continue pantoprazole twice daily for 8 weeks, repeat EGD in 8 to 12 weeks. Ultrasound liver on 11/30 showed cirrhosis, no focal liver lesion identified, small volume perihepatic ascites. Paracentesis on 11/30 with removal of 6 L On lactulose and rifaximin. Started on bowel Regimen. Hyperglycemia: Target glucose 140-180 mg/dL. SSI, monitor BS. Hold home antidiabetic medications. Pancytopenia, Acute anemia status post blood transfusion on 12/01 and 12/02. Status post bone marrow biopsy on 12/02, pathology still pending. Hematology/oncology consulted. Monitor H&H. Transfuse as needed. Musculoskeletal: Consulted PT/OT. GI prophylaxis: Pantoprazole DVT prophylaxis: SCDs. AM labs and chest x-ray ordered. Code Status: Current Code Status Full code Prognosis: Guarded. At risk for respiratory and cardiovascular complications. Disposition: The patient remain critically ill, would recommend to keep the patein in the ICU. CRITICAL CARE TIME: Cumulative critical care time spent on the patient for the day excluding procedures 34 minutes. Patient seen and examined at bedside. I performed history and physical examination. I reviewed laboratory studies, imaging studies, other diagnostic studies, and inpatient medications. Chest imaging studies visualized and reviewed independent of radiologist. Case discussed with the multidisciplinary team including nurse practitioner, nurse, RT, wire coiner, pharmacist, and case management during multidisciplinary round. I Dr.Hazim Jeramy MD, have personally evaluated the patient and performed a [id number] diagnostic evaluation on this patient; I have Obtained history, performed physical examination, reviewed laboratory studies. I have reviewed images independent of radiologist. I have actively directed the medical care, formulated diagnosis, and the plan of care. Patient requires a high complexity of decision making for assessment. Voice moss bleacher technology ([employer]) is used for dictation of this note and sound-alike words might be erroneously placed despite reviewing the note for accuracy. Errors in dictation may reflect use of voice recognition software and not all errors in moss bleacher may have been detected prior to signing. It may contain errors and words that were not intended to be used. Please contact the provider for errors or clarifications. * Timothy Bai MD - 12/05/2024 8:26 AM EDT Subjective Patient is seen and examined at bedside, no acute overnight events . She is feeling better this morning, her abdominal distention has improved. Review of Systems Constitutional: Positive for fatigue. Respiratory: Negative. Cardiovascular: Positive for leg swelling. Gastrointestinal: Positive for abdominal distention. Musculoskeletal: Negative. Psychiatric/Behavioral: Negative. Objective Last Recorded Vitals Blood pressure 126/59, pulse 84, temperature 98 ??F (36.7 ??C), temperature source Axillary, resp. rate 13, height 1.676 m (5' 6 ), weight 100.7 kg (222 lb 0.1 oz), SpO2 96%. Physical Exam Constitutional: Appearance: She is obese. She is ill-appearing. HENT: Head: Normocephalic. Eyes: Pupils: Pupils are equal, round, and reactive to light. Cardiovascular: Rate and Rhythm: Normal rate and regular rhythm. Pulmonary: Effort: Pulmonary effort is normal. Breath sounds: Normal breath sounds. Abdominal: General: Bowel sounds are normal. There is distension. Palpations: Abdomen is soft. Musculoskeletal: Right lower leg: Edema present. Left lower leg: Edema present. Skin: General: Skin is dry. Coloration: Skin is pale. Neurological: Mental Status: She is alert. Mental status is at baseline. Labs: Results for orders placed or performed during the hospital encounter of 11/30/24 (from the past 24 hours) Glucose, Nova Meter Status: Abnormal Collection Time: 12/04/24 10:52 AM Result Value Ref Range POC-GLUCOSE 136 (H) 70 - 110 mg/dL Laboratory Scientist [id number] Basic Metabolic Panel Status: Abnormal Collection Time: 12/04/24 10:53 AM Result Value Ref Range Sodium 146 (H) 136 - 145 meq/L Potassium 3.6 3.4 - 5.1 meq/L CO2 20 (L) 22 - 29 meq/L Chloride 116 (H) 98 - 112 meq/L Glucose 137 (H) 82 - 115 mg/dL BUN 61.1 (H) 9.8 - 20.1 mg/dL Creatinine 3.38 (H) 0.57 - 1.11 mg/dL BUN/Creatinine 18 8 - 20 Calcium 8.5 8.4 - 10.2 mg/dL Anion Gap 14 (H) 4 - 12 eGFR (mL/min/1.73m2) 15 (L) >=60 mL/min/1.73m2 Osmolality Calc 310.0 mOsm/kg Hemoglobin Status: Abnormal Collection Time: 12/04/24 4:27 PM Result Value Ref Range Hemoglobin 8.9 (L) 11.2 - 15.7 GM/DL Glucose, Nova Meter Status: Abnormal Collection Time: 12/04/24 4:50 PM Result Value Ref Range POC-GLUCOSE 137 (H) 70 - 110 mg/dL Laboratory Scientist [id number] ECG 12 lead Status: None (In process) Collection Time: 12/04/24 8:08 PM Result Value Ref Range SYSTOLIC BLOOD PRESSURE (MCT) 133 mmHg DIASTOLIC BLOOD PRESSURE (MCT) 61 mmHg VENTRICULAR RATE EKG/MIN 85 BPM ATRIAL RATE (MCT) 85 BPM MI Interval 140 ms QRS-INTERVAL (MSEC) 94 ms QT Interval 426 ms QTC Interval 506 ms P [place] 44 degrees R AXIS (MCT) 27 degrees T Wave [place] -27 degrees Bryan Diagnosis Normal sinus rhythm Nonspecific T wave abnormality Abnormal ECG When compared with ECG of 04-DEC-2024 03:25, QT has lengthened Glucose, Nova Meter Status: Abnormal Collection Time: 12/04/24 10:20 PM Result Value Ref Range POC-GLUCOSE 147 (H) 70 - 110 mg/dL Laboratory Scientist [id number] Hemoglobin Status: Abnormal Collection Time: 12/04/24 11:54 PM Result Value Ref Range Hemoglobin 8.7 (L) 11.2 - 15.7 GM/DL CBC - Hemogram (-BKR) Status: Abnormal Collection Time: 12/05/24 3:20 AM Result Value Ref Range WBC 4.2 4.0 - 10.0 K/??L RBC 2.64 (L) 3.93 - 5.22 M/??L Hemoglobin 8.2 (L) 11.2 - 15.7 GM/DL Hematocrit 25.9 (L) 34.1 - 44.9 % MCV 98 (H) 79 - 95 fL MCH 31.1 25.6 - 32.2 pg MCHC 31.7 (L) 32.2 - 35.5 GM/DL RDW 17.1 (H) 11.7 - 14.4 % Platelets 60 (L) 140 - 375 K/CU MM MPV 11.3 9.4 - 12.3 fL Magnesium Status: Normal Collection Time: 12/05/24 3:20 AM Result Value Ref Range Magnesium 2.3 1.6 - 2.6 mg/dL Comprehensive Metabolic Panel Status: Abnormal Collection Time: 12/05/24 3:20 AM Result Value Ref Range Sodium 146 (H) 136 - 145 meq/L Potassium 3.6 3.4 - 5.1 meq/L Chloride 117 (H) 98 - 112 meq/L CO2 20 (L) 22 - 29 meq/L Calcium 8.3 (L) 8.4 - 10.2 mg/dL Glucose 148 (H) 82 - 115 mg/dL BUN 59.4 (H) 9.8 - 20.1 mg/dL Creatinine 3.14 (H) 0.57 - 1.11 mg/dL BUN/Creatinine 19 8 - 20 eGFR (mL/min/1.73m2) 16 (L) >=60 mL/min/1.73m2 Albumin 4.3 3.5 - 5.0 g/dL Alkaline Phosphatase 44 40 - 150 U/L ALT 8 <=34 U/L AST 23 11 - 34 U/L Total Bilirubin 1.2 0.2 - 1.2 mg/dL Protein, Total 6.4 6.4 - 8.3 g/dL Globulin 2.1 (L) 2.5 - 4.1 g/dL Anion Gap 13 (H) 4 - 12 A/G Ratio 2.0 (H) 0.7 - 1.9 Osmolality Calc 310.0 mOsm/kg Ammonia Status: Normal Collection Time: 12/05/24 3:20 AM Result Value Ref Range Ammonia 41 18 - 72 ??mol/L Hemoglobin Status: Abnormal Collection Time: 12/05/24 8:00 AM Result Value Ref Range Hemoglobin 8.2 (L) 11.2 - 15.7 GM/DL XR chest AP portable Narrative: PORTABLE CHEST HISTORY: Acute shortness of breath. COMPARISON: One day prior. FINDINGS: The heart is mildly enlarged in size, stable. The mediastinum is unremarkable. There has been mild interval worsening of the vascular engorgement and pulmonary edema. There is no pneumothorax. Impression: Mild interval worsening of vascular engorgement and pulmonary edema. Images reviewed, interpreted, and dictated by Dr. Haseeb Gil. Transcribed by Regina Villasenor PA-C. Assessment and plan: This is a 64 years old female who was transferred from outside hospital to be evaluated by nephrology for GERMÁN, she was noted to have abdominal distention and bilateral lower extremities edema upon admission. #Nonalcoholic liver cirrhosis with ascites - S/p paracentesis on 11/30 with 6 L removed, fluid cultures are negative, patient is on po rifaximinand lactulose, will monitor CMP daily, GI did EGD on 12/01 that showed : EV Retained food Duodenal ulcer GI recommended : BID PPI x 8 weeks. Repeat EGD in 8-12 weeks to assess varices outside of acute episode. Abx for no more than 5 days for motility benefit in cirrhotic bleeding. Plan: - Will continue IV Protonix twice daily - Will continue lactulose and monitor ammonia level daily - Will continue IV Rocephin for 5 days total #Patient developed A-fib with RVR -Currently on amiodarone drip and will change to po amio, EP cardiology is following, will monitor electrolytes daily and replace per protocol if needed, stopped Cardizem drip -Not requiring any pressors this morning, blood pressure is stable #Anasarca likely secondary to hepatorenal syndrome #GERMÁN -Nephrology input is appreciated, nephrology started bumex and Aldactone yesterday, will avoid nephrotoxic agent and renally dose medications, monitor BMP and electrolytes daily -Creatinine is trending down to 3.14 today -Will continue IV albumin #Diabetes: Holding metformin, continue insulin sliding scale and monitor blood glucose per protocol #Hyperlipidemia: will continue low dose statin since LFTs are normal now, will monitor CMP daily #Pancytopenia: -Hemoglobin is trending down to 8.2 today, patient received 2 units of PRBCs during this hospitalization , will monitor H&H every 8 hours and transfuse for hemoglobin less than 7 - No chemical DVT prophylaxis due to thrombocytopenia - Hematology is consulted and IR did bone marrow biopsy on 12/02 #Vitamin D deficiency: Will continue on p.o. vitamin D supplementation weekly #Will continue mechanical DVT prophylaxis MDM: Labs and images are noted and reviewed, monitor labs and electrolytes daily. Plan as detailed above. Discussed with nursing staff . Discharge disposition: PT/OT is consulted, likely home with home health pending clinical improvement and improvement in creatinine * Deysi Foss MD - 12/04/2024 10:47 AM EDT EP progress note Patient Name: Mary Coronel Admission Date: 11/30/2024 Primary Care Provider: [facility] Find-a-Doc Chief Complaint/Reason for Consult: No chief complaint on file. History of Present Illness: Mary Coronel is a 64 y.o. female, admitted on: 11/30/2024 1:43 AM. presented to [facility] with swollen abdomen, abdominal discomfort and bilateral lower extremity pitting edema. Patient's BUN/creatinine elevated, and patient subsequently transferred to [facility] for hepatorenal syndrome evaluation. Admits to 4 weeks of progressive SOB, FUNK, orthopnea, lower extremit y swelling, abdominal swelling, ataxia issues. States beforementioned symptoms have gotten worse over past week. Also states she has gained 16 pounds over past week. Admitts to chronic RUQ, diffuse abdominal discomfort which is worsened over past week. Reports decreased urine output x 7 days. Pt was admitted with nonalcoholic liver cirrhosis with ascites and underwent paracentesis on 11/30 with 6L removed. EGD revealed a duodenal ulcer and small varices. While on telemetry, pt is having some afib and brief runs of NSVT. Asymptomatic. BP stable. EP consulted for evaluation and management. Medications: Prior to Admission Medications: Medications Prior to Admission Medication Sig Dispense Refill Last Dose/Taking albuterol 90 mcg/actuation inhaler Inhale 1 puff by mouth every 6 (six) hours as needed for wheezing. ammonium lactate (AMLACTIN) 12 % cream Apply 1 g topically as needed for dry skin. aspirin 81 MG chewable tablet Take 1 tablet (81 mg total) by mouth daily. atorvastatin (LIPITOR) 20 MG tablet Take 1 tablet (20 mg total) by mouth nightly. bisoprolol (ZEBETA) 10 MG tablet Take 1 tablet (10 mg total) by mouth 2 (two) times daily. cholecalciferol (VITAMIN D3) 125 mcg (5,000 unit) tablet Take 2 tablets (10,000 Units total) by mouth daily. clopidogreL (PLAVIX) 75 mg tablet Take 1 tablet (75 mg total) by mouth daily Look-alike/Sound-alike medication. colestipoL (COLESTID) 1 gram tablet Take 2 tablets (2 g total) by mouth daily. dicyclomine (BENTYL) 10 MG capsule Take 1 capsule (10 mg total) by mouth 2 (two) times daily. furosemide (LASIX) 40 MG tablet Take 1 tablet (40 mg total) by mouth 2 (two) times daily. gabapentin (NEURONTIN) 800 MG tablet Take 1 tablet (800 mg total) by mouth 3 (three) times daily. Max Daily Amount: 2,400 mg HYDROcodone-acetaminophen (NORCO) 10-325 mg per tablet Take 1 tablet by mouth every 6 (six) hours as needed for pain. Max Daily Amount: 4 tablets hydrOXYzine pamoate (VISTARIL) 50 MG capsule Take 1 capsule (50 mg total) by mouth every night as needed for itching (sleep) Look-alike/Sound-alike medication. insulin aspart U-100 (NovoLOG) 100 unit/mL (3 mL) inpn Inject under the skin 4 (four) times daily before meals and nightly. lisinopriL (ZESTRIL) 10 MG tablet Take 1 tablet (10 mg total) by mouth 2 (two) times daily. metFORMIN (GLUCOPHAGE) 1000 MG tablet Take 1 tablet (1,000 mg total) by mouth 2 (two) times daily with breakfast and dinner Look-alike/Sound-alike medication. tirzepatide 7.5 mg/0.5 mL pnij Inject 7.5 mg under the skin every 7 days. triamcinolone (KENALOG) 0.1 % topical cream Apply 0.1 Applications topically daily to affected area.. Scheduled Medications: albumin human 25% 25 g intravenous Q6H [facility] amiodarone 150 mg intravenous Once atorvastatin 20 mg oral Every Night 20 mg at 12/03/24 2134 cefTRIAXone 2 g intravenous Q24H IVPB Stopped at 12/03/24 2205 ergocalciferol 50,000 Units oral Q7 Days 50,000 Units at 11/30/24 1459 gabapentin 300 mg oral TID 300 mg at 12/04/24 0739 insulin lispro 0-18 Units subcutaneous 4x Daily AC 3 Units at 12/04/24 0704 lactulose 10 g oral TID 10 g at 12/04/24 0738 pantoprazole 40 mg intravenous BID 40 mg at 12/04/24 0739 rifAXIMin 550 mg oral BID 550 mg at 12/04/24 0739 Current Infusions: Current Facility-Administered Medications Medication Dose Route Frequency Provider Last Rate Last Admin acetaminophen (TYLENOL) tablet 500 mg 500 mg oral Q4H PRN Huey Hurtado MD albumin human 25 % IV 25 g 25 g intravenous Q6H [facility] Timothy Bai MD albuterol 2.5 mg /3 mL (0.083 %) nebulizer solution 2.5 mg 2.5 mg nebulization Q6H PRN Albert Garcia MD amiodarone bolus from bag 150 mg 150 mg intravenous Once Deysi Foss MD And amiodarone (NEXTERONE) 450 mg in dextrose 5 % 250 mL infusion (premix) 0.5 mg/min intravenous Continuous Deysi Foss MD 16.7 mL/hr at 12/04/24 0800 0.5 mg/min at 12/04/24 0800 ammonium lactate (LAC-HYDRIN) lotion 12% topical PRN Huey Hurtado MD atorvastatin (LIPITOR) tablet 20 mg 20 mg oral Every Night Huey Hurtado MD 20 mg at 12/03/242133 benzocaine-menthoL (CEPACOL) lozenge 1 lozenge 1 lozenge buccal Q2H PRN Timothy Bai MD cefTRIAXone (ROCEPHIN) 2 g in sodium chloride 0.9 % (NS) 50 mL MELIDA IVPB 2 g intravenous Q24H MD Barney IVPB Stopped at 12/03/24 2205 dextrose 50% (D50W) injection 25 g 25 g intravenous Q15 Min PRN Huey Hurtado MD [Held by provider] dilTIAZem 100 mg in sodium chloride 0.9 % (NS) MBP 100 mL infusion 2-15 mg/hr intravenous Continuous Timothy Bai MD Stopped at 12/04/24 1039 ergocalciferol (DRISDOL) capsule 50,000 Units 50,000 Units oral Q7 Days Timothy Bai MD 50,000 Units at 11/30/24 1459 gabapentin (NEURONTIN) capsule 300 mg 300 mg oral TID Alejandre MD Rajeev 300 mg at 12/04/24 0739 glucagon injection 1 mg 1 mg intraMUSCULAR Q15 Min PRN Huey Hurtado MD glucose chew tab 16 g 16 g oral Q15 Min PRN Huey Hurtado MD hydrALAZINE (APRESOLINE) injection 10 mg 10 mg intravenous Q6H PRN Huey Hurtado MD 10 mg at 349 insulin lispro (HUMALOG, ADMELOG) injection 0-18 Units 0-18 Units subcutaneous 4x Daily AC Huey Hurtado MD 3 Units at 12/04/24 0704 lactulose (CHRONULAC) 10 gram/15 mL solution 10 g 10 g oral TID Timothy Bai MD 10 g at 12/04/24 0738 melatonin tablet 3 mg 3 mg oral Every Night PRN Huey Hurtado MD ondansetron (ZOFRAN-ODT) disintegrating tablet 4 mg 4 mg oral Q8H PRN Huey Hurtado MD Or ondansetron (ZOFRAN) injection 4 mg 4 mg intravenous Q8H PRN Huey Hurtado MD pantoprazole (PROTONIX) injection 40 mg 40 mg intravenous BID Timothy Bai MD 40 mg at 12/04/24 0739 [Held by provider] phenylephrine (SILVIA-SYNEPHRINE) 40 mg in sodium chloride 0.9 % (NS) 250 mL infusion 20-260 mcg/min intravenous Titrated Timothy Bai MD Stopped at 12/04/24 1039 prochlorperazine (COMPAZINE) injection 10 mg 10 mg intravenous Q6H PRN Huey Hurtado MD rifAXIMin (XIFAXAN) tablet 550 mg 550 mg oral BID Destiney Llanes APRN 550 mg at 12/04/24 0739 sodium chloride 0.9 % infusion 20 mL/hr intravenous Once Denilson Hodgson, sodium chloride flush 10 mL 10 mL intravenous PRN Huey Hurtado MD More meds No current facility-administered medications on file prior to encounter. Current Outpatient Medications on File Prior to Encounter Medication Sig Dispense Refill albuterol 90 mcg/actuation inhaler Inhale 1 puff by mouth every 6 (six) hours as needed for wheezing. ammonium lactate (AMLACTIN) 12 % cream Apply 1 g topically as needed for dry skin. aspirin 81 MG chewable tablet Take 1 tablet (81 mg total) by mouth daily. atorvastatin (LIPITOR) 20 MG tablet Take 1 tablet (20 mg total) by mouth nightly. bisoprolol (ZEBETA) 10 MG tablet Take 1 tablet (10 mg total) by mouth 2 (two) times daily. cholecalciferol (VITAMIN D3) 125 mcg (5,000 unit) tablet Take 2 tablets (10,000 Units total) by mouth daily. clopidogreL (PLAVIX) 75 mg tablet Take 1 tablet (75 mg total) by mouth daily Look-alike/Sound-alike medication. colestipoL (COLESTID) 1 gram tablet Take 2 tablets (2 g total) by mouth daily. dicyclomine (BENTYL) 10 MG capsule Take 1 capsule (10 mg total) by mouth 2 (two) times daily. furosemide (LASIX) 40 MG tablet Take 1 tablet (40 mg total) by mouth 2 (two) times daily. gabapentin (NEURONTIN) 800 MG tablet Take 1 tablet (800 mg total) by mouth 3 (three) times daily. Max Daily Amount: 2,400 mg HYDROcodone-acetaminophen (NORCO) 10-325 mg per tablet Take 1 tablet by mouth every 6 (six) hours as needed for pain. Max Daily Amount: 4 tablets hydrOXYzine pamoate (VISTARIL) 50 MG capsule Take 1 capsule (50 mg total) by mouth every night as needed for itching (sleep) Look-alike/Sound-alike medication. insulin aspart U-100 (NovoLOG) 100 unit/mL (3 mL) inpn Inject under the skin 4 (four) times daily before meals and nightly. lisinopriL (ZESTRIL) 10 MG tablet Take 1 tablet (10 mg total) by mouth 2 (two) times daily. metFORMIN (GLUCOPHAGE) 1000 MG tablet Take 1 tablet (1,000 mg total) by mouth 2 (two) times daily with breakfast and dinner Look-alike/Sound-alike medication. tirzepatide 7.5 mg/0.5 mL pnij Inject 7.5 mg under the skin every 7 days. triamcinolone (KENALOG) 0.1 % topical cream Apply 0.1 Applications topically daily to affected area.. Problem list and diagnosis Patient Active Problem List Diagnosis Anasarca Melena 1. Melena Case request operating room: ESOPHAGOGASTRODUODENOSCOPY (EGD) Case request operating room: ESOPHAGOGASTRODUODENOSCOPY (EGD) Lactate dehydrogenase (LDH), body fluid Lactate dehydrogenase (LDH), body fluid Body fluid cell count with differential Body fluid cell count with differential Body Fluid Culture + Gram Stain Body Fluid Culture + Gram Stain Anaerobic Culture Anaerobic Culture Fungus Culture W/ROSA MARIA Or Nimisha Ink Fungus Culture W/ROSA MARIA Or Nimisha Ink AFB Culture And Stain AFB Culture And Stain [facility] Non-Optometric Assistant Cytology [facility] Non-Optometric Assistant Cytology DIFFERENTIAL, BODY FLUID DIFFERENTIAL, BODY FLUID Body Fluid/CSF - Path Review () Body Fluid/CSF - Path Review () [facility] BONE MARROW SMEAR, ASPIRATION, AND STAIN [facility] BONE MARROW SMEAR, ASPIRATION, AND STAIN CANCELED: Glucose Body Fluid(SENDOUT) CANCELED: Glucose Body Fluid(SENDOUT) CANCELED: Total Protein, Body Fluid(SENDOUT) CANCELED: Total Protein, Body Fluid(SENDOUT) Past Medical History: Past Medical History: Diagnosis Date Cirrhosis, non-alcoholic (HCC) Diabetes mellitus (HCC) Hypertension Past Surgical History: Past Surgical History: Procedure Laterality Date ESOPHAGOGASTRODUODENOSCOPY (EGD),REMOVAL FOREIGN BODY N/A 12/01/2024 Procedure: EGD, WITH FOREIGN BODY REMOVAL; Surgeon: Scott Daley MD; [facility]; Service: Gastroenterology; Laterality: N/A; Allergies: No Known Allergies Social History: Tobacco Use Smoking status: Never Passive exposure: Never Smokeless tobacco: Never Substance Use Topics Alcohol use: Never Drug use: Never Marital Status: Family History: No family history on file. Review of Systems: Constitutional: Negative except as documented in history of present illness. Eye: Negative except as documented in history of present illness. Ear/Nose/Mouth/Throat: Negative except as documented in history of present illness. Respiratory: Negative except as documented in history of present illness. Cardiovascular: Negative except as documented in history of present illness. Gastrointestinal: Negative except as documented in history of present illness. Genitourinary: Negative except as documented in history of present illness. Hematology/Lymphatics: Negative except as documented in history of present illness. Endocrine: Negative except as documented in history of present illness. Immunologic: Negative except as documented in history of present illness. Musculoskeletal: Negative except as documented in history of present illness. Integumentary: Negative except as documented in history of present illness. Neurologic: Negative except as documented in history of present illness. Psychiatric: Negative except as documented in history of present illness. Physical Exam: Blood pressure (!) 140/65, pulse 86, temperature 98.2 ??F (36.8 ??C), temperature source Axillary, resp. rate 27, height 1.676 m (5' 6 ), weight 102.3 kg (225 lb 8 oz), SpO2 95%. General: Alert and oriented. Ill-appearing Eye: Pupils are equal, round and reactive to light. HENT: Normocephalic. Neck: Supple, Non-tender, No carotid bruit, No jugular venous distention. Respiratory: Decreased breath sound bilateral, Respirations are non-labored. Cardiovascular: regular rhythm, No murmur Gastrointestinal: Soft, Non-tender, slightly distended, Normal bowel sounds. Musculoskeletal: Normal range of motion. Integumentary: Warm, Dry, [place]. Neurologic: No obvious focal deficit Psychiatric: Cooperative, Appropriate mood & affect. Labs, Imaging, and Other Studies: Echo Results (last 7 days) Procedure Component Value Units Date/Time ECHO COMPLETE (DOPPLER / COLOR) W OR WO CONTRAST [[id number]] Collected: 11/30/24724 Order Status: Completed Updated: 11/30/24 1046 Narrative: TRANSTHORACIC ECHOCARDIOGRAPHY REPORT Demographics Patient Name: RIN JONES : 1960 Age: 64 year(s) Corporate ID Number: [id number] Gender Female Container Repairer: Giovanna Rock Height: [address] Referring Physician: HUEY HURTADO Weight: 225 pounds Interpreting JESSICA RAYMOND MD BMI: 35.24 kg/m^2 Physician: Date of Service: 11/30/2024 Blood Pressure: 118/59 mmHg Room Number: 579 Type of Study: TTE procedure: ECHO COMPLETE (DOPPLER / COLOR) W OR WO CONTRAST. Patient Status: Routine IP [facility] Adequate [facility] History/Tech Notes: Indication: shortness of breath R06.02 Impression: ######################################## Normal sized left ventricle. Normal left ventricular wall thickness. Visually estimated ejection fraction 55% +/- 5%. Borderline systolic strain pattern. Increased left atrial pressure (Grade II diastolic dysfunction). Sclerotic aortic valve leaflets. Trivial pericardial effusion measuring 0.3cm. posteriorly. ######################################## Measurements Summary: LVEDd: 5.33 cm LVESd: 3.64 cm IVSEd: 0.88 cm AO Root:2.7 cm LVPWd: 0.87 cm Contractility Score Normal Left Ventricular contractility was noted. LV regional wall motion: (0-Not visualized 1-Normal 2-Hypokinesis 3-Akinesis 4-Dyskinesis 5-Aneurysm) Left Ventricle Peak E-wave: 1.31 Peak A-wave: 1.35 m/s E/A ratio: 0.97 m/s Volume [id number] LV length: 8.51 cm ml Volume [id number] ml LVOT diameter: 1.79 cm Normal sized left ventricle. Normal left ventricular wall thickness. Visually estimated ejection fraction 55% +/- 5%. Borderline systolic strain pattern. Increased left atrial pressure (Grade II diastolic dysfunction). No left ventricular masses or thrombi. Right Ventricle Diastolic dimension: 3.92 RV systolic pressure: 28.12 mmHg cm Normal sized right ventricle. Normal TAPSE c/w normal right ventricular function Left Atrium LA dimension: 4 cm LA volume:83.13 ml LA/Aorta: 1.48 Abnormal left atrial volume index 39 ml/m^2. Intact atrial septum. No atrial mass or thrombus. Right Atrium Normal sized right atrium. Intact atrial septum. No atrial mass or thrombus. Mitral Valve Deceleration time: 261.56 msec Thickened mitral valve leaflets. Mild (1+) mitral regurgitation. No mitral stenosis. No masses or vegetations seen. Aortic Valve AV VTI: 53.02 Area continuity: 1.13 Peak velocity: 2.38 m/s cm cm^2 Peak gradient: 22.63 LVOT VTI: 23.85 Mean velocity: 1.76 mmHg cm m/s Mean gradient: 13.56 mmHg Sclerotic aortic valve leaflets. Mildly thickend free edges of the aortic valve leaflets. No aortic regurgitation. No aortic stenosis. No masses or vegetations seen. Tricuspid Valve TR velocity: 2.51 m/s TR gradient: 25.53686 mmHg Estimated RAP: 3 mmHg RVSP: 28.12 mmHg Structurally normal tricuspid valve. Trace tricuspid valve regurgitation. No tricuspid stenosis. No masses or vegetations seen. Pulmonic Valve Acceleration time: 110.37 msec PASP: 28.12 mmHg Structurally normal pulmonic valve. Trace pulmonary valve regurgitation. No pulmonic stenosis. No masses or vegetations seen. Great Vessels Aorta Aortic Root: 2.7 cm LVOT Diameter: 1.79 cm Visualized thoracic aorta is normal. Normal aortic root. No evidence of dissection. Normal IVC with appropriate collapse. Pericardium / Pleura Trivial pericardial effusion measuring 0.3cm. posteriorly. Other Ascites noted in subcostal imaging. Sodium Date Value Ref Range Status 12/04/2024 143 136 - 145 meq/L Final Potassium Date Value Ref Range Status 12/04/2024 3.7 3.4 - 5.1 meq/L Final Chloride Date Value Ref Range Status 12/04/2024 115 (H) 98 - 112 meq/L Final CO2 Date Value Ref Range Status 12/04/2024 20 (L) 22 - 29 meq/L Final BUN Date Value Ref Range Status 12/04/2024 58.6 (H) 9.8 - 20.1 mg/dL Final Creatinine Date Value Ref Range Status 12/04/2024 3.43 (H) 0.57 - 1.11 mg/dL Final eGFR (mL/min/1.73m2) Date Value Ref Range Status 12/04/2024 15 (L) >=60 mL/min/1.73m2 Final Calcium Date Value Ref Range Status 12/04/2024 8.3 (L) 8.4 - 10.2 mg/dL Final WBC Date Value Ref Range Status 12/04/2024 4.1 4.0 - 10.0 K/??L Final 12/04/2024 3.2 (L) 4.0 - 10.0 K/??L Final 12/03/2024 2.8 (L) 4.0 - 10.0 K/??L Final RBC Date Value Ref Range Status 12/04/2024 2.90 (L) 3.93 - 5.22 M/??L Final 12/04/2024 2.88 (L) 3.93 - 5.22 M/??L Final 12/03/2024 2.68 (L) 3.93 - 5.22 M/??L Final Hemoglobin Date Value Ref Range Status 12/04/2024 9.0 (L) 11.2 - 15.7 GM/DL Final 12/04/2024 8.8 (L) 11.2 - 15.7 GM/DL Final 12/04/2024 8.9 (L) 11.2 - 15.7 GM/DL Final Hematocrit Date Value Ref Range Status 12/04/2024 29.0 (L) 34.1 - 44.9 % Final 12/04/2024 28.4 (L) 34.1 - 44.9 % Final 12/03/2024 26.1 (L) 34.1 - 44.9 % Final Platelets Date Value Ref Range Status 12/04/2024 65 (L) 140 - 375 K/CU MM Final 12/04/2024 61 (L) 140 - 375 K/CU MM Final 12/03/2024 55 (L) 140 - 375 K/CU MM Final No results found for: TSH , MAGNESIUM .[facility] Lab Results Component Value Date K 3.7 12/04/2024 Lab Results Component Value Date CREATININE 3.43 (H) 12/04/2024 No results found for: TSH No results found for: MAGNESIUM AST Date Value Ref Range Status 12/04/2024 21 11 - 34 U/L Final Comment: AST2 reagent used for testing does not contain P5P supplementation and therefore may miss AST elevations in patients with B6 deficiency. This population may be as high as 10% in the [place], with risk factors including malabsorption, drug interactions, and alcoholic hepatitis. ALT Date Value Ref Range Status 12/04/2024 11 <=34 U/L Final Comment: ALT2 reagent used for testing does not contain P5P supplementation and therefore may miss ALT elevations in patients with B6 deficiency. This population may be as high as 10% in the [place], with risk factors including malabsorption, drug interactions, and alcoholic hepatitis. Echo Results (last 7 days) Procedure Component Value Units Date/Time ECHO COMPLETE (DOPPLER / COLOR) W OR WO CONTRAST [[id number]] Collected: 11/30/2425 Order Status: Completed Updated: 11/30/24 1046 Narrative: TRANSTHORACIC ECHOCARDIOGRAPHY REPORT Demographics Patient Name: RIN JONES : 1960 Age: 64 year(s) Corporate ID Number: [id number] Gender Female Container Repairer: Giovanna Rock Height: 67 inches [facility] Referring Physician: HUEY HURTADO Weight: 225 pounds Interpreting JESSICA RAYMOND MD BMI: 35.24 kg/m^2 Physician: Date of Service: 11/30/2024 Blood Pressure: 118/59 mmHg Room Number: 579 Type of Study: TTE procedure: ECHO COMPLETE (DOPPLER / COLOR) W OR WO CONTRAST. Patient Status: Routine IP Study Location: [facility] Quality: Adequate visualization History/Tech Notes: Indication: shortness of breath R06.02 Impression: ######################################## Normal sized left ventricle. Normal left ventricular wall thickness. Visually estimated ejection fraction 55% +/- 5%. Borderline systolic strain pattern. Increased left atrial pressure (Grade II diastolic dysfunction). Sclerotic aortic valve leaflets. Trivial pericardial effusion measuring 0.3cm. posteriorly. ######################################## Measurements Summary: LVEDd: 5.33 cm LVESd: 3.64 cm IVSEd: 0.88 cm AO Root:2.7 cm LVPWd: 0.87 cm Contractility Score Normal Left Ventricular contractility was noted. LV regional wall motion: (0-Not visualized 1-Normal 2-Hypokinesis 3-Akinesis 4-Dyskinesis 5-Aneurysm) Left Ventricle Peak E-wave: 1.31 Peak A-wave: 1.35 m/s E/A ratio: 0.97 m/s Volume [id number] LV length: 8.51 cm ml Volume [id number] ml LVOT diameter: 1.79 cm Normal sized left ventricle. Normal left ventricular wall thickness. Visually estimated ejection fraction 55% +/- 5%. Borderline systolic strain pattern. Increased left atrial pressure (Grade II diastolic dysfunction). No left ventricular masses or thrombi. Right Ventricle Diastolic dimension: 3.92 RV systolic pressure: 28.12 mmHg cm Normal sized right ventricle. Normal TAPSE c/w normal right ventricular function Left Atrium LA dimension: 4 cm LA volume:83.13 ml LA/Aorta: 1.48 Abnormal left atrial volume index 39 ml/m^2. Intact atrial septum. No atrial mass or thrombus. Right Atrium Normal sized right atrium. Intact atrial septum. No atrial mass or thrombus. Mitral Valve Deceleration time: 261.56 msec Thickened mitral valve leaflets. Mild (1+) mitral regurgitation. No mitral stenosis. No masses or vegetations seen. Aortic Valve AV VTI: 53.02 Area continuity: 1.13 Peak velocity: 2.38 m/s cm cm^2 Peak gradient: 22.63 LVOT VTI: 23.85 Mean velocity: 1.76 mmHg cm m/s Mean gradient: 13.56 mmHg Sclerotic aortic valve leaflets. Mildly thickend free edges of the aortic valve leaflets. No aortic regurgitation. No aortic stenosis. No masses or vegetations seen. Tricuspid Valve TR velocity: 2.51 m/s TR gradient: 25.33460 mmHg Estimated RAP: 3 mmHg RVSP: 28.12 mmHg Structurally normal tricuspid valve. Trace tricuspid valve regurgitation. No tricuspid stenosis. No masses or vegetations seen. Pulmonic Valve Acceleration time: 110.37 msec PASP: 28.12 mmHg Structurally normal pulmonic valve. Trace pulmonary valve regurgitation. No pulmonic stenosis. No masses or vegetations seen. Great Vessels Aorta Aortic Root: 2.7 cm LVOT Diameter: 1.79 cm Visualized thoracic aorta is normal. Normal aortic root. No evidence of dissection. Normal IVC with appropriate collapse. Pericardium / Pleura Trivial pericardial effusion measuring 0.3cm. posteriorly. Other Ascites noted in subcostal imaging. Assessment and Plan: *Paroxysmal Atrial Fib [id number] of 2 also have some wide-complex tachycardia aberrancy versus nonsustained VT longest about 10 beats echocardiogram showed normal EF in November 2024 patient seems asymptomatic *Non-alcoholic Liver Cirrhosis decompensated with ascites status post paracentesis 6 L removed on 11/30/2024 also underwent an EGD that shows duodenal ulcer but no evidence of active bleeding *CAD *Diabetes mellitus *HTN *HLD *pancytopenia *GERMÁN current GFR 15. Plan: 12/04/2024 Labs and telemetry reviewed. Patient had no arrhythmia overnight. Antiarrhythmic logan we are limited with kidney failure. Will do low-dose of amiodarone for now g even though she has some liver failure. Will use low-dose and monitor liver enzymes. 12/03/2024 Labs and telemetry reviewed. Keep electrolytes within normal limit. Patient received a bolus of amiodarone that converted her. If further arrhythmia can always do bolus drip of amiodarone however concern is due to liver function. Further recommendations pending testing results, clinical course, and response to therapy. * Timothy Bai MD - 12/04/2024 9:35 AM EDT Subjective Patient is seen and examined at bedside, no acute overnight events . Feeling better this morning, discussed with daughter at bedside. Review of Systems Constitutional: Negative. Respiratory: Negative. Cardiovascular: Negative. Gastrointestinal: Positive for abdominal distention. Musculoskeletal: Negative. Objective Last Recorded Vitals Blood pressure (!) 140/65, pulse 86, temperature 98.2 ??F (36.8 ??C), temperature source Axillary, resp. rate 27, height 1.676 m (5' 6 ), weight 102.3 kg (225 lb 8 oz), SpO2 95%. Physical Exam Constitutional: Appearance: She is obese. She is ill-appearing. HENT: Head: Normocephalic. Eyes: Pupils: Pupils are equal, round, and reactive to light. Cardiovascular: Rate and Rhythm: Normal rate and regular rhythm. Pulmonary: Effort: Pulmonary effort is normal. Breath sounds: Normal breath sounds. Abdominal: General: Bowel sounds are normal. There is distension. Palpations: Abdomen is soft. Musculoskeletal: Right lower leg: Edema present. Left lower leg: Edema present. Skin: General: Skin is dry. Coloration: Skin is pale. Neurological: Mental Status: She is alert. Mental status is at baseline. Labs: Results for orders placed or performed during the hospital encounter of 11/30/24 (from the past 24 hours) ECG 12 lead Status: None Collection Time: 12/03/24 10:39 AM Result Value Ref Range VENTRICULAR RATE EKG/MIN 97 BPM ATRIAL RATE (MCT) 97 BPM MI Interval 150 ms QRS-INTERVAL (MSEC) 88 ms QT Interval 362 ms QTC Interval 459 ms P [place] 40 degrees R AXIS (MCT) 8 degrees T Wave [place] -8 degrees Bryan Diagnosis Normal sinus rhythm Normal ECG No previous ECGs available Confirmed by DEYSI FOSS M.D. ([id number]) on 12/03/2024 5:59:01 PM Glucose, Nova Meter Status: Abnormal Collection Time: 12/03/24 10:45 AM Result Value Ref Range POC-GLUCOSE 156 (H) 70 - 110 mg/dL Laboratory Scientist [id number] ECG 12 lead Status: None Collection Time: 12/03/24 2:16 PM Result Value Ref Range VENTRICULAR RATE EKG/MIN 136 BPM ATRIAL RATE (MCT) 73 BPM QRS-INTERVAL (MSEC) 88 ms QT Interval 304 ms QTC Interval 457 ms R AXIS (MCT) -11 degrees T Wave [place] -58 degrees Bryan Diagnosis Atrial fibrillation with rapid ventricular response Possible Anterolateral infarct , age undetermined Possible abberancy Confirmed by DEYSI FOSS M.D. ([id number]) on 12/03/2024 5:58:45 PM Glucose, Nova Meter Status: Abnormal Collection Time: 12/03/24 5:19 PM Result Value Ref Range POC-GLUCOSE 146 (H) 70 - 110 mg/dL Laboratory Scientist [id number] Glucose, Nova Meter Status: Abnormal Collection Time: 12/03/24 9:41 PM Result Value Ref Range POC-GLUCOSE 146 (H) 70 - 110 mg/dL Laboratory Scientist [id number] Hemoglobin Status: Abnormal Collection Time: 12/04/24 1:04 AM Result Value Ref Range Hemoglobin 9.0 (L) 11.2 - 15.7 GM/DL ECG 12 lead Status: None (In process) Collection Time: 12/04/24 3:25 AM Result Value Ref Range SYSTOLIC BLOOD PRESSURE (MCT) 165 mmHg DIASTOLIC BLOOD PRESSURE (MCT) 77 mmHg VENTRICULAR RATE EKG/MIN 80 BPM ATRIAL RATE (MCT) 80 BPM MI Interval 154 ms QRS-INTERVAL (MSEC) 76 ms QT Interval 380 ms QTC Interval 438 ms P [place] 47 degrees R AXIS (MCT) 44 degrees T Wave [place] -30 degrees Bryan Diagnosis Normal sinus rhythm Low voltage QRS Nonspecific T wave abnormality Abnormal ECG When compared with ECG of 03-DEC-2024 14:16, Sinus rhythm has replaced Atrial fibrillation Vent. rate has decreased BY 56 BPM Nonspecific T wave abnormality now evident in Anterior leads Magnesium Status: Normal Collection Time: 12/04/24 3:34 AM Result Value Ref Range Magnesium 2.5 1.6 - 2.6 mg/dL Comprehensive Metabolic Panel Status: Abnormal Collection Time: 12/04/24 3:34 AM Result Value Ref Range Sodium 143 136 - 145 meq/L Potassium 3.7 3.4 - 5.1 meq/L Chloride 115 (H) 98 - 112 meq/L CO2 20 (L) 22 - 29 meq/L Calcium 8.3 (L) 8.4 - 10.2 mg/dL Glucose 203 (H) 82 - 115 mg/dL BUN 58.6 (H) 9.8 - 20.1 mg/dL Creatinine 3.43 (H) 0.57 - 1.11 mg/dL BUN/Creatinine 17 8 - 20 eGFR (mL/min/1.73m2) 15 (L) >=60 mL/min/1.73m2 Albumin 4.2 3.5 - 5.0 g/dL Alkaline Phosphatase 47 40 - 150 U/L ALT 11 <=34 U/L AST 21 11 - 34 U/L Total Bilirubin 1.1 0.2 - 1.2 mg/dL Protein, Total 6.7 6.4 - 8.3 g/dL Globulin 2.5 2.5 - 4.1 g/dL Anion Gap 12 4 - 12 A/G Ratio 1.7 0.7 - 1.9 Osmolality Calc 307.2 mOsm/kg Phosphorus Status: Normal Collection Time: 12/04/24 3:34 AM Result Value Ref Range Phosphorus 4.2 2.5 - 4.5 mg/dL Ammonia Status: Normal Collection Time: 12/04/24 3:35 AM Result Value Ref Range Ammonia 30 18 - 72 ??mol/L CBC with automated diff Status: Abnormal Collection Time: 12/04/24 3:35 AM Result Value Ref Range WBC 3.2 (L) 4.0 - 10.0 K/??L RBC 2.88 (L) 3.93 - 5.22 M/??L Hemoglobin 8.9 (L) 11.2 - 15.7 GM/DL Hematocrit 28.4 (L) 34.1 - 44.9 % MCV 99 (H) 79 - 95 fL MCH 30.9 25.6 - 32.2 pg MCHC 31.3 (L) 32.2 - 35.5 GM/DL RDW 17.4 (H) 11.7 - 14.4 % Platelets 61 (L) 140 - 375 K/CU MM MPV 11.1 9.4 - 12.3 fL % Neutros 80 (H) 34 - 71 % % Lymphs 12 (L) 19 - 52 % % Monos 8 5 - 13 % % Eos 0 (L) 1 - 6 % % Baso 0 0 - 1 % NRBC Absolute <0.01 0 - 0.012 K/ul # Neutros 2.58 1.56 - 6.13 K/??L # Lymphs 0.39 (L) 1.18 - 3.74 K/??L # Monos 0.25 0.24 - 0.86 K/??L # Eos <0.03 (L) 0.04 - 0.36 K/ L # Baso <0.03 0.01 - 0.08 K/ L Immature Granulocytes-Relative 0.30 0.01 - 0.43 % # IG <0.03 0.00 - 0.03 K/uL Glucose, Nova Meter Status: Abnormal Collection Time: 12/04/24 6:13 AM Result Value Ref Range POC-GLUCOSE 155 (H) 70 - 110 mg/dL Laboratory Scientist [id number] Blood gas, arterial Status: Abnormal Collection Time: 12/04/24 6:34 AM Result Value Ref Range pH, Arterial 7.29 (L) 7.35 - 7.45 pCO2, Arterial 43 35 - 45 mm Hg pO2, Arterial 106 (H) 80 - 100 mm Hg HCO3, Arterial 21 20 - 26 mmol/L Base Excess, Arterial -5.2 (L) -2.0 - 2.0 mmol/L O2 Sat, Arterial 98.8 95.0 - 100.0 % CTO2 ARTERIAL 11.9 mmol/L THB ARTERIAL 8.6 (L) 12.0 - 18.0 g/dL [facility] SITE Right Brachial Arterial Puncture Yes Blood Gas O2 Delivery Device Cannula Oxygen Flow Rate 3 Blood Gas PT Temperature C 37.0 Sen's Test Not Applicable Critical Values Notification Critical Blood gas called to DAYANARA MATIAS . Results acknowledged/read back to [id number] and confirmed on 12/04/2024 07:09 ABG Number of Draw Attempts 1 FIO2 Blood Gas Temperature Corrected Results No No Hemoglobin Status: Abnormal Collection Time: 12/04/24 8:15 AM Result Value Ref Range Hemoglobin 9.0 (L) 11.2 - 15.7 GM/DL XR chest AP portable Narrative: PORTABLE CHEST HISTORY: Acute shortness of breath. COMPARISON: One day prior. FINDINGS: The heart is mildly enlarged in size, stable. The mediastinum is unremarkable. There has been mild interval worsening of the vascular engorgement and pulmonary edema. There is no pneumothorax. Impression: Mild interval worsening of vascular engorgement and pulmonary edema. Images reviewed, interpreted, and dictated by Dr. Haseeb Gil. Transcribed by Regina Villasenor PA-C. Assessment and plan: This is a 64 years old female who was transferred from outside hospital to be evaluated by nephrology for GERMÁN, she was noted to have abdominal distention and bilateral lower extremities edema upon admission. #Nonalcoholic liver cirrhosis with ascites - S/p paracentesis on 11/30 with 6 L removed, fluid cultures are negative, patient is on po rifaximinand lactulose, will monitor CMP daily, GI did EGD on 12/01 that showed : EV Retained food Duodenal ulcer GI recommended : BID PPI x 8 weeks. Repeat EGD in 8-12 weeks to assess varices outside of acute episode. Abx for no more than 5 days for motility benefit in cirrhotic bleeding. Plan: - Will continue IV Protonix twice daily - Will continue lactulose and monitor ammonia level daily - Will continue IV Rocephin for 5 days total for SBP prophylaxis #Patient developed A-fib with RVR -Currently on amiodarone drip and will change to po amio, EP cardiology is following, will monitor electrolytes daily and replace per protocol if needed, now in normal sinus rhythm, will stop Cardizem drip -Not requiring any pressors this morning, blood pressure is stable #Anasarca likely secondary to hepatorenal syndrome #GERMÁN -Nephrology input is appreciated, nephrology started bumex and Aldactone today, will avoid nephrotoxic agent and renally dose medications, monitor BMP and electrolytes daily -Creatinine is trending down to 3.43 today -Will continue IV albumin #Diabetes: Holding metformin, continue insulin sliding scale and monitor blood glucose per protocol #Hyperlipidemia: will resume low dose statin since LFTs are normal today, will monitor CMP daily #Pancytopenia: -Hemoglobin is trending up to 9 today, patient received 2 units of PRBCs during this hospitalization , will monitor H&H every 8 hours and transfuse for hemoglobin less than 7 - No chemical DVT prophylaxis due to thrombocytopenia - Hematology is consulted and IR did bone marrow biopsy on 12/02 #Vitamin D deficiency: Will continue on p.o. vitamin D supplementation weekly #Will continue mechanical DVT prophylaxis MDM: Labs and images are noted and reviewed, monitor labs and electrolytes daily. Plan as detailed above. Discussed with nursing staff . Discharge disposition: PT/OT is consulted, likely home with home health pending clinical improvement and improvement in creatinine * Hector Deshpande MD - 12/04/2024 8:34 AM EDT Images from the original note were not included. Consults PULMONARY AND CRITICAL CARE Consult Note Date of Service: 12/04/2024 HPI: This is a 64 y.o. year old female with past medical history as below. She initially presented to [facility] with swollen abdomen, abdominal discomfort, and bilateral lower extremity pain. Her creatinine was elevated and as a result, she was transferred to [facility] for he patorenal syndrome. Upon arrival here, she endorsed a 4-week history of shortness of breath, orthopnea, and ataxia along with the abdominal and lower extremity edema. She also endorsed recent black, tarry stools as well. Upon arrival here, labs of significance included WBC 1.9, platelets 64, creatinine 4.15, and CK 356. She underwent a paracentesis on 11/30 with 6 liters removed. EGD on 12/01 revealed a duodenal ulcer, but no evidence of active bleeding. She underwent a bone marrow biopsy on 12/02 and pathology result is still pending. On 12/03, she began having atrial fib with some runs of non-sustained v. tach. She is currently beingtransferred to the unit and Pulmonary has been consulted for critical care management. 12/04 I have seen and examined the patient this morning, her sister at bedside, have discussed with the patient and his sister about the patient condition answered all the questions and concerns, theyexpressed transcending, discussed with nephrology about the patient condition and plan, chest x-shawna 12/04 interpreted independently showed low lung volume bilaterally with worsening pulmonary edemaand vascular congestion, on nasal cannula 3 L oxygen saturation 95%, respiratory 27, pressure 140/65, pulse 86, temperature 98.2, ABG 7.29/43/100/6 with bicarb of 21, hemoglobin 9, platelets 65, WBC 4.1, sodium 146, creatinine 3.38, fluid balance +300 mL, on ceftriaxone. PAST MEDICAL HISTORY: Past Medical History: Diagnosis Date Cirrhosis, non-alcoholic (HCC) Diabetes mellitus (HCC) Hypertension PAST SURGICAL HISTORY: Past Surgical History: Procedure Laterality Date ESOPHAGOGASTRODUODENOSCOPY (EGD),REMOVAL FOREIGN BODY N/A 12/01/2024 Procedure: EGD, WITH FOREIGN BODY REMOVAL; Surgeon: Scott Daley MD; [facility]; Service: Gastroenterology; Laterality: N/A; Allergies: No Known Allergies SOCIAL HISTORY: Social History Tobacco Use Smoking status: Never Passive exposure: Never Smokeless tobacco: Never Substance Use Topics Alcohol use: Never Drug use: Never FAMILY HISTORY: family history is not on file. Review of Systems Constitutional: Positive for malaise/fatigue. Respiratory: Positive for shortness of breath. Negative for cough and sputum production. Cardiovascular: Positive for leg swelling. Negative for chest pain. Gastrointestinal: Negative for abdominal pain, nausea and vomiting. Neurological: Positive for weakness. All other systems reviewed and are negative. Vital Signs Temp: [97.4 ??F (36.3 ??C)-98.2 ??F (36.8 ??C)] 98.2 ??F (36.8 ??C) Pulse: [62-167] 86 Resp: [13-27] 27 BP: (98-165)/(55-77) 140/65 Current: Temp: 98.2 ??F (36.8 ??C) Pulse: 86 Resp: 27 BP: (!) 140/65 SpO2: 95 % 24 Hour: BP Min: 98/61 Max: 165/77 Temp Min: 97.4 ??F (36.3 ??C) Max: 98.2 ??F (36.8 ??C) Pulse Min: 62 Max: 167 Resp Min: 13 Max: 27 SpO2 Min: 92 % Max: 100 % Intake/Output: I/O last 3 completed shifts: In: 1842.7 [P.O.:1560; I.V.:82.7; IV Piggyback:200] Out: 250 [Urine:250] Physical Exam Constitutional: General: She is not in acute distress. Appearance: She is obese. She is ill-appearing. Comments: 3L NC HENT: Head: Normocephalic. Nose: Nose normal. Mouth/Throat: Mouth: Mucous membranes are moist. Pharynx: Oropharynx is clear. Eyes: Pupils: Pupils are equal, round, and reactive to light. Cardiovascular: Rate and Rhythm: Normal rate and regular rhythm. Pulses: Normal pulses. Heart sounds: Normal heart sounds. Pulmonary: Effort: Pulmonary effort is normal. No respiratory distress. Breath sounds: Examination of the right-lower field reveals decreased breath sounds. Examination ofthe left-lower field reveals decreased breath sounds. Decreased breath sounds present. Abdominal: General: Bowel sounds are normal. Palpations: Abdomen is soft. Musculoskeletal: Cervical back: Normal range of motion. Right lower leg: Edema present. Left lower leg: Edema present. Skin: General: Skin is warm and dry. Capillary Refill: Capillary refill takes less than 2 seconds. Neurological: Mental Status: She is alert and oriented to person, place, and time. Mental status is at baseline. Psychiatric: Mood and Affect: Mood normal. Behavior: Behavior normal. Vent / O2 Management: LABS Results for orders placed or performed during the hospital encounter of 11/30/24 (from the past 24 hours) ECG 12 lead Status: None Collection Time: 12/03/24 10:39 AM Result Value Ref Range VENTRICULAR RATE EKG/MIN 97 BPM ATRIAL RATE (MCT) 97 BPM MI Interval 150 ms QRS-INTERVAL (MSEC) 88 ms QT Interval 362 ms QTC Interval 459 ms P [place] 40 degrees R AXIS (MCT) 8 degrees T Wave [place] -8 degrees Bryan Diagnosis Normal sinus rhythm Normal ECG No previous ECGs available Confirmed by DEYSI FOSS M.D. ([id number]) on 12/03/2024 5:59:01 PM Glucose, Nova Meter Status: Abnormal Collection Time: 12/03/24 10:45 AM Result Value Ref Range POC-GLUCOSE 156 (H) 70 - 110 mg/dL Laboratory Scientist [id number] ECG 12 lead Status: None Collection Time: 12/03/24 2:16 PM Result Value Ref Range VENTRICULAR RATE EKG/MIN 136 BPM ATRIAL RATE (MCT) 73 BPM QRS-INTERVAL (MSEC) 88 ms QT Interval 304 ms QTC Interval 457 ms R AXIS (MCT) -11 degrees T Wave [place] -58 degrees Bryan Diagnosis Atrial fibrillation with rapid ventricular response Possible Anterolateral infarct , age undetermined Possible abberancy Confirmed by DEYSI FOSS M.D. ([id number]) on 12/03/2024 5:58:45 PM Glucose, Nova Meter Status: Abnormal Collection Time: 12/03/24 5:19 PM Result Value Ref Range POC-GLUCOSE 146 (H) 70 - 110 mg/dL Laboratory Scientist [id number] Glucose, Nova Meter Status: Abnormal Collection Time: 12/03/24 9:41 PM Result Value Ref Range POC-GLUCOSE 146 (H) 70 - 110 mg/dL Laboratory Scientist [id number] Hemoglobin Status: Abnormal Collection Time: 12/04/24 1:04 AM Result Value Ref Range Hemoglobin 9.0 (L) 11.2 - 15.7 GM/DL ECG 12 lead Status: None (In process) Collection Time: 12/04/24 3:25 AM Result Value Ref Range SYSTOLIC BLOOD PRESSURE (MCT) 165 mmHg DIASTOLIC BLOOD PRESSURE (MCT) 77 mmHg VENTRICULAR RATE EKG/MIN 80 BPM ATRIAL RATE (MCT) 80 BPM MI Interval 154 ms QRS-INTERVAL (MSEC) 76 ms QT Interval 380 ms QTC Interval 438 ms P [place] 47 degrees R AXIS (MCT) 44 degrees T Wave [place] -30 degrees Bryan Diagnosis Normal sinus rhythm Low voltage QRS Nonspecific T wave abnormality Abnormal ECG When compared with ECG of 03-DEC-2024 14:16, Sinus rhythm has replaced Atrial fibrillation Vent. rate has decreased BY 56 BPM Nonspecific T wave abnormality now evident in Anterior leads Magnesium Status: Normal Collection Time: 12/04/24 3:34 AM Result Value Ref Range Magnesium 2.5 1.6 - 2.6 mg/dL Comprehensive Metabolic Panel Status: Abnormal Collection Time: 12/04/24 3:34 AM Result Value Ref Range Sodium 143 136 - 145 meq/L Potassium 3.7 3.4 - 5.1 meq/L Chloride 115 (H) 98 - 112 meq/L CO2 20 (L) 22 - 29 meq/L Calcium 8.3 (L) 8.4 - 10.2 mg/dL Glucose 203 (H) 82 - 115 mg/dL BUN 58.6 (H) 9.8 - 20.1 mg/dL Creatinine 3.43 (H) 0.57 - 1.11 mg/dL BUN/Creatinine 17 8 - 20 eGFR (mL/min/1.73m2) 15 (L) >=60 mL/min/1.73m2 Albumin 4.2 3.5 - 5.0 g/dL Alkaline Phosphatase 47 40 - 150 U/L ALT 11 <=34 U/L AST 21 11 - 34 U/L Total Bilirubin 1.1 0.2 - 1.2 mg/dL Protein, Total 6.7 6.4 - 8.3 g/dL Globulin 2.5 2.5 - 4.1 g/dL Anion Gap 12 4 - 12 A/G Ratio 1.7 0.7 - 1.9 Osmolality Calc 307.2 mOsm/kg Phosphorus Status: Normal Collection Time: 12/04/24 3:34 AM Result Value Ref Range Phosphorus 4.2 2.5 - 4.5 mg/dL Ammonia Status: Normal Collection Time: 12/04/24 3:35 AM Result Value Ref Range Ammonia 30 18 - 72 ??mol/L CBC with automated diff Status: Abnormal Collection Time: 12/04/24 3:35 AM Result Value Ref Range WBC 3.2 (L) 4.0 - 10.0 K/??L RBC 2.88 (L) 3.93 - 5.22 M/??L Hemoglobin 8.9 (L) 11.2 - 15.7 GM/DL Hematocrit 28.4 (L) 34.1 - 44.9 % MCV 99 (H) 79 - 95 fL MCH 30.9 25.6 - 32.2 pg MCHC 31.3 (L) 32.2 - 35.5 GM/DL RDW 17.4 (H) 11.7 - 14.4 % Platelets 61 (L) 140 - 375 K/CU MM MPV 11.1 9.4 - 12.3 fL % Neutros 80 (H) 34 - 71 % % Lymphs 12 (L) 19 - 52 % % Monos 8 5 - 13 % % Eos 0 (L) 1 - 6 % % Baso 0 0 - 1 % NRBC Absolute <0.01 0 - 0.012 K/ul # Neutros 2.58 1.56 - 6.13 K/??L # Lymphs 0.39 (L) 1.18 - 3.74 K/??L # Monos 0.25 0.24 - 0.86 K/??L # Eos <0.03 (L) 0.04 - 0.36 K/ L # Baso <0.03 0.01 - 0.08 K/ L Immature Granulocytes-Relative 0.30 0.01 - 0.43 % # IG <0.03 0.00 - 0.03 K/uL Glucose, Nova Meter Status: Abnormal Collection Time: 12/04/24 6:13 AM Result Value Ref Range POC-GLUCOSE 155 (H) 70 - 110 mg/dL Laboratory Scientist [id number] Blood gas, arterial Status: Abnormal Collection Time: 12/04/24 6:34 AM Result Value Ref Range pH, Arterial 7.29 (L) 7.35 - 7.45 pCO2, Arterial 43 35 - 45 mm Hg pO2, Arterial 106 (H) 80 - 100 mm Hg HCO3, Arterial 21 20 - 26 mmol/L Base Excess, Arterial -5.2 (L) -2.0 - 2.0 mmol/L O2 Sat, Arterial 98.8 95.0 - 100.0 % CTO2 ARTERIAL 11.9 mmol/L THB ARTERIAL 8.6 (L) 12.0 - 18.0 g/dL [facility] SITE Right Brachial Arterial Puncture Yes Blood Gas O2 Delivery Device Cannula Oxygen Flow Rate 3 Blood Gas PT Temperature C 37.0 Sen's Test Not Applicable Critical Values Notification Critical Blood gas called to DAYANARA MATIAS . Results acknowledged/read back to [id number] and confirmed on 12/04/2024 07:09 ABG Number of Draw Attempts 1 FIO2 Blood Gas Temperature Corrected Results No No Radiology Radiology Results (last day) Procedure Component Value Units Date/Time XR chest AP portable [[id number]] Resulted: 12/04/24 0750 Order Status: Sent Updated: 12/04/24 075 XR chest AP portable [[id number]] Collected: 12/03/24 180 Order Status: Completed Updated: 12/03/24 1808 Narrative: PORTABLE CHEST 12/03/2024 3:53 PM HISTORY: Precordial chest pain. COMPARISON: 3 days prior. FINDINGS: The heart is stable in size . There has been interval worsening in the vascular congestion. There is no pneumothorax . Impression: Interval worsening as above. Continued follow up recommended . Images reviewed, interpreted, and dictated by Jose C Calhoun MD Microbiology: Microbiology Results (last 7 days) Procedure Component Value Units Date/Time Anaerobic Culture [[id number]] Collected: 11/30/24 1603 Order Status: Completed Specimen: Peritoneal Fluid from Body Fluid Updated: 12/04/24 0754 Result No Anaerobic growth Narrative: Specimen Description: peritoneal fluid Blood Culture [[id number]] Collected: 11/30/24 0340 Order Status: Completed Specimen: Blood from Arm, Left Updated: 12/04/24 0501 Result No growth in 4 days Blood Culture [[id number]] Collected: 11/30/24 0342 Order Status: Completed Specimen: Blood from Arm, Right Updated: 12/04/24 0501 Result No growth in 4 days Body Fluid Culture + Gram Stain [[id number]] Collected: 11/30/24 1603 Order Status: Completed Specimen: Peritoneal Fluid from Body Fluid Updated: 12/03/24 0907 Result No growth Gram Stain Result No organisms seen No cells seen Narrative: Specimen Description: peritoneal fluid Body Fluid/CSF - Path Review (SJ) [[id number]] Collected: 11/30/24 1603 Order Status: Completed Specimen: Peritoneal Fluid from Body Fluid Updated: 12/03/24 0654 SENT TO PATHOLOGY FOR REVIEW Yes Scan Result Mesothelial cells. MD German 12/02/2024 AFB Culture And Stain [[id number]] Collected: 11/30/24 1603 Order Status: Completed Specimen: Peritoneal Fluid from Body Fluid Updated: 12/01/24 1410 AFB Smear No acid fast bacilli seen Narrative: Specimen Description: peritoneal fluid Glucose, body fluid [[id number]] Collected: 11/30/24 1603 Order Status: Completed Specimen: Body Fluid from Peritoneal Fluid Updated: 12/01/24 0710 Glucose, Body Fluid 107 mg/dL BODY FLUID TYPE Peritoneal Narrative: This test has been modified from the golf course laborer's instructions and its performance characteristics were determined by the laboratory. The reference intervals and other method performance specifications are unavailable for this test. It is recommended to interpret body fluid concentrations in comparison with the corresponding serum or plasma concentrations and to integrate test results into the clinical context. Protein, body fluid [[id number]] Collected: 11/30/241602 Order Status: Completed Specimen: Body Fluid from Peritoneal Fluid Updated: 12/01/24 0710 Protein, Fluid 1.9 g/dL BODY FLUID TYPE Peritoneal Narrative: This test has been modified from the golf course laborer's instructions and its performance characteristics were determined by the laboratory. The reference intervals and other method performance specifications are unavailable for this test. It is recommended to interpret body fluid concentrations in comparison with the corresponding serum or plasma concentrations and to integrate test results into the clinical context. Urine Culture [[id number]] Collected: 11/30/24 1135 Order Status: Completed Specimen: Urine, Clean Catch Updated: 12/01/24648 Result Recollect Specimen - 3 or more organisms suggests contamination Body fluid cell count with differential [[id number]] (Abnormal) Collected: 11/30/241602 Order Status: Completed Specimen: Peritoneal Fluid from Body Fluid Updated: 11/30/242048 Appearance Cloudy Color Yellow BODY FLUID TYPE Peritoneal Auto WBC/Nucleated Cells BF 85 /uL Comment: Please refer to specific WBC/Nucleated Cell Count Body Fluid reference ranges below: For Pleural: 0-1000 Peritoneal: 0-1000 Pericardial:0-1000 Synovial: 0-200 Auto RBC BF <3,000 /uL Comment: Please refer to specific RBC Cell Count Body Fluid reference ranges below: Pleural: 0-10,000 Peritoneal: 0-10,000 Pericardial:0-10,000 Synovial:0-30 Narrative: There is normally no readily obtainable pleural, peritoneal and pericardial fluid, hence normal elements for these potential fluids are not defined. DIFFERENTIAL, BODY FLUID [[id number]] Collected: 11/30/241602 Order Status: Completed Specimen: Peritoneal Fluid from Body Fluid Updated: 11/30/242048 Neutrophils Fluid 5 % Lymphocytes Fluid 46 % Unidentified Mononuclear Cells BF 49 % Lactate dehydrogenase (LDH), body fluid [[id number]] Collected: 11/30/241602 Order Status: Completed Specimen: Peritoneal Fluid from Body Fluid Updated: 11/30/24 1819 LDH, Fluid 71 U/L BODY FLUID TYPE Peritoneal Narrative: This test has been modified from the golf course laborer's instructions and its performance characteristics were determined by the laboratory. The reference intervals and other method performance specifications are unavailable for this test. It is recommended to interpret body fluid concentrations in comparison with the corresponding serum or plasma concentrations and to integrate test results into the clinical context. Fungus Culture W/ROSA MARIA Or Nimisha Ink [[id number]] Collected: 11/30/24 1603 Order Status: Completed Specimen: Peritoneal Fluid from Body Fluid Updated: 11/30/24 1754 ROSA MARIA Prep No fungal elements seen Narrative: Specimen Description: peritoneal fluid Total Protein, Body Fluid(SENDOUT) [[id number]] Collected: 11/30/24 1603 Order Status: Canceled Specimen: Peritoneal Fluid from Body Fluid Updated: 11/30/24 1634 Glucose Body Fluid(SENDOUT) [[id number]] Collected: 11/30/24 1603 Order Status: Canceled Specimen: Peritoneal Fluid from Body Fluid Updated: 11/30/24 1634 Urine Culture [[id number]] Collected: 11/30/24 1135 Order Status: Canceled Specimen: Urine, Clean Catch Updated: 11/30/24 1206 Normal sized left ventricle. Normal left ventricular wall thickness. Visually estimated ejection fraction 55% +/- 5%. Borderline systolic strain pattern. Increased left atrial pressure (Grade II diastolic dysfunction). Sclerotic aortic valve leaflets. Trivial pericardial effusion measuring 0.3cm. posteriorly ASSESSMENT: Pulmonary Acute hypoxemic respiratory failure Acute pulmonary edema and pulmonary vascular congestion Never smoker GI Decompensated cirrhosis, new diagnosis MELD-NA score = 21 Hyperammonemia - improved S/p paracentesis on 11/30 - 6L removed S/p EGD on 12/01 - duodenal ulcer, no evidence of active bleeding Cardiac Hemodynamically stable New-onset atrial fib with non-sustained runs of v. tach - improved, on Amio gtt Diastolic HFpEF Renal Acute on chronic kidney disease, baseline unknown Hypernatremia Heme Pancytopenia S/p bone marrow biopsy on 12/02 - path pending Neuro Awake, alert Endo DM PLAN: Maintain sat >89%, currently on nasal cannula 3 L. Awake and alert Keep head of bed at 30 degrees and maintain aspiration precautions. Nonsustained V. tach, A-fib with RVR, given IV amiodarone bolus, started on amiodarone drip. EP cardiology was consulted. Echocardiogram: Echo on 11/30 showed ejection fraction 55 to 60%, grade 2 diastolic dysfunction, trivial epicardial effusion. Hemodynamic: Stable Hemodynamic support: Maintain MAP above 65. Antibiotics: On ceftriaxone. Follow up on cultures. Discussed with nephrology they are planning to give diuretics today. Hypernatremia, hyperchloremia, metabolic acidosis, acute kidney injury, possible hepatorenal syndrome, nephrology was consulted. Started on albumin. Continue to hold metformin and lisinopril. Per nephrology there is no PHARMACOMETRICIAN indication at this time. Ultrasound renal on 11/30 showed normal renal ultrasound. Bun/Cr reviewed Monitor renal functions and electrolytes closely. Replace electrolytes per protocol. Maintain serum potassium of 4.0, magnesium of 2.0 and phosphorusof 2.5 and normal latest calcium with appropriate replacement. Monitor I&O. Avoid nephrotoxins. Nutrition: started on diet. GI was consulted. EGD on 12/01 showed duodenal ulcer and small varices. GI recommended to continue pantoprazole twice daily for 8 weeks, repeat EGD in 8 to 12 weeks. Ultrasound liver on 11/30 showed cirrhosis, no focal liver lesion identified, small volume perihepatic ascites. Paracentesis on 11/30 with removal of 6 L On lactulose and rifaximin. Started on bowel Regimen. Hyperglycemia: Target glucose 140-180 mg/dL. SSI, monitor BS. Hold home antidiabetic medications. Pancytopenia, Acute anemia status post blood transfusion on 12/01 and 12/02. Status post bone marrow biopsy on 12/02, pathology still pending. Hematology/oncology consulted. Monitor H&H. Transfuse as needed. Musculoskeletal: Consulted PT/OT. GI prophylaxis: Pantoprazole DVT prophylaxis: SCDs. AM labs and chest x-ray ordered. Code Status: Current Code Status Full code Prognosis: Guarded. At risk for respiratory and cardiovascular complications. Disposition: The patient remain critically ill, would recommend to keep the patein in the ICU. CRITICAL CARE TIME: Cumulative critical care time spent on the patient for the day excluding procedures 37 minutes. Patient seen and examined at bedside. I performed history and physical examination. I reviewed laboratory studies, imaging studies, other diagnostic studies, and inpatient medications. Chest imaging studies visualized and reviewed independent of radiologist. Case discussed with the multidisciplinary team including nurse practitioner, nurse, RT, wire coiner, pharmacist, and case management during multidisciplinary round. I Dr.Hazim Jeramy MD, have personally evaluated the patient and performed a azyl-oh-synx diagnostic evaluation on this patient; I have Obtained history, performed physical examination, reviewed laboratory studies. I have reviewed images independent of radiologist. I have actively directed the medical care, formulated diagnosis, and the plan of care. Patient requires a high complexity of decision making for assessment. Voice moss bleacher technology ([employer]) is used for dictation of this note and sound-alike words might be erroneously placed despite reviewing the note for accuracy. Errors in dictation may reflect use of voice recognition software and not all errors in moss bleacher may have been detected prior to signing. It may contain errors and words that were not intended to be used. Please contact the provider for errors or clarifications. * Hill Boo MD - 12/04/2024 8:27 AM EDT Subjective No acute events overnight. No new complain Review of Systems No CP, SOA, N/V, fever, chills or rash Objective Last Recorded Vitals Blood pressure (!) 140/65, pulse 86, temperature 98.2 ??F (36.8 ??C), temperature source Axillary, resp. rate 27, height 1.676 m (5' 6 ), weight 102.3 kg (225 lb 8 oz), SpO2 95%. Physical Exam Gen: Alert, NAD HEENT: NC, AT Neck: Supple, no JVD Lungs: CTA. Non labored, symetrical chest expansion CVS: SI/S2 audible. RRR, No M/G noted Abd: soft, NT, ND, BS + Ext: +++ Pedal edema , no cyanosis WALLPAPERER HELPER: Alert, No focal deficit noted grossly Psy: Cooperative Labs: Results for orders placed or performed during the hospital encounter of 11/30/24 (from the past 24 hours) CBC with automated diff Status: Abnormal Collection Time: 12/03/24 8:31 AM Result Value Ref Range WBC 2.8 (L) 4.0 - 10.0 K/??L RBC 2.68 (L) 3.93 - 5.22 M/??L Hemoglobin 8.2 (L) 11.2 - 15.7 GM/DL Hematocrit 26.1 (L) 34.1 - 44.9 % MCV 97 (H) 79 - 95 fL MCH 30.6 25.6 - 32.2 pg MCHC 31.4 (L) 32.2 - 35.5 GM/DL RDW 17.5 (H) 11.7 - 14.4 % Platelets 55 (L) 140 - 375 K/CU MM MPV 10.0 9.4 - 12.3 fL % Neutros 79 (H) 34 - 71 % % Lymphs 13 (L) 19 - 52 % % Monos 6 5 - 13 % % Eos 0 (L) 1 - 6 % % Baso 0 0 - 1 % NRBC Absolute <0.01 0 - 0.012 K/ul # Neutros 2.22 1.56 - 6.13 K/??L # Lymphs 0.37 (L) 1.18 - 3.74 K/??L # Monos 0.18 (L) 0.24 - 0.86 K/??L # Eos <0.03 (L) 0.04 - 0.36 K/ L # Baso <0.03 0.01 - 0.08 K/ L Immature Granulocytes-Relative 0.70 (H) 0.01 - 0.43 % # IG <0.03 0.00 - 0.03 K/uL ECG 12 lead Status: None Collection Time: 12/03/24 10:39 AM Result Value Ref Range VENTRICULAR RATE EKG/MIN 97 BPM ATRIAL RATE (MCT) 97 BPM MI Interval 150 ms QRS-INTERVAL (MSEC) 88 ms QT Interval 362 ms QTC Interval 459 ms P [place] 40 degrees R AXIS (MCT) 8 degrees T Wave [place] -8 degrees Bryan Diagnosis Normal sinus rhythm Normal ECG No previous ECGs available Confirmed by DEYSI FOSS M.D. ([id number]) on 12/03/2024 5:59:01 PM Glucose, Nova Meter Status: Abnormal Collection Time: 12/03/24 10:45 AM Result Value Ref Range POC-GLUCOSE 156 (H) 70 - 110 mg/dL Laboratory Scientist [id number] ECG 12 lead Status: None Collection Time: 12/03/24 2:16 PM Result Value Ref Range VENTRICULAR RATE EKG/MIN 136 BPM ATRIAL RATE (MCT) 73 BPM QRS-INTERVAL (MSEC) 88 ms QT Interval 304 ms QTC Interval 457 ms R AXIS (MCT) -11 degrees T Wave [place] -58 degrees Bryan Diagnosis Atrial fibrillation with rapid ventricular response Possible Anterolateral infarct , age undetermined Possible abberancy Confirmed by DEYSI FOSS M.D. ([id number]) on 12/03/2024 5:58:45 PM Glucose, Nova Meter Status: Abnormal Collection Time: 12/03/24 5:19 PM Result Value Ref Range POC-GLUCOSE 146 (H) 70 - 110 mg/dL Laboratory Scientist [id number] Glucose, Nova Meter Status: Abnormal Collection Time: 12/03/24 9:41 PM Result Value Ref Range POC-GLUCOSE 146 (H) 70 - 110 mg/dL Laboratory Scientist [id number] Hemoglobin Status: Abnormal Collection Time: 12/04/24 1:04 AM Result Value Ref Range Hemoglobin 9.0 (L) 11.2 - 15.7 GM/DL ECG 12 lead Status: None (In process) Collection Time: 12/04/24 3:25 AM Result Value Ref Range SYSTOLIC BLOOD PRESSURE (MCT) 165 mmHg DIASTOLIC BLOOD PRESSURE (MCT) 77 mmHg VENTRICULAR RATE EKG/MIN 80 BPM ATRIAL RATE (MCT) 80 BPM MI Interval 154 ms QRS-INTERVAL (MSEC) 76 ms QT Interval 380 ms QTC Interval 438 ms P [place] 47 degrees R AXIS (MCT) 44 degrees T Wave [place] -30 degrees Bryan Diagnosis Normal sinus rhythm Low voltage QRS Nonspecific T wave abnormality Abnormal ECG When compared with ECG of 03-DEC-2024 14:16, Sinus rhythm has replaced Atrial fibrillation Vent. rate has decreased BY 56 BPM Nonspecific T wave abnormality now evident in Anterior leads Magnesium Status: Normal Collection Time: 12/04/24 3:34 AM Result Value Ref Range Magnesium 2.5 1.6 - 2.6 mg/dL Comprehensive Metabolic Panel Status: Abnormal Collection Time: 12/04/24 3:34 AM Result Value Ref Range Sodium 143 136 - 145 meq/L Potassium 3.7 3.4 - 5.1 meq/L Chloride 115 (H) 98 - 112 meq/L CO2 20 (L) 22 - 29 meq/L Calcium 8.3 (L) 8.4 - 10.2 mg/dL Glucose 203 (H) 82 - 115 mg/dL BUN 58.6 (H) 9.8 - 20.1 mg/dL Creatinine 3.43 (H) 0.57 - 1.11 mg/dL BUN/Creatinine 17 8 - 20 eGFR (mL/min/1.73m2) 15 (L) >=60 mL/min/1.73m2 Albumin 4.2 3.5 - 5.0 g/dL Alkaline Phosphatase 47 40 - 150 U/L ALT 11 <=34 U/L AST 21 11 - 34 U/L Total Bilirubin 1.1 0.2 - 1.2 mg/dL Protein, Total 6.7 6.4 - 8.3 g/dL Globulin 2.5 2.5 - 4.1 g/dL Anion Gap 12 4 - 12 A/G Ratio 1.7 0.7 - 1.9 Osmolality Calc 307.2 mOsm/kg Phosphorus Status: Normal Collection Time: 12/04/24 3:34 AM Result Value Ref Range Phosphorus 4.2 2.5 - 4.5 mg/dL Ammonia Status: Normal Collection Time: 12/04/24 3:35 AM Result Value Ref Range Ammonia 30 18 - 72 ??mol/L CBC with automated diff Status: Abnormal Collection Time: 12/04/24 3:35 AM Result Value Ref Range WBC 3.2 (L) 4.0 - 10.0 K/??L RBC 2.88 (L) 3.93 - 5.22 M/??L Hemoglobin 8.9 (L) 11.2 - 15.7 GM/DL Hematocrit 28.4 (L) 34.1 - 44.9 % MCV 99 (H) 79 - 95 fL MCH 30.9 25.6 - 32.2 pg MCHC 31.3 (L) 32.2 - 35.5 GM/DL RDW 17.4 (H) 11.7 - 14.4 % Platelets 61 (L) 140 - 375 K/CU MM MPV 11.1 9.4 - 12.3 fL % Neutros 80 (H) 34 - 71 % % Lymphs 12 (L) 19 - 52 % % Monos 8 5 - 13 % % Eos 0 (L) 1 - 6 % % Baso 0 0 - 1 % NRBC Absolute <0.01 0 - 0.012 K/ul # Neutros 2.58 1.56 - 6.13 K/??L # Lymphs 0.39 (L) 1.18 - 3.74 K/??L # Monos 0.25 0.24 - 0.86 K/??L # Eos <0.03 (L) 0.04 - 0.36 K/ L # Baso <0.03 0.01 - 0.08 K/ L Immature Granulocytes-Relative 0.30 0.01 - 0.43 % # IG <0.03 0.00 - 0.03 K/uL Glucose, Nova Meter Status: Abnormal Collection Time: 12/04/24 6:13 AM Result Value Ref Range POC-GLUCOSE 155 (H) 70 - 110 mg/dL Laboratory Scientist [id number] Blood gas, arterial Status: Abnormal Collection Time: 12/04/24 6:34 AM Result Value Ref Range pH, Arterial 7.29 (L) 7.35 - 7.45 pCO2, Arterial 43 35 - 45 mm Hg pO2, Arterial 106 (H) 80 - 100 mm Hg HCO3, Arterial 21 20 - 26 mmol/L Base Excess, Arterial -5.2 (L) -2.0 - 2.0 mmol/L O2 Sat, Arterial 98.8 95.0 - 100.0 % CTO2 ARTERIAL 11.9 mmol/L THB ARTERIAL 8.6 (L) 12.0 - 18.0 g/dL [facility]LE[facility] SITE Right Brachial Arterial Puncture Yes Blood Gas O2 Delivery Device Cannula Oxygen Flow Rate 3 Blood Gas PT Temperature C 37.0 Sen's Test Not Applicable Critical Values Notification Critical Blood gas called to DAYANARA MATIAS . Results acknowledged/read back to [id number] and confirmed on 12/04/2024 07:09 ABG Number of Draw Attempts 1 FIO2 Blood Gas Temperature Corrected Results No No XR chest AP portable Narrative: PORTABLE CHEST 12/03/2024 3:53 PM HISTORY: Precordial chest pain. COMPARISON: 3 days prior. FINDINGS: The heart is stable in size . There has been interval worsening in the vascular congestion. There is no pneumothorax . Impression: Interval worsening as above. Continued follow up recommended . Images reviewed, interpreted, and dictated by Jose C Calhoun MD Recent Labs Lab(s) Units 12/04/24 0613 12/04/24 0335 12/04/24 0334 12/04/24 0104 12/03/24 2141 12/03/24 1719 12/03/24 1045 12/03/24 0831 12/03/24 0739 12/03/24 0110 12/02/24 2306 12/02/24 0504 12/02/24 0338 12/01/24 0537 12/01/2440512/01/24404 NA meq/L -- -- 143 -- -- -- -- -- 147* -- -- -- 146* -- -- 145 K meq/L -- -- 3.7 -- -- -- -- -- 4.1 -- -- -- 4.2 -- -- 4.2 CL meq/L -- -- 115* -- -- -- -- -- 119* -- -- -- 118* -- -- 116* CO2 meq/L -- -- 20* -- -- -- -- -- 20* -- -- -- 19* -- -- 20* BUN mg/dL -- -- 58.6* -- -- -- -- -- 53.7* -- -- -- 55.1* -- -- 68.3* CREATININE mg/dL -- -- 3.43* -- -- -- -- -- 3.48* -- -- -- 3.55* -- -- 4.13* ALBUMIN g/dL -- -- 4.2 -- -- -- -- -- 4.4 -- -- -- 3.6 -- -- 2.8* GLUCOSE mg/dL 155* -- 203* -- 146* 146* < > -- 145* < > -- < > 107 < > -- 120* CALCIUM mg/dL -- -- 8.3* -- -- -- -- -- 8.3* -- -- -- 7.9* -- -- 8.0* WBC K/??L -- 3.2* -- -- -- -- -- 2.8* -- -- -- -- 3.0* -- 1.7* -- PLT K/CU MM -- 61* -- -- -- -- -- 55* -- -- -- -- 57* -- 54* -- HGB GM/DL -- 8.9* -- 9.0* -- -- -- 8.2* -- -- 8.9* < > 7.6* < > 6.7* -- < > = values in this interval not displayed. Intake/Output Summary (Last 24 hours) at 12/04/2024 0827 Last data filed at 12/04/2024 0100 Gross per 24 hour Intake 1760 ml Output 250 ml Net 1510 ml Assessment 1- Anasarca - liver disease and low albumin level plus NSAID for one month 2- GERMÁN on CKD - Unknown baseline - on Lisinopril at home. Third spacing and recently increased doseof diuretics. Pre-renal azotemia - On lisinopril and NSAID and recently increased dose of diureticswith low albumin level vs HRS- Feurea 27% suggestive of pre-renal azotemia 3- Hypoalbuminemia - UPCR 0.19 -non nephrotic range proteinuria RBC 0-2 4- Pancytopenia -Hematology following - S/p EGD 12/01/24showing duodenal ulcer and small varices. S/pbone marrow biopsy 5- hx of DM 6- HTN 7- NAFLD 8- Ascites Plan: - Continue with diuretics- bumex and aldactone dose today - Monitor I/O strictly - Avoid nephrotoxic agents - no NSAID - Continue to hold Lisinopril and metformin for GERMÁN - Renal diet - Adjust meds per renal function - No emergent need of PHARMACOMETRICIAN - Monitor H/H and transfuse for Hgb less than 7.0 - Serologic workup pending Discussed with patient * Hema Cervantes MD - 12/03/2024 4:10 PM EDT Subjective Seen and examined at bedside for the first time. Better however noted to be significantly edematous. Objective Last Recorded Vitals Blood pressure (!) 147/65, pulse 94, temperature 97.9 ??F (36.6 ??C), temperature source Oral, resp. rate 16, height 1.676 m (5' 6 ), weight 102.3 kg (225 lb 8 oz), SpO2 96%. Physical Exam Gen: Alert, NAD HEENT: NC, AT Neck: Supple, no JVD Lungs: CTA. Non labored, symetrical chest expansion CVS: SI/S2 audible. RRR, No M/G noted Abd: soft, NT, ND, BS + Ext: +++ Pedal edema , no cyanosis WALLPAPERER HELPER: Alert, No focal deficit noted grossly Psy: Cooperative Labs: Results for orders placed or performed during the hospital encounter of 11/30/24 (from the past 24 hours) Glucose, Nova Meter Status: Abnormal Collection Time: 12/02/24 5:18 PM Result Value Ref Range POC-GLUCOSE 128 (H) 70 - 110 mg/dL Laboratory Scientist [id number] Hemoglobin Status: Abnormal Collection Time: 12/02/24 6:03 PM Result Value Ref Range Hemoglobin 9.1 (L) 11.2 - 15.7 GM/DL Glucose, Nova Meter Status: Abnormal Collection Time: 12/02/24 8:06 PM Result Value Ref Range POC-GLUCOSE 144 (H) 70 - 110 mg/dL Laboratory Scientist [id number] Hemoglobin Status: Abnormal Collection Time: 12/02/24 11:06 PM Result Value Ref Range Hemoglobin 8.9 (L) 11.2 - 15.7 GM/DL Glucose, Nova Meter Status: Abnormal Collection Time: 12/03/24 1:10 AM Result Value Ref Range POC-GLUCOSE 164 (H) 70 - 110 mg/dL Laboratory Scientist [id number] Glucose, Nova Meter Status: Abnormal Collection Time: 12/03/24 1:12 AM Result Value Ref Range POC-GLUCOSE 168 (H) 70 - 110 mg/dL Laboratory Scientist [id number] Glucose, Nova Meter Status: Abnormal Collection Time: 12/03/24 5:13 AM Result Value Ref Range POC-GLUCOSE 142 (H) 70 - 110 mg/dL Laboratory Scientist [id number] Magnesium Status: Normal Collection Time: 12/03/24 7:39 AM Result Value Ref Range Magnesium 2.5 1.6 - 2.6 mg/dL Comprehensive Metabolic Panel Status: Abnormal Collection Time: 12/03/24 7:39 AM Result Value Ref Range Sodium 147 (H) 136 - 145 meq/L Potassium 4.1 3.4 - 5.1 meq/L Chloride 119 (H) 98 - 112 meq/L CO2 20 (L) 22 - 29 meq/L Calcium 8.3 (L) 8.4 - 10.2 mg/dL Glucose 145 (H) 82 - 115 mg/dL BUN 53.7 (H) 9.8 - 20.1 mg/dL Creatinine 3.48 (H) 0.57 - 1.11 mg/dL BUN/Creatinine 15 8 - 20 eGFR (mL/min/1.73m2) 14 (L) >=60 mL/min/1.73m2 Albumin 4.4 3.5 - 5.0 g/dL Alkaline Phosphatase 49 40 - 150 U/L ALT 7 <=34 U/L AST 21 11 - 34 U/L Total Bilirubin 1.1 0.2 - 1.2 mg/dL Protein, Total 6.8 6.4 - 8.3 g/dL Globulin 2.4 (L) 2.5 - 4.1 g/dL Anion Gap 12 4 - 12 A/G Ratio 1.8 0.7 - 1.9 Osmolality Calc 309.7 mOsm/kg Ammonia Status: Normal Collection Time: 12/03/24 7:39 AM Result Value Ref Range Ammonia 36 18 - 72 ??mol/L CBC with automated diff Status: Abnormal Collection Time: 12/03/24 8:31 AM Result Value Ref Range WBC 2.8 (L) 4.0 - 10.0 K/??L RBC 2.68 (L) 3.93 - 5.22 M/??L Hemoglobin 8.2 (L) 11.2 - 15.7 GM/DL Hematocrit 26.1 (L) 34.1 - 44.9 % MCV 97 (H) 79 - 95 fL MCH 30.6 25.6 - 32.2 pg MCHC 31.4 (L) 32.2 - 35.5 GM/DL RDW 17.5 (H) 11.7 - 14.4 % Platelets 55 (L) 140 - 375 K/CU MM MPV 10.0 9.4 - 12.3 fL % Neutros 79 (H) 34 - 71 % % Lymphs 13 (L) 19 - 52 % % Monos 6 5 - 13 % % Eos 0 (L) 1 - 6 % % Baso 0 0 - 1 % NRBC Absolute <0.01 0 - 0.012 K/ul # Neutros 2.22 1.56 - 6.13 K/??L # Lymphs 0.37 (L) 1.18 - 3.74 K/??L # Monos 0.18 (L) 0.24 - 0.86 K/??L # Eos <0.03 (L) 0.04 - 0.36 K/ L # Baso <0.03 0.01 - 0.08 K/ L Immature Granulocytes-Relative 0.70 (H) 0.01 - 0.43 % # IG <0.03 0.00 - 0.03 K/uL ECG 12 lead Status: None (In process) Collection Time: 12/03/24 10:39 AM Result Value Ref Range VENTRICULAR RATE EKG/MIN 97 BPM ATRIAL RATE (MCT) 97 BPM MI Interval 150 ms QRS-INTERVAL (MSEC) 88 ms QT Interval 362 ms QTC Interval 459 ms P [place] 40 degrees R AXIS (MCT) 8 degrees T Wave [place] -8 degrees Bryan Diagnosis Normal sinus rhythm Normal ECG No previous ECGs available Glucose, Nova Meter Status: Abnormal Collection Time: 12/03/24 10:45 AM Result Value Ref Range POC-GLUCOSE 156 (H) 70 - 110 mg/dL Laboratory Scientist [id number] ECG 12 lead Status: None (In process) Collection Time: 12/03/24 2:16 PM Result Value Ref Range VENTRICULAR RATE EKG/MIN 136 BPM ATRIAL RATE (MCT) 73 BPM QRS-INTERVAL (MSEC) 88 ms QT Interval 304 ms QTC Interval 457 ms R AXIS (MCT) -11 degrees T Wave [place] -58 degrees Bryan Diagnosis Atrial fibrillation with rapid ventricular response Possible Anterolateral infarct , age undetermined Abnormal ECG When compared with ECG of 03-DEC-2024 10:39, Atrial fibrillation has replaced Sinus rhythm CT bone marrow biopsy Narrative: CT GUIDED BONE MARROW ASPIRATION AND CORE BIOPSY. HISTORY: Pancytopenia. ATTENDING RADIOLOGIST: Dr. Haseeb Gil. PHYSICIAN ELDER ASSISTANT: Sandra Ramsey PA-C PROCEDURE: After informed consent was obtained and a time-out was performed, the patient was prepped and draped in the usual sterile fashion over the left iliac bone. Utilizing local anesthesia and sterile technique with an osteo core system, access to the left iliac bone was obtained. 2 bone marrow aspirations were obtained. Spicules were confirmed. In addition, a bone marrow core was obtained. The patient received minimal conscious sedation. The patient tolerated the procedure well and left the department in good condition. CONSCIOUS SEDATION: 2 mg of IV Versed and 50 mcg of Fentanyl were administered. Continuous vital sign monitoring was used. An RN was present during the sedation process. Overall sedation time was 30 minutes. Impression: Status post CT guided biopsy bone marrow aspiration and core biopsy without immediate complication. Images reviewed, interpreted, and dictated by Dr. Haseeb Gil. Transcribed by Sandra Ramsey PA-C. Recent Labs Lab(s) Units 12/03/24 1045 12/03/24 0831 12/03/24 0739 12/03/24 0513 12/03/24 0112 12/03/24 0110 12/02/24 2306 12/02/24200512/02/24 1803 12/02/24 1251 12/02/24 0740 12/02/24 0504 12/02/24 0338 12/01/24 0537 12/01/24 0406 12/01/24 0405 11/30/24 0513 11/30/24 0340 NA meq/L -- -- 147* -- -- -- -- -- -- -- -- -- 146* -- -- 145 -- 144 K meq/L -- -- 4.1 -- -- -- -- -- -- -- -- -- 4.2 -- -- 4.2 -- 4.6 CL meq/L -- -- 119* -- -- -- -- -- -- -- -- -- 118* -- -- 116* -- 115* CO2 meq/L -- -- 20* -- -- -- -- -- -- -- -- -- 19* -- -- 20* -- 20* BUN mg/dL -- -- 53.7* -- -- -- -- -- -- -- -- -- 55.1* -- -- 68.3* -- 74.2* CREATININE mg/dL -- -- 3.48* -- -- -- -- -- -- -- -- -- 3.55* -- -- 4.13* -- 4.15* ALBUMIN g/dL -- -- 4.4 -- -- -- -- -- -- -- -- -- 3.6 -- -- 2.8* -- 2.2* GLUCOSE mg/dL 156* -- 145* 142* 168* < > -- < > -- < > -- < > 107 < >-- 120* < > 86 CALCIUM mg/dL -- -- 8.3* -- -- -- -- -- -- -- -- -- 7.9* -- -- 8.0* -- 8.3* WBC K/??L -- 2.8* -- -- -- -- -- -- -- -- -- -- 3.0* -- 1.7* -- -- 1.9* PLT K/CU MM -- 55* -- -- -- -- -- -- -- -- -- -- 57* -- 54* -- -- 64* HGB GM/DL -- 8.2* -- -- -- -- 8.9* -- 9.1* -- 7.4* 7.3* -- 7.6* < > 6.7* -- -- 8.2* < > = values in this interval not displayed. Intake/Output Summary (Last 24 hours) at 12/03/2024 1610 Last data filed at 12/02/2024 2215 Gross per 24 hour Intake 692.67 ml Output 575 ml Net 117.67 ml Assessment 1- Anasarca - liver disease and low albumin level vs nephrotic syndrome plus NSAID for one month 2- GERMÁN on CKD - Unknown baseline - on Lisinopril at home. Third spacing and recently increased doseof diuretics. Pre-renal azotemia - On lisinopril and NSAID and recently increased dose of diureticswith low albumin level vs HRS- Feurea 27% suggestive of pre-renal azotemia 3- Hypoalbuminemia - UPCR 0.19 -non nephrotic range proteinuria 4- Pancytopenia -Hematology following - S/p EGD 12/01/24showing duodenal ulcer and small varices. 5- hx of DM 6- HTN 7- NAFLD 8- Ascites Plan: - Significant improvement in renal function . continue with albumin infusion. -Volume overloaded on exam. [Order JEANA, ANCA; SPEP no M spike] , check CK level and urine eos - Monitor I/O - Avoid nephrotoxic agents - no NSAID - Continue to hold Lisinopril and metformin for GERMÁN - Renal diet - Adjust meds per renal function - No emergent need of PHARMACOMETRICIAN - Monitor H/H and transfuse for Hgb less than 7.0 * Brandan Kerr, PT - 12/03/2024 2:16 PM EDT Images from the original note were not included. Inpatient Physical Therapy Attempt to Treat Patient Name: Mary Coronel Birthday: 1960 Date of Attempt: 12/03/2024 Time: [id number]. Gathered subjective history from patient and assessed vitals. Following this, nurse entered room reporting patient was in AFIB with RVR and requested PT hold evaluation at this time. PT will continueto follow. Pt had mobilized earlier this date with OT. Electronically signed by Brandan Kerr, PT - 12/03/2024 - 2:16 PM EDT * Destiney Llanes, ÁNGEL - 12/03/2024 10:12 AM EDT Name: Mary Coronel Admit Date: 11/30/2024 LOS: 3 days Location:[id number]- PCP on file: [facility] Principal Problem: Anasarca ASSESSMENT & PLAN for 12/03/2024 Principal Problem: Anasarca Assessment: 64 y/o with history of NAFLD presents to our facility w/ increased abdominal distention and LLE. Found to have increased renal function and pancytopenia. She denies alcohol use. She previously saw for NAFLD but never follow up after 2021. S/p EGD yesterday showing duodenal ulcer and small varices. 12/02/2024: Fluid studies negative. No SBP. Cytology pending. Hgb still low. Oncology planning bone marrow biopsy. Still with GERMÁN. Nephrology following. 12/03/2024: s/p bone marrow biopsy. Renal function slowly improving. -PRN paracentesis until diuretics can be ordered. Nephrology to dose. -Monitor stools. -Trend H/H, transfuse <7. Hem/onc following pancytopenia -Recommend PPI BID x 8 weeks. Repeat EGD in 8-12 weeks. -She has an appt with Dr. Law Cote on December 07 in [place], [place]. -No evidence of SBP -Continue Lactulose/Xifaxan at discharge. GI will sign off. SUBJECTIVE: Mary Coronel doing well. Sitting in chair. Review of systems: Review of Systems All other systems reviewed and are negative. OBJECTIVE: Vitals Temp: 97.9 ??F (36.6 ??C) - BP: (!) 147/65 - Pulse: 94 - Resp: 16 - SpO2: 96 % Temp Min: 97.3 ??F (36.3 ??C) Max: 99 ??F (37.2 ??C) I / O I/O last 3 completed shifts: In: 1162.7 [P.O.:580; I.V.:132.7; Blood:250; IV Piggyback:200] Out: 1075 [Urine:475; Stool:600] Weight / BMI Recent weight: @FLOWDT(14::1)@ - Body mass index is 36.4 kg/m??. Admit weight: 102.1 kg (225 lb) [place] - Gault (eCrCl) Estimated Creatinine Clearance: 15.7 mL/min (A) (by C-G formula based on SCr of 3.48 mg/dL (H)). Physical Exam Constitutional: General: She is sleeping. Cardiovascular: Rate and Rhythm: Normal rate. Pulmonary: Effort: Pulmonary effort is normal. Abdominal: General: Abdomen is flat. There is distension. Palpations: Abdomen is soft. Data: Results for orders placed or performed during the hospital encounter of 11/30/24 (from the past 24 hours) Glucose, Nova Meter Status: Abnormal Collection Time: 12/02/24 12:51 PM Result Value Ref Range POC-GLUCOSE 112 (H) 70 - 110 mg/dL Laboratory Scientist [id number] Glucose, Nova Meter Status: Abnormal Collection Time: 12/02/24 5:18 PM Result Value Ref Range POC-GLUCOSE 128 (H) 70 - 110 mg/dL Laboratory Scientist [id number] Hemoglobin Status: Abnormal Collection Time: 12/02/24 6:03 PM Result Value Ref Range Hemoglobin 9.1 (L) 11.2 - 15.7 GM/DL Glucose, Nova Meter Status: Abnormal Collection Time: 12/02/24 8:06 PM Result Value Ref Range POC-GLUCOSE 144 (H) 70 - 110 mg/dL Laboratory Scientist [id number] Hemoglobin Status: Abnormal Collection Time: 12/02/24 11:06 PM Result Value Ref Range Hemoglobin 8.9 (L) 11.2 - 15.7 GM/DL Glucose, Nova Meter Status: Abnormal Collection Time: 12/03/24 1:10 AM Result Value Ref Range POC-GLUCOSE 164 (H) 70 - 110 mg/dL Laboratory Scientist [id number] Glucose, Nova Meter Status: Abnormal Collection Time: 12/03/24 1:12 AM Result Value Ref Range POC-GLUCOSE 168 (H) 70 - 110 mg/dL Laboratory Scientist [id number] Glucose, Nova Meter Status: Abnormal Collection Time: 12/03/24 5:13 AM Result Value Ref Range POC-GLUCOSE 142 (H) 70 - 110 mg/dL Laboratory Scientist [id number] Magnesium Status: Normal Collection Time: 12/03/24 7:39 AM Result Value Ref Range Magnesium 2.5 1.6 - 2.6 mg/dL Comprehensive Metabolic Panel Status: Abnormal Collection Time: 12/03/24 7:39 AM Result Value Ref Range Sodium 147 (H) 136 - 145 meq/L Potassium 4.1 3.4 - 5.1 meq/L Chloride 119 (H) 98 - 112 meq/L CO2 20 (L) 22 - 29 meq/L Calcium 8.3 (L) 8.4 - 10.2 mg/dL Glucose 145 (H) 82 - 115 mg/dL BUN 53.7 (H) 9.8 - 20.1 mg/dL Creatinine 3.48 (H) 0.57 - 1.11 mg/dL BUN/Creatinine 15 8 - 20 eGFR (mL/min/1.73m2) 14 (L) >=60 mL/min/1.73m2 Albumin 4.4 3.5 - 5.0 g/dL Alkaline Phosphatase 49 40 - 150 U/L ALT 7 <=34 U/L AST 21 11 - 34 U/L Total Bilirubin 1.1 0.2 - 1.2 mg/dL Protein, Total 6.8 6.4 - 8.3 g/dL Globulin 2.4 (L) 2.5 - 4.1 g/dL Anion Gap 12 4 - 12 A/G Ratio 1.8 0.7 - 1.9 Osmolality Calc 309.7 mOsm/kg Ammonia Status: Normal Collection Time: 12/03/24 7:39 AM Result Value Ref Range Ammonia 36 18 - 72 ??mol/L CBC with automated diff Status: Abnormal Collection Time: 12/03/24 8:31 AM Result Value Ref Range WBC 2.8 (L) 4.0 - 10.0 K/??L RBC 2.68 (L) 3.93 - 5.22 M/??L Hemoglobin 8.2 (L) 11.2 - 15.7 GM/DL Hematocrit 26.1 (L) 34.1 - 44.9 % MCV 97 (H) 79 - 95 fL MCH 30.6 25.6 - 32.2 pg MCHC 31.4 (L) 32.2 - 35.5 GM/DL RDW 17.5 (H) 11.7 - 14.4 % Platelets 55 (L) 140 - 375 K/CU MM MPV 10.0 9.4 - 12.3 fL % Neutros 79 (H) 34 - 71 % % Lymphs 13 (L) 19 - 52 % % Monos 6 5 - 13 % % Eos 0 (L) 1 - 6 % % Baso 0 0 - 1 % NRBC Absolute <0.01 0 - 0.012 K/ul # Neutros 2.22 1.56 - 6.13 K/??L # Lymphs 0.37 (L) 1.18 - 3.74 K/??L # Monos 0.18 (L) 0.24 - 0.86 K/??L # Eos <0.03 (L) 0.04 - 0.36 K/ L # Baso <0.03 0.01 - 0.08 K/ L Immature Granulocytes-Relative 0.70 (H) 0.01 - 0.43 % # IG <0.03 0.00 - 0.03 K/uL Radiology Results (last 3 days) Procedure Component Value Units Date/Time CT bone marrow biopsy [[id number]] Collected: 12/02/241523 Order Status: Completed Updated: 12/02/24 8908 Narrative: CT GUIDED BONE MARROW ASPIRATION AND CORE BIOPSY. HISTORY: Pancytopenia. ATTENDING RADIOLOGIST: Dr. Haseeb Gil. PHYSICIAN ELDER ASSISTANT: Sandra Ramsey PA-C PROCEDURE: After informed consent was obtained and a time-out was performed, the patient was prepped and draped in the usual sterile fashion over the left iliac bone. Utilizing local anesthesia and sterile technique with an osteo core system, access to the left iliac bone was obtained. 2 bone marrow aspirations were obtained. Spicules were confirmed. In addition, a bone marrow core was obtained. The patient received minimal conscious sedation. The patient tolerated the procedure well and left the department in good condition. CONSCIOUS SEDATION: 2 mg of IV Versed and 50 mcg of Fentanyl were administered. Continuous vital sign monitoring was used. An RN was present during the sedation process. Overall sedation time was 30 minutes. Impression: Status post CT guided biopsy bone marrow aspiration and core biopsy without immediate complication. Images reviewed, interpreted, and dictated by Dr. Haseeb Gil. Transcribed by Sandra Ramsey PA-C. Ultrasound liver [[id number]] Collected: 11/30/24 164 Order Status: Completed Updated: 11/30/241654 Narrative: CLINICAL INDICATION: Abdominal pain. Assess HCC TECHNIQUE: Multiplanar grayscale and color ultrasound images of the right upper quadrant of the abdomen were obtained. COMPARISON: Ultrasound 11/30/2024. FINDINGS: Quality: Adequate. Visualized Pancreas: Partial imaging of the pancreas is unremarkable. Liver: The liver parenchyma is coarse and heterogenous consistent with parenchymal disease. This limits the visualization of focal hepatic lesions however there are no sonographically detectable focal liver lesions. Nodular contour of the liver, suggestive of cirrhosis. Liver is small in size, measuring 11.4 cm. Portal vein is patent with appropriate flow and directionality. Mildly dilated portal vein, measuring 12 mm in diameter. Hepatic veins are patent with appropriate flow and directionality. Gallbladder: Prior cholecystectomy. Bile Ducts: No intrahepatic biliary ductal dilatation. No extrahepatic biliary ductal dilatation. The common bile duct is normal in size and measuring 4.2 mm in diameter. Fluid survey: Small amount of perihepatic ascites. Impression: Cirrhosis. No focal liver lesions identified. Small volume perihepatic ascites. CRITICAL RESULT: No. COMMUNICATION: Per this written report. Images personally reviewed, interpreted and dictated by SABINE Yang. US paracentesis [[id number]] Collected: 11/30/24 1637 Order Status: Completed Updated: 11/30/241654 Narrative: ULTRASOUND-GUIDED PARACENTESIS HISTORY: Ascites ATTENDING PHYSICIAN: Dr. Haseeb Gil PHYSICIAN ELDER ASSISTANT: Gabriel Velasco PA-C FINDINGS: After informed consent was obtained and timeout procedure performed, fluid was localized in the right lower quadrant under ultrasound guidance and marked on the skin appropriately. The patient was then prepped and draped in the usual sterile fashion and the skin was anesthetized with 1% Lidocaine. An ultrasound guided paracentesis was then performed using a Turkel needle. Approximately 6 liters of clear yellow fluid was removed. 80 mL was sent to lab. The patient tolerated the procedure well and there were no immediate complications. Impression: Ultrasound guided right lower quadrant paracentesis as discussed above. 6 liters of clear yellow fluid was removed. Images reviewed, interpreted, and dictated by Dr. Haseeb Gil. Transcribed by Gabriel Velasco PA-C. Ultrasound renal limited [[id number]] Collected: 11/30/24 1646 Order Status: Completed Updated: 11/30/24 164 Narrative: RENAL ULTRASOUND HISTORY: Renal failure PROCEDURE: Sonographic images of the kidneys were obtained in both longitudinal and transverse orientations. FINDINGS: Limited images of the liver parenchyma demonstrate normal echogenicity. The right kidney measures 9.5 cm in length. It has normal echogenicity. There is no hydronephrosis. The left kidney measures 11.0 cm in length. It has normal echogenicity. There is no hydronephrosis. Impression: Normal renal ultrasound. Images reviewed, interpreted, and dictated by Ronnell Tom MD XR chest AP portable [[id number]] Collected: 11/30/24 1215 Order Status: Completed Updated: 11/30/24 1222 Narrative: PORTABLE CHEST 11/30/2024 11:29 AM HISTORY: Hypertension, decompensated cirrhosis. COMPARISON: None. FINDINGS: The heart is proper size. The mediastinum is unremarkable. Prominent perihilar interstitial changes are noted, likely secondary to vascular congestion. There is no pneumothorax. The osseous structures are unremarkable. Impression: Prominent interstitial changes are likely secondary to vascular congestion. Continued follow-up is recommended. Images reviewed, interpreted, and dictated by Dr. Jose C Calhoun. Transcribed by Marielos Sotelo PA-C. Electronically signed by: Destiney Llanes APRN, 12/03/2024 at 10:15 AM Cosigned by Scott Daley MD at 12/03/2024 2:22 PM EDT * Timothy Bai MD - 12/03/2024 8:52 AM EDT Subjective Patient is seen and examined at bedside, no acute overnight events . Feeling better this morning. Her abdominal distention has improved. Review of Systems Constitutional: Positive for fatigue. Respiratory: Negative. Cardiovascular: Negative. Gastrointestinal: Positive for abdominal distention. Musculoskeletal: Negative. Objective Last Recorded Vitals Blood pressure (!) 147/60, pulse 90, temperature 98 ??F (36.7 ??C), temperature source Oral, resp. rate 18, height 1.676 m (5' 6 ), weight 102.3 kg (225 lb 8 oz), SpO2 100%. Physical Exam Constitutional: Appearance: She is obese. She is ill-appearing. HENT: Head: Normocephalic. Eyes: Pupils: Pupils are equal, round, and reactive to light. Cardiovascular: Rate and Rhythm: Normal rate and regular rhythm. Pulmonary: Effort: Pulmonary effort is normal. Breath sounds: Normal breath sounds. Abdominal: General: Bowel sounds are normal. There is distension. Palpations: Abdomen is soft. Musculoskeletal: Right lower leg: Edema present. Left lower leg: Edema present. Skin: General: Skin is dry. Coloration: Skin is pale. Neurological: Mental Status: She is alert. Mental status is at baseline. Labs: Results for orders placed or performed during the hospital encounter of 11/30/24 (from the past 24 hours) Prepare RBC: 1 Units Status: None Collection Time: 12/02/24 9:36 AM Result Value Ref Range Issue Date/Time [id number] Product Identification Red Blood Cells Product Code S0058S37 Status Information Transfused Unit Number [id number] Blood Type 5100 Cross Match Results Compatible Glucose, Nova Meter Status: Abnormal Collection Time: 12/02/24 12:51 PM Result Value Ref Range POC-GLUCOSE 112 (H) 70 - 110 mg/dL Laboratory Scientist [id number] Glucose, Nova Meter Status: Abnormal Collection Time: 12/02/24 5:18 PM Result Value Ref Range POC-GLUCOSE 128 (H) 70 - 110 mg/dL Laboratory Scientist [id number] Hemoglobin Status: Abnormal Collection Time: 12/02/24 6:03 PM Result Value Ref Range Hemoglobin 9.1 (L) 11.2 - 15.7 GM/DL Glucose, Nova Meter Status: Abnormal Collection Time: 12/02/24 8:06 PM Result Value Ref Range POC-GLUCOSE 144 (H) 70 - 110 mg/dL Laboratory Scientist [id number] Hemoglobin Status: Abnormal Collection Time: 12/02/24 11:06 PM Result Value Ref Range Hemoglobin 8.9 (L) 11.2 - 15.7 GM/DL Glucose, Nova Meter Status: Abnormal Collection Time: 12/03/24 1:10 AM Result Value Ref Range POC-GLUCOSE 164 (H) 70 - 110 mg/dL Laboratory Scientist [id number] Glucose, Nova Meter Status: Abnormal Collection Time: 12/03/24 1:12 AM Result Value Ref Range POC-GLUCOSE 168 (H) 70 - 110 mg/dL Laboratory Scientist [id number] Glucose, Nova Meter Status: Abnormal Collection Time: 12/03/24 5:13 AM Result Value Ref Range POC-GLUCOSE 142 (H) 70 - 110 mg/dL Laboratory Scientist [id number] Magnesium Status: Normal Collection Time: 12/03/24 7:39 AM Result Value Ref Range Magnesium 2.5 1.6 - 2.6 mg/dL Comprehensive Metabolic Panel Status: Abnormal Collection Time: 12/03/24 7:39 AM Result Value Ref Range Sodium 147 (H) 136 - 145 meq/L Potassium 4.1 3.4 - 5.1 meq/L Chloride 119 (H) 98 - 112 meq/L CO2 20 (L) 22 - 29 meq/L Calcium 8.3 (L) 8.4 - 10.2 mg/dL Glucose 145 (H) 82 - 115 mg/dL BUN 53.7 (H) 9.8 - 20.1 mg/dL Creatinine 3.48 (H) 0.57 - 1.11 mg/dL BUN/Creatinine 15 8 - 20 eGFR (mL/min/1.73m2) 14 (L) >=60 mL/min/1.73m2 Albumin 4.4 3.5 - 5.0 g/dL Alkaline Phosphatase 49 40 - 150 U/L ALT 7 <=34 U/L AST 21 11 - 34 U/L Total Bilirubin 1.1 0.2 - 1.2 mg/dL Protein, Total 6.8 6.4 - 8.3 g/dL Globulin 2.4 (L) 2.5 - 4.1 g/dL Anion Gap 12 4 - 12 A/G Ratio 1.8 0.7 - 1.9 Osmolality Calc 309.7 mOsm/kg Ammonia Status: Normal Collection Time: 12/03/24 7:39 AM Result Value Ref Range Ammonia 36 18 - 72 ??mol/L CT bone marrow biopsy Narrative: CT GUIDED BONE MARROW ASPIRATION AND CORE BIOPSY. HISTORY: Pancytopenia. ATTENDING RADIOLOGIST: Dr. Haseeb Gil. PHYSICIAN ELDER ASSISTANT: Sandra Ramsey PA-C PROCEDURE: After informed consent was obtained and a time-out was performed, the patient was prepped and draped in the usual sterile fashion over the left iliac bone. Utilizing local anesthesia and sterile technique with an osteo core system, access to the left iliac bone was obtained. 2 bone marrow aspirations were obtained. Spicules were confirmed. In addition, a bone marrow core was obtained. The patient received minimal conscious sedation. The patient tolerated the procedure well and left the department in good condition. CONSCIOUS SEDATION: 2 mg of IV Versed and 50 mcg of Fentanyl were administered. Continuous vital sign monitoring was used. An RN was present during the sedation process. Overall sedation time was 30 minutes. Impression: Status post CT guided biopsy bone marrow aspiration and core biopsy without immediate complication. Images reviewed, interpreted, and dictated by Dr. Haseeb Gil. Transcribed by Sandra Ramsey PA-C. Assessment and plan: This is a 64 years old female who was transferred from outside hospital to be evaluated by nephrology for GERMÁN, she was noted to have abdominal distention and bilateral lower extremities edema upon admission. #Nonalcoholic liver cirrhosis with ascites - S/p paracentesis on 11/30 with 6 L removed, fluid cultures are negative, patient is on po rifaximinand lactulose, will monitor CMP daily, GI did EGD on 12/01 that showed : EV Retained food Duodenal ulcer GI recommended : BID PPI x 8 weeks. Repeat EGD in 8-12 weeks to assess varices outside of acute episode. Abx for no more than 5 days for motility benefit in cirrhotic bleeding. Clear liquid diet today. Plan: - Will continue IV Protonix twice daily - Will continue lactulose and monitor ammonia level daily - Will continue IV Rocephin for 5 days total for SBP prophylaxis #Anasarca likely secondary to hepatorenal syndrome #GERMÁN -Nephrology input is appreciated, holding Lasix and Aldactone, patient is receiving albumin , avoidnephrotoxic agent and renally dose medications, monitor BMP and electrolytes daily -Creatinine is trending down to 3.48 today #Diabetes: Holding metformin, continue insulin sliding scale and monitor blood glucose per protocol #Hyperlipidemia: Holding statin due to abnormal LFTs, will monitor CMP daily #Pancytopenia: -Hemoglobin is trending up to 8.2 today, patient received 2 units of PRBCs , will monitor H&H every 8 hours and transfuse for hemoglobin less than 7 - No chemical DVT prophylaxis due to thrombocytopenia - Hematology is consulted and IR did bone marrow biopsy on 12/02 #Vitamin D deficiency: Will continue on p.o. vitamin D supplementation weekly #Will continue mechanical DVT prophylaxis MDM: Labs and images are noted and reviewed, monitor labs and electrolytes daily. Plan as detailed above. Discussed with nursing staff . Discharge disposition: PT/OT is consulted, likely home with home health pending clinical improvement and improvement in creatinine * Jalen Woodward OTR/Amada - 12/03/2024 8:39 AM EDT Images from the original note were not included. Inpatient Occupational Therapy Treatment Note Patient Name: Mary Coronel Date of : 1960 Date of Treatment: 12/03/24 Start Time: 838 Stop Time: 922 Session Duration: 44 minutes This patient is a 64 y.o. female admitted on 11/30/2024 with Anasarca [R60.1]. Past Medical History: Diagnosis Date Cirrhosis, non-alcoholic (HCC) Diabetes mellitus (HCC) Hypertension Past Surgical History: Procedure Laterality Date ESOPHAGOGASTRODUODENOSCOPY (EGD),REMOVAL FOREIGN BODY N/A 12/01/2024 Procedure: EGD, WITH FOREIGN BODY REMOVAL; Surgeon: Scott Daley MD; [facility]; Service: Gastroenterology; Laterality: N/A; General Visit type: Treatment Approved by: Nurse Shepherd Patient disposition upon entry: Patient verified by name, Patient verified by date of , Supinein bed, All needs met and within reach, Call light/pull cord in reach, Head of bed >30 degrees, Nursing at bedside, Side rails up Precautions Weightbearing status: No restrictions Precautions: Fall risk Isolation precautions: Standard LDA/Brace/Protective equipment: Lines, drains, and airways: blood pressure cuff, peripheral IV, telemetry , purewick Subjective Subjective: Pt agreeable Pain No-patient has no complaints of pain Cognition Cognition: Arousal/alertness: Appropriate response to stimuli Orientation level: Oriented to time, Oriented to situation, Oriented to person, Disoriented to place Following commands: Follows all commands and directions without difficulty Safety judgment: Decreased awareness of need for assistance Decreased awareness of need for safety Objective Vitals Pre-intervention vitals Heart rate: 94 beats per minute Blood pressure: 145/65 mmHg SpO2: 98% O2: 3 (L/min) nasal cannula Post-intervention vitals Heart rate: 100 beats per minute Blood pressure: 158/74 mmHg SpO2: 100% O2 : 3 (L/min) nasal cannula Bed Mobility Supine to sit: Standby assist, Head of bed elevated, Use of bedrails Transfers Sit to stand:Contact guard, Gait belt used, Rolling walker used Bedside commode transfer:Contact guard, Gait belt used, Rolling walker used Stand pivot transfer: Contact guard, Gait belt used, Rolling walker used, Comment: to bedside chair ADLs Bathing:Minimal Assistance, Seated in chair, with intermittent standing supported at for completion of sponge bath Upper body dressing:Standby Assist, Seated in chair Lower body dressing:Standby Assist, Seated in chair, to don socks Toileting:Minimal Assistance, for completion of toilet hygiene in standing supported at RW Balance Static sitting balance:Good: Patient able to maintain balance without handheld support; limited postural sway Dynamic sitting balance:Fair: Patient accepts minimal challenge; able to maintain balance while turning head/trunk Static standing balance:Fair: Patient able to maintain balance with handheld support, may require occasional minimal assistance Dynamic standing balance:Fair: Patient accepts minimal challenge; able to maintain balance while turning head/trunk Activity Tolerance Patient limited with activity/intervention due to fatigue, deconditioning, and weakness Therapeutic Exercise UE therapeutic exercise AROM, Shoulder flexion, Elbow flexion, Elbow extension , All exercises performed for 1 set of 10 reps LE therapeutic exercise AROM, ankle pumps, long-arc quad, All performed for 1 set of 10 reps Treatment Pt was supine in bed upon therapist's arrival; agreeable to participate with therapy. Pt requested to toilet. Pt completed supine to sit EOB with SBA. Pt completed sit to stand with CGA and completedstand pivot to BSC supported at with CGA. Pt required increased time for toileting and required Min A to complete toilet hygiene tasks in standing supported at . The pt completed transfer to bedside chair supported at with CGA. She completed UB and LB spongebath sitting with intermittent standing requiring Min A for completion. She donned new gown with SBA seated. Pt required SBA to doff/don B socks seated in chair. Pt participated with BUE and BLE TE. She tolerated session well this date. Assessment Assessment Patient demonstrated improved performance during this treatment session. Patient continues to present with decreased endurance, decreased balance, decreased safety awareness. These deficits currentlyimpact the patient's ability to perform ADLs and functional mobility, putting them at an increased risk for increased falls, decreased quality of life, further functional decline, further decreased strength, increased caregiver burden, other medical complications. Patient will benefit from continued OT services to address the aforementioned functional deficits. Plan Recommendations Discharge recommendations: Discharge recommendations pending progression of acute hospital stay secondary to the patient's medical status DME recommendations: Unable to make adaptive/DME recommendations at this time. Treatment Plan: Continue OT POC OT Frequency/Duration: 3x/week for 14 days Goals Grooming: face washing, standing with standby assist Lower body dressing: donning and doffing lower body clothing with standby assist. Toileting: toileting with contact guard assist. Functional transfers: stand pivot transfer with standby assist. HEP: The pt will demonstrate ability to complete BUE HEP to increase/maintain BUE strength to promote independence with ADL tasks. Goals were discussed with patient Progress towards goals: progressing Education Patient educated on safety, use of call light, role of occupational therapy, ADLs, functional mobility and following, they were able to verbalize understanding. Interdisciplinary Communication Following treatment, therapist communicated with nursing regarding patient's performance during therapy session. Patient Disposition Upon Leaving Patient Disposition: Sitting in bedside chair, All needs met and within reach, Call light/pull cordin reach, Feet elevated, Nursing aware/notified If this patient discharges prior to next therapy session, this note serves as the patient's discharge summary. Electronically signed by NBA Gaona - 12/03/2024 - 3:24 PM EDT * Cora Wiseman RN - 12/03/2024 7:30 AM EDT Received bedside report. VSS, NAD. Pt states she is feeling better this morning 1000 Pt having freq runs of Vtach 10 beat runs. Pt sleeping and not symptomatic. 1200 Pt continues to have freq runs of Vtach followed by short burst of Afib. EKG showing NSR. EP Consulted and notified. 1400 Pt c/o SOB. Pt assisted back to bed. 1420 Pt in Afib w/RVR and c/o SOB. EP PROCUREMENT SPECIALIST notified.New orders taken. IV Amio 150mg bolus given. 1430 Dr Blas batista to transfer pt to ICU 1445 Pt transferred to CCU-bed 7. Report called to CCU RN. Transferred via bed, with monitor, O2 * Laura Batista MD - 12/02/2024 3:42 PM EDT Hematology Oncology Follow Up Note History of Present Illness: Patient was seen and examined today. He denied any new complaint except being more tired and somnolent. She underwent bone marrow biopsy and aspirate earlier today. Past Medical History: Diagnosis Date Cirrhosis, non-alcoholic (HCC) Diabetes mellitus (HCC) Hypertension Past Surgical History: Procedure Laterality Date ESOPHAGOGASTRODUODENOSCOPY (EGD),REMOVAL FOREIGN BODY N/A 12/01/2024 Procedure: EGD, WITH FOREIGN BODY REMOVAL; Surgeon: Scott Daley MD; [facility]; Service: Gastroenterology; Laterality: N/A; Allergies: Patient has no known allergies. Medications: Current Outpatient Medications Medication Instructions albuterol 90 mcg/actuation inhaler 1 puff, inhalation, Every 6 hours PRN ammonium lactate (AMLACTIN) 1 g, topical, As needed aspirin 81 mg, oral, Daily atorvastatin (LIPITOR) 20 mg, oral, Every Night bisoprolol (ZEBETA) 10 mg, oral, 2 times daily cholecalciferol (VITAMIN D3) 10,000 Units, oral, Daily clopidogreL (PLAVIX) 75 mg, oral, Daily, Look-alike/Sound-alike medication colestipoL (COLESTID) 2 g, oral, Daily dicyclomine (BENTYL) 10 mg, oral, 2 times daily furosemide (LASIX) 40 mg, oral, 2 times daily gabapentin (NEURONTIN) 800 mg, oral, 3 times daily HYDROcodone-acetaminophen (NORCO) 10-325 mg per tablet 1 tablet, oral, Every 6 hours PRN hydrOXYzine pamoate (VISTARIL) 50 mg, oral, Every Night PRN, Look-alike/Sound-alike medication insulin aspart U-100 (NovoLOG) 100 unit/mL (3 mL) inpn subcutaneous, 4 times daily (before meals and nightly) lisinopriL (ZESTRIL) 10 mg, oral, 2 times daily metFORMIN (GLUCOPHAGE) 1,000 mg, oral, 2 times daily with breakfast and dinner, Look-alike/Sound-alike medication tirzepatide 7.5 mg, subcutaneous, Every 7 days triamcinolone (KENALOG) 0.1 % topical cream 0.1 Applications, topical, Daily, to affected area. Review of Symptoms: Review of Systems Constitutional: Positive for malaise/fatigue. HENT: Negative. Eyes: Negative. Respiratory: Negative. Cardiovascular: Negative. Gastrointestinal: Positive for abdominal pain. Genitourinary: Negative. Musculoskeletal: Negative. Skin: Negative. Neurological: Negative. Endo/Heme/Allergies: Negative. Psychiatric/Behavioral: Negative. Vitals Vitals: 12/02/24 1205 12/02/24 1251 12/02/24 1315 12/02/24 1336 BP: 137/77 (!) 129/95 (!) 129/95 (!) 153/71 BP Location: Left arm Patient Position: Lying Pulse: 102 102 105 Resp: 16 14 16 Temp: 97.7 ??F (36.5 ??C) 98.1 ??F (36.7 ??C) 98.1 ??F (36.7 ??C) TempSrc: Oral Oral Oral SpO2: 98% 98% 97% Weight: Height: Gain/Loss Since Last Wt (Kgs): -2 kg Physical Exam Vitals reviewed. Constitutional: Appearance: She is ill-appearing. HENT: Head: Normocephalic. Mouth/Throat: Mouth: Mucous membranes are moist. Pharynx: Oropharynx is clear. Eyes: Pupils: Pupils are equal, round, and reactive to light. Cardiovascular: Rate and Rhythm: Normal rate and regular rhythm. Pulmonary: Breath sounds: Normal breath sounds. Abdominal: General: Abdomen is flat. Palpations: Abdomen is soft. Musculoskeletal: Cervical back: Normal range of motion and neck supple. Lymphadenopathy: Cervical: No cervical adenopathy. Right cervical: No superficial or posterior cervical adenopathy. Left cervical: No superficial or posterior cervical adenopathy. Upper Body: Right upper body: No supraclavicular or axillary adenopathy. Left upper body: No supraclavicular or axillary adenopathy. Lower Body: No right inguinal adenopathy. No left inguinal adenopathy. Skin: Coloration: Skin is not jaundiced. Neurological: Mental Status: She is alert. Relevant Results: WBC Date Value Ref Range Status 12/02/2024 3.0 (L) 4.0 - 10.0 K/??L Final 12/01/2024 1.7 (LL) 4.0 - 10.0 K/??L Final 11/30/2024 1.9 (LL) 4.0 - 10.0 K/??L Final RBC Date Value Ref Range Status 12/02/2024 2.43 (L) 3.93 - 5.22 M/??L Final 12/01/2024 2.15 (L) 3.93 - 5.22 M/??L Final 11/30/2024 2.63 (L) 3.93 - 5.22 M/??L Final Hemoglobin Date Value Ref Range Status 12/02/2024 7.3 (L) 11.2 - 15.7 GM/DL Final 12/02/2024 7.4 (L) 11.2 - 15.7 GM/DL Final 12/02/2024 7.6 (L) 11.2 - 15.7 GM/DL Final Hematocrit Date Value Ref Range Status 12/02/2024 23.4 (L) 34.1 - 44.9 % Final 12/02/2024 24.2 (L) 34.1 - 44.9 % Final 12/01/2024 21.6 (L) 34.1 - 44.9 % Final Platelets Date Value Ref Range Status 12/02/2024 57 (L) 140 - 375 K/CU MM Final 12/01/2024 54 (L) 140 - 375 K/CU MM Final 11/30/2024 64 (L) 140 - 375 K/CU MM Final Chemistry Component Value Date/Time NA 146 (H) 12/02/2024 0338 K 4.2 12/02/2024 0338 CL 118 (H) 12/02/2024 0338 CO2 19 (L) 12/02/2024 033 BUN 55.1 (H) 12/02/2024337 CREATININE 3.55 (H) 12/02/2024 0338 Component Value Date/Time CALCIUM 7.9 (L) 12/02/2024 0338 ALKPHOS 49 12/02/2024 0338 AST 32 12/02/2024 0338 ALT 8 12/02/2024 0338 BILITOT 0.9 12/02/2024 0338 Radiology Results (last 7 days) Procedure Component Value Units Date/Time CT bone marrow biopsy [[id number]] Collected: 12/02/24 152 Order Status: Completed Updated: 12/02/241525 Narrative: CT GUIDED BONE MARROW ASPIRATION AND CORE BIOPSY. HISTORY: Pancytopenia. ATTENDING RADIOLOGIST: Dr. Haseeb Gil. PHYSICIAN ELDER ASSISTANT: Sandra Ramsey PA-C PROCEDURE: After informed consent was obtained and a time-out was performed, the patient was prepped and draped in the usual sterile fashion over the left iliac bone. Utilizing local anesthesia and sterile technique with an osteo core system, access to the left iliac bone was obtained. 2 bone marrow aspirations were obtained. Spicules were confirmed. In addition, a bone marrow core was obtained. The patient received minimal conscious sedation. The patient tolerated the procedure well and left the department in good condition. CONSCIOUS SEDATION: 2 mg of IV Versed and 50 mcg of Fentanyl were administered. Continuous vital sign monitoring was used. An RN was present during the sedation process. Overall sedation time was 30 minutes. Impression: Status post CT guided biopsy bone marrow aspiration and core biopsy without immediate complication. Images reviewed, interpreted, and dictated by Dr. Haseeb Gil. Transcribed by Sandra Ramsey PA-C. Ultrasound renal limited [[id number]] Collected: 11/30/24 164 Order Status: Completed Updated: 11/30/241648 Narrative: RENAL ULTRASOUND HISTORY: Renal failure PROCEDURE: Sonographic images of the kidneys were obtained in both longitudinal and transverse orientations. FINDINGS: Limited images of the liver parenchyma demonstrate normal echogenicity. The right kidney measures 9.5 cm in length. It has normal echogenicity. There is no hydronephrosis. The left kidney measures 11.0 cm in length. It has normal echogenicity. There is no hydronephrosis. Impression: Normal renal ultrasound. Images reviewed, interpreted, and dictated by Ronnell Tom MD Ultrasound liver [[id number]] Collected: 11/30/24 164 Order Status: Completed Updated: 11/30/241654 Narrative: CLINICAL INDICATION: Abdominal pain. Assess HCC TECHNIQUE: Multiplanar grayscale and color ultrasound images of the right upper quadrant of the abdomen were obtained. COMPARISON: Ultrasound 11/30/2024. FINDINGS: Quality: Adequate. Visualized Pancreas: Partial imaging of the pancreas is unremarkable. Liver: The liver parenchyma is coarse and heterogenous consistent with parenchymal disease. This limits the visualization of focal hepatic lesions however there are no sonographically detectable focal liver lesions. Nodular contour of the liver, suggestive of cirrhosis. Liver is small in size, measuring 11.4 cm. Portal vein is patent with appropriate flow and directionality. Mildly dilated portal vein, measuring 12 mm in diameter. Hepatic veins are patent with appropriate flow and directionality. Gallbladder: Prior cholecystectomy. Bile Ducts: No intrahepatic biliary ductal dilatation. No extrahepatic biliary ductal dilatation. The common bile duct is normal in size and measuring 4.2 mm in diameter. Fluid survey: Small amount of perihepatic ascites. Impression: Cirrhosis. No focal liver lesions identified. Small volume perihepatic ascites. CRITICAL RESULT: No. COMMUNICATION: Per this written report. Images personally reviewed, interpreted and dictated by SABINE Yang. US paracentesis [[id number]] Collected: 11/30/24 1637 Order Status: Completed Updated: 11/30/24 1655 Narrative: ULTRASOUND-GUIDED PARACENTESIS HISTORY: Ascites ATTENDING PHYSICIAN: Dr. Haseeb Gil PHYSICIAN ELDER ASSISTANT: Gabriel Velasco PA-C FINDINGS: After informed consent was obtained and timeout procedure performed, fluid was localized in the right lower quadrant under ultrasound guidance and marked on the skin appropriately. The patient was then prepped and draped in the usual sterile fashion and the skin was anesthetized with 1% Lidocaine. An ultrasound guided paracentesis was then performed using a Turkel needle. Approximately 6 liters of clear yellow fluid was removed. 80 mL was sent to lab. The patient tolerated the procedure well and there were no immediate complications. Impression: Ultrasound guided right lower quadrant paracentesis as discussed above. 6 liters of clear yellow fluid was removed. Images reviewed, interpreted, and dictated by Dr. Haseeb Gil. Transcribed by Gabriel Velasco PA-C. XR chest AP portable [[id number]] Collected: 11/30/24 1215 Order Status: Completed Updated: 11/30/24 1222 Narrative: PORTABLE CHEST 11/30/2024 11:29 AM HISTORY: Hypertension, decompensated cirrhosis. COMPARISON: None. FINDINGS: The heart is proper size. The mediastinum is unremarkable. Prominent perihilar interstitial changes are noted, likely secondary to vascular congestion. There is no pneumothorax. The osseous structures are unremarkable. Impression: Prominent interstitial changes are likely secondary to vascular congestion. Continued follow-up is recommended. Images reviewed, interpreted, and dictated by Dr. Jose C Calhoun. Transcribed by Marielos Sotelo PA-C. US renal complete [[id number]] Order Status: Canceled Assessment Pancytopenia. She had bone marrow biopsy and aspirate done earlier today. Her hemoglobin today was 7.4 g/dL, white blood count 3000 and platelets 57,000. She is undergoing blood transfusion when I saw her. Plan I will see her in the clinic in about a week to discuss the result of the bone marrow biopsy and aspirate. Please consider blood and platelet transfusion as needed. He is currently if you have any questions. We will continue to follow-up. Signed: Electronically signed by Laura Batista MD 12/02/2024 3:42 PM EDT * Brandan Kerr, PT - 12/02/2024 2:10 PM EDT Images from the original note were not included. Inpatient Physical Therapy Attempt to Treat Patient Name: Mary Coronel Birthday: 1960 Date of Attempt: 12/02/2024 Pt on bedrest per DAYANARA Shepherd. Had biopsy earlier today and is now receiving blood transfusion. PT will follow up as time permits. Electronically signed by Brandan Kerr, PT - 12/02/2024 - 3:32 PM EDT * Destiney Llanes, ELECTRIC REFRIGERATOR SERVICER - 12/02/2024 10:15 AM EDT Name: Mary Coronel Admit Date: 11/30/2024 LOS: 2 days Location:[address] [place] [address] PCP on file: [facility] Find-a-Doc Principal Problem: Anasarca ASSESSMENT & PLAN for 12/02/2024 Principal Problem: Anasarca Assessment: 64 y/o with history of NAFLD presents to our facility w/ increased abdominal distention and LLE. Found to have increased renal function and pancytopenia. She denies alcohol use. She previously saw for NAFLD but never follow up after 2021. S/p EGD yesterday showing duodenal ulcer and small varices. 12/02/2024: Fluid studies negative. No SBP. Cytology pending. Hgb still low. Oncology planning bone marrow biopsy. Still with GERMÁN. Nephrology following. -PRN paracentesis until diuretics can be ordered -Monitor stools. -Trend H/H, transfuse <7. Hem/onc following pancytopenia SUBJECTIVE: Mary Coronel just returned from bone marrow biopsy. Sleepy. Review of systems: Review of Systems All other systems reviewed and are negative. OBJECTIVE: Vitals Temp: 98.1 ??F (36.7 ??C) - BP: (!) 120/92 - Pulse: 182 - Resp: 16 - SpO2: 98 % Temp Min: 97 ??F (36.1 ??C) Max: 98.2 ??F (36.8 ??C) I / O I/O last 3 completed shifts: In: 830 [P.O.:360; I.V.:400; Blood:70] Out: - Weight / BMI Recent weight: @FLOWDT(14::1)@ - Body mass index is 35.67 kg/m??. Admit weight: 102.1 kg (225 lb) [place] - Gault (eCrCl) Estimated Creatinine Clearance: 15.4 mL/min (A) (by C-G formula based on SCr of 3.55 mg/dL (H)). Physical Exam Constitutional: General: She is sleeping. Cardiovascular: Rate and Rhythm: Normal rate. Pulmonary: Effort: Pulmonary effort is normal. Abdominal: General: Abdomen is flat. There is distension. Palpations: Abdomen is soft. Data: Results for orders placed or performed during the hospital encounter of 11/30/24 (from the past 24 hours) Glucose, Nova Meter Status: None Collection Time: 12/01/24 10:32 AM Result Value Ref Range POC-GLUCOSE 100 70 - 110 mg/dL Laboratory Scientist [id number] Hemoglobin Status: Abnormal Collection Time: 12/01/24 3:33 PM Result Value Ref Range Hemoglobin 8.0 (L) 11.2 - 15.7 GM/DL Glucose, Nova Meter Status: Abnormal Collection Time: 12/01/24 4:25 PM Result Value Ref Range POC-GLUCOSE 115 (H) 70 - 110 mg/dL Laboratory Scientist [id number] Glucose, Nova Meter Status: Abnormal Collection Time: 12/01/24 7:34 PM Result Value Ref Range POC-GLUCOSE 128 (H) 70 - 110 mg/dL Laboratory Scientist [id number] Hemoglobin Status: Abnormal Collection Time: 12/02/24 12:04 AM Result Value Ref Range Hemoglobin 7.7 (L) 11.2 - 15.7 GM/DL CBC - Hemogram (SJ-BKR) Status: Abnormal Collection Time: 12/02/24 3:38 AM Result Value Ref Range WBC 3.0 (L) 4.0 - 10.0 K/??L RBC 2.43 (L) 3.93 - 5.22 M/??L Hemoglobin 7.6 (L) 11.2 - 15.7 GM/DL Hematocrit 24.2 (L) 34.1 - 44.9 % MCV 100 (H) 79 - 95 fL MCH 31.3 25.6 - 32.2 pg MCHC 31.4 (L) 32.2 - 35.5 GM/DL RDW 17.1 (H) 11.7 - 14.4 % Platelets 57 (L) 140 - 375 K/CU MM MPV 10.5 9.4 - 12.3 fL Magnesium Status: Normal Collection Time: 12/02/24 3:38 AM Result Value Ref Range Magnesium 2.5 1.6 - 2.6 mg/dL Comprehensive Metabolic Panel Status: Abnormal Collection Time: 12/02/24 3:38 AM Result Value Ref Range Sodium 146 (H) 136 - 145 meq/L Potassium 4.2 3.4 - 5.1 meq/L Chloride 118 (H) 98 - 112 meq/L CO2 19 (L) 22 - 29 meq/L Calcium 7.9 (L) 8.4 - 10.2 mg/dL Glucose 107 82 - 115 mg/dL BUN 55.1 (H) 9.8 - 20.1 mg/dL Creatinine 3.55 (H) 0.57 - 1.11 mg/dL BUN/Creatinine 16 8 - 20 eGFR (mL/min/1.73m2) 14 (L) >=60 mL/min/1.73m2 Albumin 3.6 3.5 - 5.0 g/dL Alkaline Phosphatase 49 40 - 150 U/L ALT 8 <=34 U/L AST 32 11 - 34 U/L Total Bilirubin 0.9 0.2 - 1.2 mg/dL Protein, Total 6.1 (L) 6.4 - 8.3 g/dL Globulin 2.5 2.5 - 4.1 g/dL Anion Gap 13 (H) 4 - 12 A/G Ratio 1.4 0.7 - 1.9 Osmolality Calc 306.2 mOsm/kg Ammonia Status: Abnormal Collection Time: 12/02/24 3:38 AM Result Value Ref Range Ammonia 74 (H) 18 - 72 ??mol/L Glucose, Nova Meter Status: Abnormal Collection Time: 12/02/24 5:04 AM Result Value Ref Range POC-GLUCOSE 115 (H) 70 - 110 mg/dL Laboratory Scientist [id number] Hemoglobin Status: Abnormal Collection Time: 12/02/24 7:40 AM Result Value Ref Range Hemoglobin 7.3 (L) 11.2 - 15.7 GM/DL Hemoglobin and hematocrit Status: Abnormal Collection Time: 12/02/24 7:40 AM Result Value Ref Range Hemoglobin 7.4 (L) 11.2 - 15.7 GM/DL Hematocrit 23.4 (L) 34.1 - 44.9 % Prepare RBC: 1 Units Status: None (Preliminary result) Collection Time: 12/02/24 9:36 AM Result Value Ref Range Product Identification Red Blood Cells Product Code [id number] Status Information Ready for issue Unit Number [id number] Blood Type 5100 Cross Match Results Compatible Radiology Results (last 3 days) Procedure Component Value Units Date/Time Ultrasound liver [[id number]] Collected: 11/30/24 164 Order Status: Completed Updated: 11/30/241654 Narrative: CLINICAL INDICATION: Abdominal pain. Assess HCC TECHNIQUE: Multiplanar grayscale and color ultrasound images of the right upper quadrant of the abdomen were obtained. COMPARISON: Ultrasound 11/30/2024. FINDINGS: Quality: Adequate. Visualized Pancreas: Partial imaging of the pancreas is unremarkable. Liver: The liver parenchyma is coarse and heterogenous consistent with parenchymal disease. This limits the visualization of focal hepatic lesions however there are no sonographically detectable focal liver lesions. Nodular contour of the liver, suggestive of cirrhosis. Liver is small in size, measuring 11.4 cm. Portal vein is patent with appropriate flow and directionality. Mildly dilated portal vein, measuring 12 mm in diameter. Hepatic veins are patent with appropriate flow and directionality. Gallbladder: Prior cholecystectomy. Bile Ducts: No intrahepatic biliary ductal dilatation. No extrahepatic biliary ductal dilatation. The common bile duct is normal in size and measuring 4.2 mm in diameter. Fluid survey: Small amount of perihepatic ascites. Impression: Cirrhosis. No focal liver lesions identified. Small volume perihepatic ascites. CRITICAL RESULT: No. COMMUNICATION: Per this written report. Images personally reviewed, interpreted and dictated by SABINE Yang. US paracentesis [[id number]] Collected: 11/30/24 1637 Order Status: Completed Updated: 11/30/241654 Narrative: ULTRASOUND-GUIDED PARACENTESIS HISTORY: Ascites ATTENDING PHYSICIAN: Dr. Haseeb Gil PHYSICIAN ELDER ASSISTANT: Gabriel Velasco PA-C FINDINGS: After informed consent was obtained and timeout procedure performed, fluid was localized in the right lower quadrant under ultrasound guidance and marked on the skin appropriately. The patient was then prepped and draped in the usual sterile fashion and the skin was anesthetized with 1% Lidocaine. An ultrasound guided paracentesis was then performed using a Turkel needle. Approximately 6 liters of clear yellow fluid was removed. 80 mL was sent to lab. The patient tolerated the procedure well and there were no immediate complications. Impression: Ultrasound guided right lower quadrant paracentesis as discussed above. 6 liters of clear yellow fluid was removed. Images reviewed, interpreted, and dictated by Dr. Haseeb Gil. Transcribed by Gabriel Velasco PA-C. Ultrasound renal limited [[id number]] Collected: 11/30/24 1646 Order Status: Completed Updated: 11/30/24 164 Narrative: RENAL ULTRASOUND HISTORY: Renal failure PROCEDURE: Sonographic images of the kidneys were obtained in both longitudinal and transverse orientations. FINDINGS: Limited images of the liver parenchyma demonstrate normal echogenicity. The right kidney measures 9.5 cm in length. It has normal echogenicity. There is no hydronephrosis. The left kidney measures 11.0 cm in length. It has normal echogenicity. There is no hydronephrosis. Impression: Normal renal ultrasound. Images reviewed, interpreted, and dictated by Ronnell Tom MD XR chest AP portable [[id number]] Collected: 11/30/24 1215 Order Status: Completed Updated: 11/30/24 1222 Narrative: PORTABLE CHEST 11/30/2024 11:29 AM HISTORY: Hypertension, decompensated cirrhosis. COMPARISON: None. FINDINGS: The heart is proper size. The mediastinum is unremarkable. Prominent perihilar interstitial changes are noted, likely secondary to vascular congestion. There is no pneumothorax. The osseous structures are unremarkable. Impression: Prominent interstitial changes are likely secondary to vascular congestion. Continued follow-up is recommended. Images reviewed, interpreted, and dictated by Dr. Jose C Calhoun. Transcribed by Marielos Sotelo PA-C. Electronically signed by: Destiney Llanes APRN, 12/02/2024 at 10:15 AM Cosigned by Scott Daley MD at 12/03/2024 7:47 AM EDT * Hill Boo MD - 12/02/2024 9:37 AM EDT Subjective No acute events overnight. No new complain Review of Systems No CP, SOA, N/V, fever, chills or rash Objective Last Recorded Vitals Blood pressure 123/78, pulse 95, temperature 98.2 ??F (36.8 ??C), temperature source Oral, resp. rate 18, height 1.676 m (5' 6 ), weight 100.2 kg (221 lb), SpO2 96%. Physical Exam Gen: Alert, NAD HEENT: NC, AT Neck: Supple, no JVD Lungs: CTA. Non labored, symetrical chest expansion CVS: SI/S2 audible. RRR, No M/G noted Abd: soft, NT, ND, BS + Ext: +++ Pedal edema , no cyanosis WALLPAPERER HELPER: Alert, No focal deficit noted grossly Psy: Cooperative Labs: Results for orders placed or performed during the hospital encounter of 11/30/24 (from the past 24 hours) Glucose, Nova Meter Status: None Collection Time: 12/01/24 10:32 AM Result Value Ref Range POC-GLUCOSE 100 70 - 110 mg/dL Laboratory Scientist [id number] Hemoglobin Status: Abnormal Collection Time: 12/01/24 3:33 PM Result Value Ref Range Hemoglobin 8.0 (L) 11.2 - 15.7 GM/DL Glucose, Nova Meter Status: Abnormal Collection Time: 12/01/24 4:25 PM Result Value Ref Range POC-GLUCOSE 115 (H) 70 - 110 mg/dL Laboratory Scientist [id number] Glucose, Nova Meter Status: Abnormal Collection Time: 12/01/24 7:34 PM Result Value Ref Range POC-GLUCOSE 128 (H) 70 - 110 mg/dL Laboratory Scientist [id number] Hemoglobin Status: Abnormal Collection Time: 12/02/24 12:04 AM Result Value Ref Range Hemoglobin 7.7 (L) 11.2 - 15.7 GM/DL CBC - Hemogram (SJ-BKR) Status: Abnormal Collection Time: 12/02/24 3:38 AM Result Value Ref Range WBC 3.0 (L) 4.0 - 10.0 K/??L RBC 2.43 (L) 3.93 - 5.22 M/??L Hemoglobin 7.6 (L) 11.2 - 15.7 GM/DL Hematocrit 24.2 (L) 34.1 - 44.9 % MCV 100 (H) 79 - 95 fL MCH 31.3 25.6 - 32.2 pg MCHC 31.4 (L) 32.2 - 35.5 GM/DL RDW 17.1 (H) 11.7 - 14.4 % Platelets 57 (L) 140 - 375 K/CU MM MPV 10.5 9.4 - 12.3 fL Magnesium Status: Normal Collection Time: 12/02/24 3:38 AM Result Value Ref Range Magnesium 2.5 1.6 - 2.6 mg/dL Comprehensive Metabolic Panel Status: Abnormal Collection Time: 12/02/24 3:38 AM Result Value Ref Range Sodium 146 (H) 136 - 145 meq/L Potassium 4.2 3.4 - 5.1 meq/L Chloride 118 (H) 98 - 112 meq/L CO2 19 (L) 22 - 29 meq/L Calcium 7.9 (L) 8.4 - 10.2 mg/dL Glucose 107 82 - 115 mg/dL BUN 55.1 (H) 9.8 - 20.1 mg/dL Creatinine 3.55 (H) 0.57 - 1.11 mg/dL BUN/Creatinine 16 8 - 20 eGFR (mL/min/1.73m2) 14 (L) >=60 mL/min/1.73m2 Albumin 3.6 3.5 - 5.0 g/dL Alkaline Phosphatase 49 40 - 150 U/L ALT 8 <=34 U/L AST 32 11 - 34 U/L Total Bilirubin 0.9 0.2 - 1.2 mg/dL Protein, Total 6.1 (L) 6.4 - 8.3 g/dL Globulin 2.5 2.5 - 4.1 g/dL Anion Gap 13 (H) 4 - 12 A/G Ratio 1.4 0.7 - 1.9 Osmolality Calc 306.2 mOsm/kg Ammonia Status: Abnormal Collection Time: 12/02/24 3:38 AM Result Value Ref Range Ammonia 74 (H) 18 - 72 ??mol/L Glucose, Nova Meter Status: Abnormal Collection Time: 12/02/24 5:04 AM Result Value Ref Range POC-GLUCOSE 115 (H) 70 - 110 mg/dL Laboratory Scientist [id number] Hemoglobin Status: Abnormal Collection Time: 12/02/24 7:40 AM Result Value Ref Range Hemoglobin 7.3 (L) 11.2 - 15.7 GM/DL Ultrasound liver Narrative: CLINICAL INDICATION: Abdominal pain. Assess HCC TECHNIQUE: Multiplanar grayscale and color ultrasound images of the right upper quadrant of the abdomen were obtained. COMPARISON: Ultrasound 11/30/2024. FINDINGS: Quality: Adequate. Visualized Pancreas: Partial imaging of the pancreas is unremarkable. Liver: The liver parenchyma is coarse and heterogenous consistent with parenchymal disease. This limits the visualization of focal hepatic lesions however there are no sonographically detectable focal liver lesions. Nodular contour of the liver, suggestive of cirrhosis. Liver is small in size, measuring 11.4 cm. Portal vein is patent with appropriate flow and directionality. Mildly dilated portal vein, measuring 12 mm in diameter. Hepatic veins are patent with appropriate flow and directionality. Gallbladder: Prior cholecystectomy. Bile Ducts: No intrahepatic biliary ductal dilatation. No extrahepatic biliary ductal dilatation. The common bile duct is normal in size and measuring 4.2 mm in diameter. Fluid survey: Small amount of perihepatic ascites. Impression: Cirrhosis. No focal liver lesions identified. Small volume perihepatic ascites. CRITICAL RESULT: No. COMMUNICATION: Per this written report. Images personally reviewed, interpreted and dictated by SABINE Yang. US paracentesis Narrative: ULTRASOUND-GUIDED PARACENTESIS HISTORY: Ascites ATTENDING PHYSICIAN: Dr. Haseeb Gil PHYSICIAN ELDER ASSISTANT: Gabriel Velasco PA-C FINDINGS: After informed consent was obtained and timeout procedure performed, fluid was localized in the right lower quadrant under ultrasound guidance and marked on the skin appropriately. The patient was then prepped and draped in the usual sterile fashion and the skin was anesthetized with 1% Lidocaine. An ultrasound guided paracentesis was then performed using a Turkel needle. Approximately 6 liters of clear yellow fluid was removed. 80 mL was sent to lab. The patient tolerated the procedure well and there were no immediate complications. Impression: Ultrasound guided right lower quadrant paracentesis as discussed above. 6 liters of clear yellow fluid was removed. Images reviewed, interpreted, and dictated by Dr. Haseeb Gil. Transcribed by Gabriel Velasco PA-C. Ultrasound renal limited Narrative: RENAL ULTRASOUND HISTORY: Renal failure PROCEDURE: Sonographic images of the kidneys were obtained in both longitudinal and transverse orientations. FINDINGS: Limited images of the liver parenchyma demonstrate normal echogenicity. The right kidney measures 9.5 cm in length. It has normal echogenicity. There is no hydronephrosis. The left kidney measures 11.0 cm in length. It has normal echogenicity. There is no hydronephrosis. Impression: Normal renal ultrasound. Images reviewed, interpreted, and dictated by Ronnell Tom MD XR chest AP portable Narrative: PORTABLE CHEST 11/30/2024 11:29 AM HISTORY: Hypertension, decompensated cirrhosis. COMPARISON: None. FINDINGS: The heart is proper size. The mediastinum is unremarkable. Prominent perihilar interstitial changes are noted, likely secondary to vascular congestion. There is no pneumothorax. The osseous structures are unremarkable. Impression: Prominent interstitial changes are likely secondary to vascular congestion. Continued follow-up is recommended. Images reviewed, interpreted, and dictated by Dr. Jose C Calhoun. Transcribed by Marielos Sotelo PA-C. ECHO COMPLETE (DOPPLER / COLOR) W OR WO CONTRAST TRANSTHORACIC ECHOCARDIOGRAPHY REPORT Demographics Patient Name: RIN JONES : 1960 Age: 64 year(s) Corporate ID Number: [id number] Gender Female Container Repairer: Giovanna Rock Height: 67 inches [facility] Referring Physician: HUEY HURTADO Weight: 225 pounds Interpreting JESSICA RAYMOND MD BMI: 35.24 kg/m^2 Physician: Date of Service: 11/30/2024 Blood Pressure: 118/59 mmHg Room Number: 579 Type of Study: TTE procedure: ECHO COMPLETE (DOPPLER / COLOR) W OR WO CONTRAST. Patient Status: Routine IP Study Location: PortableTechnical Quality: Adequate visualization History/Tech Notes: Indication: shortness of breath R06.02 Impression: ######################################## Normal sized left ventricle. Normal left ventricular wall thickness. Visually estimated ejection fraction 55% +/- 5%. Borderline systolic strain pattern. Increased left atrial pressure (Grade II diastolic dysfunction). Sclerotic aortic valve leaflets. Trivial pericardial effusion measuring 0.3cm. posteriorly. ######################################## Measurements Summary: LVEDd: 5.33 cm LVESd: 3.64 cm IVSEd: 0.88 cm AO Root:2.7 cm LVPWd: 0.87 cm Contractility Score Normal Left Ventricular contractility was noted. LV regional wall motion: (0-Not visualized 1-Normal 2-Hypokinesis 3-Akinesis 4-Dyskinesis 5-Aneurysm) Left Ventricle Peak E-wave: 1.31 Peak A-wave: 1.35 m/s E/A ratio: 0.97 m/s Volume [id number] LV length: 8.51 cm ml Volume wdjqkevs80.96 ml LVOT diameter: 1.79 cm Normal sized left ventricle. Normal left ventricular wall thickness. Visually estimated ejection fraction 55% +/- 5%. Borderline systolic strain pattern. Increased left atrial pressure (Grade II diastolic dysfunction). No left ventricular masses or thrombi. Right Ventricle Diastolic dimension: 3.92 RV systolic pressure: 28.12 mmHg cm Normal sized right ventricle. Normal TAPSE c/w normal right ventricular function Left Atrium LA dimension: 4 cm LA volume:83.13 ml LA/Aorta: 1.48 Abnormal left atrial volume index 39 ml/m^2. Intact atrial septum. No atrial mass or thrombus. Right Atrium Normal sized right atrium. Intact atrial septum. No atrial mass or thrombus. Mitral Valve Deceleration time: 261.56 msec Thickened mitral valve leaflets. Mild (1+) mitral regurgitation. No mitral stenosis. No masses or vegetations seen. Aortic Valve AV VTI: 53.02 Area continuity: 1.13 Peak velocity: 2.38 m/s cm cm^2 Peak gradient: 22.63 LVOT VTI: 23.85 Mean velocity: 1.76 mmHg cm m/s Mean gradient: 13.56 mmHg Sclerotic aortic valve leaflets. Mildly thickend free edges of the aortic valve leaflets. No aortic regurgitation. No aortic stenosis. No masses or vegetations seen. Tricuspid Valve TR velocity: 2.51 m/s TR gradient: 25.06173 mmHg Estimated RAP: 3 mmHg RVSP: 28.12 mmHg Structurally normal tricuspid valve. Trace tricuspid valve regurgitation. No tricuspid stenosis. No masses or vegetations seen. Pulmonic Valve Acceleration time: 110.37 msec PASP: 28.12 mmHg Structurally normal pulmonic valve. Trace pulmonary valve regurgitation. No pulmonic stenosis. No masses or vegetations seen. Great Vessels Aorta Aortic Root: 2.7 cm LVOT Diameter: 1.79 cm Visualized thoracic aorta is normal. Normal aortic root. No evidence of dissection. Normal IVC with appropriate collapse. Pericardium / Pleura Trivial pericardial effusion measuring 0.3cm. posteriorly. Other Ascites noted in subcostal imaging. Recent Labs Lab(s) Units 12/02/24 0740 12/02/24 0504 12/02/24 0338 12/02/24 0004 12/01/24 1934 12/01/24 1625 12/01/24 1533 12/01/24 0537 12/01/24 0406 12/01/24 0405 11/30/24 0513 11/30/24 0340 NA meq/L -- -- 146* -- -- -- -- -- -- 145 -- 144 K meq/L -- -- 4.2 -- -- -- -- -- -- 4.2 -- 4.6 CL meq/L -- -- 118* -- -- -- -- -- -- 116* -- 115* CO2 meq/L -- -- 19* -- -- -- -- -- -- 20* -- 20* BUN mg/dL -- -- 55.1* -- -- -- -- -- -- 68.3* -- 74.2* CREATININE mg/dL -- -- 3.55* -- -- -- -- -- -- 4.13* -- 4.15* ALBUMIN g/dL -- -- 3.6 -- -- -- -- -- -- 2.8* -- 2.2* GLUCOSE mg/dL -- 115* 107 -- 128* 115* -- < > -- 120* < > 86 CALCIUM mg/dL -- -- 7.9* -- -- -- -- -- -- 8.0* -- 8.3* WBC K/??L -- -- 3.0* -- -- -- -- -- 1.7* -- -- 1.9* PLT K/CU MM -- -- 57* -- -- -- -- -- 54* -- -- 64* HGB GM/DL 7.3* -- 7.6* 7.7* -- -- 8.0* -- 6.7* -- -- 8.2* < > = values in this interval not displayed. Intake/Output Summary (Last 24 hours) at 12/02/2024 0937 Last data filed at 12/01/2024 1103 Gross per 24 hour Intake 760 ml Output -- Net 760 ml Assessment 1- Anasarca - liver disease and low albumin level vs nephrotic syndrome plus NSAID for one month 2- GERMÁN on CKD - Unknown baseline - on Lisinopril at home. Third spacing and recently increased doseof diuretics. Pre-renal azotemia - On lisinopril and NSAID and recently increased dose of diureticswith low albumin level vs HRS- Feurea 27% suggestive of pre-renal azotemia 3- Hypoalbuminemia - UPCR 0.19 -non nephrotic range proteinuria 4- Pancytopenia -Hematology following - S/p EGD 12/01/24showing duodenal ulcer and small varices. 5- hx of DM 6- HTN 7- NAFLD 8- Ascites Plan: - Continue with albumin infusion. - Will give dose of diuretics - Monitor I/O - Avoid nephrotoxic agents - no NSAID - Continue to hold Lisinopril and metformin for GERMÁN - Renal diet - Adjust meds per renal function - No emergent need of PHARMACOMETRICIAN - Monitor H/H and transfuse for Hgb less than 7.0 Discussed with patient * Timothy Bai MD - 12/02/2024 9:37 AM EDT Subjective Patient is seen and examined at bedside, no acute overnight events . She is feeling better, her abdominal distention and legs swelling has improved. Review of Systems Constitutional: Positive for fatigue. Respiratory: Positive for shortness of breath. Cardiovascular: Positive for leg swelling. Gastrointestinal: Positive for abdominal distention. Musculoskeletal: Positive for arthralgias. Objective Last Recorded Vitals Blood pressure 123/78, pulse 95, temperature 98.2 ??F (36.8 ??C), temperature source Oral, resp. rate 18, height 1.676 m (5' 6 ), weight 100.2 kg (221 lb), SpO2 96%. Physical Exam Constitutional: Appearance: She is obese. She is ill-appearing. HENT: Head: Normocephalic. Eyes: Pupils: Pupils are equal, round, and reactive to light. Cardiovascular: Rate and Rhythm: Normal rate and regular rhythm. Pulmonary: Effort: Pulmonary effort is normal. Breath sounds: Normal breath sounds. Abdominal: General: Bowel sounds are normal. There is distension. Palpations: Abdomen is soft. Musculoskeletal: Right lower leg: Edema present. Left lower leg: Edema present. Skin: General: Skin is dry. Coloration: Skin is pale. Neurological: Mental Status: She is alert. Mental status is at baseline. Labs: Results for orders placed or performed during the hospital encounter of 11/30/24 (from the past 24 hours) Glucose, Nova Meter Status: None Collection Time: 12/01/24 10:32 AM Result Value Ref Range POC-GLUCOSE 100 70 - 110 mg/dL Laboratory Scientist [id number] Hemoglobin Status: Abnormal Collection Time: 12/01/24 3:33 PM Result Value Ref Range Hemoglobin 8.0 (L) 11.2 - 15.7 GM/DL Glucose, Nova Meter Status: Abnormal Collection Time: 12/01/24 4:25 PM Result Value Ref Range POC-GLUCOSE 115 (H) 70 - 110 mg/dL Laboratory Scientist [id number] Glucose, Nova Meter Status: Abnormal Collection Time: 12/01/24 7:34 PM Result Value Ref Range POC-GLUCOSE 128 (H) 70 - 110 mg/dL Laboratory Scientist [id number] Hemoglobin Status: Abnormal Collection Time: 12/02/24 12:04 AM Result Value Ref Range Hemoglobin 7.7 (L) 11.2 - 15.7 GM/DL CBC - Hemogram ([id number]) Status: Abnormal Collection Time: 12/02/24 3:38 AM Result Value Ref Range WBC 3.0 (L) 4.0 - 10.0 K/??L RBC 2.43 (L) 3.93 - 5.22 M/??L Hemoglobin 7.6 (L) 11.2 - 15.7 GM/DL Hematocrit 24.2 (L) 34.1 - 44.9 % MCV 100 (H) 79 - 95 fL MCH 31.3 25.6 - 32.2 pg MCHC 31.4 (L) 32.2 - 35.5 GM/DL RDW 17.1 (H) 11.7 - 14.4 % Platelets 57 (L) 140 - 375 K/CU MM MPV 10.5 9.4 - 12.3 fL Magnesium Status: Normal Collection Time: 12/02/24 3:38 AM Result Value Ref Range Magnesium 2.5 1.6 - 2.6 mg/dL Comprehensive Metabolic Panel Status: Abnormal Collection Time: 12/02/24 3:38 AM Result Value Ref Range Sodium 146 (H) 136 - 145 meq/L Potassium 4.2 3.4 - 5.1 meq/L Chloride 118 (H) 98 - 112 meq/L CO2 19 (L) 22 - 29 meq/L Calcium 7.9 (L) 8.4 - 10.2 mg/dL Glucose 107 82 - 115 mg/dL BUN 55.1 (H) 9.8 - 20.1 mg/dL Creatinine 3.55 (H) 0.57 - 1.11 mg/dL BUN/Creatinine 16 8 - 20 eGFR (mL/min/1.73m2) 14 (L) >=60 mL/min/1.73m2 Albumin 3.6 3.5 - 5.0 g/dL Alkaline Phosphatase 49 40 - 150 U/L ALT 8 <=34 U/L AST 32 11 - 34 U/L Total Bilirubin 0.9 0.2 - 1.2 mg/dL Protein, Total 6.1 (L) 6.4 - 8.3 g/dL Globulin 2.5 2.5 - 4.1 g/dL Anion Gap 13 (H) 4 - 12 A/G Ratio 1.4 0.7 - 1.9 Osmolality Calc 306.2 mOsm/kg Ammonia Status: Abnormal Collection Time: 12/02/24 3:38 AM Result Value Ref Range Ammonia 74 (H) 18 - 72 ??mol/L Glucose, Nova Meter Status: Abnormal Collection Time: 12/02/24 5:04 AM Result Value Ref Range POC-GLUCOSE 115 (H) 70 - 110 mg/dL Laboratory Scientist [id number] Hemoglobin Status: Abnormal Collection Time: 12/02/24 7:40 AM Result Value Ref Range Hemoglobin 7.3 (L) 11.2 - 15.7 GM/DL Ultrasound liver Narrative: CLINICAL INDICATION: Abdominal pain. Assess HCC TECHNIQUE: Multiplanar grayscale and color ultrasound images of the right upper quadrant of the abdomen were obtained. COMPARISON: Ultrasound 11/30/2024. FINDINGS: Quality: Adequate. Visualized Pancreas: Partial imaging of the pancreas is unremarkable. Liver: The liver parenchyma is coarse and heterogenous consistent with parenchymal disease. This limits the visualization of focal hepatic lesions however there are no sonographically detectable focal liver lesions. Nodular contour of the liver, suggestive of cirrhosis. Liver is small in size, measuring 11.4 cm. Portal vein is patent with appropriate flow and directionality. Mildly dilated portal vein, measuring 12 mm in diameter. Hepatic veins are patent with appropriate flow and directionality. Gallbladder: Prior cholecystectomy. Bile Ducts: No intrahepatic biliary ductal dilatation. No extrahepatic biliary ductal dilatation. The common bile duct is normal in size and measuring 4.2 mm in diameter. Fluid survey: Small amount of perihepatic ascites. Impression: Cirrhosis. No focal liver lesions identified. Small volume perihepatic ascites. CRITICAL RESULT: No. COMMUNICATION: Per this written report. Images personally reviewed, interpreted and dictated by SABINE Yang. US paracentesis Narrative: ULTRASOUND-GUIDED PARACENTESIS HISTORY: Ascites ATTENDING PHYSICIAN: Dr. Haseeb Gil PHYSICIAN ELDER ASSISTANT: Gabriel Velasco PA-C FINDINGS: After informed consent was obtained and timeout procedure performed, fluid was localized in the right lower quadrant under ultrasound guidance and marked on the skin appropriately. The patient was then prepped and draped in the usual sterile fashion and the skin was anesthetized with 1% Lidocaine. An ultrasound guided paracentesis was then performed using a Turkel needle. Approximately 6 liters of clear yellow fluid was removed. 80 mL was sent to lab. The patient tolerated the procedure well and there were no immediate complications. Impression: Ultrasound guided right lower quadrant paracentesis as discussed above. 6 liters of clear yellow fluid was removed. Images reviewed, interpreted, and dictated by Dr. Haseeb Gil. Transcribed by Gabriel Velasco PA-C. Ultrasound renal limited Narrative: RENAL ULTRASOUND HISTORY: Renal failure PROCEDURE: Sonographic images of the kidneys were obtained in both longitudinal and transverse orientations. FINDINGS: Limited images of the liver parenchyma demonstrate normal echogenicity. The right kidney measures 9.5 cm in length. It has normal echogenicity. There is no hydronephrosis. The left kidney measures 11.0 cm in length. It has normal echogenicity. There is no hydronephrosis. Impression: Normal renal ultrasound. Images reviewed, interpreted, and dictated by Ronnell Tom MD XR chest AP portable Narrative: PORTABLE CHEST 11/30/2024 11:29 AM HISTORY: Hypertension, decompensated cirrhosis. COMPARISON: None. FINDINGS: The heart is proper size. The mediastinum is unremarkable. Prominent perihilar interstitial changes are noted, likely secondary to vascular congestion. There is no pneumothorax. The osseous structures are unremarkable. Impression: Prominent interstitial changes are likely secondary to vascular congestion. Continued follow-up is recommended. Images reviewed, interpreted, and dictated by Dr. Jose C Calhoun. Transcribed by Marielos Sotelo PA-C. ECHO COMPLETE (DOPPLER / COLOR) W OR WO CONTRAST TRANSTHORACIC ECHOCARDIOGRAPHY REPORT Demographics Patient Name: RIN JONES : 1960 Age: 64 year(s) Corporate ID Number: [id number] Gender Female Container Repairer: Giovanna Rock Height: 67 inches [facility] Referring Physician: HUEY HURTADO Weight: 225 pounds Interpreting JESSICA RAYMOND MD BMI: 35.24 kg/m^2 Physician: Date of Service: 11/30/2024 Blood Pressure: 118/59 mmHg Room Number: 579 Type of Study: TTE procedure: ECHO COMPLETE (DOPPLER / COLOR) W OR WO CONTRAST. Patient Status: Routine IP [facility] History/Tech Notes: Indication: shortness of breath R06.02 Impression: ######################################## Normal sized left ventricle. Normal left ventricular wall thickness. Visually estimated ejection fraction 55% +/- 5%. Borderline systolic strain pattern. Increased left atrial pressure (Grade II diastolic dysfunction). Sclerotic aortic valve leaflets. Trivial pericardial effusion measuring 0.3cm. posteriorly. ######################################## Measurements Summary: LVEDd: 5.33 cm LVESd: 3.64 cm IVSEd: 0.88 cm AO Root:2.7 cm LVPWd: 0.87 cm Contractility Score Normal Left Ventricular contractility was noted. LV regional wall motion: (0-Not visualized 1-Normal 2-Hypokinesis 3-Akinesis 4-Dyskinesis 5-Aneurysm) Left Ventricle Peak E-wave: 1.31 Peak A-wave: 1.35 m/s E/A ratio: 0.97 m/s Volume [id number] LV length: 8.51 cm ml Volume lzoplpwa69.96 ml LVOT diameter: 1.79 cm Normal sized left ventricle. Normal left ventricular wall thickness. Visually estimated ejection fraction 55% +/- 5%. Borderline systolic strain pattern. Increased left atrial pressure (Grade II diastolic dysfunction). No left ventricular masses or thrombi. Right Ventricle Diastolic dimension: 3.92 RV systolic pressure: 28.12 mmHg cm Normal sized right ventricle. Normal TAPSE c/w normal right ventricular function Left Atrium LA dimension: 4 cm LA volume:83.13 ml LA/Aorta: 1.48 Abnormal left atrial volume index 39 ml/m^2. Intact atrial septum. No atrial mass or thrombus. Right Atrium Normal sized right atrium. Intact atrial septum. No atrial mass or thrombus. Mitral Valve Deceleration time: 261.56 msec Thickened mitral valve leaflets. Mild (1+) mitral regurgitation. No mitral stenosis. No masses or vegetations seen. Aortic Valve AV VTI: 53.02 Area continuity: 1.13 Peak velocity: 2.38 m/s cm cm^2 Peak gradient: 22.63 LVOT VTI: 23.85 Mean velocity: 1.76 mmHg cm m/s Mean gradient: 13.56 mmHg Sclerotic aortic valve leaflets. Mildly thickend free edges of the aortic valve leaflets. No aortic regurgitation. No aortic stenosis. No masses or vegetations seen. Tricuspid Valve TR velocity: 2.51 m/s TR gradient: 25.19419 mmHg Estimated RAP: 3 mmHg RVSP: 28.12 mmHg Structurally normal tricuspid valve. Trace tricuspid valve regurgitation. No tricuspid stenosis. No masses or vegetations seen. Pulmonic Valve Acceleration time: 110.37 msec PASP: 28.12 mmHg Structurally normal pulmonic valve. Trace pulmonary valve regurgitation. No pulmonic stenosis. No masses or vegetations seen. Great Vessels Aorta Aortic Root: 2.7 cm LVOT Diameter: 1.79 cm Visualized thoracic aorta is normal. Normal aortic root. No evidence of dissection. Normal IVC with appropriate collapse. Pericardium / Pleura Trivial pericardial effusion measuring 0.3cm. posteriorly. Other Ascites noted in subcostal imaging. Assessment and plan: This is a 64 years old female who was transferred from outside hospital to be evaluated by nephrology for GERMÁN, she was noted to have abdominal distention and bilateral lower extremities edema upon admission. #Nonalcoholic liver cirrhosis with ascites - S/p paracentesis on 11/30 with 6 L removed, will follow cultures, patient is on po rifaximin and lactulose, will monitor CMP daily, GI did EGD on 12/01 that showed : EV Retained food Duodenal ulcer GI recommended : BID PPI x 8 weeks. Repeat EGD in 8-12 weeks to assess varices outside of acute episode. Abx for no more than 5 days for motility benefit in cirrhotic bleeding. Clear liquid diet today. - Will continue IV Protonix twice daily - Will continue lactulose and monitor ammonia level daily - Will continue IV Rocephin for 5 days total for SBP prophylaxis #Anasarca likely secondary to hepatorenal syndrome #GERMÁN -Nephrology input is appreciated, holding Lasix and Aldactone, patient is receiving albumin , avoidnephrotoxic agent and renally dose medications, monitor BMP and electrolytes daily #Diabetes: Holding metformin, continue insulin sliding scale and monitor blood glucose per protocol #Hyperlipidemia: Holding statin due to abnormal LFTs, will monitor CMP daily #Pancytopenia: -Hemoglobin is trending down to 7.3 today, patient will receive another unit of PRBC today, will monitor H&H every 8 hours and transfuse for hemoglobin less than 7 - No chemical DVT prophylaxis due to thrombocytopenia - Hematology is consulted and planning for bone marrow biopsy today 12/02 #Vitamin D deficiency: Will continue on p.o. vitamin D supplementation weekly #Will continue mechanical DVT prophylaxis MDM: Labs and images are noted and reviewed, monitor labs and electrolytes daily. Plan as detailed above. Discussed with nursing staff and will resume diet after procedure today. Discharge disposition: PT/OT is consulted, likely home with home health pending clinical improvement * Laura Batista MD - 12/01/2024 6:20 PM EDT Hematology Oncology Follow Up Note History of Present Illness: Patient was seen and examined today. He denied any new complaint. Resting in bed. She had EGD earlier today. She denied any further rectal bleeding. Past Medical History: Diagnosis Date Cirrhosis, non-alcoholic (HCC) Diabetes mellitus (HCC) Hypertension Past Surgical History: Procedure Laterality Date ESOPHAGOGASTRODUODENOSCOPY (EGD),REMOVAL FOREIGN BODY N/A 12/01/2024 Procedure: EGD, WITH FOREIGN BODY REMOVAL; Surgeon: Scott Daley MD; [facility]; Service: Gastroenterology; Laterality: N/A; Allergies: Patient has no known allergies. Medications: Current Outpatient Medications Medication Instructions albuterol 90 mcg/actuation inhaler 1 puff, inhalation, Every 6 hours PRN ammonium lactate (AMLACTIN) 1 g, topical, As needed aspirin 81 mg, oral, Daily atorvastatin (LIPITOR) 20 mg, oral, Every Night bisoprolol (ZEBETA) 10 mg, oral, 2 times daily cholecalciferol (VITAMIN D3) 10,000 Units, oral, Daily clopidogreL (PLAVIX) 75 mg, oral, Daily, Look-alike/Sound-alike medication colestipoL (COLESTID) 2 g, oral, Daily dicyclomine (BENTYL) 10 mg, oral, 2 times daily furosemide (LASIX) 40 mg, oral, 2 times daily gabapentin (NEURONTIN) 800 mg, oral, 3 times daily HYDROcodone-acetaminophen (NORCO) 10-325 mg per tablet 1 tablet, oral, Every 6 hours PRN hydrOXYzine pamoate (VISTARIL) 50 mg, oral, Every Night PRN, Look-alike/Sound-alike medication insulin aspart U-100 (NovoLOG) 100 unit/mL (3 mL) inpn subcutaneous, 4 times daily (before meals and nightly) lisinopriL (ZESTRIL) 10 mg, oral, 2 times daily metFORMIN (GLUCOPHAGE) 1,000 mg, oral, 2 times daily with breakfast and dinner, Look-alike/Sound-alike medication tirzepatide 7.5 mg, subcutaneous, Every 7 days triamcinolone (KENALOG) 0.1 % topical cream 0.1 Applications, topical, Daily, to affected area. Review of Symptoms: Review of Systems Constitutional: Positive for malaise/fatigue. HENT: Negative. Eyes: Negative. Respiratory: Negative. Cardiovascular: Negative. Gastrointestinal: Negative. Genitourinary: Negative. Musculoskeletal: Negative. Skin: Negative. Neurological: Negative. Endo/Heme/Allergies: Negative. Psychiatric/Behavioral: Negative. Vitals Vitals: 12/01/24 0955 12/01/24 1026 12/01/24 1042 12/01/24 1205 BP: 128/61 BP Location: Patient Position: Pulse: 94 103 Resp: 22 18 Temp: 98.1 ??F (36.7 ??C) TempSrc: SpO2: 93% 96% (!) 86% 91% Weight: Height: Gain/Loss Since Last Wt (Kgs): 0 kg Physical Exam Vitals reviewed. Constitutional: Appearance: She is ill-appearing. HENT: Head: Normocephalic. Mouth/Throat: Mouth: Mucous membranes are moist. Pharynx: Oropharynx is clear. Eyes: Pupils: Pupils are equal, round, and reactive to light. Cardiovascular: Rate and Rhythm: Normal rate and regular rhythm. Pulmonary: Breath sounds: Normal breath sounds. Abdominal: General: Abdomen is flat. Palpations: Abdomen is soft. Musculoskeletal: Cervical back: Normal range of motion and neck supple. Lymphadenopathy: Cervical: No cervical adenopathy. Right cervical: No superficial or posterior cervical adenopathy. Left cervical: No superficial or posterior cervical adenopathy. Upper Body: Right upper body: No supraclavicular or axillary adenopathy. Left upper body: No supraclavicular or axillary adenopathy. Lower Body: No right inguinal adenopathy. No left inguinal adenopathy. Skin: Coloration: Skin is not jaundiced. Neurological: Mental Status: She is alert. Relevant Results: WBC Date Value Ref Range Status 12/01/2024 1.7 (LL) 4.0 - 10.0 K/??L Final 11/30/2024 1.9 (LL) 4.0 - 10.0 K/??L Final RBC Date Value Ref Range Status 12/01/2024 2.15 (L) 3.93 - 5.22 M/??L Final 11/30/2024 2.63 (L) 3.93 - 5.22 M/??L Final Hemoglobin Date Value Ref Range Status 12/01/2024 8.0 (L) 11.2 - 15.7 GM/DL Final 12/01/2024 6.7 (L) 11.2 - 15.7 GM/DL Final 11/30/2024 8.2 (L) 11.2 - 15.7 GM/DL Final Hematocrit Date Value Ref Range Status 12/01/2024 21.6 (L) 34.1 - 44.9 % Final 11/30/2024 26.3 (L) 34.1 - 44.9 % Final Platelets Date Value Ref Range Status 12/01/2024 54 (L) 140 - 375 K/CU MM Final 11/30/2024 64 (L) 140 - 375 K/CU MM Final Chemistry Component Value Date/Time NA 145 12/01/2024 0405 K 4.2 12/01/20245 CL 116 (H) 12/01/2024404 CO2 20 (L) 12/01/2024404 BUN 68.3 (H) 12/01/2024404 CREATININE 4.13 (H) 12/01/2024404 Component Value Date/Time CALCIUM 8.0 (L) 12/01/2024404 ALKPHOS 61 12/01/2024404 AST 26 12/01/2024404 ALT 15 12/01/2024404 BILITOT 0.5 12/01/2024404 Radiology Results (last 7 days) Procedure Component Value Units Date/Time Ultrasound renal limited [[id number]] Collected: 11/30/241645 Order Status: Completed Updated: 11/30/241648 Narrative: RENAL ULTRASOUND HISTORY: Renal failure PROCEDURE: Sonographic images of the kidneys were obtained in both longitudinal and transverse orientations. FINDINGS: Limited images of the liver parenchyma demonstrate normal echogenicity. The right kidney measures 9.5 cm in length. It has normal echogenicity. There is no hydronephrosis. The left kidney measures 11.0 cm in length. It has normal echogenicity. There is no hydronephrosis. Impression: Normal renal ultrasound. Images reviewed, interpreted, and dictated by Ronnell Tom MD Ultrasound liver [[id number]] Collected: 11/30/241642 Order Status: Completed Updated: 11/30/241654 Narrative: CLINICAL INDICATION: Abdominal pain. Assess HCC TECHNIQUE: Multiplanar grayscale and color ultrasound images of the right upper quadrant of the abdomen were obtained. COMPARISON: Ultrasound 11/30/2024. FINDINGS: Quality: Adequate. Visualized Pancreas: Partial imaging of the pancreas is unremarkable. Liver: The liver parenchyma is coarse and heterogenous consistent with parenchymal disease. This limits the visualization of focal hepatic lesions however there are no sonographically detectable focal liver lesions. Nodular contour of the liver, suggestive of cirrhosis. Liver is small in size, measuring 11.4 cm. Portal vein is patent with appropriate flow and directionality. Mildly dilated portal vein, measuring 12 mm in diameter. Hepatic veins are patent with appropriate flow and directionality. Gallbladder: Prior cholecystectomy. Bile Ducts: No intrahepatic biliary ductal dilatation. No extrahepatic biliary ductal dilatation. The common bile duct is normal in size and measuring 4.2 mm in diameter. Fluid survey: Small amount of perihepatic ascites. Impression: Cirrhosis. No focal liver lesions identified. Small volume perihepatic ascites. CRITICAL RESULT: No. COMMUNICATION: Per this written report. Images personally reviewed, interpreted and dictated by SABINE Yang. US paracentesis [[id number]] Collected: 11/30/24 1637 Order Status: Completed Updated: 11/30/24 1655 Narrative: ULTRASOUND-GUIDED PARACENTESIS HISTORY: Ascites ATTENDING PHYSICIAN: Dr. Haseeb Gil PHYSICIAN ELDER ASSISTANT: Gabriel Velasco PA-C FINDINGS: After informed consent was obtained and timeout procedure performed, fluid was localized in the right lower quadrant under ultrasound guidance and marked on the skin appropriately. The patient was then prepped and draped in the usual sterile fashion and the skin was anesthetized with 1% Lidocaine. An ultrasound guided paracentesis was then performed using a Turkel needle. Approximately 6 liters of clear yellow fluid was removed. 80 mL was sent to lab. The patient tolerated the procedure well and there were no immediate complications. Impression: Ultrasound guided right lower quadrant paracentesis as discussed above. 6 liters of clear yellow fluid was removed. Images reviewed, interpreted, and dictated by Dr. Haseeb Gil. Transcribed by Gabriel Velasco PA-C. XR chest AP portable [[id number]] Collected: 11/30/24 1215 Order Status: Completed Updated: 11/30/24 1222 Narrative: PORTABLE CHEST 11/30/2024 11:29 AM HISTORY: Hypertension, decompensated cirrhosis. COMPARISON: None. FINDINGS: The heart is proper size. The mediastinum is unremarkable. Prominent perihilar interstitial changes are noted, likely secondary to vascular congestion. There is no pneumothorax. The osseous structures are unremarkable. Impression: Prominent interstitial changes are likely secondary to vascular congestion. Continued follow-up is recommended. Images reviewed, interpreted, and dictated by Dr. Jose C Calhoun. Transcribed by Marielos Sotelo PA-C. US renal complete [[id number]] Order Status: Canceled Assessment Pancytopenia. White blood count today was 1700, hemoglobin dropped to 6.7 g/dL and platelet count today was 54,000. She received a unit of blood transfusion today and hemoglobin improved to 8 g/dL. EGD was done today and she was found to have small esophageal varices. Ulcer. Plan I discussed the finding of the peripheral blood count with the patient today. He recommended bone marrow biopsy and aspirate for further evaluation of the pancytopenia and she agreed. I will place the order. Please consider blood and platelet transfusion as needed. We will continue to follow-up. Signed: Electronically signed by Laura Batista MD 12/01/2024 6:21 PM EDT * Timothy Bai MD - 12/01/2024 10:08 AM EDT Subjective Patient is seen and examined at bedside, no acute overnight events . Patient is n.p.o. and going for EGD this morning. Review of Systems Constitutional: Positive for fatigue. Respiratory: Positive for shortness of breath. Cardiovascular: Positive for leg swelling. Gastrointestinal: Positive for abdominal distention. Psychiatric/Behavioral: The patient is nervous/anxious. Objective Last Recorded Vitals Blood pressure (!) 145/57, pulse 94, temperature 97.3 ??F (36.3 ??C), temperature source Skin, resp. rate 22, height 1.676 m (5' 6 ), weight 101.6 kg (224 lb), SpO2 93%. Physical Exam Constitutional: Appearance: She is ill-appearing. HENT: Head: Normocephalic. Eyes: Pupils: Pupils are equal, round, and reactive to light. Cardiovascular: Rate and Rhythm: Normal rate and regular rhythm. Pulmonary: Effort: Pulmonary effort is normal. Breath sounds: Normal breath sounds. Abdominal: General: Bowel sounds are normal. There is distension. Palpations: Abdomen is soft. Skin: General: Skin is dry. Coloration: Skin is pale. Neurological: Mental Status: She is alert. Mental status is at baseline. Labs: Results for orders placed or performed during the hospital encounter of 11/30/24 (from the past 24 hours) Glucose, Nova Meter Status: None Collection Time: 11/30/24 10:46 AM Result Value Ref Range POC-GLUCOSE 102 70 - 110 mg/dL Laboratory Scientist [id number] Urinalysis, Reflex Microscopic and Culture If Indicated Status: Abnormal Collection Time: 11/30/24 11:35 AM Result Value Ref Range Color, UA Light Yellow Clarity, UA Turbid (A) Clear Specific [place], UA 1.011 1.005 - 1.030 pH, UA 5.0 (L) 6.0 - 8.0 Leukocytes, UA 500 Félix/uL (A) Negative Nitrite, UA Negative Negative Protein, UA Negative Negative Glucose, UA Normal Normal Ketones, UA Negative Negative Bilirubin, UA Negative Negative Blood, UA Negative Negative Urobilinogen, UA Normal Normal Specimen Source Urine, Clean Catch Urine Culture Status: None Collection Time: 11/30/24 11:35 AM Specimen: Urine, Clean Catch Result Value Ref Range Result Recollect Specimen - 3 or more organisms suggests contamination Urinalysis Microscopic Only Status: Abnormal Collection Time: 11/30/24 11:35 AM Result Value Ref Range WBC, UA 21-50 (A) None Seen /HPF RBC, UA 0-2 (A) None Seen /HPF Bacteria, UA 1+ (A) None Seen, Trace Mucus 1+ (A) None Seen SQUAMOUS EPITHELIAL 3-5 (A) None Seen /HPF HYALINE CASTS 21-50 (A) None Seen /LPF Sodium, random urine Status: None Collection Time: 11/30/24 11:35 AM Result Value Ref Range Sodium Urine 83 See Comment meq/L Urea Nitrogen, random urine Status: None Collection Time: 11/30/24 11:35 AM Result Value Ref Range Urea Nitrogen, Ur 305 mg/dL Protein / creatinine ratio, urine Status: Normal Collection Time: 11/30/24 11:35 AM Result Value Ref Range Creatinine, Ur 62.00 47.00 - 110.00 mg/dL Protein Creatinine Ratio 0.19 <=0.20 Protein, Urine 12 1 - 14 mg/dL Lactate dehydrogenase (LDH), body fluid Status: None Collection Time: 11/30/24 4:03 PM Result Value Ref Range LDH, Fluid 71 See Comment U/L BODY FLUID TYPE Peritoneal Body fluid cell count with differential Status: Abnormal Collection Time: 11/30/24 4:03 PM Result Value Ref Range Appearance Cloudy (A) Clear Color Yellow BODY FLUID TYPE Peritoneal Auto WBC/Nucleated Cells BF 85 /uL Auto RBC BF <3,000 /uL Body Fluid Culture + Gram Stain Status: None (Preliminary result) Collection Time: 11/30/24 4:03 PM Specimen: Body Fluid; Peritoneal Fluid Result Value Ref Range Result No growth Gram Stain Result No organisms seen Gram Stain Result No cells seen Anaerobic Culture Status: None (Preliminary result) Collection Time: 11/30/24 4:03 PM Specimen: Body Fluid; Peritoneal Fluid Result Value Ref Range Result Culture in progress Fungus Culture W/ROSA MARIA Or Nimisha Ink Status: None (Preliminary result) Collection Time: 11/30/24 4:03 PM Specimen: Body Fluid; Peritoneal Fluid Result Value Ref Range ROSA MARIA Prep No fungal elements seen DIFFERENTIAL, BODY FLUID Status: None Collection Time: 11/30/24 4:03 PM Result Value Ref Range Neutrophils Fluid 5 0 - 25 % Lymphocytes Fluid 46 % Unidentified Mononuclear Cells BF 49 0 - 0 % Glucose, body fluid Status: None Collection Time: 11/30/24 4:03 PM Result Value Ref Range Glucose, Body Fluid 107 See Comment mg/dL BODY FLUID TYPE Peritoneal Protein, body fluid Status: None Collection Time: 11/30/24 4:03 PM Result Value Ref Range Protein, Fluid 1.9 See Comment g/dL BODY FLUID TYPE Peritoneal Glucose, Nova Meter Status: None Collection Time: 11/30/24 6:22 PM Result Value Ref Range POC-GLUCOSE 107 70 - 110 mg/dL Laboratory Scientist [id number] Glucose, Nova Meter Status: None Collection Time: 11/30/24 7:38 PM Result Value Ref Range POC-GLUCOSE 106 70 - 110 mg/dL Laboratory Scientist [id number] Magnesium Status: Abnormal Collection Time: 12/01/24 4:05 AM Result Value Ref Range Magnesium 2.7 (H) 1.6 - 2.6 mg/dL Comprehensive Metabolic Panel Status: Abnormal Collection Time: 12/01/24 4:05 AM Result Value Ref Range Sodium 145 136 - 145 meq/L Potassium 4.2 3.4 - 5.1 meq/L Chloride 116 (H) 98 - 112 meq/L CO2 20 (L) 22 - 29 meq/L Calcium 8.0 (L) 8.4 - 10.2 mg/dL Glucose 120 (H) 82 - 115 mg/dL BUN 68.3 (H) 9.8 - 20.1 mg/dL Creatinine 4.13 (H) 0.57 - 1.11 mg/dL BUN/Creatinine 17 8 - 20 eGFR (mL/min/1.73m2) 12 (L) >=60 mL/min/1.73m2 Albumin 2.8 (L) 3.5 - 5.0 g/dL Alkaline Phosphatase 61 40 - 150 U/L ALT 15 <=34 U/L AST 26 11 - 34 U/L Total Bilirubin 0.5 0.2 - 1.2 mg/dL Protein, Total 5.7 (L) 6.4 - 8.3 g/dL Globulin 2.9 2.5 - 4.1 g/dL Anion Gap 13 (H) 4 - 12 A/G Ratio 1.0 0.7 - 1.9 Osmolality Calc 309.8 mOsm/kg CBC - Hemogram ([facility]) Status: Abnormal Collection Time: 12/01/24 4:06 AM Result Value Ref Range WBC 1.7 (LL) 4.0 - 10.0 K/??L RBC 2.15 (L) 3.93 - 5.22 M/??L Hemoglobin 6.7 (L) 11.2 - 15.7 GM/DL Hematocrit 21.6 (L) 34.1 - 44.9 % MCV 101 (H) 79 - 95 fL MCH 31.2 25.6 - 32.2 pg MCHC 31.0 (L) 32.2 - 35.5 GM/DL RDW 16.2 (H) 11.7 - 14.4 % Platelets 54 (L) 140 - 375 K/CU MM MPV 10.6 9.4 - 12.3 fL Ammonia Status: Abnormal Collection Time: 12/01/24 4:06 AM Result Value Ref Range Ammonia 75 (H) 18 - 72 ??mol/L ABO/RH Confirmation/Retype Status: None Collection Time: 12/01/24 4:06 AM Result Value Ref Range RETYPE O Positive Prepare RBC: 1 Units Status: None Collection Time: 12/01/24 4:53 AM Result Value Ref Range Issue Date/Time [id number] Product Identification Red Blood Cells Product Code [id number] Status Information Transfused Unit Number [id number] Blood Type 5100 Cross Match Results Compatible Glucose, Nova Meter Status: None Collection Time: 12/01/24 5:37 AM Result Value Ref Range POC-GLUCOSE 107 70 - 110 mg/dL Laboratory Scientist [id number] Type and Screen Status: None (Preliminary result) Collection Time: 12/01/24 7:08 AM Result Value Ref Range ABO/Rh O Positive Antibody Screen Negative Glucose, Nova Meter Status: None Collection Time: 12/01/24 8:12 AM Result Value Ref Range POC-GLUCOSE 103 70 - 110 mg/dL Laboratory Scientist [id number] Ultrasound liver Narrative: CLINICAL INDICATION: Abdominal pain. Assess HCC TECHNIQUE: Multiplanar grayscale and color ultrasound images of the right upper quadrant of the abdomen were obtained. COMPARISON: Ultrasound 11/30/2024. FINDINGS: Quality: Adequate. Visualized Pancreas: Partial imaging of the pancreas is unremarkable. Liver: The liver parenchyma is coarse and heterogenous consistent with parenchymal disease. This limits the visualization of focal hepatic lesions however there are no sonographically detectable focal liver lesions. Nodular contour of the liver, suggestive of cirrhosis. Liver is small in size, measuring 11.4 cm. Portal vein is patent with appropriate flow and directionality. Mildly dilated portal vein, measuring 12 mm in diameter. Hepatic veins are patent with appropriate flow and directionality. Gallbladder: Prior cholecystectomy. Bile Ducts: No intrahepatic biliary ductal dilatation. No extrahepatic biliary ductal dilatation. The common bile duct is normal in size and measuring 4.2 mm in diameter. Fluid survey: Small amount of perihepatic ascites. Impression: Cirrhosis. No focal liver lesions identified. Small volume perihepatic ascites. CRITICAL RESULT: No. COMMUNICATION: Per this written report. Images personally reviewed, interpreted and dictated by SABINE Yang. US paracentesis Narrative: ULTRASOUND-GUIDED PARACENTESIS HISTORY: Ascites ATTENDING PHYSICIAN: Dr. Haseeb Gil PHYSICIAN ELDER ASSISTANT: Gabriel Velasco PA-C FINDINGS: After informed consent was obtained and timeout procedure performed, fluid was localized in the right lower quadrant under ultrasound guidance and marked on the skin appropriately. The patient was then prepped and draped in the usual sterile fashion and the skin was anesthetized with 1% Lidocaine. An ultrasound guided paracentesis was then performed using a Turkel needle. Approximately 6 liters of clear yellow fluid was removed. 80 mL was sent to lab. The patient tolerated the procedure well and there were no immediate complications. Impression: Ultrasound guided right lower quadrant paracentesis as discussed above. 6 liters of clear yellow fluid was removed. Images reviewed, interpreted, and dictated by Dr. Haseeb Gil. Transcribed by Gabriel Velasco PA-C. Ultrasound renal limited Narrative: RENAL ULTRASOUND HISTORY: Renal failure PROCEDURE: Sonographic images of the kidneys were obtained in both longitudinal and transverse orientations. FINDINGS: Limited images of the liver parenchyma demonstrate normal echogenicity. The right kidney measures 9.5 cm in length. It has normal echogenicity. There is no hydronephrosis. The left kidney measures 11.0 cm in length. It has normal echogenicity. There is no hydronephrosis. Impression: Normal renal ultrasound. Images reviewed, interpreted, and dictated by Ronnell Tom MD XR chest AP portable Narrative: PORTABLE CHEST 11/30/2024 11:29 AM HISTORY: Hypertension, decompensated cirrhosis. COMPARISON: None. FINDINGS: The heart is proper size. The mediastinum is unremarkable. Prominent perihilar interstitial changes are noted, likely secondary to vascular congestion. There is no pneumothorax. The osseous structures are unremarkable. Impression: Prominent interstitial changes are likely secondary to vascular congestion. Continued follow-up is recommended. Images reviewed, interpreted, and dictated by Dr. Jose C Calhoun. Transcribed by Marielos Sotelo PA-C. ECHO COMPLETE (DOPPLER / COLOR) W OR WO CONTRAST TRANSTHORACIC ECHOCARDIOGRAPHY REPORT Demographics Patient Name: RIN JONES : 1960 Age: 64 year(s) Corporate ID Number: [id number] Gender Female Container Repairer: Giovanna Rock Height: 67 inches [facility] Referring Physician: HUEY HURTADO Weight: 225 pounds Interpreting JESSIAC RAYMOND MD BMI: 35.24 kg/m^2 Physician: Date of Service: 11/30/2024 Blood Pressure: 118/59 mmHg Room Number: 579 Type of Study: TTE procedure: ECHO COMPLETE (DOPPLER / COLOR) W OR WO CONTRAST. Patient Status: Routine IP Study Location: PortableTechnical Quality: Adequate visualization History/Tech Notes: Indication: shortness of breath R06.02 Impression: ######################################## Normal sized left ventricle. Normal left ventricular wall thickness. Visually estimated ejection fraction 55% +/- 5%. Borderline systolic strain pattern. Increased left atrial pressure (Grade II diastolic dysfunction). Sclerotic aortic valve leaflets. Trivial pericardial effusion measuring 0.3cm. posteriorly. ######################################## Measurements Summary: LVEDd: 5.33 cm LVESd: 3.64 cm IVSEd: 0.88 cm AO Root:2.7 cm LVPWd: 0.87 cm Contractility Score Normal Left Ventricular contractility was noted. LV regional wall motion: (0-Not visualized 1-Normal 2-Hypokinesis 3-Akinesis 4-Dyskinesis 5-Aneurysm) Left Ventricle Peak E-wave: 1.31 Peak A-wave: 1.35 m/s E/A ratio: 0.97 m/s Volume [id number] LV length: 8.51 cm ml Volume [id number] ml LVOT diameter: 1.79 cm Normal sized left ventricle. Normal left ventricular wall thickness. Visually estimated ejection fraction 55% +/- 5%. Borderline systolic strain pattern. Increased left atrial pressure (Grade II diastolic dysfunction). No left ventricular masses or thrombi. Right Ventricle Diastolic dimension: 3.92 RV systolic pressure: 28.12 mmHg cm Normal sized right ventricle. Normal TAPSE c/w normal right ventricular function Left Atrium LA dimension: 4 cm LA volume:83.13 ml LA/Aorta: 1.48 Abnormal left atrial volume index 39 ml/m^2. Intact atrial septum. No atrial mass or thrombus. Right Atrium Normal sized right atrium. Intact atrial septum. No atrial mass or thrombus. Mitral Valve Deceleration time: 261.56 msec Thickened mitral valve leaflets. Mild (1+) mitral regurgitation. No mitral stenosis. No masses or vegetations seen. Aortic Valve AV VTI: 53.02 Area continuity: 1.13 Peak velocity: 2.38 m/s cm cm^2 Peak gradient: 22.63 LVOT VTI: 23.85 Mean velocity: 1.76 mmHg cm m/s Mean gradient: 13.56 mmHg Sclerotic aortic valve leaflets. Mildly thickend free edges of the aortic valve leaflets. No aortic regurgitation. No aortic stenosis. No masses or vegetations seen. Tricuspid Valve TR velocity: 2.51 m/s TR gradient: 25.99707 mmHg Estimated RAP: 3 mmHg RVSP: 28.12 mmHg Structurally normal tricuspid valve. Trace tricuspid valve regurgitation. No tricuspid stenosis. No masses or vegetations seen. Pulmonic Valve Acceleration time: 110.37 msec PASP: 28.12 mmHg Structurally normal pulmonic valve. Trace pulmonary valve regurgitation. No pulmonic stenosis. No masses or vegetations seen. Great Vessels Aorta Aortic Root: 2.7 cm LVOT Diameter: 1.79 cm Visualized thoracic aorta is normal. Normal aortic root. No evidence of dissection. Normal IVC with appropriate collapse. Pericardium / Pleura Trivial pericardial effusion measuring 0.3cm. posteriorly. Other Ascites noted in subcostal imaging. Assessment and plan: This is a 64 years old female who was transferred from outside hospital to be evaluated by nephrology for GERMÁN, she was noted to have abdominal distention and bilateral lower extremities edema upon admission. #Nonalcoholic liver cirrhosis with ascites - S/p paracentesis on 11/30 with 6 L removed, will follow cultures, patient is on po rifaximin and lactulose, will monitor CMP daily, GI did EGD today 12/01: EV Retained food Duodenal ulcer GI recommended : BID PPI x 8 weeks. Repeat EGD in 8-12 weeks to assess varices outside of acute episode. Abx for no more than 5 days for motility benefit in cirrhotic bleeding. Clear liquid diet today. - Will continue IV Protonix daily -Will increase lactulose dose due to elevated ammonia level and monitor daily - Will continue IV Rocephin for SBP prophylaxis #Anasarca likely secondary to hepatorenal syndrome #GERMÁN -Nephrology input is appreciated, holding Lasix and Aldactone, patient is receiving albumin and IV Ringer lactate, avoid nephrotoxic agent and renally dose medications, monitor BMP and electrolytes daily #Diabetes: Holding metformin, continue insulin sliding scale and monitor blood glucose per protocol #Hyperlipidemia: Holding statin due to abnormal LFTs #Pancytopenia: -Hemoglobin is 6.7, patient received 1 units of PRBC, will monitor H&H every 8 hours and transfuse for hemoglobin less than 7 -Normal iron and vitamin B12 levels, no chemical DVT prophylaxis due to thrombocytopenia - Hematology is consulted for possible need of bone marrow biopsy #Vitamin D deficiency: Will continue on p.o. vitamin D supplementation weekly #Will continue mechanical DVT prophylaxis MDM: Labs and images are noted and reviewed, monitor labs and electrolytes daily. Plan as detailed above. Discussed with nursing staff and will resume clear liquid diet after procedure today. Discharge disposition: PT/OT is consulted, likely home with home health pending clinical improvement * Hill Boo MD - 12/01/2024 10:05 AM EDT Subjective No acute events overnight. No new complain Review of Systems No CP, SOA, N/V, fever, chills or rash Objective Last Recorded Vitals Blood pressure (!) 145/57, pulse 94, temperature 97.3 ??F (36.3 ??C), temperature source Skin, resp. rate 22, height 1.676 m (5' 6 ), weight 101.6 kg (224 lb), SpO2 93%. Physical Exam Gen: Alert, NAD HEENT: NC, AT Neck: Supple, no JVD Lungs: CTA. Non labored, symetrical chest expansion CVS: SI/S2 audible. RRR, No M/G noted Abd: soft, NT, ND, BS + Ext: +++ Pedal edema , no cyanosis WALLPAPERER HELPER: Alert, No focal deficit noted grossly Psy: Cooperative Labs: Results for orders placed or performed during the hospital encounter of 11/30/24 (from the past 24 hours) Glucose, Nova Meter Status: None Collection Time: 11/30/24 10:46 AM Result Value Ref Range POC-GLUCOSE 102 70 - 110 mg/dL Laboratory Scientist [id number] Urinalysis, Reflex Microscopic and Culture If Indicated Status: Abnormal Collection Time: 11/30/24 11:35 AM Result Value Ref Range Color, UA Light Yellow Clarity, UA Turbid (A) Clear Specific [place], UA 1.011 1.005 - 1.030 pH, UA 5.0 (L) 6.0 - 8.0 Leukocytes, UA 500 Félix/uL (A) Negative Nitrite, UA Negative Negative Protein, UA Negative Negative Glucose, UA Normal Normal Ketones, UA Negative Negative Bilirubin, UA Negative Negative Blood, UA Negative Negative Urobilinogen, UA Normal Normal Specimen Source Urine, Clean Catch Urine Culture Status: None Collection Time: 11/30/24 11:35 AM Specimen: Urine, Clean Catch Result Value Ref Range Result Recollect Specimen - 3 or more organisms suggests contamination Urinalysis Microscopic Only Status: Abnormal Collection Time: 11/30/24 11:35 AM Result Value Ref Range WBC, UA 21-50 (A) None Seen /HPF RBC, UA 0-2 (A) None Seen /HPF Bacteria, UA 1+ (A) None Seen, Trace Mucus 1+ (A) None Seen SQUAMOUS EPITHELIAL 3-5 (A) None Seen /HPF HYALINE CASTS 21-50 (A) None Seen /LPF Sodium, random urine Status: None Collection Time: 11/30/24 11:35 AM Result Value Ref Range Sodium Urine 83 See Comment meq/L Urea Nitrogen, random urine Status: None Collection Time: 11/30/24 11:35 AM Result Value Ref Range Urea Nitrogen, Ur 305 mg/dL Protein / creatinine ratio, urine Status: Normal Collection Time: 11/30/24 11:35 AM Result Value Ref Range Creatinine, Ur 62.00 47.00 - 110.00 mg/dL Protein Creatinine Ratio 0.19 <=0.20 Protein, Urine 12 1 - 14 mg/dL Lactate dehydrogenase (LDH), body fluid Status: None Collection Time: 11/30/24 4:03 PM Result Value Ref Range LDH, Fluid 71 See Comment U/L BODY FLUID TYPE Peritoneal Body fluid cell count with differential Status: Abnormal Collection Time: 11/30/24 4:03 PM Result Value Ref Range Appearance Cloudy (A) Clear Color Yellow BODY FLUID TYPE Peritoneal Auto WBC/Nucleated Cells BF 85 /uL Auto RBC BF <3,000 /uL Body Fluid Culture + Gram Stain Status: None (Preliminary result) Collection Time: 11/30/24 4:03 PM Specimen: Body Fluid; Peritoneal Fluid Result Value Ref Range Result No growth Gram Stain Result No organisms seen Gram Stain Result No cells seen Anaerobic Culture Status: None (Preliminary result) Collection Time: 11/30/24 4:03 PM Specimen: Body Fluid; Peritoneal Fluid Result Value Ref Range Result Culture in progress Fungus Culture W/ROSA MARIA Or Nimisha Ink Status: None (Preliminary result) Collection Time: 11/30/24 4:03 PM Specimen: Body Fluid; Peritoneal Fluid Result Value Ref Range ROSA MARIA Prep No fungal elements seen DIFFERENTIAL, BODY FLUID Status: None Collection Time: 11/30/24 4:03 PM Result Value Ref Range Neutrophils Fluid 5 0 - 25 % Lymphocytes Fluid 46 % Unidentified Mononuclear Cells BF 49 0 - 0 % Glucose, body fluid Status: None Collection Time: 11/30/24 4:03 PM Result Value Ref Range Glucose, Body Fluid 107 See Comment mg/dL BODY FLUID TYPE Peritoneal Protein, body fluid Status: None Collection Time: 11/30/24 4:03 PM Result Value Ref Range Protein, Fluid 1.9 See Comment g/dL BODY FLUID TYPE Peritoneal Glucose, Nova Meter Status: None Collection Time: 11/30/24 6:22 PM Result Value Ref Range POC-GLUCOSE 107 70 - 110 mg/dL Laboratory Scientist [id number] Glucose, Nova Meter Status: None Collection Time: 11/30/24 7:38 PM Result Value Ref Range POC-GLUCOSE 106 70 - 110 mg/dL Laboratory Scientist [id number] Magnesium Status: Abnormal Collection Time: 12/01/24 4:05 AM Result Value Ref Range Magnesium 2.7 (H) 1.6 - 2.6 mg/dL Comprehensive Metabolic Panel Status: Abnormal Collection Time: 12/01/24 4:05 AM Result Value Ref Range Sodium 145 136 - 145 meq/L Potassium 4.2 3.4 - 5.1 meq/L Chloride 116 (H) 98 - 112 meq/L CO2 20 (L) 22 - 29 meq/L Calcium 8.0 (L) 8.4 - 10.2 mg/dL Glucose 120 (H) 82 - 115 mg/dL BUN 68.3 (H) 9.8 - 20.1 mg/dL Creatinine 4.13 (H) 0.57 - 1.11 mg/dL BUN/Creatinine 17 8 - 20 eGFR (mL/min/1.73m2) 12 (L) >=60 mL/min/1.73m2 Albumin 2.8 (L) 3.5 - 5.0 g/dL Alkaline Phosphatase 61 40 - 150 U/L ALT 15 <=34 U/L AST 26 11 - 34 U/L Total Bilirubin 0.5 0.2 - 1.2 mg/dL Protein, Total 5.7 (L) 6.4 - 8.3 g/dL Globulin 2.9 2.5 - 4.1 g/dL Anion Gap 13 (H) 4 - 12 A/G Ratio 1.0 0.7 - 1.9 Osmolality Calc 309.8 mOsm/kg CBC - Hemogram ([facility]) Status: Abnormal Collection Time: 12/01/24 4:06 AM Result Value Ref Range WBC 1.7 (LL) 4.0 - 10.0 K/??L RBC 2.15 (L) 3.93 - 5.22 M/??L Hemoglobin 6.7 (L) 11.2 - 15.7 GM/DL Hematocrit 21.6 (L) 34.1 - 44.9 % MCV 101 (H) 79 - 95 fL MCH 31.2 25.6 - 32.2 pg MCHC 31.0 (L) 32.2 - 35.5 GM/DL RDW 16.2 (H) 11.7 - 14.4 % Platelets 54 (L) 140 - 375 K/CU MM MPV 10.6 9.4 - 12.3 fL Ammonia Status: Abnormal Collection Time: 12/01/24 4:06 AM Result Value Ref Range Ammonia 75 (H) 18 - 72 ??mol/L ABO/RH Confirmation/Retype Status: None Collection Time: 12/01/24 4:06 AM Result Value Ref Range RETYPE O Positive Prepare RBC: 1 Units Status: None Collection Time: 12/01/24 4:53 AM Result Value Ref Range Issue Date/Time [id number] Product Identification Red Blood Cells Product Code [id number] Status Information Transfused Unit Number [id number] Blood Type 5100 Cross Match Results Compatible Glucose, Nova Meter Status: None Collection Time: 12/01/24 5:37 AM Result Value Ref Range POC-GLUCOSE 107 70 - 110 mg/dL Laboratory Scientist [id number] Type and Screen Status: None (Preliminary result) Collection Time: 12/01/24 7:08 AM Result Value Ref Range ABO/Rh O Positive Antibody Screen Negative Glucose, Nova Meter Status: None Collection Time: 12/01/24 8:12 AM Result Value Ref Range POC-GLUCOSE 103 70 - 110 mg/dL Laboratory Scientist [id number] Ultrasound liver Narrative: CLINICAL INDICATION: Abdominal pain. Assess HCC TECHNIQUE: Multiplanar grayscale and color ultrasound images of the right upper quadrant of the abdomen were obtained. COMPARISON: Ultrasound 11/30/2024. FINDINGS: Quality: Adequate. Visualized Pancreas: Partial imaging of the pancreas is unremarkable. Liver: The liver parenchyma is coarse and heterogenous consistent with parenchymal disease. This limits the visualization of focal hepatic lesions however there are no sonographically detectable focal liver lesions. Nodular contour of the liver, suggestive of cirrhosis. Liver is small in size, measuring 11.4 cm. Portal vein is patent with appropriate flow and directionality. Mildly dilated portal vein, measuring 12 mm in diameter. Hepatic veins are patent with appropriate flow and directionality. Gallbladder: Prior cholecystectomy. Bile Ducts: No intrahepatic biliary ductal dilatation. No extrahepatic biliary ductal dilatation. The common bile duct is normal in size and measuring 4.2 mm in diameter. Fluid survey: Small amount of perihepatic ascites. Impression: Cirrhosis. No focal liver lesions identified. Small volume perihepatic ascites. CRITICAL RESULT: No. COMMUNICATION: Per this written report. Images personally reviewed, interpreted and dictated by SABINE Yang. US paracentesis Narrative: ULTRASOUND-GUIDED PARACENTESIS HISTORY: Ascites ATTENDING PHYSICIAN: Dr. Haseeb Gil PHYSICIAN ELDER ASSISTANT: Gabriel Velasco PA-C FINDINGS: After informed consent was obtained and timeout procedure performed, fluid was localized in the right lower quadrant under ultrasound guidance and marked on the skin appropriately. The patient was then prepped and draped in the usual sterile fashion and the skin was anesthetized with 1% Lidocaine. An ultrasound guided paracentesis was then performed using a Turkel needle. Approximately 6 liters of clear yellow fluid was removed. 80 mL was sent to lab. The patient tolerated the procedure well and there were no immediate complications. Impression: Ultrasound guided right lower quadrant paracentesis as discussed above. 6 liters of clear yellow fluid was removed. Images reviewed, interpreted, and dictated by Dr. Haseeb Gil. Transcribed by Gabriel Velasco PA-C. Ultrasound renal limited Narrative: RENAL ULTRASOUND HISTORY: Renal failure PROCEDURE: Sonographic images of the kidneys were obtained in both longitudinal and transverse orientations. FINDINGS: Limited images of the liver parenchyma demonstrate normal echogenicity. The right kidney measures 9.5 cm in length. It has normal echogenicity. There is no hydronephrosis. The left kidney measures 11.0 cm in length. It has normal echogenicity. There is no hydronephrosis. Impression: Normal renal ultrasound. Images reviewed, interpreted, and dictated by Ronnell Tom MD XR chest AP portable Narrative: PORTABLE CHEST 11/30/2024 11:29 AM HISTORY: Hypertension, decompensated cirrhosis. COMPARISON: None. FINDINGS: The heart is proper size. The mediastinum is unremarkable. Prominent perihilar interstitial changes are noted, likely secondary to vascular congestion. There is no pneumothorax. The osseous structures are unremarkable. Impression: Prominent interstitial changes are likely secondary to vascular congestion. Continued follow-up is recommended. Images reviewed, interpreted, and dictated by Dr. Jose C Calhoun. Transcribed by Marielos Sotelo PA-C. 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 Patient Status: Routine IP Study Location: PortableTechnical Quality: Adequate visualization History/Tech Notes: Indication: shortness of breath R06.02 Impression: ######################################## Normal sized left ventricle. Normal left ventricular wall thickness. Visually estimated ejection fraction 55% +/- 5%. Borderline systolic strain pattern. Increased left atrial pressure (Grade II diastolic dysfunction). Sclerotic aortic valve leaflets. Trivial pericardial effusion measuring 0.3cm. posteriorly. ######################################## Measurements Summary: LVEDd: 5.33 cm LVESd: 3.64 cm IVSEd: 0.88 cm AO Root:2.7 cm LVPWd: 0.87 cm Contractility Score Normal Left Ventricular contractility was noted. LV regional wall motion: (0-Not visualized 1-Normal 2-Hypokinesis 3-Akinesis 4-Dyskinesis 5-Aneurysm) Left Ventricle Peak E-wave: 1.31 Peak A-wave: 1.35 m/s E/A ratio: 0.97 m/s Volume [id number] LV length: 8.51 cm ml Volume .96 ml LVOT diameter: 1.79 cm Normal sized left ventricle. Normal left ventricular wall thickness. Visually estimated ejection fraction 55% +/- 5%. Borderline systolic strain pattern. Increased left atrial pressure (Grade II diastolic dysfunction). No left ventricular masses or thrombi. Right Ventricle Diastolic dimension: 3.92 RV systolic pressure: 28.12 mmHg cm Normal sized right ventricle. Normal TAPSE c/w normal right ventricular function Left Atrium LA dimension: 4 cm LA volume:83.13 ml LA/Aorta: 1.48 Abnormal left atrial volume index 39 ml/m^2. Intact atrial septum. No atrial mass or thrombus. Right Atrium Normal sized right atrium. Intact atrial septum. No atrial mass or thrombus. Mitral Valve Deceleration time: 261.56 msec Thickened mitral valve leaflets. Mild (1+) mitral regurgitation. No mitral stenosis. No masses or vegetations seen. Aortic Valve AV VTI: 53.02 Area continuity: 1.13 Peak velocity: 2.38 m/s cm cm^2 Peak gradient: 22.63 LVOT VTI: 23.85 Mean velocity: 1.76 mmHg cm m/s Mean gradient: 13.56 mmHg Sclerotic aortic valve leaflets. Mildly thickend free edges of the aortic valve leaflets. No aortic regurgitation. No aortic stenosis. No masses or vegetations seen. Tricuspid Valve TR velocity: 2.51 m/s TR gradient: 25.33876 mmHg Estimated RAP: 3 mmHg RVSP: 28.12 mmHg Structurally normal tricuspid valve. Trace tricuspid valve regurgitation. No tricuspid stenosis. No masses or vegetations seen. Pulmonic Valve Acceleration time: 110.37 msec PASP: 28.12 mmHg Structurally normal pulmonic valve. Trace pulmonary valve regurgitation. No pulmonic stenosis. No masses or vegetations seen. Great Vessels Aorta Aortic Root: 2.7 cm LVOT Diameter: 1.79 cm Visualized thoracic aorta is normal. Normal aortic root. No evidence of dissection. Normal IVC with appropriate collapse. Pericardium / Pleura Trivial pericardial effusion measuring 0.3cm. posteriorly. Other Ascites noted in subcostal imaging. Recent Labs Lab(s) Units 12/01/24 0812 12/01/24 0537 12/01/24 0406 12/01/24 0405 11/30/24 1938 11/30/24 0513 11/30/24 0340 NA meq/L -- -- -- 145 -- -- 144 K meq/L -- -- -- 4.2 -- -- 4.6 CL meq/L -- -- -- 116* -- -- 115* CO2 meq/L -- -- -- 20* -- -- 20* BUN mg/dL -- -- -- 68.3* -- -- 74.2* CREATININE mg/dL -- -- -- 4.13* -- -- 4.15* ALBUMIN g/dL -- -- -- 2.8* -- -- 2.2* GLUCOSE mg/dL 103 107 -- 120* 106 < > 86 CALCIUM mg/dL -- -- -- 8.0* -- -- 8.3* WBC K/??L -- -- 1.7* -- -- -- 1.9* PLT K/CU MM -- -- 54* -- -- -- 64* HGB GM/DL -- -- 6.7* -- -- -- 8.2* < > = values in this interval not displayed. Intake/Output Summary (Last 24 hours) at 12/01/2024 1006 Last data filed at 12/01/2024 0941 Gross per 24 hour Intake 470 ml Output -- Net 470 ml Assessment 1- Anasarca - liver disease and low albumin level vs nephrotic syndrome plus NSAID for one month 2- GERMÁN on CKD - Unknown baseline - on Lisinopril at home. Third spacing and recently increased doseof diuretics. Pre-renal azotemia - On lisinopril and NSAID and recently increased dose of diureticswith low albumin level vs HRS- Feurea 27% suggestive of pre-renal azotemia 3- Hypoalbuminemia - UPCR 0.19 -non nephrotic range proteinuria 4- Pancytopenia -Hematology following 5- hx of DM 6- HTN 7- NAFLD 8- Ascites Plan: - Albumin infusion - Transfuse unit of blood - EGD today - Continue to hold diuretics for today - Monitor I/O - Avoid nephrotoxic agents - no NSAID - Continue to hold Lisinopril and metformin for GERMÁN - Renal diet - Adjust meds per renal function - No emergent need of PHARMACOMETRICIAN - Monitor H/H and transfuse for Hgb less than 7.0 Discussed with patient * DAWOOD Pat/Amada - 12/01/2024 8:45 AM EDT Images from the original note were not included. Inpatient Occupational Therapy Attempt to Treat Patient Name: Mary Coronel Birthday: 1960 Date of Attempt: 12/01/2024 Pt off floor for EGD at this time. OT to check back as time allows. Electronically signed by DAWOOD Pat/Amada - 12/01/2024 - 1:38 PM EDT * NBA Gaona - 11/30/2024 2:31 PM EDT Images from the original note were not included. Inpatient Occupational Therapy Initial Evaluation Patient Name: Mary Coronel Date of : 1960 Date of Evaluation: 11/30/24 Start Time: 1431 Stop Time: 1455 Session Duration: 24 minutes Total time: 34 minutes spent, including 10 minutes for nursing collaboration, thorough chart and systems review, and clinical reasoning. This patient is a 64 y.o. female admitted on 11/30/2024 with Anasarca [R60.1]. Past Medical History: Diagnosis Date Cirrhosis, non-alcoholic (HCC) Diabetes mellitus (HCC) Hypertension No past surgical history on file. General Visit type: Initial Evaluation Approved by: Nurse Doan Patient disposition upon entry: Patient verified by name, Patient verified by date of , Supinein bed, Head of bed >30 degrees, Side rails up Precautions Weightbearing status: No restrictions Precautions: Fall risk Isolation precautions: Standard LDA/Brace/Protective equipment: Lines, drains, and airways: blood pressure cuff, peripheral IV, telemetry Subjective Subjective: Pt agreeable Patient's stated goal: to get stronger and decrease my fear of falling Pain No-patient has no complaints of pain Cognition Cognition: Overall cognitive status: Patient is awake and alert, attending to directions appropriately, demonstrating good problem solving skills, and aware of any deficits or impairments, if present. Arousal/alertness: Appropriate response to stimuli Orientation level: Oriented x4 Following commands: Follows all commands and directions without difficulty Vision/Hearing History Visual/Hearing History: Current Vision: Wears glasses at all times Does not have glasses at hospital Current Hearing: No hearing deficits Home Living Lives with: Alone Receives help from: Patient does not need help from others at baseline Type of home: Apartment Home layout: One level, No stairs to enter Bathroom layout: Tub/shower unit Home equipment available: Pt does not have equipment of own, but reported utilizing neighbor's rollator for mobility outside of apartment Functional Mobility PLOF: Patient reports being modified independent with all functional mobility with the use of Rollator (borrowed from neighbor) for mobility outside of apartment and furniture walks inside apartment Activities of Daily Living PLOF: Patient reports being complete independent with all ADL's prior toonset. Does the patient have a recent history of falls?: No Objective Vitals Pre-intervention vitals Heart rate: 102 beats per minute Blood pressure: 147/74 mmHg SpO2: 97% O2: Room Air Post-intervention vitals Heart rate: 101 beats per minute Blood pressure: 151/82 mmHg Range of Motion Assessment Normal: Patient is able to use bilateral upper extremities for reaching/grasping/holding objects inall planes, including above shoulder level Strength Assessment Good: Patient is able to use arms to pull, push, and hold moderate to maximal resistance at shoulder, elbow, and wrist. L UE shoulder and elbow are slightly weaker than R UE. L shoulder flexion 3+/5, L bicep 4-/5, L tricep 4-/5; R shoulder flexion 4/5, R bicep 4/5, R tricep 4/5 Coordination/Sensation Coordination: The patient's fine motor coordination is intact. [id number]: LUE (3) Minimal Impairment: Able to accomplish activity; slightly less than normal control, speed, and steadiness, RUE (3) Minimal Impairment: Able to accomplish activity; slightly less than normal control, speed, and steadiness Sensation: Light touch:Location tested: B hands Intact, normal response, Comment: Pt reported decreased sensation to B LE Bed Mobility Supine to sit: Contact guard assistance , Head of bed elevated, Use of bedrails Transfers Sit to stand:Minimal assistance, 1 person assist, Gait belt used, Rolling walker used, (CGA from elevated surface, Min A from lower surface) Bed to chair transfer:Contact guard, Gait belt used, Rolling walker used ADLs Lower body dressing:Maximal Assistance, Seated in chair, to don socks Outcome Measures [facility] Daily Living Functional Assessment How much help from another person does the patient currently need: Putting on and taking off regular lower body clothing? 2 Bathing, including washing, rinsing, and drying? 3 Toileting, including using toilet, bedpan or urinal? 2 Putting on and taking off regular upper body clothing? 3 Taking care of personal grooming such as brushing teeth? 3 Eating meals? 3 1=Total/Unable (Total assist/Dependent) 2=A lot (Maximal/Moderate assist) 3=A little (Minimal/Contact guard/Supervision/Setup) 4=None (Modified independent/Independent) The patient's [facility] raw score is 16. The patient currently has 53.32% functional impairment. Clinicians are most likely to recommend inpatient/SNF/terminologist care for patients with scores between 6-17, home health for scores between 18-22, and routine discharge for scores above 22. Balance Static sitting balance:Good: Patient able to maintain balance without handheld support; limited postural sway Dynamic sitting balance:Fair: Patient accepts minimal challenge; able to maintain balance while turning head/trunk Static standing balance:Fair: Patient able to maintain balance with handheld support, may require occasional minimal assistance Dynamic standing balance:Fair: Patient accepts minimal challenge; able to maintain balance while turning head/trunk Activity Tolerance Patient limited with activity/intervention due to fatigue, deconditioning, and weakness Treatment The pt was supine in bed upon therapist's arrival. Pt completed supine to sit EOB with CGA utilizing bed features. Pt completed sit to stand with Min A-Mod A from lower surface. She completed bed to chair transfer supported at RW with CGA. Pt required Max A to doff/don socks. She completed sit to stand from elevated surface with CGA and tolerated standing ~1 min with BUE support before fatiguing with knee buckling. Pt was seated in bedside chair. Pt was educated on use of call light for assist with functional transfers and ADL tasks. Assessment Assessment Prior to admission, patient was independent with ADLs, was independent with functional mobility using assistive devices. Currently the patient presents with decreased balance , decreased safety awareness , difficulty with ADLs, edema, fall risk, impaired endurance, impaired functional mobility, impaired IADLs. These deficits currently impact the patient's ability to perform ADLs and functional mobility, putting them at an increased risk for increased falls, decreased quality of life, further functional decline, further decreased strength, increased caregiver burden. The patient has good rehabpotential and would benefit from OT services to address the aforementioned functional deficits in order to return to prior level of function. The patient's current AMPAC score of 16 would indicate that the patient will likely be appropriate for home with home health and family support post hospitalization. Plan Recommendations Discharge recommendations: Discharge recommendations pending progression of acute hospital stay secondary to the patient's medical status DME recommendations: Unable to make adaptive/DME recommendations at this time. Treatment Plan: ADL training, Functional mobility/transfer training, Safety training, Strengthening OT Frequency/Duration: 3x/week for 14 days Goals Grooming: face washing, standing with standby assist Lower body dressing: donning and doffing lower body clothing with standby assist. Toileting: toileting with contact guard assist. Functional transfers: stand pivot transfer with standby assist. HEP: The pt will demonstrate ability to complete BUE HEP to increase/maintain BUE strength to promote independence with ADL tasks. Target Date: 12/14/2024 Goals were discussed with patient Education Patient educated on safety, use of call light, role of occupational therapy, ADLs, functional mobility and following, they were able to verbalize understanding. Interdisciplinary Communication Following treatment, therapist communicated with nursing regarding patient's performance during therapy session. Patient Disposition Upon Leaving Patient disposition upon leaving: Sitting in bedside chair, All needs met and within reach, Call light/pull cord in reach, Feet elevated, Nursing aware/notified If this patient discharges prior to next therapy session, this note serves as the patient's discharge summary. Electronically signed by DAWOOD Gaona/Amada - 11/30/2024 - 3:21 PM EDT OT Evaluation Completed * Timothy Bai MD - 11/30/2024 1:35 PM EDT Patient is seen and examined at bedside, patient was admitted this morning, my assessment plan: This is a 64 years old female who was transferred from outside hospital to be evaluated by nephrology for GERMÁN, she was noted to have abdominal distention and bilateral lower extremity edema upon admission. #Nonalcoholic liver cirrhosis with ascites - Plan for paracentesis today 11/30 , GI saw the patient, patient is on po rifaximin and lactulose, will monitor CMP daily, GI is planning for EGD tomorrow - Will add IV Protonix daily #Anasarca likely secondary to hepatorenal syndrome #GERMÁN -Nephrology input is appreciated, holding Lasix and Aldactone, patient is receiving albumin, avoid nephrotoxic agent and renally dose medications, monitor BMP and electrolytes daily #Diabetes: Holding metformin, continue insulin sliding scale and monitor blood glucose per protocol #Hyperlipidemia: Holding statin due to abnormal LFTs #Pancytopenia: -Normal iron and vitamin B12 levels, monitor CBC daily and transfuse for hemoglobin less than 7, nochemical DVT prophylaxis due to thrombocytopenia - Will consult hematology for possible need of bone marrow biopsy #Vitamin D deficiency: Will start on p.o. vitamin D supplementation weekly #Will add mechanical DVT prophylaxis MDM: Labs and images are noted and reviewed, monitor labs and electrolytes daily. Plan as detailed above. Discussed with nursing staff. Discharge disposition: PT/OT is consulted, likely home with home health pending clinical improvement documented in this encounter H&P Notes * Huey Hurtado MD - 11/30/2024 2:36 AM EDT Images from the original note were not included. History of Present Illness History Of Present Illness Mary Coronel is a 64 y.o. female presenting with past medical history of NAFLD October 2024, hypertension, hyperlipidemia, diabetes, CKD, CAD, arthritis. Patient presented to [facility] with swollen abdomen, abdominal discomfort and bilateral lower extremity pitting edema.Patient's BUN/creatinine elevated, and patient subsequently transferred to [facility] for hepatorenal syndrome evaluation. Admits to 4 weeks of progressive SOB, FUNK, orthopnea, lower extremity swelling, abdominal swelling, ataxia issues. States beforementioned symptoms have gotten worse over past week. Also states she has gained 16 pounds over past week. Admitts to chronic RUQ, diffuse abdominal discomfort which is worsened over past week. Reports decreased urine output x 7 days. Patient informed by outside emergency room that she may require temporary dialysis during this hospitalization. Reports no current GI follow-up for cirrhosis. Also admits to dark tarry stools recently. Patient also suffered intermittent altered mental status of the last few days. Patient's niece forced patient to visit [facility] emergency room today she really loves me. States that she lives alonewithout home support at baseline. States she takes oral Lasix at home at baseline. States over pastfew days she has doubled home Lasix dosage without increase in urine output. Denies history of kidney, heart, lung disease. States that she was taking Mounjaro for diabetes June 2024. Originally lost 30 pounds on Mounjaro. States after she developed weight gain over past several months, she self discontinued Mounjaro therapy 4 weeks ago. Admits to using sliding scale insulin currently at home for diabetes control. Past Medical History She has no past medical history on file. Nonalcoholic fatty liver disease diagnosed in October Diabetes Hypertension Hyperlipidemia CAD with stents Surgical History She has no past surgical history on file. Social History She reports that she has never smoked. She has never been exposed to tobacco smoke. She has never used smokeless tobacco. She reports that she does not drink alcohol and does not use drugs. Lives alone Family History Her family history is not on file. Allergies Patient has no known allergies. Medications No current outpatient medications Review of Systems Review of Systems see HPI Last Recorded Vitals Blood pressure (!) 145/67, pulse 101, temperature 97.5 ??F (36.4 ??C), temperature source Oral, resp. rate 16, height 1.651 m (5' 5 ), weight 102.1 kg (225 lb), SpO2 96%. Physical Exam Constitutional: Appearance: Normal appearance. HENT: Head: Normocephalic and atraumatic. Right Ear: Tympanic membrane normal. Left Ear: Tympanic membrane normal. Nose: Nose normal. Mouth/Throat: Mouth: Mucous membranes are moist. Eyes: Extraocular Movements: Extraocular movements intact. Pupils: Pupils are equal, round, and reactive to light. Cardiovascular: Rate and Rhythm: Normal rate and regular rhythm. Pulses: Normal pulses. Heart sounds: Normal heart sounds. Pulmonary: Comments: Decreased bibasilar breath sounds Abdominal: General: Bowel sounds are normal. Tenderness: There is guarding. Comments: Swollen distended's belly (see pictures), fluid wave appreciated Musculoskeletal: Cervical back: Normal range of motion. Right lower leg: Edema present. Left lower leg: Edema present. Comments: +1 bilateral slight pitting edema, swollen edematous ankle/tibial region but only slightly pitting. Skin: General: Skin is warm. Capillary Refill: Capillary refill takes less than 2 seconds. Neurological: Mental Status: She is alert and oriented to person, place, and time. Psychiatric: Mood and Affect: Mood normal. Behavior: Behavior normal. Diagnostic Results No results found for any previous visit. No image results found. Assessment & Plan Active Problems: There are no active Hospital Problems. Mary Coronel is a 64 y.o. female presenting with past medical history of NAFLD October 2024, hypertension, hyperlipidemia, diabetes, CAD, arthritis. Patient presented to [facility] with swollen abdomen, abdominal discomfort and bilateral lower extremity pitting edema. Patient diagnosed with anasarca, and admitted for hepatorenal/temporary dialysis evaluation. Problems as listed below: [facility] labs reviewed prior to current hospitalization: Hemoglobin 8.5, creatinine 4.6, BNP 26,[address] abdomen/pelvis: Ascites I ordered stat CMP, lactic acid, ammonia, procalcitonin, CBC, mag, PT, PTT, INR CBC at time of admission Anasarca likely secondary to hepatorenal syndrome: - Likely secondary to hepatic/renal dysfunction. IV albumin 25% Q6 x 2 days. Lasix 40 mg IV every 12. CT abdomen/pelvis from [facility] shows ascites. Therefore ordered paracentesis for a.m. Consult nephrology given patient may require temporary dialysis if anasarca does not improve with IV albumin/Lasix administration. Rocephin 2 g IV every 24 SBP prophylaxis. Order renal ultrasound to evaluate kidney function. - Procalcitonin, blood cultures, lactic acid to rule out infection. Nonalcoholic fatty liver disease: - Ordered appropriate test to calculate MELD score. Consult GI. As above in anasarca section. Aldactone 25 mg p.o. daily GERMÁN: - As above in anasarca section Diabetes: Sign scale insulin, ACHS Accu-Cheks, check hemoglobin A1c, diabetic diet. Hold metformin since patient may require testing with IV contrast dye. Hypertension: Hydralazine 10 mg IV every 4 as needed SBP greater than 160. Hold lisinopril due to GERMÁN. Hyperlipidemia atorvastatin 20 mg p.o. daily CAD hold aspirin/Plavix since patient scheduled for paracentesis in a.m. MDM - Patient's hepatorenal syndrome poses risk to life and bodily function. Systemic symptoms from hepatorenal syndrome including renal/liver dysfunction, extreme weight gain, lethargy, confusion, abdominal discomfort. - I made decision to admit patient to hospital for hepatorenal syndrome management as listed above,and possible temporary dialysis. Disposition planning: Hopefully within next 5 days if patient does not require routine dialysis. 55 minutes of care time spent on this patient by myself 11/30/2024 Electronically signed by: Huey Hurtado MD, 11/30/2024 at 2:36 AM documented in this encounter Procedure Notes * Sujit Blackman PA-C - 12/10/2024 11:29 AM EDT Pre-Op Diagnosis: Ascites Post-Op Diagnosis: Same Procedure Performed: US guided paracentesis Procedural PA: Sujit Blackman PA-C Supervising Radiologist: SABINE Yang Sedation: None Findings: Successful US guided paracentesis Complications: No immediate complications EBL: Trace/ not significant Specimen(s) removed: clear and yellow fluid. No fluid sent to the lab. See the dictated final report for total fluid drained. Full report to follow. Cosigned by Haseeb Gil MD at 12/10/2024 2:33 PM EDT * Sandra Ramsey PA-C - 12/02/2024 12:08 PM EDT Pre-Op Diagnosis: Abnormal Labs Post-OP Diagnosis: Same Procedure Performed: CT guided bone marrow biopsy Procedural PA: Sandra Ramsey PA-C Supervising Radiologist: SABINE Yang Sedation: Versed and Fentanyl Findings: Technically successful bone marrow biopsy from left iliac wing. Complications: No immediate complications EBL: None Specimen(s) removed: Bone marrow aspirations and bone marrow core biopsy Full report to follow. * Moo Velasco PA-C - 11/30/2024 3:56 PM EDT Pre-Op Diagnosis: Ascites Post-Op Diagnosis: Same Procedure Performed: US guided paracentesis Procedural PA: Moo Velasco PA-C Supervising Radiologist: SABINE Yang Sedation: None Findings: Successful US guided paracentesis Complications: No immediate complications EBL: Minimal Specimen(s) removed: clear and yellow fluid. 80 ml fluid sent to the lab. See the dictated final report for total fluid drained. Full report to follow. Cosigned by Haseeb Gil MD at 11/30/2024 4:59 PM EDT documented in this encounter Consult Notes * Blanka Malagon MD - 12/07/2024 2:31 PM EDT Images from the original note were not included. PULMONARY AND CRITICAL CARE Consult Note Date of Service: 12/07/2024 HPI: This is a 64 y.o. year old female with past medical history as below. She initially presented to [facility] with swollen abdomen, abdominal discomfort, and bilateral lower extremity pain. Her creatinine was elevated and as a result, she was transferred to [facility] for he patorenal syndrome. Upon arrival here, she endorsed a 4-week history of shortness of breath, orthopnea, and ataxia along with the abdominal and lower extremity edema. She also endorsed recent black, tarry stools as well. Upon arrival here, labs of significance included WBC 1.9, platelets 64, creatinine 4.15, and CK 356. She underwent a paracentesis on 11/30 with 6 liters removed. EGD on 12/01 revealed a duodenal ulcer, but no evidence of active bleeding. She underwent a bone marrow biopsy on 12/02 and pathology result is still pending. On 12/03, she began having atrial fib with some runs of non-sustained v. tach. She is currently beingtransferred to the unit and Pulmonary has been consulted for critical care management. 12/04 I have seen and examined the patient this morning, her sister at bedside, have discussed with the patient and his sister about the patient condition answered all the questions and concerns, theyexpressed transcending, discussed with nephrology about the patient condition and plan, chest x-shawna 12/04 interpreted independently showed low lung volume bilaterally with worsening pulmonary edemaand vascular congestion, on nasal cannula 3 L oxygen saturation 95%, respiratory 27, pressure 140/65, pulse 86, temperature 98.2, ABG 7.29/43/100/6 with bicarb of 21, hemoglobin 9, platelets 65, WBC 4.1, sodium 146, creatinine 3.38, fluid balance +300 mL, on ceftriaxone. 12/06: Seen and examined, 64 years old female, laying in bed, 2 L nasal cannula, never smoker, denies any home oxygen at home, has been complaining of edema in the lower extremities/abdominal girth/ascites 12/07- re consult fore warseing ABG PAST MEDICAL HISTORY: Past Medical History: Diagnosis Date Cirrhosis, non-alcoholic (HCC) Diabetes mellitus (HCC) Hypertension PAST SURGICAL HISTORY: Past Surgical History: Procedure Laterality Date ESOPHAGOGASTRODUODENOSCOPY (EGD),REMOVAL FOREIGN BODY N/A 12/01/2024 Procedure: EGD, WITH FOREIGN BODY REMOVAL; Surgeon: Scott Daley MD; [facility]; Service: Gastroenterology; Laterality: N/A; Allergies: No Known Allergies SOCIAL HISTORY: Social History Tobacco Use Smoking status: Never Passive exposure: Never Smokeless tobacco: Never Substance Use Topics Alcohol use: Never Drug use: Never FAMILY HISTORY: family history is not on file. Review of Systems Constitutional: Positive for malaise/fatigue. Respiratory: Positive for shortness of breath. Negative for cough and sputum production. Cardiovascular: Positive for leg swelling. Negative for chest pain. Gastrointestinal: Negative for abdominal pain, nausea and vomiting. Neurological: Positive for weakness. All other systems reviewed and are negative. Vital Signs Temp: [97.5 ??F (36.4 ??C)-98.2 ??F (36.8 ??C)] 98.2 ??F (36.8 ??C) Pulse: [73-84] 73 Resp: [18] 18 BP: (123-150)/(60-74) 123/60 Current: Temp: 98.2 ??F (36.8 ??C) Pulse: 73 Resp: 18 BP: 123/60 SpO2: 98 % 24 Hour: BP Min: 123/60 Max: 150/69 Temp Min: 97.5 ??F (36.4 ??C) Max: 98.2 ??F (36.8 ??C) Pulse Min: 73 Max: 84 Resp Min: 18 Max: 18 SpO2 Min: 98 % Max: 100 % Weight Min: 98.2 kg (216 lb 6.4 oz) Max: 98.2 kg (216 lb 6.4 oz) Intake/Output: I/O last 3 completed shifts: In: - Out: 500 [Urine:500] Physical Exam Constitutional: General: She is not in acute distress. Appearance: She is obese. She is ill-appearing. Comments: 3L NC HENT: Head: Normocephalic. Nose: Nose normal. Mouth/Throat: Mouth: Mucous membranes are moist. Pharynx: Oropharynx is clear. Eyes: Pupils: Pupils are equal, round, and reactive to light. Cardiovascular: Rate and Rhythm: Normal rate and regular rhythm. Pulses: Normal pulses. Heart sounds: Normal heart sounds. Pulmonary: Effort: Pulmonary effort is normal. No respiratory distress. Breath sounds: Examination of the right-lower field reveals decreased breath sounds. Examination ofthe left-lower field reveals decreased breath sounds. Decreased breath sounds present. Abdominal: General: Bowel sounds are normal. Palpations: Abdomen is soft. Musculoskeletal: Cervical back: Normal range of motion. Right lower leg: Edema present. Left lower leg: Edema present. Skin: General: Skin is warm and dry. Capillary Refill: Capillary refill takes less than 2 seconds. Neurological: Mental Status: She is alert and oriented to person, place, and time. Mental status is at baseline. Psychiatric: Mood and Affect: Mood normal. Behavior: Behavior normal. Vent / O2 Management: LABS Results for orders placed or performed during the hospital encounter of 11/30/24 (from the past 24 hours) Glucose, Nova Meter Status: Abnormal Collection Time: 12/06/24 4:06 PM Result Value Ref Range POC-GLUCOSE 134 (H) 70 - 110 mg/dL Laboratory Scientist [id number] Glucose, Nova Meter Status: Abnormal Collection Time: 12/06/24 7:26 PM Result Value Ref Range POC-GLUCOSE 170 (H) 70 - 110 mg/dL Laboratory Scientist [id number] CBC - Hemogram (SJ-BKR) Status: Abnormal Collection Time: 12/07/24 3:59 AM Result Value Ref Range WBC 3.5 (L) 4.0 - 10.0 K/??L RBC 2.58 (L) 3.93 - 5.22 M/??L Hemoglobin 7.9 (L) 11.2 - 15.7 GM/DL Hematocrit 25.6 (L) 34.1 - 44.9 % MCV 99 (H) 79 - 95 fL MCH 30.6 25.6 - 32.2 pg MCHC 30.9 (L) 32.2 - 35.5 GM/DL RDW 17.4 (H) 11.7 - 14.4 % Platelets 54 (L) 140 - 375 K/CU MM MPV 12.2 9.4 - 12.3 fL Magnesium Status: Normal Collection Time: 12/07/24 3:59 AM Result Value Ref Range Magnesium 2.4 1.6 - 2.6 mg/dL Comprehensive Metabolic Panel Status: Abnormal Collection Time: 12/07/24 3:59 AM Result Value Ref Range Sodium 146 (H) 136 - 145 meq/L Potassium 3.8 3.4 - 5.1 meq/L Chloride 118 (H) 98 - 112 meq/L CO2 20 (L) 22 - 29 meq/L Calcium 8.4 8.4 - 10.2 mg/dL Glucose 166 (H) 82 - 115 mg/dL BUN 72.9 (H) 9.8 - 20.1 mg/dL Creatinine 3.13 (H) 0.57 - 1.11 mg/dL BUN/Creatinine 23 (H) 8 - 20 eGFR (mL/min/1.73m2) 16 (L) >=60 mL/min/1.73m2 Albumin 4.1 3.5 - 5.0 g/dL Alkaline Phosphatase 48 40 - 150 U/L ALT 9 <=34 U/L AST 24 11 - 34 U/L Total Bilirubin 0.9 0.2 - 1.2 mg/dL Protein, Total 6.4 6.4 - 8.3 g/dL Globulin 2.3 (L) 2.5 - 4.1 g/dL Anion Gap 12 4 - 12 A/G Ratio 1.8 0.7 - 1.9 Osmolality Calc 315.8 mOsm/kg Ammonia Status: Normal Collection Time: 12/07/24 3:59 AM Result Value Ref Range Ammonia 44 18 - 72 ??mol/L Glucose, Nova Meter Status: Abnormal Collection Time: 12/07/24 5:51 AM Result Value Ref Range POC-GLUCOSE 159 (H) 70 - 110 mg/dL Laboratory Scientist [id number] ECG 12 lead Status: None (In process) Collection Time: 12/07/24 10:29 AM Result Value Ref Range VENTRICULAR RATE EKG/MIN 91 BPM ATRIAL RATE (MCT) 91 BPM MI Interval 142 ms QRS-INTERVAL (MSEC) 88 ms QT Interval 376 ms QTC Interval 462 ms P [place] 39 degrees R AXIS (MCT) -3 degrees T Wave [place] 4 degrees Bryan Diagnosis Normal sinus rhythm Nonspecific T wave abnormality Abnormal ECG When compared with ECG of 06-DEC-2024 13:16, No significant change was found Blood gas, arterial Status: Abnormal Collection Time: 12/07/24 10:36 AM Result Value Ref Range pH, Arterial 7.26 (L) 7.35 - 7.45 pCO2, Arterial 50 (H) 35 - 45 mm Hg pO2, Arterial 43 (LL) 80 - 100 mm Hg HCO3, Arterial 22 20 - 26 mmol/L Base Excess, Arterial -4.7 (L) -2.0 - 2.0 mmol/L O2 Sat, Arterial 80.4 (L) 95.0 - 100.0 % CTO2 ARTERIAL 9.4 mmol/L THB ARTERIAL 8.5 (L) 12.0 - 18.0 g/dL PaO2/FIO2 calculated 203.0 [facility] COLLECTION SITE Right Radial Arterial Puncture Yes Blood Gas PT Temperature C 37.0 Sen's Test Acceptable Critical Values Notification Critical Blood gas called to TRAY LORENZ RN . [place] [id number] and confirmed on 12/07/2024 10:51 ABG Number of Draw Attempts 1 FIO2 21.0 Blood Gas Temperature Corrected Results No No Glucose, Nova Meter Status: Abnormal Collection Time: 12/07/24 10:54 AM Result Value Ref Range POC-GLUCOSE 146 (H) 70 - 110 mg/dL Laboratory Scientist [id number] Radiology Radiology Results (last day) Procedure Component Value Units Date/Time XR chest AP portable [[id number]] Resulted: 12/07/24 1353 Order Status: Sent Updated: 12/07/24 1426 Microbiology: Microbiology Results (last 7 days) Procedure Component Value Units Date/Time Anaerobic Culture [[id number]] Collected: 11/30/24 1603 Order Status: Completed Specimen: Peritoneal Fluid from Body Fluid Updated: 12/05/24 0634 Result No Anaerobic growth Narrative: Specimen Description: peritoneal fluid Blood Culture [[id number]] Collected: 11/30/24 0340 Order Status: Completed Specimen: Blood from Arm, Left Updated: 12/05/24 0501 Result No growth in 5 days Blood Culture [[id number]] Collected: 11/30/24 0342 Order Status: Completed Specimen: Blood from Arm, Right Updated: 12/05/24 0501 Result No growth in 5 days Body Fluid Culture + Gram Stain [[id number]] Collected: 11/30/24 1603 Order Status: Completed Specimen: Peritoneal Fluid from Body Fluid Updated: 12/03/24 0907 Result No growth Gram Stain Result No organisms seen No cells seen Narrative: Specimen Description: peritoneal fluid Body Fluid/CSF - Path Review (SJ) [[id number]] Collected: 11/30/24 1603 Order Status: Completed Specimen: Peritoneal Fluid from Body Fluid Updated: 12/03/24 0654 SENT TO PATHOLOGY FOR REVIEW Yes Scan Result Mesothelial cells. MD German 12/02/2024 AFB Culture And Stain [[id number]] Collected: 11/30/24 1603 Order Status: Completed Specimen: Peritoneal Fluid from Body Fluid Updated: 12/01/24 1410 AFB Smear No acid fast bacilli seen Narrative: Specimen Description: peritoneal fluid Glucose, body fluid [[id number]] Collected: 11/30/24 1603 Order Status: Completed Specimen: Body Fluid from Peritoneal Fluid Updated: 12/01/24 0710 Glucose, Body Fluid 107 mg/dL BODY FLUID TYPE Peritoneal Narrative: This test has been modified from the golf course laborer's instructions and its performance characteristics were determined by the laboratory. The reference intervals and other method performance specifications are unavailable for this test. It is recommended to interpret body fluid concentrations in comparison with the corresponding serum or plasma concentrations and to integrate test results into the clinical context. Protein, body fluid [[id number]] Collected: 11/30/24 1603 Order Status: Completed Specimen: Body Fluid from Peritoneal Fluid Updated: 12/01/24 0710 Protein, Fluid 1.9 g/dL BODY FLUID TYPE Peritoneal Narrative: This test has been modified from the golf course laborer's instructions and its performance characteristics were determined by the laboratory. The reference intervals and other method performance specifications are unavailable for this test. It is recommended to interpret body fluid concentrations in comparison with the corresponding serum or plasma concentrations and to integrate test results into the clinical context. Urine Culture [[id number]] Collected: 11/30/24 1135 Order Status: Completed Specimen: Urine, Clean Catch Updated: 12/01/24 0649 Result Recollect Specimen - 3 or more organisms suggests contamination Body fluid cell count with differential [[id number]] (Abnormal) Collected: 11/30/241602 Order Status: Completed Specimen: Peritoneal Fluid from Body Fluid Updated: 11/30/242048 Appearance Cloudy Color Yellow BODY FLUID TYPE Peritoneal Auto WBC/Nucleated Cells BF 85 /uL Comment: Please refer to specific WBC/Nucleated Cell Count Body Fluid reference ranges below: For Pleural: 0-1000 Peritoneal: 0-1000 Pericardial:0-1000 Synovial: 0-200 Auto RBC BF <3,000 /uL Comment: Please refer to specific RBC Cell Count Body Fluid reference ranges below: Pleural: 0-10,000 Peritoneal: 0-10,000 Pericardial:0-10,000 Synovial:0-30 Narrative: There is normally no readily obtainable pleural, peritoneal and pericardial fluid, hence normal elements for these potential fluids are not defined. DIFFERENTIAL, BODY FLUID [[id number]] Collected: 11/30/241602 Order Status: Completed Specimen: Peritoneal Fluid from Body Fluid Updated: 11/30/242048 Neutrophils Fluid 5 % Lymphocytes Fluid 46 % Unidentified Mononuclear Cells BF 49 % Lactate dehydrogenase (LDH), body fluid [[id number]] Collected: 11/30/241602 Order Status: Completed Specimen: Peritoneal Fluid from Body Fluid Updated: 11/30/24 181 LDH, Fluid 71 U/L BODY FLUID TYPE Peritoneal Narrative: This test has been modified from the golf course laborer's instructions and its performance characteristics were determined by the laboratory. The reference intervals and other method performance specifications are unavailable for this test. It is recommended to interpret body fluid concentrations in comparison with the corresponding serum or plasma concentrations and to integrate test results into the clinical context. Fungus Culture W/ROSA MARIA Or Nimisha Ink [[id number]] Collected: 11/30/241602 Order Status: Completed Specimen: Peritoneal Fluid from Body Fluid Updated: 11/30/24 1754 ROSA MARIA Prep No fungal elements seen Narrative: Specimen Description: peritoneal fluid Total Protein, Body Fluid(SENDOUT) [[id number]] Collected: 11/30/241602 Order Status: Canceled Specimen: Peritoneal Fluid from Body Fluid Updated: 11/30/24 1634 Glucose Body Fluid(SENDOUT) [[id number]] Collected: 11/30/241602 Order Status: Canceled Specimen: Peritoneal Fluid from Body Fluid Updated: 11/30/24 1634 ECHO Normal sized left ventricle. Normal left ventricular wall thickness. Visually estimated ejection fraction 55% +/- 5%. Borderline systolic strain pattern. Increased left atrial pressure (Grade II diastolic dysfunction). Sclerotic aortic valve leaflets. Trivial pericardial effusion measuring 0.3cm. posteriorly ASSESSMENT: Pulmonary Acute hypoxemic respiratory failure Acute pulmonary edema and pulmonary vascular congestion Never smoker GI Decompensated cirrhosis, new diagnosis MELD-NA score = 21 Hyperammonemia - improved S/p paracentesis on 11/30 - 6L removed S/p EGD on 12/01 - duodenal ulcer, no evidence of active bleeding Cardiac Grade 2 diastolic dysfunction New-onset atrial fib with non-sustained runs of v. tach - improved, on Amio gtt Renal Acute on chronic kidney disease, baseline unknown Hypernatremia Heme Pancytopenia S/p bone marrow biopsy on 12/02 - path pending Neuro Awake, alert Endo DM PLAN: Acute hypoxic /hypercapnic respiratory failure likely related to acute pulmonary edema which is most likely related to diastolic heart failure/ Chronic kidney disease/GIORDANO cirrhosis/ascites Ultrasound of the liver: November 2024 underlying cirrhosis Paracentesis 11/30/2024: 6 L removed Echo EF 25%, grade 2 diastolic dysfunction, increased left atrial pressure trivial pericardial effusion Chest x-ray. Acute pulmonary edema Picture of volume overload likely related to combination of acute diastolic heart failure/renal failure/ascites with volume overload anasarca/pericardial effusion/ascites/lower extremity edema Nephrology following, recommended to continue with albumin/diuretics no indication for PHARMACOMETRICIAN BIPAP 14/8 Fio2 50%,ABG in 2 hrs Patient not on home oxygen never smoker Continue diuresis. Monitoring kidney function A-fib rate controlled, goal-directed therapy for diastolic heart failure No significant pleural effusion for thoracentesis If needed repeat chest x-ray. Otherwise continue diuresis Pulmonary twill follow . If ABG not improving ,or worsening mental status recommended ICU Case discussed during round. I have personally evaluated the patient and performed a [id number] diagnostic evaluation on this patient; I have reviewed history, performed physical examination, reviewed laboratory studies. , andreviewed images independent of radiologist. I have actively directed the medical care, formulated assessemnt and plan of care. Patient requires a high complexity of decision making for assessment. 46 minutes pulmonary care clinical time was spent. Voice moss bleacher technology ([employer]) is used for dictation of this note and sound-alike words might be erroneously placed despite reviewing the note for accuracy.Errors in dictation may reflect use of voice recognition software and not all errors in moss bleacher may have been detectedprior to signing * KENNEY Zaragoza - 12/07/2024 10:29 AM EDTAssociated Order(s): IP CONSULT TO CARE COORDINATION Summary: Pending SNF/Rehab Discharge Plan Progress Note [facility] can offer bed for patient, semi-private room. Address: [facility], [place] [address] - about 56 minutes (36 miles) from patient's address. [facility] started precert, 12/07, 10:33. Insurance will require updated PT/OT notes for rehab. Other SNF options: [facility] (over an hour away from home address), [facility], [facility]. Sister is requesting rehab. On 12/06, patient declined therapy. On 12/05, patient ambulated 360' with RW, 1 person assist. If patient declines therapy 12/07, Insurance will most likely deny patient SNF/rehab and patient will go home with home health or with family/independent with self care. Update 12/07, 1232 - patient NMR - worsening dx; CM asked FCR to cancel precert. Patient transferring to ICU. 2:23 pm - SW/CM attempted to call patient's sister/caregiver however, SW/CM experiencing phone issues at this time. Caregiver believes patient is being DC. CM unable to communicate patient being transferred to ICU and asked bedside RN to communicate with sister/caregiver. KENNEY Zaragoza * KENNEY Zaragoza - 12/06/2024 10:14 AM EDTAssociated Order(s): IP CONSULT TO CARE COORDINATION Summary: CM/CC Consult Discharge Plan Progress Note CM/CC Consulted for SNF placement. SW/CM sent referrals within 50 miles of patient's home address. No accepting facilities or bed offers at this time. Attempted to call Jojo da silva at phone # [phone], received busy tone, unable to reach sister at this time. Patient will need a precert. KENNEY Zaragoza * Rea Bishop, ANALISA - 12/06/2024 9:[address] ADIME NUTRITION ASSESSMENT ADIME Nutrition Assessment The patient is a 64 y.o. female admitted with acute renal failure, live cirrhosis, ascites (a/sp paracentesis) Present on Admission: Anasarca (Admitting Diagnoses) Nutrition Evaluation Type: Initial Assessment Reason for Evaluation: RD screen for LOS Subjective Comments: 12/06: Pt on heart healthy, 60g CHO diet with poor PO intakes reported. 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 Requested chicken noodle soup for lunch. Agreeable to ONS TID. Past Medical/Surgical History: Past Medical History: Diagnosis Date Cirrhosis, non-alcoholic (HCC) Diabetes mellitus (HCC) Hypertension Past Surgical History: Procedure Laterality Date ESOPHAGOGASTRODUODENOSCOPY (EGD),REMOVAL FOREIGN BODY N/A 12/01/2024 Procedure: EGD, WITH FOREIGN BODY REMOVAL; Surgeon: Scott Daley MD; [facility]; Service: Gastroenterology; Laterality: N/A; Vitals and Basic Assessment: Vitals: Vitals: 12/06/24 0930 BP: Pulse: Resp: Temp: SpO2: 97% Oxygen:O2 Flow Rate (L/min): 2 L/min Mumtaz Scale: Mumtaz Scale Score: 19 Last BM: Last BM Date: 12/03/24 GI: rounded, +BS Edema: Edema: Right lower extremity, Left lower extremity, Generalized, 2+ Skin: intact Allergies: No Known Allergies Scheduled Medications: Current Facility-Administered Medications Medication Dose Route Frequency Provider Last Rate Last Admin acetaminophen (TYLENOL) tablet 500 mg 500 mg oral Q4H PRN Huey Hurtado MD albuterol 2.5 mg /3 mL (0.083 %) nebulizer solution 2.5 mg 2.5 mg nebulization Q6H PRN Albert Garcia MD amiodarone (PACERONE) tablet 200 mg 200 mg oral Daily Deysi Foss MD 200 mg at 12/06/24 0857 ammonium lactate (LAC-HYDRIN) lotion 12% topical PRN Huey Hurtado MD amoxicillin-clavulanate (AUGMENTIN) 500-125 mg per tablet 1 tablet 1 tablet oral BID Mary Carmen Mcfadden MD 1 tablet at 12/06/24 1257 atorvastatin (LIPITOR) tablet 20 mg 20 mg oral Every Night Huey Hurtado MD 20 mg at 12/05/24 2151 benzocaine-menthoL (CEPACOL) lozenge 1 lozenge 1 lozenge buccal Q2H PRN Timothy Bai MD cefTRIAXone (ROCEPHIN) 2 g in sodium chloride 0.9 % (NS) 50 mL MELIDA IVPB 2 g intravenous Q24H MD Barney IVPB Stopped at 12/05/24 2230 dextrose 50% (D50W) injection 25 g 25 g intravenous Q15 Min PRN Huey Hurtado MD ergocalciferol (DRISDOL) capsule 50,000 Units 50,000 Units oral Q7 Days Timothy Bai MD 50,000 Units at 11/30/24 1459 gabapentin (NEURONTIN) capsule 300 mg 300 mg oral TID Hill Boo MD 300 mg at 12/06/24 0857 glucagon injection 1 mg 1 mg intraMUSCULAR Q15 Min PRN Huey Hurtado MD glucose chew tab 16 g 16 g oral Q15 Min PRN Huey Hurtado MD hydrALAZINE (APRESOLINE) injection 10 mg 10 mg intravenous Q6H PRN Huey Hurtado MD 10 mg at 349 insulin lispro (HUMALOG, ADMELOG) injection 0-18 Units 0-18 Units subcutaneous 4x Daily AC Huey Hurtado MD 3 Units at 12/06/24 1238 lactulose (CHRONULAC) 10 gram/15 mL solution 10 g 10 g oral BID Timothy Bai MD 10 g at 12/06/24 0858 melatonin tablet 3 mg 3 mg oral Every Night PRN Huey Hurtado MD ondansetron (ZOFRAN-ODT) disintegrating tablet 4 mg 4 mg oral Q8H PRN Huey Hurtado MD Or ondansetron (ZOFRAN) injection 4 mg 4 mg intravenous Q8H PRN Huey Hurtado MD pantoprazole (PROTONIX) EC tablet 40 mg 40 mg oral BID Mary Carmen Mcfadden MD [Held by provider] phenylephrine (SILVIA-SYNEPHRINE) 40 mg in sodium chloride 0.9 % (NS) 250 mL infusion 20-260 mcg/min intravenous Titrated Timothy Bai MD Stopped at 12/04/24 1039 prochlorperazine (COMPAZINE) injection 10 mg 10 mg intravenous Q6H PRN Huey Hurtado MD rifAXIMin (XIFAXAN) tablet 550 mg 550 mg oral BID Destiney Llanes APRN 550 mg at 12/06/24 0857 sodium chloride 0.9 % infusion 20 mL/hr intravenous Deacon Hodgson DO sodium chloride flush 10 mL 10 mL intravenous PRN Huey Hurtado MD Drips: none Pertinent Labs: Recent Labs 12/04/24 0104 12/04/24 0334 12/04/24 0335 12/04/24 0613 12/04/24 0815 12/04/24 1052 12/04/24 1053 12/04/24 1627 12/05/24 0320 12/05/24 0800 12/05/24 0810 12/05/24 1536 12/05/24 1701 12/06/24 0313 12/06/24 0526 12/06/24 1036 NA -- 143 -- -- -- -- 146* -- 146* -- -- -- -- 146* -- -- K -- 3.7 -- -- -- -- 3.6 -- 3.6 -- -- -- -- 3.9 -- -- CO2 -- 20* -- -- -- -- 20* -- 20* -- -- -- -- 20* -- -- BUN -- 58.6* -- -- -- -- 61.1* -- 59.4* -- -- -- -- 63.3* -- -- CREATININE -- 3.43* -- -- -- -- 3.38* -- 3.14* -- -- -- -- 3.37* -- -- GLUCOSE -- 203* -- < > -- < > 137* < > 148* -- < > -- < > 149* 143* 150* CALCIUM -- 8.3* -- -- -- -- 8.5 -- 8.3* -- -- -- -- 8.6 -- -- PROT -- 6.7 -- -- -- -- -- -- 6.4 -- -- -- -- 7.0 -- -- ALBUMIN -- 4.2 -- -- -- -- -- -- 4.3 -- -- -- -- 4.6 -- -- BILITOT -- 1.1 -- -- -- -- -- -- 1.2 -- -- -- -- 1.2 -- -- ALKPHOS -- 47 -- -- -- -- -- -- 44 -- -- -- -- 47 -- -- AST -- 21 -- -- -- -- -- -- 23 -- -- -- -- 21 -- -- ALT -- 11 -- -- -- -- -- -- 8 -- -- -- -- 11 -- -- AMMONIA -- -- 30 -- -- -- -- -- 41 -- -- -- -- 47 -- -- HGB -- -- 8.9* -- 8.8* 9.0* -- -- < > 8.2* 8.2* -- 8.1* -- 8.7* -- -- HCT < > -- 28.4* -- 29.0* -- -- -- 25.9* -- -- -- -- 28.2* -- -- < > = values in this interval not displayed. Lab Results Component Value Date HGBA1C 4.9 11/30/2024 Anthropometrics: Ht: Height: 167.6 cm (5' 6 ) Wt: Weight: 99.3 kg (219 lb) Wt hx: 206# (04/19/23), 200# (03/26/24) BMI: Body mass index is 35.35 kg/m??. UBW: UTO IBW: 130# Percent IBW: 168% Current Nutrition Intake: Diet Orders: Diet Order(s): Heart Healthy Diet Additional Modifiers: Consistent Carbohydrate Supplements: Diet Supplements: None Intake: averaging 25% of past 5 meals Enteral Nutrition? 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 Likely fluid related. Assessment of Malnutrition: Patient does not meet criteria for specified degree of malnutrition at this time. Will re-evaluate at follow-up as appropriate. Nutrition Diagnoses: Problem #1: Inadequate Oral Intake Etiology: inability to meet metabolic demand Signs/Symptoms: 25% intakes; need for ONS Status: New Nutrition Interventions and Recommendations: General, healthful diet and Commercial beverage Nutrition Monitoring and Goals: 1. Continue heart healthy, 60g CHO diet. Will add Glucerna TID Goal: intakes >50% 2. Monitor glucose. Adjust insulin prn Goal: glucose 80-140 3. Obtain wt 2x weekly Goal: avoid involuntary significant wt change Nutrition Risk Level: Moderate Risk Rea Bishop RD * Hector Deshpande MD - 12/03/2024 3:15 PM EDTAssociated Order(s): Inpatient consult to Pulmonology Images from the original note were not included. Inpatient consult to Pulmonology Consult performed by: Kirsty Tuttle APRN Consult ordered by: Timothy Bai MD Reason for consult: Critical care management PULMONARY AND CRITICAL CARE Consult Note Date of Service: 12/03/2024 Time: 3:16 PM HPI: This is a 64 y.o. year old female with past medical history as below. She initially presented to [facility] with swollen abdomen, abdominal discomfort, and bilateral lower extremity pain. Her creatinine was elevated and as a result, she was transferred to [facility] for he patorenal syndrome. Upon arrival here, she endorsed a 4-week history of shortness of breath, orthopnea, and ataxia along with the abdominal and lower extremity edema. She also endorsed recent black, tarry stools as well. Upon arrival here, labs of significance included WBC 1.9, platelets 64, creatinine 4.15, and CK 356. She underwent a paracentesis on 11/30 with 6 liters removed. EGD on 12/01 revealed a duodenal ulcer, but no evidence of active bleeding. She underwent a bone marrow biopsy on 12/02 and pathology result is still pending. On 12/03, she began having atrial fib with some runs of non-sustained v. tach. She is currently beingtransferred to the unit and Pulmonary has been consulted for critical care management. PAST MEDICAL HISTORY: Past Medical History: Diagnosis Date Cirrhosis, non-alcoholic (HCC) Diabetes mellitus (HCC) Hypertension PAST SURGICAL HISTORY: Past Surgical History: Procedure Laterality Date ESOPHAGOGASTRODUODENOSCOPY (EGD),REMOVAL FOREIGN BODY N/A 12/01/2024 Procedure: EGD, WITH FOREIGN BODY REMOVAL; Surgeon: Scott Daley MD; [facility]; Service: Gastroenterology; Laterality: N/A; Allergies: No Known Allergies SOCIAL HISTORY: Social History Tobacco Use Smoking status: Never Passive exposure: Never Smokeless tobacco: Never Substance Use Topics Alcohol use: Never Drug use: Never FAMILY HISTORY: family history is not on file. Review of Systems Constitutional: Positive for malaise/fatigue. Respiratory: Positive for shortness of breath. Negative for cough and sputum production. Cardiovascular: Positive for leg swelling. Negative for chest pain. Gastrointestinal: Negative for abdominal pain, nausea and vomiting. Neurological: Positive for weakness. All other systems reviewed and are negative. Vital Signs Temp: [97.7 ??F (36.5 ??C)-99 ??F (37.2 ??C)] 97.9 ??F (36.6 ??C) Pulse: [90-108] 94 Resp: [12-18] 16 BP: (142-164)/(58-71) 147/65 Current: Temp: 97.9 ??F (36.6 ??C) Pulse: 94 Resp: 16 BP: (!) 147/65 SpO2: 96 % 24 Hour: BP Min: 142/71 Max: 164/64 Temp Min: 97.7 ??F (36.5 ??C) Max: 99 ??F (37.2 ??C) Pulse Min: 90 Max: 108 Resp Min: 12 Max: 18 SpO2 Min: 89 % Max: 100 % Weight Min: 102.3 kg (225 lb 8 oz) Max: 102.3 kg (225 lb 8 oz) Intake/Output: I/O last 3 completed shifts: In: 1162.7 [P.O.:580; I.V.:132.7; Blood:250; IV Piggyback:200] Out: 1075 [Urine:475; Stool:600] Physical Exam Constitutional: General: She is not in acute distress. Appearance: She is obese. She is ill-appearing. Comments: 3L NC HENT: Head: Normocephalic. Nose: Nose normal. Mouth/Throat: Mouth: Mucous membranes are moist. Pharynx: Oropharynx is clear. Eyes: Pupils: Pupils are equal, round, and reactive to light. Cardiovascular: Rate and Rhythm: Normal rate and regular rhythm. Pulses: Normal pulses. Heart sounds: Normal heart sounds. Pulmonary: Effort: Pulmonary effort is normal. No respiratory distress. Breath sounds: Examination of the right-lower field reveals decreased breath sounds. Examination ofthe left-lower field reveals decreased breath sounds. Decreased breath sounds present. Abdominal: General: Bowel sounds are normal. Palpations: Abdomen is soft. Musculoskeletal: Cervical back: Normal range of motion. Right lower leg: Edema present. Left lower leg: Edema present. Skin: General: Skin is warm and dry. Capillary Refill: Capillary refill takes less than 2 seconds. Neurological: Mental Status: She is alert and oriented to person, place, and time. Mental status is at baseline. Psychiatric: Mood and Affect: Mood normal. Behavior: Behavior normal. Vent / O2 Management: LABS Results for orders placed or performed during the hospital encounter of 11/30/24 (from the past 24 hours) Glucose, Nova Meter Status: Abnormal Collection Time: 12/02/24 5:18 PM Result Value Ref Range POC-GLUCOSE 128 (H) 70 - 110 mg/dL Laboratory Scientist [id number] Hemoglobin Status: Abnormal Collection Time: 12/02/24 6:03 PM Result Value Ref Range Hemoglobin 9.1 (L) 11.2 - 15.7 GM/DL Glucose, Nova Meter Status: Abnormal Collection Time: 12/02/24 8:06 PM Result Value Ref Range POC-GLUCOSE 144 (H) 70 - 110 mg/dL Laboratory Scientist [id number] Hemoglobin Status: Abnormal Collection Time: 12/02/24 11:06 PM Result Value Ref Range Hemoglobin 8.9 (L) 11.2 - 15.7 GM/DL Glucose, Nova Meter Status: Abnormal Collection Time: 12/03/24 1:10 AM Result Value Ref Range POC-GLUCOSE 164 (H) 70 - 110 mg/dL Laboratory Scientist [id number] Glucose, Nova Meter Status: Abnormal Collection Time: 12/03/24 1:12 AM Result Value Ref Range POC-GLUCOSE 168 (H) 70 - 110 mg/dL Laboratory Scientist [id number] Glucose, Nova Meter Status: Abnormal Collection Time: 12/03/24 5:13 AM Result Value Ref Range POC-GLUCOSE 142 (H) 70 - 110 mg/dL Laboratory Scientist [id number] Magnesium Status: Normal Collection Time: 12/03/24 7:39 AM Result Value Ref Range Magnesium 2.5 1.6 - 2.6 mg/dL Comprehensive Metabolic Panel Status: Abnormal Collection Time: 12/03/24 7:39 AM Result Value Ref Range Sodium 147 (H) 136 - 145 meq/L Potassium 4.1 3.4 - 5.1 meq/L Chloride 119 (H) 98 - 112 meq/L CO2 20 (L) 22 - 29 meq/L Calcium 8.3 (L) 8.4 - 10.2 mg/dL Glucose 145 (H) 82 - 115 mg/dL BUN 53.7 (H) 9.8 - 20.1 mg/dL Creatinine 3.48 (H) 0.57 - 1.11 mg/dL BUN/Creatinine 15 8 - 20 eGFR (mL/min/1.73m2) 14 (L) >=60 mL/min/1.73m2 Albumin 4.4 3.5 - 5.0 g/dL Alkaline Phosphatase 49 40 - 150 U/L ALT 7 <=34 U/L AST 21 11 - 34 U/L Total Bilirubin 1.1 0.2 - 1.2 mg/dL Protein, Total 6.8 6.4 - 8.3 g/dL Globulin 2.4 (L) 2.5 - 4.1 g/dL Anion Gap 12 4 - 12 A/G Ratio 1.8 0.7 - 1.9 Osmolality Calc 309.7 mOsm/kg Ammonia Status: Normal Collection Time: 12/03/24 7:39 AM Result Value Ref Range Ammonia 36 18 - 72 ??mol/L CBC with automated diff Status: Abnormal Collection Time: 12/03/24 8:31 AM Result Value Ref Range WBC 2.8 (L) 4.0 - 10.0 K/??L RBC 2.68 (L) 3.93 - 5.22 M/??L Hemoglobin 8.2 (L) 11.2 - 15.7 GM/DL Hematocrit 26.1 (L) 34.1 - 44.9 % MCV 97 (H) 79 - 95 fL MCH 30.6 25.6 - 32.2 pg MCHC 31.4 (L) 32.2 - 35.5 GM/DL RDW 17.5 (H) 11.7 - 14.4 % Platelets 55 (L) 140 - 375 K/CU MM MPV 10.0 9.4 - 12.3 fL % Neutros 79 (H) 34 - 71 % % Lymphs 13 (L) 19 - 52 % % Monos 6 5 - 13 % % Eos 0 (L) 1 - 6 % % Baso 0 0 - 1 % NRBC Absolute <0.01 0 - 0.012 K/ul # Neutros 2.22 1.56 - 6.13 K/??L # Lymphs 0.37 (L) 1.18 - 3.74 K/??L # Monos 0.18 (L) 0.24 - 0.86 K/??L # Eos <0.03 (L) 0.04 - 0.36 K/ L # Baso <0.03 0.01 - 0.08 K/ L Immature Granulocytes-Relative 0.70 (H) 0.01 - 0.43 % # IG <0.03 0.00 - 0.03 K/uL ECG 12 lead Status: None (In process) Collection Time: 12/03/24 10:39 AM Result Value Ref Range VENTRICULAR RATE EKG/MIN 97 BPM ATRIAL RATE (MCT) 97 BPM MI Interval 150 ms QRS-INTERVAL (MSEC) 88 ms QT Interval 362 ms QTC Interval 459 ms P [place] 40 degrees R AXIS (MCT) 8 degrees T Wave [place] -8 degrees Bryan Diagnosis Normal sinus rhythm Normal ECG No previous ECGs available Glucose, Nova Meter Status: Abnormal Collection Time: 12/03/24 10:45 AM Result Value Ref Range POC-GLUCOSE 156 (H) 70 - 110 mg/dL Laboratory Scientist [id number] ECG 12 lead Status: None (In process) Collection Time: 12/03/24 2:16 PM Result Value Ref Range VENTRICULAR RATE EKG/MIN 136 BPM ATRIAL RATE (MCT) 73 BPM QRS-INTERVAL (MSEC) 88 ms QT Interval 304 ms QTC Interval 457 ms R AXIS (MCT) -11 degrees T Wave [place] -58 degrees Bryan Diagnosis Atrial fibrillation with rapid ventricular response Possible Anterolateral infarct , age undetermined Abnormal ECG When compared with ECG of 03-DEC-2024 10:39, Atrial fibrillation has replaced Sinus rhythm Radiology Radiology Results (last day) Procedure Component Value Units Date/Time CT bone marrow biopsy [[id number]] Collected: 12/02/24 1524 Order Status: Completed Updated: 12/02/24 1556 Narrative: CT GUIDED BONE MARROW ASPIRATION AND CORE BIOPSY. HISTORY: Pancytopenia. ATTENDING RADIOLOGIST: Dr. Haseeb Gil. PHYSICIAN ELDER ASSISTANT: Sandra Ramsey PA-C PROCEDURE: After informed consent was obtained and a time-out was performed, the patient was prepped and draped in the usual sterile fashion over the left iliac bone. Utilizing local anesthesia and sterile technique with an osteo core system, access to the left iliac bone was obtained. 2 bone marrow aspirations were obtained. Spicules were confirmed. In addition, a bone marrow core was obtained. The patient received minimal conscious sedation. The patient tolerated the procedure well and left the department in good condition. CONSCIOUS SEDATION: 2 mg of IV Versed and 50 mcg of Fentanyl were administered. Continuous vital sign monitoring was used. An RN was present during the sedation process. Overall sedation time was 30 minutes. Impression: Status post CT guided biopsy bone marrow aspiration and core biopsy without immediate complication. Images reviewed, interpreted, and dictated by Dr. Haseeb Gil. Transcribed by Sandra Ramsey PA-C. Microbiology: Microbiology Results (last 7 days) Procedure Component Value Units Date/Time Body Fluid Culture + Gram Stain [[id number]] Collected: 11/30/24 1603 Order Status: Completed Specimen: Peritoneal Fluid from Body Fluid Updated: 12/03/24 0907 Result No growth Gram Stain Result No organisms seen No cells seen Narrative: Specimen Description: peritoneal fluid Anaerobic Culture [[id number]] Collected: 11/30/24 1603 Order Status: Completed Specimen: Peritoneal Fluid from Body Fluid Updated: 12/03/24 0842 Result No Anaerobic growth Narrative: Specimen Description: peritoneal fluid Body Fluid/CSF - Path Review () [[id number]] Collected: 11/30/24 160 Order Status: Completed Specimen: Peritoneal Fluid from Body Fluid Updated: 12/03/24 0654 SENT TO PATHOLOGY FOR REVIEW Yes Scan Result Mesothelial cells. MD German 12/02/2024 Blood Culture [[id number]] Collected: 11/30/24 0340 Order Status: Completed Specimen: Blood from Arm, Left Updated: 12/03/24 0501 Result No growth in 3 days Blood Culture [[id number]] Collected: 11/30/24 0342 Order Status: Completed Specimen: Blood from Arm, Right Updated: 12/03/24 0501 Result No growth in 3 days AFB Culture And Stain [[id number]] Collected: 11/30/24 160 Order Status: Completed Specimen: Peritoneal Fluid from Body Fluid Updated: 12/01/24 1410 AFB Smear No acid fast bacilli seen Narrative: Specimen Description: peritoneal fluid Glucose, body fluid [[id number]] Collected: 11/30/24 160 Order Status: Completed Specimen: Body Fluid from Peritoneal Fluid Updated: 12/01/24 0710 Glucose, Body Fluid 107 mg/dL BODY FLUID TYPE Peritoneal Narrative: This test has been modified from the golf course laborer's instructions and its performance characteristics were determined by the laboratory. The reference intervals and other method performance specifications are unavailable for this test. It is recommended to interpret body fluid concentrations in comparison with the corresponding serum or plasma concentrations and to integrate test results into the clinical context. Protein, body fluid [[id number]] Collected: 11/30/24 1603 Order Status: Completed Specimen: Body Fluid from Peritoneal Fluid Updated: 12/01/24 0710 Protein, Fluid 1.9 g/dL BODY FLUID TYPE Peritoneal Narrative: This test has been modified from the golf course laborer's instructions and its performance characteristics were determined by the laboratory. The reference intervals and other method performance specifications are unavailable for this test. It is recommended to interpret body fluid concentrations in comparison with the corresponding serum or plasma concentrations and to integrate test results into the clinical context. Urine Culture [[id number]] Collected: 11/30/24 1135 Order Status: Completed Specimen: Urine, Clean Catch Updated: 12/01/24 0649 Result Recollect Specimen - 3 or more organisms suggests contamination Body fluid cell count with differential [[id number]] (Abnormal) Collected: 11/30/241602 Order Status: Completed Specimen: Peritoneal Fluid from Body Fluid Updated: 11/30/242048 Appearance Cloudy Color Yellow BODY FLUID TYPE Peritoneal Auto WBC/Nucleated Cells BF 85 /uL Comment: Please refer to specific WBC/Nucleated Cell Count Body Fluid reference ranges below: For Pleural: 0-1000 Peritoneal: 0-1000 Pericardial:0-1000 Synovial: 0-200 Auto RBC BF <3,000 /uL Comment: Please refer to specific RBC Cell Count Body Fluid reference ranges below: Pleural: 0-10,000 Peritoneal: 0-10,000 Pericardial:0-10,000 Synovial:0-30 Narrative: There is normally no readily obtainable pleural, peritoneal and pericardial fluid, hence normal elements for these potential fluids are not defined. DIFFERENTIAL, BODY FLUID [[id number]] Collected: 11/30/241602 Order Status: Completed Specimen: Peritoneal Fluid from Body Fluid Updated: 11/30/242048 Neutrophils Fluid 5 % Lymphocytes Fluid 46 % Unidentified Mononuclear Cells BF 49 % Lactate dehydrogenase (LDH), body fluid [[id number]] Collected: 11/30/241602 Order Status: Completed Specimen: Peritoneal Fluid from Body Fluid Updated: 11/30/24 1819 LDH, Fluid 71 U/L BODY FLUID TYPE Peritoneal Narrative: This test has been modified from the golf course laborer's instructions and its performance characteristics were determined by the laboratory. The reference intervals and other method performance specifications are unavailable for this test. It is recommended to interpret body fluid concentrations in comparison with the corresponding serum or plasma concentrations and to integrate test results into the clinical context. Fungus Culture W/ROSA MARIA Or Nimisha Ink [[id number]] Collected: 11/30/24 160 Order Status: Completed Specimen: Peritoneal Fluid from Body Fluid Updated: 11/30/24 1754 ROSA MARIA Prep No fungal elements seen Narrative: Specimen Description: peritoneal fluid Total Protein, Body Fluid(SENDOUT) [[id number]] Collected: 11/30/24 1603 Order Status: Canceled Specimen: Peritoneal Fluid from Body Fluid Updated: 11/30/24 1634 Glucose Body Fluid(SENDOUT) [[id number]] Collected: 11/30/24 1603 Order Status: Canceled Specimen: Peritoneal Fluid from Body Fluid Updated: 11/30/24 1634 Urine Culture [[id number]] Collected: 11/30/24 1135 Order Status: Canceled Specimen: Urine, Clean Catch Updated: 11/30/24 1206 Normal sized left ventricle. Normal left ventricular wall thickness. Visually estimated ejection fraction 55% +/- 5%. Borderline systolic strain pattern. Increased left atrial pressure (Grade II diastolic dysfunction). Sclerotic aortic valve leaflets. Trivial pericardial effusion measuring 0.3cm. posteriorly ASSESSMENT: Pulmonary Acute hypoxemic respiratory failure Pulmonary vascular congestion Never smoker GI Decompensated cirrhosis, new diagnosis MELD-NA score = 21 Hyperammonemia - improved S/p paracentesis on 11/30 - 6L removed S/p EGD on 12/01 - duodenal ulcer, no evidence of active bleeding Cardiac Hemodynamically stable New-onset atrial fib with non-sustained runs of v. tach - improved, on Amio gtt Diastolic HFpEF Renal Acute on chronic kidney disease, baseline unknown Hypernatremia Heme Pancytopenia S/p bone marrow biopsy on 12/02 - path pending Neuro Awake, alert Endo DM PLAN: PLAN: Maintain sat >89%, currently on nasal cannula 2 L. Awake and alert Keep head of bed at 30 degrees and maintain aspiration precautions. Nonsustained V. tach, A-fib with RVR, given IV amiodarone bolus, started on amiodarone drip. EP cardiology was consulted. If the heart rate is not controlled we will use Cardizem drip. Echocardiogram: Echo on 11/30 showed ejection fraction 55 to 60%, grade 2 diastolic dysfunction, trivial epicardial effusion. Hemodynamic: Stable Hemodynamic support: Maintain MAP above 65. Antibiotics: On ceftriaxone. Follow up on cultures. Hypernatremia, hyperchloremia, metabolic acidosis, acute kidney injury, possible hepatorenal syndrome, nephrology was consulted. Started on albumin. Continue to hold metformin and lisinopril. Per nephrology there is no PHARMACOMETRICIAN indication at this time. Ultrasound renal on 11/30 showed normal renal ultrasound. Bun/Cr reviewed Monitor renal functions and electrolytes closely. Replace electrolytes per protocol. Maintain serum potassium of 4.0, magnesium of 2.0 and phosphorusof 2.5 and normal latest calcium with appropriate replacement. Monitor I&O. Avoid nephrotoxins. Nutrition: started on diet. GI was consulted. EGD on 12/01 showed duodenal ulcer and small varices. GI recommended to continue pantoprazole twice daily for 8 weeks, repeat EGD in 8 to 12 weeks. Ultrasound liver on 11/30 showed cirrhosis, no focal liver lesion identified, small volume perihepatic ascites. Paracentesis on 11/30 with removal of 6 L On lactulose and rifaximin. Started on bowel Regimen. Hyperglycemia: Target glucose 140-180 mg/dL. SSI, monitor BS. Hold home antidiabetic medications. Pancytopenia, Acute anemia status post blood transfusion on 12/01 and 12/02. Status post bone marrow biopsy on 12/02, pathology still pending. Hematology/oncology consulted. Monitor H&H. Transfuse as needed. Musculoskeletal: Consulted PT/OT. GI prophylaxis: Pantoprazole DVT prophylaxis: SCDs. AM labs and chest x-ray ordered. Code Status: Current Code Status Full code Prognosis: Guarded. At risk for respiratory and cardiovascular complications. Disposition: The patient remain critically ill, would recommend to keep the patein in the ICU. CRITICAL CARE TIME: Cumulative critical care time spent on the patient for the day excluding procedures 34 minutes. Patient seen and examined at bedside. I performed history and physical examination. I reviewed laboratory studies, imaging studies, other diagnostic studies, and inpatient medications. Chest imaging studies visualized and reviewed independent of radiologist. Case discussed with the multidisciplinary team including nurse practitioner, nurse, RT, wire coiner, pharmacist, and case management during multidisciplinary round. I Dr.Hazim Jeramy MD, have personally evaluated the patient and performed a [id number] diagnostic evaluation on this patient; I have Obtained history, performed physical examination, reviewed laboratory studies. I have reviewed images independent of radiologist. I have actively directed the medical care, formulated diagnosis, and the plan of care. Patient requires a high complexity of decision making for assessment. Voice moss bleacher technology ([employer]) is used for dictation of this note and sound-alike words might be erroneously placed despite reviewing the note for accuracy. Errors in dictation may reflect use of voice recognition software and not all errors in moss bleacher may have been detected prior to signing. It may contain errors and words that were not intended to be used. Please contact the provider for errors or clarifications. * Deysi Foss MD - 12/03/2024 11:11 AM EDTAssociated Order(s): FS_MODEL_IP IP CONSULT TO ELECTROPHYSIOLOGY EP Consult Note Patient Name: Mary Coronel Admission Date: 11/30/2024 Primary Care Provider: Kaitlynn Find-a-Doc Chief Complaint/Reason for Consult: No chief complaint on file. History of Present Illness: Mary Coronel is a 64 y.o. female, admitted on: 11/30/2024 1:43 AM. presented to [facility] with swollen abdomen, abdominal discomfort and bilateral lower extremity pitting edema. Patient's BUN/creatinine elevated, and patient subsequently transferred to [facility] for hepatorenal syndrome evaluation. Admits to 4 weeks of progressive SOB, FUNK, orthopnea, lower extremit y swelling, abdominal swelling, ataxia issues. States beforementioned symptoms have gotten worse over past week. Also states she has gained 16 pounds over past week. Admitts to chronic RUQ, diffuse abdominal discomfort which is worsened over past week. Reports decreased urine output x 7 days. Pt was admitted with nonalcoholic liver cirrhosis with ascites and underwent paracentesis on 11/30 with 6L removed. EGD revealed a duodenal ulcer and small varices. While on telemetry, pt is having some afib and brief runs of NSVT. Asymptomatic. BP stable. EP consulted for evaluation and management. Medications: Prior to Admission Medications: Medications Prior to Admission Medication Sig Dispense Refill Last Dose/Taking albuterol 90 mcg/actuation inhaler Inhale 1 puff by mouth every 6 (six) hours as needed for wheezing. ammonium lactate (AMLACTIN) 12 % cream Apply 1 g topically as needed for dry skin. aspirin 81 MG chewable tablet Take 1 tablet (81 mg total) by mouth daily. atorvastatin (LIPITOR) 20 MG tablet Take 1 tablet (20 mg total) by mouth nightly. bisoprolol (ZEBETA) 10 MG tablet Take 1 tablet (10 mg total) by mouth 2 (two) times daily. cholecalciferol (VITAMIN D3) 125 mcg (5,000 unit) tablet Take 2 tablets (10,000 Units total) by mouth daily. clopidogreL (PLAVIX) 75 mg tablet Take 1 tablet (75 mg total) by mouth daily Look-alike/Sound-alike medication. colestipoL (COLESTID) 1 gram tablet Take 2 tablets (2 g total) by mouth daily. dicyclomine (BENTYL) 10 MG capsule Take 1 capsule (10 mg total) by mouth 2 (two) times daily. furosemide (LASIX) 40 MG tablet Take 1 tablet (40 mg total) by mouth 2 (two) times daily. gabapentin (NEURONTIN) 800 MG tablet Take 1 tablet (800 mg total) by mouth 3 (three) times daily. Max Daily Amount: 2,400 mg HYDROcodone-acetaminophen (NORCO) 10-325 mg per tablet Take 1 tablet by mouth every 6 (six) hours as needed for pain. Max Daily Amount: 4 tablets hydrOXYzine pamoate (VISTARIL) 50 MG capsule Take 1 capsule (50 mg total) by mouth every night as needed for itching (sleep) Look-alike/Sound-alike medication. insulin aspart U-100 (NovoLOG) 100 unit/mL (3 mL) inpn Inject under the skin 4 (four) times daily before meals and nightly. lisinopriL (ZESTRIL) 10 MG tablet Take 1 tablet (10 mg total) by mouth 2 (two) times daily. metFORMIN (GLUCOPHAGE) 1000 MG tablet Take 1 tablet (1,000 mg total) by mouth 2 (two) times daily with breakfast and dinner Look-alike/Sound-alike medication. tirzepatide 7.5 mg/0.5 mL pnij Inject 7.5 mg under the skin every 7 days. triamcinolone (KENALOG) 0.1 % topical cream Apply 0.1 Applications topically daily to affected area.. Scheduled Medications: albumin human 25% 25 g intravenous Q6H NAS 25 g at 12/03/24 0611 atorvastatin 20 mg oral Every Night 20 mg at 12/02/242101 cefTRIAXone 2 g intravenous Q24H ergocalciferol 50,000 Units oral Q7 Days 50,000 Units at 11/30/24 1459 gabapentin 300 mg oral TID 300 mg at 12/03/24 0839 insulin lispro 0-18 Units subcutaneous 4x Daily AC 3 Units at 12/03/24 0650 lactulose 10 g oral TID 10 g at 12/03/24 0839 pantoprazole 40 mg intravenous BID 40 mg at 12/03/24 0839 rifAXIMin 550 mg oral BID 550 mg at 12/03/24 0839 Current Infusions: Current Facility-Administered Medications Medication Dose Route Frequency Provider Last Rate Last Admin acetaminophen (TYLENOL) tablet 500 mg 500 mg oral Q4H PRN Huey Hurtado MD albumin human 25 % IV 25 g 25 g intravenous Q6H NAS Timothy Bai MD 25 g at 12/03/24 0611 albuterol 2.5 mg /3 mL (0.083 %) nebulizer solution 2.5 mg 2.5 mg nebulization Q6H PRN Albert Garcia MD ammonium lactate (LAC-HYDRIN) lotion 12% topical PRN Huey Hurtado MD atorvastatin (LIPITOR) tablet 20 mg 20 mg oral Every Night Huey Hurtado MD 20 mg at 12/02/242101 cefTRIAXone (ROCEPHIN) 2 g in sodium chloride 0.9 % (NS) 50 mL MELIDA IVPB 2 g intravenous Q24H MD Barney dextrose 50% (D50W) injection 25 g 25 g intravenous Q15 Min PRN Huey Hurtado MD ergocalciferol (DRISDOL) capsule 50,000 Units 50,000 Units oral Q7 Days Timothy Bai MD 50,000 Units at 11/30/24 1459 gabapentin (NEURONTIN) capsule 300 mg 300 mg oral TID Hill Boo MD 300 mg at 12/03/24 0839 glucagon injection 1 mg 1 mg intraMUSCULAR Q15 Min PRN Huey Hurtado MD glucose chew tab 16 g 16 g oral Q15 Min PRN Huey Hurtado MD hydrALAZINE (APRESOLINE) injection 10 mg 10 mg intravenous Q6H PRN Huey Hurtado MD insulin lispro (HUMALOG, ADMELOG) injection 0-18 Units 0-18 Units subcutaneous 4x Daily AC Huey Hurtado MD 3 Units at 12/03/24 0650 lactulose (CHRONULAC) 10 gram/15 mL solution 10 g 10 g oral TID Timothy Bai MD 10 g at 12/03/24 0839 melatonin tablet 3 mg 3 mg oral Every Night PRN Huey Hurtado MD ondansetron (ZOFRAN-ODT) disintegrating tablet 4 mg 4 mg oral Q8H PRN Huey Hurtado MD Or ondansetron (ZOFRAN) injection 4 mg 4 mg intravenous Q8H PRN Huey Hurtado MD pantoprazole (PROTONIX) injection 40 mg 40 mg intravenous BID Timothy Bai MD 40 mg at 12/03/24 0839 prochlorperazine (COMPAZINE) injection 10 mg 10 mg intravenous Q6H PRN Huey Hurtado MD rifAXIMin (XIFAXAN) tablet 550 mg 550 mg oral BID Destiney Llanes APRN 550 mg at 12/03/24 0839 sodium chloride 0.9 % infusion 20 mL/hr intravenous Once Denilson Hodgson, DO sodium chloride flush 10 mL 10 mL intravenous PRN Huey Hurtado MD More meds No current facility-administered medications on file prior to encounter. Current Outpatient Medications on File Prior to Encounter Medication Sig Dispense Refill albuterol 90 mcg/actuation inhaler Inhale 1 puff by mouth every 6 (six) hours as needed for wheezing. ammonium lactate (AMLACTIN) 12 % cream Apply 1 g topically as needed for dry skin. aspirin 81 MG chewable tablet Take 1 tablet (81 mg total) by mouth daily. atorvastatin (LIPITOR) 20 MG tablet Take 1 tablet (20 mg total) by mouth nightly. bisoprolol (ZEBETA) 10 MG tablet Take 1 tablet (10 mg total) by mouth 2 (two) times daily. cholecalciferol (VITAMIN D3) 125 mcg (5,000 unit) tablet Take 2 tablets (10,000 Units total) by mouth daily. clopidogreL (PLAVIX) 75 mg tablet Take 1 tablet (75 mg total) by mouth daily Look-alike/Sound-alike medication. colestipoL (COLESTID) 1 gram tablet Take 2 tablets (2 g total) by mouth daily. dicyclomine (BENTYL) 10 MG capsule Take 1 capsule (10 mg total) by mouth 2 (two) times daily. furosemide (LASIX) 40 MG tablet Take 1 tablet (40 mg total) by mouth 2 (two) times daily. gabapentin (NEURONTIN) 800 MG tablet Take 1 tablet (800 mg total) by mouth 3 (three) times daily. Max Daily Amount: 2,400 mg HYDROcodone-acetaminophen (NORCO) 10-325 mg per tablet Take 1 tablet by mouth every 6 (six) hours as needed for pain. Max Daily Amount: 4 tablets hydrOXYzine pamoate (VISTARIL) 50 MG capsule Take 1 capsule (50 mg total) by mouth every night as needed for itching (sleep) Look-alike/Sound-alike medication. insulin aspart U-100 (NovoLOG) 100 unit/mL (3 mL) inpn Inject under the skin 4 (four) times daily before meals and nightly. lisinopriL (ZESTRIL) 10 MG tablet Take 1 tablet (10 mg total) by mouth 2 (two) times daily. metFORMIN (GLUCOPHAGE) 1000 MG tablet Take 1 tablet (1,000 mg total) by mouth 2 (two) times daily with breakfast and dinner Look-alike/Sound-alike medication. tirzepatide 7.5 mg/0.5 mL pnij Inject 7.5 mg under the skin every 7 days. triamcinolone (KENALOG) 0.1 % topical cream Apply 0.1 Applications topically daily to affected area.. Problem list and diagnosis Patient Active Problem List Diagnosis Anasarca Melena 1. Melena Case request operating room: ESOPHAGOGASTRODUODENOSCOPY (EGD) Case request operating room: ESOPHAGOGASTRODUODENOSCOPY (EGD) Lactate dehydrogenase (LDH), body fluid Lactate dehydrogenase (LDH), body fluid Body fluid cell count with differential Body fluid cell count with differential Body Fluid Culture + Gram Stain Body Fluid Culture + Gram Stain Anaerobic Culture Anaerobic Culture Fungus Culture W/ROSA MARIA Or Nimisha Ink Fungus Culture W/ROSA MARIA Or Nimisha Ink AFB Culture And Stain AFB Culture And Stain [facility] Non-Optometric Assistant Cytology [facility] Non-Optometric Assistant Cytology DIFFERENTIAL, BODY FLUID DIFFERENTIAL, BODY FLUID Body Fluid/CSF - Path Review () Body Fluid/CSF - Path Review () [facility] BONE MARROW SMEAR, ASPIRATION, AND STAIN [facility] BONE MARROW SMEAR, ASPIRATION, AND STAIN CANCELED: Glucose Body Fluid(SENDOUT) CANCELED: Glucose Body Fluid(SENDOUT) CANCELED: Total Protein, Body Fluid(SENDOUT) CANCELED: Total Protein, Body Fluid(SENDOUT) Past Medical History: Past Medical History: Diagnosis Date Cirrhosis, non-alcoholic (HCC) Diabetes mellitus (HCC) Hypertension Past Surgical History: Past Surgical History: Procedure Laterality Date ESOPHAGOGASTRODUODENOSCOPY (EGD),REMOVAL FOREIGN BODY N/A 12/01/2024 Procedure: EGD, WITH FOREIGN BODY REMOVAL; Surgeon: Scott Daley MD; [facility]; Service: Gastroenterology; Laterality: N/A; Allergies: No Known Allergies Social History: Tobacco Use Smoking status: Never Passive exposure: Never Smokeless tobacco: Never Substance Use Topics Alcohol use: Never Drug use: Never Marital Status: Family History: No family history on file. Review of Systems: Constitutional: Negative except as documented in history of present illness. Eye: Negative except as documented in history of present illness. Ear/Nose/Mouth/Throat: Negative except as documented in history of present illness. Respiratory: Negative except as documented in history of present illness. Cardiovascular: Negative except as documented in history of present illness. Gastrointestinal: Negative except as documented in history of present illness. Genitourinary: Negative except as documented in history of present illness. Hematology/Lymphatics: Negative except as documented in history of present illness. Endocrine: Negative except as documented in history of present illness. Immunologic: Negative except as documented in history of present illness. Musculoskeletal: Negative except as documented in history of present illness. Integumentary: Negative except as documented in history of present illness. Neurologic: Negative except as documented in history of present illness. Psychiatric: Negative except as documented in history of present illness. Physical Exam: Blood pressure 108/57, pulse 121, temperature 97.9 ??F (36.6 ??C), temperature source Oral, resp. rate 16, height 1.676 m (5' 6 ), weight 102.3 kg (225 lb 8 oz), SpO2 100%. General: Alert and oriented. Ill-appearing Eye: Pupils are equal, round and reactive to light. HENT: Normocephalic. Neck: Supple, Non-tender, No carotid bruit, No jugular venous distention. Respiratory: Decreased breath sound bilateral, Respirations are non-labored. Cardiovascular: regular rhythm, No murmur Gastrointestinal: Soft, Non-tender, slightly distended, Normal bowel sounds. Musculoskeletal: Normal range of motion. Integumentary: Warm, Dry, [place]. Neurologic: No obvious focal deficit Psychiatric: Cooperative, Appropriate mood & affect. Labs, Imaging, and Other Studies: Echo Results (last 7 days) Procedure Component Value Units Date/Time ECHO COMPLETE (DOPPLER / COLOR) W OR WO CONTRAST [[id number]] Collected: 11/30/24724 Order Status: Completed Updated: 11/30/24 104 Narrative: TRANSTHORACIC ECHOCARDIOGRAPHY REPORT Demographics Patient Name: RIN JONES : 1960 Age: 64 year(s) Corporate ID Number: [id number] Gender Female Container Repairer: Giovanna Rock Height: 67 inches [facility] Referring Physician: HUEY HURTADO Weight: 225 pounds Interpreting JESSICA RAYMOND MD BMI: 35.24 kg/m^2 Physician: Date of Service: 11/30/2024 Blood Pressure: 118/59 mmHg Room Number: 579 Type of Study: TTE procedure: ECHO COMPLETE (DOPPLER / COLOR) W OR WO CONTRAST. Patient Status: Routine IP Study Location: PortableTechnical Quality: Adequate visualization History/Tech Notes: Indication: shortness of breath R06.02 Impression: ######################################## Normal sized left ventricle. Normal left ventricular wall thickness. Visually estimated ejection fraction 55% +/- 5%. Borderline systolic strain pattern. Increased left atrial pressure (Grade II diastolic dysfunction). Sclerotic aortic valve leaflets. Trivial pericardial effusion measuring 0.3cm. posteriorly. ######################################## Measurements Summary: LVEDd: 5.33 cm LVESd: 3.64 cm IVSEd: 0.88 cm AO Root:2.7 cm LVPWd: 0.87 cm Contractility Score Normal Left Ventricular contractility was noted. LV regional wall motion: (0-Not visualized 1-Normal 2-Hypokinesis 3-Akinesis 4-Dyskinesis 5-Aneurysm) Left Ventricle Peak E-wave: 1.31 Peak A-wave: 1.35 m/s E/A ratio: 0.97 m/s Volume [id number] LV length: 8.51 cm ml Volume ccemttat58.96 ml LVOT diameter: 1.79 cm Normal sized left ventricle. Normal left ventricular wall thickness. Visually estimated ejection fraction 55% +/- 5%. Borderline systolic strain pattern. Increased left atrial pressure (Grade II diastolic dysfunction). No left ventricular masses or thrombi. Right Ventricle Diastolic dimension: 3.92 RV systolic pressure: 28.12 mmHg cm Normal sized right ventricle. Normal TAPSE c/w normal right ventricular function Left Atrium LA dimension: 4 cm LA volume:83.13 ml LA/Aorta: 1.48 Abnormal left atrial volume index 39 ml/m^2. Intact atrial septum. No atrial mass or thrombus. Right Atrium Normal sized right atrium. Intact atrial septum. No atrial mass or thrombus. Mitral Valve Deceleration time: 261.56 msec Thickened mitral valve leaflets. Mild (1+) mitral regurgitation. No mitral stenosis. No masses or vegetations seen. Aortic Valve AV VTI: 53.02 Area continuity: 1.13 Peak velocity: 2.38 m/s cm cm^2 Peak gradient: 22.63 LVOT VTI: 23.85 Mean velocity: 1.76 mmHg cm m/s Mean gradient: 13.56 mmHg Sclerotic aortic valve leaflets. Mildly thickend free edges of the aortic valve leaflets. No aortic regurgitation. No aortic stenosis. No masses or vegetations seen. Tricuspid Valve TR velocity: 2.51 m/s TR gradient: 25.93992 mmHg Estimated RAP: 3 mmHg RVSP: 28.12 mmHg Structurally normal tricuspid valve. Trace tricuspid valve regurgitation. No tricuspid stenosis. No masses or vegetations seen. Pulmonic Valve Acceleration time: 110.37 msec PASP: 28.12 mmHg Structurally normal pulmonic valve. Trace pulmonary valve regurgitation. No pulmonic stenosis. No masses or vegetations seen. Great Vessels Aorta Aortic Root: 2.7 cm LVOT Diameter: 1.79 cm Visualized thoracic aorta is normal. Normal aortic root. No evidence of dissection. Normal IVC with appropriate collapse. Pericardium / Pleura Trivial pericardial effusion measuring 0.3cm. posteriorly. Other Ascites noted in subcostal imaging. Sodium Date Value Ref Range Status 12/03/2024 147 (H) 136 - 145 meq/L Final Potassium Date Value Ref Range Status 12/03/2024 4.1 3.4 - 5.1 meq/L Final Chloride Date Value Ref Range Status 12/03/2024 119 (H) 98 - 112 meq/L Final CO2 Date Value Ref Range Status 12/03/2024 20 (L) 22 - 29 meq/L Final BUN Date Value Ref Range Status 12/03/2024 53.7 (H) 9.8 - 20.1 mg/dL Final Creatinine Date Value Ref Range Status 12/03/2024 3.48 (H) 0.57 - 1.11 mg/dL Final eGFR (mL/min/1.73m2) Date Value Ref Range Status 12/03/2024 14 (L) >=60 mL/min/1.73m2 Final Calcium Date Value Ref Range Status 12/03/2024 8.3 (L) 8.4 - 10.2 mg/dL Final WBC Date Value Ref Range Status 12/03/2024 2.8 (L) 4.0 - 10.0 K/??L Final 12/02/2024 3.0 (L) 4.0 - 10.0 K/??L Final 12/01/2024 1.7 (LL) 4.0 - 10.0 K/??L Final RBC Date Value Ref Range Status 12/03/2024 2.68 (L) 3.93 - 5.22 M/??L Final 12/02/2024 2.43 (L) 3.93 - 5.22 M/??L Final 12/01/2024 2.15 (L) 3.93 - 5.22 M/??L Final Hemoglobin Date Value Ref Range Status 12/03/2024 8.2 (L) 11.2 - 15.7 GM/DL Final 12/02/2024 8.9 (L) 11.2 - 15.7 GM/DL Final 12/02/2024 9.1 (L) 11.2 - 15.7 GM/DL Final Hematocrit Date Value Ref Range Status 12/03/2024 26.1 (L) 34.1 - 44.9 % Final 12/02/2024 23.4 (L) 34.1 - 44.9 % Final 12/02/2024 24.2 (L) 34.1 - 44.9 % Final Platelets Date Value Ref Range Status 12/03/2024 55 (L) 140 - 375 K/CU MM Final 12/02/2024 57 (L) 140 - 375 K/CU MM Final 12/01/2024 54 (L) 140 - 375 K/CU MM Final No results found for: TSH , MAGNESIUM .[facility] Lab Results Component Value Date K 4.1 12/03/2024 Lab Results Component Value Date CREATININE 3.48 (H) 12/03/2024 No results found for: TSH No results found for: MAGNESIUM AST Date Value Ref Range Status 12/03/2024 21 11 - 34 U/L Final Comment: AST2 reagent used for testing does not contain P5P supplementation and therefore may miss AST elevations in patients with B6 deficiency. This population may be as high as 10% in the [place], with risk factors including malabsorption, drug interactions, and alcoholic hepatitis. ALT Date Value Ref Range Status 12/03/2024 7 <=34 U/L Final Comment: ALT2 reagent used for testing does not contain P5P supplementation and therefore may miss ALT elevations in patients with B6 deficiency. This population may be as high as 10% in the [place], with risk factors including malabsorption, drug interactions, and alcoholic hepatitis. Echo Results (last 7 days) Procedure Component Value Units Date/Time ECHO COMPLETE (DOPPLER / COLOR) W OR WO CONTRAST [[id number]] Collected: 11/30/24724 Order Status: Completed Updated: 11/30/241045 Narrative: TRANSTHORACIC ECHOCARDIOGRAPHY REPORT Demographics Patient Name: RIN JONES : 1960 Age: 64 year(s) Corporate ID Number: [id number] Gender Female Container Repairer: Giovanna Rock Height: 67 inches [facility] Referring Physician: HUEY HURTADO Weight: 225 pounds Interpreting JESSICA RAYMOND MD BMI: 35.24 kg/m^2 Physician: Date of Service: 11/30/2024 Blood Pressure: 118/59 mmHg Room Number: 579 Type of Study: TTE procedure: ECHO COMPLETE (DOPPLER / COLOR) W OR WO CONTRAST. Patient Status: Routine IP Study Location: PortableTechnical Quality: Adequate visualization History/Tech Notes: Indication: shortness of breath R06.02 Impression: ######################################## Normal sized left ventricle. Normal left ventricular wall thickness. Visually estimated ejection fraction 55% +/- 5%. Borderline systolic strain pattern. Increased left atrial pressure (Grade II diastolic dysfunction). Sclerotic aortic valve leaflets. Trivial pericardial effusion measuring 0.3cm. posteriorly. ######################################## Measurements Summary: LVEDd: 5.33 cm LVESd: 3.64 cm IVSEd: 0.88 cm AO Root:2.7 cm LVPWd: 0.87 cm Contractility Score Normal Left Ventricular contractility was noted. LV regional wall motion: (0-Not visualized 1-Normal 2-Hypokinesis 3-Akinesis 4-Dyskinesis 5-Aneurysm) Left Ventricle Peak E-wave: 1.31 Peak A-wave: 1.35 m/s E/A ratio: 0.97 m/s Volume [id number] LV length: 8.51 cm ml Volume zccputgx01.96 ml LVOT diameter: 1.79 cm Normal sized left ventricle. Normal left ventricular wall thickness. Visually estimated ejection fraction 55% +/- 5%. Borderline systolic strain pattern. Increased left atrial pressure (Grade II diastolic dysfunction). No left ventricular masses or thrombi. Right Ventricle Diastolic dimension: 3.92 RV systolic pressure: 28.12 mmHg cm Normal sized right ventricle. Normal TAPSE c/w normal right ventricular function Left Atrium LA dimension: 4 cm LA volume:83.13 ml LA/Aorta: 1.48 Abnormal left atrial volume index 39 ml/m^2. Intact atrial septum. No atrial mass or thrombus. Right Atrium Normal sized right atrium. Intact atrial septum. No atrial mass or thrombus. Mitral Valve Deceleration time: 261.56 msec Thickened mitral valve leaflets. Mild (1+) mitral regurgitation. No mitral stenosis. No masses or vegetations seen. Aortic Valve AV VTI: 53.02 Area continuity: 1.13 Peak velocity: 2.38 m/s cm cm^2 Peak gradient: 22.63 LVOT VTI: 23.85 Mean velocity: 1.76 mmHg cm m/s Mean gradient: 13.56 mmHg Sclerotic aortic valve leaflets. Mildly thickend free edges of the aortic valve leaflets. No aortic regurgitation. No aortic stenosis. No masses or vegetations seen. Tricuspid Valve TR velocity: 2.51 m/s TR gradient: 25.03737 mmHg Estimated RAP: 3 mmHg RVSP: 28.12 mmHg Structurally normal tricuspid valve. Trace tricuspid valve regurgitation. No tricuspid stenosis. No masses or vegetations seen. Pulmonic Valve Acceleration time: 110.37 msec PASP: 28.12 mmHg Structurally normal pulmonic valve. Trace pulmonary valve regurgitation. No pulmonic stenosis. No masses or vegetations seen. Great Vessels Aorta Aortic Root: 2.7 cm LVOT Diameter: 1.79 cm Visualized thoracic aorta is normal. Normal aortic root. No evidence of dissection. Normal IVC with appropriate collapse. Pericardium / Pleura Trivial pericardial effusion measuring 0.3cm. posteriorly. Other Ascites noted in subcostal imaging. Assessment and Plan: *Paroxysmal Atrial Fib [id number] of 2 also have some wide-complex tachycardia aberrancy versus nonsustained VT longest about 10 beats echocardiogram showed normal EF in November 2024 patient seems asymptomatic *Non-alcoholic Liver Cirrhosis decompensated with ascites status post paracentesis 6 L removed on 11/30/2024 also underwent an EGD that shows duodenal ulcer but no evidence of active bleeding *CAD *Diabetes mellitus *HTN *HLD *pancytopenia *GERMÁN Plan: 12/03/2024 Labs and telemetry reviewed. Keep electrolytes within normal limit. Patient received a bolus of amiodarone that converted her. If further arrhythmia can always do bolus drip of amiodarone however concern is due to liver function. Further recommendations pending testing results, clinical course, and response to therapy. * Laura Batista MD - 11/30/2024 5:46 PM EDTAssociated Order(s): FS_MODEL_IP IP CONSULT TO HEMATOLOGY/ONCOLOGY Hematology Oncology Consult Reason for the consult: Pancytopenia. History of Present Illness: Mary Coronel is a very pleasant 64 y.o. female with medical history significant for liver cirrhosis, diabetes, hypertension and chronic kidney disease. Patient was admitted for liver decompensationand acute renal failure. Patient has coronary artery disease and she is on antiplatelet agent with c lopidogrel and aspirin. Patient was found to have pancytopenia. She reported dark stool. She denied any history of blood transfusion or blood disorder in the past although she was told couple times in the last 2 to 3 months that her blood count is low. She is notaware of any enlarged lymph node or abnormal mass. Past Medical History: Diagnosis Date Cirrhosis, non-alcoholic (HCC) Diabetes mellitus (HCC) Hypertension No past surgical history on file. Social History Socioeconomic History Marital status: Spouse name: Not on file Number of children: Not on file Years of education: Not on file Highest education level: Not on file Occupational History Not on file Tobacco Use Smoking status: Never Passive exposure: Never Smokeless tobacco: Never Substance and Sexual Activity Alcohol use: Never Drug use: Never Sexual activity: Not on file Other Topics Concern Not on file Social History Narrative Not on file Social Drivers of Health Financial Resource Strain: Low Risk (11/30/2024) Financial Resource Strain Struggle to pay for basics: Not hard at all Food Insecurity: No Food Insecurity (11/30/2024) Food Insecurity Food run out past 12 months: Never true Food did not last past 12 months: Never true Transportation Needs: Unmet Transportation Needs (11/30/2024) Transportation Needs Transportation unreliable past 12 months: Yes Physical Activity: Inactive (11/30/2024) Physical Activity Minutes of exercise per week: 0 Stress: No Stress Concern Present (11/30/2024) Stress Feeling stress past 2 weeks: A little bit Social Connections: Unknown (11/30/2024) Family and Community Support Help with Day to Day Activities: I don't need any help Feeling Lonely or Isolated: 0 Intimate Partner Violence: Unknown (05/06/2023) Received from [facility] Abuse Screen Unsafe at Home or Work/School: Not on file Feels Threatened by Someone?: Not on file Does Anyone Keep You from Contacting Others or Doint Things Outside the Home?: Not on file Physical Sign of Abuse Present: Not on file Housing Stability: Low Risk (11/30/2024) Housing Stability Living situation today: I have a steady place to live Living situation problems: None of the above has no past surgical history on file. family history is not on file. Allergies: Patient has no known allergies. Medications: Current Outpatient Medications Medication Instructions albuterol 90 mcg/actuation inhaler 1 puff, inhalation, Every 6 hours PRN ammonium lactate (AMLACTIN) 1 g, topical, As needed aspirin 81 mg, oral, Daily atorvastatin (LIPITOR) 20 mg, oral, Every Night bisoprolol (ZEBETA) 10 mg, oral, 2 times daily cholecalciferol (VITAMIN D3) 10,000 Units, oral, Daily clopidogreL (PLAVIX) 75 mg, oral, Daily, Look-alike/Sound-alike medication colestipoL (COLESTID) 2 g, oral, Daily dicyclomine (BENTYL) 10 mg, oral, 2 times daily furosemide (LASIX) 40 mg, oral, 2 times daily gabapentin (NEURONTIN) 800 mg, oral, 3 times daily HYDROcodone-acetaminophen (NORCO) 10-325 mg per tablet 1 tablet, oral, Every 6 hours PRN hydrOXYzine pamoate (VISTARIL) 50 mg, oral, Every Night PRN, Look-alike/Sound-alike medication insulin aspart U-100 (NovoLOG) 100 unit/mL (3 mL) inpn subcutaneous, 4 times daily (before meals and nightly) lisinopriL (ZESTRIL) 10 mg, oral, 2 times daily metFORMIN (GLUCOPHAGE) 1,000 mg, oral, 2 times daily with breakfast and dinner, Look-alike/Sound-alike medication tirzepatide 7.5 mg, subcutaneous, Every 7 days triamcinolone (KENALOG) 0.1 % topical cream 0.1 Applications, topical, Daily, to affected area. Review of Symptoms: Review of Systems Constitutional: Positive for malaise/fatigue. HENT: Negative. Eyes: Negative. Respiratory: Positive for shortness of breath. Cardiovascular: Positive for leg swelling. Gastrointestinal: Positive for melena and nausea. Genitourinary: Negative. Musculoskeletal: Negative. Skin: Negative. Neurological: Positive for dizziness. Endo/Heme/Allergies: Negative. Psychiatric/Behavioral: Negative. Vitals Vitals: 11/30/24 0515 11/30/24 0802 11/30/24 1202 11/30/24 1206 BP: 118/59 (!) 141/69 124/59 Pulse: 95 100 98 Resp: Temp: 97.7 ??F (36.5 ??C) 97.7 ??F (36.5 ??C) 98.1 ??F (36.7 ??C) TempSrc: SpO2: 97% 98% 99% 95% Weight: Height: Physical Exam Vitals reviewed. Constitutional: Appearance: She is ill-appearing. HENT: Head: Normocephalic. Mouth/Throat: Mouth: Mucous membranes are moist. Pharynx: Oropharynx is clear. Eyes: Pupils: Pupils are equal, round, and reactive to light. Cardiovascular: Rate and Rhythm: Normal rate and regular rhythm. Pulmonary: Breath sounds: Normal breath sounds. Abdominal: General: Abdomen is flat. There is distension. Palpations: Abdomen is soft. Musculoskeletal: Cervical back: Normal range of motion and neck supple. Lymphadenopathy: Cervical: No cervical adenopathy. Right cervical: No superficial or posterior cervical adenopathy. Left cervical: No superficial or posterior cervical adenopathy. Upper Body: Right upper body: No supraclavicular or axillary adenopathy. Left upper body: No supraclavicular or axillary adenopathy. Lower Body: No right inguinal adenopathy. No left inguinal adenopathy. Skin: Coloration: Skin is not jaundiced. Neurological: Mental Status: She is alert. Relevant Results: Radiology Results (last 7 days) Procedure Component Value Units Date/Time Ultrasound renal limited [[id number]] Collected: 11/30/241645 Order Status: Completed Updated: 11/30/241648 Narrative: RENAL ULTRASOUND HISTORY: Renal failure PROCEDURE: Sonographic images of the kidneys were obtained in both longitudinal and transverse orientations. FINDINGS: Limited images of the liver parenchyma demonstrate normal echogenicity. The right kidney measures 9.5 cm in length. It has normal echogenicity. There is no hydronephrosis. The left kidney measures 11.0 cm in length. It has normal echogenicity. There is no hydronephrosis. Impression: Normal renal ultrasound. Images reviewed, interpreted, and dictated by Ronnell Tom MD Ultrasound liver [[id number]] Collected: 11/30/241642 Order Status: Completed Updated: 11/30/241654 Narrative: CLINICAL INDICATION: Abdominal pain. Assess HCC TECHNIQUE: Multiplanar grayscale and color ultrasound images of the right upper quadrant of the abdomen were obtained. COMPARISON: Ultrasound 11/30/2024. FINDINGS: Quality: Adequate. Visualized Pancreas: Partial imaging of the pancreas is unremarkable. Liver: The liver parenchyma is coarse and heterogenous consistent with parenchymal disease. This limits the visualization of focal hepatic lesions however there are no sonographically detectable focal liver lesions. Nodular contour of the liver, suggestive of cirrhosis. Liver is small in size, measuring 11.4 cm. Portal vein is patent with appropriate flow and directionality. Mildly dilated portal vein, measuring 12 mm in diameter. Hepatic veins are patent with appropriate flow and directionality. Gallbladder: Prior cholecystectomy. Bile Ducts: No intrahepatic biliary ductal dilatation. No extrahepatic biliary ductal dilatation. The common bile duct is normal in size and measuring 4.2 mm in diameter. Fluid survey: Small amount of perihepatic ascites. Impression: Cirrhosis. No focal liver lesions identified. Small volume perihepatic ascites. CRITICAL RESULT: No. COMMUNICATION: Per this written report. Images personally reviewed, interpreted and dictated by SABINE Yang. US paracentesis [[id number]] Collected: 11/30/24 1637 Order Status: Completed Updated: 11/30/24 1655 Narrative: ULTRASOUND-GUIDED PARACENTESIS HISTORY: Ascites ATTENDING PHYSICIAN: Dr. Haseeb Gil PHYSICIAN ELDER ASSISTANT: Gabriel Velasco PA-C FINDINGS: After informed consent was obtained and timeout procedure performed, fluid was localized in the right lower quadrant under ultrasound guidance and marked on the skin appropriately. The patient was then prepped and draped in the usual sterile fashion and the skin was anesthetized with 1% Lidocaine. An ultrasound guided paracentesis was then performed using a Turkel needle. Approximately 6 liters of clear yellow fluid was removed. 80 mL was sent to lab. The patient tolerated the procedure well and there were no immediate complications. Impression: Ultrasound guided right lower quadrant paracentesis as discussed above. 6 liters of clear yellow fluid was removed. Images reviewed, interpreted, and dictated by Dr. Haseeb Gil. Transcribed by Gabriel Velasco PA-C. XR chest AP portable [[id number]] Collected: 11/30/24 1215 Order Status: Completed Updated: 11/30/24 1222 Narrative: PORTABLE CHEST 11/30/2024 11:29 AM HISTORY: Hypertension, decompensated cirrhosis. COMPARISON: None. FINDINGS: The heart is proper size. The mediastinum is unremarkable. Prominent perihilar interstitial changes are noted, likely secondary to vascular congestion. There is no pneumothorax. The osseous structures are unremarkable. Impression: Prominent interstitial changes are likely secondary to vascular congestion. Continued follow-up is recommended. Images reviewed, interpreted, and dictated by Dr. Jose C Calhoun. Transcribed by Marielos Sotelo PA-C. US renal complete [[id number]] Order Status: Canceled Admission on 11/30/2024 Component Date Value Ref Range Status Sodium 11/30/2024 144 136 - 145 meq/L Final Potassium 11/30/2024 4.6 3.4 - 5.1 meq/L Final Chloride 11/30/2024 115 (H) 98 - 112 meq/L Final CO2 11/30/2024 20 (L) 22 - 29 meq/L Final Calcium 11/30/2024 8.3 (L) 8.4 - 10.2 mg/dL Final Glucose 11/30/2024 86 82 - 115 mg/dL Final BUN 11/30/2024 74.2 (H) 9.8 - 20.1 mg/dL Final Creatinine 11/30/2024 4.15 (H) 0.57 - 1.11 mg/dL Final BUN/Creatinine 11/30/2024 18 8 - 20 Final eGFR (mL/min/1.73m2) 11/30/2024 12 (L) >=60 mL/min/1.73m2 Final Albumin 11/30/2024 2.2 (L) 3.5 - 5.0 g/dL Final Alkaline Phosphatase 11/30/2024 83 40 - 150 U/L Final ALT 11/30/2024 17 <=34 U/L Final ALT2 reagent used for testing does not contain P5P supplementation and therefore may miss ALT elevations in patients with B6 deficiency. This population may be as high as 10% in the [place], with risk factors including malabsorption, drug interactions, and alcoholic hepatitis. AST 11/30/2024 43 (H) 11 - 34 U/L Final AST2 reagent used for testing does not contain P5P supplementation and therefore may miss AST elevations in patients with B6 deficiency. This population may be as high as 10% in the [place], with risk factors including malabsorption, drug interactions, and alcoholic hepatitis. Total Bilirubin 11/30/2024 0.8 0.2 - 1.2 mg/dL Final Protein, Total 11/30/2024 6.5 6.4 - 8.3 g/dL Final Globulin 11/30/2024 4.3 (H) 2.5 - 4.1 g/dL Final Anion Gap 11/30/2024 14 (H) 4 - 12 Final A/G Ratio 11/30/2024 0.5 (L) 0.7 - 1.9 Final Osmolality Calc 11/30/2024 308.1 mOsm/kg Final Protime 11/30/2024 12.9 (H) 9.0 - 12.0 seconds Final INR 11/30/2024 1.17 (H) 0.80 - 1.10 Final Recommended therapeutic ranges using International Normalized Ratio (INR) are: INR RANGE 2.0 - 3.0 Routine oral anticoagulant therapy 2.5 - 3.5 Oral anticoagulant therapy for patients with thromboembolic events on standard doses of Coumadin and those with mechanical heart valves. aPTT 11/30/2024 27.7 22.0 - 32.0 seconds Final Lactic Acid Level (mmol/L) 11/30/2024 0.9 0.5 - 2.2 mmol/L Final Magnesium 11/30/2024 2.7 (H) 1.6 - 2.6 mg/dL Final Ammonia 11/30/2024 59 18 - 72 ??mol/L Final WBC 11/30/2024 1.9 (LL) 4.0 - 10.0 K/??L Final RBC 11/30/2024 2.63 (L) 3.93 - 5.22 M/??L Final Hemoglobin 11/30/2024 8.2 (L) 11.2 - 15.7 GM/DL Final Hematocrit 11/30/2024 26.3 (L) 34.1 - 44.9 % Final MCV 11/30/2024 100 (H) 79 - 95 fL Final MCH 11/30/2024 31.2 25.6 - 32.2 pg Final MCHC 11/30/2024 31.2 (L) 32.2 - 35.5 GM/DL Final RDW 11/30/2024 16.2 (H) 11.7 - 14.4 % Final Platelets 11/30/2024 64 (L) 140 - 375 K/CU MM Final MPV 11/30/2024 10.4 9.4 - 12.3 fL Final Procalcitonin 11/30/2024 0.26 See Comment ng/mL Final Sepsis comment <0.5 Antibiotics Discouraged >0.5 Antibiotics Encouraged *Assessing Sepsis Risk and Severity* >2.0 ng/mL High Risk for Progression to severe sepsis and/or septic shock 0.5-2.0 ng/mL Sepsis should be considered <0.5 ng/mL Low Risk for Progression to Severe and/or septic shock Lower Respiratory Tract Infection (LRT) <0.25 Antibiotics Discouraged >0.25 Antibiotics Encouraged *Procalcitonin results should be interpreted carefully in settings that are known to falsely elevate results such as renal failure, trauma, localized infections and puri. Hemoglobin A1C 11/30/2024 4.9 4.0 - 5.6 % Final Hemoglobin A1C levels are related to mean glucose during the preceding 2-3 months. Less than 7% demonstrates glycemic control in diabetic patients. Hemoglobin AlC % Suggested Diagnosis > or = 6.5 Diabetic 5.7 - 6.4 Prediabetic <5.7 Non-diabetic eAVG Glucose 11/30/2024 93.93 70 - 126 mg/dL Final POC-GLUCOSE 11/30/2024 96 70 - 110 mg/dL Final In the event of poor peripheral blood flow, venous or arterial blood should be used due to the potential of erroneous results. Protocols Followed Laboratory Scientist 11/30/2024 [id number] Final Iron 11/30/2024 64 50 - 170 ug/dL Final Vitamin D 25-Hydroxy 11/30/2024 22.0 (L) 30 - 80 ng/mL Final Vitamin B12 11/30/2024 678 213 - 816 pg/mL Final Color, UA 11/30/2024 Light Yellow Final Clarity, UA 11/30/2024 Turbid (A) Clear Final Specific [place], UA 11/30/2024 1.011 1.005 - 1.030 Final pH, UA 11/30/2024 5.0 (L) 6.0 - 8.0 Final Leukocytes, UA 11/30/2024 500 Félix/uL (A) Negative Final Nitrite, UA 11/30/2024 Negative Negative Final Protein, UA 11/30/2024 Negative Negative Final Glucose, UA 11/30/2024 Normal Normal Final Ketones, UA 11/30/2024 Negative Negative Final Bilirubin, UA 11/30/2024 Negative Negative Final Blood, UA 11/30/2024 Negative Negative Final Urobilinogen, UA 11/30/2024 Normal Normal Final Specimen Source 11/30/2024 Urine, Clean Catch Final POC-GLUCOSE 11/30/2024 102 70 - 110 mg/dL Final In the event of poor peripheral blood flow, venous or arterial blood should be used due to the potential of erroneous results. Notified Nurse RBV Laboratory Scientist 11/30/2024 [id number] Final WBC, UA 11/30/2024 21-50 (A) None Seen /HPF Final RBC, UA 11/30/2024 0-2 (A) None Seen /HPF Final Bacteria, UA 11/30/2024 1+ (A) None Seen, Trace Final Mucus 11/30/2024 1+ (A) None Seen Final SQUAMOUS EPITHELIAL 11/30/2024 3-5 (A) None Seen /HPF Final HYALINE CASTS 11/30/2024 21-50 (A) None Seen /LPF Final Sodium Urine 11/30/2024 83 See Comment meq/L Final Reference Range not established Urea Nitrogen, Ur 11/30/2024 305 mg/dL Final Reference Range not established Creatinine, Ur 11/30/2024 62.00 47.00 - 110.00 mg/dL Final Protein Creatinine Ratio 11/30/2024 0.19 <=0.20 Final Protein, Urine 11/30/2024 12 1 - 14 mg/dL Final Uric Acid 11/30/2024 11.2 (H) 2.5 - 6.2 mg/dL Final Total CK 11/30/2024 356 (H) 29 - 168 U/L Final LDH 11/30/2024 261 (H) 125 - 220 U/L Final Assessment: This is a very pleasant 64-year-old female with a medical history significant for liver cirrhosis, type 2 diabetes, hypertension, hyperlipidemia, coronary artery disease and chronic kidney disease. Patient was admitted for worsening pancytopenia and hepatorenal syndrome and liver decompensation. She denied any history of blood disorder and never received blood transfusion. White blood count todaywas 1900 with hemoglobin of 8.2 g/dL, MCV 100, platelet count 64,000. Differential was not done. PTand PTT were about normal. Creatinine was 4.15. LDH was mildly elevated with normal vitamin B12 serum iron was done which was normal. This pancytopenia is most likely due to liver cirrhosis and hypersplenism. Although underlying bonemarrow pathology is possible. Patient is going for an EGD tomorrow morning. Plan: I recommend to consider blood and platelet transfusion as needed for now. I will send for ferritin,total iron binding capacity, iron saturation and folic acid. I explained to the patient that we might consider bone marrow biopsy and aspirate. Will continue to follow-up. Thank you very much for allow me to participate in taking care of this pleasant patient. Signed: Electronically signed by Laura Batista MD 11/30/2024 5:46 PM EDT * Hill Boo MD - 11/30/2024 10:04 AM EDT Consults History of Present Illness: Mary Coronel is a 64 y.o. female with past medical history of NAFLD October 2024, hypertension, hyperlipidemia, diabetes, CKD, CAD, arthritis presented to OSH with swollen abdomen, abdominal discomfort and bilateral lower extremity pitting edema. She was transferred to our facility for concern of hepatorenal syndrome. She states she has gained 16 pounds over past week and has suffered intermittent altered mental status of the last few days. She is on diuretics at home and recently increased dose by herself for swelling and decrease in UOP. She is on lisinopril and metformin at home. She has been taking ibuprofen for the last 1 months after her dental surgery. No family hx of kidney disease or autoimmune disease. Denies fever, chills, rash, hematuria. No hx of kidney stones. Nephrology service has been consulted for GERMÁN management. Past Medical History: She has a past medical history of Cirrhosis, non-alcoholic (HCC), Diabetes mellitus (HCC), and Hypertension. Past Surgical History: She has no past surgical history on file. Social History: She reports that she has never smoked. She has never been exposed to tobacco smoke. She has never used smokeless tobacco. She reports that she does not drink alcohol and does not use drugs. Family History: Her family history is not on file. Allergies: Patient has no known allergies. Medications: Medications Prior to Admission Medication Sig Dispense Refill Last Dose/Taking albuterol 90 mcg/actuation inhaler Inhale 1 puff by mouth every 6 (six) hours as needed for wheezing. ammonium lactate (AMLACTIN) 12 % cream Apply 1 g topically as needed for dry skin. aspirin 81 MG chewable tablet Take 1 tablet (81 mg total) by mouth daily. atorvastatin (LIPITOR) 20 MG tablet Take 1 tablet (20 mg total) by mouth nightly. bisoprolol (ZEBETA) 10 MG tablet Take 1 tablet (10 mg total) by mouth daily. cholecalciferol (VITAMIN D3) 125 mcg (5,000 unit) tablet Take 2 tablets (10,000 Units total) by mouth daily. clopidogreL (PLAVIX) 75 mg tablet Take 1 tablet (75 mg total) by mouth daily Look-alike/Sound-alike medication. colestipoL (COLESTID) 5 gram granules Take 1 g by mouth daily. furosemide (LASIX) 40 MG tablet Take 1 tablet (40 mg total) by mouth 2 (two) times daily. gabapentin (NEURONTIN) 800 MG tablet Take 1 tablet (800 mg total) by mouth 3 (three) times daily. Max Daily Amount: 2,400 mg HYDROcodone-acetaminophen (NORCO) 10-325 mg per tablet Take 1 tablet by mouth every 6 (six) hours as needed for pain. Max Daily Amount: 4 tablets hydrOXYzine pamoate (VISTARIL) 50 MG capsule Take 1 capsule (50 mg total) by mouth every night as needed for itching (sleep) Look-alike/Sound-alike medication. insulin aspart U-100 (NovoLOG) 100 unit/mL (3 mL) inpn Inject under the skin 4 (four) times daily before meals and nightly. lisinopriL (ZESTRIL) 10 MG tablet Take 1 tablet (10 mg total) by mouth daily. metFORMIN (GLUCOPHAGE) 1000 MG tablet Take 1 tablet (1,000 mg total) by mouth 2 (two) times daily with breakfast and dinner Look-alike/Sound-alike medication. tirzepatide 7.5 mg/0.5 mL pnij Inject 7.5 mg under the skin every 7 days. triamcinolone (KENALOG) 0.1 % topical cream Apply 0.1 Applications topically daily to affected area.. vortioxetine (Trintellix) 20 mg tablet Take 1 tablet (20 mg total) by mouth daily. Review of Systems Review of 14 system was done and found to be negative except as noted above in HPI Vitals: Blood pressure 118/59, pulse 95, temperature 97.7 ??F (36.5 ??C), resp. rate 16, height 1.651 m (5'5 ), weight 102.1 kg (225 lb), SpO2 97%. Physical Exam Gen: Alert, NAD HEENT: NC, AT,EOMI, PERRLA Neck: Supple, no JVD Lungs: CTA. Non labored, symetrical chest expansion CVS: SI/S2 audible. RRR, No M/G noted Abd: soft, NT, Distended, BS + Ext: +++Pedal edema , no cyanosis,PPP WALLPAPERER HELPER: Alert,Oriented. Cranial nerves intact, No focal deficit noted grossly. Psy: Cooperative,appropriate mood and affect Skin: Warm dry and pink Relevant Results: Results for orders placed or performed during the hospital encounter of 11/30/24 (from the past 24 hours) Comprehensive Metabolic Panel Status: Abnormal Collection Time: 11/30/24 3:40 AM Result Value Ref Range Sodium 144 136 - 145 meq/L Potassium 4.6 3.4 - 5.1 meq/L Chloride 115 (H) 98 - 112 meq/L CO2 20 (L) 22 - 29 meq/L Calcium 8.3 (L) 8.4 - 10.2 mg/dL Glucose 86 82 - 115 mg/dL BUN 74.2 (H) 9.8 - 20.1 mg/dL Creatinine 4.15 (H) 0.57 - 1.11 mg/dL BUN/Creatinine 18 8 - 20 eGFR (mL/min/1.73m2) 12 (L) >=60 mL/min/1.73m2 Albumin 2.2 (L) 3.5 - 5.0 g/dL Alkaline Phosphatase 83 40 - 150 U/L ALT 17 <=34 U/L AST 43 (H) 11 - 34 U/L Total Bilirubin 0.8 0.2 - 1.2 mg/dL Protein, Total 6.5 6.4 - 8.3 g/dL Globulin 4.3 (H) 2.5 - 4.1 g/dL Anion Gap 14 (H) 4 - 12 A/G Ratio 0.5 (L) 0.7 - 1.9 Osmolality Calc 308.1 mOsm/kg Prothrombin time/INR Status: Abnormal Collection Time: 11/30/24 3:40 AM Result Value Ref Range Protime 12.9 (H) 9.0 - 12.0 seconds INR 1.17 (H) 0.80 - 1.10 aPTT Status: Normal Collection Time: 11/30/24 3:40 AM Result Value Ref Range aPTT 27.7 22.0 - 32.0 seconds Lactic Acid with reflex Status: Normal Collection Time: 11/30/24 3:40 AM Result Value Ref Range Lactic Acid Level (mmol/L) 0.9 0.5 - 2.2 mmol/L Magnesium Status: Abnormal Collection Time: 11/30/24 3:40 AM Result Value Ref Range Magnesium 2.7 (H) 1.6 - 2.6 mg/dL Ammonia Status: Normal Collection Time: 11/30/24 3:40 AM Result Value Ref Range Ammonia 59 18 - 72 ??mol/L CBC - Hemogram (-BKR) Status: Abnormal Collection Time: 11/30/24 3:40 AM Result Value Ref Range WBC 1.9 (LL) 4.0 - 10.0 K/??L RBC 2.63 (L) 3.93 - 5.22 M/??L Hemoglobin 8.2 (L) 11.2 - 15.7 GM/DL Hematocrit 26.3 (L) 34.1 - 44.9 % MCV 100 (H) 79 - 95 fL MCH 31.2 25.6 - 32.2 pg MCHC 31.2 (L) 32.2 - 35.5 GM/DL RDW 16.2 (H) 11.7 - 14.4 % Platelets 64 (L) 140 - 375 K/CU MM MPV 10.4 9.4 - 12.3 fL Procalcitonin Status: Normal Collection Time: 11/30/24 3:40 AM Result Value Ref Range Procalcitonin 0.26 See Comment ng/mL Iron, serum Status: Normal Collection Time: 11/30/24 3:40 AM Result Value Ref Range Iron 64 50 - 170 ug/dL Vitamin B12 Status: Normal Collection Time: 11/30/24 3:40 AM Result Value Ref Range Vitamin B12 678 213 - 816 pg/mL Glucose, Nova Meter Status: None Collection Time: 11/30/24 5:13 AM Result Value Ref Range POC-GLUCOSE 96 70 - 110 mg/dL Laboratory Scientist [id number] Hemoglobin A1c Status: Normal Collection Time: 11/30/24 8:20 AM Result Value Ref Range Hemoglobin A1C 4.9 4.0 - 5.6 % eAVG Glucose 93.93 70 - 126 mg/dL Vitamin D, 25-Hydroxy Status: Abnormal Collection Time: 11/30/24 8:20 AM Result Value Ref Range Vitamin D 25-Hydroxy 22.0 (L) 30 - 80 ng/mL Recent Labs Lab(s) Units 11/30/24 0513 11/30/24 0340 NA meq/L -- 144 K meq/L -- 4.6 CL meq/L -- 115* CO2 meq/L -- 20* BUN mg/dL -- 74.2* CREATININE mg/dL -- 4.15* ALBUMIN g/dL -- 2.2* GLUCOSE mg/dL 96 86 CALCIUM mg/dL -- 8.3* WBC K/??L -- 1.9* PLT K/CU MM -- 64* HGB GM/DL -- 8.2* No intake or output data in the 24 hours ending 11/30/24 1013 Assessment & Plan Principal Problem: Anasarca 1- Anasarca - liver disease and low albumin level vs nephrotic syndrome plus NSAID for one month 2- GERMÁN on CKD - Unknown baseline - on Lisinopril at home. Third spacing and recently increased doseof diuretics. Pre-renal azotemia - On lisinopril and NSAID and recently increased dose of diureticswith low albumin level vs HRS 3- Hypoalbuminemia 4- Pancytopenia 5- hx of DM 6- HTN 7- NAFLD 8- Ascites Plan: - Albumin infusion - Monitor I/O - Avoid nephrotoxic agents - no NSAID - Continue to hold Lisinopril and metformin for GERMÁN - Renal diet - Adjust meds per renal function - No emergent need of PHARMACOMETRICIAN - Monitor H/H and transfuse for Hgb less than 7.0 - urine lytes - Renal ultrasound Discussed with Patient. Thank you very much for the consult, Will follow along. Electronically signed by Hill Boo MD 11/30/2024 at 10:04 AM * Destiney Llanes APRN - 11/30/2024 8:55 AM EDTAssociated Order(s): Inpatient Consult to Gastroenterology Inpatient Consult to Gastroenterology Consult performed by: Destiney Llanes APRN Consult ordered by: Huey Hurtado MD History of Present Illness: Mary Coronel is a 64 y.o. female we were asked to see for DM, HLD, HTN, and early cirrhosis ([facility]by [facility] in 2021). Presents to OSH for concerns of increased abdominal distention and increased swelling in her lower extremities. This has been ongoing for 1 month. She has also notedintermittent confusion as well as dark, tarry stools over the last two weeks. She has had an EGD inthe past, but cannot remember results. This was performed at [facility] several year ago. She takes Plavix for her CAD s/p stents 4-5 years ago. She also takes ASA. She has not seen a GI provider since 2021. She has an appt with Dr. Law Cote in [place] on December 07. No recent abdominal imaging. +pancytopenia. Cr 4. Nephrology and oncology consulted. She denies alcohol abuse use. Past Medical History She has a past medical history of Cirrhosis, non-alcoholic (HCC), Diabetes mellitus (HCC), and Hypertension. Past Surgical History She has no past surgical history on file. Family History: Denies family history of GI disease or cancers Social History: Social History Socioeconomic History Marital status: Tobacco Use Smoking status: Never Passive exposure: Never Smokeless tobacco: Never Substance and Sexual Activity Alcohol use: Never Drug use: Never Social Drivers of Health Financial Resource Strain: Low Risk (11/30/2024) Financial Resource Strain Struggle to pay for basics: Not hard at all Food Insecurity: No Food Insecurity (11/30/2024) Food Insecurity Food run out past 12 months: Never true Food did not last past 12 months: Never true Transportation Needs: Unmet Transportation Needs (11/30/2024) Transportation Needs Transportation unreliable past 12 months: Yes Physical Activity: Inactive (11/30/2024) Physical Activity Minutes of exercise per week: 0 Stress: No Stress Concern Present (11/30/2024) Stress Feeling stress past 2 weeks: A little bit Social Connections: Unknown (11/30/2024) Family and Community Support Help with Day to Day Activities: I don't need any help Feeling Lonely or Isolated: 0 Received from [facility] Abuse Screen Housing Stability: Low Risk (11/30/2024) Housing Stability Living situation today: I have a steady place to live Living situation problems: None of the above Allergies: Patient has no known allergies. Inpatient Medications: Current Facility-Administered Medications: acetaminophen (TYLENOL) tablet 500 mg, 500 mg, oral, Q4H PRN, Huey Hurtado MD albumin human 25 % IV 25 g, 25 g, intravenous, Q6H NAS, Huey Hurtado MD, 25 g at 11/30/24 0531 albuterol 2.5 mg /3 mL (0.083 %) nebulizer solution 2.5 mg, 2.5 mg, nebulization, Q6H PRN, Albert Garcia MD ammonium lactate (LAC-HYDRIN) lotion 12%, , topical, PRN, Huey Hurtado MD atorvastatin (LIPITOR) tablet 20 mg, 20 mg, oral, Every Night, Huey Hurtado MD cefTRIAXone (ROCEPHIN) 2 g in sodium chloride 0.9 % (NS) 50 mL MELIDA IVPB, 2 g, intravenous, Q24H, Huey Hurtado MD dextrose 50% (D50W) injection 25 g, 25 g, intravenous, Q15 Min PRN, Huey Hurtado MD furosemide (LASIX) injection 40 mg, 40 mg, intravenous, Q12H, Huey Hurtado MD, 40 mg at 11/30/24 0813 gabapentin (NEURONTIN) capsule 800 mg, 800 mg, oral, TID, Huey Hurtado MD, 800 mg at 11/30/24 0812 glucagon injection 1 mg, 1 mg, intraMUSCULAR, Q15 Min PRN, Huey Hurtado MD glucose chew tab 16 g, 16 g, oral, Q15 Min PRN, Huey Hurtado MD hydrALAZINE (APRESOLINE) injection 10 mg, 10 mg, intravenous, Q6H PRN, Huey Hurtado MD insulin lispro (HUMALOG, ADMELOG) injection 0-18 Units, 0-18 Units, subcutaneous, 4x Daily AC, Huey Hurtado MD melatonin tablet 3 mg, 3 mg, oral, Every Night PRN, Huey Hurtado MD ondansetron (ZOFRAN-ODT) disintegrating tablet 4 mg, 4 mg, oral, Q8H PRN OR ondansetron (ZOFRAN) injection 4 mg, 4 mg, intravenous, Q8H PRN, Huey Hurtado MD prochlorperazine (COMPAZINE) injection 10 mg, 10 mg, intravenous, Q6H PRN, Huey Hurtado MD Insert Peripheral IV, , , Once AND Saline Lock IV, , , Once AND sodium chloride flush 10 mL, 10 mL, intravenous, PRN, Huey Hurtado MD spironolactone (ALDACTONE) tablet 25 mg, 25 mg, oral, Daily, Huey Hurtado MD, 25 mg at 11/30/24 0811 Home Medications: Medications Prior to Admission Medication Sig Dispense Refill Last Dose/Taking albuterol 90 mcg/actuation inhaler Inhale 1 puff by mouth every 6 (six) hours as needed for wheezing. ammonium lactate (AMLACTIN) 12 % cream Apply 1 g topically as needed for dry skin. aspirin 81 MG chewable tablet Take 1 tablet (81 mg total) by mouth daily. atorvastatin (LIPITOR) 20 MG tablet Take 1 tablet (20 mg total) by mouth nightly. bisoprolol (ZEBETA) 10 MG tablet Take 1 tablet (10 mg total) by mouth daily. cholecalciferol (VITAMIN D3) 125 mcg (5,000 unit) tablet Take 2 tablets (10,000 Units total) by mouth daily. clopidogreL (PLAVIX) 75 mg tablet Take 1 tablet (75 mg total) by mouth daily Look-alike/Sound-alike medication. colestipoL (COLESTID) 5 gram granules Take 1 g by mouth daily. furosemide (LASIX) 40 MG tablet Take 1 tablet (40 mg total) by mouth 2 (two) times daily. gabapentin (NEURONTIN) 800 MG tablet Take 1 tablet (800 mg total) by mouth 3 (three) times daily. Max Daily Amount: 2,400 mg HYDROcodone-acetaminophen (NORCO) 10-325 mg per tablet Take 1 tablet by mouth every 6 (six) hours as needed for pain. Max Daily Amount: 4 tablets hydrOXYzine pamoate (VISTARIL) 50 MG capsule Take 1 capsule (50 mg total) by mouth every night as needed for itching (sleep) Look-alike/Sound-alike medication. insulin aspart U-100 (NovoLOG) 100 unit/mL (3 mL) inpn Inject under the skin 4 (four) times daily before meals and nightly. lisinopriL (ZESTRIL) 10 MG tablet Take 1 tablet (10 mg total) by mouth daily. metFORMIN (GLUCOPHAGE) 1000 MG tablet Take 1 tablet (1,000 mg total) by mouth 2 (two) times daily with breakfast and dinner Look-alike/Sound-alike medication. tirzepatide 7.5 mg/0.5 mL pnij Inject 7.5 mg under the skin every 7 days. triamcinolone (KENALOG) 0.1 % topical cream Apply 0.1 Applications topically daily to affected area.. vortioxetine (Trintellix) 20 mg tablet Take 1 tablet (20 mg total) by mouth daily. ROS: Review of Systems All other systems reviewed and are negative. Vitals Blood pressure 118/59, pulse 95, temperature 97.7 ??F (36.5 ??C), resp. rate 16, height 1.651 m (5'5 ), weight 102.1 kg (225 lb), SpO2 97%. Physical Exam Vitals reviewed. Constitutional: Appearance: Normal appearance. She is obese. HENT: Head: Normocephalic. Mouth/Throat: Mouth: Mucous membranes are moist. Eyes: Pupils: Pupils are equal, round, and reactive to light. Cardiovascular: Rate and Rhythm: Normal rate and regular rhythm. Pulmonary: Effort: Pulmonary effort is normal. Breath sounds: Normal breath sounds. Abdominal: General: Abdomen is flat. Bowel sounds are normal. There is distension. Musculoskeletal: General: Normal range of motion. Cervical back: Neck supple. Right lower leg: Edema present. Left lower leg: Edema present. Skin: General: Skin is warm and dry. Coloration: Skin is pale. Neurological: General: No focal deficit present. Mental Status: She is alert. Comments: No asterixis Psychiatric: Mood and Affect: Mood normal. Thought Content: Thought content normal. Judgment: Judgment normal. Relevant Results: Results for orders placed or performed during the hospital encounter of 11/30/24 (from the past 24 hours) Comprehensive Metabolic Panel Status: Abnormal Collection Time: 11/30/24 3:40 AM Result Value Ref Range Sodium 144 136 - 145 meq/L Potassium 4.6 3.4 - 5.1 meq/L Chloride 115 (H) 98 - 112 meq/L CO2 20 (L) 22 - 29 meq/L Calcium 8.3 (L) 8.4 - 10.2 mg/dL Glucose 86 82 - 115 mg/dL BUN 74.2 (H) 9.8 - 20.1 mg/dL Creatinine 4.15 (H) 0.57 - 1.11 mg/dL BUN/Creatinine 18 8 - 20 eGFR (mL/min/1.73m2) 12 (L) >=60 mL/min/1.73m2 Albumin 2.2 (L) 3.5 - 5.0 g/dL Alkaline Phosphatase 83 40 - 150 U/L ALT 17 <=34 U/L AST 43 (H) 11 - 34 U/L Total Bilirubin 0.8 0.2 - 1.2 mg/dL Protein, Total 6.5 6.4 - 8.3 g/dL Globulin 4.3 (H) 2.5 - 4.1 g/dL Anion Gap 14 (H) 4 - 12 A/G Ratio 0.5 (L) 0.7 - 1.9 Osmolality Calc 308.1 mOsm/kg Prothrombin time/INR Status: Abnormal Collection Time: 11/30/24 3:40 AM Result Value Ref Range Protime 12.9 (H) 9.0 - 12.0 seconds INR 1.17 (H) 0.80 - 1.10 aPTT Status: Normal Collection Time: 11/30/24 3:40 AM Result Value Ref Range aPTT 27.7 22.0 - 32.0 seconds Lactic Acid with reflex Status: Normal Collection Time: 11/30/24 3:40 AM Result Value Ref Range Lactic Acid Level (mmol/L) 0.9 0.5 - 2.2 mmol/L Magnesium Status: Abnormal Collection Time: 11/30/24 3:40 AM Result Value Ref Range Magnesium 2.7 (H) 1.6 - 2.6 mg/dL Ammonia Status: Normal Collection Time: 11/30/24 3:40 AM Result Value Ref Range Ammonia 59 18 - 72 ??mol/L CBC - Hemogram (-BKR) Status: Abnormal Collection Time: 11/30/24 3:40 AM Result Value Ref Range WBC 1.9 (LL) 4.0 - 10.0 K/??L RBC 2.63 (L) 3.93 - 5.22 M/??L Hemoglobin 8.2 (L) 11.2 - 15.7 GM/DL Hematocrit 26.3 (L) 34.1 - 44.9 % MCV 100 (H) 79 - 95 fL MCH 31.2 25.6 - 32.2 pg MCHC 31.2 (L) 32.2 - 35.5 GM/DL RDW 16.2 (H) 11.7 - 14.4 % Platelets 64 (L) 140 - 375 K/CU MM MPV 10.4 9.4 - 12.3 fL Procalcitonin Status: Normal Collection Time: 11/30/24 3:40 AM Result Value Ref Range Procalcitonin 0.26 See Comment ng/mL Iron, serum Status: Normal Collection Time: 11/30/24 3:40 AM Result Value Ref Range Iron 64 50 - 170 ug/dL Vitamin B12 Status: Normal Collection Time: 11/30/24 3:40 AM Result Value Ref Range Vitamin B12 678 213 - 816 pg/mL Glucose, Nova Meter Status: None Collection Time: 11/30/24 5:13 AM Result Value Ref Range POC-GLUCOSE 96 70 - 110 mg/dL Laboratory Scientist [id number] Radiology Results (last 3 days) No results found for the last 72 hours. Assessment & Plan Principal Problem: Anasarca Assessment: 64 y/o with history of NAFLD presents to our facility w/ increased abdominal distention and LLE. Found to have increased renal function and pancytopenia. She denies alcohol use. She previously saw for NAFLD but never follow up after 2021. 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 --STOP Lasix IV and aldactone until seen by nephrology. --Plan for EGD tomorrow to assess for varices given dark stools --Place on Lactulose and Xifaxan. Titrate Lactulose to 2-3 soft Bms daily --No NSAIDs in order to maintain optimal renal function and reduce risk of GI bleeding --Limit total acetaminophen to no more than 2 grams in a 24 hour period MELD 3.0: 21 at 11/30/2024 3:40 AM MELD-Na: 22 at 11/30/2024 3:40 AM Calculated from: Serum Creatinine: 4.15 mg/dL (Using max of 3 mg/dL) at 11/30/2024 3:40 AM Serum Sodium: 144 meq/L (Using max of 137 meq/L) at 11/30/2024 3:40 AM Total Bilirubin: 0.8 mg/dL (Using min of 1 mg/dL) at 11/30/2024 3:40 AM Serum Albumin: 2.2 g/dL at 11/30/2024 3:40 AM INR(ratio): 1.17 at 11/30/2024 3:40 AM Age at listing (hypothetical): 64 years Sex: Female at 11/30/2024 3:40 AM Electronically signed by Destiney Llanes APRN 11/30/2024 at 8:56 AM Cosigned by Holli Diego MD at 11/30/2024 10:53 AM EDT documented in this encounter OR Notes * Op Note - Scott Daley MD - 12/01/2024 10:49 AM EDT Procedure: EGD Exam Date: 12/01/2024 Attending: Thuy Indication: GIB Consent: The benefits, risks, and alternatives to the procedure were discussed and informed consentwas obtained. The risks discussed included anesthesia reactions, bleeding, perforation, surgery, permanent colostomy, and missed lesions. Preparation: EKG pulse, pulse oximetry and blood pressure monitored. Anesthesia: MAC EBL: ~0mL Procedure: Appropriate time-out protocol was followed: the correct patient, the correct procedure, and the correct equipment in the room were confirmed. The gastroscope was gently passed through the incisoral oriface into the oral cavity and under direct visualization the esophagus was intubated. The endoscope was passed down the esophagus, through the stomach and into the 3rd portion. Retroflexion was performed at the gastroesophageal junction. Color, texture, mucosa and anatomy of esophagus, stomach and duodenum were carefully examined with the scope. The patient tolerated the procedure well and there were no complications. After completion of the examination, patient was transferred to the recovery room. FINDINGS: Oropharynx: Normal Esophagus: Small esophageal varices in distal without high risk stigmata; normal otherwise EG-Junction: Normal Cardia: Normal Fundus: Large amount of retained food; removed majority with net; no underlying varix Body: Few diminutive polyps; not biopsied; normal otherwise; contact bleeding of mucosa Antrum: Large amount of retained food that limited visualization; nor underlying bleeding Pylorus: Normal Duodenum bulb: Ulcer (10mm, clean based, anterior wall, just distal pylorus) 2nd portion: Normal 3rd portion: Normal Impression: EV Retained food Duodenal ulcer PLAN: BID PPI x 8 weeks. Repeat EGD in 8-12 weeks to assess varices outside of acute episode. Abx no morethan 5 days for motility benefit in cirrhotic bleeding. Clear liquid diet today. documented in this encounter Miscellaneous Notes * Plan of Care - Olimpia Mcmillan RN - 12/14/2024 9:47 AM EDT Problem: Compromised Skin Integrity Goal: LTG - Patient will be free from infection Outcome: Progressing Goal: LTG - Patient will demonstrate appropriate pressure relief techniques Outcome: Progressing Goal: LTG - Patient will demonstrate appropriate skin care techniques Outcome: Progressing Goal: LTG - Patient will be free from infection Outcome: Progressing Goal: STG - Patient demonstrates skin care/treatment/dressing change Outcome: Progressing Goal: STG - Patient will maintain good skin integrity Outcome: Progressing Goal: STG - Patient exhibits signs of wound healing. Outcome: Progressing Goal: STG - Patient demonstrates pressure reduction techniques Outcome: Progressing Goal: STG - Patient demonstrates preventative skin care measures Outcome: Progressing * Plan of Care - Jamal Lopez RN - 12/14/2024 12:10 AM EDT Problem: Compromised Skin Integrity Goal: LTG - Patient will be free from infection Outcome: Progressing Problem: Potential for Infection Goal: Remains infection free Description: Assess and monitor vital signs, skin (color, moisture, integrity, turgor), respiratorystatus, urinary and gastrointestinal status, and labs (WBC, cultures). Administer antibiotics and antipyretics as ordered. Ensure aseptic care of all intravenous lines, invasive tubes/drains and wounds. Monitor for signs and symptoms of infection (redness, warmth, discharge, increased body temperature). Wash hands properly before and after each patient care activity. Follow isolation guidelines per hospital protocol/policy. Collaborate with interdisciplinary team and initiate plan and interventions as ordered. Outcome: Progressing Problem: Anxiety Goal: Anxiety is at manageable level Description: Assess and monitor patient's anxiety level. Monitor for signs and symptoms of anxiety both physical and emotional (heart palpitations, chest pain, shortness of breath, headaches, nausea,feeling jumpy, restlessness, irritable, apprehensive). Collaborate with interdisciplinary team and initiate plan and interventions as ordered. Outcome: Progressing * Plan of Care - Hernandez Alvarez - 12/13/2024 10:43 AM EDT Problem: Compromised Skin Integrity Goal: LTG - Patient will be free from infection Outcome: Progressing Goal: LTG - Patient will demonstrate appropriate pressure relief techniques Outcome: Progressing Goal: LTG - Patient will demonstrate appropriate skin care techniques Outcome: Progressing Goal: LTG - Patient will be free from infection Outcome: Progressing Goal: STG - Patient demonstrates skin care/treatment/dressing change Outcome: Progressing Goal: STG - Patient will maintain good skin integrity Outcome: Progressing Goal: STG - Patient exhibits signs of wound healing. Outcome: Progressing Goal: STG - Patient demonstrates pressure reduction techniques Outcome: Progressing Goal: STG - Patient demonstrates preventative skin care measures Outcome: Progressing * Plan of Care - Jamal Lopez RN - 12/13/2024 12:51 AM EDT Problem: Compromised Skin Integrity Goal: LTG - Patient will be free from infection Outcome: Progressing Problem: Potential for Infection Goal: Remains infection free Description: Assess and monitor vital signs, skin (color, moisture, integrity, turgor), respiratorystatus, urinary and gastrointestinal status, and labs (WBC, cultures). Administer antibiotics and antipyretics as ordered. Ensure aseptic care of all intravenous lines, invasive tubes/drains and wounds. Monitor for signs and symptoms of infection (redness, warmth, discharge, increased body temperature). Wash hands properly before and after each patient care activity. Follow isolation guidelines per hospital protocol/policy. Collaborate with interdisciplinary team and initiate plan and interventions as ordered. Outcome: Progressing Problem: Anxiety Goal: Anxiety is at manageable level Description: Assess and monitor patient's anxiety level. Monitor for signs and symptoms of anxiety both physical and emotional (heart palpitations, chest pain, shortness of breath, headaches, nausea,feeling jumpy, restlessness, irritable, apprehensive). Collaborate with interdisciplinary team and initiate plan and interventions as ordered. Outcome: Progressing * Plan of Care - Mary Lou Sidhu RN - 12/12/2024 4:04 PM EDT Problem: Compromised Skin Integrity Goal: LTG - Patient will be free from infection Outcome: Progressing Goal: LTG - Patient will demonstrate appropriate pressure relief techniques Outcome: Progressing Goal: LTG - Patient will demonstrate appropriate skin care techniques Outcome: Progressing Goal: LTG - Patient will be free from infection Outcome: Progressing Goal: STG - Patient demonstrates skin care/treatment/dressing change Outcome: Progressing Goal: STG - Patient will maintain good skin integrity Outcome: Progressing Goal: STG - Patient exhibits signs of wound healing. Outcome: Progressing Goal: STG - Patient demonstrates pressure reduction techniques Outcome: Progressing Goal: STG - Patient demonstrates preventative skin care measures Outcome: Progressing Problem: Potential for Developing a Blood Clot Goal: Tissue perfusion is adequate - venous Description: Assess and monitor skin color and temperature, skin integrity, pulses, capillary refill, edema, pain in extremities, Homans' sign, labs (D- dimer), and diagnostic tests (ultrasound, CT scan, VQ scan). Monitor for signs and symptoms of deep vein thrombosis (swelling of calf/thigh, redness, pain, tenderness). Monitor for signs and symptoms of pulmonary embolism (dyspnea, tachypnea, tachycardia). Collaborate with interdisciplinary team and initiate plans and interventions as needed Outcome: Progressing Problem: Daily Care Goal: Daily care needs are met Description: Assess and monitor ability to perform self care and identify potential discharge needs. Outcome: Progressing Problem: Potential for Infection Goal: Remains infection free Description: Assess and monitor vital signs, skin (color, moisture, integrity, turgor), respiratorystatus, urinary and gastrointestinal status, and labs (WBC, cultures). Administer antibiotics and antipyretics as ordered. Ensure aseptic care of all intravenous lines, invasive tubes/drains and wounds. Monitor for signs and symptoms of infection (redness, warmth, discharge, increased body temperature). Wash hands properly before and after each patient care activity. Follow isolation guidelines per hospital protocol/policy. Collaborate with interdisciplinary team and initiate plan and interventions as ordered. Outcome: Progressing Problem: Psychosocial Needs Goal: Demonstrates ability to cope with hospitalization/illness Description: Assess and monitor patients ability to cope with his/her illness. Outcome: Progressing Goal: Collaborate with patient/family/caregiver to identify patient specific goals for this hospitalization Outcome: Progressing Problem: Anxiety Goal: Anxiety is at manageable level Description: Assess and monitor patient's anxiety level. Monitor for signs and symptoms of anxietyboth physical and emotional (heart palpitations, chest pain, shortness of breath, headaches, nausea, feeling jumpy, restlessness, irritable, apprehensive). Collaborate with interdisciplinary team andinitiate plan and interventions as ordered. Outcome: Progressing Problem: Inadequate Coping Goal: Demonstrates ability to cope effectively Description: Patient is able to verbalize feelings related to emotional state. Outcome: Progressing Goal: Verbalizes adaptive coping mechanisms Description: Able to verbalize adaptive coping mechanisms such as physical activity, distraction, and deep breathing exercises. Outcome: Progressing Goal: Verbalizes personal strengths Description: Spend time with the patient using empathy and active listening skills. Outcome: Progressing Problem: Progressive Mobility Goal: BMAT Level 1 - With full mechanical lifting assistance: Outcome: Progressing Goal: BMAT Level 2 - With 2-person and/or mechanical lifting assistance: Outcome: Progressing Goal: BMAT Level 3 - With 1 to 2-person and/or mechanical lifting assistance: Outcome: Progressing Goal: BMAT Level 4 - With 1-person assistance or mobility aid as needed (walker, cane, crutches): Outcome: Progressing Problem: Discharge Barriers Goal: Patient's discharge needs are met Description: Collaborate with interdisciplinary team and initiate plans and interventions as needed. Outcome: Progressing Problem: Knowledge Deficit Goal: Patient/family/caregiver demonstrates understanding of disease process, treatment plan, medications, and discharge instructions Description: Complete learning assessment and assess knowledge base. Outcome: Progressing Problem: Potential for Falls Goal: Patient will remain free of falls Description: Assess and monitor vitals signs, neurological status including level of consciousness and orientation. Reassess fall risk per hospital policy.Ensure arm band on, uncluttered walking paths in room, adequate room lighting, call light and overbed table within reach, bed in low position, wheels locked, side rails up per policy, and non-skid footwear provided. Outcome: Progressing * Plan of Care - Tori Kamara RN - 12/09/2024 5:31 PM EDT Problem: Compromised Skin Integrity Goal: LTG - Patient will be free from infection Outcome: Progressing Goal: LTG - Patient will demonstrate appropriate pressure relief techniques Outcome: Progressing Goal: LTG - Patient will demonstrate appropriate skin care techniques Outcome: Progressing Goal: LTG - Patient will be free from infection Outcome: Progressing Goal: STG - Patient demonstrates skin care/treatment/dressing change Outcome: Progressing Goal: STG - Patient will maintain good skin integrity Outcome: Progressing Goal: STG - Patient exhibits signs of wound healing. Outcome: Progressing Goal: STG - Patient demonstrates pressure reduction techniques Outcome: Progressing Goal: STG - Patient demonstrates preventative skin care measures Outcome: Progressing Problem: Potential for Developing a Blood Clot Goal: Tissue perfusion is adequate - venous Description: Assess and monitor skin color and temperature, skin integrity, pulses, capillary refill, edema, pain in extremities, Homans' sign, labs (D- dimer), and diagnostic tests (ultrasound, CT scan, VQ scan). Monitor for signs and symptoms of deep vein thrombosis (swelling of calf/thigh, redness, pain, tenderness). Monitor for signs and symptoms of pulmonary embolism (dyspnea, tachypnea, tachycardia). Collaborate with interdisciplinary team and initiate plans and interventions as needed Outcome: Progressing Problem: Daily Care Goal: Daily care needs are met Description: Assess and monitor ability to perform self care and identify potential discharge needs. Outcome: Progressing Problem: Potential for Infection Goal: Remains infection free Description: Assess and monitor vital signs, skin (color, moisture, integrity, turgor), respiratorystatus, urinary and gastrointestinal status, and labs (WBC, cultures). Administer antibiotics and antipyretics as ordered. Ensure aseptic care of all intravenous lines, invasive tubes/drains and wounds. Monitor for signs and symptoms of infection (redness, warmth, discharge, increased body temperature). Wash hands properly before and after each patient care activity. Follow isolation guidelines per hospital protocol/policy. Collaborate with interdisciplinary team and initiate plan and interventions as ordered. Outcome: Progressing Problem: Psychosocial Needs Goal: Demonstrates ability to cope with hospitalization/illness Description: Assess and monitor patients ability to cope with his/her illness. Outcome: Progressing Goal: Collaborate with patient/family/caregiver to identify patient specific goals for this hospitalization Outcome: Progressing Problem: Anxiety Goal: Anxiety is at manageable level Description: Assess and monitor patient's anxiety level. Monitor for signs and symptoms of anxiety both physical and emotional (heart palpitations, chest pain, shortness of breath, headaches, nausea,feeling jumpy, restlessness, irritable, apprehensive). Collaborate with interdisciplinary team and initiate plan and interventions as ordered. Outcome: Progressing Problem: Inadequate Coping Goal: Demonstrates ability to cope effectively Description: Patient is able to verbalize feelings related to emotional state. Outcome: Progressing Goal: Verbalizes adaptive coping mechanisms Description: Able to verbalize adaptive coping mechanisms such as physical activity, distraction, and deep breathing exercises. Outcome: Progressing Goal: Verbalizes personal strengths Description: Spend time with the patient using empathy and active listening skills. Outcome: Progressing Problem: Discharge Barriers Goal: Patient's discharge needs are met Description: Collaborate with interdisciplinary team and initiate plans and interventions as needed. Outcome: Progressing Problem: Knowledge Deficit Goal: Patient/family/caregiver demonstrates understanding of disease process, treatment plan, medications, and discharge instructions Description: Complete learning assessment and assess knowledge base. Outcome: Progressing Problem: Potential for Falls Goal: Patient will remain free of falls Description: Assess and monitor vitals signs, neurological status including level of consciousness and orientation. Reassess fall risk per hospital policy.Ensure arm band on, uncluttered walking paths in room, adequate room lighting, call light and overbed table within reach, bed in low position, wheels locked, side rails up per policy, and non-skid footwear provided. Outcome: Progressing * Plan of Care - Katya Carolina RN - 12/08/2024 9:26 PM EDT Problem: Compromised Skin Integrity Goal: LTG - Patient will be free from infection Outcome: Progressing Goal: LTG - Patient will demonstrate appropriate pressure relief techniques Outcome: Progressing Goal: LTG - Patient will demonstrate appropriate skin care techniques Outcome: Progressing Goal: LTG - Patient will be free from infection Outcome: Progressing Goal: STG - Patient demonstrates skin care/treatment/dressing change Outcome: Progressing Goal: STG - Patient will maintain good skin integrity Outcome: Progressing Goal: STG - Patient exhibits signs of wound healing. Outcome: Progressing Goal: STG - Patient demonstrates pressure reduction techniques Outcome: Progressing Goal: STG - Patient demonstrates preventative skin care measures Outcome: Progressing Problem: Potential for Developing a Blood Clot Goal: Tissue perfusion is adequate - venous Description: Assess and monitor skin color and temperature, skin integrity, pulses, capillary refill, edema, pain in extremities, Homans' sign, labs (D- dimer), and diagnostic tests (ultrasound, CT scan, VQ scan). Monitor for signs and symptoms of deep vein thrombosis (swelling of calf/thigh, redness, pain, tenderness). Monitor for signs and symptoms of pulmonary embolism (dyspnea, tachypnea, tachycardia). Collaborate with interdisciplinary team and initiate plans and interventions as needed Outcome: Progressing Problem: Daily Care Goal: Daily care needs are met Description: Assess and monitor ability to perform self care and identify potential discharge needs. Outcome: Progressing Problem: Potential for Infection Goal: Remains infection free Description: Assess and monitor vital signs, skin (color, moisture, integrity, turgor), respiratorystatus, urinary and gastrointestinal status, and labs (WBC, cultures). Administer antibiotics and antipyretics as ordered. Ensure aseptic care of all intravenous lines, invasive tubes/drains and wounds. Monitor for signs and symptoms of infection (redness, warmth, discharge, increased body temperature). Wash hands properly before and after each patient care activity. Follow isolation guidelines per hospital protocol/policy. Collaborate with interdisciplinary team and initiate plan and interventions as ordered. Outcome: Progressing Problem: Psychosocial Needs Goal: Demonstrates ability to cope with hospitalization/illness Description: Assess and monitor patients ability to cope with his/her illness. Outcome: Progressing Goal: Collaborate with patient/family/caregiver to identify patient specific goals for this hospitalization Outcome: Progressing Problem: Anxiety Goal: Anxiety is at manageable level Description: Assess and monitor patient's anxiety level. Monitor for signs and symptoms of anxiety both physical and emotional (heart palpitations, chest pain, shortness of breath, headaches, nausea,feeling jumpy, restlessness, irritable, apprehensive). Collaborate with interdisciplinary team and initiate plan and interventions as ordered. Outcome: Progressing Problem: Inadequate Coping Goal: Demonstrates ability to cope effectively Description: Patient is able to verbalize feelings related to emotional state. Outcome: Progressing Goal: Verbalizes adaptive coping mechanisms Description: Able to verbalize adaptive coping mechanisms such as physical activity, distraction, and deep breathing exercises. Outcome: Progressing Goal: Verbalizes personal strengths Description: Spend time with the patient using empathy and active listening skills. Outcome: Progressing Problem: Progressive Mobility Goal: BMAT Level 1 - With full mechanical lifting assistance: Outcome: Progressing Goal: BMAT Level 2 - With 2-person and/or mechanical lifting assistance: Outcome: Progressing Goal: BMAT Level 3 - With 1 to 2-person and/or mechanical lifting assistance: Outcome: Progressing Goal: BMAT Level 4 - With 1-person assistance or mobility aid as needed (walker, cane, crutches): Outcome: Progressing Problem: Discharge Barriers Goal: Patient's discharge needs are met Description: Collaborate with interdisciplinary team and initiate plans and interventions as needed. Outcome: Progressing Problem: Knowledge Deficit Goal: Patient/family/caregiver demonstrates understanding of disease process, treatment plan, medications, and discharge instructions Description: Complete learning assessment and assess knowledge base. Outcome: Progressing Problem: Potential for Falls Goal: Patient will remain free of falls Description: Assess and monitor vitals signs, neurological status including level of consciousness and orientation. Reassess fall risk per hospital policy.Ensure arm band on, uncluttered walking paths in room, adequate room lighting, call light and overbed table within reach, bed in low position, wheels locked, side rails up per policy, and non-skid footwear provided. Outcome: Progressing * Plan of Care - Ivonne Johnson - 12/08/2024 1:43 PM EDT Problem: Compromised Skin Integrity Goal: LTG - Patient will be free from infection Outcome: Progressing Goal: LTG - Patient will demonstrate appropriate pressure relief techniques Outcome: Progressing Goal: LTG - Patient will demonstrate appropriate skin care techniques Outcome: Progressing Goal: LTG - Patient will be free from infection Outcome: Progressing Goal: STG - Patient demonstrates skin care/treatment/dressing change Outcome: Progressing Goal: STG - Patient will maintain good skin integrity Outcome: Progressing Goal: STG - Patient exhibits signs of wound healing. Outcome: Progressing Goal: STG - Patient demonstrates pressure reduction techniques Outcome: Progressing Goal: STG - Patient demonstrates preventative skin care measures Outcome: Progressing Problem: Potential for Developing a Blood Clot Goal: Tissue perfusion is adequate - venous Description: Assess and monitor skin color and temperature, skin integrity, pulses, capillary refill, edema, pain in extremities, Homans' sign, labs (D- dimer), and diagnostic tests (ultrasound, CT scan, VQ scan). Monitor for signs and symptoms of deep vein thrombosis (swelling of calf/thigh, redness, pain, tenderness). Monitor for signs and symptoms of pulmonary embolism (dyspnea, tachypnea, tachycardia). Collaborate with interdisciplinary team and initiate plans and interventions as needed Outcome: Progressing Problem: Daily Care Goal: Daily care needs are met Description: Assess and monitor ability to perform self care and identify potential discharge needs. Outcome: Progressing Problem: Potential for Infection Goal: Remains infection free Description: Assess and monitor vital signs, skin (color, moisture, integrity, turgor), respiratorystatus, urinary and gastrointestinal status, and labs (WBC, cultures). Administer antibiotics and antipyretics as ordered. Ensure aseptic care of all intravenous lines, invasive tubes/drains and wounds. Monitor for signs and symptoms of infection (redness, warmth, discharge, increased body temperature). Wash hands properly before and after each patient care activity. Follow isolation guidelines per hospital protocol/policy. Collaborate with interdisciplinary team and initiate plan and interventions as ordered. Outcome: Progressing Problem: Psychosocial Needs Goal: Demonstrates ability to cope with hospitalization/illness Description: Assess and monitor patients ability to cope with his/her illness. Outcome: Progressing Goal: Collaborate with patient/family/caregiver to identify patient specific goals for this hospitalization Outcome: Progressing Problem: Anxiety Goal: Anxiety is at manageable level Description: Assess and monitor patient's anxiety level. Monitor for signs and symptoms of anxiety both physical and emotional (heart palpitations, chest pain, shortness of breath, headaches, nausea,feeling jumpy, restlessness, irritable, apprehensive). Collaborate with interdisciplinary team and initiate plan and interventions as ordered. Outcome: Progressing Problem: Inadequate Coping Goal: Demonstrates ability to cope effectively Description: Patient is able to verbalize feelings related to emotional state. Outcome: Progressing Goal: Verbalizes adaptive coping mechanisms Description: Able to verbalize adaptive coping mechanisms such as physical activity, distraction, and deep breathing exercises. Outcome: Progressing Goal: Verbalizes personal strengths Description: Spend time with the patient using empathy and active listening skills. Outcome: Progressing Problem: Progressive Mobility Goal: BMAT Level 1 - With full mechanical lifting assistance: Outcome: Progressing Goal: BMAT Level 2 - With 2-person and/or mechanical lifting assistance: Outcome: Progressing Goal: BMAT Level 3 - With 1 to 2-person and/or mechanical lifting assistance: Outcome: Progressing Goal: BMAT Level 4 - With 1-person assistance or mobility aid as needed (walker, cane, crutches): Outcome: Progressing Problem: Discharge Barriers Goal: Patient's discharge needs are met Description: Collaborate with interdisciplinary team and initiate plans and interventions as needed. Outcome: Progressing Problem: Knowledge Deficit Goal: Patient/family/caregiver demonstrates understanding of disease process, treatment plan, medications, and discharge instructions Description: Complete learning assessment and assess knowledge base. Outcome: Progressing Problem: Potential for Falls Goal: Patient will remain free of falls Description: Assess and monitor vitals signs, neurological status including level of consciousness and orientation. Reassess fall risk per hospital policy.Ensure arm band on, uncluttered walking paths in room, adequate room lighting, call light and overbed table within reach, bed in low position, wheels locked, side rails up per policy, and non-skid footwear provided. Outcome: Progressing * Plan of Care - Katya Carolina RN - 12/07/2024 9:41 PM EDT Problem: Compromised Skin Integrity Goal: LTG - Patient will be free from infection Outcome: Progressing Goal: LTG - Patient will demonstrate appropriate pressure relief techniques Outcome: Progressing Goal: LTG - Patient will demonstrate appropriate skin care techniques Outcome: Progressing Goal: LTG - Patient will be free from infection Outcome: Progressing Goal: STG - Patient demonstrates skin care/treatment/dressing change Outcome: Progressing Goal: STG - Patient will maintain good skin integrity Outcome: Progressing Goal: STG - Patient exhibits signs of wound healing. Outcome: Progressing Goal: STG - Patient demonstrates pressure reduction techniques Outcome: Progressing Goal: STG - Patient demonstrates preventative skin care measures Outcome: Progressing Problem: Potential for Developing a Blood Clot Goal: Tissue perfusion is adequate - venous Description: Assess and monitor skin color and temperature, skin integrity, pulses, capillary refill, edema, pain in extremities, Homans' sign, labs (D- dimer), and diagnostic tests (ultrasound, CT scan, VQ scan). Monitor for signs and symptoms of deep vein thrombosis (swelling of calf/thigh, redness, pain, tenderness). Monitor for signs and symptoms of pulmonary embolism (dyspnea, tachypnea, tachycardia). Collaborate with interdisciplinary team and initiate plans and interventions as needed Outcome: Progressing Problem: Daily Care Goal: Daily care needs are met Description: Assess and monitor ability to perform self care and identify potential discharge needs. Outcome: Progressing Problem: Potential for Infection Goal: Remains infection free Description: Assess and monitor vital signs, skin (color, moisture, integrity, turgor), respiratorystatus, urinary and gastrointestinal status, and labs (WBC, cultures). Administer antibiotics and antipyretics as ordered. Ensure aseptic care of all intravenous lines, invasive tubes/drains and wounds. Monitor for signs and symptoms of infection (redness, warmth, discharge, increased body temperature). Wash hands properly before and after each patient care activity. Follow isolation guidelines per hospital protocol/policy. Collaborate with interdisciplinary team and initiate plan and interventions as ordered. Outcome: Progressing Problem: Psychosocial Needs Goal: Demonstrates ability to cope with hospitalization/illness Description: Assess and monitor patients ability to cope with his/her illness. Outcome: Progressing Goal: Collaborate with patient/family/caregiver to identify patient specific goals for this hospitalization Outcome: Progressing Problem: Anxiety Goal: Anxiety is at manageable level Description: Assess and monitor patient's anxiety level. Monitor for signs and symptoms of anxiety both physical and emotional (heart palpitations, chest pain, shortness of breath, headaches, nausea,feeling jumpy, restlessness, irritable, apprehensive). Collaborate with interdisciplinary team and initiate plan and interventions as ordered. Outcome: Progressing Problem: Inadequate Coping Goal: Demonstrates ability to cope effectively Description: Patient is able to verbalize feelings related to emotional state. Outcome: Progressing Goal: Verbalizes adaptive coping mechanisms Description: Able to verbalize adaptive coping mechanisms such as physical activity, distraction, and deep breathing exercises. Outcome: Progressing Goal: Verbalizes personal strengths Description: Spend time with the patient using empathy and active listening skills. Outcome: Progressing Problem: Progressive Mobility Goal: BMAT Level 1 - With full mechanical lifting assistance: Outcome: Progressing Goal: BMAT Level 2 - With 2-person and/or mechanical lifting assistance: Outcome: Progressing Goal: BMAT Level 3 - With 1 to 2-person and/or mechanical lifting assistance: Outcome: Progressing Goal: BMAT Level 4 - With 1-person assistance or mobility aid as needed (walker, cane, crutches): Outcome: Progressing Problem: Discharge Barriers Goal: Patient's discharge needs are met Description: Collaborate with interdisciplinary team and initiate plans and interventions as needed. Outcome: Progressing Problem: Knowledge Deficit Goal: Patient/family/caregiver demonstrates understanding of disease process, treatment plan, medications, and discharge instructions Description: Complete learning assessment and assess knowledge base. Outcome: Progressing Problem: Potential for Falls Goal: Patient will remain free of falls Description: Assess and monitor vitals signs, neurological status including level of consciousness and orientation. Reassess fall risk per hospital policy.Ensure arm band on, uncluttered walking paths in room, adequate room lighting, call light and overbed table within reach, bed in low position, wheels locked, side rails up per policy, and non-skid footwear provided. Outcome: Progressing * Plan of Care - Theodora Lorenz RN - 12/07/2024 3:22 PM EDT Problem: Compromised Skin Integrity Goal: LTG - Patient will be free from infection Outcome: Progressing Goal: LTG - Patient will demonstrate appropriate pressure relief techniques Outcome: Progressing Goal: LTG - Patient will demonstrate appropriate skin care techniques Outcome: Progressing Goal: LTG - Patient will be free from infection Outcome: Progressing Goal: STG - Patient demonstrates skin care/treatment/dressing change Outcome: Progressing Goal: STG - Patient will maintain good skin integrity Outcome: Progressing Goal: STG - Patient exhibits signs of wound healing. Outcome: Progressing Goal: STG - Patient demonstrates pressure reduction techniques Outcome: Progressing Goal: STG - Patient demonstrates preventative skin care measures Outcome: Progressing Problem: Potential for Developing a Blood Clot Goal: Tissue perfusion is adequate - venous Description: Assess and monitor skin color and temperature, skin integrity, pulses, capillary refill, edema, pain in extremities, Homans' sign, labs (D- dimer), and diagnostic tests (ultrasound, CT scan, VQ scan). Monitor for signs and symptoms of deep vein thrombosis (swelling of calf/thigh, redness, pain, tenderness). Monitor for signs and symptoms of pulmonary embolism (dyspnea, tachypnea, tachycardia). Collaborate with interdisciplinary team and initiate plans and interventions as needed Outcome: Progressing Problem: Daily Care Goal: Daily care needs are met Description: Assess and monitor ability to perform self care and identify potential discharge needs. Outcome: Progressing Problem: Potential for Infection Goal: Remains infection free Description: Assess and monitor vital signs, skin (color, moisture, integrity, turgor), respiratorystatus, urinary and gastrointestinal status, and labs (WBC, cultures). Administer antibiotics and antipyretics as ordered. Ensure aseptic care of all intravenous lines, invasive tubes/drains and wounds. Monitor for signs and symptoms of infection (redness, warmth, discharge, increased body temperature). Wash hands properly before and after each patient care activity. Follow isolation guidelines per hospital protocol/policy. Collaborate with interdisciplinary team and initiate plan and interventions as ordered. Outcome: Progressing Problem: Psychosocial Needs Goal: Demonstrates ability to cope with hospitalization/illness Description: Assess and monitor patients ability to cope with his/her illness. Outcome: Progressing Goal: Collaborate with patient/family/caregiver to identify patient specific goals for this hospitalization Outcome: Progressing Problem: Anxiety Goal: Anxiety is at manageable level Description: Assess and monitor patient's anxiety level. Monitor for signs and symptoms of anxiety both physical and emotional (heart palpitations, chest pain, shortness of breath, headaches, nausea,feeling jumpy, restlessness, irritable, apprehensive). Collaborate with interdisciplinary team and initiate plan and interventions as ordered. Outcome: Progressing Problem: Inadequate Coping Goal: Demonstrates ability to cope effectively Description: Patient is able to verbalize feelings related to emotional state. Outcome: Progressing Goal: Verbalizes adaptive coping mechanisms Description: Able to verbalize adaptive coping mechanisms such as physical activity, distraction, and deep breathing exercises. Outcome: Progressing Goal: Verbalizes personal strengths Description: Spend time with the patient using empathy and active listening skills. Outcome: Progressing Problem: Progressive Mobility Goal: BMAT Level 1 - With full mechanical lifting assistance: Outcome: Progressing Goal: BMAT Level 2 - With 2-person and/or mechanical lifting assistance: Outcome: Progressing Goal: BMAT Level 3 - With 1 to 2-person and/or mechanical lifting assistance: Outcome: Progressing Goal: BMAT Level 4 - With 1-person assistance or mobility aid as needed (walker, cane, crutches): Outcome: Progressing Problem: Discharge Barriers Goal: Patient's discharge needs are met Description: Collaborate with interdisciplinary team and initiate plans and interventions as needed. Outcome: Progressing Problem: Knowledge Deficit Goal: Patient/family/caregiver demonstrates understanding of disease process, treatment plan, medications, and discharge instructions Description: Complete learning assessment and assess knowledge base. Outcome: Progressing Problem: Potential for Falls Goal: Patient will remain free of falls Description: Assess and monitor vitals signs, neurological status including level of consciousness and orientation. Reassess fall risk per hospital policy.Ensure arm band on, uncluttered walking paths in room, adequate room lighting, call light and overbed table within reach, bed in low position, wheels locked, side rails up per policy, and non-skid footwear provided. Outcome: Progressing * Plan of Care - Bernadette Brennan RN - 12/06/2024 11:26 PM EDT Problem: Compromised Skin Integrity Goal: LTG - Patient will be free from infection Outcome: Progressing Goal: LTG - Patient will demonstrate appropriate pressure relief techniques Outcome: Progressing Goal: LTG - Patient will demonstrate appropriate skin care techniques Outcome: Progressing Goal: LTG - Patient will be free from infection Outcome: Progressing Goal: STG - Patient demonstrates skin care/treatment/dressing change Outcome: Progressing Goal: STG - Patient will maintain good skin integrity Outcome: Progressing Goal: STG - Patient exhibits signs of wound healing. Outcome: Progressing Goal: STG - Patient demonstrates pressure reduction techniques Outcome: Progressing Goal: STG - Patient demonstrates preventative skin care measures Outcome: Progressing Problem: Potential for Developing a Blood Clot Goal: Tissue perfusion is adequate - venous Description: Assess and monitor skin color and temperature, skin integrity, pulses, capillary refill, edema, pain in extremities, Homans' sign, labs (D- dimer), and diagnostic tests (ultrasound, CT scan, VQ scan). Monitor for signs and symptoms of deep vein thrombosis (swelling of calf/thigh, redness, pain, tenderness). Monitor for signs and symptoms of pulmonary embolism (dyspnea, tachypnea, tachycardia). Collaborate with interdisciplinary team and initiate plans and interventions as needed Outcome: Progressing Problem: Daily Care Goal: Daily care needs are met Description: Assess and monitor ability to perform self care and identify potential discharge needs. Outcome: Progressing Problem: Potential for Infection Goal: Remains infection free Description: Assess and monitor vital signs, skin (color, moisture, integrity, turgor), respiratorystatus, urinary and gastrointestinal status, and labs (WBC, cultures). Administer antibiotics and antipyretics as ordered. Ensure aseptic care of all intravenous lines, invasive tubes/drains and wounds. Monitor for signs and symptoms of infection (redness, warmth, discharge, increased body temperature). Wash hands properly before and after each patient care activity. Follow isolation guidelines per hospital protocol/policy. Collaborate with interdisciplinary team and initiate plan and interventions as ordered. Outcome: Progressing Problem: Psychosocial Needs Goal: Demonstrates ability to cope with hospitalization/illness Description: Assess and monitor patients ability to cope with his/her illness. Outcome: Progressing Goal: Collaborate with patient/family/caregiver to identify patient specific goals for this hospitalization Outcome: Progressing Problem: Anxiety Goal: Anxiety is at manageable level Description: Assess and monitor patient's anxiety level. Monitor for signs and symptoms of anxiety both physical and emotional (heart palpitations, chest pain, shortness of breath, headaches, nausea,feeling jumpy, restlessness, irritable, apprehensive). Collaborate with interdisciplinary team and initiate plan and interventions as ordered. Outcome: Progressing Problem: Inadequate Coping Goal: Demonstrates ability to cope effectively Description: Patient is able to verbalize feelings related to emotional state. Outcome: Progressing Goal: Verbalizes adaptive coping mechanisms Description: Able to verbalize adaptive coping mechanisms such as physical activity, distraction, and deep breathing exercises. Outcome: Progressing Goal: Verbalizes personal strengths Description: Spend time with the patient using empathy and active listening skills. Outcome: Progressing Problem: Progressive Mobility Goal: BMAT Level 1 - With full mechanical lifting assistance: Outcome: Progressing Goal: BMAT Level 2 - With 2-person and/or mechanical lifting assistance: Outcome: Progressing Goal: BMAT Level 3 - With 1 to 2-person and/or mechanical lifting assistance: Outcome: Progressing Goal: BMAT Level 4 - With 1-person assistance or mobility aid as needed (walker, cane, crutches): Outcome: Progressing Problem: Discharge Barriers Goal: Patient's discharge needs are met Description: Collaborate with interdisciplinary team and initiate plans and interventions as needed. Outcome: Progressing Problem: Knowledge Deficit Goal: Patient/family/caregiver demonstrates understanding of disease process, treatment plan, medications, and discharge instructions Description: Complete learning assessment and assess knowledge base. Outcome: Progressing Problem: Potential for Falls Goal: Patient will remain free of falls Description: Assess and monitor vitals signs, neurological status including level of consciousness and orientation. Reassess fall risk per hospital policy.Ensure arm band on, uncluttered walking paths in room, adequate room lighting, call light and overbed table within reach, bed in low position, wheels locked, side rails up per policy, and non-skid footwear provided. Outcome: Progressing * Plan of Care - Gianna Senior RN - 12/06/2024 6:29 PM EDT Problem: Compromised Skin Integrity Goal: LTG - Patient will be free from infection Outcome: Progressing Goal: LTG - Patient will demonstrate appropriate pressure relief techniques Outcome: Progressing Goal: LTG - Patient will demonstrate appropriate skin care techniques Outcome: Progressing Goal: LTG - Patient will be free from infection Outcome: Progressing Goal: STG - Patient demonstrates skin care/treatment/dressing change Outcome: Progressing Goal: STG - Patient will maintain good skin integrity Outcome: Progressing Goal: STG - Patient exhibits signs of wound healing. Outcome: Progressing Goal: STG - Patient demonstrates pressure reduction techniques Outcome: Progressing Goal: STG - Patient demonstrates preventative skin care measures Outcome: Progressing Problem: Potential for Developing a Blood Clot Goal: Tissue perfusion is adequate - venous Description: Assess and monitor skin color and temperature, skin integrity, pulses, capillary refill, edema, pain in extremities, Homans' sign, labs (D- dimer), and diagnostic tests (ultrasound, CT scan, VQ scan). Monitor for signs and symptoms of deep vein thrombosis (swelling of calf/thigh, redness, pain, tenderness). Monitor for signs and symptoms of pulmonary embolism (dyspnea, tachypnea, tachycardia). Collaborate with interdisciplinary team and initiate plans and interventions as needed Outcome: Progressing Problem: Daily Care Goal: Daily care needs are met Description: Assess and monitor ability to perform self care and identify potential discharge needs. Outcome: Progressing Problem: Potential for Infection Goal: Remains infection free Description: Assess and monitor vital signs, skin (color, moisture, integrity, turgor), respiratorystatus, urinary and gastrointestinal status, and labs (WBC, cultures). Administer antibiotics and antipyretics as ordered. Ensure aseptic care of all intravenous lines, invasive tubes/drains and wounds. Monitor for signs and symptoms of infection (redness, warmth, discharge, increased body temperature). Wash hands properly before and after each patient care activity. Follow isolation guidelines per hospital protocol/policy. Collaborate with interdisciplinary team and initiate plan and interventions as ordered. Outcome: Progressing Problem: Psychosocial Needs Goal: Demonstrates ability to cope with hospitalization/illness Description: Assess and monitor patients ability to cope with his/her illness. Outcome: Progressing Goal: Collaborate with patient/family/caregiver to identify patient specific goals for this hospitalization Outcome: Progressing Problem: Anxiety Goal: Anxiety is at manageable level Description: Assess and monitor patient's anxiety level. Monitor for signs and symptoms of anxiety both physical and emotional (heart palpitations, chest pain, shortness of breath, headaches, nausea,feeling jumpy, restlessness, irritable, apprehensive). Collaborate with interdisciplinary team and initiate plan and interventions as ordered. Outcome: Progressing Problem: Inadequate Coping Goal: Demonstrates ability to cope effectively Description: Patient is able to verbalize feelings related to emotional state. Outcome: Progressing Goal: Verbalizes adaptive coping mechanisms Description: Able to verbalize adaptive coping mechanisms such as physical activity, distraction, and deep breathing exercises. Outcome: Progressing Goal: Verbalizes personal strengths Description: Spend time with the patient using empathy and active listening skills. Outcome: Progressing Problem: Progressive Mobility Goal: BMAT Level 1 - With full mechanical lifting assistance: Outcome: Progressing Goal: BMAT Level 2 - With 2-person and/or mechanical lifting assistance: Outcome: Progressing Goal: BMAT Level 3 - With 1 to 2-person and/or mechanical lifting assistance: Outcome: Progressing Goal: BMAT Level 4 - With 1-person assistance or mobility aid as needed (walker, cane, crutches): Outcome: Progressing Problem: Discharge Barriers Goal: Patient's discharge needs are met Description: Collaborate with interdisciplinary team and initiate plans and interventions as needed. Outcome: Progressing Problem: Knowledge Deficit Goal: Patient/family/caregiver demonstrates understanding of disease process, treatment plan, medications, and discharge instructions Description: Complete learning assessment and assess knowledge base. Outcome: Progressing Problem: Potential for Falls Goal: Patient will remain free of falls Description: Assess and monitor vitals signs, neurological status including level of consciousness and orientation. Reassess fall risk per hospital policy.Ensure arm band on, uncluttered walking paths in room, adequate room lighting, call light and overbed table within reach, bed in low position, wheels locked, side rails up per policy, and non-skid footwear provided. Outcome: Progressing * Plan of Care - Bernadette Brennan RN - 12/05/2024 11:15 PM EDT Problem: Compromised Skin Integrity Goal: LTG - Patient will be free from infection Outcome: Progressing Goal: LTG - Patient will demonstrate appropriate pressure relief techniques Outcome: Progressing Goal: LTG - Patient will demonstrate appropriate skin care techniques Outcome: Progressing Goal: LTG - Patient will be free from infection Outcome: Progressing Goal: STG - Patient demonstrates skin care/treatment/dressing change Outcome: Progressing Goal: STG - Patient will maintain good skin integrity Outcome: Progressing Goal: STG - Patient exhibits signs of wound healing. Outcome: Progressing Goal: STG - Patient demonstrates pressure reduction techniques Outcome: Progressing Goal: STG - Patient demonstrates preventative skin care measures Outcome: Progressing Problem: Potential for Developing a Blood Clot Goal: Tissue perfusion is adequate - venous Description: Assess and monitor skin color and temperature, skin integrity, pulses, capillary refill, edema, pain in extremities, Homans' sign, labs (D- dimer), and diagnostic tests (ultrasound, CT scan, VQ scan). Monitor for signs and symptoms of deep vein thrombosis (swelling of calf/thigh, redness, pain, tenderness). Monitor for signs and symptoms of pulmonary embolism (dyspnea, tachypnea, tachycardia). Collaborate with interdisciplinary team and initiate plans and interventions as needed Outcome: Progressing Problem: Daily Care Goal: Daily care needs are met Description: Assess and monitor ability to perform self care and identify potential discharge needs. Outcome: Progressing Problem: Potential for Infection Goal: Remains infection free Description: Assess and monitor vital signs, skin (color, moisture, integrity, turgor), respiratorystatus, urinary and gastrointestinal status, and labs (WBC, cultures). Administer antibiotics and antipyretics as ordered. Ensure aseptic care of all intravenous lines, invasive tubes/drains and wounds. Monitor for signs and symptoms of infection (redness, warmth, discharge, increased body temperature). Wash hands properly before and after each patient care activity. Follow isolation guidelines per hospital protocol/policy. Collaborate with interdisciplinary team and initiate plan and interventions as ordered. Outcome: Progressing Problem: Psychosocial Needs Goal: Demonstrates ability to cope with hospitalization/illness Description: Assess and monitor patients ability to cope with his/her illness. Outcome: Progressing Goal: Collaborate with patient/family/caregiver to identify patient specific goals for this hospitalization Outcome: Progressing Problem: Anxiety Goal: Anxiety is at manageable level Description: Assess and monitor patient's anxiety level. Monitor for signs and symptoms of anxiety both physical and emotional (heart palpitations, chest pain, shortness of breath, headaches, nausea,feeling jumpy, restlessness, irritable, apprehensive). Collaborate with interdisciplinary team and initiate plan and interventions as ordered. Outcome: Progressing Problem: Inadequate Coping Goal: Demonstrates ability to cope effectively Description: Patient is able to verbalize feelings related to emotional state. Outcome: Progressing Goal: Verbalizes adaptive coping mechanisms Description: Able to verbalize adaptive coping mechanisms such as physical activity, distraction, and deep breathing exercises. Outcome: Progressing Goal: Verbalizes personal strengths Description: Spend time with the patient using empathy and active listening skills. Outcome: Progressing Problem: Progressive Mobility Goal: BMAT Level 1 - With full mechanical lifting assistance: Outcome: Progressing Goal: BMAT Level 2 - With 2-person and/or mechanical lifting assistance: Outcome: Progressing Goal: BMAT Level 3 - With 1 to 2-person and/or mechanical lifting assistance: Outcome: Progressing Goal: BMAT Level 4 - With 1-person assistance or mobility aid as needed (walker, cane, crutches): Outcome: Progressing Problem: Discharge Barriers Goal: Patient's discharge needs are met Description: Collaborate with interdisciplinary team and initiate plans and interventions as needed. Outcome: Progressing Problem: Knowledge Deficit Goal: Patient/family/caregiver demonstrates understanding of disease process, treatment plan, medications, and discharge instructions Description: Complete learning assessment and assess knowledge base. Outcome: Progressing Problem: Potential for Falls Goal: Patient will remain free of falls Description: Assess and monitor vitals signs, neurological status including level of consciousness and orientation. Reassess fall risk per hospital policy.Ensure arm band on, uncluttered walking paths in room, adequate room lighting, call light and overbed table within reach, bed in low position, wheels locked, side rails up per policy, and non-skid footwear provided. Outcome: Progressing * Hospital Course - Timothy Bai MD - 12/05/2024 11:21 AM EDT This is a 64 years old female who was admitted for anasarca and ascites with GERMÁN, she developed A-fib with RVR, was on amiodarone drip, creatinine is trending down gradually * Plan of Care - Neva Parada RN - 12/05/2024 4:43 AM EDT Problem: Compromised Skin Integrity Goal: LTG - Patient will be free from infection Outcome: Progressing Goal: LTG - Patient will demonstrate appropriate pressure relief techniques Outcome: Progressing Goal: LTG - Patient will demonstrate appropriate skin care techniques Outcome: Progressing Goal: LTG - Patient will be free from infection Outcome: Progressing Goal: STG - Patient demonstrates skin care/treatment/dressing change Outcome: Progressing Goal: STG - Patient will maintain good skin integrity Outcome: Progressing Goal: STG - Patient exhibits signs of wound healing. Outcome: Progressing Goal: STG - Patient demonstrates pressure reduction techniques Outcome: Progressing Goal: STG - Patient demonstrates preventative skin care measures Outcome: Progressing Problem: Potential for Developing a Blood Clot Goal: Tissue perfusion is adequate - venous Description: Assess and monitor skin color and temperature, skin integrity, pulses, capillary refill, edema, pain in extremities, Homans' sign, labs (D- dimer), and diagnostic tests (ultrasound, CT scan, VQ scan). Monitor for signs and symptoms of deep vein thrombosis (swelling of calf/thigh, redness, pain, tenderness). Monitor for signs and symptoms of pulmonary embolism (dyspnea, tachypnea, tachycardia). Collaborate with interdisciplinary team and initiate plans and interventions as needed Outcome: Progressing Problem: Daily Care Goal: Daily care needs are met Description: Assess and monitor ability to perform self care and identify potential discharge needs. Outcome: Progressing Problem: Potential for Infection Goal: Remains infection free Description: Assess and monitor vital signs, skin (color, moisture, integrity, turgor), respiratorystatus, urinary and gastrointestinal status, and labs (WBC, cultures). Administer antibiotics and antipyretics as ordered. Ensure aseptic care of all intravenous lines, invasive tubes/drains and wounds. Monitor for signs and symptoms of infection (redness, warmth, discharge, increased body temperature). Wash hands properly before and after each patient care activity. Follow isolation guidelines per hospital protocol/policy. Collaborate with interdisciplinary team and initiate plan and interventions as ordered. Outcome: Progressing Problem: Psychosocial Needs Goal: Demonstrates ability to cope with hospitalization/illness Description: Assess and monitor patients ability to cope with his/her illness. Outcome: Progressing Goal: Collaborate with patient/family/caregiver to identify patient specific goals for this hospitalization Outcome: Progressing Problem: Anxiety Goal: Anxiety is at manageable level Description: Assess and monitor patient's anxiety level. Monitor for signs and symptoms of anxiety both physical and emotional (heart palpitations, chest pain, shortness of breath, headaches, nausea,feeling jumpy, restlessness, irritable, apprehensive). Collaborate with interdisciplinary team and initiate plan and interventions as ordered. Outcome: Progressing Problem: Inadequate Coping Goal: Demonstrates ability to cope effectively Description: Patient is able to verbalize feelings related to emotional state. Outcome: Progressing Goal: Verbalizes adaptive coping mechanisms Description: Able to verbalize adaptive coping mechanisms such as physical activity, distraction, and deep breathing exercises. Outcome: Progressing Goal: Verbalizes personal strengths Description: Spend time with the patient using empathy and active listening skills. Outcome: Progressing Problem: Progressive Mobility Goal: BMAT Level 1 - With full mechanical lifting assistance: Outcome: Progressing Goal: BMAT Level 2 - With 2-person and/or mechanical lifting assistance: Outcome: Progressing Goal: BMAT Level 3 - With 1 to 2-person and/or mechanical lifting assistance: Outcome: Progressing Goal: BMAT Level 4 - With 1-person assistance or mobility aid as needed (walker, cane, crutches): Outcome: Progressing Problem: Discharge Barriers Goal: Patient's discharge needs are met Description: Collaborate with interdisciplinary team and initiate plans and interventions as needed. Outcome: Progressing Problem: Knowledge Deficit Goal: Patient/family/caregiver demonstrates understanding of disease process, treatment plan, medications, and discharge instructions Description: Complete learning assessment and assess knowledge base. Outcome: Progressing Problem: Potential for Falls Goal: Patient will remain free of falls Description: Assess and monitor vitals signs, neurological status including level of consciousness and orientation. Reassess fall risk per hospital policy.Ensure arm band on, uncluttered walking paths in room, adequate room lighting, call light and overbed table within reach, bed in low position, wheels locked, side rails up per policy, and non-skid footwear provided. Outcome: Progressing * Plan of Care - Bernadette Brennan RN - 12/02/2024 10:15 PM EDT Problem: Compromised Skin Integrity Goal: LTG - Patient will be free from infection Outcome: Progressing Goal: LTG - Patient will demonstrate appropriate pressure relief techniques Outcome: Progressing Goal: LTG - Patient will demonstrate appropriate skin care techniques Outcome: Progressing Goal: LTG - Patient will be free from infection Outcome: Progressing Goal: STG - Patient demonstrates skin care/treatment/dressing change Outcome: Progressing Goal: STG - Patient will maintain good skin integrity Outcome: Progressing Goal: STG - Patient exhibits signs of wound healing. Outcome: Progressing Goal: STG - Patient demonstrates pressure reduction techniques Outcome: Progressing Goal: STG - Patient demonstrates preventative skin care measures Outcome: Progressing Problem: Potential for Developing a Blood Clot Goal: Tissue perfusion is adequate - venous Description: Assess and monitor skin color and temperature, skin integrity, pulses, capillary refill, edema, pain in extremities, Homans' sign, labs (D- dimer), and diagnostic tests (ultrasound, CT scan, VQ scan). Monitor for signs and symptoms of deep vein thrombosis (swelling of calf/thigh, redness, pain, tenderness). Monitor for signs and symptoms of pulmonary embolism (dyspnea, tachypnea, tachycardia). Collaborate with interdisciplinary team and initiate plans and interventions as needed Outcome: Progressing Problem: Daily Care Goal: Daily care needs are met Description: Assess and monitor ability to perform self care and identify potential discharge needs. Outcome: Progressing Problem: Potential for Infection Goal: Remains infection free Description: Assess and monitor vital signs, skin (color, moisture, integrity, turgor), respiratorystatus, urinary and gastrointestinal status, and labs (WBC, cultures). Administer antibiotics and antipyretics as ordered. Ensure aseptic care of all intravenous lines, invasive tubes/drains and wounds. Monitor for signs and symptoms of infection (redness, warmth, discharge, increased body temperature). Wash hands properly before and after each patient care activity. Follow isolation guidelines per hospital protocol/policy. Collaborate with interdisciplinary team and initiate plan and interventions as ordered. Outcome: Progressing Problem: Psychosocial Needs Goal: Demonstrates ability to cope with hospitalization/illness Description: Assess and monitor patients ability to cope with his/her illness. Outcome: Progressing Goal: Collaborate with patient/family/caregiver to identify patient specific goals for this hospitalization Outcome: Progressing Problem: Anxiety Goal: Anxiety is at manageable level Description: Assess and monitor patient's anxiety level. Monitor for signs and symptoms of anxiety both physical and emotional (heart palpitations, chest pain, shortness of breath, headaches, nausea,feeling jumpy, restlessness, irritable, apprehensive). Collaborate with interdisciplinary team and initiate plan and interventions as ordered. Outcome: Progressing Problem: Inadequate Coping Goal: Demonstrates ability to cope effectively Description: Patient is able to verbalize feelings related to emotional state. Outcome: Progressing Goal: Verbalizes adaptive coping mechanisms Description: Able to verbalize adaptive coping mechanisms such as physical activity, distraction, and deep breathing exercises. Outcome: Progressing Goal: Verbalizes personal strengths Description: Spend time with the patient using empathy and active listening skills. Outcome: Progressing Problem: Progressive Mobility Goal: BMAT Level 1 - With full mechanical lifting assistance: Outcome: Progressing Goal: BMAT Level 2 - With 2-person and/or mechanical lifting assistance: Outcome: Progressing Goal: BMAT Level 3 - With 1 to 2-person and/or mechanical lifting assistance: Outcome: Progressing Goal: BMAT Level 4 - With 1-person assistance or mobility aid as needed (walker, cane, crutches): Outcome: Progressing Problem: Discharge Barriers Goal: Patient's discharge needs are met Description: Collaborate with interdisciplinary team and initiate plans and interventions as needed. Outcome: Progressing Problem: Knowledge Deficit Goal: Patient/family/caregiver demonstrates understanding of disease process, treatment plan, medications, and discharge instructions Description: Complete learning assessment and assess knowledge base. Outcome: Progressing Problem: Potential for Falls Goal: Patient will remain free of falls Description: Assess and monitor vitals signs, neurological status including level of consciousness and orientation. Reassess fall risk per hospital policy.Ensure arm band on, uncluttered walking paths in room, adequate room lighting, call light and overbed table within reach, bed in low position, wheels locked, side rails up per policy, and non-skid footwear provided. Outcome: Progressing * Plan of Care - Bernadette Brennan RN - 12/01/2024 11:53 PM EDT Problem: Compromised Skin Integrity Goal: LTG - Patient will be free from infection Outcome: Progressing Goal: LTG - Patient will demonstrate appropriate pressure relief techniques Outcome: Progressing Goal: LTG - Patient will demonstrate appropriate skin care techniques Outcome: Progressing Goal: LTG - Patient will be free from infection Outcome: Progressing Goal: STG - Patient demonstrates skin care/treatment/dressing change Outcome: Progressing Goal: STG - Patient will maintain good skin integrity Outcome: Progressing Goal: STG - Patient exhibits signs of wound healing. Outcome: Progressing Goal: STG - Patient demonstrates pressure reduction techniques Outcome: Progressing Goal: STG - Patient demonstrates preventative skin care measures Outcome: Progressing Problem: Potential for Developing a Blood Clot Goal: Tissue perfusion is adequate - venous Description: Assess and monitor skin color and temperature, skin integrity, pulses, capillary refill, edema, pain in extremities, Homans' sign, labs (D- dimer), and diagnostic tests (ultrasound, CT scan, VQ scan). Monitor for signs and symptoms of deep vein thrombosis (swelling of calf/thigh, redness, pain, tenderness). Monitor for signs and symptoms of pulmonary embolism (dyspnea, tachypnea, tachycardia). Collaborate with interdisciplinary team and initiate plans and interventions as needed Outcome: Progressing Problem: Daily Care Goal: Daily care needs are met Description: Assess and monitor ability to perform self care and identify potential discharge needs. Outcome: Progressing Problem: Potential for Infection Goal: Remains infection free Description: Assess and monitor vital signs, skin (color, moisture, integrity, turgor), respiratorystatus, urinary and gastrointestinal status, and labs (WBC, cultures). Administer antibiotics and antipyretics as ordered. Ensure aseptic care of all intravenous lines, invasive tubes/drains and wounds. Monitor for signs and symptoms of infection (redness, warmth, discharge, increased body temperature). Wash hands properly before and after each patient care activity. Follow isolation guidelines per hospital protocol/policy. Collaborate with interdisciplinary team and initiate plan and interventions as ordered. Outcome: Progressing Problem: Psychosocial Needs Goal: Demonstrates ability to cope with hospitalization/illness Description: Assess and monitor patients ability to cope with his/her illness. Outcome: Progressing Goal: Collaborate with patient/family/caregiver to identify patient specific goals for this hospitalization Outcome: Progressing Problem: Anxiety Goal: Anxiety is at manageable level Description: Assess and monitor patient's anxiety level. Monitor for signs and symptoms of anxiety both physical and emotional (heart palpitations, chest pain, shortness of breath, headaches, nausea,feeling jumpy, restlessness, irritable, apprehensive). Collaborate with interdisciplinary team and initiate plan and interventions as ordered. Outcome: Progressing Problem: Inadequate Coping Goal: Demonstrates ability to cope effectively Description: Patient is able to verbalize feelings related to emotional state. Outcome: Progressing Goal: Verbalizes adaptive coping mechanisms Description: Able to verbalize adaptive coping mechanisms such as physical activity, distraction, and deep breathing exercises. Outcome: Progressing Goal: Verbalizes personal strengths Description: Spend time with the patient using empathy and active listening skills. Outcome: Progressing Problem: Progressive Mobility Goal: BMAT Level 1 - With full mechanical lifting assistance: Outcome: Progressing Goal: BMAT Level 2 - With 2-person and/or mechanical lifting assistance: Outcome: Progressing Goal: BMAT Level 3 - With 1 to 2-person and/or mechanical lifting assistance: Outcome: Progressing Goal: BMAT Level 4 - With 1-person assistance or mobility aid as needed (walker, cane, crutches): Outcome: Progressing Problem: Discharge Barriers Goal: Patient's discharge needs are met Description: Collaborate with interdisciplinary team and initiate plans and interventions as needed. Outcome: Progressing Problem: Knowledge Deficit Goal: Patient/family/caregiver demonstrates understanding of disease process, treatment plan, medications, and discharge instructions Description: Complete learning assessment and assess knowledge base. Outcome: Progressing Problem: Potential for Falls Goal: Patient will remain free of falls Description: Assess and monitor vitals signs, neurological status including level of consciousness and orientation. Reassess fall risk per hospital policy.Ensure arm band on, uncluttered walking paths in room, adequate room lighting, call light and overbed table within reach, bed in low position, wheels locked, side rails up per policy, and non-skid footwear provided. Outcome: Progressing * Plan of Care - Hernandez Alvarez - 12/01/2024 12:28 PM EDT Problem: Compromised Skin Integrity Goal: LTG - Patient will be free from infection Outcome: Progressing Problem: Pain Goal: Patient's pain/discomfort is manageable Description: Assess and monitor patient's pain using appropriate pain scale. Collaborate with interdisciplinary team and initiate plan and interventions as ordered. Re-assess patient's pain level after pain management intervention. Outcome: Adequate for Discharge Problem: Safety Goal: Patient will be injury free during hospitalization Description: Assess and monitor vitals signs, neurological status including level of consciousness and orientation. Assess patient's risk for falls and implement fall prevention plan of care and interventions per hospital policy. Ensure arm band on, uncluttered walking paths in room, adequate room lighting, call light and overbed table within reach, bed in low position, wheels locked, side rails up per policy, and non-skid footwear provided. Outcome: Adequate for Discharge * Plan of Care - Hernandez Alvarez - 11/30/2024 9:41 AM EDT Problem: Compromised Skin Integrity Goal: LTG - Patient will be free from infection Outcome: Progressing Goal: LTG - Patient will maintain/improve skin integrity through proper skin care techniques Outcome: Adequate for Discharge Goal: STG - Patient demonstrates pressure reduction techniques Outcome: Progressing * Significant Event - Huey Hurtado MD - 11/30/2024 4:29 AM EDT Patient's CBC listed below showing pancytopenia. Already placed patient on prophylactic SBP IV Rocephin. Will also consult hematology oncology due to pancytopenia. Patient may benefit from bone marrow biopsy in near future. Results for orders placed or performed during the hospital encounter of 11/30/24 (from the past 24 hours) CBC - Hemogram (SJ-BKR) Status: Abnormal Collection Time: 11/30/24 3:40 AM Result Value Ref Range WBC 1.9 (LL) 4.0 - 10.0 K/??L RBC 2.63 (L) 3.93 - 5.22 M/??L Hemoglobin 8.2 (L) 11.2 - 15.7 GM/DL Hematocrit 26.3 (L) 34.1 - 44.9 % MCV 100 (H) 79 - 95 fL MCH 31.2 25.6 - 32.2 pg MCHC 31.2 (L) 32.2 - 35.5 GM/DL RDW 16.2 (H) 11.7 - 14.4 % Platelets 64 (L) 140 - 375 K/CU MM MPV 10.4 9.4 - 12.3 fL documented in this encounter Plan of Treatment Upcoming Encounters Date Type Department Care Team (Late st Contact Info) Description 01/27/2025 10:45 AM EDT Office Visit [facility] Electrophysiology [address] [place] [phone] Deysi Foss MD [address] [place] [address] [address] [place] [id number] Pending Results Name Type Priority Associated Diagnoses Date /Time Fungus Culture W/ROSA MARIA Or Nimisha Ink Microbiology Routine Melena 11/30/2024 4:03 PM EDT AFB Culture And Stain Microbiology Routine Melena 11/30/2024 4:03 PM EDT documented as of this encounter Procedures Procedure Name Priority Date/Time Associated Diagnosis Comments NOVA GLUCOSE POC Routine 12/14/2024 3:41 PM EDT NOVA GLUCOSE POC Routine 12/14/2024 10:2 9 AM EDT FS_MODEL_IP_ECG 12-LEAD Routine 12/14/2024 9:10 AM EDT NOVA GLUCOSE POC Routine 12/14/2024 4:24 AM EDT CBC W/ AUTO DIFF Routine 12/14/2024 2:54 AM EDT COMPREHENSIVE METABOLIC PANEL Routine 12/14/2024 2:54 AM EDT NOVA GLUCOSE POC Routine 12/13/2024 8:20 PM EDT NOVA GLUCOSE POC Routine 12/13/2024 4:24 PM EDT FS_MODEL_IP_ECG 12-LEAD Routine 12/13/2024 1:14 PM EDT NOVA GLUCOSE POC Routine 12/13/2024 1:07 PM EDT NOVA GLUCOSE POC Routine 12/13/2024 11:1 5 AM EDT NOVA GLUCOSE POC Routine 12/13/2024 5:46 AM EDT [facility] CBC SCAN Routine 12/13/2024 3:15 AM EDT CBC W/ AUTO DIFF Routine 12/13/2024 3:15 AM EDT HEPATIC FUNCTION PANEL Routine 12/13/2024 3:15 AM EDT BASIC METABOLIC PANEL Routine 12/13/2024 3:15 AM EDT NOVA GLUCOSE POC Routine 12/12/2024 8:01 PM EDT NOVA GLUCOSE POC Routine 12/12/2024 3:51 PM EDT NOVA GLUCOSE POC Routine 12/12/2024 10:3 1 AM EDT FS_MODEL_IP_ECG 12-LEAD Routine 12/12/2024 9:22 AM EDT NOVA GLUCOSE POC Routine 12/12/2024 5:43 AM EDT [facility] CBC SCAN Routine 12/12/2024 3:47 AM EDT CBC W/ AUTO DIFF Routine 12/12/2024 3:47 AM EDT BASIC METABOLIC PANEL Routine 12/12/2024 3:47 AM EDT NOVA GLUCOSE POC Routine 12/11/2024 7:32 PM EDT NOVA GLUCOSE POC Routine 12/11/2024 4:18 PM EDT NOVA GLUCOSE POC Routine 12/11/2024 10:4 3 AM EDT FS_MODEL_IP_ECG 12-LEAD Routine 12/11/2024 10:29 AM EDT NOVA GLUCOSE POC Routine 12/11/2024 5:15 AM EDT BASIC METABOLIC PANEL Routine 12/11/2024 3:39 AM EDT CBC W/ AUTO DIFF Routine 12/11/2024 3:36 AM EDT NOVA GLUCOSE POC Routine 12/10/2024 7:38 PM EDT NOVA GLUCOSE POC Routine 12/10/2024 6:32 PM EDT NOVA GLUCOSE POC Routine 12/10/2024 4:56 PM EDT US PARACENTESIS Routine 12/10/2024 11:37 AM EDT FS_MODEL_IP_ECG 12-LEAD Routine 12/10/2024 10:07 AM EDT ALT (SGPT) Routine 12/10/2024 9:53 AM EDT AST (SGOT) Routine 12/10/2024 9:53 AM EDT MAGNESIUM Routine 12/10/2024 9:53 AM EDT XR CHEST AP PORTABLE Routine 12/10/2024 9:10 AM EDT BLOOD GAS, ARTERIAL Routine 12/10/2024 6 :42 AM EDT NOVA GLUCOSE POC Routine 12/10/2024 5:52 AM EDT NOVA GLUCOSE POC Routine 12/09/2024 7:30 PM EDT NOVA GLUCOSE POC Routine 12/09/2024 4:23 PM EDT FS_MODEL_IP_ECG 12-LEAD Routine 12/09/2024 12:33 PM EDT NOVA GLUCOSE POC Routine 12/09/2024 11:1 7 AM EDT XR CHEST AP PORTABLE Routine 12/09/2024 7:09 AM EDT BLOOD GAS, ARTERIAL Routine 12/09/2024 6 :37 AM EDT NOVA GLUCOSE POC Routine 12/09/2024 5:45 AM EDT CBC HEMOGRAM (SJ-BKR) Routine 12/09/2024 3:38 AM EDT BASIC METABOLIC PANEL Routine 12/09/2024 3:38 AM EDT NOVA GLUCOSE POC Routine 12/08/2024 8:08 PM EDT NOVA GLUCOSE POC Routine 12/08/2024 3:34 PM EDT NOVA GLUCOSE POC Routine 12/08/2024 10:5 7 AM EDT FS_MODEL_IP_ECG 12-LEAD Routine 12/08/2024 10:55 AM EDT BLOOD GAS, ARTERIAL Routine 12/08/2024 7 :13 AM EDT NOVA GLUCOSE POC Routine 12/08/2024 6:08 AM EDT CBC HEMOGRAM (SJ-BKR) Routine 12/08/2024 4:10 AM EDT BASIC METABOLIC PANEL Routine 12/08/2024 4:10 AM EDT NOVA GLUCOSE POC Routine 12/07/2024 7:54 PM EDT BLOOD GAS, ARTERIAL Routine 12/07/2024 4 :21 PM EDT NOVA GLUCOSE POC Routine 12/07/2024 3:39 PM EDT XR CHEST AP PORTABLE STAT 12/07/2024 2:25 PM EDT BLOOD GAS, ARTERIAL STAT 12/07/2024 2 :02 PM EDT NOVA GLUCOSE POC Routine 12/07/2024 10:5 4 AM EDT BLOOD GAS, ARTERIAL Routine 12/07/2024 1 0:36 AM EDT FS_MODEL_IP_ECG 12-LEAD Routine 12/07/2024 10:29 AM EDT NOVA GLUCOSE POC Routine 12/07/2024 5:51 AM EDT CBC HEMOGRAM (SJ-BKR) Routine 12/07/2024 3:59 AM EDT ERYTHROPOIETIN(SENDOU T) Routine 12/07/2024 3:59 AM EDT MAGNESIUM Routine 12/07/2024 3:59 AM EDT AMMONIA Routine 12/07/2024 3:59 AM EDT COMPREHENSIVE METABOLIC PANEL Routine 12/07/2024 3:59 AM EDT NOVA GLUCOSE POC Routine 12/06/2024 7:26 PM EDT NOVA GLUCOSE POC Routine 12/06/2024 4:06 PM EDT FS_MODEL_IP_ECG 12-LEAD Routine 12/06/2024 1:16 PM EDT NOVA GLUCOSE POC Routine 12/06/2024 10:3 6 AM EDT XR CHEST AP PORTABLE Routine 12/06/2024 7:34 AM EDT NOVA GLUCOSE POC Routine 12/06/2024 5:26 AM EDT CBC HEMOGRAM (SJ-BKR) Routine 12/06/2024 3:13 AM EDT MAGNESIUM Routine 12/06/2024 3:13 AM EDT FERRITIN Add-On 12/06/2024 3:13 AM EDT AMMONIA Routine 12/06/2024 3:13 AM EDT COMPREHENSIVE METABOLIC PANEL Routine 12/06/2024 3:13 AM EDT NOVA GLUCOSE POC Routine 12/05/2024 7:2 1 PM EDT NOVA GLUCOSE POC Routine 12/05/2024 5:01 PM EDT HEMOGLOBIN Routine 12/05/2024 3:36 PM EDT NOVA GLUCOSE POC Routine 12/05/2024 10:2 3 AM EDT NOVA GLUCOSE POC Routine 12/05/2024 8:10 AM EDT HEMOGLOBIN Routine 12/05/2024 8:00 AM EDT CBC HEMOGRAM (SJ-BKR) Routine 12/05/2024 3:20 AM EDT MAGNESIUM Routine 12/05/2024 3:20 AM EDT AMMONIA Routine 12/05/2024 3:20 AM EDT COMPREHENSIVE METABOLIC PANEL Routine 12/05/2024 3:20 AM EDT HEMOGLOBIN Routine 12/04/2024 11:54 PM EDT NOVA GLUCOSE POC Routine 12/04/2024 10:2 0 PM EDT FS_MODEL_IP_ECG 12-LEAD Routine 12/04/2024 8:08 PM EDT NOVA GLUCOSE POC Routine 12/04/2024 4:50 PM EDT HEMOGLOBIN Routine 12/04/2024 4:27 PM EDT BASIC METABOLIC PANEL Add-On 12/04/2024 10:53 AM EDT NOVA GLUCOSE POC Routine 12/04/2024 10:5 2 AM EDT CBC W/ AUTO DIFF Add-On 12/04/2024 8:15 AM EDT ANCA VASCULITIS PROFILE(SENDOUT) Routine 12/04/2024 8:15 AM EDT JEANA REFLEXIVE PROFILE(SENDOUT) Routine 12/04/2024 8:15 AM EDT HEMOGLOBIN Routine 12/04/2024 8:15 AM EDT XR CHEST AP PORTABLE Routine 12/04/2024 6:49 AM EDT BLOOD GAS, ARTERIAL Routine 12/04/2024 6 :34 AM EDT NOVA GLUCOSE POC Routine 12/04/2024 6:13 AM EDT CBC W/ AUTO DIFF Routine 12/04/2024 3:35 AM EDT AMMONIA Routine 12/04/2024 3:35 AM EDT PHOSPHORUS Routine 12/04/2024 3:34 AM EDT MAGNESIUM Routine 12/04/2024 3:34 AM EDT COMPREHENSIVE METABOLIC PANEL Routine 12/04/2024 3:34 AM EDT FS_MODEL_IP_ECG 12-LEAD Routine 12/04/2024 3:25 AM EDT HEMOGLOBIN Routine 12/04/2024 1:04 AM EDT NOVA GLUCOSE POC Routine 12/03/2024 9:41 PM EDT NOVA GLUCOSE POC Routine 12/03/2024 5:19 PM EDT XR CHEST AP PORTABLE STAT 12/03/2024 4:45 PM EDT FS_MODEL_IP_ECG 12-LEAD STAT 12/03/2024 2:16 PM EDT NOVA GLUCOSE POC Routine 12/03/2024 10:4 5 AM EDT FS_MODEL_IP_ECG 12-LEAD Routine 12/03/2024 10:39 AM EDT CBC W/ AUTO DIFF Routine 12/03/2024 8:31 AM EDT MAGNESIUM Routine 12/03/2024 7:39 AM EDT CREATINE KINASE (CK) Routine 12/03/2024 7:39 AM EDT AMMONIA Routine 12/03/2024 7:39 AM EDT COMPREHENSIVE METABOLIC PANEL Routine 12/03/2024 7:39 AM EDT NOVA GLUCOSE POC Routine 12/03/2024 5:13 AM EDT NOVA GLUCOSE POC Routine 12/03/2024 1:12 AM EDT NOVA GLUCOSE POC Routine 12/03/2024 1:10 AM EDT HEMOGLOBIN Routine 12/02/2024 11:06 PM EDT NOVA GLUCOSE POC Routine 12/02/2024 8:06 PM EDT HEMOGLOBIN Routine 12/02/2024 6:03 PM EDT NOVA GLUCOSE POC Routine 12/02/2024 5:18 PM EDT FS_MODEL_IP_TRANSFUSE RED BLOOD CELLS Routine 12/02/2024 1:23 PM EDT NOVA GLUCOSE POC Routine 12/02/2024 12:[address] BONE MARROW BIOPSY Routine 12/02/2024 12:24 PM EDT BONE MARROW SMEAR, ASPIRATION, AND STAIN AP Routine 12/02/2024 12:06 PM EDT Melena FS_MODEL_IP_PREPARE RBC Routine 12/02/2024 9:36 AM EDT HEMOGLOBIN AND HEMATOCRIT Add-On 12/02/2024 7:40 AM EDT HEMOGLOBIN Routine 12/02/2024 7:40 AM EDT NOVA GLUCOSE POC Routine 12/02/2024 5:04 AM EDT CBC HEMOGRAM (SJ-BKR) Routine 12/02/2024 3:38 AM EDT MAGNESIUM Routine 12/02/2024 3:38 AM EDT AMMONIA Routine 12/02/2024 3:38 AM EDT COMPREHENSIVE METABOLIC PANEL Routine 12/02/2024 3:38 AM EDT HEMOGLOBIN Routine 12/02/2024 12:04 AM EDT NOVA GLUCOSE POC Routine 12/01/2024 7:34 PM EDT NOVA GLUCOSE POC Routine 12/01/2024 4:25 PM EDT HEMOGLOBIN Routine 12/01/2024 3:33 PM EDT NOVA GLUCOSE POC Routine 12/01/2024 10:3 2 AM EDT MI EGD FLEXIBLE FOREIGN BODY REMOVAL 12/01/2024 8:55 AM EDT Melena FS_MODEL_IP_TRANSFUSE RED BLOOD CELLS Routine 12/01/2024 8:36 AM EDT NOVA GLUCOSE POC Routine 12/01/2024 8:12 AM EDT TYPE AND SCREEN ([place] BKR) Routine 12/01/2024 7:08 AM EDT NOVA GLUCOSE POC Routine 12/01/2024 5:37 AM EDT FS_MODEL_IP_PREPARE RBC Routine 12/01/2024 4:53 AM EDT CBC HEMOGRAM (SJ-BKR) Routine 12/01/2024 4:06 AM EDT ABO/RH CONFIRMATION/RETYPE ([place] BKR) Routine 12/01/2024 4:06 AM EDT AMMONIA Routine 12/01/2024 4:06 AM EDT MAGNESIUM Routine 12/01/2024 4:05 AM EDT COMPREHENSIVE METABOLIC PANEL Routine 12/01/2024 4:05 AM EDT NOVA GLUCOSE POC Routine 11/30/2024 7:38 PM EDT NOVA GLUCOSE POC Routine 11/30/2024 6:22 PM EDT US RENAL LIMITED Routine 11/30/2024 4:19 PM EDT US LIVER Routine 11/30/2024 4:19 PM EDT US PARACENTESIS Routine 11/30/2024 4:17 PM EDT [facility] DIFFERENTIAL, BODY FLUID Routine 11/30/2024 4:03 PM EDT Melena CYTOLOGY ([facility]) AP Routine 11/30/2024 4:03 PM EDT Melena AFB CULTURE AND STAIN Routine 11/30/2024 4:03 PM EDT Melena BODY FLUID/CSF- PATH REVIEW LAB ONLY (SJ-BKR) Routine 11/30/2024 4:03 PM EDT Melena FUNGUS CULTURE W/ROSA MARIA OR NIMISHA INK Routine 11/30/2024 4:03 PM EDT Melena GLUCOSE, BODY FLUID Routine 11/30/2024 4 :03 PM EDT ANAEROBIC CULTURE Routine 11/30/2024 4:0 3 PM EDT Melena BODY FLUID CULTURE + GRAM STAIN Routine 11/30/2024 4:03 PM EDT Melena BODY FLUID CELL COUNT WITH DIFFERENTIAL Routine 11/30/2024 4:03 PM EDT Melena PROTEIN, BODY FLUID Routine 11/30/2024 4 :03 PM EDT LACTATE DEHYDROGENASE (LDH), BODY FLUID Routine 11/30/2024 4:03 PM EDT Melena URINALYSIS, REFLEX MICROSCOPIC AND CULTURE IF INDICATED Routine 11/30/2024 11:35 AM EDT URINALYSIS MICROSCOPIC Routine 11/30/2024 11:35 AM EDT UREA NITROGEN, RANDOM URINE Add-On 11/30/2024 11:35 AM EDT PROTEIN / CREATININE RATIO, URINE Add-On 11/30/2024 11:35 AM EDT SODIUM, RANDOM URINE Add-On 11/30/2024 11:35 AM EDT URINE CULTURE Routine 11/30/2024 11:35 AM EDT XR CHEST AP PORTABLE Routine 11/30/2024 11:29 AM EDT MONOCLONAL PROTEIN STUDY, EXPANDED PANEL(SENDOUT) Routine 11/30/2024 11:01 AM EDT ALPHA FETOPROTEIN TUMOR MARKER(SENDOUT) Routine 11/30/2024 11:01 AM EDT NOVA GLUCOSE POC Routine 11/30/2024 10:4 6 AM EDT VITAMIN D, 25-HYDROXY Routine 11/30/2024 8:20 AM EDT HEMOGLOBIN A1C Routine 11/30/2024 8:20 AM EDT ECHO COMPLETE (DOPPLER / COLOR) WO CONTRAST Routine 11/30/2024 7:50 AM EDT NOVA GLUCOSE POC Routine 11/30/2024 5:13 AM EDT BLOOD CULTURE STAT 11/30/2024 3:42 AM EDT CBC HEMOGRAM (SJ-BKR) Routine 11/30/2024 3:40 AM EDT LACTIC ACID WITH REFLEX STAT 11/30/2024 3:40 AM EDT PROCALCITONIN STAT 11/30/2024 3:40 AM EDT IRON AND TIBC Add-On 11/30/2024 3:40 AM EDT BLOOD CULTURE STAT 11/30/2024 3:40 AM EDT APTT STAT 11/30/2024 3:40 AM EDT PROTHROMBIN TIME/INR STAT 11/30/2024 3:40 AM EDT URIC ACID Add-On 11/30/2024 3:40 AM EDT MAGNESIUM STAT 11/30/2024 3:40 AM EDT LACTATE DEHYDROGENASE (LDH) Add-On 11/30/2024 3:40 AM EDT IRON, SERUM Add-On 11/30/2024 3:40 AM EDT FOLATE, SERUM Add-On 11/30/2024 3:40 AM EDT FERRITIN Add-On 11/30/2024 3:40 AM EDT VITAMIN B12 Add-On 11/30/2024 3:40 AM EDT CREATINE KINASE (CK) Add-On 11/30/2024 3:40 AM EDT AMMONIA STAT 11/30/2024 3:40 AM EDT COMPREHENSIVE METABOLIC PANEL Routine 11/30/2024 3:40 AM EDT EKG-SCANNED 11/30/2024 EKG-SCANNED 11/30/2024 EKG-SCANNED 11/30/2024 documented in this encounter Results * (ABNORMAL) Glucose, Nova Meter (12/14/2024 3:41 PM EDT) POC-GLUCOSE 203(H) 70 - 110 mg/dL 12/14/2024 3:42 PM EDT [facility] Comment: In the event of poor peripheral blood flow, venous or arterial blood should be used due to the potential of erroneous results. Notified Nurse RBV Laboratory Scientist [id number] 12/14/2024 3:42 PM EDT [facility] Blood WHOLE BLOOD / Unknown 12/14/2024 3:41 PM EDT 12/14/2024 3:42 PM EDT Narrative [facility] - 12/14/2024 3:42 PM EDT Laboratory Scientist ID is - [id number] us David Coffman PA-C POINT OF CARE TEST ORDERABLES Final Result [facility] [address] [phone] * (ABNORMAL) Glucose, Nova Meter (12/14/2024 10:29 AM EDT) POC-GLUCOSE 215(H) 70 - 110 mg/dL 12/14/2024 10:30 AM EDT [facility] Comment: In the event of poor peripheral blood flow, venous or arterial blood should be used due to the potential of erroneous results. Notified Nurse RBV Laboratory Scientist [id number] 12/14/2024 10:30 AM EDT [facility] Blood WHOLE BLOOD / Unknown 12/14/2024 10:29 AM EDT 12/14/2024 10:30 AM EDT Narrative [facility] - 12/14/2024 10:30 AM EDT Laboratory Scientist ID is - [id number] us David Coffman PA-C POINT OF CARE TEST ORDERABLES Final Result Performing Organization Address City/[facility] Co de Phone Number [facility] [address] [phone] * ECG 12 lead (12/14/2024 9:10 AM EDT) VENTRICULAR RATE EKG/MIN 89 BPM GE MUSE ATRIAL RATE (MCT) 89 BPM GE MUSE MI Interval 146 ms GE MUSE QRS-INTERVAL (MSEC) 86 ms GE MUSE QT Interval 432 ms GE MUSE QTC Interval 525 ms GE MUSE P [place] 34 degrees GE MUSE R AXIS (MCT) -13 degrees GE MUSE T Wave [place] -2 degrees GE MUSE Bryan Diagnosis Normal sinus rhythm Septal infarct (cited on or before 14-DEC-2024 ) Confirmed by DEYSI FOSS M.D. ([id number]) on 12/14/2024 5:07:26 PM GE MUSE 12/14/2024 9:10 AM EDT 12/14/2024 5:07 PM EDT Deysi Foss MD ECG ORDERABLES Final Result Performing Organization Address City/[facility]/ZIP Co de Phone Number GE MUSE * (ABNORMAL) Glucose, Nova Meter (12/14/2024 4:24 AM EDT) POC-GLUCOSE 140(H) 70 - 110 mg/dL 12/14/2024 4:26 AM EDT [facility] Comment: In the event of poor peripheral blood flow, venous or arterial blood should be used due to the potential of erroneous results. Protocols Followed Laboratory Scientist [id number] 12/14/2024 4:26 AM EDT [facility] Blood WHOLE BLOOD / Unknown 12/14/2024 4:24 AM EDT 12/14/2024 4:26 AM EDT Narrative [facility] - 12/14/2024 4:26 AM EDT Laboratory Scientist ID is - [id number] David Coffman PA-C POINT OF CARE TEST ORDERABLES Final Result Performing Organization Address City/State/[facility] Co de Phone Number [facility] [address] [phone] * (ABNORMAL) Comprehensive metabolic panel (12/14/2024 2:54 AM EDT) Sodium 145 136 - 145 meq/L 12/14/2024 4:13 AM EDT [facility] Potassium 3.5 3.4 - 5.1 meq/L 12/14/2024 4:13 AM EDT [facility] Chloride 109 98 - 112 meq/L 12/14/2024 4:13 AM EDT [facility] CO2 27 22 - 29 meq/L 12/14/2024 4:13 AM EDT [facility] Calcium 8.6 8.4 - 10.2 mg/dL 12/14/2024 4:13 AM EDT [facility] Glucose 146(H) 82 - 115 mg/dL 12/14/2024 4:13 AM EDT [facility] BUN 67.7(H) 9.8 - 20.1 mg/dL 12/14/2024 4:13 AM EDT [facility] Creatinine 2.22(H) 0.57 - 1.11 mg/dL 12/14/2024 4:13 AM EDT [facility] BUN/Creatinine 30(H) 8 - 20 12/14/2024 4:13 AM EDT [facility] eGFR (mL/min/1.73m2) 25(L) >=60 mL/min/1. 73m2 12/14/2024 4:13 AM EDT [facility] Albumin 3.2(L) 3.5 - 5.0 g/dL 12/14/2024 4:13 AM EDT [facility] Alkaline Phosphatase 56 40 - 150 U/L 12/14/2024 4:13 AM EDT [facility] ALT 21 <=34 U/L 12/14/2024 4:13 AM EDT [facility] Comment: ALT2 reagent used for testing does not contain P5P supplementation and therefore may miss ALT elevations in patients with B6 deficiency. This population may be as high as 10% in the [place], with risk factors including malabsorption, drug interactions, and alcoholic hepatitis. AST 52(H) 11 - 34 U/L 12/14/2024 4:13 AM EDT [facility] Comment: AST2 reagent used for testing does not contain P5P supplementation and therefore may miss AST elevations in patients with B6 deficiency. This population may be as high as 10% in the [place], with risk factors including malabsorption, drug interactions, and alcoholic hepatitis. Total Bilirubin 0.9 0.2 - 1.2 mg/dL 12/14/2024 4:13 AM EDT [facility] Protein, Total 5.9(L) 6.4 - 8.3 g/dL 12/14/2024 4:13 AM EDT [facility] Globulin 2.7 2.5 - 4.1 g/dL 12/14/2024 4:13 AM EDT [facility] Anion Gap 13(H) 4 - 12 12/14/2024 4:13 AM EDT [facility] A/G Ratio 1.2 0.7 - 1.9 12/14/2024 4:13 AM EDT [facility] Osmolality Calc 311.0 mOsm/kg 4:13 AM EDT [facility] Blood Venipuncture / Unknown 12/14/2024 2:54 AM EDT 12/14/2024 3:26 AM EDT David Coffman PA-C LAB BLOOD ORDERABLES Final Re sult [facility] [address] [phone] * (ABNORMAL) CBC with automated diff (12/14/2024 2:54 AM EDT) WBC 1.4(LL) 4.0 - 10.0 K/ L 12/14/2024 3:45 AM EDT [facility] RBC 2.45(L) 3.93 - 5.22 M/ L 12/14/2024 3:45 AM EDT [facility] Hemoglobin 7.6(L) 11.2 - 15.7 GM/DL 12/14/2024 3:45 AM EDT [facility] Hematocrit 24.1(L) 34.1 - 44.9 % 12/14/2024 3:45 AM EDT [facility] MCV 98(H) 79 - 95 fL 12/14/2024 3:45 AM EDT [facility] MCH 31.0 25.6 - 32.2 pg 12/14/2024 3:45 AM EDT [facility] MCHC 31.5(L) 32.2 - 35.5 GM/DL 12/14/2024 3:45 AM EDT [facility] RDW 16.3(H) 11.7 - 14.4 % 12/14/2024 3:45 AM EDT [facility] Platelets 51(L) 140 - 375 K/CU MM 12/14/2024 3:45 AM EDT [facility] MPV 12.3 9.4 - 12.3 fL 12/14/2024 3:45 AM EDT [facility] % Neutros 54 34 - 71 % 12/14/2024 3:45 AM EDT [facility] % Lymphs 32 19 - 52 % 12/14/2024 3:45 AM EDT [facility] % Monos 14(H) 5 - 13 % 12/14/2024 3:45 AM EDT [facility] % Eos 0(L) 1 - 6 % 12/14/2024 3:45 AM EDT [facility] % Baso 1 0 - 1 % 12/14/2024 3:45 AM EDT [facility] NRBC Absolute <0.01 0 - 0.012 K/ul 12/14/2024 3:45 AM EDT [facility] # Neutros 0.76(L) 1.56 - 6.13 K/ L 12/14/2024 3:45 AM EDT [facility] # Lymphs 0.45(L) 1.18 - 3.74 K/ L 12/14/2024 3:45 AM EDT [facility] # Monos 0.19(L) 0.24 - 0.86 K/ L 12/14/2024 3:45 AM EDT [facility] [facility] # Eos <0.03(L) 0.04 - 0.36 K/ L 12/14/2024 3:45 AM EDT [facility] # Baso <0.03 0.01 - 0.08 K/ L 12/14/2024 3:45 AM EDT [facility] Immature Granulocytes-Re lative 0.00(L) 0.01 - 0.43 % 12/14/2024 3:45 AM EDT [facility] # IG <0.03 0.00 - 0.03 K/uL 12/14/2024 3:45 AM EDT [facility] Blood Venipuncture / Unknown 12/14/2024 2:54 AM EDT 12/14/2024 3:27 AM EDT Narrative [facility] - 12/14/2024 3:45 AM EDT When CBC w/ Auto Diff is ordered the lab will add a Manual Differential as a quality check at no additional charge if: Lymphocytes greater than seventy five percent with normal or increased WBC Monocytes greater than Fifteen percent Basophil greater than four percent Bands >10% or several immature myeloids are seen on scan Blast? Flag noted Atypical Lymph flag noted David Coffman PA-C LAB BLOOD ORDERABLES Final Re sult [facility] [address] [phone] * (ABNORMAL) Glucose, Nova Meter (12/13/2024 8:20 PM EDT) POC-GLUCOSE 186(H) 70 - 110 mg/dL 12/13/2024 8:21 PM EDT [facility] Comment: In the event of poor peripheral blood flow, venous or arterial blood should be used due to the potential of erroneous results. Protocols Followed Laboratory Scientist [id number] 12/13/2024 8:21 PM EDT [facility] Blood WHOLE BLOOD / Unknown 12/13/2024 8:20 PM EDT 12/13/2024 8:21 PM EDT Narrative [facility] - 12/13/2024 8:21 PM EDT Laboratory Scientist ID is - [id number] [facility] Andry Meghna PA-C POINT OF CARE TEST ORDERABLES Final Result Performing Organization Address City/[facility]/ZIP Co de Phone Number [facility] [address] [phone] * (ABNORMAL) Glucose, Nova Meter (12/13/2024 4:24 PM EDT) Pathologist [facility] POC-GLUCOSE 156(H) 70 - 110 mg/dL 12/13/2024 4:25 PM EDT [facility] Comment: In the event of poor peripheral blood flow, venous or arterial blood should be used due to the potential of erroneous results. Notified Nurse RBV Laboratory Scientist [id number] 12/13/2024 4:25 PM EDT [facility] Blood WHOLE BLOOD / Unknown 12/13/2024 4:24 PM EDT 12/13/2024 4:25 PM EDT Narrative [facility] - 12/13/2024 4:25 PM EDT Laboratory Scientist ID is - [id number] [facility] Andry Coffman PA-C POINT OF CARE TEST ORDERABLES Final Result [facility] [address] [phone] * ECG 12 lead (12/13/2024 1:14 PM EDT) VENTRICULAR RATE EKG/MIN 86 BPM GE MUSE ATRIAL RATE (MCT) 86 BPM GE MUSE MI Interval 144 ms GE MUSE QRS-INTERVAL (MSEC) 86 ms GE MUSE QT Interval 384 ms GE MUSE QTC Interval 459 ms GE MUSE P [place] 46 degrees GE MUSE R AXIS (MCT) -4 degrees GE MUSE T Wave [place] 43 degrees GE MUSE Bryan Diagnosis Normal sinus rhythm Poor R wave progression Confirmed by Aleksandr ROBIN STEVE ([id number]) on 12/14/2024 1:01:45 AM GE MUSE 12/13/2024 1:14 PM EDT 12/14/2024 1:01 AM EDT Deysi Foss MD ECG ORDERABLES Final Result Performing Organization Address [facility] Co de Phone Number GE MUSE * (ABNORMAL) Glucose, Nova Meter (12/13/2024 1:07 PM EDT) POC-GLUCOSE 235(H) 70 - 110 mg/dL 12/15/2024 12:32 AM EDT [facility] Comment:In the event of poor peripheral blood flow, venous or arterial blood should be used due to the potential of erroneous results. Laboratory Scientist [id number] 12/15/2024 12:32 AM EDT [facility] Blood WHOLE BLOOD / Unknown 12/13/2024 1:07 PM EDT 12/15/2024 12:32 AM EDT Narrative [facility] - 12/15/2024 12:32 AM EDT Laboratory Scientist ID is - [id number] David Coffman PA-C POINT OF CARE TEST ORDERABLES Final Result Performing Organization Address [facility] Co de Phone Number [facility] [address] [phone] * (ABNORMAL) Glucose, Nova Meter (12/13/2024 11:15 AM EDT) POC-GLUCOSE 221(H) 70 - 110 mg/dL 12/13/2024 11:17 AM EDT [facility] Comment:In the event of poor peripheral blood flow, venous or arterial blood should be used due to the potential of erroneous results. Laboratory Scientist [id number] 12/13/2024 11:17 AM EDT [facility] Blood WHOLE BLOOD / Unknown 12/13/2024 11:15 AM EDT 12/13/2024 11:17 AM EDT Narrative [facility] - 12/13/2024 11:17 AM EDT Laboratory Scientist ID is - [id number] [facility] Andry Meghna PA-C POINT OF CARE TEST ORDERABLES Final Result Performing Organization Address [facility] de Phone Number [facility] [address] [phone] * (ABNORMAL) Glucose, Nova Meter (12/13/2024 5:46 AM EDT) POC-GLUCOSE 127(H) 70 - 110 mg/dL 12/13/2024 5:48 AM EDT [facility] Comment: In the event of poor peripheral blood flow, venous or arterial blood should be used due to the potential of erroneous results. Protocols Followed Notified Nurse RBV Laboratory Scientist [id number] 12/13/2024 5:48 AM EDT [facility] Blood WHOLE BLOOD / Unknown 12/13/2024 5:46 AM EDT 12/13/2024 5:48 AM EDT Narrative [facility] - 12/13/2024 5:48 AM EDT Laboratory Scientist ID is - [id number] [facility] Andry VALDIVIA-C POINT OF CARE TEST ORDERABLES Final Result Performing Organization Address [facility] de Phone Number [facility] [address] [phone] * (ABNORMAL) CBC Scan (12/13/2024 3:15 AM EDT) Platelet Estimate Decreased (A) Adequate 12/13/2024 4:55 AM EDT [facility] RBC Morphology abnormal( A) Normal 12/13/2024 4:55 AM EDT [facility] Anisocytosis 1+ 12/13/2024 4:55 AM EDT [facility] Hypochromia 1+ 12/13/2024 4:55 AM EDT [facility] Ovalocytes 1+ 12/13/2024 4:55 AM EDT [facility] Blood Venipuncture / Unknown 12/13/2024 3:15 AM EDT 12/13/2024 3:27 AM EDT us Venkatesh Stephen MD LAB BLOOD ORDERABLES Final Resul t [facility] [address] [phone] * (ABNORMAL) Hepatic function panel (12/13/2024 3:15 AM EDT) Protein, Total 5.7(L) 6.4 - 8.3 g/dL 12/13/2024 4:13 AM EDT [facility] Albumin 3.1(L) 3.5 - 5.0 g/dL 12/13/2024 4:13 AM EDT [facility] Total Bilirubin 0.8 0.2 - 1.2 mg/dL 12/13/2024 4:13 AM EDT [facility] Bilirubin, Direct 0.4 0.0 - 0.5 mg/dL 12/13/2024 4:13 AM T [facility] Alkaline Phosphatase 53 40 - 150 U/L 12/13/2024 4:13 AM EDT [facility] Globulin 2.6 2.5 - 4.1 g/dL 12/13/2024 4:13 AM EDT [facility] A/G Ratio 1.2 0.7 - 1.9 12/13/2024 4:13 AM EDT [facility] AST 42(H) 11 - 34 U/L 12/13/2024 4:13 AM EDT [facility] Comment: AST2 reagent used for testing does not contain P5P supplementation and therefore may miss AST elevations in patients with B6 deficiency. This population may be as high as 10% in the [place], with risk factors including malabsorption, drug interactions, and alcoholic hepatitis. ALT 16 <=34 U/L 12/13/2024 4:13 AM EDT [facility] Comment: ALT2 reagent used for testing does not contain P5P supplementation and therefore may miss ALT elevations in patients with B6 deficiency. This population may be as high as 10% in the [place], with risk factors including malabsorption, drug interactions, and alcoholic hepatitis. Blood Venipuncture / Unknown 12/13/2024 3:15 AM EDT 12/13/2024 3:39 AM EDT us Norm Cameron MD LAB BLOOD ORDERABLES Final Resu lt [facility] [address] [phone] * (ABNORMAL) CBC with automated diff (12/13/2024 3:15 AM EDT) WBC 1.4(LL) 4.0 - 10.0 K/ L 12/13/2024 3:40 AM EDT [facility] RBC 2.42(L) 3.93 - 5.22 M/ L 12/13/2024 3:40 AM EDT [facility] Hemoglobin 7.4(L) 11.2 - 15.7 GM/DL 12/13/2024 3:40 AM EDT [facility] Hematocrit 23.4(L) 34.1 - 44.9 % 12/13/2024 3:40 AM EDT [facility] MCV 97(H) 79 - 95 fL 12/13/2024 3:40 AM EDT [facility] MCH 30.6 25.6 - 32.2 pg 12/13/2024 3:40 AM EDT [facility] MCHC 31.6(L) 32.2 - 35.5 GM/DL 12/13/2024 3:40 AM EDT [facility] RDW 16.4(H) 11.7 - 14.4 % 12/13/2024 3:40 AM EDT [facility] Platelets 52(L) 140 - 375 K/CU MM 12/13/2024 3:40 AM EDT [facility] MPV 12.1 9.4 - 12.3 fL 12/13/2024 3:40 AM EDT [facility] % Neutros 56 34 - 71 % 12/13/2024 3:40 AM EDT [facility] % Lymphs 28 19 - 52 % 12/13/2024 3:40 AM EDT [facility] % Monos 15(H) 5 - 13 % 12/13/2024 3:40 AM EDT [facility] % Eos 0(L) 1 - 6 % 12/13/2024 3:40 AM EDT [facility] % Baso 1 0 - 1 % 12/13/2024 3:40 AM EDT [facility] NRBC Absolute <0.01 0 - 0.012 K/ul 12/13/2024 3:40 AM EDT [facility] # Neutros 0.80(L) 1.56 - 6.13 K/ L 12/13/2024 3:40 AM EDT [facility] # Lymphs 0.40(L) 1.18 - 3.74 K/ L 12/13/2024 3:40 AM EDT [facility] # Monos 0.21(L) 0.24 - 0.86 K/ L 12/13/2024 3:40 AM EDT [facility] # Eos <0.03(L) 0.04 - 0.36 K/ L 12/13/2024 3:40 AM EDT [facility] # Baso <0.03 0.01 - 0.08 K/ L 12/13/2024 3:40 AM EDT [facility] Immature Granulocytes-Re lative 0.00(L) 0.01 - 0.43 % 12/13/2024 3:40 AM EDT [facility] # IG <0.03 0.00 - 0.03 K/uL 12/13/2024 3:40 AM EDT [facility] Blood Venipuncture / Unknown 12/13/2024 3:15 AM EDT 12/13/2024 3:27 AM EDT [facility] - 12/13/2024 3:40 AM EDT When CBC w/ Auto Diff is ordered the lab will add a Manual Differential as a quality check at no additional charge if: Lymphocytes greater than seventy five percent with normal or increased WBC Monocytes greater than Fifteen percent Basophil greater than four percent Bands >10% or several immature myeloids are seen on scan Blast? Flag noted Atypical Lymph flag noted us Venkatesh Stephen MD LAB BLOOD ORDERABLES Final Resul t [facility] [address] [place] [address], [facility] [phone] * (ABNORMAL) Basic Metabolic Panel (12/13/2024 3:15 AM EDT) Sodium 147(H) 136 - 145 meq/L 12/13/2024 4:13 AM EDT [facility] Potassium 3.5 3.4 - 5.1 meq/L 12/13/2024 4:13 AM EDT [facility] CO2 27 22 - 29 meq/L 12/13/2024 4:13 AM EDT [facility] Chloride 110 98 - 112 meq/L 12/13/2024 4:13 AM EDT [facility] Glucose 135(H) 82 - 115 mg/dL 12/13/2024 4:13 AM EDT [facility] BUN 71.9(H) 9.8 - 20.1 mg/dL 12/13/2024 4:13 AM EDT [facility] Creatinine 2.29(H) 0.57 - 1.11 mg/dL 12/13/2024 4:13 AM EDT [facility] BUN/Creatinine 31(H) 8 - 20 12/13/2024 4:13 AM EDT [facility] Calcium 8.5 8.4 - 10.2 mg/dL 12/13/2024 4:13 AM EDT [facility] Anion Gap 14(H) 4 - 12 12/13/2024 4:13 AM EDT [facility] eGFR (mL/min/1.73m2) 24(L) >=60 mL/min/1.7 3m2 12/13/2024 4:13 AM EDT [facility] Osmolality Calc 315.6 mOsm/kg 4:13 AM EDT [facility] Blood Venipuncture / Unknown 12/13/2024 3:15 AM EDT 12/13/2024 3:39 AM EDT Venkatesh Stephen MD LAB BLOOD ORDERABLES Final Resul t Performing Organization Address [facility] Co de Phone Number [facility] [address] [phone] * (ABNORMAL) Glucose, Nova Meter (12/12/2024 8:01 PM EDT) POC-GLUCOSE 182(H) 70 - 110 mg/dL 12/12/2024 8:02 PM EDT [facility] Comment: In the event of poor peripheral blood flow, venous or arterial blood should be used due to the potential of erroneous results. Protocols Followed Notified Nurse RBV Laboratory Scientist [id number] 12/12/2024 8:02 PM EDT [facility] Blood WHOLE BLOOD / Unknown 12/12/2024 8:01 PM EDT 12/12/2024 8:02 PM EDT Narrative [facility] - 12/12/2024 8:02 PM EDT Laboratory Scientist ID is - [id number] David Coffman PA-C POINT OF CARE TEST ORDERABLES Final Result Performing Organization Address [facility] Co al Phone Number [facility] [address] [place] [address], [facility] [phone] * (ABNORMAL) Glucose, Nova Meter (12/12/2024 3:51 PM EDT) POC-GLUCOSE 163(H) 70 - 110 mg/dL 12/12/2024 3:52 PM EDT [facility] Comment: In the event of poor peripheral blood flow, venous or arterial blood should be used due to the potential of erroneous results. Notified Nurse RBV Laboratory Scientist [id number] 12/12/2024 3:52 PM EDT [facility] Blood WHOLE BLOOD / Unknown 12/12/2024 3:51 PM EDT 12/12/2024 3:52 PM EDT Narrative [facility] - 12/12/2024 3:52 PM EDT Laboratory Scientist ID is - [id number] David Coffman PA-C POINT OF CARE TEST ORDERABLES Final Result Performing Organization Address [facility] de Phone Number [facility] [address] [phone] * (ABNORMAL) Glucose, Nova Meter (12/12/2024 10:31 AM EDT) [facility] POC-GLUCOSE 221(H) 70 - 110 mg/dL 12/12/2024 10:32 AM EDT [facility] Comment: In the event of poor peripheral blood flow, venous or arterial blood should be used due to the potential of erroneous results. Notified Nurse RBV Laboratory Scientist [id number] 12/12/2024 10:32 AM EDT [facility] Blood WHOLE BLOOD / Unknown 12/12/2024 10:31 AM EDT 12/12/2024 10:32 AM EDT [facility] - 12/12/2024 10:32 AM EDT Laboratory Scientist ID is - [id number] David Coffman PA-C POINT OF CARE TEST ORDERABLES Final Result Performing Organization Address [facility] de Phone Number [facility] [address] [phone] * ECG 12 lead (12/12/2024 9:22 AM EDT) [facility] VENTRICULAR RATE EKG/MIN 87 BPM GE MUSE ATRIAL RATE (MCT) 87 BPM GE MUSE MI Interval 140 ms GE MUSE QRS-INTERVAL (MSEC) 90 ms GE MUSE QT Interval 414 ms GE MUSE QTC Interval 498 ms GE MUSE P [place] 26 degrees GE MUSE R AXIS (MCT) -17 degrees GE MUSE T Wave [place] 24 degrees GE MUSE Bryan Diagnosis Normal sinus rhythm Leftward axis When compared with ECG of 11-DEC-2024 10:29, No significant change was found Confirmed by Aleksandr ROBIN STEVE ([id number]) on 12/12/2024 11:05:42 PM GE MUSE 12/12/2024 9:22 AM EDT 12/12/2024 11:05 PM EDT Deysi Foss MD ECG ORDERABLES Final Result Performing Organization Address City/[facility]/ZIP Co de Phone Number GE MUSE * (ABNORMAL) Glucose, Nova Meter (12/12/2024 5:43 AM EDT) POC-GLUCOSE 149(H) 70 - 110 mg/dL 12/12/2024 5:44 AM EDT [facility] Comment: In the event of poor peripheral blood flow, venous or arterial blood should be used due to the potential of erroneous results. Notified Nurse RBV Laboratory Scientist [id number] 12/12/2024 5:44 AM EDT [facility] Blood WHOLE BLOOD / Unknown 12/12/2024 5:43 AM EDT 12/12/2024 5:44 AM EDT Narrative [facility] - 12/12/2024 5:44 AM EDT Laboratory Scientist ID is - [id number] us David Coffman PA-C POINT OF CARE TEST ORDERABLES Final Result Performing Organization Address [facility] Co de Phone Number [facility] [address] [place] [address] * (ABNORMAL) CBC Scan (12/12/2024 3:47 AM EDT) Platelet Estimate Decreased (A) Adequate 12/12/2024 6:07 AM EDT [facility] RBC Morphology abnormal( A) Normal 12/12/2024 6:07 AM EDT [facility] Anisocytosis 1+ 12/12/2024 6:07 AM EDT [facility] Hypochromia 1+ 12/12/2024 6:07 AM EDT [facility] Macrocytes 1+ 12/12/2024 6:07 AM EDT [facility] Ovalocytes 1+ 12/12/2024 6:07 AM EDT [facility] Poikilocytes 1+ 12/12/2024 6:07 AM EDT [facility] Blood Venipuncture / Unknown 12/12/2024 3:47 AM EDT 12/12/2024 4:40 AM EDT us Venkatesh Stephen MD LAB BLOOD ORDERABLES Final Resul t [facility] [address] [phone] * (ABNORMAL) CBC with automated diff (12/12/2024 3:47 AM EDT) WBC 1.4(LL) 4.0 - 10.0 K/ L 12/12/2024 6:07 AM EDT [facility] RBC 2.39(L) 3.93 - 5.22 M/ L 12/12/2024 6:07 AM EDT [facility] Hemoglobin 7.3(L) 11.2 - 15.7 GM/DL 12/12/2024 6:07 AM EDT [facility] Hematocrit 23.2(L) 34.1 - 44.9 % 12/12/2024 6:07 AM EDT [facility] MCV 97(H) 79 - 95 fL 12/12/2024 6:07 AM EDT [facility] MCH 30.5 25.6 - 32.2 pg 12/12/2024 6:07 AM EDT [facility] MCHC 31.5(L) 32.2 - 35.5 GM/DL 12/12/2024 6:07 AM EDT [facility] RDW 16.7(H) 11.7 - 14.4 % 12/12/2024 6:07 AM EDT [facility] Platelets 43(L) 140 - 375 K/CU MM 12/12/2024 6:07 AM EDT [facility] MPV 11.8 9.4 - 12.3 fL 12/12/2024 6:07 AM EDT [facility] % Neutros 57 34 - 71 % 12/12/2024 6:07 AM EDT [facility] % Lymphs 29 19 - 52 % 12/12/2024 6:07 AM EDT [facility] % Monos 13 5 - 13 % 12/12/2024 6:07 AM EDT [facility] % Eos 1 1 - 6 % 12/12/2024 6:07 AM EDT [facility] % Baso 0 0 - 1 % 12/12/2024 6:07 AM EDT [facility] NRBC Absolute <0.01 0 - 0.012 K/ul 12/12/2024 6:07 AM EDT [facility] # Neutros 0.80(L) 1.56 - 6.13 K/ L 12/12/2024 6:07 AM EDT [facility] # Lymphs 0.41(L) 1.18 - 3.74 K/ L 12/12/2024 6:07 AM EDT [facility] # Monos 0.18(L) 0.24 - 0.86 K/ L 12/12/2024 6:07 AM EDT [facility] # Eos <0.03(L) 0.04 - 0.36 K/ L 12/12/2024 6:07 AM EDT [facility] # Baso <0.03 0.01 - 0.08 K/ L 12/12/2024 6:07 AM EDT [facility] Immature Granulocytes-Re lative 0.70(H) 0.01 - 0.43 % 12/12/2024 6:07 AM EDT [facility] # IG <0.03 0.00 - 0.03 K/uL 12/12/2024 6:07 AM EDT [facility] Blood Venipuncture / Unknown 12/12/2024 3:47 AM EDT 12/12/2024 4:40 AM EDT Narrative [facility] - 12/12/2024 6:07 AM EDT When CBC w/ Auto Diff is ordered the lab will add a Manual Differential as a quality check at no additional charge if: Lymphocytes greater than seventy five percent with normal or increased WBC Monocytes greater than Fifteen percent Basophil greater than four percent Bands >10% or several immature myeloids are seen on scan Blast? Flag noted Atypical Lymph flag noted us Venkatesh Stephen MD LAB BLOOD ORDERABLES Final Resul t [facility] [address] [phone] * (ABNORMAL) Basic Metabolic Panel (12/12/2024 3:47 AM EDT) Sodium 144 136 - 145 meq/L 12/12/2024 5:16 AM EDT [facility] Potassium 3.4 3.4 - 5.1 meq/L 12/12/2024 5:16 AM EDT [facility] CO2 26 22 - 29 meq/L 12/12/2024 5:16 AM EDT [facility] Chloride 110 98 - 112 meq/L 12/12/2024 5:16 AM EDT [facility] Glucose 140(H) 82 - 115 mg/dL 12/12/2024 5:16 AM EDT [facility] BUN 70.7(H) 9.8 - 20.1 mg/dL 12/12/2024 5:16 AM EDT [facility] Creatinine 2.28(H) 0.57 - 1.11 mg/dL 12/12/2024 5:16 AM EDT [facility] BUN/Creatinine 31(H) 8 - 20 12/12/2024 5:16 AM EDT [facility] Calcium 8.3(L) 8.4 - 10.2 mg/dL 12/12/2024 5:16 AM EDT [facility] Anion Gap 11 4 - 12 12/12/2024 5:16 AM EDT [facility] eGFR (mL/min/1.73m2) 24(L) >=60 mL/min/1.7 3m2 12/12/2024 5:16 AM EDT [facility] Osmolality Calc 309.9 mOsm/kg 5:16 AM EDT [facility] Blood Venipuncture / Unknown 12/12/2024 3:47 AM EDT 12/12/2024 4:41 AM EDT us Venkatesh Stephen MD LAB BLOOD ORDERABLES Final Resul t Performing Organization Address City/[facility]/ZIP Co de Phone Number [facility] [address] [phone] * (ABNORMAL) Glucose, Nova Meter (12/11/2024 7:32 PM EDT) POC-GLUCOSE 159(H) 70 - 110 mg/dL 12/11/2024 7:33 PM EDT [facility] Comment: In the event of poor peripheral blood flow, venous or arterial blood should be used due to the potential of erroneous results. Notified Nurse RBV Laboratory Scientist [id number] 12/11/2024 7:33 PM EDT [facility] Blood WHOLE BLOOD / Unknown 12/11/2024 7:32 PM EDT 12/11/2024 7:33 PM EDT [facility] - 12/11/2024 7:33 PM EDT Laboratory Scientist ID is - [id number] us David Coffman PA-C POINT OF CARE TEST ORDERABLES Final Result Performing Organization Address [facility] Co de Phone Number [facility] [address] [phone] * (ABNORMAL) Glucose, Nova Meter (12/11/2024 4:18 PM EDT) POC-GLUCOSE 156(H) 70 - 110 mg/dL 12/11/2024 4:19 PM EDT [facility] Comment: In the event of poor peripheral blood flow, venous or arterial blood should be used due to the potential of erroneous results. Notified Nurse [facility] Laboratory Scientist [id number] 12/11/2024 4:19 PM EDT [facility] Blood WHOLE BLOOD / Unknown 12/11/2024 4:18 PM EDT 12/11/2024 4:19 PM EDT [facility] - 12/11/2024 4:19 PM EDT Laboratory Scientist ID is - [id number] us David VALDIVIA-C POINT OF CARE TEST ORDERABLES Final Result Performing Organization Address [facility] Co de Phone Number [facility] [address] [phone] * (ABNORMAL) Glucose, Nova Meter (12/11/2024 10:43 AM EDT) [facility] POC-GLUCOSE 254(H) 70 - 110 mg/dL 12/11/2024 10:45 AM EDT [facility] Comment: In the event of poor peripheral blood flow, venous or arterial blood should be used due to the potential of erroneous results. Notified Nurse RBV Laboratory Scientist [phone] 12/11/2024 10:45 AM EDT [facility] Blood WHOLE BLOOD / Unknown 12/11/2024 10:43 AM EDT 12/11/2024 10:45 AM EDT Narrative [facility] - 12/11/2024 10:45 AM EDT Laboratory Scientist ID is - [id number] David Coffman PA-C POINT OF CARE TEST ORDERABLES Final Result Performing Organization Address [facility] de Phone Number [facility] [address] [phone] * ECG 12 lead (12/11/2024 10:29 AM EDT) [facility] VENTRICULAR RATE EKG/MIN 85 BPM GE MUSE ATRIAL RATE (MCT) 85 BPM GE MUSE MI Interval 142 ms GE MUSE QRS-INTERVAL (MSEC) 92 ms GE MUSE QT Interval 400 ms GE MUSE QTC Interval 476 ms GE MUSE P [place] 34 degrees GE MUSE R AXIS (MCT) -10 degrees GE MUSE T Wave [place] 57 degrees GE MUSE Bryan Diagnosis Normal sinus rhythm Minimal voltage criteria for LVH, may be normal variant Septal infarct (cited on or before 08-DEC-2024) Abnormal ECG When compared with ECG of 10-DEC-2024 10:07, No significant change was found Confirmed by Norm Cameron MD ([id number]) on 12/13/2024 7:30:41 AM GE MUSE 12/11/2024 10:2 9 AM EDT 12/13/2024 7:30 AM EDT us Deysi Foss MD ECG ORDERABLES Final Result BJ MUSE * (ABNORMAL) Glucose, Nova Meter (12/11/2024 5:15 AM EDT) POC-GLUCOSE 143(H) 70 - 110 mg/dL 12/11/2024 5:16 AM EDT [facility] Comment: In the event of poor peripheral blood flow, venous or arterial blood should be used due to the potential of erroneous results. Notified Nurse RBV Laboratory Scientist [phone] 12/11/2024 5:16 AM EDT [facility] Blood WHOLE BLOOD / Unknown 12/11/2024 5:15 AM EDT 12/11/2024 5:16 AM EDT Narrative [facility] - 12/11/2024 5:16 AM EDT Laboratory Scientist ID is - [id number] us Venkatesh Stephen MD POINT OF CARE TEST ORDERABLES Fi nal Result Performing Organization Address City/[facility]/ZIP Co de Phone Number [facility] [address] [phone] * (ABNORMAL) Basic Metabolic Panel (12/11/2024 3:39 AM EDT) Pathologist [facility] Sodium 146(H) 136 - 145 meq/L 12/11/2024 4:25 AM EDT [facility] Potassium 3.7 3.4 - 5.1 meq/L 12/11/2024 4:25 AM EDT [facility] CO2 26 22 - 29 meq/L 12/11/2024 4:25 AM EDT [facility] Chloride 114(H) 98 - 112 meq/L 12/11/2024 4:25 AM EDT [facility] Glucose 154(H) 82 - 115 mg/dL 12/11/2024 4:25 AM EDT [facility] BUN 74.9(H) 9.8 - 20.1 mg/dL 12/11/2024 4:25 AM EDT [facility] Creatinine 2.61(H) 0.57 - 1.11 mg/dL 12/11/2024 4:25 AM EDT [facility] BUN/Creatinine 29(H) 8 - 20 12/11/2024 4:25 AM EDT [facility] Calcium 8.2(L) 8.4 - 10.2 mg/dL 12/11/2024 4:25 AM EDT [facility] Anion Gap 10 4 - 12 12/11/2024 4:25 AM EDT [facility] eGFR (mL/min/1.73m2) 20(L) >=60 mL/min/1.7 3m2 12/11/2024 4:25 AM EDT [facility] Osmolality Calc 315.9 mOsm/kg 4:25 AM EDT [facility] Blood Venipuncture / Unknown 12/11/2024 3:39 AM EDT 12/11/2024 3:59 AM EDT us Venkatesh Stephen MD LAB BLOOD ORDERABLES Final Resul t Performing Organization Address City/State/[facility] Co de Phone Number [facility] [address] [phone] * (ABNORMAL) CBC with automated diff (12/11/2024 3:36 AM EDT) WBC 1.7(LL) 4.0 - 10.0 K/ L 12/11/2024 4:19 AM EDT [facility] RBC 2.50(L) 3.93 - 5.22 M/ L 12/11/2024 4:19 AM EDT [facility] Hemoglobin 7.7(L) 11.2 - 15.7 GM/DL 12/11/2024 4:19 AM EDT [facility] Hematocrit 24.4(L) 34.1 - 44.9 % 12/11/2024 4:19 AM EDT [facility] MCV 98(H) 79 - 95 fL 12/11/2024 4:19 AM EDT [facility] MCH 30.8 25.6 - 32.2 pg 12/11/2024 4:19 AM EDT [facility] MCHC 31.6(L) 32.2 - 35.5 GM/DL 12/11/2024 4:19 AM EDT [facility] RDW 16.9(H) 11.7 - 14.4 % 12/11/2024 4:19 AM EDT [facility] Platelets 50(L) 140 - 375 K/CU MM 12/11/2024 4:19 AM EDT [facility] MPV 11.7 9.4 - 12.3 fL 12/11/2024 4:19 AM EDT [facility] % Neutros 58 34 - 71 % 12/11/2024 4:19 AM [facility] % Lymphs 27 19 - 52 % 12/11/2024 4:[facility] Monos 15(H) 5 - 13 % 12/11/2024 4:19 AM EDT [facility] % Eos 0(L) 1 - 6 % 12/11/2024 4:19 AM EDT [facility] % Baso 1 0 - 1 % 12/11/2024 4:19 AM EDT [facility] NRBC Absolute <0.01 0 - 0.012 K/ul 12/11/2024 4:19 AM EDT [facility] # Neutros 1.00(L) 1.56 - 6.13 K/ L 12/11/2024 4:19 AM EDT [facility] # Lymphs 0.46(L) 1.18 - 3.74 K/ L 12/11/2024 4:19 AM EDT [facility] # Monos 0.26 0.24 - 0.86 K/ L 12/11/2024 4:19 AM EDT [facility] # Eos <0.03(L) 0.04 - 0.36 K/ L 12/11/2024 4:19 AM EDT [facility] # Baso <0.03 0.01 - 0.08 K/ L 12/11/2024 4:19 AM EDT [facility] Immature Granulocytes-Re lative 0.00(L) 0.01 - 0.43 % 12/11/2024 4:19 AM EDT [facility] # IG <0.03 0.00 - 0.03 K/uL 12/11/2024 4:19 AM EDT [facility] Blood Venipuncture / Unknown 12/11/2024 3:36 AM EDT 12/11/2024 3:59 AM EDT Narrative [facility] - 12/11/2024 4:19 AM EDT When CBC w/ Auto Diff is ordered the lab will add a Manual Differential as a quality check at no additional charge if: Lymphocytes greater than seventy five percent with normal or increased WBC Monocytes greater than Fifteen percent Basophil greater than four percent Bands >10% or several immature myeloids are seen on scan Blast? Flag noted Atypical Lymph flag noted us Venkatesh Stephen MD LAB BLOOD ORDERABLES Final Resul t Performing Organization Address [facility] Co al Phone Number [facility] [address] [place] [address] * (ABNORMAL) Glucose, Nova Meter (12/10/2024 7:38 PM EDT) POC-GLUCOSE 201(H) 70 - 110 mg/dL 12/10/2024 7:39 PM EDT [facility] Comment: In the event of poor peripheral blood flow, venous or arterial blood should be used due to the potential of erroneous results. Notified Nurse RBV Laboratory Scientist [phone] 12/10/2024 7:39 PM EDT [facility] Blood WHOLE BLOOD / Unknown 12/10/2024 7:38 PM EDT 12/10/2024 7:39 PM EDT Narrative [facility] - 12/10/2024 7:39 PM EDT Laboratory Scientist ID is - [id number] us Venkatesh Stephen MD POINT OF CARE TEST ORDERABLES Fi nal Result Performing Organization Address [facility] Co de Phone Number [facility] [address] [phone] * (ABNORMAL) Glucose, Nova Meter (12/10/2024 6:32 PM EDT) POC-GLUCOSE 235(H) 70 - 110 mg/dL 12/10/2024 6:34 PM EDT [facility] Comment: In the event of poor peripheral blood flow, venous or arterial blood should be used due to the potential of erroneous results. Notified Nurse RBV Laboratory Scientist [id number] 12/10/2024 6:34 PM EDT [facility] Blood WHOLE BLOOD / Unknown 12/10/2024 6:32 PM EDT 12/10/2024 6:34 PM EDT Narrative [facility] - 12/10/2024 6:34 PM EDT Laboratory Scientist ID is - [id number] Venkatesh Stephen MD POINT OF CARE TEST ORDERABLES Fi nal Result Performing Organization Address [facility] Phone Number [facility] [address] [phone] * (ABNORMAL) Glucose, Nova Meter (12/10/2024 4:56 PM EDT) POC-GLUCOSE 195(H) 70 - 110 mg/dL 12/10/2024 4:58 PM EDT [facility] Comment: In the event of poor peripheral blood flow, venous or arterial blood should be used due to the potential of erroneous results. Notified Nurse RBV Laboratory Scientist [id number] 12/10/2024 4:58 PM EDT [facility] Blood WHOLE BLOOD / Unknown 12/10/2024 4:56 PM EDT 12/10/2024 4:58 PM EDT Narrative [facility] - 12/10/2024 4:58 PM EDT Laboratory Scientist ID is - [id number] Venkatesh Stephen MD POINT OF CARE TEST ORDERABLES Fi nal Result Performing Organization Address [facility] Co de Phone Number [facility] [address] [phone] * US paracentesis (12/10/2024 11:37 AM EDT) Anatomical Region Laterality Modality Abdomen Ultrasound 12/10/2024 1:22 PM EDT Impressions 12/10/2024 3:27 PM EDT Ultrasound guided right lower quadrant paracentesis as discussed above. 7.5 liters of clear yellow fluid was removed. Images reviewed, interpreted, and dictated by Dr. Haseeb Gil. Transcribed by Sujit Blackman PA-C. Narrative 12/10/2024 3:27 PM EDT ULTRASOUND-GUIDED PARACENTESIS HISTORY: Ascites. ATTENDING PHYSICIAN: Dr. Haseeb Gil PHYSICIAN ELDER ASSISTANT: Sujit Blackman PA-C FINDINGS: After informed consent was obtained from the patient and time-out procedure performed, the patient was placed sitting upright in the ultrasound suite. Fluid was localized in the right lower quadrant under ultrasound guidance and marked on the skin appropriately. The patient was then prepped and draped in the usual sterile fashion and the skin was anesthetized with 1% Lidocaine. An ultrasound guided paracentesis was then performed using a Turkel needle. Approximately 7.5 liters of clear yellow fluid was removed. No fluid was sent to lab. The patient tolerated the procedure well and there were no immediate complications. Procedure Note Haseeb Gil MD - 12/10/2024 ULTRASOUND-GUIDED PARACENTESIS HISTORY: Ascites. ATTENDING PHYSICIAN: Dr. Haseeb Gil PHYSICIAN ELDER ASSISTANT: Sujit Blackman PA-C FINDINGS: After informed consent was obtained from the patient and time-out procedure performed, the patient was placed sitting upright in the ultrasound suite. Fluid was localized in the right lower quadrant under ultrasound guidance and marked on the skin appropriately. The patient was then prepped and draped in the usual sterile fashion and the skin was anesthetized with 1% Lidocaine. An ultrasound guided paracentesis was then performed using a Turkel needle. Approximately 7.5 liters of clear yellow fluid was removed. No fluid was sent to lab. The patient tolerated the procedure well and there were no immediate complications. IMPRESSION: Ultrasound guided right lower quadrant paracentesis as discussed above. 7.5 liters of clear yellow fluid was removed. Images reviewed, interpreted, and dictated by Dr. Haseeb Gil. Transcribed by Sujit Blackman PA-C. Mary Carmen Mcfadden MD IMG US ORDERABLES Final Result * ECG 12 lead (12/10/2024 10:07 AM EDT) [facility] VENTRICULAR RATE EKG/MIN 90 BPM GE MUSE ATRIAL RATE (MCT) 90 BPM GE MUSE MI Interval 138 ms GE MUSE QRS-INTERVAL (MSEC) 90 ms GE MUSE QT Interval 396 ms GE MUSE QTC Interval 484 ms GE MUSE P [place] 31 degrees GE MUSE R AXIS (MCT) -10 degrees GE MUSE T Wave [place] 37 degrees GE MUSE [place] Diagnosis Normal sinus rhythm Leftward axis Abnormal ECG When compared with ECG of 09-DEC-2024 12:33, No significant change was found Confirmed by Aleksandr ROBIN STEVE ([id number]) on 12/12/2024 1:22:56 AM GE MUSE 12/10/2024 10:0 7 AM EDT 12/12/2024 1:22 AM EDT Deysi Foss MD ECG ORDERABLES Final Result Performing Organization Address [facility]/ZIP Co de Phone Number GE MUSE * Magnesium (12/10/2024 9:53 AM EDT) [facility] Magnesium 2.3 1.6 - 2.6 mg/dL 12/10/2024 11:02 AM EDT [facility] Blood Venipuncture / Unknown 12/10/2024 9:53 AM EDT 12/10/2024 10:39 AM EDT Deysi Foss MD LAB BLOOD ORDERABLES Final Resul t [facility] [address] [phone] * ALT (SGPT) (12/10/2024 9:53 AM EDT) [facility] ALT 12 <=34 U/L 12/10/2024 11:02 AM EDT [facility] Comment: ALT2 reagent used for testing does not contain P5P supplementation and therefore may miss ALT elevations in patients with B6 deficiency. This population may be as high as 10% in the [place], with risk factors including malabsorption, drug interactions, and alcoholic hepatitis. Blood Venipuncture / Unknown 12/10/2024 9:53 AM EDT 12/10/2024 10:39 AM EDT Deysi Foss MD LAB BLOOD ORDERABLES Final Resul t Performing Organization Address City/[facility]/ZIP Co de Phone Number [facility] [address] [phone] * (ABNORMAL) AST (SGOT) (12/10/2024 9:53 AM EDT) AST 39(H) 11 - 34 U/L 12/10/2024 11:02 AM EDT [facility] Comment: AST2 reagent used for testing does not contain P5P supplementation and therefore may miss AST elevations in patients with B6 deficiency. This population may be as high as 10% in the [place], with risk factors including malabsorption, drug interactions, and alcoholic hepatitis. [facility] has become aware of sulfasalazine and sulfapyridine drug interference in the assays ALT, AST, T4, CKMB, glucose, and ammonia. The probability of misinterpretation of results for the assays is remote and would be limited to scenarios where a patient has taken the drug and had a blood sample drawn before clearance of the drug to a level that does not interfere with laboratory testing. Venipuncture should occur prior to administration of the drug. Blood Venipuncture / Unknown 12/10/2024 9:53 AM EDT 12/10/2024 10:39 AM EDT Deysi Foss MD LAB BLOOD ORDERABLES Final Resul t [facility] [address] [phone] * XR chest AP portable (12/10/2024 9:10 AM EDT) Anatomical Region Laterality Modality Chest X-Ray 12/10/2024 9:40 AM EDT Impressions 12/10/2024 10:03 AM EDT Mild bibasilar atelectasis. Images reviewed, interpreted, and dictated by Dr. Dre Keenan. Transcribed by Haven Henderson PA-C. Narrative 12/10/2024 10:03 AM EDT PORTABLE CHEST. 12/10/2024 9:10 AM HISTORY: Respiratory failure, follow-up. COMPARISON: December 09, 2024. FINDINGS: The cardiac silhouette is mildly enlarged. Pulmonary vascular congestion has resolved. There is mild bibasilar atelectasis. There is no pneumothorax. Cervical spine fusion hardware is identified in the lower cervical spine. Procedure Note Dre Keenan MD - 12/10/2024 PORTABLE CHEST. 12/10/2024 9:10 AM HISTORY: Respiratory failure, follow-up. COMPARISON: December 09, 2024. FINDINGS: The cardiac silhouette is mildly enlarged. Pulmonary vascular congestion has resolved. There is mild bibasilar atelectasis. There is no pneumothorax. Cervical spine fusion hardware is identified in the lower cervical spine. IMPRESSION: Mild bibasilar atelectasis. Images reviewed, interpreted, and dictated by Dr. Dre Keenan. Transcribed by Haven Henderson PA-C. Blanka Malagon MD IMG DIAGNOSTIC IMAGING ORDERA BLES Final Result * (ABNORMAL) ABG (12/10/2024 6:42 AM EDT) pH, Arterial 7.30(L) 7.35 - 7.45 12/10/2024 6:51 AM EDT [facility] pCO2, Arterial 49(H) 35 - 45 mm Hg 12/10/2024 6:51 AM EDT [facility] pO2, Arterial 119(H) 80 - 100 mm Hg 12/10/2024 6:51 AM EDT [facility] HCO3, Arterial 24 20 - 26 mmol/L 12/10/2024 6:51 AM EDT [facility] Base Excess, Arterial -2.4(L) -2.0 - 2.0 mmol/L 12/10/2024 6:51 AM EDT [facility] O2 Sat, Arterial >99.2 95.0 - 100.0 % 12/10/2024 6:51 AM EDT [facility] Comment:notified at read-anny k verification CTO2 ARTERIAL 11.9 mmol/L 12/10/2024 6:51 AM EDT [facility] THB ARTERIAL 8.5(L) 12.0 - 18.0 g/dL 12/10/2024 6:51 AM EDT [facility] COLLECTION SITE Left Radial 12/10/2024 6:51 AM EDT [facility] Arterial Puncture Yes 12/10/2024 6:51 AM EDT [facility] Blood Gas O2 Delivery Device Cannula 12/10/2024 6:51 AM EDT [facility] Oxygen Flow Rate 4 12/11/19 25 6:51 AM EDT [facility] Blood Gas PT Temperature C 37.0 12/10/2024 6:51 AM EDT [facility] Sen's Test Acceptable 12/10/2024 6:51 AM EDT [facility] ABG Number of Draw Attempts 1 12/10/2024 6:51 AM EDT [facility] FIO2 12/10/2024 6:51 AM EDT [facility] Blood Gas Temperature Corrected Results No No 12/10/2024 6:51 AM EDT [facility] Blood, Arterial Collection / Unknown 12/10/2024 6:42 AM EDT 12/10/2024 6:51 AM EDT us Blanka Malagon MD LAB BLOOD ORDERABLES Final Re sult [facility] [address] [phone] * (ABNORMAL) Glucose, Nova Meter (12/10/2024 5:52 AM EDT) POC-GLUCOSE 162(H) 70 - 110 mg/dL 12/10/2024 5:53 AM EDT [facility] Comment: In the event of poor peripheral blood flow, venous or arterial blood should be used due to the potential of erroneous results. Notified Nurse RBV Laboratory Scientist [id number] 12/10/2024 5:53 AM EDT [facility] Blood WHOLE BLOOD / Unknown 12/10/2024 5:52 AM EDT 12/10/2024 5:53 AM EDT Narrative [facility] - 12/10/2024 5:53 AM EDT Laboratory Scientist ID is - [id number] Mary Carmen Mcfadden MD POINT OF CARE TEST ORDERABLES F inal Result Performing Organization Address City/[facility]/ZIP Co de Phone Number [facility] [address] [phone] * (ABNORMAL) Glucose, Nova Meter (12/09/2024 7:30 PM EDT) POC-GLUCOSE 158(H) 70 - 110 mg/dL 12/09/2024 7:31 PM EDT [facility] Comment: In the event of poor peripheral blood flow, venous or arterial blood should be used due to the potential of erroneous results. Notified Nurse RBV Laboratory Scientist [phone] 12/09/2024 7:31 PM EDT [facility] Blood WHOLE BLOOD / Unknown 12/09/2024 7:30 PM EDT 12/09/2024 7:31 PM EDT Narrative [facility] - 12/09/2024 7:31 PM EDT Laboratory Scientist ID is - [id number] Mary Carmen Mcfadden MD POINT OF CARE TEST ORDERABLES F inal Result [facility] [address] [place] [address], [facility] [phone] * (ABNORMAL) Glucose, Nova Meter (12/09/2024 4:23 PM EDT) POC-GLUCOSE 173(H) 70 - 110 mg/dL 12/09/2024 4:24 PM EDT [facility] Comment: In the event of poor peripheral blood flow, venous or arterial blood should be used due to the potential of erroneous results. Notified Nurse RBV Laboratory Scientist [id number] 12/09/2024 4:24 PM EDT [facility] Blood WHOLE BLOOD / Unknown 12/09/2024 4:23 PM EDT 12/09/2024 4:24 PM EDT Narrative [facility] - 12/09/2024 4:24 PM EDT Laboratory Scientist ID is - [id number] us Mary Carmen Mcfadden MD POINT OF CARE TEST ORDERABLES F inal Result Performing Organization Address [facility]/ZIP Co de Phone Number [facility] [address] [phone] * ECG 12 lead (12/09/2024 12:33 PM EDT) VENTRICULAR RATE EKG/MIN 91 BPM GE MUSE ATRIAL RATE (MCT) 91 BPM GE MUSE MI Interval 140 ms GE MUSE QRS-INTERVAL (MSEC) 88 ms GE MUSE QT Interval 386 ms GE MUSE QTC Interval 474 ms GE MUSE P [place] 44 degrees GE MUSE R AXIS (MCT) -3 degrees GE MUSE T Wave [place] 16 degrees GE MUSE Bryan Diagnosis Normal sinus rhythm Minimal voltage criteria for LVH, may be normal variant Septal infarct (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 ([id number]) on 12/09/2024 6:05:19 PM GE MUSE 12/09/2024 12:3 3 PM EDT 12/09/2024 6:05 PM EDT us Deysi Foss MD ECG ORDERABLES Final Result Performing Organization Address [facility]/ZIP Co de Phone Number [employer] * (ABNORMAL) Glucose, Nova Meter (12/09/2024 11:17 AM EDT) POC-GLUCOSE 173(H) 70 - 110 mg/dL 12/09/2024 11:18 AM EDT [facility] Comment: In the event of poor peripheral blood flow, venous or arterial blood should be used due to the potential of erroneous results. Notified Nurse RBV Laboratory Scientist [phone] 12/09/2024 11:18 AM EDT [facility] Blood WHOLE BLOOD / Unknown 12/09/2024 11:17 AM EDT 12/09/2024 11:18 AM EDT Narrative [facility] - 12/09/2024 11:18 AM EDT Laboratory Scientist ID is - [id number] Mary Carmen Mcfadden MD POINT OF CARE TEST ORDERABLES F inal Result [facility] [address] [phone] * XR chest AP portable (12/09/2024 7:09 AM EDT) Anatomical Region Laterality Modality Chest X-Ray 12/09/2024 8:44 AM EDT Impressions 12/09/2024 11:54 AM EDT Stable interstitial opacities. Slight worsening of bibasilar atelectasis. Images reviewed, interpreted, and dictated by Dr. Lizzie Myles. Transcribed by Haven Henderson PA-C. Narrative 12/09/2024 11:54 AM EDT PORTABLE CHEST. 12/09/2024 6:35 AM HISTORY: Acute respiratory failure. COMPARISON: December 07, 2024. FINDINGS: The cardiac silhouette is mildly enlarged. The mediastinum is unremarkable. There are low lung volumes. There has been no change in interstitial opacities. There has been slight worsening of bibasilar atelectasis. There is no pneumothorax. Procedure Note Lizzie Myles MD - 12/09/2024 PORTABLE CHEST. 12/09/2024 6:35 AM HISTORY: Acute respiratory failure. COMPARISON: December 07, 2024. FINDINGS: The cardiac silhouette is mildly enlarged. The mediastinum is unremarkable. There are low lung volumes. There has been no change in interstitial opacities. There has been slight worsening of bibasilar atelectasis. There is no pneumothorax. IMPRESSION: Stable interstitial opacities. Slight worsening of bibasilar atelectasis. Images reviewed, interpreted, and dictated by Dr. Lizzie Myles. Transcribed by Haven Henderson PA-C. us Blanka Malagon MD IMG DIAGNOSTIC IMAGING ORDERA BLES Final Result * (ABNORMAL) ABG (12/09/2024 6:37 AM EDT) pH, Arterial 7.28(L) 7.35 - 7.45 12/09/2024 6:52 AM EDT [facility] pCO2, Arterial 51(H) 35 - 45 mm Hg 12/09/2024 6:52 AM EDT [facility] pO2, Arterial 157(H) 80 - 100 mm Hg 12/09/2024 6:52 AM EDT [facility] HCO3, Arterial 24 20 - 26 mmol/L 12/09/2024 6:52 AM EDT [facility] Base Excess, Arterial -2.6(L) -2.0 - 2.0 mmol/L 12/09/2024 6:52 AM EDT [facility] O2 Sat, Arterial >99.2 95.0 - 100.0 % 12/09/2024 6:52 AM EDT [facility] Comment:[id number] notified PAULINO COFFMAN RN at 12/09/2024 06:51 read-back verification CTO2 ARTERIAL 12.3 mmol/L 12/09/2024 6:52 AM EDT [facility] THB ARTERIAL 8.7(L) 12.0 - 18.0 g/dL 12/09/2024 6:52 AM EDT [facility] COLLECTION SITE Left Radial 12/09/2024 6:52 AM EDT [facility] Arterial Puncture Yes 12/09/2024 6:52 AM EDT [facility] Blood Gas O2 Delivery Device Cannula 12/09/2024 6:52 AM EDT [facility] Oxygen Flow Rate 4 12/10/19 6:52 AM EDT [facility] Blood Gas PT Temperature C 37.0 12/09/2024 6:52 AM EDT [facility] Sen's Test Acceptable 12/09/2024 6:52 AM EDT [facility] Critical Values Notification Critical Blood gas called to DAYANARA MILES . [place] [id number] and confirmed on 12/09/2024 06:51 12/09/2024 6:52 AM EDT [facility] ABG Number of Draw Attempts 1 12/09/2024 6:52 AM EDT [facility] FIO2 12/09/2024 6:52 AM EDT [facility] Blood Gas Temperature Corrected Results No No 12/09/2024 6:52 AM EDT [facility] Blood, Arterial ENTIRE LEFT UPPER ARM / Unknown 12/09/2024 6:37 AM EDT 12/09/2024 6:52 AM EDT us Blanka Malagon MD LAB BLOOD ORDERABLES Final Re sult Performing Organization Address [facility]/ZIP Co de Phone Number [facility] [address] [phone] * (ABNORMAL) Glucose, Nova Meter (12/09/2024 5:45 AM EDT) [facility] POC-GLUCOSE 148(H) 70 - 110 mg/dL 12/09/2024 5:46 AM EDT [facility] Comment: In the event of poor peripheral blood flow, venous or arterial blood should be used due to the potential of erroneous results. Notified Nurse [facility] Laboratory Scientist [phone] 12/09/2024 5:46 AM EDT [facility] Blood WHOLE BLOOD / Unknown 12/09/2024 5:45 AM EDT 12/09/2024 5:46 AM EDT Narrative [facility] - 12/09/2024 5:46 AM EDT Laboratory Scientist ID is - [id number] us Mary Carmen Mcfadden MD POINT OF CARE TEST ORDERABLES F inal Result Performing Organization Address [facility]/ZIP Co de Phone Number [facility] [address] [phone] * (ABNORMAL) CBC - Hemogram (SJ-BKR) (12/09/2024 3:38 AM EDT) WBC 2.4(L) 4.0 - 10.0 K/ L 12/09/2024 3:59 AM EDT [facility] RBC 2.83(L) 3.93 - 5.22 M/ L 12/09/2024 3:59 AM EDT [facility] Hemoglobin 8.5(L) 11.2 - 15.7 GM/DL 12/09/2024 3:59 AM EDT [facility] Hematocrit 28.0(L) 34.1 - 44.9 % 12/09/2024 3:59 AM EDT [facility] MCV 99(H) 79 - 95 fL 12/09/2024 3:59 AM EDT [facility] MCH 30.0 25.6 - 32.2 pg 12/09/2024 3:59 AM EDT [facility] MCHC 30.4(L) 32.2 - 35.5 GM/DL 12/09/2024 3:59 AM EDT [facility] RDW 17.2(H) 11.7 - 14.4 % 12/09/2024 3:59 AM EDT [facility] Platelets 55(L) 140 - 375 K/CU MM 12/09/2024 3:59 AM EDT [facility] MPV 11.5 9.4 - 12.3 fL 12/09/2024 3:59 AM EDT [facility] Blood Venipuncture / Unknown 12/09/2024 3:38 AM EDT 12/09/2024 3:45 AM EDT us Mary Carmen Mcfadden MD LAB BLOOD ORDERABLES Final Resu lt [facility] [address] [place] [id number] [phone] * (ABNORMAL) Basic Metabolic Panel (12/09/2024 3:38 AM EDT) Sodium 148(H) 136 - 145 meq/L 12/09/2024 4:07 AM EDT [facility] Potassium 3.6 3.4 - 5.1 meq/L 12/09/2024 4:07 AM EDT [facility] CO2 23 22 - 29 meq/L 12/09/2024 4:07 AM EDT [facility] Chloride 116(H) 98 - 112 meq/L 12/09/2024 4:07 AM EDT [facility] Glucose 146(H) 82 - 115 mg/dL 12/09/2024 4:07 AM EDT [facility] BUN 77.3(H) 9.8 - 20.1 mg/dL 12/09/2024 4:07 AM EDT [facility] Creatinine 2.82(H) 0.57 - 1.11 mg/dL 12/09/2024 4:07 AM EDT [facility] BUN/Creatinine 27(H) 8 - 20 12/09/2024 4:07 AM EDT [facility] Calcium 8.7 8.4 - 10.2 mg/dL 12/09/2024 4:07 AM EDT [facility] Anion Gap 13(H) 4 - 12 12/09/2024 4:07 AM EDT [facility] eGFR (mL/min/1.73m2) 18(L) >=60 mL/min/1.7 3m2 12/09/2024 4:07 AM EDT [facility] Osmolality Calc 320.0 mOsm/kg 4:07 AM EDT [facility] Blood Venipuncture / Unknown 12/09/2024 3:38 AM EDT 12/09/2024 3:45 AM EDT us Mary Carmen Mcfadden MD LAB BLOOD ORDERABLES Final Resu lt [facility] [address] [place] [id number] [phone] * (ABNORMAL) Glucose, Nova Meter (12/08/2024 8:08 PM EDT) POC-GLUCOSE 172(H) 70 - 110 mg/dL 12/08/2024 8:08 PM EDT [facility] Comment: In the event of poor peripheral blood flow, venous or arterial blood should be used due to the potential of erroneous results. Notified Nurse [facility]BV Laboratory Scientist [phone] 12/08/2024 8:08 PM EDT [facility] Blood WHOLE BLOOD / Unknown 12/08/2024 8:08 PM EDT 12/08/2024 8:08 PM EDT Narrative [facility] - 12/08/2024 8:08 PM EDT Laboratory Scientist ID is - [id number] Mary Carmen Mcfadden MD POINT OF CARE TEST ORDERABLES F inal Result [facility] [address] [phone] * (ABNORMAL) Glucose, Nova Meter (12/08/2024 3:34 PM EDT) POC-GLUCOSE 159(H) 70 - 110 mg/dL 12/08/2024 3:36 PM EDT [facility] Comment: In the event of poor peripheral blood flow, venous or arterial blood should be used due to the potential of erroneous results. Notified Nurse [facility]BV Laboratory Scientist [id number] 12/08/2024 3:36 PM EDT [facility] Blood WHOLE BLOOD / Unknown 12/08/2024 3:34 PM EDT 12/08/2024 3:36 PM EDT Narrative [facility] - 12/08/2024 3:36 PM EDT Laboratory Scientist ID is - [id number] us Mary Carmen Mcfadden MD POINT OF CARE TEST ORDERABLES F inal Result [facility] [address] [phone] * (ABNORMAL) Glucose, Nova Meter (12/08/2024 10:57 AM EDT) POC-GLUCOSE 191(H) 70 - 110 mg/dL 12/08/2024 10:59 AM EDT [facility] Comment: In the event of poor peripheral blood flow, venous or arterial blood should be used due to the potential of erroneous results. Protocols Followed Notified Nurse [facility]BV Laboratory Scientist [id number] 12/08/2024 10:59 AM EDT [facility] Blood WHOLE BLOOD / Unknown 12/08/2024 10:57 AM EDT 12/08/2024 10:59 AM EDT Narrative [facility] - 12/08/2024 10:59 AM EDT Laboratory Scientist ID is - [id number] us Mary Carmen Mcfadden MD POINT OF CARE TEST ORDERABLES F inal Result Performing Organization Address [facility] Co de Phone Number [facility] [address] [phone] * ECG 12 lead (12/08/2024 10:55 AM EDT) VENTRICULAR RATE EKG/MIN 92 BPM GE MUSE ATRIAL RATE (MCT) 92 BPM GE MUSE MI Interval 138 ms GE MUSE QRS-INTERVAL (MSEC) 94 ms GE MUSE QT Interval 354 ms GE MUSE QTC Interval 437 ms GE MUSE P [place] 30 degrees GE MUSE R AXIS (MCT) -11 degrees GE MUSE T Wave [place] 37 degrees GE MUSE [place] Diagnosis Normal sinus rhythm Minimal voltage criteria for LVH, may be normal variant Septal infarct , age undetermined Confirmed by DEYSI FOSS M.D. ([id number]) on 12/08/2024 4:27:47 PM GE MUSE 12/08/2024 10:5 5 AM EDT 12/08/2024 4:27 PM EDT us Deysi Foss MD ECG ORDERABLES Final Result Performing Organization Address City/[facility] Co de Phone Number GE MUSE * (ABNORMAL) Blood gas, arterial (12/08/2024 7:13 AM EDT) pH, Arterial 7.26(L) 7.35 - 7.45 12/08/2024 7:31 AM EDT [facility] pCO2, Arterial 54(H) 35 - 45 mm Hg 12/08/2024 7:31 AM EDT [facility] pO2, Arterial 80 80 - 100 mm Hg 12/08/2024 7:31 AM EDT [facility] HCO3, Arterial 24 20 - 26 mmol/L 12/08/2024 7:31 AM EDT [facility] Base Excess, Arterial -2.9(L) -2.0 - 2.0 mmol/L 12/08/2024 7:31 AM EDT [facility] O2 Sat, Arterial 96.7 95.0 - 100.0 % 12/08/2024 7:31 AM EDT [facility] CTO2 ARTERIAL 11.8 mmol/L 12/08/2024 7:31 AM EDT [facility] THB ARTERIAL 8.8(L) 12.0 - 18.0 g/dL 12/08/2024 7:31 AM EDT [facility] COLLECTION SITE Right Brachial 12/08/2024 7:31 AM EDT [facility] Arterial Puncture Yes 12/08/2024 7:31 AM EDT [facility] Blood Gas O2 Delivery Device Cannula 12/08/2024 7:31 AM EDT [facility] Oxygen Flow Rate 4 12/09/19 7:31 AM EDT [facility] Blood Gas PT Temperature C 37.0 12/08/2024 7:31 AM EDT [facility] Sen's Test Not Applicable 12/09/19 7:31 AM EDT [facility] Critical Values Notification Critical Blood gas called to KNOWN CONDITION . Results acknowledged/r ead back to [id number] and confirmed on 12/08/2024 07:30 12/08/2024 7:31 AM EDT [facility] ABG Number of Draw Attempts 1 12/08/2024 7:31 AM EDT [facility] FIO2 12/08/2024 7:31 AM EDT [facility] Blood Gas Temperature Corrected Results No No 12/08/2024 7:31 AM EDT [facility] Blood, Arterial 12/08/2024 7 :13 AM EDT 12/08/2024 7:31 AM EDT us Yasser Zohary MD LAB BLOOD ORDERABLES Final Resu lt [facility] [address] [phone] * (ABNORMAL) Glucose, Nova Meter (12/08/2024 6:08 AM EDT) POC-GLUCOSE 136(H) 70 - 110 mg/dL 12/08/2024 6:09 AM EDT [facility] Comment: In the event of poor peripheral blood flow, venous or arterial blood should be used due to the potential of erroneous results. Protocols Followed Notified Nurse RBV Laboratory Scientist [phone] 12/08/2024 6:09 AM EDT [facility] Blood WHOLE BLOOD / Unknown 12/08/2024 6:08 AM EDT 12/08/2024 6:09 AM EDT Narrative [facility] - 12/08/2024 6:09 AM EDT Laboratory Scientist ID is - [id number] aMry Carmen Mcfadden MD POINT OF CARE TEST ORDERABLES F inal Result [facility] [address] [phone] * (ABNORMAL) CBC - Hemogram (SJ-BKR) (12/08/2024 4:10 AM EDT) WBC 3.1(L) 4.0 - 10.0 K/ L 12/08/2024 4:53 AM EDT [facility] RBC 2.84(L) 3.93 - 5.22 M/ L 12/08/2024 4:53 AM EDT [facility] Hemoglobin 8.7(L) 11.2 - 15.7 GM/DL 12/08/2024 4:53 AM EDT [facility] Hematocrit 28.2(L) 34.1 - 44.9 % 12/08/2024 4:53 AM EDT [facility] MCV 99(H) 79 - 95 fL 12/08/2024 4:53 AM EDT [facility] MCH 30.6 25.6 - 32.2 pg 12/08/2024 4:53 AM EDT [facility] MCHC 30.9(L) 32.2 - 35.5 GM/DL 12/08/2024 4:53 AM EDT [facility] RDW 17.4(H) 11.7 - 14.4 % 12/08/2024 4:53 AM EDT [facility] Platelets 54(L) 140 - 375 K/CU MM 12/08/2024 4:53 AM EDT [facility] MPV 11.2 9.4 - 12.3 fL 12/08/2024 4:53 AM EDT [facility] Blood Venipuncture / Unknown 12/08/2024 4:10 AM EDT 12/08/2024 4:37 AM EDT us Mary Carmen Mcfadden MD LAB BLOOD ORDERABLES Final Resu lt Performing Organization Address City/State/[facility] Co de Phone Number [facility] [address] [phone] * (ABNORMAL) Basic Metabolic Panel (12/08/2024 4:10 AM EDT) Sodium 149(H) 136 - 145 meq/L 12/08/2024 5:22 AM EDT [facility] Potassium 3.6 3.4 - 5.1 meq/L 12/08/2024 5:22 AM EDT [facility] CO2 23 22 - 29 meq/L 12/08/2024 5:22 AM EDT [facility] Chloride 116(H) 98 - 112 meq/L 12/08/2024 5:22 AM EDT [facility] Glucose 160(H) 82 - 115 mg/dL 12/08/2024 5:22 AM EDT [facility] BUN 76.4(H) 9.8 - 20.1 mg/dL 12/08/2024 5:22 AM EDT [facility] Creatinine 2.92(H) 0.57 - 1.11 mg/dL 12/08/2024 5:22 AM EDT [facility] BUN/Creatinine 26(H) 8 - 20 12/08/2024 5:22 AM EDT [facility] Calcium 8.7 8.4 - 10.2 mg/dL 12/08/2024 5:22 AM EDT [facility] Anion Gap 14(H) 4 - 12 12/08/2024 5:22 AM EDT [facility] eGFR (mL/min/1.73m2) 18(L) >=60 mL/min/1.7 3m2 12/08/2024 5:22 AM EDT [facility] Osmolality Calc 322.3 mOsm/kg 5:22 AM EDT [facility] Blood Venipuncture / Unknown 12/08/2024 4:10 AM EDT 12/08/2024 4:40 AM EDT Mary Carmen Mcfadden MD LAB BLOOD ORDERABLES Final Resu lt Performing Organization Address [facility] Co de Phone Number [facility] [address] [phone] * (ABNORMAL) Glucose, Nova Meter (12/07/2024 7:54 PM EDT) [facility] POC-GLUCOSE 164(H) 70 - 110 mg/dL 12/07/2024 7:55 PM EDT [facility] Comment: In the event of poor peripheral blood flow, venous or arterial blood should be used due to the potential of erroneous results. Protocols Followed Notified Nurse [facility]BV Laboratory Scientist [phone] 12/07/2024 7:55 PM EDT [facility] Blood WHOLE BLOOD / Unknown 12/07/2024 7:54 PM EDT 12/07/2024 7:55 PM EDT Narrative [facility] - 12/07/2024 7:55 PM EDT Laboratory Scientist ID is - [id number] Mary Carmen Mcfadden MD POINT OF CARE TEST ORDERABLES F inal Result Performing Organization Address City/[facility]/ZIP Co de Phone Number [facility] [address] [place] [address], [facility] [phone] * (ABNORMAL) ABG (12/07/2024 4:21 PM EDT) pH, Arterial 7.29(L) 7.35 - 7.45 12/07/2024 4:43 PM EDT [facility] pCO2, Arterial 50(H) 35 - 45 mm Hg 12/07/2024 4:43 PM EDT [facility] pO2, Arterial 179(H) 80 - 100 mm Hg 12/07/2024 4:43 PM EDT [facility] HCO3, Arterial 24 20 - 26 mmol/L 12/07/2024 4:43 PM EDT [facility] Base Excess, Arterial -2.3(L) -2.0 - 2.0 mmol/L 12/07/2024 4:43 PM EDT [facility] O2 Sat, Arterial >100.0(H) 95.0 - 100.0 % 12/07/2024 4:43 PM EDT [facility] Comment:[id number] notified MORRIS LORENZ RN at 12/07/2024 16:42 read-back verification CTO2 ARTERIAL 12.0 mmol/L 12/07/2024 4:43 PM EDT [facility] THB ARTERIAL 8.4(L) 12.0 - 18.0 g/dL 12/07/2024 4:43 PM EDT [facility] PaO2/FIO2 calculated 359.0 12/07/2024 4:43 PM EDT [facility] COLLECTION SITE Right Brachial 12/07/2024 4:43 PM EDT [facility] Arterial Puncture Yes 12/07/2024 4:43 PM EDT [facility] Blood Gas O2 Delivery Device NIV 12/07/2024 4:43 PM EDT [facility] Blood Gas PT Temperature C 37.0 12/07/2024 4:43 PM EDT [facility] Sen's Test Not Applicable 12/08/19 4:43 PM EDT [facility] Critical Values Notification Critical Blood gas called to SEB LORENZ RN . Results acknowledged/r ead back to [id number] and confirmed on 12/07/2024 16:42 12/07/2024 4:43 PM EDT [facility] ABG Number of Draw Attempts 2 12/07/2024 4:43 PM EDT [facility] Set Rate 16.0 12/07/2024 4:43 PM EDT [facility] IPAP 10 12/07/2024 4:43 PM EDT [facility] EPAP 6 12/07/2024 4:43 PM EDT [facility] FIO2 50.0 12/07/2024 4:43 PM EDT [facility] Blood Gas Temperature Corrected Results No No 12/07/2024 4:43 PM EDT [facility] Blood, Arterial 12/07/2024 4 :21 PM EDT 12/07/2024 4:43 PM EDT us Blanka Malagon MD LAB BLOOD ORDERABLES Final Re sult Performing Organization Address [facility] Co de Phone Number [facility] [address] [phone] * (ABNORMAL) Glucose, Nova Meter (12/07/2024 3:39 PM EDT) [facility] POC-GLUCOSE 159(H) 70 - 110 mg/dL 12/07/2024 3:41 PM EDT [facility] Comment: In the event of poor peripheral blood flow, venous or arterial blood should be used due to the potential of erroneous results. Notified Nurse [facility]BV Laboratory Scientist [phone] 12/07/2024 3:41 PM EDT [facility] Blood WHOLE BLOOD / Unknown 12/07/2024 3:39 PM EDT 12/07/2024 3:41 PM EDT Narrative [facility] - 12/07/2024 3:41 PM EDT Laboratory Scientist ID is - [id number] us Mary Carmen Mcfadden MD POINT OF CARE TEST ORDERABLES F inal Result Performing Organization Address [facility]/ZIP Co de Phone Number [facility] [address] [phone] * XR chest AP portable (12/07/2024 2:25 PM EDT) Anatomical Region Laterality Modality Chest X-Ray 12/07/2024 3:50 PM EDT Impressions 12/07/2024 4:44 PM EDT Interval improvement in interstitial opacities. Images reviewed, interpreted, and dictated by Dr. Lizzie Myles. Transcribed by Sandra Ramsey PA-C. Narrative 12/07/2024 4:44 PM EDT PORTABLE CHEST; HISTORY: Renal failure. COMPARISON: 1 day prior. FINDINGS: The heart is enlarged. The mediastinum is unremarkable. There has been interval improvement in interstitial opacities. There is no new infiltrate or pleural effusion. There is no pneumothorax. Procedure Note Lizzie Myles MD - 12/07/2024 PORTABLE CHEST; HISTORY: Renal failure. COMPARISON: 1 day prior. FINDINGS: The heart is enlarged. The mediastinum is unremarkable. There has been interval improvement in interstitial opacities. There is no new infiltrate or pleural effusion. There is no pneumothorax. IMPRESSION: Interval improvement in interstitial opacities. Images reviewed, interpreted, and dictated by Dr. Lizzie Myles. Transcribed by Sandra Ramsey PA-C. Mary Carmen Mcfadden MD IMG DIAGNOSTIC IMAGING ORDERABL ES Final Result * (ABNORMAL) Blood gas, arterial (12/07/2024 2:02 PM EDT) pH, Arterial 7.28(L) 7.35 - 7.45 12/07/2024 3:27 PM EDT [facility] pCO2, Arterial 50(H) 35 - 45 mm Hg 12/07/2024 3:27 PM EDT [facility] pO2, Arterial 58(L) 80 - 100 mm Hg 12/07/2024 3:27 PM EDT [facility] HCO3, Arterial 24 20 - 26 mmol/L 12/07/2024 3:27 PM EDT [facility] Base Excess, Arterial -3.3(L) -2.0 - 2.0 mmol/L 12/07/2024 3:27 PM EDT [facility] O2 Sat, Arterial 91.3(L) 95.0 - 100.0 % 12/07/2024 3:27 PM EDT [facility] CTO2 ARTERIAL 11.2 mmol/L 12/07/2024 3:27 PM EDT [facility] THB ARTERIAL 8.9(L) 12.0 - 18.0 g/dL 12/07/2024 3:27 PM EDT [facility] COLLECTION SITE Right Radial 12/07/2024 3:27 PM EDT [facility] Arterial Puncture Yes 12/07/2024 3:27 PM EDT [facility] Blood Gas O2 Delivery Device Cannula 12/07/2024 3:27 PM EDT [facility] Oxygen Flow Rate 2 12/07/2024 3:27 PM EDT [facility] Blood Gas PT Temperature C 37.0 12/07/2024 3:27 PM EDT [facility] Sen's Test Unacceptable 12/07/2024 3:27 PM EDT [facility] Vent Mode Other 12/07/2024 3:27 PM EDT [facility] Critical Values Notification Critical Blood gas called to DR MALAGON . [place] [id number] and confirmed on 12/07/2024 14:14 12/07/2024 3:27 PM EDT [facility] ABG Number of Draw Attempts 1 12/07/2024 3:27 PM EDT [facility] Performed by: CD 12/07/2024 3:27 PM EDT [facility] FIO2 12/07/2024 3:27 PM EDT [facility] Blood Gas Temperature Corrected Results No No 12/07/2024 3:27 PM EDT [facility] Blood, Arterial 12/07/2024 2 :02 PM EDT 12/07/2024 2:14 PM EDT us Mary Carmen Mcfadden MD LAB BLOOD ORDERABLES Final Resu lt [facility] [address] [phone] * (ABNORMAL) Glucose, Nova Meter (12/07/2024 10:54 AM EDT) [facility] POC-GLUCOSE 146(H) 70 - 110 mg/dL 12/07/2024 10:56 AM EDT [facility] Comment: In the event of poor peripheral blood flow, venous or arterial blood should be used due to the potential of erroneous results. Notified Nurse [facility]BV Laboratory Scientist [phone] 12/07/2024 10:56 AM EDT [facility] Blood WHOLE BLOOD / Unknown 12/07/2024 10:54 AM EDT 12/07/2024 10:56 AM EDT Narrative [facility] - 12/07/2024 10:56 AM EDT Laboratory Scientist ID is - [id number] Mary Carmen Mcfadden MD POINT OF CARE TEST ORDERABLES F inal Result [facility] [address] [place] [address] * (ABNORMAL) Blood gas, arterial (12/07/2024 10:36 AM EDT) [facility] pH, Arterial 7.26(L) 7.35 - 7.45 12/07/2024 1:50 PM EDT [facility] pCO2, Arterial 50(H) 35 - 45 mm Hg 12/07/2024 1:50 PM EDT [facility] pO2, Arterial 43(LL) 80 - 100 mm Hg 12/07/2024 1:50 PM EDT [facility] HCO3, Arterial 22 20 - 26 mmol/L 12/07/2024 1:50 PM EDT [facility] Base Excess, Arterial -4.7(L) -2.0 - 2.0 mmol/L 12/07/2024 1:50 PM EDT [facility] O2 Sat, Arterial 80.4(L) 95.0 - 100.0 % 12/07/2024 1:50 PM EDT [facility] Comment:[id number] notified TRAY LORENZ RN at 12/07/2024 10:51 read-back verification CTO2 ARTERIAL 9.4 mmol/L 12/07/2024 1:50 PM EDT [facility] THB ARTERIAL 8.5(L) 12.0 - 18.0 g/dL 12/07/2024 1:50 PM EDT [facility] PaO2/FIO2 calculated 203.0 12/07/2024 1:50 PM EDT [facility] COLLECTION SITE Right Radial 12/07/2024 1:50 PM EDT [facility] Arterial Puncture Yes 12/07/2024 1:50 PM EDT [facility] Blood Gas PT Temperature C 37.0 12/07/2024 1:50 PM EDT [facility] Sen's Test Acceptable 12/07/2024 1:50 PM EDT [facility] Critical Values Notification Critical Blood gas called to TRAY LORENZ RN . [place] [id number] and confirmed on 12/07/2024 10:51 12/07/2024 1:50 PM EDT [facility] ABG Number of Draw Attempts 1 12/07/2024 1:50 PM EDT [facility] FIO2 21.0 12/07/2024 1:50 PM EDT [facility] Blood Gas Temperature Corrected Results No No 12/07/2024 1:50 PM EDT [facility] Blood, Arterial 12/07/2024 1 0:36 AM EDT 12/07/2024 1:50 PM EDT us Mary Carmen Mcfadden MD LAB BLOOD ORDERABLES Final Resu lt [facility] 1 [address] [phone] * ECG 12 lead (12/07/2024 10:29 AM EDT) VENTRICULAR RATE EKG/MIN 91 BPM GE MUSE ATRIAL RATE (MCT) 91 BPM GE MUSE MI Interval 142 ms GE MUSE QRS-INTERVAL (MSEC) 88 ms GE MUSE QT Interval 376 ms GE MUSE QTC Interval 462 ms GE MUSE P [place] 39 degrees GE MUSE R AXIS (MCT) -3 degrees GE MUSE T Wave [place] 4 degrees GE MUSE [place] Diagnosis Normal sinus rhythm Nonspecific T wave abnormality Abnormal ECG When compared with ECG of 06-DEC-2024 13:16, No significant change was found Confirmed by DEYSI FOSS M.D. ([id number]) on 12/07/2024 7:36:17 PM GE MUSE 12/07/2024 10:2 9 AM EDT 12/07/2024 7:36 PM EDT Mary Carmen Mcfadden MD ECG ORDERABLES Final Result Performing Organization Address [facility] de Phone Number GE MUSE * (ABNORMAL) Glucose, Nova Meter (12/07/2024 5:51 AM EDT) [facility] POC-GLUCOSE 159(H) 70 - 110 mg/dL 12/07/2024 5:52 AM EDT [facility] Comment: In the event of poor peripheral blood flow, venous or arterial blood should be used due to the potential of erroneous results. Notified Nurse RBV Laboratory Scientist [phone] 12/07/2024 5:52 AM EDT [facility] Blood WHOLE BLOOD / Unknown 12/07/2024 5:51 AM EDT 12/07/2024 5:52 AM EDT Narrative [facility] - 12/07/2024 5:52 AM EDT Laboratory Scientist ID is - [id number] Mary Carmen Mcfadden MD POINT OF CARE TEST ORDERABLES F inal Result Performing Organization Address City/[facility]/ZIP Co de Phone Number [facility] [address] [phone] * Erythropoietin(SENDOUT) (12/07/2024 3:59 AM EDT) [facility] Erythropoietin 19 4 - 27 mU/mL 12/08/2024 2:30 PM EDT [facility] Comment: INTERPRETIVE INFORMATION: Erythropoietin Normal serum concentrations of erythropoietin for 95% of individuals with normal hematocrits range from 4-27 mU/mL. As the hematocrit is lowered by iron deficiency, aplastic, or hemolytic anemia, the concentration of erythropoietin increases as shown in the graph below. In the absence of anemia, elevated concentrations are seen in renal tumors, as a manifestation of renal transplant rejection, and in secondary polycythemia. Low values may be observed in hemochromatosis. Expected Erythropoietin Concentrations in Patients with Uncomplicated Anemia Erythropoietin (mU/mL) 100,000 - + + 10,000 - +....... + ....... 1,000 - + ....... + ........ 100 - + ........ + ........ 10 - + ........ +---+---+---+---+---+---+ 10 20 30 40 50 60 70 (Hematocrit %) (Contributions To Nephrology 1988:66:54-62) Decreased erythropoietin concentrations with an elevated hematocrit are observed in patients with polycythemia rubra vera, and with a decreased hematocrit in patients with HIV infection who are receiving AZT. Patients on AZT who have anemia and erythropoietin concentrations of less than or equal to 500 mU/mL may benefit from therapy with recombinant EPO ([facility] [id number],1989). Performed By: [facility] [address] [place] [address] [employer]: Lalo Mortensen MD, PhD CLIA Number: [id number] Blood Venipuncture / Unknown 12/07/2024 3:59 AM EDT 12/07/2024 4:11 AM EDT us Ariel Mills MD LAB BLOOD ORDERABLES Final Res ult [employer] [address] [place] [address], [facility] [phone] * Ammonia (12/07/2024 3:59 AM EDT) Ammonia 44 18 - 72 mol/L 12/07/2024 4:37 AM EDT [facility] Blood Venipuncture / Unknown 12/07/2024 3:59 AM EDT 12/07/2024 4:22 AM EDT us Timothy Bai MD LAB BLOOD ORDERABLES Final Result [facility] [address] [place] [id number] [phone] * (ABNORMAL) Comprehensive Metabolic Panel (12/07/2024 3:59 AM EDT) Sodium 146(H) 136 - 145 meq/L 12/07/2024 4:52 AM EDT [facility] Potassium 3.8 3.4 - 5.1 meq/L 12/07/2024 4:52 AM EDT [facility] Chloride 118(H) 98 - 112 meq/L 12/07/2024 4:52 AM EDT [facility] CO2 20(L) 22 - 29 meq/L 12/07/2024 4:52 AM EDT [facility] Calcium 8.4 8.4 - 10.2 mg/dL 12/07/2024 4:52 AM EDT [facility] Glucose 166(H) 82 - 115 mg/dL 12/07/2024 4:52 AM EDT [facility] BUN 72.9(H) 9.8 - 20.1 mg/dL 12/07/2024 4:52 AM EDT [facility] Creatinine 3.13(H) 0.57 - 1.11 mg/dL 12/07/2024 4:52 AM EDT [facility] BUN/Creatinine 23(H) 8 - 20 12/07/2024 4:52 AM EDT [facility] eGFR (mL/min/1.73m2) 16(L) >=60 mL/min/1. 73m2 12/07/2024 4:52 AM EDT [facility] Albumin 4.1 3.5 - 5.0 g/dL 12/07/2024 4:52 AM EDT [facility] Alkaline Phosphatase 48 40 - 150 U/L 12/07/2024 4:52 AM EDT [facility] ALT 9 <=34 U/L 12/07/2024 4:52 AM EDT [facility] Comment: ALT2 reagent used for testing does not contain P5P supplementation and therefore may miss ALT elevations in patients with B6 deficiency. This population may be as high as 10% in the [place], with risk factors including malabsorption, drug interactions, and alcoholic hepatitis. AST 24 11 - 34 U/L 12/07/2024 4:52 AM EDT [facility] Comment: AST2 reagent used for testing does not contain P5P supplementation and therefore may miss AST elevations in patients with B6 deficiency. This population may be as high as 10% in the [place], with risk factors including malabsorption, drug interactions, and alcoholic hepatitis. Total Bilirubin 0.9 0.2 - 1.2 mg/dL 12/07/2024 4:52 AM EDT [facility] Protein, Total 6.4 6.4 - 8.3 g/dL 12/07/2024 4:52 AM EDT [facility] Globulin 2.3(L) 2.5 - 4.1 g/dL 12/07/2024 4:52 AM EDT [facility] Anion Gap 12 4 - 12 12/07/2024 4:52 AM EDT [facility] A/G Ratio 1.8 0.7 - 1.9 12/07/2024 4:52 AM EDT [facility] Osmolality Calc 315.8 mOsm/kg 4:52 AM EDT [facility] Blood Venipuncture / Unknown 12/07/2024 3:59 AM EDT 12/07/2024 4:09 AM EDT us Timothy Bai MD LAB BLOOD ORDERABLES Final Result [facility] [address] [phone] * Magnesium (12/07/2024 3:59 AM EDT) Magnesium 2.4 1.6 - 2.6 mg/dL 12/07/2024 4:52 AM EDT [facility] Blood Venipuncture / Unknown 12/07/2024 3:59 AM EDT 12/07/2024 4:09 AM EDT us Timothy Bai MD LAB BLOOD ORDERABLES Final Result [facility] [address] [phone] * (ABNORMAL) CBC - Hemogram (SJ-BKR) (12/07/2024 3:59 AM EDT) WBC 3.5(L) 4.0 - 10.0 K/ L 12/07/2024 4:31 AM EDT [facility] RBC 2.58(L) 3.93 - 5.22 M/ L 12/07/2024 4:31 AM EDT [facility] Hemoglobin 7.9(L) 11.2 - 15.7 GM/DL 12/07/2024 4:31 AM EDT [facility] Hematocrit 25.6(L) 34.1 - 44.9 % 12/07/2024 4:31 AM EDT [facility] MCV 99(H) 79 - 95 fL 12/07/2024 4:31 AM EDT [facility] MCH 30.6 25.6 - 32.2 pg 12/07/2024 4:31 AM EDT [facility] MCHC 30.9(L) 32.2 - 35.5 GM/DL 12/07/2024 4:31 AM EDT [facility] RDW 17.4(H) 11.7 - 14.4 % 12/07/2024 4:31 AM EDT [facility] Platelets 54(L) 140 - 375 K/CU MM 12/07/2024 4:31 AM EDT [facility] MPV 12.2 9.4 - 12.3 fL 12/07/2024 4:31 AM EDT [facility] Blood Venipuncture / Unknown 12/07/2024 3:59 AM EDT 12/07/2024 4:09 AM EDT Timothy Bai MD LAB BLOOD ORDERABLES Final Result [facility] [address] [phone] * (ABNORMAL) Glucose, Nova Meter (12/06/2024 7:26 PM EDT) POC-GLUCOSE 170(H) 70 - 110 mg/dL 12/06/2024 7:27 PM EDT [facility] Comment: In the event of poor peripheral blood flow, venous or arterial blood should be used due to the potential of erroneous results. Notified Nurse [facility]BV Laboratory Scientist [phone] 12/06/2024 7:27 PM EDT [facility] Blood WHOLE BLOOD / Unknown 12/06/2024 7:26 PM EDT 12/06/2024 7:27 PM EDT Narrative [facility] - 12/06/2024 7:27 PM EDT Laboratory Scientist ID is - [id number] Mary Carmen Mcfadden MD POINT OF CARE TEST ORDERABLES F inal Result Performing Organization Address [facility] Co de Phone Number [facility] [address] [phone] * (ABNORMAL) Glucose, Nova Meter (12/06/2024 4:06 PM EDT) POC-GLUCOSE 134(H) 70 - 110 mg/dL 12/06/2024 4:07 PM EDT [facility] Comment: In the event of poor peripheral blood flow, venous or arterial blood should be used due to the potential of erroneous results. Notified Nurse [facility]BV Laboratory Scientist [id number] 12/06/2024 4:07 PM EDT [facility] Blood WHOLE BLOOD / Unknown 12/06/2024 4:06 PM EDT 12/06/2024 4:07 PM EDT Narrative [facility] - 12/06/2024 4:07 PM EDT Laboratory Scientist ID is - [id number] us Mary Carmen Mcfadden MD POINT OF CARE TEST ORDERABLES F inal Result Performing Organization Address City/[facility] Co de Phone Number [facility] [address] [phone] * ECG 12 lead (12/06/2024 1:16 PM EDT) [facility] VENTRICULAR RATE EKG/MIN 90 BPM GE MUSE ATRIAL RATE (MCT) 90 BPM GE MUSE MI Interval 142 ms GE MUSE QRS-INTERVAL (MSEC) 92 ms GE MUSE QT Interval 378 ms GE MUSE QTC Interval 462 ms GE MUSE P [place] 28 degrees GE MUSE R AXIS (MCT) -4 degrees GE MUSE T Wave [place] 21 degrees GE MUSE [place] Diagnosis Normal sinus rhythm Septal infarct , age undetermined Confirmed by DEYSI FOSS M.D. ([id number]) on 12/07/2024 7:40:21 PM GE MUSE 12/06/2024 1:16 PM EDT 12/07/2024 7:40 PM EDT us Deysi Foss MD ECG ORDERABLES Final Result Performing Organization Address [facility] Phone Number GE MUSE * (ABNORMAL) Glucose, Nova Meter (12/06/2024 10:36 AM EDT) [facility] POC-GLUCOSE 150(H) 70 - 110 mg/dL 12/06/2024 10:37 AM EDT [facility] Comment: In the event of poor peripheral blood flow, venous or arterial blood should be used due to the potential of erroneous results. Notified Nurse RBV Laboratory Scientist [phone] 12/06/2024 10:37 AM EDT [facility] Blood WHOLE BLOOD / Unknown 12/06/2024 10:36 AM EDT 12/06/2024 10:37 AM EDT Narrative [facility] - 12/06/2024 10:37 AM EDT Laboratory Scientist ID is - [id number] us Mary Carmen Mcfadden MD POINT OF CARE TEST ORDERABLES F inal Result Performing Organization Address [facility] Co de Phone Number [facility] [address] [phone] * XR chest AP portable (12/06/2024 7:34 AM EDT) Anatomical Region Laterality Modality Chest X-Ray 12/06/2024 9:43 AM EDT Impressions 12/06/2024 1:19 PM EDT Pulmonary edema. Images reviewed, interpreted, and dictated by Dr. Mike Pichardo. Transcribed by Sandra Ramsey PA-C. Narrative 12/06/2024 1:19 PM EDT PORTABLE CHEST; HISTORY: Respiratory failure. COMPARISON: December 04, 2024. FINDINGS: The heart is normal in size. The mediastinum is unremarkable there is pulmonary edema. There is no pneumothorax. The osseous structures or anterior cervical fusion in the lower cervical spine. Procedure Note Mike Pichardo MD - 12/06/2024 PORTABLE CHEST; HISTORY: Respiratory failure. COMPARISON: December 04, 2024. FINDINGS: The heart is normal in size. The mediastinum is unremarkable there is pulmonary edema. There is no pneumothorax. The osseous structures or anterior cervical fusion in the lower cervical spine. IMPRESSION: Pulmonary edema. Images reviewed, interpreted, and dictated by Dr. Mike Pichardo. Transcribed by Sandra Ramsey PA-C. us Blanka Malagon MD IMG DIAGNOSTIC IMAGING ORDERA BLES Final Result * (ABNORMAL) Glucose, Nova Meter (12/06/2024 5:26 AM EDT) POC-GLUCOSE 143(H) 70 - 110 mg/dL 12/06/2024 5:27 AM EDT [facility] Comment: In the event of poor peripheral blood flow, venous or arterial blood should be used due to the potential of erroneous results. Notified Nurse RBV Laboratory Scientist [phone] 12/06/2024 5:27 AM EDT [facility] Blood WHOLE BLOOD / Unknown 12/06/2024 5:26 AM EDT 12/06/2024 5:27 AM EDT Narrative [facility] - 12/06/2024 5:27 AM EDT Laboratory Scientist ID is - [id number] us Timothy Bai MD POINT OF CARE TEST ORDERAB LES Final Result Performing Organization Address [facility]/ZIP Co de Phone Number [facility] [address] [phone] * (ABNORMAL) Ferritin (12/06/2024 3:13 AM EDT) Ferritin 256.82(H) 4.63 - 204.00 ng/mL 12/06/2024 8:25 AM EDT [facility] Blood Venipuncture / Unknown 12/06/2024 3:13 AM EDT 12/06/2024 3:50 AM EDT us Ariel Mills MD LAB BLOOD ORDERABLES Final Res ult Performing Organization Address [facility]/ZIP Co de Phone Number [facility] [address] [phone] * Ammonia (12/06/2024 3:13 AM EDT) Ammonia 47 18 - 72 mol/L 12/06/2024 4:48 AM EDT [facility] Blood Venipuncture / Unknown 12/06/2024 3:13 AM EDT 12/06/2024 3:51 AM EDT us Timothy Bai MD LAB BLOOD ORDERABLES Final Result Performing Organization Address [facility]/ZIP Co de Phone Number [facility] [address] [phone] * (ABNORMAL) Comprehensive Metabolic Panel (12/06/2024 3:13 AM EDT) Sodium 146(H) 136 - 145 meq/L 12/06/2024 4:26 AM EDT [facility] Potassium 3.9 3.4 - 5.1 meq/L 12/06/2024 4:26 AM EDT [facility] Chloride 116(H) 98 - 112 meq/L 12/06/2024 4:[facility] CO2 20(L) 22 - 29 meq/L 12/06/2024 4:26 AM [facility] Calcium 8.6 8.4 - 10.2 mg/dL 12/06/2024 4:26 AM [facility] Glucose 149(H) 82 - 115 mg/dL 12/06/2024 4:26 AM [facility] BUN 63.3(H) 9.8 - 20.1 mg/dL 12/06/2024 4:26 AM [facility] Creatinine 3.37(H) 0.57 - 1.11 mg/dL 12/06/2024 4:26 AM [facility] BUN/Creatinine 19 8 - 20 12/06/2024 4:26 AM [facility] eGFR (mL/min/1.73m2) 15(L) >=60 mL/min/1. 73m2 12/06/2024 4:26 AM [facility] Albumin 4.6 3.5 - 5.0 g/dL 12/06/2024 4:26 AM [facility] Alkaline Phosphatase 47 40 - 150 U/L 12/06/2024 4:26 AM [facility] ALT 11 <=34 U/L 12/06/2024 4:26 AM [facility] Comment: ALT2 reagent used for testing does not contain P5P supplementation and therefore may miss ALT elevations in patients with B6 deficiency. This population may be as high as 10% in the [place], with risk factors including malabsorption, drug interactions, and alcoholic hepatitis. AST 21 11 - 34 U/L 12/06/2024 4:26 AM [facility] Comment: AST2 reagent used for testing does not contain P5P supplementation and therefore may miss AST elevations in patients with B6 deficiency. This population may be as high as 10% in the [place], with risk factors including malabsorption, drug interactions, and alcoholic hepatitis. Total Bilirubin 1.2 0.2 - 1.2 mg/dL 12/06/2024 4:26 AM [facility] Protein, Total 7.0 6.4 - 8.3 g/dL 12/06/2024 4:26 AM [facility] Globulin 2.4(L) 2.5 - 4.1 g/dL 12/06/2024 4:26 AM EDT [facility] Anion Gap 14(H) 4 - 12 12/06/2024 4:26 AM EDT [facility] A/G Ratio 1.9 0.7 - 1.9 12/06/2024 4:26 AM EDT [facility] Osmolality Calc 311.4 mOsm/kg 4:26 AM EDT [facility] Blood Venipuncture / Unknown 12/06/2024 3:13 AM EDT 12/06/2024 3:50 AM EDT Timothy aBi MD LAB BLOOD ORDERABLES Final Result Performing Organization Address City/[facility]/ZIP Co de Phone Number [facility] [address] [phone] * Magnesium (12/06/2024 3:13 AM EDT) Magnesium 2.4 1.6 - 2.6 mg/dL 12/06/2024 4:26 AM EDT [facility] Blood Venipuncture / Unknown 12/06/2024 3:13 AM EDT 12/06/2024 3:50 AM EDT Timothy Bai MD LAB BLOOD ORDERABLES Final Result [facility] [address] [phone] * (ABNORMAL) CBC - Hemogram (SJ-BKR) (12/06/2024 3:13 AM EDT) WBC 7.0 4.0 - 10.0 K/ L 12/06/2024 4:10 AM EDT [facility] RBC 2.83(L) 3.93 - 5.22 M/ L 12/06/2024 4:10 AM EDT [facility] Hemoglobin 8.7(L) 11.2 - 15.7 GM/DL 12/06/2024 4:10 AM EDT [facility] Hematocrit 28.2(L) 34.1 - 44.9 % 12/06/2024 4:10 AM EDT [facility] MCV 100(H) 79 - 95 fL 12/06/2024 4:10 AM EDT [facility] MCH 30.7 25.6 - 32.2 pg 12/06/2024 4:10 AM EDT [facility] MCHC 30.9(L) 32.2 - 35.5 GM/DL 12/06/2024 4:10 AM EDT [facility] RDW 17.2(H) 11.7 - 14.4 % 12/06/2024 4:10 AM EDT [facility] Platelets 80(L) 140 - 375 K/CU MM 12/06/2024 4:10 AM EDT [facility] MPV 11.7 9.4 - 12.3 fL 12/06/2024 4:10 AM EDT [facility] Blood Venipuncture / Unknown 12/06/2024 3:13 AM EDT 12/06/2024 3:53 AM EDT us Timothy Bai MD LAB BLOOD ORDERABLES Final Result [facility] [address] [phone] * (ABNORMAL) Glucose, Nova Meter (12/05/2024 7:21 PM EDT) Pathologist [facility] POC-GLUCOSE 145(H) 70 - 110 mg/dL 12/05/2024 7:22 PM EDT [facility] Comment: In the event of poor peripheral blood flow, venous or arterial blood should be used due to the potential of erroneous results. Notified Nurse RBV Laboratory Scientist [phone] 12/05/2024 7:22 PM EDT [facility] Blood WHOLE BLOOD / Unknown 12/05/2024 7:21 PM EDT 12/05/2024 7:22 PM EDT Narrative [facility] - 12/05/2024 7:22 PM EDT Laboratory Scientist ID is - [id number] Timothy Bai MD POINT OF CARE TEST ORDERAB LES Final Result Performing Organization Address City/[facility]/ZIP Co de Phone Number [facility] [address] [phone] * (ABNORMAL) Glucose, Nova Meter (12/05/2024 5:01 PM EDT) POC-GLUCOSE 140(H) 70 - 110 mg/dL 12/05/2024 5:02 PM EDT [facility] Comment: In the event of poor peripheral blood flow, venous or arterial blood should be used due to the potential of erroneous results. Notified Nurse RBV Laboratory Scientist [phone] 12/05/2024 5:02 PM EDT [facility] Blood WHOLE BLOOD / Unknown 12/05/2024 5:01 PM EDT 12/05/2024 5:02 PM EDT Narrative [facility] - 12/05/2024 5:02 PM EDT Laboratory Scientist ID is - [id number] us Timothy Bai MD POINT OF CARE TEST ORDERAB LES Final Result Performing Organization Address [facility]/ZIP Co de Phone Number [facility] [address] [phone] * (ABNORMAL) Hemoglobin (12/05/2024 3:36 PM EDT) Pathologist [facility] Hemoglobin 8.1(L) 11.2 - 15.7 GM/DL 12/05/2024 3:57 PM EDT [facility] Blood Venipuncture / Unknown 12/05/2024 3:36 PM EDT 12/05/2024 3:47 PM EDT Timothy Bai MD LAB BLOOD ORDERABLES Final Result [facility] [address] [phone] * (ABNORMAL) Glucose, Nova Meter (12/05/2024 10:23 AM EDT) POC-GLUCOSE 141(H) 70 - 110 mg/dL 12/05/2024 10:24 AM EDT [facility] Comment: In the event of poor peripheral blood flow, venous or arterial blood should be used due to the potential of erroneous results. Notified Nurse RBV Protocols Followed Laboratory Scientist [id number] 12/05/2024 10:24 AM EDT [facility] Blood WHOLE BLOOD / Unknown 12/05/2024 10:23 AM EDT 12/05/2024 10:24 AM EDT Narrative [facility] - 12/05/2024 10:24 AM EDT Laboratory Scientist ID is - [id number] Timothy Bai MD POINT OF CARE TEST ORDERAB LES Final Result Performing Organization Address [facility] Co de Phone Number [facility] [address] [phone] * (ABNORMAL) Glucose, Nova Meter (12/05/2024 8:10 AM EDT) POC-GLUCOSE 123(H) 70 - 110 mg/dL 12/05/2024 8:27 AM EDT [facility] Comment: In the event of poor peripheral blood flow, venous or arterial blood should be used due to the potential of erroneous results. Notified Nurse RBV Laboratory Scientist [phone] 12/05/2024 8:27 AM EDT [facility] Blood WHOLE BLOOD / Unknown 12/05/2024 8:10 AM EDT 12/05/2024 8:27 AM EDT Narrative [facility] - 12/05/2024 8:27 AM EDT Laboratory Scientist ID is - [id number] us Timothy Bai MD POINT OF CARE TEST ORDERAB LES Final Result Performing Organization Address [facility] Co de Phone Number [facility] [address] [phone] * (ABNORMAL) Hemoglobin (12/05/2024 8:00 AM EDT) Hemoglobin 8.2(L) 11.2 - 15.7 GM/DL 12/05/2024 8:21 AM EDT [facility] Blood Venipuncture / Unknown 12/05/2024 8:00 AM EDT 12/05/2024 8:06 AM EDT Timothy Bai MD LAB BLOOD ORDERABLES Final Result [facility] [address] [phone] * Ammonia (12/05/2024 3:20 AM EDT) Pathologist [facility] Ammonia 41 18 - 72 mol/L 12/05/2024 4:02 AM EDT [facility] Blood Venipuncture / Unknown 12/05/2024 3:20 AM EDT 12/05/2024 3:24 AM EDT Timothy Bai MD LAB BLOOD ORDERABLES Final Result [facility] [address] [phone] * (ABNORMAL) Comprehensive Metabolic Panel (12/05/2024 3:20 AM EDT) Sodium 146(H) 136 - 145 meq/L 12/05/2024 4:11 AM EDT [facility] Potassium 3.6 3.4 - 5.1 meq/L 12/05/2024 4:11 AM EDT [facility] Chloride 117(H) 98 - 112 meq/L 12/05/2024 4:11 AM EDT [facility] CO2 20(L) 22 - 29 meq/L 12/05/2024 4:11 AM EDT [facility] Calcium 8.3(L) 8.4 - 10.2 mg/dL 12/05/2024 4:11 AM [facility] Glucose 148(H) 82 - 115 mg/dL 12/05/2024 4:11 AM [facility] BUN 59.4(H) 9.8 - 20.1 mg/dL 12/05/2024 4:11 AM [facility] Creatinine 3.14(H) 0.57 - 1.11 mg/dL 12/05/2024 4:11 AM [facility] BUN/Creatinine 19 8 - 20 12/05/2024 4:11 AM [facility] eGFR (mL/min/1.73m2) 16(L) >=60 mL/min/1. 73m2 12/05/2024 4:11 AM [facility] Albumin 4.3 3.5 - 5.0 g/dL 12/05/2024 4:11 AM [facility] Alkaline Phosphatase 44 40 - 150 U/L 12/05/2024 4:11 AM [facility] ALT 8 <=34 U/L 12/05/2024 4:11 AM [facility] Comment: ALT2 reagent used for testing does not contain P5P supplementation and therefore may miss ALT elevations in patients with B6 deficiency. This population may be as high as 10% in the [place], with risk factors including malabsorption, drug interactions, and alcoholic hepatitis. AST 23 11 - 34 U/L 12/05/2024 4:11 AM [facility] Comment: AST2 reagent used for testing does not contain P5P supplementation and therefore may miss AST elevations in patients with B6 deficiency. This population may be as high as 10% in the [place], with risk factors including malabsorption, drug interactions, and alcoholic hepatitis. Total Bilirubin 1.2 0.2 - 1.2 mg/dL 12/05/2024 4:11 AM [facility] Protein, Total 6.4 6.4 - 8.3 g/dL 12/05/2024 4:11 AM [facility] Globulin 2.1(L) 2.5 - 4.1 g/dL 12/05/2024 4:11 AM [facility] Anion Gap 13(H) 4 - 12 12/05/2024 4:11 AM EDT [facility] A/G Ratio 2.0(H) 0.7 - 1.9 12/05/2024 4:11 AM EDT [facility] Osmolality Calc 310.0 mOsm/kg 4:11 AM EDT [facility] Blood Venipuncture / Unknown 12/05/2024 3:20 AM EDT 12/05/2024 3:24 AM EDT Timothy Bai MD LAB BLOOD ORDERABLES Final Result Performing Organization Address [facility]/ZIP Co de Phone Number [facility] [address] [phone] * Magnesium (12/05/2024 3:20 AM EDT) Magnesium 2.3 1.6 - 2.6 mg/dL 12/05/2024 4:11 AM EDT [facility] Blood Venipuncture / Unknown 12/05/2024 3:20 AM EDT 12/05/2024 3:24 AM EDT Timothy Bai MD LAB BLOOD ORDERABLES Final Result Performing Organization Address [facility]/ZIP Co de Phone Number [facility] [address] [phone] * (ABNORMAL) CBC - Hemogram (SJ-BKR) (12/05/2024 3:20 AM EDT) WBC 4.2 4.0 - 10.0 K/ L 12/05/2024 3:34 AM EDT [facility] RBC 2.64(L) 3.93 - 5.22 M/ L 12/05/2024 3:34 AM EDT [facility] Hemoglobin 8.2(L) 11.2 - 15.7 GM/DL 12/05/2024 3:34 AM EDT [facility] Hematocrit 25.9(L) 34.1 - 44.9 % 12/05/2024 3:34 AM EDT [facility] MCV 98(H) 79 - 95 fL 12/05/2024 3:34 AM EDT [facility] MCH 31.1 25.6 - 32.2 pg 12/05/2024 3:34 AM EDT [facility] MCHC 31.7(L) 32.2 - 35.5 GM/DL 12/05/2024 3:34 AM EDT [facility] RDW 17.1(H) 11.7 - 14.4 % 12/05/2024 3:34 AM EDT [facility] Platelets 60(L) 140 - 375 K/CU MM 12/05/2024 3:34 AM EDT [facility] MPV 11.3 9.4 - 12.3 fL 12/05/2024 3:34 AM EDT [facility] Blood Venipuncture / Unknown 12/05/2024 3:20 AM EDT 12/05/2024 3:24 AM EDT Timothy Bai MD LAB BLOOD ORDERABLES Final Result [facility] [address] [phone] * (ABNORMAL) Hemoglobin (12/04/2024 11:54 PM EDT) Hemoglobin 8.7(L) 11.2 - 15.7 GM/DL 12/05/2024 12:07 AM EDT [facility] Blood Venipuncture / Unknown 12/04/2024 11:54 PM EDT 12/04/2024 11:59 PM EDT Timothy Bai MD LAB BLOOD ORDERABLES Final Result [facility] [address] [phone] * (ABNORMAL) Glucose, Nova Meter (12/04/2024 10:20 PM EDT) POC-GLUCOSE 147(H) 70 - 110 mg/dL 12/04/2024 10:22 PM EDT [facility] Comment: In the event of poor peripheral blood flow, venous or arterial blood should be used due to the potential of erroneous results. Protocols Followed Laboratory Scientist [id number] 12/04/2024 10:22 PM EDT [facility] Blood WHOLE BLOOD / Unknown 12/04/2024 10:20 PM EDT 12/04/2024 10:21 PM EDT Narrative [facility] - 12/04/2024 10:22 PM EDT Laboratory Scientist ID is - [id number] Timothy Bai MD POINT OF CARE TEST ORDERAB LES Final Result Performing Organization Address City/[facility]/ZIP Co de Phone Number [facility] [address] [phone] * ECG 12 lead (12/04/2024 8:08 PM EDT) SYSTOLIC BLOOD PRESSURE (MCT) 133 mmHg GE MUSE DIASTOLIC BLOOD PRESSURE (MCT) 61 mmHg GE MUSE VENTRICULAR RATE EKG/MIN 85 BPM GE MUSE ATRIAL RATE (MCT) 85 BPM GE MUSE MI Interval 140 ms GE MUSE QRS-INTERVAL (MSEC) 94 ms GE MUSE QT Interval 426 ms GE MUSE QTC Interval 506 ms GE MUSE P [place] 44 degrees GE MUSE R AXIS (MCT) 27 degrees GE MUSE T Wave [place] -27 degrees GE MUSE [place] Diagnosis Normal sinus rhythm Nonspecific T wave abnormality Abnormal ECG Confirmed by DEYSI FOSS M.D. ([id number]) on 12/05/2024 1:52:09 PM GE MUSE 12/04/2024 8:08 PM EDT 12/05/2024 1:52 PM EDT Timothy Bai MD ECG ORDERABLES Final Resu lt Performing Organization Address City/[facility]/ZIP Co de Phone Number GE MUSE * (ABNORMAL) Glucose, Nova Meter (12/04/2024 4:50 PM EDT) POC-GLUCOSE 137(H) 70 - 110 mg/dL 12/04/2024 4:51 PM EDT [facility] Comment: In the event of poor peripheral blood flow, venous or arterial blood should be used due to the potential of erroneous results. Protocols Followed Laboratory Scientist [id number] 12/04/2024 4:51 PM EDT [facility] Blood WHOLE BLOOD / Unknown 12/04/2024 4:50 PM EDT 12/04/2024 4:51 PM EDT Narrative [facility] - 12/04/2024 4:51 PM EDT Laboratory Scientist ID is - [id number] us Timothy Bai MD POINT OF CARE TEST ORDERAB LES Final Result Performing Organization Address City/[facility]/ZIP Co de Phone Number [facility] [address] [phone] * (ABNORMAL) Hemoglobin (12/04/2024 4:27 PM EDT) Hemoglobin 8.9(L) 11.2 - 15.7 GM/DL 12/04/2024 4:36 PM EDT [facility] Blood Venipuncture / Unknown 12/04/2024 4:27 PM EDT 12/04/2024 4:31 PM EDT Timothy Bai MD LAB BLOOD ORDERABLES Final Result Performing Organization Address City/[facility]/ZIP Co de Phone Number [facility] [address] [phone] * (ABNORMAL) Basic Metabolic Panel (12/04/2024 10:53 AM EDT) Sodium 146(H) 136 - 145 meq/L 12/04/2024 11:17 AM EDT [facility] Potassium 3.6 3.4 - 5.1 meq/L 12/04/2024 11:17 AM EDT [facility] CO2 20(L) 22 - 29 meq/L 12/04/2024 11:17 AM EDT [facility] Chloride 116(H) 98 - 112 meq/L 12/04/2024 11:17 AM EDT [facility] Glucose 137(H) 82 - 115 mg/dL 12/04/2024 11:17 AM EDT [facility] BUN 61.1(H) 9.8 - 20.1 mg/dL 12/04/2024 11:17 AM EDT [facility] Creatinine 3.38(H) 0.57 - 1.11 mg/dL 12/04/2024 11:17 AM EDT [facility] BUN/Creatinine 18 8 - 20 12/04/2024 11:17 AM EDT [facility] Calcium 8.5 8.4 - 10.2 mg/dL 12/04/2024 11:17 AM [facility] Anion Gap 14(H) 4 - 12 12/04/2024 11:17 AM [facility] eGFR (mL/min/1.73m2) 15(L) >=60 mL/min/1.7 3m2 12/04/2024 11:17 AM [facility] Osmolality Calc 310.0 mOsm/kg 11:17 AM [facility] Blood Venipuncture / Unknown 12/04/2024 10:53 AM EDT 12/04/2024 10:57 AM EDT us Timothy Bai MD LAB BLOOD ORDERABLES Final Result Performing Organization Address City/State/[facility] Co de Phone Number [facility] [address] [phone] * (ABNORMAL) Glucose, Nova Meter (12/04/2024 10:52 AM EDT) POC-GLUCOSE 136(H) 70 - 110 mg/dL 12/04/2024 10:57 AM EDT [facility] Comment: In the event of poor peripheral blood flow, venous or arterial blood should be used due to the potential of erroneous results. Notified Nurse RBV Laboratory Scientist [id number] 12/04/2024 10:57 AM EDT [facility] Blood WHOLE BLOOD / Unknown 12/04/2024 10:52 AM EDT 12/04/2024 10:57 AM EDT Narrative [facility] - 12/04/2024 10:57 AM EDT Laboratory Scientist ID is - [id number] us Timothy Bai MD POINT OF CARE TEST ORDERAB LES Final Result [facility] [address] [phone] * (ABNORMAL) CBC with automated diff (12/04/2024 8:15 AM EDT) WBC 4.1 4.0 - 10.0 K/ L 12/04/2024 9:56 AM EDT [facility] RBC 2.90(L) 3.93 - 5.22 M/ L 12/04/2024 9:56 AM EDT [facility] Hemoglobin 8.8(L) 11.2 - 15.7 GM/DL 12/04/2024 9:56 AM EDT [facility] Hematocrit 29.0(L) 34.1 - 44.9 % 12/04/2024 9:56 AM EDT [facility] MCV 100(H) 79 - 95 fL 12/04/2024 9:56 AM EDT [facility] MCH 30.3 25.6 - 32.2 pg 12/04/2024 9:56 AM EDT [facility] MCHC 30.3(L) 32.2 - 35.5 GM/DL 12/04/2024 9:56 AM EDT [facility] RDW 17.7(H) 11.7 - 14.4 % 12/04/2024 9:56 AM EDT [facility] Platelets 65(L) 140 - 375 K/CU MM 12/04/2024 9:56 AM EDT [facility] MPV 10.8 9.4 - 12.3 fL 12/04/2024 9:56 AM EDT [facility] % Neutros 79(H) 34 - 71 % 12/04/2024 9:[facility] % Lymphs 12(L) 19 - 52 % 12/04/2024 9:56 AM EDT [facility] % Monos 9 5 - 13 % 12/04/2024 9:56 AM EDT [facility] % Eos 0(L) 1 - 6 % 12/04/2024 9:56 AM EDT [facility] % Baso 0 0 - 1 % 12/04/2024 9:56 AM EDT [facility] NRBC Absolute <0.01 0 - 0.012 K/ul 12/04/2024 9:56 AM EDT [facility] # Neutros 3.25 1.56 - 6.13 K/ L 12/04/2024 9:56 AM EDT [facility] # Lymphs 0.48(L) 1.18 - 3.74 K/ L 12/04/2024 9:56 AM EDT [facility] # Monos 0.35 0.24 - 0.86 K/ L 12/04/2024 9:56 AM EDT [facility] # Eos <0.03(L) 0.04 - 0.36 K/ L 12/04/2024 9:56 AM T [facility] # Baso <0.03 0.01 - 0.08 K/ L 12/04/2024 9:56 AM EDT [facility] Immature Granulocytes-Re lative 0.50(H) 0.01 - 0.43 % 12/04/2024 9:56 AM [facility] # IG <0.03 0.00 - 0.03 K/uL 12/04/2024 9:56 AM T [facility] Blood Venipuncture / Unknown 12/04/2024 8:15 AM EDT 12/04/2024 8:32 AM EDT Narrative [facility] - 12/04/2024 9:56 AM EDT When CBC w/ Auto Diff is ordered the lab will add a Manual Differential as a quality check at no additional charge if: Lymphocytes greater than seventy five percent with normal or increased WBC Monocytes greater than Fifteen percent Basophil greater than four percent Bands >10% or several immature myeloids are seen on scan Blast? Flag noted Atypical Lymph flag noted Timothy Bai MD LAB BLOOD ORDERABLES Final Result Performing Organization Address City/[facility]/ZIP Co de Phone Number [facility] [address] [phone] * (ABNORMAL) Hemoglobin (12/04/2024 8:15 AM EDT) Pathologist [facility] Hemoglobin 9.0(L) 11.2 - 15.7 GM/DL 12/04/2024 8:36 AM EDT [facility] Blood Venipuncture / Unknown 12/04/2024 8:15 AM EDT 12/04/2024 8:32 AM EDT Timothy Bai MD LAB BLOOD ORDERABLES Final Result Performing Organization Address [facility] Co de Phone Number [facility] [address] [phone] * ANCA Vasculitis Profile(SENDOUT) (12/04/2024 8:15 AM EDT) Pathologist [facility] Myeloperoxidase (MPO) Ab, IgG 0 0 - 19 AU/mL 12/07/2024 8:52 AM EDT [facility] Comment: INTERPRETIVE INFORMATION: Myeloperoxidase Abs, IgG 19 AU/mL or Less ......... Negative 20-25 AU/mL .............. Equivocal 26 AU/mL or Greater ...... Positive Approximately 90% of patients with a P-ANCA pattern by IFA have antibodies specific for MPO. Serine Proteinase 3 (PR3) Ab, IgG 0 0 - 19 AU/mL 12/07/2024 8:52 AM EDT [facility] Comment: INTERPRETIVE INFORMATION: Serine Proteinase 3, IgG 19 AU/mL or Less ........ Negative 20-25 AU/mL ............. Equivocal 26 AU/mL or Greater ..... Positive Approximately 85% of patients with a C-ANCA pattern by IFA have antibodies specific for PR3. ANCA IFA Titer <1:20 <1:20 12/07/2024 8:52 AM EDT [facility] ANCA IFA Pattern None Detected None Detected 12/07/2024 8:52 AM EDT [facility] Comment: INTERPRETIVE INFORMATION: ANCA IFA Pattern Neutrophil Cytoplasmic Antibodies (C-ANCA = granular cytoplasmic staining, P-ANCA = perinuclear staining) are found in the serum of over 90 percent of patients with certain necrotizing systemic vasculitides, and usually in less than 5 percent of patients with collagen vascular disease or arthritis. Performed By: [facility] [employer] [address] [place] [address] Trimmer Meat: Lalo Mortensen MD, PhD CLIA Number: [id number] Blood Venipuncture / Unknown 12/04/2024 8:15 AM EDT 12/04/2024 8:32 AM EDT us Hema Cervantes MD LAB BLOOD ORDERABLES Final Re sult [address] [address], [facility] [phone] * JEANA Reflexive Profile(SENDOUT) (12/04/2024 8:15 AM EDT) Anti-Nuclear Ab (JEANA), IgG by SHARON None Detected None Detected 12/06/2024 3:51 PM EDT [facility] Comment: No Anti-Nuclear Antibodies (JEANA) detected by SHARON. The Extractable Nuclear Antigen Antibodies ([employer], Llanes, SSA 52, SSA 60, Scleroderma, Lilia-1 and SSB) and Double Stranded DNA (dsDNA) Antibody, IgG will not be performed. If suspicion of connective tissue disease is strong, and JEANA is negative by SHARON, consider testing for JEANA by IFA ([id number]). INTERPRETIVE INFORMATION: Anti-Nuclear Antibodies (JEANA), IgG by SHARON Antinuclear Antibodies (JEANA), IgG by SHARON: JEANA specimens are screened using enzyme-linked immunosorbent assay (SHARON) methodology. All SHARON results reported as Detected are further tested by indirect fluorescent assay (IFA) using HEp-2 substrate with an IgG-specific conjugate. The JEANA SHARON screen is designed to detect antibodies against dsDNA, histones, SS-A (Ro), SS-B (La), Llanes, Llanes/[employer], Scl-70, Lilia-1, centromeric proteins, other antigens extracted from the HEp-2 cell nucleus. JEANA SHARON assays have been reported to have lower sensitivities than JEANA IFA for systemic autoimmune rheumatic diseases (SARD). Negative results do not necessarily rule out SARD. Performed By: [facility] [address] [id number] Trimmer Meat: Lalo Mortensen MD, PhD CLIA Number: [id number] Blood Venipuncture / Unknown 12/04/2024 8:15 AM EDT 12/04/2024 8:32 AM EDT us Hema Cervantes MD LAB BLOOD ORDERABLES Final Re sult [facility] [address] [place], [place] [id number], [facility] [phone] * XR chest AP portable (12/04/2024 6:49 AM EDT) Anatomical Region Laterality Modality Chest X-Ray 12/04/2024 9:23 AM EDT Impressions 12/04/2024 2:33 PM EDT Mild interval worsening of vascular engorgement and pulmonary edema. Images reviewed, interpreted, and dictated by Dr. Haseeb Gil. Transcribed by Regina Villasenor PA-C. Narrative 12/04/2024 2:33 PM EDT PORTABLE CHEST HISTORY: Acute shortness of breath. COMPARISON: One day prior. FINDINGS: The heart is mildly enlarged in size, stable. The mediastinum is unremarkable. There has been mild interval worsening of the vascular engorgement and pulmonary edema. There is no pneumothorax. Procedure Note Haseeb Gil MD - 12/04/2024 PORTABLE CHEST HISTORY: Acute shortness of breath. COMPARISON: One day prior. FINDINGS: The heart is mildly enlarged in size, stable. The mediastinum is unremarkable. There has been mild interval worsening of the vascular engorgement and pulmonary edema. There is no pneumothorax. IMPRESSION: Mild interval worsening of vascular engorgement and pulmonary edema. Images reviewed, interpreted, and dictated by Dr. Haseeb Gil. Transcribed by Regina Villasenor PA-C. Kirsty Tuttle ELECTRIC REFRIGERATOR SERVICER IMG DIAGNOSTIC IMAGING ORDER LONNY Final Result * (ABNORMAL) Blood gas, arterial (12/04/2024 6:34 AM EDT) pH, Arterial 7.29(L) 7.35 - 7.45 12/04/2024 7:10 AM EDT [facility] pCO2, Arterial 43 35 - 45 mm Hg 12/04/2024 7:10 AM EDT [facility] pO2, Arterial 106(H) 80 - 100 mm Hg 12/04/2024 7:[facility] HCO3, Arterial 21 20 - 26 mmol/L 12/04/2024 7:10 AM [facility] Base Excess, Arterial -5.2(L) -2.0 - 2.0 mmol/L 12/04/2024 7:10 AM [facility] O2 Sat, Arterial 98.8 95.0 - 100.0 % 12/04/2024 7:10 AM EDT [facility] CTO2 ARTERIAL 11.9 mmol/L 12/04/2024 7:10 AM T [facility] THB ARTERIAL 8.6(L) 12.0 - 18.0 g/dL 12/04/2024 7:10 AM T [facility] SJ COLLECTION SITE Right Brachial 12/04/2024 7:10 AM [facility] Arterial Puncture Yes 12/04/2024 7:10 AM T [facility] Blood Gas O2 Delivery Device Cannula 12/04/2024 7:10 AM T [facility] Oxygen Flow Rate 3 12/05/19 7:10 AM [facility] Blood Gas PT Temperature C 37.0 12/04/2024 7:10 AM [facility] Sen's Test Not Applicable 12/05/19 7:10 AM EDT [facility] Critical Values Notification Critical Blood gas called to DAYANARA MATIAS . Results acknowledged/r ead back to [id number] and confirmed on 12/04/2024 07:09 12/04/2024 7:10 AM EDT [facility] ABG Number of Draw Attempts 1 12/04/2024 7:10 AM EDT [facility] FIO2 12/04/2024 7:10 AM EDT [facility] Blood Gas Temperature Corrected Results No No 12/04/2024 7:10 AM EDT [facility] Blood, Arterial 12/04/2024 6 :34 AM EDT 12/04/2024 7:10 AM EDT us Kirsty Tuttle APRN LAB BLOOD ORDERABLES Final R esult Performing Organization Address [facility]/ZIP Co de Phone Number [facility] [address] [phone] * (ABNORMAL) Glucose, Nova Meter (12/04/2024 6:13 AM EDT) POC-GLUCOSE 155(H) 70 - 110 mg/dL 12/04/2024 6:14 AM EDT [facility] Comment: In the event of poor peripheral blood flow, venous or arterial blood should be used due to the potential of erroneous results. Protocols Followed Laboratory Scientist [id number] 12/04/2024 6:14 AM EDT [facility] Blood WHOLE BLOOD / Unknown 12/04/2024 6:13 AM EDT 12/04/2024 6:14 AM EDT Narrative [facility] - 12/04/2024 6:14 AM EDT Laboratory Scientist ID is - [id number] us Timothy Bai MD POINT OF CARE TEST ORDERAB LES Final Result [facility] [address] [phone] * (ABNORMAL) CBC with automated diff (12/04/2024 3:35 AM EDT) WBC 3.2(L) 4.0 - 10.0 K/ L 12/04/2024 3:55 AM EDT [facility] RBC 2.88(L) 3.93 - 5.22 M/ L 12/04/2024 3:55 AM EDT [facility] Hemoglobin 8.9(L) 11.2 - 15.7 GM/DL 12/04/2024 3:55 AM EDT [facility] Hematocrit 28.4(L) 34.1 - 44.9 % 12/04/2024 3:55 AM EDT [facility] MCV 99(H) 79 - 95 fL 12/04/2024 3:55 AM EDT [facility] MCH 30.9 25.6 - 32.2 pg 12/04/2024 3:55 AM EDT [facility] MCHC 31.3(L) 32.2 - 35.5 GM/DL 12/04/2024 3:55 AM EDT [facility] RDW 17.4(H) 11.7 - 14.4 % 12/04/2024 3:55 AM EDT [facility] Platelets 61(L) 140 - 375 K/CU MM 12/04/2024 3:55 AM EDT [facility] MPV 11.1 9.4 - 12.3 fL 12/04/2024 3:55 AM EDT [facility] % Neutros 80(H) 34 - 71 % 12/04/2024 3:55 AM EDT [facility] % Lymphs 12(L) 19 - 52 % 12/04/2024 3:55 AM EDT [facility] % Monos 8 5 - 13 % 12/04/2024 3:55 AM EDT [facility] % Eos 0(L) 1 - 6 % 12/04/2024 3:55 AM EDT [facility] % Baso 0 0 - 1 % 12/04/2024 3:55 AM EDT [facility] NRBC Absolute <0.01 0 - 0.012 K/ul 12/04/2024 3:55 AM EDT [facility] # Neutros 2.58 1.56 - 6.13 K/ L 12/04/2024 3:55 AM EDT [facility] # Lymphs 0.39(L) 1.18 - 3.74 K/ L 12/04/2024 3:55 AM EDT [facility] # Monos 0.25 0.24 - 0.86 K/ L 12/04/2024 3:55 AM EDT [facility] # Eos <0.03(L) 0.04 - 0.36 K/ L 12/04/2024 3:55 AM EDT [facility] # Baso <0.03 0.01 - 0.08 K/ L 12/04/2024 3:55 AM EDT [facility] Immature Granulocytes-Re lative 0.30 0.01 - 0.43 % 12/04/2024 3:55 AM EDT [facility] # IG <0.03 0.00 - 0.03 K/uL 12/04/2024 3:55 AM EDT [facility] Blood Venipuncture / Unknown 12/04/2024 3:35 AM EDT 12/04/2024 3:41 AM EDT Narrative [facility] - 12/04/2024 3:55 AM EDT When CBC w/ Auto Diff is ordered the lab will add a Manual Differential as a quality check at no additional charge if: Lymphocytes greater than seventy five percent with normal or increased WBC Monocytes greater than Fifteen percent Basophil greater than four percent Bands >10% or several immature myeloids are seen on scan Blast? Flag noted Atypical Lymph flag noted us Kirsty Tuttle APRN LAB BLOOD ORDERABLES Final R esult [facility] [address] [phone] * Ammonia (12/04/2024 3:35 AM EDT) Ammonia 30 18 - 72 mol/L 12/04/2024 3:57 AM EDT [facility] Blood Venipuncture / Unknown 12/04/2024 3:35 AM EDT 12/04/2024 3:41 AM EDT us Timothy Bai MD LAB BLOOD ORDERABLES Final Result [facility] [address] [phone] * Phosphorus (12/04/2024 3:34 AM EDT) Phosphorus 4.2 2.5 - 4.5 mg/dL 12/04/2024 4:04 AM EDT [facility] Blood Venipuncture / Unknown 12/04/2024 3:34 AM EDT 12/04/2024 3:41 AM EDT us Kirsty Tuttle [employer] LAB BLOOD ORDERABLES Final R esult [facility] [address] [phone] * (ABNORMAL) Comprehensive Metabolic Panel (12/04/2024 3:34 AM EDT) Pathologist [facility] Sodium 143 136 - 145 meq/L 12/04/2024 4:04 AM EDT [facility] Potassium 3.7 3.4 - 5.1 meq/L 12/04/2024 4:04 AM EDT [facility] Chloride 115(H) 98 - 112 meq/L 12/04/2024 4:04 AM EDT [facility] CO2 20(L) 22 - 29 meq/L 12/04/2024 4:04 AM EDT [facility] Calcium 8.3(L) 8.4 - 10.2 mg/dL 12/04/2024 4:04 AM EDT [facility] Glucose 203(H) 82 - 115 mg/dL 12/04/2024 4:04 AM EDT [facility] BUN 58.6(H) 9.8 - 20.1 mg/dL 12/04/2024 4:04 AM EDT [facility] Creatinine 3.43(H) 0.57 - 1.11 mg/dL 12/04/2024 4:04 AM EDT [facility] BUN/Creatinine 17 8 - 20 12/04/2024 4:04 AM EDT [facility] eGFR (mL/min/1.73m2) 15(L) >=60 mL/min/1. 73m2 12/04/2024 4:04 AM EDT [facility] Albumin 4.2 3.5 - 5.0 g/dL 12/04/2024 4:04 AM EDT [facility] Alkaline Phosphatase 47 40 - 150 U/L 12/04/2024 4:04 AM EDT [facility] ALT 11 <=34 U/L 12/04/2024 4:04 AM EDT [facility] Comment: ALT2 reagent used for testing does not contain P5P supplementation and therefore may miss ALT elevations in patients with B6 deficiency. This population may be as high as 10% in the [place], with risk factors including malabsorption, drug interactions, and alcoholic hepatitis. AST 21 11 - 34 U/L 12/04/2024 4:04 AM T [facility] Comment: AST2 reagent used for testing does not contain P5P supplementation and therefore may miss AST elevations in patients with B6 deficiency. This population may be as high as 10% in the [place], with risk factors including malabsorption, drug interactions, and alcoholic hepatitis. Total Bilirubin 1.1 0.2 - 1.2 mg/dL 12/04/2024 4:04 AM T [facility] Protein, Total 6.7 6.4 - 8.3 g/dL 12/04/2024 4:04 AM T [facility] Globulin 2.5 2.5 - 4.1 g/dL 12/04/2024 4:04 AM T [facility] Anion Gap 12 4 - 12 12/04/2024 4:04 AM T [facility] A/G Ratio 1.7 0.7 - 1.9 12/04/2024 4:04 AM [facility] Osmolality Calc 307.2 mOsm/kg 4:04 AM [facility] Blood Venipuncture / Unknown 12/04/2024 3:34 AM EDT 12/04/2024 3:41 AM EDT us Timothy Bai MD LAB BLOOD ORDERABLES Final Result [facility] [address] [phone] * Magnesium (12/04/2024 3:34 AM EDT) Magnesium 2.5 1.6 - 2.6 mg/dL 12/04/2024 4:04 AM EDT [facility] Blood Venipuncture / Unknown 12/04/2024 3:34 AM EDT 12/04/2024 3:41 AM EDT us Timothy Bai MD LAB BLOOD ORDERABLES Final Result [facility] [address] [phone] * ECG 12 lead (12/04/2024 3:25 AM EDT) SYSTOLIC BLOOD PRESSURE (MCT) 165 mmHg GE MUSE DIASTOLIC BLOOD PRESSURE (MCT) 77 mmHg GE MUSE VENTRICULAR RATE EKG/MIN 80 BPM GE MUSE ATRIAL RATE (MCT) 80 BPM GE MUSE MI Interval 154 ms GE MUSE QRS-INTERVAL (MSEC) 76 ms GE MUSE QT Interval 380 ms GE MUSE QTC Interval 438 ms GE MUSE P [place] 47 degrees GE MUSE R AXIS (MCT) 44 degrees GE MUSE T Wave [place] -30 degrees GE MUSE Bryan Diagnosis Normal sinus rhythm Low voltage QRS Nonspecific T wave abnormality Confirmed by DEYSI FOSS M.D. ([id number]) on 12/04/2024 11:05:22 AM GE MUSE 12/04/2024 3:25 AM EDT 12/04/2024 11:05 AM EDT us Deysi Foss MD ECG ORDERABLES Final Result GE MUSE * (ABNORMAL) Hemoglobin (12/04/2024 1:04 AM EDT) Hemoglobin 9.0(L) 11.2 - 15.7 GM/DL 12/04/2024 1:30 AM EDT [facility] Blood Venipuncture / Unknown 12/04/2024 1:04 AM EDT 12/04/2024 1:20 AM EDT Timothy Bai MD LAB BLOOD ORDERABLES Final Result [facility] [address] [place] [address], [facility] [phone] * (ABNORMAL) Glucose, Nova Meter (12/03/2024 9:41 PM EDT) POC-GLUCOSE 146(H) 70 - 110 mg/dL 12/03/2024 9:43 PM EDT [facility] Comment: In the event of poor peripheral blood flow, venous or arterial blood should be used due to the potential of erroneous results. Protocols Followed Laboratory Scientist [id number] 12/03/2024 9:43 PM EDT [facility] Blood WHOLE BLOOD / Unknown 12/03/2024 9:41 PM EDT 12/03/2024 9:43 PM EDT Narrative [facility] - 12/03/2024 9:43 PM EDT Laboratory Scientist ID is - [id number] us Timothy Bai MD POINT OF CARE TEST ORDERAB LES Final Result [facility] [address] [place] [address], [facility] [phone] * (ABNORMAL) Glucose, Nova Meter (12/03/2024 5:19 PM EDT) POC-GLUCOSE 146(H) 70 - 110 mg/dL 12/03/2024 5:24 PM EDT [facility] Comment: In the event of poor peripheral blood flow, venous or arterial blood should be used due to the potential of erroneous results. Notified Nurse RBV Laboratory Scientist [id number] 12/03/2024 5:24 PM EDT [facility] Blood WHOLE BLOOD / Unknown 12/03/2024 5:19 PM EDT 12/03/2024 5:24 PM EDT Narrative [facility] - 12/03/2024 5:24 PM EDT Laboratory Scientist ID is - [id number] us Timothy Bai MD POINT OF CARE TEST ORDERAB LES Final Result [facility] [address] [place] [address], [facility] [phone] * XR chest AP portable (12/03/2024 4:45 PM EDT) Anatomical Region Laterality Modality Chest X-Ray 12/03/2024 6:06 PM EDT Impressions 12/03/2024 6:06 PM EDT Interval worsening as above. Continued follow up recommended . Images reviewed, interpreted, and dictated by Jose C Calhoun MD Narrative 12/03/2024 6:06 PM EDT PORTABLE CHEST 12/03/2024 3:53 PM HISTORY: Precordial chest pain. COMPARISON: 3 days prior. FINDINGS: The heart is stable in size . There has been interval worsening in the vascular congestion. There is no pneumothorax . Procedure Note Andry Calhoun MD - 12/03/2024 PORTABLE CHEST 12/03/2024 3:53 PM HISTORY: Precordial chest pain. COMPARISON: 3 days prior. FINDINGS: The heart is stable in size . There has been interval worsening in the vascular congestion. There is no pneumothorax . IMPRESSION: Interval worsening as above. Continued follow up recommended . Images reviewed, interpreted, and dictated by Jose C Calhoun MD us Kirsty Tuttle APRN IMG DIAGNOSTIC IMAGING ORDER LONNY Final Result * ECG 12 lead (12/03/2024 2:16 PM EDT) VENTRICULAR RATE EKG/MIN 136 BPM GE MUSE ATRIAL RATE (MCT) 73 BPM GE MUSE QRS-INTERVAL (MSEC) 88 ms GE MUSE QT Interval 304 ms GE MUSE QTC Interval 457 ms GE MUSE R AXIS (MCT) -11 degrees GE MUSE T Wave [place] -58 degrees GE MUSE Bryan Diagnosis Atrial fibrillation with rapid ventricular response Possible Anterolateral infarct , age undetermined Possible abberancy Confirmed by DEYSI FOSS M.D. ([id number]) on 12/03/2024 5:58:45 PM GE MUSE 12/03/2024 2:16 PM EDT 12/03/2024 5:58 PM EDT Timothy Bai MD ECG ORDERABLES Final Resu lt Performing Organization Address [facility] Co de Phone Number GE MUSE * (ABNORMAL) Glucose, Nova Meter (12/03/2024 10:45 AM EDT) Pathologist [facility] POC-GLUCOSE 156(H) 70 - 110 mg/dL 12/03/2024 10:49 AM EDT [facility] Comment: In the event of poor peripheral blood flow, venous or arterial blood should be used due to the potential of erroneous results. Notified Nurse RBV Laboratory Scientist [id number] 12/03/2024 10:49 AM EDT [facility] Blood WHOLE BLOOD / Unknown 12/03/2024 10:45 AM EDT 12/03/2024 10:49 AM EDT Narrative [facility] - 12/03/2024 10:49 AM EDT Laboratory Scientist ID is - [id number] Timothy Bai MD POINT OF CARE TEST ORDERAB LES Final Result Performing Organization Address [facility] Co de Phone Number [facility] [address] [phone] * ECG 12 lead (12/03/2024 10:39 AM EDT) Pathologist [facility] VENTRICULAR RATE EKG/MIN 97 BPM GE MUSE ATRIAL RATE (MCT) 97 BPM GE MUSE MI Interval 150 ms GE MUSE QRS-INTERVAL (MSEC) 88 ms GE MUSE QT Interval 362 ms GE MUSE QTC Interval 459 ms GE MUSE P [place] 40 degrees GE MUSE R AXIS (MCT) 8 degrees GE MUSE T Wave [place] -8 degrees GE MUSE Bryan Diagnosis Normal sinus rhythm Normal ECG No previous ECGs available Confirmed by DEYSI FOSS M.D. ([id number]) on 12/03/2024 5:59:01 PM GE MUSE 12/03/2024 10:3 9 AM EDT 12/03/2024 5:59 PM EDT us Timothy Bai MD ECG ORDERABLES Final Resu lt GE MUSE * (ABNORMAL) CBC with automated diff (12/03/2024 8:31 AM EDT) WBC 2.8(L) 4.0 - 10.0 K/ L 12/03/2024 9:00 AM EDT [facility] RBC 2.68(L) 3.93 - 5.22 M/ L 12/03/2024 9:00 AM EDT [facility] Hemoglobin 8.2(L) 11.2 - 15.7 GM/DL 12/03/2024 9:00 AM EDT [facility] Hematocrit 26.1(L) 34.1 - 44.9 % 12/03/2024 9:00 AM EDT [facility] MCV 97(H) 79 - 95 fL 12/03/2024 9:00 AM EDT [facility] MCH 30.6 25.6 - 32.2 pg 12/03/2024 9:00 AM EDT [facility] MCHC 31.4(L) 32.2 - 35.5 GM/DL 12/03/2024 9:00 AM EDT [facility] RDW 17.5(H) 11.7 - 14.4 % 12/03/2024 9:00 AM EDT [facility] Platelets 55(L) 140 - 375 K/CU MM 12/03/2024 9:00 AM EDT [facility] MPV 10.0 9.4 - 12.3 fL 12/03/2024 9:00 AM EDT [facility] % Neutros 79(H) 34 - 71 % 12/03/2024 9:00 AM EDT [facility] % Lymphs 13(L) 19 - 52 % 12/03/2024 9:00 AM EDT [facility] % Monos 6 5 - 13 % 12/03/2024 9:00 AM EDT [facility] % Eos 0(L) 1 - 6 % 12/03/2024 9:00 AM EDT [facility] % Baso 0 0 - 1 % 12/03/2024 9:00 AM EDT [facility] NRBC Absolute <0.01 0 - 0.012 K/ul 12/03/2024 9:00 AM EDT [facility] # Neutros 2.22 1.56 - 6.13 K/ L 12/03/2024 9:00 AM EDT [facility] # Lymphs 0.37(L) 1.18 - 3.74 K/ L 12/03/2024 9:00 AM EDT [facility] # Monos 0.18(L) 0.24 - 0.86 K/ L 12/03/2024 9:00 AM EDT [facility] # Eos <0.03(L) 0.04 - 0.36 K/ L 12/03/2024 9:00 AM EDT [facility] # Baso <0.03 0.01 - 0.08 K/ L 12/03/2024 9:00 AM EDT [facility] Immature Granulocytes-Re lative 0.70(H) 0.01 - 0.43 % 12/03/2024 9:00 AM EDT [facility] # IG <0.03 0.00 - 0.03 K/uL 12/03/2024 9:00 AM EDT [facility] Blood Venipuncture / Unknown 12/03/2024 8:31 AM EDT 12/03/2024 8:40 AM EDT Narrative [facility] - 12/03/2024 9:00 AM EDT When CBC w/ Auto Diff is ordered the lab will add a Manual Differential as a quality check at no additional charge if: Lymphocytes greater than seventy five percent with normal or increased WBC Monocytes greater than Fifteen percent Basophil greater than four percent Bands >10% or several immature myeloids are seen on scan Blast? Flag noted Atypical Lymph flag noted us Timothy Bai MD LAB BLOOD ORDERABLES Final Result [facility] [address] [phone] * Creatine Kinase (CK) (12/03/2024 7:39 AM EDT) Total CK 55 29 - 168 U/L 12/03/2024 6:19 PM EDT [facility] Blood Venipuncture / Unknown 12/03/2024 7:39 AM EDT 12/03/2024 5:52 PM EDT us Hema Cervantes MD LAB BLOOD ORDERABLES Final Re sult [facility] [address] [phone] * Ammonia (12/03/2024 7:39 AM EDT) Ammonia 36 18 - 72 mol/L 12/03/2024 7:56 AM EDT [facility] Blood Venipuncture / Unknown 12/03/2024 7:39 AM EDT 12/03/2024 7:45 AM EDT Narrative [facility] - 12/03/2024 7:56 AM EDT Specimen slightly hemolyzed us Timothy Bai MD LAB BLOOD ORDERABLES Final Result [facility] [address] [phone] * (ABNORMAL) Comprehensive Metabolic Panel (12/03/2024 7:39 AM EDT) Sodium 147(H) 136 - 145 meq/L 12/03/2024 8:05 AM EDT [facility] Potassium 4.1 3.4 - 5.1 meq/L 12/03/2024 8:05 AM EDT [facility] Chloride 119(H) 98 - 112 meq/L 12/03/2024 8:05 AM EDT [facility] CO2 20(L) 22 - 29 meq/L 12/03/2024 8:05 AM [facility] Calcium 8.3(L) 8.4 - 10.2 mg/dL 12/03/2024 8:05 AM [facility] Glucose 145(H) 82 - 115 mg/dL 12/03/2024 8:05 AM [facility] BUN 53.7(H) 9.8 - 20.1 mg/dL 12/03/2024 8:05 AM [facility] Creatinine 3.48(H) 0.57 - 1.11 mg/dL 12/03/2024 8:05 AM [facility] BUN/Creatinine 15 8 - 20 12/03/2024 8:05 AM [facility] eGFR (mL/min/1.73m2) 14(L) >=60 mL/min/1. 73m2 12/03/2024 8:05 AM [facility] Albumin 4.4 3.5 - 5.0 g/dL 12/03/2024 8:05 AM [facility] Alkaline Phosphatase 49 40 - 150 U/L 12/03/2024 8:05 AM [facility] ALT 7 <=34 U/L 12/03/2024 8:05 AM [facility] Comment: ALT2 reagent used for testing does not contain P5P supplementation and therefore may miss ALT elevations in patients with B6 deficiency. This population may be as high as 10% in the [place], with risk factors including malabsorption, drug interactions, and alcoholic hepatitis. AST 21 11 - 34 U/L 12/03/2024 8:05 AM [facility] Comment: AST2 reagent used for testing does not contain P5P supplementation and therefore may miss AST elevations in patients with B6 deficiency. This population may be as high as 10% in the [place], with risk factors including malabsorption, drug interactions, and alcoholic hepatitis. Total Bilirubin 1.1 0.2 - 1.2 mg/dL 12/03/2024 8:05 AM [facility] Protein, Total 6.8 6.4 - 8.3 g/dL 12/03/2024 8:05 AM [facility] Globulin 2.4(L) 2.5 - 4.1 g/dL 12/03/2024 8:05 AM EDT [facility] Anion Gap 12 4 - 12 12/03/2024 8:05 AM EDT [facility] A/G Ratio 1.8 0.7 - 1.9 12/03/2024 8:05 AM EDT [facility] Osmolality Calc 309.7 mOsm/kg 8:05 AM EDT [facility] Blood Venipuncture / Unknown 12/03/2024 7:39 AM EDT 12/03/2024 7:46 AM EDT Timothy Bai MD LAB BLOOD ORDERABLES Final Result [facility] [address] [phone] * Magnesium (12/03/2024 7:39 AM EDT) Magnesium 2.5 1.6 - 2.6 mg/dL 12/03/2024 8:05 AM EDT [facility] Blood Venipuncture / Unknown 12/03/2024 7:39 AM EDT 12/03/2024 7:46 AM EDT Timothy Bai MD LAB BLOOD ORDERABLES Final Result Performing Organization Address City/[facility]/ZIP Co de Phone Number [facility] [address] [phone] * (ABNORMAL) Glucose, Nova Meter (12/03/2024 5:13 AM EDT) POC-GLUCOSE 142(H) 70 - 110 mg/dL 12/03/2024 5:15 AM EDT [facility] Comment: In the event of poor peripheral blood flow, venous or arterial blood should be used due to the potential of erroneous results. Protocols Followed Laboratory Scientist [id number] 12/03/2024 5:15 AM EDT [facility] Blood WHOLE BLOOD / Unknown 12/03/2024 5:13 AM EDT 12/03/2024 5:15 AM EDT Narrative [facility] - 12/03/2024 5:15 AM EDT Laboratory Scientist ID is - [id number] us Timothy Bai MD POINT OF CARE TEST ORDERAB LES Final Result Performing Organization Address [facility] de Phone Number [facility] [address] [phone] * (ABNORMAL) Glucose, Nova Meter (12/03/2024 1:12 AM EDT) POC-GLUCOSE 168(H) 70 - 110 mg/dL 12/03/2024 1:13 AM EDT [facility] Comment: In the event of poor peripheral blood flow, venous or arterial blood should be used due to the potential of erroneous results. Protocols Followed Laboratory Scientist [id number] 12/03/2024 1:13 AM EDT [facility] Blood WHOLE BLOOD / Unknown 12/03/2024 1:12 AM EDT 12/03/2024 1:13 AM EDT Narrative [facility] - 12/03/2024 1:13 AM EDT Laboratory Scientist ID is - [id number] us Timothy Bai MD POINT OF CARE TEST ORDERAB LES Final Result Performing Organization Address [facility] de Phone Number [facility] [address] [phone] * (ABNORMAL) Glucose, Nova Meter (12/03/2024 1:10 AM EDT) POC-GLUCOSE 164(H) 70 - 110 mg/dL 12/03/2024 1:12 AM EDT [facility] Comment: In the event of poor peripheral blood flow, venous or arterial blood should be used due to the potential of erroneous results. Protocols Followed Laboratory Scientist [id number] 12/03/2024 1:12 AM EDT [facility] Blood WHOLE BLOOD / Unknown 12/03/2024 1:10 AM EDT 12/03/2024 1:12 AM EDT Narrative [facility] - 12/03/2024 1:12 AM EDT Laboratory Scientist ID is - [id number] us Timothy Bai MD POINT OF CARE TEST ORDERAB LES Final Result Performing Organization Address City/[facility]/ZIP Co de Phone Number [facility] [address] [place] [address], [facility] [phone] * (ABNORMAL) Hemoglobin (12/02/2024 11:06 PM EDT) Pathologist [facility] Hemoglobin 8.9(L) 11.2 - 15.7 GM/DL 12/02/2024 11:18 PM EDT [facility] Blood Venipuncture / Unknown 12/02/2024 11:06 PM EDT 12/02/2024 11:15 PM EDT us Denilson Hodgson DO LAB BLOOD ORDERABLES Final Res ult Performing Organization Address [facility] Co de Phone Number [facility] [address] [place] [address], [facility] [phone] * (ABNORMAL) Glucose, Nova Meter (12/02/2024 8:06 PM EDT) [facility] POC-GLUCOSE 144(H) 70 - 110 mg/dL 12/02/2024 8:08 PM EDT [facility] Comment: In the event of poor peripheral blood flow, venous or arterial blood should be used due to the potential of erroneous results. Protocols Followed Laboratory Scientist [id number] 12/02/2024 8:08 PM EDT [facility] Blood WHOLE BLOOD / Unknown 12/02/2024 8:06 PM EDT 12/02/2024 8:08 PM EDT Narrative [facility] - 12/02/2024 8:08 PM EDT Laboratory Scientist ID is - [id number] us Timothy Bai MD POINT OF CARE TEST ORDERAB LES Final Result Performing Organization Address City/[facility]/ZIP Co de Phone Number [facility] [address] [phone] * (ABNORMAL) Hemoglobin (12/02/2024 6:03 PM EDT) Hemoglobin 9.1(L) 11.2 - 15.7 GM/DL 12/02/2024 6:24 PM EDT [facility] Blood Venipuncture / Unknown 12/02/2024 6:03 PM EDT 12/02/2024 6:19 PM EDT us Timothy Bai MD LAB BLOOD ORDERABLES Final Result [facility] [address] [phone] * (ABNORMAL) Glucose, Nova Meter (12/02/2024 5:18 PM EDT) [facility] POC-GLUCOSE 128(H) 70 - 110 mg/dL 12/02/2024 5:21 PM EDT [facility] Comment: In the event of poor peripheral blood flow, venous or arterial blood should be used due to the potential of erroneous results. Notified Nurse RBV Laboratory Scientist [id number] 12/02/2024 5:21 PM EDT [facility] Blood WHOLE BLOOD / Unknown 12/02/2024 5:18 PM EDT 12/02/2024 5:20 PM EDT Narrative [facility] - 12/02/2024 5:21 PM EDT Laboratory Scientist ID is - [id number] us Timothy Bai MD POINT OF CARE TEST ORDERAB LES Final Result [facility] [address] [phone] * Transfuse RBC (12/02/2024 5:03 PM EDT) Timothy Bai MD FS_MODEL_IP_BLOOD TRANSFUS ION ORDERABLES Final Result * Transfuse RBC: 1 Units (12/02/2024 5:03 PM EDT) Timothy Bai MD FS_MODEL_IP_BLOOD TRANSFUS ION ORDERABLES Final Result * (ABNORMAL) Glucose, Nova Meter (12/02/2024 12:51 PM EDT) POC-GLUCOSE 112(H) 70 - 110 mg/dL 12/02/2024 12:53 PM EDT [facility] Comment: In the event of poor peripheral blood flow, venous or arterial blood should be used due to the potential of erroneous results. Notified Nurse RBV Laboratory Scientist [id number] 12/02/2024 12:53 PM EDT [facility] Blood WHOLE BLOOD / Unknown 12/02/2024 12:51 PM EDT 12/02/2024 12:53 PM EDT Narrative [facility] - 12/02/2024 12:53 PM EDT Laboratory Scientist ID is - [id number] Timothy Bai MD POINT OF CARE TEST ORDERAB LES Final Result [facility] [address] [phone] * CT bone marrow biopsy (12/02/2024 12:24 PM EDT) Anatomical Region Laterality Modality Computed Tomogra phy (CT) 12/02/2024 3:24 PM EDT Impressions 12/02/2024 3:53 PM EDT Status post CT guided biopsy bone marrow aspiration and core biopsy without immediate complication. Images reviewed, interpreted, and dictated by Dr. Haseeb Gil. Transcribed by Sandra Ramsey PA-C. Narrative 12/02/2024 3:[address] GUIDED BONE MARROW ASPIRATION AND CORE BIOPSY. HISTORY: Pancytopenia. ATTENDING RADIOLOGIST: Dr. Haseeb Gil. PHYSICIAN ELDER ASSISTANT: Sandra Ramsey PA-C PROCEDURE: After informed consent was obtained and a time-out was performed, the patient was prepped and draped in the usual sterile fashion over the left iliac bone. Utilizing local anesthesia and sterile technique with an osteo core system, access to the left iliac bone was obtained. 2 bone marrow aspirations were obtained. Spicules were confirmed. In addition, a bone marrow core was obtained. The patient received minimal conscious sedation. The patient tolerated the procedure well and left the department in good condition. CONSCIOUS SEDATION: 2 mg of IV Versed and 50 mcg of Fentanyl were administered. Continuous vital sign monitoring was used. An RN was present during the sedation process. Overall sedation time was 30 minutes. Procedure Note Haseeb Gil MD - 12/02/2024 CT GUIDED BONE MARROW ASPIRATION AND CORE BIOPSY. HISTORY: Pancytopenia. ATTENDING RADIOLOGIST: Dr. Haseeb Gil. PHYSICIAN ELDER ASSISTANT: Sandra Ramsey PA-C PROCEDURE: After informed consent was obtained and a time-out was performed, the patient was prepped and draped in the usual sterile fashion over the left iliac bone. Utilizing local anesthesia and sterile technique with an osteo core system, access to the left iliac bone was obtained. 2 bone marrow aspirations were obtained. Spicules were confirmed. In addition, a bone marrow core was obtained. The patient received minimal conscious sedation. The patient tolerated the procedure well and left the department in good condition. CONSCIOUS SEDATION: 2 mg of IV Versed and 50 mcg of Fentanyl were administered. Continuous vital sign monitoring was used. An RN was present during the sedation process. Overall sedation time was 30 minutes. IMPRESSION: Status post CT guided biopsy bone marrow aspiration and core biopsy without immediate complication. Images reviewed, interpreted, and dictated by Dr. Haseeb Gil. Transcribed by Sandra Ramsey PA-C. Laura Batista MD IMG CT ORDERABLES Final Result * [facility] BONE MARROW SMEAR, ASPIRATION, AND STAIN (12/02/2024 12:06 PM EDT) AP RESULT See Note: [facility] Comment: [facility] [address] [place] [address] or [phone] Joe Carlos M.D., Safety Clothing And Equipment Developer PATIENT NAME LABORATORY NO[facility] MARY OLIV[facility]. [id number] [facility] AGE SEX SSN CLIENT REF # [id number] [address] [place] [address] REQUESTING Aleksandr ATTENDING Aleksandr. COPY TOLAURA PICHARDO DATE COLLECTED DATE RECEIVED DATE REPORTED 12/02/2024 12/02/2024 12/06/2024 ADDENDUM PRESENT ADDENDUM: Cytogenetics shows a normal female karyotype, 46,XX[20]. The original diagnosis remains unchanged. Verified by Heydi Mak M.D., MPH on 12/13/2024 Professional interpretation rendered by Heydi Mak M.D., MPH at [facility], [address] [place] [address]. DIAGNOSIS: PERIPHERAL SMEAR , BONE MARROW ASPIRATION SMEAR , BONE MARROW ASPIRATE CLOT , BONE MARROW CORE BIOPSY BONE MARROW: Normocellular bone marrow for age with adequate maturing trilineage hematopoiesis and no evidence of dysplasia, increased blasts or fibrosis. Increased stainable spicular iron and no ring sideroblasts identified. See comment. FLOW CYTOMETRY: No immunophenotypic abnormalities identified. PERIPHERAL BLOOD: Macrocytic anemia. Leukopenia. Thrombocytopenia. COMMENT: The bone marrow biopsy does not show any evidence of primary hematolymphoid neoplasm and secondary causes of cytopenias are favored. Karyotype analysis is pending and will be reported in an addendum. CLINICAL HISTORY: Melena Review of chart shows that patient has history of pancytopenia in a background of multiple comorbidities including significant ascitis with abdominal pain, recent weight loss, dark tarry stools recently and altered mental status. Patient has history of kidney, heart and lung disease. CLINICAL LABORATORY DATA WBC 3.0 x10/3/-L RDW 17.1 % HGB 7.6 g/dl PLT 57 x10/3/-L HCT 24.2 % MCV 100 fL PERIPHERAL SMEAR MICROSCOPIC DESCRIPTION: RBCs show macrocytic anemia with occasional elliptocytes. There is no increase in schistocytes population or rouleaux formation. WBCs show leukopenia with otherwise normal granulocyte and lymphocyte morphology. No circulating blasts identified. Platelets are decreased and show normal morphology. BONE MARROW ASPIRATION MICROSCOPIC DESCRIPTION: Aspirate smears are spicular and cellular. Granulopoiesis shows a full range of maturation without dysplastic features. Blasts are not increased (1%). Eosinophils are not increased (1%). Erythropoiesis shows a full range of maturation without dysplastic features. The G:E ratio is approximately 2.6:1. Monocytes are not increased (3%). Megakaryocytes are present without dysplastic features. Lymphocytes are small and mature and are not increased (7%). Plasma cells are not increased (3%). An iron stain with appropriate control shows increased stainable spicular iron and no ring sideroblasts identified. BONE MARROW ASPIRATE CLOT MICROSCOPIC DESCRIPTION: The clot section shows multiple small spicules for review. The spicules have a cellularity of approximately 30%, which is normocellular for patient age. The cellular composition is similar to that of the core biopsy with adequate maturing trilineage hematopoiesis.. No lymphoid aggregates or granulomas are identified. BONE MARROW CORE BIOPSY MICROSCOPIC DESCRIPTION: The core biopsy shows approximately 17 mm of marrow for review. The marrow cellularity is approximately 30%, which is normocellular for patient age. Granulopoiesis is adequate with full maturation. Erythropoiesis is adequate with small erythroid islands. Megakaryopoiesis is adequate without morphologic abnormality. No lymphoid aggregates or granulomas are seen. Reticulin stain with appropriate control does not show any significant increase in reticulin fibers. Three immunohistochemical stains are performed. Some of these are also analyzed on flow cytometry but are necessary to repeat on tissue to evaluate early myeloid/erythroid architecture which cannot be done by flow cytometry alone. CD34 stains scattered blasts which are not increased or atypically aggregated. CD117 stains occasional early myeloid/erythroid precursors and scattered round mast cells which are not increased. P53 staining is not increased on the bone marrow cells beyond the expected wild-type pattern of expression. FLOW CYTOMETRY: Interpretation: No immunophenotypic abnormalities identified. The specimen viability is 95.7%. Flow cytometric analysis shows a heterogeneous cellular population. Blasts as indicated by low density CD45 antigen expression and CD34 expression are not increased (0.8%). Granulocytes show a normal immunophenotypic maturation pattern. Monocytes (3.6%) are immunophenotypically unremarkable. Lymphocytes are not increased (6.1%). T- cells (3.5%) show preserved expression of nguyen-T-cell markers and have a CD4:CD8 ratio of 1.6:1. B-cells (1.5%) are polyclonal with a kappa to lambda ratio of 2.6. Hematogones are present at 0.4%. A small population of polyclonal plasma cells (0.5%) is also identified. The following antibodies were evaluated by flow cytometry: CD2, CD3, CD4, CD5, CD7, CD8, CD10, CD13, CD14, CD15, CD16, CD19, CD20, CD33, CD34, CD38, CD45, CD56, CD57, CD117, CD123, HLA-DR, Lee, and Lambda. These tests use analyte specific reagents. The performance of these analyte specific reagents was determined by [facility] (see above for address). These tests have not been cleared or approved by the U.S. Food & Drug Administration (FDA). The FDA has determined that such approval is not necessary. These tests are used for clinical purposes and should not be considered experimental or research. Interpretation performed by Dr. Mak. The internal and external (both positive and negative) controls reacted appropriately. Some of our immunohistochemical and in situ hybridization studies are performed as analyte specific reagents. The following statement applies to those tests: This test was developed, and its performance characteristics determined by [facility]. It has not been cleared or approved by the US Food and Drug Administration. However, the FDA has determined that approval and clearance are not necessary. Professional interpretation rendered by Heydi Mak M.D., MPH at [facility], [address] [place] [address]. GROSS DESCRIPTION: A. Received 1 peripheral blood smear slide for review. B. Received 5 bone marrow aspirate smear slides for review. 4 additional bone marrow aspirate smear slides made at [facility]. C. Received in a purple top tube labeled LPIC first draw . A particle section is created using 1 mL of blood and filtered to recover multiple pieces of red soft tissue and coagulated blood measuring 0.7 x 0.4 x 0.2 cm in aggregate and is filtered and submitted entirely in 1 block. DIPIKA D. Labeled LPIC . Consists of 1 piece of thomas cylindrical firm tissue measuring 2.0 cm in length and 0.2 cm in diameter and is submitted entirely in 1 block following decalcification. REVIEWED, DIAGNOSED AND ELECTRONICALLY SIGNED BY: Heydi Mak M.D., MPH CPT CODES: 22138, 2FLP, [id number], [id number], [id number], 61063, 81791, [id number] Bone Marrow BONE MARROW STRUCTURE / Unknown 12/02/2024 12:06 PM EDT us Laura Batista MD PATHOLOGY/CYTOLOGY ORDERABLES Edited Result - Final [facility] [address] * Prepare RBC: 1 Units (12/02/2024 9:36 AM EDT) Issue Date/Time [id number] [facility] BLOOD [facility] [place]) Product Identification Red Blood Cells [facility] [place]) Product Code [id number] [facility] [place] Status Information Transfused [facility] [place] Unit Number [id number] [facility] BLOOD [facility] [place]) Blood Type 5100 [facility] [place]) Cross Match Results Compatible [facility] [place]) us Timothy Bai MD FS_MODEL_IP_BLOOD BANK PRO DUCT ORDERABLES Final Result Performing Organization Address [facility]/ZIP Co de Phone Number [facility] ([place]) [address] [place] [address] * (ABNORMAL) Hemoglobin and hematocrit (12/02/2024 7:40 AM EDT) Hemoglobin 7.4(L) 11.2 - 15.7 GM/DL 12/02/2024 9:43 AM EDT [facility] Hematocrit 23.4(L) 34.1 - 44.9 % 12/02/2024 9:43 AM EDT [facility] Blood Venipuncture / Unknown 12/02/2024 7:40 AM EDT 12/02/2024 7:47 AM EDT us Timothy Bai MD LAB BLOOD ORDERABLES Final Result [facility] [address] [place] [address] * (ABNORMAL) Hemoglobin (12/02/2024 7:40 AM EDT) Hemoglobin 7.3(L) 11.2 - 15.7 GM/DL 12/02/2024 7:52 AM EDT [facility] Blood Venipuncture / Unknown 12/02/2024 7:40 AM EDT 12/02/2024 7:47 AM EDT us Timothy Bai MD LAB BLOOD ORDERABLES Final Result [facility] [address] [phone] * (ABNORMAL) Glucose, Nova Meter (12/02/2024 5:04 AM EDT) [facility] POC-GLUCOSE 115(H) 70 - 110 mg/dL 12/02/2024 5:06 AM EDT [facility] Comment: In the event of poor peripheral blood flow, venous or arterial blood should be used due to the potential of erroneous results. Notified Nurse RBV Laboratory Scientist [id number] 12/02/2024 5:06 AM EDT [facility] Blood WHOLE BLOOD / Unknown 12/02/2024 5:04 AM EDT 12/02/2024 5:06 AM EDT Narrative [facility] - 12/02/2024 5:06 AM EDT Laboratory Scientist ID is - [id number] us Timothy Bai MD POINT OF CARE TEST ORDERAB LES Final Result [facility] [address] [phone] * (ABNORMAL) Ammonia (12/02/2024 3:38 AM EDT) Ammonia 74(H) 18 - 72 mol/L 12/02/2024 5:20 AM EDT [facility] Blood Venipuncture / Unknown 12/02/2024 3:38 AM EDT 12/02/2024 4:47 AM EDT Narrative [facility] - 12/02/2024 5:20 AM EDT Specimen slightly hemolyzed us Timothy Bai MD LAB BLOOD ORDERABLES Final Result [facility] [address] [phone] * (ABNORMAL) Comprehensive Metabolic Panel (12/02/2024 3:38 AM EDT) Sodium 146(H) 136 - 145 meq/L 12/02/2024 5:30 AM EDT [facility] Potassium 4.2 3.4 - 5.1 meq/L 12/02/2024 5:30 AM EDT [facility] Chloride 118(H) 98 - 112 meq/L 12/02/2024 5:30 AM EDT [facility] CO2 19(L) 22 - 29 meq/L 12/02/2024 5:30 AM EDT [facility] Calcium 7.9(L) 8.4 - 10.2 mg/dL 12/02/2024 5:30 AM EDT [facility] Glucose 107 82 - 115 mg/dL 12/02/2024 5:30 AM EDT [facility] BUN 55.1(H) 9.8 - 20.1 mg/dL 12/02/2024 5:30 AM EDT [facility] Creatinine 3.55(H) 0.57 - 1.11 mg/dL 12/02/2024 5:30 AM EDT [facility] BUN/Creatinine 16 8 - 20 12/02/2024 5:30 AM EDT [facility] eGFR (mL/min/1.73m2) 14(L) >=60 mL/min/1. 73m2 12/02/2024 5:30 AM EDT [facility] Albumin 3.6 3.5 - 5.0 g/dL 12/02/2024 5:30 AM EDT [facility] Alkaline Phosphatase 49 40 - 150 U/L 12/02/2024 5:30 AM EDT [facility] ALT 8 <=34 U/L 12/02/2024 5:30 AM EDT [facility] Comment: ALT2 reagent used for testing does not contain P5P supplementation and therefore may miss ALT elevations in patients with B6 deficiency. This population may be as high as 10% in the [place], with risk factors including malabsorption, drug interactions, and alcoholic hepatitis. AST 32 11 - 34 U/L 12/02/2024 5:30 AM EDT [facility] Comment: AST2 reagent used for testing does not contain P5P supplementation and therefore may miss AST elevations in patients with B6 deficiency. This population may be as high as 10% in the [place], with risk factors including malabsorption, drug interactions, and alcoholic hepatitis. Total Bilirubin 0.9 0.2 - 1.2 mg/dL 12/02/2024 5:30 AM EDT [facility] Protein, Total 6.1(L) 6.4 - 8.3 g/dL 12/02/2024 5:30 AM EDT [facility] Globulin 2.5 2.5 - 4.1 g/dL 12/02/2024 5:30 AM EDT [facility] Anion Gap 13(H) 4 - 12 12/02/2024 5:30 AM EDT [facility] A/G Ratio 1.4 0.7 - 1.9 12/02/2024 5:30 AM EDT [facility] Osmolality Calc 306.2 mOsm/kg 5:30 AM EDT [facility] Blood Venipuncture / Unknown 12/02/2024 3:38 AM EDT 12/02/2024 4:48 AM EDT Narrative [facility] - 12/02/2024 5:30 AM EDT Specimen slightly hemolyzed us Timothy Bai MD LAB BLOOD ORDERABLES Final Result [facility] [address] [phone] * Magnesium (12/02/2024 3:38 AM EDT) Magnesium 2.5 1.6 - 2.6 mg/dL 12/02/2024 5:30 AM EDT [facility] Blood Venipuncture / Unknown 12/02/2024 3:38 AM EDT 12/02/2024 4:48 AM EDT Narrative [facility] - 12/02/2024 5:30 AM EDT Specimen slightly hemolyzed us Timothy Bai MD LAB BLOOD ORDERABLES Final Result [facility] [address] [phone] * (ABNORMAL) CBC - Hemogram (SJ-BKR) (12/02/2024 3:38 AM EDT) [facility] WBC 3.0(L) 4.0 - 10.0 K/ L 12/02/2024 5:08 AM EDT [facility] RBC 2.43(L) 3.93 - 5.22 M/ L 12/02/2024 5:08 AM EDT [facility] Hemoglobin 7.6(L) 11.2 - 15.7 GM/DL 12/02/2024 5:08 AM EDT [facility] Hematocrit 24.2(L) 34.1 - 44.9 % 12/02/2024 5:08 AM EDT [facility] MCV 100(H) 79 - 95 fL 12/02/2024 5:08 AM EDT [facility] MCH 31.3 25.6 - 32.2 pg 12/02/2024 5:08 AM EDT [facility] MCHC 31.4(L) 32.2 - 35.5 GM/DL 12/02/2024 5:08 AM EDT [facility] RDW 17.1(H) 11.7 - 14.4 % 12/02/2024 5:08 AM EDT [facility] Platelets 57(L) 140 - 375 K/CU MM 12/02/2024 5:08 AM EDT [facility] MPV 10.5 9.4 - 12.3 fL 12/02/2024 5:08 AM EDT [facility] Blood Venipuncture / Unknown 12/02/2024 3:38 AM EDT 12/02/2024 4:47 AM EDT us Timothy Bai MD LAB BLOOD ORDERABLES Final Result Performing Organization Address City/[facility]/ZIP Co de Phone Number [facility] [address] [phone] * (ABNORMAL) Hemoglobin (12/02/2024 12:04 AM EDT) Hemoglobin 7.7(L) 11.2 - 15.7 GM/DL 12/02/2024 12:18 AM EDT [facility] Blood Venipuncture / Unknown 12/02/2024 12:04 AM EDT 12/02/2024 12:16 AM EDT Timothy Bai MD LAB BLOOD ORDERABLES Final Result Performing Organization Address City/[facility] Co de Phone Number [facility] [address] [phone] * (ABNORMAL) Glucose, Nova Meter (12/01/2024 7:34 PM EDT) POC-GLUCOSE 128(H) 70 - 110 mg/dL 12/01/2024 7:35 PM EDT [facility] Comment: In the event of poor peripheral blood flow, venous or arterial blood should be used due to the potential of erroneous results. Notified Nurse RBV Laboratory Scientist [id number] 12/01/2024 7:35 PM EDT [facility] Blood WHOLE BLOOD / Unknown 12/01/2024 7:34 PM EDT 12/01/2024 7:35 PM EDT Narrative [facility] - 12/01/2024 7:35 PM EDT Laboratory Scientist ID is - [id number] us Timothy Bai MD POINT OF CARE TEST ORDERAB LES Final Result [facility] [address] [phone] * (ABNORMAL) Glucose, Nova Meter (12/01/2024 4:25 PM EDT) POC-GLUCOSE 115(H) 70 - 110 mg/dL 12/01/2024 4:26 PM EDT [facility] Comment: In the event of poor peripheral blood flow, venous or arterial blood should be used due to the potential of erroneous results. Notified Nurse RBV Laboratory Scientist [id number] 12/01/2024 4:26 PM EDT [facility] Blood WHOLE BLOOD / Unknown 12/01/2024 4:25 PM EDT 12/01/2024 4:26 PM EDT Narrative [facility] - 12/01/2024 4:26 PM EDT Laboratory Scientist ID is - [id number] us Timothy Bai MD POINT OF CARE TEST ORDERAB LES Final Result Performing Organization Address [facility]/ZIP Co de Phone Number [facility] [address] [phone] * (ABNORMAL) Hemoglobin (12/01/2024 3:33 PM EDT) [facility] Hemoglobin 8.0(L) 11.2 - 15.7 GM/DL 12/01/2024 4:03 PM EDT [facility] Blood Venipuncture / Unknown 12/01/2024 3:33 PM EDT 12/01/2024 4:00 PM EDT us Timothy Bai MD LAB BLOOD ORDERABLES Final Result [facility] [address] [place] [address], [facility] [phone] * Glucose, Nova Meter (12/01/2024 10:32 AM EDT) [facility] POC-GLUCOSE 100 70 - 110 mg/dL 12/01/2024 10:33 AM EDT [facility] Comment: In the event of poor peripheral blood flow, venous or arterial blood should be used due to the potential of erroneous results. Notified Nurse RBV Laboratory Scientist [id number] 12/01/2024 10:33 AM EDT [facility] Blood WHOLE BLOOD / Unknown 12/01/2024 10:32 AM EDT 12/01/2024 10:33 AM EDT [facility] - 12/01/2024 10:33 AM EDT Laboratory Scientist ID is - [id number] us Timothy Bai MD POINT OF CARE TEST ORDERAB LES Final Result Performing Organization Address [facility]/State/ZIP Co de Phone Number [facility] [address] [phone] * Transfuse RBC (12/01/2024 9:18 AM EDT) us Denilson Hodgson DO FS_MODEL_IP_BLOOD TRANSFUSION ORDERABLES Final Result * Transfuse RBC: 1 Units (12/01/2024 9:18 AM EDT) us Denilson Hodgson DO FS_MODEL_IP_BLOOD TRANSFUSION ORDERABLES Final Result * Glucose, Nova Meter (12/01/2024 8:12 AM EDT) [facility] POC-GLUCOSE 103 70 - 110 mg/dL 12/01/2024 8:14 AM EDT [facility] Comment: In the event of poor peripheral blood flow, venous or arterial blood should be used due to the potential of erroneous results. Protocols Followed Laboratory Scientist [id number] 12/01/2024 8:14 AM EDT [facility] Blood WHOLE BLOOD / Unknown 12/01/2024 8:12 AM EDT 12/01/2024 8:14 AM EDT [facility] - 12/01/2024 8:14 AM EDT Laboratory Scientist ID is - [id number] us Timothy Bai MD POINT OF CARE TEST ORDERAB LES Final Result Performing Organization Address [facility] Co de Phone Number [facility] [address] [place] [address], [facility] [phone] * Type and Screen (12/01/2024 7:08 AM EDT) ABO/Rh O Positive 12/01/2024 4:53 AM EDT [facility] ([place]) Antibody Screen Negative 12/01/2024 4:53 AM EDT [facility] ([place]) HISTCHK HIST CHECK PERFORMED 12/01/2024 4:53 AM EDT [facility] [place]) Blood Venipuncture / Unknown 12/01/2024 7:08 AM EDT 12/01/2024 7:15 AM EDT us Denilson Hodgson DO [facility] BLOOD BANK TEST ORDERABLES Final Result Performing Organization Address [facility] [place] Number [facility] [place] ([place]) [address] [place] [address] * Glucose, Nova Meter (12/01/2024 5:37 AM EDT) [facility] POC-GLUCOSE 107 70 - 110 mg/dL 12/01/2024 5:39 AM EDT [facility] Comment: In the event of poor peripheral blood flow, venous or arterial blood should be used due to the potential of erroneous results. Notified Nurse RBV Laboratory Scientist [id number] 12/01/2024 5:39 AM EDT [facility] Blood WHOLE BLOOD / Unknown 12/01/2024 5:37 AM EDT 12/01/2024 5:39 AM EDT Narrative [facility] - 12/01/2024 5:39 AM EDT Laboratory Scientist ID is - [id number] us Timothy Bai MD POINT OF CARE TEST ORDERAB LES Final Result Performing Organization Address [facility] Co de Phone Number [facility] [address] [phone] * Prepare RBC: 1 Units (12/01/2024 4:53 AM EDT) Issue Date/Time [id number] [facility] [place]) Product Identification Red Blood Cells [facility] [place]) Product Code [id number] [facility] [place]) Status Information Transfused [facility] [place] Unit Number [id number] [facility] ([place]) Blood Type 5100 [facility] [place]) Cross Match Results Compatible [facility] [place]) us Denilson Hodgson DO FS_MODEL_IP_BLOOD BANK PRODUCT ORDERABLES Final Result Performing Organization Address City/[facility]/ZIP Co de Phone Number [facility] ([place]) [address] [facility] [place] [address], [facility] [phone] * ABO/RH Confirmation/Retype (12/01/2024 4:06 AM EDT) RETYPE O Positive 12/01/2024 5:15 AM EDT [facility] ([place]) Comment:[id number] Blood Venipuncture / Unknown 12/01/2024 4:06 AM EDT 12/01/2024 5:14 AM EDT us Timothy Bai MD [facility] BLOOD BANK TEST ORDERA BLES Final Result [facility] ([place]) 1 [facility] [address] [phone] * (ABNORMAL) Ammonia (12/01/2024 4:06 AM EDT) Ammonia 75(H) 18 - 72 mol/L 12/01/2024 4:49 AM EDT [facility] Blood Venipuncture / Unknown 12/01/2024 4:06 AM EDT 12/01/2024 4:13 AM EDT us Timothy Bai MD LAB BLOOD ORDERABLES Final Result [facility] [address] [phone] * (ABNORMAL) CBC - Hemogram (SJ-BKR) (12/01/2024 4:06 AM EDT) WBC 1.7(LL) 4.0 - 10.0 K/ L 12/01/2024 4:43 AM EDT [facility] RBC 2.15(L) 3.93 - 5.22 M/ L 12/01/2024 4:43 AM EDT [facility] Hemoglobin 6.7(L) 11.2 - 15.7 GM/DL 12/01/2024 4:43 AM EDT [facility] Hematocrit 21.6(L) 34.1 - 44.9 % 12/01/2024 4:43 AM EDT [facility] MCV 101(H) 79 - 95 fL 12/01/2024 4:43 AM EDT [facility] MCH 31.2 25.6 - 32.2 pg 12/01/2024 4:43 AM EDT [facility] MCHC 31.0(L) 32.2 - 35.5 GM/DL 12/01/2024 4:43 AM EDT [facility] RDW 16.2(H) 11.7 - 14.4 % 12/01/2024 4:43 AM EDT [facility] Platelets 54(L) 140 - 375 K/CU MM 12/01/2024 4:43 AM EDT [facility] MPV 10.6 9.4 - 12.3 fL 12/01/2024 4:43 AM EDT [facility] Blood Venipuncture / Unknown 12/01/2024 4:06 AM EDT 12/01/2024 4:12 AM EDT Timothy Bai MD LAB BLOOD ORDERABLES Final Result [facility] [address] [place] [address], [facility] [phone] * (ABNORMAL) Comprehensive Metabolic Panel (12/01/2024 4:05 AM EDT) Sodium 145 136 - 145 meq/L 12/01/2024 5:01 AM EDT [facility] Potassium 4.2 3.4 - 5.1 meq/L 12/01/2024 5:01 AM EDT [facility] Chloride 116(H) 98 - 112 meq/L 12/01/2024 5:01 AM [facility] CO2 20(L) 22 - 29 meq/L 12/01/2024 5:01 AM [facility] Calcium 8.0(L) 8.4 - 10.2 mg/dL 12/01/2024 5:01 AM [facility] Glucose 120(H) 82 - 115 mg/dL 12/01/2024 5:01 AM T [facility] BUN 68.3(H) 9.8 - 20.1 mg/dL 12/01/2024 5:01 AM [facility] Creatinine 4.13(H) 0.57 - 1.11 mg/dL 12/01/2024 5:01 AM [facility] BUN/Creatinine 17 8 - 20 12/01/2024 5:01 AM [facility] eGFR (mL/min/1.73m2) 12(L) >=60 mL/min/1. 73m2 12/01/2024 5:01 AM [facility] Albumin 2.8(L) 3.5 - 5.0 g/dL 12/01/2024 5:01 AM [facility] Alkaline Phosphatase 61 40 - 150 U/L 12/01/2024 5:01 AM [facility] ALT 15 <=34 U/L 12/01/2024 5:01 AM [facility] Comment: ALT2 reagent used for testing does not contain P5P supplementation and therefore may miss ALT elevations in patients with B6 deficiency. This population may be as high as 10% in the [place], with risk factors including malabsorption, drug interactions, and alcoholic hepatitis. AST 26 11 - 34 U/L 12/01/2024 5:01 AM EDT [facility] Comment: AST2 reagent used for testing does not contain P5P supplementation and therefore may miss AST elevations in patients with B6 deficiency. This population may be as high as 10% in the [place], with risk factors including malabsorption, drug interactions, and alcoholic hepatitis. Total Bilirubin 0.5 0.2 - 1.2 mg/dL 12/01/2024 5:01 AM EDT [facility] Protein, Total 5.7(L) 6.4 - 8.3 g/dL 12/01/2024 5:01 AM EDT [facility] Globulin 2.9 2.5 - 4.1 g/dL 12/01/2024 5:01 AM EDT [facility] Anion Gap 13(H) 4 - 12 12/01/2024 5:01 AM EDT [facility] A/G Ratio 1.0 0.7 - 1.9 12/01/2024 5:01 AM EDT [facility] Osmolality Calc 309.8 mOsm/kg 5:01 AM EDT [facility] Blood Venipuncture / Unknown 12/01/2024 4:05 AM EDT 12/01/2024 4:13 AM EDT Timothy Bai MD LAB BLOOD ORDERABLES Final Result Performing Organization Address City/State/[facility] Co de Phone Number [facility] [address] [place] [address] * (ABNORMAL) Magnesium (12/01/2024 4:05 AM EDT) Magnesium 2.7(H) 1.6 - 2.6 mg/dL 12/01/2024 4:57 AM EDT [facility] Blood Venipuncture / Unknown 12/01/2024 4:05 AM EDT 12/01/2024 4:13 AM EDT us Timothy Bai MD LAB BLOOD ORDERABLES Final Result [facility] [address] [place] [address], [facility] [phone] * Glucose, Nova Meter (11/30/2024 7:38 PM EDT) POC-GLUCOSE 106 70 - 110 mg/dL 11/30/2024 7:39 PM EDT [facility] Comment: In the event of poor peripheral blood flow, venous or arterial blood should be used due to the potential of erroneous results. Notified Nurse RBV Laboratory Scientist [id number] 11/30/2024 7:39 PM EDT [facility] Blood WHOLE BLOOD / Unknown 11/30/2024 7:38 PM EDT 11/30/2024 7:39 PM EDT [facility] - 11/30/2024 7:39 PM EDT Laboratory Scientist ID is - [id number] us Timothy Bai MD POINT OF CARE TEST ORDERAB LES Final Result [facility] [address] [place] [address], [facility] [phone] * Glucose, Nova Meter (11/30/2024 6:22 PM EDT) Pathologist [facility] POC-GLUCOSE 107 70 - 110 mg/dL 11/30/2024 6:25 PM EDT [facility] Comment:In the event of poor peripheral blood flow, venous or arterial blood should be used due to the potential of erroneous results. Laboratory Scientist [id number] 11/30/2024 6:25 PM EDT [facility] Blood WHOLE BLOOD / Unknown 11/30/2024 6:22 PM EDT 11/30/2024 6:25 PM EDT [facility] - 11/30/2024 6:25 PM EDT Laboratory Scientist ID is - [id number] us Timothy Bai MD POINT OF CARE TEST ORDERAB LES Final Result [facility] [address] [place] [address], [facility] [phone] * Ultrasound renal limited (11/30/2024 4:19 PM EDT) Anatomical Region Laterality Modality Abdomen, Kidney Ultrasound 11/30/2024 4:46 PM EDT Impressions 11/30/2024 4:47 PM EDT Normal renal ultrasound. Images reviewed, interpreted, and dictated by Ronnell Tom MD Narrative 11/30/2024 4:47 PM EDT RENAL ULTRASOUND HISTORY: Renal failure PROCEDURE: Sonographic images of the kidneys were obtained in both longitudinal and transverse orientations. FINDINGS: Limited images of the liver parenchyma demonstrate normal echogenicity. The right kidney measures 9.5 cm in length. It has normal echogenicity. There is no hydronephrosis. The left kidney measures 11.0 cm in length. It has normal echogenicity. There is no hydronephrosis. Procedure Note Ronnell Tom MD - 11/30/2024 RENAL ULTRASOUND HISTORY: Renal failure PROCEDURE: Sonographic images of the kidneys were obtained in both longitudinal and transverse orientations. FINDINGS: Limited images of the liver parenchyma demonstrate normal echogenicity. The right kidney measures 9.5 cm in length. It has normal echogenicity. There is no hydronephrosis. The left kidney measures 11.0 cm in length. It has normal echogenicity. There is no hydronephrosis. IMPRESSION: Normal renal ultrasound. Images reviewed, interpreted, and dictated by Ronnell Tom MD us Huey Hurtado MD IMG US ORDERABLES Final Result * Ultrasound liver (11/30/2024 4:19 PM EDT) Anatomical Region Laterality Modality Abdomen Ultrasound 11/30/2024 4:43 PM EDT Impressions 11/30/2024 4:53 PM EDT Cirrhosis. No focal liver lesions identified. Small volume perihepatic ascites. CRITICAL RESULT: No. COMMUNICATION: Per this written report. Images personally reviewed, interpreted and dictated by SABINE Yang. Narrative 11/30/2024 4:53 PM EDT CLINICAL INDICATION: Abdominal pain. Assess HCC TECHNIQUE: Multiplanar grayscale and color ultrasound images of the right upper quadrant of the abdomen were obtained. COMPARISON: Ultrasound 11/30/2024. FINDINGS: Quality: Adequate. Visualized Pancreas: Partial imaging of the pancreas is unremarkable. Liver: The liver parenchyma is coarse and heterogenous consistent with parenchymal disease. This limits the visualization of focal hepatic lesions however there are no sonographically detectable focal liver lesions. Nodular contour of the liver, suggestive of cirrhosis. Liver is small in size, measuring 11.4 cm. Portal vein is patent with appropriate flow and directionality. Mildly dilated portal vein, measuring 12 mm in diameter. Hepatic veins are patent with appropriate flow and directionality. Gallbladder: Prior cholecystectomy. Bile Ducts: No intrahepatic biliary ductal dilatation. No extrahepatic biliary ductal dilatation. The common bile duct is normal in size and measuring 4.2 mm in diameter. Fluid survey: Small amount of perihepatic ascites. Procedure Note Haseeb Gil MD - 11/30/2024 CLINICAL INDICATION: Abdominal pain. Assess HCC TECHNIQUE: Multiplanar grayscale and color ultrasound images of the right upper quadrant of the abdomen were obtained. COMPARISON: Ultrasound 11/30/2024. FINDINGS: Quality: Adequate. Visualized Pancreas: Partial imaging of the pancreas is unremarkable. Liver: The liver parenchyma is coarse and heterogenous consistent with parenchymal disease. This limits the visualization of focal hepatic lesions however there are no sonographically detectable focal liver lesions. Nodular contour of the liver, suggestive of cirrhosis. Liver is small in size, measuring 11.4 cm. Portal vein is patent with appropriate flow and directionality. Mildly dilated portal vein, measuring 12 mm in diameter. Hepatic veins are patent with appropriate flow and directionality. Gallbladder: Prior cholecystectomy. Bile Ducts: No intrahepatic biliary ductal dilatation. No extrahepatic biliary ductal dilatation. The common bile duct is normal in size and measuring 4.2 mm in diameter. Fluid survey: Small amount of perihepatic ascites. IMPRESSION: Cirrhosis. No focal liver lesions identified. Small volume perihepatic ascites. CRITICAL RESULT: No. COMMUNICATION: Per this written report. Images personally reviewed, interpreted and dictated by SABINE Yang. us Destiney Llanes APRN IMG US ORDERABLES Final Res ult * US paracentesis (11/30/2024 4:17 PM EDT) Anatomical Region Laterality Modality Abdomen Ultrasound 11/30/2024 4:37 PM EDT Impressions 11/30/2024 4:53 PM EDT Ultrasound guided right lower quadrant paracentesis as discussed above. 6 liters of clear yellow fluid was removed. Images reviewed, interpreted, and dictated by Dr. Haseeb Gil. Transcribed by Gabriel Velasco PA-C. Narrative 11/30/2024 4:53 PM EDT ULTRASOUND-GUIDED PARACENTESIS HISTORY: Ascites ATTENDING PHYSICIAN: Dr. Haseeb Gil PHYSICIAN ELDER ASSISTANT: Gabriel Velasco PA-C FINDINGS: After informed consent was obtained and timeout procedure performed, fluid was localized in the right lower quadrant under ultrasound guidance and marked on the skin appropriately. The patient was then prepped and draped in the usual sterile fashion and the skin was anesthetized with 1% Lidocaine. An ultrasound guided paracentesis was then performed using a Turkel needle. Approximately 6 liters of clear yellow fluid was removed. 80 mL was sent to lab. The patient tolerated the procedure well and there were no immediate complications. Procedure Note Haseeb Gil MD - 11/30/2024 ULTRASOUND-GUIDED PARACENTESIS HISTORY: Ascites ATTENDING PHYSICIAN: Dr. Haseeb Gil PHYSICIAN ELDER ASSISTANT: Gabriel Velasco PA-C FINDINGS: After informed consent was obtained and timeout procedure performed, fluid was localized in the right lower quadrant under ultrasound guidance and marked on the skin appropriately. The patient was then prepped and draped in the usual sterile fashion and the skin was anesthetized with 1% Lidocaine. An ultrasound guided paracentesis was then performed using a Turkel needle. Approximately 6 liters of clear yellow fluid was removed. 80 mL was sent to lab. The patient tolerated the procedure well and there were no immediate complications. IMPRESSION: Ultrasound guided right lower quadrant paracentesis as discussed above. 6 liters of clear yellow fluid was removed. Images reviewed, interpreted, and dictated by Dr. Haseeb Gil. Transcribed by Gabriel Velasco PA-C. us Huey Hurtado MD [facility] US ORDERABLES Final Result * Protein, body fluid (11/30/2024 4:03 PM EDT) Protein, Fluid 1.9 See Comment g/dL 12/01/2024 7:10 AM EDT [facility] BODY FLUID TYPE Peritoneal 12/01/2024 7:10 AM EDT [facility] Body Fluid PERITONEAL FLUID / Unknown 11/30/2024 4:03 PM EDT 12/01/2024 6:52 AM EDT Narrative [facility] - 12/01/2024 7:10 AM EDT This test has been modified from the golf course laborer's instructions and its performance characteristics were determined by the laboratory. The reference intervals and other method performance specifications are unavailable for this test. It is recommended to interpret body fluid concentrations in comparison with the corresponding serum or plasma concentrations and to integrate test results into the clinical context. Timothy Bai MD BODY FLUIDS AND STOOLS ORD ERABLES Final Result Performing Organization Address [facility] Co de Phone Number [facility] [address] [phone] * Glucose, body fluid (11/30/2024 4:03 PM EDT) Glucose, Body Fluid 107 See Comment mg/dL 12/01/2024 7:10 AM EDT [facility] BODY FLUID TYPE Peritoneal 12/01/2024 7:10 AM EDT [facility] Body Fluid PERITONEAL FLUID / Unknown 11/30/2024 4:03 PM EDT 12/01/2024 6:52 AM EDT Narrative [facility] - 12/01/2024 7:10 AM EDT This test has been modified from the golf course laborer's instructions and its performance characteristics were determined by the laboratory. The reference intervals and other method performance specifications are unavailable for this test. It is recommended to interpret body fluid concentrations in comparison with the corresponding serum or plasma concentrations and to integrate test results into the clinical context. Timothy Bai MD BODY FLUIDS AND STOOLS ORD ERABLES Final Result Performing Organization Address [facility] Co al Phone Number [facility] [address] [phone] * Body Fluid/CSF - Path Review (SJ) (11/30/2024 4:03 PM EDT) SENT TO PATHOLOGY FOR REVIEW Yes 12/03/2024 6:54 AM EDT [facility] Scan Result Mesothelial cells. MD German 12/02/2024 12/03/2024 6:54 AM EDT [facility] Peritoneal Fluid BODY FLUID / Unknown 11/30/2024 4:03 PM EDT 11/30/2024 4:33 PM EDT us Huey Hurtado MD BODY FLUIDS AND STOOLS ORDERABLE S Final Result [facility] [address] [phone] * DIFFERENTIAL, BODY FLUID (11/30/2024 4:03 PM EDT) Neutrophils Fluid 5 0 - 25 % 025 8:49 PM EDT [facility] Lymphocytes Fluid 46 % 025 8:49 PM EDT [facility] Unidentified Mononuclear Cells BF 49 0 - 0 % 11/30/2024 8:49 PM EDT [facility] Peritoneal Fluid BODY FLUID / Unknown 11/30/2024 4:03 PM EDT 11/30/2024 4:33 PM EDT us Huey Hurtado MD BODY FLUIDS AND STOOLS ORDERABLE S Final Result [facility] [address] [phone] * [facility] Non-Optometric Assistant Cytology (11/30/2024 4:03 PM EDT) AP RESULT See Note: [facility] Comment: [facility] [address] [place] [address] or [phone] Joe Carlos M.D., Safety Clothing And Equipment Developer PATIENT NAME LABORATORY NO. 170MARY PETERSEN. [id number] AGE SEX SSN CLIENT REF # [facility] [id number] F [id number] [facility] REQUESTING Aleksandr ATTENDING [place] [address] HUEY HURTADO DATE COLLECTED DATE RECEIVED DATE REPORTED 11/30/2024 12/01/2024 12/02/2024 DIAGNOSIS: PERITONEAL FLUID: Negative for malignant cells. MICROSCOPIC DESCRIPTION: Scattered mesothelial cells and chronic inflammatory cells are present. Professional interpretation rendered by John Sanchez M.D., Radu.Jose Guadalupe.A.P. at [facility], [address] [place] [address]. CLINICAL HISTORY: Melena Anasarca Acute renal failure SPECIMENS SUBMITTED: PERITONEAL FLUID GROSS SPECIMEN DESCRIPTION: 40 ccs of hazy, light yellow fluid, scant sediment, received in fixative ThinPrep slides prepared. Cell block has been examined. ADDICTION PROFESSIONAL: SVITLANA HERNANDEZ (ASCP) REVIEWED, DIAGNOSED AND ELECTRONICALLY SIGNED BY: John Sanchez M.D., F.C.A.P. CPT CODES: 28506, 04115 Peritoneal Fluid BODY FLUID / Unknown 11/30/2024 4:03 PM EDT us Huey Hurtado MD PATHOLOGY/CYTOLOGY ORDERABLES Fi nal Result [facility] [address] [place] [address] * Anaerobic Culture (11/30/2024 4:03 PM EDT) Result No Anaerobic growth 12/05/2024 6:34 AM EDT [facility] Peritoneal Fluid BODY FLUID / Unknown 11/30/2024 4:03 PM EDT 11/30/2024 4:34 PM EDT Narrative [facility] - 12/05/2024 6:34 AM EDT Specimen Description: peritoneal fluid us Huey Hurtado MD MICROBIOLOGY - GENERAL ORDERABLE S Final Result [facility] [address] [phone] * Body Fluid Culture + Gram Stain (11/30/2024 4:03 PM EDT) Result No growth 12/03/2024 9:07 AM EDT [facility] Gram Stain Result No organisms seen 12/03/2024 9:07 AM EDT [facility] Gram Stain Result No cells seen 12/03/2024 9:07 AM EDT [facility] Peritoneal Fluid BODY FLUID / Unknown 11/30/2024 4:03 PM EDT 11/30/2024 4:34 PM EDT Narrative [facility] - 12/03/2024 9:07 AM EDT Specimen Description: peritoneal fluid us Huey Hurtado MD MICROBIOLOGY - GENERAL ORDERABLE S Final Result Performing Organization Address [facility]/State/ZIP Co de Phone Number [facility] [address] [phone] * (ABNORMAL) Body fluid cell count with differential (11/30/2024 4:03 PM EDT) Appearance Cloudy(A) Clear 11/30/2024 8:49 PM EDT [facility] Color Yellow 11/30/2024 8:49 PM EDT [facility] BODY FLUID TYPE Peritoneal 11/30/2024 8:49 PM EDT [facility] Auto WBC/Nucleated Cells BF 85 /uL 11/30/2024 8:49 PM EDT [facility] Comment: Please refer to specific WBC/Nucleated Cell Count Body Fluid reference ranges below: For Pleural: 0-1000 Peritoneal: 0-1000 Pericardial:0-1000 Synovial: 0-200 Auto RBC BF <3,000 /uL 11/30/2024 8:49 PM EDT [facility] Comment: Please refer to specific RBC Cell Count Body Fluid reference ranges below: Pleural: 0-10,000 Peritoneal: 0-10,000 Pericardial:0-10,000 Synovial:0-30 Peritoneal Fluid BODY FLUID / Unknown 11/30/2024 4:03 PM EDT 11/30/2024 4:33 PM EDT [facility] - 11/30/2024 8:49 PM EDT There is normally no readily obtainable pleural, peritoneal and pericardial fluid, hence normal elements for these potential fluids are not defined. us Huey Hurtado MD BODY FLUIDS AND STOOLS ORDERABLE S Final Result Performing Organization Address [facility] Co de Phone Number [facility] [address] [phone] * Lactate dehydrogenase (LDH), body fluid (11/30/2024 4:03 PM EDT) LDH, Fluid 71 See Comment U/L 11/30/2024 6:19 PM EDT [facility] BODY FLUID TYPE Peritoneal 11/30/2024 6:19 PM EDT [facility] Peritoneal Fluid BODY FLUID / Unknown 11/30/2024 4:03 PM EDT 11/30/2024 4:33 PM EDT [facility] - 11/30/2024 6:19 PM EDT This test has been modified from the golf course laborer's instructions and its performance characteristics were determined by the laboratory. The reference intervals and other method performance specifications are unavailable for this test. It is recommended to interpret body fluid concentrations in comparison with the corresponding serum or plasma concentrations and to integrate test results into the clinical context. us Huey Hurtado MD BODY FLUIDS AND STOOLS ORDERABLE S Final Result Performing Organization Address [facility] Co de Phone Number [facility] [address] [phone] * Protein / creatinine ratio, urine (11/30/2024 11:35 AM EDT) Creatinine, Ur 62.00 47.00 - 110.00 mg/dL 11/30/2024 12:36 PM EDT [facility] Protein Creatinine Ratio 0.19 <=0.20 11/30/2024 12:36 PM EDT [facility] Protein, Urine 12 1 - 14 mg/dL 11/30/2024 12:36 PM EDT [facility] Urine 11/30/2024 11:3 5 AM EDT 11/30/2024 12:15 PM EDT Hill Boo MD URINE ORDERABLES Final Result Performing Organization Address City/[facility]/ZIP Co de Phone Number [facility] [address] [phone] * Urea Nitrogen, random urine (11/30/2024 11:35 AM EDT) Urea Nitrogen, Ur 305 mg/dL 11/30/2024 12:36 PM EDT [facility] Comment:Reference Range not established Urine 11/30/2024 11:3 5 AM EDT 11/30/2024 12:15 PM EDT us Hill Boo MD URINE ORDERABLES Final Result Performing Organization Address [facility]/ZIP Co de Phone Number [facility] [address] [phone] * Sodium, random urine (11/30/2024 11:35 AM EDT) Sodium Urine 83 See Comment meq/L 11/30/2024 12:36 PM EDT [facility] Comment:Reference Range not established Urine 11/30/2024 11:3 5 AM EDT 11/30/2024 12:15 PM EDT Hill Boo MD URINE ORDERABLES Final Result Performing Organization Address [facility] Co de Phone Number [facility] [address] [phone] * (ABNORMAL) Urinalysis Microscopic Only (11/30/2024 11:35 AM EDT) WBC, UA 21-50(A) None Seen /HPF 11/30/2024 12:06 PM EDT [facility] RBC, UA 0-2(A) None Seen /HPF 11/30/2024 12:06 PM EDT [facility] Bacteria, UA 1+(A) None Seen, Trace 11/30/2024 12:06 PM EDT [facility] Mucus 1+(A) None Seen 11/30/2024 12:06 PM EDT [facility] SQUAMOUS EPITHELIAL 3-5(A) None Seen /HPF 11/30/2024 12:06 PM EDT [facility] HYALINE CASTS 21-50(A) None Seen /LPF 11/30/2024 12:06 PM EDT [facility] Urine URINE SPECIMEN COLLECTION, CLEAN CATCH / Unknown 11/30/2024 11:35 AM EDT 11/30/2024 11:41 AM EDT us Destiney Llanes ELECTRIC REFRIGERATOR SERVICER URINE ORDERABLES Final Resu lt [facility] [address] [phone] * Urine Culture (11/30/2024 11:35 AM EDT) Result Recollect Specimen - 3 or more organisms suggests contamination 12/01/2024 6:49 AM EDT [facility] Urine URINE SPECIMEN COLLECTION, CLEAN CATCH / Unknown 11/30/2024 11:35 AM EDT 11/30/2024 11:41 AM EDT us Destiney Llanes APRN MICROBIOLOGY - GENERAL ORDE RABLES Final Result Performing Organization Address [facility]/ZIP Co de Phone Number [facility] [address] [phone] * (ABNORMAL) Urinalysis, Reflex Microscopic and Culture If Indicated (11/30/2024 11:35 AM EDT) Color, UA Light Yellow 11/30/2024 12:06 PM EDT [facility] Clarity, UA Turbid(A) Clear 11/30/2024 12:06 PM EDT [facility] Specific [place], UA 1.011 1.005 - 1.030 11/30/2024 12:06 PM EDT [facility] pH, UA 5.0(L) 6.0 - 8.0 11/30/2024 12:06 PM EDT [facility] Leukocytes, UA 500 Félix/uL(A) Negative 11/30/2024 12:06 PM EDT [facility] Nitrite, UA Negative Negative 11/30/2024 12:06 PM EDT [facility] Protein, UA Negative Negative 11/30/2024 12:06 PM EDT [facility] Glucose, UA Normal Normal 11/30/2024 12:06 PM EDT [facility] Ketones, UA Negative Negative 11/30/2024 12:06 PM EDT [facility] Bilirubin, UA Negative Negative 11/30/2024 12:06 PM EDT [facility] Blood, UA Negative Negative 11/30/2024 12:06 PM EDT [facility] Urobilinogen, UA Normal Normal 11/30/2024 12:06 PM EDT [facility] Specimen Source Urine, Clean Catch 11/30/2024 12:06 PM EDT [facility] Urine URINE SPECIMEN COLLECTION, CLEAN CATCH / Unknown 11/30/2024 11:35 AM EDT 11/30/2024 11:41 AM EDT us Destiney Llanes ELECTRIC REFRIGERATOR SERVICER URINE ORDERABLES Final Resu lt [facility] [address] [phone] * XR chest AP portable (11/30/2024 11:29 AM EDT) Anatomical Region Laterality Modality Chest X-Ray 11/30/2024 12:1 5 PM EDT Impressions 11/30/2024 12:20 PM EDT Prominent interstitial changes are likely secondary to vascular congestion. Continued follow-up is recommended. Images reviewed, interpreted, and dictated by Dr. Jose C Calhoun. Transcribed by Marielos Sotelo PA-C. Narrative 11/30/2024 12:20 PM EDT PORTABLE CHEST 11/30/2024 11:29 AM HISTORY: Hypertension, decompensated cirrhosis. COMPARISON: None. FINDINGS: The heart is proper size. The mediastinum is unremarkable. Prominent perihilar interstitial changes are noted, likely secondary to vascular congestion. There is no pneumothorax. The osseous structures are unremarkable. Procedure Note Andry Calhoun MD - 11/30/2024 PORTABLE CHEST 11/30/2024 11:29 AM HISTORY: Hypertension, decompensated cirrhosis. COMPARISON: None. FINDINGS: The heart is proper size. The mediastinum is unremarkable. Prominent perihilar interstitial changes are noted, likely secondary to vascular congestion. There is no pneumothorax. The osseous structures are unremarkable. IMPRESSION: Prominent interstitial changes are likely secondary to vascular congestion. Continued follow-up is recommended. Images reviewed, interpreted, and dictated by Dr. Jose C Calhoun. Transcribed by Marielos Sotelo PA-C. Destiney Llanes APRN [facility] Final Result * (ABNORMAL) Monoclonal Protein Study, Expanded Panel(SENDOUT) (11/30/2024 11:01 AM EDT) Total Protein, Serum 6.2(L) 6.3 - 8.2 g/dL 12/03/2024 12:57 PM EDT [facility] Albumin 2.71(L) 3.75 - 5.01 g/dL 12/03/2024 12:57 PM EDT [facility] Alpha 1 Globulin 0.34 0.19 - 0.46 g/dL 12/03/2024 12:57 PM EDT [facility] Alpha 2 Globulin 0.38(L) 0.48 - 1.05 g/dL 12/03/2024 12:57 PM EDT [facility] Beta Globulin 1.30(H) 0.48 - 1.10 g/dL 12/03/2024 12:57 PM EDT [facility] Gamma 1.47 0.62 - 1.51 g/dL 12/03/2024 12:57 PM EDT [facility] Immunofixation MAEGAN Done 12/03/2024 12:57 PM EDT [facility] Immunoglobulin G 1484 768 - 1632 mg/dL 12/03/2024 12:57 PM EDT [facility] Immunoglobulin A 686(H) 68 - 408 mg/dL 12/03/2024 12:57 PM EDT [facility] Immunoglobulin M 126 35 - 263 mg/dL 12/03/2024 12:57 PM EDT [facility] Monoclonal Protein Not Applicable <=0.00 g/dL 12/03/2024 12:57 PM EDT [facility] Lee Qnt Free Light Chains 173.10(H) 3.30 - 19.40 mg/L 12/03/2024 12:57 PM EDT [facility] Comment: INTERPRETIVE INFORMATION: Lee Qnt Free Light Chains Undetected antigen excess is a rare event but cannot be excluded. Free light chain results should always be interpreted in conjunction with other clinical and laboratory findings. Lambda Qnt Free Light Chains 123.84(H) 5.71 - 26.30 mg/L 12/03/2024 12:57 PM EDT [facility] Comment: INTERPRETIVE INFORMATION: Lambda Qnt Free Light Chains Undetected antigen excess is a rare event but cannot be excluded. Free light chain results should always be interpreted in conjunction with other clinical and laboratory findings. Lee/Lambda Free Light Chain Ratio 1.40 0.26 - 1.65 12/03/2024 12:57 PM EDT [facility] SPEP/MAEGAN Interpretation See Note 12/03/2024 12:57 PM EDT [facility] Comment: Restricted band in the beta region which may be related to fibrinogen and could indicate a plasma sample. Restricted band of protein migration in the gamma region which is too small to quantify. MAEGAN gel shows a faint band in IgG lambda which may be indicative of a specific immune response or an early monoclonal protein. Close clinical correlation with MAEGAN follow-up is suggested, if clinically indicated. EER Monoclonal Protein and FLC, Serum See Note 12/03/2024 12:57 PM EDT [facility] Comment: Authorized individuals can access the [facility] Enhanced Report with an [employer] Connect account using the following link. Your local lab can assist you in obtaining the patient report if you don't have a Connect account. [email or web address] Performed By: [facility] [address] [place] [address] [employer] Meat: Lalo Mortensen MD, PhD CLIA Number: [id number] Blood Venipuncture / Unknown 11/30/2024 11:01 AM EDT 11/30/2024 12:17 PM EDT Hill Boo MD LAB BLOOD ORDERABLES Final [place] [address], [facility] [phone] * Alpha Fetoprotein Tumor Marker(SENDOUT) (11/30/2024 11:01 AM EDT) Alpha Fetoprotein Tumor Marker 2 0 - 9 ng/mL 12/01/2024 3:41 PM EDT [facility] Comment: INTERPRETIVE INFORMATION: Alpha Fetoprotein Tumor Marker The Stefany Shala Access DxI AFP method is used. Results obtained with different assay methods or kits cannot be used interchangeably. AFP is a valuable aid in the management of nonseminomatous testicular cancer patients when used in conjunction with information available from the clinical evaluation and other diagnostic procedures. Increased AFP concentrations have also been observed in ataxia telangiectasia, hereditary tyrosinemia, primary hepatocellular carcinoma, teratocarcinoma, gastrointestinal tract cancers with and without liver metastases, and in benign hepatic conditions such as acute viral hepatitis, chronic active hepatitis, and cirrhosis. The result cannot be interpreted as absolute evidence of the presence or absence of malignant disease. The result is not interpretable as a tumor marker in females. Access complete set of age- and/or gender-specific reference intervals for this test in the [employer] Test Directory ([employer]). Performed By: [facility] [address] [place] [address] [employer]: Lalo Mortensen MD, PhD CLIA Number: [id number] Blood Venipuncture / Unknown 11/30/2024 11:01 AM EDT 11/30/2024 11:06 AM EDT us Destiney Llanes APRN LAB BLOOD ORDERABLES [place] [address], [facility] [phone] * Glucose, Nova Meter (11/30/2024 10:46 AM EDT) [facility] POC-GLUCOSE 102 70 - 110 mg/dL 11/30/2024 10:47 AM EDT [facility] Comment: In the event of poor peripheral blood flow, venous or arterial blood should be used due to the potential of erroneous results. Notified Nurse RBV Laboratory Scientist [id number] 11/30/2024 10:47 AM EDT [facility] Blood WHOLE BLOOD / Unknown 11/30/2024 10:46 AM EDT 11/30/2024 10:47 AM EDT Narrative [facility] - 11/30/2024 10:47 AM EDT Laboratory Scientist ID is - [id number] Timothy Bai MD POINT OF CARE TEST ORDERAB LES Final Result [facility] [address] [phone] * (ABNORMAL) Vitamin D, 25-Hydroxy (11/30/2024 8:20 AM EDT) [facility] Vitamin D 25-Hydroxy 22.0(L) 30 - 80 ng/mL 11/30/2024 9:48 AM EDT [facility] Blood Venipuncture / Unknown 11/30/2024 8:20 AM EDT 11/30/2024 9:08 AM EDT Timothy Bai MD LAB BLOOD ORDERABLES Final Result [facility] [address] [phone] * Hemoglobin A1c (11/30/2024 8:20 AM EDT) [facility] Hemoglobin A1C 4.9 4.0 - 5.6 % 11/30/2024 9:17 AM EDT [facility] Comment: Hemoglobin A1C levels are related to mean glucose during the preceding 2-3 months. Less than 7% demonstrates glycemic control in diabetic patients. Hemoglobin AlC % Suggested Diagnosis > or = 6.5 Diabetic 5.7 - 6.4 Prediabetic <5.7 Non-diabetic eAVG Glucose 93.93 70 - 126 mg/dL 11/30/2024 9:17 AM EDT [facility] Blood Venipuncture / Unknown 11/30/2024 8:20 AM EDT 11/30/2024 9:07 AM EDT us Huey Hurtado MD LAB BLOOD ORDERABLES Final Resul t Performing Organization Address City/State/[facility] Co de Phone Number [facility] [address] [phone] * ECHO COMPLETE (DOPPLER / COLOR) WO CONTRAST (11/30/2024 7:50 AM EDT) Anatomical Region Laterality Modality Heart Vascular Ultraso und 11/30/2024 7:25 AM EDT Narrative 11/30/2024 10:46 AM EDT TRANSTHORACIC ECHOCARDIOGRAPHY REPORT Demographics Patient Name: RIN JONES : 1960 Age: 64 year(s) Corporate ID Number: [id number] Gender Female Container Repairer: Giovanna Rock Height: 67 inches [facility] Referring Physician: HUEY HURTADO Weight: 225 pounds Interpreting JESSICA RAYMOND MD BMI: 35.24 kg/m^2 Physician: Date of Service: 11/30/2024 Blood Pressure: 118/59 mmHg Room Number: 579 Type of Study: TTE procedure: ECHO COMPLETE (DOPPLER / COLOR) W OR WO CONTRAST. Patient Status: Routine IP Study Location: [employer]ical Quality: Adequate visualization History/Tech Notes: Indication: shortness of breath R06.02 Impression: ######################################## Normal sized left ventricle. Normal left ventricular wall thickness. Visually estimated ejection fraction 55% +/- 5%. Borderline systolic strain pattern. Increased left atrial pressure (Grade II diastolic dysfunction). Sclerotic aortic valve leaflets. Trivial pericardial effusion measuring 0.3cm. posteriorly. ######################################## Measurements Summary: LVEDd: 5.33 cm LVESd: 3.64 cm IVSEd: 0.88 cm AO Root:2.7 cm LVPWd: 0.87 cm Contractility Score Normal Left Ventricular contractility was noted. LV regional wall motion: (0-Not visualized 1-Normal 2-Hypokinesis 3-Akinesis 4-Dyskinesis 5-Aneurysm) Left Ventricle Peak E-wave: 1.31 Peak A-wave: 1.35 m/s E/A ratio: 0.97 m/s Volume [id number] LV length: 8.51 cm ml Volume .96 ml LVOT diameter: 1.79 cm Normal sized left ventricle. Normal left ventricular wall thickness. Visually estimated ejection fraction 55% +/- 5%. Borderline systolic strain pattern. Increased left atrial pressure (Grade II diastolic dysfunction). No left ventricular masses or thrombi. Right Ventricle Diastolic dimension: 3.92 RV systolic pressure: 28.12 mmHg cm Normal sized right ventricle. Normal TAPSE c/w normal right ventricular function Left Atrium LA dimension: 4 cm LA volume:83.13 ml LA/Aorta: 1.48 Abnormal left atrial volume index 39 ml/m^2. Intact atrial septum. No atrial mass or thrombus. Right Atrium Normal sized right atrium. Intact atrial septum. No atrial mass or thrombus. Mitral Valve Deceleration time: 261.56 msec Thickened mitral valve leaflets. Mild (1+) mitral regurgitation. No mitral stenosis. No masses or vegetations seen. Aortic Valve AV VTI: 53.02 Area continuity: 1.13 Peak velocity: 2.38 m/s cm cm^2 Peak gradient: 22.63 LVOT VTI: 23.85 Mean velocity: 1.76 mmHg cm m/s Mean gradient: 13.56 mmHg Sclerotic aortic valve leaflets. Mildly thickend free edges of the aortic valve leaflets. No aortic regurgitation. No aortic stenosis. No masses or vegetations seen. Tricuspid Valve TR velocity: 2.51 m/s TR gradient: 25.07431 mmHg Estimated RAP: 3 mmHg RVSP: 28.12 mmHg Structurally normal tricuspid valve. Trace tricuspid valve regurgitation. No tricuspid stenosis. No masses or vegetations seen. Pulmonic Valve Acceleration time: 110.37 msec PASP: 28.12 mmHg Structurally normal pulmonic valve. Trace pulmonary valve regurgitation. No pulmonic stenosis. No masses or vegetations seen. Great Vessels Aorta Aortic Root: 2.7 cm LVOT Diameter: 1.79 cm Visualized thoracic aorta is normal. Normal aortic root. No evidence of dissection. Normal IVC with appropriate collapse. Pericardium / Pleura Trivial pericardial effusion measuring 0.3cm. posteriorly. Other Ascites noted in subcostal imaging. Procedure Note Jessica Raymond MD - 11/30/2024 TRANSTHORACIC ECHOCARDIOGRAPHY REPORT Demographics Patient Name: RIN JONES : 1960 Age: 64 year(s) Corporate ID Number: [id number] Gender Female Container Repairer: Giovanna Rock Height: 67 inches [facility] Referring Physician: HUEY HURTADO Weight: 225 pounds Interpreting JESSICA RAYMOND MD BMI: 35.24 kg/m^2 Physician: Date of Service: 11/30/2024 Blood Pressure: 118/59 mmHg Room Number: 579 Type of Study: TTE procedure: ECHO COMPLETE (DOPPLER / COLOR) W OR WO CONTRAST. Patient Status: Routine IP Study Location: [facility] Quality: Adequate visualization History/Tech Notes: Indication: shortness of breath R06.02 Impression: ######################################## Normal sized left ventricle. Normal left ventricular wall thickness. Visually estimated ejection fraction 55% +/- 5%. Borderline systolic strain pattern. Increased left atrial pressure (Grade II diastolic dysfunction). Sclerotic aortic valve leaflets. Trivial pericardial effusion measuring 0.3cm. posteriorly. ######################################## Measurements Summary: LVEDd: 5.33 cm LVESd: 3.64 cm IVSEd: 0.88 cm AO Root:2.7 cm LVPWd: 0.87 cm Contractility Score Normal Left Ventricular contractility was noted. LV regional wall motion: (0-Not visualized 1-Normal 2-Hypokinesis 3-Akinesis 4-Dyskinesis 5-Aneurysm) Left Ventricle Peak E-wave: 1.31 Peak A-wave: 1.35 m/s E/A ratio: 0.97 m/s Volume [id number] LV length: 8.51 cm ml Volume toxgzbkx13.96 ml LVOT diameter: 1.79 cm Normal sized left ventricle. Normal left ventricular wall thickness. Visually estimated ejection fraction 55% +/- 5%. Borderline systolic strain pattern. Increased left atrial pressure (Grade II diastolic dysfunction). No left ventricular masses or thrombi. Right Ventricle Diastolic dimension: 3.92 RV systolic pressure: 28.12 mmHg cm Normal sized right ventricle. Normal TAPSE c/w normal right ventricular function Left Atrium LA dimension: 4 cm LA volume:83.13 ml LA/Aorta: 1.48 Abnormal left atrial volume index 39 ml/m^2. Intact atrial septum. No atrial mass or thrombus. Right Atrium Normal sized right atrium. Intact atrial septum. No atrial mass or thrombus. Mitral Valve Deceleration time: 261.56 msec Thickened mitral valve leaflets. Mild (1+) mitral regurgitation. No mitral stenosis. No masses or vegetations seen. Aortic Valve AV VTI: 53.02 Area continuity: 1.13 Peak velocity: 2.38 m/s cm cm^2 Peak gradient: 22.63 LVOT VTI: 23.85 Mean velocity: 1.76 mmHg cm m/s Mean gradient: 13.56 mmHg Sclerotic aortic valve leaflets. Mildly thickend free edges of the aortic valve leaflets. No aortic regurgitation. No aortic stenosis. No masses or vegetations seen. Tricuspid Valve TR velocity: 2.51 m/s TR gradient: 25.23740 mmHg Estimated RAP: 3 mmHg RVSP: 28.12 mmHg Structurally normal tricuspid valve. Trace tricuspid valve regurgitation. No tricuspid stenosis. No masses or vegetations seen. Pulmonic Valve Acceleration time: 110.37 msec PASP: 28.12 mmHg Structurally normal pulmonic valve. Trace pulmonary valve regurgitation. No pulmonic stenosis. No masses or vegetations seen. Great Vessels Aorta Aortic Root: 2.7 cm LVOT Diameter: 1.79 cm Visualized thoracic aorta is normal. Normal aortic root. No evidence of dissection. Normal IVC with appropriate collapse. Pericardium / Pleura Trivial pericardial effusion measuring 0.3cm. posteriorly. Other Ascites noted in subcostal imaging. Huey Hurtado MD CV ECHO ORDERABLES Final Result * Glucose, Nova Meter (11/30/2024 5:13 AM EDT) POC-GLUCOSE 96 70 - 110 mg/dL 11/30/2024 5:17 AM EDT [facility] Comment: In the event of poor peripheral blood flow, venous or arterial blood should be used due to the potential of erroneous results. Protocols Followed Laboratory Scientist [id number] 11/30/2024 5:17 AM EDT [facility] Blood WHOLE BLOOD / Unknown 11/30/2024 5:13 AM EDT 11/30/2024 5:17 AM EDT Narrative [facility] - 11/30/2024 5:17 AM EDT Laboratory Scientist ID is - [id number] us Albert Garcia MD POINT OF CARE TEST ORDERABLES Fi nal Result Performing Organization Address [facility]/ZIP Co de Phone Number [facility] [address] [phone] * Blood Culture (11/30/2024 3:42 AM EDT) Result No growth in 5 days 12/05/2024 5:01 AM EDT [facility] Blood ENTIRE RIGHT UPPER ARM / Unknown Venipuncture / Unknown 11/30/2024 3:42 AM EDT 11/30/2024 4:09 AM EDT us Huey Hurtado MD MICROBIOLOGY - GENERAL ORDERABLE S Final Result Performing Organization Address [facility]/ZIP Co de Phone Number [facility] [address] [place] [address] * Folate, Serum (11/30/2024 3:40 AM EDT) Folate 7.0 7.0 - 31.4 ng/mL 11/30/2024 6:08 PM EDT [facility] Blood Venipuncture / Unknown 11/30/2024 3:40 AM EDT 11/30/2024 4:09 AM EDT us Laura Batista MD LAB BLOOD ORDERABLES Final Res ult Performing Organization Address [facility]/ZIP Co de Phone Number [facility] [address] [phone] * (ABNORMAL) Iron and TIBC (11/30/2024 3:40 AM EDT) Iron 63 50 - 170 ug/dL 11/30/2024 6:13 PM EDT [facility] TIBC 183(L) 250 - 435 ug/dL 11/30/2024 6:13 PM EDT [facility] % Saturation 34 % 11/30/2024 6:13 PM EDT [facility] UIBC 120 11/30/2024 6:13 PM EDT [facility] Blood Venipuncture / Unknown 11/30/2024 3:40 AM EDT 11/30/2024 4:09 AM EDT us Laura Batista MD LAB BLOOD ORDERABLES Final Res ult Performing Organization Address [facility] Co de Phone Number [facility] [address] [phone] * Ferritin (11/30/2024 3:40 AM EDT) Ferritin 168.51 4.63 - 204.00 ng/mL 11/30/2024 6:08 PM EDT [facility] Blood Venipuncture / Unknown 11/30/2024 3:40 AM EDT 11/30/2024 4:09 AM EDT us Laura Batista MD LAB BLOOD ORDERABLES Final Res ult Performing Organization Address [facility] Co de Phone Number [facility] [address] [phone] * (ABNORMAL) Lactate dehydrogenase (LDH) (11/30/2024 3:40 AM EDT) LDH 261(H) 125 - 220 U/L 11/30/2024 12:18 PM EDT [facility] Blood Venipuncture / Unknown 11/30/2024 3:40 AM EDT 11/30/2024 4:09 AM EDT us Hill Boo MD LAB BLOOD ORDERABLES Final Resu lt Performing Organization Address City/[facility]/ZIP Co de Phone Number [facility] [address] [phone] * (ABNORMAL) Creatine Kinase (CK) (11/30/2024 3:40 AM EDT) Total CK 356(H) 29 - 168 U/L 11/30/2024 12:18 PM EDT [facility] Blood Venipuncture / Unknown 11/30/2024 3:40 AM EDT 11/30/2024 4:09 AM EDT us Hill Boo MD LAB BLOOD ORDERABLES Final Resu lt Performing Organization Address [facility] Co de Phone Number [facility] [address] [phone] * (ABNORMAL) Uric acid (11/30/2024 3:40 AM EDT) Uric Acid 11.2(H) 2.5 - 6.2 mg/dL 11/30/2024 12:18 PM EDT [facility] Blood Venipuncture / Unknown 11/30/2024 3:40 AM EDT 11/30/2024 4:09 AM EDT us Hill Boo MD LAB BLOOD ORDERABLES Final Resu lt Performing Organization Address [facility] Co de Phone Number [facility] [address] [phone] * Vitamin B12 (11/30/2024 3:40 AM EDT) Vitamin B12 678 213 - 816 pg/mL 11/30/2024 8:10 AM EDT [facility] Blood Venipuncture / Unknown 11/30/2024 3:40 AM EDT 11/30/2024 4:09 AM EDT us Timothy Bai MD LAB BLOOD ORDERABLES Final Result [facility] [address] [phone] * Iron, serum (11/30/2024 3:40 AM EDT) [facility] Iron 64 50 - 170 ug/dL 11/30/2024 8:10 AM EDT [facility] Blood Venipuncture / Unknown 11/30/2024 3:40 AM EDT 11/30/2024 4:09 AM EDT Timothy Bai MD LAB BLOOD ORDERABLES Final Result Performing Organization Address [facility]/ZIP Co de Phone Number [facility] [address] [phone] * (ABNORMAL) CBC - Hemogram (SJ-BKR) (11/30/2024 3:40 AM EDT) [facility] WBC 1.9(LL) 4.0 - 10.0 K/ L 11/30/2024 4:25 AM EDT [facility] RBC 2.63(L) 3.93 - 5.22 M/ L 11/30/2024 4:25 AM EDT [facility] Hemoglobin 8.2(L) 11.2 - 15.7 GM/DL 11/30/2024 4:25 AM EDT [facility] Hematocrit 26.3(L) 34.1 - 44.9 % 11/30/2024 4:25 AM EDT [facility] MCV 100(H) 79 - 95 fL 11/30/2024 4:25 AM EDT [facility] MCH 31.2 25.6 - 32.2 pg 11/30/2024 4:25 AM EDT [facility] MCHC 31.2(L) 32.2 - 35.5 GM/DL 11/30/2024 4:25 AM EDT [facility] RDW 16.2(H) 11.7 - 14.4 % 11/30/2024 4:25 AM EDT [facility] Platelets 64(L) 140 - 375 K/CU MM 11/30/2024 4:25 AM EDT [facility] MPV 10.4 9.4 - 12.3 fL 11/30/2024 4:25 AM EDT [facility] Blood Venipuncture / Unknown 11/30/2024 3:40 AM EDT 11/30/2024 4:10 AM EDT us Huey Hurtado MD LAB BLOOD ORDERABLES Final Resul t [facility] [address] [phone] * (ABNORMAL) Comprehensive Metabolic Panel (11/30/2024 3:40 AM EDT) Sodium 144 136 - 145 meq/L 11/30/2024 5:07 AM EDT [facility] Potassium 4.6 3.4 - 5.1 meq/L 11/30/2024 5:07 AM EDT [facility] Chloride 115(H) 98 - 112 meq/L 11/30/2024 5:07 AM EDT [facility] CO2 20(L) 22 - 29 meq/L 11/30/2024 5:07 AM EDT [facility] Calcium 8.3(L) 8.4 - 10.2 mg/dL 11/30/2024 5:07 AM EDT [facility] Glucose 86 82 - 115 mg/dL 11/30/2024 5:07 AM EDT [facility] BUN 74.2(H) 9.8 - 20.1 mg/dL 11/30/2024 5:07 AM EDT [facility] Creatinine 4.15(H) 0.57 - 1.11 mg/dL 11/30/2024 5:07 AM EDT [facility] BUN/Creatinine 18 8 - 20 11/30/2024 5:07 AM EDT [facility] eGFR (mL/min/1.73m2) 12(L) >=60 mL/min/1. 73m2 11/30/2024 5:07 AM EDT [facility] Albumin 2.2(L) 3.5 - 5.0 g/dL 11/30/2024 5:07 AM EDT [facility] Alkaline Phosphatase 83 40 - 150 U/L 11/30/2024 5:07 AM EDT [facility] ALT 17 <=34 U/L 11/30/2024 5:07 AM EDT [facility] Comment: ALT2 reagent used for testing does not contain P5P supplementation and therefore may miss ALT elevations in patients with B6 deficiency. This population may be as high as 10% in the [place], with risk factors including malabsorption, drug interactions, and alcoholic hepatitis. AST 43(H) 11 - 34 U/L 11/30/2024 5:07 AM EDT [facility] Comment: AST2 reagent used for testing does not contain P5P supplementation and therefore may miss AST elevations in patients with B6 deficiency. This population may be as high as 10% in the [place], with risk factors including malabsorption, drug interactions, and alcoholic hepatitis. Total Bilirubin 0.8 0.2 - 1.2 mg/dL 11/30/2024 5:07 AM EDT [facility] Protein, Total 6.5 6.4 - 8.3 g/dL 11/30/2024 5:07 AM EDT [facility] Globulin 4.3(H) 2.5 - 4.1 g/dL 11/30/2024 5:07 AM T [facility] Anion Gap 14(H) 4 - 12 11/30/2024 5:07 AM T [facility] A/G Ratio 0.5(L) 0.7 - 1.9 11/30/2024 5:07 AM EDT [facility] Osmolality Calc 308.1 mOsm/kg 5:07 AM EDT [facility] Blood Venipuncture / Unknown 11/30/2024 3:40 AM EDT 11/30/2024 4:09 AM EDT us Huey Hurtado MD LAB BLOOD ORDERABLES Final Resul t [facility] [address] [phone] * Procalcitonin (11/30/2024 3:40 AM EDT) Procalcitonin 0.26 See Comment ng/mL 11/30/2024 5:07 AM EDT [facility] Comment: Sepsis comment <0.5 Antibiotics Discouraged >0.5 Antibiotics Encouraged *Assessing Sepsis Risk and Severity* >2.0 ng/mL High Risk for Progression to severe sepsis and/or septic shock 0.5-2.0 ng/mL Sepsis should be considered <0.5 ng/mL Low Risk for Progression to Severe and/or septic shock Lower Respiratory Tract Infection (LRT) <0.25 Antibiotics Discouraged >0.25 Antibiotics Encouraged *Procalcitonin results should be interpreted carefully in settings that are known to falsely elevate results such as renal failure, trauma, localized infections and puri. Blood Venipuncture / Unknown 11/30/2024 3:40 AM EDT 11/30/2024 4:09 AM EDT us Huey Hurtado MD LAB BLOOD ORDERABLES Final Resul t [facility] [address] [phone] * Blood Culture (11/30/2024 3:40 AM EDT) Result No growth in 5 days 12/05/2024 5:01 AM EDT [facility] [facility] Blood ENTIRE LEFT UPPER ARM / Unknown Venipuncture / Unknown 11/30/2024 3:40 AM EDT 11/30/2024 4:09 AM EDT us Huey Hurtado MD MICROBIOLOGY - GENERAL ORDERABLE S Final Result [facility] [address] [phone] * Ammonia (11/30/2024 3:40 AM EDT) Ammonia 59 18 - 72 mol/L 11/30/2024 4:51 AM EDT [facility] Blood Venipuncture / Unknown 11/30/2024 3:40 AM EDT 11/30/2024 4:10 AM EDT us Huey Hurtado MD LAB BLOOD ORDERABLES Final Resul t Performing Organization Address [facility] Phone Number [facility] [address] [phone] * (ABNORMAL) Magnesium (11/30/2024 3:40 AM EDT) Magnesium 2.7(H) 1.6 - 2.6 mg/dL 11/30/2024 5:07 AM EDT [facility] Blood Venipuncture / Unknown 11/30/2024 3:40 AM EDT 11/30/2024 4:09 AM EDT us Huey Hurtado MD LAB BLOOD ORDERABLES Final Resul t Performing Organization Address [facility] Phone Number [facility] [address] [phone] * Lactic Acid with reflex (11/30/2024 3:40 AM EDT) Lactic Acid Level (mmol/L) 0.9 0.5 - 2.2 mmol/L 11/30/2024 5:37 AM EDT [facility] Blood Venipuncture / Unknown 11/30/2024 3:40 AM EDT 11/30/2024 4:10 AM EDT us Huey Hurtado MD LAB BLOOD ORDERABLES Final Resul t Performing Organization Address [facility] Phone Number [facility] [address] [phone] * aPTT (11/30/2024 3:40 AM EDT) aPTT 27.7 22.0 - 32.0 seconds 11/30/2024 4:32 AM EDT [facility] Blood Venipuncture / Unknown 11/30/2024 3:40 AM EDT 11/30/2024 4:10 AM EDT us Huey Hurtado MD LAB BLOOD ORDERABLES Final Resul t Performing Organization Address [facility] Phone Number [facility] [address] [phone] * (ABNORMAL) Prothrombin time/INR (11/30/2024 3:40 AM EDT) Protime 12.9(H) 9.0 - 12.0 seconds 11/30/2024 4:32 AM EDT [facility] INR 1.17(H) 0.80 - 1.10 11/30/2024 4:32 AM EDT [facility] Comment: Recommended therapeutic ranges using International Normalized Ratio (INR) are: INR RANGE 2.0 - 3.0 Routine oral anticoagulant therapy 2.5 - 3.5 Oral anticoagulant therapy for patients with thromboembolic events on standard doses of Coumadin and those with mechanical heart valves. Blood Venipuncture / Unknown 11/30/2024 3:40 AM EDT 11/30/2024 4:10 AM EDT Result Archana Hurtado MD LAB BLOOD ORDERABLES Final Resul t Performing Organization Address [facility] Phone Number [facility] [address] [phone] * EKG-SCANNED (11/30/2024) Narrative 11/30/2024 Ordered by an unspecified provider. us Default Scanning Provider SCAN ORDERS Final Result * EKG-SCANNED (11/30/2024) Narrative 11/30/2024 Ordered by an unspecified provider. us Default Scanning Provider SCAN ORDERS Final Result * EKG-SCANNED (11/30/2024) Narrative 11/30/2024 Ordered by an unspecified provider. us Default Scanning Provider SCAN ORDERS Final Result documented in this encounter Visit Diagnoses Diagnosis Anasarca- Primary Edema Melena Blood in stool Anasarca Edema documented in this encounter Admitting Diagnoses Diagnosis Anasarca Edema documented in this encounter Administered Medications Inactive Administered Medications - up to 3 most recent administrations Medication Order MAR Action Action Date Dose Rate Site acetaminophen (TYLENOL) tablet 500 mg 500 mg Every 4 hours PRN, oral, fever greater than or equal to 38C, mild pain (1-3), Starting on Fri11/30/24 at 0303, Recommended maximum dose of acetaminophen is 4000 mg from all sources in 24 hours Given 12/10/2024 12:26 AM EDT 500 mg Given 12/09/2024 9:23 AM EDT 500 mg Given 12/09/2024 4:53 AM EDT 500 mg albumin human 25 % IV 12.5 g 12.5 g Once, intravenous, On Fri12/06/24 at 1100, For 1 dose, Albumin is restricted for approved indications only and limited to 24 hr duration, with exception of the last indication restricted to 48 hrs. If albumin therapy is needed beyond 24 hrs a new order should be placed by the provider. Choose an indication. Hepatorenal Syndrome New Bag 12/06/2024 12:38 PM EDT 12.5 g albumin human 25 % IV 25 g 25 g Every 6 hours scheduled, intravenous, First dose on Fri11/30/24 at 0600, For 2 days, Albumin is restricted for approved indications only and limited to 24 hr duration, with exception of the last indication restricted to 48 hrs. If albumin therapy is needed beyond 24 hrs a new order should be placed by the provider. Choose an indication. Hepatorenal Syndrome New Bag 12/01/2024 5:33 AM EDT 25 g New Bag 12/01/2024 12:32 AM EDT 25 g New Bag 11/30/2024 5:32 PM EDT 25 g albumin human 25 % IV 25 g 25 g Every 6 hours scheduled, intravenous, First dose (after last modification) on Fri12/01/24 at 1200, For 3 days, Albumin is restricted for approved indications only and limited to 24 hr duration, with exception of the last indication restricted to 48 hrs. If albumin therapy is needed beyond 24 hrs a new order should be placed by the provider. Choose an indication. Hepatorenal Syndrome New Bag 12/04/2024 6:10 AM EDT 2 5 g New Bag 12/04/2024 12:50 AM EDT 25 g New Bag 12/03/2024 5:36 PM EDT 25 g albumin human 25 % IV 25 g 25 g Every 6 hours scheduled, intravenous, First dose (after last reorder) on Fri12/04/24 at 1200, For 2 days, Albumin is restricted for approved indications only and limited to 24 hr duration, with exception of the last indication restricted to 48 hrs. If albumin therapy is needed beyond 24 hrs a new order should be placed by the provider. Choose an indication. Hepatorenal Syndrome New Bag 12/06/2024 6:36 AM EDT 2 5 g New Bag 12/06/2024 12:01 AM EDT 25 g New Bag 12/05/2024 5:10 PM EDT 25 g albuterol 2.5 mg /3 mL (0.083 %) nebulizer solution 2.5 mg 2.5 mg Every 6 hours PRN, nebulization, wheezing, Starting on Fri11/30/24 at 0410, RESPIRATORY THERAPY TREATMENT , What is the respiratory therapy Modality? Small volume Nebulization amiodarone (CORDARONE, NEXTERONE) 150 mg in dextrose 5 % (D5W) 100 mL (V2B) IVPB bolus 150 mg Once, intravenous, Administer over 10 Minutes, On Fri12/03/24 at 1430, For 1 dose, Use of a 0.22 micron in-line filter is required during administration. IVPB Started 12/03/2024 2:28 PM EDT 150 mg 618 mL/hr amiodarone (NEXTERONE) 450 mg in dextrose 5 % 250 mL infusion (premix) 1 mg/min Continuous (33.3333 mL/hr, rounded to 33.4 mL/hr), intravenous, Starting on Fri12/03/24 at 1430, For 6 hours New Bag 12/03/2024 2:28 PM EDT 1 mg/min 33.4 mL/hr amiodarone (NEXTERONE) 450 mg in dextrose 5 % 250 mL infusion (premix) 0.5 mg/min Continuous (16.6667 mL/hr, rounded to 16.7 mL/hr), intravenous, Starting on Fri12/03/24 at 2130, For 18 hours Rate/Dose Verify 12/04/2024 4:00 PM EDT 0.5 mg/min 16.7 mL/hr Rate/Dose Verify 12/04/2024 3:00 PM EDT 0.5 mg/min 16.7 mL /hr Rate/Dose Verify 12/04/2024 2:25 PM EDT 0.5 mg/min 16.7 mL /hr amiodarone (NEXTERONE) 450 mg in dextrose 5 % 250 mL infusion (premix) 0.5 mg/min Continuous (16.6667 mL/hr, rounded to 16.7 mL/hr), intravenous, Starting on 12/04/24 at 1830, For 18 hours Rate/Dose Verify 12/05/2024 8:00 AM EDT 0.5 mg/min 16.7 mL/hr Rate/Dose Verify 12/05/2024 7:00 AM EDT 0.5 mg/min 16.7 mL /hr New Bag 12/05/2024 5:54 AM EDT 0.5 mg/min 16.7 mL/hr amiodarone (PACERONE) tablet 200 mg 200 mg Daily, oral, First dose on Fri12/04/24 at 1130 Given 12/14/2024 9:30 AM EDT 200 mg Given 12/13/2024 9:02 AM EDT 200 mg Given 12/12/2024 8:40 AM EDT 200 mg amoxicillin-clavulanate (AUGMENTIN) 500-125 mg per tablet 1 tablet 1 tablet 2 times daily, oral, First dose on Fri12/06/24 at 1000, Please choose an indication: Pneumonia Given 12/11/2024 8:41 AM EDT 1 tablet Given 12/10/2024 9:05 PM EDT 1 tablet Given 12/10/2024 9:23 AM EDT 1 tablet atorvastatin (LIPITOR) tablet 20 mg 20 mg Every Night, oral, First dose on Fri11/30/24 at 2100 Given 12/13/2024 8:31 PM EDT 20 mg Given 12/12/2024 9:44 PM EDT 20 mg Given 12/11/2024 8:18 PM EDT 20 mg benzocaine-menthoL (CEPACOL) lozenge 1 lozenge 1 lozenge Every 2 hour PRN, buccal, sore throat, Starting on Fri12/04/24 at 0807 bumetanide (BUMEX) injection 0.5 mg 0.5 mg Once, intravenous, On Fri12/02/24 at 1130, For 1 dose Given 12/02/2024 1:15 PM EDT 0.5 mg bumetanide (BUMEX) injection 1 mg 1 mg Once, intravenous, On Fri12/04/24 at 1130, For 1 dose Given 12/04/2024 11:41 AM EDT 1 mg bumetanide (BUMEX) injection 1 mg 1 mg Once, intravenous, On Fri12/05/24 at 0930, For 1 dose Given 12/05/2024 9:49 AM EDT 1 mg bumetanide (BUMEX) injection 1 mg 1 mg Once, intravenous, On Fri12/06/24 at 1100, For 1 dose Given 12/06/2024 12:38 PM EDT 1 mg bumetanide (BUMEX) injection 1 mg 1 mg Once, intravenous, On Fri12/07/24 at 1500, For 1 doseIndications:Anasarca Given 12/07/2024 3:24 PM EDT 1 mg bumetanide (BUMEX) tablet 1 mg 1 mg Daily, oral, First dose on Fri12/07/24 at 1130 Given 12/08/2024 9:43 AM EDT 1 mg Given 12/07/2024 12:32 PM EDT 1 mg bumetanide (BUMEX) tablet 1 mg 1 mg 2 times daily, oral, First dose (after last modification) on Fri12/08/24 at 2100 Given 12/09/2024 9:19 AM EDT 1 mg Given 12/08/2024 8:30 PM EDT 1 mg bumetanide (BUMEX) tablet 1 mg 1 mg 3 times daily, oral, First dose (after last modification) on Fri12/09/24 at 1500 Given 12/10/2024 9:12 AM EDT 1 mg Given 12/09/2024 9:10 PM EDT 1 mg Given 12/09/2024 2:31 PM EDT 1 mg bumetanide (BUMEX) tablet 2 mg 2 mg 2 times daily, oral, First dose (after last modification) on Fri12/10/24 at 1300 Given 12/14/2024 9:30 AM EDT 2 mg Given 12/13/2024 8:31 PM EDT 2 mg Given 12/13/2024 9:03 AM EDT 2 mg cefTRIAXone (ROCEPHIN) 2 g in sodium chloride 0.9 % (NS) 50 mL MELIDA IVPB 2 g Every 24 hours, intravenous, at 100 mL/hr, First dose on Fri11/30/24 at 2100, Please choose an indication: Intra-abdominal Infection IVPB Started 12/02/2024 9:01 PM EDT 2 g 100 mL/hr IVPB Started 12/01/2024 9:46 PM EDT 2 g 100 mL/hr IVPB Started 11/30/2024 8:36 PM EDT 2 g 100 mL/hr cefTRIAXone (ROCEPHIN) 2 g in sodium chloride 0.9 % (NS) 50 mL MELIDA IVPB 2 g Every 24 hours, intravenous, at 100 mL/hr, First dose (after last modification) on Fri12/03/24 at 2100, For 4 doses, Please choose an indication: Intra-abdominal Infection IVPB Started 12/06/2024 9:02 PM EDT 2 g 100 m L/hr IVPB Started 12/05/2024 10:00 PM EDT 2 g 100 mL/hr IVPB Started 12/04/2024 9:51 PM EDT 2 g 100 mL/hr dextrose 50% (D50W) injection 25 g 25 g Every 15 min PRN, intravenous, low blood glucose (specify value in prn comments), less than 41 mg/dL or 41-69 mg/dL and unable to take PO, Starting on Fri11/30/24 at 0401, Repeat blood glucose every 15 minutes until blood glucose greater than 70 mg/dL. Call Provider if not resolved after 2 treatments Repeat BS in 1 hour, retime for 1 hour after blood sugar greater than 70 mg/dL If less than 41: Repeat Finger stick within 5 minutes with same machine Send serum glucose level: Do not wait on lab to treat ergocalciferol (DRISDOL) capsule 50,000 Units 50,000 Units Every 7 days, oral, First dose on Fri11/30/24 at 1400, * DO NOT CRUSH THIS DOSAGE FORM * Given 12/14/2024 4:07 PM EDT 50,000 Units Given 12/07/2024 2:46 PM EDT 50,000 Units Given 11/30/2024 2:59 PM EDT 50,000 Units fentaNYL PF (SUBLIMAZE) injection IMG once as needed, intravenous, Starting on Denise 12/02/24 at 1144, For 1 dose, Intra-op Given 12/02/2024 11:44 AM EDT 25 mcg fentaNYL PF (SUBLIMAZE) injection IMG once as needed, intravenous, Starting on Denise 12/02/24 at 1153, For 1 dose, Intra-op Given 12/02/2024 11:53 AM EDT 25 mcg furosemide (LASIX) injection 40 mg 40 mg Every 12 hours scheduled, intravenous, First dose on Fri11/30/24 at 0900 Given 11/30/2024 8:13 AM EDT 40 mg gabapentin (NEURONTIN) capsule 100 mg 100 mg 3 times daily, oral, First dose (after last modification) on Fri12/07/24 at 1500Indications:Anasarca Given 12/14/2024 4:08 PM EDT 100 mg Given 12/14/2024 9:30 AM EDT 100 mg Given 12/13/2024 8:31 PM EDT 100 mg gabapentin (NEURONTIN) capsule 200 mg 200 mg 3 times daily, oral, First dose (after last modification) on Fri12/07/24 at 1500 Given 12/07/2024 9:36 AM EDT 200 mg gabapentin (NEURONTIN) capsule 300 mg 300 mg 3 times daily, oral, First dose (after last modification) on Fri11/30/24 at 1500 Given 12/07/2024 10:01 AM EDT 300 mg Given 12/06/2024 9:05 PM EDT 300 mg Given 12/06/2024 5:09 PM EDT 300 mg gabapentin (NEURONTIN) capsule 800 mg 800 mg 3 times daily, oral, First dose on Fri11/30/24 at 0900 Given 11/30/2024 8:12 AM EDT 800 mg glucagon injection 1 mg 1 mg Every 15 min PRN, intraMUSCULAR, low blood glucose (specify value in prn comments), For Patients without IV access and blood glucose 41-69 mg/dL AND unable to take PO OR Less than 41 mg/dL, Starting on Fri11/30/24 at 0401, Caution: glucagon . Roll patient on their side when administering to prevent aspiration. Call Provider if not resolved after 2 treatments Repeat BS in 1 hour, retime for 1 hour after blood sugar greater than 70 mg/dL glucose chew tab 16 g 16 g Every 15 min PRN, oral, low blood glucose (specify value in prn comments), 41-69 mg/dL, Starting on Fri11/30/24 at 0401, For Patients who can take oral AND blood glucose 41-69 mg/dL Give 4 Tabs every 15 minutes. Recheck blood glucose every 15 minutes and repeat 15 grams of carbohydrates until blood glucose is above 70 mg/dL. Give Meal or Snack Call Provider if not resolved after 3 treatments Repeat BS in 1 hour, retime for 1 hour after blood sugar greater than 70 mg/dL hydrALAZINE (APRESOLINE) injection 10 mg 10 mg Every 6 hours PRN, intravenous, hypertension (sbp greater than 160), Starting on Fri11/30/24 at 0303, Hold if SBP < 100 mmHg, DBP < 50 mmHg, or patient is on pressor. Look-alike/Sound-alike medication Given 12/09/2024 2:31 PM EDT 10 mg Given 12/08/2024 8:34 PM EDT 10 mg Given 12/07/2024 8:30 PM EDT 10 mg insulin lispro (HUMALOG, ADMELOG) injection 0-18 Units 0-18 Units 4 times daily (before meals and nightly), subcutaneous, First dose on Fri11/30/24 at 0730, If Blood Sugar is less than 180 beteween 1057-9199, DO NOT give corrective insulin unless otherwise ordered. Corrective Scale C 0 units for fingerstick blood glucose LESS than 140 mg/dL 3 units subcutaneously once for fingerstick blood glucose [140] - [180] mg/dL 6 units subcutaneously once for fingerstick blood glucose [181] - [220] mg/dL 9 units subcutaneously once for fingerstick blood glucose [221] - [260] mg/dL 12 units subcutaneously once for fingerstick blood glucose [261] - [300] mg/dL 15 units subcutaneously once for fingerstick blood glucose [301] - [350] mg/dL 18 units subcutaneously once for fingerstick blood glucose [351] - [400] mg/dL Notify provider of glucose levels LESS than [70] and GREATER than [400] Given 12/14/2024 4:08 PM EDT 6 Units Abdominal Tissue Given 12/14/2024 11:02 AM EDT 6 Units A bdominal Tissue Given 12/13/2024 8:38 PM EDT 6 Units Ab dominal Tissue ipratropium-albuteroL (DUO-NEB) 0.5 mg-3 mg(2.5 mg base)/3 mL nebulizer solution 3 mL 3 mL Once, nebulization, On Fri12/01/24 at 1030, For 1 dose, RESPIRATORY THERAPY TREATMENT Protect from Light, Phase II, What is the respiratory therapy Modality? Small volume Nebulization Given 12/01/2024 9:50 AM EDT 3 mLs lactated Ringer's infusion 75 mL/hr Continuous, intravenous, Starting on Fri12/01/24 at 0830, Pre-op, On hold since Fri12/02/2024 at 0935 until manually unheld New Bag 12/01/2024 8:12 AM EDT 75 mL/hr 7 5 mL/hr lactulose (CHRONULAC) 10 gram/15 mL solution 10 g 10 g 3 times daily, oral, First dose (after last modification) on Fri12/01/24 at 0900 Given 12/05/2024 8:13 AM EDT 10 g Given 12/04/2024 9:51 PM EDT 10 g Given 12/04/2024 2:42 PM EDT 10 g lactulose (CHRONULAC) 10 gram/15 mL solution 10 g 10 g 2 times daily, oral, First dose (after last modification) on Fri12/05/24 at 2100 Given 12/14/2024 9:31 AM EDT 10 g Given 12/13/2024 8:32 PM EDT 10 g Given 12/13/2024 9:02 AM EDT 10 g lactulose (CHRONULAC) 10 gram/15 mL solution 20 g 20 g Daily, oral, First dose on Fri11/30/24 at 1130 Given 11/30/2024 11:20 AM EDT 20 g lip protectant (BLISTEX) 0.6-0.5-1.1-0.5 % topical ointment Starting on 5/10/25 at 0045, For 1 dose, Created by cabinet override Given 12/04/2024 6:10 AM EDT melatonin tablet 3 mg 3 mg Every Night PRN, oral, insomnia, Starting on Fri11/30/24 at 0302, On hold since Fri12/07/2024 at 1419 until manually unheld metOLazone (ZAROXOLYN) tablet 2.5 mg 2.5 mg Once, oral, On Fri12/09/24 at 1130, For 1 dose Given 12/09/2024 11:15 AM EDT 2.5 mg metOLazone (ZAROXOLYN) tablet 2.5 mg 2.5 mg Once, oral, On Fri12/10/24 at 1300, For 1 dose Given 12/10/2024 2:52 PM EDT 2.5 mg metOLazone (ZAROXOLYN) tablet 2.5 mg 2.5 mg Daily, oral, First dose (after last reorder) on Fri12/11/24 at 1030 Given 12/14/2024 9:30 AM EDT 2.5 mg Given 12/13/2024 9:03 AM EDT 2.5 mg Given 12/12/2024 8:58 AM EDT 2.5 mg midazolam (PF) (VERSED) injection IMG once as needed, intravenous, Starting on Fri12/02/24 at 1144, For 1 dose, Intra-op Given 12/02/2024 11:44 AM EDT 0. 5 mg midazolam (PF) (VERSED) injection IMG once as needed, intravenous, Starting on Fri12/02/24 at 1158, For 1 dose, Intra-op Given 12/02/2024 11:58 AM EDT 0. 5 mg ondansetron (ZOFRAN) injection 4 mg 4 mg Every 8 hours PRN, intravenous, nausea, vomiting, Starting on Fri11/30/24 at 0302, Give IV if patient is unable to take orally. 1st line If inadequate response within 60 minutes, proceed to next-line agent for same PRN reason or contact provider if no further options ordered. For IV push, give over 2 - 5 minutes. Given 12/08/2024 11:40 AM EDT 4 mg ondansetron (ZOFRAN-ODT) disintegrating tablet 4 mg 4 mg Every 8 hours PRN, oral, nausea, vomiting, Starting on Fri11/30/24 at 0302, 1st line. If inadequate response within 60 minutes, proceed to next-line agent for same PRN reason or contact provider if no further options ordered. oxyCODONE (ROXICODONE) immediate release tablet 5 mg 5 mg Every 4 hours PRN, oral, moderate pain (4-6), Starting on Fri12/08/24 at 1244, Look-alike/Sound-alike medication Given 12/08/2024 4:13 PM EDT 5 mg pantoprazole (PROTONIX) EC tablet 40 mg 40 mg 2 times daily, oral, First dose on Fri12/06/24 at 1030, * DO NOT CRUSH THIS DOSAGE FORM * Given 12/14/2024 9:31 AM EDT 40 mg Given 12/13/2024 8:31 PM EDT 40 mg Given 12/13/2024 9:02 AM EDT 40 mg pantoprazole (PROTONIX) injection 40 mg 40 mg Every evening, intravenous, First dose on Fri11/30/24 at 1700, * DILUTE IN 10 ML NS AND GIVE IV SLOWLY OVER 3 MINUTES * Given 11/30/2024 6:15 PM EDT 40 mg pantoprazole (PROTONIX) injection 40 mg 40 mg 2 times daily, intravenous, First dose (after last modification) on Fri12/01/24 at 2100, * DILUTE IN 10 ML NS AND GIVE IV SLOWLY OVER 3 MINUTES * Given 12/06/2024 8:58 AM EDT 40 mg Given 12/05/2024 9:52 PM EDT 40 mg Given 12/05/2024 8:13 AM EDT 40 mg prochlorperazine (COMPAZINE) injection 10 mg 10 mg Every 6 hours PRN, intravenous, nausea, vomiting, Starting on Fri11/30/24 at 0303, If zofran ineffective rifAXIMin (XIFAXAN) tablet 550 mg 550 mg 2 times daily, oral, First dose on Fri11/30/24 at 1130 Given 12/14/2024 9:30 AM EDT 550 mg Given 12/13/2024 8:31 PM EDT 550 mg Given 12/13/2024 9:02 AM EDT 550 mg sodium bicarbonate 8.4 % (1 mEq/mL) injection syringe 100 mEq 100 mEq Once, intravenous, On Fri12/07/24 at 1130, For 1 dose Given 12/07/2024 12:32 PM EDT 100 mEq sodium chloride 0.9 % infusion 20 mL/hr Once, intravenous, On Denise 12/02/24 at 1000, For 1 dose, Used to prep and flush blood tubing before and in between units of blood. Rate/Dose Verify 12/02/2024 10:15 PM EDT 20 mL/hr 20 mL/hr New Bag 12/02/2024 1:18 PM EDT 20 mL/hr 20 mL/hr sodium chloride flush 10 mL 10 mL As needed, intravenous, line care, Starting on Fri11/30/24 at 0252, Every 8 hours and PRN to flush spironolactone (ALDACTONE) tablet 12.5 mg 12.5 mg Once, oral, On 12/04/24 at 1130, For 1 dose, Caution: Recommend wearing gloves during administration. DO NOT BREAK/CRUSH/CHEW. Employees who are , trying to become , or should not handle this medication. Dispose of trace medication (including packaging) in the BLACK waste bin. Given 12/04/2024 11:41 AM EDT 12.5 mg spironolactone (ALDACTONE) tablet 12.5 mg 12.5 mg Once, oral, On Fri12/05/24 at 0930, For 1 dose, Caution: Recommend wearing gloves during administration. DO NOT BREAK/CRUSH/CHEW. Employees who are , trying to become , or should not handle this medication. Dispose of trace medication (including packaging) in the BLACK waste bin. Given 12/05/2024 9:49 AM EDT 12.5 mg spironolactone (ALDACTONE) tablet 12.5 mg 12.5 mg Every other day, oral, First dose on Fri12/07/24 at 1130, Caution: Recommend wearing gloves during administration. DO NOT BREAK/CRUSH/CHEW. Employees who are , trying to become , or should not handle this medication. Dispose of trace medication (including packaging) in the BLACK waste bin. Given 12/07/2024 12:33 PM EDT 12.5 mg spironolactone (ALDACTONE) tablet 12.5 mg 12.5 mg Daily, oral, First dose (after last modification) on Denise 12/09/24 at 0900, Caution: Recommend wearing gloves during administration. DO NOT BREAK/CRUSH/CHEW. Employees who are , trying to become , or should not handle this medication. Dispose of trace medication (including packaging) in the BLACK waste bin. Given 12/14/2024 9:30 AM EDT 12.5 mg Given 12/13/2024 9:03 AM EDT 12.5 mg Given 12/12/2024 8:40 AM EDT 12.5 mg spironolactone (ALDACTONE) tablet 25 mg 25 mg Daily, oral, First dose on Fri11/30/24 at 0900, Caution: Recommend wearing gloves during administration. DO NOT BREAK/CRUSH/CHEW. Employees who are , trying to become , or should not handle this medication. Dispose of trace medication (including packaging) in the BLACK waste bin. Given 11/30/2024 8:11 AM EDT 25 mg tamsulosin (FLOMAX) capsule 0.4 mg 0.4 mg Every evening, oral, First dose on 12/11/24 at 1700, * DO NOT CRUSH THIS DOSAGE FORM * Given 12/14/2024 4:08 PM EDT 0.4 mg Given 12/13/2024 4:48 PM EDT 0.4 mg Given 12/12/2024 4:06 PM EDT 0.4 mg documented in this encounter Active and Recently Administered Medications Times are shown in EDT. Scheduled Medication Order 12/12/2024 12/13/2024 12/14/2024 amiodarone (PACERONE) tablet 200 mg 200 mg Daily, oral, First dose on Fri12/04/24 at 1130 0840 (Given - Provider: Mary Lou Sidhu RN) 09 (Given - Provider: Olimpia Mcmillan, DAYANARA) 0930 (Given - Provider: Olimpia Mcmillan, DAYANARA) atorvastatin (LIPITOR) tablet 20 mg 20 mg Every Night, oral, First dose on Fri11/30/24 at 2100 2144 (Given - Provider: Alberto Bernal RN) 2030 (Given - Provider: Jamal Lopez RN) bumetanide (BUMEX) tablet 2 mg 2 mg 2 times daily, oral, First dose (after last modification) on Fri12/10/24 at 1300 0839 (Given - Provider: Mary Lou Sidhu RN)2144 (Given - Provider: Alberto Bernal RN) 0903 (Given - Provider: Olimpia Mcmillan, DAYANARA)2030 (Given - Provider: Jamal Lopez RN) 0930 (Given - Provider: Olimpia Mcmillan RN) ergocalciferol (DRISDOL) capsule 50,000 Units 50,000 Units Every 7 days, oral, First dose on Fri11/30/24 at 1400, * DO NOT CRUSH THIS DOSAGE FORM * 1607 (Given - Provider: Olimpia Mcmillan RN) gabapentin (NEURONTIN) capsule 100 mg 100 mg 3 times daily, oral, First dose (after last modification) on Fri12/07/24 at 1500 0840 (Given - Provider: Mary Lou Sidhu RN)1515 (Given - Provider: Mary Lou Sidhu RN)2144 (Given - Provider: Alberto Bernal RN) 0903 (Given - Provider: Olimpia Mcmillan RN)1420 (Given - Provider: Olimpia Mcmillan RN)2030 (Given - Provider: Jamal Lopez RN) 0930 (Given - Provider: Olimpia Mcmillan, DAYANARA)1608 (Given - Provider: Olimpia Mcmillan RN) insulin lispro (HUMALOG, ADMELOG) injection 0-18 Units 0-18 Units 4 times daily (before meals and nightly), subcutaneous, First dose on Fri11/30/24 at 0730, If Blood Sugar is less than 180 beteween 9000-5835, DO NOT give corrective insulin unless otherwise ordered. Corrective Scale C 0 units for fingerstick blood glucose LESS than 140 mg/dL 3 units subcutaneously once for fingerstick blood glucose [140] - [180] mg/dL 6 units subcutaneously once for fingerstick blood glucose [181] - [220] mg/dL 9 units subcutaneously once for fingerstick blood glucose [221] - [260] mg/dL 12 units subcutaneously once for fingerstick blood glucose [261] - [300] mg/dL 15 units subcutaneously once for fingerstick blood glucose [301] - [350] mg/dL 18 units subcutaneously once for fingerstick blood glucose [351] - [400] mg/dL Notify provider of glucose levels LESS than [70] and GREATER than [400] 0636 (Given - Provider: Nuria Patel RN)1211 (Given - Provider: Mary Lou Sidhu RN)1609 (Given - Provider: Mary Lou Sidhu RN)2204 (Given - Provider: Alberto Bernal RN) 0637 (Not Given - Provider: Jamal Lopez RN - Reason: Order parameters not met)1314 (Given - Provider: Olimpia Mcmillan RN)1648 (Given - Provider: Olimpia Mcmillan RN)2038 (Given - Provider: Jamal Lopez RN) 0647 (Not Given - Provider: Jamal Lopez RN - Reason: Order parameters not met)1102 (Given - Provider: Olimpia Mcmillan RN)1608 (Given - Provider: Olimpia Mcmillan RN) lactulose (CHRONULAC) 10 gram/15 mL solution 10 g 10 g 2 times daily, oral, First dose (after last modification) on Fri12/05/24 at 2100 0840 (Given - Provider: Mary Lou Sidhu RN)2149 (Given - Provider: Alberto Bernal RN) 0902 (Given - Provider: Olimpia Mcmillan RN)203 (Given - Provider: Jamal Lopez RN) 0931 (Given - Provider: Olimpia Mcmillan RN) metOLazone (ZAROXOLYN) tablet 2.5 mg 2.5 mg Daily, oral, First dose (after last reorder) on 12/11/24 at 1030 0858 (Given - Provider: Mary Lou Sidhu RN) 0903 (Given - Provider: Olimpia Mcmillan RN) 0930 (Given - Provider: Olimpia Mcmillan RN) pantoprazole (PROTONIX) EC tablet 40 mg 40 mg 2 times daily, oral, First dose on 12/06/24 at 1030, * DO NOT CRUSH THIS DOSAGE FORM * 0840 (Given - Provider: Mary Lou Sidhu RN)2144 (Given - Provider: Alberto Bernal RN) 09 (Given - Provider: Olimpia Mcmillan, DAYANARA)2030 (Given - Provider: Jamal Lopez, DAYANARA) 0931 (Given - Provider: Olimpia Mcmillan, RN) rifAXIMin (XIFAXAN) tablet 550 mg 550 mg 2 times daily, oral, First dose on Fri11/30/24 at 1130 0840 (Given - Provider: Mary Lou Sidhu RN)2144 (Given - Provider: Alberto Bernal RN) 09 (Given - Provider: Olimpia Mcmillan, DAYANARA)2030 (Given - Provider: Jamal Lopez, DAYANARA) 0930 (Given - Provider: Olimpia Mcmillan, DAYANARA) sodium chloride 0.9 % infusion(Linked Group 1) 20 mL/hr Once, intravenous, On Fri12/01/24 at 0530, For 1 dose, Used to prep and flush blood tubing before and in between units of blood. spironolactone (ALDACTONE) tablet 12.5 mg 12.5 mg Daily, oral, First dose (after last modification) on Fri12/09/24 at 0900, Caution: Recommend wearing gloves during administration. DO NOT BREAK/CRUSH/CHEW. Employees who are , trying to become , or should not handle this medication. Dispose of trace medication (including packaging) in the BLACK waste bin. 0840 (Given - Provider: Mary Lou Sidhu RN) 09 (Given - Provider: Olimpia Mcmillan, DAYANARA) 0930 (Given - Provider: Olimpia Mcmillan, DAYANARA) tamsulosin (FLOMAX) capsule 0.4 mg 0.4 mg Every evening, oral, First dose on 12/11/24 at 1700, * DO NOT CRUSH THIS DOSAGE FORM * 1606 (Given - Provider: Mary Lou Sidhu RN) 1648 (Given - Provider: Olimpia Mcmillan, DAYANARA) 1608 (Given - Provider: Olimpia Mcmillan, DAYANARA) PRN Medication Order 12/12/2024 12/13/2024 12/14/2024 acetaminophen (TYLENOL) tablet 500 mg 500 mg Every 4 hours PRN, oral, fever greater than or equal to 38C, mild pain (1-3), Starting on Fri11/30/24 at 0303, Recommended maximum dose of acetaminophen is 4000 mg from all sources in 24 hours albuterol 2.5 mg /3 mL (0.083 %) nebulizer solution 2.5 mg 2.5 mg Every 6 hours PRN, nebulization, wheezing, Starting on Fri11/30/24 at 0410, RESPIRATORY THERAPY TREATMENT , What is the respiratory therapy Modality? Small volume Nebulization ammonium lactate (LAC-HYDRIN) lotion 12% topical, As needed, dry skin, Starting on Fri11/30/24 at 0408 benzocaine-menthoL (CEPACOL) lozenge 1 lozenge 1 lozenge Every 2 hour PRN, buccal, sore throat, Starting on Fri12/04/24 at 0807 dextrose 50% (D50W) injection 25 g 25 g Every 15 min PRN, intravenous, low blood glucose (specify value in prn comments), less than 41 mg/dL or 41-69 mg/dL and unable to take PO, Starting on Fri11/30/24 at 0401, Repeat blood glucose every 15 minutes until blood glucose greater than 70 mg/dL. Call Provider if not resolved after 2 treatments Repeat BS in 1 hour, retime for 1 hour after blood sugar greater than 70 mg/dL If less than 41: Repeat Finger stick within 5 minutes with same machine Send serum glucose level: Do not wait on lab to treat glucagon injection 1 mg 1 mg Every 15 min PRN, intraMUSCULAR, low blood glucose (specify value in prn comments), For Patients without IV access and blood glucose 41-69 mg/dL AND unable to take PO OR Less than 41 mg/dL, Starting on Fri11/30/24 at 0401, Caution: glucagon . Roll patient on their side when administering to prevent aspiration. Call Provider if not resolved after 2 treatments Repeat BS in 1 hour, retime for 1 hour after blood sugar greater than 70 mg/dL glucose chew tab 16 g 16 g Every 15 min PRN, oral, low blood glucose (specify value in prn comments), 41-69 mg/dL, Starting on Fri11/30/24 at 0401, For Patients who can take oral AND blood glucose 41-69 mg/dL Give 4 Tabs every 15 minutes. Recheck blood glucose every 15 minutes and repeat 15 grams of carbohydrates until blood glucose is above 70 mg/dL. Give Meal or Snack Call Provider if not resolved after 3 treatments Repeat BS in 1 hour, retime for 1 hour after blood sugar greater than 70 mg/dL hydrALAZINE (APRESOLINE) injection 10 mg 10 mg Every 6 hours PRN, intravenous, hypertension (sbp greater than 160), Starting on Fri11/30/24 at 0303, Hold if SBP < 100 mmHg, DBP < 50 mmHg, or patient is on pressor. Look-alike/Sound-alike medication melatonin tablet 3 mg 3 mg Every Night PRN, oral, insomnia, Starting on Fri11/30/24 at 0302, On hold since Fri12/07/2024 at 1419 until manually unheld 1800 (Unheld by prov ider - Provider: Automatic Discharge Provider) ondansetron (ZOFRAN) injection 4 mg(Linked Group 2) 4 mg Every 8 hours PRN, intravenous, nausea, vomiting, Starting on Fri11/30/24 at 0302, Give IV if patient is unable to take orally. 1st line If inadequate response within 60 minutes, proceed to next-line agent for same PRN reason or contact provider if no further options ordered. For IV push, give over 2 - 5 minutes. ondansetron (ZOFRAN-ODT) disintegrating tablet 4 mg(Linked Group 2) 4 mg Every 8 hours PRN, oral, nausea, vomiting, Starting on Fri11/30/24 at 0302, 1st line. If inadequate response within 60 minutes, proceed to next-line agent for same PRN reason or contact provider if no further options ordered. oxyCODONE (ROXICODONE) immediate release tablet 5 mg 5 mg Every 4 hours PRN, oral, moderate pain (4-6), Starting on Fri12/08/24 at 1244, Look-alike/Sound-alike medication prochlorperazine (COMPAZINE) injection 10 mg 10 mg Every 6 hours PRN, intravenous, nausea, vomiting, Starting on Fri11/30/24 at 0303, If zofran ineffective sodium chloride flush 10 mL(Linked Group 3) 10 mL As needed, intravenous, line care, Starting on Fri11/30/24 at 0252, Every 8 hours and PRN to flush Linked Groups Order Group 1: Prepare RBC: 1 Units (COMPLETED) Routine, Prepare 1 Units And Transfuse RBC: 1 Units (COMPLETED) Routine, Transfuse 1 Units And sodium chloride 0.9 % infusionJump to med 20 mL/hr Once, intravenous, On Fri12/01/24 at 0530, For 1 dose, Used to prep and flush blood tubing before and in between units of blood. Group 2: ondansetron (ZOFRAN-ODT) disintegrating tablet 4 mgJump to med 4 mg Every 8 hours PRN, oral, nausea, vomiting, Starting on Fri11/30/24 at 0302, 1st line. If inadequate response within 60 minutes, proceed to next-line agent for same PRN reason or contact provider if no further options ordered. Or ondansetron (ZOFRAN) injection 4 mgJump to med 4 mg Every 8 hours PRN, intravenous, nausea, vomiting, Starting on Fri11/30/24 at 0302, Give IV if patient is unable to take orally. 1st line If inadequate response within 60 minutes, proceed to next-line agent for same PRN reason or contact provider if no further options ordered. For IV push, give over 2 - 5 minutes. Group 3: Insert Peripheral IV (CANCELED) STAT, Once, On Fri11/30/24 at 0253, For 1 occurrence And Saline Lock IV (CANCELED) Routine, Once, On Fri11/30/24 at 025, For 1 occurrence And sodium chloride flush 10 mLJump to med 10 mL As needed, intravenous, line care, Starting on Fri11/30/24 at 0252, Every 8 hours and PRN to flush documented in this encounter Care Teams [employer] Relationship Specialty Start Date End Date [facility] Connection, [facility] [place] [address] PCP - General 11/30/24 12/13/24 Provider, Not In System [place] PCP - General 12/14/24 documented as of this encounter
--- OUTSIDE RECORDS SUMMARY | 2024-12-01 08:55 | XMS_ITS | Encounter Summary ---
Author Organization [facility] In iatives Address [address] [place] [address] Care Team Providers Care Md Urologist Name Role Phone [facility] Francesca, Find-A-Doc Primary Care Provider Reason for Visit * Auth/Cert (Routine) Specialty Diagnoses / Procedures Referred By Mayela may Referred To Contact Diagnoses Anasarca ACUTE RENAL FAILURE [address] Medical Telemetry Unit [address] [place] [phone] Phone: tel: fax: [address] Medical Telemetry Unit [address] [place] [phone] Phone: tel: fax: Referral ID Status Reason Start Date Expiration Date Visits Re quested Visits Authorized [id number] 1 1 Encounter Details Date Type Department Care Team (Late st Contact Info) Description 12/01/2024 8:55 AM EDT Anesthesia Event [facility] Endoscopy 1 [place] [address] Ashtyn Sanchez MD [address] [place] [address] Anesthesia Record Procedure Summary Procedure Name Responsible [...] your living situation today? I have a [facility] place to live 11/30/2024 Think about [...] Do you speak a language other than Montenegrin at [facility]? No 11/30/2024 Do you want help with [...] CRNA - 12/01/2024 9:43 AM EDT Patient: Mary Coronel Procedure Summary Date: 12/01/24 Room / Location: [facility] ENDO [facility] ENDO Anesthesia Start: 08 Anesthesia Stop: Procedure: [...] status: nasal cannula Hydration status: stable Color: [place] Activity: Moves 4 extremities Inotropes/Vasopressors: N/A No [...] Coronel Date/Time: 12/01/24918 Procedure: ESOPHAGOGASTRODUODENOSCOPY (EGD) Location: [facility] ENDO 03 / [facility] ENDO Surgeons: Scott Daley MD Vitals: 12/01/24 [...] abdomen, abdominal pain, BLE edema, transferred to [facility] for hepatorenal syndrome evaluation. Hx dark, tarry [...] (DOPPLER / COLOR) W OR WO CONTRAST [[id number]] Collected: 11/30/24 0725 Order Status: Completed Updated: 11/30/24 104 Narrative: TRANSTHORACIC ECHOCARDIOGRAPHY REPORT Demographics Patient Name: RIN JONES : 1960 Age: 64 year(s) Corporate ID Number: [id number] Gender Female Catering Administrative Assistant: Giovanna Rock Height: 67 inches [facility] Referring Physician: HUEY RICHARDSON Weight: 225 pounds [...] 1.35 m/s E/A ratio: 0.97 m/s Volume [id number] LV length: 8.51 cm ml Volume .96 [...] Valve TR velocity: 2.51 m/s TR gradient: 25.52751 mmHg Estimated RAP: 3 mmHg RVSP: 28.12 [...] risks discussed with patient. Plan discussed with HVAC MECHANICAL ENGINEER. documented in this encounter Plan of Treatment Upcoming Encounters Date Type Department Care Team (Late st Contact Info) Description 01/27/2025 10:45 AM EDT Office Visit [facility] Electrophysiology [address] [place] [phone] Quincy Foss MD [address] [place] [address] [address] [place] [address] documented as of this encounter Procedures Procedure Name Priority Date/Time Associated Diagnosis Comments ANESTHESIA INTUBATION Routine 12/01/2024 9:01 AM EDT documented in this encounter Results * AN SINGLE LUMEN INTUBATION (12/01/2024 9:01 AM EDT) Rolo Watson CRNA - 12/01/2024 9:01 AM EDT Rolo Stauffer CRNA 12/01/2024 9:07 AM Intubation Authorized by: Ashtny Sanchez MD Performed by: Rolo Stauffer CRNA [...] mg documented in this encounter Care Teams Md Urologist Relationship Specialty Start Date End Date [facility] Connection, Find-A-Doc [facility] [place] [address] PCP - General 11/30/24 12/13/24 documented as of this encounter
--- OUTSIDE RECORDS SUMMARY | 2024-12-01 09:19 | XMS_ITS | Encounter Summary ---
Author Organization [facility] Address [address] [place] [address] Care Team Providers Care Scheme Technician Name Role Phone [facility] Connection, Find-A-Doc Primary Care Provider Reason for Visit * Auth/Cert (Routine) Specialty Diagnoses / Procedures Referred By Mayela may Referred To Contact Diagnoses Anasarca ACUTE RENAL FAILURE [address] Medical Telemetry Unit [address] [place] [phone] Phone: tel: fax: [address] Medical Telemetry Unit [address] [place] [phone] Phone: tel: fax: Referral ID Status Reason Start Date Expiration Date Visits Re quested Visits Authorized [id number] 1 1 Encounter Details Date Type Department Care Team (Late st Contact Info) Description 12/01/2024 9:19 AM EDT - 12/01/2024 9:50 AM EDT Surgery [facility] Endoscopy [address] [place] [address] Scott Daley MD [address] [place] [address] EGD, WITH FOREIGN BODY REMOVAL Social History [...] your living situation today? I have a [facility] place to live 11/30/2024 Think about [...] Do you speak a language other than Turkish at [facility]? 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 Patient presented to [facility] with swollen abdomen, abdominal discomfort and bilateral lower extremity pitting edema.Patient's BUN/creatinine elevated, and patient subsequently transferred to [facility] for hepatorenal syndrome evaluation. Admits to [...] days. Patient's niece forced patient to visit [facility] emergency room today she really loves [...] a bone marrow biopsy which was unremarkable. Negley that she had anemia of chronic disease [...] These medications were sent to [facility] at [facility] [address] [place] [address] [address] [facility] [address], [facility] [address] amiodarone 200 MG tablet ergocalciferol 1,250 mcg (50,000 unit) capsule lactulose 10 gram/15 mL solution pantoprazole 40 MG tablet rifAXIMin 550 mg These medications were sent to [place] [id number] [place] [address] [facility] [address] metOLazone 2.5 MG tablet tamsulosin 0.4 mg [...] Contact information for follow-up [facility] [address] Next Steps: Go in 2 week(s) Instructions: Nephrology follow up 12/30/24 @8:45am Follow up with NAL in 1-2 weeks with renal function panel Primary care provider (PCP) Next Steps: Follow up Monika Hernandez APRN [facility] Primary Care [address] [place] [id number] Next Steps: Go in 1 week(s) Instructions: PCP follow up 12/22/24 @3:00pm Time Spent on Discharge: I spent 35 minutes in njbz-wx-vdga time with the patient and nursing staffconcerning [...] CAD, arthritis. Patient presented to [facility] with swollen abdomen, abdominal discomfort and bilateral lower extremity pitting edema.Patient's BUN/creatinine elevated, and patient subsequently transferred to [facility] for hepatorenal syndrome evaluation. Admits to [...] days. Patient's niece forced patient to visit [facility] emergency room today she really loves [...] These medications were sent to [facility] at [address] [address] amiodarone 200 MG tablet amoxicillin-clavulanate 500-125 mg [...] to 2-week Nephrology 1 to 2-week Disposition intermediate facility Time Spent: 45 min Electronically signed [...] as of this encounter Progress Notes * Laura Cervantes MD - 12/14/2024 1:33 PM EDT [...] Labs Lab(s) Units 12/14/24 0254 12/13/24 03112/12/24 034 WBC K/??L 1.4* 1.4* 1.4* HGB GM/DL 7.6* 7.4* 7.3* PLT K/CU MM 51* 52* 43* Recent Labs Lab(s) Units 12/14/24 02512/13/24 0315 12/12/24 0347 12/11/24 0339 12/10/24 0953 [...] renal function - No emergent need of CUTTER INSPECTOR - Monitor H/H and transfuse for Hgb less than 7.0 Follow up with NAL in 1-2 weeks with renal function panel Laura Cervantes MD 12/14/24 12:15 PM * KENNEY [...] additional home health needs. Patient/family provided with [facility] approved choice list and Patient choice [...] oral Every Night 20 mg at 12/12/24 214 bumetanide 2 mg oral BID 2 mg [...] tablet 2 mg 2 mg oral BID Laura Cervantes MD 2 mg at 12/13/24 0903 [...] tablet 2.5 mg 2.5 mg oral Daily Laura Cervantes MD 2.5 mg at 12/13/24 0903 [...] Hematology/oncology following. Acute hypoxemic/hypercapnic respiratory failure - Negley to be due to pulmonary edema from [...] SNF/Rehab, etc): TBD Signed: Brad Coffman PA-C [facility] Hospitalist * Rea Bishop RD - 12/13/2024 [...] intakes reported. 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 Requested chicken noodle soup for lunch. Agreeable to ONS TID. Past Medical/Surgical History: Past Medical History: Diagnosis Date Cirrhosis, non-alcoholic (HCC) Diabetes mellitus (HCC) Hypertension Past Surgical History: Procedure Laterality Date ESOPHAGOGASTRODUODENOSCOPY (EGD),REMOVAL FOREIGN BODY N/A 12/01/2024 Procedure: EGD, WITH FOREIGN BODY REMOVAL; Surgeon: Scott Daley MD; Location: [facility]; Service: Gastroenterology; Laterality: N/A; Vitals and [...] tablet 2 mg 2 mg oral BID Laura Cervantes MD 2 mg at 12/13/24 0903 [...] tablet 2.5 mg 2.5 mg oral Daily Laura Cervantes MD 2.5 mg at 12/13/24 0903 [...] 0.9 % infusion 20 mL/hr intravenous Deacon Laresell, sodium chloride flush 10 mL 10 mL [...] with severity: none Energy intake hx: good call out clerk (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 She initially presented to [facility] with swollen abdomen, abdominal discomfort, and bilateral lower extremity pain. Her creatinine was elevated and as a result, she was transferred to [facility] for he patorenal syndrome. Upon [...] ABG 7.28, pCO2 51, pO2 157 BiPAP 10/. Patient refused higher pressure Plan for paracentesis, [...] BODY REMOVAL; Surgeon: Scott Daley MD; Location: [facility]; Service: Gastroenterology; Laterality: N/A; Allergies: No [...] POC-GLUCOSE 127 (H) 70 - 110 mg/dL Bankruptcy Processor [id number] Glucose, Nova Meter Status: Abnormal Collection Time: 12/13/24 11:15 AM Result Value Ref Range POC-GLUCOSE 221 (H) 70 - 110 mg/dL Bankruptcy Processor [id number] Glucose, Nova Meter Status: Abnormal Collection Time: 12/13/24 4:24 PM Result Value Ref Range POC-GLUCOSE 156 (H) 70 - 110 mg/dL Bankruptcy Processor [id number] Glucose, Nova Meter Status: Abnormal Collection Time: 12/13/24 8:20 PM Result Value Ref Range POC-GLUCOSE 186 (H) 70 - 110 mg/dL Bankruptcy Processor [id number] Radiology Radiology Results (last day) No results found for the last 24 hours. Microbiology: Microbiology Results (last 7 days) Procedure Component Value Units Date/Time Fungus Culture W/ROSA MARIA Or Nimisha Ink [[id number]] Collected: 11/30/24 1603 Order Status: Completed Specimen: Peritoneal Fluid from Body Fluid Updated: 12/07/24 1700 Result No fungus isolated at 1 week. ROSA MARIA Prep No fungal elements seen Narrative: Specimen Description: peritoneal fluid AFB Culture And Stain [[id number]] Collected: 11/30/24 1603 Order Status: Completed Specimen: [...] to continue with albumin/diuretics no indication for CUTTER INSPECTOR No significant pleural effusion for thoracentesis If needed repeat chest x-ray. Otherwise continue diuresis Pulmonary will sign off. Please call for any issues Case discussed during round. I have personally evaluated the patient and performed a dwfy-pl-awyd diagnostic evaluation on this patient; I have reviewed history, performed physical examination, reviewed laboratory studies. , andreviewed images independent of radiologist. I have actively directed the medical care, formulated assessemnt and plan of care. Patient requires a high complexity of decision making for assessment. Voice restaurant culinary manager technology ([employer]) is used for dictation of this note and sound-alike words might be erroneously placed despite reviewing the note for accuracy.Errors in dictation may reflect use of voice recognition software and not all errors in restaurant culinary manager may have been detectedprior to signing * Laura Cervantes MD - 12/13/2024 11:12 AM EDT [...] renal function - No emergent need of CUTTER INSPECTOR - Monitor H/H and transfuse for Hgb less than 7.0 Follow up with NAL in 1-2 weeks with renal function panel Laura Cervantes MD 12/13/24 12:15 PM * Jayde [...] Gar Admission Date: 11/30/2024 Primary Care Provider: [facility] Find-a-Doc Chief Complaint/Reason for Consult: No chief complaint on file. History of Present Illness: Mary Gar is a 64 y.o. female, admitted on: 11/30/2024 1:43 AM. presented to [facility] with swollen abdomen, abdominal discomfort and bilateral lower extremity pitting edema. Patient's BUN/creatinine elevated, and patient subsequently transferred to [facility] for hepatorenal syndrome evaluation. Admits to 4 [...] mg oral TID 100 mg at 12/12/24 2144 insulin lispro 0-18 Units subcutaneous 4x Daily AC 6 Units at 12/12/24 2204 lactulose 10 g oral BID 10 g at 12/12/24 2149 metOLazone 2.5 mg oral Daily 2.5 mg at 12/12/24 0858 pantoprazole 40 mg oral BID 40 mg at 12/12/24 2144 rifAXIMin 550 mg oral BID 550 mg at 12/12/24 2144 spironolactone 12.5 mg oral Daily 12.5 mg [...] tablet 2 mg 2 mg oral BID Laura Cervantes MD 2 mg at 12/12/242143 dextrose [...] tablet 2.5 mg 2.5 mg oral Daily Laura Cervantes MD 2.5 mg at 12/12/24 0858 [...] And Stain AFB Culture And Stain [facility] Non-Cone Former Cytology [facility] Former Cytology DIFFERENTIAL, BODY FLUID DIFFERENTIAL, BODY FLUID Body Fluid/CSF - Path Review () Body Fluid/CSF - Path Review () [facility] BONE MARROW SMEAR, ASPIRATION, AND STAIN [facility] BONE MARROW SMEAR, ASPIRATION, AND STAIN CANCELED: [...] BODY REMOVAL; Surgeon: Scott Daley MD; Location: [facility]; Service: Gastroenterology; Laterality: N/A; Allergies: No [...] Normal range of motion. Integumentary: Warm, Dry, [place]. Neurologic: No obvious focal deficit Psychiatric: Cooperative, Appropriate mood & affect. Labs, Imaging, and Other Studies: Echo Results (last 7 days) Procedure Component Value Units Date/Time ECHO COMPLETE (DOPPLER / COLOR) W OR WO CONTRAST [[id number]] Collected: 11/30/24724 Order Status: Completed Updated: 11/30/241045 Narrative: TRANSTHORACIC ECHOCARDIOGRAPHY REPORT Demographics Patient Name: RIN JONES : 1960 Age: 64 year(s) Corporate ID Number: [id number] Gender Female Highway Safety Engineer: Giovanna Rock Height: 67 inches [facility] Referring Physician: HUEY HURTADO Weight: 225 pounds Interpreting JESSICA RAYMOND MD BMI: 35.24 kg/m^2 Physician: Date of Service: 11/30/2024 Blood Pressure: 118/59 mmHg Room Number: 579 Type of Study: TTE procedure: ECHO COMPLETE (DOPPLER / COLOR) W OR WO CONTRAST. Patient Status: Routine IP [facility]quate [facility] History/Tech Notes: Indication: [...] 1.35 m/s E/A ratio: 0.97 m/s Volume srfljunny531.99 LV length: 8.51 cm ml Volume .96 [...] Valve TR velocity: 2.51 m/s TR gradient: 25.95605 mmHg Estimated RAP: 3 mmHg RVSP: 28.12 [...] (DOPPLER / COLOR) W OR WO CONTRAST [[id number]] Collected: 11/30/24724 Order Status: Completed Updated: 11/30/24 104 Narrative: TRANSTHORACIC ECHOCARDIOGRAPHY REPORT Demographics Patient Name: RIN JONES : 1960 Age: 64 year(s) Corporate ID Number: [id number] Gender Female Highway Safety Engineer: Giovanna Rock Height: 67 inches [facility] Referring Physician: HUEY HURTADO Weight: 225 pounds [...] 1.35 m/s E/A ratio: 0.97 m/s Volume bdulvulep649.99 LV length: 8.51 cm ml Volume hzyvknwp71.96 ml LVOT diameter: 1.79 cm Normal sized [...] Valve TR velocity: 2.51 m/s TR gradient: 25.35725 mmHg Estimated RAP: 3 mmHg RVSP: 28.12 [...] imaging. Assessment and Plan: *Paroxysmal Atrial Fib [id number] of 3 to 4 also have some [...] Patient cannot take anticoagulation for A-fib despite [id number] because of multiple issue including GI bleeding [...] Zaragoza - 12/13/2024 8:25 AM EDTSummary: [facility] Pending Discharge Plan Progress Note Case Management received call from Vesna Gibson (phone # [phone]) meeting coordinator with [facility] requesting notes from weekend. CM faxed weekend notes via [place] to Ez Gibson to fax # [phone]. Patient will require a precert if a bed is offered. Update, 12/13, 3:07 pm Patient and family's first choice, [facility] have denied patient due to not being able to meet and accommodate patient's clinical needs. No information regarding how. Update 3:45 pm - Per facility's admission land surveyor manager, patient is requiring BiPaP 'too much' (/ per facility words), requiring a paracentesis too often, no activity tolerance, therefore patient is not rehab appropriate. CM asked [facility] to review referral to inquire about [...] purposes. MANGO has updated treatment team via [employer] chat that are signed into patient's chart on 12/13 - QUIQUE, bedside RN, bedside [facility], PT, and OT. Patient has other offers from the following: [facility] - [place], [place]; offered bed prior to [facility]; follow up with Rama via [facility] & [place], [place] KENNEY Zaragoza * Norm Cameron MD - 12/12/2024 8:47 PM EDT EP progress note Patient Name: Mary Gar Admission Date: 11/30/2024 Primary Care Provider: [facility] Find-a-Doc Chief Complaint/Reason for Consult: No chief complaint on file. History of Present Illness: Mary Gar is a 64 y.o. female, admitted on: 11/30/2024 1:43 AM. presented to [facility] with swollen abdomen, abdominal discomfort and bilateral lower extremity pitting edema. Patient's BUN/creatinine elevated, and patient subsequently transferred to [facility] for[facility]. Admits to 4 weeks of [...] tablet 2 mg 2 mg oral BID Laura Cervantes MD 2 mg at 12/12/24 0839 [...] tablet 2.5 mg 2.5 mg oral Daily Laura Cervantes MD 2.5 mg at 12/12/24 0858 [...] And Stain AFB Culture And Stain [facility] Former Cytology [facility] Former Cytology DIFFERENTIAL, BODY FLUID DIFFERENTIAL, BODY FLUID Body Fluid/CSF - Path Review () Body Fluid/CSF - Path Review () [facility] BONE MARROW SMEAR, ASPIRATION, AND STAIN [facility] BONE MARROW SMEAR, ASPIRATION, AND STAIN CANCELED: [...] BODY REMOVAL; Surgeon: Scott Daley MD; Location: [facility]; Service: Gastroenterology; Laterality: N/A; Allergies: No [...] Normal range of motion. Integumentary: Warm, Dry, [place]. Neurologic: No obvious focal deficit Psychiatric: Cooperative, Appropriate mood & affect. Labs, Imaging, and Other Studies: Echo Results (last 7 days) Procedure Component Value Units Date/Time ECHO COMPLETE (DOPPLER / COLOR) W OR WO CONTRAST [[id number]] Collected: 11/30/24724 Order Status: Completed Updated: 11/30/24 1046 Narrative: TRANSTHORACIC ECHOCARDIOGRAPHY REPORT Demographics Patient Name: RIN JONES : 1960 Age: 64 year(s) Corporate ID Number: [id number] Gender Female Highway Safety Engineer: Giovanna Rock Height: 67 inches [facility] Referring Physician: HUEY HURTADO Weight: 225 pounds [...] 1.35 m/s E/A ratio: 0.97 m/s Volume khwfyxelq263.99 LV length: 8.51 cm ml Volume aqfvxdel58.96 ml LVOT diameter: 1.79 cm Normal sized [...] Valve TR velocity: 2.51 m/s TR gradient: 25.65656 mmHg Estimated RAP: 3 mmHg RVSP: 28.12 [...] including malabsorption, drug interactions, and alcoholic hepatitis. Particle has become aware of sulfasalazine and sulfapyridine [...] (DOPPLER / COLOR) W OR WO CONTRAST [[id number]] Collected: 11/30/24 0725 Order Status: Completed Updated: 11/30/24 1046 Narrative: TRANSTHORACIC ECHOCARDIOGRAPHY REPORT Demographics Patient Name: RIN JONES : 1960 Age: 64 year(s) Corporate ID Number: [id number] Gender Female Highway Safety Engineer: Giovanna Rock Height: 67 inches [facility] Referring Physician: HUEY HURTADO Weight: 225 pounds Interpreting JESSICA RAYMOND MD BMI: 35.24 kg/m^2 Physician: Date of Service: 11/30/2024 Blood Pressure: 118/59 mmHg Room Number: 579 Type of Study: TTE procedure: ECHO COMPLETE (DOPPLER / COLOR) W OR WO CONTRAST. Patient Status: Routine IP [facility]quate [facility] History/Tech Notes: Indication: [...] .99 LV length: 8.51 cm ml Volume essqbcji55.96 ml LVOT diameter: 1.79 cm Normal sized [...] Valve TR velocity: 2.51 m/s TR gradient: 25.75134 mmHg Estimated RAP: 3 mmHg RVSP: 28.12 [...] imaging. Assessment and Plan: *Paroxysmal Atrial Fib [id number] of 3 to 4 also have some [...] Patient cannot take anticoagulation for A-fib despite BAT2YY6-FADs because of multiple issue including GI bleeding [...] on a standing scale 194 lb. * Laura Cervantes MD - 12/12/2024 11:32 AM EDT [...] renal function - No emergent need of CUTTER INSPECTOR - Monitor H/H and transfuse for Hgb less than 7.0 Follow up with NAL in 1-2 weeks with renal function panel Laura Cervantes MD 12/12/24 12:15 PM * David [...] tablet 2 mg 2 mg oral BID Laura Cervantes MD 2 mg at 12/12/24 0839 [...] tablet 2.5 mg 2.5 mg oral Daily Laura Cervantes MD 2.5 mg at 12/12/24 0858 [...] Hematology/oncology following. Acute hypoxemic/hypercapnic respiratory failure - Negley to be due to pulmonary edema from [...] Huey Hurtado MD 20 mg at 12/10/24 210 benzocaine-menthoL (CEPACOL) lozenge 1 lozenge 1 lozenge buccal Q2H PRN Timothy Bai MD bumetanide (BUMEX) tablet 2 mg 2 mg oral BID Laura Cervantes MD 2 mg at 12/11/24 0841 [...] tablet 2.5 mg 2.5 mg oral Daily Laura Cervantes MD ondansetron (ZOFRAN-ODT) disintegrating tablet 4 [...] Hematology/oncology following. Acute hypoxemic/hypercapnic respiratory failure - Negley to be due to pulmonary edema from [...] SNF/Rehab, etc): TBD Signed: Brad Coffman PA-C [facility] Hospitalist * Laura Cervantes MD - 12/11/2024 10:08 AM EDT [...] renal function - No emergent need of CUTTER INSPECTOR - Monitor H/H and transfuse for Hgb less than 7.0 Follow up with NAL in 1-2 weeks with renal function panel Laura Cervantes MD 12/11/24 12:15 PM * Darek Contreras OTR/Amada - 12/10/2024 2:43 PM EDT Images from [...] BODY REMOVAL; Surgeon: Scott Daley MD; Location: [facility]; Service: Gastroenterology; Laterality: N/A; General Visit type: Treatment Approved by: Nurse Metzger Patient disposition upon entry: Patient verified by name, Patient verified by date of , Supinein bed Co-treated by: MARKET DEVELOPMENT SPECIALIST Assisted by: certified physician assistant Precautions Weightbearing status: No restrictions [...] had BM and pt returned to EOB. RN OBSERVATION entered room to assist. Pt was able [...] Mcgill this morning via phone. Family prefers [facility] ([place] [facility]), as they live 10-20minutes away from facility. HAYDEN contacted meeting coordinator via text, number provided by family, phone # [phone]. farhan [place]orga, fax # [phone]. CM sent updated referral. Patient will need [...] [facility] KENNEY Zaragoza * Laura Cervantes MD - 12/10/2024 12:15 PM EDT [...] renal function - No emergent need of CUTTER INSPECTOR - Monitor H/H and transfuse for Hgb less than 7.0 Follow up with NAL in 1-2 weeks with renal function panel Laura Cervantes MD 12/10/24 12:15 PM * Venkatesh [...] POC-GLUCOSE 162 (H) 70 - 110 mg/dL Bankruptcy Processor [id number] ABG Status: Abnormal Collection Time: 12/10/24 6:42 [...] 8.5 (L) 12.0 - 18.0 g/dL [facility] COLLECTION SITE Left Radial Arterial Puncture Yes [...] POC-GLUCOSE 195 (H) 70 - 110 mg/dL Bankruptcy Processor [id number] Glucose, Nova Meter Status: Abnormal Collection Time: 12/10/24 6:32 PM Result Value Ref Range POC-GLUCOSE 235 (H) 70 - 110 mg/dL Bankruptcy Processor [id number] Glucose, Nova Meter Status: Abnormal Collection Time: 12/10/24 7:38 PM Result Value Ref Range POC-GLUCOSE 201 (H) 70 - 110 mg/dL Bankruptcy Processor [id number] US paracentesis Narrative: ULTRASOUND-GUIDED PARACENTESIS HISTORY: Ascites. ATTENDING PHYSICIAN: Dr. Haseeb Gil PHYSICIAN INTERNET SECURITY SPECIALIST: Sujit Blackman PA-C FINDINGS: After informed consent [...] Pending blood gas improvement And more awake apartment property manager working discharge plan, likely dc 1-2 days pending improvement, plan for paracentesis today * Deysi Foss MD - 12/10/2024 8:13 AM EDT EP progress note Patient Name: Mary Gar Admission Date: 11/30/2024 Primary Care Provider: [facility] Find-a-Doc Chief Complaint/Reason for Consult: No chief complaint on file. History of Present Illness: Mary Gar is a 64 y.o. female, admitted on: 11/30/2024 1:43 AM. presented to [facility] with swollen abdomen, abdominal discomfort and bilateral lower extremity pitting edema. Patient's BUN/creatinine elevated, and patient subsequently transferred to [facility] for hepatorenal syndrome evaluation. Admits to [...] And Stain AFB Culture And Stain [facility] Non[facility] Former Cytology [facility] Former Cytology DIFFERENTIAL, BODY FLUID DIFFERENTIAL, BODY FLUID Body Fluid/CSF - Path Review () Body Fluid/CSF - Path Review () [facility] BONE MARROW SMEAR, ASPIRATION, AND STAIN [facility] BONE MARROW SMEAR, ASPIRATION, AND STAIN CANCELED: [...] BODY REMOVAL; Surgeon: Scott Daley MD; Location: [facility]; Service: Gastroenterology; Laterality: N/A; Allergies: No [...] Normal range of motion. Integumentary: Warm, Dry, [place]. Neurologic: No obvious focal deficit Psychiatric: Cooperative, Appropriate mood & affect. Labs, Imaging, and Other Studies: Echo Results (last 7 days) Procedure Component Value Units Date/Time ECHO COMPLETE (DOPPLER / COLOR) W OR WO CONTRAST [[id number]] Collected: 11/30/24 9078 Order Status: Completed Updated: 11/30/24 1046 Narrative: TRANSTHORACIC ECHOCARDIOGRAPHY REPORT Demographics Patient Name: RIN JONES : 1960 Age: 64 year(s) Corporate ID Number: [id number] Gender Female Highway Safety Engineer: Giovanna Rock Height: 67 inches [facility] Referring Physician: HUEY HURTADO Weight: 225 pounds Interpreting JESSICA RAYMOND MD BMI: 35.24 kg/m^2 Physician: Date of Service: 11/30/2024 Blood Pressure: 118/59 mmHg Room Number: 579 Type of Study: TTE procedure: ECHO COMPLETE (DOPPLER / COLOR) W OR WO CONTRAST. Patient Status: Routine IP [facility]: Adequate visualization History/Tech Notes: Indication: shortness [...] 1.35 m/s E/A ratio: 0.97 m/s Volume urxwflgci423.99 LV length: 8.51 cm ml Volume aspitebs39.96 ml LVOT diameter: 1.79 cm Normal sized [...] Valve TR velocity: 2.51 m/s TR gradient: 25.63679 mmHg Estimated RAP: 3 mmHg RVSP: 28.12 [...] (DOPPLER / COLOR) W OR WO CONTRAST [[id number]] Collected: 11/30/24724 Order Status: Completed Updated: 11/30/241045 Narrative: TRANSTHORACIC ECHOCARDIOGRAPHY REPORT Demographics Patient Name: RIN JONES : 1960 Age: 64 year(s) Corporate ID Number: [id number] Gender Female Highway Safety Engineer: Giovanna Rock Height: 67 inches [facility] Referring Physician: HUEY HURTADO Weight: 225 pounds [...] 1.35 m/s E/A ratio: 0.97 m/s Volume [id number] LV length: 8.51 cm ml Volume ibrgexpx85.96 ml LVOT diameter: 1.79 cm Normal sized [...] Valve TR velocity: 2.51 m/s TR gradient: 25.71164 mmHg Estimated RAP: 3 mmHg RVSP: 28.12 [...] imaging. Assessment and Plan: *Paroxysmal Atrial Fib [id number] of 3 to 4 also have some [...] Patient cannot take anticoagulation for A-fib despite [id number] because of multiple issue including GI bleeding [...] history as below. She initially presented to [facility] with swollen abdomen, abdominal discomfort, and bilateral lower extremity pain. Her creatinine was elevated and as a result, she was transferred to [facility] for he patorenal syndrome. Upon [...] BODY REMOVAL; Surgeon: Scott Daley MD; Location: [facility]; Service: Gastroenterology; Laterality: N/A; Allergies: No [...] 8.7 (L) 12.0 - 18.0 g/dL [facility] COLLECTION SITE Left Radial Arterial Puncture Yes Blood Gas O2 Delivery Device Cannula Oxygen Flow Rate 4 Blood Gas PT Temperature C 37.0 Sen's Test Acceptable Critical Values Notification Critical Blood gas called to DAYANARA MILES . [place] [id number] and confirmed on12/09/2024 06:51 ABG Number of Draw Attempts 1 FIO2 Blood Gas Temperature Corrected Results No No Glucose, Nova Meter Status: Abnormal Collection Time: 12/09/24 11:17 AM Result Value Ref Range POC-GLUCOSE 173 (H) 70 - 110 mg/dL Bankruptcy Processor [id number] Glucose, Nova Meter Status: Abnormal Collection Time: 12/09/24 4:23 PM Result Value Ref Range POC-GLUCOSE 173 (H) 70 - 110 mg/dL Bankruptcy Processor [id number] Glucose, Nova Meter Status: Abnormal Collection Time: 12/09/24 7:30 PM Result Value Ref Range POC-GLUCOSE 158 (H) 70 - 110 mg/dL Bankruptcy Processor [id number] Glucose, Nova Meter Status: Abnormal Collection Time: 12/10/24 5:52 AM Result Value Ref Range POC-GLUCOSE 162 (H) 70 - 110 mg/dL Bankruptcy Processor [id number] Radiology Radiology Results (last day) Procedure Component Value Units Date/Time XR chest AP portable [[id number]] Collected: 12/09/24 0844 Order Status: Completed Updated: [...] Fungus Culture W/ROSA MARIA Or Nimisha Ink [[id number]] Collected: 11/30/24 160 Order Status: Completed Specimen: Peritoneal Fluid from Body Fluid Updated: 12/07/24 170 Result No fungus isolated at 1 week. ROSA MARIA Prep No fungal elements seen Narrative: Specimen Description: peritoneal fluid AFB Culture And Stain [[id number]] Collected: 11/30/241602 Order Status: Completed Specimen: Peritoneal Fluid from Body Fluid Updated: 12/07/24 170 Result No Acid Fast Bacilli isolated at 1 week. AFB Smear No acid fast bacilli seen Narrative: Specimen Description: peritoneal fluid Anaerobic Culture [[id number]] Collected: 11/30/24 160 Order Status: Completed Specimen: Peritoneal Fluid from Body Fluid Updated: 12/05/24 0634 Result No Anaerobic growth Narrative: Specimen Description: peritoneal fluid Blood Culture [[id number]] Collected: 11/30/24 0340 Order Status: Completed Specimen: Blood from Arm, Left Updated: 12/05/24 0501 Result No growth in 5 days Blood Culture [[id number]] Collected: 11/30/24 0342 Order Status: Completed Specimen: Blood from Arm, Right Updated: 12/05/24 0501 Result No growth in 5 days Body Fluid Culture + Gram Stain [[id number]] Collected: 11/30/24 160 Order Status: Completed Specimen: Peritoneal Fluid from Body Fluid Updated: 12/03/24 0907 Result No growth Gram Stain Result No organisms seen No cells seen Narrative: Specimen Description: peritoneal fluid Body Fluid/CSF - Path Review () [[id number]] Collected: 11/30/24 160 Order Status: Completed Specimen: [...] to continue with albumin/diuretics no indication for CUTTER INSPECTOR No significant pleural effusion for thoracentesis If needed repeat chest x-ray. Otherwise continue diuresis Pulmonary continue to follow Case discussed during round. I have personally evaluated the patient and performed a nbtk-av-kmsp diagnostic evaluation on this patient; I have reviewed history, performed physical examination, reviewed laboratory studies. , andreviewed images independent of radiologist. I have actively directed the medical care, formulated assessemnt and plan of care. Patient requires a high complexity of decision making for assessment. 34 minutes critical care time was spent. Voice restaurant culinary manager technology ([employer]ot[employer]) is used for dictation of this note and sound-alike words might be erroneously placed despite reviewing the note for accuracy.Errors in dictation may reflect use of voice recognition software and not all errors in restaurant culinary manager may have been detectedprior to signing * [...] POC-GLUCOSE 159 (H) 70 - 110 mg/dL Bankruptcy Processor [id number] Glucose, Nova Meter Status: Abnormal Collection Time: 12/08/24 8:08 PM Result Value Ref Range POC-GLUCOSE 172 (H) 70 - 110 mg/dL Bankruptcy Processor [id number] Basic Metabolic Panel Status: Abnormal Collection Time: [...] POC-GLUCOSE 148 (H) 70 - 110 mg/dL Bankruptcy Processor [id number] ABG Status: Abnormal Collection Time: 12/09/24 6:37 [...] 8.7 (L) 12.0 - 18.0 g/dL [facility] COLLECTION SITE Left Radial Arterial Puncture Yes Blood Gas O2 Delivery Device Cannula Oxygen Flow Rate 4 Blood Gas PT Temperature C 37.0 Sen's Test Acceptable Critical Values Notification Critical Blood gas called to DAYANARA MILES . Results [place] [id number] and confirmed on12/09/2024 06:51 ABG Number of Draw Attempts 1 FIO2 Blood Gas Temperature Corrected Results No No Glucose, Nova Meter Status: Abnormal Collection Time: 12/09/24 11:17 AM Result Value Ref Range POC-GLUCOSE 173 (H) 70 - 110 mg/dL Bankruptcy Processor [id number] XR chest AP portable Narrative: PORTABLE CHEST. [...] Pending blood gas improvement And more awake apartment property manager working discharge plan * Tori Kamara [...] Ext: +++ Pedal edema , no cyanosis ADOPTION SERVICES MANAGER: Alert, No focal deficit noted grossly Psy: Cooperative Labs: Results for orders placed or performed during the hospital encounter of 11/30/24 (from the past 24 hours) Glucose, Nova Meter Status: Abnormal Collection Time: 12/08/24 10:57 AM Result Value Ref Range POC-GLUCOSE 191 (H) 70 - 110 mg/dL Bankruptcy Processor [id number] Glucose, Nova Meter Status: Abnormal Collection Time: 12/08/24 3:34 PM Result Value Ref Range POC-GLUCOSE 159 (H) 70 - 110 mg/dL Bankruptcy Processor [id number] Glucose, Nova Meter Status: Abnormal Collection Time: 12/08/24 8:08 PM Result Value Ref Range POC-GLUCOSE 172 (H) 70 - 110 mg/dL Bankruptcy Processor [id number] Basic Metabolic Panel Status: Abnormal Collection Time: [...] POC-GLUCOSE 148 (H) 70 - 110 mg/dL Bankruptcy Processor [id number] ABG Status: Abnormal Collection Time: 12/09/24 6:37 [...] 8.7 (L) 12.0 - 18.0 g/dL [facility] COLLECTION SITE Left Radial Arterial Puncture Yes Blood Gas O2 Delivery Device Cannula Oxygen Flow Rate 4 Blood Gas PT Temperature C 37.0 Sen's Test Acceptable Critical Values Notification Critical Blood gas called to DAYANARA MILES . [place] [id number] and confirmed on12/09/2024 06:51 ABG Number of [...] Intake/Output Summary (Last 24 hours) at 12/09/2024 0912 Last data filed at 12/09/2024 0300 Gross [...] renal function - No emergent need of CUTTER INSPECTOR - Monitor H/H and transfuse for Hgb less than 7.0 Discussed with patient Follow up with [facility] in 1-2 weeks with renal function panel * KENNEY Zaragoza - 12/09/2024 8:04 AM EDTSummary: Referral Pending Discharge Plan Progress Note Family/Sister prefers [facility]. SW/CM sent referral this AM. Currently pending. [facility] [address] [place] [address] [place] [address] KENNEY Zaragoza * Blanka Malaogn MD - 12/09/2024 6:30 AM EDT Images from the original note were not included. PULMONARY AND CRITICAL CARE Consult Note Date of Service: 12/09/2024 HPI: This is a 64 y.o. year old female with past medical history as below. She initially presented to [facility] with swollen abdomen, abdominal discomfort, and bilateral lower extremity pain. Her creatinine was elevated and as a result, she was transferred to [facility] for he patorenal syndrome. Upon [...] BODY REMOVAL; Surgeon: Scott Daley MD; Location: [facility]; Service:Gastroenterology; Laterality: N/A; Allergies: No Known [...] 8.8 (L) 12.0 - 18.0 g/dL [facility] COLLECTION SITE Right Brachial Arterial Puncture Yes Blood Gas O2 Delivery Device Cannula Oxygen Flow Rate 4 Blood Gas PT Temperature C 37.0 Sen's Test Not Applicable Critical Values Notification Critical Blood gas called to KNOWN CONDITION . Results acknowledged/read back to [id number] and confirmed on 12/08/2024 07:30 ABG Number of Draw Attempts 1 FIO2 Blood Gas Temperature Corrected Results No No Glucose, Nova Meter Status: Abnormal Collection Time: 12/08/24 10:57 AM Result Value Ref Range POC-GLUCOSE 191 (H) 70 - 110 mg/dL Bankruptcy Processor [id number] Glucose, Nova Meter Status: Abnormal Collection Time: 12/08/24 3:34 PM Result Value Ref Range POC-GLUCOSE 159 (H) 70 - 110 mg/dL Bankruptcy Processor [id number] Glucose, Nova Meter Status: Abnormal Collection Time: 12/08/24 8:08 PM Result Value Ref Range POC-GLUCOSE 172 (H) 70 - 110 mg/dL Bankruptcy Processor [id number] Basic Metabolic Panel Status: Abnormal Collection Time: [...] POC-GLUCOSE 148 (H) 70 - 110 mg/dL Bankruptcy Processor [id number] Radiology Radiology Results (last day) No results found for the last 24 hours. Microbiology: Microbiology Results (last 7 days) Procedure Component Value Units Date/Time Fungus Culture W/ROSA MARIA Or Nimisha Ink [[id number]] Collected: 11/30/24 1603 Order Status: Completed Specimen: Peritoneal Fluid from Body Fluid Updated: 12/07/24 1700 Result No fungus isolated at 1 week. ROSA MARIA Prep No fungal elements seen Narrative: Specimen Description: peritoneal fluid AFB Culture And Stain [[id number]] Collected: 11/30/24 1603 Order Status: Completed Specimen: Peritoneal Fluid from Body Fluid Updated: 12/07/24 1700 Result No Acid Fast Bacilli isolated at 1 week. AFB Smear No acid fast bacilli seen Narrative: Specimen Description: peritoneal fluid Anaerobic Culture [[id number]] Collected: 11/30/24 1603 Order Status: Completed Specimen: Peritoneal Fluid from Body Fluid Updated: 12/05/24 0634 Result No Anaerobic growth Narrative: Specimen Description: peritoneal fluid Blood Culture [[id number]] Collected: 11/30/24 0340 Order Status: Completed Specimen: Blood from Arm, Left Updated: 12/05/24 0501 Result No growth in 5 days Blood Culture [[id number]] Collected: 11/30/24 0342 Order Status: Completed Specimen: Blood from Arm, Right Updated: 12/05/24 0501 Result No growth in 5 days Body Fluid Culture + Gram Stain [[id number]] Collected: 11/30/24 1603 Order Status: Completed Specimen: Peritoneal Fluid from Body Fluid Updated: 12/03/24 0907 Result No growth Gram Stain Result No organisms seen No cells seen Narrative: Specimen Description: peritoneal fluid Body Fluid/CSF - Path Review () [[id number]] Collected: 11/30/24 160 Order Status: Completed Specimen: [...] ABG 7.28, pCO2 51, pO2 157, BiPAP 05/02, FiO2 35% alternating with 2 L nasal cannula Diurese with Bumex increased dose 1 mg 3 times daily planning for paracentesis Augmentin broad-spectrum antibiotic Repeating ABG, chest x-ray a.m. Picture of volume overload likely related to combination of acute diastolic heart failure/renal failure/ascites with volume overload anasarca/pericardial effusion/ascites/lower extremity edema Nephrology following, recommended to continue with albumin/diuretics no indication for CUTTER INSPECTOR No significant pleural effusion for thoracentesis If needed repeat chest x-ray. Otherwise continue diuresis Pulmonary twill follow . If ABG not improving ,or worsening mental status recommended ICU Case discussed during round. I have personally evaluated the patient and performed a pjvt-su-onsi diagnostic evaluation on this patient; I have reviewed history, performed physical examination, reviewed laboratory studies. , andreviewed images independent of radiologist. I have actively directed the medical care, formulated assessemnt and plan of care. Patient requires a high complexity of decision making for assessment. 34 minutes critical care time was spent. Voice restaurant culinary manager technology (Depot[employer]) is used for dictation of this note and sound-alike words might be erroneously placed despite reviewing the note for accuracy.Errors in dictation may reflect use of voice recognition software and not all errors in restaurant culinary manager may have been detectedprior to signing * Virginia Haynes RN - 12/08/2024 5:47 PM EDT Mary Kay valverden provided care and documentation on patient with [...] Readiness for SNF - Bed Offer with [facility] Discharge Plan Progress Note SW/MANGO updated Rama T with [facility] regarding patient's ICU transfer cancellation.CM to follow up with Rama on 12/09 with updated PT/OT notes, MD progress notes of patients care, BiPaP/RT plan. [facility] is still offering bed for patient. Precert will be needed, [facility]. SW/MANGO has attempted to call patient's sister, Jojo Dominguez x3 times, at # listed, , however, CM is experiencing phone issues and unable to call out. CM has informed bedside RN and [facility] via [employer]. KENNEY Zaragoza * KENNEY Zaragoza - 12/08/2024 1:29 PM EDTSummary: CM Assessment Care Coordination Initial Assessment Patient's readmit score is low at 12%. CM plan was to DC home/independent at baseline or with family/sister assistance. Sister, Jojo, stated she cannot care for patient if patient was to come homewith her, and patient needed rehab. CM sent referrals, patient had bed offers, [facility] offered bed first and [...] Transition Needs Expected Discharge Date: Off Track [facility] - 12/10-12/12 Home or Post Acute Services Needed: (P) Post acute facilities (Rehab/SNF/etc) Does the patient have the ability to fill and receive their discharge medications: (P) Yes Discharge plan discussed: (P) The discharge plan was discussed with patient motor vehicle field representative. Discharge Barriers: (P) Test(s) Pending, Activity Type of Assistive Devices Needed for Discharge: (P) None Patient Discharge Goal: (P) Inpatient Rehab Facility, Intermediate Facility Mandated Reporting: (P) Not applicable PT/OT/FOOD SERVICE COUNTER CLERK Recommendations PT Recommendations: Pending Hospital Stay OT Recommendations: Pending Hospital Stay FOOD SERVICE COUNTER CLERK Recommendations: NA 12/08/24 1327 Home Environment Type [...] Assistive Devices Walker;Commode Current Lines, Tubes 3L/min [place] Special/Community Services Transport, discharge;Home, assistance Transition Needs Home or Post Acute Services Post acute facilities (Rehab/SNF/etc) Type of Post Acute Facility Services intermediate;Rehab Does the patient have the ability to fill and receive their discharge medications? Yes Discharge Plan Discussed The discharge plan was discussed with patient motor vehicle field representative. Discharge Plan Outcome Patient/family motor vehicle field representative agrees with the discharge plan Discharge Barriers Test(s) Pending;Activity Type of Assistive Devices Needed for Discharge None Patient Discharge Goal Inpatient Rehab Facility;Intermediate Facility Mandated Reporting Not applicable KENNEY Zaragoza * Deysi Foss MD - 12/08/2024 11:29 AM EDT EP progress note Patient Name: Mary Gar Admission Date: 11/30/2024 Primary Care Provider: JACKIE Find-a-Doc Chief Complaint/Reason for Consult: No chief complaint on file. History of Present Illness: Mary Gar is a 64 y.o. female, admitted on: 11/30/2024 1:43 AM. presented to [facility] with swollen abdomen, abdominal discomfort and bilateral lower extremity pitting edema. Patient's BUN/creatinine elevated, and patient subsequently transferred to [facility] for hepatorenal syndrome evaluation. Admits to [...] 40 mg oral BID 40 mg at 12/08/24942 rifAXIMin 550 mg oral BID 550 mg at 12/08/24942 [START ON 12/09/2024] spironolactone 12.5 mg oral [...] Mary Carmen Mcfadden MD 1 tablet at 05/14/25 0943 atorvastatin (LIPITOR) tablet 20 mg 20 mg [...] Timothy Bai MD 10 g at 12/08/24 09 [Held [...] And Stain AFB Culture And Stain [facility] Former Cytology [facility] Former Cytology DIFFERENTIAL, BODY FLUID DIFFERENTIAL, BODY FLUID Body Fluid/CSF - Path Review () Body Fluid/CSF - Path Review () [facility] BONE MARROW SMEAR, ASPIRATION, AND STAIN [facility] BONE MARROW SMEAR, ASPIRATION, AND STAIN CANCELED: [...] BODY REMOVAL; Surgeon: Scott Daley MD; Location: [facility]; Service: Gastroenterology; Laterality: N/A; Allergies: No [...] Normal range of motion. Integumentary: Warm, Dry, [place]. Neurologic: No obvious focal deficit Psychiatric: Cooperative, Appropriate mood & affect. Labs, Imaging, and Other Studies: Echo Results (last 7 days) Procedure Component Value Units Date/Time ECHO COMPLETE (DOPPLER / COLOR) W OR WO CONTRAST [[id number]] Collected: 11/30/24724 Order Status: Completed Updated: 11/30/24 1046 Narrative: TRANSTHORACIC ECHOCARDIOGRAPHY REPORT Demographics Patient Name: RIN JONES : 1960 Age: 64 year(s) Corporate ID Number: [id number] Gender Female Highway Safety Engineer: Giovanna Rock Height: 67 inches [facility] Referring Physician: HUEY HURTADO Weight: 225 pounds Interpreting JESSICA RAYMOND MD BMI: 35.24 kg/m^2 Physician: Date of Service: 11/30/2024 Blood Pressure: 118/59 mmHg Room Number: 579 Type of Study: TTE procedure: ECHO COMPLETE (DOPPLER / COLOR) W OR WO CONTRAST. Patient Status: Routine IP Study Location: [facility] Quality: Adequate visualization History/Tech Notes: Indication: [...] 1.35 m/s E/A ratio: 0.97 m/s Volume oyfloipsv137.99 LV length: 8.51 cm ml Volume iejalifd46.96 ml LVOT diameter: 1.79 cm Normal sized [...] Valve TR velocity: 2.51 m/s TR gradient: 25.79197 mmHg Estimated RAP: 3 mmHg RVSP: 28.12 [...] (DOPPLER / COLOR) W OR WO CONTRAST [[id number]] Collected: 11/30/24724 Order Status: Completed Updated: 11/30/24 104 Narrative: TRANSTHORACIC ECHOCARDIOGRAPHY REPORT Demographics Patient Name: RIN JONES : 1960 Age: 64 year(s) Corporate ID Number: [id number] Gender Female Highway Safety Engineer: Giovanna Rock Height: 67 inches [facility] Referring Physician: HUEY HURTADO Weight: 225 pounds [...] 1.35 m/s E/A ratio: 0.97 m/s Volume uwgeoejdf762.99 LV length: 8.51 cm ml Volume .96 [...] Valve TR velocity: 2.51 m/s TR gradient: 25.45715 mmHg Estimated RAP: 3 mmHg RVSP: 28.12 [...] imaging. Assessment and Plan: *Paroxysmal Atrial Fib [id number] of 3 to 4 also have some [...] Patient cannot take anticoagulation for A-fib despite [id number] because of multiple issue including GI bleeding [...] 1960 Date of Treatment: 12/08/24 Start Time: 1011 Stop Time: 1041 Session Duration: 30 minutes This patient is a 64 y.o. female admitted on 11/30/2024 with Anasarca [R60.1]. Past Medical History: Diagnosis Date Cirrhosis, non-alcoholic (HCC) Diabetes mellitus (HCC) Hypertension Past Surgical History: Procedure Laterality Date ESOPHAGOGASTRODUODENOSCOPY (EGD),REMOVAL FOREIGN BODY N/A 12/01/2024 Procedure: EGD, WITH FOREIGN BODY REMOVAL; Surgeon: Scott Daley MD; Location: [facility]; Service: Gastroenterology; Laterality: N/A; General Visit [...] - 18.0 g/dL PaO2/FIO2 calculated 203.0 [facility] COLLECTION SITE Right Radial Arterial Puncture Yes Blood Gas PT Temperature C 37.0 Sen's Test Acceptable Critical Values Notification Critical Blood gas called to TRAY LORENZ RN . [place] [id number] and confirmed on 12/07/2024 10:51 ABG Number of Draw Attempts 1 FIO2 21.0 Blood Gas Temperature Corrected Results No No Glucose, Nova Meter Status: Abnormal Collection Time: 12/07/24 10:54 AM Result Value Ref Range POC-GLUCOSE 146 (H) 70 - 110 mg/dL Bankruptcy Processor [id number] Blood gas, arterial Status: Abnormal Collection Time: [...] 8.9 (L) 12.0 - 18.0 g/dL [facility] COLLECTION SITE Right Radial Arterial Puncture Yes Blood Gas O2 Delivery Device Cannula Oxygen Flow Rate 2 Blood Gas PT Temperature C 37.0 Sen's Test Unacceptable Vent Mode Other Critical Values Notification Critical Blood gas called to DR MALAGON . [place] [id number] and confirmed on 12/07/2024 14:14 ABG Number of Draw Attempts 1 Performed by: WIL FIO2 Blood Gas Temperature Corrected Results No No Glucose, Nova Meter Status: Abnormal Collection Time: 12/07/24 3:39 PM Result Value Ref Range POC-GLUCOSE 159 (H) 70 - 110 mg/dL Bankruptcy Processor [id number] ABG Status: Abnormal Collection Time: 12/07/24 4:21 [...] - 18.0 g/dL PaO2/FIO2 calculated 359.0 [facility] COLLECTION SITE Right Brachial Arterial Puncture Yes Blood Gas O2 Delivery Device NIV Blood Gas PT Temperature C 37.0 Sen's Test Not Applicable Critical Values Notification Critical Blood gas called to SEB LORENZ RN . Results acknowledged/read back to [id number] and confirmed on 12/07/2024 16:42 ABG Number of Draw Attempts 2 Set Rate 16.0 IPAP 10 EPAP 6 FIO2 50.0 Blood Gas Temperature Corrected Results No No Glucose, Nova Meter Status: Abnormal Collection Time: 12/07/24 7:54 PM Result Value Ref Range POC-GLUCOSE 164 (H) 70 - 110 mg/dL Bankruptcy Processor [id number] Basic Metabolic Panel Status: Abnormal Collection Time: [...] Osmolality Calc 322.3 mOsm/kg CBC - [facility] Status: Abnormal Collection Time: 12/08/24 4:10 [...] POC-GLUCOSE 136 (H) 70 - 110 mg/dL Bankruptcy Processor [id number] Blood gas, arterial Status: Abnormal Collection Time: [...] 8.8 (L) 12.0 - 18.0 g/dL [facility] COLLECTION SITE Right Brachial Arterial Puncture Yes Blood Gas O2 Delivery Device Cannula Oxygen Flow Rate 4 Blood Gas PT Temperature C 37.0 Sen's Test Not Applicable Critical Values Notification Critical Blood gas called to KNOWN CONDITION . Results acknowledged/read back to [id number] and confirmed on 12/08/2024 07:30 ABG Number [...] Pending blood gas improvement And more awake apartment property manager working discharge plan * Hill Boo [...] Ext: +++ Pedal edema , no cyanosis ADOPTION SERVICES MANAGER: Alert, No focal deficit noted grossly Psy: [...] 376 ms QTC Interval 462 ms P [place] 39 degrees R AXIS (MCT) -3 degrees T Wave [place] 4 degrees [place] Diagnosis Normal sinus rhythm Nonspecific T wave [...] - 18.0 g/dL PaO2/FIO2 calculated 203.0 [facility] COLLECTION SITE Right Radial Arterial Puncture Yes Blood Gas PT Temperature C 37.0 Sen's Test Acceptable Critical Values Notification Critical Blood gas called to TRAY LORENZ RN . [place] [id number] and confirmed on 12/07/2024 10:51 ABG Number of Draw Attempts 1 FIO2 21.0 Blood Gas Temperature Corrected Results No No Glucose, Nova Meter Status: Abnormal Collection Time: 12/07/24 10:54 AM Result Value Ref Range POC-GLUCOSE 146 (H) 70 - 110 mg/dL Bankruptcy Processor [id number] Blood gas, arterial Status: Abnormal Collection Time: [...] 8.9 (L) 12.0 - 18.0 g/dL [facility] COLLECTION SITE Right Radial Arterial Puncture Yes Blood Gas O2 Delivery Device Cannula Oxygen Flow Rate 2 Blood Gas PT Temperature C 37.0 Sen's Test Unacceptable Vent Mode Other Critical Values Notification Critical Blood gas called to DR MALAGON . Results [place] [id number] and confirmed on 12/07/2024 14:14 ABG Number of Draw Attempts 1 Performed by: CD FIO2 Blood Gas Temperature Corrected Results No No Glucose, Nova Meter Status: Abnormal Collection Time: 12/07/24 3:39 PM Result Value Ref Range POC-GLUCOSE 159 (H) 70 - 110 mg/dL Bankruptcy Processor [id number] ABG Status: Abnormal Collection Time: 12/07/24 4:21 [...] - 18.0 g/dL PaO2/FIO2 calculated 359.0 [facility] COLLECTION SITE Right Brachial Arterial Puncture Yes Blood Gas O2 Delivery Device NIV Blood Gas PT Temperature C 37.0 Sen's Test Not Applicable Critical Values Notification Critical Blood gas called to SEB LORENZ RN . Results acknowledged/read back to [id number] and confirmed on 12/07/2024 16:42 ABG Number of Draw Attempts 2 Set Rate 16.0 IPAP 10 EPAP 6 FIO2 50.0 Blood Gas Temperature Corrected Results No No Glucose, Nova Meter Status: Abnormal Collection Time: 12/07/24 7:54 PM Result Value Ref Range POC-GLUCOSE 164 (H) 70 - 110 mg/dL Bankruptcy Processor [id number] Basic Metabolic Panel Status: Abnormal Collection Time: [...] POC-GLUCOSE 136 (H) 70 - 110 mg/dL Bankruptcy Processor [id number] Blood gas, arterial Status: Abnormal Collection Time: [...] 8.8 (L) 12.0 - 18.0 g/dL [facility] COLLECTION SITE Right Brachial Arterial Puncture Yes Blood Gas O2 Delivery Device Cannula Oxygen Flow Rate 4 Blood Gas PT Temperature C 37.0 Sen's Test Not Applicable Critical Values Notification Critical Blood gas called to KNOWN CONDITION . Results acknowledged/read back to [id number] and confirmed on 12/08/2024 07:30 ABG Number [...] renal function - No emergent need of CUTTER INSPECTOR - Monitor H/H and transfuse for Hgb [...] history as below. She initially presented to [facility] with swollen abdomen, abdominal discomfort, and bilateral lower extremity pain. Her creatinine was elevated and as a result, she was transferred to [facility] for he patorenal syndrome. Upon [...] BODY REMOVAL; Surgeon: Scott Daley MD; Location: [facility]; Service: Gastroenterology; Laterality: N/A; Allergies: No [...] 376 ms QTC Interval 462 ms P [place] 39 degrees R AXIS (MCT) -3 degrees T Wave [place] 4 degrees [place] Diagnosis Normal sinus rhythm Nonspecific T wave [...] - 18.0 g/dL PaO2/FIO2 calculated 203.0 [facility] COLLECTION SITE Right Radial Arterial Puncture Yes Blood Gas PT Temperature C 37.0 Sen's Test Acceptable Critical Values Notification Critical Blood gas called to TRAY LORENZ RN . [place] [id number] and confirmed on 12/07/2024 10:51 ABG Number of Draw Attempts 1 FIO2 21.0 Blood Gas Temperature Corrected Results No No Glucose, Nova Meter Status: Abnormal Collection Time: 12/07/24 10:54 AM Result Value Ref Range POC-GLUCOSE 146 (H) 70 - 110 mg/dL Bankruptcy Processor [id number] Blood gas, arterial Status: Abnormal Collection Time: [...] 8.9 (L) 12.0 - 18.0 g/dL [facility] COLLECTION SITE Right Radial Arterial Puncture Yes Blood Gas O2 Delivery Device Cannula Oxygen Flow Rate 2 Blood Gas PT Temperature C 37.0 Sen's Test Unacceptable Vent Mode Other Critical Values Notification Critical Blood gas called to DR MALAGON . [place] [id number] and confirmed on 12/07/2024 14:14 ABG Number of Draw Attempts 1 Performed by: CD FIO2 Blood Gas Temperature Corrected Results No No Glucose, Nova Meter Status: Abnormal Collection Time: 12/07/24 3:39 PM Result Value Ref Range POC-GLUCOSE 159 (H) 70 - 110 mg/dL Bankruptcy Processor [id number] ABG Status: Abnormal Collection Time: 12/07/24 4:21 [...] - 18.0 g/dL PaO2/FIO2 calculated 359.0 [facility] COLLECTION SITE Right Brachial Arterial Puncture Yes Blood Gas O2 Delivery Device NIV Blood Gas PT Temperature C 37.0 Sen's Test Not Applicable Critical Values Notification Critical Blood gas called to SEB LORENZ RN . Results acknowledged/read back to [id number] and confirmed on 12/07/2024 16:42 ABG Number of Draw Attempts 2 Set Rate 16.0 IPAP 10 EPAP 6 FIO2 50.0 Blood Gas Temperature Corrected Results No No Glucose, Nova Meter Status: Abnormal Collection Time: 12/07/24 7:54 PM Result Value Ref Range POC-GLUCOSE 164 (H) 70 - 110 mg/dL Bankruptcy Processor [id number] Basic Metabolic Panel Status: Abnormal Collection Time: [...] POC-GLUCOSE 136 (H) 70 - 110 mg/dL Bankruptcy Processor [id number] Blood gas, arterial Status: Abnormal Collection Time: [...] 8.8 (L) 12.0 - 18.0 g/dL [facility] COLLECTION SITE Right Brachial Arterial Puncture Yes Blood Gas O2 Delivery Device Cannula Oxygen Flow Rate 4 Blood Gas PT Temperature C 37.0 Sen's Test Not Applicable Critical Values Notification Critical Blood gas called to KNOWN CONDITION . Results acknowledged/read back to [id number] and confirmed on 12/08/2024 07:30 ABG Number of Draw Attempts 1 FIO2 Blood Gas Temperature Corrected Results No No Radiology Radiology Results (last day) Procedure Component Value Units Date/Time XR chest AP portable [[id number]] Collected: 12/07/24 1550 Order Status: Completed Updated: 12/07/24 164 Narrative: PORTABLE CHEST; HISTORY: Renal failure. COMPARISON: [...] Fungus Culture W/ROSA MARIA Or Nimisha Ink [[id number]] Collected: 11/30/24 1603 Order Status: Completed Specimen: Peritoneal Fluid from Body Fluid Updated: 12/07/24 170 Result No fungus isolated at 1 week. ROSA MARIA Prep No fungal elements seen Narrative: Specimen Description: peritoneal fluid AFB Culture And Stain [[id number]] Collected: 11/30/24 1603 Order Status: Completed Specimen: Peritoneal Fluid from Body Fluid Updated: 12/07/24 170 Result No Acid Fast Bacilli isolated at 1 week. AFB Smear No acid fast bacilli seen Narrative: Specimen Description: peritoneal fluid Anaerobic Culture [[id number]] Collected: 11/30/24 1603 Order Status: Completed Specimen: Peritoneal Fluid from Body Fluid Updated: 12/05/24 0634 Result No Anaerobic growth Narrative: Specimen Description: peritoneal fluid Blood Culture [[id number]] Collected: 11/30/24 0340 Order Status: Completed Specimen: Blood from Arm, Left Updated: 12/05/24 0501 Result No growth in 5 days Blood Culture [[id number]] Collected: 11/30/24 0342 Order Status: Completed Specimen: Blood from Arm, Right Updated: 12/05/24 0501 Result No growth in 5 days Body Fluid Culture + Gram Stain [[id number]] Collected: 11/30/24 1603 Order Status: Completed Specimen: Peritoneal Fluid from Body Fluid Updated: 12/03/24 0907 Result No growth Gram Stain Result No organisms seen No cells seen Narrative: Specimen Description: peritoneal fluid Body Fluid/CSF - Path Review () [[id number]] Collected: 11/30/24 160 Order Status: Completed Specimen: [...] to continue with albumin/diuretics no indication for CUTTER INSPECTOR No significant pleural effusion for thoracentesis If needed repeat chest x-ray. Otherwise continue diuresis Pulmonary twill follow . If ABG not improving ,or worsening mental status recommended ICU Case discussed during round. I have personally evaluated the patient and performed a temp-jy-vnen diagnostic evaluation on this patient; I have reviewed history, performed physical examination, reviewed laboratory studies. , andreviewed images independent of radiologist. I have actively directed the medical care, formulated assessemnt and plan of care. Patient requires a high complexity of decision making for assessment. 34 minutes critical care time was spent. Voice restaurant culinary manager technology ([employer]) is used for dictation of this note and sound-alike words might be erroneously placed despite reviewing the note for accuracy.Errors in dictation may reflect use of voice recognition software and not all errors in restaurant culinary manager may have been detectedprior to signing * [...] 11/30/2024 1:43 AM. presented to [facility] with swollen abdomen, abdominal discomfort and bilateral lower extremity pitting edema. Patient's BUN/creatinine elevated, and patient subsequently transferred to [facility] for hepatorenal syndrome evaluation. Admits to [...] mg oral Every Night 20 mg at 12/06/242099 bumetanide 1 mg oral Daily 1 mg [...] Night Huey Hurtado MD 20 mg at 12/06/242099 benzocaine-menthoL (CEPACOL) lozenge 1 lozenge 1 lozenge [...] capsule 200 mg 200 mg oral TID Alejandrelaura Boo MD 200 mg at 12/07/24 0936 [...] And Stain AFB Culture And Stain [facility] Former Cytology [facility] Former Cytology DIFFERENTIAL, BODY FLUID DIFFERENTIAL, BODY FLUID Body Fluid/CSF - Path Review () Body Fluid/CSF - Path Review () [facility] BONE MARROW SMEAR, ASPIRATION, AND STAIN [facility] BONE MARROW SMEAR, ASPIRATION, AND STAIN CANCELED: [...] BODY REMOVAL; Surgeon: Scott Daley MD; Location: [facility]; Service: Gastroenterology; Laterality: N/A; Allergies: No [...] Normal range of motion. Integumentary: Warm, Dry, [place]. Neurologic: No obvious focal deficit Psychiatric: Cooperative, Appropriate mood & affect. Labs, Imaging, and Other Studies: Echo Results (last 7 days) Procedure Component Value Units Date/Time ECHO COMPLETE (DOPPLER / COLOR) W OR WO CONTRAST [[id number]] Collected: 11/30/24 0725 Order Status: Completed Updated: 11/30/24 1046 Narrative: TRANSTHORACIC ECHOCARDIOGRAPHY REPORT Demographics Patient Name: RIN JONES : 1960 Age: 64 year(s) Corporate ID Number: [id number] Gender Female Highway Safety Engineer: Giovanna Rock Height: 67 inches [facility] Referring Physician: HUEY HURTADO Weight: 225 pounds [...] 1.35 m/s E/A ratio: 0.97 m/s Volume wzoqcgaez863.99 LV length: 8.51 cm ml Volume egqdshhj61.96 ml LVOT diameter: 1.79 cm Normal sized [...] Valve TR velocity: 2.51 m/s TR gradient: 25.64903 mmHg Estimated RAP: 3 mmHg RVSP: 28.12 [...] (DOPPLER / COLOR) W OR WO CONTRAST [[id number]] Collected: 11/30/24724 Order Status: Completed Updated: 11/30/24 104 Narrative: TRANSTHORACIC ECHOCARDIOGRAPHY REPORT Demographics Patient Name: RIN JONES : 1960 Age: 64 year(s) Corporate ID Number: [id number] Gender Female Highway Safety Engineer: Giovanna Rock Height: 67 inches [facility] Referring Physician: HUEY HURTADO Weight: 225 pounds [...] 1.35 m/s E/A ratio: 0.97 m/s Volume oykcvbjkb539.99 LV length: 8.51 cm ml Volume wpiapoor19.96 ml LVOT diameter: 1.79 cm Normal sized [...] Valve TR velocity: 2.51 m/s TR gradient: 25.14741 mmHg Estimated RAP: 3 mmHg RVSP: 28.12 [...] imaging. Assessment and Plan: *Paroxysmal Atrial Fib [id number] of 2 also have some wide-complex tachycardia [...] 378 ms QTC Interval 462 ms P [place] 28 degrees R AXIS (MCT) -4 degrees T Wave [place] 21 degrees [place] Diagnosis Normal sinus rhythm Septal infarct , age undetermined Abnormal ECG When compared with ECG of 04-DEC-2024 20:08, Septal infarct is now present Nonspecific T wave abnormality no longer evident in Anterior leads Glucose, Nova Meter Status: Abnormal Collection Time: 12/06/24 4:06 PM Result Value Ref Range POC-GLUCOSE 134 (H) 70 - 110 mg/dL Bankruptcy Processor [id number] Glucose, Nova Meter Status: Abnormal Collection Time: 12/06/24 7:26 PM Result Value Ref Range POC-GLUCOSE 170 (H) 70 - 110 mg/dL Bankruptcy Processor [id number] CBC - Hemogram (SJ-BKR) Status: Abnormal Collection [...] POC-GLUCOSE 159 (H) 70 - 110 mg/dL Bankruptcy Processor [id number] ECG 12 lead Status: None (In process) Collection Time: 12/07/24 10:29 AM Result Value Ref Range VENTRICULAR RATE EKG/MIN 91 BPM ATRIAL RATE (MCT) 91 BPM MI Interval 142 ms QRS-INTERVAL (MSEC) 88 ms QT Interval 376 ms QTC Interval 462 ms P [place] 39 degrees R AXIS (MCT) -3 degrees T Wave [place] 4 degrees [place]isne Diagnosis Normal sinus rhythm Nonspecific T wave abnormality Abnormal ECG When compared with ECG of 06-DEC-2024 13:16, No significant change was found Glucose, Nova Meter Status: Abnormal Collection Time: 12/07/24 10:54 AM Result Value Ref Range POC-GLUCOSE 146 (H) 70 - 110 mg/dL Bankruptcy Processor [id number] XR chest AP portable Narrative: PORTABLE CHEST; [...] ordered Need to be transferred to ICU apartment property manager working discharge plan * Lian Dominguez [...] Orientation: Anterior;Left Site Assessment Red;Yellow Olinda-Wound Assessment [place] Odor None Pressure Injury Stage 2 Wound care performing NDNQI rounds. Patient on JORJE surface, agreeable to assessment. During head totoe skin inspection a MDRPI found on patients left anterior thigh due to urinary catheter tubing. MDRPI verified by second wound care merchandise flow team leader. [facility] RN recommends cleansing site with NS, [...] Ext: +++ Pedal edema , no cyanosis ADOPTION SERVICES MANAGER: Alert, No focal deficit noted grossly Psy: Cooperative Labs: Results for orders placed or performed during the hospital encounter of 11/30/24 (from the past 24 hours) Glucose, Nova Meter Status: Abnormal Collection Time: 12/06/24 10:36 AM Result Value Ref Range POC-GLUCOSE 150 (H) 70 - 110 mg/dL Bankruptcy Processor [id number] ECG 12 lead Status: None (In process) Collection Time: 12/06/24 1:16 PM Result Value Ref Range VENTRICULAR RATE EKG/MIN 90 BPM ATRIAL RATE (MCT) 90 BPM MI Interval 142 ms QRS-INTERVAL (MSEC) 92 ms QT Interval 378 ms QTC Interval 462 ms P [place] 28 degrees R AXIS (MCT) -4 degrees T Wave [place] 21 degrees [place]isne Diagnosis Normal sinus rhythm Septal infarct , age undetermined Abnormal ECG When compared with ECG of 04-DEC-2024 20:08, Septal infarct is now present Nonspecific T wave abnormality no longer evident in Anterior leads Glucose, Nova Meter Status: Abnormal Collection Time: 12/06/24 4:06 PM Result Value Ref Range POC-GLUCOSE 134 (H) 70 - 110 mg/dL Bankruptcy Processor [id number] Glucose, Nova Meter Status: Abnormal Collection Time: 12/06/24 7:26 PM Result Value Ref Range POC-GLUCOSE 170 (H) 70 - 110 mg/dL Bankruptcy Processor [id number] CBC - Hemogram (SJ-BKR) Status: Abnormal Collection [...] POC-GLUCOSE 159 (H) 70 - 110 mg/dL Bankruptcy Processor [id number] XR chest AP portable Narrative: PORTABLE CHEST; [...] for GFR - No emergent need of CUTTER INSPECTOR - Monitor H/H and transfuse for Hgb [...] Gar Admission Date: 11/30/2024 Primary Care Provider: [facility] Find[facility]Doc Chief Complaint/Reason for Consult: No chief complaint on file. History of Present Illness: Mary Gar is a 64 y.o. female, admitted on: 11/30/2024 1:43 AM. presented to [facility] with swollen abdomen, abdominal discomfort and bilateral lower extremity pitting edema. Patient's BUN/creatinine elevated, and patient subsequently transferred to [facility] for hepatorenal syndrome evaluation. Admits to [...] 550 mg 550 mg oral BID Destiney Matteo Llanes APRN 550 mg at 12/06/24 0857 sodium chloride 0.9 % infusion 20 mL/hr intravenous Once Denilson Gokul, sodium chloride flush 10 mL 10 mL [...] And Stain AFB Culture And Stain [facility] Former Cytology [facility] Former Cytology DIFFERENTIAL, BODY FLUID DIFFERENTIAL, BODY FLUID Body Fluid/CSF - Path Review () Body Fluid/CSF - Path Review () [facility] BONE MARROW SMEAR, ASPIRATION, AND STAIN [facility] BONE MARROW SMEAR, ASPIRATION, AND STAIN CANCELED: [...] Normal range of motion. Integumentary: Warm, Dry, [place]. Neurologic: No obvious focal deficit Psychiatric: Cooperative, Appropriate mood & affect. Labs, Imaging, and Other Studies: Echo Results (last 7 days) Procedure Component Value Units Date/Time ECHO COMPLETE (DOPPLER / COLOR) W OR WO CONTRAST [[id number]] Collected: 11/30/24 4465 Order Status: Completed Updated: 11/30/24 1046 Narrative: TRANSTHORACIC ECHOCARDIOGRAPHY REPORT Demographics Patient Name: RIN JONES : 1960 Age: 64 year(s) Corporate ID Number: [id number] Gender Female Highway Safety Engineer: Giovanna Rock Height: [address] Referring [...] 1.35 m/s E/A ratio: 0.97 m/s Volume iqipkbyzj057.99 LV length: 8.51 cm ml Volume hzysbvkh71.96 ml LVOT diameter: 1.79 cm Normal sized [...] Valve TR velocity: 2.51 m/s TR gradient: 25.63606 mmHg Estimated RAP: 3 mmHg RVSP: 28.12 [...] (DOPPLER / COLOR) W OR WO CONTRAST [[id number]] Collected: 11/30/24 0725 Order Status: Completed Updated: 11/30/24 104 Narrative: TRANSTHORACIC ECHOCARDIOGRAPHY REPORT Demographics Patient Name: RIN JONES : 1960 Age: 64 year(s) Corporate ID Number: [id number] Gender Female Highway Safety Engineer: Giovanna Rock Height: 67 inches [facility] Referring Physician: HUEY HURTADO Weight: 225 pounds Interpreting JESSICA RAYMOND MD BMI: 35.24 kg/m^2 Physician: Date of Service: 11/30/2024 Blood Pressure: 118/59 mmHg Room Number: 579 Type of Study: TTE procedure: ECHO COMPLETE (DOPPLER / COLOR) W OR WO CONTRAST. Patient Status: Routine IP [facility]quate [facility] History/Tech Notes: Indication: [...] 1.35 m/s E/A ratio: 0.97 m/s Volume evdeaxmls274.99 LV length: 8.51 cm ml Volume eugeelff70.96 ml LVOT diameter: 1.79 cm Normal sized [...] Valve TR velocity: 2.51 m/s TR gradient: 25.31033 mmHg Estimated RAP: 3 mmHg RVSP: 28.12 [...] imaging. Assessment and Plan: *Paroxysmal Atrial Fib [id number] of 2 also have some wide-complex tachycardia [...] POC-GLUCOSE 140 (H) 70 - 110 mg/dL Bankruptcy Processor [id number] Glucose, Nova Meter Status: Abnormal Collection Time: 12/05/24 7:21 PM Result Value Ref Range POC-GLUCOSE 145 (H) 70 - 110 mg/dL Bankruptcy Processor [id number] CBC - Hemogram (SJ-BKR) Status: Abnormal Collection [...] POC-GLUCOSE 143 (H) 70 - 110 mg/dL Bankruptcy Processor [id number] Glucose, Nova Meter Status: Abnormal Collection Time: 12/06/24 10:36 AM Result Value Ref Range POC-GLUCOSE 150 (H) 70 - 110 mg/dL Bankruptcy Processor [id number] ECG 12 lead Status: None (In process) Collection Time: 12/06/24 1:16 PM Result Value Ref Range VENTRICULAR RATE EKG/MIN 90 BPM ATRIAL RATE (MCT) 90 BPM MI Interval 142 ms QRS-INTERVAL (MSEC) 92 ms QT Interval 378 ms QTC Interval 462 ms P [place] 28 degrees R AXIS (MCT) -4 degrees T Wave [place] 21 degrees [place] Diagnosis Normal sinus rhythm Septal infarct , [...] OT Monitor kidney function No emergent dialysis apartment property manager consulted Discharge Planning: Patient can be [...] Ext: +++ Pedal edema , no cyanosis ADOPTION SERVICES MANAGER: Alert, No focal deficit noted grossly Psy: Cooperative Labs: Results for orders placed or performed during the hospital encounter of 11/30/24 (from the past 24 hours) Glucose, Nova Meter Status: Abnormal Collection Time: 12/05/24 10:23 AM Result Value Ref Range POC-GLUCOSE 141 (H) 70 - 110 mg/dL Bankruptcy Processor [id number] Hemoglobin Status: Abnormal Collection Time: 12/05/24 3:36 PM Result Value Ref Range Hemoglobin 8.1 (L) 11.2 - 15.7 GM/DL Glucose, Nova Meter Status: Abnormal Collection Time: 12/05/24 5:01 PM Result Value Ref Range POC-GLUCOSE 140 (H) 70 - 110 mg/dL Bankruptcy Processor [id number] Glucose, Nova Meter Status: Abnormal Collection Time: 12/05/24 7:21 PM Result Value Ref Range POC-GLUCOSE 145 (H) 70 - 110 mg/dL Bankruptcy Processor [id number] CBC - Hemogram (-BKR) Status: Abnormal Collection [...] POC-GLUCOSE 143 (H) 70 - 110 mg/dL Bankruptcy Processor [id number] XR chest AP portable Narrative: PORTABLE CHEST [...] for GFR - No emergent need of CUTTER INSPECTOR - Monitor H/H and transfuse for Hgb less than 7.0 - Serologic workup pending Discussed with patient * Blanka Malagon MD - 12/06/2024 8:20 AM EDT Images from the original note were not included. PULMONARY AND CRITICAL CARE Consult Note Date of Service: 12/06/2024 HPI: This is a 64 y.o. year old female with past medical history as below. She initially presented to [facility] with swollen abdomen, abdominal discomfort, and bilateral lower extremity pain. Her creatinine was elevated and as a result, she was transferred to [facility] for he patorenal syndrome. Upon [...] BODY REMOVAL; Surgeon: Scott Daley MD; Location: [facility]; Service: Gastroenterology; Laterality: N/A; Allergies: No [...] POC-GLUCOSE 141 (H) 70 - 110 mg/dL Bankruptcy Processor [id number] Hemoglobin Status: Abnormal Collection Time: 12/05/24 3:36 PM Result Value Ref Range Hemoglobin 8.1 (L) 11.2 - 15.7 GM/DL Glucose, Nova Meter Status: Abnormal Collection Time: 12/05/24 5:01 PM Result Value Ref Range POC-GLUCOSE 140 (H) 70 - 110 mg/dL Bankruptcy Processor [id number] Glucose, Nova Meter Status: Abnormal Collection Time: 12/05/24 7:21 PM Result Value Ref Range POC-GLUCOSE 145 (H) 70 - 110 mg/dL Bankruptcy Processor [id number] CBC - Hemogram (-BKR) Status: Abnormal Collection [...] POC-GLUCOSE 143 (H) 70 - 110 mg/dL Bankruptcy Processor [id number] Radiology Radiology Results (last day) Procedure Component Value Units Date/Time XR chest AP portable [[id number]] Resulted: 12/06/24805 Order Status: Sent Updated: 12/06/24805 Microbiology: Microbiology Results (last 7 days) Procedure Component Value Units Date/Time Anaerobic Culture [[id number]] Collected: 11/30/24 1603 Order Status: Completed Specimen: Peritoneal Fluid from Body Fluid Updated: 12/05/24 0634 Result No Anaerobic growth Narrative: Specimen Description: peritoneal fluid Blood Culture [[id number]] Collected: 11/30/24 0340 Order Status: Completed Specimen: Blood from Arm, Left Updated: 12/05/24 0501 Result No growth in 5 days Blood Culture [[id number]] Collected: 11/30/24 0342 Order Status: Completed Specimen: Blood from Arm, Right Updated: 12/05/24 0501 Result No growth in 5 days Body Fluid Culture + Gram Stain [[id number]] Collected: 11/30/24 160 Order Status: Completed Specimen: Peritoneal Fluid from Body Fluid Updated: 12/03/24 0907 Result No growth Gram Stain Result No organisms seen No cells seen Narrative: Specimen Description: peritoneal fluid Body Fluid/CSF - Path Review (SJ) [[id number]] Collected: 11/30/24 1603 Order Status: Completed Specimen: Peritoneal Fluid from Body Fluid Updated: 12/03/24 0654 SENT TO PATHOLOGY FOR REVIEW Yes Scan Result Mesothelial cells. MD German 12/02/2024 AFB Culture And Stain [[id number]] Collected: 11/30/24 160 Order Status: Completed Specimen: Peritoneal Fluid from Body Fluid Updated: 12/01/24 1410 AFB Smear No acid fast bacilli seen Narrative: Specimen Description: peritoneal fluid Glucose, body fluid [[id number]] Collected: 11/30/24 160 Order Status: Completed Specimen: Body Fluid from Peritoneal Fluid Updated: 12/01/24 0710 Glucose, Body Fluid 107 mg/dL BODY FLUID TYPE Peritoneal Narrative: This test has been modified from the manager enrollment's instructions and its performance characteristics were determined by the laboratory. The reference intervals and other method performance specifications are unavailable for this test. It is recommended to interpret body fluid concentrations in comparison with the corresponding serum or plasma concentrations and to integrate test results into the clinical context. Protein, body fluid [[id number]] Collected: 11/30/24 160 Order Status: Completed Specimen: Body Fluid from Peritoneal Fluid Updated: 12/01/24 0710 Protein, Fluid 1.9 g/dL BODY FLUID TYPE Peritoneal Narrative: This test has been modified from the manager enrollment's instructions and its performance characteristics were determined by the laboratory. The reference intervals and other method performance specifications are unavailable for this test. It is recommended to interpret body fluid concentrations in comparison with the corresponding serum or plasma concentrations and to integrate test results into the clinical context. Urine Culture [[id number]] Collected: 11/30/24 1135 Order Status: Completed Specimen: Urine, Clean Catch Updated: 12/01/24 0649 Result Recollect Specimen - 3 or more organisms suggests contamination Body fluid cell count with differential [[id number]] (Abnormal) Collected: 11/30/24 1603 Order Status: Completed [...] fluids are not defined. DIFFERENTIAL, BODY FLUID [[id number]] Collected: 11/30/241602 Order Status: Completed Specimen: Peritoneal Fluid from Body Fluid Updated: 11/30/242048 Neutrophils Fluid 5 % Lymphocytes Fluid 46 % Unidentified Mononuclear Cells BF 49 % Lactate dehydrogenase (LDH), body fluid [[id number]] Collected: 11/30/241602 Order Status: Completed Specimen: Peritoneal Fluid from Body Fluid Updated: 11/30/24 181 LDH, Fluid 71 U/L BODY FLUID TYPE Peritoneal Narrative: This test has been modified from the manager enrollment's instructions and its performance characteristics were determined by the laboratory. The reference intervals and other method performance specifications are unavailable for this test. It is recommended to interpret body fluid concentrations in comparison with the corresponding serum or plasma concentrations and to integrate test results into the clinical context. Fungus Culture W/ROSA MARIA Or Nimisha Ink [[id number]] Collected: 11/30/241602 Order Status: Completed Specimen: Peritoneal Fluid from Body Fluid Updated: 11/30/24 1754 ROSA MARIA Prep No fungal elements seen Narrative: Specimen Description: peritoneal fluid Total Protein, Body Fluid(SENDOUT) [[id number]] Collected: 11/30/24 160 Order Status: Canceled Specimen: Peritoneal Fluid from Body Fluid Updated: 11/30/24 1634 Glucose Body Fluid(SENDOUT) [[id number]] Collected: 11/30/241602 Order Status: Canceled Specimen: Peritoneal Fluid from Body Fluid Updated: 11/30/24 1634 Urine Culture [[id number]] Collected: 11/30/24 1135 Order Status: Canceled Specimen: [...] to continue with albumin/diuretics no indication for CUTTER INSPECTOR Oxygenation improved 3 L nasal cannula, leg [...] personally evaluated the patient and performed a wiob-tl-qfsc diagnostic evaluation on this patient; I have reviewed history, performed physical examination, reviewed laboratory studies. , andreviewed images independent of radiologist. I have actively directed the medical care, formulated assessemnt and plan of care. Patient requires a high complexity of decision making for assessment. 46 minutes pulmonary care clinical time was spent. Voice restaurant culinary manager technology (DepotPoint) is used for dictation of this note and sound-alike words might be erroneously placed despite reviewing the note for accuracy.Errors in dictation may reflect use of voice recognition software and not all errors in restaurant culinary manager may have been detectedprior to signing * [...] Gar Admission Date: 11/30/2024 Primary Care Provider: [facility] Find-a-Doc Chief Complaint/Reason for Consult: No chief complaint on file. History of Present Illness: Mary Gar is a 64 y.o. female, admitted on: 11/30/2024 1:43 AM. presented to [facility] with swollen abdomen, abdominal discomfort and bilateral lower extremity pitting edema. Patient's BUN/creatinine elevated, and patient subsequently transferred to [facility] for hepatorenal syndrome evaluation. Admits to [...] And Stain AFB Culture And Stain [facility] Former Cytology [facility] Former Cytology DIFFERENTIAL, BODY FLUID DIFFERENTIAL, BODY FLUID Body Fluid/CSF - Path Review () Body Fluid/CSF - Path Review () [facility] BONE MARROW SMEAR, ASPIRATION, AND STAIN [facility] BONE MARROW SMEAR, ASPIRATION, AND STAIN CANCELED: [...] BODY REMOVAL; Surgeon: Scott Daley MD; Location: [facility]; Service: Gastroenterology; Laterality: N/A; Allergies: No [...] Normal range of motion. Integumentary: Warm, Dry, [place]. Neurologic: No obvious focal deficit Psychiatric: Cooperative, Appropriate mood & affect. Labs, Imaging, and Other Studies: Echo Results (last 7 days) Procedure Component Value Units Date/Time ECHO COMPLETE (DOPPLER / COLOR) W OR WO CONTRAST [[id number]] Collected: 11/30/24724 Order Status: Completed Updated: 11/30/24 104 Narrative: TRANSTHORACIC ECHOCARDIOGRAPHY REPORT Demographics Patient Name: RIN JONES : 1960 Age: 64 year(s) Corporate ID Number: [id number] Gender Female Highway Safety Engineer: Giovanna Rock Height: 67 inches [facility] Referring Physician: HUEY HURTADO Weight: 225 pounds [...] 1.35 m/s E/A ratio: 0.97 m/s Volume pkipnwuke353.99 LV length: 8.51 cm ml Volume ovrypzii99.96 ml LVOT diameter: 1.79 cm Normal sized [...] Valve TR velocity: 2.51 m/s TR gradient: 25.59640 mmHg Estimated RAP: 3 mmHg RVSP: 28.12 [...] (DOPPLER / COLOR) W OR WO CONTRAST [[id number]] Collected: 11/30/24 0725 Order Status: Completed Updated: 11/30/24 1046 Narrative: TRANSTHORACIC ECHOCARDIOGRAPHY REPORT Demographics Patient Name: RIN JONES : 1960 Age: 64 year(s) Corporate ID Number: [id number] Gender Female Highway Safety Engineer: Giovanna Rock Height: 67 inches [facility] Referring Physician: HUEY HURTADO Weight: 225 pounds Interpreting JESSICA RAYMOND MD BMI: 35.24 kg/m^2 Physician: Date of Service: 11/30/2024 Blood Pressure: 118/59 mmHg Room Number: 579 Type of Study: TTE procedure: ECHO COMPLETE (DOPPLER / COLOR) W OR WO CONTRAST. Patient Status: Routine [facility] History/Tech Notes: Indication: [...] 1.35 m/s E/A ratio: 0.97 m/s Volume igeabrcxs862.99 LV length: 8.51 cm ml Volume sfovuxhb61.96 ml LVOT diameter: 1.79 cm Normal sized [...] Valve TR velocity: 2.51 m/s TR gradient: 25.15874 mmHg Estimated RAP: 3 mmHg RVSP: 28.12 [...] imaging. Assessment and Plan: *Paroxysmal Atrial Fib [id number] of 2 also have some wide-complex tachycardia [...] BODY REMOVAL; Surgeon: Scott Daley MD; Location: [facility]; Service: Gastroenterology; Laterality: N/A; General Visit [...] Mobility Not assessed, patient ambulatory. Outcome Measures -[facility] Basic Mobility Inpatient Short Form How [...] Score Raw score=12 t-Scale score=35.33 Standard error=3.08 [facility] 0-100%=68.66% MDC=4.72 A raw score of >= [...] Ext: +++ Pedal edema , no cyanosis ADOPTION SERVICES MANAGER: Alert, No focal deficit noted grossly Psy: Cooperative Labs: Results for orders placed or performed during the hospital encounter of 11/30/24 (from the past 24 hours) Glucose, Nova Meter Status: Abnormal Collection Time: 12/04/24 10:52 AM Result Value Ref Range POC-GLUCOSE 136 (H) 70 - 110 mg/dL Bankruptcy Processor [id number] Basic Metabolic Panel Status: Abnormal Collection Time: [...] POC-GLUCOSE 137 (H) 70 - 110 mg/dL Bankruptcy Processor [id number] ECG 12 lead Status: None (In process) Collection Time: 12/04/24 8:08 PM Result Value Ref Range SYSTOLIC BLOOD PRESSURE (MCT) 133 mmHg DIASTOLIC BLOOD PRESSURE (MCT) 61 mmHg VENTRICULAR RATE EKG/MIN 85 BPM ATRIAL RATE (MCT) 85 BPM MI Interval 140 ms QRS-INTERVAL (MSEC) 94 ms QT Interval 426 ms QTC Interval 506 ms P [place] 44 degrees R AXIS (MCT) 27 degrees T Wave [place] -27 degrees [place] Diagnosis Normal sinus rhythm Nonspecific T wave abnormality Abnormal ECG When compared with ECG of 04-DEC-2024 03:25, QT has lengthened Glucose, Nova Meter Status: Abnormal Collection Time: 12/04/24 10:20 PM Result Value Ref Range POC-GLUCOSE 147 (H) 70 - 110 mg/dL Bankruptcy Processor [id number] Hemoglobin Status: Abnormal Collection Time: 12/04/24 11:54 [...] POC-GLUCOSE 123 (H) 70 - 110 mg/dL Bankruptcy Processor [id number] XR chest AP portable Narrative: PORTABLE CHEST [...] renal function - No emergent need of CUTTER INSPECTOR - Monitor H/H and transfuse for Hgb [...] history as below. She initially presented to [facility] with swollen abdomen, abdominal discomfort, and bilateral lower extremity pain. Her creatinine was elevated and as a result, she was transferred to [facility] for he patorenal syndrome. Upon [...] BODY REMOVAL; Surgeon: Scott Daley MD; Location: [facility]; Service: Gastroenterology; Laterality: N/A; Allergies: No [...] POC-GLUCOSE 136 (H) 70 - 110 mg/dL Bankruptcy Processor [id number] Basic Metabolic Panel Status: Abnormal Collection Time: [...] POC-GLUCOSE 137 (H) 70 - 110 mg/dL Bankruptcy Processor [id number] ECG 12 lead Status: None (In process) Collection Time: 12/04/24 8:08 PM Result Value Ref Range SYSTOLIC BLOOD PRESSURE (MCT) 133 mmHg DIASTOLIC BLOOD PRESSURE (MCT) 61 mmHg VENTRICULAR RATE EKG/MIN 85 BPM ATRIAL RATE (MCT) 85 BPM MI Interval 140 ms QRS-INTERVAL (MSEC) 94 ms QT Interval 426 ms QTC Interval 506 ms P [place] 44 degrees R AXIS (MCT) 27 degrees T Wave [place] -27 degrees [place] Diagnosis Normal sinus rhythm Nonspecific T wave abnormality Abnormal ECG When compared with ECG of 04-DEC-2024 03:25, QT has lengthened Glucose, Nova Meter Status: Abnormal Collection Time: 12/04/24 10:20 PM Result Value Ref Range POC-GLUCOSE 147 (H) 70 - 110 mg/dL Bankruptcy Processor [id number] Hemoglobin Status: Abnormal Collection Time: 12/04/24 11:54 [...] POC-GLUCOSE 123 (H) 70 - 110 mg/dL Bankruptcy Processor [id number] Radiology Radiology Results (last day) Procedure Component Value Units Date/Time XR chest AP portable [[id number]] Collected: 12/04/24 0923 Order Status: Completed Updated: [...] reviewed, interpreted, and dictated by Dr. Haseeb iGl. Transcribed by Regina Villasenor PA-C. Microbiology: Microbiology Results (last 7 days) Procedure Component Value Units Date/Time Anaerobic Culture [[id number]] Collected: 11/30/24 1603 Order Status: Completed Specimen: Peritoneal Fluid from Body Fluid Updated: 12/05/24 0634 Result No Anaerobic growth Narrative: Specimen Description: peritoneal fluid Blood Culture [[id number]] Collected: 11/30/24 0340 Order Status: Completed Specimen: Blood from Arm, Left Updated: 12/05/24 0501 Result No growth in 5 days Blood Culture [[id number]] Collected: 11/30/24 0342 Order Status: Completed Specimen: Blood from Arm, Right Updated: 12/05/24 0501 Result No growth in 5 days Body Fluid Culture + Gram Stain [[id number]] Collected: 11/30/24 160 Order Status: Completed Specimen: Peritoneal Fluid from Body Fluid Updated: 12/03/24 0907 Result No growth Gram Stain Result No organisms seen No cells seen Narrative: Specimen Description: peritoneal fluid Body Fluid/CSF - Path Review (SJ) [[id number]] Collected: 11/30/24 160 Order Status: Completed Specimen: Peritoneal Fluid from Body Fluid Updated: 12/03/24 0654 SENT TO PATHOLOGY FOR REVIEW Yes Scan Result Mesothelial cells. MD German 12/02/2024 AFB Culture And Stain [[id number]] Collected: 11/30/24 160 Order Status: Completed Specimen: Peritoneal Fluid from Body Fluid Updated: 12/01/24 1410 AFB Smear No acid fast bacilli seen Narrative: Specimen Description: peritoneal fluid Glucose, body fluid [[id number]] Collected: 11/30/24 1603 Order Status: Completed Specimen: Body Fluid from Peritoneal Fluid Updated: 12/01/24 0710 Glucose, Body Fluid 107 mg/dL BODY FLUID TYPE Peritoneal Narrative: This test has been modified from the manager enrollment's instructions and its performance characteristics were determined by the laboratory. The reference intervals and other method performance specifications are unavailable for this test. It is recommended to interpret body fluid concentrations in comparison with the corresponding serum or plasma concentrations and to integrate test results into the clinical context. Protein, body fluid [[id number]] Collected: 11/30/24 160 Order Status: Completed Specimen: Body Fluid from Peritoneal Fluid Updated: 12/01/24 0710 Protein, Fluid 1.9 g/dL BODY FLUID TYPE Peritoneal Narrative: This test has been modified from the manager enrollment's instructions and its performance characteristics were determined by the laboratory. The reference intervals and other method performance specifications are unavailable for this test. It is recommended to interpret body fluid concentrations in comparison with the corresponding serum or plasma concentrations and to integrate test results into the clinical context. Urine Culture [[id number]] Collected: 11/30/24 1135 Order Status: Completed Specimen: Urine, Clean Catch Updated: 12/01/24 0649 Result Recollect Specimen - 3 or more organisms suggests contamination Body fluid cell count with differential [[id number]] (Abnormal) Collected: 11/30/241602 Order Status: Completed Specimen: [...] fluids are not defined. DIFFERENTIAL, BODY FLUID [[id number]] Collected: 11/30/241602 Order Status: Completed Specimen: Peritoneal Fluid from Body Fluid Updated: 11/30/242048 Neutrophils Fluid 5 % Lymphocytes Fluid 46 % Unidentified Mononuclear Cells BF 49 % Lactate dehydrogenase (LDH), body fluid [[id number]] Collected: 11/30/241602 Order Status: Completed Specimen: Peritoneal Fluid from Body Fluid Updated: 11/30/241818 LDH, Fluid 71 U/L BODY FLUID TYPE Peritoneal Narrative: This test has been modified from the manager enrollment's instructions and its performance characteristics were determined by the laboratory. The reference intervals and other method performance specifications are unavailable for this test. It is recommended to interpret body fluid concentrations in comparison with the corresponding serum or plasma concentrations and to integrate test results into the clinical context. Fungus Culture W/ROSA MARIA Or Nimisha Ink [[id number]] Collected: 11/30/241602 Order Status: Completed Specimen: Peritoneal Fluid from Body Fluid Updated: 11/30/24 1754 ROSA MARIA Prep No fungal elements seen Narrative: Specimen Description: peritoneal fluid Total Protein, Body Fluid(SENDOUT) [[id number]] Collected: 11/30/241602 Order Status: Canceled Specimen: Peritoneal Fluid from Body Fluid Updated: 11/30/24 1634 Glucose Body Fluid(SENDOUT) [[id number]] Collected: 11/30/241602 Order Status: Canceled Specimen: Peritoneal Fluid from Body Fluid Updated: 11/30/24 1634 Urine Culture [[id number]] Collected: 11/30/24 1135 Order Status: Canceled Specimen: [...] and lisinopril. Per nephrology there is no CUTTER INSPECTOR indication at this time. Ultrasound renal on [...] multidisciplinary team including nurse practitioner, nurse, RT, aqua ammonia operator, pharmacist, and case management during multidisciplinary round. I Dr.Hazim Jeramy MD, have personally evaluated the patient and performed a wogm-rc-rool diagnostic evaluation on this patient; I have Obtained history, performed physical examination, reviewed laboratory studies. I have reviewed images independent of radiologist. I have actively directed the medical care, formulated diagnosis, and the plan of care. Patient requires a high complexity of decision making for assessment. Voice restaurant culinary manager technology ([employer]otPoint) is used for dictation of this note and sound-alike words might be erroneously placed despite reviewing the note for accuracy. Errors in dictation may reflect use of voice recognition software and not all errors in restaurant culinary manager may have been detected prior to signing. [...] POC-GLUCOSE 136 (H) 70 - 110 mg/dL Bankruptcy Processor [id number] Basic Metabolic Panel Status: Abnormal Collection Time: [...] POC-GLUCOSE 137 (H) 70 - 110 mg/dL Bankruptcy Processor [id number] ECG 12 lead Status: None (In process) Collection Time: 12/04/24 8:08 PM Result Value Ref Range SYSTOLIC BLOOD PRESSURE (MCT) 133 mmHg DIASTOLIC BLOOD PRESSURE (MCT) 61 mmHg VENTRICULAR RATE EKG/MIN 85 BPM ATRIAL RATE (MCT) 85 BPM MI Interval 140 ms QRS-INTERVAL (MSEC) 94 ms QT Interval 426 ms QTC Interval 506 ms P [place] 44 degrees R AXIS (MCT) 27 degrees T Wave [place] -27 degrees [place] Diagnosis Normal sinus rhythm Nonspecific T wave abnormality Abnormal ECG When compared with ECG of 04-DEC-2024 03:25, QT has lengthened Glucose, Nova Meter Status: Abnormal Collection Time: 12/04/24 10:20 PM Result Value Ref Range POC-GLUCOSE 147 (H) 70 - 110 mg/dL Bankruptcy Processor [id number] Hemoglobin Status: Abnormal Collection Time: 12/04/24 11:54 [...] 11/30/2024 1:43 AM. presented to [facility] with swollen abdomen, abdominal discomfort and bilateral lower extremity pitting edema. Patient's BUN/creatinine elevated, and patient subsequently transferred to [facility] for hepatorenal syndrome evaluation. Admits to [...] g 25 g intravenous Q6H [facility] Timothy Bai MD albuterol 2.5 mg /3 [...] And Stain AFB Culture And Stain [facility] Former Cytology [facility] Former Cytology DIFFERENTIAL, BODY FLUID DIFFERENTIAL, BODY FLUID Body Fluid/CSF - Path Review () Body Fluid/CSF - Path Review () [facility] BONE MARROW SMEAR, ASPIRATION, AND STAIN [facility] BONE MARROW SMEAR, ASPIRATION, AND STAIN CANCELED: [...] BODY REMOVAL; Surgeon: Scott Daley MD; Location: [facility]; Service: Gastroenterology; Laterality: N/A; Allergies: No [...] Normal range of motion. Integumentary: Warm, Dry, [place]. Neurologic: No obvious focal deficit Psychiatric: Cooperative, Appropriate mood & affect. Labs, Imaging, and Other Studies: Echo Results (last 7 days) Procedure Component Value Units Date/Time ECHO COMPLETE (DOPPLER / COLOR) W OR WO CONTRAST [[id number]] Collected: 11/30/24 0725 Order Status: Completed Updated: 11/30/24 1046 Narrative: TRANSTHORACIC ECHOCARDIOGRAPHY REPORT Demographics Patient Name: RIN JONES : 1960 Age: 64 year(s) Corporate ID Number: [id number] Gender Female Highway Safety Engineer: Giovanna Rock Height: 67 inches [facility] Referring Physician: HUEY HURTADO Weight: 225 pounds Interpreting JESSICA RAYMOND MD BMI: 35.24 kg/m^2 Physician: Date of Service: 11/30/2024 Blood Pressure: 118/59 mmHg Room Number: 579 Type of Study: TTE procedure: ECHO COMPLETE (DOPPLER / COLOR) W OR WO CONTRAST. Patient Status: Routine IP Study Location: [facility] Quality: Adequate visualization History/Tech Notes: Indication: [...] 1.35 m/s E/A ratio: 0.97 m/s Volume gkzauojbj091.99 LV length: 8.51 cm ml Volume nxytjhdg35.96 ml LVOT diameter: 1.79 cm Normal sized [...] Valve TR velocity: 2.51 m/s TR gradient: 25.43734 mmHg Estimated RAP: 3 mmHg RVSP: 28.12 [...] be as high as 10% in the [place], with risk factors including malabsorption, drug [...] (DOPPLER / COLOR) W OR WO CONTRAST [[id number]] Collected: 11/30/2425 Order Status: Completed Updated: 11/30/24 1046 Narrative: TRANSTHORACIC ECHOCARDIOGRAPHY REPORT Demographics Patient Name: RIN JONES : 1960 Age: 64 year(s) Corporate ID Number: [id number] Gender Female Highway Safety Engineer: Giovanna Rock Height: 67 inches [facility] Referring Physician: HUEY HURTADO Weight: 225 pounds Interpreting JESSICA RAYMOND MD BMI: 35.24 kg/m^2 Physician: Date of Service: 11/30/2024 Blood Pressure: 118/59 mmHg Room Number: 579 Type of Study: TTE procedure: ECHO COMPLETE (DOPPLER / COLOR) W OR WO CONTRAST. Patient Status: Routine IP Study Location: [facility] Quality: Adequate visualization History/Tech Notes: Indication: [...] 1.35 m/s E/A ratio: 0.97 m/s Volume owtvqehas516.99 LV length: 8.51 cm ml Volume jglrtqug96.96 ml LVOT diameter: 1.79 cm Normal sized [...] Valve TR velocity: 2.51 m/s TR gradient: 25.46590 mmHg Estimated RAP: 3 mmHg RVSP: 28.12 [...] imaging. Assessment and Plan: *Paroxysmal Atrial Fib [id number] of 2 also have some wide-complex tachycardia [...] 362 ms QTC Interval 459 ms P [place] 40 degrees R AXIS (MCT) 8 degrees T Wave [place] -8 degrees [place] Diagnosis Normal sinus rhythm Normal ECG No previous ECGs available Confirmed by DEYSI FOSS M.D. ([id number]) on 12/03/2024 5:59:01 PM Glucose, Nova Meter Status: Abnormal Collection Time: 12/03/24 10:45 AM Result Value Ref Range POC-GLUCOSE 156 (H) 70 - 110 mg/dL Bankruptcy Processor [id number] ECG 12 lead Status: None Collection Time: 12/03/24 2:16 PM Result Value Ref Range VENTRICULAR RATE EKG/MIN 136 BPM ATRIAL RATE (MCT) 73 BPM QRS-INTERVAL (MSEC) 88 ms QT Interval 304 ms QTC Interval 457 ms R AXIS (MCT) -11 degrees T Wave [place] -58 degrees [place]is[place] Diagnosis Atrial fibrillation with rapid ventricular response Possible Anterolateral infarct , age undetermined Possible abberancy Confirmed by DEYSI FOSS M.D. ([id number]) on 12/03/2024 5:58:45 PM Glucose, Nova Meter Status: Abnormal Collection Time: 12/03/24 5:19 PM Result Value Ref Range POC-GLUCOSE 146 (H) 70 - 110 mg/dL Bankruptcy Processor [id number] Glucose, Nova Meter Status: Abnormal Collection Time: 12/03/24 9:41 PM Result Value Ref Range POC-GLUCOSE 146 (H) 70 - 110 mg/dL Bankruptcy Processor [id number] Hemoglobin Status: Abnormal Collection Time: 12/04/24 1:04 [...] 380 ms QTC Interval 438 ms P [place] 47 degrees R AXIS (MCT) 44 degrees T Wave [place] -30 degrees [place] Diagnosis Normal sinus rhythm Low voltage QRS [...] POC-GLUCOSE 155 (H) 70 - 110 mg/dL Bankruptcy Processor [id number] Blood gas, arterial Status: Abnormal Collection Time: [...] 8.6 (L) 12.0 - 18.0 g/dL [facility] COLLECTION SITE Right Brachial Arterial Puncture Yes Blood Gas O2 Delivery Device Cannula Oxygen Flow Rate 3 Blood Gas PT Temperature C 37.0 Sne's Test Not Applicable Critical Values Notification Critical Blood gas called to DAYANARA MATIAS . Results acknowledged/read back to [id number] and confirmed on 12/04/2024 07:09 ABG Number [...] history as below. She initially presented to [facility] with swollen abdomen, abdominal discomfort, and bilateral lower extremity pain. Her creatinine was elevated and as a result, she was transferred to [facility] for he patorenal syndrome. Upon [...] BODY REMOVAL; Surgeon: Scott Daley MD; Location: [facility]; Service: Gastroenterology; Laterality: N/A; Allergies: No [...] 362 ms QTC Interval 459 ms P [place] 40 degrees R AXIS (MCT) 8 degrees T Wave [place] -8 degrees Cisne Diagnosis Normal sinus rhythm Normal ECG No previous ECGs available Confirmed by DEYSI FOSS M.D. ([id number]) on 12/03/2024 5:59:01 PM Glucose, Nova Meter Status: Abnormal Collection Time: 12/03/24 10:45 AM Result Value Ref Range POC-GLUCOSE 156 (H) 70 - 110 mg/dL Bankruptcy Processor [id number] ECG 12 lead Status: None Collection Time: 12/03/24 2:16 PM Result Value Ref Range VENTRICULAR RATE EKG/MIN 136 BPM ATRIAL RATE (MCT) 73 BPM QRS-INTERVAL (MSEC) 88 ms QT Interval 304 ms QTC Interval 457 ms R AXIS (MCT) -11 degrees T Wave [place] -58 degrees [place] Diagnosis Atrial fibrillation with rapid ventricular response Possible Anterolateral infarct , age undetermined Possible abberancy Confirmed by DEYSI FOSS M.D. ([id number]) on 12/03/2024 5:58:45 PM Glucose, Nova Meter Status: Abnormal Collection Time: 12/03/24 5:19 PM Result Value Ref Range POC-GLUCOSE 146 (H) 70 - 110 mg/dL Bankruptcy Processor [id number] Glucose, Nova Meter Status: Abnormal Collection Time: 12/03/24 9:41 PM Result Value Ref Range POC-GLUCOSE 146 (H) 70 - 110 mg/dL Bankruptcy Processor [id number] Hemoglobin Status: Abnormal Collection Time: 12/04/24 1:04 [...] 380 ms QTC Interval 438 ms P [place] 47 degrees R AXIS (MCT) 44 degrees T Wave [place] -30 degrees [place]is[place] Diagnosis Normal sinus rhythm Low voltage QRS [...] POC-GLUCOSE 155 (H) 70 - 110 mg/dL Bankruptcy Processor [id number] Blood gas, arterial Status: Abnormal Collection Time: [...] 8.6 (L) 12.0 - 18.0 g/dL [facility] COLLECTION SITE Right Brachial Arterial Puncture Yes Blood Gas O2 Delivery Device Cannula Oxygen Flow Rate 3 Blood Gas PT Temperature C 37.0 Sen's Test Not Applicable Critical Values Notification Critical Blood gas called to DAYANARA MATIAS . Results acknowledged/read back to [id number] and confirmed on 12/04/2024 07:09 ABG Number of Draw Attempts 1 FIO2 Blood Gas Temperature Corrected Results No No Radiology Radiology Results (last day) Procedure Component Value Units Date/Time XR chest AP portable [[id number]] Resulted: 12/04/24749 Order Status: Sent Updated: 12/04/24750 XR chest AP portable [[id number]] Collected: 12/03/241805 Order Status: Completed Updated: 12/03/241807 [...] Procedure Component Value Units Date/Time Anaerobic Culture [[id number]] Collected: 11/30/24 1603 Order Status: Completed Specimen: Peritoneal Fluid from Body Fluid Updated: 12/04/24 0754 Result No Anaerobic growth Narrative: Specimen Description: peritoneal fluid Blood Culture [[id number]] Collected: 11/30/24 0340 Order Status: Completed Specimen: Blood from Arm, Left Updated: 12/04/24 0501 Result No growth in 4 days Blood Culture [[id number]] Collected: 11/30/24 0342 Order Status: Completed Specimen: Blood from Arm, Right Updated: 12/04/24 0501 Result No growth in 4 days Body Fluid Culture + Gram Stain [[id number]] Collected: 11/30/24 160 Order Status: Completed Specimen: Peritoneal Fluid from Body Fluid Updated: 12/03/24 0907 Result No growth Gram Stain Result No organisms seen No cells seen Narrative: Specimen Description: peritoneal fluid Body Fluid/CSF - Path Review () [[id number]] Collected: 11/30/24 160 Order Status: Completed Specimen: Peritoneal Fluid from Body Fluid Updated: 12/03/24 0654 SENT TO PATHOLOGY FOR REVIEW Yes Scan Result Mesothelial cells. MD German 12/02/2024 AFB Culture And Stain [[id number]] Collected: 11/30/24 160 Order Status: Completed Specimen: Peritoneal Fluid from Body Fluid Updated: 12/01/24 1410 AFB Smear No acid fast bacilli seen Narrative: Specimen Description: peritoneal fluid Glucose, body fluid [[id number]] Collected: 11/30/24 160 Order Status: Completed Specimen: Body Fluid from Peritoneal Fluid Updated: 12/01/24 0710 Glucose, Body Fluid 107 mg/dL BODY FLUID TYPE Peritoneal Narrative: This test has been modified from the manager enrollment's instructions and its performance characteristics were determined by the laboratory. The reference intervals and other method performance specifications are unavailable for this test. It is recommended to interpret body fluid concentrations in comparison with the corresponding serum or plasma concentrations and to integrate test results into the clinical context. Protein, body fluid [[id number]] Collected: 11/30/24 160 Order Status: Completed Specimen: Body Fluid from Peritoneal Fluid Updated: 12/01/24 0710 Protein, Fluid 1.9 g/dL BODY FLUID TYPE Peritoneal Narrative: This test has been modified from the manager enrollment's instructions and its performance characteristics were determined by the laboratory. The reference intervals and other method performance specifications are unavailable for this test. It is recommended to interpret body fluid concentrations in comparison with the corresponding serum or plasma concentrations and to integrate test results into the clinical context. Urine Culture [[id number]] Collected: 11/30/24 1135 Order Status: Completed Specimen: Urine, Clean Catch Updated: 12/01/24 0649 Result Recollect Specimen - 3 or more organisms suggests contamination Body fluid cell count with differential [[id number]] (Abnormal) Collected: 11/30/24 1603 Order Status: Completed [...] fluids are not defined. DIFFERENTIAL, BODY FLUID [[id number]] Collected: 11/30/241602 Order Status: Completed Specimen: Peritoneal Fluid from Body Fluid Updated: 11/30/24 2049 Neutrophils Fluid 5 % Lymphocytes Fluid 46 % Unidentified Mononuclear Cells BF 49 % Lactate dehydrogenase (LDH), body fluid [[id number]] Collected: 11/30/241602 Order Status: Completed Specimen: Peritoneal Fluid from Body Fluid Updated: 11/30/24 1819 LDH, Fluid 71 U/L BODY FLUID TYPE Peritoneal Narrative: This test has been modified from the manager enrollment's instructions and its performance characteristics were determined by the laboratory. The reference intervals and other method performance specifications are unavailable for this test. It is recommended to interpret body fluid concentrations in comparison with the corresponding serum or plasma concentrations and to integrate test results into the clinical context. Fungus Culture W/ROSA MARIA Or Nimisha Ink [[id number]] Collected: 11/30/241602 Order Status: Completed Specimen: Peritoneal Fluid from Body Fluid Updated: 11/30/24 1754 ROSA MARIA Prep No fungal elements seen Narrative: Specimen Description: peritoneal fluid Total Protein, Body Fluid(SENDOUT) [[id number]] Collected: 11/30/24 160 Order Status: Canceled Specimen: Peritoneal Fluid from Body Fluid Updated: 11/30/24 1634 Glucose Body Fluid(SENDOUT) [[id number]] Collected: 11/30/24 160 Order Status: Canceled Specimen: Peritoneal Fluid from Body Fluid Updated: 11/30/24 1634 Urine Culture [[id number]] Collected: 11/30/24 1135 Order Status: Canceled Specimen: [...] and lisinopril. Per nephrology there is no CUTTER INSPECTOR indication at this time. Ultrasound renal on [...] multidisciplinary team including nurse practitioner, nurse, RT, aqua ammonia operator, pharmacist, and case management during multidisciplinary round. I Dr.Hazim Jeramy MD, have personally evaluated the patient and performed a [id number] diagnostic evaluation on this patient; I have Obtained history, performed physical examination, reviewed laboratory studies. I have reviewed images independent of radiologist. I have actively directed the medical care, formulated diagnosis, and the plan of care. Patient requires a high complexity of decision making for assessment. Voice restaurant culinary manager technology ([employer]) is used for dictation of this note and sound-alike words might be erroneously placed despite reviewing the note for accuracy. Errors in dictation may reflect use of voice recognition software and not all errors in restaurant culinary manager may have been detected prior to signing. [...] Ext: +++ Pedal edema , no cyanosis ADOPTION SERVICES MANAGER: Alert, No focal deficit noted grossly Psy: [...] 362 ms QTC Interval 459 ms P [place] 40 degrees R AXIS (MCT) 8 degrees T Wave [place] -8 degrees [place] Diagnosis Normal sinus rhythm Normal ECG No previous ECGs available Confirmed by DEYSI FOSS M.D. ([id number]) on 12/03/2024 5:59:01 PM Glucose, Nova Meter Status: Abnormal Collection Time: 12/03/24 10:45 AM Result Value Ref Range POC-GLUCOSE 156 (H) 70 - 110 mg/dL Bankruptcy Processor [id number] ECG 12 lead Status: None Collection Time: 12/03/24 2:16 PM Result Value Ref Range VENTRICULAR RATE EKG/MIN 136 BPM ATRIAL RATE (MCT) 73 BPM QRS-INTERVAL (MSEC) 88 ms QT Interval 304 ms QTC Interval 457 ms R AXIS (MCT) -11 degrees T Wave [place] -58 degrees Cisne Diagnosis Atrial fibrillation with rapid ventricular response Possible Anterolateral infarct , age undetermined Possible abberancy Confirmed by DEYSI FOSS M.D. ([id number]) on 12/03/2024 5:58:45 PM Glucose, Nova Meter Status: Abnormal Collection Time: 12/03/24 5:19 PM Result Value Ref Range POC-GLUCOSE 146 (H) 70 - 110 mg/dL Bankruptcy Processor [id number] Glucose, Nova Meter Status: Abnormal Collection Time: 12/03/24 9:41 PM Result Value Ref Range POC-GLUCOSE 146 (H) 70 - 110 mg/dL Bankruptcy Processor [id number] Hemoglobin Status: Abnormal Collection Time: 12/04/24 1:04 [...] 380 ms QTC Interval 438 ms P [place] 47 degrees R AXIS (MCT) 44 degrees T Wave [place] -30 degrees Cisne Diagnosis Normal sinus rhythm Low voltage QRS [...] POC-GLUCOSE 155 (H) 70 - 110 mg/dL Bankruptcy Processor [id number] Blood gas, arterial Status: Abnormal Collection Time: [...] 8.6 (L) 12.0 - 18.0 g/dL [facility] COLLECTION SITE Right Brachial Arterial Puncture Yes Blood Gas O2 Delivery Device Cannula Oxygen Flow Rate 3 Blood Gas PT Temperature C 37.0 Sen's Test Not Applicable Critical Values Notification Critical Blood gas called to DAYANARA MATIAS . Results acknowledged/read back to [id number] and confirmed on 12/04/2024 07:09 ABG Number [...] renal function - No emergent need of CUTTER INSPECTOR - Monitor H/H and transfuse for Hgb less than 7.0 - Serologic workup pending Discussed with patient * Laura Cervantes MD - 12/03/2024 4:10 PM EDT [...] Ext: +++ Pedal edema , no cyanosis ADOPTION SERVICES MANAGER: Alert, No focal deficit noted grossly Psy: Cooperative Labs: Results for orders placed or performed during the hospital encounter of 11/30/24 (from the past 24 hours) Glucose, Nova Meter Status: Abnormal Collection Time: 12/02/24 5:18 PM Result Value Ref Range POC-GLUCOSE 128 (H) 70 - 110 mg/dL Bankruptcy Processor [id number] Hemoglobin Status: Abnormal Collection Time: 12/02/24 6:03 PM Result Value Ref Range Hemoglobin 9.1 (L) 11.2 - 15.7 GM/DL Glucose, Nova Meter Status: Abnormal Collection Time: 12/02/24 8:06 PM Result Value Ref Range POC-GLUCOSE 144 (H) 70 - 110 mg/dL Bankruptcy Processor [id number] Hemoglobin Status: Abnormal Collection Time: 12/02/24 11:06 PM Result Value Ref Range Hemoglobin 8.9 (L) 11.2 - 15.7 GM/DL Glucose, Nova Meter Status: Abnormal Collection Time: 12/03/24 1:10 AM Result Value Ref Range POC-GLUCOSE 164 (H) 70 - 110 mg/dL Bankruptcy Processor [id number] Glucose, Nova Meter Status: Abnormal Collection Time: 12/03/24 1:12 AM Result Value Ref Range POC-GLUCOSE 168 (H) 70 - 110 mg/dL Bankruptcy Processor [id number] Glucose, Nova Meter Status: Abnormal Collection Time: 12/03/24 5:13 AM Result Value Ref Range POC-GLUCOSE 142 (H) 70 - 110 mg/dL Bankruptcy Processor [id number] Magnesium Status: Normal Collection Time: 12/03/24 7:39 [...] 362 ms QTC Interval 459 ms P [place] 40 degrees R AXIS (MCT) 8 degrees T Wave [place] -8 degrees Cisne Diagnosis Normal sinus rhythm Normal ECG No previous ECGs available Glucose, Nova Meter Status: Abnormal Collection Time: 12/03/24 10:45 AM Result Value Ref Range POC-GLUCOSE 156 (H) 70 - 110 mg/dL Bankruptcy Processor [id number] ECG 12 lead Status: None (In process) Collection Time: 12/03/24 2:16 PM Result Value Ref Range VENTRICULAR RATE EKG/MIN 136 BPM ATRIAL RATE (MCT) 73 BPM QRS-INTERVAL (MSEC) 88 ms QT Interval 304 ms QTC Interval 457 ms R AXIS (MCT) -11 degrees T Wave [place] -58 degrees [place]ne Diagnosis Atrial fibrillation with rapid ventricular response Possible Anterolateral infarct , age undetermined Abnormal ECG When compared with ECG of 03-DEC-2024 10:39, Atrial fibrillation has replaced Sinus rhythm CT bone marrow biopsy Narrative: CT GUIDED BONE MARROW ASPIRATION AND CORE BIOPSY. HISTORY: Pancytopenia. ATTENDING RADIOLOGIST: Dr. Haseeb Gil. PHYSICIAN INTERNET SECURITY SPECIALIST: Sandra Ramsey PA-C PROCEDURE: After informed consent [...] 0513 12/03/24 0112 12/03/24 0110 12/02/24 2306 12/02/24 2006 12/02/24 1803 12/02/24 1251 12/02/24 0740 12/02/24 0504 [...] renal function - No emergent need of CUTTER INSPECTOR - Monitor H/H and transfuse for Hgb less than 7.0 * Brandan Kerr, PT - 12/03/2024 2:16 PM EDT Images from the original note were not included. Inpatient Physical Therapy Attempt to Treat Patient Name: Mary Gar Birthday: 1960 Date of Attempt: 12/03/2024 Time: [id number]. Gathered subjective history from patient and assessed [...] Gar Admit Date: 11/30/2024 LOS: 3 days Location:[facility] PCP on file: [facility] Principal Problem: Anasarca ASSESSMENT & PLAN [...] Dr. Law Cote on December 07 in [place], [place]. -No evidence of SBP -Continue Lactulose/Xifaxan [...] POC-GLUCOSE 112 (H) 70 - 110 mg/dL Bankruptcy Processor [id number] Glucose, Nova Meter Status: Abnormal Collection Time: 12/02/24 5:18 PM Result Value Ref Range POC-GLUCOSE 128 (H) 70 - 110 mg/dL Bankruptcy Processor [id number] Hemoglobin Status: Abnormal Collection Time: 12/02/24 6:03 PM Result Value Ref Range Hemoglobin 9.1 (L) 11.2 - 15.7 GM/DL Glucose, Nova Meter Status: Abnormal Collection Time: 12/02/24 8:06 PM Result Value Ref Range POC-GLUCOSE 144 (H) 70 - 110 mg/dL Bankruptcy Processor [id number] Hemoglobin Status: Abnormal Collection Time: 12/02/24 11:06 PM Result Value Ref Range Hemoglobin 8.9 (L) 11.2 - 15.7 GM/DL Glucose, Nova Meter Status: Abnormal Collection Time: 12/03/24 1:10 AM Result Value Ref Range POC-GLUCOSE 164 (H) 70 - 110 mg/dL Bankruptcy Processor [id number] Glucose, Nova Meter Status: Abnormal Collection Time: 12/03/24 1:12 AM Result Value Ref Range POC-GLUCOSE 168 (H) 70 - 110 mg/dL Bankruptcy Processor [id number] Glucose, Nova Meter Status: Abnormal Collection Time: 12/03/24 5:13 AM Result Value Ref Range POC-GLUCOSE 142 (H) 70 - 110 mg/dL Bankruptcy Processor [id number] Magnesium Status: Normal Collection Time: 12/03/24 7:39 [...] Value Units Date/Time CT bone marrow biopsy [[id number]] Collected: 12/02/24 1524 Order Status: Completed Updated: 12/02/24 1556 Narrative: CT GUIDED BONE MARROW ASPIRATION AND CORE BIOPSY. HISTORY: Pancytopenia. ATTENDING RADIOLOGIST: Dr. Haseeb Gil. PHYSICIAN INTERNET SECURITY SPECIALIST: Sandra Ramsey PA-C PROCEDURE: After informed consent [...] Transcribed by Sandra Ramsey PA-C. Ultrasound liver [[id number]] Collected: 11/30/24 1643 Order Status: Completed Updated: [...] and dictated by SABINE Yang. US paracentesis [[id number]] Collected: 11/30/24 1637 Order Status: Completed Updated: 11/30/241654 Narrative: ULTRASOUND-GUIDED PARACENTESIS HISTORY: Ascites ATTENDING PHYSICIAN: Dr. Haseeb Gil PHYSICIAN INTERNET SECURITY SPECIALIST: Gabriel Velasco PA-C FINDINGS: After informed consent [...] by Gabriel Velasco PA-C. Ultrasound renal limited [[id number]] Collected: 11/30/24 1646 Order Status: Completed Updated: [...] Ronnell Tom MD XR chest AP portable [[id number]] Collected: 11/30/24 1215 Order Status: Completed Updated: [...] AM Result Value Ref Range Issue Date/Time [id number] Product Identification Red Blood Cells Product Code [id number] Status Information Transfused Unit Number [id number] Blood Type 5100 Cross Match Results Compatible Glucose, Nova Meter Status: Abnormal Collection Time: 12/02/24 12:51 PM Result Value Ref Range POC-GLUCOSE 112 (H) 70 - 110 mg/dL Bankruptcy Processor [id number] Glucose, Nova Meter Status: Abnormal Collection Time: 12/02/24 5:18 PM Result Value Ref Range POC-GLUCOSE 128 (H) 70 - 110 mg/dL Bankruptcy Processor [id number] Hemoglobin Status: Abnormal Collection Time: 12/02/24 6:03 PM Result Value Ref Range Hemoglobin 9.1 (L) 11.2 - 15.7 GM/DL Glucose, Nova Meter Status: Abnormal Collection Time: 12/02/24 8:06 PM Result Value Ref Range POC-GLUCOSE 144 (H) 70 - 110 mg/dL Bankruptcy Processor [id number] Hemoglobin Status: Abnormal Collection Time: 12/02/24 11:06 PM Result Value Ref Range Hemoglobin 8.9 (L) 11.2 - 15.7 GM/DL Glucose, Nova Meter Status: Abnormal Collection Time: 12/03/24 1:10 AM Result Value Ref Range POC-GLUCOSE 164 (H) 70 - 110 mg/dL Bankruptcy Processor [id number] Glucose, Nova Meter Status: Abnormal Collection Time: 12/03/24 1:12 AM Result Value Ref Range POC-GLUCOSE 168 (H) 70 - 110 mg/dL Bankruptcy Processor [id number] Glucose, Nova Meter Status: Abnormal Collection Time: 12/03/24 5:13 AM Result Value Ref Range POC-GLUCOSE 142 (H) 70 - 110 mg/dL Bankruptcy Processor [id number] Magnesium Status: Normal Collection Time: 12/03/24 7:39 [...] Pancytopenia. ATTENDING RADIOLOGIST: Dr. Haseeb Gil. PHYSICIAN INTERNET SECURITY SPECIALIST: Sandra Ramsey PA-C PROCEDURE: After informed consent [...] BODY REMOVAL; Surgeon: Scott Daley MD; Location: [facility]; Service: Gastroenterology; Laterality: N/A; General Visit [...] socks seated in chair. Pt participated with JENNIFER and KRYSTEN MCARTHUR. She tolerated session well this date. [...] in Afib w/RVR and c/o SOB. EP REVERSING MILL ROLLER notified.New orders taken. IV Amio 150mg bolus [...] BODY REMOVAL; Surgeon: Scott Daley MD; Location: [facility]; Service: Gastroenterology; Laterality: N/A; Allergies: Patient [...] K 4.2 12/02/2024 033 CL 118 (H) 12/02/2024 033 CO2 19 (L) 12/02/2024337 BUN 55.1 (H) 12/02/2024 033 CREATININE 3.55 (H) 12/02/2024 033 Component Value Date/Time CALCIUM 7.9 (L) 12/02/2024 033 ALKPHOS 49 12/02/2024337 AST 32 12/02/2024337 ALT 8 12/02/2024337 BILITOT 0.9 12/02/2024 0338 Radiology Results (last 7 days) Procedure Component Value Units Date/Time CT bone marrow biopsy [[id number]] Collected: 12/02/24 1524 Order Status: Completed Updated: 12/02/241525 Narrative: CT GUIDED BONE MARROW ASPIRATION AND CORE BIOPSY. HISTORY: Pancytopenia. ATTENDING RADIOLOGIST: Dr. Haseeb Gil. PHYSICIAN INTERNET SECURITY SPECIALIST: Sandra Ramsey PA-C PROCEDURE: After informed consent [...] by Sandra Ramsey PA-C. Ultrasound renal limited [[id number]] Collected: 11/30/241645 Order Status: Completed Updated: 11/30/241648 [...] dictated by Ronnell Tom MD Ultrasound liver [[id number]] Collected: 11/30/24 164 Order Status: Completed Updated: [...] and dictated by SABINE Yang. US paracentesis [[id number]] Collected: 11/30/24 1637 Order Status: Completed Updated: 11/30/241654 Narrative: ULTRASOUND-GUIDED PARACENTESIS HISTORY: Ascites ATTENDING PHYSICIAN: Dr. Haseeb Gil PHYSICIAN INTERNET SECURITY SPECIALIST: Gabriel Velasco PA-C FINDINGS: After informed consent [...] Gabriel Velasco PA-C. XR chest AP portable [[id number]] Collected: 11/30/24 1215 Order Status: Completed Updated: [...] by Dr. Jose C Calhoun. Transcribed by Mairelos Sotelo PA-C. US renal complete [[id number]] Order Status: Canceled Assessment Pancytopenia. She had [...] Gar Admit Date: 11/30/2024 LOS: 2 days Location:[id number] PCP on file: [facility] Find-a-Doc Principal Problem: Anasarca ASSESSMENT & PLAN [...] Range POC-GLUCOSE 100 70 - 110 mg/dL Bankruptcy Processor [id number] Hemoglobin Status: Abnormal Collection Time: 12/01/24 3:33 PM Result Value Ref Range Hemoglobin 8.0 (L) 11.2 - 15.7 GM/DL Glucose, Nova Meter Status: Abnormal Collection Time: 12/01/24 4:25 PM Result Value Ref Range POC-GLUCOSE 115 (H) 70 - 110 mg/dL Bankruptcy Processor [id number] Glucose, Nova Meter Status: Abnormal Collection Time: 12/01/24 7:34 PM Result Value Ref Range POC-GLUCOSE 128 (H) 70 - 110 mg/dL Bankruptcy Processor [id number] Hemoglobin Status: Abnormal Collection Time: 12/02/24 12:04 [...] POC-GLUCOSE 115 (H) 70 - 110 mg/dL Bankruptcy Processor [id number] Hemoglobin Status: Abnormal Collection Time: 12/02/24 7:40 [...] Product Identification Red Blood Cells Product Code [id number] Status Information Ready for issue Unit Number [id number] Blood Type 5100 Cross Match Results Compatible Radiology Results (last 3 days) Procedure Component Value Units Date/Time Ultrasound liver [[id number]] Collected: 11/30/24 1643 Order Status: Completed Updated: 11/30/24 1655 Narrative: CLINICAL INDICATION: Abdominal pain. Assess HCC [...] and dictated by SABINE Yang. US paracentesis [[id number]] Collected: 11/30/24 1637 Order Status: Completed Updated: 11/30/241654 Narrative: ULTRASOUND-GUIDED PARACENTESIS HISTORY: Ascites ATTENDING PHYSICIAN: Dr. Haseeb Gil PHYSICIAN INTERNET SECURITY SPECIALIST: Gabriel Velasco PA-C FINDINGS: After informed consent [...] by Gabriel Velasco PA-C. Ultrasound renal limited [[id number]] Collected: 11/30/24 1646 Order Status: Completed Updated: [...] Ronnell Tom MD XR chest AP portable [[id number]] Collected: 11/30/24 1215 Order Status: Completed Updated: [...] Ext: +++ Pedal edema , no cyanosis ADOPTION SERVICES MANAGER: Alert, No focal deficit noted grossly Psy: Cooperative Labs: Results for orders placed or performed during the hospital encounter of 11/30/24 (from the past 24 hours) Glucose, Nova Meter Status: None Collection Time: 12/01/24 10:32 AM Result Value Ref Range POC-GLUCOSE 100 70 - 110 mg/dL Bankruptcy Processor [id number] Hemoglobin Status: Abnormal Collection Time: 12/01/24 3:33 PM Result Value Ref Range Hemoglobin 8.0 (L) 11.2 - 15.7 GM/DL Glucose, Nova Meter Status: Abnormal Collection Time: 12/01/24 4:25 PM Result Value Ref Range POC-GLUCOSE 115 (H) 70 - 110 mg/dL Bankruptcy Processor [id number] Glucose, Nova Meter Status: Abnormal Collection Time: 12/01/24 7:34 PM Result Value Ref Range POC-GLUCOSE 128 (H) 70 - 110 mg/dL Bankruptcy Processor [id number] Hemoglobin Status: Abnormal Collection Time: 12/02/24 12:04 [...] POC-GLUCOSE 115 (H) 70 - 110 mg/dL Bankruptcy Processor [id number] Hemoglobin Status: Abnormal Collection Time: 12/02/24 7:40 [...] Ascites ATTENDING PHYSICIAN: Dr. Haseeb Gil PHYSICIAN INTERNET SECURITY SPECIALIST: Gabriel Velasco PA-C FINDINGS: After informed consent [...] 1960 Age: 64 year(s) Corporate ID Number: [id number] Gender Female Highway Safety Engineer: Giovanna Rock Height: 67 inches [facility] Referring Physician: HUEY HURTADO Weight: 225 pounds Interpreting JESSICA RAYMOND MD BMI: 35.24 kg/m^2 Physician: Date of Service: 11/30/2024 Blood Pressure: 118/59 mmHg Room Number: 579 Type of Study: TTE procedure: ECHO COMPLETE (DOPPLER / COLOR) W OR WO CONTRAST. Patient Status: Routine IP Study Location: [facility] Quality: Adequate visualization History/Tech Notes: Indication: [...] 1.35 m/s E/A ratio: 0.97 m/s Volume aaifjwmgk295.99 LV length: 8.51 cm ml Volume aaygnrvx66.96 ml LVOT diameter: 1.79 cm Normal sized [...] Valve TR velocity: 2.51 m/s TR gradient: 25.06521 mmHg Estimated RAP: 3 mmHg RVSP: 28.12 [...] subcostal imaging. Recent Labs Lab(s) Units 12/02/24 0744 12/02/24 0504 12/02/24 0338 12/02/24 0004 12/01/24 [...] renal function - No emergent need of CUTTER INSPECTOR - Monitor H/H and transfuse for Hgb [...] Range POC-GLUCOSE 100 70 - 110 mg/dL Bankruptcy Processor [id number] Hemoglobin Status: Abnormal Collection Time: 12/01/24 3:33 PM Result Value Ref Range Hemoglobin 8.0 (L) 11.2 - 15.7 GM/DL Glucose, Nova Meter Status: Abnormal Collection Time: 12/01/24 4:25 PM Result Value Ref Range POC-GLUCOSE 115 (H) 70 - 110 mg/dL Bankruptcy Processor [id number] Glucose, Nova Meter Status: Abnormal Collection Time: 12/01/24 7:34 PM Result Value Ref Range POC-GLUCOSE 128 (H) 70 - 110 mg/dL Bankruptcy Processor [id number] Hemoglobin Status: Abnormal Collection Time: 12/02/24 12:04 [...] POC-GLUCOSE 115 (H) 70 - 110 mg/dL Bankruptcy Processor [id number] Hemoglobin Status: Abnormal Collection Time: 12/02/24 7:40 [...] Ascites ATTENDING PHYSICIAN: Dr. Haseeb Gil PHYSICIAN INTERNET SECURITY SPECIALIST: Gabriel Velasco PA-C FINDINGS: After informed consent [...] 1960 Age: 64 year(s) Corporate ID Number: [id number] Gender Female Highway Safety Engineer: Giovanna Rock Height: 67 inches [facility] Referring Physician: HUEY HURTADO Weight: 225 pounds [...] 1.35 m/s E/A ratio: 0.97 m/s Volume cqaeujrba388.99 LV length: 8.51 cm ml Volume txgafbse13.96 ml LVOT diameter: 1.79 cm Normal sized [...] Valve TR velocity: 2.51 m/s TR gradient: 25.76150 mmHg Estimated RAP: 3 mmHg RVSP: 28.12 [...] BODY REMOVAL; Surgeon: Scott Daley MD; Location: [facility]; Service: Gastroenterology; Laterality: N/A; Allergies: Patient [...] Component Value Units Date/Time Ultrasound renal limited [[id number]] Collected: 11/30/241645 Order Status: Completed Updated: 11/30/241648 [...] dictated by Ronnell Tom MD Ultrasound liver [[id number]] Collected: 11/30/24 1643 Order Status: Completed Updated: [...] and dictated by SABINE Yang. US paracentesis [[id number]] Collected: 11/30/24 1637 Order Status: Completed Updated: 11/30/241654 Narrative: ULTRASOUND-GUIDED PARACENTESIS HISTORY: Ascites ATTENDING PHYSICIAN: Dr. Haseeb Gil PHYSICIAN INTERNET SECURITY SPECIALIST: Gabriel Velasco PA-C FINDINGS: After informed consent [...] Gabriel Velasco PA-C. XR chest AP portable [[id number]] Collected: 11/30/24 1215 Order Status: Completed Updated: [...] by Marielos Sotelo PA-C. US renal complete [[id number]] Order Status: Canceled Assessment Pancytopenia. White blood [...] Range POC-GLUCOSE 102 70 - 110 mg/dL Bankruptcy Processor [id number] Urinalysis, Reflex Microscopic and Culture If Indicated Status: Abnormal Collection Time: 11/30/24 11:35 AM Result Value Ref Range Color, UA Light Yellow Clarity, UA Turbid (A) Clear Specific [place], UA 1.011 1.005 - 1.030 pH, UA [...] Range POC-GLUCOSE 107 70 - 110 mg/dL Bankruptcy Processor [id number] Glucose, Nova Meter Status: None Collection Time: 11/30/24 7:38 PM Result Value Ref Range POC-GLUCOSE 106 70 - 110 mg/dL Bankruptcy Processor [id number] Magnesium Status: Abnormal Collection Time: 12/01/24 4:05 [...] AM Result Value Ref Range Issue Date/Time [id number] Product Identification Red Blood Cells Product Code [id number] Status Information Transfused Unit Number [id number] Blood Type 5100 Cross Match Results Compatible Glucose, Nova Meter Status: None Collection Time: 12/01/24 5:37 AM Result Value Ref Range POC-GLUCOSE 107 70 - 110 mg/dL Bankruptcy Processor [id number] Type and Screen Status: None (Preliminary result) Collection Time: 12/01/24 7:08 AM Result Value Ref Range ABO/Rh O Positive Antibody Screen Negative Glucose, Nova Meter Status: None Collection Time: 12/01/24 8:12 AM Result Value Ref Range POC-GLUCOSE 103 70 - 110 mg/dL Bankruptcy Processor [id number] Ultrasound liver Narrative: CLINICAL INDICATION: Abdominal pain. [...] PARACENTESIS HISTORY: Ascites ATTENDING PHYSICIAN: Dr. Haseeb iGl PHYSICIAN INTERNET SECURITY SPECIALIST: Gabriel Velasco PA-C FINDINGS: After informed consent [...] 1960 Age: 64 year(s) Corporate ID Number: [id number] Gender Female Highway Safety Engineer: Giovanna Rock Height: 67 inches [facility] Referring Physician: HUEY HURTADO Weight: 225 pounds Interpreting JESSICA RAYMOND MD BMI: 35.24 kg/m^2 Physician: Date of Service: 11/30/2024 Blood Pressure: 118/59 mmHg Room Number: 579 Type of Study: TTE procedure: ECHO COMPLETE (DOPPLER / COLOR) W OR WO CONTRAST. Patient Status: Routine IP [facility]quate [facility] History/Tech Notes: Indication: [...] 1.35 m/s E/A ratio: 0.97 m/s Volume cgldzctqo983.99 LV length: 8.51 cm ml Volume qgivbjuf70.96 ml LVOT diameter: 1.79 cm Normal sized [...] Valve TR velocity: 2.51 m/s TR gradient: 25.30162 mmHg Estimated RAP: 3 mmHg RVSP: 28.12 [...] Ext: +++ Pedal edema , no cyanosis ADOPTION SERVICES MANAGER: Alert, No focal deficit noted grossly Psy: Cooperative Labs: Results for orders placed or performed during the hospital encounter of 11/30/24 (from the past 24 hours) Glucose, Nova Meter Status: None Collection Time: 11/30/24 10:46 AM Result Value Ref Range POC-GLUCOSE 102 70 - 110 mg/dL Bankruptcy Processor [id number] Urinalysis, Reflex Microscopic and Culture If Indicated Status: Abnormal Collection Time: 11/30/24 11:35 AM Result Value Ref Range Color, UA Light Yellow Clarity, UA Turbid (A) Clear Specific [place], UA 1.011 1.005 - 1.030 pH, UA [...] Range POC-GLUCOSE 107 70 - 110 mg/dL Bankruptcy Processor [id number] Glucose, Nova Meter Status: None Collection Time: 11/30/24 7:38 PM Result Value Ref Range POC-GLUCOSE 106 70 - 110 mg/dL Bankruptcy Processor [id number] Magnesium Status: Abnormal Collection Time: 12/01/24 4:05 [...] AM Result Value Ref Range Issue Date/Time [id number] Product Identification Red Blood Cells Product Code E6915D34 Status Information Transfused Unit Number [id number] Blood Type 5100 Cross Match Results Compatible Glucose, Nova Meter Status: None Collection Time: 12/01/24 5:37 AM Result Value Ref Range POC-GLUCOSE 107 70 - 110 mg/dL Bankruptcy Processor [id number] Type and Screen Status: None (Preliminary result) Collection Time: 12/01/24 7:08 AM Result Value Ref Range ABO/Rh O Positive Antibody Screen Negative Glucose, Nova Meter Status: None Collection Time: 12/01/24 8:12 AM Result Value Ref Range POC-GLUCOSE 103 70 - 110 mg/dL Bankruptcy Processor [id number] Ultrasound liver Narrative: CLINICAL INDICATION: Abdominal pain. [...] Ascites ATTENDING PHYSICIAN: Dr. Haseeb Gil PHYSICIAN INTERNET SECURITY SPECIALIST: Gabriel Velasco PA-C FINDINGS: After informed consent [...] 1960 Age: 64 year(s) Corporate ID Number: [id number] Gender Female Highway Safety Engineer: Giovanna Pranav Height: 67 inches [facility] Referring Physician: HUEY HURTADO Weight: 225 pounds [...] 1.35 m/s E/A ratio: 0.97 m/s Volume gxtanzpcd824.99 LV length: 8.51 cm ml Volume sqijyxlj67.96 ml LVOT diameter: 1.79 cm Normal sized [...] Valve TR velocity: 2.51 m/s TR gradient: 25.76797 mmHg Estimated RAP: 3 mmHg RVSP: 28.12 [...] Continue to hold Lisinopril and metformin for GEMRÁN - Renal diet - Adjust meds per renal function - No emergent need of CUTTER INSPECTOR - Monitor H/H and transfuse for Hgb less than 7.0 Discussed with patient * NBA Pat - 12/01/2024 8:45 AM EDT Images from [...] The patient's fine motor coordination is intact. Zetqga-kp-slsz: LUE (3) Minimal Impairment: Able to accomplish [...] in chair, to don socks Outcome Measures [facility] Daily Living Functional Assessment How much [...] (Minimal/Contact guard/Supervision/Setup) 4=None (Modified independent/Independent) The patient's [facility] raw score is 16. The patient currently has 53.32% functional impairment. Clinicians are most likely to recommend inpatient/SNF/long term acute care registered nurse care for patients with scores between 6-17, [...] CAD, arthritis. Patient presented to [facility] with swollen abdomen, abdominal discomfort and bilateral lower extremity pitting edema.Patient's BUN/creatinine elevated, and patient subsequently transferred to [facility] for hepatorenal syndrome evaluation. Admits to [...] days. Patient's niece forced patient to visit [facility] emergency room today she really loves me. States that she lives alonewithout home support at baseline. States she takes oral Lasix at home at baseline. States over pastfew days she has doubled home Lasix dosage without increase in urine output. Denies history of kidney, heart, lung disease. States that she was taking Mounjaro for diabetes May/June 2024. Originally lost 30 pounds on Mounjaro. [...] hyperlipidemia, diabetes, CAD, arthritis. Patient presented to [facility] with swollen abdomen, abdominal discomfort and bilateral lower extremity pitting edema. Patient diagnosed with anasarca, and admitted for hepatorenal/temporary dialysis evaluation. Problems as listed below: [facility] labs reviewed prior to current hospitalization: [...] mg IV every 12. CT abdomen/pelvis from [facility] shows ascites. Therefore ordered paracentesis for [...] history as below. She initially presented to [facility] with swollen abdomen, abdominal discomfort, and bilateral lower extremity pain. Her creatinine was elevated and as a result, she was transferred to [facility] for he patorenal syndrome. Upon [...] BODY REMOVAL; Surgeon: Scott Daley MD; Location: [facility]; Service: Gastroenterology; Laterality: N/A; Allergies: No [...] POC-GLUCOSE 134 (H) 70 - 110 mg/dL Bankruptcy Processor [id number] Glucose, Nova Meter Status: Abnormal Collection Time: 12/06/24 7:26 PM Result Value Ref Range POC-GLUCOSE 170 (H) 70 - 110 mg/dL Bankruptcy Processor [id number] CBC - Hemogram (SJ-BKR) Status: Abnormal Collection [...] POC-GLUCOSE 159 (H) 70 - 110 mg/dL Bankruptcy Processor [id number] ECG 12 lead Status: None (In process) Collection Time: 12/07/24 10:29 AM Result Value Ref Range VENTRICULAR RATE EKG/MIN 91 BPM ATRIAL RATE (MCT) 91 BPM MI Interval 142 ms QRS-INTERVAL (MSEC) 88 ms QT Interval 376 ms QTC Interval 462 ms P [place] 39 degrees R AXIS (MCT) -3 degrees T Wave [place] 4 degrees Cisne Diagnosis Normal sinus rhythm Nonspecific T wave [...] - 18.0 g/dL PaO2/FIO2 calculated 203.0 [facility] COLLECTION SITE Right Radial Arterial Puncture Yes Blood Gas PT Temperature C 37.0 Sen's Test Acceptable Critical Values Notification Critical Blood gas called to TRAY LORENZ RN . [place] [id number] and confirmed on 12/07/2024 10:51 ABG Number of Draw Attempts 1 FIO2 21.0 Blood Gas Temperature Corrected Results No No Glucose, Nova Meter Status: Abnormal Collection Time: 12/07/24 10:54 AM Result Value Ref Range POC-GLUCOSE 146 (H) 70 - 110 mg/dL Bankruptcy Processor [id number] Radiology Radiology Results (last day) Procedure Component Value Units Date/Time XR chest AP portable [[id number]] Resulted: 12/07/24 1353 Order Status: Sent Updated: 12/07/24 1426 Microbiology: Microbiology Results (last 7 days) Procedure Component Value Units Date/Time Anaerobic Culture [[id number]] Collected: 11/30/24 1603 Order Status: Completed Specimen: Peritoneal Fluid from Body Fluid Updated: 12/05/24 0634 Result No Anaerobic growth Narrative: Specimen Description: peritoneal fluid Blood Culture [[id number]] Collected: 11/30/24 0340 Order Status: Completed Specimen: Blood from Arm, Left Updated: 12/05/24 0501 Result No growth in 5 days Blood Culture [[id number]] Collected: 11/30/24 0342 Order Status: Completed Specimen: Blood from Arm, Right Updated: 12/05/24 0501 Result No growth in 5 days Body Fluid Culture + Gram Stain [[id number]] Collected: 11/30/24 1603 Order Status: Completed Specimen: Peritoneal Fluid from Body Fluid Updated: 12/03/24 0907 Result No growth Gram Stain Result No organisms seen No cells seen Narrative: Specimen Description: peritoneal fluid Body Fluid/CSF - Path Review () [[id number]] Collected: 11/30/24 1603 Order Status: Completed Specimen: Peritoneal Fluid from Body Fluid Updated: 12/03/24 0654 SENT TO PATHOLOGY FOR REVIEW Yes Scan Result Mesothelial cells. MD German 12/02/2024 AFB Culture And Stain [[id number]] Collected: 11/30/24 1603 Order Status: Completed Specimen: Peritoneal Fluid from Body Fluid Updated: 12/01/24 1410 AFB Smear No acid fast bacilli seen Narrative: Specimen Description: peritoneal fluid Glucose, body fluid [[id number]] Collected: 11/30/24 1603 Order Status: Completed Specimen: Body Fluid from Peritoneal Fluid Updated: 12/01/24 0710 Glucose, Body Fluid 107 mg/dL BODY FLUID TYPE Peritoneal Narrative: This test has been modified from the manager enrollment's instructions and its performance characteristics were determined by the laboratory. The reference intervals and other method performance specifications are unavailable for this test. It is recommended to interpret body fluid concentrations in comparison with the corresponding serum or plasma concentrations and to integrate test results into the clinical context. Protein, body fluid [[id number]] Collected: 11/30/241602 Order Status: Completed Specimen: Body Fluid from Peritoneal Fluid Updated: 12/01/24709 Protein, Fluid 1.9 g/dL BODY FLUID TYPE Peritoneal Narrative: This test has been modified from the manager enrollment's instructions and its performance characteristics were determined by the laboratory. The reference intervals and other method performance specifications are unavailable for this test. It is recommended to interpret body fluid concentrations in comparison with the corresponding serum or plasma concentrations and to integrate test results into the clinical context. Urine Culture [[id number]] Collected: 11/30/24 1135 Order Status: Completed Specimen: Urine, Clean Catch Updated: 12/01/24648 Result Recollect Specimen - 3 or more organisms suggests contamination Body fluid cell count with differential [[id number]] (Abnormal) Collected: 11/30/241602 Order Status: Completed Specimen: [...] fluids are not defined. DIFFERENTIAL, BODY FLUID [[id number]] Collected: 11/30/241602 Order Status: Completed Specimen: Peritoneal Fluid from Body Fluid Updated: 11/30/242048 Neutrophils Fluid 5 % Lymphocytes Fluid 46 % Unidentified Mononuclear Cells BF 49 % Lactate dehydrogenase (LDH), body fluid [[id number]] Collected: 11/30/241602 Order Status: Completed Specimen: Peritoneal Fluid from Body Fluid Updated: 11/30/24 1819 LDH, Fluid 71 U/L BODY FLUID TYPE Peritoneal Narrative: This test has been modified from the manager enrollment's instructions and its performance characteristics were determined by the laboratory. The reference intervals and other method performance specifications are unavailable for this test. It is recommended to interpret body fluid concentrations in comparison with the corresponding serum or plasma concentrations and to integrate test results into the clinical context. Fungus Culture W/ROSA MARIA Or Nimisha Ink [[id number]] Collected: 11/30/24 1603 Order Status: Completed Specimen: Peritoneal Fluid from Body Fluid Updated: 11/30/24 1754 ROSA MARIA Prep No fungal elements seen Narrative: Specimen Description: peritoneal fluid Total Protein, Body Fluid(SENDOUT) [[id number]] Collected: 11/30/24 160 Order Status: Canceled Specimen: Peritoneal Fluid from Body Fluid Updated: 11/30/24 1634 Glucose Body Fluid(SENDOUT) [[id number]] Collected: 11/30/24 1603 Order Status: Canceled Specimen: [...] to continue with albumin/diuretics no indication for CUTTER INSPECTOR BIPAP 14/8 Fio2 50%,ABG in 2 hrs [...] personally evaluated the patient and performed a uegm-ir-qqsv diagnostic evaluation on this patient; I have reviewed history, performed physical examination, reviewed laboratory studies. , andreviewed images independent of radiologist. I have actively directed the medical care, formulated assessemnt and plan of care. Patient requires a high complexity of decision making for assessment. 46 minutes pulmonary care clinical time was spent. Voice restaurant culinary manager technology (DepotPoint) is used for dictation of this note and sound-alike words might be erroneously placed despite reviewing the note for accuracy.Errors in dictation may reflect use of voice recognition software and not all errors in restaurant culinary manager may have been detectedprior to signing * KENNEY Zaragoza - 12/07/2024 10:29 AM EDTAssociated Order(s): IP CONSULT TO CARE COORDINATION Summary: Pending SNF/Rehab Discharge Plan Progress Note [facility] can offer bed for patient, semi-private room. Address: [address] [place] [address] [place] [address] - about 56 minutes (36 miles) from patient's address. [facility] started precert, 12/07, 10:33. Insurance will require updated PT/OT notes for rehab. Other SNF options: [facility] (over an hour away from home address), [facility]. Sister is requesting rehab. On 12/06, patient [...] call Jojo da silva at phone # [phone], received busy tone, unable to reach sister at this time. Patient will need a precert. KENNEY Zaragoza * Rea Bishop RD - 12/06/2024 9:46 AM EDT ANALISA ADIME NUTRITION ASSESSMENT ADIME Nutrition Assessment The patient is a 64 y.o. female admitted with acute renal failure, live cirrhosis, ascites (a/sp paracentesis) Present on Admission: Anasarca (Admitting Diagnoses) Nutrition Evaluation Type: Initial Assessment Reason for Evaluation: RD screen for LOS Subjective Comments: 12/06: Pt on heart healthy, 60g CHO diet with poor PO intakes reported. 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 Requested chicken noodle soup for lunch. Agreeable to ONS TID. Past Medical/Surgical History: Past Medical History: Diagnosis Date Cirrhosis, non-alcoholic (HCC) Diabetes mellitus (HCC) Hypertension Past Surgical History: Procedure Laterality Date ESOPHAGOGASTRODUODENOSCOPY (EGD),REMOVAL FOREIGN BODY N/A 12/01/2024 Procedure: EGD, WITH FOREIGN BODY REMOVAL; Surgeon: Scott Daley MD; Location: [facility]; Service: Gastroenterology; Laterality: N/A; Vitals and [...] with severity: none Energy intake hx: good call out clerk (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 She initially presented to [facility] with swollen abdomen, abdominal discomfort, and bilateral lower extremity pain. Her creatinine was elevated and as a result, she was transferred to [facility] for he patorenal syndrome. Upon [...] BODY REMOVAL; Surgeon: Scott Daley MD; Location: [facility]; Service: Gastroenterology; Laterality: N/A; Allergies: No [...] POC-GLUCOSE 128 (H) 70 - 110 mg/dL Bankruptcy Processor [id number] Hemoglobin Status: Abnormal Collection Time: 12/02/24 6:03 PM Result Value Ref Range Hemoglobin 9.1 (L) 11.2 - 15.7 GM/DL Glucose, Nova Meter Status: Abnormal Collection Time: 12/02/24 8:06 PM Result Value Ref Range POC-GLUCOSE 144 (H) 70 - 110 mg/dL Bankruptcy Processor [id number] Hemoglobin Status: Abnormal Collection Time: 12/02/24 11:06 PM Result Value Ref Range Hemoglobin 8.9 (L) 11.2 - 15.7 GM/DL Glucose, Nova Meter Status: Abnormal Collection Time: 12/03/24 1:10 AM Result Value Ref Range POC-GLUCOSE 164 (H) 70 - 110 mg/dL Bankruptcy Processor [id number] Glucose, Nova Meter Status: Abnormal Collection Time: 12/03/24 1:12 AM Result Value Ref Range POC-GLUCOSE 168 (H) 70 - 110 mg/dL Bankruptcy Processor [id number] Glucose, Nova Meter Status: Abnormal Collection Time: 12/03/24 5:13 AM Result Value Ref Range POC-GLUCOSE 142 (H) 70 - 110 mg/dL Bankruptcy Processor [id number] Magnesium Status: Normal Collection Time: 12/03/24 7:39 [...] 362 ms QTC Interval 459 ms P [place] 40 degrees R AXIS (MCT) 8 degrees T Wave [place] -8 degrees Cisne Diagnosis Normal sinus rhythm Normal ECG No previous ECGs available Glucose, Nova Meter Status: Abnormal Collection Time: 12/03/24 10:45 AM Result Value Ref Range POC-GLUCOSE 156 (H) 70 - 110 mg/dL Bankruptcy Processor [id number] ECG 12 lead Status: None (In process) Collection Time: 12/03/24 2:16 PM Result Value Ref Range VENTRICULAR RATE EKG/MIN 136 BPM ATRIAL RATE (MCT) 73 BPM QRS-INTERVAL (MSEC) 88 ms QT Interval 304 ms QTC Interval 457 ms R AXIS (MCT) -11 degrees T Wave [place] -58 degrees Cisne Diagnosis Atrial fibrillation with rapid ventricular response Possible Anterolateral infarct , age undetermined Abnormal ECG When compared with ECG of 03-DEC-2024 10:39, Atrial fibrillation has replaced Sinus rhythm Radiology Radiology Results (last day) Procedure Component Value Units Date/Time CT bone marrow biopsy [[id number]] Collected: 12/02/24 7822 Order Status: Completed Updated: 12/02/24 8860 Narrative: CT GUIDED BONE MARROW ASPIRATION AND CORE BIOPSY. HISTORY: Pancytopenia. ATTENDING RADIOLOGIST: Dr. Haseeb Gil. PHYSICIAN INTERNET SECURITY SPECIALIST: Sandra Ramsey PA-C PROCEDURE: After informed consent [...] Date/Time Body Fluid Culture + Gram Stain [[id number]] Collected: 11/30/24 1603 Order Status: Completed Specimen: Peritoneal Fluid from Body Fluid Updated: 12/03/24 0907 Result No growth Gram Stain Result No organisms seen No cells seen Narrative: Specimen Description: peritoneal fluid Anaerobic Culture [[id number]] Collected: 11/30/24 1603 Order Status: Completed Specimen: Peritoneal Fluid from Body Fluid Updated: 12/03/24 0842 Result No Anaerobic growth Narrative: Specimen Description: peritoneal fluid Body Fluid/CSF - Path Review () [[id number]] Collected: 11/30/24 1603 Order Status: Completed Specimen: Peritoneal Fluid from Body Fluid Updated: 12/03/24 0654 SENT TO PATHOLOGY FOR REVIEW Yes Scan Result Mesothelial cells. MD German 12/02/2024 Blood Culture [[id number]] Collected: 11/30/24 0340 Order Status: Completed Specimen: Blood from Arm, Left Updated: 12/03/24 0501 Result No growth in 3 days Blood Culture [[id number]] Collected: 11/30/24 0342 Order Status: Completed Specimen: Blood from Arm, Right Updated: 12/03/24 0501 Result No growth in 3 days AFB Culture And Stain [[id number]] Collected: 11/30/24 1603 Order Status: Completed Specimen: Peritoneal Fluid from Body Fluid Updated: 12/01/24 1410 AFB Smear No acid fast bacilli seen Narrative: Specimen Description: peritoneal fluid Glucose, body fluid [[id number]] Collected: 11/30/24 1603 Order Status: Completed Specimen: Body Fluid from Peritoneal Fluid Updated: 12/01/24 0710 Glucose, Body Fluid 107 mg/dL BODY FLUID TYPE Peritoneal Narrative: This test has been modified from the manager enrollment's instructions and its performance characteristics were determined by the laboratory. The reference intervals and other method performance specifications are unavailable for this test. It is recommended to interpret body fluid concentrations in comparison with the corresponding serum or plasma concentrations and to integrate test results into the clinical context. Protein, body fluid [[id number]] Collected: 11/30/241602 Order Status: Completed Specimen: Body Fluid from Peritoneal Fluid Updated: 12/01/24 0710 Protein, Fluid 1.9 g/dL BODY FLUID TYPE Peritoneal Narrative: This test has been modified from the manager enrollment's instructions and its performance characteristics were determined by the laboratory. The reference intervals and other method performance specifications are unavailable for this test. It is recommended to interpret body fluid concentrations in comparison with the corresponding serum or plasma concentrations and to integrate test results into the clinical context. Urine Culture [[id number]] Collected: 11/30/24 1135 Order Status: Completed Specimen: Urine, Clean Catch Updated: 12/01/24 0649 Result Recollect Specimen - 3 or more organisms suggests contamination Body fluid cell count with differential [[id number]] (Abnormal) Collected: 11/30/24 160 Order Status: Completed [...] fluids are not defined. DIFFERENTIAL, BODY FLUID [[id number]] Collected: 11/30/24 160 Order Status: Completed Specimen: Peritoneal Fluid from Body Fluid Updated: 11/30/24 2049 Neutrophils Fluid 5 % Lymphocytes Fluid 46 % Unidentified Mononuclear Cells BF 49 % Lactate dehydrogenase (LDH), body fluid [[id number]] Collected: 11/30/24 160 Order Status: Completed Specimen: Peritoneal Fluid from Body Fluid Updated: 11/30/24 1819 LDH, Fluid 71 U/L BODY FLUID TYPE Peritoneal Narrative: This test has been modified from the manager enrollment's instructions and its performance characteristics were determined by the laboratory. The reference intervals and other method performance specifications are unavailable for this test. It is recommended to interpret body fluid concentrations in comparison with the corresponding serum or plasma concentrations and to integrate test results into the clinical context. Fungus Culture W/ROSA MARIA Or Nimisha Ink [[id number]] Collected: 11/30/24 160 Order Status: Completed Specimen: Peritoneal Fluid from Body Fluid Updated: 11/30/24 1754 ROSA MARIA Prep No fungal elements seen Narrative: Specimen Description: peritoneal fluid Total Protein, Body Fluid(SENDOUT) [[id number]] Collected: 11/30/24 160 Order Status: Canceled Specimen: Peritoneal Fluid from Body Fluid Updated: 11/30/24 1634 Glucose Body Fluid(SENDOUT) [[id number]] Collected: 11/30/24 160 Order Status: Canceled Specimen: Peritoneal Fluid from Body Fluid Updated: 11/30/24 1634 Urine Culture [[id number]] Collected: 11/30/24 1135 Order Status: Canceled Specimen: [...] and lisinopril. Per nephrology there is no CUTTER INSPECTOR indication at this time. Ultrasound renal on [...] multidisciplinary team including nurse practitioner, nurse, RT, aqua ammonia operator, pharmacist, and case management during multidisciplinary round. I Dr.Hazim Jeramy MD, have personally evaluated the patient and performed a zuie-dg-exzo diagnostic evaluation on this patient; I have Obtained history, performed physical examination, reviewed laboratory studies. I have reviewed images independent of radiologist. I have actively directed the medical care, formulated diagnosis, and the plan of care. Patient requires a high complexity of decision making for assessment. Voice restaurant culinary manager technology (DepotPoint) is used for dictation of this note and sound-alike words might be erroneously placed despite reviewing the note for accuracy. Errors in dictation may reflect use of voice recognition software and not all errors in restaurant culinary manager may have been detected prior to signing. It may contain errors and words that were not intended to be used. Please contact the provider for errors or clarifications. * Deysi Foss MD - 12/03/2024 11:11 AM EDTAssociated Order(s): FS_MODEL_IP IP CONSULT TO ELECTROPHYSIOLOGY EP Consult Note Patient Name: Mary Gar Admission Date: 11/30/2024 Primary Care Provider: [facility] Find-a-Doc Chief Complaint/Reason for Consult: No chief complaint on file. History of Present Illness: Mary Gar is a 64 y.o. female, admitted on: 11/30/2024 1:43 AM. presented to [facility] with swollen abdomen, abdominal discomfort and bilateral lower extremity pitting edema. Patient's BUN/creatinine elevated, and patient subsequently transferred to [facility] for hepatorenal syndrome evaluation. Admits to [...] And Stain AFB Culture And Stain [facility] Non[facility] Former Cytology [facility] Former Cytology DIFFERENTIAL, BODY FLUID DIFFERENTIAL, BODY FLUID Body Fluid/CSF - Path Review () Body Fluid/CSF - Path Review () [facility] BONE MARROW SMEAR, ASPIRATION, AND STAIN [facility] BONE MARROW SMEAR, ASPIRATION, AND STAIN CANCELED: [...] BODY REMOVAL; Surgeon: Scott Daley MD; [facility] [facility]; Service: Gastroenterology; Laterality: N/A; Allergies: No [...] Normal range of motion. Integumentary: Warm, Dry, [place]. Neurologic: No obvious focal deficit Psychiatric: Cooperative, Appropriate mood & affect. Labs, Imaging, and Other Studies: Echo Results (last 7 days) Procedure Component Value Units Date/Time ECHO COMPLETE (DOPPLER / COLOR) W OR WO CONTRAST [[id number]] Collected: 11/30/24 0725 Order Status: Completed Updated: 11/30/24 1046 Narrative: TRANSTHORACIC ECHOCARDIOGRAPHY REPORT Demographics Patient Name: RIN JONES : 1960 Age: 64 year(s) Corporate ID Number: [id number] Gender Female Highway Safety Engineer: Giovanna Rock Height: 67 inches [facility] Referring Physician: HUEY HURTADO Weight: 225 pounds [...] 1.35 m/s E/A ratio: 0.97 m/s Volume [id number] LV length: 8.51 cm ml Volume .96 [...] Valve TR velocity: 2.51 m/s TR gradient: 25.11137 mmHg Estimated RAP: 3 mmHg RVSP: 28.12 [...] (DOPPLER / COLOR) W OR WO CONTRAST [[id number]] Collected: 11/30/24724 Order Status: Completed Updated: 11/30/24 104 Narrative: TRANSTHORACIC ECHOCARDIOGRAPHY REPORT Demographics Patient Name: RIN JONES : 1960 Age: 64 year(s) Corporate ID Number: [id number] Gender Female Highway Safety Engineer: Giovanna Rock Height: 67 inches [facility] Referring Physician: HUEY HURTADO Weight: 225 pounds [...] 1.35 m/s E/A ratio: 0.97 m/s Volume [id number] LV length: 8.51 cm ml Volume .96 [...] Valve TR velocity: 2.51 m/s TR gradient: 25.54414 mmHg Estimated RAP: 3 mmHg RVSP: 28.12 [...] imaging. Assessment and Plan: *Paroxysmal Atrial Fib [id number] of 2 also have some wide-complex tachycardia [...] Partner Violence: Unknown (05/06/2023) Received from [facility] Abuse Screen Unsafe at Home or Work/School: [...] Component Value Units Date/Time Ultrasound renal limited [[id number]] Collected: 11/30/241645 Order Status: Completed Updated: 11/30/241648 [...] dictated by Ronnell Tom MD Ultrasound liver [[id number]] Collected: 11/30/24 1643 Order Status: Completed Updated: [...] and dictated by SABINE Yang. US paracentesis [[id number]] Collected: 11/30/24 1637 Order Status: Completed Updated: 11/30/241654 Narrative: ULTRASOUND-GUIDED PARACENTESIS HISTORY: Ascites ATTENDING PHYSICIAN: Dr. Haseeb Gil PHYSICIAN INTERNET SECURITY SPECIALIST: Gabriel Velasco PA-C FINDINGS: After informed consent [...] by Dr. Haseeb Gil. Transcribed by Gabriel Velasco, PA-C. XR chest AP portable [[id number]] Collected: 11/30/24 1215 Order Status: Completed Updated: [...] Transcribed by Marielos Sotelo PA-C. renal complete [[id number]] Order Status: Canceled Admission on 11/30/2024 Component [...] Diabetic 5.7 - 6.4 Prediabetic <5.7 Non-diabetic eAV Glucose 11/30/2024 93.93 70 - 126 mg/dL Final POC-GLUCOSE 11/30/2024 96 70 - 110 mg/dL Final In the event of poor peripheral blood flow, venous or arterial blood should be used due to the potential of erroneous results. Protocols Followed Bankruptcy Processor 11/30/2024 [id number] Final Iron 11/30/2024 64 50 - 170 ug/dL Final Vitamin D 25-Hydroxy 11/30/2024 22.0 (L) 30 - 80 ng/mL Final Vitamin B12 11/30/2024 678 213 - 816 pg/mL Final Color, UA 11/30/2024 Light Yellow Final Clarity, UA 11/30/2024 Turbid (A) Clear Final Specific [place], UA 11/30/2024 1.011 1.005 - 1.030 Final [...] potential of erroneous results. Notified Nurse RBV Bankruptcy Processor 11/30/2024 [id number] Final WBC, UA 11/30/2024 21-50 (A) None [...] + Ext: +++Pedal edema , no cyanosis,PPP ADOPTION SERVICES MANAGER: Alert,Oriented. Cranial nerves intact, No focal deficit [...] Range POC-GLUCOSE 96 70 - 110 mg/dL Bankruptcy Processor [id number] Hemoglobin A1c Status: Normal Collection Time: 11/30/24 [...] renal function - No emergent need of CUTTER INSPECTOR - Monitor H/H and transfuse for Hgb [...] cannot remember results. This was performed at [facility] several year ago. She takes Plavix for her CAD s/p stents 4-5 years ago. She also takes ASA. She has not seen a GI provider since 2021. She has an appt with Dr. Law Cote in [place] on December 07. No recent abdominal imaging. [...] Lonely or Isolated: 0 Received from [facility] Abuse Screen Housing Stability: Low Risk (11/30/2024) [...] Range POC-GLUCOSE 96 70 - 110 mg/dL Bankruptcy Processor [id number] Radiology Results (last 3 days) No results [...] Description 01/27/2025 10:45 AM EDT Office Visit [facility] Electrophysiology [address] [place] [address] Deysi Foss MD [address] [place] [address] Pending Results Name Type Priority Associated Diagnoses [...] POC Routine 12/13/2024 5:46 AM EDT [facility] CBC SCAN Routine 12/13/2024 3:15 AM EDT [...] POC Routine 12/12/2024 5:43 AM EDT [facility] CBC SCAN Routine 12/12/2024 3:47 AM EDT [...] AM EDT NOVA GLUCOSE POC Routine 12/10/2024 7:3 8 PM EDT NOVA GLUCOSE POC Routine 12/10/2024 [...] US PARACENTESIS Routine 11/30/2024 4:17 PM EDT H DIFFERENTIAL, BODY FLUID Routine 11/30/2024 4:03 PM EDT [facility] CYTOLOGY ([facility]) AP Routine 11/30/2024 4:03 PM EDT Melena [...] Glucose, Nova Meter (12/14/2024 3:41 PM EDT) [facility] POC-GLUCOSE 203(H) 70 - 110 mg/dL 12/14/2024 3:42 PM EDT [facility] Comment: In the event of poor peripheral blood flow, venous or arterial blood should be used due to the potential of erroneous results. Notified Nurse RBV Bankruptcy Processor [id number] 12/14/2024 3:42 PM EDT [facility] Blood WHOLE BLOOD / Unknown 12/14/2024 3:41 PM EDT 12/14/2024 3:42 PM EDT Narrative [facility] - 12/14/2024 3:42 PM EDT Bankruptcy Processor ID is - [id number] David Coffman PA-C POINT OF CARE TEST ORDERABLES Final Result Performing Organization Address [facility] Co de Phone Number [facility] [address] [phone] * (ABNORMAL) Glucose, Nova Meter (12/14/2024 10:29 AM EDT) Pathologist [facility] POC-GLUCOSE 215(H) 70 - 110 mg/dL 12/14/2024 10:30 AM EDT [facility] Comment: In the event of poor peripheral blood flow, venous or arterial blood should be used due to the potential of erroneous results. Notified Nurse RBV Bankruptcy Processor [id number] 12/14/2024 10:30 AM EDT [facility] Blood WHOLE BLOOD / Unknown 12/14/2024 10:29 AM EDT 12/14/2024 10:30 AM EDT [facility] - 12/14/2024 10:30 AM EDT Bankruptcy Processor ID is - [id number] David Coffman PA-C POINT OF CARE TEST ORDERABLES Final Result Performing Organization Address [facility] de Phone Number [facility] [address] [phone] * ECG 12 lead (12/14/2024 9:10 AM EDT) VENTRICULAR RATE EKG/MIN 89 BPM GE MUSE ATRIAL RATE (MCT) 89 BPM GE MUSE MI Interval 146 ms GE MUSE QRS-INTERVAL (MSEC) 86 ms GE MUSE QT Interval 432 ms GE MUSE QTC Interval 525 ms GE MUSE P [place] 34 degrees GE MUSE R AXIS (MCT) -13 degrees GE MUSE T Wave [place] -2 degrees GE MUSE Cisne Diagnosis Normal sinus rhythm Septal infarct (cited on or before 14-DEC-2024 ) Confirmed by DEYSI FOSS M.D. ([id number]) on 12/14/2024 5:07:26 PM GE MUSE 12/14/2024 9:10 AM EDT 12/14/2024 5:07 PM EDT Deysi Foss MD ECG ORDERABLES Final Result GE MUSE * (ABNORMAL) Glucose, Nova Meter (12/14/2024 4:24 AM EDT) POC-GLUCOSE 140(H) 70 - 110 mg/dL 12/14/2024 4:26 AM EDT [facility] Comment: In the event of poor peripheral blood flow, venous or arterial blood should be used due to the potential of erroneous results. Protocols Followed Bankruptcy Processor [id number] 12/14/2024 4:26 AM EDT [facility] Blood WHOLE BLOOD / Unknown 12/14/2024 4:24 AM EDT 12/14/2024 4:26 AM EDT Narrative [facility] - 12/14/2024 4:26 AM EDT Bankruptcy Processor ID is - [id number] us David Coffman PA-C POINT OF CARE TEST ORDERABLES Final Result Performing Organization Address City/[facility]/ZIP Co de Phone Number [facility] [address] [phone] * (ABNORMAL) Comprehensive metabolic panel (12/14/2024 2:54 AM EDT) Sodium 145 136 - 145 meq/L 12/14/2024 4:13 AM EDT [facility] Potassium 3.5 3.4 - 5.1 meq/L 12/14/2024 4:13 AM EDT [facility] Chloride 109 98 - 112 meq/L 12/14/2024 4:13 AM EDT [facility] CO2 27 22 - 29 meq/L 12/14/2024 4:13 AM [facility] Calcium 8.6 8.4 - 10.2 mg/dL 12/14/2024 4:13 AM [facility] Glucose 146(H) 82 - 115 mg/dL 12/14/2024 4:13 AM [facility] BUN 67.7(H) 9.8 - 20.1 mg/dL 12/14/2024 4:13 AM [facility] Creatinine 2.22(H) 0.57 - 1.11 mg/dL 12/14/2024 4:13 AM [facility] BUN/Creatinine 30(H) 8 - 20 12/14/2024 4:13 AM [facility] eGFR (mL/min/1.73m2) 25(L) >=60 mL/min/1. 73m2 12/14/2024 4:13 AM [facility] Albumin 3.2(L) 3.5 - 5.0 g/dL 12/14/2024 4:13 AM [facility] Alkaline Phosphatase 56 40 - 150 U/L 12/14/2024 4:13 AM [facility] ALT 21 <=34 U/L 12/14/2024 4:13 AM [facility] Comment: ALT2 reagent used for testing does not contain P5P supplementation and therefore may miss ALT elevations in patients with B6 deficiency. This population may be as high as 10% in the [place], with risk factors including malabsorption, drug interactions, and alcoholic hepatitis. AST 52(H) 11 - 34 U/L 12/14/2024 4:13 AM [facility] Comment: AST2 reagent used for testing does not contain P5P supplementation and therefore may miss AST elevations in patients with B6 deficiency. This population may be as high as 10% in the [place], with risk factors including malabsorption, drug interactions, and alcoholic hepatitis. Total Bilirubin 0.9 0.2 - 1.2 mg/dL 12/14/2024 4:13 AM [facility] Protein, Total 5.9(L) 6.4 - 8.3 g/dL 12/14/2024 4:13 AM [facility] Globulin 2.7 2.5 - 4.1 g/dL 12/14/2024 4:13 AM EDT [facility] Anion Gap 13(H) 4 - 12 12/14/2024 4:13 AM EDT [facility] A/G Ratio 1.2 0.7 - 1.9 12/14/2024 4:13 AM EDT [facility] Osmolality Calc 311.0 mOsm/kg 4:13 AM EDT [facility] Blood Venipuncture / Unknown 12/14/2024 2:54 AM EDT 12/14/2024 3:26 AM EDT David Coffman PA-C LAB BLOOD ORDERABLES Final Re sult [facility] [address] [phone] * (ABNORMAL) CBC with automated diff (12/14/2024 2:54 AM EDT) WBC 1.4(LL) 4.0 - 10.0 K/ L 12/14/2024 3:45 AM EDT [facility] RBC 2.45(L) 3.93 - 5.22 M/ L 12/14/2024 3:45 AM EDT [facility] Hemoglobin 7.6(L) 11.2 - 15.7 GM/DL 12/14/2024 3:45 AM EDT [facility] Hematocrit 24.1(L) 34.1 - 44.9 % 12/14/2024 3:45 AM EDT [facility] MCV 98(H) 79 - 95 fL 12/14/2024 3:45 AM EDT [facility] MCH 31.0 25.6 - 32.2 pg 12/14/2024 3:45 AM EDT [facility] MCHC 31.5(L) 32.2 - 35.5 GM/DL 12/14/2024 3:45 AM EDT [facility] RDW 16.3(H) 11.7 - 14.4 % 12/14/2024 3:45 AM EDT [facility] Platelets 51(L) 140 - 375 K/CU MM 12/14/2024 3:45 AM EDT [facility] MPV 12.3 9.4 - 12.3 fL 12/14/2024 3:45 AM EDT [facility] % Neutros 54 34 - 71 % 12/14/2024 3:45 AM EDT [facility] % Lymphs 32 19 - 52 % 12/14/2024 3:45 AM EDT [facility] % Monos 14(H) 5 - 13 % 12/14/2024 3:45 AM EDT [facility] % Eos 0(L) 1 - 6 % 12/14/2024 3:45 AM EDT [facility] % Baso 1 0 - 1 % 12/14/2024 3:45 AM EDT [facility] NRBC Absolute <0.01 0 - 0.012 K/ul 12/14/2024 3:45 AM EDT [facility] # Neutros 0.76(L) 1.56 - 6.13 K/ L 12/14/2024 3:45 AM EDT [facility] # Lymphs 0.45(L) 1.18 - 3.74 K/ L 12/14/2024 3:45 AM EDT [facility] # Monos 0.19(L) 0.24 - 0.86 K/ L 12/14/2024 3:45 AM EDT [facility] # Eos <0.03(L) 0.04 - 0.36 K/ L 12/14/2024 3:45 AM EDT [facility] # Baso <0.03 0.01 - 0.08 K/ L 12/14/2024 3:45 AM EDT [facility] Immature Granulocytes-Re lative 0.00(L) 0.01 - 0.43 % 12/14/2024 3:45 AM T [facility] # IG <0.03 0.00 - 0.03 K/uL 12/14/2024 3:45 AM T [facility] Blood Venipuncture / Unknown 12/14/2024 2:54 AM EDT 12/14/2024 3:27 AM EDT Narrative [facility] - 12/14/2024 3:45 AM [...] Flag noted Atypical Lymph flag noted us David Coffman PA-C LAB BLOOD ORDERABLES Final Re sult [facility] [address] [place] [address], [facility] [phone] * (ABNORMAL) Glucose, Nova Meter (12/13/2024 8:20 PM EDT) POC-GLUCOSE 186(H) 70 - 110 mg/dL 12/13/2024 8:21 PM EDT [facility] Comment: In the event of poor peripheral blood flow, venous or arterial blood should be used due to the potential of erroneous results. Protocols Followed Bankruptcy Processor [id number] 12/13/2024 8:21 PM EDT [facility] Blood WHOLE BLOOD / Unknown 12/13/2024 8:20 PM EDT 12/13/2024 8:21 PM EDT Narrative [facility] - 12/13/2024 8:21 PM EDT Bankruptcy Processor ID is - [id number] us David Coffman PA-C POINT OF CARE TEST ORDERABLES Final Result Performing Organization Address [facility]/ZIP Co de Phone Number [facility] [address] [place] [address], [facility] [phone] * (ABNORMAL) Glucose, Nova Meter (12/13/2024 4:24 PM EDT) POC-GLUCOSE 156(H) 70 - 110 mg/dL 12/13/2024 4:25 PM EDT [facility] Comment: In the event of poor peripheral blood flow, venous or arterial blood should be used due to the potential of erroneous results. Notified Nurse RBV Bankruptcy Processor [id number] 12/13/2024 4:25 PM EDT [facility] Blood WHOLE BLOOD / Unknown 12/13/2024 4:24 PM EDT 12/13/2024 4:25 PM EDT Narrative [facility] - 12/13/2024 4:25 PM EDT Bankruptcy Processor ID is - [id number] David Coffman PA-C POINT OF CARE TEST ORDERABLES Final Result Performing Organization Address [facility] Co de Phone Number [facility] [address] [phone] * ECG 12 lead (12/13/2024 1:14 PM EDT) VENTRICULAR RATE EKG/MIN 86 BPM GE MUSE ATRIAL RATE (MCT) 86 BPM GE MUSE MI Interval 144 ms GE MUSE QRS-INTERVAL (MSEC) 86 ms GE MUSE QT Interval 384 ms GE MUSE QTC Interval 459 ms GE MUSE P [place] 46 degrees GE MUSE R AXIS (MCT) -4 degrees GE MUSE T Wave [place] 43 degrees GE MUSE Cisne Diagnosis Normal sinus rhythm Poor R wave progression Confirmed by Aleksandr ROBIN, SANJIV ([id number]) on 12/14/2024 1:01:45 AM GE MUSE 12/13/2024 1:14 PM EDT 12/14/2024 1:01 AM EDT Deysi Foss MD ECG ORDERABLES Final Result Performing Organization Address [facility] Co de Phone Number GE MUSE * (ABNORMAL) Glucose, Nova Meter (12/13/2024 1:07 PM EDT) POC-GLUCOSE 235(H) 70 - 110 mg/dL 12/15/2024 12:32 AM EDT [facility] Comment:In the event of poor peripheral blood flow, venous or arterial blood should be used due to the potential of erroneous results. Bankruptcy Processor [id number] 12/15/2024 12:32 AM EDT [facility] Blood WHOLE BLOOD / Unknown 12/13/2024 1:07 PM EDT 12/15/2024 12:32 AM EDT Narrative [facility] - 12/15/2024 12:32 AM EDT Bankruptcy Processor ID is - [id number] David Andry Coffman PA-C POINT OF CARE TEST ORDERABLES Final Result Performing Organization Address [facility] Phone Number [facility] [address] [phone] * (ABNORMAL) Glucose, Nova Meter (12/13/2024 11:15 AM EDT) POC-GLUCOSE 221(H) 70 - 110 mg/dL 12/13/2024 11:17 AM EDT [facility] Comment:In the event of poor peripheral blood flow, venous or arterial blood should be used due to the potential of erroneous results. Bankruptcy Processor [id number] 12/13/2024 11:17 AM EDT [facility] Blood WHOLE BLOOD / Unknown 12/13/2024 11:15 AM EDT 12/13/2024 11:17 AM EDT Narrative [facility] - 12/13/2024 11:17 AM EDT Bankruptcy Processor ID is - [id number] David Andry VALDIVIA-C POINT OF CARE TEST ORDERABLES Final Result Performing Organization Address [facility] Phone Number [facility] [address] [phone] * (ABNORMAL) Glucose, Nova Meter (12/13/2024 5:46 AM EDT) POC-GLUCOSE 127(H) 70 - 110 mg/dL 12/13/2024 5:48 AM EDT [facility] Comment: In the event of poor peripheral blood flow, venous or arterial blood should be used due to the potential of erroneous results. Protocols Followed Notified Nurse RBV Bankruptcy Processor [id number] 12/13/2024 5:48 AM EDT [facility] Blood WHOLE BLOOD / Unknown 12/13/2024 5:46 AM EDT 12/13/2024 5:48 AM EDT Narrative [facility] - 12/13/2024 5:48 AM EDT Bankruptcy Processor ID is - [id number] us David Coffman PA-C POINT OF CARE TEST ORDERABLES Final Result Performing Organization Address [facility] de Phone Number [facility] [address] [phone] * (ABNORMAL) CBC Scan (12/13/2024 3:15 AM EDT) Platelet Estimate Decreased (A) Adequate 12/13/2024 4:55 AM EDT [facility] RBC Morphology abnormal( A) Normal 12/13/2024 4:55 AM EDT [facility] Anisocytosis 1+ 12/13/2024 4:55 AM EDT [facility] Hypochromia 1+ 12/13/2024 4:55 AM EDT [facility] Ovalocytes 1+ 12/13/2024 4:55 AM EDT [facility] Blood Venipuncture / Unknown 12/13/2024 3:15 AM EDT 12/13/2024 3:27 AM EDT Venkatesh Stephen MD LAB BLOOD ORDERABLES Final Resul t Performing Organization Address [facility] de Phone Number [facility] [address] [phone] * (ABNORMAL) Hepatic function panel (12/13/2024 3:15 AM EDT) Protein, Total 5.7(L) 6.4 - 8.3 g/dL 12/13/2024 4:13 AM EDT [facility] Albumin 3.1(L) 3.5 - 5.0 g/dL 12/13/2024 4:13 AM EDT [facility] Total Bilirubin 0.8 0.2 - 1.2 mg/dL 12/13/2024 4:13 AM EDT [facility] Bilirubin, Direct 0.4 0.0 - 0.5 mg/dL 12/13/2024 4:13 AM EDT [facility] Alkaline Phosphatase 53 40 - 150 U/L 12/13/2024 4:13 AM EDT [facility] Globulin 2.6 2.5 - 4.1 g/dL 12/13/2024 4:13 AM EDT [facility] A/G Ratio 1.2 0.7 - 1.9 12/13/2024 4:13 AM EDT [facility] AST 42(H) 11 - 34 U/L 12/13/2024 4:13 AM EDT [facility] Comment: AST2 reagent used for testing does not contain P5P supplementation and therefore may miss AST elevations in patients with B6 deficiency. This population may be as high as 10% in the [place], with risk factors including malabsorption, drug interactions, and alcoholic hepatitis. ALT 16 <=34 U/L 12/13/2024 4:13 AM EDT [facility] Comment: ALT2 reagent used [...] ORDERABLES Final Resu lt Performing Organization Address City/State/[facility] Co de Phone Number [facility] [address] [phone] * (ABNORMAL) CBC with automated diff (12/13/2024 3:15 AM EDT) WBC 1.4(LL) 4.0 - 10.0 K/ L 12/13/2024 3:40 AM EDT [facility] RBC 2.42(L) 3.93 - 5.22 M/ L 12/13/2024 3:40 AM EDT [facility] Hemoglobin 7.4(L) 11.2 - 15.7 GM/DL 12/13/2024 3:40 AM EDT [facility] Hematocrit 23.4(L) 34.1 - 44.9 % 12/13/2024 3:40 AM EDT [facility] MCV 97(H) 79 - 95 fL 12/13/2024 3:40 AM EDT [facility] MCH 30.6 25.6 - 32.2 pg 12/13/2024 3:40 AM EDT [facility] MCHC 31.6(L) 32.2 - 35.5 GM/DL 12/13/2024 3:40 AM EDT [facility] RDW 16.4(H) 11.7 - 14.4 % 12/13/2024 3:40 AM EDT [facility] Platelets 52(L) 140 - 375 K/CU MM 12/13/2024 3:40 AM EDT [facility] MPV 12.1 9.4 - 12.3 fL 12/13/2024 3:40 AM EDT [facility] % Neutros 56 34 - 71 % 12/13/2024 3:40 AM EDT [facility] % Lymphs 28 19 - 52 % 12/13/2024 3:40 AM EDT [facility] % Monos 15(H) 5 - 13 % 12/13/2024 3:40 AM EDT [facility] % Eos 0(L) 1 - 6 % 12/13/2024 3:40 AM EDT [facility] % Baso 1 0 - 1 % 12/13/2024 3:40 AM EDT [facility] NRBC Absolute <0.01 0 - 0.012 K/ul 12/13/2024 3:40 AM EDT [facility] # Neutros 0.80(L) 1.56 - 6.13 K/ L 12/13/2024 3:40 AM EDT [facility] # Lymphs 0.40(L) 1.18 - 3.74 K/ L 12/13/2024 3:40 AM EDT [facility] # Monos 0.21(L) 0.24 - 0.86 K/ L 12/13/2024 3:40 AM EDT [facility] # Eos <0.03(L) 0.04 - 0.36 K/ L 12/13/2024 3:40 AM EDT [facility] # Baso <0.03 0.01 - 0.08 K/ L 12/13/2024 3:40 AM EDT [facility] Immature Granulocytes-Re lative 0.00(L) 0.01 - 0.43 % 12/13/2024 3:40 AM EDT [facility] # IG <0.03 0.00 - 0.03 K/uL 12/13/2024 3:40 AM EDT [facility] Blood Venipuncture / Unknown 12/13/2024 3:15 AM EDT 12/13/2024 3:27 AM EDT Narrative [facility] - 12/13/2024 3:40 AM [...] MD LAB BLOOD ORDERABLES Final Resul t [facility] [address] [phone] * (ABNORMAL) Basic Metabolic Panel (12/13/2024 3:15 AM EDT) Sodium 147(H) 136 - 145 meq/L 12/13/2024 4:13 AM EDT [facility] Potassium 3.5 3.4 - 5.1 meq/L 12/13/2024 4:13 AM EDT [facility] CO2 27 22 - 29 meq/L 12/13/2024 4:13 AM EDT [facility] Chloride 110 98 - 112 meq/L 12/13/2024 4:13 AM EDT [facility] Glucose 135(H) 82 - 115 mg/dL 12/13/2024 4:13 AM EDT [facility] BUN 71.9(H) 9.8 - 20.1 mg/dL 12/13/2024 4:13 AM EDT [facility] Creatinine 2.29(H) 0.57 - 1.11 mg/dL 12/13/2024 4:13 AM EDT [facility] BUN/Creatinine 31(H) 8 - 20 12/13/2024 4:13 AM EDT [facility] Calcium 8.5 8.4 - 10.2 mg/dL 12/13/2024 4:13 AM EDT [facility] Anion Gap 14(H) 4 - 12 12/13/2024 4:13 AM EDT [facility] eGFR (mL/min/1.73m2) 24(L) >=60 mL/min/1.7 3m2 12/13/2024 4:13 AM EDT [facility] Osmolality Calc 315.6 mOsm/kg 4:13 AM EDT [facility] Blood Venipuncture / Unknown 12/13/2024 3:15 AM EDT 12/13/2024 3:39 AM EDT us Venkatesh Stephen MD LAB BLOOD ORDERABLES Final Resul t [facility] [address] [phone] * (ABNORMAL) Glucose, Nova Meter (12/12/2024 8:01 PM EDT) POC-GLUCOSE 182(H) 70 - 110 mg/dL 12/12/2024 8:02 PM EDT [facility] Comment: In the event of poor peripheral blood flow, venous or arterial blood should be used due to the potential of erroneous results. Protocols Followed Notified Nurse RBV Bankruptcy Processor [id number] 12/12/2024 8:02 PM EDT [facility] Blood WHOLE BLOOD / Unknown 12/12/2024 8:01 PM EDT 12/12/2024 8:02 PM EDT Narrative [facility] - 12/12/2024 8:02 PM EDT Bankruptcy Processor ID is - [id number] [facility] Andry [place] PA-C POINT OF CARE TEST ORDERABLES Final Result Performing Organization Address [facility] de Phone Number [facility] [address] [place] [address], [facility] [phone] * (ABNORMAL) Glucose, Nova Meter (12/12/2024 3:51 PM EDT) POC-GLUCOSE 163(H) 70 - 110 mg/dL 12/12/2024 3:52 PM EDT [facility] Comment: In the event of poor peripheral blood flow, venous or arterial blood should be used due to the potential of erroneous results. Notified Nurse RBV Bankruptcy Processor [id number] 12/12/2024 3:52 PM EDT [facility] Blood WHOLE BLOOD / Unknown 12/12/2024 3:51 PM EDT 12/12/2024 3:52 PM EDT [facility] - 12/12/2024 3:52 PM EDT Bankruptcy Processor ID is - [id number] [facility] Andry Meghna PA-C POINT OF CARE TEST ORDERABLES Final Result Performing Organization Address [facility] Co de Phone Number [facility] [address] [phone] * (ABNORMAL) Glucose, Nova Meter (12/12/2024 10:31 AM EDT) POC-GLUCOSE 221(H) 70 - 110 mg/dL 12/12/2024 10:32 AM EDT [facility] Comment: In the event of poor peripheral blood flow, venous or arterial blood should be used due to the potential of erroneous results. Notified Nurse RBV Bankruptcy Processor [id number] 12/12/2024 10:32 AM EDT [facility] Blood WHOLE BLOOD / Unknown 12/12/2024 10:31 AM EDT 12/12/2024 10:32 AM EDT [facility] - 12/12/2024 10:32 AM EDT Bankruptcy Processor ID is - [id number] David Coffman PA-C POINT OF CARE TEST ORDERABLES Final Result Performing Organization Address [facility]/ZIP Co de Phone Number [facility] [address] [phone] * ECG 12 lead (12/12/2024 9:22 AM EDT) VENTRICULAR RATE EKG/MIN 87 BPM GE MUSE ATRIAL RATE (MCT) 87 BPM GE MUSE MI Interval 140 ms GE MUSE QRS-INTERVAL (MSEC) 90 ms GE MUSE QT Interval 414 ms GE MUSE QTC Interval 498 ms GE MUSE P [place] 26 degrees GE MUSE R AXIS (MCT) -17 degrees GE MUSE T Wave [place] 24 degrees GE MUSE Cisne Diagnosis Normal sinus rhythm Leftward axis When compared with ECG of 11-DEC-2024 10:29, No significant change was found Confirmed by Aleksandr ROBIN STEVE ([id number]) on 12/12/2024 11:05:42 PM GE MUSE 12/12/2024 9:22 AM EDT 12/12/2024 11:05 PM EDT Deysi Foss MD ECG ORDERABLES Final Result Performing Organization Address [facility] Co de Phone Number [employer] MUSE * (ABNORMAL) Glucose, Nova Meter (12/12/2024 5:43 AM EDT) POC-GLUCOSE 149(H) 70 - 110 mg/dL 12/12/2024 5:44 AM EDT [facility] Comment: In the event of poor peripheral blood flow, venous or arterial blood should be used due to the potential of erroneous results. Notified Nurse RBV Bankruptcy Processor [id number] 12/12/2024 5:44 AM EDT [facility] Blood WHOLE BLOOD / Unknown 12/12/2024 5:43 AM EDT 12/12/2024 5:44 AM EDT Narrative [facility] - 12/12/2024 5:44 AM EDT Bankruptcy Processor ID is - [id number] David Coffman PA-C POINT OF CARE TEST ORDERABLES Final Result Performing Organization Address [facility]/ZIP Co de Phone Number [facility] [address] [phone] * (ABNORMAL) CBC Scan (12/12/2024 3:47 AM EDT) Pathologist [facility] Platelet Estimate Decreased (A) Adequate 12/12/2024 6:07 AM EDT [facility] RBC Morphology abnormal( A) Normal 12/12/2024 6:07 AM EDT [facility] Anisocytosis 1+ 12/12/2024 6:07 AM EDT [facility] Hypochromia 1+ 12/12/2024 6:07 AM EDT [facility] Macrocytes 1+ 12/12/2024 6:07 AM EDT [facility] Ovalocytes 1+ 12/12/2024 6:07 AM EDT [facility] Poikilocytes 1+ 12/12/2024 6:07 AM EDT [facility] Blood Venipuncture / Unknown 12/12/2024 3:47 AM EDT 12/12/2024 4:40 AM EDT us Venkatesh Stephen MD LAB BLOOD ORDERABLES Final Resul t Performing Organization Address [facility]/ZIP Co de Phone Number [facility] [address] [phone] * (ABNORMAL) CBC with automated diff (12/12/2024 3:47 AM EDT) Pathologist [facility] WBC 1.4(LL) 4.0 - 10.0 K/ L 12/12/2024 6:07 AM EDT [facility] RBC 2.39(L) 3.93 - 5.22 M/ L 12/12/2024 6:07 AM EDT [facility] Hemoglobin 7.3(L) 11.2 - 15.7 GM/DL 12/12/2024 6:07 AM EDT [facility] Hematocrit 23.2(L) 34.1 - 44.9 % 12/12/2024 6:07 AM EDT [facility] MCV 97(H) 79 - 95 fL 12/12/2024 6:07 AM EDT [facility] MCH 30.5 25.6 - 32.2 pg 12/12/2024 6:07 AM EDT [facility] MCHC 31.5(L) 32.2 - 35.5 GM/DL 12/12/2024 6:07 AM EDT [facility] RDW 16.7(H) 11.7 - 14.4 % 12/12/2024 6:07 AM EDT [facility] Platelets 43(L) 140 - 375 K/CU MM 12/12/2024 6:07 AM EDT [facility] MPV 11.8 9.4 - 12.3 fL 12/12/2024 6:07 AM EDT [facility] % Neutros 57 34 - 71 % 12/12/2024 6:07 AM EDT [facility] % Lymphs 29 19 - 52 % 12/12/2024 6:07 AM EDT [facility] % Monos 13 5 - 13 % 12/12/2024 6:07 AM EDT [facility] % Eos 1 1 - 6 % 12/12/2024 6:07 AM EDT [facility] % Baso 0 0 - 1 % 12/12/2024 6:07 AM EDT [facility] NRBC Absolute <0.01 0 - 0.012 K/ul 12/12/2024 6:07 AM EDT [facility] # Neutros 0.80(L) 1.56 - 6.13 K/ L 12/12/2024 6:07 AM EDT [facility] # Lymphs 0.41(L) 1.18 - 3.74 K/ L 12/12/2024 6:07 AM EDT [facility] # Monos 0.18(L) 0.24 - 0.86 K/ L 12/12/2024 6:07 AM EDT [facility] # Eos <0.03(L) 0.04 - 0.36 K/ L 12/12/2024 6:07 AM EDT [facility] # Baso <0.03 0.01 - 0.08 K/ L 12/12/2024 6:07 AM EDT [facility] Immature Granulocytes-Re lative 0.70(H) 0.01 - 0.43 % 12/12/2024 6:07 AM EDT [facility] # IG <0.03 0.00 - 0.03 K/uL 12/12/2024 6:07 AM EDT [facility] Blood Venipuncture / Unknown 12/12/2024 3:47 AM EDT 12/12/2024 4:40 AM EDT Narrative [facility] - 12/12/2024 6:07 AM [...] MD LAB BLOOD ORDERABLES Final Resul t [facility] [address] [phone] * (ABNORMAL) Basic Metabolic Panel (12/12/2024 3:47 AM EDT) Sodium 144 136 - 145 meq/L 12/12/2024 5:16 AM EDT [facility] Potassium 3.4 3.4 - 5.1 meq/L 12/12/2024 5:16 AM EDT [facility] CO2 26 22 - 29 meq/L 12/12/2024 5:16 AM EDT [facility] Chloride 110 98 - 112 meq/L 12/12/2024 5:16 AM EDT [facility] Glucose 140(H) 82 - 115 mg/dL 12/12/2024 5:16 AM EDT [facility] BUN 70.7(H) 9.8 - 20.1 mg/dL 12/12/2024 5:16 AM EDT [facility] Creatinine 2.28(H) 0.57 - 1.11 mg/dL 12/12/2024 5:16 AM EDT [facility] BUN/Creatinine 31(H) 8 - 20 12/12/2024 5:16 AM EDT [facility] Calcium 8.3(L) 8.4 - 10.2 mg/dL 12/12/2024 5:16 AM EDT [facility] Anion Gap 11 4 - 12 12/12/2024 5:16 AM EDT [facility] eGFR (mL/min/1.73m2) 24(L) >=60 mL/min/1.7 3m2 12/12/2024 5:16 AM EDT [facility] Osmolality Calc 309.9 mOsm/kg 5:16 AM EDT [facility] Blood Venipuncture / Unknown 12/12/2024 3:47 AM EDT 12/12/2024 4:41 AM EDT Venkatesh Stephen MD LAB BLOOD ORDERABLES Final Resul t Performing Organization Address [facility] Co de Phone Number [facility] [address] [phone] * (ABNORMAL) Glucose, Nova Meter (12/11/2024 7:32 PM EDT) [facility] Signature POC-GLUCOSE 159(H) 70 - 110 mg/dL 12/11/2024 7:33 PM EDT [facility] Comment: In the event of poor peripheral blood flow, venous or arterial blood should be used due to the potential of erroneous results. Notified Nurse RBV Bankruptcy Processor [id number] 12/11/2024 7:33 PM EDT [facility] Blood WHOLE BLOOD / Unknown 12/11/2024 7:32 PM EDT 12/11/2024 7:33 PM EDT Narrative [facility] - 12/11/2024 7:33 PM EDT Bankruptcy Processor ID is - [id number] us David Coffman PA-C POINT OF CARE TEST ORDERABLES Final Result Performing Organization Address City/[facility] Co de Phone Number [facility] [address] [phone] * (ABNORMAL) Glucose, Nova Meter (12/11/2024 4:18 PM EDT) POC-GLUCOSE 156(H) 70 - 110 mg/dL 12/11/2024 4:19 PM EDT [facility] Comment: In the event of poor peripheral blood flow, venous or arterial blood should be used due to the potential of erroneous results. Notified Nurse RBV Bankruptcy Processor [id number] 12/11/2024 4:19 PM EDT [facility] Blood WHOLE BLOOD / Unknown 12/11/2024 4:18 PM EDT 12/11/2024 4:19 PM EDT [facility] - 12/11/2024 4:19 PM EDT Bankruptcy Processor ID is - [id number] David VALDIVIA-C POINT OF CARE TEST ORDERABLES Final Result Performing Organization Address [facility] de Phone Number [facility] [address] [phone] * (ABNORMAL) Glucose, Nova Meter (12/11/2024 10:43 AM EDT) [facility] POC-GLUCOSE 254(H) 70 - 110 mg/dL 12/11/2024 10:45 AM EDT [facility] Comment: In the event of poor peripheral blood flow, venous or arterial blood should be used due to the potential of erroneous results. Notified Nurse RBV Bankruptcy Processor [id number] 12/11/2024 10:45 AM EDT [facility] Blood WHOLE BLOOD / Unknown 12/11/2024 10:43 AM EDT 12/11/2024 10:45 AM EDT [facility] - 12/11/2024 10:45 AM EDT Bankruptcy Processor ID is - [id number] David Coffman PA-C POINT OF CARE TEST ORDERABLES Final Result Performing Organization Address [facility] Co de Phone Number [facility] [address] [phone] * ECG 12 lead (12/11/2024 10:29 AM EDT) Pathologist [facility] VENTRICULAR RATE EKG/MIN 85 BPM GE MUSE ATRIAL RATE (MCT) 85 BPM GE MUSE MI Interval 142 ms GE MUSE QRS-INTERVAL (MSEC) 92 ms GE MUSE QT Interval 400 ms GE MUSE QTC Interval 476 ms GE MUSE P [place] 34 degrees GE MUSE R AXIS (MCT) -10 degrees GE MUSE T Wave [place] 57 degrees GE MUSE Cisne Diagnosis Normal sinus rhythm Minimal voltage criteria [...] Glucose, Nova Meter (12/11/2024 5:15 AM EDT) [facility] POC-GLUCOSE 143(H) 70 - 110 mg/dL 12/11/2024 5:16 AM EDT [facility] Comment: In the event of poor peripheral blood flow, venous or arterial blood should be used due to the potential of erroneous results. Notified Nurse RBV Bankruptcy Processor [id number] 12/11/2024 5:16 AM EDT [facility] Blood WHOLE BLOOD / Unknown 12/11/2024 5:15 AM EDT 12/11/2024 5:16 AM EDT Narrative [facility] - 12/11/2024 5:16 AM EDT Bankruptcy Processor ID is - [id number] us Venkatesh Stephen MD POINT OF CARE TEST ORDERABLES Fi nal Result [facility] [address] [place], [place] [address] [phone] * (ABNORMAL) Basic Metabolic Panel (12/11/2024 3:39 AM EDT) Sodium 146(H) 136 - 145 meq/L 12/11/2024 4:25 AM EDT [facility] Potassium 3.7 3.4 - 5.1 meq/L 12/11/2024 4:25 AM EDT [facility] CO2 26 22 - 29 meq/L 12/11/2024 4:25 AM EDT [facility] Chloride 114(H) 98 - 112 meq/L 12/11/2024 4:25 AM EDT [facility] Glucose 154(H) 82 - 115 mg/dL 12/11/2024 4:25 AM EDT [facility] BUN 74.9(H) 9.8 - 20.1 mg/dL 12/11/2024 4:25 AM EDT [facility] Creatinine 2.61(H) 0.57 - 1.11 mg/dL 12/11/2024 4:25 AM EDT [facility] BUN/Creatinine 29(H) 8 - 20 12/11/2024 4:25 AM EDT [facility] Calcium 8.2(L) 8.4 - 10.2 mg/dL 12/11/2024 4:25 AM EDT [facility] Anion Gap 10 4 - 12 12/11/2024 4:25 AM EDT [facility] eGFR (mL/min/1.73m2) 20(L) >=60 mL/min/1.7 3m2 12/11/2024 4:25 AM EDT [facility] Osmolality Calc 315.9 mOsm/kg 4:25 AM EDT [facility] Blood Venipuncture / Unknown 12/11/2024 3:39 AM EDT 12/11/2024 3:59 AM EDT us Venkatesh Stephen MD LAB BLOOD ORDERABLES Final Resul t [facility] [address] [phone] * (ABNORMAL) CBC with automated diff (12/11/2024 3:36 AM EDT) WBC 1.7(LL) 4.0 - 10.0 K/ L 12/11/2024 4:19 AM EDT [facility] RBC 2.50(L) 3.93 - 5.22 M/ L 12/11/2024 4:19 AM EDT [facility] Hemoglobin 7.7(L) 11.2 - 15.7 GM/DL 12/11/2024 4:19 AM EDT [facility] Hematocrit 24.4(L) 34.1 - 44.9 % 12/11/2024 4:19 AM EDT [facility] MCV 98(H) 79 - 95 fL 12/11/2024 4:19 AM EDT [facility] MCH 30.8 25.6 - 32.2 pg 12/11/2024 4:19 AM EDT [facility] MCHC 31.6(L) 32.2 - 35.5 GM/DL 12/11/2024 4:19 AM EDT [facility] RDW 16.9(H) 11.7 - 14.4 % 12/11/2024 4:19 AM EDT [facility] Platelets 50(L) 140 - 375 K/CU MM 12/11/2024 4:19 AM EDT [facility] MPV 11.7 9.4 - 12.3 fL 12/11/2024 4:19 AM EDT [facility] % Neutros 58 34 - 71 % 12/11/2024 4:19 AM EDT [facility] % Lymphs 27 19 - 52 % 12/11/2024 4:19 AM EDT [facility] % Monos 15(H) 5 - 13 % 12/11/2024 4:19 AM EDT [facility] % Eos 0(L) 1 - 6 % 12/11/2024 4:19 AM EDT [facility] % Baso 1 0 - 1 % 12/11/2024 4:19 AM EDT [facility] NRBC Absolute <0.01 0 - 0.012 K/ul 12/11/2024 4:19 AM EDT [facility] # Neutros 1.00(L) 1.56 - 6.13 K/ L 12/11/2024 4:19 AM EDT [facility] # Lymphs 0.46(L) 1.18 - 3.74 K/ L 12/11/2024 4:19 AM EDT [facility] # Monos 0.26 0.24 - 0.86 K/ L 12/11/2024 4:19 AM EDT [facility] # Eos <0.03(L) 0.04 - 0.36 K/ L 12/11/2024 4:19 AM EDT [facility] # Baso <0.03 0.01 - 0.08 K/ L 12/11/2024 4:19 AM EDT [facility] Immature Granulocytes-Re lative 0.00(L) 0.01 - 0.43 % 12/11/2024 4:19 AM EDT [facility] # IG <0.03 0.00 - 0.03 K/uL 12/11/2024 4:19 AM EDT [facility] Blood Venipuncture / Unknown 12/11/2024 3:36 AM EDT 12/11/2024 3:59 AM EDT Narrative [facility] - 12/11/2024 4:19 AM [...] MD LAB BLOOD ORDERABLES Final Resul t [facility] [address] [place], [place] [address] [phone] * (ABNORMAL) Glucose, Nova Meter (12/10/2024 7:38 PM EDT) POC-GLUCOSE 201(H) 70 - 110 mg/dL 12/10/2024 7:39 PM EDT [facility] Comment: In the event of poor peripheral blood flow, venous or arterial blood should be used due to the potential of erroneous results. Notified Nurse RBV Bankruptcy Processor [id number] 12/10/2024 7:39 PM EDT [facility] Blood WHOLE BLOOD / Unknown 12/10/2024 7:38 PM EDT 12/10/2024 7:39 PM EDT Narrative [facility] - 12/10/2024 7:39 PM EDT Bankruptcy Processor ID is - [id number] Venkatesh Stephen MD POINT OF CARE TEST ORDERABLES Fi nal Result Performing Organization Address [facility] de [facility] Number [facility] [address] [phone] * (ABNORMAL) Glucose, Nova Meter (12/10/2024 6:32 PM EDT) POC-GLUCOSE 235(H) 70 - 110 mg/dL 12/10/2024 6:34 PM EDT [facility] Comment: In the event of poor peripheral blood flow, venous or arterial blood should be used due to the potential of erroneous results. Notified Nurse RBV Bankruptcy Processor [id number] 12/10/2024 6:34 PM EDT [facility] Blood WHOLE BLOOD / Unknown 12/10/2024 6:32 PM EDT 12/10/2024 6:34 PM EDT Narrative [facility] - 12/10/2024 6:34 PM EDT Bankruptcy Processor ID is - [id number] us Venkatesh Stephen MD POINT OF CARE TEST ORDERABLES Fi nal Result Performing Organization Address [facility] Co de Phone Number [facility] [address] [phone] * (ABNORMAL) Glucose, Nova Meter (12/10/2024 4:56 PM EDT) POC-GLUCOSE 195(H) 70 - 110 mg/dL 12/10/2024 4:58 PM EDT [facility] Comment: In the event of poor peripheral blood flow, venous or arterial blood should be used due to the potential of erroneous results. Notified Nurse RBV Bankruptcy Processor [id number] 12/10/2024 4:58 PM EDT [facility] Blood WHOLE BLOOD / Unknown 12/10/2024 4:56 PM EDT 12/10/2024 4:58 PM EDT Narrative [facility] - 12/10/2024 4:58 PM EDT Bankruptcy Processor ID is - [id number] us Venkatesh Stephen MD POINT OF CARE TEST ORDERABLES Fi nal Result Performing Organization Address City/State/[facility] Co de Phone Number [facility] [address] [phone] * US paracentesis (12/10/2024 11:37 AM EDT) [...] Ascites. ATTENDING PHYSICIAN: Dr. Haseeb Gil PHYSICIAN INTERNET SECURITY SPECIALIST: Sujit Blackman PA-C FINDINGS: After informed consent [...] Ascites. ATTENDING PHYSICIAN: Dr. Haseeb Gil PHYSICIAN INTERNET SECURITY SPECIALIST: Sujit Blackman PA-C FINDINGS: After informed consent [...] QTC Interval 484 ms GE MUSE P [place] 31 degrees GE MUSE R AXIS (MCT) -10 degrees GE MUSE T Wave [place] 37 degrees GE MUSE Cisne Diagnosis Normal sinus rhythm Leftward axis Abnormal ECG When compared with ECG of 09-DEC-2024 12:33, No significant change was found Confirmed by Aleksandr ROBIN STEVE ([id number]) on 12/12/2024 1:22:56 AM GE MUSE 12/10/2024 10:0 7 AM EDT 12/12/2024 1:22 AM EDT us Desyi Foss MD ECG ORDERABLES Final Result GE MUSE * Magnesium (12/10/2024 9:53 AM EDT) Magnesium 2.3 1.6 - 2.6 mg/dL 12/10/2024 11:02 AM EDT [facility] Blood Venipuncture / Unknown 12/10/2024 9:53 AM EDT 12/10/2024 10:39 AM EDT Deysi Foss MD LAB BLOOD ORDERABLES Final Resul t Performing Organization Address [facility] Phone Number [facility] [address] [phone] * ALT (SGPT) (12/10/2024 9:53 AM EDT) ALT 12 <=34 U/L 12/10/2024 11:02 AM EDT [facility] Comment: ALT2 reagent used [...] ORDERABLES Final Resul t Performing Organization Address [facility] Phone Number [facility] [address] [phone] * (ABNORMAL) AST (SGOT) (12/10/2024 9:53 AM EDT) AST 39(H) 11 - 34 U/L 12/10/2024 11:02 AM EDT [facility] Comment: AST2 reagent used for testing does not contain P5P supplementation and therefore may miss AST elevations in patients with B6 deficiency. This population may be as high as 10% in the [place], with risk factors including malabsorption, drug interactions, and alcoholic hepatitis. Particle has become aware of sulfasalazine and sulfapyridine [...] MD LAB BLOOD ORDERABLES Final Resul t [facility] [address] [phone] * XR chest AP portable (12/10/2024 9:10 [...] 7.35 - 7.45 12/10/2024 6:51 AM EDT [facility] pCO2, Arterial 49(H) 35 - 45 mm Hg 12/10/2024 6:51 AM EDT [facility] pO2, Arterial 119(H) 80 - 100 mm Hg 12/10/2024 6:51 AM EDT [facility] HCO3, Arterial 24 20 - 26 mmol/L 12/10/2024 6:51 AM EDT [facility] Base Excess, Arterial -2.4(L) -2.0 - 2.0 mmol/L 12/10/2024 6:51 AM EDT [facility] O2 Sat, Arterial >99.2 95.0 - 100.0 % 12/10/2024 6:51 AM EDT [facility] Comment:notified at read-anny k verification CTO2 ARTERIAL 11.9 mmol/L 12/10/2024 6:51 AM T [facility] THB ARTERIAL 8.5(L) 12.0 - 18.0 g/dL 12/10/2024 6:51 AM T [facility] SJ COLLECTION SITE Left Radial 12/10/2024 6:51 AM T [facility] Arterial Puncture Yes 12/10/2024 6:51 AM T [facility] Blood Gas O2 Delivery Device Cannula 12/10/2024 6:51 AM [facility] Oxygen Flow Rate 4 12/11/19 6:51 AM [facility] Blood Gas PT Temperature C 37.0 12/10/2024 6:51 AM [facility] Sen's Test Acceptable 12/10/2024 6:51 AM T [facility] ABG Number of Draw Attempts 1 12/[facility] 12/10/2024 6:51 AM EDT [facility] Blood Gas Temperature Corrected Results No No 12/10/2024 6:51 AM EDT [facility] Blood, Arterial Collection / Unknown 12/10/2024 6:42 AM EDT 12/10/2024 6:51 AM EDT us Blanka Malagon MD LAB BLOOD ORDERABLES Final Re sult Performing Organization Address City/[facility]/ZIP Co de Phone Number [facility] [address] [phone] * (ABNORMAL) Glucose, Nova Meter (12/10/2024 5:52 AM EDT) POC-GLUCOSE 162(H) 70 - 110 mg/dL 12/10/2024 5:53 AM EDT [facility] Comment: In the event of poor peripheral blood flow, venous or arterial blood should be used due to the potential of erroneous results. Notified Nurse [facility] Bankruptcy Processor [id number] 12/10/2024 5:53 AM EDT [facility] Blood WHOLE BLOOD / Unknown 12/10/2024 5:52 AM EDT 12/10/2024 5:53 AM EDT Narrative [facility] - 12/10/2024 5:53 AM EDT Bankruptcy Processor ID is - [id number] us Mary Carmen Mcfadden MD POINT OF CARE TEST ORDERABLES F inal Result Performing Organization Address City/[facility]/ZIP Co de Phone Number [facility] [address] [phone] * (ABNORMAL) Glucose, Nova Meter (12/09/2024 7:30 PM EDT) POC-GLUCOSE 158(H) 70 - 110 mg/dL 12/09/2024 7:31 PM EDT [facility] Comment: In the event of poor peripheral blood flow, venous or arterial blood should be used due to the potential of erroneous results. Notified Nurse [facility] Bankruptcy Processor [id number] 12/09/2024 7:31 PM EDT [facility] Blood WHOLE BLOOD / Unknown 12/09/2024 7:30 PM EDT 12/09/2024 7:31 PM EDT Narrative [facility] - 12/09/2024 7:31 PM EDT Bankruptcy Processor ID is - [id number] Mary Carmen Mcfadden MD POINT OF CARE TEST ORDERABLES F inal Result Performing Organization Address City/[facility]/ZIP Co de Phone Number [facility] [address] [phone] * (ABNORMAL) Glucose, Nova Meter (12/09/2024 4:23 PM EDT) [facility] POC-GLUCOSE 173(H) 70 - 110 mg/dL 12/09/2024 4:24 PM EDT [facility] Comment: In the event of poor peripheral blood flow, venous or arterial blood should be used due to the potential of erroneous results. Notified Nurse RBV Bankruptcy Processor [id number] 12/09/2024 4:24 PM EDT [facility] Blood WHOLE BLOOD / Unknown 12/09/2024 4:23 PM EDT 12/09/2024 4:24 PM EDT [facility] - 12/09/2024 4:24 PM EDT Bankruptcy Processor ID is - [id number] Mary Carmen Mcfadden MD POINT OF CARE TEST ORDERABLES F inal Result Performing Organization Address City/[facility] Co de Phone Number [facility] [address] [phone] * ECG 12 lead (12/09/2024 12:33 PM EDT) [facility] VENTRICULAR RATE EKG/MIN 91 BPM GE MUSE ATRIAL RATE (MCT) 91 BPM GE MUSE MI Interval 140 ms GE MUSE QRS-INTERVAL (MSEC) 88 ms GE MUSE QT Interval 386 ms GE MUSE QTC Interval 474 ms GE MUSE P [place] 44 degrees GE MUSE R AXIS (MCT) -3 degrees GE MUSE T Wave [place] 16 degrees GE MUSE Cisne Diagnosis Normal sinus rhythm Minimal voltage criteria for LVH, may be normal variant Septal infarct (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 ([id number]) on 12/09/2024 6:05:19 PM GE MUSE 12/09/2024 12:3 3 PM EDT 12/09/2024 6:05 PM EDT us Deysi Foss MD ECG ORDERABLES Final Result Performing Organization Address [facility] Co de Phone Number GE MUSE * (ABNORMAL) Glucose, Nova Meter (12/09/2024 11:17 AM EDT) POC-GLUCOSE 173(H) 70 - 110 mg/dL 12/09/2024 11:18 AM EDT [facility] Comment: In the event of poor peripheral blood flow, venous or arterial blood should be used due to the potential of erroneous results. Notified Nurse RBV Bankruptcy Processor [id number] 12/09/2024 11:18 AM EDT [facility] Blood WHOLE BLOOD / Unknown 12/09/2024 11:17 AM EDT 12/09/2024 11:18 AM EDT Narrative [facility] - 12/09/2024 11:18 AM EDT Bankruptcy Processor ID is - [id number] us Mary Carmen Mcfadden MD POINT OF CARE TEST ORDERABLES F inal Result Performing Organization Address [facility]/ZIP Co de Phone Number [facility] [address] [phone] * XR chest AP portable (12/09/2024 7:09 [...] 7.35 - 7.45 12/09/2024 6:52 AM EDT [facility] pCO2, Arterial 51(H) 35 - 45 mm Hg 12/09/2024 6:52 AM EDT [facility] pO2, Arterial 157(H) 80 - 100 mm Hg 12/09/2024 6:52 AM EDT [facility] HCO3, Arterial 24 20 - 26 mmol/L 12/09/2024 6:52 AM EDT [facility] Base Excess, Arterial -2.6(L) -2.0 - 2.0 mmol/L 12/09/2024 6:52 AM EDT [facility] O2 Sat, Arterial >99.2 95.0 - 100.0 % 12/09/2024 6:52 AM EDT [facility] Comment:[id number] notified PAULINO COFFMAN RN at 12/09/2024 06:51 read-back verification CTO2 ARTERIAL 12.3 mmol/L 12/09/2024 6:52 AM EDT [facility] THB ARTERIAL 8.7(L) 12.0 - 18.0 g/dL 12/09/2024 6:52 AM EDT [facility] SJH COLLECTION SITE Left Radial 12/09/2024 6:52 AM EDT [facility] Arterial Puncture Yes 12/09/2024 6:52 AM EDT [facility] Blood Gas O2 Delivery Device Cannula 12/09/2024 6:52 AM EDT [facility] Oxygen Flow Rate 4 12/10/19 6:52 AM EDT [facility] Blood Gas PT Temperature C 37.0 12/09/2024 6:52 AM EDT [facility] Sen's Test Acceptable 12/09/2024 6:52 AM EDT [facility] Critical Values Notification Critical Blood gas called to DAYANARA MILES . [place] [id number] and confirmed on 12/09/2024 06:51 12/09/2024 6:52 AM EDT [facility] ABG Number of Draw Attempts 1 12/09/2024 6:52 AM EDT [facility] FIO2 12/09/2024 6:52 AM EDT [facility] Blood Gas Temperature Corrected Results No No 12/09/2024 6:52 AM EDT [facility] Blood, Arterial ENTIRE LEFT UPPER ARM / Unknown 12/09/2024 6:37 AM EDT 12/09/2024 6:52 AM EDT us Blanka Malagon MD LAB BLOOD ORDERABLES Final Re sult [facility] [address] [place] [address] * (ABNORMAL) Glucose, Nova Meter (12/09/2024 5:45 AM EDT) POC-GLUCOSE 148(H) 70 - 110 mg/dL 12/09/2024 5:46 AM EDT [facility] Comment: In the event of poor peripheral blood flow, venous or arterial blood should be used due to the potential of erroneous results. Notified Nurse RBV Bankruptcy Processor [id number] 12/09/2024 5:46 AM EDT [facility] Blood WHOLE BLOOD / Unknown 12/09/2024 5:45 AM EDT 12/09/2024 5:46 AM EDT Narrative [facility] - 12/09/2024 5:46 AM EDT Bankruptcy Processor ID is - [id number] us Mary Carmen Mcfadden MD POINT OF CARE TEST ORDERABLES F inal Result [facility] [address] [phone] * (ABNORMAL) CBC - Hemogram (SJ-BKR) (12/09/2024 3:38 AM EDT) WBC 2.4(L) 4.0 - 10.0 K/ L 12/09/2024 3:59 AM EDT [facility] RBC 2.83(L) 3.93 - 5.22 M/ L 12/09/2024 3:59 AM EDT [facility] Hemoglobin 8.5(L) 11.2 - 15.7 GM/DL 12/09/2024 3:59 AM EDT [facility] Hematocrit 28.0(L) 34.1 - 44.9 % 12/09/2024 3:59 AM EDT [facility] MCV 99(H) 79 - 95 fL 12/09/2024 3:59 AM EDT [facility] MCH 30.0 25.6 - 32.2 pg 12/09/2024 3:59 AM EDT [facility] MCHC 30.4(L) 32.2 - 35.5 GM/DL 12/09/2024 3:59 AM EDT [facility] RDW 17.2(H) 11.7 - 14.4 % 12/09/2024 3:59 AM EDT [facility] Platelets 55(L) 140 - 375 K/CU MM 12/09/2024 3:59 AM EDT [facility] MPV 11.5 9.4 - 12.3 fL 12/09/2024 3:59 AM EDT [facility] Blood Venipuncture / Unknown 12/09/2024 3:38 AM EDT 12/09/2024 3:45 AM EDT us Mary Carmen Mcfadden MD LAB BLOOD ORDERABLES Final Resu lt [facility] [address] [phone] * (ABNORMAL) Basic Metabolic Panel (12/09/2024 3:38 AM EDT) Sodium 148(H) 136 - 145 meq/L 12/09/2024 4:07 AM EDT [facility] Potassium 3.6 3.4 - 5.1 meq/L 12/09/2024 4:07 AM EDT [facility] CO2 23 22 - 29 meq/L 12/09/2024 4:07 AM EDT [facility] Chloride 116(H) 98 - 112 meq/L 12/09/2024 4:07 AM EDT [facility] Glucose 146(H) 82 - 115 mg/dL 12/09/2024 4:07 AM EDT [facility] BUN 77.3(H) 9.8 - 20.1 mg/dL 12/09/2024 4:07 AM EDT [facility] Creatinine 2.82(H) 0.57 - 1.11 mg/dL 12/09/2024 4:07 AM EDT [facility] BUN/Creatinine 27(H) 8 - 20 12/09/2024 4:07 AM EDT [facility] Calcium 8.7 8.4 - 10.2 mg/dL 12/09/2024 4:07 AM EDT [facility] Anion Gap 13(H) 4 - 12 12/09/2024 4:07 AM EDT [facility] eGFR (mL/min/1.73m2) 18(L) >=60 mL/min/1.7 3m2 12/09/2024 4:07 AM EDT [facility] Osmolality Calc 320.0 mOsm/kg 4:07 AM EDT [facility] Blood Venipuncture / Unknown 12/09/2024 3:38 AM EDT 12/09/2024 3:45 AM EDT Mary Carmen Mcfadden MD LAB BLOOD ORDERABLES Final Resu lt [facility] [address] [phone] * (ABNORMAL) Glucose, Nova Meter (12/08/2024 8:08 PM EDT) POC-GLUCOSE 172(H) 70 - 110 mg/dL 12/08/2024 8:08 PM EDT [facility] Comment: In the event of poor peripheral blood flow, venous or arterial blood should be used due to the potential of erroneous results. Notified Nurse RBV Bankruptcy Processor [id number] 12/08/2024 8:08 PM EDT [facility] Blood WHOLE BLOOD / Unknown 12/08/2024 8:08 PM EDT 12/08/2024 8:08 PM EDT Narrative [facility] - 12/08/2024 8:08 PM EDT Bankruptcy Processor ID is - [id number] Mary Carmen Mcfadden MD POINT OF CARE TEST ORDERABLES F inal Result [facility] [address] [phone] * (ABNORMAL) Glucose, Nova Meter (12/08/2024 3:34 PM EDT) POC-GLUCOSE 159(H) 70 - 110 mg/dL 12/08/2024 3:36 PM EDT [facility] Comment: In the event of poor peripheral blood flow, venous or arterial blood should be used due to the potential of erroneous results. Notified Nurse RBV Bankruptcy Processor [id number] 12/08/2024 3:36 PM EDT [facility] Blood WHOLE BLOOD / Unknown 12/08/2024 3:34 PM EDT 12/08/2024 3:36 PM EDT [facility] - 12/08/2024 3:36 PM EDT Bankruptcy Processor ID is - [id number] Mary Carmen Mcfadden MD POINT OF CARE TEST ORDERABLES F inal Result Performing Organization Address [facility]/ZIP Co de Phone Number [facility] [address] [phone] * (ABNORMAL) Glucose, Nova Meter (12/08/2024 10:57 AM EDT) [facility] POC-GLUCOSE 191(H) 70 - 110 mg/dL 12/08/2024 10:59 AM EDT [facility] Comment: In the event of poor peripheral blood flow, venous or arterial blood should be used due to the potential of erroneous results. Protocols Followed Notified Nurse RBV Bankruptcy Processor [id number] 12/08/2024 10:59 AM EDT [facility] Blood WHOLE BLOOD / Unknown 12/08/2024 10:57 AM EDT 12/08/2024 10:59 AM EDT [facility] - 12/08/2024 10:59 AM EDT Bankruptcy Processor ID is - [id number] Mary Carmen Mcfadden MD POINT OF CARE TEST ORDERABLES F inal Result Performing Organization Address [facility]/ZIP Co de Phone Number [facility] [address] [phone] * ECG 12 lead (12/08/2024 10:55 AM EDT) Pathologist [facility] VENTRICULAR RATE EKG/MIN 92 BPM GE MUSE ATRIAL RATE (MCT) 92 BPM GE MUSE MI Interval 138 ms GE MUSE QRS-INTERVAL (MSEC) 94 ms GE MUSE QT Interval 354 ms GE MUSE QTC Interval 437 ms GE MUSE P [place] 30 degrees GE MUSE R AXIS (MCT) -11 degrees GE MUSE T Wave [place] 37 degrees GE MUSE Cisne Diagnosis Normal sinus rhythm Minimal voltage criteria [...] 7.35 - 7.45 12/08/2024 7:31 AM EDT [facility] pCO2, Arterial 54(H) 35 - 45 mm Hg 12/08/2024 7:31 AM EDT [facility] pO2, Arterial 80 80 - 100 mm Hg 12/08/2024 7:31 AM EDT [facility] HCO3, Arterial 24 20 - 26 mmol/L 12/08/2024 7:31 AM EDT [facility] Base Excess, Arterial -2.9(L) -2.0 - 2.0 mmol/L 12/08/2024 7:31 AM EDT [facility] O2 Sat, Arterial 96.7 95.0 - 100.0 % 12/08/2024 7:31 AM EDT [facility] CTO2 ARTERIAL 11.8 mmol/L 12/08/2024 7:31 AM EDT [facility] THB ARTERIAL 8.8(L) 12.0 - 18.0 g/dL 12/08/2024 7:31 AM EDT [facility] SJ COLLECTION SITE Right Brachial 12/08/2024 7:31 AM EDT [facility] Arterial Puncture Yes 12/08/2024 7:31 AM EDT [facility] Blood Gas O2 Delivery Device Cannula 12/08/2024 7:31 AM EDT [facility] Oxygen Flow Rate 4 12/09/19 7:31 AM EDT [facility] Blood Gas PT Temperature C 37.0 12/08/2024 7:31 AM EDT [facility] Sen's Test Not Applicable 12/09/19 7:31 AM EDT [facility] Critical Values Notification Critical Blood gas called to KNOWN CONDITION . Results acknowledged/r ead back to [id number] and confirmed on 12/08/2024 07:30 12/08/2024 7:31 AM EDT [facility] ABG Number of Draw Attempts 1 12/08/2024 7:31 AM EDT [facility] FIO2 12/08/2024 7:31 AM EDT [facility] Blood Gas Temperature Corrected Results No No 12/08/2024 7:31 AM EDT [facility] Blood, Arterial 12/08/2024 7 :13 AM EDT 12/08/2024 7:31 AM EDT Mary Carmen Mcfadden MD LAB BLOOD ORDERABLES Final Resu lt Performing Organization Address City/State/[facility] Co de Phone Number [facility] [address] [phone] * (ABNORMAL) Glucose, Nova Meter (12/08/2024 6:08 AM EDT) [facility] POC-GLUCOSE 136(H) 70 - 110 mg/dL 12/08/2024 6:09 AM EDT [facility] Comment: In the event of poor peripheral blood flow, venous or arterial blood should be used due to the potential of erroneous results. Protocols Followed Notified Nurse RBV Bankruptcy Processor [id number] 12/08/2024 6:09 AM EDT [facility] Blood WHOLE BLOOD / Unknown 12/08/2024 6:08 AM EDT 12/08/2024 6:09 AM EDT Narrative [facility] - 12/08/2024 6:09 AM EDT Bankruptcy Processor ID is - [id number] us Mary Carmen Mcfadden MD POINT OF CARE TEST ORDERABLES F inal Result [facility] [address] [phone] * (ABNORMAL) CBC - Hemogram (SJ-BKR) (12/08/2024 4:10 AM EDT) WBC 3.1(L) 4.0 - 10.0 K/ L 12/08/2024 4:53 AM EDT [facility] RBC 2.84(L) 3.93 - 5.22 M/ L 12/08/2024 4:53 AM EDT [facility] Hemoglobin 8.7(L) 11.2 - 15.7 GM/DL 12/08/2024 4:53 AM EDT [facility] Hematocrit 28.2(L) 34.1 - 44.9 % 12/08/2024 4:53 AM EDT [facility] MCV 99(H) 79 - 95 fL 12/08/2024 4:53 AM EDT [facility] MCH 30.6 25.6 - 32.2 pg 12/08/2024 4:53 AM EDT [facility] MCHC 30.9(L) 32.2 - 35.5 GM/DL 12/08/2024 4:53 AM EDT [facility] RDW 17.4(H) 11.7 - 14.4 % 12/08/2024 4:53 AM EDT [facility] Platelets 54(L) 140 - 375 K/CU MM 12/08/2024 4:53 AM EDT [facility] MPV 11.2 9.4 - 12.3 fL 12/08/2024 4:53 AM EDT [facility] Blood Venipuncture / Unknown 12/08/2024 4:10 AM EDT 12/08/2024 4:37 AM EDT us Mary Carmen Mcfadden MD LAB BLOOD ORDERABLES Final Resu lt [facility] [address] [phone] * (ABNORMAL) Basic Metabolic Panel (12/08/2024 4:10 AM EDT) Sodium 149(H) 136 - 145 meq/L 12/08/2024 5:22 AM EDT [facility] Potassium 3.6 3.4 - 5.1 meq/L 12/08/2024 5:22 AM EDT [facility] CO2 23 22 - 29 meq/L 12/08/2024 5:22 AM EDT [facility] Chloride 116(H) 98 - 112 meq/L 12/08/2024 5:22 AM EDT [facility] Glucose 160(H) 82 - 115 mg/dL 12/08/2024 5:22 AM EDT [facility] BUN 76.4(H) 9.8 - 20.1 mg/dL 12/08/2024 5:22 AM EDT [facility] Creatinine 2.92(H) 0.57 - 1.11 mg/dL 12/08/2024 5:22 AM EDT [facility] BUN/Creatinine 26(H) 8 - 20 12/08/2024 5:22 AM EDT [facility] Calcium 8.7 8.4 - 10.2 mg/dL 12/08/2024 5:22 AM EDT [facility] Anion Gap 14(H) 4 - 12 12/08/2024 5:22 AM EDT [facility] eGFR (mL/min/1.73m2) 18(L) >=60 mL/min/1.7 3m2 12/08/2024 5:22 AM EDT [facility] Osmolality Calc 322.3 mOsm/kg 5:22 AM EDT [facility] Blood Venipuncture / Unknown 12/08/2024 4:10 AM EDT 12/08/2024 4:40 AM EDT us Mar yCarmen Mcfadden MD LAB BLOOD ORDERABLES Final Resu lt [facility] [address] [phone] * (ABNORMAL) Glucose, Nova Meter (12/07/2024 7:54 PM EDT) Pathologist [facility] POC-GLUCOSE 164(H) 70 - 110 mg/dL 12/07/2024 7:55 PM EDT [facility] Comment: In the event of poor peripheral blood flow, venous or arterial blood should be used due to the potential of erroneous results. Protocols Followed Notified Nurse RBV Bankruptcy Processor [id number] 12/07/2024 7:55 PM EDT [facility] Blood WHOLE BLOOD / Unknown 12/07/2024 7:54 PM EDT 12/07/2024 7:55 PM EDT Narrative [facility] - 12/07/2024 7:55 PM EDT Bankruptcy Processor ID is - [id number] us Mary Carmen Mcfadden MD POINT OF CARE TEST ORDERABLES F inal Result [facility] [address] [place] [address] * (ABNORMAL) ABG (12/07/2024 4:21 PM EDT) Pathologist [facility] pH, Arterial 7.29(L) 7.35 - 7.45 12/07/2024 4:43 PM EDT [facility] pCO2, Arterial 50(H) 35 - 45 mm Hg 12/07/2024 4:43 PM EDT [facility] pO2, Arterial 179(H) 80 - 100 mm Hg 12/07/2024 4:43 PM EDT [facility] HCO3, Arterial 24 20 - 26 mmol/L 12/07/2024 4:43 PM EDT [facility] Base Excess, Arterial -2.3(L) -2.0 - 2.0 mmol/L 12/07/2024 4:43 PM EDT [facility] O2 Sat, Arterial >100.0(H) 95.0 - 100.0 % 12/07/2024 4:43 PM EDT [facility] Comment:[id number] notified MORRIS LORENZ RN at 12/07/2024 16:42 read-back verification CTO2 ARTERIAL 12.0 mmol/L 12/07/2024 4:43 PM EDT [facility] THB ARTERIAL 8.4(L) 12.0 - 18.0 g/dL 12/07/2024 4:43 PM EDT [facility] PaO2/FIO2 calculated 359.0 12/07/2024 4:43 PM EDT [facility] S[facility] COLLECTION SITE Right Brachial 12/07/2024 4:43 PM EDT [facility] Arterial Puncture Yes 12/07/2024 4:43 PM EDT [facility] Blood Gas O2 Delivery Device NIV 12/07/2024 4:43 PM EDT [facility] Blood Gas PT Temperature C 37.0 12/07/2024 4:43 PM EDT [facility] Sen's Test Not Applicable 12/08/19 4:43 PM EDT [facility] Critical Values Notification Critical Blood gas called to SEB LORENZ RN . Results acknowledged/r ead back to [id number] and confirmed on 12/07/2024 16:42 12/07/2024 4:43 PM EDT [facility] ABG Number of Draw Attempts 2 12/07/2024 4:43 PM EDT [facility] Set Rate 16.0 12/07/2024 4:43 PM EDT [facility] IPAP 10 12/07/2024 4:43 PM EDT [facility] EPAP 6 12/07/2024 4:43 PM EDT [facility] FIO2 50.0 12/07/2024 4:43 PM EDT [facility] Blood Gas Temperature Corrected Results No No 12/07/2024 4:43 PM EDT [facility] Blood, Arterial 12/07/2024 4 :21 PM EDT 12/07/2024 4:43 PM EDT us Blanka Malagon MD LAB BLOOD ORDERABLES Final Re sult [facility] [address] [place] [address], [facility] [phone] * (ABNORMAL) Glucose, Nova Meter (12/07/2024 3:39 PM EDT) POC-GLUCOSE 159(H) 70 - 110 mg/dL 12/07/2024 3:41 PM EDT [facility] Comment: In the event of poor peripheral blood flow, venous or arterial blood should be used due to the potential of erroneous results. Notified Nurse RBV Bankruptcy Processor [id number] 12/07/2024 3:41 PM EDT [facility] Blood WHOLE BLOOD / Unknown 12/07/2024 3:39 PM EDT 12/07/2024 3:41 PM EDT Narrative [facility] - 12/07/2024 3:41 PM EDT Bankruptcy Processor ID is - [id number] us Mary Carmen Mcfadden MD POINT OF CARE TEST ORDERABLES F inal Result [facility] [address] [phone] * XR chest AP portable (12/07/2024 2:25 [...] by Dr. Lizzie Myles. Transcribed by Sandra Rmasey PA-C. us Mary Carmen Mcfadden MD IMG DIAGNOSTIC IMAGING ORDERABL ES Final Result * (ABNORMAL) Blood gas, arterial (12/07/2024 2:02 PM EDT) pH, Arterial 7.28(L) 7.35 - 7.45 12/07/2024 3:27 PM EDT [facility] pCO2, Arterial 50(H) 35 - 45 mm Hg 12/07/2024 3:27 PM EDT [facility] pO2, Arterial 58(L) 80 - 100 mm Hg 12/07/2024 3:27 PM EDT [facility] HCO3, Arterial 24 20 - 26 mmol/L 12/07/2024 3:27 PM EDT [facility] Base Excess, Arterial -3.3(L) -2.0 - 2.0 mmol/L 12/07/2024 3:27 PM EDT [facility] O2 Sat, Arterial 91.3(L) 95.0 - 100.0 % 12/07/2024 3:27 PM EDT [facility] CTO2 ARTERIAL 11.2 mmol/L 12/07/2024 3:27 PM EDT [facility] THB ARTERIAL 8.9(L) 12.0 - 18.0 g/dL 12/07/2024 3:27 PM EDT [facility] SJH COLLECTION SITE Right Radial 12/07/2024 3:27 PM EDT [facility] Arterial Puncture Yes 12/07/2024 3:27 PM EDT [facility] Blood Gas O2 Delivery Device Cannula 12/07/2024 3:27 PM T [facility] Oxygen Flow Rate 2 12/07/2024 3:27 PM EDT [facility] Blood Gas PT Temperature C 37.0 12/07/2024 3:27 PM EDT [facility] Sen's Test Unacceptable 12/07/2024 3:27 PM EDT [facility] Vent Mode Other 12/07/2024 3:27 PM EDT [facility] Critical Values Notification Critical Blood gas called to DR MALAGON . [place] [id number] and confirmed on 12/07/2024 14:14 12/07/2024 3:27 PM EDT [facility] ABG Number of Draw Attempts 1 12/07/2024 3:27 PM EDT [facility] Performed by: CD 12/07/2024 3:27 PM EDT [facility] FIO2 12/07/2024 3:27 PM EDT [facility] Blood Gas Temperature Corrected Results No No 12/07/2024 3:27 PM EDT [facility] Blood, Arterial 12/07/2024 2 :02 PM EDT 12/07/2024 2:14 PM EDT Mary Carmen Mcfadden MD LAB BLOOD ORDERABLES Final Resu lt Performing Organization Address [facility] Co de Phone Number [facility] [address] [phone] * (ABNORMAL) Glucose, Nova Meter (12/07/2024 10:54 AM EDT) [facility] Signature POC-GLUCOSE 146(H) 70 - 110 mg/dL 12/07/2024 10:56 AM EDT [facility] Comment: In the event of poor peripheral blood flow, venous or arterial blood should be used due to the potential of erroneous results. Notified Nurse [facility] Bankruptcy Processor [id number] 12/07/2024 10:56 AM EDT [facility] Blood WHOLE BLOOD / Unknown 12/07/2024 10:54 AM EDT 12/07/2024 10:56 AM EDT Narrative [facility] - 12/07/2024 10:56 AM EDT Bankruptcy Processor ID is - [id number] us Mary Carmen Mcfadden MD POINT OF CARE TEST ORDERABLES F inal Result Performing Organization Address [facility]/ZIP Co de Phone Number [facility] [address] [phone] * (ABNORMAL) Blood gas, arterial (12/07/2024 10:36 AM EDT) pH, Arterial 7.26(L) 7.35 - 7.45 12/07/2024 1:50 PM EDT [facility] pCO2, Arterial 50(H) 35 - 45 mm Hg 12/07/2024 1:50 PM EDT [facility] pO2, Arterial 43(LL) 80 - 100 mm Hg 12/07/2024 1:50 PM EDT [facility] HCO3, Arterial 22 20 - 26 mmol/L 12/07/2024 1:50 PM EDT [facility] Base Excess, Arterial -4.7(L) -2.0 - 2.0 mmol/L 12/07/2024 1:50 PM EDT [facility] O2 Sat, Arterial 80.4(L) 95.0 - 100.0 % 12/07/2024 1:50 PM EDT [facility] Comment:[id number] notified TRAY LORENZ RN at 12/07/2024 10:51 read-back verification CTO2 ARTERIAL 9.4 mmol/L 12/07/2024 1:50 PM T [facility] THB ARTERIAL 8.5(L) 12.0 - 18.0 g/dL 12/07/2024 1:50 PM T [facility] PaO2/FIO2 calculated 203.0 12/07/2024 1:50 PM [facility] COLLECTION SITE Right Radial 12/07/2024 1:50 PM T [facility] Arterial Puncture Yes 12/07/2024 1:50 PM T [facility] Blood Gas PT Temperature C 37.0 12/07/2024 1:50 PM T [facility] Sen's Test Acceptable 12/07/2024 1:50 PM T [facility] Critical Values Notification Critical Blood gas called to TRAY LORENZ RN . [place] [id number] and confirmed on 12/07/2024 10:51 12/07/2024 1:50 PM T [facility] ABG Number of Draw Attempts 1 12/07/2024 1:50 PM EDT [facility] FIO2 21.0 12/07/2024 1:50 PM EDT [facility] Blood Gas Temperature Corrected Results No No 12/07/2024 1:50 PM EDT [facility] Blood, Arterial 12/07/2024 1 0:36 AM EDT 12/07/2024 1:50 PM EDT Mary Carmen Mcfadden MD LAB BLOOD ORDERABLES Final Resu lt Performing Organization Address [facility] Co de Phone Number [facility] [address] [phone] * ECG 12 lead (12/07/2024 10:29 AM EDT) VENTRICULAR RATE EKG/MIN 91 BPM GE MUSE ATRIAL RATE (MCT) 91 BPM GE MUSE MI Interval 142 ms GE MUSE QRS-INTERVAL (MSEC) 88 ms GE MUSE QT Interval 376 ms GE MUSE QTC Interval 462 ms GE MUSE P [place] 39 degrees GE MUSE R AXIS (MCT) -3 degrees GE MUSE T Wave [place] 4 degrees GE MUSE Cisne Diagnosis Normal sinus rhythm Nonspecific T wave abnormality Abnormal ECG When compared with ECG of 06-DEC-2024 13:16, No significant change was found Confirmed by DEYSI FOSS M.D. ([id number]) on 12/07/2024 7:36:17 PM GE MUSE 12/07/2024 10:2 9 AM EDT 12/07/2024 7:36 PM EDT Mary Carmen Mcfadden MD ECG ORDERABLES Final Result Performing Organization Address [facility] de Phone Number GE MUSE * (ABNORMAL) Glucose, Nova Meter (12/07/2024 5:51 AM EDT) POC-GLUCOSE 159(H) 70 - 110 mg/dL 12/07/2024 5:52 AM EDT [facility] Comment: In the event of poor peripheral blood flow, venous or arterial blood should be used due to the potential of erroneous results. Notified Nurse RBV Bankruptcy Processor [id number] 12/07/2024 5:52 AM EDT [facility] Blood WHOLE BLOOD / Unknown 12/07/2024 5:51 AM EDT 12/07/2024 5:52 AM EDT Narrative [facility] - 12/07/2024 5:52 AM EDT Bankruptcy Processor ID is - [id number] Mary Carmen Mcfadden MD POINT OF CARE TEST ORDERABLES F inal Result [facility] [address] [phone] * Erythropoietin(SENDOUT) (12/07/2024 3:59 AM EDT) Erythropoietin 19 4 - 27 mU/mL 12/08/2024 2:30 PM EDT [facility] Comment: INTERPRETIVE INFORMATION: Erythropoietin Normal serum concentrations [...] may benefit from therapy with recombinant EPO ([facility] [id number],1989). Performed By: [facility] [address] [place] [address] Policy Analyst: Lalo Mortensen MD, PhD CLIA Number: [id number] Blood Venipuncture / Unknown 12/07/2024 3:59 AM EDT 12/07/2024 4:11 AM EDT us Ariel Mills MD LAB BLOOD ORDERABLES Final Res ult Performing Organization Address [facility]/ZIP Co de Phone Number [facility] [address] [phone] * Ammonia (12/07/2024 3:59 AM EDT) Pathologist [facility] Ammonia 44 18 - 72 mol/L 12/07/2024 4:37 AM EDT [facility] Blood Venipuncture / Unknown 12/07/2024 3:59 AM EDT 12/07/2024 4:22 AM EDT us Timothy Bai MD LAB BLOOD ORDERABLES Final Result Performing Organization Address City/[facility]/ZIP Co de Phone Number [facility] [address] [place] [address] * (ABNORMAL) Comprehensive Metabolic Panel (12/07/2024 3:59 AM EDT) Sodium 146(H) 136 - 145 meq/L 12/07/2024 4:52 AM EDT [facility] Potassium 3.8 3.4 - 5.1 meq/L 12/07/2024 4:52 AM EDT [facility] Chloride 118(H) 98 - 112 meq/L 12/07/2024 4:52 AM EDT [facility] CO2 20(L) 22 - 29 meq/L 12/07/2024 4:52 AM EDT [facility] Calcium 8.4 8.4 - 10.2 mg/dL 12/07/2024 4:52 AM EDT [facility] Glucose 166(H) 82 - 115 mg/dL 12/07/2024 4:52 AM EDT [facility] BUN 72.9(H) 9.8 - 20.1 mg/dL 12/07/2024 4:52 AM [facility] Creatinine 3.13(H) 0.57 - 1.11 mg/dL 12/07/2024 4:52 AM [facility] BUN/Creatinine 23(H) 8 - 20 12/07/2024 4:52 AM [facility] eGFR (mL/min/1.73m2) 16(L) >=60 mL/min/1. 73m2 12/07/2024 4:52 AM [facility] Albumin 4.1 3.5 - 5.0 g/dL 12/07/2024 4:52 AM [facility] Alkaline Phosphatase 48 40 - 150 U/L 12/07/2024 4:52 AM [facility] ALT 9 <=34 U/L 12/07/2024 4:52 AM [facility] Comment: ALT2 reagent used for testing does not contain P5P supplementation and therefore may miss ALT elevations in patients with B6 deficiency. This population may be as high as 10% in the [place], with risk factors including malabsorption, drug interactions, and alcoholic hepatitis. AST 24 11 - 34 U/L 12/07/2024 4:52 AM [facility] Comment: AST2 reagent used for testing does not contain P5P supplementation and therefore may miss AST elevations in patients with B6 deficiency. This population may be as high as 10% in the [place], with risk factors including malabsorption, drug interactions, and alcoholic hepatitis. Total Bilirubin 0.9 0.2 - 1.2 mg/dL 12/07/2024 4:52 AM [facility] Protein, Total 6.4 6.4 - 8.3 g/dL 12/07/2024 4:52 AM [facility] Globulin 2.3(L) 2.5 - 4.1 g/dL 12/07/2024 4:52 AM [facility] Anion Gap 12 4 - 12 12/07/2024 4:52 AM [facility] A/G Ratio 1.8 0.7 - 1.9 12/07/2024 4:52 AM [facility] Osmolality Calc 315.8 mOsm/kg 4:52 AM EDT [facility] Blood Venipuncture / Unknown 12/07/2024 3:59 AM EDT 12/07/2024 4:09 AM EDT Timothy Bai MD LAB BLOOD ORDERABLES Final Result [facility] [address] [phone] * Magnesium (12/07/2024 3:59 AM EDT) Magnesium 2.4 1.6 - 2.6 mg/dL 12/07/2024 4:52 AM EDT [facility] Blood Venipuncture / Unknown 12/07/2024 3:59 AM EDT 12/07/2024 4:09 AM EDT Timothy Bai MD LAB BLOOD ORDERABLES Final Result Performing Organization Address City/[facility]/ZIP Co de Phone Number [facility] [address] [phone] * (ABNORMAL) CBC - Hemogram (SJ-BKR) (12/07/2024 3:59 AM EDT) WBC 3.5(L) 4.0 - 10.0 K/ L 12/07/2024 4:31 AM EDT [facility] RBC 2.58(L) 3.93 - 5.22 M/ L 12/07/2024 4:31 AM EDT [facility] Hemoglobin 7.9(L) 11.2 - 15.7 GM/DL 12/07/2024 4:31 AM EDT [facility] Hematocrit 25.6(L) 34.1 - 44.9 % 12/07/2024 4:31 AM EDT [facility] MCV 99(H) 79 - 95 fL 12/07/2024 4:31 AM EDT [facility] MCH 30.6 25.6 - 32.2 pg 12/07/2024 4:31 AM EDT [facility] MCHC 30.9(L) 32.2 - 35.5 GM/DL 12/07/2024 4:31 AM EDT [facility] RDW 17.4(H) 11.7 - 14.4 % 12/07/2024 4:31 AM EDT [facility] Platelets 54(L) 140 - 375 K/CU MM 12/07/2024 4:31 AM EDT [facility] MPV 12.2 9.4 - 12.3 fL 12/07/2024 4:31 AM EDT [facility] Blood Venipuncture / Unknown 12/07/2024 3:59 AM EDT 12/07/2024 4:09 AM EDT us Timothy Bai MD LAB BLOOD ORDERABLES Final Result Performing Organization Address [facility] Co de Phone Number [facility] [address] [phone] * (ABNORMAL) Glucose, Nova Meter (12/06/2024 7:26 PM EDT) [facility] POC-GLUCOSE 170(H) 70 - 110 mg/dL 12/06/2024 7:27 PM EDT [facility] Comment: In the event of poor peripheral blood flow, venous or arterial blood should be used due to the potential of erroneous results. Notified Nurse RBV Bankruptcy Processor [id number] 12/06/2024 7:27 PM EDT [facility] Blood WHOLE BLOOD / Unknown 12/06/2024 7:26 PM EDT 12/06/2024 7:27 PM EDT Narrative [facility] - 12/06/2024 7:27 PM EDT Bankruptcy Processor ID is - [id number] us Mary Carmen Mcfadden MD POINT OF CARE TEST ORDERABLES F inal Result Performing Organization Address [facility]/ZIP Co de Phone Number [facility] [address] [phone] * (ABNORMAL) Glucose, Nova Meter (12/06/2024 4:06 PM EDT) POC-GLUCOSE 134(H) 70 - 110 mg/dL 12/06/2024 4:07 PM EDT [facility] Comment: In the event of poor peripheral blood flow, venous or arterial blood should be used due to the potential of erroneous results. Notified Nurse RBV Bankruptcy Processor [id number] 12/06/2024 4:07 PM EDT [facility] Blood WHOLE BLOOD / Unknown 12/06/2024 4:06 PM EDT 12/06/2024 4:07 PM EDT Narrative [facility] - 12/06/2024 4:07 PM EDT Bankruptcy Processor ID is - [id number] us Mary Carmen Mcfadden MD POINT OF CARE TEST ORDERABLES F inal Result [facility] [address] [phone] * ECG 12 lead (12/06/2024 1:16 PM EDT) VENTRICULAR RATE EKG/MIN 90 BPM GE MUSE ATRIAL RATE (MCT) 90 BPM GE MUSE MI Interval 142 ms GE MUSE QRS-INTERVAL (MSEC) 92 ms GE MUSE QT Interval 378 ms GE MUSE QTC Interval 462 ms GE MUSE P [place] 28 degrees GE MUSE R AXIS (MCT) -4 degrees GE MUSE T Wave [place] 21 degrees GE MUSE Cisne Diagnosis Normal sinus rhythm Septal infarct , age undetermined Confirmed by DEYSI FOSS M.D. ([id number]) on 12/07/2024 7:40:21 PM GE MUSE 12/06/2024 1:16 PM EDT 12/07/2024 7:40 PM EDT us Deysi Foss MD ECG ORDERABLES Final Result Performing Organization Address City/[facility]/ZIP Co de Phone Number GE MUSE * (ABNORMAL) Glucose, Nova Meter (12/06/2024 10:36 AM EDT) POC-GLUCOSE 150(H) 70 - 110 mg/dL 12/06/2024 10:37 AM EDT [facility] Comment: In the event of poor peripheral blood flow, venous or arterial blood should be used due to the potential of erroneous results. Notified Nurse RBV Bankruptcy Processor [id number] 12/06/2024 10:37 AM EDT [facility] Blood WHOLE BLOOD / Unknown 12/06/2024 10:36 AM EDT 12/06/2024 10:37 AM EDT Narrative [facility] - 12/06/2024 10:37 AM EDT Bankruptcy Processor ID is - [id number] us Mary Carmen Mcfadden MD POINT OF CARE TEST ORDERABLES F inal Result [facility] [address] [phone] * XR chest AP portable (12/06/2024 7:34 [...] - 110 mg/dL 12/06/2024 5:27 AM EDT [facility] Comment: In the event of poor peripheral blood flow, venous or arterial blood should be used due to the potential of erroneous results. Notified Nurse RBV Bankruptcy Processor [id number] 12/06/2024 5:27 AM EDT [facility] Blood WHOLE BLOOD / Unknown 12/06/2024 5:26 AM EDT 12/06/2024 5:27 AM EDT Narrative [facility] - 12/06/2024 5:27 AM EDT Bankruptcy Processor ID is - [id number] us Timothy Bai MD POINT OF CARE TEST ORDERAB LES Final Result Performing Organization Address [facility]/ZIP Co de Phone Number [facility] [address] [phone] * (ABNORMAL) Ferritin (12/06/2024 3:13 AM EDT) Pathologist [facility] Ferritin 256.82(H) 4.63 - 204.00 ng/mL 12/06/2024 8:25 AM EDT [facility] Blood Venipuncture / Unknown 12/06/2024 3:13 AM EDT 12/06/2024 3:50 AM EDT us Ariel Mills MD LAB BLOOD ORDERABLES Final Res ult Performing Organization Address [facility]/ZIP Co de Phone Number [facility] [address] [phone] * Ammonia (12/06/2024 3:13 AM EDT) Ammonia 47 18 - 72 mol/L 12/06/2024 4:48 AM EDT [facility] Blood Venipuncture / Unknown 12/06/2024 3:13 AM EDT 12/06/2024 3:51 AM EDT us Timothy Bai MD LAB BLOOD ORDERABLES Final Result [facility] [address] [phone] * (ABNORMAL) Comprehensive Metabolic Panel (12/06/2024 3:13 AM EDT) Sodium 146(H) 136 - 145 meq/L 12/06/2024 4:26 AM EDT [facility] Potassium 3.9 3.4 - 5.1 meq/L 12/06/2024 4:26 AM EDT [facility] Chloride 116(H) 98 - 112 meq/L 12/06/2024 4:26 AM EDT [facility] CO2 20(L) 22 - 29 meq/L 12/06/2024 4:26 AM EDT [facility] Calcium 8.6 8.4 - 10.2 mg/dL 12/06/2024 4:26 AM EDT [facility] Glucose 149(H) 82 - 115 mg/dL 12/06/2024 4:26 AM EDT [facility] BUN 63.3(H) 9.8 - 20.1 mg/dL 12/06/2024 4:26 AM EDT [facility] Creatinine 3.37(H) 0.57 - 1.11 mg/dL 12/06/2024 4:26 AM EDT [facility] BUN/Creatinine 19 8 - 20 12/06/2024 4:26 AM EDT [facility] eGFR (mL/min/1.73m2) 15(L) >=60 mL/min/1. 73m2 12/06/2024 4:26 AM EDT [facility] Albumin 4.6 3.5 - 5.0 g/dL 12/06/2024 4:26 AM EDT [facility] Alkaline Phosphatase 47 40 - 150 U/L 12/06/2024 4:26 AM EDT [facility] ALT 11 <=34 U/L 12/06/2024 4:26 AM EDT [facility] Comment: ALT2 reagent used for testing does not contain P5P supplementation and therefore may miss ALT elevations in patients with B6 deficiency. This population may be as high as 10% in the [place], with risk factors including malabsorption, drug interactions, and alcoholic hepatitis. AST 21 11 - 34 U/L 12/06/2024 4:26 AM EDT [facility] Comment: AST2 reagent used for testing does not contain P5P supplementation and therefore may miss AST elevations in patients with B6 deficiency. This population may be as high as 10% in the [place], with risk factors including malabsorption, drug interactions, and alcoholic hepatitis. Total Bilirubin 1.2 0.2 - 1.2 mg/dL 12/06/2024 4:26 AM EDT [facility] Protein, Total 7.0 6.4 - 8.3 g/dL 12/06/2024 4:26 AM EDT [facility] Globulin 2.4(L) 2.5 - 4.1 g/dL 12/06/2024 4:26 AM EDT [facility] Anion Gap 14(H) 4 - 12 12/06/2024 4:26 AM T [facility] A/G Ratio 1.9 0.7 - 1.9 12/06/2024 4:26 AM EDT [facility] Osmolality Calc 311.4 mOsm/kg 4:26 AM T [facility] Blood Venipuncture / Unknown 12/06/2024 3:13 AM EDT 12/06/2024 3:50 AM EDT us Timothy Bai MD LAB BLOOD ORDERABLES Final Result [facility] [address] [phone] * Magnesium (12/06/2024 3:13 AM EDT) Magnesium 2.4 1.6 - 2.6 mg/dL 12/06/2024 4:26 AM EDT [facility] Blood Venipuncture / Unknown 12/06/2024 3:13 AM EDT 12/06/2024 3:50 AM EDT us Timothy Bai MD LAB BLOOD ORDERABLES Final Result [facility] [address] [phone] * (ABNORMAL) CBC - Hemogram (SJ-BKR) (12/06/2024 3:13 AM EDT) WBC 7.0 4.0 - 10.0 K/ L 12/06/2024 4:10 AM EDT [facility] RBC 2.83(L) 3.93 - 5.22 M/ L 12/06/2024 4:10 AM EDT [facility] Hemoglobin 8.7(L) 11.2 - 15.7 GM/DL 12/06/2024 4:10 AM EDT [facility] Hematocrit 28.2(L) 34.1 - 44.9 % 12/06/2024 4:10 AM EDT [facility] MCV 100(H) 79 - 95 fL 12/06/2024 4:10 AM EDT [facility] MCH 30.7 25.6 - 32.2 pg 12/06/2024 4:10 AM EDT [facility] MCHC 30.9(L) 32.2 - 35.5 GM/DL 12/06/2024 4:10 AM EDT [facility] RDW 17.2(H) 11.7 - 14.4 % 12/06/2024 4:10 AM EDT [facility] Platelets 80(L) 140 - 375 K/CU MM 12/06/2024 4:10 AM EDT [facility] MPV 11.7 9.4 - 12.3 fL 12/06/2024 4:10 AM EDT [facility] Blood Venipuncture / Unknown 12/06/2024 3:13 AM EDT 12/06/2024 3:53 AM EDT Timothy Bai MD LAB BLOOD ORDERABLES Final Result Performing Organization Address [facility]/ZIP Co de Phone Number [facility] [address] [phone] * (ABNORMAL) Glucose, Nova Meter (12/05/2024 7:21 PM EDT) POC-GLUCOSE 145(H) 70 - 110 mg/dL 12/05/2024 7:22 PM EDT [facility] Comment: In the event of poor peripheral blood flow, venous or arterial blood should be used due to the potential of erroneous results. Notified Nurse RBV Bankruptcy Processor [id number] 12/05/2024 7:22 PM EDT [facility] Blood WHOLE BLOOD / Unknown 12/05/2024 7:21 PM EDT 12/05/2024 7:22 PM EDT Narrative [facility] - 12/05/2024 7:22 PM EDT Bankruptcy Processor ID is - [id number] Timothy Bai MD POINT OF CARE TEST ORDERAB LES Final Result Performing Organization Address [facility] Co de Phone Number [facility] [address] [phone] * (ABNORMAL) Glucose, Nova Meter (12/05/2024 5:01 PM EDT) POC-GLUCOSE 140(H) 70 - 110 mg/dL 12/05/2024 5:02 PM EDT [facility] Comment: In the event of poor peripheral blood flow, venous or arterial blood should be used due to the potential of erroneous results. Notified Nurse RBV Bankruptcy Processor [id number] 12/05/2024 5:02 PM EDT [facility] Blood WHOLE BLOOD / Unknown 12/05/2024 5:01 PM EDT 12/05/2024 5:02 PM EDT Narrative [facility] - 12/05/2024 5:02 PM EDT Bankruptcy Processor ID is - [id number] us Timothy Bai MD POINT OF CARE TEST ORDERAB LES Final Result Performing Organization Address [facility]/ZIP Co de Phone Number [facility] [address] [place] [address], [facility] [phone] * (ABNORMAL) Hemoglobin (12/05/2024 3:36 PM EDT) Hemoglobin 8.1(L) 11.2 - 15.7 GM/DL 12/05/2024 3:57 PM EDT [facility] Blood Venipuncture / Unknown 12/05/2024 3:36 PM EDT 12/05/2024 3:47 PM EDT us Timothy Bai MD LAB BLOOD ORDERABLES Final Result Performing Organization Address [facility] Co de Phone Number [facility] [address] [phone] * (ABNORMAL) Glucose, Nova Meter (12/05/2024 10:23 AM EDT) POC-GLUCOSE 141(H) 70 - 110 mg/dL 12/05/2024 10:24 AM EDT [facility] Comment: In the event of poor peripheral blood flow, venous or arterial blood should be used due to the potential of erroneous results. Notified Nurse RBV Protocols Followed Bankruptcy Processor [id number] 12/05/2024 10:24 AM EDT [facility] Blood WHOLE BLOOD / Unknown 12/05/2024 10:23 AM EDT 12/05/2024 10:24 AM EDT Narrative [facility] - 12/05/2024 10:24 AM EDT Bankruptcy Processor ID is - [id number] us Timothy Bai MD POINT OF CARE TEST ORDERAB LES Final Result Performing Organization Address [facility] Co de Phone Number [facility] [address] [place] [address], [facility] [phone] * (ABNORMAL) Glucose, Nova Meter (12/05/2024 8:10 AM EDT) POC-GLUCOSE 123(H) 70 - 110 mg/dL 12/05/2024 8:27 AM EDT [facility] Comment: In the event of poor peripheral blood flow, venous or arterial blood should be used due to the potential of erroneous results. Notified Nurse RBV Bankruptcy Processor [id number] 12/05/2024 8:27 AM EDT [facility] Blood WHOLE BLOOD / Unknown 12/05/2024 8:10 AM EDT 12/05/2024 8:27 AM EDT Narrative [facility] - 12/05/2024 8:27 AM EDT Bankruptcy Processor ID is - [id number] Timothy Bai MD POINT OF CARE TEST ORDERAB LES Final Result Performing Organization Address City/[facility]/ZIP Co de Phone Number [facility] [address] [phone] * (ABNORMAL) Hemoglobin (12/05/2024 8:00 AM EDT) Hemoglobin 8.2(L) 11.2 - 15.7 GM/DL 12/05/2024 8:21 AM EDT [facility] Blood Venipuncture / Unknown 12/05/2024 8:00 AM EDT 12/05/2024 8:06 AM EDT Timothy Bai MD LAB BLOOD ORDERABLES Final Result [facility] [address] [phone] * Ammonia (12/05/2024 3:20 AM EDT) Ammonia 41 18 - 72 mol/L 12/05/2024 4:02 AM EDT [facility] Blood Venipuncture / Unknown 12/05/2024 3:20 AM EDT 12/05/2024 3:24 AM EDT us Timothy Bai MD LAB BLOOD ORDERABLES Final Result [facility] [address] [phone] * (ABNORMAL) Comprehensive Metabolic Panel (12/05/2024 3:20 AM EDT) Sodium 146(H) 136 - 145 meq/L 12/05/2024 4:11 AM EDT [facility] Potassium 3.6 3.4 - 5.1 meq/L 12/05/2024 4:11 AM EDT [facility] Chloride 117(H) 98 - 112 meq/L 12/05/2024 4:11 AM EDT [facility] CO2 20(L) 22 - 29 meq/L 12/05/2024 4:11 AM EDT [facility] Calcium 8.3(L) 8.4 - 10.2 mg/dL 12/05/2024 4:11 AM EDT [facility] Glucose 148(H) 82 - 115 mg/dL 12/05/2024 4:11 AM EDT [facility] BUN 59.4(H) 9.8 - 20.1 mg/dL 12/05/2024 4:11 AM EDT [facility] Creatinine 3.14(H) 0.57 - 1.11 mg/dL 12/05/2024 4:11 AM EDT [facility] BUN/Creatinine 19 8 - 20 12/05/2024 4:11 AM EDT [facility] eGFR (mL/min/1.73m2) 16(L) >=60 mL/min/1. 73m2 12/05/2024 4:11 AM EDT [facility] Albumin 4.3 3.5 - 5.0 g/dL 12/05/2024 4:11 AM EDT [facility] Alkaline Phosphatase 44 40 - 150 U/L 12/05/2024 4:11 AM EDT [facility] ALT 8 <=34 U/L 12/05/2024 4:11 AM EDT [facility] Comment: ALT2 reagent used for testing does not contain P5P supplementation and therefore may miss ALT elevations in patients with B6 deficiency. This population may be as high as 10% in the [place], with risk factors including malabsorption, drug interactions, and alcoholic hepatitis. AST 23 11 - 34 U/L 12/05/2024 4:11 AM EDT [facility] Comment: AST2 reagent used for testing does not contain P5P supplementation and therefore may miss AST elevations in patients with B6 deficiency. This population may be as high as 10% in the [place], with risk factors including malabsorption, drug interactions, and alcoholic hepatitis. Total Bilirubin 1.2 0.2 - 1.2 mg/dL 12/05/2024 4:11 AM EDT [facility] Protein, Total 6.4 6.4 - 8.3 g/dL 12/05/2024 4:11 AM EDT [facility] Globulin 2.1(L) 2.5 - 4.1 g/dL 12/05/2024 4:11 AM EDT [facility] Anion Gap 13(H) 4 - 12 12/05/2024 4:11 AM EDT [facility] A/G Ratio 2.0(H) 0.7 - 1.9 12/05/2024 4:11 AM EDT [facility] Osmolality Calc 310.0 mOsm/kg 4:11 AM EDT [facility] Blood Venipuncture / Unknown 12/05/2024 3:20 AM EDT 12/05/2024 3:24 AM EDT us Timothy Bai MD LAB BLOOD ORDERABLES Final Result [facility] [address] [phone] * Magnesium (12/05/2024 3:20 AM EDT) Magnesium 2.3 1.6 - 2.6 mg/dL 12/05/2024 4:11 AM EDT [facility] Blood Venipuncture / Unknown 12/05/2024 3:20 AM EDT 12/05/2024 3:24 AM EDT Timothy Bai MD LAB BLOOD ORDERABLES Final Result [facility] [address] [phone] * (ABNORMAL) CBC - Hemogram (SJ-BKR) (12/05/2024 3:20 AM EDT) WBC 4.2 4.0 - 10.0 K/ L 12/05/2024 3:34 AM EDT [facility] RBC 2.64(L) 3.93 - 5.22 M/ L 12/05/2024 3:34 AM EDT [facility] Hemoglobin 8.2(L) 11.2 - 15.7 GM/DL 12/05/2024 3:34 AM EDT [facility] Hematocrit 25.9(L) 34.1 - 44.9 % 12/05/2024 3:34 AM EDT [facility] MCV 98(H) 79 - 95 fL 12/05/2024 3:34 AM EDT [facility] MCH 31.1 25.6 - 32.2 pg 12/05/2024 3:34 AM EDT [facility] MCHC 31.7(L) 32.2 - 35.5 GM/DL 12/05/2024 3:34 AM EDT [facility] RDW 17.1(H) 11.7 - 14.4 % 12/05/2024 3:34 AM EDT [facility] Platelets 60(L) 140 - 375 K/CU MM 12/05/2024 3:34 AM EDT [facility] MPV 11.3 9.4 - 12.3 fL 12/05/2024 3:34 AM EDT [facility] Blood Venipuncture / Unknown 12/05/2024 3:20 AM EDT 12/05/2024 3:24 AM EDT Timothy Bai MD LAB BLOOD ORDERABLES Final Result [facility] [address] [phone] * (ABNORMAL) Hemoglobin (12/04/2024 11:54 PM EDT) [facility] Hemoglobin 8.7(L) 11.2 - 15.7 GM/DL 12/05/2024 12:07 AM EDT [facility] Blood Venipuncture / Unknown 12/04/2024 11:54 PM EDT 12/04/2024 11:59 PM EDT Timothy Bai MD LAB BLOOD ORDERABLES Final Result Performing Organization Address [facility] Co de Phone Number [facility] [address] [phone] * (ABNORMAL) Glucose, Nova Meter (12/04/2024 10:20 PM EDT) [facility] POC-GLUCOSE 147(H) 70 - 110 mg/dL 12/04/2024 10:22 PM EDT [facility] Comment: In the event of poor peripheral blood flow, venous or arterial blood should be used due to the potential of erroneous results. Protocols Followed Bankruptcy Processor [id number] 12/04/2024 10:22 PM EDT [facility] Blood WHOLE BLOOD / Unknown 12/04/2024 10:20 PM EDT 12/04/2024 10:21 PM EDT Narrative [facility] - 12/04/2024 10:22 PM EDT Bankruptcy Processor ID is - [id number] us Timothy Bai MD POINT OF CARE TEST ORDERAB LES Final Result Performing Organization Address [facility] Co de Phone Number [facility] [address] [place] [address], [facility] [phone] * ECG 12 lead (12/04/2024 8:08 PM EDT) [facility] SYSTOLIC BLOOD PRESSURE (MCT) 133 mmHg GE MUSE DIASTOLIC BLOOD PRESSURE (MCT) 61 mmHg GE MUSE VENTRICULAR RATE EKG/MIN 85 BPM GE MUSE ATRIAL RATE (MCT) 85 BPM GE MUSE MI Interval 140 ms GE MUSE QRS-INTERVAL (MSEC) 94 ms GE MUSE QT Interval 426 ms GE MUSE QTC Interval 506 ms GE MUSE P [place] 44 degrees GE MUSE R AXIS (MCT) 27 degrees GE MUSE T Wave [place] -27 degrees GE MUSE Cisne Diagnosis Normal sinus rhythm Nonspecific T wave abnormality Abnormal ECG Confirmed by DEYSI FOSS M.D. ([id number]) on 12/05/2024 1:52:09 PM GE MUSE 12/04/2024 8:08 PM EDT 12/05/2024 1:52 PM EDT Timothy Bai MD ECG ORDERABLES Final Resu lt Performing Organization Address [facility] Co de Phone Number GE MUSE * (ABNORMAL) Glucose, Nova Meter (12/04/2024 4:50 PM EDT) POC-GLUCOSE 137(H) 70 - 110 mg/dL 12/04/2024 4:51 PM EDT [facility] Comment: In the event of poor peripheral blood flow, venous or arterial blood should be used due to the potential of erroneous results. Protocols Followed Bankruptcy Processor [id number] 12/04/2024 4:51 PM EDT [facility] Blood WHOLE BLOOD / Unknown 12/04/2024 4:50 PM EDT 12/04/2024 4:51 PM EDT Narrative [facility] - 12/04/2024 4:51 PM EDT Bankruptcy Processor ID is - [id number] us Timothy Bai MD POINT OF CARE TEST ORDERAB LES Final Result [facility] [address] [phone] * (ABNORMAL) Hemoglobin (12/04/2024 4:27 PM EDT) Hemoglobin 8.9(L) 11.2 - 15.7 GM/DL 12/04/2024 4:36 PM EDT [facility] Blood Venipuncture / Unknown 12/04/2024 4:27 PM EDT 12/04/2024 4:31 PM EDT us Timothy Bai MD LAB BLOOD ORDERABLES Final Result [facility] [address] [phone] * (ABNORMAL) Basic Metabolic Panel (12/04/2024 10:53 AM EDT) Sodium 146(H) 136 - 145 meq/L 12/04/2024 11:17 AM EDT [facility] Potassium 3.6 3.4 - 5.1 meq/L 12/04/2024 11:17 AM EDT [facility] CO2 20(L) 22 - 29 meq/L 12/04/2024 11:17 AM EDT [facility] Chloride 116(H) 98 - 112 meq/L 12/04/2024 11:17 AM EDT [facility] Glucose 137(H) 82 - 115 mg/dL 12/04/2024 11:17 AM EDT [facility] BUN 61.1(H) 9.8 - 20.1 mg/dL 12/04/2024 11:17 AM EDT [facility] Creatinine 3.38(H) 0.57 - 1.11 mg/dL 12/04/2024 11:17 AM EDT [facility] BUN/Creatinine 18 8 - 20 12/04/2024 11:17 AM EDT [facility] Calcium 8.5 8.4 - 10.2 mg/dL 12/04/2024 11:17 AM EDT [facility] Anion Gap 14(H) 4 - 12 12/04/2024 11:17 AM EDT [facility] eGFR (mL/min/1.73m2) 15(L) >=60 mL/min/1.7 3m2 12/04/2024 11:17 AM EDT [facility] Osmolality Calc 310.0 mOsm/kg 11:17 AM EDT [facility] Blood Venipuncture / Unknown 12/04/2024 10:53 AM EDT 12/04/2024 10:57 AM EDT Timothy Bai MD LAB BLOOD ORDERABLES Final Result Performing Organization Address [facility] Phone Number [facility] [address] [phone] * (ABNORMAL) Glucose, Nova Meter (12/04/2024 10:52 AM EDT) Pathologist [facility] POC-GLUCOSE 136(H) 70 - 110 mg/dL 12/04/2024 10:57 AM EDT [facility] Comment: In the event of poor peripheral blood flow, venous or arterial blood should be used due to the potential of erroneous results. Notified Nurse RBV Bankruptcy Processor [id number] 12/04/2024 10:57 AM EDT [facility] Blood WHOLE BLOOD / Unknown 12/04/2024 10:52 AM EDT 12/04/2024 10:57 AM EDT Narrative [facility] - 12/04/2024 10:57 AM EDT Bankruptcy Processor ID is - [id number] Timothy Bai MD POINT OF CARE TEST ORDERAB LES Final Result Performing Organization Address [facility] Phone Number [facility] [address] [phone] * (ABNORMAL) CBC with automated diff (12/04/2024 8:15 AM EDT) Pathologist [facility] WBC 4.1 4.0 - 10.0 K/ L 12/04/2024 9:56 AM EDT [facility] RBC 2.90(L) 3.93 - 5.22 M/ L 12/04/2024 9:56 AM EDT [facility] Hemoglobin 8.8(L) 11.2 - 15.7 GM/DL 12/04/2024 9:56 AM EDT [facility] Hematocrit 29.0(L) 34.1 - 44.9 % 12/04/2024 9:56 AM EDT [facility] MCV 100(H) 79 - 95 fL 12/04/2024 9:56 AM EDT [facility] MCH 30.3 25.6 - 32.2 pg 12/04/2024 9:56 AM EDT [facility] MCHC 30.3(L) 32.2 - 35.5 GM/DL 12/04/2024 9:56 AM EDT [facility] RDW 17.7(H) 11.7 - 14.4 % 12/04/2024 9:56 AM EDT [facility] Platelets 65(L) 140 - 375 K/CU MM 12/04/2024 9:56 AM EDT [facility] MPV 10.8 9.4 - 12.3 fL 12/04/2024 9:56 AM EDT [facility] % Neutros 79(H) 34 - 71 % 12/04/2024 9:56 AM EDT [facility] % Lymphs 12(L) 19 - 52 % 12/04/2024 9:56 AM EDT [facility] % Monos 9 5 - 13 % 12/04/2024 9:56 AM EDT [facility] % Eos 0(L) 1 - 6 % 12/04/2024 9:56 AM EDT [facility] % Baso 0 0 - 1 % 12/04/2024 9:56 AM EDT [facility] NRBC Absolute <0.01 0 - 0.012 K/ul 12/04/2024 9:56 AM EDT [facility] # Neutros 3.25 1.56 - 6.13 K/ L 12/04/2024 9:56 AM EDT [facility] # Lymphs 0.48(L) 1.18 - 3.74 K/ L 12/04/2024 9:56 AM EDT [facility] # Monos 0.35 0.24 - 0.86 K/ L 12/04/2024 9:56 AM EDT [facility] # Eos <0.03(L) 0.04 - 0.36 K/ L 12/04/2024 9:56 AM EDT [facility] # Baso <0.03 0.01 - 0.08 K/ L 12/04/2024 9:56 AM EDT [facility] Immature Granulocytes-Re lative 0.50(H) 0.01 - 0.43 % 12/04/2024 9:56 AM EDT [facility] # IG <0.03 0.00 - 0.03 K/uL 12/04/2024 9:56 AM EDT [facility] Blood Venipuncture / Unknown 12/04/2024 8:15 AM EDT 12/04/2024 8:32 AM EDT Narrative [facility] - 12/04/2024 9:56 AM [...] Bai MD LAB BLOOD ORDERABLES Final Result [facility] [address] [phone] * (ABNORMAL) Hemoglobin (12/04/2024 8:15 AM EDT) [facility] Hemoglobin 9.0(L) 11.2 - 15.7 GM/DL 12/04/2024 8:36 AM EDT [facility] Blood Venipuncture / Unknown 12/04/2024 8:15 AM EDT 12/04/2024 8:32 AM EDT Timothy Bai MD LAB BLOOD ORDERABLES Final Result [facility] [address] [phone] * ANCA Vasculitis Profile(SENDOUT) (12/04/2024 8:15 AM EDT) Myeloperoxidase (MPO) Ab, IgG 0 0 - 19 AU/mL 12/07/2024 8:52 AM EDT [facility] [employer] Comment: INTERPRETIVE INFORMATION: Myeloperoxidase Abs, IgG 19 AU/mL or Less ......... Negative 20-25 AU/mL .............. Equivocal 26 AU/mL or Greater ...... Positive Approximately 90% of patients with a P-ANCA pattern by IFA have antibodies specific for MPO. Serine Proteinase 3 (PR3) Ab, IgG 0 0 - 19 AU/mL 12/07/2024 8:52 AM EDT [facility] [employer] Comment: INTERPRETIVE INFORMATION: Serine Proteinase 3, IgG 19 AU/mL or Less ........ Negative 20-25 AU/mL ............. Equivocal 26 AU/mL or Greater ..... Positive Approximately 85% of patients with a C-ANCA pattern by IFA have antibodies specific for PR3. ANCA IFA Titer <1:20 <1:20 12/07/2024 8:52 AM EDT [facility] ANCA IFA Pattern None Detected None Detected 12/07/2024 8:52 AM EDT [facility] [employer] Comment: INTERPRETIVE INFORMATION: ANCA IFA Pattern Neutrophil Cytoplasmic Antibodies (C-ANCA = granular cytoplasmic staining, P-ANCA = perinuclear staining) are found in the serum of over 90 percent of patients with certain necrotizing systemic vasculitides, and usually in less than 5 percent of patients with collagen vascular disease or arthritis. Performed By: [facility] [address] [place] [address] Policy Analyst: Lalo Mortensen MD, PhD CLIA Number: [id number] Blood Venipuncture / Unknown 12/04/2024 8:15 AM EDT 12/04/2024 8:32 AM EDT us Laura Cervantes MD LAB BLOOD ORDERABLES Final Re sult [employer] [address] [place] [address], [facility] [phone] * JEANA Reflexive Profile(SENDOUT) (12/04/2024 8:15 AM EDT) Anti-Nuclear Ab (JEANA), IgG by SHARON None Detected None Detected 12/06/2024 3:51 PM EDT [employer] Comment: No Anti-Nuclear Antibodies (JEANA) detected by SHARON. The Extractable Nuclear Antigen Antibodies (POLYGRAPH OPERATOR, Llanes, SSA 52, SSA 60, Scleroderma, Lilia-1 and SSB) and Double Stranded DNA (dsDNA) Antibody, IgG will not be performed. If suspicion of connective tissue disease is strong, and JEANA is negative by SHARON, consider testing for JEANA by IFA ([id number]). INTERPRETIVE INFORMATION: Anti-Nuclear Antibodies (JEANA), IgG by SHARON Antinuclear Antibodies (JEANA), IgG by SHARON: JEANA specimens are screened using enzyme-linked immunosorbent assay (SHARON) methodology. All SHARON results reported as Detected are further tested by indirect fluorescent assay (IFA) using HEp-2 substrate with an IgG-specific conjugate. The JEANA SHARON screen is designed to detect antibodies against dsDNA, histones, SS-A (Ro), SS-B (La), Llanes, Llanes/POLYGRAPH OPERATOR, Scl-70, Lilia-1, centromeric proteins, other antigens extracted from the HEp-2 cell nucleus. JEANA SHARON assays have been reported to have lower sensitivities than JEANA IFA for systemic autoimmune rheumatic diseases (SARD). Negative results do not necessarily rule out SARD. Performed By: [employer] [address] [place] [address] Policy Analyst: Lalo Mortensen MD, PhD CLIA Number: [id number] Blood Venipuncture / Unknown 12/04/2024 8:15 AM EDT 12/04/2024 8:32 AM EDT us Laura Cervantes MD LAB BLOOD ORDERABLES Final Re sult [employer] [address] [id number], [facility] [phone] * XR chest AP portable (12/04/2024 6:49 [...] by Regina Villasenor PA-C. Kirsty Tuttle APRN IM DIAGNOSTIC IMAGING ORDER LONNY Final Result * (ABNORMAL) Blood gas, arterial (12/04/2024 6:34 AM EDT) pH, Arterial 7.29(L) 7.35 - 7.45 12/04/2024 7:10 AM EDT [facility] pCO2, Arterial 43 35 - 45 mm Hg 12/04/2024 7:10 AM EDT [facility] pO2, Arterial 106(H) 80 - 100 mm Hg 12/04/2024 7:10 AM EDT [facility] HCO3, Arterial 21 20 - 26 mmol/L 12/04/2024 7:10 AM EDT [facility] Base Excess, Arterial -5.2(L) -2.0 - 2.0 mmol/L 12/04/2024 7:10 AM EDT [facility] O2 Sat, Arterial 98.8 95.0 - 100.0 % 12/04/2024 7:10 AM EDT [facility] CTO2 ARTERIAL 11.9 mmol/L 12/04/2024 7:10 AM EDT [facility] THB ARTERIAL 8.6(L) 12.0 - 18.0 g/dL 12/04/2024 7:10 AM EDT [facility] COLLECTION SITE Right Brachial 12/04/2024 7:10 AM EDT [facility] Arterial Puncture Yes 12/04/2024 7:10 AM EDT [facility] Blood Gas O2 Delivery Device Cannula 12/04/2024 7:10 AM EDT [facility] Oxygen Flow Rate 3 12/05/19 7:10 AM EDT [facility] Blood Gas PT Temperature C 37.0 12/04/2024 7:10 AM EDT [facility] Sen's Test Not Applicable 12/05/19 7:[facility] Values Notification Critical Blood gas called to DAYANARA MATIAS . Results acknowledged/r ead back to [id number] and confirmed on 12/04/2024 07:09 12/04/2024 7:10 AM [facility] ABG Number of Draw Attempts 1 12/04/2024 7:10 AM [facility] FIO2 12/04/2024 7:10 AM T [facility] Blood Gas Temperature Corrected Results No No 12/04/2024 7:10 AM [facility] Blood, Arterial 12/04/2024 6 :34 AM EDT 12/04/2024 7:10 AM EDT us Kirsty Tuttle APRN LAB BLOOD ORDERABLES Final R esult [facility] [address] [phone] * (ABNORMAL) Glucose, Nova Meter (12/04/2024 6:13 AM EDT) POC-GLUCOSE 155(H) 70 - 110 mg/dL 12/04/2024 6:14 AM EDT [facility] Comment: In the event of poor peripheral blood flow, venous or arterial blood should be used due to the potential of erroneous results. Protocols Followed Bankruptcy Processor [id number] 12/04/2024 6:14 AM EDT [facility] Blood WHOLE BLOOD / Unknown 12/04/2024 6:13 AM EDT 12/04/2024 6:14 AM EDT Narrative [facility] - 12/04/2024 6:14 AM EDT Bankruptcy Processor ID is - [id number] us Timothy Bai MD POINT OF CARE TEST ORDERAB LES Final Result [facility] [address] [phone] * (ABNORMAL) CBC with automated diff (12/04/2024 3:35 AM EDT) WBC 3.2(L) 4.0 - 10.0 K/ L 12/04/2024 3:55 AM EDT [facility] RBC 2.88(L) 3.93 - 5.22 M/ L 12/04/2024 3:55 AM EDT [facility] Hemoglobin 8.9(L) 11.2 - 15.7 GM/DL 12/04/2024 3:55 AM EDT [facility] Hematocrit 28.4(L) 34.1 - 44.9 % 12/04/2024 3:55 AM EDT [facility] MCV 99(H) 79 - 95 fL 12/04/2024 3:55 AM EDT [facility] MCH 30.9 25.6 - 32.2 pg 12/04/2024 3:55 AM EDT [facility] MCHC 31.3(L) 32.2 - 35.5 GM/DL 12/04/2024 3:55 AM EDT [facility] RDW 17.4(H) 11.7 - 14.4 % 12/04/2024 3:55 AM EDT [facility] Platelets 61(L) 140 - 375 K/CU MM 12/04/2024 3:55 AM EDT [facility] MPV 11.1 9.4 - 12.3 fL 12/04/2024 3:55 AM EDT [facility] % Neutros 80(H) 34 - 71 % 12/04/2024 3:55 AM EDT [facility] % Lymphs 12(L) 19 - 52 % 12/04/2024 3:55 AM EDT [facility] % Monos 8 5 - 13 % 12/04/2024 3:55 AM EDT [facility] % Eos 0(L) 1 - 6 % 12/04/2024 3:55 AM EDT [facility] % Baso 0 0 - 1 % 12/04/2024 3:55 AM EDT [facility] NRBC Absolute <0.01 0 - 0.012 K/ul 12/04/2024 3:55 AM EDT [facility] # Neutros 2.58 1.56 - 6.13 K/ L 12/04/2024 3:55 AM EDT [facility] # Lymphs 0.39(L) 1.18 - 3.74 K/ L 12/04/2024 3:55 AM EDT [facility] # Monos 0.25 0.24 - 0.86 K/ L 12/04/2024 3:55 AM EDT [facility] # Eos <0.03(L) 0.04 - 0.36 K/ L 12/04/2024 3:55 AM EDT [facility] # Baso <0.03 0.01 - 0.08 K/ L 12/04/2024 3:55 AM EDT [facility] Immature Granulocytes-Re lative 0.30 0.01 - 0.43 % 12/04/2024 3:55 AM T [facility] # IG <0.03 0.00 - 0.03 K/uL 12/04/2024 3:55 AM T [facility] Blood Venipuncture / Unknown 12/04/2024 3:35 AM EDT 12/04/2024 3:41 AM EDT [facility] - 12/04/2024 3:55 AM EDT When [...] ORDERABLES Final R esult Performing Organization Address [facility] Co de Phone Number [facility] [address] [phone] * Ammonia (12/04/2024 3:35 AM EDT) Ammonia 30 18 - 72 mol/L 12/04/2024 3:57 AM EDT [facility] Blood Venipuncture / Unknown 12/04/2024 3:35 AM EDT 12/04/2024 3:41 AM EDT Timothy Bai MD LAB BLOOD ORDERABLES Final Result Performing Organization Address [facility] Phone Number [facility] [address] [phone] * Phosphorus (12/04/2024 3:34 AM EDT) Phosphorus 4.2 2.5 - 4.5 mg/dL 12/04/2024 4:04 AM EDT [facility] Blood Venipuncture / Unknown 12/04/2024 3:34 AM EDT 12/04/2024 3:41 AM EDT Kirsty Tuttle APRN LAB BLOOD ORDERABLES Final R esult Performing Organization Address [facility] Co de Phone Number [facility] [address] [phone] * (ABNORMAL) Comprehensive Metabolic Panel (12/04/2024 3:34 AM EDT) Sodium 143 136 - 145 meq/L 12/04/2024 4:04 AM EDT [facility] Potassium 3.7 3.4 - 5.1 meq/L 12/04/2024 4:04 AM EDT [facility] Chloride 115(H) 98 - 112 meq/L 12/04/2024 4:04 AM [facility] CO2 20(L) 22 - 29 meq/L 12/04/2024 4:04 AM [facility] Calcium 8.3(L) 8.4 - 10.2 mg/dL 12/04/2024 4:04 AM [facility] Glucose 203(H) 82 - 115 mg/dL 12/04/2024 4:04 AM [facility] BUN 58.6(H) 9.8 - 20.1 mg/dL 12/04/2024 4:04 AM [facility] Creatinine 3.43(H) 0.57 - 1.11 mg/dL 12/04/2024 4:04 AM [facility] BUN/Creatinine 17 8 - 20 12/04/2024 4:04 AM [facility] eGFR (mL/min/1.73m2) 15(L) >=60 mL/min/1. 73m2 12/04/2024 4:04 AM [facility] Albumin 4.2 3.5 - 5.0 g/dL 12/04/2024 4:04 AM [facility] Alkaline Phosphatase 47 40 - 150 U/L 12/04/2024 4:04 AM [facility] ALT 11 <=34 U/L 12/04/2024 4:04 AM [facility] Comment: ALT2 reagent used for testing does not contain P5P supplementation and therefore may miss ALT elevations in patients with B6 deficiency. This population may be as high as 10% in the [place], with risk factors including malabsorption, drug interactions, and alcoholic hepatitis. AST 21 11 - 34 U/L 12/04/2024 4:04 AM [facility] Comment: AST2 reagent used for testing does not contain P5P supplementation and therefore may miss AST elevations in patients with B6 deficiency. This population may be as high as 10% in the [place], with risk factors including malabsorption, drug interactions, and alcoholic hepatitis. Total Bilirubin 1.1 0.2 - 1.2 mg/dL 12/04/2024 4:04 AM [facility] Protein, Total 6.7 6.4 - 8.3 g/dL 12/04/2024 4:04 AM EDT [facility] Globulin 2.5 2.5 - 4.1 g/dL 12/04/2024 4:04 AM EDT [facility] Anion Gap 12 4 - 12 12/04/2024 4:04 AM EDT [facility] A/G Ratio 1.7 0.7 - 1.9 12/04/2024 4:04 AM EDT [facility] Osmolality Calc 307.2 mOsm/kg 4:04 AM EDT [facility] Blood Venipuncture / Unknown 12/04/2024 3:34 AM EDT 12/04/2024 3:41 AM EDT Timothy Bai MD LAB BLOOD ORDERABLES Final Result Performing Organization Address [facility] Co fl Phone Number [facility] [address] [phone] * Magnesium (12/04/2024 3:34 AM EDT) Pathologist [facility] Magnesium 2.5 1.6 - 2.6 mg/dL 12/04/2024 4:04 AM EDT [facility] Blood Venipuncture / Unknown 12/04/2024 3:34 AM EDT 12/04/2024 3:41 AM EDT Timothy Bai MD LAB BLOOD ORDERABLES Final Result Performing Organization Address [facility]/State/ZIP Co de Phone Number [facility] [address] [phone] * ECG 12 lead (12/04/2024 3:25 AM EDT) SYSTOLIC BLOOD PRESSURE (MCT) 165 mmHg GE MUSE DIASTOLIC BLOOD PRESSURE (MCT) 77 mmHg GE MUSE VENTRICULAR RATE EKG/MIN 80 BPM GE MUSE ATRIAL RATE (MCT) 80 BPM GE MUSE MI Interval 154 ms GE MUSE QRS-INTERVAL (MSEC) 76 ms GE MUSE QT Interval 380 ms GE MUSE QTC Interval 438 ms GE MUSE P [place] 47 degrees GE MUSE R AXIS (MCT) 44 degrees GE MUSE T Wave [place] -30 degrees GE MUSE [place] Diagnosis Normal sinus rhythm Low voltage QRS Nonspecific T wave abnormality Confirmed by DEYSI FOSS M.D. ([id number]) on 12/04/2024 11:05:22 AM GE MUSE 12/04/2024 3:25 AM EDT 12/04/2024 11:05 AM EDT Deysi Foss MD ECG ORDERABLES Final Result Performing Organization Address City/[facility] Co de Phone Number GE MUSE * (ABNORMAL) Hemoglobin (12/04/2024 1:04 AM EDT) [facility] Hemoglobin 9.0(L) 11.2 - 15.7 GM/DL 12/04/2024 1:30 AM EDT [facility] Blood Venipuncture / Unknown 12/04/2024 1:04 AM EDT 12/04/2024 1:20 AM EDT Timothy Bai MD LAB BLOOD ORDERABLES Final Result Performing Organization Address [facility] Co de Phone Number [facility] [address] [phone] * (ABNORMAL) Glucose, Nova Meter (12/03/2024 9:41 PM EDT) [facility] POC-GLUCOSE 146(H) 70 - 110 mg/dL 12/03/2024 9:43 PM EDT [facility] Comment: In the event of poor peripheral blood flow, venous or arterial blood should be used due to the potential of erroneous results. Protocols Followed [employer] [id number] 12/03/2024 9:43 PM EDT [facility] Blood WHOLE BLOOD / Unknown 12/03/2024 9:41 PM EDT 12/03/2024 9:43 PM EDT Narrative [facility] - 12/03/2024 9:43 PM EDT Bankruptcy Processor ID is - [id number] us Timothy Bai MD POINT OF CARE TEST ORDERAB LES Final Result Performing Organization Address [facility]/ZIP Co de Phone Number [facility] [address] [phone] * (ABNORMAL) Glucose, Nova Meter (12/03/2024 5:19 PM EDT) POC-GLUCOSE 146(H) 70 - 110 mg/dL 12/03/2024 5:24 PM EDT [facility] Comment: In the event of poor peripheral blood flow, venous or arterial blood should be used due to the potential of erroneous results. Notified Nurse RBV Bankruptcy Processor [id number] 12/03/2024 5:24 PM EDT [facility] Blood WHOLE BLOOD / Unknown 12/03/2024 5:19 PM EDT 12/03/2024 5:24 PM EDT Narrative [facility] - 12/03/2024 5:24 PM EDT Bankruptcy Processor ID is - [id number] us Timothy Bai MD POINT OF CARE TEST ORDERAB LES Final Result Performing Organization Address [facility] Co de Phone Number [facility] [address] [phone] * XR chest AP portable (12/03/2024 4:45 [...] (MCT) -11 degrees GE MUSE T Wave [place] -58 degrees GE MUSE Cisne Diagnosis Atrial fibrillation with rapid ventricular response Possible Anterolateral infarct , age undetermined Possible abberancy Confirmed by DEYSI FOSS M.D. ([id number]) on 12/03/2024 5:58:45 PM GE MUSE 12/03/2024 2:16 PM EDT 12/03/2024 5:58 PM EDT us Timothy Bai MD ECG ORDERABLES Final Resu lt GE MUSE * (ABNORMAL) Glucose, Nova Meter (12/03/2024 10:45 AM EDT) Pathologist [facility] POC-GLUCOSE 156(H) 70 - 110 mg/dL 12/03/2024 10:49 AM EDT [facility] Comment: In the event of poor peripheral blood flow, venous or arterial blood should be used due to the potential of erroneous results. Notified Nurse RBV Bankruptcy Processor [id number] 12/03/2024 10:49 AM EDT [facility] Blood WHOLE BLOOD / Unknown 12/03/2024 10:45 AM EDT 12/03/2024 10:49 AM EDT Narrative [facility] - 12/03/2024 10:49 AM EDT Bankruptcy Processor ID is - [id number] us Timothy Bai MD POINT OF CARE TEST ORDERAB LES Final Result [facility] [address] [phone] * ECG 12 lead (12/03/2024 10:39 AM EDT) VENTRICULAR RATE EKG/MIN 97 BPM GE MUSE ATRIAL RATE (MCT) 97 BPM GE MUSE MI Interval 150 ms GE MUSE QRS-INTERVAL (MSEC) 88 ms GE MUSE QT Interval 362 ms GE MUSE QTC Interval 459 ms GE MUSE P [place]ane 40 degrees GE MUSE R AXIS (MCT) 8 degrees GE MUSE T Wave [place] -8 degrees GE MUSE Cisne Diagnosis Normal sinus rhythm Normal ECG No previous ECGs available Confirmed by DEYSI FOSS M.D. ([id number]) on 12/03/2024 5:59:01 PM GE MUSE 12/03/2024 10:3 9 AM EDT 12/03/2024 5:59 PM EDT us Timothy Bai MD ECG ORDERABLES Final Resu lt GE MUSE * (ABNORMAL) CBC with automated diff (12/03/2024 8:31 AM EDT) Pathologist [facility] WBC 2.8(L) 4.0 - 10.0 K/ L 12/03/2024 9:00 AM EDT [facility] RBC 2.68(L) 3.93 - 5.22 M/ L 12/03/2024 9:00 AM EDT [facility] Hemoglobin 8.2(L) 11.2 - 15.7 GM/DL 12/03/2024 9:00 AM EDT [facility] Hematocrit 26.1(L) 34.1 - 44.9 % 12/03/2024 9:00 AM EDT [facility] MCV 97(H) 79 - 95 fL 12/03/2024 9:00 AM EDT [facility] MCH 30.6 25.6 - 32.2 pg 12/03/2024 9:00 AM EDT [facility] MCHC 31.4(L) 32.2 - 35.5 GM/DL 12/03/2024 9:00 AM EDT [facility] RDW 17.5(H) 11.7 - 14.4 % 12/03/2024 9:00 AM EDT [facility] Platelets 55(L) 140 - 375 K/CU MM 12/03/2024 9:00 AM EDT [facility] MPV 10.0 9.4 - 12.3 fL 12/03/2024 9:00 AM EDT [facility] % Neutros 79(H) 34 - 71 % 12/03/2024 9:00 AM EDT [facility] % Lymphs 13(L) 19 - 52 % 12/03/2024 9:00 AM EDT [facility] % Monos 6 5 - 13 % 12/03/2024 9:00 AM EDT [facility] % Eos 0(L) 1 - 6 % 12/03/2024 9:00 AM EDT [facility] % Baso 0 0 - 1 % 12/03/2024 9:00 AM EDT [facility] NRBC Absolute <0.01 0 - 0.012 K/ul 12/03/2024 9:00 AM EDT [facility] # Neutros 2.22 1.56 - 6.13 K/ L 12/03/2024 9:00 AM EDT [facility] # Lymphs 0.37(L) 1.18 - 3.74 K/ L 12/03/2024 9:00 AM EDT [facility] # Monos 0.18(L) 0.24 - 0.86 K/ L 12/03/2024 9:00 AM EDT [facility] # Eos <0.03(L) 0.04 - 0.36 K/ L 12/03/2024 9:00 AM EDT [facility] # Baso <0.03 0.01 - 0.08 K/ L 12/03/2024 9:00 AM EDT [facility] Immature Granulocytes-Re lative 0.70(H) 0.01 - 0.43 % 12/03/2024 9:00 AM EDT [facility] # IG <0.03 0.00 - 0.03 K/uL 12/03/2024 9:00 AM EDT [facility] Blood Venipuncture / Unknown 12/03/2024 8:31 AM EDT 12/03/2024 8:40 AM EDT Narrative [facility] - 12/03/2024 9:00 AM [...] BLOOD ORDERABLES Final Result Performing Organization Address [facility]/ZIP Co de Phone Number [facility] [address] [place] [address] * Creatine Kinase (CK) (12/03/2024 7:39 AM EDT) Total CK 55 29 - 168 U/L 12/03/2024 6:19 PM EDT [facility] Blood Venipuncture / Unknown 12/03/2024 7:39 AM EDT 12/03/2024 5:52 PM EDT us Laura Cervantes MD LAB BLOOD ORDERABLES Final Re sult [facility] [address] [phone] * Ammonia (12/03/2024 7:39 AM EDT) Ammonia 36 18 - 72 mol/L 12/03/2024 7:56 AM EDT [facility] Blood Venipuncture / Unknown 12/03/2024 7:39 AM EDT 12/03/2024 7:45 AM EDT Narrative [facility] - 12/03/2024 7:56 AM EDT Specimen slightly hemolyzed us Timothy Bai MD LAB BLOOD ORDERABLES Final Result [facility] [address] [place] [id number], [facility] [phone] * (ABNORMAL) Comprehensive Metabolic Panel (12/03/2024 7:39 AM EDT) Sodium 147(H) 136 - 145 meq/L 12/03/2024 8:05 AM EDT [facility] Potassium 4.1 3.4 - 5.1 meq/L 12/03/2024 8:05 AM EDT [facility] Chloride 119(H) 98 - 112 meq/L 12/03/2024 8:05 AM EDT [facility] CO2 20(L) 22 - 29 meq/L 12/03/2024 8:05 AM EDT [facility] Calcium 8.3(L) 8.4 - 10.2 mg/dL 12/03/2024 8:05 AM EDT [facility] Glucose 145(H) 82 - 115 mg/dL 12/03/2024 8:05 AM EDT [facility] BUN 53.7(H) 9.8 - 20.1 mg/dL 12/03/2024 8:05 AM EDT [facility] Creatinine 3.48(H) 0.57 - 1.11 mg/dL 12/03/2024 8:05 AM EDT [facility] BUN/Creatinine 15 8 - 20 12/03/2024 8:05 AM EDT [facility] eGFR (mL/min/1.73m2) 14(L) >=60 mL/min/1. 73m2 12/03/2024 8:05 AM EDT [facility] Albumin 4.4 3.5 - 5.0 g/dL 12/03/2024 8:05 AM EDT [facility] Alkaline Phosphatase 49 40 - 150 U/L 12/03/2024 8:05 AM EDT [facility] ALT 7 <=34 U/L 12/03/2024 8:05 AM EDT [facility] Comment: ALT2 reagent used for testing does not contain P5P supplementation and therefore may miss ALT elevations in patients with B6 deficiency. This population may be as high as 10% in the [place], with risk factors including malabsorption, drug interactions, and alcoholic hepatitis. AST 21 11 - 34 U/L 12/03/2024 8:05 AM EDT [facility] Comment: AST2 reagent used for testing does not contain P5P supplementation and therefore may miss AST elevations in patients with B6 deficiency. This population may be as high as 10% in the [place], with risk factors including malabsorption, drug interactions, and alcoholic hepatitis. Total Bilirubin 1.1 0.2 - 1.2 mg/dL 12/03/2024 8:05 AM EDT [facility] Protein, Total 6.8 6.4 - 8.3 g/dL 12/03/2024 8:05 AM EDT [facility] Globulin 2.4(L) 2.5 - 4.1 g/dL 12/03/2024 8:05 AM EDT [facility] Anion Gap 12 4 - 12 12/03/2024 8:05 AM EDT [facility] A/G Ratio 1.8 0.7 - 1.9 12/03/2024 8:05 AM EDT [facility] Osmolality Calc 309.7 mOsm/kg 8:05 AM EDT [facility] Blood Venipuncture / Unknown 12/03/2024 7:39 AM EDT 12/03/2024 7:46 AM EDT us Timothy Bai MD LAB BLOOD ORDERABLES Final Result [facility] [address] [phone] * Magnesium (12/03/2024 7:39 AM EDT) Magnesium 2.5 1.6 - 2.6 mg/dL 12/03/2024 8:05 AM EDT [facility] Blood Venipuncture / Unknown 12/03/2024 7:39 AM EDT 12/03/2024 7:46 AM EDT us Timothy Bai MD LAB BLOOD ORDERABLES Final Result [facility] 1 [place] [address], [facility] [phone] * (ABNORMAL) Glucose, Nova Meter (12/03/2024 5:13 AM EDT) POC-GLUCOSE 142(H) 70 - 110 mg/dL 12/03/2024 5:15 AM EDT [facility] Comment: In the event of poor peripheral blood flow, venous or arterial blood should be used due to the potential of erroneous results. Protocols Followed Bankruptcy Processor [id number] 12/03/2024 5:15 AM EDT [facility] Blood WHOLE BLOOD / Unknown 12/03/2024 5:13 AM EDT 12/03/2024 5:15 AM EDT Narrative [facility] - 12/03/2024 5:15 AM EDT Bankruptcy Processor ID is - [id number] us Timothy Bai MD POINT OF CARE TEST ORDERAB LES Final Result [facility] 1 [place] [address], [facility] [phone] * (ABNORMAL) Glucose, Nova Meter (12/03/2024 1:12 AM EDT) POC-GLUCOSE 168(H) 70 - 110 mg/dL 12/03/2024 1:13 AM EDT [facility] Comment: In the event of poor peripheral blood flow, venous or arterial blood should be used due to the potential of erroneous results. Protocols Followed Bankruptcy Processor [id number] 12/03/2024 1:13 AM EDT [facility] Blood WHOLE BLOOD / Unknown 12/03/2024 1:12 AM EDT 12/03/2024 1:13 AM EDT Narrative [facility] - 12/03/2024 1:13 AM EDT Bankruptcy Processor ID is - [id number] us Timothy Bai MD POINT OF CARE TEST ORDERAB LES Final Result Performing Organization Address City/[facility]/ZIP Co de Phone Number [facility] [address] [phone] * (ABNORMAL) Glucose, Nova Meter (12/03/2024 1:10 AM EDT) [facility] POC-GLUCOSE 164(H) 70 - 110 mg/dL 12/03/2024 1:12 AM EDT [facility] Comment: In the event of poor peripheral blood flow, venous or arterial blood should be used due to the potential of erroneous results. Protocols Followed Bankruptcy Processor [id number] 12/03/2024 1:12 AM EDT [facility] Blood WHOLE BLOOD / Unknown 12/03/2024 1:10 AM EDT 12/03/2024 1:12 AM EDT Narrative [facility] - 12/03/2024 1:12 AM EDT Bankruptcy Processor ID is - [id number] us Timothy Bai MD POINT OF CARE TEST ORDERAB LES Final Result Performing Organization Address [facility]/ZIP Co de Phone Number [facility] [address] [phone] * (ABNORMAL) Hemoglobin (12/02/2024 11:06 PM EDT) [facility] Hemoglobin 8.9(L) 11.2 - 15.7 GM/DL 12/02/2024 11:18 PM EDT [facility] Blood Venipuncture / Unknown 12/02/2024 11:06 PM EDT 12/02/2024 11:15 PM EDT us Denilson Hodgson DO LAB BLOOD ORDERABLES Final Res ult [facility] [address] [phone] * (ABNORMAL) Glucose, Nova Meter (12/02/2024 8:06 PM EDT) POC-GLUCOSE 144(H) 70 - 110 mg/dL 12/02/2024 8:08 PM EDT [facility] Comment: In the event of poor peripheral blood flow, venous or arterial blood should be used due to the potential of erroneous results. Protocols Followed Bankruptcy Processor [id number] 12/02/2024 8:08 PM EDT [facility] Blood WHOLE BLOOD / Unknown 12/02/2024 8:06 PM EDT 12/02/2024 8:08 PM EDT Narrative [facility] - 12/02/2024 8:08 PM EDT Bankruptcy Processor ID is - [id number] Timothy Bai MD POINT OF CARE TEST ORDERAB LES Final Result Performing Organization Address [facility]/ZIP Co de Phone Number [facility] [address] [phone] * (ABNORMAL) Hemoglobin (12/02/2024 6:03 PM EDT) Hemoglobin 9.1(L) 11.2 - 15.7 GM/DL 12/02/2024 6:24 PM EDT [facility] Blood Venipuncture / Unknown 12/02/2024 6:03 PM EDT 12/02/2024 6:19 PM EDT Timothy Bai MD LAB BLOOD ORDERABLES Final Result [facility] [address] [phone] * (ABNORMAL) Glucose, Nova Meter (12/02/2024 5:18 PM EDT) POC-GLUCOSE 128(H) 70 - 110 mg/dL 12/02/2024 5:21 PM EDT [facility] Comment: In the event of poor peripheral blood flow, venous or arterial blood should be used due to the potential of erroneous results. Notified Nurse RBV Bankruptcy Processor [id number] 12/02/2024 5:21 PM EDT [facility] Blood WHOLE BLOOD / Unknown 12/02/2024 5:18 PM EDT 12/02/2024 5:20 PM EDT [facility] - 12/02/2024 5:21 PM EDT Bankruptcy Processor ID is - [id number] us Timothy Bai MD POINT OF CARE TEST ORDERAB LES Final Result Performing Organization Address City/[facility]/ZIP Co de Phone Number [facility] [address] [phone] * Transfuse RBC (12/02/2024 5:03 PM EDT) Timothy Bai MD FS_MODEL_IP_BLOOD TRANSFUS ION ORDERABLES Final Result * Transfuse RBC: 1 Units (12/02/2024 5:03 PM EDT) Timothy Bai MD FS_MODEL_IP_BLOOD TRANSFUS ION ORDERABLES Final Result * (ABNORMAL) Glucose, Nova Meter (12/02/2024 12:51 PM EDT) [facility] POC-GLUCOSE 112(H) 70 - 110 mg/dL 12/02/2024 12:53 PM EDT [facility] Comment: In the event of poor peripheral blood flow, venous or arterial blood should be used due to the potential of erroneous results. Notified Nurse RBV Bankruptcy Processor [id number] 12/02/2024 12:53 PM EDT [facility] Blood WHOLE BLOOD / Unknown 12/02/2024 12:51 PM EDT 12/02/2024 12:53 PM EDT [facility] - 12/02/2024 12:53 PM EDT Bankruptcy Processor ID is - [id number] us Timothy Bai MD POINT OF CARE TEST ORDERAB LES Final Result Performing Organization Address City/[facility]/ZIP Co de Phone Number [facility] [address] [phone] * CT bone marrow biopsy (12/02/2024 12:24 [...] Pancytopenia. ATTENDING RADIOLOGIST: Dr. Haseeb Gil. PHYSICIAN INTERNET SECURITY SPECIALIST: Sandra Ramsey PA-C PROCEDURE: After informed consent [...] Pancytopenia. ATTENDING RADIOLOGIST: Dr. Haseeb Gil. PHYSICIAN INTERNET SECURITY SPECIALIST: Sandra Ramsey PA-C PROCEDURE: After informed consent [...] by Sandra Ramsey PA-C. Laura Batista MD [facility] [place] ORDER[place]LES Final Result * [facility] BONE MARROW SMEAR, ASPIRATION, AND STAIN (12/02/2024 12:06 PM EDT) AP RESULT See Note: [facility] Comment: [facility] [address] [place] [address] or [phone] Joe Carlos M.D., Format Proofreader PATIENT NAME LABORATORY NO. MARY OLIVA. [id number] [facility] AGE SEX SSN CLIENT REF # [id number] F [id number] [address] [place] [address] REQUESTING Aleksandr ATTENDING Aleksandr. COPY TOLAURA PICHARDO DATE COLLECTED DATE RECEIVED DATE REPORTED 12/02/2024 12/02/2024 12/06/2024 ADDENDUM PRESENT ADDENDUM: Cytogenetics shows a normal female karyotype, 46,XX[20]. The original diagnosis remains unchanged. Verified by Heydi Mak M.D., MPH on 12/13/2024 Professional interpretation rendered by Heydi Mak M.D., MPH at [facility], [address] [place] [address]. DIAGNOSIS: PERIPHERAL SMEAR , BONE MARROW ASPIRATION [...] CD38, CD45, CD56, CD57, CD117, CD123, HLA-DR, Resaca, and Lambda. These tests use analyte specific [...] rendered by Heydi Mak M.D., MPH at [facility], [address] [place] [address]. GROSS DESCRIPTION: A. Received 1 peripheral blood smear slide for review. B. Received 5 bone marrow aspirate smear slides for review. 4 additional bone marrow aspirate smear slides made at [facility]. C. Received in a purple top [...] BY: Heydi Mak M.D., MPH CPT CODES: [id number], [id number], 10117, [id number], [id number], 02683, [id number], [id number] Bone Marrow BONE MARROW STRUCTURE / Unknown 12/02/2024 12:06 PM EDT us Laura Batista MD PATHOLOGY/CYTOLOGY ORDERABLES Edited Result - Final [facility] [address] [place] [address] * Prepare RBC: 1 Units (12/02/2024 9:36 AM EDT) Issue Date/Time [id number] [facility] BLOOD [facility] (MS) Product Identification Red Blood Cells [facility] ([place]) Product Code [id number] [facility] ([place]) Status Information Transfused [facility] ([place]) Unit Number [id number] [facility] BLOOD [facility] (MS) Blood Type 5100 [facility] (MS) Cross Match Results Compatible [facility] (MS) us Timothy Bai MD FS_MODEL_IP_BLOOD BANK PRO DUCT ORDERABLES Final Result [facility] (MS) [address] [place] [address], [facility] [phone] * (ABNORMAL) Hemoglobin and hematocrit (12/02/2024 7:40 AM EDT) Hemoglobin 7.4(L) 11.2 - 15.7 GM/DL 12/02/2024 9:43 AM EDT [facility] Hematocrit 23.4(L) 34.1 - 44.9 % 12/02/2024 9:43 AM EDT [facility] Blood Venipuncture / Unknown 12/02/2024 7:40 AM EDT 12/02/2024 7:47 AM EDT Timothy Bai MD LAB BLOOD ORDERABLES Final Result Performing Organization Address [facility] Co de Phone Number [facility] [address] [phone] * (ABNORMAL) Hemoglobin (12/02/2024 7:40 AM EDT) Hemoglobin 7.3(L) 11.2 - 15.7 GM/DL 12/02/2024 7:52 AM EDT [facility] Blood Venipuncture / Unknown 12/02/2024 7:40 AM EDT 12/02/2024 7:47 AM EDT Timothy Bai MD LAB BLOOD ORDERABLES Final Result Performing Organization Address City/[facility]/ZIP Co de Phone Number [facility] 1 [place] [address], [facility] [phone] * (ABNORMAL) Glucose, Nova Meter (12/02/2024 5:04 AM EDT) POC-GLUCOSE 115(H) 70 - 110 mg/dL 12/02/2024 5:06 AM EDT [facility] Comment: In the event of poor peripheral blood flow, venous or arterial blood should be used due to the potential of erroneous results. Notified Nurse RBV Bankruptcy Processor [id number] 12/02/2024 5:06 AM EDT [facility] Blood WHOLE BLOOD / Unknown 12/02/2024 5:04 AM EDT 12/02/2024 5:06 AM EDT [facility] - 12/02/2024 5:06 AM EDT Bankruptcy Processor ID is - [id number] Timothy Bai MD POINT OF CARE TEST ORDERAB LES Final Result Performing Organization Address [facility] Co de Phone Number [facility] [address] [phone] * (ABNORMAL) Ammonia (12/02/2024 3:38 AM EDT) Ammonia 74(H) 18 - 72 mol/L 12/02/2024 5:20 AM EDT [facility] Blood Venipuncture / Unknown 12/02/2024 3:38 AM EDT 12/02/2024 4:47 AM EDT [facility] - 12/02/2024 5:20 AM EDT Specimen slightly hemolyzed Timothy Bai MD LAB BLOOD ORDERABLES Final Result Performing Organization Address [facility] Co de Phone Number [facility] [address] [phone] * (ABNORMAL) Comprehensive Metabolic Panel (12/02/2024 3:38 AM EDT) Sodium 146(H) 136 - 145 meq/L 12/02/2024 5:30 AM EDT [facility] Potassium 4.2 3.4 - 5.1 meq/L 12/02/2024 5:30 AM EDT [facility] Chloride 118(H) 98 - 112 meq/L 12/02/2024 5:30 AM EDT [facility] CO2 19(L) 22 - 29 meq/L 12/02/2024 5:30 AM EDT [facility] Calcium 7.9(L) 8.4 - 10.2 mg/dL 12/02/2024 5:30 AM [facility] Glucose 107 82 - 115 mg/dL 12/02/2024 5:30 AM [facility] BUN 55.1(H) 9.8 - 20.1 mg/dL 12/02/2024 5:30 AM [facility] Creatinine 3.55(H) 0.57 - 1.11 mg/dL 12/02/2024 5:30 AM [facility] BUN/Creatinine 16 8 - 20 12/02/2024 5:30 AM [facility] eGFR (mL/min/1.73m2) 14(L) >=60 mL/min/1. 73m2 12/02/2024 5:30 AM [facility] Albumin 3.6 3.5 - 5.0 g/dL 12/02/2024 5:30 AM [facility] Alkaline Phosphatase 49 40 - 150 U/L 12/02/2024 5:30 AM [facility] ALT 8 <=34 U/L 12/02/2024 5:30 AM [facility] Comment: ALT2 reagent used for testing does not contain P5P supplementation and therefore may miss ALT elevations in patients with B6 deficiency. This population may be as high as 10% in the [place], with risk factors including malabsorption, drug interactions, and alcoholic hepatitis. AST 32 11 - 34 U/L 12/02/2024 5:30 AM [facility] Comment: AST2 reagent used for testing does not contain P5P supplementation and therefore may miss AST elevations in patients with B6 deficiency. This population may be as high as 10% in the [place], with risk factors including malabsorption, drug interactions, and alcoholic hepatitis. Total Bilirubin 0.9 0.2 - 1.2 mg/dL 12/02/2024 5:30 AM [facility] Protein, Total 6.1(L) 6.4 - 8.3 g/dL 12/02/2024 5:30 AM [facility] Globulin 2.5 2.5 - 4.1 g/dL 12/02/2024 5:30 AM [facility] Anion Gap 13(H) 4 - 12 12/02/2024 5:30 AM EDT [facility] A/G Ratio 1.4 0.7 - 1.9 12/02/2024 5:30 AM EDT [facility] Osmolality Calc 306.2 mOsm/kg 5:30 AM EDT [facility] Blood Venipuncture / Unknown 12/02/2024 3:38 AM EDT 12/02/2024 4:48 AM EDT Narrative [facility] - 12/02/2024 5:30 AM EDT Specimen slightly hemolyzed Timothy Bai MD LAB BLOOD ORDERABLES Final Result [facility] [address] [phone] * Magnesium (12/02/2024 3:38 AM EDT) Magnesium 2.5 1.6 - 2.6 mg/dL 12/02/2024 5:30 AM EDT [facility] Blood Venipuncture / Unknown 12/02/2024 3:38 AM EDT 12/02/2024 4:48 AM EDT Narrative [facility] - 12/02/2024 5:30 AM EDT Specimen slightly hemolyzed Timothy Bai MD LAB BLOOD ORDERABLES Final Result [facility] [address] [phone] * (ABNORMAL) CBC - Hemogram (SJ-BKR) (12/02/2024 3:38 AM EDT) WBC 3.0(L) 4.0 - 10.0 K/ L 12/02/2024 5:08 AM EDT [facility] RBC 2.43(L) 3.93 - 5.22 M/ L 12/02/2024 5:08 AM EDT [facility] Hemoglobin 7.6(L) 11.2 - 15.7 GM/DL 12/02/2024 5:08 AM EDT [facility] Hematocrit 24.2(L) 34.1 - 44.9 % 12/02/2024 5:08 AM EDT [facility] MCV 100(H) 79 - 95 fL 12/02/2024 5:08 AM EDT [facility] MCH 31.3 25.6 - 32.2 pg 12/02/2024 5:08 AM EDT [facility] MCHC 31.4(L) 32.2 - 35.5 GM/DL 12/02/2024 5:08 AM EDT [facility] RDW 17.1(H) 11.7 - 14.4 % 12/02/2024 5:08 AM EDT [facility] Platelets 57(L) 140 - 375 K/CU MM 12/02/2024 5:08 AM EDT [facility] LABORATORY MPV 10.5 9.4 - 12.3 fL 12/02/2024 5:08 AM EDT [facility] Blood Venipuncture / Unknown 12/02/2024 3:38 AM EDT 12/02/2024 4:47 AM EDT Timothy Bai MD LAB BLOOD ORDERABLES Final Result [facility] [address] [phone] * (ABNORMAL) Hemoglobin (12/02/2024 12:04 AM EDT) Hemoglobin 7.7(L) 11.2 - 15.7 GM/DL 12/02/2024 12:18 AM EDT [facility] Blood Venipuncture / Unknown 12/02/2024 12:04 AM EDT 12/02/2024 12:16 AM EDT Timothy Bai MD LAB BLOOD ORDERABLES Final Result [facility] [address] [phone] * (ABNORMAL) Glucose, Nova Meter (12/01/2024 7:34 PM EDT) POC-GLUCOSE 128(H) 70 - 110 mg/dL 12/01/2024 7:35 PM EDT [facility] Comment: In the event of poor peripheral blood flow, venous or arterial blood should be used due to the potential of erroneous results. Notified Nurse RBV Bankruptcy Processor [id number] 12/01/2024 7:35 PM EDT [facility] Blood WHOLE BLOOD / Unknown 12/01/2024 7:34 PM EDT 12/01/2024 7:35 PM EDT Narrative [facility] - 12/01/2024 7:35 PM EDT Bankruptcy Processor ID is - [id number] us Timothy Bai MD POINT OF CARE TEST ORDERAB LES Final Result Performing Organization Address [facility] Co de Phone Number [facility] [address] [phone] * (ABNORMAL) Glucose, Nova Meter (12/01/2024 4:25 PM EDT) [facility] POC-GLUCOSE 115(H) 70 - 110 mg/dL 12/01/2024 4:26 PM EDT [facility] Comment: In the event of poor peripheral blood flow, venous or arterial blood should be used due to the potential of erroneous results. Notified Nurse RBV Bankruptcy Processor [id number] 12/01/2024 4:26 PM EDT [facility] Blood WHOLE BLOOD / Unknown 12/01/2024 4:25 PM EDT 12/01/2024 4:26 PM EDT Narrative [facility] - 12/01/2024 4:26 PM EDT Bankruptcy Processor ID is - [id number] us Timothy Bai MD POINT OF CARE TEST ORDERAB LES Final Result Performing Organization Address [facility] Co de Phone Number [facility] [address] [phone] * (ABNORMAL) Hemoglobin (12/01/2024 3:33 PM EDT) Pathologist [facility] Hemoglobin 8.0(L) 11.2 - 15.7 GM/DL 12/01/2024 4:03 PM EDT [facility] Blood Venipuncture / Unknown 12/01/2024 3:33 PM EDT 12/01/2024 4:00 PM EDT us Timothy Bai MD LAB BLOOD ORDERABLES Final Result [facility] [address] [phone] * Glucose, Nova Meter (12/01/2024 10:32 AM EDT) [facility] POC-GLUCOSE 100 70 - 110 mg/dL 12/01/2024 10:33 AM EDT [facility] Comment: In the event of poor peripheral blood flow, venous or arterial blood should be used due to the potential of erroneous results. Notified Nurse RBV Bankruptcy Processor [id number] 12/01/2024 10:33 AM EDT [facility] Blood WHOLE BLOOD / Unknown 12/01/2024 10:32 AM EDT 12/01/2024 10:33 AM EDT Narrative [facility] - 12/01/2024 10:33 AM EDT Bankruptcy Processor ID is - [id number] us Timothy Bai MD POINT OF CARE TEST ORDERAB LES Final Result [facility] [address] [phone] * Transfuse RBC (12/01/2024 9:18 AM EDT) us Denilson Hodgson DO FS_MODEL_IP_BLOOD TRANSFUSION ORDERABLES Final Result * Transfuse RBC: 1 Units (12/01/2024 9:18 AM EDT) us Denilson Hodgson DO FS_MODEL_IP_BLOOD TRANSFUSION ORDERABLES Final Result * Glucose, Nova Meter (12/01/2024 8:12 AM EDT) Pathologist [facility] POC-GLUCOSE 103 70 - 110 mg/dL 12/01/2024 8:14 AM EDT [facility] Comment: In the event of poor peripheral blood flow, venous or arterial blood should be used due to the potential of erroneous results. Protocols Followed Bankruptcy Processor [id number] 12/01/2024 8:14 AM EDT [facility] Blood WHOLE BLOOD / Unknown 12/01/2024 8:12 AM EDT 12/01/2024 8:14 AM EDT Narrative [facility] - 12/01/2024 8:14 AM EDT Bankruptcy Processor ID is - [id number] us Timothy Bai MD POINT OF CARE TEST ORDERAB LES Final Result [facility] [address] [phone] * Type and Screen (12/01/2024 7:08 AM EDT) Pathologist [facility] ABO/Rh O Positive 12/01/2024 4:53 AM EDT [facility] ([place]) Antibody Screen Negative 12/01/2024 4:53 AM EDT [facility] (MS) HISTCHK HIST CHECK PERFORMED 12/01/2024 4:53 AM EDT [facility] (MS) Blood Venipuncture / Unknown 12/01/2024 7:08 AM EDT 12/01/2024 7:15 AM EDT us Denilson Hodgson DO [facility] TEST ORDERABLES Final Result [facility] (MS) [address] [place] [address], [facility] [phone] * Glucose, Nova Meter (12/01/2024 5:37 AM EDT) POC-GLUCOSE 107 70 - 110 mg/dL 12/01/2024 5:39 AM EDT [facility] Comment: In the event of poor peripheral blood flow, venous or arterial blood should be used due to the potential of erroneous results. Notified Nurse RBV Bankruptcy Processor [id number] 12/01/2024 5:39 AM EDT [facility] Blood WHOLE BLOOD / Unknown 12/01/2024 5:37 AM EDT 12/01/2024 5:39 AM EDT Narrative [facility] - 12/01/2024 5:39 AM EDT Bankruptcy Processor ID is - [id number] us Timothy Bai MD POINT OF CARE TEST ORDERAB LES Final Result Performing Organization Address City/[facility]/ZIP Co de Phone Number [facility] [address] [place] [address], [facility] [phone] * Prepare RBC: 1 Units (12/01/2024 4:53 AM EDT) Issue Date/Time [id number] [facility] (MS) Product Identification Red Blood Cells [facility] (MS) Product Code [id number] [facility] (MS) Status Information Transfused [facility] (MS) Unit Number [id number] YUSEF [facility] (MS) Blood Type 5100 [facility] (MS) Cross Match Results Compatible [facility] (MS) us Denilson Hodgson DO FS_MODEL_IP_BLOOD BANK PRODUCT ORDERABLES Final Result [facility] (MS) [address] [place] [address], [facility] [phone] * ABO/RH Confirmation/Retype (12/01/2024 4:06 AM EDT) RETYPE O Positive 12/01/2024 5:15 AM EDT [facility] (MS) Comment:[id number] Blood Venipuncture / Unknown 12/01/2024 4:06 AM EDT 12/01/2024 5:14 AM EDT Timothy Bai MD [facility] TEST ORDERA BLES Final Result Performing Organization Address [facility]/ZIP Co de Phone Number [facility] ([place]) [address] [phone] * (ABNORMAL) Ammonia (12/01/2024 4:06 AM EDT) Ammonia 75(H) 18 - 72 mol/L 12/01/2024 4:49 AM EDT [facility] Blood Venipuncture / Unknown 12/01/2024 4:06 AM EDT 12/01/2024 4:13 AM EDT us Timothy Bai MD LAB BLOOD ORDERABLES Final Result Performing Organization Address [facility]/ZIP Co de Phone Number [facility] [address] [place] [address] * (ABNORMAL) CBC - Hemogram (SJ-BKR) (12/01/2024 4:06 AM EDT) WBC 1.7(LL) 4.0 - 10.0 K/ L 12/01/2024 4:43 AM EDT [facility] RBC 2.15(L) 3.93 - 5.22 M/ L 12/01/2024 4:43 AM EDT [facility] Hemoglobin 6.7(L) 11.2 - 15.7 GM/DL 12/01/2024 4:43 AM EDT [facility] Hematocrit 21.6(L) 34.1 - 44.9 % 12/01/2024 4:43 AM EDT [facility] MCV 101(H) 79 - 95 fL 12/01/2024 4:43 AM EDT [facility] MCH 31.2 25.6 - 32.2 pg 12/01/2024 4:43 AM EDT [facility] MCHC 31.0(L) 32.2 - 35.5 GM/DL 12/01/2024 4:43 AM EDT [facility] RDW 16.2(H) 11.7 - 14.4 % 12/01/2024 4:43 AM EDT [facility] Platelets 54(L) 140 - 375 K/CU MM 12/01/2024 4:43 AM EDT [facility] MPV 10.6 9.4 - 12.3 fL 12/01/2024 4:43 AM EDT [facility] Blood Venipuncture / Unknown 12/01/2024 4:06 AM EDT 12/01/2024 4:12 AM EDT us Timothy Bai MD LAB BLOOD ORDERABLES Final Result Performing Organization Address City/State/[facility] Co de Phone Number [facility] [address] [place] [address] * (ABNORMAL) Comprehensive Metabolic Panel (12/01/2024 4:05 AM EDT) Sodium 145 136 - 145 meq/L 12/01/2024 5:01 AM EDT [facility] Potassium 4.2 3.4 - 5.1 meq/L 12/01/2024 5:01 AM EDT [facility] Chloride 116(H) 98 - 112 meq/L 12/01/2024 5:01 AM EDT [facility] CO2 20(L) 22 - 29 meq/L 12/01/2024 5:01 AM EDT [facility] Calcium 8.0(L) 8.4 - 10.2 mg/dL 12/01/2024 5:01 AM EDT [facility] Glucose 120(H) 82 - 115 mg/dL 12/01/2024 5:01 AM EDT [facility] BUN 68.3(H) 9.8 - 20.1 mg/dL 12/01/2024 5:01 AM EDT [facility] Creatinine 4.13(H) 0.57 - 1.11 mg/dL 12/01/2024 5:01 AM [facility] BUN/Creatinine 17 8 - 20 12/01/2024 5:01 AM [facility] eGFR (mL/min/1.73m2) 12(L) >=60 mL/min/1. 73m2 12/01/2024 5:01 AM [facility] Albumin 2.8(L) 3.5 - 5.0 g/dL 12/01/2024 5:01 AM [facility] Alkaline Phosphatase 61 40 - 150 U/L 12/01/2024 5:01 AM [facility] ALT 15 <=34 U/L 12/01/2024 5:01 AM [facility] Comment: ALT2 reagent used for testing does not contain P5P supplementation and therefore may miss ALT elevations in patients with B6 deficiency. This population may be as high as 10% in the [place], with risk factors including malabsorption, drug interactions, and alcoholic hepatitis. AST 26 11 - 34 U/L 12/01/2024 5:01 AM [facility] Comment: AST2 reagent used for testing does not contain P5P supplementation and therefore may miss AST elevations in patients with B6 deficiency. This population may be as high as 10% in the [place], with risk factors including malabsorption, drug interactions, and alcoholic hepatitis. Total Bilirubin 0.5 0.2 - 1.2 mg/dL 12/01/2024 5:01 AM [facility] Protein, Total 5.7(L) 6.4 - 8.3 g/dL 12/01/2024 5:01 AM [facility] Globulin 2.9 2.5 - 4.1 g/dL 12/01/2024 5:01 AM [facility] Anion Gap 13(H) 4 - 12 12/01/2024 5:01 AM [facility] A/G Ratio 1.0 0.7 - 1.9 12/01/2024 5:01 AM [facility] Osmolality Calc 309.8 mOsm/kg 5:01 AM [facility] Blood Venipuncture / Unknown 12/01/2024 4:05 AM EDT 12/01/2024 4:13 AM EDT Timothy Bai MD LAB BLOOD ORDERABLES Final Result Performing Organization Address City/[facility]/ZIP Co de Phone Number [facility] [address] [phone] * (ABNORMAL) Magnesium (12/01/2024 4:05 AM EDT) Pathologist [facility] Magnesium 2.7(H) 1.6 - 2.6 mg/dL 12/01/2024 4:57 AM EDT [facility] Blood Venipuncture / Unknown 12/01/2024 4:05 AM EDT 12/01/2024 4:13 AM EDT Timothy Bai MD LAB BLOOD ORDERABLES Final Result Performing Organization Address [facility] Phone Number [facility] [address] [phone] * Glucose, Nova Meter (11/30/2024 7:38 PM EDT) [facility] POC-GLUCOSE 106 70 - 110 mg/dL 11/30/2024 7:39 PM EDT [facility] Comment: In the event of poor peripheral blood flow, venous or arterial blood should be used due to the potential of erroneous results. Notified Nurse RBV Bankruptcy Processor [id number] 11/30/2024 7:39 PM EDT [facility] Blood WHOLE BLOOD / Unknown 11/30/2024 7:38 PM EDT 11/30/2024 7:39 PM EDT Narrative [facility] - 11/30/2024 7:39 PM EDT Bankruptcy Processor ID is - [id number] us Timothy Bai MD POINT OF CARE TEST ORDERAB LES Final Result Performing Organization Address [facility] Co fl Phone Number [facility] [address] [phone] * Glucose, Nova Meter (11/30/2024 6:22 PM EDT) POC-GLUCOSE 107 70 - 110 mg/dL 11/30/2024 6:25 PM EDT [facility] Comment:In the event of poor peripheral blood flow, venous or arterial blood should be used due to the potential of erroneous results. Bankruptcy Processor [id number] 11/30/2024 6:25 PM EDT [facility] Blood WHOLE BLOOD / Unknown 11/30/2024 6:22 PM EDT 11/30/2024 6:25 PM EDT Narrative [facility] - 11/30/2024 6:25 PM EDT Bankruptcy Processor ID is - [id number] us Timothy Bai MD POINT OF CARE TEST ORDERAB LES Final Result [facility] [address] [phone] * Ultrasound renal limited (11/30/2024 4:19 PM [...] dictated by SABINE Yang. us Destiney Llanes FABRICATION DEPARTMENT SUPERVISOR IMG US ORDERABLES Final Res ult * [...] Ascites ATTENDING PHYSICIAN: Dr. Haseeb Gil PHYSICIAN INTERNET SECURITY SPECIALIST: Gabriel Velasco PA-C FINDINGS: After informed consent [...] Ascites ATTENDING PHYSICIAN: Dr. Haseeb Gil PHYSICIAN INTERNET SECURITY SPECIALIST: Gabriel Velasco PA-C FINDINGS: After informed consent [...] See Comment g/dL 12/01/2024 7:10 AM EDT [facility] BODY FLUID TYPE Peritoneal 12/01/2024 7:10 AM EDT [facility] Body Fluid PERITONEAL FLUID / Unknown 11/30/2024 4:03 PM EDT 12/01/2024 6:52 AM EDT Narrative [facility] - 12/01/2024 7:10 AM EDT This test has been modified from the manager enrollment's instructions and its performance characteristics were determined by the laboratory. The reference intervals and other method performance specifications are unavailable for this test. It is recommended to interpret body fluid concentrations in comparison with the corresponding serum or plasma concentrations and to integrate test results into the clinical context. us Timothy Bai MD BODY FLUIDS AND STOOLS ORD ERABLES Final Result [facility] [address] [phone] * Glucose, body fluid (11/30/2024 4:03 PM EDT) Glucose, Body Fluid 107 See Comment mg/dL 12/01/2024 7:10 AM EDT [facility] BODY FLUID TYPE Peritoneal 12/01/2024 7:10 AM EDT [facility] Body Fluid PERITONEAL FLUID / Unknown 11/30/2024 4:03 PM EDT 12/01/2024 6:52 AM EDT Narrative [facility] - 12/01/2024 7:10 AM EDT This test has been modified from the manager enrollment's instructions and its performance characteristics were determined by the laboratory. The reference intervals and other method performance specifications are unavailable for this test. It is recommended to interpret body fluid concentrations in comparison with the corresponding serum or plasma concentrations and to integrate test results into the clinical context. us Timothy Bai MD BODY FLUIDS AND STOOLS ORD ERABLES Final Result [facility] [address] [place] [address] * Body Fluid/CSF - Path Review (SJ) (11/30/2024 4:03 PM EDT) SENT TO PATHOLOGY FOR REVIEW Yes 12/03/2024 6:54 AM EDT [facility] Scan Result Mesothelial cells. MD German 12/02/2024 12/03/2024 6:54 AM EDT [facility] Peritoneal Fluid BODY FLUID / Unknown 11/30/2024 4:03 PM EDT 11/30/2024 4:33 PM EDT us Huey Hurtado MD BODY FLUIDS AND STOOLS ORDERABLE S Final Result [address] [phone] * DIFFERENTIAL, BODY FLUID (11/30/2024 4:03 PM EDT) Neutrophils Fluid 5 0 - 25 % 025 8:49 PM EDT [facility] Lymphocytes Fluid 46 % 025 8:49 PM EDT [facility] Unidentified Mononuclear Cells BF 49 0 - 0 % 11/30/2024 8:49 PM EDT [facility] Peritoneal Fluid BODY FLUID / Unknown 11/30/2024 4:03 PM EDT 11/30/2024 4:33 PM EDT us Huey Hurtado MD BODY FLUIDS AND STOOLS ORDERABLE S Final Result [facility] [address] [phone] * [facility] Former Cytology (11/30/2024 4:03 PM EDT) AP RESULT See Note: [facility]Y [facility] Comment: [facility] [address] [place] [address] or [phone] Joe Carlos M.D., Format Proofreader PATIENT NAME LABORATORY NO. [id number] MARY GAR. [id number] AGE SEX SSN CLIENT REF # [facility] 64 1960 F [id number] 1 [facility] REQUESTING Aleksandr ATTENDING Ale[place]and[place] [address] HUEY HURTADO DATE COLLECTED DATE RECEIVED DATE REPORTED 11/30/2024 12/01/2024 12/02/2024 DIAGNOSIS: PERITONEAL FLUID: Negative for malignant cells. MICROSCOPIC DESCRIPTION: Scattered mesothelial cells and chronic inflammatory cells are present. Professional interpretation rendered by John Sanchez M.D., F.C.A.P. at [facility], [address] [place] [address]. CLINICAL HISTORY: Melena Anasarca Acute renal failure SPECIMENS SUBMITTED: PERITONEAL FLUID GROSS SPECIMEN DESCRIPTION: 40 ccs of hazy, light yellow fluid, scant sediment, received in fixative ThinPrep slides prepared. Cell block has been examined. ENTRY LEVEL CIVIL ENGINEER: SVITLANA HERNANDEZ (ASCP) REVIEWED, DIAGNOSED AND ELECTRONICALLY SIGNED BY: John Sanchez M.D., F.C.A.P. CPT CODES: 15411, [id number] Peritoneal Fluid BODY FLUID / Unknown 11/30/2024 4:03 PM EDT us Huey Hurtado MD PATHOLOGY/CYTOLOGY ORDERABLES Fi nal Result [facility] [address] * Anaerobic Culture (11/30/2024 4:03 PM EDT) Result No Anaerobic growth 12/05/2024 6:34 AM EDT [facility] Peritoneal Fluid BODY FLUID / Unknown 11/30/2024 4:03 PM EDT 11/30/2024 4:34 PM EDT Narrative [facility] - 12/05/2024 6:34 AM EDT Specimen Description: peritoneal fluid us Huey Hurtado MD MICROBIOLOGY - GENERAL ORDERABLE S Final Result Performing Organization Address [facility]/ZIP Co de Phone Number [facility] [address] [place] [address] * Body Fluid Culture + Gram Stain (11/30/2024 4:03 PM EDT) Result No growth 12/03/2024 9:07 AM EDT [facility] Gram Stain Result No organisms seen 12/03/2024 9:07 AM EDT [facility] Gram Stain Result No cells seen 12/03/2024 9:07 AM EDT [facility] Peritoneal Fluid BODY FLUID / Unknown 11/30/2024 4:03 PM EDT 11/30/2024 4:34 PM EDT Narrative [facility] - 12/03/2024 9:07 AM EDT Specimen Description: peritoneal fluid us Huey Hurtado MD MICROBIOLOGY - GENERAL ORDERABLE S Final Result Performing Organization Address [facility]/ZIP Co de Phone Number [facility] [address] [phone] * (ABNORMAL) Body fluid cell count with differential (11/30/2024 4:03 PM EDT) Appearance Cloudy(A) Clear 11/30/2024 8:49 PM EDT [facility] Color Yellow 11/30/2024 8:49 PM EDT [facility] BODY FLUID TYPE Peritoneal 11/30/2024 8:49 PM EDT [facility] Auto WBC/Nucleated Cells BF 85 /uL 11/30/2024 8:49 PM EDT [facility] Comment: Please refer to specific WBC/Nucleated Cell Count Body Fluid reference ranges below: For Pleural: 0-1000 Peritoneal: 0-1000 Pericardial:0-1000 Synovial: 0-200 Auto RBC BF <3,000 /uL 11/30/2024 8:49 PM EDT [facility] Comment: Please refer to specific RBC Cell Count Body Fluid reference ranges below: Pleural: 0-10,000 Peritoneal: 0-10,000 Pericardial:0-10,000 Synovial:0-30 Peritoneal Fluid BODY FLUID / Unknown 11/30/2024 4:03 PM EDT 11/30/2024 4:33 PM EDT Narrative [facility] - 11/30/2024 8:49 PM EDT There is normally no readily obtainable pleural, peritoneal and pericardial fluid, hence normal elements for these potential fluids are not defined. Huey Hurtado MD BODY FLUIDS AND STOOLS ORDERABLE S Final Result [facility] [address] [place] [address] * Lactate dehydrogenase (LDH), body fluid (11/30/2024 4:03 PM EDT) LDH, Fluid 71 See Comment U/L 11/30/2024 6:19 PM EDT [facility] BODY FLUID TYPE Peritoneal 11/30/2024 6:19 PM EDT [facility] Peritoneal Fluid BODY FLUID / Unknown 11/30/2024 4:03 PM EDT 11/30/2024 4:33 PM EDT Narrative [facility] - 11/30/2024 6:19 PM EDT This test has been modified from the manager enrollment's instructions and its performance characteristics were determined [...] ORDERABLE S Final Result Performing Organization Address [facility] Co de Phone Number [facility] [address] [phone] * Protein / creatinine ratio, urine (11/30/2024 11:35 AM EDT) Creatinine, Ur 62.00 47.00 - 110.00 mg/dL 11/30/2024 12:36 PM EDT [facility] Protein Creatinine Ratio 0.19 <=0.20 11/30/2024 12:36 PM EDT [facility] Protein, Urine 12 1 - 14 mg/dL 11/30/2024 12:36 PM EDT [facility] Urine 11/30/2024 11:3 5 AM EDT 11/30/2024 12:15 PM EDT us Hill Boo MD URINE ORDERABLES Final Result Performing Organization Address [facility] Co de Phone Number [facility] [address] [phone] * Urea Nitrogen, random urine (11/30/2024 11:35 AM EDT) Urea Nitrogen, Ur 305 mg/dL 11/30/2024 12:36 PM EDT [facility] Comment:Reference Range not established Urine 11/30/2024 11:3 5 AM EDT 11/30/2024 12:15 PM EDT us Hill Boo MD URINE ORDERABLES Final Result Performing Organization Address [facility]/ZIP Co de Phone Number [facility] [address] [phone] * Sodium, random urine (11/30/2024 11:35 AM EDT) Sodium Urine 83 See Comment meq/L 11/30/2024 12:36 PM EDT [facility] Comment:Reference Range not established Urine 11/30/2024 11:3 5 AM EDT 11/30/2024 12:15 PM EDT us Hill Boo MD URINE ORDERABLES Final Result Performing Organization Address [facility] Co de Phone Number [facility] [address] [phone] * (ABNORMAL) Urinalysis Microscopic Only (11/30/2024 11:35 AM EDT) WBC, UA 21-50(A) None Seen /HPF 11/30/2024 12:06 PM EDT [facility] RBC, UA 0-2(A) None Seen /HPF 11/30/2024 12:06 PM EDT [facility] Bacteria, UA 1+(A) None Seen, Trace 11/30/2024 12:06 PM EDT [facility] Mucus 1+(A) None Seen 11/30/2024 12:06 PM EDT [facility] SQUAMOUS EPITHELIAL 3-5(A) None Seen /HPF 11/30/2024 12:06 PM EDT [facility] HYALINE CASTS 21-50(A) None Seen /LPF 11/30/2024 12:06 PM EDT [facility] Urine URINE SPECIMEN COLLECTION, CLEAN CATCH / Unknown 11/30/2024 11:35 AM EDT 11/30/2024 11:41 AM EDT us Destiney Llanes APRN URINE ORDERABLES Final Resu lt Performing Organization Address [facility]/ZIP Co de Phone Number [facility] [address] [phone] * Urine Culture (11/30/2024 11:35 AM EDT) Result Recollect Specimen - 3 or more organisms suggests contamination 12/01/2024 6:49 AM EDT [facility] Urine URINE SPECIMEN COLLECTION, CLEAN CATCH / Unknown 11/30/2024 11:35 AM EDT 11/30/2024 11:41 AM EDT Destiney Llanes FABRICATION DEPARTMENT SUPERVISOR MICROBIOLOGY - GENERAL ORDE YAKELIN Final Result [facility] [address] [id number], [facility] [phone] * (ABNORMAL) Urinalysis, Reflex Microscopic and Culture If Indicated (11/30/2024 11:35 AM EDT) Color, UA Light Yellow 11/30/2024 12:06 PM EDT [facility] Clarity, UA Turbid(A) Clear 11/30/2024 12:06 PM EDT [facility] Specific [place], UA 1.011 1.005 - 1.030 11/30/2024 12:06 PM EDT [facility] pH, UA 5.0(L) 6.0 - 8.0 11/30/2024 12:06 PM EDT [facility] Leukocytes, UA 500 Félix/uL(A) Negative 11/30/2024 12:06 PM EDT [facility] Nitrite, UA Negative Negative 11/30/2024 12:06 PM EDT [facility] Protein, UA Negative Negative 11/30/2024 12:06 PM EDT [facility] Glucose, UA Normal Normal 11/30/2024 12:06 PM EDT [facility] Ketones, UA Negative Negative 11/30/2024 12:06 PM EDT [facility] Bilirubin, UA Negative Negative 11/30/2024 12:06 PM EDT [facility] Blood, UA Negative Negative 11/30/2024 12:06 PM EDT [facility] Urobilinogen, UA Normal Normal 11/30/2024 12:06 PM EDT [facility] Specimen Source Urine, Clean Catch 11/30/2024 12:06 PM EDT [facility] Urine URINE SPECIMEN COLLECTION, CLEAN CATCH / Unknown 11/30/2024 11:35 AM EDT 11/30/2024 11:41 AM EDT us Destiney Llanes APRN URINE ORDERABLES Final Resu lt [facility] [address] [phone] * XR chest AP portable (11/30/2024 11:29 [...] us Destiney Llanes APRN IMG DIAGNOSTIC [facility]AGING [facility] Final Result * (ABNORMAL) Monoclonal Protein Study, Expanded Panel(SENDOUT) (11/30/2024 11:01 AM EDT) [facility] Total Protein, Serum 6.2(L) 6.3 - 8.2 g/dL 12/03/2024 12:57 PM EDT [facility] Albumin 2.71(L) 3.75 - 5.01 g/dL 12/03/2024 12:57 PM EDT [facility] Alpha 1 Globulin 0.34 0.19 - 0.46 g/dL 12/03/2024 12:57 PM EDT [facility] Alpha 2 Globulin 0.38(L) 0.48 - 1.05 g/dL 12/03/2024 12:57 PM EDT [facility] Beta Globulin 1.30(H) 0.48 - 1.10 g/dL 12/03/2024 12:57 PM EDT [facility] Gamma 1.47 0.62 - 1.51 g/dL 12/03/2024 12:57 PM EDT [facility] Immunofixation MAEGAN Done 12/03/2024 12:57 PM [...] [facility] [place] Qnt Free Light Chains 173.10(H) 3.30 - 19.40 mg/L 12/03/2024 12:57 PM EDT [facility] Comment: INTERPRETIVE INFORMATION: [place] Qnt Free Light Chains Undetected antigen excess [...] conjunction with other clinical and laboratory findings. [place]/Lambda Free Light Chain Ratio 1.40 0.26 - 1.65 12/03/2024 12:57 PM EDT [facility] SPEP/MAEGAN Interpretation See Note 12/03/2024 12:57 PM EDT [facility] Comment: Restricted band in the beta region [...] Serum See Note 12/03/2024 12:57 PM EDT [facility] Comment: Authorized individuals can access the [facility] Enhanced Report with an [facility] Connect account using the following link. Your local lab can assist you in obtaining the patient report if you don't have a Connect account. [email or web address] Performed By: [facility] [address] [place] [address] Policy Analyst: Lalo Mortensen MD, PhD CLIA Number: [id number] Blood Venipuncture / Unknown 11/30/2024 11:01 AM EDT 11/30/2024 12:17 PM EDT Hill Boo MD LAB BLOOD ORDERABLES Final Resu lt [facility] [address] [place] [address], [facility] [phone] * Alpha Fetoprotein Tumor Marker(SENDOUT) (11/30/2024 11:01 AM EDT) Alpha Fetoprotein Tumor Marker 2 0 - 9 ng/mL 12/01/2024 3:41 PM EDT [facility] Comment: INTERPRETIVE INFORMATION: Alpha Fetoprotein Tumor Marker The [employer] [place] Access DxI AFP method is used. Results [...] reference intervals for this test in the [facility] Laboratory Test Directory ([facility]). Performed By: [facility] [address] [place] [address] Policy Analyst: Lalo Mortensen MD, PhD CLIA Number: [id number] Blood Venipuncture / Unknown 11/30/2024 11:01 AM EDT 11/30/2024 11:06 AM EDT us Destiney Llanes APRN LAB BLOOD ORDERABLES Final Result [facility] [employer] [address] [place] [address] * Glucose, Nova Meter (11/30/2024 10:46 AM EDT) [facility] POC-GLUCOSE 102 70 - 110 mg/dL 11/30/2024 10:47 AM EDT [facility] Comment: In the event of poor peripheral blood flow, venous or arterial blood should be used due to the potential of erroneous results. Notified Nurse RBV Bankruptcy Processor [id number] 11/30/2024 10:47 AM EDT [facility] Blood WHOLE BLOOD / Unknown 11/30/2024 10:46 AM EDT 11/30/2024 10:47 AM EDT Narrative [facility] - 11/30/2024 10:47 AM EDT Bankruptcy Processor ID is - [id number] us Timothy Bai MD POINT OF CARE TEST ORDERAB LES Final Result [facility] [address] [phone] * (ABNORMAL) Vitamin D, 25-Hydroxy (11/30/2024 8:20 AM EDT) Vitamin D 25-Hydroxy 22.0(L) 30 - 80 ng/mL 11/30/2024 9:48 AM EDT [facility] Blood Venipuncture / Unknown 11/30/2024 8:20 AM EDT 11/30/2024 9:08 AM EDT Timothy Bai MD LAB BLOOD ORDERABLES Final Result [facility] [address] [phone] * Hemoglobin A1c (11/30/2024 8:20 AM EDT) Hemoglobin A1C 4.9 4.0 - 5.6 % 11/30/2024 9:17 AM EDT [facility] Comment: Hemoglobin A1C levels are related to mean glucose during the preceding 2-3 months. Less than 7% demonstrates glycemic control in diabetic patients. Hemoglobin AlC % Suggested Diagnosis > or = 6.5 Diabetic 5.7 - 6.4 Prediabetic <5.7 Non-diabetic eAVG Glucose 93.93 70 - 126 mg/dL 11/30/2024 9:17 AM EDT [facility] Blood Venipuncture / Unknown 11/30/2024 8:20 AM EDT 11/30/2024 9:07 AM EDT Huey Hurtado MD LAB BLOOD ORDERABLES Final Resul t [facility] [address] [phone] * ECHO COMPLETE (DOPPLER / COLOR) WO CONTRAST (11/30/2024 7:50 AM EDT) Anatomical Region Laterality Modality Heart Vascular Ultraso und 11/30/2024 7:25 AM EDT Narrative 11/30/2024 10:46 AM EDT TRANSTHORACIC ECHOCARDIOGRAPHY REPORT Demographics Patient Name: RIN JONES : 1960 Age: 64 year(s) Corporate ID Number: [id number] Gender Female Highway Safety Engineer: Giovanna Rock Height: 67 inches [facility] Referring Physician: HUEY HURTADO Weight: 225 pounds Interpreting JESSICA RAYMOND MD BMI: 35.24 kg/m^2 Physician: Date of Service: 11/30/2024 Blood Pressure: 118/59 mmHg Room Number: 579 Type of Study: TTE procedure: ECHO COMPLETE (DOPPLER / COLOR) W OR WO CONTRAST. Patient Status: Routine [facility] History/Tech Notes: Indication: shortness [...] 1.35 m/s E/A ratio: 0.97 m/s Volume xtwopmdqx678.99 LV length: 8.51 cm ml Volume youblqgh89.96 ml LVOT diameter: 1.79 cm Normal sized [...] Valve TR velocity: 2.51 m/s TR gradient: 25.90952 mmHg Estimated RAP: 3 mmHg RVSP: 28.12 [...] 1960 Age: 64 year(s) Corporate ID Number: [id number] Gender Female Highway Safety Engineer: Giovanna Rock Height: 67 inches [facility] Referring Physician: HUEY HURTADO Weight: 225 pounds Interpreting JESSICA RAYMOND MD BMI: 35.24 kg/m^2 Physician: Date of Service: 11/30/2024 Blood Pressure: 118/59 mmHg Room Number: 579 Type of Study: TTE procedure: ECHO COMPLETE (DOPPLER / COLOR) W OR WO CONTRAST. Patient Status: Routine IP Study Location: [facility] Quality: Adequate visualization History/Tech Notes: Indication: [...] 1.35 m/s E/A ratio: 0.97 m/s Volume synrrobfk174.99 LV length: 8.51 cm ml Volume xowkpoms70.96 ml LVOT diameter: 1.79 cm Normal sized [...] Valve TR velocity: 2.51 m/s TR gradient: 25.85910 mmHg Estimated RAP: 3 mmHg RVSP: 28.12 [...] - 110 mg/dL 11/30/2024 5:17 AM EDT [facility] Comment: In the event of poor peripheral blood flow, venous or arterial blood should be used due to the potential of erroneous results. Protocols Followed Bankruptcy Processor [id number] 11/30/2024 5:17 AM EDT [facility] Blood WHOLE BLOOD / Unknown 11/30/2024 5:13 AM EDT 11/30/2024 5:17 AM EDT Narrative [facility] - 11/30/2024 5:17 AM EDT Bankruptcy Processor ID is - [id number] us Albert Garcia MD POINT OF CARE TEST ORDERABLES Fi nal Result Performing Organization Address [facility]/ZIP Co de Phone Number [facility] [address] [phone] * Blood Culture (11/30/2024 3:42 AM EDT) Result No growth in 5 days 12/05/2024 5:01 AM EDT [facility] Blood ENTIRE RIGHT UPPER ARM / Unknown Venipuncture / Unknown 11/30/2024 3:42 AM EDT 11/30/2024 4:09 AM EDT us Huey Hurtado MD MICROBIOLOGY - GENERAL ORDERABLE S Final Result [facility] [address] [phone] * Folate, Serum (11/30/2024 3:40 AM EDT) Folate 7.0 7.0 - 31.4 ng/mL 11/30/2024 6:08 PM EDT [facility] Blood Venipuncture / Unknown 11/30/2024 3:40 AM EDT 11/30/2024 4:09 AM EDT us Laura Batista MD LAB BLOOD ORDERABLES Final Res ult [facility] [address] [phone] * (ABNORMAL) Iron and TIBC (11/30/2024 3:40 AM EDT) Iron 63 50 - 170 ug/dL 11/30/2024 6:13 PM EDT [facility] TIBC 183(L) 250 - 435 ug/dL 11/30/2024 6:13 PM EDT [facility] % Saturation 34 % 11/30/2024 6:13 PM EDT [facility] UIBC 120 11/30/2024 6:13 PM EDT [facility] Blood Venipuncture / Unknown 11/30/2024 3:40 AM EDT 11/30/2024 4:09 AM EDT us Laura Batista MD LAB BLOOD ORDERABLES Final Res ult [facility] [address] [phone] * Ferritin (11/30/2024 3:40 AM EDT) Ferritin 168.51 4.63 - 204.00 ng/mL 11/30/2024 6:08 PM EDT [facility] Blood Venipuncture / Unknown 11/30/2024 3:40 AM EDT 11/30/2024 4:09 AM EDT us Laura Batista MD LAB BLOOD ORDERABLES Final Res ult Performing Organization Address [facility] Co de Phone Number [facility] [address] [phone] * (ABNORMAL) Lactate dehydrogenase (LDH) (11/30/2024 3:40 AM EDT) LDH 261(H) 125 - 220 U/L 11/30/2024 12:18 PM EDT [facility] Blood Venipuncture / Unknown 11/30/2024 3:40 AM EDT 11/30/2024 4:09 AM EDT us Hill Boo MD LAB BLOOD ORDERABLES Final Resu lt Performing Organization Address [facility] Co de Phone Number [facility] [address] [phone] * (ABNORMAL) Creatine Kinase (CK) (11/30/2024 3:40 AM EDT) Total CK 356(H) 29 - 168 U/L 11/30/2024 12:18 PM EDT [facility] Blood Venipuncture / Unknown 11/30/2024 3:40 AM EDT 11/30/2024 4:09 AM EDT us Hill Boo MD LAB BLOOD ORDERABLES Final Resu lt Performing Organization Address [facility] Co de Phone Number [facility] [address] [phone] * (ABNORMAL) Uric acid (11/30/2024 3:40 AM EDT) Uric Acid 11.2(H) 2.5 - 6.2 mg/dL 11/30/2024 12:18 PM EDT [facility] Blood Venipuncture / Unknown 11/30/2024 3:40 AM EDT 11/30/2024 4:09 AM EDT Hill Boo MD LAB BLOOD ORDERABLES Final Resu lt Performing Organization Address [facility]/ZIP Co de Phone Number [facility] [address] [phone] * Vitamin B12 (11/30/2024 3:40 AM EDT) Pathologist [facility] Vitamin B12 678 213 - 816 pg/mL 11/30/2024 8:10 AM EDT [facility] Blood Venipuncture / Unknown 11/30/2024 3:40 AM EDT 11/30/2024 4:09 AM EDT Timothy Bai MD LAB BLOOD ORDERABLES Final Result Performing Organization Address [facility]/ZIP Co de Phone Number [facility] [address] [phone] * Iron, serum (11/30/2024 3:40 AM EDT) [facility] Iron 64 50 - 170 ug/dL 11/30/2024 8:10 AM EDT [facility] Blood Venipuncture / Unknown 11/30/2024 3:40 AM EDT 11/30/2024 4:09 AM EDT Timothy Bai MD LAB BLOOD ORDERABLES Final Result Performing Organization Address City/[facility] Co de Phone Number [facility] [address] [phone] * (ABNORMAL) CBC - Hemogram (SJ-BKR) (11/30/2024 3:40 AM EDT) Pathologist [facility] WBC 1.9(LL) 4.0 - 10.0 K/ L 11/30/2024 4:25 AM EDT [facility] RBC 2.63(L) 3.93 - 5.22 M/ L 11/30/2024 4:25 AM EDT [facility] Hemoglobin 8.2(L) 11.2 - 15.7 GM/DL 11/30/2024 4:25 AM EDT [facility] Hematocrit 26.3(L) 34.1 - 44.9 % 11/30/2024 4:25 AM EDT [facility] MCV 100(H) 79 - 95 fL 11/30/2024 4:25 AM EDT [facility] MCH 31.2 25.6 - 32.2 pg 11/30/2024 4:25 AM EDT [facility] MCHC 31.2(L) 32.2 - 35.5 GM/DL 11/30/2024 4:25 AM EDT [facility] RDW 16.2(H) 11.7 - 14.4 % 11/30/2024 4:25 AM EDT [facility] Platelets 64(L) 140 - 375 K/CU MM 11/30/2024 4:25 AM EDT [facility] MPV 10.4 9.4 - 12.3 fL 11/30/2024 4:25 AM EDT [facility] Blood Venipuncture / Unknown 11/30/2024 3:40 AM EDT 11/30/2024 4:10 AM EDT us Huey Hurtado MD LAB BLOOD ORDERABLES Final Resul t Performing Organization Address City/State/[facility] Co de Phone Number [facility] [address] [phone] * (ABNORMAL) Comprehensive Metabolic Panel (11/30/2024 3:40 AM EDT) Sodium 144 136 - 145 meq/L 11/30/2024 5:07 AM EDT [facility] Potassium 4.6 3.4 - 5.1 meq/L 11/30/2024 5:07 AM EDT [facility] Chloride 115(H) 98 - 112 meq/L 11/30/2024 5:07 AM EDT [facility] CO2 20(L) 22 - 29 meq/L 11/30/2024 5:07 AM [facility] Calcium 8.3(L) 8.4 - 10.2 mg/dL 11/30/2024 5:07 AM [facility] Glucose 86 82 - 115 mg/dL 11/30/2024 5:07 AM [facility] BUN 74.2(H) 9.8 - 20.1 mg/dL 11/30/2024 5:07 AM [facility] Creatinine 4.15(H) 0.57 - 1.11 mg/dL 11/30/2024 5:07 AM [facility] BUN/Creatinine 18 8 - 20 11/30/2024 5:07 AM [facility] eGFR (mL/min/1.73m2) 12(L) >=60 mL/min/1. 73m2 11/30/2024 5:07 AM [facility] Albumin 2.2(L) 3.5 - 5.0 g/dL 11/30/2024 5:07 AM [facility] Alkaline Phosphatase 83 40 - 150 U/L 11/30/2024 5:07 AM [facility] ALT 17 <=34 U/L 11/30/2024 5:07 AM [facility] Comment: ALT2 reagent used for testing does not contain P5P supplementation and therefore may miss ALT elevations in patients with B6 deficiency. This population may be as high as 10% in the [place], with risk factors including malabsorption, drug interactions, and alcoholic hepatitis. AST 43(H) 11 - 34 U/L 11/30/2024 5:07 AM [facility] Comment: AST2 reagent used for testing does not contain P5P supplementation and therefore may miss AST elevations in patients with B6 deficiency. This population may be as high as 10% in the [place], with risk factors including malabsorption, drug interactions, and alcoholic hepatitis. Total Bilirubin 0.8 0.2 - 1.2 mg/dL 11/30/2024 5:07 AM [facility] Protein, Total 6.5 6.4 - 8.3 g/dL 11/30/2024 5:07 AM [facility] Globulin 4.3(H) 2.5 - 4.1 g/dL 11/30/2024 5:07 AM EDT [facility] Anion Gap 14(H) 4 - 12 11/30/2024 5:07 AM EDT [facility] A/G Ratio 0.5(L) 0.7 - 1.9 11/30/2024 5:07 AM EDT [facility] Osmolality Calc 308.1 mOsm/kg 5:07 AM EDT [facility] Blood Venipuncture / Unknown 11/30/2024 3:40 AM EDT 11/30/2024 4:09 AM EDT us Huey Hurtado MD LAB BLOOD ORDERABLES Final Resul t Performing Organization Address [facility] Co de Phone Number [facility] [address] [phone] * Procalcitonin (11/30/2024 3:40 AM EDT) Procalcitonin 0.26 See Comment ng/mL 11/30/2024 5:07 AM EDT [facility] Comment: Sepsis comment <0.5 [...] ORDERABLES Final Resul t Performing Organization Address [facility] Co de Phone Number [facility] [address] [phone] * Blood Culture (11/30/2024 3:40 AM EDT) Result No growth in 5 days 12/05/2024 5:01 AM EDT [facility] Blood ENTIRE LEFT UPPER ARM / Unknown Venipuncture / Unknown 11/30/2024 3:40 AM EDT 11/30/2024 4:09 AM EDT us Huey Hurtado MD MICROBIOLOGY - GENERAL ORDERABLE S Final Result Performing Organization Address [facility]/ZIP Co de Phone Number [facility] [address] [phone] * Ammonia (11/30/2024 3:40 AM EDT) Ammonia 59 18 - 72 mol/L 11/30/2024 4:51 AM EDT [facility] Blood Venipuncture / Unknown 11/30/2024 3:40 AM EDT 11/30/2024 4:10 AM EDT us Huey Hurtado MD LAB BLOOD ORDERABLES Final Resul t Performing Organization Address [facility] Co de Phone Number [facility] [address] [phone] * (ABNORMAL) Magnesium (11/30/2024 3:40 AM EDT) Magnesium 2.7(H) 1.6 - 2.6 mg/dL 11/30/2024 5:07 AM EDT [facility] Blood Venipuncture / Unknown 11/30/2024 3:40 AM EDT 11/30/2024 4:09 AM EDT us Huey Hurtado MD LAB BLOOD ORDERABLES Final Resul t Performing Organization Address [facility] Co de Phone Number [facility] [address] [phone] * Lactic Acid with reflex (11/30/2024 3:40 AM EDT) Lactic Acid Level (mmol/L) 0.9 0.5 - 2.2 mmol/L 11/30/2024 5:37 AM EDT [facility] Blood Venipuncture / Unknown 11/30/2024 3:40 AM EDT 11/30/2024 4:10 AM EDT us Huey Hurtado MD LAB BLOOD ORDERABLES Final Resul t Performing Organization Address [facility] Co de Phone Number [facility] [address] [phone] * aPTT (11/30/2024 3:40 AM EDT) aPTT 27.7 22.0 - 32.0 seconds 11/30/2024 4:32 AM EDT [facility] Blood Venipuncture / Unknown 11/30/2024 3:40 AM EDT 11/30/2024 4:10 AM EDT us Huey Hurtado MD LAB BLOOD ORDERABLES Final Resul t Performing Organization Address [facility] Co de Phone Number [facility] [address] [phone] * (ABNORMAL) Prothrombin time/INR (11/30/2024 3:40 AM EDT) Protime 12.9(H) 9.0 - 12.0 seconds 11/30/2024 4:32 AM EDT [facility] INR 1.17(H) 0.80 - 1.10 11/30/2024 4:32 AM EDT [facility] Comment: Recommended therapeutic ranges [...] MD LAB BLOOD ORDERABLES Final Resul t [facility] [address] [place] [address], [facility] [phone] * EKG-SCANNED (11/30/2024) Narrative 11/30/2024 Ordered by [...] Blood Sugar is less than 180 beteween 3025-4436, DO NOT give corrective insulin unless otherwise [...] at 2100 2144 (Given - Provider: Alberto Bernal, DAYANARA) 2030 (Given - Provider: Jamal Lopez, DAYANARA) [...] DAYANARA)1515 (Given - Provider: Mary Lou Sidhu, RN)2144 (Given - Provider: Alberto Bernal RN) 0903 (Given - Provider: Olimpia Mcmillan, DAYANARA)1420 (Given - Provider: Olimpia Mcmillan, DAYANARA)2031 (Given - Provider: Jamal Lopez, DAYANARA) 0930 (Given - Provider: Olimpia Mcmillan, DAYANARA)1608 (Given - Provider: Olimpia Mcmillan RN) insulin lispro (HUMALOG, ADMELOG) injection 0-18 Units 0-18 Units 4 times daily (before meals and nightly), subcutaneous, First dose on Fri11/30/24 at 0730, If Blood Sugar is less than 180 beteween 5442-6633, DO NOT give corrective insulin unless otherwise [...] Lou Sidhu, DAYANARA)2204 (Given - Provider: Alberto Bernal, DAYANARA) 0637 (Not Given - Provider: Jamal Lopez RN - Reason: Order parameters not met)1314 (Given - Provider: Olimpia Mcmillan RN)1648 (Given - Provider: Olimpia Mcmillan, DAYANARA)2038 (Given - Provider: Jamal Lopez, DAYANARA) 0647 (Not Given - Provider: Jamal Lopez [...] Bernal RN) 901 (Given - Provider: Olimpia Mcmillan RN)2031 (Given [...] RN)2143 (Given - Provider: Alberto Bernal RN) 09 (Given - Provider: Olimpia Mcmillan RN)2030 (Given - Provider: Jamal Lopez, DAYANARA) 0931 (Given - Provider: Olimpia Mcmillan, DAYANARA) rifAXIMin (XIFAXAN) tablet 550 mg 550 mg 2 times daily, oral, First dose on Tu11/30/24 at 1130 0840 (Given - Provider: Mary Lou Sidhu RN)214 (Given - Provider: Alberto Bernal RN) 09 (Given - Provider: Olimpia Mcmillan RN)2030 (Given - Provider: Jamal Lopez RN) 0930 (Given - Provider: Olimpia Mcmillan RN) sodium chloride 0.9 % infusion(Linked Group 1) [...] flush documented in this encounter Care Teams Scheme Technician Relationship Specialty Start Date End Date [facility] Connection, [facility]Doc [facility] [place] [address] PCP - General 11/30/24 12/13/24 documented as of this encounter
--- OUTSIDE RECORDS SUMMARY | 2025-01-11 13:52 | XMS_ITS | Encounter Summary ---
Author Organization [facility] Address [address] [place] [address] Care Team Providers Care Can Carrier Name Role Phone [facility], [facility]Doc Primary Care Provider Reason for Visit * Reason Onset Date Comments Appointment 12/06/2024 Encounter Details Date Type Department Care Team (Late st Contact Info) Description 12/06/2024 Telephone [facility] - [place] [address] [place] [address] Mimi Moreno, RN Appointment Social [...] Do you speak a language other than [place] at [facility]? No 11/30/2024 Do you want [...] Description 01/27/2025 10:45 AM EDT Office Visit [facility] Electrophysiology [address] [place] [id number] Quincy Foss MD [address] [place] [address] [address] [place] [address] documented as of this encounter Visit Diagnoses Not on filedocumented in this encounter Care Teams Can Carrier Relationship Specialty Start Date End Date [facility], [facility] [place] [address] PCP - General 11/30/24 12/13/24 documented as of this encounter
--- OUTSIDE RECORDS SUMMARY | 2025-01-11 13:52 | XMS_ITS | Encounter Summary ---
Author Organization Healthcare Address [address] 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, [...] (mild) Microalbuminuria Proteinuria 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, unspecified vessel or lesion type (CMS/HCC) documented in this encounter Additional Health Concerns Assessment Noted Time A fall risk assessment has been complete d for the patient 01/02/2022 1:17 PM EDT A Body Mass Index follow-up plan has been documented for the patient 11/13/2022 11:41 AM EDT documented as of this encounter Care Teams Thread Spooler Relationship Specialty Start Date End Date Larry Bedolla MD [address] [facility] [place] [phone] PCP - General 12/08/20 Sary Brannon APRN [address] [place] [address] [place] [address] Referring Physician Gastroenterology 01/07/25 documented as of this encounter
--- OUTSIDE RECORDS SUMMARY | 2025-01-11 13:53 | XMS_ITS | Data Portability ---
Author Organization [facility] Address [address] [place] [address] Assessment No assessment recorded. Plan of Treatment Reminders Order Date Submit Date Provider Last Modified By Organization Details Last Modified Time Details Appointments None recorded. Lab microalbumi n/creatinin e, mass ratio, urine 2023 024 [facility] (Lab), [address] [facility] [address], [place], [address], 5 10:22:00 HbA1c (hemoglobin A1c), blood 2023 024 [facility] (Lab), [address], [place], [address], 5 10:21:59 CMP, serum or plasma 2023 024 [facility] (Lab), [address] [facility] [address], [place], [address], 5 10:21:59 CBC w/ auto diff 2023 024 [facility] (Lab), [address], [place], [address], 5 10:21:59 lipid panel, serum 2023 024 [facility] (Lab), [address], [place], [address], 5 10:22:00 CBC w/ auto diff 2022 023 ABE Leroycojillian, [address], [address], [place], [address], 3 13:06:54 HbA1c (hemoglobin A1c), blood 2022 023 ABESAM Leroydanilo, [address], [address], [place], [address], 3 13:06:57 C-peptide, serum 2022 023 A[facility] Labdanilo, [address], [address], [place], [address], 3 13:06:56 CMP, serum or plasma 2022 023 ABE Leroydanilo, [address], [address], [place], [address], 3 13:06:55 microalbumi n/creatinin e, mass ratio, urine 2022 023 ABE Leroydanilo, [address], [address], [place], [address], 3 13:06:56 CMP, serum or plasma 2022 023 ABE Leroydanilo, [address], [address], [place], [address], 3 11:08:27 lipid panel, serum 2022 023 A[facility] Labdanilo, [address], [address], [place], [address], 3 11:08:28 HbA1c (hemoglobin A1c), blood 2022 023 A[facility] Labdanilo, [address], [address], [place], [address], 3 11:08:29 CBC w/ auto diff 2022 023 ABE Garza, [address], [address], [place], [address], 3 11:08:27 HbA1c (hemoglobin A1c), blood 2021 022 A[facility] Garza, [address], [address], [place], [address], 11:07:51 CMP, serum or plasma 2021 022 ABE Garza, [address], [place], [address], 2 11:07:49 CBC w/ auto diff 2021 022 ABE Garza, [address], [place], [address], 2 11:07:48 lipid panel, serum 2021 022 ABE Garza, [address], [place], [address], 2 11:07:50 albumin/cre atinine, mass ratio, urine 2021 022 A[facility] Garza, [address], [place], [address], 2 11:07:50 C-peptide, serum 2021 022 A[facility] Labdanilo, [address], [place], [address], 11:07:51 Referral None recorded. Procedures None recorded. Surgeries None recorded. Imaging None recorded. Medication Orders Mounjaro 2.5 mg/0.5 mL subcutaneou s pen injector 2023 024 [facility], [address], [place], [id number], 4 16:05:05 Glucagon Emergency Kit 1 mg solution for injection 2022 023 [facility], [address] [place] [address] [place], [id number], 3 13:31:18 Fiasp U-100 Insulin 100 unit/mL subcutaneou s solution 2022 023 [facility], [address] [place], [place] [address], [id number], 3 13:35:16 [facility] 500 [facility] [address] [place], [place] [address], [id number], 3 11:31:54 Patient TargetsNo targets recorded. Patient Instructions Encounter Date Encounter Id Patient Instructions Last Modified By Organization Details Last Modified Time 04/22/2023 [id number] learning about healthy weight efryman Not available 04/22/2023 10:44:48 body mass index: care instructions efrysonora Not available 04/22/2023 10:44:48 Reason for Referral None Reported. Results Created Date Observation Date Name Description Value Unit Range Abnormal Flag Note LastModifiedBy Organization Detail LastModifiedTime 05/29/2005/29/2022 CBC WITH DIFFE RENTI AL/PL ATELE T WBC 3.3 x10e3 /uL 3.4-10 .8 below low normal Not Available [facility] ([facility]) [address] [facility], [place], [address], 05/29/2022 11:07:48 05/29/20 22 05/29/2022 CBC WITH DIFFE RENTI AL/PL ATELE T RBC 4.52 x10e6 /uL 3.77-5 .28 Not Available [facility] ([facility]) [address] [facility], [place], [address], 05/29/2022 11:07:48 05/29/20 22 05/29/2022 CBC WITH DIFFE RENTI AL/PL ATELE T hemoglobin 14.0 g/dL 11.1-1 5.9 Not Available [facility] ([facility]) [address] [facility], [place], [address], 05/29/2022 11:07:48 05/29/20 22 05/29/2022 CBC WITH DIFFE RENTI AL/PL ATELE T hematocrit 44.3 % 34.0-4 6.6 Not Available [facility] ([facility]) [address] [facility], [place], [address], 05/29/2022 11:07:48 05/29/20 22 05/29/2022 CBC WITH DIFFE RENTI AL/PL ATELE T MCV 98 fL 79-97 above high normal Not Available [facility] ([facility]) [address] [facility], [place], [address], 05/29/2022 11:07:48 05/29/20 22 05/29/2022 CBC WITH DIFFE RENTI AL/PL ATELE T MCH 31.0 pg 26.6-3 3.0 Not Available [facility] ([facility]) [address] [facility], [place], [address], 05/29/2022 11:07:48 05/29/20 22 05/29/2022 CBC WITH DIFFE RENTI AL/PL ATELE T MCHC 31.6 g/dL 31.5-3 5.7 Not Available [facility] ([facility]) [address] [place], [address], 05/29/2022 11:07:48 05/29/20 22 05/29/2022 CBC WITH DIFFE RENTI AL/PL ATELE T RDW 13.9 % 11.7-1 5.4 Not Available [facility] ([facility]) [address] [facility], [place], [address], 05/29/2022 11:07:48 05/29/20 22 05/29/2022 CBC WITH DIFFE RENTI AL/PL ATELE T platelets 88 x10e3 /uL 150-45 0 alert low Actua l plate let count may be somew hat highe r than repor sharla due to aggre gatio n of plate lets in this sampl e. Not Available [facility] ([facility]) [address] [facility], [place], [address], 05/29/2022 11:07:48 05/29/20 22 05/29/2022 CBC WITH DIFFE RENTI AL/PL ATELE T neutrophils 62 % not estab. Not Available [facility] ([facility]) [address] [facility], [place], [address], 05/29/2022 11:07:48 05/29/20 22 05/29/2022 CBC WITH DIFFE RENTI AL/PL ATELE T lymphs 28 % not estab. Not Available [facility] ([facility]) [address] [facility], [place], [address], 05/29/2022 11:07:48 05/29/20 22 05/29/2022 CBC WITH DIFFE RENTI AL/PL ATELE T monocytes 8 % not estab. Not Available [facility] ([facility]) [address] [facility], [place], [address], 05/29/2022 11:07:48 05/29/20 22 05/29/2022 CBC WITH DIFFE RENTI AL/PL ATELE T eos 2 % not estab. Not Available [facility] ([facility]) [address] [place], [address], 05/29/2022 11:07:48 05/29/20 22 05/29/2022 CBC WITH DIFFE RENTI AL/PL ATELE T basos 0 % not estab. Not Available [facility] ([facility]) [address] [facility] [place], [address], 05/29/2022 11:07:48 05/29/20 22 05/29/2022 CBC WITH DIFFE RENTI AL/PL ATELE T immature cells BISQUE FINISHER Not Available [facility] ([facility]) [address] [facility], [place], [address], 05/29/2022 11:07:48 05/29/20 22 05/29/2022 CBC WITH DIFFE RENTI AL/PL ATELE T neutrophils (absolute) 2.1 x10e3 /uL 1.4-7. 0 Not Available [facility] ([facility]) [address] [facility], [place], [address], 05/29/2022 11:07:48 05/29/20 22 05/29/2022 CBC WITH DIFFE RENTI AL/PL ATELE T lymphs (absolute) 0.9 x10e3 /uL 0.7-3. 1 Not Available [facility] ([facility]) [address] [place], [address], 05/29/2022 11:07:48 05/29/20 22 05/29/2022 CBC WITH DIFFE RENTI AL/PL ATELE T monocytes(ab solute) 0.3 x10e3 /uL 0.1-0. 9 Not Available [facility] ([facility]) [address] [place], [address], 05/29/2022 11:07:48 05/29/20 22 05/29/2022 CBC WITH DIFFE RENTI AL/PL ATELE T eos (absolute) 0.1 x10e3 /uL 0.0-0. 4 Not Available [facility] ([facility]) [address] [place], [address], 05/29/2022 11:07:48 05/29/20 22 05/29/2022 CBC WITH DIFFE RENTI AL/PL ATELE T baso (absolute) 0.0 x10e3 /uL 0.0-0. 2 Not Available [facility] ([facility]) [address] [facility], [place], [address], 05/29/2022 11:07:48 05/29/20 22 05/29/2022 CBC WITH DIFFE RENTI AL/PL ATELE T immature granulocytes 0 % not estab. Not Available [facility] ([facility]) [address] [facility], [place], [address], 05/29/2022 11:07:48 05/29/20 22 05/29/2022 CBC WITH DIFFE RENTI AL/PL ATELE T immature grans (abs) 0.0 x10e3 /uL 0.0-0. 1 Not Available [facility] ([facility]) [address] [facility], [place], [address], 05/29/2022 11:07:48 05/29/20 22 05/29/2022 CBC WITH DIFFE RENTI AL/PL ATELE T NRBC BISQUE FINISHER Not Available [facility] ([facility]) [address] [facility], [place], [address], 05/29/2022 11:07:48 05/29/20 22 05/29/2022 CBC WITH DIFFE RENTI AL/PL ATELE T hematology comments: Note: Verif ied by micro bossman laceyi christiano n. Not Available [facility] ([facility]) [address] [facility], [place], [address], 05/29/2022 11:07:48 05/29/20 22 05/29/2022 COMP. METAB OLIC PANEL (14) glucose 111 mg/dL 70-99 above high normal Not Available [facility] ([facility]) [address] [facility], [place], [address], 05/29/2022 11:07:49 05/29/20 22 05/29/2022 COMP. METAB OLIC PANEL (14) BUN 13 mg/dL 8-27 Not Available [facility] ([facility]) [address] [place], [address], 05/29/2022 11:07:49 05/29/20 22 05/29/2022 COMP. METAB OLIC PANEL (14) creatinine 0.93 mg/dL 0.57-1 .00 Not Available [facility] ([facility]) [address] [place], [address], 05/29/2022 11:07:49 05/29/20 22 05/29/2022 COMP. METAB OLIC PANEL (14) eGFR 70 mL/mi n/1.7 3 >59 Not Available [facility] ([facility]) [address] [place], [address], 05/29/2022 11:07:49 05/29/20 22 05/29/2022 COMP. METAB OLIC PANEL (14) BUN/creatini ne ratio 14 12-28 Not Available [facility] ([facility]) [address] [facility], [place], [address], 05/29/2022 11:07:49 05/29/20 22 05/29/2022 COMP. METAB OLIC PANEL (14) sodium 145 mmol/ L 134-14 4 above high normal Not Available [facility] ([facility]) [address] [place], [address], 05/29/2022 11:07:49 05/29/20 22 05/29/2022 COMP. METAB OLIC PANEL (14) potassium 4.5 mmol/ L 3.5-5. 2 Not Available [facility] ([facility]) [address] [place], [address], 05/29/2022 11:07:49 05/29/20 22 05/29/2022 COMP. METAB OLIC PANEL (14) chloride 106 mmol/ L 96-106 Not Available [facility] ([facility]) [address] [place], [address], 05/29/2022 11:07:49 05/29/20 22 05/29/2022 COMP. METAB OLIC PANEL (14) carbon dioxide, total 28 mmol/ L 20-29 Not Available [facility] ([facility]) [address] [place], [address], 05/29/2022 11:07:49 05/29/20 22 05/29/2022 COMP. METAB OLIC PANEL (14) calcium 9.4 mg/dL 8.7-10 .3 Not Available [facility] ([facility]) [address] [facility] [place], [id number], 05/29/2022 11:07:49 05/29/20 22 05/29/2022 COMP. METAB OLIC PANEL (14) protein, total 7.2 g/dL 6.0-8. 5 Not Available [facility] ([facility]) [address] [place], [address], 05/29/2022 11:07:49 05/29/20 22 05/29/2022 COMP. METAB OLIC PANEL (14) albumin 3.9 g/dL 3.8-4. 9 Not Available [facility] ([facility]) [address] [place], [address], 05/29/2022 11:07:49 05/29/20 22 05/29/2022 COMP. METAB OLIC PANEL (14) globulin, total 3.3 g/dL 1.5-4. 5 Not Available [facility] ([facility]) [address] [place], [address], 05/29/2022 11:07:49 05/29/20 22 05/29/2022 COMP. METAB OLIC PANEL (14) A/G ratio 1.2 1.2-2. 2 Not Available [facility] ([facility]) [address] [place], [address], 05/29/2022 11:07:49 05/29/20 22 05/29/2022 COMP. METAB OLIC PANEL (14) bilirubin, total 0.6 mg/dL 0.0-1. 2 Not Available [facility] ([facility]) [address] [place], [address], 05/29/2022 11:07:49 05/29/20 22 05/29/2022 COMP. METAB OLIC PANEL (14) alkaline phosphatase 164 IU/L 44-121 above high normal Not Available [facility] ([facility]) [address] [place], [address], 05/29/2022 11:07:49 05/29/20 22 05/29/2022 COMP. METAB OLIC PANEL (14) AST (SGOT) 50 IU/L 0-40 above high normal Not Available [facility] ([facility]) [address] [place], [address], 05/29/2022 11:07:49 05/29/20 22 05/29/2022 COMP. METAB OLIC PANEL (14) ALT (SGPT) 41 IU/L 0-32 above high normal Not Available [facility] ([facility]) [address] [place], [address], 05/29/2022 11:07:49 05/29/20 22 05/29/2022 LIPID PANEL cholesterol, total 170 mg/dL 100-19 9 Not Available [facility] ([facility]) [address] [place], [address], 05/29/2022 11:07:50 05/29/20 22 05/29/2022 LIPID PANEL triglyceride s 88 mg/dL 0-149 Not Available [facility] ([facility]) [address] [place], [address], 05/29/2022 11:07:50 05/29/20 22 05/29/2022 LIPID PANEL HDL cholesterol 53 mg/dL >39 Not Available [facility]) [address] [facility], [place], [address], 05/29/2022 11:07:50 05/29/20 22 05/29/2022 LIPID PANEL VLDL cholesterol jenniffer 16 mg/dL 5-40 Not Available [facility] ([facility]) [address] [facility], [place], [address], 05/29/2022 11:07:50 05/29/20 22 05/29/2022 LIPID PANEL LDL chol calc ([facility]) 101 mg/dL 0-99 above high normal Not Available [facility] ([facility]) [address] [facility], [place], [address], 05/29/2022 11:07:50 05/29/20 22 05/29/2022 LIPID PANEL comment: BISQUE FINISHER Not Available [facility] ([facility]) [address] [place], [address], 05/29/2022 11:07:50 05/29/20 22 05/29/2022 ALBUM IN/CR EATIN INE RATIO ,URIN E creatinine, urine 147.7 mg/dL not estab. Not Available [facility] ([facility]) [address] [facility], [place], [address], 05/29/2022 11:07:50 05/29/20 22 05/29/2022 ALBUM IN/CR EATIN INE RATIO ,URIN E albumin, urine 80.0 ug/mL not estab. Not Available [facility] ([facility]) [address] [place], [address], 05/29/2022 11:07:50 05/29/20 22 05/29/2022 ALBUM IN/CR EATIN INE RATIO ,URIN E alb/creat ratio 54 mg/g_ creat 0-29 above high normal Blanka l: 0 - 29 Moder ately incre ased: 30 - 300 Sever lemuel incre ased: >300 Not Available [facility] ([facility]) [address] [facility], [place], [address], 05/29/2022 11:07:50 05/29/20 22 05/29/2022 HEMOG LOBIN A1C hemoglobin A1C 10.7 % 4.8-5. 6 above high normal Predi abete s: 5.7 - 6.4 Diabe reynold: >6.4 Glyce eve contr ol for adult s with diabe reynold: <7.0 Not Available [facility] ([facility]) [address] [facility], [place], [address], 05/29/2022 11:07:51 05/29/20 22 05/29/2022 C-PEP TIDE, SERUM C-peptide, serum 3.2 NG/mL 1.1-4. 4 C-Pep tide refer ence inter rimma is for fasti ng patie nts. Not Available [facility] ([facility]) [address] [facility], [place], [address], 05/29/2022 11:07:51 05/29/20 22 05/29/2022 PLESRUTHI E NOTE please note Commen t The date and/o r time of colle ction was not indic ated on the requi sitio n as requi red by state and [place] law. The date of recei pt of the speci men was used as the colle ction date if not suppl ied. Not Available [facility] ([facility]) [address] [facility], [place], [address], 05/29/2022 11:07:52 09/03/19 23 09/04/2022 CBC WITH DIFFE RENTI AL/PL ATELE T WBC 3.4 x10e3 /uL 3.4-10 .8 Not Available [facility] ([facility]) [address] [facility], [place], [address], 09/04/2022 11:08:26 09/03/19 23 09/04/2022 CBC WITH DIFFE RENTI AL/PL ATELE T RBC 4.18 x10e6 /uL 3.77-5 .28 Not Available [facility] ([facility]) [address] [facility], [place], [address], 09/04/2022 11:08:26 09/03/19 23 09/04/2022 CBC WITH DIFFE RENTI AL/PL ATELE T hemoglobin 13.2 g/dL 11.1-1 5.9 Not Available [facility] ([facility]) [address] [facility], [place], [address], 09/04/2022 11:08:26 09/03/19 23 09/04/2022 CBC WITH DIFFE RENTI AL/PL ATELE T hematocrit 39.4 % 34.0-4 6.6 Not Available [facility] ([facility]) [address] [facility], [place], [address], 09/04/2022 11:08:26 09/03/19 23 09/04/2022 CBC WITH DIFFE RENTI AL/PL ATELE T MCV 94 fL 79-97 Not Available [facility] ([facility]) [address] [facility], [place], [address], 09/04/2022 11:08:26 09/03/19 23 09/04/2022 CBC WITH DIFFE RENTI AL/PL ATELE T MCH 31.6 pg 26.6-3 3.0 Not Available [facility] ([facility]) [address] [facility], [place], [address], 09/04/2022 11:08:26 09/03/19 23 09/04/2022 CBC WITH DIFFE RENTI AL/PL ATELE T MCHC 33.5 g/dL 31.5-3 5.7 Not Available [facility] ([facility]) [address] [place], [address], 09/04/2022 11:08:26 09/03/19 23 09/04/2022 CBC WITH DIFFE RENTI AL/PL ATELE T RDW 13.9 % 11.7-1 5.4 Not Available [facility] ([facility]) [address] [facility], [place], [address], 09/04/2022 11:08:26 09/03/19 23 09/04/2022 CBC WITH DIFFE RENTI AL/PL ATELE T platelets 89 x10e3 /uL 150-45 0 alert low Plate let count verif ied by exami natsimeon n of perip heral blood smear . Not Available [facility] ([facility]) [address] [facility], [place], [address], 09/04/2022 11:08:26 09/03/19 23 09/04/2022 CBC WITH DIFFE RENTI AL/PL ATELE T neutrophils 58 % not estab. Not Available [facility] ([facility]) [address] [facility], [place], [address], 09/04/2022 11:08:26 09/03/19 23 09/04/2022 CBC WITH DIFFE RENTI AL/PL ATELE T lymphs 32 % not estab. Not Available [facility] ([facility]) [address] [facility], [place], [address], 09/04/2022 11:08:26 09/03/19 23 09/04/2022 CBC WITH DIFFE RENTI AL/PL ATELE T monocytes 9 % not estab. Not Available [facility] ([facility]) [address] [facility], [place], [address], 09/04/2022 11:08:26 09/03/19 23 09/04/2022 CBC WITH DIFFE RENTI AL/PL ATELE T eos 1 % not estab. Not Available [facility] ([facility]) [address] [facility], [place], [address], 09/04/2022 11:08:26 09/03/19 23 09/04/2022 CBC WITH DIFFE RENTI AL/PL ATELE T basos 0 % not estab. Not Available [facility] ([facility]) [address] [place], [address], 09/04/2022 11:08:26 09/03/19 23 09/04/2022 CBC WITH DIFFE RENTI AL/PL ATELE T immature cells BISQUE FINISHER Not Available [facility] ([facility]) [address] [facility], [place], [address], 09/04/2022 11:08:26 09/03/19 23 09/04/2022 CBC WITH DIFFE RENTI AL/PL ATELE T neutrophils (absolute) 1.9 x10e3 /uL 1.4-7. 0 Not Available [facility] ([facility]) [address] [place], [address], 09/04/2022 11:08:26 09/03/19 23 09/04/2022 CBC WITH DIFFE RENTI AL/PL ATELE T lymphs (absolute) 1.1 x10e3 /uL 0.7-3. 1 Not Available [facility] ([facility]) [address] [place], [address], 09/04/2022 11:08:26 09/03/19 23 09/04/2022 CBC WITH DIFFE RENTI AL/PL ATELE T monocytes(ab solute) 0.3 x10e3 /uL 0.1-0. 9 Not Available [facility] ([facility]) [address] [place], [address], 09/04/2022 11:08:26 09/03/19 23 09/04/2022 CBC WITH DIFFE RENTI AL/PL ATELE T eos (absolute) 0.0 x10e3 /uL 0.0-0. 4 Not Available [facility] ([facility]) [address] [place], [address], 09/04/2022 11:08:26 09/03/19 23 09/04/2022 CBC WITH DIFFE RENTI AL/PL ATELE T baso (absolute) 0.0 x10e3 /uL 0.0-0. 2 Not Available [facility] ([facility]) [address] [facility], [place], [address], 09/04/2022 11:08:26 09/03/19 23 09/04/2022 CBC WITH DIFFE RENTI AL/PL ATELE T immature granulocytes 0 % not estab. Not Available [facility] ([facility]) [address] [facility], [place], [address], 09/04/2022 11:08:26 09/03/19 23 09/04/2022 CBC WITH DIFFE RENTI AL/PL ATELE T immature grans (abs) 0.0 x10e3 /uL 0.0-0. 1 Not Available [facility] ([facility]) [address] [facility], [place], [address], 09/04/2022 11:08:26 09/03/19 23 09/04/2022 CBC WITH DIFFE RENTI AL/PL ATELE T NRBC BISQUE FINISHER Not Available [facility] ([facility]) [address] [facility], [place], [address], 09/04/2022 11:08:26 09/03/19 23 09/04/2022 CBC WITH DIFFE RENTI AL/PL ATELE T hematology comments: Note: Verif ied by tristen alvarado nAkhil Not Available [facility] ([facility]) [address] [place], [address], 09/04/2022 11:08:26 09/03/19 23 09/04/2022 COMP. METAB OLIC PANEL (14) glucose 87 mg/dL 70-99 Not Available [facility] ([facility]) [address] [place], [address], 09/04/2022 11:08:27 09/03/19 23 09/04/2022 COMP. METAB OLIC PANEL (14) BUN 16 mg/dL 8-27 Not Available [facility] ([facility]) [address] [place], [address], 09/04/2022 11:08:27 09/03/19 23 09/04/2022 COMP. METAB OLIC PANEL (14) creatinine 1.02 mg/dL 0.57-1 .00 above high normal Not Available [facility] ([facility]) [address] [facility] [place], [address], 09/04/2022 11:08:27 09/03/19 23 09/04/2022 COMP. METAB OLIC PANEL (14) eGFR 63 mL/mi n/1.7 3 >59 Not Available [facility] ([facility]) [address] [place], [address], 09/04/2022 11:08:27 09/03/19 23 09/04/2022 COMP. METAB OLIC PANEL (14) BUN/creatini ne ratio 16 12-28 Not Available [facility] ([facility]) [address] [place], [address], 09/04/2022 11:08:27 09/03/19 23 09/04/2022 COMP. METAB OLIC PANEL (14) sodium 145 mmol/ L 134-14 4 above high normal Not Available [facility] ([facility]) [address] [place], [address], 09/04/2022 11:08:27 09/03/19 23 09/04/2022 COMP. METAB OLIC PANEL (14) potassium 4.3 mmol/ L 3.5-5. 2 Not Available [facility] ([facility]) [address] [place], [address], 09/04/2022 11:08:27 09/03/19 23 09/04/2022 COMP. METAB OLIC PANEL (14) chloride 108 mmol/ L 96-106 above high normal Not Available [facility] ([facility]) [address] [place], [address], 09/04/2022 11:08:27 09/03/19 23 09/04/2022 COMP. METAB OLIC PANEL (14) carbon dioxide, total 26 mmol/ L 20-29 Not Available [facility] ([facility]) [address] [place], [address], 09/04/2022 11:08:27 09/03/19 23 09/04/2022 COMP. METAB OLIC PANEL (14) calcium 9.2 mg/dL 8.7-10 .3 Not Available [facility] ([facility]) [address] [place], [address], 09/04/2022 11:08:27 09/03/19 23 09/04/2022 COMP. METAB OLIC PANEL (14) protein, total 7.0 g/dL 6.0-8. 5 Not Available [facility] ([facility]) [address] [place], [address], 09/04/2022 11:08:27 09/03/19 23 09/04/2022 COMP. METAB OLIC PANEL (14) albumin 3.8 g/dL 3.8-4. 9 Not Available [facility] ([facility]) [address] [place], [address], 09/04/2022 11:08:27 09/03/19 23 09/04/2022 COMP. METAB OLIC PANEL (14) globulin, total 3.2 g/dL 1.5-4. 5 Not Available [facility] ([facility]) [address] [facility] [place], [address], 09/04/2022 11:08:27 09/03/19 23 09/04/2022 COMP. METAB OLIC PANEL (14) A/G ratio 1.2 1.2-2. 2 Not Available [facility] ([facility]) [address] [facility] [place], [id number], 09/04/2022 11:08:27 09/03/19 23 09/04/2022 COMP. METAB OLIC PANEL (14) bilirubin, total 0.6 mg/dL 0.0-1. 2 Not Available [facility] ([facility]) [address] [place], [id number], 09/04/2022 11:08:27 09/03/19 23 09/04/2022 COMP. METAB OLIC PANEL (14) alkaline phosphatase 153 IU/L 44-121 above high normal Not Available [facility] ([facility]) [address] [place], [id number], 09/04/2022 11:08:27 09/03/19 23 09/04/2022 COMP. METAB OLIC PANEL (14) AST (SGOT) 55 IU/L 0-40 above high normal Not Available [facility] ([facility]) [address] [place], [id number], 09/04/2022 11:08:27 09/03/19 23 09/04/2022 COMP. METAB OLIC PANEL (14) ALT (SGPT) 41 IU/L 0-32 above high normal Not Available [facility] ([facility]) [address] [place], [id number], 09/04/2022 11:08:27 09/03/19 23 09/04/2022 LIPID PANEL cholesterol, total 150 mg/dL 100-19 9 Not Available [facility] ([facility]) [address] [place], [id number], 09/04/2022 11:08:28 09/03/19 23 09/04/2022 LIPID PANEL triglyceride s 125 mg/dL 0-149 Not Available [facility] ([facility]) [address] [place], [address], 09/04/2022 11:08:28 09/03/19 23 09/04/2022 LIPID PANEL HDL cholesterol 37 mg/dL >39 below low normal Not Available [facility] ([facility]) [address] [place], [address], 09/04/2022 11:08:28 09/03/19 23 09/04/2022 LIPID PANEL VLDL cholesterol jenniffer 23 mg/dL 5-40 Not Available [facility] ([facility]) [address] [place], [address], 09/04/2022 11:08:28 09/03/19 23 09/04/2022 LIPID PANEL LDL chol calc ([facility]) 90 mg/dL 0-99 Not Available [facility] ([facility]) [address] [place], [address], 09/04/2022 11:08:28 09/03/19 23 09/04/2022 LIPID PANEL comment: BISQUE FINISHER Not Available [facility] ([facility]) [address] [place], [address], 09/04/2022 11:08:28 09/03/19 23 09/04/2022 HEMOG LOBIN A1C hemoglobin A1C 7.5 % 4.8-5. 6 above high normal Predi abete s: 5.7 - 6.4 Diabe reynold: >6.4 Glyce eve contr ol for adult s with diabe reynold: <7.0 Not Available [facility] ([facility]) [address] [facility], [place], [address], 09/04/2022 11:08:29 04/22/20 23 04/23/2023 CBC WITH DIFFE RENTI AL/PL ATELE T WBC 2.4 x10e3 /uL 3.4-10 .8 alert low Not Available [facility] ([facility]) [address] [place], [address], 04/23/2023 13:06:54 04/22/20 23 04/23/2023 CBC WITH DIFFE RENTI AL/PL ATELE T RBC 4.19 x10e6 /uL 3.77-5 .28 Not Available [facility] ([facility]) [address] [facility], [place], [address], 04/23/2023 13:06:54 04/22/20 23 04/23/2023 CBC WITH DIFFE RENTI AL/PL ATELE T hemoglobin 13.7 g/dL 11.1-1 5.9 Not Available [facility] ([facility]) [address] [facility], [place], [address], 04/23/2023 13:06:54 04/22/20 23 04/23/2023 CBC WITH DIFFE RENTI AL/PL ATELE T hematocrit 41.2 % 34.0-4 6.6 Not Available [facility] ([facility]) [address] [facility], [place], [address], 04/23/2023 13:06:54 04/22/20 23 04/23/2023 CBC WITH DIFFE RENTI AL/PL ATELE T MCV 98 fL 79-97 above high normal Not Available [facility] ([facility]) [address] [facility], [place], [address], 04/23/2023 13:06:54 04/22/20 23 04/23/2023 CBC WITH DIFFE RENTI AL/PL ATELE T MCH 32.7 pg 26.6-3 3.0 Not Available [facility] ([facility]) [address] [facility], [place], [address], 04/23/2023 13:06:54 04/22/20 23 04/23/2023 CBC WITH DIFFE RENTI AL/PL ATELE T MCHC 33.3 g/dL 31.5-3 5.7 Not Available [facility] ([facility]) [address] [place], [address], 04/23/2023 13:06:54 04/22/20 23 04/23/2023 CBC WITH DIFFE RENTI AL/PL ATELE T RDW 13.9 % 11.7-1 5.4 Not Available [facility] ([facility]) [address] [facility], [place], [address], 04/23/2023 13:06:54 04/22/20 23 04/23/2023 CBC WITH DIFFE RENTI AL/PL ATELE T platelets 71 x10e3 /uL 150-45 0 alert low Plate let count verif ied by deepthii christiano machado of perip heral blood smear . Not Available [facility] ([facility]) [address] [facility], [place], [address], 04/23/2023 13:06:54 04/22/20 23 04/23/2023 CBC WITH DIFFE RENTI AL/PL ATELE T neutrophils 62 % not estab. Not Available [facility] ([facility]) [address] [facility], [place], [address], 04/23/2023 13:06:54 04/22/20 23 04/23/2023 CBC WITH DIFFE RENTI AL/PL ATELE T lymphs 29 % not estab. Not Available [facility] ([facility]) [address] [facility], [place], [address], 04/23/2023 13:06:54 04/22/20 23 04/23/2023 CBC WITH DIFFE RENTI AL/PL ATELE T monocytes 9 % not estab. Not Available [facility] ([facility]) [address] [facility], [place], [address], 04/23/2023 13:06:54 04/22/20 23 04/23/2023 CBC WITH DIFFE RENTI AL/PL ATELE T eos 0 % not estab. Not Available [facility] ([facility]) [address] [facility], [place], [address], 04/23/2023 13:06:54 04/22/20 23 04/23/2023 CBC WITH DIFFE RENTI AL/PL ATELE T basos 0 % not estab. Not Available [facility] ([facility]) [address] [facility], [place], [address], 04/23/2023 13:06:54 04/22/20 23 04/23/2023 CBC WITH DIFFE RENTI AL/PL ATELE T immature cells BISQUE FINISHER Not Available [facility] ([facility]) [address] [place], [address], 04/23/2023 13:06:54 04/22/20 23 04/23/2023 CBC WITH DIFFE RENTI AL/PL ATELE T neutrophils (absolute) 1.5 x10e3 /uL 1.4-7. 0 Not Available [facility] ([facility]) [address] [place], [address], 04/23/2023 13:06:54 04/22/20 23 04/23/2023 CBC WITH DIFFE RENTI AL/PL ATELE T lymphs (absolute) 0.7 x10e3 /uL 0.7-3. 1 Not Available [facility] ([facility]) [address] [place], [address], 04/23/2023 13:06:54 04/22/20 23 04/23/2023 CBC WITH DIFFE RENTI AL/PL ATELE T monocytes(ab solute) 0.2 x10e3 /uL 0.1-0. 9 Not Available [facility] ([facility]) [address] [place], [address], 04/23/2023 13:06:54 04/22/20 23 04/23/2023 CBC WITH DIFFE RENTI AL/PL ATELE T eos (absolute) 0.0 x10e3 /uL 0.0-0. 4 Not Available [facility] ([facility]) [address] [place], [address], 04/23/2023 13:06:54 04/22/20 23 04/23/2023 CBC WITH DIFFE RENTI AL/PL ATELE T baso (absolute) 0.0 x10e3 /uL 0.0-0. 2 Not Available [facility] ([facility]) [address] [facility], [place], [address], 04/23/2023 13:06:54 04/22/20 23 04/23/2023 CBC WITH DIFFE RENTI AL/PL ATELE T immature granulocytes 0 % not estab. Not Available [facility] ([facility]) [address] [facility], [place], [address], 04/23/2023 13:06:54 04/22/20 23 04/23/2023 CBC WITH DIFFE RENTI AL/PL ATELE T immature grans (abs) 0.0 x10e3 /uL 0.0-0. 1 Not Available [facility] ([facility]) [address] [facility], [place], [address], 04/23/2023 13:06:54 04/22/20 23 04/23/2023 CBC WITH DIFFE RENTI AL/PL ATELE T NRBC BISQUE FINISHER Not Available [facility] ([facility]) [address] [facility], [place], [address], 04/23/2023 13:06:54 04/22/20 23 04/23/2023 CBC WITH DIFFE RENTI AL/PL ATELE T hematology comments: Note: Verif ied by tristen alvarado n. Not Available [facility] ([facility]) [address] [place], [address], 04/23/2023 13:06:54 04/22/20 23 04/23/2023 COMP. METAB OLIC PANEL (14) glucose 322 mg/dL 70-99 above high normal Not Available [facility] ([facility]) [address] [place], [address], 04/23/2023 13:06:55 04/22/20 23 04/23/2023 COMP. METAB OLIC PANEL (14) BUN 26 mg/dL 8-27 Not Available [facility] ([facility]) [address] [place], [address], 04/23/2023 13:06:55 04/22/20 23 04/23/2023 COMP. METAB OLIC PANEL (14) creatinine 1.39 mg/dL 0.57-1 .00 above high normal Not Available [facility] ([facility]) [address], [place], [address], 04/23/2023 13:06:55 04/22/20 23 04/23/2023 COMP. METAB OLIC PANEL (14) eGFR 43 mL/mi n/1.7 3 >59 below low normal Not Available [facility] ([facility]) [address] [place], [address], 04/23/2023 13:06:55 04/22/20 23 04/23/2023 COMP. METAB OLIC PANEL (14) BUN/creatini ne ratio 19 12-28 Not Available [facility] ([facility]) [address] [place], [address], 04/23/2023 13:06:55 04/22/20 23 04/23/2023 COMP. METAB OLIC PANEL (14) sodium 143 mmol/ L 134-14 4 Not Available [facility] ([facility]) [address] [place], [address], 04/23/2023 13:06:55 04/22/20 23 04/23/2023 COMP. METAB OLIC PANEL (14) potassium 5.1 mmol/ L 3.5-5. 2 Not Available [facility] ([facility]) [address] [place], [address], 04/23/2023 13:06:55 04/22/20 23 04/23/2023 COMP. METAB OLIC PANEL (14) chloride 103 mmol/ L 96-106 Not Available [facility] ([facility]) [address] [place], [address], 04/23/2023 13:06:55 04/22/20 23 04/23/2023 COMP. METAB OLIC PANEL (14) carbon dioxide, total 28 mmol/ L 20-29 Not Available [facility] ([facility]) [address] [facility], [place], [address], 04/23/2023 13:06:55 04/22/20 23 04/23/2023 COMP. METAB OLIC PANEL (14) calcium 9.4 mg/dL 8.7-10 .3 Not Available [facility] ([facility]) [address] [facility], [place], [address], 04/23/2023 13:06:55 04/22/20 23 04/23/2023 COMP. METAB OLIC PANEL (14) protein, total 7.4 g/dL 6.0-8. 5 Not Available [facility] ([facility]) [address] [facility], [place], [address], 04/23/2023 13:06:55 04/22/20 23 04/23/2023 COMP. METAB OLIC PANEL (14) albumin 3.9 g/dL 3.9-4. 9 Not Available [facility] ([facility]) [address] [facility], [place], [address], 04/23/2023 13:06:55 04/22/20 23 04/23/2023 COMP. METAB OLIC PANEL (14) globulin, total 3.5 g/dL 1.5-4. 5 Not Available [facility] ([facility]) [address] [facility], [place], [address], 04/23/2023 13:06:55 04/22/20 23 04/23/2023 COMP. METAB OLIC PANEL (14) A/G ratio 1.1 1.2-2. 2 below low normal Not Available [facility] ([facility]) [address] [facility], [place], [address], 04/23/2023 13:06:55 04/22/20 23 04/23/2023 COMP. METAB OLIC PANEL (14) bilirubin, total 0.6 mg/dL 0.0-1. 2 Not Available [facility] ([facility]) [address] [place], [address], 04/23/2023 13:06:55 04/22/20 23 04/23/2023 COMP. METAB OLIC PANEL (14) alkaline phosphatase 145 IU/L 44-121 above high normal Not Available [facility] ([facility]) [address] [place], [address], 04/23/2023 13:06:55 04/22/20 23 04/23/2023 COMP. METAB OLIC PANEL (14) AST (SGOT) 45 IU/L 0-40 above high normal Not Available [facility] ([facility]) [address] [place], [address], 04/23/2023 13:06:55 04/22/20 23 04/23/2023 COMP. METAB OLIC PANEL (14) ALT (SGPT) 33 IU/L 0-32 above high normal Not Available [facility] ([facility]) [address] [place], [address], 04/23/2023 13:06:55 04/22/20 23 04/23/2023 ALBUM IN/CR EAT RATIO , RANDO M UR creatinine, urine 75.9 mg/dL not estab. Not Available [facility] ([facility]) [address] [place], [address], 04/23/2023 13:06:56 04/22/20 23 04/23/2023 ALBUM IN/CR EAT RATIO , RANDO M UR albumin, urine 4.9 ug/mL not estab. Not Available [facility] ([facility]) [address] [place], [address], 04/23/2023 13:06:56 04/22/20 23 04/23/2023 ALBUM IN/CR EAT RATIO , RANDO M UR alb/creat ratio 6 mg/g_ creat 0-29 Blanka l: 0 - 29 Moder ately incre ased: 30 - 300 Sever lemuel incre ased: >300 Not Available [facility] ([facility]) [address] [facility], [place], [address], 04/23/2023 13:06:56 04/22/20 23 04/23/2023 INSUL IN AND C-PEP TIDE, SERUM insulin 92.0 uIU/m L 2.6-24 .9 above high normal Not Available [facility] ([facility]) [address] [place], [address], 04/23/2023 13:06:56 04/22/20 23 04/23/2023 INSUL IN AND C-PEP TIDE, SERUM C-peptide, serum 11.8 NG/mL 1.1-4. 4 above high normal C-Pep tide refer ence inter rimma is for fasti ng patie nts. Not Available [facility] ([facility]) [address] [facility], [place], [address], 04/23/2023 13:06:56 04/22/2004/23/2023 HEMOG LOBIN A1C hemoglobin A1C 7.4 % 4.8-5. 6 above high normal Predi abete s: 5.7 - 6.4 Diabe reynold: >6.4 Glyce eve contr ol for adult s with diabe reynold: <7.0 Not Available [facility] ([facility]) [address] [facility], [place], [address], 04/23/2023 13:06:57 05/31/20 22 05/31/2022 XR, chest , 2 view No observ ation record ed. [facility] [address], [place], [place], [address], 06/04/2022 17:15:22 04/22/20 23 12/26/2021 MAMMO , diagn ostic , digit al, unila teral No observ ation record ed. [facility] (Med Record) [address], [place], [address], 04/22/2023 14:40:09 Result Notes None recorded. Problems Name Problem SNOMED Code Status Onset Date Resolution Date Notes Provider Name and Address Organization Details Recorded Time Type 2 diabetes mellitus 16075167 Active 2021 Mary Henry, [employer]END[employer] [address], [place], [address], [place] - [facility] 10:51:37 Hypertensive disorder 55611702 Active 2021 Ramóntiffanisavanah Henry, [employer] ATTENDANT [address], [place], [address], [place] [facility] 10:51:29 Chronic kidney disease stage 3 520664616 Active 2021 Ramónanali kristen, [employer] ATTENDANT [address], [place], [address], [place] [facility] 10:51:25 Chronic back pain 641118617 Active 2021 Mary Henry, [employer] ATTENDANT [address], [place], [address], [place] [facility] 10:51:22 Heart disease 06285900 Active 2021 Mary Henry, [employer] ATTENDANT [address], [place], [address], [place] [facility] 10:51:27 Problem Notes None recorded. Procedures Surgical History Date Name Laterality Status Provider Name and Address Organization Details Recorded Time 12/27/19 22 Date of Last Mammogram completed Vero Stears [place] - [facility] 04/22/2023 14:33:38 placement of stent in pulmonary artery completed Vero Stears [place] - [facility] 05/28/2022 10:29:59 biopsy of liver completed Vero Stears [place] - [facility] 05/28/2022 10:30:04 biopsy of breast completed Vero Stears [place] - [facility] 05/28/2022 10:30:12 Cholecystectomy, laparoscopic completed Vero Stears [place] - [facility] 05/28/2022 10:30:19 Cardiac Cath completed Vero Malones [place] - [facility] 05/28/2022 10:30:26 Colonoscopy completed Vero Malones [place] - [facility] 05/28/2022 10:30:32 Imaging Results None recorded. Procedure Notes None recorded. Medical Equipment None Reported. Allergies No known drug allergies Medications Name Sig Start Date Stop Date Status Note LastModified by Organization Details LastModified Time Prescriptio n - New active Not Available Not Available Not Available cyclobenzap rine 10 mg tablet 05/28 completed Not Available Not Available Not Available furosemide 40 mg tablet 1 tablet daily as needed for swelling active Not Available Not Available No t Available metformin 500 mg tablet 03/26 completed Not Available Not Available Not Available prednisone 10 mg tablet active Not Available Not Available Not Available gabapentin 600 mg tablet TAKE 1 TABLET BY MOUTH THREE TIMES DAILY FOR PAIN 04/22 completed Not Available Not Available Not Available doxycycline hyclate 100 mg capsule active Not Available Not Available N ot Available atorvastati n 20 mg tablet Take 1 tablet every day by oral route for 30 days. active Not Available Not Available No t Available clindamycin HCl 300 mg capsule 05/28 completed Not Available Not Available Not Available triazolam 0.25 mg tablet active Not Available Not Available Not Available atorvastati n 10 mg tablet 1 qd 03/26 completed Not Available Not Available Not Available azithromyci n 250 mg tablet active Not Available Not Available [...] t Available ciprofloxac in 500 mg tablet 03/26 completed Not Available Not Available Not Available sulfamethox azole 800 mg-trimetho prim 160 mg tablet 04/22 completed Not Available Not Available Not Available hydrocodone 10 mg-acetamin ophen 325 mg tablet 1 tablet four times per day prn active Not Available Not Available No t Available aspirin 81 mg tablet,kaua yed release 1 tablet every day active Not Available Not Available No t Available triamcinolo ne acetonide 0.1 % topical cream active Not Available Not Available Not Available spironolact one 25 mg tablet 1 tablet every day active Not Available Not Available No t Available bisoprolol fumarate 10 mg tablet TAKE 1 TABLET BY MOUTH TWICE DAILY FOR BLOOD PRESSURE active Not Available Not Available No t Available isosorbide mononitrate ER 60 mg tablet,exte nded release 24 hr TAKE 1 AND 1/2 TABLETS BY MOUTH DAILY FOR BLOOD PRESSURE 04/22 completed Not Available Not Available Not Available amoxicillin 875 mg tablet 03/26 completed Not Available Not Available Not Available potassium chloride ER 20 mEq tablet,exte nded release(par t/cryst) 1 Tablet daily 04/22 completed Not Available Not Available Not Available Novolin R Regular U-100 Insulin 100 unit/mL injection solution INJECT SUBCUTANE OUSLY DIRECTED PER SLIDING SCALE. MAX DAILY DOSE 80 UNITS 2024 active Not Available Not Available Not Avai lable gabapentin 800 mg tablet 1 tablet three times per day active Not Available Not Available No t Available OneTouch Ultra Test strips active Not [...] completed Not Available Not Available Not Available erythromyci n 5 mg/gram (0.5 %) eye ointment active Not Available Not Available Not Available metformin 1,000 mg tablet Take 1 tablet twice a day by oral route for 30 days. active Not Available Not Available No t Available neomycin-po lymyxin-dex ameth 3.5 mg/mL-10,00 0 unit/mL-0.1 % eye drops active Not Available Not Available Not Available lisinopril 10 mg tablet TAKE 1 TABLET BY MOUTH ONCE DAILY FOR HIGH BLOOD PRESSURE active Not Available Not Available No t Available gentamicin 0.1 % topical cream active Not Available Not Available Not Available ammonium lactate 12 % topical cream active Not Available Not Available Not Available mupirocin 2 % topical ointment prn active Not Available Not Available Not Available Novolog U-100 Insulin aspart 100 unit/mL subcutaneou s solution USE DIRECTED PER SLIDING SCALE WITH MAXIMUM DAILY DOSE OF 80 UNITS 12/08 completed Not Available Not Available Not Available polyethylen e glycol 3350 17 gram/dose oral powder active Not Available Not Available Not Available methylpredn isolone 4 mg tablets in a dose pack active Not Available Not Available Not Available albuterol sulfate HFA 90 mcg/actuati on aerosol inhaler active Not Available Not Available Not Available ondansetron 4 mg disintegrat ing tablet DISSOLVE 1 TABLET ON THE TONGUE EVERY 8 HOURS NEEDED FOR NAUSEA active Not Available Not Available No t Available metformin ER 500 mg tablet,exte nded release 24 hr TAKE 2 TABLETS BY MOUTH 2 TIMES A DAY FOR DIABETES 03/26 completed Not Available Not Available Not Available colestipol 1 gram tablet active Not Available Not Available Not Available cholecalcif maris (vitamin D3) 125 mcg (5,000 unit) capsule active Not Available Not Available Not Available doxycycline hyclate 100 mg tablet TAKE 1 TABLET BY MOUTH TWICE DAILY FOR 7 DAYS 04/22 completed Not Available Not Available Not Available dicyclomine 10 mg capsule active Not Available Not Available Not Available amoxicillin 875 mg-potassiu m clavulanate 125 mg tablet 03/26 completed Not Available Not Available Not Available hydroxyzine pamoate 25 mg capsule 05/28 completed Not Available Not Available Not Available Novolog Mix 70-30 FlexPen U-100 Insulin 100 unit/mL subcutaneou s pen ADMINISTE R 63 UNITS UNDER THE SKIN THREE TIMES DAILY FOR DIABETES 04/24 completed Not Available Not Available Not Available insulin aspar prt-insulin aspart 100 unit/mL (70-30) subcutaneou s soln ADMINISTE R 63 UNITS UNDER THE SKIN THREE TIMES DAILY 04/22 completed Not Available Not Available Not Available BD Ultra-Fine Mini Pen Needle 31 gauge x 3/16 USE DIRECTED active Not Available Not Available No t Available lactulose 10 gram/15 mL oral solution TAKE 15 ML BY MOUTH TWICE DAILY active Not Available Not Available No t Available Lantus Solostar U-100 Insulin 100 unit/mL (3 mL) subcutaneou s pen ADMINISTE R 20 UNITS UNDER THE SKIN DAILY 04/24 completed Not Available Not Available Not Available ranolazine ER 1,000 mg tablet,exte nded release,12 hr 1 tablet by mouth twice daily 09/03 completed Not Available Not Available Not Available GaviLyte-G 236 gram-22.74 gram-6.74 gram-5.86 gram oral solution active Not Available Not Available Not Available Xifaxan 550 mg tablet active Not Available Not Available No t Available BD Insulin Syringe Ultra-Fine 1 mL 31 gauge x 5/16 USE WITH INJECTION S THREE TIMES DAILY active Not Available Not Available No t Available Farxiga 5 mg tablet 1 qd active Not Available Not Available No t [...] (2 mg/1.5 mL) subcutaneou s pen injector 04/22 completed Not Available Not Available Not Available OneTouch Ultra2 Meter USE DIRECTED 2023 active Not Available Not Available Not Avai lable OneTouch Delica Plus Lancet 33 gauge active Not Available Not Available Not Available OneTouch Delica Plus Lancet 30 gauge active Not Available Not Available Not Available Ozempic 1 mg/dose (4 mg/3 mL) subcutaneou s pen injector 03/26 completed Not Available Not Available Not Available Omnipod 5 G6 Pods (Gen 5) subcutaneou s cartridge CHANGE POD EVERY 3 DAYS BASED ON SLIDING SCALE active Not Available Not Available No t Available Omnipod 5 G6 Intro Kit (Gen 5) subcutaneou s cartridge with controller change pod every 72 hours based on sliding scale 04/22 completed Not Available Not Available Not Available Omnipod 5 G6 Intro Kit (Gen 5) active Not Available Not Available Not Available Mounjaro 7.5 mg/0.5 mL subcutaneou s pen injector INJECT 7.5 MG (0.5 ML) SUBCUTANE OUSLY ONCE WEEKLY active Not Available Not Available No t Available Mounjaro 5 mg/0.5 mL subcutaneou s pen injector Inject 5 mg every week by subcutane ous route. 07/12 completed Not Available Not Available Not Available Mounjaro 2.5 mg/0.5 mL subcutaneou s pen injector Inject 2.5 mg every week by subcutane ous route. 07/12 completed Not Available Not Available Not Available Ozempic 0.25 mg or 0.5 mg (2 mg/3 mL) subcutaneou s pen injector 03/26 completed Not Available Not Available Not Available Omnipod 5 G6-G7 Pods (Gen 5) subcutaneou s cartridge CHANGE POD EVERY 3 DAYS BASED ON SLIDING SCALE 2024 active Not Available Not Available Not Avai lable Vitals Date Recorded Body height Body mass index (BMI) Body weight Body temperature Heart rate Oxygen saturation Oxygen saturation in Arterial blood by Pulse oximetry Respiratory rate Systolic blood pressure Diastolic blood pressure Provider Name and Address Organization Details Last Updated DateTime 3 170.18 cm 32.3 kg/m2 39408.0 3 g 97.6 [degF] 90 /min 95 % 95 % 18 /min 142 mm[Hg] 80 mm[Hg] Vero Delgado [place] - [facility] 3 11:31:24 Date Recorded Body height Body mass index (BMI) Body weight Oxygen saturation Oxygen saturation in Arterial blood by Pulse oximetry Respiratory rate Heart rate Body temperature Systolic blood pressure Diastolic blood pressure Provider Name and Address Organization Details Last Updated DateTime 4 170.18 cm 31.5 kg/m2 18769.7 7 g 98 % 98 % 18 /min 75 /min 98.1 [degF] 112 mm[Hg] 74 mm[Hg] Coretta Whitfield [place] - [facility] 4 15:15:06 Date Recorded Body height Body mass index (BMI) Body weight Body temperature Respiratory rate Oxygen saturation Oxygen saturation in Arterial blood by Pulse oximetry Heart rate Systolic blood pressure Diastolic blood pressure Provider Name and Address Organization Details Last Updated DateTime 3 170.18 cm 32.4 kg/m2 65816.6 2 g 97.5 [degF] 18 /min 91 % 91 % 84 /min 136 mm[Hg] 78 mm[Hg] Vero Delgado [place] - [facility] 3 09:56:51 Date Recorded Body weight Body mass index (BMI) Body height Respiratory rate Oxygen saturation Oxygen saturation in Arterial blood by Pulse oximetry Heart rate Body temperature Systolic blood pressure Diastolic blood pressure Provider Name and Address Organization Details Last Updated DateTime 2 26592.9 2 g 30.4 kg/m2 170.18 cm 18 /min 95 % 95 % 96 /min 97.5 [degF] 148 mm[Hg] 78 mm[Hg] Vero Delgado [place] - [facility] 2 10:14:48 Social History Question Answer Notes LastModified by Organizat ion Details LastModified Time Tobacco Smoking Status Never Smoker [facility] 05/28/2022 10:27:58 Do You Have An Advance Directive? No Information not available 05/28/2022 Are You Blind Or Do You Have Difficulty Seeing? Yes Blurry, Hard To See Far Away, Has Eye Dr. Hidalgo 05-29-[address] Gallegos At [facility] Information not available 05/28/2022 What Is Your Level Of Caffeine Consumption? Occasional Information not available 05/28/2022 Are You Deaf Or Do You Have Serious Difficulty Hearing? 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 REGULAR Information not available 05/28/2022 What Is The Highest Grade Or Level Of School You Have Completed Or The Highest Degree You Have Received? [id number] Information not available 05/28/2022 Have There Been Any Changes To Your Family Or Social Situation? No Information not available 05/28/2022 What Is The Fluoride Status Of Your Home? Unknown Information not available 05/28/2022 Do You Have A Medical Power Of Low Pressure Boiler Operator? No Information not available 05/28/2022 What Was The Date Of Your Most Recent Tobacco Screening? 04/22/2023 Information not available 04/22/2023 What Is Your Relationship Status? Information not available 05/28/2022 Do You Have Smoke And Carbon Monoxide Detectors In Your Home? Yes Information not available 05/28/2022 Are You Passively Exposed To Smoke? No Information not available 05/28/2022 Has Tobacco Cessation Counseling Been Provided? No Information not available 04/22/2023 Do You Have Difficulty Walking Or Climbing Stairs? No Information not available 05/28/2022 Sex: Female Functional Status Question Answer Note LastModified by Organizat ion Details LastModified Time Do you use any illicit or recreational drugs? No Information not available 05/28/2022 Do you or have you ever used any other forms of tobacco or nicotine? No Information not available 05/28/2022 What is your level of alcohol consumption? None Information not available 05/28/2022 Are you currently employed? No Information not available 05/28/2022 Do you have transportation difficulties? No Information not available 05/28/2022 Are you able to walk? YESWOREST Information not available 05/28/2022 Do you have difficulty doing errands alone? No Information not available 05/28/2022 Are you able to care for yourself? Yes Information not available 05/28/2022 Do you have difficulty dressing or bathing? No Information not available 05/28/2022 What is your exercise level? None Information not available 05/28/2022 Mental Status Question Answer Note LastModified by Organizat ion Details LastModified Time Do you feel stressed (tense, restless, nervous, or anxious, or unable to sleep at night)? [id number] Information not available 05/28/2022 Do you have difficulty concentrating, remembering or making decisions? No Information no t available 05/28/2022 Family History Relationship Description Onset Age of this Age Resolved Age Notes LastModified by Organization Details LastModified Time Sister Type 2 diabetes mellitus bstears Not available 2021 10:27:35 Medical History No medical history recorded. Gynecological History Statement/Question Response Date of Last Colonoscopy Date of Last Mammogram 12/26/2021 Most Recent Bone Density Menses Monthly N Date of Last Pap Smear LMP Unknown Obstetrics History GPAL:G 0 P 0 0 0 0 Immunizations Vaccine Type Date Status Note Provider Nam e and Address Organization Details Recorded Time Influenza, split virus, quadrivalent, preservative 8 completed Vero Stears null, [place] - [facility] 09/03/2022 11:27:52 zoster recombinant 1 completed Vero Stears null, [place] - [facility] 09/03/2022 11:27:52 zoster recombinant 0 completed Vero Stears null, [place] - [facility] 09/03/2022 11:27:52 zoster recombinant 1 [facility] [place] [facility] 11:27:52 MMR 7 completed [facility] Ste[facility] [place] [facility] 11:27:52 COVID-19, mRNA, LNP-S, PF, 100 mcg/0.5mL dose or 50 mcg/0.25mL dose 1 completed Vero Stears null, [place] - [facility] 09/03/2022 11:27:52 COVID-19, mRNA, LNP-S, PF, 100 mcg/0.5mL dose or 50 mcg/0.25mL dose 1 completed Vero Stears null, [place] - [facility] 09/03/2022 11:27:52 COVID-19, mRNA, LNP-S, PF, 100 mcg/0.5mL dose or 50 mcg/0.25mL dose 1 completed Vero Stears null, [place] - [facility] 09/03/2022 11:27:52 pneumococcal polysaccharide PPV23 0 completed Vero Stears null, [place] - [facility] 09/03/2022 11:27:52 Tdap 1 completed Vero Stears null, [place] - [facility] 09/03/2022 11:27:52 Pneumococcal conjugate PCV 13 6 completed Vero Stears null, [place] - [facility] 09/03/2022 11:27:52 Influenza, split virus, trivalent, preservative 8 completed Vero Stears null, [place] - [facility] 09/03/2022 11:27:52 Influenza, split virus, trivalent, preservative 7 completed Vero Stears null, [place] - [facility] 09/03/2022 11:27:52 Influenza, split virus, trivalent, preservative 6 completed Vero Stears null, [place] - [facility] 09/03/2022 11:27:52 Influenza, split virus, trivalent, PF 2 completed [facility] [place] [facility] 11:27:52 Influenza, split virus, trivalent, PF 1 completed Vero Stears null, [facility] 11:27:52 Influenza, split virus, trivalent, PF 4 completed [facility] Stears [place] [facility] 11:27:52 Influenza, split virus, trivalent, PF 3 completed [facility] Stears [place], [place] [facility] 11:27:52 Hep B, adult 2 completed Vero Stears null, [facility] 09/[facility] 11:27:52 Hep A, adult 2 completed [facility]ero Stears [place], [place] [facility] 11:27:52 Influenza, split virus, quadrivalent, PF 6 completed Vero Stears null, [place] - [facility] 09/03/2022 11:27:52 Influenza, split virus, quadrivalent, PF 9 completed [facility] Stears [place], [place] [facility] 11:27:52 Influenza, split virus, quadrivalent, PF 5 completed Vero Stears null, [place] - [facility] 09/03/2022 11:27:52 Influenza, split virus, quadrivalent, PF 0 completed Vero Stears null, [place] - [facility] 09/03/2022 11:27:52 Hep A-Hep B 2 completed Vero ayala, GISEL[place] - [facility] 09/03/2022 11:27:52 Past Encounters Encounter ID Performer Location Encounter Start Date Encounter Closed Date Diagnosis/Indication Diagnosis SNOMED-CT Code Diagnosis ICD10 Code Diagnosis Note [id number] Mary Henry [address] [address] 05/28/2022 09:58:35 05/28/2022 11:06:38 Chronic back pain 506406883 G89.29 Type 2 jose betes mellitus 61868765 Z79.4 omnipod ordereddm packet given to pt Hypertensive disorder 38 077011 I10 Heart disease 38947756 I 51.9 Chronic ki dney disease stage 3 747078714 N18.30 Diabetic foot ulcer 3710 00057 E13.886 [id number] Mary Henry [address] [address] 09/03/2022 10:47:25 09/03/2022 12:32:31 Chronic kidney disease stage 3 659634966 N18.30 Hypertensive disorder 38 207391 I10 Type 2 jose betes mellitus 34462330 Z79.4 continue with omnipod training, labs to obtain baseline Chronic back pain 586703 002 G89.29 Heart disease 42960022 I 51.9 [id number] Mary Henry [address] [address] 04/22/2023 09:29:27 04/22/2023 11:55:30 Type 2 diabetes mellitus 36984804 Z79.4 will train on omnipod tomorrow at 1130 Body mass index 30+ - obesity 292999471 Z68.32 32.4 Obesity 295872588 E66.9 Chronic ki dney disease stage 3 237321643 N18.30 Heart disease 97372544 I 51.9 Hypertensive disorder 38 004111 I10 Uncontroll ed type 2 diabetes mellitus 733056441 E11.65 [id number] Mary Henry [address] [address] 03/26/2024 14:50:04 03/26/2024 15:51:17 Heart murmur 63068361 R01.1 echosee cardiology on at 11if any issues go to ed Type 2 jose ghada mellitus 68724861 Z79.4 obtain copy of labs from her other pcp.long discussion about med Hypertensive disorder 38 451433 I10 continue meds Heart disease 79484582 I 51.9 follow up with cardiology Chronic ki dney disease stage 3 354394019 N18.30 labs Health Concerns Section Related Observation LastModified by Organization Detai ls LastModified Time None Recorded Concern Status LastModified by Organization Details LastModified Time None Recorded Advance Directives Directive N: Payers Insurance Date Sequence Insurance Name Policy Number Policy Deng Covered Member ID Deng Member ID Guarantor Name 09/27/2024 1 [employer] [place] (MEDICARE REPLACEMENT/ ADVANTAGE - HMO) Mary Coronel [id number] Mary Coronel 09/27/2024 2 [employer] [place] (MEDICAID HMO) Mary Wilde Homer [id number] Mary Wilde Homer 09/27/2024 [employer] - [place] - [facility]-F[place] (MEDICARE) Mary Wilde Homer [id number] Mary Wilde Homer 09/27/2024 [place] [facility] (MEDICAID) Mary Wilde Homer [id number] Mary Coronel 05/01/2023 1 [place] Mary Wilde Homer [id number] Mary Wilde Homer Notes Date Note Type Note Provider Name and Address Organization Details Recorded Time 05/28/2022 text/html Mary is a 62 ye ar old female who presents to the office today for type 2 diabetes.Previous patient of Shiv states her last a1c was over 10.pt states even with the 4 injections she can not get her glucose under control.pt states she has a sore on her left foot on the 2nd toe Mary Henry, [employer] [address], [place], [address], [place] - [facility] 05/28/2022 14:18:03 09/03/2022 text/html Mary is a 62 ye ar old female who presents to the office today for a 3 month follow up ondiabetes.pt states she has a appointment tomorrow for her training for omnipod insulin pump. pt states she has been watching her glucose and its been running 120-160 on most days Mary DelgadoÁNGEL benitez [address], [place], [address], [place] - [facility] 09/03/2022 13:33:38 04/22/2023 text/html Mary is a 63 ye ar old female who presents to the office today for a diabetic follow up. pt states her glucose has been high. pt states she takes 5 shots per day and wears a dexcom. she has a omnipod but has not done thr training to get it started Ramóntiffanisavanah RodriguezÁNGEL peterson [address], [place], [address], [facility] - [facility] 05/01/2023 14:27:32 03/26/2024 text/html Diabetes F/UReported bypatient.Review finger sticks:fastin Labs:last A1C result: 7.1 Context:seeing eye doctor regularly; checking feet regularly; taking aspirin daily Associated Symptoms:no weight gain; no weight loss; no dizziness; no sweats; no headaches; no confusion; no increased thirst; no increased appetite; no increased urination; no blurred vision; no numbness of feet; no calluses on feet 63 yr old female presents for help with her omnipod update. She also wanted to discuss her ozempic. pt states she wants to change her ozempic due to what she hears on the tv and she is having stomach issues each time she eats Mary DelgadoÁNGEL benitez [address], [place], [address], [place] - [facility] 03/26/2024 16:02:49 OBGyn Episode No OBEpisode recorded.
--- OUTSIDE RECORDS SUMMARY | 2025-01-11 13:53 | XMS_ITS | Referral Summary ---
Author Organization [employer] Address [address] [place] [address] Care Team Providers Care Assistant Manager Retail Name Role Phone Provider, Not In System Primary Care Provider Un available Encounters Date Type Department Care Team Description 11/30/2024 1:43 AM EDT - 12/14/2024 5:30 PM EDT Hospital Encounter [facility] 5B Medical Telemetry Unit 1 [place] [address] Albert Garcia MD Shamsulddin, Haider, MD Zohary, Yasser, MD Majeed, Irfan, MD Edie, QUIQUE Thomas Enoch, MD Melena (Primary Dx); Anasarca Discharge Disposition: Home or Self Care 12/06/2024 Telephone [facility] - Elizabeth [address] [place] [address] Mimi Moreno, DAYANARA Appointment 12/01/2024 8:55 AM EDT Anesthesia Event [facility] Endoscopy 1 [place] [address] Isabell-Ashtyn Rowley MD 12/01/2024 9:19 AM EDT - 12/01/2024 9:50 AM EDT Surgery [facility] Endoscopy 1 [place] [address] Scott Daley MD EGD, WITH [...] the past 12 months, has t he [employer], or water [employer] threatened to shut off services in your [...] Do you speak a language other than Fijian at [facility]? No 11/30/2024 Do you want help with [...] Description 01/27/2025 10:45 AM EDT Office Visit [facility] Electrophysiology [address] [place] [address] Deysi Jon MD [address] [place] [address] [address] [place] [address] Procedures Procedure Name Priority Date/Time Associated Diagnosis [...] ANESTHESIA INTUBATION Routine 12/01/2024 9:01 AM EDT MS EGD FLEXIBLE FOREIGN BODY REMOVAL 12/01/2024 8:55 [...] of63 resultswithin the time period is included. [facility] Signature POC-GLUCOSE 203(H) 70 - 110 mg/dL 12/14/2024 3:42 PM EDT [facility] Comment: In the event of poor peripheral blood flow, venous or arterial blood should be used due to the potential of erroneous results. Notified Nurse RBV Plaster Applicator [id number] 12/14/2024 3:42 PM EDT [facility] Blood WHOLE BLOOD / Unknown 12/14/2024 3:41 PM EDT 12/14/2024 3:42 PM EDT Narrative [facility] - 12/14/2024 3:42 PM EDT Plaster Applicator ID is - [id number] us David Coffman PA-C POINT OF CARE TEST ORDERABLES Final Result [facility] [address] [phone] * ECG 12 lead (12/14/2024 9:10 AM EDT) Only the most recent of13 resultswithin the time period is included. [facility] VENTRICULAR RATE EKG/MIN 89 BPM GE MUSE ATRIAL RATE (MCT) 89 BPM GE MUSE MS Interval 146 ms GE MUSE QRS-INTERVAL (MSEC) 86 ms GE MUSE QT Interval 432 ms GE MUSE QTC Interval 525 ms GE MUSE P [place] 34 degrees GE MUSE R AXIS (MCT) -13 degrees GE MUSE T Wave [place] -2 degrees GE MUSE Robertson Diagnosis Normal sinus rhythm Septal infarct (cited on or before 14-DEC-2024 ) Confirmed by DEYSI JON M.D. ([id number]) on 12/14/2024 5:07:26 PM GE MUSE 12/14/2024 9:10 AM EDT 12/14/2024 5:07 PM EDT Deysi Jon MD ECG ORDERABLES Final Result GE MUSE * (ABNORMAL) CBC with automated diff (12/14/2024 2:54 AM EDT) Only the most recent of7 resultswithin the time period is included. [facility] WBC 1.4(LL) 4.0 - 10.0 K/ L 12/14/2024 3:45 AM EDT [facility] RBC 2.45(L) 3.93 - 5.22 M/ L 12/14/2024 3:45 AM EDT [facility] Hemoglobin 7.6(L) 11.2 - 15.7 GM/DL 12/14/2024 3:45 AM EDT [facility] Hematocrit 24.1(L) 34.1 - 44.9 % 12/14/2024 3:45 AM EDT [facility] MCV 98(H) 79 - 95 fL 12/14/2024 3:45 AM EDT [facility] MCH 31.0 25.6 - 32.2 pg 12/14/2024 3:45 AM EDT [facility] MCHC 31.5(L) 32.2 - 35.5 GM/DL 12/14/2024 3:45 AM EDT [facility] RDW 16.3(H) 11.7 - 14.4 % 12/14/2024 3:45 AM EDT [facility] Platelets 51(L) 140 - 375 K/CU MM 12/14/2024 3:45 AM EDT [facility] MPV 12.3 9.4 - 12.3 fL 12/14/2024 3:45 AM EDT [facility] % Neutros 54 34 - 71 % 12/14/2024 3:45 AM EDT [facility] % Lymphs 32 19 - 52 % 12/14/2024 3:45 AM EDT [facility] % Monos 14(H) 5 - 13 % 12/14/2024 3:45 AM EDT [facility] % Eos 0(L) 1 - 6 % 12/14/2024 3:45 AM EDT [facility] % Baso 1 0 - 1 % 12/14/2024 3:45 AM EDT [facility] NRBC Absolute <0.01 0 - 0.012 K/ul 12/14/2024 3:45 AM EDT [facility] # Neutros 0.76(L) 1.56 - 6.13 K/ L 12/14/2024 3:45 AM EDT [facility] # Lymphs 0.45(L) 1.18 - 3.74 K/ L 12/14/2024 3:45 AM EDT [facility] # Monos 0.19(L) 0.24 - 0.86 K/ L 12/14/2024 3:45 AM EDT [facility] # Eos <0.03(L) 0.04 - 0.36 K/ L 12/14/2024 3:45 AM EDT [facility] # Baso <0.03 0.01 - 0.08 K/ L 12/14/2024 3:45 AM EDT [facility] Immature Granulocytes-Re lative 0.00(L) 0.01 - 0.43 % 12/14/2024 3:45 AM EDT [facility] # IG <0.03 0.00 - 0.03 K/uL 12/14/2024 3:45 AM EDT [facility] Blood Venipuncture / Unknown 12/14/2024 2:54 AM EDT 12/14/2024 3:27 AM EDT Narrative [facility] - 12/14/2024 3:45 AM EDT When [...] PA-C LAB BLOOD ORDERABLES Final Re sult [facility] [address] [phone] * (ABNORMAL) Comprehensive metabolic panel (12/14/2024 2:54 AM EDT) Only the most recent of9 resultswithin the time period is included. Sodium 145 136 - 145 meq/L 12/14/2024 4:13 AM EDT [facility] Potassium 3.5 3.4 - 5.1 meq/L 12/14/2024 4:13 AM EDT [facility] Chloride 109 98 - 112 meq/L 12/14/2024 4:13 AM EDT [facility] CO2 27 22 - 29 meq/L 12/14/2024 4:13 AM EDT [facility] Calcium 8.6 8.4 - 10.2 mg/dL 12/14/2024 4:13 AM EDT [facility] Glucose 146(H) 82 - 115 mg/dL 12/14/2024 4:13 AM EDT [facility] BUN 67.7(H) 9.8 - 20.1 mg/dL 12/14/2024 4:13 AM EDT [facility] Creatinine 2.22(H) 0.57 - 1.11 mg/dL 12/14/2024 4:13 AM EDT [facility] BUN/Creatinine 30(H) 8 - 20 12/14/2024 4:13 AM [facility] eGFR (mL/min/1.73m2) 25(L) >=60 mL/min/1. 73m2 12/14/2024 4:13 AM [facility] Albumin 3.2(L) 3.5 - 5.0 g/dL 12/14/2024 4:13 AM [facility] Alkaline Phosphatase 56 40 - 150 U/L 12/14/2024 4:13 AM [facility] ALT 21 <=34 U/L 12/14/2024 4:13 AM [facility] Comment: ALT2 reagent used for testing does not contain P5P supplementation and therefore may miss ALT elevations in patients with B6 deficiency. This population may be as high as 10% in the [place], with risk factors including malabsorption, drug interactions, and alcoholic hepatitis. AST 52(H) 11 - 34 U/L 12/14/2024 4:13 AM [facility] Comment: AST2 reagent used for testing does not contain P5P supplementation and therefore may miss AST elevations in patients with B6 deficiency. This population may be as high as 10% in the [place], with risk factors including malabsorption, drug interactions, and alcoholic hepatitis. Total Bilirubin 0.9 0.2 - 1.2 mg/dL 12/14/2024 4:13 AM [facility] Protein, Total 5.9(L) 6.4 - 8.3 g/dL 12/14/2024 4:13 AM [facility] Globulin 2.7 2.5 - 4.1 g/dL 12/14/2024 4:13 AM [facility] Anion Gap 13(H) 4 - 12 12/14/2024 4:13 AM [facility] A/G Ratio 1.2 0.7 - 1.9 12/14/2024 4:13 AM [facility] Osmolality Calc 311.0 mOsm/kg 4:13 AM [facility] Blood Venipuncture / Unknown 12/14/2024 2:54 AM EDT 12/14/2024 3:26 AM EDT us David Coffman PA-C LAB BLOOD ORDERABLES Final Re sult Performing Organization Address City/[facility]/ZIP Co de Phone Number [facility] [address] [phone] * (ABNORMAL) CBC Scan (12/13/2024 3:15 AM EDT) Only the most recent of2 resultswithin the time period is included. [facility] Platelet Estimate Decreased (A) Adequate 12/13/2024 4:55 AM EDT [facility] RBC Morphology abnormal( A) Normal 12/13/2024 4:55 AM EDT [facility] Anisocytosis 1+ 12/13/2024 4:55 AM EDT [facility] Hypochromia 1+ 12/13/2024 4:55 AM EDT [facility] Ovalocytes 1+ 12/13/2024 4:55 AM EDT [facility] Blood Venipuncture / Unknown 12/13/2024 3:15 AM EDT 12/13/2024 3:27 AM EDT Venkatesh Stephen MD LAB BLOOD ORDERABLES Final Resul t Performing Organization Address [facility] Co de Phone Number [facility] [address] [phone] * (ABNORMAL) Hepatic function panel (12/13/2024 3:15 AM EDT) Pathologist [facility] Protein, Total 5.7(L) 6.4 - 8.3 g/dL 12/13/2024 4:13 AM EDT [facility] Albumin 3.1(L) 3.5 - 5.0 g/dL 12/13/2024 4:13 AM EDT [facility] Total Bilirubin 0.8 0.2 - 1.2 mg/dL 12/13/2024 4:13 AM EDT [facility] Bilirubin, Direct 0.4 0.0 - 0.5 mg/dL 12/13/2024 4:13 AM EDT [facility] Alkaline Phosphatase 53 40 - 150 U/L 12/13/2024 4:13 AM EDT [facility] Globulin 2.6 2.5 - 4.1 g/dL 12/13/2024 4:13 AM EDT [facility] A/G Ratio 1.2 0.7 - 1.9 12/13/2024 4:13 AM EDT [facility] AST 42(H) 11 - 34 U/L 12/13/2024 4:13 AM EDT [facility] Comment: AST2 reagent used for testing does not contain P5P supplementation and therefore may miss AST elevations in patients with B6 deficiency. This population may be as high as 10% in the [place], with risk factors including malabsorption, drug interactions, and alcoholic hepatitis. ALT 16 <=34 U/L 12/13/2024 4:13 AM EDT [facility] Comment: ALT2 reagent used for testing [...] MD LAB BLOOD ORDERABLES Final Resu lt [facility] [address] [phone] * (ABNORMAL) Basic Metabolic Panel (12/13/2024 3:15 AM EDT) Only the most recent of6 resultswithin the time period is included. Sodium 147(H) 136 - 145 meq/L 12/13/2024 4:13 AM EDT [facility] Potassium 3.5 3.4 - 5.1 meq/L 12/13/2024 4:13 AM EDT [facility] CO2 27 22 - 29 meq/L 12/13/2024 4:13 AM EDT [facility] Chloride 110 98 - 112 meq/L 12/13/2024 4:13 AM EDT [facility] Glucose 135(H) 82 - 115 mg/dL 12/13/2024 4:13 AM EDT [facility] BUN 71.9(H) 9.8 - 20.1 mg/dL 12/13/2024 4:13 AM EDT [facility] Creatinine 2.29(H) 0.57 - 1.11 mg/dL 12/13/2024 4:13 AM EDT [facility] BUN/Creatinine 31(H) 8 - 20 12/13/2024 4:13 AM EDT [facility] Calcium 8.5 8.4 - 10.2 mg/dL 12/13/2024 4:13 AM EDT [facility] Anion Gap 14(H) 4 - 12 12/13/2024 4:13 AM EDT [facility] eGFR (mL/min/1.73m2) 24(L) >=60 mL/min/1.7 3m2 12/13/2024 4:13 AM EDT [facility] Osmolality Calc 315.6 mOsm/kg 4:13 AM EDT [facility] Blood Venipuncture / Unknown 12/13/2024 3:15 AM EDT 12/13/2024 3:39 AM EDT us Venkatesh Stephen MD LAB BLOOD ORDERABLES Final Resul t [facility] [address] [phone] * US paracentesis (12/10/2024 11:37 AM EDT) [...] Ascites. ATTENDING PHYSICIAN: Dr. Haseeb Gil PHYSICIAN LAP POLISHER: Sujit Blackman PA-C FINDINGS: After informed consent [...] Ascites. ATTENDING PHYSICIAN: Dr. Haseeb Gil PHYSICIAN [employer] POLISHER: Sujit Blackman PA-C FINDINGS: After informed consent [...] Blackman PA-C. us Mary Carmen Mcfadden MD [facility] ORDERABLES Final Result * ALT (SGPT) (12/10/2024 9:53 AM EDT) ALT 12 <=34 U/L 12/10/2024 11:02 AM EDT [facility] Comment: ALT2 reagent used for testing [...] ORDERABLES Final Resul t Performing Organization Address City/[facility]/ZIP Co de Phone Number [facility] [address] [phone] * (ABNORMAL) AST (SGOT) (12/10/2024 9:53 AM EDT) Pathologist [facility] AST 39(H) 11 - 34 U/L 12/10/2024 11:02 AM EDT [facility] Comment: AST2 reagent used for testing does not contain P5P supplementation and therefore may miss AST elevations in patients with B6 deficiency. This population may be as high as 10% in the [place], with risk factors including malabsorption, drug interactions, and alcoholic hepatitis. [employer] has become aware of sulfasalazine and sulfapyridine [...] ORDERABLES Final Resul t Performing Organization Address City/[facility]/ZIP Co de Phone Number [facility] [address] [phone] * Magnesium (12/10/2024 9:53 AM EDT) Only the most recent of9 resultswithin the time period is included. Pathologist [facility] Magnesium 2.3 1.6 - 2.6 mg/dL 12/10/2024 11:02 AM EDT [facility] Blood Venipuncture / Unknown 12/10/2024 9:53 AM EDT 12/10/2024 10:39 AM EDT us Deysi Jon MD LAB BLOOD ORDERABLES Final Resul t [facility] [address] [phone] * XR chest AP portable (12/10/2024 9:10 [...] 7.35 - 7.45 12/10/2024 6:51 AM EDT [facility] pCO2, Arterial 49(H) 35 - 45 mm Hg 12/10/2024 6:51 AM EDT [facility] pO2, Arterial 119(H) 80 - 100 mm Hg 12/10/2024 6:51 AM EDT [facility] HCO3, Arterial 24 20 - 26 mmol/L 12/10/2024 6:51 AM T [facility] Base Excess, Arterial -2.4(L) -2.0 - 2.0 mmol/L 12/10/2024 6:51 AM EDT [facility] O2 Sat, Arterial >99.2 95.0 - 100.0 % 12/10/2024 6:51 AM EDT [facility] Comment:notified at read-anny k verification CTO2 ARTERIAL 11.9 mmol/L 12/10/2024 6:51 AM [facility] THB ARTERIAL 8.5(L) 12.0 - 18.0 g/dL 12/10/2024 6:51 AM [facility] SJ COLLECTION SITE Left Radial 12/10/2024 6:51 AM T [facility] Arterial Puncture Yes 12/10/2024 6:51 AM [facility] Blood Gas O2 Delivery Device Cannula 12/10/2024 6:51 AM [facility] Oxygen Flow Rate 4 12/11/19 6:51 AM [facility] Blood Gas PT Temperature C 37.0 12/10/2024 6:51 AM [facility] Sen's Test Acceptable 12/10/2024 6:51 AM [facility] ABG Number of Draw Attempts 1 12/10/2024 6:51 AM [facility] FIO2 12/10/2024 6:51 AM EDT [facility] Blood Gas Temperature Corrected Results No No 12/10/2024 6:51 AM EDT [facility] Blood, Arterial Collection / Unknown 12/10/2024 6:42 AM EDT 12/10/2024 6:51 AM EDT us Blanka Alvarez MD LAB BLOOD ORDERABLES Final Re sult [facility] [address] [phone] * (ABNORMAL) CBC - Hemogram (SJ-BKR) (12/09/2024 3:38 AM EDT) Only the most recent of8 resultswithin the time period is included. WBC 2.4(L) 4.0 - 10.0 K/ L 12/09/2024 3:59 AM EDT [facility] RBC 2.83(L) 3.93 - 5.22 M/ L 12/09/2024 3:59 AM EDT [facility] Hemoglobin 8.5(L) 11.2 - 15.7 GM/DL 12/09/2024 3:59 AM EDT [facility] Hematocrit 28.0(L) 34.1 - 44.9 % 12/09/2024 3:59 AM EDT [facility] MCV 99(H) 79 - 95 fL 12/09/2024 3:59 AM EDT [facility] MCH 30.0 25.6 - 32.2 pg 12/09/2024 3:59 AM EDT [facility] MCHC 30.4(L) 32.2 - 35.5 GM/DL 12/09/2024 3:59 AM EDT [facility] RDW 17.2(H) 11.7 - 14.4 % 12/09/2024 3:59 AM EDT [facility] Platelets 55(L) 140 - 375 K/CU MM 12/09/2024 3:59 AM EDT [facility] MPV 11.5 9.4 - 12.3 fL 12/09/2024 3:59 AM EDT [facility] Blood Venipuncture / Unknown 12/09/2024 3:38 AM EDT 12/09/2024 3:45 AM EDT Mary Carmen Mcfadden MD LAB BLOOD ORDERABLES Final Resu lt [facility] [address] [place] [address], [facility] [phone] * Erythropoietin(SENDOUT) (12/07/2024 3:59 AM EDT) Erythropoietin 19 4 - 27 mU/mL 12/08/2024 2:30 PM EDT Factor 14 Comment: INTERPRETIVE INFORMATION: Erythropoietin Normal serum concentrations [...] may benefit from therapy with recombinant EPO ([facility] [id number],1989). Performed By: [facility] [address] [place] [id number] [employer]: Lalo Mortensen MD, PhD CLIA Number: [id number] Blood Venipuncture / Unknown 12/07/2024 3:59 AM EDT 12/07/2024 4:11 AM EDT Ariel Mills MD LAB BLOOD ORDERABLES Final Res ult Performing Organization Address City/[facility]/ZIP Co de Phone Number [place] [id number] [phone] * Ammonia (12/07/2024 3:59 AM EDT) Only the most recent of8 resultswithin the time period is included. Ammonia 44 18 - 72 mol/L 12/07/2024 4:37 AM EDT [facility] Blood Venipuncture / Unknown 12/07/2024 3:59 AM EDT 12/07/2024 4:22 AM EDT Timothy Bai MD LAB BLOOD ORDERABLES Final Result Performing Organization Address [facility] Co de Phone Number [facility] [address] [phone] * (ABNORMAL) Ferritin (12/06/2024 3:13 AM EDT) Only the most recent of2 resultswithin the time period is included. Ferritin 256.82(H) 4.63 - 204.00 ng/mL 12/06/2024 8:25 AM EDT [facility] Blood Venipuncture / Unknown 12/06/2024 3:13 AM EDT 12/06/2024 3:50 AM EDT Ariel Mills MD LAB BLOOD ORDERABLES Final Res ult Performing Organization Address [facility] Co de Phone Number [facility] [address] [phone] * (ABNORMAL) Hemoglobin (12/05/2024 3:36 PM EDT) Only the most recent of11 resultswithin the time period is included. Hemoglobin 8.1(L) 11.2 - 15.7 GM/DL 12/05/2024 3:57 PM EDT [facility] Blood Venipuncture / Unknown 12/05/2024 3:36 PM EDT 12/05/2024 3:47 PM EDT us Timothy Bai MD LAB BLOOD ORDERABLES Final Result [facility] [address] [phone] * ANCA Vasculitis Profile(SENDOUT) (12/04/2024 8:15 AM EDT) Pathologist [facility] Myeloperoxidase (MPO) Ab, IgG 0 0 - 19 AU/mL 12/07/2024 8:52 AM EDT Factor 14 Comment: INTERPRETIVE INFORMATION: Myeloperoxidase Abs, IgG 19 AU/mL or Less ......... Negative 20-25 AU/mL .............. Equivocal 26 AU/mL or Greater ...... Positive Approximately 90% of patients with a P-ANCA pattern by IFA have antibodies specific for MPO. Serine Proteinase 3 (PR3) Ab, IgG 0 0 - 19 AU/mL 12/07/2024 8:52 AM EDT Factor 14 Comment: INTERPRETIVE INFORMATION: Serine Proteinase 3, IgG 19 AU/mL or Less ........ Negative 20-25 AU/mL ............. Equivocal 26 AU/mL or Greater ..... Positive Approximately 85% of patients with a C-ANCA pattern by IFA have antibodies specific for PR3. ANCA IFA Titer <1:20 <1:20 12/07/2024 8:52 AM EDT [facility] ANCA IFA Pattern None Detected None Detected 12/07/2024 8:52 AM EDT [facility] Comment: INTERPRETIVE INFORMATION: ANCA IFA Pattern Neutrophil Cytoplasmic Antibodies (C-ANCA = granular cytoplasmic staining, P-ANCA = perinuclear staining) are found in the serum of over 90 percent of patients with certain necrotizing systemic vasculitides, and usually in less than 5 percent of patients with collagen vascular disease or arthritis. Performed By: [facility] [address] [place], [place] [id number] Poultry Culler: Lalo Mortensen MD, PhD CLIA Number: [id number] Blood Venipuncture / Unknown 12/04/2024 8:15 AM EDT 12/04/2024 8:32 AM EDT us Hema Cervantes MD LAB BLOOD ORDERABLES Final Re sult [facility] [address] [place] [address], [facility] [phone] * JEANA Reflexive Profile(SENDOUT) (12/04/2024 8:15 AM EDT) Anti-Nuclear Ab (JEANA), IgG by SHARON None Detected None Detected 12/06/2024 3:51 PM EDT [facility] 14 Comment: No Anti-Nuclear Antibodies (JEANA) detected by SHARON. The Extractable Nuclear Antigen Antibodies ([employer], Llanes, SSA 52, SSA 60, Scleroderma, Lilia-1 and SSB) and Double Stranded DNA (dsDNA) Antibody, IgG will not be performed. If suspicion of connective tissue disease is strong, and JEANA is negative by SHARON, consider testing for JEANA by IFA ([id number]). INTERPRETIVE INFORMATION: Anti-Nuclear Antibodies (JEANA), IgG by SHARON Antinuclear Antibodies (JEANA), IgG by SHARON: JEANA specimens are screened using enzyme-linked immunosorbent assay (SHARON) methodology. All SHARON results reported as Detected are further tested by indirect fluorescent assay (IFA) using HEp-2 substrate with an IgG-specific conjugate. The JEANA SHARON screen is designed to detect antibodies against dsDNA, histones, SS-A (Ro), SS-B (La), Llanes, Llanes/[employer], Scl-70, Lilia-1, centromeric proteins, other antigens extracted from the HEp-2 cell nucleus. JEANA SHARON assays have been reported to have lower sensitivities than JEANA IFA for systemic autoimmune rheumatic diseases (SARD). Negative results do not necessarily rule out SARD. Performed By: [facility] [address] [place] [address] Poultry Culler: Lalo Mortensen MD, PhD CLIA Number: [id number] Blood Venipuncture / Unknown 12/04/2024 8:15 AM EDT 12/04/2024 8:32 AM EDT us Hema Cervantes MD LAB BLOOD ORDERABLES Final Re sult [address] [phone] * Phosphorus (12/04/2024 3:34 AM EDT) Phosphorus 4.2 2.5 - 4.5 mg/dL 12/04/2024 4:04 AM EDT [facility] Blood Venipuncture / Unknown 12/04/2024 3:34 AM EDT 12/04/2024 3:41 AM EDT us Kirsty Tuttle APRN LAB BLOOD ORDERABLES Final R esult Performing Organization Address [facility] Co de Phone Number [facility] [address] [phone] * Creatine Kinase (CK) (12/03/2024 7:39 AM EDT) Only the most recent of2 resultswithin the time period is included. Total CK 55 29 - 168 U/L 12/03/2024 6:19 PM EDT [facility] Blood Venipuncture / Unknown 12/03/2024 7:39 AM EDT 12/03/2024 5:52 PM EDT us Hema Cervantes MD LAB BLOOD ORDERABLES Final Re sult Performing Organization Address City/[facility]/ZIP Co de Phone Number [facility] [address] [phone] * Transfuse RBC (12/02/2024 5:03 PM EDT) [...] Pancytopenia. ATTENDING RADIOLOGIST: Dr. Haseeb Gil. PHYSICIAN LAP POLISHER: Sandra Ramsey PA-C PROCEDURE: After informed consent [...] Pancytopenia. ATTENDING RADIOLOGIST: Dr. Haseeb Gil. PHYSICIAN LAP POLISHER: Sandra Ramsey PA-C PROCEDURE: After informed consent [...] by Sandra Ramsey PA-C. Rommel Batista MD [facility] CT ORDERABLES Final Result * [facility] BONE MARROW SMEAR, ASPIRATION, AND STAIN (12/02/2024 12:06 PM EDT) AP RESULT See Note: [facility] Comment: [facility] [address] [place] [address] or [phone] Joe Carlos M.D., Audio Visual Arts Director PATIENT NAME LABORATORY NO. MARY OLIVA. [id number] [facility] AGE SEX SSN CLIENT REF # [id number] F [id number] 1 [place] [address] REQUESTING Mirtha. ATTENDING Aleksandr. COPY TO.. ROMMEL BATISTA DATE COLLECTED DATE RECEIVED DATE REPORTED 12/02/2024 12/02/2024 12/06/2024 ADDENDUM PRESENT ADDENDUM: Cytogenetics shows a normal female karyotype, 46,XX[20]. The original diagnosis remains unchanged. Verified by Heydi Mak M.D., MPH on 12/13/2024 Professional interpretation rendered by Heydi Mak M.D., MPH at [facility], [address] [place] [address]. DIAGNOSIS: PERIPHERAL SMEAR , BONE MARROW ASPIRATION [...] CD38, CD45, CD56, CD57, CD117, CD123, HLA-DR, Spofford, and Lambda. These tests use analyte specific [...] rendered by Heydi Mak M.D., MPH at &[facility], [facility], [address] [place] [address]. GROSS DESCRIPTION: A. Received 1 peripheral blood smear slide for review. B. Received 5 bone marrow aspirate smear slides for review. 4 additional bone marrow aspirate smear slides made at [facility]. C. Received in a purple top [...] BY: Heydi Mak M.D., MPH CPT CODES: 95777, 2FLP, 30046, [id number], [id number], 20348, 53957, [id number] Bone Marrow BONE MARROW STRUCTURE / Unknown 12/02/2024 12:06 PM EDT us Rommel Batista MD PATHOLOGY/CYTOLOGY ORDERABLES Edited Result - Final [facility] [address] [place] [address] * Prepare RBC: 1 Units (12/02/2024 9:36 AM EDT) Only the most recent of2 resultswithin the time period is included. Issue Date/Time [id number] [facility] ([place]) Product Identification Red Blood Cells [facility] ([place]) Product Code [id number] [facility] ([place]) Status Information Transfused [facility] ([place]) Unit Number [id number] [facility] BLOOD [facility] ([place]) Blood Type 5100 [facility] ([place]) Cross Match Results Compatible [facility] ([place]) us Timothy Bai MD [id number] BANK PRO DUCT ORDERABLES Final Result Performing Organization Address [facility] Co de Phone Number [facility] ([place]) [address] [place] [address], [facility] [phone] * (ABNORMAL) Hemoglobin and hematocrit (12/02/2024 7:40 AM EDT) Hemoglobin 7.4(L) 11.2 - 15.7 GM/DL 12/02/2024 9:43 AM EDT [facility] Hematocrit 23.4(L) 34.1 - 44.9 % 12/02/2024 9:43 AM EDT [facility] Blood Venipuncture / Unknown 12/02/2024 7:40 AM EDT 12/02/2024 7:47 AM EDT us Timothy Bai MD LAB BLOOD ORDERABLES Final Result Performing Organization Address [facility] Co de Phone Number [facility] [address] [phone] * AN SINGLE LUMEN INTUBATION (12/01/2024 9:01 [...] ABO/Rh O Positive 12/01/2024 4:53 AM EDT [facility] ([place]) Antibody Screen Negative 12/01/2024 4:53 AM EDT [facility] ([place]) HISTCHK HIST CHECK PERFORMED 12/01/2024 4:53 AM EDT [facility] ([place]) Blood Venipuncture / Unknown 12/01/2024 7:08 AM EDT 12/01/2024 7:15 AM EDT us Denilson Hodgson DO [facility] BLOOD [facility] TEST ORDERABLES Final Result Performing Organization Address [facility] Co de Phone Number [facility] ([place]) [address] [place] [address] [phone] * ABO/RH Confirmation/Retype (12/01/2024 4:06 AM EDT) RETYPE O Positive 12/01/2024 5:15 AM EDT [facility] ([place]) Comment:[id number] Blood Venipuncture / Unknown 12/01/2024 4:06 AM EDT 12/01/2024 5:14 AM EDT Timothy Bai MD [facility] BLOOD [facility] TEST ORDERA BLES Final Result Performing Organization Address [facility]/ZIP Co de Phone Number [facility] ([place]) [address] [place] [address] [place] [address], [facility] [phone] * Ultrasound renal limited (11/30/2024 4:19 PM [...] by SABINE Yang. us Destiney Llanes APRN [facility] US ORDERABLES Final Res ult * DIFFERENTIAL, BODY FLUID (11/30/2024 4:03 PM EDT) Neutrophils Fluid 5 0 - 25 % 025 8:49 PM EDT [facility] Lymphocytes Fluid 46 % 025 8:49 PM EDT [facility] Unidentified Mononuclear Cells BF 49 0 - 0 % 11/30/2024 8:49 PM EDT [facility] Peritoneal Fluid BODY FLUID / Unknown 11/30/2024 4:03 PM EDT 11/30/2024 4:33 PM EDT Huey Hurtado MD BODY FLUIDS AND STOOLS ORDERABLE S Final Result [facility] [address] [phone] * [facility] Non-Metal Hanging Supervisor Cytology (11/30/2024 4:03 PM EDT) AP RESULT See Note: PATHOLOGY AND CYTOLOGY LABORATORY Comment: [facility] [address] [place] [address] or [phone] Joe Carlos M.D., Audio Visual Arts Director PATIENT NAME LABORATORY NO. MARY OLIVA. [id number] AGE SEX SSN CLIENT REF # [facility] 64 1960 F [id number] 1 [facility] REQUESTING Aleksandr ATTENDING Aleksandr. [place] [address] HUEY HURTADO DATE COLLECTED DATE RECEIVED DATE REPORTED 11/30/2024 12/01/2024 12/02/2024 DIAGNOSIS: PERITONEAL FLUID: Negative for malignant cells. MICROSCOPIC DESCRIPTION: Scattered mesothelial cells and chronic inflammatory cells are present. Professional interpretation rendered by John Sanchez M.D., F.C.A.P. at [facility], [address] [place] [address]. CLINICAL HISTORY: Melena Anasarca Acute renal failure SPECIMENS SUBMITTED: PERITONEAL FLUID GROSS SPECIMEN DESCRIPTION: 40 ccs of hazy, light yellow fluid, scant sediment, received in fixative ThinPrep slides prepared. Cell block has been examined. REST ROOM ATTENDANT: SVITLANA HERNANDEZ (ASCP) REVIEWED, DIAGNOSED AND ELECTRONICALLY SIGNED BY: John Sanchez M.D., F.C.A.P. CPT CODES: 57404, 44658 Peritoneal Fluid BODY FLUID / Unknown 11/30/2024 4:03 PM EDT us Huey Hurtado MD PATHOLOGY/CYTOLOGY ORDERABLES Fi nal Result Performing Organization Address City/[facility]/ZIP Co de Phone Number [facility]Y [facility]TOLOGY LABORATORY [address] * Body Fluid/CSF - Path Review (SJ) (11/30/2024 4:03 PM EDT) SENT TO PATHOLOGY FOR REVIEW Yes 12/03/2024 6:54 AM EDT [facility] Scan Result Mesothelial cells. MD German 12/02/2024 12/03/2024 6:54 AM EDT [facility] Peritoneal Fluid BODY FLUID / Unknown 11/30/2024 4:03 PM EDT 11/30/2024 4:33 PM EDT us Huey Hurtado MD BODY FLUIDS AND STOOLS ORDERABLE S Final Result Performing Organization Address City/[facility] Co de Phone Number [facility] [address] [phone] * Glucose, body fluid (11/30/2024 4:03 PM EDT) Glucose, Body Fluid 107 See Comment mg/dL 12/01/2024 7:10 AM EDT [facility] BODY FLUID TYPE Peritoneal 12/01/2024 7:10 AM EDT [facility] Body Fluid PERITONEAL FLUID / Unknown 11/30/2024 4:03 PM EDT 12/01/2024 6:52 AM EDT Narrative [facility] - 12/01/2024 7:10 AM EDT This test has been modified from the cotton picker's instructions and its performance characteristics were determined by the laboratory. The reference intervals and other method performance specifications are unavailable for this test. It is recommended to interpret body fluid concentrations in comparison with the corresponding serum or plasma concentrations and to integrate test results into the clinical context. us Timothy Bai MD BODY FLUIDS AND STOOLS ORD ERABLES Final Result [facility] [address] [phone] * Anaerobic Culture (11/30/2024 4:03 PM EDT) Result No Anaerobic growth 12/05/2024 6:34 AM EDT [facility] Peritoneal Fluid BODY FLUID / Unknown 11/30/2024 4:03 PM EDT 11/30/2024 4:[address] [facility] - 12/05/2024 6:34 AM EDT Specimen Description: peritoneal fluid us Huey Hurtado MD MICROBIOLOGY - GENERAL ORDERABLE S Final Result Performing Organization Address [facility]/ZIP Co de Phone Number [facility] [address] [phone] * Body Fluid Culture + Gram Stain (11/30/2024 4:03 PM EDT) Result No growth 12/03/2024 9:07 AM EDT [facility] Gram Stain Result No organisms seen 12/03/2024 9:07 AM EDT [facility] Gram Stain Result No cells seen 12/03/2024 9:07 AM EDT [facility] Peritoneal Fluid BODY FLUID / Unknown 11/30/2024 4:03 PM EDT 11/30/2024 4:34 PM EDT Narrative [facility] - 12/03/2024 9:07 AM EDT Specimen Description: peritoneal fluid us Huey Hurtado MD MICROBIOLOGY - GENERAL ORDERABLE S Final Result Performing Organization Address City/[facility]/ZIP Co de Phone Number [facility] [address] [phone] * (ABNORMAL) Body fluid cell count with differential (11/30/2024 4:03 PM EDT) Appearance Cloudy(A) Clear 11/30/2024 8:49 PM EDT [facility] Color Yellow 11/30/2024 8:49 PM EDT [facility] BODY FLUID TYPE Peritoneal 11/30/2024 8:49 PM EDT [facility] Auto WBC/Nucleated Cells BF 85 /uL 11/30/2024 8:49 PM EDT [facility] Comment: Please refer to specific WBC/Nucleated Cell Count Body Fluid reference ranges below: For Pleural: 0-1000 Peritoneal: 0-1000 Pericardial:0-1000 Synovial: 0-200 Auto RBC BF <3,000 /uL 11/30/2024 8:49 PM EDT [facility] Comment: Please refer to specific RBC Cell Count Body Fluid reference ranges below: Pleural: 0-10,000 Peritoneal: 0-10,000 Pericardial:0-10,000 Synovial:0-30 Peritoneal Fluid BODY FLUID / Unknown 11/30/2024 4:03 PM EDT 11/30/2024 4:[address] [facility] - 11/30/2024 8:49 PM EDT There is normally no readily obtainable pleural, peritoneal and pericardial fluid, hence normal elements for these potential fluids are not defined. us Huey Hurtado MD BODY FLUIDS AND STOOLS ORDERABLE S Final Result [facility] [address] [place] [address] * Protein, body fluid (11/30/2024 4:03 PM EDT) Protein, Fluid 1.9 See Comment g/dL 12/01/2024 7:10 AM EDT [facility] BODY FLUID TYPE Peritoneal 12/01/2024 7:10 AM EDT [facility] Body Fluid PERITONEAL FLUID / Unknown 11/30/2024 4:03 PM EDT 12/01/2024 6:[address] [facility] - 12/01/2024 7:10 AM EDT This test has been modified from the cotton picker's instructions and its performance characteristics were determined [...] ERABLES Final Result Performing Organization Address [facility] Co de Phone Number [facility] [address] [phone] * Lactate dehydrogenase (LDH), body fluid (11/30/2024 4:03 PM EDT) LDH, Fluid 71 See Comment U/L 11/30/2024 6:19 PM EDT [facility] BODY FLUID TYPE Peritoneal 11/30/2024 6:19 PM EDT [facility] Peritoneal Fluid BODY FLUID / Unknown 11/30/2024 4:03 PM EDT 11/30/2024 4:33 PM EDT Narrative [facility] - 11/30/2024 6:19 PM EDT This test has been modified from the cotton picker's instructions and its performance characteristics were determined [...] S Final Result Performing Organization Address [facility] de Phone Number [facility] [address] [phone] * (ABNORMAL) Urinalysis, Reflex Microscopic and Culture If Indicated (11/30/2024 11:35 AM EDT) Color, UA Light Yellow 11/30/2024 12:06 PM EDT [facility] Clarity, UA Turbid(A) Clear 11/30/2024 12:06 PM EDT [facility] Specific [place], UA 1.011 1.005 - 1.030 11/30/2024 12:06 PM EDT [facility] pH, UA 5.0(L) 6.0 - 8.0 11/30/2024 12:06 PM EDT [facility] Leukocytes, UA 500 Félix/uL(A) Negative 11/30/2024 12:06 PM EDT [facility] Nitrite, UA Negative Negative 11/30/2024 12:06 PM EDT [facility] Protein, UA Negative Negative 11/30/2024 12:06 PM EDT [facility] Glucose, UA Normal Normal 11/30/2024 12:06 PM EDT [facility] Ketones, UA Negative Negative 11/30/2024 12:06 PM EDT [facility] Bilirubin, UA Negative Negative 11/30/2024 12:06 PM EDT [facility] Blood, UA Negative Negative 11/30/2024 12:06 PM EDT [facility] Urobilinogen, UA Normal Normal 11/30/2024 12:06 PM EDT [facility] Specimen Source Urine, Clean Catch 11/30/2024 12:06 PM EDT [facility] Urine URINE SPECIMEN COLLECTION, CLEAN CATCH / Unknown 11/30/2024 11:35 AM EDT 11/30/2024 11:41 AM EDT us Destiney Llanes YOUTH PROGRAM DIRECTOR URINE ORDERABLES Final Resu lt [facility] [address] [phone] * (ABNORMAL) Urinalysis Microscopic Only (11/30/2024 11:35 AM EDT) WBC, UA 21-50(A) None Seen /HPF 11/30/2024 12:06 PM EDT [facility] RBC, UA 0-2(A) None Seen /HPF 11/30/2024 12:06 PM EDT [facility] Bacteria, UA 1+(A) None Seen, Trace 11/30/2024 12:06 PM EDT [facility] Mucus 1+(A) None Seen 11/30/2024 12:06 PM EDT [facility] SQUAMOUS EPITHELIAL 3-5(A) None Seen /HPF 11/30/2024 12:06 PM EDT [facility] HYALINE CASTS 21-50(A) None Seen /LPF 11/30/2024 12:06 PM EDT [facility] Urine URINE SPECIMEN COLLECTION, CLEAN CATCH / Unknown 11/30/2024 11:35 AM EDT 11/30/2024 11:41 AM EDT us Destiney Llanes APRN URINE ORDERABLES Final Resu lt [facility] [address] [phone] * Urea Nitrogen, random urine (11/30/2024 11:35 AM EDT) Urea Nitrogen, Ur 305 mg/dL 11/30/2024 12:36 PM EDT [facility] Comment:Reference Range not established Urine 11/30/2024 11:3 5 AM EDT 11/30/2024 12:15 PM EDT us Hill Boo MD URINE ORDERABLES Final Result Performing Organization Address [facility] Co de Phone Number [facility] [address] [place] [address] * Protein / creatinine ratio, urine (11/30/2024 11:35 AM EDT) Creatinine, Ur 62.00 47.00 - 110.00 mg/dL 11/30/2024 12:36 PM EDT [facility] Protein Creatinine Ratio 0.19 <=0.20 11/30/2024 12:36 PM EDT [facility] Protein, Urine 12 1 - 14 mg/dL 11/30/2024 12:36 PM EDT [facility] Urine 11/30/2024 11:3 5 AM EDT 11/30/2024 12:15 PM EDT us Hill Boo MD URINE ORDERABLES Final Result Performing Organization Address [facility]/ZIP Co de Phone Number [facility] [address] [phone] * Sodium, random urine (11/30/2024 11:35 AM EDT) Sodium Urine 83 See Comment meq/L 11/30/2024 12:36 PM EDT [facility] Comment:Reference Range not established Urine 11/30/2024 11:3 5 AM EDT 11/30/2024 12:15 PM EDT us Hill Boo MD URINE ORDERABLES Final Result Performing Organization Address [facility] Co de Phone Number [facility] [facility] [address] [phone] * Urine Culture (11/30/2024 11:35 AM EDT) Result Recollect Specimen - 3 or more organisms suggests contamination 12/01/2024 6:49 AM EDT [facility] Urine URINE SPECIMEN COLLECTION, CLEAN CATCH / Unknown 11/30/2024 11:35 AM EDT 11/30/2024 11:41 AM EDT us Destiney Llanes APRN MICROBIOLOGY - GENERAL ORDE [facility] Final Result Performing Organization Address [facility] Co de Phone Number [facility] [address] [phone] * (ABNORMAL) Monoclonal Protein Study, Expanded Panel(SENDOUT) (11/30/2024 11:01 AM EDT) Total Protein, Serum 6.2(L) 6.3 - 8.2 g/dL 12/03/2024 12:57 PM EDT [facility] Albumin 2.71(L) 3.75 - 5.01 g/dL 12/03/2024 12:57 PM EDT [facility] Alpha 1 Globulin 0.34 0.19 - 0.46 g/dL 12/03/2024 12:57 PM EDT [facility] Alpha 2 Globulin 0.38(L) 0.48 - 1.05 g/dL 12/03/2024 12:57 PM [facility] Beta Globulin 1.30(H) 0.48 - 1.10 g/dL 12/03/2024 12:57 PM [facility] Gamma 1.47 0.62 - 1.51 g/dL 12/03/2024 12:57 PM [facility] Immunofixation MAEGAN Done 12/03/2024 12:57 PM [facility] Immunoglobulin G 1484 768 - 1632 mg/dL 12/03/2024 12:57 PM [facility] Immunoglobulin A 686(H) 68 - 408 mg/dL 12/03/2024 12:57 PM [facility] Immunoglobulin M 126 35 - 263 mg/dL 12/03/2024 12:57 PM [facility] Monoclonal Protein Not Applicable <=0.00 g/dL 12/03/2024 12:57 PM [facility] [place] Qnt Free Light Chains 173.10(H) 3.30 - 19.40 mg/L 12/03/2024 12:57 PM [facility] Comment: INTERPRETIVE INFORMATION: [place] Qnt Free Light Chains Undetected antigen excess [...] conjunction with other clinical and laboratory findings. [place]/Lambda Free Light Chain Ratio 1.40 0.26 - 1.65 12/03/2024 12:57 PM [facility] SPEP/MAEGAN Interpretation See Note 12/03/2024 12:57 JOHNS [...] Serum See Note 12/03/2024 12:57 PM EDT [facility] Comment: Authorized individuals can access the [facility] Enhanced Report with an [facility] Connect account using the following link. Your local lab can assist you in obtaining the patient report if you don't have a Connect account. [email or web address] Performed By: [facility] [address] [place] [address] Poultry Culler: Lalo Mortensen MD, PhD CLIA Number: [id number] Blood Venipuncture / Unknown 11/30/2024 11:01 AM EDT 11/30/2024 12:17 PM EDT Hill Boo MD LAB BLOOD ORDERABLES Final Resu lt [facility] [address] [place] [address], [facility] [phone] * Alpha Fetoprotein Tumor Marker(SENDOUT) (11/30/2024 11:01 AM EDT) Alpha Fetoprotein Tumor Marker 2 0 - 9 ng/mL 12/01/2024 3:41 PM EDT [facility] Comment: INTERPRETIVE INFORMATION: Alpha Fetoprotein Tumor Marker [...] reference intervals for this test in the [facility] Laboratory Test Directory ([employer]). Performed By: [facility] [address] [place] [address] Poultry Culler: Lalo Mortensen MD, PhD CLIA Number: [id number] Blood Venipuncture / Unknown 11/30/2024 11:01 AM EDT 11/30/2024 11:06 AM EDT Destiney Llanes APRN LAB BLOOD ORDERABLES Final Result Performing Organization Address [facility] Co de Phone Number [facility] [address] [phone] * (ABNORMAL) Vitamin D, 25-Hydroxy (11/30/2024 8:20 AM EDT) Vitamin D 25-Hydroxy 22.0(L) 30 - 80 ng/mL 11/30/2024 9:48 AM EDT [facility] Blood Venipuncture / Unknown 11/30/2024 8:20 AM EDT 11/30/2024 9:08 AM EDT us Timothy Bai MD LAB BLOOD ORDERABLES Final Result Performing Organization Address [facility] Co de Phone Number [facility] [address] [phone] * Hemoglobin A1c (11/30/2024 8:20 AM EDT) Hemoglobin A1C 4.9 4.0 - 5.6 % 11/30/2024 9:17 AM EDT [facility] Comment: Hemoglobin A1C levels are related to mean glucose during the preceding 2-3 months. Less than 7% demonstrates glycemic control in diabetic patients. Hemoglobin AlC % Suggested Diagnosis > or = 6.5 Diabetic 5.7 - 6.4 Prediabetic <5.7 Non-diabetic eAVG Glucose 93.93 70 - 126 mg/dL 11/30/2024 9:17 AM EDT [facility] Blood Venipuncture / Unknown 11/30/2024 8:20 AM EDT 11/30/2024 9:07 AM EDT us Huey Hurtado MD LAB BLOOD ORDERABLES Final Resul t [facility] [address] [place] [id number] [phone] * ECHO COMPLETE (DOPPLER / COLOR) WO CONTRAST (11/30/2024 7:50 AM EDT) Anatomical Region Laterality Modality Heart Vascular Ultraso und 11/30/2024 7:25 AM EDT Narrative 11/30/2024 10:46 AM EDT TRANSTHORACIC ECHOCARDIOGRAPHY REPORT Demographics Patient Name: RIN JONES : 1960 Age: 64 year(s) Corporate ID Number: [id number] Gender Female [employer] Supervisor: Giovanna Rock Height: 67 inches [facility] Referring Physician: HUEY HURTADO Weight: 225 [...] 1.35 m/s E/A ratio: 0.97 m/s Volume [id number] LV length: 8.51 cm ml Volume iwucjvam23.96 ml LVOT diameter: 1.79 cm Normal sized [...] Valve TR velocity: 2.51 m/s TR gradient: 25.04236 mmHg Estimated RAP: 3 mmHg RVSP: 28.12 [...] 1960 Age: 64 year(s) Corporate ID Number: [id number] Gender Female [employer] Supervisor: Giovanna Rock Height: 67 inches [facility] Referring Physician: HUEY HURTADO Weight: 225 pounds Interpreting JESSICA RAYMOND MD BMI: 35.24 kg/m^2 Physician: Date of Service: 11/30/2024 Blood Pressure: 118/59 mmHg Room Number: 579 Type of Study: TTE procedure: ECHO COMPLETE (DOPPLER / COLOR) W OR WO CONTRAST. Patient Status: Routine [facility]: Adequate visualization History/Tech Notes: Indication: shortness [...] Valve TR velocity: 2.51 m/s TR gradient: 25.18760 mmHg Estimated RAP: 3 mmHg RVSP: 28.12 [...] in 5 days 12/05/2024 5:01 AM EDT [facility] Blood ENTIRE RIGHT UPPER ARM / Unknown Venipuncture / Unknown 11/30/2024 3:42 AM EDT 11/30/2024 4:09 AM EDT us Huey Hurtado MD MICROBIOLOGY - GENERAL ORDERABLE S Final Result [facility] [address] [place] [address], [facility] [phone] * Lactic Acid with reflex (11/30/2024 3:40 AM EDT) Lactic Acid Level (mmol/L) 0.9 0.5 - 2.2 mmol/L 11/30/2024 5:37 AM EDT [facility] Blood Venipuncture / Unknown 11/30/2024 3:40 AM EDT 11/30/2024 4:10 AM EDT us Huey Hurtado MD LAB BLOOD ORDERABLES Final Resul t Performing Organization Address [facility] Co de Phone Number [facility] [address] [phone] * Procalcitonin (11/30/2024 3:40 AM EDT) Procalcitonin 0.26 See Comment ng/mL 11/30/2024 5:07 AM EDT [facility] Comment: Sepsis comment <0.5 Antibiotics Discouraged [...] Final Resul t Performing Organization Address [facility] Co de Phone Number [facility] [address] [phone] * (ABNORMAL) Iron and TIBC (11/30/2024 3:40 AM EDT) Iron 63 50 - 170 ug/dL 11/30/2024 6:13 PM EDT [facility] TIBC 183(L) 250 - 435 ug/dL 11/30/2024 6:13 PM EDT [facility] % Saturation 34 % 11/30/2024 6:13 PM EDT [facility] UIBC 120 11/30/2024 6:13 PM EDT [facility] Blood Venipuncture / Unknown 11/30/2024 3:40 AM EDT 11/30/2024 4:09 AM EDT us Rommel Batista MD LAB BLOOD ORDERABLES Final Res ult [facility] [address] [phone] * aPTT (11/30/2024 3:40 AM EDT) aPTT 27.7 22.0 - 32.0 seconds 11/30/2024 4:32 AM EDT [facility] Blood Venipuncture / Unknown 11/30/2024 3:40 AM EDT 11/30/2024 4:10 AM EDT us Huey Hurtado MD LAB BLOOD ORDERABLES Final Resul t Performing Organization Address City/[facility] Co de Phone Number [facility] [address] [phone] * (ABNORMAL) Prothrombin time/INR (11/30/2024 3:40 AM EDT) Protime 12.9(H) 9.0 - 12.0 seconds 11/30/2024 4:32 AM EDT [facility] INR 1.17(H) 0.80 - 1.10 11/30/2024 4:32 AM EDT [facility] Comment: Recommended therapeutic ranges using International [...] ORDERABLES Final Resul t Performing Organization Address City/State/[facility] Co de Phone Number [facility] [address] [phone] * (ABNORMAL) Uric acid (11/30/2024 3:40 AM EDT) Uric Acid 11.2(H) 2.5 - 6.2 mg/dL 11/30/2024 12:18 PM EDT [facility] Blood Venipuncture / Unknown 11/30/2024 3:40 AM EDT 11/30/2024 4:09 AM EDT us Hill Boo MD LAB BLOOD ORDERABLES Final Resu lt Performing Organization Address [facility] Co de Phone Number [facility] [address] [phone] * (ABNORMAL) Lactate dehydrogenase (LDH) (11/30/2024 3:40 AM EDT) LDH 261(H) 125 - 220 U/L 11/30/2024 12:18 PM EDT [facility] Blood Venipuncture / Unknown 11/30/2024 3:40 AM EDT 11/30/2024 4:09 AM EDT us Hill Boo MD LAB BLOOD ORDERABLES Final Resu lt Performing Organization Address [facility]/ZIP Co de Phone Number [facility] [address] [phone] * Iron, serum (11/30/2024 3:40 AM EDT) Iron 64 50 - 170 ug/dL 11/30/2024 8:10 AM EDT [facility] Blood Venipuncture / Unknown 11/30/2024 3:40 AM EDT 11/30/2024 4:09 AM EDT us Timothy Bai MD LAB BLOOD ORDERABLES Final Result [facility] [address] [phone] * Folate, Serum (11/30/2024 3:40 AM EDT) Folate 7.0 7.0 - 31.4 ng/mL 11/30/2024 6:08 PM EDT [facility] Blood Venipuncture / Unknown 11/30/2024 3:40 AM EDT 11/30/2024 4:09 AM EDT us Rommel Batista MD LAB BLOOD ORDERABLES Final Res ult Performing Organization Address [facility]/ZIP Co de Phone Number [facility] [address] [phone] * Vitamin B12 (11/30/2024 3:40 AM EDT) Vitamin B12 678 213 - 816 pg/mL 11/30/2024 8:10 AM EDT [facility] Blood Venipuncture / Unknown 11/30/2024 3:40 AM EDT 11/30/2024 4:09 AM EDT us Timothy Bai MD LAB BLOOD ORDERABLES Final Result Performing Organization Address [facility] Co de Phone Number [facility] [address] [phone] * EKG-SCANNED (11/30/2024) Only the most recent of3 resultswithin the time period is included. Narrative 11/30/2024 Ordered by an unspecified provider. us Default Scanning Provider SCAN ORDERS Final Result from Last 3 Months Insurance [facility] Advance Directives For more information, please contact: [phone] * Full Code (Latest Code Status on File) Date Activated Date Inactivated Comments 11/30/2024 2:06 AM 12/14/2024 6:30 PM Care Teams Assistant Manager Retail Relationship Specialty Start Date End Date Provider, Not In System [place] PCP - General 12/14/24
--- OUTSIDE RECORDS SUMMARY | 2025-01-11 13:55 | XMS_ITS | Clinical Summary ---
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 Name Role Phone Provider, Not In System [...] Type Department Care Team Description 12/06/2024 Telephone [facility] - [facility] [address] [place] [address] Mimi Moreno RN Appointment 12/01/2024 9:19 AM EDT - 12/01/2024 9:50 AM EDT Surgery [facility] Endoscopy [address] [place] [id number] Scott Daley MD EGD, WITH FOREIGN BODY REMOVAL 12/01/2024 8:55 AM EDT Anesthesia Event [facility] Endoscopy [address] [place] [id number] Ashtyn Sanchez MD 11/30/2024 1:43 AM EDT - 12/14/2024 5:30 PM EDT Hospital Encounter [facility] 5B Medical Telemetry Unit 1 [place] [id number] Albert Garcia MD Shamsulddin, Haider, MD Zohary, [...] the past 12 months, has t he [employer] gas, oil, or [employer] threatened to shut off services in your [...] Do you speak a language other than Maltese at [facility]? No 11/30/2024 Do you want help [...] Description 01/27/2025 10:45 AM EDT Office Visit [facility] Electrophysiology [address] [place] [address] Deysi Jon MD [address] [place] [address] [address] [place] [address] Health Maintenance Due Date Last Done Comments [...] 05/13/2021, 04/15/2021, 11/08/2020 Medicare IPPE ([facility] to [facility]) [id number] 07/28/2024 Influenza Vaccine (Season Ended) 2025 [...] Routine 11/30/2024 4:17 PM EDT CYTOLOGY ([facility]) AP Routine 11/30/2024 4:03 PM EDT [facility]ena PROTEIN, BODY FLUID Routine 11/30/2024 4 :03 PM EDT GLUCOSE, BODY FLUID Routine 11/30/2024 4 :03 PM EDT BODY FLUID/CSF- PATH REVIEW LAB ONLY ([facility]) Routine 11/30/2024 4:03 PM EDT Melena [facility] DIFFERENTIAL, BODY FLUID Routine 11/30/2024 4:03 PM [...] of63 resultswithin the time period is included. [facility] POC-GLUCOSE 203(H) 70 - 110 mg/dL 12/14/2024 3:42 PM EDT [facility] Comment: In the event of poor peripheral blood flow, venous or arterial blood should be used due to the potential of erroneous results. Notified Nurse RBV Cook Morning [phone] 12/14/2024 3:42 PM EDT [facility] Blood WHOLE BLOOD / Unknown 12/14/2024 3:41 PM EDT 12/14/2024 3:42 PM EDT Narrative [facility] - 12/14/2024 3:42 PM EDT Cook Morning ID is - [id number] David Coffman PA-C POINT OF CARE TEST ORDERABLES Final Result Performing Organization Address City/State/[facility] Co de Phone Number [facility] [address] [phone] * ECG 12 lead (12/14/2024 9:10 AM EDT) Only the most recent of13 resultswithin the time period is included. [facility] VENTRICULAR RATE EKG/MIN 89 BPM GE MUSE ATRIAL RATE (MCT) [address] Interval 146 ms GE MUSE QRS-INTERVAL (MSEC) 86 ms GE MUSE QT Interval 432 ms GE MUSE QTC Interval 525 ms GE MUSE P [place] 34 degrees GE MUSE R AXIS (MCT) -13 degrees GE MUSE T Wave [place] -2 degrees GE MUSE [place] Diagnosis Normal sinus rhythm Septal infarct (cited on or before 14-DEC-2024 ) Confirmed by DEYSI JON M.D. ([id number]) on 12/14/2024 5:07:26 PM GE MUSE 12/14/2024 9:10 AM EDT 12/14/2024 5:07 PM EDT us Deysi Jon MD ECG ORDERABLES Final Result BJ JUAREZ * (ABNORMAL) CBC with automated diff (12/14/2024 2:54 AM EDT) Only the most recent of7 resultswithin the time period is included. WBC 1.4(LL) 4.0 - 10.0 K/ L 12/14/2024 3:45 AM EDT [facility] RBC 2.45(L) 3.93 - 5.22 M/ L 12/14/2024 3:45 AM EDT [facility] Hemoglobin 7.6(L) 11.2 - 15.7 GM/DL 12/14/2024 3:45 AM EDT [facility] Hematocrit 24.1(L) 34.1 - 44.9 % 12/14/2024 3:45 AM EDT [facility] MCV 98(H) 79 - 95 fL 12/14/2024 3:45 AM EDT [facility] MCH 31.0 25.6 - 32.2 pg 12/14/2024 3:45 AM EDT [facility] MCHC 31.5(L) 32.2 - 35.5 GM/DL 12/14/2024 3:45 AM EDT [facility] RDW 16.3(H) 11.7 - 14.4 % 12/14/2024 3:45 AM EDT [facility] Platelets 51(L) 140 - 375 K/CU MM 12/14/2024 3:45 AM EDT [facility] MPV 12.3 9.4 - 12.3 fL 12/14/2024 3:45 AM EDT [facility] % Neutros 54 34 - 71 % 12/14/2024 3:45 AM EDT [facility] % Lymphs 32 19 - 52 % 12/14/2024 3:45 AM EDT [facility] % Monos 14(H) 5 - 13 % 12/14/2024 3:45 AM EDT [facility] % Eos 0(L) 1 - 6 % 12/14/2024 3:45 AM EDT [facility] % Baso 1 0 - 1 % 12/14/2024 3:45 AM EDT [facility] NRBC Absolute <0.01 0 - 0.012 K/ul 12/14/2024 3:45 AM EDT [facility] # Neutros 0.76(L) 1.56 - 6.13 K/ L 12/14/2024 3:45 AM EDT [facility] # Lymphs 0.45(L) 1.18 - 3.74 K/ L 12/14/2024 3:45 AM EDT [facility] # Monos 0.19(L) 0.24 - 0.86 K/ L 12/14/2024 3:45 AM EDT [facility] # Eos <0.03(L) 0.04 - 0.36 K/ L 12/14/2024 3:45 AM EDT [facility] # Baso <0.03 0.01 - 0.08 K/ L 12/14/2024 3:45 AM EDT [facility] Immature Granulocytes-Re lative 0.00(L) 0.01 - 0.43 % 12/14/2024 3:45 AM EDT [facility] # IG <0.03 0.00 - 0.03 K/uL 12/14/2024 3:45 AM EDT [facility] Blood Venipuncture / Unknown 12/14/2024 2:54 AM EDT 12/14/2024 3:27 AM EDT Narrative [facility] - 12/14/2024 3:45 AM EDT [...] PA-C LAB BLOOD ORDERABLES Final Re sult [facility] [address] [place] [address], [facility] [phone] * (ABNORMAL) Comprehensive metabolic panel (12/14/2024 2:54 AM EDT) Only the most recent of9 resultswithin the time period is included. Sodium 145 136 - 145 meq/L 12/14/2024 4:13 AM EDT [facility] Potassium 3.5 3.4 - 5.1 meq/L 12/14/2024 4:13 AM EDT [facility] Chloride 109 98 - 112 meq/L 12/14/2024 4:13 AM EDT [facility] CO2 27 22 - 29 meq/L 12/14/2024 4:13 AM EDT [facility] Calcium 8.6 8.4 - 10.2 mg/dL 12/14/2024 4:13 AM EDT [facility] Glucose 146(H) 82 - 115 mg/dL 12/14/2024 4:13 AM EDT [facility] BUN 67.7(H) 9.8 - 20.1 mg/dL 12/14/2024 4:13 AM EDT [facility] Creatinine 2.22(H) 0.57 - 1.11 mg/dL 12/14/2024 4:13 AM EDT [facility] BUN/Creatinine 30(H) 8 - 20 12/14/2024 4:13 AM EDT [facility] eGFR (mL/min/1.73m2) 25(L) >=60 mL/min/1. 73m2 12/14/2024 4:13 AM EDT [facility] Albumin 3.2(L) 3.5 - 5.0 g/dL 12/14/2024 4:13 AM EDT [facility] Alkaline Phosphatase 56 40 - 150 U/L 12/14/2024 4:13 AM EDT [facility] ALT 21 <=34 U/L 12/14/2024 4:13 AM EDT [facility] Comment: ALT2 reagent used for testing does not contain P5P supplementation and therefore may miss ALT elevations in patients with B6 deficiency. This population may be as high as 10% in the [place], with risk factors including malabsorption, drug interactions, and alcoholic hepatitis. AST 52(H) 11 - 34 U/L 12/14/2024 4:13 AM EDT [facility] Comment: AST2 reagent used for testing does not contain P5P supplementation and therefore may miss AST elevations in patients with B6 deficiency. This population may be as high as 10% in the [place], with risk factors including malabsorption, drug interactions, and alcoholic hepatitis. Total Bilirubin 0.9 0.2 - 1.2 mg/dL 12/14/2024 4:13 AM EDT [facility] Protein, Total 5.9(L) 6.4 - 8.3 g/dL 12/14/2024 4:13 AM EDT [facility] Globulin 2.7 2.5 - 4.1 g/dL 12/14/2024 4:13 AM EDT [facility] Anion Gap 13(H) 4 - 12 12/14/2024 4:13 AM EDT [facility] A/G Ratio 1.2 0.7 - 1.9 12/14/2024 4:13 AM EDT [facility] Osmolality Calc 311.0 mOsm/kg 4:13 AM EDT [facility] Blood Venipuncture / Unknown 12/14/2024 2:54 AM EDT 12/14/2024 3:26 AM EDT David Coffman PA-C LAB BLOOD ORDERABLES Final Re sult [facility] [address] [phone] * (ABNORMAL) CBC Scan (12/13/2024 3:15 AM EDT) Only the most recent of2 resultswithin the time period is included. Platelet Estimate Decreased (A) Adequate 12/13/2024 4:55 AM EDT [facility] RBC Morphology abnormal( A) Normal 12/13/2024 4:55 AM EDT [facility] Anisocytosis 1+ 12/13/2024 4:55 AM EDT [facility] Hypochromia 1+ 12/13/2024 4:55 AM EDT [facility] Ovalocytes 1+ 12/13/2024 4:55 AM EDT [facility] Blood Venipuncture / Unknown 12/13/2024 3:15 AM EDT 12/13/2024 3:27 AM EDT us Venkatesh Stephen MD LAB BLOOD ORDERABLES Final Resul t [facility] [address] [phone] * (ABNORMAL) Hepatic function panel (12/13/2024 3:15 AM EDT) Protein, Total 5.7(L) 6.4 - 8.3 g/dL 12/13/2024 4:13 AM EDT [facility] Albumin 3.1(L) 3.5 - 5.0 g/dL 12/13/2024 4:13 AM EDT [facility] Total Bilirubin 0.8 0.2 - 1.2 mg/dL 12/13/2024 4:13 AM EDT [facility] Bilirubin, Direct 0.4 0.0 - 0.5 mg/dL 12/13/2024 4:13 AM EDT [facility] Alkaline Phosphatase 53 40 - 150 U/L 12/13/2024 4:13 AM EDT [facility] Globulin 2.6 2.5 - 4.1 g/dL 12/13/2024 4:13 AM EDT [facility] A/G Ratio 1.2 0.7 - 1.9 12/13/2024 4:13 AM EDT [facility] AST 42(H) 11 - 34 U/L 12/13/2024 4:13 AM EDT [facility] Comment: AST2 reagent used for testing does not contain P5P supplementation and therefore may miss AST elevations in patients with B6 deficiency. This population may be as high as 10% in the [place], with risk factors including malabsorption, drug interactions, and alcoholic hepatitis. ALT 16 <=34 U/L 12/13/2024 4:13 AM EDT [facility] Comment: ALT2 reagent used for [...] MD LAB BLOOD ORDERABLES Final Resu lt [facility] [address] [phone] * (ABNORMAL) Basic Metabolic Panel (12/13/2024 3:15 AM EDT) Only the most recent of6 resultswithin the time period is included. Sodium 147(H) 136 - 145 meq/L 12/13/2024 4:13 AM EDT [facility] Potassium 3.5 3.4 - 5.1 meq/L 12/13/2024 4:13 AM EDT [facility] CO2 27 22 - 29 meq/L 12/13/2024 4:13 AM EDT [facility] Chloride 110 98 - 112 meq/L 12/13/2024 4:13 AM EDT [facility] Glucose 135(H) 82 - 115 mg/dL 12/13/2024 4:13 AM EDT [facility] BUN 71.9(H) 9.8 - 20.1 mg/dL 12/13/2024 4:13 AM EDT [facility] Creatinine 2.29(H) 0.57 - 1.11 mg/dL 12/13/2024 4:13 AM EDT [facility] BUN/Creatinine 31(H) 8 - 20 12/13/2024 4:13 AM EDT [facility] Calcium 8.5 8.4 - 10.2 mg/dL 12/13/2024 4:13 AM EDT [facility] Anion Gap 14(H) 4 - 12 12/13/2024 4:13 AM EDT [facility] eGFR (mL/min/1.73m2) 24(L) >=60 mL/min/1.7 3m2 12/13/2024 4:13 AM EDT [facility] Osmolality Calc 315.6 mOsm/kg 4:13 AM EDT [facility] Blood Venipuncture / Unknown 12/13/2024 3:15 AM EDT 12/13/2024 3:39 AM EDT us Venkatesh Stephen MD LAB BLOOD ORDERABLES Final Resul t [facility] [address] [phone] * US paracentesis (12/10/2024 11:37 AM EDT) [...] ULTRASOUND-GUIDED PARACENTESIS HISTORY: Ascites. ATTENDING PHYSICIAN: Dr. Hsaeeb Gil PHYSICIAN DATA SOLUTIONS ARCHITECT: Sujit Blackman PA-C FINDINGS: After informed consent [...] Ascites. ATTENDING PHYSICIAN: Dr. Haseeb Gil PHYSICIAN DATA SOLUTIONS ARCHITECT: Sujit Blackman PA-C FINDINGS: After informed consent [...] 12 <=34 U/L 12/10/2024 11:02 AM EDT [facility] Comment: ALT2 reagent used for [...] MD LAB BLOOD ORDERABLES Final Resul t [facility] [address] [phone] * (ABNORMAL) AST (SGOT) (12/10/2024 9:53 AM EDT) AST 39(H) 11 - 34 U/L 12/10/2024 11:02 AM EDT [facility] Comment: AST2 reagent used for testing does not contain P5P supplementation and therefore may miss AST elevations in patients with B6 deficiency. This population may be as high as 10% in the [place], with risk factors including malabsorption, drug interactions, and alcoholic hepatitis. [employer] has become aware of sulfasalazine and sulfapyridine [...] MD LAB BLOOD ORDERABLES Final Resul t [facility] [address] [phone] * Magnesium (12/10/2024 9:53 AM EDT) Only the most recent of9 resultswithin the time period is included. Pathologist [facility] Magnesium 2.3 1.6 - 2.6 mg/dL 12/10/2024 11:02 AM EDT [facility] Blood Venipuncture / Unknown 12/10/2024 9:53 AM EDT 12/10/2024 10:39 AM EDT Deysi Jon MD LAB BLOOD ORDERABLES Final Resul t [facility] [address] [phone] * XR chest AP portable (12/10/2024 9:10 [...] 7.35 - 7.45 12/10/2024 6:51 AM EDT [facility] pCO2, Arterial 49(H) 35 - 45 mm Hg 12/10/2024 6:51 AM EDT [facility] pO2, Arterial 119(H) 80 - 100 mm Hg 12/10/2024 6:51 AM EDT [facility] HCO3, Arterial 24 20 - 26 mmol/L 12/10/2024 6:51 AM EDT [facility] Base Excess, Arterial -2.4(L) -2.0 - 2.0 mmol/L 12/10/2024 6:51 AM EDT [facility] O2 Sat, Arterial >99.2 95.0 - 100.0 % 12/10/2024 6:51 AM EDT [facility] Comment:notified at read-anny k verification CTO2 ARTERIAL 11.9 mmol/L 12/10/2024 6:51 AM EDT [facility] THB ARTERIAL 8.5(L) 12.0 - 18.0 g/dL 12/10/2024 6:51 AM EDT [facility] COLLECTION SITE Left Radial 12/10/2024 6:51 AM EDT [facility] Arterial Puncture Yes 12/10/2024 6:51 AM EDT [facility] Blood Gas O2 Delivery Device Cannula 12/10/2024 6:51 AM EDT [facility] Oxygen Flow Rate 4 12/11/19 25 6:51 AM EDT [facility] Blood Gas PT Temperature C 37.0 12/10/2024 6:51 AM EDT [facility] Sen's Test Acceptable 12/10/2024 6:51 AM EDT [facility] ABG Number of Draw Attempts 1 12/10/2024 6:51 AM EDT [facility] FIO2 12/10/2024 6:51 AM EDT [facility] Blood Gas Temperature Corrected Results No No 12/10/2024 6:51 AM EDT [facility] Blood, Arterial Collection / Unknown 12/10/2024 6:42 AM EDT 12/10/2024 6:51 AM EDT us Blanka Alvarez MD LAB BLOOD ORDERABLES Final Re sult [facility] [address] [place] [address] [phone] * (ABNORMAL) CBC - Hemogram ([facility]) (12/09/2024 3:38 AM EDT) Only the most recent of8 resultswithin the time period is included. WBC 2.4(L) 4.0 - 10.0 K/ L 12/09/2024 3:59 AM EDT [facility] RBC 2.83(L) 3.93 - 5.22 M/ L 12/09/2024 3:59 AM EDT [facility] Hemoglobin 8.5(L) 11.2 - 15.7 GM/DL 12/09/2024 3:59 AM EDT [facility] Hematocrit 28.0(L) 34.1 - 44.9 % 12/09/2024 3:59 AM EDT [facility] MCV 99(H) 79 - 95 fL 12/09/2024 3:59 AM EDT [facility] MCH 30.0 25.6 - 32.2 pg 12/09/2024 3:59 AM EDT [facility] MCHC 30.4(L) 32.2 - 35.5 GM/DL 12/09/2024 3:59 AM EDT [facility] RDW 17.2(H) 11.7 - 14.4 % 12/09/2024 3:59 AM EDT [facility] Platelets 55(L) 140 - 375 K/CU MM 12/09/2024 3:59 AM EDT [facility] MPV 11.5 9.4 - 12.3 fL 12/09/2024 3:59 AM EDT [facility] Blood Venipuncture / Unknown 12/09/2024 3:38 AM EDT 12/09/2024 3:45 AM EDT us Mary Carmen Mcfadden MD LAB BLOOD ORDERABLES Final Resu lt [facility] [address] [place] [address], [facility] [phone] * Erythropoietin(SENDOUT) (12/07/2024 3:59 AM EDT) Erythropoietin 19 4 - 27 mU/mL 12/08/2024 2:30 PM EDT [facility] Comment: INTERPRETIVE INFORMATION: Erythropoietin Normal serum [...] may benefit from therapy with recombinant EPO ([facility] [id number],1989). Performed By: [facility] [address] [place] [address] Supervisor Shuttle Preparation: Lalo Mortensen MD, PhD CLIA Number: [id number] Blood Venipuncture / Unknown 12/07/2024 3:59 AM EDT 12/07/2024 4:11 AM EDT us Ariel Mills MD LAB BLOOD ORDERABLES Final Res ult [facility] [address] [place] [address], [facility] [phone] * Ammonia (12/07/2024 3:59 AM EDT) Only the most recent of8 resultswithin the time period is included. Ammonia 44 18 - 72 mol/L 12/07/2024 4:37 AM EDT [facility] Blood Venipuncture / Unknown 12/07/2024 3:59 AM EDT 12/07/2024 4:22 AM EDT Timothy Bai MD LAB BLOOD ORDERABLES Final Result Performing Organization Address City/[facility]/ZIP Co de Phone Number [facility] [address] [phone] * (ABNORMAL) Ferritin (12/06/2024 3:13 AM EDT) Only the most recent of2 resultswithin the time period is included. Ferritin 256.82(H) 4.63 - 204.00 ng/mL 12/06/2024 8:25 AM EDT [facility] Blood Venipuncture / Unknown 12/06/2024 3:13 AM EDT 12/06/2024 3:50 AM EDT Ariel Mills MD LAB BLOOD ORDERABLES Final Res ult Performing Organization Address [facility]/ZIP Co de Phone Number [facility] [address] [phone] * (ABNORMAL) Hemoglobin (12/05/2024 3:36 PM EDT) Only the most recent of11 resultswithin the time period is included. Hemoglobin 8.1(L) 11.2 - 15.7 GM/DL 12/05/2024 3:57 PM EDT [facility] Blood Venipuncture / Unknown 12/05/2024 3:36 PM EDT 12/05/2024 3:47 PM EDT Timothy Bai MD LAB BLOOD ORDERABLES Final Result Performing Organization Address City/[facility]/ZIP Co de Phone Number [facility] [address] [phone] * ANCA Vasculitis Profile(SENDOUT) (12/04/2024 8:15 AM EDT) Myeloperoxidase (MPO) Ab, IgG 0 0 - 19 AU/mL 12/07/2024 8:52 AM EDT [facility] Comment: INTERPRETIVE INFORMATION: Myeloperoxidase Abs, IgG 19 AU/mL or Less ......... Negative 20-25 AU/mL .............. Equivocal 26 AU/mL or Greater ...... Positive Approximately 90% of patients with a P-ANCA pattern by IFA have antibodies specific for MPO. Serine Proteinase 3 (PR3) Ab, IgG 0 0 - 19 AU/mL 12/07/2024 8:52 AM EDT [facility] Comment: INTERPRETIVE INFORMATION: Serine Proteinase 3, IgG 19 AU/mL or Less ........ Negative 20-25 AU/mL ............. Equivocal 26 AU/mL or Greater ..... Positive Approximately 85% of patients with a C-ANCA pattern by IFA have antibodies specific for PR3. ANCA IFA Titer <1:20 <1:20 12/07/2024 8:52 AM EDT [facility] ANCA IFA Pattern None Detected None Detected 12/07/2024 8:52 AM EDT [facility] [employer] Comment: INTERPRETIVE INFORMATION: ANCA IFA Pattern Neutrophil Cytoplasmic Antibodies (C-ANCA = granular cytoplasmic staining, P-ANCA = perinuclear staining) are found in the serum of over 90 percent of patients with certain necrotizing systemic vasculitides, and usually in less than 5 percent of patients with collagen vascular disease or arthritis. Performed By: [facility] [address] [place] [address] Supervisor Shuttle Preparation: Lalo Mortensen MD, PhD CLIA Number: [id number] Blood Venipuncture / Unknown 12/04/2024 8:15 AM EDT 12/04/2024 8:32 AM EDT us Hema Cervantes MD LAB BLOOD ORDERABLES Final Re sult [facility] [address] [place] [address], [facility] [phone] * JEANA Reflexive Profile(SENDOUT) (12/04/2024 8:15 AM EDT) Anti-Nuclear Ab (JEANA), IgG by SHARON None Detected None Detected 12/06/2024 3:51 PM EDT [facility] Comment: No Anti-Nuclear Antibodies (JEANA) detected by SHARON. The Extractable Nuclear Antigen Antibodies (SCALPER OPERATOR, Llanes, SSA 52, SSA 60, Scleroderma, Lilia-1 and SSB) and Double Stranded DNA (dsDNA) Antibody, IgG will not be performed. If suspicion of connective tissue disease is strong, and JEANA is negative by SHARON, consider testing for JEANA by IFA ([id number]). INTERPRETIVE INFORMATION: Anti-Nuclear Antibodies (JEANA), IgG by SHARON Antinuclear Antibodies (JEANA), IgG by SHARON: JEANA specimens are screened using enzyme-linked immunosorbent assay (SHARON) methodology. All SHARON results reported as Detected are further tested by indirect fluorescent assay (IFA) using HEp-2 substrate with an IgG-specific conjugate. The JEANA SHARON screen is designed to detect antibodies against dsDNA, histones, SS-A (Ro), SS-B (La), Llanes, Llanes/SCALPER OPERATOR, Scl-70, Lilia-1, centromeric proteins, other antigens extracted from the HEp-2 cell nucleus. JEANA SHARON assays have been reported to have lower sensitivities than JEANA IFA for systemic autoimmune rheumatic diseases (SARD). Negative results do not necessarily rule out SARD. Performed By: [facility] [address] [place] [address] Supervisor Shuttle Preparation: Lalo Mortensen MD, PhD CLIA Number: [id number] Blood Venipuncture / Unknown 12/04/2024 8:15 AM EDT 12/04/2024 8:32 AM EDT us Hema Cervantes MD LAB BLOOD ORDERABLES Final Re sult [facility] [address] [place], [place] [id number], [facility] [phone] * Phosphorus (12/04/2024 3:34 AM EDT) Phosphorus 4.2 2.5 - 4.5 mg/dL 12/04/2024 4:04 AM EDT [facility] Blood Venipuncture / Unknown 12/04/2024 3:34 AM EDT 12/04/2024 3:41 AM EDT us Kirstymalinda Tuttle APRN LAB BLOOD ORDERABLES Final R esult Performing Organization Address City/[facility]/ZIP Co de Phone Number [facility] [address] [phone] * Creatine Kinase (CK) (12/03/2024 7:39 AM EDT) Only the most recent of2 resultswithin the time period is included. Total CK 55 29 - 168 U/L 12/03/2024 6:19 PM EDT [facility] Blood Venipuncture / Unknown 12/03/2024 7:39 AM EDT 12/03/2024 5:52 PM EDT Hema Cervantes MD LAB BLOOD ORDERABLES Final Re sult Performing Organization Address City/[facility]/ZIP Co de Phone Number [facility] [address] [phone] * Transfuse RBC (12/02/2024 5:03 PM EDT) [...] Pancytopenia. ATTENDING RADIOLOGIST: Dr. Haseeb Gil. PHYSICIAN DATA SOLUTIONS ARCHITECT: Sandra Ramsey PA-C PROCEDURE: After informed consent [...] Pancytopenia. ATTENDING RADIOLOGIST: Dr. Haseeb Gil. PHYSICIAN DATA SOLUTIONS ARCHITECT: Sandra Ramsey PA-C PROCEDURE: After informed consent [...] by Sandra Ramsey PA-C. Rommel Batista MD [facility] ORDERABLES Final Result * [facility] BONE MARROW SMEAR, ASPIRATION, AND STAIN (12/02/2024 12:06 PM EDT) Pathologist [facility] AP RESULT See Note: [facility] Comment: [facility] [address] [place] [address] or [phone] Joe Carlos M.D., Phys Ther PATIENT NAME LABORATORY NO. 170MARY PETERSEN. [id number] [facility] MAIN AGE SEX SSN CLIENT REF # [id number] F [id number] [address] [place] [address] REQUESTING Mirtha. ATTENDING Aleksandr. COPY TO.ROMMEL BEAR DATE COLLECTED DATE RECEIVED DATE REPORTED 12/02/2024 12/02/2024 12/06/2024 ADDENDUM PRESENT ADDENDUM: Cytogenetics shows a normal female karyotype, 46,XX[20]. The original diagnosis remains unchanged. Verified by Heydi Mak M.D., MPH on 12/13/2024 Professional interpretation rendered by Heydi Mak M.D., MPH at [facility], [address] [place] [address]. DIAGNOSIS: PERIPHERAL SMEAR , BONE MARROW ASPIRATION [...] CD38, CD45, CD56, CD57, CD117, CD123, HLA-DR, [place], and Lambda. These tests use analyte specific [...] rendered by Heydi Mak M.D., MPH at [facility], [facility], [address] [place] [address]. GROSS DESCRIPTION: A. Received 1 peripheral blood smear slide for review. B. Received 5 bone marrow aspirate smear slides for review. 4 additional bone marrow aspirate smear slides made at [facility]. C. Received in a purple top [...] BY: Heydi Mak M.D., MPH CPT CODES: [id number], [id number], 91455, [id number], [id number], 99411, 49387, [id number] Bone Marrow BONE MARROW STRUCTURE / Unknown 12/02/2024 12:06 PM EDT us Rommel Batista MD PATHOLOGY/CYTOLOGY ORDERABLES Edited Result - Final [facility] [address] [place] [address] * Prepare RBC: 1 Units (12/02/2024 9:36 AM EDT) Only the most recent of2 resultswithin the time period is included. Issue Date/Time [id number] [facility] B[facility] ([place] Product Identification Red Blood Cells [facility] [place]) Product Code [id number] [facility]) Status Information Transfused [facility]) Unit Number [id number] [facility] B[facility]OD [facility] [place]) Blood Type 5100 [facility] [place] Cross Match Results Compatible [facility] [place] us Timothy Bai MD FS_MODEL_IP_BLOOD BANK PRO DUCT ORDERABLES Final Result [facility] ([place]) [address] [phone] * (ABNORMAL) Hemoglobin and hematocrit (12/02/2024 7:40 AM EDT) Hemoglobin 7.4(L) 11.2 - 15.7 GM/DL 12/02/2024 9:43 AM EDT [facility] Hematocrit 23.4(L) 34.1 - 44.9 % 12/02/2024 9:43 AM EDT [facility] Blood Venipuncture / Unknown 12/02/2024 7:40 AM EDT 12/02/2024 7:47 AM EDT us Timothy Bai MD LAB BLOOD ORDERABLES Final Result [facility] [address] [place] [address], [facility] [phone] * AN SINGLE LUMEN INTUBATION (12/01/2024 9:01 [...] ABO/Rh O Positive 12/01/2024 4:53 AM EDT [facility] [place] Antibody Screen Negative 12/01/2024 4:53 AM EDT [facility] [place] HISTCHK HIST CHECK PERFORMED 12/01/2024 4:53 AM EDT [facility] ([place]) Blood Venipuncture / Unknown 12/01/2024 7:08 AM EDT 12/01/2024 7:15 AM EDT Denilson Arnauddeann VU [facility] BLOOD BANK TEST ORDERABLES Final Result Performing Organization Address [facility]/ZIP Co de Phone Number [facility] ([place] [address] [place] [address], [facility] [phone] * ABO/RH Confirmation/Retype (12/01/2024 4:06 AM EDT) RETYPE O Positive 12/01/2024 5:15 AM EDT [facility] ([place]) Comment:[id number] Blood Venipuncture / Unknown 12/01/2024 4:06 AM EDT 12/01/2024 5:14 AM EDT Timothy Bai MD [facility] BLOOD [facility] TEST ORDERA BLES Final Result Performing Organization Address [facility] Co de Phone Number [facility] ([place] [address] [place] [address], [facility] [phone] * Ultrasound renal limited (11/30/2024 4:19 PM [...] - 25 % 025 8:49 PM EDT [facility] Lymphocytes Fluid 46 % 025 8:49 PM EDT [facility] Unidentified Mononuclear Cells BF 49 0 - 0 % 11/30/2024 8:49 PM EDT [facility] Peritoneal Fluid BODY FLUID / Unknown 11/30/2024 4:03 PM EDT 11/30/2024 4:33 PM EDT Huey Hurtado MD BODY FLUIDS AND STOOLS ORDERABLE S Final Result [facility] [address] [place] [id number] [phone] * [facility] Non-Punch Press Operator Cytology (11/30/2024 4:03 PM EDT) AP RESULT See Note: [facility] Comment: [facility] [address] [place] [address] or [phone] Joe Carlos M.D., Phys Ther PATIENT NAME LABORATORY NO. MARY OLIVA. [id number] AGE SEX SSN CLIENT REF # [facility] 64 1960 F [id number] 1 [facility] REQUESTING Aleksandr ATTENDING Ale[place]and[place] [address] HUEY HURTADO DATE COLLECTED DATE RECEIVED DATE REPORTED 11/30/2024 12/01/2024 12/02/2024 DIAGNOSIS: PERITONEAL FLUID: Negative for malignant cells. MICROSCOPIC DESCRIPTION: Scattered mesothelial cells and chronic inflammatory cells are present. Professional interpretation rendered by John Sanchez M.D., F.C.A.P. at [employer], [facility], [address] [place] [address]. CLINICAL HISTORY: Melena Anasarca Acute renal failure SPECIMENS SUBMITTED: PERITONEAL FLUID GROSS SPECIMEN DESCRIPTION: 40 ccs of hazy, light yellow fluid, scant sediment, received in fixative ThinPrep slides prepared. Cell block has been examined. BRACELET AND BROOCH MAKER: SVITLANA HERNANDEZ (ASCP) REVIEWED, DIAGNOSED AND ELECTRONICALLY SIGNED BY: John Sanchez M.D., F.C.A.P. CPT CODES: [id number], [id number] Peritoneal Fluid BODY FLUID / Unknown 11/30/2024 4:03 PM EDT uHey Hurtado MD PATHOLOGY/CYTOLOGY ORDERABLES Fi nal Result [facility] [address] [place] [address] * Body Fluid/CSF - Path Review () (11/30/2024 4:03 PM EDT) SENT TO PATHOLOGY FOR REVIEW Yes 12/03/2024 6:54 AM EDT [facility] Scan Result Mesothelial cells. MD German 12/02/2024 12/03/2024 6:54 AM EDT [facility] Peritoneal Fluid BODY FLUID / Unknown 11/30/2024 4:03 PM EDT 11/30/2024 4:33 PM EDT us Huey Hurtado MD BODY FLUIDS AND STOOLS ORDERABLE S Final Result Performing Organization Address [facility] de Phone Number [facility] [address] [phone] * Glucose, body fluid (11/30/2024 4:03 PM EDT) Glucose, Body Fluid 107 See Comment mg/dL 12/01/2024 7:10 AM EDT [facility] BODY FLUID TYPE Peritoneal 12/01/2024 7:10 AM EDT [facility] Body Fluid PERITONEAL FLUID / Unknown 11/30/2024 4:03 PM EDT 12/01/2024 6:52 AM EDT Narrative [facility] - 12/01/2024 7:10 AM EDT This test has been modified from the distiller's instructions and its performance characteristics were determined [...] ORD ERABLES Final Result Performing Organization Address [facility] Co de Phone Number [facility] [address] [phone] * Anaerobic Culture (11/30/2024 4:03 PM EDT) Result No Anaerobic growth 12/05/2024 6:34 AM EDT [facility] Peritoneal Fluid BODY FLUID / Unknown 11/30/2024 4:03 PM EDT 11/30/2024 4:34 PM EDT Narrative [facility] - 12/05/2024 6:34 AM EDT Specimen Description: peritoneal fluid us Huey Hurtado MD MICROBIOLOGY - GENERAL ORDERABLE S Final Result Performing Organization Address [facility]/ZIP Co de Phone Number [facility] [address] [phone] * Body Fluid Culture + Gram Stain (11/30/2024 4:03 PM EDT) Result No growth 12/03/2024 9:07 AM EDT [facility] Gram Stain Result No organisms seen 12/03/2024 9:07 AM EDT [facility] Gram Stain Result No cells seen 12/03/2024 9:07 AM EDT [facility] Peritoneal Fluid BODY FLUID / Unknown 11/30/2024 4:03 PM EDT 11/30/2024 4:34 PM EDT Narrative [facility] - 12/03/2024 9:07 AM EDT Specimen Description: peritoneal fluid us Huey Hurtado MD MICROBIOLOGY - GENERAL ORDERABLE S Final Result Performing Organization Address [facility]/ZIP Co de Phone Number [facility] [address] [phone] * (ABNORMAL) Body fluid cell count with differential (11/30/2024 4:03 PM EDT) Appearance Cloudy(A) Clear 11/30/2024 8:49 PM EDT [facility] Color Yellow 11/30/2024 8:49 PM EDT [facility] BODY FLUID TYPE Peritoneal 11/30/2024 8:49 PM EDT [facility] Auto WBC/Nucleated Cells BF 85 /uL 11/30/2024 8:49 PM EDT [facility] Comment: Please refer to specific WBC/Nucleated Cell Count Body Fluid reference ranges below: For Pleural: 0-1000 Peritoneal: 0-1000 Pericardial:0-1000 Synovial: 0-200 Auto RBC BF <3,000 /uL 11/30/2024 8:49 PM EDT [facility] Comment: Please refer to specific RBC Cell Count Body Fluid reference ranges below: Pleural: 0-10,000 Peritoneal: 0-10,000 Pericardial:0-10,000 Synovial:0-30 Peritoneal Fluid BODY FLUID / Unknown 11/30/2024 4:03 PM EDT 11/30/2024 4:33 PM EDT [facility] - 11/30/2024 8:49 PM EDT There is normally no readily obtainable pleural, peritoneal and pericardial fluid, hence normal elements for these potential fluids are not defined. Huey Hurtado MD BODY FLUIDS AND STOOLS ORDERABLE S Final Result Performing Organization Address [facility]/ZIP Co de Phone Number [facility] [address] [phone] * Protein, body fluid (11/30/2024 4:03 PM EDT) Protein, Fluid 1.9 See Comment g/dL 12/01/2024 7:10 AM EDT [facility] BODY FLUID TYPE Peritoneal 12/01/2024 7:10 AM EDT [facility] Body Fluid PERITONEAL FLUID / Unknown 11/30/2024 4:03 PM EDT 12/01/2024 6:52 AM EDT [facility]ORY - 12/01/2024 7:10 AM EDT This test has been modified from the distiller's instructions and its performance characteristics were determined by the laboratory. The reference intervals and other method performance specifications are unavailable for this test. It is recommended to interpret body fluid concentrations in comparison with the corresponding serum or plasma concentrations and to integrate test results into the clinical context. Timothy Bai MD BODY FLUIDS AND STOOLS ORD ERABLES Final Result Performing Organization Address [facility]/ZIP Co de Phone Number [facility] 1 [place] [address], [facility] [phone] * Lactate dehydrogenase (LDH), body fluid (11/30/2024 4:03 PM EDT) LDH, Fluid 71 See Comment U/L 11/30/2024 6:19 PM EDT [facility] BODY FLUID TYPE Peritoneal 11/30/2024 6:19 PM EDT [facility] Peritoneal Fluid BODY FLUID / Unknown 11/30/2024 4:03 PM EDT 11/30/2024 4:33 PM EDT Narrative [facility] - 11/30/2024 6:19 PM EDT This test has been modified from the distiller's instructions and its performance characteristics were determined by the laboratory. The reference intervals and other method performance specifications are unavailable for this test. It is recommended to interpret body fluid concentrations in comparison with the corresponding serum or plasma concentrations and to integrate test results into the clinical context. us Huey Hurtado MD BODY FLUIDS AND STOOLS ORDERABLE S Final Result [facility] [address] [phone] * (ABNORMAL) Urinalysis, Reflex Microscopic and Culture If Indicated (11/30/2024 11:35 AM EDT) Color, UA Light Yellow 11/30/2024 12:06 PM EDT [facility] Clarity, UA Turbid(A) Clear 11/30/2024 12:06 PM EDT [facility] Specific [place], UA 1.011 1.005 - 1.030 11/30/2024 12:06 PM EDT [facility] pH, UA 5.0(L) 6.0 - 8.0 11/30/2024 12:06 PM EDT [facility] Leukocytes, UA 500 Félix/uL(A) Negative 11/30/2024 12:06 PM EDT [facility] Nitrite, UA Negative Negative 11/30/2024 12:06 PM EDT [facility] Protein, UA Negative Negative 11/30/2024 12:06 PM EDT [facility] Glucose, UA Normal Normal 11/30/2024 12:06 PM EDT [facility] Ketones, UA Negative Negative 11/30/2024 12:06 PM EDT [facility] Bilirubin, UA Negative Negative 11/30/2024 12:06 PM EDT [facility] Blood, UA Negative Negative 11/30/2024 12:06 PM EDT [facility] Urobilinogen, UA Normal Normal 11/30/2024 12:06 PM EDT [facility] Specimen Source Urine, Clean Catch 11/30/2024 12:06 PM EDT [facility] Urine URINE SPECIMEN COLLECTION, CLEAN CATCH / Unknown 11/30/2024 11:35 AM EDT 11/30/2024 11:41 AM EDT Destiney Llanes COLOR DRUM WORKER URINE ORDERABLES Final Resu lt [facility] [address] [phone] * (ABNORMAL) Urinalysis Microscopic Only (11/30/2024 11:35 AM EDT) WBC, UA 21-50(A) None Seen /HPF 11/30/2024 12:06 PM EDT [facility] RBC, UA 0-2(A) None Seen /HPF 11/30/2024 12:06 PM EDT [facility] Bacteria, UA 1+(A) None Seen, Trace 11/30/2024 12:06 PM EDT [facility] Mucus 1+(A) None Seen 11/30/2024 12:06 PM EDT [facility] SQUAMOUS EPITHELIAL 3-5(A) None Seen /HPF 11/30/2024 12:06 PM EDT [facility] HYALINE CASTS 21-50(A) None Seen /LPF 11/30/2024 12:06 PM EDT [facility] Urine URINE SPECIMEN COLLECTION, CLEAN CATCH / Unknown 11/30/2024 11:35 AM EDT 11/30/2024 11:41 AM EDT us Destiney Llanes COLOR DRUM WORKER URINE ORDERABLES Final Resu lt [facility] [address] [phone] * Urea Nitrogen, random urine (11/30/2024 11:35 AM EDT) Urea Nitrogen, Ur 305 mg/dL 11/30/2024 12:36 PM EDT [facility] Comment:Reference Range not established Urine 11/30/2024 11:3 5 AM EDT 11/30/2024 12:15 PM EDT us Hill Boo MD URINE ORDERABLES Final Result Performing Organization Address [facility] Co [place] Phone Number [facility] [address] [phone] * Protein / creatinine ratio, urine (11/30/2024 11:35 AM EDT) Creatinine, Ur 62.00 47.00 - 110.00 mg/dL 11/30/2024 12:36 PM EDT [facility] Protein Creatinine Ratio 0.19 <=0.20 11/30/2024 12:36 PM EDT [facility] Protein, Urine 12 1 - 14 mg/dL 11/30/2024 12:36 PM EDT [facility] Urine 11/30/2024 11:3 5 AM EDT 11/30/2024 12:15 PM EDT us Hill Boo MD URINE ORDERABLES Final Result Performing Organization Address [facility] Phone Number [facility] [address] [phone] * Sodium, random urine (11/30/2024 11:35 AM EDT) Sodium Urine 83 See Comment meq/L 11/30/2024 12:36 PM EDT [facility] Comment:Reference Range not established Urine 11/30/2024 11:3 5 AM EDT 11/30/2024 12:15 PM EDT us Hill Boo MD URINE ORDERABLES Final Result Performing Organization Address [facility] Co de Phone Number [facility] 1 [place] [address], [facility] [phone] * Urine Culture (11/30/2024 11:35 AM EDT) Result Recollect Specimen - 3 or more organisms suggests contamination 12/01/2024 6:49 AM EDT [facility] Urine URINE SPECIMEN COLLECTION, CLEAN CATCH / Unknown 11/30/2024 11:35 AM EDT 11/30/2024 11:41 AM EDT Destiney Llanes COLOR DRUM WORKER MICROBIOLOGY - GENERAL ORDE YAKELIN Final Result [facility] [address] [place] [address], [facility] [phone] * (ABNORMAL) Monoclonal Protein Study, Expanded Panel(SENDOUT) [...] - 263 mg/dL 12/03/2024 12:57 PM EDT [facility] Monoclonal Protein Not Applicable <=0.00 g/dL 12/03/2024 12:57 PM EDT [facility] [place] Qnt Free Light Chains 173.10(H) 3.30 - 19.40 mg/L 12/03/2024 12:57 PM EDT [facility] Comment: INTERPRETIVE INFORMATION: [place] Qnt Free Light Chains Undetected antigen excess is a rare event but cannot be excluded. Free light chain results should always be interpreted in conjunction with other clinical and laboratory findings. [place] Qnt Free Light Chains 123.84(H) 5.71 - 26.30 mg/L 12/03/2024 12:57 PM EDT [facility] Comment: INTERPRETIVE INFORMATION: [place] Qnt Free Light Chains Undetected antigen excess is a rare event but cannot be excluded. Free light chain results should always be interpreted in conjunction with other clinical and laboratory findings. [place]/Lambda Free Light Chain Ratio 1.40 0.26 - 1.65 12/03/2024 12:57 PM EDT [facility] SPEP/MAEGAN Interpretation See Note 12/03/2024 12:57 PM EDT [facility] Comment: Restricted band in the beta region [...] FLC, Serum See Note 12/03/2024 12:57 PM T [facility] [employer] Comment: Authorized individuals can access the [facility] Enhanced Report with an [employer] Connect account using the following link. Your local lab can assist you in obtaining the patient report if you don't have a Connect account. [email or web address] Performed By: [facility] [address] [place] [address] Supervisor Shuttle Preparation: Lalo Mortensen MD, PhD CLIA Number: [id number] Blood Venipuncture / Unknown 11/30/2024 11:01 AM EDT 11/30/2024 12:17 PM EDT Hill Boo MD LAB BLOOD ORDERABLES Final Resu lt Performing Organization Address [facility] Co de Phone Number [address] [phone] * Alpha Fetoprotein Tumor Marker(SENDOUT) (11/30/2024 11:01 AM EDT) [facility] Alpha Fetoprotein Tumor Marker 2 0 - 9 ng/mL 12/01/2024 3:41 PM EDT [facility] Comment: INTERPRETIVE INFORMATION: Alpha Fetoprotein Tumor Marker [...] reference intervals for this test in the [facility] Test Directory ([employer]). Performed By: [facility] [address] [place] [address] Supervisor Shuttle Preparation: Lalo Mortensen MD, PhD CLIA Number: [id number] Blood Venipuncture / Unknown 11/30/2024 11:01 AM EDT 11/30/2024 11:06 AM EDT Destiney Llanes APRN LAB BLOOD ORDERABLES Final Result Performing Organization Address [facility] Co de Phone Number [address] [phone] * (ABNORMAL) Vitamin D, 25-Hydroxy (11/30/2024 8:20 AM EDT) Vitamin D 25-Hydroxy 22.0(L) 30 - 80 ng/mL 11/30/2024 9:48 AM EDT [facility] Blood Venipuncture / Unknown 11/30/2024 8:20 AM EDT 11/30/2024 9:08 AM EDT us Timothy Bai MD LAB BLOOD ORDERABLES Final Result Performing Organization Address [facility] de Phone Number [facility] [address] [phone] * Hemoglobin A1c (11/30/2024 8:20 AM EDT) Pathologist [facility] Hemoglobin A1C 4.9 4.0 - 5.6 % 11/30/2024 9:17 AM EDT [facility] Comment: Hemoglobin A1C levels are related to mean glucose during the preceding 2-3 months. Less than 7% demonstrates glycemic control in diabetic patients. Hemoglobin AlC % Suggested Diagnosis > or = 6.5 Diabetic 5.7 - 6.4 Prediabetic <5.7 Non-diabetic eAVG Glucose 93.93 70 - 126 mg/dL 11/30/2024 9:17 AM EDT [facility] Blood Venipuncture / Unknown 11/30/2024 8:20 AM EDT 11/30/2024 9:07 AM EDT us Huey Hurtado MD LAB BLOOD ORDERABLES Final Resul t Performing Organization Address [facility] Co de Phone Number [facility] [address] [phone] * ECHO COMPLETE (DOPPLER / COLOR) WO CONTRAST (11/30/2024 7:50 AM EDT) Anatomical Region Laterality Modality Heart Vascular Ultraso und 11/30/2024 7:25 AM EDT Narrative 11/30/2024 10:46 AM EDT TRANSTHORACIC ECHOCARDIOGRAPHY REPORT Demographics Patient Name: RIN JONES : 1960 Age: 64 year(s) Corporate ID Number: [id number] Gender Female Half Backer: Giovanna Rock Height: 67 inches [facility] Referring Physician: HUEY HURTADO Weight: 225 pounds Interpreting JESSICA RAYMOND MD BMI: 35.24 kg/m^2 Physician: Date of Service: 11/30/2024 Blood Pressure: 118/59 mmHg Room Number: 579 Type of Study: TTE procedure: ECHO COMPLETE (DOPPLER / COLOR) W OR WO CONTRAST. Patient Status: Routine [facility] History/Tech Notes: [...] 1.35 m/s E/A ratio: 0.97 m/s Volume [id number] LV length: 8.51 cm ml Volume jlzaqfgt25.96 ml LVOT diameter: 1.79 cm Normal sized [...] Valve TR velocity: 2.51 m/s TR gradient: 25.40178 mmHg Estimated RAP: 3 mmHg RVSP: 28.12 [...] 1960 Age: 64 year(s) Corporate ID Number: [id number] Gender Female Half Backer: Giovanna Rock Height: 67 inches [facility] Referring Physician: HUEY HURTADO Weight: 225 pounds Interpreting JESSICA RAYMOND MD BMI: 35.24 kg/m^2 Physician: Date of Service: 11/30/2024 Blood Pressure: 118/59 mmHg Room Number: 579 Type of Study: TTE procedure: ECHO COMPLETE (DOPPLER / COLOR) W OR WO CONTRAST. Patient Status: Routine IP [facility] Adequate [facility] History/Tech Notes: [...] 1.35 m/s E/A ratio: 0.97 m/s Volume iyrspljaz692.99 LV length: 8.51 cm ml Volume smeeiddd76.96 ml LVOT diameter: 1.79 cm Normal sized [...] Valve TR velocity: 2.51 m/s TR gradient: 25.06126 mmHg Estimated RAP: 3 mmHg RVSP: 28.12 [...] in 5 days 12/05/2024 5:01 AM EDT [facility] Blood ENTIRE RIGHT UPPER ARM / Unknown Venipuncture / Unknown 11/30/2024 3:42 AM EDT 11/30/2024 4:09 AM EDT us Huey Hurtado MD MICROBIOLOGY - GENERAL ORDERABLE S Final Result Performing Organization Address [facility] Co de Phone Number [facility] [address] [phone] * Lactic Acid with reflex (11/30/2024 3:40 AM EDT) Lactic Acid Level (mmol/L) 0.9 0.5 - 2.2 mmol/L 11/30/2024 5:37 AM EDT [facility] Blood Venipuncture / Unknown 11/30/2024 3:40 AM EDT 11/30/2024 4:10 AM EDT us Huey Hurtado MD LAB BLOOD ORDERABLES Final Resul t Performing Organization Address [facility]/ZIP Co de Phone Number [facility] [address] [phone] * Procalcitonin (11/30/2024 3:40 AM EDT) Procalcitonin 0.26 See Comment ng/mL 11/30/2024 5:07 AM EDT [facility] Comment: Sepsis comment <0.5 Antibiotics [...] ORDERABLES Final Resul t Performing Organization Address [facility] Co de Phone Number [facility] [address] [phone] * (ABNORMAL) Iron and TIBC (11/30/2024 3:40 AM EDT) Iron 63 50 - 170 ug/dL 11/30/2024 6:13 PM EDT [facility] TIBC 183(L) 250 - 435 ug/dL 11/30/2024 6:13 PM EDT [facility] % Saturation 34 % 11/30/2024 6:13 PM EDT [facility] UIBC 120 11/30/2024 6:13 PM EDT [facility] Blood Venipuncture / Unknown 11/30/2024 3:40 AM EDT 11/30/2024 4:09 AM EDT us Rommel Batista MD LAB BLOOD ORDERABLES Final Res ult Performing Organization Address [facility]/ZIP Co de Phone Number [facility] [address] [phone] * aPTT (11/30/2024 3:40 AM EDT) aPTT 27.7 22.0 - 32.0 seconds 11/30/2024 4:32 AM EDT [facility] Blood Venipuncture / Unknown 11/30/2024 3:40 AM EDT 11/30/2024 4:10 AM EDT us Huey Hurtado MD LAB BLOOD ORDERABLES Final Resul t Performing Organization Address [facility] Phone Number [facility] [address] [phone] * (ABNORMAL) Prothrombin time/INR (11/30/2024 3:40 AM EDT) Protime 12.9(H) 9.0 - 12.0 seconds 11/30/2024 4:32 AM EDT [facility] INR 1.17(H) 0.80 - 1.10 11/30/2024 4:32 AM EDT [facility] LABORATORY Comment: Recommended therapeutic ranges using [...] ORDERABLES Final Resul t Performing Organization Address [facility] Phone Number [facility] [address] [phone] * (ABNORMAL) Uric acid (11/30/2024 3:40 AM EDT) Uric Acid 11.2(H) 2.5 - 6.2 mg/dL 11/30/2024 12:18 PM EDT [facility] Blood Venipuncture / Unknown 11/30/2024 3:40 AM EDT 11/30/2024 4:09 AM EDT us Hill Boo MD LAB BLOOD ORDERABLES Final Resu lt [facility] [address] [phone] * (ABNORMAL) Lactate dehydrogenase (LDH) (11/30/2024 3:40 AM EDT) LDH 261(H) 125 - 220 U/L 11/30/2024 12:18 PM EDT [facility] Blood Venipuncture / Unknown 11/30/2024 3:40 AM EDT 11/30/2024 4:09 AM EDT us Hill Boo MD LAB BLOOD ORDERABLES Final Resu lt Performing Organization Address [facility] Co de Phone Number [facility] [address] [phone] * Iron, serum (11/30/2024 3:40 AM EDT) Iron 64 50 - 170 ug/dL 11/30/2024 8:10 AM EDT [facility] Blood Venipuncture / Unknown 11/30/2024 3:40 AM EDT 11/30/2024 4:09 AM EDT us Timothy Bai MD LAB BLOOD ORDERABLES Final Result Performing Organization Address [facility] Co de Phone Number [facility] [address] [place] [address], [facility] [phone] * Folate, Serum (11/30/2024 3:40 AM EDT) Folate 7.0 7.0 - 31.4 ng/mL 11/30/2024 6:08 PM EDT [facility] Blood Venipuncture / Unknown 11/30/2024 3:40 AM EDT 11/30/2024 4:09 AM EDT us Rommel Batista MD LAB BLOOD ORDERABLES Final Res ult [facility] [address] [place] [address], [facility] [phone] * Vitamin B12 (11/30/2024 3:40 AM EDT) Vitamin B12 678 213 - 816 pg/mL 11/30/2024 8:10 AM EDT [facility] Blood Venipuncture / Unknown 11/30/2024 3:40 AM EDT 11/30/2024 4:09 AM EDT us Timothy Bai MD LAB BLOOD ORDERABLES Final Result [facility] [address] [place] [address], [facility] [phone] * EKG-SCANNED (11/30/2024) Only the most recent of3 resultswithin the time period is included. Narrative 11/30/2024 Ordered by an unspecified provider. 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
--- OUTSIDE RECORDS SUMMARY | 2025-01-11 13:55 | XMS_ITS | Data Portability ---
Author Organization [place] - [facility] - [place] [facility] ADMIN Address [address] [place] [address] Care Team Providers Care Medical Research Associate Name Role Phone SARI MIX Primary Care [...] History of colonoscopy: Colonoscopy performed 01/2021 at [facility] with polypectomy (TA). 1 year repeat [...] [facility], [address], [address], [place], [address], 3 07:14:09 CMP, serum or plasma 2022 023 [facility], [address], [address], [place], [address], 3 07:14:08 PT/INR 2022 023 [facility], [address], [address], [place], [address], 3 07:14:10 afp (alpha-feto protein) tumor marker, serum or plasma 2022 023 [facility], [address], [address], [place], [address], 3 07:14:12 JEANA (antinuclea r antibodies) screen, serum 2022 023 [facility], [address], [address], [place], [address], 3 07:14:14 mitochondri al Ab, serum 2022 023 [place] [address] [facility], [address], [address], [place], [address], 3 08:37:53 smooth muscle Ab, serum 2022 023 [facility], [address], [address], [place], [address], 3 07:14:11 igg, quantitativ e, serum 2022 023 [facility], [address], [address], [place], [address], 3 07:14:15 hepatitis B surface Ab, quantitativ e, serum 2022 023 [facility], [address], [address], [place], [address], 3 07:14:13 Referral None recorded. Procedures None recorded. Surgeries None recorded. Imaging US, liver 2022 023 [facility] ([facility] [address], [place], [address], 15:31:08 Medication Orders Xifaxan 550 mg tablet 2022 023 [facility], [address] [facility] [address], [place], [place], [id number], 16:07:45 Patient TargetsNo targets recorded. Patient InstructionsNo instructions recorded. Reason for Referral None Reported. Results Created Date Observation Date Name Description Value Unit Range Abnormal Flag Note LastModifiedBy Organization Detail LastModifiedTime 05/14/2005/15/2023 COMP. METAB OLIC PANEL (14) glucose 292 mg/dL 70-99 above high normal Not Available [facility] ([facility]) [address] [facility], [place], [address], 05/16/2023 07:14:08 05/14/2005/15/2023 COMP. METAB OLIC PANEL (14) BUN 39 mg/dL 8-27 above high normal Not Available [facility] ([facility]) [address] [facility] [place], [address], 05/16/2023 07:14:08 05/14/20 23 05/15/2023 COMP. METAB OLIC PANEL (14) creatinine 1.73 mg/dL 0.57-1 .00 above high normal Not Available [facility] ([facility]) [address] [facility] [place], [address], 05/16/2023 07:14:08 05/14/20 23 05/15/2023 COMP. METAB OLIC PANEL (14) eGFR 33 mL/mi n/1.7 3 >59 below low normal Not Available [facility] ([facility]) [address] [facility] [place], [address], 05/16/2023 07:14:08 05/14/20 23 05/15/2023 COMP. METAB OLIC PANEL (14) BUN/creatini ne ratio 23 12-28 Not Available [facility] ([facility]) [address] [facility] [place], [address], 05/16/2023 07:14:08 05/14/2005/15/2023 COMP. METAB OLIC PANEL (14) sodium 143 mmol/ L 134-14 4 Not Available [facility] ([facility]) [address] [facility] [place], [address], 05/16/2023 07:14:08 05/14/20 23 05/15/2023 COMP. METAB OLIC PANEL (14) potassium 4.8 mmol/ L 3.5-5. 2 Not Available [facility] ([facility]) [address] [facility] [place], [address], 05/16/2023 07:14:08 05/14/20 23 05/15/2023 COMP. METAB OLIC PANEL (14) chloride 103 mmol/ L 96-106 Not Available [facility] ([facility]) [address] [facility] [place], [address], 05/16/2023 07:14:08 05/14/20 23 05/15/2023 COMP. METAB OLIC PANEL (14) carbon dioxide, total 28 mmol/ L 20-29 Not Available [facility] ([facility]) [address] [facility], [place], [address], 05/16/2023 07:14:08 05/14/20 23 05/15/2023 COMP. METAB OLIC PANEL (14) calcium 9.2 mg/dL 8.7-10 .3 Not Available [facility] ([facility]) [address] [facility], [place], [address], 05/16/2023 07:14:08 05/14/20 23 05/15/2023 COMP. METAB OLIC PANEL (14) protein, total 7.4 g/dL 6.0-8. 5 Not Available [facility] ([facility]) [address] [facility], [place], [address], 05/16/2023 07:14:08 05/14/20 23 05/15/2023 COMP. METAB OLIC PANEL (14) albumin 4.1 g/dL 3.9-4. 9 Not Available [facility] ([facility]) [address] [facility], [place], [address], 05/16/2023 07:14:08 05/14/20 23 05/15/2023 COMP. METAB OLIC PANEL (14) globulin, total 3.3 g/dL 1.5-4. 5 Not Available [facility] ([facility]) [address] [facility], [place], [address], 05/16/2023 07:14:08 05/14/20 23 05/15/2023 COMP. METAB OLIC PANEL (14) A/G ratio 1.2 1.2-2. 2 Not Available [facility] ([facility]) [address] [facility], [place], [address], 05/16/2023 07:14:08 05/14/20 23 05/15/2023 COMP. METAB OLIC PANEL (14) bilirubin, total 0.7 mg/dL 0.0-1. 2 Not Available [facility] ([facility]) [address] [facility], [place], [address], 05/16/2023 07:14:08 05/14/20 23 05/15/2023 COMP. METAB OLIC PANEL (14) alkaline phosphatase 144 IU/L 44-121 above high normal Not Available [facility] ([facility]) [address] [facility], [place], [address], 05/16/2023 07:14:08 05/14/2005/15/2023 COMP. METAB OLIC PANEL (14) AST (SGOT) 39 IU/L 0-40 Not Available [facility] ([facility]) [address] [facility], [place], [address], 05/16/2023 07:14:08 05/14/2005/15/2023 COMP. METAB OLIC PANEL (14) ALT (SGPT) 27 IU/L 0-32 Not Available [facility] ([facility]) [address] [facility], [place], [address], 05/16/2023 07:14:08 05/14/2005/15/2023 CBC, PLATE LET, NO DIFFE RENTI AL WBC 3.8 x10e3 /uL 3.4-10 .8 Not Available [facility] ([facility]) [address] [facility], [place], [address], 05/16/2023 07:14:09 05/14/2005/15/2023 CBC, PLATE LET, NO DIFFE RENTI AL RBC 3.98 x10e6 /uL 3.77-5 .28 Not Available [facility] ([facility]) [address] [facility], [place], [address], 05/16/2023 07:14:09 05/14/2005/15/2023 CBC, PLATE LET, NO DIFFE RENTI AL hemoglobin 12.9 g/dL 11.1-1 5.9 Not Available [facility] ([facility]) [address] [facility], [place], [address], 05/16/2023 07:14:09 05/14/2005/15/2023 CBC, PLATE LET, NO DIFFE RENTI AL hematocrit 39.7 % 34.0-4 6.6 Not Available [facility] ([facility]) [address] [facility], [place], [address], 05/16/2023 07:14:09 05/14/2005/15/2023 CBC, PLATE LET, NO DIFFE RENTI AL MCV 100 fL 79-97 above high normal Not Available [facility] ([facility]) [address] [facility], [place], [address], 05/16/2023 07:14:09 05/14/2005/15/2023 CBC, PLATE LET, NO DIFFE RENTI AL MCH 32.4 pg 26.6-3 3.0 Not Available [facility] ([facility]) [address] [facility], [place], [address], 05/16/2023 07:14:09 05/14/2005/15/2023 CBC, PLATE LET, NO DIFFE RENTI AL MCHC 32.5 g/dL 31.5-3 5.7 Not Available [facility] ([facility]) [address] [place], [address], 05/16/2023 07:14:09 05/14/2005/15/2023 CBC, PLATE LET, NO DIFFE RENTI AL RDW 14.1 % 11.7-1 5.4 Not Available [facility] ([facility]) [address] [facility], [place], [address], 05/16/2023 07:14:09 05/14/2005/15/2023 CBC, PLATE LET, NO DIFFE RENTI AL platelets 81 x10e3 /uL 150-45 0 alert low Plate let count verif ied by exami natio n of perip heral blood smear . Not Available [facility] ([facility]) [address] [facility], [place], [address], 05/16/2023 07:14:09 05/14/2005/15/2023 CBC, PLATE LET, NO DIFFE RENTI AL hematology comments: NOTE: Verif ied by micro scopi c exami natio n. Not Available [facility] ([facility]) [address] [facility], [place], [address], 05/16/2023 07:14:09 05/14/2005/15/2023 CBC, PLATE LET, NO DIFFE RENTI AL NRBC ROSS CARRIER DRIVER Not Available [facility] ([facility]) [address] [facility], [place], [address], 05/16/2023 07:14:09 05/14/2005/15/2023 PROTH ROMBI N TIME [...] 2.5 - 3.5 Not Available [facility] ([facility]) [address] [facility], [place], [address], 05/16/2023 07:14:10 05/14/2005/15/2023 PROTH ROMBI N TIME (PT), SERIA L prothrombin time 11.9 sec 9.1-12 .0 Not Available [facility] ([facility]) [address] [facility], [place], [address], 05/16/2023 07:14:10 05/14/2005/15/2023 PROTH ROMBI N TIME (PT), SERIA L pdf . Not Available [facility] ([facility]) [address] [place], [address], 05/16/2023 07:14:10 05/14/2005/15/2023 ANTI- AIXA H MUSCL [...] ry cirrh osis. Not Available [facility] ([facility]) [address] [place], [address], 05/16/2023 07:14:11 05/14/2005/15/2023 ANTI- AIXA H MUSCL E/TAHIR OCHON D. mitochondria l (M2) antibody <20.0 units 0.0-20 .0 Negat marnie 0.0 - 20.0 Equiv ocal 20.1 - 24.9 Posit marnie >24.9 Mitoc hondr ial (M2) Antib odies are found in 90-96 % of patie nts with prima ry bilia ry cirrh osis. Not Available [facility] ([facility]) [address] [place], [address], 05/16/2023 07:14:11 05/14/2005/15/2023 AFP, SERUM , TUMOR [...] ant femal es. Not Available [facility] ([facility]) [address] [place], [address], 05/16/2023 07:14:12 05/14/2005/15/2023 HEPAT ITIS B SURF AB QUANT hepatitis B surf Ab quant <3.1 mIU/m L immuni ty>9.9 below low normal Statu s of Immun ity Anti- HBs Level ----- ----- ----- --- ----- ----- ---- Incon siste nt with Immun ity 0.0 - 9.9 Consi stent with Immun ity >9.9 Not Available [facility] ([facility]) [address] [place], [address], 05/16/2023 07:14:13 05/14/2005/15/2023 JEANA W/REF KISHOR IF POSIT MARINE JEANA direct POSITI VE negati ve abnormal Not Available [facility] ([facility]) [address] [place], [address], 05/16/2023 07:14:14 05/14/2005/15/2023 JEANA W/REF KISHOR IF POSIT MARNIE anti-DNA (ds) Ab qn <1 IU/mL 0-9 Negat marnie <5 Equiv ocal 5 - 9 Posit marnie >9 Not Available [facility] ([facility]) [address] [place], [address], 05/16/2023 07:14:14 05/14/2005/15/2023 JEANA W/REF KISHOR IF POSIT MARNIE line fixer antibodies <0.2 ai 0.0-0. 9 Not Available [facility] ([facility]) [address] [place], [address], 05/16/2023 07:14:14 05/14/2005/15/2023 JEANA W/REF KISHOR IF POSIT MARNIE perez antibodies <0.2 ai 0.0-0. 9 Not Available [facility] ([facility]) [address] [place], [address], 05/16/2023 07:14:14 05/14/2005/15/2023 JEANA W/REF KISHOR IF POSIT MARNIE antisclerode rma-70 antibodies 0.3 ai 0.0-0. 9 Not Available [facility] ([facility]) [address] [place], [address], 05/16/2023 07:14:14 05/14/2005/15/2023 JEANA W/REF KISHOR IF POSIT MARNIE sjogren's anti-ss-A <0.2 ai 0.0-0. 9 Not Available [facility] ([facility]) [address] [place], [address], 05/16/2023 07:14:14 05/14/2005/15/2023 JEANA W/REF KISHOR IF POSIT MARNIE sjogren's anti-ss-B <0.2 ai 0.0-0. 9 Not Available [facility] ([facility]) [address] [place], [address], 05/16/2023 07:14:14 05/14/2005/15/2023 JEANA W/REF KISHOR IF POSIT MARNIE antichromati n antibodies <0.2 ai 0.0-0. 9 Not Available [facility] ([facility]) [address] [place], [address], 05/16/2023 07:14:14 05/14/2005/15/2023 JEANA W/REF KISHOR IF POSIT MARNIE anti-trisha-1 <0.2 ai 0.0-0. 9 Not Available [facility] ([facility]) [address] [place], [address], 05/16/2023 07:14:14 05/14/2005/15/2023 JEANA W/REF KISHOR IF POSIT MARNIE anti-centrom ere B antibodies 2.7 ai 0.0-0. 9 above high normal Not Available [facility] ([facility]) [address] [facility], [place], [address], 05/16/2023 07:14:14 05/14/2005/16/2023 JEANA W/REF KISHOR IF POSIT MARNIE complement C3, serum 109 mg/dL 82-167 Not Available [facility] ([facility]) [address] [facility], [place], [address], 05/16/2023 07:14:14 05/14/2005/16/2023 JEANA W/REF KISHOR IF POSIT MARNIE complement C4, serum 20 mg/dL 12-38 Not Available [facility] ([facility]) [address] [facility], [place], [address], 05/16/2023 07:14:14 05/14/2005/15/2023 IMMUN OGLOB ULIN G, QN, SERUM immunoglobul in g, qn, serum 1562 mg/dL 586-16 02 Not Available [facility] ([facility]) [address] [facility], [place], [address], 05/16/2023 07:14:15 06/06/2006/06/2023 US, liver No observ ation record ed. [facility] [address], [place], [address], 06/13/2023 12:55:07 Result Notes None recorded. Problems Name Problem SNOMED Code Status Onset Date Resolution Date Notes Provider Name and Address Organization Details Recorded Time Stage 3 hepatic fibrosis 6643439589588 9109 Active 2022 Raul Kincaid PA-C [address], [place], [address] , [facility] & [place] 04/13/202 3 08:26:45 Anticentro mere antibody pattern 153066826 Active 2022 Raul Kincaid PA-C [address], [place], [place], [address] [place] [address] , [facility] & [place] 3 08:27:15 Metabolic dysfunctio n-associat ed steatohepa titis 863954159 Active 2022 Raul Kincaid PA-C [address], [place] [address] , [facility] & [place] 3 08:28:41 Hepatic encephalop athy 29741735 Active 2022 Raul Kincaid PA-C [address], [place] [address] , [facility] & [place] 3 10:58:50 Anti-nucle ar factor detected 240669885 Active 2022 Raul Kincaid PA-C [address], [place] [address] , [facility] & [place] 3 16:09:02 Problem Notes None recorded. Medical [...] Address Organization Details Last Updated DateTime 3 20614.9 4 g 97.4 [degF] 32.6 kg/m2 167.64 cm 84 /min 91 /min 98 % 98 % 131 mm[Hg] 72 mm[Hg] Luz Maria Pike [facility] & [place] 10:32:47 Social History Question Answer Notes LastModified by [employer] ion Details LastModified Time Tobacco Smoking Status Never Smoker Luz Maria ayala, [facility] & [place] 05/14/2023 10:31:56 What Is Your Level Of Caffeine Consumption? Moderate [email or web address] Information not available 05/14/2023 Sex: Unknown Functional Status Question Answer Note LastModified by Organizat ion Details LastModified Time Do you use any illicit or recreational drugs? No [email or web address] Information not available 05/14/2023 Do you or have you ever used any other forms of tobacco or nicotine? No [email or web address] Information not available 05/14/2023 What is your level of alcohol consumption? Occasional [email or web address] Information not available 05/14/2023 Mental Status None [...] SNOMED-CT Code Diagnosis ICD10 Code Diagnosis Note [id number] Raul Kincaid PA-C [facility] [address] 05/14/2023 10:00:22 05/14/2023 11:33:43 Stage 3 hepatic fibrosis 7687231145 2366266 K74.02 Hepatic encephalopathy 29203167 K76.82 History of polyp of colon 899809095 Z86.010 Anti-nucle ar factor detected 740206522 R76.8 Anticentro mere antibody pattern 471303103 R76.8 Health Concerns Section Related Observation LastModified by Organization Detai ls LastModified Time None Recorded Concern Status LastModified by Organization Details LastModified Time None Recorded Advance Directives Directive None Recorded Payers Insurance Date Sequence Insurance Name Policy Number Policy Deng Covered Member ID Deng Member ID Guarantor Name 02/14/2024 1 [employer] (MEDICARE REPLACEMENT/A DVANTAGE - PPO) Mary Coronel [id number] Mary Coronel 02/14/2024 2 [employer] [place] (MEDICARE [place]AC[place]/A DVANTAGE - HMO) Mary Coronel [id number] Mary Coronel Notes Date Note Type Note [...] last appointment for colonoscopy. Raul Kincaid PA-C [address], [place], [address], [facility] - [place] & [place] 05/14/2023 16:14:59 OBGyn Episode No OBEpisode recorded.
--- OUTSIDE RECORDS SUMMARY | 2025-01-11 13:57 | XMS_ITS | Encounter Summary ---
Author Organization [facility] Address [address] [place] [address] Care Team Providers Care Event Marketing Manager Name Role Phone Larry Bedolla MD Primary Care Provider + [phone] Sary Brannon CIGAR HEAD PERFORATOR Unavailable [phone] Reason for Referral * Transplant (Routine) - Pending Review Specialty Diagnoses / Procedures Referred By Contmazin t Referred To Contact Transplant Diagnoses End-stage liver disease (CMS/HCC) Sary Brannon APRN [address] [facility] [address] [place] [address] Phone: tel: fax: [facility] [address] [address] Phone: tel: fax: Referral ID Status Reason Start Date Expiration Date Visits Requested Visits Authorized [id number] Pending Review Specialty Services Required 01/07/2025 07/09/2026 999 999 Reason for Visit * Reason Comments Referral - Liver Txp Encounter Details Date Type Department Care Team (Late st Contact Info) Description 01/07/2025 Telephone [facility] [address] [address] [place] [phone] Referral - Liver Txp Social History Tobacco [...] Venous blood specimen / Unknown 01/03/2025 Result [facility] Provider LAB BLOOD ORDERABLES Afsaneh l Result * Creatinine, Plasma (01/03/2025) External Creatinine Blood 3.00 mg/dL Blood Venous blood specimen / Unknown 01/03/2025 Result [facility] Provider LAB BLOOD ORDERABLES Afsaneh l Result * Albumin, Plasma (01/03/2025) External Albumin 3.6 g/dL Blood Venous blood specimen / Unknown 01/03/2025 Result [facility] LAB BLOOD ORDERABLES Afsaneh l Result * Albumin, Plasma (12/14/2024) External Albumin 3.2 g/dL Blood Venous blood specimen / Unknown 12/14/2024 Result [facility] LAB BLOOD ORDERABLES Afsaneh l Result * Total Bilirubin, Plasma (12/14/2024) External Bilirubin Total 0.9 mg/dL Blood Venous blood specimen / Unknown 12/14/2024 Result [facility] LAB BLOOD ORDERABLES Afsaneh l Result * Creatinine, Plasma (12/14/2024) External Creatinine Blood 2.22 mg/dL Blood Venous blood specimen / Unknown 12/14/2024 Result [facility] LAB BLOOD ORDERABLES Afsaneh l Result * Sodium, Plasma (12/14/2024) External Sodium 145 mmol/L Blood Venous blood specimen / Unknown 12/14/2024 Result [facility] LAB BLOOD ORDERABLES Afsaneh l Result * [...] documented as of this encounter Care Teams Event Marketing Manager Relationship Specialty Start Date End Date Larry Bedolla MD [address] [place] [address] [place] [address] PCP - General 12/08/20 Sary Brannon APRN [address] [place] [address] Referring Physician Gastroenterology 01/07/25 documented as of this encounter
--- OUTSIDE RECORDS SUMMARY | 2025-01-11 13:57 | XMS_ITS ---
Author Organization Healthcare Address [address] [place] [address] Care Team Providers Care Lacquer Dipping Machine Operator Name Role Phone Larry Bedolla MD Primary Care Provider + [phone] Sary Brannon CUSTOMER SUCCESS DIRECTOR Unavailable [phone] Transplant Episode Liver Candidate [facility] ([place], [place]) - JOSÉ LUIS Referred on 01/07/2025 Marked as Active on 01/07/2025 Liver CoordinatorJessica Simms Fax: N/A Email: N/A Care Team Name Role Phone Fax Email Jessica Simms Liver Coordinator [phone] N/A N/A Sary Brannon APRN Referring Physician [phone] N/A Gem Clark Purification Operator Helper [phone] N/A N/A Edil Kiran MD Surgeon [phone] N/A Events Pre-Transplant Referred: 01/07/2025
--- OUTSIDE RECORDS SUMMARY | 2025-01-11 13:57 | XMS_ITS | Encounter Summary ---
Author Organization Healthcare Address [address] [place] [address] Care Team Providers Care Theatre Program Director Name Role Phone Larry Bedolla MD Primary Care Provider + [phone] [place] Sary Braxton SLIP CASTER Unavailable [phone] Encounter Details Date Type Department Care Team (Late st Contact Info) Description 01/21/2022 Community [facility] Community Practice [address] [place] [address] Larry Bedolla MD [address] [id number] Central stenosis of spinal canal (Primary Dx) [...] documented as of this encounter Care Teams Theatre Program Director Relationship Specialty Start Date End Date Larry Bedolla MD [address] [facility] [place] [address] PCP - General 12/08/20 Sary Brannon APRN [address] [facility] [address] [place] [address] Referring Physician Gastroenterology 01/07/25 documented as of this encounter
--- OUTSIDE RECORDS SUMMARY | 2025-01-11 13:57 | XMS_ITS | Encounter Summary ---
Author Organization Healthcare Address [address] [place] [address] Care Team Providers Care Hotel Registration Clerk Name Role Phone Larry Bedolla MD Primary Care Provider + [phone] Sary Brannon NUTRITION SERVICES AIDE Unavailable [phone] Encounter Details Date Type Department Care Team (Late st Contact Info) Description 01/03/2025 Community [facility] Community Practice [address] [place] [address] Sary Brannon, NUTRITION SERVICES AIDE [address] [place] [address] [place] [address] Social History Tobacco Use Types Packs/Day Years [...] documented as of this encounter Care Teams Hotel Registration Clerk Relationship Specialty Start Date End Date Larry Bedolla MD [address] [facility] [place] [address] PCP - General 12/08/20 Sary Brannon APRN [address] [place] [address] Referring Physician Gastroenterology 01/07/25 documented as of this encounter
--- OUTSIDE RECORDS SUMMARY | 2025-01-11 13:57 | XMS_ITS | Clinical Summary ---
Author Organization [facility] [place] [address] Care Team Providers Care Steam Blocker Name Role Phone Unavailable Primary Care Provider [...]
--- OUTSIDE RECORDS SUMMARY | 2025-01-11 13:57 | XMS_ITS | Encounter Summary ---
Author Organization Healthcare Address [address] [place] [address] Care Team Providers Care Hot Packer Name Role Phone Larry Bedolla MD Primary Care Provider + [phone] Sary Brannon SEPARATOR INSERTER Unavailable [phone] Reason for Visit * Reason Comments Med Refill Encounter Details Date Type Department Care Team (Late st Contact Info) Description 04/12/2021 Refill [facility] Endocrinology [address] [place] [address] Lina Lowe, SEPARATOR INSERTER [address] [facility] [address] [place] [address] Social History Tobacco Use Types [...] on filedocumented in this encounter Care Teams Hot Packer Relationship Specialty Start Date End Date Larry Bedolla MD [address] [place] [address] PCP - General 12/08/20 Sary Brannon APRN [address] [place] [address] [place] [address] Referring Physician Gastroenterology 01/07/25 documented as of this encounter
--- OUTSIDE RECORDS SUMMARY | 2025-01-11 13:57 | XMS_ITS | Encounter Summary ---
Author Organization [facility] [employer] Address [address] [place] [address] Care Team Providers Care Newspaper Photo Editor Name Role Phone [facility], Find-A-Doc Primary Care Provider Encounter Details [...] Do you speak a language other than [place] at [facility]? No 11/30/2024 Do you want help [...] Description 01/27/2025 10:45 AM EDT Office Visit [facility] Electrophysiology [address] [place] [address] Quincy Foss MD [address] [facility] [address] [place] [address] documented as of this encounter Visit Diagnoses Not on filedocumented in this encounter Care Teams Newspaper Photo Editor Relationship Specialty Start Date End Date [facility], Find-A-Doc [facility] [place] [address] PCP - General 11/30/24 12/13/24 documented as of this encounter
--- OUTSIDE RECORDS SUMMARY | 2025-01-11 13:57 | XMS_ITS | Encounter Summary ---
Author Organization Healthcare Address [address] [place] [address] Care Team Providers Care Vice President Marketing & Development Name Role Phone Larry Bedolla MD Primary Care Provider + [phone] Sary Brannon BLUNGER LOADER Unavailable [phone] Reason for Referral * Consultation (Routine) - Closed Specialty Diagnoses / Procedures Referred By Mayela may Referred To Contact Hepatology Diagnoses Bilious vomiting with nausea Anticentromere antibodies present Thrombopenia (CMS/HCC) Stage 3 hepatic fibrosis Raul Kincaid PA [address] [place] [address] Phone: tel: fax: Referral ID Status Reason Start Date Expiration Date V isits Requested Visits Authorized [id number] Closed Specialty Services Required 09/27/2021 03/29/2023 1 1 Encounter Details Date Type Department Care Team (Late st Contact Info) Description 09/27/2021 Community [facility] Community Practice [address] [place] [address] Raul Kincaid PA [address] [place] [address] Bilious vomiting with nausea (Primary [...] fibrosis documented in this encounter Care Teams Vice President Marketing & Development Relationship Specialty Start Date End Date Larry Bedolla MD [address] [place] [address] [place] [address] PCP - General 12/08/20 Sary Brannon APRN [address] [place] [address] [address] [place] [address] Referring Physician Gastroenterology 01/07/25 documented as of this encounter
--- OUTSIDE RECORDS SUMMARY | 2025-01-11 13:57 | XMS_ITS | Clinical Summary ---
Author Organization Healthcare Address [address] [place] [address] Care Team Providers Care Welfare Interviewer Name Role Phone Larry Bedolla MD Primary Care Provider + [phone] Sary Brannon ROD MILL TENDER Unavailable [phone] Allergies No known active allergies Medications bisoprolol [...] 3 INJECTIONS DAILY 1 Active HYDROcodone-acetam inophen ([place]) 10-325 MG tablet 3 Active spironolactone (Aldactone) 25 MG tablet Take 25 mg by mouth 1 (one) time each day. 3 Active furosemide (Lasix) 40 MG tablet Take by mouth 2 (two) times a day. 3 Active Insulin Lispro (HUMALOG IJ) Inject as directed. 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, [...] Type Department Care Team Description 01/07/2025 Telephone [facility] [address] [address] Kasey Dye Referral - Liver Txp 01/03/2025 Community [facility] Community Practice [address] [place] [address] Sary Brannon APRN from Last 3 Months [...] 2007 Sigmoidoscopy 2007 [facility]-Colorectal Cancer Screening 2007 [id number] Vaccine ( season) 2024 05/13/2021, 04/15/2021, 11/08/2020 [...] Venous blood specimen / Unknown 01/03/2025 Result [facility] Provider MD LAB BLOOD ORDERABLES Afsaneh l Result * Total Bilirubin, Plasma (12/14/2024) External Bilirubin Total 0.9 mg/dL Blood Venous blood specimen / Unknown 12/14/2024 Result [facility] Provider MD LAB BLOOD ORDERABLES Afsaneh l Result * Prothrombin Time/INR (11/30/2024) External Prothrombin Time (PT) 12.9 External INR - Internormal Ratio 1.17 Blood Venous blood specimen / Unknown 11/30/2024 Result [facility] Provider MD LAB BLOOD ORDERABLES Afsaneh l [...] PM EDT 01/24/2016 6:17 PM EDT Result [facility] Sherri Adkins APRN LAB BLOOD ORDERABLES Final Result [facility] from Last 3 Months or Most Recently Relevant to Health Maintenance Insurance [employer]ICAID [employer]ICARE [employer]ICAID Care Teams Welfare Interviewer Relationship Specialty Start Date End Date Larry Bedolla MD [address] [place] [address] PCP - General 5/14/21 Sary Brannon APRN [address] [place] [address] [place] [address] Referring Physician Gastroenterology 01/07/25
[2025-01-11 14:30] VITALS: BMI 25.6
== END 2025-01-11 23:59 | disposition home or self-care (01) ==
LOC: DIETICIAN 13:48
PROVIDERS: PCP Family Medicine; Visit Provider Nurse Practitioner Family
DX: K74.60 Unspecified cirrhosis of liver (principal)
CPT/HCPCS: 97802

== ENCOUNTER 2025-01-17 10:33 | Outpatient (CLI) | payer MEDICARE, MEDICAID, SELFPAY ==
--- OUTSIDE RECORDS SUMMARY | 2024-11-30 01:43 | XMS_ITS | Encounter Summary ---
Author Organization [employer] Address [address] [place] [address] Care Team Providers Care Green Ware Caster Name Role Phone [facility], Find-A-Doc Primary Care Provider Provider, Not In System Primary Care Provider Un available Reason for Visit * Auth/Cert (Routine) Specialty Diagnoses / Procedures Referred By Mayela may Referred To Contact Diagnoses Anasarca ACUTE RENAL FAILURE [address] Medical Telemetry [address] [place] [address] Phone: tel: fax: [address] Telemetry [address] [place] [address] Phone: tel: fax: Referral ID Status Reason Start Date Expiration Date Visits Re quested Visits Authorized [id number] 1 1 Encounter Details Date Type Department Care Team (Late st Contact Info) Description 11/30/2024 1:43 AM EDT - 12/14/2024 5:30 PM EDT Hospital Encounter [address] Medical Telemetry [address] [place] [address] Albert Garcia MD [address] [place] [address] Timothy Bai MD [address] [place], [place] [id number] Mary Carmen Mcfadden MD [address] [facility] [address] [place] [address] [id number] Venkatesh Stephen MD [address] [facility] [address] [place] [address] [id number] David Coffman PA-C [address] [place] [address] Huey Hurtado MD 130[address] [facility] [address] [place], [place] [id number] Keren (Primary Dx); Anasarca Discharge Disposition: Home [...] Date Record ed How often does anyone, virginiasean diallo family and friends, physically hurt you? Never 11/30/2024 How often does anyone, june diallo family and friends, insult or talk down to you? Never 11/30/2024 How often does anyone, june diallo family and friends, threaten you with harm? Never 11/30/2024 How often does anyone, june diallo family and friends, scream or curse [...] Do you speak a language other than [facility]? No 11/30/2024 Do you want help [...] Coffman PA-C - 12/14/2024 12:42 PM EDT [facility] Discharge Summary Patient Name: Mary Coronel : 1960 Date of Admission: 11/30/2024 Date of Discharge: 12/14/2024 Primary Care Physician: Not In System Provider Hospital Course Magazine Writer(s): Discharge Diagnosis: Anasarca Cirrhosis Paroxysmal atrial fibrillation/nonsustained [...] diabetes, CKD, CAD, arthritis. Patient presented to [facility] with swollen abdomen, abdominal discomfort and bilateral lower extremity pitting edema.Patient's BUN/creatinine elevated, and patient subsequently transferred to [facility] for hepatorenal syndrome evaluation. Admits to [...] days. Patient's niece forced patient to visit [facility] emergency room today she really loves me. [...] a bone marrow biopsy which was unremarkable. [employer] that she had anemia of chronic disease [...] Your Medications These medications were sent to [facility] [address] [place] [address] [address] amiodarone 200 MG tablet ergocalciferol 1,250 mcg (50,000 unit) capsule lactulose 10 gram/15 mL solution pantoprazole 40 MG tablet rifAXIMin 550 mg These medications [facility] [address] [address] metOLazone 2.5 MG tablet tamsulosin 0.4 mg [...] Contact information for follow-up [facility] [address] [facility] [id number] Next Steps: Go in 2 week(s) Instructions: Nephrology follow up 12/30/24 @8:45am Follow up with NAL in 1-2 weeks with renal function panel Primary care provider (PCP) Next Steps: Follow up Monika Hernandez APRN [facility] Primary Care [address] [place] [address] Next Steps: Go in 1 week(s) Instructions: PCP follow up 12/22/24 @3:00pm Time Spent on Discharge: I spent 35 minutes in ewps-ae-ppbn time with the patient and nursing staffconcerning [...] by: Brad Coffman PA-C 12/14/2024, 12:42 PM [facility] * Mary Carmen Mcfadden MD - 12/07/2024 10:20 AM EDT Patient Name: Mary Coronel : 1960 Date of Admission: 11/30/2024 Date of Discharge: No discharge date for patient encounter. Primary Care Physician: [facility] Find-a-Doc Consultations: Treatment Team: Consulting Physician: Nikolai Bryson MD Consulting Physician: Laura Rangel MD Discharge Diagnoses: Anasarca Paroxysmal Atrial Fib *CAD *Diabetes mellitus *HTN *HLD *pancytopenia *GERMÁN current GFR 15. Nonalcoholic liver cirrhosis with ascites Ascites Status post paracentesis Duodenal ulcer Anasarca Diabetes mellitus Acute renal failure Reason for Admission: Mary Coronel is a 64 y.o. female presenting with past medical history of NAFLD October 2024, hypertension, hyperlipidemia, diabetes, CKD, CAD, arthritis. Patient presented to [facility] with swollen abdomen, abdominal discomfort and bilateral lower extremity pitting edema.Patient's BUN/creatinine elevated, and patient subsequently transferred to [facility] for hepatorenal syndrome evaluation. Admits to [...] days. Patient's niece forced patient to visit [facility] emergency room today she really loves me. [...] Your Medications These medications were sent to [facility] [address] [facility] [address] [place] [phone] amiodarone 200 MG tablet amoxicillin-clavulanate 500-125 mg [...] to 2-week Nephrology 1 to 2-week Disposition [facility] facility Time Spent: 45 min Electronically signed by [...] total) by mouth daily. 15 tablet 12/14/2024 amiodarone (PACERONE) 200 MG tablet Take 1 [...] for 30 days. 60 tablet 12/06/2024 5 tamsulosin (FLOMAX) 0.4 mg cap 24 hr capsule Take 1 capsule (0.4 mg total) by mouth every evening for 30 days. 30 capsule 12/14/2024 5 documented as of this encounter Progress [...] renal function - No emergent need of KENNEL KEEPER - Monitor H/H and transfuse for Hgb less than 7.0 Follow up with NAL in 1-2 weeks with renal function panel Hema Cervantes MD 12/14/24 12:15 PM * KENNEY Zaragoza - 12/14/2024 12:17 PM EDTSummary: Case Management DCP - Home with Home [...] additional home health needs. Patient/family provided with [facility] approved choice list and Patient choice letter [...] mg oral Daily 200 mg at 12/13/24 09 atorvastatin 20 mg oral Every Night 20 [...] g oral BID 10 g at 12/13/24 09 metOLazone 2.5 mg oral Daily 2.5 mg at 12/13/24 09 pantoprazole 40 mg oral BID 40 mg at 12/13/24 09 rifAXIMin 550 mg oral BID 550 mg at 12/13/24 09 spironolactone 12.5 mg oral Daily 12.5 mg at 12/13/24 09 tamsulosin 0.4 mg oral QPM 0.4 mg [...] Deysi Foss MD 200 mg at 12/13/24 09 ammonium lactate (LAC-HYDRIN) lotion 12% topical PRN Huey Hurtado MD atorvastatin (LIPITOR) tablet 20 mg 20 mg oral Every Night Huey Hurtado MD 20 mg at 12/12/24 2144 benzocaine-menthoL (CEPACOL) lozenge 1 lozenge 1 lozenge buccal Q2H PRN Timothy Bai MD bumetanide (BUMEX) tablet 2 mg 2 mg oral BID Hema Cervantes MD 2 mg at 12/13/24 09 dextrose 50% (D50W) injection 25 g 25 [...] Timothy Bai MD 10 g at 12/13/24 09 [Held by provider] melatonin tablet 3 mg 3 mg oral Every Night PRN Huey Hurtado MD metOLazone (ZAROXOLYN) tablet 2.5 mg 2.5 mg oral Daily Hema Cervantes MD 2.5 mg at 12/13/24 09 ondansetron (ZOFRAN-ODT) disintegrating tablet 4 mg 4 [...] Hematology/oncology following. Acute hypoxemic/hypercapnic respiratory failure - [employer] to be due to pulmonary edema from [...] SNF/Rehab, etc): TBD Signed: Brad Coffman PA-C [facility] Hospitalist * Rea Bishop, ANALISA - [...] intakes reported. Pt states she ate well [employer] but hasn't had much of an appetite for past 4 days. Requested chicken noodle soup for lunch. Agreeable to ONS TID. Past Medical/Surgical History: Past Medical History: Diagnosis Date Cirrhosis, non-alcoholic (HCC) Diabetes mellitus (HCC) Hypertension Past Surgical History: Procedure Laterality Date ESOPHAGOGASTRODUODENOSCOPY (EGD),REMOVAL FOREIGN BODY N/A 12/01/2024 Procedure: EGD, WITH FOREIGN BODY REMOVAL; Surgeon: Scott Daley MD; Location: [facility]; Service: Gastroenterology; Laterality: N/A; Vitals and Basic [...] with severity: none Energy intake hx: good [employer] (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 She initially presented to [facility] with swollen abdomen, abdominal discomfort, and bilateral lower extremity pain. Her creatinine was elevated and as a result, she was transferred to [facility] for he patorenal syndrome. Upon arrival [...] BODY REMOVAL; Surgeon: Scott Daley MD; Location: [facility]; Service: Gastroenterology; Laterality: N/A; Allergies: No Known [...] POC-GLUCOSE 127 (H) 70 - 110 mg/dL [employer] U[employer]ol[employer] [id number] Glucose, Nova Meter Status: Abnormal Collection Time: 12/13/24 11:15 AM Result Value Ref Range POC-GLUCOSE 221 (H) 70 - 110 mg/dL [employer] [id number] Glucose, Nova Meter Status: Abnormal Collection Time: 12/13/24 4:24 PM Result Value Ref Range POC-GLUCOSE 156 (H) 70 - 110 mg/dL [employer] [id number] Glucose, Nova Meter Status: Abnormal Collection Time: 12/13/24 8:20 PM Result Value Ref Range POC-GLUCOSE 186 (H) 70 - 110 mg/dL [employer] [id number] Radiology Radiology Results (last day) No results found for the last 24 hours. Microbiology: Microbiology Results (last 7 days) Procedure Component Value Units Date/Time Fungus Culture W/ROSA MARIA Or Nimisha Ink [[id number]] Collected: 11/30/24 160 Order Status: Completed Specimen: Peritoneal Fluid from Body Fluid Updated: 12/07/24 170 Result No fungus isolated at 1 week. ROSA MARIA Prep No fungal elements seen Narrative: Specimen Description: peritoneal fluid AFB Culture And Stain [[id number]] Collected: 11/30/24 160 Order Status: Completed Specimen: [...] to continue with albumin/diuretics no indication for KENNEL KEEPER No significant pleural effusion for thoracentesis If needed repeat chest x-ray. Otherwise continue diuresis Pulmonary will sign off. Please call for any issues Case discussed during round. I have personally evaluated the patient and performed a qgze-yz-mwfm diagnostic evaluation on this patient; I have reviewed history, performed physical examination, reviewed laboratory studies. , andreviewed images independent of radiologist. I have actively directed the medical care, formulated assessemnt and plan of care. Patient requires a high complexity of decision making for assessment. Voice manager relocation technology (CamStent) is used for dictation of this note and sound-alike words might be erroneously placed despite reviewing the note for accuracy.Errors in dictation may reflect use of voice recognition software and not all errors in manager relocation may have been detectedprior to signing * [...] renal function - No emergent need of KENNEL KEEPER - Monitor H/H and transfuse for Hgb less than 7.0 Follow up with NAL in 1-2 weeks with renal function panel Hema Cervantes MD 12/13/24 12:15 PM * Jayde Hansen PTA - 12/13/2024 10:28 AM EDT Images from [...] admitted on: 11/30/2024 1:43 AM. presented to [facility] with swollen abdomen, abdominal discomfort and bilateral lower extremity pitting edema. Patient's BUN/creatinine elevated, and patient subsequently transferred to [facility] for hepatorenal syndrome evaluation. Admits to [...] 10 g oral BID 10 g at 12/12/242148 metOLazone 2.5 mg oral Daily 2.5 mg [...] Night Huey Hurtado MD 20 mg at 12/12/242143 benzocaine-menthoL (CEPACOL) lozenge 1 lozenge 1 lozenge buccal Q2H PRN Timothy Bai MD bumetanide (BUMEX) tablet 2 mg 2 mg oral BID Hema Cervantes MD 2 mg at 12/12/242143 dextrose 50% (D50W) injection 25 g 25 g intravenous Q15 Min PRN Huey Hurtado, MD ergocalciferol (DRISDOL) capsule 50,000 Units 50,000 [...] Culture And Stain AFB Culture And Stain [facility] Non-Customer Logistics Manager Cytology [facility] Non-Customer Logistics Manager Cytology DIFFERENTIAL, BODY FLUID DIFFERENTIAL, BODY FLUID Body Fluid/CSF - Path Review () Body Fluid/CSF - Path Review () [facility] BONE MARROW SMEAR, ASPIRATION, AND STAIN [facility] BONE MARROW SMEAR, ASPIRATION, AND STAIN CANCELED: [...] BODY REMOVAL; Surgeon: Scott Daley MD; Location: [facility]; Service: Gastroenterology; Laterality: N/A; Allergies: No Known [...] Normal range of motion. Integumentary: Warm, Dry, White[place]. Neurologic: No obvious focal deficit Psychiatric: Cooperative, Appropriate mood & affect. Labs, Imaging, and Other Studies: Echo Results (last 7 days) Procedure Component Value Units Date/Time ECHO COMPLETE (DOPPLER / COLOR) W OR WO CONTRAST [[id number]] Collected: 11/30/24 0725 Order Status: Completed Updated: 11/30/24 1046 Narrative: TRANSTHORACIC ECHOCARDIOGRAPHY REPORT Demographics Patient Name: RIN JONES : 1960 Age: 64 year(s) Corporate ID Number: [id number] Gender Female Electoral Officer: Giovanna Rock Height: 67 inches [facility] Referring Physician: HUEY HURTADO Weight: 225 pounds [...] 1.35 m/s E/A ratio: 0.97 m/s Volume .99 LV length: 8.51 cm ml Volume vxneerbv50.96 ml LVOT diameter: 1.79 cm Normal sized [...] Valve TR velocity: 2.51 m/s TR gradient: 25.46032 mmHg Estimated RAP: 3 mmHg RVSP: 28.12 [...] (DOPPLER / COLOR) W OR WO CONTRAST [[id number]] Collected: 11/30/24724 Order Status: Completed Updated: 11/30/241045 Narrative: TRANSTHORACIC ECHOCARDIOGRAPHY REPORT Demographics Patient Name: RIN JONES : 1960 Age: 64 year(s) Corporate ID Number: [id number] Gender Female Electoral Officer: Giovanna Rock Height: 67 inches [facility] Referring Physician: HUEY HURTADO Weight: 225 pounds Interpreting JESSICA RAYMOND MD BMI: 35.24 kg/m^2 Physician: Date of Service: 11/30/2024 Blood Pressure: 118/59 mmHg Room Number: 579 Type of Study: TTE procedure: ECHO COMPLETE (DOPPLER / COLOR) W OR WO CONTRAST. Patient Status: Routine IP Study Location: [facility] Quality: Adequate visualization History/Tech Notes: Indication: [...] 1.35 m/s E/A ratio: 0.97 m/s Volume .99 LV length: 8.51 cm ml Volume keeaukea78.96 ml LVOT diameter: 1.79 cm Normal sized [...] Valve TR velocity: 2.51 m/s TR gradient: 25.34832 mmHg Estimated RAP: 3 mmHg RVSP: 28.12 [...] imaging. Assessment and Plan: *Paroxysmal Atrial Fib [id number] of 3 to 4 also have some [...] Patient cannot take anticoagulation for A-fib despite [id number] because of multiple issue including GI bleeding [...] 12/13/2024 8:25 AM EDTSummary: MANGO Updates - [facility] Pending Discharge Plan Progress Note Case Management received call from Vesna Gibson (phone # [phone]) cost coordinator with [facility] requesting notes from weekend. MANGO faxed weekend notes via [place] to Ez Gibson to fax # [phone]. Patient will require a precert if a bed is offered. Update, 12/13, 3:07 pm Patient and family's first choice, [facility] have denied patient due to not being able to meet and accommodate patient's clinical needs. No information regarding how. Update 3:45 pm - Per facility's admission manager sterile, patient is requiring BiPaP 'too much' (24/ per facility words), requiring a paracentesis too often, no activity tolerance, therefore patient is not rehab appropriate. MANGO asked [facility] to review referral to inquire about potential [...] purposes. CM has updated treatment team via Hover 3D chat that are signed into patient's chart on 12/13 - QUIQUE, bedside RN, bedside TEACHER OF FAMILY AND CONSUMER SCIENCE, PT, and OT. Patient has other offers from the following: [facility] and [facility], [place]; offered bed prior to [place]; follow up with [facility] via [place], [place] KENNEY Zaragoza * Norm Cameron MD - 12/12/2024 8:47 PM EDT EP progress note Patient Name: Mary Coronel Admission Date: 11/30/2024 Primary Care Provider: [facility] Find-a-Doc Chief Complaint/Reason for Consult: No chief complaint on file. History of Present Illness: Mary Coronel is a 64 y.o. female, admitted on: 11/30/2024 1:43 AM. presented to [facility] with swollen abdomen, abdominal discomfort and bilateral lower extremity pitting edema. Patient's BUN/creatinine elevated, and patient subsequently transferred to [facility] for hepatorenal syndrome evaluation. Admits to [...] Culture And Stain AFB Culture And Stain [facility] Non-Customer Logistics Manager Cytology [facility] Non-Customer Logistics Manager Cytology DIFFERENTIAL, BODY FLUID DIFFERENTIAL, BODY FLUID Body Fluid/CSF - Path Review () Body Fluid/CSF - Path Review () [facility] BONE MARROW SMEAR, ASPIRATION, AND STAIN [facility] BONE MARROW SMEAR, ASPIRATION, AND STAIN CANCELED: [...] BODY REMOVAL; Surgeon: Scott Daley MD; Location: [facility]; Service: Gastroenterology; Laterality: N/A; Allergies: No Known [...] Normal range of motion. Integumentary: Warm, Dry, [place]. Neurologic: No obvious focal deficit Psychiatric: Cooperative, Appropriate mood & affect. Labs, Imaging, and Other Studies: Echo Results (last 7 days) Procedure Component Value Units Date/Time ECHO COMPLETE (DOPPLER / COLOR) W OR WO CONTRAST [[id number]] Collected: 11/30/24724 Order Status: Completed Updated: 11/30/241045 Narrative: TRANSTHORACIC ECHOCARDIOGRAPHY REPORT Demographics Patient Name: RIN JONES : 1960 Age: 64 year(s) Corporate ID Number: [id number] Gender Female Electoral Officer: Giovanna Rock Height: 67 inches [facility] Referring Physician: HUEY HURTADO Weight: 225 pounds Interpreting JESSICA RAYMOND MD BMI: 35.24 kg/m^2 Physician: Date of Service: 11/30/2024 Blood Pressure: 118/59 mmHg Room Number: 579 Type of Study: TTE procedure: ECHO COMPLETE (DOPPLER / COLOR) W OR WO CONTRAST. Patient Status: Routine IP Study Location: [facility] Quality: Adequate visualization History/Tech Notes: Indication: [...] 1.35 m/s E/A ratio: 0.97 m/s Volume klgvutslt245.99 LV length: 8.51 cm ml Volume hqjebvuh43.96 ml LVOT diameter: 1.79 cm Normal sized [...] Valve TR velocity: 2.51 m/s TR gradient: 25.61658 mmHg Estimated RAP: 3 mmHg RVSP: 28.12 [...] including malabsorption, drug interactions, and alcoholic hepatitis. [employer] has become aware of sulfasalazine and sulfapyridine [...] (DOPPLER / COLOR) W OR WO CONTRAST [[id number]] Collected: 11/30/2425 Order Status: Completed Updated: 11/30/24 104 Narrative: TRANSTHORACIC ECHOCARDIOGRAPHY REPORT Demographics Patient Name: RIN JONES : 1960 Age: 64 year(s) Corporate ID Number: [id number] Gender Female Electoral Officer: Giovanna Rock Height: 67 inches [facility] Referring Physician: HUEY HURTADO Weight: 225 pounds [...] 1.35 m/s E/A ratio: 0.97 m/s Volume nnwzxalmc098.99 LV length: 8.51 cm ml Volume jvmanxsj02.96 ml LVOT diameter: 1.79 cm Normal sized [...] Valve TR velocity: 2.51 m/s TR gradient: 25.73148 mmHg Estimated RAP: 3 mmHg RVSP: 28.12 [...] imaging. Assessment and Plan: *Paroxysmal Atrial Fib [id number] of 3 to 4 also have some [...] Patient cannot take anticoagulation for A-fib despite [id number] because of multiple issue including GI bleeding [...] renal function - No emergent need of KENNEL KEEPER - Monitor H/H and transfuse for Hgb [...] Hematology/oncology following. Acute hypoxemic/hypercapnic respiratory failure - [employer] to be due to pulmonary edema from [...] 10 mg 10 mg intravenous Q6H PRN Huye Hurtado MD 10 mg at 431 insulin lispro (HUMALOG, ADMELOG) injection 0-18 Units 0-18 Units subcutaneous 4x Daily MARIAN Hurtado MD 3 Units at 12/11/24 0648 lactulose (CHRONULAC) 10 gram/15 mL solution 10 g 10 g oral BID Timothy Bai MD 10 g at 12/10/242105 [Held by provider] melatonin tablet 3 mg [...] Hematology/oncology following. Acute hypoxemic/hypercapnic respiratory failure - [employer] to be due to pulmonary edema from [...] SNF/Rehab, etc): TBD Signed: Brad Coffman PA-C [facility] Hospitalist * Hema Cervantes MD - [...] renal function - No emergent need of KENNEL KEEPER - Monitor H/H and transfuse for Hgb [...] BODY REMOVAL; Surgeon: Scott Daley MD; Location: [facility]; Service: Gastroenterology; Laterality: N/A; General Visit type: Treatment Approved by: Nurse Metzger Patient disposition upon entry: Patient verified by name, Patient verified by date of , Supinein bed Co-treated by: SIMULATION SOFTWARE ENGINEER Assisted by: veterinarian assistant Precautions Weightbearing status: No restrictions Precautions: [...] had BM and pt returned to EOB. OPERATIONS PROJECT MANAGER entered room to assist. Pt was able [...] Mcgill this morning via phone. Family prefers [facility] ([facility] [place] [facility]), as they live 10-20minutes away from facility. JOSE MANUEL/MANGO contacted cost coordinator via text, number provided by family, phone # [phone]. farhan [place], fax # [phone]. CM sent updated referral. Patient will need precert. Family, sister Jojo will be able to transport at discharge, but will been 24 hour notice to be able to transport to facility. CM plan is SNF/rehab possible early next week pending medical readiness, and precert. Update 3:27 pm - updated PT and OT notes faxed to [facility] KENNEY Zaragoza * Hema [...] renal function - No emergent need of KENNEL KEEPER - Monitor H/H and transfuse for Hgb [...] POC-GLUCOSE 162 (H) 70 - 110 mg/dL [employer] [id number] ABG Status: Abnormal Collection Time: 12/10/24 6:42 [...] ARTERIAL 8.5 (L) 12.0 - 18.0 g/dL [facility] COLLECTION SITE Left Radial Arterial Puncture Yes [...] POC-GLUCOSE 195 (H) 70 - 110 mg/dL [employer] U[employer]rer [id number] Glucose, Nova Meter Status: Abnormal Collection Time: 12/10/24 6:32 PM Result Value Ref Range POC-GLUCOSE 235 (H) 70 - 110 mg/dL [employer] U[employer]rer [id number] Glucose, Nova Meter Status: Abnormal Collection Time: 12/10/24 7:38 PM Result Value Ref Range POC-GLUCOSE 201 (H) 70 - 110 mg/dL [employer] [id number] US paracentesis Narrative: ULTRASOUND-GUIDED PARACENTESIS HISTORY: Ascites. ATTENDING PHYSICIAN: Dr. Haseeb Gil PHYSICIAN UM NURSE: Sujit Blackman PA-C FINDINGS: After informed consent [...] Pending blood gas improvement And more awake germination testing manager working discharge plan, likely dc 1-2 [...] admitted on: 11/30/2024 1:43 AM. presented to [facility] with swollen abdomen, abdominal discomfort and bilateral lower extremity pitting edema. Patient's BUN/creatinine elevated, and patient subsequently transferred to [facility] for hepatorenal syndrome evaluation. Admits to [...] 200 mg oral Daily 200 mg at 05/15/25 0920 amoxicillin-clavulanate 1 tablet oral BID 1 tablet at 12/09/242108 atorvastatin 20 mg oral Every Night 20 mg at 12/09/242108 bumetanide 1 mg oral TID 1 mg at 12/09/242109 ergocalciferol 50,000 Units oral Q7 Days 50,000 Units at 12/07/24 144 gabapentin 100 mg oral TID 100 mg at 12/09/242108 insulin lispro 0-18 Units subcutaneous 4x Daily AC 3 Units at 12/10/2442 lactulose 10 g oral BID 10 g at 12/09/242108 pantoprazole 40 mg oral BID 40 mg at 12/09/242108 rifAXIMin 550 mg oral BID 550 mg at 12/09/242108 spironolactone 12.5 mg oral Daily 12.5 mg at 12/09/24918 Current Infusions: Current Facility-Administered Medications Medication Dose [...] Daily Deysi Foss MD 200 mg at 12/09/24919 ammonium lactate (LAC-HYDRIN) lotion 12% topical PRN [...] Timothy Bai MD 50,000 Units at 12/07/24 144 gabapentin (NEURONTIN) capsule 100 mg 100 mg [...] 0-18 Units subcutaneous 4x Daily AC Huey Hutrado MD 3 Units at 12/10/24 0642 lactulose (CHRONULAC) 10 gram/15 mL solution 10 g 10 g oral BID Timothy Bai MD 10 g at 12/09/242108 [Held by provider] melatonin tablet 3 mg 3 mg oral Every Night PRN Huey Hurtado MD ondansetron (ZOFRAN-ODT) disintegrating tablet 4 mg 4 mg oral Q8H PRN Huey Hurtaod MD Or ondansetron (ZOFRAN) injection 4 mg [...] Culture And Stain AFB Culture And Stain [facility] Non-Customer Logistics Manager Cytology [facility] Non-Customer Logistics Manager Cytology DIFFERENTIAL, BODY FLUID DIFFERENTIAL, BODY FLUID Body Fluid/CSF - Path Review () Body Fluid/CSF - Path Review () [facility] BONE MARROW SMEAR, ASPIRATION, AND STAIN [facility] BONE MARROW SMEAR, ASPIRATION, AND STAIN CANCELED: [...] BODY REMOVAL; Surgeon: Scott Daley MD; Location: [facility]; Service: Gastroenterology; Laterality: N/A; Allergies: No Known [...] Normal range of motion. Integumentary: Warm, Dry, [place]. Neurologic: No obvious focal deficit Psychiatric: Cooperative, Appropriate mood & affect. Labs, Imaging, and Other Studies: Echo Results (last 7 days) Procedure Component Value Units Date/Time ECHO COMPLETE (DOPPLER / COLOR) W OR WO CONTRAST [[id number]] Collected: 11/30/24724 Order Status: Completed Updated: 11/30/24 104 Narrative: TRANSTHORACIC ECHOCARDIOGRAPHY REPORT Demographics Patient Name: RIN JONES : 1960 Age: 64 year(s) Corporate ID Number: [id number] Gender Female Electoral Officer: Giovanna Rock Height: 67 inches [facility] Referring Physician: HUEY HURTADO Weight: 225 pounds [...] 1.35 m/s E/A ratio: 0.97 m/s Volume mstytfxnq277.99 LV length: 8.51 cm ml Volume kbiqgahx97.96 ml LVOT diameter: 1.79 cm Normal sized [...] Valve TR velocity: 2.51 m/s TR gradient: 25.85452 mmHg Estimated RAP: 3 mmHg RVSP: 28.12 [...] (DOPPLER / COLOR) W OR WO CONTRAST [[id number]] Collected: 11/30/24 0725 Order Status: Completed Updated: 11/30/24 1046 Narrative: TRANSTHORACIC ECHOCARDIOGRAPHY REPORT Demographics Patient Name: RIN JONES : 1960 Age: 64 year(s) Corporate ID Number: [id number] Gender Female Electoral Officer: Giovanna Rock Height: 67 inches [facility] Referring Physician: HUEY HURTADO Weight: 225 pounds [...] 1.35 m/s E/A ratio: 0.97 m/s Volume odtfdaflo044.99 LV length: 8.51 cm ml Volume khsulowq39.96 ml LVOT diameter: 1.79 cm Normal sized [...] Valve TR velocity: 2.51 m/s TR gradient: 25.90899 mmHg Estimated RAP: 3 mmHg RVSP: 28.12 [...] imaging. Assessment and Plan: *Paroxysmal Atrial Fib [id number] of 3 to 4 also have some [...] Patient cannot take anticoagulation for A-fib despite [id number] because of multiple issue including GI bleeding [...] history as below. She initially presented to [facility] with swollen abdomen, abdominal discomfort, and bilateral lower extremity pain. Her creatinine was elevated and as a result, she was transferred to [facility] for he patorenal syndrome. Upon arrival [...] BODY REMOVAL; Surgeon: Scott Daley MD; Location: [facility]; Service: Gastroenterology; Laterality: N/A; Allergies: No Known [...] ARTERIAL 8.7 (L) 12.0 - 18.0 g/dL [facility] COLLECTION SITE Left Radial Arterial Puncture Yes Blood Gas O2 Delivery Device Cannula Oxygen Flow Rate 4 Blood Gas PT Temperature C 37.0 Sen's Test Acceptable Critical Values Notification Critical Blood gas called to DAYANARA MILES . [place] [id number] and confirmed on12/09/2024 06:51 ABG Number of Draw Attempts 1 FIO2 Blood Gas Temperature Corrected Results No No Glucose, Nova Meter Status: Abnormal Collection Time: 12/09/24 11:17 AM Result Value Ref Range POC-GLUCOSE 173 (H) 70 - 110 mg/dL [employer] [id number] Glucose, Nova Meter Status: Abnormal Collection Time: 12/09/24 4:23 PM Result Value Ref Range POC-GLUCOSE 173 (H) 70 - 110 mg/dL [employer] [id number] Glucose, Nova Meter Status: Abnormal Collection Time: 12/09/24 7:30 PM Result Value Ref Range POC-GLUCOSE 158 (H) 70 - 110 mg/dL [employer] [id number] Glucose, Nova Meter Status: Abnormal Collection Time: 12/10/24 5:52 AM Result Value Ref Range POC-GLUCOSE 162 (H) 70 - 110 mg/dL [employer] [id number] Radiology Radiology Results (last day) Procedure Component Value Units Date/Time XR chest AP portable [[id number]] Collected: 12/09/24 0844 Order Status: Completed Updated: [...] Fungus Culture W/ROSA MARIA Or Nimisha Ink [[id number]] Collected: 11/30/24 1603 Order Status: Completed Specimen: Peritoneal Fluid from Body Fluid Updated: 12/07/24 1700 Result No fungus isolated at 1 week. ROSA MARIA Prep No fungal elements seen Narrative: Specimen Description: peritoneal fluid AFB Culture And Stain [[id number]] Collected: 11/30/24 1603 Order Status: Completed Specimen: Peritoneal Fluid from Body Fluid Updated: 12/07/24 1700 Result No Acid Fast Bacilli isolated at 1 week. AFB Smear No acid fast bacilli seen Narrative: Specimen Description: peritoneal fluid Anaerobic Culture [[id number]] Collected: 11/30/24 1603 Order Status: Completed Specimen: Peritoneal Fluid from Body Fluid Updated: 12/05/24 0634 Result No Anaerobic growth Narrative: Specimen Description: peritoneal fluid Blood Culture [[id number]] Collected: 11/30/24 0340 Order Status: Completed Specimen: Blood from Arm, Left Updated: 12/05/24 0501 Result No growth in 5 days Blood Culture [[id number]] Collected: 11/30/24 0342 Order Status: Completed Specimen: Blood from Arm, Right Updated: 12/05/24 0501 Result No growth in 5 days Body Fluid Culture + Gram Stain [[id number]] Collected: 11/30/24 1603 Order Status: Completed Specimen: Peritoneal Fluid from Body Fluid Updated: 12/03/24 0907 Result No growth Gram Stain Result No organisms seen No cells seen Narrative: Specimen Description: peritoneal fluid Body Fluid/CSF - Path Review () [[id number]] Collected: 11/30/24 160 Order Status: Completed Specimen: [...] to continue with albumin/diuretics no indication for KENNEL KEEPER No significant pleural effusion for thoracentesis If needed repeat chest x-ray. Otherwise continue diuresis Pulmonary continue to follow Case discussed during round. I have personally evaluated the patient and performed a iitb-ag-gdbf diagnostic evaluation on this patient; I have reviewed history, performed physical examination, reviewed laboratory studies. , andreviewed images independent of radiologist. I have actively directed the medical care, formulated assessemnt and plan of care. Patient requires a high complexity of decision making for assessment. 34 minutes critical care time was spent. Voice manager relocation technology (CamStent) is used for dictation of this note and sound-alike words might be erroneously placed despite reviewing the note for accuracy.Errors in dictation may reflect use of voice recognition software and not all errors in manager relocation may have been detectedprior to signing * Tori Kamara RN - 12/09/2024 4:00 PM EDT MD Mcfadden approved patient to go to [place] Paracentesis unmonitored. * Alvina Barragan, PT - 12/09/2024 2:22 PM EDT Images from [...] POC-GLUCOSE 159 (H) 70 - 110 mg/dL [employer] [id number] Glucose, Nova Meter Status: Abnormal Collection Time: 12/08/24 8:08 PM Result Value Ref Range POC-GLUCOSE 172 (H) 70 - 110 mg/dL [employer]ol[employer] [id number] Basic Metabolic Panel Status: Abnormal Collection Time: [...] Osmolality Calc 320.0 mOsm/kg CBC - [facility] Status: Abnormal Collection Time: 12/09/24 3:38 [...] POC-GLUCOSE 148 (H) 70 - 110 mg/dL [employer] U[employer]ol[employer]rer [id number] ABG Status: Abnormal Collection Time: 12/09/24 6:37 [...] ARTERIAL 8.7 (L) 12.0 - 18.0 g/dL [facility] COLLECTION SITE Left Radial Arterial Puncture Yes Blood Gas O2 Delivery Device Cannula Oxygen Flow Rate 4 Blood Gas PT Temperature C 37.0 Sen's Test Acceptable Critical Values Notification Critical Blood gas called to DAYANARA MILES . [place] [id number] and confirmed on12/09/2024 06:51 ABG Number of Draw Attempts 1 FIO2 Blood Gas Temperature Corrected Results No No Glucose, Nova Meter Status: Abnormal Collection Time: 12/09/24 11:17 AM Result Value Ref Range POC-GLUCOSE 173 (H) 70 - 110 mg/dL [employer] [id number] XR chest AP portable Narrative: PORTABLE CHEST. [...] Pending blood gas improvement And more awake germination testing manager working discharge plan * Tori Kamara [...] Ext: +++ Pedal edema , no cyanosis TRIMMER SAWYER: Alert, No focal deficit noted grossly Psy: Cooperative Labs: Results for orders placed or performed during the hospital encounter of 11/30/24 (from the past 24 hours) Glucose, Nova Meter Status: Abnormal Collection Time: 12/08/24 10:57 AM Result Value Ref Range POC-GLUCOSE 191 (H) 70 - 110 mg/dL [employer]ol[employer]rer [id number] Glucose, Nova Meter Status: Abnormal Collection Time: 12/08/24 3:34 PM Result Value Ref Range POC-GLUCOSE 159 (H) 70 - 110 mg/dL [employer] U[employer]ol[employer]rer [id number] Glucose, Nova Meter Status: Abnormal Collection Time: 12/08/24 8:08 PM Result Value Ref Range POC-GLUCOSE 172 (H) 70 - 110 mg/dL [employer]ol[employer] [id number] Basic Metabolic Panel Status: Abnormal Collection Time: [...] Osmolality Calc 320.0 mOsm/kg CBC - Hemogram (-[facility]) Status: Abnormal Collection Time: 12/09/24 3:38 AM [...] POC-GLUCOSE 148 (H) 70 - 110 mg/dL [employer] Uphol[employer]rer [id number] ABG Status: Abnormal Collection Time: 12/09/24 6:37 [...] ARTERIAL 8.7 (L) 12.0 - 18.0 g/dL [facility] COLLECTION SITE Left Radial Arterial Puncture Yes Blood Gas O2 Delivery Device Cannula Oxygen Flow Rate 4 Blood Gas PT Temperature C 37.0 Sen's Test Acceptable Critical Values Notification Critical Blood gas called to DAYANARA MILES . [place] [id number] and confirmed on12/09/2024 06:51 ABG Number of [...] Intake/Output Summary (Last 24 hours) at 12/09/2024 0949 Last data filed at 12/09/2024 0300 Gross [...] renal function - No emergent need of KENNEL KEEPER - Monitor H/H and transfuse for Hgb less than 7.0 Discussed with patient Follow up with [facility] in 1-2 weeks with renal function panel * KENNEY Zaragoza - 12/09/2024 8:04 AM EDTSummary: Referral Pending Discharge Plan Progress Note Family/Sister prefers [facility]. SW/CM sent referral this AM. Currently pending. [facility] [address] KENNEY Zaragoza * Blanka Malagon MD - 12/09/2024 6:30 AM EDT Images from the original note were not included. PULMONARY AND CRITICAL CARE Consult Note Date of Service: 12/09/2024 HPI: This is a 64 y.o. year old female with past medical history as below. She initially presented to [facility] with swollen abdomen, abdominal discomfort, and bilateral lower extremity pain. Her creatinine was elevated and as a result, she was transferred to [facility] for he patorenal syndrome. Upon arrival [...] BODY REMOVAL; Surgeon: Scott Daley MD; Location: [facility]; Service: Gastroenterology; Laterality: N/A; Allergies: No Known [...] ARTERIAL 8.8 (L) 12.0 - 18.0 g/dL [facility] COLLECTION SITE Right Brachial Arterial Puncture Yes Blood Gas O2 Delivery Device Cannula Oxygen Flow Rate 4 Blood Gas PT Temperature C 37.0 Sen's Test Not Applicable Critical Values Notification Critical Blood gas called to KNOWN CONDITION . Results acknowledged/read back to [id number] and confirmed on 12/08/2024 07:30 ABG Number of Draw Attempts 1 FIO2 Blood Gas Temperature Corrected Results No No Glucose, Nova Meter Status: Abnormal Collection Time: 12/08/24 10:57 AM Result Value Ref Range POC-GLUCOSE 191 (H) 70 - 110 mg/dL [employer] Upholsterer [id number] Glucose, Nova Meter Status: Abnormal Collection Time: 12/08/24 3:34 PM Result Value Ref Range POC-GLUCOSE 159 (H) 70 - 110 mg/dL [employer]otive Upholsterer [id number] Glucose, Nova Meter Status: Abnormal Collection Time: 12/08/24 8:08 PM Result Value Ref Range POC-GLUCOSE 172 (H) 70 - 110 mg/dL [employer] Upholsterer [id number] Basic Metabolic Panel Status: Abnormal Collection Time: [...] POC-GLUCOSE 148 (H) 70 - 110 mg/dL [employer] Uphol[employer]rer [id number] Radiology Radiology Results (last day) No results found for the last 24 hours. Microbiology: Microbiology Results (last 7 days) Procedure Component Value Units Date/Time Fungus Culture W/ROSA MARIA Or Nimisha Ink [[id number]] Collected: 11/30/24 160 Order Status: Completed Specimen: Peritoneal Fluid from Body Fluid Updated: 12/07/24 170 Result No fungus isolated at 1 week. ROSA MARIA Prep No fungal elements seen Narrative: Specimen Description: peritoneal fluid AFB Culture And Stain [[id number]] Collected: 11/30/24 160 Order Status: Completed Specimen: Peritoneal Fluid from Body Fluid Updated: 12/07/24 1700 Result No Acid Fast Bacilli isolated at 1 week. AFB Smear No acid fast bacilli seen Narrative: Specimen Description: peritoneal fluid Anaerobic Culture [[id number]] Collected: 11/30/24 1603 Order Status: Completed Specimen: Peritoneal Fluid from Body Fluid Updated: 12/05/24 0634 Result No Anaerobic growth Narrative: Specimen Description: peritoneal fluid Blood Culture [[id number]] Collected: 11/30/24 0340 Order Status: Completed Specimen: Blood from Arm, Left Updated: 12/05/24 0501 Result No growth in 5 days Blood Culture [[id number]] Collected: 11/30/24 0342 Order Status: Completed Specimen: Blood from Arm, Right Updated: 12/05/24 0501 Result No growth in 5 days Body Fluid Culture + Gram Stain [[id number]] Collected: 11/30/24 1603 Order Status: Completed Specimen: Peritoneal Fluid from Body Fluid Updated: 12/03/24 0907 Result No growth Gram Stain Result No organisms seen No cells seen Narrative: Specimen Description: peritoneal fluid Body Fluid/CSF - Path Review () [[id number]] Collected: 11/30/24 1603 Order Status: Completed Specimen: [...] to continue with albumin/diuretics no indication for KENNEL KEEPER No significant pleural effusion for thoracentesis If needed repeat chest x-ray. Otherwise continue diuresis Pulmonary twill follow . If ABG not improving ,or worsening mental status recommended ICU Case discussed during round. I have personally evaluated the patient and performed a chky-iy-zgkb diagnostic evaluation on this patient; I have reviewed history, performed physical examination, reviewed laboratory studies. , andreviewed images independent of radiologist. I have actively directed the medical care, formulated assessemnt and plan of care. Patient requires a high complexity of decision making for assessment. 34 minutes critical care time was spent. Voice manager relocation technology (CamStent) is used for dictation of this note and sound-alike words might be erroneously placed despite reviewing the note for accuracy.Errors in dictation may reflect use of voice recognition software and not all errors in manager relocation may have been detectedprior to signing * [...] complaints of severe back pain. Medicated per sep with no relief from back pain, notified md and orders obtained. Rings out as needed. Blas was removed this shift. * KENNEY Zaragoza - 12/08/2024 1:33 PM EDTSummary: Pending Medical Readiness for SNF - Bed Offer with [facility] Discharge Plan Progress Note JOSE MANUEL/MANGO updated Rama T with [facility] regarding patient's ICU transfer cancellation.CM to follow up with Rama on 12/09 with updated PT/OT notes, MD progress notes of patients care, BiPaP/RT plan. [facility] is still offering bed for patient. [facility] be needed, [facility] SW/CM has attempted to call patient's sister, Jojo Dominguez x3 times, at # listed, , however, CM is experiencing phone issues and unable to call out. CM has informed bedside RN and TEACHER OF FAMILY AND CONSUMER SCIENCE via [employer]. KENNEY Zaragoza * KENNEY Zaragoza - 12/08/2024 1:29 PM EDTSummary: CM Assessment Care Coordination Initial Assessment Patient's readmit score is low at 12%. CM plan was to DC home/independent at baseline or with family/sister assistance. Sister, Jojo, stated she cannot care for patient if patient was to come homewith her, and patient needed rehab. CM sent referrals, patient had bed offers, [facility] offered bed first and [...] (P) Independent Current Lines, Tubes: (P) 3L/min IN Special/Community Services: (P) Transport, discharge, Home, assistance Transition Needs Expected Discharge Date: Off Track ILSALOPetros TBD - 12/10-12/12 Home or Post Acute Services Needed: (P) Post acute facilities (Rehab/SNF/etc) Does the patient have the ability to fill and receive their discharge medications: (P) Yes Discharge plan discussed: (P) The discharge plan was discussed with patient sales representative raw fibers. Discharge Barriers: (P) Test(s) Pending, Activity Type of Assistive Devices Needed for Discharge: (P) None Patient Discharge Goal: (P) Inpatient Rehab Facility, Custodial Facility Mandated Reporting: (P) Not applicable PT/OT/WORKFORCE STAFFING ADVISOR Recommendations PT Recommendations: Pending Hospital Stay OT Recommendations: Pending Hospital Stay WORKFORCE STAFFING ADVISOR Recommendations: NA 12/08/24 1327 Home Environment Type [...] Assistive Devices Walker;Commode Current Lines, Tubes 3L/min [place] Special/Community Services Transport, discharge;Home, assistance Transition Needs Home or Post Acute Services Post acute facilities (Rehab/SNF/etc) Type of Post Acute Facility Services [facility];Rehab Does the patient have the ability to fill and receive their discharge medications? Yes Discharge Plan Discussed The discharge plan was discussed with patient sales representative raw fibers. Discharge Plan Outcome Patient/family sales representative raw fibers agrees with the discharge plan Discharge Barriers Test(s) Pending;Activity Type of Assistive Devices Needed for Discharge None Patient Discharge Goal Inpatient Rehab Facility;Custodial Facility Mandated Reporting Not applicable KENNEY Zaragoza * Deysi Foss MD - 12/08/2024 11:29 AM EDT EP progress note Patient Name: Mary Coronel Admission Date: 11/30/2024 Primary Care Provider: [facility] Find-a-Doc Chief Complaint/Reason for Consult: No chief complaint on file. History of Present Illness: Mary Coronel is a 64 y.o. female, admitted on: 11/30/2024 1:43 AM. presented to [facility] with swollen abdomen, abdominal discomfort and bilateral lower extremity pitting edema. Patient's BUN/creatinine elevated, and patient subsequently transferred to [facility] for hepatorenal syndrome evaluation. Admits to [...] Timothy Bai MD 50,000 Units at 12/07/24 144 gabapentin (NEURONTIN) capsule 100 mg 100 mg oral TID Blanka Malagon MD 100 mg at 12/08/24 09 glucagon injection 1 mg 1 mg intraMUSCULAR Q15 Min PRN Huey Hurtado MD glucose chew tab 16 g 16 g oral Q15 Min PRN Huey Hurtado MD hydrALAZINE (APRESOLINE) injection 10 mg 10 mg intravenous Q6H PRN Huey Hurtado MD 10 mg at 030 insulin lispro (HUMALOG, ADMELOG) injection 0-18 Units [...] 12.5 mg oral Daily Hill Boo MD [facility] med No current facility-administered medications on file prior [...] Culture And Stain AFB Culture And Stain [facility] Non-Customer Logistics Manager Cytology [facility] Non-Customer Logistics Manager Cytology DIFFERENTIAL, BODY FLUID DIFFERENTIAL, BODY FLUID Body Fluid/CSF - Path Review () Body Fluid/CSF - Path Review () [facility] BONE MARROW SMEAR, ASPIRATION, AND STAIN [facility] BONE MARROW SMEAR, ASPIRATION, AND STAIN CANCELED: [...] BODY REMOVAL; Surgeon: Scott Daley MD; Location: [facility]; Service: Gastroenterology; Laterality: N/A; Allergies: No Known [...] Normal range of motion. Integumentary: Warm, Dry, [place]. Neurologic: No obvious focal deficit Psychiatric: Cooperative, Appropriate mood & affect. Labs, Imaging, and Other Studies: Echo Results (last 7 days) Procedure Component Value Units Date/Time ECHO COMPLETE (DOPPLER / COLOR) W OR WO CONTRAST [[id number]] Collected: 11/30/2498 Order Status: Completed Updated: 11/30/24 1046 Narrative: TRANSTHORACIC ECHOCARDIOGRAPHY REPORT Demographics Patient Name: RIN JONES : 1960 Age: 64 year(s) Corporate ID Number: [id number] Gender Female Electoral Officer: Giovanna Rock Height: 67 inches [facility] Referring Physician: HUEY HURTADO Weight: 225 pounds [...] 1.35 m/s E/A ratio: 0.97 m/s Volume bobrmamun188.99 LV length: 8.51 cm ml Volume .96 [...] Valve TR velocity: 2.51 m/s TR gradient: 25.03185 mmHg Estimated RAP: 3 mmHg RVSP: 28.12 [...] (DOPPLER / COLOR) W OR WO CONTRAST [[id number]] Collected: 11/30/2479 Order Status: Completed Updated: 11/30/24 104 Narrative: TRANSTHORACIC ECHOCARDIOGRAPHY REPORT Demographics Patient Name: RIN JONES : 1960 Age: 64 year(s) Corporate ID Number: [id number] Gender Female Electoral Officer: Giovanna Rock Height: 67 inches [facility] Referring Physician: HUEY HURTADO Weight: 225 pounds Interpreting JESSICA RAYMOND MD BMI: 35.24 kg/m^2 Physician: Date of Service: 11/30/2024 Blood Pressure: 118/59 mmHg Room Number: 579 Type of Study: TTE procedure: ECHO COMPLETE (DOPPLER / COLOR) W OR WO CONTRAST. Patient Status: Routine IP Study Location: [facility] Quality: Adequate visualization History/Tech Notes: Indication: [...] 1.35 m/s E/A ratio: 0.97 m/s Volume avedzemnt673.99 LV length: 8.51 cm ml Volume smujujkw46.96 ml LVOT diameter: 1.79 cm Normal sized [...] Valve TR velocity: 2.51 m/s TR gradient: 25.37011 mmHg Estimated RAP: 3 mmHg RVSP: 28.12 [...] imaging. Assessment and Plan: *Paroxysmal Atrial Fib [id number] of 3 to 4 also have some [...] Patient cannot take anticoagulation for A-fib despite [id number] because of multiple issue including GI bleeding [...] BODY REMOVAL; Surgeon: Scott Daley MD; Location: [facility]; Service: Gastroenterology; Laterality: N/A; General Visit type: [...] 12.0 - 18.0 g/dL PaO2/FIO2 calculated 203.0 [facility] COLLECTION SITE Right Radial Arterial Puncture Yes Blood Gas PT Temperature C 37.0 Sen's Test Acceptable Critical Values Notification Critical Blood gas called to TRAY LORENZ RN . [place] [id number] and confirmed on 12/07/2024 10:51 ABG Number of Draw Attempts 1 FIO2 21.0 Blood Gas Temperature Corrected Results No No Glucose, Nova Meter Status: Abnormal Collection Time: 12/07/24 10:54 AM Result Value Ref Range POC-GLUCOSE 146 (H) 70 - 110 mg/dL [employer] Uphol[employer] [id number] Blood gas, arterial Status: Abnormal Collection Time: [...] ARTERIAL 8.9 (L) 12.0 - 18.0 g/dL [facility] COLLECTION SITE Right Radial Arterial Puncture Yes Blood Gas O2 Delivery Device Cannula Oxygen Flow Rate 2 Blood Gas PT Temperature C 37.0 Sen's Test Unacceptable Vent Mode Other Critical Values Notification Critical Blood gas called to DR MALAGON . [place] [id number] and confirmed on 12/07/2024 14:14 ABG Number of Draw Attempts 1 Performed by: WIL FIO2 Blood Gas Temperature Corrected Results No No Glucose, Nova Meter Status: Abnormal Collection Time: 12/07/24 3:39 PM Result Value Ref Range POC-GLUCOSE 159 (H) 70 - 110 mg/dL [employer] Uphol[employer]rer [id number] ABG Status: Abnormal Collection Time: 12/07/24 4:21 [...] 12.0 - 18.0 g/dL PaO2/FIO2 calculated 359.0 [facility] [facility] COLLECTION SITE Right Brachial Arterial Puncture Yes Blood Gas O2 Delivery Device NIV Blood Gas PT Temperature C 37.0 Sen's Test Not Applicable Critical Values Notification Critical Blood gas called to SEB LORENZ RN . Results acknowledged/read back to [id number] and confirmed on 12/07/2024 16:42 ABG Number of Draw Attempts 2 Set Rate 16.0 IPAP 10 EPAP 6 FIO2 50.0 Blood Gas Temperature Corrected Results No No Glucose, Nova Meter Status: Abnormal Collection Time: 12/07/24 7:54 PM Result Value Ref Range POC-GLUCOSE 164 (H) 70 - 110 mg/dL [employer] [id number] Basic Metabolic Panel Status: Abnormal Collection Time: [...] Osmolality Calc 322.3 mOsm/kg CBC - Hemogram (-BK) Status: Abnormal Collection Time: 12/08/24 4:10 AM [...] POC-GLUCOSE 136 (H) 70 - 110 mg/dL [employer] [id number] Blood gas, arterial Status: Abnormal Collection Time: [...] ARTERIAL 8.8 (L) 12.0 - 18.0 g/dL [facility] COLLECTION SITE Right Brachial Arterial Puncture Yes Blood Gas O2 Delivery Device Cannula Oxygen Flow Rate 4 Blood Gas PT Temperature C 37.0 Sen's Test Not Applicable Critical Values Notification Critical Blood gas called to KNOWN CONDITION . Results acknowledged/read back to [id number] and confirmed on 12/08/2024 07:30 ABG Number [...] Pending blood gas improvement And more awake germination testing manager working discharge plan * Hill Boo [...] Ext: +++ Pedal edema , no cyanosis TRIMMER SAWYER: Alert, No focal deficit noted grossly Psy: Cooperative Labs: Results for orders placed or performed during the hospital encounter of 11/30/24 (from the past 24 hours) ECG 12 lead Status: None Collection Time: 12/07/24 10:29 AM Result Value Ref Range VENTRICULAR RATE EKG/MIN 91 BPM ATRIAL RATE (MCT) 91 BPM [place] Interval 142 ms QRS-INTERVAL (MSEC) 88 ms QT Interval 376 ms QTC Interval 462 ms P [place] 39 degrees R AXIS (MCT) -3 degrees T Wave [place] 4 degrees [place] Diagnosis Normal sinus rhythm Nonspecific T wave [...] 12.0 - 18.0 g/dL PaO2/FIO2 calculated 203.0 [facility] COLLECTION SITE Right Radial Arterial Puncture Yes Blood Gas PT Temperature C 37.0 Sen's Test Acceptable Critical Values Notification Critical Blood gas called to TRAY LORENZ RN . [place] [id number] and confirmed on 12/07/2024 10:51 ABG Number of Draw Attempts 1 FIO2 21.0 Blood Gas Temperature Corrected Results No No Glucose, Nova Meter Status: Abnormal Collection Time: 12/07/24 10:54 AM Result Value Ref Range POC-GLUCOSE 146 (H) 70 - 110 mg/dL [employer] [id number] Blood gas, arterial Status: Abnormal Collection Time: [...] ARTERIAL 8.9 (L) 12.0 - 18.0 g/dL [facility] COLLECTION SITE Right Radial Arterial Puncture Yes Blood Gas O2 Delivery Device Cannula Oxygen Flow Rate 2 Blood Gas PT Temperature C 37.0 Sen's Test Unacceptable Vent Mode Other Critical Values Notification Critical Blood gas called to DR MALAGON . Results [place] [id number] and confirmed on 12/07/2024 14:14 ABG Number of Draw Attempts 1 Performed by: CD FIO2 Blood Gas Temperature Corrected Results No No Glucose, Nova Meter Status: Abnormal Collection Time: 12/07/24 3:39 PM Result Value Ref Range POC-GLUCOSE 159 (H) 70 - 110 mg/dL [employer] [id number] ABG Status: Abnormal Collection Time: 12/07/24 4:21 [...] 12.0 - 18.0 g/dL PaO2/FIO2 calculated 359.0 [facility] COLLECTION SITE Right Brachial Arterial Puncture Yes Blood Gas O2 Delivery Device NIV Blood Gas PT Temperature C 37.0 Sen's Test Not Applicable Critical Values Notification Critical Blood gas called to SEB LORENZ RN . Results acknowledged/read back to [id number] and confirmed on 12/07/2024 16:42 ABG Number of Draw Attempts 2 Set Rate 16.0 IPAP 10 EPAP 6 FIO2 50.0 Blood Gas Temperature Corrected Results No No Glucose, Nova Meter Status: Abnormal Collection Time: 12/07/24 7:54 PM Result Value Ref Range POC-GLUCOSE 164 (H) 70 - 110 mg/dL [employer] [id number] Basic Metabolic Panel Status: Abnormal Collection Time: [...] POC-GLUCOSE 136 (H) 70 - 110 mg/dL [employer] [id number] Blood gas, arterial Status: Abnormal Collection Time: [...] ARTERIAL 8.8 (L) 12.0 - 18.0 g/dL [facility] COLLECTION SITE Right Brachial Arterial Puncture Yes Blood Gas O2 Delivery Device Cannula Oxygen Flow Rate 4 Blood Gas PT Temperature C 37.0 Sen's Test Not Applicable Critical Values Notification Critical Blood gas called to KNOWN CONDITION . Results acknowledged/read back to [id number] and confirmed on 12/08/2024 07:30 ABG Number [...] renal function - No emergent need of KENNEL KEEPER - Monitor H/H and transfuse for Hgb [...] history as below. She initially presented to [facility] with swollen abdomen, abdominal discomfort, and bilateral lower extremity pain. Her creatinine was elevated and as a result, she was transferred to [facility] for he patorenal syndrome. Upon arrival [...] BODY REMOVAL; Surgeon: Scott Daley MD; Location: [facility]; Service:Gastroenterology; Laterality: N/A; Allergies: No Known Allergies SOCIAL [...] 91 BPM ATRIAL RATE (MCT) 91 BPM [place] Interval 142 ms QRS-INTERVAL (MSEC) 88 ms QT Interval 376 ms QTC Interval 462 ms P [place] 39 degrees R AXIS (MCT) -3 degrees T Wave [place] 4 degrees [place] Diagnosis Normal sinus rhythm Nonspecific T wave [...] 12.0 - 18.0 g/dL PaO2/FIO2 calculated 203.0 [facility] COLLECTION SITE Right Radial Arterial Puncture Yes Blood Gas PT Temperature C 37.0 Sen's Test Acceptable Critical Values Notification Critical Blood gas called to TRAY LORENZ RN . [place] [id number] and confirmed on 12/07/2024 10:51 ABG Number of Draw Attempts 1 FIO2 21.0 Blood Gas Temperature Corrected Results No No Glucose, Nova Meter Status: Abnormal Collection Time: 12/07/24 10:54 AM Result Value Ref Range POC-GLUCOSE 146 (H) 70 - 110 mg/dL [employer] [id number] Blood gas, arterial Status: Abnormal Collection Time: [...] ARTERIAL 8.9 (L) 12.0 - 18.0 g/dL [facility] COLLECTION SITE Right Radial Arterial Puncture Yes Blood Gas O2 Delivery Device Cannula Oxygen Flow Rate 2 Blood Gas PT Temperature C 37.0 Sen's Test Unacceptable Vent Mode Other Critical Values Notification Critical Blood gas called to DR MALAGON . [place] [id number] and confirmed on 12/07/2024 14:14 ABG Number of Draw Attempts 1 Performed by: CD FIO2 Blood Gas Temperature Corrected Results No No Glucose, Nova Meter Status: Abnormal Collection Time: 12/07/24 3:39 PM Result Value Ref Range POC-GLUCOSE 159 (H) 70 - 110 mg/dL [employer] [id number] ABG Status: Abnormal Collection Time: 12/07/24 4:21 [...] 12.0 - 18.0 g/dL PaO2/FIO2 calculated 359.0 [facility] COLLECTION SITE Right Brachial Arterial Puncture Yes Blood Gas O2 Delivery Device NIV Blood Gas PT Temperature C 37.0 Sen's Test Not Applicable Critical Values Notification Critical Blood gas called to SEB LORENZ RN . Results acknowledged/read back to [id number] and confirmed on 12/07/2024 16:42 ABG Number of Draw Attempts 2 Set Rate 16.0 IPAP 10 EPAP 6 FIO2 50.0 Blood Gas Temperature Corrected Results No No Glucose, Nova Meter Status: Abnormal Collection Time: 12/07/24 7:54 PM Result Value Ref Range POC-GLUCOSE 164 (H) 70 - 110 mg/dL [employer] [id number] Basic Metabolic Panel Status: Abnormal Collection Time: [...] Osmolality Calc 322.3 mOsm/kg CBC - Hemogram ([facility]) Status: Abnormal Collection Time: 12/08/24 4:10 AM [...] POC-GLUCOSE 136 (H) 70 - 110 mg/dL [employer] [id number] Blood gas, arterial Status: Abnormal Collection Time: [...] ARTERIAL 8.8 (L) 12.0 - 18.0 g/dL [facility] COLLECTION SITE Right Brachial Arterial Puncture Yes Blood Gas O2 Delivery Device Cannula Oxygen Flow Rate 4 Blood Gas PT Temperature C 37.0 Sen's Test Not Applicable Critical Values Notification Critical Blood gas called to KNOWN CONDITION . Results acknowledged/read back to [id number] and confirmed on 12/08/2024 07:30 ABG Number of Draw Attempts 1 FIO2 Blood Gas Temperature Corrected Results No No Radiology Radiology Results (last day) Procedure Component Value Units Date/Time XR chest AP portable [[id number]] Collected: 12/07/24 1550 Order Status: Completed Updated: [...] Fungus Culture W/ROSA MARIA Or Nimisha Ink [[id number]] Collected: 11/30/24 160 Order Status: Completed Specimen: Peritoneal Fluid from Body Fluid Updated: 12/07/24 1700 Result No fungus isolated at 1 week. ROSA MARIA Prep No fungal elements seen Narrative: Specimen Description: peritoneal fluid AFB Culture And Stain [[id number]] Collected: 11/30/24 160 Order Status: Completed Specimen: Peritoneal Fluid from Body Fluid Updated: 12/07/24 1700 Result No Acid Fast Bacilli isolated at 1 week. AFB Smear No acid fast bacilli seen Narrative: Specimen Description: peritoneal fluid Anaerobic Culture [[id number]] Collected: 11/30/24 1603 Order Status: Completed Specimen: Peritoneal Fluid from Body Fluid Updated: 12/05/24 0634 Result No Anaerobic growth Narrative: Specimen Description: peritoneal fluid Blood Culture [[id number]] Collected: 11/30/24 0340 Order Status: Completed Specimen: Blood from Arm, Left Updated: 12/05/24 0501 Result No growth in 5 days Blood Culture [[id number]] Collected: 11/30/24 0342 Order Status: Completed Specimen: Blood from Arm, Right Updated: 12/05/24 0501 Result No growth in 5 days Body Fluid Culture + Gram Stain [[id number]] Collected: 11/30/24 1603 Order Status: Completed Specimen: Peritoneal Fluid from Body Fluid Updated: 12/03/24 0907 Result No growth Gram Stain Result No organisms seen No cells seen Narrative: Specimen Description: peritoneal fluid Body Fluid/CSF - Path Review () [[id number]] Collected: 11/30/24 160 Order Status: Completed Specimen: [...] to continue with albumin/diuretics no indication for KENNEL KEEPER No significant pleural effusion for thoracentesis If needed repeat chest x-ray. Otherwise continue diuresis Pulmonary twill follow . If ABG not improving ,or worsening mental status recommended ICU Case discussed during round. I have personally evaluated the patient and performed a [id number] diagnostic evaluation on this patient; I have reviewed history, performed physical examination, reviewed laboratory studies. , andreviewed images independent of radiologist. I have actively directed the medical care, formulated assessemnt and plan of care. Patient requires a high complexity of decision making for assessment. 34 minutes critical care time was spent. Voice manager relocation technology (CamStent) is used for dictation of this note and sound-alike words might be erroneously placed despite reviewing the note for accuracy.Errors in dictation may reflect use of voice recognition software and not all errors in manager relocation may have been detectedprior to signing * [...] today,but continue to follow. Electronically signed by Alvina Barragan, PT - 12/07/2024 - 1:17 PM EDT * Deysi Foss MD - 12/07/2024 12:42 PM EDT EP progress note Patient Name: Mary Coronel Admission Date: 11/30/2024 Primary Care Provider: [facility] Find-a-Doc Chief Complaint/Reason for Consult: No chief complaint on file. History of Present Illness: Mary Coronel is a 64 y.o. female, admitted on: 11/30/2024 1:43 AM. presented to [facility] with swollen abdomen, abdominal discomfort and bilateral lower extremity pitting edema. Patient's BUN/creatinine elevated, and patient subsequently transferred to [facility] for hepatorenal syndrome evaluation. Admits to [...] Culture And Stain AFB Culture And Stain [facility] Non-Customer Logistics Manager Cytology [facility] Non-Customer Logistics Manager Cytology DIFFERENTIAL, BODY FLUID DIFFERENTIAL, BODY FLUID Body Fluid/CSF - Path Review () Body Fluid/CSF - Path Review () [facility] BONE MARROW SMEAR, ASPIRATION, AND STAIN [facility] BONE MARROW SMEAR, ASPIRATION, AND STAIN CANCELED: [...] BODY REMOVAL; Surgeon: Scott Daley MD; Location: [facility]; Service: Gastroenterology; Laterality: N/A; Allergies: No Known [...] Normal range of motion. Integumentary: Warm, Dry, [place]. Neurologic: No obvious focal deficit Psychiatric: Cooperative, Appropriate mood & affect. Labs, Imaging, and Other Studies: Echo Results (last 7 days) Procedure Component Value Units Date/Time ECHO COMPLETE (DOPPLER / COLOR) W OR WO CONTRAST [[id number]] Collected: 11/30/24724 Order Status: Completed Updated: 11/30/24 104 Narrative: TRANSTHORACIC ECHOCARDIOGRAPHY REPORT Demographics Patient Name: RIN JONES : 1960 Age: 64 year(s) Corporate ID Number: [id number] Gender Female Electoral Officer: Giovanna Rock Height: 67 inches [facility] Referring Physician: HUEY HURTADO Weight: 225 pounds Interpreting JESSICA RAYMOND MD BMI: 35.24 kg/m^2 Physician: Date of Service: 11/30/2024 Blood Pressure: 118/59 mmHg Room Number: 579 Type of Study: TTE procedure: ECHO COMPLETE (DOPPLER / COLOR) W OR WO CONTRAST. Patient Status: Routine IP Study Location: [facility] Quality: Adequate visualization History/Tech Notes: Indication: [...] 1.35 m/s E/A ratio: 0.97 m/s Volume .99 LV length: 8.51 cm ml Volume rjsplmei49.96 ml LVOT diameter: 1.79 cm Normal sized [...] Valve TR velocity: 2.51 m/s TR gradient: 25.64507 mmHg Estimated RAP: 3 mmHg RVSP: 28.12 [...] (DOPPLER / COLOR) W OR WO CONTRAST [[id number]] Collected: 11/30/24724 Order Status: Completed Updated: 11/30/24 1046 Narrative: TRANSTHORACIC ECHOCARDIOGRAPHY REPORT Demographics Patient Name: RIN JONES : 1960 Age: 64 year(s) Corporate ID Number: [id number] Gender Female Electoral Officer: Giovanna Rock Height: 67 inches [facility] Referring Physician: HUEY HURTADO Weight: 225 pounds [...] 1.35 m/s E/A ratio: 0.97 m/s Volume pceylkzbr223.99 LV length: 8.51 cm ml Volume nbtgqhap11.96 ml LVOT diameter: 1.79 cm Normal sized [...] Valve TR velocity: 2.51 m/s TR gradient: 25.64503 mmHg Estimated RAP: 3 mmHg RVSP: 28.12 [...] imaging. Assessment and Plan: *Paroxysmal Atrial Fib [id number] of 2 also have some wide-complex tachycardia [...] 90 BPM ATRIAL RATE (MCT) 90 BPM [place] Interval 142 ms QRS-INTERVAL (MSEC) 92 ms QT Interval 378 ms QTC Interval 462 ms P [place] 28 degrees R AXIS (MCT) -4 degrees T Wave [place] 21 degrees [place] Diagnosis Normal sinus rhythm Septal infarct , age undetermined Abnormal ECG When compared with ECG of 04-DEC-2024 20:08, Septal infarct is now present Nonspecific T wave abnormality no longer evident in Anterior leads Glucose, Nova Meter Status: Abnormal Collection Time: 12/06/24 4:06 PM Result Value Ref Range POC-GLUCOSE 134 (H) 70 - 110 mg/dL [employer] [id number] Glucose, Nova Meter Status: Abnormal Collection Time: 12/06/24 7:26 PM Result Value Ref Range POC-GLUCOSE 170 (H) 70 - 110 mg/dL [employer] [id number] CBC - Hemogram ([facility]) Status: Abnormal Collection [...] POC-GLUCOSE 159 (H) 70 - 110 mg/dL [employer]rer [id number] ECG 12 lead Status: None (In process) Collection Time: 12/07/24 10:29 AM Result Value Ref Range VENTRICULAR RATE EKG/MIN 91 BPM ATRIAL RATE (MCT) 91 BPM [place] Interval 142 ms QRS-INTERVAL (MSEC) 88 ms QT Interval 376 ms QTC Interval 462 ms P [place] 39 degrees R AXIS (MCT) -3 degrees T Wave [place] 4 degrees [place] Diagnosis Normal sinus rhythm Nonspecific T wave abnormality Abnormal ECG When compared with ECG of 06-DEC-2024 13:16, No significant change was found Glucose, Nova Meter Status: Abnormal Collection Time: 12/07/24 10:54 AM Result Value Ref Range POC-GLUCOSE 146 (H) 70 - 110 mg/dL [employer] [id number] XR chest AP portable Narrative: PORTABLE CHEST; [...] ordered Need to be transferred to ICU germination testing manager working discharge plan * Lian Dominguez [...] Orientation: Anterior;Left Site Assessment Red;Yellow [place]-Wound Assessment [place] Odor None Pressure Injury Stage 2 Wound care performing NDNQI rounds. Patient on JORJE surface, agreeable to assessment. During head totoe skin inspection a MDRPI found on patients left anterior thigh due to urinary catheter tubing. MDRPI verified by second wound care sales team recruiter. [facility] RN recommends cleansing site with NS, pat [...] Ext: +++ Pedal edema , no cyanosis TRIMMER SAWYER: Alert, No focal deficit noted grossly Psy: Cooperative Labs: Results for orders placed or performed during the hospital encounter of 11/30/24 (from the past 24 hours) Glucose, Nova Meter Status: Abnormal Collection Time: 12/06/24 10:36 AM Result Value Ref Range POC-GLUCOSE 150 (H) 70 - 110 mg/dL [employer]rer [id number] ECG 12 lead Status: None (In process) Collection Time: 12/06/24 1:16 PM Result Value Ref Range VENTRICULAR RATE EKG/MIN 90 BPM ATRIAL RATE (MCT) 90 BPM [place] Interval 142 ms QRS-INTERVAL (MSEC) 92 ms QT Interval 378 ms QTC Interval 462 ms P [place] 28 degrees R AXIS (MCT) -4 degrees T Wave [place] 21 degrees [place] Diagnosis Normal sinus rhythm Septal infarct , age undetermined Abnormal ECG When compared with ECG of 04-DEC-2024 20:08, Septal infarct is now present Nonspecific T wave abnormality no longer evident in Anterior leads Glucose, Nova Meter Status: Abnormal Collection Time: 12/06/24 4:06 PM Result Value Ref Range POC-GLUCOSE 134 (H) 70 - 110 mg/dL [employer] Upholsterer [id number] Glucose, Nova Meter Status: Abnormal Collection Time: 12/06/24 7:26 PM Result Value Ref Range POC-GLUCOSE 170 (H) 70 - 110 mg/dL [employer] Upholsterer [id number] CBC - Hemogram (-[facility] [place]) Status: Abnormal Collection Time: 12/07/24 3:59 AM [...] POC-GLUCOSE 159 (H) 70 - 110 mg/dL [employer] Upholsterer [id number] XR chest AP portable Narrative: PORTABLE CHEST; [...] for GFR - No emergent need of KENNEL KEEPER - Monitor H/H and transfuse for Hgb [...] this time. I have answered her questions Areil Mills MD 11/29/2024 7:25 AM * Deysi Foss MD - 12/06/2024 3:56 PM EDT EP progress note Patient Name: Mary Coronel Admission Date: 11/30/2024 Primary Care Provider: [facility] Find-a-Doc Chief Complaint/Reason for Consult: No chief complaint on file. History of Present Illness: Mary Coronel is a 64 y.o. female, admitted on: 11/30/2024 1:43 AM. presented to [facility] with swollen abdomen, abdominal discomfort and bilateral lower extremity pitting edema. Patient's BUN/creatinine elevated, and patient subsequently transferred to [facility] for hepatorenal syndrome evaluation. Admits to 4 weeks of progressive SOB, FUNK, orthopnea, lower extremi ty swelling, abdominal swelling, ataxia issues. States beforementioned [...] tablet 200 mg 200 mg oral Daily Dyesi Foss MD 200 mg at 12/06/24 0857 [...] Culture And Stain AFB Culture And Stain [facility] Non-Customer Logistics Manager Cytology [facility] Non-Customer Logistics Manager Cytology DIFFERENTIAL, BODY FLUID DIFFERENTIAL, BODY FLUID Body Fluid/CSF - Path Review (SJ) Body Fluid/CSF - Path Review () [facility] BONE MARROW SMEAR, ASPIRATION, AND STAIN [facility] BONE MARROW SMEAR, ASPIRATION, AND STAIN CANCELED: [...] BODY REMOVAL; Surgeon: Scott Daley MD; Location: [facility]; Service: Gastroenterology; Laterality: N/A; Allergies: No Known [...] Normal range of motion. Integumentary: Warm, Dry, [place]. Neurologic: No obvious focal deficit Psychiatric: Cooperative, Appropriate mood & affect. Labs, Imaging, and Other Studies: Echo Results (last 7 days) Procedure Component Value Units Date/Time ECHO COMPLETE (DOPPLER / COLOR) W OR WO CONTRAST [[id number]] Collected: 11/30/24724 Order Status: Completed Updated: 11/30/24 104 Narrative: TRANSTHORACIC ECHOCARDIOGRAPHY REPORT Demographics Patient Name: RIN JONES : 1960 Age: 64 year(s) Corporate ID Number: [id number] Gender Female Electoral Officer: Giovanna Rock Height: 67 inches [facility] Referring Physician: HUEY HURTADO Weight: 225 pounds [...] 1.35 m/s E/A ratio: 0.97 m/s Volume jaquazmgh244.99 LV length: 8.51 cm ml Volume bodxrybx70.96 ml LVOT diameter: 1.79 cm Normal sized [...] Valve TR velocity: 2.51 m/s TR gradient: 25.86395 mmHg Estimated RAP: 3 mmHg RVSP: 28.12 [...] (DOPPLER / COLOR) W OR WO CONTRAST [[id number]] Collected: 11/30/24724 Order Status: Completed Updated: 11/30/24 1046 Narrative: TRANSTHORACIC ECHOCARDIOGRAPHY REPORT Demographics Patient Name: RIN JONES : 1960 Age: 64 year(s) Corporate ID Number: [id number] Gender Female Electoral Officer: Giovanna Rock Height: 67 inches [facility] Referring Physician: HUEY HURTADO Weight: 225 pounds [...] 1.35 m/s E/A ratio: 0.97 m/s Volume zrqvydtqn137.99 LV length: 8.51 cm ml Volume qchjelyj59.96 ml LVOT diameter: 1.79 cm Normal sized [...] Valve TR velocity: 2.51 m/s TR gradient: 25.31988 mmHg Estimated RAP: 3 mmHg RVSP: 28.12 [...] imaging. Assessment and Plan: *Paroxysmal Atrial Fib [id number] of 2 also have some wide-complex tachycardia [...] POC-GLUCOSE 140 (H) 70 - 110 mg/dL [employer] Upholsterer [id number] Glucose, Nova Meter Status: Abnormal Collection Time: 12/05/24 7:21 PM Result Value Ref Range POC-GLUCOSE 145 (H) 70 - 110 mg/dL [employer] Uphol[employer]rer [id number] CBC - Hemogram (-[facility]) Status: Abnormal Collection [...] POC-GLUCOSE 143 (H) 70 - 110 mg/dL [employer] Upholsterer [id number] Glucose, Nova Meter Status: Abnormal Collection Time: 12/06/24 10:36 AM Result Value Ref Range POC-GLUCOSE 150 (H) 70 - 110 mg/dL [employer] Upholsterer [id number] ECG 12 lead Status: None (In process) Collection Time: 12/06/24 1:16 PM Result Value Ref Range VENTRICULAR RATE EKG/MIN 90 BPM ATRIAL RATE (MCT) 90 BPM [place] Interval 142 ms QRS-INTERVAL (MSEC) 92 ms QT Interval 378 ms QTC Interval 462 ms P [place] 28 degrees R AXIS (MCT) -4 degrees T Wave [place] 21 degrees [place] Diagnosis Normal sinus rhythm Septal infarct , [...] OT Monitor kidney function No emergent dialysis germination testing manager consulted Discharge Planning: Patient can be [...] Ext: +++ Pedal edema , no cyanosis TRIMMER SAWYER: Alert, No focal deficit noted grossly Psy: Cooperative Labs: Results for orders placed or performed during the hospital encounter of 11/30/24 (from the past 24 hours) Glucose, Nova Meter Status: Abnormal Collection Time: 12/05/24 10:23 AM Result Value Ref Range POC-GLUCOSE 141 (H) 70 - 110 mg/dL [employer] Upholsterer [id number] Hemoglobin Status: Abnormal Collection Time: 12/05/24 3:36 PM Result Value Ref Range Hemoglobin 8.1 (L) 11.2 - 15.7 GM/DL Glucose, Nova Meter Status: Abnormal Collection Time: 12/05/24 5:01 PM Result Value Ref Range POC-GLUCOSE 140 (H) 70 - 110 mg/dL Automotive Upholsterer [id number] Glucose, Nova Meter Status: Abnormal Collection Time: 12/05/24 7:21 PM Result Value Ref Range POC-GLUCOSE 145 (H) 70 - 110 mg/dL [employer]otive Upholsterer [id number] CBC - Hemogram ([facility]) Status: Abnormal Collection [...] POC-GLUCOSE 143 (H) 70 - 110 mg/dL [employer]otive Upholsterer [id number] XR chest AP portable Narrative: PORTABLE CHEST [...] for GFR - No emergent need of KENNEL KEEPER - Monitor H/H and transfuse for Hgb less than 7.0 - Serologic workup pending Discussed with patient * Blanka Malagon MD - 12/06/2024 8:20 AM EDT Images from the original note were not included. PULMONARY AND CRITICAL CARE Consult Note Date of Service: 12/06/2024 HPI: This is a 64 y.o. year old female with past medical history as below. She initially presented to [facility] with swollen abdomen, abdominal discomfort, and bilateral lower extremity pain. Her creatinine was elevated and as a result, she was transferred to [facility] [facility]. Upon arrival [...] BODY REMOVAL; Surgeon: Scott Daley MD; Location: [facility]; Service: Gastroenterology; Laterality: N/A; Allergies: No Known [...] POC-GLUCOSE 141 (H) 70 - 110 mg/dL Automotive Upholsterer [id number] Hemoglobin Status: Abnormal Collection Time: 12/05/24 3:36 PM Result Value Ref Range Hemoglobin 8.1 (L) 11.2 - 15.7 GM/DL Glucose, Nova Meter Status: Abnormal Collection Time: 12/05/24 5:01 PM Result Value Ref Range POC-GLUCOSE 140 (H) 70 - 110 mg/dL Automotive Upholsterer [id number] Glucose, Nova Meter Status: Abnormal Collection Time: 12/05/24 7:21 PM Result Value Ref Range POC-GLUCOSE 145 (H) 70 - 110 mg/dL Automotive Upholsterer [id number] CBC - Hemogram (SJ-BKR) Status: Abnormal Collection [...] POC-GLUCOSE 143 (H) 70 - 110 mg/dL Automotive Upholsterer [id number] Radiology Radiology Results (last day) Procedure Component Value Units Date/Time XR chest AP portable [[id number]] Resulted: 12/06/24 0806 Order Status: Sent Updated: 12/06/24 08 Microbiology: Microbiology Results (last 7 days) Procedure Component Value Units Date/Time Anaerobic Culture [[id number]] Collected: 11/30/24 1603 Order Status: Completed Specimen: Peritoneal Fluid from Body Fluid Updated: 12/05/24 0634 Result No Anaerobic growth Narrative: Specimen Description: peritoneal fluid Blood Culture [[id number]] Collected: 11/30/24 0340 Order Status: Completed Specimen: Blood from Arm, Left Updated: 12/05/24 0501 Result No growth in 5 days Blood Culture [[id number]] Collected: 11/30/24 0342 Order Status: Completed Specimen: Blood from Arm, Right Updated: 12/05/24 0501 Result No growth in 5 days Body Fluid Culture + Gram Stain [[id number]] Collected: 11/30/24 1603 Order Status: Completed Specimen: Peritoneal Fluid from Body Fluid Updated: 12/03/24 0907 Result No growth Gram Stain Result No organisms seen No cells seen Narrative: Specimen Description: peritoneal fluid Body Fluid/CSF - Path Review () [[id number]] Collected: 11/30/24 1603 Order Status: Completed Specimen: Peritoneal Fluid from Body Fluid Updated: 12/03/24 0654 SENT TO PATHOLOGY FOR REVIEW Yes Scan Result Mesothelial cells. MD German 12/02/2024 AFB Culture And Stain [[id number]] Collected: 11/30/24 1603 Order Status: Completed Specimen: Peritoneal Fluid from Body Fluid Updated: 12/01/24 1410 AFB Smear No acid fast bacilli seen Narrative: Specimen Description: peritoneal fluid Glucose, body fluid [[id number]] Collected: 11/30/24 1603 Order Status: Completed Specimen: Body Fluid from Peritoneal Fluid Updated: 12/01/24 0710 Glucose, Body Fluid 107 mg/dL BODY FLUID TYPE Peritoneal Narrative: This test has been modified from the master naval parachutist's instructions and its performance characteristics were determined by the laboratory. The reference intervals and other method performance specifications are unavailable for this test. It is recommended to interpret body fluid concentrations in comparison with the corresponding serum or plasma concentrations and to integrate test results into the clinical context. Protein, body fluid [[id number]] Collected: 11/30/241602 Order Status: Completed Specimen: Body Fluid from Peritoneal Fluid Updated: 12/01/24 0710 Protein, Fluid 1.9 g/dL BODY FLUID TYPE Peritoneal Narrative: This test has been modified from the master naval parachutist's instructions and its performance characteristics were determined by the laboratory. The reference intervals and other method performance specifications are unavailable for this test. It is recommended to interpret body fluid concentrations in comparison with the corresponding serum or plasma concentrations and to integrate test results into the clinical context. Urine Culture [[id number]] Collected: 11/30/24 1135 Order Status: Completed Specimen: Urine, Clean Catch Updated: 12/01/24648 Result Recollect Specimen - 3 or more organisms suggests contamination Body fluid cell count with differential [[id number]] (Abnormal) Collected: 11/30/241602 Order Status: Completed Specimen: [...] fluids are not defined. DIFFERENTIAL, BODY FLUID [[id number]] Collected: 11/30/241602 Order Status: Completed Specimen: Peritoneal Fluid from Body Fluid Updated: 11/30/242048 Neutrophils Fluid 5 % Lymphocytes Fluid 46 % Unidentified Mononuclear Cells BF 49 % Lactate dehydrogenase (LDH), body fluid [[id number]] Collected: 11/30/241602 Order Status: Completed Specimen: Peritoneal Fluid from Body Fluid Updated: 11/30/24 1819 LDH, Fluid 71 U/L BODY FLUID TYPE Peritoneal Narrative: This test has been modified from the master naval parachutist's instructions and its performance characteristics were determined by the laboratory. The reference intervals and other method performance specifications are unavailable for this test. It is recommended to interpret body fluid concentrations in comparison with the corresponding serum or plasma concentrations and to integrate test results into the clinical context. Fungus Culture W/ROSA MARIA Or Nimisha Ink [[id number]] Collected: 11/30/24 1603 Order Status: Completed Specimen: Peritoneal Fluid from Body Fluid Updated: 11/30/24 1754 ROSA MARIA Prep No fungal elements seen Narrative: Specimen Description: peritoneal fluid Total Protein, Body Fluid(SENDOUT) [[id number]] Collected: 11/30/24 1603 Order Status: Canceled Specimen: Peritoneal Fluid from Body Fluid Updated: 11/30/24 1634 Glucose Body Fluid(SENDOUT) [[id number]] Collected: 11/30/24 1603 Order Status: Canceled Specimen: Peritoneal Fluid from Body Fluid Updated: 11/30/24 1634 Urine Culture [[id number]] Collected: 11/30/24 1135 Order Status: Canceled Specimen: [...] to continue with albumin/diuretics no indication for KENNEL KEEPER Oxygenation improved 3 L nasal cannula, leg [...] personally evaluated the patient and performed a xfhg-vg-azng diagnostic evaluation on this patient; I have reviewed history, performed physical examination, reviewed laboratory studies. , and reviewed images independent of radiologist. I have actively directed the medical care, formulated assessemnt and plan of care. Patient requires a high complexity of decision making for assessment. 46 minutes pulmonary care clinical time was spent. Voice manager relocation technology (CamStent) is used for dictation of this note and sound-alike words might be erroneously placed despite reviewing the note for accuracy.Errors in dictation may reflect use of voice recognition software and not all errors in manager relocation may have been detectedprior to signing * [...] admitted on: 11/30/2024 1:43 AM. presented to [facility] with swollen abdomen, abdominal discomfort and bilateral lower extremity pitting edema. Patient's BUN/creatinine elevated, and patient subsequently transferred to [facility] for hepatorenal syndrome evaluation. Admits to [...] mg oral Every Night 20 mg at 12/04/242151 cefTRIAXone 2 g intravenous Q24H IVPB Stopped at 12/04/24 2221 ergocalciferol 50,000 Units oral Q7 Days 50,000 Units at 11/30/24 1459 gabapentin 300 mg oral TID 300 mg at 12/05/24 08 insulin lispro 0-18 Units subcutaneous 4x Daily AC 3 Units at 12/05/24 1034 lactulose 10 g oral BID pantoprazole 40 mg intravenous BID 40 mg at 12/05/24 08 rifAXIMin 550 mg oral BID 550 mg at 12/05/24 08 Current Infusions: Current Facility-Administered Medications Medication Dose Route Frequency Provider Last Rate Last Admin acetaminophen (TYLENOL) tablet 500 mg 500 mg oral Q4H PRN Huey Hurtado MD albumin human 25 % IV 25 g 25 g intravenous Q6H [facility] Timothy Bai MD 25 g at 12/05/24 [...] BID Destiney Llanes APRN 550 mg at 12/05/24 0813 sodium chloride 0.9 % infusion 20 mL/hr intravenous Once Denilson Hogdson, sodium chloride flush 10 mL 10 mL [...] Culture And Stain AFB Culture And Stain [facility] Non-Customer Logistics Manager Cytology [facility] Non-Customer Logistics Manager Cytology DIFFERENTIAL, BODY FLUID DIFFERENTIAL, BODY FLUID Body Fluid/CSF - Path Review () Body Fluid/CSF - Path Review () [facility] BONE MARROW SMEAR, ASPIRATION, AND STAIN [facility] BONE MARROW SMEAR, ASPIRATION, AND STAIN CANCELED: [...] BODY REMOVAL; Surgeon: Scott Daley MD; Location: [facility]; Service: Gastroenterology; Laterality: N/A; Allergies: No Known [...] Normal range of motion. Integumentary: Warm, Dry, [place]. Neurologic: No obvious focal deficit Psychiatric: Cooperative, Appropriate mood & affect. Labs, Imaging, and Other Studies: Echo Results (last 7 days) Procedure Component Value Units Date/Time ECHO COMPLETE (DOPPLER / COLOR) W OR WO CONTRAST [[id number]] Collected: 11/30/2425 Order Status: Completed Updated: 11/30/24 1046 Narrative: TRANSTHORACIC ECHOCARDIOGRAPHY REPORT Demographics Patient Name: RIN JONES : 1960 Age: 64 year(s) Corporate ID Number: [id number] Gender Female Electoral Officer: Giovanna Rock Height: 67 inches [facility] Referring Physician: HUEY HURTADO Weight: 225 pounds [...] 1.35 m/s E/A ratio: 0.97 m/s Volume xrckoxoeq810.99 LV length: 8.51 cm ml Volume qlakwwzw28.96 ml LVOT diameter: 1.79 cm Normal sized [...] Valve TR velocity: 2.51 m/s TR gradient: 25.43895 mmHg Estimated RAP: 3 mmHg RVSP: 28.12 [...] (DOPPLER / COLOR) W OR WO CONTRAST [[id number]] Collected: 11/30/24724 Order Status: Completed Updated: 11/30/24 1046 Narrative: TRANSTHORACIC ECHOCARDIOGRAPHY REPORT Demographics Patient Name: RIN JONES : 1960 Age: 64 year(s) Corporate ID Number: [id number] Gender Female Electoral Officer: Giovanna Rock Height: 67 inches [facility] Referring Physician: HUEY HURTADO Weight: 225 pounds [...] 1.35 m/s E/A ratio: 0.97 m/s Volume kundfzsdn658.99 LV length: 8.51 cm ml Volume pfzfqzda78.96 ml LVOT diameter: 1.79 cm Normal sized [...] Valve TR velocity: 2.51 m/s TR gradient: 25.44967 mmHg Estimated RAP: 3 mmHg RVSP: 28.12 [...] imaging. Assessment and Plan: *Paroxysmal Atrial Fib [id number] of 2 also have some wide-complex tachycardia [...] BODY REMOVAL; Surgeon: Scott Daley MD; Location: [facility]; Service: Gastroenterology; Laterality: N/A; General Visit Type: [...] Mobility Not assessed, patient ambulatory. Outcome Measures -[facility] Basic Mobility Inpatient Short Form How much [...] patient's discharge summary. Electronically signed by Alex Barajas, PT - 12/05/24 - 9:33 AM EDT [...] Ext: +++ Pedal edema , no cyanosis TRIMMER SAWYER: Alert, No focal deficit noted grossly Psy: Cooperative Labs: Results for orders placed or performed during the hospital encounter of 11/30/24 (from the past 24 hours) Glucose, Nova Meter Status: Abnormal Collection Time: 12/04/24 10:52 AM Result Value Ref Range POC-GLUCOSE 136 (H) 70 - 110 mg/dL Autom[employer] Upholsterer [id number] Basic Metabolic Panel Status: Abnormal Collection Time: [...] POC-GLUCOSE 137 (H) 70 - 110 mg/dL Automotive Upholsterer [id number] ECG 12 lead Status: None (In process) Collection Time: 12/04/24 8:08 PM Result Value Ref Range SYSTOLIC BLOOD PRESSURE (MCT) 133 mmHg DIASTOLIC BLOOD PRESSURE (MCT) 61 mmHg VENTRICULAR RATE EKG/MIN 85 BPM ATRIAL RATE (MCT) 85 BPM [place] Interval 140 ms QRS-INTERVAL (MSEC) 94 ms QT Interval 426 ms QTC Interval 506 ms P [place] 44 degrees R AXIS (MCT) 27 degrees T Wave [place] -27 degrees [place] Diagnosis Normal sinus rhythm Nonspecific T wave abnormality Abnormal ECG When compared with ECG of 04-DEC-2024 03:25, QT has lengthened Glucose, Nova Meter Status: Abnormal Collection Time: 12/04/24 10:20 PM Result Value Ref Range POC-GLUCOSE 147 (H) 70 - 110 mg/dL Automotive Upholsterer [id number] Hemoglobin Status: Abnormal Collection Time: 12/04/24 11:54 [...] POC-GLUCOSE 123 (H) 70 - 110 mg/dL Automotive Upholsterer [id number] XR chest AP portable Narrative: PORTABLE CHEST [...] renal function - No emergent need of KENNEL KEEPER - Monitor H/H and transfuse for Hgb [...] history as below. She initially presented to [facility] with swollen abdomen, abdominal discomfort, and bilateral lower extremity pain. Her creatinine was elevated and as a result, she was transferred to [facility] for he patorenal syndrome. Upon arrival [...] BODY REMOVAL; Surgeon: Scott Daley MD; Location: [facility]; Service: Gastroenterology; Laterality: N/A; Allergies: No Known [...] POC-GLUCOSE 136 (H) 70 - 110 mg/dL Automotive Upholsterer [id number] Basic Metabolic Panel Status: Abnormal Collection Time: [...] POC-GLUCOSE 137 (H) 70 - 110 mg/dL Automotive Upholsterer [id number] ECG 12 lead Status: None (In process) Collection Time: 12/04/24 8:08 PM Result Value Ref Range SYSTOLIC BLOOD PRESSURE (MCT) 133 mmHg DIASTOLIC BLOOD PRESSURE (MCT) 61 mmHg VENTRICULAR RATE EKG/MIN 85 BPM ATRIAL RATE (MCT) 85 BPM [place] Interval 140 ms QRS-INTERVAL (MSEC) 94 ms QT Interval 426 ms QTC Interval 506 ms P [place] 44 degrees R AXIS (MCT) 27 degrees T Wave [place] -27 degrees [place] Diagnosis Normal sinus rhythm Nonspecific T wave abnormality Abnormal ECG When compared with ECG of 04-DEC-2024 03:25, QT has lengthened Glucose, Nova Meter Status: Abnormal Collection Time: 12/04/24 10:20 PM Result Value Ref Range POC-GLUCOSE 147 (H) 70 - 110 mg/dL Automotive Upholsterer [id number] Hemoglobin Status: Abnormal Collection Time: 12/04/24 11:54 [...] POC-GLUCOSE 123 (H) 70 - 110 mg/dL Automotive Upholsterer [id number] Radiology Radiology Results (last day) Procedure Component Value Units Date/Time XR chest AP portable [[id number]] Collected: 12/04/24 0923 Order Status: Completed Updated: [...] Procedure Component Value Units Date/Time Anaerobic Culture [[id number]] Collected: 11/30/24 1603 Order Status: Completed Specimen: Peritoneal Fluid from Body Fluid Updated: 12/05/24 0634 Result No Anaerobic growth Narrative: Specimen Description: peritoneal fluid Blood Culture [[id number]] Collected: 11/30/24 0340 Order Status: Completed Specimen: Blood from Arm, Left Updated: 12/05/24 0501 Result No growth in 5 days Blood Culture [[id number]] Collected: 11/30/24 0342 Order Status: Completed Specimen: Blood from Arm, Right Updated: 12/05/24 0501 Result No growth in 5 days Body Fluid Culture + Gram Stain [[id number]] Collected: 11/30/24 1603 Order Status: Completed Specimen: Peritoneal Fluid from Body Fluid Updated: 12/03/24 0907 Result No growth Gram Stain Result No organisms seen No cells seen Narrative: Specimen Description: peritoneal fluid Body Fluid/CSF - Path Review () [[id number]] Collected: 11/30/24 1603 Order Status: Completed Specimen: Peritoneal Fluid from Body Fluid Updated: 12/03/24 0654 SENT TO PATHOLOGY FOR REVIEW Yes Scan Result Mesothelial cells. MD German 12/02/2024 AFB Culture And Stain [[id number]] Collected: 11/30/24 1603 Order Status: Completed Specimen: Peritoneal Fluid from Body Fluid Updated: 12/01/24 1410 AFB Smear No acid fast bacilli seen Narrative: Specimen Description: peritoneal fluid Glucose, body fluid [[id number]] Collected: 11/30/241602 Order Status: Completed Specimen: Body Fluid from Peritoneal Fluid Updated: 12/01/24709 Glucose, Body Fluid 107 mg/dL BODY FLUID TYPE Peritoneal Narrative: This test has been modified from the master naval parachutist's instructions and its performance characteristics were determined by the laboratory. The reference intervals and other method performance specifications are unavailable for this test. It is recommended to interpret body fluid concentrations in comparison with the corresponding serum or plasma concentrations and to integrate test results into the clinical context. Protein, body fluid [[id number]] Collected: 11/30/241602 Order Status: Completed Specimen: Body Fluid from Peritoneal Fluid Updated: 12/01/24709 Protein, Fluid 1.9 g/dL BODY FLUID TYPE Peritoneal Narrative: This test has been modified from the master naval parachutist's instructions and its performance characteristics were determined by the laboratory. The reference intervals and other method performance specifications are unavailable for this test. It is recommended to interpret body fluid concentrations in comparison with the corresponding serum or plasma concentrations and to integrate test results into the clinical context. Urine Culture [[id number]] Collected: 11/30/24 1135 Order Status: Completed Specimen: Urine, Clean Catch Updated: 12/01/24648 Result Recollect Specimen - 3 or more organisms suggests contamination Body fluid cell count with differential [[id number]] (Abnormal) Collected: 11/30/241602 Order Status: Completed Specimen: [...] fluids are not defined. DIFFERENTIAL, BODY FLUID [[id number]] Collected: 11/30/241602 Order Status: Completed Specimen: Peritoneal Fluid from Body Fluid Updated: 11/30/242048 Neutrophils Fluid 5 % Lymphocytes Fluid 46 % Unidentified Mononuclear Cells BF 49 % Lactate dehydrogenase (LDH), body fluid [[id number]] Collected: 11/30/24 1603 Order Status: Completed Specimen: Peritoneal Fluid from Body Fluid Updated: 11/30/24 1819 LDH, Fluid 71 U/L BODY FLUID TYPE Peritoneal Narrative: This test has been modified from the master naval parachutist's instructions and its performance characteristics were determined by the laboratory. The reference intervals and other method performance specifications are unavailable for this test. It is recommended to interpret body fluid concentrations in comparison with the corresponding serum or plasma concentrations and to integrate test results into the clinical context. Fungus Culture W/ROSA MARIA Or Nimisha Ink [[id number]] Collected: 11/30/24 1603 Order Status: Completed Specimen: Peritoneal Fluid from Body Fluid Updated: 11/30/24 1754 ROSA MARIA Prep No fungal elements seen Narrative: Specimen Description: peritoneal fluid Total Protein, Body Fluid(SENDOUT) [[id number]] Collected: 11/30/24 1603 Order Status: Canceled Specimen: Peritoneal Fluid from Body Fluid Updated: 11/30/24 1634 Glucose Body Fluid(SENDOUT) [[id number]] Collected: 11/30/24 1603 Order Status: Canceled Specimen: Peritoneal Fluid from Body Fluid Updated: 11/30/24 1634 Urine Culture [[id number]] Collected: 11/30/24 1135 Order Status: Canceled Specimen: [...] and lisinopril. Per nephrology there is no KENNEL KEEPER indication at this time. Ultrasound renal on [...] multidisciplinary team including nurse practitioner, nurse, RT, audience development manager, pharmacist, and case management during multidisciplinary round. I Dr.Hazim Jeramy MD, have personally evaluated the patient and performed a mwdi-oe-ayrh diagnostic evaluation on this patient; I have Obtained history, performed physical examination, reviewed laboratory studies. I have reviewed images independent of radiologist. I have actively directed the medical care, formulated diagnosis, and the plan of care. Patient requires a high complexity of decision making for assessment. Voice manager relocation technology (CamStent) is used for dictation of this note and sound-alike words might be erroneously placed despite reviewing the note for accuracy. Errors in dictation may reflect use of voice recognition software and not all errors in manager relocation may have been detected prior to signing. [...] POC-GLUCOSE 136 (H) 70 - 110 mg/dL Automotive Upholsterer [id number] Basic Metabolic Panel Status: Abnormal Collection Time: [...] POC-GLUCOSE 137 (H) 70 - 110 mg/dL Automotive Upholsterer [id number] ECG 12 lead Status: None (In process) Collection Time: 12/04/24 8:08 PM Result Value Ref Range SYSTOLIC BLOOD PRESSURE (MCT) 133 mmHg DIASTOLIC BLOOD PRESSURE (MCT) 61 mmHg VENTRICULAR RATE EKG/MIN 85 BPM ATRIAL RATE (MCT) 85 BPM [place] Interval 140 ms QRS-INTERVAL (MSEC) 94 ms QT Interval 426 ms QTC Interval 506 ms P [place] 44 degrees R AXIS (MCT) 27 degrees T Wave [place] -27 degrees [place] Diagnosis Normal sinus rhythm Nonspecific T wave abnormality Abnormal ECG When compared with ECG of 04-DEC-2024 03:25, QT has lengthened Glucose, Nova Meter Status: Abnormal Collection Time: 12/04/24 10:20 PM Result Value Ref Range POC-GLUCOSE 147 (H) 70 - 110 mg/dL Automotive Upholsterer [id number] Hemoglobin Status: Abnormal Collection Time: 12/04/24 11:54 [...] Coronel Admission Date: 11/30/2024 Primary Care Provider: [facility] Find-a-Doc Chief Complaint/Reason for Consult: No chief complaint on file. History of Present Illness: Mary Coronel is a 64 y.o. female, admitted on: 11/30/2024 1:43 AM. presented to [facility] with swollen abdomen, abdominal discomfort and bilateral lower extremity pitting edema. Patient's BUN/creatinine elevated, and patient subsequently transferred to [facility] for hepatorenal syndrome evaluation. Admits to [...] albumin human 25% 25 g intravenous Q6H [facility] amiodarone 150 mg intravenous Once atorvastatin 20 [...] IV 25 g 25 g intravenous Q6H [facility] Timothy Bai MD albuterol 2.5 mg /3 [...] Night Huey Hurtado MD 20 mg at 12/03/24 2134 benzocaine-menthoL (CEPACOL) lozenge 1 lozenge 1 lozenge [...] capsule 300 mg 300 mg oral TID Alejandrejax Boo MD 300 mg at 12/04/24 0739 glucagon injection [...] Culture And Stain AFB Culture And Stain [facility] Non-Customer Logistics Manager Cytology [facility] Non-Customer Logistics Manager Cytology DIFFERENTIAL, BODY FLUID DIFFERENTIAL, BODY FLUID Body Fluid/CSF - Path Review () Body Fluid/CSF - Path Review () [facility] BONE MARROW SMEAR, ASPIRATION, AND STAIN [facility] BONE MARROW SMEAR, ASPIRATION, AND STAIN CANCELED: [...] BODY REMOVAL; Surgeon: Scott Daley MD; Location: [facility]; Service: Gastroenterology; Laterality: N/A; Allergies: No Known [...] Normal range of motion. Integumentary: Warm, Dry, [place]. Neurologic: No obvious focal deficit Psychiatric: Cooperative, Appropriate mood & affect. Labs, Imaging, and Other Studies: Echo Results (last 7 days) Procedure Component Value Units Date/Time ECHO COMPLETE (DOPPLER / COLOR) W OR WO CONTRAST [[id number]] Collected: 11/30/24724 Order Status: Completed Updated: 11/30/241045 Narrative: TRANSTHORACIC ECHOCARDIOGRAPHY REPORT Demographics Patient Name: RIN JONES : 1960 Age: 64 year(s) Corporate ID Number: [id number] Gender Female Electoral Officer: Giovanna Rock Height: 67 inches [facility] Referring Physician: HUEY HURTADO Weight: 225 pounds [...] 1.35 m/s E/A ratio: 0.97 m/s Volume gxafvogso246.99 LV length: 8.51 cm ml Volume gqalfbiq48.96 ml LVOT diameter: 1.79 cm Normal sized [...] Valve TR velocity: 2.51 m/s TR gradient: 25.05880 mmHg Estimated RAP: 3 mmHg RVSP: 28.12 [...] (DOPPLER / COLOR) W OR WO CONTRAST [[id number]] Collected: 11/30/24724 Order Status: Completed Updated: 11/30/24 104 Narrative: TRANSTHORACIC ECHOCARDIOGRAPHY REPORT Demographics Patient Name: RIN JONES : 1960 Age: 64 year(s) Corporate ID Number: [id number] Gender Female Electoral Officer: Giovanna Rock Height: 67 inches [facility] Referring Physician: HUEY HURTADO Weight: 225 pounds Interpreting JESSICA RAYMOND MD BMI: 35.24 kg/m^2 Physician: Date of Service: 11/30/2024 Blood Pressure: 118/59 mmHg Room Number: 579 Type of Study: TTE procedure: ECHO COMPLETE (DOPPLER / COLOR) W OR WO CONTRAST. Patient Status: Routine IP Study Location: [facility] Quality: Adequate visualization History/Tech Notes: Indication: [...] 1.35 m/s E/A ratio: 0.97 m/s Volume cirrhvyfz591.99 LV length: 8.51 cm ml Volume fxfxixlu34.96 ml LVOT diameter: 1.79 cm Normal sized [...] Valve TR velocity: 2.51 m/s TR gradient: 25.94011 mmHg Estimated RAP: 3 mmHg RVSP: 28.12 [...] imaging. Assessment and Plan: *Paroxysmal Atrial Fib [id number] of 2 also have some wide-complex tachycardia [...] 97 BPM ATRIAL RATE (MCT) 97 BPM [place] Interval 150 ms QRS-INTERVAL (MSEC) 88 ms QT Interval 362 ms QTC Interval 459 ms P [place] 40 degrees R AXIS (MCT) 8 degrees T Wave [place] -8 degrees [place] Diagnosis Normal sinus rhythm Normal ECG No previous ECGs available Confirmed by DEYSI FOSS M.D. ([id number]) on 12/03/2024 5:59:01 PM Glucose, Nova Meter Status: Abnormal Collection Time: 12/03/24 10:45 AM Result Value Ref Range POC-GLUCOSE 156 (H) 70 - 110 mg/dL [employer] [id number] ECG 12 lead Status: None Collection Time: 12/03/24 2:16 PM Result Value Ref Range VENTRICULAR RATE EKG/MIN 136 BPM ATRIAL RATE (MCT) 73 BPM QRS-INTERVAL (MSEC) 88 ms QT Interval 304 ms QTC Interval 457 ms R AXIS (MCT) -11 degrees [place] -58 degrees [place] Diagnosis Atrial fibrillation with rapid ventricular response Possible Anterolateral infarct , age undetermined Possible abberancy Confirmed by DEYSI FOSS M.D. ([id number]) on 12/03/2024 5:58:45 PM Glucose, Nova Meter Status: Abnormal Collection Time: 12/03/24 5:19 PM Result Value Ref Range POC-GLUCOSE 146 (H) 70 - 110 mg/dL [employer] [id number] Glucose, Nova Meter Status: Abnormal Collection Time: 12/03/24 9:41 PM Result Value Ref Range POC-GLUCOSE 146 (H) 70 - 110 mg/dL [employer] [id number] Hemoglobin Status: Abnormal Collection Time: 12/04/24 1:04 AM Result Value Ref Range Hemoglobin 9.0 (L) 11.2 - 15.7 GM/DL ECG 12 lead Status: None (In process) Collection Time: 12/04/24 3:25 AM Result Value Ref Range SYSTOLIC BLOOD PRESSURE (MCT) 165 mmHg DIASTOLIC BLOOD PRESSURE (MCT) 77 mmHg VENTRICULAR RATE EKG/MIN 80 BPM ATRIAL RATE (MCT) 80 BPM [place] Interval 154 ms QRS-INTERVAL (MSEC) 76 ms QT Interval 380 ms QTC Interval 438 ms P [place] 47 degrees R AXIS (MCT) 44 degrees [place] -30 degrees [place] Diagnosis Normal sinus rhythm Low voltage QRS [...] POC-GLUCOSE 155 (H) 70 - 110 mg/dL [employer] [id number] Blood gas, arterial Status: Abnormal Collection Time: [...] ARTERIAL 8.6 (L) 12.0 - 18.0 g/dL [facility] COLLECTION SITE Right Brachial Arterial Puncture Yes Blood Gas O2 Delivery Device Cannula Oxygen Flow Rate 3 Blood Gas PT Temperature C 37.0 Sen's Test Not Applicable Critical Values Notification Critical Blood gas called to DAYANARA MATIAS . Results acknowledged/read back to [id number] and confirmed on 12/04/2024 07:09 ABG Number [...] history as below. She initially presented to [facility] with swollen abdomen, abdominal discomfort, and bilateral lower extremity pain. Her creatinine was elevated and as a result, she was transferred to [facility] for he patorenal syndrome. Upon arrival [...] BODY REMOVAL; Surgeon: Scott Daley MD; Location: [facility]; Service: Gastroenterology; Laterality: N/A; Allergies: No Known [...] 97 BPM ATRIAL RATE (MCT) 97 BPM [place] Interval 150 ms QRS-INTERVAL (MSEC) 88 ms QT Interval 362 ms QTC Interval 459 ms P [place] 40 degrees R AXIS (MCT) 8 degrees [place] -8 degrees [place] Diagnosis Normal sinus rhythm Normal ECG No previous ECGs available Confirmed by DEYSI FOSS M.D. ([id number]) on 12/03/2024 5:59:01 PM Glucose, Nova Meter Status: Abnormal Collection Time: 12/03/24 10:45 AM Result Value Ref Range POC-GLUCOSE 156 (H) 70 - 110 mg/dL [employer] [id number] ECG 12 lead Status: None Collection Time: 12/03/24 2:16 PM Result Value Ref Range VENTRICULAR RATE EKG/MIN 136 BPM ATRIAL RATE (MCT) 73 BPM QRS-INTERVAL (MSEC) 88 ms QT Interval 304 ms QTC Interval 457 ms R AXIS (MCT) -11 degrees [place] -58 degrees [place] Diagnosis Atrial fibrillation with rapid ventricular response Possible Anterolateral infarct , age undetermined Possible abberancy Confirmed by DEYSI FOSS M.D. ([id number]) on 12/03/2024 5:58:45 PM Glucose, Nova Meter Status: Abnormal Collection Time: 12/03/24 5:19 PM Result Value Ref Range POC-GLUCOSE 146 (H) 70 - 110 mg/dL [employer] [id number] Glucose, Nova Meter Status: Abnormal Collection Time: 12/03/24 9:41 PM Result Value Ref Range POC-GLUCOSE 146 (H) 70 - 110 mg/dL [employer] [id number] Hemoglobin Status: Abnormal Collection Time: 12/04/24 1:04 AM Result Value Ref Range Hemoglobin 9.0 (L) 11.2 - 15.7 GM/DL ECG 12 lead Status: None (In process) Collection Time: 12/04/24 3:25 AM Result Value Ref Range SYSTOLIC BLOOD PRESSURE (MCT) 165 mmHg DIASTOLIC BLOOD PRESSURE (MCT) 77 mmHg VENTRICULAR RATE EKG/MIN 80 BPM ATRIAL RATE (MCT) 80 BPM [place] Interval 154 ms QRS-INTERVAL (MSEC) 76 ms QT Interval 380 ms QTC Interval 438 ms P [place] 47 degrees R AXIS (MCT) 44 degrees [place] -30 degrees [place] Diagnosis Normal sinus rhythm Low voltage QRS [...] POC-GLUCOSE 155 (H) 70 - 110 mg/dL [employer] [id number] Blood gas, arterial Status: Abnormal Collection Time: [...] ARTERIAL 8.6 (L) 12.0 - 18.0 g/dL [facility] COLLECTION SITE Right Brachial Arterial Puncture Yes Blood Gas O2 Delivery Device Cannula Oxygen Flow Rate 3 Blood Gas PT Temperature C 37.0 Sen's Test Not Applicable Critical Values Notification Critical Blood gas called to DAYANARA MATIAS . Results acknowledged/read back to [id number] and confirmed on 12/04/2024 07:09 ABG Number of Draw Attempts 1 FIO2 Blood Gas Temperature Corrected Results No No Radiology Radiology Results (last day) Procedure Component Value Units Date/Time XR chest AP portable [[id number]] Resulted: 12/04/24 075 Order Status: Sent Updated: 12/04/24750 XR chest AP portable [[id number]] Collected: 05/09/25 1806 Order Status: Completed Updated: 12/03/24 1808 Narrative: PORTABLE CHEST 12/03/2024 3:53 PM HISTORY: Precordial chest pain. COMPARISON: 3 days prior. FINDINGS: The heart is stable in size . There has been interval worsening in the vascular congestion. There is no pneumothorax . Impression: Interval worsening as above. Continued follow up recommended . Images reviewed, interpreted, and dictated by JoseC Calhoun MD Microbiology: Microbiology Results (last 7 days) Procedure Component Value Units Date/Time Anaerobic Culture [[id number]] Collected: 11/30/24 1603 Order Status: Completed Specimen: Peritoneal Fluid from Body Fluid Updated: 12/04/24 0754 Result No Anaerobic growth Narrative: Specimen Description: peritoneal fluid Blood Culture [[id number]] Collected: 11/30/24 0340 Order Status: Completed Specimen: Blood from Arm, Left Updated: 12/04/24 0501 Result No growth in 4 days Blood Culture [[id number]] Collected: 11/30/24 0342 Order Status: Completed Specimen: Blood from Arm, Right Updated: 12/04/24 0501 Result No growth in 4 days Body Fluid Culture + Gram Stain [[id number]] Collected: 11/30/24 1603 Order Status: Completed Specimen: Peritoneal Fluid from Body Fluid Updated: 12/03/24 0907 Result No growth Gram Stain Result No organisms seen No cells seen Narrative: Specimen Description: peritoneal fluid Body Fluid/CSF - Path Review () [[id number]] Collected: 11/30/24 1603 Order Status: Completed Specimen: Peritoneal Fluid from Body Fluid Updated: 12/03/24 0654 SENT TO PATHOLOGY FOR REVIEW Yes Scan Result Mesothelial cells. MD German 12/02/2024 AFB Culture And Stain [[id number]] Collected: 11/30/24 1603 Order Status: Completed Specimen: Peritoneal Fluid from Body Fluid Updated: 12/01/24 1410 AFB Smear No acid fast bacilli seen Narrative: Specimen Description: peritoneal fluid Glucose, body fluid [[id number]] Collected: 11/30/24 1603 Order Status: Completed Specimen: Body Fluid from Peritoneal Fluid Updated: 12/01/24 0710 Glucose, Body Fluid 107 mg/dL BODY FLUID TYPE Peritoneal Narrative: This test has been modified from the master naval parachutist's instructions and its performance characteristics were determined by the laboratory. The reference intervals and other method performance specifications are unavailable for this test. It is recommended to interpret body fluid concentrations in comparison with the corresponding serum or plasma concentrations and to integrate test results into the clinical context. Protein, body fluid [[id number]] Collected: 11/30/241602 Order Status: Completed Specimen: Body Fluid from Peritoneal Fluid Updated: 12/01/24 0710 Protein, Fluid 1.9 g/dL BODY FLUID TYPE Peritoneal Narrative: This test has been modified from the master naval parachutist's instructions and its performance characteristics were determined by the laboratory. The reference intervals and other method performance specifications are unavailable for this test. It is recommended to interpret body fluid concentrations in comparison with the corresponding serum or plasma concentrations and to integrate test results into the clinical context. Urine Culture [[id number]] Collected: 11/30/24 1135 Order Status: Completed Specimen: Urine, Clean Catch Updated: 12/01/24648 Result Recollect Specimen - 3 or more organisms suggests contamination Body fluid cell count with differential [[id number]] (Abnormal) Collected: 11/30/241602 Order Status: Completed Specimen: [...] fluids are not defined. DIFFERENTIAL, BODY FLUID [[id number]] Collected: 11/30/241602 Order Status: Completed Specimen: Peritoneal Fluid from Body Fluid Updated: 11/30/242048 Neutrophils Fluid 5 % Lymphocytes Fluid 46 % Unidentified Mononuclear Cells BF 49 % Lactate dehydrogenase (LDH), body fluid [[id number]] Collected: 11/30/241602 Order Status: Completed Specimen: Peritoneal Fluid from Body Fluid Updated: 11/30/24 1819 LDH, Fluid 71 U/L BODY FLUID TYPE Peritoneal Narrative: This test has been modified from the master naval parachutist's instructions and its performance characteristics were determined by the laboratory. The reference intervals and other method performance specifications are unavailable for this test. It is recommended to interpret body fluid concentrations in comparison with the corresponding serum or plasma concentrations and to integrate test results into the clinical context. Fungus Culture W/ROSA MARIA Or Nimisha Ink [[id number]] Collected: 11/30/24 1603 Order Status: Completed Specimen: Peritoneal Fluid from Body Fluid Updated: 11/30/24 1754 ROSA MARIA Prep No fungal elements seen Narrative: Specimen Description: peritoneal fluid Total Protein, Body Fluid(SENDOUT) [[id number]] Collected: 11/30/24 1603 Order Status: Canceled Specimen: Peritoneal Fluid from Body Fluid Updated: 11/30/24 1634 Glucose Body Fluid(SENDOUT) [[id number]] Collected: 11/30/24 1603 Order Status: Canceled Specimen: Peritoneal Fluid from Body Fluid Updated: 11/30/24 1634 Urine Culture [[id number]] Collected: 11/30/24 1135 Order Status: Canceled Specimen: [...] and lisinopril. Per nephrology there is no KENNEL KEEPER indication at this time. Ultrasound renal on [...] multidisciplinary team including nurse practitioner, nurse, RT, audience development manager, pharmacist, and case management during multidisciplinary round. I Dr.Hazim Jeramy MD, have personally evaluated the patient and performed a slby-ze-vius diagnostic evaluation on this patient; I have Obtained history, performed physical examination, reviewed laboratory studies. I have reviewed images independent of radiologist. I have actively directed the medical care, formulated diagnosis, and the plan of care. Patient requires a high complexity of decision making for assessment. Voice manager relocation technology (CamStent) is used for dictation of this note and sound-alike words might be erroneously placed despite reviewing the note for accuracy. Errors in dictation may reflect use of voice recognition software and not all errors in manager relocation may have been detected prior to signing. [...] Ext: +++ Pedal edema , no cyanosis TRIMMER SAWYER: Alert, No focal deficit noted grossly Psy: [...] 97 BPM ATRIAL RATE (MCT) 97 BPM [place] Interval 150 ms QRS-INTERVAL (MSEC) 88 ms QT Interval 362 ms QTC Interval 459 ms P [place] 40 degrees R AXIS (MCT) 8 degrees [place] -8 degrees [place] Diagnosis Normal sinus rhythm Normal ECG No previous ECGs available Confirmed by DEYSI FOSS M.D. ([id number]) on 12/03/2024 5:59:01 PM Glucose, Nova Meter Status: Abnormal Collection Time: 12/03/24 10:45 AM Result Value Ref Range POC-GLUCOSE 156 (H) 70 - 110 mg/dL [employer] [id number] ECG 12 lead Status: None Collection Time: 12/03/24 2:16 PM Result Value Ref Range VENTRICULAR RATE EKG/MIN 136 BPM ATRIAL RATE (MCT) 73 BPM QRS-INTERVAL (MSEC) 88 ms QT Interval 304 ms QTC Interval 457 ms R AXIS (MCT) -11 degrees [place] -58 degrees [place] Diagnosis Atrial fibrillation with rapid ventricular response Possible Anterolateral infarct , age undetermined Possible abberancy Confirmed by DEYSI FOSS M.D. ([id number]) on 12/03/2024 5:58:45 PM Glucose, Nova Meter Status: Abnormal Collection Time: 12/03/24 5:19 PM Result Value Ref Range POC-GLUCOSE 146 (H) 70 - 110 mg/dL [employer] [id number] Glucose, Nova Meter Status: Abnormal Collection Time: 12/03/24 9:41 PM Result Value Ref Range POC-GLUCOSE 146 (H) 70 - 110 mg/dL [employer] [id number] Hemoglobin Status: Abnormal Collection Time: 12/04/24 1:04 AM Result Value Ref Range Hemoglobin 9.0 (L) 11.2 - 15.7 GM/DL ECG 12 lead Status: None (In process) Collection Time: 12/04/24 3:25 AM Result Value Ref Range SYSTOLIC BLOOD PRESSURE (MCT) 165 mmHg DIASTOLIC BLOOD PRESSURE (MCT) 77 mmHg VENTRICULAR RATE EKG/MIN 80 BPM ATRIAL RATE (MCT) 80 BPM [place] Interval 154 ms QRS-INTERVAL (MSEC) 76 ms QT Interval 380 ms QTC Interval 438 ms P [place] 47 degrees R AXIS (MCT) 44 degrees [place] -30 degrees [place] Diagnosis Normal sinus rhythm Low voltage QRS [...] POC-GLUCOSE 155 (H) 70 - 110 mg/dL [employer] [id number] Blood gas, arterial Status: Abnormal Collection Time: [...] ARTERIAL 8.6 (L) 12.0 - 18.0 g/dL [facility] COLLECTION SITE Right Brachial Arterial Puncture Yes Blood Gas O2 Delivery Device Cannula Oxygen Flow Rate 3 Blood Gas PT Temperature C 37.0 Sen's Test Not Applicable Critical Values Notification Critical Blood gas called to DAYANARA MATIAS . Results acknowledged/read back to [id number] and confirmed on 12/04/2024 07:09 ABG Number [...] renal function - No emergent need of KENNEL KEEPER - Monitor H/H and transfuse for Hgb [...] Ext: +++ Pedal edema , no cyanosis TRIMMER SAWYER: Alert, No focal deficit noted grossly Psy: Cooperative Labs: Results for orders placed or performed during the hospital encounter of 11/30/24 (from the past 24 hours) Glucose, Nova Meter Status: Abnormal Collection Time: 12/02/24 5:18 PM Result Value Ref Range POC-GLUCOSE 128 (H) 70 - 110 mg/dL [employer] [id number] Hemoglobin Status: Abnormal Collection Time: 12/02/24 6:03 PM Result Value Ref Range Hemoglobin 9.1 (L) 11.2 - 15.7 GM/DL Glucose, Nova Meter Status: Abnormal Collection Time: 12/02/24 8:06 PM Result Value Ref Range POC-GLUCOSE 144 (H) 70 - 110 mg/dL [employer] [id number] Hemoglobin Status: Abnormal Collection Time: 12/02/24 11:06 PM Result Value Ref Range Hemoglobin 8.9 (L) 11.2 - 15.7 GM/DL Glucose, Nova Meter Status: Abnormal Collection Time: 12/03/24 1:10 AM Result Value Ref Range POC-GLUCOSE 164 (H) 70 - 110 mg/dL [employer] [id number] Glucose, Nova Meter Status: Abnormal Collection Time: 12/03/24 1:12 AM Result Value Ref Range POC-GLUCOSE 168 (H) 70 - 110 mg/dL [employer] Uphol[employer]rer [id number] Glucose, Nova Meter Status: Abnormal Collection Time: 12/03/24 5:13 AM Result Value Ref Range POC-GLUCOSE 142 (H) 70 - 110 mg/dL [employer] [id number] Magnesium Status: Normal Collection Time: 12/03/24 7:39 [...] 97 BPM ATRIAL RATE (MCT) 97 BPM [place] Interval 150 ms QRS-INTERVAL (MSEC) 88 ms QT Interval 362 ms QTC Interval 459 ms P [place] 40 degrees R AXIS (MCT) 8 degrees [place] -8 degrees [place] Diagnosis Normal sinus rhythm Normal ECG No previous ECGs available Glucose, Nova Meter Status: Abnormal Collection Time: 12/03/24 10:45 AM Result Value Ref Range POC-GLUCOSE 156 (H) 70 - 110 mg/dL [employer] [id number] ECG 12 lead Status: None (In process) Collection Time: 12/03/24 2:16 PM Result Value Ref Range VENTRICULAR RATE EKG/MIN 136 BPM ATRIAL RATE (MCT) 73 BPM QRS-INTERVAL (MSEC) 88 ms QT Interval 304 ms QTC Interval 457 ms R AXIS (MCT) -11 degrees [place] -58 degrees [place] Diagnosis Atrial fibrillation with rapid ventricular response Possible Anterolateral infarct , age undetermined Abnormal ECG When compared with ECG of 03-DEC-2024 10:39, Atrial fibrillation has replaced Sinus rhythm CT bone marrow biopsy Narrative: CT GUIDED BONE MARROW ASPIRATION AND CORE BIOPSY. HISTORY: Pancytopenia. ATTENDING RADIOLOGIST: Dr. Haseeb Gil. PHYSICIAN UM NURSE: Sandra Ramsey PA-C PROCEDURE: After informed consent [...] renal function - No emergent need of KENNEL KEEPER - Monitor H/H and transfuse for Hgb less than 7.0 * Brandan Kerr, PT - 12/03/2024 2:16 PM EDT Images from the original note were not included. Inpatient Physical Therapy Attempt to Treat Patient Name: Mary Coronel Birthday: 1960 Date of Attempt: 12/03/2024 Time: 0402-0708. Gathered subjective history from patient and assessed [...] Coronel Admit Date: 11/30/2024 LOS: 3 days Location:[phone] PCP on file: [facility] Find-a-Doc Principal Problem: Anasarca ASSESSMENT & PLAN [...] Dr. Law Cote on December 07 in [place], [place]. -No evidence of SBP -Continue Lactulose/Xifaxan [...] POC-GLUCOSE 112 (H) 70 - 110 mg/dL [employer]ol[employer] [id number] Glucose, Nova Meter Status: Abnormal Collection Time: 12/02/24 5:18 PM Result Value Ref Range POC-GLUCOSE 128 (H) 70 - 110 mg/dL [employer] Uphol[employer]rer [id number] Hemoglobin Status: Abnormal Collection Time: 12/02/24 6:03 PM Result Value Ref Range Hemoglobin 9.1 (L) 11.2 - 15.7 GM/DL Glucose, Nova Meter Status: Abnormal Collection Time: 12/02/24 8:06 PM Result Value Ref Range POC-GLUCOSE 144 (H) 70 - 110 mg/dL [employer] Upholsterer [id number] Hemoglobin Status: Abnormal Collection Time: 12/02/24 11:06 PM Result Value Ref Range Hemoglobin 8.9 (L) 11.2 - 15.7 GM/DL Glucose, Nova Meter Status: Abnormal Collection Time: 12/03/24 1:10 AM Result Value Ref Range POC-GLUCOSE 164 (H) 70 - 110 mg/dL [employer] Uphol[employer]rer [id number] Glucose, Nova Meter Status: Abnormal Collection Time: 12/03/24 1:12 AM Result Value Ref Range POC-GLUCOSE 168 (H) 70 - 110 mg/dL [employer]phol[employer]rer [id number] Glucose, Nova Meter Status: Abnormal Collection Time: 12/03/24 5:13 AM Result Value Ref Range POC-GLUCOSE 142 (H) 70 - 110 mg/dL [employer]ol[employer] [id number] Magnesium Status: Normal Collection Time: 12/03/24 7:39 [...] Value Units Date/Time CT bone marrow biopsy [[id number]] Collected: 12/02/241523 Order Status: Completed Updated: 12/02/24 1810 Narrative: CT GUIDED BONE MARROW ASPIRATION AND CORE BIOPSY. HISTORY: Pancytopenia. ATTENDING RADIOLOGIST: Dr. Haseeb Gil. PHYSICIAN UM NURSE: Sandra Ramsey PA-C PROCEDURE: After informed consent [...] Transcribed by Sandra Ramsey PA-C. Ultrasound liver [[id number]] Collected: 11/30/24 1643 Order Status: Completed Updated: 11/30/241654 Narrative: CLINICAL [...] and dictated by SABINE Yang. US paracentesis [[id number]] Collected: 11/30/24 1637 Order Status: Completed Updated: 11/30/241654 Narrative: ULTRASOUND-GUIDED PARACENTESIS HISTORY: Ascites ATTENDING PHYSICIAN: Dr. Haseeb Gil PHYSICIAN UM NURSE: Gabriel Velasco PA-C FINDINGS: After informed consent [...] by Gabriel Velasco PA-C. Ultrasound renal limited [[id number]] Collected: 11/30/24 1646 Order Status: Completed Updated: [...] Ronnell Tom MD XR chest AP portable [[id number]] Collected: 11/30/24 1215 Order Status: Completed Updated: [...] AM Result Value Ref Range Issue Date/Time [id number] Product Identification Red Blood Cells Product Code C2206P89 Status Information Transfused Unit Number [id number] Blood Type 5100 Cross Match Results Compatible Glucose, Nova Meter Status: Abnormal Collection Time: 12/02/24 12:51 PM Result Value Ref Range POC-GLUCOSE 112 (H) 70 - 110 mg/dL Automotive Upholsterer [id number] Glucose, Nova Meter Status: Abnormal Collection Time: 12/02/24 5:18 PM Result Value Ref Range POC-GLUCOSE 128 (H) 70 - 110 mg/dL Automotive Upholsterer [id number] Hemoglobin Status: Abnormal Collection Time: 12/02/24 6:03 PM Result Value Ref Range Hemoglobin 9.1 (L) 11.2 - 15.7 GM/DL Glucose, Nova Meter Status: Abnormal Collection Time: 12/02/24 8:06 PM Result Value Ref Range POC-GLUCOSE 144 (H) 70 - 110 mg/dL Automotive Upholsterer [id number] Hemoglobin Status: Abnormal Collection Time: 12/02/24 11:06 PM Result Value Ref Range Hemoglobin 8.9 (L) 11.2 - 15.7 GM/DL Glucose, Nova Meter Status: Abnormal Collection Time: 12/03/24 1:10 AM Result Value Ref Range POC-GLUCOSE 164 (H) 70 - 110 mg/dL Automotive Upholsterer [id number] Glucose, Nova Meter Status: Abnormal Collection Time: 12/03/24 1:12 AM Result Value Ref Range POC-GLUCOSE 168 (H) 70 - 110 mg/dL Automotive Upholsterer [id number] Glucose, Nova Meter Status: Abnormal Collection Time: 12/03/24 5:13 AM Result Value Ref Range POC-GLUCOSE 142 (H) 70 - 110 mg/dL Automotive Uphol[employer]rer [id number] Magnesium Status: Normal Collection Time: 12/03/24 7:39 [...] Pancytopenia. ATTENDING RADIOLOGIST: Dr. Haseeb Gil. PHYSICIAN UM NURSE: Sandra Ramsey PA-C PROCEDURE: After informed consent [...] clinical improvement and improvement in creatinine * DAWOOD Gaona/Amada - 12/03/2024 8:39 AM EDT Images from [...] BODY REMOVAL; Surgeon: Scott Daley MD; Location: [facility]; Service: Gastroenterology; Laterality: N/A; General Visit type: Treatment Approved by: Nurse Cora Patient disposition upon entry: Patient verified by [...] of toilet hygiene in standing supported at Balance Static sitting balance:Good: Patient able to [...] in Afib w/RVR and c/o SOB. EP STORE CONSULTANT notified.New orders taken. IV Amio 150mg bolus given. 1430 Dr Blas batista to transfer pt to ICU 1445 Pt transferred to CCU-bed 7. Report called to CCU RN. Transferred via bed, with monitor, O2 * Laura Rangel MD - 12/02/2024 3:42 PM EDT Hematology [...] BODY REMOVAL; Surgeon: Scott Daley MD; Location: [facility]; Service: Gastroenterology; Laterality: N/A; Allergies: Patient has [...] (H) 12/02/2024 0338 CO2 19 (L) 12/02/2024 0338 BUN 55.1 (H) 12/02/2024337 CREATININE 3.55 (H) 12/02/2024 0338 Component Value Date/Time CALCIUM 7.9 (L) 12/02/2024 0338 ALKPHOS 49 12/02/2024 0338 AST 32 12/02/2024 0338 ALT 8 12/02/2024 0338 BILITOT 0.9 12/02/2024 0338 Radiology Results (last 7 days) Procedure Component Value Units Date/Time CT bone marrow biopsy [[id number]] Collected: 12/02/24 152 Order Status: Completed Updated: 12/02/241525 Narrative: CT GUIDED BONE MARROW ASPIRATION AND CORE BIOPSY. HISTORY: Pancytopenia. ATTENDING RADIOLOGIST: Dr. Haseeb Gil. PHYSICIAN UM NURSE: Sandra Ramsey PA-C PROCEDURE: After informed consent [...] by Sandra Ramsey PA-C. Ultrasound renal limited [[id number]] Collected: 11/30/24 164 Order Status: Completed Updated: [...] dictated by Ronnell Tom MD Ultrasound liver [[id number]] Collected: 11/30/24 164 Order Status: Completed Updated: [...] and dictated by SABINE Yang. US paracentesis [[id number]] Collected: 11/30/24 1637 Order Status: Completed Updated: 11/30/24 1655 Narrative: ULTRASOUND-GUIDED PARACENTESIS HISTORY: Ascites ATTENDING PHYSICIAN: Dr. Haseeb Gil PHYSICIAN UM NURSE: Gabriel Velasco PA-C FINDINGS: After informed consent [...] Gabriel Velasco PA-C. XR chest AP portable [[id number]] Collected: 11/30/24 1215 Order Status: Completed Updated: [...] C Calhoun. Transcribed by Marielos Sotelo PA-C. renal complete [[id number]] Order Status: Canceled Assessment Pancytopenia. She had [...] to follow-up. Signed: Electronically signed by Laura Rangel MD 12/02/2024 3:42 PM EDT * Brandan [...] - 3:32 PM EDT * Destiney Llanes, CHIEF CLIENT OFFICER - 12/02/2024 10:15 AM EDT Name: Mary Coronel Admit Date: 11/30/2024 LOS: 2 days Location:[phone] PCP on file: [facility] Find-a-Doc Principal Problem: Anasarca ASSESSMENT & PLAN for 12/02/2024 Principal Problem: Anasarca Assessment: 64 y/o with history of NAFLD presents to our facility w/ increased abdominal distention and LLE. Found to have increased renal function and pancytopenia. She denies alcohol use. [facility] but never follow up after 2021. [...] Range POC-GLUCOSE 100 70 - 110 mg/dL Automotive Upholsterer [id number] Hemoglobin Status: Abnormal Collection Time: 12/01/24 3:33 PM Result Value Ref Range Hemoglobin 8.0 (L) 11.2 - 15.7 GM/DL Glucose, Nova Meter Status: Abnormal Collection Time: 12/01/24 4:25 PM Result Value Ref Range POC-GLUCOSE 115 (H) 70 - 110 mg/dL [employer] [id number] Glucose, Nova Meter Status: Abnormal Collection Time: 12/01/24 7:34 PM Result Value Ref Range POC-GLUCOSE 128 (H) 70 - 110 mg/dL [employer] [id number] Hemoglobin Status: Abnormal Collection Time: 12/02/24 12:04 [...] POC-GLUCOSE 115 (H) 70 - 110 mg/dL [employer] [id number] Hemoglobin Status: Abnormal Collection Time: 12/02/24 7:40 [...] Product Identification Red Blood Cells Product Code [id number] Status Information Ready for issue Unit Number [id number] Blood Type 5100 Cross Match Results Compatible Radiology Results (last 3 days) Procedure Component Value Units Date/Time Ultrasound liver [[id number]] Collected: 11/30/24 164 Order Status: Completed Updated: [...] and dictated by SABINE Yang. US paracentesis [[id number]] Collected: 11/30/24 1637 Order Status: Completed Updated: 11/30/241654 Narrative: ULTRASOUND-GUIDED PARACENTESIS HISTORY: Ascites ATTENDING PHYSICIAN: Dr. Haseeb Gil PHYSICIAN UM NURSE: Gabriel Velasco PA-C FINDINGS: After informed consent [...] by Gabriel Velasco PA-C. Ultrasound renal limited [[id number]] Collected: 11/30/24 1646 Order Status: Completed Updated: [...] Ronnell Tom MD XR chest AP portable [[id number]] Collected: 11/30/24 1215 Order Status: Completed Updated: [...] Ext: +++ Pedal edema , no cyanosis TRIMMER SAWYER: Alert, No focal deficit noted grossly Psy: Cooperative Labs: Results for orders placed or performed during the hospital encounter of 11/30/24 (from the past 24 hours) Glucose, Nova Meter Status: None Collection Time: 12/01/24 10:32 AM Result Value Ref Range POC-GLUCOSE 100 70 - 110 mg/dL [employer] [id number] Hemoglobin Status: Abnormal Collection Time: 12/01/24 3:33 PM Result Value Ref Range Hemoglobin 8.0 (L) 11.2 - 15.7 GM/DL Glucose, Nova Meter Status: Abnormal Collection Time: 12/01/24 4:25 PM Result Value Ref Range POC-GLUCOSE 115 (H) 70 - 110 mg/dL [employer] [id number] Glucose, Nova Meter Status: Abnormal Collection Time: 12/01/24 7:34 PM Result Value Ref Range POC-GLUCOSE 128 (H) 70 - 110 mg/dL [employer] [id number] Hemoglobin Status: Abnormal Collection Time: 12/02/24 12:04 [...] POC-GLUCOSE 115 (H) 70 - 110 mg/dL [employer] [id number] Hemoglobin Status: Abnormal Collection Time: 12/02/24 7:40 [...] Ascites ATTENDING PHYSICIAN: Dr. Haseeb Gil PHYSICIAN UM NURSE: Gabriel Velasco PA-C FINDINGS: After informed consent [...] 1960 Age: 64 year(s) Corporate ID Number: [id number] Gender Female Electoral Officer: Giovanna Rock Height: 67 inches [facility] Referring Physician: HUEY HURTADO Weight: 225 pounds [...] 1.35 m/s E/A ratio: 0.97 m/s Volume cqvwhqbeo272.99 LV length: 8.51 cm ml Volume pmxusrjb94.96 ml LVOT diameter: 1.79 cm Normal sized [...] Valve TR velocity: 2.51 m/s TR gradient: 25.78010 mmHg Estimated RAP: 3 mmHg RVSP: 28.12 [...] renal function - No emergent need of KENNEL KEEPER - Monitor H/H and transfuse for Hgb [...] Range POC-GLUCOSE 100 70 - 110 mg/dL [employer] [id number] Hemoglobin Status: Abnormal Collection Time: 12/01/24 3:33 PM Result Value Ref Range Hemoglobin 8.0 (L) 11.2 - 15.7 GM/DL Glucose, Nova Meter Status: Abnormal Collection Time: 12/01/24 4:25 PM Result Value Ref Range POC-GLUCOSE 115 (H) 70 - 110 mg/dL [employer] [id number] Glucose, Nova Meter Status: Abnormal Collection Time: 12/01/24 7:34 PM Result Value Ref Range POC-GLUCOSE 128 (H) 70 - 110 mg/dL [employer] [id number] Hemoglobin Status: Abnormal Collection Time: 12/02/24 12:04 [...] POC-GLUCOSE 115 (H) 70 - 110 mg/dL [employer] [id number] Hemoglobin Status: Abnormal Collection Time: 12/02/24 7:40 [...] Ascites ATTENDING PHYSICIAN: Dr. Haseeb Gil PHYSICIAN UM NURSE: Gabriel Velasco PA-C FINDINGS: After informed consent [...] 1960 Age: 64 year(s) Corporate ID Number: [id number] Gender Female Electoral Officer: Giovanna Pranav Height: 67 inches [facility] Referring Physician: HUEY HURTADO Weight: 225 pounds Interpreting JESSICA RAYMOND MD BMI: 35.24 kg/m^2 Physician: Date of Service: 11/30/2024 Blood Pressure: 118/59 mmHg Room Number: 579 Type of Study: TTE procedure: ECHO COMPLETE (DOPPLER / COLOR) W OR WO CONTRAST. Patient Status: Routine IP [facility]qu[facility] History/Tech Notes: Indication: [...] 1.35 m/s E/A ratio: 0.97 m/s Volume bfcqankpz710.99 LV length: 8.51 cm ml Volume zwupsnei06.96 ml LVOT diameter: 1.79 cm Normal sized [...] Valve TR velocity: 2.51 m/s TR gradient: 25.42152 mmHg Estimated RAP: 3 mmHg RVSP: 28.12 [...] home health pending clinical improvement * Laura Rangel MD - 12/01/2024 6:20 PM EDT Hematology [...] BODY REMOVAL; Surgeon: Scott Daley MD; Location: [facility]; Service: Gastroenterology; Laterality: N/A; Allergies: Patient has [...] Final Chemistry Component Value Date/Time NA 145 12/01/20245 K 4.2 12/01/2024 0405 CL 116 (H) 12/01/2024 0405 CO2 20 (L) 12/01/2024404 BUN 68.3 (H) 12/01/2024404 CREATININE 4.13 (H) 12/01/2024404 Component Value Date/Time CALCIUM 8.0 (L) 12/01/2024404 ALKPHOS 61 12/01/20245 AST 26 12/01/20245 ALT 15 12/01/2024404 BILITOT 0.5 12/01/2024404 Radiology Results (last 7 days) Procedure Component Value Units Date/Time Ultrasound renal limited [[id number]] Collected: 11/30/241645 Order Status: Completed Updated: 11/30/241648 [...] dictated by Ronnell Tom MD Ultrasound liver [[id number]] Collected: 11/30/241642 Order Status: Completed Updated: 11/30/241654 [...] and dictated by SABINE Yang. US paracentesis [[id number]] Collected: 11/30/24 1637 Order Status: Completed Updated: 11/30/24 165 Narrative: ULTRASOUND-GUIDED PARACENTESIS HISTORY: Ascites ATTENDING PHYSICIAN: Dr. Haseeb Gil PHYSICIAN UM NURSE: Gabriel Velasco PA-C FINDINGS: After informed consent [...] Gabriel Velasco PA-C. XR chest AP portable [[id number]] Collected: 11/30/24 1215 Order Status: Completed Updated: [...] by Marielos Sotelo PA-C. US renal complete [[id number]] Order Status: Canceled Assessment Pancytopenia. White blood [...] to follow-up. Signed: Electronically signed by Laura Rangel MD 12/01/2024 6:21 PM EDT * Timothy [...] Range POC-GLUCOSE 102 70 - 110 mg/dL [employer] [id number] Urinalysis, Reflex Microscopic and Culture If Indicated Status: Abnormal Collection Time: 11/30/24 11:35 AM Result Value Ref Range Color, UA Light Yellow Clarity, UA Turbid (A) Clear Specific [place], UA 1.011 1.005 - 1.030 pH, UA [...] Range POC-GLUCOSE 107 70 - 110 mg/dL [employer] [id number] Glucose, Nova Meter Status: None Collection Time: 11/30/24 7:38 PM Result Value Ref Range POC-GLUCOSE 106 70 - 110 mg/dL [employer] [id number] Magnesium Status: Abnormal Collection Time: 12/01/24 4:05 [...] Osmolality Calc 309.8 mOsm/kg CBC - Hemogram ([facility]) Status: Abnormal Collection Time: 12/01/24 4:06 AM [...] AM Result Value Ref Range Issue Date/Time [id number] Product Identification Red Blood Cells Product Code [id number] Status Information Transfused Unit Number [id number] Blood Type 5100 Cross Match Results Compatible Glucose, Nova Meter Status: None Collection Time: 12/01/24 5:37 AM Result Value Ref Range POC-GLUCOSE 107 70 - 110 mg/dL [employer] [id number] Type and Screen Status: None (Preliminary result) Collection Time: 12/01/24 7:08 AM Result Value Ref Range ABO/Rh O Positive Antibody Screen Negative Glucose, Nova Meter Status: None Collection Time: 12/01/24 8:12 AM Result Value Ref Range POC-GLUCOSE 103 70 - 110 mg/dL [employer] [id number] Ultrasound liver Narrative: CLINICAL INDICATION: Abdominal pain. [...] Ascites ATTENDING PHYSICIAN: Dr. Haseeb Gil PHYSICIAN UM NURSE: Gabriel Velasco PA-C FINDINGS: After informed consent [...] 1960 Age: 64 year(s) Corporate ID Number: [id number] Gender Female Electoral Officer: Giovanna Pranav Height: 67 inches [facility] Referring Physician: HUEY HURTADO Weight: 225 pounds [...] 1.35 m/s E/A ratio: 0.97 m/s Volume ikxmzcyve092.99 LV length: 8.51 cm ml Volume kzolrgql21.96 ml LVOT diameter: 1.79 cm Normal sized [...] Valve TR velocity: 2.51 m/s TR gradient: 25.49618 mmHg Estimated RAP: 3 mmHg RVSP: 28.12 [...] Ext: +++ Pedal edema , no cyanosis TRIMMER SAWYER: Alert, No focal deficit noted grossly Psy: Cooperative Labs: Results for orders placed or performed during the hospital encounter of 11/30/24 (from the past 24 hours) Glucose, Nova Meter Status: None Collection Time: 11/30/24 10:46 AM Result Value Ref Range POC-GLUCOSE 102 70 - 110 mg/dL [employer] [id number] Urinalysis, Reflex Microscopic and Culture If Indicated Status: Abnormal Collection Time: 11/30/24 11:35 AM Result Value Ref Range Color, UA Light Yellow Clarity, UA Turbid (A) Clear Specific [place], UA 1.011 1.005 - 1.030 pH, UA [...] Range POC-GLUCOSE 107 70 - 110 mg/dL [employer] [id number] Glucose, Nova Meter Status: None Collection Time: 11/30/24 7:38 PM Result Value Ref Range POC-GLUCOSE 106 70 - 110 mg/dL [employer] [id number] Magnesium Status: Abnormal Collection Time: 12/01/24 4:05 [...] Osmolality Calc 309.8 mOsm/kg CBC - Hemogram (-[facility]) Status: Abnormal Collection Time: 12/01/24 4:06 AM [...] AM Result Value Ref Range Issue Date/Time [id number] Product Identification Red Blood Cells Product Code [id number] Status Information Transfused Unit Number [id number] Blood Type 5100 Cross Match Results Compatible Glucose, Nova Meter Status: None Collection Time: 12/01/24 5:37 AM Result Value Ref Range POC-GLUCOSE 107 70 - 110 mg/dL [employer] [id number] Type and Screen Status: None (Preliminary result) Collection Time: 12/01/24 7:08 AM Result Value Ref Range ABO/Rh O Positive Antibody Screen Negative Glucose, Nova Meter Status: None Collection Time: 12/01/24 8:12 AM Result Value Ref Range POC-GLUCOSE 103 70 - 110 mg/dL [employer] [id number] Ultrasound liver Narrative: CLINICAL INDICATION: Abdominal pain. [...] Ascites ATTENDING PHYSICIAN: Dr. Haseeb Gil PHYSICIAN UM NURSE: Gabriel Velasco PA-C FINDINGS: After informed consent [...] 1960 Age: 64 year(s) Corporate ID Number: [id number] Gender Female Electoral Officer: Giovanna Rock Height: 67 inches [facility] Referring Physician: HUEY HURTADO Weight: 225 pounds [...] 1.35 m/s E/A ratio: 0.97 m/s Volume trztfpyqc490.99 LV length: 8.51 cm ml Volume yzkxjebw61.96 ml LVOT diameter: 1.79 cm Normal sized [...] Valve TR velocity: 2.51 m/s TR gradient: 25.25683 mmHg Estimated RAP: 3 mmHg RVSP: 28.12 [...] renal function - No emergent need of KENNEL KEEPER - Monitor H/H and transfuse for Hgb less than 7.0 Discussed with patient * DAWOOD Pat/Amada - 12/01/2024 8:45 AM EDT Images from the original note were not included. Inpatient Occupational Therapy Attempt to Treat Patient Name: Mary Coronel Birthday: 1960 Date of Attempt: 12/01/2024 Pt off floor for EGD at this time. OT to check back as time allows. Electronically signed by NBA Pat - 12/01/2024 - 1:38 PM EDT * [...] The patient's fine motor coordination is intact. Looczw-fx-wnur: LUE (3) Minimal Impairment: Able to accomplish [...] in chair, to don socks Outcome Measures [facility] Daily Living Functional Assessment How much help [...] (Minimal/Contact guard/Supervision/Setup) 4=None (Modified independent/Independent) The patient's [facility] raw score is 16. The patient currently has 53.32% functional impairment. Clinicians are most likely to recommend inpatient/SNF/[place] [facility] care for patients with scores between 6-17, [...] diabetes, CKD, CAD, arthritis. Patient presented to [facility] with swollen abdomen, abdominal discomfort and bilateral lower extremity pitting edema.Patient's BUN/creatinine elevated, and patient subsequently transferred to [facility] for hepatorenal syndrome evaluation. Admits to [...] Also admits to dark tarry stools recently. Patientalso suffered intermittent altered mental status of the last few days. Patient's niece forced patient to visit [facility] emergency room today she really loves me. States that she lives alone without home support at baseline. States she takes oral Lasix at home at baseline. States over past few days she has doubled home Lasix dosage [...] hyperlipidemia, diabetes, CAD, arthritis. Patient presented to [facility] with swollen abdomen, abdominal discomfort and bilateral lower extremity pitting edema. Patient diagnosed with anasarca, and admitted for hepatorenal/temporary dialysis evaluation. Problems as listed below: [facility] labs reviewed prior to current hospitalization: Hemoglobin 8.5, creatinine 4.6, BNP 26,[address] abdomen/pelvis: Ascites I ordered stat CMP, lactic acid, ammonia, procalcitonin, CBC, mag, PT, PTT, INR CBC at time of admission Anasarca likely secondary to hepatorenal syndrome: - Likely secondary to hepatic/renal dysfunction. IV albumin 25% Q6 x 2 days. Lasix 40 mg IV every 12. CT abdomen/pelvis from [facility] shows ascites. Therefore ordered paracentesis for a.m. [...] history as below. She initially presented to [facility] with swollen abdomen, abdominal discomfort, and bilateral lower extremity pain. Her creatinine was elevated and as a result, she was transferred to [facility] for he patorenal syndrome. Upon arrival [...] BODY REMOVAL; Surgeon: Scott Daley MD; Location: [facility]; Service: Gastroenterology; Laterality: N/A; Allergies: No Known [...] POC-GLUCOSE 134 (H) 70 - 110 mg/dL [employer] [id number] Glucose, Nova Meter Status: Abnormal Collection Time: 12/06/24 7:26 PM Result Value Ref Range POC-GLUCOSE 170 (H) 70 - 110 mg/dL [employer] [id number] CBC - Hemogram ([facility]) Status: Abnormal Collection [...] POC-GLUCOSE 159 (H) 70 - 110 mg/dL [employer] [id number] ECG 12 lead Status: None (In process) Collection Time: 12/07/24 10:29 AM Result Value Ref Range VENTRICULAR RATE EKG/MIN 91 BPM ATRIAL RATE (MCT) 91 BPM [place] Interval 142 ms QRS-INTERVAL (MSEC) 88 ms QT Interval 376 ms QTC Interval 462 ms P [place] 39 degrees R AXIS (MCT) -3 degrees T Wave [place] 4 degrees [place] Diagnosis Normal sinus rhythm Nonspecific T wave [...] 12.0 - 18.0 g/dL PaO2/FIO2 calculated 203.0 [facility] COLLECTION SITE Right Radial Arterial Puncture Yes Blood Gas PT Temperature C 37.0 Sen's Test Acceptable Critical Values Notification Critical Blood gas called to TRAY LORENZ RN . [place] [id number] and confirmed on 12/07/2024 10:51 ABG Number of Draw Attempts 1 FIO2 21.0 Blood Gas Temperature Corrected Results No No Glucose, Nova Meter Status: Abnormal Collection Time: 12/07/24 10:54 AM Result Value Ref Range POC-GLUCOSE 146 (H) 70 - 110 mg/dL [employer] [id number] Radiology Radiology Results (last day) Procedure Component Value Units Date/Time XR chest AP portable [[id number]] Resulted: 12/07/24 1353 Order Status: Sent Updated: 12/07/24 1426 Microbiology: Microbiology Results (last 7 days) Procedure Component Value Units Date/Time Anaerobic Culture [[id number]] Collected: 11/30/24 1603 Order Status: Completed Specimen: Peritoneal Fluid from Body Fluid Updated: 12/05/24 0634 Result No Anaerobic growth Narrative: Specimen Description: peritoneal fluid Blood Culture [[id number]] Collected: 11/30/24 0340 Order Status: Completed Specimen: Blood from Arm, Left Updated: 12/05/24 0501 Result No growth in 5 days Blood Culture [[id number]] Collected: 11/30/24 0342 Order Status: Completed Specimen: Blood from Arm, Right Updated: 12/05/24 0501 Result No growth in 5 days Body Fluid Culture + Gram Stain [[id number]] Collected: 11/30/24 1603 Order Status: Completed Specimen: Peritoneal Fluid from Body Fluid Updated: 12/03/24 0907 Result No growth Gram Stain Result No organisms seen No cells seen Narrative: Specimen Description: peritoneal fluid Body Fluid/CSF - Path Review (SJ) [[id number]] Collected: 11/30/24 160 Order Status: Completed Specimen: Peritoneal Fluid from Body Fluid Updated: 12/03/24 0654 SENT TO PATHOLOGY FOR REVIEW Yes Scan Result Mesothelial cells. MD German 12/02/2024 AFB Culture And Stain [[id number]] Collected: 11/30/24 1603 Order Status: Completed Specimen: Peritoneal Fluid from Body Fluid Updated: 12/01/24 1410 AFB Smear No acid fast bacilli seen Narrative: Specimen Description: peritoneal fluid Glucose, body fluid [[id number]] Collected: 11/30/24 1603 Order Status: Completed Specimen: Body Fluid from Peritoneal Fluid Updated: 12/01/24 0710 Glucose, Body Fluid 107 mg/dL BODY FLUID TYPE Peritoneal Narrative: This test has been modified from the master naval parachutist's instructions and its performance characteristics were determined by the laboratory. The reference intervals and other method performance specifications are unavailable for this test. It is recommended to interpret body fluid concentrations in comparison with the corresponding serum or plasma concentrations and to integrate test results into the clinical context. Protein, body fluid [[id number]] Collected: 11/30/24 1603 Order Status: Completed Specimen: Body Fluid from Peritoneal Fluid Updated: 12/01/24 0710 Protein, Fluid 1.9 g/dL BODY FLUID TYPE Peritoneal Narrative: This test has been modified from the master naval parachutist's instructions and its performance characteristics were determined by the laboratory. The reference intervals and other method performance specifications are unavailable for this test. It is recommended to interpret body fluid concentrations in comparison with the corresponding serum or plasma concentrations and to integrate test results into the clinical context. Urine Culture [[id number]] Collected: 11/30/24 1135 Order Status: Completed Specimen: Urine, Clean Catch Updated: 12/01/24 0649 Result Recollect Specimen - 3 or more organisms suggests contamination Body fluid cell count with differential [[id number]] (Abnormal) Collected: 11/30/241602 Order Status: Completed Specimen: [...] fluids are not defined. DIFFERENTIAL, BODY FLUID [[id number]] Collected: 11/30/241602 Order Status: Completed Specimen: Peritoneal Fluid from Body Fluid Updated: 11/30/242048 Neutrophils Fluid 5 % Lymphocytes Fluid 46 % Unidentified Mononuclear Cells BF 49 % Lactate dehydrogenase (LDH), body fluid [[id number]] Collected: 11/30/241602 Order Status: Completed Specimen: Peritoneal Fluid from Body Fluid Updated: 11/30/241818 LDH, Fluid 71 U/L BODY FLUID TYPE Peritoneal Narrative: This test has been modified from the master naval parachutist's instructions and its performance characteristics were determined by the laboratory. The reference intervals and other method performance specifications are unavailable for this test. It is recommended to interpret body fluid concentrations in comparison with the corresponding serum or plasma concentrations and to integrate test results into the clinical context. Fungus Culture W/ROSA MARIA Or Nimisha Ink [[id number]] Collected: 11/30/241602 Order Status: Completed Specimen: Peritoneal Fluid from Body Fluid Updated: 11/30/24 1754 ROSA MARIA Prep No fungal elements seen Narrative: Specimen Description: peritoneal fluid Total Protein, Body Fluid(SENDOUT) [[id number]] Collected: 11/30/241602 Order Status: Canceled Specimen: Peritoneal Fluid from Body Fluid Updated: 11/30/24 1634 Glucose Body Fluid(SENDOUT) [[id number]] Collected: 11/30/241602 Order Status: Canceled Specimen: Peritoneal Fluid from Body Fluid Updated: 11/30/24 5145 ECHO Normal sized left ventricle. Normal left [...] to continue with albumin/diuretics no indication for KENNEL KEEPER BIPAP 14/8 Fio2 50%,ABG in 2 hrs [...] personally evaluated the patient and performed a fnxr-yf-fxnf diagnostic evaluation on this patient; I have reviewed history, performed physical examination, reviewed laboratory studies. , andreviewed images independent of radiologist. I have actively directed the medical care, formulated assessemnt and plan of care. Patient requires a high complexity of decision making for assessment. 46 minutes pulmonary care clinical time was spent. Voice manager relocation technology (CamStent) is used for dictation of this note and sound-alike words might be erroneously placed despite reviewing the note for accuracy.Errors in dictation may reflect use of voice recognition software and not all errors in manager relocation may have been detectedprior to signing * KENNEY Zaragoza - 12/07/2024 10:29 AM EDTAssociated Order(s): IP CONSULT TO CARE COORDINATION Summary: Pending SNF/Rehab Discharge Plan Progress Note [facility] can offer bed for patient, semi-private room. Address: [facility] [address], [place], [place] [address] - about 56 minutes (36 miles) from patient's address. [facility] started precert, 12/07, 10:33. Insurance will require updated PT/OT notes for rehab. Other SNF options: [facility] (over an hour away from home address), [facility], [facility]. Sister is requesting [...] call Jojo da silva at phone # [phone], received busy tone, unable to reach sister [...] intakes reported. Pt states she ate well [employer] but hasn't had much of an appetite for past 4 days. Requested chicken noodle soup for lunch. Agreeable to ONS TID. Past Medical/Surgical History: Past Medical History: Diagnosis Date Cirrhosis, non-alcoholic (HCC) Diabetes mellitus (HCC) Hypertension Past Surgical History: Procedure Laterality Date ESOPHAGOGASTRODUODENOSCOPY (EGD),REMOVAL FOREIGN BODY N/A 12/01/2024 Procedure: EGD, WITH FOREIGN BODY REMOVAL; Surgeon: Scott Daley MD; Location: [facility]; Service: Gastroenterology; Laterality: N/A; Vitals and Basic [...] with severity: none Energy intake hx: good [employer] (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 She initially presented to [facility] with swollen abdomen, abdominal discomfort, and bilateral lower extremity pain. Her creatinine was elevated and as a result, she was transferred to [facility] for he patorenal syndrome. Upon arrival [...] BODY REMOVAL; Surgeon: Scott Daley MD; Location: [facility]; Service: Gastroenterology; Laterality: N/A; Allergies: No Known [...] POC-GLUCOSE 128 (H) 70 - 110 mg/dL [employer] [id number] Hemoglobin Status: Abnormal Collection Time: 12/02/24 6:03 PM Result Value Ref Range Hemoglobin 9.1 (L) 11.2 - 15.7 GM/DL Glucose, Nova Meter Status: Abnormal Collection Time: 12/02/24 8:06 PM Result Value Ref Range POC-GLUCOSE 144 (H) 70 - 110 mg/dL [employer] [id number] Hemoglobin Status: Abnormal Collection Time: 12/02/24 11:06 PM Result Value Ref Range Hemoglobin 8.9 (L) 11.2 - 15.7 GM/DL Glucose, Nova Meter Status: Abnormal Collection Time: 12/03/24 1:10 AM Result Value Ref Range POC-GLUCOSE 164 (H) 70 - 110 mg/dL [employer]ol[employer] [id number] Glucose, Nova Meter Status: Abnormal Collection Time: 12/03/24 1:12 AM Result Value Ref Range POC-GLUCOSE 168 (H) 70 - 110 mg/dL [employer]ol[employer] [id number] Glucose, Nova Meter Status: Abnormal Collection Time: 12/03/24 5:13 AM Result Value Ref Range POC-GLUCOSE 142 (H) 70 - 110 mg/dL [employer]ol[employer] [id number] Magnesium Status: Normal Collection Time: 12/03/24 7:39 [...] 97 BPM ATRIAL RATE (MCT) 97 BPM [place] Interval 150 ms QRS-INTERVAL (MSEC) 88 ms QT Interval 362 ms QTC Interval 459 ms P [place] 40 degrees R AXIS (MCT) 8 degrees T Wave [place] -8 degrees [place] Diagnosis Normal sinus rhythm Normal ECG No previous ECGs available Glucose, Nova Meter Status: Abnormal Collection Time: 12/03/24 10:45 AM Result Value Ref Range POC-GLUCOSE 156 (H) 70 - 110 mg/dL [employer] [id number] ECG 12 lead Status: None (In process) Collection Time: 12/03/24 2:16 PM Result Value Ref Range VENTRICULAR RATE EKG/MIN 136 BPM ATRIAL RATE (MCT) 73 BPM QRS-INTERVAL (MSEC) 88 ms QT Interval 304 ms QTC Interval 457 ms R AXIS (MCT) -11 degrees T Wave [place] -58 degrees [place] Diagnosis Atrial fibrillation with rapid ventricular response Possible Anterolateral infarct , age undetermined Abnormal ECG When compared with ECG of 03-DEC-2024 10:39, Atrial fibrillation has replaced Sinus rhythm Radiology Radiology Results (last day) Procedure Component Value Units Date/Time CT bone marrow biopsy [[id number]] Collected: 12/02/24 1524 Order Status: Completed Updated: 12/02/24 1556 Narrative: CT GUIDED BONE MARROW ASPIRATION AND CORE BIOPSY. HISTORY: Pancytopenia. ATTENDING RADIOLOGIST: Dr. Hasebe Gil. PHYSICIAN UM NURSE: Sandra Ramsey PA-C PROCEDURE: After informed consent [...] Date/Time Body Fluid Culture + Gram Stain [[id number]] Collected: 11/30/24 1603 Order Status: Completed Specimen: Peritoneal Fluid from Body Fluid Updated: 12/03/24 0907 Result No growth Gram Stain Result No organisms seen No cells seen Narrative: Specimen Description: peritoneal fluid Anaerobic Culture [[id number]] Collected: 11/30/24 1603 Order Status: Completed Specimen: Peritoneal Fluid from Body Fluid Updated: 12/03/24 0842 Result No Anaerobic growth Narrative: Specimen Description: peritoneal fluid Body Fluid/CSF - Path Review () [[id number]] Collected: 11/30/24 160 Order Status: Completed Specimen: Peritoneal Fluid from Body Fluid Updated: 12/03/24 0654 SENT TO PATHOLOGY FOR REVIEW Yes Scan Result Mesothelial cells. MD German 12/02/2024 Blood Culture [[id number]] Collected: 11/30/24 0340 Order Status: Completed Specimen: Blood from Arm, Left Updated: 12/03/24 0501 Result No growth in 3 days Blood Culture [[id number]] Collected: 11/30/24 0342 Order Status: Completed Specimen: Blood from Arm, Right Updated: 12/03/24 0501 Result No growth in 3 days AFB Culture And Stain [[id number]] Collected: 11/30/24 160 Order Status: Completed Specimen: Peritoneal Fluid from Body Fluid Updated: 12/01/24 1410 AFB Smear No acid fast bacilli seen Narrative: Specimen Description: peritoneal fluid Glucose, body fluid [[id number]] Collected: 11/30/24 160 Order Status: Completed Specimen: Body Fluid from Peritoneal Fluid Updated: 12/01/24 0710 Glucose, Body Fluid 107 mg/dL BODY FLUID TYPE Peritoneal Narrative: This test has been modified from the master naval parachutist's instructions and its performance characteristics were determined by the laboratory. The reference intervals and other method performance specifications are unavailable for this test. It is recommended to interpret body fluid concentrations in comparison with the corresponding serum or plasma concentrations and to integrate test results into the clinical context. Protein, body fluid [[id number]] Collected: 11/30/24 160 Order Status: Completed Specimen: Body Fluid from Peritoneal Fluid Updated: 12/01/24 0710 Protein, Fluid 1.9 g/dL BODY FLUID TYPE Peritoneal Narrative: This test has been modified from the master naval parachutist's instructions and its performance characteristics were determined by the laboratory. The reference intervals and other method performance specifications are unavailable for this test. It is recommended to interpret body fluid concentrations in comparison with the corresponding serum or plasma concentrations and to integrate test results into the clinical context. Urine Culture [[id number]] Collected: 11/30/24 1135 Order Status: Completed Specimen: Urine, Clean Catch Updated: 12/01/24 0649 Result Recollect Specimen - 3 or more organisms suggests contamination Body fluid cell count with differential [[id number]] (Abnormal) Collected: 11/30/241602 Order Status: Completed Specimen: [...] fluids are not defined. DIFFERENTIAL, BODY FLUID [[id number]] Collected: 11/30/241602 Order Status: Completed Specimen: Peritoneal Fluid from Body Fluid Updated: 11/30/242048 Neutrophils Fluid 5 % Lymphocytes Fluid 46 % Unidentified Mononuclear Cells BF 49 % Lactate dehydrogenase (LDH), body fluid [[id number]] Collected: 11/30/241602 Order Status: Completed Specimen: Peritoneal Fluid from Body Fluid Updated: 11/30/24 1819 LDH, Fluid 71 U/L BODY FLUID TYPE Peritoneal Narrative: This test has been modified from the master naval parachutist's instructions and its performance characteristics were determined by the laboratory. The reference intervals and other method performance specifications are unavailable for this test. It is recommended to interpret body fluid concentrations in comparison with the corresponding serum or plasma concentrations and to integrate test results into the clinical context. Fungus Culture W/ROSA MARIA Or Nimisha Ink [[id number]] Collected: 11/30/24 160 Order Status: Completed Specimen: Peritoneal Fluid from Body Fluid Updated: 11/30/24 1754 ROSA MARIA Prep No fungal elements seen Narrative: Specimen Description: peritoneal fluid Total Protein, Body Fluid(SENDOUT) [[id number]] Collected: 11/30/24 1603 Order Status: Canceled Specimen: Peritoneal Fluid from Body Fluid Updated: 11/30/24 1634 Glucose Body Fluid(SENDOUT) [[id number]] Collected: 11/30/24 1603 Order Status: Canceled Specimen: Peritoneal Fluid from Body Fluid Updated: 11/30/24 1634 Urine Culture [[id number]] Collected: 11/30/24 1135 Order Status: Canceled Specimen: [...] and lisinopril. Per nephrology there is no KENNEL KEEPER indication at this time. Ultrasound renal on [...] multidisciplinary team including nurse practitioner, nurse, RT, audience development manager, pharmacist, and case management during multidisciplinary round. I Dr.Hazim Jeramy MD, have personally evaluated the patient and performed a [id number] diagnostic evaluation on this patient; I have Obtained history, performed physical examination, reviewed laboratory studies. I have reviewed images independent of radiologist. I have actively directed the medical care, formulated diagnosis, and the plan of care. Patient requires a high complexity of decision making for assessment. Voice manager relocation technology (CamStent) is used for dictation of this note and sound-alike words might be erroneously placed despite reviewing the note for accuracy. Errors in dictation may reflect use of voice recognition software and not all errors in manager relocation may have been detected prior to signing. [...] admitted on: 11/30/2024 1:43 AM. presented to [facility] with swollen abdomen, abdominal discomfort and bilateral lower extremity pitting edema. Patient's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 6:07 AM EDT [facility] Macrocytes 1+ 12/12/2024 6:07 AM EDT [facility] Ovalocytes 1+ 12/12/2024 6:07 AM EDT [facility] Poikilocytes 1+ 12/12/2024 6:07 AM EDT [facility] Blood Venipuncture / Unknown 12/12/2024 3:47 AM EDT 12/12/2024 4:40 AM EDT us Venkatesh Stephen MD LAB BLOOD ORDERABLES Final Resul t [facility] [address] [place] [id number] [phone] * (ABNORMAL) CBC with automated diff (12/12/2024 3:47 AM EDT) WBC 1.4(LL) 4.0 - 10.0 K/ L 12/12/2024 6:07 AM EDT [facility] RBC 2.39(L) 3.93 - 5.22 M/ L 12/12/2024 6:07 AM EDT [facility] Hemoglobin 7.3(L) 11.2 - 15.7 GM/DL 12/12/2024 6:07 AM EDT [facility] Hematocrit 23.2(L) 34.1 - 44.9 % 12/12/2024 6:07 AM EDT [facility] MCV 97(H) 79 - 95 fL 12/12/2024 6:07 AM EDT [facility] MCH 30.5 25.6 - 32.2 pg 12/12/2024 6:07 AM EDT [facility] MCHC 31.5(L) 32.2 - 35.5 GM/DL 12/12/2024 6:07 AM EDT [facility] RDW 16.7(H) 11.7 - 14.4 % 12/12/2024 6:07 AM EDT [facility] Platelets 43(L) 140 - 375 K/CU MM 12/12/2024 6:07 AM EDT [facility] MPV 11.8 9.4 - 12.3 fL 12/12/2024 6:07 AM EDT [facility] % Neutros 57 34 - 71 % 12/12/2024 6:07 AM EDT [facility] % Lymphs 29 19 - 52 % 12/12/2024 6:07 AM EDT [facility] % Monos 13 5 - 13 % 12/12/2024 6:07 AM EDT [facility] % Eos 1 1 - 6 % 12/12/2024 6:07 AM EDT [facility] % Baso 0 0 - 1 % 12/12/2024 6:07 AM EDT [facility] NRBC Absolute <0.01 0 - 0.012 K/ul 12/12/2024 6:07 AM EDT [facility] # Neutros 0.80(L) 1.56 - 6.13 K/ L 12/12/2024 6:07 AM EDT [facility] # Lymphs 0.41(L) 1.18 - 3.74 K/ L 12/12/2024 6:07 AM EDT [facility] # Monos 0.18(L) 0.24 - 0.86 K/ L 12/12/2024 6:07 AM EDT [facility] # Eos <0.03(L) 0.04 - 0.36 K/ L 12/12/2024 6:07 AM EDT [facility] # Baso <0.03 0.01 - 0.08 K/ L 12/12/2024 6:07 AM EDT [facility] Immature Granulocytes-Re lative 0.70(H) 0.01 - 0.43 % 12/12/2024 6:07 AM EDT [facility] # IG <0.03 0.00 - 0.03 K/uL 12/12/2024 6:07 AM EDT [facility] Blood Venipuncture / Unknown 12/12/2024 3:47 AM EDT 12/12/2024 4:40 AM EDT Narrative [facility] - 12/12/2024 6:07 AM EDT [...] MD LAB BLOOD ORDERABLES Final Resul t [facility] [address] [phone] * (ABNORMAL) Basic Metabolic Panel (12/12/2024 3:47 AM EDT) Sodium 144 136 - 145 meq/L 12/12/2024 5:16 AM EDT [facility] Potassium 3.4 3.4 - 5.1 meq/L 12/12/2024 5:16 AM EDT [facility] CO2 26 22 - 29 meq/L 12/12/2024 5:16 AM EDT [facility] Chloride 110 98 - 112 meq/L 12/12/2024 5:16 AM EDT [facility] Glucose 140(H) 82 - 115 mg/dL 12/12/2024 5:16 AM EDT [facility] BUN 70.7(H) 9.8 - 20.1 mg/dL 12/12/2024 5:16 AM EDT [facility] Creatinine 2.28(H) 0.57 - 1.11 mg/dL 12/12/2024 5:16 AM EDT [facility] BUN/Creatinine 31(H) 8 - 20 12/12/2024 5:16 AM EDT [facility] Calcium 8.3(L) 8.4 - 10.2 mg/dL 12/12/2024 5:16 AM EDT [facility] Anion Gap 11 4 - 12 12/12/2024 5:16 AM EDT [facility] eGFR (mL/min/1.73m2) 24(L) >=60 mL/min/1.7 3m2 12/12/2024 5:16 AM EDT [facility] Osmolality Calc 309.9 mOsm/kg 5:16 AM EDT [facility] Blood Venipuncture / Unknown 12/12/2024 3:47 AM EDT 12/12/2024 4:41 AM EDT us Venkatesh Stephen MD LAB BLOOD ORDERABLES Final Resul t [facility] [address] [place] [address], [facility] [phone] * (ABNORMAL) Glucose, Nova Meter (12/11/2024 7:32 PM EDT) POC-GLUCOSE 159(H) 70 - 110 mg/dL 12/11/2024 7:33 PM EDT [facility] Comment: In the event of poor peripheral blood flow, venous or arterial blood should be used due to the potential of erroneous results. Notified Nurse [employer] [phone] 12/11/2024 7:33 PM EDT [facility] Blood WHOLE BLOOD / Unknown 12/11/2024 7:32 PM EDT 12/11/2024 7:33 PM EDT Narrative [facility] - 12/11/2024 7:33 PM EDT [employer] ID is - [id number] [facility] Andry Coffman PA-C POINT OF CARE TEST ORDERABLES Final Result Performing Organization Address [facility] de Phone Number [facility] [address] [phone] * (ABNORMAL) Glucose, Nova Meter (12/11/2024 4:18 PM EDT) POC-GLUCOSE 156(H) 70 - 110 mg/dL 12/11/2024 4:19 PM EDT [facility] Comment: In the event of poor peripheral blood flow, venous or arterial blood should be used due to the potential of erroneous results. Notified Nurse [employer] [phone] 12/11/2024 4:19 PM EDT [facility] Blood WHOLE BLOOD / Unknown 12/11/2024 4:18 PM EDT 12/11/2024 4:19 PM EDT Narrative [facility] - 12/11/2024 4:19 PM EDT [employer] ID is - [id number] [facility] Andry Meghna PA-C POINT OF CARE TEST ORDERABLES Final Result Performing Organization Address [facility] Co al Phone Number [facility] [address] [phone] * (ABNORMAL) Glucose, Nova Meter (12/11/2024 10:43 AM EDT) Pathologist [facility] POC-GLUCOSE 254(H) 70 - 110 mg/dL 12/11/2024 10:45 AM EDT [facility] Comment: In the event of poor peripheral blood flow, venous or arterial blood should be used due to the potential of erroneous results. Notified Nurse [employer] [phone] 12/11/2024 10:45 AM EDT [facility] Blood WHOLE BLOOD / Unknown 12/11/2024 10:43 AM EDT 12/11/2024 10:45 AM EDT Narrative [facility] - 12/11/2024 10:45 AM EDT [employer] ID is - [id number] David Coffman PA-C POINT OF CARE TEST ORDERABLES Final Result [facility] [address] [phone] * ECG 12 lead (12/11/2024 10:29 AM EDT) Pathologist [facility] VENTRICULAR RATE EKG/MIN 85 BPM GE MUSE ATRIAL RATE (MCT) 85 BPM GE MUSE [place] Interval 142 ms GE MUSE QRS-INTERVAL (MSEC) 92 ms GE MUSE QT Interval 400 ms GE MUSE QTC Interval 476 ms GE MUSE P [place] 34 degrees GE MUSE R AXIS (MCT) -10 degrees GE MUSE T Wave [place] 57 degrees GE MUSE [place] Diagnosis Normal sinus rhythm Minimal voltage criteria for LVH, may be normal variant Septal infarct (cited on or before 08-DEC-2024) Abnormal ECG When compared with ECG of 10-DEC-2024 10:07, No significant change was found Confirmed by Rakesh OROZCO, Norm (2019) on 12/13/2024 7:30:41 AM GE MUSE 12/11/2024 10:2 9 AM EDT 12/13/2024 7:30 AM EDT Deysi Foss MD ECG ORDERABLES Final Result GE MUSE * (ABNORMAL) Glucose, Nova Meter (12/11/2024 5:15 AM EDT) POC-GLUCOSE 143(H) 70 - 110 mg/dL 12/11/2024 5:16 AM EDT [facility] Comment: In the event of poor peripheral blood flow, venous or arterial blood should be used due to the potential of erroneous results. Notified Nurse [facility] [employer] [phone] 12/11/2024 5:16 AM EDT [facility] Blood WHOLE BLOOD / Unknown 12/11/2024 5:15 AM EDT 12/11/2024 5:16 AM EDT Narrative [facility] - 12/11/2024 5:16 AM EDT [employer] ID is - [id number] us Venkatesh Stephen MD POINT OF CARE TEST ORDERABLES Fi nal Result Performing Organization Address City/[facility]/ZIP Co de Phone Number [facility] [address] [place] [address] * (ABNORMAL) Basic Metabolic Panel (12/11/2024 3:39 AM EDT) Sodium 146(H) 136 - 145 meq/L 12/11/2024 4:25 AM EDT [facility] Potassium 3.7 3.4 - 5.1 meq/L 12/11/2024 4:25 AM EDT [facility] CO2 26 22 - 29 meq/L 12/11/2024 4:25 AM EDT [facility] Chloride 114(H) 98 - 112 meq/L 12/11/2024 4:25 AM EDT [facility] Glucose 154(H) 82 - 115 mg/dL 12/11/2024 4:25 AM EDT [facility] BUN 74.9(H) 9.8 - 20.1 mg/dL 12/11/2024 4:25 AM EDT [facility] [facility] Creatinine 2.61(H) 0.57 - 1.11 mg/dL 12/11/2024 4:25 AM EDT [facility] BUN/Creatinine 29(H) 8 - 20 12/11/2024 4:25 AM EDT [facility] Calcium 8.2(L) 8.4 - 10.2 mg/dL 12/11/2024 4:25 AM EDT [facility] Anion Gap 10 4 - 12 12/11/2024 4:25 AM EDT [facility] eGFR (mL/min/1.73m2) 20(L) >=60 mL/min/1.7 3m2 12/11/2024 4:25 AM EDT [facility] Osmolality Calc 315.9 mOsm/kg 4:25 AM EDT [facility] Blood Venipuncture / Unknown 12/11/2024 3:39 AM EDT 12/11/2024 3:59 AM EDT us Venkatesh Stephen MD LAB BLOOD ORDERABLES Final Resul t Performing Organization Address City/State/[facility] Co de Phone Number [facility] [address] [place] [address] * (ABNORMAL) CBC with automated diff (12/11/2024 3:36 AM EDT) WBC 1.7(LL) 4.0 - 10.0 K/ L 12/11/2024 4:19 AM EDT [facility] RBC 2.50(L) 3.93 - 5.22 M/ L 12/11/2024 4:19 AM EDT [facility] Hemoglobin 7.7(L) 11.2 - 15.7 GM/DL 12/11/2024 4:19 AM EDT [facility] Hematocrit 24.4(L) 34.1 - 44.9 % 12/11/2024 4:19 AM EDT [facility] MCV 98(H) 79 - 95 fL 12/11/2024 4:19 AM EDT [facility] MCH 30.8 25.6 - 32.2 pg 12/11/2024 4:19 AM EDT [facility] MCHC 31.6(L) 32.2 - 35.5 GM/DL 12/11/2024 4:19 AM EDT [facility] RDW 16.9(H) 11.7 - 14.4 % 12/11/2024 4:19 AM EDT [facility] Platelets 50(L) 140 - 375 K/CU MM 12/11/2024 4:19 AM EDT [facility] MPV 11.7 9.4 - 12.3 fL 12/11/2024 4:19 AM EDT [facility] % Neutros 58 34 - 71 % 12/11/2024 4:19 AM EDT [facility] % Lymphs 27 19 - 52 % 12/11/2024 4:19 AM EDT [facility] % Monos 15(H) 5 - 13 % 12/11/2024 4:19 AM EDT [facility] % Eos 0(L) 1 - 6 % 12/11/2024 4:19 AM EDT [facility] % Baso 1 0 - 1 % 12/11/2024 4:19 AM EDT [facility] NRBC Absolute <0.01 0 - 0.012 K/ul 12/11/2024 4:19 AM EDT [facility] # Neutros 1.00(L) 1.56 - 6.13 K/ L 12/11/2024 4:19 AM EDT [facility] # Lymphs 0.46(L) 1.18 - 3.74 K/ L 12/11/2024 4:19 AM EDT [facility] # Monos 0.26 0.24 - 0.86 K/ L 12/11/2024 4:19 AM EDT [facility] # Eos <0.03(L) 0.04 - 0.36 K/ L 12/11/2024 4:19 AM EDT [facility] # Baso <0.03 0.01 - 0.08 K/ L 12/11/2024 4:19 AM EDT [facility] Immature Granulocytes-Re lative 0.00(L) 0.01 - 0.43 % 12/11/2024 4:19 AM EDT [facility] # IG <0.03 0.00 - 0.03 K/uL 12/11/2024 4:19 AM EDT [facility] Blood Venipuncture / Unknown 12/11/2024 3:36 AM EDT 12/11/2024 3:59 AM EDT Narrative [facility] - 12/11/2024 4:19 AM EDT [...] ORDERABLES Final Resul t Performing Organization Address [facility]/ZIP Co de Phone Number [facility] [address] [phone] * (ABNORMAL) Glucose, Nova Meter (12/10/2024 7:38 PM EDT) POC-GLUCOSE 201(H) 70 - 110 mg/dL 12/10/2024 7:39 PM EDT [facility] Comment: In the event of poor peripheral blood flow, venous or arterial blood should be used due to the potential of erroneous results. Notified Nurse [employer] [id number] 12/10/2024 7:39 PM EDT [facility] Blood WHOLE BLOOD / Unknown 12/10/2024 7:38 PM EDT 12/10/2024 7:39 PM EDT Narrative [facility] - 12/10/2024 7:39 PM EDT [employer] ID is - [id number] us Venkatesh Stephen MD POINT OF CARE TEST ORDERABLES Fi nal Result Performing Organization Address [facility]/ZIP Co de Phone Number [facility] [address] [phone] * (ABNORMAL) Glucose, Nova Meter (12/10/2024 6:32 PM EDT) POC-GLUCOSE 235(H) 70 - 110 mg/dL 12/10/2024 6:34 PM EDT [facility] Comment: In the event of poor peripheral blood flow, venous or arterial blood should be used due to the potential of erroneous results. Notified Nurse [employer] [id number] 12/10/2024 6:34 PM EDT [facility] Blood WHOLE BLOOD / Unknown 12/10/2024 6:32 PM EDT 12/10/2024 6:34 PM EDT Narrative [facility] - 12/10/2024 6:34 PM EDT [employer] ID is - [id number] Venkatesh Stephen MD POINT OF CARE TEST ORDERABLES Fi nal Result Performing Organization Address City/State/[facility] Co de Phone Number [facility] [address] [phone] * (ABNORMAL) Glucose, Nova Meter (12/10/2024 4:56 PM EDT) [facility] POC-GLUCOSE 195(H) 70 - 110 mg/dL 12/10/2024 4:58 PM EDT [facility] Comment: In the event of poor peripheral blood flow, venous or arterial blood should be used due to the potential of erroneous results. Notified Nurse [employer] [phone] 12/10/2024 4:58 PM EDT [facility] Blood WHOLE BLOOD / Unknown 12/10/2024 4:56 PM EDT 12/10/2024 4:58 PM EDT Narrative [facility] - 12/10/2024 4:58 PM EDT [employer] ID is - [id number] us Venkatesh Stephen MD POINT OF CARE TEST ORDERABLES Fi nal Result Performing Organization Address [facility]/ZIP Co de Phone Number [facility] [address] [place] [address], [facility] [phone] * US paracentesis (12/10/2024 11:37 AM EDT) [...] Ascites. ATTENDING PHYSICIAN: Dr. Haseeb Gil PHYSICIAN UM NURSE: Sujit Blackman PA-C FINDINGS: After informed consent [...] Ascites. ATTENDING PHYSICIAN: Dr. Haseeb Gil PHYSICIAN UM NURSE: Sujit Blackman PA-C FINDINGS: After informed consent [...] Haseeb Gil. Transcribed by Sujit Blackman PA-C. us Mary Carmen Mcfadden MD [facility] US ORDERABLES Final Result * ECG 12 lead (12/10/2024 10:07 AM EDT) Pathologist [facility] VENTRICULAR RATE EKG/MIN 90 BPM GE MUSE ATRIAL RATE (MCT) 90 BPM GE MUSE [place] Interval 138 ms GE MUSE QRS-INTERVAL (MSEC) 90 ms GE MUSE QT Interval 396 ms GE MUSE QTC Interval 484 ms GE MUSE P [place] 31 degrees GE MUSE R AXIS (MCT) -10 degrees GE MUSE T Wave [place] 37 degrees GE MUSE [place] Diagnosis Normal sinus rhythm Leftward axis Abnormal ECG When compared with ECG of 09-DEC-2024 12:33, No significant change was found Confirmed by Aleksandr ROBIN STEVE ([id number]) on 12/12/2024 1:22:56 AM GE MUSE 12/10/2024 10:0 7 AM EDT 12/12/2024 1:22 AM EDT Deysi Foss MD ECG ORDERABLES Final Result Performing Organization Address [facility] Co de Phone Number GE MUSE * Magnesium (12/10/2024 9:53 AM EDT) [facility] Magnesium 2.3 1.6 - 2.6 mg/dL 12/10/2024 11:02 AM EDT [facility] Blood Venipuncture / Unknown 12/10/2024 9:53 AM EDT 12/10/2024 10:39 AM EDT Deysi Foss MD LAB BLOOD ORDERABLES Final Resul t Performing Organization Address [facility]/ZIP Co de Phone Number [facility] [address] [phone] * ALT (SGPT) (12/10/2024 9:53 AM EDT) [facility] ALT 12 <=34 U/L 12/10/2024 11:02 AM EDT [facility] Comment: ALT2 reagent used for testing does not contain P5P supplementation and therefore may miss ALT elevations in patients with B6 deficiency. This population may be as high as 10% in the [place], with risk factors including malabsorption, drug interactions, and alcoholic hepatitis. Blood Venipuncture / Unknown 12/10/2024 9:53 AM EDT 12/10/2024 10:39 AM EDT Deysi Foss MD LAB BLOOD ORDERABLES Final Resul t Performing Organization Address [facility] Co de Phone Number [facility] [address] [phone] * (ABNORMAL) AST (SGOT) (12/10/2024 9:53 AM EDT) AST 39(H) 11 - 34 U/L 12/10/2024 11:02 AM EDT [facility] Comment: AST2 reagent used for testing does not contain P5P supplementation and therefore may miss AST elevations in patients with B6 deficiency. This population may be as high as 10% in the [facility], with risk factors including malabsorption, drug interactions, and alcoholic hepatitis. [employer] has become aware of sulfasalazine and sulfapyridine [...] ORDERABLES Final Resul t Performing Organization Address [facility] Co de Phone Number [facility] [address] [phone] * XR chest AP portable (12/10/2024 9:10 [...] Dre Keenan. Transcribed by Haven Henderson PA-C. us Blanka Malagon MD IMG DIAGNOSTIC IMAGING ORDERA BLES Final Result * (ABNORMAL) ABG (12/10/2024 6:42 AM EDT) pH, Arterial 7.30(L) 7.35 - 7.45 12/10/2024 6:51 AM EDT [facility] pCO2, Arterial 49(H) 35 - 45 mm Hg 12/10/2024 6:51 AM EDT [facility] pO2, Arterial 119(H) 80 - 100 mm Hg 12/10/2024 6:51 AM EDT [facility] HCO3, Arterial 24 20 - 26 mmol/L 12/10/2024 6:51 AM EDT [facility] Base Excess, Arterial -2.4(L) -2.0 - 2.0 mmol/L 12/10/2024 6:51 AM EDT [facility] O2 Sat, Arterial >99.2 95.0 - 100.0 % 12/10/2024 6:51 AM EDT [facility] Comment:notified at read-anny k verification CTO2 ARTERIAL 11.9 mmol/L 12/10/2024 6:51 AM EDT [facility] THB ARTERIAL 8.5(L) 12.0 - 18.0 g/dL 12/10/2024 6:51 AM EDT [facility] COLLECTION SITE Left Radial 12/10/2024 6:51 AM EDT [facility] Arterial Puncture Yes 12/10/2024 6:51 AM EDT [facility] Blood Gas O2 Delivery Device Cannula 12/10/2024 6:51 AM EDT [facility] Oxygen Flow Rate 4 12/11/19 6:51 AM EDT [facility] Blood Gas PT Temperature C 37.0 12/10/2024 6:51 AM EDT [facility] Sen's Test Acceptable 12/10/2024 6:51 AM EDT [facility] ABG Number of Draw Attempts 1 12/10/2024 6:51 AM EDT [facility] FIO2 12/10/2024 6:51 AM EDT [facility] Blood Gas Temperature Corrected Results No No 12/10/2024 6:51 AM EDT [facility] Blood, Arterial Collection / Unknown 12/10/2024 6:42 AM EDT 12/10/2024 6:51 AM EDT us Blanka Malagon MD LAB BLOOD ORDERABLES Final Re sult [facility] [address] [phone] * (ABNORMAL) Glucose, Nova Meter (12/10/2024 5:52 AM EDT) POC-GLUCOSE 162(H) 70 - 110 mg/dL 12/10/2024 5:53 AM EDT [facility] Comment: In the event of poor peripheral blood flow, venous or arterial blood should be used due to the potential of erroneous results. Notified Nurse [employer] [id number] 12/10/2024 5:53 AM EDT [facility] Blood WHOLE BLOOD / Unknown 12/10/2024 5:52 AM EDT 12/10/2024 5:53 AM EDT Narrative [facility] - 12/10/2024 5:53 AM EDT [employer] ID is - [id number] us Mary Carmen Mcfadden MD POINT OF CARE TEST ORDERABLES F inal Result Performing Organization Address [facility] Co de Phone Number [facility] [address] [place] [address], [facility] [phone] * (ABNORMAL) Glucose, Nova Meter (12/09/2024 7:30 PM EDT) POC-GLUCOSE 158(H) 70 - 110 mg/dL 12/09/2024 7:31 PM EDT [facility] Comment: In the event of poor peripheral blood flow, venous or arterial blood should be used due to the potential of erroneous results. Notified Nurse [employer] [phone] 12/09/2024 7:31 PM EDT [facility] Blood WHOLE BLOOD / Unknown 12/09/2024 7:30 PM EDT 12/09/2024 7:31 PM EDT Narrative [facility] - 12/09/2024 7:31 PM EDT [employer] ID is - [id number] us Mary Carmen Mcfadden MD POINT OF CARE TEST ORDERABLES F inal Result Performing Organization Address [facility]/ZIP Co de Phone Number [facility] [address] [place] [address], [facility] [phone] * (ABNORMAL) Glucose, Nova Meter (12/09/2024 4:23 PM EDT) POC-GLUCOSE 173(H) 70 - 110 mg/dL 12/09/2024 4:24 PM EDT [facility] Comment: In the event of poor peripheral blood flow, venous or arterial blood should be used due to the potential of erroneous results. Notified Nurse [employer] [phone] 12/09/2024 4:24 PM EDT [facility] Blood WHOLE BLOOD / Unknown 12/09/2024 4:23 PM EDT 12/09/2024 4:24 PM EDT Narrative [facility] - 12/09/2024 4:24 PM EDT [employer] ID is - [id number] us Mary Carmen Mcfadden MD POINT OF CARE TEST ORDERABLES F inal Result Performing Organization Address [facility]/ZIP Co de Phone Number [facility] [address] [phone] * ECG 12 lead (12/09/2024 12:33 PM EDT) VENTRICULAR RATE EKG/MIN 91 BPM GE MUSE ATRIAL RATE (MCT) 91 BPM GE MUSE [place] Interval 140 ms GE MUSE QRS-INTERVAL (MSEC) 88 ms GE MUSE QT Interval 386 ms GE MUSE QTC Interval 474 ms GE MUSE P [place] 44 degrees GE MUSE R AXIS (MCT) -3 degrees GE MUSE T Wave [place] 16 degrees GE MUSE [place] Diagnosis Normal sinus rhythm Minimal voltage criteria for LVH, may be normal variant Septal infarct (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 ([id number]) on 12/09/2024 6:05:19 PM GE MUSE 12/09/2024 12:3 3 PM EDT 12/09/2024 6:05 PM EDT us Deysi Foss MD ECG ORDERABLES Final Result Performing Organization Address [facility] Co de Phone Number GE MUSE * (ABNORMAL) Glucose, Nova Meter (12/09/2024 11:17 AM EDT) POC-GLUCOSE 173(H) 70 - 110 mg/dL 12/09/2024 11:18 AM EDT [facility] Comment: In the event of poor peripheral blood flow, venous or arterial blood should be used due to the potential of erroneous results. Notified Nurse [employer] [phone] 12/09/2024 11:18 AM EDT [facility] Blood WHOLE BLOOD / Unknown 12/09/2024 11:17 AM EDT 12/09/2024 11:18 AM EDT Narrative [facility] - 12/09/2024 11:18 AM EDT [employer] ID is - [id number] Mary Carmen Mcfadden MD POINT OF CARE TEST ORDERABLES F inal Result [facility] [address] [phone] * XR chest AP portable (12/09/2024 7:09 [...] Lizzie Myles. Transcribed by Haven Henderson PA-C. Blanka Malagon MD IMG DIAGNOSTIC IMAGING ORDERA BLES Final Result * (ABNORMAL) ABG (12/09/2024 6:37 AM EDT) pH, Arterial 7.28(L) 7.35 - 7.45 12/09/2024 6:52 AM EDT [facility] pCO2, Arterial 51(H) 35 - 45 mm Hg 12/09/2024 6:52 AM EDT [facility] pO2, Arterial 157(H) 80 - 100 mm Hg 12/09/2024 6:52 AM EDT [facility] HCO3, Arterial 24 20 - 26 mmol/L 12/09/2024 6:52 AM EDT [facility] Base Excess, Arterial -2.6(L) -2.0 - 2.0 mmol/L 12/09/2024 6:52 AM EDT [facility] O2 Sat, Arterial >99.2 95.0 - 100.0 % 12/09/2024 6:52 AM EDT [facility] Comment:[id number] notified PAULINO COFFMAN RN at 12/09/2024 06:51 read-back verification CTO2 ARTERIAL 12.3 mmol/L 12/09/2024 6:52 AM EDT [facility] THB ARTERIAL 8.7(L) 12.0 - 18.0 g/dL 12/09/2024 6:52 AM EDT [facility] COLLECTION SITE Left Radial 12/09/2024 6:52 AM EDT [facility] Arterial Puncture Yes 12/09/2024 6:52 AM EDT [facility] Blood Gas O2 Delivery Device Cannula 12/09/2024 6:52 AM EDT [facility] Oxygen Flow Rate 4 12/10/19 6:52 AM EDT [facility] Blood Gas PT Temperature C 37.0 12/09/2024 6:52 AM EDT [facility] Sen's Test Acceptable 12/09/2024 6:52 AM EDT [facility] Critical Values Notification Critical Blood gas called to DAYANARA MILES . [place] [id number] and confirmed on 12/09/2024 06:51 12/09/2024 6:52 AM EDT [facility] ABG Number of Draw Attempts 1 12/09/2024 6:52 AM EDT [facility] FIO2 12/09/2024 6:52 AM EDT [facility] Blood Gas Temperature Corrected Results No No 12/09/2024 6:52 AM EDT [facility] Blood, Arterial ENTIRE LEFT UPPER ARM / Unknown 12/09/2024 6:37 AM EDT 12/09/2024 6:52 AM EDT us Blanka Malagon MD LAB BLOOD ORDERABLES Final Re sult Performing Organization Address City/[facility]/ZIP Co de Phone Number [facility] [address] [phone] * (ABNORMAL) Glucose, Nova Meter (12/09/2024 5:45 AM EDT) POC-GLUCOSE 148(H) 70 - 110 mg/dL 12/09/2024 5:46 AM EDT [facility] Comment: In the event of poor peripheral blood flow, venous or arterial blood should be used due to the potential of erroneous results. Notified Nurse [employer] [phone] 12/09/2024 5:46 AM EDT [facility] Blood WHOLE BLOOD / Unknown 12/09/2024 5:45 AM EDT 12/09/2024 5:46 AM EDT Narrative [facility] - 12/09/2024 5:46 AM EDT [employer] ID is - [id number] us Mary Carmen Mcfadden MD POINT OF CARE TEST ORDERABLES F inal Result Performing Organization Address City/[facility]/ZIP Co de Phone Number [facility] [address] [phone] * (ABNORMAL) CBC - Hemogram (SJ-BKR) (12/09/2024 3:38 AM EDT) WBC 2.4(L) 4.0 - 10.0 K/ L 12/09/2024 3:59 AM EDT [facility] RBC 2.83(L) 3.93 - 5.22 M/ L 12/09/2024 3:59 AM EDT [facility] Hemoglobin 8.5(L) 11.2 - 15.7 GM/DL 12/09/2024 3:59 AM EDT [facility] Hematocrit 28.0(L) 34.1 - 44.9 % 12/09/2024 3:59 AM EDT [facility] MCV 99(H) 79 - 95 fL 12/09/2024 3:59 AM EDT [facility] MCH 30.0 25.6 - 32.2 pg 12/09/2024 3:59 AM EDT [facility] MCHC 30.4(L) 32.2 - 35.5 GM/DL 12/09/2024 3:59 AM EDT [facility] RDW 17.2(H) 11.7 - 14.4 % 12/09/2024 3:59 AM EDT [facility] Platelets 55(L) 140 - 375 K/CU MM 12/09/2024 3:59 AM EDT [facility] MPV 11.5 9.4 - 12.3 fL 12/09/2024 3:59 AM EDT [facility] Blood Venipuncture / Unknown 12/09/2024 3:38 AM EDT 12/09/2024 3:45 AM EDT us Mary Carmen Mcfadden MD LAB BLOOD ORDERABLES Final Resu lt [facility] [address] [phone] * (ABNORMAL) Basic Metabolic Panel (12/09/2024 3:38 AM EDT) Sodium 148(H) 136 - 145 meq/L 12/09/2024 4:07 AM EDT [facility] Potassium 3.6 3.4 - 5.1 meq/L 12/09/2024 4:07 AM EDT [facility] CO2 23 22 - 29 meq/L 12/09/2024 4:07 AM EDT [facility] Chloride 116(H) 98 - 112 meq/L 12/09/2024 4:07 AM EDT [facility] Glucose 146(H) 82 - 115 mg/dL 12/09/2024 4:07 AM EDT [facility] BUN 77.3(H) 9.8 - 20.1 mg/dL 12/09/2024 4:07 AM EDT [facility] Creatinine 2.82(H) 0.57 - 1.11 mg/dL 12/09/2024 4:07 AM EDT [facility] BUN/Creatinine 27(H) 8 - 20 12/09/2024 4:07 AM EDT [facility] Calcium 8.7 8.4 - 10.2 mg/dL 12/09/2024 4:07 AM EDT [facility] Anion Gap 13(H) 4 - 12 12/09/2024 4:07 AM EDT [facility] eGFR (mL/min/1.73m2) 18(L) >=60 mL/min/1.7 3m2 12/09/2024 4:07 AM EDT [facility] Osmolality Calc 320.0 mOsm/kg 4:07 AM EDT [facility] Blood Venipuncture / Unknown 12/09/2024 3:38 AM EDT 12/09/2024 3:45 AM EDT us Mary Carmen Mcfadden MD LAB BLOOD ORDERABLES Final Resu lt [facility] [address] [phone] * (ABNORMAL) Glucose, Nova Meter (12/08/2024 8:08 PM EDT) POC-GLUCOSE 172(H) 70 - 110 mg/dL 12/08/2024 8:08 PM EDT [facility] Comment: In the event of poor peripheral blood flow, venous or arterial blood should be used due to the potential of erroneous results. Notified Nurse [employer] [id number] 12/08/2024 8:08 PM EDT [facility] Blood WHOLE BLOOD / Unknown 12/08/2024 8:08 PM EDT 12/08/2024 8:08 PM EDT Narrative [facility] - 12/08/2024 8:08 PM EDT [employer] ID is - [id number] Mary Carmen Mcfadden MD POINT OF CARE TEST ORDERABLES F inal Result [facility] [address] [place] [address], [facility] [phone] * (ABNORMAL) Glucose, Nova Meter (12/08/2024 3:34 PM EDT) POC-GLUCOSE 159(H) 70 - 110 mg/dL 12/08/2024 3:36 PM EDT [facility] Comment: In the event of poor peripheral blood flow, venous or arterial blood should be used due to the potential of erroneous results. Notified Nurse [employer] [id number] 12/08/2024 3:36 PM EDT [facility] Blood WHOLE BLOOD / Unknown 12/08/2024 3:34 PM EDT 12/08/2024 3:36 PM EDT Narrative [facility] - 12/08/2024 3:36 PM EDT [employer] ID is - [id number] Mary Carmen Mcfadden MD POINT OF CARE TEST ORDERABLES F inal Result [facility] [address] [place] [address], [facility] [phone] * (ABNORMAL) Glucose, Nova Meter (12/08/2024 10:57 AM EDT) POC-GLUCOSE 191(H) 70 - 110 mg/dL 12/08/2024 10:59 AM EDT [facility] Comment: In the event of poor peripheral blood flow, venous or arterial blood should be used due to the potential of erroneous results. Protocols Followed Notified Nurse [employer] [phone] 12/08/2024 10:59 AM EDT [facility] Blood WHOLE BLOOD / Unknown 12/08/2024 10:57 AM EDT 12/08/2024 10:59 AM EDT Narrative [facility] - 12/08/2024 10:59 AM EDT [employer] Uphol[employer]rer ID is - [id number] Mary Carmen Mcfadden MD POINT OF CARE TEST ORDERABLES F inal Result [facility] [address] [phone] * ECG 12 lead (12/08/2024 10:55 AM EDT) VENTRICULAR RATE EKG/MIN 92 BPM GE MUSE ATRIAL RATE (MCT) 92 BPM GE MUSE [place] Interval 138 ms GE MUSE QRS-INTERVAL (MSEC) 94 ms GE MUSE QT Interval 354 ms GE MUSE QTC Interval 437 ms GE MUSE P [place] 30 degrees GE MUSE R AXIS (MCT) -11 degrees GE MUSE T Wave [place] 37 degrees GE MUSE [place] Diagnosis Normal sinus rhythm Minimal voltage criteria for LVH, may be normal variant Septal infarct , age undetermined Confirmed by DEYSI FOSS M.D. ([id number]) on 12/08/2024 4:27:47 PM GE MUSE 12/08/2024 10:5 5 AM EDT 12/08/2024 4:27 PM EDT Deysi Foss MD ECG ORDERABLES Final Result Performing Organization Address City/[facility]/ZIP Co de Phone Number GE MUSE * (ABNORMAL) Blood gas, arterial (12/08/2024 7:13 AM EDT) pH, Arterial 7.26(L) 7.35 - 7.45 12/08/2024 7:31 AM EDT [facility] pCO2, Arterial 54(H) 35 - 45 mm Hg 12/08/2024 7:31 AM EDT [facility] pO2, Arterial 80 80 - 100 mm Hg 12/08/2024 7:31 AM EDT [facility] HCO3, Arterial 24 20 - 26 mmol/L 12/08/2024 7:31 AM EDT [facility] Base Excess, Arterial -2.9(L) -2.0 - 2.0 mmol/L 12/08/2024 7:31 AM EDT [facility] O2 Sat, Arterial 96.7 95.0 - 100.0 % 12/08/2024 7:31 AM EDT [facility] CTO2 ARTERIAL 11.8 mmol/L 12/08/2024 7:31 AM EDT [facility] THB ARTERIAL 8.8(L) 12.0 - 18.0 g/dL 12/08/2024 7:31 AM EDT [facility] COLLECTION SITE Right Brachial 12/08/2024 7:31 AM EDT [facility] Arterial Puncture Yes 12/08/2024 7:31 AM EDT [facility] Blood Gas O2 Delivery Device Cannula 12/08/2024 7:31 AM EDT [facility] Oxygen Flow Rate 4 12/09/19 7:31 AM EDT [facility] Blood Gas PT Temperature C 37.0 12/08/2024 7:31 AM EDT [facility] Sen's Test Not Applicable 12/09/19 7:31 AM EDT [facility] Critical Values Notification Critical Blood gas called to KNOWN CONDITION . Results acknowledged/r ead back to [id number] and confirmed on 12/08/2024 07:30 12/08/2024 7:31 AM EDT [facility] ABG Number of Draw Attempts 1 12/08/2024 7:31 AM EDT [facility] FIO2 12/08/2024 7:31 AM EDT [facility] Blood Gas Temperature Corrected Results No No 12/08/2024 7:31 AM EDT [facility] Blood, Arterial 12/08/2024 7 :13 AM EDT 12/08/2024 7:31 AM EDT us Mary Carmen Mcfadden MD LAB BLOOD ORDERABLES Final Resu lt [facility] [address] [phone] * (ABNORMAL) Glucose, Nova Meter (12/08/2024 6:08 AM EDT) [facility] POC-GLUCOSE 136(H) 70 - 110 mg/dL 12/08/2024 6:09 AM EDT [facility] Comment: In the event of poor peripheral blood flow, venous or arterial blood should be used due to the potential of erroneous results. Protocols Followed Notified Nurse [employer] [phone] 12/08/2024 6:09 AM EDT [facility] Blood WHOLE BLOOD / Unknown 12/08/2024 6:08 AM EDT 12/08/2024 6:09 AM EDT Narrative [facility] - 12/08/2024 6:09 AM EDT [employer] ID is - [id number] Mary Carmen Mcfadden MD POINT OF CARE TEST ORDERABLES F inal Result [facility] [address] [phone] * (ABNORMAL) CBC - Hemogram (SJ-BKR) (12/08/2024 4:10 AM EDT) [facility] WBC 3.1(L) 4.0 - 10.0 K/ L 12/08/2024 4:53 AM EDT [facility] RBC 2.84(L) 3.93 - 5.22 M/ L 12/08/2024 4:53 AM EDT [facility] Hemoglobin 8.7(L) 11.2 - 15.7 GM/DL 12/08/2024 4:53 AM EDT [facility] Hematocrit 28.2(L) 34.1 - 44.9 % 12/08/2024 4:53 AM EDT [facility] MCV 99(H) 79 - 95 fL 12/08/2024 4:53 AM EDT [facility] MCH 30.6 25.6 - 32.2 pg 12/08/2024 4:53 AM EDT [facility] MCHC 30.9(L) 32.2 - 35.5 GM/DL 12/08/2024 4:53 AM EDT [facility] RDW 17.4(H) 11.7 - 14.4 % 12/08/2024 4:53 AM EDT [facility] Platelets 54(L) 140 - 375 K/CU MM 12/08/2024 4:53 AM EDT [facility] MPV 11.2 9.4 - 12.3 fL 12/08/2024 4:53 AM EDT [facility] Blood Venipuncture / Unknown 12/08/2024 4:10 AM EDT 12/08/2024 4:37 AM EDT us Mary Carmen Mcfadden MD LAB BLOOD ORDERABLES Final Resu lt [facility] [address] [place] [address] * (ABNORMAL) Basic Metabolic Panel (12/08/2024 4:10 AM EDT) Sodium 149(H) 136 - 145 meq/L 12/08/2024 5:22 AM EDT [facility] Potassium 3.6 3.4 - 5.1 meq/L 12/08/2024 5:22 AM EDT [facility] CO2 23 22 - 29 meq/L 12/08/2024 5:22 AM EDT [facility] Chloride 116(H) 98 - 112 meq/L 12/08/2024 5:22 AM EDT [facility] Glucose 160(H) 82 - 115 mg/dL 12/08/2024 5:22 AM EDT [facility] BUN 76.4(H) 9.8 - 20.1 mg/dL 12/08/2024 5:22 AM EDT [facility] Creatinine 2.92(H) 0.57 - 1.11 mg/dL 12/08/2024 5:22 AM EDT [facility] BUN/Creatinine 26(H) 8 - 20 12/08/2024 5:22 AM EDT [facility] Calcium 8.7 8.4 - 10.2 mg/dL 12/08/2024 5:22 AM EDT [facility] Anion Gap 14(H) 4 - 12 12/08/2024 5:22 AM EDT [facility] eGFR (mL/min/1.73m2) 18(L) >=60 mL/min/1.7 3m2 12/08/2024 5:22 AM EDT [facility] Osmolality Calc 322.3 mOsm/kg 5:22 AM EDT [facility] Blood Venipuncture / Unknown 12/08/2024 4:10 AM EDT 12/08/2024 4:40 AM EDT us Mary Carmen Mcfadden MD LAB BLOOD ORDERABLES Final Resu lt Performing Organization Address [facility] de Phone Number [facility] [address] [phone] * (ABNORMAL) Glucose, Nova Meter (12/07/2024 7:54 PM EDT) POC-GLUCOSE 164(H) 70 - 110 mg/dL 12/07/2024 7:55 PM EDT [facility] Comment: In the event of poor peripheral blood flow, venous or arterial blood should be used due to the potential of erroneous results. Protocols Followed Notified Nurse [employer] [phone] 12/07/2024 7:55 PM EDT [facility] Blood WHOLE BLOOD / Unknown 12/07/2024 7:54 PM EDT 12/07/2024 7:55 PM EDT Narrative [facility] - 12/07/2024 7:55 PM EDT [employer] ID is - [id number] us Mary Carmen Mcfadden MD POINT OF CARE TEST ORDERABLES F inal Result Performing Organization Address [facility] Co de Phone Number [facility] [address] [phone] * (ABNORMAL) ABG (12/07/2024 4:21 PM EDT) pH, Arterial 7.29(L) 7.35 - 7.45 12/07/2024 4:43 PM EDT [facility] pCO2, Arterial 50(H) 35 - 45 mm Hg 12/07/2024 4:43 PM EDT [facility] pO2, Arterial 179(H) 80 - 100 mm Hg 12/07/2024 4:43 PM EDT [facility] HCO3, Arterial 24 20 - 26 mmol/L 12/07/2024 4:43 PM EDT [facility] Base Excess, Arterial -2.3(L) -2.0 - 2.0 mmol/L 12/07/2024 4:43 PM EDT [facility] O2 Sat, Arterial >100.0(H) 95.0 - 100.0 % 12/07/2024 4:43 PM EDT [facility] Comment:[id number] notified MORRIS LORENZ RN at 12/07/2024 16:42 read-back verification CTO2 ARTERIAL 12.0 mmol/L 12/07/2024 4:43 PM T [facility] THB ARTERIAL 8.4(L) 12.0 - 18.0 g/dL 12/07/2024 4:43 PM T [facility] PaO2/FIO2 calculated 359.0 12/07/2024 4:43 PM T [facility] COLLECTION SITE Right Brachial 12/07/2024 4:43 PM T [facility] Arterial Puncture Yes 12/07/2024 4:43 PM EDT [facility] Blood Gas O2 Delivery Device NIV 12/07/2024 4:43 PM T [facility] Blood Gas PT Temperature C 37.0 12/07/2024 4:43 PM T [facility] Sen's Test Not Applicable 12/08/19 4:43 PM EDT [facility] Critical Values Notification Critical Blood gas called to SEB LORENZ RN . Results acknowledged/r ead back to [id number] and confirmed on 12/07/2024 16:42 12/07/2024 4:43 PM EDT [facility] ABG Number of Draw Attempts 2 12/07/2024 4:43 PM EDT [facility] Set Rate 16.0 12/07/2024 4:43 PM EDT [facility] IPAP 10 12/07/2024 4:43 PM EDT [facility] EPAP 6 12/07/2024 4:43 PM EDT [facility] FIO2 50.0 12/07/2024 4:43 PM EDT [facility] Blood Gas Temperature Corrected Results No No 12/07/2024 4:43 PM EDT [facility] Blood, Arterial 12/07/2024 4 :21 PM EDT 12/07/2024 4:43 PM EDT us Blanka Malagon MD LAB BLOOD ORDERABLES Final Re sult Performing Organization Address [facility] Co de Phone Number [facility] [address] [phone] * (ABNORMAL) Glucose, Nova Meter (12/07/2024 3:39 PM EDT) [facility] POC-GLUCOSE 159(H) 70 - 110 mg/dL 12/07/2024 3:41 PM EDT [facility] Comment: In the event of poor peripheral blood flow, venous or arterial blood should be used due to the potential of erroneous results. Notified Nurse [employer] [phone] 12/07/2024 3:41 PM EDT [facility] Blood WHOLE BLOOD / Unknown 12/07/2024 3:39 PM EDT 12/07/2024 3:41 PM EDT Narrative [facility] - 12/07/2024 3:41 PM EDT [employer] Uphol[employer] ID is - [id number] us Mary Carmen Mcfadden MD POINT OF CARE TEST ORDERABLES F inal Result Performing Organization Address [facility]/ZIP Co de Phone Number [facility] [address] [phone] * XR chest AP portable (12/07/2024 2:25 [...] 7.35 - 7.45 12/07/2024 3:27 PM EDT [facility] pCO2, Arterial 50(H) 35 - 45 mm Hg 12/07/2024 3:27 PM EDT [facility] pO2, Arterial 58(L) 80 - 100 mm Hg 12/07/2024 3:27 PM EDT [facility] HCO3, Arterial 24 20 - 26 mmol/L 12/07/2024 3:27 PM EDT [facility] Base Excess, Arterial -3.3(L) -2.0 - 2.0 mmol/L 12/07/2024 3:27 PM EDT [facility] O2 Sat, Arterial 91.3(L) 95.0 - 100.0 % 12/07/2024 3:27 PM EDT [facility] CTO2 ARTERIAL 11.2 mmol/L 12/07/2024 3:27 PM EDT [facility] THB ARTERIAL 8.9(L) 12.0 - 18.0 g/dL 12/07/2024 3:27 PM EDT [facility] COLLECTION SITE Right Radial 12/07/2024 3:27 PM EDT [facility] Arterial Puncture Yes 12/07/2024 3:27 PM EDT [facility] Blood Gas O2 Delivery Device Cannula 12/07/2024 3:27 PM EDT [facility] Oxygen Flow Rate 2 12/07/2024 3:27 PM EDT [facility] Blood Gas PT Temperature C 37.0 12/07/2024 3:27 PM EDT [facility] Sen's Test Unacceptable 12/07/2024 3:27 PM EDT [facility] Vent Mode Other 12/07/2024 3:27 PM EDT [facility] Critical Values Notification Critical Blood gas called to DR MALAGON . [place] [id number] and confirmed on 12/07/2024 14:14 12/07/2024 3:27 PM EDT [facility] ABG Number of Draw Attempts 1 12/07/2024 3:27 PM EDT [facility] Performed by: CD 12/07/2024 3:27 PM EDT [facility] FIO2 12/07/2024 3:27 PM EDT [facility] Blood Gas Temperature Corrected Results No No 12/07/2024 3:27 PM EDT [facility] Blood, Arterial 12/07/2024 2 :02 PM EDT 12/07/2024 2:14 PM EDT us Mary Carmen Mcfadden MD LAB BLOOD ORDERABLES Final Resu lt [facility] [address] [phone] * (ABNORMAL) Glucose, Nova Meter (12/07/2024 10:54 AM EDT) [facility] POC-GLUCOSE 146(H) 70 - 110 mg/dL 12/07/2024 10:56 AM EDT [facility] Comment: In the event of poor peripheral blood flow, venous or arterial blood should be used due to the potential of erroneous results. Notified Nurse [employer] [phone] 12/07/2024 10:56 AM EDT [facility] Blood WHOLE BLOOD / Unknown 12/07/2024 10:54 AM EDT 12/07/2024 10:56 AM EDT Narrative [facility] - 12/07/2024 10:56 AM EDT [employer] ID is - [id number] Mary Carmen Mcfadden MD POINT OF CARE TEST ORDERABLES F inal Result [facility] [address] [phone] * (ABNORMAL) Blood gas, arterial (12/07/2024 10:36 AM EDT) [facility] pH, Arterial 7.26(L) 7.35 - 7.45 12/07/2024 1:50 PM EDT [facility] pCO2, Arterial 50(H) 35 - 45 mm Hg 12/07/2024 1:50 PM EDT [facility] pO2, Arterial 43(LL) 80 - 100 mm Hg 12/07/2024 1:50 PM EDT [facility] HCO3, Arterial 22 20 - 26 mmol/L 12/07/2024 1:50 PM EDT [facility] Base Excess, Arterial -4.7(L) -2.0 - 2.0 mmol/L 12/07/2024 1:50 PM EDT [facility] O2 Sat, Arterial 80.4(L) 95.0 - 100.0 % 12/07/2024 1:50 PM EDT [facility] Comment:[id number] notified TRAY LORENZ RN at 12/07/2024 10:51 read-back verification CTO2 ARTERIAL 9.4 mmol/L 12/07/2024 1:50 PM EDT [facility] THB ARTERIAL 8.5(L) 12.0 - 18.0 g/dL 12/07/2024 1:50 PM EDT [facility] PaO2/FIO2 calculated 203.0 12/07/2024 1:50 PM EDT [facility] COLLECTION SITE Right Radial 12/07/2024 1:50 PM EDT [facility] Arterial Puncture Yes 12/07/2024 1:50 PM EDT [facility] Blood Gas PT Temperature C 37.0 12/07/2024 1:50 PM EDT [facility] Sen's Test Acceptable 12/07/2024 1:50 PM EDT [facility] Critical Values Notification Critical Blood gas called to TRAY LORENZ RN . [place] [id number] and confirmed on 12/07/2024 10:51 12/07/2024 1:50 PM EDT [facility] ABG Number of Draw Attempts 1 12/07/2024 1:50 PM EDT [facility] FIO2 21.0 12/07/2024 1:50 PM EDT [facility] Blood Gas Temperature Corrected Results No No 12/07/2024 1:50 PM EDT [facility] Blood, Arterial 12/07/2024 1 0:36 AM EDT 12/07/2024 1:50 PM EDT us Mary Carmen Mcfadden MD LAB BLOOD ORDERABLES Final Resu lt [facility] [address] [place] [address] * ECG 12 lead (12/07/2024 10:29 AM EDT) VENTRICULAR RATE EKG/MIN 91 BPM GE MUSE ATRIAL RATE (MCT) 91 BPM GE MUSE [place] Interval 142 ms GE MUSE QRS-INTERVAL (MSEC) 88 ms GE MUSE QT Interval 376 ms GE MUSE QTC Interval 462 ms GE MUSE P [place] 39 degrees GE MUSE R AXIS (MCT) -3 degrees GE MUSE T Wave [place] 4 degrees GE MUSE [place] Diagnosis Normal sinus rhythm Nonspecific T wave abnormality Abnormal ECG When compared with ECG of 06-DEC-2024 13:16, No significant change was found Confirmed by DEYSI FOSS M.D. ([id number]) on 12/07/2024 7:36:17 PM GE MUSE 12/07/2024 10:2 9 AM EDT 12/07/2024 7:36 PM EDT Mary Carmen Mcfadden MD ECG ORDERABLES Final Result Performing Organization Address City/[facility]/ZIP Co de Phone Number GE MUSE * (ABNORMAL) Glucose, Nova Meter (12/07/2024 5:51 AM EDT) POC-GLUCOSE 159(H) 70 - 110 mg/dL 12/07/2024 5:52 AM EDT [facility] Comment: In the event of poor peripheral blood flow, venous or arterial blood should be used due to the potential of erroneous results. Notified Nurse [employer] [phone] 12/07/2024 5:52 AM EDT [facility] Blood WHOLE BLOOD / Unknown 12/07/2024 5:51 AM EDT 12/07/2024 5:52 AM EDT Narrative [facility] - 12/07/2024 5:52 AM EDT [employer] ID is - [id number] Mary Carmen Mcfadden MD POINT OF CARE TEST ORDERABLES F inal Result Performing Organization Address [facility] Co de Phone Number [facility] [address] [phone] * Erythropoietin(SENDOUT) (12/07/2024 3:59 AM EDT) Erythropoietin 19 4 - 27 mU/mL 12/08/2024 2:30 PM EDT [employer] Comment: INTERPRETIVE INFORMATION: Erythropoietin Normal serum concentrations [...] may benefit from therapy with recombinant EPO ([facility] [id number]). Performed By: [employer] [address] [place] [address] Regional Sales Coordinator: Lalo Mortensen MD, PhD CLIA Number: [id number] Blood Venipuncture / Unknown 12/07/2024 3:59 AM EDT 12/07/2024 4:11 AM EDT us Ariel Mills MD LAB BLOOD ORDERABLES Final Res ult Performing Organization Address City/[facility] Co de Phone Number [employer] [address] [place] [address], [facility] [phone] * Ammonia (12/07/2024 3:59 AM EDT) [facility] Ammonia 44 18 - 72 mol/L 12/07/2024 4:37 AM EDT [facility] Blood Venipuncture / Unknown 12/07/2024 3:59 AM EDT 12/07/2024 4:22 AM EDT Timothy Bai MD LAB BLOOD ORDERABLES Final Result [facility] [address] [place] [phone] * (ABNORMAL) Comprehensive Metabolic Panel (12/07/2024 3:59 AM EDT) Sodium 146(H) 136 - 145 meq/L 12/07/2024 4:52 AM EDT [facility] Potassium 3.8 3.4 - 5.1 meq/L 12/07/2024 4:52 AM EDT [facility] Chloride 118(H) 98 - 112 meq/L 12/07/2024 4:52 AM EDT [facility] CO2 20(L) 22 - 29 meq/L 12/07/2024 4:52 AM EDT [facility] Calcium 8.4 8.4 - 10.2 mg/dL 12/07/2024 4:52 AM EDT [facility] Glucose 166(H) 82 - 115 mg/dL 12/07/2024 4:52 AM EDT [facility] BUN 72.9(H) 9.8 - 20.1 mg/dL 12/07/2024 4:52 AM EDT [facility] Creatinine 3.13(H) 0.57 - 1.11 mg/dL 12/07/2024 4:52 AM EDT [facility] BUN/Creatinine 23(H) 8 - 20 12/07/2024 4:52 AM EDT [facility] eGFR (mL/min/1.73m2) 16(L) >=60 mL/min/1. 73m2 12/07/2024 4:52 AM EDT [facility] Albumin 4.1 3.5 - 5.0 g/dL 12/07/2024 4:52 AM EDT [facility] Alkaline Phosphatase 48 40 - 150 U/L 12/07/2024 4:52 AM EDT [facility] ALT 9 <=34 U/L 12/07/2024 4:52 AM EDT [facility] Comment: ALT2 reagent used for testing does not contain P5P supplementation and therefore may miss ALT elevations in patients with B6 deficiency. This population may be as high as 10% in the [place], with risk factors including malabsorption, drug interactions, and alcoholic hepatitis. AST 24 11 - 34 U/L 12/07/2024 4:52 AM EDT [facility] Comment: AST2 reagent used for testing does not contain P5P supplementation and therefore may miss AST elevations in patients with B6 deficiency. This population may be as high as 10% in the [place], with risk factors including malabsorption, drug interactions, and alcoholic hepatitis. Total Bilirubin 0.9 0.2 - 1.2 mg/dL 12/07/2024 4:52 AM EDT [facility] Protein, Total 6.4 6.4 - 8.3 g/dL 12/07/2024 4:52 AM EDT [facility] Globulin 2.3(L) 2.5 - 4.1 g/dL 12/07/2024 4:52 AM EDT [facility] Anion Gap 12 4 - 12 12/07/2024 4:52 AM EDT [facility] A/G Ratio 1.8 0.7 - 1.9 12/07/2024 4:52 AM EDT [facility] Osmolality Calc 315.8 mOsm/kg 4:52 AM EDT [facility] Blood Venipuncture / Unknown 12/07/2024 3:59 AM EDT 12/07/2024 4:09 AM EDT Timothy Bai MD LAB BLOOD ORDERABLES Final Result [facility] [address] [phone] * Magnesium (12/07/2024 3:59 AM EDT) Magnesium 2.4 1.6 - 2.6 mg/dL 12/07/2024 4:52 AM EDT [facility] Blood Venipuncture / Unknown 12/07/2024 3:59 AM EDT 12/07/2024 4:09 AM EDT Timothy Bai MD LAB BLOOD ORDERABLES Final Result [facility] [address] [phone] * (ABNORMAL) CBC - Hemogram (SJ-[id number]) (12/07/2024 3:59 AM EDT) WBC 3.5(L) 4.0 - 10.0 K/ L 12/07/2024 4:31 AM EDT [facility] RBC 2.58(L) 3.93 - 5.22 M/ L 12/07/2024 4:31 AM EDT [facility] Hemoglobin 7.9(L) 11.2 - 15.7 GM/DL 12/07/2024 4:31 AM EDT [facility] [facility] Hematocrit 25.6(L) 34.1 - 44.9 % 12/07/2024 4:31 AM EDT [facility] MCV 99(H) 79 - 95 fL 12/07/2024 4:31 AM EDT [facility] MCH 30.6 25.6 - 32.2 pg 12/07/2024 4:31 AM EDT [facility] MCHC 30.9(L) 32.2 - 35.5 GM/DL 12/07/2024 4:31 AM EDT [facility] RDW 17.4(H) 11.7 - 14.4 % 12/07/2024 4:31 AM EDT [facility] Platelets 54(L) 140 - 375 K/CU MM 12/07/2024 4:31 AM EDT [facility] MPV 12.2 9.4 - 12.3 fL 12/07/2024 4:31 AM EDT [facility] Blood Venipuncture / Unknown 12/07/2024 3:59 AM EDT 12/07/2024 4:09 AM EDT us Timothy Bai MD LAB BLOOD ORDERABLES Final Result Performing Organization Address [facility]/State/ZIP Co de Phone Number [facility] [address] [phone] * (ABNORMAL) Glucose, Nova Meter (12/06/2024 7:26 PM EDT) POC-GLUCOSE 170(H) 70 - 110 mg/dL 12/06/2024 7:27 PM EDT [facility] Comment: In the event of poor peripheral blood flow, venous or arterial blood should be used due to the potential of erroneous results. Notified Nurse [employer] [id number] 12/06/2024 7:27 PM EDT [facility] Blood WHOLE BLOOD / Unknown 12/06/2024 7:26 PM EDT 12/06/2024 7:27 PM EDT Narrative [facility] - 12/06/2024 7:27 PM EDT [employer] ID is - [id number] Mary Carmen Mcfadden MD POINT OF CARE TEST ORDERABLES F inal Result Performing Organization Address [facility] Co de Phone Number [facility] [address] [place] [address] * (ABNORMAL) Glucose, Nova Meter (12/06/2024 4:06 PM EDT) POC-GLUCOSE 134(H) 70 - 110 mg/dL 12/06/2024 4:07 PM EDT [facility] Comment: In the event of poor peripheral blood flow, venous or arterial blood should be used due to the potential of erroneous results. Notified Nurse [employer] [id number] 12/06/2024 4:07 PM EDT [facility] Blood WHOLE BLOOD / Unknown 12/06/2024 4:06 PM EDT 12/06/2024 4:07 PM EDT Narrative [facility] - 12/06/2024 4:07 PM EDT [employer] ID is - [id number] Mary Carmen Mcfadden MD POINT OF CARE TEST ORDERABLES F inal Result Performing Organization Address [facility] Co de Phone Number [facility] [address] [phone] * ECG 12 lead (12/06/2024 1:16 PM EDT) VENTRICULAR RATE EKG/MIN 90 BPM GE MUSE ATRIAL RATE (MCT) 90 BPM GE MUSE [place] Interval 142 ms GE MUSE QRS-INTERVAL (MSEC) 92 ms GE MUSE QT Interval 378 ms GE MUSE QTC Interval 462 ms GE MUSE P [place] 28 degrees GE MUSE R AXIS (MCT) -4 degrees GE MUSE T Wave [place] 21 degrees GE MUSE [place] Diagnosis Normal sinus rhythm Septal infarct , age undetermined Confirmed by DEYSI FOSS M.D. ([id number]) on 12/07/2024 7:40:21 PM GE MUSE 12/06/2024 1:16 PM EDT 12/07/2024 7:40 PM EDT us Deysi Foss MD ECG ORDERABLES Final Result Performing Organization Address City/[facility]/ZIP Co de Phone Number GE MUSE * (ABNORMAL) Glucose, Nova Meter (12/06/2024 10:36 AM EDT) Pathologist [facility] POC-GLUCOSE 150(H) 70 - 110 mg/dL 12/06/2024 10:37 AM EDT [facility] Comment: In the event of poor peripheral blood flow, venous or arterial blood should be used due to the potential of erroneous results. Notified Nurse [employer] [id number] 12/06/2024 10:37 AM EDT [facility] Blood WHOLE BLOOD / Unknown 12/06/2024 10:36 AM EDT 12/06/2024 10:37 AM EDT Narrative [facility] - 12/06/2024 10:37 AM EDT [employer] ID is - [id number] us Mary Carmen Mcfadden MD POINT OF CARE TEST ORDERABLES F inal Result [facility] [address] [phone] * XR chest AP portable (12/06/2024 7:34 [...] - 110 mg/dL 12/06/2024 5:27 AM EDT [facility] Comment: In the event of poor peripheral blood flow, venous or arterial blood should be used due to the potential of erroneous results. Notified Nurse [employer] [id number] 12/06/2024 5:27 AM EDT [facility] Blood WHOLE BLOOD / Unknown 12/06/2024 5:26 AM EDT 12/06/2024 5:27 AM EDT Narrative [facility] - 12/06/2024 5:27 AM EDT [employer] ID is - [id number] us Timothy Bai MD POINT OF CARE TEST ORDERAB LES Final Result [facility] [address] [phone] * (ABNORMAL) Ferritin (12/06/2024 3:13 AM EDT) Ferritin 256.82(H) 4.63 - 204.00 ng/mL 12/06/2024 8:25 AM EDT [facility] Blood Venipuncture / Unknown 12/06/2024 3:13 AM EDT 12/06/2024 3:50 AM EDT us Ariel Mills MD LAB BLOOD ORDERABLES Final Res ult [facility] [address] [phone] * Ammonia (12/06/2024 3:13 AM EDT) Ammonia 47 18 - 72 mol/L 12/06/2024 4:48 AM EDT [facility] Blood Venipuncture / Unknown 12/06/2024 3:13 AM EDT 12/06/2024 3:51 AM EDT us Timothy Bai MD LAB BLOOD ORDERABLES Final Result Performing Organization Address City/[facility] Co de Phone Number [facility] [address] [phone] * (ABNORMAL) Comprehensive Metabolic Panel (12/06/2024 3:13 AM EDT) Sodium 146(H) 136 - 145 meq/L 12/06/2024 4:26 AM EDT [facility] Potassium 3.9 3.4 - 5.1 meq/L 12/06/2024 4:26 AM EDT [facility] Chloride 116(H) 98 - 112 meq/L 12/06/2024 4:26 AM EDT [facility] CO2 20(L) 22 - 29 meq/L 12/06/2024 4:26 AM EDT [facility] Calcium 8.6 8.4 - 10.2 mg/dL 12/06/2024 4:26 AM [facility] Glucose 149(H) 82 - 115 mg/dL 12/06/2024 4:26 AM [facility] BUN 63.3(H) 9.8 - 20.1 mg/dL 12/06/2024 4:26 AM [facility] Creatinine 3.37(H) 0.57 - 1.11 mg/dL 12/06/2024 4:26 AM [facility] BUN/Creatinine 19 8 - 20 12/06/2024 4:26 AM [facility] eGFR (mL/min/1.73m2) 15(L) >=60 mL/min/1. 73m2 12/06/2024 4:26 AM [facility] Albumin 4.6 3.5 - 5.0 g/dL 12/06/2024 4:26 AM [facility] Alkaline Phosphatase 47 40 - 150 U/L 12/06/2024 4:26 AM [facility] ALT 11 <=34 U/L 12/06/2024 4:26 AM [facility] Comment: ALT2 reagent used for testing does not contain P5P supplementation and therefore may miss ALT elevations in patients with B6 deficiency. This population may be as high as 10% in the [place], with risk factors including malabsorption, drug interactions, and alcoholic hepatitis. AST 21 11 - 34 U/L 12/06/2024 4:26 AM [facility] Comment: AST2 reagent used for testing does not contain P5P supplementation and therefore may miss AST elevations in patients with B6 deficiency. This population may be as high as 10% in the [place], with risk factors including malabsorption, drug interactions, and alcoholic hepatitis. Total Bilirubin 1.2 0.2 - 1.2 mg/dL 12/06/2024 4:26 AM [facility] Protein, Total 7.0 6.4 - 8.3 g/dL 12/06/2024 4:26 AM [facility] Globulin 2.4(L) 2.5 - 4.1 g/dL 12/06/2024 4:26 AM [facility] Anion Gap 14(H) 4 - 12 12/06/2024 4:26 AM EDT [facility] A/G Ratio 1.9 0.7 - 1.9 12/06/2024 4:26 AM EDT [facility] Osmolality Calc 311.4 mOsm/kg 4:26 AM EDT [facility] Blood Venipuncture / Unknown 12/06/2024 3:13 AM EDT 12/06/2024 3:50 AM EDT Timothy Bai MD LAB BLOOD ORDERABLES Final Result Performing Organization Address [facility]/ZIP Co de Phone Number [facility] [address] [phone] * Magnesium (12/06/2024 3:13 AM EDT) Magnesium 2.4 1.6 - 2.6 mg/dL 12/06/2024 4:26 AM EDT [facility] Blood Venipuncture / Unknown 12/06/2024 3:13 AM EDT 12/06/2024 3:50 AM EDT Timothy Bai MD LAB BLOOD ORDERABLES Final Result Performing Organization Address City/[facility] Co de Phone Number [facility] [address] [phone] * (ABNORMAL) CBC - Hemogram (SJ-BKR) (12/06/2024 3:13 AM EDT) WBC 7.0 4.0 - 10.0 K/ L 12/06/2024 4:10 AM EDT [facility] RBC 2.83(L) 3.93 - 5.22 M/ L 12/06/2024 4:10 AM EDT [facility] Hemoglobin 8.7(L) 11.2 - 15.7 GM/DL 12/06/2024 4:10 AM EDT [facility] Hematocrit 28.2(L) 34.1 - 44.9 % 12/06/2024 4:10 AM EDT [facility] MCV 100(H) 79 - 95 fL 12/06/2024 4:10 AM EDT [facility] MCH 30.7 25.6 - 32.2 pg 12/06/2024 4:10 AM EDT [facility] MCHC 30.9(L) 32.2 - 35.5 GM/DL 12/06/2024 4:10 AM EDT [facility] RDW 17.2(H) 11.7 - 14.4 % 12/06/2024 4:10 AM EDT [facility] Platelets 80(L) 140 - 375 K/CU MM 12/06/2024 4:10 AM EDT [facility] MPV 11.7 9.4 - 12.3 fL 12/06/2024 4:10 AM EDT [facility] Blood Venipuncture / Unknown 12/06/2024 3:13 AM EDT 12/06/2024 3:53 AM EDT us Timothy Bai MD LAB BLOOD ORDERABLES Final Result [facility] [address] [phone] * (ABNORMAL) Glucose, Nova Meter (12/05/2024 7:21 PM EDT) POC-GLUCOSE 145(H) 70 - 110 mg/dL 12/05/2024 7:22 PM EDT [facility] Comment: In the event of poor peripheral blood flow, venous or arterial blood should be used due to the potential of erroneous results. Notified Nurse [employer] [id number] 12/05/2024 7:22 PM EDT [facility] Blood WHOLE BLOOD / Unknown 12/05/2024 7:21 PM EDT 12/05/2024 7:22 PM EDT Narrative [facility] - 12/05/2024 7:22 PM EDT [employer] ID is - [id number] us Timothy Bai MD POINT OF CARE TEST ORDERAB LES Final Result [facility] [address] [phone] * (ABNORMAL) Glucose, Nova Meter (12/05/2024 5:01 PM EDT) POC-GLUCOSE 140(H) 70 - 110 mg/dL 12/05/2024 5:02 PM EDT [facility] Comment: In the event of poor peripheral blood flow, venous or arterial blood should be used due to the potential of erroneous results. Notified Nurse [employer] [id number] 12/05/2024 5:02 PM EDT [facility] Blood WHOLE BLOOD / Unknown 12/05/2024 5:01 PM EDT 12/05/2024 5:02 PM EDT Narrative [facility] - 12/05/2024 5:02 PM EDT [employer] ID is - [id number] us Timothy Bai MD POINT OF CARE TEST ORDERAB LES Final Result Performing Organization Address City/[facility]/ZIP Co de Phone Number [facility] [address] [phone] * (ABNORMAL) Hemoglobin (12/05/2024 3:36 PM EDT) Pathologist [facility] Hemoglobin 8.1(L) 11.2 - 15.7 GM/DL 12/05/2024 3:57 PM EDT [facility] Blood Venipuncture / Unknown 12/05/2024 3:36 PM EDT 12/05/2024 3:47 PM EDT Timothy Bai MD LAB BLOOD ORDERABLES Final Result [facility] [address] [phone] * (ABNORMAL) Glucose, Nova Meter (12/05/2024 10:23 AM EDT) POC-GLUCOSE 141(H) 70 - 110 mg/dL 12/05/2024 10:24 AM EDT [facility] Comment: In the event of poor peripheral blood flow, venous or arterial blood should be used due to the potential of erroneous results. Notified Nurse [employer] Prot[employer] Followed [employer] [id number] 12/05/2024 10:24 AM EDT [facility] Blood WHOLE BLOOD / Unknown 12/05/2024 10:23 AM EDT 12/05/2024 10:24 AM EDT Narrative [facility] - 12/05/2024 10:24 AM EDT [employer] ID is - [id number] us Timothy Bai MD POINT OF CARE TEST ORDERAB LES Final Result Performing Organization Address [facility] Phone Number [facility] [address] [phone] * (ABNORMAL) Glucose, Nova Meter (12/05/2024 8:10 AM EDT) POC-GLUCOSE 123(H) 70 - 110 mg/dL 12/05/2024 8:27 AM EDT [facility] Comment: In the event of poor peripheral blood flow, venous or arterial blood should be used due to the potential of erroneous results. Notified Nurse [employer] [id number] 12/05/2024 8:27 AM EDT [facility] Blood WHOLE BLOOD / Unknown 12/05/2024 8:10 AM EDT 12/05/2024 8:27 AM EDT Narrative [facility] - 12/05/2024 8:27 AM EDT [employer] ID is - [id number] us Timothy Bai MD POINT OF CARE TEST ORDERAB LES Final Result Performing Organization Address [facility] Co de Phone Number [facility] [address] [phone] * (ABNORMAL) Hemoglobin (12/05/2024 8:00 AM EDT) Hemoglobin 8.2(L) 11.2 - 15.7 GM/DL 12/05/2024 8:21 AM EDT [facility] Blood Venipuncture / Unknown 12/05/2024 8:00 AM EDT 12/05/2024 8:06 AM EDT Timothy Bai MD LAB BLOOD ORDERABLES Final Result Performing Organization Address [facility] Co de Phone Number [facility] [address] [phone] * Ammonia (12/05/2024 3:20 AM EDT) Ammonia 41 18 - 72 mol/L 12/05/2024 4:02 AM EDT [facility] Blood Venipuncture / Unknown 12/05/2024 3:20 AM EDT 12/05/2024 3:24 AM EDT Timothy Bai MD LAB BLOOD ORDERABLES Final Result Performing Organization Address [facility] Co de Phone Number [facility] [address] [phone] * (ABNORMAL) Comprehensive Metabolic Panel (12/05/2024 3:20 AM EDT) Sodium 146(H) 136 - 145 meq/L 12/05/2024 4:11 AM EDT [facility] Potassium 3.6 3.4 - 5.1 meq/L 12/05/2024 4:11 AM EDT [facility] Chloride 117(H) 98 - 112 meq/L 12/05/2024 4:11 AM EDT [facility] CO2 20(L) 22 - 29 meq/L 12/05/2024 4:11 AM EDT [facility] Calcium 8.3(L) 8.4 - 10.2 mg/dL 12/05/2024 4:11 AM EDT [facility] Glucose 148(H) 82 - 115 mg/dL 12/05/2024 4:11 AM [facility] BUN 59.4(H) 9.8 - 20.1 mg/dL 12/05/2024 4:11 AM [facility] Creatinine 3.14(H) 0.57 - 1.11 mg/dL 12/05/2024 4:11 AM [facility] BUN/Creatinine 19 8 - 20 12/05/2024 4:11 AM [facility] eGFR (mL/min/1.73m2) 16(L) >=60 mL/min/1. 73m2 12/05/2024 4:11 AM [facility] Albumin 4.3 3.5 - 5.0 g/dL 12/05/2024 4:11 AM [facility] Alkaline Phosphatase 44 40 - 150 U/L 12/05/2024 4:11 AM [facility] ALT 8 <=34 U/L 12/05/2024 4:11 AM [facility] Comment: ALT2 reagent used for testing does not contain P5P supplementation and therefore may miss ALT elevations in patients with B6 deficiency. This population may be as high as 10% in the [place], with risk factors including malabsorption, drug interactions, and alcoholic hepatitis. AST 23 11 - 34 U/L 12/05/2024 4:11 AM [facility] Comment: AST2 reagent used for testing does not contain P5P supplementation and therefore may miss AST elevations in patients with B6 deficiency. This population may be as high as 10% in the [place], with risk factors including malabsorption, drug interactions, and alcoholic hepatitis. Total Bilirubin 1.2 0.2 - 1.2 mg/dL 12/05/2024 4:11 AM [facility] Protein, Total 6.4 6.4 - 8.3 g/dL 12/05/2024 4:11 AM [facility] Globulin 2.1(L) 2.5 - 4.1 g/dL 12/05/2024 4:11 AM [facility] Anion Gap 13(H) 4 - 12 12/05/2024 4:11 AM [facility] A/G Ratio 2.0(H) 0.7 - 1.9 12/05/2024 4:11 AM EDT [facility] Osmolality Calc 310.0 mOsm/kg 4:11 AM EDT [facility] Blood Venipuncture / Unknown 12/05/2024 3:20 AM EDT 12/05/2024 3:24 AM EDT Timothy Bai MD LAB BLOOD ORDERABLES Final Result Performing Organization Address City/[facility]/ZIP Co de Phone Number [facility] [address] [phone] * Magnesium (12/05/2024 3:20 AM EDT) Magnesium 2.3 1.6 - 2.6 mg/dL 12/05/2024 4:11 AM EDT [facility] Blood Venipuncture / Unknown 12/05/2024 3:20 AM EDT 12/05/2024 3:24 AM EDT Timothy Bai MD LAB BLOOD ORDERABLES Final Result Performing Organization Address City/[facility] Co de Phone Number [facility] [address] [phone] * (ABNORMAL) CBC - Hemogram (SJ-BKR) (12/05/2024 3:20 AM EDT) WBC 4.2 4.0 - 10.0 K/ L 12/05/2024 3:34 AM EDT [facility] RBC 2.64(L) 3.93 - 5.22 M/ L 12/05/2024 3:34 AM EDT [facility] Hemoglobin 8.2(L) 11.2 - 15.7 GM/DL 12/05/2024 3:34 AM EDT [facility] Hematocrit 25.9(L) 34.1 - 44.9 % 12/05/2024 3:34 AM EDT [facility] MCV 98(H) 79 - 95 fL 12/05/2024 3:34 AM EDT [facility] MCH 31.1 25.6 - 32.2 pg 12/05/2024 3:34 AM EDT [facility] MCHC 31.7(L) 32.2 - 35.5 GM/DL 12/05/2024 3:34 AM EDT [facility] RDW 17.1(H) 11.7 - 14.4 % 12/05/2024 3:34 AM EDT [facility] Platelets 60(L) 140 - 375 K/CU MM 12/05/2024 3:34 AM EDT [facility] MPV 11.3 9.4 - 12.3 fL 12/05/2024 3:34 AM EDT [facility] Blood Venipuncture / Unknown 12/05/2024 3:20 AM EDT 12/05/2024 3:24 AM EDT Timothy Bai MD LAB BLOOD ORDERABLES Final Result [facility] [address] [phone] * (ABNORMAL) Hemoglobin (12/04/2024 11:54 PM EDT) [facility] Hemoglobin 8.7(L) 11.2 - 15.7 GM/DL 12/05/2024 12:07 AM EDT [facility] Blood Venipuncture / Unknown 12/04/2024 11:54 PM EDT 12/04/2024 11:59 PM EDT Timothy Bai MD LAB BLOOD ORDERABLES Final Result [facility] [address] [phone] * (ABNORMAL) Glucose, Nova Meter (12/04/2024 10:20 PM EDT) POC-GLUCOSE 147(H) 70 - 110 mg/dL 12/04/2024 10:22 PM EDT [facility] Comment: In the event of poor peripheral blood flow, venous or arterial blood should be used due to the potential of erroneous results. Protocols Followed [employer] [id number] 12/04/2024 10:22 PM EDT [facility] Blood WHOLE BLOOD / Unknown 12/04/2024 10:20 PM EDT 12/04/2024 10:21 PM EDT Narrative [facility] - 12/04/2024 10:22 PM EDT [employer] ID is - [id number] us Timothy Bai MD POINT OF CARE TEST ORDERAB LES Final Result Performing Organization Address [facility] Co de Phone Number [facility] [address] [phone] * ECG 12 lead (12/04/2024 8:08 PM EDT) SYSTOLIC BLOOD PRESSURE (MCT) 133 mmHg GE MUSE DIASTOLIC BLOOD PRESSURE (MCT) 61 mmHg GE MUSE VENTRICULAR RATE EKG/MIN 85 BPM GE MUSE ATRIAL RATE (MCT) 85 BPM GE MUSE [place] Interval 140 ms GE MUSE QRS-INTERVAL (MSEC) 94 ms GE MUSE QT Interval 426 ms GE MUSE QTC Interval 506 ms GE MUSE P [place] 44 degrees GE MUSE R AXIS (MCT) 27 degrees GE MUSE T Wave [place] -27 degrees GE MUSE [place] Diagnosis Normal sinus rhythm Nonspecific T wave abnormality Abnormal ECG Confirmed by DEYSI FOSS M.D. ([id number]) on 12/05/2024 1:52:09 PM GE MUSE 12/04/2024 8:08 PM EDT 12/05/2024 1:52 PM EDT Timothy Bai MD ECG ORDERABLES Final Resu lt Performing Organization Address City/[facility]/ZIP Co de Phone Number GE MUSE * (ABNORMAL) Glucose, Nova Meter (12/04/2024 4:50 PM EDT) POC-GLUCOSE 137(H) 70 - 110 mg/dL 12/04/2024 4:51 PM EDT [facility] Comment: In the event of poor peripheral blood flow, venous or arterial blood should be used due to the potential of erroneous results. Protocols Followed [employer] [id number] 12/04/2024 4:51 PM EDT [facility] Blood WHOLE BLOOD / Unknown 12/04/2024 4:50 PM EDT 12/04/2024 4:51 PM EDT Narrative [facility] - 12/04/2024 4:51 PM EDT [employer] ID is - [id number] Timothy Bai MD POINT OF CARE TEST ORDERAB LES Final Result Performing Organization Address [facility]/ZIP Co de Phone Number [facility] [address] [phone] * (ABNORMAL) Hemoglobin (12/04/2024 4:27 PM EDT) Hemoglobin 8.9(L) 11.2 - 15.7 GM/DL 12/04/2024 4:36 PM EDT [facility] Blood Venipuncture / Unknown 12/04/2024 4:27 PM EDT 12/04/2024 4:31 PM EDT Timothy Bai MD LAB BLOOD ORDERABLES Final Result Performing Organization Address [facility]/ZIP Co de Phone Number [facility] [address] [phone] * (ABNORMAL) Basic Metabolic Panel (12/04/2024 10:53 AM EDT) Sodium 146(H) 136 - 145 meq/L 12/04/2024 11:17 AM EDT [facility] Potassium 3.6 3.4 - 5.1 meq/L 12/04/2024 11:17 AM EDT [facility] CO2 20(L) 22 - 29 meq/L 12/04/2024 11:17 AM EDT [facility] Chloride 116(H) 98 - 112 meq/L 12/04/2024 11:17 AM EDT [facility] Glucose 137(H) 82 - 115 mg/dL 12/04/2024 11:17 AM EDT [facility] BUN 61.1(H) 9.8 - 20.1 mg/dL 12/04/2024 11:17 AM EDT [facility] Creatinine 3.38(H) 0.57 - 1.11 mg/dL 12/04/2024 11:17 AM EDT [facility] BUN/Creatinine 18 8 - 20 12/04/2024 11:17 AM EDT [facility] Calcium 8.5 8.4 - 10.2 mg/dL 12/04/2024 11:17 AM EDT [facility] Anion Gap 14(H) 4 - 12 12/04/2024 11:17 AM EDT [facility] eGFR (mL/min/1.73m2) 15(L) >=60 mL/min/1.7 3m2 12/04/2024 11:17 AM EDT [facility] Osmolality Calc 310.0 mOsm/kg 11:17 AM EDT [facility] Blood Venipuncture / Unknown 12/04/2024 10:53 AM EDT 12/04/2024 10:57 AM EDT us Timothy Bai MD LAB BLOOD ORDERABLES Final Result [facility] [address] [phone] * (ABNORMAL) Glucose, Nova Meter (12/04/2024 10:52 AM EDT) POC-GLUCOSE 136(H) 70 - 110 mg/dL 12/04/2024 10:57 AM EDT [facility] Comment: In the event of poor peripheral blood flow, venous or arterial blood should be used due to the potential of erroneous results. Notified Nurse [employer] [id number] 12/04/2024 10:57 AM EDT [facility] Blood WHOLE BLOOD / Unknown 12/04/2024 10:52 AM EDT 12/04/2024 10:57 AM EDT Narrative [facility] - 12/04/2024 10:57 AM EDT [employer] ID is - [id number] us Timothy Bai MD POINT OF CARE TEST ORDERAB LES Final Result [facility] [address] [phone] * (ABNORMAL) CBC with automated diff (12/04/2024 8:15 AM EDT) WBC 4.1 4.0 - 10.0 K/ L 12/04/2024 9:56 AM EDT [facility] RBC 2.90(L) 3.93 - 5.22 M/ L 12/04/2024 9:56 AM EDT [facility] Hemoglobin 8.8(L) 11.2 - 15.7 GM/DL 12/04/2024 9:56 AM EDT [facility] Hematocrit 29.0(L) 34.1 - 44.9 % 12/04/2024 9:56 AM EDT [facility] MCV 100(H) 79 - 95 fL 12/04/2024 9:56 AM EDT [facility] MCH 30.3 25.6 - 32.2 pg 12/04/2024 9:56 AM EDT [facility] MCHC 30.3(L) 32.2 - 35.5 GM/DL 12/04/2024 9:56 AM EDT [facility] RDW 17.7(H) 11.7 - 14.4 % 12/04/2024 9:56 AM EDT [facility] Platelets 65(L) 140 - 375 K/CU MM 12/04/2024 9:56 AM EDT [facility] MPV 10.8 9.4 - 12.3 fL 12/04/2024 9:56 AM EDT [facility] % Neutros 79(H) 34 - 71 % 12/04/2024 9:56 AM EDT [facility] % Lymphs 12(L) 19 - 52 % 12/04/2024 9:56 AM EDT [facility] % Monos 9 5 - 13 % 12/04/2024 9:56 AM EDT [facility] % Eos 0(L) 1 - 6 % 12/04/2024 9:56 AM EDT [facility] % Baso 0 0 - 1 % 12/04/2024 9:56 AM EDT [facility] NRBC Absolute <0.01 0 - 0.012 K/ul 12/04/2024 9:56 AM EDT [facility] # Neutros 3.25 1.56 - 6.13 K/ L 12/04/2024 9:56 AM EDT [facility] # Lymphs 0.48(L) 1.18 - 3.74 K/ L 12/04/2024 9:56 AM EDT [facility] # Monos 0.35 0.24 - 0.86 K/ L 12/04/2024 9:56 AM EDT [facility] # Eos <0.03(L) 0.04 - 0.36 K/ L 12/04/2024 9:56 AM EDT [facility] # Baso <0.03 0.01 - 0.08 K/ L 12/04/2024 9:56 AM EDT [facility] Immature Granulocytes-Re lative 0.50(H) 0.01 - 0.43 % 12/04/2024 9:56 AM EDT [facility] # IG <0.03 0.00 - 0.03 K/uL 12/04/2024 9:56 AM EDT [facility] Blood Venipuncture / Unknown 12/04/2024 8:15 AM EDT 12/04/2024 8:32 AM EDT Narrative [facility] - 12/04/2024 9:56 AM EDT [...] Bai MD LAB BLOOD ORDERABLES Final Result [facility] [address] [phone] * (ABNORMAL) Hemoglobin (12/04/2024 8:15 AM EDT) [facility] Hemoglobin 9.0(L) 11.2 - 15.7 GM/DL 12/04/2024 8:36 AM EDT [facility] Blood Venipuncture / Unknown 12/04/2024 8:15 AM EDT 12/04/2024 8:32 AM EDT Timothy Bai MD LAB BLOOD ORDERABLES Final Result Performing Organization Address [facility] Co de Phone Number [facility] [address] [phone] * ANCA Vasculitis Profile(SENDOUT) (12/04/2024 8:15 AM EDT) [facility] Myeloperoxidase (MPO) Ab, IgG 0 0 - 19 AU/mL 12/07/2024 8:52 AM EDT [employer] Comment: INTERPRETIVE INFORMATION: Myeloperoxidase Abs, IgG 19 AU/mL or Less ......... Negative 20-25 AU/mL .............. Equivocal 26 AU/mL or Greater ...... Positive Approximately 90% of patients with a P-ANCA pattern by IFA have antibodies specific for MPO. Serine Proteinase 3 (PR3) Ab, IgG 0 0 - 19 AU/mL 12/07/2024 8:52 AM EDT [employer] Comment: INTERPRETIVE INFORMATION: Serine Proteinase 3, IgG 19 AU/mL or Less ........ Negative 20-25 AU/mL ............. Equivocal 26 AU/mL or Greater ..... Positive Approximately 85% of patients with a C-ANCA pattern by IFA have antibodies specific for PR3. ANCA IFA Titer <1:20 <1:20 12/07/2024 8:52 AM EDT [facility] ANCA IFA Pattern None Detected None Detected 12/07/2024 8:52 AM EDT [facility] Comment: INTERPRETIVE INFORMATION: ANCA IFA Pattern Neutrophil Cytoplasmic Antibodies (C-ANCA = granular cytoplasmic staining, P-ANCA = perinuclear staining) are found in the serum of over 90 percent of patients with certain necrotizing systemic vasculitides, and usually in less than 5 percent of patients with collagen vascular disease or arthritis. Performed By: [employer] [address] [place] [address] Regional Sales Coordinator: Lalo Mortensen MD, PhD CLIA Number: [id number] Blood Venipuncture / Unknown 12/04/2024 8:15 AM EDT 12/04/2024 8:32 AM EDT us Hema Cervantes MD LAB BLOOD ORDERABLES Final Re sult [employer] [address] [place] [address], [facility] [phone] * JEANA Reflexive Profile(SENDOUT) (12/04/2024 8:15 AM EDT) Anti-Nuclear Ab (JEANA), IgG by SHARON None Detected None Detected 12/06/2024 3:51 PM EDT [employer] Comment: No Anti-Nuclear Antibodies (JEANA) detected by SHARON. The Extractable Nuclear Antigen Antibodies (MANAGER DAIRY, Llanes, SSA 52, SSA 60, Scleroderma, Lilia-1 and SSB) and Double Stranded DNA (dsDNA) Antibody, IgG will not be performed. If suspicion of connective tissue disease is strong, and JEANA is negative by SHARON, consider testing for JEANA by IFA ([id number]). INTERPRETIVE INFORMATION: Anti-Nuclear Antibodies (JEANA), IgG by SHARON Antinuclear Antibodies (JEANA), IgG by SHARON: JEANA specimens are screened using enzyme-linked immunosorbent assay (SHARON) methodology. All SHARON results reported as Detected are further tested by indirect fluorescent assay (IFA) using HEp-2 substrate with an IgG-specific conjugate. The JEANA SHARON screen is designed to detect antibodies against dsDNA, histones, SS-A (Ro), SS-B (La), Llanes, Llanes/MANAGER DAIRY, Scl-70, Lilia-1, centromeric proteins, other antigens extracted from the HEp-2 cell nucleus. JEANA SHARON assays have been reported to have lower sensitivities than JEANA IFA for systemic autoimmune rheumatic diseases (SARD). Negative results do not necessarily rule out SARD. Performed By: [employer] [address] [place] [address] Regional Sales Coordinator: Lalo Mortensen MD, PhD CLIA Number: [id number] Blood Venipuncture / Unknown 12/04/2024 8:15 AM EDT 12/04/2024 8:32 AM EDT Hema Cervantes MD LAB BLOOD ORDERABLES Final Re sult [employer] [address] [place] [address], [facility] [phone] * XR chest AP portable (12/04/2024 6:49 [...] Haseeb Gil. Transcribed by Regina Villasenor PA-C. us Kirsty Tuttle APRN IMG DIAGNOSTIC IMAGING ORDER LONNY Final Result * (ABNORMAL) Blood gas, arterial (12/04/2024 6:34 AM EDT) pH, Arterial 7.29(L) 7.35 - 7.45 12/04/2024 7:10 AM [facility] pCO2, Arterial 43 35 - 45 mm Hg 12/04/2024 7:10 AM [facility] pO2, Arterial 106(H) 80 - 100 mm Hg 12/04/2024 7:10 AM [facility] HCO3, Arterial 21 20 - 26 mmol/L 12/04/2024 7:10 AM [facility] Base Excess, Arterial -5.2(L) -2.0 - 2.0 mmol/L 12/04/2024 7:10 AM [facility] O2 Sat, Arterial 98.8 95.0 - 100.0 % 12/04/2024 7:10 AM [facility] CTO2 ARTERIAL 11.9 mmol/L 12/04/2024 7:10 AM [facility] THB ARTERIAL 8.6(L) 12.0 - 18.0 g/dL 12/04/2024 7:10 AM [facility] COLLECTION SITE Right Brachial 12/04/2024 7:10 AM [facility] Arterial Puncture Yes 12/04/2024 7:10 AM [facility] Blood Gas O2 Delivery Device Cannula 12/04/2024 7:10 AM [facility] Oxygen Flow Rate 3 12/05/19 7:10 AM [facility] Blood Gas PT Temperature C 37.0 12/04/2024 7:10 AM [facility] Sen's Test Not Applicable 12/05/19 7:10 AM [facility] Critical Values Notification Critical Blood gas called to DAYANARA MATAIS . Results acknowledged/r ead back to [id number] and confirmed on 12/04/2024 07:09 12/04/2024 7:10 AM [facility] ABG Number of Draw Attempts 1 12/04/2024 7:10 AM [facility] FIO2 12/04/2024 7:10 AM EDT [facility] Blood Gas Temperature Corrected Results No No 12/04/2024 7:10 AM EDT [facility] Blood, Arterial 12/04/2024 6 :34 AM EDT 12/04/2024 7:10 AM EDT us Kirsty Tuttle APRN LAB BLOOD ORDERABLES Final R esult Performing Organization Address [facility] Co de Phone Number [facility] [address] [phone] * (ABNORMAL) Glucose, Nova Meter (12/04/2024 6:13 AM EDT) POC-GLUCOSE 155(H) 70 - 110 mg/dL 12/04/2024 6:14 AM EDT [facility] Comment: In the event of poor peripheral blood flow, venous or arterial blood should be used due to the potential of erroneous results. Protocols Followed [employer] [id number] 12/04/2024 6:14 AM EDT [facility] Blood WHOLE BLOOD / Unknown 12/04/2024 6:13 AM EDT 12/04/2024 6:14 AM EDT Narrative [facility] - 12/04/2024 6:14 AM EDT [employer] ID is - [id number] us Timothy Bai MD POINT OF CARE TEST ORDERAB LES Final Result Performing Organization Address [facility] Co de Phone Number [facility] [address] [phone] * (ABNORMAL) CBC with automated diff (12/04/2024 3:35 AM EDT) WBC 3.2(L) 4.0 - 10.0 K/ L 12/04/2024 3:55 AM EDT [facility] RBC 2.88(L) 3.93 - 5.22 M/ L 12/04/2024 3:55 AM EDT [facility] Hemoglobin 8.9(L) 11.2 - 15.7 GM/DL 12/04/2024 3:55 AM EDT [facility] Hematocrit 28.4(L) 34.1 - 44.9 % 12/04/2024 3:55 AM EDT [facility] MCV 99(H) 79 - 95 fL 12/04/2024 3:55 AM EDT [facility] MCH 30.9 25.6 - 32.2 pg 12/04/2024 3:55 AM EDT [facility] MCHC 31.3(L) 32.2 - 35.5 GM/DL 12/04/2024 3:55 AM EDT [facility] RDW 17.4(H) 11.7 - 14.4 % 12/04/2024 3:55 AM EDT [facility] Platelets 61(L) 140 - 375 K/CU MM 12/04/2024 3:55 AM EDT [facility] MPV 11.1 9.4 - 12.3 fL 12/04/2024 3:55 AM EDT [facility] % Neutros 80(H) 34 - 71 % 12/04/2024 3:55 AM EDT [facility] % Lymphs 12(L) 19 - 52 % 12/04/2024 3:55 AM EDT [facility] % Monos 8 5 - 13 % 12/04/2024 3:55 AM EDT [facility] % Eos 0(L) 1 - 6 % 12/04/2024 3:55 AM EDT [facility] % Baso 0 0 - 1 % 12/04/2024 3:55 AM EDT [facility] NRBC Absolute <0.01 0 - 0.012 K/ul 12/04/2024 3:55 AM EDT [facility] # Neutros 2.58 1.56 - 6.13 K/ L 12/04/2024 3:55 AM EDT [facility] # Lymphs 0.39(L) 1.18 - 3.74 K/ L 12/04/2024 3:55 AM EDT [facility] # Monos 0.25 0.24 - 0.86 K/ L 12/04/2024 3:55 AM EDT [facility] # Eos <0.03(L) 0.04 - 0.36 K/ L 12/04/2024 3:55 AM EDT [facility] # Baso <0.03 0.01 - 0.08 K/ L 12/04/2024 3:55 AM EDT [facility] Immature Granulocytes-Re lative 0.30 0.01 - 0.43 % 12/04/2024 3:55 AM EDT [facility] # IG <0.03 0.00 - 0.03 K/uL 12/04/2024 3:55 AM EDT [facility] Blood Venipuncture / Unknown 12/04/2024 3:35 AM EDT 12/04/2024 3:41 AM EDT Narrative [facility] - 12/04/2024 3:55 AM EDT [...] APRN LAB BLOOD ORDERABLES Final R esult [facility] [address] [phone] * Ammonia (12/04/2024 3:35 AM EDT) Ammonia 30 18 - 72 mol/L 12/04/2024 3:57 AM EDT [facility] Blood Venipuncture / Unknown 12/04/2024 3:35 AM EDT 12/04/2024 3:41 AM EDT us Timothy Bai MD LAB BLOOD ORDERABLES Final Result Performing Organization Address City/[facility]/ZIP Co de Phone Number [facility] [address] [phone] * Phosphorus (12/04/2024 3:34 AM EDT) Phosphorus 4.2 2.5 - 4.5 mg/dL 12/04/2024 4:04 AM EDT [facility] Blood Venipuncture / Unknown 12/04/2024 3:34 AM EDT 12/04/2024 3:41 AM EDT us Kirsty Tuttle APRN LAB BLOOD ORDERABLES Final R esult [facility] [address] [phone] * (ABNORMAL) Comprehensive Metabolic Panel (12/04/2024 3:34 AM EDT) Sodium 143 136 - 145 meq/L 12/04/2024 4:04 AM EDT [facility] Potassium 3.7 3.4 - 5.1 meq/L 12/04/2024 4:04 AM EDT [facility] Chloride 115(H) 98 - 112 meq/L 12/04/2024 4:04 AM EDT [facility] CO2 20(L) 22 - 29 meq/L 12/04/2024 4:04 AM EDT [facility] Calcium 8.3(L) 8.4 - 10.2 mg/dL 12/04/2024 4:04 AM EDT [facility] Glucose 203(H) 82 - 115 mg/dL 12/04/2024 4:04 AM EDT [facility] BUN 58.6(H) 9.8 - 20.1 mg/dL 12/04/2024 4:04 AM EDT [facility] Creatinine 3.43(H) 0.57 - 1.11 mg/dL 12/04/2024 4:04 AM EDT [facility] BUN/Creatinine 17 8 - 20 12/04/2024 4:[facility] eGFR (mL/min/1.73m2) 15(L) >=60 mL/min/1. 73m2 12/04/2024 4:04 AM EDT [facility] Albumin 4.2 3.5 - 5.0 g/dL 12/04/2024 4:04 AM EDT [facility] Alkaline Phosphatase 47 40 - 150 U/L 12/04/2024 4:04 AM EDT [facility] ALT 11 <=34 U/L 12/04/2024 4:04 AM EDT [facility] Comment: ALT2 reagent used for testing does not contain P5P supplementation and therefore may miss ALT elevations in patients with B6 deficiency. This population may be as high as 10% in the [place], with risk factors including malabsorption, drug interactions, and alcoholic hepatitis. AST 21 11 - 34 U/L 12/04/2024 4:04 AM EDT [facility] Comment: AST2 reagent used for testing does not contain P5P supplementation and therefore may miss AST elevations in patients with B6 deficiency. This population may be as high as 10% in the [place], with risk factors including malabsorption, drug interactions, and alcoholic hepatitis. Total Bilirubin 1.1 0.2 - 1.2 mg/dL 12/04/2024 4:04 AM EDT [facility] Protein, Total 6.7 6.4 - 8.3 g/dL 12/04/2024 4:04 AM EDT [facility] Globulin 2.5 2.5 - 4.1 g/dL 12/04/2024 4:04 AM EDT [facility] Anion Gap 12 4 - 12 12/04/2024 4:04 AM EDT [facility] A/G Ratio 1.7 0.7 - 1.9 12/04/2024 4:04 AM EDT [facility] Osmolality Calc 307.2 mOsm/kg 4:04 AM EDT [facility] Blood Venipuncture / Unknown 12/04/2024 3:34 AM EDT 12/04/2024 3:41 AM EDT us Timothy Bai MD LAB BLOOD ORDERABLES Final Result [facility] [address] [phone] * Magnesium (12/04/2024 3:34 AM EDT) Magnesium 2.5 1.6 - 2.6 mg/dL 12/04/2024 4:04 AM EDT [facility] Blood Venipuncture / Unknown 12/04/2024 3:34 AM EDT 12/04/2024 3:41 AM EDT Timothy Bai MD LAB BLOOD ORDERABLES Final Result [facility] [address] [phone] * ECG 12 lead (12/04/2024 3:25 AM EDT) SYSTOLIC BLOOD PRESSURE (MCT) 165 mmHg GE MUSE DIASTOLIC BLOOD PRESSURE (MCT) 77 mmHg GE MUSE VENTRICULAR RATE EKG/MIN 80 BPM GE MUSE ATRIAL RATE (MCT) 80 BPM GE MUSE [place] Interval 154 ms GE MUSE QRS-INTERVAL (MSEC) 76 ms GE MUSE QT Interval 380 ms GE MUSE QTC Interval 438 ms GE MUSE P [place] 47 degrees GE MUSE R AXIS (MCT) 44 degrees GE MUSE T Wave [place] -30 degrees GE MUSE [place] Diagnosis Normal sinus rhythm Low voltage QRS Nonspecific T wave abnormality Confirmed by DEYSI FOSS M.D. ([id number]) on 12/04/2024 11:05:22 AM GE MUSE 12/04/2024 3:25 AM EDT 12/04/2024 11:05 AM EDT us Deysi Foss MD ECG ORDERABLES Final Result Performing Organization Address City/[facility]/ZIP Co de Phone Number GE MUSE * (ABNORMAL) Hemoglobin (12/04/2024 1:04 AM EDT) Hemoglobin 9.0(L) 11.2 - 15.7 GM/DL 12/04/2024 1:30 AM EDT [facility] Blood Venipuncture / Unknown 12/04/2024 1:04 AM EDT 12/04/2024 1:20 AM EDT Timothy Bai MD LAB BLOOD ORDERABLES Final Result [facility] [address] [phone] * (ABNORMAL) Glucose, Nova Meter (12/03/2024 9:41 PM EDT) POC-GLUCOSE 146(H) 70 - 110 mg/dL 12/03/2024 9:43 PM EDT [facility] Comment: In the event of poor peripheral blood flow, venous or arterial blood should be used due to the potential of erroneous results. Protocols Followed [employer] [id number] 12/03/2024 9:43 PM EDT [facility] Blood WHOLE BLOOD / Unknown 12/03/2024 9:41 PM EDT 12/03/2024 9:43 PM EDT [facility] - 12/03/2024 9:43 PM EDT [employer] ID is - [id number] Timothy Bai MD POINT OF CARE TEST ORDERAB LES Final Result [facility] [address] [phone] * (ABNORMAL) Glucose, Nova Meter (12/03/2024 5:19 PM EDT) POC-GLUCOSE 146(H) 70 - 110 mg/dL 12/03/2024 5:24 PM EDT [facility] Comment: In the event of poor peripheral blood flow, venous or arterial blood should be used due to the potential of erroneous results. Notified Nurse RBV [employer] [id number] 12/03/2024 5:24 PM EDT [facility] Blood WHOLE BLOOD / Unknown 12/03/2024 5:19 PM EDT 12/03/2024 5:24 PM EDT Narrative [facility] - 12/03/2024 5:24 PM EDT [employer] ID is - [id number] Timothy Bai MD POINT OF CARE TEST ORDERAB LES Final Result [facility] [address] [place] [id number], [facility] [phone] * XR chest AP portable (12/03/2024 4:45 [...] and dictated by Jose C Calhoun MD Kirsty Tuttle APRN IMG DIAGNOSTIC IMAGING ORDER LONNY Final Result * ECG 12 lead (12/03/2024 2:16 PM EDT) VENTRICULAR RATE EKG/MIN 136 BPM GE MUSE ATRIAL RATE (MCT) 73 BPM GE MUSE QRS-INTERVAL (MSEC) 88 ms GE MUSE QT Interval 304 ms GE MUSE QTC Interval 457 ms GE MUSE R AXIS (MCT) -11 degrees GE MUSE T Wave [place] -58 degrees GE MUSE [place] Diagnosis Atrial fibrillation with rapid ventricular response Possible Anterolateral infarct , age undetermined Possible abberancy Confirmed by DEYSI FOSS M.D. ([id number]) on 12/03/2024 5:58:45 PM GE MUSE 12/03/2024 2:16 PM EDT 12/03/2024 5:58 PM EDT Timothy Bai MD ECG ORDERABLES Final Resu lt Performing Organization Address City/[facility]/ZIP Co de Phone Number GE MUSE * (ABNORMAL) Glucose, Nova Meter (12/03/2024 10:45 AM EDT) Pathologist [facility] POC-GLUCOSE 156(H) 70 - 110 mg/dL 12/03/2024 10:49 AM EDT [facility] Comment: In the event of poor peripheral blood flow, venous or arterial blood should be used due to the potential of erroneous results. Notified Nurse [employer] [id number] 12/03/2024 10:49 AM EDT [facility] Blood WHOLE BLOOD / Unknown 12/03/2024 10:45 AM EDT 12/03/2024 10:49 AM EDT Narrative [facility] - 12/03/2024 10:49 AM EDT [employer] ID is - [id number] Timothy Bai MD POINT OF CARE TEST ORDERAB LES Final Result Performing Organization Address [facility]/ZIP Co de Phone Number [facility] [address] [phone] * ECG 12 lead (12/03/2024 10:39 AM EDT) [facility] VENTRICULAR RATE EKG/MIN 97 BPM GE MUSE ATRIAL RATE (MCT) 97 BPM GE MUSE [place] Interval 150 ms GE MUSE QRS-INTERVAL (MSEC) 88 ms GE MUSE QT Interval 362 ms GE MUSE QTC Interval 459 ms GE MUSE P [place] 40 degrees GE MUSE R AXIS (MCT) 8 degrees GE MUSE T Wave [place] -8 degrees GE MUSE [place] Diagnosis Normal sinus rhythm Normal ECG No previous ECGs available Confirmed by DEYSI FOSS M.D. ([id number]) on 12/03/2024 5:59:01 PM GE MUSE 12/03/2024 10:3 9 AM EDT 12/03/2024 5:59 PM EDT us Timothy Bai MD ECG ORDERABLES Final Resu lt GE MUSE * (ABNORMAL) CBC with automated diff (12/03/2024 8:31 AM EDT) WBC 2.8(L) 4.0 - 10.0 K/ L 12/03/2024 9:00 AM EDT [facility] RBC 2.68(L) 3.93 - 5.22 M/ L 12/03/2024 9:00 AM EDT [facility] Hemoglobin 8.2(L) 11.2 - 15.7 GM/DL 12/03/2024 9:00 AM EDT [facility] Hematocrit 26.1(L) 34.1 - 44.9 % 12/03/2024 9:00 AM EDT [facility] MCV 97(H) 79 - 95 fL 12/03/2024 9:00 AM EDT [facility] MCH 30.6 25.6 - 32.2 pg 12/03/2024 9:00 AM EDT [facility] MCHC 31.4(L) 32.2 - 35.5 GM/DL 12/03/2024 9:00 AM EDT [facility] RDW 17.5(H) 11.7 - 14.4 % 12/03/2024 9:00 AM EDT [facility] Platelets 55(L) 140 - 375 K/CU MM 12/03/2024 9:00 AM EDT [facility] MPV 10.0 9.4 - 12.3 fL 12/03/2024 9:00 AM EDT [facility] % Neutros 79(H) 34 - 71 % 12/03/2024 9:00 AM EDT [facility] % Lymphs 13(L) 19 - 52 % 12/03/2024 9:00 AM EDT [facility] % Monos 6 5 - 13 % 12/03/2024 9:00 AM EDT [facility] % Eos 0(L) 1 - 6 % 12/03/2024 9:00 AM EDT [facility] % Baso 0 0 - 1 % 12/03/2024 9:00 AM EDT [facility] NRBC Absolute <0.01 0 - 0.012 K/ul 12/03/2024 9:00 AM EDT [facility] # Neutros 2.22 1.56 - 6.13 K/ L 12/03/2024 9:00 AM EDT [facility] # Lymphs 0.37(L) 1.18 - 3.74 K/ L 12/03/2024 9:00 AM EDT [facility] [facility] # Monos 0.18(L) 0.24 - 0.86 K/ L 12/03/2024 9:00 AM EDT [facility] # Eos <0.03(L) 0.04 - 0.36 K/ L 12/03/2024 9:00 AM EDT [facility] # Baso <0.03 0.01 - 0.08 K/ L 12/03/2024 9:00 AM EDT [facility] Immature Granulocytes-Re lative 0.70(H) 0.01 - 0.43 % 12/03/2024 9:00 AM EDT [facility] # IG <0.03 0.00 - 0.03 K/uL 12/03/2024 9:00 AM EDT [facility] Blood Venipuncture / Unknown 12/03/2024 8:31 AM EDT 12/03/2024 8:40 AM EDT Narrative [facility] - 12/03/2024 9:00 AM EDT [...] Bai MD LAB BLOOD ORDERABLES Final Result [facility] [address] [phone] * Creatine Kinase (CK) (12/03/2024 7:39 AM EDT) Total CK 55 29 - 168 U/L 12/03/2024 6:19 PM EDT [facility] Blood Venipuncture / Unknown 12/03/2024 7:39 AM EDT 12/03/2024 5:52 PM EDT us Hema Cervantes MD LAB BLOOD ORDERABLES Final Re sult [facility] [address] [phone] * Ammonia (12/03/2024 7:39 AM EDT) Ammonia 36 18 - 72 mol/L 12/03/2024 7:56 AM EDT [facility] Blood Venipuncture / Unknown 12/03/2024 7:39 AM EDT 12/03/2024 7:45 AM EDT Narrative [facility] - 12/03/2024 7:56 AM EDT Specimen slightly hemolyzed us Timothy Bai MD LAB BLOOD ORDERABLES Final Result [facility] [address] [phone] * (ABNORMAL) Comprehensive Metabolic Panel (12/03/2024 7:39 AM EDT) Sodium 147(H) 136 - 145 meq/L 12/03/2024 8:05 AM EDT [facility] Potassium 4.1 3.4 - 5.1 meq/L 12/03/2024 8:05 AM EDT [facility] Chloride 119(H) 98 - 112 meq/L 12/03/2024 8:05 AM EDT [facility] CO2 20(L) 22 - 29 meq/L 12/03/2024 8:05 AM EDT [facility] Calcium 8.3(L) 8.4 - 10.2 mg/dL 12/03/2024 8:05 AM [facility] Glucose 145(H) 82 - 115 mg/dL 12/03/2024 8:05 AM [facility] BUN 53.7(H) 9.8 - 20.1 mg/dL 12/03/2024 8:05 AM [facility] Creatinine 3.48(H) 0.57 - 1.11 mg/dL 12/03/2024 8:05 AM [facility] BUN/Creatinine 15 8 - 20 12/03/2024 8:05 AM [facility] eGFR (mL/min/1.73m2) 14(L) >=60 mL/min/1. 73m2 12/03/2024 8:05 AM [facility] Albumin 4.4 3.5 - 5.0 g/dL 12/03/2024 8:05 AM [facility] Alkaline Phosphatase 49 40 - 150 U/L 12/03/2024 8:05 AM [facility] ALT 7 <=34 U/L 12/03/2024 8:05 AM [facility] Comment: ALT2 reagent used for testing does not contain P5P supplementation and therefore may miss ALT elevations in patients with B6 deficiency. This population may be as high as 10% in the [place], with risk factors including malabsorption, drug interactions, and alcoholic hepatitis. AST 21 11 - 34 U/L 12/03/2024 8:05 AM [facility] Comment: AST2 reagent used for testing does not contain P5P supplementation and therefore may miss AST elevations in patients with B6 deficiency. This population may be as high as 10% in the [place], with risk factors including malabsorption, drug interactions, and alcoholic hepatitis. Total Bilirubin 1.1 0.2 - 1.2 mg/dL 12/03/2024 8:05 AM [facility] Protein, Total 6.8 6.4 - 8.3 g/dL 12/03/2024 8:05 AM [facility] Globulin 2.4(L) 2.5 - 4.1 g/dL 12/03/2024 8:05 AM [facility] Anion Gap 12 4 - 12 12/03/2024 8:05 AM [facility] A/G Ratio 1.8 0.7 - 1.9 12/03/2024 8:05 AM EDT [facility] Osmolality Calc 309.7 mOsm/kg 8:05 AM EDT [facility] Blood Venipuncture / Unknown 12/03/2024 7:39 AM EDT 12/03/2024 7:46 AM EDT Timothy Bai MD LAB BLOOD ORDERABLES Final Result Performing Organization Address City/[facility]/ZIP Co de Phone Number [facility] [address] [phone] * Magnesium (12/03/2024 7:39 AM EDT) Pathologist [facility] Magnesium 2.5 1.6 - 2.6 mg/dL 12/03/2024 8:05 AM EDT [facility] Blood Venipuncture / Unknown 12/03/2024 7:39 AM EDT 12/03/2024 7:46 AM EDT Timothy Bai MD LAB BLOOD ORDERABLES Final Result Performing Organization Address [facility] de Phone Number [facility] 1 [place] [address], [facility] [phone] * (ABNORMAL) Glucose, Nova Meter (12/03/2024 5:13 AM EDT) POC-GLUCOSE 142(H) 70 - 110 mg/dL 12/03/2024 5:15 AM EDT [facility] Comment: In the event of poor peripheral blood flow, venous or arterial blood should be used due to the potential of erroneous results. Protocols Followed [employer] [id number] 12/03/2024 5:15 AM EDT [facility] Blood WHOLE BLOOD / Unknown 12/03/2024 5:13 AM EDT 12/03/2024 5:15 AM EDT Narrative [facility] - 12/03/2024 5:15 AM EDT [employer] ID is - [id number] us Timothy Bai MD POINT OF CARE TEST ORDERAB LES Final Result [facility] 1 [place] [address], [facility] [phone] * (ABNORMAL) Glucose, Nova Meter (12/03/2024 1:12 AM EDT) POC-GLUCOSE 168(H) 70 - 110 mg/dL 12/03/2024 1:13 AM EDT [facility] Comment: In the event of poor peripheral blood flow, venous or arterial blood should be used due to the potential of erroneous results. Protocols Followed [employer] [id number] 12/03/2024 1:13 AM EDT [facility] Blood WHOLE BLOOD / Unknown 12/03/2024 1:12 AM EDT 12/03/2024 1:13 AM EDT [facility] - 12/03/2024 1:13 AM EDT [employer] ID is - [id number] us Timothy Bai MD POINT OF CARE TEST ORDERAB LES Final Result [facility] 1 [place] [address], [facility] [phone] * (ABNORMAL) Glucose, Nova Meter (12/03/2024 1:10 AM EDT) POC-GLUCOSE 164(H) 70 - 110 mg/dL 12/03/2024 1:12 AM EDT [facility] Comment: In the event of poor peripheral blood flow, venous or arterial blood should be used due to the potential of erroneous results. Protocols Followed [employer] [id number] 12/03/2024 1:12 AM EDT [facility] Blood WHOLE BLOOD / Unknown 12/03/2024 1:10 AM EDT 12/03/2024 1:12 AM EDT [facility] - 12/03/2024 1:12 AM EDT [employer] ID is - [id number] us Timothy Bai MD POINT OF CARE TEST ORDERAB LES Final Result Performing Organization Address [facility]/ZIP Co de Phone Number [facility] [address] [phone] * (ABNORMAL) Hemoglobin (12/02/2024 11:06 PM EDT) Hemoglobin 8.9(L) 11.2 - 15.7 GM/DL 12/02/2024 11:18 PM EDT [facility] Blood Venipuncture / Unknown 12/02/2024 11:06 PM EDT 12/02/2024 11:15 PM EDT us Denilson Hodgson DO LAB BLOOD ORDERABLES Final Res ult Performing Organization Address [facility] Co de Phone Number [facility] [address] [phone] * (ABNORMAL) Glucose, Nova Meter (12/02/2024 8:06 PM EDT) POC-GLUCOSE 144(H) 70 - 110 mg/dL 12/02/2024 8:08 PM EDT [facility] Comment: In the event of poor peripheral blood flow, venous or arterial blood should be used due to the potential of erroneous results. Protocols Followed [employer] [id number] 12/02/2024 8:08 PM EDT [facility] Blood WHOLE BLOOD / Unknown 12/02/2024 8:06 PM EDT 12/02/2024 8:08 PM EDT Narrative [facility] - 12/02/2024 8:08 PM EDT [employer] ID is - [id number] us Timothy Bai MD POINT OF CARE TEST ORDERAB LES Final Result Performing Organization Address City/[facility]/ZIP Co de Phone Number [facility] [address] [phone] * (ABNORMAL) Hemoglobin (12/02/2024 6:03 PM EDT) Hemoglobin 9.1(L) 11.2 - 15.7 GM/DL 12/02/2024 6:24 PM EDT [facility] Blood Venipuncture / Unknown 12/02/2024 6:03 PM EDT 12/02/2024 6:19 PM EDT us Timothy Bai MD LAB BLOOD ORDERABLES Final Result [facility] [address] [phone] * (ABNORMAL) Glucose, Nova Meter (12/02/2024 5:18 PM EDT) [facility] POC-GLUCOSE 128(H) 70 - 110 mg/dL 12/02/2024 5:21 PM EDT [facility] Comment: In the event of poor peripheral blood flow, venous or arterial blood should be used due to the potential of erroneous results. Notified Nurse [employer] [id number] 12/02/2024 5:21 PM EDT [facility] Blood WHOLE BLOOD / Unknown 12/02/2024 5:18 PM EDT 12/02/2024 5:20 PM EDT Narrative [facility] - 12/02/2024 5:21 PM EDT [employer] ID is - [id number] us Timothy Bai MD POINT OF CARE TEST ORDERAB LES Final Result [facility] [address] [phone] * Transfuse RBC (12/02/2024 5:03 PM EDT) us Timothy Bai MD FS_MODEL_IP_BLOOD TRANSFUS ION ORDERABLES Final Result * Transfuse RBC: 1 Units (12/02/2024 5:03 PM EDT) us Timothy Bai MD FS_MODEL_IP_BLOOD TRANSFUS ION ORDERABLES Final Result * (ABNORMAL) Glucose, Nova Meter (12/02/2024 12:51 PM EDT) POC-GLUCOSE 112(H) 70 - 110 mg/dL 12/02/2024 12:53 PM EDT [facility] Comment: In the event of poor peripheral blood flow, venous or arterial blood should be used due to the potential of erroneous results. Notified Nurse [employer] [id number] 12/02/2024 12:53 PM EDT [facility] Blood WHOLE BLOOD / Unknown 12/02/2024 12:51 PM EDT 12/02/2024 12:53 PM EDT Narrative [facility] - 12/02/2024 12:53 PM EDT [employer] ID is - [id number] us Timothy Bai MD POINT OF CARE TEST ORDERAB LES Final Result Performing Organization Address City/State/[facility] Co de Phone Number [facility] [address] [place] [address] * CT bone marrow biopsy (12/02/2024 12:24 [...] Pancytopenia. ATTENDING RADIOLOGIST: Dr. Haseeb Gil. PHYSICIAN UM NURSE: Sandra Ramsey PA-C PROCEDURE: After informed consent [...] Pancytopenia. ATTENDING RADIOLOGIST: Dr. Haseeb Gil. PHYSICIAN UM NURSE: Sandra Ramsey PA-C PROCEDURE: After informed consent [...] Gil. Transcribed by Sandra Ramsey PA-C. Laura Rangel MD IM CT ORDERABLES Final Result * [facility] BONE MARROW SMEAR, ASPIRATION, AND STAIN (12/02/2024 12:06 PM EDT) AP RESULT See Note: [facility] Comment: [facility] [address] [place] [address] or [phone] Joe Carlos M.D., [employer] PATIENT NAME LABORATORY NO. MARY OLIVA. [id number] [facility] MA[facility] AGE SEX SSN CLIENT REF # [id number] F [id number] [address] [place] [address] REQUESTING Aleksandr ATTENDING Aleksandr. COPY TO.. LAURA RANGEL DATE COLLECTED DATE RECEIVED DATE REPORTED 12/02/2024 12/02/2024 12/06/2024 ADDENDUM PRESENT ADDENDUM: Cytogenetics shows a normal female karyotype, 46,XX[20]. The original diagnosis remains unchanged. Verified by Heydi Mak M.D., MPH on 12/13/2024 Professional interpretation rendered by Heydi Mak M.D., MPH at [facility], [address] [place] [address]. DIAGNOSIS: PERIPHERAL SMEAR , BONE MARROW ASPIRATION [...] CD38, CD45, CD56, CD57, CD117, CD123, HLA-DR, [place], and Lambda. These tests use analyte specific [...] rendered by Heydi Mak M.D., MPH at [facility], [facility], [address] [place] [address]. GROSS DESCRIPTION: A. Received 1 peripheral blood smear slide for review. B. Received 5 bone marrow aspirate smear slides for review. 4 additional bone marrow aspirate smear slides made at [facility]. C. Received in a purple top tube [...] BY: Heydi Mak M.D., MPH CPT CODES: 07017, 2FLP, 54914, [id number], [id number], 06751, [id number], [id number] Bone Marrow BONE MARROW STRUCTURE / Unknown 12/02/2024 12:06 PM EDT us Laura Rangel MD PATHOLOGY/CYTOLOGY ORDERABLES Edited Result - Final [facility] [address] * Prepare RBC: 1 Units (12/02/2024 9:36 AM EDT) Pathologist [facility] Issue Date/Time [id number] [facility] BLOOD [facility] ([place]) Product Identification Red Blood Cells [facility] [place]) Product Code [id number] [facility] [place] Status Information Transfused [facility] [place] Unit Number [id number] [facility] [place] Blood Type 5100 [facility] [place] Cross Match Results Compatible [facility] [place]) us Timothy Bai MD FS_MODEL_IP_BLOOD BANK PRO DUCT ORDERABLES Final Result Performing Organization Address [facility]/ZIP Co de Phone Number [facility] ([place]) [address] [place] [address] * (ABNORMAL) Hemoglobin and hematocrit (12/02/2024 7:40 AM EDT) [facility] Hemoglobin 7.4(L) 11.2 - 15.7 GM/DL 12/02/2024 9:43 AM EDT [facility] Hematocrit 23.4(L) 34.1 - 44.9 % 12/02/2024 9:43 AM EDT [facility] Blood Venipuncture / Unknown 12/02/2024 7:40 AM EDT 12/02/2024 7:47 AM EDT Timothy Bai MD LAB BLOOD ORDERABLES Final Result [facility] [address] [place] [address] * (ABNORMAL) Hemoglobin (12/02/2024 7:40 AM EDT) Hemoglobin 7.3(L) 11.2 - 15.7 GM/DL 12/02/2024 7:52 AM EDT [facility] Blood Venipuncture / Unknown 12/02/2024 7:40 AM EDT 12/02/2024 7:47 AM EDT Timothy Bai MD LAB BLOOD ORDERABLES Final Result [facility] [address] [phone] * (ABNORMAL) Glucose, Nova Meter (12/02/2024 5:04 AM EDT) [facility] POC-GLUCOSE 115(H) 70 - 110 mg/dL 12/02/2024 5:06 AM EDT [facility] Comment: In the event of poor peripheral blood flow, venous or arterial blood should be used due to the potential of erroneous results. Notified Nurse [employer] [id number] 12/02/2024 5:06 AM EDT [facility] Blood WHOLE BLOOD / Unknown 12/02/2024 5:04 AM EDT 12/02/2024 5:06 AM EDT [facility] - 12/02/2024 5:06 AM EDT [employer] ID is - [id number] Timothy Bai MD POINT OF CARE TEST ORDERAB LES Final Result [facility] [address] [phone] * (ABNORMAL) Ammonia (12/02/2024 3:38 AM EDT) [facility] Ammonia 74(H) 18 - 72 mol/L 12/02/2024 5:20 AM EDT [facility] Blood Venipuncture / Unknown 12/02/2024 3:38 AM EDT 12/02/2024 4:47 AM EDT Narrative [facility] - 12/02/2024 5:20 AM EDT Specimen slightly hemolyzed us Timothy Bai MD LAB BLOOD ORDERABLES Final Result [facility] [address] [place] [id number] [phone] * (ABNORMAL) Comprehensive Metabolic Panel (12/02/2024 3:38 AM EDT) Sodium 146(H) 136 - 145 meq/L 12/02/2024 5:30 AM EDT [facility] Potassium 4.2 3.4 - 5.1 meq/L 12/02/2024 5:30 AM EDT [facility] Chloride 118(H) 98 - 112 meq/L 12/02/2024 5:30 AM EDT [facility] CO2 19(L) 22 - 29 meq/L 12/02/2024 5:30 AM EDT [facility] Calcium 7.9(L) 8.4 - 10.2 mg/dL 12/02/2024 5:30 AM EDT [facility] Glucose 107 82 - 115 mg/dL 12/02/2024 5:30 AM EDT [facility] BUN 55.1(H) 9.8 - 20.1 mg/dL 12/02/2024 5:30 AM EDT [facility] Creatinine 3.55(H) 0.57 - 1.11 mg/dL 12/02/2024 5:30 AM EDT [facility] BUN/Creatinine 16 8 - 20 12/02/2024 5:30 AM EDT [facility] eGFR (mL/min/1.73m2) 14(L) >=60 mL/min/1. 73m2 12/02/2024 5:30 AM EDT [facility] Albumin 3.6 3.5 - 5.0 g/dL 12/02/2024 5:30 AM EDT [facility] Alkaline Phosphatase 49 40 - 150 U/L 12/02/2024 5:30 AM EDT [facility] ALT 8 <=34 U/L 12/02/2024 5:30 AM EDT [facility] Comment: ALT2 reagent used for testing does not contain P5P supplementation and therefore may miss ALT elevations in patients with B6 deficiency. This population may be as high as 10% in the [place], with risk factors including malabsorption, drug interactions, and alcoholic hepatitis. AST 32 11 - 34 U/L 12/02/2024 5:30 AM EDT [facility] Comment: AST2 reagent used for testing does not contain P5P supplementation and therefore may miss AST elevations in patients with B6 deficiency. This population may be as high as 10% in the [place], with risk factors including malabsorption, drug interactions, and alcoholic hepatitis. Total Bilirubin 0.9 0.2 - 1.2 mg/dL 12/02/2024 5:30 AM EDT [facility] Protein, Total 6.1(L) 6.4 - 8.3 g/dL 12/02/2024 5:30 AM EDT [facility] Globulin 2.5 2.5 - 4.1 g/dL 12/02/2024 5:30 AM EDT [facility] Anion Gap 13(H) 4 - 12 12/02/2024 5:30 AM EDT [facility] A/G Ratio 1.4 0.7 - 1.9 12/02/2024 5:30 AM EDT [facility] Osmolality Calc 306.2 mOsm/kg 5:30 AM EDT [facility] Blood Venipuncture / Unknown 12/02/2024 3:38 AM EDT 12/02/2024 4:48 AM EDT Narrative [facility] - 12/02/2024 5:30 AM EDT Specimen slightly hemolyzed us Timothy Bai MD LAB BLOOD ORDERABLES Final Result [facility] [address] [phone] * Magnesium (12/02/2024 3:38 AM EDT) Magnesium 2.5 1.6 - 2.6 mg/dL 12/02/2024 5:30 AM EDT [facility] Blood Venipuncture / Unknown 12/02/2024 3:38 AM EDT 12/02/2024 4:48 AM EDT Narrative [facility] - 12/02/2024 5:30 AM EDT Specimen slightly hemolyzed us Timothy Bai MD LAB BLOOD ORDERABLES Final Result [facility] [address] [phone] * (ABNORMAL) CBC - Hemogram (SJ-BKR) (12/02/2024 3:38 AM EDT) WBC 3.0(L) 4.0 - 10.0 K/ L 12/02/2024 5:08 AM EDT [facility] RBC 2.43(L) 3.93 - 5.22 M/ L 12/02/2024 5:08 AM EDT [facility] Hemoglobin 7.6(L) 11.2 - 15.7 GM/DL 12/02/2024 5:08 AM EDT [facility] Hematocrit 24.2(L) 34.1 - 44.9 % 12/02/2024 5:08 AM EDT [facility] MCV 100(H) 79 - 95 fL 12/02/2024 5:08 AM EDT [facility] MCH 31.3 25.6 - 32.2 pg 12/02/2024 5:08 AM EDT [facility] MCHC 31.4(L) 32.2 - 35.5 GM/DL 12/02/2024 5:08 AM EDT [facility] RDW 17.1(H) 11.7 - 14.4 % 12/02/2024 5:08 AM EDT [facility] Platelets 57(L) 140 - 375 K/CU MM 12/02/2024 5:08 AM EDT [facility] MPV 10.5 9.4 - 12.3 fL 12/02/2024 5:08 AM EDT [facility] Blood Venipuncture / Unknown 12/02/2024 3:38 AM EDT 12/02/2024 4:47 AM EDT us Timothy Bai MD LAB BLOOD ORDERABLES Final Result Performing Organization Address City/[facility] Co de Phone Number [facility] [address] [phone] * (ABNORMAL) Hemoglobin (12/02/2024 12:04 AM EDT) Pathologist [facility] Hemoglobin 7.7(L) 11.2 - 15.7 GM/DL 12/02/2024 12:18 AM EDT [facility] Blood Venipuncture / Unknown 12/02/2024 12:04 AM EDT 12/02/2024 12:16 AM EDT us Timothy Bai MD LAB BLOOD ORDERABLES Final Result Performing Organization Address [facility] Phone Number [facility] [address] [phone] * (ABNORMAL) Glucose, Nova Meter (12/01/2024 7:34 PM EDT) [facility] POC-GLUCOSE 128(H) 70 - 110 mg/dL 12/01/2024 7:35 PM EDT [facility] Comment: In the event of poor peripheral blood flow, venous or arterial blood should be used due to the potential of erroneous results. Notified Nurse [employer] [phone] 12/01/2024 7:35 PM EDT [facility] Blood WHOLE BLOOD / Unknown 12/01/2024 7:34 PM EDT 12/01/2024 7:35 PM EDT Narrative [facility] - 12/01/2024 7:35 PM EDT [employer] ID is - [id number] us Timothy Bai MD POINT OF CARE TEST ORDERAB LES Final Result Performing Organization Address [facility] Co de Phone Number [facility] [address] [phone] * (ABNORMAL) Glucose, Nova Meter (12/01/2024 4:25 PM EDT) POC-GLUCOSE 115(H) 70 - 110 mg/dL 12/01/2024 4:26 PM EDT [facility] Comment: In the event of poor peripheral blood flow, venous or arterial blood should be used due to the potential of erroneous results. Notified Nurse [employer] [id number] 12/01/2024 4:26 PM EDT [facility] Blood WHOLE BLOOD / Unknown 12/01/2024 4:25 PM EDT 12/01/2024 4:26 PM EDT Narrative [facility] - 12/01/2024 4:26 PM EDT [employer] ID is - [id number] Timothy Bai MD POINT OF CARE TEST ORDERAB LES Final Result [facility] [address] [phone] * (ABNORMAL) Hemoglobin (12/01/2024 3:33 PM EDT) [facility] Hemoglobin 8.0(L) 11.2 - 15.7 GM/DL 12/01/2024 4:03 PM EDT [facility] Blood Venipuncture / Unknown 12/01/2024 3:33 PM EDT 12/01/2024 4:00 PM EDT Timothy Bai MD LAB BLOOD ORDERABLES Final Result [facility] [address] [phone] * Glucose, Nova Meter (12/01/2024 10:32 AM EDT) Pathologist [facility] POC-GLUCOSE 100 70 - 110 mg/dL 12/01/2024 10:33 AM EDT [facility] Comment: In the event of poor peripheral blood flow, venous or arterial blood should be used due to the potential of erroneous results. Notified Nurse [employer] [id number] 12/01/2024 10:33 AM EDT [facility] Blood WHOLE BLOOD / Unknown 12/01/2024 10:32 AM EDT 12/01/2024 10:33 AM EDT Narrative [facility] [facility] - 12/01/2024 10:33 AM EDT [employer] ID is - [id number] us Timothy Bai MD POINT OF CARE TEST ORDERAB LES Final Result Performing Organization Address [facility]/ZIP Co de Phone Number [facility] [address] [phone] * Transfuse RBC (12/01/2024 9:18 AM EDT) us Denilson Hodgson DO FS_MODEL_IP_BLOOD TRANSFUSION ORDERABLES Final Result * Transfuse RBC: 1 Units (12/01/2024 9:18 AM EDT) us Denilson Hodgson DO FS_MODEL_IP_BLOOD TRANSFUSION ORDERABLES Final Result * Glucose, Nova Meter (12/01/2024 8:12 AM EDT) [facility] POC-GLUCOSE 103 70 - 110 mg/dL 12/01/2024 8:14 AM EDT [facility] Comment: In the event of poor peripheral blood flow, venous or arterial blood should be used due to the potential of erroneous results. Protocols Followed [employer] [id number] 12/01/2024 8:14 AM EDT [facility] Blood WHOLE BLOOD / Unknown 12/01/2024 8:12 AM EDT 12/01/2024 8:14 AM EDT Narrative [facility] - 12/01/2024 8:14 AM EDT Autom[employer] Upholsterer ID is - [id number] us Timothy Bai MD POINT OF CARE TEST ORDERAB LES Final Result Performing Organization Address City/[facility]/ZIP Co de Phone Number [facility] [address] [phone] * Type and Screen (12/01/2024 7:08 AM EDT) ABO/Rh O Positive 12/01/2024 4:53 AM EDT [facility] [place] Antibody Screen Negative 12/01/2024 4:53 AM EDT [facility] [place] HISTCHK HIST CHECK PERFORMED 12/01/2024 4:53 AM EDT [facility] [place] Blood Venipuncture / Unknown 12/01/2024 7:08 AM EDT 12/01/2024 7:15 AM EDT us Denilson Hodgson DO [facility] TEST ORDERABLES Final Result Performing Organization Address [facility] Co de Phone Number [facility] ([place]) [address] [place] [address], [facility] [phone] * Glucose, Nova Meter (12/01/2024 5:37 AM EDT) Pathologist [facility] POC-GLUCOSE 107 70 - 110 mg/dL 12/01/2024 5:39 AM EDT [facility] Comment: In the event of poor peripheral blood flow, venous or arterial blood should be used due to the potential of erroneous results. Notified Nurse RBV [employer] [id number] 12/01/2024 5:39 AM EDT [facility] Blood WHOLE BLOOD / Unknown 12/01/2024 5:37 AM EDT 12/01/2024 5:39 AM EDT Narrative [facility] - 12/01/2024 5:39 AM EDT Autom[employer] Upholsterer ID is - [id number] us Timothy Bai MD POINT OF CARE TEST ORDERAB LES Final Result Performing Organization Address City/[facility]/ZIP Co de Phone Number [facility] [address] [phone] * Prepare RBC: 1 Units (12/01/2024 4:53 AM EDT) Pathologist [facility] Issue Date/Time [id number] [facility] [place] Product Identification Red Blood Cells [facility] [place]) Product Code [id number] [facility] [place] Status Information Transfused [facility] [place] Unit Number [id number] [facility] ([place]) Blood Type 5100 [facility] [place] Cross Match Results Compatible [facility] [place] us Denilson Hodgson DO FS_MODEL_IP_BLOOD BANK PRODUCT ORDERABLES Final Result [facility] [place] [address] [place] [place] [address], [facility] [phone] * ABO/RH Confirmation/Retype (12/01/2024 4:06 AM EDT) RETYPE O Positive 12/01/2024 5:15 AM EDT [facility] ([place]) Comment:[id number] Blood Venipuncture / Unknown 12/01/2024 4:06 AM EDT 12/01/2024 5:14 AM EDT us Timothy Bai MD [facility] TEST ORDERA BLES Final Result [facility] [place] [address] [place] [address], [facility] [phone] * (ABNORMAL) Ammonia (12/01/2024 4:06 AM EDT) Ammonia 75(H) 18 - 72 mol/L 12/01/2024 4:49 AM EDT [facility] Blood Venipuncture / Unknown 12/01/2024 4:06 AM EDT 12/01/2024 4:13 AM EDT us Timothy Bai MD LAB BLOOD ORDERABLES Final Result [facility] [address] [phone] * (ABNORMAL) CBC - Hemogram (SJ-BKR) (12/01/2024 4:06 AM EDT) WBC 1.7(LL) 4.0 - 10.0 K/ L 12/01/2024 4:43 AM EDT [facility] RBC 2.15(L) 3.93 - 5.22 M/ L 12/01/2024 4:43 AM EDT [facility] Hemoglobin 6.7(L) 11.2 - 15.7 GM/DL 12/01/2024 4:43 AM EDT [facility] Hematocrit 21.6(L) 34.1 - 44.9 % 12/01/2024 4:43 AM EDT [facility] MCV 101(H) 79 - 95 fL 12/01/2024 4:43 AM EDT [facility] MCH 31.2 25.6 - 32.2 pg 12/01/2024 4:43 AM EDT [facility] MCHC 31.0(L) 32.2 - 35.5 GM/DL 12/01/2024 4:43 AM EDT [facility] RDW 16.2(H) 11.7 - 14.4 % 12/01/2024 4:43 AM EDT [facility] Platelets 54(L) 140 - 375 K/CU MM 12/01/2024 4:43 AM EDT [facility] MPV 10.6 9.4 - 12.3 fL 12/01/2024 4:43 AM EDT [facility] Blood Venipuncture / Unknown 12/01/2024 4:06 AM EDT 12/01/2024 4:12 AM EDT us Timothy Bai MD LAB BLOOD ORDERABLES Final Result Performing Organization Address [facility]/ZIP Co de Phone Number [facility] [address] [phone] * (ABNORMAL) Comprehensive Metabolic Panel (12/01/2024 4:05 AM ED) Sodium 145 136 - 145 meq/L 12/01/2024 5:01 AM [facility] Potassium 4.2 3.4 - 5.1 meq/L 12/01/2024 5:01 AM [facility] Chloride 116(H) 98 - 112 meq/L 12/01/2024 5:01 AM [facility] CO2 20(L) 22 - 29 meq/L 12/01/2024 5:01 AM [facility] Calcium 8.0(L) 8.4 - 10.2 mg/dL 12/01/2024 5:01 AM [facility] Glucose 120(H) 82 - 115 mg/dL 12/01/2024 5:01 AM [facility] BUN 68.3(H) 9.8 - 20.1 mg/dL 12/01/2024 5:01 AM [facility] Creatinine 4.13(H) 0.57 - 1.11 mg/dL 12/01/2024 5:01 AM [facility] BUN/Creatinine 17 8 - 20 12/01/2024 5:01 AM [facility] eGFR (mL/min/1.73m2) 12(L) >=60 mL/min/1. 73m2 12/01/2024 5:01 AM [facility] Albumin 2.8(L) 3.5 - 5.0 g/dL 12/01/2024 5:01 AM [facility] Alkaline Phosphatase 61 40 - 150 U/L 12/01/2024 5:01 AM [facility] ALT 15 <=34 U/L 12/01/2024 5:01 AM [facility] Comment: ALT2 reagent used for testing does not contain P5P supplementation and therefore may miss ALT elevations in patients with B6 deficiency. This population may be as high as 10% in the [place], with risk factors including malabsorption, drug interactions, and alcoholic hepatitis. AST 26 11 - 34 U/L 12/01/2024 5:01 AM [facility] Comment: AST2 reagent used for testing does not contain P5P supplementation and therefore may miss AST elevations in patients with B6 deficiency. This population may be as high as 10% in the [place], with risk factors including malabsorption, drug interactions, and alcoholic hepatitis. Total Bilirubin 0.5 0.2 - 1.2 mg/dL 12/01/2024 5:01 AM EDT [facility] Protein, Total 5.7(L) 6.4 - 8.3 g/dL 12/01/2024 5:01 AM EDT [facility] Globulin 2.9 2.5 - 4.1 g/dL 12/01/2024 5:01 AM EDT [facility] Anion Gap 13(H) 4 - 12 12/01/2024 5:01 AM EDT [facility] A/G Ratio 1.0 0.7 - 1.9 12/01/2024 5:01 AM EDT [facility] Osmolality Calc 309.8 mOsm/kg 5:01 AM EDT [facility] Blood Venipuncture / Unknown 12/01/2024 4:05 AM EDT 12/01/2024 4:13 AM EDT Timothy Bai MD LAB BLOOD ORDERABLES Final Result [facility] [address] [phone] * (ABNORMAL) Magnesium (12/01/2024 4:05 AM EDT) Magnesium 2.7(H) 1.6 - 2.6 mg/dL 12/01/2024 4:57 AM EDT [facility] Blood Venipuncture / Unknown 12/01/2024 4:05 AM EDT 12/01/2024 4:13 AM EDT Timothy Bai MD LAB BLOOD ORDERABLES Final Result [facility] [address] [phone] * Glucose, Nova Meter (11/30/2024 7:38 PM EDT) POC-GLUCOSE 106 70 - 110 mg/dL 11/30/2024 7:39 PM EDT [facility] Comment: In the event of poor peripheral blood flow, venous or arterial blood should be used due to the potential of erroneous results. Notified Nurse RBV [employer] [id number] 11/30/2024 7:39 PM EDT [facility] Blood WHOLE BLOOD / Unknown 11/30/2024 7:38 PM EDT 11/30/2024 7:39 PM EDT [facility] - 11/30/2024 7:39 PM EDT Autom[employer] Upholsterer ID is - [id number] Timothy Bai MD POINT OF CARE TEST ORDERAB LES Final Result Performing Organization Address [facility]/ZIP Co de Phone Number [facility] [address] [phone] * Glucose, Nova Meter (11/30/2024 6:22 PM EDT) POC-GLUCOSE 107 70 - 110 mg/dL 11/30/2024 6:25 PM EDT [facility] Comment:In the event of poor peripheral blood flow, venous or arterial blood should be used due to the potential of erroneous results. [employer] [id number] 11/30/2024 6:25 PM EDT [facility] Blood WHOLE BLOOD / Unknown 11/30/2024 6:22 PM EDT 11/30/2024 6:25 PM EDT Narrative [facility] - 11/30/2024 6:25 PM EDT [employer] Uphol[employer]rer ID is - [id number] Timothy Bai MD POINT OF CARE TEST ORDERAB LES Final Result Performing Organization Address City/[facility]/ZIP Co de Phone Number [facility] [address] [phone] * Ultrasound renal limited (11/30/2024 4:19 PM [...] Ronnell Tom MD us Huey Hurtado MD IMFady [place] ORDERABLES Final Result * Ultrasound liver [...] Ascites ATTENDING PHYSICIAN: Dr. Haseeb Gil PHYSICIAN UM NURSE: Gabriel Velasco PA-C FINDINGS: After informed consent [...] Ascites ATTENDING PHYSICIAN: Dr. Haseeb Gil PHYSICIAN UM NURSE: Gabriel Velasco PA-C FINDINGS: After informed consent [...] Haseeb Gil. Transcribed by Gabriel Velasco PA-C. Huey Hurtado MD [facility] [place] ORDERABLES Final Result * Protein, body fluid (11/30/2024 4:03 PM EDT) Protein, Fluid 1.9 See Comment g/dL 12/01/2024 7:10 AM EDT [facility] BODY FLUID TYPE Peritoneal 12/01/2024 7:10 AM EDT [facility] Body Fluid PERITONEAL FLUID / Unknown 11/30/2024 4:03 PM EDT 12/01/2024 6:52 AM EDT Narrative [facility] - 12/01/2024 7:10 AM EDT This test has been modified from the master naval parachutist's instructions and its performance characteristics were determined by the laboratory. The reference intervals and other method performance specifications are unavailable for this test. It is recommended to interpret body fluid concentrations in comparison with the corresponding serum or plasma concentrations and to integrate test results into the clinical context. Timothy Bai MD BODY FLUIDS AND STOOLS ORD ERABLES Final Result Performing Organization Address [facility] Co de Phone Number [facility] [address] [phone] * Glucose, body fluid (11/30/2024 4:03 PM EDT) Glucose, Body Fluid 107 See Comment mg/dL 12/01/2024 7:10 AM EDT [facility] BODY FLUID TYPE Peritoneal 12/01/2024 7:10 AM EDT [facility] Body Fluid PERITONEAL FLUID / Unknown 11/30/2024 4:03 PM EDT 12/01/2024 6:52 AM EDT [facility] - 12/01/2024 7:10 AM EDT This test has been modified from the master naval parachutist's instructions and its performance characteristics were determined by the laboratory. The reference intervals and other method performance specifications are unavailable for this test. It is recommended to interpret body fluid concentrations in comparison with the corresponding serum or plasma concentrations and to integrate test results into the clinical context. us Timothy Bai MD BODY FLUIDS AND STOOLS ORD ERABLES Final Result Performing Organization Address City/[facility]/ZIP Co de Phone Number [facility] [address] [phone] * Body Fluid/CSF - Path Review () (11/30/2024 4:03 PM EDT) SENT TO PATHOLOGY FOR REVIEW Yes 12/03/2024 6:54 AM EDT [facility] Scan Result Mesothelial cells. MD German 12/02/2024 12/03/2024 6:54 AM EDT [facility] Peritoneal Fluid BODY FLUID / Unknown 11/30/2024 4:03 PM EDT 11/30/2024 4:33 PM EDT us Huey Hurtado MD BODY FLUIDS AND STOOLS ORDERABLE S Final Result [facility] [address] [phone] * DIFFERENTIAL, BODY FLUID (11/30/2024 4:03 PM EDT) Neutrophils Fluid 5 0 - 25 % 025 8:49 PM EDT [facility] Lymphocytes Fluid 46 % 025 8:49 PM EDT [facility] Unidentified Mononuclear Cells BF 49 0 - 0 % 11/30/2024 8:49 PM EDT [facility] Peritoneal Fluid BODY FLUID / Unknown 11/30/2024 4:03 PM EDT 11/30/2024 4:33 PM EDT us Huey Hurtado MD BODY FLUIDS AND STOOLS ORDERABLE S Final Result [facility] [address] [phone] * [facility] Non-Customer Logistics Manager Cytology (11/30/2024 4:03 PM EDT) AP RESULT See Note: [facility] Comment: [facility] [address] [place] [address] or [phone] Joe Carlos M.D., Pound Keeper PATIENT NAME LABORATORY NO. MARY OLIVA. [id number] AGE SEX SSN CLIENT REF # [facility] 64 1960 F [id number] 1 [facility] REQUESTING Aleksandr ATTENDING [place] [address] HUEY HURTADO DATE COLLECTED DATE RECEIVED DATE REPORTED 11/30/2024 12/01/2024 12/02/2024 DIAGNOSIS: PERITONEAL FLUID: Negative for malignant cells. MICROSCOPIC DESCRIPTION: Scattered mesothelial cells and chronic inflammatory cells are present. Professional interpretation rendered by John Sanchez M.D., F.C.A.P. at [facility], [address] [place] [address]. CLINICAL HISTORY: Melena Anasarca Acute renal failure SPECIMENS SUBMITTED: PERITONEAL FLUID GROSS SPECIMEN DESCRIPTION: 40 ccs of hazy, light yellow fluid, scant sediment, received in fixative ThinPrep slides prepared. Cell block has been examined. SKIVER BLOCKERS: SVITLANA HERNANDEZ (ASCP) REVIEWED, DIAGNOSED AND ELECTRONICALLY SIGNED BY: John Sanchez M.D., F.C.A.P. CPT CODES: [id number], [id number] Peritoneal Fluid BODY FLUID / Unknown 11/30/2024 4:03 PM EDT us Huey Hurtado MD PATHOLOGY/CYTOLOGY ORDERABLES Fi nal Result [facility] [address] [place] [address] * AFB Culture And Stain (11/30/2024 4:03 PM EDT) Result No Acid Fast Bacilli isolated at 6 weeks 01/11/2025 5:00 PM EDT [facility] AFB Smear No acid fast bacilli seen 01/11/2025 5:00 PM EDT [facility] Peritoneal Fluid BODY FLUID / Unknown 11/30/2024 4:03 PM EDT 11/30/2024 4:34 PM EDT Narrative [facility] - 01/11/2025 5:00 PM EDT Specimen Description: peritoneal fluid us Huey Hurtado MD MICROBIOLOGY - GENERAL ORDERABLE S Final Result [facility] [address] [phone] * Fungus Culture W/ROSA MARIA Or Nimisha Ink (11/30/2024 4:03 PM EDT) Result No fungus isolated at 6 weeks. 01/11/2025 5:00 PM EDT [facility] ROSA MARIA Prep No fungal elements seen 01/11/2025 5:00 PM EDT [facility] Peritoneal Fluid BODY FLUID / Unknown 11/30/2024 4:03 PM EDT 11/30/2024 4:34 PM EDT [facility] - 01/11/2025 5:00 PM EDT Specimen Description: peritoneal fluid us Huey Hurtado MD MICROBIOLOGY - GENERAL ORDERABLE S Final Result Performing Organization Address City/[facility]/ZIP Co de Phone Number [facility] [address] [phone] * Anaerobic Culture (11/30/2024 4:03 PM EDT) Result No Anaerobic growth 12/05/2024 6:34 AM EDT [facility] Peritoneal Fluid BODY FLUID / Unknown 11/30/2024 4:03 PM EDT 11/30/2024 4:34 PM EDT [facility] - 12/05/2024 6:34 AM EDT Specimen Description: peritoneal fluid us Huey Hurtado MD MICROBIOLOGY - GENERAL ORDERABLE S Final Result Performing Organization Address City/[facility]/ZIP Co de Phone Number [facility] [address] [phone] * Body Fluid Culture + Gram Stain (11/30/2024 4:03 PM EDT) Result No growth 12/03/2024 9:07 AM EDT [facility] Gram Stain Result No organisms seen 12/03/2024 9:07 AM EDT [facility] Gram Stain Result No cells seen 12/03/2024 9:07 AM EDT [facility] Peritoneal Fluid BODY FLUID / Unknown 11/30/2024 4:03 PM EDT 11/30/2024 4:34 PM EDT Narrative [facility] - 12/03/2024 9:07 AM EDT Specimen Description: peritoneal fluid us Huey Hurtado MD MICROBIOLOGY - GENERAL ORDERABLE S Final Result [facility] [address] [phone] * (ABNORMAL) Body fluid cell count with differential (11/30/2024 4:03 PM EDT) Appearance Cloudy(A) Clear 11/30/2024 8:49 PM EDT [facility] Color Yellow 11/30/2024 8:49 PM EDT [facility] BODY FLUID TYPE Peritoneal 11/30/2024 8:49 PM EDT [facility] Auto WBC/Nucleated Cells BF 85 /uL 11/30/2024 8:49 PM EDT [facility] Comment: Please refer to specific WBC/Nucleated Cell Count Body Fluid reference ranges below: For Pleural: 0-1000 Peritoneal: 0-1000 Pericardial:0-1000 Synovial: 0-200 Auto RBC BF <3,000 /uL 11/30/2024 8:49 PM EDT [facility] Comment: Please refer to specific RBC Cell Count Body Fluid reference ranges below: Pleural: 0-10,000 Peritoneal: 0-10,000 Pericardial:0-10,000 Synovial:0-30 Peritoneal Fluid BODY FLUID / Unknown 11/30/2024 4:03 PM EDT 11/30/2024 4:33 PM EDT Narrative [facility] - 11/30/2024 8:49 PM EDT There is normally no readily obtainable pleural, peritoneal and pericardial fluid, hence normal elements for these potential fluids are not defined. us Huey Hurtado MD BODY FLUIDS AND STOOLS ORDERABLE S Final Result Performing Organization Address [facility]/ZIP Co de Phone Number [facility] [address] [phone] * Lactate dehydrogenase (LDH), body fluid (11/30/2024 4:03 PM EDT) LDH, Fluid 71 See Comment U/L 11/30/2024 6:19 PM EDT [facility] BODY FLUID TYPE Peritoneal 11/30/2024 6:19 PM EDT [facility] Peritoneal Fluid BODY FLUID / Unknown 11/30/2024 4:03 PM EDT 11/30/2024 4:33 PM EDT Narrative [facility] - 11/30/2024 6:19 PM EDT This test has been modified from the master naval parachutist's instructions and its performance characteristics were determined [...] ORDERABLE S Final Result Performing Organization Address [facility] Co de Phone Number [facility] [address] [phone] * Protein / creatinine ratio, urine (11/30/2024 11:35 AM EDT) Creatinine, Ur 62.00 47.00 - 110.00 mg/dL 11/30/2024 12:36 PM EDT [facility] Protein Creatinine Ratio 0.19 <=0.20 11/30/2024 12:36 PM EDT [facility] Protein, Urine 12 1 - 14 mg/dL 11/30/2024 12:36 PM EDT [facility] Urine 11/30/2024 11:3 5 AM EDT 11/30/2024 12:15 PM EDT us Hill Boo MD URINE ORDERABLES Final Result Performing Organization Address [facility]/State/ZIP Co de Phone Number [facility] [address] [phone] * Urea Nitrogen, random urine (11/30/2024 11:35 AM EDT) Urea Nitrogen, Ur 305 mg/dL 11/30/2024 12:36 PM EDT [facility] Comment:Reference Range not established Urine 11/30/2024 11:3 5 AM EDT 11/30/2024 12:15 PM EDT us Hill Boo MD URINE ORDERABLES Final Result Performing Organization Address [facility]/ZIP Co de Phone Number [facility] [address] [phone] * Sodium, random urine (11/30/2024 11:35 AM EDT) Sodium Urine 83 See Comment meq/L 11/30/2024 12:36 PM EDT [facility] Comment:Reference Range not established Urine 11/30/2024 11:3 5 AM EDT 11/30/2024 12:15 PM EDT us Hill Boo MD URINE ORDERABLES Final Result Performing Organization Address City/[facility]/ZIP Co de Phone Number [facility] [address] [phone] * (ABNORMAL) Urinalysis Microscopic Only (11/30/2024 11:35 AM EDT) WBC, UA 21-50(A) None Seen /HPF 11/30/2024 12:06 PM EDT [facility] RBC, UA 0-2(A) None Seen /HPF 11/30/2024 12:06 PM EDT [facility] Bacteria, UA 1+(A) None Seen, Trace 11/30/2024 12:06 PM EDT [facility] Mucus 1+(A) None Seen 11/30/2024 12:06 PM EDT [facility] SQUAMOUS EPITHELIAL 3-5(A) None Seen /HPF 11/30/2024 12:06 PM EDT [facility] HYALINE CASTS 21-50(A) None Seen /LPF 11/30/2024 12:06 PM EDT [facility] Urine URINE SPECIMEN COLLECTION, CLEAN CATCH / Unknown 11/30/2024 11:35 AM EDT 11/30/2024 11:41 AM EDT us Destiney Llanes APRN URINE ORDERABLES Final Resu lt Performing Organization Address [facility]/ZIP Co de Phone Number [facility] [address] [place] [address], [facility] [phone] * Urine Culture (11/30/2024 11:35 AM EDT) Result Recollect Specimen - 3 or more organisms suggests contamination 12/01/2024 6:49 AM EDT [facility] Urine URINE SPECIMEN COLLECTION, CLEAN CATCH / Unknown 11/30/2024 11:35 AM EDT 11/30/2024 11:41 AM EDT us Destiney Llanes APRN MICROBIOLOGY - GENERAL ORDE RABLES Final Result Performing Organization Address [facility] Hospital/[facility] Co de Phone Number [facility] [address] [place] [address] * (ABNORMAL) Urinalysis, Reflex Microscopic and Culture If Indicated (11/30/2024 11:35 AM EDT) Color, UA Light Yellow 11/30/2024 12:06 PM EDT [facility] Clarity, UA Turbid(A) Clear 11/30/2024 12:06 PM EDT [facility] Specific [place], UA 1.011 1.005 - 1.030 11/30/2024 12:06 PM EDT [facility] pH, UA 5.0(L) 6.0 - 8.0 11/30/2024 12:06 PM EDT [facility] Leukocytes, UA 500 Félix/uL(A) Negative 11/30/2024 12:06 PM EDT [facility] Nitrite, UA Negative Negative 11/30/2024 12:06 PM EDT [facility] Protein, UA Negative Negative 11/30/2024 12:06 PM EDT [facility] Glucose, UA Normal Normal 11/30/2024 12:06 PM EDT [facility] Ketones, UA Negative Negative 11/30/2024 12:06 PM EDT [facility] Bilirubin, UA Negative Negative 11/30/2024 12:06 PM EDT [facility] Blood, UA Negative Negative 11/30/2024 12:06 PM EDT [facility] Urobilinogen, UA Normal Normal 11/30/2024 12:06 PM EDT [facility] Specimen Source Urine, Clean Catch 11/30/2024 12:06 PM EDT [facility] Urine URINE SPECIMEN COLLECTION, CLEAN CATCH / Unknown 11/30/2024 11:35 AM EDT 11/30/2024 11:41 AM EDT us Destiney Llanes CHIEF CLIENT OFFICER URINE ORDERABLES Final Resu lt [facility] [address] [place] [address] * XR chest AP portable (11/30/2024 11:29 [...] Transcribed by Marielos Sotelo PA-C. Destiney Llanes CHIEF CLIENT OFFICER IM DIAGNOSTIC IMAGING [facility] Final Result * (ABNORMAL) Monoclonal Protein Study, [...] - 1.51 g/dL 12/03/2024 12:57 PM EDT [facility] Immunofixation MAEGAN Done 12/03/2024 12:57 PM EDT [facility] Immunoglobulin G 1484 768 - 1632 mg/dL 12/03/2024 12:57 PM EDT [facility] Immunoglobulin A 686(H) 68 - 408 mg/dL 12/03/2024 12:57 PM EDT [facility] Immunoglobulin M 126 35 - 263 mg/dL 12/03/2024 12:57 PM EDT [facility] Monoclonal Protein Not Applicable <=0.00 g/dL 12/03/2024 12:57 PM EDT [facility] [place] Qnt Free Light Chains 173.10(H) 3.30 - 19.40 mg/L 12/03/2024 12:57 PM EDT [facility] Comment: INTERPRETIVE INFORMATION: [place] Qnt Free Light Chains Undetected antigen excess is a rare event but cannot be excluded. Free light chain results should always be interpreted in conjunction with other clinical and laboratory findings. [place] Qnt Free Light Chains 123.84(H) 5.71 - 26.30 mg/L 12/03/2024 12:57 PM EDT [facility] [employer] Comment: INTERPRETIVE INFORMATION: [place] Qnt Free Light Chains Undetected antigen excess is a rare event but cannot be excluded. Free light chain results should always be interpreted in conjunction with other clinical and laboratory findings. [place]/Lambda Free Light Chain Ratio 1.40 0.26 - 1.65 12/03/2024 12:57 PM EDT [facility] SPEP/MAEGAN Interpretation See Note 12/03/2024 12:57 PM EDT [facility] [employer] Comment: Restricted band in the beta region [...] Serum See Note 12/03/2024 12:57 PM EDT [facility] [employer] Comment: Authorized individuals can access the [facility] Enhanced Report with an [employer] Connect account using the following link. Your local lab can assist you in obtaining the patient report if you don't have a Connect account. [email or web address] Performed By: [employer] [address] [place] [id number] Regional Sales Coordinator: Lalo Mortensen MD, PhD CLIA Number: [id number] Blood Venipuncture / Unknown 11/30/2024 11:01 AM EDT 11/30/2024 12:17 PM EDT Hill Boo MD LAB BLOOD ORDERABLES Final Resu lt [employer] [address] [phone] * Alpha Fetoprotein Tumor Marker(SENDOUT) (11/30/2024 11:01 AM EDT) Alpha Fetoprotein Tumor Marker 2 0 - 9 ng/mL 12/01/2024 3:41 PM EDT [employer] Comment: INTERPRETIVE INFORMATION: Alpha Fetoprotein Tumor Marker [...] reference intervals for this test in the [facility] Test Directory (Echovox). Performed By: [employer] [address] [place] [address] Regional Sales Coordinator: Lalo Mortensen MD, PhD CLIA Number: [id number] Blood Venipuncture / Unknown 11/30/2024 11:01 AM EDT 11/30/2024 11:06 AM EDT Destiney Llanes APRN LAB BLOOD ORDERABLES Final Result Performing Organization Address City/[facility]/ZIP Co de Phone Number [employer] [address] [phone] * Glucose, Nova Meter (11/30/2024 10:46 AM EDT) POC-GLUCOSE 102 70 - 110 mg/dL 11/30/2024 10:47 AM EDT [facility] Comment: In the event of poor peripheral blood flow, venous or arterial blood should be used due to the potential of erroneous results. Notified Nurse [employer] [id number] 11/30/2024 10:47 AM EDT [facility] Blood WHOLE BLOOD / Unknown 11/30/2024 10:46 AM EDT 11/30/2024 10:47 AM EDT Narrative [facility] - 11/30/2024 10:47 AM EDT [employer] ID is - [id number] Timothy Bai MD POINT OF CARE TEST ORDERAB LES Final Result Performing Organization Address [facility]/ZIP Co de Phone Number [facility] [address] [phone] * (ABNORMAL) Vitamin D, 25-Hydroxy (11/30/2024 8:20 AM EDT) Vitamin D 25-Hydroxy 22.0(L) 30 - 80 ng/mL 11/30/2024 9:48 AM EDT [facility] Blood Venipuncture / Unknown 11/30/2024 8:20 AM EDT 11/30/2024 9:08 AM EDT Timothy Bai MD LAB BLOOD ORDERABLES Final Result Performing Organization Address [facility]/ZIP Co de Phone Number [facility] [address] [phone] * Hemoglobin A1c (11/30/2024 8:20 AM EDT) Hemoglobin A1C 4.9 4.0 - 5.6 % 11/30/2024 9:17 AM EDT [facility] Comment: Hemoglobin A1C levels are related to mean glucose during the preceding 2-3 months. Less than 7% demonstrates glycemic control in diabetic patients. Hemoglobin AlC % Suggested Diagnosis > or = 6.5 Diabetic 5.7 - 6.4 Prediabetic <5.7 Non-diabetic eAVG Glucose 93.93 70 - 126 mg/dL 11/30/2024 9:17 AM EDT [facility] Blood Venipuncture / Unknown 11/30/2024 8:20 AM EDT 11/30/2024 9:07 AM EDT us Huey Hurtado MD LAB BLOOD ORDERABLES Final Resul t [facility] [address] [phone] * ECHO COMPLETE (DOPPLER / COLOR) WO CONTRAST (11/30/2024 7:50 AM EDT) Anatomical Region Laterality Modality Heart Vascular Ultraso und 11/30/2024 7:25 AM EDT Narrative 11/30/2024 10:46 AM EDT TRANSTHORACIC ECHOCARDIOGRAPHY REPORT Demographics Patient Name: RIN JONES : 1960 Age: 64 year(s) Corporate ID Number: [id number] Gender Female Electoral Officer: Giovanna Rock Height: 67 inches [facility] Referring Physician: HUEY HURTADO Weight: 225 pounds [...] 1.35 m/s E/A ratio: 0.97 m/s Volume exkmxdxkr599.99 LV length: 8.51 cm ml Volume lqnlglca98.96 ml LVOT diameter: 1.79 cm Normal sized [...] Valve TR velocity: 2.51 m/s TR gradient: 25.37524 mmHg Estimated RAP: 3 mmHg RVSP: 28.12 [...] 1960 Age: 64 year(s) Corporate ID Number: [id number] Gender Female Electoral Officer: Giovanna Rock Height: 67 inches [facility] Referring Physician: HUEY HURTADO Weight: 225 pounds [...] 1.35 m/s E/A ratio: 0.97 m/s Volume zoislclsy883.99 LV length: 8.51 cm ml Volume rzbrzity19.96 ml LVOT diameter: 1.79 cm Normal sized [...] Valve TR velocity: 2.51 m/s TR gradient: 25.01714 mmHg Estimated RAP: 3 mmHg RVSP: 28.12 [...] - 110 mg/dL 11/30/2024 5:17 AM EDT [facility] Comment: In the event of poor peripheral blood flow, venous or arterial blood should be used due to the potential of erroneous results. Protocols Followed [employer] [id number] 11/30/2024 5:17 AM EDT [facility] Blood WHOLE BLOOD / Unknown 11/30/2024 5:13 AM EDT 11/30/2024 5:17 AM EDT Narrative [facility] - 11/30/2024 5:17 AM EDT [employer] ID is - [id number] Albert Garcia MD POINT OF CARE TEST ORDERABLES Fi nal Result [facility] [address] [phone] * Blood Culture (11/30/2024 3:42 AM EDT) Result No growth in 5 days 12/05/2024 5:01 AM EDT [facility] Blood ENTIRE RIGHT UPPER ARM / Unknown Venipuncture / Unknown 11/30/2024 3:42 AM EDT 11/30/2024 4:09 AM EDT us Huey Hurtado MD MICROBIOLOGY - GENERAL ORDERABLE S Final Result [facility] [address] [phone] * Folate, Serum (11/30/2024 3:40 AM EDT) Folate 7.0 7.0 - 31.4 ng/mL 11/30/2024 6:08 PM EDT [facility] Blood Venipuncture / Unknown 11/30/2024 3:40 AM EDT 11/30/2024 4:09 AM EDT us Laura Rangel MD LAB BLOOD ORDERABLES Final Res ult [facility] [address] [phone] * (ABNORMAL) Iron and TIBC (11/30/2024 3:40 AM EDT) Iron 63 50 - 170 ug/dL 11/30/2024 6:13 PM EDT [facility] TIBC 183(L) 250 - 435 ug/dL 11/30/2024 6:13 PM EDT [facility] % Saturation 34 % 11/30/2024 6:13 PM EDT [facility] UIBC 120 11/30/2024 6:13 PM EDT [facility] Blood Venipuncture / Unknown 11/30/2024 3:40 AM EDT 11/30/2024 4:09 AM EDT us Laura Rangel MD LAB BLOOD ORDERABLES Final Res ult Performing Organization Address [facility]/ZIP Co de Phone Number [facility] [address] [phone] * Ferritin (11/30/2024 3:40 AM EDT) Ferritin 168.51 4.63 - 204.00 ng/mL 11/30/2024 6:08 PM EDT [facility] Blood Venipuncture / Unknown 11/30/2024 3:40 AM EDT 11/30/2024 4:09 AM EDT us Laura Rangel MD LAB BLOOD ORDERABLES Final Res ult Performing Organization Address [facility]/ZIP Co de Phone Number [facility] [address] [phone] * (ABNORMAL) Lactate dehydrogenase (LDH) (11/30/2024 3:40 AM EDT) LDH 261(H) 125 - 220 U/L 11/30/2024 12:18 PM EDT [facility] Blood Venipuncture / Unknown 11/30/2024 3:40 AM EDT 11/30/2024 4:09 AM EDT us Hill Boo MD LAB BLOOD ORDERABLES Final Resu lt Performing Organization Address [facility]/ZIP Co de Phone Number [facility] [address] [phone] * (ABNORMAL) Creatine Kinase (CK) (11/30/2024 3:40 AM EDT) Total CK 356(H) 29 - 168 U/L 11/30/2024 12:18 PM EDT [facility] Blood Venipuncture / Unknown 11/30/2024 3:40 AM EDT 11/30/2024 4:09 AM EDT us Hill Boo MD LAB BLOOD ORDERABLES Final Resu lt Performing Organization Address City/[facility]/ZIP Co de Phone Number [facility] [address] [phone] * (ABNORMAL) Uric acid (11/30/2024 3:40 AM EDT) Uric Acid 11.2(H) 2.5 - 6.2 mg/dL 11/30/2024 12:18 PM EDT [facility] Blood Venipuncture / Unknown 11/30/2024 3:40 AM EDT 11/30/2024 4:09 AM EDT us Hill Boo MD LAB BLOOD ORDERABLES Final Resu lt Performing Organization Address [facility] Co de Phone Number [facility] [address] [phone] * Vitamin B12 (11/30/2024 3:40 AM EDT) Vitamin B12 678 213 - 816 pg/mL 11/30/2024 8:10 AM EDT [facility] Blood Venipuncture / Unknown 11/30/2024 3:40 AM EDT 11/30/2024 4:09 AM EDT Timothy Bai MD LAB BLOOD ORDERABLES Final Result Performing Organization Address City/[facility]/ZIP Co de Phone Number [facility] [address] [phone] * Iron, serum (11/30/2024 3:40 AM EDT) Iron 64 50 - 170 ug/dL 11/30/2024 8:10 AM EDT [facility] Blood Venipuncture / Unknown 11/30/2024 3:40 AM EDT 11/30/2024 4:09 AM EDT us Timothy Bai MD LAB BLOOD ORDERABLES Final Result Performing Organization Address City/[facility] Co de Phone Number [facility] [address] [phone] * (ABNORMAL) CBC - Hemogram (SJ-BKR) (11/30/2024 3:40 AM EDT) WBC 1.9(LL) 4.0 - 10.0 K/ L 11/30/2024 4:25 AM EDT [facility] RBC 2.63(L) 3.93 - 5.22 M/ L 11/30/2024 4:25 AM EDT [facility] Hemoglobin 8.2(L) 11.2 - 15.7 GM/DL 11/30/2024 4:25 AM EDT [facility] Hematocrit 26.3(L) 34.1 - 44.9 % 11/30/2024 4:25 AM EDT [facility] MCV 100(H) 79 - 95 fL 11/30/2024 4:25 AM EDT [facility] MCH 31.2 25.6 - 32.2 pg 11/30/2024 4:25 AM EDT [facility] MCHC 31.2(L) 32.2 - 35.5 GM/DL 11/30/2024 4:25 AM EDT [facility] RDW 16.2(H) 11.7 - 14.4 % 11/30/2024 4:25 AM EDT [facility] Platelets 64(L) 140 - 375 K/CU MM 11/30/2024 4:25 AM EDT [facility] MPV 10.4 9.4 - 12.3 fL 11/30/2024 4:25 AM EDT [facility] Blood Venipuncture / Unknown 11/30/2024 3:40 AM EDT 11/30/2024 4:10 AM EDT us Huey Hurtado MD LAB BLOOD ORDERABLES Final Resul t [facility] [address] [place] [address], [facility] [phone] * (ABNORMAL) Comprehensive Metabolic Panel (11/30/2024 3:40 AM EDT) Sodium 144 136 - 145 meq/L 11/30/2024 5:07 AM EDT [facility] Potassium 4.6 3.4 - 5.1 meq/L 11/30/2024 5:07 AM EDT [facility] Chloride 115(H) 98 - 112 meq/L 11/30/2024 5:07 AM EDT [facility] CO2 20(L) 22 - 29 meq/L 11/30/2024 5:07 AM EDT [facility] Calcium 8.3(L) 8.4 - 10.2 mg/dL 11/30/2024 5:07 AM EDT [facility] Glucose 86 82 - 115 mg/dL 11/30/2024 5:07 AM EDT [facility] BUN 74.2(H) 9.8 - 20.1 mg/dL 11/30/2024 5:07 AM EDT [facility] Creatinine 4.15(H) 0.57 - 1.11 mg/dL 11/30/2024 5:07 AM T [facility] BUN/Creatinine 18 8 - 20 11/30/2024 5:07 AM EDT [facility] eGFR (mL/min/1.73m2) 12(L) >=60 mL/min/1. 73m2 11/30/2024 5:07 AM EDT [facility] Albumin 2.2(L) 3.5 - 5.0 g/dL 11/30/2024 5:07 AM EDT [facility] Alkaline Phosphatase 83 40 - 150 U/L 11/30/2024 5:07 [facility] ALT 17 <=34 U/L 11/30/2024 5:07 AM [facility] Comment: ALT2 reagent used for testing does not contain P5P supplementation and therefore may miss ALT elevations in patients with B6 deficiency. This population may be as high as 10% in the [place], with risk factors including malabsorption, drug interactions, and alcoholic hepatitis. AST 43(H) 11 - 34 U/L 11/30/2024 5:07 AM EDT [facility] Comment: AST2 reagent used for testing does not contain P5P supplementation and therefore may miss AST elevations in patients with B6 deficiency. This population may be as high as 10% in the [place], with risk factors including malabsorption, drug interactions, and alcoholic hepatitis. Total Bilirubin 0.8 0.2 - 1.2 mg/dL 11/30/2024 5:07 AM EDT [facility] Protein, Total 6.5 6.4 - 8.3 g/dL 11/30/2024 5:07 AM EDT [facility] Globulin 4.3(H) 2.5 - 4.1 g/dL 11/30/2024 5:07 AM EDT [facility] Anion Gap 14(H) 4 - 12 11/30/2024 5:07 AM EDT [facility] A/G Ratio 0.5(L) 0.7 - 1.9 11/30/2024 5:07 AM EDT [facility] Osmolality Calc 308.1 mOsm/kg 5:07 AM EDT [facility] Blood Venipuncture / Unknown 11/30/2024 3:40 AM EDT 11/30/2024 4:09 AM EDT Huey Hurtado MD LAB BLOOD ORDERABLES Final Resul t Performing Organization Address City/State/[facility] Co de Phone Number [facility] [address] [phone] * Procalcitonin (11/30/2024 3:40 AM EDT) Procalcitonin 0.26 See Comment ng/mL 11/30/2024 5:07 AM EDT [facility] Comment: Sepsis comment <0.5 Antibiotics [...] ORDERABLES Final Resul t Performing Organization Address [facility] de Phone Number [facility] [address] [phone] * Blood Culture (11/30/2024 3:40 AM EDT) Result No growth in 5 days 12/05/2024 5:01 AM EDT [facility] Blood ENTIRE LEFT UPPER ARM / Unknown Venipuncture / Unknown 11/30/2024 3:40 AM EDT 11/30/2024 4:09 AM EDT us Huey Hurtado MD MICROBIOLOGY - GENERAL ORDERABLE S Final Result Performing Organization Address [facility] Phone Number [facility] [address] [phone] * Ammonia (11/30/2024 3:40 AM EDT) Ammonia 59 18 - 72 mol/L 11/30/2024 4:51 AM EDT [facility] Blood Venipuncture / Unknown 11/30/2024 3:40 AM EDT 11/30/2024 4:10 AM EDT us Huey Hurtado MD LAB BLOOD ORDERABLES Final Resul t Performing Organization Address [facility] de Phone Number [facility] [address] [phone] * (ABNORMAL) Magnesium (11/30/2024 3:40 AM EDT) Magnesium 2.7(H) 1.6 - 2.6 mg/dL 11/30/2024 5:07 AM EDT [facility] Blood Venipuncture / Unknown 11/30/2024 3:40 AM EDT 11/30/2024 4:09 AM EDT us Huey Hurtado MD LAB BLOOD ORDERABLES Final Resul t Performing Organization Address City/[facility] Co de Phone Number [facility] [address] [phone] * Lactic Acid with reflex (11/30/2024 3:40 AM EDT) Lactic Acid Level (mmol/L) 0.9 0.5 - 2.2 mmol/L 11/30/2024 5:37 AM EDT [facility] Blood Venipuncture / Unknown 11/30/2024 3:40 AM EDT 11/30/2024 4:10 AM EDT Result Archana Hurtado MD LAB BLOOD ORDERABLES Final Resul t Performing Organization Address [facility] Co al Phone Number [facility] [address] [phone] * aPTT (11/30/2024 3:40 AM EDT) aPTT 27.7 22.0 - 32.0 seconds 11/30/2024 4:32 AM EDT [facility] Blood Venipuncture / Unknown 11/30/2024 3:40 AM EDT 11/30/2024 4:10 AM EDT us Huey Hurtado MD LAB BLOOD ORDERABLES Final Resul t Performing Organization Address City/[facility] Co de Phone Number [facility] [address] [phone] * (ABNORMAL) Prothrombin time/INR (11/30/2024 3:40 AM EDT) Protime 12.9(H) 9.0 - 12.0 seconds 11/30/2024 4:32 AM EDT [facility] INR 1.17(H) 0.80 - 1.10 11/30/2024 4:32 AM EDT [facility] Comment: Recommended therapeutic ranges using [...] MD LAB BLOOD ORDERABLES Final Resul t [facility] [address] [phone] * EKG-SCANNED (11/30/2024) Narrative 11/30/2024 Ordered by [...] 200 mg Daily, oral, First dose on 12/04/24 at 1130 Given 12/14/2024 9:30 AM EDT [...] hour PRN, buccal, sore throat, Starting on 12/04/24 at 0807 bumetanide (BUMEX) injection 0.5 mg 0.5 mg Once, intravenous, On Denise 12/02/24 at 1130, For 1 dose Given 12/02/2024 1:15 PM EDT 0.5 mg bumetanide (BUMEX) injection 1 mg 1 mg Once, intravenous, On 12/04/24 at 1130, For 1 dose Given 12/04/2024 [...] Blood Sugar is less than 180 beteween 2312-5101, DO NOT give corrective insulin unless otherwise [...] (BLISTEX) 0.6-0.5-1.1-0.5 % topical ointment Starting on Fri12/04/24 at 0045, For 1 dose, Created by [...] mg Every evening, oral, First dose on Fri12/11/24 at 1700, * DO NOT CRUSH THIS [...] (Given - Provider: Mary Lou Sidhu RN) 0902 (Given - Provider: Olimpia Mcmillan, DAYANARA) 0930 (Given - Provider: Olimpia Mcmillan, DAYANARA) atorvastatin (LIPITOR) tablet 20 mg 20 mg Every Night, oral, First dose on Fri11/30/24 at 2100 2144 (Given - Provider: Alberto Bernal RN) 2030 (Given - Provider: Jamal Lopez, DAYANARA) bumetanide (BUMEX) tablet 2 mg 2 mg 2 times daily, oral, First dose (after last modification) on Fri12/10/24 at 1300 0839 (Given - Provider: Mary Lou Sidhu RN)2144 (Given - Provider: Alberto Bernal, DAYANARA) 0903 (Given - Provider: Olimpia Mcmillan, DAYANARA)2030 (Given - Provider: Jamal Lopez RN) 0930 (Given - Provider: Olimpia Mcmillan, DAYANARA) ergocalciferol (DRISDOL) capsule 50,000 Units 50,000 Units Every 7 days, oral, First dose on Fri11/30/24 at 1400, * DO NOT CRUSH THIS DOSAGE FORM * 1607 (Given - Provider: Olimpia Mcmillan, DAYANARA) gabapentin (NEURONTIN) capsule 100 mg 100 mg 3 times daily, oral, First dose (after last modification) on Fri12/07/24 at 1500 0840 (Given - Provider: Mary Lou Sidhu, DAYANARA)1515 (Given - Provider: Mary Lou Sidhu, DAYANARA)2144 (Given - Provider: Alberto Bernal RN) 0903 (Given - Provider: Olimpia Mcmillan, DAYANARA)1420 (Given - Provider: Olimpia Mcmillan, DAYANARA)2031 (Given - Provider: Jamal Lopez RN) 0930 (Given - Provider: Olimpia Mcmillan, DAYANARA)1608 (Given - Provider: Olimpia Mcmillan, DAYANARA) insulin lispro (HUMALOG, ADMELOG) injection 0-18 Units 0-18 Units 4 times daily (before meals and nightly), subcutaneous, First dose on Fri11/30/24 at 0730, If Blood Sugar is less than 180 beteween [id number], DO NOT give corrective insulin unless otherwise [...] Olimpia Mcmillan RN)1648 (Given - Provider: Olimpia Mcmillan, DAYANARA)2038 (Given - Provider: Jamal Lopez RN) 0647 (Not Given - Provider: Jamal Lopez RN - Reason: Order parameters not met)1102 (Given - Provider: Olimpia Mcmillan, DAYANARA)1608 (Given - Provider: Olimpia Mcmillan, DAYANARA) lactulose (CHRONULAC) 10 gram/15 mL solution 10 g 10 g 2 times daily, oral, First dose (after last modification) on Fri12/05/24 at 2100 0840 (Given - Provider: Mary Lou Sidhu RN)214 (Given - Provider: Alberto Bernal RN) 09 (Given - Provider: Olimpia Mcmillan RN)2031 (Given - Provider: Jamal Lopez RN) 0931 (Given - Provider: Olimpia Mcmillan, DAYANARA) metOLazone (ZAROXOLYN) tablet 2.5 mg 2.5 mg Daily, oral, First dose (after last reorder) on Fri12/11/24 at 1030 0858 (Given - Provider: Mary Lou Sidhu RN) 0903 (Given - Provider: Olimpia Mcmillan, DAYANARA) 0930 (Given - Provider: Olimpia Mcmillan, DAYANARA) pantoprazole (PROTONIX) EC tablet 40 mg 40 mg 2 times daily, oral, First dose on 12/06/24 at 1030, * DO NOT CRUSH THIS DOSAGE FORM * 0840 (Given - Provider: Mary Lou Sidhu RN)2144 (Given - Provider: Alberto Bernal RN) 09 (Given - Provider: Olimpia Mcmillan, DAYANARA)2030 (Given - Provider: Jamal Lopez, DAYANARA) 0931 (Given - Provider: Olimpia Mcmillan, DAYANARA) rifAXIMin (XIFAXAN) tablet 550 mg 550 mg 2 times daily, oral, First dose on Fri11/30/24 at 1130 0840 (Given - Provider: Mary Lou Sidhu RN)2144 (Given - Provider: Alberto Bernal RN) 0902 (Given - Provider: Olimpia Mcmillan, DAYANARA)203 (Given - Provider: Jamal Lopez RN) 0930 (Given - Provider: Olimpia Mcmillan, DAYANARA) [...] Mcmillan RN) 0930 (Given - Provider: Olimpia Mcmillan, DAYANARA) tamsulosin (FLOMAX) capsule 0.4 mg 0.4 mg Every evening, oral, First dose on Fri12/11/24 at 1700, * DO NOT CRUSH THIS DOSAGE FORM * 1606 (Given - Provider: Mary Lou Sidhu RN) 1648 (Given - Provider: Olimpia Mcmillan RN) 1608 (Given - Provider: Olimpia Mcmillan RN) PRN Medication Order 12/12/2024 12/13/2024 12/14/2024 acetaminophen [...] IV (CANCELED) Routine, Once, On Fri11/30/24 at 0253, For 1 occurrence And sodium chloride flush 10 mLJump to med 10 mL As needed, intravenous, line care, Starting on Fri11/30/24 at 0252, Every 8 hours and PRN to flush documented in this encounter Care Teams [place] Caster Relationship Specialty Start Date End Date [facility] [place] [address] PCP - General 11/30/24 12/13/24 Provider, Not In System [place] PCP - General 12/14/24 documented as of this encounter
--- OUTSIDE RECORDS SUMMARY | 2024-12-01 08:55 | XMS_ITS | Encounter Summary ---
Author Organization [facility] Address [address] [place] [address] Care Team Providers Care Wardrobe Manager Name Role Phone [facility] Francesca Find-A-Doc Primary Care Provider Reason for Visit * Auth/Cert (Routine) Specialty Diagnoses / Procedures Referred By Mayela may Referred To Contact Diagnoses Anasarca ACUTE RENAL FAILURE [address] Medical Telemetry Unit [address] [place] [phone] Phone: tel: fax: [address] Medical Telemetry Unit 1 [place] [address] Phone: tel: fax: Referral ID Status Reason Start Date Expiration Date Visits Re quested Visits Authorized [id number] 1 1 Encounter Details Date Type Department Care Team (Late st Contact Info) Description 12/01/2024 8:55 AM EDT Anesthesia Event [facility] Endoscopy 1 [place] [address] Ashtyn Sanchez MD [address] [place], [place] [id number] Anesthesia Record Procedure Summary Procedure Name Responsible [...] Time: 1250 11/29/241999 by Nuria Patel RN 12/05/241249 by Gianna Senior RN Peripheral IV Placement Date: 11/29/24; Placement Time: 1999; Size: 20 G; Orientation: Anterior, Left; Location: Forearm; Removal Date: 12/08/24; Removal Reason: Site change 11/29/241999 by Nuria Patel RN 12/08/24 0000 by Virginia Haynes RN ETT Placement Date 12/01; Placement Time 900 (created via procedure documentation); Airway Size 7.5; Airway Cuffed Yes; Removal Date 12/01/24; Removal Time 30 12/01/24 09 by Rolo Stauffer CRNA 12/01/24929 by [...] your living situation today? I have a [facility] place to live 11/30/2024 Think [...] Do you speak a language other than Spanish at [facility]? No 11/30/2024 Do you want help [...] Procedure Summary Date: 12/01/24 Room / Location: [facility] ENDO [facility] ENDO Anesthesia Start: 854 Anesthesia Stop: Procedure: ESOPHAGOGASTRODUODENOSCOPY (EGD) Diagnosis: Melena [...] status: nasal cannula Hydration status: stable Color: [place] Activity: Moves 4 extremities Inotropes/Vasopressors: N/A No [...] Coronel Date/Time: 12/01/24918 Procedure: ESOPHAGOGASTRODUODENOSCOPY (EGD) Location: [facility] ENDO 03 / [facility] ENDO Surgeons: Scott Daley MD Vitals: 12/01/24 0033 12/01/24 0421 12/01/24 0550 12/01/24 0809 BP: 131/64 (!) 143/63 (!) 149/56 Pulse: 92 96 95 Resp: 16 20 Temp: 98.1 ??F (36.7 ??C) 97.9 [...] 2 g intravenous Q24H IVPB Stopped at 11/30/242103 [Transfer Hold] ergocalciferol 50,000 Units oral Q7 Days 50,000 Units at 11/30/24 1459 [Transfer Hold] gabapentin 300 mg oral TID 300 mg at 11/30/242035 [Transfer Hold] insulin lispro 0-18 Units subcutaneous 4x Daily AC [Transfer Hold] lactulose 20 g oral Daily 20 g at 11/30/24 1120 [Transfer Hold] pantoprazole 40 mg intravenous QPM 40 mg at 11/30/241814 [Transfer Hold] rifAXIMin 550 mg oral BID 550 mg at 11/30/242035 Problem List as of 12/01/2024 Digestive Melena Other * (Principal) Anasarca Past Medical History: Diagnosis Date Cirrhosis, non-alcoholic (HCC) Diabetes mellitus (HCC) Hypertension Patient admitted to outside hospital with swollen abdomen, abdominal pain, BLE edema, transferred to [facility] for hepatorenal syndrome evaluation. Hx dark, tarry [...] (DOPPLER / COLOR) W OR WO CONTRAST [[id number]] Collected: 11/30/24 0725 Order Status: Completed Updated: 11/30/24 1046 Narrative: TRANSTHORACIC ECHOCARDIOGRAPHY REPORT Demographics Patient Name: RIN JONES : 1960 Age: 64 year(s) Corporate ID Number: [id number] Gender Female Electrical Engineering Technologist: Giovanna Rock Height: 67 inches [facility] Referring Physician: HUEY RICHARDSON Weight: 225 [...] 1.35 m/s E/A ratio: 0.97 m/s Volume [id number] LV length: 8.51 cm ml Volume euyxztvu35.96 ml LVOT diameter: 1.79 cm Normal sized [...] Valve TR velocity: 2.51 m/s TR gradient: 25.64627 mmHg Estimated RAP: 3 mmHg RVSP: 28.12 [...] 12/01/2024404 Component Value Date/Time CALCIUM 8.0 (L) 12/01/20245 ALKPHOS 61 12/01/2024 0405 AST 26 12/01/2024 0405 ALT 15 12/01/2024 0405 BILITOT 0.5 12/01/2024 0405 Lab Results Component Value Date WBC 1.7 [...] risks discussed with patient. Plan discussed with SENIOR BUSINESS BROKER. documented in this encounter Plan of Treatment Upcoming Encounters Date Type Department Care Team (Late st Contact Info) Description 01/27/2025 10:45 AM EDT Office Visit [facility] Electrophysiology [address] [place] [phone] Quincy Foss MD [address] [place] [address] [address] [place] [address] documented as of this encounter Procedures Procedure [...] mg documented in this encounter Care Teams Wardrobe Manager Relationship Specialty Start Date End Date [facility] Connection, Find-A-Doc [facility] [place] [address] PCP - General 11/30/24 12/13/24 documented as of this encounter
--- OUTSIDE RECORDS SUMMARY | 2024-12-01 09:19 | XMS_ITS | Encounter Summary ---
Author Organization [facility] In iatives Address [address] [place] [address] Care Team Providers Care Tinning Machine Set Up Operator Name Role Phone [facility] Francesca, Find-A-Doc Primary Care Provider Reason for Visit * Auth/Cert (Routine) Specialty Diagnoses / Procedures Referred By Mayela may Referred To Contact Diagnoses Anasarca ACUTE RENAL FAILURE [address] Medical Telemetry Unit 1 [place] [address] Phone: tel: fax: [address] Medical Telemetry Unit [address] [place] [phone] Phone: tel: fax: Referral ID Status Reason Start Date Expiration Date Visits Re quested Visits Authorized [id number] 1 1 Encounter Details Date Type Department Care Team (Late st Contact Info) Description 12/01/2024 9:19 AM EDT - 12/01/2024 9:50 AM EDT Surgery [facility] Endoscopy 1 [place] [address] Scott Daley MD [address] [place] [address] [place] [address] EGD, WITH FOREIGN BODY REMOVAL Social History Tobacco Use Types Packs/Day Years [...] your living situation today? I have a [facility] place to live 11/30/2024 Think about [...] Do you speak a language other than [place] at [facility]? No 11/30/2024 Do you want [...] Sign Reading Time Taken Comments Blood Pressure 145/57 12/01/2024 9:50 AM EDT Pulse 97 12/01/2024 9:50 AM EDT Temperature 36.3 C (97.3 F) 12/01/2024 9:35 AM EDT Respiratory Rate 19 12/01/2024 9:50 AM EDT Oxygen Saturation 93% 12/01/2024 9:50 AM EDT Inhaled Oxygen Concentration - - Weight 101.6 kg (224 lb) 12/01/2024 8:09 AM EDT Height 167.6 cm (5' 6 ) 12/01/2024 8:09 AM EDT Body Mass Index 29.86 12/01/2024 8:09 AM EDT documented in this encounter Discharge Summaries * David Coffman PA-C - 12/14/2024 12:42 PM EDT [facility] Discharge Summary Patient Name: Mary Gar : 1960 Date of Admission: 11/30/2024 Date of Discharge: 12/14/2024 Primary Care Physician: Not In System Provider Hospital Course Ball Thread Machine Tender(s): Discharge Diagnosis: Anasarca Cirrhosis Paroxysmal atrial fibrillation/nonsustained [...] diabetes, CKD, CAD, arthritis. Patient presented to [facility] with swollen abdomen, abdominal discomfort and bilateral lower extremity pitting edema.Patient's BUN/creatinine elevated, and patient subsequently transferred to [facility] for hepatorenal syndrome evaluation. Admits to [...] days. Patient's niece forced patient to visit [facility] emergency room today she really [...] a bone marrow biopsy which was unremarkable. [place] that she had anemia of chronic disease [...] These medications were sent to [facility] at [facility] [address] [place] [address] [address] [facility] [address] [address] amiodarone 200 MG tablet ergocalciferol 1,250 mcg (50,000 unit) capsule lactulose 10 gram/15 mL solution pantoprazole 40 MG tablet rifAXIMin 550 mg These medications were sent to [facility] [address] [address] metOLazone 2.5 MG tablet tamsulosin 0.4 mg [...] Contact information for follow-up [facility] [address] Next Steps: Go in 2 week(s) Instructions: Nephrology follow up 12/30/24 @8:45am Follow up with [facility] in 1-2 weeks with renal function panel Primary care provider (PCP) Next Steps: Follow up Monika Hernandez APRN [facility] Primary Care [address] [place] [address] Next Steps: Go in 1 week(s) Instructions: PCP follow up 12/22/24 @3:00pm Time Spent on Discharge: I spent 35 minutes in ksef-ml-uotk time with the patient and nursing staffconcerning [...] date for patient encounter. Primary Care Physician: Kaitlynn Find-a-Doc Consultations: Treatment Team: Consulting Physician: Nikolai [...] diabetes, CKD, CAD, arthritis. Patient presented to [facility] with swollen abdomen, abdominal discomfort and bilateral lower extremity pitting edema.Patient's BUN/creatinine elevated, and patient subsequently transferred to [facility] for hepatorenal syndrome evaluation. Admits to [...] days. Patient's niece forced patient to visit [facility] emergency room today she really [...] These medications were sent to [facility] at [address] [address] amiodarone 200 MG tablet amoxicillin-clavulanate 500-125 mg [...] daily for 30 days. 30 tablet 12/07/2024 ergocalciferol (DRISDOL) 1,250 mcg (50,000 unit) capsule Take 1 capsule (50,000 Units total) by mouth every 7 days for 30 days. 4 capsule 12/07/2024 gabapentin (NEURONTIN) 100 MG capsule Take 1 [...] Recent Labs Lab(s) Units 12/14/24 0254 12/13/24 03112/12/24 0347 WBC K/??L 1.4* 1.4* 1.4* HGB [...] renal function - No emergent need of AUTOMOTIVE SALES ASSOCIATE - Monitor H/H and transfuse for Hgb [...] additional home health needs. Patient/family provided with [facility] approved choice list and Patient choice letter [...] of Mary Gar. Electronically signed by Alberto Love, PT, DPT - 12/15/24 - 10:54 AM [...] Hematology/oncology following. Acute hypoxemic/hypercapnic respiratory failure - [place] to be due to pulmonary edema from [...] SNF/Rehab, etc): TBD Signed: Brad Coffman PA-C [facility] Hospitalist * Rea Bishop RD - [...] intakes reported. Pt states she ate well station captain but hasn't had much of an appetite for past 4 days. Requested chicken noodle soup for lunch. Agreeable to ONS TID. Past Medical/Surgical History: Past Medical History: Diagnosis Date Cirrhosis, non-alcoholic (HCC) Diabetes mellitus (HCC) Hypertension Past Surgical History: Procedure Laterality Date ESOPHAGOGASTRODUODENOSCOPY (EGD),REMOVAL FOREIGN BODY N/A 12/01/2024 Procedure: EGD, WITH FOREIGN BODY REMOVAL; Surgeon: Scott Daley MD; Location: [facility]; Service: Gastroenterology; Laterality: N/A; Vitals [...] with severity: none Energy intake hx: good station captain (minimal for past 3-4 days) Wt [...] history as below. She initially presented to [facility] with swollen abdomen, abdominal discomfort, and bilateral lower extremity pain. Her creatinine was elevated and as a result, she was transferred to [facility] for he patorenal syndrome. Upon arrival here, [...] BODY REMOVAL; Surgeon: Scott Daley MD; Location: [facility]; Service: Gastroenterology; Laterality: N/A; Allergies: [...] POC-GLUCOSE 127 (H) 70 - 110 mg/dL Nurse Advisor [id number] Glucose, Nova Meter Status: Abnormal Collection Time: 12/13/24 11:15 AM Result Value Ref Range POC-GLUCOSE 221 (H) 70 - 110 mg/dL Nurse Advisor [phone] Glucose, Nova Meter Status: Abnormal Collection Time: 12/13/24 4:24 PM Result Value Ref Range POC-GLUCOSE 156 (H) 70 - 110 mg/dL Nurse Advisor [id number] Glucose, Nova Meter Status: Abnormal Collection Time: 12/13/24 8:20 PM Result Value Ref Range POC-GLUCOSE 186 (H) 70 - 110 mg/dL Nurse Advisor [id number] Radiology Radiology Results (last day) No results found for the last 24 hours. Microbiology: Microbiology Results (last 7 days) Procedure Component Value Units Date/Time Fungus Culture W/ROSA MARIA Or Nimisha Ink [[id number]] Collected: 11/30/24 1603 Order Status: Completed Specimen: Peritoneal Fluid from Body Fluid Updated: 12/07/241699 Result No fungus isolated at 1 week. ROSA MARIA Prep No fungal elements seen Narrative: Specimen Description: peritoneal fluid AFB Culture And Stain [[id number]] Collected: 11/30/24 1603 Order Status: Completed Specimen: Peritoneal Fluid from Body Fluid Updated: 12/07/241699 Result No Acid Fast Bacilli isolated at [...] to continue with albumin/diuretics no indication for AUTOMOTIVE SALES ASSOCIATE No significant pleural effusion for thoracentesis If needed repeat chest x-ray. Otherwise continue diuresis Pulmonary will sign off. Please call for any issues Case discussed during round. I have personally evaluated the patient and performed a edqw-ll-gylc diagnostic evaluation on this patient; I have reviewed history, performed physical examination, reviewed laboratory studies. , andreviewed images independent of radiologist. I have actively directed the medical care, formulated assessemnt and plan of care. Patient requires a high complexity of decision making for assessment. Voice balloon pilot technology (Healarium) is used for dictation of this note and sound-alike words might be erroneously placed despite reviewing the note for accuracy.Errors in dictation may reflect use of voice recognition software and not all errors in balloon pilot may have been detectedprior to signing * [...] renal function - No emergent need of AUTOMOTIVE SALES ASSOCIATE - Monitor H/H and transfuse for Hgb [...] admitted on: 11/30/2024 1:43 AM. presented to [facility] with swollen abdomen, abdominal discomfort and bilateral lower extremity pitting edema. Patient's BUN/creatinine elevated, and patient subsequently transferred to [facility] for hepatorenal syndrome evaluation. Admits to [...] mg oral Every Night 20 mg at 12/12/244 bumetanide 2 mg oral BID 2 mg at 12/12/24 214 ergocalciferol 50,000 Units oral Q7 Days 50,000 Units at 12/07/24 1446 gabapentin 100 mg oral TID 100 mg at 12/12/244 insulin lispro 0-18 Units subcutaneous 4x Daily AC 6 Units at 12/12/24 2204 lactulose 10 g oral BID 10 g at 12/12/24 2149 metOLazone 2.5 mg oral Daily 2.5 mg at 12/12/24 0858 pantoprazole 40 mg oral BID 40 mg at 12/12/244 rifAXIMin 550 mg oral BID 550 mg at 12/12/244 spironolactone 12.5 mg oral Daily 12.5 mg [...] Carmen Mcfadden MD 40 mg at 12/12/24 2144 prochlorperazine (COMPAZINE) injection 10 mg 10 mg intravenous Q6H PRN Huey Hurtado MD rifAXIMin (XIFAXAN) tablet 550 mg 550 mg oral BID Destiney Llanes APRN 550 mg at 12/12/24 2144 sodium chloride 0.9 % infusion 20 mL/hr [...] Culture And Stain AFB Culture And Stain [facility] Non-Supervisor Cytology [facility] Non-Supervisor Cytology DIFFERENTIAL, BODY FLUID DIFFERENTIAL, BODY FLUID Body Fluid/CSF - Path Review () Body Fluid/CSF - Path Review () [facility] BONE MARROW SMEAR, ASPIRATION, AND STAIN [facility] BONE MARROW SMEAR, ASPIRATION, AND [...] BODY REMOVAL; Surgeon: Scott Daley MD; Location: [facility]; Service: Gastroenterology; Laterality: N/A; Allergies: [...] Normal range of motion. Integumentary: Warm, Dry, Mountain. Neurologic: No obvious focal deficit Psychiatric: Cooperative, Appropriate mood & affect. Labs, Imaging, and Other Studies: Echo Results (last 7 days) Procedure Component Value Units Date/Time ECHO COMPLETE (DOPPLER / COLOR) W OR WO CONTRAST [[id number]] Collected: 11/30/24724 Order Status: Completed Updated: 11/30/24 1046 Narrative: TRANSTHORACIC ECHOCARDIOGRAPHY REPORT Demographics Patient Name: RIN JONES : 1960 Age: 64 year(s) Corporate ID Number: [id number] Gender Female Industrial Training Specialist: Giovanna Rock Height: 67 inches [facility] Referring Physician: HUEY HURTADO Weight: 225 pounds Interpreting JESSICA RAYMOND MD BMI: 35.24 kg/m^2 Physician: Date of Service: 11/30/2024 Blood Pressure: 118/59 mmHg Room Number: 579 Type of Study: TTE procedure: ECHO COMPLETE (DOPPLER / COLOR) W OR WO CONTRAST. Patient Status: Routine IP Study Location: [facility] Quality: Adequate visualization History/Tech Notes: Indication: shortness [...] 1.35 m/s E/A ratio: 0.97 m/s Volume rubmyvkaa172.99 LV length: 8.51 cm ml Volume xhwivbug94.96 ml LVOT diameter: 1.79 cm Normal sized [...] Valve TR velocity: 2.51 m/s TR gradient: 25.06952 mmHg Estimated RAP: 3 mmHg RVSP: 28.12 [...] (DOPPLER / COLOR) W OR WO CONTRAST [[id number]] Collected: 11/30/24724 Order Status: Completed Updated: 11/30/24 1046 Narrative: TRANSTHORACIC ECHOCARDIOGRAPHY REPORT Demographics Patient Name: RIN JONES : 1960 Age: 64 year(s) Corporate ID Number: [id number] Gender Female Industrial Training Specialist: Giovanna Rock Height: 67 inches [facility] Referring Physician: HUEY HURTADO Weight: [...] 1.35 m/s E/A ratio: 0.97 m/s Volume dmvptexat414.99 LV length: 8.51 cm ml Volume ilvczobp89.96 ml LVOT diameter: 1.79 cm Normal sized [...] Valve TR velocity: 2.51 m/s TR gradient: 25.06582 mmHg Estimated RAP: 3 mmHg RVSP: 28.12 [...] imaging. Assessment and Plan: *Paroxysmal Atrial Fib [id number] of 3 to 4 also have some [...] Patient cannot take anticoagulation for A-fib despite [id number] because of multiple issue including GI bleeding [...] * KENNEY Zaragoza - 12/13/2024 8:25 AM EDTSumlacyy: MANGO Updates - [facility] Pending Discharge Plan Progress Note Case Management received call from Vesna Paige (phone # [phone]) program and research coordinator with [facility] requesting notes from weekend. MANGO faxed weekend notes via [facility] to [facility] Gibson to fax # [phone]. Patient will require a precert if a bed is offered. Update, 12/13, 3:07 pm Patient and family's first choice, [facility] have denied patient due to not being able to meet and accommodate patient's clinical needs. No information regarding how. Update 3:45 pm - Per facility's admission market sales manager, patient is requiring BiPaP 'too much' (17/02 per facility words), requiring a paracentesis too often, no activity tolerance, therefore patient is not rehab appropriate. CM asked [facility] to review referral to inquire about [...] it's needed/appropriate DC plan for insurance purposes. MANGO has updated treatment team via [employer] chat that are signed into patient's chart on 12/13 - QUIQUE, bedside RN, bedside EDITOR CONTINUITY AND SCRIPT, PT, and OT. Patient has other offers from the following: [facility] [place], [place]; offered bed [facility] to [facility]; follow up with Rama via [facility] [place], [place], [place] KENNEY Zaragoza * Norm Cameron MD - 12/12/2024 8:47 PM EDT EP progress note Patient Name: Mary Gar Admission Date: 11/30/2024 Primary Care Provider: JACKIE Find-a-Doc Chief Complaint/Reason for Consult: No chief complaint on file. History of Present Illness: Mary Gar is a 64 y.o. female, admitted on: 11/30/2024 1:43 AM. presented to [facility] with swollen abdomen, abdominal discomfort and bilateral lower extremity pitting edema. Patient's BUN/creatinine elevated, and patient subsequently transferred to [facility] for hepatorenal syndrome evaluation. Admits to [...] 10 g 10 g oral BID Timothy MD Bhumika 10 g at 12/12/24 0840 [Held by [...] Culture And Stain AFB Culture And Stain [facility] Non-Supervisor Cytology [facility] Non-Supervisor Cytology DIFFERENTIAL, BODY FLUID DIFFERENTIAL, BODY FLUID Body Fluid/CSF - Path Review () Body Fluid/CSF - Path Review () [facility] BONE MARROW SMEAR, ASPIRATION, AND STAIN [facility] BONE MARROW SMEAR, ASPIRATION, AND [...] BODY REMOVAL; Surgeon: Scott Daley MD; Location: [facility]; Service: Gastroenterology; Laterality: N/A; Allergies: [...] Normal range of motion. Integumentary: Warm, Dry, Mountain. Neurologic: No obvious focal deficit Psychiatric: Cooperative, Appropriate mood & affect. Labs, Imaging, and Other Studies: Echo Results (last 7 days) Procedure Component Value Units Date/Time ECHO COMPLETE (DOPPLER / COLOR) W OR WO CONTRAST [[id number]] Collected: 11/30/24724 Order Status: Completed Updated: 11/30/24 1046 Narrative: TRANSTHORACIC ECHOCARDIOGRAPHY REPORT Demographics Patient Name: RIN JONES : 1960 Age: 64 year(s) Corporate ID Number: [id number] Gender Female Industrial Training Specialist: Giovanna Rock Height: 67 inches [facility] Referring Physician: HUEY HURTADO Weight: [...] 1.35 m/s E/A ratio: 0.97 m/s Volume koqxlxswr527.99 LV length: 8.51 cm ml Volume mpmquzhi05.96 ml LVOT diameter: 1.79 cm Normal sized [...] Valve TR velocity: 2.51 m/s TR gradient: 25.65880 mmHg Estimated RAP: 3 mmHg RVSP: 28.12 [...] including malabsorption, drug interactions, and alcoholic hepatitis. [employer] has become aware of sulfasalazine and sulfapyridine [...] (DOPPLER / COLOR) W OR WO CONTRAST [[id number]] Collected: 11/30/24724 Order Status: Completed Updated: 11/30/241045 Narrative: TRANSTHORACIC ECHOCARDIOGRAPHY REPORT Demographics Patient Name: RIN JONES : 1960 Age: 64 year(s) Corporate ID Number: [id number] Gender Female Industrial Training Specialist: Giovanna Rock Height: 67 inches [facility] Referring Physician: HUEY HURTADO Weight: 225 pounds Interpreting JESSICA RAYMOND MD BMI: 35.24 kg/m^2 Physician: Date of Service: 11/30/2024 Blood Pressure: 118/59 mmHg Room Number: 579 Type of Study: TTE procedure: ECHO COMPLETE (DOPPLER / COLOR) W OR WO CONTRAST. Patient Status: Routine IP Study Location: [facility] Quality: Adequate visualization History/Tech Notes: Indication: shortness [...] 1.35 m/s E/A ratio: 0.97 m/s Volume dgfyanyse258.99 LV length: 8.51 cm ml Volume tqqrrbda50.96 ml LVOT diameter: 1.79 cm Normal sized [...] Valve TR velocity: 2.51 m/s TR gradient: 25.68353 mmHg Estimated RAP: 3 mmHg RVSP: 28.12 [...] imaging. Assessment and Plan: *Paroxysmal Atrial Fib [id number] of 3 to 4 also have some [...] Patient cannot take anticoagulation for A-fib despite [id number] because of multiple issue including GI bleeding [...] renal function - No emergent need of AUTOMOTIVE SALES ASSOCIATE - Monitor H/H and transfuse for Hgb [...] MARIAN Hurtado MD 3 Units at 12/12/24 0636 [...] Hematology/oncology following. Acute hypoxemic/hypercapnic respiratory failure - [place] to be due to pulmonary edema from [...] oral Every Night 20 mg at 12/10/24 210 bumetanide 2 mg oral BID 2 mg at 12/11/24 0841 ergocalciferol 50,000 Units oral Q7 Days 50,000 Units at 12/07/24 1446 gabapentin 100 mg oral TID 100 mg at 12/11/24 0842 insulin lispro 0-18 Units subcutaneous 4x Daily AC 3 Units at 12/11/24 0648 lactulose 10 g oral BID 10 g at 12/10/242105 metOLazone 2.5 mg oral Daily pantoprazole 40 mg oral BID 40 mg at 12/11/24 08 rifAXIMin 550 mg oral BID 550 mg at 12/11/24840 spironolactone 12.5 mg oral Daily 12.5 mg at 12/11/24 08 Continuous Infusions: Current Facility-Administered Medications Medication Dose [...] Mary Carmen Mcfadden MD 1 tablet at 12/11/24840 atorvastatin (LIPITOR) tablet 20 mg 20 mg oral Every Night Huey Hurtado MD 20 mg at 12/10/242104 benzocaine-menthoL (CEPACOL) lozenge 1 lozenge 1 lozenge [...] Hematology/oncology following. Acute hypoxemic/hypercapnic respiratory failure - [place] to be due to pulmonary edema from [...] SNF/Rehab, etc): TBD Signed: Brad Coffman PA-C [facility] Hospitalist * Hema Cervantes MD - [...] renal function - No emergent need of AUTOMOTIVE SALES ASSOCIATE - Monitor H/H and transfuse for Hgb [...] BODY REMOVAL; Surgeon: Scott Daley MD; Location: [facility]; Service: Gastroenterology; Laterality: N/A; General Visit type: Treatment Approved by: Nurse Metzger Patient disposition upon entry: Patient verified by name, Patient verified by date of , Supinein bed Co-treated by: CEMENT CUTTER Assisted by: conventions assistant Precautions Weightbearing status: No restrictions Precautions: [...] had BM and pt returned to EOB. GRAFFITI CLEANER entered room to assist. Pt was able to stand with CGA and maintain standing with CGA whilst pt was cleaned and sheets changed. Was able to don briefs with mod A. PT entered room and pt was able to ambulate with CGA and use of RW in hallway prior to returning toroo and transferring back to supine in bed [...] Planning Progress Note Discharge Plan Progress Note JOSE MANUEL/MANGO spoke with patient's sister, Jojo Mcgill this morning via phone. Family prefers [facility] (in [place] [facility]), as they live 10-20minutes away from facility. HAYDEN contacted program and research coordinator via text, number provided by family, phone # [phone]. farhan Astorga, fax # [phone]. CM sent updated referral. Patient will need precert. Family, sister Jojo will be able to transport at discharge, but will been 24 hour notice to be able to transport to facility. CM plan is SNF/rehab possible early next week pending medical readiness, and precert. Update 3:27 pm - updated PT and OT notes faxed to [facility] KENNEY Zaragoza * Hema [...] renal function - No emergent need of AUTOMOTIVE SALES ASSOCIATE - Monitor H/H and transfuse for Hgb [...] POC-GLUCOSE 162 (H) 70 - 110 mg/dL Nurse Advisor [id number] ABG Status: Abnormal Collection Time: 12/10/24 6:42 [...] ARTERIAL 8.5 (L) 12.0 - 18.0 g/dL [facility] COLLECTION SITE Left Radial Arterial [...] POC-GLUCOSE 195 (H) 70 - 110 mg/dL Nurse Advisor [id number] Glucose, Nova Meter Status: Abnormal Collection Time: 12/10/24 6:32 PM Result Value Ref Range POC-GLUCOSE 235 (H) 70 - 110 mg/dL Nurse Advisor [id number] Glucose, Nova Meter Status: Abnormal Collection Time: 12/10/24 7:38 PM Result Value Ref Range POC-GLUCOSE 201 (H) 70 - 110 mg/dL Nurse Advisor [phone] US paracentesis Narrative: ULTRASOUND-GUIDED PARACENTESIS HISTORY: Ascites. ATTENDING PHYSICIAN: Dr. Haseeb Gil PHYSICIAN CHANNEL SALES DIRECTOR: Sujit Blackman PA-C FINDINGS: After informed consent [...] Pending blood gas improvement And more awake manager ethics working discharge plan, likely dc 1-2 days pending improvement, plan for paracentesis today * Deysi Foss MD - 12/10/2024 8:13 AM EDT EP progress note Patient Name: Mary Gar Admission Date: 11/30/2024 Primary Care Provider: [facility] Find-a-Doc Chief Complaint/Reason for Consult: No chief complaint on file. History of Present Illness: Mary Gar is a 64 y.o. female, admitted on: 11/30/2024 1:43 AM. presented to [facility] with swollen abdomen, abdominal discomfort and bilateral lower extremity pitting edema. Patient's BUN/creatinine elevated, and patient subsequently transferred to [facility] for hepatorenal syndrome evaluation. Admits to [...] Units oral Q7 Days 50,000 Units at 12/07/241445 gabapentin 100 mg oral TID 100 mg [...] mg 4 mg intravenous Q8H PRN Huey Hutrado MD 4 mg at 12/08/24 1140 oxyCODONE [...] Culture And Stain AFB Culture And Stain [facility] Non-Supervisor Cytology [facility] Non-Supervisor Cytology DIFFERENTIAL, BODY FLUID DIFFERENTIAL, BODY FLUID Body Fluid/CSF - Path Review () Body Fluid/CSF - Path Review () [facility] BONE MARROW SMEAR, ASPIRATION, AND STAIN [facility] BONE MARROW SMEAR, ASPIRATION, AND [...] BODY REMOVAL; Surgeon: Scott Daley MD; Location: [facility]; Service: Gastroenterology; Laterality: N/A; Allergies: [...] Normal range of motion. Integumentary: Warm, Dry, Mountain. Neurologic: No obvious focal deficit Psychiatric: Cooperative, Appropriate mood & affect. Labs, Imaging, and Other Studies: Echo Results (last 7 days) Procedure Component Value Units Date/Time ECHO COMPLETE (DOPPLER / COLOR) W OR WO CONTRAST [[id number]] Collected: 11/30/24 2194 Order Status: Completed Updated: 11/30/24 1046 Narrative: TRANSTHORACIC ECHOCARDIOGRAPHY REPORT Demographics Patient Name: RIN JONES : 1960 Age: 64 year(s) Corporate ID Number: [id number] Gender Female Industrial Training Specialist: Giovanna Rock Height: 67 inches [facility] Referring Physician: HUEY HURTADO Weight: 225 pounds Interpreting JESSICA RAYMOND MD BMI: 35.24 kg/m^2 Physician: Date of Service: 11/30/2024 Blood Pressure: 118/59 mmHg Room Number: 579 Type of Study: TTE procedure: ECHO COMPLETE (DOPPLER / COLOR) W OR WO CONTRAST. Patient Status: Routine IP [facility] History/Tech Notes: Indication: [...] 1.35 m/s E/A ratio: 0.97 m/s Volume mnbxlhoqs722.99 LV length: 8.51 cm ml Volume dorbnflv85.96 ml LVOT diameter: 1.79 cm Normal sized [...] Valve TR velocity: 2.51 m/s TR gradient: 25.57179 mmHg Estimated RAP: 3 mmHg RVSP: 28.12 [...] (DOPPLER / COLOR) W OR WO CONTRAST [[id number]] Collected: 11/30/24 0748 Order Status: Completed Updated: 11/30/24 1046 Narrative: TRANSTHORACIC ECHOCARDIOGRAPHY REPORT Demographics Patient Name: RIN JONES : 1960 Age: 64 year(s) Corporate ID Number: [id number] Gender Female Industrial Training Specialist: Giovanna Rock Height: 67 inches [facility] Referring Physician: HUEY HURTADO Weight: [...] 1.35 m/s E/A ratio: 0.97 m/s Volume ybbzwdcyq436.99 LV length: 8.51 cm ml Volume .96 [...] Valve TR velocity: 2.51 m/s TR gradient: 25.32412 mmHg Estimated RAP: 3 mmHg RVSP: 28.12 [...] imaging. Assessment and Plan: *Paroxysmal Atrial Fib [id number] of 3 to 4 also have some [...] Patient cannot take anticoagulation for A-fib despite [id number] because of multiple issue including GI bleeding [...] history as below. She initially presented to [facility] with swollen abdomen, abdominal discomfort, and bilateral lower extremity pain. Her creatinine was elevated and as a result, she was transferred to [facility] for he patorenal syndrome. Upon arrival here, [...] BODY REMOVAL; Surgeon: Scott Daley MD; Location: [facility]; Service: Gastroenterology; Laterality: N/A; Allergies: [...] ARTERIAL 8.7 (L) 12.0 - 18.0 g/dL [facility] COLLECTION SITE Left Radial Arterial Puncture Yes Blood Gas O2 Delivery Device Cannula Oxygen Flow Rate 4 Blood Gas PT Temperature C 37.0 Sen's Test Acceptable Critical Values Notification Critical Blood gas called to DAYANARA MILES . [place] [id number] and confirmed on12/09/2024 06:51 ABG Number of Draw Attempts 1 FIO2 Blood Gas Temperature Corrected Results No No Glucose, Nova Meter Status: Abnormal Collection Time: 12/09/24 11:17 AM Result Value Ref Range POC-GLUCOSE 173 (H) 70 - 110 mg/dL Nurse Advisor [id number] Glucose, Nova Meter Status: Abnormal Collection Time: 12/09/24 4:23 PM Result Value Ref Range POC-GLUCOSE 173 (H) 70 - 110 mg/dL Nurse Advisor [id number] Glucose, Nova Meter Status: Abnormal Collection Time: 12/09/24 7:30 PM Result Value Ref Range POC-GLUCOSE 158 (H) 70 - 110 mg/dL Nurse Advisor [phone] Glucose, Nova Meter Status: Abnormal Collection Time: 12/10/24 5:52 AM Result Value Ref Range POC-GLUCOSE 162 (H) 70 - 110 mg/dL Nurse Advisor [id number] Radiology Radiology Results (last day) Procedure Component Value Units Date/Time XR chest AP portable [[id number]] Collected: 12/09/24 0844 Order Status: Completed Updated: [...] Fungus Culture W/ROSA MARIA Or Nimisha Ink [[id number]] Collected: 11/30/24 160 Order Status: Completed Specimen: Peritoneal Fluid from Body Fluid Updated: 12/07/24 170 Result No fungus isolated at 1 week. ROSA MARIA Prep No fungal elements seen Narrative: Specimen Description: peritoneal fluid AFB Culture And Stain [[id number]] Collected: 11/30/241602 Order Status: Completed Specimen: Peritoneal Fluid from Body Fluid Updated: 12/07/24 170 Result No Acid Fast Bacilli isolated at 1 week. AFB Smear No acid fast bacilli seen Narrative: Specimen Description: peritoneal fluid Anaerobic Culture [[id number]] Collected: 11/30/24 160 Order Status: Completed Specimen: Peritoneal Fluid from Body Fluid Updated: 12/05/24 0634 Result No Anaerobic growth Narrative: Specimen Description: peritoneal fluid Blood Culture [[id number]] Collected: 11/30/24 0340 Order Status: Completed Specimen: Blood from Arm, Left Updated: 12/05/24 0501 Result No growth in 5 days Blood Culture [[id number]] Collected: 11/30/24 0342 Order Status: Completed Specimen: Blood from Arm, Right Updated: 12/05/24 0501 Result No growth in 5 days Body Fluid Culture + Gram Stain [[id number]] Collected: 11/30/24 160 Order Status: Completed Specimen: Peritoneal Fluid from Body Fluid Updated: 12/03/24 0907 Result No growth Gram Stain Result No organisms seen No cells seen Narrative: Specimen Description: peritoneal fluid Body Fluid/CSF - Path Review () [[id number]] Collected: 11/30/24 160 Order Status: Completed Specimen: [...] ABG 7.28, pCO2 51, pO2 157, BiPAP /, FiO2 35% alternating with 2 L nasal [...] to continue with albumin/diuretics no indication for AUTOMOTIVE SALES ASSOCIATE No significant pleural effusion for thoracentesis If needed repeat chest x-ray. Otherwise continue diuresis Pulmonary continue to follow Case discussed during round. I have personally evaluated the patient and performed a yhls-fx-dcpq diagnostic evaluation on this patient; I have reviewed history, performed physical examination, reviewed laboratory studies. , andreviewed images independent of radiologist. I have actively directed the medical care, formulated assessemnt and plan of care. Patient requires a high complexity of decision making for assessment. 34 minutes critical care time was spent. Voice balloon pilot technology (Healarium) is used for dictation of this note and sound-alike words might be erroneously placed despite reviewing the note for accuracy.Errors in dictation may reflect use of voice recognition software and not all errors in balloon pilot may have been detectedprior to signing * [...] Electronically signed by Alvina Barragan PT - 12/09/2024 - 4:29 PM EDT [...] POC-GLUCOSE 159 (H) 70 - 110 mg/dL Nurse Advisor [id number] Glucose, Nova Meter Status: Abnormal Collection Time: 12/08/24 8:08 PM Result Value Ref Range POC-GLUCOSE 172 (H) 70 - 110 mg/dL Nurse Advisor [id number] Basic Metabolic Panel Status: Abnormal Collection Time: [...] POC-GLUCOSE 148 (H) 70 - 110 mg/dL Nurse Advisor [phone] ABG Status: Abnormal Collection Time: 12/09/24 6:37 [...] ARTERIAL 8.7 (L) 12.0 - 18.0 g/dL [facility] COLLECTION SITE Left Radial Arterial Puncture Yes Blood Gas O2 Delivery Device Cannula Oxygen Flow Rate 4 Blood Gas PT Temperature C 37.0 Sen's Test Acceptable Critical Values Notification Critical Blood gas called to DAYANARA MILES . Results [place] [id number] and confirmed on12/09/2024 06:51 ABG Number of Draw Attempts 1 FIO2 Blood Gas Temperature Corrected Results No No Glucose, Nova Meter Status: Abnormal Collection Time: 12/09/24 11:17 AM Result Value Ref Range POC-GLUCOSE 173 (H) 70 - 110 mg/dL Nurse Advisor [phone] XR chest AP portable Narrative: PORTABLE CHEST. [...] Pending blood gas improvement And more awake manager ethics working discharge plan * Tori Kamara RN [...] Ext: +++ Pedal edema , no cyanosis SYSTEM ARCHIVE ANALYST: Alert, No focal deficit noted grossly Psy: Cooperative Labs: Results for orders placed or performed during the hospital encounter of 11/30/24 (from the past 24 hours) Glucose, Nova Meter Status: Abnormal Collection Time: 12/08/24 10:57 AM Result Value Ref Range POC-GLUCOSE 191 (H) 70 - 110 mg/dL Nurse Advisor [phone] Glucose, Nova Meter Status: Abnormal Collection Time: 12/08/24 3:34 PM Result Value Ref Range POC-GLUCOSE 159 (H) 70 - 110 mg/dL Nurse Advisor [phone] Glucose, Nova Meter Status: Abnormal Collection Time: 12/08/24 8:08 PM Result Value Ref Range POC-GLUCOSE 172 (H) 70 - 110 mg/dL Nurse Advisor [id number] Basic Metabolic Panel Status: Abnormal Collection Time: [...] POC-GLUCOSE 148 (H) 70 - 110 mg/dL Nurse Advisor [id number] ABG Status: Abnormal Collection Time: 12/09/24 6:37 [...] ARTERIAL 8.7 (L) 12.0 - 18.0 g/dL [facility] COLLECTION SITE Left Radial Arterial Puncture Yes Blood Gas O2 Delivery Device Cannula Oxygen Flow Rate 4 Blood Gas PT Temperature C 37.0 Sen's Test Acceptable Critical Values Notification Critical Blood gas called to DAYANARA MILES . [place] [id number] and confirmed on12/09/2024 06:51 ABG Number of [...] Intake/Output Summary (Last 24 hours) at 12/09/2024 0980 Last data filed at 12/09/2024 0300 Gross [...] renal function - No emergent need of AUTOMOTIVE SALES ASSOCIATE - Monitor H/H and transfuse for Hgb less than 7.0 Discussed with patient Follow up with [facility] in 1-2 weeks with renal function panel * KENNEY Zaragoza - 12/09/2024 8:04 AM EDTSummary: Referral Pending Discharge Plan Progress Note Family/Sister prefers [facility]. SW/CM sent referral this AM. Currently pending. [facility] [address] KENNEY Zaragoza * Blanka Malagon MD - 12/09/2024 6:30 AM EDT Images from the original note were not included. PULMONARY AND CRITICAL CARE Consult Note Date of Service: 12/09/2024 HPI: This is a 64 y.o. year old female with past medical history as below. She initially presented to [facility] with swollen abdomen, abdominal discomfort, and bilateral lower extremity pain. Her creatinine was elevated and as a result, she was transferred to [facility] for he patorenal syndrome. Upon arrival here, [...] BODY REMOVAL; Surgeon: Scott Daley MD; Location: [facility]; Service: Gastroenterology; Laterality: N/A; Allergies: [...] ARTERIAL 8.8 (L) 12.0 - 18.0 g/dL [facility] COLLECTION SITE Right Brachial Arterial Puncture Yes Blood Gas O2 Delivery Device Cannula Oxygen Flow Rate 4 Blood Gas PT Temperature C 37.0 Sen's Test Not Applicable Critical Values Notification Critical Blood gas called to KNOWN CONDITION . Results acknowledged/read back to [id number] and confirmed on 12/08/2024 07:30 ABG Number of Draw Attempts 1 FIO2 Blood Gas Temperature Corrected Results No No Glucose, Nova Meter Status: Abnormal Collection Time: 12/08/24 10:57 AM Result Value Ref Range POC-GLUCOSE 191 (H) 70 - 110 mg/dL Nurse Advisor [id number] Glucose, Nova Meter Status: Abnormal Collection Time: 12/08/24 3:34 PM Result Value Ref Range POC-GLUCOSE 159 (H) 70 - 110 mg/dL Nurse Advisor [phone] Glucose, Nova Meter Status: Abnormal Collection Time: 12/08/24 8:08 PM Result Value Ref Range POC-GLUCOSE 172 (H) 70 - 110 mg/dL Nurse Advisor [id number] Basic Metabolic Panel Status: Abnormal Collection Time: [...] Osmolality Calc 320.0 mOsm/kg CBC - Hemogram (-BK) Status: Abnormal Collection Time: 12/09/24 3:38 AM [...] POC-GLUCOSE 148 (H) 70 - 110 mg/dL Nurse Advisor [phone] Radiology Radiology Results (last day) No results found for the last 24 hours. Microbiology: Microbiology Results (last 7 days) Procedure Component Value Units Date/Time Fungus Culture W/ROSA MARIA Or Nimisha Ink [[id number]] Collected: 11/30/24 1603 Order Status: Completed Specimen: Peritoneal Fluid from Body Fluid Updated: 12/07/24 1700 Result No fungus isolated at 1 week. ROSA MARIA Prep No fungal elements seen Narrative: Specimen Description: peritoneal fluid AFB Culture And Stain [[id number]] Collected: 11/30/24 1603 Order Status: Completed Specimen: Peritoneal Fluid from Body Fluid Updated: 12/07/24 1700 Result No Acid Fast Bacilli isolated at 1 week. AFB Smear No acid fast bacilli seen Narrative: Specimen Description: peritoneal fluid Anaerobic Culture [[id number]] Collected: 11/30/24 160 Order Status: Completed Specimen: Peritoneal Fluid from Body Fluid Updated: 12/05/24 0634 Result No Anaerobic growth Narrative: Specimen Description: peritoneal fluid Blood Culture [[id number]] Collected: 11/30/24 0340 Order Status: Completed Specimen: Blood from Arm, Left Updated: 12/05/24 0501 Result No growth in 5 days Blood Culture [[id number]] Collected: 11/30/24 0342 Order Status: Completed Specimen: Blood from Arm, Right Updated: 12/05/24 0501 Result No growth in 5 days Body Fluid Culture + Gram Stain [[id number]] Collected: 11/30/24 1603 Order Status: Completed Specimen: Peritoneal Fluid from Body Fluid Updated: 12/03/24 0907 Result No growth Gram Stain Result No organisms seen No cells seen Narrative: Specimen Description: peritoneal fluid Body Fluid/CSF - Path Review () [[id number]] Collected: 11/30/24 160 Order Status: Completed Specimen: [...] ABG 7.28, pCO2 51, pO2 157, BiPAP /, FiO2 35% alternating with 2 L nasal cannula Diurese with Bumex increased dose 1 mg 3 times daily planning for paracentesis Augmentin broad-spectrum antibiotic Repeating ABG, chest x-ray a.m. Picture of volume overload likely related to combination of acute diastolic heart failure/renal failure/ascites with volume overload anasarca/pericardial effusion/ascites/lower extremity edema Nephrology following, recommended to continue with albumin/diuretics no indication for AUTOMOTIVE SALES ASSOCIATE No significant pleural effusion for thoracentesis If needed repeat chest x-ray. Otherwise continue diuresis Pulmonary twill follow . If ABG not improving ,or worsening mental status recommended ICU Case discussed during round. I have personally evaluated the patient and performed a sqhd-rm-ngbi diagnostic evaluation on this patient; I have reviewed history, performed physical examination, reviewed laboratory studies. , andreviewed images independent of radiologist. I have actively directed the medical care, formulated assessemnt and plan of care. Patient requires a high complexity of decision making for assessment. 34 minutes critical care time was spent. Voice balloon pilot technology (Healarium) is used for dictation of this note and sound-alike words might be erroneously placed despite reviewing the note for accuracy.Errors in dictation may reflect use of voice recognition software and not all errors in balloon pilot may have been detectedprior to signing * [...] Readiness for SNF - Bed Offer with [facility] Discharge Plan Progress Note SW/MANGO updated Rama T with [facility] regarding patient's ICU transfer cancellation.CM to follow up with Rama on 12/09 with updated PT/OT notes, MD progress notes of patients care, BiPaP/RT plan. [facility] is still [facility] bed for patient. Precert will be needed, [facility] SW/MANGO has attempted to call patient's sister, Jojo Dominguez x3 times, at # listed, , however, CM is experiencing phone issues and unable to call out. CM has informed bedside RN and EDITOR CONTINUITY AND SCRIPT via [employer] Chat. KENNEY Zaragoza * KENNEY Zaragoza - 12/08/2024 1:29 PM EDTSummary: CM Assessment Care Coordination Initial Assessment Patient's readmit score is low at 12%. CM plan was to DC home/independent at baseline or with family/sister assistance. Sister, Jojo, stated she cannot care for patient if patient was to come homewith her, and patient needed rehab. CM sent referrals, patient had bed offers, [facility] offered bed first and [...] Transition Needs Expected Discharge Date: Off Track [facility], 12/10-12/12 Home or Post Acute Services Needed: (P) Post acute facilities (Rehab/SNF/etc) Does the patient have the ability to fill and receive their discharge medications: (P) Yes Discharge plan discussed: (P) The discharge plan was discussed with patient high school admissions representative. Discharge Barriers: (P) Test(s) Pending, Activity Type of Assistive Devices Needed for Discharge: (P) None Patient Discharge Goal: (P) Inpatient Rehab Facility, [facility] Mandated Reporting: (P) Not applicable PT/OT/MOMD TEACHER Recommendations PT Recommendations: Pending Hospital Stay OT Recommendations: Pending Hospital Stay MOMD TEACHER Recommendations: NA 12/08/24 1327 Home Environment Type [...] The discharge plan was discussed with patient high school admissions representative. Discharge Plan Outcome Patient/family high school admissions representative agrees with the discharge plan Discharge Barriers Test(s) Pending;Activity Type of Assistive Devices Needed for Discharge None Patient Discharge Goal Inpatient Rehab Facility;[facility] Mandated Reporting Not applicable KENNEY Zaragoza * Deysi Foss MD - 12/08/2024 11:29 AM EDT EP progress note Patient Name: Mary Gar Admission Date: 11/30/2024 Primary Care Provider: JACKIE Find-a-Doc Chief Complaint/Reason for Consult: No chief complaint on file. History of Present Illness: Mary Gar is a 64 y.o. female, admitted on: 11/30/2024 1:43 AM. presented to [facility] with swollen abdomen, abdominal discomfort and bilateral lower extremity pitting edema. Patient's BUN/creatinine elevated, and patient subsequently transferred to [facility] for hepatorenal syndrome evaluation. Admits to [...] 100 mg oral TID 100 mg at 12/08/24942 insulin lispro 0-18 Units subcutaneous 4x Daily AC 6 Units at 12/08/24 1116 lactulose 10 g oral BID 10 g at 12/08/24942 pantoprazole 40 mg oral BID 40 mg at 12/08/2443 rifAXIMin 550 mg oral BID 550 mg at 12/08/24 09 [START ON 12/09/2024] spironolactone 12.5 mg oral [...] Huey Hurtado MD 6 Units at 12/08/24 111 lactulose (CHRONULAC) 10 gram/15 mL solution 10 g 10 g oral BID Timothy aBi MD 10 g at 12/08/24 09 [Held by provider] melatonin tablet 3 mg 3 mg oral Every Night PRN Huey Hurtado MD ondansetron (ZOFRAN-ODT) disintegrating tablet 4 mg 4 mg oral Q8H PRN Huey Hurtado MD Or ondansetron (ZOFRAN) injection 4 mg 4 mg intravenous Q8H PRN Huey Hurtado MD pantoprazole (PROTONIX) EC tablet 40 mg 40 mg oral BID Mary Carmen Mcfadden MD 40 mg at 12/08/24 09 prochlorperazine (COMPAZINE) injection 10 mg 10 mg [...] 12.5 mg oral Daily Hill Boo MD More meds No current facility-administered medications [...] Culture And Stain AFB Culture And Stain [facility] Non-Supervisor Cytology [facility] Non-Supervisor Cytology DIFFERENTIAL, BODY FLUID DIFFERENTIAL, BODY FLUID Body Fluid/CSF - Path Review () Body Fluid/CSF - Path Review () [facility] BONE MARROW SMEAR, ASPIRATION, AND STAIN [facility] BONE MARROW SMEAR, ASPIRATION, AND [...] BODY REMOVAL; Surgeon: Scott Daley MD; Location: [facility]; Service: Gastroenterology; Laterality: N/A; Allergies: [...] Normal range of motion. Integumentary: Warm, Dry, Mountain. Neurologic: No obvious focal deficit Psychiatric: Cooperative, Appropriate mood & affect. Labs, Imaging, and Other Studies: Echo Results (last 7 days) Procedure Component Value Units Date/Time ECHO COMPLETE (DOPPLER / COLOR) W OR WO CONTRAST [[id number]] Collected: 11/30/24724 Order Status: Completed Updated: 11/30/24 104 Narrative: TRANSTHORACIC ECHOCARDIOGRAPHY REPORT Demographics Patient Name: RIN JONES : 1960 Age: 64 year(s) Corporate ID Number: [id number] Gender Female Industrial Training Specialist: Giovanna Rock Height: 67 inches [facility] Referring Physician: HUEY HURTADO Weight: 225 pounds Interpreting JESSICA RAYMOND MD BMI: 35.24 kg/m^2 Physician: Date of Service: 11/30/2024 Blood Pressure: 118/59 mmHg Room Number: 579 Type of Study: TTE procedure: ECHO COMPLETE (DOPPLER / COLOR) W OR WO CONTRAST. Patient Status: Routine IP [facility]quate [facility] History/Tech Notes: Indication: shortness [...] 1.35 m/s E/A ratio: 0.97 m/s Volume uacdiyqem634.99 LV length: 8.51 cm ml Volume rbulxahe06.96 ml LVOT diameter: 1.79 cm Normal sized [...] Valve TR velocity: 2.51 m/s TR gradient: 25.90253 mmHg Estimated RAP: 3 mmHg RVSP: 28.12 [...] (DOPPLER / COLOR) W OR WO CONTRAST [[id number]] Collected: 11/30/24724 Order Status: Completed Updated: 11/30/24 1046 Narrative: TRANSTHORACIC ECHOCARDIOGRAPHY REPORT Demographics Patient Name: RIN JONES : 1960 Age: 64 year(s) Corporate ID Number: [id number] Gender Female Industrial Training Specialist: Giovanna Rock Height: 67 inches [facility] Referring Physician: HUEY HURTADO Weight: 225 pounds Interpreting JESSICA RAYMOND MD BMI: 35.24 kg/m^2 Physician: Date of Service: 11/30/2024 Blood Pressure: 118/59 mmHg Room Number: 579 Type of Study: TTE procedure: ECHO COMPLETE (DOPPLER / COLOR) W OR WO CONTRAST. Patient Status: Routine IP Study Location: [facility] Quality: Adequate visualization History/Tech Notes: Indication: shortness [...] .99 LV length: 8.51 cm ml Volume gvwhneud04.96 ml LVOT diameter: 1.79 cm Normal sized [...] Valve TR velocity: 2.51 m/s TR gradient: 25.89221 mmHg Estimated RAP: 3 mmHg RVSP: 28.12 [...] imaging. Assessment and Plan: *Paroxysmal Atrial Fib [id number] of 3 to 4 also have some [...] Patient cannot take anticoagulation for A-fib despite [id number] because of multiple issue including GI bleeding [...] clinical course, and response to therapy. * Darek Carrolllte, OTR/L - 12/08/2024 10:42 AM EDT Images from the original note were not included. Inpatient Occupational Therapy Treatment Note Patient Name: Mary Gar Date of : 1960 Date of Treatment: 12/08/24 Start Time: 101 Stop Time: 1041 Session Duration: 30 minutes This patient is a 64 y.o. female admitted on 11/30/2024 with Anasarca [R60.1]. Past Medical History: Diagnosis Date Cirrhosis, non-alcoholic (HCC) Diabetes mellitus (HCC) Hypertension Past Surgical History: Procedure Laterality Date ESOPHAGOGASTRODUODENOSCOPY (EGD),REMOVAL FOREIGN BODY N/A 12/01/2024 Procedure: EGD, WITH FOREIGN BODY REMOVAL; Surgeon: Scott Daley MD; Location: [facility]; Service: Gastroenterology; Laterality: N/A; General [...] 12.0 - 18.0 g/dL PaO2/FIO2 calculated 203.0 [facility] COLLECTION SITE Right Radial Arterial Puncture Yes Blood Gas PT Temperature C 37.0 Sen's Test Acceptable Critical Values Notification Critical Blood gas called to TRAY LORENZ RN . [place] [id number] and confirmed on 12/07/2024 10:51 ABG Number of Draw Attempts 1 FIO2 21.0 Blood Gas Temperature Corrected Results No No Glucose, Nova Meter Status: Abnormal Collection Time: 12/07/24 10:54 AM Result Value Ref Range POC-GLUCOSE 146 (H) 70 - 110 mg/dL Nurse Advisor [phone] Blood gas, arterial Status: Abnormal Collection Time: [...] ARTERIAL 8.9 (L) 12.0 - 18.0 g/dL [facility] COLLECTION SITE Right Radial Arterial Puncture Yes Blood Gas O2 Delivery Device Cannula Oxygen Flow Rate 2 Blood Gas PT Temperature C 37.0 Sen's Test Unacceptable Vent Mode Other Critical Values Notification Critical Blood gas called to DR MALAGON . [place] [id number] and confirmed on 12/07/2024 14:14 ABG Number of Draw Attempts 1 Performed by: WIL FIO2 Blood Gas Temperature Corrected Results No No Glucose, Nova Meter Status: Abnormal Collection Time: 12/07/24 3:39 PM Result Value Ref Range POC-GLUCOSE 159 (H) 70 - 110 mg/dL Nurse Advisor [phone] ABG Status: Abnormal Collection Time: 12/07/24 4:21 [...] 12.0 - 18.0 g/dL PaO2/FIO2 calculated 359.0 [facility] COLLECTION SITE Right Brachial Arterial Puncture Yes Blood Gas O2 Delivery Device NIV Blood Gas PT Temperature C 37.0 Sen's Test Not Applicable Critical Values Notification Critical Blood gas called to SEB LORENZ RN . Results acknowledged/read back to [id number] and confirmed on 12/07/2024 16:42 ABG Number of Draw Attempts 2 Set Rate 16.0 IPAP 10 EPAP 6 FIO2 50.0 Blood Gas Temperature Corrected Results No No Glucose, Nova Meter Status: Abnormal Collection Time: 12/07/24 7:54 PM Result Value Ref Range POC-GLUCOSE 164 (H) 70 - 110 mg/dL Nurse Advisor [phone] Basic Metabolic Panel Status: Abnormal Collection Time: [...] Osmolality Calc 322.3 mOsm/kg [facility] Status: Abnormal Collection Time: 12/08/24 4:10 [...] POC-GLUCOSE 136 (H) 70 - 110 mg/dL Nurse Advisor [phone] Blood gas, arterial Status: Abnormal Collection Time: [...] ARTERIAL 8.8 (L) 12.0 - 18.0 g/dL [facility] COLLECTION SITE Right Brachial Arterial Puncture Yes Blood Gas O2 Delivery Device Cannula Oxygen Flow Rate 4 Blood Gas PT Temperature C 37.0 Sen's Test Not Applicable Critical Values Notification Critical Blood gas called to KNOWN CONDITION . Results acknowledged/read back to [id number] and confirmed on 12/08/2024 07:30 ABG Number [...] Pending blood gas improvement And more awake manager ethics working discharge plan * Hill Boo MD [...] Ext: +++ Pedal edema , no cyanosis SYSTEM ARCHIVE ANALYST: Alert, No focal deficit noted grossly Psy: Cooperative Labs: Results for orders placed or performed during the hospital encounter of 11/30/24 (from the past 24 hours) ECG 12 lead Status: None Collection Time: 12/07/24 10:29 AM Result Value Ref Range VENTRICULAR RATE EKG/MIN 91 BPM ATRIAL RATE (MCT) 91 BPM [place] Interval 142 ms QRS-INTERVAL (MSEC) 88 ms QT Interval 376 ms QTC Interval 462 ms P [place] 39 degrees R AXIS (MCT) -3 degrees T Wave [place] 4 degrees [place] Diagnosis Normal sinus rhythm Nonspecific T wave [...] 12.0 - 18.0 g/dL PaO2/FIO2 calculated 203.0 [facility] COLLECTION SITE Right Radial Arterial Puncture Yes Blood Gas PT Temperature C 37.0 Sen's Test Acceptable Critical Values Notification Critical Blood gas called to TRAY LORENZ RN . [place] [id number] and confirmed on 12/07/2024 10:51 ABG Number of Draw Attempts 1 FIO2 21.0 Blood Gas Temperature Corrected Results No No Glucose, Nova Meter Status: Abnormal Collection Time: 12/07/24 10:54 AM Result Value Ref Range POC-GLUCOSE 146 (H) 70 - 110 mg/dL Nurse Advisor [phone] Blood gas, arterial Status: Abnormal Collection Time: [...] ARTERIAL 8.9 (L) 12.0 - 18.0 g/dL [facility] COLLECTION SITE Right Radial Arterial Puncture Yes Blood Gas O2 Delivery Device Cannula Oxygen Flow Rate 2 Blood Gas PT Temperature C 37.0 Sen's Test Unacceptable Vent Mode Other Critical Values Notification Critical Blood gas called to DR MALAGON . [place] [id number] and confirmed on 12/07/2024 14:14 ABG Number of Draw Attempts 1 Performed by: WIL FIO2 Blood Gas Temperature Corrected Results No No Glucose, Nova Meter Status: Abnormal Collection Time: 12/07/24 3:39 PM Result Value Ref Range POC-GLUCOSE 159 (H) 70 - 110 mg/dL Nurse Advisor [phone] ABG Status: Abnormal Collection Time: 12/07/24 4:21 [...] 12.0 - 18.0 g/dL PaO2/FIO2 calculated 359.0 [facility] COLLECTION SITE Right Brachial Arterial Puncture Yes Blood Gas O2 Delivery Device NIV Blood Gas PT Temperature C 37.0 Sen's Test Not Applicable Critical Values Notification Critical Blood gas called to SEB LORENZ RN . Results acknowledged/read back to [id number] and confirmed on 12/07/2024 16:42 ABG Number of Draw Attempts 2 Set Rate 16.0 IPAP 10 EPAP 6 FIO2 50.0 Blood Gas Temperature Corrected Results No No Glucose, Nova Meter Status: Abnormal Collection Time: 12/07/24 7:54 PM Result Value Ref Range POC-GLUCOSE 164 (H) 70 - 110 mg/dL Nurse Advisor [id number] Basic Metabolic Panel Status: Abnormal Collection Time: [...] POC-GLUCOSE 136 (H) 70 - 110 mg/dL Nurse Advisor [id number] Blood gas, arterial Status: Abnormal Collection Time: [...] ARTERIAL 8.8 (L) 12.0 - 18.0 g/dL [facility] COLLECTION SITE Right Brachial Arterial Puncture Yes Blood Gas O2 Delivery Device Cannula Oxygen Flow Rate 4 Blood Gas PT Temperature C 37.0 Sen's Test Not Applicable Critical Values Notification Critical Blood gas called to KNOWN CONDITION . Results acknowledged/read back to [phone] and confirmed on 12/08/2024 07:30 ABG Number [...] Labs Lab(s) Units 12/08/24 0608 12/08/24 0410 12/07/24195312/07/24 1539 12/07/24 0551 12/07/24 0359 12/06/24 0526 12/06/24 0313 12/05/24 1701 12/05/24 1536 12/05/24 0800 12/05/24 0320 12/04/24 0335 12/04/24 033 NA meq/L -- 149* -- -- -- [...] renal function - No emergent need of AUTOMOTIVE SALES ASSOCIATE - Monitor H/H and transfuse for Hgb [...] history as below. She initially presented to [facility] with swollen abdomen, abdominal discomfort, and bilateral lower extremity pain. Her creatinine was elevated and as a result, she was transferred to [facility] for he patorenal syndrome. Upon arrival here, [...] BODY REMOVAL; Surgeon: Scott Daley MD; Location: [facility]; Service: Gastroenterology; Laterality: N/A; Allergies: [...] 91 BPM ATRIAL RATE (MCT) 91 BPM [place] Interval 142 ms QRS-INTERVAL (MSEC) 88 ms QT Interval 376 ms QTC Interval 462 ms P [place] 39 degrees R AXIS (MCT) -3 degrees T Wave [place] 4 degrees [place] Diagnosis Normal sinus rhythm Nonspecific T wave [...] 12.0 - 18.0 g/dL PaO2/FIO2 calculated 203.0 [facility] COLLECTION SITE Right Radial Arterial Puncture Yes Blood Gas PT Temperature C 37.0 Sen's Test Acceptable Critical Values Notification Critical Blood gas called to TRAY LORENZ RN . [place] [id number] and confirmed on 12/07/2024 10:51 ABG Number of Draw Attempts 1 FIO2 21.0 Blood Gas Temperature Corrected Results No No Glucose, Nova Meter Status: Abnormal Collection Time: 12/07/24 10:54 AM Result Value Ref Range POC-GLUCOSE 146 (H) 70 - 110 mg/dL Nurse Advisor [phone] Blood gas, arterial Status: Abnormal Collection Time: [...] ARTERIAL 8.9 (L) 12.0 - 18.0 g/dL [facility] COLLECTION SITE Right Radial Arterial Puncture Yes Blood Gas O2 Delivery Device Cannula Oxygen Flow Rate 2 Blood Gas PT Temperature C 37.0 Sen's Test Unacceptable Vent Mode Other Critical Values Notification Critical Blood gas called to DR MALAGON . [place] [id number] and confirmed on 12/07/2024 14:14 ABG Number of Draw Attempts 1 Performed by: CD FIO2 Blood Gas Temperature Corrected Results No No Glucose, Nova Meter Status: Abnormal Collection Time: 12/07/24 3:39 PM Result Value Ref Range POC-GLUCOSE 159 (H) 70 - 110 mg/dL Nurse Advisor [id number] ABG Status: Abnormal Collection Time: 12/07/24 4:21 [...] 12.0 - 18.0 g/dL PaO2/FIO2 calculated 359.0 [facility] COLLECTION SITE Right Brachial Arterial Puncture Yes Blood Gas O2 Delivery Device NIV Blood Gas PT Temperature C 37.0 Sen's Test Not Applicable Critical Values Notification Critical Blood gas called to SEB LORENZ RN . Results acknowledged/read back to [phone] and confirmed on 12/07/2024 16:42 ABG Number of Draw Attempts 2 Set Rate 16.0 IPAP 10 EPAP 6 FIO2 50.0 Blood Gas Temperature Corrected Results No No Glucose, Nova Meter Status: Abnormal Collection Time: 12/07/24 7:54 PM Result Value Ref Range POC-GLUCOSE 164 (H) 70 - 110 mg/dL Nurse Advisor [id number] Basic Metabolic Panel Status: Abnormal Collection Time: [...] Osmolality Calc 322.3 mOsm/kg CBC - Hemogram (SJ-BKR) Status: Abnormal Collection Time: 12/08/24 4:10 AM [...] POC-GLUCOSE 136 (H) 70 - 110 mg/dL Nurse Advisor [id number] Blood gas, arterial Status: Abnormal Collection Time: [...] ARTERIAL 8.8 (L) 12.0 - 18.0 g/dL [facility] COLLECTION SITE Right Brachial Arterial Puncture Yes Blood Gas O2 Delivery Device Cannula Oxygen Flow Rate 4 Blood Gas PT Temperature C 37.0 Sen's Test Not Applicable Critical Values Notification Critical Blood gas called to KNOWN CONDITION . Results acknowledged/read back to [phone] and confirmed on 12/08/2024 07:30 ABG Number of Draw Attempts 1 FIO2 Blood Gas Temperature Corrected Results No No Radiology Radiology Results (last day) Procedure Component Value Units Date/Time XR chest AP portable [[id number]] Collected: 12/07/24 1550 Order Status: Completed Updated: [...] Fungus Culture W/ROSA MARIA Or Nimisha Ink [[id number]] Collected: 11/30/24 1603 Order Status: Completed Specimen: Peritoneal Fluid from Body Fluid Updated: 12/07/24 170 Result No fungus isolated at 1 week. ROSA MARIA Prep No fungal elements seen Narrative: Specimen Description: peritoneal fluid AFB Culture And Stain [[id number]] Collected: 11/30/24 1603 Order Status: Completed Specimen: Peritoneal Fluid from Body Fluid Updated: 12/07/24 170 Result No Acid Fast Bacilli isolated at 1 week. AFB Smear No acid fast bacilli seen Narrative: Specimen Description: peritoneal fluid Anaerobic Culture [[id number]] Collected: 11/30/24 1603 Order Status: Completed Specimen: Peritoneal Fluid from Body Fluid Updated: 12/05/24 0634 Result No Anaerobic growth Narrative: Specimen Description: peritoneal fluid Blood Culture [[id number]] Collected: 11/30/24 0340 Order Status: Completed Specimen: Blood from Arm, Left Updated: 12/05/24 0501 Result No growth in 5 days Blood Culture [[id number]] Collected: 11/30/24 0342 Order Status: Completed Specimen: Blood from Arm, Right Updated: 12/05/24 0501 Result No growth in 5 days Body Fluid Culture + Gram Stain [[id number]] Collected: 11/30/24 1603 Order Status: Completed Specimen: Peritoneal Fluid from Body Fluid Updated: 12/03/24 0907 Result No growth Gram Stain Result No organisms seen No cells seen Narrative: Specimen Description: peritoneal fluid Body Fluid/CSF - Path Review () [[id number]] Collected: 11/30/24 160 Order Status: Completed Specimen: [...] to continue with albumin/diuretics no indication for AUTOMOTIVE SALES ASSOCIATE No significant pleural effusion for thoracentesis If needed repeat chest x-ray. Otherwise continue diuresis Pulmonary twill follow . If ABG not improving ,or worsening mental status recommended ICU Case discussed during round. I have personally evaluated the patient and performed a akss-np-zluj diagnostic evaluation on this patient; I have reviewed history, performed physical examination, reviewed laboratory studies. , andreviewed images independent of radiologist. I have actively directed the medical care, formulated assessemnt and plan of care. Patient requires a high complexity of decision making for assessment. 34 minutes critical care time was spent. Voice balloon pilot technology ([employer]) is used for dictation of this note and sound-alike words might be erroneously placed despite reviewing the note for accuracy.Errors in dictation may reflect use of voice recognition software and not all errors in balloon pilot may have been detectedprior to signing * DAWOOD Gaona/Amada - 12/07/2024 2:26 PM EDT Images from [...] Gar Admission Date: 11/30/2024 Primary Care Provider: Kaitlynn Find-a-Doc Chief Complaint/Reason for Consult: No chief complaint on file. History of Present Illness: Mary Gar is a 64 y.o. female, admitted on: 11/30/2024 1:43 AM. presented to [facility] with swollen abdomen, abdominal discomfort and bilateral lower extremity pitting edema. Patient's BUN/creatinine elevated, and patient subsequently transferred to [facility] for hepatorenal syndrome evaluation. Admits to [...] mg oral Daily 200 mg at 12/07/24 09 amoxicillin-clavulanate 1 tablet oral BID 1 tablet [...] mg oral BID 550 mg at 12/07/24 09 spironolactone 12.5 mg oral Every Other Day [...] Daily Deysi Foss MD 200 mg at 12/07/24936 ammonium lactate (LAC-HYDRIN) lotion 12% topical PRN [...] tablet 1 mg 1 mg oral Daily Hill Boo MD 1 mg at 12/07/24 1232 dextrose 50% (D50W) injection 25 g 25 g intravenous Q15 Min PRN Huey Hurtado MD ergocalciferol (DRISDOL) capsule 50,000 Units 50,000 Units oral Q7 Days Timothy Bai MD 50,000 Units at 11/30/24 1459 gabapentin (NEURONTIN) capsule 200 mg 200 mg oral TID Alejandre MD Rajeev 200 mg at 12/07/24 0936 glucagon injection [...] Culture And Stain AFB Culture And Stain [facility] Non-Supervisor Cytology [facility] Non-Supervisor Cytology DIFFERENTIAL, BODY FLUID DIFFERENTIAL, BODY FLUID Body Fluid/CSF - Path Review () Body Fluid/CSF - Path Review () [facility] BONE MARROW SMEAR, ASPIRATION, AND STAIN [facility] BONE MARROW SMEAR, ASPIRATION, AND [...] BODY REMOVAL; Surgeon: Scott Daley MD; Location: [facility]; Service: Gastroenterology; Laterality: N/A; Allergies: [...] Normal range of motion. Integumentary: Warm, Dry, Mountain. Neurologic: No obvious focal deficit Psychiatric: Cooperative, Appropriate mood & affect. Labs, Imaging, and Other Studies: Echo Results (last 7 days) Procedure Component Value Units Date/Time ECHO COMPLETE (DOPPLER / COLOR) W OR WO CONTRAST [[id number]] Collected: 11/30/24724 Order Status: Completed Updated: 11/30/24 1046 Narrative: TRANSTHORACIC ECHOCARDIOGRAPHY REPORT Demographics Patient Name: RIN JONES : 1960 Age: 64 year(s) Corporate ID Number: [id number] Gender Female Industrial Training Specialist: Giovanna Rock Height: 67 inches [facility] Referring Physician: HUEY HURTADO Weight: [...] 1.35 m/s E/A ratio: 0.97 m/s Volume obyuidtxk057.99 LV length: 8.51 cm ml Volume .96 [...] Valve TR velocity: 2.51 m/s TR gradient: 25.07494 mmHg Estimated RAP: 3 mmHg RVSP: 28.12 [...] (DOPPLER / COLOR) W OR WO CONTRAST [[id number]] Collected: 11/30/24724 Order Status: Completed Updated: 11/30/24 104 Narrative: TRANSTHORACIC ECHOCARDIOGRAPHY REPORT Demographics Patient Name: RIN JONES : 1960 Age: 64 year(s) Corporate ID Number: [id number] Gender Female Industrial Training Specialist: Giovanna Rock Height: 67 inches [facility] Referring Physician: HUEY HURTADO Weight: [...] 1.35 m/s E/A ratio: 0.97 m/s Volume eetjqyysm746.99 LV length: 8.51 cm ml Volume gpkaeirj56.96 ml LVOT diameter: 1.79 cm Normal sized [...] Valve TR velocity: 2.51 m/s TR gradient: 25.10636 mmHg Estimated RAP: 3 mmHg RVSP: 28.12 [...] imaging. Assessment and Plan: *Paroxysmal Atrial Fib [id number] of 2 also have some wide-complex tachycardia [...] 90 BPM ATRIAL RATE (MCT) 90 BPM [place] Interval 142 ms QRS-INTERVAL (MSEC) 92 ms QT Interval 378 ms QTC Interval 462 ms P [place] 28 degrees R AXIS (MCT) -4 degrees T Wave [place] 21 degrees [place] Diagnosis Normal sinus rhythm Septal infarct , age undetermined Abnormal ECG When compared with ECG of 04-DEC-2024 20:08, Septal infarct is now present Nonspecific T wave abnormality no longer evident in Anterior leads Glucose, Nova Meter Status: Abnormal Collection Time: 12/06/24 4:06 PM Result Value Ref Range POC-GLUCOSE 134 (H) 70 - 110 mg/dL Nurse Advisor [phone] Glucose, Nova Meter Status: Abnormal Collection Time: 12/06/24 7:26 PM Result Value Ref Range POC-GLUCOSE 170 (H) 70 - 110 mg/dL Nurse Advisor [phone] CBC - Hemogram (SJ-BKR) Status: Abnormal Collection [...] POC-GLUCOSE 159 (H) 70 - 110 mg/dL Nurse Advisor [id number] ECG 12 lead Status: None (In process) Collection Time: 12/07/24 10:29 AM Result Value Ref Range VENTRICULAR RATE EKG/MIN 91 BPM ATRIAL RATE (MCT) 91 BPM [place] Interval 142 ms QRS-INTERVAL (MSEC) 88 ms QT Interval 376 ms QTC Interval 462 ms P [place] 39 degrees R AXIS (MCT) -3 degrees T Wave [place] 4 degrees [place] Diagnosis Normal sinus rhythm Nonspecific T wave abnormality Abnormal ECG When compared with ECG of 06-DEC-2024 13:16, No significant change was found Glucose, Nova Meter Status: Abnormal Collection Time: 12/07/24 10:54 AM Result Value Ref Range POC-GLUCOSE 146 (H) 70 - 110 mg/dL Nurse Advisor [phone] XR chest AP portable Narrative: PORTABLE CHEST; [...] ordered Need to be transferred to ICU manager ethics working discharge plan * Lian Dominguez RN [...] Anterior;Left (Active) Date First Assessed/Time First Assessed: 12/07/24951 Present on Original Admission: No Primary Wound Type: Pressure Injury Location: Leg upper Wound Location Orientation: Anterior;Left Assessments 12/07/2024 9:52 AM Wound Image No associated orders. 12/07/2453 Wound 12/07/24 Pressure Injury Leg upper Anterior;Left Date First Assessed/Time First Assessed: 12/07/24951 Present on Original Admission: No Primary Wound Type: Pressure Injury Location: Leg upper Wound Location Orientation: Anterior;Left Site Assessment Red;Yellow [place]-Wound Assessment [place] Odor None Pressure Injury Stage 2 Wound care performing NDNQI rounds. Patient on JORJE surface, agreeable to assessment. During head totoe skin inspection a MDRPI found on patients left anterior thigh due to urinary catheter tubing. MDRPI verified by second wound care manufacturing team member. [facility] RN recommends cleansing site with NS, [...] Ext: +++ Pedal edema , no cyanosis SYSTEM ARCHIVE ANALYST: Alert, No focal deficit noted grossly Psy: Cooperative Labs: Results for orders placed or performed during the hospital encounter of 11/30/24 (from the past 24 hours) Glucose, Nova Meter Status: Abnormal Collection Time: 12/06/24 10:36 AM Result Value Ref Range POC-GLUCOSE 150 (H) 70 - 110 mg/dL Nurse Advisor [id number] ECG 12 lead Status: None (In process) Collection Time: 12/06/24 1:16 PM Result Value Ref Range VENTRICULAR RATE EKG/MIN 90 BPM ATRIAL RATE (MCT) 90 BPM [place] Interval 142 ms QRS-INTERVAL (MSEC) 92 ms QT Interval 378 ms QTC Interval 462 ms P [place] 28 degrees R AXIS (MCT) -4 degrees T Wave [place] 21 degrees [place] Diagnosis Normal sinus rhythm Septal infarct , age undetermined Abnormal ECG When compared with ECG of 04-DEC-2024 20:08, Septal infarct is now present Nonspecific T wave abnormality no longer evident in Anterior leads Glucose, Nova Meter Status: Abnormal Collection Time: 12/06/24 4:06 PM Result Value Ref Range POC-GLUCOSE 134 (H) 70 - 110 mg/dL Nurse Advisor [id number] Glucose, Nova Meter Status: Abnormal Collection Time: 12/06/24 7:26 PM Result Value Ref Range POC-GLUCOSE 170 (H) 70 - 110 mg/dL Nurse Advisor [phone] CBC - Hemogram (SJ-BKR) Status: Abnormal Collection [...] POC-GLUCOSE 159 (H) 70 - 110 mg/dL Nurse Advisor [phone] XR chest AP portable Narrative: PORTABLE CHEST; [...] for GFR - No emergent need of AUTOMOTIVE SALES ASSOCIATE - Monitor H/H and transfuse for Hgb [...] Gar Admission Date: 11/30/2024 Primary Care Provider: [facility] Find-a-Doc Chief Complaint/Reason for Consult: No chief complaint on file. History of Present Illness: Mary Gar is a 64 y.o. female, admitted on: 11/30/2024 1:43 AM. presented to [facility] with swollen abdomen, abdominal discomfort and bilateral lower extremity pitting edema. Patient's BUN/creatinine elevated, and patient subsequently transferred to [facility] for hepatorenal syndrome evaluation. Admits to [...] TID Alejandre MD Rajeev 300 mg at 12/06/24 0857 glucagon injection [...] Culture And Stain AFB Culture And Stain [facility] Non-Supervisor Cytology [facility] Non-Supervisor Cytology DIFFERENTIAL, BODY FLUID DIFFERENTIAL, BODY FLUID Body Fluid/CSF - Path Review () Body Fluid/CSF - Path Review () [facility] BONE MARROW SMEAR, ASPIRATION, AND STAIN [facility] BONE MARROW SMEAR, ASPIRATION, AND [...] BODY REMOVAL; Surgeon: Scott Daley MD; Location: [facility]; Service: Gastroenterology; Laterality: N/A; Allergies: [...] Normal range of motion. Integumentary: Warm, Dry, [place]. Neurologic: No obvious focal deficit Psychiatric: Cooperative, Appropriate mood & affect. Labs, Imaging, and Other Studies: Echo Results (last 7 days) Procedure Component Value Units Date/Time ECHO COMPLETE (DOPPLER / COLOR) W OR WO CONTRAST [[id number]] Collected: 11/30/24 5244 Order Status: Completed Updated: 11/30/24 1046 Narrative: TRANSTHORACIC ECHOCARDIOGRAPHY REPORT Demographics Patient Name: RIN JONES : 1960 Age: 64 year(s) Corporate ID Number: [id number] Gender Female Industrial Training Specialist: Giovanna Pranav Height: [address] Referring Physician: HUEY [...] 1.35 m/s E/A ratio: 0.97 m/s Volume hjqernrra936.99 LV length: 8.51 cm ml Volume mhdltinj83.96 ml LVOT diameter: 1.79 cm Normal sized [...] Valve TR velocity: 2.51 m/s TR gradient: 25.47834 mmHg Estimated RAP: 3 mmHg RVSP: 28.12 [...] (DOPPLER / COLOR) W OR WO CONTRAST [[id number]] Collected: 11/30/24 0725 Order Status: Completed Updated: 11/30/24 1046 Narrative: TRANSTHORACIC ECHOCARDIOGRAPHY REPORT Demographics Patient Name: RIN JONES : 1960 Age: 64 year(s) Corporate ID Number: [id number] Gender Female Industrial Training Specialist: Giovanna Rock Height: 67 inches [facility] Referring Physician: HUEY HURTADO Weight: 225 pounds Interpreting JESSICA RAYMOND MD BMI: 35.24 kg/m^2 Physician: Date of Service: 11/30/2024 Blood Pressure: 118/59 mmHg Room Number: 579 Type of Study: TTE procedure: ECHO COMPLETE (DOPPLER / COLOR) W OR WO CONTRAST. Patient Status: Routine IP [facility] History/Tech Notes: Indication: [...] .99 LV length: 8.51 cm ml Volume fnizskqu34.96 ml LVOT diameter: 1.79 cm Normal sized [...] Valve TR velocity: 2.51 m/s TR gradient: 25.24647 mmHg Estimated RAP: 3 mmHg RVSP: 28.12 [...] imaging. Assessment and Plan: *Paroxysmal Atrial Fib [id number] of 2 also have some wide-complex tachycardia [...] POC-GLUCOSE 140 (H) 70 - 110 mg/dL Nurse Advisor [phone] Glucose, Nova Meter Status: Abnormal Collection Time: 12/05/24 7:21 PM Result Value Ref Range POC-GLUCOSE 145 (H) 70 - 110 mg/dL Nurse Advisor [id number] CBC - Hemogram (SJ-BKR) Status: Abnormal Collection [...] POC-GLUCOSE 143 (H) 70 - 110 mg/dL Nurse Advisor [phone] Glucose, Nova Meter Status: Abnormal Collection Time: 12/06/24 10:36 AM Result Value Ref Range POC-GLUCOSE 150 (H) 70 - 110 mg/dL Nurse Advisor [id number] ECG 12 lead Status: None (In process) Collection Time: 12/06/24 1:16 PM Result Value Ref Range VENTRICULAR RATE EKG/MIN 90 BPM ATRIAL RATE (MCT) 90 BPM [place] Interval 142 ms QRS-INTERVAL (MSEC) 92 ms QT Interval 378 ms QTC Interval 462 ms P [place] 28 degrees R AXIS (MCT) -4 degrees T Wave [place] 21 degrees [place] Diagnosis Normal sinus rhythm Septal infarct , [...] OT Monitor kidney function No emergent dialysis manager ethics consulted Discharge Planning: Patient can be discharged [...] Ext: +++ Pedal edema , no cyanosis SYSTEM ARCHIVE ANALYST: Alert, No focal deficit noted grossly Psy: Cooperative Labs: Results for orders placed or performed during the hospital encounter of 11/30/24 (from the past 24 hours) Glucose, Nova Meter Status: Abnormal Collection Time: 12/05/24 10:23 AM Result Value Ref Range POC-GLUCOSE 141 (H) 70 - 110 mg/dL Nurse Advisor [id number] Hemoglobin Status: Abnormal Collection Time: 12/05/24 3:36 PM Result Value Ref Range Hemoglobin 8.1 (L) 11.2 - 15.7 GM/DL Glucose, Nova Meter Status: Abnormal Collection Time: 12/05/24 5:01 PM Result Value Ref Range POC-GLUCOSE 140 (H) 70 - 110 mg/dL Nurse Advisor [phone] Glucose, Nova Meter Status: Abnormal Collection Time: 12/05/24 7:21 PM Result Value Ref Range POC-GLUCOSE 145 (H) 70 - 110 mg/dL Nurse Advisor [id number] CBC - Hemogram (-BKR) Status: Abnormal Collection [...] POC-GLUCOSE 143 (H) 70 - 110 mg/dL Nurse Advisor [phone] XR chest AP portable Narrative: PORTABLE CHEST [...] for GFR - No emergent need of AUTOMOTIVE SALES ASSOCIATE - Monitor H/H and transfuse for Hgb less than 7.0 - Serologic workup pending Discussed with patient * Blanka Malagon MD - 12/06/2024 8:20 AM EDT Images from the original note were not included. PULMONARY AND CRITICAL CARE Consult Note Date of Service: 12/06/2024 HPI: This is a 64 y.o. year old female with past medical history as below. She initially presented to [facility] with swollen abdomen, abdominal discomfort, and bilateral lower extremity pain. Her creatinine was elevated and as a result, she was transferred to [facility] for he patorenal syndrome. Upon arrival here, [...] BODY REMOVAL; Surgeon: Scott Daley MD; Location: [facility]; Service: Gastroenterology; Laterality: N/A; Allergies: [...] POC-GLUCOSE 141 (H) 70 - 110 mg/dL Nurse Advisor [phone] Hemoglobin Status: Abnormal Collection Time: 12/05/24 3:36 PM Result Value Ref Range Hemoglobin 8.1 (L) 11.2 - 15.7 GM/DL Glucose, Nova Meter Status: Abnormal Collection Time: 12/05/24 5:01 PM Result Value Ref Range POC-GLUCOSE 140 (H) 70 - 110 mg/dL Nurse Advisor [id number] Glucose, Nova Meter Status: Abnormal Collection Time: 12/05/24 7:21 PM Result Value Ref Range POC-GLUCOSE 145 (H) 70 - 110 mg/dL Nurse Advisor [id number] CBC - Hemogram (SJ-BKR) Status: Abnormal Collection [...] POC-GLUCOSE 143 (H) 70 - 110 mg/dL Nurse Advisor [id number] Radiology Radiology Results (last day) Procedure Component Value Units Date/Time XR chest AP portable [[id number]] Resulted: 12/06/24805 Order Status: Sent Updated: 12/06/24805 Microbiology: Microbiology Results (last 7 days) Procedure Component Value Units Date/Time Anaerobic Culture [[id number]] Collected: 11/30/24 1603 Order Status: Completed Specimen: Peritoneal Fluid from Body Fluid Updated: 12/05/24 0634 Result No Anaerobic growth Narrative: Specimen Description: peritoneal fluid Blood Culture [[id number]] Collected: 11/30/24 0340 Order Status: Completed Specimen: Blood from Arm, Left Updated: 12/05/24 0501 Result No growth in 5 days Blood Culture [[id number]] Collected: 11/30/24 0342 Order Status: Completed Specimen: Blood from Arm, Right Updated: 12/05/24 050 Result No growth in 5 days Body Fluid Culture + Gram Stain [[id number]] Collected: 11/30/24 160 Order Status: Completed Specimen: Peritoneal Fluid from Body Fluid Updated: 12/03/24 0907 Result No growth Gram Stain Result No organisms seen No cells seen Narrative: Specimen Description: peritoneal fluid Body Fluid/CSF - Path Review () [[id number]] Collected: 11/30/24 160 Order Status: Completed Specimen: Peritoneal Fluid from Body Fluid Updated: 12/03/24 0654 SENT TO PATHOLOGY FOR REVIEW Yes Scan Result Mesothelial cells. MD German 12/02/2024 AFB Culture And Stain [[id number]] Collected: 11/30/24 160 Order Status: Completed Specimen: Peritoneal Fluid from Body Fluid Updated: 12/01/24 1410 AFB Smear No acid fast bacilli seen Narrative: Specimen Description: peritoneal fluid Glucose, body fluid [[id number]] Collected: 11/30/24 160 Order Status: Completed Specimen: Body Fluid from Peritoneal Fluid Updated: 12/01/24 0710 Glucose, Body Fluid 107 mg/dL BODY FLUID TYPE Peritoneal Narrative: This test has been modified from the automotive accessory installer's instructions and its performance characteristics were determined by the laboratory. The reference intervals and other method performance specifications are unavailable for this test. It is recommended to interpret body fluid concentrations in comparison with the corresponding serum or plasma concentrations and to integrate test results into the clinical context. Protein, body fluid [[id number]] Collected: 11/30/24 160 Order Status: Completed Specimen: Body Fluid from Peritoneal Fluid Updated: 12/01/24 0710 Protein, Fluid 1.9 g/dL BODY FLUID TYPE Peritoneal Narrative: This test has been modified from the automotive accessory installer's instructions and its performance characteristics were determined by the laboratory. The reference intervals and other method performance specifications are unavailable for this test. It is recommended to interpret body fluid concentrations in comparison with the corresponding serum or plasma concentrations and to integrate test results into the clinical context. Urine Culture [[id number]] Collected: 11/30/24 1135 Order Status: Completed Specimen: Urine, Clean Catch Updated: 12/01/24 0649 Result Recollect Specimen - 3 or more organisms suggests contamination Body fluid cell count with differential [[id number]] (Abnormal) Collected: 11/30/24 1603 Order Status: Completed Specimen: Peritoneal Fluid from Body Fluid Updated: 05/01/19 2049 Appearance Cloudy Color Yellow BODY FLUID [...] fluids are not defined. DIFFERENTIAL, BODY FLUID [[id number]] Collected: 11/30/241602 Order Status: Completed Specimen: Peritoneal Fluid from Body Fluid Updated: 11/30/242048 Neutrophils Fluid 5 % Lymphocytes Fluid 46 % Unidentified Mononuclear Cells BF 49 % Lactate dehydrogenase (LDH), body fluid [[id number]] Collected: 11/30/241602 Order Status: Completed Specimen: Peritoneal Fluid from Body Fluid Updated: 11/30/24 181 LDH, Fluid 71 U/L BODY FLUID TYPE Peritoneal Narrative: This test has been modified from the automotive accessory installer's instructions and its performance characteristics were determined by the laboratory. The reference intervals and other method performance specifications are unavailable for this test. It is recommended to interpret body fluid concentrations in comparison with the corresponding serum or plasma concentrations and to integrate test results into the clinical context. Fungus Culture W/ROSA MARIA Or Nimisha Ink [[id number]] Collected: 11/30/241602 Order Status: Completed Specimen: Peritoneal Fluid from Body Fluid Updated: 11/30/24 1754 ROSA MARIA Prep No fungal elements seen Narrative: Specimen Description: peritoneal fluid Total Protein, Body Fluid(SENDOUT) [[id number]] Collected: 11/30/241602 Order Status: Canceled Specimen: Peritoneal Fluid from Body Fluid Updated: 11/30/24 1634 Glucose Body Fluid(SENDOUT) [[id number]] Collected: 11/30/241602 Order Status: Canceled Specimen: Peritoneal Fluid from Body Fluid Updated: 11/30/24 1634 Urine Culture [[id number]] Collected: 11/30/24 1135 Order Status: Canceled Specimen: [...] to continue with albumin/diuretics no indication for AUTOMOTIVE SALES ASSOCIATE Oxygenation improved 3 L nasal cannula, leg [...] personally evaluated the patient and performed a odbz-ku-crbj diagnostic evaluation on this patient; I have reviewed history, performed physical examination, reviewed laboratory studies. , andreviewed images independent of radiologist. I have actively directed the medical care, formulated assessemnt and plan of care. Patient requires a high complexity of decision making for assessment. 46 minutes pulmonary care clinical time was spent. Voice balloon pilot technology (Healarium) is used for dictation of this note and sound-alike words might be erroneously placed despite reviewing the note for accuracy.Errors in dictation may reflect use of voice recognition software and not all errors in balloon pilot may have been detectedprior to signing * [...] Gar Admission Date: 11/30/2024 Primary Care Provider: [facility] Find-a-Doc Chief Complaint/Reason for Consult: No chief complaint on file. History of Present Illness: Mary Gar is a 64 y.o. female, admitted on: 11/30/2024 1:43 AM. presented to [facility] with swollen abdomen, abdominal discomfort and bilateral lower extremity pitting edema. Patient's BUN/creatinine elevated, and patient subsequently transferred to [facility] for hepatorenal syndrome evaluation. Admits to [...] 25 g 25 g intravenous Q6H NAS Bai MD 25 g at 12/05/24 0554 [...] Huey Hurtado MD 20 mg at 12/04/24 215 benzocaine-menthoL (CEPACOL) lozenge 1 lozenge 1 lozenge [...] Culture And Stain AFB Culture And Stain [facility] Non-Supervisor Cytology [facility] Non-Supervisor Cytology DIFFERENTIAL, BODY FLUID DIFFERENTIAL, BODY FLUID Body Fluid/CSF - Path Review () Body Fluid/CSF - Path Review () [facility] BONE MARROW SMEAR, ASPIRATION, AND STAIN [facility] BONE MARROW SMEAR, ASPIRATION, AND [...] BODY REMOVAL; Surgeon: Scott Daley MD; Location: [facility]; Service: Gastroenterology; Laterality: N/A; Allergies: [...] Normal range of motion. Integumentary: Warm, Dry, Mountain. Neurologic: No obvious focal deficit Psychiatric: Cooperative, Appropriate mood & affect. Labs, Imaging, and Other Studies: Echo Results (last 7 days) Procedure Component Value Units Date/Time ECHO COMPLETE (DOPPLER / COLOR) W OR WO CONTRAST [[id number]] Collected: 11/30/24724 Order Status: Completed Updated: 11/30/24 104 Narrative: TRANSTHORACIC ECHOCARDIOGRAPHY REPORT Demographics Patient Name: RIN JONES : 1960 Age: 64 year(s) Corporate ID Number: [id number] Gender Female Industrial Training Specialist: Giovanna Rock Height: 67 inches [facility] Referring Physician: HUEY HURTADO Weight: 225 pounds Interpreting JESSICA RAYMOND MD BMI: 35.24 kg/m^2 Physician: Date of Service: 11/30/2024 Blood Pressure: 118/59 mmHg Room Number: 579 Type of Study: TTE procedure: ECHO COMPLETE (DOPPLER / COLOR) W OR WO CONTRAST. Patient Status: Routine [facility] History/Tech Notes: [...] 1.35 m/s E/A ratio: 0.97 m/s Volume vpsisorsx589.99 LV length: 8.51 cm ml Volume yozbpmvx73.96 ml LVOT diameter: 1.79 cm Normal sized [...] Valve TR velocity: 2.51 m/s TR gradient: 25.00857 mmHg Estimated RAP: 3 mmHg RVSP: 28.12 [...] (DOPPLER / COLOR) W OR WO CONTRAST [[id number]] Collected: 11/30/24 0725 Order Status: Completed Updated: 11/30/246 Narrative: TRANSTHORACIC ECHOCARDIOGRAPHY REPORT Demographics Patient Name: RIN JONES : 1960 Age: 64 year(s) Corporate ID Number: [id number] Gender Female Industrial Training Specialist: Giovanna Rock Height: 67 inches [facility] Referring Physician: HUEY HURTADO Weight: 225 pounds Interpreting JESSICA RAYMOND MD BMI: 35.24 kg/m^2 Physician: Date of Service: 11/30/2024 Blood Pressure: 118/59 mmHg Room Number: 579 Type of Study: TTE procedure: ECHO COMPLETE (DOPPLER / COLOR) W OR WO CONTRAST. Patient Status: Routine IP Study Location: [facility] Quality: Adequate visualization History/Tech Notes: Indication: shortness [...] 1.35 m/s E/A ratio: 0.97 m/s Volume xfckuxggv271.99 LV length: 8.51 cm ml Volume noimlkng71.96 ml LVOT diameter: 1.79 cm Normal sized [...] Valve TR velocity: 2.51 m/s TR gradient: 25.30373 mmHg Estimated RAP: 3 mmHg RVSP: 28.12 [...] imaging. Assessment and Plan: *Paroxysmal Atrial Fib [id number] of 2 also have some wide-complex tachycardia [...] BODY REMOVAL; Surgeon: Scott Daley MD; Location: [facility]; Service: Gastroenterology; Laterality: N/A; General [...] Mobility Not assessed, patient ambulatory. Outcome Measures -[facility] Basic Mobility Inpatient Short Form How [...] Score Raw score=12 t-Scale score=35.33 Standard error=3.08 [facility] 0-100%=68.66% MDC=4.72 A raw score of [...] Ext: +++ Pedal edema , no cyanosis SYSTEM ARCHIVE ANALYST: Alert, No focal deficit noted grossly Psy: Cooperative Labs: Results for orders placed or performed during the hospital encounter of 11/30/24 (from the past 24 hours) Glucose, Nova Meter Status: Abnormal Collection Time: 12/04/24 10:52 AM Result Value Ref Range POC-GLUCOSE 136 (H) 70 - 110 mg/dL Nurse Advisor [id number] Basic Metabolic Panel Status: Abnormal Collection Time: [...] POC-GLUCOSE 137 (H) 70 - 110 mg/dL Nurse Advisor [id number] ECG 12 lead Status: None (In process) Collection Time: 12/04/24 8:08 PM Result Value Ref Range SYSTOLIC BLOOD PRESSURE (MCT) 133 mmHg DIASTOLIC BLOOD PRESSURE (MCT) 61 mmHg VENTRICULAR RATE EKG/MIN 85 BPM ATRIAL RATE (MCT) 85 BPM [place] Interval 140 ms QRS-INTERVAL (MSEC) 94 ms QT Interval 426 ms QTC Interval 506 ms P [place] 44 degrees R AXIS (MCT) 27 degrees T Wave [place] -27 degrees [place] Diagnosis Normal sinus rhythm Nonspecific T wave abnormality Abnormal ECG When compared with ECG of 04-DEC-2024 03:25, QT has lengthened Glucose, Nova Meter Status: Abnormal Collection Time: 12/04/24 10:20 PM Result Value Ref Range POC-GLUCOSE 147 (H) 70 - 110 mg/dL Nurse Advisor [id number] Hemoglobin Status: Abnormal Collection Time: 12/04/24 11:54 PM Result Value Ref Range Hemoglobin 8.7 (L) 11.2 - 15.7 GM/DL CBC - Hemogram (-BK) Status: Abnormal Collection Time: 12/05/24 3:20 AM [...] POC-GLUCOSE 123 (H) 70 - 110 mg/dL Nurse Advisor [id number] XR chest AP portable Narrative: PORTABLE CHEST [...] renal function - No emergent need of AUTOMOTIVE SALES ASSOCIATE - Monitor H/H and transfuse for Hgb [...] history as below. She initially presented to [facility] with swollen abdomen, abdominal discomfort, and bilateral lower extremity pain. Her creatinine was elevated and as a result, she was transferred to [facility] for he patorenal syndrome. Upon arrival here, [...] BODY REMOVAL; Surgeon: Scott Daley MD; Location: [facility]; Service: Gastroenterology; Laterality: N/A; Allergies: [...] POC-GLUCOSE 136 (H) 70 - 110 mg/dL Nurse Advisor [id number] Basic Metabolic Panel Status: Abnormal Collection Time: [...] POC-GLUCOSE 137 (H) 70 - 110 mg/dL Nurse Advisor [id number] ECG 12 lead Status: None (In process) Collection Time: 12/04/24 8:08 PM Result Value Ref Range SYSTOLIC BLOOD PRESSURE (MCT) 133 mmHg DIASTOLIC BLOOD PRESSURE (MCT) 61 mmHg VENTRICULAR RATE EKG/MIN 85 BPM ATRIAL RATE (MCT) 85 BPM [place] Interval 140 ms QRS-INTERVAL (MSEC) 94 ms QT Interval 426 ms QTC Interval 506 ms P [place] 44 degrees R AXIS (MCT) 27 degrees T Wave [place] -27 degrees [place] Diagnosis Normal sinus rhythm Nonspecific T wave abnormality Abnormal ECG When compared with ECG of 04-DEC-2024 03:25, QT has lengthened Glucose, Nova Meter Status: Abnormal Collection Time: 12/04/24 10:20 PM Result Value Ref Range POC-GLUCOSE 147 (H) 70 - 110 mg/dL Nurse Advisor [id number] Hemoglobin Status: Abnormal Collection Time: 12/04/24 11:54 [...] POC-GLUCOSE 123 (H) 70 - 110 mg/dL Nurse Advisor [id number] Radiology Radiology Results (last day) Procedure Component Value Units Date/Time XR chest AP portable [[id number]] Collected: 12/04/24 0923 Order Status: Completed Updated: [...] Procedure Component Value Units Date/Time Anaerobic Culture [[id number]] Collected: 11/30/24 1603 Order Status: Completed Specimen: Peritoneal Fluid from Body Fluid Updated: 12/05/24 0634 Result No Anaerobic growth Narrative: Specimen Description: peritoneal fluid Blood Culture [[id number]] Collected: 11/30/24 0340 Order Status: Completed Specimen: Blood from Arm, Left Updated: 12/05/24 0501 Result No growth in 5 days Blood Culture [[id number]] Collected: 11/30/24 0342 Order Status: Completed Specimen: Blood from Arm, Right Updated: 12/05/24 0501 Result No growth in 5 days Body Fluid Culture + Gram Stain [[id number]] Collected: 11/30/24 1603 Order Status: Completed Specimen: Peritoneal Fluid from Body Fluid Updated: 12/03/24 0907 Result No growth Gram Stain Result No organisms seen No cells seen Narrative: Specimen Description: peritoneal fluid Body Fluid/CSF - Path Review (SJ) [[id number]] Collected: 11/30/24 160 Order Status: Completed Specimen: Peritoneal Fluid from Body Fluid Updated: 12/03/24 0654 SENT TO PATHOLOGY FOR REVIEW Yes Scan Result Mesothelial cells. MD German 12/02/2024 AFB Culture And Stain [[id number]] Collected: 11/30/24 160 Order Status: Completed Specimen: Peritoneal Fluid from Body Fluid Updated: 12/01/24 1410 AFB Smear No acid fast bacilli seen Narrative: Specimen Description: peritoneal fluid Glucose, body fluid [[id number]] Collected: 11/30/24 1603 Order Status: Completed Specimen: Body Fluid from Peritoneal Fluid Updated: 12/01/24 0710 Glucose, Body Fluid 107 mg/dL BODY FLUID TYPE Peritoneal Narrative: This test has been modified from the automotive accessory installer's instructions and its performance characteristics were determined by the laboratory. The reference intervals and other method performance specifications are unavailable for this test. It is recommended to interpret body fluid concentrations in comparison with the corresponding serum or plasma concentrations and to integrate test results into the clinical context. Protein, body fluid [[id number]] Collected: 11/30/24 1603 Order Status: Completed Specimen: Body Fluid from Peritoneal Fluid Updated: 12/01/24 0710 Protein, Fluid 1.9 g/dL BODY FLUID TYPE Peritoneal Narrative: This test has been modified from the automotive accessory installer's instructions and its performance characteristics were determined by the laboratory. The reference intervals and other method performance specifications are unavailable for this test. It is recommended to interpret body fluid concentrations in comparison with the corresponding serum or plasma concentrations and to integrate test results into the clinical context. Urine Culture [[id number]] Collected: 11/30/24 1135 Order Status: Completed Specimen: Urine, Clean Catch Updated: 12/01/24 0649 Result Recollect Specimen - 3 or more organisms suggests contamination Body fluid cell count with differential [[id number]] (Abnormal) Collected: 11/30/241602 Order Status: Completed Specimen: [...] fluids are not defined. DIFFERENTIAL, BODY FLUID [[id number]] Collected: 11/30/241602 Order Status: Completed Specimen: Peritoneal Fluid from Body Fluid Updated: 11/30/242048 Neutrophils Fluid 5 % Lymphocytes Fluid 46 % Unidentified Mononuclear Cells BF 49 % Lactate dehydrogenase (LDH), body fluid [[id number]] Collected: 11/30/241602 Order Status: Completed Specimen: Peritoneal Fluid from Body Fluid Updated: 11/30/249 LDH, Fluid 71 U/L BODY FLUID TYPE Peritoneal Narrative: This test has been modified from the automotive accessory installer's instructions and its performance characteristics were determined by the laboratory. The reference intervals and other method performance specifications are unavailable for this test. It is recommended to interpret body fluid concentrations in comparison with the corresponding serum or plasma concentrations and to integrate test results into the clinical context. Fungus Culture W/ROSA MARIA Or Nimisha Ink [[id number]] Collected: 11/30/241602 Order Status: Completed Specimen: Peritoneal Fluid from Body Fluid Updated: 11/30/24 1754 ROSA MARIA Prep No fungal elements seen Narrative: Specimen Description: peritoneal fluid Total Protein, Body Fluid(SENDOUT) [[id number]] Collected: 11/30/241602 Order Status: Canceled Specimen: Peritoneal Fluid from Body Fluid Updated: 11/30/24 1634 Glucose Body Fluid(SENDOUT) [[id number]] Collected: 11/30/241602 Order Status: Canceled Specimen: Peritoneal Fluid from Body Fluid Updated: 11/30/24 1634 Urine Culture [[id number]] Collected: 11/30/24 1135 Order Status: Canceled Specimen: [...] and lisinopril. Per nephrology there is no AUTOMOTIVE SALES ASSOCIATE indication at this time. Ultrasound renal on [...] multidisciplinary team including nurse practitioner, nurse, RT, breeder hen service technician, pharmacist, and case management during multidisciplinary round. I Dr.Hazim Jeramy MD, have personally evaluated the patient and performed a skem-dv-kaig diagnostic evaluation on this patient; I have Obtained history, performed physical examination, reviewed laboratory studies. I have reviewed images independent of radiologist. I have actively directed the medical care, formulated diagnosis, and the plan of care. Patient requires a high complexity of decision making for assessment. Voice balloon pilot technology (Healarium) is used for dictation of this note and sound-alike words might be erroneously placed despite reviewing the note for accuracy. Errors in dictation may reflect use of voice recognition software and not all errors in balloon pilot may have been detected prior to signing. [...] POC-GLUCOSE 136 (H) 70 - 110 mg/dL Nurse Advisor [id number] Basic Metabolic Panel Status: Abnormal Collection Time: [...] POC-GLUCOSE 137 (H) 70 - 110 mg/dL Nurse Advisor [id number] ECG 12 lead Status: None (In process) Collection Time: 12/04/24 8:08 PM Result Value Ref Range SYSTOLIC BLOOD PRESSURE (MCT) 133 mmHg DIASTOLIC BLOOD PRESSURE (MCT) 61 mmHg VENTRICULAR RATE EKG/MIN 85 BPM ATRIAL RATE (MCT) 85 BPM [place] Interval 140 ms QRS-INTERVAL (MSEC) 94 ms QT Interval 426 ms QTC Interval 506 ms P [place] 44 degrees R AXIS (MCT) 27 degrees T Wave [place] -27 degrees [place] Diagnosis Normal sinus rhythm Nonspecific T wave abnormality Abnormal ECG When compared with ECG of 04-DEC-2024 03:25, QT has lengthened Glucose, Nova Meter Status: Abnormal Collection Time: 12/04/24 10:20 PM Result Value Ref Range POC-GLUCOSE 147 (H) 70 - 110 mg/dL Nurse Advisor [id number] Hemoglobin Status: Abnormal Collection Time: 12/04/24 11:54 [...] admitted on: 11/30/2024 1:43 AM. presented to [facility] with swollen abdomen, abdominal discomfort and bilateral lower extremity pitting edema. Patient's BUN/creatinine elevated, and patient subsequently transferred to [facility] for hepatorenal syndrome evaluation. Admits to [...] human 25% 25 g intravenous Q6H NAS amiodarone 150 mg intravenous Once atorvastatin 20 [...] 25 g 25 g intravenous Q6H [facility] Timothy Bai MD albuterol 2.5 mg /3 [...] Culture And Stain AFB Culture And Stain [facility] Non-Supervisor Cytology [facility] Non-Supervisor Cytology DIFFERENTIAL, BODY FLUID DIFFERENTIAL, BODY FLUID Body Fluid/CSF - Path Review () Body Fluid/CSF - Path Review () [facility] BONE MARROW SMEAR, ASPIRATION, AND STAIN [facility] BONE MARROW SMEAR, ASPIRATION, AND [...] BODY REMOVAL; Surgeon: Scott Daley MD; Location: [facility]; Service: Gastroenterology; Laterality: N/A; Allergies: [...] Normal range of motion. Integumentary: Warm, Dry, [place]. Neurologic: No obvious focal deficit Psychiatric: Cooperative, Appropriate mood & affect. Labs, Imaging, and Other Studies: Echo Results (last 7 days) Procedure Component Value Units Date/Time ECHO COMPLETE (DOPPLER / COLOR) W OR WO CONTRAST [[id number]] Collected: 11/30/24724 Order Status: Completed Updated: 11/30/24 104 Narrative: TRANSTHORACIC ECHOCARDIOGRAPHY REPORT Demographics Patient Name: RIN JONES : 1960 Age: 64 year(s) Corporate ID Number: [id number] Gender Female Industrial Training Specialist: Giovanna Rock Height: 67 inches [facility] Referring Physician: HUEY HURTADO Weight: 225 pounds Interpreting EJSSICA RAYMOND MD BMI: 35.24 kg/m^2 Physician: Date [...] 1.35 m/s E/A ratio: 0.97 m/s Volume qaapynynj645.99 LV length: 8.51 cm ml Volume vamstobw26.96 ml LVOT diameter: 1.79 cm Normal sized [...] Valve TR velocity: 2.51 m/s TR gradient: 25.78440 mmHg Estimated RAP: 3 mmHg RVSP: 28.12 [...] (DOPPLER / COLOR) W OR WO CONTRAST [[id number]] Collected: 11/30/2425 Order Status: Completed Updated: 11/30/24 104 Narrative: TRANSTHORACIC ECHOCARDIOGRAPHY REPORT Demographics Patient Name: RIN JONES : 1960 Age: 64 year(s) Corporate ID Number: [id number] Gender Female Industrial Training Specialist: Giovanna Rock Height: 67 inches [facility] Referring Physician: HUEY HURTADO Weight: 225 pounds Interpreting JESSICA RAYMOND MD BMI: 35.24 kg/m^2 Physician: Date of Service: 11/30/2024 Blood Pressure: 118/59 mmHg Room Number: 579 Type of Study: TTE procedure: ECHO COMPLETE (DOPPLER / COLOR) W OR WO CONTRAST. Patient Status: Routine [facility] History/Tech Notes: Indication: [...] 1.35 m/s E/A ratio: 0.97 m/s Volume xojidatcp461.99 LV length: 8.51 cm ml Volume cusymhcs42.96 ml LVOT diameter: 1.79 cm Normal sized [...] Valve TR velocity: 2.51 m/s TR gradient: 25.26435 mmHg Estimated RAP: 3 mmHg RVSP: 28.12 [...] imaging. Assessment and Plan: *Paroxysmal Atrial Fib [id number] of 2 also have some wide-complex tachycardia [...] 97 BPM ATRIAL RATE (MCT) 97 BPM [place] Interval 150 ms QRS-INTERVAL (MSEC) 88 ms QT Interval 362 ms QTC Interval 459 ms P [place] 40 degrees R AXIS (MCT) 8 degrees T Wave [place] -8 degrees [place] Diagnosis Normal sinus rhythm Normal ECG No previous ECGs available Confirmed by DEYSI FOSS M.D. ([id number]) on 12/03/2024 5:59:01 PM Glucose, Nova Meter Status: Abnormal Collection Time: 12/03/24 10:45 AM Result Value Ref Range POC-GLUCOSE 156 (H) 70 - 110 mg/dL Nurse Advisor [id number] ECG 12 lead Status: None Collection Time: 12/03/24 2:16 PM Result Value Ref Range VENTRICULAR RATE EKG/MIN 136 BPM ATRIAL RATE (MCT) 73 BPM QRS-INTERVAL (MSEC) 88 ms QT Interval 304 ms QTC Interval 457 ms R AXIS (MCT) -11 degrees T Wave [place] -58 degrees [place] Diagnosis Atrial fibrillation with rapid ventricular response Possible Anterolateral infarct , age undetermined Possible abberancy Confirmed by DEYSI FOSS M.D. ([id number]) on 12/03/2024 5:58:45 PM Glucose, Nova Meter Status: Abnormal Collection Time: 12/03/24 5:19 PM Result Value Ref Range POC-GLUCOSE 146 (H) 70 - 110 mg/dL Nurse Advisor [id number] Glucose, Nova Meter Status: Abnormal Collection Time: 12/03/24 9:41 PM Result Value Ref Range POC-GLUCOSE 146 (H) 70 - 110 mg/dL Nurse Advisor [id number] Hemoglobin Status: Abnormal Collection Time: 12/04/24 1:04 AM Result Value Ref Range Hemoglobin 9.0 (L) 11.2 - 15.7 GM/DL ECG 12 lead Status: None (In process) Collection Time: 12/04/24 3:25 AM Result Value Ref Range SYSTOLIC BLOOD PRESSURE (MCT) 165 mmHg DIASTOLIC BLOOD PRESSURE (MCT) 77 mmHg VENTRICULAR RATE EKG/MIN 80 BPM ATRIAL RATE (MCT) 80 BPM [place] Interval 154 ms QRS-INTERVAL (MSEC) 76 ms QT Interval 380 ms QTC Interval 438 ms P [place] 47 degrees R AXIS (MCT) 44 degrees T Wave [place] -30 degrees [place] Diagnosis Normal sinus rhythm Low voltage QRS [...] POC-GLUCOSE 155 (H) 70 - 110 mg/dL Nurse Advisor [phone] Blood gas, arterial Status: Abnormal Collection Time: [...] ARTERIAL 8.6 (L) 12.0 - 18.0 g/dL [facility] COLLECTION SITE Right Brachial Arterial Puncture Yes Blood Gas O2 Delivery Device Cannula Oxygen Flow Rate 3 Blood Gas PT Temperature C 37.0 Sen's Test Not Applicable Critical Values Notification Critical Blood gas called to DAYANARA MATIAS . Results acknowledged/read back to [id number] and confirmed on 12/04/2024 07:09 ABG Number [...] history as below. She initially presented to [facility] with swollen abdomen, abdominal discomfort, and bilateral lower extremity pain. Her creatinine was elevated and as a result, she was transferred to [facility] for he patorenal syndrome. Upon arrival here, [...] BODY REMOVAL; Surgeon: Scott Daley MD; Location: [facility]; Service: Gastroenterology; Laterality: N/A; Allergies: [...] 97 BPM ATRIAL RATE (MCT) 97 BPM [place] Interval 150 ms QRS-INTERVAL (MSEC) 88 ms QT Interval 362 ms QTC Interval 459 ms P [place] 40 degrees R AXIS (MCT) 8 degrees T Wave [place] -8 degrees [place] Diagnosis Normal sinus rhythm Normal ECG No previous ECGs available Confirmed by DEYSI FOSS M.D. ([id number]) on 12/03/2024 5:59:01 PM Glucose, Nova Meter Status: Abnormal Collection Time: 12/03/24 10:45 AM Result Value Ref Range POC-GLUCOSE 156 (H) 70 - 110 mg/dL Nurse Advisor [id number] ECG 12 lead Status: None Collection Time: 12/03/24 2:16 PM Result Value Ref Range VENTRICULAR RATE EKG/MIN 136 BPM ATRIAL RATE (MCT) 73 BPM QRS-INTERVAL (MSEC) 88 ms QT Interval 304 ms QTC Interval 457 ms R AXIS (MCT) -11 degrees T Wave [place] -58 degrees [place] Diagnosis Atrial fibrillation with rapid ventricular response Possible Anterolateral infarct , age undetermined Possible abberancy Confirmed by DEYSI FOSS M.D. ([id number]) on 12/03/2024 5:58:45 PM Glucose, Nova Meter Status: Abnormal Collection Time: 12/03/24 5:19 PM Result Value Ref Range POC-GLUCOSE 146 (H) 70 - 110 mg/dL Nurse Advisor [id number] Glucose, Nova Meter Status: Abnormal Collection Time: 12/03/24 9:41 PM Result Value Ref Range POC-GLUCOSE 146 (H) 70 - 110 mg/dL Nurse Advisor [phone] Hemoglobin Status: Abnormal Collection Time: 12/04/24 1:04 AM Result Value Ref Range Hemoglobin 9.0 (L) 11.2 - 15.7 GM/DL ECG 12 lead Status: None (In process) Collection Time: 12/04/24 3:25 AM Result Value Ref Range SYSTOLIC BLOOD PRESSURE (MCT) 165 mmHg DIASTOLIC BLOOD PRESSURE (MCT) 77 mmHg VENTRICULAR RATE EKG/MIN 80 BPM ATRIAL RATE (MCT) 80 BPM [place] Interval 154 ms QRS-INTERVAL (MSEC) 76 ms QT Interval 380 ms QTC Interval 438 ms P [place] 47 degrees R AXIS (MCT) 44 degrees T Wave [place] -30 degrees [place] Diagnosis Normal sinus rhythm Low voltage QRS [...] POC-GLUCOSE 155 (H) 70 - 110 mg/dL Nurse Advisor [phone] Blood gas, arterial Status: Abnormal Collection Time: [...] ARTERIAL 8.6 (L) 12.0 - 18.0 g/dL [facility] COLLECTION SITE Right Brachial Arterial Puncture Yes Blood Gas O2 Delivery Device Cannula Oxygen Flow Rate 3 Blood Gas PT Temperature C 37.0 Sen's Test Not Applicable Critical Values Notification Critical Blood gas called to DAYANARA MATIAS . Results acknowledged/read back to [id number] and confirmed on 12/04/2024 07:09 ABG Number of Draw Attempts 1 FIO2 Blood Gas Temperature Corrected Results No No Radiology Radiology Results (last day) Procedure Component Value Units Date/Time XR chest AP portable [[id number]] Resulted: 12/04/24749 Order Status: Sent Updated: 12/04/24750 XR chest AP portable [[id number]] Collected: 12/03/241805 Order Status: Completed Updated: 12/03/241807 [...] Procedure Component Value Units Date/Time Anaerobic Culture [[id number]] Collected: 11/30/24 1603 Order Status: Completed Specimen: Peritoneal Fluid from Body Fluid Updated: 12/04/24 075 Result No Anaerobic growth Narrative: Specimen Description: peritoneal fluid Blood Culture [[id number]] Collected: 11/30/24 0340 Order Status: Completed Specimen: Blood from Arm, Left Updated: 12/04/24 0501 Result No growth in 4 days Blood Culture [[id number]] Collected: 11/30/24 0342 Order Status: Completed Specimen: Blood from Arm, Right Updated: 12/04/24 0501 Result No growth in 4 days Body Fluid Culture + Gram Stain [[id number]] Collected: 11/30/24 160 Order Status: Completed Specimen: Peritoneal Fluid from Body Fluid Updated: 12/03/24 0907 Result No growth Gram Stain Result No organisms seen No cells seen Narrative: Specimen Description: peritoneal fluid Body Fluid/CSF - Path Review () [[id number]] Collected: 11/30/24 160 Order Status: Completed Specimen: Peritoneal Fluid from Body Fluid Updated: 12/03/24 0654 SENT TO PATHOLOGY FOR REVIEW Yes Scan Result Mesothelial cells. MD German 12/02/2024 AFB Culture And Stain [[id number]] Collected: 11/30/24 160 Order Status: Completed Specimen: Peritoneal Fluid from Body Fluid Updated: 12/01/24 1410 AFB Smear No acid fast bacilli seen Narrative: Specimen Description: peritoneal fluid Glucose, body fluid [[id number]] Collected: 11/30/24 160 Order Status: Completed Specimen: Body Fluid from Peritoneal Fluid Updated: 12/01/24 0710 Glucose, Body Fluid 107 mg/dL BODY FLUID TYPE Peritoneal Narrative: This test has been modified from the automotive accessory installer's instructions and its performance characteristics were determined by the laboratory. The reference intervals and other method performance specifications are unavailable for this test. It is recommended to interpret body fluid concentrations in comparison with the corresponding serum or plasma concentrations and to integrate test results into the clinical context. Protein, body fluid [[id number]] Collected: 11/30/24 160 Order Status: Completed Specimen: Body Fluid from Peritoneal Fluid Updated: 12/01/24 0710 Protein, Fluid 1.9 g/dL BODY FLUID TYPE Peritoneal Narrative: This test has been modified from the automotive accessory installer's instructions and its performance characteristics were determined by the laboratory. The reference intervals and other method performance specifications are unavailable for this test. It is recommended to interpret body fluid concentrations in comparison with the corresponding serum or plasma concentrations and to integrate test results into the clinical context. Urine Culture [[id number]] Collected: 11/30/24 1135 Order Status: Completed Specimen: Urine, Clean Catch Updated: 12/01/24 0649 Result Recollect Specimen - 3 or more organisms suggests contamination Body fluid cell count with differential [[id number]] (Abnormal) Collected: 11/30/24 1603 Order Status: Completed [...] fluids are not defined. DIFFERENTIAL, BODY FLUID [[id number]] Collected: 11/30/241602 Order Status: Completed Specimen: Peritoneal Fluid from Body Fluid Updated: 11/30/24 2049 Neutrophils Fluid 5 % Lymphocytes Fluid 46 % Unidentified Mononuclear Cells BF 49 % Lactate dehydrogenase (LDH), body fluid [[id number]] Collected: 11/30/241602 Order Status: Completed Specimen: Peritoneal Fluid from Body Fluid Updated: 11/30/24 1819 LDH, Fluid 71 U/L BODY FLUID TYPE Peritoneal Narrative: This test has been modified from the automotive accessory installer's instructions and its performance characteristics were determined by the laboratory. The reference intervals and other method performance specifications are unavailable for this test. It is recommended to interpret body fluid concentrations in comparison with the corresponding serum or plasma concentrations and to integrate test results into the clinical context. Fungus Culture W/ROSA MARIA Or Nimisha Ink [[id number]] Collected: 11/30/241602 Order Status: Completed Specimen: Peritoneal Fluid from Body Fluid Updated: 11/30/24 1754 ROSA MARIA Prep No fungal elements seen Narrative: Specimen Description: peritoneal fluid Total Protein, Body Fluid(SENDOUT) [[id number]] Collected: 11/30/24 160 Order Status: Canceled Specimen: Peritoneal Fluid from Body Fluid Updated: 11/30/24 1634 Glucose Body Fluid(SENDOUT) [[id number]] Collected: 11/30/24 160 Order Status: Canceled Specimen: Peritoneal Fluid from Body Fluid Updated: 11/30/24 1634 Urine Culture [[id number]] Collected: 11/30/24 1135 Order Status: Canceled Specimen: [...] and lisinopril. Per nephrology there is no AUTOMOTIVE SALES ASSOCIATE indication at this time. Ultrasound renal on [...] multidisciplinary team including nurse practitioner, nurse, RT, breeder hen service technician, pharmacist, and case management during multidisciplinary round. I Dr.Hazim Jeramy MD, have personally evaluated the patient and performed a [id number] diagnostic evaluation on this patient; I have Obtained history, performed physical examination, reviewed laboratory studies. I have reviewed images independent of radiologist. I have actively directed the medical care, formulated diagnosis, and the plan of care. Patient requires a high complexity of decision making for assessment. Voice balloon pilot technology ([employer]) is used for dictation of this note and sound-alike words might be erroneously placed despite reviewing the note for accuracy. Errors in dictation may reflect use of voice recognition software and not all errors in balloon pilot may have been detected prior to signing. [...] Ext: +++ Pedal edema , no cyanosis SYSTEM ARCHIVE ANALYST: Alert, No focal deficit noted grossly Psy: [...] 97 BPM ATRIAL RATE (MCT) 97 BPM [place] Interval 150 ms QRS-INTERVAL (MSEC) 88 ms QT Interval 362 ms QTC Interval 459 ms P [place] 40 degrees R AXIS (MCT) 8 degrees T Wave [place] -8 degrees [place] Diagnosis Normal sinus rhythm Normal ECG No previous ECGs available Confirmed by DEYSI FOSS M.D. ([id number]) on 12/03/2024 5:59:01 PM Glucose, Nova Meter Status: Abnormal Collection Time: 12/03/24 10:45 AM Result Value Ref Range POC-GLUCOSE 156 (H) 70 - 110 mg/dL Nurse Advisor [id number] ECG 12 lead Status: None Collection Time: 12/03/24 2:16 PM Result Value Ref Range VENTRICULAR RATE EKG/MIN 136 BPM ATRIAL RATE (MCT) 73 BPM QRS-INTERVAL (MSEC) 88 ms QT Interval 304 ms QTC Interval 457 ms R AXIS (MCT) -11 degrees T Wave [place] -58 degrees [place] Diagnosis Atrial fibrillation with rapid ventricular response Possible Anterolateral infarct , age undetermined Possible abberancy Confirmed by DEYSI FOSS M.D. ([id number]) on 12/03/2024 5:58:45 PM Glucose, Nova Meter Status: Abnormal Collection Time: 12/03/24 5:19 PM Result Value Ref Range POC-GLUCOSE 146 (H) 70 - 110 mg/dL Nurse Advisor [id number] Glucose, Nova Meter Status: Abnormal Collection Time: 12/03/24 9:41 PM Result Value Ref Range POC-GLUCOSE 146 (H) 70 - 110 mg/dL Nurse Advisor [phone] Hemoglobin Status: Abnormal Collection Time: 12/04/24 1:04 AM Result Value Ref Range Hemoglobin 9.0 (L) 11.2 - 15.7 GM/DL ECG 12 lead Status: None (In process) Collection Time: 12/04/24 3:25 AM Result Value Ref Range SYSTOLIC BLOOD PRESSURE (MCT) 165 mmHg DIASTOLIC BLOOD PRESSURE (MCT) 77 mmHg VENTRICULAR RATE EKG/MIN 80 BPM ATRIAL RATE (MCT) 80 BPM [place] Interval 154 ms QRS-INTERVAL (MSEC) 76 ms QT Interval 380 ms QTC Interval 438 ms P [place] 47 degrees R AXIS (MCT) 44 degrees T Wave [place] -30 degrees [place] Diagnosis Normal sinus rhythm Low voltage QRS [...] POC-GLUCOSE 155 (H) 70 - 110 mg/dL Nurse Advisor [id number] Blood gas, arterial Status: Abnormal Collection Time: [...] ARTERIAL 8.6 (L) 12.0 - 18.0 g/dL [facility] COLLECTION SITE Right Brachial Arterial Puncture Yes Blood Gas O2 Delivery Device Cannula Oxygen Flow Rate 3 Blood Gas PT Temperature C 37.0 Sen's Test Not Applicable Critical Values Notification Critical Blood gas called to DAYANARA MATIAS . Results acknowledged/read back to [id number] and confirmed on 12/04/2024 07:09 ABG Number [...] renal function - No emergent need of AUTOMOTIVE SALES ASSOCIATE - Monitor H/H and transfuse for Hgb [...] Ext: +++ Pedal edema , no cyanosis SYSTEM ARCHIVE ANALYST: Alert, No focal deficit noted grossly Psy: Cooperative Labs: Results for orders placed or performed during the hospital encounter of 11/30/24 (from the past 24 hours) Glucose, Nova Meter Status: Abnormal Collection Time: 12/02/24 5:18 PM Result Value Ref Range POC-GLUCOSE 128 (H) 70 - 110 mg/dL Nurse Advisor [phone] Hemoglobin Status: Abnormal Collection Time: 12/02/24 6:03 PM Result Value Ref Range Hemoglobin 9.1 (L) 11.2 - 15.7 GM/DL Glucose, Nova Meter Status: Abnormal Collection Time: 12/02/24 8:06 PM Result Value Ref Range POC-GLUCOSE 144 (H) 70 - 110 mg/dL Nurse Advisor [id number] Hemoglobin Status: Abnormal Collection Time: 12/02/24 11:06 PM Result Value Ref Range Hemoglobin 8.9 (L) 11.2 - 15.7 GM/DL Glucose, Nova Meter Status: Abnormal Collection Time: 12/03/24 1:10 AM Result Value Ref Range POC-GLUCOSE 164 (H) 70 - 110 mg/dL Nurse Advisor [id number] Glucose, Nova Meter Status: Abnormal Collection Time: 12/03/24 1:12 AM Result Value Ref Range POC-GLUCOSE 168 (H) 70 - 110 mg/dL Nurse Advisor [phone] Glucose, Nova Meter Status: Abnormal Collection Time: 12/03/24 5:13 AM Result Value Ref Range POC-GLUCOSE 142 (H) 70 - 110 mg/dL Nurse Advisor [id number] Magnesium Status: Normal Collection Time: 12/03/24 7:39 [...] 97 BPM ATRIAL RATE (MCT) 97 BPM [place] Interval 150 ms QRS-INTERVAL (MSEC) 88 ms QT Interval 362 ms QTC Interval 459 ms P [place] 40 degrees R AXIS (MCT) 8 degrees T Wave [place] -8 degrees [place] Diagnosis Normal sinus rhythm Normal ECG No previous ECGs available Glucose, Nova Meter Status: Abnormal Collection Time: 12/03/24 10:45 AM Result Value Ref Range POC-GLUCOSE 156 (H) 70 - 110 mg/dL Nurse Advisor [id number] ECG 12 lead Status: None (In process) Collection Time: 12/03/24 2:16 PM Result Value Ref Range VENTRICULAR RATE EKG/MIN 136 BPM ATRIAL RATE (MCT) 73 BPM QRS-INTERVAL (MSEC) 88 ms QT Interval 304 ms QTC Interval 457 ms R AXIS (MCT) -11 degrees T Wave [place] -58 degrees [place] Diagnosis Atrial fibrillation with rapid ventricular response Possible Anterolateral infarct , age undetermined Abnormal ECG When compared with ECG of 03-DEC-2024 10:39, Atrial fibrillation has replaced Sinus rhythm CT bone marrow biopsy Narrative: CT GUIDED BONE MARROW ASPIRATION AND CORE BIOPSY. HISTORY: Pancytopenia. ATTENDING RADIOLOGIST: Dr. Haseeb Gil. PHYSICIAN CHANNEL SALES DIRECTOR: Sandra Ramsey PA-C PROCEDURE: After informed consent [...] renal function - No emergent need of AUTOMOTIVE SALES ASSOCIATE - Monitor H/H and transfuse for Hgb less than 7.0 * Brandan Kerr, PT - 12/03/2024 2:16 PM EDT Images from the original note were not included. Inpatient Physical Therapy Attempt to Treat Patient Name: Mary Gar Birthday: 1960 Date of Attempt: 12/03/2024 Time: [id number]. Gathered subjective history from patient and assessed [...] Gar Admit Date: 11/30/2024 LOS: 3 days Location:[id number] PCP on file: [facility] Find-a-Doc Principal Problem: Anasarca ASSESSMENT [...] Dr. Law Cote on December 07 in [place], [place]. -No evidence of SBP -Continue Lactulose/Xifaxan [...] POC-GLUCOSE 112 (H) 70 - 110 mg/dL Nurse Advisor [phone] Glucose, Nova Meter Status: Abnormal Collection Time: 12/02/24 5:18 PM Result Value Ref Range POC-GLUCOSE 128 (H) 70 - 110 mg/dL Nurse Advisor [phone] Hemoglobin Status: Abnormal Collection Time: 12/02/24 6:03 PM Result Value Ref Range Hemoglobin 9.1 (L) 11.2 - 15.7 GM/DL Glucose, Nova Meter Status: Abnormal Collection Time: 12/02/24 8:06 PM Result Value Ref Range POC-GLUCOSE 144 (H) 70 - 110 mg/dL Nurse Advisor [id number] Hemoglobin Status: Abnormal Collection Time: 12/02/24 11:06 PM Result Value Ref Range Hemoglobin 8.9 (L) 11.2 - 15.7 GM/DL Glucose, Nova Meter Status: Abnormal Collection Time: 12/03/24 1:10 AM Result Value Ref Range POC-GLUCOSE 164 (H) 70 - 110 mg/dL Nurse Advisor [id number] Glucose, Nova Meter Status: Abnormal Collection Time: 12/03/24 1:12 AM Result Value Ref Range POC-GLUCOSE 168 (H) 70 - 110 mg/dL Nurse Advisor [id number] Glucose, Nova Meter Status: Abnormal Collection Time: 12/03/24 5:13 AM Result Value Ref Range POC-GLUCOSE 142 (H) 70 - 110 mg/dL Nurse Advisor [phone] Magnesium Status: Normal Collection Time: 12/03/24 7:39 [...] Value Units Date/Time CT bone marrow biopsy [[id number]] Collected: 12/02/24 1524 Order Status: Completed Updated: 12/02/24 1556 Narrative: CT GUIDED BONE MARROW ASPIRATION AND CORE BIOPSY. HISTORY: Pancytopenia. ATTENDING RADIOLOGIST: Dr. Haseeb Gil. PHYSICIAN CHANNEL SALES DIRECTOR: Sandra Ramsey PA-C PROCEDURE: After informed consent [...] Transcribed by Sandra Ramsey PA-C. Ultrasound liver [[id number]] Collected: 11/30/24 1643 Order Status: Completed Updated: 11/30/24 165 Narrative: CLINICAL INDICATION: Abdominal pain. Assess HCC [...] and dictated by SABINE Yang. US paracentesis [[id number]] Collected: 11/30/24 1637 Order Status: Completed Updated: 11/30/241654 Narrative: ULTRASOUND-GUIDED PARACENTESIS HISTORY: Ascites ATTENDING PHYSICIAN: Dr. Haseeb Gil PHYSICIAN CHANNEL SALES DIRECTOR: Gabriel Velasco PA-C FINDINGS: After informed consent [...] by Gabriel Velasco PA-C. Ultrasound renal limited [[id number]] Collected: 11/30/24 1646 Order Status: Completed Updated: [...] Ronnell Tom MD XR chest AP portable [[id number]] Collected: 11/30/24 1215 Order Status: Completed Updated: [...] AM Result Value Ref Range Issue Date/Time [id number] Product Identification Red Blood Cells Product Code [id number] Status Information Transfused Unit Number [id number] Blood Type 5100 Cross Match Results Compatible Glucose, Nova Meter Status: Abnormal Collection Time: 12/02/24 12:51 PM Result Value Ref Range POC-GLUCOSE 112 (H) 70 - 110 mg/dL Nurse Advisor [phone] Glucose, Nova Meter Status: Abnormal Collection Time: 12/02/24 5:18 PM Result Value Ref Range POC-GLUCOSE 128 (H) 70 - 110 mg/dL Nurse Advisor [phone] Hemoglobin Status: Abnormal Collection Time: 12/02/24 6:03 PM Result Value Ref Range Hemoglobin 9.1 (L) 11.2 - 15.7 GM/DL Glucose, Nova Meter Status: Abnormal Collection Time: 12/02/24 8:06 PM Result Value Ref Range POC-GLUCOSE 144 (H) 70 - 110 mg/dL Nurse Advisor [phone] Hemoglobin Status: Abnormal Collection Time: 12/02/24 11:06 PM Result Value Ref Range Hemoglobin 8.9 (L) 11.2 - 15.7 GM/DL Glucose, Nova Meter Status: Abnormal Collection Time: 12/03/24 1:10 AM Result Value Ref Range POC-GLUCOSE 164 (H) 70 - 110 mg/dL Nurse Advisor [phone] Glucose, Nova Meter Status: Abnormal Collection Time: 12/03/24 1:12 AM Result Value Ref Range POC-GLUCOSE 168 (H) 70 - 110 mg/dL Nurse Advisor [phone] Glucose, Nova Meter Status: Abnormal Collection Time: 12/03/24 5:13 AM Result Value Ref Range POC-GLUCOSE 142 (H) 70 - 110 mg/dL Nurse Advisor [id number] Magnesium Status: Normal Collection Time: 12/03/24 7:39 [...] Pancytopenia. ATTENDING RADIOLOGIST: Dr. Haseeb Gil. PHYSICIAN CHANNEL SALES DIRECTOR: Sandra Ramsey PA-C PROCEDURE: After informed consent [...] improvement and improvement in creatinine * Jalen Woodward, OTR/L - 12/03/2024 8:39 AM EDT Images from [...] BODY REMOVAL; Surgeon: Scott Daley MD; Location: [facility]; Service: Gastroenterology; Laterality: N/A; General [...] socks seated in chair. Pt participated with Arsh MCARTHUR. She tolerated session well this date. Assessment [...] summary. Electronically signed by DAWOOD Gaona/Amada - 12/03/2024 - 3:24 PM EDT * [...] in Afib w/RVR and c/o SOB. EP JUNIOR BOOKKEEPER notified.New orders taken. IV Amio 150mg bolus [...] BODY REMOVAL; Surgeon: Scott Daley MD; Location: [facility]; Service: Gastroenterology; Laterality: N/A; Allergies: [...] Component Value Date/Time NA 146 (H) 12/02/2024 033 K 4.2 12/02/2024 033 CL 118 (H) 12/02/2024337 CO2 19 (L) 12/02/2024337 BUN 55.1 (H) 12/02/2024337 CREATININE 3.55 (H) 12/02/2024337 Component Value Date/Time CALCIUM 7.9 (L) 12/02/2024 033 ALKPHOS 49 12/02/2024337 AST 32 12/02/2024337 ALT 8 12/02/2024 0338 BILITOT 0.9 12/02/2024 0338 Radiology Results (last 7 days) Procedure Component Value Units Date/Time CT bone marrow biopsy [[id number]] Collected: 12/02/24 1524 Order Status: Completed Updated: 12/02/241525 Narrative: CT GUIDED BONE MARROW ASPIRATION AND CORE BIOPSY. HISTORY: Pancytopenia. ATTENDING RADIOLOGIST: Dr. Haseeb Gil. PHYSICIAN CHANNEL SALES DIRECTOR: Sandra Ramsey PA-C PROCEDURE: After informed consent [...] by Sandra Ramsey PA-C. Ultrasound renal limited [[id number]] Collected: 11/30/241645 Order Status: Completed Updated: 11/30/241648 [...] dictated by Ronnell Tom MD Ultrasound liver [[id number]] Collected: 11/30/24 164 Order Status: Completed Updated: [...] and dictated by SABINE Yang. US paracentesis [[id number]] Collected: 11/30/24 1637 Order Status: Completed Updated: 11/30/241654 Narrative: ULTRASOUND-GUIDED PARACENTESIS HISTORY: Ascites ATTENDING PHYSICIAN: Dr. Haseeb Gil PHYSICIAN CHANNEL SALES DIRECTOR: Gabriel Velasco PA-C FINDINGS: After informed consent [...] Gabriel Velasco PA-C. XR chest AP portable [[id number]] Collected: 11/30/24 1215 Order Status: Completed Updated: [...] by Marielos Sotelo PA-C. US renal complete [[id number]] Order Status: Canceled Assessment Pancytopenia. She had [...] 12/02/2024 - 3:32 PM EDT * Destiney Llanes APRN - 12/02/2024 10:15 AM EDT Name: Mary Gar Admit Date: 11/30/2024 LOS: 2 days Location:[address] [place] [address] PCP on file: [facility] Find-a-Doc Principal Problem: Anasarca ASSESSMENT [...] Range POC-GLUCOSE 100 70 - 110 mg/dL Nurse Advisor [phone] Hemoglobin Status: Abnormal Collection Time: 12/01/24 3:33 PM Result Value Ref Range Hemoglobin 8.0 (L) 11.2 - 15.7 GM/DL Glucose, Nova Meter Status: Abnormal Collection Time: 12/01/24 4:25 PM Result Value Ref Range POC-GLUCOSE 115 (H) 70 - 110 mg/dL Nurse Advisor [phone] Glucose, Nova Meter Status: Abnormal Collection Time: 12/01/24 7:34 PM Result Value Ref Range POC-GLUCOSE 128 (H) 70 - 110 mg/dL Nurse Advisor [id number] Hemoglobin Status: Abnormal Collection Time: 12/02/24 12:04 [...] POC-GLUCOSE 115 (H) 70 - 110 mg/dL Nurse Advisor [phone] Hemoglobin Status: Abnormal Collection Time: 12/02/24 7:40 [...] Product Identification Red Blood Cells Product Code [id number] Status Information Ready for issue Unit Number [id number] Blood Type 5100 Cross Match Results Compatible Radiology Results (last 3 days) Procedure Component Value Units Date/Time Ultrasound liver [[id number]] Collected: 11/30/24 1643 Order Status: Completed Updated: [...] and dictated by SABINE Yang. US paracentesis [[id number]] Collected: 11/30/24 1637 Order Status: Completed Updated: 11/30/241654 Narrative: ULTRASOUND-GUIDED PARACENTESIS HISTORY: Ascites ATTENDING PHYSICIAN: Dr. Haseeb Gil PHYSICIAN CHANNEL SALES DIRECTOR: Gabriel Velasco PA-C FINDINGS: After informed consent [...] by Gabriel Velasco PA-C. Ultrasound renal limited [[id number]] Collected: 11/30/24 1646 Order Status: Completed Updated: 11/30/249 Narrative: RENAL ULTRASOUND HISTORY: Renal failure PROCEDURE: [...] Ronnell Tom MD XR chest AP portable [[id number]] Collected: 11/30/24 1215 Order Status: Completed Updated: [...] Ext: +++ Pedal edema , no cyanosis SYSTEM ARCHIVE ANALYST: Alert, No focal deficit noted grossly Psy: Cooperative Labs: Results for orders placed or performed during the hospital encounter of 11/30/24 (from the past 24 hours) Glucose, Nova Meter Status: None Collection Time: 12/01/24 10:32 AM Result Value Ref Range POC-GLUCOSE 100 70 - 110 mg/dL Nurse Advisor [id number] Hemoglobin Status: Abnormal Collection Time: 12/01/24 3:33 PM Result Value Ref Range Hemoglobin 8.0 (L) 11.2 - 15.7 GM/DL Glucose, Nova Meter Status: Abnormal Collection Time: 12/01/24 4:25 PM Result Value Ref Range POC-GLUCOSE 115 (H) 70 - 110 mg/dL Nurse Advisor [phone] Glucose, Nova Meter Status: Abnormal Collection Time: 12/01/24 7:34 PM Result Value Ref Range POC-GLUCOSE 128 (H) 70 - 110 mg/dL Nurse Advisor [id number] Hemoglobin Status: Abnormal Collection Time: 12/02/24 12:04 [...] POC-GLUCOSE 115 (H) 70 - 110 mg/dL Nurse Advisor [id number] Hemoglobin Status: Abnormal Collection Time: 12/02/24 7:40 [...] Ascites ATTENDING PHYSICIAN: Dr. Haseeb Gil PHYSICIAN CHANNEL SALES DIRECTOR: Gabriel Velasco PA-C FINDINGS: After informed consent [...] 1960 Age: 64 year(s) Corporate ID Number: [id number] Gender Female Industrial Training Specialist: Giovanna Rock Height: 67 inches [facility] Referring Physician: HUEY HURTADO Weight: 225 pounds Interpreting JESSICA RAYMOND MD BMI: 35.24 kg/m^2 Physician: Date of Service: 11/30/2024 Blood Pressure: 118/59 mmHg Room Number: 579 Type of Study: TTE procedure: ECHO COMPLETE (DOPPLER / COLOR) W OR WO CONTRAST. Patient Status: Routine IP [facility] History/Tech Notes: Indication: [...] 1.35 m/s E/A ratio: 0.97 m/s Volume yfbxakxio492.99 LV length: 8.51 cm ml Volume oiroevfs67.96 ml LVOT diameter: 1.79 cm Normal sized [...] Valve TR velocity: 2.51 m/s TR gradient: 25.88231 mmHg Estimated RAP: 3 mmHg RVSP: 28.12 [...] subcostal imaging. Recent Labs Lab(s) Units 12/02/24 0799 12/02/24 1447 12/02/24 0338 12/02/24 0004 12/01/24 1934 12/01/24 [...] Intake/Output Summary (Last 24 hours) at 12/02/2024 0922 Last data filed at 12/01/2024 1103 Gross [...] renal function - No emergent need of AUTOMOTIVE SALES ASSOCIATE - Monitor H/H and transfuse for Hgb [...] Range POC-GLUCOSE 100 70 - 110 mg/dL Nurse Advisor [id number] Hemoglobin Status: Abnormal Collection Time: 12/01/24 3:33 PM Result Value Ref Range Hemoglobin 8.0 (L) 11.2 - 15.7 GM/DL Glucose, Nova Meter Status: Abnormal Collection Time: 12/01/24 4:25 PM Result Value Ref Range POC-GLUCOSE 115 (H) 70 - 110 mg/dL Nurse Advisor [id number] Glucose, Nova Meter Status: Abnormal Collection Time: 12/01/24 7:34 PM Result Value Ref Range POC-GLUCOSE 128 (H) 70 - 110 mg/dL Nurse Advisor [id number] Hemoglobin Status: Abnormal Collection Time: 12/02/24 12:04 [...] POC-GLUCOSE 115 (H) 70 - 110 mg/dL Nurse Advisor [id number] Hemoglobin Status: Abnormal Collection Time: 12/02/24 7:40 [...] Ascites ATTENDING PHYSICIAN: Dr. Haseeb Gil PHYSICIAN CHANNEL SALES DIRECTOR: Gabriel Velasco PA-C FINDINGS: After informed consent [...] 1960 Age: 64 year(s) Corporate ID Number: [id number] Gender Female Industrial Training Specialist: Giovanna Rock Height: 67 inches [facility] Referring Physician: HUEY HURTADO Weight: [...] 1.35 m/s E/A ratio: 0.97 m/s Volume aqvomnpnj050.99 LV length: 8.51 cm ml Volume ucrjerwe49.96 ml LVOT diameter: 1.79 cm Normal sized [...] Valve TR velocity: 2.51 m/s TR gradient: 25.37585 mmHg Estimated RAP: 3 mmHg RVSP: 28.12 [...] BODY REMOVAL; Surgeon: Scott Daley MD; Location: [facility]; Service: Gastroenterology; Laterality: N/A; Allergies: [...] 116 (H) 12/01/2024 0405 CO2 20 (L) 12/01/2024 0405 BUN 68.3 (H) 12/01/2024 0405 CREATININE 4.13 (H) 12/01/2024 0405 Component Value Date/Time CALCIUM 8.0 (L) 12/01/2024 0405 ALKPHOS 61 12/01/2024 0405 AST 26 12/01/2024 0405 ALT 15 12/01/2024 0405 BILITOT 0.5 12/01/2024 0405 Radiology Results (last 7 days) Procedure Component Value Units Date/Time Ultrasound renal limited [[id number]] Collected: 11/30/241645 Order Status: Completed Updated: 11/30/241648 [...] dictated by Ronnell Tom MD Ultrasound liver [[id number]] Collected: 11/30/24 1643 Order Status: Completed Updated: [...] and dictated by SABINE Yang. US paracentesis [[id number]] Collected: 11/30/24 1637 Order Status: Completed Updated: 11/30/241654 Narrative: ULTRASOUND-GUIDED PARACENTESIS HISTORY: Ascites ATTENDING PHYSICIAN: Dr. Haseeb Gil PHYSICIAN CHANNEL SALES DIRECTOR: Gabriel Velasco PA-C FINDINGS: After informed consent [...] Gabriel Velasco PA-C. XR chest AP portable [[id number]] Collected: 11/30/24 1215 Order Status: Completed Updated: [...] by Marielos Sotelo PA-C. US renal complete [[id number]] Order Status: Canceled Assessment Pancytopenia. White blood [...] Range POC-GLUCOSE 102 70 - 110 mg/dL Nurse Advisor [id number] Urinalysis, Reflex Microscopic and Culture If Indicated Status: Abnormal Collection Time: 11/30/24 11:35 AM Result Value Ref Range Color, UA Light Yellow Clarity, UA Turbid (A) Clear Specific [place], UA 1.011 1.005 - 1.030 pH, UA [...] Range POC-GLUCOSE 107 70 - 110 mg/dL Nurse Advisor [id number] Glucose, Nova Meter Status: None Collection Time: 11/30/24 7:38 PM Result Value Ref Range POC-GLUCOSE 106 70 - 110 mg/dL Nurse Advisor [id number] Magnesium Status: Abnormal Collection Time: 12/01/24 4:05 [...] AM Result Value Ref Range Issue Date/Time [id number] Product Identification Red Blood Cells Product Code [id number] Status Information Transfused Unit Number [id number] Blood Type 5100 Cross Match Results Compatible Glucose, Nova Meter Status: None Collection Time: 12/01/24 5:37 AM Result Value Ref Range POC-GLUCOSE 107 70 - 110 mg/dL Nurse Advisor [id number] Type and Screen Status: None (Preliminary result) Collection Time: 12/01/24 7:08 AM Result Value Ref Range ABO/Rh O Positive Antibody Screen Negative Glucose, Nova Meter Status: None Collection Time: 12/01/24 8:12 AM Result Value Ref Range POC-GLUCOSE 103 70 - 110 mg/dL Nurse Advisor [id number] Ultrasound liver Narrative: CLINICAL INDICATION: Abdominal pain. [...] Ascites ATTENDING PHYSICIAN: Dr. Haseeb Gil PHYSICIAN CHANNEL SALES DIRECTOR: Gabriel Velasco PA-C FINDINGS: After informed consent [...] 1960 Age: 64 year(s) Corporate ID Number: [id number] Gender Female Industrial Training Specialist: Giovanna Pranav Height: 67 inches [facility] Referring Physician: HUEY HURTADO Weight: 225 pounds Interpreting JESSICA RAYMOND MD BMI: 35.24 kg/m^2 Physician: Date of Service: 11/30/2024 Blood Pressure: 118/59 mmHg Room Number: 579 Type of Study: TTE procedure: ECHO COMPLETE (DOPPLER / COLOR) W OR WO CONTRAST. Patient Status: Routine IP [facility] History/Tech Notes: Indication: [...] 1.35 m/s E/A ratio: 0.97 m/s Volume ghykkirkl776.99 LV length: 8.51 cm ml Volume anwvatgz47.96 ml LVOT diameter: 1.79 cm Normal sized [...] Valve TR velocity: 2.51 m/s TR gradient: 25.15737 mmHg Estimated RAP: 3 mmHg RVSP: 28.12 [...] Ext: +++ Pedal edema , no cyanosis SYSTEM ARCHIVE ANALYST: Alert, No focal deficit noted grossly Psy: Cooperative Labs: Results for orders placed or performed during the hospital encounter of 11/30/24 (from the past 24 hours) Glucose, Nova Meter Status: None Collection Time: 11/30/24 10:46 AM Result Value Ref Range POC-GLUCOSE 102 70 - 110 mg/dL Nurse Advisor [id number] Urinalysis, Reflex Microscopic and Culture If Indicated Status: Abnormal Collection Time: 11/30/24 11:35 AM Result Value Ref Range Color, UA Light Yellow Clarity, UA Turbid (A) Clear Specific [place], UA 1.011 1.005 - 1.030 pH, UA [...] Range POC-GLUCOSE 107 70 - 110 mg/dL Nurse Advisor [id number] Glucose, Nova Meter Status: None Collection Time: 11/30/24 7:38 PM Result Value Ref Range POC-GLUCOSE 106 70 - 110 mg/dL Nurse Advisor [phone] Magnesium Status: Abnormal Collection Time: 12/01/24 4:05 [...] AM Result Value Ref Range Issue Date/Time [id number] Product Identification Red Blood Cells Product Code [id number] Status Information Transfused Unit Number [id number] Blood Type 5100 Cross Match Results Compatible Glucose, Nova Meter Status: None Collection Time: 12/01/24 5:37 AM Result Value Ref Range POC-GLUCOSE 107 70 - 110 mg/dL Nurse Advisor [id number] Type and Screen Status: None (Preliminary result) Collection Time: 12/01/24 7:08 AM Result Value Ref Range ABO/Rh O Positive Antibody Screen Negative Glucose, Nova Meter Status: None Collection Time: 12/01/24 8:12 AM Result Value Ref Range POC-GLUCOSE 103 70 - 110 mg/dL Nurse Advisor [id number] Ultrasound liver Narrative: CLINICAL INDICATION: Abdominal pain. [...] Ascites ATTENDING PHYSICIAN: Dr. Haseeb Gil PHYSICIAN CHANNEL SALES DIRECTOR: Gabriel Velasco PA-C FINDINGS: After informed consent [...] 1960 Age: 64 year(s) Corporate ID Number: [id number] Gender Female Industrial Training Specialist: Giovanna Rock Height: 67 inches [facility] Referring Physician: HUEY HURTADO Weight: [...] 1.35 m/s E/A ratio: 0.97 m/s Volume dynaeyliw493.99 LV length: 8.51 cm ml Volume exzdgurq88.96 ml LVOT diameter: 1.79 cm Normal sized [...] Valve TR velocity: 2.51 m/s TR gradient: 25.12719 mmHg Estimated RAP: 3 mmHg RVSP: 28.12 [...] renal function - No emergent need of AUTOMOTIVE SALES ASSOCIATE - Monitor H/H and transfuse for Hgb [...] The patient's fine motor coordination is intact. Vqxqfe-nq-fagd: LUE (3) Minimal Impairment: Able to accomplish [...] in chair, to don socks Outcome Measures [facility] Daily Living Functional Assessment How much help [...] (Minimal/Contact guard/Supervision/Setup) 4=None (Modified independent/Independent) The patient's [facility] raw score is 16. The patient currently has 53.32% functional impairment. Clinicians are most likely to recommend inpatient/SNF/shelter care for patients with scores between 6-17, [...] summary. Electronically signed by NBA Gaona - 11/30/2024 - 3:21 PM EDT OT [...] diabetes, CKD, CAD, arthritis. Patient presented to [facility] with swollen abdomen, abdominal discomfort and bilateral lower extremity pitting edema.Patient's BUN/creatinine elevated, and patient subsequently transferred to [facility] for hepatorenal syndrome evaluation. Admits to [...] days. Patient's niece forced patient to visit [facility] emergency room today she really [...] hyperlipidemia, diabetes, CAD, arthritis. Patient presented to [facility] with swollen abdomen, abdominal discomfort and bilateral lower extremity pitting edema. Patient diagnosed with anasarca, and admitted for hepatorenal/temporary dialysis evaluation. Problems as listed below: [facility] labs reviewed prior to current [...] mg IV every 12. CT abdomen/pelvis from [facility] shows ascites. Therefore ordered paracentesis [...] history as below. She initially presented to [facility] with swollen abdomen, abdominal discomfort, and bilateral lower extremity pain. Her creatinine was elevated and as a result, she was transferred to [facility] for he patorenal syndrome. Upon arrival here, [...] BODY REMOVAL; Surgeon: Scott Daley MD; Location: [facility]; Service: Gastroenterology; Laterality: N/A; Allergies: [...] POC-GLUCOSE 134 (H) 70 - 110 mg/dL Nurse Advisor [id number] Glucose, Nova Meter Status: Abnormal Collection Time: 12/06/24 7:26 PM Result Value Ref Range POC-GLUCOSE 170 (H) 70 - 110 mg/dL Nurse Advisor [id number] CBC - Hemogram (-BKR) Status: Abnormal Collection [...] POC-GLUCOSE 159 (H) 70 - 110 mg/dL Nurse Advisor [id number] ECG 12 lead Status: None (In process) Collection Time: 12/07/24 10:29 AM Result Value Ref Range VENTRICULAR RATE EKG/MIN 91 BPM ATRIAL RATE (MCT) 91 BPM [place] Interval 142 ms QRS-INTERVAL (MSEC) 88 ms QT Interval 376 ms QTC Interval 462 ms P [place] 39 degrees R AXIS (MCT) -3 degrees T Wave [place] 4 degrees [place] Diagnosis Normal sinus rhythm Nonspecific T wave [...] 12.0 - 18.0 g/dL PaO2/FIO2 calculated 203.0 [facility] COLLECTION SITE Right Radial Arterial Puncture Yes Blood Gas PT Temperature C 37.0 Sen's Test Acceptable Critical Values Notification Critical Blood gas called to TRAY LORENZ RN . [place] [id number] and confirmed on 12/07/2024 10:51 ABG Number of Draw Attempts 1 FIO2 21.0 Blood Gas Temperature Corrected Results No No Glucose, Nova Meter Status: Abnormal Collection Time: 12/07/24 10:54 AM Result Value Ref Range POC-GLUCOSE 146 (H) 70 - 110 mg/dL Nurse Advisor [id number] Radiology Radiology Results (last day) Procedure Component Value Units Date/Time XR chest AP portable [[id number]] Resulted: 12/07/24 1353 Order Status: Sent Updated: 12/07/24 1426 Microbiology: Microbiology Results (last 7 days) Procedure Component Value Units Date/Time Anaerobic Culture [[id number]] Collected: 11/30/24 1603 Order Status: Completed Specimen: Peritoneal Fluid from Body Fluid Updated: 12/05/24 0634 Result No Anaerobic growth Narrative: Specimen Description: peritoneal fluid Blood Culture [[id number]] Collected: 11/30/24 0340 Order Status: Completed Specimen: Blood from Arm, Left Updated: 12/05/24 0501 Result No growth in 5 days Blood Culture [[id number]] Collected: 11/30/24 0342 Order Status: Completed Specimen: Blood from Arm, Right Updated: 12/05/24 0501 Result No growth in 5 days Body Fluid Culture + Gram Stain [[id number]] Collected: 11/30/24 1603 Order Status: Completed Specimen: Peritoneal Fluid from Body Fluid Updated: 12/03/24 0907 Result No growth Gram Stain Result No organisms seen No cells seen Narrative: Specimen Description: peritoneal fluid Body Fluid/CSF - Path Review () [[id number]] Collected: 11/30/24 1603 Order Status: Completed Specimen: Peritoneal Fluid from Body Fluid Updated: 12/03/24 0654 SENT TO PATHOLOGY FOR REVIEW Yes Scan Result Mesothelial cells. MD German 12/02/2024 AFB Culture And Stain [[id number]] Collected: 11/30/24 1603 Order Status: Completed Specimen: Peritoneal Fluid from Body Fluid Updated: 12/01/24 1410 AFB Smear No acid fast bacilli seen Narrative: Specimen Description: peritoneal fluid Glucose, body fluid [[id number]] Collected: 11/30/24 1603 Order Status: Completed Specimen: Body Fluid from Peritoneal Fluid Updated: 12/01/24709 Glucose, Body Fluid 107 mg/dL BODY FLUID TYPE Peritoneal Narrative: This test has been modified from the automotive accessory installer's instructions and its performance characteristics were determined by the laboratory. The reference intervals and other method performance specifications are unavailable for this test. It is recommended to interpret body fluid concentrations in comparison with the corresponding serum or plasma concentrations and to integrate test results into the clinical context. Protein, body fluid [[id number]] Collected: 11/30/241602 Order Status: Completed Specimen: Body Fluid from Peritoneal Fluid Updated: 12/01/24709 Protein, Fluid 1.9 g/dL BODY FLUID TYPE Peritoneal Narrative: This test has been modified from the automotive accessory installer's instructions and its performance characteristics were determined by the laboratory. The reference intervals and other method performance specifications are unavailable for this test. It is recommended to interpret body fluid concentrations in comparison with the corresponding serum or plasma concentrations and to integrate test results into the clinical context. Urine Culture [[id number]] Collected: 11/30/24 1135 Order Status: Completed Specimen: Urine, Clean Catch Updated: 12/01/24648 Result Recollect Specimen - 3 or more organisms suggests contamination Body fluid cell count with differential [[id number]] (Abnormal) Collected: 11/30/241602 Order Status: Completed Specimen: [...] fluids are not defined. DIFFERENTIAL, BODY FLUID [[id number]] Collected: 11/30/241602 Order Status: Completed Specimen: Peritoneal Fluid from Body Fluid Updated: 11/30/242048 Neutrophils Fluid 5 % Lymphocytes Fluid 46 % Unidentified Mononuclear Cells BF 49 % Lactate dehydrogenase (LDH), body fluid [[id number]] Collected: 11/30/241602 Order Status: Completed Specimen: Peritoneal Fluid from Body Fluid Updated: 11/30/24 1819 LDH, Fluid 71 U/L BODY FLUID TYPE Peritoneal Narrative: This test has been modified from the automotive accessory installer's instructions and its performance characteristics were determined by the laboratory. The reference intervals and other method performance specifications are unavailable for this test. It is recommended to interpret body fluid concentrations in comparison with the corresponding serum or plasma concentrations and to integrate test results into the clinical context. Fungus Culture W/ROSA MARIA Or Nimisha Ink [[id number]] Collected: 11/30/24 160 Order Status: Completed Specimen: Peritoneal Fluid from Body Fluid Updated: 11/30/24 1754 ROSA MARIA Prep No fungal elements seen Narrative: Specimen Description: peritoneal fluid Total Protein, Body Fluid(SENDOUT) [[id number]] Collected: 11/30/24 160 Order Status: Canceled Specimen: Peritoneal Fluid from Body Fluid Updated: 11/30/24 1634 Glucose Body Fluid(SENDOUT) [[id number]] Collected: 11/30/24 160 Order Status: Canceled Specimen: [...] to continue with albumin/diuretics no indication for AUTOMOTIVE SALES ASSOCIATE BIPAP 14/8 Fio2 50%,ABG in 2 hrs [...] personally evaluated the patient and performed a ikru-uz-yrff diagnostic evaluation on this patient; I have reviewed history, performed physical examination, reviewed laboratory studies. , andreviewed images independent of radiologist. I have actively directed the medical care, formulated assessemnt and plan of care. Patient requires a high complexity of decision making for assessment. 46 minutes pulmonary care clinical time was spent. Voice balloon pilot technology ([employer]) is used for dictation of this note and sound-alike words might be erroneously placed despite reviewing the note for accuracy.Errors in dictation may reflect use of voice recognition software and not all errors in balloon pilot may have been detectedprior to signing * KENNEY Zaragoza - 12/07/2024 10:29 AM EDTAssociated Order(s): IP CONSULT TO CARE COORDINATION Summary: Pending SNF/Rehab Discharge Plan Progress Note [facility] can offer bed for patient, semi-private room. Address: [facility] [place] [address] - about 56 minutes (36 miles) from patient's address. [facility] started precert, 12/07, 10:33. Insurance will require updated PT/OT notes for rehab. Other SNF options: [facility] (over an hour away from home address), [facility], [facility]. Sister is requesting rehab. On [...] Patient transferring to ICU. 2:23 pm - JOSE MANUEL/MANGO attempted to call patient's sister/caregiver however, JOSE MANUEL/CM experiencing phone issues at this time. Caregiver believes patient is being DC. CM unable to communicate patient being transferred to ICU and asked bedside RN to communicate with sister/caregiver. KENNEY Zaragoza * KENNEY Zaragoza - 12/06/2024 10:14 AM EDTAssociated Order(s): IP CONSULT TO CARE COORDINATION Summary: CM/CC Consult Discharge Plan Progress Note CM/CC Consulted for SNF placement. JOSE MANUEL/MANGO sent referrals within 50 miles of patient's home address. No accepting facilities or bed offers at this time. Attempted to call Jojo da silva at phone # [phone], received busy tone, unable to reach sister at this time. Patient will need a precert. KENNEY Zaragoza * Rea Bishop RD - 12/06/2024 9:[address] ADIME [...] intakes reported. Pt states she ate well station captain but hasn't had much of an appetite for past 4 days. Requested chicken noodle soup for lunch. Agreeable to ONS TID. Past Medical/Surgical History: Past Medical History: Diagnosis Date Cirrhosis, non-alcoholic (HCC) Diabetes mellitus (HCC) Hypertension Past Surgical History: Procedure Laterality Date ESOPHAGOGASTRODUODENOSCOPY (EGD),REMOVAL FOREIGN BODY N/A 12/01/2024 Procedure: EGD, WITH FOREIGN BODY REMOVAL; Surgeon: Scott Daley MD; Location: [facility]; Service: Gastroenterology; Laterality: N/A; Vitals [...] g 25 g intravenous Q15 Min PRN Heuy Hurtado MD ergocalciferol (DRISDOL) capsule 50,000 Units [...] % infusion 20 mL/hr intravenous Once Denilson Osheajanay, DO sodium chloride flush 10 mL 10 [...] with severity: none Energy intake hx: good station captain (minimal for past 3-4 days) Wt [...] history as below. She initially presented to [facility] with swollen abdomen, abdominal discomfort, and bilateral lower extremity pain. Her creatinine was elevated and as a result, she was transferred to [facility] for he patorenal syndrome. Upon arrival here, [...] BODY REMOVAL; Surgeon: Scott Daley MD; Location: [facility]; Service: Gastroenterology; Laterality: N/A; Allergies: [...] POC-GLUCOSE 128 (H) 70 - 110 mg/dL Nurse Advisor [id number] Hemoglobin Status: Abnormal Collection Time: 12/02/24 6:03 PM Result Value Ref Range Hemoglobin 9.1 (L) 11.2 - 15.7 GM/DL Glucose, Nova Meter Status: Abnormal Collection Time: 12/02/24 8:06 PM Result Value Ref Range POC-GLUCOSE 144 (H) 70 - 110 mg/dL Nurse Advisor [id number] Hemoglobin Status: Abnormal Collection Time: 12/02/24 11:06 PM Result Value Ref Range Hemoglobin 8.9 (L) 11.2 - 15.7 GM/DL Glucose, Nova Meter Status: Abnormal Collection Time: 12/03/24 1:10 AM Result Value Ref Range POC-GLUCOSE 164 (H) 70 - 110 mg/dL Nurse Advisor [id number] Glucose, Nova Meter Status: Abnormal Collection Time: 12/03/24 1:12 AM Result Value Ref Range POC-GLUCOSE 168 (H) 70 - 110 mg/dL Nurse Advisor [phone] Glucose, Nova Meter Status: Abnormal Collection Time: 12/03/24 5:13 AM Result Value Ref Range POC-GLUCOSE 142 (H) 70 - 110 mg/dL Nurse Advisor [id number] Magnesium Status: Normal Collection Time: 12/03/24 7:39 [...] 97 BPM ATRIAL RATE (MCT) 97 BPM IL Interval 150 ms QRS-INTERVAL (MSEC) 88 ms QT Interval 362 ms QTC Interval 459 ms P [place] 40 degrees R AXIS (MCT) 8 degrees T Wave [place] -8 degrees [place] Diagnosis Normal sinus rhythm Normal ECG No previous ECGs available Glucose, Nova Meter Status: Abnormal Collection Time: 12/03/24 10:45 AM Result Value Ref Range POC-GLUCOSE 156 (H) 70 - 110 mg/dL Nurse Advisor [id number] ECG 12 lead Status: None (In process) Collection Time: 12/03/24 2:16 PM Result Value Ref Range VENTRICULAR RATE EKG/MIN 136 BPM ATRIAL RATE (MCT) 73 BPM QRS-INTERVAL (MSEC) 88 ms QT Interval 304 ms QTC Interval 457 ms R AXIS (MCT) -11 degrees T Wave [place] -58 degrees [place] Diagnosis Atrial fibrillation with rapid ventricular response Possible Anterolateral infarct , age undetermined Abnormal ECG When compared with ECG of 03-DEC-2024 10:39, Atrial fibrillation has replaced Sinus rhythm Radiology Radiology Results (last day) Procedure Component Value Units Date/Time CT bone marrow biopsy [[id number]] Collected: 12/02/24 8523 Order Status: Completed Updated: 12/02/24 4421 Narrative: CT GUIDED BONE MARROW ASPIRATION AND CORE BIOPSY. HISTORY: Pancytopenia. ATTENDING RADIOLOGIST: Dr. Haseeb Gil. PHYSICIAN CHANNEL SALES DIRECTOR: Sandra Ramsey PA-C PROCEDURE: After informed consent [...] Date/Time Body Fluid Culture + Gram Stain [[id number]] Collected: 11/30/24 1603 Order Status: Completed Specimen: Peritoneal Fluid from Body Fluid Updated: 12/03/24 0907 Result No growth Gram Stain Result No organisms seen No cells seen Narrative: Specimen Description: peritoneal fluid Anaerobic Culture [[id number]] Collected: 11/30/24 1603 Order Status: Completed Specimen: Peritoneal Fluid from Body Fluid Updated: 12/03/24 0842 Result No Anaerobic growth Narrative: Specimen Description: peritoneal fluid Body Fluid/CSF - Path Review () [[id number]] Collected: 11/30/24 1603 Order Status: Completed Specimen: Peritoneal Fluid from Body Fluid Updated: 12/03/24 0654 SENT TO PATHOLOGY FOR REVIEW Yes Scan Result Mesothelial cells. MD German 12/02/2024 Blood Culture [[id number]] Collected: 11/30/24 0340 Order Status: Completed Specimen: Blood from Arm, Left Updated: 12/03/24 0501 Result No growth in 3 days Blood Culture [[id number]] Collected: 11/30/24 0342 Order Status: Completed Specimen: Blood from Arm, Right Updated: 12/03/24 0501 Result No growth in 3 days AFB Culture And Stain [[id number]] Collected: 11/30/24 1603 Order Status: Completed Specimen: Peritoneal Fluid from Body Fluid Updated: 12/01/24 1410 AFB Smear No acid fast bacilli seen Narrative: Specimen Description: peritoneal fluid Glucose, body fluid [[id number]] Collected: 11/30/24 1603 Order Status: Completed Specimen: Body Fluid from Peritoneal Fluid Updated: 12/01/24 0710 Glucose, Body Fluid 107 mg/dL BODY FLUID TYPE Peritoneal Narrative: This test has been modified from the automotive accessory installer's instructions and its performance characteristics were determined by the laboratory. The reference intervals and other method performance specifications are unavailable for this test. It is recommended to interpret body fluid concentrations in comparison with the corresponding serum or plasma concentrations and to integrate test results into the clinical context. Protein, body fluid [[id number]] Collected: 11/30/241602 Order Status: Completed Specimen: Body Fluid from Peritoneal Fluid Updated: 12/01/24 0710 Protein, Fluid 1.9 g/dL BODY FLUID TYPE Peritoneal Narrative: This test has been modified from the automotive accessory installer's instructions and its performance characteristics were determined by the laboratory. The reference intervals and other method performance specifications are unavailable for this test. It is recommended to interpret body fluid concentrations in comparison with the corresponding serum or plasma concentrations and to integrate test results into the clinical context. Urine Culture [[id number]] Collected: 11/30/24 1135 Order Status: Completed Specimen: Urine, Clean Catch Updated: 12/01/24 0649 Result Recollect Specimen - 3 or more organisms suggests contamination Body fluid cell count with differential [[id number]] (Abnormal) Collected: 11/30/24 160 Order Status: Completed Specimen: [...] fluids are not defined. DIFFERENTIAL, BODY FLUID [[id number]] Collected: 11/30/24 160 Order Status: Completed Specimen: Peritoneal Fluid from Body Fluid Updated: 11/30/24 2049 Neutrophils Fluid 5 % Lymphocytes Fluid 46 % Unidentified Mononuclear Cells BF 49 % Lactate dehydrogenase (LDH), body fluid [[id number]] Collected: 11/30/24 1603 Order Status: Completed Specimen: Peritoneal Fluid from Body Fluid Updated: 11/30/24 1819 LDH, Fluid 71 U/L BODY FLUID TYPE Peritoneal Narrative: This test has been modified from the automotive accessory installer's instructions and its performance characteristics were determined by the laboratory. The reference intervals and other method performance specifications are unavailable for this test. It is recommended to interpret body fluid concentrations in comparison with the corresponding serum or plasma concentrations and to integrate test results into the clinical context. Fungus Culture W/ROSA MARIA Or Nimisha Ink [[id number]] Collected: 11/30/24 1603 Order Status: Completed Specimen: Peritoneal Fluid from Body Fluid Updated: 11/30/24 1754 ROSA MARIA Prep No fungal elements seen Narrative: Specimen Description: peritoneal fluid Total Protein, Body Fluid(SENDOUT) [[id number]] Collected: 11/30/24 160 Order Status: Canceled Specimen: Peritoneal Fluid from Body Fluid Updated: 11/30/24 1634 Glucose Body Fluid(SENDOUT) [[id number]] Collected: 11/30/24 160 Order Status: Canceled Specimen: Peritoneal Fluid from Body Fluid Updated: 11/30/24 1634 Urine Culture [[id number]] Collected: 11/30/24 1135 Order Status: Canceled Specimen: [...] and lisinopril. Per nephrology there is no AUTOMOTIVE SALES ASSOCIATE indication at this time. Ultrasound renal on [...] multidisciplinary team including nurse practitioner, nurse, RT, breeder hen service technician, pharmacist, and case management during multidisciplinary round. I Dr.Hazim Jeramy MD, have personally evaluated the patient and performed a rkye-qv-ldow diagnostic evaluation on this patient; I have Obtained history, performed physical examination, reviewed laboratory studies. I have reviewed images independent of radiologist. I have actively directed the medical care, formulated diagnosis, and the plan of care. Patient requires a high complexity of decision making for assessment. Voice balloon pilot technology ([employer]) is used for dictation of this note and sound-alike words might be erroneously placed despite reviewing the note for accuracy. Errors in dictation may reflect use of voice recognition software and not all errors in balloon pilot may have been detected prior to signing. It may contain errors and words that were not intended to be used. Please contact the provider for errors or clarifications. * Deysi Foss MD - 12/03/2024 11:11 AM EDTAssociated Order(s): FS_MODEL_IP IP CONSULT TO ELECTROPHYSIOLOGY EP Consult Note Patient Name: Mary Gar Admission Date: 11/30/2024 Primary Care Provider: [facility] Find-a-Doc Chief Complaint/Reason for Consult: No chief complaint on file. History of Present Illness: Mary Gar is a 64 y.o. female, admitted on: 11/30/2024 1:43 AM. presented to [facility] with swollen abdomen, abdominal discomfort and bilateral lower extremity pitting edema. Patient's BUN/creatinine elevated, and patient subsequently transferred to [facility] for hepatorenal syndrome evaluation. Admits to [...] oral Every Night 20 mg at 12/02/24 210 cefTRIAXone 2 g intravenous Q24H ergocalciferol 50,000 [...] Units 0-18 Units subcutaneous 4x Daily AC Heuy Hurtado MD 3 Units at 12/03/24 0650 [...] Culture And Stain AFB Culture And Stain [facility] Non-Supervisor Cytology [facility] Non-Supervisor Cytology DIFFERENTIAL, BODY FLUID DIFFERENTIAL,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 LAB BLOOD ORDERABLES Final Resul t [facility] [address] [phone] * (ABNORMAL) CBC with automated diff (12/12/2024 3:47 AM EDT) Pathologist [facility] WBC 1.4(LL) 4.0 - 10.0 K/ L 12/12/2024 6:07 AM EDT [facility] RBC 2.39(L) 3.93 - 5.22 M/ L 12/12/2024 6:07 AM EDT [facility] Hemoglobin 7.3(L) 11.2 - 15.7 GM/DL 12/12/2024 6:07 AM EDT [facility] Hematocrit 23.2(L) 34.1 - 44.9 % 12/12/2024 6:07 AM EDT [facility] MCV 97(H) 79 - 95 fL 12/12/2024 6:07 AM EDT [facility] MCH 30.5 25.6 - 32.2 pg 12/12/2024 6:07 AM EDT [facility] MCHC 31.5(L) 32.2 - 35.5 GM/DL 12/12/2024 6:07 AM EDT [facility] RDW 16.7(H) 11.7 - 14.4 % 12/12/2024 6:07 AM EDT [facility] Platelets 43(L) 140 - 375 K/CU MM 12/12/2024 6:07 AM EDT [facility] MPV 11.8 9.4 - 12.3 fL 12/12/2024 6:07 AM EDT [facility] % Neutros 57 34 - 71 % 12/12/2024 6:07 AM EDT [facility] % Lymphs 29 19 - 52 % 12/12/2024 6:07 AM EDT [facility] % Monos 13 5 - 13 % 12/12/2024 6:07 AM EDT [facility] % Eos 1 1 - 6 % 12/12/2024 6:07 AM EDT [facility] % Baso 0 0 - 1 % 12/12/2024 6:07 AM EDT [facility] NRBC Absolute <0.01 0 - 0.012 K/ul 12/12/2024 6:07 AM EDT [facility] # Neutros 0.80(L) 1.56 - 6.13 K/ L 12/12/2024 6:07 AM EDT [facility] # Lymphs 0.41(L) 1.18 - 3.74 K/ L 12/12/2024 6:07 AM EDT [facility] # Monos 0.18(L) 0.24 - 0.86 K/ L 12/12/2024 6:07 AM EDT [facility] # Eos <0.03(L) 0.04 - 0.36 K/ L 12/12/2024 6:07 AM EDT [facility] # Baso <0.03 0.01 - 0.08 K/ L 12/12/2024 6:07 AM EDT [facility] Immature Granulocytes-Re lative 0.70(H) 0.01 - 0.43 % 12/12/2024 6:07 AM EDT [facility] # IG <0.03 0.00 - 0.03 K/uL 12/12/2024 6:07 AM EDT [facility] Blood Venipuncture / Unknown 12/12/2024 3:47 AM EDT 12/12/2024 4:40 AM EDT Narrative [facility] - 12/12/2024 6:07 AM EDT When [...] MD LAB BLOOD ORDERABLES Final Resul t [facility] [address] [place] [address] * (ABNORMAL) Basic Metabolic Panel (12/12/2024 3:47 AM EDT) Sodium 144 136 - 145 meq/L 12/12/2024 5:16 AM EDT [facility] Potassium 3.4 3.4 - 5.1 meq/L 12/12/2024 5:16 AM EDT [facility] CO2 26 22 - 29 meq/L 12/12/2024 5:16 AM EDT [facility] Chloride 110 98 - 112 meq/L 12/12/2024 5:16 AM EDT [facility] Glucose 140(H) 82 - 115 mg/dL 12/12/2024 5:16 AM EDT [facility] BUN 70.7(H) 9.8 - 20.1 mg/dL 12/12/2024 5:16 AM EDT [facility] Creatinine 2.28(H) 0.57 - 1.11 mg/dL 12/12/2024 5:16 AM EDT [facility] BUN/Creatinine 31(H) 8 - 20 12/12/2024 5:16 AM EDT [facility] Calcium 8.3(L) 8.4 - 10.2 mg/dL 12/12/2024 5:16 AM EDT [facility] Anion Gap 11 4 - 12 12/12/2024 5:16 AM EDT [facility] eGFR (mL/min/1.73m2) 24(L) >=60 mL/min/1.7 3m2 12/12/2024 5:16 AM EDT [facility] Osmolality Calc 309.9 mOsm/kg 5:16 AM EDT [facility] Blood Venipuncture / Unknown 12/12/2024 3:47 AM EDT 12/12/2024 4:41 AM EDT Venkatesh Stephen MD LAB BLOOD ORDERABLES Final Resul t Performing Organization Address [facility] de Phone Number [facility] [address] [phone] * (ABNORMAL) Glucose, Nova Meter (12/11/2024 7:32 PM EDT) POC-GLUCOSE 159(H) 70 - 110 mg/dL 12/11/2024 7:33 PM EDT [facility] Comment: In the event of poor peripheral blood flow, venous or arterial blood should be used due to the potential of erroneous results. Notified Nurse RBV Nurse Advisor [phone] 12/11/2024 7:33 PM EDT [facility] Blood WHOLE BLOOD / Unknown 12/11/2024 7:32 PM EDT 12/11/2024 7:33 PM EDT Narrative [facility] - 12/11/2024 7:33 PM EDT Nurse Advisor ID is - [id number] us David Coffman PA-C POINT OF CARE TEST ORDERABLES Final Result Performing Organization Address [facility]/ZIP Co de Phone Number [facility] [address] [phone] * (ABNORMAL) Glucose, Nova Meter (12/11/2024 4:18 PM EDT) POC-GLUCOSE 156(H) 70 - 110 mg/dL 12/11/2024 4:19 PM EDT [facility] Comment: In the event of poor peripheral blood flow, venous or arterial blood should be used due to the potential of erroneous results. Notified Nurse RBV Nurse Advisor [phone] 12/11/2024 4:19 PM EDT [facility] Blood WHOLE BLOOD / Unknown 12/11/2024 4:18 PM EDT 12/11/2024 4:19 PM EDT Narrative [facility] - 12/11/2024 4:19 PM EDT Nurse Advisor ID is - [id number] [facility] Andry Ellisie PA-C POINT OF CARE TEST ORDERABLES Final Result Performing Organization Address [facility] tn Phone Number [facility] [address] [phone] * (ABNORMAL) Glucose, Nova Meter (12/11/2024 10:43 AM EDT) POC-GLUCOSE 254(H) 70 - 110 mg/dL 12/11/2024 10:45 AM EDT [facility] Comment: In the event of poor peripheral blood flow, venous or arterial blood should be used due to the potential of erroneous results. Notified Nurse RBV Nurse Advisor [phone] 12/11/2024 10:45 AM EDT [facility] Blood WHOLE BLOOD / Unknown 12/11/2024 10:43 AM EDT 12/11/2024 10:45 AM EDT Narrative [facility] - 12/11/2024 10:45 AM EDT Nurse Advisor ID is - [id number] [facility] Andry Chilchinbito PA-C POINT OF CARE TEST ORDERABLES Final Result Performing Organization Address [facility] de Phone Number [facility] [address] [phone] * ECG 12 lead (12/11/2024 10:29 AM EDT) VENTRICULAR RATE EKG/MIN 85 BPM GE MUSE ATRIAL RATE (MCT) 85 BPM GE MUSE [place] Interval 142 ms GE MUSE QRS-INTERVAL (MSEC) 92 ms GE MUSE QT Interval 400 ms GE MUSE QTC Interval 476 ms GE MUSE P [place] 34 degrees GE MUSE R AXIS (MCT) -10 degrees GE MUSE T Wave [place] 57 degrees GE MUSE [place] Diagnosis Normal sinus rhythm Minimal voltage criteria [...] ECG ORDERABLES Final Result Performing Organization Address City/[facility]/ZIP Co de Phone Number GE MUSE * (ABNORMAL) Glucose, Nova Meter (12/11/2024 5:15 AM EDT) Pathologist [facility] POC-GLUCOSE 143(H) 70 - 110 mg/dL 12/11/2024 5:16 AM EDT [facility] Comment: In the event of poor peripheral blood flow, venous or arterial blood should be used due to the potential of erroneous results. Notified Nurse RBV Nurse Advisor [phone] 12/11/2024 5:16 AM EDT [facility] Blood WHOLE BLOOD / Unknown 12/11/2024 5:15 AM EDT 12/11/2024 5:16 AM EDT Narrative [facility] - 12/11/2024 5:16 AM EDT Nurse Advisor ID is - [id number] us Venkatesh Stephen MD POINT OF CARE TEST ORDERABLES Fi nal Result Performing Organization Address City/[facility]/ZIP Co de Phone Number [facility] [address] [phone] * (ABNORMAL) Basic Metabolic Panel (12/11/2024 3:39 AM EDT) Sodium 146(H) 136 - 145 meq/L 12/11/2024 4:25 AM EDT [facility] Potassium 3.7 3.4 - 5.1 meq/L 12/11/2024 4:25 AM EDT [facility] CO2 26 22 - 29 meq/L 12/11/2024 4:25 AM EDT [facility] Chloride 114(H) 98 - 112 meq/L 12/11/2024 4:25 AM EDT [facility] Glucose 154(H) 82 - 115 mg/dL 12/11/2024 4:25 AM EDT [facility] BUN 74.9(H) 9.8 - 20.1 mg/dL 12/11/2024 4:25 AM EDT [facility] Creatinine 2.61(H) 0.57 - 1.11 mg/dL 12/11/2024 4:25 AM EDT [facility] BUN/Creatinine 29(H) 8 - 20 12/11/2024 4:25 AM EDT [facility] Calcium 8.2(L) 8.4 - 10.2 mg/dL 12/11/2024 4:25 AM EDT [facility] Anion Gap 10 4 - 12 12/11/2024 4:25 AM EDT [facility] eGFR (mL/min/1.73m2) 20(L) >=60 mL/min/1.7 3m2 12/11/2024 4:25 AM EDT [facility] Osmolality Calc 315.9 mOsm/kg 4:25 AM EDT [facility] Blood Venipuncture / Unknown 12/11/2024 3:39 AM EDT 12/11/2024 3:59 AM EDT us Venkatesh Stephen MD LAB BLOOD ORDERABLES Final Resul t [facility] [address] [phone] * (ABNORMAL) CBC with automated diff (12/11/2024 3:36 AM EDT) WBC 1.7(LL) 4.0 - 10.0 K/ L 12/11/2024 4:19 AM EDT [facility] RBC 2.50(L) 3.93 - 5.22 M/ L 12/11/2024 4:19 AM EDT [facility] Hemoglobin 7.7(L) 11.2 - 15.7 GM/DL 12/11/2024 4:19 AM EDT [facility] Hematocrit 24.4(L) 34.1 - 44.9 % 12/11/2024 4:19 AM EDT [facility] MCV 98(H) 79 - 95 fL 12/11/2024 4:19 AM EDT [facility] MCH 30.8 25.6 - 32.2 pg 12/11/2024 4:19 AM EDT [facility] MCHC 31.6(L) 32.2 - 35.5 GM/DL 12/11/2024 4:19 AM EDT [facility] RDW 16.9(H) 11.7 - 14.4 % 12/11/2024 4:19 AM EDT [facility] Platelets 50(L) 140 - 375 K/CU MM 12/11/2024 4:19 AM EDT [facility] MPV 11.7 9.4 - 12.3 fL 12/11/2024 4:19 AM EDT [facility] % Neutros 58 34 - 71 % 12/11/2024 4:19 AM EDT [facility] % Lymphs 27 19 - 52 % 12/11/2024 4:19 AM EDT [facility] % Monos 15(H) 5 - 13 % 12/11/2024 4:19 AM EDT [facility] % Eos 0(L) 1 - 6 % 12/11/2024 4:19 AM EDT [facility] % Baso 1 0 - 1 % 12/11/2024 4:19 AM EDT [facility] NRBC Absolute <0.01 0 - 0.012 K/ul 12/11/2024 4:19 AM EDT [facility] # Neutros 1.00(L) 1.56 - 6.13 K/ L 12/11/2024 4:19 AM EDT [facility] # Lymphs 0.46(L) 1.18 - 3.74 K/ L 12/11/2024 4:19 AM EDT [facility] # Monos 0.26 0.24 - 0.86 K/ L 12/11/2024 4:19 AM EDT [facility] # Eos <0.03(L) 0.04 - 0.36 K/ L 12/11/2024 4:19 AM EDT [facility] # Baso <0.03 0.01 - 0.08 K/ L 12/11/2024 4:19 AM EDT [facility] Immature Granulocytes-Re lative 0.00(L) 0.01 - 0.43 % 12/11/2024 4:19 AM EDT [facility] # IG <0.03 0.00 - 0.03 K/uL 12/11/2024 4:19 AM EDT [facility] Blood Venipuncture / Unknown 12/11/2024 3:36 AM EDT 12/11/2024 3:59 AM EDT Narrative [facility] - 12/11/2024 4:19 AM EDT When [...] MD LAB BLOOD ORDERABLES Final Resul t [facility] [address] [place] [address], [facility] [phone] * (ABNORMAL) Glucose, Nova Meter (12/10/2024 7:38 PM EDT) POC-GLUCOSE 201(H) 70 - 110 mg/dL 12/10/2024 7:39 PM EDT [facility] Comment: In the event of poor peripheral blood flow, venous or arterial blood should be used due to the potential of erroneous results. Notified Nurse RBV Nurse Advisor [phone] 12/10/2024 7:39 PM EDT [facility] Blood WHOLE BLOOD / Unknown 12/10/2024 7:38 PM EDT 12/10/2024 7:39 PM EDT Narrative [facility] - 12/10/2024 7:39 PM EDT Nurse Advisor ID is - [id number] us Venkatesh Stephen MD POINT OF CARE TEST ORDERABLES Fi nal Result [facility] [address] [phone] * (ABNORMAL) Glucose, Nova Meter (12/10/2024 6:32 PM EDT) POC-GLUCOSE 235(H) 70 - 110 mg/dL 12/10/2024 6:34 PM EDT [facility] Comment: In the event of poor peripheral blood flow, venous or arterial blood should be used due to the potential of erroneous results. Notified Nurse RBV Nurse Advisor [phone] 12/10/2024 6:34 PM EDT [facility] Blood WHOLE BLOOD / Unknown 12/10/2024 6:32 PM EDT 12/10/2024 6:34 PM EDT Narrative [facility] - 12/10/2024 6:34 PM EDT Nurse Advisor ID is - [id number] us Venkatesh Stephen MD POINT OF CARE TEST ORDERABLES Fi nal Result [facility] [address] [place] [address], [facility] [phone] * (ABNORMAL) Glucose, Nova Meter (12/10/2024 4:56 PM EDT) POC-GLUCOSE 195(H) 70 - 110 mg/dL 12/10/2024 4:58 PM EDT [facility] Comment: In the event of poor peripheral blood flow, venous or arterial blood should be used due to the potential of erroneous results. Notified Nurse RBV Nurse Advisor [phone] 12/10/2024 4:58 PM EDT [facility] Blood WHOLE BLOOD / Unknown 12/10/2024 4:56 PM EDT 12/10/2024 4:58 PM EDT Narrative [facility] - 12/10/2024 4:58 PM EDT Nurse Advisor ID is - [id number] us Venkatesh Stephen MD POINT OF CARE TEST ORDERABLES Fi nal Result [facility] [address] [phone] * US paracentesis (12/10/2024 11:37 AM EDT) [...] Ascites. ATTENDING PHYSICIAN: Dr. Haseeb Gil PHYSICIAN CHANNEL SALES DIRECTOR: Sujit Blackman PA-C FINDINGS: After informed consent [...] Ascites. ATTENDING PHYSICIAN: Dr. Haseeb Gil PHYSICIAN CHANNEL SALES DIRECTOR: Sujit Blackman PA-C FINDINGS: After informed consent [...] ATRIAL RATE (MCT) 90 BPM GE MUSE IL Interval 138 ms GE MUSE QRS-INTERVAL (MSEC) 90 ms GE MUSE QT Interval 396 ms GE MUSE QTC Interval 484 ms GE MUSE P [place] 31 degrees GE MUSE R AXIS (MCT) -10 degrees GE MUSE T Wave [place] 37 degrees GE MUSE [place] Diagnosis Normal sinus rhythm Leftward axis Abnormal ECG When compared with ECG of 09-DEC-2024 12:33, No significant change was found Confirmed by Aleksandr ROBIN, SANJIV ([id number]) on 12/12/2024 1:22:56 AM GE MUSE 12/10/2024 10:0 7 AM EDT 12/12/2024 1:22 AM EDT us Deysi Foss MD ECG ORDERABLES Final Result GE MUSE * Magnesium (12/10/2024 9:53 AM EDT) Pathologist [facility] Magnesium 2.3 1.6 - 2.6 mg/dL 12/10/2024 11:02 AM EDT [facility] Blood Venipuncture / Unknown 12/10/2024 9:53 AM EDT 12/10/2024 10:39 AM EDT Deysi Foss MD LAB BLOOD ORDERABLES Final Resul t Performing Organization Address [facility] Co de Phone Number [facility] [address] [phone] * ALT (SGPT) (12/10/2024 9:53 AM EDT) ALT 12 <=34 U/L 12/10/2024 11:02 AM EDT [facility] Comment: ALT2 reagent used for testing [...] ORDERABLES Final Resul t Performing Organization Address [facility] Co de Phone Number [facility] [address] [phone] * (ABNORMAL) AST (SGOT) (12/10/2024 9:53 AM EDT) AST 39(H) 11 - 34 U/L 12/10/2024 11:02 AM EDT [facility] Comment: AST2 reagent used for testing does not contain P5P supplementation and therefore may miss AST elevations in patients with B6 deficiency. This population may be as high as 10% in the [place], with risk factors including malabsorption, drug interactions, and alcoholic hepatitis. [employer] has become aware of sulfasalazine and sulfapyridine [...] MD LAB BLOOD ORDERABLES Final Resul t [facility] [address] [phone] * XR chest AP portable (12/10/2024 9:10 [...] 7.30(L) 7.35 - 7.45 12/10/2024 6:51 AM [facility] pCO2, Arterial 49(H) 35 - 45 mm Hg 12/10/2024 6:51 AM EDT [facility] pO2, Arterial 119(H) 80 - 100 mm Hg 12/10/2024 6:51 AM [facility] HCO3, Arterial 24 20 - 26 mmol/L 12/10/2024 6:51 AM [facility] Base Excess, Arterial -2.4(L) -2.0 - 2.0 mmol/L 12/10/2024 6:51 AM [facility] O2 Sat, Arterial >99.2 95.0 - 100.0 % 12/10/2024 6:51 AM [facility] Comment:notified at read-anny k verification CTO2 ARTERIAL 11.9 mmol/L 12/10/2024 6:51 AM [facility] THB ARTERIAL 8.5(L) 12.0 - 18.0 g/dL 12/10/2024 6:51 AM [facility] SJ COLLECTION SITE Left Radial 12/10/2024 6:51 AM [facility] Arterial Puncture Yes 12/10/2024 6:51 AM [facility] Blood Gas O2 Delivery Device Cannula 12/10/2024 6:51 AM [facility] Oxygen Flow Rate 4 12/11/19 25 6:51 AM [facility] Blood Gas PT Temperature C 37.0 12/10/2024 6:51 AM [facility] Sen's Test Acceptable 12/10/2024 6:51 AM [facility] ABG Number of Draw Attempts 1 12/10/2024 6:51 AM [facility] FIO2 12/10/2024 6:51 AM [facility] Blood Gas Temperature Corrected Results No No 12/10/2024 6:51 AM EDT [facility] Blood, Arterial Collection / Unknown 12/10/2024 6:42 AM EDT 12/10/2024 6:51 AM EDT us Blanka Malagon MD LAB BLOOD ORDERABLES Final Re sult Performing Organization Address [facility]/ZIP Co de Phone Number [facility] [address] [phone] * (ABNORMAL) Glucose, Nova Meter (12/10/2024 5:52 AM EDT) POC-GLUCOSE 162(H) 70 - 110 mg/dL 12/10/2024 5:53 AM EDT [facility] Comment: In the event of poor peripheral blood flow, venous or arterial blood should be used due to the potential of erroneous results. Notified Nurse [facility]BV Nurse Advisor [phone] 12/10/2024 5:53 AM EDT [facility] Blood WHOLE BLOOD / Unknown 12/10/2024 5:52 AM EDT 12/10/2024 5:53 AM EDT Narrative [facility] - 12/10/2024 5:53 AM EDT Nurse Advisor ID is - [id number] us Mary Carmen Mcfadden MD POINT OF CARE TEST ORDERABLES F inal Result Performing Organization Address [facility] Co de Phone Number [facility] [address] [phone] * (ABNORMAL) Glucose, Nova Meter (12/09/2024 7:30 PM EDT) POC-GLUCOSE 158(H) 70 - 110 mg/dL 12/09/2024 7:31 PM EDT [facility] Comment: In the event of poor peripheral blood flow, venous or arterial blood should be used due to the potential of erroneous results. Notified Nurse RBV Nurse Advisor [phone] 12/09/2024 7:31 PM EDT [facility] Blood WHOLE BLOOD / Unknown 12/09/2024 7:30 PM EDT 12/09/2024 7:31 PM EDT Narrative [facility] - 12/09/2024 7:31 PM EDT Nurse Advisor ID is - [id number] Mary Carmen Mcfadden MD POINT OF CARE TEST ORDERABLES F inal Result Performing Organization Address [facility] Co de Phone Number [facility] [address] [phone] * (ABNORMAL) Glucose, Nova Meter (12/09/2024 4:23 PM EDT) POC-GLUCOSE 173(H) 70 - 110 mg/dL 12/09/2024 4:24 PM EDT [facility] Comment: In the event of poor peripheral blood flow, venous or arterial blood should be used due to the potential of erroneous results. Notified Nurse RBV Nurse Advisor [phone] 12/09/2024 4:24 PM EDT [facility] Blood WHOLE BLOOD / Unknown 12/09/2024 4:23 PM EDT 12/09/2024 4:24 PM EDT Narrative [facility] - 12/09/2024 4:24 PM EDT Nurse Advisor ID is - [id number] Mary Carmen Mcfadden MD POINT OF CARE TEST ORDERABLES F inal Result Performing Organization Address [facility] Co de Phone Number [facility] [address] [phone] * ECG 12 lead (12/09/2024 12:33 PM EDT) VENTRICULAR RATE EKG/MIN 91 BPM GE MUSE ATRIAL RATE (MCT) 91 BPM GE MUSE IL Interval 140 ms GE MUSE QRS-INTERVAL (MSEC) 88 ms GE MUSE QT Interval 386 ms GE MUSE QTC Interval 474 ms GE MUSE P [place] 44 degrees GE MUSE R AXIS (MCT) -3 degrees GE MUSE T Wave [place] 16 degrees GE MUSE [place] Diagnosis Normal sinus rhythm Minimal voltage criteria for LVH, may be normal variant Septal infarct (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 ([id number]) on 12/09/2024 6:05:19 PM GE MUSE 12/09/2024 12:3 3 PM EDT 12/09/2024 6:05 PM EDT Deysi Foss MD ECG ORDERABLES Final Result Performing Organization Address City/[facility]/ZIP Co de Phone Number GE MUSE * (ABNORMAL) Glucose, Nova Meter (12/09/2024 11:17 AM EDT) POC-GLUCOSE 173(H) 70 - 110 mg/dL 12/09/2024 11:18 AM EDT [facility] Comment: In the event of poor peripheral blood flow, venous or arterial blood should be used due to the potential of erroneous results. Notified Nurse RBV Nurse Advisor [phone] 12/09/2024 11:18 AM EDT [facility] Blood WHOLE BLOOD / Unknown 12/09/2024 11:17 AM EDT 12/09/2024 11:18 AM EDT Narrative [facility] - 12/09/2024 11:18 AM EDT Nurse Advisor ID is - [id number] us Mary Carmen Mcfadden MD POINT OF CARE TEST ORDERABLES F inal Result Performing Organization Address [facility]/ZIP Co de Phone Number [facility] [address] [phone] * XR chest AP portable (12/09/2024 7:09 [...] 7.35 - 7.45 12/09/2024 6:52 AM EDT [facility] pCO2, Arterial 51(H) 35 - 45 mm Hg 12/09/2024 6:52 AM EDT [facility] pO2, Arterial 157(H) 80 - 100 mm Hg 12/09/2024 6:52 AM EDT [facility] HCO3, Arterial 24 20 - 26 mmol/L 12/09/2024 6:52 AM EDT [facility] Base Excess, Arterial -2.6(L) -2.0 - 2.0 mmol/L 12/09/2024 6:52 AM EDT [facility] O2 Sat, Arterial >99.2 95.0 - 100.0 % 12/09/2024 6:52 AM EDT [facility] Comment:[id number] notified PAULINO COFFMAN RN at 12/09/2024 06:51 read-back verification CTO2 ARTERIAL 12.3 mmol/L 12/09/2024 6:52 AM EDT [facility] THB ARTERIAL 8.7(L) 12.0 - 18.0 g/dL 12/09/2024 6:52 AM EDT [facility] SJH COLLECTION SITE Left Radial 12/09/2024 6:52 AM EDT [facility] Arterial Puncture Yes 12/09/2024 6:52 AM EDT [facility] Blood Gas O2 Delivery Device Cannula 12/09/2024 6:52 AM EDT [facility] Oxygen Flow Rate 4 12/10/19 6:52 AM EDT [facility] Blood Gas PT Temperature C 37.0 12/09/2024 6:52 AM EDT [facility] Sen's Test Acceptable 12/09/2024 6:52 AM EDT [facility] Critical Values Notification Critical Blood gas called to DAYANARA MILES . [place] [id number] and confirmed on 12/09/2024 06:51 12/09/2024 6:52 AM EDT [facility] ABG Number of Draw Attempts 1 12/09/2024 6:52 AM EDT [facility] FIO2 12/09/2024 6:52 AM EDT [facility] Blood Gas Temperature Corrected Results No No 12/09/2024 6:52 AM EDT [facility] Blood, Arterial ENTIRE LEFT UPPER ARM / Unknown 12/09/2024 6:37 AM EDT 12/09/2024 6:52 AM EDT us Blanka Malagon MD LAB BLOOD ORDERABLES Final Re sult [facility] [address] [phone] * (ABNORMAL) Glucose, Nova Meter (12/09/2024 5:45 AM EDT) POC-GLUCOSE 148(H) 70 - 110 mg/dL 12/09/2024 5:46 AM EDT [facility] Comment: In the event of poor peripheral blood flow, venous or arterial blood should be used due to the potential of erroneous results. Notified Nurse RBV Nurse Advisor [phone] 12/09/2024 5:46 AM EDT [facility] Blood WHOLE BLOOD / Unknown 12/09/2024 5:45 AM EDT 12/09/2024 5:46 AM EDT Narrative [facility] - 12/09/2024 5:46 AM EDT Nurse Advisor ID is - [id number] us Mary Carmen Mcfadden MD POINT OF CARE TEST ORDERABLES F inal Result [facility] [address] [phone] * (ABNORMAL) CBC - Hemogram (SJ-BKR) (12/09/2024 3:38 AM EDT) WBC 2.4(L) 4.0 - 10.0 K/ L 12/09/2024 3:59 AM EDT [facility] RBC 2.83(L) 3.93 - 5.22 M/ L 12/09/2024 3:59 AM EDT [facility] Hemoglobin 8.5(L) 11.2 - 15.7 GM/DL 12/09/2024 3:59 AM EDT [facility] Hematocrit 28.0(L) 34.1 - 44.9 % 12/09/2024 3:59 AM EDT [facility] MCV 99(H) 79 - 95 fL 12/09/2024 3:59 AM EDT [facility] MCH 30.0 25.6 - 32.2 pg 12/09/2024 3:59 AM EDT [facility] MCHC 30.4(L) 32.2 - 35.5 GM/DL 12/09/2024 3:59 AM EDT [facility] RDW 17.2(H) 11.7 - 14.4 % 12/09/2024 3:59 AM EDT [facility] Platelets 55(L) 140 - 375 K/CU MM 12/09/2024 3:59 AM EDT [facility] MPV 11.5 9.4 - 12.3 fL 12/09/2024 3:59 AM EDT [facility] Blood Venipuncture / Unknown 12/09/2024 3:38 AM EDT 12/09/2024 3:45 AM EDT us Mary Carmen Mcfadden MD LAB BLOOD ORDERABLES Final Resu lt [facility] [address] [phone] * (ABNORMAL) Basic Metabolic Panel (12/09/2024 3:38 AM EDT) Sodium 148(H) 136 - 145 meq/L 12/09/2024 4:07 AM EDT [facility] Potassium 3.6 3.4 - 5.1 meq/L 12/09/2024 4:07 AM EDT [facility] CO2 23 22 - 29 meq/L 12/09/2024 4:07 AM EDT [facility] Chloride 116(H) 98 - 112 meq/L 12/09/2024 4:07 AM EDT [facility] Glucose 146(H) 82 - 115 mg/dL 12/09/2024 4:07 AM EDT [facility] BUN 77.3(H) 9.8 - 20.1 mg/dL 12/09/2024 4:07 AM EDT [facility] Creatinine 2.82(H) 0.57 - 1.11 mg/dL 12/09/2024 4:07 AM EDT [facility] BUN/Creatinine 27(H) 8 - 20 12/09/2024 4:07 AM EDT [facility] Calcium 8.7 8.4 - 10.2 mg/dL 12/09/2024 4:07 AM EDT [facility] Anion Gap 13(H) 4 - 12 12/09/2024 4:07 AM EDT [facility] eGFR (mL/min/1.73m2) 18(L) >=60 mL/min/1.7 3m2 12/09/2024 4:07 AM EDT [facility] Osmolality Calc 320.0 mOsm/kg 4:07 AM EDT [facility] Blood Venipuncture / Unknown 12/09/2024 3:38 AM EDT 12/09/2024 3:45 AM EDT Mary Carmen Mcfadden MD LAB BLOOD ORDERABLES Final Resu lt Performing Organization Address [facility] Co de Phone Number [facility] [address] [phone] * (ABNORMAL) Glucose, Nova Meter (12/08/2024 8:08 PM EDT) POC-GLUCOSE 172(H) 70 - 110 mg/dL 12/08/2024 8:08 PM EDT [facility] Comment: In the event of poor peripheral blood flow, venous or arterial blood should be used due to the potential of erroneous results. Notified Nurse RBV Nurse Advisor [phone] 12/08/2024 8:08 PM EDT [facility] Blood WHOLE BLOOD / Unknown 12/08/2024 8:08 PM EDT 12/08/2024 8:08 PM EDT Narrative [facility] - 12/08/2024 8:08 PM EDT Nurse Advisor ID is - [id number] Mary Carmen Mcfadden MD POINT OF CARE TEST ORDERABLES F inal Result Performing Organization Address [facility] Co de Phone Number [facility] [address] [phone] * (ABNORMAL) Glucose, Nova Meter (12/08/2024 3:34 PM EDT) POC-GLUCOSE 159(H) 70 - 110 mg/dL 12/08/2024 3:36 PM EDT [facility] Comment: In the event of poor peripheral blood flow, venous or arterial blood should be used due to the potential of erroneous results. Notified Nurse RBV Nurse Advisor [phone] 12/08/2024 3:36 PM EDT [facility] Blood WHOLE BLOOD / Unknown 12/08/2024 3:34 PM EDT 12/08/2024 3:36 PM EDT Narrative [facility] - 12/08/2024 3:36 PM EDT Nurse Advisor ID is - [id number] Mary Carmen Mcfadden MD POINT OF CARE TEST ORDERABLES F inal Result Performing Organization Address [facility] de Phone Number [facility] [address] [phone] * (ABNORMAL) Glucose, Nova Meter (12/08/2024 10:57 AM EDT) Pathologist [facility] POC-GLUCOSE 191(H) 70 - 110 mg/dL 12/08/2024 10:59 AM EDT [facility] Comment: In the event of poor peripheral blood flow, venous or arterial blood should be used due to the potential of erroneous results. Protocols Followed Notified Nurse RBV Nurse Advisor [phone] 12/08/2024 10:59 AM EDT [facility] Blood WHOLE BLOOD / Unknown 12/08/2024 10:57 AM EDT 12/08/2024 10:[address] [facility] - 12/08/2024 10:59 AM EDT Nurse Advisor ID is - [phone] Mary Carmen Mcfadden MD POINT OF CARE TEST ORDERABLES F inal Result Performing Organization Address [facility] Co de Phone Number [facility] [address] [phone] * ECG 12 lead (12/08/2024 10:55 AM EDT) VENTRICULAR RATE EKG/MIN 92 BPM GE MUSE ATRIAL RATE (MCT) 92 BPM GE MUSE IL Interval 138 ms GE MUSE QRS-INTERVAL (MSEC) 94 ms GE MUSE QT Interval 354 ms GE MUSE QTC Interval 437 ms GE MUSE P [place] 30 degrees GE MUSE R AXIS (MCT) -11 degrees GE MUSE T Wave [place] 37 degrees GE MUSE [place] Diagnosis Normal sinus rhythm Minimal voltage criteria [...] 7.35 - 7.45 12/08/2024 7:31 AM EDT [facility] pCO2, Arterial 54(H) 35 - 45 mm Hg 12/08/2024 7:31 AM EDT [facility] pO2, Arterial 80 80 - 100 mm Hg 12/08/2024 7:31 AM EDT [facility] HCO3, Arterial 24 20 - 26 mmol/L 12/08/2024 7:31 AM EDT [facility] Base Excess, Arterial -2.9(L) -2.0 - 2.0 mmol/L 12/08/2024 7:31 AM EDT [facility] O2 Sat, Arterial 96.7 95.0 - 100.0 % 12/08/2024 7:31 AM EDT [facility] CTO2 ARTERIAL 11.8 mmol/L 12/08/2024 7:31 AM EDT [facility] THB ARTERIAL 8.8(L) 12.0 - 18.0 g/dL 12/08/2024 7:31 AM EDT [facility] S[facility] COLLECTION SITE Right Brachial 12/08/2024 7:31 AM EDT [facility] Arterial Puncture Yes 12/08/2024 7:31 AM EDT [facility] Blood Gas O2 Delivery Device Cannula 12/08/2024 7:31 AM EDT [facility] Oxygen Flow Rate 4 12/09/19 7:31 AM EDT [facility] Blood Gas PT Temperature C 37.0 12/08/2024 7:31 AM EDT [facility] Sen's Test Not Applicable 12/09/19 7:31 AM EDT [facility] Critical Values Notification Critical Blood gas called to KNOWN CONDITION . Results acknowledged/r ead back to [id number] and confirmed on 12/08/2024 07:30 12/08/2024 7:31 AM EDT [facility] ABG Number of Draw Attempts 1 12/08/2024 7:31 AM EDT [facility] FIO2 12/08/2024 7:31 AM EDT [facility] Blood Gas Temperature Corrected Results No No 12/08/2024 7:31 AM EDT [facility] Blood, Arterial 12/08/2024 7 :13 AM EDT 12/08/2024 7:31 AM EDT Mary Carmen Mcfadden MD LAB BLOOD ORDERABLES Final Resu lt Performing Organization Address [facility] Co de Phone Number [facility] [address] [place] [address] * (ABNORMAL) Glucose, Nova Meter (12/08/2024 6:08 AM EDT) [facility] Signature POC-GLUCOSE 136(H) 70 - 110 mg/dL 12/08/2024 6:09 AM EDT [facility] Comment: In the event of poor peripheral blood flow, venous or arterial blood should be used due to the potential of erroneous results. Protocols Followed Notified Nurse RBV Nurse Advisor [phone] 12/08/2024 6:09 AM EDT [facility] Blood WHOLE BLOOD / Unknown 12/08/2024 6:08 AM EDT 12/08/2024 6:09 AM EDT Narrative [facility] - 12/08/2024 6:09 AM EDT Nurse Advisor ID is - [id number] us Mary Carmen Mcfadden MD POINT OF CARE TEST ORDERABLES F inal Result Performing Organization Address [facility] Co de Phone Number [facility] [address] [phone] * (ABNORMAL) CBC - Hemogram (SJ-BKR) (12/08/2024 4:10 AM EDT) Pathologist [facility] WBC 3.1(L) 4.0 - 10.0 K/ L 12/08/2024 4:53 AM EDT [facility] RBC 2.84(L) 3.93 - 5.22 M/ L 12/08/2024 4:53 AM EDT [facility] Hemoglobin 8.7(L) 11.2 - 15.7 GM/DL 12/08/2024 4:53 AM EDT [facility] Hematocrit 28.2(L) 34.1 - 44.9 % 12/08/2024 4:53 AM EDT [facility] MCV 99(H) 79 - 95 fL 12/08/2024 4:53 AM EDT [facility] MCH 30.6 25.6 - 32.2 pg 12/08/2024 4:53 AM EDT [facility] MCHC 30.9(L) 32.2 - 35.5 GM/DL 12/08/2024 4:53 AM EDT [facility] RDW 17.4(H) 11.7 - 14.4 % 12/08/2024 4:53 AM EDT [facility] Platelets 54(L) 140 - 375 K/CU MM 12/08/2024 4:53 AM EDT [facility] MPV 11.2 9.4 - 12.3 fL 12/08/2024 4:53 AM EDT [facility] Blood Venipuncture / Unknown 12/08/2024 4:10 AM EDT 12/08/2024 4:37 AM EDT us Mary Carmen Mcfadden MD LAB BLOOD ORDERABLES Final Resu lt [facility] [address] [phone] * (ABNORMAL) Basic Metabolic Panel (12/08/2024 4:10 AM EDT) Pathologist [facility] Sodium 149(H) 136 - 145 meq/L 12/08/2024 5:22 AM EDT [facility] Potassium 3.6 3.4 - 5.1 meq/L 12/08/2024 5:22 AM EDT [facility] CO2 23 22 - 29 meq/L 12/08/2024 5:22 AM EDT [facility] Chloride 116(H) 98 - 112 meq/L 12/08/2024 5:22 AM EDT [facility] Glucose 160(H) 82 - 115 mg/dL 12/08/2024 5:22 AM EDT [facility] BUN 76.4(H) 9.8 - 20.1 mg/dL 12/08/2024 5:22 AM EDT [facility] Creatinine 2.92(H) 0.57 - 1.11 mg/dL 12/08/2024 5:22 AM EDT [facility] BUN/Creatinine 26(H) 8 - 20 12/08/2024 5:22 AM EDT [facility] Calcium 8.7 8.4 - 10.2 mg/dL 12/08/2024 5:22 AM EDT [facility] Anion Gap 14(H) 4 - 12 12/08/2024 5:22 AM [facility] eGFR (mL/min/1.73m2) 18(L) >=60 mL/min/1.7 3m2 12/08/2024 5:22 AM EDT [facility] Osmolality Calc 322.3 mOsm/kg 5:22 AM T [facility] Blood Venipuncture / Unknown 12/08/2024 4:10 AM EDT 12/08/2024 4:40 AM EDT us Mary Carmen Mcfadden MD LAB BLOOD ORDERABLES Final Resu lt [facility] [address] [phone] * (ABNORMAL) Glucose, Nova Meter (12/07/2024 7:54 PM EDT) Pathologist [facility] POC-GLUCOSE 164(H) 70 - 110 mg/dL 12/07/2024 7:55 PM EDT [facility] Comment: In the event of poor peripheral blood flow, venous or arterial blood should be used due to the potential of erroneous results. Protocols Followed Notified Nurse RBV Nurse Advisor [phone] 12/07/2024 7:55 PM EDT [facility] Blood WHOLE BLOOD / Unknown 12/07/2024 7:54 PM EDT 12/07/2024 7:55 PM EDT Narrative [facility] - 12/07/2024 7:55 PM EDT Nurse Advisor ID is - [id number] Mary Carmen Mcfadden MD POINT OF CARE TEST ORDERABLES F inal Result [facility] [address] [phone] * (ABNORMAL) ABG (12/07/2024 4:21 PM EDT) [facility] pH, Arterial 7.29(L) 7.35 - 7.45 12/07/2024 4:43 PM EDT [facility] pCO2, Arterial 50(H) 35 - 45 mm Hg 12/07/2024 4:43 PM EDT [facility] pO2, Arterial 179(H) 80 - 100 mm Hg 12/07/2024 4:43 PM EDT [facility] HCO3, Arterial 24 20 - 26 mmol/L 12/07/2024 4:43 PM EDT [facility] Base Excess, Arterial -2.3(L) -2.0 - 2.0 mmol/L 12/07/2024 4:43 PM EDT [facility] O2 Sat, Arterial >100.0(H) 95.0 - 100.0 % 12/07/2024 4:43 PM EDT [facility] Comment:[id number] notified MORRIS LORENZ RN at 12/07/2024 16:42 read-back verification CTO2 ARTERIAL 12.0 mmol/L 12/07/2024 4:43 PM EDT [facility] THB ARTERIAL 8.4(L) 12.0 - 18.0 g/dL 12/07/2024 4:43 PM EDT [facility] PaO2/FIO2 calculated 359.0 12/07/2024 4:43 PM EDT [facility] COLLECTION SITE Right Brachial 12/07/2024 4:43 PM EDT [facility] Arterial Puncture Yes 12/07/2024 4:43 PM EDT [facility] [facility] Blood Gas O2 Delivery Device NIV 12/07/2024 4:43 PM EDT [facility] Blood Gas PT Temperature C 37.0 12/07/2024 4:43 PM EDT [facility] Sen's Test Not Applicable 12/08/19 4:43 PM EDT [facility] Critical Values Notification Critical Blood gas called to SEB LORENZ RN . Results acknowledged/r ead back to [id number] and confirmed on 12/07/2024 16:42 12/07/2024 4:43 PM EDT [facility] ABG Number of Draw Attempts 2 12/07/2024 4:43 PM EDT [facility] Set Rate 16.0 12/07/2024 4:43 PM EDT [facility] IPAP 10 12/07/2024 4:43 PM EDT [facility] EPAP 6 12/07/2024 4:43 PM EDT [facility] FIO2 50.0 12/07/2024 4:43 PM EDT [facility] Blood Gas Temperature Corrected Results No No 12/07/2024 4:43 PM EDT [facility] Blood, Arterial 12/07/2024 4 :21 PM EDT 12/07/2024 4:43 PM EDT us Blanka Malagon MD LAB BLOOD ORDERABLES Final Re sult [facility] [address] [place] [id number], [facility] [phone] * (ABNORMAL) Glucose, Nova Meter (12/07/2024 3:39 PM EDT) POC-GLUCOSE 159(H) 70 - 110 mg/dL 12/07/2024 3:41 PM EDT [facility] Comment: In the event of poor peripheral blood flow, venous or arterial blood should be used due to the potential of erroneous results. Notified Nurse RBV Nurse Advisor [phone] 12/07/2024 3:41 PM EDT [facility] Blood WHOLE BLOOD / Unknown 12/07/2024 3:39 PM EDT 12/07/2024 3:41 PM EDT Narrative [facility] - 12/07/2024 3:41 PM EDT Nurse Advisor ID is - [phone] us Mary Carmen Mcfadden MD POINT OF CARE TEST ORDERABLES F inal Result [facility] [address] [phone] * XR chest AP portable (12/07/2024 2:25 [...] by Dr. Lizzie Myles. Transcribed by Sandra VanHoose, PA-C. us Mary Carmen Mcfadden MD IMG DIAGNOSTIC IMAGING ORDERABL ES Final Result * (ABNORMAL) Blood gas, arterial (12/07/2024 2:02 PM EDT) pH, Arterial 7.28(L) 7.35 - 7.45 12/07/2024 3:27 PM EDT [facility] pCO2, Arterial 50(H) 35 - 45 mm Hg 12/07/2024 3:27 PM EDT [facility] pO2, Arterial 58(L) 80 - 100 mm Hg 12/07/2024 3:27 PM EDT [facility] HCO3, Arterial 24 20 - 26 mmol/L 12/07/2024 3:27 PM EDT [facility] Base Excess, Arterial -3.3(L) -2.0 - 2.0 mmol/L 12/07/2024 3:27 PM EDT [facility] O2 Sat, Arterial 91.3(L) 95.0 - 100.0 % 12/07/2024 3:27 PM EDT [facility] CTO2 ARTERIAL 11.2 mmol/L 12/07/2024 3:27 PM EDT [facility] THB ARTERIAL 8.9(L) 12.0 - 18.0 g/dL 12/07/2024 3:27 PM EDT [facility] COLLECTION SITE Right Radial 12/07/2024 3:27 PM EDT [facility] Arterial Puncture Yes 12/07/2024 3:27 PM EDT [facility] Blood Gas O2 Delivery Device Cannula 12/07/2024 3:27 PM EDT [facility] Oxygen Flow Rate 2 12/07/2024 3:27 PM EDT [facility] Blood Gas PT Temperature C 37.0 12/07/2024 3:27 PM EDT [facility] Sen's Test Unacceptable 12/07/2024 3:27 PM EDT [facility] Vent Mode Other 12/07/2024 3:27 PM EDT [facility] Critical Values Notification Critical Blood gas called to DR MALAGON . [place] [id number] and confirmed on 12/07/2024 14:14 12/07/2024 3:27 PM EDT [facility] ABG Number of Draw Attempts 1 12/07/2024 3:27 PM EDT [facility] Performed by: CD 12/07/2024 3:27 PM EDT [facility] FIO2 12/07/2024 3:27 PM EDT [facility] Blood Gas Temperature Corrected Results No No 12/07/2024 3:27 PM EDT [facility] Blood, Arterial 12/07/2024 2 :02 PM EDT 12/07/2024 2:14 PM EDT Mary Carmen Mcfadden MD LAB BLOOD ORDERABLES Final Resu lt Performing Organization Address [facility]/ZIP Co de Phone Number [facility] [address] [phone] * (ABNORMAL) Glucose, Nova Meter (12/07/2024 10:54 AM EDT) POC-GLUCOSE 146(H) 70 - 110 mg/dL 12/07/2024 10:56 AM EDT [facility] Comment: In the event of poor peripheral blood flow, venous or arterial blood should be used due to the potential of erroneous results. Notified Nurse RBV Nurse Advisor [phone] 12/07/2024 10:56 AM EDT [facility] Blood WHOLE BLOOD / Unknown 12/07/2024 10:54 AM EDT 12/07/2024 10:56 AM EDT Narrative [facility] - 12/07/2024 10:56 AM EDT Nurse Advisor ID is - [id number] Mary Carmen Mcfadden MD POINT OF CARE TEST ORDERABLES F inal Result Performing Organization Address [facility]/State/ZIP Co de Phone Number [facility] [address] [phone] * (ABNORMAL) Blood gas, arterial (12/07/2024 10:36 AM EDT) pH, Arterial 7.26(L) 7.35 - 7.45 12/07/2024 1:50 PM EDT [facility] pCO2, Arterial 50(H) 35 - 45 mm Hg 12/07/2024 1:50 PM EDT [facility] pO2, Arterial 43(LL) 80 - 100 mm Hg 12/07/2024 1:50 PM EDT [facility] HCO3, Arterial 22 20 - 26 mmol/L 12/07/2024 1:50 PM EDT [facility] Base Excess, Arterial -4.7(L) -2.0 - 2.0 mmol/L 12/07/2024 1:50 PM EDT [facility] O2 Sat, Arterial 80.4(L) 95.0 - 100.0 % 12/07/2024 1:50 PM T [facility] Comment:[id number] notified TRAY LORENZ RN at 12/07/2024 10:51 read-back verification CTO2 ARTERIAL 9.4 mmol/L 12/07/2024 1:50 PM [facility] THB ARTERIAL 8.5(L) 12.0 - 18.0 g/dL 12/07/2024 1:50 PM T [facility] PaO2/FIO2 calculated 203.0 12/07/2024 1:50 PM [facility] COLLECTION SITE Right Radial 12/07/2024 1:50 PM T [facility] Arterial Puncture Yes 12/07/2024 1:50 PM T [facility] Blood Gas PT Temperature C 37.0 12/07/2024 1:50 PM [facility] Sen's Test Acceptable 12/07/2024 1:50 PM [facility] Critical Values Notification Critical Blood gas called to TRAY LORENZ RN . Results [place] [id number] and confirmed on 12/07/2024 10:51 12/07/2024 1:50 PM [facility] ABG Number of Draw Attempts 1 12/07/2024 1:50 PM T [facility] FIO2 21.0 12/07/2024 1:50 PM T [facility] Blood Gas Temperature Corrected Results No No 12/07/2024 1:50 PM EDT [facility] Blood, Arterial 12/07/2024 1 0:36 AM EDT 12/07/2024 1:50 PM EDT Mary Carmen Mcfadden MD LAB BLOOD ORDERABLES Final Resu lt Performing Organization Address [facility]/ZIP Co de Phone Number [facility] [address] [phone] * ECG 12 lead (12/07/2024 10:29 AM EDT) Pathologist [facility] VENTRICULAR RATE EKG/MIN 91 BPM GE MUSE ATRIAL RATE (MCT) 91 BPM GE MUSE [place] Interval 142 ms GE MUSE QRS-INTERVAL (MSEC) 88 ms GE MUSE QT Interval 376 ms GE MUSE QTC Interval 462 ms GE MUSE P [place] 39 degrees GE MUSE R AXIS (MCT) -3 degrees GE MUSE T Wave [place] 4 degrees GE MUSE [place] Diagnosis Normal sinus rhythm Nonspecific T wave abnormality Abnormal ECG When compared with ECG of 06-DEC-2024 13:16, No significant change was found Confirmed by DEYSI FOSS M.D. ([id number]) on 12/07/2024 7:36:17 PM GE MUSE 12/07/2024 10:2 9 AM EDT 12/07/2024 7:36 PM EDT Mary Carmen Mcfadden MD ECG ORDERABLES Final Result Performing Organization Address [facility] de Phone Number [facility] * (ABNORMAL) Glucose, Nova Meter (12/07/2024 5:51 AM EDT) Pathologist [facility] POC-GLUCOSE 159(H) 70 - 110 mg/dL 12/07/2024 5:52 AM EDT [facility] Comment: In the event of poor peripheral blood flow, venous or arterial blood should be used due to the potential of erroneous results. Notified Nurse RBV Nurse Advisor [phone] 12/07/2024 5:52 AM EDT [facility] Blood WHOLE BLOOD / Unknown 12/07/2024 5:51 AM EDT 12/07/2024 5:52 AM EDT Narrative [facility] - 12/07/2024 5:52 AM EDT Nurse Advisor ID is - [id number] Mary Carmen Mcfadden MD POINT OF CARE TEST ORDERABLES F inal Result [facility] [address] [place] [address], [facility] [phone] * Erythropoietin(SENDOUT) (12/07/2024 3:59 AM EDT) Erythropoietin 19 4 - 27 mU/mL 12/08/2024 2:30 PM EDT [employer] Comment: INTERPRETIVE INFORMATION: Erythropoietin Normal serum concentrations [...] may benefit from therapy with recombinant EPO ([id number] [id number]). Performed By: [facility] [address] [place] [id number] [employer] Attendant: Lalo Mortensen MD, PhD CLIA Number: [id number] Blood Venipuncture / Unknown 12/07/2024 3:59 AM EDT 12/07/2024 4:11 AM EDT us Ariel Mills MD LAB BLOOD ORDERABLES Final Res ult [address] [phone] * Ammonia (12/07/2024 3:59 AM EDT) Ammonia 44 18 - 72 mol/L 12/07/2024 4:37 AM EDT [facility] Blood Venipuncture / Unknown 12/07/2024 3:59 AM EDT 12/07/2024 4:22 AM EDT us Timothy Bai MD LAB BLOOD ORDERABLES Final Result [facility] [address] [place] [address] * (ABNORMAL) Comprehensive Metabolic Panel (12/07/2024 3:59 AM EDT) Sodium 146(H) 136 - 145 meq/L 12/07/2024 4:52 AM EDT [facility] Potassium 3.8 3.4 - 5.1 meq/L 12/07/2024 4:52 AM EDT [facility] Chloride 118(H) 98 - 112 meq/L 12/07/2024 4:52 AM EDT [facility] CO2 20(L) 22 - 29 meq/L 12/07/2024 4:52 AM EDT [facility] Calcium 8.4 8.4 - 10.2 mg/dL 12/07/2024 4:52 AM EDT [facility] Glucose 166(H) 82 - 115 mg/dL 12/07/2024 4:52 AM EDT [facility] BUN 72.9(H) 9.8 - 20.1 mg/dL 12/07/2024 4:52 AM [facility] Creatinine 3.13(H) 0.57 - 1.11 mg/dL 12/07/2024 4:52 AM [facility] BUN/Creatinine 23(H) 8 - 20 12/07/2024 4:52 AM [facility] eGFR (mL/min/1.73m2) 16(L) >=60 mL/min/1. 73m2 12/07/2024 4:52 AM [facility] Albumin 4.1 3.5 - 5.0 g/dL 12/07/2024 4:52 AM [facility] Alkaline Phosphatase 48 40 - 150 U/L 12/07/2024 4:52 AM [facility] ALT 9 <=34 U/L 12/07/2024 4:52 AM [facility] Comment: ALT2 reagent used for testing does not contain P5P supplementation and therefore may miss ALT elevations in patients with B6 deficiency. This population may be as high as 10% in the [place], with risk factors including malabsorption, drug interactions, and alcoholic hepatitis. AST 24 11 - 34 U/L 12/07/2024 4:52 AM [facility] Comment: AST2 reagent used for testing does not contain P5P supplementation and therefore may miss AST elevations in patients with B6 deficiency. This population may be as high as 10% in the [place], with risk factors including malabsorption, drug interactions, and alcoholic hepatitis. Total Bilirubin 0.9 0.2 - 1.2 mg/dL 12/07/2024 4:52 AM [facility] Protein, Total 6.4 6.4 - 8.3 g/dL 12/07/2024 4:52 AM [facility] Globulin 2.3(L) 2.5 - 4.1 g/dL 12/07/2024 4:52 AM [facility] Anion Gap 12 4 - 12 12/07/2024 4:52 AM [facility] A/G Ratio 1.8 0.7 - 1.9 12/07/2024 4:52 AM [facility] Osmolality Calc 315.8 mOsm/kg 4:52 AM [facility] Blood Venipuncture / Unknown 12/07/2024 3:59 AM EDT 12/07/2024 4:09 AM EDT Timothy Bai MD LAB BLOOD ORDERABLES Final Result Performing Organization Address [facility]/ZIP Co de Phone Number [facility] [address] [phone] * Magnesium (12/07/2024 3:59 AM EDT) Magnesium 2.4 1.6 - 2.6 mg/dL 12/07/2024 4:52 AM EDT [facility] Blood Venipuncture / Unknown 12/07/2024 3:59 AM EDT 12/07/2024 4:09 AM EDT Timothy Bai MD LAB BLOOD ORDERABLES Final Result Performing Organization Address [facility] Co de Phone Number [facility] [address] [phone] * (ABNORMAL) CBC - Hemogram (SJ-BKR) (12/07/2024 3:59 AM EDT) WBC 3.5(L) 4.0 - 10.0 K/ L 12/07/2024 4:31 AM EDT [facility] RBC 2.58(L) 3.93 - 5.22 M/ L 12/07/2024 4:31 AM EDT [facility] Hemoglobin 7.9(L) 11.2 - 15.7 GM/DL 12/07/2024 4:31 AM EDT [facility] Hematocrit 25.6(L) 34.1 - 44.9 % 12/07/2024 4:31 AM EDT [facility] MCV 99(H) 79 - 95 fL 12/07/2024 4:31 AM EDT [facility] MCH 30.6 25.6 - 32.2 pg 12/07/2024 4:31 AM EDT [facility] MCHC 30.9(L) 32.2 - 35.5 GM/DL 12/07/2024 4:31 AM EDT [facility] RDW 17.4(H) 11.7 - 14.4 % 12/07/2024 4:31 AM EDT [facility] Platelets 54(L) 140 - 375 K/CU MM 12/07/2024 4:31 AM EDT [facility] MPV 12.2 9.4 - 12.3 fL 12/07/2024 4:31 AM EDT [facility] Blood Venipuncture / Unknown 12/07/2024 3:59 AM EDT 12/07/2024 4:09 AM EDT us Timothy Bai MD LAB BLOOD ORDERABLES Final Result Performing Organization Address [facility] Co de Phone Number [facility] [address] [phone] * (ABNORMAL) Glucose, Nova Meter (12/06/2024 7:26 PM EDT) [facility] Signature POC-GLUCOSE 170(H) 70 - 110 mg/dL 12/06/2024 7:27 PM EDT [facility] Comment: In the event of poor peripheral blood flow, venous or arterial blood should be used due to the potential of erroneous results. Notified Nurse RBV Nurse Advisor [phone] 12/06/2024 7:27 PM EDT [facility] Blood WHOLE BLOOD / Unknown 12/06/2024 7:26 PM EDT 12/06/2024 7:27 PM EDT Narrative [facility] - 12/06/2024 7:27 PM EDT Nurse Advisor ID is - [phone] us Mary Carmen Mcfadden MD POINT OF CARE TEST ORDERABLES F inal Result Performing Organization Address City/[facility]/ZIP Co de Phone Number [facility] [address] [phone] * (ABNORMAL) Glucose, Nova Meter (12/06/2024 4:06 PM EDT) POC-GLUCOSE 134(H) 70 - 110 mg/dL 12/06/2024 4:07 PM EDT [facility] Comment: In the event of poor peripheral blood flow, venous or arterial blood should be used due to the potential of erroneous results. Notified Nurse RBV Nurse Advisor [phone] 12/06/2024 4:07 PM EDT [facility] Blood WHOLE BLOOD / Unknown 12/06/2024 4:06 PM EDT 12/06/2024 4:07 PM EDT Narrative [facility] - 12/06/2024 4:07 PM EDT Nurse Advisor ID is - [phone] us Mary Carmen Mcfadden MD POINT OF CARE TEST ORDERABLES F inal Result Performing Organization Address [facility]/ZIP Co de Phone Number [facility] [address] [phone] * ECG 12 lead (12/06/2024 1:16 PM EDT) VENTRICULAR RATE EKG/MIN 90 BPM GE MUSE ATRIAL RATE (MCT) 90 BPM GE MUSE IL Interval 142 ms GE MUSE QRS-INTERVAL (MSEC) 92 ms GE MUSE QT Interval 378 ms GE MUSE QTC Interval 462 ms GE MUSE P [place] 28 degrees GE MUSE R AXIS (MCT) -4 degrees GE MUSE T Wave [place] 21 degrees GE MUSE [place] Diagnosis Normal sinus rhythm Septal infarct , age undetermined Confirmed by DEYSI FOSS M.D. ([id number]) on 12/07/2024 7:40:21 PM GE MUSE 12/06/2024 1:16 PM EDT 12/07/2024 7:40 PM EDT us Deysi Foss MD ECG ORDERABLES Final Result Performing Organization Address City/[facility]/ZIP Co de Phone Number [facility] * (ABNORMAL) Glucose, Nova Meter (12/06/2024 10:36 AM EDT) POC-GLUCOSE 150(H) 70 - 110 mg/dL 12/06/2024 10:37 AM EDT [facility] Comment: In the event of poor peripheral blood flow, venous or arterial blood should be used due to the potential of erroneous results. Notified Nurse RBV Nurse Advisor [phone] 12/06/2024 10:37 AM EDT [facility] Blood WHOLE BLOOD / Unknown 12/06/2024 10:36 AM EDT 12/06/2024 10:37 AM EDT Narrative [facility] - 12/06/2024 10:37 AM EDT Nurse Advisor ID is - [id number] us Mary Carmen Mcfadden MD POINT OF CARE TEST ORDERABLES F inal Result [facility] [address] [phone] * XR chest AP portable (12/06/2024 7:34 [...] - 110 mg/dL 12/06/2024 5:27 AM EDT [facility] Comment: In the event of poor peripheral blood flow, venous or arterial blood should be used due to the potential of erroneous results. Notified Nurse RBV Nurse Advisor [phone] 12/06/2024 5:27 AM EDT [facility] Blood WHOLE BLOOD / Unknown 12/06/2024 5:26 AM EDT 12/06/2024 5:27 AM EDT Narrative [facility] - 12/06/2024 5:27 AM EDT Nurse Advisor ID is - [phone] us Timothy Bai MD POINT OF CARE TEST ORDERAB LES Final Result Performing Organization Address City/[facility]/ZIP Co de Phone Number [facility] [address] [phone] * (ABNORMAL) Ferritin (12/06/2024 3:13 AM EDT) Ferritin 256.82(H) 4.63 - 204.00 ng/mL 12/06/2024 8:25 AM EDT [facility] Blood Venipuncture / Unknown 12/06/2024 3:13 AM EDT 12/06/2024 3:50 AM EDT us Ariel Mills MD LAB BLOOD ORDERABLES Final Res ult [facility] [address] [phone] * Ammonia (12/06/2024 3:13 AM EDT) Ammonia 47 18 - 72 mol/L 12/06/2024 4:48 AM EDT [facility] Blood Venipuncture / Unknown 12/06/2024 3:13 AM EDT 12/06/2024 3:51 AM EDT us Timothy Bai MD LAB BLOOD ORDERABLES Final Result [facility] [address] [place] [phone], [facility] [phone] * (ABNORMAL) Comprehensive Metabolic Panel (12/06/2024 3:13 AM EDT) Sodium 146(H) 136 - 145 meq/L 12/06/2024 4:26 AM EDT [facility] Potassium 3.9 3.4 - 5.1 meq/L 12/06/2024 4:26 AM EDT [facility] Chloride 116(H) 98 - 112 meq/L 12/06/2024 4:26 AM EDT [facility] CO2 20(L) 22 - 29 meq/L 12/06/2024 4:26 AM EDT [facility] Calcium 8.6 8.4 - 10.2 mg/dL 12/06/2024 4:26 AM EDT [facility] Glucose 149(H) 82 - 115 mg/dL 12/06/2024 4:26 AM EDT [facility] BUN 63.3(H) 9.8 - 20.1 mg/dL 12/06/2024 4:26 AM EDT [facility] Creatinine 3.37(H) 0.57 - 1.11 mg/dL 12/06/2024 4:26 AM EDT [facility] BUN/Creatinine 19 8 - 20 12/06/2024 4:26 AM EDT [facility] eGFR (mL/min/1.73m2) 15(L) >=60 mL/min/1. 73m2 12/06/2024 4:26 AM EDT [facility] Albumin 4.6 3.5 - 5.0 g/dL 12/06/2024 4:26 AM EDT [facility] Alkaline Phosphatase 47 40 - 150 U/L 12/06/2024 4:26 AM EDT [facility] ALT 11 <=34 U/L 12/06/2024 4:26 AM EDT [facility] Comment: ALT2 reagent used for testing does not contain P5P supplementation and therefore may miss ALT elevations in patients with B6 deficiency. This population may be as high as 10% in the [place], with risk factors including malabsorption, drug interactions, and alcoholic hepatitis. AST 21 11 - 34 U/L 12/06/2024 4:26 AM EDT [facility] Comment: AST2 reagent used for testing does not contain P5P supplementation and therefore may miss AST elevations in patients with B6 deficiency. This population may be as high as 10% in the [place], with risk factors including malabsorption, drug interactions, and alcoholic hepatitis. Total Bilirubin 1.2 0.2 - 1.2 mg/dL 12/06/2024 4:26 AM EDT [facility] Protein, Total 7.0 6.4 - 8.3 g/dL 12/06/2024 4:26 AM EDT [facility] Globulin 2.4(L) 2.5 - 4.1 g/dL 12/06/2024 4:26 AM EDT [facility] Anion Gap 14(H) 4 - 12 12/06/2024 4:26 AM EDT [facility] A/G Ratio 1.9 0.7 - 1.9 12/06/2024 4:26 AM EDT [facility] Osmolality Calc 311.4 mOsm/kg 4:26 AM EDT [facility] Blood Venipuncture / Unknown 12/06/2024 3:13 AM EDT 12/06/2024 3:50 AM EDT us Timothy Bai MD LAB BLOOD ORDERABLES Final Result [facility] [address] [phone] * Magnesium (12/06/2024 3:13 AM EDT) Magnesium 2.4 1.6 - 2.6 mg/dL 12/06/2024 4:26 AM EDT [facility] Blood Venipuncture / Unknown 12/06/2024 3:13 AM EDT 12/06/2024 3:50 AM EDT us Timothy Bai MD LAB BLOOD ORDERABLES Final Result [facility] [address] [phone] * (ABNORMAL) CBC - Hemogram (SJ-BKR) (12/06/2024 3:13 AM EDT) WBC 7.0 4.0 - 10.0 K/ L 12/06/2024 4:10 AM EDT [facility] RBC 2.83(L) 3.93 - 5.22 M/ L 12/06/2024 4:10 AM EDT [facility] Hemoglobin 8.7(L) 11.2 - 15.7 GM/DL 12/06/2024 4:10 AM EDT [facility] Hematocrit 28.2(L) 34.1 - 44.9 % 12/06/2024 4:10 AM EDT [facility] MCV 100(H) 79 - 95 fL 12/06/2024 4:10 AM EDT [facility] MCH 30.7 25.6 - 32.2 pg 12/06/2024 4:10 AM EDT [facility] MCHC 30.9(L) 32.2 - 35.5 GM/DL 12/06/2024 4:10 AM EDT [facility] RDW 17.2(H) 11.7 - 14.4 % 12/06/2024 4:10 AM EDT [facility] Platelets 80(L) 140 - 375 K/CU MM 12/06/2024 4:10 AM EDT [facility] MPV 11.7 9.4 - 12.3 fL 12/06/2024 4:10 AM EDT [facility] Blood Venipuncture / Unknown 12/06/2024 3:13 AM EDT 12/06/2024 3:53 AM EDT Timothy Bai MD LAB BLOOD ORDERABLES Final Result Performing Organization Address City/[facility]/ZIP Co de Phone Number [facility] [address] [phone] * (ABNORMAL) Glucose, Nova Meter (12/05/2024 7:21 PM EDT) POC-GLUCOSE 145(H) 70 - 110 mg/dL 12/05/2024 7:22 PM EDT [facility] Comment: In the event of poor peripheral blood flow, venous or arterial blood should be used due to the potential of erroneous results. Notified Nurse RBV Nurse Advisor [phone] 12/05/2024 7:22 PM EDT [facility] Blood WHOLE BLOOD / Unknown 12/05/2024 7:21 PM EDT 12/05/2024 7:22 PM EDT Narrative [facility] - 12/05/2024 7:22 PM EDT Nurse Advisor ID is - [id number] us Timothy Bai MD POINT OF CARE TEST ORDERAB LES Final Result Performing Organization Address [facility] Co de Phone Number [facility] [address] [place] [address], [facility] [phone] * (ABNORMAL) Glucose, Nova Meter (12/05/2024 5:01 PM EDT) POC-GLUCOSE 140(H) 70 - 110 mg/dL 12/05/2024 5:02 PM EDT [facility] Comment: In the event of poor peripheral blood flow, venous or arterial blood should be used due to the potential of erroneous results. Notified Nurse RBV Nurse Advisor [phone] 12/05/2024 5:02 PM EDT [facility] Blood WHOLE BLOOD / Unknown 12/05/2024 5:01 PM EDT 12/05/2024 5:02 PM EDT Narrative [facility] - 12/05/2024 5:02 PM EDT Nurse Advisor ID is - [id number] Timothy Bai MD POINT OF CARE TEST ORDERAB LES Final Result Performing Organization Address City/[facility]/ZIP Co de Phone Number [facility] [address] [place], [place] [address], [facility] [phone] * (ABNORMAL) Hemoglobin (12/05/2024 3:36 PM EDT) Pathologist [facility] Hemoglobin 8.1(L) 11.2 - 15.7 GM/DL 12/05/2024 3:57 PM EDT [facility] Blood Venipuncture / Unknown 12/05/2024 3:36 PM EDT 12/05/2024 3:47 PM EDT us Timothy Bai MD LAB BLOOD ORDERABLES Final Result Performing Organization Address [facility] Co de Phone Number [facility] [address] [place] [address], [facility] [phone] * (ABNORMAL) Glucose, Nova Meter (12/05/2024 10:23 AM EDT) [facility] POC-GLUCOSE 141(H) 70 - 110 mg/dL 12/05/2024 10:24 AM EDT [facility] Comment: In the event of poor peripheral blood flow, venous or arterial blood should be used due to the potential of erroneous results. Notified Nurse RBV Protocols Followed Nurse Advisor [phone] 12/05/2024 10:24 AM EDT [facility] Blood WHOLE BLOOD / Unknown 12/05/2024 10:23 AM EDT 12/05/2024 10:24 AM EDT Narrative [facility] - 12/05/2024 10:24 AM EDT Nurse Advisor ID is - [phone] us Timothy Bai MD POINT OF CARE TEST ORDERAB LES Final Result Performing Organization Address [facility] Co de Phone Number [facility] [address] [place] [address], [facility] [phone] * (ABNORMAL) Glucose, Nova Meter (12/05/2024 8:10 AM EDT) POC-GLUCOSE 123(H) 70 - 110 mg/dL 12/05/2024 8:27 AM EDT [facility] Comment: In the event of poor peripheral blood flow, venous or arterial blood should be used due to the potential of erroneous results. Notified Nurse RBV Nurse Advisor [phone] 12/05/2024 8:27 AM EDT [facility] Blood WHOLE BLOOD / Unknown 12/05/2024 8:10 AM EDT 12/05/2024 8:27 AM EDT Narrative [facility] - 12/05/2024 8:27 AM EDT Nurse Advisor ID is - [phone] us Timothy Bai MD POINT OF CARE TEST ORDERAB LES Final Result Performing Organization Address [facility]/ZIP Co de Phone Number [facility] [address] [phone] * (ABNORMAL) Hemoglobin (12/05/2024 8:00 AM EDT) Hemoglobin 8.2(L) 11.2 - 15.7 GM/DL 12/05/2024 8:21 AM EDT [facility] Blood Venipuncture / Unknown 12/05/2024 8:00 AM EDT 12/05/2024 8:06 AM EDT us Timothy Bai MD LAB BLOOD ORDERABLES Final Result Performing Organization Address City/[facility]/ZIP Co de Phone Number [facility] [address] [phone] * Ammonia (12/05/2024 3:20 AM EDT) Ammonia 41 18 - 72 mol/L 12/05/2024 4:02 AM EDT [facility] Blood Venipuncture / Unknown 12/05/2024 3:20 AM EDT 12/05/2024 3:24 AM EDT us Timothy Bai MD LAB BLOOD ORDERABLES Final Result [facility] [address] [phone] * (ABNORMAL) Comprehensive Metabolic Panel (12/05/2024 3:20 AM EDT) Sodium 146(H) 136 - 145 meq/L 12/05/2024 4:11 AM EDT [facility] Potassium 3.6 3.4 - 5.1 meq/L 12/05/2024 4:11 AM EDT [facility] Chloride 117(H) 98 - 112 meq/L 12/05/2024 4:11 AM EDT [facility] CO2 20(L) 22 - 29 meq/L 12/05/2024 4:11 AM EDT [facility] Calcium 8.3(L) 8.4 - 10.2 mg/dL 12/05/2024 4:11 AM EDT [facility] Glucose 148(H) 82 - 115 mg/dL 12/05/2024 4:11 AM EDT [facility] BUN 59.4(H) 9.8 - 20.1 mg/dL 12/05/2024 4:11 AM EDT [facility] Creatinine 3.14(H) 0.57 - 1.11 mg/dL 12/05/2024 4:11 AM T [facility] BUN/Creatinine 19 8 - 20 12/05/2024 4:11 AM T [facility] eGFR (mL/min/1.73m2) 16(L) >=60 mL/min/1. 73m2 12/05/2024 4:11 AM EDT [facility] Albumin 4.3 3.5 - 5.0 g/dL 12/05/2024 4:11 AM [facility] Alkaline Phosphatase 44 40 - 150 U/L 12/05/2024 4:11 AM EDT [facility] ALT 8 <=34 U/L 12/05/2024 4:11 AM EDT [facility] Comment: ALT2 reagent used for testing does not contain P5P supplementation and therefore may miss ALT elevations in patients with B6 deficiency. This population may be as high as 10% in the [place], with risk factors including malabsorption, drug interactions, and alcoholic hepatitis. AST 23 11 - 34 U/L 12/05/2024 4:11 AM EDT [facility] Comment: AST2 reagent used for testing does not contain P5P supplementation and therefore may miss AST elevations in patients with B6 deficiency. This population may be as high as 10% in the [place], with risk factors including malabsorption, drug interactions, and alcoholic hepatitis. Total Bilirubin 1.2 0.2 - 1.2 mg/dL 12/05/2024 4:11 AM EDT [facility] Protein, Total 6.4 6.4 - 8.3 g/dL 12/05/2024 4:11 AM EDT [facility] Globulin 2.1(L) 2.5 - 4.1 g/dL 12/05/2024 4:11 AM EDT [facility] Anion Gap 13(H) 4 - 12 12/05/2024 4:11 AM EDT [facility] A/G Ratio 2.0(H) 0.7 - 1.9 12/05/2024 4:11 AM EDT [facility] Osmolality Calc 310.0 mOsm/kg 4:11 AM EDT [facility] Blood Venipuncture / Unknown 12/05/2024 3:20 AM EDT 12/05/2024 3:24 AM EDT us Timothy Bai MD LAB BLOOD ORDERABLES Final Result Performing Organization Address City/State/[facility] Co de Phone Number [facility] [address] [phone] * Magnesium (12/05/2024 3:20 AM EDT) Magnesium 2.3 1.6 - 2.6 mg/dL 12/05/2024 4:11 AM EDT [facility] Blood Venipuncture / Unknown 12/05/2024 3:20 AM EDT 12/05/2024 3:24 AM EDT us Timothy Bai MD LAB BLOOD ORDERABLES Final Result [facility] [address] [phone] * (ABNORMAL) CBC - Hemogram (SJ-BKR) (12/05/2024 3:20 AM EDT) WBC 4.2 4.0 - 10.0 K/ L 12/05/2024 3:34 AM EDT [facility] RBC 2.64(L) 3.93 - 5.22 M/ L 12/05/2024 3:34 AM EDT [facility] Hemoglobin 8.2(L) 11.2 - 15.7 GM/DL 12/05/2024 3:34 AM EDT [facility] Hematocrit 25.9(L) 34.1 - 44.9 % 12/05/2024 3:34 AM EDT [facility] MCV 98(H) 79 - 95 fL 12/05/2024 3:34 AM EDT [facility] MCH 31.1 25.6 - 32.2 pg 12/05/2024 3:34 AM EDT [facility] MCHC 31.7(L) 32.2 - 35.5 GM/DL 12/05/2024 3:34 AM EDT [facility] RDW 17.1(H) 11.7 - 14.4 % 12/05/2024 3:34 AM EDT [facility] Platelets 60(L) 140 - 375 K/CU MM 12/05/2024 3:34 AM EDT [facility] MPV 11.3 9.4 - 12.3 fL 12/05/2024 3:34 AM EDT [facility] Blood Venipuncture / Unknown 12/05/2024 3:20 AM EDT 12/05/2024 3:24 AM EDT Timothy Bai MD LAB BLOOD ORDERABLES Final Result [facility] [address] [phone] * (ABNORMAL) Hemoglobin (12/04/2024 11:54 PM EDT) [facility] Hemoglobin 8.7(L) 11.2 - 15.7 GM/DL 12/05/2024 12:07 AM EDT [facility] Blood Venipuncture / Unknown 12/04/2024 11:54 PM EDT 12/04/2024 11:59 PM EDT us Timothy Bai MD LAB BLOOD ORDERABLES Final Result [facility] [address] [place] [address], [facility] [phone] * (ABNORMAL) Glucose, Nova Meter (12/04/2024 10:20 PM EDT) [facility] POC-GLUCOSE 147(H) 70 - 110 mg/dL 12/04/2024 10:22 PM EDT [facility] Comment: In the event of poor peripheral blood flow, venous or arterial blood should be used due to the potential of erroneous results. Protocols Followed Nurse Advisor [phone] 12/04/2024 10:22 PM EDT [facility] Blood WHOLE BLOOD / Unknown 12/04/2024 10:20 PM EDT 12/04/2024 10:21 PM EDT Narrative [facility] - 12/04/2024 10:22 PM EDT Nurse Advisor ID is - [phone] us Timothy Bai MD POINT OF CARE TEST ORDERAB LES Final Result [facility] [address] [place] [address], [facility] [phone] * ECG 12 lead (12/04/2024 8:08 PM EDT) [facility] SYSTOLIC BLOOD PRESSURE (MCT) 133 mmHg GE MUSE DIASTOLIC BLOOD PRESSURE (MCT) 61 mmHg GE MUSE VENTRICULAR RATE EKG/MIN 85 BPM GE MUSE ATRIAL RATE (MCT) 85 BPM GE MUSE IL Interval 140 ms GE MUSE QRS-INTERVAL (MSEC) 94 ms GE MUSE QT Interval 426 ms GE MUSE QTC Interval 506 ms GE MUSE P [place] 44 degrees GE MUSE R AXIS (MCT) 27 degrees GE MUSE T Wave [place] -27 degrees GE MUSE [place] Diagnosis Normal sinus rhythm Nonspecific T wave abnormality Abnormal ECG Confirmed by DEYSI FOSS M.D. ([id number]) on 12/05/2024 1:52:09 PM GE MUSE 12/04/2024 8:08 PM EDT 12/05/2024 1:52 PM EDT us Timothy Bai MD ECG ORDERABLES Final Resu lt GE MUSE * (ABNORMAL) Glucose, Nova Meter (12/04/2024 4:50 PM EDT) Pathologist [facility] POC-GLUCOSE 137(H) 70 - 110 mg/dL 12/04/2024 4:51 PM EDT [facility] Comment: In the event of poor peripheral blood flow, venous or arterial blood should be used due to the potential of erroneous results. Protocols Followed Nurse Advisor [phone] 12/04/2024 4:51 PM EDT [facility] Blood WHOLE BLOOD / Unknown 12/04/2024 4:50 PM EDT 12/04/2024 4:51 PM EDT Narrative [facility] - 12/04/2024 4:51 PM EDT Nurse Advisor ID is - [id number] Timothy Bai MD POINT OF CARE TEST ORDERAB LES Final Result [facility] [address] [phone] * (ABNORMAL) Hemoglobin (12/04/2024 4:27 PM EDT) Pathologist [facility] Hemoglobin 8.9(L) 11.2 - 15.7 GM/DL 12/04/2024 4:36 PM EDT [facility] Blood Venipuncture / Unknown 12/04/2024 4:27 PM EDT 12/04/2024 4:31 PM EDT us Timothy Bai MD LAB BLOOD ORDERABLES Final Result [facility] [address] [place] [id number] [phone] * (ABNORMAL) Basic Metabolic Panel (12/04/2024 10:53 AM EDT) Sodium 146(H) 136 - 145 meq/L 12/04/2024 11:17 AM EDT [facility] Potassium 3.6 3.4 - 5.1 meq/L 12/04/2024 11:17 AM T [facility] CO2 20(L) 22 - 29 meq/L 12/04/2024 11:17 AM EDT [facility] Chloride 116(H) 98 - 112 meq/L 12/04/2024 11:17 AM T [facility] Glucose 137(H) 82 - 115 mg/dL 12/04/2024 11:17 AM EDT [facility] BUN 61.1(H) 9.8 - 20.1 mg/dL 12/04/2024 11:17 AM T [facility] Creatinine 3.38(H) 0.57 - 1.11 mg/dL 12/04/2024 11:17 AM T [facility] BUN/Creatinine 18 8 - 20 12/04/2024 11:17 AM T [facility] Calcium 8.5 8.4 - 10.2 mg/dL 12/04/2024 11:17 AM T [facility] Anion Gap 14(H) 4 - 12 12/04/2024 11:17 AM T [facility] eGFR (mL/min/1.73m2) 15(L) >=60 mL/min/1.7 3m2 12/04/2024 11:17 AM T [facility] Osmolality Calc 310.0 mOsm/kg 11:17 AM T [facility] Blood Venipuncture / Unknown 12/04/2024 10:53 AM EDT 12/04/2024 10:57 AM EDT us Timothy Bai MD LAB BLOOD ORDERABLES Final Result Performing Organization Address [facility]/ZIP Co de Phone Number [facility] [address] [phone] * (ABNORMAL) Glucose, Nova Meter (12/04/2024 10:52 AM EDT) [facility] POC-GLUCOSE 136(H) 70 - 110 mg/dL 12/04/2024 10:57 AM EDT [facility] Comment: In the event of poor peripheral blood flow, venous or arterial blood should be used due to the potential of erroneous results. Notified Nurse RBV Nurse Advisor [phone] 12/04/2024 10:57 AM EDT [facility] Blood WHOLE BLOOD / Unknown 12/04/2024 10:52 AM EDT 12/04/2024 10:57 AM EDT Narrative [facility] - 12/04/2024 10:57 AM EDT Nurse Advisor ID is - [phone] us Timothy Bai MD POINT OF CARE TEST ORDERAB LES Final Result Performing Organization Address [facility] Co de Phone Number [facility] [address] [phone] * (ABNORMAL) CBC with automated diff (12/04/2024 8:15 AM EDT) [facility] WBC 4.1 4.0 - 10.0 K/ L 12/04/2024 9:56 AM EDT [facility] RBC 2.90(L) 3.93 - 5.22 M/ L 12/04/2024 9:56 AM EDT [facility] Hemoglobin 8.8(L) 11.2 - 15.7 GM/DL 12/04/2024 9:56 AM EDT [facility] Hematocrit 29.0(L) 34.1 - 44.9 % 12/04/2024 9:56 AM EDT [facility] MCV 100(H) 79 - 95 fL 12/04/2024 9:56 AM EDT [facility] MCH 30.3 25.6 - 32.2 pg 12/04/2024 9:56 AM EDT [facility] MCHC 30.3(L) 32.2 - 35.5 GM/DL 12/04/2024 9:56 AM EDT [facility] RDW 17.7(H) 11.7 - 14.4 % 12/04/2024 9:56 AM EDT [facility] Platelets 65(L) 140 - 375 K/CU MM 12/04/2024 9:56 AM EDT [facility] MPV 10.8 9.4 - 12.3 fL 12/04/2024 9:56 AM EDT [facility] % Neutros 79(H) 34 - 71 % 12/04/2024 9:56 AM EDT [facility] % Lymphs 12(L) 19 - 52 % 12/04/2024 9:56 AM EDT [facility] % Monos 9 5 - 13 % 12/04/2024 9:56 AM EDT [facility] % Eos 0(L) 1 - 6 % 12/04/2024 9:56 AM EDT [facility] % Baso 0 0 - 1 % 12/04/2024 9:56 AM EDT [facility] NRBC Absolute <0.01 0 - 0.012 K/ul 12/04/2024 9:56 AM EDT [facility] # Neutros 3.25 1.56 - 6.13 K/ L 12/04/2024 9:56 AM EDT [facility] # Lymphs 0.48(L) 1.18 - 3.74 K/ L 12/04/2024 9:56 AM EDT [facility] # Monos 0.35 0.24 - 0.86 K/ L 12/04/2024 9:56 AM EDT [facility] # Eos <0.03(L) 0.04 - 0.36 K/ L 12/04/2024 9:56 AM EDT [facility] # Baso <0.03 0.01 - 0.08 K/ L 12/04/2024 9:56 AM EDT [facility] Immature Granulocytes-Re lative 0.50(H) 0.01 - 0.43 % 12/04/2024 9:56 AM EDT [facility] # IG <0.03 0.00 - 0.03 K/uL 12/04/2024 9:56 AM EDT [facility] Blood Venipuncture / Unknown 12/04/2024 8:15 AM EDT 12/04/2024 8:32 AM EDT Narrative [facility] - 12/04/2024 9:56 AM EDT When [...] Bai MD LAB BLOOD ORDERABLES Final Result [facility] [address] [phone] * (ABNORMAL) Hemoglobin (12/04/2024 8:15 AM EDT) [facility] Hemoglobin 9.0(L) 11.2 - 15.7 GM/DL 12/04/2024 8:36 AM EDT [facility] Blood Venipuncture / Unknown 12/04/2024 8:15 AM EDT 12/04/2024 8:32 AM EDT Timothy Bai MD LAB BLOOD ORDERABLES Final Result [facility] [address] [phone] * ANCA Vasculitis Profile(SENDOUT) (12/04/2024 8:15 AM EDT) Pathologist [facility] Myeloperoxidase (MPO) Ab, IgG 0 0 - 19 AU/mL 12/07/2024 8:52 AM EDT [employer] Comment: INTERPRETIVE INFORMATION: Myeloperoxidase Abs, IgG 19 AU/mL or Less ......... Negative 20-25 AU/mL .............. Equivocal 26 AU/mL or Greater ...... Positive Approximately 90% of patients with a P-ANCA pattern by IFA have antibodies specific for MPO. Serine Proteinase 3 (PR3) Ab, IgG 0 0 - 19 AU/mL 12/07/2024 8:52 AM EDT [facility] [employer] Comment: INTERPRETIVE INFORMATION: Serine Proteinase 3, IgG 19 AU/mL or Less ........ Negative 20-25 AU/mL ............. Equivocal 26 AU/mL or Greater ..... Positive Approximately 85% of patients with a C-ANCA pattern by IFA have antibodies specific for PR3. ANCA IFA Titer <1:20 <1:20 12/07/2024 8:52 AM EDT [facility] ANCA IFA Pattern None Detected None Detected 12/07/2024 8:52 AM EDT [facility] [employer] Comment: INTERPRETIVE INFORMATION: ANCA IFA Pattern Neutrophil Cytoplasmic Antibodies (C-ANCA = granular cytoplasmic staining, P-ANCA = perinuclear staining) are found in the serum of over 90 percent of patients with certain necrotizing systemic vasculitides, and usually in less than 5 percent of patients with collagen vascular disease or arthritis. Performed By: [facility] [address] [place] [address] Apprentice Plant Attendant: Lalo Mortensen MD, PhD CLIA Number: [id number] Blood Venipuncture / Unknown 12/04/2024 8:15 AM EDT 12/04/2024 8:32 AM EDT us Hema Cervantes MD LAB BLOOD ORDERABLES Final Re sult [employer] [address] [place] [address], [facility] [phone] * JEANA Reflexive Profile(SENDOUT) (12/04/2024 8:15 AM EDT) Anti-Nuclear Ab (JEANA), IgG by SHARON None Detected None Detected 12/06/2024 3:51 PM EDT [employer] Comment: No Anti-Nuclear Antibodies (JEANA) detected by SHARON. The Extractable Nuclear Antigen Antibodies (COMMAND CENTER OFFICER, [place], SSA 52, SSA 60, Scleroderma, Lilia-1 and SSB) and Double Stranded DNA (dsDNA) Antibody, IgG will not be performed. If suspicion of connective tissue disease is strong, and JEANA is negative by SHARON, consider testing for JEANA by IFA ([id number]). INTERPRETIVE INFORMATION: Anti-Nuclear Antibodies (JEANA), IgG by SHARON Antinuclear Antibodies (JEANA), IgG by SHARON: JEANA specimens are screened using enzyme-linked immunosorbent assay (SHARON) methodology. All SHARON results reported as Detected are further tested by indirect fluorescent assay (IFA) using HEp-2 substrate with an IgG-specific conjugate. The JEANA SHARON screen is designed to detect antibodies against dsDNA, histones, SS-A (Ro), SS-B (La), [place], [place]/COMMAND CENTER OFFICER, Scl-70, Lilia-1, centromeric proteins, other antigens extracted from the HEp-2 cell nucleus. JEANA SHARON assays have been reported to have lower sensitivities than JEANA IFA for systemic autoimmune rheumatic diseases (SARD). Negative results do not necessarily rule out SARD. Performed By: [facility] [address] [place], [place] [id number] Apprentice Plant Attendant: Lalo Mortensen MD, PhD CLIA Number: [id number] Blood Venipuncture / Unknown 12/04/2024 8:15 AM EDT 12/04/2024 8:32 AM EDT us Hema Cervantes MD LAB BLOOD ORDERABLES Final Re sult [employer] [address] [place] [address], [facility] [phone] * XR chest AP portable (12/04/2024 6:49 [...] by Regina Villasenor PA-C. Kirsty Tuttle APRN [facility] ORDER LONNY Final Result * (ABNORMAL) Blood gas, arterial (12/04/2024 6:34 AM EDT) pH, Arterial 7.29(L) 7.35 - 7.45 12/04/2024 7:10 AM EDT [facility] pCO2, Arterial 43 35 - 45 mm Hg 12/04/2024 7:10 AM EDT [facility] pO2, Arterial 106(H) 80 - 100 mm Hg 12/04/2024 7:10 AM EDT [facility] HCO3, Arterial 21 20 - 26 mmol/L 12/04/2024 7:10 AM EDT [facility] Base Excess, Arterial -5.2(L) -2.0 - 2.0 mmol/L 12/04/2024 7:10 AM EDT [facility] O2 Sat, Arterial 98.8 95.0 - 100.0 % 12/04/2024 7:10 AM EDT [facility] CTO2 ARTERIAL 11.9 mmol/L 12/04/2024 7:10 AM EDT [facility] THB ARTERIAL 8.6(L) 12.0 - 18.0 g/dL 12/04/2024 7:10 AM EDT [facility] COLLECTION SITE Right Brachial 12/04/2024 7:10 AM EDT [facility] Arterial Puncture Yes 12/04/2024 7:10 AM EDT [facility] Blood Gas O2 Delivery Device Cannula 12/04/2024 7:10 AM EDT [facility] Oxygen Flow Rate 3 12/05/19 7:10 AM EDT [facility] Blood Gas PT Temperature C 37.0 12/04/2024 7:10 AM EDT [facility] Sen's Test Not Applicable 12/05/19 7:10 AM EDT [facility] Critical Values Notification Critical Blood gas called to DAYANARA MATIAS . Results acknowledged/r ead back to [id number] and confirmed on 12/04/2024 07:09 12/04/2024 7:10 AM EDT [facility] ABG Number of Draw Attempts 1 12/04/2024 7:10 AM EDT [facility] FIO2 12/04/2024 7:10 AM EDT [facility] Blood Gas Temperature Corrected Results No No 12/04/2024 7:10 AM EDT [facility] Blood, Arterial 12/04/2024 6 :34 AM EDT 12/04/2024 7:10 AM EDT us Kirsty Tuttle HELPER COORDINATOR LAB BLOOD ORDERABLES Final R esult [facility] [address] [place] [address] * (ABNORMAL) Glucose, Nova Meter (12/04/2024 6:13 AM EDT) POC-GLUCOSE 155(H) 70 - 110 mg/dL 12/04/2024 6:14 AM EDT [facility] Comment: In the event of poor peripheral blood flow, venous or arterial blood should be used due to the potential of erroneous results. Protocols Followed Nurse Advisor [phone] 12/04/2024 6:14 AM EDT [facility] Blood WHOLE BLOOD / Unknown 12/04/2024 6:13 AM EDT 12/04/2024 6:14 AM EDT Narrative [facility] - 12/04/2024 6:14 AM EDT Nurse Advisor ID is - [phone] us Timothy Bai MD POINT OF CARE TEST ORDERAB LES Final Result [facility] [address] [phone] * (ABNORMAL) CBC with automated diff (12/04/2024 3:35 AM EDT) WBC 3.2(L) 4.0 - 10.0 K/ L 12/04/2024 3:55 AM EDT [facility] RBC 2.88(L) 3.93 - 5.22 M/ L 12/04/2024 3:55 AM EDT [facility] Hemoglobin 8.9(L) 11.2 - 15.7 GM/DL 12/04/2024 3:55 AM EDT [facility] Hematocrit 28.4(L) 34.1 - 44.9 % 12/04/2024 3:55 AM EDT [facility] MCV 99(H) 79 - 95 fL 12/04/2024 3:55 AM EDT [facility] MCH 30.9 25.6 - 32.2 pg 12/04/2024 3:55 AM EDT [facility] MCHC 31.3(L) 32.2 - 35.5 GM/DL 12/04/2024 3:55 AM EDT [facility] RDW 17.4(H) 11.7 - 14.4 % 12/04/2024 3:55 AM EDT [facility] Platelets 61(L) 140 - 375 K/CU MM 12/04/2024 3:55 AM EDT [facility] MPV 11.1 9.4 - 12.3 fL 12/04/2024 3:55 AM EDT [facility] % Neutros 80(H) 34 - 71 % 12/04/2024 3:55 AM EDT [facility] % Lymphs 12(L) 19 - 52 % 12/04/2024 3:55 AM EDT [facility] % Monos 8 5 - 13 % 12/04/2024 3:55 AM EDT [facility] % Eos 0(L) 1 - 6 % 12/04/2024 3:55 AM EDT [facility] % Baso 0 0 - 1 % 12/04/2024 3:55 AM EDT [facility] NRBC Absolute <0.01 0 - 0.012 K/ul 12/04/2024 3:55 AM EDT [facility] # Neutros 2.58 1.56 - 6.13 K/ L 12/04/2024 3:55 AM EDT [facility] # Lymphs 0.39(L) 1.18 - 3.74 K/ L 12/04/2024 3:55 AM EDT [facility] # Monos 0.25 0.24 - 0.86 K/ L 12/04/2024 3:55 AM EDT [facility] # Eos <0.03(L) 0.04 - 0.36 K/ L 12/04/2024 3:55 AM EDT [facility] # Baso <0.03 0.01 - 0.08 K/ L 12/04/2024 3:55 AM EDT [facility] Immature Granulocytes-Re lative 0.30 0.01 - 0.43 % 12/04/2024 3:55 AM EDT [facility] # IG <0.03 0.00 - 0.03 K/uL 12/04/2024 3:55 AM EDT [facility] Blood Venipuncture / Unknown 12/04/2024 3:35 AM EDT 12/04/2024 3:41 AM EDT Narrative [facility] - 12/04/2024 3:55 AM EDT When [...] ORDERABLES Final R esult Performing Organization Address [facility]/ZIP Co de Phone Number [facility] [address] [phone] * Ammonia (12/04/2024 3:35 AM EDT) Ammonia 30 18 - 72 mol/L 12/04/2024 3:57 AM EDT [facility] Blood Venipuncture / Unknown 12/04/2024 3:35 AM EDT 12/04/2024 3:41 AM EDT us Timothy Bai MD LAB BLOOD ORDERABLES Final Result Performing Organization Address [facility]/[place] Co de Phone Number [facility] [address] [phone] * Phosphorus (12/04/2024 3:34 AM EDT) Phosphorus 4.2 2.5 - 4.5 mg/dL 12/04/2024 4:04 AM EDT [facility] Blood Venipuncture / Unknown 12/04/2024 3:34 AM EDT 12/04/2024 3:41 AM EDT us Kirsty Tuttle APRN LAB BLOOD ORDERABLES Final R esult Performing Organization Address [facility]/ZIP Co de Phone Number [facility] [address] [phone] * (ABNORMAL) Comprehensive Metabolic Panel (12/04/2024 3:34 AM EDT) Sodium 143 136 - 145 meq/L 12/04/2024 4:04 AM EDT [facility] Potassium 3.7 3.4 - 5.1 meq/L 12/04/2024 4:04 AM EDT [facility] Chloride 115(H) 98 - 112 meq/L 12/04/2024 4:04 AM EDT [facility] CO2 20(L) 22 - 29 meq/L 12/04/2024 4:04 AM [facility] Calcium 8.3(L) 8.4 - 10.2 mg/dL 12/04/2024 4:04 AM [facility] Glucose 203(H) 82 - 115 mg/dL 12/04/2024 4:04 AM [facility] BUN 58.6(H) 9.8 - 20.1 mg/dL 12/04/2024 4:04 AM [facility] Creatinine 3.43(H) 0.57 - 1.11 mg/dL 12/04/2024 4:04 AM [facility] BUN/Creatinine 17 8 - 20 12/04/2024 4:04 AM [facility] eGFR (mL/min/1.73m2) 15(L) >=60 mL/min/1. 73m2 12/04/2024 4:04 AM [facility] Albumin 4.2 3.5 - 5.0 g/dL 12/04/2024 4:04 AM [facility] Alkaline Phosphatase 47 40 - 150 U/L 12/04/2024 4:04 AM [facility] ALT 11 <=34 U/L 12/04/2024 4:04 AM [facility] Comment: ALT2 reagent used for testing does not contain P5P supplementation and therefore may miss ALT elevations in patients with B6 deficiency. This population may be as high as 10% in the [place], with risk factors including malabsorption, drug interactions, and alcoholic hepatitis. AST 21 11 - 34 U/L 12/04/2024 4:04 AM [facility] Comment: AST2 reagent used for testing does not contain P5P supplementation and therefore may miss AST elevations in patients with B6 deficiency. This population may be as high as 10% in the [place], with risk factors including malabsorption, drug interactions, and alcoholic hepatitis. Total Bilirubin 1.1 0.2 - 1.2 mg/dL 12/04/2024 4:04 AM [facility] Protein, Total 6.7 6.4 - 8.3 g/dL 12/04/2024 4:04 AM [facility] Globulin 2.5 2.5 - 4.1 g/dL 12/04/2024 4:04 AM EDT [facility] Anion Gap 12 4 - 12 12/04/2024 4:04 AM EDT [facility] A/G Ratio 1.7 0.7 - 1.9 12/04/2024 4:04 AM EDT [facility] Osmolality Calc 307.2 mOsm/kg 4:04 AM EDT [facility] Blood Venipuncture / Unknown 12/04/2024 3:34 AM EDT 12/04/2024 3:41 AM EDT Timothy Bai MD LAB BLOOD ORDERABLES Final Result [facility] [address] [phone] * Magnesium (12/04/2024 3:34 AM EDT) Magnesium 2.5 1.6 - 2.6 mg/dL 12/04/2024 4:04 AM EDT [facility] Blood Venipuncture / Unknown 12/04/2024 3:34 AM EDT 12/04/2024 3:41 AM EDT Timothy Bai MD LAB BLOOD ORDERABLES Final Result [facility] [address] [phone] * ECG 12 lead (12/04/2024 3:25 AM EDT) SYSTOLIC BLOOD PRESSURE (MCT) 165 mmHg GE MUSE DIASTOLIC BLOOD PRESSURE (MCT) 77 mmHg GE MUSE VENTRICULAR RATE EKG/MIN 80 BPM GE MUSE ATRIAL RATE (MCT) 80 BPM GE MUSE IL Interval 154 ms GE MUSE QRS-INTERVAL (MSEC) 76 ms GE MUSE QT Interval 380 ms GE MUSE QTC Interval 438 ms GE MUSE P [place] 47 degrees GE MUSE R AXIS (MCT) 44 degrees GE MUSE T Wave [place] -30 degrees GE MUSE [place] Diagnosis Normal sinus rhythm Low voltage QRS Nonspecific T wave abnormality Confirmed by DEYSI FOSS M.D. ([id number]) on 12/04/2024 11:05:22 AM GE MUSE 12/04/2024 3:25 AM EDT 12/04/2024 11:05 AM EDT Deysi Foss MD ECG ORDERABLES Final Result GE MUSE * (ABNORMAL) Hemoglobin (12/04/2024 1:04 AM EDT) Hemoglobin 9.0(L) 11.2 - 15.7 GM/DL 12/04/2024 1:30 AM EDT [facility] Blood Venipuncture / Unknown 12/04/2024 1:04 AM EDT 12/04/2024 1:20 AM EDT Timothy Bai MD LAB BLOOD ORDERABLES Final Result Performing Organization Address [facility]/[place] Co de Phone Number [facility] [address] [phone] * (ABNORMAL) Glucose, Nova Meter (12/03/2024 9:41 PM EDT) POC-GLUCOSE 146(H) 70 - 110 mg/dL 12/03/2024 9:43 PM EDT [facility] Comment: In the event of poor peripheral blood flow, venous or arterial blood should be used due to the potential of erroneous results. Protocols Followed Nurse Advisor [phone] 12/03/2024 9:43 PM EDT [facility] Blood WHOLE BLOOD / Unknown 12/03/2024 9:41 PM EDT 12/03/2024 9:43 PM EDT Narrative [facility] - 12/03/2024 9:43 PM EDT Nurse Advisor ID is - [phone] Timothy Bai MD POINT OF CARE TEST ORDERAB LES Final Result Performing Organization Address [facility]/ZIP Co de Phone Number [facility] [address] [phone] * (ABNORMAL) Glucose, Nova Meter (12/03/2024 5:19 PM EDT) POC-GLUCOSE 146(H) 70 - 110 mg/dL 12/03/2024 5:24 PM EDT [facility] Comment: In the event of poor peripheral blood flow, venous or arterial blood should be used due to the potential of erroneous results. Notified Nurse RBV Nurse Advisor [phone] 12/03/2024 5:24 PM EDT [facility] Blood WHOLE BLOOD / Unknown 12/03/2024 5:19 PM EDT 12/03/2024 5:24 PM EDT Narrative [facility] - 12/03/2024 5:24 PM EDT Nurse Advisor ID is - [id number] Timothy Bai MD POINT OF CARE TEST ORDERAB LES Final Result Performing Organization Address [facility]/[place] Co de Phone Number [facility] [address] [phone] * XR chest AP portable (12/03/2024 4:45 PM EDT) Anatomical Region Laterality Modality Chest X-Ray 12/03/2024 6:06 PM EDT Impressions 12/03/2024 6:06 PM EDT Interval worsening as above. Continued follow up recommended . Images reviewed, interpreted, and dictated by JoseC Calhoun MD Narrative 12/03/2024 6:06 PM EDT [...] (MCT) -11 degrees GE MUSE T Wave [place] -58 degrees GE MUSE [place] Diagnosis Atrial fibrillation with rapid ventricular response Possible Anterolateral infarct , age undetermined Possible abberancy Confirmed by DEYSI FOSS M.D. ([id number]) on 12/03/2024 5:58:45 PM GE MUSE 12/03/2024 2:16 PM EDT 12/03/2024 5:58 PM EDT Timothy Bai MD ECG ORDERABLES Final Resu lt GE MUSE * (ABNORMAL) Glucose, Nova Meter (12/03/2024 10:45 AM EDT) Pathologist [facility] POC-GLUCOSE 156(H) 70 - 110 mg/dL 12/03/2024 10:49 AM EDT [facility] Comment: In the event of poor peripheral blood flow, venous or arterial blood should be used due to the potential of erroneous results. Notified Nurse RBV Nurse Advisor [phone] 12/03/2024 10:49 AM EDT [facility] Blood WHOLE BLOOD / Unknown 12/03/2024 10:45 AM EDT 12/03/2024 10:49 AM EDT Narrative [facility] - 12/03/2024 10:49 AM EDT Nurse Advisor ID is - [id number] Timothy Bai MD POINT OF CARE TEST ORDERAB LES Final Result [facility] [address] [phone] * ECG 12 lead (12/03/2024 10:39 AM EDT) Pathologist [facility] VENTRICULAR RATE EKG/MIN 97 BPM GE MUSE ATRIAL RATE (MCT) 97 BPM GE MUSE [place] Interval 150 ms GE MUSE QRS-INTERVAL (MSEC) 88 ms GE MUSE QT Interval 362 ms GE MUSE QTC Interval 459 ms GE MUSE P [place] 40 degrees GE MUSE R AXIS (MCT) 8 degrees GE MUSE T Wave [place] -8 degrees GE MUSE [place] Diagnosis Normal sinus rhythm Normal ECG No previous ECGs available Confirmed by DEYSI FOSS M.D. ([id number]) on 12/03/2024 5:59:01 PM GE MUSE 12/03/2024 10:3 9 AM EDT 12/03/2024 5:59 PM EDT us Timothy Bai MD ECG ORDERABLES Final Resu lt GE MUSE * (ABNORMAL) CBC with automated diff (12/03/2024 8:31 AM EDT) [facility] WBC 2.8(L) 4.0 - 10.0 K/ L 12/03/2024 9:00 AM EDT [facility] RBC 2.68(L) 3.93 - 5.22 M/ L 12/03/2024 9:00 AM EDT [facility] Hemoglobin 8.2(L) 11.2 - 15.7 GM/DL 12/03/2024 9:00 AM EDT [facility] Hematocrit 26.1(L) 34.1 - 44.9 % 12/03/2024 9:00 AM EDT [facility] MCV 97(H) 79 - 95 fL 12/03/2024 9:00 AM EDT [facility] MCH 30.6 25.6 - 32.2 pg 12/03/2024 9:00 AM EDT [facility] MCHC 31.4(L) 32.2 - 35.5 GM/DL 12/03/2024 9:00 AM EDT [facility] RDW 17.5(H) 11.7 - 14.4 % 12/03/2024 9:00 AM EDT [facility] Platelets 55(L) 140 - 375 K/CU MM 12/03/2024 9:00 AM EDT [facility] MPV 10.0 9.4 - 12.3 fL 12/03/2024 9:00 AM EDT [facility] % Neutros 79(H) 34 - 71 % 12/03/2024 9:00 AM EDT [facility] % Lymphs 13(L) 19 - 52 % 12/03/2024 9:00 AM EDT [facility] % Monos 6 5 - 13 % 12/03/2024 9:00 AM EDT [facility] % Eos 0(L) 1 - 6 % 12/03/2024 9:00 AM EDT [facility] % Baso 0 0 - 1 % 12/03/2024 9:00 AM EDT [facility] NRBC Absolute <0.01 0 - 0.012 K/ul 12/03/2024 9:00 AM EDT [facility] # Neutros 2.22 1.56 - 6.13 K/ L 12/03/2024 9:00 AM EDT [facility] # Lymphs 0.37(L) 1.18 - 3.74 K/ L 12/03/2024 9:00 AM EDT [facility] # Monos 0.18(L) 0.24 - 0.86 K/ L 12/03/2024 9:00 AM EDT [facility] # Eos <0.03(L) 0.04 - 0.36 K/ L 12/03/2024 9:00 AM EDT [facility] # Baso <0.03 0.01 - 0.08 K/ L 12/03/2024 9:00 AM EDT [facility] Immature Granulocytes-Re lative 0.70(H) 0.01 - 0.43 % 12/03/2024 9:00 AM EDT [facility] # IG <0.03 0.00 - 0.03 K/uL 12/03/2024 9:00 AM EDT [facility] Blood Venipuncture / Unknown 12/03/2024 8:31 AM EDT 12/03/2024 8:40 AM EDT Narrative [facility] - 12/03/2024 9:00 AM EDT When [...] BLOOD ORDERABLES Final Result Performing Organization Address [facility]/ZIP Co de Phone Number [facility] [address] [phone] * Creatine Kinase (CK) (12/03/2024 7:39 AM EDT) Total CK 55 29 - 168 U/L 12/03/2024 6:19 PM EDT [facility] Blood Venipuncture / Unknown 12/03/2024 7:39 AM EDT 12/03/2024 5:52 PM EDT us Hema Cervantes MD LAB BLOOD ORDERABLES Final Re sult [facility] [address] [phone] * Ammonia (12/03/2024 7:39 AM EDT) Ammonia 36 18 - 72 mol/L 12/03/2024 7:56 AM EDT [facility] Blood Venipuncture / Unknown 12/03/2024 7:39 AM EDT 12/03/2024 7:45 AM EDT Narrative [facility] - 12/03/2024 7:56 AM EDT Specimen slightly hemolyzed us Timothy Bai MD LAB BLOOD ORDERABLES Final Result [facility] [address] [place] [id number] [phone] * (ABNORMAL) Comprehensive Metabolic Panel (12/03/2024 7:39 AM EDT) Sodium 147(H) 136 - 145 meq/L 12/03/2024 8:05 AM EDT [facility] Potassium 4.1 3.4 - 5.1 meq/L 12/03/2024 8:05 AM EDT [facility] Chloride 119(H) 98 - 112 meq/L 12/03/2024 8:05 AM EDT [facility] CO2 20(L) 22 - 29 meq/L 12/03/2024 8:05 AM T [facility] Calcium 8.3(L) 8.4 - 10.2 mg/dL 12/03/2024 8:05 AM EDT [facility] Glucose 145(H) 82 - 115 mg/dL 12/03/2024 8:05 AM T [facility] BUN 53.7(H) 9.8 - 20.1 mg/dL 12/03/2024 8:05 AM T [facility] Creatinine 3.48(H) 0.57 - 1.11 mg/dL 12/03/2024 8:05 AM T [facility] BUN/Creatinine 15 8 - 20 12/03/2024 8:05 AM T [facility] eGFR (mL/min/1.73m2) 14(L) >=60 mL/min/1. 73m2 12/03/2024 8:05 AM T [facility] Albumin 4.4 3.5 - 5.0 g/dL 12/03/2024 8:05 AM [facility] Alkaline Phosphatase 49 40 - 150 U/L 12/03/2024 8:05 AM [facility] ALT 7 <=34 U/L 12/03/2024 8:05 AM T [facility] Comment: ALT2 reagent used for testing does not contain P5P supplementation and therefore may miss ALT elevations in patients with B6 deficiency. This population may be as high as 10% in the [place], with risk factors including malabsorption, drug interactions, and alcoholic hepatitis. AST 21 11 - 34 U/L 12/03/2024 8:05 AM EDT [facility] Comment: AST2 reagent used for testing does not contain P5P supplementation and therefore may miss AST elevations in patients with B6 deficiency. This population may be as high as 10% in the [place], with risk factors including malabsorption, drug interactions, and alcoholic hepatitis. Total Bilirubin 1.1 0.2 - 1.2 mg/dL 12/03/2024 8:05 AM EDT [facility] Protein, Total 6.8 6.4 - 8.3 g/dL 12/03/2024 8:05 AM EDT [facility] Globulin 2.4(L) 2.5 - 4.1 g/dL 12/03/2024 8:05 AM EDT [facility] Anion Gap 12 4 - 12 12/03/2024 8:05 AM EDT [facility] A/G Ratio 1.8 0.7 - 1.9 12/03/2024 8:05 AM EDT [facility] Osmolality Calc 309.7 mOsm/kg 8:05 AM EDT [facility] Blood Venipuncture / Unknown 12/03/2024 7:39 AM EDT 12/03/2024 7:46 AM EDT Timothy Bai MD LAB BLOOD ORDERABLES Final Result Performing Organization Address City/State/[place] Co de Phone Number [facility] [address] [phone] * Magnesium (12/03/2024 7:39 AM EDT) Magnesium 2.5 1.6 - 2.6 mg/dL 12/03/2024 8:05 AM EDT [facility] Blood Venipuncture / Unknown 12/03/2024 7:39 AM EDT 12/03/2024 7:46 AM EDT Timothy Bai MD LAB BLOOD ORDERABLES Final Result Performing Organization Address City/[facility]/ZIP Co de Phone Number [facility] [address] [phone] * (ABNORMAL) Glucose, Nova Meter (12/03/2024 5:13 AM EDT) POC-GLUCOSE 142(H) 70 - 110 mg/dL 12/03/2024 5:15 AM EDT [facility] Comment: In the event of poor peripheral blood flow, venous or arterial blood should be used due to the potential of erroneous results. Protocols Followed Nurse Advisor [phone] 12/03/2024 5:15 AM EDT [facility] Blood WHOLE BLOOD / Unknown 12/03/2024 5:13 AM EDT 12/03/2024 5:[address] [facility] - 12/03/2024 5:15 AM EDT Nurse Advisor ID is - [phone] us Timothy Bai MD POINT OF CARE TEST ORDERAB LES Final Result Performing Organization Address City/[facility]/ZIP Co de Phone Number [facility] [address] [phone] * (ABNORMAL) Glucose, Nova Meter (12/03/2024 1:12 AM EDT) POC-GLUCOSE 168(H) 70 - 110 mg/dL 12/03/2024 1:13 AM EDT [facility] Comment: In the event of poor peripheral blood flow, venous or arterial blood should be used due to the potential of erroneous results. Protocols Followed Nurse Advisor [phone] 12/03/2024 1:13 AM EDT [facility] Blood WHOLE BLOOD / Unknown 12/03/2024 1:12 AM EDT 12/03/2024 1:13 AM EDT Narrative [facility] - 12/03/2024 1:13 AM EDT Nurse Advisor ID is - [phone] us Timothy Bai MD POINT OF CARE TEST ORDERAB LES Final Result [facility] [address] [phone] * (ABNORMAL) Glucose, Nova Meter (12/03/2024 1:10 AM EDT) POC-GLUCOSE 164(H) 70 - 110 mg/dL 12/03/2024 1:12 AM EDT [facility] Comment: In the event of poor peripheral blood flow, venous or arterial blood should be used due to the potential of erroneous results. Protocols Followed Nurse Advisor [phone] 12/03/2024 1:12 AM EDT [facility] Blood WHOLE BLOOD / Unknown 12/03/2024 1:10 AM EDT 12/03/2024 1:12 AM EDT Narrative [facility] - 12/03/2024 1:12 AM EDT Nurse Advisor ID is - [phone] us Timothy Bai MD POINT OF CARE TEST ORDERAB LES Final Result [facility] [address] [phone] * (ABNORMAL) Hemoglobin (12/02/2024 11:06 PM EDT) Hemoglobin 8.9(L) 11.2 - 15.7 GM/DL 12/02/2024 11:18 PM EDT [facility] Blood Venipuncture / Unknown 12/02/2024 11:06 PM EDT 12/02/2024 11:15 PM EDT us Denilson Hodgson DO LAB BLOOD ORDERABLES Final Res ult [facility] [address] [phone] * (ABNORMAL) Glucose, Nova Meter (12/02/2024 8:06 PM EDT) POC-GLUCOSE 144(H) 70 - 110 mg/dL 12/02/2024 8:08 PM EDT [facility] Comment: In the event of poor peripheral blood flow, venous or arterial blood should be used due to the potential of erroneous results. Protocols Followed Nurse Advisor [phone] 12/02/2024 8:08 PM EDT [facility] Blood WHOLE BLOOD / Unknown 12/02/2024 8:06 PM EDT 12/02/2024 8:08 PM EDT Narrative [facility] - 12/02/2024 8:08 PM EDT Nurse Advisor ID is - [phone] Timothy Bai MD POINT OF CARE TEST ORDERAB LES Final Result Performing Organization Address [facility]/ZIP Co de Phone Number [facility] [address] [phone] * (ABNORMAL) Hemoglobin (12/02/2024 6:03 PM EDT) [facility] Hemoglobin 9.1(L) 11.2 - 15.7 GM/DL 12/02/2024 6:24 PM EDT [facility] Blood Venipuncture / Unknown 12/02/2024 6:03 PM EDT 12/02/2024 6:19 PM EDT Timothy Bai MD LAB BLOOD ORDERABLES Final Result [facility] [address] [phone] * (ABNORMAL) Glucose, Nova Meter (12/02/2024 5:18 PM EDT) [facility] POC-GLUCOSE 128(H) 70 - 110 mg/dL 12/02/2024 5:21 PM EDT [facility] Comment: In the event of poor peripheral blood flow, venous or arterial blood should be used due to the potential of erroneous results. Notified Nurse RBV Nurse Advisor [phone] 12/02/2024 5:21 PM EDT [facility] Blood WHOLE BLOOD / Unknown 12/02/2024 5:18 PM EDT 12/02/2024 5:20 PM EDT Narrative [facility] - 12/02/2024 5:21 PM EDT Nurse Advisor ID is - [phone] us Timothy Bai MD POINT OF CARE TEST ORDERAB LES Final Result Performing Organization Address [facility]/ZIP Co de Phone Number [facility] [address] [phone] * Transfuse RBC (12/02/2024 5:03 PM EDT) us Timothy Bai MD FS_MODEL_IP_BLOOD TRANSFUS ION ORDERABLES Final Result * Transfuse RBC: 1 Units (12/02/2024 5:03 PM EDT) us Timothy Bai MD FS_MODEL_IP_BLOOD TRANSFUS ION ORDERABLES Final Result * (ABNORMAL) Glucose, Nova Meter (12/02/2024 12:51 PM EDT) [facility] Signature POC-GLUCOSE 112(H) 70 - 110 mg/dL 12/02/2024 12:53 PM EDT [facility] Comment: In the event of poor peripheral blood flow, venous or arterial blood should be used due to the potential of erroneous results. Notified Nurse RBV Nurse Advisor [phone] 12/02/2024 12:53 PM EDT [facility] Blood WHOLE BLOOD / Unknown 12/02/2024 12:51 PM EDT 12/02/2024 12:53 PM EDT Narrative [facility] - 12/02/2024 12:53 PM EDT Nurse Advisor ID is - [phone] us Timothy Bai MD POINT OF CARE TEST ORDERAB LES Final Result Performing Organization Address City/[facility]/ZIP Co de Phone Number [facility] [address] [phone] * CT bone marrow biopsy (12/02/2024 12:24 [...] Pancytopenia. ATTENDING RADIOLOGIST: Dr. Haseeb Gil. PHYSICIAN CHANNEL SALES DIRECTOR: Sandra Ramsey PA-C PROCEDURE: After informed consent [...] Pancytopenia. ATTENDING RADIOLOGIST: Dr. Haseeb Gil. PHYSICIAN CHANNEL SALES DIRECTOR: Sandra Ramsey PA-C PROCEDURE: After informed consent [...] MD IM CT ORDERABLES Final Result * [facility] BONE MARROW SMEAR, ASPIRATION, AND STAIN (12/02/2024 12:06 PM EDT) AP RESULT See Note: [facility] Comment: [facility] [address] [place] [address] or [phone] Joe Carlos M.D., Radio Engineering Teacher PATIENT NAME LABORATORY NO. [id number] MARY GAR. [id number] [facility] AGE SEX SSN CLIENT REF # [id number] F [id number] [address] [place] [address] REQUESTING Alekasndr ATTENDING Aleksandr. COPY TO.LAURA BEAR DATE COLLECTED DATE RECEIVED DATE REPORTED 12/02/2024 12/02/2024 12/06/2024 ADDENDUM PRESENT ADDENDUM: Cytogenetics shows a normal female karyotype, 46,XX[20]. The original diagnosis remains unchanged. Verified by Heydi Mak M.D., MPH on 12/13/2024 Professional interpretation rendered by Heydi Mak M.D., MPH at [facility], [address] [place] [address]. DIAGNOSIS: PERIPHERAL SMEAR , BONE MARROW ASPIRATION [...] CD38, CD45, CD56, CD57, CD117, CD123, HLA-DR, Vesper, and Lambda. These tests use analyte specific [...] rendered by Heydi Mak M.D., MPH at [facility], [employer] [address] [place] [address]. GROSS DESCRIPTION: A. Received 1 peripheral blood smear slide for review. B. Received 5 bone marrow aspirate smear slides for review. 4 additional bone marrow aspirate smear slides made at [facility]. C. Received in a purple top tube [...] BY: Heydi Mak M.D., MPH CPT CODES: 80424, 2FLP, 08554, [id number], [id number], 54076, 25422, 00902g2 Bone Marrow BONE MARROW STRUCTURE / Unknown 12/02/2024 12:06 PM EDT Laura Batista MD PATHOLOGY/CYTOLOGY ORDERABLES Edited Result - Final [facility] [address] [place] [address] * Prepare RBC: 1 Units (12/02/2024 9:36 AM EDT) Issue Date/Time [id number] [facility] BLOOD [facility] [place] Product Identification Red Blood Cells [facility] [place]) Product Code [id number] [facility] [place] Status Information Transfused [facility] [place] Unit Number [id number] [facility] BLOOD [facility] [place]) Blood Type 5100 [facility] [place] Cross Match Results Compatible [facility] [place] Timothy Bai MD FS_MODEL_IP_BLOOD BANK PRO DUCT ORDERABLES Final Result [facility] [place] [address] [phone] * (ABNORMAL) Hemoglobin and hematocrit (12/02/2024 7:40 AM EDT) Hemoglobin 7.4(L) 11.2 - 15.7 GM/DL 12/02/2024 9:43 AM EDT [facility] Hematocrit 23.4(L) 34.1 - 44.9 % 12/02/2024 9:43 AM EDT [facility] Blood Venipuncture / Unknown 12/02/2024 7:40 AM EDT 12/02/2024 7:47 AM EDT Timothy Bai MD LAB BLOOD ORDERABLES Final Result Performing Organization Address City/[facility]/ZIP Co de Phone Number [facility] [address] [phone] * (ABNORMAL) Hemoglobin (12/02/2024 7:40 AM EDT) Hemoglobin 7.3(L) 11.2 - 15.7 GM/DL 12/02/2024 7:52 AM EDT [facility] Blood Venipuncture / Unknown 12/02/2024 7:40 AM EDT 12/02/2024 7:47 AM EDT Timothy Bai MD LAB BLOOD ORDERABLES Final Result Performing Organization Address City/[facility]/ZIP Co de Phone Number [facility] [address] [phone] * (ABNORMAL) Glucose, Nova Meter (12/02/2024 5:04 AM EDT) POC-GLUCOSE 115(H) 70 - 110 mg/dL 12/02/2024 5:06 AM EDT [facility] Comment: In the event of poor peripheral blood flow, venous or arterial blood should be used due to the potential of erroneous results. Notified Nurse [facility]BV Nurse Advisor [phone] 12/02/2024 5:06 AM EDT [facility] Blood WHOLE BLOOD / Unknown 12/02/2024 5:04 AM EDT 12/02/2024 5:[address] [facility] LABORATORY - 12/02/2024 5:06 AM EDT Nurse Advisor ID is - [phone] us Timothy Bai MD POINT OF CARE TEST ORDERAB LES Final Result Performing Organization Address [facility]/ZIP Co de Phone Number [facility] [address] [phone] * (ABNORMAL) Ammonia (12/02/2024 3:38 AM EDT) Ammonia 74(H) 18 - 72 mol/L 12/02/2024 5:20 AM EDT [facility] Blood Venipuncture / Unknown 12/02/2024 3:38 AM EDT 12/02/2024 4:[address] [facility] LABORATORY - 12/02/2024 5:20 AM EDT Specimen slightly hemolyzed us Timothy Bai MD LAB BLOOD ORDERABLES Final Result Performing Organization Address City/[facility]/ZIP Co de Phone Number [facility] [address] [place] [address] * (ABNORMAL) Comprehensive Metabolic Panel (12/02/2024 3:38 AM EDT) Sodium 146(H) 136 - 145 meq/L 12/02/2024 5:30 AM EDT [facility] Potassium 4.2 3.4 - 5.1 meq/L 12/02/2024 5:30 AM EDT [facility] Chloride 118(H) 98 - 112 meq/L 12/02/2024 5:30 AM EDT [facility] CO2 19(L) 22 - 29 meq/L 12/02/2024 5:30 AM EDT [facility] Calcium 7.9(L) 8.4 - 10.2 mg/dL 12/02/2024 5:30 AM EDT [facility] Glucose 107 82 - 115 mg/dL 12/02/2024 5:30 AM [facility] BUN 55.1(H) 9.8 - 20.1 mg/dL 12/02/2024 5:30 AM [facility] Creatinine 3.55(H) 0.57 - 1.11 mg/dL 12/02/2024 5:30 AM [facility] BUN/Creatinine 16 8 - 20 12/02/2024 5:30 AM [facility] eGFR (mL/min/1.73m2) 14(L) >=60 mL/min/1. 73m2 12/02/2024 5:30 AM [facility] Albumin 3.6 3.5 - 5.0 g/dL 12/02/2024 5:30 AM [facility] Alkaline Phosphatase 49 40 - 150 U/L 12/02/2024 5:30 AM [facility] ALT 8 <=34 U/L 12/02/2024 5:30 AM [facility] Comment: ALT2 reagent used for testing does not contain P5P supplementation and therefore may miss ALT elevations in patients with B6 deficiency. This population may be as high as 10% in the [place], with risk factors including malabsorption, drug interactions, and alcoholic hepatitis. AST 32 11 - 34 U/L 12/02/2024 5:30 AM [facility] Comment: AST2 reagent used for testing does not contain P5P supplementation and therefore may miss AST elevations in patients with B6 deficiency. This population may be as high as 10% in the [place], with risk factors including malabsorption, drug interactions, and alcoholic hepatitis. Total Bilirubin 0.9 0.2 - 1.2 mg/dL 12/02/2024 5:30 AM [facility] Protein, Total 6.1(L) 6.4 - 8.3 g/dL 12/02/2024 5:30 AM [facility] Globulin 2.5 2.5 - 4.1 g/dL 12/02/2024 5:30 AM [facility] Anion Gap 13(H) 4 - 12 12/02/2024 5:30 AM [facility] A/G Ratio 1.4 0.7 - 1.9 12/02/2024 5:30 AM EDT [facility] Osmolality Calc 306.2 mOsm/kg 5:30 AM EDT [facility] Blood Venipuncture / Unknown 12/02/2024 3:38 AM EDT 12/02/2024 4:48 AM EDT Narrative [facility] - 12/02/2024 5:30 AM EDT Specimen slightly hemolyzed Timothy Bai MD LAB BLOOD ORDERABLES Final Result [facility] [address] [phone] * Magnesium (12/02/2024 3:38 AM EDT) Magnesium 2.5 1.6 - 2.6 mg/dL 12/02/2024 5:30 AM EDT [facility] Blood Venipuncture / Unknown 12/02/2024 3:38 AM EDT 12/02/2024 4:48 AM EDT Narrative [facility] - 12/02/2024 5:30 AM EDT Specimen slightly hemolyzed Timothy Bai MD LAB BLOOD ORDERABLES Final Result [facility] [address] [phone] * (ABNORMAL) CBC - Hemogram (SJ-BKR) (12/02/2024 3:38 AM EDT) WBC 3.0(L) 4.0 - 10.0 K/ L 12/02/2024 5:08 AM EDT [facility] RBC 2.43(L) 3.93 - 5.22 M/ L 12/02/2024 5:08 AM EDT [facility] Hemoglobin 7.6(L) 11.2 - 15.7 GM/DL 12/02/2024 5:08 AM EDT [facility] Hematocrit 24.2(L) 34.1 - 44.9 % 12/02/2024 5:08 AM EDT [facility] MCV 100(H) 79 - 95 fL 12/02/2024 5:08 AM EDT [facility] MCH 31.3 25.6 - 32.2 pg 12/02/2024 5:08 AM EDT [facility] MCHC 31.4(L) 32.2 - 35.5 GM/DL 12/02/2024 5:08 AM EDT [facility] RDW 17.1(H) 11.7 - 14.4 % 12/02/2024 5:08 AM EDT [facility] Platelets 57(L) 140 - 375 K/CU MM 12/02/2024 5:08 AM EDT [facility] MPV 10.5 9.4 - 12.3 fL 12/02/2024 5:08 AM EDT [facility] Blood Venipuncture / Unknown 12/02/2024 3:38 AM EDT 12/02/2024 4:47 AM EDT Timothy Bai MD LAB BLOOD ORDERABLES Final Result [facility] [address] [phone] * (ABNORMAL) Hemoglobin (12/02/2024 12:04 AM EDT) Hemoglobin 7.7(L) 11.2 - 15.7 GM/DL 12/02/2024 12:18 AM EDT [facility] Blood Venipuncture / Unknown 12/02/2024 12:04 AM EDT 12/02/2024 12:16 AM EDT Timothy Bai MD LAB BLOOD ORDERABLES Final Result [facility] [address] [phone] * (ABNORMAL) Glucose, Nova Meter (12/01/2024 7:34 PM EDT) POC-GLUCOSE 128(H) 70 - 110 mg/dL 12/01/2024 7:35 PM EDT [facility] Comment: In the event of poor peripheral blood flow, venous or arterial blood should be used due to the potential of erroneous results. Notified Nurse RBV Nurse Advisor [phone] 12/01/2024 7:35 PM EDT [facility] Blood WHOLE BLOOD / Unknown 12/01/2024 7:34 PM EDT 12/01/2024 7:35 PM EDT Narrative [facility] - 12/01/2024 7:35 PM EDT Nurse Advisor ID is - [phone] Timothy Bai MD POINT OF CARE TEST ORDERAB LES Final Result Performing Organization Address [facility]/[place]UST Co de Phone Number [facility] [address] [phone] * (ABNORMAL) Glucose, Nova Meter (12/01/2024 4:25 PM EDT) POC-GLUCOSE 115(H) 70 - 110 mg/dL 12/01/2024 4:26 PM EDT [facility] Comment: In the event of poor peripheral blood flow, venous or arterial blood should be used due to the potential of erroneous results. Notified Nurse RBV Nurse Advisor [phone] 12/01/2024 4:26 PM EDT [facility] Blood WHOLE BLOOD / Unknown 12/01/2024 4:25 PM EDT 12/01/2024 4:26 PM EDT Narrative [facility] - 12/01/2024 4:26 PM EDT Nurse Advisor ID is - [phone] us Timothy Bai MD POINT OF CARE TEST ORDERAB LES Final Result Performing Organization Address City/[facility]/ZIP Co de Phone Number [facility] [address] [phone] * (ABNORMAL) Hemoglobin (12/01/2024 3:33 PM EDT) Hemoglobin 8.0(L) 11.2 - 15.7 GM/DL 12/01/2024 4:03 PM EDT [facility] Blood Venipuncture / Unknown 12/01/2024 3:33 PM EDT 12/01/2024 4:00 PM EDT us Timothy Bai MD LAB BLOOD ORDERABLES Final Result [facility] 1 [place] [address], [facility] [phone] * Glucose, Nova Meter (12/01/2024 10:32 AM EDT) POC-GLUCOSE 100 70 - 110 mg/dL 12/01/2024 10:33 AM EDT [facility] Comment: In the event of poor peripheral blood flow, venous or arterial blood should be used due to the potential of erroneous results. Notified Nurse RBV Nurse Advisor [phone] 12/01/2024 10:33 AM EDT [facility] Blood WHOLE BLOOD / Unknown 12/01/2024 10:32 AM EDT 12/01/2024 10:33 AM EDT Narrative [facility] - 12/01/2024 10:33 AM EDT Nurse Advisor ID is - [phone] us Timothy Bai MD POINT OF CARE TEST ORDERAB LES Final Result [facility] [address] [place] [address], [facility] [phone] * Transfuse RBC (12/01/2024 9:18 AM EDT) us Denilson Hodgson DO FS_MODEL_IP_BLOOD TRANSFUSION ORDERABLES Final Result * Transfuse RBC: 1 Units (12/01/2024 9:18 AM EDT) us Denilson Hodgson DO FS_MODEL_IP_BLOOD TRANSFUSION ORDERABLES Final Result * Glucose, Nova Meter (12/01/2024 8:12 AM EDT) POC-GLUCOSE 103 70 - 110 mg/dL 12/01/2024 8:14 AM EDT [facility] Comment: In the event of poor peripheral blood flow, venous or arterial blood should be used due to the potential of erroneous results. Protocols Followed Nurse Advisor [phone] 12/01/2024 8:14 AM EDT [facility] Blood WHOLE BLOOD / Unknown 12/01/2024 8:12 AM EDT 12/01/2024 8:14 AM EDT Narrative [facility] - 12/01/2024 8:14 AM EDT Nurse Advisor ID is - [phone] us Timothy Bai MD POINT OF CARE TEST ORDERAB LES Final Result Performing Organization Address City/[facility]/ZIP Co de Phone Number [facility] [address] [place] [address] * Type and Screen (12/01/2024 7:08 AM EDT) ABO/Rh O Positive 12/01/2024 4:53 AM EDT [facility] ([place] Antibody Screen Negative 12/01/2024 4:53 AM EDT [facility] [place]) HISTCHK HIST CHECK PERFORMED 12/01/2024 4:53 AM EDT [facility] ([place]) Blood Venipuncture / Unknown 12/01/2024 7:08 AM EDT 12/01/2024 7:15 AM EDT us Denilson Hodgson DO [facility] BLOOD BANK TEST ORDERABLES Final Result [facility] ([place]) [address] [place] [address], [facility] [phone] * Glucose, Nova Meter (12/01/2024 5:37 AM EDT) POC-GLUCOSE 107 70 - 110 mg/dL 12/01/2024 5:39 AM EDT [facility] Comment: In the event of poor peripheral blood flow, venous or arterial blood should be used due to the potential of erroneous results. Notified Nurse RBV Nurse Advisor [phone] 12/01/2024 5:39 AM EDT [facility] Blood WHOLE BLOOD / Unknown 12/01/2024 5:37 AM EDT 12/01/2024 5:39 AM EDT Narrative [facility] - 12/01/2024 5:39 AM EDT Nurse Advisor ID is - [phone] us Timothy Bai MD POINT OF CARE TEST ORDERAB LES Final Result [facility] [address] [phone] * Prepare RBC: 1 Units (12/01/2024 4:53 AM EDT) Issue Date/Time [id number] [facility]OD [facility] ([place]) Product Identification Red Blood Cells [facility] ([place]) Product Code [id number] [facility] [place]) Status Information Transfused [facility] ([place]) Unit Number [id number] [facility] ([place]) Blood Type 5100 [facility] ([place]) Cross Match Results Compatible [facility] ([place]) us Denilson Hodgson DO FS_MODEL_IP_BLOOD BANK PRODUCT ORDERABLES Final Result [facility] ([place]) 1 [place] [address], [facility] [phone] * ABO/RH Confirmation/Retype (12/01/2024 4:06 AM EDT) RETYPE O Positive 12/01/2024 5:15 AM EDT [facility] ([place]) Comment:[id number] Blood Venipuncture / Unknown 12/01/2024 4:06 AM EDT 12/01/2024 5:14 AM EDT us Timothy Bai MD [facility] BLOOD BANK TEST ORDERA BLES Final Result Performing Organization Address [facility]/ZIP Co de Phone Number [facility] ([place]) [address] [phone] * (ABNORMAL) Ammonia (12/01/2024 4:06 AM EDT) Ammonia 75(H) 18 - 72 mol/L 12/01/2024 4:49 AM EDT [facility] Blood Venipuncture / Unknown 12/01/2024 4:06 AM EDT 12/01/2024 4:13 AM EDT us Timothy Bai MD LAB BLOOD ORDERABLES Final Result Performing Organization Address [facility]/ZIP Co de Phone Number [facility] [address] [phone] * (ABNORMAL) CBC - Hemogram (SJ-BKR) (12/01/2024 4:06 AM EDT) WBC 1.7(LL) 4.0 - 10.0 K/ L 12/01/2024 4:43 AM EDT [facility] RBC 2.15(L) 3.93 - 5.22 M/ L 12/01/2024 4:43 AM EDT [facility] Hemoglobin 6.7(L) 11.2 - 15.7 GM/DL 12/01/2024 4:43 AM EDT [facility] Hematocrit 21.6(L) 34.1 - 44.9 % 12/01/2024 4:43 AM EDT [facility] MCV 101(H) 79 - 95 fL 12/01/2024 4:43 AM EDT [facility] MCH 31.2 25.6 - 32.2 pg 12/01/2024 4:43 AM EDT [facility] MCHC 31.0(L) 32.2 - 35.5 GM/DL 12/01/2024 4:43 AM EDT [facility] RDW 16.2(H) 11.7 - 14.4 % 12/01/2024 4:43 AM EDT [facility] Platelets 54(L) 140 - 375 K/CU MM 12/01/2024 4:43 AM EDT [facility] MPV 10.6 9.4 - 12.3 fL 12/01/2024 4:43 AM EDT [facility] Blood Venipuncture / Unknown 12/01/2024 4:06 AM EDT 12/01/2024 4:12 AM EDT us Timothy Bai MD LAB BLOOD ORDERABLES Final Result [facility] [address] [phone] * (ABNORMAL) Comprehensive Metabolic Panel (12/01/2024 4:05 AM EDT) Sodium 145 136 - 145 meq/L 12/01/2024 5:01 AM EDT [facility] Potassium 4.2 3.4 - 5.1 meq/L 12/01/2024 5:01 AM EDT [facility] Chloride 116(H) 98 - 112 meq/L 12/01/2024 5:01 AM EDT [facility] CO2 20(L) 22 - 29 meq/L 12/01/2024 5:01 AM EDT [facility] Calcium 8.0(L) 8.4 - 10.2 mg/dL 12/01/2024 5:01 AM EDT [facility] Glucose 120(H) 82 - 115 mg/dL 12/01/2024 5:01 AM EDT [facility] BUN 68.3(H) 9.8 - 20.1 mg/dL 12/01/2024 5:01 AM EDT [facility] Creatinine 4.13(H) 0.57 - 1.11 mg/dL 12/01/2024 5:01 AM [facility] BUN/Creatinine 17 8 - 20 12/01/2024 5:01 AM [facility] eGFR (mL/min/1.73m2) 12(L) >=60 mL/min/1. 73m2 12/01/2024 5:01 AM [facility] Albumin 2.8(L) 3.5 - 5.0 g/dL 12/01/2024 5:01 AM [facility] Alkaline Phosphatase 61 40 - 150 U/L 12/01/2024 5:01 AM [facility] ALT 15 <=34 U/L 12/01/2024 5:01 AM [facility] Comment: ALT2 reagent used for testing does not contain P5P supplementation and therefore may miss ALT elevations in patients with B6 deficiency. This population may be as high as 10% in the [place], with risk factors including malabsorption, drug interactions, and alcoholic hepatitis. AST 26 11 - 34 U/L 12/01/2024 5:01 AM [facility] Comment: AST2 reagent used for testing does not contain P5P supplementation and therefore may miss AST elevations in patients with B6 deficiency. This population may be as high as 10% in the [place], with risk factors including malabsorption, drug interactions, and alcoholic hepatitis. Total Bilirubin 0.5 0.2 - 1.2 mg/dL 12/01/2024 5:01 AM [facility] Protein, Total 5.7(L) 6.4 - 8.3 g/dL 12/01/2024 5:01 AM [facility] Globulin 2.9 2.5 - 4.1 g/dL 12/01/2024 5:01 AM [facility] Anion Gap 13(H) 4 - 12 12/01/2024 5:01 AM [facility] A/G Ratio 1.0 0.7 - 1.9 12/01/2024 5:01 AM [facility] Osmolality Calc 309.8 mOsm/kg 5:01 AM [facility] Blood Venipuncture / Unknown 12/01/2024 4:05 AM EDT 12/01/2024 4:13 AM EDT us Timothy Bai MD LAB BLOOD ORDERABLES Final Result Performing Organization Address City/[facility]/ZIP Co de Phone Number [facility] [address] [phone] * (ABNORMAL) Magnesium (12/01/2024 4:05 AM EDT) Magnesium 2.7(H) 1.6 - 2.6 mg/dL 12/01/2024 4:57 AM EDT [facility] Blood Venipuncture / Unknown 12/01/2024 4:05 AM EDT 12/01/2024 4:13 AM EDT us Timothy Bai MD LAB BLOOD ORDERABLES Final Result Performing Organization Address [facility]/[place] Co tn Phone Number [facility] [address] [phone] * Glucose, Nova Meter (11/30/2024 7:38 PM EDT) POC-GLUCOSE 106 70 - 110 mg/dL 11/30/2024 7:39 PM EDT [facility] Comment: In the event of poor peripheral blood flow, venous or arterial blood should be used due to the potential of erroneous results. Notified Nurse RBV Nurse Advisor [phone] 11/30/2024 7:39 PM EDT [facility] Blood WHOLE BLOOD / Unknown 11/30/2024 7:38 PM EDT 11/30/2024 7:39 PM EDT Narrative [facility] - 11/30/2024 7:39 PM EDT Nurse Advisor ID is - [phone] us Timothy Bai MD POINT OF CARE TEST ORDERAB LES Final Result Performing Organization Address [facility] Co de Phone Number [facility] [address] [phone] * Glucose, Nova Meter (11/30/2024 6:22 PM EDT) POC-GLUCOSE 107 70 - 110 mg/dL 11/30/2024 6:25 PM EDT [facility] Comment:In the event of poor peripheral blood flow, venous or arterial blood should be used due to the potential of erroneous results. Nurse Advisor [phone] 11/30/2024 6:25 PM EDT [facility] Blood WHOLE BLOOD / Unknown 11/30/2024 6:22 PM EDT 11/30/2024 6:25 PM EDT Narrative [facility] - 11/30/2024 6:25 PM EDT Nurse Advisor ID is - [phone] us Timothy Bai MD POINT OF CARE TEST ORDERAB LES Final Result [facility] [address] [phone] * Ultrasound renal limited (11/30/2024 4:19 PM [...] personally reviewed, interpreted and dictated by SABINE Yagn. us Destiney Llanes HELPER COORDINATOR IMG US ORDERABLES Final Res ult * [...] Ascites ATTENDING PHYSICIAN: Dr. Haseeb Gil PHYSICIAN CHANNEL SALES DIRECTOR: Gabriel Velasco PA-C FINDINGS: After informed consent [...] Ascites ATTENDING PHYSICIAN: Dr. Haseeb Gil PHYSICIAN CHANNEL SALES DIRECTOR: Gabriel Velasco PA-C FINDINGS: After informed consent [...] Gabriel Velasco PA-C. us Huey Hurtado MD IMG US ORDERABLES Final Result * Protein, body fluid (11/30/2024 4:03 PM EDT) Protein, Fluid 1.9 See Comment g/dL 12/01/2024 7:10 AM EDT [facility] BODY FLUID TYPE Peritoneal 12/01/2024 7:10 AM EDT [facility] Body Fluid PERITONEAL FLUID / Unknown 11/30/2024 4:03 PM EDT 12/01/2024 6:52 AM EDT Narrative [facility] - 12/01/2024 7:10 AM EDT This test has been modified from the automotive accessory installer's instructions and its performance characteristics were determined by the laboratory. The reference intervals and other method performance specifications are unavailable for this test. It is recommended to interpret body fluid concentrations in comparison with the corresponding serum or plasma concentrations and to integrate test results into the clinical context. us Timothy Bai MD BODY FLUIDS AND STOOLS ORD ERABLES Final Result [facility] 1 [place], [place] [address] [phone] * Glucose, body fluid (11/30/2024 4:03 PM EDT) Glucose, Body Fluid 107 See Comment mg/dL 12/01/2024 7:10 AM EDT [facility] BODY FLUID TYPE Peritoneal 12/01/2024 7:10 AM EDT [facility] Body Fluid PERITONEAL FLUID / Unknown 11/30/2024 4:03 PM EDT 12/01/2024 6:52 AM EDT Narrative [facility] - 12/01/2024 7:10 AM EDT This test has been modified from the automotive accessory installer's instructions and its performance characteristics were determined [...] ORD ERABLES Final Result Performing Organization Address City/[facility]/ZIP Co de Phone Number [facility] [address] [place] [address], [facility] [phone] * Body Fluid/CSF - Path Review (SJ) (11/30/2024 4:03 PM EDT) SENT TO PATHOLOGY FOR REVIEW Yes 12/03/2024 6:54 AM EDT [facility] Scan Result Mesothelial cells. MD German 12/02/2024 12/03/2024 6:54 AM EDT [facility] Peritoneal Fluid BODY FLUID / Unknown 11/30/2024 4:03 PM EDT 11/30/2024 4:33 PM EDT us Huey Hurtado MD BODY FLUIDS AND STOOLS ORDERABLE S Final Result [facility] [address] [place] [address], [facility] [phone] * DIFFERENTIAL, BODY FLUID (11/30/2024 4:03 PM EDT) Neutrophils Fluid 5 0 - 25 % 025 8:49 PM EDT [facility] Lymphocytes Fluid 46 % 025 8:49 PM EDT [facility] Unidentified Mononuclear Cells BF 49 0 - 0 % 11/30/2024 8:49 PM EDT [facility] Peritoneal Fluid BODY FLUID / Unknown 11/30/2024 4:03 PM EDT 11/30/2024 4:33 PM EDT Huey Hurtado MD BODY FLUIDS AND STOOLS ORDERABLE S Final Result [facility] [address] [phone] * [facility] Non-Supervisor Cytology (11/30/2024 4:03 PM EDT) AP RESULT See Note: [facility] Comment: [facility] [address] [place] [address] or [phone] Joe Carlos M.D., Radio Engineering Teacher PATIENT NAME LABORATORY NO. MARY OLIVA. [id number] AGE SEX SSN CLIENT REF # [facility] 64 [id number] F [id number] [facility] REQUESTING Aleksandr ATTENDING Ale[place] [address] HUEY HURTADO DATE COLLECTED DATE RECEIVED DATE REPORTED 11/30/2024 12/01/2024 12/02/2024 DIAGNOSIS: PERITONEAL FLUID: Negative for malignant cells. MICROSCOPIC DESCRIPTION: Scattered mesothelial cells and chronic inflammatory cells are present. Professional interpretation rendered by John Sanchez M.D., F.C.A.P. at [employer] [address] [place] [address]. CLINICAL HISTORY: Melena Anasarca Acute renal failure SPECIMENS SUBMITTED: PERITONEAL FLUID GROSS SPECIMEN DESCRIPTION: 40 ccs of hazy, light yellow fluid, scant sediment, received in fixative ThinPrep slides prepared. Cell block has been examined. FINANCIAL INSTITUTION BRANCH MANAGER: SVITLANA HERNANDEZ (ASCP) REVIEWED, DIAGNOSED AND ELECTRONICALLY SIGNED BY: John Sanchez M.D., F.C.A.P. CPT CODES: [id number], [id number] Peritoneal Fluid BODY FLUID / Unknown 11/30/2024 4:03 PM EDT us Huey Hurtado MD PATHOLOGY/CYTOLOGY ORDERABLES Fi nal Result PATHOLOGY AND CYTOLOGY LABORATORY [address] [place] [address], [facility] * AFB Culture And Stain (11/30/2024 4:03 PM EDT) Result No Acid Fast Bacilli isolated at 6 weeks 01/11/2025 5:00 PM EDT [facility] AFB Smear No acid fast bacilli seen 01/11/2025 5:00 PM EDT [facility] Peritoneal Fluid BODY FLUID / Unknown 11/30/2024 4:03 PM EDT 11/30/2024 4:[address] [facility] - 01/11/2025 5:00 PM EDT Specimen Description: peritoneal fluid us Huey Hurtado MD MICROBIOLOGY - GENERAL ORDERABLE S Final Result [facility] [address] [phone] * Fungus Culture W/ROSA MARIA Or Nimisha Ink (11/30/2024 4:03 PM EDT) Result No fungus isolated at 6 weeks. 01/11/2025 5:00 PM EDT [facility] ROSA MARIA Prep No fungal elements seen 01/11/2025 5:00 PM EDT [facility] Peritoneal Fluid BODY FLUID / Unknown 11/30/2024 4:03 PM EDT 11/30/2024 4:34 PM EDT Narrative [facility] - 01/11/2025 5:00 PM EDT Specimen Description: peritoneal fluid us Huey Hurtado MD MICROBIOLOGY - GENERAL ORDERABLE S Final Result [facility] [address] [phone] * Anaerobic Culture (11/30/2024 4:03 PM EDT) Result No Anaerobic growth 12/05/2024 6:34 AM EDT [facility] Peritoneal Fluid BODY FLUID / Unknown 11/30/2024 4:03 PM EDT 11/30/2024 4:34 PM EDT Narrative [facility] - 12/05/2024 6:34 AM EDT Specimen Description: peritoneal fluid us Huey Hurtado MD MICROBIOLOGY - GENERAL ORDERABLE S Final Result Performing Organization Address [place] [facility]/ZIP Co de Phone Number [facility] [address] [phone] * Body Fluid Culture + Gram Stain (11/30/2024 4:03 PM EDT) Result No growth 12/03/2024 9:07 AM EDT [facility] Gram Stain Result No organisms seen 12/03/2024 9:07 AM EDT [facility] Gram Stain Result No cells seen 12/03/2024 9:07 AM EDT [facility] Peritoneal Fluid BODY FLUID / Unknown 11/30/2024 4:03 PM EDT 11/30/2024 4:34 PM EDT Narrative [facility] - 12/03/2024 9:07 AM EDT Specimen Description: peritoneal fluid us Huey Hurtado MD MICROBIOLOGY - GENERAL ORDERABLE S Final Result [facility] [address] [phone] * (ABNORMAL) Body fluid cell count with differential (11/30/2024 4:03 PM EDT) Appearance Cloudy(A) Clear 11/30/2024 8:49 PM EDT [facility] Color Yellow 11/30/2024 8:49 PM EDT [facility] BODY FLUID TYPE Peritoneal 11/30/2024 8:49 PM EDT [facility] Auto WBC/Nucleated Cells BF 85 /uL 11/30/2024 8:49 PM EDT [facility] Comment: Please refer to specific WBC/Nucleated Cell Count Body Fluid reference ranges below: For Pleural: 0-1000 Peritoneal: 0-1000 Pericardial:0-1000 Synovial: 0-200 Auto RBC BF <3,000 /uL 11/30/2024 8:49 PM EDT [facility] Comment: Please refer to specific RBC Cell Count Body Fluid reference ranges below: Pleural: 0-10,000 Peritoneal: 0-10,000 Pericardial:0-10,000 Synovial:0-30 Peritoneal Fluid BODY FLUID / Unknown 11/30/2024 4:03 PM EDT 11/30/2024 4:33 PM EDT Narrative [facility] - 11/30/2024 8:49 PM EDT There is normally no readily obtainable pleural, peritoneal and pericardial fluid, hence normal elements for these potential fluids are not defined. us Huey Hurtado MD BODY FLUIDS AND STOOLS ORDERABLE S Final Result Performing Organization Address City/State/[place] Co de Phone Number [facility] [address] [phone] * Lactate dehydrogenase (LDH), body fluid (11/30/2024 4:03 PM EDT) LDH, Fluid 71 See Comment U/L 11/30/2024 6:19 PM EDT [facility] BODY FLUID TYPE Peritoneal 11/30/2024 6:19 PM EDT [facility] Peritoneal Fluid BODY FLUID / Unknown 11/30/2024 4:03 PM EDT 11/30/2024 4:33 PM EDT Narrative [facility] - 11/30/2024 6:19 PM EDT This test has been modified from the automotive accessory installer's instructions and its performance characteristics were determined [...] ORDERABLE S Final Result Performing Organization Address [facility]/ZIP Co de Phone Number [facility] [address] [phone] * Protein / creatinine ratio, urine (11/30/2024 11:35 AM EDT) Creatinine, Ur 62.00 47.00 - 110.00 mg/dL 11/30/2024 12:36 PM EDT [facility] Protein Creatinine Ratio 0.19 <=0.20 11/30/2024 12:36 PM EDT [facility] Protein, Urine 12 1 - 14 mg/dL 11/30/2024 12:36 PM EDT [facility] Urine 11/30/2024 11:3 5 AM EDT 11/30/2024 12:15 PM EDT Hill Boo MD URINE ORDERABLES Final Result Performing Organization Address [facility]/[place] Co de Phone Number [facility] [address] [phone] * Urea Nitrogen, random urine (11/30/2024 11:35 AM EDT) Urea Nitrogen, Ur 305 mg/dL 11/30/2024 12:36 PM EDT [facility] Comment:Reference Range not established Urine 11/30/2024 11:3 5 AM EDT 11/30/2024 12:15 PM EDT Hill Boo MD URINE ORDERABLES Final Result Performing Organization Address [facility]/ZIP Co de Phone Number [facility] [address] [phone] * Sodium, random urine (11/30/2024 11:35 AM EDT) Sodium Urine 83 See Comment meq/L 11/30/2024 12:36 PM EDT [facility] Comment:Reference Range not established Urine 11/30/2024 11:3 5 AM EDT 11/30/2024 12:15 PM EDT us Hill Boo MD URINE ORDERABLES Final Result Performing Organization Address [facility] de Phone Number [facility] [address] [phone] * (ABNORMAL) Urinalysis Microscopic Only (11/30/2024 11:35 AM EDT) WBC, UA 21-50(A) None Seen /HPF 11/30/2024 12:06 PM EDT [facility] RBC, UA 0-2(A) None Seen /HPF 11/30/2024 12:06 PM EDT [facility] Bacteria, UA 1+(A) None Seen, Trace 11/30/2024 12:06 PM EDT [facility] Mucus 1+(A) None Seen 11/30/2024 12:06 PM EDT [facility] SQUAMOUS EPITHELIAL 3-5(A) None Seen /HPF 11/30/2024 12:06 PM EDT [facility] HYALINE CASTS 21-50(A) None Seen /LPF 11/30/2024 12:06 PM EDT [facility] Urine URINE SPECIMEN COLLECTION, CLEAN CATCH / Unknown 11/30/2024 11:35 AM EDT 11/30/2024 11:41 AM EDT us Destiney Llanes APRN URINE ORDERABLES Final Resu lt Performing Organization Address [facility]/[place] Co de Phone Number [facility] [address] [place] [address], [facility] [phone] * Urine Culture (11/30/2024 11:35 AM EDT) Result Recollect Specimen - 3 or more organisms suggests contamination 12/01/2024 6:49 AM EDT [facility] Urine URINE SPECIMEN COLLECTION, CLEAN CATCH / Unknown 11/30/2024 11:35 AM EDT 11/30/2024 11:41 AM EDT us Destiney Llanes APRN MICROBIOLOGY - GENERAL ORDTammie HAMLIN Final Result [facility] [address] [phone] * (ABNORMAL) Urinalysis, Reflex Microscopic and Culture If Indicated (11/30/2024 11:35 AM EDT) Color, UA Light Yellow 11/30/2024 12:06 PM EDT [facility] Clarity, UA Turbid(A) Clear 11/30/2024 12:06 PM EDT [facility] Specific [place], UA 1.011 1.005 - 1.030 11/30/2024 12:06 PM EDT [facility] pH, UA 5.0(L) 6.0 - 8.0 11/30/2024 12:06 PM EDT [facility] Leukocytes, UA 500 Félix/uL(A) Negative 11/30/2024 12:06 PM EDT [facility] Nitrite, UA Negative Negative 11/30/2024 12:06 PM EDT [facility] Protein, UA Negative Negative 11/30/2024 12:06 PM EDT [facility] Glucose, UA Normal Normal 11/30/2024 12:06 PM EDT [facility] Ketones, UA Negative Negative 11/30/2024 12:06 PM EDT [facility] Bilirubin, UA Negative Negative 11/30/2024 12:06 PM EDT [facility] Blood, UA Negative Negative 11/30/2024 12:06 PM EDT [facility] Urobilinogen, UA Normal Normal 11/30/2024 12:06 PM EDT [facility] Specimen Source Urine, Clean Catch 11/30/2024 12:06 PM EDT [facility] Urine URINE SPECIMEN COLLECTION, CLEAN CATCH / Unknown 11/30/2024 11:35 AM EDT 11/30/2024 11:41 AM EDT Destiney Llanes APRN URINE ORDERABLES Final Resu lt [facility] [address] [phone] * XR chest AP portable (11/30/2024 11:29 [...] by Marielos Sotelo PA-C. Destiney Llanes APRN IM DIAGNOSTIC IMAGING [facility] MONETTMARILYN Final Result * (ABNORMAL) Monoclonal Protein Study, Expanded Panel(SENDOUT) (11/30/2024 11:01 AM EDT) Total Protein, Serum 6.2(L) 6.3 - 8.2 g/dL 12/03/2024 12:57 PM EDT [facility] Albumin 2.71(L) 3.75 - 5.01 g/dL 12/03/2024 12:57 PM EDT [facility] Alpha 1 Globulin 0.34 0.19 - 0.46 g/dL 12/03/2024 12:57 PM [facility] Alpha 2 Globulin 0.38(L) 0.48 - 1.05 g/dL 12/03/2024 12:57 PM [facility] Beta Globulin 1.30(H) 0.48 - 1.10 g/dL 12/03/2024 12:57 PM [facility] Gamma 1.47 0.62 - 1.51 g/dL 12/03/2024 12:57 PM [facility] Immunofixation MAEGAN Done 12/03/2024 12:57 PM [facility] Immunoglobulin G 1484 768 - 1632 mg/dL 12/03/2024 12:57 PM [facility] Immunoglobulin A 686(H) 68 - 408 mg/dL 12/03/2024 12:57 PM [facility] Immunoglobulin M 126 35 - 263 mg/dL 12/03/2024 12:57 PM [facility] Monoclonal Protein Not Applicable <=0.00 g/dL 12/03/2024 12:57 PM [facility] Vesper Qnt Free Light Chains 173.10(H) 3.30 - 19.40 mg/L 12/03/2024 12:57 PM [facility] Comment: INTERPRETIVE INFORMATION: Vesper Qnt Free Light Chains Undetected antigen excess is a rare event but cannot be excluded. Free light chain results should always be interpreted in conjunction with other clinical and laboratory findings. Lambda Qnt Free Light Chains 123.84(H) 5.71 - 26.30 mg/L 12/03/2024 12:57 PM [facility] Comment: INTERPRETIVE INFORMATION: Lambda Qnt Free Light Chains Undetected antigen excess is a rare event but cannot be excluded. Free light chain results should always be interpreted in conjunction with other clinical and laboratory findings. Vesper/Lambda Free Light Chain Ratio 1.40 0.26 - 1.65 12/03/2024 12:57 [facility] SPEP/MAEGAN Interpretation See Note 12/03/2024 12:57 [facility] Comment: Restricted band in the beta region [...] Serum See Note 12/03/2024 12:57 PM EDT [employer] Comment: Authorized individuals can access the [employer] Enhanced Report with an [employer] Connect account using the following link. Your local lab can assist you in obtaining the patient report if you don't have a Connect account. [email or web address] Performed By: [facility] [address] [place] [address] Apprentice Plant Attendant: Lalo Mortensen MD, PhD CLIA Number: [id number] Blood Venipuncture / Unknown 11/30/2024 11:01 AM EDT 11/30/2024 12:17 PM EDT Hill Boo MD LAB BLOOD ORDERABLES Final Resu lt [employer] [address] [place] [address], [facility] [phone] * Alpha Fetoprotein Tumor Marker(SENDOUT) (11/30/2024 11:01 AM EDT) Alpha Fetoprotein Tumor Marker 2 0 - 9 ng/mL 12/01/2024 3:41 PM EDT [employer] Comment: INTERPRETIVE INFORMATION: Alpha Fetoprotein Tumor Marker [...] reference intervals for this test in the [employer] Laboratory Test Directory ([employer]). Performed By: [facility] [address] [place] [address] Apprentice Plant Attendant: Lalo Mortensen MD, PhD CLIA Number: [id number] Blood Venipuncture / Unknown 11/30/2024 11:01 AM EDT 11/30/2024 11:06 AM EDT us Destiney Llanes APRN LAB BLOOD ORDERABLES Final Result Performing Organization Address [facility]/[place] Co de Phone Number [facility] [employer] [address] [place] [address], [facility] [phone] * Glucose, Nova Meter (11/30/2024 10:46 AM EDT) Pathologist [facility] POC-GLUCOSE 102 70 - 110 mg/dL 11/30/2024 10:47 AM EDT [facility] Comment: In the event of poor peripheral blood flow, venous or arterial blood should be used due to the potential of erroneous results. Notified Nurse RBV Nurse Advisor [phone] 11/30/2024 10:47 AM EDT [facility] Blood WHOLE BLOOD / Unknown 11/30/2024 10:46 AM EDT 11/30/2024 10:47 AM EDT Narrative [facility] - 11/30/2024 10:47 AM EDT Nurse Advisor ID is - [id number] us Timothy Bai MD POINT OF CARE TEST ORDERAB LES Final Result [facility] [address] [phone] * (ABNORMAL) Vitamin D, 25-Hydroxy (11/30/2024 8:20 AM EDT) Pathologist [facility] Vitamin D 25-Hydroxy 22.0(L) 30 - 80 ng/mL 11/30/2024 9:48 AM EDT [facility] Blood Venipuncture / Unknown 11/30/2024 8:20 AM EDT 11/30/2024 9:08 AM EDT us Timothy Bai MD LAB BLOOD ORDERABLES Final Result Performing Organization Address [facility] de Phone Number [facility] [address] [phone] * Hemoglobin A1c (11/30/2024 8:20 AM EDT) Hemoglobin A1C 4.9 4.0 - 5.6 % 11/30/2024 9:17 AM EDT [facility] Comment: Hemoglobin A1C levels are related to mean glucose during the preceding 2-3 months. Less than 7% demonstrates glycemic control in diabetic patients. Hemoglobin AlC % Suggested Diagnosis > or = 6.5 Diabetic 5.7 - 6.4 Prediabetic <5.7 Non-diabetic eAVG Glucose 93.93 70 - 126 mg/dL 11/30/2024 9:17 AM EDT [facility] Blood Venipuncture / Unknown 11/30/2024 8:20 AM EDT 11/30/2024 9:07 AM EDT us Huey Hurtado MD LAB BLOOD ORDERABLES Final Resul t Performing Organization Address [facility]/[place] Co de Phone Number [facility] [address] [phone] * ECHO COMPLETE (DOPPLER / COLOR) WO CONTRAST (11/30/2024 7:50 AM EDT) Anatomical Region Laterality Modality Heart Vascular Ultraso und 11/30/2024 7:25 AM EDT Narrative 11/30/2024 10:46 AM EDT TRANSTHORACIC ECHOCARDIOGRAPHY REPORT Demographics Patient Name: RIN JONES : 1960 Age: 64 year(s) Corporate ID Number: [id number] Gender Female Industrial Training Specialist: Giovanna Rock Height: 67 inches [facility] Referring Physician: HUEY HURTADO Weight: 225 pounds Interpreting JESSICA RAYMOND MD BMI: 35.24 kg/m^2 Physician: Date of Service: 11/30/2024 Blood Pressure: 118/59 mmHg Room Number: 579 Type of Study: TTE procedure: ECHO COMPLETE (DOPPLER / COLOR) W OR WO CONTRAST. Patient Status: Routine IP Study Location: [facility] Quality: Adequate visualization History/Tech Notes: Indication: shortness [...] 1.35 m/s E/A ratio: 0.97 m/s Volume mrespofie632.99 LV length: 8.51 cm ml Volume dhpacyaj12.96 ml LVOT diameter: 1.79 cm Normal sized [...] Valve TR velocity: 2.51 m/s TR gradient: 25.49626 mmHg Estimated RAP: 3 mmHg RVSP: 28.12 [...] 1960 Age: 64 year(s) Corporate ID Number: [id number] Gender Female Industrial Training Specialist: Giovanna Rock Height: 67 inches [facility] Referring Physician: HUEY HURTADO Weight: 225 pounds Interpreting JESSICA RAYMOND MD BMI: 35.24 kg/m^2 Physician: Date of Service: 11/30/2024 Blood Pressure: 118/59 mmHg Room Number: 579 Type of Study: TTE procedure: ECHO COMPLETE (DOPPLER / COLOR) W OR WO CONTRAST. Patient Status: Routine IP Study Location: [facility] Quality: Adequate visualization History/Tech Notes: Indication: shortness [...] 1.35 m/s E/A ratio: 0.97 m/s Volume adubzkavu327.99 LV length: 8.51 cm ml Volume cpuicohv04.96 ml LVOT diameter: 1.79 cm Normal sized [...] Valve TR velocity: 2.51 m/s TR gradient: 25.22343 mmHg Estimated RAP: 3 mmHg RVSP: 28.12 [...] Glucose, Nova Meter (11/30/2024 5:13 AM EDT) [facility] POC-GLUCOSE 96 70 - 110 mg/dL 11/30/2024 5:17 AM EDT [facility] Comment: In the event of poor peripheral blood flow, venous or arterial blood should be used due to the potential of erroneous results. Protocols Followed Nurse Advisor [phone] 11/30/2024 5:17 AM EDT [facility] Blood WHOLE BLOOD / Unknown 11/30/2024 5:13 AM EDT 11/30/2024 5:17 AM EDT Narrative [facility] - 11/30/2024 5:17 AM EDT Nurse Advisor ID is - [id number] us Albert Garcia MD POINT OF CARE TEST ORDERABLES Fi nal Result Performing Organization Address City/[facility]/ZIP Co de Phone Number [facility] [address] [phone] * Blood Culture (11/30/2024 3:42 AM EDT) [facility] Result No growth in 5 days 12/05/2024 5:01 AM EDT [facility] Blood ENTIRE RIGHT UPPER ARM / Unknown Venipuncture / Unknown 11/30/2024 3:42 AM EDT 11/30/2024 4:09 AM EDT us Huey Hurtado MD MICROBIOLOGY - GENERAL ORDERABLE S Final Result [facility] [address] [phone] * Folate, Serum (11/30/2024 3:40 AM EDT) [facility] Folate 7.0 7.0 - 31.4 ng/mL 11/30/2024 6:08 PM EDT [facility] Blood Venipuncture / Unknown 11/30/2024 3:40 AM EDT 11/30/2024 4:09 AM EDT us Laura Batista MD LAB BLOOD ORDERABLES Final Res ult Performing Organization Address City/[facility]/[place] Co de Phone Number [facility] [address] [phone] * (ABNORMAL) Iron and TIBC (11/30/2024 3:40 AM EDT) Iron 63 50 - 170 ug/dL 11/30/2024 6:13 PM EDT [facility] TIBC 183(L) 250 - 435 ug/dL 11/30/2024 6:13 PM EDT [facility] % Saturation 34 % 11/30/2024 6:13 PM EDT [facility] UIBC 120 11/30/2024 6:13 PM EDT [facility] Blood Venipuncture / Unknown 11/30/2024 3:40 AM EDT 11/30/2024 4:09 AM EDT us Laura Batista MD LAB BLOOD ORDERABLES Final Res ult Performing Organization Address [facility]/ZIP Co de Phone Number [facility] [address] [phone] * Ferritin (11/30/2024 3:40 AM EDT) Ferritin 168.51 4.63 - 204.00 ng/mL 11/30/2024 6:08 PM EDT [facility] Blood Venipuncture / Unknown 11/30/2024 3:40 AM EDT 11/30/2024 4:09 AM EDT us Laura Batista MD LAB BLOOD ORDERABLES Final Res ult Performing Organization Address City/[facility]/ZIP Co de Phone Number [facility] [address] [phone] * (ABNORMAL) Lactate dehydrogenase (LDH) (11/30/2024 3:40 AM EDT) LDH 261(H) 125 - 220 U/L 11/30/2024 12:18 PM EDT [facility] Blood Venipuncture / Unknown 11/30/2024 3:40 AM EDT 11/30/2024 4:09 AM EDT Hill Boo MD LAB BLOOD ORDERABLES Final Resu lt Performing Organization Address City/[facility]/ZIP Co de Phone Number [facility] [address] [phone] * (ABNORMAL) Creatine Kinase (CK) (11/30/2024 3:40 AM EDT) Total CK 356(H) 29 - 168 U/L 11/30/2024 12:18 PM EDT [facility] Blood Venipuncture / Unknown 11/30/2024 3:40 AM EDT 11/30/2024 4:09 AM EDT us Hill Boo MD LAB BLOOD ORDERABLES Final Resu lt Performing Organization Address [facility]/[place] Co tn Phone Number [facility] [address] [phone] * (ABNORMAL) Uric acid (11/30/2024 3:40 AM EDT) Uric Acid 11.2(H) 2.5 - 6.2 mg/dL 11/30/2024 12:18 PM EDT [facility] Blood Venipuncture / Unknown 11/30/2024 3:40 AM EDT 11/30/2024 4:09 AM EDT Hill Boo MD LAB BLOOD ORDERABLES Final Resu lt Performing Organization Address [facility]/[place] Co de Phone Number [facility] [address] [phone] * Vitamin B12 (11/30/2024 3:40 AM EDT) Pathologist [facility] Vitamin B12 678 213 - 816 pg/mL 11/30/2024 8:10 AM EDT [facility] Blood Venipuncture / Unknown 11/30/2024 3:40 AM EDT 11/30/2024 4:09 AM EDT Timothy Bai MD LAB BLOOD ORDERABLES Final Result [facility] [address] [phone] * Iron, serum (11/30/2024 3:40 AM EDT) Pathologist [facility] Iron 64 50 - 170 ug/dL 11/30/2024 8:10 AM EDT [facility] Blood Venipuncture / Unknown 11/30/2024 3:40 AM EDT 11/30/2024 4:09 AM EDT Timothy Bai MD LAB BLOOD ORDERABLES Final Result [facility] [address] [phone] * (ABNORMAL) CBC - Hemogram (SJ-BKR) (11/30/2024 3:40 AM EDT) Pathologist [facility] WBC 1.9(LL) 4.0 - 10.0 K/ L 11/30/2024 4:25 AM EDT [facility] RBC 2.63(L) 3.93 - 5.22 M/ L 11/30/2024 4:25 AM EDT [facility] Hemoglobin 8.2(L) 11.2 - 15.7 GM/DL 11/30/2024 4:25 AM EDT [facility] Hematocrit 26.3(L) 34.1 - 44.9 % 11/30/2024 4:25 AM EDT [facility] MCV 100(H) 79 - 95 fL 11/30/2024 4:25 AM EDT [facility] MCH 31.2 25.6 - 32.2 pg 11/30/2024 4:25 AM EDT [facility] MCHC 31.2(L) 32.2 - 35.5 GM/DL 11/30/2024 4:25 AM EDT [facility] RDW 16.2(H) 11.7 - 14.4 % 11/30/2024 4:25 AM EDT [facility] Platelets 64(L) 140 - 375 K/CU MM 11/30/2024 4:25 AM EDT [facility] MPV 10.4 9.4 - 12.3 fL 11/30/2024 4:25 AM EDT [facility] Blood Venipuncture / Unknown 11/30/2024 3:40 AM EDT 11/30/2024 4:10 AM EDT us Huey Hurtado MD LAB BLOOD ORDERABLES Final Resul t [facility] [address] [phone] * (ABNORMAL) Comprehensive Metabolic Panel (11/30/2024 3:40 AM EDT) Sodium 144 136 - 145 meq/L 11/30/2024 5:07 AM EDT [facility] Potassium 4.6 3.4 - 5.1 meq/L 11/30/2024 5:07 AM EDT [facility] Chloride 115(H) 98 - 112 meq/L 11/30/2024 5:07 AM EDT [facility] CO2 20(L) 22 - 29 meq/L 11/30/2024 5:07 AM EDT [facility] Calcium 8.3(L) 8.4 - 10.2 mg/dL 11/30/2024 5:07 AM EDT [facility] Glucose 86 82 - 115 mg/dL 11/30/2024 5:07 AM EDT [facility] BUN 74.2(H) 9.8 - 20.1 mg/dL 11/30/2024 5:07 AM [facility] Creatinine 4.15(H) 0.57 - 1.11 mg/dL 11/30/2024 5:07 AM [facility] BUN/Creatinine 18 8 - 20 11/30/2024 5:07 AM [facility] eGFR (mL/min/1.73m2) 12(L) >=60 mL/min/1. 73m2 11/30/2024 5:07 AM [facility] Albumin 2.2(L) 3.5 - 5.0 g/dL 11/30/2024 5:07 AM [facility] Alkaline Phosphatase 83 40 - 150 U/L 11/30/2024 5:07 AM [facility] ALT 17 <=34 U/L 11/30/2024 5:07 AM [facility] Comment: ALT2 reagent used for testing does not contain P5P supplementation and therefore may miss ALT elevations in patients with B6 deficiency. This population may be as high as 10% in the [place], with risk factors including malabsorption, drug interactions, and alcoholic hepatitis. AST 43(H) 11 - 34 U/L 11/30/2024 5:07 AM [facility] Comment: AST2 reagent used for testing does not contain P5P supplementation and therefore may miss AST elevations in patients with B6 deficiency. This population may be as high as 10% in the [place], with risk factors including malabsorption, drug interactions, and alcoholic hepatitis. Total Bilirubin 0.8 0.2 - 1.2 mg/dL 11/30/2024 5:07 AM [facility] Protein, Total 6.5 6.4 - 8.3 g/dL 11/30/2024 5:07 AM [facility] Globulin 4.3(H) 2.5 - 4.1 g/dL 11/30/2024 5:07 AM [facility] Anion Gap 14(H) 4 - 12 11/30/2024 5:07 AM [facility] A/G Ratio 0.5(L) 0.7 - 1.9 11/30/2024 5:07 AM [facility] Osmolality Calc 308.1 mOsm/kg 5:07 AM EDT [facility] Blood Venipuncture / Unknown 11/30/2024 3:40 AM EDT 11/30/2024 4:09 AM EDT us Huey Hurtado MD LAB BLOOD ORDERABLES Final Resul t Performing Organization Address [facility] Co de Phone Number [facility] [address] [phone] * Procalcitonin (11/30/2024 3:40 AM EDT) Procalcitonin 0.26 See Comment ng/mL 11/30/2024 5:07 AM EDT [facility] Comment: Sepsis comment <0.5 Antibiotics Discouraged [...] 3:40 AM EDT 11/30/2024 4:09 AM EDT Result Archana Hurtado MD LAB BLOOD ORDERABLES Final Resul t [facility] [address] [place] [address], [facility] [phone] * Blood Culture (11/30/2024 3:40 AM EDT) Result No growth in 5 days 12/05/2024 5:01 AM EDT [facility] Blood ENTIRE LEFT UPPER ARM / Unknown Venipuncture / Unknown 11/30/2024 3:40 AM EDT 11/30/2024 4:09 AM EDT us Huey Hurtado MD MICROBIOLOGY - GENERAL ORDERABLE S Final Result Performing Organization Address [facility] Co de Phone Number [facility] [address] [phone] * Ammonia (11/30/2024 3:40 AM EDT) Ammonia 59 18 - 72 mol/L 11/30/2024 4:51 AM EDT [facility] Blood Venipuncture / Unknown 11/30/2024 3:40 AM EDT 11/30/2024 4:10 AM EDT us Huey Hurtado MD LAB BLOOD ORDERABLES Final Resul t Performing Organization Address [facility] Co de Phone Number [facility] [address] [phone] * (ABNORMAL) Magnesium (11/30/2024 3:40 AM EDT) Magnesium 2.7(H) 1.6 - 2.6 mg/dL 11/30/2024 5:07 AM EDT [facility] Blood Venipuncture / Unknown 11/30/2024 3:40 AM EDT 11/30/2024 4:09 AM EDT us Huey Hurtado MD LAB BLOOD ORDERABLES Final Resul t Performing Organization Address [facility] Co de Phone Number [facility] [address] [phone] * Lactic Acid with reflex (11/30/2024 3:40 AM EDT) Lactic Acid Level (mmol/L) 0.9 0.5 - 2.2 mmol/L 11/30/2024 5:37 AM EDT [facility] Blood Venipuncture / Unknown 11/30/2024 3:40 AM EDT 11/30/2024 4:10 AM EDT us Huey Hurtado MD LAB BLOOD ORDERABLES Final Resul t [facility] [address] [phone] * aPTT (11/30/2024 3:40 AM EDT) aPTT 27.7 22.0 - 32.0 seconds 11/30/2024 4:32 AM EDT [facility] Blood Venipuncture / Unknown 11/30/2024 3:40 AM EDT 11/30/2024 4:10 AM EDT us Huey Hurtado MD LAB BLOOD ORDERABLES Final Resul t Performing Organization Address [facility] Co de Phone Number [facility] [address] [phone] * (ABNORMAL) Prothrombin time/INR (11/30/2024 3:40 AM EDT) Protime 12.9(H) 9.0 - 12.0 seconds 11/30/2024 4:32 AM EDT [facility] INR 1.17(H) 0.80 - 1.10 11/30/2024 4:32 AM EDT [facility] Comment: Recommended therapeutic ranges using International [...] ORDERABLES Final Resul t Performing Organization Address City/[facility]/ZIP Co de Phone Number [facility] [address] [phone] * EKG-SCANNED (11/30/2024) Narrative 11/30/2024 Ordered by [...] Edema Melena Blood in stool Anasarca Edema Melena Blood in stool documented in this encounter Admitting Diagnoses Diagnosis [...] Given 12/09/2024 4:53 AM EDT 500 mg albuterol 2.5 mg /3 mL (0.083 %) nebulizer solution 2.5 mg 2.5 mg Every 6 hours PRN, nebulization, wheezing, Starting on Fri11/30/24 at 0410, RESPIRATORY THERAPY TREATMENT , What is the respiratory therapy Modality? Small volume Nebulization amiodarone (PACERONE) tablet 200 mg 200 mg Daily, oral, First dose on Fri12/04/24 at 1130 Given 12/14/2024 9:30 AM EDT 200 mg Given 12/13/2024 9:02 AM EDT 200 mg Given 12/12/2024 8:40 AM EDT 200 mg atorvastatin (LIPITOR) tablet 20 mg 20 mg Every Night, oral, First dose on Fri11/30/24 at 2100 Given 12/13/2024 8:31 PM EDT 20 mg Given 12/12/2024 9:44 PM EDT 20 mg Given 12/11/2024 8:18 PM EDT 20 mg benzocaine-menthoL (CEPACOL) lozenge 1 lozenge 1 lozenge Every 2 hour PRN, buccal, sore throat, Starting on Fri12/04/24 at 0807 bumetanide (BUMEX) tablet 2 mg 2 mg 2 times daily, oral, First dose (after last modification) on Fri12/10/24 at 1300 Given 12/14/2024 9:30 AM EDT 2 mg Given 12/13/2024 8:31 PM EDT 2 mg Given 12/13/2024 9:03 AM EDT 2 mg dextrose 50% (D50W) injection 25 g 25 [...] Given 11/30/2024 2:59 PM EDT 50,000 Units gabapentin (NEURONTIN) capsule 100 mg 100 mg 3 times daily, oral, First dose (after last modification) on Fri12/07/24 at 1500Indications:Anasarca Given 12/14/2024 4:08 PM EDT 100 mg Given 12/14/2024 9:30 AM EDT 100 mg Given 12/13/2024 8:31 PM EDT 100 mg glucagon injection 1 mg 1 mg [...] Blood Sugar is less than 180 beteween 0742-5413, DO NOT give corrective insulin unless otherwise [...] PM EDT 6 Units Ab dominal Tissue lactulose (CHRONULAC) 10 gram/15 mL solution 10 g 10 g 2 times daily, oral, First dose (after last modification) on 12/05/24 at 2100 Given 12/14/2024 9:31 AM EDT 10 g Given 12/13/2024 8:32 PM EDT 10 g Given 12/13/2024 9:02 AM EDT 10 g melatonin tablet 3 mg 3 mg Every Night PRN, oral, insomnia, Starting on Fri11/30/24 at 0302, On hold since Fri12/07/2024 at 1419 until manually unheld metOLazone (ZAROXOLYN) tablet 2.5 mg 2.5 mg Daily, oral, First dose (after last reorder) on 12/11/24 at 1030 Given 12/14/2024 9:30 AM EDT 2.5 mg Given 12/13/2024 9:03 AM EDT 2.5 mg Given 12/12/2024 8:58 AM EDT 2.5 mg ondansetron (ZOFRAN) injection 4 mg 4 [...] Given 12/13/2024 9:02 AM EDT 40 mg prochlorperazine (COMPAZINE) injection [...] 12/13/2024 9:02 AM EDT 550 mg sodium chloride flush 10 mL 10 mL [...] Given 12/12/2024 8:40 AM EDT 12.5 mg tamsulosin (FLOMAX) capsule 0.4 mg 0.4 [...] Mcmillan, DAYANARA) 0930 (Given - Provider: Olimpia Mcmillan RN) atorvastatin (LIPITOR) tablet 20 mg 20 mg [...] RN) 09 (Given - Provider: Olimpia Mcmillan RN)2030 (Given [...] Olimpia Mcmillan RN)1420 (Given - Provider: Olimpia Mcmillan, RN)2031 (Given - Provider: Jamal Lopez, DAYANARA) 0930 (Given - Provider: Olimpia Mcmillan RN)1608 (Given - Provider: Olimpia Mcmillan RN) insulin lispro (HUMALOG, ADMELOG) injection 0-18 Units 0-18 Units 4 times daily (before meals and nightly), subcutaneous, First dose on Fri11/30/24 at 0730, If Blood Sugar is less than 180 beteween [id number], DO NOT give corrective insulin unless otherwise [...] Sidhu RN) 09 (Given - Provider: Olimpia Mcmillan RN) 09 (Given - Provider: Olimpia Mcmillan RN) pantoprazole [...] DAYANARA) 1608 (Given - Provider: Olimpia Mcmillan, RN) PRN Medication Order 12/12/2024 12/13/2024 12/14/2024 [...] flush documented in this encounter Care Teams Tinning Machine Set Up Operator Relationship Specialty Start Date End Date [facility], [facility] [place] [address] PCP - General 11/30/24 12/13/24 documented as of this encounter
[2025-01-17 18:47] LABS: Hematocrit 34.6 % (37.0-47.0); Hemoglobin 10.5 g/dL (12.2-16.2); Immature Granulocytes # 0.02 10^3uL; Immature Granulocytes % 1.4 %; Lymphocytes # 0.6 K/mm3 (0.7-4.5); Lymphocytes % 39.2 % (10-50); Mean Corpuscular HGB Conc 30.3 g/dL (31.8-35.4); Mean Corpuscular Hemoglobin 29.7 pg (27.0-31.2); Mean Platelet Volume 12.9 fl (7.4-10.4); Monocytes # 0.1 K/mm3 (0.1-1.0); Monocytes % 6.3 % (1.7-9.3); Neutrophils # 0.8 K/mm3 (1.8-7.8); Neutrophils % 53.1 % (37.0-80.0); Nucleated Red Blood Cells # 0 10^3/uL; Nucleated Red Blood Cells % 0 %; Red Blood Count 3.53 M/mm3 (4.20-5.40); Red Cell Distribution Width 15.7 % (11.5-17.5); Red Cell Distribution Width-SD 56.7 fL
[2025-01-17 19:02] LABS: Creatinine,Urine Random 105 mg/dL (Not Estab.)
[2025-01-17 19:07] LABS: Microalbumin/Creatinine Ratio 19.1
[2025-01-17 19:13] LABS: Platelet Count 46 K/mm3 (142-424); White Blood Count 1.4 K/mm3 (4.8-10.8)
[2025-01-17 19:15] LABS: MANUAL DIFFERENTIAL MANUAL DIFFERENTIAL (MANUAL DIFF)
[2025-01-17 19:24] LABS: Albumin Level 3.6 g/dl (3.5-5.0); Chloride 100 mmol/L (98-107); Potassium 4.7 mmoL/L (3.5-5.1); Sodium 138 mmol/L (136-145)
[2025-01-17 19:26] LABS: Blood Urea Nitrogen 39 mg/dl (7-17); Estimated Glomerular Filt Rate 15 ml/min (>60); GFR (African American) 18 ML/MIN (>60)
[2025-01-17 19:27] LABS: Alanine Aminotransferase 16 U/L (12-78); Albumin/Globulin Ratio 0.9 (1.1-1.8); Alkaline Phosphatase 109 U/L (38-126); Anion Gap 12.7 mEq/L (5-15); Aspartate Amino Transferase 41 U/L (14-36); Bilirubin,Total 1.3 mg/dl (0.2-1.3); Calcium 8.8 mg/dl (8.4-10.2); Carbon Dioxide 30 mmol/L (22.0-30.0); Globulin 4.2 g/dL (1.3-3.2); Glucose 220 mg/dl (74-100); Total Protein,Serum 7.8 g/dl (6.3-8.2)
[2025-01-17 19:33] LABS: Lymphocytes % 28 % (10-50); Monocytes % 10 % (2-9); Neutrophils % 62 % (42-76); Platelet Estimate Marked Decrease; Total Cells Counted 100
[2025-01-17 19:34] LABS: Anisocytosis 1+; Macrocytosis 1+; Microcytosis 1+; Ovalocytes 1+; Poikilocytosis 1+; Tear Drop Cells 1+
[2025-01-17 19:35] LABS: Target Cells 1+
[2025-01-17 20:43] LABS: Free Thyroxine Index 4.7 ug/dL (5.93-13.13); T4 (Thyroxine) 9.3 ug/dl (5.53-11.0); Triiodothryronine (T3) Uptake 50 % (23.5-40.5)
[2025-01-17 20:57] LABS: Thyroid Stimulating Hormone 0.41 uIU/mL (0.465-4.68)
--- OUTSIDE RECORDS SUMMARY | 2025-01-19 10:49 | XMS_ITS | Encounter Summary ---
Author Organization Healthcare Address [address] 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, unspecified vessel or lesion type (CMS/[facility]) Social History Tobacco Use Types Packs/Day Years [...] Care Team (Late st Contact Info) Description 02/22/2025 7:45 AM EDT Clinical Support [facility] [address] [place] [address] 02/22/2025 9:20 AM EDT Office Visit [facility] Transplant [place] [address] [place] [facility] [address] [place] [address] Ollie Calvo MD [address] [place] [facility] [address] [place] [address] 02/22/2025 10:00 AM EDT Office Visit [facility] Transplant [place] [address] [place] [facility] [address] [place] [address] Surgeon, 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 documented as of this encounter Visit Diagnoses Diagnosis CKD (chronic kidney disease) stage 2, GFR 60-89 ml/min Chronic kidney disease, Stage II (mild) Microalbuminuria Proteinuria 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, unspecified vessel or lesion type (CMS/HCC) documented in this encounter Additional Health Concerns Assessment Noted Time A fall risk assessment has been complete d for the patient 01/02/2022 1:17 PM EDT A Body Mass Index follow-up plan has been documented for the patient 11/13/2022 11:41 AM EDT documented as of this encounter Care Teams Ground Hand Relationship Specialty Start Date End Date Larry Bedolla MD [address] [place] [address] PCP - General 12/08/20 01/18/25 Monika Hernandez APRN [address] [place] [address] PCP - General 01/19/25 Sary Brannon APRN [address] [place] [address] Referring Physician Gastroenterology 01/07/25 documented as of this encounter
--- OUTSIDE RECORDS SUMMARY | 2025-01-19 10:49 | XMS_ITS | Encounter Summary ---
Author Organization [facility] [employer] Address [address] [place] [address] Care Team Providers Care Silk Screen Printer Machine Name Role Phone [facility], Find-A-Doc Primary Care Provider Reason for Visit * Reason Onset Date Comments Appointment 12/06/2024 Encounter Details Date Type Department Care Team (Late st Contact Info) Description 12/06/2024 Telephone [facility] - [place] [address] [place] [address] Mimi Moreno, RN Appointment Social [...] your living situation today? I have a [facility] place to live 11/30/2024 Think about [...] speak a language other than Maltese at [facility]? No 11/30/2024 Do you want help [...] Office Visit [facility] Electrophysiology [address] [place] [address] Quincy Foss MD [address] [place] [address] [address] [place] [address] documented as of this encounter Visit Diagnoses Not on filedocumented in this encounter Care Teams Silk Screen Printer Machine Relationship Specialty Start Date End Date [facility], Find-A-Doc [facility] [place] [address] PCP - General 11/30/24 12/13/24 documented as of this encounter
--- OUTSIDE RECORDS SUMMARY | 2025-01-19 10:50 | XMS_ITS | Referral Summary ---
Author Organization [employer] Address [address] [place] [address] Care Team Providers Care Cork Pressing Machine Operator Name Role Phone Provider, Not In System Primary Care Provider Un available Encounters Date Type Department Care Team Description 11/30/2024 1:43 AM EDT - 12/14/2024 5:30 PM EDT Hospital Encounter [facility] 5B Medical Telemetry Unit 1 [place] [address] Albert Garcia MD Shamsulddin, Haider, MD Zohary, Yasser, MD Majeed, Irfan, MD Edie, Joseph A, Huey Plasencia MD Melena (Primary Dx); Anasarca Discharge Disposition: Home or Self Care 12/06/2024 Telephone [facility] - [place] [address] [place] [address] Mimi Moreno RN Appointment 12/01/2024 8:55 AM EDT Anesthesia Event [facility] Endoscopy [address] [place] [address] Isabell-Ashtyn Rowley MD 12/01/2024 9:19 AM EDT - 12/01/2024 9:50 AM EDT Surgery [facility] Endoscopy [address] [place] [address] Scott Daley MD EGD, WITH FOREIGN BODY REMOVAL 11/30/2024 Travel from Last 3 Months Allergies No known active allergies Medications hydrOXYzine pamoate (VISTARIL) 50 MG capsule Take 1 capsule (50 mg total) by mouth every night as needed for itching (sleep) Look-alike/S ound-alike medication. Active ammonium lactate (AMLACTIN) 12 % [...] (six) hours as needed for wheezing. Active HYDROcodone-rocky taminophen (NORCO) 10-325 mg per tablet Take 1 tablet by mouth every 6 (six) hours as needed for pain. Max Daily Amount: 4 tablets Active lactulose (CHRONULAC) 10 gram/15 mL solution Take 15 mLs (10 g total) by mouth 2 (two) times daily. 900 mL 5 Active rifAXIMin (XIFAXAN) 550 mg Take 1 tablet (550 mg total) by mouth 2 (two) times daily. 60 tablet 5 Active bumetanide (BUMEX) 2 MG tablet Take 1 tablet (2 mg total) by mouth 2 (two) times daily. 60 tablet 5 Active metOLazone (ZAROXOLYN) 2.5 MG tablet Take 1 tablet (2.5 mg total) by mouth daily as needed. 30 tablet 5 Active spironolactone (ALDACTONE) 25 MG tablet Take 0.5 tablets (12.5 mg total) by mouth daily. 15 tablet 5 Active amiodarone (PACERONE) 200 MG tablet Take 1 tablet (200 mg total) by mouth daily for 30 days. 30 tablet 5 01/07/20 25 ergocalciferol (DRISDOL) 1,250 mcg (50,000 unit) capsule Take 1 capsule (50,000 Units total) by mouth every 7 days for 30 days. 4 capsule 5 01/07/20 25 pantoprazole (PROTONIX) 40 MG tablet Take 1 tablet (40 mg total) by mouth 2 (two) times daily for 30 days. 60 tablet 5 01/06/20 25 tamsulosin (FLOMAX) 0.4 mg cap 24 hr capsule Take 1 capsule (0.4 mg total) by mouth every evening for 30 days. 30 capsule 5 01/14/20 25 Active Problems Problem Noted Date Diagnosed Date [...] your living situation today? I have a [facility] place to live 11/30/2024 Think about [...] Do you speak a language other than [place] [facility]? No 11/30/2024 Do you want help with [...] Description 01/27/2025 10:45 AM EDT Office Visit [facility] Electrophysiology [address] [place], [place] [id number] Deysi Jon MD [address] [place] [address] [address] [place] [address] Procedures Procedure Name Priority Date/Time Associated Diagnosis [...] GLUCOSE POC Routine 12/13/2024 5:46 AM EDT [facility] CBC SCAN Routine 12/13/2024 3:15 [...] GLUCOSE POC Routine 12/12/2024 5:43 AM EDT [facility] CBC SCAN Routine 12/12/2024 3:47 [...] ANESTHESIA INTUBATION Routine 12/01/2024 9:01 AM EDT [place] EGD FLEXIBLE FOREIGN BODY [...] PARACENTESIS Routine 11/30/2024 4:17 PM EDT CYTOLOGY ([facility]) AP Routine 11/30/2024 4:03 PM EDT Melena PROTEIN, BODY FLUID Routine 11/30/2024 4 :03 PM EDT GLUCOSE, BODY FLUID Routine 11/30/2024 4 :03 PM EDT BODY FLUID/CSF- PATH REVIEW LAB ONLY ([facility]) Routine 11/30/2024 4:03 PM EDT Melena [facility] DIFFERENTIAL, BODY FLUID Routine 11/30/2024 4:03 PM EDT Melena AFB CULTURE AND STAIN Routine 11/30/2024 4:03 PM EDT Melena FUNGUS CULTURE W/ROSA MARIA OR VIRGEN INK Routine 11/30/2024 4:03 PM EDT Melena [...] of63 resultswithin the time period is included. Pathologist [facility] POC-GLUCOSE 203(H) 70 - 110 mg/dL 12/14/2024 3:42 PM EDT [facility] Comment: In the event of poor peripheral blood flow, venous or arterial blood should be used due to the potential of erroneous results. Notified Nurse [employer]BV Production Utility Worker [id number] 12/14/2024 3:42 PM EDT [facility] Blood WHOLE BLOOD / Unknown 12/14/2024 3:41 PM EDT 12/14/2024 3:42 PM EDT Narrative [facility] - 12/14/2024 3:42 PM EDT Production Utility Worker ID is - [id number] us David Coffman PA-C POINT OF CARE TEST ORDERABLES Final Result [facility] [address] [phone] * ECG 12 lead (12/14/2024 9:10 AM EDT) Only the most recent of13 resultswithin the time period is included. Pathologist [facility] VENTRICULAR RATE EKG/MIN 89 BPM GE MUSE ATRIAL RATE (MCT) 89 BPM GE MUSE [place] Interval 146 ms GE MUSE QRS-INTERVAL (MSEC) 86 ms GE MUSE QT Interval 432 ms GE MUSE QTC Interval 525 ms GE MUSE P [place] 34 degrees GE MUSE R AXIS (MCT) -13 degrees GE MUSE T Wave [place] -2 degrees GE MUSE [place] Diagnosis Normal sinus rhythm Septal infarct (cited [...] 10.0 K/ L 12/14/2024 3:45 AM EDT [facility] RBC 2.45(L) 3.93 - 5.22 M/ L 12/14/2024 3:45 AM EDT [facility] Hemoglobin 7.6(L) 11.2 - 15.7 GM/DL 12/14/2024 3:45 AM EDT [facility] Hematocrit 24.1(L) 34.1 - 44.9 % 12/14/2024 3:45 AM EDT [facility] MCV 98(H) 79 - 95 fL 12/14/2024 3:45 AM EDT [facility] MCH 31.0 25.6 - 32.2 pg 12/14/2024 3:45 AM EDT [facility] MCHC 31.5(L) 32.2 - 35.5 GM/DL 12/14/2024 3:45 AM EDT [facility] RDW 16.3(H) 11.7 - 14.4 % 12/14/2024 3:45 AM EDT [facility] Platelets 51(L) 140 - 375 K/CU MM 12/14/2024 3:45 AM EDT [facility] MPV 12.3 9.4 - 12.3 fL 12/14/2024 3:45 AM EDT [facility] % Neutros 54 34 - 71 % 12/14/2024 3:45 AM EDT [facility] % Lymphs 32 19 - 52 % 12/14/2024 3:45 AM EDT [facility] % Monos 14(H) 5 - 13 % 12/14/2024 3:45 AM EDT [facility] % Eos 0(L) 1 - 6 % 12/14/2024 3:45 AM EDT [facility] % Baso 1 0 - 1 % 12/14/2024 3:45 AM EDT [facility] NRBC Absolute <0.01 0 - 0.012 K/ul 12/14/2024 3:45 AM EDT [facility] # Neutros 0.76(L) 1.56 - 6.13 K/ L 12/14/2024 3:45 AM EDT [facility] # Lymphs 0.45(L) 1.18 - 3.74 K/ L 12/14/2024 3:45 AM EDT [facility] # Monos 0.19(L) 0.24 - 0.86 K/ L 12/14/2024 3:45 AM EDT [facility] # Eos <0.03(L) 0.04 - 0.36 K/ L 12/14/2024 3:45 AM EDT [facility] # Baso <0.03 0.01 - 0.08 K/ L 12/14/2024 3:45 AM EDT [facility] Immature Granulocytes-Re lative 0.00(L) 0.01 - 0.43 % 12/14/2024 3:45 AM EDT [facility] # IG <0.03 0.00 - 0.03 K/uL 12/14/2024 3:45 AM EDT [facility] Blood Venipuncture / Unknown 12/14/2024 2:54 AM EDT 12/14/2024 3:27 AM EDT [facility] - 12/14/2024 3:45 AM EDT When [...] PA-C LAB BLOOD ORDERABLES Final Re sult [facility] [address] [place] [id number], [facility] [phone] * (ABNORMAL) Comprehensive metabolic panel (12/14/2024 2:54 AM EDT) Only the most recent of9 resultswithin the time period is included. Sodium 145 136 - 145 meq/L 12/14/2024 4:13 AM EDT [facility] Potassium 3.5 3.4 - 5.1 meq/L 12/14/2024 4:13 AM EDT [facility] Chloride 109 98 - 112 meq/L 12/14/2024 4:13 AM EDT [facility] CO2 27 22 - 29 meq/L 12/14/2024 4:13 AM EDT [facility] Calcium 8.6 8.4 - 10.2 mg/dL 12/14/2024 4:13 AM EDT [facility] Glucose 146(H) 82 - 115 mg/dL 12/14/2024 4:13 AM EDT [facility] BUN 67.7(H) 9.8 - 20.1 mg/dL 12/14/2024 4:13 AM EDT [facility] Creatinine 2.22(H) 0.57 - 1.11 mg/dL 12/14/2024 4:13 AM EDT [facility] BUN/Creatinine 30(H) 8 - 20 12/14/2024 4:13 AM EDT [facility] eGFR (mL/min/1.73m2) 25(L) >=60 mL/min/1. 73m2 12/14/2024 4:13 AM EDT [facility] Albumin 3.2(L) 3.5 - 5.0 g/dL 12/14/2024 4:13 AM EDT [facility] Alkaline Phosphatase 56 40 - 150 U/L 12/14/2024 4:13 AM EDT [facility] ALT 21 <=34 U/L 12/14/2024 4:13 AM EDT [facility] Comment: ALT2 reagent used for testing does not contain P5P supplementation and therefore may miss ALT elevations in patients with B6 deficiency. This population may be as high as 10% in the [place], with risk factors including malabsorption, drug interactions, and alcoholic hepatitis. AST 52(H) 11 - 34 U/L 12/14/2024 4:13 AM EDT [facility] Comment: AST2 reagent used for testing does not contain P5P supplementation and therefore may miss AST elevations in patients with B6 deficiency. This population may be as high as 10% in the [place], with risk factors including malabsorption, drug interactions, and alcoholic hepatitis. Total Bilirubin 0.9 0.2 - 1.2 mg/dL 12/14/2024 4:13 AM EDT [facility] Protein, Total 5.9(L) 6.4 - 8.3 g/dL 12/14/2024 4:13 AM EDT [facility] Globulin 2.7 2.5 - 4.1 g/dL 12/14/2024 4:13 AM EDT [facility] Anion Gap 13(H) 4 - 12 12/14/2024 4:13 AM EDT [facility] A/G Ratio 1.2 0.7 - 1.9 12/14/2024 4:13 AM EDT [facility] Osmolality Calc 311.0 mOsm/kg 4:13 AM EDT [facility] Blood Venipuncture / Unknown 12/14/2024 2:54 AM EDT 12/14/2024 3:26 AM EDT Dvaid Coffman PA-C LAB BLOOD ORDERABLES Final Re sult [facility] 1 [place], [place] [address] [phone] * (ABNORMAL) CBC Scan (12/13/2024 3:15 AM EDT) Only the most recent of2 resultswithin the time period is included. Platelet Estimate Decreased (A) Adequate 12/13/2024 4:55 AM EDT [facility] RBC Morphology abnormal( A) Normal 12/13/2024 4:55 AM EDT [facility] Anisocytosis 1+ 12/13/2024 4:55 AM EDT [facility] Hypochromia 1+ 12/13/2024 4:55 AM EDT [facility] Ovalocytes 1+ 12/13/2024 4:55 AM EDT [facility] Blood Venipuncture / Unknown 12/13/2024 3:15 AM EDT 12/13/2024 3:27 AM EDT us Venkatesh Stephen MD LAB BLOOD ORDERABLES Final Resul t [facility] [address] [phone] * (ABNORMAL) Hepatic function panel (12/13/2024 3:15 AM EDT) Protein, Total 5.7(L) 6.4 - 8.3 g/dL 12/13/2024 4:13 AM EDT [facility] Albumin 3.1(L) 3.5 - 5.0 g/dL 12/13/2024 4:13 AM EDT [facility] Total Bilirubin 0.8 0.2 - 1.2 mg/dL 12/13/2024 4:13 AM EDT [facility] Bilirubin, Direct 0.4 0.0 - 0.5 mg/dL 12/13/2024 4:13 AM EDT [facility] Alkaline Phosphatase 53 40 - 150 U/L 12/13/2024 4:13 AM EDT [facility] Globulin 2.6 2.5 - 4.1 g/dL 12/13/2024 4:13 AM EDT [facility] A/G Ratio 1.2 0.7 - 1.9 12/13/2024 4:13 AM EDT [facility] AST 42(H) 11 - 34 U/L 12/13/2024 4:13 AM EDT [facility] Comment: AST2 reagent used for testing does not contain P5P supplementation and therefore may miss AST elevations in patients with B6 deficiency. This population may be as high as 10% in the [place], with risk factors including malabsorption, drug interactions, and alcoholic hepatitis. ALT 16 <=34 U/L 12/13/2024 4:13 AM EDT [facility] Comment: ALT2 reagent used [...] MD LAB BLOOD ORDERABLES Final Resu lt [facility] [address] [phone] * (ABNORMAL) Basic Metabolic Panel (12/13/2024 3:15 AM EDT) Only the most recent of6 resultswithin the time period is included. Sodium 147(H) 136 - 145 meq/L 12/13/2024 4:13 AM EDT [facility] Potassium 3.5 3.4 - 5.1 meq/L 12/13/2024 4:13 AM EDT [facility] CO2 27 22 - 29 meq/L 12/13/2024 4:13 AM EDT [facility] Chloride 110 98 - 112 meq/L 12/13/2024 4:13 AM EDT [facility] Glucose 135(H) 82 - 115 mg/dL 12/13/2024 4:[facility] BUN 71.9(H) 9.8 - 20.1 mg/dL 12/13/2024 4:[facility] Creatinine 2.29(H) 0.57 - 1.11 mg/dL 12/13/2024 4:13 AM EDT [facility] BUN/Creatinine 31(H) 8 - 20 12/13/2024 4:13 AM EDT [facility] Calcium 8.5 8.4 - 10.2 mg/dL 12/13/2024 4:13 AM EDT [facility] Anion Gap 14(H) 4 - 12 12/13/2024 4:13 AM EDT [facility] eGFR (mL/min/1.73m2) 24(L) >=60 mL/min/1.7 3m2 12/13/2024 4:13 AM EDT [facility] Osmolality Calc 315.6 mOsm/kg 4:13 AM EDT [facility] Blood Venipuncture / Unknown 12/13/2024 3:15 AM EDT 12/13/2024 3:39 AM EDT us Venkatesh Stephen MD LAB BLOOD ORDERABLES Final Resul t [facility] [address] [place] [address] * US paracentesis (12/10/2024 11:37 AM EDT) [...] Ascites. ATTENDING PHYSICIAN: Dr. Haseeb Gil PHYSICIAN LAMP WIRER: Sujit Blackman PA-C FINDINGS: After informed consent [...] Ascites. ATTENDING PHYSICIAN: Dr. Haseeb Gil PHYSICIAN LAMP WIRER: Sujit Blackman PA-C FINDINGS: After informed consent [...] Blackman PA-C. us Mary Carmen Mcfadden MD [facility] US ORDERABLES Final Result * ALT (SGPT) (12/10/2024 9:53 AM EDT) ALT 12 <=34 U/L 12/10/2024 11:02 AM EDT [facility] Comment: ALT2 reagent used [...] MD LAB BLOOD ORDERABLES Final Resul t [facility] [address] [place], [place] [address] [phone] * (ABNORMAL) AST (SGOT) (12/10/2024 9:53 AM EDT) AST 39(H) 11 - 34 U/L 12/10/2024 11:02 AM EDT [facility] Comment: AST2 reagent used for testing does not contain P5P supplementation and therefore may miss AST elevations in patients with B6 deficiency. This population may be as high as 10% in the [facility], with risk factors including malabsorption, drug interactions, and alcoholic hepatitis. [employer] has become aware of sulfasalazine and sulfapyridine [...] MD LAB BLOOD ORDERABLES Final Resul t [facility] [address] [phone] * Magnesium (12/10/2024 9:53 AM EDT) Only the most recent of9 resultswithin the time period is included. Pathologist [facility] Magnesium 2.3 1.6 - 2.6 mg/dL 12/10/2024 11:02 AM EDT [facility] Blood Venipuncture / Unknown 12/10/2024 9:53 AM EDT 12/10/2024 10:39 AM EDT Deysi Jon MD LAB BLOOD ORDERABLES Final Resul t Performing Organization Address City/[facility]/ZIP Co de Phone Number [facility] [address] [phone] * XR chest AP portable (12/10/2024 9:10 [...] 7.35 - 7.45 12/10/2024 6:51 AM EDT [facility] pCO2, Arterial 49(H) 35 - 45 mm Hg 12/10/2024 6:51 AM EDT [facility] pO2, Arterial 119(H) 80 - 100 mm Hg 12/10/2024 6:51 AM EDT [facility] HCO3, Arterial 24 20 - 26 mmol/L 12/10/2024 6:51 AM EDT [facility] Base Excess, Arterial -2.4(L) -2.0 - 2.0 mmol/L 12/10/2024 6:51 AM EDT [facility] O2 Sat, Arterial >99.2 95.0 - 100.0 % 12/10/2024 6:51 AM EDT [facility] Comment:notified at read-anny k verification CTO2 ARTERIAL 11.9 mmol/L 12/10/2024 6:51 AM EDT [facility] THB ARTERIAL 8.5(L) 12.0 - 18.0 g/dL 12/10/2024 6:51 AM EDT [facility] COLLECTION SITE Left Radial 12/10/2024 6:51 AM EDT [facility] Arterial Puncture Yes 12/10/2024 6:51 AM EDT [facility] Blood Gas O2 Delivery Device Cannula 12/10/2024 6:51 AM EDT [facility] Oxygen Flow Rate 4 12/11/19 25 6:51 AM EDT [facility] Blood Gas PT Temperature C 37.0 12/10/2024 6:51 AM EDT [facility] Sen's Test Acceptable 12/10/2024 6:51 AM EDT [facility] ABG Number of Draw Attempts 1 12/10/2024 6:51 AM EDT [facility] FIO2 12/10/2024 6:51 AM EDT [facility] Blood Gas Temperature Corrected Results No No 12/10/2024 6:51 AM EDT [facility] Blood, Arterial Collection / Unknown 12/10/2024 6:42 AM EDT 12/10/2024 6:51 AM EDT us Blanka Alvarez MD LAB BLOOD ORDERABLES Final Re sult [facility] [address] [phone] * (ABNORMAL) CBC - Hemogram ([facility]) (12/09/2024 3:38 AM EDT) Only the most recent of8 resultswithin the time period is included. WBC 2.4(L) 4.0 - 10.0 K/ L 12/09/2024 3:59 AM EDT [facility] RBC 2.83(L) 3.93 - 5.22 M/ L 12/09/2024 3:59 AM EDT [facility] Hemoglobin 8.5(L) 11.2 - 15.7 GM/DL 12/09/2024 3:59 AM EDT [facility] Hematocrit 28.0(L) 34.1 - 44.9 % 12/09/2024 3:59 AM EDT [facility] MCV 99(H) 79 - 95 fL 12/09/2024 3:59 AM EDT [facility] MCH 30.0 25.6 - 32.2 pg 12/09/2024 3:59 AM EDT [facility] MCHC 30.4(L) 32.2 - 35.5 GM/DL 12/09/2024 3:59 AM EDT [facility] RDW 17.2(H) 11.7 - 14.4 % 12/09/2024 3:59 AM EDT [facility] Platelets 55(L) 140 - 375 K/CU MM 12/09/2024 3:59 AM EDT [facility] MPV 11.5 9.4 - 12.3 fL 12/09/2024 3:59 AM EDT [facility] Blood Venipuncture / Unknown 12/09/2024 3:38 AM EDT 12/09/2024 3:45 AM EDT us Mary Carmen Mcfadden MD LAB BLOOD ORDERABLES Final Resu lt [facility] [address] [place] [address], [facility] [phone] * Erythropoietin(SENDOUT) (12/07/2024 3:59 AM EDT) Erythropoietin 19 4 - 27 mU/mL 12/08/2024 2:30 PM EDT [facility] Comment: INTERPRETIVE INFORMATION: Erythropoietin Normal serum concentrations [...] recombinant EPO ([facility] [phone],1989). Performed By: [employer] [address] [place] [address] Reproduction Specialist: Lalo Mortensen MD, PhD CLIA Number: [id number] Blood Venipuncture / Unknown 12/07/2024 3:59 AM EDT 12/07/2024 4:11 AM EDT us Ariel Mills MD LAB BLOOD ORDERABLES Final Res ult [facility] [address] [place] [address], [facility] [phone] * Ammonia (12/07/2024 3:59 AM EDT) Only the most recent of8 resultswithin the time period is included. Ammonia 44 18 - 72 mol/L 12/07/2024 4:37 AM EDT [facility] Blood Venipuncture / Unknown 12/07/2024 3:59 AM EDT 12/07/2024 4:22 AM EDT Timothy Bai MD LAB BLOOD ORDERABLES Final Result Performing Organization Address City/[facility]/ZIP Co de Phone Number [facility] [address] [phone] * (ABNORMAL) Ferritin (12/06/2024 3:13 AM EDT) Only the most recent of2 resultswithin the time period is included. Ferritin 256.82(H) 4.63 - 204.00 ng/mL 12/06/2024 8:25 AM EDT [facility] Blood Venipuncture / Unknown 12/06/2024 3:13 AM EDT 12/06/2024 3:50 AM EDT Ariel Mills MD LAB BLOOD ORDERABLES Final Res ult Performing Organization Address [facility] Co de Phone Number [facility] [address] [phone] * (ABNORMAL) Hemoglobin (12/05/2024 3:36 PM EDT) Only the most recent of11 resultswithin the time period is included. Hemoglobin 8.1(L) 11.2 - 15.7 GM/DL 12/05/2024 3:57 PM EDT [facility] Blood Venipuncture / Unknown 12/05/2024 3:36 PM EDT 12/05/2024 3:47 PM EDT Timothy Bai MD LAB BLOOD ORDERABLES Final Result Performing Organization Address City/[facility]/ZIP Co de Phone Number [facility] [address] [place] [address], [facility] [phone] * ANCA Vasculitis Profile(SENDOUT) (12/04/2024 8:15 AM EDT) Myeloperoxidase (MPO) Ab, IgG 0 0 - 19 AU/mL 12/07/2024 8:52 AM EDT [employer] Comment: INTERPRETIVE INFORMATION: Myeloperoxidase Abs, IgG 19 AU/mL or Less ......... Negative 20-25 AU/mL .............. Equivocal 26 AU/mL or Greater ...... Positive Approximately 90% of patients with a P-ANCA pattern by IFA have antibodies specific for MPO. Serine Proteinase 3 (PR3) Ab, IgG 0 0 - 19 AU/mL 12/07/2024 8:52 AM EDT [facility] Comment: INTERPRETIVE INFORMATION: Serine Proteinase 3, IgG 19 AU/mL or Less ........ Negative 20-25 AU/mL ............. Equivocal 26 AU/mL or Greater ..... Positive Approximately 85% of patients with a C-ANCA pattern by IFA have antibodies specific for PR3. ANCA IFA Titer <1:20 <1:20 12/07/2024 8:52 AM EDT [facility] ANCA IFA Pattern None Detected None Detected 12/07/2024 8:52 AM EDT [employer] Comment: INTERPRETIVE INFORMATION: ANCA IFA Pattern Neutrophil Cytoplasmic Antibodies (C-ANCA = granular cytoplasmic staining, P-ANCA = perinuclear staining) are found in the serum of over 90 percent of patients with certain necrotizing systemic vasculitides, and usually in less than 5 percent of patients with collagen vascular disease or arthritis. Performed By: [employer] [address] [place] [id number] Reproduction Specialist: Lalo Mortensen MD, PhD CLIA Number: [id number] Blood Venipuncture / Unknown 12/04/2024 8:15 AM EDT 12/04/2024 8:32 AM EDT Hema Cervantes MD LAB BLOOD ORDERABLES Final Re sult Performing Organization Address City/[facility]/ZIP Co de Phone Number [facility] [address] [phone] * JEANA Reflexive Profile(SENDOUT) (12/04/2024 8:15 AM EDT) Anti-Nuclear Ab (JEANA), IgG by SHARON None Detected None Detected 12/06/2024 3:51 PM EDT [employer] Comment: No Anti-Nuclear Antibodies (JEANA) detected by SHARON. The Extractable Nuclear Antigen Antibodies (YEAST FERMENTATION ATTENDANT, [place], SSA 52, SSA 60, Scleroderma, Lilia-1 and SSB) and Double Stranded DNA (dsDNA) Antibody, IgG will not be performed. If suspicion of connective tissue disease is strong, and JEANA is negative by SHARON, consider testing for JAENA by IFA ([id number]). INTERPRETIVE INFORMATION: Anti-Nuclear Antibodies (JEANA), IgG by SHARON Antinuclear Antibodies (JEANA), IgG by SHARON: JEANA specimens are screened using enzyme-linked immunosorbent assay (SHARON) methodology. All SHARON results reported as Detected are further tested by indirect fluorescent assay (IFA) using HEp-2 substrate with an IgG-specific conjugate. The JEANA SHARON screen is designed to detect antibodies against dsDNA, histones, SS-A (Ro), SS-B (La), [place], [place]anes/YEAST FERMENTATION ATTENDANT, Scl-70, Lilia-1, centromeric proteins, other antigens extracted from the HEp-2 cell nucleus. JEANA SHARON assays have been reported to have lower sensitivities than JEANA IFA for systemic autoimmune rheumatic diseases (SARD). Negative results do not necessarily rule out SARD. Performed By: [employer] [address] [place] [address] Reproduction Specialist: Lalo Mortensen MD, PhD CLIA Number: [id number] Blood Venipuncture / Unknown 12/04/2024 8:15 AM EDT 12/04/2024 8:32 AM EDT us Hema Cervantes MD LAB BLOOD ORDERABLES Final Re sult Performing Organization Address [facility] Co de Phone Number [employer] [address] [phone] * Phosphorus (12/04/2024 3:34 AM EDT) Phosphorus 4.2 2.5 - 4.5 mg/dL 12/04/2024 4:04 AM EDT [facility] Blood Venipuncture / Unknown 12/04/2024 3:34 AM EDT 12/04/2024 3:41 AM EDT us Kirsty Tuttle APRN LAB BLOOD ORDERABLES Final R esult Performing Organization Address City/[facility] Co de Phone Number [facility] [address] [place] [address], [facility] [phone] * Creatine Kinase (CK) (12/03/2024 7:39 AM EDT) Only the most recent of2 resultswithin the time period is included. Total CK 55 29 - 168 U/L 12/03/2024 6:19 PM EDT [facility] Blood Venipuncture / Unknown 12/03/2024 7:39 AM EDT 12/03/2024 5:52 PM EDT us Hema Cervantes MD LAB BLOOD ORDERABLES Final Re sult Performing Organization Address [facility] de Phone Number [facility] [address] [place] [address], [facility] [phone] * Transfuse RBC (12/02/2024 5:03 PM EDT) Only the most recent of2 resultswithin the time period is included. us Tmiothy Bai MD FS_MODEL_IP_BLOOD TRANSFUS ION ORDERABLES Final [...] Pancytopenia. ATTENDING RADIOLOGIST: Dr. Haseeb Gil. PHYSICIAN LAMP WIRER: Sandra Rasmey PA-C PROCEDURE: After informed consent was obtained [...] Pancytopenia. ATTENDING RADIOLOGIST: Dr. Haseeb Gil. PHYSICIAN LAMP WIRER: Sandra Ramsey PA-C PROCEDURE: After informed consent [...] by Sandra Ramsey PA-C. Rommel Batista MD [facility] ORDERABLES Final Result * [facility] BONE MARROW SMEAR, ASPIRATION, AND STAIN (12/02/2024 12:06 PM EDT) AP RESULT See Note: [facility] Comment: [facility] [address] [place] [address] or [phone] Joe Carlos M.D., Bunch Trimmer Mold PATIENT NAME LABORATORY NO. MARY OLIVA [id number] [facility] MAIN AGE SEX SSN CLIENT REF # [id number] F [id number] [address] [place] [address] REQUESTING Aleksandr ATTENDING Aleksandr. COPY TOROMMEL PICHARDO DATE COLLECTED DATE RECEIVED DATE REPORTED 12/02/2024 12/02/2024 12/06/2024 ADDENDUM PRESENT ADDENDUM: Cytogenetics shows a normal female karyotype, 46,XX[20]. The original diagnosis remains unchanged. Verified by Heydi Mak M.D., MPH on 12/13/2024 Professional interpretation rendered by Heydi Mak M.D., MPH at [employer], [employer], [address] [place] [address]. DIAGNOSIS: PERIPHERAL SMEAR , BONE MARROW ASPIRATION [...] CD38, CD45, CD56, CD57, CD117, CD123, HLA-DR, [place], and Lambda. These tests use analyte specific [...] rendered by Heydi Mak M.D., MPH at [employer], [employer], [address] [place] [address]. GROSS DESCRIPTION: A. Received 1 peripheral blood smear slide for review. B. Received 5 bone marrow aspirate smear slides for review. 4 additional bone marrow aspirate smear slides made at [facility]. C. Received in a purple top tube labeled LPIC first draw . A particle section is created using 1 mL of blood and filtered to recover multiple pieces of red soft tissue and coagulated blood measuring 0.7 x 0.4 x 0.2 cm in aggregate and is filtered and submitted entirely in 1 block. DIPIKA Tom Labeled LPIC . Consists of 1 piece of thomas cylindrical firm tissue measuring 2.0 cm in length and 0.2 cm in diameter and is submitted entirely in 1 block following decalcification. REVIEWED, DIAGNOSED AND ELECTRONICALLY SIGNED BY: Heydi Mak M.D., MPH CPT CODES: [id number], [id number], 04215, [id number], [id number], 95693, 35105, [id number] Bone Marrow BONE MARROW STRUCTURE / Unknown 12/02/2024 12:06 PM EDT us Rommel Batista MD PATHOLOGY/CYTOLOGY ORDERABLES Edited Result - Final Performing Organization Address [facility] Co de Phone Number [facility] [address] [place] [address] * Prepare RBC: 1 Units (12/02/2024 9:36 AM EDT) Only the most recent of2 resultswithin the time period is included. Issue Date/Time [id number] [facility] [place] Product Identification Red Blood Cells [facility] [place] Product Code [id number] [facility] [place] Status Information Transfused [facility]) Unit Number [id number] [facility] [place]) Blood Type 5100 [facility] [place] Cross Match Results Compatible [facility] [place] us Timothy Bai MD FS_MODEL_IP_BLOOD BANK PRO DUCT ORDERABLES Final Result [facility] [place] [address] [phone] * (ABNORMAL) Hemoglobin and hematocrit (12/02/2024 7:40 AM EDT) Hemoglobin 7.4(L) 11.2 - 15.7 GM/DL 12/02/2024 9:43 AM EDT [facility] Hematocrit 23.4(L) 34.1 - 44.9 % 12/02/2024 9:43 AM EDT [facility] Blood Venipuncture / Unknown 12/02/2024 7:40 AM EDT 12/02/2024 7:47 AM EDT us Timothy Bai MD LAB BLOOD ORDERABLES Final Result [facility] [address] [phone] * AN SINGLE LUMEN INTUBATION (12/01/2024 9:01 [...] ABO/Rh O Positive 12/01/2024 4:53 AM EDT [facility] [place] Antibody Screen Negative 12/01/2024 4:53 AM EDT [facility] BLOOD [facility] [place] HISTCHK HIST CHECK PERFORMED 12/01/2024 4:[address] [facility] [place] Blood Venipuncture / Unknown 12/01/2024 7:08 AM EDT 12/01/2024 7:15 AM EDT us Denilson Hodgson DO [facility] BLOOD BANK TEST ORDERABLES Final Result [facility] [place] [address] [place] [address], [facility] [phone] * ABO/RH Confirmation/Retype (12/01/2024 4:06 AM EDT) RETYPE O Positive 12/01/2024 5:[address] [facility] [place] Comment:[id number] Blood Venipuncture / Unknown 12/01/2024 4:06 AM EDT 12/01/2024 5:14 AM EDT Timothy Bai MD [facility] BLOOD BANK TEST ORDERA BLES Final Result Performing Organization Address City/[facility] Co de Phone Number [facility] [place] [address] [facility] [place] [address], [facility] [phone] * Ultrasound renal limited (11/30/2024 4:19 PM [...] - 25 % 025 8:49 PM EDT [facility] Lymphocytes Fluid 46 % 025 8:49 PM EDT [facility] Unidentified Mononuclear Cells BF 49 0 - 0 % 11/30/2024 8:49 PM EDT [facility] Peritoneal Fluid BODY FLUID / Unknown 11/30/2024 4:03 PM EDT 11/30/2024 4:33 PM EDT us Huey Hurtado MD BODY FLUIDS AND STOOLS ORDERABLE S Final Result [facility] [address] [phone] * [facility] Non-Cupola Tapper Helper Cytology (11/30/2024 4:03 PM EDT) AP RESULT See Note: [facility] Comment: [facility] [address] [place] [address] or [phone] Joe Carlos M.D., Bunch Trimmer Mold PATIENT NAME LABORATORY NO. MARY OLIVA. [id number] AGE SEX SSN CLIENT REF # [facility] 64 1960 F [id number] 1 [facility] REQUESTING Aleksandr ATTENDING Aleksandr. [place] [address] HUEY HURTADO DATE COLLECTED DATE RECEIVED DATE REPORTED 11/30/2024 12/01/2024 12/02/2024 DIAGNOSIS: PERITONEAL FLUID: Negative for malignant cells. MICROSCOPIC DESCRIPTION: Scattered mesothelial cells and chronic inflammatory cells are present. Professional interpretation rendered by John Sanchez M.D., F.C.A.P. at [facility], [address] [place] [address]. CLINICAL HISTORY: Melena Anasarca Acute renal failure SPECIMENS SUBMITTED: PERITONEAL FLUID GROSS SPECIMEN DESCRIPTION: 40 ccs of hazy, light yellow fluid, scant sediment, received in fixative ThinPrep slides prepared. Cell block has been examined. GROUP FITNESS ASSISTANT DEPARTMENT HEAD: SVITLANA HERNANDEZ (ASCP) REVIEWED, DIAGNOSED AND ELECTRONICALLY SIGNED BY: John Sanchez M.D., F.C.A.P. CPT CODES: [id number], [id number] Peritoneal Fluid BODY FLUID / Unknown 11/30/2024 4:03 PM EDT Huey Hurtado MD PATHOLOGY/CYTOLOGY ORDERABLES Fi nal Result [facility] [address] [place] [address] * AFB Culture And Stain (11/30/2024 4:03 PM EDT) Result No Acid Fast Bacilli isolated at 6 weeks 01/11/2025 5:00 PM EDT [facility] AFB Smear No acid fast bacilli seen 01/11/2025 5:00 PM EDT [facility] Peritoneal Fluid BODY FLUID / Unknown 11/30/2024 4:03 PM EDT 11/30/2024 4:34 PM EDT Narrative [facility] - 01/11/2025 5:00 PM EDT Specimen Description: peritoneal fluid us Huey Hurtado MD MICROBIOLOGY - GENERAL ORDERABLE S Final Result [facility] [address] [phone] * Body Fluid/CSF - Path Review () (11/30/2024 4:03 PM EDT) SENT TO PATHOLOGY FOR REVIEW Yes 12/03/2024 6:54 AM EDT [facility] Scan Result Mesothelial cells. MD German 12/02/2024 12/03/2024 6:54 AM EDT [facility] Peritoneal Fluid BODY FLUID / Unknown 11/30/2024 4:03 PM EDT 11/30/2024 4:33 PM EDT us Huey Hurtado MD BODY FLUIDS AND STOOLS ORDERABLE S Final Result [facility] [address] [phone] * Fungus Culture W/ROSA MARIA Or [employer] (11/30/2024 4:03 PM EDT) Result No fungus isolated at 6 weeks. 01/11/2025 5:00 PM EDT [facility] ROSA MARIA Prep No fungal elements seen 01/11/2025 5:00 PM EDT [facility] Peritoneal Fluid BODY FLUID / Unknown 11/30/2024 4:03 PM EDT 11/30/2024 4:34 PM EDT [facility] - 01/11/2025 5:00 PM EDT Specimen Description: peritoneal fluid us Huey Hurtado MD MICROBIOLOGY - GENERAL ORDERABLE S Final Result Performing Organization Address [facility]/ZIP Co de Phone Number [facility] [address] [phone] * Glucose, body fluid (11/30/2024 4:03 PM EDT) Glucose, Body Fluid 107 See Comment mg/dL 12/01/2024 7:10 AM EDT [facility] BODY FLUID TYPE Peritoneal 12/01/2024 7:10 AM EDT [facility] Body Fluid PERITONEAL FLUID / Unknown 11/30/2024 4:03 PM EDT 12/01/2024 6:52 AM EDT [facility] - 12/01/2024 7:10 AM EDT This test has been modified from the clinical liaison's instructions and its performance characteristics were determined [...] ORD ERABLES Final Result Performing Organization Address [facility] Co de Phone Number [facility] [address] [phone] * Anaerobic Culture (11/30/2024 4:03 PM EDT) Result No Anaerobic growth 12/05/2024 6:34 AM EDT [facility] Peritoneal Fluid BODY FLUID / Unknown 11/30/2024 4:03 PM EDT 11/30/2024 4:34 PM EDT [facility] - 12/05/2024 6:34 AM EDT Specimen Description: peritoneal fluid us Huey Hurtado MD MICROBIOLOGY - GENERAL ORDERABLE S Final Result [facility] [address] [phone] * Body Fluid Culture + Gram Stain (11/30/2024 4:03 PM EDT) Result No growth 12/03/2024 9:07 AM EDT [facility] Gram Stain Result No organisms seen 12/03/2024 9:07 AM EDT [facility] Gram Stain Result No cells seen 12/03/2024 9:07 AM EDT [facility] Peritoneal Fluid BODY FLUID / Unknown 11/30/2024 4:03 PM EDT 11/30/2024 4:34 PM EDT Narrative [facility] - 12/03/2024 9:07 AM EDT Specimen Description: peritoneal fluid Huey Hurtado MD MICROBIOLOGY - GENERAL ORDERABLE S Final Result [facility] [address] [phone] * (ABNORMAL) Body fluid cell count with differential (11/30/2024 4:03 PM EDT) Appearance Cloudy(A) Clear 11/30/2024 8:49 PM EDT [facility] Color Yellow 11/30/2024 8:49 PM EDT [facility] BODY FLUID TYPE Peritoneal 11/30/2024 8:49 PM EDT [facility] Auto WBC/Nucleated Cells BF 85 /uL 11/30/2024 8:49 PM EDT [facility] Comment: Please refer to specific WBC/Nucleated Cell Count Body Fluid reference ranges below: For Pleural: 0-1000 Peritoneal: 0-1000 Pericardial:0-1000 Synovial: 0-200 Auto RBC BF <3,000 /uL 11/30/2024 8:49 PM EDT [facility] Comment: Please refer to specific RBC Cell Count Body Fluid reference ranges below: Pleural: 0-10,000 Peritoneal: 0-10,000 Pericardial:0-10,000 Synovial:0-30 Peritoneal Fluid BODY FLUID / Unknown 11/30/2024 4:03 PM EDT 11/30/2024 4:33 PM EDT Narrative [facility] - 11/30/2024 8:49 PM EDT There is normally no readily obtainable pleural, peritoneal and pericardial fluid, hence normal elements for these potential fluids are not defined. us Huey Hurtado MD BODY FLUIDS AND STOOLS ORDERABLE S Final Result Performing Organization Address [facility] Co de Phone Number [facility] [address] [phone] * Protein, body fluid (11/30/2024 4:03 PM EDT) Protein, Fluid 1.9 See Comment g/dL 12/01/2024 7:10 AM EDT [facility] BODY FLUID TYPE Peritoneal 12/01/2024 7:10 AM EDT [facility] Body Fluid PERITONEAL FLUID / Unknown 11/30/2024 4:03 PM EDT 12/01/2024 6:52 AM EDT Narrative [facility] - 12/01/2024 7:10 AM EDT This test has been modified from the clinical liaison's instructions and its performance characteristics were determined [...] ORD ERABLES Final Result Performing Organization Address [facility] Co de Phone Number [facility] [address] [phone] * Lactate dehydrogenase (LDH), body fluid (11/30/2024 4:03 PM EDT) LDH, Fluid 71 See Comment U/L 11/30/2024 6:19 PM EDT [facility] BODY FLUID TYPE Peritoneal 11/30/2024 6:19 PM EDT [facility] Peritoneal Fluid BODY FLUID / Unknown 11/30/2024 4:03 PM EDT 11/30/2024 4:33 PM EDT Narrative [facility] - 11/30/2024 6:19 PM EDT This test has been modified from the clinical liaison's instructions and its performance characteristics were determined by the laboratory. The reference intervals and other method performance specifications are unavailable for this test. It is recommended to interpret body fluid concentrations in comparison with the corresponding serum or plasma concentrations and to integrate test results into the clinical context. Huey Hurtado MD BODY FLUIDS AND STOOLS ORDERABLE S Final Result [facility] [address] [phone] * (ABNORMAL) Urinalysis, Reflex Microscopic and Culture If Indicated (11/30/2024 11:35 AM EDT) Color, UA Light Yellow 11/30/2024 12:06 PM EDT [facility] Clarity, UA Turbid(A) Clear 11/30/2024 12:06 PM EDT [facility] Specific [place], UA 1.011 1.005 - 1.030 11/30/2024 12:06 PM EDT [facility] pH, UA 5.0(L) 6.0 - 8.0 11/30/2024 12:06 PM EDT [facility] Leukocytes, UA 500 Félix/uL(A) Negative 11/30/2024 12:06 PM EDT [facility] Nitrite, UA Negative Negative 11/30/2024 12:06 PM EDT [facility] Protein, UA Negative Negative 11/30/2024 12:06 PM EDT [facility] Glucose, UA Normal Normal 11/30/2024 12:06 PM EDT [facility] Ketones, UA Negative Negative 11/30/2024 12:06 PM EDT [facility] Bilirubin, UA Negative Negative 11/30/2024 12:06 PM EDT [facility] Blood, UA Negative Negative 11/30/2024 12:06 PM EDT [facility] Urobilinogen, UA Normal Normal 11/30/2024 12:06 PM EDT [facility] Specimen Source Urine, Clean Catch 11/30/2024 12:06 PM EDT [facility] Urine URINE SPECIMEN COLLECTION, CLEAN CATCH / Unknown 11/30/2024 11:35 AM EDT 11/30/2024 11:41 AM EDT us Destiney Llanes ARTIST MANAGER URINE ORDERABLES Final Resu lt Performing Organization Address City/[facility]/ZIP Co de Phone Number [facility] [address] [phone] * (ABNORMAL) Urinalysis Microscopic Only (11/30/2024 11:35 AM EDT) WBC, UA 21-50(A) None Seen /HPF 11/30/2024 12:06 PM EDT [facility] RBC, UA 0-2(A) None Seen /HPF 11/30/2024 12:06 PM EDT [facility] Bacteria, UA 1+(A) None Seen, Trace 11/30/2024 12:06 PM EDT [facility] Mucus 1+(A) None Seen 11/30/2024 12:06 PM EDT [facility] SQUAMOUS EPITHELIAL 3-5(A) None Seen /HPF 11/30/2024 12:06 PM EDT [facility] HYALINE CASTS 21-50(A) None Seen /LPF 11/30/2024 12:06 PM EDT [facility] Urine URINE SPECIMEN COLLECTION, CLEAN CATCH / Unknown 11/30/2024 11:35 AM EDT 11/30/2024 11:41 AM EDT us Destiney Llanes ARTIST MANAGER URINE ORDERABLES Final Resu lt [facility] [address] [phone] * Urea Nitrogen, random urine (11/30/2024 11:35 AM EDT) Urea Nitrogen, Ur 305 mg/dL 11/30/2024 12:36 PM EDT [facility] Comment:Reference Range not established Urine 11/30/2024 11:3 5 AM EDT 11/30/2024 12:15 PM EDT Hill Boo MD URINE ORDERABLES Final Result Performing Organization Address [facility] Co de Phone Number [facility] [address] [phone] * Protein / creatinine ratio, urine (11/30/2024 11:35 AM EDT) Creatinine, Ur 62.00 47.00 - 110.00 mg/dL 11/30/2024 12:36 PM EDT [facility] Protein Creatinine Ratio 0.19 <=0.20 11/30/2024 12:36 PM EDT [facility] Protein, Urine 12 1 - 14 mg/dL 11/30/2024 12:36 PM EDT [facility] Urine 11/30/2024 11:3 5 AM EDT 11/30/2024 12:15 PM EDT us Hill Boo MD URINE ORDERABLES Final Result Performing Organization Address [facility] Co sd Phone Number [facility] [address] [phone] * Sodium, random urine (11/30/2024 11:35 AM EDT) Sodium Urine 83 See Comment meq/L 11/30/2024 12:36 PM EDT [facility] Comment:Reference Range not established Urine 11/30/2024 11:3 5 AM EDT 11/30/2024 12:15 PM EDT Hill Boo MD URINE ORDERABLES Final Result Performing Organization Address [facility] Co sd Phone Number [facility] [address] [phone] * Urine Culture (11/30/2024 11:35 AM EDT) Result Recollect Specimen - 3 or more organisms suggests contamination 12/01/2024 6:49 AM EDT [facility] Urine URINE SPECIMEN COLLECTION, CLEAN CATCH / Unknown 11/30/2024 11:35 AM EDT 11/30/2024 11:41 AM EDT Destiney Llanes APRN MICROBIOLOGY - GENERAL ORDE YAKELIN Final Result [facility] [address] [place] [address], [facility] [phone] * (ABNORMAL) Monoclonal Protein Study, Expanded Panel(SENDOUT) [...] - 1.51 g/dL 12/03/2024 12:57 PM EDT [facility] Immunofixation MAEGAN Done 12/03/2024 12:57 PM EDT [facility] Immunoglobulin G 1484 768 - 1632 mg/dL 12/03/2024 12:57 PM EDT [facility] Immunoglobulin A 686(H) 68 - 408 mg/dL 12/03/2024 12:57 PM EDT [facility] Immunoglobulin M 126 35 - 263 mg/dL 12/03/2024 12:57 PM EDT [facility] Monoclonal Protein Not Applicable <=0.00 g/dL 12/03/2024 12:57 PM EDT [facility] [place] Qnt Free Light Chains 173.10(H) 3.30 - 19.40 mg/L 12/03/2024 12:57 PM EDT [facility] Comment: INTERPRETIVE INFORMATION: [place] Qnt Free Light Chains Undetected antigen excess is a rare event but cannot be excluded. Free light chain results should always be interpreted in conjunction with other clinical and laboratory findings. Lambda Qnt Free Light Chains 123.84(H) 5.71 - 26.30 mg/L 12/03/2024 12:57 PM EDT [facility] Comment: INTERPRETIVE INFORMATION: Lambda Qnt Free Light Chains Undetected antigen excess is a rare event but cannot be excluded. Free light chain results should always be interpreted in conjunction with other clinical and laboratory findings. [place]/Lambda Free Light Chain Ratio 1.40 0.26 - 1.65 12/03/2024 12:57 PM EDT [facility] SPEP/MAEGAN Interpretation See Note 12/03/2024 12:57 PM EDT [facility] Comment: [...] Serum See Note 12/03/2024 12:57 PM EDT [facility] [employer] Comment: Authorized individuals can access the [facility] Enhanced Report with an [employer] Connect account using the following link. Your local lab can assist you in obtaining the patient report if you don't have a Connect account. [email or web address] Performed By: [employer] [address] [place] [id number] Reproduction Specialist: Lalo Mortensen MD, PhD CLIA Number: [id number] Blood Venipuncture / Unknown 11/30/2024 11:01 AM EDT 11/30/2024 12:17 PM EDT Hill Boo MD LAB BLOOD ORDERABLES Final Resu lt Performing Organization Address City/[facility]/ZIP Co de Phone Number [facility] [address] [phone] * Alpha Fetoprotein Tumor Marker(SENDOUT) (11/30/2024 11:01 AM EDT) [facility] Alpha Fetoprotein Tumor Marker 2 0 - 9 ng/mL 12/01/2024 3:41 PM EDT [employer] Comment: INTERPRETIVE INFORMATION: Alpha Fetoprotein Tumor Marker The [employer] [place] Access DxI AFP method is used. Results [...] reference intervals for this test in the [employer] Laboratory Test Directory (Washio). Performed By: [employer] [address] [place] [address] Reproduction Specialist: Lalo Mortensen MD, PhD CLIA Number: [id number] Blood Venipuncture / Unknown 11/30/2024 11:01 AM EDT 11/30/2024 11:06 AM EDT Destiney Llanes APRN LAB BLOOD ORDERABLES Final Result Performing Organization Address [facility]/ZIP Co de Phone Number [facility] [address] [place] [address] * (ABNORMAL) Vitamin D, 25-Hydroxy (11/30/2024 8:20 AM EDT) [facility] Vitamin D 25-Hydroxy 22.0(L) 30 - 80 ng/mL 11/30/2024 9:48 AM EDT [facility] Blood Venipuncture / Unknown 11/30/2024 8:20 AM EDT 11/30/2024 9:08 AM EDT us Timothy Bai MD LAB BLOOD ORDERABLES Final Result Performing Organization Address [facility] de Phone Number [facility] [address] [phone] * Hemoglobin A1c (11/30/2024 8:20 AM EDT) Hemoglobin A1C 4.9 4.0 - 5.6 % 11/30/2024 9:17 AM EDT [facility] Comment: Hemoglobin A1C levels are related to mean glucose during the preceding 2-3 months. Less than 7% demonstrates glycemic control in diabetic patients. Hemoglobin AlC % Suggested Diagnosis > or = 6.5 Diabetic 5.7 - 6.4 Prediabetic <5.7 Non-diabetic eAVG Glucose 93.93 70 - 126 mg/dL 11/30/2024 9:17 AM EDT [facility] Blood Venipuncture / Unknown 11/30/2024 8:20 AM EDT 11/30/2024 9:07 AM EDT us Huey Hurtado MD LAB BLOOD ORDERABLES Final Resul t Performing Organization Address [facility] de Phone Number [facility] [address] [phone] * ECHO COMPLETE (DOPPLER / COLOR) WO CONTRAST (11/30/2024 7:50 AM EDT) Anatomical Region Laterality Modality Heart Vascular Ultraso und 11/30/2024 7:25 AM EDT Narrative 11/30/2024 10:46 AM EDT TRANSTHORACIC ECHOCARDIOGRAPHY REPORT Demographics Patient Name: RIN JONES : 1960 Age: 64 year(s) Corporate ID Number: [id number] Gender Female Software Project Engineer: Giovanna Rock Height: 67 inches [facility] Referring Physician: HUEY HURTADO Weight: 225 pounds Interpreting JESSICA RAYMOND MD BMI: 35.24 kg/m^2 Physician: Date of Service: 11/30/2024 Blood Pressure: 118/59 mmHg Room Number: 579 Type of Study: TTE procedure: ECHO COMPLETE (DOPPLER / COLOR) W OR WO CONTRAST. Patient Status: Routine IP Study Location: [facility] Quality: Adequate visualization History/Tech Notes: Indication: shortness [...] 1.35 m/s E/A ratio: 0.97 m/s Volume [id number] LV length: 8.51 cm ml Volume jgcbhetu86.96 ml LVOT diameter: 1.79 cm Normal sized [...] Valve TR velocity: 2.51 m/s TR gradient: 25.75700 mmHg Estimated RAP: 3 mmHg RVSP: 28.12 [...] noted in subcostal imaging. Procedure Note Jessica Rayomnd MD - 11/30/2024 TRANSTHORACIC ECHOCARDIOGRAPHY REPORT Demographics Patient Name: RIN JONES : 1960 Age: 64 year(s) Corporate ID Number: [id number] Gender Female Software Project Engineer: Giovanna Rock Height: 67 inches [facility] Referring Physician: HUEY HURTADO Weight: 225 pounds Interpreting JESSICA RAYMOND MD BMI: 35.24 kg/m^2 Physician: Date of Service: 11/30/2024 Blood Pressure: 118/59 mmHg Room Number: 579 Type of Study: TTE procedure: ECHO COMPLETE (DOPPLER / COLOR) W OR WO CONTRAST. Patient Status: [facility] History/Tech Notes: Indication: [...] .99 LV length: 8.51 cm ml Volume yhpvylko10.96 ml LVOT diameter: 1.79 cm Normal sized [...] Valve TR velocity: 2.51 m/s TR gradient: 25.68516 mmHg Estimated RAP: 3 mmHg RVSP: 28.12 [...] in 5 days 12/05/2024 5:01 AM EDT [facility] Blood ENTIRE RIGHT UPPER ARM / Unknown Venipuncture / Unknown 11/30/2024 3:42 AM EDT 11/30/2024 4:09 AM EDT us Huey Hurtado MD MICROBIOLOGY - GENERAL ORDERABLE S Final Result Performing Organization Address [facility] Co de Phone Number [facility] [address] [phone] * Lactic Acid with reflex (11/30/2024 3:40 AM EDT) Lactic Acid Level (mmol/L) 0.9 0.5 - 2.2 mmol/L 11/30/2024 5:37 AM EDT [facility] Blood Venipuncture / Unknown 11/30/2024 3:40 AM EDT 11/30/2024 4:10 AM EDT us Huey Hurtado MD LAB BLOOD ORDERABLES Final Resul t Performing Organization Address [facility] Co de Phone Number [facility] [address] [phone] * Procalcitonin (11/30/2024 3:40 AM EDT) Procalcitonin 0.26 See Comment ng/mL 11/30/2024 5:07 AM EDT [facility] Comment: Sepsis comment <0.5 [...] ORDERABLES Final Resul t Performing Organization Address [facility] de Phone Number [facility] [address] [phone] * (ABNORMAL) Iron and TIBC (11/30/2024 3:40 AM EDT) Iron 63 50 - 170 ug/dL 11/30/2024 6:13 PM EDT [facility] TIBC 183(L) 250 - 435 ug/dL 11/30/2024 6:13 PM EDT [facility] % Saturation 34 % 11/30/2024 6:13 PM EDT [facility] UIBC 120 11/30/2024 6:13 PM EDT [facility] Blood Venipuncture / Unknown 11/30/2024 3:40 AM EDT 11/30/2024 4:09 AM EDT Rommel Batista MD LAB BLOOD ORDERABLES Final Res ult Performing Organization Address [facility] Co de Phone Number [facility] [address] [phone] * aPTT (11/30/2024 3:40 AM EDT) aPTT 27.7 22.0 - 32.0 seconds 11/30/2024 4:32 AM EDT [facility] Blood Venipuncture / Unknown 11/30/2024 3:40 AM EDT 11/30/2024 4:10 AM EDT us Huey Hurtado MD LAB BLOOD ORDERABLES Final Resul t Performing Organization Address [facility] Co de Phone Number [facility] [address] [phone] * (ABNORMAL) Prothrombin time/INR (11/30/2024 3:40 AM EDT) Protime 12.9(H) 9.0 - 12.0 seconds 11/30/2024 4:32 AM EDT [facility] INR 1.17(H) 0.80 - 1.10 11/30/2024 4:32 AM EDT [facility] Comment: Recommended therapeutic ranges [...] ORDERABLES Final Resul t Performing Organization Address [facility] Co sd Phone Number [facility] [address] [phone] * (ABNORMAL) Uric acid (11/30/2024 3:40 AM EDT) Uric Acid 11.2(H) 2.5 - 6.2 mg/dL 11/30/2024 12:18 PM EDT [facility] Blood Venipuncture / Unknown 11/30/2024 3:40 AM EDT 11/30/2024 4:09 AM EDT us Hill Boo MD LAB BLOOD ORDERABLES Final Resu lt Performing Organization Address [facility] Co de Phone Number [facility] [address] [phone] * (ABNORMAL) Lactate dehydrogenase (LDH) (11/30/2024 3:40 AM EDT) LDH 261(H) 125 - 220 U/L 11/30/2024 12:18 PM EDT [facility] Blood Venipuncture / Unknown 11/30/2024 3:40 AM EDT 11/30/2024 4:09 AM EDT us Hill Boo MD LAB BLOOD ORDERABLES Final Resu lt [facility] [address] [phone] * Iron, serum (11/30/2024 3:40 AM EDT) Iron 64 50 - 170 ug/dL 11/30/2024 8:10 AM EDT [facility] Blood Venipuncture / Unknown 11/30/2024 3:40 AM EDT 11/30/2024 4:09 AM EDT us Timothy Bai MD LAB BLOOD ORDERABLES Final Result Performing Organization Address [facility]/ZIP Co de Phone Number [facility] [address] [phone] * Folate, Serum (11/30/2024 3:40 AM EDT) Folate 7.0 7.0 - 31.4 ng/mL 11/30/2024 6:08 PM EDT [facility] Blood Venipuncture / Unknown 11/30/2024 3:40 AM EDT 11/30/2024 4:09 AM EDT us Rommel Batista MD LAB BLOOD ORDERABLES Final Res ult Performing Organization Address City/[facility]/ZIP Co de Phone Number [facility] [address] [phone] * Vitamin B12 (11/30/2024 3:40 AM EDT) Vitamin B12 678 213 - 816 pg/mL 11/30/2024 8:10 AM EDT [facility] Blood Venipuncture / Unknown 11/30/2024 3:40 AM EDT 11/30/2024 4:09 AM EDT us Timothy Bai MD LAB BLOOD ORDERABLES Final Result [facility] [address] [place] [id number] [phone] * EKG-SCANNED (11/30/2024) Only the most recent of3 resultswithin the time period is included. Narrative 11/30/2024 Ordered by an unspecified provider. us Default Scanning Provider SCAN ORDERS Final Result from Last 3 Months Insurance [facility] Advance Directives For more information, please contact: [phone] * Full Code (Latest Code Status on File) Date Activated Date Inactivated Comments 11/30/2024 2:06 AM 12/14/2024 6:30 PM Care Teams [employer] Operator Relationship Specialty Start Date End Date Provider, Not In System [place] PCP - General 12/14/24
--- OUTSIDE RECORDS SUMMARY | 2025-01-19 10:50 | XMS_ITS | Data Portability ---
Author Organization Formerly [facility] Address [address] [place] [address] Assessment No assessment recorded. Plan of Treatment Reminders Order Date Submit Date Provider Last Modified By Organization Details Last Modified Time Details Appointments None recorded. Lab microalbumi n/creatinin e, mass ratio, urine 2023 024 [facility] (Lab), [address], [place], [address], 5 10:22:00 HbA1c (hemoglobin A1c), blood 2023 024 [facility] (Lab), [address], [place], [address], 5 10:21:59 CMP, serum or plasma 2023 024 [facility] (Lab), [address], [place], [address], 5 10:21:59 CBC w/ auto diff 2023 024 [facility] (Lab), [address], [place], [address], 5 10:21:59 lipid panel, serum 2023 024 [facility] (Lab), [address], [place], [address], 5 10:22:00 CBC w/ auto diff 2022 023 [facility] Nguyenjillian, [address], [address], [place], [address], 3 13:06:54 HbA1c (hemoglobin A1c), blood 2022 023 A[facility] Leroydanilo, [address], [address], [place], [address], 3 13:06:57 C-peptide, serum 2022 023 [facility] Leroydanilo, [address], [address], [place], [address], 3 13:06:56 CMP, serum or plasma 2022 023 [facility] Leroydanilo, [address], [address], [place], [address], 3 13:06:55 microalbumi n/creatinin e, mass ratio, urine 2022 023 [facility] Nguyenjillian, [address], [address], [place], [address], 3 13:06:56 CMP, serum or plasma 2022 023 A[facility] Leroydanilo, [address], [address], [place], [address], 3 11:08:27 lipid panel, serum 2022 023 [facility] Labdanilo, [address], [address], [place], [address], 3 11:08:28 HbA1c (hemoglobin A1c), blood 2022 023 A[facility] Leroydanilo, [address], [address], [place], [address], 3 11:08:29 CBC w/ auto diff 2022 023 A[facility] Leroydanilo, [address], [address], [place], [address], 3 11:08:27 HbA1c (hemoglobin A1c), blood 2021 022 [facility] Greg, [address], [address], [place], [address], 2 11:07:51 CMP, serum or plasma 2021 022 A[facility] Greg, [address], [address], [place], [address], 2 11:07:49 CBC w/ auto diff 2021 022 A[facility] Greg, [address], [address], [place], [address], 2 11:07:48 lipid panel, serum 2021 022 A[facility] Greg, [address], [address], [place], [address], 2 11:07:50 albumin/cre atinine, mass ratio, urine 2021 022 ABESAM Garza, [address], [address], [place], [address], 2 11:07:50 C-peptide, serum 2021 022 ABE Garza, [address], [address], [place], [address], 2 11:07:51 Referral None recorded. Procedures None recorded. Surgeries None recorded. Imaging None recorded. Medication Orders Mounjaro 2.5 mg/0.5 mL subcutaneou s pen injector 2023 024 [facility], [address] [address] [place], [id number], 4 16:05:05 Glucagon Emergency Kit 1 mg solution for injection 2022 023 [facility], [address] [place] [address] [place], [id number], 3 13:31:18 Fiasp U-100 Insulin 100 unit/mL subcutaneou s solution 2022 023 [facility], [facility] [address] [place], [id number], 3 13:35:16 [facility] 500 [facility], [address] [place], [place] [address], [id number], 3 11:31:54 Patient TargetsNo targets recorded. Patient Instructions Encounter Date Encounter Id Patient Instructions Last Modified By Organization Details Last Modified Time 04/22/2023 [id number] learning about healthy weight efryman Not available 04/22/2023 10:44:48 body mass index: care instructions efryfort howard Not available 04/22/2023 10:44:48 Reason for Referral None Reported. Results Created Date Observation Date Name Description Value Unit Range Abnormal Flag Note LastModifiedBy Organization Detail LastModifiedTime 05/29/20 22 05/29/2022 CBC WITH DIFFE RENTI AL/PL ATELE T WBC 3.3 x10e3 /uL 3.4-10 .8 below low normal Not Available [facility] ([facility]) [address] [facility], [place], [address], 05/29/2022 11:07:48 05/29/20 22 05/29/2022 CBC WITH DIFFE RENTI AL/PL ATELE T RBC 4.52 x10e6 /uL 3.77-5 .28 Not Available [facility] ([facility]) [address] [facility], [place], [address], 05/29/2022 11:07:48 05/29/20 22 05/29/2022 CBC WITH DIFFE RENTI AL/PL ATELE T hemoglobin 14.0 g/dL 11.1-1 5.9 Not Available [facility] ([facility]) [address] [facility], [place], [address], 05/29/2022 11:07:48 05/29/20 22 05/29/2022 CBC WITH DIFFE RENTI AL/PL ATELE T hematocrit 44.3 % 34.0-4 6.6 Not Available [facility] ([facility]) [address] [facility], [place], [address], 05/29/2022 11:07:48 05/29/20 22 05/29/2022 CBC WITH DIFFE RENTI AL/PL ATELE T MCV 98 fL 79-97 above high normal Not Available [facility] ([facility]) [address] [place], [address], 05/29/2022 11:07:48 05/29/20 22 05/29/2022 CBC WITH DIFFE RENTI AL/PL ATELE T MCH 31.0 pg 26.6-3 3.0 Not Available [facility] ([facility]) [address] [place], [address], 05/29/2022 11:07:48 05/29/20 22 05/29/2022 CBC WITH DIFFE RENTI AL/PL ATELE T MCHC 31.6 g/dL 31.5-3 5.7 Not Available [facility] ([facility]) [address] [place], [address], 05/29/2022 11:07:48 05/29/20 22 05/29/2022 CBC WITH DIFFE RENTI AL/PL ATELE T RDW 13.9 % 11.7-1 5.4 Not Available [facility] ([facility]) [address] [facility], [place], [address], 05/29/2022 11:07:48 05/29/20 22 05/29/2022 CBC WITH DIFFE RENTI AL/PL ATELE T platelets 88 x10e3 /uL 150-45 0 alert low Actua l plate let count may be somew hat highe r than repor sharla due to aggre gatio n of plate lets in this sampl e. Not Available [facility] ([facility]) [address] [facility], [place], [address], 05/29/2022 11:07:48 05/29/20 22 05/29/2022 CBC WITH DIFFE RENTI AL/PL ATELE T neutrophils 62 % not estab. Not Available [facility] ([facility]) [address] [facility], [place], [address], 05/29/2022 11:07:48 05/29/20 22 05/29/2022 CBC WITH DIFFE RENTI AL/PL ATELE T lymphs 28 % not estab. Not Available [facility] ([facility]) [address] [facility], [place], [address], 05/29/2022 11:07:48 05/29/20 22 05/29/2022 CBC WITH DIFFE RENTI AL/PL ATELE T monocytes 8 % not estab. Not Available [facility] ([facility]) [address] [facility], [place], [address], 05/29/2022 11:07:48 05/29/20 22 05/29/2022 CBC WITH DIFFE RENTI AL/PL ATELE T eos 2 % not estab. Not Available [facility] ([facility]) [address] [facility], [place], [address], 05/29/2022 11:07:48 05/29/20 22 05/29/2022 CBC WITH DIFFE RENTI AL/PL ATELE T basos 0 % not estab. Not Available [facility] ([facility]) [address] [facility], [place], [address], 05/29/2022 11:07:48 05/29/20 22 05/29/2022 CBC WITH DIFFE RENTI AL/PL ATELE T immature cells MEDICAL RECORD LIBRARIAN Not Available [facility] ([facility]) [address] [facility], [place], [address], 05/29/2022 11:07:48 05/29/20 22 05/29/2022 CBC WITH DIFFE RENTI AL/PL ATELE T neutrophils (absolute) 2.1 x10e3 /uL 1.4-7. 0 Not Available [facility] ([facility]) [address] [facility], [place], [address], 05/29/2022 11:07:48 05/29/20 22 05/29/2022 CBC WITH DIFFE RENTI AL/PL ATELE T lymphs (absolute) 0.9 x10e3 /uL 0.7-3. 1 Not Available [facility] ([facility]) [address] [place], [address], 05/29/2022 11:07:48 05/29/20 22 05/29/2022 CBC WITH DIFFE RENTI AL/PL ATELE T monocytes(ab solute) 0.3 x10e3 /uL 0.1-0. 9 Not Available [facility] ([facility]) [address] [place], [address], 05/29/2022 11:07:48 05/29/20 22 05/29/2022 CBC WITH DIFFE RENTI AL/PL ATELE T eos (absolute) 0.1 x10e3 /uL 0.0-0. 4 Not Available [facility] ([facility]) [address] [place], [address], 05/29/2022 11:07:48 05/29/20 22 05/29/2022 CBC WITH DIFFE RENTI AL/PL ATELE T baso (absolute) 0.0 x10e3 /uL 0.0-0. 2 Not Available [facility] ([facility]) [address] [facility], [place], [address], 05/29/2022 11:07:48 05/29/20 22 05/29/2022 CBC WITH DIFFE RENTI AL/PL ATELE T immature granulocytes 0 % not estab. Not Available [facility] ([facility]) [address] [facility], [place], [address], 05/29/2022 11:07:48 05/29/20 22 05/29/2022 CBC WITH DIFFE RENTI AL/PL ATELE T immature grans (abs) 0.0 x10e3 /uL 0.0-0. 1 Not Available [facility] ([facility]) [address] [facility], [place], [address], 05/29/2022 11:07:48 05/29/20 22 05/29/2022 CBC WITH DIFFE RENTI AL/PL ATELE T NRBC MEDICAL RECORD LIBRARIAN Not Available [facility] ([facility]) [address] [facility], [place], [address], 05/29/2022 11:07:48 05/29/20 22 05/29/2022 CBC WITH DIFFE RENTI AL/PL ATELE T hematology comments: Note: Verif ied by micro scopi c exami natsimeon n. Not Available [facility] ([facility]) [address] [facility], [place], [address], 05/29/2022 11:07:48 05/29/20 22 05/29/2022 COMP. METAB OLIC PANEL (14) glucose 111 mg/dL 70-99 above high normal Not Available [facility] ([facility]) [address] [facility], [place], [address], 05/29/2022 11:07:49 05/29/20 22 05/29/2022 COMP. METAB OLIC PANEL (14) BUN 13 mg/dL 8-27 Not Available [facility] ([facility]) [address] [facility] [place], [address], 05/29/2022 11:07:49 05/29/20 22 05/29/2022 COMP. METAB OLIC PANEL (14) creatinine 0.93 mg/dL 0.57-1 .00 Not Available [facility] ([facility]) [address] [facility] [place], [address], 05/29/2022 11:07:49 05/29/20 22 05/29/2022 COMP. METAB OLIC PANEL (14) eGFR 70 mL/mi n/1.7 3 >59 Not Available [facility] ([facility]) [address] [facility] [place], [address], 05/29/2022 11:07:49 05/29/20 22 05/29/2022 COMP. METAB OLIC PANEL (14) BUN/creatini ne ratio 14 12-28 Not Available [facility] ([facility]) [address] [facility] [place], [address], 05/29/2022 11:07:49 05/29/20 22 05/29/2022 COMP. METAB OLIC PANEL (14) sodium 145 mmol/ L 134-14 4 above high normal Not Available [facility] ([facility]) [address] [facility] [place], [address], 05/29/2022 11:07:49 05/29/20 22 05/29/2022 COMP. METAB OLIC PANEL (14) potassium 4.5 mmol/ L 3.5-5. 2 Not Available [facility] ([facility]) [address] [facility] [place], [address], 05/29/2022 11:07:49 05/29/20 22 05/29/2022 COMP. METAB OLIC PANEL (14) chloride 106 mmol/ L 96-106 Not Available [facility] ([facility]) [address] [facility] [place], [address], 05/29/2022 11:07:49 05/29/20 22 05/29/2022 COMP. METAB OLIC PANEL (14) carbon dioxide, total 28 mmol/ L 20-29 Not Available [facility] ([facility]) [address] [facility], [place], [address], 05/29/2022 11:07:49 05/29/20 22 05/29/2022 COMP. METAB OLIC PANEL (14) calcium 9.4 mg/dL 8.7-10 .3 Not Available [facility] ([facility]) [address] [place], [address], 05/29/2022 11:07:49 05/29/20 22 05/29/2022 COMP. METAB OLIC PANEL (14) protein, total 7.2 g/dL 6.0-8. 5 Not Available [facility] ([facility]) [address] [facility] [place], [address], 05/29/2022 11:07:49 05/29/20 22 05/29/2022 COMP. METAB OLIC PANEL (14) albumin 3.9 g/dL 3.8-4. 9 Not Available [facility] ([facility]) [address] [facility], [place], [address], 05/29/2022 11:07:49 05/29/20 22 05/29/2022 COMP. METAB OLIC PANEL (14) globulin, total 3.3 g/dL 1.5-4. 5 Not Available [facility] ([facility]) [address] [facility] [place], [address], 05/29/2022 11:07:49 05/29/20 22 05/29/2022 COMP. METAB OLIC PANEL (14) A/G ratio 1.2 1.2-2. 2 Not Available [facility] ([facility]) [address] [facility] [place], [address], 05/29/2022 11:07:49 05/29/20 22 05/29/2022 COMP. METAB OLIC PANEL (14) bilirubin, total 0.6 mg/dL 0.0-1. 2 Not Available [facility] ([facility]) [address] [place], [address], 05/29/2022 11:07:49 05/29/20 22 05/29/2022 COMP. METAB OLIC PANEL (14) alkaline phosphatase 164 IU/L 44-121 above high normal Not Available [facility] ([facility]) [address] [place], [address], 05/29/2022 11:07:49 05/29/20 22 05/29/2022 COMP. METAB OLIC PANEL (14) AST (SGOT) 50 IU/L 0-40 above high normal Not Available [facility] ([facility]) [address] [place], [address], 05/29/2022 11:07:49 05/29/20 22 05/29/2022 COMP. METAB OLIC PANEL (14) ALT (SGPT) 41 IU/L 0-32 above high normal Not Available [facility] ([facility]) [address] [place], [address], 05/29/2022 11:07:49 05/29/20 22 05/29/2022 LIPID PANEL cholesterol, total 170 mg/dL 100-19 9 Not Available [facility] ([facility]) [address] [place], [address], 05/29/2022 11:07:50 05/29/20 22 05/29/2022 LIPID PANEL triglyceride s 88 mg/dL 0-149 Not Available [facility] ([facility]) [address] [place], [address], 05/29/2022 11:07:50 05/29/20 22 05/29/2022 LIPID PANEL HDL cholesterol 53 mg/dL >39 Not Available [facility] ([facility]) [address] [facility], [place], [address], 05/29/2022 11:07:50 05/29/20 22 05/29/2022 LIPID PANEL VLDL cholesterol jenniffer 16 mg/dL 5-40 Not Available [facility] ([facility]) [address] [place], [address], 05/29/2022 11:07:50 05/29/20 22 05/29/2022 LIPID PANEL LDL chol calc ([facility]) 101 mg/dL 0-99 above high normal Not Available [facility] ([facility]) [address] [place], [address], 05/29/2022 11:07:50 05/29/20 22 05/29/2022 LIPID PANEL comment: MEDICAL RECORD LIBRARIAN Not Available [facility] ([facility]) [address] [place], [address], 05/29/2022 11:07:50 05/29/20 22 05/29/2022 ALBUM IN/CR EATIN INE RATIO ,URIN E creatinine, urine 147.7 mg/dL not estab. Not Available [facility] ([facility]) [address] [place], [address], 05/29/2022 11:07:50 05/29/20 22 05/29/2022 ALBUM IN/CR EATIN INE RATIO ,URIN E albumin, urine 80.0 ug/mL not estab. Not Available [facility] ([facility]) [address] [place], [address], 05/29/2022 11:07:50 05/29/20 22 05/29/2022 ALBUM IN/CR EATIN INE RATIO ,URIN E alb/creat ratio 54 mg/g_ creat 0-29 above high normal Blanka l: 0 - 29 Moder ately incre ased: 30 - 300 Sever lemuel incre ased: >300 Not Available [facility] ([facility]) [address] [place], [address], 05/29/2022 11:07:50 05/29/20 22 05/29/2022 HEMOG LOBIN A1C hemoglobin A1C 10.7 % 4.8-5. 6 above high normal Predi abete s: 5.7 - 6.4 Diabe reynold: >6.4 Glyce eve contr ol for adult s with diabe reynold: <7.0 Not Available [facility] ([facility]) [address] [facility], [place], [address], 05/29/2022 11:07:51 05/29/20 22 05/29/2022 C-PEP TIDE, SERUM C-peptide, serum 3.2 NG/mL 1.1-4. 4 C-Pep tide refer ence inter rimma is for fasti ng patie nts. Not Available [facility] ([facility]) [address] [facility], [place], [address], 05/29/2022 11:07:51 05/29/20 22 05/29/2022 PLESRUTHI E NOTE please note Commen t The date and/o r time of colle ction was not indic ated on the requi sitio n as requi red by state and [place] law. The date of recei pt of the speci men was used as the colle ction date if not suppl ied. Not Available [facility] ([facility]) [address] [facility], [place], [address], 05/29/2022 11:07:52 09/03/19 23 09/04/2022 CBC WITH DIFFE RENTI AL/PL ATELE T WBC 3.4 x10e3 /uL 3.4-10 .8 Not Available [facility] ([facility]) [address] [facility], [place], [address], 09/04/2022 11:08:26 09/03/19 23 09/04/2022 CBC WITH DIFFE RENTI AL/PL ATELE T RBC 4.18 x10e6 /uL 3.77-5 .28 Not Available [facility] ([facility]) [address] [facility], [place], [address], 09/04/2022 11:08:26 09/03/19 23 09/04/2022 CBC WITH DIFFE RENTI AL/PL ATELE T hemoglobin 13.2 g/dL 11.1-1 5.9 Not Available [facility] ([facility]) [address] [facility], [place], [address], 09/04/2022 11:08:26 09/03/19 23 09/04/2022 CBC WITH DIFFE RENTI AL/PL ATELE T hematocrit 39.4 % 34.0-4 6.6 Not Available [facility] ([facility]) [address] [facility], [place], [address], 09/04/2022 11:08:26 09/03/19 23 09/04/2022 CBC WITH DIFFE RENTI AL/PL ATELE T MCV 94 fL 79-97 Not Available [facility] ([facility]) [address] [place], [address], 09/04/2022 11:08:26 09/03/19 23 09/04/2022 CBC WITH DIFFE RENTI AL/PL ATELE T MCH 31.6 pg 26.6-3 3.0 Not Available [facility] ([facility]) [address] [place], [address], 09/04/2022 11:08:26 09/03/19 23 09/04/2022 CBC WITH DIFFE RENTI AL/PL ATELE T MCHC 33.5 g/dL 31.5-3 5.7 Not Available [facility] ([facility]) [address] [place], [address], 09/04/2022 11:08:26 09/03/19 23 09/04/2022 CBC WITH DIFFE RENTI AL/PL ATELE T RDW 13.9 % 11.7-1 5.4 Not Available [facility] ([facility]) [address] [facility], [place], [address], 09/04/2022 11:08:26 09/03/19 23 09/04/2022 CBC WITH DIFFE RENTI AL/PL ATELE T platelets 89 x10e3 /uL 150-45 0 alert low Plate let count verif ied by exami natsimeon n of perip heral blood smear . Not Available [facility] ([facility]) [address] [facility], [place], [address], 09/04/2022 11:08:26 09/03/19 23 09/04/2022 CBC WITH DIFFE RENTI AL/PL ATELE T neutrophils 58 % not estab. Not Available [facility] ([facility]) [address] [facility], [place], [address], 09/04/2022 11:08:26 09/03/19 23 09/04/2022 CBC WITH DIFFE RENTI AL/PL ATELE T lymphs 32 % not estab. Not Available [facility] ([facility]) [address] [facility], [place], [address], 09/04/2022 11:08:26 09/03/19 23 09/04/2022 CBC WITH DIFFE RENTI AL/PL ATELE T monocytes 9 % not estab. Not Available [facility] ([facility]) [address] [facility], [place], [address], 09/04/2022 11:08:26 09/03/19 23 09/04/2022 CBC WITH DIFFE RENTI AL/PL ATELE T eos 1 % not estab. Not Available [facility] ([facility]) [address] [facility], [place], [address], 09/04/2022 11:08:26 09/03/19 23 09/04/2022 CBC WITH DIFFE RENTI AL/PL ATELE T basos 0 % not estab. Not Available [facility] ([facility]) [address] [facility], [place], [address], 09/04/2022 11:08:26 09/03/19 23 09/04/2022 CBC WITH DIFFE RENTI AL/PL ATELE T immature cells MEDICAL RECORD LIBRARIAN Not Available [facility] ([facility]) [address] [facility], [place], [address], 09/04/2022 11:08:26 09/03/19 23 09/04/2022 CBC WITH DIFFE RENTI AL/PL ATELE T neutrophils (absolute) 1.9 x10e3 /uL 1.4-7. 0 Not Available [facility] ([facility]) [address] [facility], [place], [address], 09/04/2022 11:08:26 09/03/19 23 09/04/2022 CBC WITH DIFFE RENTI AL/PL ATELE T lymphs (absolute) 1.1 x10e3 /uL 0.7-3. 1 Not Available [facility] ([facility]) [address] [place], [address], 09/04/2022 11:08:26 09/03/19 23 09/04/2022 CBC WITH DIFFE RENTI AL/PL ATELE T monocytes(ab solute) 0.3 x10e3 /uL 0.1-0. 9 Not Available [facility] ([facility]) [address] [place], [address], 09/04/2022 11:08:26 09/03/19 23 09/04/2022 CBC WITH DIFFE RENTI AL/PL ATELE T eos (absolute) 0.0 x10e3 /uL 0.0-0. 4 Not Available [facility] ([facility]) [address] [place], [address], 09/04/2022 11:08:26 09/03/19 23 09/04/2022 CBC WITH DIFFE RENTI AL/PL ATELE T baso (absolute) 0.0 x10e3 /uL 0.0-0. 2 Not Available [facility] ([facility]) [address] [facility], [place], [address], 09/04/2022 11:08:26 09/03/19 23 09/04/2022 CBC WITH DIFFE RENTI AL/PL ATELE T immature granulocytes 0 % not estab. Not Available [facility] ([facility]) [address] [facility], [place], [address], 09/04/2022 11:08:26 09/03/19 23 09/04/2022 CBC WITH DIFFE RENTI AL/PL ATELE T immature grans (abs) 0.0 x10e3 /uL 0.0-0. 1 Not Available [facility] ([facility]) [address] [facility], [place], [address], 09/04/2022 11:08:26 09/03/19 23 09/04/2022 CBC WITH DIFFE RENTI AL/PL ATELE T NRBC MEDICAL RECORD LIBRARIAN Not Available [facility] ([facility]) [address] [facility], [place], [address], 09/04/2022 11:08:26 09/03/19 23 09/04/2022 CBC WITH DIFFE RENTI AL/PL ATELE T hematology comments: Note: Verif ied by micro bossman laceyi natsimeon n. Not Available [facility] ([facility]) [address] [facility], [place], [address], 09/04/2022 11:08:26 09/03/19 23 09/04/2022 COMP. METAB OLIC PANEL (14) glucose 87 mg/dL 70-99 Not Available [facility] ([facility]) [address] [facility], [place], [address], 09/04/2022 11:08:27 09/03/19 23 09/04/2022 COMP. METAB OLIC PANEL (14) BUN 16 mg/dL 8-27 Not Available [facility] ([facility]) [address] [facility] [place], [address], 09/04/2022 11:08:27 09/03/19 23 09/04/2022 COMP. METAB OLIC PANEL (14) creatinine 1.02 mg/dL 0.57-1 .00 above high normal Not Available [facility] ([facility]) [address] [facility] [place], [address], 09/04/2022 11:08:27 09/03/19 23 09/04/2022 COMP. METAB OLIC PANEL (14) eGFR 63 mL/mi n/1.7 3 >59 Not Available [facility] ([facility]) [address] [facility] [place], [address], 09/04/2022 11:08:27 09/03/19 23 09/04/2022 COMP. METAB OLIC PANEL (14) BUN/creatini ne ratio 16 12-28 Not Available [facility] ([facility]) [address] [facility] [place], [address], 09/04/2022 11:08:27 09/03/19 23 09/04/2022 COMP. METAB OLIC PANEL (14) sodium 145 mmol/ L 134-14 4 above high normal Not Available [facility] ([facility]) [address] [facility] [place], [address], 09/04/2022 11:08:27 09/03/19 23 09/04/2022 COMP. METAB OLIC PANEL (14) potassium 4.3 mmol/ L 3.5-5. 2 Not Available [facility] ([facility]) [address] [facility] [place], [address], 09/04/2022 11:08:27 09/03/19 23 09/04/2022 COMP. METAB OLIC PANEL (14) chloride 108 mmol/ L 96-106 above high normal Not Available [facility] ([facility]) [address] [facility] [place], [address], 09/04/2022 11:08:27 09/03/19 23 09/04/2022 COMP. METAB OLIC PANEL (14) carbon dioxide, total 26 mmol/ L 20-29 Not Available [facility] ([facility]) [address], [place], [address], 09/04/2022 11:08:27 09/03/19 23 09/04/2022 COMP. METAB OLIC PANEL (14) calcium 9.2 mg/dL 8.7-10 .3 Not Available [facility] ([facility]) [address], [place], [address], 09/04/2022 11:08:27 09/03/19 23 09/04/2022 COMP. METAB OLIC PANEL (14) protein, total 7.0 g/dL 6.0-8. 5 Not Available [facility] ([facility]) [address] [facility], [place], [address], 09/04/2022 11:08:27 09/03/19 23 09/04/2022 COMP. METAB OLIC PANEL (14) albumin 3.8 g/dL 3.8-4. 9 Not Available [facility] ([facility]) [address] [facility], [place], [address], 09/04/2022 11:08:27 09/03/19 23 09/04/2022 COMP. METAB OLIC PANEL (14) globulin, total 3.2 g/dL 1.5-4. 5 Not Available [facility] ([facility]) [address] [place], [address], 09/04/2022 11:08:27 09/03/19 23 09/04/2022 COMP. METAB OLIC PANEL (14) A/G ratio 1.2 1.2-2. 2 Not Available [facility] ([facility]) [address] [facility], [place], [address], 09/04/2022 11:08:27 09/03/19 23 09/04/2022 COMP. METAB OLIC PANEL (14) bilirubin, total 0.6 mg/dL 0.0-1. 2 Not Available [facility] ([facility]) [address] [place], [address], 09/04/2022 11:08:27 09/03/19 23 09/04/2022 COMP. METAB OLIC PANEL (14) alkaline phosphatase 153 IU/L 44-121 above high normal Not Available [facility] ([facility]) [address] [place], [address], 09/04/2022 11:08:27 09/03/19 23 09/04/2022 COMP. METAB OLIC PANEL (14) AST (SGOT) 55 IU/L 0-40 above high normal Not Available [facility] ([facility]) [address] [place], [address], 09/04/2022 11:08:27 09/03/19 23 09/04/2022 COMP. METAB OLIC PANEL (14) ALT (SGPT) 41 IU/L 0-32 above high normal Not Available [facility] ([facility]) [address] [place], [address], 09/04/2022 11:08:27 09/03/19 23 09/04/2022 LIPID PANEL cholesterol, total 150 mg/dL 100-19 9 Not Available [facility] ([facility]) [address] [place], [address], 09/04/2022 11:08:28 09/03/19 23 09/04/2022 LIPID PANEL triglyceride s 125 mg/dL 0-149 Not Available [facility] ([facility]) [address] [place], [address], 09/04/2022 11:08:28 09/03/19 23 09/04/2022 LIPID PANEL HDL cholesterol 37 mg/dL >39 below low normal Not Available [facility] ([facility]) [address] [facility], [place], [address], 09/04/2022 11:08:28 09/03/19 23 09/04/2022 LIPID PANEL VLDL cholesterol jenniffer 23 mg/dL 5-40 Not Available [facility] ([facility]) [address] [facility] [place], [address], 09/04/2022 11:08:28 09/03/19 23 09/04/2022 LIPID PANEL LDL chol calc ([facility]) 90 mg/dL 0-99 Not Available [facility] ([facility]) [address] [facility] [place], [address], 09/04/2022 11:08:28 09/03/19 23 09/04/2022 LIPID PANEL comment: MEDICAL RECORD LIBRARIAN Not Available [facility] ([facility]) [address] [facility], [place], [address], 09/04/2022 11:08:28 09/03/19 23 09/04/2022 HEMOG LOBIN A1C hemoglobin A1C 7.5 % 4.8-5. 6 above high normal Predi abete s: 5.7 - 6.4 Diabe reynold: >6.4 Glyce eve contr ol for adult s with diabe reynold: <7.0 Not Available [facility] ([facility]) [address] [facility], [place], [address], 09/04/2022 11:08:29 04/22/20 23 04/23/2023 CBC WITH DIFFE RENTI AL/PL ATELE T WBC 2.4 x10e3 /uL 3.4-10 .8 alert low Not Available [facility] ([facility]) [address] [place], [address], 04/23/2023 13:06:54 04/22/20 23 04/23/2023 CBC WITH DIFFE RENTI AL/PL ATELE T RBC 4.19 x10e6 /uL 3.77-5 .28 Not Available [facility] ([facility]) [address] [facility], [place], [address], 04/23/2023 13:06:54 04/22/20 23 04/23/2023 CBC WITH DIFFE RENTI AL/PL ATELE T hemoglobin 13.7 g/dL 11.1-1 5.9 Not Available [facility] ([facility]) [address] [facility], [place], [address], 04/23/2023 13:06:54 04/22/20 23 04/23/2023 CBC WITH DIFFE RENTI AL/PL ATELE T hematocrit 41.2 % 34.0-4 6.6 Not Available [facility] ([facility]) [address] [facility], [place], [address], 04/23/2023 13:06:54 04/22/20 23 04/23/2023 CBC WITH DIFFE RENTI AL/PL ATELE T MCV 98 fL 79-97 above high normal Not Available [facility] ([facility]) [address] [facility], [place], [address], 04/23/2023 13:06:54 04/22/20 23 04/23/2023 CBC WITH DIFFE RENTI AL/PL ATELE T MCH 32.7 pg 26.6-3 3.0 Not Available [facility] ([facility]) [address] [place], [address], 04/23/2023 13:06:54 04/22/20 23 04/23/2023 CBC WITH DIFFE RENTI AL/PL ATELE T MCHC 33.3 g/dL 31.5-3 5.7 Not Available [facility] ([facility]) [address] [place], [address], 04/23/2023 13:06:54 04/22/20 23 04/23/2023 CBC WITH DIFFE RENTI AL/PL ATELE T RDW 13.9 % 11.7-1 5.4 Not Available [facility] ([facility]) [address] [facility], [place], [address], 04/23/2023 13:06:54 04/22/20 23 04/23/2023 CBC WITH DIFFE RENTI AL/PL ATELE T platelets 71 x10e3 /uL 150-45 0 alert low Plate let count verif ied by exami christiano n of perip heral blood smear . Not Available [facility] ([facility]) [address] [facility], [place], [address], 04/23/2023 13:06:54 04/22/20 23 04/23/2023 CBC WITH DIFFE RENTI AL/PL ATELE T neutrophils 62 % not estab. Not Available [facility] ([facility]) [address] [facility], [place], [address], 04/23/2023 13:06:54 04/22/20 23 04/23/2023 CBC WITH DIFFE RENTI AL/PL ATELE T lymphs 29 % not estab. Not Available [facility] ([facility]) [address] [facility], [place], [address], 04/23/2023 13:06:54 04/22/20 23 04/23/2023 CBC WITH DIFFE RENTI AL/PL ATELE T monocytes 9 % not estab. Not Available [facility] ([facility]) [address] [facility], [place], [address], 04/23/2023 13:06:54 04/22/20 23 04/23/2023 CBC WITH DIFFE RENTI AL/PL ATELE T eos 0 % not estab. Not Available [facility] ([facility]) [address] [place], [address], 04/23/2023 13:06:54 04/22/20 23 04/23/2023 CBC WITH DIFFE RENTI AL/PL ATELE T basos 0 % not estab. Not Available [facility] ([facility]) [address] [facility], [place], [address], 04/23/2023 13:06:54 04/22/20 23 04/23/2023 CBC WITH DIFFE RENTI AL/PL ATELE T immature cells MEDICAL RECORD LIBRARIAN Not Available [facility] ([facility]) [address] [facility], [place], [address], 04/23/2023 13:06:54 04/22/20 23 04/23/2023 CBC WITH DIFFE RENTI AL/PL ATELE T neutrophils (absolute) 1.5 x10e3 /uL 1.4-7. 0 Not Available [facility] ([facility]) [address] [facility], [place], [address], 04/23/2023 13:06:54 04/22/20 23 04/23/2023 CBC WITH DIFFE RENTI AL/PL ATELE T lymphs (absolute) 0.7 x10e3 /uL 0.7-3. 1 Not Available [facility] ([facility]) [address] [facility], [place], [address], 04/23/2023 13:06:54 04/22/20 23 04/23/2023 CBC WITH DIFFE RENTI AL/PL ATELE T monocytes(ab solute) 0.2 x10e3 /uL 0.1-0. 9 Not Available [facility] ([facility]) [address] [facility], [place], [address], 04/23/2023 13:06:54 04/22/20 23 04/23/2023 CBC WITH DIFFE RENTI AL/PL ATELE T eos (absolute) 0.0 x10e3 /uL 0.0-0. 4 Not Available [facility] ([facility]) [address] [place], [address], 04/23/2023 13:06:54 04/22/20 23 04/23/2023 CBC WITH DIFFE RENTI AL/PL ATELE T baso (absolute) 0.0 x10e3 /uL 0.0-0. 2 Not Available [facility] ([facility]) [address] [facility], [place], [address], 04/23/2023 13:06:54 04/22/20 23 04/23/2023 CBC WITH DIFFE RENTI AL/PL ATELE T immature granulocytes 0 % not estab. Not Available [facility] ([facility]) [address] [facility], [place], [address], 04/23/2023 13:06:54 04/22/20 23 04/23/2023 CBC WITH DIFFE RENTI AL/PL ATELE T immature grans (abs) 0.0 x10e3 /uL 0.0-0. 1 Not Available [facility] ([facility]) [address] [facility], [place], [address], 04/23/2023 13:06:54 04/22/20 23 04/23/2023 CBC WITH DIFFE RENTI AL/PL ATELE T NRBC MEDICAL RECORD LIBRARIAN Not Available [facility] ([facility]) [address] [facility], [place], [address], 04/23/2023 13:06:54 04/22/20 23 04/23/2023 CBC WITH DIFFE RENTI AL/PL ATELE T hematology comments: Note: Verif ied by tristen alvarado nAkhil Not Available [facility] ([facility]) [address] [place], [address], 04/23/2023 13:06:54 04/22/20 23 04/23/2023 COMP. METAB OLIC PANEL (14) glucose 322 mg/dL 70-99 above high normal Not Available [facility] ([facility]) [address] [place], [address], 04/23/2023 13:06:55 04/22/20 23 04/23/2023 COMP. METAB OLIC PANEL (14) BUN 26 mg/dL 8-27 Not Available [facility] ([facility]) [address] [facility] [place], [address], 04/23/2023 13:06:55 04/22/20 23 04/23/2023 COMP. METAB OLIC PANEL (14) creatinine 1.39 mg/dL 0.57-1 .00 above high normal Not Available [facility] ([facility]) [address] [place], [address], 04/23/2023 13:06:55 04/22/20 23 04/23/2023 COMP. METAB OLIC PANEL (14) eGFR 43 mL/mi n/1.7 3 >59 below low normal Not Available [facility] ([facility]) [address] [facility] [place], [address], 04/23/2023 13:06:55 04/22/20 23 04/23/2023 COMP. METAB OLIC PANEL (14) BUN/creatini ne ratio 19 12-28 Not Available [facility] ([facility]) [address] [facility], [place], [address], 04/23/2023 13:06:55 04/22/20 23 04/23/2023 COMP. METAB OLIC PANEL (14) sodium 143 mmol/ L 134-14 4 Not Available [facility] ([facility]) [address] [facility] [place], [address], 04/23/2023 13:06:55 04/22/20 23 04/23/2023 COMP. METAB OLIC PANEL (14) potassium 5.1 mmol/ L 3.5-5. 2 Not Available [facility] ([facility]) [address] [facility] [place], [address], 04/23/2023 13:06:55 04/22/20 23 04/23/2023 COMP. METAB OLIC PANEL (14) chloride 103 mmol/ L 96-106 Not Available [facility] ([facility]) [address] [facility] [place], [address], 04/23/2023 13:06:55 04/22/20 23 04/23/2023 COMP. METAB OLIC PANEL (14) carbon dioxide, total 28 mmol/ L 20- Not Available [facility] ([facility]) [address] [place], [address], 04/23/2023 13:06:55 04/22/20 23 04/23/2023 COMP. METAB OLIC PANEL (14) calcium 9.4 mg/dL 8.7-10 .3 Not Available [facility] ([facility]) [address] [place], [address], 04/23/2023 13:06:55 04/22/20 23 04/23/2023 COMP. METAB OLIC PANEL (14) protein, total 7.4 g/dL 6.0-8. 5 Not Available [facility] ([facility]) [address] [place], [address], 04/23/2023 13:06:55 04/22/20 23 04/23/2023 COMP. METAB OLIC PANEL (14) albumin 3.9 g/dL 3.9-4. 9 Not Available [facility] ([facility]) [address] [place], [address], 04/23/2023 13:06:55 04/22/20 23 04/23/2023 COMP. METAB OLIC PANEL (14) globulin, total 3.5 g/dL 1.5-4. 5 Not Available [facility] ([facility]) [address] [place], [address], 04/23/2023 13:06:55 04/22/20 23 04/23/2023 COMP. METAB OLIC PANEL (14) A/G ratio 1.1 1.2-2. 2 below low normal Not Available [facility] ([facility]) [address] [place], [address], 04/23/2023 13:06:55 04/22/20 23 04/23/2023 COMP. METAB OLIC PANEL (14) bilirubin, total 0.6 mg/dL 0.0-1. 2 Not Available [facility] ([facility]) [address] [facility] [place], [address], 04/23/2023 13:06:55 04/22/20 23 04/23/2023 COMP. METAB OLIC PANEL (14) alkaline phosphatase 145 IU/L 44-121 above high normal Not Available [facility] ([facility]) [address] [facility] [place], [address], 04/23/2023 13:06:55 04/22/20 23 04/23/2023 COMP. METAB OLIC PANEL (14) AST (SGOT) 45 IU/L 0-40 above high normal Not Available [facility] ([facility]) [address] [facility], [place], [address], 04/23/2023 13:06:55 04/22/20 23 04/23/2023 COMP. METAB OLIC PANEL (14) ALT (SGPT) 33 IU/L 0-32 above high normal Not Available [facility] ([facility]) [address] [place], [address], 04/23/2023 13:06:55 04/22/20 23 04/23/2023 ALBUM IN/CR EAT RATIO , RANDO M UR creatinine, urine 75.9 mg/dL not estab. Not Available [facility] ([facility]) [address] [place], [address], 04/23/2023 13:06:56 04/22/20 23 04/23/2023 ALBUM IN/CR EAT RATIO , RANDO M UR albumin, urine 4.9 ug/mL not estab. Not Available [facility] ([facility]) [address] [place], [address], 04/23/2023 13:06:56 04/22/20 23 04/23/2023 ALBUM IN/CR EAT RATIO , WESTON Hernández UR alb/creat ratio 6 mg/g_ creat 0-29 Blanka l: 0 - 29 Moder ately incre ased: 30 - 300 Sever lemuel incre ased: >300 Not Available [facility] ([facility]) [address] [facility], [place], [address], 04/23/2023 13:06:56 04/22/20 23 04/23/2023 INSUL IN AND C-PEP TIDE, SERUM insulin 92.0 uIU/m L 2.6-24 .9 above high normal Not Available [facility] ([facility]) [address] [facility], [place], [address], 04/23/2023 13:06:56 04/22/20 23 04/23/2023 INSUL IN AND C-PEP TIDE, SERUM C-peptide, serum 11.8 NG/mL 1.1-4. 4 above high normal C-Pep tide refer ence inter rimma is for fasti ng patie nts. Not Available [facility] ([facility]) [address] [facility], [place], [address], 04/23/2023 13:06:56 04/22/2004/23/2023 HEMOG LOBIN A1C hemoglobin A1C 7.4 % 4.8-5. 6 above high normal Predi abete s: 5.7 - 6.4 Diabe reynold: >6.4 Glyce eve contr ol for adult s with diabe reynold: <7.0 Not Available [facility] ([facility]) [address] [facility], [place], [address], 04/23/2023 13:06:57 05/31/20 22 05/31/2022 XR, chest , 2 view No observ ation record ed. [facility] [address], [place], [address], 06/04/2022 17:15:22 04/22/20 23 12/26/2021 MAMMO , diagn ostic , digit al, unila teral No observ ation record ed. [facility] (Med Record) [address], [place], [address], 04/22/2023 14:40:09 Result Notes None recorded. Problems Name Problem SNOMED Code Status Onset Date Resolution Date Notes Provider Name and Address Organization Details Recorded Time Type 2 diabetes mellitus 40588648 Active 2021 Rmaónanali kristen, [employer] [address], [place], [address], [place] - [facility] 2 10:51:37 Hypertensive disorder 98351919 Active 2021 Ramónanali kristen, [employer] [address], [place], [address], [place] [facility] 2 10:51:29 Chronic kidney disease stage 3 387731190 Active 2021 Ramónanali kristen, [employer] [address], [place], [address], [place] [facility] 2 10:51:25 Chronic back pain 837132807 Active 2021 Ramónanali kristen, [employer] [address], [place], [address], [place] [facility] 2 10:51:22 Heart disease 19268591 Active 2021 Ramóntiffanisavanah Rodriguezkristen, [employer] [address], [place], [address], [place] - [facility] 2 10:51:27 Problem Notes None recorded. Procedures Surgical History Date Name Laterality Status Provider Name and Address Organization Details Recorded Time 12/27/19 Date of Last Mammogram completed Vero Stears [place] - [facility] 04/22/2023 14:33:38 placement of stent in pulmonary artery completed Vero Stears [place] - [facility] 05/28/2022 10:29:59 biopsy of liver completed Vero Stears [place] - [facility] 05/28/2022 10:30:04 biopsy of breast completed Vero Stears [place] - [facility] 05/28/2022 10:30:12 Cholecystectomy, laparoscopic completed Vero Stears [place] - [facility] 05/28/2022 10:30:19 Cardiac Cath completed Vero Delgado [place] - [facility] 05/28/2022 10:30:26 Colonoscopy completed Vero HIGGINS - [facility] 05/28/2022 10:30:32 Imaging Results None [...] Updated DateTime 3 170.18 cm 32.3 kg/m2 15766.0 3 g 97.6 [degF] 90 /min 95 [...] Updated DateTime 4 170.18 cm 31.5 kg/m2 76517.7 7 g 98 % 98 % 18 [...] Updated DateTime 3 170.18 cm 32.4 kg/m2 07907.6 2 g 97.5 [degF] 18 /min 91 % 91 % 84 /min 136 mm[Hg] 78 mm[Hg] Vero Delgado [place] - [facility] 3 09:56:51 Date Recorded Body weight Body mass index (BMI) Body height Respiratory rate Oxygen saturation Oxygen saturation in Arterial blood by Pulse oximetry Heart rate Body temperature Systolic blood pressure Diastolic blood pressure Provider Name and Address Organization Details Last Updated DateTime 2 89327.9 2 g 30.4 kg/m2 170.18 cm 18 /min 95 % 95 % 96 /min 97.5 [degF] 148 mm[Hg] 78 mm[Hg] Vero Delgado [place] - [facility] 2 10:14:48 Social History Question Answer Notes LastModified by Organizat ion Details LastModified Time Tobacco Smoking Status Never Smoker Verolizy Delgado [facility] 05/28/2022 10:27:58 Do You Have An Advance Directive? No Information not available 05/28/2022 Are You Blind Or Do You Have Difficulty Seeing? Yes Blurry, Hard To See Far Away, Has Eye Dr. Hidalgo 05-29-[address] Gallegos [facility] [place] [facility] Information not available 05/28/2022 What Is Your [...] Or The Highest Degree You Have Received? [id number] Information not available 05/28/2022 Have There Been Any Changes To Your Family Or Social Situation? No Information not available 05/28/2022 What Is The Fluoride Status Of Your Home? Unknown Information not available 05/28/2022 Do You Have A Medical Power Of Latex Caster? No Information not available 05/28/2022 What Was [...] anxious, or unable to sleep at night)? [id number] Information not available 05/28/2022 Do you have [...] quadrivalent, preservative 8 completed Vero Stears [place], [place] [facility] 09/03/2022 11:27:52 zoster recombinant 1 completed Vero Ste[place] [facility] 09/03/2022 11:27:52 zoster recombinant 0 completed Vero Stears null, - [facility] 09/03/2022 11:27:52 zoster recombinant 1 completed Vero [place] [facility] 09/03/2022 11:27:52 MMR 7 completed Vero Stears [place] [facility] 09/03/2022 11:27:52 COVID-19, mRNA, LNP-S, PF, 100 mcg/0.5mL dose or 50 mcg/0.25mL dose 1 completed Vero Stears null, - [facility] 09/03/2022 11:27:52 COVID-19, mRNA, LNP-S, PF, 100 mcg/0.5mL dose or 50 mcg/0.25mL dose 1 completed Vero Stears [place] [facility] 09/03/2022 11:27:52 COVID-19, mRNA, LNP-S, PF, 100 mcg/0.5mL dose or 50 mcg/0.25mL dose 1 completed Vero Stears [place], [place] [facility] 09/03/2022 11:27:52 pneumococcal polysaccharide PPV23 0 completed Vero Stears null, - [facility] 09/03/2022 11:27:52 Tdap 1 completed Vero Stears [place], [place] [facility] 09/03/2022 11:27:52 Pneumococcal conjugate PCV 13 6 completed Vero Stears null, [place] - [facility] 09/03/2022 11:27:52 Influenza, split virus, trivalent, preservative 8 completed Vero Stears null, [facility] [place] 09/03/2022 11:27:52 Influenza, split virus, trivalent, preservative 7 completed Vero Stears null, [facility] [place] 09/03/2022 11:27:52 Influenza, split virus, trivalent, preservative 6 completed Vero Stears null, [facility] [place] 09/03/2022 11:27:52 Influenza, split virus, trivalent, PF 2 completed Vero Stears null, [facility] [place] 09/03/2022 11:27:52 Influenza, split virus, trivalent, PF 1 completed Vero Stears null, [facility] [place] 09/03/2022 11:27:52 Influenza, split virus, trivalent, PF 4 completed Vero Stears null, [facility] [place] 09/03/2022 11:27:52 Influenza, split virus, trivalent, PF 3 completed Vero Stears null, [facility] [place] 09/03/2022 11:27:52 Hep B, adult 2 completed Vero Stears null, [facility] [place] 09/03/2022 11:27:52 Hep A, adult 2 completed Vero Stears null, [facility] [place] 09/03/2022 11:27:52 Influenza, split virus, quadrivalent, PF 6 completed Vero Stears null, [facility] [place] 09/03/2022 11:27:52 Influenza, split virus, quadrivalent, PF 9 completed Vero Stears null, [facility] [place] 09/03/2022 11:27:52 Influenza, split virus, quadrivalent, PF 5 completed Vero Stears null, [facility] [place] 09/03/2022 11:27:52 Influenza, split virus, quadrivalent, PF 0 completed Vero Stears null, [facility] [place] 09/03/2022 11:27:52 Hep A-Hep B 2 completed Vero [place] - [facility] 09/03/2022 11:27:52 Past Encounters Encounter ID Performer Location Encounter Start Date Encounter Closed Date Diagnosis/Indication Diagnosis SNOMED-CT Code Diagnosis ICD10 Code Diagnosis Note [id number] Mary Henry [address] [address] 05/28/2022 09:58:35 05/28/2022 11:06:38 Chronic back pain 543117157 G89.29 Type 2 jose betes mellitus 27070800 Z79.4 omnipod ordereddm packet given to pt Hypertensive disorder 38 770999 I10 Heart disease 96470382 I 51.9 Chronic ki dney disease stage 3 921293718 N18.30 Diabetic foot ulcer 3710 77055 E13.328 [id number] Mary Henry [address] [address] 09/03/2022 10:47:25 09/03/2022 12:32:31 Chronic kidney disease stage 3 646003758 N18.30 Hypertensive disorder 38 388444 I10 Type 2 jose betes mellitus 62751831 Z79.4 continue with omnipod training, labs to obtain baseline Chronic back pain 351625 002 G89.29 Heart disease 86756877 I 51.9 [id number] Mary Henry [address] [address] 04/22/2023 09:29:27 04/22/2023 11:55:30 Type 2 diabetes mellitus 31984219 Z79.4 will train on omnipod tomorrow at 1130 Body mass index 30+ - obesity 364419837 Z68.32 32.4 Obesity 760692550 E66.9 Chronic ki dney disease stage 3 553247775 N18.30 Heart disease 87810018 I 51.9 Hypertensive disorder 38 321429 I10 Uncontroll ed type 2 diabetes mellitus 311074112 E11.65 [id number] Mary Henry [address] [address] 03/26/2024 14:50:04 03/26/2024 15:51:17 Heart murmur 94306156 R01.1 echosee cardiology on at 11if any issues go to ed Type 2 jose ghada mellitus 98343544 Z79.4 obtain copy of labs from her other pcp.long discussion about med Hypertensive disorder 38 627099 I10 continue meds Heart disease 32242302 I 51.9 follow up with cardiology Chronic ki dney disease stage 3 657170236 N18.30 labs Health Concerns Section Related Observation LastModified by Organization Detai ls LastModified Time None Recorded Concern Status LastModified by Organization Details LastModified Time None Recorded Advance Directives Directive N: Payers Insurance Date Sequence Insurance Name Policy Number Policy Deng Covered Member ID Deng Member ID Guarantor Name 09/27/2024 1 [employer] [place] (MEDICARE REPLACEMENT/ ADVANTAGE - HMO) Mary Coronel [id number] Mary Wilde Homer 09/27/2024 2 [employer] [place] (MEDICA[place] H[place]) Mary Wilde Homer [id number] Mary Wilde Homer 09/27/2024 [employer] [place] [facility] (MEDICARE) Mary Wilde Homer [id number] Mary Wilde Homer 09/27/2024 [place] [facility] (MEDICAID) Mary Wilde Homer [id number] Mary Wilde [place] 05/01/2023 1 [place]IC[place] Mary Wilde Homer [id number] Mary Wilde Homer Notes Date Note Type [...] foot on the 2nd toe Mary Henry, [employer] [address], [place], [place], [address], [place] - [facility] 05/28/2022 14:18:03 09/03/2022 text/html Mary is a 62 ye ar old female who presents to the office today for a 3 month follow up ondiabetes.pt states she has a appointment tomorrow for her training for omnipod insulin pump. pt states she has been watching her glucose and its been running 120-160 on most days Mary HenryÁNGEL [address], [place], [address], [place] - [facility] 09/03/2022 13:33:38 04/22/2023 text/html Mary is a 63 ye ar old female who presents to the office today for a diabetic follow up. pt states her glucose has been high. pt states she takes 5 shots per day and wears a dexcom. she has a omnipod but has not done thr training to get it started Mary RodriguezÁNGEL peterson [address], [place], [id number], [facility] - [facility] 05/01/2023 14:27:32 03/26/2024 text/html Diabetes [...] stomach issues each time she eats Mary HenryÁNGEL [address], [place], [id number], [place] - [facility] 03/26/2024 16:02:49 OBGyn Episode No OBEpisode recorded.
--- OUTSIDE RECORDS SUMMARY | 2025-01-19 10:52 | XMS_ITS | Clinical Summary ---
Author Organization [employer] Address [address] [place] [address] Care Team Providers Care Counter Server Name Role Phone Provider, Not In System [...] Type Department Care Team Description 12/06/2024 Telephone [facility] - [facility] [address] [place] [address] Mimi Moreno RN Appointment 12/01/2024 9:19 AM EDT - 12/01/2024 9:[address] [facility] Endoscopy [address] [place] [address] Scott Daley MD EGD, WITH FOREIGN BODY REMOVAL 12/01/2024 8:55 AM EDT Anesthesia Event [facility] Endoscopy [address] [place] [address] Ashtyn Sanchez MD 11/30/2024 1:43 AM EDT - 12/14/2024 5:30 PM EDT Hospital Encounter [facility] 5B Medical Telemetry Unit [address] [place] [address] Albert Garcia MD Shamsulddin, Haider, [...] your living situation today? I have a [facility] place to live 11/30/2024 Think about [...] Do you speak a language other than [place] at [facility]? No 11/30/2024 Do you want help with [...] Description 01/27/2025 10:45 AM EDT Office Visit [facility] Electrophysiology [address] [phone] Deysi Jon MD [address] [place] [address] [address] [place] [address] Health Maintenance Due Date Last Done Comments [...] 05/13/2021, 04/15/2021, 11/08/2020 Medicare IPPE (Welcome to [facility]) [id number] 07/28/2024 Influenza Vaccine (Season Ended) 2025 Pneumococcal 50+ years (3 of 3 - PCV20 or PCV21) 05/15/2025 05/15/2020, 07/09/2016 DTAP/TDAP/TD VACCINES (2 - T d or Tdap) 02/25/2031 02/25/2021 Respiratory Syncytial Virus (RSV) Adult or (1 - 1-dose 75+ series) 2037 Shingles Vaccine (Zoster) Completed 2020, 08/15/2020, 05/31/2020 Procedures Procedure Name Priority Date/Time Associated Diagnosis Comments NOVA GLUCOSE POC Routine 12/14/2024 3:4 1 PM EDT NOVA GLUCOSE POC Routine 12/14/2024 [...] GLUCOSE POC Routine 12/13/2024 5:46 AM EDT [facility] CBC SCAN Routine 12/13/2024 3:15 AM [...] GLUCOSE POC Routine 12/12/2024 5:43 AM EDT [facility] CBC SCAN Routine 12/12/2024 3:47 AM [...] PARACENTESIS Routine 11/30/2024 4:17 PM EDT CYTOLOGY ([facility]) AP Routine 11/30/2024 4:03 PM EDT [facility] PROTEIN, BODY FLUID Routine 11/30/2024 4 :03 PM EDT GLUCOSE, BODY FLUID Routine 11/30/2024 4 :03 PM EDT BODY FLUID/CSF- PATH REVIEW LAB ONLY ([facility]) Routine 11/30/2024 4:03 PM EDT Melena [facility] DIFFERENTIAL, BODY FLUID Routine 11/30/2024 4:03 [...] of63 resultswithin the time period is included. [facility] POC-GLUCOSE 203(H) 70 - 110 mg/dL 12/14/2024 3:42 PM EDT [facility] Comment: In the event of poor peripheral blood flow, venous or arterial blood should be used due to the potential of erroneous results. Notified Nurse RBV Hog Counter [id number] 12/14/2024 3:42 PM EDT [facility] Blood WHOLE BLOOD / Unknown 12/14/2024 3:41 PM EDT 12/14/2024 3:42 PM EDT Narrative [facility] - 12/14/2024 3:42 PM EDT Hog Counter ID is - [id number] David Coffman PA-C POINT OF CARE TEST ORDERABLES Final Result Performing Organization Address City/[facility] Co de Phone Number [facility] [address] [phone] * ECG 12 lead (12/14/2024 9:10 AM EDT) Only the most recent of13 resultswithin the time period is included. VENTRICULAR RATE EKG/MIN 89 BPM GE MUSE ATRIAL RATE (MCT) [address] Interval 146 ms GE MUSE QRS-INTERVAL (MSEC) 86 ms GE MUSE QT Interval 432 ms GE MUSE QTC Interval 525 ms GE MUSE P [place] 34 degrees GE MUSE R AXIS (MCT) -13 degrees GE MUSE T Wave [place] -2 degrees GE MUSE [place] Diagnosis Normal sinus rhythm Septal infarct (cited on or before 14-DEC-2024 ) Confirmed by DEYSI JON M.D. ([id number]) on 12/14/2024 5:07:26 PM GE MUSE 12/14/2024 9:10 AM EDT 12/14/2024 5:07 PM EDT Deysi Jon MD ECG ORDERABLES Final Result Performing Organization Address City/[facility] Co de Phone Number Info MUSE * (ABNORMAL) CBC with automated diff (12/14/2024 2:54 AM EDT) Only the most recent of7 resultswithin the time period is included. WBC 1.4(LL) 4.0 - 10.0 K/ L 12/14/2024 3:45 AM EDT [facility] RBC 2.45(L) 3.93 - 5.22 M/ L 12/14/2024 3:45 AM EDT [facility] Hemoglobin 7.6(L) 11.2 - 15.7 GM/DL 12/14/2024 3:45 AM EDT [facility] Hematocrit 24.1(L) 34.1 - 44.9 % 12/14/2024 3:45 AM EDT [facility] MCV 98(H) 79 - 95 fL 12/14/2024 3:45 AM EDT [facility] MCH 31.0 25.6 - 32.2 pg 12/14/2024 3:45 AM EDT [facility] MCHC 31.5(L) 32.2 - 35.5 GM/DL 12/14/2024 3:45 AM EDT [facility] RDW 16.3(H) 11.7 - 14.4 % 12/14/2024 3:45 AM EDT [facility] Platelets 51(L) 140 - 375 K/CU MM 12/14/2024 3:45 AM EDT [facility] MPV 12.3 9.4 - 12.3 fL 12/14/2024 3:45 AM EDT [facility] % Neutros 54 34 - 71 % 12/14/2024 3:45 AM EDT [facility] % Lymphs 32 19 - 52 % 12/14/2024 3:45 AM EDT [facility] % Monos 14(H) 5 - 13 % 12/14/2024 3:45 AM EDT [facility] % Eos 0(L) 1 - 6 % 12/14/2024 3:45 AM EDT [facility] % Baso 1 0 - 1 % 12/14/2024 3:45 AM EDT [facility] NRBC Absolute <0.01 0 - 0.012 K/ul 12/14/2024 3:45 AM EDT [facility] # Neutros 0.76(L) 1.56 - 6.13 K/ L 12/14/2024 3:45 AM EDT [facility] # Lymphs 0.45(L) 1.18 - 3.74 K/ L 12/14/2024 3:45 AM EDT [facility] # Monos 0.19(L) 0.24 - 0.86 K/ L 12/14/2024 3:45 AM EDT [facility] # Eos <0.03(L) 0.04 - 0.36 K/ L 12/14/2024 3:45 AM EDT [facility] # Baso <0.03 0.01 - 0.08 K/ L 12/14/2024 3:45 AM EDT [facility] Immature Granulocytes-Re lative 0.00(L) 0.01 - 0.43 % 12/14/2024 3:45 AM EDT [facility] # IG <0.03 0.00 - 0.03 K/uL 12/14/2024 3:45 AM EDT [facility] Blood Venipuncture / Unknown 12/14/2024 2:54 AM EDT 12/14/2024 3:27 AM EDT Narrative [facility] - 12/14/2024 3:45 AM [...] PA-C LAB BLOOD ORDERABLES Final Re sult [facility] [address] [phone] * (ABNORMAL) Comprehensive metabolic panel (12/14/2024 2:54 AM EDT) Only the most recent of9 resultswithin the time period is included. Sodium 145 136 - 145 meq/L 12/14/2024 4:13 AM EDT [facility] Potassium 3.5 3.4 - 5.1 meq/L 12/14/2024 4:[address] [facility] Chloride 109 98 - 112 meq/L 12/14/2024 4:[address] [facility] CO2 27 22 - 29 meq/L 12/14/2024 4:[address] [facility] Calcium 8.6 8.4 - 10.2 mg/dL 12/14/2024 4:[address] [facility] Glucose 146(H) 82 - 115 mg/dL 12/14/2024 4:[address] [facility] BUN 67.7(H) 9.8 - 20.1 mg/dL 12/14/2024 4:[address] [facility] Creatinine 2.22(H) 0.57 - 1.11 mg/dL 12/14/2024 4:[address] [facility] BUN/Creatinine 30(H) 8 - 20 12/14/2024 4:[address] [facility] eGFR (mL/min/1.73m2) 25(L) >=60 mL/min/1. 73m2 12/14/2024 4:[address] [facility] Albumin 3.2(L) 3.5 - 5.0 g/dL 12/14/2024 4:[address] [facility] Alkaline Phosphatase 56 40 - 150 U/L 12/14/2024 4:[address] [facility] ALT 21 <=34 U/L 12/14/2024 4:[address] [facility] Comment: ALT2 reagent used for testing does not contain P5P supplementation and therefore may miss ALT elevations in patients with B6 deficiency. This population may be as high as 10% in the [place], with risk factors including malabsorption, drug interactions, and alcoholic hepatitis. AST 52(H) 11 - 34 U/L 12/14/2024 4:[address] [facility] Comment: AST2 reagent used for testing does not contain P5P supplementation and therefore may miss AST elevations in patients with B6 deficiency. This population may be as high as 10% in the [place], with risk factors including malabsorption, drug interactions, and alcoholic hepatitis. Total Bilirubin 0.9 0.2 - 1.2 mg/dL 12/14/2024 4:13 AM EDT [facility] Protein, Total 5.9(L) 6.4 - 8.3 g/dL 12/14/2024 4:13 AM EDT [facility] Globulin 2.7 2.5 - 4.1 g/dL 12/14/2024 4:13 AM EDT [facility] Anion Gap 13(H) 4 - 12 12/14/2024 4:13 AM EDT [facility] A/G Ratio 1.2 0.7 - 1.9 12/14/2024 4:13 AM EDT [facility] Osmolality Calc 311.0 mOsm/kg 4:13 AM EDT [facility] Blood Venipuncture / Unknown 12/14/2024 2:54 AM EDT 12/14/2024 3:26 AM EDT us David Coffman PA-C LAB BLOOD ORDERABLES Final Re sult Performing Organization Address City/[facility]/ZIP Co de Phone Number [facility] [address] [phone] * (ABNORMAL) CBC Scan (12/13/2024 3:15 AM EDT) Only the most recent of2 resultswithin the time period is included. Platelet Estimate Decreased (A) Adequate 12/13/2024 4:55 AM EDT [facility] RBC Morphology abnormal( A) Normal 12/13/2024 4:55 AM EDT [facility] Anisocytosis 1+ 12/13/2024 4:55 AM EDT [facility] Hypochromia 1+ 12/13/2024 4:55 AM EDT [facility] Ovalocytes 1+ 12/13/2024 4:55 AM EDT [facility] Blood Venipuncture / Unknown 12/13/2024 3:15 AM EDT 12/13/2024 3:27 AM EDT Venkatesh Stephen MD LAB BLOOD ORDERABLES Final Resul t [facility] 1 [place] [address], [facility] [phone] * (ABNORMAL) Hepatic function panel (12/13/2024 3:15 AM EDT) Protein, Total 5.7(L) 6.4 - 8.3 g/dL 12/13/2024 4:13 AM EDT [facility] Albumin 3.1(L) 3.5 - 5.0 g/dL 12/13/2024 4:13 AM EDT [facility] Total Bilirubin 0.8 0.2 - 1.2 mg/dL 12/13/2024 4:13 AM EDT [facility] Bilirubin, Direct 0.4 0.0 - 0.5 mg/dL 12/13/2024 4:13 AM EDT [facility] Alkaline Phosphatase 53 40 - 150 U/L 12/13/2024 4:13 AM EDT [facility] Globulin 2.6 2.5 - 4.1 g/dL 12/13/2024 4:13 AM EDT [facility] A/G Ratio 1.2 0.7 - 1.9 12/13/2024 4:13 AM EDT [facility] AST 42(H) 11 - 34 U/L 12/13/2024 4:13 AM EDT [facility] Comment: AST2 reagent used for testing does not contain P5P supplementation and therefore may miss AST elevations in patients with B6 deficiency. This population may be as high as 10% in the [place], with risk factors including malabsorption, drug interactions, and alcoholic hepatitis. ALT 16 <=34 U/L 12/13/2024 4:13 AM EDT [facility] Comment: ALT2 reagent used [...] MD LAB BLOOD ORDERABLES Final Resu lt [facility] 1 [place] [address], [facility] [phone] * (ABNORMAL) Basic Metabolic Panel (12/13/2024 3:15 AM EDT) Only the most recent of6 resultswithin the time period is included. Sodium 147(H) 136 - 145 meq/L 12/13/2024 4:13 AM EDT [facility] Potassium 3.5 3.4 - 5.1 meq/L 12/13/2024 4:13 AM EDT [facility] CO2 27 22 - 29 meq/L 12/13/2024 4:13 AM EDT [facility] Chloride 110 98 - 112 meq/L 12/13/2024 4:13 AM EDT [facility] Glucose 135(H) 82 - 115 mg/dL 12/13/2024 4:13 AM EDT [facility] BUN 71.9(H) 9.8 - 20.1 mg/dL 12/13/2024 4:13 AM EDT [facility] Creatinine 2.29(H) 0.57 - 1.11 mg/dL 12/13/2024 4:13 AM EDT [facility] BUN/Creatinine 31(H) 8 - 20 12/13/2024 4:13 AM EDT [facility] Calcium 8.5 8.4 - 10.2 mg/dL 12/13/2024 4:13 AM EDT [facility] Anion Gap 14(H) 4 - 12 12/13/2024 4:13 AM EDT [facility] eGFR (mL/min/1.73m2) 24(L) >=60 mL/min/1.7 3m2 12/13/2024 4:13 AM EDT [facility] Osmolality Calc 315.6 mOsm/kg 4:13 AM EDT [facility] Blood Venipuncture / Unknown 12/13/2024 3:15 AM EDT 12/13/2024 3:39 AM EDT us Venkatesh Stephen MD LAB BLOOD ORDERABLES Final Resul t [facility] [address] [place], [place] [address] [phone] * US paracentesis (12/10/2024 11:37 AM EDT) [...] Ascites. ATTENDING PHYSICIAN: Dr. Haseeb Gil PHYSICIAN PER DIEM RN: Sujit Blackman PA-C FINDINGS: After informed consent [...] Ascites. ATTENDING PHYSICIAN: Dr. Haseeb Gil PHYSICIAN PER DIEM RN: Sujit Blackman PA-C FINDINGS: After informed consent [...] Blackman PA-C. us Mary Carmen Mcfadden MD [facility] US ORDERABLES Final Result * ALT (SGPT) (12/10/2024 9:53 AM EDT) ALT 12 <=34 U/L 12/10/2024 11:02 AM EDT [facility] Comment: ALT2 reagent used [...] MD LAB BLOOD ORDERABLES Final Resul t [facility] [address] [phone] * (ABNORMAL) AST (SGOT) (12/10/2024 9:53 AM EDT) AST 39(H) 11 - 34 U/L 12/10/2024 11:02 AM EDT [facility] Comment: AST2 reagent used for testing does not contain P5P supplementation and therefore may miss AST elevations in patients with B6 deficiency. This population may be as high as 10% in the [place], with risk factors including malabsorption, drug interactions, and alcoholic hepatitis. [employer] has become aware of sulfasalazine and sulfapyridine [...] ORDERABLES Final Resul t Performing Organization Address [facility] de Phone Number [facility] [address] [phone] * Magnesium (12/10/2024 9:53 AM EDT) Only the most recent of9 resultswithin the time period is included. Magnesium 2.3 1.6 - 2.6 mg/dL 12/10/2024 11:02 AM EDT [facility] Blood Venipuncture / Unknown 12/10/2024 9:53 AM EDT 12/10/2024 10:39 AM EDT Deysi Jon MD LAB BLOOD ORDERABLES Final Resul t Performing Organization Address [facility] de Phone Number [facility] [address] [phone] * XR chest AP portable (12/10/2024 9:10 AM EDT) Only the most recent of7 resultswithin the time period is included. Anatomical Region Laterality Modality Chest X-Ray 12/10/2024 9:40 AM EDT Impressions 12/10/2024 10:03 AM EDT Mild bibasilar atelectasis. Images reviewed, interpreted, and dictated by Dr. rDe Keenan. Transcribed by Haven Henderson PA-C. Narrative [...] Transcribed by Haven Henderson PA-C. us Blanka Alvarez MD IMG DIAGNOSTIC IMAGING ORDERA BLES Final Result * (ABNORMAL) ABG (12/10/2024 6:42 AM EDT) Only the most recent of7 resultswithin the time period is included. pH, Arterial 7.30(L) 7.35 - 7.45 12/10/2024 6:51 AM EDT [facility] pCO2, Arterial 49(H) 35 - 45 mm Hg 12/10/2024 6:51 AM EDT [facility] pO2, Arterial 119(H) 80 - 100 mm Hg 12/10/2024 6:51 AM EDT [facility] HCO3, Arterial 24 20 - 26 mmol/L 12/10/2024 6:51 AM EDT [facility] Base Excess, Arterial -2.4(L) -2.0 - 2.0 mmol/L 12/10/2024 6:51 AM EDT [facility] O2 Sat, Arterial >99.2 95.0 - 100.0 % 12/10/2024 6:51 AM EDT [facility] Comment:notified at read-anny k verification CTO2 ARTERIAL 11.9 mmol/L 12/10/2024 6:51 AM EDT [facility] THB ARTERIAL 8.5(L) 12.0 - 18.0 g/dL 12/10/2024 6:51 AM EDT [facility] SJ COLLECTION SITE Left Radial 12/10/2024 6:51 AM EDT [facility] Arterial Puncture Yes 12/10/2024 6:51 AM EDT [facility] Blood Gas O2 Delivery Device Cannula 12/10/2024 6:51 AM EDT [facility] Oxygen Flow Rate 4 12/11/19 25 6:51 AM EDT [facility] Blood Gas PT Temperature C 37.0 12/10/2024 6:51 AM EDT [facility] Sen's Test Acceptable 12/10/2024 6:51 AM EDT [facility] ABG Number of Draw Attempts 1 12/10/2024 6:51 AM EDT [facility] FIO2 12/10/2024 6:51 AM EDT [facility] Blood Gas Temperature Corrected Results No No 12/10/2024 6:51 AM EDT [facility] Blood, Arterial Collection / Unknown 12/10/2024 6:42 AM EDT 12/10/2024 6:51 AM EDT us Blanka Alvarez MD LAB BLOOD ORDERABLES Final Re sult [facility] [address] [place] [address] * (ABNORMAL) CBC - Hemogram ([facility]) (12/09/2024 3:38 AM EDT) Only the most recent of8 resultswithin the time period is included. WBC 2.4(L) 4.0 - 10.0 K/ L 12/09/2024 3:59 AM EDT [facility] RBC 2.83(L) 3.93 - 5.22 M/ L 12/09/2024 3:59 AM EDT [facility] Hemoglobin 8.5(L) 11.2 - 15.7 GM/DL 12/09/2024 3:59 AM EDT [facility] Hematocrit 28.0(L) 34.1 - 44.9 % 12/09/2024 3:59 AM EDT [facility] MCV 99(H) 79 - 95 fL 12/09/2024 3:59 AM EDT [facility] MCH 30.0 25.6 - 32.2 pg 12/09/2024 3:59 AM EDT [facility] MCHC 30.4(L) 32.2 - 35.5 GM/DL 12/09/2024 3:59 AM EDT [facility] RDW 17.2(H) 11.7 - 14.4 % 12/09/2024 3:59 AM EDT [facility] Platelets 55(L) 140 - 375 K/CU MM 12/09/2024 3:59 AM EDT [facility] MPV 11.5 9.4 - 12.3 fL 12/09/2024 3:59 AM EDT [facility] Blood Venipuncture / Unknown 12/09/2024 3:38 AM EDT 12/09/2024 3:45 AM EDT us Mary Carmen Mcfadden MD LAB BLOOD ORDERABLES Final Resu lt [facility] [address] [phone] * Erythropoietin(SENDOUT) (12/07/2024 3:59 AM EDT) Erythropoietin 19 4 - 27 mU/mL 12/08/2024 2:30 PM EDT [employer] Comment: INTERPRETIVE INFORMATION: Erythropoietin Normal serum concentrations [...] from therapy with recombinant EPO ([facility] [id number],1989). Performed By: [employer] [address] [place] [address] Regional Marketing Manager: Lalo Mortensen MD, PhD CLIA Number: [id number] Blood Venipuncture / Unknown 12/07/2024 3:59 AM EDT 12/07/2024 4:11 AM EDT us Ariel Mills MD LAB BLOOD ORDERAB[place] [address], [facility] [phone] * Ammonia (12/07/2024 3:59 AM EDT) Only the most recent of8 resultswithin the time period is included. Ammonia 44 18 - 72 mol/L 12/07/2024 4:37 AM EDT [facility] Blood Venipuncture / Unknown 12/07/2024 3:59 AM EDT 12/07/2024 4:22 AM EDT us Timothy Bai MD LAB BLOOD ORDERABLES Final Result [facility] 1 [place] [address], [facility] [phone] * (ABNORMAL) Ferritin (12/06/2024 3:13 AM EDT) Only the most recent of2 resultswithin the time period is included. Ferritin 256.82(H) 4.63 - 204.00 ng/mL 12/06/2024 8:25 AM EDT [facility] Blood Venipuncture / Unknown 12/06/2024 3:13 AM EDT 12/06/2024 3:50 AM EDT us Ariel Mills MD LAB BLOOD ORDERABLES Final Res ult [facility] [address] [phone] * (ABNORMAL) Hemoglobin (12/05/2024 3:36 PM EDT) Only the most recent of11 resultswithin the time period is included. Hemoglobin 8.1(L) 11.2 - 15.7 GM/DL 12/05/2024 3:57 PM EDT [facility] Blood Venipuncture / Unknown 12/05/2024 3:36 PM EDT 12/05/2024 3:47 PM EDT Timothy Bai MD LAB BLOOD ORDERABLES Final Result Performing Organization Address City/[facility]/ZIP Co de Phone Number [facility] [address] [phone] * ANCA Vasculitis Profile(SENDOUT) (12/04/2024 8:15 AM EDT) Myeloperoxidase (MPO) Ab, IgG 0 0 - 19 AU/mL 12/07/2024 8:52 AM EDT [employer] Comment: INTERPRETIVE INFORMATION: Myeloperoxidase Abs, IgG 19 AU/mL or Less ......... Negative 20-25 AU/mL .............. Equivocal 26 AU/mL or Greater ...... Positive Approximately 90% of patients with a P-ANCA pattern by IFA have antibodies specific for MPO. Serine Proteinase 3 (PR3) Ab, IgG 0 0 - 19 AU/mL 12/07/2024 8:52 AM EDT [facility] [employer] Comment: INTERPRETIVE INFORMATION: Serine Proteinase 3, IgG 19 AU/mL or Less ........ Negative 20-25 AU/mL ............. Equivocal 26 AU/mL or Greater ..... Positive Approximately 85% of patients with a C-ANCA pattern by IFA have antibodies specific for PR3. ANCA IFA Titer <1:20 <1:20 12/07/2024 8:52 AM EDT [facility] ANCA IFA Pattern None Detected None Detected 12/07/2024 8:52 AM EDT [facility] Comment: INTERPRETIVE INFORMATION: ANCA IFA Pattern Neutrophil Cytoplasmic Antibodies (C-ANCA = granular cytoplasmic staining, P-ANCA = perinuclear staining) are found in the serum of over 90 percent of patients with certain necrotizing systemic vasculitides, and usually in less than 5 percent of patients with collagen vascular disease or arthritis. Performed By: [employer] [address] [place] [address] Regional Marketing Manager: Lalo Mortensen MD, PhD CLIA Number: [id number] Blood Venipuncture / Unknown 12/04/2024 8:15 AM EDT 12/04/2024 8:32 AM EDT us Hema Cervantes MD LAB BLOOD ORDERABLES [place] [address], [facility] [phone] * JEANA Reflexive Profile(SENDOUT) (12/04/2024 8:15 AM EDT) Anti-Nuclear Ab (JEANA), IgG by SHARON None Detected None Detected 12/06/2024 3:51 PM EDT [facility] [employer] Comment: No Anti-Nuclear Antibodies (JEANA) detected by SHARON. The Extractable Nuclear Antigen Antibodies (FIREBRICK LAYER, Llanes, SSA 52, SSA 60, Scleroderma, Lilia-1 and SSB) and Double Stranded DNA (dsDNA) Antibody, IgG will not be performed. If suspicion of connective tissue disease is strong, and JEANA is negative by SHARON, consider testing for JEANA by IFA ([id number]). INTERPRETIVE INFORMATION: Anti-Nuclear Antibodies (JEANA), IgG by SHARON Antinuclear Antibodies (JEANA), IgG by SHARON: JEANA specimens are screened using enzyme-linked immunosorbent assay (SHARON) methodology. All SHARON results reported as Detected are further tested by indirect fluorescent assay (IFA) using HEp-2 substrate with an IgG-specific conjugate. The JEANA SHARON screen is designed to detect antibodies against dsDNA, histones, SS-A (Ro), SS-B (La), Llanes, Llanes/FIREBRICK LAYER, Scl-70, Lilia-1, centromeric proteins, other antigens extracted from the HEp-2 cell nucleus. JEANA SHARON assays have been reported to have lower sensitivities than JEANA IFA for systemic autoimmune rheumatic diseases (SARD). Negative results do not necessarily rule out SARD. Performed By: [facility] [address] [place] [address] Regional Marketing Manager: Lalo Mortensen MD, PhD CLIA Number: [id number] Blood Venipuncture / Unknown 12/04/2024 8:15 AM EDT 12/04/2024 8:32 AM EDT us Hema Cervantes MD LAB BLOOD ORDERABLES Final Re sult Performing Organization Address City/[facility]/ZIP Co de Phone Number [employer] [address] [place] [address], [facility] [phone] * Phosphorus (12/04/2024 3:34 AM EDT) Phosphorus 4.2 2.5 - 4.5 mg/dL 12/04/2024 4:04 AM EDT [facility] Blood Venipuncture / Unknown 12/04/2024 3:34 AM EDT 12/04/2024 3:41 AM EDT us Kirsty Tuttle APRN LAB BLOOD ORDERABLES Final R esult [facility] [address] [place] [address], [facility] [phone] * Creatine Kinase (CK) (12/03/2024 7:39 AM EDT) Only the most recent of2 resultswithin the time period is included. Total CK 55 29 - 168 U/L 12/03/2024 6:19 PM EDT [facility] Blood Venipuncture / Unknown 12/03/2024 7:39 AM EDT 12/03/2024 5:52 PM EDT us Hema Cervantes MD LAB BLOOD ORDERABLES Final Re sult [facility] [address] [phone] * Transfuse RBC (12/02/2024 5:03 PM EDT) [...] Pancytopenia. ATTENDING RADIOLOGIST: Dr. Haseeb Gil. PHYSICIAN PER DIEM RN: Sandra Ramsey PA-C PROCEDURE: After informed consent [...] Pancytopenia. ATTENDING RADIOLOGIST: Dr. Haseeb Gil. PHYSICIAN PER DIEM RN: Sandra Ramsey PA-C PROCEDURE: After informed consent [...] dictated by Dr. Haeseb Gil. Transcribed by Sandra Ramsey PA-C. Laura Batista MD IM CT ORDERABLES Final Result * [facility] BONE MARROW SMEAR, ASPIRATION, AND STAIN (12/02/2024 12:06 PM EDT) AP RESULT See Note: [facility]Y [facility]Y [facility] Comment: [facility] [address] [place] [address] or [phone] Joe Carlos M.D., Needle Loom Setter PATIENT NAME LABORATORY NO. MARY OLIVA. [id number] [facility] AGE SEX SSN CLIENT REF # [id number] 1960 F [id number] 1 [place] [address] REQUESTING Aleksandr ATTENDING Aleksandr. COPY TOLAURA PICHARDO DATE COLLECTED DATE RECEIVED DATE REPORTED 12/02/2024 12/02/2024 12/06/2024 ADDENDUM PRESENT ADDENDUM: Cytogenetics shows a normal female karyotype, 46,XX[20]. The original diagnosis remains unchanged. Verified by Heydi Mak M.D., MPH on 12/13/2024 Professional interpretation rendered by Heydi Mak M.D., MPH at [facility], [address] [place] [address]. DIAGNOSIS: PERIPHERAL SMEAR , BONE MARROW ASPIRATION [...] CD38, CD45, CD56, CD57, CD117, CD123, HLA-DR, [place], and Lambda. These tests use analyte specific [...] rendered by Heydi Mak M.D., MPH at [facility], [facility], [address] [place] [address]. GROSS DESCRIPTION: A. Received 1 peripheral blood smear slide for review. B. Received 5 bone marrow aspirate smear slides for review. 4 additional bone marrow aspirate smear slides made at [facility]. C. Received in a purple [...] BY: Heydi Mak M.D., MPH CPT CODES: 27063, 2FLP, 06656, 55278w2, [id number], 07535, 44956, 46291w2 Bone Marrow BONE MARROW STRUCTURE / Unknown 12/02/2024 12:06 PM EDT Laura Batista MD PATHOLOGY/CYTOLOGY ORDERABLES Edited Result - Final [facility]TOLOGY LABORATORY [address] [place] [address] * Prepare RBC: 1 Units (12/02/2024 9:36 AM EDT) Only the most recent of2 resultswithin the time period is included. Issue Date/Time [id number] [facility] BLOOD [facility] ([place]) Product Identification Red Blood Cells [facility] ([place]) Product Code [id number] [facility] ([place]) Status Information Transfused [facility] ([place]) Unit Number [id number] [facility] ([place]) Blood Type 5100 [facility] ([place]) Cross Match Results Compatible [facility] ([place]) Timothy Bai MD [id number]_BLOOD BANK PRO DUCT ORDERABLES Final Result Performing Organization Address City/[facility]/ZIP Co de Phone Number [facility] ([place]) [address] [phone] * (ABNORMAL) Hemoglobin and hematocrit (12/02/2024 7:40 AM EDT) Hemoglobin 7.4(L) 11.2 - 15.7 GM/DL 12/02/2024 9:43 AM EDT [facility] Hematocrit 23.4(L) 34.1 - 44.9 % 12/02/2024 9:43 AM EDT [facility] Blood Venipuncture / Unknown 12/02/2024 7:40 AM EDT 12/02/2024 7:47 AM EDT us Timothy Bai MD LAB BLOOD ORDERABLES Final Result [facility] [address] [place] [address] * AN SINGLE LUMEN INTUBATION (12/01/2024 9:01 [...] ABO/Rh O Positive 12/01/2024 4:53 AM EDT [facility] BLOOD [facility] ([place]) Antibody Screen Negative 12/01/2024 4:53 AM EDT [facility] BLOOD [facility] ([place]) HISTCHK HIST CHECK PERFORMED 12/01/2024 4:53 AM EDT [facility] BLOOD [facility] ([place]) Blood Venipuncture / Unknown 12/01/2024 7:08 AM EDT 12/01/2024 7:15 AM EDT us Denilson Hodgson DO [facility] BLOOD BANK TEST ORDERABLES Final Result [facility] BLOOD [facility] ([place]) [address] [place] [address] Dr [place] [address], [facility] [phone] * ABO/RH Confirmation/Retype (12/01/2024 4:06 AM EDT) RETYPE O Positive 12/01/2024 5:15 AM EDT [facility] ([place]) Comment:[id number] Blood Venipuncture / Unknown 12/01/2024 4:06 AM EDT 12/01/2024 5:14 AM EDT us Tmiothy Bai MD [facility] BLOOD BANK TEST ORDERA BLES Final Result [facility] ([place]) 1 [place] [address], [facility] [phone] * Ultrasound renal limited (11/30/2024 4:19 PM [...] and dictated by SABINE Yang. us Destiney Lalnes APRN IMG US ORDERABLES Final Res ult * DIFFERENTIAL, BODY FLUID (11/30/2024 4:03 PM EDT) Neutrophils Fluid 5 0 - 25 % 025 8:49 PM EDT [facility] Lymphocytes Fluid 46 % 025 8:49 PM EDT [facility] Unidentified Mononuclear Cells BF 49 0 - 0 % 11/30/2024 8:49 PM EDT [facility] Peritoneal Fluid BODY FLUID / Unknown 11/30/2024 4:03 PM EDT 11/30/2024 4:33 PM EDT us Huey Hurtado MD BODY FLUIDS AND STOOLS ORDERABLE S Final Result [facility] [address] [phone] * [facility] Non-Assistant Director Of Public Works Cytology (11/30/2024 4:03 PM EDT) AP RESULT See Note: PATHOLOGY AND CYTOLOGY LABORATORY Comment: [facility] [address] [place] [address] or [phone] Joe Carlos M.D., Needle Loom Setter PATIENT NAME LABORATORY NO. MARY OLIVA. [id number] AGE SEX SSN CLIENT REF # [facility] 64 1960 F [id number] 1 [facility] REQUESTING Aleksandr ATTENDING Aleksandr[place] [address] HURTADO, HUEY DATE COLLECTED DATE RECEIVED DATE REPORTED 11/30/2024 12/01/2024 12/02/2024 DIAGNOSIS: PERITONEAL FLUID: Negative for malignant cells. MICROSCOPIC DESCRIPTION: Scattered mesothelial cells and chronic inflammatory cells are present. Professional interpretation rendered by John Sanchez M.D., Elizabeth at [facility], [facility], [address] [place] [address]. CLINICAL HISTORY: Melena Anasarca Acute renal failure SPECIMENS SUBMITTED: PERITONEAL FLUID GROSS SPECIMEN DESCRIPTION: 40 ccs of hazy, light yellow fluid, scant sediment, received in fixative ThinPrep slides prepared. Cell block has been examined. REQUISITION APPROVER: SVITLANA HERNANDEZ (ASCP) REVIEWED, DIAGNOSED AND ELECTRONICALLY SIGNED BY: John Sanchez M.D., Radu.Victorina.P. CPT CODES: 08496, 14615 Peritoneal Fluid BODY FLUID / Unknown 11/30/2024 4:03 PM EDT us Huey Hurtado MD PATHOLOGY/CYTOLOGY ORDERABLES Fi nal Result [facility] [address] [place] [address] * AFB Culture And Stain (11/30/2024 4:03 PM EDT) Result No Acid Fast Bacilli isolated at 6 weeks 01/11/2025 5:00 PM EDT [facility] AFB Smear No acid fast bacilli seen 01/11/2025 5:00 PM EDT [facility] Peritoneal Fluid BODY FLUID / Unknown 11/30/2024 4:03 PM EDT 11/30/2024 4:34 PM EDT Narrative [facility] - 01/11/2025 5:00 PM EDT Specimen Description: peritoneal fluid us Huey Hurtado MD MICROBIOLOGY - GENERAL ORDERABLE S Final Result [facility] [address] [phone] * Body Fluid/CSF - Path Review (SJ) (11/30/2024 4:03 PM EDT) SENT TO PATHOLOGY FOR REVIEW Yes 12/03/2024 6:54 AM EDT [facility] Scan Result Mesothelial cells. MD German 12/02/2024 12/03/2024 6:54 AM EDT [facility] Peritoneal Fluid BODY FLUID / Unknown 11/30/2024 4:03 PM EDT 11/30/2024 4:33 PM EDT us Huey Hurtado MD BODY FLUIDS AND STOOLS ORDERABLE S Final Result [facility] [address] [phone] * Fungus Culture W/ROSA MARIA Or Nimisha Ink (11/30/2024 4:03 PM EDT) Result No fungus isolated at 6 weeks. 01/11/2025 5:00 PM EDT [facility] ROSA MARIA Prep No fungal elements seen 01/11/2025 5:00 PM EDT [facility] Peritoneal Fluid BODY FLUID / Unknown 11/30/2024 4:03 PM EDT 11/30/2024 4:34 PM EDT Narrative [facility] - 01/11/2025 5:00 PM EDT Specimen Description: peritoneal fluid us Huey Hurtado MD MICROBIOLOGY - GENERAL ORDERABLE S Final Result [facility] [address] [phone] * Glucose, body fluid (11/30/2024 4:03 PM EDT) Glucose, Body Fluid 107 See Comment mg/dL 12/01/2024 7:10 AM EDT [facility] BODY FLUID TYPE Peritoneal 12/01/2024 7:10 AM EDT [facility] Body Fluid PERITONEAL FLUID / Unknown 11/30/2024 4:03 PM EDT 12/01/2024 6:52 AM EDT [facility] - 12/01/2024 7:10 AM EDT This test has been modified from the welding systems and equipment repairer's instructions and its performance characteristics were determined [...] ORD ERABLES Final Result Performing Organization Address City/[facility]/ZIP Co de Phone Number [facility] [address] [phone] * Anaerobic Culture (11/30/2024 4:03 PM EDT) Result No Anaerobic growth 12/05/2024 6:34 AM EDT [facility] Peritoneal Fluid BODY FLUID / Unknown 11/30/2024 4:03 PM EDT 11/30/2024 4:34 PM EDT [facility] - 12/05/2024 6:34 AM EDT Specimen Description: peritoneal fluid us Huey Hurtado MD MICROBIOLOGY - GENERAL ORDERABLE S Final Result Performing Organization Address [facility] Co de Phone Number [facility] [address] [phone] * Body Fluid Culture + Gram Stain (11/30/2024 4:03 PM EDT) Result No growth 12/03/2024 9:07 AM EDT [facility] Gram Stain Result No organisms seen 12/03/2024 9:07 AM EDT [facility] Gram Stain Result No cells seen 12/03/2024 9:07 AM EDT [facility] Peritoneal Fluid BODY FLUID / Unknown 11/30/2024 4:03 PM EDT 11/30/2024 4:34 PM EDT [facility] - 12/03/2024 9:07 AM EDT Specimen Description: peritoneal fluid Huey Hurtado MD MICROBIOLOGY - GENERAL ORDERABLE S Final Result [facility] [address] [phone] * (ABNORMAL) Body fluid cell count with differential (11/30/2024 4:03 PM EDT) Appearance Cloudy(A) Clear 11/30/2024 8:49 PM EDT [facility] Color Yellow 11/30/2024 8:49 PM EDT [facility] BODY FLUID TYPE Peritoneal 11/30/2024 8:49 PM EDT [facility] Auto WBC/Nucleated Cells BF 85 /uL 11/30/2024 8:49 PM EDT [facility] Comment: Please refer to specific WBC/Nucleated Cell Count Body Fluid reference ranges below: For Pleural: 0-1000 Peritoneal: 0-1000 Pericardial:0-1000 Synovial: 0-200 Auto RBC BF <3,000 /uL 11/30/2024 8:49 PM EDT [facility] Comment: Please refer to specific RBC Cell Count Body Fluid reference ranges below: Pleural: 0-10,000 Peritoneal: 0-10,000 Pericardial:0-10,000 Synovial:0-30 Peritoneal Fluid BODY FLUID / Unknown 11/30/2024 4:03 PM EDT 11/30/2024 4:33 PM EDT Narrative [facility] - 11/30/2024 8:49 PM EDT There is normally no readily obtainable pleural, peritoneal and pericardial fluid, hence normal elements for these potential fluids are not defined. us Huey Hurtado MD BODY FLUIDS AND STOOLS ORDERABLE S Final Result [facility] [address] [phone] * Protein, body fluid (11/30/2024 4:03 PM EDT) Protein, Fluid 1.9 See Comment g/dL 12/01/2024 7:10 AM EDT [facility] BODY FLUID TYPE Peritoneal 12/01/2024 7:10 AM EDT [facility] Body Fluid PERITONEAL FLUID / Unknown 11/30/2024 4:03 PM EDT 12/01/2024 6:52 AM EDT [facility] - 12/01/2024 7:10 AM EDT This test has been modified from the welding systems and equipment repairer's instructions and its performance characteristics were determined [...] ORD ERABLES Final Result Performing Organization Address [facility] Co de Phone Number [facility] [address] [phone] * Lactate dehydrogenase (LDH), body fluid (11/30/2024 4:03 PM EDT) LDH, Fluid 71 See Comment U/L 11/30/2024 6:19 PM EDT [facility] BODY FLUID TYPE Peritoneal 11/30/2024 6:19 PM EDT [facility] Peritoneal Fluid BODY FLUID / Unknown 11/30/2024 4:03 PM EDT 11/30/2024 4:33 PM EDT [facility] - 11/30/2024 6:19 PM EDT This test has been modified from the welding systems and equipment repairer's instructions and its performance characteristics were determined [...] ORDERABLE S Final Result Performing Organization Address [facility] Co de Phone Number [facility] [address] [phone] * (ABNORMAL) Urinalysis, Reflex Microscopic and Culture If Indicated (11/30/2024 11:35 AM EDT) Color, UA Light Yellow 11/30/2024 12:06 PM EDT [facility] Clarity, UA Turbid(A) Clear 11/30/2024 12:06 PM EDT [facility] Specific [place], UA 1.011 1.005 - 1.030 11/30/2024 12:06 PM EDT [facility] pH, UA 5.0(L) 6.0 - 8.0 11/30/2024 12:06 PM EDT [facility] Leukocytes, UA 500 Félix/uL(A) Negative 11/30/2024 12:06 PM EDT [facility] Nitrite, UA Negative Negative 11/30/2024 12:06 PM EDT [facility] Protein, UA Negative Negative 11/30/2024 12:06 PM EDT [facility] Glucose, UA Normal Normal 11/30/2024 12:06 PM EDT [facility] Ketones, UA Negative Negative 11/30/2024 12:06 PM EDT [facility] Bilirubin, UA Negative Negative 11/30/2024 12:06 PM EDT [facility] Blood, UA Negative Negative 11/30/2024 12:06 PM EDT [facility] Urobilinogen, UA Normal Normal 11/30/2024 12:06 PM EDT [facility] Specimen Source Urine, Clean Catch 11/30/2024 12:06 PM EDT [facility] Urine URINE SPECIMEN COLLECTION, CLEAN CATCH / Unknown 11/30/2024 11:35 AM EDT 11/30/2024 11:41 AM EDT us Destiney Llanes JANITOR AND CLEANER URINE ORDERABLES Final Resu lt [facility] [address] [phone] * (ABNORMAL) Urinalysis Microscopic Only (11/30/2024 11:35 AM EDT) WBC, UA 21-50(A) None Seen /HPF 11/30/2024 12:06 PM EDT [facility] RBC, UA 0-2(A) None Seen /HPF 11/30/2024 12:06 PM EDT [facility] Bacteria, UA 1+(A) None Seen, Trace 11/30/2024 12:06 PM EDT [facility] Mucus 1+(A) None Seen 11/30/2024 12:06 PM EDT [facility] SQUAMOUS EPITHELIAL 3-5(A) None Seen /HPF 11/30/2024 12:06 PM EDT [facility] HYALINE CASTS 21-50(A) None Seen /LPF 11/30/2024 12:06 PM EDT [facility] Urine URINE SPECIMEN COLLECTION, CLEAN CATCH / Unknown 11/30/2024 11:35 AM EDT 11/30/2024 11:41 AM EDT us Destiney Llanes APRN URINE ORDERABLES Final Resu lt [facility] [address] [phone] * Urea Nitrogen, random urine (11/30/2024 11:35 AM EDT) Urea Nitrogen, Ur 305 mg/dL 11/30/2024 12:36 PM EDT [facility] Comment:Reference Range not established Urine 11/30/2024 11:3 5 AM EDT 11/30/2024 12:15 PM EDT us Hill Boo MD URINE ORDERABLES Final Result [facility] [address] [phone] * Protein / creatinine ratio, urine (11/30/2024 11:35 AM EDT) Creatinine, Ur 62.00 47.00 - 110.00 mg/dL 11/30/2024 12:36 PM EDT [facility] Protein Creatinine Ratio 0.19 <=0.20 11/30/2024 12:36 PM EDT [facility] Protein, Urine 12 1 - 14 mg/dL 11/30/2024 12:36 PM EDT [facility] Urine 11/30/2024 11:3 5 AM EDT 11/30/2024 12:15 PM EDT us Hill Boo MD URINE ORDERABLES Final Result Performing Organization Address City/[facility]/ZIP Co de Phone Number [facility] [address] [phone] * Sodium, random urine (11/30/2024 11:35 AM EDT) Sodium Urine 83 See Comment meq/L 11/30/2024 12:36 PM EDT [facility] Comment:Reference Range not established Urine 11/30/2024 11:3 5 AM EDT 11/30/2024 12:15 PM EDT us Hill Boo MD URINE ORDERABLES Final Result Performing Organization Address [facility]/ZIP Co de Phone Number [facility] [address] [phone] * Urine Culture (11/30/2024 11:35 AM EDT) Result Recollect Specimen - 3 or more organisms suggests contamination 12/01/2024 6:49 AM EDT [facility] Urine URINE SPECIMEN COLLECTION, CLEAN CATCH / Unknown 11/30/2024 11:35 AM EDT 11/30/2024 11:41 AM EDT us Destiney Llanes APRN MICROBIOLOGY - GENERAL ORDE YAKELIN Final Result Performing Organization Address [facility]/ZIP Co de Phone Number [facility] [address] [phone] * (ABNORMAL) Monoclonal Protein Study, Expanded Panel(SENDOUT) (11/30/2024 11:01 AM EDT) [facility] Total Protein, Serum 6.2(L) 6.3 - 8.2 g/dL 12/03/2024 12:57 PM EDT [facility] Albumin 2.71(L) 3.75 - 5.01 g/dL 12/03/2024 12:57 PM EDT [facility] Alpha 1 Globulin 0.34 0.19 - 0.46 g/dL 12/03/2024 12:57 PM EDT [facility] Alpha 2 Globulin 0.38(L) 0.48 - 1.05 g/dL 12/03/2024 12:57 PM EDT [facility] Beta Globulin 1.30(H) 0.48 - 1.10 g/dL 12/03/2024 12:57 PM EDT [facility] Gamma 1.47 0.62 - 1.51 g/dL 12/03/2024 12:57 PM [facility] Immunofixation MAEGAN Done 12/03/2024 12:57 PM [facility] Immunoglobulin G 1484 768 - 1632 mg/dL 12/03/2024 12:57 PM T [facility] Immunoglobulin A 686(H) 68 - 408 mg/dL 12/03/2024 12:57 PM T [facility] Immunoglobulin M 126 35 - 263 mg/dL 12/03/2024 12:57 PM T [facility] Monoclonal Protein Not Applicable <=0.00 g/dL 12/03/2024 12:57 PM T [facility] [place] Qnt Free Light Chains 173.10(H) 3.30 - 19.40 mg/L 12/03/2024 12:57 PM T [facility] Comment: INTERPRETIVE INFORMATION: [place] Qnt Free Light Chains Undetected antigen excess is a rare event but cannot be excluded. Free light chain results should always be interpreted in conjunction with other clinical and laboratory findings. Lambda Qnt Free Light Chains 123.84(H) 5.71 - 26.30 mg/L 12/03/2024 12:57 PM [facility] Comment: INTERPRETIVE INFORMATION: Lambda Qnt Free Light Chains Undetected antigen excess is a rare event but cannot be excluded. Free light chain results should always be interpreted in conjunction with other clinical and laboratory findings. [place]/Lambda Free Light Chain Ratio 1.40 0.26 - 1.65 12/03/2024 12:57 PM EDT [facility] SPEP/MAEGAN Interpretation See Note 12/03/2024 12:57 PM EDT [employer] [facility] [employer] Comment: Restricted band in the beta region [...] Serum See Note 12/03/2024 12:57 PM EDT [employer] [facility] Comment: Authorized individuals can access the [facility] [employer]) Enhanced Report with an [employer] Connect account using the following link. Your local lab can assist you in obtaining the patient report if you don't have a Connect account. [email or web address] Performed By: [employer] [address] [place] [address] Regional Marketing Manager: Lalo Mortensen MD, PhD CLIA Number: [id number] Blood Venipuncture / Unknown 11/30/2024 11:01 AM EDT 11/30/2024 12:17 PM EDT Alejandrejax Boo MD LAB BLOOD ORDERABLES Final Resu lt [facility] [address] [place] [address], [facility] [phone] * Alpha Fetoprotein Tumor Marker(SENDOUT) (11/30/2024 11:01 AM EDT) Alpha Fetoprotein Tumor Marker 2 0 - 9 ng/mL 12/01/2024 3:41 PM EDT [employer] Comment: INTERPRETIVE INFORMATION: Alpha Fetoprotein Tumor Marker [...] reference intervals for this test in the [facility] [employer] Laboratory Test Directory ([employer]ine[employer]). Performed By: [facility] [employer] [address] [place] [address] Regional Marketing Manager: Lalo Mortensen MD, PhD CLIA Number: [id number] Blood Venipuncture / Unknown 11/30/2024 11:01 AM EDT 11/30/2024 11:06 AM EDT Destiney Llanes APRN LAB BLOOD ORDERABLES Final Result Performing Organization Address [facility]/ZIP Co de Phone Number [employer] [address] [place] [address], [facility] [phone] * (ABNORMAL) Vitamin D, 25-Hydroxy (11/30/2024 8:20 AM EDT) Vitamin D 25-Hydroxy 22.0(L) 30 - 80 ng/mL 11/30/2024 9:48 AM EDT [facility] Blood Venipuncture / Unknown 11/30/2024 8:20 AM EDT 11/30/2024 9:08 AM EDT Timothy Bai MD LAB BLOOD ORDERABLES Final Result [facility] [address] [place] [address], [facility] [phone] * Hemoglobin A1c (11/30/2024 8:20 AM EDT) Hemoglobin A1C 4.9 4.0 - 5.6 % 11/30/2024 9:17 AM EDT [facility] Comment: Hemoglobin A1C levels are related to mean glucose during the preceding 2-3 months. Less than 7% demonstrates glycemic control in diabetic patients. Hemoglobin AlC % Suggested Diagnosis > or = 6.5 Diabetic 5.7 - 6.4 Prediabetic <5.7 Non-diabetic eAVG Glucose 93.93 70 - 126 mg/dL 11/30/2024 9:17 AM EDT [facility] Blood Venipuncture / Unknown 11/30/2024 8:20 AM EDT 11/30/2024 9:07 AM EDT us Huey Hurtado MD LAB BLOOD ORDERABLES Final Resul t [facility] [address] [phone] * ECHO COMPLETE (DOPPLER / COLOR) WO CONTRAST (11/30/2024 7:50 AM EDT) Anatomical Region Laterality Modality Heart Vascular Ultraso und 11/30/2024 7:25 AM EDT Narrative 11/30/2024 10:46 AM EDT TRANSTHORACIC ECHOCARDIOGRAPHY REPORT Demographics Patient Name: RIN JONES : 1960 Age: 64 year(s) Corporate ID Number: [id number] Gender Female Directional Bore Operator: Giovanna Rock Height: 67 inches [facility] Referring Physician: HUEY HURTADO Weight: 225 [...] 1.35 m/s E/A ratio: 0.97 m/s Volume vcuqrtoco222.99 LV length: 8.51 cm ml Volume utftfnoc18.96 ml LVOT diameter: 1.79 cm Normal sized [...] Valve TR velocity: 2.51 m/s TR gradient: 25.41640 mmHg Estimated RAP: 3 mmHg RVSP: 28.12 [...] 1960 Age: 64 year(s) Corporate ID Number: [id number] Gender Female Directional Bore Operator: Giovanna Rock Height: 67 inches [facility] Referring Physician: HUEY HURTADO Weight: 225 pounds Interpreting JESSICA RAYMOND MD BMI: 35.24 kg/m^2 Physician: Date of Service: 11/30/2024 Blood Pressure: 118/59 mmHg Room Number: 579 Type of Study: TTE procedure: ECHO COMPLETE (DOPPLER / COLOR) W OR WO CONTRAST. Patient Status: Routine IP [facility] Adequate visualization History/Tech Notes: [...] 1.35 m/s E/A ratio: 0.97 m/s Volume vnnejpuhx851.99 LV length: 8.51 cm ml Volume ntoiroxm78.96 ml LVOT diameter: 1.79 cm Normal sized [...] Valve TR velocity: 2.51 m/s TR gradient: 25.07485 mmHg Estimated RAP: 3 mmHg RVSP: 28.12 [...] in 5 days 12/05/2024 5:01 AM EDT [facility] Blood ENTIRE RIGHT UPPER ARM / Unknown Venipuncture / Unknown 11/30/2024 3:42 AM EDT 11/30/2024 4:09 AM EDT us Huey Hurtado MD MICROBIOLOGY - GENERAL ORDERABLE S Final Result [facility] [address] [phone] * Lactic Acid with reflex (11/30/2024 3:40 AM EDT) Lactic Acid Level (mmol/L) 0.9 0.5 - 2.2 mmol/L 11/30/2024 5:37 AM EDT [facility] Blood Venipuncture / Unknown 11/30/2024 3:40 AM EDT 11/30/2024 4:10 AM EDT us Huey Hurtado MD LAB BLOOD ORDERABLES Final Resul t Performing Organization Address [facility] Co de Phone Number [facility] [address] [phone] * Procalcitonin (11/30/2024 3:40 AM EDT) Procalcitonin 0.26 See Comment ng/mL 11/30/2024 5:07 AM EDT [facility] Comment: Sepsis comment <0.5 [...] ORDERABLES Final Resul t Performing Organization Address [facility] Co de Phone Number [facility] [address] [phone] * (ABNORMAL) Iron and TIBC (11/30/2024 3:40 AM EDT) Iron 63 50 - 170 ug/dL 11/30/2024 6:13 PM EDT [facility] TIBC 183(L) 250 - 435 ug/dL 11/30/2024 6:13 PM EDT [facility] % Saturation 34 % 11/30/2024 6:13 PM EDT [facility] UIBC 120 11/30/2024 6:13 PM EDT [facility] Blood Venipuncture / Unknown 11/30/2024 3:40 AM EDT 11/30/2024 4:09 AM EDT us Laura Batista MD LAB BLOOD ORDERABLES Final Res ult Performing Organization Address [facility]/ZIP Co de Phone Number [facility] [address] [phone] * aPTT (11/30/2024 3:40 AM EDT) aPTT 27.7 22.0 - 32.0 seconds 11/30/2024 4:32 AM EDT [facility] Blood Venipuncture / Unknown 11/30/2024 3:40 AM EDT 11/30/2024 4:10 AM EDT us Huey Hurtado MD LAB BLOOD ORDERABLES Final Resul t Performing Organization Address [facility]/State/ZIP Co de Phone Number [facility] [address] [phone] * (ABNORMAL) Prothrombin time/INR (11/30/2024 3:40 AM EDT) Protime 12.9(H) 9.0 - 12.0 seconds 11/30/2024 4:32 AM EDT [facility] INR 1.17(H) 0.80 - 1.10 11/30/2024 4:32 AM EDT [facility] Comment: Recommended therapeutic ranges [...] ORDERABLES Final Resul t Performing Organization Address City/[facility]/ZIP Co de Phone Number [facility] [address] [phone] * (ABNORMAL) Uric acid (11/30/2024 3:40 AM EDT) Uric Acid 11.2(H) 2.5 - 6.2 mg/dL 11/30/2024 12:18 PM EDT [facility] Blood Venipuncture / Unknown 11/30/2024 3:40 AM EDT 11/30/2024 4:09 AM EDT us Hill Boo MD LAB BLOOD ORDERABLES Final Resu lt Performing Organization Address [facility] Co de Phone Number [facility] [address] [phone] * (ABNORMAL) Lactate dehydrogenase (LDH) (11/30/2024 3:40 AM EDT) LDH 261(H) 125 - 220 U/L 11/30/2024 12:18 PM EDT [facility] Blood Venipuncture / Unknown 11/30/2024 3:40 AM EDT 11/30/2024 4:09 AM EDT us Hill Boo MD LAB BLOOD ORDERABLES Final Resu lt Performing Organization Address [facility] Co de Phone Number [facility] [address] [phone] * Iron, serum (11/30/2024 3:40 AM EDT) Iron 64 50 - 170 ug/dL 11/30/2024 8:10 AM EDT [facility] Blood Venipuncture / Unknown 11/30/2024 3:40 AM EDT 11/30/2024 4:09 AM EDT us Timothy Bai MD LAB BLOOD ORDERABLES Final Result [facility] [address] [phone] * Folate, Serum (11/30/2024 3:40 AM EDT) Folate 7.0 7.0 - 31.4 ng/mL 11/30/2024 6:08 PM EDT [facility] Blood Venipuncture / Unknown 11/30/2024 3:40 AM EDT 11/30/2024 4:09 AM EDT us Laura Batista MD LAB BLOOD ORDERABLES Final Res ult Performing Organization Address [facility]/ZIP Co de Phone Number [facility] [address] [phone] * Vitamin B12 (11/30/2024 3:40 AM EDT) Vitamin B12 678 213 - 816 pg/mL 11/30/2024 8:10 AM EDT [facility] Blood Venipuncture / Unknown 11/30/2024 3:40 AM EDT 11/30/2024 4:09 AM EDT us Timothy Bai MD LAB BLOOD ORDERABLES Final Result Performing Organization Address City/[facility]/ZIP Co de Phone Number [facility] [address] [place] [address] * EKG-SCANNED (11/30/2024) Only the most recent of3 resultswithin the time period is included. Narrative 11/30/2024 Ordered by an unspecified provider. us Default Scanning Provider SCAN ORDERS Final Result from Last 3 Months Insurance [facility] AD[facility] Advance Directives For more information, please contact: [phone] * Full Code (Latest Code Status on File) Date Activated Date Inactivated Comments 11/30/2024 2:06 AM 12/14/2024 6:30 PM Care Teams Counter Server Relationship Specialty Start Date End Date Provider, Not In System [place] PCP - General 12/14/24
--- OUTSIDE RECORDS SUMMARY | 2025-01-19 10:54 | XMS_ITS | Encounter Summary ---
Author Organization [facility] [employer] Address [address] [place] [address] Care Team Providers Care Activities Director Name Role Phone [facility] Francesca, Find-A-Doc Primary Care Provider Encounter [...] Do you speak a language other than Italian at [facility]? No 11/30/2024 Do you want [...] Office Visit [facility] Electrophysiology [address] [place] [address] Quincy Foss MD [address] [place] [address] [address] [place] [address] documented as of this encounter Visit Diagnoses Not on filedocumented in this encounter Care Teams Activities Director Relationship Specialty Start Date End Date [facility] Connection, Find-A-Doc [facility] [place] [address] PCP - General 11/30/24 12/13/24 documented as of this encounter
--- OUTSIDE RECORDS SUMMARY | 2025-01-19 10:54 | XMS_ITS | Encounter Summary ---
Author Organization Healthcare Address [address] [place] [address] Care Team Providers Care Apricot Washer Name Role Phone Larry Bedolla MD Primary Care Provider + [phone] Sary Brannon APRN Unavailable [phone] Monika Hernandez APRN Primary Care Provider [phone] Reason for Referral * Consultation (Routine) - Closed Specialty Diagnoses / Procedures Referred By Mayela may Referred To Contact Hepatology Diagnoses Bilious vomiting with nausea Anticentromere antibodies present Thrombopenia (CMS/HCC) Stage 3 hepatic fibrosis Raul Kincaid PA [address] [place] [address] Phone: tel: fax: Referral ID Status Reason Start Date Expiration Date V isits Requested Visits Authorized [id number] Closed Specialty Services Required 09/27/2021 03/29/2023 1 1 Encounter Details Date Type Department Care Team (Late st Contact Info) Description 09/27/2021 Community [facility] Community Practice [address] [place] [address] Raul Kincaid PA [address] [place] [address] Bilious vomiting with nausea (Primary Dx); [...] Description 02/22/2025 7:45 AM EDT Clinical Support [facility] [address] [place] [address] 02/22/2025 9:20 AM EDT Office Visit [facility] [address] [place] [address] Ollie Calvo MD [address] [place] [address] 02/22/2025 10:00 AM EDT Office Visit [facility] [address] [place] [address] Surgeon, 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 Scheduled Referrals Name Type Priority Associated Diagnoses [...] fibrosis documented in this encounter Care Teams Apricot Washer Relationship Specialty Start Date End Date Larry Bedolla MD [address] [place] [address] PCP - General 12/08/20 01/18/25 Monika Hernandez APRN [address] [place] [address] PCP - General 01/19/25 Sary Brannon APRN [address] [place] [address] Referring Physician Gastroenterology 01/07/25 documented as of this encounter
--- OUTSIDE RECORDS SUMMARY | 2025-01-19 10:54 | XMS_ITS | Clinical Summary ---
Author Organization [facility] [place] [address] Care Team Providers Care Spa Assistant Manager Name Role Phone Unavailable Primary Care Provider [...]
--- OUTSIDE RECORDS SUMMARY | 2025-01-19 10:54 | XMS_ITS | Encounter Summary ---
Author Organization Healthcare Address [address] [place] [address] Care Team Providers Care Manager Of Program Name Role Phone Larry Bedolla MD Primary Care Provider + [phone] Sary Brannon VICE PRESIDENT OF TALENT ACQUISITION Unavailable [phone] Monika Hernandez APRN Primary Care Provider + [phone] Encounter Details Date Type Department Care Team (Late st Contact Info) Description 01/03/2025 [facility] [address] [place] [address] Sary Brannon, VICE PRESIDENT OF TALENT ACQUISITION [address] [place], [place] [id number] Social History Tobacco Use Types Packs/Day Years [...] Description 02/22/2025 7:45 AM EDT Clinical Support [facility] [address] [place] [address] 02/22/2025 9:20 AM EDT Office Visit [facility] [address] [place] [address] Ollie Calvo MD [address] [place] [address] 02/22/2025 10:00 AM EDT Office Visit [facility] [address] [place] [address] Surgeon, 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 documented as of this encounter Visit Diagnoses Not on filedocumented in this encounter Additional Health Concerns Assessment Noted Time A fall risk assessment has been complete d for the patient 01/02/2022 1:17 PM EDT A Body Mass Index follow-up plan has been documented for the patient 11/13/2022 11:41 AM EDT documented as of this encounter Care Teams Manager Of Program Relationship Specialty Start Date End Date Larry Bedolla MD [address] [place] [address] PCP - General 12/08/20 01/18/25 Monika Hernandez APRN [address] [place] [address] PCP - General 01/19/25 Sary Brannon APRN [address] [facility] [address] [place] [address] Referring Physician Gastroenterology 01/07/25 documented as of this encounter
--- OUTSIDE RECORDS SUMMARY | 2025-01-19 10:54 | XMS_ITS | Encounter Summary ---
Author Organization [facility] Address [address] [place] [address] Care Team Providers Care Ore Digger Name Role Phone Larry Bedolla MD Primary Care Provider + [phone] Sary Brannon HUMAN GEOGRAPHY INSTRUCTOR Unavailable [phone] Reason for Referral * Transplant (Routine) - Authorized Specialty Diagnoses / Procedures Referred By Mayela may Referred To Contact Transplant Diagnoses End-stage liver disease (CMS/HCC) Sary Brannon APRN [address] [facility] [address] [place] [address] Phone: tel: fax: [facility] [address] [address] Phone: tel: fax: Referral ID Status Reason Start Date Expiration Date Visits Requested Visits Authorized [id number] Authorized Specialty Services Required 01/07/2025 07/09/[phone] Reason for Visit * Reason Comments Referral - Liver Txp Encounter Details Date Type Department Care Team (Late Contact Info) Description 01/07/2025 Telephone [facility] [place] [id number] [address] Kasey Dye [place] [id number] Referral - Liver Txp Social History Tobacco [...] New pre liver referral from Sary Brannon, dc pending financial clearance. documented in this encounter Plan of Treatment Upcoming Encounters Date Type Department Care Team (Late st Contact Info) Description 02/22/2025 7:45 AM EDT Clinical Support [facility] [address] [place] [address] 02/22/2025 9:20 AM EDT Office Visit [facility] [place] [address] [place] [address] Ollie Calvo MD [address] [place] [address] 02/22/2025 10:00 AM EDT Office Visit [facility] [place] [address] [place] [address] Surgeon, 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 Scheduled Referrals Name Type [...] Venous blood specimen / Unknown 01/03/2025 Result [facility] Provider LAB BLOOD ORDERABLES Afsaneh l Result * Creatinine, Plasma (01/03/2025) External Creatinine Blood 3.00 mg/dL Blood Venous blood specimen / Unknown 01/03/2025 Result [facility] Provider LAB BLOOD ORDERABLES Afsaneh l Result * Albumin, Plasma (01/03/2025) External Albumin 3.6 g/dL Blood Venous blood specimen / Unknown 01/03/2025 Result [facility] Provider LAB BLOOD ORDERABLES Afsaneh l Result * Albumin, Plasma (12/14/2024) External Albumin 3.2 g/dL Blood Venous blood specimen / Unknown 12/14/2024 Result [facility] Provider LAB BLOOD ORDERABLES Afsaneh l Result * Total Bilirubin, Plasma (12/14/2024) External Bilirubin Total 0.9 mg/dL Blood Venous blood specimen / Unknown 12/14/2024 Result [facility] Provider MD LAB BLOOD ORDERABLES Afsaneh l Result * Creatinine, Plasma (12/14/2024) External Creatinine Blood 2.22 mg/dL Blood Venous blood specimen / Unknown 12/14/2024 Result [facility] Provider MD LAB BLOOD ORDERABLES Afsaneh l Result * Sodium, Plasma (12/14/2024) External Sodium 145 mmol/L Blood Venous blood specimen / Unknown 12/14/2024 Result [facility] MD LAB BLOOD ORDERABLES Afsaneh l Result * Prothrombin Time/INR (11/30/2024) External Prothrombin Time (PT) 12.9 External INR - Internormal Ratio 1.17 Blood Venous blood specimen / Unknown 11/30/2024 Result [facility] MD LAB BLOOD ORDERABLES Afsaneh l Result documented [...] documented as of this encounter Care Teams Ore Digger Relationship Specialty Start Date End Date Larry Bedolla MD [address] [facility] [place] [address] PCP - General 12/08/20 01/18/25 Sary Brannon APRN [address] [place] [address] Referring Physician Gastroenterology 01/07/25 documented as of this encounter
--- OUTSIDE RECORDS SUMMARY | 2025-01-19 10:54 | XMS_ITS ---
Author Organization [facility] Address [address] [place] [address] Care Team Providers Care Extract Wringer Name Role Phone Sary Brannon APRN Unavailable [phone] Monika Hernandez APRN Primary Care Provider [phone] Transplant Episode Liver Candidate [facility] ([place], [place]) - JOSÉ LUIS Referred on 01/07/2025 Marked as Active on 01/07/2025 Liver CoordinatorJessica Simms Fax: N/A Email: N/A Care Team Name Role Phone Fax Email Jessica Simms Liver Coordinator [phone] N/A N/A Sary Brannon APRN Referring Physician [phone] N/A [place] [employer] Officer [phone] N/A N/A Edil Kiran MD Surgeon [phone] N/A Events Pre-Transplant Referred: 01/07/2025
--- OUTSIDE RECORDS SUMMARY | 2025-01-19 10:54 | XMS_ITS | Encounter Summary ---
Author Organization Healthcare Address [address] [place] [address] Care Team Providers Care Grocery Shopper Name Role Phone Larry Bedolla MD Primary Care Provider + [phone] Sary Brannon HVAC DESIGN ENGINEER Unavailable [phone] Monika Hernandez APRN Primary Care Provider [phone] Reason for Visit * Reason Comments Med Refill Encounter Details Date Type Department Care Team (Late st Contact Info) Description 04/12/2021 Refill [facility] Endocrinology [address] [place] [address] Lina Lowe, HVAC DESIGN ENGINEER [address] [facility] [address] [place] [address] Social History Tobacco Use Types [...] Description 02/22/2025 7:45 AM EDT Clinical Support [facility] Transplant Center [address] [facility] [address] [place] [address] 02/22/2025 9:20 AM EDT Office Visit [facility] [address] [place] [address] Ollie Calvo MD [address] [facility] [address] [place] [address] 02/22/2025 10:00 AM EDT Office Visit [facility] [address] [place] [address] Surgeon, 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 documented as of this encounter Visit Diagnoses Not on filedocumented in this encounter Care Teams Grocery Shopper Relationship Specialty Start Date End Date Larry Bedolla MD [address] [place] [address] PCP - General 12/08/20 01/18/25 Monika Hernandez APRN [address] [place] [address] PCP - General 01/19/25 Sary Brannon APRN [address] [place] [address] [address] [place] [address] Referring Physician Gastroenterology 01/07/25 documented as of this encounter
--- OUTSIDE RECORDS SUMMARY | 2025-01-19 10:54 | XMS_ITS | Clinical Summary ---
Author Organization Healthcare Address [address] [place] [address] Care Team Providers Care Taxicab Coordinator Name Role Phone Sary Brannon BUSINESS APPLICATIONS SPECIALIST Unavailable [phone] Monika Hernandez APRN Primary Care Provider [phone] Allergies No known active allergies Medications bisoprolol [...] 3 INJECTIONS DAILY 1 Active HYDROcodone-acetam inophen (Bitely) 10-325 MG tablet 3 Active spironolactone (Aldactone) 25 MG tablet Take 25 mg by mouth 1 (one) time each day. 3 Active furosemide (Lasix) 40 MG tablet Take by mouth 2 (two) times a day. 3 Active Insulin Lispro (HUMALOG IJ) Inject as directed. Active dapagliflozin (Farxiga) 5 MG tabletIndications: CKD (chronic kidney disease) stage 2, GFR 60-89 ml/min,Microalbumi ruperto,Coronary artery disease involving [place] heart with angina pectoris and documented spasm, [...] Encounters Date Type Department Care Team Description 01/19/2025 Telephone [facility] [address] [address] Jessica Simms Appointment (scheduling) 01/07/2025 Telephone [facility] [address] [address] Kasey Dye Referral - Liver Txp 01/03/2025 Community Orders Community Practice [address] [place] [address] Sary Brannon, ÁNGEL from Last 3 Months Immunizations Immunization Administration [...] 01/14/2023 8:18 AM EDT Plan of Treatment Upcoming Encounters Date Type Department Care Team (Late st Contact Info) Description 02/22/2025 7:45 AM EDT Clinical Support [facility] [address] [place] [address] 02/22/2025 9:20 AM EDT Office Visit [facility] [address] [place] [address] Ollie Calvo MD [address] [place] [address] 02/22/2025 10:00 AM EDT Office Visit [facility] [address] [place] [address] Surgeon, 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 Health Maintenance Due Date Last Done Comments [facility]-HIV Screening 1960 [facility]-Hepatitis C Screening 1960 [facility]-Medicare Annual Wellness (AWV) 1960 [facility]-Infant/Child/Adol SDOH Screenings 1962 Diabetes: Dental Exam 1972 [facility]- SDOH Screenings 1980 [facility]-Adult SDOH Screenings 1980 [facility]-Pap Smear 1983 [facility]-Cervical Cancer Screening 1992 [facility]-HPV/Cotest 1992 CT Colonography 2007 Colonoscopy 2007 FIT-DNA 2007 FIT 2007 FOBT 2007 Sigmoidoscopy 2007 [facility]-Colorectal Cancer Screening 2007 [facility]-Breast Cancer Screening 2012 [facility]-Diabetes: Hemoglobin A1C 07/23/2016 01/24/2016, 01/05/2015 [facility]-RSV Vaccine: 60+ Years or (1 - Risk 60-74 years 1-dose series) 2022 [facility]-Hepatitis A Vaccines (3 of 3 - Risk Twinrix secondary 3-dose series) 06/04/2022 01/02/2022, 11/21/2021 [facility]-Depression Screening 01/02/2023 01/02/2022 ZIZ-MYHUS-16 Vaccine (4 - season) 2024 05/13/2021, 04/15/2021, 11/08/2020 [facility]-Influenza Vaccine (Season Ended) 2025 05/15/2020, 04/25/2019, 05/01/2018, Additional history exists [facility]-Pneumococcal Vaccine: 50+ Years (3 of 3 - PCV20 or PCV21) 05/15/2025 05/15/2020, 07/09/2016 [facility]-DTaP,Tdap,and Td Vaccines (2 - Td or Tdap) 02/25/2031 02/25/2021 [facility]-Zoster Vaccines Completed 05/31/2021, 08/15/2020, 05/31/2020 [facility]-Obesity Intervention Completed 11/04/2022 HPV Vaccines Aged [...] Venous blood specimen / Unknown 01/03/2025 Result [facility] Provider MD LAB BLOOD ORDERABLES Afsaneh l Result * Sodium, Plasma (01/03/2025) Only the most recent of2 resultswithin the time period is included. External Sodium 144 mmol/L Blood Venous blood specimen / Unknown 01/03/2025 Result [facility] Provider LAB BLOOD ORDERABLES Afsaneh l Result * Albumin, Plasma (01/03/2025) Only the most recent of2 resultswithin the time period is included. External Albumin 3.6 g/dL Blood Venous blood specimen / Unknown 01/03/2025 Result [facility] Provider LAB BLOOD ORDERABLES Afsaneh l Result * Total Bilirubin, Plasma (12/14/2024) External Bilirubin Total 0.9 mg/dL Blood Venous blood specimen / Unknown 12/14/2024 us Historical Provider MD LAB BLOOD ORDERABLES Afsaneh l Result * Prothrombin Time/INR (11/30/2024) External Prothrombin Time (PT) 12.9 External INR - Internormal Ratio 1.17 Blood Venous blood specimen / Unknown 11/30/[address] [facility] Historical Provider MD LAB BLOOD ORDERABLES Afsaneh [...] PM EDT 01/24/2016 6:[address] [facility] Sherri Adkins APRN LAB BLOOD ORDERABLES Final Result SUNQUEST from Last 3 Months or Most Recently Relevant to Health Maintenance Insurance [facility] MEDICA[facility] [employer] MEDICARE [facility] MEDICA[facility] Care Teams Taxicab Coordinator Relationship Specialty Start Date End Date Monika Hernandez APRN [address] [facility] [place] [address] PCP - General 01/19/25 Sary Brannon APRN [address] [facility] [address] [place] [address] Referring Physician Gastroenterology 01/07/25
--- OUTSIDE RECORDS SUMMARY | 2025-01-19 10:55 | XMS_ITS | Encounter Summary ---
Author Organization Healthcare Address [address] [place] [address] Care Team Providers Care Run Lead Name Role Phone Larry Bedolla MD Primary Care Provider [phone] Sary Brannon APRN Unavailable [phone] Monika Hernandez APRN Primary Care Provider [phone] Encounter Details Date Type Department Care Team (Late st Contact Info) Description 01/21/2022 Community [facility] [address] [place] [address] Larry Bedolla MD [address] [place], [place] [id number] Central stenosis of spinal canal (Primary Dx) [...] Description 02/22/2025 7:45 AM EDT Clinical Support [facility] [address] [place] [address] 02/22/2025 9:20 AM EDT Office Visit [facility] [address] [place] [address] Ollie Calvo MD [address] [place] [address] 02/22/2025 10:00 AM EDT Office Visit [facility] [address] [place] [address] Surgeon, 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 documented as of this encounter Visit Diagnoses Diagnosis Central stenosis of spinal canal- Primary documented in this encounter Additional Health Concerns Assessment Noted Time A fall risk assessment has been complete d for the patient 01/02/2022 1:17 PM EDT documented as of this encounter Care Teams Run Lead Relationship Specialty Start Date End Date Larry Bedolla MD [address] [place] [address] PCP - General 12/08/20 01/18/25 Monika Hernandez APRN [address] [place] [address] PCP - General 01/19/25 Sary Brannon APRN [address] [facility] [address] [place] [address] Referring Physician Gastroenterology 01/07/25 documented as of this encounter
--- OUTSIDE RECORDS SUMMARY | 2025-01-19 10:55 | XMS_ITS | Encounter Summary ---
Author Organization [facility] Address [address] [place] [address] Care Team Providers Care Aviation Engineer Name Role Phone ClovisSary ÁNGEL Unavailable [phone] Monika Hernandez APRN Primary Care Provider [phone] Reason for Referral * Consultation (Routine) - Pending Review Specialty Diagnoses / Procedures Referred By Mayela may Referred To Contact Transplant Diagnoses End-stage liver disease (CMS/HCC) Edil Kiran MD [address] [address] Phone: tel: fax: [facility] [place] [address] [address] Phone: tel: fax: Referral ID Status Reason Start Date Expiration Date Visits Requested Visits Authorized [id number] Pending Review Specialty Services Required 01/19/2025 07/21/2026 1 1 Reason for Visit * Reason Comments Appointment scheduling Encounter Details Date Type Department Care Team ([facility] Contact Info) Description 01/19/2025 Telephone [facility] [place] [address] [address] [place] [address] Appointment (scheduling) Social History Tobacco Use Types Packs/Day Years [...] encounter Miscellaneous Notes * Telephone Encounter - Jessica [place]ms - 01/19/2025 9:28 AM EDT Called to schedule New Patient Pre-Liver Initial Clinic Evaluation - spoke to Ms Coronel - scheduled for 02/22/2025 at 7:30am. Notified referring office - spoke to Norma. Mailed New Patient paperwork. documented in this encounter Plan of Treatment Upcoming Encounters Date Type Department Care Team (Late st Contact Info) Description 02/22/2025 7:45 AM EDT Clinical Support [facility] [address] [place] [address] 02/22/2025 9:20 AM EDT Office Visit [facility] [address] [place] [address] Ollie Calvo MD [address] [place] [address] 02/22/2025 10:00 AM EDT Office Visit [facility] [address] [place] [address] Surgeon, 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 Scheduled Orders Name Type Priority Associated Diagnoses Orde r Schedule ABO/Rh Lab Routine End-stage liver disease (CMS/HCC) Expected: 02/22/2025 (Approximate), Expires: 07/23/2026 Alpha fetoprotein, serum Lab Routine End-stage liver disease (CMS/HCC) Expected: 02/22/2025 (Approximate), Expires: 07/23/2026 Hemogram (CBC) Lab Routine End-stage liver disease (CMS/HCC) Expected: 02/22/2025 (Approximate), Expires: 07/23/2026 Comprehensive metabolic panel Lab Routine End-stage liver disease (CMS/HCC) Expected: 02/22/2025 (Approximate), Expires: 07/23/2026 Protime-INR Lab Routine End-stage liver disease (CMS/HCC) Expected: 02/22/2025 (Approximate), Expires: 07/23/2026 Comprehensive Urine Drug Screening, Qualitative Assay, >= 27 Drug Classes Lab Routine End-stage liver disease (CMS/HCC) Expected: 02/22/2025 (Approximate), Expires: 07/23/2026 Nicotine Cotinine Metabolite Lab Routine End-stage liver disease (CMS/HCC) Expected: 02/22/2025 (Approximate), Expires: 07/23/2026 Pain Management, Quantitative Urine Drug Testing Lab Routine End-stage liver disease (CMS/HCC) Expected: 02/22/2025 (Approximate), Expires: 07/23/2026 Alcohol Urine Lab Routine End-stage liver disease (CMS/HCC) Expected: 02/22/2025 (Approximate), Expires: 07/23/2026 Hepatitis C Antibody Lab Routine End-stage liver disease (CMS/HCC) Expected: 02/22/2025 (Approximate), Expires: 07/23/2026 Hepatitis B Surface Antigen Lab Routine End-stage liver disease (CMS/HCC) Expected: 02/22/2025 (Approximate), Expires: 07/23/2026 HEPATITIS B SURFACE ANTIBODY, QUANTITATIVE Lab Routine End-stage liver disease (CMS/HCC) Expected: 02/22/2025 (Approximate), Expires: 07/23/2026 Hepatitis A Antibody IgG Lab Routine End-stage liver disease (CMS/HCC) Expected: 02/22/2025 (Approximate), Expires: 07/23/2026 Scheduled Referrals Name Type Priority Associated Diagnoses Order Schedule Initial Clinic Evaluation - Transplant Hepatology Outpatient Referral Routine End-stage liver disease (CMS/HCC) 1 Occurrences starting 01/19/2025 until 07/23/2026 documented as of this encounter Visit Diagnoses Diagnosis End-stage liver [...] documented as of this encounter Care Teams Aviation Engineer Relationship Specialty Start Date End Date Monika Hernandez APRN [address] [facility] [place] [address] PCP - General 01/19/25 Sary Brannon APRN [address]10 [facility] [address] [place] [id number] Referring Physician Gastroenterology 01/07/25 documented as of this encounter
--- OUTSIDE RECORDS SUMMARY | 2025-01-19 10:55 | XMS_ITS | Data Portability ---
Author Organization [place] [facility] [place] ADMIN Address [address] [place] [address] Care Team Providers Care Felter Tennis Balls Name Role Phone SARI MIX Primary Care Provider Assessment Encounter Date Assessment Date Assessment LastModified by Organization Details LastModified Time 05/14/2023 05/14/2023 63-year-old fema le with: 1) Hepatic fibrosis: Liver biopsy on [...] History of colonoscopy: Colonoscopy performed 01/2021 at [facility] with polypectomy (TA). 1 year repeat was [...] ABE [facility], [address], [address], [place], [address], 3 07:14:09 CMP, serum or plasma 2022 023 [facility], [address], [address], [place], [address], 3 07:14:08 PT/INR 2022 023 [facility], [address], [place], [address], 3 07:14:10 afp (alpha-feto protein) tumor marker, serum or plasma 2022 023 A[facility], [address], [address], [place], [address], 3 07:14:12 JEANA (antinuclea r antibodies) screen, serum 2022 023 A[facility], [address], [address], [place], [address], 3 07:14:14 mitochondri al Ab, serum 2022 023 [email or web address] [facility], [address], [address], [place], [address], 3 08:37:53 smooth muscle Ab, serum 2022 023 A[facility], [address], [place], [address], 3 07:14:11 igg, quantitativ e, serum 2022 023 [facility], [address], [place], [address], 3 07:14:15 hepatitis B surface Ab, quantitativ e, serum 2022 023 A[facility], [address], [place], [address], 3 07:14:13 Referral None recorded. Procedures None recorded. Surgeries None recorded. Imaging US, liver [address] ([facility]), [address], [place], [address], 15:31:08 Medication Orders Xifaxan 550 mg tablet 2022 023 [email or web address] [facility], [address] [facility] [address], [place], [place], [id number], 16:07:45 Patient TargetsNo targets recorded. Patient InstructionsNo instructions recorded. Reason for Referral None Reported. Results Created Date Observation Date Name Description Value Unit Range Abnormal Flag Note LastModifiedBy Organization Detail LastModifiedTime 05/14/2005/15/2023 COMP. METAB OLIC PANEL (14) glucose 292 mg/dL 70-99 above high normal Not Available [facility] ([facility]) [address], [place], [address], 05/16/2023 07:14:08 05/14/2005/15/2023 COMP. METAB OLIC PANEL (14) BUN 39 mg/dL 8-27 above high normal Not Available [facility] ([facility]) [address] [facility] [place], [address], 05/16/2023 07:14:08 05/14/20 23 05/15/2023 COMP. METAB OLIC PANEL (14) creatinine 1.73 mg/dL 0.57-1 .00 above high normal Not Available [facility] ([facility]) [address] [facility] [place], [address], 05/16/2023 07:14:08 05/14/20 23 05/15/2023 COMP. METAB OLIC PANEL (14) eGFR 33 mL/mi n/1.7 3 >59 below low normal Not Available [facility] ([facility]) [address] [facility] [place], [address], 05/16/2023 07:14:08 05/14/20 23 05/15/2023 COMP. METAB OLIC PANEL (14) BUN/creatini ne ratio 23 12-28 Not Available [facility] ([facility]) [address] [facility] [place], [address], 05/16/2023 07:14:08 05/14/2005/15/2023 COMP. METAB OLIC PANEL (14) sodium 143 mmol/ L 134-14 4 Not Available [facility] ([facility]) [address] [facility] [place], [address], 05/16/2023 07:14:08 05/14/20 23 05/15/2023 COMP. METAB OLIC PANEL (14) potassium 4.8 mmol/ L 3.5-5. 2 Not Available [facility] ([facility]) [address] [facility] [place], [address], 05/16/2023 07:14:08 05/14/20 23 05/15/2023 COMP. METAB OLIC PANEL (14) chloride 103 mmol/ L 96-106 Not Available [facility] ([facility]) [address] [facility] [place], [address], 05/16/2023 07:14:08 05/14/20 23 05/15/2023 COMP. METAB OLIC PANEL (14) carbon dioxide, total 28 mmol/ L 20-29 Not Available [facility] ([facility]) [address] [facility], [place], [address], 05/16/2023 07:14:08 05/14/20 23 05/15/2023 COMP. METAB OLIC PANEL (14) calcium 9.2 mg/dL 8.7-10 .3 Not Available [facility] ([facility]) [address] [facility], [place], [address], 05/16/2023 07:14:08 05/14/20 23 05/15/2023 COMP. METAB OLIC PANEL (14) protein, total 7.4 g/dL 6.0-8. 5 Not Available [facility] ([facility]) [address] [facility], [place], [address], 05/16/2023 07:14:08 05/14/20 23 05/15/2023 COMP. METAB OLIC PANEL (14) albumin 4.1 g/dL 3.9-4. 9 Not Available [facility] ([facility]) [address] [facility], [place], [address], 05/16/2023 07:14:08 05/14/20 23 05/15/2023 COMP. METAB OLIC PANEL (14) globulin, total 3.3 g/dL 1.5-4. 5 Not Available [facility] ([facility]) [address] [facility], [place], [address], 05/16/2023 07:14:08 05/14/20 23 05/15/2023 COMP. METAB OLIC PANEL (14) A/G ratio 1.2 1.2-2. 2 Not Available [facility] ([facility]) [address] [facility], [place], [address], 05/16/2023 07:14:08 05/14/20 23 05/15/2023 COMP. METAB OLIC PANEL (14) bilirubin, total 0.7 mg/dL 0.0-1. 2 Not Available [facility] ([facility]) [address] [facility], [place], [address], 05/16/2023 07:14:08 05/14/2005/15/2023 COMP. METAB OLIC PANEL (14) alkaline phosphatase 144 IU/L 44-121 above high normal Not Available [facility] ([facility]) [address] [facility], [place], [address], 05/16/2023 07:14:08 05/14/2005/15/2023 COMP. METAB OLIC PANEL (14) AST (SGOT) 39 IU/L 0-40 Not Available [facility] ([facility]) [address] [facility], [place], [address], 05/16/2023 07:14:08 05/14/2005/15/2023 COMP. METAB OLIC PANEL (14) ALT (SGPT) 27 IU/L 0-32 Not Available [facility] ([facility]) [address] [facility], [place], [address], 05/16/2023 07:14:08 05/14/2005/15/2023 CBC, PLATE LET, NO DIFFE RENTI AL WBC 3.8 x10e3 /uL 3.4-10 .8 Not Available [facility] ([facility]) [address] [facility], [place], [address], 05/16/2023 07:14:09 05/14/2005/15/2023 CBC, PLATE LET, NO DIFFE RENTI AL RBC 3.98 x10e6 /uL 3.77-5 .28 Not Available [facility] ([facility]) [address] [facility], [place], [address], 05/16/2023 07:14:09 05/14/2005/15/2023 CBC, PLATE LET, NO DIFFE RENTI AL hemoglobin 12.9 g/dL 11.1-1 5.9 Not Available [facility] ([facility]) [address] [facility], [place], [address], 05/16/2023 07:14:09 05/14/2005/15/2023 CBC, PLATE LET, NO DIFFE RENTI AL hematocrit 39.7 % 34.0-4 6.6 Not Available [facility] ([facility]) [address] [facility], [place], [address], 05/16/2023 07:14:09 05/14/2005/15/2023 CBC, PLATE LET, NO DIFFE RENTI AL MCV 100 fL 79-97 above high normal Not Available [facility] ([facility]) [address] [facility], [place], [address], 05/16/2023 07:14:09 05/14/2005/15/2023 CBC, PLATE LET, NO DIFFE RENTI AL MCH 32.4 pg 26.6-3 3.0 Not Available [facility] ([facility]) [address] [facility], [place], [address], 05/16/2023 07:14:09 05/14/2005/15/2023 CBC, PLATE LET, NO DIFFE RENTI AL MCHC 32.5 g/dL 31.5-3 5.7 Not Available [facility] ([facility]) [address] [facility], [place], [address], 05/16/2023 07:14:09 05/14/2005/15/2023 CBC, PLATE LET, NO DIFFE RENTI AL RDW 14.1 % 11.7-1 5.4 Not Available [facility] ([facility]) [address] [facility], [place], [address], 05/16/2023 07:14:09 05/14/2005/15/2023 CBC, PLATE LET, NO DIFFE RENTI AL platelets 81 x10e3 /uL 150-45 0 alert low Plate let count verif ied by exami natio n of perip heral blood smear . Not Available [facility] ([facility]) [address] [facility], [place], [address], 05/16/2023 07:14:09 05/14/2005/15/2023 CBC, PLATE LET, NO DIFFE RENTI AL hematology comments: NOTE: Verif ied by micro scopi c exami natio n. Not Available [facility] ([facility]) [address] [facility], [place], [address], 05/16/2023 07:14:09 05/14/2005/15/2023 CBC, PLATE LET, NO DIFFE RENTI AL NRBC INSTRUCTOR [employer] Not Available [facility] ([facility]) [address] [facility], [place], [address], 05/16/2023 07:14:09 05/14/2005/15/2023 PROTH ROMBI N TIME [...] range 2.5 - 3.5 Not Available [facility] ([facility]) [address] [facility], [place], [address], 05/16/2023 07:14:10 05/14/2005/15/2023 PROTH ROMBI N TIME (PT), SERIA L prothrombin time 11.9 sec 9.1-12 .0 Not Available [facility] ([facility]) [address] [facility], [place], [address], 05/16/2023 07:14:10 05/14/2005/15/2023 PROTH ROMBI N TIME (PT), SERIA L pdf . Not Available [facility] ([facility]) [address] [facility], [place], [address], 05/16/2023 07:14:10 05/14/2005/15/2023 ANTI- AIXA H MUSCL [...] bilia ry cirrh osis. Not Available [facility] ([facility]) [address] [facility], [place], [address], 05/16/2023 07:14:11 05/14/2005/15/2023 ANTI- AIXA H MUSCL E/TAHIR OCHON D. mitochondria l (M2) antibody <20.0 units 0.0-20 .0 Negat marnie 0.0 - 20.0 Equiv ocal 20.1 - 24.9 Posit marnie >24.9 Mitoc hondr ial (M2) Antib odies are found in 90-96 % of patie nts with prima ry bilia ry cirrh osis. Not Available [facility] ([facility]) [address] [facility], [place], [address], 05/16/2023 07:14:11 05/14/2005/15/2023 AFP, SERUM , TUMOR MARKE R AFP, serum, tumor marker 3.0 NG/mL 0.0-9. 2 Jeimy Diagn ostic s Elect jeimy milum inesc ence Immun oassa y (ECLI A) Value s obtai esa with diffe rent assay metho ds or kits canno t be used inter starks eably . Resul ts canno t be inter prete d as absol burns paiute evide nce of the prese nce or absen ce of claudette [place] se. This test is not inter preta ble in pregn ant femal es. Not Available [facility] ([facility]) [address] [facility], [place], [address], 05/16/2023 07:14:12 05/14/2005/15/2023 HEPAT ITIS B SURF AB QUANT hepatitis B surf Ab quant <3.1 mIU/m L immuni ty>9.9 below low normal Statu s of Immun ity Anti- HBs Level ----- ----- ----- --- ----- ----- ---- Incon siste nt with Immun ity 0.0 - 9.9 Consi stent with Immun ity >9.9 Not Available [facility] ([facility]) [address] [facility], [place], [address], 05/16/2023 07:14:13 05/14/2005/15/2023 JEANA W/REF KISHOR IF POSIT MARNIE JEANA direct POSITI VE negati ve abnormal Not Available [facility] ([facility]) [address] [place], [address], 05/16/2023 07:14:14 05/14/2005/15/2023 JEANA W/REF KISHOR IF POSIT MARNIE anti-DNA (ds) Ab qn <1 IU/mL 0-9 Negat marnie <5 Equiv ocal 5 - 9 Posit marnie >9 Not Available [facility] ([facility]) [address] [place], [address], 05/16/2023 07:14:14 05/14/2005/15/2023 JEANA W/REF KISHOR IF POSIT MARNIE property technician antibodies <0.2 ai 0.0-0. 9 Not Available [facility] ([facility]) [address] [place], [address], 05/16/2023 07:14:14 05/14/2005/15/2023 JEANA W/REF KISHOR IF POSIT MARNIE perez antibodies <0.2 ai 0.0-0. 9 Not Available [facility] ([facility]) [address] [place], [address], 05/16/2023 07:14:14 05/14/2005/15/2023 JEANA W/REF KISHOR IF POSIT MARNIE antisclerode rma-70 antibodies 0.3 ai 0.0-0. 9 Not Available [facility] ([facility]) [address] [place], [address], 05/16/2023 07:14:14 05/14/2005/15/2023 JEANA W/REF KISHOR IF POSIT MARNIE sjogren's anti-ss-A <0.2 ai 0.0-0. 9 Not Available [facility] ([facility]) [address] [place], [address], 05/16/2023 07:14:14 05/14/2005/15/2023 JEANA W/REF KISHOR IF POSIT MARNIE sjogren's anti-ss-B <0.2 ai 0.0-0. 9 Not Available [facility] ([facility]) [address] [place], [address], 05/16/2023 07:14:14 05/14/2005/15/2023 JEANA W/REF KISHOR IF POSIT MARNIE antichromati n antibodies <0.2 ai 0.0-0. 9 Not Available [facility] ([facility]) [address] [place], [address], 05/16/2023 07:14:14 05/14/2005/15/2023 JEANA W/REF KISHOR IF POSIT MARNIE anti-trisha-1 <0.2 ai 0.0-0. 9 Not Available [facility] ([facility]) [address] [place], [address], 05/16/2023 07:14:14 05/14/2005/15/2023 JEANA W/REF KISHOR IF POSIT MARNIE anti-centrom ere B antibodies 2.7 ai 0.0-0. 9 above high normal Not Available [facility] ([facility]) [address] [facility], [place], [address], 05/16/2023 07:14:14 05/14/2005/16/2023 JEANA W/REF KISHOR IF POSIT MARNIE complement C3, serum 109 mg/dL 82-167 Not Available [facility] ([facility]) [address] [facility], [place], [address], 05/16/2023 07:14:14 05/14/2005/16/2023 JAENA W/REF KISHOR IF POSIT MARNIE complement C4, serum 20 mg/dL 12-38 Not Available [facility] ([facility]) [address] [facility], [place], [address], 05/16/2023 07:14:14 05/14/2005/15/2023 IMMUN OGLOB ULIN G, QN, SERUM immunoglobul in g, qn, serum 1562 mg/dL 586-16 02 Not Available [facility] ([facility]) [address] [facility], [place], [address], 05/16/2023 07:14:15 06/06/2006/06/2023 US, liver No observ ation record ed. [facility] [address], [place], [address], 06/13/2023 12:55:07 Result Notes None recorded. Problems Name Problem SNOMED Code Status Onset Date Resolution Date Notes Provider Name and Address Organization Details Recorded Time Stage 3 hepatic fibrosis 8647888439127 9109 Active 2022 Raul Kincaid PA-C [address], [place], [address] , [facility] - [place] - [place] [facility] [place] 04/13/202 3 08:26:45 Anticentro mere antibody pattern 290799100 Active 2022 Raul Kincaid PA-C [address], [place], [place], [address] [place] [address] , [facility] & [place] 3 08:27:15 Metabolic dysfunctio n-associat ed steatohepa titis 918301281 Active 2022 Raul Kincaid PA-C [address], [place] [address] , [facility] & [place] 3 08:28:41 Hepatic encephalop athy 40149884 Active 2022 Raul Kincaid PA-C [address], [place] [address] , [facility] & [place] 3 10:58:50 Anti-nucle ar factor detected 555787316 Active 2022 Raul Kincaid PA-C [address], [place] [address] , [facility] & [place] 3 16:09:02 Problem Notes None recorded. Medical [...] Address Organization Details Last Updated DateTime 3 69933.9 4 g 97.4 [degF] 32.6 kg/m2 167.64 cm 84 /min 91 /min 98 % 98 % 131 mm[Hg] 72 mm[Hg] Luz Maria Pike [facility] & [place] 10:32:47 Social History Question Answer Notes LastModified by Organizat ion Details LastModified Time Tobacco Smoking Status Never Smoker Luz Maria Pike [facility] [place], [facility] & [place] 05/14/2023 10:31:56 What Is Your Level Of Caffeine Consumption? Moderate [email or web address] Information not available 05/14/2023 Sex: Unknown Functional Status Question Answer Note LastModified by Organizat ion Details LastModified Time Do you use any illicit or recreational drugs? No [email or web address] Information not available 05/14/2023 Do you or have you ever used any other forms of tobacco or nicotine? No [email or web address] Information not available 05/14/2023 What is your level of alcohol consumption? Occasional [email or web address] Information not available 05/14/2023 Mental Status None [...] SNOMED-CT Code Diagnosis ICD10 Code Diagnosis Note [id number] Raul Kincaid PA-C [facility] [address] [address] 05/14/2023 10:00:22 05/14/2023 11:33:43 Stage 3 hepatic fibrosis 0621513715 [id number] K74.02 Hepatic encephalopathy 36855014 K76.82 History of polyp of colon 142663457 Z86.010 Anti-nucle ar factor detected 793347358 R76.8 Anticentro mere antibody pattern 158829584 R76.8 Health Concerns Section Related Observation LastModified by Organization Detai ls LastModified Time None Recorded Concern Status LastModified by Organization Details LastModified Time None Recorded Advance Directives Directive None Recorded Payers Insurance Date Sequence Insurance Name Policy Number Policy Deng Covered Member ID Deng Member ID Guarantor Name 02/14/2024 1 [employer] (MEDICARE REPLACEMENT/A DVANTAGE - PPO) Mary Coronel [id number] Mary Coronel 02/14/2024 2 [employer] [facility] (MEDICARE REPLACEMENT/A DVANTAGE - HMO) Mary Coronel [id number] Mary Coronel Notes Date Note Type Note [...] last appointment for colonoscopy. Raul Kincaid PA-C [address], [place], [address], [facility] [place] 05/14/2023 16:14:59 OBGyn Episode No OBEpisode recorded.
== END 2025-01-17 23:59 | disposition home or self-care (01) ==
LOC: LAB.DROPOF 01-19 10:34
PROVIDERS: PCP Family Medicine; Visit Provider Family Medicine
DX: E10.9 Type 1 diabetes mellitus without complications (principal)
CPT/HCPCS: 80053; 82043; 82570; 84436; 84443; 84479; 85007; 85025; 85027

== ENCOUNTER 2025-01-31 08:17 | Outpatient (CLI) | payer MEDICARE, MEDICAID, SELFPAY ==
--- OUTSIDE RECORDS SUMMARY | 2018-11-16 06:00 | XMS_ITS | Continuity of Care Document ---
Author Organization [facility] Address [address] [place] [phone] Phone Care Team Providers Care Lock Setter Name Role Phone Dane Pink MD Unavailable [...] Provider Providers Copied on Encounter Connor [place] [facility], [address] [place] [address], [id number], tel:[phone] JENNIFER Torres [place] No Information 9 Apryl Vela. [address] [place] [address], [id number] , . tel:[phone] OFFICE/OUTPA TIENT VISIT, EST Connor [place] [facility], [address] [place] [address], [address] [place] [address], tel:[phone] [place] inflammation ck OS (chief complaint) Iritis, recurrent, left eye 9 Apryl Vela. [address] [place] [address], [address] [place] [address] , . tel:[phone] Referring Provider: Self Referred Jose C Connor [place] [facility], [address] [place] [address], [id number], tel:[phone] JENNIFER Torres [place] Anterior Seg ck (chief complaint) Iritis, recurrent, left eye 9 Apryl Vela. [address] [place] [address], [id number] , . tel:[phone] Referring Provider: Maria Teresa Santos, [employer] [address] [place] [address], [facility]. tel:[phone] Family History Family Member Type Diagnosis Age At Onset Problem (finding) Family history of Diabe reynold mellitus Problem (finding) Family history of Cardi ovascular disease Problem (finding) Family history of glauc haroon Payers Payer name Insurance type Covered alliance party ID Authoriza tion(s) Medicare [facility] [id number] Social History Type Description Quantity Date Captured [...]
--- OUTSIDE RECORDS SUMMARY | 2024-11-30 01:43 | XMS_ITS | Encounter Summary ---
Author Organization [employer] ([place], [place], [place], [place]) Address [address] [place] [address] Care Team Providers Care Refiner Operator Name Role Phone [facility], Find-A-Doc Primary Care Provider Provider, Not In System Primary Care Provider Un available Reason for Visit * Auth/Cert (Routine) Specialty Diagnoses / Procedures Referred By Mayela t Referred To Contact Diagnoses Anasarca ACUTE RENAL FAILURE [address] Medical Telemetry [address] [place] [address] Phone: tel: fax: [address] Telemetry [address] [place] [address] Phone: tel: fax: Referral ID Status Reason Start Date Expiration Date Visits Re quested Visits Authorized [id number] 1 1 Encounter Details Date Type Department Care Team (Late st Contact Info) Description 11/30/2024 1:43 AM EDT - 12/14/2024 5:30 PM EDT Hospital Encounter [address] Medical Telemetry [address] [place] [address] Albert Garcia MD [address] [place] [address] Timothy Bai MD [address] [address] Mary Carmen Mcfadden MD [address] [id number] Venkatesh Stephen MD [address] [id number] David Coffman PA-C 1498 [place], [place] [id number] Huey Hurtado MD [address] [facility] [address] [place] [address] Keren (Primary Dx); Anasarca Discharge Disposition: Home [...] Do you speak a language other than Yor[facility] at [facility]? No 11/30/2024 Do you want help with school or training? For example, starting or completing job training or getting a high school diploma, GED or equivalent. No 11/30/2024 Physical Activity Answer Date Recorded Number of minutes of exercise per week 0 11/30/2024 Self Management Answer Date Recorded Because of a physical, [...] you used [place] legal drugs? Never 11/30/2024 Mental Health Answer Date Recorded Calculation of above two rows 0 Comments No Sex and Gender Information Value [...] PA-C - 12/14/2024 12:42 PM EDT [facility] Discharge Summary Patient Name: Mary Coronel : 1960 Date of Admission: 11/30/2024 Date of Discharge: 12/14/2024 Primary Care Physician: Not In System Provider Hospital Course Medical Examiner(s): Discharge Diagnosis: Anasarca Cirrhosis Paroxysmal atrial fibrillation/nonsustained [...] diabetes, CKD, CAD, arthritis. Patient presented to [facility] with swollen abdomen, abdominal discomfort and bilateral lower extremity pitting edema.Patient's BUN/creatinine elevated, and patient subsequently transferred to [facility] for hepatorenal syndrome evaluation. Admits to [...] days. Patient's niece forced patient to visit [facility] emergency room today she really loves [...] a bone marrow biopsy which was unremarkable. [place] that she had anemia of chronic disease [...] Your Medications These medications were sent to [facility] at [address] [address] amiodarone 200 MG tablet ergocalciferol 1,250 mcg (50,000 unit) capsule lactulose 10 gram/15 mL solution pantoprazole 40 MG tablet rifAXIMin 550 mg These medications were sent to [place] [id number] [address] metOLazone 2.5 MG tablet tamsulosin 0.4 mg [...] Contact information for follow-up [facility] [address] [facility] [address] Next Steps: Go in 2 week(s) Instructions: Nephrology follow up 12/30/24 @8:45am Follow up with NAL in 1-2 weeks with renal function panel Primary care provider (PCP) Next Steps: Follow up Monika Hernandez APRN [facility] Primary Care [address] [place] [address] Next Steps: Go in 1 week(s) Instructions: PCP follow up 12/22/24 @3:00pm Time Spent on Discharge: I spent 35 minutes in wbfo-ex-smgb time with the patient and nursing staffconcerning [...] by: Brad Coffman PA-C 12/14/2024, 12:42 PM [facility] * Mary Carmen Mcfadden MD - [...] diabetes, CKD, CAD, arthritis. Patient presented to [facility] with swollen abdomen, abdominal discomfort and bilateral lower extremity pitting edema.Patient's BUN/creatinine elevated, and patient subsequently transferred to [facility] for hepatorenal syndrome evaluation. Admits to [...] days. Patient's niece forced patient to visit [facility] emergency room today she really loves [...] Your Medications These medications were sent to [facility] at [address] [address] amiodarone 200 MG tablet amoxicillin-clavulanate 500-125 mg [...] to 2-week Nephrology 1 to 2-week Disposition care home facility Time Spent: 45 min Electronically signed [...] and dry Labs: Recent Labs Lab(s) Units 12/14/2425312/13/2431412/12/24 034 WBC K/??L 1.4* 1.4* 1.4* HGB GM/DL 7.6* 7.4* 7.3* PLT K/CU MM 51* 52* 43* Recent Labs Lab(s) Units 12/14/2425312/13/2431412/12/2434612/11/24 0339 12/10/24 0953 NA meq/L 145 147* [...] renal function - No emergent need of DYNAMITE RECLAIMER - Monitor H/H and transfuse for Hgb less than 7.0 Follow up with NAL in 1-2 weeks with renal function panel Hema Cervantes MD 12/14/24 12:15 PM * KENNEY Zaragoza - 12/14/2024 12:17 PM EDTSumlacyy: Case Management DCP - Home with Home [...] additional home health needs. Patient/family provided with [facility] approved choice list and Patient choice letter along with Quality data link to access Medicare.gov Care Compare website to review potential post-acute providers. Choice provided to patient/family, and patient preferences received and referral(s) submitted to requested providers. Referral(s) submitted to: - azalea Morales, - accepted and will f/u w/patient - declined - declined KENNEY Zaragoza * Jayde Hansen, SHILA - 12/14/2024 10:14 AM EDT Images from [...] Destiney Llanes APRN 550 mg at 12/13/24 09 sodium chloride 0.9 % infusion 20 mL/hr intravenous Once Denilson Hodgson DO sodium chloride flush 10 mL 10 mL intravenous PRN Huey Hurtado MD spironolactone (ALDACTONE) tablet 12.5 mg 12.5 mg oral Daily Hill Boo MD 12.5 mg at 12/13/24 09 tamsulosin (FLOMAX) capsule 0.4 mg 0.4 mg [...] Hematology/oncology following. Acute hypoxemic/hypercapnic respiratory failure - [place] to be due to pulmonary edema from [...] discharge disposition (home, SNF/Rehab, etc): TBD Signed: rBad Coffman PA-C [facility] Hospitalist * Rea Bishop RD - 12/13/2024 3:[address] ADIME [...] intakes reported. 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 Requested chicken noodle soup for lunch. Agreeable to ONS TID. Past Medical/Surgical History: Past Medical History: Diagnosis Date Cirrhosis, non-alcoholic (HCC) Diabetes mellitus (HCC) Hypertension Past Surgical History: Procedure Laterality Date ESOPHAGOGASTRODUODENOSCOPY (EGD),REMOVAL FOREIGN BODY N/A 12/01/2024 Procedure: EGD, WITH FOREIGN BODY REMOVAL; Surgeon: Scott Daley MD; Location: 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 She initially presented to [facility] with swollen abdomen, abdominal discomfort, and bilateral lower extremity pain. Her creatinine was elevated and as a result, she was transferred to [facility] for he patorenal syndrome. Upon arrival here, [...] ABG 7.28, pCO2 51, pO2 157 BiPAP /. Patient refused higher pressure Plan for paracentesis, [...] BODY REMOVAL; Surgeon: Scott Daley MD; Location: [facility]; Service: Gastroenterology; Laterality: N/A; Allergies: No [...] POC-GLUCOSE 127 (H) 70 - 110 mg/dL [employer] Room Attendant [id number] Glucose, Nova Meter Status: Abnormal Collection Time: 12/13/24 11:15 AM Result Value Ref Range POC-GLUCOSE 221 (H) 70 - 110 mg/dL [employer] Room Attendant [id number] Glucose, Nova Meter Status: Abnormal Collection Time: 12/13/24 4:24 PM Result Value Ref Range POC-GLUCOSE 156 (H) 70 - 110 mg/dL [employer] Room Attendant [id number] Glucose, Nova Meter Status: Abnormal Collection Time: 12/13/24 8:20 PM Result Value Ref Range POC-GLUCOSE 186 (H) 70 - 110 mg/dL [employer] Room Attendant [id number] Radiology Radiology Results (last day) No results found for the last 24 hours. Microbiology: Microbiology Results (last 7 days) Procedure Component Value Units Date/Time Fungus Culture W/ROSA MARIA Or Nimisha Ink [[id number]] Collected: 11/30/241602 Order Status: Completed Specimen: Peritoneal Fluid from Body Fluid Updated: 12/07/24 170 Result No fungus isolated at 1 week. ROSA MARIA Prep No fungal elements seen Narrative: Specimen Description: peritoneal fluid AFB Culture And Stain [[id number]] Collected: 11/30/241602 Order Status: Completed Specimen: Peritoneal [...] to continue with albumin/diuretics no indication for DYNAMITE RECLAIMER No significant pleural effusion for thoracentesis If needed repeat chest x-ray. Otherwise continue diuresis Pulmonary will sign off. Please call for any issues Case discussed during round. I have personally evaluated the patient and performed a anga-qg-qbwe diagnostic evaluation on this patient; I have reviewed history, performed physical examination, reviewed laboratory studies. , andreviewed images independent of radiologist. I have actively directed the medical care, formulated assessemnt and plan of care. Patient requires a high complexity of decision making for assessment. Voice line fisher technology ([employer]) is used for dictation of this note and sound-alike words might be erroneously placed despite reviewing the note for accuracy.Errors in dictation may reflect use of voice recognition software and not all errors in line fisher may have been detectedprior to signing * [...] renal function - No emergent need of DYNAMITE RECLAIMER - Monitor H/H and transfuse for Hgb [...] Love PT - 12/15/2024 9:54 AM CDT IAlberto PT, DPT, reviewed the notes, assessments, and/or [...] admitted on: 11/30/2024 1:43 AM. presented to [facility] with swollen abdomen, abdominal discomfort and bilateral lower extremity pitting edema. Patient's BUN/creatinine elevated, and patient subsequently transferred to [facility] for hepatorenal syndrome evaluation. Admits to [...] mg oral BID 2 mg at 12/12/24 2144 ergocalciferol 50,000 Units oral Q7 Days 50,000 Units at 12/07/24 1446 gabapentin 100 mg oral TID 100 mg at 12/12/242143 insulin lispro 0-18 Units subcutaneous 4x Daily AC 6 Units at 12/12/244 lactulose 10 g oral BID 10 g [...] 4 mg 4 mg intravenous Q8H PRN Heuy Hurtado MD 4 mg at 12/08/24 1140 [...] tablet 12.5 mg 12.5 mg oral Daily Alejandre MD Rajeev 12.5 mg at 12/12/24 0840 tamsulosin (FLOMAX) [...] Culture And Stain AFB Culture And Stain [facility] Non-Press Operator Assistant Cytology [facility] Non-Press Operator Assistant Cytology DIFFERENTIAL, BODY FLUID DIFFERENTIAL, BODY FLUID Body Fluid/CSF - Path Review () Body Fluid/CSF - Path Review () [facility] BONE MARROW SMEAR, ASPIRATION, AND STAIN [facility] BONE MARROW SMEAR, ASPIRATION, AND [...] BODY REMOVAL; Surgeon: Scott Daley MD; Location: [facility]; Service: Gastroenterology; Laterality: N/A; Allergies: No [...] Normal range of motion. Integumentary: Warm, Dry, [place]. Neurologic: No obvious focal deficit Psychiatric: Cooperative, Appropriate mood & affect. Labs, Imaging, and Other Studies: Echo Results (last 7 days) Procedure Component Value Units Date/Time ECHO COMPLETE (DOPPLER / COLOR) W OR WO CONTRAST [[id number]] Collected: 11/30/24724 Order Status: Completed Updated: 11/30/24 1046 Narrative: TRANSTHORACIC ECHOCARDIOGRAPHY REPORT Demographics Patient Name: RIN JONES : 1960 Age: 64 year(s) Corporate ID Number: [id number] Gender Female Manager Code: Giovanna Rock Height: 67 inches [facility] Referring Physician: HUEY HURTADO Weight: 225 pounds [...] 1.35 m/s E/A ratio: 0.97 m/s Volume brfivltcf932.99 LV length: 8.51 cm ml Volume izdchwqk03.96 ml LVOT diameter: 1.79 cm Normal sized [...] Valve TR velocity: 2.51 m/s TR gradient: 25.88916 mmHg Estimated RAP: 3 mmHg RVSP: 28.12 [...] (DOPPLER / COLOR) W OR WO CONTRAST [[id number]] Collected: 11/30/2425 Order Status: Completed Updated: 11/30/24 1046 Narrative: TRANSTHORACIC ECHOCARDIOGRAPHY REPORT Demographics Patient Name: RIN JONES : 1960 Age: 64 year(s) Corporate ID Number: [id number] Gender Female Manager Code: Giovanna Rock Height: 67 inches [facility] Referring Physician: HUEY HURTADO Weight: 225 pounds [...] 1.35 m/s E/A ratio: 0.97 m/s Volume vpjjppsez514.99 LV length: 8.51 cm ml Volume hufiabql39.96 ml LVOT diameter: 1.79 cm Normal sized [...] Valve TR velocity: 2.51 m/s TR gradient: 25.83231 mmHg Estimated RAP: 3 mmHg RVSP: 28.12 [...] imaging. Assessment and Plan: *Paroxysmal Atrial Fib [id number] of 3 to 4 also have some [...] Patient cannot take anticoagulation for A-fib despite [id number] because of multiple issue including GI bleeding [...] 12/13/2024 8:25 AM EDTSummary: MANGO Updates - [facility] Pending Discharge Plan Progress Note Case Management received call from Vesna Gibson (phone # [phone]) [facility] notes from weekend. MANGO faxed weekend notes via [employer] to Ez Gibson to fax # [phone]. Patient will require a precert if a bed is offered. Update, 12/13, 3:07 pm Patient and family's first choice[facility] due to not being able to meet and accommodate patient's clinical needs. No information regarding how. Update 3:45 pm - Per facility's admission health safety and environment manager, patient is requiring BiPaP 'too much' (17/02 per facility words), requiring a paracentesis too often, no activity tolerance, therefore patient is not rehab appropriate. MANGO asked [facility] to review referral to inquire about [...] purposes. CM has updated treatment team via [employer] chat that are signed into patient's chart on 12/13 - QUIQUE, bedside RN, bedside DYER AND WASHER, PT, and OT. Patient has other offers from the following: [facility] and [place], [place]; offered bed prior to [facility]; follow up with Rama via [facility] [place], [place] KENNEY Zaragoza * Norm Cameron MD - 12/12/2024 8:47 PM EDT EP progress note Patient Name: Mary Coronel Admission Date: 11/30/2024 Primary Care Provider: JACKIE Find-a-Doc Chief Complaint/Reason for Consult: No chief complaint on file. History of Present Illness: Mary Coronel is a 64 y.o. female, admitted on: 11/30/2024 1:43 AM. presented to [facility] with swollen abdomen, abdominal discomfort and bilateral lower extremity pitting edema. Patient's BUN/creatinine elevated, and patient subsequently transferred to [facility] for hepatorenal syndrome evaluation. Admits to [...] Daily MARIAN Hurtado MD 3 Units at 12/12/24 1609 [...] Culture And Stain AFB Culture And Stain [facility] Non-Press Operator Assistant Cytology [facility] Non-Press Operator Assistant Cytology DIFFERENTIAL, BODY FLUID DIFFERENTIAL, BODY FLUID Body Fluid/CSF - Path Review () Body Fluid/CSF - Path Review () [facility] BONE MARROW SMEAR, ASPIRATION, AND STAIN [facility] BONE MARROW SMEAR, ASPIRATION, AND [...] BODY REMOVAL; Surgeon: Scott Daley MD; Location: [facility]; Service: Gastroenterology; Laterality: N/A; Allergies: No [...] Normal range of motion. Integumentary: Warm, Dry, [place]. Neurologic: No obvious focal deficit Psychiatric: Cooperative, Appropriate mood & affect. Labs, Imaging, and Other Studies: Echo Results (last 7 days) Procedure Component Value Units Date/Time ECHO COMPLETE (DOPPLER / COLOR) W OR WO CONTRAST [[id number]] Collected: 11/30/24 2939 Order Status: Completed Updated: 11/30/24 7312 Narrative: TRANSTHORACIC ECHOCARDIOGRAPHY REPORT Demographics Patient Name: RIN JONES : 1960 Age: 64 year(s) Corporate ID Number: [id number] Gender Female Manager Code: Giovanna Rock Height: 67 inches [facility] Referring Physician: HUEY HURTADO Weight: 225 pounds Interpreting JESSICA RAYMOND MD BMI: 35.24 kg/m^2 Physician: Date of Service: 11/30/2024 Blood Pressure: 118/59 mmHg Room Number: 579 Type of Study: TTE procedure: ECHO COMPLETE (DOPPLER / COLOR) W OR WO CONTRAST. Patient Status: Routine IP [facility] Adequate visualization History/Tech Notes: Indication: shortness [...] 1.35 m/s E/A ratio: 0.97 m/s Volume ewpvxshcm826.99 LV length: 8.51 cm ml Volume hwgrllum60.96 ml LVOT diameter: 1.79 cm Normal sized [...] Valve TR velocity: 2.51 m/s TR gradient: 25.83023 mmHg Estimated RAP: 3 mmHg RVSP: 28.12 [...] including malabsorption, drug interactions, and alcoholic hepatitis. Divvyshot has become aware of sulfasalazine and sulfapyridine [...] (DOPPLER / COLOR) W OR WO CONTRAST [[id number]] Collected: 11/30/24 0725 Order Status: Completed Updated: 11/30/24 1046 Narrative: TRANSTHORACIC ECHOCARDIOGRAPHY REPORT Demographics Patient Name: RIN JONES : 1960 Age: 64 year(s) Corporate ID Number: [id number] Gender Female Manager Code: Giovanna Rock Height: 67 inches [facility] Referring Physician: HUEY HURTADO Weight: 225 pounds Interpreting JESSICA RAYMOND MD BMI: 35.24 kg/m^2 Physician: Date of Service: 11/30/2024 Blood Pressure: 118/59 mmHg Room Number: 579 Type of Study: TTE procedure: ECHO COMPLETE (DOPPLER / COLOR) W OR WO CONTRAST. Patient Status: Routine IP [facility] Adequate visualization History/Tech Notes: [...] 1.35 m/s E/A ratio: 0.97 m/s Volume jxdrloykq732.99 LV length: 8.51 cm ml Volume qnyvtbjn88.96 ml LVOT diameter: 1.79 cm Normal sized [...] Valve TR velocity: 2.51 m/s TR gradient: 25.26767 mmHg Estimated RAP: 3 mmHg RVSP: 28.12 [...] imaging. Assessment and Plan: *Paroxysmal Atrial Fib [id number] of 3 to 4 also have some [...] Patient cannot take anticoagulation for A-fib despite [id number] because of multiple issue including GI bleeding [...] renal function - No emergent need of DYNAMITE RECLAIMER - Monitor H/H and transfuse for Hgb less than 7.0 Follow up with NAL in 1-2 weeks with renal function panel Hema Cervantes MD 12/12/24 12:15 PM * David Coffman PA-C - 12/12/2024 11:24 AM EDT [facility] Progress Note Patient: Mary Coronel Subjective Chief Complaint / Reason for Follow-Up Mary Cornoel is a 64 y.o. female on hospital [...] mg oral Daily 200 mg at 12/12/24 08 atorvastatin 20 mg oral Every Night 20 [...] PRN Huey Hurtado MD 10 mg at [id number] insulin lispro (HUMALOG, ADMELOG) injection 0-18 Units [...] Hematology/oncology following. Acute hypoxemic/hypercapnic respiratory failure - [place] to be due to pulmonary edema from [...] mg oral Every Night 20 mg at 12/10/24 2105 bumetanide 2 mg oral BID 2 mg at 12/11/24 0841 ergocalciferol 50,000 Units oral Q7 Days 50,000 Units at 12/07/24 1446 gabapentin 100 mg oral TID 100 mg at 12/11/24 0842 insulin lispro 0-18 Units subcutaneous 4x Daily AC 3 Units at 12/11/24 0648 lactulose 10 g oral BID 10 g at 12/10/24 2106 metOLazone 2.5 mg oral Daily pantoprazole 40 [...] Timothy Bai MD 10 g at 12/10/24 2106 [Held by provider] melatonin tablet 3 mg [...] flush 10 mL 10 mL intravenous PRN uHey Hurtado MD spironolactone (ALDACTONE) tablet 12.5 mg [...] as needed. Pancytopenia. - Bone marrow biopsy 5/8--unremarkable. - Downtrending at this time. - Transfuse for hemoglobin less than 7. - Hematology/oncology following. Acute hypoxemic/hypercapnic respiratory failure - [place] to be due to pulmonary edema from [...] etc): TBD Signed: Brad Coffman PA-C [facility] Hospitalist * Hema Cervantes MD - [...] renal function - No emergent need of DYNAMITE RECLAIMER - Monitor H/H and transfuse for Hgb [...] BODY REMOVAL; Surgeon: Scott Daley MD; Location: [facility]; Service: Gastroenterology; Laterality: N/A; General Visit type: Treatment Approved by: Nurse Metzger Patient disposition upon entry: Patient verified by name, Patient verified by date of , Supinein bed Co-treated by: DRY PRIMER POWDER BLENDER Assisted by: neurology physician assistant Precautions Weightbearing status: No restrictions Precautions: [...] had BM and pt returned to EOB. SAFETY SPEC entered room to assist. Pt was able [...] patient's discharge summary. Electronically signed by DAWOOD Rubin/Amada - 12/10/2024 - 3:02 PM EDT * [...] deconditioning, fatigue, weakness, and impaired balance . [facility] Basic Mobility Inpatient Short Form How much [...] Love PT - 12/15/2024 9:54 AM CDT IAlberto PT, DPT, reviewed the notes, assessments, and/or procedures performed by Jayde Hansen PTA, I concur with their documentation of Mary Coronel. Electronically signed by Alberto Love, PT, DPT - 12/15/24 - 10:53 AM EST * KENNEY Zaragoza - 12/10/2024 12:34 PM EDTSummary: Case Management Discharge Planning Progress Note Discharge Plan Progress Note SW/MANGO spoke with patient's sister, Jojo Mcgill this morning via phone. Family prefers [facility] ([facility] [place] [facility]), as they live 10-20minutes away from facility. JOSE MANUEL/MANGO contacted venue coordinator via text, number provided by family, phone # [phone]. farhan [place]orga, fax # [phone]. CM sent updated referral. Patient will need precert. Family, sister Jojo will be able to transport at discharge, but will been 24 hour notice to be able to transport to facility. CM plan is SNF/rehab possible early next week pending medical readiness, and precert. Update 3:27 pm - updated PT and OT notes faxed to [facility] KENNEY Zaragoza * Hema Cervantes MD [...] renal function - No emergent need of DYNAMITE RECLAIMER - Monitor H/H and transfuse for Hgb [...] POC-GLUCOSE 162 (H) 70 - 110 mg/dL [employer] Room Attendant [id number] ABG Status: Abnormal Collection Time: 12/10/24 6:42 [...] ARTERIAL 8.5 (L) 12.0 - 18.0 g/dL [facility] COLLECTION SITE Left Radial Arterial [...] POC-GLUCOSE 195 (H) 70 - 110 mg/dL [employer] Room Attendant [id number] Glucose, Nova Meter Status: Abnormal Collection Time: 12/10/24 6:32 PM Result Value Ref Range POC-GLUCOSE 235 (H) 70 - 110 mg/dL [employer] Room Attendant [id number] Glucose, Nova Meter Status: Abnormal Collection Time: 12/10/24 7:38 PM Result Value Ref Range POC-GLUCOSE 201 (H) 70 - 110 mg/dL [employer] Room Attendant [id number] US paracentesis Narrative: ULTRASOUND-GUIDED PARACENTESIS HISTORY: Ascites. ATTENDING PHYSICIAN: Dr. Haseeb Gil PHYSICIAN CONCRETE WALL GRINDER OPERATOR: Sujit Blackman PA-C FINDINGS: After informed consent [...] Pending blood gas improvement And more awake lead case manager working discharge plan, likely dc 1-2 days pending improvement, plan for paracentesis today * Deysi Foss MD - 12/10/2024 8:13 AM EDT EP progress note Patient Name: Mary Coronel Admission Date: 11/30/2024 Primary Care Provider: [facility] Find-a-Doc Chief Complaint/Reason for Consult: No chief complaint on file. History of Present Illness: Mary Coronel is a 64 y.o. female, admitted on: 11/30/2024 1:43 AM. presented to [facility] with swollen abdomen, abdominal discomfort and bilateral lower extremity pitting edema. Patient's BUN/creatinine elevated, and patient subsequently transferred to [facility] for hepatorenal syndrome evaluation. Admits to [...] 200 mg oral Daily 200 mg at 12/09/24919 amoxicillin-clavulanate 1 tablet oral BID 1 tablet [...] Days Timothy Bai MD 50,000 Units at 12/07/241445 gabapentin (NEURONTIN) capsule 100 mg 100 mg oral TID Blanka Malagon MD 100 mg at 12/09/242108 glucagon injection 1 mg 1 mg intraMUSCULAR Q15 Min PRN Huey Hurtado MD glucose chew tab 16 g 16 g oral Q15 Min PRN Huey Hurtado MD hydrALAZINE (APRESOLINE) injection 10 mg 10 mg intravenous Q6H PRN Huey Hurtado MD 10 mg at 12/09/24 1431 insulin lispro (HUMALOG, ADMELOG) injection 0-18 Units 0-18 Units subcutaneous 4x Daily AC Huey Hurtado MD 3 Units at 12/10/24 0642 lactulose [...] Culture And Stain AFB Culture And Stain [facility] Non-Press Operator Assistant Cytology [facility] Non-Press Operator Assistant Cytology DIFFERENTIAL, BODY FLUID DIFFERENTIAL, BODY FLUID Body Fluid/CSF - Path Review () Body Fluid/CSF - Path Review () [facility] BONE MARROW SMEAR, ASPIRATION, AND STAIN [facility] BONE MARROW SMEAR, ASPIRATION, AND [...] BODY REMOVAL; Surgeon: Scott Daley MD; Location: [facility]; Service: Gastroenterology; Laterality: N/A; Allergies: No [...] Normal range of motion. Integumentary: Warm, Dry, [place]. Neurologic: No obvious focal deficit Psychiatric: Cooperative, Appropriate mood & affect. Labs, Imaging, and Other Studies: Echo Results (last 7 days) Procedure Component Value Units Date/Time ECHO COMPLETE (DOPPLER / COLOR) W OR WO CONTRAST [[id number]] Collected: 11/30/24724 Order Status: Completed Updated: 11/30/24 104 Narrative: TRANSTHORACIC ECHOCARDIOGRAPHY REPORT Demographics Patient Name: RIN JONES : 1960 Age: 64 year(s) Corporate ID Number: [id number] Gender Female Manager Code: Giovanna Rock Height: 67 inches [facility] Referring Physician: HUEY HURTADO Weight: 225 pounds Interpreting JESSICA RAYMOND MD BMI: 35.24 kg/m^2 Physician: Date of Service: 11/30/2024 Blood Pressure: 118/59 mmHg Room Number: 579 Type of Study: TTE procedure: ECHO COMPLETE (DOPPLER / COLOR) W OR WO CONTRAST. Patient Status: Routine IP [facility] History/Tech Notes: Indication: [...] 1.35 m/s E/A ratio: 0.97 m/s Volume yffheihqt265.99 LV length: 8.51 cm ml Volume wiliwlgw75.96 ml LVOT diameter: 1.79 cm Normal sized [...] Valve TR velocity: 2.51 m/s TR gradient: 25.71857 mmHg Estimated RAP: 3 mmHg RVSP: 28.12 [...] (DOPPLER / COLOR) W OR WO CONTRAST [[id number]] Collected: 11/30/24 0725 Order Status: Completed Updated: 11/30/24 1046 Narrative: TRANSTHORACIC ECHOCARDIOGRAPHY REPORT Demographics Patient Name: RIN JONES : 1960 Age: 64 year(s) Corporate ID Number: [id number] Gender Female Manager Code: Giovanna Rock Height: 67 inches [facility] Referring Physician: HUEY HURTADO Weight: 225 pounds [...] 1.35 m/s E/A ratio: 0.97 m/s Volume yqrbuotbs860.99 LV length: 8.51 cm ml Volume eylligje37.96 ml LVOT diameter: 1.79 cm Normal sized [...] Valve TR velocity: 2.51 m/s TR gradient: 25.47124 mmHg Estimated RAP: 3 mmHg RVSP: 28.12 [...] imaging. Assessment and Plan: *Paroxysmal Atrial Fib [id number] of 3 to 4 also have some [...] Patient cannot take anticoagulation for A-fib despite [id number] because of multiple issue including GI bleeding [...] history as below. She initially presented to [facility] with swollen abdomen, abdominal discomfort, and bilateral lower extremity pain. Her creatinine was elevated and as a result, she was transferred to [facility] for he patorenal syndrome. Upon arrival here, [...] ABG 7.28, pCO2 51, pO2 157 BiPAP 10/6. Patient refused higher pressure Plan for paracentesis, [...] BODY REMOVAL; Surgeon: Scott Daley MD; Location: [facility]; Service: Gastroenterology; Laterality: N/A; Allergies: No [...] ARTERIAL 8.7 (L) 12.0 - 18.0 g/dL [facility] COLLECTION SITE Left Radial Arterial Puncture Yes Blood Gas O2 Delivery Device Cannula Oxygen Flow Rate 4 Blood Gas PT Temperature C 37.0 Sen's Test Acceptable Critical Values Notification Critical Blood gas called to DAYANARA MILES . [place] [id number] and confirmed on12/09/2024 06:51 ABG Number of Draw Attempts 1 FIO2 Blood Gas Temperature Corrected Results No No Glucose, Nova Meter Status: Abnormal Collection Time: 12/09/24 11:17 AM Result Value Ref Range POC-GLUCOSE 173 (H) 70 - 110 mg/dL [employer] [facility] [id number] Glucose, Nova Meter Status: Abnormal Collection Time: 12/09/24 4:23 PM Result Value Ref Range POC-GLUCOSE 173 (H) 70 - 110 mg/dL [facility] [id number] Glucose, Nova Meter Status: Abnormal Collection Time: 12/09/24 7:30 PM Result Value Ref Range POC-GLUCOSE 158 (H) 70 - 110 mg/dL [facility] [employer] [id number] Glucose, Nova Meter Status: Abnormal Collection Time: 12/10/24 5:52 AM Result Value Ref Range POC-GLUCOSE 162 (H) 70 - 110 mg/dL [facility] [facility] [id number] Radiology Radiology Results (last day) Procedure Component Value Units Date/Time XR chest AP portable [[id number]] Collected: 12/09/24 0844 Order Status: Completed Updated: [...] Fungus Culture W/ROSA MARIA Or Nimisha Ink [[id number]] Collected: 11/30/24 1603 Order Status: Completed Specimen: Peritoneal Fluid from Body Fluid Updated: 12/07/24 1700 Result No fungus isolated at 1 week. ROSA MARIA Prep No fungal elements seen Narrative: Specimen Description: peritoneal fluid AFB Culture And Stain [[id number]] Collected: 11/30/24 1603 Order Status: Completed Specimen: Peritoneal Fluid from Body Fluid Updated: 12/07/24 1700 Result No Acid Fast Bacilli isolated at 1 week. AFB Smear No acid fast bacilli seen Narrative: Specimen Description: peritoneal fluid Anaerobic Culture [[id number]] Collected: 11/30/24 1603 Order Status: Completed Specimen: Peritoneal Fluid from Body Fluid Updated: 12/05/24 0634 Result No Anaerobic growth Narrative: Specimen Description: peritoneal fluid Blood Culture [[id number]] Collected: 11/30/24 0340 Order Status: Completed Specimen: Blood from Arm, Left Updated: 12/05/24 0501 Result No growth in 5 days Blood Culture [[id number]] Collected: 11/30/24 0342 Order Status: Completed Specimen: Blood from Arm, Right Updated: 12/05/24 0501 Result No growth in 5 days Body Fluid Culture + Gram Stain [[id number]] Collected: 11/30/24 1603 Order Status: Completed Specimen: Peritoneal Fluid from Body Fluid Updated: 12/03/24 0907 Result No growth Gram Stain Result No organisms seen No cells seen Narrative: Specimen Description: peritoneal fluid Body Fluid/CSF - Path Review () [[id number]] Collected: 11/30/24 1603 Order Status: Completed Specimen: [...] to continue with albumin/diuretics no indication for DYNAMITE RECLAIMER No significant pleural effusion for thoracentesis If needed repeat chest x-ray. Otherwise continue diuresis Pulmonary continue to follow Case discussed during round. I have personally evaluated the patient and performed a tffq-nv-bivd diagnostic evaluation on this patient; I have reviewed history, performed physical examination, reviewed laboratory studies. , andreviewed images independent of radiologist. I have actively directed the medical care, formulated assessemnt and plan of care. Patient requires a high complexity of decision making for assessment. 34 minutes critical care time was spent. Voice line fisher technology (NurseGrid) is used for dictation of this note and sound-alike words might be erroneously placed despite reviewing the note for accuracy.Errors in dictation may reflect use of voice recognition software and not all errors in line fisher may have been detectedprior to signing * Tori Kamara RN - 12/09/2024 4:00 PM EDT MD Mcfadden approved patient to go to [place] Paracentesis unmonitored. * Alvina Barragan PT - 12/09/2024 2:22 PM EDT Images [...] POC-GLUCOSE 159 (H) 70 - 110 mg/dL [facility] [facility] [id number] Glucose, Nova Meter Status: Abnormal Collection Time: 12/08/24 8:08 PM Result Value Ref Range POC-GLUCOSE 172 (H) 70 - 110 mg/dL [facility] [employer] [id number] Basic Metabolic Panel Status: Abnormal Collection Time: [...] Osmolality Calc 320.0 mOsm/kg CBC - [facility] Status: Abnormal Collection Time: 12/09/24 [...] POC-GLUCOSE 148 (H) 70 - 110 mg/dL [facility] [id number] ABG Status: Abnormal Collection Time: 12/09/24 6:37 [...] ARTERIAL 8.7 (L) 12.0 - 18.0 g/dL [facility] COLLECTION SITE Left Radial Arterial Puncture Yes Blood Gas O2 Delivery Device Cannula Oxygen Flow Rate 4 Blood Gas PT Temperature C 37.0 Sen's Test Acceptable Critical Values Notification Critical Blood gas called to DAYANARA MILES . [place] [id number] and confirmed 12/09/2024 06:51 ABG Number of Draw Attempts 1 FIO2 Blood Gas Temperature Corrected Results No No Glucose, Nova Meter Status: Abnormal Collection Time: 12/09/24 11:17 AM Result Value Ref Range POC-GLUCOSE 173 (H) 70 - 110 mg/dL [facility] [facility] [id number] XR chest AP portable Narrative: PORTABLE CHEST. [...] Pending blood gas improvement And more awake lead case manager working discharge plan * Tori Kamara [...] Ext: +++ Pedal edema , no cyanosis DIRECTOR OF PHOTOGRAPHY: Alert, No focal deficit noted grossly Psy: Cooperative Labs: Results for orders placed or performed during the hospital encounter of 11/30/24 (from the past 24 hours) Glucose, Nova Meter Status: Abnormal Collection Time: 12/08/24 10:57 AM Result Value Ref Range POC-GLUCOSE 191 (H) 70 - 110 mg/dL [facility] [facility] Att[facility] [id number] Glucose, Nova Meter Status: Abnormal Collection Time: 12/08/24 3:34 PM Result Value Ref Range POC-GLUCOSE 159 (H) 70 - 110 mg/dL [facility] [facility] Attendant [id number] Glucose, Nova Meter Status: Abnormal Collection Time: 12/08/24 8:08 PM Result Value Ref Range POC-GLUCOSE 172 (H) 70 - 110 mg/dL [facility] Att[facility] [id number] Basic Metabolic Panel Status: Abnormal Collection Time: [...] POC-GLUCOSE 148 (H) 70 - 110 mg/dL [facility] [employer] Att[facility] [id number] ABG Status: Abnormal Collection Time: 12/09/24 6:37 [...] ARTERIAL 8.7 (L) 12.0 - 18.0 g/dL [facility] COLLECTION SITE Left Radial Arterial Puncture Yes Blood Gas O2 Delivery Device Cannula Oxygen Flow Rate 4 Blood Gas PT Temperature C 37.0 Sen's Test Acceptable Critical Values Notification Critical Blood gas called to DAYANARA MILES . [place] [id number] and confirmed on12/09/2024 06:51 ABG Number of [...] Labs Lab(s) Units 12/09/24 0545 12/09/24 0338 12/08/24200712/08/24 1534 12/08/24 0608 12/08/24 0410 12/07/24 0551 [...] renal function - No emergent need of DYNAMITE RECLAIMER - Monitor H/H and transfuse for Hgb less than 7.0 Discussed with patient Follow up with [facility] in 1-2 weeks with renal function panel * KENNEY Zaragoza - 12/09/2024 8:04 AM EDTSummary: Referral Pending Discharge Plan Progress Note Family/Sister prefers [facility]. SW/CM sent referral this AM. Currently pending. [facility] [address] KENNEY Zaragoza * Blanka Malagon MD - 12/09/2024 6:30 AM EDT Images from the original note were not included. PULMONARY AND CRITICAL CARE Consult Note Date of Service: 12/09/2024 HPI: This is a 64 y.o. year old female with past medical history as below. She initially presented to [facility] with swollen abdomen, abdominal discomfort, and bilateral lower extremity pain. Her creatinine was elevated and as a result, she was transferred to [facility] for he patorenal syndrome. Upon arrival here, [...] BODY REMOVAL; Surgeon: Scott Daley MD; Location: [facility]; Service: Gastroenterology; Laterality: N/A; Allergies: No [...] ARTERIAL 8.8 (L) 12.0 - 18.0 g/dL [facility] COLLECTION SITE Right Brachial Arterial Puncture Yes Blood Gas O2 Delivery Device Cannula Oxygen Flow Rate 4 Blood Gas PT Temperature C 37.0 Sen's Test Not Applicable Critical Values Notification Critical Blood gas called to KNOWN CONDITION . Results acknowledged/read back to [id number] and confirmed on 12/08/2024 07:30 ABG Number of Draw Attempts 1 FIO2 Blood Gas Temperature Corrected Results No No Glucose, Nova Meter Status: Abnormal Collection Time: 12/08/24 10:57 AM Result Value Ref Range POC-GLUCOSE 191 (H) 70 - 110 mg/dL [facility] [facility] Att[facility] [id number] Glucose, Nova Meter Status: Abnormal Collection Time: 12/08/24 3:34 PM Result Value Ref Range POC-GLUCOSE 159 (H) 70 - 110 mg/dL [facility] [facility] Att[facility] [id number] Glucose, Nova Meter Status: Abnormal Collection Time: 12/08/24 8:08 PM Result Value Ref Range POC-GLUCOSE 172 (H) 70 - 110 mg/dL [facility] Att[facility] [id number] Basic Metabolic Panel Status: Abnormal Collection Time: [...] Osmolality Calc 320.0 mOsm/kg CBC - [facility] Status: Abnormal Collection Time: 12/09/24 [...] POC-GLUCOSE 148 (H) 70 - 110 mg/dL [facility] [id number] Radiology Radiology Results (last day) No results found for the last 24 hours. Microbiology: Microbiology Results (last 7 days) Procedure Component Value Units Date/Time Fungus Culture W/ROSA MARIA Or Nimisha Ink [[id number]] Collected: 11/30/24 160 Order Status: Completed Specimen: Peritoneal Fluid from Body Fluid Updated: 12/07/24 170 Result No fungus isolated at 1 week. ROSA MARIA Prep No fungal elements seen Narrative: Specimen Description: peritoneal fluid AFB Culture And Stain [[id number]] Collected: 11/30/24 160 Order Status: Completed Specimen: Peritoneal Fluid from Body Fluid Updated: 12/07/24 1700 Result No Acid Fast Bacilli isolated at 1 week. AFB Smear No acid fast bacilli seen Narrative: Specimen Description: peritoneal fluid Anaerobic Culture [[id number]] Collected: 11/30/24 1603 Order Status: Completed Specimen: Peritoneal Fluid from Body Fluid Updated: 12/05/24 0634 Result No Anaerobic growth Narrative: Specimen Description: peritoneal fluid Blood Culture [[id number]] Collected: 11/30/24 0340 Order Status: Completed Specimen: Blood from Arm, Left Updated: 12/05/24 0501 Result No growth in 5 days Blood Culture [[id number]] Collected: 11/30/24 0342 Order Status: Completed Specimen: Blood from Arm, Right Updated: 12/05/24 0501 Result No growth in 5 days Body Fluid Culture + Gram Stain [[id number]] Collected: 11/30/24 1603 Order Status: Completed Specimen: Peritoneal Fluid from Body Fluid Updated: 12/03/24 0907 Result No growth Gram Stain Result No organisms seen No cells seen Narrative: Specimen Description: peritoneal fluid Body Fluid/CSF - Path Review () [[id number]] Collected: 11/30/24 160 Order Status: Completed Specimen: [...] to continue with albumin/diuretics no indication for DYNAMITE RECLAIMER No significant pleural effusion for thoracentesis If needed repeat chest x-ray. Otherwise continue diuresis Pulmonary twill follow . If ABG not improving ,or worsening mental status recommended ICU Case discussed during round. I have personally evaluated the patient and performed a kmlb-gy-nmic diagnostic evaluation on this patient; I have reviewed history, performed physical examination, reviewed laboratory studies. , andreviewed images independent of radiologist. I have actively directed the medical care, formulated assessemnt and plan of care. Patient requires a high complexity of decision making for assessment. 34 minutes critical care time was spent. Voice line fisher technology (NurseGrid) is used for dictation of this note and sound-alike words might be erroneously placed despite reviewing the note for accuracy.Errors in dictation may reflect use of voice recognition software and not all errors in line fisher may have been detectedprior to signing * [...] Readiness for SNF - Bed Offer with [facility] Discharge Plan Progress Note JOSE MANUEL/MANGO updated Rama T with [facility] regarding patient's ICU transfer cancellation.CM to follow up with Rama on 12/09 with updated PT/OT notes, progress notes of patients care, BiPaP/RT plan. [facility] is still [facility] bed for patient. Precert will be needed, [facility] JOSE MANUEL/MANGO has attempted to call patient's sister, Jojo Dominguez x3 times, at # listed, , however, CM is experiencing phone issues and unable to call out. CM has informed bedside RN and [facility] via [facility] Chat. KENNEY Zaragoza * KENNEY Zaragoza - 12/08/2024 1:29 PM EDTSummary: CM Assessment Care Coordination Initial Assessment Patient's readmit score is low at 12%. CM plan was to DC home/independent at baseline or with family/sister assistance. Sister, Jojo, stated she cannot care for patient if patient was to come homewith her, and patient needed rehab. CM sent referrals, patient had bed offers, [facility] offered bed first and [...] (P) Independent Current Lines, Tubes: (P) 3L/min [place] Special/Community Services: (P) Transport, discharge, Home, assistance Transition Needs Expected Discharge Date: Off Track MINNIE LOWERY - 12/10-12/12 Home or Post Acute Services Needed: (P) Post acute facilities (Rehab/SNF/etc) Does the patient have the ability to fill and receive their discharge medications: (P) Yes Discharge plan discussed: (P) The discharge plan was discussed with patient appeals representative. Discharge Barriers: (P) Test(s) Pending, Activity Type of Assistive Devices Needed for Discharge: (P) None Patient Discharge Goal: (P) Inpatient Rehab Facility, [facility] Mandated Reporting: (P) Not applicable PT/OT/MATERIAL SPREADER Recommendations PT Recommendations: Pending Hospital Stay OT Recommendations: Pending Hospital Stay MATERIAL SPREADER Recommendations: NA 12/08/24 1327 Home Environment Type [...] Assistive Devices Walker;Commode Current Lines, Tubes 3L/min [place] Special/Community Services Transport, discharge;Home, assistance Transition Needs Home or Post Acute Services Post acute facilities (Rehab/SNF/etc) Type of Post Acute Facility Services care home;Rehab Does the patient have the ability to fill and receive their discharge medications? Yes Discharge Plan Discussed The discharge plan was discussed with patient appeals representative. Discharge Plan Outcome Patient/family appeals representative agrees with the discharge plan Discharge Barriers Test(s) Pending;Activity Type of Assistive Devices Needed for Discharge None Patient Discharge Goal Inpatient Rehab Facility;[facility] Mandated Reporting Not applicable KENNEY Zaragoza * Deysi Foss MD - 12/08/2024 11:29 AM EDT EP progress note Patient Name: Mary Coronel Admission Date: 11/30/2024 Primary Care Provider: JACKIE Find-a-Doc Chief Complaint/Reason for Consult: No chief complaint on file. History of Present Illness: Mary Coronel is a 64 y.o. female, admitted on: 11/30/2024 1:43 AM. presented to [facility] with swollen abdomen, abdominal discomfort and bilateral lower extremity pitting edema. Patient's BUN/creatinine elevated, and patient subsequently transferred to [facility] for hepatorenal syndrome evaluation. Admits to [...] Deysi Foss MD 200 mg at 12/08/24 0943 ammonium lactate (LAC-HYDRIN) lotion 12% topical PRN Huey Hurtado MD amoxicillin-clavulanate (AUGMENTIN) 500-125 mg per tablet 1 tablet 1 tablet oral BID Mary Carmen Mcfadden MD 1 tablet at 12/08/24 09 atorvastatin (LIPITOR) tablet 20 mg 20 mg [...] Units subcutaneous 4x Daily MARIAN Hurtado MD 6 Units at 12/08/24 1116 [...] 12.5 mg oral Daily Hill Boo MD [facility] meds No current facility-administered medications on file [...] Culture And Stain AFB Culture And Stain [facility] Non-Press Operator Assistant Cytology [facility] Non-Press Operator Assistant Cytology DIFFERENTIAL, BODY FLUID DIFFERENTIAL, BODY FLUID Body Fluid/CSF - Path Review () Body Fluid/CSF - Path Review () [facility] BONE MARROW SMEAR, ASPIRATION, AND STAIN [facility] BONE MARROW SMEAR, ASPIRATION, AND [...] BODY REMOVAL; Surgeon: Scott Daley MD; Location: [facility]; Service: Gastroenterology; Laterality: N/A; Allergies: No [...] Normal range of motion. Integumentary: Warm, Dry, [place]. Neurologic: No obvious focal deficit Psychiatric: Cooperative, Appropriate mood & affect. Labs, Imaging, and Other Studies: Echo Results (last 7 days) Procedure Component Value Units Date/Time ECHO COMPLETE (DOPPLER / COLOR) W OR WO CONTRAST [[id number]] Collected: 11/30/24 0725 Order Status: Completed Updated: 11/30/24 1046 Narrative: TRANSTHORACIC ECHOCARDIOGRAPHY REPORT Demographics Patient Name: RIN JONES : 1960 Age: 64 year(s) Corporate ID Number: [id number] Gender Female Manager Code: Giovanna Rock Height: 67 inches [facility] Referring Physician: HUEY HURTADO Weight: 225 pounds Interpreting JESSICA RAYMOND MD BMI: 35.24 kg/m^2 Physician: Date of Service: 11/30/2024 Blood Pressure: 118/59 mmHg Room Number: 579 Type of Study: TTE procedure: ECHO COMPLETE (DOPPLER / COLOR) W OR WO CONTRAST. Patient Status: Routine IP Study Location: [facility] Quality: Adequate visualization History/Tech Notes: Indication: [...] 1.35 m/s E/A ratio: 0.97 m/s Volume wacuvmjrn092.99 LV length: 8.51 cm ml Volume kbipxvdb93.96 ml LVOT diameter: 1.79 cm Normal sized [...] Valve TR velocity: 2.51 m/s TR gradient: 25.29354 mmHg Estimated RAP: 3 mmHg RVSP: 28.12 [...] (DOPPLER / COLOR) W OR WO CONTRAST [[id number]] Collected: 11/30/24724 Order Status: Completed Updated: 11/30/24 104 Narrative: TRANSTHORACIC ECHOCARDIOGRAPHY REPORT Demographics Patient Name: RIN JONES : 1960 Age: 64 year(s) Corporate ID Number: [id number] Gender Female Manager Code: Giovanna Rock Height: 67 inches [facility] Referring Physician: HUEY HURTADO Weight: 225 pounds Interpreting JESSICA RAYMOND MD BMI: 35.24 kg/m^2 Physician: Date of Service: 11/30/2024 Blood Pressure: 118/59 mmHg Room Number: 579 Type of Study: TTE procedure: ECHO COMPLETE (DOPPLER / COLOR) W OR WO CONTRAST. Patient Status: Routine IP Study Location: [facility] Quality: Adequate visualization History/Tech Notes: Indication: [...] 1.35 m/s E/A ratio: 0.97 m/s Volume zprgbmepj903.99 LV length: 8.51 cm ml Volume ujoabxip77.96 ml LVOT diameter: 1.79 cm Normal sized [...] Valve TR velocity: 2.51 m/s TR gradient: 25.38993 mmHg Estimated RAP: 3 mmHg RVSP: 28.12 [...] imaging. Assessment and Plan: *Paroxysmal Atrial Fib [id number] of 3 to 4 also have some [...] Patient cannot take anticoagulation for A-fib despite [id number] because of multiple issue including GI bleeding [...] BODY REMOVAL; Surgeon: Scott Daley MD; Location: [facility]; Service: Gastroenterology; Laterality: N/A; General Visit [...] 12.0 - 18.0 g/dL PaO2/FIO2 calculated 203.0 [facility] COLLECTION SITE Right Radial Arterial Puncture Yes Blood Gas PT Temperature C 37.0 Sen's Test Acceptable Critical Values Notification Critical Blood gas called to TRAY LORENZ RN . [place] [id number] and confirmed on 12/07/2024 10:51 ABG Number of Draw Attempts 1 FIO2 21.0 Blood Gas Temperature Corrected Results No No Glucose, Nova Meter Status: Abnormal Collection Time: 12/07/24 10:54 AM Result Value Ref Range POC-GLUCOSE 146 (H) 70 - 110 mg/dL [employer] [facility] [id number] Blood gas, arterial Status: Abnormal Collection Time: [...] ARTERIAL 8.9 (L) 12.0 - 18.0 g/dL [facility] COLLECTION SITE Right Radial Arterial Puncture Yes Blood Gas O2 Delivery Device Cannula Oxygen Flow Rate 2 Blood Gas PT Temperature C 37.0 Sen's Test Unacceptable Vent Mode Other Critical Values Notification Critical Blood gas called to DR MALAGON . Results [place] [id number] and confirmed on 12/07/2024 14:14 ABG Number of Draw Attempts 1 Performed by: CD FIO2 Blood Gas Temperature Corrected Results No No Glucose, Nova Meter Status: Abnormal Collection Time: 12/07/24 3:39 PM Result Value Ref Range POC-GLUCOSE 159 (H) 70 - 110 mg/dL [facility] [facility] [id number] ABG Status: Abnormal Collection Time: 12/07/24 4:21 [...] 12.0 - 18.0 g/dL PaO2/FIO2 calculated 359.0 [facility] COLLECTION SITE Right Brachial Arterial Puncture Yes Blood Gas O2 Delivery Device NIV Blood Gas PT Temperature C 37.0 Sen's Test Not Applicable Critical Values Notification Critical Blood gas called to SEB LORENZ RN . Results acknowledged/read back to [id number] and confirmed on 12/07/2024 16:42 ABG Number of Draw Attempts 2 Set Rate 16.0 IPAP 10 EPAP 6 FIO2 50.0 Blood Gas Temperature Corrected Results No No Glucose, Nova Meter Status: Abnormal Collection Time: 12/07/24 7:54 PM Result Value Ref Range POC-GLUCOSE 164 (H) 70 - 110 mg/dL [facility] [facility] [id number] Basic Metabolic Panel Status: Abnormal Collection Time: [...] POC-GLUCOSE 136 (H) 70 - 110 mg/dL [facility] [employer] [facility] Attendant [id number] Blood gas, arterial Status: Abnormal Collection Time: [...] ARTERIAL 8.8 (L) 12.0 - 18.0 g/dL [facility] COLLECTION SITE Right Brachial Arterial Puncture Yes Blood Gas O2 Delivery Device Cannula Oxygen Flow Rate 4 Blood Gas PT Temperature C 37.0 Sen's Test Not Applicable Critical Values Notification Critical Blood gas called to KNOWN CONDITION . Results acknowledged/read back to [id number] and confirmed on 12/08/2024 07:30 ABG Number [...] Pending blood gas improvement And more awake lead case manager working discharge plan * Hill Boo [...] Ext: +++ Pedal edema , no cyanosis DIRECTOR OF PHOTOGRAPHY: Alert, No focal deficit noted grossly Psy: Cooperative Labs: Results for orders placed or performed during the hospital encounter of 11/30/24 (from the past 24 hours) ECG 12 lead Status: None Collection Time: 12/07/24 10:29 AM Result Value Ref Range VENTRICULAR RATE EKG/MIN 91 BPM ATRIAL RATE (MCT) 91 BPM MA Interval 142 ms QRS-INTERVAL (MSEC) 88 ms QT Interval 376 ms QTC Interval 462 ms P [place] 39 degrees R AXIS (MCT) -3 degrees T Wave [place] 4 degrees [place] Diagnosis Normal sinus rhythm Nonspecific T wave [...] 12.0 - 18.0 g/dL PaO2/FIO2 calculated 203.0 [facility] COLLECTION SITE Right Radial Arterial Puncture Yes Blood Gas PT Temperature C 37.0 Sen's Test Acceptable Critical Values Notification Critical Blood gas called to TRAY LORENZ RN . [place] [id number] and confirmed on 12/07/2024 10:51 ABG Number of Draw Attempts 1 FIO2 21.0 Blood Gas Temperature Corrected Results No No Glucose, Nova Meter Status: Abnormal Collection Time: 12/07/24 10:54 AM Result Value Ref Range POC-GLUCOSE 146 (H) 70 - 110 mg/dL [facility] [employer] [facility] Att[facility] [id number] Blood gas, arterial Status: Abnormal Collection Time: [...] ARTERIAL 8.9 (L) 12.0 - 18.0 g/dL [facility] COLLECTION SITE Right Radial Arterial Puncture Yes Blood Gas O2 Delivery Device Cannula Oxygen Flow Rate 2 Blood Gas PT Temperature C 37.0 Sen's Test Unacceptable Vent Mode Other Critical Values Notification Critical Blood gas called to DR MALAGON . [place] [id number] and confirmed on 12/07/2024 14:14 ABG Number of Draw Attempts 1 Performed by: WIL FIO2 Blood Gas Temperature Corrected Results No No Glucose, Nova Meter Status: Abnormal Collection Time: 12/07/24 3:39 PM Result Value Ref Range POC-GLUCOSE 159 (H) 70 - 110 mg/dL [facility] [employer] Attendant [id number] ABG Status: Abnormal Collection Time: 12/07/24 4:21 [...] 12.0 - 18.0 g/dL PaO2/FIO2 calculated 359.0 [facility] COLLECTION SITE Right Brachial Arterial Puncture Yes Blood Gas O2 Delivery Device NIV Blood Gas PT Temperature C 37.0 Sen's Test Not Applicable Critical Values Notification Critical Blood gas called to SEB LORENZ RN . Results acknowledged/read back to [id number] and confirmed on 12/07/2024 16:42 ABG Number of Draw Attempts 2 Set Rate 16.0 IPAP 10 EPAP 6 FIO2 50.0 Blood Gas Temperature Corrected Results No No Glucose, Nova Meter Status: Abnormal Collection Time: 12/07/24 7:54 PM Result Value Ref Range POC-GLUCOSE 164 (H) 70 - 110 mg/dL [facility] [employer] [facility] Attendant [id number] Basic Metabolic Panel Status: Abnormal Collection Time: [...] Osmolality Calc 322.3 mOsm/kg [facility] Status: Abnormal Collection Time: 12/08/24 4:10 AM [...] POC-GLUCOSE 136 (H) 70 - 110 mg/dL [facility] [employer] Room Attendant [id number] Blood gas, arterial Status: Abnormal Collection Time: [...] ARTERIAL 8.8 (L) 12.0 - 18.0 g/dL [facility] COLLECTION SITE Right Brachial Arterial Puncture Yes Blood Gas O2 Delivery Device Cannula Oxygen Flow Rate 4 Blood Gas PT Temperature C 37.0 Sen's Test Not Applicable Critical Values Notification Critical Blood gas called to KNOWN CONDITION . Results acknowledged/read back to [id number] and confirmed on 12/08/2024 07:30 ABG Number [...] renal function - No emergent need of DYNAMITE RECLAIMER - Monitor H/H and transfuse for Hgb [...] history as below. She initially presented to [facility] with swollen abdomen, abdominal discomfort, and bilateral lower extremity pain. Her creatinine was elevated and as a result, she was transferred to [facility] for he patorenal syndrome. Upon arrival here, [...] BODY REMOVAL; Surgeon: Scott Daley MD; Location: [facility]; Service: Gastroenterology; Laterality: N/A; Allergies: No [...] 91 BPM ATRIAL RATE (MCT) 91 BPM MA Interval 142 ms QRS-INTERVAL (MSEC) 88 ms QT Interval 376 ms QTC Interval 462 ms P [place] 39 degrees R AXIS (MCT) -3 degrees T Wave [place] 4 degrees [place] Diagnosis Normal sinus rhythm Nonspecific T wave [...] 12.0 - 18.0 g/dL PaO2/FIO2 calculated 203.0 [facility] COLLECTION SITE Right Radial Arterial Puncture Yes Blood Gas PT Temperature C 37.0 Sen's Test Acceptable Critical Values Notification Critical Blood gas called to TRAY LORENZ RN . [place] [id number] and confirmed on 12/07/2024 10:51 ABG Number of Draw Attempts 1 FIO2 21.0 Blood Gas Temperature Corrected Results No No Glucose, Nova Meter Status: Abnormal Collection Time: 12/07/24 10:54 AM Result Value Ref Range POC-GLUCOSE 146 (H) 70 - 110 mg/dL [facility] [facility] Att[facility] [id number] Blood gas, arterial Status: Abnormal Collection Time: [...] ARTERIAL 8.9 (L) 12.0 - 18.0 g/dL [facility] COLLECTION SITE Right Radial Arterial Puncture Yes Blood Gas O2 Delivery Device Cannula Oxygen Flow Rate 2 Blood Gas PT Temperature C 37.0 Sen's Test Unacceptable Vent Mode Other Critical Values Notification Critical Blood gas called to DR MALAGON . [place] [id number] and confirmed on 12/07/2024 14:14 ABG Number of Draw Attempts 1 Performed by: CD FIO2 Blood Gas Temperature Corrected Results No No Glucose, Nova Meter Status: Abnormal Collection Time: 12/07/24 3:39 PM Result Value Ref Range POC-GLUCOSE 159 (H) 70 - 110 mg/dL [facility] [employer] Attendant [id number] ABG Status: Abnormal Collection Time: 12/07/24 4:21 [...] 12.0 - 18.0 g/dL PaO2/FIO2 calculated 359.0 [facility] COLLECTION SITE Right Brachial Arterial Puncture Yes Blood Gas O2 Delivery Device NIV Blood Gas PT Temperature C 37.0 Sen's Test Not Applicable Critical Values Notification Critical Blood gas called to SEB LORENZ RN . Results acknowledged/read back to [id number] and confirmed on 12/07/2024 16:42 ABG Number of Draw Attempts 2 Set Rate 16.0 IPAP 10 EPAP 6 FIO2 50.0 Blood Gas Temperature Corrected Results No No Glucose, Nova Meter Status: Abnormal Collection Time: 12/07/24 7:54 PM Result Value Ref Range POC-GLUCOSE 164 (H) 70 - 110 mg/dL [facility] [facility] Attendant [id number] Basic Metabolic Panel Status: Abnormal Collection Time: [...] POC-GLUCOSE 136 (H) 70 - 110 mg/dL [facility] [facility] Attendant [id number] Blood gas, arterial Status: Abnormal Collection Time: [...] ARTERIAL 8.8 (L) 12.0 - 18.0 g/dL [facility] COLLECTION SITE Right Brachial Arterial Puncture Yes Blood Gas O2 Delivery Device Cannula Oxygen Flow Rate 4 Blood Gas PT Temperature C 37.0 Sen's Test Not Applicable Critical Values Notification Critical Blood gas called to KNOWN CONDITION . Results acknowledged/read back to [id number] and confirmed on 12/08/2024 07:30 ABG Number of Draw Attempts 1 FIO2 Blood Gas Temperature Corrected Results No No Radiology Radiology Results (last day) Procedure Component Value Units Date/Time XR chest AP portable [[id number]] Collected: 12/07/24 1920 Order Status: Completed Updated: 12/07/24 1646 Narrative: [...] Fungus Culture W/ROSA MARIA Or Nimisha Ink [[id number]] Collected: 11/30/24 160 Order Status: Completed Specimen: Peritoneal Fluid from Body Fluid Updated: 12/07/24 170 Result No fungus isolated at 1 week. ROSA MARIA Prep No fungal elements seen Narrative: Specimen Description: peritoneal fluid AFB Culture And Stain [[id number]] Collected: 11/30/24 160 Order Status: Completed Specimen: Peritoneal Fluid from Body Fluid Updated: 12/07/24 170 Result No Acid Fast Bacilli isolated at 1 week. AFB Smear No acid fast bacilli seen Narrative: Specimen Description: peritoneal fluid Anaerobic Culture [[id number]] Collected: 11/30/24 160 Order Status: Completed Specimen: Peritoneal Fluid from Body Fluid Updated: 12/05/24 0634 Result No Anaerobic growth Narrative: Specimen Description: peritoneal fluid Blood Culture [[id number]] Collected: 11/30/24 0340 Order Status: Completed Specimen: Blood from Arm, Left Updated: 12/05/24 0501 Result No growth in 5 days Blood Culture [[id number]] Collected: 11/30/24 0342 Order Status: Completed Specimen: Blood from Arm, Right Updated: 12/05/24 0501 Result No growth in 5 days Body Fluid Culture + Gram Stain [[id number]] Collected: 11/30/24 1603 Order Status: Completed Specimen: Peritoneal Fluid from Body Fluid Updated: 12/03/24 0907 Result No growth Gram Stain Result No organisms seen No cells seen Narrative: Specimen Description: peritoneal fluid Body Fluid/CSF - Path Review () [[id number]] Collected: 11/30/24 160 Order Status: Completed Specimen: [...] to continue with albumin/diuretics no indication for DYNAMITE RECLAIMER No significant pleural effusion for thoracentesis If needed repeat chest x-ray. Otherwise continue diuresis Pulmonary twill follow . If ABG not improving ,or worsening mental status recommended ICU Case discussed during round. I have personally evaluated the patient and performed a iipv-ul-nosr diagnostic evaluation on this patient; I have reviewed history, performed physical examination, reviewed laboratory studies. , andreviewed images independent of radiologist. I have actively directed the medical care, formulated assessemnt and plan of care. Patient requires a high complexity of decision making for assessment. 34 minutes critical care time was spent. Voice line fisher technology ([employer]urse[employer]) is used for dictation of this note and sound-alike words might be erroneously placed despite reviewing the note for accuracy.Errors in dictation may reflect use of voice recognition software and not all errors in line fisher may have been detectedprior to signing * Jalen Woodward, OTR/L - 12/07/2024 2:26 PM EDT Images [...] Coronel Admission Date: 11/30/2024 Primary Care Provider: [facility] Find-a-Doc Chief Complaint/Reason for Consult: No chief complaint on file. History of Present Illness: Mary Coronel is a 64 y.o. female, admitted on: 11/30/2024 1:43 AM. presented to [facility] with swollen abdomen, abdominal discomfort and bilateral lower extremity pitting edema. Patient's BUN/creatinine elevated, and patient subsequently transferred to [facility] for hepatorenal syndrome evaluation. Admits to [...] 2.5 mg 2.5 mg nebulization Q6H PRN Alebrt Garcia MD amiodarone (PACERONE) tablet 200 mg [...] PRN Huey Hurtado MD 10 mg at [id number] insulin lispro (HUMALOG, ADMELOG) injection 0-18 Units [...] mg 4 mg intravenous Q8H PRN Huey uHrtado MD pantoprazole (PROTONIX) EC tablet 40 mg [...] Culture And Stain AFB Culture And Stain [facility] Non-Press Operator Assistant Cytology [facility] Non-Press Operator Assistant Cytology DIFFERENTIAL, BODY FLUID DIFFERENTIAL, BODY FLUID Body Fluid/CSF - Path Review () Body Fluid/CSF - Path Review () [facility] BONE MARROW SMEAR, ASPIRATION, AND STAIN [facility] BONE MARROW SMEAR, ASPIRATION, AND [...] BODY REMOVAL; Surgeon: Scott Daley MD; Location: [facility]; Service: Gastroenterology; Laterality: N/A; Allergies: No Known [...] Normal range of motion. Integumentary: Warm, Dry, [place]. Neurologic: No obvious focal deficit Psychiatric: Cooperative, Appropriate mood & affect. Labs, Imaging, and Other Studies: Echo Results (last 7 days) Procedure Component Value Units Date/Time ECHO COMPLETE (DOPPLER / COLOR) W OR WO CONTRAST [[id number]] Collected: 11/30/24 1874 Order Status: Completed Updated: 11/30/24 1046 Narrative: TRANSTHORACIC ECHOCARDIOGRAPHY REPORT Demographics Patient Name: RIN JONES : 1960 Age: 64 year(s) Corporate ID Number: [id number] Gender Female Manager Code: Giovanna Pranav Height: 67 inches [facility] Referring Physician: HUEY HURTADO Weight: 225 pounds [...] 1.35 m/s E/A ratio: 0.97 m/s Volume udwdhumtr014.99 LV length: 8.51 cm ml Volume scowpwlw01.96 ml LVOT diameter: 1.79 cm Normal sized [...] Valve TR velocity: 2.51 m/s TR gradient: 25.01758 mmHg Estimated RAP: 3 mmHg RVSP: 28.12 [...] (DOPPLER / COLOR) W OR WO CONTRAST [[id number]] Collected: 11/30/24 0725 Order Status: Completed Updated: 11/30/24 1046 Narrative: TRANSTHORACIC ECHOCARDIOGRAPHY REPORT Demographics Patient Name: RIN JONES : 1960 Age: 64 year(s) Corporate ID Number: [id number] Gender Female Manager Code: Giovanna Rock Height: 67 inches [facility] Referring Physician: HUEY HURTADO Weight: 225 pounds [...] 1.35 m/s E/A ratio: 0.97 m/s Volume amuhezdpj511.99 LV length: 8.51 cm ml Volume oteejqvj40.96 ml LVOT diameter: 1.79 cm Normal sized [...] Valve TR velocity: 2.51 m/s TR gradient: 25.94295 mmHg Estimated RAP: 3 mmHg RVSP: 28.12 [...] imaging. Assessment and Plan: *Paroxysmal Atrial Fib [id number] of 2 also have some wide-complex tachycardia [...] 90 BPM ATRIAL RATE (MCT) 90 BPM MA Interval 142 ms QRS-INTERVAL (MSEC) 92 ms QT Interval 378 ms QTC Interval 462 ms P [place] 28 degrees R AXIS (MCT) -4 degrees T Wave [place] 21 degrees [place] Diagnosis Normal sinus rhythm Septal infarct , age undetermined Abnormal ECG When compared with ECG of 04-DEC-2024 20:08, Septal infarct is now present Nonspecific T wave abnormality no longer evident in Anterior leads Glucose, Nova Meter Status: Abnormal Collection Time: 12/06/24 4:06 PM Result Value Ref Range POC-GLUCOSE 134 (H) 70 - 110 mg/dL [facility] [facility] Att[facility] [id number] Glucose, Nova Meter Status: Abnormal Collection Time: 12/06/24 7:26 PM Result Value Ref Range POC-GLUCOSE 170 (H) 70 - 110 mg/dL [facility] Att[facility] [id number] CBC - Hemogram (-BKR) Status: Abnormal Collection [...] POC-GLUCOSE 159 (H) 70 - 110 mg/dL [facility] Attendant [id number] ECG 12 lead Status: None (In process) Collection Time: 12/07/24 10:29 AM Result Value Ref Range VENTRICULAR RATE EKG/MIN 91 BPM ATRIAL RATE (MCT) 91 BPM MA Interval 142 ms QRS-INTERVAL (MSEC) 88 ms QT Interval 376 ms QTC Interval 462 ms P [place] 39 degrees R AXIS (MCT) -3 degrees T Wave [place] 4 degrees [place] Diagnosis Normal sinus rhythm Nonspecific T wave abnormality Abnormal ECG When compared with ECG of 06-DEC-2024 13:16, No significant change was found Glucose, Nova Meter Status: Abnormal Collection Time: 12/07/24 10:54 AM Result Value Ref Range POC-GLUCOSE 146 (H) 70 - 110 mg/dL [facility] Room Attendant [id number] XR chest AP portable Narrative: PORTABLE CHEST; HISTORY: Respiratory failure. COMPARISON: December 04, 2024. FINDINGS: The heart is normal in size. The mediastinum is unremarkable there is pulmonary edema. There is no pneumothorax. The osseous structures or anterior cervical fusion in the lower cervical spine. Impression: Pulmonary edema. Images reviewed, interpreted, and dictated by Dr. Mike Pichardo. Transcribed by Sandra VanHoose, PA-C. Assessment Anasarca Paroxysmal Atrial Fib *CAD [...] ordered Need to be transferred to ICU lead case manager working discharge plan * Lian Dominguez RN - 12/07/2024 10:00 AM EDTSummary: MDRPI MDRPI found on patients left anterior thigh due to urinary catheter tubing. Cosigned by Mary Carmen Mcfadden MD at 12/07/2024 5:11 PM EDT * Lian Dominguez RN - 12/07/2024 9:53 AM EDTSumemmanuelle: Wound care Images from the original note [...] upper Anterior;Left Date First Assessed/Time First Assessed: 12/07/24 0952 Present on Original Admission: No Primary Wound Type: Pressure Injury Location: Leg upper Wound Location Orientation: Anterior;Left Site Assessment Red;Yellow [place]-Wound Assessment [place] Odor None Pressure Injury Stage 2 Wound care performing NDNQI rounds. Patient on JORJE surface, agreeable to assessment. During head totoe skin inspection a MDRPI found on patients left anterior thigh due to urinary catheter tubing. MDRPI verified by second wound care marine steamfitter. [facility] RN recommends cleansing site with NS, pat [...] Ext: +++ Pedal edema , no cyanosis DIRECTOR OF PHOTOGRAPHY: Alert, No focal deficit noted grossly Psy: Cooperative Labs: Results for orders placed or performed during the hospital encounter of 11/30/24 (from the past 24 hours) Glucose, Nova Meter Status: Abnormal Collection Time: 12/06/24 10:36 AM Result Value Ref Range POC-GLUCOSE 150 (H) 70 - 110 mg/dL [facility] Room Attendant [id number] ECG 12 lead Status: None (In process) Collection Time: 12/06/24 1:16 PM Result Value Ref Range VENTRICULAR RATE EKG/MIN 90 BPM ATRIAL RATE (MCT) 90 BPM MA Interval 142 ms QRS-INTERVAL (MSEC) 92 ms QT Interval 378 ms QTC Interval 462 ms P [place] 28 degrees R AXIS (MCT) -4 degrees T Wave [place] 21 degrees [place] Diagnosis Normal sinus rhythm Septal infarct , age undetermined Abnormal ECG When compared with ECG of 04-DEC-2024 20:08, Septal infarct is now present Nonspecific T wave abnormality no longer evident in Anterior leads Glucose, Nova Meter Status: Abnormal Collection Time: 12/06/24 4:06 PM Result Value Ref Range POC-GLUCOSE 134 (H) 70 - 110 mg/dL [facility] Room Attendant [id number] Glucose, Nova Meter Status: Abnormal Collection Time: 12/06/24 7:26 PM Result Value Ref Range POC-GLUCOSE 170 (H) 70 - 110 mg/dL [facility] Room Attendant [id number] CBC - Hemogram (-BKR) Status: Abnormal Collection [...] POC-GLUCOSE 159 (H) 70 - 110 mg/dL [facility] Room Attendant [id number] XR chest AP portable Narrative: PORTABLE CHEST; [...] output data in the 24 hours ending 12/07/24921 Assessment 1- Anasarca - liver disease and [...] for GFR - No emergent need of DYNAMITE RECLAIMER - Monitor H/H and transfuse for Hgb [...] Admission Date: 11/30/2024 Primary Care Provider: JACKIE VelazquezaGarry Chief Complaint/Reason for Consult: No chief complaint on file. History of Present Illness: Mary Coronel is a 64 y.o. female, admitted on: 11/30/2024 1:43 AM. presented to [facility] with swollen abdomen, abdominal discomfort and bilateral lower extremity pitting edema. Patient's BUN/creatinine elevated, and patient subsequently transferred to [facility] for hepatorenal syndrome evaluation. Admits to [...] Culture And Stain AFB Culture And Stain [facility] Non-Press Operator Assistant Cytology [facility] Non-Press Operator Assistant Cytology DIFFERENTIAL, BODY FLUID DIFFERENTIAL, BODY FLUID Body Fluid/CSF - Path Review () Body Fluid/CSF - Path Review () [facility] BONE MARROW SMEAR, ASPIRATION, AND STAIN [facility] BONE MARROW SMEAR, ASPIRATION, AND [...] BODY REMOVAL; Surgeon: Scott Daley MD; Location: [facility]; Service: Gastroenterology; Laterality: N/A; Allergies: No [...] Normal range of motion. Integumentary: Warm, Dry, [place]. Neurologic: No obvious focal deficit Psychiatric: Cooperative, Appropriate mood & affect. Labs, Imaging, and Other Studies: Echo Results (last 7 days) Procedure Component Value Units Date/Time ECHO COMPLETE (DOPPLER / COLOR) W OR WO CONTRAST [[id number]] Collected: 11/30/24724 Order Status: Completed Updated: 11/30/24 104 Narrative: TRANSTHORACIC ECHOCARDIOGRAPHY REPORT Demographics Patient Name: RIN JONES : 1960 Age: 64 year(s) Corporate ID Number: [id number] Gender Female Manager Code: Giovanna Rock Height: 67 inches [facility] Referring Physician: HUEY HURTADO Weight: 225 pounds Interpreting JESSICA RAYMOND MD BMI: 35.24 kg/m^2 Physician: Date of Service: 11/30/2024 Blood Pressure: 118/59 mmHg Room Number: 579 Type of Study: TTE procedure: ECHO COMPLETE (DOPPLER / COLOR) W OR WO CONTRAST. Patient Status: Routine IP Study [facility] Quality: Adequate visualization History/Tech Notes: Indication: [...] 1.35 m/s E/A ratio: 0.97 m/s Volume qaatakfll814.99 LV length: 8.51 cm ml Volume .96 [...] Valve TR velocity: 2.51 m/s TR gradient: 25.27967 mmHg Estimated RAP: 3 mmHg RVSP: 28.12 [...] (DOPPLER / COLOR) W OR WO CONTRAST [[id number]] Collected: 11/30/24724 Order Status: Completed Updated: 11/30/24 1046 Narrative: TRANSTHORACIC ECHOCARDIOGRAPHY REPORT Demographics Patient Name: RIN JONES : 1960 Age: 64 year(s) Corporate ID Number: [id number] Gender Female Manager Code: Giovanna Rock Height: [address] Referring [...] 1.35 m/s E/A ratio: 0.97 m/s Volume dpdecoevn239.99 LV length: 8.51 cm ml Volume kyzimblv01.96 ml LVOT diameter: 1.79 cm Normal sized [...] Valve TR velocity: 2.51 m/s TR gradient: 25.41137 mmHg Estimated RAP: 3 mmHg RVSP: 28.12 [...] imaging. Assessment and Plan: *Paroxysmal Atrial Fib [id number] of 2 also have some wide-complex tachycardia [...] POC-GLUCOSE 140 (H) 70 - 110 mg/dL [employer] Room Attendant [id number] Glucose, Nova Meter Status: Abnormal Collection Time: 12/05/24 7:21 PM Result Value Ref Range POC-GLUCOSE 145 (H) 70 - 110 mg/dL [facility] Room Attendant [id number] CBC - Hemogram ([facility]) Status: Abnormal Collection [...] POC-GLUCOSE 143 (H) 70 - 110 mg/dL [employer] Room Attendant [id number] Glucose, Nova Meter Status: Abnormal Collection Time: 12/06/24 10:36 AM Result Value Ref Range POC-GLUCOSE 150 (H) 70 - 110 mg/dL [facility] Room Attendant [id number] ECG 12 lead Status: None (In process) Collection Time: 12/06/24 1:16 PM Result Value Ref Range VENTRICULAR RATE EKG/MIN 90 BPM ATRIAL RATE (MCT) 90 BPM MA Interval 142 ms QRS-INTERVAL (MSEC) 92 ms QT Interval 378 ms QTC Interval 462 ms P [place] 28 degrees R AXIS (MCT) -4 degrees T Wave [place] 21 degrees [place] Diagnosis Normal sinus rhythm Septal infarct , [...] OT Monitor kidney function No emergent dialysis lead case manager consulted Discharge Planning: Patient can be [...] Ext: +++ Pedal edema , no cyanosis DIRECTOR OF PHOTOGRAPHY: Alert, No focal deficit noted grossly Psy: Cooperative Labs: Results for orders placed or performed during the hospital encounter of 11/30/24 (from the past 24 hours) Glucose, Nova Meter Status: Abnormal Collection Time: 12/05/24 10:23 AM Result Value Ref Range POC-GLUCOSE 141 (H) 70 - 110 mg/dL [employer] Room Attendant [id number] Hemoglobin Status: Abnormal Collection Time: 12/05/24 3:36 PM Result Value Ref Range Hemoglobin 8.1 (L) 11.2 - 15.7 GM/DL Glucose, Nova Meter Status: Abnormal Collection Time: 12/05/24 5:01 PM Result Value Ref Range POC-GLUCOSE 140 (H) 70 - 110 mg/dL [employer] Room Attendant [id number] Glucose, Nova Meter Status: Abnormal Collection Time: 12/05/24 7:21 PM Result Value Ref Range POC-GLUCOSE 145 (H) 70 - 110 mg/dL [employer] Room Attendant [id number] CBC - Hemogram ([facility]) Status: Abnormal Collection [...] POC-GLUCOSE 143 (H) 70 - 110 mg/dL [employer] Room Attendant [id number] XR chest AP portable Narrative: PORTABLE CHEST [...] for GFR - No emergent need of DYNAMITE RECLAIMER - Monitor H/H and transfuse for Hgb less than 7.0 - Serologic workup pending Discussed with patient * Blanka Malagon MD - 12/06/2024 8:20 AM EDT Images from the original note were not included. PULMONARY AND CRITICAL CARE Consult Note Date of Service: 12/06/2024 HPI: This is a 64 y.o. year old female with past medical history as below. She initially presented to [facility] with swollen abdomen, abdominal discomfort, and bilateral lower extremity pain. Her creatinine was elevated and as a result, she was transferred to [facility] for he patorenal syndrome. Upon arrival here, [...] BODY REMOVAL; Surgeon: Scott Daley MD; Location: [facility]; Service: Gastroenterology; Laterality: N/A; Allergies: No [...] POC-GLUCOSE 141 (H) 70 - 110 mg/dL [employer] [id number] Hemoglobin Status: Abnormal Collection Time: 12/05/24 3:36 PM Result Value Ref Range Hemoglobin 8.1 (L) 11.2 - 15.7 GM/DL Glucose, Nova Meter Status: Abnormal Collection Time: 12/05/24 5:01 PM Result Value Ref Range POC-GLUCOSE 140 (H) 70 - 110 mg/dL [employer] Attendant [id number] Glucose, Nova Meter Status: Abnormal Collection Time: 12/05/24 7:21 PM Result Value Ref Range POC-GLUCOSE 145 (H) 70 - 110 mg/dL [employer] Attendant [id number] CBC - Hemogram (SJ-BKR) Status: Abnormal Collection [...] POC-GLUCOSE 143 (H) 70 - 110 mg/dL [employer] Attendant [id number] Radiology Radiology Results (last day) Procedure Component Value Units Date/Time XR chest AP portable [[id number]] Resulted: 12/06/24 08 Order Status: Sent Updated: 12/06/24 08 Microbiology: Microbiology Results (last 7 days) Procedure Component Value Units Date/Time Anaerobic Culture [[id number]] Collected: 11/30/24 160 Order Status: Completed Specimen: Peritoneal Fluid from Body Fluid Updated: 12/05/24 0634 Result No Anaerobic growth Narrative: Specimen Description: peritoneal fluid Blood Culture [[id number]] Collected: 11/30/24 0340 Order Status: Completed Specimen: Blood from Arm, Left Updated: 12/05/24 0501 Result No growth in 5 days Blood Culture [[id number]] Collected: 11/30/24 0342 Order Status: Completed Specimen: Blood from Arm, Right Updated: 12/05/24 0501 Result No growth in 5 days Body Fluid Culture + Gram Stain [[id number]] Collected: 11/30/24 1603 Order Status: Completed Specimen: Peritoneal Fluid from Body Fluid Updated: 12/03/24 0907 Result No growth Gram Stain Result No organisms seen No cells seen Narrative: Specimen Description: peritoneal fluid Body Fluid/CSF - Path Review (SJ) [[id number]] Collected: 11/30/24 1603 Order Status: Completed Specimen: Peritoneal Fluid from Body Fluid Updated: 12/03/24 0654 SENT TO PATHOLOGY FOR REVIEW Yes Scan Result Mesothelial cells. MD German 12/02/2024 AFB Culture And Stain [[id number]] Collected: 11/30/24 1603 Order Status: Completed Specimen: Peritoneal Fluid from Body Fluid Updated: 12/01/24 1410 AFB Smear No acid fast bacilli seen Narrative: Specimen Description: peritoneal fluid Glucose, body fluid [[id number]] Collected: 11/30/24 1603 Order Status: Completed Specimen: Body Fluid from Peritoneal Fluid Updated: 12/01/24 0710 Glucose, Body Fluid 107 mg/dL BODY FLUID TYPE Peritoneal Narrative: This test has been modified from the engineering surveyor's instructions and its performance characteristics were determined by the laboratory. The reference intervals and other method performance specifications are unavailable for this test. It is recommended to interpret body fluid concentrations in comparison with the corresponding serum or plasma concentrations and to integrate test results into the clinical context. Protein, body fluid [[id number]] Collected: 11/30/241602 Order Status: Completed Specimen: Body Fluid from Peritoneal Fluid Updated: 12/01/24 0710 Protein, Fluid 1.9 g/dL BODY FLUID TYPE Peritoneal Narrative: This test has been modified from the engineering surveyor's instructions and its performance characteristics were determined by the laboratory. The reference intervals and other method performance specifications are unavailable for this test. It is recommended to interpret body fluid concentrations in comparison with the corresponding serum or plasma concentrations and to integrate test results into the clinical context. Urine Culture [[id number]] Collected: 11/30/24 1135 Order Status: Completed Specimen: Urine, Clean Catch Updated: 12/01/24648 Result Recollect Specimen - 3 or more organisms suggests contamination Body fluid cell count with differential [[id number]] (Abnormal) Collected: 11/30/241602 Order Status: Completed Specimen: [...] fluids are not defined. DIFFERENTIAL, BODY FLUID [[id number]] Collected: 11/30/241602 Order Status: Completed Specimen: Peritoneal Fluid from Body Fluid Updated: 11/30/242048 Neutrophils Fluid 5 % Lymphocytes Fluid 46 % Unidentified Mononuclear Cells BF 49 % Lactate dehydrogenase (LDH), body fluid [[id number]] Collected: 11/30/241602 Order Status: Completed Specimen: Peritoneal Fluid from Body Fluid Updated: 11/30/24 1819 LDH, Fluid 71 U/L BODY FLUID TYPE Peritoneal Narrative: This test has been modified from the engineering surveyor's instructions and its performance characteristics were determined by the laboratory. The reference intervals and other method performance specifications are unavailable for this test. It is recommended to interpret body fluid concentrations in comparison with the corresponding serum or plasma concentrations and to integrate test results into the clinical context. Fungus Culture W/ROSA MARIA Or Nimisha Ink [[id number]] Collected: 11/30/24 1603 Order Status: Completed Specimen: Peritoneal Fluid from Body Fluid Updated: 11/30/24 1754 ROSA MARIA Prep No fungal elements seen Narrative: Specimen Description: peritoneal fluid Total Protein, Body Fluid(SENDOUT) [[id number]] Collected: 11/30/24 1603 Order Status: Canceled Specimen: Peritoneal Fluid from Body Fluid Updated: 11/30/24 1634 Glucose Body Fluid(SENDOUT) [[id number]] Collected: 11/30/24 1603 Order Status: Canceled Specimen: Peritoneal Fluid from Body Fluid Updated: 11/30/24 1634 Urine Culture [[id number]] Collected: 11/30/24 1135 Order Status: Canceled Specimen: [...] to continue with albumin/diuretics no indication for DYNAMITE RECLAIMER Oxygenation improved 3 L nasal cannula, leg [...] personally evaluated the patient and performed a adsp-vr-azho diagnostic evaluation on this patient; I have reviewed history, performed physical examination, reviewed laboratory studies. , andreviewed images independent of radiologist. I have actively directed the medical care, formulated assessemnt and plan of care. Patient requires a high complexity of decision making for assessment. 46 minutes pulmonary care clinical time was spent. Voice line fisher technology (NurseGrid) is used for dictation of this note and sound-alike words might be erroneously placed despite reviewing the note for accuracy.Errors in dictation may reflect use of voice recognition software and not all errors in line fisher may have been detectedprior to signing * [...] admitted on: 11/30/2024 1:43 AM. presented to [facility] with swollen abdomen, abdominal discomfort and bilateral lower extremity pitting edema. Patient's BUN/creatinine elevated, and patient subsequently transferred to [facility] for hepatorenal syndrome evaluation. Admits to [...] NAS Timothy Bai MD 25 g at 12/05/24 [...] Night Huey Hurtado MD 20 mg at 12/04/24 2152 benzocaine-menthoL (CEPACOL) lozenge 1 lozenge 1 lozenge [...] TID Hill Boo MD 300 mg at 12/05/24 0813 glucagon injection [...] Culture And Stain AFB Culture And Stain [facility] Non-Press Operator Assistant Cytology [facility] Non-Press Operator Assistant Cytology DIFFERENTIAL, BODY FLUID DIFFERENTIAL, BODY FLUID Body Fluid/CSF - Path Review () Body Fluid/CSF - Path Review () [facility] BONE MARROW SMEAR, ASPIRATION, AND STAIN [facility] BONE MARROW SMEAR, ASPIRATION, AND [...] BODY REMOVAL; Surgeon: Scott Daley MD; Location: [facility]; Service: Gastroenterology; Laterality: N/A; Allergies: No [...] Normal range of motion. Integumentary: Warm, Dry, [place]. Neurologic: No obvious focal deficit Psychiatric: Cooperative, Appropriate mood & affect. Labs, Imaging, and Other Studies: Echo Results (last 7 days) Procedure Component Value Units Date/Time ECHO COMPLETE (DOPPLER / COLOR) W OR WO CONTRAST [[id number]] Collected: 11/30/24 0725 Order Status: Completed Updated: 11/30/24 1046 Narrative: TRANSTHORACIC ECHOCARDIOGRAPHY REPORT Demographics Patient Name: RIN JONES : 1960 Age: 64 year(s) Corporate ID Number: [id number] Gender Female Manager Code: Giovanna Rock Height: 67 inches [facility] Referring Physician: HUEY HURTADO Weight: 225 pounds [...] 1.35 m/s E/A ratio: 0.97 m/s Volume mpjrmymww967.99 LV length: 8.51 cm ml Volume qbtelnyy44.96 ml LVOT diameter: 1.79 cm Normal sized [...] Valve TR velocity: 2.51 m/s TR gradient: 25.33712 mmHg Estimated RAP: 3 mmHg RVSP: 28.12 [...] (DOPPLER / COLOR) W OR WO CONTRAST [[id number]] Collected: 11/30/24724 Order Status: Completed Updated: 11/30/24 104 Narrative: TRANSTHORACIC ECHOCARDIOGRAPHY REPORT Demographics Patient Name: RIN JONES : 1960 Age: 64 year(s) Corporate ID Number: [id number] Gender Female Manager Code: Giovanna Rock Height: 67 inches [facility] Referring Physician: HUEY HURTADO Weight: 225 pounds [...] 1.35 m/s E/A ratio: 0.97 m/s Volume uafxcccgb328.99 LV length: 8.51 cm ml Volume ygprbckp43.96 ml LVOT diameter: 1.79 cm Normal sized [...] Valve TR velocity: 2.51 m/s TR gradient: 25.40021 mmHg Estimated RAP: 3 mmHg RVSP: 28.12 [...] imaging. Assessment and Plan: *Paroxysmal Atrial Fib [id number] of 2 also have some wide-complex tachycardia [...] BODY REMOVAL; Surgeon: Scott Daley MD; Location: [facility]; Service: Gastroenterology; Laterality: N/A; General Visit [...] Mobility Not assessed, patient ambulatory. Outcome Measures [facility] Basic Mobility Inpatient Short Form How much [...] Ext: +++ Pedal edema , no cyanosis DIRECTOR OF PHOTOGRAPHY: Alert, No focal deficit noted grossly Psy: Cooperative Labs: Results for orders placed or performed during the hospital encounter of 11/30/24 (from the past 24 hours) Glucose, Nova Meter Status: Abnormal Collection Time: 12/04/24 10:52 AM Result Value Ref Range POC-GLUCOSE 136 (H) 70 - 110 mg/dL [employer] [id number] Basic Metabolic Panel Status: Abnormal Collection Time: [...] POC-GLUCOSE 137 (H) 70 - 110 mg/dL [employer] Attendant [id number] ECG 12 lead Status: None (In process) Collection Time: 12/04/24 8:08 PM Result Value Ref Range SYSTOLIC BLOOD PRESSURE (MCT) 133 mmHg DIASTOLIC BLOOD PRESSURE (MCT) 61 mmHg VENTRICULAR RATE EKG/MIN 85 BPM ATRIAL RATE (MCT) 85 BPM MA Interval 140 ms QRS-INTERVAL (MSEC) 94 ms QT Interval 426 ms QTC Interval 506 ms P [place] 44 degrees R AXIS (MCT) 27 degrees T Wave [place] -27 degrees [place] Diagnosis Normal sinus rhythm Nonspecific T wave abnormality Abnormal ECG When compared with ECG of 04-DEC-2024 03:25, QT has lengthened Glucose, Nova Meter Status: Abnormal Collection Time: 12/04/24 10:20 PM Result Value Ref Range POC-GLUCOSE 147 (H) 70 - 110 mg/dL [employer] Room Attendant [id number] Hemoglobin Status: Abnormal Collection Time: 12/04/24 11:54 [...] POC-GLUCOSE 123 (H) 70 - 110 mg/dL [employer] Attendant [id number] XR chest AP portable Narrative: PORTABLE CHEST [...] renal function - No emergent need of DYNAMITE RECLAIMER - Monitor H/H and transfuse for Hgb [...] history as below. She initially presented to [facility] with swollen abdomen, abdominal discomfort, and bilateral lower extremity pain. Her creatinine was elevated and as a result, she was transferred to [facility] for he patorenal syndrome. Upon arrival here, [...] BODY REMOVAL; Surgeon: Scott Daley MD; Location: [facility]; Service: Gastroenterology; Laterality: N/A; Allergies: No [...] POC-GLUCOSE 136 (H) 70 - 110 mg/dL [employer] [facility] Attendant [id number] Basic Metabolic Panel Status: Abnormal Collection Time: [...] POC-GLUCOSE 137 (H) 70 - 110 mg/dL [employer] Attendant [id number] ECG 12 lead Status: None (In process) Collection Time: 12/04/24 8:08 PM Result Value Ref Range SYSTOLIC BLOOD PRESSURE (MCT) 133 mmHg DIASTOLIC BLOOD PRESSURE (MCT) 61 mmHg VENTRICULAR RATE EKG/MIN 85 BPM ATRIAL RATE (MCT) 85 BPM MA Interval 140 ms QRS-INTERVAL (MSEC) 94 ms QT Interval 426 ms QTC Interval 506 ms P [place] 44 degrees R AXIS (MCT) 27 degrees T Wave [place] -27 degrees [place] Diagnosis Normal sinus rhythm Nonspecific T wave abnormality Abnormal ECG When compared with ECG of 04-DEC-2024 03:25, QT has lengthened Glucose, Nova Meter Status: Abnormal Collection Time: 12/04/24 10:20 PM Result Value Ref Range POC-GLUCOSE 147 (H) 70 - 110 mg/dL [employer] Room Attendant [id number] Hemoglobin Status: Abnormal Collection Time: 12/04/24 11:54 [...] POC-GLUCOSE 123 (H) 70 - 110 mg/dL [employer] Attendant [id number] Radiology Radiology Results (last day) Procedure Component Value Units Date/Time XR chest AP portable [[id number]] Collected: 12/04/24922 Order Status: Completed Updated: 12/04/24 3327 Narrative: PORTABLE CHEST HISTORY: Acute shortness of [...] Procedure Component Value Units Date/Time Anaerobic Culture [[id number]] Collected: 11/30/24 1603 Order Status: Completed Specimen: Peritoneal Fluid from Body Fluid Updated: 12/05/24 0634 Result No Anaerobic growth Narrative: Specimen Description: peritoneal fluid Blood Culture [[id number]] Collected: 11/30/24 0340 Order Status: Completed Specimen: Blood from Arm, Left Updated: 12/05/24 0501 Result No growth in 5 days Blood Culture [[id number]] Collected: 11/30/24 0342 Order Status: Completed Specimen: Blood from Arm, Right Updated: 12/05/24 0501 Result No growth in 5 days Body Fluid Culture + Gram Stain [[id number]] Collected: 11/30/24 160 Order Status: Completed Specimen: Peritoneal Fluid from Body Fluid Updated: 12/03/24 0907 Result No growth Gram Stain Result No organisms seen No cells seen Narrative: Specimen Description: peritoneal fluid Body Fluid/CSF - Path Review (SJ) [[id number]] Collected: 11/30/24 1603 Order Status: Completed Specimen: Peritoneal Fluid from Body Fluid Updated: 12/03/24 0654 SENT TO PATHOLOGY FOR REVIEW Yes Scan Result Mesothelial cells. MD German 12/02/2024 AFB Culture And Stain [[id number]] Collected: 11/30/24 1603 Order Status: Completed Specimen: Peritoneal Fluid from Body Fluid Updated: 12/01/24 1410 AFB Smear No acid fast bacilli seen Narrative: Specimen Description: peritoneal fluid Glucose, body fluid [[id number]] Collected: 11/30/24 1603 Order Status: Completed Specimen: Body Fluid from Peritoneal Fluid Updated: 12/01/24 0710 Glucose, Body Fluid 107 mg/dL BODY FLUID TYPE Peritoneal Narrative: This test has been modified from the engineering surveyor's instructions and its performance characteristics were determined by the laboratory. The reference intervals and other method performance specifications are unavailable for this test. It is recommended to interpret body fluid concentrations in comparison with the corresponding serum or plasma concentrations and to integrate test results into the clinical context. Protein, body fluid [[id number]] Collected: 11/30/241602 Order Status: Completed Specimen: Body Fluid from Peritoneal Fluid Updated: 12/01/24 0710 Protein, Fluid 1.9 g/dL BODY FLUID TYPE Peritoneal Narrative: This test has been modified from the engineering surveyor's instructions and its performance characteristics were determined by the laboratory. The reference intervals and other method performance specifications are unavailable for this test. It is recommended to interpret body fluid concentrations in comparison with the corresponding serum or plasma concentrations and to integrate test results into the clinical context. Urine Culture [[id number]] Collected: 11/30/24 1135 Order Status: Completed Specimen: Urine, Clean Catch Updated: 12/01/24648 Result Recollect Specimen - 3 or more organisms suggests contamination Body fluid cell count with differential [[id number]] (Abnormal) Collected: 11/30/241602 Order Status: Completed Specimen: [...] fluids are not defined. DIFFERENTIAL, BODY FLUID [[id number]] Collected: 11/30/241602 Order Status: Completed Specimen: Peritoneal Fluid from Body Fluid Updated: 11/30/242048 Neutrophils Fluid 5 % Lymphocytes Fluid 46 % Unidentified Mononuclear Cells BF 49 % Lactate dehydrogenase (LDH), body fluid [[id number]] Collected: 11/30/241602 Order Status: Completed Specimen: Peritoneal Fluid from Body Fluid Updated: 11/30/241818 LDH, Fluid 71 U/L BODY FLUID TYPE Peritoneal Narrative: This test has been modified from the engineering surveyor's instructions and its performance characteristics were determined by the laboratory. The reference intervals and other method performance specifications are unavailable for this test. It is recommended to interpret body fluid concentrations in comparison with the corresponding serum or plasma concentrations and to integrate test results into the clinical context. Fungus Culture W/ROSA MARIA Or Nimisha Ink [[id number]] Collected: 11/30/24 1603 Order Status: Completed Specimen: Peritoneal Fluid from Body Fluid Updated: 11/30/24 1754 ROSA MARIA Prep No fungal elements seen Narrative: Specimen Description: peritoneal fluid Total Protein, Body Fluid(SENDOUT) [[id number]] Collected: 11/30/24 160 Order Status: Canceled Specimen: Peritoneal Fluid from Body Fluid Updated: 11/30/24 1634 Glucose Body Fluid(SENDOUT) [[id number]] Collected: 11/30/24 160 Order Status: Canceled Specimen: Peritoneal Fluid from Body Fluid Updated: 11/30/24 1634 Urine Culture [[id number]] Collected: 11/30/24 1135 Order Status: Canceled Specimen: [...] and lisinopril. Per nephrology there is no DYNAMITE RECLAIMER indication at this time. Ultrasound renal on [...] multidisciplinary team including nurse practitioner, nurse, RT, car carder, pharmacist, and case management during multidisciplinary round. I Dr.Hazim Jeramy MD, have personally evaluated the patient and performed a mhyb-oz-copf diagnostic evaluation on this patient; I have Obtained history, performed physical examination, reviewed laboratory studies. I have reviewed images independent of radiologist. I have actively directed the medical care, formulated diagnosis, and the plan of care. Patient requires a high complexity of decision making for assessment. Voice line fisher technology (NurseGrid) is used for dictation of this note and sound-alike words might be erroneously placed despite reviewing the note for accuracy. Errors in dictation may reflect use of voice recognition software and not all errors in line fisher may have been detected prior to signing. [...] POC-GLUCOSE 136 (H) 70 - 110 mg/dL [employer] Attendant [id number] Basic Metabolic Panel Status: Abnormal Collection Time: [...] POC-GLUCOSE 137 (H) 70 - 110 mg/dL [employer] Room Attendant [id number] ECG 12 lead Status: None (In process) Collection Time: 12/04/24 8:08 PM Result Value Ref Range SYSTOLIC BLOOD PRESSURE (MCT) 133 mmHg DIASTOLIC BLOOD PRESSURE (MCT) 61 mmHg VENTRICULAR RATE EKG/MIN 85 BPM ATRIAL RATE (MCT) 85 BPM MA Interval 140 ms QRS-INTERVAL (MSEC) 94 ms QT Interval 426 ms QTC Interval 506 ms P [place] 44 degrees R AXIS (MCT) 27 degrees T Wave [place] -27 degrees [place] Diagnosis Normal sinus rhythm Nonspecific T wave abnormality Abnormal ECG When compared with ECG of 04-DEC-2024 03:25, QT has lengthened Glucose, Nova Meter Status: Abnormal Collection Time: 12/04/24 10:20 PM Result Value Ref Range POC-GLUCOSE 147 (H) 70 - 110 mg/dL [employer] Attendant [id number] Hemoglobin Status: Abnormal Collection Time: 12/04/24 11:54 [...] on file. History of Present Illness: Mary Croonel is a 64 y.o. female, admitted on: 11/30/2024 1:43 AM. presented to [facility] with swollen abdomen, abdominal discomfort and bilateral lower extremity pitting edema. Patient's BUN/creatinine elevated, and patient subsequently transferred to [facility] for hepatorenal syndrome evaluation. Admits to [...] albumin human 25% 25 g intravenous Q6H [facility] amiodarone 150 mg intravenous Once atorvastatin 20 mg oral Every Night 20 mg at 12/03/24 213 cefTRIAXone 2 g intravenous Q24H IVPB Stopped [...] IV 25 g 25 g intravenous Q6H [facility] Timothy Bai MD albuterol 2.5 mg /3 [...] Timothy Bai MD 50,000 Units at 11/30/24 145 gabapentin (NEURONTIN) capsule 300 mg 300 mg oral TID Hill Boo MD 300 mg at 12/04/24 0739 [...] Daily MARIAN Hurtado MD 3 Units at 12/04/24 0704 lactulose (CHRONULAC) 10 gram/15 mL solution 10 g 10 g oral TID Timothy Bia MD 10 g at 12/04/24 0738 melatonin tablet 3 mg 3 mg oral Every Night PRN Huey Hurtado MD ondansetron (ZOFRAN-ODT) disintegrating tablet 4 mg 4 mg oral Q8H PRN Huey Hurtado MD Or ondansetron (ZOFRAN) injection 4 mg 4 mg intravenous Q8H PRN Huey Hurtado MD pantoprazole (PROTONIX) injection 40 mg 40 mg intravenous BID Timohty Bai MD 40 mg at 12/04/24 0739 [Held by provider] phenylephrine (SILVIA-SYNEPHRINE) 40 mg in sodium chloride 0.9 % (NS) 250 mL infusion 20-260 mcg/min intravenous Titrated Timothy Bai MD Stopped at 12/04/24 1039 prochlorperazine (COMPAZINE) injection 10 mg 10 mg intravenous Q6H PRN Huey Hurtado MD rifAXIMin (XIFAXAN) tablet 550 mg 550 mg oral BID Destiney B ÁNGEL Llanes 550 mg at 12/04/24 0739 sodium chloride [...] Culture And Stain AFB Culture And Stain [facility] Non-Press Operator Assistant Cytology [facility] Non-Press Operator Assistant Cytology DIFFERENTIAL, BODY FLUID DIFFERENTIAL, BODY FLUID Body Fluid/CSF - Path Review () Body Fluid/CSF - Path Review () [facility] BONE MARROW SMEAR, ASPIRATION, AND STAIN [facility] BONE MARROW SMEAR, ASPIRATION, AND [...] BODY REMOVAL; Surgeon: Scott Daley MD; Location: [facility]; Service: Gastroenterology; Laterality: N/A; Allergies: No [...] Normal range of motion. Integumentary: Warm, Dry, [place]. Neurologic: No obvious focal deficit Psychiatric: Cooperative, Appropriate mood & affect. Labs, Imaging, and Other Studies: Echo Results (last 7 days) Procedure Component Value Units Date/Time ECHO COMPLETE (DOPPLER / COLOR) W OR WO CONTRAST [[id number]] Collected: 11/30/24 8626 Order Status: Completed Updated: 11/30/24 1041 Narrative: TRANSTHORACIC ECHOCARDIOGRAPHY REPORT Demographics Patient Name: RIN JONES : 1960 Age: 64 year(s) Corporate ID Number: [id number] Gender Female Manager Code: Giovanna Rock Height: 67 inches [facility] Referring Physician: HUEY HURTADO Weight: 225 pounds Interpreting JESSICA RAYMOND MD BMI: 35.24 kg/m^2 Physician: Date of Service: 11/30/2024 Blood Pressure: 118/59 mmHg Room Number: 579 Type of Study: TTE procedure: ECHO COMPLETE (DOPPLER / COLOR) W OR WO CONTRAST. Patient Status: Routine IP [facility] History/Tech Notes: Indication: [...] 1.35 m/s E/A ratio: 0.97 m/s Volume ydumqgucm792.99 LV length: 8.51 cm ml Volume ogfnxajq40.96 ml LVOT diameter: 1.79 cm Normal sized [...] Valve TR velocity: 2.51 m/s TR gradient: 25.01921 mmHg Estimated RAP: 3 mmHg RVSP: 28.12 [...] (DOPPLER / COLOR) W OR WO CONTRAST [[id number]] Collected: 11/30/24724 Order Status: Completed Updated: 11/30/24 104 Narrative: TRANSTHORACIC ECHOCARDIOGRAPHY REPORT Demographics Patient Name: RIN JONES : 1960 Age: 64 year(s) Corporate ID Number: [id number] Gender Female Manager Code: Giovanna Rock Height: 67 inches [facility] Referring Physician: HUEY HURTADO Weight: 225 pounds [...] .99 LV length: 8.51 cm ml Volume gdjojwkd48.96 ml LVOT diameter: 1.79 cm Normal sized [...] Valve TR velocity: 2.51 m/s TR gradient: 25.13407 mmHg Estimated RAP: 3 mmHg RVSP: 28.12 [...] imaging. Assessment and Plan: *Paroxysmal Atrial Fib [id number] of 2 also have some wide-complex tachycardia [...] 97 BPM ATRIAL RATE (MCT) 97 BPM MA Interval 150 ms QRS-INTERVAL (MSEC) 88 ms QT Interval 362 ms QTC Interval 459 ms P [place] 40 degrees R AXIS (MCT) 8 degrees T Wave [place] -8 degrees [place] Diagnosis Normal sinus rhythm Normal ECG No previous ECGs available Confirmed by DEYSI FOSS M.D. ([id number]) on 12/03/2024 5:59:01 PM Glucose, Nova Meter Status: Abnormal Collection Time: 12/03/24 10:45 AM Result Value Ref Range POC-GLUCOSE 156 (H) 70 - 110 mg/dL [employer] [id number] ECG 12 lead Status: None Collection Time: 12/03/24 2:16 PM Result Value Ref Range VENTRICULAR RATE EKG/MIN 136 BPM ATRIAL RATE (MCT) 73 BPM QRS-INTERVAL (MSEC) 88 ms QT Interval 304 ms QTC Interval 457 ms R AXIS (MCT) -11 degrees T Wave [place] -58 degrees [place] Diagnosis Atrial fibrillation with rapid ventricular response Possible Anterolateral infarct , age undetermined Possible abberancy Confirmed by DEYSI FOSS M.D. ([id number]) on 12/03/2024 5:58:45 PM Glucose, Nova Meter Status: Abnormal Collection Time: 12/03/24 5:19 PM Result Value Ref Range POC-GLUCOSE 146 (H) 70 - 110 mg/dL [employer] [id number] Glucose, Nova Meter Status: Abnormal Collection Time: 12/03/24 9:41 PM Result Value Ref Range POC-GLUCOSE 146 (H) 70 - 110 mg/dL [employer] Attendant [id number] Hemoglobin Status: Abnormal Collection Time: 12/04/24 1:04 AM Result Value Ref Range Hemoglobin 9.0 (L) 11.2 - 15.7 GM/DL ECG 12 lead Status: None (In process) Collection Time: 12/04/24 3:25 AM Result Value Ref Range SYSTOLIC BLOOD PRESSURE (MCT) 165 mmHg DIASTOLIC BLOOD PRESSURE (MCT) 77 mmHg VENTRICULAR RATE EKG/MIN 80 BPM ATRIAL RATE (MCT) 80 BPM MA Interval 154 ms QRS-INTERVAL (MSEC) 76 ms QT Interval 380 ms QTC Interval 438 ms P [place] 47 degrees R AXIS (MCT) 44 degrees T Wave [place] -30 degrees [place] Diagnosis Normal sinus rhythm Low voltage QRS [...] POC-GLUCOSE 155 (H) 70 - 110 mg/dL [employer] Attendant [id number] Blood gas, arterial Status: Abnormal Collection Time: [...] ARTERIAL 8.6 (L) 12.0 - 18.0 g/dL [facility] COLLECTION SITE Right Brachial Arterial Puncture Yes Blood Gas O2 Delivery Device Cannula Oxygen Flow Rate 3 Blood Gas PT Temperature C 37.0 Sen's Test Not Applicable Critical Values Notification Critical Blood gas called to DAYANARA MATIAS . Results acknowledged/read back to [id number] and confirmed on 12/04/2024 07:09 ABG Number [...] history as below. She initially presented to [facility] with swollen abdomen, abdominal discomfort, and bilateral lower extremity pain. Her creatinine was elevated and as a result, she was transferred to [facility] for he patorenal syndrome. Upon arrival here, [...] BODY REMOVAL; Surgeon: Scott Daley MD; Location: [facility]; Service: Gastroenterology; Laterality: N/A; Allergies: No [...] 97 BPM ATRIAL RATE (MCT) 97 BPM MA Interval 150 ms QRS-INTERVAL (MSEC) 88 ms QT Interval 362 ms QTC Interval 459 ms P [place] 40 degrees R AXIS (MCT) 8 degrees T Wave [place] -8 degrees [place] Diagnosis Normal sinus rhythm Normal ECG No previous ECGs available Confirmed by DEYSI FOSS M.D. ([id number]) on 12/03/2024 5:59:01 PM Glucose, Nova Meter Status: Abnormal Collection Time: 12/03/24 10:45 AM Result Value Ref Range POC-GLUCOSE 156 (H) 70 - 110 mg/dL [employer] Att[facility] [id number] ECG 12 lead Status: None Collection Time: 12/03/24 2:16 PM Result Value Ref Range VENTRICULAR RATE EKG/MIN 136 BPM ATRIAL RATE (MCT) 73 BPM QRS-INTERVAL (MSEC) 88 ms QT Interval 304 ms QTC Interval 457 ms R AXIS (MCT) -11 degrees T Wave [place] -58 degrees [place] Diagnosis Atrial fibrillation with rapid ventricular response Possible Anterolateral infarct , age undetermined Possible abberancy Confirmed by DEYSI FOSS M.D. ([id number]) on 12/03/2024 5:58:45 PM Glucose, Nova Meter Status: Abnormal Collection Time: 12/03/24 5:19 PM Result Value Ref Range POC-GLUCOSE 146 (H) 70 - 110 mg/dL [employer] [facility] [id number] Glucose, Nova Meter Status: Abnormal Collection Time: 12/03/24 9:41 PM Result Value Ref Range POC-GLUCOSE 146 (H) 70 - 110 mg/dL [employer] [facility] [id number] Hemoglobin Status: Abnormal Collection Time: 12/04/24 1:04 AM Result Value Ref Range Hemoglobin 9.0 (L) 11.2 - 15.7 GM/DL ECG 12 lead Status: None (In process) Collection Time: 12/04/24 3:25 AM Result Value Ref Range SYSTOLIC BLOOD PRESSURE (MCT) 165 mmHg DIASTOLIC BLOOD PRESSURE (MCT) 77 mmHg VENTRICULAR RATE EKG/MIN 80 BPM ATRIAL RATE (MCT) 80 BPM MA Interval 154 ms QRS-INTERVAL (MSEC) 76 ms QT Interval 380 ms QTC Interval 438 ms P [place] 47 degrees R AXIS (MCT) 44 degrees T Wave [place] -30 degrees [place] Diagnosis Normal sinus rhythm Low voltage QRS [...] POC-GLUCOSE 155 (H) 70 - 110 mg/dL [employer] [id number] Blood gas, arterial Status: Abnormal Collection Time: [...] ARTERIAL 8.6 (L) 12.0 - 18.0 g/dL [facility] COLLECTION SITE Right Brachial Arterial Puncture Yes Blood Gas O2 Delivery Device Cannula Oxygen Flow Rate 3 Blood Gas PT Temperature C 37.0 Sen's Test Not Applicable Critical Values Notification Critical Blood gas called to DAYANARA MATIAS . Results acknowledged/read back to [id number] and confirmed on 12/04/2024 07:09 ABG Number of Draw Attempts 1 FIO2 Blood Gas Temperature Corrected Results No No Radiology Radiology Results (last day) Procedure Component Value Units Date/Time XR chest AP portable [[id number]] Resulted: 12/04/24 075 Order Status: Sent Updated: 12/04/24 075 XR chest AP portable [[id number]] Collected: 12/03/241805 Order Status: Completed Updated: 12/03/241807 Narrative: PORTABLE CHEST 12/03/2024 3:53 PM HISTORY: [...] Procedure Component Value Units Date/Time Anaerobic Culture [[id number]] Collected: 11/30/24 160 Order Status: Completed Specimen: Peritoneal Fluid from Body Fluid Updated: 12/04/24 0754 Result No Anaerobic growth Narrative: Specimen Description: peritoneal fluid Blood Culture [[id number]] Collected: 11/30/24 0340 Order Status: Completed Specimen: Blood from Arm, Left Updated: 12/04/24 0501 Result No growth in 4 days Blood Culture [[id number]] Collected: 11/30/24 0342 Order Status: Completed Specimen: Blood from Arm, Right Updated: 12/04/24 0501 Result No growth in 4 days Body Fluid Culture + Gram Stain [[id number]] Collected: 11/30/24 160 Order Status: Completed Specimen: Peritoneal Fluid from Body Fluid Updated: 12/03/24 0907 Result No growth Gram Stain Result No organisms seen No cells seen Narrative: Specimen Description: peritoneal fluid Body Fluid/CSF - Path Review (SJ) [[id number]] Collected: 11/30/24 160 Order Status: Completed Specimen: Peritoneal Fluid from Body Fluid Updated: 12/03/24 0654 SENT TO PATHOLOGY FOR REVIEW Yes Scan Result Mesothelial cells. MD German 12/02/2024 AFB Culture And Stain [[id number]] Collected: 11/30/24 160 Order Status: Completed Specimen: Peritoneal Fluid from Body Fluid Updated: 12/01/24 1410 AFB Smear No acid fast bacilli seen Narrative: Specimen Description: peritoneal fluid Glucose, body fluid [[id number]] Collected: 11/30/24 160 Order Status: Completed Specimen: Body Fluid from Peritoneal Fluid Updated: 12/01/24 0710 Glucose, Body Fluid 107 mg/dL BODY FLUID TYPE Peritoneal Narrative: This test has been modified from the engineering surveyor's instructions and its performance characteristics were determined by the laboratory. The reference intervals and other method performance specifications are unavailable for this test. It is recommended to interpret body fluid concentrations in comparison with the corresponding serum or plasma concentrations and to integrate test results into the clinical context. Protein, body fluid [[id number]] Collected: 11/30/24 160 Order Status: Completed Specimen: Body Fluid from Peritoneal Fluid Updated: 12/01/24 0710 Protein, Fluid 1.9 g/dL BODY FLUID TYPE Peritoneal Narrative: This test has been modified from the engineering surveyor's instructions and its performance characteristics were determined by the laboratory. The reference intervals and other method performance specifications are unavailable for this test. It is recommended to interpret body fluid concentrations in comparison with the corresponding serum or plasma concentrations and to integrate test results into the clinical context. Urine Culture [[id number]] Collected: 11/30/24 1135 Order Status: Completed Specimen: Urine, Clean Catch Updated: 12/01/24 0649 Result Recollect Specimen - 3 or more organisms suggests contamination Body fluid cell count with differential [[id number]] (Abnormal) Collected: 11/30/241602 Order Status: Completed Specimen: [...] fluids are not defined. DIFFERENTIAL, BODY FLUID [[id number]] Collected: 11/30/241602 Order Status: Completed Specimen: Peritoneal Fluid from Body Fluid Updated: 11/30/242048 Neutrophils Fluid 5 % Lymphocytes Fluid 46 % Unidentified Mononuclear Cells BF 49 % Lactate dehydrogenase (LDH), body fluid [[id number]] Collected: 11/30/241602 Order Status: Completed Specimen: Peritoneal Fluid from Body Fluid Updated: 11/30/24 1819 LDH, Fluid 71 U/L BODY FLUID TYPE Peritoneal Narrative: This test has been modified from the engineering surveyor's instructions and its performance characteristics were determined by the laboratory. The reference intervals and other method performance specifications are unavailable for this test. It is recommended to interpret body fluid concentrations in comparison with the corresponding serum or plasma concentrations and to integrate test results into the clinical context. Fungus Culture W/ROSA MARIA Or Nimisha Ink [[id number]] Collected: 05/06/25 1603 Order Status: Completed Specimen: Peritoneal Fluid from Body Fluid Updated: 11/30/24 1754 ROSA MARIA Prep No fungal elements seen Narrative: Specimen Description: peritoneal fluid Total Protein, Body Fluid(SENDOUT) [[id number]] Collected: 11/30/24 1603 Order Status: Canceled Specimen: Peritoneal Fluid from Body Fluid Updated: 11/30/24 1634 Glucose Body Fluid(SENDOUT) [[id number]] Collected: 11/30/24 1603 Order Status: Canceled Specimen: Peritoneal Fluid from Body Fluid Updated: 11/30/24 1634 Urine Culture [[id number]] Collected: 11/30/24 1135 Order Status: Canceled Specimen: [...] and lisinopril. Per nephrology there is no DYNAMITE RECLAIMER indication at this time. Ultrasound renal on [...] multidisciplinary team including nurse practitioner, nurse, RT, car carder, pharmacist, and case management during multidisciplinary round. I Dr.Hazim Jeramy MD, have personally evaluated the patient and performed a [id number] diagnostic evaluation on this patient; I have Obtained history, performed physical examination, reviewed laboratory studies. I have reviewed images independent of radiologist. I have actively directed the medical care, formulated diagnosis, and the plan of care. Patient requires a high complexity of decision making for assessment. Voice line fisher technology (NurseGrid) is used for dictation of this note and sound-alike words might be erroneously placed despite reviewing the note for accuracy. Errors in dictation may reflect use of voice recognition software and not all errors in line fisher may have been detected prior to signing. [...] Ext: +++ Pedal edema , no cyanosis DIRECTOR OF PHOTOGRAPHY: Alert, No focal deficit noted grossly Psy: [...] 97 BPM ATRIAL RATE (MCT) 97 BPM MA Interval 150 ms QRS-INTERVAL (MSEC) 88 ms QT Interval 362 ms QTC Interval 459 ms P [place] 40 degrees R AXIS (MCT) 8 degrees T Wave [place] -8 degrees [place] Diagnosis Normal sinus rhythm Normal ECG No previous ECGs available Confirmed by DEYSI FOSS M.D. ([id number]) on 12/03/2024 5:59:01 PM Glucose, Nova Meter Status: Abnormal Collection Time: 12/03/24 10:45 AM Result Value Ref Range POC-GLUCOSE 156 (H) 70 - 110 mg/dL [employer] [facility] [id number] ECG 12 lead Status: None Collection Time: 12/03/24 2:16 PM Result Value Ref Range VENTRICULAR RATE EKG/MIN 136 BPM ATRIAL RATE (MCT) 73 BPM QRS-INTERVAL (MSEC) 88 ms QT Interval 304 ms QTC Interval 457 ms R AXIS (MCT) -11 degrees T Wave [place] -58 degrees [place] Diagnosis Atrial fibrillation with rapid ventricular response Possible Anterolateral infarct , age undetermined Possible abberancy Confirmed by DEYSI FSOS M.D. ([id number]) on 12/03/2024 5:58:45 PM Glucose, Nova Meter Status: Abnormal Collection Time: 12/03/24 5:19 PM Result Value Ref Range POC-GLUCOSE 146 (H) 70 - 110 mg/dL [employer] [facility] [id number] Glucose, Nova Meter Status: Abnormal Collection Time: 12/03/24 9:41 PM Result Value Ref Range POC-GLUCOSE 146 (H) 70 - 110 mg/dL [employer] [facility] [id number] Hemoglobin Status: Abnormal Collection Time: 12/04/24 1:04 AM Result Value Ref Range Hemoglobin 9.0 (L) 11.2 - 15.7 GM/DL ECG 12 lead Status: None (In process) Collection Time: 12/04/24 3:25 AM Result Value Ref Range SYSTOLIC BLOOD PRESSURE (MCT) 165 mmHg DIASTOLIC BLOOD PRESSURE (MCT) 77 mmHg VENTRICULAR RATE EKG/MIN 80 BPM ATRIAL RATE (MCT) 80 BPM MA Interval 154 ms QRS-INTERVAL (MSEC) 76 ms QT Interval 380 ms QTC Interval 438 ms P [place] 47 degrees R AXIS (MCT) 44 degrees T Wave [place] -30 degrees [place] Diagnosis Normal sinus rhythm Low voltage QRS [...] POC-GLUCOSE 155 (H) 70 - 110 mg/dL [employer] [facility] [id number] Blood gas, arterial Status: Abnormal Collection Time: [...] ARTERIAL 8.6 (L) 12.0 - 18.0 g/dL [facility] COLLECTION SITE Right Brachial Arterial Puncture Yes Blood Gas O2 Delivery Device Cannula Oxygen Flow Rate 3 Blood Gas PT Temperature C 37.0 Sen's Test Not Applicable Critical Values Notification Critical Blood gas called to DAYANARA MATIAS . Results acknowledged/read back to [id number] and confirmed on 12/04/2024 07:09 ABG Number [...] 2306 12/02/24 0504 12/02/24 0338 12/01/24 0537 12/01/24 0406 12/01/24 0405 NA meq/L -- -- 143 -- -- [...] Intake/Output Summary (Last 24 hours) at 12/04/2024 0882 Last data filed at 12/04/2024 0100 Gross [...] renal function - No emergent need of DYNAMITE RECLAIMER - Monitor H/H and transfuse for Hgb [...] Ext: +++ Pedal edema , no cyanosis DIRECTOR OF PHOTOGRAPHY: Alert, No focal deficit noted grossly Psy: Cooperative Labs: Results for orders placed or performed during the hospital encounter of 11/30/24 (from the past 24 hours) Glucose, Nova Meter Status: Abnormal Collection Time: 12/02/24 5:18 PM Result Value Ref Range POC-GLUCOSE 128 (H) 70 - 110 mg/dL [employer] [facility] [id number] Hemoglobin Status: Abnormal Collection Time: 12/02/24 6:03 PM Result Value Ref Range Hemoglobin 9.1 (L) 11.2 - 15.7 GM/DL Glucose, Nova Meter Status: Abnormal Collection Time: 12/02/24 8:06 PM Result Value Ref Range POC-GLUCOSE 144 (H) 70 - 110 mg/dL [employer] [facility] Att[facility] [id number] Hemoglobin Status: Abnormal Collection Time: 12/02/24 11:06 PM Result Value Ref Range Hemoglobin 8.9 (L) 11.2 - 15.7 GM/DL Glucose, Nova Meter Status: Abnormal Collection Time: 12/03/24 1:10 AM Result Value Ref Range POC-GLUCOSE 164 (H) 70 - 110 mg/dL [employer] [facility] [id number] Glucose, Nova Meter Status: Abnormal Collection Time: 12/03/24 1:12 AM Result Value Ref Range POC-GLUCOSE 168 (H) 70 - 110 mg/dL [employer] [facility] Attendant [id number] Glucose, Nova Meter Status: Abnormal Collection Time: 12/03/24 5:13 AM Result Value Ref Range POC-GLUCOSE 142 (H) 70 - 110 mg/dL [employer] [facility] [id number] Magnesium Status: Normal Collection Time: 12/03/24 7:39 [...] 97 BPM ATRIAL RATE (MCT) 97 BPM MA Interval 150 ms QRS-INTERVAL (MSEC) 88 ms QT Interval 362 ms QTC Interval 459 ms P [place] 40 degrees R AXIS (MCT) 8 degrees T Wave [place] -8 degrees [place] Diagnosis Normal sinus rhythm Normal ECG No previous ECGs available Glucose, Nova Meter Status: Abnormal Collection Time: 12/03/24 10:45 AM Result Value Ref Range POC-GLUCOSE 156 (H) 70 - 110 mg/dL [employer] [facility] Attendant [id number] ECG 12 lead Status: None (In process) Collection Time: 12/03/24 2:16 PM Result Value Ref Range VENTRICULAR RATE EKG/MIN 136 BPM ATRIAL RATE (MCT) 73 BPM QRS-INTERVAL (MSEC) 88 ms QT Interval 304 ms QTC Interval 457 ms R AXIS (MCT) -11 degrees T Wave [place] -58 degrees [place] Diagnosis Atrial fibrillation with rapid ventricular response Possible Anterolateral infarct , age undetermined Abnormal ECG When compared with ECG of 03-DEC-2024 10:39, Atrial fibrillation has replaced Sinus rhythm CT bone marrow biopsy Narrative: CT GUIDED BONE MARROW ASPIRATION AND CORE BIOPSY. HISTORY: Pancytopenia. ATTENDING RADIOLOGIST: Dr. Haseeb Gil. PHYSICIAN CONCRETE WALL GRINDER OPERATOR: Sandra Ramsey PA-C PROCEDURE: After informed consent [...] renal function - No emergent need of DYNAMITE RECLAIMER - Monitor H/H and transfuse for Hgb less than 7.0 * Brandan Kerr, PT - 12/03/2024 2:16 PM EDT Images from the original note were not included. Inpatient Physical Therapy Attempt to Treat Patient Name: Mary Coronel Birthday: 1960 Date of Attempt: 12/03/2024 Time: [id number]. Gathered subjective history from patient and assessed vitals. Following this, nurse entered room reporting patient was in AFIB with RVR and requested PT hold evaluation at this time. PT will continueto follow. Pt had mobilized earlier this date with OT. Electronically signed by Brandan Kerr, PT - 12/03/2024 - 2:16 PM EDT * Destiney Llanes, PARENT TRAINER - 12/03/2024 10:12 AM EDT Name: Mary Coronel Admit Date: 11/30/2024 LOS: 3 days Location:[id number] PCP on file: [facility] Find-a-Doc Principal Problem: Anasarca ASSESSMENT [...] Dr. Law Cote on December 07 in [place], [place]. -No evidence of SBP -Continue Lactulose/Xifaxan [...] POC-GLUCOSE 112 (H) 70 - 110 mg/dL [employer] [facility] [id number] Glucose, Nova Meter Status: Abnormal Collection Time: 12/02/24 5:18 PM Result Value Ref Range POC-GLUCOSE 128 (H) 70 - 110 mg/dL [employer] Attendant [id number] Hemoglobin Status: Abnormal Collection Time: 12/02/24 6:03 PM Result Value Ref Range Hemoglobin 9.1 (L) 11.2 - 15.7 GM/DL Glucose, Nova Meter Status: Abnormal Collection Time: 12/02/24 8:06 PM Result Value Ref Range POC-GLUCOSE 144 (H) 70 - 110 mg/dL [employer] Attendant [id number] Hemoglobin Status: Abnormal Collection Time: 12/02/24 11:06 PM Result Value Ref Range Hemoglobin 8.9 (L) 11.2 - 15.7 GM/DL Glucose, Nova Meter Status: Abnormal Collection Time: 12/03/24 1:10 AM Result Value Ref Range POC-GLUCOSE 164 (H) 70 - 110 mg/dL [employer] Attendant [id number] Glucose, Nova Meter Status: Abnormal Collection Time: 12/03/24 1:12 AM Result Value Ref Range POC-GLUCOSE 168 (H) 70 - 110 mg/dL [employer] [facility] Attendant [id number] Glucose, Nova Meter Status: Abnormal Collection Time: 12/03/24 5:13 AM Result Value Ref Range POC-GLUCOSE 142 (H) 70 - 110 mg/dL [employer] [facility] Attendant [id number] Magnesium Status: Normal Collection Time: 12/03/24 7:39 [...] Value Units Date/Time CT bone marrow biopsy [[id number]] Collected: 12/02/24 1524 Order Status: Completed Updated: 12/02/24 1556 Narrative: CT GUIDED BONE MARROW ASPIRATION AND CORE BIOPSY. HISTORY: Pancytopenia. ATTENDING RADIOLOGIST: Dr. Haseeb Gil. PHYSICIAN CONCRETE WALL GRINDER OPERATOR: Sandra Ramsey PA-C PROCEDURE: After informed consent [...] Transcribed by Sandra Ramsey PA-C. Ultrasound liver [[id number]] Collected: 11/30/241642 Order Status: Completed Updated: 11/30/241654 [...] and dictated by SABINE Yang. US paracentesis [[id number]] Collected: 11/30/24 1637 Order Status: Completed Updated: 11/30/241654 Narrative: ULTRASOUND-GUIDED PARACENTESIS HISTORY: Ascites ATTENDING PHYSICIAN: Dr. Haseeb Gil PHYSICIAN CONCRETE WALL GRINDER OPERATOR: Gabriel Velasco PA-C FINDINGS: After informed consent [...] by Gabriel Velasco PA-C. Ultrasound renal limited [[id number]] Collected: 11/30/24 1646 Order Status: Completed Updated: 11/30/24 1649 Narrative: RENAL ULTRASOUND HISTORY: Renal failure PROCEDURE: [...] Ronnell Tom MD XR chest AP portable [[id number]] Collected: 11/30/24 1215 Order Status: Completed Updated: [...] AM Result Value Ref Range Issue Date/Time [id number] Product Identification Red Blood Cells Product Code [id number] Status Information Transfused Unit Number [id number] Blood Type 5100 Cross Match Results Compatible Glucose, Nova Meter Status: Abnormal Collection Time: 12/02/24 12:51 PM Result Value Ref Range POC-GLUCOSE 112 (H) 70 - 110 mg/dL [employer] Attendant [id number] Glucose, Nova Meter Status: Abnormal Collection Time: 12/02/24 5:18 PM Result Value Ref Range POC-GLUCOSE 128 (H) 70 - 110 mg/dL [employer] Attendant [id number] Hemoglobin Status: Abnormal Collection Time: 12/02/24 6:03 PM Result Value Ref Range Hemoglobin 9.1 (L) 11.2 - 15.7 GM/DL Glucose, Nova Meter Status: Abnormal Collection Time: 12/02/24 8:06 PM Result Value Ref Range POC-GLUCOSE 144 (H) 70 - 110 mg/dL [employer] [facility] Attendant [id number] Hemoglobin Status: Abnormal Collection Time: 12/02/24 11:06 PM Result Value Ref Range Hemoglobin 8.9 (L) 11.2 - 15.7 GM/DL Glucose, Nova Meter Status: Abnormal Collection Time: 12/03/24 1:10 AM Result Value Ref Range POC-GLUCOSE 164 (H) 70 - 110 mg/dL [employer] Attendant [id number] Glucose, Nova Meter Status: Abnormal Collection Time: 12/03/24 1:12 AM Result Value Ref Range POC-GLUCOSE 168 (H) 70 - 110 mg/dL [employer] Attendant [id number] Glucose, Nova Meter Status: Abnormal Collection Time: 12/03/24 5:13 AM Result Value Ref Range POC-GLUCOSE 142 (H) 70 - 110 mg/dL [employer] Attendant [id number] Magnesium Status: Normal Collection Time: 12/03/24 7:39 [...] Pancytopenia. ATTENDING RADIOLOGIST: Dr. Haseeb Gil. PHYSICIAN CONCRETE WALL GRINDER OPERATOR: Sandra Ramsey PA-C PROCEDURE: After informed consent [...] BODY REMOVAL; Surgeon: Scott Daley MD; Location: [facility]; Service: Gastroenterology; Laterality: N/A; General Visit [...] in Afib w/RVR and c/o SOB. EP BEHAVIORAL HEALTH DIRECTOR notified.New orders taken. IV Amio 150mg bolus [...] BODY REMOVAL; Surgeon: Scott Daley MD; Location: [facility]; Service: Gastroenterology; Laterality: N/A; Allergies: Patient [...] Chemistry Component Value Date/Time NA 146 (H) 12/02/2024337 K 4.2 12/02/2024337 CL 118 (H) 12/02/2024337 CO2 19 (L) 12/02/2024337 BUN 55.1 (H) 12/02/2024337 CREATININE 3.55 (H) 12/02/2024337 Component Value Date/Time CALCIUM 7.9 (L) 12/02/2024337 ALKPHOS 49 12/02/2024337 AST 32 12/02/2024337 ALT 8 12/02/2024337 BILITOT 0.9 12/02/2024337 Radiology Results (last 7 days) Procedure Component Value Units Date/Time CT bone marrow biopsy [[id number]] Collected: 12/02/24 152 Order Status: Completed Updated: 12/02/24 152 Narrative: CT GUIDED BONE MARROW ASPIRATION AND CORE BIOPSY. HISTORY: Pancytopenia. ATTENDING RADIOLOGIST: Dr. Haseeb Gil. PHYSICIAN CONCRETE WALL GRINDER OPERATOR: Sandra Ramsey PA-C PROCEDURE: After informed consent [...] by Sandra Ramsey PA-C. Ultrasound renal limited [[id number]] Collected: 11/30/241645 Order Status: Completed Updated: 11/30/241648 [...] dictated by Ronnell Tom MD Ultrasound liver [[id number]] Collected: 11/30/241642 Order Status: Completed Updated: 11/30/241654 [...] and dictated by SABINE Yang. US paracentesis [[id number]] Collected: 11/30/24 163 Order Status: Completed Updated: 11/30/241654 Narrative: ULTRASOUND-GUIDED PARACENTESIS HISTORY: Ascites ATTENDING PHYSICIAN: Dr. Haseeb Gil PHYSICIAN CONCRETE WALL GRINDER OPERATOR: Gabriel Velasco PA-C FINDINGS: After informed consent [...] Gabriel Velasco PA-C. XR chest AP portable [[id number]] Collected: 11/30/241214 Order Status: Completed Updated: 11/30/241221 Narrative: PORTABLE CHEST 11/30/2024 11:29 AM HISTORY: [...] by Marielos Sotelo PA-C. US renal complete [[id number]] Order Status: Canceled Assessment Pancytopenia. She had [...] Physical Therapy Attempt to Treat Patient Name: Mray Coronel Birthday: 1960 Date of Attempt: 12/02/2024 Pt on bedrest per DAYANARA Shepherd. Had biopsy earlier today and is now receiving blood transfusion. PT will follow up as time permits. Electronically signed by Brandan Kerr, PT - 12/02/2024 - 3:32 PM EDT * Destiney Llanes, PARENT TRAINER - 12/02/2024 10:15 AM EDT Name: Mary Coronel Admit Date: 11/30/2024 LOS: 2 days Location:[id number] PCP on file: [facility] Find-a-Doc Principal Problem: Anasarca ASSESSMENT [...] Range POC-GLUCOSE 100 70 - 110 mg/dL [employer] Room Attendant [id number] Hemoglobin Status: Abnormal Collection Time: 12/01/24 3:33 PM Result Value Ref Range Hemoglobin 8.0 (L) 11.2 - 15.7 GM/DL Glucose, Nova Meter Status: Abnormal Collection Time: 12/01/24 4:25 PM Result Value Ref Range POC-GLUCOSE 115 (H) 70 - 110 mg/dL [facility] [id number] Glucose, Nova Meter Status: Abnormal Collection Time: 12/01/24 7:34 PM Result Value Ref Range POC-GLUCOSE 128 (H) 70 - 110 mg/dL [facility] [facility] [id number] Hemoglobin Status: Abnormal Collection Time: 12/02/24 12:04 [...] POC-GLUCOSE 115 (H) 70 - 110 mg/dL [facility] Attendant [id number] Hemoglobin Status: Abnormal Collection Time: 12/02/24 7:40 [...] Product Identification Red Blood Cells Product Code [id number] Status Information Ready for issue Unit Number [id number] Blood Type 5100 Cross Match Results Compatible Radiology Results (last 3 days) Procedure Component Value Units Date/Time Ultrasound liver [[id number]] Collected: 11/30/24 1643 Order Status: Completed Updated: [...] and dictated by SABINE Yang. US paracentesis [[id number]] Collected: 11/30/24 1637 Order Status: Completed Updated: 11/30/241654 Narrative: ULTRASOUND-GUIDED PARACENTESIS HISTORY: Ascites ATTENDING PHYSICIAN: Dr. Haseeb Gil PHYSICIAN CONCRETE WALL GRINDER OPERATOR: Gabriel Velasco PA-C FINDINGS: After informed consent [...] by Gabriel Velasco PA-C. Ultrasound renal limited [[id number]] Collected: 11/30/24 1646 Order Status: Completed Updated: 11/30/24 1649 Narrative: RENAL ULTRASOUND HISTORY: Renal failure PROCEDURE: [...] Ronnell Tom MD XR chest AP portable [[id number]] Collected: 11/30/24 1215 Order Status: Completed Updated: [...] Ext: +++ Pedal edema , no cyanosis DIRECTOR OF PHOTOGRAPHY: Alert, No focal deficit noted grossly Psy: Cooperative Labs: Results for orders placed or performed during the hospital encounter of 11/30/24 (from the past 24 hours) Glucose, Nova Meter Status: None Collection Time: 12/01/24 10:32 AM Result Value Ref Range POC-GLUCOSE 100 70 - 110 mg/dL [facility] [id number] Hemoglobin Status: Abnormal Collection Time: 12/01/24 3:33 PM Result Value Ref Range Hemoglobin 8.0 (L) 11.2 - 15.7 GM/DL Glucose, Nova Meter Status: Abnormal Collection Time: 12/01/24 4:25 PM Result Value Ref Range POC-GLUCOSE 115 (H) 70 - 110 mg/dL [facility] [facility] Attendant [id number] Glucose, Nova Meter Status: Abnormal Collection Time: 12/01/24 7:34 PM Result Value Ref Range POC-GLUCOSE 128 (H) 70 - 110 mg/dL [facility] Att[facility] [id number] Hemoglobin Status: Abnormal Collection Time: 12/02/24 12:04 [...] POC-GLUCOSE 115 (H) 70 - 110 mg/dL [facility] Attendant [id number] Hemoglobin Status: Abnormal Collection Time: 12/02/24 7:40 [...] Ascites ATTENDING PHYSICIAN: Dr. Haseeb Gil PHYSICIAN CONCRETE WALL GRINDER OPERATOR: Gabriel Velasco PA-C FINDINGS: After informed consent [...] 1960 Age: 64 year(s) Corporate ID Number: [id number] Gender Female Manager Code: Gioavnna Pranav Height: 67 inches [facility] Referring Physician: HUEY HURTADO Weight: 225 pounds Interpreting JESSICA RAYMOND MD BMI: 35.24 kg/m^2 Physician: Date of Service: 11/30/2024 Blood Pressure: 118/59 mmHg Room Number: 579 Type of Study: TTE procedure: ECHO COMPLETE (DOPPLER / COLOR) W OR WO CONTRAST. Patient Status: Routine [facility]: Adequate visualization History/Tech Notes: Indication: shortness [...] 1.35 m/s E/A ratio: 0.97 m/s Volume ilxlcvnym757.99 LV length: 8.51 cm ml Volume zawbjtuz16.96 ml LVOT diameter: 1.79 cm Normal sized [...] Valve TR velocity: 2.51 m/s TR gradient: 25.59454 mmHg Estimated RAP: 3 mmHg RVSP: 28.12 [...] renal function - No emergent need of DYNAMITE RECLAIMER - Monitor H/H and transfuse for Hgb [...] Range POC-GLUCOSE 100 70 - 110 mg/dL [facility] [facility] Att[facility] [id number] Hemoglobin Status: Abnormal Collection Time: 12/01/24 3:33 PM Result Value Ref Range Hemoglobin 8.0 (L) 11.2 - 15.7 GM/DL Glucose, Nova Meter Status: Abnormal Collection Time: 12/01/24 4:25 PM Result Value Ref Range POC-GLUCOSE 115 (H) 70 - 110 mg/dL [facility] [employer] Att[facility] [id number] Glucose, Nova Meter Status: Abnormal Collection Time: 12/01/24 7:34 PM Result Value Ref Range POC-GLUCOSE 128 (H) 70 - 110 mg/dL [facility] Att[facility] [id number] Hemoglobin Status: Abnormal Collection Time: 12/02/24 12:04 [...] POC-GLUCOSE 115 (H) 70 - 110 mg/dL [facility] Attendant [id number] Hemoglobin Status: Abnormal Collection Time: 12/02/24 7:40 [...] Ascites ATTENDING PHYSICIAN: Dr. Haseeb Gil PHYSICIAN CONCRETE WALL GRINDER OPERATOR: Gabriel Velasco PA-C FINDINGS: After informed consent [...] 1960 Age: 64 year(s) Corporate ID Number: [id number] Gender Female Manager Code: Giovanna Rock Height: 67 inches [facility] Referring Physician: HUEY HURTADO Weight: 225 pounds [...] 1.35 m/s E/A ratio: 0.97 m/s Volume nxxdrxjyk251.99 LV length: 8.51 cm ml Volume .96 [...] Valve TR velocity: 2.51 m/s TR gradient: 25.63924 mmHg Estimated RAP: 3 mmHg RVSP: 28.12 [...] BODY REMOVAL; Surgeon: Scott Daley MD; Location: [facility]; Service: Gastroenterology; Laterality: N/A; Allergies: Patient [...] Chemistry Component Value Date/Time NA 145 12/01/2024 040 K 4.2 12/01/2024 040 CL 116 (H) 12/01/2024404 CO2 20 (L) 12/01/2024 040 BUN 68.3 (H) 12/01/2024404 CREATININE 4.13 (H) 12/01/2024 0405 Component Value Date/Time CALCIUM 8.0 (L) 12/01/2024 0405 ALKPHOS 61 12/01/2024 0405 AST 26 12/01/2024 0405 ALT 15 12/01/2024 0405 BILITOT 0.5 12/01/2024 0405 Radiology Results (last 7 days) Procedure Component Value Units Date/Time Ultrasound renal limited [[id number]] Collected: 11/30/241645 Order Status: Completed Updated: 11/30/241648 [...] dictated by Ronnell Tom MD Ultrasound liver [[id number]] Collected: 11/30/241642 Order Status: Completed Updated: 11/30/241654 [...] and dictated by SABINE Yang. US paracentesis [[id number]] Collected: 11/30/24 1637 Order Status: Completed Updated: 11/30/24 1655 Narrative: ULTRASOUND-GUIDED PARACENTESIS HISTORY: Ascites ATTENDING PHYSICIAN: Dr. Haseeb Gil PHYSICIAN CONCRETE WALL GRINDER OPERATOR: Gabriel Velasco PA-C FINDINGS: After informed consent [...] Gabriel Velasco PA-C. XR chest AP portable [[id number]] Collected: 11/30/24 1215 Order Status: Completed Updated: [...] by Marielos Sotelo PA-C. US renal complete [[id number]] Order Status: Canceled Assessment Pancytopenia. White blood [...] Range POC-GLUCOSE 102 70 - 110 mg/dL [facility] [id number] Urinalysis, Reflex Microscopic and Culture If Indicated Status: Abnormal Collection Time: 11/30/24 11:35 AM Result Value Ref Range Color, UA Light Yellow Clarity, UA Turbid (A) Clear Specific Cum[place], UA 1.011 1.005 - 1.030 pH, UA [...] Range POC-GLUCOSE 107 70 - 110 mg/dL [facility] [id number] Glucose, Nova Meter Status: None Collection Time: 11/30/24 7:38 PM Result Value Ref Range POC-GLUCOSE 106 70 - 110 mg/dL [facility] [id number] Magnesium Status: Abnormal Collection Time: 12/01/24 4:05 [...] Osmolality Calc 309.8 mOsm/kg CBC - Hemogram (SJ-BKR) Status: Abnormal Collection Time: 12/01/24 4:06 AM [...] AM Result Value Ref Range Issue Date/Time [id number] Product Identification Red Blood Cells Product Code [id number] Status Information Transfused Unit Number [id number] Blood Type 5100 Cross Match Results Compatible Glucose, Nova Meter Status: None Collection Time: 12/01/24 5:37 AM Result Value Ref Range POC-GLUCOSE 107 70 - 110 mg/dL [facility] [id number] Type and Screen Status: None (Preliminary result) Collection Time: 12/01/24 7:08 AM Result Value Ref Range ABO/Rh O Positive Antibody Screen Negative Glucose, Nova Meter Status: None Collection Time: 12/01/24 8:12 AM Result Value Ref Range POC-GLUCOSE 103 70 - 110 mg/dL [facility] Att[facility] [id number] Ultrasound liver Narrative: CLINICAL INDICATION: Abdominal pain. [...] Ascites ATTENDING PHYSICIAN: Dr. Haseeb Gil PHYSICIAN CONCRETE WALL GRINDER OPERATOR: Gabriel Velasco PA-C FINDINGS: After informed consent [...] 1960 Age: 64 year(s) Corporate ID Number: [id number] Gender Female Manager Code: Giovanna Rock Height: 67 inches [facility] Referring Physician: HUEY HURTADO Weight: 225 pounds [...] 1.35 m/s E/A ratio: 0.97 m/s Volume ithqdbffe304.99 LV length: 8.51 cm ml Volume .96 [...] Valve TR velocity: 2.51 m/s TR gradient: 25.96293 mmHg Estimated RAP: 3 mmHg RVSP: 28.12 [...] Ext: +++ Pedal edema , no cyanosis DIRECTOR OF PHOTOGRAPHY: Alert, No focal deficit noted grossly Psy: Cooperative Labs: Results for orders placed or performed during the hospital encounter of 11/30/24 (from the past 24 hours) Glucose, Nova Meter Status: None Collection Time: 11/30/24 10:46 AM Result Value Ref Range POC-GLUCOSE 102 70 - 110 mg/dL [facility] [id number] Urinalysis, Reflex Microscopic and Culture If Indicated Status: Abnormal Collection Time: 11/30/24 11:35 AM Result Value Ref Range Color, UA Light Yellow Clarity, UA Turbid (A) Clear Specific Cum[place], UA 1.011 1.005 - 1.030 pH, UA [...] Range POC-GLUCOSE 107 70 - 110 mg/dL [facility] [facility] Attendant [id number] Glucose, Nova Meter Status: None Collection Time: 11/30/24 7:38 PM Result Value Ref Range POC-GLUCOSE 106 70 - 110 mg/dL [facility] [facility] Attendant [id number] Magnesium Status: Abnormal Collection Time: 12/01/24 4:05 [...] Osmolality Calc 309.8 mOsm/kg CBC - Hemogram (SJ-BKR) Status: Abnormal Collection Time: 12/01/24 4:06 AM [...] AM Result Value Ref Range Issue Date/Time [id number] Product Identification Red Blood Cells Product Code [id number] Status Information Transfused Unit Number [id number] Blood Type 5100 Cross Match Results Compatible Glucose, Nova Meter Status: None Collection Time: 12/01/24 5:37 AM Result Value Ref Range POC-GLUCOSE 107 70 - 110 mg/dL [facility] Attendant [id number] Type and Screen Status: None (Preliminary result) Collection Time: 12/01/24 7:08 AM Result Value Ref Range ABO/Rh O Positive Antibody Screen Negative Glucose, Nova Meter Status: None Collection Time: 12/01/24 8:12 AM Result Value Ref Range POC-GLUCOSE 103 70 - 110 mg/dL [facility] Attendant [id number] Ultrasound liver Narrative: CLINICAL INDICATION: Abdominal pain. [...] Ascites ATTENDING PHYSICIAN: Dr. Haseeb Gil PHYSICIAN CONCRETE WALL GRINDER OPERATOR: Gabriel Velasco PA-C FINDINGS: After informed consent [...] 1960 Age: 64 year(s) Corporate ID Number: [id number] Gender Female Manager Code: Giovanna Rock Height: 67 inches [facility] Referring Physician: HUEY HURTADO Weight: 225 pounds [...] 1.35 m/s E/A ratio: 0.97 m/s Volume vobvxxmkj278.99 LV length: 8.51 cm ml Volume hzxmpvta18.96 ml LVOT diameter: 1.79 cm Normal sized [...] Valve TR velocity: 2.51 m/s TR gradient: 25.58729 mmHg Estimated RAP: 3 mmHg RVSP: 28.12 [...] renal function - No emergent need of DYNAMITE RECLAIMER - Monitor H/H and transfuse for Hgb [...] - 12/01/2024 - 1:38 PM EDT * DAWOOD Gaona/Amada - 11/30/2024 2:31 PM EDT Images from [...] 64 y.o. female admitted on 11/30/2024 with Magdi [R60.1]. Past Medical History: Diagnosis Date Cirrhosis, [...] The patient's fine motor coordination is intact. Zcqedg-cy-xfwv: LUE (3) Minimal Impairment: Able to accomplish [...] in chair, to don socks Outcome Measures [facility] Daily Living Functional Assessment How much [...] (Minimal/Contact guard/Supervision/Setup) 4=None (Modified independent/Independent) The patient's [facility] raw score is 16. The patient currently has 53.32% functional impairment. Clinicians are most likely to recommend inpatient/SNF/intermodal owner operator truck driver care for patients with scores between 6-17, [...] completed bed to chair transfer supported at with CGA. Pt required Max A to [...] prior level of function. The patient's current AMPA score of 16 would indicate that the [...] diabetes, CKD, CAD, arthritis. Patient presented to [facility] with swollen abdomen, abdominal discomfort and bilateral lower extremity pitting edema.Patient's BUN/creatinine elevated, and patient subsequently transferred to [facility] for hepatorenal syndrome evaluation. Admits to [...] days. Patient's niece forced patient to visit [facility] emergency room today she really loves [...] hyperlipidemia, diabetes, CAD, arthritis. Patient presented to [facility] with swollen abdomen, abdominal discomfort and bilateral lower extremity pitting edema. Patient diagnosed with anasarca, and admitted for hepatorenal/temporary dialysis evaluation. Problems as listed below: [facility] labs reviewed prior to current hospitalization: [...] mg IV every 12. CT abdomen/pelvis from [facility] shows ascites. Therefore ordered paracentesis for [...] history as below. She initially presented to [facility] with swollen abdomen, abdominal discomfort, and bilateral lower extremity pain. Her creatinine was elevated and as a result, she was transferred to [facility] for he patorenal syndrome. Upon arrival here, [...] BODY REMOVAL; Surgeon: Scott Daley MD; Location: [facility]; Service: Gastroenterology; Laterality: N/A; Allergies: No [...] POC-GLUCOSE 134 (H) 70 - 110 mg/dL [facility] [facility] Att[facility] [id number] Glucose, Nova Meter Status: Abnormal Collection Time: 12/06/24 7:26 PM Result Value Ref Range POC-GLUCOSE 170 (H) 70 - 110 mg/dL [facility] [facility] Att[facility] [id number] CBC - Hemogram (SJ-BKR) Status: Abnormal Collection [...] POC-GLUCOSE 159 (H) 70 - 110 mg/dL [facility] [facility] Attendant [id number] ECG 12 lead Status: None (In process) Collection Time: 12/07/24 10:29 AM Result Value Ref Range VENTRICULAR RATE EKG/MIN 91 BPM ATRIAL RATE (MCT) 91 BPM MA Interval 142 ms QRS-INTERVAL (MSEC) 88 ms QT Interval 376 ms QTC Interval 462 ms P Nottingham 39 degrees R AXIS (MCT) -3 degrees T Wave [place] 4 degrees [place] Diagnosis Normal sinus rhythm Nonspecific T wave [...] 12.0 - 18.0 g/dL PaO2/FIO2 calculated 203.0 [facility] COLLECTION SITE Right Radial Arterial Puncture Yes Blood Gas PT Temperature C 37.0 Sen's Test Acceptable Critical Values Notification Critical Blood gas called to TRAY LORENZ RN . [place] [id number] and confirmed on 12/07/2024 10:51 ABG Number of Draw Attempts 1 FIO2 21.0 Blood Gas Temperature Corrected Results No No Glucose, Nova Meter Status: Abnormal Collection Time: 12/07/24 10:54 AM Result Value Ref Range POC-GLUCOSE 146 (H) 70 - 110 mg/dL [facility] [facility] Att[facility] [id number] Radiology Radiology Results (last day) Procedure Component Value Units Date/Time XR chest AP portable [[id number]] Resulted: 12/07/24 1353 Order Status: Sent Updated: 12/07/24 1426 Microbiology: Microbiology Results (last 7 days) Procedure Component Value Units Date/Time Anaerobic Culture [[id number]] Collected: 11/30/24 1603 Order Status: Completed Specimen: Peritoneal Fluid from Body Fluid Updated: 12/05/24 0634 Result No Anaerobic growth Narrative: Specimen Description: peritoneal fluid Blood Culture [[id number]] Collected: 11/30/24 0340 Order Status: Completed Specimen: Blood from Arm, Left Updated: 12/05/24 0501 Result No growth in 5 days Blood Culture [[id number]] Collected: 11/30/24 0342 Order Status: Completed Specimen: Blood from Arm, Right Updated: 12/05/24 0501 Result No growth in 5 days Body Fluid Culture + Gram Stain [[id number]] Collected: 11/30/24 1603 Order Status: Completed Specimen: Peritoneal Fluid from Body Fluid Updated: 12/03/24 0907 Result No growth Gram Stain Result No organisms seen No cells seen Narrative: Specimen Description: peritoneal fluid Body Fluid/CSF - Path Review () [[id number]] Collected: 11/30/24 160 Order Status: Completed Specimen: Peritoneal Fluid from Body Fluid Updated: 12/03/24 0654 SENT TO PATHOLOGY FOR REVIEW Yes Scan Result Mesothelial cells. MD German 12/02/2024 AFB Culture And Stain [[id number]] Collected: 11/30/24 160 Order Status: Completed Specimen: Peritoneal Fluid from Body Fluid Updated: 12/01/24 1410 AFB Smear No acid fast bacilli seen Narrative: Specimen Description: peritoneal fluid Glucose, body fluid [[id number]] Collected: 11/30/24 160 Order Status: Completed Specimen: Body Fluid from Peritoneal Fluid Updated: 12/01/24 0710 Glucose, Body Fluid 107 mg/dL BODY FLUID TYPE Peritoneal Narrative: This test has been modified from the engineering surveyor's instructions and its performance characteristics were determined by the laboratory. The reference intervals and other method performance specifications are unavailable for this test. It is recommended to interpret body fluid concentrations in comparison with the corresponding serum or plasma concentrations and to integrate test results into the clinical context. Protein, body fluid [[id number]] Collected: 11/30/24 160 Order Status: Completed Specimen: Body Fluid from Peritoneal Fluid Updated: 12/01/24 0710 Protein, Fluid 1.9 g/dL BODY FLUID TYPE Peritoneal Narrative: This test has been modified from the engineering surveyor's instructions and its performance characteristics were determined by the laboratory. The reference intervals and other method performance specifications are unavailable for this test. It is recommended to interpret body fluid concentrations in comparison with the corresponding serum or plasma concentrations and to integrate test results into the clinical context. Urine Culture [[id number]] Collected: 11/30/24 1135 Order Status: Completed Specimen: Urine, Clean Catch Updated: 12/01/24 0649 Result Recollect Specimen - 3 or more organisms suggests contamination Body fluid cell count with differential [[id number]] (Abnormal) Collected: 11/30/24 1603 Order Status: Completed Specimen: Peritoneal Fluid from Body Fluid Updated: 11/30/24 2049 Appearance Cloudy Color Yellow BODY FLUID TYPE [...] fluids are not defined. DIFFERENTIAL, BODY FLUID [[id number]] Collected: 11/30/241602 Order Status: Completed Specimen: Peritoneal Fluid from Body Fluid Updated: 11/30/24 2049 Neutrophils Fluid 5 % Lymphocytes Fluid 46 % Unidentified Mononuclear Cells BF 49 % Lactate dehydrogenase (LDH), body fluid [[id number]] Collected: 11/30/241602 Order Status: Completed Specimen: Peritoneal Fluid from Body Fluid Updated: 11/30/24 1819 LDH, Fluid 71 U/L BODY FLUID TYPE Peritoneal Narrative: This test has been modified from the engineering surveyor's instructions and its performance characteristics were determined by the laboratory. The reference intervals and other method performance specifications are unavailable for this test. It is recommended to interpret body fluid concentrations in comparison with the corresponding serum or plasma concentrations and to integrate test results into the clinical context. Fungus Culture W/ROSA MARIA Or Nimisha Ink [[id number]] Collected: 11/30/241602 Order Status: Completed Specimen: Peritoneal Fluid from Body Fluid Updated: 11/30/24 1754 ROSA MARIA Prep No fungal elements seen Narrative: Specimen Description: peritoneal fluid Total Protein, Body Fluid(SENDOUT) [[id number]] Collected: 11/30/241602 Order Status: Canceled Specimen: Peritoneal Fluid from Body Fluid Updated: 11/30/24 1634 Glucose Body Fluid(SENDOUT) [[id number]] Collected: 11/30/241602 Order Status: Canceled Specimen: Peritoneal [...] to continue with albumin/diuretics no indication for DYNAMITE RECLAIMER BIPAP / Fio2 50%,ABG in 2 hrs Patient not [...] personally evaluated the patient and performed a hqzf-lp-izmv diagnostic evaluation on this patient; I have reviewed history, performed physical examination, reviewed laboratory studies. , andreviewed images independent of radiologist. I have actively directed the medical care, formulated assessemnt and plan of care. Patient requires a high complexity of decision making for assessment. 46 minutes pulmonary care clinical time was spent. Voice line fisher technology (NurseGrid) is used for dictation of this note and sound-alike words might be erroneously placed despite reviewing the note for accuracy.Errors in dictation may reflect use of voice recognition software and not all errors in line fisher may have been detectedprior to signing * KENNEY Zaragoza - 12/07/2024 10:29 AM EDTAssociated Order(s): IP CONSULT TO CARE COORDINATION Summary: Pending SNF/Rehab Discharge Plan Progress Note [facility] can offer bed for patient, semi-private room. [address]: [address] [place] [address] - about 56 minutes (36 miles) from patient's address. [facility] started precert, 12/07, 10:33. Insurance will require updated PT/OT notes for rehab. Other SNF options: [facility] (over an hour away from home address), [facility], [facility]. Sister is requesting rehab. On 12/06, [...] call Jojo da silva at phone # [phone], received busy tone, unable to reach sister [...] intakes reported. 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 Requested chicken noodle soup for lunch. Agreeable to ONS TID. Past Medical/Surgical History: Past Medical History: Diagnosis Date Cirrhosis, non-alcoholic (HCC) Diabetes mellitus (HCC) Hypertension Past Surgical History: Procedure Laterality Date ESOPHAGOGASTRODUODENOSCOPY (EGD),REMOVAL FOREIGN BODY N/A 12/01/2024 Procedure: EGD, WITH FOREIGN BODY REMOVAL; Surgeon: Scott Daley MD; Location: [facility]; Service: Gastroenterology; Laterality: N/A; Vitals and [...] Daily MARIAN Hurtado MD 3 Units at 12/06/24 1238 [...] with severity: none Energy intake hx: good mining captain (minimal for past 3-4 days) Wt [...] history as below. She initially presented to [facility] with swollen abdomen, abdominal discomfort, and bilateral lower extremity pain. Her creatinine was elevated and as a result, she was transferred to [facility] for he patorenal syndrome. Upon arrival here, [...] BODY REMOVAL; Surgeon: Scott Daley MD; Location: [facility]; Service: Gastroenterology; Laterality: N/A; Allergies: No [...] POC-GLUCOSE 128 (H) 70 - 110 mg/dL [employer] Room Attendant [id number] Hemoglobin Status: Abnormal Collection Time: 12/02/24 6:03 PM Result Value Ref Range Hemoglobin 9.1 (L) 11.2 - 15.7 GM/DL Glucose, Nova Meter Status: Abnormal Collection Time: 12/02/24 8:06 PM Result Value Ref Range POC-GLUCOSE 144 (H) 70 - 110 mg/dL [employer] Room Attendant [id number] Hemoglobin Status: Abnormal Collection Time: 12/02/24 11:06 PM Result Value Ref Range Hemoglobin 8.9 (L) 11.2 - 15.7 GM/DL Glucose, Nova Meter Status: Abnormal Collection Time: 12/03/24 1:10 AM Result Value Ref Range POC-GLUCOSE 164 (H) 70 - 110 mg/dL [facility] Room Attendant [id number] Glucose, Nova Meter Status: Abnormal Collection Time: 12/03/24 1:12 AM Result Value Ref Range POC-GLUCOSE 168 (H) 70 - 110 mg/dL [facility] Room Attendant [id number] Glucose, Nova Meter Status: Abnormal Collection Time: 12/03/24 5:13 AM Result Value Ref Range POC-GLUCOSE 142 (H) 70 - 110 mg/dL [employer] Room Attendant [id number] Magnesium Status: Normal Collection Time: 12/03/24 7:39 [...] 97 BPM ATRIAL RATE (MCT) 97 BPM MA Interval 150 ms QRS-INTERVAL (MSEC) 88 ms QT Interval 362 ms QTC Interval 459 ms P [place] 40 degrees R AXIS (MCT) 8 degrees T Wave [place] -8 degrees [place] Diagnosis Normal sinus rhythm Normal ECG No previous ECGs available Glucose, Nova Meter Status: Abnormal Collection Time: 12/03/24 10:45 AM Result Value Ref Range POC-GLUCOSE 156 (H) 70 - 110 mg/dL [employer] Room Attendant [id number] ECG 12 lead Status: None (In process) Collection Time: 12/03/24 2:16 PM Result Value Ref Range VENTRICULAR RATE EKG/MIN 136 BPM ATRIAL RATE (MCT) 73 BPM QRS-INTERVAL (MSEC) 88 ms QT Interval 304 ms QTC Interval 457 ms R AXIS (MCT) -11 degrees T Wave [place] -58 degrees [place] Diagnosis Atrial fibrillation with rapid ventricular response Possible Anterolateral infarct , age undetermined Abnormal ECG When compared with ECG of 03-DEC-2024 10:39, Atrial fibrillation has replaced Sinus rhythm Radiology Radiology Results (last day) Procedure Component Value Units Date/Time CT bone marrow biopsy [[id number]] Collected: 12/02/24 1524 Order Status: Completed Updated: 12/02/24 1556 Narrative: CT GUIDED BONE MARROW ASPIRATION AND CORE BIOPSY. HISTORY: Pancytopenia. ATTENDING RADIOLOGIST: Dr. Haseeb Gil. PHYSICIAN CONCRETE WALL GRINDER OPERATOR: Sandra Ramsey PA-C PROCEDURE: After informed consent [...] Date/Time Body Fluid Culture + Gram Stain [[id number]] Collected: 11/30/24 1603 Order Status: Completed Specimen: Peritoneal Fluid from Body Fluid Updated: 12/03/24 0907 Result No growth Gram Stain Result No organisms seen No cells seen Narrative: Specimen Description: peritoneal fluid Anaerobic Culture [[id number]] Collected: 11/30/24 160 Order Status: Completed Specimen: Peritoneal Fluid from Body Fluid Updated: 12/03/24 0842 Result No Anaerobic growth Narrative: Specimen Description: peritoneal fluid Body Fluid/CSF - Path Review () [[id number]] Collected: 11/30/24 160 Order Status: Completed Specimen: Peritoneal Fluid from Body Fluid Updated: 12/03/24 0654 SENT TO PATHOLOGY FOR REVIEW Yes Scan Result Mesothelial cells. MD German 12/02/2024 Blood Culture [[id number]] Collected: 11/30/24 0340 Order Status: Completed Specimen: Blood from Arm, Left Updated: 12/03/24 0501 Result No growth in 3 days Blood Culture [[id number]] Collected: 11/30/24 0342 Order Status: Completed Specimen: Blood from Arm, Right Updated: 12/03/24 0501 Result No growth in 3 days AFB Culture And Stain [[id number]] Collected: 11/30/24 160 Order Status: Completed Specimen: Peritoneal Fluid from Body Fluid Updated: 12/01/24 1410 AFB Smear No acid fast bacilli seen Narrative: Specimen Description: peritoneal fluid Glucose, body fluid [[id number]] Collected: 11/30/24 160 Order Status: Completed Specimen: Body Fluid from Peritoneal Fluid Updated: 12/01/24 0710 Glucose, Body Fluid 107 mg/dL BODY FLUID TYPE Peritoneal Narrative: This test has been modified from the engineering surveyor's instructions and its performance characteristics were determined by the laboratory. The reference intervals and other method performance specifications are unavailable for this test. It is recommended to interpret body fluid concentrations in comparison with the corresponding serum or plasma concentrations and to integrate test results into the clinical context. Protein, body fluid [[id number]] Collected: 11/30/24 160 Order Status: Completed Specimen: Body Fluid from Peritoneal Fluid Updated: 12/01/24 0710 Protein, Fluid 1.9 g/dL BODY FLUID TYPE Peritoneal Narrative: This test has been modified from the engineering surveyor's instructions and its performance characteristics were determined by the laboratory. The reference intervals and other method performance specifications are unavailable for this test. It is recommended to interpret body fluid concentrations in comparison with the corresponding serum or plasma concentrations and to integrate test results into the clinical context. Urine Culture [[id number]] Collected: 11/30/24 1135 Order Status: Completed Specimen: Urine, Clean Catch Updated: 12/01/24 0649 Result Recollect Specimen - 3 or more organisms suggests contamination Body fluid cell count with differential [[id number]] (Abnormal) Collected: 11/30/241602 Order Status: Completed Specimen: [...] fluids are not defined. DIFFERENTIAL, BODY FLUID [[id number]] Collected: 11/30/241602 Order Status: Completed Specimen: Peritoneal Fluid from Body Fluid Updated: 11/30/242048 Neutrophils Fluid 5 % Lymphocytes Fluid 46 % Unidentified Mononuclear Cells BF 49 % Lactate dehydrogenase (LDH), body fluid [[id number]] Collected: 11/30/241602 Order Status: Completed Specimen: Peritoneal Fluid from Body Fluid Updated: 11/30/24 1819 LDH, Fluid 71 U/L BODY FLUID TYPE Peritoneal Narrative: This test has been modified from the engineering surveyor's instructions and its performance characteristics were determined by the laboratory. The reference intervals and other method performance specifications are unavailable for this test. It is recommended to interpret body fluid concentrations in comparison with the corresponding serum or plasma concentrations and to integrate test results into the clinical context. Fungus Culture W/ROSA MARIA Or Nimisha Ink [[id number]] Collected: 11/30/24 160 Order Status: Completed Specimen: Peritoneal Fluid from Body Fluid Updated: 11/30/24 1754 ROSA MARIA Prep No fungal elements seen Narrative: Specimen Description: peritoneal fluid Total Protein, Body Fluid(SENDOUT) [[id number]] Collected: 11/30/24 160 Order Status: Canceled Specimen: Peritoneal Fluid from Body Fluid Updated: 11/30/24 1634 Glucose Body Fluid(SENDOUT) [[id number]] Collected: 11/30/24 1603 Order Status: Canceled Specimen: Peritoneal Fluid from Body Fluid Updated: 11/30/24 1634 Urine Culture [[id number]] Collected: 11/30/24 1135 Order Status: Canceled Specimen: [...] and lisinopril. Per nephrology there is no DYNAMITE RECLAIMER indication at this time. Ultrasound renal on [...]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 Co de Phone Number GE MUSE * (ABNORMAL) Glucose, Nova Meter (12/12/2024 5:43 AM EDT) POC-GLUCOSE 149(H) 70 - 110 mg/dL 12/12/2024 5:44 AM EDT [facility] Comment: In the event of poor peripheral blood flow, venous or arterial blood should be used due to the potential of erroneous results. Notified Nurse RBV [facility] [phone] 12/12/2024 5:44 AM EDT [facility] Blood WHOLE BLOOD / Unknown 12/12/2024 5:43 AM EDT 12/12/2024 5:44 AM EDT Narrative [facility] - 12/12/2024 5:44 AM EDT [facility] ID is - [id number] us David Coffman PA-C POINT OF CARE TEST ORDERABLES Final Result Performing Organization Address [facility] Co de Phone Number [facility] [address] [phone] * (ABNORMAL) CBC Scan (12/12/2024 3:47 AM EDT) Platelet Estimate Decreased (A) Adequate 12/12/2024 6:07 AM EDT [facility] RBC Morphology abnormal( A) Normal 12/12/2024 6:07 AM EDT [facility] Anisocytosis 1+ 12/12/2024 6:07 AM EDT [facility] Hypochromia 1+ 12/12/2024 6:07 AM EDT [facility] Macrocytes 1+ 12/12/2024 6:07 AM EDT [facility] Ovalocytes 1+ 12/12/2024 6:07 AM EDT [facility] Poikilocytes 1+ 12/12/2024 6:07 AM EDT [facility] Blood Venipuncture / Unknown 12/12/2024 3:47 AM EDT 12/12/2024 4:40 AM EDT Venkatesh Stephen MD LAB BLOOD ORDERABLES Final Resul t Performing Organization Address [facility]/ZIP Co de Phone Number [facility] [address] [phone] * (ABNORMAL) CBC with automated diff (12/12/2024 3:47 AM EDT) WBC 1.4(LL) 4.0 - 10.0 K/ L 12/12/2024 6:07 AM EDT [facility] RBC 2.39(L) 3.93 - 5.22 M/ L 12/12/2024 6:07 AM EDT [facility] Hemoglobin 7.3(L) 11.2 - 15.7 GM/DL 12/12/2024 6:07 AM EDT [facility] Hematocrit 23.2(L) 34.1 - 44.9 % 12/12/2024 6:07 AM EDT [facility] MCV 97(H) 79 - 95 fL 12/12/2024 6:07 AM EDT [facility] MCH 30.5 25.6 - 32.2 pg 12/12/2024 6:07 AM EDT [facility] MCHC 31.5(L) 32.2 - 35.5 GM/DL 12/12/2024 6:07 AM EDT [facility] RDW 16.7(H) 11.7 - 14.4 % 12/12/2024 6:07 AM EDT [facility] Platelets 43(L) 140 - 375 K/CU MM 12/12/2024 6:07 AM EDT [facility] MPV 11.8 9.4 - 12.3 fL 12/12/2024 6:07 AM EDT [facility] % Neutros 57 34 - 71 % 12/12/2024 6:07 AM EDT [facility] % Lymphs 29 19 - 52 % 12/12/2024 6:07 AM EDT [facility] % Monos 13 5 - 13 % 12/12/2024 6:07 AM EDT [facility] % Eos 1 1 - 6 % 12/12/2024 6:07 AM EDT [facility] % Baso 0 0 - 1 % 12/12/2024 6:07 AM EDT [facility] NRBC Absolute <0.01 0 - 0.012 K/ul 12/12/2024 6:07 AM EDT [facility] # Neutros 0.80(L) 1.56 - 6.13 K/ L 12/12/2024 6:07 AM EDT [facility] # Lymphs 0.41(L) 1.18 - 3.74 K/ L 12/12/2024 6:07 AM EDT [facility] # Monos 0.18(L) 0.24 - 0.86 K/ L 12/12/2024 6:07 AM EDT [facility] # Eos <0.03(L) 0.04 - 0.36 K/ L 12/12/2024 6:07 AM EDT [facility] # Baso <0.03 0.01 - 0.08 K/ L 12/12/2024 6:07 AM EDT [facility] Immature Granulocytes-Re lative 0.70(H) 0.01 - 0.43 % 12/12/2024 6:07 AM EDT [facility] # IG <0.03 0.00 - 0.03 K/uL 12/12/2024 6:07 AM EDT [facility] Blood Venipuncture / Unknown 12/12/2024 3:47 AM EDT 12/12/2024 4:40 AM EDT Narrative [facility] - 12/12/2024 6:07 AM EDT When [...] MD LAB BLOOD ORDERABLES Final Resul t [facility] [address] [phone] * (ABNORMAL) Basic Metabolic Panel (12/12/2024 3:47 AM EDT) Sodium 144 136 - 145 meq/L 12/12/2024 5:16 AM EDT [facility] Potassium 3.4 3.4 - 5.1 meq/L 12/12/2024 5:16 AM EDT [facility] CO2 26 22 - 29 meq/L 12/12/2024 5:16 AM EDT [facility] Chloride 110 98 - 112 meq/L 12/12/2024 5:16 AM EDT [facility] Glucose 140(H) 82 - 115 mg/dL 12/12/2024 5:16 AM EDT [facility] BUN 70.7(H) 9.8 - 20.1 mg/dL 12/12/2024 5:16 AM EDT [facility] Creatinine 2.28(H) 0.57 - 1.11 mg/dL 12/12/2024 5:16 AM EDT [facility] BUN/Creatinine 31(H) 8 - 20 12/12/2024 5:16 AM EDT [facility] Calcium 8.3(L) 8.4 - 10.2 mg/dL 12/12/2024 5:16 AM EDT [facility] Anion Gap 11 4 - 12 12/12/2024 5:16 AM EDT [facility] eGFR (mL/min/1.73m2) 24(L) >=60 mL/min/1.7 3m2 12/12/2024 5:16 AM EDT [facility] Osmolality Calc 309.9 mOsm/kg 5:16 AM EDT [facility] Blood Venipuncture / Unknown 12/12/2024 3:47 AM EDT 12/12/2024 4:41 AM EDT us Venkatesh Stephen MD LAB BLOOD ORDERABLES Final Resul t [facility] [address] [phone] * (ABNORMAL) Glucose, Nova Meter (12/11/2024 7:32 PM EDT) POC-GLUCOSE 159(H) 70 - 110 mg/dL 12/11/2024 7:33 PM EDT [facility] Comment: In the event of poor peripheral blood flow, venous or arterial blood should be used due to the potential of erroneous results. Notified Nurse RBV [facility] [facility] [phone] 12/11/2024 7:33 PM EDT [facility] Blood WHOLE BLOOD / Unknown 12/11/2024 7:32 PM EDT 12/11/2024 7:33 PM EDT [facility] - 12/11/2024 7:33 PM EDT [employer] ID is - [id number] [facility] Andry Coffman PA-C POINT OF CARE TEST ORDERABLES Final Result Performing Organization Address [facility] Phone Number [facility] [address] [place] [address], [facility] [phone] * (ABNORMAL) Glucose, Nova Meter (12/11/2024 4:18 PM EDT) POC-GLUCOSE 156(H) 70 - 110 mg/dL 12/11/2024 4:19 PM EDT [facility] Comment: In the event of poor peripheral blood flow, venous or arterial blood should be used due to the potential of erroneous results. Notified Nurse RBV [facility] [facility] [phone] 12/11/2024 4:19 PM EDT [facility] Blood WHOLE BLOOD / Unknown 12/11/2024 4:18 PM EDT 12/11/2024 4:19 PM EDT [facility] - 12/11/2024 4:19 PM EDT [facility] [facility] [employer] ID is - [id number] [facility] Andry Coffman PA-C POINT OF CARE TEST ORDERABLES Final Result Performing Organization Address [facility] Phone Number [facility] [address] [place] [address], [facility] [phone] * (ABNORMAL) Glucose, Nova Meter (12/11/2024 10:43 AM EDT) POC-GLUCOSE 254(H) 70 - 110 mg/dL 12/11/2024 10:45 AM EDT [facility] Comment: In the event of poor peripheral blood flow, venous or arterial blood should be used due to the potential of erroneous results. Notified Nurse RBV [facility] [facility] [phone] 12/11/2024 10:45 AM EDT [facility] Blood WHOLE BLOOD / Unknown 12/11/2024 10:43 AM EDT 12/11/2024 10:45 AM EDT [facility] - 12/11/2024 10:45 AM EDT [facility] [facility] ID is - [id number] us David Coffman PA-C POINT OF CARE TEST ORDERABLES Final Result [facility] [address] [phone] * ECG 12 lead (12/11/2024 10:29 AM EDT) Pathologist [facility] [place] VENTRICULAR RATE EKG/MIN 85 BPM GE MUSE ATRIAL RATE (MCT) 85 BPM GE MUSE MA Interval 142 ms GE MUSE QRS-INTERVAL (MSEC) 92 ms GE MUSE QT Interval 400 ms GE MUSE QTC Interval 476 ms GE MUSE P [place] 34 degrees GE MUSE R AXIS (MCT) -10 degrees GE MUSE T Wave [place] 57 degrees GE MUSE [place] Diagnosis Normal sinus rhythm Minimal voltage criteria for LVH, may be normal variant Septal infarct (cited on or before 08-DEC-2024) Abnormal ECG When compared with ECG of 10-DEC-2024 10:07, No significant change was found Confirmed by Rakesh OROZCO, [facility] ([id number]) on 12/13/2024 7:30:41 AM GE MUSE 12/11/2024 10:2 9 AM EDT 12/13/2024 7:30 AM EDT Deysi Foss MD ECG ORDERABLES Final Result Performing Organization Address City/[facility]/ZIP Co de Phone Number GE MUSE * (ABNORMAL) Glucose, Nova Meter (12/11/2024 5:15 AM EDT) Pathologist [facility] [place] POC-GLUCOSE 143(H) 70 - 110 mg/dL 12/11/2024 5:16 AM EDT [facility] Comment: In the event of poor peripheral blood flow, venous or arterial blood should be used due to the potential of erroneous results. Notified Nurse JOSE [facility] [facility] [phone] 12/11/2024 5:16 AM EDT [facility] Blood WHOLE BLOOD / Unknown 12/11/2024 5:15 AM EDT 12/11/2024 5:16 AM EDT Narrative [facility] - 12/11/2024 5:16 AM EDT [facility] [facility] ID is - [id number] us Venkatesh Stephen MD POINT OF CARE TEST ORDERABLES Fi nal Result [facility] [address] [phone] * (ABNORMAL) Basic Metabolic Panel (12/11/2024 3:39 AM EDT) Sodium 146(H) 136 - 145 meq/L 12/11/2024 4:25 AM EDT [facility] Potassium 3.7 3.4 - 5.1 meq/L 12/11/2024 4:25 AM EDT [facility] CO2 26 22 - 29 meq/L 12/11/2024 4:25 AM EDT [facility] Chloride 114(H) 98 - 112 meq/L 12/11/2024 4:25 AM EDT [facility] Glucose 154(H) 82 - 115 mg/dL 12/11/2024 4:25 AM EDT [facility] BUN 74.9(H) 9.8 - 20.1 mg/dL 12/11/2024 4:25 AM EDT [facility] Creatinine 2.61(H) 0.57 - 1.11 mg/dL 12/11/2024 4:25 AM EDT [facility] BUN/Creatinine 29(H) 8 - 20 12/11/2024 4:25 AM EDT [facility] Calcium 8.2(L) 8.4 - 10.2 mg/dL 12/11/2024 4:25 AM EDT [facility] Anion Gap 10 4 - 12 12/11/2024 4:25 AM EDT [facility] eGFR (mL/min/1.73m2) 20(L) >=60 mL/min/1.7 3m2 12/11/2024 4:25 AM EDT [facility] Osmolality Calc 315.9 mOsm/kg 4:25 AM EDT [facility] Blood Venipuncture / Unknown 12/11/2024 3:39 AM EDT 12/11/2024 3:59 AM EDT us Venkatesh Stephen MD LAB BLOOD ORDERABLES Final Resul t [facility] [address] [place] [address], [facility] [phone] * (ABNORMAL) CBC with automated diff (12/11/2024 3:36 AM EDT) WBC 1.7(LL) 4.0 - 10.0 K/ L 12/11/2024 4:19 AM EDT [facility] RBC 2.50(L) 3.93 - 5.22 M/ L 12/11/2024 4:19 AM EDT [facility] Hemoglobin 7.7(L) 11.2 - 15.7 GM/DL 12/11/2024 4:19 AM EDT [facility] Hematocrit 24.4(L) 34.1 - 44.9 % 12/11/2024 4:19 AM EDT [facility] MCV 98(H) 79 - 95 fL 12/11/2024 4:19 AM EDT [facility] MCH 30.8 25.6 - 32.2 pg 12/11/2024 4:19 AM EDT [facility] MCHC 31.6(L) 32.2 - 35.5 GM/DL 12/11/2024 4:19 AM EDT [facility] RDW 16.9(H) 11.7 - 14.4 % 12/11/2024 4:19 AM EDT [facility] Platelets 50(L) 140 - 375 K/CU MM 12/11/2024 4:19 AM EDT [facility] MPV 11.7 9.4 - 12.3 fL 12/11/2024 4:19 AM EDT [facility] % Neutros 58 34 - 71 % 12/11/2024 4:19 AM EDT [facility] % Lymphs 27 19 - 52 % 12/11/2024 4:19 AM EDT [facility] % Monos 15(H) 5 - 13 % 12/11/2024 4:19 AM EDT [facility] % Eos 0(L) 1 - 6 % 12/11/2024 4:19 AM EDT [facility] % Baso 1 0 - 1 % 12/11/2024 4:19 AM EDT [facility] NRBC Absolute <0.01 0 - 0.012 K/ul 12/11/2024 4:19 AM EDT [facility] # Neutros 1.00(L) 1.56 - 6.13 K/ L 12/11/2024 4:19 AM EDT [facility] # Lymphs 0.46(L) 1.18 - 3.74 K/ L 12/11/2024 4:19 AM EDT [facility] # Monos 0.26 0.24 - 0.86 K/ L 12/11/2024 4:19 AM EDT [facility] # Eos <0.03(L) 0.04 - 0.36 K/ L 12/11/2024 4:19 AM EDT [facility] # Baso <0.03 0.01 - 0.08 K/ L 12/11/2024 4:19 AM EDT [facility] Immature Granulocytes-Re lative 0.00(L) 0.01 - 0.43 % 12/11/2024 4:19 AM EDT [facility] # IG <0.03 0.00 - 0.03 K/uL 12/11/2024 4:19 AM EDT [facility] Blood Venipuncture / Unknown 12/11/2024 3:36 AM EDT 12/11/2024 3:59 AM EDT Narrative [facility] - 12/11/2024 4:19 AM EDT When [...] MD LAB BLOOD ORDERABLES Final Resul t [facility] [facility] [address] [phone] * (ABNORMAL) Glucose, Nova Meter (12/10/2024 7:38 PM EDT) Pathologist [facility] [place] POC-GLUCOSE 201(H) 70 - 110 mg/dL 12/10/2024 7:39 PM EDT [facility] Comment: In the event of poor peripheral blood flow, venous or arterial blood should be used due to the potential of erroneous results. Notified Nurse [facility]BV [employer] [phone] 12/10/2024 7:39 PM EDT [facility] Blood WHOLE BLOOD / Unknown 12/10/2024 7:38 PM EDT 12/10/2024 7:39 PM EDT [facility] LABORATORY - 12/10/2024 7:39 PM EDT [employer] Attendant ID is - [id number] us Venkatesh Stephen MD POINT OF CARE TEST ORDERABLES Fi nal Result Performing Organization Address [facility] Co de Phone Number [facility] [address] [phone] * (ABNORMAL) Glucose, Nova Meter (12/10/2024 6:32 PM EDT) [facility] POC-GLUCOSE 235(H) 70 - 110 mg/dL 12/10/2024 6:34 PM EDT [facility] Comment: In the event of poor peripheral blood flow, venous or arterial blood should be used due to the potential of erroneous results. Notified Nurse [facility] [employer] [phone] 12/10/2024 6:34 PM EDT [facility] Blood WHOLE BLOOD / Unknown 12/10/2024 6:32 PM EDT 12/10/2024 6:34 PM EDT [facility] LABORATORY - 12/10/2024 6:34 PM EDT [employer] Att[facility] ID is - [id number] us Venkatesh Stephen MD POINT OF CARE TEST ORDERABLES Fi nal Result Performing Organization Address [facility]/ZIP Co de Phone Number [facility] [address] [phone] * (ABNORMAL) Glucose, Nova Meter (12/10/2024 4:56 PM EDT) POC-GLUCOSE 195(H) 70 - 110 mg/dL 12/10/2024 4:58 PM EDT [facility] Comment: In the event of poor peripheral blood flow, venous or arterial blood should be used due to the potential of erroneous results. Notified Nurse [facility]BV [employer] Att[employer] [phone] 12/10/2024 4:58 PM EDT [facility] Blood WHOLE BLOOD / Unknown 12/10/2024 4:56 PM EDT 12/10/2024 4:58 PM EDT Narrative [facility] - 12/10/2024 4:58 PM EDT [employer] Att[employer] ID is - [id number] us Venkatesh Stephen MD POINT OF CARE TEST ORDERABLES Fi nal Result [facility] [address] [phone] * US paracentesis (12/10/2024 11:37 AM EDT) [...] Ascites. ATTENDING PHYSICIAN: Dr. Haseeb Gil PHYSICIAN CONCRETE WALL GRINDER OPERATOR: Sujit Blackman PA-C FINDINGS: After informed consent [...] Ascites. ATTENDING PHYSICIAN: Dr. Haseeb Gil PHYSICIAN CONCRETE WALL GRINDER OPERATOR: Sujit Blackman PA-C FINDINGS: After informed consent [...] Blackman PA-C. us Mary Carmen Mcfadden MD IMG US ORDERABLES Final Result * ECG 12 lead (12/10/2024 10:07 AM EDT) VENTRICULAR RATE EKG/MIN 90 BPM GE MUSE ATRIAL RATE (MCT) 90 BPM GE MUSE MA Interval 138 ms GE MUSE QRS-INTERVAL (MSEC) 90 ms GE MUSE QT Interval 396 ms GE MUSE QTC Interval 484 ms GE MUSE P [place] 31 degrees GE MUSE R AXIS (MCT) -10 degrees GE MUSE T Wave [place] 37 degrees GE MUSE [place] Diagnosis Normal sinus rhythm Leftward axis Abnormal ECG When compared with ECG of 09-DEC-2024 12:33, No significant change was found Confirmed by Aleksandr ROBIN STEVE ([id number]) on 12/12/2024 1:22:56 AM GE MUSE 12/10/2024 10:0 7 AM EDT 12/12/2024 1:22 AM EDT us Deysi Foss MD ECG ORDERABLES Final Result Performing Organization Address [facility] Phone Number GE MUSE * Magnesium (12/10/2024 9:53 AM EDT) Magnesium 2.3 1.6 - 2.6 mg/dL 12/10/2024 11:02 AM EDT [facility] Blood Venipuncture / Unknown 12/10/2024 9:53 AM EDT 12/10/2024 10:39 AM EDT us Deysi Foss MD LAB BLOOD ORDERABLES Final Resul t Performing Organization Address [facility] Phone Number [facility] [address] [phone] * ALT (SGPT) (12/10/2024 9:53 AM EDT) ALT 12 <=34 U/L 12/10/2024 11:02 AM EDT [facility] Comment: ALT2 reagent used for testing does not contain P5P supplementation and therefore may miss ALT elevations in patients with B6 deficiency. This population may be as high as 10% in the [place], with risk factors including malabsorption, drug interactions, and alcoholic hepatitis. Blood Venipuncture / Unknown 12/10/2024 9:53 AM EDT 12/10/2024 10:39 AM EDT us Deysi Foss MD LAB BLOOD ORDERABLES Final Resul t Performing Organization Address [facility] Co de Phone Number [facility] [address] [phone] * (ABNORMAL) AST (SGOT) (12/10/2024 9:53 AM EDT) AST 39(H) 11 - 34 U/L 12/10/2024 11:02 AM EDT [facility] Comment: AST2 reagent used for testing does not contain P5P supplementation and therefore may miss AST elevations in patients with B6 deficiency. This population may be as high as 10% in the [place], with risk factors including malabsorption, drug interactions, and alcoholic hepatitis. [employer] has become aware of sulfasalazine and sulfapyridine [...] 9:53 AM EDT 12/10/2024 10:39 AM EDT us Deysi Foss MD LAB BLOOD ORDERABLES Final Resul t [facility] [address] [phone] * XR chest AP portable (12/10/2024 9:10 [...] 7.35 - 7.45 12/10/2024 6:51 AM EDT [facility] pCO2, Arterial 49(H) 35 - 45 mm Hg 12/10/2024 6:51 AM EDT [facility] pO2, Arterial 119(H) 80 - 100 mm Hg 12/10/2024 6:51 AM EDT [facility] HCO3, Arterial 24 20 - 26 mmol/L 12/10/2024 6:51 AM T [facility] Base Excess, Arterial -2.4(L) -2.0 - 2.0 mmol/L 12/10/2024 6:51 AM T [facility] O2 Sat, Arterial >99.2 95.0 - 100.0 % 12/10/2024 6:51 AM EDT [facility] Comment:notified at read-anny k verification CTO2 ARTERIAL 11.9 mmol/L 12/10/2024 6:51 AM EDT [facility] THB ARTERIAL 8.5(L) 12.0 - 18.0 g/dL 12/10/2024 6:51 AM [facility] COLLECTION SITE Left Radial 12/10/2024 6:51 AM [facility] Arterial Puncture Yes 12/10/2024 6:51 AM [facility] Blood Gas O2 Delivery Device Cannula 12/10/2024 6:51 AM T [facility] Oxygen Flow Rate 4 12/11/19 25 6:51 AM EDT [facility] Blood Gas PT Temperature C 37.0 12/10/2024 6:51 AM EDT [facility] Sen's Test Acceptable 12/10/2024 6:51 AM EDT [facility] ABG Number of Draw Attempts 1 12/10/2024 6:51 AM EDT [facility] FIO2 12/10/2024 6:51 AM EDT [facility] Blood Gas Temperature Corrected Results No No 12/10/2024 6:51 AM EDT [facility] Blood, Arterial Collection / Unknown 12/10/2024 6:42 AM EDT 12/10/2024 6:51 AM EDT us Blanka Malagon MD LAB BLOOD ORDERABLES Final Re sult Performing Organization Address [facility] de Phone Number [facility] [address] [phone] * (ABNORMAL) Glucose, Nova Meter (12/10/2024 5:52 AM EDT) POC-GLUCOSE 162(H) 70 - 110 mg/dL 12/10/2024 5:53 AM EDT [facility] Comment: In the event of poor peripheral blood flow, venous or arterial blood should be used due to the potential of erroneous results. Notified Nurse [facility] [employer] Att[employer] [phone] 12/10/2024 5:53 AM EDT [facility] Blood WHOLE BLOOD / Unknown 12/10/2024 5:52 AM EDT 12/10/2024 5:53 AM EDT Narrative [facility] - 12/10/2024 5:53 AM EDT [employer] Att[employer] ID is - [id number] us Mary Carmen Mcfadden MD POINT OF CARE TEST ORDERABLES F inal Result Performing Organization Address [facility] Co de Phone Number [facility] [address] [phone] * (ABNORMAL) Glucose, Nova Meter (12/09/2024 7:30 PM EDT) POC-GLUCOSE 158(H) 70 - 110 mg/dL 12/09/2024 7:31 PM EDT [facility] Comment: In the event of poor peripheral blood flow, venous or arterial blood should be used due to the potential of erroneous results. Notified Nurse [facility]BV [employer] Attendant [phone] 12/09/2024 7:31 PM EDT [facility] Blood WHOLE BLOOD / Unknown 12/09/2024 7:30 PM EDT 12/09/2024 7:31 PM EDT Narrative [facility] - 12/09/2024 7:31 PM EDT [employer] Att[facility] ID is - [id number] Mary Carmen Mcfadden MD POINT OF CARE TEST ORDERABLES F inal Result Performing Organization Address [facility] de Phone Number [facility] [address] [phone] * (ABNORMAL) Glucose, Nova Meter (12/09/2024 4:23 PM EDT) POC-GLUCOSE 173(H) 70 - 110 mg/dL 12/09/2024 4:24 PM EDT [facility] Comment: In the event of poor peripheral blood flow, venous or arterial blood should be used due to the potential of erroneous results. Notified Nurse [facility]BV [employer] Attendant [phone] 12/09/2024 4:24 PM EDT [facility] Blood WHOLE BLOOD / Unknown 12/09/2024 4:23 PM EDT 12/09/2024 4:24 PM EDT Narrative [facility] - 12/09/2024 4:24 PM EDT [employer] Att[facility] ID is - [id number] Mary Carmen Mcfadden MD POINT OF CARE TEST ORDERABLES F inal Result Performing Organization Address City/[facility] Co de Phone Number [facility] [address] [phone] * ECG 12 lead (12/09/2024 12:33 PM EDT) VENTRICULAR RATE EKG/MIN 91 BPM GE MUSE ATRIAL RATE (MCT) 91 BPM GE MUSE MA Interval 140 ms GE MUSE QRS-INTERVAL (MSEC) 88 ms GE MUSE QT Interval 386 ms GE MUSE QTC Interval 474 ms GE MUSE P [place] 44 degrees GE MUSE R AXIS (MCT) -3 degrees GE MUSE T Wave [place] 16 degrees GE MUSE [place] Diagnosis Normal sinus rhythm Minimal voltage criteria for LVH, may be normal variant Septal infarct (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 ([id number]) on 12/09/2024 6:05:19 PM GE MUSE 12/09/2024 12:3 3 PM EDT 12/09/2024 6:05 PM EDT us Deysi Foss MD ECG ORDERABLES Final Result Performing Organization Address City/[facility] Co de Phone Number GE MUSE * (ABNORMAL) Glucose, Nova Meter (12/09/2024 11:17 AM EDT) Pathologist [facility] [place] POC-GLUCOSE 173(H) 70 - 110 mg/dL 12/09/2024 11:18 AM EDT [facility] Comment: In the event of poor peripheral blood flow, venous or arterial blood should be used due to the potential of erroneous results. Notified Nurse [facility]BV [employer] Attendant [phone] 12/09/2024 11:18 AM EDT [facility] Blood WHOLE BLOOD / Unknown 12/09/2024 11:17 AM EDT 12/09/2024 11:18 AM EDT Narrative [facility] - 12/09/2024 11:18 AM EDT [employer] Attendant ID is - [id number] us Mary Carmen Mcfadden MD POINT OF CARE TEST ORDERABLES F inal Result [facility] [address] [phone] * XR chest AP portable (12/09/2024 7:09 [...] 7.35 - 7.45 12/09/2024 6:52 AM EDT [facility] pCO2, Arterial 51(H) 35 - 45 mm Hg 12/09/2024 6:52 AM EDT [facility] pO2, Arterial 157(H) 80 - 100 mm Hg 12/09/2024 6:52 AM EDT [facility] HCO3, Arterial 24 20 - 26 mmol/L 12/09/2024 6:52 AM EDT [facility] Base Excess, Arterial -2.6(L) -2.0 - 2.0 mmol/L 12/09/2024 6:52 AM EDT [facility] O2 Sat, Arterial >99.2 95.0 - 100.0 % 12/09/2024 6:52 AM EDT [facility] Comment:[id number] notified PAULINO COFFMAN RN at 12/09/2024 06:51 read-back verification CTO2 ARTERIAL 12.3 mmol/L 12/09/2024 6:52 AM EDT [facility] THB ARTERIAL 8.7(L) 12.0 - 18.0 g/dL 12/09/2024 6:52 AM EDT [facility] COLLECTION SITE Left Radial 12/09/2024 6:52 AM EDT [facility] Arterial Puncture Yes 12/09/2024 6:52 AM EDT [facility] Blood Gas O2 Delivery Device Cannula 12/09/2024 6:52 AM EDT [facility] Oxygen Flow Rate 4 12/10/19 6:52 AM EDT [facility] Blood Gas PT Temperature C 37.0 12/09/2024 6:52 AM EDT [facility] Sen's Test Acceptable 12/09/2024 6:52 AM EDT [facility] Critical Values Notification Critical Blood gas called to DAYANARA MILES . [place] [id number] and confirmed on 12/09/2024 06:51 12/09/2024 6:52 AM EDT [facility] ABG Number of Draw Attempts 1 12/09/2024 6:52 AM EDT [facility] FIO2 12/09/2024 6:52 AM EDT [facility] Blood Gas Temperature Corrected Results No No 12/09/2024 6:52 AM EDT [facility] Blood, Arterial ENTIRE LEFT UPPER ARM / Unknown 12/09/2024 6:37 AM EDT 12/09/2024 6:52 AM EDT us Blanka Malagon MD LAB BLOOD ORDERABLES Final Re sult [facility] [address] [phone] * (ABNORMAL) Glucose, Nova Meter (12/09/2024 5:45 AM EDT) [facility] POC-GLUCOSE 148(H) 70 - 110 mg/dL 12/09/2024 5:46 AM EDT [facility] Comment: In the event of poor peripheral blood flow, venous or arterial blood should be used due to the potential of erroneous results. Notified Nurse RBV [employer] Attendant [phone] 12/09/2024 5:46 AM EDT [facility] Blood WHOLE BLOOD / Unknown 12/09/2024 5:45 AM EDT 12/09/2024 5:46 AM EDT Narrative [facility] - 12/09/2024 5:46 AM EDT [employer] Att[employer] ID is - [id number] Mary Carmen Mcfadden MD POINT OF CARE TEST ORDERABLES F inal Result [facility] [address] [phone] * (ABNORMAL) CBC - Hemogram (SJ-BKR) (12/09/2024 3:38 AM EDT) [facility] WBC 2.4(L) 4.0 - 10.0 K/ L 12/09/2024 3:59 AM EDT [facility] RBC 2.83(L) 3.93 - 5.22 M/ L 12/09/2024 3:59 AM EDT [facility] Hemoglobin 8.5(L) 11.2 - 15.7 GM/DL 12/09/2024 3:59 AM EDT [facility] Hematocrit 28.0(L) 34.1 - 44.9 % 12/09/2024 3:59 AM EDT [facility] MCV 99(H) 79 - 95 fL 12/09/2024 3:59 AM EDT [facility] MCH 30.0 25.6 - 32.2 pg 12/09/2024 3:59 AM EDT [facility] MCHC 30.4(L) 32.2 - 35.5 GM/DL 12/09/2024 3:59 AM EDT [facility] RDW 17.2(H) 11.7 - 14.4 % 12/09/2024 3:59 AM EDT [facility] Platelets 55(L) 140 - 375 K/CU MM 12/09/2024 3:59 AM EDT [facility] MPV 11.5 9.4 - 12.3 fL 12/09/2024 3:59 AM EDT [facility] Blood Venipuncture / Unknown 12/09/2024 3:38 AM EDT 12/09/2024 3:45 AM EDT us Mary Carmen Mcfadden MD LAB BLOOD ORDERABLES Final Resu lt [facility] [address] [phone] * (ABNORMAL) Basic Metabolic Panel (12/09/2024 3:38 AM EDT) Sodium 148(H) 136 - 145 meq/L 12/09/2024 4:07 AM EDT [facility] Potassium 3.6 3.4 - 5.1 meq/L 12/09/2024 4:07 AM EDT [facility] CO2 23 22 - 29 meq/L 12/09/2024 4:07 AM EDT [facility] Chloride 116(H) 98 - 112 meq/L 12/09/2024 4:07 AM EDT [facility] Glucose 146(H) 82 - 115 mg/dL 12/09/2024 4:07 AM EDT [facility] BUN 77.3(H) 9.8 - 20.1 mg/dL 12/09/2024 4:07 AM EDT [facility] Creatinine 2.82(H) 0.57 - 1.11 mg/dL 12/09/2024 4:07 AM EDT [facility] BUN/Creatinine 27(H) 8 - 20 12/09/2024 4:07 AM EDT [facility] Calcium 8.7 8.4 - 10.2 mg/dL 12/09/2024 4:07 AM EDT [facility] Anion Gap 13(H) 4 - 12 12/09/2024 4:07 AM EDT [facility] eGFR (mL/min/1.73m2) 18(L) >=60 mL/min/1.7 3m2 12/09/2024 4:07 AM EDT [facility] Osmolality Calc 320.0 mOsm/kg 4:07 AM EDT [facility] Blood Venipuncture / Unknown 12/09/2024 3:38 AM EDT 12/09/2024 3:45 AM EDT Mary Carmen Mcfadden MD LAB BLOOD ORDERABLES Final Resu lt Performing Organization Address [facility] de Phone Number [facility] [address] [phone] * (ABNORMAL) Glucose, Nova Meter (12/08/2024 8:08 PM EDT) POC-GLUCOSE 172(H) 70 - 110 mg/dL 12/08/2024 8:08 PM EDT [facility] Comment: In the event of poor peripheral blood flow, venous or arterial blood should be used due to the potential of erroneous results. Notified Nurse RBV [employer] Att[employer] [phone] 12/08/2024 8:08 PM EDT [facility] Blood WHOLE BLOOD / Unknown 12/08/2024 8:08 PM EDT 12/08/2024 8:08 PM EDT Narrative [facility] - 12/08/2024 8:08 PM EDT [employer] Att[employer] ID is - [id number] us Mary Carmen Mcfadden MD POINT OF CARE TEST ORDERABLES F inal Result Performing Organization Address [facility] Co de Phone Number [facility] [address] [phone] * (ABNORMAL) Glucose, Nova Meter (12/08/2024 3:34 PM EDT) POC-GLUCOSE 159(H) 70 - 110 mg/dL 12/08/2024 3:36 PM EDT [facility] Comment: In the event of poor peripheral blood flow, venous or arterial blood should be used due to the potential of erroneous results. Notified Nurse RBV [employer] Attendant [phone] 12/08/2024 3:36 PM EDT [facility] Blood WHOLE BLOOD / Unknown 12/08/2024 3:34 PM EDT 12/08/2024 3:36 PM EDT Narrative [facility] - 12/08/2024 3:36 PM EDT [employer] Att[employer] ID is - [id number] Mary Carmen Mcfadden MD POINT OF CARE TEST ORDERABLES F inal Result Performing Organization Address [facility] de Phone Number [facility] [address] [phone] * (ABNORMAL) Glucose, Nova Meter (12/08/2024 10:57 AM EDT) POC-GLUCOSE 191(H) 70 - 110 mg/dL 12/08/2024 10:59 AM EDT [facility] Comment: In the event of poor peripheral blood flow, venous or arterial blood should be used due to the potential of erroneous results. Protocols Followed Notified Nurse RBV [employer] Attendant [phone] 12/08/2024 10:59 AM EDT [facility] Blood WHOLE BLOOD / Unknown 12/08/2024 10:57 AM EDT 12/08/2024 10:59 AM EDT Narrative [facility] - 12/08/2024 10:59 AM EDT [employer] Att[employer] ID is - [id number] Mary Carmen Mcfadden MD POINT OF CARE TEST ORDERABLES F inal Result Performing Organization Address [facility] Co de Phone Number [facility] [address] [phone] * ECG 12 lead (12/08/2024 10:55 AM EDT) VENTRICULAR RATE EKG/MIN 92 BPM GE MUSE ATRIAL RATE (MCT) 92 BPM GE MUSE MA Interval 138 ms GE MUSE QRS-INTERVAL (MSEC) 94 ms GE MUSE QT Interval 354 ms GE MUSE QTC Interval 437 ms GE MUSE P [place] 30 degrees GE MUSE R AXIS (MCT) -11 degrees GE MUSE T Wave [place] 37 degrees GE MUSE [place] Diagnosis Normal sinus rhythm Minimal voltage criteria for LVH, may be normal variant Septal infarct , age undetermined Confirmed by DEYSI FOSS M.D. ([id number]) on 12/08/2024 4:27:47 PM GE MUSE 12/08/2024 10:5 5 AM EDT 12/08/2024 4:27 PM EDT us Deysi Foss MD ECG ORDERABLES Final Result GE MUSE * (ABNORMAL) Blood gas, arterial (12/08/2024 7:13 AM EDT) pH, Arterial 7.26(L) 7.35 - 7.45 12/08/2024 7:31 AM EDT [facility] pCO2, Arterial 54(H) 35 - 45 mm Hg 12/08/2024 7:31 AM EDT [facility] pO2, Arterial 80 80 - 100 mm Hg 12/08/2024 7:31 AM EDT [facility] HCO3, Arterial 24 20 - 26 mmol/L 12/08/2024 7:31 AM EDT [facility] Base Excess, Arterial -2.9(L) -2.0 - 2.0 mmol/L 12/08/2024 7:31 AM EDT [facility] O2 Sat, Arterial 96.7 95.0 - 100.0 % 12/08/2024 7:31 AM EDT [facility] CTO2 ARTERIAL 11.8 mmol/L 12/08/2024 7:31 AM EDT [facility] THB ARTERIAL 8.8(L) 12.0 - 18.0 g/dL 12/08/2024 7:31 AM EDT [facility] COLLECTION SITE Right Brachial 12/08/2024 7:31 AM EDT [facility] Arterial Puncture Yes 12/08/2024 7:31 AM EDT [facility] Blood Gas O2 Delivery Device Cannula 12/08/2024 7:31 AM EDT [facility] Oxygen Flow Rate 4 12/09/19 7:31 AM EDT [facility] Blood Gas PT Temperature C 37.0 12/08/2024 7:31 AM EDT [facility] Sen's Test Not Applicable 12/09/19 7:31 AM EDT [facility] Critical Values Notification Critical Blood gas called to KNOWN CONDITION . Results acknowledged/r ead back to [id number] and confirmed on 12/08/2024 07:30 12/08/2024 7:31 AM EDT [facility] ABG Number of Draw Attempts 1 12/08/2024 7:31 AM EDT [facility] FIO2 12/08/2024 7:31 AM EDT [facility] Blood Gas Temperature Corrected Results No No 12/08/2024 7:31 AM EDT [facility] Blood, Arterial 12/08/2024 7 :13 AM EDT 12/08/2024 7:31 AM EDT us Mary Carmen Mcfadden MD LAB BLOOD ORDERABLES Final Resu lt [facility] [address] [phone] * (ABNORMAL) Glucose, Nova Meter (12/08/2024 6:08 AM EDT) POC-GLUCOSE 136(H) 70 - 110 mg/dL 12/08/2024 6:09 AM EDT [facility] Comment: In the event of poor peripheral blood flow, venous or arterial blood should be used due to the potential of erroneous results. Protocols Followed Notified Nurse [facility] [employer] Att[employer] [phone] 12/08/2024 6:09 AM EDT [facility] Blood WHOLE BLOOD / Unknown 12/08/2024 6:08 AM EDT 12/08/2024 6:09 AM EDT Narrative [facility] - 12/08/2024 6:09 AM EDT [employer] Attendant ID is - [id number] us Mary Carmen Mcfadden MD POINT OF CARE TEST ORDERABLES F inal Result [facility] [address] [phone] * (ABNORMAL) CBC - Hemogram (SJ-BKR) (12/08/2024 4:10 AM EDT) WBC 3.1(L) 4.0 - 10.0 K/ L 12/08/2024 4:53 AM EDT [facility] RBC 2.84(L) 3.93 - 5.22 M/ L 12/08/2024 4:53 AM EDT [facility] Hemoglobin 8.7(L) 11.2 - 15.7 GM/DL 12/08/2024 4:53 AM EDT [facility] Hematocrit 28.2(L) 34.1 - 44.9 % 12/08/2024 4:53 AM EDT [facility] MCV 99(H) 79 - 95 fL 12/08/2024 4:53 AM EDT [facility] MCH 30.6 25.6 - 32.2 pg 12/08/2024 4:53 AM EDT [facility] MCHC 30.9(L) 32.2 - 35.5 GM/DL 12/08/2024 4:53 AM EDT [facility] RDW 17.4(H) 11.7 - 14.4 % 12/08/2024 4:53 AM EDT [facility] Platelets 54(L) 140 - 375 K/CU MM 12/08/2024 4:53 AM EDT [facility] MPV 11.2 9.4 - 12.3 fL 12/08/2024 4:53 AM EDT [facility] Blood Venipuncture / Unknown 12/08/2024 4:10 AM EDT 12/08/2024 4:37 AM EDT us Mary Carmen Mcfadden MD LAB BLOOD ORDERABLES Final Resu lt [facility] [address] [phone] * (ABNORMAL) Basic Metabolic Panel (12/08/2024 4:10 AM EDT) Sodium 149(H) 136 - 145 meq/L 12/08/2024 5:22 AM EDT [facility] Potassium 3.6 3.4 - 5.1 meq/L 12/08/2024 5:22 AM EDT [facility] CO2 23 22 - 29 meq/L 12/08/2024 5:22 AM EDT [facility] Chloride 116(H) 98 - 112 meq/L 12/08/2024 5:22 AM EDT [facility] Glucose 160(H) 82 - 115 mg/dL 12/08/2024 5:22 AM EDT [facility] BUN 76.4(H) 9.8 - 20.1 mg/dL 12/08/2024 5:22 AM EDT [facility] Creatinine 2.92(H) 0.57 - 1.11 mg/dL 12/08/2024 5:22 AM EDT [facility] BUN/Creatinine 26(H) 8 - 20 12/08/2024 5:22 AM EDT [facility] Calcium 8.7 8.4 - 10.2 mg/dL 12/08/2024 5:22 AM EDT [facility] Anion Gap 14(H) 4 - 12 12/08/2024 5:22 AM EDT [facility] eGFR (mL/min/1.73m2) 18(L) >=60 mL/min/1.7 3m2 12/08/2024 5:22 AM EDT [facility] Osmolality Calc 322.3 mOsm/kg 5:22 AM EDT [facility] Blood Venipuncture / Unknown 12/08/2024 4:10 AM EDT 12/08/2024 4:40 AM EDT Mary Carmen Mcfadden MD LAB BLOOD ORDERABLES Final Resu lt [facility] [address] [phone] * (ABNORMAL) Glucose, Nova Meter (12/07/2024 7:54 PM EDT) POC-GLUCOSE 164(H) 70 - 110 mg/dL 12/07/2024 7:55 PM EDT [facility] Comment: In the event of poor peripheral blood flow, venous or arterial blood should be used due to the potential of erroneous results. Protocols Followed Notified Nurse RBV [employer] Attendant [phone] 12/07/2024 7:55 PM EDT [facility] Blood WHOLE BLOOD / Unknown 12/07/2024 7:54 PM EDT 12/07/2024 7:55 PM EDT Narrative [facility] - 12/07/2024 7:55 PM EDT [employer] Att[employer] ID is - [id number] Mary Carmen Mcfadden MD POINT OF CARE TEST ORDERABLES F inal Result Performing Organization Address City/[facility] Co de Phone Number [facility] [address] [phone] * (ABNORMAL) ABG (12/07/2024 4:21 PM EDT) pH, Arterial 7.29(L) 7.35 - 7.45 12/07/2024 4:43 PM EDT [facility] pCO2, Arterial 50(H) 35 - 45 mm Hg 12/07/2024 4:43 PM EDT [facility] pO2, Arterial 179(H) 80 - 100 mm Hg 12/07/2024 4:43 PM EDT [facility] HCO3, Arterial 24 20 - 26 mmol/L 12/07/2024 4:43 PM EDT [facility] Base Excess, Arterial -2.3(L) -2.0 - 2.0 mmol/L 12/07/2024 4:43 PM EDT [facility] O2 Sat, Arterial >100.0(H) 95.0 - 100.0 % 12/07/2024 4:43 PM EDT [facility] Comment:[id number] notified MORRIS LORENZ RN at 12/07/2024 16:42 read-back verification CTO2 ARTERIAL 12.0 mmol/L 12/07/2024 4:43 PM EDT [facility] THB ARTERIAL 8.4(L) 12.0 - 18.0 g/dL 12/07/2024 4:43 PM EDT [facility] PaO2/FIO2 calculated 359.0 12/07/2024 4:43 PM EDT [facility] COLLECTION SITE Right Brachial 12/07/2024 4:43 PM EDT [facility] Arterial Puncture Yes 12/07/2024 4:43 PM EDT [facility] Blood Gas O2 Delivery Device NIV 12/07/2024 4:43 PM EDT [facility] Blood Gas PT Temperature C 37.0 12/07/2024 4:43 PM EDT [facility] Sen's Test Not Applicable 12/08/19 4:43 PM EDT [facility] Critical Values Notification Critical Blood gas called to SEB LORENZ RN . Results acknowledged/r ead back to [id number] and confirmed on 12/07/2024 16:42 12/07/2024 4:43 PM EDT [facility] ABG Number of Draw Attempts 2 12/07/2024 4:43 PM EDT [facility] Set Rate 16.0 12/07/2024 4:43 PM EDT [facility] IPAP 10 12/07/2024 4:43 PM EDT [facility] EPAP 6 12/07/2024 4:43 PM EDT [facility] FIO2 50.0 12/07/2024 4:43 PM EDT [facility] Blood Gas Temperature Corrected Results No No 12/07/2024 4:43 PM EDT [facility] Blood, Arterial 12/07/2024 4 :21 PM EDT 12/07/2024 4:43 PM EDT us Blanka Malagon MD LAB BLOOD ORDERABLES Final Re sult [facility] [address] [phone] * (ABNORMAL) Glucose, Nova Meter (12/07/2024 3:39 PM EDT) POC-GLUCOSE 159(H) 70 - 110 mg/dL 12/07/2024 3:41 PM EDT [facility] Comment: In the event of poor peripheral blood flow, venous or arterial blood should be used due to the potential of erroneous results. Notified Nurse RBV [employer] Att[employer] [phone] 12/07/2024 3:41 PM EDT [facility] Blood WHOLE BLOOD / Unknown 12/07/2024 3:39 PM EDT 12/07/2024 3:41 PM EDT Narrative [facility] - 12/07/2024 3:41 PM EDT [employer] Att[employer] ID is - [id number] us Mary Carmen Mcfadden MD POINT OF CARE TEST ORDERABLES F inal Result Performing Organization Address [facility]/ZIP Co de Phone Number [facility] [address] [phone] * XR chest AP portable (12/07/2024 2:25 [...] 7.35 - 7.45 12/07/2024 3:27 PM EDT [facility] pCO2, Arterial 50(H) 35 - 45 mm Hg 12/07/2024 3:27 PM EDT [facility] pO2, Arterial 58(L) 80 - 100 mm Hg 12/07/2024 3:27 PM EDT [facility] HCO3, Arterial 24 20 - 26 mmol/L 12/07/2024 3:27 PM EDT [facility] Base Excess, Arterial -3.3(L) -2.0 - 2.0 mmol/L 12/07/2024 3:27 PM EDT [facility] O2 Sat, Arterial 91.3(L) 95.0 - 100.0 % 12/07/2024 3:27 PM EDT [facility] CTO2 ARTERIAL 11.2 mmol/L 12/07/2024 3:27 PM EDT [facility] THB ARTERIAL 8.9(L) 12.0 - 18.0 g/dL 12/07/2024 3:27 PM EDT [facility] COLLECTION SITE Right Radial 12/07/2024 3:27 PM EDT [facility] Arterial Puncture Yes 12/07/2024 3:27 PM EDT [facility] Blood Gas O2 Delivery Device Cannula 12/07/2024 3:27 PM EDT [facility] Oxygen Flow Rate 2 12/07/2024 3:27 PM EDT [facility] Blood Gas PT Temperature C 37.0 12/07/2024 3:27 PM EDT [facility] Sen's Test Unacceptable 12/07/2024 3:27 PM EDT [facility] Vent Mode Other 12/07/2024 3:27 PM EDT [facility] Critical Values Notification Critical Blood gas called to DR MALAGON . [place] [id number] and confirmed on 12/07/2024 14:14 12/07/2024 3:27 PM EDT [facility] ABG Number of Draw Attempts 1 12/07/2024 3:27 PM EDT [facility] Performed by: CD 12/07/2024 3:27 PM EDT [facility] FIO2 12/07/2024 3:27 PM EDT [facility] Blood Gas Temperature Corrected Results No No 12/07/2024 3:27 PM EDT [facility] Blood, Arterial 12/07/2024 2 :02 PM EDT 12/07/2024 2:14 PM EDT Mary Carmen Mcfadden MD LAB BLOOD ORDERABLES Final Resu lt [facility] [address] [phone] * (ABNORMAL) Glucose, Nova Meter (12/07/2024 10:54 AM EDT) POC-GLUCOSE 146(H) 70 - 110 mg/dL 12/07/2024 10:56 AM EDT [facility] Comment: In the event of poor peripheral blood flow, venous or arterial blood should be used due to the potential of erroneous results. Notified Nurse RBV [employer] Att[employer] [phone] 12/07/2024 10:56 AM EDT [facility] Blood WHOLE BLOOD / Unknown 12/07/2024 10:54 AM EDT 12/07/2024 10:56 AM EDT Narrative [facility] - 12/07/2024 10:56 AM EDT [employer] Att[employer] ID is - [id number] us Mary Carmen Mcfadden MD POINT OF CARE TEST ORDERABLES F inal Result [facility] [address] [phone] * (ABNORMAL) Blood gas, arterial (12/07/2024 10:36 AM EDT) pH, Arterial 7.26(L) 7.35 - 7.45 12/07/2024 1:50 PM EDT [facility] pCO2, Arterial 50(H) 35 - 45 mm Hg 12/07/2024 1:50 PM EDT [facility] pO2, Arterial 43(LL) 80 - 100 mm Hg 12/07/2024 1:50 PM EDT [facility] HCO3, Arterial 22 20 - 26 mmol/L 12/07/2024 1:50 PM EDT [facility] Base Excess, Arterial -4.7(L) -2.0 - 2.0 mmol/L 12/07/2024 1:50 PM EDT [facility] O2 Sat, Arterial 80.4(L) 95.0 - 100.0 % 12/07/2024 1:50 PM EDT [facility] Comment:[id number] notified TRAY LORENZ RN at 12/07/2024 10:51 read-back verification CTO2 ARTERIAL 9.4 mmol/L 12/07/2024 1:50 PM EDT [facility] THB ARTERIAL 8.5(L) 12.0 - 18.0 g/dL 12/07/2024 1:50 PM EDT [facility] PaO2/FIO2 calculated 203.0 12/07/2024 1:50 PM EDT [facility] COLLECTION SITE Right Radial 12/07/2024 1:50 PM EDT [facility] Arterial Puncture Yes 12/07/2024 1:50 PM EDT [facility] Blood Gas PT Temperature C 37.0 12/07/2024 1:50 PM EDT [facility] Sen's Test Acceptable 12/07/2024 1:50 PM EDT [facility] Critical Values Notification Critical Blood gas called to TRAY LORENZ RN . Results [place] [id number] and confirmed on 12/07/2024 10:51 12/07/2024 1:50 PM EDT [facility] ABG Number of Draw Attempts 1 12/07/2024 1:50 PM EDT [facility] FIO2 21.0 12/07/2024 1:50 PM EDT [facility] Blood Gas Temperature Corrected Results No No 12/07/2024 1:50 PM EDT [facility] Blood, Arterial 12/07/2024 1 0:36 AM EDT 12/07/2024 1:50 PM EDT Mary Carmen Mcfadden MD LAB BLOOD ORDERABLES Final Resu lt Performing Organization Address City/[facility] Co de Phone Number [facility] [address] [phone] * ECG 12 lead (12/07/2024 10:29 AM EDT) VENTRICULAR RATE EKG/MIN 91 BPM GE MUSE ATRIAL RATE (MCT) 91 BPM GE MUSE MA Interval 142 ms GE MUSE QRS-INTERVAL (MSEC) 88 ms GE MUSE QT Interval 376 ms GE MUSE QTC Interval 462 ms GE MUSE P [place] 39 degrees GE MUSE R AXIS (MCT) -3 degrees GE MUSE T Wave [place] 4 degrees GE MUSE [place] Diagnosis Normal sinus rhythm Nonspecific T wave abnormality Abnormal ECG When compared with ECG of 06-DEC-2024 13:16, No significant change was found Confirmed by DEYSI FOSS M.D. ([id number]) on 12/07/2024 7:36:17 PM GE MUSE 12/07/2024 10:2 9 AM EDT 12/07/2024 7:36 PM EDT us Mary Carmen Mcfadden MD ECG ORDERABLES Final Result Performing Organization Address City/[facility] Co de Phone Number GE MUSE * (ABNORMAL) Glucose, Nova Meter (12/07/2024 5:51 AM EDT) POC-GLUCOSE 159(H) 70 - 110 mg/dL 12/07/2024 5:52 AM EDT [facility] Comment: In the event of poor peripheral blood flow, venous or arterial blood should be used due to the potential of erroneous results. Notified Nurse RBV [employer] Att[employer] [phone] 12/07/2024 5:52 AM EDT [facility] Blood WHOLE BLOOD / Unknown 12/07/2024 5:51 AM EDT 12/07/2024 5:52 AM EDT Narrative [facility] - 12/07/2024 5:52 AM EDT [employer] Att[employer] ID is - [id number] us Mary Carmen Mcfadden MD POINT OF CARE TEST ORDERABLES F inal Result [facility] [address] [phone] * Erythropoietin(SENDOUT) (12/07/2024 3:59 AM EDT) Erythropoietin 19 4 - 27 mU/mL 12/08/2024 2:30 PM EDT [id number] Comment: INTERPRETIVE INFORMATION: Erythropoietin Normal serum concentrations [...] may benefit from therapy with recombinant EPO ([facility] [id number]). Performed By: [email or web address] [address] [place] [address] Yard Switch Operator: Lalo Mortensen MD, PhD CLIA Number: [id number] Blood Venipuncture / Unknown 12/07/2024 3:59 AM EDT 12/07/2024 4:11 AM EDT us Ariel Mills MD LAB BLOOD ORDERABLES Final Res ult Performing Organization Address City/[facility]/ZIP Co [place] [address], [facility] [phone] * Ammonia (12/07/2024 3:59 AM EDT) Ammonia 44 18 - 72 mol/L 12/07/2024 4:37 AM EDT [facility] Blood Venipuncture / Unknown 12/07/2024 3:59 AM EDT 12/07/2024 4:22 AM EDT us Timothy Bai MD LAB BLOOD ORDERABLES Final Result [facility] [address] [place] [address] * (ABNORMAL) Comprehensive Metabolic Panel (12/07/2024 3:59 AM EDT) Sodium 146(H) 136 - 145 meq/L 12/07/2024 4:52 AM EDT [facility] Potassium 3.8 3.4 - 5.1 meq/L 12/07/2024 4:52 AM EDT [facility] Chloride 118(H) 98 - 112 meq/L 12/07/2024 4:52 AM EDT [facility] CO2 20(L) 22 - 29 meq/L 12/07/2024 4:52 AM [facility] Calcium 8.4 8.4 - 10.2 mg/dL 12/07/2024 4:52 AM [facility] Glucose 166(H) 82 - 115 mg/dL 12/07/2024 4:52 AM [facility] BUN 72.9(H) 9.8 - 20.1 mg/dL 12/07/2024 4:52 AM [facility] Creatinine 3.13(H) 0.57 - 1.11 mg/dL 12/07/2024 4:52 AM [facility] BUN/Creatinine 23(H) 8 - 20 12/07/2024 4:52 AM [facility] eGFR (mL/min/1.73m2) 16(L) >=60 mL/min/1. 73m2 12/07/2024 4:52 AM [facility] Albumin 4.1 3.5 - 5.0 g/dL 12/07/2024 4:52 AM [facility] Alkaline Phosphatase 48 40 - 150 U/L 12/07/2024 4:52 AM [facility] ALT 9 <=34 U/L 12/07/2024 4:52 AM [facility] Comment: ALT2 reagent used for testing does not contain P5P supplementation and therefore may miss ALT elevations in patients with B6 deficiency. This population may be as high as 10% in the [place], with risk factors including malabsorption, drug interactions, and alcoholic hepatitis. AST 24 11 - 34 U/L 12/07/2024 4:52 AM [facility] Comment: AST2 reagent used for testing does not contain P5P supplementation and therefore may miss AST elevations in patients with B6 deficiency. This population may be as high as 10% in the [place], with risk factors including malabsorption, drug interactions, and alcoholic hepatitis. Total Bilirubin 0.9 0.2 - 1.2 mg/dL 12/07/2024 4:52 AM [facility] Protein, Total 6.4 6.4 - 8.3 g/dL 12/07/2024 4:52 AM [facility] Globulin 2.3(L) 2.5 - 4.1 g/dL 12/07/2024 4:52 AM EDT [facility] Anion Gap 12 4 - 12 12/07/2024 4:52 AM EDT [facility] A/G Ratio 1.8 0.7 - 1.9 12/07/2024 4:52 AM EDT [facility] Osmolality Calc 315.8 mOsm/kg 4:52 AM EDT [facility] Blood Venipuncture / Unknown 12/07/2024 3:59 AM EDT 12/07/2024 4:09 AM EDT Timothy Bai MD LAB BLOOD ORDERABLES Final Result Performing Organization Address [facility]/ZIP Co de Phone Number [facility] [address] [phone] * Magnesium (12/07/2024 3:59 AM EDT) Magnesium 2.4 1.6 - 2.6 mg/dL 12/07/2024 4:52 AM EDT [facility] Blood Venipuncture / Unknown 12/07/2024 3:59 AM EDT 12/07/2024 4:09 AM EDT Timothy Bai MD LAB BLOOD ORDERABLES Final Result Performing Organization Address City/[facility]/ZIP Co de Phone Number [facility] [address] [phone] * (ABNORMAL) CBC - Hemogram (SJ-BKR) (12/07/2024 3:59 AM EDT) WBC 3.5(L) 4.0 - 10.0 K/ L 12/07/2024 4:31 AM EDT [facility] RBC 2.58(L) 3.93 - 5.22 M/ L 12/07/2024 4:31 AM EDT [facility] Hemoglobin 7.9(L) 11.2 - 15.7 GM/DL 12/07/2024 4:31 AM EDT [facility] Hematocrit 25.6(L) 34.1 - 44.9 % 12/07/2024 4:31 AM EDT [facility] MCV 99(H) 79 - 95 fL 12/07/2024 4:31 AM EDT [facility] MCH 30.6 25.6 - 32.2 pg 12/07/2024 4:31 AM EDT [facility] MCHC 30.9(L) 32.2 - 35.5 GM/DL 12/07/2024 4:31 AM EDT [facility] RDW 17.4(H) 11.7 - 14.4 % 12/07/2024 4:31 AM EDT [facility] Platelets 54(L) 140 - 375 K/CU MM 12/07/2024 4:31 AM EDT [facility] MPV 12.2 9.4 - 12.3 fL 12/07/2024 4:31 AM EDT [facility] Blood Venipuncture / Unknown 12/07/2024 3:59 AM EDT 12/07/2024 4:09 AM EDT us Timothy Bai MD LAB BLOOD ORDERABLES Final Result [facility] [address] [phone] * (ABNORMAL) Glucose, Nova Meter (12/06/2024 7:26 PM EDT) [facility] POC-GLUCOSE 170(H) 70 - 110 mg/dL 12/06/2024 7:27 PM EDT [facility] Comment: In the event of poor peripheral blood flow, venous or arterial blood should be used due to the potential of erroneous results. Notified Nurse RBV [employer] Att[employer] [phone] 12/06/2024 7:27 PM EDT [facility] Blood WHOLE BLOOD / Unknown 12/06/2024 7:26 PM EDT 12/06/2024 7:27 PM EDT Narrative [facility] - 12/06/2024 7:27 PM EDT [employer] Att[employer] ID is - [id number] Mary Carmen Mcfadden MD POINT OF CARE TEST ORDERABLES F inal Result Performing Organization Address [facility] Co de Phone Number [facility] [address] [phone] * (ABNORMAL) Glucose, Nova Meter (12/06/2024 4:06 PM EDT) [facility] POC-GLUCOSE 134(H) 70 - 110 mg/dL 12/06/2024 4:07 PM EDT [facility] Comment: In the event of poor peripheral blood flow, venous or arterial blood should be used due to the potential of erroneous results. Notified Nurse RBV [employer] Att[employer] [phone] 12/06/2024 4:07 PM EDT [facility] Blood WHOLE BLOOD / Unknown 12/06/2024 4:06 PM EDT 12/06/2024 4:07 PM EDT Narrative [facility] - 12/06/2024 4:07 PM EDT [employer] Att[employer] ID is - [id number] Mary Carmen Mcfadden MD POINT OF CARE TEST ORDERABLES F inal Result Performing Organization Address [facility] de Phone Number [facility] [address] [phone] * ECG 12 lead (12/06/2024 1:16 PM EDT) [facility] VENTRICULAR RATE EKG/MIN 90 BPM GE MUSE ATRIAL RATE (MCT) 90 BPM GE MUSE MA Interval 142 ms GE MUSE QRS-INTERVAL (MSEC) 92 ms GE MUSE QT Interval 378 ms GE MUSE QTC Interval 462 ms GE MUSE P [place] 28 degrees GE MUSE R AXIS (MCT) -4 degrees GE MUSE T Wave [place] 21 degrees GE MUSE [place] Diagnosis Normal sinus rhythm Septal infarct , age undetermined Confirmed by DEYSI FOSS M.D. ([id number]) on 12/07/2024 7:40:21 PM GE MUSE 12/06/2024 1:16 PM EDT 12/07/2024 7:40 PM EDT Deysi Foss MD ECG ORDERABLES Final Result Performing Organization Address City/[facility]/ZIP Co de Phone Number GE MUSE * (ABNORMAL) Glucose, Nova Meter (12/06/2024 10:36 AM EDT) POC-GLUCOSE 150(H) 70 - 110 mg/dL 12/06/2024 10:37 AM EDT [facility] Comment: In the event of poor peripheral blood flow, venous or arterial blood should be used due to the potential of erroneous results. Notified Nurse RBV [employer] [phone] 12/06/2024 10:37 AM EDT [facility] Blood WHOLE BLOOD / Unknown 12/06/2024 10:36 AM EDT 12/06/2024 10:37 AM EDT Narrative [facility] - 12/06/2024 10:37 AM EDT [employer] Att[employer] ID is - [id number] Mary Carmen Mcfadden MD POINT OF CARE TEST ORDERABLES F inal Result Performing Organization Address [facility] Co de Phone Number [facility] [address] [phone] * XR chest AP portable (12/06/2024 7:34 [...] Mike Pichardo. Transcribed by Sandra Ramsey PA-C. Blanka Malagon MD IMG DIAGNOSTIC IMAGING ORDERA BLES Final Result * (ABNORMAL) Glucose, Nova Meter (12/06/2024 5:26 AM EDT) POC-GLUCOSE 143(H) 70 - 110 mg/dL 12/06/2024 5:27 AM EDT [facility] Comment: In the event of poor peripheral blood flow, venous or arterial blood should be used due to the potential of erroneous results. Notified Nurse RBV [employer] Att[employer] [phone] 12/06/2024 5:27 AM EDT [facility] Blood WHOLE BLOOD / Unknown 12/06/2024 5:26 AM EDT 12/06/2024 5:27 AM EDT Narrative [facility] - 12/06/2024 5:27 AM EDT [employer] Attendant ID is - [id number] us Timothy Bai MD POINT OF CARE TEST ORDERAB LES Final Result Performing Organization Address [facility] Co de Phone Number [facility] [address] [phone] * (ABNORMAL) Ferritin (12/06/2024 3:13 AM EDT) Ferritin 256.82(H) 4.63 - 204.00 ng/mL 12/06/2024 8:25 AM EDT [facility] Blood Venipuncture / Unknown 12/06/2024 3:13 AM EDT 12/06/2024 3:50 AM EDT us Ariel Mills MD LAB BLOOD ORDERABLES Final Res ult [facility] [address] [phone] * Ammonia (12/06/2024 3:13 AM EDT) Ammonia 47 18 - 72 mol/L 12/06/2024 4:48 AM EDT [facility] Blood Venipuncture / Unknown 12/06/2024 3:13 AM EDT 12/06/2024 3:51 AM EDT us Timothy Bai MD LAB BLOOD ORDERABLES Final Result [facility] [address] [phone] * (ABNORMAL) Comprehensive Metabolic Panel (12/06/2024 3:13 AM EDT) Sodium 146(H) 136 - 145 meq/L 12/06/2024 4:26 AM EDT [facility] Potassium 3.9 3.4 - 5.1 meq/L 12/06/2024 4:26 AM EDT [facility] Chloride 116(H) 98 - 112 meq/L 12/06/2024 4:26 AM EDT [facility] CO2 20(L) 22 - 29 meq/L 12/06/2024 4:26 AM EDT [facility] Calcium 8.6 8.4 - 10.2 mg/dL 12/06/2024 4:26 AM EDT [facility] Glucose 149(H) 82 - 115 mg/dL 12/06/2024 4:26 AM EDT [facility] BUN 63.3(H) 9.8 - 20.1 mg/dL 12/06/2024 4:26 AM EDT [facility] Creatinine 3.37(H) 0.57 - 1.11 mg/dL 12/06/2024 4:26 AM EDT [facility] BUN/Creatinine 19 8 - 20 12/06/2024 4:26 AM EDT [facility] eGFR (mL/min/1.73m2) 15(L) >=60 mL/min/1. 73m2 12/06/2024 4:26 AM EDT [facility] Albumin 4.6 3.5 - 5.0 g/dL 12/06/2024 4:26 AM EDT [facility] Alkaline Phosphatase 47 40 - 150 U/L 12/06/2024 4:26 AM EDT [facility] [facility] ALT 11 <=34 U/L 12/06/2024 4:26 AM EDT [facility] Comment: ALT2 reagent used for testing does not contain P5P supplementation and therefore may miss ALT elevations in patients with B6 deficiency. This population may be as high as 10% in the [place], with risk factors including malabsorption, drug interactions, and alcoholic hepatitis. AST 21 11 - 34 U/L 12/06/2024 4:26 AM EDT [facility] Comment: AST2 reagent used for testing does not contain P5P supplementation and therefore may miss AST elevations in patients with B6 deficiency. This population may be as high as 10% in the [place], with risk factors including malabsorption, drug interactions, and alcoholic hepatitis. Total Bilirubin 1.2 0.2 - 1.2 mg/dL 12/06/2024 4:26 AM EDT [facility] Protein, Total 7.0 6.4 - 8.3 g/dL 12/06/2024 4:26 AM EDT [facility] Globulin 2.4(L) 2.5 - 4.1 g/dL 12/06/2024 4:26 AM EDT [facility] Anion Gap 14(H) 4 - 12 12/06/2024 4:26 AM T [facility] A/G Ratio 1.9 0.7 - 1.9 12/06/2024 4:26 AM EDT [facility] Osmolality Calc 311.4 mOsm/kg 4:26 AM T [facility] Blood Venipuncture / Unknown 12/06/2024 3:13 AM EDT 12/06/2024 3:50 AM EDT us Timothy Bai MD LAB BLOOD ORDERABLES Final Result [facility] [address] [phone] * Magnesium (12/06/2024 3:13 AM EDT) Magnesium 2.4 1.6 - 2.6 mg/dL 12/06/2024 4:26 AM EDT [facility] Blood Venipuncture / Unknown 12/06/2024 3:13 AM EDT 12/06/2024 3:50 AM EDT us Timothy Bai MD LAB BLOOD ORDERABLES Final Result [facility] [address] [phone] * (ABNORMAL) CBC - Hemogram (SJ-BKR) (12/06/2024 3:13 AM EDT) Pathologist [facility] [place] WBC 7.0 4.0 - 10.0 K/ L 12/06/2024 4:10 AM EDT [facility] RBC 2.83(L) 3.93 - 5.22 M/ L 12/06/2024 4:10 AM EDT [facility] Hemoglobin 8.7(L) 11.2 - 15.7 GM/DL 12/06/2024 4:10 AM EDT [facility] Hematocrit 28.2(L) 34.1 - 44.9 % 12/06/2024 4:10 AM EDT [facility] MCV 100(H) 79 - 95 fL 12/06/2024 4:10 AM EDT [facility] MCH 30.7 25.6 - 32.2 pg 12/06/2024 4:10 AM EDT [facility] MCHC 30.9(L) 32.2 - 35.5 GM/DL 12/06/2024 4:10 AM EDT [facility] RDW 17.2(H) 11.7 - 14.4 % 12/06/2024 4:10 AM EDT [facility] Platelets 80(L) 140 - 375 K/CU MM 12/06/2024 4:10 AM EDT [facility] MPV 11.7 9.4 - 12.3 fL 12/06/2024 4:10 AM EDT [facility] Blood Venipuncture / Unknown 12/06/2024 3:13 AM EDT 12/06/2024 3:53 AM EDT Timothy Bai MD LAB BLOOD ORDERABLES Final Result [facility] [address] [phone] * (ABNORMAL) Glucose, Nova Meter (12/05/2024 7:21 PM EDT) POC-GLUCOSE 145(H) 70 - 110 mg/dL 12/05/2024 7:22 PM EDT [facility] Comment: In the event of poor peripheral blood flow, venous or arterial blood should be used due to the potential of erroneous results. Notified Nurse RBV [employer] [phone] 12/05/2024 7:22 PM EDT [facility] Blood WHOLE BLOOD / Unknown 12/05/2024 7:21 PM EDT 12/05/2024 7:22 PM EDT Narrative [facility] - 12/05/2024 7:22 PM EDT [employer] Att[employer] ID is - [id number] Timothy Bai MD POINT OF CARE TEST ORDERAB LES Final Result [facility] [address] [phone] * (ABNORMAL) Glucose, Nova Meter (12/05/2024 5:01 PM EDT) POC-GLUCOSE 140(H) 70 - 110 mg/dL 12/05/2024 5:02 PM EDT [facility] Comment: In the event of poor peripheral blood flow, venous or arterial blood should be used due to the potential of erroneous results. Notified Nurse RBV [employer] Att[employer] [phone] 12/05/2024 5:02 PM EDT [facility] Blood WHOLE BLOOD / Unknown 12/05/2024 5:01 PM EDT 12/05/2024 5:02 PM EDT Narrative [facility] - 12/05/2024 5:02 PM EDT [employer] Att[employer] ID is - [id number] us Timothy Bai MD POINT OF CARE TEST ORDERAB LES Final Result Performing Organization Address [facility]/ZIP Co de Phone Number [facility] [address] [phone] * (ABNORMAL) Hemoglobin (12/05/2024 3:36 PM EDT) Hemoglobin 8.1(L) 11.2 - 15.7 GM/DL 12/05/2024 3:57 PM EDT [facility] Blood Venipuncture / Unknown 12/05/2024 3:36 PM EDT 12/05/2024 3:47 PM EDT us Timothy Bia MD LAB BLOOD ORDERABLES Final Result Performing Organization Address [facility]/ZIP Co de Phone Number [facility] [address] [phone] * (ABNORMAL) Glucose, Nova Meter (12/05/2024 10:23 AM EDT) POC-GLUCOSE 141(H) 70 - 110 mg/dL 12/05/2024 10:24 AM EDT [facility] Comment: In the event of poor peripheral blood flow, venous or arterial blood should be used due to the potential of erroneous results. Notified Nurse RBV Protocols Followed [employer] [phone] 12/05/2024 10:24 AM EDT [facility] Blood WHOLE BLOOD / Unknown 12/05/2024 10:23 AM EDT 12/05/2024 10:24 AM EDT Narrative [facility] - 12/05/2024 10:24 AM EDT [employer] Att[employer] ID is - [id number] us Timothy Bai MD POINT OF CARE TEST ORDERAB LES Final Result [facility] [address] [phone] * (ABNORMAL) Glucose, Nova Meter (12/05/2024 8:10 AM EDT) POC-GLUCOSE 123(H) 70 - 110 mg/dL 12/05/2024 8:27 AM EDT [facility] Comment: In the event of poor peripheral blood flow, venous or arterial blood should be used due to the potential of erroneous results. Notified Nurse RBV [employer] Att[employer] [phone] 12/05/2024 8:27 AM EDT [facility] Blood WHOLE BLOOD / Unknown 12/05/2024 8:10 AM EDT 12/05/2024 8:27 AM EDT Narrative [facility] - 12/05/2024 8:27 AM EDT [employer] Att[employer] ID is - [id number] us Timothy Bai MD POINT OF CARE TEST ORDERAB LES Final Result [facility] [address] [phone] * (ABNORMAL) Hemoglobin (12/05/2024 8:00 AM EDT) Hemoglobin 8.2(L) 11.2 - 15.7 GM/DL 12/05/2024 8:21 AM EDT [facility] Blood Venipuncture / Unknown 12/05/2024 8:00 AM EDT 12/05/2024 8:06 AM EDT Timothy Bai MD LAB BLOOD ORDERABLES Final Result [facility] [address] [phone] * Ammonia (12/05/2024 3:20 AM EDT) Ammonia 41 18 - 72 mol/L 12/05/2024 4:02 AM EDT [facility] Blood Venipuncture / Unknown 12/05/2024 3:20 AM EDT 12/05/2024 3:24 AM EDT us Timothy Bai MD LAB BLOOD ORDERABLES Final Result Performing Organization Address City/State/[facility] Co de Phone Number [facility] [address] [phone] * (ABNORMAL) Comprehensive Metabolic Panel (12/05/2024 3:20 AM EDT) Sodium 146(H) 136 - 145 meq/L 12/05/2024 4:11 AM EDT [facility] Potassium 3.6 3.4 - 5.1 meq/L 12/05/2024 4:11 AM EDT [facility] Chloride 117(H) 98 - 112 meq/L 12/05/2024 4:11 AM EDT [facility] CO2 20(L) 22 - 29 meq/L 12/05/2024 4:11 AM EDT [facility] Calcium 8.3(L) 8.4 - 10.2 mg/dL 12/05/2024 4:11 AM EDT [facility] Glucose 148(H) 82 - 115 mg/dL 12/05/2024 4:11 AM EDT [facility] BUN 59.4(H) 9.8 - 20.1 mg/dL 12/05/2024 4:11 AM EDT [facility] Creatinine 3.14(H) 0.57 - 1.11 mg/dL 12/05/2024 4:11 AM EDT [facility] BUN/Creatinine 19 8 - 20 12/05/2024 4:11 AM T [facility] eGFR (mL/min/1.73m2) 16(L) >=60 mL/min/1. 73m2 12/05/2024 4:11 AM EDT [facility] Albumin 4.3 3.5 - 5.0 g/dL 12/05/2024 4:11 AM EDT [facility] Alkaline Phosphatase 44 40 - 150 U/L 12/05/2024 4:11 AM EDT [facility] ALT 8 <=34 U/L 12/05/2024 4:11 AM EDT [facility] Comment: ALT2 reagent used for testing does not contain P5P supplementation and therefore may miss ALT elevations in patients with B6 deficiency. This population may be as high as 10% in the [place], with risk factors including malabsorption, drug interactions, and alcoholic hepatitis. AST 23 11 - 34 U/L 12/05/2024 4:11 AM EDT [facility] Comment: AST2 reagent used for testing does not contain P5P supplementation and therefore may miss AST elevations in patients with B6 deficiency. This population may be as high as 10% in the [place], with risk factors including malabsorption, drug interactions, and alcoholic hepatitis. Total Bilirubin 1.2 0.2 - 1.2 mg/dL 12/05/2024 4:11 AM EDT [facility] Protein, Total 6.4 6.4 - 8.3 g/dL 12/05/2024 4:11 AM EDT [facility] Globulin 2.1(L) 2.5 - 4.1 g/dL 12/05/2024 4:11 AM EDT [facility] Anion Gap 13(H) 4 - 12 12/05/2024 4:11 AM EDT [facility] A/G Ratio 2.0(H) 0.7 - 1.9 12/05/2024 4:11 AM EDT [facility] Osmolality Calc 310.0 mOsm/kg 4:11 AM EDT [facility] Blood Venipuncture / Unknown 12/05/2024 3:20 AM EDT 12/05/2024 3:24 AM EDT us Timothy Bai MD LAB BLOOD ORDERABLES Final Result [facility] [address] [phone] * Magnesium (12/05/2024 3:20 AM EDT) Pathologist [facility] [place] Magnesium 2.3 1.6 - 2.6 mg/dL 12/05/2024 4:11 AM EDT [facility] Blood Venipuncture / Unknown 12/05/2024 3:20 AM EDT 12/05/2024 3:24 AM EDT us Timothy Bai MD LAB BLOOD ORDERABLES Final Result Performing Organization Address City/State/[facility] Co de Phone Number [facility] [address] [phone] * (ABNORMAL) CBC - Hemogram (SJ-BKR) (12/05/2024 3:20 AM EDT) [facility] WBC 4.2 4.0 - 10.0 K/ L 12/05/2024 3:34 AM EDT [facility] RBC 2.64(L) 3.93 - 5.22 M/ L 12/05/2024 3:34 AM EDT [facility] Hemoglobin 8.2(L) 11.2 - 15.7 GM/DL 12/05/2024 3:34 AM EDT [facility] Hematocrit 25.9(L) 34.1 - 44.9 % 12/05/2024 3:34 AM EDT [facility] MCV 98(H) 79 - 95 fL 12/05/2024 3:34 AM EDT [facility] MCH 31.1 25.6 - 32.2 pg 12/05/2024 3:34 AM EDT [facility] MCHC 31.7(L) 32.2 - 35.5 GM/DL 12/05/2024 3:34 AM EDT [facility] RDW 17.1(H) 11.7 - 14.4 % 12/05/2024 3:34 AM EDT [facility] Platelets 60(L) 140 - 375 K/CU MM 12/05/2024 3:34 AM EDT [facility] MPV 11.3 9.4 - 12.3 fL 12/05/2024 3:34 AM EDT [facility] Blood Venipuncture / Unknown 12/05/2024 3:20 AM EDT 12/05/2024 3:24 AM EDT us Timothy Bai MD LAB BLOOD ORDERABLES Final Result Performing Organization Address City/[facility]/ZIP Co de Phone Number [facility] [address] [place] [address], [facility] [phone] * (ABNORMAL) Hemoglobin (12/04/2024 11:54 PM EDT) Pathologist [facility] [place] Hemoglobin 8.7(L) 11.2 - 15.7 GM/DL 12/05/2024 12:07 AM EDT [facility] Blood Venipuncture / Unknown 12/04/2024 11:54 PM EDT 12/04/2024 11:59 PM EDT Timothy Bai MD LAB BLOOD ORDERABLES Final Result Performing Organization Address [facility] Phone Number [facility] [address] [place] [address], [facility] [phone] * (ABNORMAL) Glucose, Nova Meter (12/04/2024 10:20 PM EDT) [facility] POC-GLUCOSE 147(H) 70 - 110 mg/dL 12/04/2024 10:22 PM EDT [facility] Comment: In the event of poor peripheral blood flow, venous or arterial blood should be used due to the potential of erroneous results. Protocols Followed [employer] [phone] 12/04/2024 10:22 PM EDT [facility] Blood WHOLE BLOOD / Unknown 12/04/2024 10:20 PM EDT 12/04/2024 10:21 PM EDT Narrative [facility] - 12/04/2024 10:22 PM EDT [employer] Att[employer] ID is - [id number] us Timothy Bai MD POINT OF CARE TEST ORDERAB LES Final Result Performing Organization Address [facility] Co de Phone Number [facility] [address] [phone] * ECG 12 lead (12/04/2024 8:08 PM EDT) SYSTOLIC BLOOD PRESSURE (MCT) 133 mmHg GE MUSE DIASTOLIC BLOOD PRESSURE (MCT) 61 mmHg GE MUSE VENTRICULAR RATE EKG/MIN 85 BPM GE MUSE ATRIAL RATE (MCT) 85 BPM GE MUSE MA Interval 140 ms GE MUSE QRS-INTERVAL (MSEC) 94 ms GE MUSE QT Interval 426 ms GE MUSE QTC Interval 506 ms GE MUSE P [place] 44 degrees GE MUSE R AXIS (MCT) 27 degrees GE MUSE T Wave [place] -27 degrees GE MUSE [place] Diagnosis Normal sinus rhythm Nonspecific T wave abnormality Abnormal ECG Confirmed by DEYSI FOSS M.D. ([id number]) on 12/05/2024 1:52:09 PM GE MUSE 12/04/2024 8:08 PM EDT 12/05/2024 1:52 PM EDT us Timothy Bai MD ECG ORDERABLES Final Resu lt GE MUSE * (ABNORMAL) Glucose, Nova Meter (12/04/2024 4:50 PM EDT) POC-GLUCOSE 137(H) 70 - 110 mg/dL 12/04/2024 4:51 PM EDT [facility] Comment: In the event of poor peripheral blood flow, venous or arterial blood should be used due to the potential of erroneous results. Protocols Followed [employer] [phone] 12/04/2024 4:51 PM EDT [facility] Blood WHOLE BLOOD / Unknown 12/04/2024 4:50 PM EDT 12/04/2024 4:51 PM EDT Narrative [facility] - 12/04/2024 4:51 PM EDT [employer] Att[employer] ID is - [id number] us Timothy Bai MD POINT OF CARE TEST ORDERAB LES Final Result [facility] [address] [phone] * (ABNORMAL) Hemoglobin (12/04/2024 4:27 PM EDT) Hemoglobin 8.9(L) 11.2 - 15.7 GM/DL 12/04/2024 4:36 PM EDT [facility] Blood Venipuncture / Unknown 12/04/2024 4:27 PM EDT 12/04/2024 4:31 PM EDT us Timothy Bai MD LAB BLOOD ORDERABLES Final Result [facility] [address] [place] [address], [facility] [phone] * (ABNORMAL) Basic Metabolic Panel (12/04/2024 10:53 AM EDT) Sodium 146(H) 136 - 145 meq/L 12/04/2024 11:17 AM EDT [facility] Potassium 3.6 3.4 - 5.1 meq/L 12/04/2024 11:17 AM EDT [facility] CO2 20(L) 22 - 29 meq/L 12/04/2024 11:17 AM EDT [facility] Chloride 116(H) 98 - 112 meq/L 12/04/2024 11:17 AM EDT [facility] Glucose 137(H) 82 - 115 mg/dL 12/04/2024 11:17 AM EDT [facility] BUN 61.1(H) 9.8 - 20.1 mg/dL 12/04/2024 11:17 AM EDT [facility] Creatinine 3.38(H) 0.57 - 1.11 mg/dL 12/04/2024 11:17 AM EDT [facility] BUN/Creatinine 18 8 - 20 12/04/2024 11:17 AM EDT [facility] Calcium 8.5 8.4 - 10.2 mg/dL 12/04/2024 11:17 AM EDT [facility] Anion Gap 14(H) 4 - 12 12/04/2024 11:17 AM EDT [facility] eGFR (mL/min/1.73m2) 15(L) >=60 mL/min/1.7 3m2 12/04/2024 11:17 AM EDT [facility] Osmolality Calc 310.0 mOsm/kg 11:17 AM EDT [facility] Blood Venipuncture / Unknown 12/04/2024 10:53 AM EDT 12/04/2024 10:57 AM EDT us Timothy Bai MD LAB BLOOD ORDERABLES Final Result Performing Organization Address City/[facility]/ZIP Co de Phone Number [facility] [address] [phone] * (ABNORMAL) Glucose, Nova Meter (12/04/2024 10:52 AM EDT) POC-GLUCOSE 136(H) 70 - 110 mg/dL 12/04/2024 10:57 AM EDT [facility] Comment: In the event of poor peripheral blood flow, venous or arterial blood should be used due to the potential of erroneous results. Notified Nurse RBV [employer] [phone] 12/04/2024 10:57 AM EDT [facility] Blood WHOLE BLOOD / Unknown 12/04/2024 10:52 AM EDT 12/04/2024 10:57 AM EDT Narrative [facility] - 12/04/2024 10:57 AM EDT [employer] Att[employer] ID is - [id number] us Timothy Bai MD POINT OF CARE TEST ORDERAB LES Final Result [facility] [address] [phone] * (ABNORMAL) CBC with automated diff (12/04/2024 8:15 AM EDT) WBC 4.1 4.0 - 10.0 K/ L 12/04/2024 9:56 AM EDT [facility] RBC 2.90(L) 3.93 - 5.22 M/ L 12/04/2024 9:56 AM EDT [facility] Hemoglobin 8.8(L) 11.2 - 15.7 GM/DL 12/04/2024 9:56 AM EDT [facility] Hematocrit 29.0(L) 34.1 - 44.9 % 12/04/2024 9:56 AM EDT [facility] MCV 100(H) 79 - 95 fL 12/04/2024 9:56 AM EDT [facility] MCH 30.3 25.6 - 32.2 pg 12/04/2024 9:56 AM EDT [facility] MCHC 30.3(L) 32.2 - 35.5 GM/DL 12/04/2024 9:56 AM EDT [facility] RDW 17.7(H) 11.7 - 14.4 % 12/04/2024 9:56 AM EDT [facility] Platelets 65(L) 140 - 375 K/CU MM 12/04/2024 9:56 AM EDT [facility] MPV 10.8 9.4 - 12.3 fL 12/04/2024 9:56 AM EDT [facility] % Neutros 79(H) 34 - 71 % 12/04/2024 9:56 AM EDT [facility] % Lymphs 12(L) 19 - 52 % 12/04/2024 9:56 AM EDT [facility] % Monos 9 5 - 13 % 12/04/2024 9:56 AM EDT [facility] % Eos 0(L) 1 - 6 % 12/04/2024 9:56 AM EDT [facility] % Baso 0 0 - 1 % 12/04/2024 9:56 AM EDT [facility] NRBC Absolute <0.01 0 - 0.012 K/ul 12/04/2024 9:56 AM EDT [facility] # Neutros 3.25 1.56 - 6.13 K/ L 12/04/2024 9:56 AM EDT [facility] # Lymphs 0.48(L) 1.18 - 3.74 K/ L 12/04/2024 9:56 AM EDT [facility] # Monos 0.35 0.24 - 0.86 K/ L 12/04/2024 9:56 AM EDT [facility] # Eos <0.03(L) 0.04 - 0.36 K/ L 12/04/2024 9:56 AM EDT [facility] # Baso <0.03 0.01 - 0.08 K/ L 12/04/2024 9:56 AM EDT [facility] Immature Granulocytes-Re lative 0.50(H) 0.01 - 0.43 % 12/04/2024 9:56 AM EDT [facility] # IG <0.03 0.00 - 0.03 K/uL 12/04/2024 9:56 AM EDT [facility] Blood Venipuncture / Unknown 12/04/2024 8:15 AM EDT 12/04/2024 8:32 AM EDT Narrative [facility] - 12/04/2024 9:56 AM EDT When [...] Bai MD LAB BLOOD ORDERABLES Final Result [facility] [address] [place] [address] * (ABNORMAL) Hemoglobin (12/04/2024 8:15 AM EDT) Hemoglobin 9.0(L) 11.2 - 15.7 GM/DL 12/04/2024 8:36 AM EDT [facility] Blood Venipuncture / Unknown 12/04/2024 8:15 AM EDT 12/04/2024 8:32 AM EDT Timothy Bai MD LAB BLOOD ORDERABLES Final Result [facility] [address] [phone] * ANCA Vasculitis Profile(SENDOUT) (12/04/2024 8:15 AM EDT) Myeloperoxidase (MPO) Ab, IgG 0 0 - 19 AU/mL 12/07/2024 8:52 AM EDT [facility] Comment: INTERPRETIVE INFORMATION: Myeloperoxidase Abs, IgG 19 AU/mL or Less ......... Negative 20-25 AU/mL .............. Equivocal 26 AU/mL or Greater ...... Positive Approximately 90% of patients with a P-ANCA pattern by IFA have antibodies specific for MPO. Serine Proteinase 3 (PR3) Ab, IgG 0 0 - 19 AU/mL 12/07/2024 8:52 AM EDT [facility] Comment: INTERPRETIVE INFORMATION: Serine Proteinase 3, IgG 19 AU/mL or Less ........ Negative 20-25 AU/mL ............. Equivocal 26 AU/mL or Greater ..... Positive Approximately 85% of patients with a C-ANCA pattern by IFA have antibodies specific for PR3. ANCA IFA Titer <1:20 <1:20 12/07/2024 8:52 AM EDT [facility] ANCA IFA Pattern None Detected None Detected 12/07/2024 8:52 AM EDT [facility] Comment: INTERPRETIVE INFORMATION: ANCA IFA Pattern Neutrophil Cytoplasmic Antibodies (C-ANCA = granular cytoplasmic staining, P-ANCA = perinuclear staining) are found in the serum of over 90 percent of patients with certain necrotizing systemic vasculitides, and usually in less than 5 percent of patients with collagen vascular disease or arthritis. Performed By: [email or web address] [address] [place] [id number] Yard Switch Operator: Lalo Mortensen MD, PhD CLIA Number: [id number] Blood Venipuncture / Unknown 12/04/2024 8:15 AM EDT 12/04/2024 8:32 AM EDT Hema Cervantes MD LAB BLOOD ORDERABLES Final Re sult Performing Organization Address [facility] Co de Phone Number [facility] [address] [phone] * JEANA Reflexive Profile(SENDOUT) (12/04/2024 8:15 AM EDT) Anti-Nuclear Ab (JEANA), IgG by SHARON None Detected None Detected 12/06/2024 3:51 PM EDT [facility] Comment: No Anti-Nuclear Antibodies (JEANA) detected by SHARON. The Extractable Nuclear Antigen Antibodies (STORE TEAM LEADER, Llanes, SSA 52, SSA 60, Scleroderma, Lilia-1 and SSB) and Double Stranded DNA (dsDNA) Antibody, IgG will not be performed. If suspicion of connective tissue disease is strong, and JEANA is negative by SHARON, consider testing for JEANA by IFA ([id number]). INTERPRETIVE INFORMATION: Anti-Nuclear Antibodies (JEANA), IgG by SHARON Antinuclear Antibodies (JEANA), IgG by SHARON: JEANA specimens are screened using enzyme-linked immunosorbent assay (SHARON) methodology. All SHARON results reported as Detected are further tested by indirect fluorescent assay (IFA) using HEp-2 substrate with an IgG-specific conjugate. The JEANA SHARON screen is designed to detect antibodies against dsDNA, histones, SS-A (Ro), SS-B (La), Llanes, Llanes/STORE TEAM LEADER, Scl-70, Lilia-1, centromeric proteins, other antigens extracted from the HEp-2 cell nucleus. JEANA SHARON assays have been reported to have lower sensitivities than JEANA IFA for systemic autoimmune rheumatic diseases (SARD). Negative results do not necessarily rule out SARD. Performed By: [email or web address] [address] [place] [address] Yard Switch Operator: Lalo Mortensen MD, PhD CLIA Number: [id number] Blood Venipuncture / Unknown 12/04/2024 8:15 AM EDT 12/04/2024 8:32 AM EDT us Hema Cervantes MD LAB BLOOD ORDERABLES Final Re sult Performing Organization Address [facility] Co de Phone Number [facility] [address] [place] [address], [facility] [phone] * XR chest AP portable (12/04/2024 6:49 [...] Transcribed by Regina Villasenor PA-C. Kirsty Tuttle APRN IMG DIAGNOSTIC IMAGING ORDER LONNY Final Result * (ABNORMAL) Blood gas, arterial (12/04/2024 6:34 AM EDT) pH, Arterial 7.29(L) 7.35 - 7.45 12/04/2024 7:10 AM EDT [facility] pCO2, Arterial 43 35 - 45 mm Hg 12/04/2024 7:10 AM EDT [facility] pO2, Arterial 106(H) 80 - 100 mm Hg 12/04/2024 7:10 AM EDT [facility] HCO3, Arterial 21 20 - 26 mmol/L 12/04/2024 7:10 AM EDT [facility] Base Excess, Arterial -5.2(L) -2.0 - 2.0 mmol/L 12/04/2024 7:10 AM EDT [facility] O2 Sat, Arterial 98.8 95.0 - 100.0 % 12/04/2024 7:10 AM EDT [facility] CTO2 ARTERIAL 11.9 mmol/L 12/04/2024 7:10 AM EDT [facility] THB ARTERIAL 8.6(L) 12.0 - 18.0 g/dL 12/04/2024 7:10 AM EDT [facility] COLLECTION SITE Right Brachial 12/04/2024 7:10 AM EDT [facility] Arterial Puncture Yes 12/04/2024 7:10 AM EDT [facility] Blood Gas O2 Delivery Device Cannula 12/04/2024 7:10 AM EDT [facility] Oxygen Flow Rate 3 12/05/19 7:10 AM EDT [facility] Blood Gas PT Temperature C 37.0 12/04/2024 7:10 AM EDT [facility] Sen's Test Not Applicable 12/05/19 7:10 AM EDT [facility] Critical Values Notification Critical Blood gas called to DAYANARA MATIAS . Results acknowledged/r ead back to [id number] and confirmed on 12/04/2024 07:09 12/04/2024 7:10 AM EDT [facility] ABG Number of Draw Attempts 1 12/04/2024 7:10 AM EDT [facility] FIO2 12/04/2024 7:10 AM EDT [facility] Blood Gas Temperature Corrected Results No No 12/04/2024 7:10 AM EDT [facility] Blood, Arterial 12/04/2024 6 :34 AM EDT 12/04/2024 7:10 AM EDT us Kirsty Tuttle APRN LAB BLOOD ORDERABLES Final R esult [facility] [address] [phone] * (ABNORMAL) Glucose, Nova Meter (12/04/2024 6:13 AM EDT) [facility] POC-GLUCOSE 155(H) 70 - 110 mg/dL 12/04/2024 6:14 AM EDT [facility] Comment: In the event of poor peripheral blood flow, venous or arterial blood should be used due to the potential of erroneous results. Protocols Followed [employer] [id number] 12/04/2024 6:14 AM EDT [facility] Blood WHOLE BLOOD / Unknown 12/04/2024 6:13 AM EDT 12/04/2024 6:14 AM EDT Narrative [facility] - 12/04/2024 6:14 AM EDT [employer] ID is - [id number] us Timothy Bai MD POINT OF CARE TEST ORDERAB LES Final Result [facility] [address] [phone] * (ABNORMAL) CBC with automated diff (12/04/2024 3:35 AM EDT) [facility] WBC 3.2(L) 4.0 - 10.0 K/ L 12/04/2024 3:55 AM EDT [facility] RBC 2.88(L) 3.93 - 5.22 M/ L 12/04/2024 3:55 AM EDT [facility] Hemoglobin 8.9(L) 11.2 - 15.7 GM/DL 12/04/2024 3:55 AM EDT [facility] Hematocrit 28.4(L) 34.1 - 44.9 % 12/04/2024 3:55 AM EDT [facility] MCV 99(H) 79 - 95 fL 12/04/2024 3:55 AM EDT [facility] MCH 30.9 25.6 - 32.2 pg 12/04/2024 3:55 AM EDT [facility] MCHC 31.3(L) 32.2 - 35.5 GM/DL 12/04/2024 3:55 AM EDT [facility] RDW 17.4(H) 11.7 - 14.4 % 12/04/2024 3:55 AM EDT [facility] Platelets 61(L) 140 - 375 K/CU MM 12/04/2024 3:55 AM EDT [facility] MPV 11.1 9.4 - 12.3 fL 12/04/2024 3:55 AM EDT [facility] % Neutros 80(H) 34 - 71 % 12/04/2024 3:55 AM T [facility] % Lymphs 12(L) 19 - 52 % 12/04/2024 3:55 AM EDT [facility] % Monos 8 5 - 13 % 12/04/2024 3:55 AM EDT [facility] % Eos 0(L) 1 - 6 % 12/04/2024 3:55 AM T [facility] % Baso 0 0 - 1 % 12/04/2024 3:55 AM T [facility] NRBC Absolute <0.01 0 - 0.012 K/ul 12/04/2024 3:55 AM T [facility] # Neutros 2.58 1.56 - 6.13 K/ L 12/04/2024 3:55 AM T [facility] # Lymphs 0.39(L) 1.18 - 3.74 K/ L 12/04/2024 3:55 AM EDT [facility] # Monos 0.25 0.24 - 0.86 K/ L 12/04/2024 3:55 AM T [facility] # Eos <0.03(L) 0.04 - 0.36 K/ L 12/04/2024 3:55 AM T [facility] # Baso <0.03 0.01 - 0.08 K/ L 12/04/2024 3:55 AM EDT [facility] Immature Granulocytes-Re lative 0.30 0.01 - 0.43 % 12/04/2024 3:55 AM [facility] # IG <0.03 0.00 - 0.03 K/uL 12/04/2024 3:55 AM [facility] Blood Venipuncture / Unknown 12/04/2024 3:35 AM EDT 12/04/2024 3:41 AM EDT Narrative [facility] - 12/04/2024 3:55 AM EDT When [...] Blast? Flag noted Atypical Lymph flag noted Kirsty Tuttle APRN LAB BLOOD ORDERABLES Final R esult Performing Organization Address City/[facility]/ZIP Co de Phone Number [facility] [address] [phone] * Ammonia (12/04/2024 3:35 AM EDT) Ammonia 30 18 - 72 mol/L 12/04/2024 3:57 AM EDT [facility] Blood Venipuncture / Unknown 12/04/2024 3:35 AM EDT 12/04/2024 3:41 AM EDT Timothy Bai MD LAB BLOOD ORDERABLES Final Result Performing Organization Address [facility] Co de Phone Number [facility] [address] [phone] * Phosphorus (12/04/2024 3:34 AM EDT) Phosphorus 4.2 2.5 - 4.5 mg/dL 12/04/2024 4:04 AM EDT [facility] Blood Venipuncture / Unknown 12/04/2024 3:34 AM EDT 12/04/2024 3:41 AM EDT Kirsty Tuttle APRN LAB BLOOD ORDERABLES Final R esult Performing Organization Address [facility] Co de Phone Number [facility] [address] [phone] * (ABNORMAL) Comprehensive Metabolic Panel (12/04/2024 3:34 AM EDT) Sodium 143 136 - 145 meq/L 12/04/2024 4:04 AM [facility] Potassium 3.7 3.4 - 5.1 meq/L 12/04/2024 4:04 AM [facility] Chloride 115(H) 98 - 112 meq/L 12/04/2024 4:04 AM [facility] CO2 20(L) 22 - 29 meq/L 12/04/2024 4:04 AM [facility] Calcium 8.3(L) 8.4 - 10.2 mg/dL 12/04/2024 4:04 AM [facility] Glucose 203(H) 82 - 115 mg/dL 12/04/2024 4:04 AM [facility] BUN 58.6(H) 9.8 - 20.1 mg/dL 12/04/2024 4:04 AM [facility] Creatinine 3.43(H) 0.57 - 1.11 mg/dL 12/04/2024 4:04 AM [facility] BUN/Creatinine 17 8 - 20 12/04/2024 4:04 AM [facility] eGFR (mL/min/1.73m2) 15(L) >=60 mL/min/1. 73m2 12/04/2024 4:04 AM [facility] Albumin 4.2 3.5 - 5.0 g/dL 12/04/2024 4:04 AM [facility] Alkaline Phosphatase 47 40 - 150 U/L 12/04/2024 4:04 AM [facility] ALT 11 <=34 U/L 12/04/2024 4:04 AM [facility] Comment: ALT2 reagent used for testing does not contain P5P supplementation and therefore may miss ALT elevations in patients with B6 deficiency. This population may be as high as 10% in the [place], with risk factors including malabsorption, drug interactions, and alcoholic hepatitis. AST 21 11 - 34 U/L 12/04/2024 4:04 AM [facility] Comment: AST2 reagent used for testing does not contain P5P supplementation and therefore may miss AST elevations in patients with B6 deficiency. This population may be as high as 10% in the [place], with risk factors including malabsorption, drug interactions, and alcoholic hepatitis. Total Bilirubin 1.1 0.2 - 1.2 mg/dL 12/04/2024 4:04 AM EDT [facility] Protein, Total 6.7 6.4 - 8.3 g/dL 12/04/2024 4:04 AM EDT [facility] Globulin 2.5 2.5 - 4.1 g/dL 12/04/2024 4:04 AM EDT [facility] Anion Gap 12 4 - 12 12/04/2024 4:04 AM EDT [facility] A/G Ratio 1.7 0.7 - 1.9 12/04/2024 4:04 AM EDT [facility] Osmolality Calc 307.2 mOsm/kg 4:04 AM EDT [facility] Blood Venipuncture / Unknown 12/04/2024 3:34 AM EDT 12/04/2024 3:41 AM EDT Timothy Bai MD LAB BLOOD ORDERABLES Final Result [facility] [address] [phone] * Magnesium (12/04/2024 3:34 AM EDT) Magnesium 2.5 1.6 - 2.6 mg/dL 12/04/2024 4:04 AM EDT [facility] Blood Venipuncture / Unknown 12/04/2024 3:34 AM EDT 12/04/2024 3:41 AM EDT Timothy Bai MD LAB BLOOD ORDERABLES Final Result [facility] [address] [phone] * ECG 12 lead (12/04/2024 3:25 AM EDT) Pathologist [facility] [place] SYSTOLIC BLOOD PRESSURE (MCT) 165 mmHg GE MUSE DIASTOLIC BLOOD PRESSURE (MCT) 77 mmHg GE MUSE VENTRICULAR RATE EKG/MIN 80 BPM GE MUSE ATRIAL RATE (MCT) 80 BPM GE MUSE MA Interval 154 ms GE MUSE QRS-INTERVAL (MSEC) 76 ms GE MUSE QT Interval 380 ms GE MUSE QTC Interval 438 ms GE MUSE P [place] 47 degrees GE MUSE R AXIS (MCT) 44 degrees GE MUSE T Wave [place] -30 degrees GE MUSE [place] Diagnosis Normal sinus rhythm Low voltage QRS Nonspecific T wave abnormality Confirmed by DEYSI FOSS M.D. ([id number]) on 12/04/2024 11:05:22 AM GE MUSE 12/04/2024 3:25 AM EDT 12/04/2024 11:05 AM EDT us Deysi Foss MD ECG ORDERABLES Final Result Performing Organization Address City/[facility]/ZIP Co de Phone Number GE MUSE * (ABNORMAL) Hemoglobin (12/04/2024 1:04 AM EDT) [facility] Hemoglobin 9.0(L) 11.2 - 15.7 GM/DL 12/04/2024 1:30 AM EDT [facility] Blood Venipuncture / Unknown 12/04/2024 1:04 AM EDT 12/04/2024 1:20 AM EDT us Timothy Bai MD LAB BLOOD ORDERABLES Final Result [facility] [address] [phone] * (ABNORMAL) Glucose, Nova Meter (12/03/2024 9:41 PM EDT) [facility] POC-GLUCOSE 146(H) 70 - 110 mg/dL 12/03/2024 9:43 PM EDT [facility] Comment: In the event of poor peripheral blood flow, venous or arterial blood should be used due to the potential of erroneous results. Protocols Followed [employer] [phone] 12/03/2024 9:43 PM EDT [facility] Blood WHOLE BLOOD / Unknown 12/03/2024 9:41 PM EDT 12/03/2024 9:43 PM EDT Narrative [facility] - 12/03/2024 9:43 PM EDT [employer] [facility] ID is - [id number] Timothy Bai MD POINT OF CARE TEST ORDERAB LES Final Result Performing Organization Address City/[facility]/ZIP Co de Phone Number [facility] [address] [phone] * (ABNORMAL) Glucose, Nova Meter (12/03/2024 5:19 PM EDT) [facility] POC-GLUCOSE 146(H) 70 - 110 mg/dL 12/03/2024 5:24 PM EDT [facility] Comment: In the event of poor peripheral blood flow, venous or arterial blood should be used due to the potential of erroneous results. Notified Nurse RBV [employer] [id number] 12/03/2024 5:24 PM EDT [facility] Blood WHOLE BLOOD / Unknown 12/03/2024 5:19 PM EDT 12/03/2024 5:24 PM EDT Narrative [facility] - 12/03/2024 5:24 PM EDT [employer] ID is - [id number] Timothy Bai MD POINT OF CARE TEST ORDERAB LES Final Result Performing Organization Address City/[facility]/ZIP Co de Phone Number [facility] [address] [phone] * XR chest AP portable (12/03/2024 4:45 [...] C Calhoun MD us Kirsty Tuttle APRN IM DIAGNOSTIC IMAGING ORDER LONNY Final Result * ECG 12 lead (12/03/2024 2:16 PM EDT) VENTRICULAR RATE EKG/MIN 136 BPM GE MUSE ATRIAL RATE (MCT) 73 BPM GE MUSE QRS-INTERVAL (MSEC) 88 ms GE MUSE QT Interval 304 ms GE MUSE QTC Interval 457 ms GE MUSE R AXIS (MCT) -11 degrees GE MUSE T Wave [place] -58 degrees GE MUSE [place] Diagnosis Atrial fibrillation with rapid ventricular response Possible Anterolateral infarct , age undetermined Possible abberancy Confirmed by DEYSI FSOS M.D. ([id number]) on 12/03/2024 5:58:45 PM GE MUSE 12/03/2024 2:16 PM EDT 12/03/2024 5:58 PM EDT us Timothy Bai MD ECG ORDERABLES Final Resu lt GE MUSE * (ABNORMAL) Glucose, Nova Meter (12/03/2024 10:45 AM EDT) POC-GLUCOSE 156(H) 70 - 110 mg/dL 12/03/2024 10:49 AM EDT [facility] Comment: In the event of poor peripheral blood flow, venous or arterial blood should be used due to the potential of erroneous results. Notified Nurse RBV [employer] [phone] 12/03/2024 10:49 AM EDT [facility] Blood WHOLE BLOOD / Unknown 12/03/2024 10:45 AM EDT 12/03/2024 10:49 AM EDT Narrative [facility] - 12/03/2024 10:49 AM EDT [employer] ID is - [id number] Timothy Bai MD POINT OF CARE TEST ORDERAB LES Final Result Performing Organization Address [facility] Co de Phone Number [facility] [address] [phone] * ECG 12 lead (12/03/2024 10:39 AM EDT) VENTRICULAR RATE EKG/MIN 97 BPM GE MUSE ATRIAL RATE (MCT) 97 BPM GE MUSE MA Interval 150 ms GE MUSE QRS-INTERVAL (MSEC) 88 ms GE MUSE QT Interval 362 ms GE MUSE QTC Interval 459 ms GE MUSE P [place] 40 degrees GE MUSE R AXIS (MCT) 8 degrees GE MUSE T Wave [place] -8 degrees GE MUSE [place] Diagnosis Normal sinus rhythm Normal ECG No previous ECGs available Confirmed by DEYSI FOSS M.D. ([id number]) on 12/03/2024 5:59:01 PM GE MUSE 12/03/2024 10:3 9 AM EDT 12/03/2024 5:59 PM EDT Timothy Bai MD ECG ORDERABLES Final Resu lt Performing Organization Address City/[facility]/ZIP Co de Phone Number GE MUSE * (ABNORMAL) CBC with automated diff (12/03/2024 8:31 AM EDT) WBC 2.8(L) 4.0 - 10.0 K/ L 12/03/2024 9:00 AM EDT [facility] RBC 2.68(L) 3.93 - 5.22 M/ L 12/03/2024 9:00 AM EDT [facility] Hemoglobin 8.2(L) 11.2 - 15.7 GM/DL 12/03/2024 9:00 AM EDT [facility] Hematocrit 26.1(L) 34.1 - 44.9 % 12/03/2024 9:00 AM EDT [facility] MCV 97(H) 79 - 95 fL 12/03/2024 9:00 AM EDT [facility] MCH 30.6 25.6 - 32.2 pg 12/03/2024 9:00 AM EDT [facility] MCHC 31.4(L) 32.2 - 35.5 GM/DL 12/03/2024 9:00 AM EDT [facility] RDW 17.5(H) 11.7 - 14.4 % 12/03/2024 9:00 AM EDT [facility] Platelets 55(L) 140 - 375 K/CU MM 12/03/2024 9:00 AM T [facility] MPV 10.0 9.4 - 12.3 fL 12/03/2024 9:00 AM EDT [facility] % Neutros 79(H) 34 - 71 % 12/03/2024 9:00 AM EDT [facility] % Lymphs 13(L) 19 - 52 % 12/03/2024 9:00 AM EDT [facility] % Monos 6 5 - 13 % 12/03/2024 9:00 AM EDT [facility] % Eos 0(L) 1 - 6 % 12/03/2024 9:00 AM EDT [facility] % Baso 0 0 - 1 % 12/03/2024 9:00 AM EDT [facility] NRBC Absolute <0.01 0 - 0.012 K/ul 12/03/2024 9:00 AM EDT [facility] # Neutros 2.22 1.56 - 6.13 K/ L 12/03/2024 9:00 AM EDT [facility] # Lymphs 0.37(L) 1.18 - 3.74 K/ L 12/03/2024 9:00 AM EDT [facility] # Monos 0.18(L) 0.24 - 0.86 K/ L 12/03/2024 9:00 AM EDT [facility] # Eos <0.03(L) 0.04 - 0.36 K/ L 12/03/2024 9:00 AM EDT [facility] # Baso <0.03 0.01 - 0.08 K/ L 12/03/2024 9:00 AM EDT [facility] Immature Granulocytes-Re lative 0.70(H) 0.01 - 0.43 % 12/03/2024 9:00 AM EDT [facility] # IG <0.03 0.00 - 0.03 K/uL 12/03/2024 9:00 AM EDT [facility] Blood Venipuncture / Unknown 12/03/2024 8:31 AM EDT 12/03/2024 8:40 AM EDT Narrative [facility] - 12/03/2024 9:00 AM EDT When [...] BLOOD ORDERABLES Final Result Performing Organization Address City/[facility]/ZIP Co de Phone Number [facility] [address] [place] [address] * Creatine Kinase (CK) (12/03/2024 7:39 AM EDT) Total CK 55 29 - 168 U/L 12/03/2024 6:19 PM EDT [facility] Blood Venipuncture / Unknown 12/03/2024 7:39 AM EDT 12/03/2024 5:52 PM EDT us Hema Cervantes MD LAB BLOOD ORDERABLES Final Re sult Performing Organization Address [facility]/State/ZIP Co de Phone Number [facility] [address] [place] [address] * Ammonia (12/03/2024 7:39 AM EDT) Ammonia 36 18 - 72 mol/L 12/03/2024 7:56 AM EDT [facility] Blood Venipuncture / Unknown 12/03/2024 7:39 AM EDT 12/03/2024 7:45 AM EDT Narrative [facility] - 12/03/2024 7:56 AM EDT Specimen slightly hemolyzed us Timothy Bai MD LAB BLOOD ORDERABLES Final Result [facility] [address] [phone] * (ABNORMAL) Comprehensive Metabolic Panel (12/03/2024 7:39 AM EDT) Sodium 147(H) 136 - 145 meq/L 12/03/2024 8:05 AM EDT [facility] Potassium 4.1 3.4 - 5.1 meq/L 12/03/2024 8:05 AM EDT [facility] Chloride 119(H) 98 - 112 meq/L 12/03/2024 8:05 AM EDT [facility] CO2 20(L) 22 - 29 meq/L 12/03/2024 8:05 AM EDT [facility] Calcium 8.3(L) 8.4 - 10.2 mg/dL 12/03/2024 8:05 AM EDT [facility] Glucose 145(H) 82 - 115 mg/dL 12/03/2024 8:05 AM EDT [facility] BUN 53.7(H) 9.8 - 20.1 mg/dL 12/03/2024 8:05 AM EDT [facility] Creatinine 3.48(H) 0.57 - 1.11 mg/dL 12/03/2024 8:05 AM EDT [facility] BUN/Creatinine 15 8 - 20 12/03/2024 8:05 AM [facility] eGFR (mL/min/1.73m2) 14(L) >=60 mL/min/1. 73m2 12/03/2024 8:05 AM EDT [facility] Albumin 4.4 3.5 - 5.0 g/dL 12/03/2024 8:05 AM EDT [facility] Alkaline Phosphatase 49 40 - 150 U/L 12/03/2024 8:05 AM [facility] ALT 7 <=34 U/L 12/03/2024 8:05 AM T [facility] Comment: ALT2 reagent used for testing does not contain P5P supplementation and therefore may miss ALT elevations in patients with B6 deficiency. This population may be as high as 10% in the [place], with risk factors including malabsorption, drug interactions, and alcoholic hepatitis. AST 21 11 - 34 U/L 12/03/2024 8:05 AM T [facility] Comment: AST2 reagent used for testing does not contain P5P supplementation and therefore may miss AST elevations in patients with B6 deficiency. This population may be as high as 10% in the [place], with risk factors including malabsorption, drug interactions, and alcoholic hepatitis. Total Bilirubin 1.1 0.2 - 1.2 mg/dL 12/03/2024 8:05 AM EDT [facility] Protein, Total 6.8 6.4 - 8.3 g/dL 12/03/2024 8:05 AM T [facility] Globulin 2.4(L) 2.5 - 4.1 g/dL 12/03/2024 8:05 AM [facility] Anion Gap 12 4 - 12 12/03/2024 8:05 AM [facility] A/G Ratio 1.8 0.7 - 1.9 12/03/2024 8:05 AM [facility] Osmolality Calc 309.7 mOsm/kg 8:05 AM [facility] Blood Venipuncture / Unknown 12/03/2024 7:39 AM EDT 12/03/2024 7:46 AM EDT us Timothy Bai MD LAB BLOOD ORDERABLES Final Result [facility] [address] [phone] * Magnesium (12/03/2024 7:39 AM EDT) Magnesium 2.5 1.6 - 2.6 mg/dL 12/03/2024 8:05 AM EDT [facility] Blood Venipuncture / Unknown 12/03/2024 7:39 AM EDT 12/03/2024 7:46 AM EDT Timothy Bai MD LAB BLOOD ORDERABLES Final Result [facility] [address] [phone] * (ABNORMAL) Glucose, Nova Meter (12/03/2024 5:13 AM EDT) [facility] POC-GLUCOSE 142(H) 70 - 110 mg/dL 12/03/2024 5:15 AM EDT [facility] Comment: In the event of poor peripheral blood flow, venous or arterial blood should be used due to the potential of erroneous results. Protocols Followed [employer] [phone] 12/03/2024 5:15 AM EDT [facility] Blood WHOLE BLOOD / Unknown 12/03/2024 5:13 AM EDT 12/03/2024 5:15 AM EDT Narrative [facility] - 12/03/2024 5:15 AM EDT [employer] ID is - [id number] Timothy Bai MD POINT OF CARE TEST ORDERAB LES Final Result [facility] [address] [phone] * (ABNORMAL) Glucose, Nova Meter (12/03/2024 1:12 AM EDT) Pathologist [facility] [place] POC-GLUCOSE 168(H) 70 - 110 mg/dL 12/03/2024 1:13 AM EDT [facility] Comment: In the event of poor peripheral blood flow, venous or arterial blood should be used due to the potential of erroneous results. Protocols Followed [employer] [facility] [employer] [id number] 12/03/2024 1:13 AM EDT [facility] Blood WHOLE BLOOD / Unknown 12/03/2024 1:12 AM EDT 12/03/2024 1:13 AM EDT Narrative [facility] - 12/03/2024 1:13 AM EDT [employer] Att[employer] ID is - [id number] us Timothy Bai MD POINT OF CARE TEST ORDERAB LES Final Result [facility] [address] [phone] * (ABNORMAL) Glucose, Nova Meter (12/03/2024 1:10 AM EDT) POC-GLUCOSE 164(H) 70 - 110 mg/dL 12/03/2024 1:12 AM EDT [facility] Comment: In the event of poor peripheral blood flow, venous or arterial blood should be used due to the potential of erroneous results. Protocols Followed [employer] [facility] [employer] [id number] 12/03/2024 1:12 AM EDT [facility] Blood WHOLE BLOOD / Unknown 12/03/2024 1:10 AM EDT 12/03/2024 1:12 AM EDT Narrative [facility] - 12/03/2024 1:12 AM EDT [employer] ID is - [id number] us Timothy Bai MD POINT OF CARE TEST ORDERAB LES Final Result Performing Organization Address City/[facility] Co de Phone Number [facility] [address] [phone] * (ABNORMAL) Hemoglobin (12/02/2024 11:06 PM EDT) Hemoglobin 8.9(L) 11.2 - 15.7 GM/DL 12/02/2024 11:18 PM EDT [facility] Blood Venipuncture / Unknown 12/02/2024 11:06 PM EDT 12/02/2024 11:15 PM EDT us Denilson Hodgson DO LAB BLOOD ORDERABLES Final Res ult [facility] [address] [phone] * (ABNORMAL) Glucose, Nova Meter (12/02/2024 8:06 PM EDT) POC-GLUCOSE 144(H) 70 - 110 mg/dL 12/02/2024 8:08 PM EDT [facility] Comment: In the event of poor peripheral blood flow, venous or arterial blood should be used due to the potential of erroneous results. Protocols Followed [employer] [id number] 12/02/2024 8:08 PM EDT [facility] Blood WHOLE BLOOD / Unknown 12/02/2024 8:06 PM EDT 12/02/2024 8:08 PM EDT Narrative [facility] - 12/02/2024 8:08 PM EDT [employer] ID is - [id number] us Timothy Bai MD POINT OF CARE TEST ORDERAB LES Final Result Performing Organization Address [facility]/ZIP Co de Phone Number [facility] [address] [phone] * (ABNORMAL) Hemoglobin (12/02/2024 6:03 PM EDT) Pathologist [facility] [place] Hemoglobin 9.1(L) 11.2 - 15.7 GM/DL 12/02/2024 6:24 PM EDT [facility] Blood Venipuncture / Unknown 12/02/2024 6:03 PM EDT 12/02/2024 6:19 PM EDT us Timothy Bai MD LAB BLOOD ORDERABLES Final Result Performing Organization Address City/[facility]/ZIP Co de Phone Number [facility] [address] [phone] * (ABNORMAL) Glucose, Nova Meter (12/02/2024 5:18 PM EDT) POC-GLUCOSE 128(H) 70 - 110 mg/dL 12/02/2024 5:21 PM EDT [facility] Comment: In the event of poor peripheral blood flow, venous or arterial blood should be used due to the potential of erroneous results. Notified Nurse RBV [employer] Room Attendant [phone] 12/02/2024 5:21 PM EDT [facility] Blood WHOLE BLOOD / Unknown 12/02/2024 5:18 PM EDT 12/02/2024 5:20 PM EDT Narrative [facility] - 12/02/2024 5:21 PM EDT Men[employer]S Locker Room Attendant ID is - [id number] Timothy Bai MD POINT OF CARE TEST ORDERAB LES Final Result Performing Organization Address City/State/[facility] Co de Phone Number [facility] [address] [place] [address] * Transfuse RBC (12/02/2024 5:03 PM EDT) Timothy Bai MD FS_MODEL_IP_BLOOD TRANSFUS ION ORDERABLES Final Result * Transfuse RBC: 1 Units (12/02/2024 5:03 PM EDT) Timothy Bai MD FS_MODEL_IP_BLOOD TRANSFUS ION ORDERABLES Final Result * (ABNORMAL) Glucose, Nova Meter (12/02/2024 12:51 PM EDT) Pathologist [facility] [place] POC-GLUCOSE 112(H) 70 - 110 mg/dL 12/02/2024 12:53 PM EDT [facility] Comment: In the event of poor peripheral blood flow, venous or arterial blood should be used due to the potential of erroneous results. Notified Nurse RBV [employer] Room Attendant [phone] 12/02/2024 12:53 PM EDT [facility] Blood WHOLE BLOOD / Unknown 12/02/2024 12:51 PM EDT 12/02/2024 12:53 PM EDT Narrative [facility] - 12/02/2024 12:53 PM EDT Men[employer]S Locker Room Attendant ID is - [id number] us Timothy Bai MD POINT OF CARE TEST ORDERAB LES Final Result [facility] [address] [place] [address], [facility] [phone] * CT bone marrow biopsy (12/02/2024 12:24 [...] Pancytopenia. ATTENDING RADIOLOGIST: Dr. Haseeb Gil. PHYSICIAN CONCRETE WALL GRINDER OPERATOR: Sandra Ramsey PA-C PROCEDURE: After informed consent [...] Pancytopenia. ATTENDING RADIOLOGIST: Dr. Haseeb Gil. PHYSICIAN CONCRETE WALL GRINDER OPERATOR: Sandra Ramsey PA-C PROCEDURE: After informed consent [...] Haseeb Gil. Transcribed by Sandra Ramsey PA-C. us Laura Rangel MD [facility] CT ORDERABLES Final Result * [facility] BONE MARROW SMEAR, ASPIRATION, AND STAIN (12/02/2024 12:06 PM EDT) AP RESULT See Note: [facility] Comment: [facility] [address] [place] [address] or [phone] Joe Carlos M.D., Wire Fence Builder PATIENT NAME LABORATORY NO. MARY OLIVA. [id number] [facility] AGE SEX SSN CLIENT REF # [id number] F [id number] [address] [place] [address] REQUESTING Aleksandr ATTENDING Aleksandr. COPY TO.. LAURA RANGEL DATE COLLECTED DATE RECEIVED DATE REPORTED 12/02/2024 12/02/2024 12/06/2024 ADDENDUM PRESENT ADDENDUM: Cytogenetics shows a normal female karyotype, 46,XX[20]. The original diagnosis remains unchanged. Verified by Heydi Mak M.D., MPH on 12/13/2024 Professional interpretation rendered by Heydi Mak M.D., MPH at [facility], [address] [place] [address]. DIAGNOSIS: PERIPHERAL SMEAR , BONE MARROW ASPIRATION [...] CD38, CD45, CD56, CD57, CD117, CD123, HLA-DR, Sunnyslope, and Lambda. These tests use analyte specific [...] rendered by Heydi Mak M.D., MPH at [facility], [facility], [address] [place] [address]. GROSS DESCRIPTION: A. Received 1 peripheral blood smear slide for review. B. Received 5 bone marrow aspirate smear slides for review. 4 additional bone marrow aspirate smear slides made at [facility]. C. Received in a purple top tube [...] BY: Heydi Mak M.D., MPH CPT CODES: 56491, 2FLP, 90142, [id number], [id number], 10568, 91491, [id number] Bone Marrow BONE MARROW STRUCTURE / Unknown 12/02/2024 12:06 PM EDT Laura Rangel MD PATHOLOGY/CYTOLOGY ORDERABLES Edited Result - Final [facility] [address] [place] [address] * Prepare RBC: 1 Units (12/02/2024 9:36 AM EDT) Issue Date/Time [id number] [facility] [place] Product Identification Red Blood Cells [facility] [place]) Product Code [id number] [facility] [place] Status Information Transfused [facility] [place] Unit Number [id number] [facility] ([place] Blood Type 5100 [facility] ([place]) Cross Match Results Compatible [facility] ([place]) Timothy aBi MD FS_MODEL_IP_BLOOD BANK PRO DUCT ORDERABLES Final Result [facility] ([place] [address] [place] [address], [facility] [phone] * (ABNORMAL) Hemoglobin and hematocrit (12/02/2024 7:40 AM EDT) [facility] Hemoglobin 7.4(L) 11.2 - 15.7 GM/DL 12/02/2024 9:43 AM EDT [facility] Hematocrit 23.4(L) 34.1 - 44.9 % 12/02/2024 9:43 AM EDT [facility] Blood Venipuncture / Unknown 12/02/2024 7:40 AM EDT 12/02/2024 7:47 AM EDT us Timothy Bai MD LAB BLOOD ORDERABLES Final Result [facility] [address] [place] [address] * (ABNORMAL) Hemoglobin (12/02/2024 7:40 AM EDT) [facility] Hemoglobin 7.3(L) 11.2 - 15.7 GM/DL 12/02/2024 7:52 AM EDT [facility] Blood Venipuncture / Unknown 12/02/2024 7:40 AM EDT 12/02/2024 7:47 AM EDT Timothy Bai MD LAB BLOOD ORDERABLES Final Result [facility] [address] [phone] * (ABNORMAL) Glucose, Nova Meter (12/02/2024 5:04 AM EDT) [facility] POC-GLUCOSE 115(H) 70 - 110 mg/dL 12/02/2024 5:06 AM EDT [facility] Comment: In the event of poor peripheral blood flow, venous or arterial blood should be used due to the potential of erroneous results. Notified Nurse RBV [employer] Room Attendant [phone] 12/02/2024 5:06 AM EDT [facility] Blood WHOLE BLOOD / Unknown 12/02/2024 5:04 AM EDT 12/02/2024 5:06 AM EDT [facility] - 12/02/2024 5:06 AM EDT Men'S Locker Room Attendant ID is - [id number] Timothy Bai MD POINT OF CARE TEST ORDERAB LES Final Result Performing Organization Address City/[facility]/ZIP Co de Phone Number [facility] [address] [phone] * (ABNORMAL) Ammonia (12/02/2024 3:38 AM EDT) [facility] Ammonia 74(H) 18 - 72 mol/L 12/02/2024 5:20 AM EDT [facility] Blood Venipuncture / Unknown 12/02/2024 3:38 AM EDT 12/02/2024 4:47 AM EDT [facility] - 12/02/2024 5:20 AM EDT Specimen slightly hemolyzed Timothy Bai MD LAB BLOOD ORDERABLES Final Result [facility] [address] [phone] * (ABNORMAL) Comprehensive Metabolic Panel (12/02/2024 3:38 AM EDT) [facility] Sodium 146(H) 136 - 145 meq/L 12/02/2024 5:30 AM EDT [facility] Potassium 4.2 3.4 - 5.1 meq/L 12/02/2024 5:30 AM EDT [facility] Chloride 118(H) 98 - 112 meq/L 12/02/2024 5:30 AM [facility] CO2 19(L) 22 - 29 meq/L 12/02/2024 5:30 AM [facility] Calcium 7.9(L) 8.4 - 10.2 mg/dL 12/02/2024 5:30 AM [facility] Glucose 107 82 - 115 mg/dL 12/02/2024 5:30 AM [facility] BUN 55.1(H) 9.8 - 20.1 mg/dL 12/02/2024 5:30 AM [facility] Creatinine 3.55(H) 0.57 - 1.11 mg/dL 12/02/2024 5:30 AM [facility] BUN/Creatinine 16 8 - 20 12/02/2024 5:30 AM [facility] eGFR (mL/min/1.73m2) 14(L) >=60 mL/min/1. 73m2 12/02/2024 5:30 AM [facility] Albumin 3.6 3.5 - 5.0 g/dL 12/02/2024 5:30 AM [facility] Alkaline Phosphatase 49 40 - 150 U/L 12/02/2024 5:30 AM [facility] ALT 8 <=34 U/L 12/02/2024 5:30 AM [facility] Comment: ALT2 reagent used for testing does not contain P5P supplementation and therefore may miss ALT elevations in patients with B6 deficiency. This population may be as high as 10% in the [place], with risk factors including malabsorption, drug interactions, and alcoholic hepatitis. AST 32 11 - 34 U/L 12/02/2024 5:30 AM [facility] Comment: AST2 reagent used for testing does not contain P5P supplementation and therefore may miss AST elevations in patients with B6 deficiency. This population may be as high as 10% in the [place], with risk factors including malabsorption, drug interactions, and alcoholic hepatitis. Total Bilirubin 0.9 0.2 - 1.2 mg/dL 12/02/2024 5:30 AM [facility] Protein, Total 6.1(L) 6.4 - 8.3 g/dL 12/02/2024 5:30 AM EDT [facility] Globulin 2.5 2.5 - 4.1 g/dL 12/02/2024 5:30 AM EDT [facility] Anion Gap 13(H) 4 - 12 12/02/2024 5:30 AM EDT [facility] A/G Ratio 1.4 0.7 - 1.9 12/02/2024 5:30 AM EDT [facility] Osmolality Calc 306.2 mOsm/kg 5:30 AM EDT [facility] Blood Venipuncture / Unknown 12/02/2024 3:38 AM EDT 12/02/2024 4:48 AM EDT Narrative [facility] - 12/02/2024 5:30 AM EDT Specimen slightly hemolyzed Timothy Bai MD LAB BLOOD ORDERABLES Final Result Performing Organization Address City/[facility]/ZIP Co de Phone Number [facility] [address] [phone] * Magnesium (12/02/2024 3:38 AM EDT) Magnesium 2.5 1.6 - 2.6 mg/dL 12/02/2024 5:30 AM EDT [facility] Blood Venipuncture / Unknown 12/02/2024 3:38 AM EDT 12/02/2024 4:48 AM EDT Narrative [facility] - 12/02/2024 5:30 AM EDT Specimen slightly hemolyzed Timothy Bai MD LAB BLOOD ORDERABLES Final Result [facility] [address] [phone] * (ABNORMAL) CBC - Hemogram (SJ-BKR) (12/02/2024 3:38 AM EDT) WBC 3.0(L) 4.0 - 10.0 K/ L 12/02/2024 5:08 AM EDT [facility] RBC 2.43(L) 3.93 - 5.22 M/ L 12/02/2024 5:08 AM EDT [facility] Hemoglobin 7.6(L) 11.2 - 15.7 GM/DL 12/02/2024 5:08 AM EDT [facility] Hematocrit 24.2(L) 34.1 - 44.9 % 12/02/2024 5:08 AM EDT [facility] MCV 100(H) 79 - 95 fL 12/02/2024 5:08 AM EDT [facility] MCH 31.3 25.6 - 32.2 pg 12/02/2024 5:08 AM EDT [facility] MCHC 31.4(L) 32.2 - 35.5 GM/DL 12/02/2024 5:08 AM EDT [facility] RDW 17.1(H) 11.7 - 14.4 % 12/02/2024 5:08 AM EDT [facility] Platelets 57(L) 140 - 375 K/CU MM 12/02/2024 5:08 AM EDT [facility] MPV 10.5 9.4 - 12.3 fL 12/02/2024 5:08 AM EDT [facility] Blood Venipuncture / Unknown 12/02/2024 3:38 AM EDT 12/02/2024 4:47 AM EDT us Timothy Bai MD LAB BLOOD ORDERABLES Final Result [facility] [address] [phone] * (ABNORMAL) Hemoglobin (12/02/2024 12:04 AM EDT) Hemoglobin 7.7(L) 11.2 - 15.7 GM/DL 12/02/2024 12:18 AM EDT [facility] Blood Venipuncture / Unknown 12/02/2024 12:04 AM EDT 12/02/2024 12:16 AM EDT Timothy Bai MD LAB BLOOD ORDERABLES Final Result Performing Organization Address [facility] Co de Phone Number [facility] [address] [phone] * (ABNORMAL) Glucose, Nova Meter (12/01/2024 7:34 PM EDT) POC-GLUCOSE 128(H) 70 - 110 mg/dL 12/01/2024 7:35 PM EDT [facility] Comment: In the event of poor peripheral blood flow, venous or arterial blood should be used due to the potential of erroneous results. Notified Nurse RBV [employer] Room Attendant [phone] 12/01/2024 7:35 PM EDT [facility] Blood WHOLE BLOOD / Unknown 12/01/2024 7:34 PM EDT 12/01/2024 7:35 PM EDT Narrative [facility] - 12/01/2024 7:35 PM EDT Men[employer]S Locker Room Attendant ID is - [id number] Timothy Bai MD POINT OF CARE TEST ORDERAB LES Final Result Performing Organization Address [facility] de Phone Number [facility] [address] [phone] * (ABNORMAL) Glucose, Nova Meter (12/01/2024 4:25 PM EDT) POC-GLUCOSE 115(H) 70 - 110 mg/dL 12/01/2024 4:26 PM EDT [facility] Comment: In the event of poor peripheral blood flow, venous or arterial blood should be used due to the potential of erroneous results. Notified Nurse RBV [employer] Room Attendant [phone] 12/01/2024 4:26 PM EDT [facility] Blood WHOLE BLOOD / Unknown 12/01/2024 4:25 PM EDT 12/01/2024 4:26 PM EDT Narrative [facility] - 12/01/2024 4:26 PM EDT Men'S Locker Room Attendant ID is - [id number] us Timothy Bai MD POINT OF CARE TEST ORDERAB LES Final Result Performing Organization Address [facility]/ZIP Co de Phone Number [facility] [address] [phone] * (ABNORMAL) Hemoglobin (12/01/2024 3:33 PM EDT) Pathologist [facility] [place] Hemoglobin 8.0(L) 11.2 - 15.7 GM/DL 12/01/2024 4:03 PM EDT [facility] Blood Venipuncture / Unknown 12/01/2024 3:33 PM EDT 12/01/2024 4:00 PM EDT Timothy Bai MD LAB BLOOD ORDERABLES Final Result Performing Organization Address [facility] Number [facility] [address] [phone] * Glucose, Nova Meter (12/01/2024 10:32 AM EDT) [facility] POC-GLUCOSE 100 70 - 110 mg/dL 12/01/2024 10:33 AM EDT [facility] Comment: In the event of poor peripheral blood flow, venous or arterial blood should be used due to the potential of erroneous results. Notified Nurse RBV [employer] Room Attendant [phone] 12/01/2024 10:33 AM EDT [facility] Blood WHOLE BLOOD / Unknown 12/01/2024 10:32 AM EDT 12/01/2024 10:33 AM EDT Narrative [facility] - 12/01/2024 10:33 AM EDT Men[employer]S Locker Room Attendant ID is - [id number] us Timothy Bai MD POINT OF CARE TEST ORDERAB LES Final Result Performing Organization Address [facility] Co de Phone Number [facility] [address] [phone] * Transfuse RBC (12/01/2024 9:18 AM EDT) us Denilson Hodgson DO FS_MODEL_IP_BLOOD TRANSFUSION ORDERABLES Final Result * Transfuse RBC: 1 Units (12/01/2024 9:18 AM EDT) us Denilson Hodgson DO FS_MODEL_IP_BLOOD TRANSFUSION ORDERABLES Final Result * Glucose, Nova Meter (12/01/2024 8:12 AM EDT) Pathologist [facility] [place] POC-GLUCOSE 103 70 - 110 mg/dL 12/01/2024 8:14 AM EDT [facility] Comment: In the event of poor peripheral blood flow, venous or arterial blood should be used due to the potential of erroneous results. Protocols Followed [employer] Room Attendant [phone] 12/01/2024 8:14 AM EDT [facility] Blood WHOLE BLOOD / Unknown 12/01/2024 8:12 AM EDT 12/01/2024 8:14 AM EDT Narrative [facility] - 12/01/2024 8:14 AM EDT [employer] Room Attendant ID is - [id number] us Timothy Bai MD POINT OF CARE TEST ORDERAB LES Final Result [facility] [address] [phone] * Type and Screen (12/01/2024 7:08 AM EDT) ABO/Rh O Positive 12/01/2024 4:53 AM EDT [facility] ([place]) Antibody Screen Negative 12/01/2024 4:53 AM EDT [facility] [place] HISTCHK HIST CHECK PERFORMED 12/01/2024 4:53 AM EDT [facility] [place] Blood Venipuncture / Unknown 12/01/2024 7:08 AM EDT 12/01/2024 7:15 AM EDT us Denilson Hodgson DO [facility] BLOOD [facility] TEST ORDERABLES Final Result [facility] ([place]) [address] [place] [address], [facility] [phone] * Glucose, Nova Meter (12/01/2024 5:37 AM EDT) Pathologist [facility] [place] POC-GLUCOSE 107 70 - 110 mg/dL 12/01/2024 5:39 AM EDT [facility] Comment: In the event of poor peripheral blood flow, venous or arterial blood should be used due to the potential of erroneous results. Notified Nurse RBV [employer] Room Attendant [id number] 12/01/2024 5:39 AM EDT [facility] Blood WHOLE BLOOD / Unknown 12/01/2024 5:37 AM EDT 12/01/2024 5:39 AM EDT Narrative [facility] - 12/01/2024 5:39 AM EDT [employer] Room Attendant ID is - [id number] us Timothy Bai MD POINT OF CARE TEST ORDERAB LES Final Result [facility] [address] [phone] * Prepare RBC: 1 Units (12/01/2024 4:53 AM EDT) [facility] Issue Date/Time [id number] [facility] BLOOD [facility] ([place]) Product Identification Red Blood Cells [facility] [place]) Product Code [id number] [facility] [place] Status Information Transfused [facility] [place] Unit Number [id number] [facility] [place]) Blood Type 5100 [facility] [place] Cross Match Results Compatible [facility] [place] us Denilson Hodgson DO FS_MODEL_IP_BLOOD BANK PRODUCT ORDERABLES Final Result [facility] ([place] [address] [phone] * ABO/RH Confirmation/Retype (12/01/2024 4:06 AM EDT) RETYPE O Positive 12/01/2024 5:15 AM EDT [facility] [place] Comment:[id number] Blood Venipuncture / Unknown 12/01/2024 4:06 AM EDT 12/01/2024 5:14 AM EDT Timothy Bai MD [facility] BLOOD [facility] TEST ORDERA BLES Final Result Performing Organization Address [facility]/ZIP Co de Phone Number [facility] ([place] [address] [phone] * (ABNORMAL) Ammonia (12/01/2024 4:06 AM EDT) Ammonia 75(H) 18 - 72 mol/L 12/01/2024 4:49 AM EDT [facility] Blood Venipuncture / Unknown 12/01/2024 4:06 AM EDT 12/01/2024 4:13 AM EDT Timothy Bai MD LAB BLOOD ORDERABLES Final Result [facility] [address] [phone] * (ABNORMAL) CBC - Hemogram (SJ-BKR) (12/01/2024 4:06 AM EDT) WBC 1.7(LL) 4.0 - 10.0 K/ L 12/01/2024 4:43 AM EDT [facility] RBC 2.15(L) 3.93 - 5.22 M/ L 12/01/2024 4:43 AM EDT [facility] Hemoglobin 6.7(L) 11.2 - 15.7 GM/DL 12/01/2024 4:43 AM EDT [facility] Hematocrit 21.6(L) 34.1 - 44.9 % 12/01/2024 4:43 AM EDT [facility] MCV 101(H) 79 - 95 fL 12/01/2024 4:43 AM EDT [facility] MCH 31.2 25.6 - 32.2 pg 12/01/2024 4:43 AM EDT [facility] MCHC 31.0(L) 32.2 - 35.5 GM/DL 12/01/2024 4:43 AM EDT [facility] RDW 16.2(H) 11.7 - 14.4 % 12/01/2024 4:43 AM EDT [facility] Platelets 54(L) 140 - 375 K/CU MM 12/01/2024 4:43 AM EDT [facility] MPV 10.6 9.4 - 12.3 fL 12/01/2024 4:43 AM EDT [facility] Blood Venipuncture / Unknown 12/01/2024 4:06 AM EDT 12/01/2024 4:12 AM EDT us Timothy Bai MD LAB BLOOD ORDERABLES Final Result Performing Organization Address City/State/[facility] Co de Phone Number [facility] [address] [place] [address] * (ABNORMAL) Comprehensive Metabolic Panel (12/01/2024 4:05 AM EDT) Sodium 145 136 - 145 meq/L 12/01/2024 5:01 AM EDT [facility] Potassium 4.2 3.4 - 5.1 meq/L 12/01/2024 5:01 AM EDT [facility] Chloride 116(H) 98 - 112 meq/L 12/01/2024 5:01 AM EDT [facility] CO2 20(L) 22 - 29 meq/L 12/01/2024 5:01 AM EDT [facility] Calcium 8.0(L) 8.4 - 10.2 mg/dL 12/01/2024 5:01 AM EDT [facility] Glucose 120(H) 82 - 115 mg/dL 12/01/2024 5:01 AM [facility] BUN 68.3(H) 9.8 - 20.1 mg/dL 12/01/2024 5:01 AM [facility] Creatinine 4.13(H) 0.57 - 1.11 mg/dL 12/01/2024 5:01 AM [facility] BUN/Creatinine 17 8 - 20 12/01/2024 5:01 AM [facility] eGFR (mL/min/1.73m2) 12(L) >=60 mL/min/1. 73m2 12/01/2024 5:01 AM [facility] Albumin 2.8(L) 3.5 - 5.0 g/dL 12/01/2024 5:01 AM [facility] Alkaline Phosphatase 61 40 - 150 U/L 12/01/2024 5:01 AM [facility] ALT 15 <=34 U/L 12/01/2024 5:01 AM [facility] Comment: ALT2 reagent used for testing does not contain P5P supplementation and therefore may miss ALT elevations in patients with B6 deficiency. This population may be as high as 10% in the [place], with risk factors including malabsorption, drug interactions, and alcoholic hepatitis. AST 26 11 - 34 U/L 12/01/2024 5:01 AM [facility] Comment: AST2 reagent used for testing does not contain P5P supplementation and therefore may miss AST elevations in patients with B6 deficiency. This population may be as high as 10% in the [place], with risk factors including malabsorption, drug interactions, and alcoholic hepatitis. Total Bilirubin 0.5 0.2 - 1.2 mg/dL 12/01/2024 5:01 AM [facility] Protein, Total 5.7(L) 6.4 - 8.3 g/dL 12/01/2024 5:01 AM [facility] Globulin 2.9 2.5 - 4.1 g/dL 12/01/2024 5:01 AM [facility] Anion Gap 13(H) 4 - 12 12/01/2024 5:01 AM [facility] A/G Ratio 1.0 0.7 - 1.9 12/01/2024 5:01 AM EDT [facility] Osmolality Calc 309.8 mOsm/kg 5:01 AM EDT [facility] Blood Venipuncture / Unknown 12/01/2024 4:05 AM EDT 12/01/2024 4:13 AM EDT Timothy Bai MD LAB BLOOD ORDERABLES Final Result Performing Organization Address City/[facility]/ZIP Co de Phone Number [facility] [address] [phone] * (ABNORMAL) Magnesium (12/01/2024 4:05 AM EDT) Magnesium 2.7(H) 1.6 - 2.6 mg/dL 12/01/2024 4:57 AM EDT [facility] Blood Venipuncture / Unknown 12/01/2024 4:05 AM EDT 12/01/2024 4:13 AM EDT Timothy Bai MD LAB BLOOD ORDERABLES Final Result Performing Organization Address [facility] Co de Phone Number [facility] [address] [phone] * Glucose, Nova Meter (11/30/2024 7:38 PM EDT) POC-GLUCOSE 106 70 - 110 mg/dL 11/30/2024 7:39 PM EDT [facility] Comment: In the event of poor peripheral blood flow, venous or arterial blood should be used due to the potential of erroneous results. Notified Nurse [facility] [employer] [phone] 11/30/2024 7:39 PM EDT [facility] Blood WHOLE BLOOD / Unknown 11/30/2024 7:38 PM EDT 11/30/2024 7:39 PM EDT Narrative [facility] - 11/30/2024 7:39 PM EDT Men'S Locker Room Attendant ID is - [id number] Timothy Bai MD POINT OF CARE TEST ORDERAB LES Final Result Performing Organization Address [facility] Co de Phone Number [facility] [address] [phone] * Glucose, Nova Meter (11/30/2024 6:22 PM EDT) [facility] POC-GLUCOSE 107 70 - 110 mg/dL 11/30/2024 6:25 PM EDT [facility] Comment:In the event of poor peripheral blood flow, venous or arterial blood should be used due to the potential of erroneous results. Men[employer]S Locker Room Attendant [phone] 11/30/2024 6:25 PM EDT [facility] Blood WHOLE BLOOD / Unknown 11/30/2024 6:22 PM EDT 11/30/2024 6:25 PM EDT Narrative [facility] - 11/30/2024 6:25 PM EDT [employer]S Locker Room Attendant ID is - [id number] Timothy Bai MD POINT OF CARE TEST ORDERAB LES Final Result Performing Organization Address [facility] Co de Phone Number [facility] [address] [phone] * Ultrasound renal limited (11/30/2024 4:19 PM [...] ascites. Procedure Note Haseeb Gil MD - 05/06/2025 CLINICAL INDICATION: Abdominal pain. Assess HCC TECHNIQUE: [...] dictated by SABINE Yang. us Destiney Llanes PARENT TRAINER IMG US ORDERABLES Final Res ult * [...] Ascites ATTENDING PHYSICIAN: Dr. Haseeb Gil PHYSICIAN CONCRETE WALL GRINDER OPERATOR: Gabriel Velasco PA-C FINDINGS: After informed consent [...] Ascites ATTENDING PHYSICIAN: Dr. Haseeb Gil PHYSICIAN CONCRETE WALL GRINDER OPERATOR: Gabriel Velasco PA-C FINDINGS: After informed consent [...] Gabriel Velasco PA-C. us Huey Hurtado MD [facility] US ORDERABLES Final Result * Protein, body fluid (11/30/2024 4:03 PM EDT) Protein, Fluid 1.9 See Comment g/dL 12/01/2024 7:10 AM EDT [facility] BODY FLUID TYPE Peritoneal 12/01/2024 7:10 AM EDT [facility] Body Fluid PERITONEAL FLUID / Unknown 11/30/2024 4:03 PM EDT 12/01/2024 6:52 AM EDT Narrative [facility] - 12/01/2024 7:10 AM EDT This test has been modified from the engineering surveyor's instructions and its performance characteristics were determined by the laboratory. The reference intervals and other method performance specifications are unavailable for this test. It is recommended to interpret body fluid concentrations in comparison with the corresponding serum or plasma concentrations and to integrate test results into the clinical context. us Timothy Bai MD BODY FLUIDS AND STOOLS ORD ERABLES Final Result [facility] [address] [phone] * Glucose, body fluid (11/30/2024 4:03 PM EDT) Glucose, Body Fluid 107 See Comment mg/dL 12/01/2024 7:10 AM EDT [facility] BODY FLUID TYPE Peritoneal 12/01/2024 7:10 AM EDT [facility] Body Fluid PERITONEAL FLUID / Unknown 11/30/2024 4:03 PM EDT 12/01/2024 6:52 AM EDT Narrative [facility] - 12/01/2024 7:10 AM EDT This test has been modified from the engineering surveyor's instructions and its performance characteristics were determined [...] ORD ERABLES Final Result Performing Organization Address City/[facility]/ZIP Co de Phone Number [facility] [address] [phone] * Body Fluid/CSF - Path Review (SJ) (11/30/2024 4:03 PM EDT) SENT TO PATHOLOGY FOR REVIEW Yes 12/03/2024 6:54 AM EDT [facility] Scan Result Mesothelial cells. MD German 12/02/2024 12/03/2024 6:54 AM EDT [facility] Peritoneal Fluid BODY FLUID / Unknown 11/30/2024 4:03 PM EDT 11/30/2024 4:33 PM EDT us Huey Hurtado MD BODY FLUIDS AND STOOLS ORDERABLE S Final Result [facility] [address] [phone] * DIFFERENTIAL, BODY FLUID (11/30/2024 4:03 PM EDT) Neutrophils Fluid 5 0 - 25 % 025 8:49 PM EDT [facility] Lymphocytes Fluid 46 % 025 8:49 PM EDT [facility] Unidentified Mononuclear Cells BF 49 0 - 0 % 11/30/2024 8:49 PM EDT [facility] Peritoneal Fluid BODY FLUID / Unknown 11/30/2024 4:03 PM EDT 11/30/2024 4:33 PM EDT us Huey Hurtado MD BODY FLUIDS AND STOOLS ORDERABLE S Final Result [facility] 1 [place] [address], [facility] [phone] * [facility] Non-Press Operator Assistant Cytology (11/30/2024 4:03 PM EDT) AP RESULT See Note: [facility] Comment: [facility] [address] [place] [address] or [phone] Joe Carlos M.D., Wire Fence Builder PATIENT NAME LABORATORY NO. 170MARY PETERSEN. [id number] AGE SEX SSN CLIENT REF # [facility] 64 1960 F [id number] 1 [facility] REQUESTING Aleksandr ATTENDING [place] [address] HUEY HURTADO DATE COLLECTED DATE RECEIVED DATE REPORTED 11/30/2024 12/01/2024 12/02/2024 DIAGNOSIS: PERITONEAL FLUID: Negative for malignant cells. MICROSCOPIC DESCRIPTION: Scattered mesothelial cells and chronic inflammatory cells are present. Professional interpretation rendered by John Sanchez M.D., F.C.A.P. at [facility], [address] [place] [address]. CLINICAL HISTORY: Melena Anasarca Acute renal failure SPECIMENS SUBMITTED: PERITONEAL FLUID GROSS SPECIMEN DESCRIPTION: 40 ccs of hazy, light yellow fluid, scant sediment, received in fixative ThinPrep slides prepared. Cell block has been examined. GREEN CHAIN OFF BEARER: SVITLANA HERNANDEZ (ASCP) REVIEWED, DIAGNOSED AND ELECTRONICALLY SIGNED BY: John Sanchez M.D., F.C.A.P. CPT CODES: [id number], [id number] Peritoneal Fluid BODY FLUID / Unknown 11/30/2024 4:03 PM EDT us Huey Hurtado MD PATHOLOGY/CYTOLOGY ORDERABLES Fi nal Result [facility] [address] * AFB Culture And Stain (11/30/2024 4:03 PM EDT) Result No Acid Fast Bacilli isolated at 6 weeks 01/11/2025 5:00 PM EDT [facility] AFB Smear No acid fast bacilli seen 01/11/2025 5:00 PM EDT [facility] Peritoneal Fluid BODY FLUID / Unknown 11/30/2024 4:03 PM EDT 11/30/2024 4:34 PM EDT Narrative [facility] - 01/11/2025 5:00 PM EDT Specimen Description: peritoneal fluid us Huey Hurtado MD MICROBIOLOGY - GENERAL ORDERABLE S Final Result [facility] [address] [phone] * Fungus Culture W/ROSA MARIA Or Nimisha Ink (11/30/2024 4:03 PM EDT) Result No fungus isolated at 6 weeks. 01/11/2025 5:00 PM EDT [facility] ROSA MARIA Prep No fungal elements seen 01/11/2025 5:00 PM EDT [facility] Peritoneal Fluid BODY FLUID / Unknown 11/30/2024 4:03 PM EDT 11/30/2024 4:34 PM EDT [facility] - 01/11/2025 5:00 PM EDT Specimen Description: peritoneal fluid us Huey Hurtado MD MICROBIOLOGY - GENERAL ORDERABLE S Final Result Performing Organization Address City/[facility]/ZIP Co de Phone Number [facility] 1 [place] [address], [facility] [phone] * Anaerobic Culture (11/30/2024 4:03 PM EDT) Result No Anaerobic growth 12/05/2024 6:34 AM EDT [facility] Peritoneal Fluid BODY FLUID / Unknown 11/30/2024 4:03 PM EDT 11/30/2024 4:34 PM EDT [facility] - 12/05/2024 6:34 AM EDT Specimen Description: peritoneal fluid us Huey Hurtado MD MICROBIOLOGY - GENERAL ORDERABLE S Final Result Performing Organization Address [facility]/ZIP Co de Phone Number [facility] [address] [phone] * Body Fluid Culture + Gram Stain (11/30/2024 4:03 PM EDT) Result No growth 12/03/2024 9:07 AM EDT [facility] Gram Stain Result No organisms seen 12/03/2024 9:07 AM EDT [facility] Gram Stain Result No cells seen 12/03/2024 9:07 AM EDT [facility] Peritoneal Fluid BODY FLUID / Unknown 11/30/2024 4:03 PM EDT 11/30/2024 4:34 PM EDT [facility] - 12/03/2024 9:07 AM EDT Specimen Description: peritoneal fluid us Huey Hurtado MD MICROBIOLOGY - GENERAL ORDERABLE S Final Result Performing Organization Address City/[facility]/ZIP Co de Phone Number [facility] 1 [place] [address], [facility] [phone] * (ABNORMAL) Body fluid cell count with differential (11/30/2024 4:03 PM EDT) Appearance Cloudy(A) Clear 11/30/2024 8:49 PM EDT [facility] Color Yellow 11/30/2024 8:49 PM EDT [facility] BODY FLUID TYPE Peritoneal 11/30/2024 8:49 PM EDT [facility] Auto WBC/Nucleated Cells BF 85 /uL 11/30/2024 8:49 PM EDT [facility] Comment: Please refer to specific WBC/Nucleated Cell Count Body Fluid reference ranges below: For Pleural: 0-1000 Peritoneal: 0-1000 Pericardial:0-1000 Synovial: 0-200 Auto RBC BF <3,000 /uL 11/30/2024 8:49 PM EDT [facility] Comment: Please refer to specific RBC Cell Count Body Fluid reference ranges below: Pleural: 0-10,000 Peritoneal: 0-10,000 Pericardial:0-10,000 Synovial:0-30 Peritoneal Fluid BODY FLUID / Unknown 11/30/2024 4:03 PM EDT 11/30/2024 4:33 PM EDT [facility] - 11/30/2024 8:49 PM EDT There is normally no readily obtainable pleural, peritoneal and pericardial fluid, hence normal elements for these potential fluids are not defined. us Huey Hurtado MD BODY FLUIDS AND STOOLS ORDERABLE S Final Result [facility] [address] [place] [address] * Lactate dehydrogenase (LDH), body fluid (11/30/2024 4:03 PM EDT) LDH, Fluid 71 See Comment U/L 11/30/2024 6:19 PM EDT [facility] BODY FLUID TYPE Peritoneal 11/30/2024 6:19 PM EDT [facility] Peritoneal Fluid BODY FLUID / Unknown 11/30/2024 4:03 PM EDT 11/30/2024 4:33 PM EDT Narrative [facility] - 11/30/2024 6:19 PM EDT This test has been modified from the engineering surveyor's instructions and its performance characteristics were determined [...] ORDERABLE S Final Result Performing Organization Address [facility] Phone Number [facility] [address] [phone] * Protein / creatinine ratio, urine (11/30/2024 11:35 AM EDT) Creatinine, Ur 62.00 47.00 - 110.00 mg/dL 11/30/2024 12:36 PM EDT [facility] Protein Creatinine Ratio 0.19 <=0.20 11/30/2024 12:36 PM EDT [facility] Protein, Urine 12 1 - 14 mg/dL 11/30/2024 12:36 PM EDT [facility] Urine 11/30/2024 11:3 5 AM EDT 11/30/2024 12:15 PM EDT Result Archana Boo MD URINE ORDERABLES Final Result Performing Organization Address [facility] Number [facility] [address] [phone] * Urea Nitrogen, random urine (11/30/2024 11:35 AM EDT) Urea Nitrogen, Ur 305 mg/dL 11/30/2024 12:36 PM EDT [facility] Comment:Reference Range not established Urine 11/30/2024 11:3 5 AM EDT 11/30/2024 12:15 PM EDT us Hill Boo MD URINE ORDERABLES Final Result Performing Organization Address [facility] Phone Number [facility] [address] [phone] * Sodium, random urine (11/30/2024 11:35 AM EDT) Sodium Urine 83 See Comment meq/L 11/30/2024 12:36 PM EDT [facility] Comment:Reference Range not established Urine 11/30/2024 11:3 5 AM EDT 11/30/2024 12:15 PM EDT us Hill Boo MD URINE ORDERABLES Final Result [facility] [address] [phone] * (ABNORMAL) Urinalysis Microscopic Only (11/30/2024 11:35 AM EDT) WBC, UA 21-50(A) None Seen /HPF 11/30/2024 12:06 PM EDT [facility] RBC, UA 0-2(A) None Seen /HPF 11/30/2024 12:06 PM EDT [facility] Bacteria, UA 1+(A) None Seen, Trace 11/30/2024 12:06 PM EDT [facility] Mucus 1+(A) None Seen 11/30/2024 12:06 PM EDT [facility] SQUAMOUS EPITHELIAL 3-5(A) None Seen /HPF 11/30/2024 12:06 PM EDT [facility] HYALINE CASTS 21-50(A) None Seen /LPF 11/30/2024 12:06 PM EDT [facility] Urine URINE SPECIMEN COLLECTION, CLEAN CATCH / Unknown 11/30/2024 11:35 AM EDT 11/30/2024 11:41 AM EDT us Destiney Llanes APRN URINE ORDERABLES Final Resu lt [facility] [address] [phone] * Urine Culture (11/30/2024 11:35 AM EDT) Result Recollect Specimen - 3 or more organisms suggests contamination 12/01/2024 6:49 AM EDT [facility] Urine URINE SPECIMEN COLLECTION, CLEAN CATCH / Unknown 11/30/2024 11:35 AM EDT 11/30/2024 11:41 AM EDT Destiney Llanes APRN MICROBIOLOGY - GENERAL ISAAC HAMLIN Final Result [facility] [address] [phone] * (ABNORMAL) Urinalysis, Reflex Microscopic and Culture If Indicated (11/30/2024 11:35 AM EDT) Color, UA Light Yellow 11/30/2024 12:06 PM EDT [facility] Clarity, UA Turbid(A) Clear 11/30/2024 12:06 PM EDT [facility] Specific Cumby, UA 1.011 1.005 - 1.030 11/30/2024 12:06 PM EDT [facility] pH, UA 5.0(L) 6.0 - 8.0 11/30/2024 12:06 PM EDT [facility] Leukocytes, UA 500 Félix/uL(A) Negative 11/30/2024 12:06 PM EDT [facility] Nitrite, UA Negative Negative 11/30/2024 12:06 PM EDT [facility] Protein, UA Negative Negative 11/30/2024 12:06 PM EDT [facility] Glucose, UA Normal Normal 11/30/2024 12:06 PM EDT [facility] Ketones, UA Negative Negative 11/30/2024 12:06 PM EDT [facility] Bilirubin, UA Negative Negative 11/30/2024 12:06 PM EDT [facility] Blood, UA Negative Negative 11/30/2024 12:06 PM EDT [facility] Urobilinogen, UA Normal Normal 11/30/2024 12:06 PM EDT [facility] Specimen Source Urine, Clean Catch 11/30/2024 12:06 PM EDT [facility] Urine URINE SPECIMEN COLLECTION, CLEAN CATCH / Unknown 11/30/2024 11:35 AM EDT 11/30/2024 11:41 AM EDT Destiney Llanes APRN URINE ORDERABLES Final Resu lt [facility] [address] [phone] * XR chest AP portable (11/30/2024 11:29 [...] C Calhoun. Transcribed by Marielos Sotelo PA-C. us Destiney Llanes APRN IMG DIAGNOSTIC IMAGING ORDTammie [facility] Final Result * (ABNORMAL) Monoclonal Protein Study, Expanded Panel(SENDOUT) (11/30/2024 11:01 AM EDT) Pathologist [facility] Total Protein, Serum 6.2(L) 6.3 - 8.2 g/dL 12/03/2024 12:57 PM EDT [facility] Albumin 2.71(L) 3.75 - 5.01 g/dL 12/03/2024 12:57 PM EDT [facility] Alpha 1 Globulin 0.34 0.19 - 0.46 g/dL 12/03/2024 12:57 PM EDT [facility] Alpha 2 Globulin 0.38(L) 0.48 - 1.05 g/dL 12/03/2024 12:57 PM EDT [facility] Beta Globulin 1.30(H) 0.48 - 1.10 g/dL 12/03/2024 12:57 PM EDT [facility] Gamma 1.47 0.62 - 1.51 g/dL 12/03/2024 12:57 PM T [facility] Immunofixation MAEGAN Done 12/03/2024 12:57 PM T [facility] Immunoglobulin G 1484 768 - 1632 mg/dL 12/03/2024 12:57 PM T [facility] Immunoglobulin A 686(H) 68 - 408 mg/dL 12/03/2024 12:57 PM T [facility] Immunoglobulin M 126 35 - 263 mg/dL 12/03/2024 12:57 PM T [facility] Monoclonal Protein Not Applicable <=0.00 g/dL 12/03/2024 12:57 PM EDT [facility] [place] Qnt Free Light Chains 173.10(H) 3.30 - 19.40 mg/L 12/03/2024 12:57 PM T [facility] Comment: INTERPRETIVE INFORMATION: [place] Qnt Free Light Chains Undetected antigen excess is a rare event but cannot be excluded. Free light chain results should always be interpreted in conjunction with other clinical and laboratory findings. Lambda Qnt Free Light Chains 123.84(H) 5.71 - 26.30 mg/L 12/03/2024 12:57 PM T [facility] Comment: INTERPRETIVE INFORMATION: Lambda Qnt Free Light Chains Undetected antigen excess is a rare event but cannot be excluded. Free light chain results should always be interpreted in conjunction with other clinical and laboratory findings. [place]/Lambda Free Light Chain Ratio 1.40 0.26 - 1.65 12/03/2024 12:57 PM EDT [facility] SPEP/MAEGAN Interpretation See Note 12/03/2024 12:57 PM EDT [facility] Comment: Restricted band in the beta region [...] Serum See Note 12/03/2024 12:57 PM EDT [facility] Comment: Authorized individuals can access the [employer] Enhanced Report with an [employer] Connect account using the following link. Your local lab can assist you in obtaining the patient report if you don't have a Connect account. [email or web address] Performed By: [email or web address] [address] [id number] Yard Switch Operator: Lalo Mortensen MD, PhD CLIA Number: [id number] Blood Venipuncture / Unknown 11/30/2024 11:01 AM EDT 11/30/2024 12:17 PM EDT Hill Boo MD LAB BLOOD ORDERABLES Final Resu lt [facility] [address] [id number], [facility] [phone] * Alpha Fetoprotein Tumor Marker(SENDOUT) (11/30/2024 11:01 AM EDT) Alpha Fetoprotein Tumor Marker 2 0 - 9 ng/mL 12/01/2024 3:41 PM EDT [facility] Comment: INTERPRETIVE INFORMATION: Alpha Fetoprotein Tumor Marker The [employer] [place] Access DxI AFP method is used. Results [...] reference intervals for this test in the [employer] Laboratory Test Directory ([employer]). Performed By: [email or web address] [address] [place] [address] Yard Switch Operator: Lalo Mortensen MD, PhD CLIA Number: [id number] Blood Venipuncture / Unknown 11/30/2024 11:01 AM EDT 11/30/2024 11:06 AM EDT us Destiney Llanes APRN LAB BLOOD ORDERABLES Final Result Performing Organization Address City/[facility]/ZIP Co de Phone Number [facility] [address] [place], [place] [id number], [facility] [phone] * Glucose, Nova Meter (11/30/2024 10:46 AM EDT) [facility] POC-GLUCOSE 102 70 - 110 mg/dL 11/30/2024 10:47 AM EDT [facility] Comment: In the event of poor peripheral blood flow, venous or arterial blood should be used due to the potential of erroneous results. Notified Nurse RBV [employer] Room Attendant [phone] 11/30/2024 10:47 AM EDT [facility] Blood WHOLE BLOOD / Unknown 11/30/2024 10:46 AM EDT 11/30/2024 10:47 AM EDT Narrative [facility] - 11/30/2024 10:47 AM EDT [employer] Room Attendant ID is - [id number] us Timothy Bai MD POINT OF CARE TEST ORDERAB LES Final Result Performing Organization Address [facility]/ZIP Co de Phone Number [facility] [address] [phone] * (ABNORMAL) Vitamin D, 25-Hydroxy (11/30/2024 8:20 AM EDT) Vitamin D 25-Hydroxy 22.0(L) 30 - 80 ng/mL 11/30/2024 9:48 AM EDT [facility] Blood Venipuncture / Unknown 11/30/2024 8:20 AM EDT 11/30/2024 9:08 AM EDT us Timothy Bai MD LAB BLOOD ORDERABLES Final Result [facility] [address] [phone] * Hemoglobin A1c (11/30/2024 8:20 AM EDT) Hemoglobin A1C 4.9 4.0 - 5.6 % 11/30/2024 9:17 AM EDT [facility] Comment: Hemoglobin A1C levels are related to mean glucose during the preceding 2-3 months. Less than 7% demonstrates glycemic control in diabetic patients. Hemoglobin AlC % Suggested Diagnosis > or = 6.5 Diabetic 5.7 - 6.4 Prediabetic <5.7 Non-diabetic eAVG Glucose 93.93 70 - 126 mg/dL 11/30/2024 9:17 AM EDT [facility] Blood Venipuncture / Unknown 11/30/2024 8:20 AM EDT 11/30/2024 9:07 AM EDT us Huey Hurtado MD LAB BLOOD ORDERABLES Final Resul t [facility] [address] [phone] * ECHO COMPLETE (DOPPLER / COLOR) WO CONTRAST (11/30/2024 7:50 AM EDT) Anatomical Region Laterality Modality Heart Vascular Ultraso und 11/30/2024 7:25 AM EDT Narrative 11/30/2024 10:46 AM EDT TRANSTHORACIC ECHOCARDIOGRAPHY REPORT Demographics Patient Name: RIN JONES : 1960 Age: 64 year(s) Corporate ID Number: [id number] Gender Female Manager Code: Giovanna Rock Height: 67 inches [facility] Referring Physician: HUEY HURTADO Weight: 225 pounds [...] 1.35 m/s E/A ratio: 0.97 m/s Volume [id number] LV length: 8.51 cm ml Volume xmvdfgup43.96 ml LVOT diameter: 1.79 cm Normal sized [...] Valve TR velocity: 2.51 m/s TR gradient: 25.71545 mmHg Estimated RAP: 3 mmHg RVSP: 28.12 [...] 1960 Age: 64 year(s) Corporate ID Number: [id number] Gender Female Manager Code: Giovanna Rock Height: 67 inches [facility] Referring Physician: HUEY HURTADO Weight: 225 pounds [...] 1.35 m/s E/A ratio: 0.97 m/s Volume [id number] LV length: 8.51 cm ml Volume iasgsmou27.96 ml LVOT diameter: 1.79 cm Normal sized [...] Valve TR velocity: 2.51 m/s TR gradient: 25.12481 mmHg Estimated RAP: 3 mmHg RVSP: 28.12 [...] posteriorly. Other Ascites noted in subcostal imaging. us Huey Hurtado MD CV ECHO ORDERABLES Final Result * Glucose, Nova Meter (11/30/2024 5:13 AM EDT) Pathologist [facility] POC-GLUCOSE 96 70 - 110 mg/dL 11/30/2024 5:17 AM EDT [facility] Comment: In the event of poor peripheral blood flow, venous or arterial blood should be used due to the potential of erroneous results. Protocols Followed [employer] Room Attendant [phone] 11/30/2024 5:17 AM EDT [facility] Blood WHOLE BLOOD / Unknown 11/30/2024 5:13 AM EDT 11/30/2024 5:17 AM EDT Narrative [facility] - 11/30/2024 5:17 AM EDT [employer] Room Attendant ID is - [id number] us Albert Garcia MD POINT OF CARE TEST ORDERABLES Fi nal Result Performing Organization Address [facility]/ZIP Co de Phone Number [facility] [address] [place] [address] * Blood Culture (11/30/2024 3:42 AM EDT) Pathologist [facility] Result No growth in 5 days 12/05/2024 5:01 AM EDT [facility] Blood ENTIRE RIGHT UPPER ARM / Unknown Venipuncture / Unknown 11/30/2024 3:42 AM EDT 11/30/2024 4:09 AM EDT us Huey Hurtado MD MICROBIOLOGY - GENERAL ORDERABLE S Final Result Performing Organization Address City/[facility]/ZIP Co de Phone Number [facility] [address] [phone] * Folate, Serum (11/30/2024 3:40 AM EDT) Folate 7.0 7.0 - 31.4 ng/mL 11/30/2024 6:08 PM EDT [facility] Blood Venipuncture / Unknown 11/30/2024 3:40 AM EDT 11/30/2024 4:09 AM EDT us Laura Rangel MD LAB BLOOD ORDERABLES Final Res ult [facility] [address] [phone] * (ABNORMAL) Iron and TIBC (11/30/2024 3:40 AM EDT) Iron 63 50 - 170 ug/dL 11/30/2024 6:13 PM EDT [facility] TIBC 183(L) 250 - 435 ug/dL 11/30/2024 6:13 PM EDT [facility] LABORATORY % Saturation 34 % 11/30/2024 6:13 PM EDT [facility] UIBC 120 11/30/2024 6:13 PM EDT [facility] Blood Venipuncture / Unknown 11/30/2024 3:40 AM EDT 11/30/2024 4:09 AM EDT us Laura Rangel MD LAB BLOOD ORDERABLES Final Res ult [facility] [address] [phone] * Ferritin (11/30/2024 3:40 AM EDT) Ferritin 168.51 4.63 - 204.00 ng/mL 11/30/2024 6:08 PM EDT [facility] Blood Venipuncture / Unknown 11/30/2024 3:40 AM EDT 11/30/2024 4:09 AM EDT us Laura Rangel MD LAB BLOOD ORDERABLES Final Res ult Performing Organization Address [facility]/ZIP Co de Phone Number [facility] [address] [phone] * (ABNORMAL) Lactate dehydrogenase (LDH) (11/30/2024 3:40 AM EDT) LDH 261(H) 125 - 220 U/L 11/30/2024 12:18 PM EDT [facility] Blood Venipuncture / Unknown 11/30/2024 3:40 AM EDT 11/30/2024 4:09 AM EDT us Hill Boo MD LAB BLOOD ORDERABLES Final Resu lt Performing Organization Address [facility] Co de Phone Number [facility] [address] [phone] * (ABNORMAL) Creatine Kinase (CK) (11/30/2024 3:40 AM EDT) Total CK 356(H) 29 - 168 U/L 11/30/2024 12:18 PM EDT [facility] Blood Venipuncture / Unknown 11/30/2024 3:40 AM EDT 11/30/2024 4:09 AM EDT us Hill Boo MD LAB BLOOD ORDERABLES Final Resu lt Performing Organization Address [facility]/ZIP Co de Phone Number [facility] [address] [phone] * (ABNORMAL) Uric acid (11/30/2024 3:40 AM EDT) Uric Acid 11.2(H) 2.5 - 6.2 mg/dL 11/30/2024 12:18 PM EDT [facility] Blood Venipuncture / Unknown 11/30/2024 3:40 AM EDT 11/30/2024 4:09 AM EDT Hill Boo MD LAB BLOOD ORDERABLES Final Resu lt Performing Organization Address [facility]/ZIP Co de Phone Number [facility] [address] [phone] * Vitamin B12 (11/30/2024 3:40 AM EDT) Pathologist [facility] [place] Vitamin B12 678 213 - 816 pg/mL 11/30/2024 8:10 AM EDT [facility] Blood Venipuncture / Unknown 11/30/2024 3:40 AM EDT 11/30/2024 4:09 AM EDT Timothy Bai MD LAB BLOOD ORDERABLES Final Result Performing Organization Address [facility]/ZIP Co de Phone Number [facility] [address] [phone] * Iron, serum (11/30/2024 3:40 AM EDT) [facility] Iron 64 50 - 170 ug/dL 11/30/2024 8:10 AM EDT [facility] Blood Venipuncture / Unknown 11/30/2024 3:40 AM EDT 11/30/2024 4:09 AM EDT Timothy Bai MD LAB BLOOD ORDERABLES Final Result Performing Organization Address City/[facility]/ZIP Co de Phone Number [facility] [address] [phone] * (ABNORMAL) CBC - Hemogram (SJ-BKR) (11/30/2024 3:40 AM EDT) [facility] WBC 1.9(LL) 4.0 - 10.0 K/ L 11/30/2024 4:25 AM EDT [facility] RBC 2.63(L) 3.93 - 5.22 M/ L 11/30/2024 4:25 AM EDT [facility] Hemoglobin 8.2(L) 11.2 - 15.7 GM/DL 11/30/2024 4:25 AM EDT [facility] Hematocrit 26.3(L) 34.1 - 44.9 % 11/30/2024 4:25 AM EDT [facility] MCV 100(H) 79 - 95 fL 11/30/2024 4:25 AM EDT [facility] MCH 31.2 25.6 - 32.2 pg 11/30/2024 4:25 AM EDT [facility] MCHC 31.2(L) 32.2 - 35.5 GM/DL 11/30/2024 4:25 AM EDT [facility] RDW 16.2(H) 11.7 - 14.4 % 11/30/2024 4:25 AM EDT [facility] Platelets 64(L) 140 - 375 K/CU MM 11/30/2024 4:25 AM EDT [facility] MPV 10.4 9.4 - 12.3 fL 11/30/2024 4:25 AM EDT [facility] Blood Venipuncture / Unknown 11/30/2024 3:40 AM EDT 11/30/2024 4:10 AM EDT us Huey Hurtado MD LAB BLOOD ORDERABLES Final Resul t [facility] [address] [place] [address] * (ABNORMAL) Comprehensive Metabolic Panel (11/30/2024 3:40 AM EDT) Sodium 144 136 - 145 meq/L 11/30/2024 5:07 AM EDT [facility] Potassium 4.6 3.4 - 5.1 meq/L 11/30/2024 5:07 AM EDT [facility] Chloride 115(H) 98 - 112 meq/L 11/30/2024 5:07 AM EDT [facility] CO2 20(L) 22 - 29 meq/L 11/30/2024 5:07 AM [facility] Calcium 8.3(L) 8.4 - 10.2 mg/dL 11/30/2024 5:07 AM [facility] Glucose 86 82 - 115 mg/dL 11/30/2024 5:07 AM [facility] BUN 74.2(H) 9.8 - 20.1 mg/dL 11/30/2024 5:07 AM [facility] Creatinine 4.15(H) 0.57 - 1.11 mg/dL 11/30/2024 5:07 AM [facility] BUN/Creatinine 18 8 - 20 11/30/2024 5:07 AM [facility] eGFR (mL/min/1.73m2) 12(L) >=60 mL/min/1. 73m2 11/30/2024 5:07 AM [facility] Albumin 2.2(L) 3.5 - 5.0 g/dL 11/30/2024 5:07 AM [facility] Alkaline Phosphatase 83 40 - 150 U/L 11/30/2024 5:07 AM [facility] ALT 17 <=34 U/L 11/30/2024 5:07 AM [facility] Comment: ALT2 reagent used for testing does not contain P5P supplementation and therefore may miss ALT elevations in patients with B6 deficiency. This population may be as high as 10% in the [place], with risk factors including malabsorption, drug interactions, and alcoholic hepatitis. AST 43(H) 11 - 34 U/L 11/30/2024 5:07 AM [facility] Comment: AST2 reagent used for testing does not contain P5P supplementation and therefore may miss AST elevations in patients with B6 deficiency. This population may be as high as 10% in the [place], with risk factors including malabsorption, drug interactions, and alcoholic hepatitis. Total Bilirubin 0.8 0.2 - 1.2 mg/dL 11/30/2024 5:07 AM [facility] Protein, Total 6.5 6.4 - 8.3 g/dL 11/30/2024 5:07 AM [facility] Globulin 4.3(H) 2.5 - 4.1 g/dL 11/30/2024 5:07 AM EDT [facility] Anion Gap 14(H) 4 - 12 11/30/2024 5:07 AM EDT [facility] A/G Ratio 0.5(L) 0.7 - 1.9 11/30/2024 5:07 AM EDT [facility] Osmolality Calc 308.1 mOsm/kg 5:07 AM EDT [facility] Blood Venipuncture / Unknown 11/30/2024 3:40 AM EDT 11/30/2024 4:09 AM EDT us Huey Hurtado MD LAB BLOOD ORDERABLES Final Resul t Performing Organization Address [facility] Co de Phone Number [facility] [address] [phone] * Procalcitonin (11/30/2024 3:40 AM EDT) Procalcitonin 0.26 See Comment ng/mL 11/30/2024 5:07 AM EDT [facility] Comment: Sepsis comment <0.5 Antibiotics Discouraged [...] ORDERABLES Final Resul t Performing Organization Address [facility]/ZIP Co de Phone Number [facility] [address] [phone] * Blood Culture (11/30/2024 3:40 AM EDT) Result No growth in 5 days 12/05/2024 5:01 AM EDT [facility] Blood ENTIRE LEFT UPPER ARM / Unknown Venipuncture / Unknown 11/30/2024 3:40 AM EDT 11/30/2024 4:09 AM EDT us Huey Hurtado MD MICROBIOLOGY - GENERAL ORDERABLE S Final Result [facility] [address] [phone] * Ammonia (11/30/2024 3:40 AM EDT) Ammonia 59 18 - 72 mol/L 11/30/2024 4:51 AM EDT [facility] Blood Venipuncture / Unknown 11/30/2024 3:40 AM EDT 11/30/2024 4:10 AM EDT us Huey Hurtado MD LAB BLOOD ORDERABLES Final Resul t Performing Organization Address [facility] Co de Phone Number [facility] [address] [phone] * (ABNORMAL) Magnesium (11/30/2024 3:40 AM EDT) Magnesium 2.7(H) 1.6 - 2.6 mg/dL 11/30/2024 5:07 AM EDT [facility] Blood Venipuncture / Unknown 11/30/2024 3:40 AM EDT 11/30/2024 4:09 AM EDT us Huey Hurtado MD LAB BLOOD ORDERABLES Final Resul t Performing Organization Address [facility] Co de Phone Number [facility] [address] [phone] * Lactic Acid with reflex (11/30/2024 3:40 AM EDT) Lactic Acid Level (mmol/L) 0.9 0.5 - 2.2 mmol/L 11/30/2024 5:37 AM EDT [facility] Blood Venipuncture / Unknown 11/30/2024 3:40 AM EDT 11/30/2024 4:10 AM EDT us Huey Hurtado MD LAB BLOOD ORDERABLES Final Resul t Performing Organization Address City/[facility] Co de Phone Number [facility] [address] [phone] * aPTT (11/30/2024 3:40 AM EDT) aPTT 27.7 22.0 - 32.0 seconds 11/30/2024 4:32 AM EDT [facility] Blood Venipuncture / Unknown 11/30/2024 3:40 AM EDT 11/30/2024 4:10 AM EDT us Huey Hurtado MD LAB BLOOD ORDERABLES Final Resul t Performing Organization Address [facility] de Phone Number [facility] [address] [phone] * (ABNORMAL) Prothrombin time/INR (11/30/2024 3:40 AM EDT) Protime 12.9(H) 9.0 - 12.0 seconds 11/30/2024 4:32 AM EDT [facility] INR 1.17(H) 0.80 - 1.10 11/30/2024 4:32 AM EDT [facility] Comment: Recommended therapeutic ranges using International [...] MD LAB BLOOD ORDERABLES Final Resul t [facility] [address] [place] [address], [facility] [phone] * EKG-SCANNED (11/30/2024) Narrative 11/30/2024 Ordered by [...] as needed, intravenous, Starting on Fri12/02/24 at 1153, For 1 dose, Intra-op Given [...] Blood Sugar is less than 180 beteween [id number], DO NOT give corrective insulin unless otherwise [...] needed, intravenous, Starting on Denise 12/02/24 at 1158, For 1 dose, Intra-op Given [...] 12.5 mg 12.5 mg Once, oral, On Fri12/04/24 at 1130, For 1 dose, Caution: Recommend [...] RN) 2030 (Given - Provider: Jamal Lopez, DAAYNARA) bumetanide (BUMEX) tablet 2 mg 2 mg 2 times daily, oral, First dose (after last modification) on Fri12/10/24 at 1300 0839 (Given - Provider: Mary Lou Sidhu RN)2144 (Given - Provider: Alberto Bernal RN) 0903 (Given - Provider: Olimpia Mcmillan RN)2030 (Given - Provider: Jamal Lopez, DAYANARA) 0930 [...] Mcmillan RN)1420 (Given - Provider: Olimpia Mcmillan RN)2031 (Given - Provider: Jamal Lopez RN) 0930 (Given - Provider: Olimpia Mcmillan, DAYANARA)1608 (Given - Provider: Olimpia Mcmillan RN) insulin lispro (HUMALOG, ADMELOG) injection 0-18 Units 0-18 Units 4 times daily (before meals and nightly), subcutaneous, First dose on Fri11/30/24 at 0730, If Blood Sugar is less than 180 beteween [id number], DO NOT give corrective insulin unless otherwise [...] Patel RN)1211 (Given - Provider: Mary Lou Sidhu, DAYANARA)1609 (Given - Provider: Mary Lou Sidhu, DAYANARA)2204 (Given - Provider: Alberto Bernal RN) 0637 [...] 0840 (Given - Provider: Mary Lou Sidhu RN)2148 (Given - Provider: Alberto Bernal RN) 901 (Given - Provider: Olimpia Mcmillan, DAYANARA)2031 (Given - Provider: Jamal Lopez, DAYANARA) 0931 (Given - Provider: Olimpia Mcmillan, RN) metOLazone (ZAROXOLYN) tablet 2.5 mg 2.5 [...] 0840 (Given - Provider: Mary Lou Sidhu RN)2143 (Given - Provider: Alberto Bernal RN) 901 (Given - Provider: Olimpia Mcmillan, DAYANARA)2030 (Given - Provider: Jamal Lopez, DAYANARA) 0931 (Given - Provider: Olimpia Mcmillan, DAYANARA) rifAXIMin (XIFAXAN) tablet 550 mg 550 mg 2 times daily, oral, First dose on Fri11/30/24 at 1130 0840 (Given - Provider: Mary Lou Sidhu RN)2143 (Given - Provider: Alberto Bernal RN) 901 (Given - Provider: Olimpia Mcmillan, DAYANARA)2030 (Given [...] bin. 0840 (Given - Provider: Mary Lou Sidhu, RN) 0903 (Given - Provider: Olimpia Mcmillan, RN) 0930 (Given - Provider: Olimpia Mcmillan, RN) tamsulosin (FLOMAX) capsule 0.4 mg 0.4 mg [...] IV (CANCELED) Routine, Once, On Fri11/30/24 at 252, For 1 occurrence And sodium chloride flush 10 mLJump to med 10 mL As needed, intravenous, line care, Starting on Fri11/30/24 at 0252, Every 8 hours and PRN to flush documented in this encounter Care Teams Refiner Operator Relationship Specialty Start Date End Date [facility], [facility] [place] [address] PCP - General 11/30/24 12/13/24 Provider, Not In System [place] PCP - General 12/14/24 documented as of this encounter
--- OUTSIDE RECORDS SUMMARY | 2025-01-31 08:23 | XMS_ITS | Encounter Summary ---
Author Organization Healthcare Address [address] 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, unspecified vessel or lesion type (CMS/[facility]) Social History Tobacco Use Types Packs/Day [...] Description 02/22/2025 7:45 AM EDT Clinical Support [facility] [address] [place] [address] 02/22/2025 9:20 AM EDT Office Visit [facility] [place] [address] [facility] [address] [place] [address] Ollie Calvo MD [address] [facility] [address] [place] [address] 02/22/2025 10:00 AM EDT Office Visit [facility] [place] [address] [facility] [address] [place] [address] 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, 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 documented as of this encounter Visit Diagnoses Diagnosis CKD (chronic kidney disease) stage 2, GFR 60-89 ml/min Chronic kidney disease, Stage II (mild) Microalbuminuria Proteinuria 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, unspecified vessel or lesion type (CMS/HCC) documented in this encounter Additional Health Concerns Assessment Noted Time A fall risk assessment has been complete d for the patient 01/02/2022 1:17 PM EDT A Body Mass Index follow-up plan has been documented for the patient 11/13/2022 11:41 AM EDT documented as of this encounter Care Teams S3B Multi Sensor Operator Relationship Specialty Start Date End Date Larry Bedolla MD [address] [place] [address] PCP - General 12/08/20 01/18/25 Monika Hernandez APRN [address] [place] [address] PCP - General 01/19/25 Sary Brannon APRN [address] [place] [address] Referring Physician Gastroenterology 01/07/25 documented as of this encounter
--- OUTSIDE RECORDS SUMMARY | 2025-01-31 08:23 | XMS_ITS | Data Portability ---
Author Organization [facility] Address [address] [place] [address] Assessment No assessment recorded. Plan of Treatment Reminders Order Date Submit Date Provider Last Modified By Organization Details Last Modified Time Details Appointments None recorded. Lab microalbumi n/creatinin e, mass ratio, urine 2023 024 [facility] (Lab), [address] [facility] [address], [place], [address], 5 10:22:00 HbA1c (hemoglobin A1c), blood 2023 024 [facility] (Lab), [address] [facility] [address], [place], [address], 5 10:21:59 CMP, serum or plasma 2023 024 [facility] (Lab), [address] [facility] [address], [place], [address], 5 10:21:59 CBC w/ auto diff 2023 024 [facility] (Lab), [address] [facility] [address], [place], [address], 5 10:21:59 lipid panel, serum 2023 024 [facility] (Lab), [address], [place], [address], 5 10:22:00 CBC w/ auto diff 2022 023 [facility] Nguyenjillian, [address], [address] F, [place], [address], 3 13:06:54 HbA1c (hemoglobin A1c), blood 2022 023 A[facility] Leroydanilo, [address], [address], [place], [address], 3 13:06:57 C-peptide, serum 2022 023 A[facility] Leroydanilo, [address], [address], [place], [address], 3 13:06:56 CMP, serum or plasma 2022 023 A[facility] Leroydanilo, [address], [place] [place], [place], [address], 3 13:06:55 microalbumi n/creatinin e, mass ratio, urine 2022 023 [facility] Nguyenjillian, [address], [place], [place], [address], 3 13:06:56 CMP, serum or plasma 2022 023 A[facility] Leroydanilo, [address], [place] [place], [place], [address], 3 11:08:27 lipid panel, serum 2022 023 A[facility] Labdanilo, [address], [place] [place], [place], [address], 3 11:08:28 HbA1c (hemoglobin A1c), blood 2022 023 A[facility] Leroydanilo, [address], [place] [place], [place], [address], 3 11:08:29 CBC w/ auto diff 2022 023 A[facility] Leroydanilo, [address], [place] [place], [place], [address], 3 11:08:27 HbA1c (hemoglobin A1c), blood 2021 022 [facility] Greg, [address], [place] [place], [place], [address], 2 11:07:51 CMP, serum or plasma 2021 022 A[facility] Greg, [address], [place] [place], [place], [address], 2 11:07:49 CBC w/ auto diff 2021 022 ABE Greg, [address], [place], [place], [address], 2 11:07:48 lipid panel, serum 2021 022 ABE Greg, [address], [address], [place], [address], 2 11:07:50 albumin/cre atinine, mass ratio, urine 2021 022 ABESMA Garza, [address], [place] [place], [place], [address], 2 11:07:50 C-peptide, serum 2021 022 ABE Garza, [address], [address], [place], [address], 2 11:07:51 Referral None recorded. Procedures None recorded. Surgeries None recorded. Imaging None recorded. Medication Orders Mounjaro 2.5 mg/0.5 mL subcutaneou s pen injector 2023 024 [facility], [address] [address] [place], [id number], 4 16:05:05 Glucagon Emergency Kit 1 mg solution for injection 2022 023 [facility], [address] [place] [address] [place], [id number], 3 13:31:18 Fiasp U-100 Insulin 100 unit/mL subcutaneou s solution 2022 023 [facility], [facility] [address] [place], [id number], 3 13:35:16 Keflex 500 mg capsule [facility] [address] [place], [place] [address], [id number], 3 11:31:54 Patient TargetsNo targets recorded. Patient Instructions Encounter Date Encounter Id Patient Instructions Last Modified By Organization Details Last Modified Time 04/22/2023 [id number] learning about healthy weight efryman Not available 04/22/2023 10:44:48 body mass index: care instructions efryacosta Not available 04/22/2023 10:44:48 Reason for Referral None Reported. Results Created Date Observation Date Name Description Value Unit Range Abnormal Flag Note LastModifiedBy Organization Detail LastModifiedTime 05/29/20 22 05/29/2022 CBC WITH DIFFE RENTI AL/PL ATELE T WBC 3.3 x10e3 /uL 3.4-10 .8 below low normal Not Available [facility] ([facility]) [address] [facility], [place], [address], 05/29/2022 11:07:48 05/29/20 22 05/29/2022 CBC WITH DIFFE RENTI AL/PL ATELE T RBC 4.52 x10e6 /uL 3.77-5 .28 Not Available [facility] ([facility]) [address] [facility], [place], [address], 05/29/2022 11:07:48 05/29/20 22 05/29/2022 CBC WITH DIFFE RENTI AL/PL ATELE T hemoglobin 14.0 g/dL 11.1-1 5.9 Not Available [facility] ([facility]) [address] [facility], [place], [address], 05/29/2022 11:07:48 05/29/20 22 05/29/2022 CBC WITH DIFFE RENTI AL/PL ATELE T hematocrit 44.3 % 34.0-4 6.6 Not Available [facility] ([facility]) [address] [facility], [place], [address], 05/29/2022 11:07:48 05/29/20 22 05/29/2022 CBC WITH DIFFE RENTI AL/PL ATELE T MCV 98 fL 79-97 above high normal Not Available [facility] ([facility]) [address] [place], [address], 05/29/2022 11:07:48 05/29/20 22 05/29/2022 CBC WITH DIFFE RENTI AL/PL ATELE T MCH 31.0 pg 26.6-3 3.0 Not Available [facility] ([facility]) [address] [place], [address], 05/29/2022 11:07:48 05/29/20 22 05/29/2022 CBC WITH DIFFE RENTI AL/PL ATELE T MCHC 31.6 g/dL 31.5-3 5.7 Not Available [facility] ([facility]) [address] [place], [address], 05/29/2022 11:07:48 05/29/20 22 05/29/2022 CBC WITH DIFFE RENTI AL/PL ATELE T RDW 13.9 % 11.7-1 5.4 Not Available [facility] ([facility]) [address] [facility], [place], [address], 05/29/2022 11:07:48 05/29/20 22 05/29/2022 CBC WITH DIFFE RENTI AL/PL ATELE T platelets 88 x10e3 /uL 150-45 0 alert low Actua l plate let count may be somew hat highe r than repor sharla due to aggre gatio n of plate lets in this sampl e. Not Available [facility] ([facility]) [address] [facility], [place], [address], 05/29/2022 11:07:48 05/29/20 22 05/29/2022 CBC WITH DIFFE RENTI AL/PL ATELE T neutrophils 62 % not estab. Not Available [facility] ([facility]) [address] [facility], [place], [address], 05/29/2022 11:07:48 05/29/20 22 05/29/2022 CBC WITH DIFFE RENTI AL/PL ATELE T lymphs 28 % not estab. Not Available [facility] ([facility]) [address] [facility], [place], [address], 05/29/2022 11:07:48 05/29/20 22 05/29/2022 CBC WITH DIFFE RENTI AL/PL ATELE T monocytes 8 % not estab. Not Available [facility] ([facility]) [address] [facility], [place], [address], 05/29/2022 11:07:48 05/29/20 22 05/29/2022 CBC WITH DIFFE RENTI AL/PL ATELE T eos 2 % not estab. Not Available [facility] ([facility]) [address] [facility], [place], [address], 05/29/2022 11:07:48 05/29/20 22 05/29/2022 CBC WITH DIFFE RENTI AL/PL ATELE T basos 0 % not estab. Not Available [facility] ([facility]) [address] [facility], [place], [address], 05/29/2022 11:07:48 05/29/20 22 05/29/2022 CBC WITH DIFFE RENTI AL/PL ATELE T immature cells TRADE ECONOMIST Not Available [facility] ([facility]) [address] [facility], [place], [address], 05/29/2022 11:07:48 05/29/20 22 05/29/2022 CBC WITH DIFFE RENTI AL/PL ATELE T neutrophils (absolute) 2.1 x10e3 /uL 1.4-7. 0 Not Available [facility] ([facility]) [address] [facility], [place], [address], 05/29/2022 11:07:48 05/29/20 22 05/29/2022 CBC WITH DIFFE RENTI AL/PL ATELE T lymphs (absolute) 0.9 x10e3 /uL 0.7-3. 1 Not Available [facility] ([facility]) [address] [place], [address], 05/29/2022 11:07:48 05/29/20 22 05/29/2022 CBC WITH DIFFE RENTI AL/PL ATELE T monocytes(ab solute) 0.3 x10e3 /uL 0.1-0. 9 Not Available [facility] ([facility]) [address] [place], [address], 05/29/2022 11:07:48 05/29/20 22 05/29/2022 CBC WITH DIFFE RENTI AL/PL ATELE T eos (absolute) 0.1 x10e3 /uL 0.0-0. 4 Not Available [facility] ([facility]) [address] [place], [address], 05/29/2022 11:07:48 05/29/20 22 05/29/2022 CBC WITH DIFFE RENTI AL/PL ATELE T baso (absolute) 0.0 x10e3 /uL 0.0-0. 2 Not Available [facility] ([facility]) [address] [facility], [place], [address], 05/29/2022 11:07:48 05/29/20 22 05/29/2022 CBC WITH DIFFE RENTI AL/PL ATELE T immature granulocytes 0 % not estab. Not Available [facility] ([facility]) [address] [facility], [place], [address], 05/29/2022 11:07:48 05/29/20 22 05/29/2022 CBC WITH DIFFE RENTI AL/PL ATELE T immature grans (abs) 0.0 x10e3 /uL 0.0-0. 1 Not Available [facility] ([facility]) [address] [facility], [place], [address], 05/29/2022 11:07:48 05/29/20 22 05/29/2022 CBC WITH DIFFE RENTI AL/PL ATELE T NRBC TRADE ECONOMIST Not Available [facility] ([facility]) [address] [facility], [place], [address], 05/29/2022 11:07:48 05/29/20 22 05/29/2022 CBC WITH DIFFE RENTI AL/PL ATELE T hematology comments: Note: Verif ied by micro scopi c exami natsimeon n. Not Available [facility] ([facility]) [address] [facility], [place], [address], 05/29/2022 11:07:48 05/29/20 22 05/29/2022 COMP. METAB OLIC PANEL (14) glucose 111 mg/dL 70-99 above high normal Not Available [facility] ([facility]) [address] [facility], [place], [address], 05/29/2022 11:07:49 05/29/20 22 05/29/2022 COMP. METAB OLIC PANEL (14) BUN 13 mg/dL 8-27 Not Available [facility] ([facility]) [address] [facility] [place], [address], 05/29/2022 11:07:49 05/29/20 22 05/29/2022 COMP. METAB OLIC PANEL (14) creatinine 0.93 mg/dL 0.57-1 .00 Not Available [facility] ([facility]) [address] [facility] [place], [address], 05/29/2022 11:07:49 05/29/20 22 05/29/2022 COMP. METAB OLIC PANEL (14) eGFR 70 mL/mi n/1.7 3 >59 Not Available [facility] ([facility]) [address] [facility] [place], [address], 05/29/2022 11:07:49 05/29/20 22 05/29/2022 COMP. METAB OLIC PANEL (14) BUN/creatini ne ratio 14 12-28 Not Available [facility] ([facility]) [address] [facility] [place], [address], 05/29/2022 11:07:49 05/29/20 22 05/29/2022 COMP. METAB OLIC PANEL (14) sodium 145 mmol/ L 134-14 4 above high normal Not Available [facility] ([facility]) [address] [facility] [place], [address], 05/29/2022 11:07:49 05/29/20 22 05/29/2022 COMP. METAB OLIC PANEL (14) potassium 4.5 mmol/ L 3.5-5. 2 Not Available [facility] ([facility]) [address] [facility] [place], [address], 05/29/2022 11:07:49 05/29/20 22 05/29/2022 COMP. METAB OLIC PANEL (14) chloride 106 mmol/ L 96-106 Not Available [facility] ([facility]) [address] [facility] [place], [address], 05/29/2022 11:07:49 05/29/20 22 05/29/2022 COMP. METAB OLIC PANEL (14) carbon dioxide, total 28 mmol/ L 20-29 Not Available [facility] ([facility]) [address] [facility], [place], [address], 05/29/2022 11:07:49 05/29/20 22 05/29/2022 COMP. METAB OLIC PANEL (14) calcium 9.4 mg/dL 8.7-10 .3 Not Available [facility] ([facility]) [address] [place], [address], 05/29/2022 11:07:49 05/29/20 22 05/29/2022 COMP. METAB OLIC PANEL (14) protein, total 7.2 g/dL 6.0-8. 5 Not Available [facility] ([facility]) [address] [facility] [place], [address], 05/29/2022 11:07:49 05/29/20 22 05/29/2022 COMP. METAB OLIC PANEL (14) albumin 3.9 g/dL 3.8-4. 9 Not Available [facility] ([facility]) [address] [facility], [place], [address], 05/29/2022 11:07:49 05/29/20 22 05/29/2022 COMP. METAB OLIC PANEL (14) globulin, total 3.3 g/dL 1.5-4. 5 Not Available [facility] ([facility]) [address] [facility] [place], [address], 05/29/2022 11:07:49 05/29/20 22 05/29/2022 COMP. METAB OLIC PANEL (14) A/G ratio 1.2 1.2-2. 2 Not Available [facility] ([facility]) [address] [facility] [place], [address], 05/29/2022 11:07:49 05/29/20 22 05/29/2022 COMP. METAB OLIC PANEL (14) bilirubin, total 0.6 mg/dL 0.0-1. 2 Not Available [facility] ([facility]) [address] [place], [address], 05/29/2022 11:07:49 05/29/20 22 05/29/2022 COMP. METAB OLIC PANEL (14) alkaline phosphatase 164 IU/L 44-121 above high normal Not Available [facility] ([facility]) [address] [place], [address], 05/29/2022 11:07:49 05/29/20 22 05/29/2022 COMP. METAB OLIC PANEL (14) AST (SGOT) 50 IU/L 0-40 above high normal Not Available [facility] ([facility]) [address] [place], [address], 05/29/2022 11:07:49 05/29/20 22 05/29/2022 COMP. METAB OLIC PANEL (14) ALT (SGPT) 41 IU/L 0-32 above high normal Not Available [facility] ([facility]) [address] [place], [address], 05/29/2022 11:07:49 05/29/20 22 05/29/2022 LIPID PANEL cholesterol, total 170 mg/dL 100-19 9 Not Available [facility] ([facility]) [address] [place], [address], 05/29/2022 11:07:50 05/29/20 22 05/29/2022 LIPID PANEL triglyceride s 88 mg/dL 0-149 Not Available [facility] ([facility]) [address] [place], [address], 05/29/2022 11:07:50 05/29/20 22 05/29/2022 LIPID PANEL HDL cholesterol 53 mg/dL >39 Not Available [facility] ([facility]) [address] [facility], [place], [address], 05/29/2022 11:07:50 05/29/20 22 05/29/2022 LIPID PANEL VLDL cholesterol jenniffer 16 mg/dL 5-40 Not Available [facility] ([facility]) [address] [place], [address], 05/29/2022 11:07:50 05/29/20 22 05/29/2022 LIPID PANEL LDL chol calc ([facility]) 101 mg/dL 0-99 above high normal Not Available [facility] ([facility]) [address] [place], [address], 05/29/2022 11:07:50 05/29/20 22 05/29/2022 LIPID PANEL comment: TRADE ECONOMIST Not Available [facility] ([facility]) [address] [place], [address], 05/29/2022 11:07:50 05/29/20 22 05/29/2022 ALBUM IN/CR EATIN INE RATIO ,URIN E creatinine, urine 147.7 mg/dL not estab. Not Available [facility] ([facility]) [address] [place], [address], 05/29/2022 11:07:50 05/29/20 22 05/29/2022 ALBUM IN/CR EATIN INE RATIO ,URIN E albumin, urine 80.0 ug/mL not estab. Not Available [facility] ([facility]) [address] [place], [address], 05/29/2022 11:07:50 05/29/20 22 05/29/2022 ALBUM IN/CR EATIN INE RATIO ,URIN E alb/creat ratio 54 mg/g_ creat 0-29 above high normal Blanka l: 0 - 29 Moder ately incre ased: 30 - 300 Sever lemuel incre ased: >300 Not Available [facility] ([facility]) [address] [place], [address], 05/29/2022 11:07:50 05/29/20 22 05/29/2022 HEMOG LOBIN A1C hemoglobin A1C 10.7 % 4.8-5. 6 above high normal Predi abete s: 5.7 - 6.4 Diabe reynold: >6.4 Glyce eve contr ol for adult s with diabe reynold: <7.0 Not Available [facility] ([facility]) [address] [facility], [place], [address], 05/29/2022 11:07:51 05/29/20 22 05/29/2022 C-PEP TIDE, SERUM C-peptide, serum 3.2 NG/mL 1.1-4. 4 C-Pep tide refer ence inter rimma is for fasti ng patie nts. Not Available [facility] ([facility]) [address] [facility], [place], [address], 05/29/2022 11:07:51 05/29/20 22 05/29/2022 PLESRUTHI E NOTE please note Commen t The date and/o r time of colle ction was not indic ated on the requi sitio n as requi red by state and [place] law. The date of recei pt of the speci men was used as the colle ction date if not suppl ied. Not Available [facility] ([facility]) [address] [facility], [place], [address], 05/29/2022 11:07:52 09/03/19 23 09/04/2022 CBC WITH DIFFE RENTI AL/PL ATELE T WBC 3.4 x10e3 /uL 3.4-10 .8 Not Available [facility] ([facility]) [address] [facility], [place], [address], 09/04/2022 11:08:26 09/03/19 23 09/04/2022 CBC WITH DIFFE RENTI AL/PL ATELE T RBC 4.18 x10e6 /uL 3.77-5 .28 Not Available [facility] ([facility]) [address] [facility], [place], [address], 09/04/2022 11:08:26 09/03/19 23 09/04/2022 CBC WITH DIFFE RENTI AL/PL ATELE T hemoglobin 13.2 g/dL 11.1-1 5.9 Not Available [facility] ([facility]) [address] [facility], [place], [address], 09/04/2022 11:08:26 09/03/19 23 09/04/2022 CBC WITH DIFFE RENTI AL/PL ATELE T hematocrit 39.4 % 34.0-4 6.6 Not Available [facility] ([facility]) [address] [facility], [place], [address], 09/04/2022 11:08:26 09/03/19 23 09/04/2022 CBC WITH DIFFE RENTI AL/PL ATELE T MCV 94 fL 79-97 Not Available [facility] ([facility]) [address] [place], [address], 09/04/2022 11:08:26 09/03/19 23 09/04/2022 CBC WITH DIFFE RENTI AL/PL ATELE T MCH 31.6 pg 26.6-3 3.0 Not Available [facility] ([facility]) [address] [place], [address], 09/04/2022 11:08:26 09/03/19 23 09/04/2022 CBC WITH DIFFE RENTI AL/PL ATELE T MCHC 33.5 g/dL 31.5-3 5.7 Not Available [facility] ([facility]) [address] [place], [address], 09/04/2022 11:08:26 09/03/19 23 09/04/2022 CBC WITH DIFFE RENTI AL/PL ATELE T RDW 13.9 % 11.7-1 5.4 Not Available [facility] ([facility]) [address] [facility], [place], [address], 09/04/2022 11:08:26 09/03/19 23 09/04/2022 CBC WITH DIFFE RENTI AL/PL ATELE T platelets 89 x10e3 /uL 150-45 0 alert low Plate let count verif ied by exami natsimeon n of perip heral blood smear . Not Available [facility] ([facility]) [address] [facility], [place], [address], 09/04/2022 11:08:26 09/03/19 23 09/04/2022 CBC WITH DIFFE RENTI AL/PL ATELE T neutrophils 58 % not estab. Not Available [facility] ([facility]) [address] [facility], [place], [address], 09/04/2022 11:08:26 09/03/19 23 09/04/2022 CBC WITH DIFFE RENTI AL/PL ATELE T lymphs 32 % not estab. Not Available [facility] ([facility]) [address] [facility], [place], [address], 09/04/2022 11:08:26 09/03/19 23 09/04/2022 CBC WITH DIFFE RENTI AL/PL ATELE T monocytes 9 % not estab. Not Available [facility] ([facility]) [address] [facility], [place], [address], 09/04/2022 11:08:26 09/03/19 23 09/04/2022 CBC WITH DIFFE RENTI AL/PL ATELE T eos 1 % not estab. Not Available [facility] ([facility]) [address] [facility], [place], [address], 09/04/2022 11:08:26 09/03/19 23 09/04/2022 CBC WITH DIFFE RENTI AL/PL ATELE T basos 0 % not estab. Not Available [facility] ([facility]) [address] [facility], [place], [address], 09/04/2022 11:08:26 09/03/19 23 09/04/2022 CBC WITH DIFFE RENTI AL/PL ATELE T immature cells TRADE ECONOMIST Not Available [facility] ([facility]) [address] [facility], [place], [address], 09/04/2022 11:08:26 09/03/19 23 09/04/2022 CBC WITH DIFFE RENTI AL/PL ATELE T neutrophils (absolute) 1.9 x10e3 /uL 1.4-7. 0 Not Available [facility] ([facility]) [address] [facility], [place], [address], 09/04/2022 11:08:26 09/03/19 23 09/04/2022 CBC WITH DIFFE RENTI AL/PL ATELE T lymphs (absolute) 1.1 x10e3 /uL 0.7-3. 1 Not Available [facility] ([facility]) [address] [place], [address], 09/04/2022 11:08:26 09/03/19 23 09/04/2022 CBC WITH DIFFE RENTI AL/PL ATELE T monocytes(ab solute) 0.3 x10e3 /uL 0.1-0. 9 Not Available [facility] ([facility]) [address] [place], [address], 09/04/2022 11:08:26 09/03/19 23 09/04/2022 CBC WITH DIFFE RENTI AL/PL ATELE T eos (absolute) 0.0 x10e3 /uL 0.0-0. 4 Not Available [facility] ([facility]) [address] [place], [address], 09/04/2022 11:08:26 09/03/19 23 09/04/2022 CBC WITH DIFFE RENTI AL/PL ATELE T baso (absolute) 0.0 x10e3 /uL 0.0-0. 2 Not Available [facility] ([facility]) [address] [facility], [place], [address], 09/04/2022 11:08:26 09/03/19 23 09/04/2022 CBC WITH DIFFE RENTI AL/PL ATELE T immature granulocytes 0 % not estab. Not Available [facility] ([facility]) [address] [facility], [place], [address], 09/04/2022 11:08:26 09/03/19 23 09/04/2022 CBC WITH DIFFE RENTI AL/PL ATELE T immature grans (abs) 0.0 x10e3 /uL 0.0-0. 1 Not Available [facility] ([facility]) [address] [facility], [place], [address], 09/04/2022 11:08:26 09/03/19 23 09/04/2022 CBC WITH DIFFE RENTI AL/PL ATELE T NRBC TRADE ECONOMIST Not Available [facility] ([facility]) [address] [facility], [place], [address], 09/04/2022 11:08:26 09/03/19 23 09/04/2022 CBC WITH DIFFE RENTI AL/PL ATELE T hematology comments: Note: Verif ied by micro bossman laceyi natsimeon n. Not Available [facility] ([facility]) [address] [facility], [place], [address], 09/04/2022 11:08:26 09/03/19 23 09/04/2022 COMP. METAB OLIC PANEL (14) glucose 87 mg/dL 70-99 Not Available [facility] ([facility]) [address] [facility], [place], [address], 09/04/2022 11:08:27 09/03/19 23 09/04/2022 COMP. METAB OLIC PANEL (14) BUN 16 mg/dL 8-27 Not Available [facility] ([facility]) [address] [facility] [place], [address], 09/04/2022 11:08:27 09/03/19 23 09/04/2022 COMP. METAB OLIC PANEL (14) creatinine 1.02 mg/dL 0.57-1 .00 above high normal Not Available [facility] ([facility]) [address] [facility] [place], [address], 09/04/2022 11:08:27 09/03/19 23 09/04/2022 COMP. METAB OLIC PANEL (14) eGFR 63 mL/mi n/1.7 3 >59 Not Available [facility] ([facility]) [address] [facility] [place], [address], 09/04/2022 11:08:27 09/03/19 23 09/04/2022 COMP. METAB OLIC PANEL (14) BUN/creatini ne ratio 16 12-28 Not Available [facility] ([facility]) [address] [facility] [place], [address], 09/04/2022 11:08:27 09/03/19 23 09/04/2022 COMP. METAB OLIC PANEL (14) sodium 145 mmol/ L 134-14 4 above high normal Not Available [facility] ([facility]) [address] [facility] [place], [address], 09/04/2022 11:08:27 09/03/19 23 09/04/2022 COMP. METAB OLIC PANEL (14) potassium 4.3 mmol/ L 3.5-5. 2 Not Available [facility] ([facility]) [address] [facility] [place], [address], 09/04/2022 11:08:27 09/03/19 23 09/04/2022 COMP. METAB OLIC PANEL (14) chloride 108 mmol/ L 96-106 above high normal Not Available [facility] ([facility]) [address] [facility] [place], [address], 09/04/2022 11:08:27 09/03/19 23 09/04/2022 COMP. METAB OLIC PANEL (14) carbon dioxide, total 26 mmol/ L 20-29 Not Available [facility] ([facility]) [address], [place], [address], 09/04/2022 11:08:27 09/03/19 23 09/04/2022 COMP. METAB OLIC PANEL (14) calcium 9.2 mg/dL 8.7-10 .3 Not Available [facility] ([facility]) [address], [place], [address], 09/04/2022 11:08:27 09/03/19 23 09/04/2022 COMP. METAB OLIC PANEL (14) protein, total 7.0 g/dL 6.0-8. 5 Not Available [facility] ([facility]) [address] [facility], [place], [address], 09/04/2022 11:08:27 09/03/19 23 09/04/2022 COMP. METAB OLIC PANEL (14) albumin 3.8 g/dL 3.8-4. 9 Not Available [facility] ([facility]) [address] [facility] [address], [place], [address], 09/04/2022 11:08:27 09/03/19 23 09/04/2022 COMP. METAB OLIC PANEL (14) globulin, total 3.2 g/dL 1.5-4. 5 Not Available [facility] ([facility]) [address] [place] [place], [address], 09/04/2022 11:08:27 09/03/19 23 09/04/2022 COMP. METAB OLIC PANEL (14) A/G ratio 1.2 1.2-2. 2 Not Available [facility] ([facility]) [address] [facility], [place], [address], 09/04/2022 11:08:27 09/03/19 23 09/04/2022 COMP. METAB OLIC PANEL (14) bilirubin, total 0.6 mg/dL 0.0-1. 2 Not Available [facility] ([facility]) [address] [place], [address], 09/04/2022 11:08:27 09/03/19 23 09/04/2022 COMP. METAB OLIC PANEL (14) alkaline phosphatase 153 IU/L 44-121 above high normal Not Available [facility] ([facility]) [address] [place], [address], 09/04/2022 11:08:27 09/03/19 23 09/04/2022 COMP. METAB OLIC PANEL (14) AST (SGOT) 55 IU/L 0-40 above high normal Not Available [facility] ([facility]) [address] [place], [address], 09/04/2022 11:08:27 09/03/19 23 09/04/2022 COMP. METAB OLIC PANEL (14) ALT (SGPT) 41 IU/L 0-32 above high normal Not Available [facility] ([facility]) [address] [place], [address], 09/04/2022 11:08:27 09/03/19 23 09/04/2022 LIPID PANEL cholesterol, total 150 mg/dL 100-19 9 Not Available [facility] ([facility]) [address] [place], [address], 09/04/2022 11:08:28 09/03/19 23 09/04/2022 LIPID PANEL triglyceride s 125 mg/dL 0-149 Not Available [facility] ([facility]) [address] [place], [address], 09/04/2022 11:08:28 09/03/19 23 09/04/2022 LIPID PANEL HDL cholesterol 37 mg/dL >39 below low normal Not Available [facility] ([facility]) [address] [facility], [place], [address], 09/04/2022 11:08:28 09/03/19 23 09/04/2022 LIPID PANEL VLDL cholesterol jenniffer 23 mg/dL 5-40 Not Available [facility] ([facility]) [address] [facility] [place], [address], 09/04/2022 11:08:28 09/03/19 23 09/04/2022 LIPID PANEL LDL chol calc ([facility]) 90 mg/dL 0-99 Not Available [facility] ([facility]) [address] [facility] [place], [address], 09/04/2022 11:08:28 09/03/19 23 09/04/2022 LIPID PANEL 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 6 above high normal Predi abete s: 5.7 - 6.4 Diabe reynold: >6.4 Glyce eve contr ol for adult s with diabe reynold: <7.0 Not Available [facility] ([facility]) [address] [facility], [place], [address], 09/04/2022 11:08:29 04/22/20 23 04/23/2023 CBC WITH DIFFE RENTI AL/PL ATELE T WBC 2.4 x10e3 /uL 3.4-10 .8 alert low Not Available [facility] ([facility]) [address] [place], [address], 04/23/2023 13:06:54 04/22/20 23 04/23/2023 CBC WITH DIFFE RENTI AL/PL ATELE T RBC 4.19 x10e6 /uL 3.77-5 .28 Not Available [facility] ([facility]) [address] [facility], [place], [address], 04/23/2023 13:06:54 04/22/20 23 04/23/2023 CBC WITH DIFFE RENTI AL/PL ATELE T hemoglobin 13.7 g/dL 11.1-1 5.9 Not Available [facility] ([facility]) [address] [facility], [place], [address], 04/23/2023 13:06:54 04/22/20 23 04/23/2023 CBC WITH DIFFE RENTI AL/PL ATELE T hematocrit 41.2 % 34.0-4 6.6 Not Available [facility] ([facility]) [address] [facility], [place], [address], 04/23/2023 13:06:54 04/22/20 23 04/23/2023 CBC WITH DIFFE RENTI AL/PL ATELE T MCV 98 fL 79-97 above high normal Not Available [facility] ([facility]) [address] [facility], [place], [address], 04/23/2023 13:06:54 04/22/20 23 04/23/2023 CBC WITH DIFFE RENTI AL/PL ATELE T MCH 32.7 pg 26.6-3 3.0 Not Available [facility] ([facility]) [address] [place], [address], 04/23/2023 13:06:54 04/22/20 23 04/23/2023 CBC WITH DIFFE RENTI AL/PL ATELE T MCHC 33.3 g/dL 31.5-3 5.7 Not Available [facility] ([facility]) [address] [place], [address], 04/23/2023 13:06:54 04/22/20 23 04/23/2023 CBC WITH DIFFE RENTI AL/PL ATELE T RDW 13.9 % 11.7-1 5.4 Not Available [facility] ([facility]) [address] [facility], [place], [address], 04/23/2023 13:06:54 04/22/20 23 04/23/2023 CBC WITH DIFFE RENTI AL/PL ATELE T platelets 71 x10e3 /uL 150-45 0 alert low Plate let count verif ied by exami christiano n of perip heral blood smear . Not Available [facility] ([facility]) [address] [facility], [place], [address], 04/23/2023 13:06:54 04/22/20 23 04/23/2023 CBC WITH DIFFE RENTI AL/PL ATELE T neutrophils 62 % not estab. Not Available [facility] ([facility]) [address] [facility], [place], [address], 04/23/2023 13:06:54 04/22/20 23 04/23/2023 CBC WITH DIFFE RENTI AL/PL ATELE T lymphs 29 % not estab. Not Available [facility] ([facility]) [address] [facility], [place], [address], 04/23/2023 13:06:54 04/22/20 23 04/23/2023 CBC WITH DIFFE RENTI AL/PL ATELE T monocytes 9 % not estab. Not Available [facility] ([facility]) [address] [facility], [place], [address], 04/23/2023 13:06:54 04/22/20 23 04/23/2023 CBC WITH DIFFE RENTI AL/PL ATELE T eos 0 % not estab. Not Available [facility] ([facility]) [address] [place], [address], 04/23/2023 13:06:54 04/22/20 23 04/23/2023 CBC WITH DIFFE RENTI AL/PL ATELE T basos 0 % not estab. Not Available [facility] ([facility]) [address] [facility], [place], [address], 04/23/2023 13:06:54 04/22/20 23 04/23/2023 CBC WITH DIFFE RENTI AL/PL ATELE T immature cells TRADE ECONOMIST Not Available [facility] ([facility]) [address] [facility], [place], [address], 04/23/2023 13:06:54 04/22/20 23 04/23/2023 CBC WITH DIFFE RENTI AL/PL ATELE T neutrophils (absolute) 1.5 x10e3 /uL 1.4-7. 0 Not Available [facility] ([facility]) [address] [facility], [place], [address], 04/23/2023 13:06:54 04/22/20 23 04/23/2023 CBC WITH DIFFE RENTI AL/PL ATELE T lymphs (absolute) 0.7 x10e3 /uL 0.7-3. 1 Not Available [facility] ([facility]) [address] [facility], [place], [address], 04/23/2023 13:06:54 04/22/20 23 04/23/2023 CBC WITH DIFFE RENTI AL/PL ATELE T monocytes(ab solute) 0.2 x10e3 /uL 0.1-0. 9 Not Available [facility] ([facility]) [address] [facility], [place], [address], 04/23/2023 13:06:54 04/22/20 23 04/23/2023 CBC WITH DIFFE RENTI AL/PL ATELE T eos (absolute) 0.0 x10e3 /uL 0.0-0. 4 Not Available [facility] ([facility]) [address] [place], [address], 04/23/2023 13:06:54 04/22/20 23 04/23/2023 CBC WITH DIFFE RENTI AL/PL ATELE T baso (absolute) 0.0 x10e3 /uL 0.0-0. 2 Not Available [facility] ([facility]) [address] [facility], [place], [address], 04/23/2023 13:06:54 04/22/20 23 04/23/2023 CBC WITH DIFFE RENTI AL/PL ATELE T immature granulocytes 0 % not estab. Not Available [facility] ([facility]) [address] [facility], [place], [address], 04/23/2023 13:06:54 04/22/20 23 04/23/2023 CBC WITH DIFFE RENTI AL/PL ATELE T immature grans (abs) 0.0 x10e3 /uL 0.0-0. 1 Not Available [facility] ([facility]) [address] [facility], [place], [address], 04/23/2023 13:06:54 04/22/20 23 04/23/2023 CBC WITH DIFFE RENTI AL/PL ATELE T NRBC TRADE ECONOMIST Not Available [facility] ([facility]) [address] [facility], [place], [address], 04/23/2023 13:06:54 04/22/20 23 04/23/2023 CBC WITH DIFFE RENTI AL/PL ATELE T hematology comments: Note: Verif ied by tristen avlarado nAkhil Not Available [facility] ([facility]) [address] [place], [address], 04/23/2023 13:06:54 04/22/20 23 04/23/2023 COMP. METAB OLIC PANEL (14) glucose 322 mg/dL 70-99 above high normal Not Available [facility] ([facility]) [address] [place], [address], 04/23/2023 13:06:55 04/22/20 23 04/23/2023 COMP. METAB OLIC PANEL (14) BUN 26 mg/dL 8-27 Not Available [facility] ([facility]) [address] [place], [address], 04/23/2023 13:06:55 04/22/20 23 04/23/2023 COMP. METAB OLIC PANEL (14) creatinine 1.39 mg/dL 0.57-1 .00 above high normal Not Available [facility] ([facility]) [address] [facility] [place], [address], 04/23/2023 13:06:55 04/22/20 23 04/23/2023 COMP. METAB OLIC PANEL (14) eGFR 43 mL/mi n/1.7 3 >59 below low normal Not Available [facility] ([facility]) [address] [facility] [place], [address], 04/23/2023 13:06:55 04/22/20 23 04/23/2023 COMP. METAB OLIC PANEL (14) BUN/creatini ne ratio 19 12-28 Not Available [facility] ([facility]) [address] [facility], [place], [address], 04/23/2023 13:06:55 04/22/20 23 04/23/2023 COMP. METAB OLIC PANEL (14) sodium 143 mmol/ L 134-14 4 Not Available [facility] ([facility]) [address] [facility] [place], [address], 04/23/2023 13:06:55 04/22/20 23 04/23/2023 COMP. METAB OLIC PANEL (14) potassium 5.1 mmol/ L 3.5-5. 2 Not Available [facility] ([facility]) [address] [facility] [place], [address], 04/23/2023 13:06:55 04/22/20 23 04/23/2023 COMP. METAB OLIC PANEL (14) chloride 103 mmol/ L 96-106 Not Available [facility] ([facility]) [address] [facility] [place], [address], 04/23/2023 13:06:55 04/22/20 23 04/23/2023 COMP. METAB OLIC PANEL (14) carbon dioxide, total 28 mmol/ L 20- Not Available [facility] ([facility]) [address] [place], [address], 04/23/2023 13:06:55 04/22/20 23 04/23/2023 COMP. METAB OLIC PANEL (14) calcium 9.4 mg/dL 8.7-10 .3 Not Available [facility] ([facility]) [address] [place], [address], 04/23/2023 13:06:55 04/22/20 23 04/23/2023 COMP. METAB OLIC PANEL (14) protein, total 7.4 g/dL 6.0-8. 5 Not Available [facility] ([facility]) [address] [place], [address], 04/23/2023 13:06:55 04/22/20 23 04/23/2023 COMP. METAB OLIC PANEL (14) albumin 3.9 g/dL 3.9-4. 9 Not Available [facility] ([facility]) [address] [place], [address], 04/23/2023 13:06:55 04/22/20 23 04/23/2023 COMP. METAB OLIC PANEL (14) globulin, total 3.5 g/dL 1.5-4. 5 Not Available [facility] ([facility]) [address] [place], [address], 04/23/2023 13:06:55 04/22/20 23 04/23/2023 COMP. METAB OLIC PANEL (14) A/G ratio 1.1 1.2-2. 2 below low normal Not Available [facility] ([facility]) [address] [place], [address], 04/23/2023 13:06:55 04/22/20 23 04/23/2023 COMP. METAB OLIC PANEL (14) bilirubin, total 0.6 mg/dL 0.0-1. 2 Not Available [facility] ([facility]) [address] [facility] [place], [address], 04/23/2023 13:06:55 04/22/20 23 04/23/2023 COMP. METAB OLIC PANEL (14) alkaline phosphatase 145 IU/L 44-121 above high normal Not Available [facility] ([facility]) [address] [facility] [place], [address], 04/23/2023 13:06:55 04/22/20 23 04/23/2023 COMP. METAB OLIC PANEL (14) AST (SGOT) 45 IU/L 0-40 above high normal Not Available [facility] ([facility]) [address] [facility], [place], [address], 04/23/2023 13:06:55 04/22/20 23 04/23/2023 COMP. METAB OLIC PANEL (14) ALT (SGPT) 33 IU/L 0-32 above high normal Not Available [facility] ([facility]) [address] [place], [address], 04/23/2023 13:06:55 04/22/20 23 04/23/2023 ALBUM IN/CR EAT RATIO , RANDO M UR creatinine, urine 75.9 mg/dL not estab. Not Available [facility] ([facility]) [address] [place], [address], 04/23/2023 13:06:56 04/22/20 23 04/23/2023 ALBUM IN/CR EAT RATIO , RANDO M UR albumin, urine 4.9 ug/mL not estab. Not Available [facility] ([facility]) [address] [place], [address], 04/23/2023 13:06:56 04/22/20 23 04/23/2023 ALBUM IN/CR EAT RATIO , WESTON Hernández UR alb/creat ratio 6 mg/g_ creat 0-29 Blanka l: 0 - 29 Moder ately incre ased: 30 - 300 Sever lemuel incre ased: >300 Not Available [facility] ([facility]) [address] [facility], [place], [address], 04/23/2023 13:06:56 04/22/20 23 04/23/2023 INSUL IN AND C-PEP TIDE, SERUM insulin 92.0 uIU/m L 2.6-24 .9 above high normal Not Available [facility] ([facility]) [address] [facility], [place], [address], 04/23/2023 13:06:56 04/22/20 23 04/23/2023 INSUL IN AND C-PEP TIDE, SERUM C-peptide, serum 11.8 NG/mL 1.1-4. 4 above high normal C-Pep tide refer ence inter rimma is for fasti ng patie nts. Not Available [facility] ([facility]) [address] [facility], [place], [address], 04/23/2023 13:06:56 04/22/2004/23/2023 HEMOG LOBIN A1C hemoglobin A1C 7.4 % 4.8-5. 6 above high normal Predi abete s: 5.7 - 6.4 Diabe reynold: >6.4 Glyce eev contr ol for adult s with diabe reynold: <7.0 Not Available [facility] ([facility]) [address] [facility], [place], [address], 04/23/2023 13:06:57 05/31/20 22 05/31/2022 XR, chest , 2 view No observ ation record ed. [email or web address] [address], [place], [address], 06/04/2022 17:15:22 04/22/20 23 12/26/2021 MAMMO , diagn ostic , digit al, unila teral No observ ation record ed. [facility] (Med Record) [address], [place], [address], 04/22/2023 14:40:09 Result Notes None recorded. Problems Name Problem SNOMED Code Status Onset Date Resolution Date Notes Provider Name and Address Organization Details Recorded Time Type 2 diabetes mellitus 91294828 Active 2021 Ramónanali kristen, [employer] [address], [place], [address], [place] - [facility] 2 10:51:37 Hypertensive disorder 74413571 Active 2021 Ramónanali kristen, [employer] [address], [place], [address], [place] [facility] 2 10:51:29 Chronic kidney disease stage 3 795965766 Active 2021 Ramónanali kristen, [employer] [address], [place], [address], [place] [facility] 2 10:51:25 Chronic back pain 501427995 Active 2021 Ramónanali kristen, [employer] [address], [place], [address], [place] [facility] 2 10:51:22 Heart disease 22645651 Active 2021 Ramóntiffanisavanah Rodriguezkristen, [employer] [address], [place], [address], [place] - [facility] 2 10:51:27 [...] [facility] 05/28/2022 10:30:19 Cardiac Cath completed Vero Dlegado [place] - [facility] 05/28/2022 10:30:26 Colonoscopy completed [...] SLIDING SCALE. MAX DAILY DOSE 80 UNITS active Not Available Not Available No t Available gabapentin 800 mg tablet 1 tablet three [...] blood by Pulse oximetry Respiratory rate Systolic And Diastolic Provider Name and Address Organization Details Last Updated DateTime 3 170.18 cm 32.3 kg/m2 20186.0 3 g 97.6 [degF] 90 /min 95 % 95 % 18 /min 142/80 mm[Hg] Vero Delgado [place] - [facility] 3 11:31:24 Date Recorded Body height Body mass index (BMI) Body weight Oxygen saturation Oxygen saturation in Arterial blood by Pulse oximetry Respiratory rate Heart rate Body temperature Systolic And Diastolic Provider Name and Address Organization Details Last Updated DateTime 4 170.18 cm 31.5 kg/m2 49287.7 7 g 98 % 98 % 18 /min 75 /min 98.1 [degF] 112/74 mm[Hg] Coretta Whitfield [place] - [facility] 4 15:15:06 Date Recorded Body height Body mass index (BMI) Body weight Body temperature Respiratory rate Oxygen saturation Oxygen saturation in Arterial blood by Pulse oximetry Heart rate Systolic And Diastolic Provider Name and Address Organization Details Last Updated DateTime 3 170.18 cm 32.4 kg/m2 11341.6 2 g 97.5 [degF] 18 /min 91 % 91 % 84 /min 136/78 mm[Hg] Vero Delgado [place] - [facility] 3 09:56:51 Date Recorded Body weight Body mass index (BMI) Body height Respiratory rate Oxygen saturation Oxygen saturation in Arterial blood by Pulse oximetry Heart rate Body temperature Systolic And Diastolic Provider Name and Address Organization Details Last Updated DateTime 2 81600.9 2 g 30.4 kg/m2 170.18 cm 18 /min 95 % 95 % 96 /min 97.5 [degF] 148/78 mm[Hg] Vero Delgado [place] - [facility] 2 10:14:48 Social History Question Answer Notes LastModified by Organizat ion Details LastModified Time Tobacco Smoking Status Never Smoker Vero Delgado null, [place] - [facility] 05/28/2022 10:27:58 Do You Have An Advance Directive? No Information not available 05/28/2022 Are You Blind Or Do You Have Difficulty Seeing? Yes Blurry, Hard To See Far Away, Has Eye Dr. Hidalgo 05-29-[address] Gallegos At [facility] Information not available 05/28/2022 What Is Your [...] Or The Highest Degree You Have Received? [id number] Information not available 05/28/2022 Have There Been Any Changes To Your Family Or Social Situation? No Information not available 05/28/2022 What Is The Fluoride Status Of Your Home? Unknown Information not available 05/28/2022 Do You Have A Medical Power Of Jet Worker? No Information not available 05/28/2022 What Was [...] Functional Status Question Answer Note LastModified by [employer] Details LastModified Time Do you use any [...] anxious, or unable to sleep at night)? [id number] Information not available 05/28/2022 Do you have [...] quadrivalent, preservative 8 completed Vero Stears null, [place] - [facility] 09/03/2022 11:27:52 zoster recombinant 1 completed Vero Stears null, [facility] 09/03/2022 11:27:52 zoster recombinant 0 completed Vero Stears [place] [facility] 09/03/2022 11:27:52 zoster recombinant 1 completed Vero Stears null, [facility] 09/03/2022 11:27:52 MMR 7 completed Vero Stears null, [facility] 09/03/2022 11:27:52 COVID-19, mRNA, LNP-S, PF, 100 mcg/0.5mL dose or 50 mcg/0.25mL dose 1 completed Vero Stears null, [facility] 09/03/2022 11:27:52 COVID-19, mRNA, LNP-S, PF, 100 mcg/0.5mL dose or 50 mcg/0.25mL dose 1 completed Vero Stears null, [facility] 09/03/2022 11:27:52 COVID-19, mRNA, LNP-S, PF, 100 mcg/0.5mL dose or 50 mcg/0.25mL dose 1 completed Vero Stears null, [place] - [facility] 09/03/2022 11:27:52 pneumococcal polysaccharide PPV23 0 completed Vero Stears [place] [facility] 09/03/2022 11:27:52 Tdap 1 completed Vero Stears [place] [facility] 09/03/2022 11:27:52 Pneumococcal conjugate PCV 13 6 completed Vero Ste[place] [facility] 09/03/2022 11:27:52 Influenza, split virus, trivalent, preservative 8 completed Vero Stears [place] [facility] 09/03/2022 11:27:52 Influenza, split virus, trivalent, preservative 7 completed Vero Stears [place] [facility] 09/03/2022 11:27:52 Influenza, split virus, trivalent, preservative 6 completed Vero Stears [place] [facility] 09/03/2022 11:27:52 Influenza, split virus, trivalent, PF 2 completed Vero Stears [place] [facility] 09/03/2022 11:27:52 Influenza, split virus, trivalent, PF 1 completed Vero Stears [place] [facility] 09/03/2022 11:27:52 Influenza, split virus, trivalent, PF 4 completed Vero Stears [place] [facility] 09/03/2022 11:27:52 Influenza, split virus, trivalent, PF 3 completed Vero Ste[place] [facility] 09/03/2022 11:27:52 Hep B, adult 2 completed Vero Stears [place] [facility] 09/03/2022 11:27:52 Hep A, adult 2 completed Vero Stears [place] [facility] 09/03/2022 11:27:52 Influenza, split virus, quadrivalent, PF 6 completed Vero Ste[place] [facility] 09/03/2022 11:27:52 Influenza, split virus, quadrivalent, PF 9 completed Vero [place] [facility] 09/03/2022 11:27:52 Influenza, split virus, quadrivalent, PF 5 completed Vero Stears [place] [facility] 09/03/2022 11:27:52 Influenza, split virus, quadrivalent, PF 0 completed Vero Ste[place] [facility] 09/03/2022 11:27:52 Hep A-Hep B 2 completed Vero Stears [place] [facility] 09/03/2022 11:27:52 Past Encounters Encounter ID Performer Location Encounter Start Date Encounter Closed Date Diagnosis/Indication Diagnosis SNOMED-CT Code Diagnosis ICD10 Code Diagnosis Note [id number] Mary Henry [address] [address] 05/28/2022 09:58:35 05/28/2022 11:06:38 Chronic back pain 942430082 G89.29 Type 2 jose betes mellitus 94779686 Z79.4 omnipod ordereddm packet given to pt Hypertensive disorder 38 214194 I10 Heart disease 41691303 I 51.9 Chronic ki dney disease stage 3 347247561 N18.30 Diabetic foot ulcer 3710 10046 E13.926 [id number] Mary Henry [address] [address] 09/03/2022 10:47:25 09/03/2022 12:32:31 Chronic kidney disease stage 3 178479541 N18.30 Hypertensive disorder 38 292303 I10 Type 2 jose betes mellitus 49373502 Z79.4 continue with omnipod training, labs to obtain baseline Chronic back pain 424732 002 G89.29 Heart disease 81782020 I 51.9 [id number] Mary Henry [address] [address] 04/22/2023 09:29:27 04/22/2023 11:55:30 Type 2 diabetes mellitus 16311913 Z79.4 will train on omnipod tomorrow at 1130 Body mass index 30+ - obesity 630353087 Z68.32 32.4 Obesity 514822558 E66.9 Chronic ki dney disease stage 3 685586883 N18.30 Heart disease 49040455 I 51.9 Hypertensive disorder 38 068647 I10 Uncontroll ed type 2 diabetes mellitus 815884711 E11.65 [id number] Mary Henry[address] [address] 03/26/2024 14:50:04 03/26/2024 15:51:17 Heart murmur 04099058 R01.1 echosee cardiology on at 11if any issues go to ed Type 2 jose ghada mellitus 30126860 Z79.4 obtain copy of labs from her other pcp.long discussion about med Hypertensive disorder 38 299301 I10 continue meds Heart disease 43509960 I 51.9 follow up with cardiology Chronic ki dney disease stage 3 675801145 N18.30 labs Health Concerns Section Related Observation LastModified by Organization Detai ls LastModified Time None Recorded Concern Status LastModified by Organization Details LastModified Time None Recorded Advance Directives Directive N: Payers Insurance Date Sequence Insurance Name Policy Number Policy Deng Covered Member ID Deng Member ID Guarantor Name 09/27/2024 1 [employer] [place] (MEDICARE REPLACEMENT/ ADVANTAGE - HMO) Mary Coronel [id number] Mary Coronel 09/27/2024 2 [employer] [place] (MEDICA[place] H[place]) Mary Wilde Homer [id number] Mary Coronel 09/27/2024 [employer] [place] [place] Mary Wilde Homer [id number] Mary Coronel 09/27/2024 MEDICAID-[facility] WRAP BILLING (MEDICAID) Mary Wilde Homer [id number] Mary Coronel 05/01/2023 1 [place] Mary Wilde Homer [id number] Mary Coronel Notes Date Note Type Note [...] foot on the 2nd toe Mary Henry, [employer] [address], [place], [address], [place] [facility] 05/28/2022 14:18:03 09/03/2022 text/html Mary is a 62 ye ar old female who presents to the office today for a 3 month follow up ondiabetes.pt states she has a appointment tomorrow for her training for omnipod insulin pump. pt states she has been watching her glucose and its been running 120-160 on most days Mary Henry APRN [address], [place], [address], [place] - [facility] 09/03/2022 13:33:38 04/22/2023 text/html Mary is a 63 ye ar old female who presents to the office today for a diabetic follow up. pt states her glucose has been high. pt states she takes 5 shots per day and wears a dexcom. she has a omnipod but has not done thr training to get it started Mary Henry APRN [address], [place], [address], [place] [facility] 05/01/2023 14:27:32 03/26/2024 text/html Diabetes [...] stomach issues each time she eats Mary Henry APRN [address], [place], [address], [place] [facility] 03/26/2024 16:02:49 OBGyn Episode No OBEpisode recorded.
--- OUTSIDE RECORDS SUMMARY | 2025-01-31 08:23 | XMS_ITS | Encounter Summary ---
Author Organization [employer] ([place], [place], [place], [place] Address [address] [place] [address] Care Team Providers Care Produce Sorter Name Role Phone [facility] Connection, Find-A-Doc Primary Care Provider Reason for Visit * Reason Onset Date Comments Appointment 12/06/2024 Encounter Details Date Type Department Care Team (Late st Contact Info) Description 12/06/2024 Telephone [facility] [place] [address] [place] [address] Mimi Moreno, RN Appointment Social History Tobacco Use Types Packs/Day Years Used Date Smoking Tobacco: Never Passive Smoke Exposure: Never Smokeless Tobacco: Never Alcohol Use Standard Drinks/Week Comments Never 0 (1 standard drink = 0.6 oz pur e alcohol) Utilities Answer Date Recorded In the past 12 months, has t he [employer], gas, oil, or water [employer] threatened to shut off services in your [...] Do you speak a language other than [facility]ali at [facility]? No 11/30/2024 Do you want [...] on filedocumented in this encounter Care Teams Produce Sorter Relationship Specialty Start Date End Date [facility] Connection, Find-A-Doc [facility] [place] [address] PCP - General 11/30/24 12/13/24 documented as of this encounter
--- OUTSIDE RECORDS SUMMARY | 2025-01-31 08:24 | XMS_ITS | Referral Summary ---
Author Organization [employer] ([place], [place], [place], [place]) Address [address] [place] [address] Care Team Providers Care Candy Packer Name Role Phone Provider, Not In System Primary Care Provider Un available Encounters Date Type Department Care Team Description 11/30/2024 1:43 AM EDT - 12/14/2024 5:30 PM EDT Hospital Encounter [facility] 5B Medical Telemetry Unit 1 [place] [address] Albert Garcia MD Shamsulddin, Haider, MD Zohary, Yasser, MD Majeed, Irfan, MD Edie, Joseph A, Huey Plasencia MD Melena (Primary Dx); Anasarca Discharge Disposition: Home or Self Care 12/06/2024 Telephone [facility] - [place] [address] [place] [address] Mimi Moreno RN Appointment 12/01/2024 8:55 AM EDT Anesthesia Event [facility] Endoscopy 1 [place] [address] Ashtyn Sanchez MD 12/01/2024 9:19 AM EDT - 12/01/2024 9:50 AM EDT Surgery [facility] Endoscopy 1 [place] [address] Scott Daley MD EGD, WITH [...] Do you speak a language other than [place] at [facility]? No 11/30/2024 Do you want help [...] 12/01/2024 8:09 AM EDT Plan of Treatment Not on file Procedures Procedure Name Priority Date/Time Associated Diagnosis [...] GLUCOSE POC Routine 12/13/2024 5:46 AM EDT [facility] CBC SCAN Routine 12/13/2024 3:15 [...] GLUCOSE POC Routine 12/12/2024 5:43 AM EDT [facility] CBC SCAN Routine 12/12/2024 3:47 [...] ANESTHESIA INTUBATION Routine 12/01/2024 9:01 AM EDT [place] EGD FLEXIBLE FOREIGN BODY REMOVAL 12/01/2024 8:55 [...] PARACENTESIS Routine 11/30/2024 4:17 PM EDT CYTOLOGY ([facility]) AP Routine 11/30/2024 4:03 PM EDT Melena PROTEIN, BODY FLUID Routine 11/30/2024 4 :03 PM EDT GLUCOSE, BODY FLUID Routine 11/30/2024 4 :03 PM EDT BODY FLUID/CSF- PATH REVIEW LAB ONLY ([facility]) Routine 11/30/2024 4:03 PM EDT Melena [facility] DIFFERENTIAL, BODY FLUID Routine 11/30/2024 [...] of63 resultswithin the time period is included. [facility] POC-GLUCOSE 203(H) 70 - 110 mg/dL 12/14/2024 3:42 PM EDT [facility] Comment: In the event of poor peripheral blood flow, venous or arterial blood should be used due to the potential of erroneous results. Notified Nurse [facility] [employer] [phone] 12/14/2024 3:42 PM EDT [facility] Blood WHOLE BLOOD / Unknown 12/14/2024 3:41 PM EDT 12/14/2024 3:42 PM EDT Narrative [facility] - 12/14/2024 3:42 PM EDT [employer] Education Teacher ID is - [id number] us David Coffman PA-C POINT OF CARE TEST ORDERABLES Final Result Performing Organization Address [facility] Co de Phone Number [facility] [address] [phone] * ECG 12 lead (12/14/2024 9:10 AM EDT) Only the most recent of13 resultswithin the time period is included. VENTRICULAR RATE EKG/MIN 89 BPM GE MUSE ATRIAL RATE (MCT) 89 BPM GE MUSE [place] Interval 146 ms GE MUSE QRS-INTERVAL (MSEC) 86 ms GE MUSE QT Interval 432 ms GE MUSE QTC Interval 525 ms GE MUSE P [place] 34 degrees GE MUSE R AXIS (MCT) -13 degrees GE MUSE T Wave [place] -2 degrees GE MUSE [place] Diagnosis Normal sinus rhythm Septal infarct (cited on or before 14-DEC-2024 ) Confirmed by DEYSI JON M.D. ([id number]) on 12/14/2024 5:07:26 PM GE MUSE 12/14/2024 9:10 AM EDT 12/14/2024 5:07 PM EDT Deysi Jon MD ECG ORDERABLES Final Result Performing Organization Address [facility] de Phone Number GE MUSE * (ABNORMAL) CBC with automated diff (12/14/2024 2:54 AM EDT) Only the most recent of7 resultswithin the time period is included. WBC 1.4(LL) 4.0 - 10.0 K/ L 12/14/2024 3:45 AM EDT [facility] RBC 2.45(L) 3.93 - 5.22 M/ L 12/14/2024 3:45 AM EDT [facility] Hemoglobin 7.6(L) 11.2 - 15.7 GM/DL 12/14/2024 3:45 AM EDT [facility] Hematocrit 24.1(L) 34.1 - 44.9 % 12/14/2024 3:45 AM EDT [facility] MCV 98(H) 79 - 95 fL 12/14/2024 3:45 AM EDT [facility] MCH 31.0 25.6 - 32.2 pg 12/14/2024 3:45 AM EDT [facility] MCHC 31.5(L) 32.2 - 35.5 GM/DL 12/14/2024 3:45 AM EDT [facility] RDW 16.3(H) 11.7 - 14.4 % 12/14/2024 3:45 AM EDT [facility] Platelets 51(L) 140 - 375 K/CU MM 12/14/2024 3:45 AM EDT [facility] MPV 12.3 9.4 - 12.3 fL 12/14/2024 3:45 AM EDT [facility] % Neutros 54 34 - 71 % 12/14/2024 3:45 AM EDT [facility] % Lymphs 32 19 - 52 % 12/14/2024 3:45 AM EDT [facility] % Monos 14(H) 5 - 13 % 12/14/2024 3:45 AM EDT [facility] % Eos 0(L) 1 - 6 % 12/14/2024 3:45 AM EDT [facility] % Baso 1 0 - 1 % 12/14/2024 3:45 AM EDT [facility] NRBC Absolute <0.01 0 - 0.012 K/ul 12/14/2024 3:45 AM EDT [facility] # Neutros 0.76(L) 1.56 - 6.13 K/ L 12/14/2024 3:45 AM EDT [facility] # Lymphs 0.45(L) 1.18 - 3.74 K/ L 12/14/2024 3:45 AM EDT [facility] # Monos 0.19(L) 0.24 - 0.86 K/ L 12/14/2024 3:45 AM EDT [facility] # Eos <0.03(L) 0.04 - 0.36 K/ L 12/14/2024 3:45 AM EDT [facility] # Baso <0.03 0.01 - 0.08 K/ L 12/14/2024 3:45 AM EDT [facility] Immature Granulocytes-Re lative 0.00(L) 0.01 - 0.43 % 12/14/2024 3:45 AM EDT [facility] # IG <0.03 0.00 - 0.03 K/uL 12/14/2024 3:45 AM EDT [facility] Blood Venipuncture / Unknown 12/14/2024 2:54 AM EDT 12/14/2024 3:27 AM EDT Narrative [facility] - 12/14/2024 3:45 AM EDT [...] PA-C LAB BLOOD ORDERABLES Final Re sult [facility] [address] [phone] * (ABNORMAL) Comprehensive metabolic panel (12/14/2024 2:54 AM EDT) Only the most recent of9 resultswithin the time period is included. Sodium 145 136 - 145 meq/L 12/14/2024 4:13 AM EDT [facility] Potassium 3.5 3.4 - 5.1 meq/L 12/14/2024 4:13 AM [facility] Chloride 109 98 - 112 meq/L 12/14/2024 4:13 AM [facility] CO2 27 22 - 29 meq/L 12/14/2024 4:13 AM [facility] Calcium 8.6 8.4 - 10.2 mg/dL 12/14/2024 4:13 AM [facility] Glucose 146(H) 82 - 115 mg/dL 12/14/2024 4:13 AM [facility] BUN 67.7(H) 9.8 - 20.1 mg/dL 12/14/2024 4:13 AM [facility] Creatinine 2.22(H) 0.57 - 1.11 mg/dL 12/14/2024 4:13 AM [facility] BUN/Creatinine 30(H) 8 - 20 12/14/2024 4:13 AM [facility] eGFR (mL/min/1.73m2) 25(L) >=60 mL/min/1. 73m2 12/14/2024 4:13 AM [facility] Albumin 3.2(L) 3.5 - 5.0 g/dL 12/14/2024 4:13 AM [facility] Alkaline Phosphatase 56 40 - 150 U/L 12/14/2024 4:13 AM [facility] ALT 21 <=34 U/L 12/14/2024 4:13 AM [facility] Comment: ALT2 reagent used for testing does not contain P5P supplementation and therefore may miss ALT elevations in patients with B6 deficiency. This population may be as high as 10% in the [place], with risk factors including malabsorption, drug interactions, and alcoholic hepatitis. AST 52(H) 11 - 34 U/L 12/14/2024 4:13 AM [facility] Comment: AST2 reagent used for testing does not contain P5P supplementation and therefore may miss AST elevations in patients with B6 deficiency. This population may be as high as 10% in the [place], with risk factors including malabsorption, drug interactions, and alcoholic hepatitis. Total Bilirubin 0.9 0.2 - 1.2 mg/dL 12/14/2024 4:13 AM EDT [facility] Protein, Total 5.9(L) 6.4 - 8.3 g/dL 12/14/2024 4:13 AM EDT [facility] Globulin 2.7 2.5 - 4.1 g/dL 12/14/2024 4:13 AM EDT [facility] Anion Gap 13(H) 4 - 12 12/14/2024 4:13 AM EDT [facility] A/G Ratio 1.2 0.7 - 1.9 12/14/2024 4:13 AM EDT [facility] Osmolality Calc 311.0 mOsm/kg 4:13 AM EDT [facility] Blood Venipuncture / Unknown 12/14/2024 2:54 AM EDT 12/14/2024 3:26 AM EDT us David Coffman PA-C LAB BLOOD ORDERABLES Final Re sult [facility] [address] [phone] * (ABNORMAL) CBC Scan (12/13/2024 3:15 AM EDT) Only the most recent of2 resultswithin the time period is included. Platelet Estimate Decreased (A) Adequate 12/13/2024 4:55 AM EDT [facility] RBC Morphology abnormal( A) Normal 12/13/2024 4:55 AM EDT [facility] Anisocytosis 1+ 12/13/2024 4:55 AM EDT [facility] Hypochromia 1+ 12/13/2024 4:55 AM EDT [facility] Ovalocytes 1+ 12/13/2024 4:55 AM EDT [facility] Blood Venipuncture / Unknown 12/13/2024 3:15 AM EDT 12/13/2024 3:27 AM EDT Venkatesh Stephen MD LAB BLOOD ORDERABLES Final Resul t [facility] [address] [phone] * (ABNORMAL) Hepatic function panel (12/13/2024 3:15 AM EDT) Protein, Total 5.7(L) 6.4 - 8.3 g/dL 12/13/2024 4:13 AM EDT [facility] Albumin 3.1(L) 3.5 - 5.0 g/dL 12/13/2024 4:13 AM EDT [facility] Total Bilirubin 0.8 0.2 - 1.2 mg/dL 12/13/2024 4:13 AM EDT [facility] Bilirubin, Direct 0.4 0.0 - 0.5 mg/dL 12/13/2024 4:13 AM EDT [facility] Alkaline Phosphatase 53 40 - 150 U/L 12/13/2024 4:13 AM EDT [facility] Globulin 2.6 2.5 - 4.1 g/dL 12/13/2024 4:13 AM EDT [facility] A/G Ratio 1.2 0.7 - 1.9 12/13/2024 4:13 AM EDT [facility] AST 42(H) 11 - 34 U/L 12/13/2024 4:13 AM EDT [facility] Comment: AST2 reagent used for testing does not contain P5P supplementation and therefore may miss AST elevations in patients with B6 deficiency. This population may be as high as 10% in the [place], with risk factors including malabsorption, drug interactions, and alcoholic hepatitis. ALT 16 <=34 U/L 12/13/2024 4:13 AM EDT [facility] Comment: ALT2 reagent used for testing does not contain P5P supplementation and therefore may miss ALT elevations in patients with B6 deficiency. This population may be as high as 10% in the [place], with risk factors including malabsorption, drug interactions, and alcoholic hepatitis. Blood Venipuncture / Unknown 12/13/2024 3:15 AM EDT 12/13/2024 3:39 AM EDT us Yousef Darrat MD LAB BLOOD ORDERABLES Final Resu lt [facility] [address] [phone] * (ABNORMAL) Basic Metabolic Panel (12/13/2024 3:15 AM EDT) Only the most recent of6 resultswithin the time period is included. Sodium 147(H) 136 - 145 meq/L 12/13/2024 4:13 AM EDT [facility] Potassium 3.5 3.4 - 5.1 meq/L 12/13/2024 4:13 AM EDT [facility] CO2 27 22 - 29 meq/L 12/13/2024 4:13 AM EDT [facility] Chloride 110 98 - 112 meq/L 12/13/2024 4:13 AM EDT [facility] Glucose 135(H) 82 - 115 mg/dL 12/13/2024 4:13 AM EDT [facility] BUN 71.9(H) 9.8 - 20.1 mg/dL 12/13/2024 4:13 AM EDT [facility] Creatinine 2.29(H) 0.57 - 1.11 mg/dL 12/13/2024 4:13 AM EDT [facility] BUN/Creatinine 31(H) 8 - 20 12/13/2024 4:13 AM EDT [facility] Calcium 8.5 8.4 - 10.2 mg/dL 12/13/2024 4:13 AM EDT [facility] Anion Gap 14(H) 4 - 12 12/13/2024 4:13 AM EDT [facility] eGFR (mL/min/1.73m2) 24(L) >=60 mL/min/1.7 3m2 12/13/2024 4:13 AM EDT [facility] Osmolality Calc 315.6 mOsm/kg 4:13 AM EDT [facility] Blood Venipuncture / Unknown 12/13/2024 3:15 AM EDT 12/13/2024 3:39 AM EDT us Venkatesh Stephen MD LAB BLOOD ORDERABLES Final Resul t [facility] 1 [place], [place] [address] [phone] * US paracentesis (12/10/2024 11:37 AM EDT) [...] Ascites. ATTENDING PHYSICIAN: Dr. Haseeb Gil PHYSICIAN PLANT PRODUCTION MANAGER: Sujit Blackman PA-C FINDINGS: After informed [...] Ascites. ATTENDING PHYSICIAN: Dr. Haseeb Gil PHYSICIAN PLANT PRODUCTION MANAGER: Sujit Blackman PA-C FINDINGS: After informed [...] Blackman PA-C. us Mary Carmen Mcfadden MD [facility] US ORDERABLES Final Result * ALT (SGPT) (12/10/2024 9:53 AM EDT) ALT 12 <=34 U/L 12/10/2024 11:02 AM EDT [facility] Comment: ALT2 reagent used for [...] MD LAB BLOOD ORDERABLES Final Resul t [facility] [address] [phone] * (ABNORMAL) AST (SGOT) (12/10/2024 9:53 AM EDT) AST 39(H) 11 - 34 U/L 12/10/2024 11:02 AM EDT [facility] Comment: AST2 reagent used for testing does not contain P5P supplementation and therefore may miss AST elevations in patients with B6 deficiency. This population may be as high as 10% in the [place], with risk factors including malabsorption, drug interactions, and alcoholic hepatitis. [employer] has become aware of sulfasalazine and sulfapyridine [...] Final Resul t Performing Organization Address [facility] Co de Phone Number [facility] [address] [phone] * Magnesium (12/10/2024 9:53 AM EDT) Only the most recent of9 resultswithin the time period is included. Magnesium 2.3 1.6 - 2.6 mg/dL 12/10/2024 11:02 AM EDT [facility] Blood Venipuncture / Unknown 12/10/2024 9:53 AM EDT 12/10/2024 10:39 AM EDT Deysi Jon MD LAB BLOOD ORDERABLES Final Resul t Performing Organization Address [facility] de Phone Number [facility] [address] [phone] * XR chest AP portable (12/10/2024 9:10 [...] 7.35 - 7.45 12/10/2024 6:51 AM EDT [facility] pCO2, Arterial 49(H) 35 - 45 mm Hg 12/10/2024 6:51 AM EDT [facility] pO2, Arterial 119(H) 80 - 100 mm Hg 12/10/2024 6:51 AM EDT [facility] HCO3, Arterial 24 20 - 26 mmol/L 12/10/2024 6:51 AM EDT [facility] Base Excess, Arterial -2.4(L) -2.0 - 2.0 mmol/L 12/10/2024 6:51 AM EDT [facility] O2 Sat, Arterial >99.2 95.0 - 100.0 % 12/10/2024 6:51 AM EDT [facility] Comment:notified at read-anny k verification CTO2 ARTERIAL 11.9 mmol/L 12/10/2024 6:51 AM EDT [facility] THB ARTERIAL 8.5(L) 12.0 - 18.0 g/dL 12/10/2024 6:51 AM EDT [facility] SJ COLLECTION SITE Left Radial 12/10/2024 6:51 AM EDT [facility] Arterial Puncture Yes 12/10/2024 6:51 AM EDT [facility] Blood Gas O2 Delivery Device Cannula 12/10/2024 6:51 AM EDT [facility] Oxygen Flow Rate 4 12/11/19 6:51 AM EDT [facility] Blood Gas PT Temperature C 37.0 12/10/2024 6:51 AM EDT [facility] Sen's Test Acceptable 12/10/2024 6:51 AM EDT [facility] ABG Number of Draw Attempts 1 12/10/2024 6:51 AM EDT [facility] FIO2 12/10/2024 6:51 AM EDT [facility] Blood Gas Temperature Corrected Results No No 12/10/2024 6:51 AM EDT [facility] Blood, Arterial Collection / Unknown 12/10/2024 6:42 AM EDT 12/10/2024 6:51 AM EDT us Blanka Alvarez MD LAB BLOOD ORDERABLES Final Re sult [facility] [address] [phone] * (ABNORMAL) CBC - Hemogram ([facility]) (12/09/2024 3:38 AM EDT) Only the most recent of8 resultswithin the time period is included. WBC 2.4(L) 4.0 - 10.0 K/ L 12/09/2024 3:59 AM EDT [facility] RBC 2.83(L) 3.93 - 5.22 M/ L 12/09/2024 3:59 AM EDT [facility] Hemoglobin 8.5(L) 11.2 - 15.7 GM/DL 12/09/2024 3:59 AM EDT [facility] Hematocrit 28.0(L) 34.1 - 44.9 % 12/09/2024 3:59 AM EDT [facility] MCV 99(H) 79 - 95 fL 12/09/2024 3:59 AM EDT [facility] MCH 30.0 25.6 - 32.2 pg 12/09/2024 3:59 AM EDT [facility] MCHC 30.4(L) 32.2 - 35.5 GM/DL 12/09/2024 3:59 AM EDT [facility] RDW 17.2(H) 11.7 - 14.4 % 12/09/2024 3:59 AM EDT [facility] Platelets 55(L) 140 - 375 K/CU MM 12/09/2024 3:59 AM EDT [facility] MPV 11.5 9.4 - 12.3 fL 12/09/2024 3:59 AM EDT [facility] Blood Venipuncture / Unknown 12/09/2024 3:38 AM EDT 12/09/2024 3:45 AM EDT us Mary Carmen Mcfadden MD LAB BLOOD ORDERABLES Final Resu lt [facility] [address] [phone] * Erythropoietin(SENDOUT) (12/07/2024 3:59 AM EDT) Erythropoietin 19 4 - 27 mU/mL 12/08/2024 2:30 PM EDT [facility] Comment: INTERPRETIVE INFORMATION: Erythropoietin Normal serum concentrations [...] may benefit from therapy with recombinant EPO ([facility] [id number]). Performed By: [email or web address] [address] [place] [address] Lottery Sales Clerk: Lalo Mortensen MD, PhD CLIA Number: [id number] Blood Venipuncture / Unknown 12/07/2024 3:59 AM EDT 12/07/2024 4:11 AM EDT us Ariel Mills MD LAB BLOOD ORDERABLES Final Res ult [facility] [address] [place] [address], [facility] [phone] * Ammonia (12/07/2024 3:59 AM EDT) Only the most recent of8 resultswithin the time period is included. Ammonia 44 18 - 72 mol/L 12/07/2024 4:37 AM EDT [facility] Blood Venipuncture / Unknown 12/07/2024 3:59 AM EDT 12/07/2024 4:22 AM EDT us Timothy Bai MD LAB BLOOD ORDERABLES Final Result [facility] [address] [place] [address], [facility] [phone] * (ABNORMAL) Ferritin (12/06/2024 3:13 AM EDT) Only the most recent of2 resultswithin the time period is included. Ferritin 256.82(H) 4.63 - 204.00 ng/mL 12/06/2024 8:25 AM EDT [facility] Blood Venipuncture / Unknown 12/06/2024 3:13 AM EDT 12/06/2024 3:50 AM EDT Ariel Mills MD LAB BLOOD ORDERABLES Final Res ult [facility] [address] [phone] * (ABNORMAL) Hemoglobin (12/05/2024 3:36 PM EDT) Only the most recent of11 resultswithin the time period is included. Pathologist [facility] Hemoglobin 8.1(L) 11.2 - 15.7 GM/DL 12/05/2024 3:57 PM EDT [facility] Blood Venipuncture / Unknown 12/05/2024 3:36 PM EDT 12/05/2024 3:47 PM EDT Timothy Bai MD LAB BLOOD ORDERABLES Final Result [facility] [address] [phone] * ANCA Vasculitis Profile(SENDOUT) (12/04/2024 8:15 AM EDT) Myeloperoxidase (MPO) Ab, IgG 0 0 - 19 AU/mL 12/07/2024 8:52 AM EDT [facility] Comment: INTERPRETIVE INFORMATION: Myeloperoxidase Abs, IgG 19 AU/mL or Less ......... Negative 20-25 AU/mL .............. Equivocal 26 AU/mL or Greater ...... Positive Approximately 90% of patients with a P-ANCA pattern by IFA have antibodies specific for MPO. Serine Proteinase 3 (PR3) Ab, IgG 0 0 - 19 AU/mL 12/07/2024 8:52 AM EDT [facility] Comment: INTERPRETIVE INFORMATION: Serine Proteinase 3, IgG 19 AU/mL or Less ........ Negative 20-25 AU/mL ............. Equivocal 26 AU/mL or Greater ..... Positive Approximately 85% of patients with a C-ANCA pattern by IFA have antibodies specific for PR3. ANCA IFA Titer <1:20 <1:20 12/07/2024 8:52 AM EDT COUNTS INCLUDE 234 BEDS AT THE [facility] ANCA IFA Pattern None Detected None Detected 12/07/2024 8:52 AM EDT [facility] [employer] Comment: INTERPRETIVE INFORMATION: ANCA IFA Pattern Neutrophil Cytoplasmic Antibodies (C-ANCA = granular cytoplasmic staining, P-ANCA = perinuclear staining) are found in the serum of over 90 percent of patients with certain necrotizing systemic vasculitides, and usually in less than 5 percent of patients with collagen vascular disease or arthritis. Performed By: [email or web address] [address] [place] [address] Lottery Sales Clerk: Lalo Mortensen MD, PhD CLIA Number: [id number] Blood Venipuncture / Unknown 12/04/2024 8:15 AM EDT 12/04/2024 8:32 AM EDT us Hema Cervantes MD LAB BLOOD ORDERABLES Final Re sult [facility] [address] [place] [address], [facility] [phone] * JEANA Reflexive Profile(SENDOUT) (12/04/2024 8:15 AM EDT) Anti-Nuclear Ab (JEANA), IgG by SHARON None Detected None Detected 12/06/2024 3:51 PM EDT [facility] Comment: No Anti-Nuclear Antibodies (JEANA) detected by SHARON. The Extractable Nuclear Antigen Antibodies (VENEER JOINTER HELPER, [place], SSA 52, SSA 60, Scleroderma, Lilia-1 and SSB) and Double Stranded DNA (dsDNA) Antibody, IgG will not be performed. If suspicion of connective tissue disease is strong, and JEANA is negative by SHARON, consider testing for JEANA by IFA ([id number]). INTERPRETIVE INFORMATION: Anti-Nuclear Antibodies (JEANA), IgG by SHARON Antinuclear Antibodies (JEANA), IgG by SHARON: JEANA specimens are screened using enzyme-linked immunosorbent assay (SHARON) methodology. All SHARON results reported as Detected are further tested by indirect fluorescent assay (IFA) using HEp-2 substrate with an IgG-specific conjugate. The JEANA SHARON screen is designed to detect antibodies against dsDNA, histones, SS-A (Ro), SS-B (La), Llanes, Llanes/VENEER JOINTER HELPER, Scl-70, Lilia-1, centromeric proteins, other antigens extracted from the HEp-2 cell nucleus. JEANA SHARON assays have been reported to have lower sensitivities than JEANA IFA for systemic autoimmune rheumatic diseases (SARD). Negative results do not necessarily rule out SARD. Performed By: [email or web address] [address] [place], [place] [id number] Lottery Sales Clerk: Lalo Mortensen MD, PhD CLIA Number: [id number] Blood Venipuncture / Unknown 12/04/2024 8:15 AM EDT 12/04/2024 8:32 AM EDT us Hema Cervantes MD LAB BLOOD ORDERABLES Final Re sult Performing Organization Address City/[facility]/ZIP Co de Phone Number [facility] [address] [place] [address], [facility] [phone] * Phosphorus (12/04/2024 3:34 AM EDT) Phosphorus 4.2 2.5 - 4.5 mg/dL 12/04/2024 4:04 AM EDT [facility] Blood Venipuncture / Unknown 12/04/2024 3:34 AM EDT 12/04/2024 3:41 AM EDT us Kirsty Tuttle APRN LAB BLOOD ORDERABLES Final R esult [facility] [address] [place] [address], [facility] [phone] * Creatine Kinase (CK) (12/03/2024 7:39 AM EDT) Only the most recent of2 resultswithin the time period is included. Total CK 55 29 - 168 U/L 12/03/2024 6:19 PM EDT [facility] Blood Venipuncture / Unknown 12/03/2024 7:39 AM EDT 12/03/2024 5:52 PM EDT us Hema Cervantes MD LAB BLOOD ORDERABLES Final Re sult [facility] [address] [phone] * Transfuse RBC (12/02/2024 5:03 PM EDT) [...] Pancytopenia. ATTENDING RADIOLOGIST: Dr. Haseeb Gil. PHYSICIAN PLANT PRODUCTION MANAGER: Sandra Ramsey PA-C PROCEDURE: After informed [...] Pancytopenia. ATTENDING RADIOLOGIST: Dr. Haseeb Gil. PHYSICIAN PLANT PRODUCTION MANAGER: Sandra Ramsey PA-C PROCEDURE: After informed [...] by Sandra Ramsey PA-C. Rommel Batista MD [facility] ORDERABLES Final Result * [facility] BONE MARROW SMEAR, ASPIRATION, AND STAIN (12/02/2024 12:06 PM EDT) AP RESULT See Note: [facility] Comment: [facility] [address] [place] [address] or [phone] Joe Carlos M.D., Home Health Cna PATIENT NAME LABORATORY NO. MARY OLIVA. [id number] [facility] AGE SEX SSN CLIENT REF # [id number] 1960 F [id number] 1 [place] [address] REQUESTING Aleksandr ATTENDING Aleksandr. COPY TOROMMEL PICHARDO DATE COLLECTED DATE RECEIVED DATE REPORTED 12/02/2024 12/02/2024 12/06/2024 ADDENDUM PRESENT ADDENDUM: Cytogenetics shows a normal female karyotype, 46,XX[20]. The original diagnosis remains unchanged. Verified by Heydi Mak M.D., MPH on 12/13/2024 Professional interpretation rendered by Heydi Mak M.D., MPH at [facility], [address] [place] [address]. DIAGNOSIS: PERIPHERAL SMEAR , BONE MARROW ASPIRATION [...] CD38, CD45, CD56, CD57, CD117, CD123, HLA-DR, Vails Gate, and Lambda. These tests use analyte specific [...] rendered by Heydi Mak M.D., MPH at [facility], [facility], [address] [place] [address]. GROSS DESCRIPTION: A. Received 1 peripheral blood [...] BY: Heydi Mak M.D., MPH CPT CODES: 62675, [id number], 90996, [id number], [id number], 56522, 93199, [id number] Bone Marrow BONE MARROW STRUCTURE / Unknown 12/02/2024 12:06 PM EDT Rommel Batista MD PATHOLOGY/CYTOLOGY ORDERABLES Edited Result - Final [facility] [address] * Prepare RBC: 1 Units (12/02/2024 9:36 AM EDT) Only the most recent of2 resultswithin the time period is included. Issue Date/Time [id number] [facility] BLOOD [facility] (CT) Product Identification Red Blood Cells [facility] (CT) Product Code [id number] [facility] (CT) Status Information Transfused [facility] (CT) Unit Number [id number] [facility] (CT) Blood Type 5100 [facility] (CT) Cross Match Results Compatible [facility] (CT) us Timothy Bai MD [id number] BANK PRO DUCT ORDERABLES Final Result Performing Organization Address City/[facility]/ZIP Co de Phone Number [facility] (CT) [address] [place] [address] * (ABNORMAL) Hemoglobin and hematocrit (12/02/2024 7:40 AM EDT) Hemoglobin 7.4(L) 11.2 - 15.7 GM/DL 12/02/2024 9:43 AM EDT [facility] Hematocrit 23.4(L) 34.1 - 44.9 % 12/02/2024 9:43 AM EDT [facility] Blood Venipuncture / Unknown 12/02/2024 7:40 AM EDT 12/02/2024 7:47 AM EDT us Timothy Bai MD LAB BLOOD ORDERABLES Final Result [facility] [address] [place] [address] * AN SINGLE LUMEN INTUBATION (12/01/2024 9:01 [...] ABO/Rh O Positive 12/01/2024 4:[address] [facility] BLOOD BANK (CT) Antibody Screen Negative 12/01/2024 4:[address] [facility] BLOOD [facility] (CT) HISTCHK HIST CHECK PERFORMED 12/01/2024 4:[address] [facility] BLOOD [facility] (CT) Blood Venipuncture / Unknown 12/01/2024 7:08 AM EDT 12/01/2024 7:15 AM EDT us Denilson Hodgson DO [facility] BLOOD BANK TEST ORDERABLES Final Result [facility] BLOOD [facility] (CT) [address] [facility] [address] [phone] * ABO/RH Confirmation/Retype (12/01/2024 4:06 AM EDT) RETYPE O Positive 12/01/2024 5:[address] [facility] BLOOD BANK (CT) Comment:[id number] Blood Venipuncture / Unknown 12/01/2024 4:06 AM EDT 12/01/2024 5:14 AM EDT us Timothy Bai MD [facility] BLOOD BANK TEST ORDERA BLES Final Result [facility] (CT) 1 [facility] [place] [address], [facility] [phone] * Ultrasound renal limited (11/30/2024 4:19 PM [...] and dictated by Ronnell Tom MD us [place] Hurtado MD IMG US ORDERABLES Final Result [...] dictated by SABINE Yang. us Destiney Llanes HOTEL OR MOTEL MANAGER IMG US ORDERABLES Final Res ult * DIFFERENTIAL, BODY FLUID (11/30/2024 4:03 PM EDT) Neutrophils Fluid 5 0 - 25 % 025 8:49 PM EDT [facility] Lymphocytes Fluid 46 % 025 8:49 PM EDT [facility] Unidentified Mononuclear Cells BF 49 0 - 0 % 11/30/2024 8:49 PM EDT [facility] Peritoneal Fluid BODY FLUID / Unknown 11/30/2024 4:03 PM EDT 11/30/2024 4:33 PM EDT us Huey Hurtado MD BODY FLUIDS AND STOOLS ORDERABLE S Final Result [facility] [address] [phone] * [facility] Non-[employer] Cytology (11/30/2024 4:03 PM EDT) AP RESULT See Note: PATHOLOGY [facility] CYTOLOGY LAB[facility]ORY Comment: [facility] [address] [place] [address] or [phone] Joe Carlos M.D., Home Health Cna PATIENT NAME LABORATORY NO. MARY OLIVA. [id number] AGE SEX SSN CLIENT REF # [facility] 64 1960 F [id number] 1 [facility] REQUESTING Aleksandr ATTENDING Aleksandr. [place] [address] HUEY HURTADO DATE COLLECTED DATE RECEIVED DATE REPORTED 11/30/2024 12/01/2024 12/02/2024 DIAGNOSIS: PERITONEAL FLUID: Negative for malignant cells. MICROSCOPIC DESCRIPTION: Scattered mesothelial cells and chronic inflammatory cells are present. Professional interpretation rendered by John Sanchez M.D., [place] at [facility], [facility], [address] [place] [address]. CLINICAL HISTORY: Melena Anasarca Acute renal failure SPECIMENS SUBMITTED: PERITONEAL FLUID GROSS SPECIMEN DESCRIPTION: 40 ccs of hazy, light yellow fluid, scant sediment, received in fixative ThinPrep slides prepared. Cell block has been examined. TOOL MACHINE SET UP OPERATOR: SVITLANA HERNANDEZ (ASCP) REVIEWED, DIAGNOSED AND ELECTRONICALLY SIGNED BY: John Sanchez M.D., Radu.Victorina.P. CPT CODES: 66089, 28525 Peritoneal Fluid BODY FLUID / Unknown 11/30/2024 4:03 PM EDT us Huey Hurtado MD PATHOLOGY/CYTOLOGY ORDERABLES Fi nal Result [facility] [address] [place] [address] * AFB Culture And Stain (11/30/2024 4:03 PM EDT) Result No Acid Fast Bacilli isolated at 6 weeks 01/11/2025 5:00 PM EDT [facility] AFB Smear No acid fast bacilli seen 01/11/2025 5:00 PM EDT [facility] Peritoneal Fluid BODY FLUID / Unknown 11/30/2024 4:03 PM EDT 11/30/2024 4:34 PM EDT Narrative [facility] - 01/11/2025 5:00 PM EDT Specimen Description: peritoneal fluid us Huey Hurtado MD MICROBIOLOGY - GENERAL ORDERABLE S Final Result [facility] [address] [phone] * Body Fluid/CSF - Path Review () (11/30/2024 4:03 PM EDT) SENT TO PATHOLOGY FOR REVIEW Yes 12/03/2024 6:54 AM EDT [facility] Scan Result Mesothelial cells. MD German 12/02/2024 12/03/2024 6:54 AM EDT [facility] Peritoneal Fluid BODY FLUID / Unknown 11/30/2024 4:03 PM EDT 11/30/2024 4:33 PM EDT us Huey Hurtado MD BODY FLUIDS AND STOOLS ORDERABLE S Final Result [facility] [address] [place] [address], [facility] [phone] * Fungus Culture W/ROSA MARIA Or Virgen Ink (11/30/2024 4:03 PM EDT) Result No fungus isolated at 6 weeks. 01/11/2025 5:00 PM EDT [facility] ROSA MARIA Prep No fungal elements seen 01/11/2025 5:00 PM EDT [facility] Peritoneal Fluid BODY FLUID / Unknown 11/30/2024 4:03 PM EDT 11/30/2024 4:34 PM EDT Narrative [facility] - 01/11/2025 5:00 PM EDT Specimen Description: peritoneal fluid us Huey Hurtado MD MICROBIOLOGY - GENERAL ORDERABLE S Final Result [facility] [address] [place] [address], [facility] [phone] * Glucose, body fluid (11/30/2024 4:03 PM EDT) Glucose, Body Fluid 107 See Comment mg/dL 12/01/2024 7:10 AM EDT [facility] BODY FLUID TYPE Peritoneal 12/01/2024 7:10 AM EDT [facility] Body Fluid PERITONEAL FLUID / Unknown 11/30/2024 4:03 PM EDT 12/01/2024 6:52 AM EDT [facility] - 12/01/2024 7:10 AM EDT This test has been modified from the rn lpn lvn's instructions and its performance characteristics were determined [...] ERABLES Final Result Performing Organization Address [facility]/ZIP Co de Phone Number [facility] [address] [phone] * Anaerobic Culture (11/30/2024 4:03 PM EDT) Result No Anaerobic growth 12/05/2024 6:34 AM EDT [facility] Peritoneal Fluid BODY FLUID / Unknown 11/30/2024 4:03 PM EDT 11/30/2024 4:34 PM EDT [facility] - 12/05/2024 6:34 AM EDT Specimen Description: peritoneal fluid Huey Hurtado MD MICROBIOLOGY - GENERAL ORDERABLE S Final Result Performing Organization Address [facility] Co de Phone Number [facility] [address] [phone] * Body Fluid Culture + Gram Stain (11/30/2024 4:03 PM EDT) Result No growth 12/03/2024 9:07 AM EDT [facility] Gram Stain Result No organisms seen 12/03/2024 9:07 AM EDT [facility] Gram Stain Result No cells seen 12/03/2024 9:07 AM EDT [facility] Peritoneal Fluid BODY FLUID / Unknown 11/30/2024 4:03 PM EDT 11/30/2024 4:34 PM EDT [facility] - 12/03/2024 9:07 AM EDT Specimen Description: peritoneal fluid us Huey Hurtado MD MICROBIOLOGY - GENERAL ORDERABLE S Final Result [facility] [address] [phone] * (ABNORMAL) Body fluid cell count with differential (11/30/2024 4:03 PM EDT) Appearance Cloudy(A) Clear 11/30/2024 8:49 PM EDT [facility] Color Yellow 11/30/2024 8:49 PM EDT [facility] BODY FLUID TYPE Peritoneal 11/30/2024 8:49 PM EDT [facility] Auto WBC/Nucleated Cells BF 85 /uL 11/30/2024 8:49 PM EDT [facility] Comment: Please refer to specific WBC/Nucleated Cell Count Body Fluid reference ranges below: For Pleural: 0-1000 Peritoneal: 0-1000 Pericardial:0-1000 Synovial: 0-200 Auto RBC BF <3,000 /uL 11/30/2024 8:49 PM EDT [facility] Comment: Please refer to specific RBC Cell Count Body Fluid reference ranges below: Pleural: 0-10,000 Peritoneal: 0-10,000 Pericardial:0-10,000 Synovial:0-30 Peritoneal Fluid BODY FLUID / Unknown 11/30/2024 4:03 PM EDT 11/30/2024 4:33 PM EDT Narrative [facility] - 11/30/2024 8:49 PM EDT There is normally no readily obtainable pleural, peritoneal and pericardial fluid, hence normal elements for these potential fluids are not defined. us Huey Hurtado MD BODY FLUIDS AND STOOLS ORDERABLE S Final Result [facility] [address] [place] [address], [facility] [phone] * Protein, body fluid (11/30/2024 4:03 PM EDT) Protein, Fluid 1.9 See Comment g/dL 12/01/2024 7:10 AM EDT [facility] BODY FLUID TYPE Peritoneal 12/01/2024 7:10 AM EDT [facility] Body Fluid PERITONEAL FLUID / Unknown 11/30/2024 4:03 PM EDT 12/01/2024 6:52 AM EDT Narrative [facility] - 12/01/2024 7:10 AM EDT This test has been modified from the rn lpn lvn's instructions and its performance characteristics were determined [...] ERABLES Final Result Performing Organization Address [facility] Co de Phone Number [facility] [address] [phone] * Lactate dehydrogenase (LDH), body fluid (11/30/2024 4:03 PM EDT) LDH, Fluid 71 See Comment U/L 11/30/2024 6:19 PM EDT [facility] BODY FLUID TYPE Peritoneal 11/30/2024 6:19 PM EDT [facility] Peritoneal Fluid BODY FLUID / Unknown 11/30/2024 4:03 PM EDT 11/30/2024 4:33 PM EDT [facility] - 11/30/2024 6:19 PM EDT This test has been modified from the rn lpn lvn's instructions and its performance characteristics were determined [...] S Final Result Performing Organization Address [facility] Co de Phone Number [facility] [address] [phone] * (ABNORMAL) Urinalysis, Reflex Microscopic and Culture If Indicated (11/30/2024 11:35 AM EDT) Color, UA Light Yellow 11/30/2024 12:06 PM EDT [facility] Clarity, UA Turbid(A) Clear 11/30/2024 12:06 PM EDT [facility] Specific [place], UA 1.011 1.005 - 1.030 11/30/2024 12:06 PM EDT [facility] pH, UA 5.0(L) 6.0 - 8.0 11/30/2024 12:06 PM EDT [facility] Leukocytes, UA 500 Félix/uL(A) Negative 11/30/2024 12:06 PM EDT [facility] Nitrite, UA Negative Negative 11/30/2024 12:06 PM EDT [facility] Protein, UA Negative Negative 11/30/2024 12:06 PM EDT [facility] Glucose, UA Normal Normal 11/30/2024 12:06 PM EDT [facility] Ketones, UA Negative Negative 11/30/2024 12:06 PM EDT [facility] Bilirubin, UA Negative Negative 11/30/2024 12:06 PM EDT [facility] Blood, UA Negative Negative 11/30/2024 12:06 PM EDT [facility] Urobilinogen, UA Normal Normal 11/30/2024 12:06 PM EDT [facility] Specimen Source Urine, Clean Catch 11/30/2024 12:06 PM EDT [facility] Urine URINE SPECIMEN COLLECTION, CLEAN CATCH / Unknown 11/30/2024 11:35 AM EDT 11/30/2024 11:41 AM EDT us Destiney Llanes HOTEL OR MOTEL MANAGER URINE ORDERABLES Final Resu lt [facility] [address] [place] [address] * (ABNORMAL) Urinalysis Microscopic Only (11/30/2024 11:35 AM EDT) WBC, UA 21-50(A) None Seen /HPF 11/30/2024 12:06 PM EDT [facility] RBC, UA 0-2(A) None Seen /HPF 11/30/2024 12:06 PM EDT [facility] Bacteria, UA 1+(A) None Seen, Trace 11/30/2024 12:06 PM EDT [facility] Mucus 1+(A) None Seen 11/30/2024 12:06 PM EDT [facility] SQUAMOUS EPITHELIAL 3-5(A) None Seen /HPF 11/30/2024 12:06 PM EDT [facility] HYALINE CASTS 21-50(A) None Seen /LPF 11/30/2024 12:06 PM EDT [facility] Urine URINE SPECIMEN COLLECTION, CLEAN CATCH / Unknown 11/30/2024 11:35 AM EDT 11/30/2024 11:41 AM EDT us Destiney Llanes APRN URINE ORDERABLES Final Resu lt [facility] [address] [phone] * Urea Nitrogen, random urine (11/30/2024 11:35 AM EDT) Urea Nitrogen, Ur 305 mg/dL 11/30/2024 12:36 PM EDT [facility] Comment:Reference Range not established Urine 11/30/2024 11:3 5 AM EDT 11/30/2024 12:15 PM EDT us Hill Boo MD URINE ORDERABLES Final Result [facility] [address] [phone] * Protein / creatinine ratio, urine (11/30/2024 11:35 AM EDT) Creatinine, Ur 62.00 47.00 - 110.00 mg/dL 11/30/2024 12:36 PM EDT [facility] Protein Creatinine Ratio 0.19 <=0.20 11/30/2024 12:36 PM EDT [facility] Protein, Urine 12 1 - 14 mg/dL 11/30/2024 12:36 PM EDT [facility] Urine 11/30/2024 11:3 5 AM EDT 11/30/2024 12:15 PM EDT us Hill Boo MD URINE ORDERABLES Final Result Performing Organization Address City/[facility]/ZIP Co de Phone Number [facility] [address] [phone] * Sodium, random urine (11/30/2024 11:35 AM EDT) Sodium Urine 83 See Comment meq/L 11/30/2024 12:36 PM EDT [facility] Comment:Reference Range not established Urine 11/30/2024 11:3 5 AM EDT 11/30/2024 12:15 PM EDT us Hill Boo MD URINE ORDERABLES Final Result Performing Organization Address [facility] Co de Phone Number [facility] [address] [phone] * Urine Culture (11/30/2024 11:35 AM EDT) Result Recollect Specimen - 3 or more organisms suggests contamination 12/01/2024 6:49 AM EDT [facility] Urine URINE SPECIMEN COLLECTION, CLEAN CATCH / Unknown 11/30/2024 11:35 AM EDT 11/30/2024 11:41 AM EDT us Destiney Llanes APRN MICROBIOLOGY - GENERAL ORDTammie HAMLIN Final Result Performing Organization Address [facility]/ZIP Co de Phone Number [facility] [address] [phone] * (ABNORMAL) Monoclonal Protein Study, Expanded Panel(SENDOUT) (11/30/2024 11:01 AM EDT) [facility] Total Protein, Serum 6.2(L) 6.3 - 8.2 g/dL 12/03/2024 12:57 PM EDT [facility] Albumin 2.71(L) 3.75 - 5.01 g/dL 12/03/2024 12:57 PM EDT [facility] Alpha 1 Globulin 0.34 0.19 - 0.46 g/dL 12/03/2024 12:57 PM EDT [facility] Alpha 2 Globulin 0.38(L) 0.48 - 1.05 g/dL 12/03/2024 12:57 PM T [facility] Beta Globulin 1.30(H) 0.48 - 1.10 g/dL 12/03/2024 12:57 PM T [facility] Gamma 1.47 0.62 - 1.51 g/dL 12/03/2024 12:57 PM T COUNTS INCLUDE 234 BEDS AT THE [facility] Immunofixation MAEGAN Done 12/03/2024 12:57 PM T COUNTS INCLUDE 234 BEDS AT THE [facility] Immunoglobulin G 1484 768 - 1632 mg/dL 12/03/2024 12:57 PM T COUNTS INCLUDE 234 BEDS AT THE [facility] Immunoglobulin A 686(H) 68 - 408 mg/dL 12/03/2024 12:57 PM T COUNTS INCLUDE 234 BEDS AT THE [facility] Immunoglobulin M 126 35 - 263 mg/dL 12/03/2024 12:57 PM T COUNTS INCLUDE 234 BEDS AT THE [facility] Monoclonal Protein Not Applicable <=0.00 g/dL 12/03/2024 12:57 PM T [facility] Vails Gate Qnt Free Light Chains 173.10(H) 3.30 - 19.40 mg/L 12/03/2024 12:57 PM T COUNTS INCLUDE 234 BEDS AT THE [facility] Comment: INTERPRETIVE INFORMATION: V[place] Gate Qnt Free Light Chains Undetected antigen excess is a rare event but cannot be excluded. Free light chain results should always be interpreted in conjunction with other clinical and laboratory findings. Lambda Qnt Free Light Chains 123.84(H) 5.71 - 26.30 mg/L 12/03/2024 12:57 PM T COUNTS INCLUDE 234 BEDS AT THE [facility] Comment: INTERPRETIVE INFORMATION: Lambda Qnt Free Light Chains Undetected antigen excess is a rare event but cannot be excluded. Free light chain results should always be interpreted in conjunction with other clinical and laboratory findings. [place]/Lambda Free Light Chain Ratio 1.40 0.26 - 1.65 12/03/2024 12:57 PM EDT [facility] SPEP/MAEGAN Interpretation See Note 12/03/2024 12:57 PM EDT [facility] Comment: Restricted band in the beta region [...] Serum See Note 12/03/2024 12:57 PM EDT [facility] Comment: Authorized individuals can access the [employer] Enhanced Report with an [employer] Connect account using the following link. Your local lab can assist you in obtaining the patient report if you don't have a Connect account. [email or web address] Performed By: [email or web address] [address] [id number] Lottery Sales Clerk: Lalo Mortensen MD, PhD CLIA Number: [id number] Blood Venipuncture / Unknown 11/30/2024 11:01 AM EDT 11/30/2024 12:17 PM EDT Hill Boo MD LAB BLOOD ORDERABLES Final Resu lt [facility] [address] [id number], [facility] [phone] * Alpha Fetoprotein Tumor Marker(SENDOUT) (11/30/2024 11:01 AM EDT) Alpha Fetoprotein Tumor Marker 2 0 - 9 ng/mL 12/01/2024 3:41 PM EDT [facility] Comment: INTERPRETIVE INFORMATION: Alpha Fetoprotein Tumor Marker [...] reference intervals for this test in the [employer] [facility] Test Directory ([facility]). Performed By: [email or web address] [address] [place] [address] Lottery Sales Clerk: Lalo Mortensen MD, PhD CLIA Number: [id number] Blood Venipuncture / Unknown 11/30/2024 11:01 AM EDT 11/30/2024 11:06 AM EDT Destiney Llanes APRN LAB BLOOD ORDERABLES Final Result Performing Organization Address City/[facility]/ZIP Co de Phone Number [employer] [address] [place] [address] * (ABNORMAL) Vitamin D, 25-Hydroxy (11/30/2024 8:20 AM EDT) Vitamin D 25-Hydroxy 22.0(L) 30 - 80 ng/mL 11/30/2024 9:48 AM EDT [facility] Blood Venipuncture / Unknown 11/30/2024 8:20 AM EDT 11/30/2024 9:08 AM EDT Timothy Bai MD LAB BLOOD ORDERABLES Final Result [facility] [address] [phone] * Hemoglobin A1c (11/30/2024 8:20 AM EDT) Hemoglobin A1C 4.9 4.0 - 5.6 % 11/30/2024 9:17 AM EDT [facility] Comment: Hemoglobin A1C levels are related to mean glucose during the preceding 2-3 months. Less than 7% demonstrates glycemic control in diabetic patients. Hemoglobin AlC % Suggested Diagnosis > or = 6.5 Diabetic 5.7 - 6.4 Prediabetic <5.7 Non-diabetic eAVG Glucose 93.93 70 - 126 mg/dL 11/30/2024 9:17 AM EDT [facility] Blood Venipuncture / Unknown 11/30/2024 8:20 AM EDT 11/30/2024 9:07 AM EDT us Huey Hurtado MD LAB BLOOD ORDERABLES Final Resul t [facility] [facility] [address] [phone] * ECHO COMPLETE (DOPPLER / COLOR) WO CONTRAST (11/30/2024 7:50 AM EDT) Anatomical Region Laterality Modality Heart Vascular Ultraso und 11/30/2024 7:25 AM EDT Narrative 11/30/2024 10:46 AM EDT TRANSTHORACIC ECHOCARDIOGRAPHY REPORT Demographics Patient Name: RIN JONES : 1960 Age: 64 year(s) Corporate ID Number: [id number] Gender Female House Calls Nurse: Giovanna Pranav Height: 67 inches [facility] Referring Physician: HUEY HURTADO Weight: 225 [...] 1.35 m/s E/A ratio: 0.97 m/s Volume [id number] LV length: 8.51 cm ml Volume .96 [...] Valve TR velocity: 2.51 m/s TR gradient: 25.15433 mmHg Estimated RAP: 3 mmHg RVSP: 28.12 [...] 1960 Age: 64 year(s) Corporate ID Number: [id number] Gender Female House Calls Nurse: Giovanna Rock Height: 67 inches [facility] Referring Physician: HUEY HURTADO Weight: 225 [...] 1.35 m/s E/A ratio: 0.97 m/s Volume [id number] LV length: 8.51 cm ml Volume swwvtozy07.96 ml LVOT diameter: 1.79 cm Normal sized [...] Valve TR velocity: 2.51 m/s TR gradient: 25.13141 mmHg Estimated RAP: 3 mmHg RVSP: 28.12 [...] in 5 days 12/05/2024 5:01 AM EDT [facility] Blood ENTIRE RIGHT UPPER ARM / Unknown Venipuncture / Unknown 11/30/2024 3:42 AM EDT 11/30/2024 4:09 AM EDT us Huey Hurtado MD MICROBIOLOGY - GENERAL ORDERABLE S Final Result [facility] [address] [phone] * Lactic Acid with reflex (11/30/2024 3:40 AM EDT) Lactic Acid Level (mmol/L) 0.9 0.5 - 2.2 mmol/L 11/30/2024 5:37 AM EDT [facility] Blood Venipuncture / Unknown 11/30/2024 3:40 AM EDT 11/30/2024 4:10 AM EDT us Huey Hurtado MD LAB BLOOD ORDERABLES Final Resul t Performing Organization Address [facility] Co de Phone Number [facility] [address] [phone] * Procalcitonin (11/30/2024 3:40 AM EDT) Procalcitonin 0.26 See Comment ng/mL 11/30/2024 5:07 AM EDT [facility] Comment: Sepsis comment <0.5 Antibiotics [...] Final Resul t Performing Organization Address [facility] Co de Phone Number [facility] [address] [phone] * (ABNORMAL) Iron and TIBC (11/30/2024 3:40 AM EDT) Iron 63 50 - 170 ug/dL 11/30/2024 6:13 PM EDT [facility] TIBC 183(L) 250 - 435 ug/dL 11/30/2024 6:13 PM EDT [facility] % Saturation 34 % 11/30/2024 6:13 PM EDT [facility] UIBC 120 11/30/2024 6:13 PM EDT [facility] Blood Venipuncture / Unknown 11/30/2024 3:40 AM EDT 11/30/2024 4:09 AM EDT us Rommel Batista MD LAB BLOOD ORDERABLES Final Res ult Performing Organization Address [facility]/ZIP Co de Phone Number [facility] [address] [phone] * aPTT (11/30/2024 3:40 AM EDT) aPTT 27.7 22.0 - 32.0 seconds 11/30/2024 4:32 AM EDT [facility] Blood Venipuncture / Unknown 11/30/2024 3:40 AM EDT 11/30/2024 4:10 AM EDT us Huey Hurtado MD LAB BLOOD ORDERABLES Final Resul t Performing Organization Address [facility] Co de Phone Number [facility] [address] [place] [address] * (ABNORMAL) Prothrombin time/INR (11/30/2024 3:40 AM EDT) Protime 12.9(H) 9.0 - 12.0 seconds 11/30/2024 4:32 AM EDT [facility] INR 1.17(H) 0.80 - 1.10 11/30/2024 4:32 AM EDT [facility] Comment: Recommended therapeutic ranges using [...] Final Resul t Performing Organization Address [facility] Co de Phone Number [facility] [address] [phone] * (ABNORMAL) Uric acid (11/30/2024 3:40 AM EDT) Uric Acid 11.2(H) 2.5 - 6.2 mg/dL 11/30/2024 12:18 PM EDT [facility] Blood Venipuncture / Unknown 11/30/2024 3:40 AM EDT 11/30/2024 4:09 AM EDT us Hill Boo MD LAB BLOOD ORDERABLES Final Resu lt Performing Organization Address [facility] Co ia Phone Number [facility] [address] [phone] * (ABNORMAL) Lactate dehydrogenase (LDH) (11/30/2024 3:40 AM EDT) LDH 261(H) 125 - 220 U/L 11/30/2024 12:18 PM EDT [facility] Blood Venipuncture / Unknown 11/30/2024 3:40 AM EDT 11/30/2024 4:09 AM EDT us Hill Boo MD LAB BLOOD ORDERABLES Final Resu lt Performing Organization Address [facility] Co de Phone Number [facility] [address] [phone] * Iron, serum (11/30/2024 3:40 AM EDT) Iron 64 50 - 170 ug/dL 11/30/2024 8:10 AM EDT [facility] Blood Venipuncture / Unknown 11/30/2024 3:40 AM EDT 11/30/2024 4:09 AM EDT us Timothy Bai MD LAB BLOOD ORDERABLES Final Result [facility] [address] [phone] * Folate, Serum (11/30/2024 3:40 AM EDT) Folate 7.0 7.0 - 31.4 ng/mL 11/30/2024 6:08 PM EDT [facility] Blood Venipuncture / Unknown 11/30/2024 3:40 AM EDT 11/30/2024 4:09 AM EDT us Rommel Batista MD LAB BLOOD ORDERABLES Final Res ult Performing Organization Address [facility]/ZIP Co de Phone Number [facility] [address] [phone] * Vitamin B12 (11/30/2024 3:40 AM EDT) Vitamin B12 678 213 - 816 pg/mL 11/30/2024 8:10 AM EDT [facility] Blood Venipuncture / Unknown 11/30/2024 3:40 AM EDT 11/30/2024 4:09 AM EDT us Timothy Bai MD LAB BLOOD ORDERABLES Final Result Performing Organization Address City/[facility]/ZIP Co de Phone Number [facility] [address] [phone] * EKG-SCANNED (11/30/2024) Only the most recent of3 resultswithin the time period is included. Narrative 11/30/2024 Ordered by an unspecified provider. us Default Scanning Provider SCAN ORDERS Final Result from Last 3 Months Insurance [facility] [place] [address] [facility] Advance Directives For more information, please contact: [phone] * Full Code (Latest Code Status on File) Date Activated Date Inactivated Comments 11/30/2024 2:06 AM 12/14/2024 6:30 PM Care Teams Candy Packer Relationship Specialty Start Date End Date Provider, Not In System [place] PCP - General 12/14/24
--- OUTSIDE RECORDS SUMMARY | 2025-01-31 08:26 | XMS_ITS | Encounter Summary ---
Author Organization Healthcare Address [address] [place] [address] Care Team Providers Care Medical Or Surgical Instrument Maker Name Role Phone Larry Bedolla MD Primary Care Provider + [phone] Sary Brannon APRN Unavailable [phone] Monika Hernandez APRN Primary Care Provider [phone] Encounter Details Date Type Department Care Team (Late st Contact Info) Description 01/21/2022 Community [facility] [address] [place] [address] Larry Bedolla MD [address] [place], [place] [id number] Central stenosis of spinal canal (Primary Dx) [...] Description 02/22/2025 7:45 AM EDT Clinical Support [facility] [address] [place] [address] 02/22/2025 9:20 AM EDT Office Visit [facility] [place] [address] [place] [address] Ollie Calvo MD [address] [place] [address] 02/22/2025 10:00 AM EDT Office Visit [facility] [place] [address] [place] [address] Surgeon, 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 documented as of this encounter Visit Diagnoses Diagnosis Central stenosis of spinal canal- Primary documented in this encounter Additional Health Concerns Assessment Noted Time A fall risk assessment has been complete d for the patient 01/02/2022 1:17 PM EDT documented as of this encounter Care Teams Medical Or Surgical Instrument Maker Relationship Specialty Start Date End Date Larry Bedolla MD [address] [place] [address] PCP - General 12/08/20 01/18/25 Monika Hernandez APRN [address] [place] [address] PCP - General 01/19/25 Sary Brannon APRN 12[address] [facility] [place] [address] [place] [address] Referring Physician Gastroenterology 01/07/25 documented as of this encounter
--- OUTSIDE RECORDS SUMMARY | 2025-01-31 08:26 | XMS_ITS | Encounter Summary ---
Author Organization [facility] Address [address] [place] [address] Care Team Providers Care Head Refrigeration Engineer Name Role Phone Larry Bedolla MD Primary Care Provider + [phone] Sary Brannon WARP COILER Unavailable [phone] Reason for Referral * Transplant (Routine) - Authorized Specialty Diagnoses / Procedures Referred By Mayela may Referred To Contact Transplant Diagnoses End-stage liver disease (CMS/HCC) Sary Brannon APRN 1210 [facility] [address] [place] [address] Phone: tel: fax: [facility] [address] [address] Phone: tel: fax: Referral ID Status Reason Start Date Expiration Date Visits Requested Visits Authorized [id number] Authorized Specialty Services Required 01/07/2025 07/09/2026 999 999 Reason for Visit * Reason Comments Referral - Liver Txp Encounter Details Date Type Department Care Team (Late Contact Info) Description 01/07/2025 Telephone [facility] [place] [phone] [address] Kasey Dye [place] [phone] Referral - Liver Txp Social History Tobacco [...] Support [facility] [address] [place] [address] 02/22/2025 9:20 AM EDT Office Visit [facility] [place] [address] [place] [address] Ollie Calvo MD [address] [place] [address] 02/22/2025 10:00 AM EDT Office Visit [facility] [place] [address] [place] [address] Surgeon, 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 Scheduled Referrals Name Type [...] Venous blood specimen / Unknown 01/03/2025 Result [facility] Provider LAB BLOOD ORDERABLES Afsaneh l Result * Creatinine, Plasma (01/03/2025) External Creatinine Blood 3.00 mg/dL Blood Venous blood specimen / Unknown 01/03/2025 Result [facility] Provider LAB BLOOD ORDERABLES Afsaneh l Result * Albumin, Plasma (01/03/2025) External Albumin 3.6 g/dL Blood Venous blood specimen / Unknown 01/03/2025 Result [facility] Provider LAB BLOOD ORDERABLES Afsaneh l Result * Albumin, Plasma (12/14/2024) External Albumin 3.2 g/dL Blood Venous blood specimen / Unknown 12/14/2024 Result [facility] Provider LAB BLOOD ORDERABLES Afsaneh l Result * Total Bilirubin, Plasma (12/14/2024) External Bilirubin Total 0.9 mg/dL Blood Venous blood specimen / Unknown 12/14/2024 Result [facility] Provider MD LAB BLOOD ORDERABLES Afsaneh l Result * Creatinine, Plasma (12/14/2024) External Creatinine Blood 2.22 mg/dL Blood Venous blood specimen / Unknown 12/14/2024 Result [facility] Provider MD LAB BLOOD ORDERABLES Afsaneh l Result * Sodium, Plasma (12/14/2024) External Sodium 145 mmol/L Blood Venous blood specimen / Unknown 12/14/2024 Result [facility] MD LAB BLOOD ORDERABLES Afsaneh l Result * Prothrombin Time/INR (11/30/2024) External Prothrombin Time (PT) 12.9 External INR - Internormal Ratio 1.17 Blood Venous blood specimen / Unknown 11/30/2024 Result [facility] MD LAB BLOOD ORDERABLES Afsaneh l Result [...] documented as of this encounter Care Teams Head Refrigeration Engineer Relationship Specialty Start Date End Date Larry Bedolla MD [address] [facility] [place] [address] PCP - General 12/08/20 01/18/25 Sary Brannon APRN [address] [place] [address] [place] [address] Referring Physician Gastroenterology 01/07/25 documented as of this encounter
--- OUTSIDE RECORDS SUMMARY | 2025-01-31 08:26 | XMS_ITS | Encounter Summary ---
Author Organization Healthcare Address [address] [place] [address] Care Team Providers Care Licensed Bondsman Name Role Phone Larry Bedolla MD Primary Care Provider + [phone] Sary Brannon POOL INSTALLER Unavailable [phone] Monika Hernandez APRN Primary Care Provider [phone] Reason for Visit * Reason Comments Med Refill Encounter Details Date Type Department Care Team (Late st Contact Info) Description 04/12/2021 Refill [facility] [place] [facility] Endocrinology [address] [place] [address] Lina Lowe, POOL INSTALLER [address] [facility] [address] [place] [address] Social History Tobacco Use Types [...] Description 02/22/2025 7:45 AM EDT Clinical Support [facility] [address] [facility] [address] [place] [address] 02/22/2025 9:20 AM EDT Office Visit [facility] [address] [place] [address] Ollie Calvo MD [address] [facility] [address] [place] [address] 02/22/2025 10:00 AM EDT Office Visit [facility] [address] [place] [address] Surgeon, 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 documented as of this encounter Visit Diagnoses Not on filedocumented in this encounter Care Teams Licensed Bondsman Relationship Specialty Start Date End Date Larry Bedolla MD [address] [place] [address] PCP - General 12/08/20 01/18/25 Monika Hernandez APRN [address] [place] [address] PCP - General 01/19/25 Sary Brannon APRN [address] [place] [address] [address] [place] [address] Referring Physician Gastroenterology 01/07/25 documented as of this encounter
--- OUTSIDE RECORDS SUMMARY | 2025-01-31 08:26 | XMS_ITS | Encounter Summary ---
Author Organization [facility] Address [address] [place] [address] Care Team Providers Care Tool Crib Attendant Name Role Phone ClovisSary ÁNGEL Unavailable [phone] Monika Hernandez APRN Primary Care Provider [phone] Reason for Referral * Consultation (Routine) - Pending Review Specialty Diagnoses / Procedures Referred By Mayela may Referred To Contact Transplant Diagnoses End-stage liver disease (CMS/HCC) Edil Kiran MD [address] [address] Phone: tel: fax: [facility] [place] [phone] [address] Phone: tel: fax: Referral ID Status Reason Start Date Expiration Date Visits Requested Visits Authorized [id number] Pending Review Specialty Services Required 01/19/2025 07/21/2026 1 1 Reason for Visit * Reason Comments Appointment scheduling Encounter Details Date Type Department Care Team ([facility] Contact Info) Description 01/19/2025 Telephone [facility] [place] [address] [address] [place] [address] Appointment (scheduling) Social History Tobacco Use Types [...] Description 02/22/2025 7:45 AM EDT Clinical Support [facility] [address] [place] [address] 02/22/2025 9:20 AM EDT Office Visit [facility] [address] [place] [address] Ollie Calvo MD [address] [place] [address] 02/22/2025 10:00 AM EDT Office Visit [facility] [address] [place] [address] Surgeon, 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 Scheduled Orders Name Type [...] documented as of this encounter Care Teams Tool Crib Attendant Relationship Specialty Start Date End Date Monika Hernandez APRN [address] [facility] [address] PCP - General 01/19/25 Sary Brannon APRN 1210 [facility] [address] [place] [id number] Referring Physician Gastroenterology 01/07/25 documented as of this encounter
--- OUTSIDE RECORDS SUMMARY | 2025-01-31 08:26 | XMS_ITS | Clinical Summary ---
Author Organization [facility] ([place], [place], [place], [place]) Address [address] [place] [address] Care Team Providers Care Osha Inspector Name Role Phone Provider, Not In System [...] Type Department Care Team Description 12/06/2024 Telephone [facility] - [place] [address] [place] [address] Mimi Moreno RN Appointment 12/01/2024 9:19 AM EDT - 12/01/2024 9:50 AM EDT Surgery [facility] Endoscopy [address] [place] [address] Scott Daley MD EGD, WITH FOREIGN BODY REMOVAL 12/01/2024 8:55 AM EDT Anesthesia Event [facility] Endoscopy [address] [place] [address] Ashtyn Sanchez MD 11/30/2024 1:43 AM EDT - 12/14/2024 5:30 PM EDT Hospital Encounter [address] Medical Telemetry Unit 1 [place] [address] Albert Garcia MD Shamsulddin, Haider, [...] living situation today? I have a [facility] place to live 11/30/2024 Think about the [...] Do you speak a language other than [place] at [facility]? No 11/30/2024 Do you want [...] 12/01/2024 8:09 AM EDT Plan of Treatment Health Maintenance Due Date Last Done Comments CT Colonography 1962 Colonoscopy 1962 Colorectal Cancer Screening 1962 FOBT/FIT 1962 Fit-DNA (Cologuard) 1962 Sigmoidoscopy 1962 Diabetic Eye Exam 1972 Depression Screening (12+) 1974 Tobacco Cessation Counseling and Screening (12+) 1974 HIV Screening 1977 Hepatitis C Screening 1980 Pap Smear 1983 Breast Cancer Screening 2002 Lipid Panel 2007 Respiratory Syncytial Virus (RSV) Adult or (1 - Risk 60-74 years 1-dose series) 2022 COVID-19 VACCINE ( season) 2024 05/13/2021, 04/15/2021, 11/08/2020 Medicare IPPE (Welcome to [facility]) [id number] 07/28/2024 Influenza Vaccine (#1) 2025 Pneumococcal 50+ years (3 of 3 - PCV20 or PCV21) 05/15/2025 05/15/2020, 07/09/2016 Diabetic Kidney Health Evalu ation (KED) 11/30/2025 11/30/2024 DTAP/TDAP/TD VACCINES (2 - T d or Tdap) 02/25/2031 02/25/2021 Shingles Vaccine (Zoster) Completed 2020, 08/15/2020, 05/31/2020 [...] POC Routine 12/13/2024 5:46 AM EDT [facility] CBC SCAN Routine 12/13/2024 3:15 [...] POC Routine 12/12/2024 5:43 AM EDT [facility] CBC SCAN Routine 12/12/2024 3:47 [...] PM EDT BLOOD GAS, ARTERIAL STAT 12/07/2024 2:02 PM EDT NOVA GLUCOSE POC Routine 12/07/2024 [...] ANESTHESIA INTUBATION Routine 12/01/2024 9:01 AM EDT SD EGD FLEXIBLE FOREIGN BODY REMOVAL 12/01/2024 8:55 [...] of63 resultswithin the time period is included. POC-GLUCOSE 203(H) 70 - 110 mg/dL 12/14/2024 3:42 PM EDT [facility] Comment: In the event of poor peripheral blood flow, venous or arterial blood should be used due to the potential of erroneous results. Notified Nurse RBV Credit Risk Management Director [phone] 12/14/2024 3:42 PM EDT [facility] Blood WHOLE BLOOD / Unknown 12/14/2024 3:41 PM EDT 12/14/2024 3:42 PM EDT Narrative [facility] - 12/14/2024 3:42 PM EDT Credit Risk Management Director ID is - [id number] us David Coffman PA-C POINT OF CARE TEST ORDERABLES Final Result Performing Organization Address City/[facility]/ZIP Co de Phone Number [facility] [address] [phone] * ECG 12 lead (12/14/2024 9:10 AM EDT) Only the most recent of13 resultswithin the time period is included. VENTRICULAR RATE EKG/MIN 89 BPM GE MUSE ATRIAL RATE (MCT) 89 BPM GE MUSE SD Interval 146 ms GE MUSE QRS-INTERVAL (MSEC) 86 ms GE MUSE QT Interval 432 ms GE MUSE QTC Interval 525 ms GE MUSE [place] 34 degrees GE MUSE R AXIS (MCT) -13 degrees GE MUSE T [place] -2 degrees GE MUSE [place] Diagnosis Normal sinus rhythm Septal infarct (cited on or before 14-DEC-2024 ) Confirmed by DEYSI JON M.D. ([id number]) on 12/14/2024 5:07:26 PM GE MUSE 12/14/2024 9:10 AM EDT 12/14/2024 5:07 PM EDT Deysi Jon MD ECG ORDERABLES Final Result Performing Organization Address [facility] de Phone Number GE MUSE * (ABNORMAL) CBC with automated diff (12/14/2024 2:54 AM EDT) Only the most recent of7 resultswithin the time period is included. WBC 1.4(LL) 4.0 - 10.0 K/ L 12/14/2024 3:45 AM EDT [facility] RBC 2.45(L) 3.93 - 5.22 M/ L 12/14/2024 3:45 AM EDT [facility] Hemoglobin 7.6(L) 11.2 - 15.7 GM/DL 12/14/2024 3:45 AM EDT [facility] Hematocrit 24.1(L) 34.1 - 44.9 % 12/14/2024 3:45 AM EDT [facility] MCV 98(H) 79 - 95 fL 12/14/2024 3:45 AM EDT [facility] MCH 31.0 25.6 - 32.2 pg 12/14/2024 3:45 AM EDT [facility] MCHC 31.5(L) 32.2 - 35.5 GM/DL 12/14/2024 3:45 AM EDT [facility] RDW 16.3(H) 11.7 - 14.4 % 12/14/2024 3:45 AM EDT [facility] Platelets 51(L) 140 - 375 K/CU MM 12/14/2024 3:45 AM EDT [facility] MPV 12.3 9.4 - 12.3 fL 12/14/2024 3:45 AM EDT [facility] % Neutros 54 34 - 71 % 12/14/2024 3:45 AM EDT [facility] % Lymphs 32 19 - 52 % 12/14/2024 3:45 AM EDT [facility] % Monos 14(H) 5 - 13 % 12/14/2024 3:45 AM EDT [facility] % Eos 0(L) 1 - 6 % 12/14/2024 3:45 AM EDT [facility] % Baso 1 0 - 1 % 12/14/2024 3:45 AM EDT [facility] NRBC Absolute <0.01 0 - 0.012 K/ul 12/14/2024 3:45 AM EDT [facility] # Neutros 0.76(L) 1.56 - 6.13 K/ L 12/14/2024 3:45 AM EDT [facility] # Lymphs 0.45(L) 1.18 - 3.74 K/ L 12/14/2024 3:45 AM EDT [facility] # Monos 0.19(L) 0.24 - 0.86 K/ L 12/14/2024 3:45 AM EDT [facility] # Eos <0.03(L) 0.04 - 0.36 K/ L 12/14/2024 3:45 AM EDT [facility] # Baso <0.03 0.01 - 0.08 K/ L 12/14/2024 3:45 AM EDT [facility] Immature Granulocytes-Re lative 0.00(L) 0.01 - 0.43 % 12/14/2024 3:45 AM EDT [facility] # IG <0.03 0.00 - 0.03 K/uL 12/14/2024 3:45 AM EDT [facility] Blood Venipuncture / Unknown 12/14/2024 2:54 AM EDT 12/14/2024 3:27 AM EDT Narrative [facility] - 12/14/2024 3:45 AM [...] PA-C LAB BLOOD ORDERABLES Final Re sult [facility] [address] [phone] * (ABNORMAL) Comprehensive metabolic panel (12/14/2024 2:54 AM EDT) Only the most recent of9 resultswithin the time period is included. Sodium 145 136 - 145 meq/L 12/14/2024 4:13 AM EDT [facility] Potassium 3.5 3.4 - 5.1 meq/L 12/14/2024 4:13 AM EDT [facility] Chloride 109 98 - 112 meq/L 12/14/2024 4:13 AM EDT [facility] CO2 27 22 - 29 meq/L 12/14/2024 4:13 AM EDT [facility] Calcium 8.6 8.4 - 10.2 mg/dL 12/14/2024 4:13 AM EDT [facility] Glucose 146(H) 82 - 115 mg/dL 12/14/2024 4:13 AM EDT [facility] BUN 67.7(H) 9.8 - 20.1 mg/dL 12/14/2024 4:13 AM EDT [facility] Creatinine 2.22(H) 0.57 [...] 0.2 - 1.2 mg/dL 12/14/2024 4:13 AM [facility] Protein, Total 5.9(L) 6.4 - 8.3 g/dL 12/14/2024 4:13 AM [facility] Globulin 2.7 2.5 - 4.1 g/dL 12/14/2024 4:13 AM [facility] Anion Gap 13(H) 4 - 12 12/14/2024 4:13 AM [facility] A/G Ratio 1.2 0.7 - 1.9 12/14/2024 4:13 AM [facility] Osmolality Calc 311.0 mOsm/kg 4:13 AM [facility] Blood Venipuncture / Unknown 12/14/2024 2:54 AM EDT 12/14/2024 3:26 AM EDT us David Coffman PA-C LAB BLOOD ORDERABLES Final Re sult Performing Organization Address [facility] Co de Phone Number [facility] [address] [phone] * (ABNORMAL) CBC Scan (12/13/2024 3:15 AM EDT) Only the most recent of2 resultswithin the time period is included. Platelet Estimate Decreased (A) Adequate 12/13/2024 4:55 AM EDT [facility] RBC Morphology abnormal( A) Normal 12/13/2024 4:55 AM EDT [facility] Anisocytosis 1+ 12/13/2024 4:55 AM EDT [facility] Hypochromia 1+ 12/13/2024 4:55 AM EDT [facility] Ovalocytes 1+ 12/13/2024 4:55 AM EDT [facility] Blood Venipuncture / Unknown 12/13/2024 3:15 AM EDT 12/13/2024 3:27 AM EDT Venkatesh Stephen MD LAB BLOOD ORDERABLES Final Resul t Performing Organization Address [facility] Co de Phone Number [facility] [address] [phone] * (ABNORMAL) Hepatic function panel (12/13/2024 3:15 AM EDT) Protein, Total 5.7(L) 6.4 - 8.3 g/dL 12/13/2024 4:13 AM EDT [facility] Albumin 3.1(L) 3.5 - 5.0 g/dL 12/13/2024 4:13 AM EDT [facility] Total Bilirubin 0.8 0.2 - 1.2 mg/dL 12/13/2024 4:13 AM EDT [facility] Bilirubin, Direct 0.4 0.0 - 0.5 mg/dL 12/13/2024 4:13 AM EDT [facility] Alkaline Phosphatase 53 40 - 150 U/L 12/13/2024 4:13 AM EDT [facility] Globulin 2.6 2.5 - 4.1 g/dL 12/13/2024 4:13 AM EDT [facility] A/G Ratio 1.2 0.7 - 1.9 12/13/2024 4:13 AM EDT [facility] AST 42(H) 11 - 34 U/L 12/13/2024 4:13 AM EDT [facility] Comment: AST2 reagent used for testing does not contain P5P supplementation and therefore may miss AST elevations in patients with B6 deficiency. This population may be as high as 10% in the [place], with risk factors including malabsorption, drug interactions, and alcoholic hepatitis. ALT 16 <=34 U/L 12/13/2024 4:13 AM EDT [facility] Comment: ALT2 reagent [...] OROZCO LAB BLOOD ORDERABLES Final Resu lt Performing Organization Address City/State/[facility] Co de Phone Number [facility] [address] [phone] * (ABNORMAL) Basic Metabolic Panel (12/13/2024 3:15 AM EDT) Only the most recent of6 resultswithin the time period is included. Sodium 147(H) 136 - 145 meq/L 12/13/2024 4:13 AM EDT [facility] Potassium 3.5 3.4 - 5.1 meq/L 12/13/2024 4:13 AM EDT [facility] CO2 27 22 - 29 meq/L 12/13/2024 4:13 AM EDT [facility] Chloride 110 98 - 112 meq/L 12/13/2024 4:13 AM EDT [facility] Glucose 135(H) 82 - 115 mg/dL 12/13/2024 4:13 AM EDT [facility] BUN 71.9(H) 9.8 - 20.1 mg/dL 12/13/2024 4:13 AM EDT [facility] Creatinine 2.29(H) 0.57 - 1.11 mg/dL 12/13/2024 4:13 AM EDT [facility] BUN/Creatinine 31(H) 8 - 20 12/13/2024 4:13 AM EDT [facility] Calcium 8.5 8.4 - 10.2 mg/dL 12/13/2024 4:13 AM EDT [facility] Anion Gap 14(H) 4 - 12 12/13/2024 4:13 AM EDT [facility] eGFR (mL/min/1.73m2) 24(L) >=60 mL/min/1.7 3m2 12/13/2024 4:13 AM EDT [facility] Osmolality Calc 315.6 mOsm/kg 4:13 AM EDT [facility] Blood Venipuncture / Unknown 12/13/2024 3:15 AM EDT 12/13/2024 3:39 AM EDT us Venkatesh Stephen MD LAB BLOOD ORDERABLES Final Resul t [facility] [address] [phone] * US paracentesis (12/10/2024 11:37 AM EDT) [...] Ascites. ATTENDING PHYSICIAN: Dr. Haseeb Gil PHYSICIAN CHECK AND TRANSFER BEADER: Sujit Blackman PA-C FINDINGS: After informed consent [...] Ascites. ATTENDING PHYSICIAN: Dr. Haseeb Gil PHYSICIAN CHECK AND TRANSFER BEADER: Sujit Blackman PA-C FINDINGS: After informed consent [...] Blackman PA-C. us Mary Carmen Mcfadden MD [facility] [place] ORDER[place]LES Final Result * ALT (SGPT) (12/10/2024 9:53 AM EDT) ALT 12 <=34 U/L 12/10/2024 11:02 AM EDT [facility] Comment: ALT2 reagent [...] ORDERABLES Final Resul t Performing Organization Address [facility] Co de Phone Number [facility] [address] [phone] * (ABNORMAL) AST (SGOT) (12/10/2024 9:53 AM EDT) AST 39(H) 11 - 34 U/L 12/10/2024 11:02 AM EDT [facility] Comment: AST2 reagent used for testing does not contain P5P supplementation and therefore may miss AST elevations in patients with B6 deficiency. This population may be as high as 10% in the [place], with risk factors including malabsorption, drug interactions, and alcoholic hepatitis. Asteres has become aware of sulfasalazine and sulfapyridine [...] ORDERABLES Final Resul t Performing Organization Address [facility] Co de Phone Number [facility] [address] [phone] * Magnesium (12/10/2024 9:53 AM EDT) Only the most recent of9 resultswithin the time period is included. Magnesium 2.3 1.6 - 2.6 mg/dL 12/10/2024 11:02 AM EDT [facility] Blood Venipuncture / Unknown 12/10/2024 9:53 AM EDT 12/10/2024 10:39 AM EDT us Deysi Jon MD LAB BLOOD ORDERABLES Final Resul t [facility] [address] [phone] * XR chest AP portable (12/10/2024 9:10 [...] 7.35 - 7.45 12/10/2024 6:51 AM EDT [facility] pCO2, Arterial 49(H) 35 - 45 mm Hg 12/10/2024 6:51 AM EDT [facility] pO2, Arterial 119(H) 80 - 100 mm Hg 12/10/2024 6:51 AM EDT [facility] HCO3, Arterial 24 20 - 26 mmol/L 12/10/2024 6:51 AM EDT [facility] Base Excess, Arterial -2.4(L) -2.0 - 2.0 mmol/L 12/10/2024 6:51 AM EDT [facility] O2 Sat, Arterial >99.2 95.0 - 100.0 % 12/10/2024 6:51 AM EDT [facility] Comment:notified at read-anny k verification CTO2 ARTERIAL 11.9 mmol/L 12/10/2024 6:51 AM T [facility] THB ARTERIAL 8.5(L) 12.0 - 18.0 g/dL 12/10/2024 6:51 AM EDT [facility] COLLECTION SITE Left Radial 12/10/2024 6:51 AM EDT [facility] Arterial Puncture Yes 12/10/2024 6:51 AM [facility] Blood Gas O2 Delivery Device Cannula 12/10/2024 6:51 AM [facility] Oxygen Flow Rate 4 12/11/19 25 [facility] Gas PT Temperature C 37.0 12/10/2024 6:51 AM T [facility] Sen's Test Acceptable 12/10/2024 6:51 [facility] ABG Number of Draw Attempts 1 12/10/2024 6:51 AM EDT [facility] FIO2 12/10/2024 6:51 AM EDT [facility] Blood Gas Temperature Corrected Results No No 12/10/2024 6:51 AM EDT [facility] Blood, Arterial Collection / Unknown 12/10/2024 6:42 AM EDT 12/10/2024 6:51 AM EDT us Blanka Alvarez MD LAB BLOOD ORDERABLES Final Re sult [facility] [address] [phone] * (ABNORMAL) CBC - Hemogram (SJ-BKR) (12/09/2024 3:38 AM EDT) Only the most recent of8 resultswithin the time period is included. WBC 2.4(L) 4.0 - 10.0 K/ L 12/09/2024 3:59 AM EDT [facility] RBC 2.83(L) 3.93 - 5.22 M/ L 12/09/2024 3:59 AM EDT [facility] Hemoglobin 8.5(L) 11.2 - 15.7 GM/DL 12/09/2024 3:59 AM EDT [facility] Hematocrit 28.0(L) 34.1 - 44.9 % 12/09/2024 3:59 AM EDT [facility] MCV 99(H) 79 - 95 fL 12/09/2024 3:59 AM EDT [facility] MCH 30.0 25.6 - 32.2 pg 12/09/2024 3:59 AM EDT [facility] MCHC 30.4(L) 32.2 - 35.5 GM/DL 12/09/2024 3:59 AM EDT [facility] RDW 17.2(H) 11.7 - 14.4 % 12/09/2024 3:59 AM EDT [facility] Platelets 55(L) 140 - 375 K/CU MM 12/09/2024 3:59 AM EDT [facility] MPV 11.5 9.4 - 12.3 fL 12/09/2024 3:59 AM EDT [facility] Blood Venipuncture / Unknown 12/09/2024 3:38 AM EDT 12/09/2024 3:45 AM EDT Mary Carmen Mcfadden MD LAB BLOOD ORDERABLES Final Resu lt [facility] [address] [phone] * Erythropoietin(SENDOUT) (12/07/2024 3:59 AM EDT) Pathologist [facility] Erythropoietin 19 4 - 27 mU/mL 12/08/2024 2:30 PM EDT [facility] Comment: INTERPRETIVE INFORMATION: Erythropoietin Normal serum concentrations [...] benefit from therapy with recombinant EPO ([facility] [id number],1989). Performed By: [facility] [address] [place] [address] Hot Car Operator: Lalo Mortensen MD, PhD CLIA Number: [id number] Blood Venipuncture / Unknown 12/07/2024 3:59 AM EDT 12/07/2024 4:11 AM EDT us Ariel Mills MD LAB BLOOD ORDERABLES Final Res ult Performing Organization Address City/[facility] Co de Phone Number [facility] [address] [place], [place] [address] [phone] * Ammonia (12/07/2024 3:59 AM EDT) Only the most recent of8 resultswithin the time period is included. Ammonia 44 18 - 72 mol/L 12/07/2024 4:37 AM EDT [facility] Blood Venipuncture / Unknown 12/07/2024 3:59 AM EDT 12/07/2024 4:22 AM EDT Timothy Bai MD LAB BLOOD ORDERABLES Final Result Performing Organization Address [facility] de Phone Number [facility] [address] [phone] * (ABNORMAL) Ferritin (12/06/2024 3:13 AM EDT) Only the most recent of2 resultswithin the time period is included. Ferritin 256.82(H) 4.63 - 204.00 ng/mL 12/06/2024 8:25 AM EDT [facility] Blood Venipuncture / Unknown 12/06/2024 3:13 AM EDT 12/06/2024 3:50 AM EDT us Ariel Mills MD LAB BLOOD ORDERABLES Final Res ult Performing Organization Address [facility] Co de Phone Number [facility] [address] [phone] * (ABNORMAL) Hemoglobin (12/05/2024 3:36 PM EDT) Only the most recent of11 resultswithin the time period is included. [facility] Hemoglobin 8.1(L) 11.2 - 15.7 GM/DL 12/05/2024 3:57 PM EDT [facility] Blood Venipuncture / Unknown 12/05/2024 3:36 PM EDT 12/05/2024 3:47 PM EDT us Timothy Bai MD LAB BLOOD ORDERABLES Final Result [facility] [address] [phone] * ANCA Vasculitis Profile(SENDOUT) (12/04/2024 8:15 AM EDT) [facility] Myeloperoxidase (MPO) Ab, IgG 0 0 - 19 AU/mL 12/07/2024 8:52 AM EDT [facility] Comment: INTERPRETIVE INFORMATION: Myeloperoxidase Abs, IgG 19 AU/mL or Less ......... Negative 20-25 AU/mL .............. Equivocal 26 AU/mL or Greater ...... Positive Approximately 90% of patients with a P-ANCA pattern by IFA have antibodies specific for MPO. Serine Proteinase 3 (PR3) Ab, IgG 0 0 - 19 AU/mL 12/07/2024 8:52 AM EDT [facility] Comment: INTERPRETIVE INFORMATION: Serine Proteinase 3, IgG 19 AU/mL or Less ........ Negative 20-25 AU/mL ............. Equivocal 26 AU/mL or Greater ..... Positive Approximately 85% of patients with a C-ANCA pattern by IFA have antibodies specific for PR3. ANCA IFA Titer <1:20 <1:20 12/07/2024 8:52 AM EDT [facility] ANCA IFA Pattern None Detected None Detected 12/07/2024 8:52 AM EDT [facility] Comment: INTERPRETIVE INFORMATION: ANCA IFA Pattern Neutrophil Cytoplasmic Antibodies (C-ANCA = granular cytoplasmic staining, P-ANCA = perinuclear staining) are found in the serum of over 90 percent of patients with certain necrotizing systemic vasculitides, and usually in less than 5 percent of patients with collagen vascular disease or arthritis. Performed By: [facility] [address] [place] [address] Hot Car Operator: Lalo Mortensen MD, PhD CLIA Number: [id number] Blood Venipuncture / Unknown 12/04/2024 8:15 AM EDT 12/04/2024 8:32 AM EDT us Hema Cervantes MD LAB BLOOD ORDERABLES Final Re sult [facility] [address] [place] [id number], [facility] [phone] * JEANA Reflexive Profile(SENDOUT) (12/04/2024 8:15 AM EDT) Anti-Nuclear Ab (JEANA), IgG by SHARON None Detected None Detected 12/06/2024 3:51 PM EDT [facility] Comment: No Anti-Nuclear Antibodies (JENAA) detected by SHARON. The Extractable Nuclear Antigen Antibodies (BACK HANGER, Llanes, SSA 52, SSA 60, Scleroderma, Lilia-1 and SSB) and Double Stranded DNA (dsDNA) Antibody, IgG will not be performed. If suspicion of connective tissue disease is strong, and JEANA is negative by SHARON, consider testing for JEANA by IFA ([id number]). INTERPRETIVE INFORMATION: Anti-Nuclear Antibodies (JEANA), IgG by SHARON Antinuclear Antibodies (JEANA), IgG by SHARON: JEANA specimens are screened using enzyme-linked immunosorbent assay (SHARON) methodology. All SHARON results reported as Detected are further tested by indirect fluorescent assay (IFA) using HEp-2 substrate with an IgG-specific conjugate. The JEANA SHARON screen is designed to detect antibodies against dsDNA, histones, SS-A (Ro), SS-B (La), Llanes, Llanes/BACK HANGER, Scl-70, Lilia-1, centromeric proteins, other antigens extracted from the HEp-2 cell nucleus. JEANA SHARON assays have been reported to have lower sensitivities than JEANA IFA for systemic autoimmune rheumatic diseases (SARD). Negative results do not necessarily rule out SARD. Performed By: [facility] [address] [place] [address] Hot Car Operator: Lalo Mortensen MD, PhD CLIA Number: [id number] Blood Venipuncture / Unknown 12/04/2024 8:15 AM EDT 12/04/2024 8:32 AM EDT Hema Cervantes MD LAB BLOOD ORDERABLES Final Re sult Performing Organization Address City/[facility]/ZIP Co de Phone Number [facility] [address] [place] [address], [facility] [phone] * Phosphorus (12/04/2024 3:34 AM EDT) Pathologist [facility] Phosphorus 4.2 2.5 - 4.5 mg/dL 12/04/2024 4:04 AM EDT [facility] Blood Venipuncture / Unknown 12/04/2024 3:34 AM EDT 12/04/2024 3:41 AM EDT Kirsty Tuttle APRN LAB BLOOD ORDERABLES Final R esult Performing Organization Address [facility] de Phone Number [facility] [address] [phone] * Creatine Kinase (CK) (12/03/2024 7:39 AM EDT) Only the most recent of2 resultswithin the time period is included. Total CK 55 29 - 168 U/L 12/03/2024 6:19 PM EDT [facility] Blood Venipuncture / Unknown 12/03/2024 7:39 AM EDT 12/03/2024 5:52 PM EDT Hema Cervantes MD LAB BLOOD ORDERABLES Final Re sult Performing Organization Address [facility] Co de Phone Number [facility] [address] [phone] * Transfuse RBC (12/02/2024 5:03 PM EDT) [...] Pancytopenia. ATTENDING RADIOLOGIST: Dr. Haseeb Gil. PHYSICIAN CHECK AND TRANSFER BEADER: Sandra Ramsey PA-C PROCEDURE: After informed consent [...] Pancytopenia. ATTENDING RADIOLOGIST: Dr. Haseeb Gil. PHYSICIAN CHECK AND TRANSFER BEADER: Sandra Ramsey PA-C PROCEDURE: After informed consent [...] Transcribed by Sandra Ramsey PA-C. us Laura Batista MD IM CT ORDERABLES Final Result * [facility] BONE MARROW SMEAR, ASPIRATION, AND STAIN (12/02/2024 12:06 PM EDT) AP RESULT See Note: PATHOLOGY AND CYTOLOGY LABORATORY Comment: [facility] [address] [place] [address] or [phone] Joe Carlos M.D., Circulation Assistant PATIENT NAME LABORATORY NO. 170MARY PETERSEN. [id number] [facility] MAIN AGE SEX SSN CLIENT REF # [id number] 1960 F [id number] 1 [place] [address] REQUESTING Aleksandr ATTENDING Aleksandr. COPY TO.. LAURA BATISTA DATE COLLECTED DATE RECEIVED DATE REPORTED 12/02/2024 12/02/2024 12/06/2024 ADDENDUM PRESENT ADDENDUM: Cytogenetics shows a normal female karyotype, 46,XX[20]. The original diagnosis remains unchanged. Verified by Heydi Mak M.D., MPH on 12/13/2024 Professional interpretation rendered by Heydi Mak M.D., MPH at [facility], [address] [place] [address]. DIAGNOSIS: PERIPHERAL SMEAR , BONE MARROW ASPIRATION [...] CD38, CD45, CD56, CD57, CD117, CD123, HLA-DR, [place], and Lambda. These tests use analyte specific [...] rendered by Heydi Mak M.D., MPH at [facility], [address] [place] [address]. GROSS DESCRIPTION: A. Received 1 peripheral blood smear slide for review. B. Received 5 bone marrow aspirate smear slides for review. 4 additional bone marrow aspirate smear slides made at [facility]. C. Received in a purple top [...] BY: Heydi Mak M.D., MPH CPT CODES: [id number], [id number], 48110, [id number], [id number], 74431, 85308, [id number] Bone Marrow BONE MARROW STRUCTURE / Unknown 12/02/2024 12:06 PM EDT Laura Batista MD PATHOLOGY/CYTOLOGY ORDERABLES Edited Result - Final PATHOLOGY AND CYTOLOGY LABORATORY [address] [place] [address] * Prepare RBC: 1 Units (12/02/2024 9:36 AM EDT) Only the most recent of2 resultswithin the time period is included. Issue Date/Time [id number] [facility] ([place]) Product Identification Red Blood Cells [facility] ([place]) Product Code [id number] [facility] ([place]) Status Information Transfused [facility] ([place]) Unit Number [id number] [facility] ([place]) Blood Type 5100 [facility] ([place]) Cross Match Results Compatible [facility] ([place]) Timothy Bai MD FS_MODEL_IP_BLOOD BANK PRO DUCT ORDERABLES Final Result Performing Organization Address [facility] Co de Phone Number [facility] ([place]) [address] [place] [address], [facility] [phone] * (ABNORMAL) Hemoglobin and hematocrit (12/02/2024 7:40 AM EDT) Hemoglobin 7.4(L) 11.2 - 15.7 GM/DL 12/02/2024 9:43 AM EDT [facility] Hematocrit 23.4(L) 34.1 - 44.9 % 12/02/2024 9:43 AM EDT [facility] Blood Venipuncture / Unknown 12/02/2024 7:40 AM EDT 12/02/2024 7:47 AM EDT Timothy Bai MD LAB BLOOD ORDERABLES Final Result Performing Organization Address [facility] Co de Phone Number [facility] [address] [place] [address], [facility] [phone] * AN SINGLE LUMEN INTUBATION (12/01/2024 9:01 [...] ABO/Rh O Positive 12/01/2024 4:53 AM EDT [facility] ([place]) Antibody Screen Negative 12/01/2024 4:53 AM EDT [facility] ([place]) HISTCHK HIST CHECK PERFORMED 12/01/2024 4:53 AM EDT [facility] ([place]) Blood Venipuncture / Unknown 12/01/2024 7:08 AM EDT 12/01/2024 7:15 AM EDT us Denilson Hodgson DO [facility] BLOOD [facility] TEST ORDERABLES Final Result Performing Organization Address [facility]/ZIP Co de Phone Number [facility] ([place]) [address] [place] [address] [phone] * ABO/RH Confirmation/Retype (12/01/2024 4:06 AM EDT) RETYPE O Positive 12/01/2024 5:15 AM EDT [facility] ([place]) Comment:[id number] Blood Venipuncture / Unknown 12/01/2024 4:06 AM EDT 12/01/2024 5:14 AM EDT Timothy Bai MD [facility] BLOOD BANK TEST ORDERA BLES Final Result Performing Organization Address City/[facility]/ZIP Co de Phone Number [facility] ([place]) [address] [place] [address] [phone] * Ultrasound renal limited (11/30/2024 4:19 PM [...] - 25 % 025 8:49 PM EDT [facility] Lymphocytes Fluid 46 % 025 8:49 PM EDT [facility] Unidentified Mononuclear Cells BF 49 0 - 0 % 11/30/2024 8:49 PM EDT [facility] Peritoneal Fluid BODY FLUID / Unknown 11/30/2024 4:03 PM EDT 11/30/2024 4:33 PM EDT us Huey Hurtado MD BODY FLUIDS AND STOOLS ORDERABLE S Final Result [facility] [address] [phone] * [facility] Non-Land Acquisition Manager Cytology (11/30/2024 4:03 PM EDT) AP RESULT See Note: PATHOLOGY AND CYTOLOGY LABORATORY Comment: [facility] [address] [place] [address] or [phone] Joe Carlos M.D., Circulation Assistant PATIENT NAME LABORATORY NO. MARY OLIVA. [id number] AGE SEX SSN CLIENT REF # [facility] 64 1960 F [id number] [address] [facility] REQUESTING Aleksandr ATTENDING [place] [address] HUEY HURTADO DATE COLLECTED DATE RECEIVED DATE REPORTED 11/30/2024 12/01/2024 12/02/2024 DIAGNOSIS: PERITONEAL FLUID: Negative for malignant cells. MICROSCOPIC DESCRIPTION: Scattered mesothelial cells and chronic inflammatory cells are present. Professional interpretation rendered by John Sanchez M.D., F.C.A.P. at [facility], [employer], [address] [place] [address]. CLINICAL HISTORY: Melena Anasarca Acute renal failure SPECIMENS SUBMITTED: PERITONEAL FLUID GROSS SPECIMEN DESCRIPTION: 40 ccs of hazy, light yellow fluid, scant sediment, received in fixative ThinPrep slides prepared. Cell block has been examined. HAIRSPRING TRUER: SVITLANA HERNANDEZ (ASCP) REVIEWED, DIAGNOSED AND ELECTRONICALLY SIGNED BY: John Sanchez M.D., Elizabeth CPT CODES: [id number], 17233 Peritoneal Fluid BODY FLUID / Unknown 11/30/2024 4:03 PM EDT us Huey Hurtado MD PATHOLOGY/CYTOLOGY ORDERABLES Fi nal Result PATHOLOGY AND CYTOLOGY LABORATORY [address] * AFB Culture And Stain (11/30/2024 4:03 PM EDT) Result No Acid Fast Bacilli isolated at 6 weeks 01/11/2025 5:00 PM EDT [facility] AFB Smear No acid fast bacilli seen 01/11/2025 5:00 PM EDT [facility] Peritoneal Fluid BODY FLUID / Unknown 11/30/2024 4:03 PM EDT 11/30/2024 4:34 PM EDT Narrative [facility] - 01/11/2025 5:00 PM EDT Specimen Description: peritoneal fluid us Huey Hurtado MD MICROBIOLOGY - GENERAL ORDERABLE S Final Result Performing Organization Address City/[facility]/ZIP Co de Phone Number [facility] [address] [phone] * Body Fluid/CSF - Path Review (SJ) (11/30/2024 4:03 PM EDT) SENT TO PATHOLOGY FOR REVIEW Yes 12/03/2024 6:54 AM EDT [facility] Scan Result Mesothelial cells. MD German 12/02/2024 12/03/2024 6:54 AM EDT [facility] Peritoneal Fluid BODY FLUID / Unknown 11/30/2024 4:03 PM EDT 11/30/2024 4:33 PM EDT us Huey Hurtado MD BODY FLUIDS AND STOOLS ORDERABLE S Final Result [facility] [address] [phone] * Fungus Culture W/ROSA MARIA Or Nimisha Ink (11/30/2024 4:03 PM EDT) Result No fungus isolated at 6 weeks. 01/11/2025 5:00 PM EDT [facility] ROSA MARIA Prep No fungal elements seen 01/11/2025 5:00 PM EDT [facility] Peritoneal Fluid BODY FLUID / Unknown 11/30/2024 4:03 PM EDT 11/30/2024 4:34 PM EDT [facility] LABORATORY - 01/11/2025 5:00 PM EDT Specimen Description: peritoneal fluid us Huey Hurtado MD MICROBIOLOGY - GENERAL ORDERABLE S Final Result Performing Organization Address [facility] Co de Phone Number [facility] [address] [phone] * Glucose, body fluid (11/30/2024 4:03 PM EDT) Glucose, Body Fluid 107 See Comment mg/dL 12/01/2024 7:10 AM EDT [facility] BODY FLUID TYPE Peritoneal 12/01/2024 7:10 AM EDT [facility] Body Fluid PERITONEAL FLUID / Unknown 11/30/2024 4:03 PM EDT 12/01/2024 6:52 AM EDT [facility] LABORATORY - 12/01/2024 7:10 AM EDT This test has been modified from the occupational medicine physician's instructions and its performance characteristics were determined [...] ORD ERABLES Final Result Performing Organization Address [facility] Co de Phone Number [facility] [address] [phone] * Anaerobic Culture (11/30/2024 4:03 PM EDT) Result No Anaerobic growth 12/05/2024 6:34 AM EDT [facility] Peritoneal Fluid BODY FLUID / Unknown 11/30/2024 4:03 PM EDT 11/30/2024 4:34 PM EDT Narrative [facility] - 12/05/2024 6:34 AM EDT Specimen Description: peritoneal fluid us Huey Hurtado MD MICROBIOLOGY - GENERAL ORDERABLE S Final Result Performing Organization Address City/[facility]/ZIP Co de Phone Number [facility] [address] [phone] * Body Fluid Culture + Gram Stain (11/30/2024 4:03 PM EDT) Result No growth 12/03/2024 9:07 AM EDT [facility] Gram Stain Result No organisms seen 12/03/2024 9:07 AM EDT [facility] Gram Stain Result No cells seen 12/03/2024 9:07 AM EDT [facility] Peritoneal Fluid BODY FLUID / Unknown 11/30/2024 4:03 PM EDT 11/30/2024 4:34 PM EDT [facility] LABORATORY - 12/03/2024 9:07 AM EDT Specimen Description: peritoneal fluid us Huey Hurtado MD MICROBIOLOGY - GENERAL ORDERABLE S Final Result [facility] [address] [phone] * (ABNORMAL) Body fluid cell count with differential (11/30/2024 4:03 PM EDT) Appearance Cloudy(A) Clear 11/30/2024 8:49 PM EDT [facility] Color Yellow 11/30/2024 8:49 PM EDT [facility] BODY FLUID TYPE Peritoneal 11/30/2024 8:49 PM EDT [facility] Auto WBC/Nucleated Cells BF 85 /uL 11/30/2024 8:49 PM EDT [facility] Comment: Please refer to specific WBC/Nucleated Cell Count Body Fluid reference ranges below: For Pleural: 0-1000 Peritoneal: 0-1000 Pericardial:0-1000 Synovial: 0-200 Auto RBC BF <3,000 /uL 11/30/2024 8:49 PM EDT [facility] Comment: Please refer to specific RBC Cell Count Body Fluid reference ranges below: Pleural: 0-10,000 Peritoneal: 0-10,000 Pericardial:0-10,000 Synovial:0-30 Peritoneal Fluid BODY FLUID / Unknown 11/30/2024 4:03 PM EDT 11/30/2024 4:33 PM EDT [facility] LABORATORY - 11/30/2024 8:49 PM EDT There is normally no readily obtainable pleural, peritoneal and pericardial fluid, hence normal elements for these potential fluids are not defined. us Huey Hurtado MD BODY FLUIDS AND STOOLS ORDERABLE S Final Result [facility] [address] [phone] * Protein, body fluid (11/30/2024 4:03 PM EDT) Protein, Fluid 1.9 See Comment g/dL 12/01/2024 7:10 AM EDT [facility] BODY FLUID TYPE Peritoneal 12/01/2024 7:10 AM EDT [facility] Body Fluid PERITONEAL FLUID / Unknown 11/30/2024 4:03 PM EDT 12/01/2024 6:52 AM EDT [facility] LABORATORY - 12/01/2024 7:10 AM EDT This test has been modified from the occupational medicine physician's instructions and its performance characteristics were determined [...] ORD ERABLES Final Result Performing Organization Address [facility]/ZIP Co de Phone Number [facility] [address] [phone] * Lactate dehydrogenase (LDH), body fluid (11/30/2024 4:03 PM EDT) LDH, Fluid 71 See Comment U/L 11/30/2024 6:19 PM EDT [facility] BODY FLUID TYPE Peritoneal 11/30/2024 6:19 PM EDT [facility] Peritoneal Fluid BODY FLUID / Unknown 11/30/2024 4:03 PM EDT 11/30/2024 4:33 PM EDT Narrative [facility] - 11/30/2024 6:19 PM EDT This test has been modified from the occupational medicine physician's instructions and its performance characteristics were determined by the laboratory. The reference intervals and other method performance specifications are unavailable for this test. It is recommended to interpret body fluid concentrations in comparison with the corresponding serum or plasma concentrations and to integrate test results into the clinical context. Huey Hurtado MD BODY FLUIDS AND STOOLS ORDERABLE S Final Result Performing Organization Address [facility] Co de Phone Number [facility] [address] [place] [address] * (ABNORMAL) Urinalysis, Reflex Microscopic and Culture If Indicated (11/30/2024 11:35 AM EDT) Color, UA Light Yellow 11/30/2024 12:06 PM EDT [facility] Clarity, UA Turbid(A) Clear 11/30/2024 12:06 PM EDT [facility] Specific [place], UA 1.011 1.005 - 1.030 11/30/2024 12:06 PM EDT [facility] pH, UA 5.0(L) 6.0 - 8.0 11/30/2024 12:06 PM EDT [facility] Leukocytes, UA 500 Félix/uL(A) Negative 11/30/2024 12:06 PM EDT [facility] Nitrite, UA Negative Negative 11/30/2024 12:06 PM EDT [facility] Protein, UA Negative Negative 11/30/2024 12:06 PM EDT [facility] Glucose, UA Normal Normal 11/30/2024 12:06 PM EDT [facility] Ketones, UA Negative Negative 11/30/2024 12:06 PM EDT [facility] Bilirubin, UA Negative Negative 11/30/2024 12:06 PM EDT [facility] Blood, UA Negative Negative 11/30/2024 12:06 PM EDT [facility] Urobilinogen, UA Normal Normal 11/30/2024 12:06 PM EDT [facility] Specimen Source Urine, Clean Catch 11/30/2024 12:06 PM EDT [facility] Urine URINE SPECIMEN COLLECTION, CLEAN CATCH / Unknown 11/30/2024 11:35 AM EDT 11/30/2024 11:41 AM EDT Destiney Llanes REVENUE OFFICER URINE ORDERABLES Final Resu lt [facility] [address] [phone] * (ABNORMAL) Urinalysis Microscopic Only (11/30/2024 11:35 AM EDT) WBC, UA 21-50(A) None Seen /HPF 11/30/2024 12:06 PM EDT [facility] RBC, UA 0-2(A) None Seen /HPF 11/30/2024 12:06 PM EDT [facility] Bacteria, UA 1+(A) None Seen, Trace 11/30/2024 12:06 PM EDT [facility] Mucus 1+(A) None Seen 11/30/2024 12:06 PM EDT [facility] SQUAMOUS EPITHELIAL 3-5(A) None Seen /HPF 11/30/2024 12:06 PM EDT [facility] HYALINE CASTS 21-50(A) None Seen /LPF 11/30/2024 12:06 PM EDT [facility] Urine URINE SPECIMEN COLLECTION, CLEAN CATCH / Unknown 11/30/2024 11:35 AM EDT 11/30/2024 11:41 AM EDT us Destiney Llanes APRN URINE ORDERABLES Final Resu lt Performing Organization Address City/[facility]/ZIP Co de Phone Number [facility] [address] [phone] * Urea Nitrogen, random urine (11/30/2024 11:35 AM EDT) Urea Nitrogen, Ur 305 mg/dL 11/30/2024 12:36 PM EDT [facility] Comment:Reference Range not established Urine 11/30/2024 11:3 5 AM EDT 11/30/2024 12:15 PM EDT us Hill Boo MD URINE ORDERABLES Final Result Performing Organization Address [facility] Co de Phone Number [facility] [address] [phone] * Protein / creatinine ratio, urine (11/30/2024 11:35 AM EDT) Creatinine, Ur 62.00 47.00 - 110.00 mg/dL 11/30/2024 12:36 PM EDT [facility] Protein Creatinine Ratio 0.19 <=0.20 11/30/2024 12:36 PM EDT [facility] Protein, Urine 12 1 - 14 mg/dL 11/30/2024 12:36 PM EDT [facility] Urine 11/30/2024 11:3 5 AM EDT 11/30/2024 12:15 PM EDT us Hill Boo MD URINE ORDERABLES Final Result Performing Organization Address City/[facility]/ZIP Co de Phone Number [facility] [address] [phone] * Sodium, random urine (11/30/2024 11:35 AM EDT) Sodium Urine 83 See Comment meq/L 11/30/2024 12:36 PM EDT [facility] Comment:Reference Range not established Urine 11/30/2024 11:3 5 AM EDT 11/30/2024 12:15 PM EDT Hill Boo MD URINE ORDERABLES Final Result Performing Organization Address [facility] Co de Phone Number [facility] [address] [phone] * Urine Culture (11/30/2024 11:35 AM EDT) Pathologist [facility] Result Recollect Specimen - 3 or more organisms suggests contamination 12/01/2024 6:49 AM EDT [facility] Urine URINE SPECIMEN COLLECTION, CLEAN CATCH / Unknown 11/30/2024 11:35 AM EDT 11/30/2024 11:41 AM EDT Destiney Llanes APRN MICROBIOLOGY - GENERAL ORDE RABLES Final Result Performing Organization Address [facility] Co de Phone Number [facility] [address] [phone] * (ABNORMAL) Monoclonal Protein Study, Expanded Panel(SENDOUT) [...] - 1.10 g/dL 12/03/2024 12:57 PM EDT [facility] Gamma 1.47 0.62 - 1.51 g/dL 12/03/2024 12:57 PM [facility] Immunofixation MAEGAN Done 12/03/2024 12:57 PM EDT [facility] Immunoglobulin G 1484 768 - 1632 mg/dL 12/03/2024 12:57 PM EDT [facility] Immunoglobulin A 686(H) 68 - 408 mg/dL 12/03/2024 12:57 PM EDT [facility] Immunoglobulin M 126 35 - 263 mg/dL 12/03/2024 12:57 PM EDT [facility] Monoclonal Protein Not Applicable <=0.00 g/dL 12/03/2024 12:57 PM EDT [facility] [place] Qnt Free Light Chains 173.10(H) 3.30 - 19.40 mg/L 12/03/2024 12:57 PM [facility] Comment: INTERPRETIVE INFORMATION: [place] Qnt Free Light Chains Undetected antigen excess is a rare event but cannot be excluded. Free light chain results should always be interpreted in conjunction with other clinical and laboratory findings. Lambda Qnt Free Light Chains 123.84(H) 5.71 - 26.30 mg/L 12/03/2024 12:57 PM [facility] Comment: INTERPRETIVE INFORMATION: Lambda Qnt Free Light Chains Undetected antigen excess is a rare event but cannot be excluded. Free light chain results should always be interpreted in conjunction with other clinical and laboratory findings. [place]/Lambda Free Light Chain Ratio 1.40 0.26 - 1.65 12/03/2024 12:57 PM [facility] SPEP/MAEGAN Interpretation See Note 12/03/2024 12:57 PM [facility] Comment: Restricted band in the [...] Serum See Note 12/03/2024 12:57 PM T [facility] Comment: Authorized individuals can access the [facility] Enhanced Report with an [employer] Connect account using the following link. Your local lab can assist you in obtaining the patient report if you don't have a Connect account. [email or web address] Performed By: [facility] [address] [place] [address] Hot Car Operator: Lalo Mortensen MD, PhD CLIA Number: [id number] Blood Venipuncture / Unknown 11/30/2024 11:01 AM EDT 11/30/2024 12:17 PM EDT Hill Boo MD LAB BLOOD ORDERABLES Final Resu lt [facility] [address] [place] [address], [facility] [phone] * Alpha Fetoprotein Tumor Marker(SENDOUT) (11/30/2024 11:01 AM EDT) Alpha Fetoprotein Tumor Marker 2 0 - 9 ng/mL 12/01/2024 3:41 PM EDT [facility] Comment: INTERPRETIVE INFORMATION: Alpha Fetoprotein Tumor Marker [...] reference intervals for this test in the [employer] [facility] Test Directory ([email or web address]). Performed By: [facility] [address] [place] [address] Hot Car Operator: Lalo Mortensen MD, PhD CLIA Number: [id number] Blood Venipuncture / Unknown 11/30/2024 11:01 AM EDT 11/30/2024 11:06 AM EDT us Destiney Llanes APRN LAB BLOOD ORDERABLES Final Result [facility] [address] [place] [address], [facility] [phone] * (ABNORMAL) Vitamin D, 25-Hydroxy (11/30/2024 8:20 AM EDT) Vitamin D 25-Hydroxy 22.0(L) 30 - 80 ng/mL 11/30/2024 9:48 AM EDT [facility] Blood Venipuncture / Unknown 11/30/2024 8:20 AM EDT 11/30/2024 9:08 AM EDT Timothy Bai MD LAB BLOOD ORDERABLES Final Result Performing Organization Address [facility] Co de Phone Number [facility] [address] [phone] * Hemoglobin A1c (11/30/2024 8:20 AM EDT) Hemoglobin A1C 4.9 4.0 - 5.6 % 11/30/2024 9:17 AM EDT [facility] Comment: Hemoglobin A1C levels are related to mean glucose during the preceding 2-3 months. Less than 7% demonstrates glycemic control in diabetic patients. Hemoglobin AlC % Suggested Diagnosis > or = 6.5 Diabetic 5.7 - 6.4 Prediabetic <5.7 Non-diabetic eAVG Glucose 93.93 70 - 126 mg/dL 11/30/2024 9:17 AM EDT [facility] Blood Venipuncture / Unknown 11/30/2024 8:20 AM EDT 11/30/2024 9:07 AM EDT us Huey Hurtado MD LAB BLOOD ORDERABLES Final Resul t [facility] [address] [place] [address] * ECHO COMPLETE (DOPPLER / COLOR) WO CONTRAST (11/30/2024 7:50 AM EDT) Anatomical Region Laterality Modality Heart Vascular Ultraso und 11/30/2024 7:25 AM EDT Narrative 11/30/2024 10:46 AM EDT TRANSTHORACIC ECHOCARDIOGRAPHY REPORT Demographics Patient Name: RIN JONES : 1960 Age: 64 year(s) Corporate ID Number: [id number] Gender Female Candle Molder Machine: Giovanna Rock Height: 67 inches [facility] Referring Physician: HUEY HURTADO Weight: 225 pounds Interpreting JESSICA RAYMOND MD BMI: 35.24 kg/m^2 Physician: Date of Service: 11/30/2024 Blood Pressure: 118/59 mmHg Room Number: 579 Type of Study: TTE procedure: ECHO COMPLETE (DOPPLER / COLOR) W OR WO CONTRAST. Patient Status: [facility] History/Tech Notes: [...] 1.35 m/s E/A ratio: 0.97 m/s Volume [id number] LV length: 8.51 cm ml Volume gfqwhzby40.96 ml LVOT diameter: 1.79 cm Normal sized [...] Valve TR velocity: 2.51 m/s TR gradient: 25.27491 mmHg Estimated RAP: 3 mmHg RVSP: 28.12 [...] 1960 Age: 64 year(s) Corporate ID Number: [id number] Gender Female Candle Molder Machine: Giovanna Rock Height: 67 inches [facility] Referring Physician: HUEY HURTADO Weight: 225 pounds Interpreting JESSICA RAYMOND MD BMI: 35.24 kg/m^2 Physician: Date of Service: 11/30/2024 Blood Pressure: 118/59 mmHg Room Number: 579 Type of Study: TTE procedure: ECHO COMPLETE (DOPPLER / COLOR) W OR WO CONTRAST. Patient Status: Routine IP Study Location: [facility] Quality: Adequate visualization History/Tech Notes: Indication: [...] 1.35 m/s E/A ratio: 0.97 m/s Volume [id number] LV length: 8.51 cm ml Volume bchpalex50.96 ml LVOT diameter: 1.79 cm Normal sized [...] Valve TR velocity: 2.51 m/s TR gradient: 25.64641 mmHg Estimated RAP: 3 mmHg RVSP: 28.12 [...] in 5 days 12/05/2024 5:01 AM EDT [facility] Blood ENTIRE RIGHT UPPER ARM / Unknown Venipuncture / Unknown 11/30/2024 3:42 AM EDT 11/30/2024 4:09 AM EDT Result Archana Hurtado MD MICROBIOLOGY - GENERAL ORDERABLE S Final Result [facility] [address] [phone] * Lactic Acid with reflex (11/30/2024 3:40 AM EDT) Lactic Acid Level (mmol/L) 0.9 0.5 - 2.2 mmol/L 11/30/2024 5:37 AM EDT [facility] Blood Venipuncture / Unknown 11/30/2024 3:40 AM EDT 11/30/2024 4:10 AM EDT us Huey Hurtado MD LAB BLOOD ORDERABLES Final Resul t Performing Organization Address [facility] Co de Phone Number [facility] [address] [place] [address], [facility] [phone] * Procalcitonin (11/30/2024 3:40 AM EDT) Procalcitonin 0.26 See Comment ng/mL 11/30/2024 5:07 AM EDT [facility] Comment: Sepsis comment <0.5 [...] ORDERABLES Final Resul t Performing Organization Address [facility] Co de Phone Number [facility] [address] [phone] * (ABNORMAL) Iron and TIBC (11/30/2024 3:40 AM EDT) Iron 63 50 - 170 ug/dL 11/30/2024 6:13 PM EDT [facility] TIBC 183(L) 250 - 435 ug/dL 11/30/2024 6:13 PM EDT [facility] % Saturation 34 % 11/30/2024 6:13 PM EDT [facility] UIBC 120 11/30/2024 6:13 PM EDT [facility] Blood Venipuncture / Unknown 11/30/2024 3:40 AM EDT 11/30/2024 4:09 AM EDT us Laura Batista MD LAB BLOOD ORDERABLES Final Res ult Performing Organization Address City/[facility]/ZIP Co de Phone Number [facility] [address] [phone] * aPTT (11/30/2024 3:40 AM EDT) aPTT 27.7 22.0 - 32.0 seconds 11/30/2024 4:32 AM EDT [facility] Blood Venipuncture / Unknown 11/30/2024 3:40 AM EDT 11/30/2024 4:10 AM EDT us Huey Hurtado MD LAB BLOOD ORDERABLES Final Resul t Performing Organization Address [facility] Phone Number [facility] [address] [phone] * (ABNORMAL) Prothrombin time/INR (11/30/2024 3:40 AM EDT) Protime 12.9(H) 9.0 - 12.0 seconds 11/30/2024 4:32 AM EDT [facility] INR 1.17(H) 0.80 - 1.10 11/30/2024 4:32 AM EDT [facility] Comment: Recommended therapeutic ranges [...] ORDERABLES Final Resul t Performing Organization Address [facility] Co de Phone Number [facility] [address] [phone] * (ABNORMAL) Uric acid (11/30/2024 3:40 AM EDT) Uric Acid 11.2(H) 2.5 - 6.2 mg/dL 11/30/2024 12:18 PM EDT [facility] Blood Venipuncture / Unknown 11/30/2024 3:40 AM EDT 11/30/2024 4:09 AM EDT us Hill Boo MD LAB BLOOD ORDERABLES Final Resu lt [facility] [address] [phone] * (ABNORMAL) Lactate dehydrogenase (LDH) (11/30/2024 3:40 AM EDT) LDH 261(H) 125 - 220 U/L 11/30/2024 12:18 PM EDT [facility] Blood Venipuncture / Unknown 11/30/2024 3:40 AM EDT 11/30/2024 4:09 AM EDT us Hill Boo MD LAB BLOOD ORDERABLES Final Resu lt Performing Organization Address [facility]/ZIP Co de Phone Number [facility] [address] [phone] * Iron, serum (11/30/2024 3:40 AM EDT) Iron 64 50 - 170 ug/dL 11/30/2024 8:10 AM EDT [facility] Blood Venipuncture / Unknown 11/30/2024 3:40 AM EDT 11/30/2024 4:09 AM EDT us Timothy Bai MD LAB BLOOD ORDERABLES Final Result Performing Organization Address City/[facility]/ZIP Co de Phone Number [facility] [address] [phone] * Folate, Serum (11/30/2024 3:40 AM EDT) Folate 7.0 7.0 - 31.4 ng/mL 11/30/2024 6:08 PM EDT [facility] Blood Venipuncture / Unknown 11/30/2024 3:40 AM EDT 11/30/2024 4:09 AM EDT us Laura Batista MD LAB BLOOD ORDERABLES Final Res ult [facility] [address] [phone] * Vitamin B12 (11/30/2024 3:40 AM EDT) Vitamin B12 678 213 - 816 pg/mL 11/30/2024 8:10 AM EDT [facility] Blood Venipuncture / Unknown 11/30/2024 3:40 AM EDT 11/30/2024 4:09 AM EDT us Timothy Bai MD LAB BLOOD ORDERABLES Final Result Performing Organization Address [facility] de Phone Number [facility] [address] [phone] * EKG-SCANNED (11/30/2024) Only the most recent of3 resultswithin the time period is included. Narrative 11/30/2024 Ordered by an unspecified provider. us Default Scanning Provider SCAN ORDERS Final Result from Last 3 Months Insurance [facility] Advance Directives For more information, please contact: [phone] * Full Code (Latest Code Status on File) Date Activated Date Inactivated Comments 11/30/2024 2:06 AM 12/14/2024 6:30 PM Care Teams Osha Inspector Relationship Specialty Start Date End Date Provider, Not In System [place] PCP - General 12/14/24
--- OUTSIDE RECORDS SUMMARY | 2025-01-31 08:26 | XMS_ITS | Clinical Summary ---
Author Organization Healthcare Address [address] [place] [address] Care Team Providers Care Private Branch Exchange Operator Name Role Phone Sary Brannon CAN VACUUM TESTER Unavailable [phone] Monika Hernandez APRN Primary Care Provider [phone] Allergies No known active allergies Medications bisoprolol [...] 3 INJECTIONS DAILY 1 Active HYDROcodone-acetam inophen (Sullivan) 10-325 MG tablet 3 Active spironolactone (Aldactone) 25 MG tablet Take 25 mg by mouth 1 (one) time each day. 3 Active furosemide (Lasix) 40 MG tablet Take by mouth 2 (two) times a day. 3 Active Insulin Lispro (HUMALOG IJ) Inject as directed. Active dapagliflozin (Farxiga) 5 MG tabletIndications: CKD (chronic kidney disease) stage 2, GFR 60-89 ml/min,Microalbumi ruperto,Coronary artery disease involving [place] heart with angina pectoris and documented spasm, [...] Type Department Care Team Description 01/19/2025 Telephone [facility] [address] [address] Jessica Simms Appointment (scheduling) 01/07/2025 Telephone [facility] [address] [address] Kasey Dye Referral - Liver Txp 01/03/2025 Community Orders Community Practice [address] [place] [address] Sary Brannon, ÁNGEL from Last 3 Months [...] Description 02/22/2025 7:45 AM EDT Clinical Support [facility] [address] [place] [address] 02/22/2025 9:20 AM EDT Office Visit [facility] [address] [place] [address] Ollie Calvo MD [address] [place] [address] 02/22/2025 10:00 AM EDT Office Visit [facility] [address] [place] [address] Surgeon, 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 Health Maintenance Due Date [...] 06/04/2022 01/02/2022, 11/21/2021 [facility]-Depression Screening 01/02/2023 01/02/2022 [id number] Vaccine (4 - season) 2024 05/13/2021, 04/15/2021, 11/08/2020 [facility]-Influenza Vaccine (#1) 03/28/202505/15, 04/25/2019, 05/01/2018, Additional history exists [facility]-Pneumococcal Vaccine: [...] Venous blood specimen / Unknown 01/03/2025 Result [facility] Provider MD LAB BLOOD ORDERABLES Afsaneh l Result * Sodium, Plasma (01/03/2025) Only the most recent of2 resultswithin the time period is included. External Sodium 144 mmol/L Blood Venous blood specimen / Unknown 01/03/2025 Result [facility] Provider LAB BLOOD ORDERABLES Afsaneh l Result * Albumin, Plasma (01/03/2025) Only the most recent of2 resultswithin the time period is included. External Albumin 3.6 g/dL Blood Venous blood specimen / Unknown 01/03/2025 Result [facility] Provider LAB BLOOD ORDERABLES Afsaneh l Result * Total Bilirubin, Plasma (12/14/2024) External Bilirubin Total 0.9 mg/dL Blood Venous blood specimen / Unknown 12/14/2024 us Historical Provider MD LAB BLOOD ORDERABLES Afsaneh l Result * Prothrombin Time/INR (11/30/2024) External Prothrombin Time (PT) 12.9 External INR - Internormal Ratio 1.17 Blood Venous blood specimen / Unknown 11/30/2024 Result [facility] Historical Provider MD LAB BLOOD ORDERABLES Afsaneh [...] PM EDT 01/24/2016 6:17 PM EDT Result [facility] Sherri Adkins APRN LAB BLOOD ORDERABLES Final Result [facility] from Last 3 Months or Most Recently Relevant to Health Maintenance Insurance [facility] MEDICAID [employer] MEDICARE [facility] MEDICAID Care Teams Private Branch Exchange Operator Relationship Specialty Start Date End Date Monika Hernandez APRN [address] [facility] [place] [address] PCP - General 01/19/25 Sary Brannon APRN [address] [facility] [address] [place] [address] Referring Physician Gastroenterology 01/07/25
--- OUTSIDE RECORDS SUMMARY | 2025-01-31 08:26 | XMS_ITS | Encounter Summary ---
Author Organization Healthcare Address [address] [place] [address] Care Team Providers Care Animal Care Worker Name Role Phone Larry Bedolla MD Primary Care Provider + [phone] Sary Brannon OUTSIDE REPAIRER SPECIAL Unavailable [phone] Monika Hernandez APRN Primary Care Provider [phone] Encounter Details Date Type Department Care Team (Late st Contact Info) Description 01/03/2025 Community [facility] Community Practice [address] [place] [address] Sary Brannon, OUTSIDE REPAIRER SPECIAL [address] [place], [place] [id number] Social History Tobacco Use Types Packs/Day Years [...] Description 02/22/2025 7:45 AM EDT Clinical Support [facility] [address] [facility] [address] [place] [address] 02/22/2025 9:20 AM EDT Office Visit [facility] [address] [place] [address] Ollie Calvo MD [address] [place] [address] 02/22/2025 10:00 AM EDT Office Visit [facility] [address] [place] [address] Surgeon, 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 documented as of this encounter Visit Diagnoses Not on filedocumented in this encounter Additional Health Concerns Assessment Noted Time A fall risk assessment has been complete d for the patient 01/02/2022 1:17 PM EDT A Body Mass Index follow-up plan has been documented for the patient 11/13/2022 11:41 AM EDT documented as of this encounter Care Teams Animal Care Worker Relationship Specialty Start Date End Date Larry Bedolla MD [address] [place] [address] PCP - General 12/08/20 01/18/25 Monika Hernandez APRN [address] [place] [address] PCP - General 01/19/25 Sary Brannon APRN [address] [facility] [address] [place] [address] Referring Physician Gastroenterology 01/07/25 documented as of this encounter
--- OUTSIDE RECORDS SUMMARY | 2025-01-31 08:26 | XMS_ITS | Clinical Summary ---
Author Organization [facility] [place] [address] Care Team Providers Care Wireline Field Operator Name Role Phone Unavailable Primary Care Provider [...] Vaccine (2023-2 5 season) 2024 Influenza Vaccine (#1) 2025 Hepatitis B Vaccine Aged Out No longe r eligible based on patient's age to complete this topic Meningococcal B Vaccine Aged Out No l onger eligible based on patient's age to complete this topic
--- OUTSIDE RECORDS SUMMARY | 2025-01-31 08:26 | XMS_ITS | Data Portability ---
Author Organization [place] - [facility] [place] ADMIN Address [address] [place] [address] Care Team Providers Care Cyber Intel Planner Name Role Phone SARI MIX Primary Care [...] pain: Continue Zofran as needed. EGD/colonoscopy scheduled. [email or web address] Not available 05/14/2023 16:14:25 Plan of Treatment Reminders Order Date Submit Date Provider Last Modified By Organization Details Last Modified Time Details Appointments None recorded. Lab CBC 2022 023 [facility], [address], [address], [place], [address], 3 07:14:09 CMP, serum or plasma 2022 023 [facility], [address], [place], [address], 3 07:14:08 PT/INR 2022 023 [facility], [address], [place], [address], 3 07:14:10 afp (alpha-feto protein) tumor marker, serum or plasma 2022 023 [facility], [address], [address], [place], [address], 3 07:14:12 JEANA (antinuclea r antibodies) screen, serum 2022 023 A[facility], [address], [address], [place], [address], 3 07:14:14 mitochondri al Ab, serum 2022 023 [email or web address] [facility], [address], [place], [address], 3 08:37:53 smooth muscle Ab, serum 2022 023 A[facility], [address], [place], [address], 3 07:14:11 igg, quantitativ e, serum 2022 023 [facility], [address], [place], [address], 3 07:14:15 hepatitis B surface Ab, quantitativ e, serum 2022 023 [facility], [address], [place], [address], 3 07:14:13 Referral None recorded. Procedures None recorded. Surgeries None recorded. Imaging US, liver [address] ([facility]ly [facility]), [address], [place], [address], 15:31:08 Medication Orders Xifaxan 550 mg tablet 2022 023 [email or web address] [facility], [address] [facility] [address], [place], [place], [id number], 16:07:45 Patient TargetsNo targets recorded. Patient InstructionsNo instructions recorded. Reason for Referral None Reported. Results Created Date Observation Date Name Description Value Unit Range Abnormal Flag Note LastModifiedBy Organization Detail LastModifiedTime 05/14/2005/15/2023 COMP. METAB OLIC PANEL (14) glucose 292 mg/dL 70-99 above high normal Not Available [facility] ([facility]) [address], [place], [address], 05/16/2023 07:14:08 05/14/2005/15/2023 COMP. METAB OLIC PANEL (14) BUN 39 mg/dL 8-27 above high normal Not Available [facility] ([facility]) [address] [facility] [place], [address], 05/16/2023 07:14:08 05/14/20 23 05/15/2023 COMP. METAB OLIC PANEL (14) creatinine 1.73 mg/dL 0.57-1 .00 above high normal Not Available [facility] ([facility]) [address] [facility] [place], [address], 05/16/2023 07:14:08 05/14/20 23 05/15/2023 COMP. METAB OLIC PANEL (14) eGFR 33 mL/mi n/1.7 3 >59 below low normal Not Available [facility] ([facility]) [address] [facility] [place], [address], 05/16/2023 07:14:08 05/14/20 23 05/15/2023 COMP. METAB OLIC PANEL (14) BUN/creatini ne ratio 23 12-28 Not Available [facility] ([facility]) [address] [facility] [place], [address], 05/16/2023 07:14:08 05/14/2005/15/2023 COMP. METAB OLIC PANEL (14) sodium 143 mmol/ L 134-14 4 Not Available [facility] ([facility]) [address] [facility] [place], [address], 05/16/2023 07:14:08 05/14/20 23 05/15/2023 COMP. METAB OLIC PANEL (14) potassium 4.8 mmol/ L 3.5-5. 2 Not Available [facility] ([facility]) [address] [facility] [place], [address], 05/16/2023 07:14:08 05/14/20 23 05/15/2023 COMP. METAB OLIC PANEL (14) chloride 103 mmol/ L 96-106 Not Available [facility] ([facility]) [address] [facility] [place], [address], 05/16/2023 07:14:08 05/14/20 23 05/15/2023 COMP. METAB OLIC PANEL (14) carbon dioxide, total 28 mmol/ L 20-29 Not Available [facility] ([facility]) [address] [facility], [place], [address], 05/16/2023 07:14:08 05/14/20 23 05/15/2023 COMP. METAB OLIC PANEL (14) calcium 9.2 mg/dL 8.7-10 .3 Not Available [facility] ([facility]) [address] [facility], [place], [address], 05/16/2023 07:14:08 05/14/20 23 05/15/2023 COMP. METAB OLIC PANEL (14) protein, total 7.4 g/dL 6.0-8. 5 Not Available [facility] ([facility]) [address] [facility], [place], [address], 05/16/2023 07:14:08 05/14/20 23 05/15/2023 COMP. METAB OLIC PANEL (14) albumin 4.1 g/dL 3.9-4. 9 Not Available [facility] ([facility]) [address] [facility], [place], [address], 05/16/2023 07:14:08 05/14/20 23 05/15/2023 COMP. METAB OLIC PANEL (14) globulin, total 3.3 g/dL 1.5-4. 5 Not Available [facility] ([facility]) [address] [facility], [place], [address], 05/16/2023 07:14:08 05/14/20 23 05/15/2023 COMP. METAB OLIC PANEL (14) A/G ratio 1.2 1.2-2. 2 Not Available [facility] ([facility]) [address] [facility], [place], [address], 05/16/2023 07:14:08 05/14/20 23 05/15/2023 COMP. METAB OLIC PANEL (14) bilirubin, total 0.7 mg/dL 0.0-1. 2 Not Available [facility] ([facility]) [address] [facility], [place], [address], 05/16/2023 07:14:08 05/14/2005/15/2023 COMP. METAB OLIC PANEL (14) alkaline phosphatase 144 IU/L 44-121 above high normal Not Available [facility] ([facility]) [address] [facility], [place], [address], 05/16/2023 07:14:08 05/14/2005/15/2023 COMP. METAB OLIC PANEL (14) AST (SGOT) 39 IU/L 0-40 Not Available [facility] ([facility]) [address] [facility], [place], [address], 05/16/2023 07:14:08 05/14/2005/15/2023 COMP. METAB OLIC PANEL (14) ALT (SGPT) 27 IU/L 0-32 Not Available [facility] ([facility]) [address] [facility], [place], [address], 05/16/2023 07:14:08 05/14/2005/15/2023 CBC, PLATE LET, NO DIFFE RENTI AL WBC 3.8 x10e3 /uL 3.4-10 .8 Not Available [facility] ([facility]) [address] [facility], [place], [address], 05/16/2023 07:14:09 05/14/2005/15/2023 CBC, PLATE LET, NO DIFFE RENTI AL RBC 3.98 x10e6 /uL 3.77-5 .28 Not Available [facility] ([facility]) [address] [facility], [place], [address], 05/16/2023 07:14:09 05/14/2005/15/2023 CBC, PLATE LET, NO DIFFE RENTI AL hemoglobin 12.9 g/dL 11.1-1 5.9 Not Available [facility] ([facility]) [address] [facility], [place], [address], 05/16/2023 07:14:09 05/14/2005/15/2023 CBC, PLATE LET, NO DIFFE RENTI AL hematocrit 39.7 % 34.0-4 6.6 Not Available [facility] ([facility]) [address] [facility], [place], [address], 05/16/2023 07:14:09 05/14/2005/15/2023 CBC, PLATE LET, NO DIFFE RENTI AL MCV 100 fL 79-97 above high normal Not Available [facility] ([facility]) [address] [facility], [place], [address], 05/16/2023 07:14:09 05/14/2005/15/2023 CBC, PLATE LET, NO DIFFE RENTI AL MCH 32.4 pg 26.6-3 3.0 Not Available [facility] ([facility]) [address] [facility], [place], [address], 05/16/2023 07:14:09 05/14/2005/15/2023 CBC, PLATE LET, NO DIFFE RENTI AL MCHC 32.5 g/dL 31.5-3 5.7 Not Available [facility] ([facility]) [address] [facility], [place], [address], 05/16/2023 07:14:09 05/14/2005/15/2023 CBC, PLATE LET, NO DIFFE RENTI AL RDW 14.1 % 11.7-1 5.4 Not Available [facility] ([facility]) [address] [facility], [place], [address], 05/16/2023 07:14:09 05/14/2005/15/2023 CBC, PLATE LET, NO DIFFE RENTI AL platelets 81 x10e3 /uL 150-45 0 alert low Plate let count verif ied by exami natio n of perip heral blood smear . Not Available [facility] ([facility]) [address] [facility], [place], [address], 05/16/2023 07:14:09 05/14/2005/15/2023 CBC, PLATE LET, NO DIFFE RENTI AL hematology comments: NOTE: Verif ied by micro scopi c exami natio n. Not Available [facility] ([facility]) [address] [facility], [place], [address], 05/16/2023 07:14:09 05/14/2005/15/2023 CBC, PLATE LET, NO DIFFE RENTI AL NRBC CLINICAL STUDY MANAGER Not Available [facility] ([facility]) [address] [facility], [place], [address], 05/16/2023 07:14:09 05/14/2005/15/2023 PROTH [place]BI N TIME [...] range 2.5 - 3.5 Not Available [facility] ([facility]) [address] [facility], [place], [address], 05/16/2023 07:14:10 05/14/2005/15/2023 PROTH [place]BI N TIME (PT), SERIA L prothrombin time 11.9 sec 9.1-12 .0 Not Available [facility] ([facility]) [address] [facility], [place], [address], 05/16/2023 07:14:10 05/14/2005/15/2023 PROTH [place]BI N TIME (PT), SERIA L pdf . Not Available [facility] ([facility]) [address] [facility], [place], [address], 05/16/2023 07:14:10 05/14/2005/15/2023 ANTI- AIXA H MUSCL [...] bilia ry cirrh osis. Not Available [facility] ([facility]) [address] [facility], [place], [address], 05/16/2023 07:14:11 05/14/2005/15/2023 ANTI- AIXA H MUSCL E/TAHIR OCHON D. mitochondria l (M2) antibody <20.0 units 0.0-20 .0 Negat marnie 0.0 - 20.0 Equiv ocal 20.1 - 24.9 Posit marnie >24.9 Mitoc hondr ial (M2) Antib odies are found in 90-96 % of patie nts with prima ry bilia ry cirrh osis. Not Available [facility] ([facility]) [address] [facility], [place], [address], 05/16/2023 07:14:11 05/14/2005/15/2023 AFP, SERUM , TUMOR MARKE R AFP, serum, tumor marker 3.0 NG/mL 0.0-9. 2 Jeimy Diagn ostic s Elect jeimy milum inesc ence Immun oassa y (ECLI A) Value s obtai esa with diffe rent assay metho ds or kits canno t be used inter starks eably . Resul ts canno t be inter prete d as absol [place] evide nce of the prese nce or absen ce of cl[place]ette [place] se. This test is not inter preta ble in pregn ant femal es. Not Available [facility] ([facility]) [address] [facility], [place], [address], 05/16/2023 07:14:12 05/14/2005/15/2023 HEPAT ITIS B SURF AB QUANT hepatitis B surf Ab quant <3.1 mIU/m L immuni ty>9.9 below low normal Statu s of Immun ity Anti- HBs Level ----- ----- ----- --- ----- ----- ---- Incon siste nt with Immun ity 0.0 - 9.9 Consi stent with Immun ity >9.9 Not Available [facility] ([facility]) [address] [facility], [place], [address], 05/16/2023 07:14:13 05/14/2005/15/2023 JEANA W/REF KISHOR IF POSIT MARNIE JEANA direct POSITI VE negati ve abnormal Not Available [facility] ([facility]) [address] [place], [address], 05/16/2023 07:14:14 05/14/2005/15/2023 JEANA W/REF KISHOR IF POSIT MARNIE anti-DNA (ds) Ab qn <1 IU/mL 0-9 Negat marnie <5 Equiv ocal 5 - 9 Posit marnie >9 Not Available [facility] ([facility]) [address] [place], [address], 05/16/2023 07:14:14 05/14/2005/15/2023 JEANA W/REF KISHOR IF POSIT MARNIE speed belt sander antibodies <0.2 ai 0.0-0. 9 Not Available [facility] ([facility]) [address] [place], [address], 05/16/2023 07:14:14 05/14/2005/15/2023 JEANA W/REF KISHOR IF POSIT MARNIE perez antibodies <0.2 ai 0.0-0. 9 Not Available [facility] ([facility]) [address] [place], [address], 05/16/2023 07:14:14 05/14/2005/15/2023 JEANA W/REF KISHOR IF POSIT MARNIE antisclerode rma-70 antibodies 0.3 ai 0.0-0. 9 Not Available [facility] ([facility]) [address] [place], [address], 05/16/2023 07:14:14 05/14/2005/15/2023 JEANA W/REF KISHOR IF POSIT MARNIE sjogren's anti-ss-A <0.2 ai 0.0-0. 9 Not Available [facility] ([facility]) [address] [place], [address], 05/16/2023 07:14:14 05/14/2005/15/2023 JEANA W/REF KISHOR IF POSIT MARNIE sjogren's anti-ss-B <0.2 ai 0.0-0. 9 Not Available [facility] ([facility]) [address] [place], [address], 05/16/2023 07:14:14 05/14/2005/15/2023 JEANA W/REF KISHOR IF POSIT MARNIE antichromati n antibodies <0.2 ai 0.0-0. 9 Not Available [facility] ([facility]) [address] [place], [address], 05/16/2023 07:14:14 05/14/2005/15/2023 JEANA W/REF KISHOR IF POSIT MARNIE anti-trisha-1 <0.2 ai 0.0-0. 9 Not Available [facility] ([facility]) [address] [place], [address], 05/16/2023 07:14:14 05/14/2005/15/2023 JEANA W/REF KISHOR IF POSIT MARNIE anti-centrom ere B antibodies 2.7 ai 0.0-0. 9 above high normal Not Available [facility] ([facility]) [address] [facility], [place], [address], 05/16/2023 07:14:14 05/14/2005/16/2023 JEANA W/REF KISHOR IF POSIT MARNIE complement C3, serum 109 mg/dL 82-167 Not Available [facility] ([facility]) [address] [facility], [place], [address], 05/16/2023 07:14:14 05/14/2005/16/2023 JEANA W/REF KISHOR IF POSIT MARNIE complement C4, serum 20 mg/dL 12-38 Not Available [facility] ([facility]) [address] [facility], [place], [address], 05/16/2023 07:14:14 05/14/2005/15/2023 IMMUN OGLOB ULIN G, QN, SERUM immunoglobul in g, qn, serum 1562 mg/dL 586-16 02 Not Available [facility] ([facility]) [address] [facility], [place], [address], 05/16/2023 07:14:15 06/06/2006/06/2023 US, liver No observ ation record ed. [facility] [address], [place], [address], 06/13/2023 12:55:07 Result Notes None recorded. Problems Name Problem SNOMED Code Status Onset Date Resolution Date Notes Provider Name and Address Organization Details Recorded Time Stage 3 hepatic fibrosis 4216341533058 9109 Active 2022 Raul Kincaid PA-C [address], [place], [address] , [facility] - [place] - [place] 04/13/202 3 08:26:45 Anticentro mere antibody pattern 478202769 Active 2022 Raul Kincaid PA-C [address], [place], [place], [address] [place] [address] , [facility] & [place] 3 08:27:15 Metabolic dysfunctio n-associat ed steatohepa titis 660902705 Active 2022 Raul Kincaid PA-C [address], [place] [address] , [facility] & [place] 3 08:28:41 Hepatic encephalop athy 53379912 Active 2022 Raul Kincaid PA-C [address], [place] [address] , [facility] & [place] 3 10:58:50 Anti-nucle ar factor detected 088978480 Active 2022 Raul Kincaid PA-C [address], [place] [address] , [facility] & [place] 3 16:09:02 Problem Notes None recorded. Medical [...] in Arterial blood by Pulse oximetry Systolic And Diastolic Provider Name and Address Organization Details Last Updated DateTime 3 [address]1616.9 4 g 97.4 [degF] 32.6 kg/m2 167.64 cm 84 /min 91 /min 98 % 98 % 131/72 mm[Hg] Luz Maria Pike [facility] & [place] 10:32:47 Social History Question Answer Notes LastModified by OrganAqueSysat ion Details LastModified Time Tobacco Smoking Status Never Smoker Luz Maria ayala, [facility] & [place] 05/14/2023 10:31:56 What Is Your Level Of Caffeine Consumption? Moderate [email or web address] Information not available 05/14/2023 Sex: Unknown Functional Status Question Answer Note LastModified by Organizat ion Details LastModified Time Do you use any illicit or recreational drugs? No [email or web address] Information not available 05/14/2023 Do you or have you ever used any other forms of tobacco or nicotine? No [email or web address] Information not available 05/14/2023 What is your level of alcohol consumption? Occasional [email or web address] Information not available 05/14/2023 Mental Status None [...] SNOMED-CT Code Diagnosis ICD10 Code Diagnosis Note [id number] Raul Kincaid PA-C [facility] [address] [address] 05/14/2023 10:00:22 05/14/2023 11:33:43 Stage 3 hepatic fibrosis 8090781554 2606381 K74.02 Hepatic encephalopathy 14042741 K76.82 History of polyp of colon 169699573 Z86.010 Anti-nucle ar factor detected 045908695 R76.8 Anticentro mere antibody pattern 616351249 R76.8 Health Concerns Section Related Observation LastModified by Organization Detai ls LastModified Time None Recorded Concern Status LastModified by Organization Details LastModified Time None Recorded Advance Directives Directive None Recorded Payers Insurance Date Sequence Insurance Name Policy Number Policy Deng Covered Member ID Deng Member ID Guarantor Name 02/14/2024 1 [employer] (MEDICARE REPLACEMENT/A DVANTAGE - PPO) Mary Coronel [id number] Mary Coronel 02/14/2024 2 [employer] [place] ([place] DVANTAGE - HMO) Mary Coronel [id number] Mary Coronel Notes Date Note Type Note [...] last appointment for colonoscopy. Raul Kincaid PA-C [address], [place], [address], [facility] - [place] & [place] 05/14/2023 16:14:59 OBGyn Episode No OBEpisode recorded.
--- OUTSIDE RECORDS SUMMARY | 2025-01-31 08:26 | XMS_ITS | Encounter Summary ---
Author Organization Healthcare Address [address] [place] [address] Care Team Providers Care Operations Supervisor Name Role Phone Larry Bedolla MD Primary Care Provider [phone] Sary Brannon APRN Unavailable [phone] Monika Hernandez APRN Primary Care Provider [phone] Reason for Referral * Consultation (Routine) - Closed Specialty Diagnoses / Procedures Referred By Mayela may Referred To Contact Hepatology Diagnoses Bilious vomiting with nausea Anticentromere antibodies present Thrombopenia (CMS/HCC) Stage 3 hepatic fibrosis Raul Kincaid PA [address] [place] [address] Phone: tel: fax: Referral ID Status Reason Start Date Expiration Date V isits Requested Visits Authorized [id number] Closed Specialty Services Required 09/27/2021 03/29/2023 1 1 Encounter Details Date Type Department Care Team (Late st Contact Info) Description 09/27/2021 Community [facility] [address] [place] [address] Raul Kincaid PA [address] [place] [id number] Bilious vomiting with nausea (Primary Dx); [...] Description 02/22/2025 7:45 AM EDT Clinical Support [facility] [address] [place] [address] 02/22/2025 9:20 AM EDT Office Visit [facility] [address] [place] [address] Ollie Calvo MD [address] [place] [address] 02/22/2025 10:00 AM EDT Office Visit [facility] [address] [place] [address] Surgeon, 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 Scheduled Referrals Name Type [...] fibrosis documented in this encounter Care Teams Operations Supervisor Relationship Specialty Start Date End Date Larry Bedolla MD [address] [place] [address] PCP - General 12/08/20 01/18/25 Monika Hernandez APRN [address] [place] [address] PCP - General 01/19/25 Sary Brannon APRN [address] [place] [address] Referring Physician Gastroenterology 01/07/25 documented as of this encounter
--- OUTSIDE RECORDS SUMMARY | 2025-01-31 08:26 | XMS_ITS ---
Author Organization [facility] Address [address] [place] [address] Care Team Providers Care Benzol Still Operator Name Role Phone Sary Brannon APRN Unavailable [phone] Monika Hernandez APRN Primary Care Provider [phone] Transplant Episode Liver Candidate [facility] ([place], [place]) - JOSÉ LUIS Referred on 01/07/2025 Marked as Active on 01/07/2025 Liver CoordinatorJessica Simms Fax: N/A Email: N/A Care Team Name Role Phone Fax Email Jessica Simms Liver Coordinator [phone] N/A N/A Sary Brannon APRN Referring Physician [phone] N/A Gem Clark Chain Maker [employer] [phone] N/A N/A Edil Kiran MD Surgeon [phone] N/A Events Pre-Transplant Referred: 01/07/2025 Appointments (01/01/2025 - 03/03/2025) When With Visit Type Description 02/22/2025 Transplant - Surgeon, T Initial Clinic Evaluation 02/22/2025 Transplant LAB 02/22/2025 Transplant - Theodora Calvo Initial Clinic Evaluation
[2025-01-31 08:27] LABS: Microscopic, Urine URINE MICROSCOPIC (MICROSCOPIC)
[2025-01-31 08:46] LABS: Hematocrit 31.4 % (37.0-47.0); Hemoglobin 10.3 g/dL (12.2-16.2); Immature Granulocytes % 0.6 %; Mean Corpuscular HGB Conc 32.8 g/dL (31.8-35.4); Mean Corpuscular Hemoglobin 31.2 pg (27.0-31.2); Mean Corpuscular Volume 95.2 fl (81-99); Nucleated Red Blood Cells % 0 %; Platelet Count 55 K/mm3 (142-424); Red Blood Count 3.30 M/mm3 (4.20-5.40); Red Cell Distribution Width-SD 52.5 fL
[2025-01-31 08:59] LABS: Bilirubin,Urine Negative (Negative); Color,Urine YELLOW (Yellow); Glucose,Urine (UA) Negative (Negative); Ketones,Urine TRACE (Negative); Leukocyte Esterase,Urine Negative (Negative); PH,Urine 5.5 (5.0-8.5); Protein,Urine Negative (Negative); Specific Gravity, Urine 1.025 (1.005-1.030); Urobilinogen,Urine 0.2 EU/dl (0.2)
[2025-01-31 09:16] LABS: White Blood Count 1.7 K/mm3 (4.8-10.8)
[2025-01-31 09:49] LABS: Total Cells Counted 100
[2025-01-31 09:50] LABS: RBC Morphology Normal
[2025-01-31 10:23] LABS: Albumin Level 3.3 g/dl (3.5-5.0); Anion Gap 15.0 mEq/L (5-15); Blood Urea Nitrogen 35 mg/dl (7-17); Calcium 8.7 mg/dl (8.4-10.2); Carbon Dioxide 28 mmol/L (22.0-30.0); Chloride 101 mmol/L (98-107); Creatinine,Serum 3.10 mg/dl (0.52-1.04); Estimated Glomerular Filt Rate 15 ml/min (>60); GFR (African American) 18 ML/MIN (>60); Glucose 101 mg/dl (74-100); Iron 58 ug/dL (37-170); Phosphorous 3.4 mg/dl (2.5-4.5); Potassium 4.0 mmoL/L (3.5-5.1); Sodium 140 mmol/L (136-145)
[2025-01-31 10:27] LABS: Total Iron Binding Capacity 189 ug/dL (265-497)
[2025-01-31 10:28] LABS: Ferritin 186 ng/ml (11.1-264)
== END 2025-01-31 23:59 | disposition home or self-care (01) ==
LOC: LAB 08:19
PROVIDERS: PCP Family Medicine; Visit Provider Internal Medicine Nephrology
DX: D64.9 Anemia, unspecified (principal); N17.9 Acute kidney failure, unspecified
CPT/HCPCS: 36415; 80069; 81001; 82570; 82728; 83540; 83550; 84156; 85007; 85025; 85027

== ENCOUNTER 2025-02-28 08:25 | Outpatient (CLI) | payer MEDICARE, MEDICAID, SELFPAY ==
--- OUTSIDE RECORDS SUMMARY | 2018-11-16 06:00 | XMS_ITS | Continuity of Care Document ---
Author Organization [facility] Address [address] [place] [phone] Phone Care Team Providers Care Airport Maintenance Laborer Name Role Phone Dane Pink MD Unavailable [...] Provider Providers Copied on Encounter Connor [place] [facility], [address] [place] [address], [id number], tel:[phone] JENNIFER Torres [place] No Information 9 Apryl Vela. [address] [place] [address], [id number] , . tel:[phone] OFFICE/OUTPA TIENT VISIT, EST Connor [place] [facility], [address] [place] [address], [address] [place] [address], tel:[phone] [place] inflammation ck OS (chief complaint) Iritis, recurrent, left eye 9 Apryl Vela. [address] [place] [address], [address] [place] [address] , . tel:[phone] Referring Provider: Self Referred Joes C Connor [place] [facility], [address] [place] [address], [id number], tel:[phone] JENNIFER Torres [place] Anterior Seg ck (chief complaint) Iritis, recurrent, left eye 9 Apryl Vela. [address] [place] [address], [id number] , . tel:[phone] Referring Provider: Maria Teresa Santos, [employer] [address] [place] [address], [facility]. tel:[phone] Family History Family Member Type Diagnosis Age At Onset Problem (finding) Family history of Diabe reynold mellitus Problem (finding) Family history of Cardi ovascular disease Problem (finding) Family history of glauc haroon Payers Payer name Insurance type Covered green party ID Authoriza tion(s) Medicare [facility] [id number] Social History Type Description Quantity Date Captured [...]
--- OUTSIDE RECORDS SUMMARY | 2025-02-22 09:20 | XMS_ITS | Encounter Summary ---
Author Organization Healthcare Address [address] [place] [address] Care Team Providers Care Scale Installer Name Role Phone Sary Brannon SPEECH CLINICIAN Unavailable [phone] Monika Hernandez APRN Primary Care Provider [phone] Reason for Referral * Consultation (Routine) - Authorized Specialty Diagnoses / Procedures Referred By Contac t Referred To Contact Physical Therapy Diagnoses End-stage liver disease (CMS/HCC) Ollie Calvo MD [address] [address] Phone: tel: fax: Referral ID Status Reason Start Date Expiration Date Visits Requested Visits Authorized [id number] Authorized Consult and Treat 02/22/2025 08/24/2026 1 1 * Imaging (Routine) - Pending Review Specialty Diagnoses / Procedures Referred By Contmazin t Referred To Contact Diagnoses End-stage liver disease (CMS/HCC) Procedures US Abdomen Ollie Calvo MD [address] [address] Phone: tel: fax: Referral ID Status Reason Start Date Expiration Date V isits Requested Visits Authorized [id number] Pending Review 02/22/2025 08/24/2026 1 1 * Imaging (Routine) - Pending Review Specialty Diagnoses / Procedures Referred By Mayela may Referred To Contact Gastroenterology Diagnoses End-stage liver disease (CMS/HCC) Procedures EGD Ollie Calvo MD [address] [address] Phone: tel: fax: Referral ID Status Reason Start Date Expiration Date Visits Requested Visits Authorized [id number] Pending Review Specialty Services Required 02/22/2025 08/24/2026 1 1 Reason for Visit * Reason Comments Pre-Liver Txp Follow-up * Consultation (Routine) - Closed Specialty Diagnoses / Procedures Referred By Mayela may Referred To Contact Transplant Diagnoses End-stage liver disease (CMS/HCC) Edil Kiran MD [address] [facility] [address] [place] [address] Phone: tel: fax: [facility] [place] [address] [address] Phone: tel: fax: Referral ID Status Reason Start Date Expiration Date V isits Requested Visits Authorized [id number] Closed Specialty Services Required 01/19/2025 07/21/2026 1 1 Encounter Details Date Type Department Care Team (Late st Contact Info) Description 02/22/2025 9:20 AM EDT Office Visit [facility] Trans[facility] Center [facility] [address] [phone] Ollie Calvo MD [address] [address] End-stage liver disease (CMS/HCC) (Primary [...] Txp Follow-up Edil Kiran MD [address] [address] [facility] Patient is a 64 year old female with a past medical history of decompensated cirrhosis secondary toMASLD. Patient presents today for initial transplant consultation. Patient was initially diagnosed with cirrhosis around 3 years ago. She was hospitalized in [facility] for hepatorenal syndrome and was treated with [...] as well. She then followed with her Electric System Operator with Holter monitor and Amio was discontinued [...] 8 week repeat Colonoscopy: performed 01/2021 at [facility] with polypectomy (TA). 1 year repeat [...] TO TEST BID, Disp: , Rfl: HYDROcodone-acetaminophen ([place]) 10-325 MG tablet, , Disp: , Rfl: [...] Appointment [facility] Radiology [address] [place] [address] 03/22/2025 9:00 AM EDT Clinical Support [facility] [place] [address] [place] [address] 03/22/2025 10:30 AM EDT Office Visit [facility] [place] [address] [place] [address] Geronimo Tran MD [address] [facility] [address] [place] [address] Scheduled Orders Name Type Priority [...] documented as of this encounter Care Teams Scale Installer Relationship Specialty Start Date End Date Monika Hernandez APRN [address] [place] [address] PCP - General 01/19/25 Sary Brannon APRN [address] [place] [address] Referring Physician Gastroenterology 01/07/25 documented as of this encounter
--- NOTE | 2025-02-28 08:30 | US_ITS ---
FINAL REPORT TECHNIQUE: Ultrasound images of the abdomen were obtained. CLINICAL HISTORY: Ascites FINDINGS: ABDOMINAL ULTRASOUND COMPLETE: The liver is small with a coarse nodular peripheral margin, probably due to cirrhosis. Moderate ascites is noted. The gallbladder is normal. The common duct is normal. The right kidney measures 9.9 cm in length and is normal in echogenicity without hydronephrosis. The left kidney measures 10.1 cm in length and is normal in echogenicity without hydronephrosis. The spleen is unremarkable. The pancreas is obscured by overlying bowel gas. The aorta is obscured. The vena cava is unremarkable. IMPRESSION: Findings consistent with cirrhosis. Moderate ascites. Reviewed, Interpreted and Dictated by Dre Keenan MD Transcribed by Shara Sanchez Authenticated and [facility]
--- OUTSIDE RECORDS SUMMARY | 2025-02-28 08:30 | XMS_ITS | Encounter Summary ---
Author Organization [facility] Address [address] [place] [address] Care Team Providers Care Medical Billing Coder Name Role Phone Sary Brannon ART GLASS DESIGNER Unavailable [phone] Monika Hernandez APRN Primary Care Provider [phone] Reason for Visit * Reason Comments Appointment Confirmation and rem inders Encounter Details Date Type Department Care Team (Late st Contact Info) Description 02/17/2025 Telephone [facility] Transplant Center [address] [place] [address] Jessica Simms [place] [phone] Appointment (Confirmation and reminders) Social History Tobacco Use Types Packs/Day Years [...] * Telephone Encounter - Jessica Simms - 02/17/2025 9:53 AM EDT Called to confirm New Patient Pre-Liver Initial Clinic Evaluation scheduled for Friday02/22/2025 at 7:30am. Spoke to Ms Coronel - confirmed appointment and receipt of new patient paperwork. Provided reminder of appointment date/time. Reminded to bring ID, insurance information, all medications or current medication list; reminded to bring all completed paperwork. Reminded to bring support person and to wear masks. Reminded that there is no fasting required for labs and to expect a long appointment. Reminded that if applicable to their insurance, there may be a copay due at the time of this appointment. Encouraged a call if they have additional questions or are unable to attend/ need to reschedule. documented in this encounter Plan of Treatment Upcoming Encounters Date Type Department Care Team (Late st Contact Info) Description 03/22/2025 8:00 AM EDT Appointment [facility] Radiology [address] [place] [address] 03/22/2025 9:00 AM EDT Clinical Support [facility] [place] [address] [facility] [address] [place] [address] 03/22/2025 10:30 AM EDT Office Visit [facility] [place] [address] [facility] [address] [place] [address] Geronimo Tran MD [address] [facility] [address] [place] [address] documented as of this encounter Visit Diagnoses Not on filedocumented in this encounter Additional Health Concerns Assessment Noted Time A fall risk assessment has been complete d for the patient 01/02/2022 1:17 PM EDT A Body Mass Index follow-up plan has been documented for the patient 11/13/2022 11:41 AM EDT documented as of this encounter Care Teams Medical Billing Coder Relationship Specialty Start Date End Date Monika Hernandez APRN [address] [place] [address] PCP - General 01/19/25 Sary Brannon APRN [address] [place] [address] [address] [place] [address] Referring Physician Gastroenterology 01/07/25 documented as of this encounter
--- OUTSIDE RECORDS SUMMARY | 2025-02-28 08:30 | XMS_ITS | Referral Summary ---
Author Organization [employer] ([place], [place], [place], [place]) Address [address] [place] [address] Care Team Providers Care Grounding Engineer Name Role Phone Provider, Not In System Primary Care Provider Un available Encounters Date Type Department Care Team Description 11/30/2024 1:43 AM EDT - 12/14/2024 5:30 PM EDT Hospital Encounter [facility] 5B Medical Telemetry Unit 1 [place] [address] Albert Garcia MD Shamsulddin, Haider, MD Zohary, Yasser, MD Majeed, Irfan, MD Edie, Joseph A, Huey Plasencia MD Melena (Primary Dx); Anasarca Discharge Disposition: Home or Self Care 12/06/2024 Telephone [facility] - [place] [address] [place] [address] Mimi Moreno RN Appointment 12/01/2024 8:55 AM EDT Anesthesia Event [facility] Endoscopy 1 [place] [address] Ashtyn Sanchez MD 12/01/2024 9:19 AM EDT - 12/01/2024 9:50 AM EDT Surgery [facility] 1 [place] [address] Scott Daley MD EGD, WITH [...] by mouth daily. 15 tablet 5 Active Active Problems Problem Noted Date Diagnosed [...] your living situation today? I have a [facility] place to live 11/30/2024 Think about [...] Do you speak a language other than French at [facility]? No 11/30/2024 Do you want help [...] GLUCOSE POC Routine 12/13/2024 5:46 AM EDT [facility] CBC SCAN Routine 12/13/2024 3:15 AM [...] GLUCOSE POC Routine 12/12/2024 5:43 AM EDT [facility] CBC SCAN Routine 12/12/2024 3:47 AM [...] EDT BONE MARROW SMEAR, ASPIRATION, AND STAIN ([place]) AP Routine 12/02/2024 12:06 PM EDT Melena [...] ANESTHESIA INTUBATION Routine 12/01/2024 9:01 AM EDT [place] EGD FLEXIBLE FOREIGN BODY REMOVAL 12/01/2024 8:55 [...] - 110 mg/dL 12/14/2024 3:42 PM EDT [facility] Comment: In the event of poor peripheral blood flow, venous or arterial blood should be used due to the potential of erroneous results. Notified Nurse RBV Mold Yard Supervisor [phone] 12/14/2024 3:42 PM EDT [facility] Blood WHOLE BLOOD / Unknown 12/14/2024 3:41 PM EDT 12/14/2024 3:42 PM EDT Narrative [facility] - 12/14/2024 3:42 PM EDT Mold Yard Supervisor ID is - [id number] us David Coffman PA-C POINT OF CARE TEST ORDERABLES Final Result [facility] [address] [phone] * ECG 12 lead (12/14/2024 9:10 AM EDT) Only the most recent of13 resultswithin the time period is included. Pathologist [facility] VENTRICULAR RATE EKG/MIN 89 BPM GE MUSE ATRIAL RATE (MCT) 89 BPM GE MUSE [place] Interval 146 ms GE MUSE QRS-INTERVAL (MSEC) 86 ms GE MUSE QT Interval 432 ms GE MUSE QTC Interval 525 ms GE MUSE P [place] 34 degrees GE MUSE R AXIS (MCT) -13 degrees GE MUSE T Wave [place] -2 degrees GE MUSE [place] Diagnosis Normal sinus rhythm Septal infarct (cited on or before 14-DEC-2024 ) Confirmed by DEYSI JON M.D. ([id number]) on 12/14/2024 5:07:26 PM GE MUSE 12/14/2024 9:10 AM EDT 12/14/2024 5:07 PM EDT Deysi Jon MD ECG ORDERABLES Final Result GE MUSE * (ABNORMAL) CBC with automated diff (12/14/2024 2:54 AM EDT) Only the most recent of7 resultswithin the time period is included. [facility] WBC 1.4(LL) 4.0 - 10.0 K/ L 12/14/2024 3:45 AM EDT [facility] RBC 2.45(L) 3.93 - 5.22 M/ L 12/14/2024 3:45 AM EDT [facility] Hemoglobin 7.6(L) 11.2 - 15.7 GM/DL 12/14/2024 3:45 AM EDT [facility] Hematocrit 24.1(L) 34.1 - 44.9 % 12/14/2024 3:45 AM EDT [facility] MCV 98(H) 79 - 95 fL 12/14/2024 3:45 AM EDT [facility] MCH 31.0 25.6 - 32.2 pg 12/14/2024 3:45 AM EDT [facility] MCHC 31.5(L) 32.2 - 35.5 GM/DL 12/14/2024 3:45 AM EDT [facility] RDW 16.3(H) 11.7 - 14.4 % 12/14/2024 3:45 AM EDT [facility] Platelets 51(L) 140 - 375 K/CU MM 12/14/2024 3:45 AM EDT [facility] MPV 12.3 9.4 - 12.3 fL 12/14/2024 3:45 AM EDT [facility] % Neutros 54 34 - 71 % 12/14/2024 3:45 AM EDT [facility] % Lymphs 32 19 - 52 % 12/14/2024 3:45 AM EDT [facility] % Monos 14(H) 5 - 13 % 12/14/2024 3:45 AM EDT [facility] % Eos 0(L) 1 - 6 % 12/14/2024 3:45 AM EDT [facility] % Baso 1 0 - 1 % 12/14/2024 3:45 AM EDT [facility] NRBC Absolute <0.01 0 - 0.012 K/ul 12/14/2024 3:45 AM EDT [facility] # Neutros 0.76(L) 1.56 - 6.13 K/ L 12/14/2024 3:45 AM EDT [facility] # Lymphs 0.45(L) 1.18 - 3.74 K/ L 12/14/2024 3:45 AM EDT [facility] # Monos 0.19(L) 0.24 - 0.86 K/ L 12/14/2024 3:45 AM EDT [facility] # Eos <0.03(L) 0.04 - 0.36 K/ L 12/14/2024 3:45 AM EDT [facility] # Baso <0.03 0.01 - 0.08 K/ L 12/14/2024 3:45 AM EDT [facility] Immature Granulocytes-Re lative 0.00(L) 0.01 - 0.43 % 12/14/2024 3:45 AM EDT [facility] # IG <0.03 0.00 - 0.03 K/uL 12/14/2024 3:45 AM EDT [facility] Blood Venipuncture / Unknown 12/14/2024 2:54 AM EDT 12/14/2024 3:27 AM EDT Narrative [facility] - 12/14/2024 3:45 AM EDT [...] PA-C LAB BLOOD ORDERABLES Final Re sult [facility] [address] [phone] * (ABNORMAL) Comprehensive metabolic panel (12/14/2024 2:54 AM EDT) Only the most recent of9 resultswithin the time period is included. Sodium 145 136 - 145 meq/L 12/14/2024 4:13 AM EDT [facility] Potassium 3.5 3.4 - 5.1 meq/L 12/14/2024 4:13 AM EDT [facility] Chloride 109 98 - 112 meq/L 12/14/2024 4:13 AM EDT [facility] CO2 27 22 - 29 meq/L 12/14/2024 4:13 AM EDT [facility] Calcium 8.6 8.4 - 10.2 mg/dL 12/14/2024 4:13 AM EDT [facility] Glucose 146(H) 82 - 115 mg/dL 12/14/2024 4:13 AM EDT [facility] BUN 67.7(H) 9.8 - 20.1 mg/dL 12/14/2024 4:13 AM EDT [facility] Creatinine 2.22(H) 0.57 - 1.11 mg/dL 12/14/2024 4:13 AM EDT [facility] BUN/Creatinine 30(H) 8 - 20 12/14/2024 4:13 AM [facility] eGFR (mL/min/1.73m2) 25(L) >=60 mL/min/1. 73m2 12/14/2024 4:13 AM [facility] Albumin 3.2(L) 3.5 - 5.0 g/dL 12/14/2024 4:13 AM [facility] Alkaline Phosphatase 56 40 - 150 U/L 12/14/2024 4:13 AM [facility] ALT 21 <=34 U/L 12/14/2024 4:13 AM [facility] Comment: ALT2 reagent used for testing does not contain P5P supplementation and therefore may miss ALT elevations in patients with B6 deficiency. This population may be as high as 10% in the [place], with risk factors including malabsorption, drug interactions, and alcoholic hepatitis. AST 52(H) 11 - 34 U/L 12/14/2024 4:13 AM [facility] Comment: AST2 reagent used for testing does not contain P5P supplementation and therefore may miss AST elevations in patients with B6 deficiency. This population may be as high as 10% in the [place], with risk factors including malabsorption, drug interactions, and alcoholic hepatitis. Total Bilirubin 0.9 0.2 - 1.2 mg/dL 12/14/2024 4:13 AM [facility] Protein, Total 5.9(L) 6.4 - 8.3 g/dL 12/14/2024 4:13 AM [facility] Globulin 2.7 2.5 - 4.1 g/dL 12/14/2024 4:13 AM [facility] Anion Gap 13(H) 4 - 12 12/14/2024 4:13 AM [facility] A/G Ratio 1.2 0.7 - 1.9 12/14/2024 4:13 AM [facility] Osmolality Calc 311.0 mOsm/kg 4:13 AM [facility] Blood Venipuncture / Unknown 12/14/2024 2:54 AM EDT 12/14/2024 3:26 AM EDT us David Coffman PA-C LAB BLOOD ORDERABLES Final Re sult Performing Organization Address City/[facility]/ZIP Co de Phone Number [facility] [address] [phone] * (ABNORMAL) CBC Scan (12/13/2024 3:15 AM EDT) Only the most recent of2 resultswithin the time period is included. [facility] Platelet Estimate Decreased (A) Adequate 12/13/2024 4:55 AM EDT [facility] RBC Morphology abnormal( A) Normal 12/13/2024 4:55 AM EDT [facility] Anisocytosis 1+ 12/13/2024 4:55 AM EDT [facility] Hypochromia 1+ 12/13/2024 4:55 AM EDT [facility] Ovalocytes 1+ 12/13/2024 4:55 AM EDT [facility] Blood Venipuncture / Unknown 12/13/2024 3:15 AM EDT 12/13/2024 3:27 AM EDT Venkatesh Stephen MD LAB BLOOD ORDERABLES Final Resul t Performing Organization Address [facility] Co de Phone Number [facility] [address] [phone] * (ABNORMAL) Hepatic function panel (12/13/2024 3:15 AM EDT) [facility] Protein, Total 5.7(L) 6.4 - 8.3 g/dL 12/13/2024 4:13 AM EDT [facility] Albumin 3.1(L) 3.5 - 5.0 g/dL 12/13/2024 4:13 AM EDT [facility] Total Bilirubin 0.8 0.2 - 1.2 mg/dL 12/13/2024 4:13 AM EDT [facility] Bilirubin, Direct 0.4 0.0 - 0.5 mg/dL 12/13/2024 4:13 AM EDT [facility] Alkaline Phosphatase 53 40 - 150 U/L 12/13/2024 4:13 AM EDT [facility] Globulin 2.6 2.5 - 4.1 g/dL 12/13/2024 4:13 AM EDT [facility] A/G Ratio 1.2 0.7 - 1.9 12/13/2024 4:13 AM EDT [facility] AST 42(H) 11 - 34 U/L 12/13/2024 4:13 AM EDT [facility] Comment: AST2 reagent used for testing does not contain P5P supplementation and therefore may miss AST elevations in patients with B6 deficiency. This population may be as high as 10% in the [place], with risk factors including malabsorption, drug interactions, and alcoholic hepatitis. ALT 16 <=34 U/L 12/13/2024 4:13 AM EDT [facility] Comment: ALT2 reagent used for [...] MD LAB BLOOD ORDERABLES Final Resu lt [facility] [address] [phone] * (ABNORMAL) Basic Metabolic Panel (12/13/2024 3:15 AM EDT) Only the most recent of6 resultswithin the time period is included. Sodium 147(H) 136 - 145 meq/L 12/13/2024 4:13 AM EDT [facility] Potassium 3.5 3.4 - 5.1 meq/L 12/13/2024 4:13 AM EDT [facility] CO2 27 22 - 29 meq/L 12/13/2024 4:13 AM EDT [facility] Chloride 110 98 - 112 meq/L 12/13/2024 4:13 AM EDT [facility] Glucose 135(H) 82 - 115 mg/dL 12/13/2024 4:13 AM EDT [facility] BUN 71.9(H) 9.8 - 20.1 mg/dL 12/13/2024 4:13 AM EDT [facility] Creatinine 2.29(H) 0.57 - 1.11 mg/dL 12/13/2024 4:13 AM EDT [facility] BUN/Creatinine 31(H) 8 - 20 12/13/2024 4:13 AM EDT [facility] Calcium 8.5 8.4 - 10.2 mg/dL 12/13/2024 4:13 AM EDT [facility] Anion Gap 14(H) 4 - 12 12/13/2024 4:13 AM EDT [facility] eGFR (mL/min/1.73m2) 24(L) >=60 mL/min/1.7 3m2 12/13/2024 4:13 AM EDT [facility] Osmolality Calc 315.6 mOsm/kg 4:13 AM EDT [facility] Blood Venipuncture / Unknown 12/13/2024 3:15 AM EDT 12/13/2024 3:39 AM EDT us Venkatesh Stephen MD LAB BLOOD ORDERABLES Final Resul t [facility] [address] [phone] * US paracentesis (12/10/2024 11:37 AM EDT) [...] Ascites. ATTENDING PHYSICIAN: Dr. Haseeb Gil PHYSICIAN VAULT MANAGER: Sujit Blackman PA-C FINDINGS: After informed [...] Ascites. ATTENDING PHYSICIAN: Dr. Haseeb Gil PHYSICIAN VAULT MANAGER: Sujit Blackman PA-C FINDINGS: After informed [...] Blackman PA-C. us Mary Carmen Mcfadden MD [facility] ORDERABLES Final Result * ALT (SGPT) (12/10/2024 9:53 AM EDT) ALT 12 <=34 U/L 12/10/2024 11:02 AM EDT [facility] Comment: ALT2 reagent used for [...] ORDERABLES Final Resul t Performing Organization Address [facility] Co de Phone Number [facility] [address] [phone] * (ABNORMAL) AST (SGOT) (12/10/2024 9:53 AM EDT) Pathologist [facility] AST 39(H) 11 - 34 U/L 12/10/2024 11:02 AM EDT [facility] Comment: AST2 reagent used for testing does not contain P5P supplementation and therefore may miss AST elevations in patients with B6 deficiency. This population may be as high as 10% in the [place], with risk factors including malabsorption, drug interactions, and alcoholic hepatitis. [employer] has become aware of sulfasalazine and sulfapyridine [...] ORDERABLES Final Resul t Performing Organization Address City/[facility]/ZIP Co de Phone Number [facility] [address] [phone] * Magnesium (12/10/2024 9:53 AM EDT) Only the most recent of9 resultswithin the time period is included. [facility] Magnesium 2.3 1.6 - 2.6 mg/dL 12/10/2024 11:02 AM EDT [facility] Blood Venipuncture / Unknown 12/10/2024 9:53 AM EDT 12/10/2024 10:39 AM EDT us Deysi Jon MD LAB BLOOD ORDERABLES Final Resul t [facility] [address] [phone] * XR chest AP portable (12/10/2024 9:10 [...] 7.35 - 7.45 12/10/2024 6:51 AM EDT [facility] pCO2, Arterial 49(H) 35 - 45 mm Hg 12/10/2024 6:51 AM EDT [facility] pO2, Arterial 119(H) 80 - 100 mm Hg 12/10/2024 6:51 AM EDT [facility] HCO3, Arterial 24 20 - 26 mmol/L 12/10/2024 6:51 AM EDT [facility] Base Excess, Arterial -2.4(L) -2.0 - 2.0 mmol/L 12/10/2024 6:51 AM EDT [facility] O2 Sat, Arterial >99.2 95.0 - 100.0 % 12/10/2024 6:51 AM EDT [facility] Comment:notified at read-anny k verification CTO2 ARTERIAL 11.9 mmol/L 12/10/2024 6:51 AM T [facility] THB ARTERIAL 8.5(L) 12.0 - 18.0 g/dL 12/10/2024 6:51 AM [facility] SJ COLLECTION SITE Left Radial 12/10/2024 6:51 AM EDT [facility] Arterial Puncture Yes 12/10/2024 6:51 AM T [facility] Blood Gas O2 Delivery Device Cannula 12/10/2024 6:51 AM [facility] Oxygen Flow Rate 4 12/11/19 6:51 AM [facility] Blood Gas PT Temperature C 37.0 12/10/2024 6:51 AM [facility] Sen's Test Acceptable 12/10/2024 6:51 AM [facility] ABG Number of Draw Attempts 1 12/10[facility]2024 [facility] F[facility]2 12/10/2024 6:51 AM EDT [facility] Blood Gas Temperature Corrected Results No No 12/10/2024 6:51 AM EDT [facility] Blood, Arterial Collection / Unknown 12/10/2024 6:42 AM EDT 12/10/2024 6:51 AM EDT us Blanka Alvarez MD LAB BLOOD ORDERABLES Final Re sult [facility] [address] [phone] * (ABNORMAL) CBC - Hemogram (SJ-BKR) (12/09/2024 3:38 AM EDT) Only the most recent of8 resultswithin the time period is included. WBC 2.4(L) 4.0 - 10.0 K/ L 12/09/2024 3:59 AM EDT [facility] RBC 2.83(L) 3.93 - 5.22 M/ L 12/09/2024 3:59 AM EDT [facility] Hemoglobin 8.5(L) 11.2 - 15.7 GM/DL 12/09/2024 3:59 AM EDT [facility] Hematocrit 28.0(L) 34.1 - 44.9 % 12/09/2024 3:59 AM EDT [facility] MCV 99(H) 79 - 95 fL 12/09/2024 3:59 AM EDT [facility] MCH 30.0 25.6 - 32.2 pg 12/09/2024 3:59 AM EDT [facility] MCHC 30.4(L) 32.2 - 35.5 GM/DL 12/09/2024 3:59 AM EDT [facility] RDW 17.2(H) 11.7 - 14.4 % 12/09/2024 3:59 AM EDT [facility] Platelets 55(L) 140 - 375 K/CU MM 12/09/2024 3:59 AM EDT [facility] MPV 11.5 9.4 - 12.3 fL 12/09/2024 3:59 AM EDT [facility] Blood Venipuncture / Unknown 12/09/2024 3:38 AM EDT 12/09/2024 3:45 AM EDT us Mary Carmen Mcfadden MD LAB BLOOD ORDERABLES Final Resu lt [facility] [address] [phone] * Erythropoietin(SENDOUT) (12/07/2024 3:59 AM EDT) Erythropoietin 19 4 - 27 mU/mL 12/08/2024 2:30 PM EDT [facility] Comment: INTERPRETIVE INFORMATION: Erythropoietin Normal serum concentrations [...] benefit from therapy with recombinant EPO ([facility] [id number],1989). Performed By: [facility] [address] [place] [id number] Order Packer Or Packager: Lalo Mortensen MD, PhD CLIA Number: [id number] Blood Venipuncture / Unknown 12/07/2024 3:59 AM EDT 12/07/2024 4:11 AM EDT Ariel Mills MD LAB BLOOD ORDERABLES Final Res ult Performing Organization Address [facility] Co de Phone Number [address] [phone] * Ammonia (12/07/2024 3:59 AM EDT) Only the most recent of8 resultswithin the time period is included. Ammonia 44 18 - 72 mol/L 12/07/2024 4:37 AM EDT [facility] Blood Venipuncture / Unknown 12/07/2024 3:59 AM EDT 12/07/2024 4:22 AM EDT Timothy Bai MD LAB BLOOD ORDERABLES Final Result Performing Organization Address [facility] de Phone Number [facility] [address] [phone] * (ABNORMAL) Ferritin (12/06/2024 3:13 AM EDT) Only the most recent of2 resultswithin the time period is included. Ferritin 256.82(H) 4.63 - 204.00 ng/mL 12/06/2024 8:25 AM EDT [facility] Blood Venipuncture / Unknown 12/06/2024 3:13 AM EDT 12/06/2024 3:50 AM EDT Ariel Mills MD LAB BLOOD ORDERABLES Final Res ult Performing Organization Address [facility] Co de Phone Number [facility] [address] [phone] * (ABNORMAL) Hemoglobin (12/05/2024 3:36 PM EDT) Only the most recent of11 resultswithin the time period is included. Hemoglobin 8.1(L) 11.2 - 15.7 GM/DL 12/05/2024 3:57 PM EDT [facility] Blood Venipuncture / Unknown 12/05/2024 3:36 PM EDT 12/05/2024 3:47 PM EDT us Timothy Bai MD LAB BLOOD ORDERABLES Final Result [facility] [address] [phone] * ANCA Vasculitis Profile(SENDOUT) (12/04/2024 8:15 AM EDT) Pathologist [facility] Myeloperoxidase (MPO) Ab, IgG 0 0 - 19 AU/mL 12/07/2024 8:52 AM EDT [facility] Comment: INTERPRETIVE INFORMATION: Myeloperoxidase Abs, IgG 19 AU/mL or Less ......... Negative 20-25 AU/mL .............. Equivocal 26 AU/mL or Greater ...... Positive Approximately 90% of patients with a P-ANCA pattern by IFA have antibodies specific for MPO. Serine Proteinase 3 (PR3) Ab, IgG 0 0 - 19 AU/mL 12/07/2024 8:52 AM EDT [facility] Comment: INTERPRETIVE INFORMATION: Serine Proteinase 3, IgG 19 AU/mL or Less ........ Negative 20-25 AU/mL ............. Equivocal 26 AU/mL or Greater ..... Positive Approximately 85% of patients with a C-ANCA pattern by IFA have antibodies specific for PR3. ANCA IFA Titer <1:20 <1:20 12/07/2024 8:52 AM EDT [facility] ANCA IFA Pattern None Detected None Detected 12/07/2024 8:52 AM EDT [facility] Comment: INTERPRETIVE INFORMATION: ANCA IFA Pattern Neutrophil Cytoplasmic Antibodies (C-ANCA = granular cytoplasmic staining, P-ANCA = perinuclear staining) are found in the serum of over 90 percent of patients with certain necrotizing systemic vasculitides, and usually in less than 5 percent of patients with collagen vascular disease or arthritis. Performed By: [facility] [address] [place] [address] Order Packer Or Packager: Lalo Mortensen MD, PhD CLIA Number: [id number] Blood Venipuncture / Unknown 12/04/2024 8:15 AM EDT 12/04/2024 8:32 AM EDT Hema Cervantes MD LAB BLOOD ORDERABLES Final Re sult [facility] [address] [place] [address], [facility] [phone] * JEANA Reflexive Profile(SENDOUT) (12/04/2024 8:15 AM EDT) Anti-Nuclear Ab (JEANA), IgG by SHARON None Detected None Detected 12/06/2024 3:51 PM EDT [facility]anga Comment: No Anti-Nuclear Antibodies (JEANA) detected by SHARON. The Extractable Nuclear Antigen Antibodies ([employer]ER, Llanes, SSA 52, SSA 60, Scleroderma, Lilia-1 and SSB) and Double Stranded DNA (dsDNA) Antibody, IgG will not be performed. If suspicion of connective tissue disease is strong, and JEANA is negative by SHARON, consider testing for JEANA by IFA ([id number]). INTERPRETIVE INFORMATION: Anti-Nuclear Antibodies (JEANA), IgG by SHARON Antinuclear Antibodies (JEANA), IgG by SHARON: JEANA specimens are screened using enzyme-linked immunosorbent assay (SHARON) methodology. All SHARON results reported as Detected are further tested by indirect fluorescent assay (IFA) using HEp-2 substrate with an IgG-specific conjugate. The JEANA SHARON screen is designed to detect antibodies against dsDNA, histones, SS-A (Ro), SS-B (La), Llanes, Llanes/MONE[employer]ITION OFFICER, Scl-70, Lilia-1, centromeric proteins, other antigens extracted from the HEp-2 cell nucleus. JEANA SHARON assays have been reported to have lower sensitivities than JEANA IFA for systemic autoimmune rheumatic diseases (SARD). Negative results do not necessarily rule out SARD. Performed By: [facility] [address] [place], [place] [id number] Order Packer Or Packager: Lalo Mortensen MD, PhD CLIA Number: [id number] Blood Venipuncture / Unknown 12/04/2024 8:15 AM EDT 12/04/2024 8:32 AM EDT us Hema Cervantes MD LAB BLOOD ORDERABLES Final Re sult Performing Organization Address [facility]/ZIP Co de Phone Number [address] [phone] * Phosphorus (12/04/2024 3:34 AM EDT) Phosphorus 4.2 2.5 - 4.5 mg/dL 12/04/2024 4:04 AM EDT [facility] Blood Venipuncture / Unknown 12/04/2024 3:34 AM EDT 12/04/2024 3:41 AM EDT us Kirsty Tuttle APRN LAB BLOOD ORDERABLES Final R esult Performing Organization Address [facility] Co de Phone Number [facility] [address] [phone] * Creatine Kinase (CK) (12/03/2024 7:39 AM EDT) Only the most recent of2 resultswithin the time period is included. Total CK 55 29 - 168 U/L 12/03/2024 6:19 PM EDT [facility] Blood Venipuncture / Unknown 12/03/2024 7:39 AM EDT 12/03/2024 5:52 PM EDT us Hema Cervantes MD LAB BLOOD ORDERABLES Final Re sult Performing Organization Address [facility]/ZIP Co de Phone Number [facility] [address] [phone] * Transfuse RBC (12/02/2024 5:03 PM EDT) [...] Pancytopenia. ATTENDING RADIOLOGIST: Dr. Haseeb Gil. PHYSICIAN VAULT MANAGER: Sandra Ramsey PA-C PROCEDURE: After informed [...] Pancytopenia. ATTENDING RADIOLOGIST: Dr. Haseeb Gil. PHYSICIAN VAULT MANAGER: Sandra Ramsey PA-C PROCEDURE: After informed [...] by Sandra Ramsey PA-C. Rommel Batista MD [facility] CT ORDERABLES Final Result * [facility] BONE MARROW SMEAR, ASPIRATION, AND STAIN (12/02/2024 12:06 PM EDT) AP RESULT See Note: PATHOLOGY AND CYTOLOGY LABORATORY Comment: [facility] [address] [place] [address] or [phone] Joe Carlos M.D., [place] PATIENT NAME LABORATORY NO. MARY OLIVA. [id number] [facility] MAIN AGE SEX SSN CLIENT REF # [id number] 1960 F [id number] 1 [place] [address] REQUESTING Mirtha. ATTENDING Aleksandr. COPY TOROMMEL PICHARDO DATE COLLECTED DATE RECEIVED DATE REPORTED 12/02/2024 12/02/2024 12/06/2024 ADDENDUM PRESENT ADDENDUM: Cytogenetics shows a normal female karyotype, 46,XX[20]. The original diagnosis remains unchanged. Verified by Heydi Mak M.D., MPH on 12/13/2024 Professional interpretation rendered by Heydi Mak M.D., MPH at [employer], [address] [place] [address]. DIAGNOSIS: PERIPHERAL SMEAR , BONE MARROW ASPIRATION [...] CD38, CD45, CD56, CD57, CD117, CD123, HLA-DR, [place], and Lambda. These tests use analyte specific [...] rendered by Heydi Mak M.D., MPH at [employer], [facility], [address] [place] [address], [place] [address]. GROSS DESCRIPTION: A. Received 1 peripheral blood smear slide for review. B. Received 5 bone marrow aspirate smear slides for review. 4 additional bone marrow aspirate smear slides made at [facility]. C. Received in a purple [...] BY: Heydi Mak M.D., MPH CPT CODES: 29653, 2FLP, 76462, [id number], [id number], 62356, 50061, [id number] Bone Marrow BONE MARROW STRUCTURE / Unknown 12/02/2024 12:06 PM EDT us Rommel Batista MD PATHOLOGY/CYTOLOGY ORDERABLES Edited Result - Final PATHOLOGY AND CYTOLOGY LABORATORY [address] [place] [address] * Prepare RBC: 1 Units (12/02/2024 9:36 AM EDT) Only the most recent of2 resultswithin the time period is included. Issue Date/Time [id number] [facility] [place] Product Identification Red Blood Cells [facility] [place] Product Code [id number] [facility] [place] Status Information Transfused [facility] [place] Unit Number [id number] [facility] [place]) Blood Type 5100 [facility] [place] Cross Match Results Compatible [facility] [place] us Timothy Bai MD FS_MODEL_IP_BLOOD BANK PRO DUCT ORDERABLES Final Result Performing Organization Address [facility] Co de Phone Number [facility] [place] [address] [phone] * (ABNORMAL) Hemoglobin and hematocrit (12/02/2024 7:40 AM EDT) Hemoglobin 7.4(L) 11.2 - 15.7 GM/DL 12/02/2024 9:43 AM EDT [facility] Hematocrit 23.4(L) 34.1 - 44.9 % 12/02/2024 9:43 AM EDT [facility] Blood Venipuncture / Unknown 12/02/2024 7:40 AM EDT 12/02/2024 7:47 AM EDT us Timothy Bai MD LAB BLOOD ORDERABLES Final Result Performing Organization Address [facility] Co de Phone Number [facility] [address] [phone] * AN SINGLE LUMEN INTUBATION (12/01/2024 9:01 [...] ABO/Rh O Positive 12/01/2024 4:53 AM EDT [facility] [place] Antibody Screen Negative 12/01/2024 4:53 AM EDT [facility] [place] HISTCHK HIST CHECK PERFORMED 12/01/2024 4:53 AM EDT [facility] [place] Blood Venipuncture / Unknown 12/01/2024 7:08 AM EDT 12/01/2024 7:15 AM EDT us Denilson Hodgson DO [facility] TEST ORDERABLES Final Result Performing Organization Address [facility] Co de Phone Number [facility] ([place]) [address] [place] [address] [phone] * ABO/RH Confirmation/Retype (12/01/2024 4:06 AM EDT) RETYPE O Positive 12/01/2024 5:15 AM EDT [facility] ([place] Comment:[id number] Blood Venipuncture / Unknown 12/01/2024 4:06 AM EDT 12/01/2024 5:14 AM EDT Timothy Bai MD [facility] B[facility]OD [facility] TEST ORDERA BLES Final Result Performing Organization Address [facility]/ZIP Co de Phone Number [facility] [place] [address] [facility] [place] [address], [facility] [phone] * Ultrasound renal limited (11/30/2024 4:19 PM [...] by SABINE Yang. us Destiney Llanes APRN [facility] US ORDERABLES Final Res ult * DIFFERENTIAL, BODY FLUID (11/30/2024 4:03 PM EDT) Neutrophils Fluid 5 0 - 25 % 025 8:49 PM EDT [facility] Lymphocytes Fluid 46 % 025 8:49 PM EDT [facility] Unidentified Mononuclear Cells BF 49 0 - 0 % 11/30/2024 8:49 PM EDT [facility] Peritoneal Fluid BODY FLUID / Unknown 11/30/2024 4:03 PM EDT 11/30/2024 4:33 PM EDT Huey Hurtado MD BODY FLUIDS AND STOOLS ORDERABLE S Final Result [facility] [address] [phone] * [facility] Non-Seo Manager Cytology (11/30/2024 4:03 PM EDT) AP RESULT See Note: PATHOLOGY AND CYTOLOGY LABORATORY Comment: [facility] [address] [place] [address] or [phone] Joe Carlos M.D., [place] PATIENT NAME LABORATORY NO. MARY OLIVA. [id number] AGE SEX SSN CLIENT REF # [facility] 64 1960 F [id number] 1 [facility] REQUESTING Aleksandr ATTENDING Aleksand[place] [address] HUEY HURTADO DATE COLLECTED DATE RECEIVED DATE REPORTED 11/30/2024 12/01/2024 12/02/2024 DIAGNOSIS: PERITONEAL FLUID: Negative for malignant cells. MICROSCOPIC DESCRIPTION: Scattered mesothelial cells and chronic inflammatory cells are present. Professional interpretation rendered by John Sanchez M.D., F.C.A.P. at [employer], [address] [place] [address]. CLINICAL HISTORY: Melena Anasarca Acute renal failure SPECIMENS SUBMITTED: PERITONEAL FLUID GROSS SPECIMEN DESCRIPTION: 40 ccs of hazy, light yellow fluid, scant sediment, received in fixative ThinPrep slides prepared. Cell block has been examined. BOX STACKER: SVITLANA HERNANDEZ (ASCP) REVIEWED, DIAGNOSED AND ELECTRONICALLY SIGNED BY: John Sanchez M.D., F.C.A.P. CPT CODES: [id number], 37483 Peritoneal Fluid BODY FLUID / Unknown 11/30/2024 4:03 PM EDT us Huey Hurtado MD PATHOLOGY/CYTOLOGY ORDERABLES Fi nal Result PATHOLOGY AND CYTOLOGY LABORATORY [address] * AFB Culture And Stain (11/30/2024 4:03 PM EDT) Result No Acid Fast Bacilli isolated at 6 weeks 01/11/2025 5:00 PM EDT [facility] AFB Smear No acid fast bacilli seen 01/11/2025 5:00 PM EDT [facility] Peritoneal Fluid BODY FLUID / Unknown 11/30/2024 4:03 PM EDT 11/30/2024 4:34 PM EDT Narrative [facility] - 01/11/2025 5:00 PM EDT Specimen Description: peritoneal fluid us Huey Hurtado MD MICROBIOLOGY - GENERAL ORDERABLE S Final Result [facility] [address] [phone] * Body Fluid/CSF - Path Review (SJ) (11/30/2024 4:03 PM EDT) SENT TO PATHOLOGY FOR REVIEW Yes 12/03/2024 6:54 AM EDT [facility] Scan Result Mesothelial cells. MD German 12/02/2024 12/03/2024 6:54 AM EDT [facility] Peritoneal Fluid BODY FLUID / Unknown 11/30/2024 4:03 PM EDT 11/30/2024 4:33 PM EDT us Huey Hurtado MD BODY FLUIDS AND STOOLS ORDERABLE S Final Result [facility] [address] [phone] * Fungus Culture W/ROSA MARIA Or [employer]gen Ink (11/30/2024 4:03 PM EDT) Result No fungus isolated at 6 weeks. 01/11/2025 5:00 PM EDT [facility] ROSA MARIA Prep No fungal elements seen 01/11/2025 5:00 PM EDT [facility] Peritoneal Fluid BODY FLUID / Unknown 11/30/2024 4:03 PM EDT 11/30/2024 4:34 PM EDT [facility] - 01/11/2025 5:00 PM EDT Specimen Description: peritoneal fluid us Huey Hurtado MD MICROBIOLOGY - GENERAL ORDERABLE S Final Result Performing Organization Address [facility]/ZIP Co de Phone Number [facility] [address] [phone] * Glucose, body fluid (11/30/2024 4:03 PM EDT) Glucose, Body Fluid 107 See Comment mg/dL 12/01/2024 7:10 AM EDT [facility] BODY FLUID TYPE Peritoneal 12/01/2024 7:10 AM EDT [facility] Body Fluid PERITONEAL FLUID / Unknown 11/30/2024 4:03 PM EDT 12/01/2024 6:52 AM EDT [facility] LAB[facility]ATORY - 12/01/2024 7:10 AM EDT This test has been modified from the vault cashier's instructions and its performance characteristics were determined by the laboratory. The reference intervals and other method performance specifications are unavailable for this test. It is recommended to interpret body fluid concentrations in comparison with the corresponding serum or plasma concentrations and to integrate test results into the clinical context. us Timothy Bai MD BODY FLUIDS AND STOOLS ORD ERABLES Final Result [facility] [address] [phone] * Anaerobic Culture (11/30/2024 4:03 PM EDT) Result No Anaerobic growth 12/05/2024 6:34 AM EDT [facility] Peritoneal Fluid BODY FLUID / Unknown 11/30/2024 4:03 PM EDT 11/30/2024 4:34 PM EDT [facility] - 12/05/2024 6:34 AM EDT Specimen Description: peritoneal fluid us Huey Hurtado MD MICROBIOLOGY - GENERAL ORDERABLE S Final Result [facility] [address] [phone] * Body Fluid Culture + Gram Stain (11/30/2024 4:03 PM EDT) Result No growth 12/03/2024 9:07 AM EDT [facility] Gram Stain Result No organisms seen 12/03/2024 9:07 AM EDT [facility] Gram Stain Result No cells seen 12/03/2024 9:07 AM EDT [facility] Peritoneal Fluid BODY FLUID / Unknown 11/30/2024 4:03 PM EDT 11/30/2024 4:34 PM EDT [facility] - 12/03/2024 9:07 AM EDT Specimen Description: peritoneal fluid us Huey Hurtado MD MICROBIOLOGY - GENERAL ORDERABLE S Final Result [facility] [address] [phone] * (ABNORMAL) Body fluid cell count with differential (11/30/2024 4:03 PM EDT) Appearance Cloudy(A) Clear 11/30/2024 8:49 PM EDT [facility] Color Yellow 11/30/2024 8:49 PM EDT [facility] BODY FLUID TYPE Peritoneal 11/30/2024 8:49 PM EDT [facility] Auto WBC/Nucleated Cells BF 85 /uL 11/30/2024 8:49 PM EDT [facility] Comment: Please refer to specific WBC/Nucleated Cell Count Body Fluid reference ranges below: For Pleural: 0-1000 Peritoneal: 0-1000 Pericardial:0-1000 Synovial: 0-200 Auto RBC BF <3,000 /uL 11/30/2024 8:49 PM EDT [facility] Comment: Please refer to specific RBC Cell Count Body Fluid reference ranges below: Pleural: 0-10,000 Peritoneal: 0-10,000 Pericardial:0-10,000 Synovial:0-30 Peritoneal Fluid BODY FLUID / Unknown 11/30/2024 4:03 PM EDT 11/30/2024 4:33 PM EDT Narrative [facility] - 11/30/2024 8:49 PM EDT There is normally no readily obtainable pleural, peritoneal and pericardial fluid, hence normal elements for these potential fluids are not defined. us Huey Hurtado MD BODY FLUIDS AND STOOLS ORDERABLE S Final Result Performing Organization Address [facility] Co de Phone Number [facility] [address] [phone] * Protein, body fluid (11/30/2024 4:03 PM EDT) Protein, Fluid 1.9 See Comment g/dL 12/01/2024 7:10 AM EDT [facility] BODY FLUID TYPE Peritoneal 12/01/2024 7:10 AM EDT [facility] Body Fluid PERITONEAL FLUID / Unknown 11/30/2024 4:03 PM EDT 12/01/2024 6:52 AM EDT Narrative [facility] - 12/01/2024 7:10 AM EDT This test has been modified from the vault cashier's instructions and its performance characteristics were determined [...] ORD ERABLES Final Result Performing Organization Address [facility]/State/ZIP Co de Phone Number [facility] [address] [phone] * Lactate dehydrogenase (LDH), body fluid (11/30/2024 4:03 PM EDT) LDH, Fluid 71 See Comment U/L 11/30/2024 6:19 PM EDT [facility] BODY FLUID TYPE Peritoneal 11/30/2024 6:19 PM EDT [facility] Peritoneal Fluid BODY FLUID / Unknown 11/30/2024 4:03 PM EDT 11/30/2024 4:33 PM EDT Narrative [facility] - 11/30/2024 6:19 PM EDT This test has been modified from the vault cashier's instructions and its performance characteristics were determined by the laboratory. The reference intervals and other method performance specifications are unavailable for this test. It is recommended to interpret body fluid concentrations in comparison with the corresponding serum or plasma concentrations and to integrate test results into the clinical context. Huey Hurtado MD BODY FLUIDS AND STOOLS ORDERABLE S Final Result [facility] [address] [place] [address], [facility] [phone] * (ABNORMAL) Urinalysis, Reflex Microscopic and Culture If Indicated (11/30/2024 11:35 AM EDT) Color, UA Light Yellow 11/30/2024 12:06 PM EDT [facility] Clarity, UA Turbid(A) Clear 11/30/2024 12:06 PM EDT [facility] Specific [place], UA 1.011 1.005 - 1.030 11/30/2024 12:06 PM EDT [facility] pH, UA 5.0(L) 6.0 - 8.0 11/30/2024 12:06 PM EDT [facility] Leukocytes, UA 500 Félix/uL(A) Negative 11/30/2024 12:06 PM EDT [facility] Nitrite, UA Negative Negative 11/30/2024 12:06 PM EDT [facility] Protein, UA Negative Negative 11/30/2024 12:06 PM EDT [facility] Glucose, UA Normal Normal 11/30/2024 12:06 PM EDT [facility] Ketones, UA Negative Negative 11/30/2024 12:06 PM EDT [facility] Bilirubin, UA Negative Negative 11/30/2024 12:06 PM EDT [facility] Blood, UA Negative Negative 11/30/2024 12:06 PM EDT [facility] Urobilinogen, UA Normal Normal 11/30/2024 12:06 PM EDT [facility] Specimen Source Urine, Clean Catch 11/30/2024 12:06 PM EDT [facility] Urine URINE SPECIMEN COLLECTION, CLEAN CATCH / Unknown 11/30/2024 11:35 AM EDT 11/30/2024 11:41 AM EDT us Destiney Llanes INSPECTOR SEMICONDUCTOR WAFER URINE ORDERABLES Final Resu lt [facility] [address] [phone] * (ABNORMAL) Urinalysis Microscopic Only (11/30/2024 11:35 AM EDT) WBC, UA 21-50(A) None Seen /HPF 11/30/2024 12:06 PM EDT [facility] RBC, UA 0-2(A) None Seen /HPF 11/30/2024 12:06 PM EDT [facility] Bacteria, UA 1+(A) None Seen, Trace 11/30/2024 12:06 PM EDT [facility] Mucus 1+(A) None Seen 11/30/2024 12:06 PM EDT [facility] SQUAMOUS EPITHELIAL 3-5(A) None Seen /HPF 11/30/2024 12:06 PM EDT [facility] HYALINE CASTS 21-50(A) None Seen /LPF 11/30/2024 12:06 PM EDT [facility] Urine URINE SPECIMEN COLLECTION, CLEAN CATCH / Unknown 11/30/2024 11:35 AM EDT 11/30/2024 11:41 AM EDT us Destiney Llanes APRN URINE ORDERABLES Final Resu lt Performing Organization Address [facility]/State/ZIP Co de Phone Number [facility] [address] [phone] * Urea Nitrogen, random urine (11/30/2024 11:35 AM EDT) Urea Nitrogen, Ur 305 mg/dL 11/30/2024 12:36 PM EDT [facility] Comment:Reference Range not established Urine 11/30/2024 11:3 5 AM EDT 11/30/2024 12:15 PM EDT us Hill Boo MD URINE ORDERABLES Final Result Performing Organization Address [facility] Co de Phone Number [facility] [address] [phone] * Protein / creatinine ratio, urine (11/30/2024 11:35 AM EDT) Creatinine, Ur 62.00 47.00 - 110.00 mg/dL 11/30/2024 12:36 PM EDT [facility] Protein Creatinine Ratio 0.19 <=0.20 11/30/2024 12:36 PM EDT [facility] Protein, Urine 12 1 - 14 mg/dL 11/30/2024 12:36 PM EDT [facility] Urine 11/30/2024 11:3 5 AM EDT 11/30/2024 12:15 PM EDT us Hill Boo MD URINE ORDERABLES Final Result Performing Organization Address [facility]/ZIP Co de Phone Number [facility] [address] [phone] * Sodium, random urine (11/30/2024 11:35 AM EDT) Sodium Urine 83 See Comment meq/L 11/30/2024 12:36 PM EDT [facility] Comment:Reference Range not established Urine 11/30/2024 11:3 5 AM EDT 11/30/2024 12:15 PM EDT Hill Boo MD URINE ORDERABLES Final Result [facility] [address] [phone] * Urine Culture (11/30/2024 11:35 AM EDT) Result Recollect Specimen - 3 or more organisms suggests contamination 12/01/2024 6:49 AM EDT [facility] Urine URINE SPECIMEN COLLECTION, CLEAN CATCH / Unknown 11/30/2024 11:35 AM EDT 11/30/2024 11:41 AM EDT Destiney Llanes APRN MICROBIOLOGY - GENERAL ORDTammie HAMLIN Final Result [facility] [address] [phone] * (ABNORMAL) Monoclonal Protein Study, Expanded Panel(SENDOUT) [...] - 1.51 g/dL 12/03/2024 12:57 PM EDT [facility] Immunofixation MAEGAN Done 12/03/2024 12:57 PM EDT [facility] Immunoglobulin G 1484 768 - 1632 mg/dL 12/03/2024 12:57 PM EDT [facility] Immunoglobulin A 686(H) 68 - 408 mg/dL 12/03/2024 12:57 PM EDT [facility] Immunoglobulin M 126 35 - 263 mg/dL 12/03/2024 12:57 PM EDT [facility] Monoclonal Protein Not Applicable <=0.00 g/dL 12/03/2024 12:57 PM EDT [facility] [place] Qnt Free Light Chains 173.10(H) 3.30 - 19.40 mg/L 12/03/2024 12:57 PM EDT [facility] Comment: INTERPRETIVE INFORMATION: [place] Qnt Free Light Chains Undetected antigen excess is a rare event but cannot be excluded. Free light chain results should always be interpreted in conjunction with other clinical and laboratory findings. [place]ambda Qnt Free Light Chains 123.84(H) 5.71 - 26.30 mg/L 12/03/2024 12:57 PM EDT [facility] Comment: INTERPRETIVE INFORMATION: [place]ambda Qnt Free Light Chains Undetected antigen excess is a rare event but cannot be excluded. Free light chain results should always be interpreted in conjunction with other clinical and laboratory findings. [place]/Lambda Free Light Chain Ratio 1.40 0.26 - 1.65 12/03/2024 12:57 PM EDT [facility] SPEP/MAEGAN Interpretation See Note 12/03/2024 12:57 PM EDT [facility] Comment: Restricted band in the [...] Serum See Note 12/03/2024 12:57 PM EDT [facility] Comment: Authorized individuals can access the [facility] Enhanced Report with an [employer] Connect account using the following link. Your local lab can assist you in obtaining the patient report if you don't have a Connect account. [email or web address] Performed By: [facility] [address] [place] [id number] Order Packer Or Packager: Lalo Mortensen MD, PhD CLIA Number: [id number] Blood Venipuncture / Unknown 11/30/2024 11:01 AM EDT 11/30/2024 12:17 PM EDT Alejandre Rajeev [facility] LAB BLOOD ORDERABLES Final Resu lt [facility] [address] [place] [address], [facility] [phone] * Alpha Fetoprotein Tumor Marker(SENDOUT) (11/30/2024 11:01 AM EDT) Alpha Fetoprotein Tumor Marker 2 0 - 9 ng/mL 12/01/2024 3:41 PM EDT [facility] Comment: INTERPRETIVE INFORMATION: Alpha Fetoprotein Tumor Marker The Stefany Superior Access DxI AFP method is used. Results [...] reference intervals for this test in the [employer] [facility] Test Directory ([employer]). Performed By: [facility] [address] [place] [id number] Order Packer Or Packager: Lalo Mortensen MD, PhD CLIA Number: [id number] Blood Venipuncture / Unknown 11/30/2024 11:01 AM EDT 11/30/2024 11:06 AM EDT us Destiney Llanes APRN LAB BLOOD ORDERABLES Final Result Performing Organization Address City/[facility]/ZIP Co de Phone Number [facility] [address] [place] [address] * (ABNORMAL) Vitamin D, 25-Hydroxy (11/30/2024 8:20 AM EDT) Vitamin D 25-Hydroxy 22.0(L) 30 - 80 ng/mL 11/30/2024 9:48 AM EDT [facility] Blood Venipuncture / Unknown 11/30/2024 8:20 AM EDT 11/30/2024 9:08 AM EDT Timothy Bai MD LAB BLOOD ORDERABLES Final Result Performing Organization Address [facility] Co de Phone Number [facility] [address] [phone] * Hemoglobin A1c (11/30/2024 8:20 AM EDT) Hemoglobin A1C 4.9 4.0 - 5.6 % 11/30/2024 9:17 AM EDT [facility] Comment: Hemoglobin A1C levels are related to mean glucose during the preceding 2-3 months. Less than 7% demonstrates glycemic control in diabetic patients. Hemoglobin AlC % Suggested Diagnosis > or = 6.5 Diabetic 5.7 - 6.4 Prediabetic <5.7 Non-diabetic eAVG Glucose 93.93 70 - 126 mg/dL 11/30/2024 9:17 AM EDT [facility] Blood Venipuncture / Unknown 11/30/2024 8:20 AM EDT 11/30/2024 9:07 AM EDT Huey Hurtado MD LAB BLOOD ORDERABLES Final Resul t Performing Organization Address [facility]/ZIP Co de Phone Number [facility] [address] [phone] * ECHO COMPLETE (DOPPLER / COLOR) WO CONTRAST (11/30/2024 7:50 AM EDT) Anatomical Region Laterality Modality Heart Vascular Ultraso und 11/30/2024 7:25 AM EDT Narrative 11/30/2024 10:46 AM EDT TRANSTHORACIC ECHOCARDIOGRAPHY REPORT Demographics Patient Name: HOMER JONES : 1960 Age: 64 year(s) Corporate ID Number: [id number] Gender Female General Technician: Giovanna Rock Height: 67 inches [facility] [[email or web address]] Referring Physician: HUEY HURTADO Weight: 225 pounds [...] 1.35 m/s E/A ratio: 0.97 m/s Volume [id number] LV length: 8.51 cm ml Volume [id number] ml LVOT diameter: 1.79 cm Normal sized [...] Valve TR velocity: 2.51 m/s TR gradient: 25.04720 mmHg Estimated RAP: 3 mmHg RVSP: 28.12 [...] 11/30/2024 TRANSTHORACIC ECHOCARDIOGRAPHY REPORT Demographics Patient Name: HOMER JONES : 1960 Age: 64 year(s) Corporate ID Number: [id number] Gender Female General Technician: Giovanna Rock Height: 67 inches [facility] [email or web address] Referring Physician: HUEY HURTADO Weight: 225 pounds [...] 1.35 m/s E/A ratio: 0.97 m/s Volume [id number] LV length: 8.51 cm ml Volume mwbwxzfu70.96 ml LVOT diameter: 1.79 cm Normal sized [...] Valve TR velocity: 2.51 m/s TR gradient: 25.84085 mmHg Estimated RAP: 3 mmHg RVSP: 28.12 [...] in 5 days 12/05/2024 5:01 AM EDT [facility] Blood ENTIRE RIGHT UPPER ARM / Unknown Venipuncture / Unknown 11/30/2024 3:42 AM EDT 11/30/2024 4:09 AM EDT us Huey Hurtado MD MICROBIOLOGY - GENERAL ORDERABLE S Final Result Performing Organization Address [facility] Co de Phone Number [facility] [address] [phone] * Lactic Acid with reflex (11/30/2024 3:40 AM EDT) Lactic Acid Level (mmol/L) 0.9 0.5 - 2.2 mmol/L 11/30/2024 5:37 AM EDT [facility] Blood Venipuncture / Unknown 11/30/2024 3:40 AM EDT 11/30/2024 4:10 AM EDT us Huey Hurtado MD LAB BLOOD ORDERABLES Final Resul t Performing Organization Address [facility]/ZIP Co de Phone Number [facility] [address] [phone] * Procalcitonin (11/30/2024 3:40 AM EDT) Procalcitonin 0.26 See Comment ng/mL 11/30/2024 5:07 AM EDT [facility] Comment: Sepsis comment <0.5 Antibiotics [...] MD LAB BLOOD ORDERABLES Final Resul t [facility] [address] [phone] * (ABNORMAL) Iron and TIBC (11/30/2024 3:40 AM EDT) Iron 63 50 - 170 ug/dL 11/30/2024 6:13 PM EDT [facility] TIBC 183(L) 250 - 435 ug/dL 11/30/2024 6:13 PM EDT [facility] % Saturation 34 % 11/30/2024 6:13 PM EDT [facility] UIBC 120 11/30/2024 6:13 PM EDT [facility] Blood Venipuncture / Unknown 11/30/2024 3:40 AM EDT 11/30/2024 4:09 AM EDT us Rommel Batista MD LAB BLOOD ORDERABLES Final Res ult [facility] [address] [phone] * aPTT (11/30/2024 3:40 AM EDT) aPTT 27.7 22.0 - 32.0 seconds 11/30/2024 4:32 AM EDT [facility] Blood Venipuncture / Unknown 11/30/2024 3:40 AM EDT 11/30/2024 4:10 AM EDT us Huey Hurtado MD LAB BLOOD ORDERABLES Final Resul t Performing Organization Address [facility] Co de Phone Number [facility] [address] [phone] * (ABNORMAL) Prothrombin time/INR (11/30/2024 3:40 AM EDT) Protime 12.9(H) 9.0 - 12.0 seconds 11/30/2024 4:32 AM EDT [facility] INR 1.17(H) 0.80 - 1.10 11/30/2024 4:32 AM EDT [facility] Comment: Recommended therapeutic ranges using [...] ORDERABLES Final Resul t Performing Organization Address [facility]/ZIP Co de Phone Number [facility] [address] [phone] * (ABNORMAL) Uric acid (11/30/2024 3:40 AM EDT) Uric Acid 11.2(H) 2.5 - 6.2 mg/dL 11/30/2024 12:18 PM EDT [facility] Blood Venipuncture / Unknown 11/30/2024 3:40 AM EDT 11/30/2024 4:09 AM EDT us Hill Boo MD LAB BLOOD ORDERABLES Final Resu lt Performing Organization Address City/[facility]/ZIP Co de Phone Number [facility] [address] [phone] * (ABNORMAL) Lactate dehydrogenase (LDH) (11/30/2024 3:40 AM EDT) LDH 261(H) 125 - 220 U/L 11/30/2024 12:18 PM EDT [facility] Blood Venipuncture / Unknown 11/30/2024 3:40 AM EDT 11/30/2024 4:09 AM EDT us Hill Boo MD LAB BLOOD ORDERABLES Final Resu lt Performing Organization Address [facility] Co de Phone Number [facility] [address] [phone] * Iron, serum (11/30/2024 3:40 AM EDT) Iron 64 50 - 170 ug/dL 11/30/2024 8:10 AM EDT [facility] Blood Venipuncture / Unknown 11/30/2024 3:40 AM EDT 11/30/2024 4:09 AM EDT us Timothy Bai MD LAB BLOOD ORDERABLES Final Result Performing Organization Address [facility] Co de Phone Number [facility] [address] [phone] * Folate, Serum (11/30/2024 3:40 AM EDT) Folate 7.0 7.0 - 31.4 ng/mL 11/30/2024 6:08 PM EDT [facility] Blood Venipuncture / Unknown 11/30/2024 3:40 AM EDT 11/30/2024 4:09 AM EDT us Rommel Batista MD LAB BLOOD ORDERABLES Final Res ult [facility] [address] [phone] * Vitamin B12 (11/30/2024 3:40 AM EDT) Vitamin B12 678 213 - 816 pg/mL 11/30/2024 8:10 AM EDT [facility] Blood Venipuncture / Unknown 11/30/2024 3:40 AM EDT 11/30/2024 4:09 AM EDT us Timothy Bai MD LAB BLOOD ORDERABLES Final Result Performing Organization Address City/[facility]/ZIP Co de Phone Number [facility] [address] [phone] * EKG-SCANNED (11/30/2024) Only the most recent of3 resultswithin the time period is included. Narrative 11/30/2024 Ordered by an unspecified provider. us Default Scanning Provider SCAN ORDERS Final Result from Last 3 Months Insurance [facility] Advance Directives For more information, please contact: [phone] * Full Code (Latest Code Status on File) Date Activated Date Inactivated Comments 11/30/2024 2:06 AM 12/14/2024 6:30 PM Care Teams Grounding Engineer Relationship Specialty Start Date End Date Provider, Not In System [place] PCP - General 12/14/24
--- OUTSIDE RECORDS SUMMARY | 2025-02-28 08:30 | XMS_ITS | Encounter Summary ---
Author Organization Healthcare Address [address] 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, unspecified vessel or lesion type (CMS/FORMERLY [facility]) Social History Tobacco Use Types Packs/Day Years [...] EDT Appointment [facility] [address] [place] [address] 03/22/2025 9:00 AM EDT Clinical Support [facility] [address] [facility] [address] [place] [address] 03/22/2025 10:30 AM EDT Office Visit [facility] [address] [place] [address] Geronimo Tran MD [address] [facility] [address] [place] [address] documented as of this encounter Visit Diagnoses Diagnosis CKD (chronic kidney disease) stage 2, GFR 60-89 ml/min Chronic kidney disease, Stage II (mild) Microalbuminuria Proteinuria 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, unspecified vessel or lesion type (CMS/HCC) documented in this encounter Additional Health Concerns Assessment Noted Time A fall risk assessment has been complete d for the patient 01/02/2022 1:17 PM EDT A Body Mass Index follow-up plan has been documented for the patient 11/13/2022 11:41 AM EDT documented as of this encounter Care Teams Rag Sorter Relationship Specialty Start Date End Date Larry Bedolla MD [address] [place] [address] PCP - General 12/08/20 01/18/25 Monika Hernandez APRN [address] [place] [address] PCP - General 01/19/25 Sary Brannon APRN [address] [place] [address] Referring Physician Gastroenterology 01/07/25 documented as of this encounter
--- OUTSIDE RECORDS SUMMARY | 2025-02-28 08:31 | XMS_ITS | Encounter Summary ---
Author Organization Healthcare Address [address] [place] [address] Care Team Providers Care Process Coach Name Role Phone Larry Bedolla MD Primary Care Provider + [phone] Sary Brannon APRN Unavailable [phone] Monika Hernandez APRN Primary Care Provider + [phone] Encounter Details Date Type Department Care Team (Late st Contact Info) Description 11/30/2024 Orders Only External Location [address] [place] [address] Provider, External Social History Tobacco Use Types Packs/Day Years [...] EDT Appointment [facility] [address] [place] [address] 03/22/2025 9:00 AM EDT Clinical Support [facility] [address] [facility] [address] [place] [address] 03/22/2025 10:30 AM EDT Office Visit [facility] [address] [place] [address] Geronimo Tran MD [address] [place] [address] documented as of this encounter Procedures Procedure Name Priority Date/Time Associated Diagnosis Comments XR OUTSIDE IMAGES 11/30/2024 11:19 AM EDT documented in this encounter Results * XR OUTSIDE IMAGES (11/30/2024 11:19 AM EDT) Anatomical Region Laterality Modality Radiographic Josiane ging 11/30/2024 11:1 9 AM EDT us External Provider IMG XR PROCEDURES Final Result documented in this encounter Visit Diagnoses Not on filedocumented in this encounter Additional Health Concerns Assessment Noted Time A fall risk assessment has been complete d for the patient 01/02/2022 1:17 PM EDT A Body Mass Index follow-up plan has been documented for the patient 11/13/2022 11:41 AM EDT documented as of this encounter Care Teams Process Coach Relationship Specialty Start Date End Date Larry Bedolla MD [address] [place] [address] PCP - General 12/08/20 01/18/25 Monika Hernandez APRN [address] [place] [address] PCP - General 01/19/25 Sary Brannon APRN [address] [place] [address] Referring Physician Gastroenterology 01/07/25 documented as of this encounter
--- OUTSIDE RECORDS SUMMARY | 2025-02-28 08:31 | XMS_ITS | Encounter Summary ---
Author Organization Healthcare Address [address] [place] [address] Care Team Providers Care Maintenance Director Name Role Phone Larry Bedolla MD Primary Care Provider + [phone] Sary Brannon APRN Unavailable [phone] Monika Hernandez APRN Primary Care Provider + [phone] Encounter Details Date Type Department Care Team (Late st Contact Info) Description 12/10/2024 Orders Only External Location [address] [place] [address] Provider, External Social History Tobacco Use Types [...] EDT Appointment [facility] [address] [place] [address] 03/22/2025 9:00 AM EDT Clinical Support [facility] [address] [facility] [address] [place] [address] 03/22/2025 10:30 AM EDT Office Visit [facility] [address] [place] [address] [place] [address] Geronimo Tran MD [address] [place] [address] documented as of this encounter Procedures Procedure Name Priority Date/Time Associated Diagnosis Comments US OUTSIDE IMAGES 12/10/2024 10:39 AM EDT documented in this encounter Results * US OUTSIDE IMAGES (12/10/2024 10:39 AM EDT) Anatomical Region Laterality Modality Ultrasound 12/10/2024 10:3 9 AM EDT us External Provider IMG US PROCEDURES Final Result documented in this encounter Visit Diagnoses Not on filedocumented in this encounter Additional Health Concerns Assessment Noted Time A fall risk assessment has been complete d for the patient 01/02/2022 1:17 PM EDT A Body Mass Index follow-up plan has been documented for the patient 11/13/2022 11:41 AM EDT documented as of this encounter Care Teams Maintenance Director Relationship Specialty Start Date End Date Larry Bedolla MD [address] [place] [address] PCP - General 12/08/20 01/18/25 Monika Hernandez APRN [address] [place] [address] PCP - General 01/19/25 Sary Brannon [address]N [address] [facility] [address] [place] [address] Referring Physician Gastroenterology 01/07/25 documented as of this encounter
--- OUTSIDE RECORDS SUMMARY | 2025-02-28 08:31 | XMS_ITS | Encounter Summary ---
Author Organization Healthcare Address [address] [place] [address] Care Team Providers Care Financial Analyst Accountant Name Role Phone Larry Bedolla MD Primary Care Provider + [phone] Sary Brannon APRN Unavailable [phone] Monika Hernandez APRN Primary Care Provider + [phone] Encounter Details Date Type Department Care Team (Late st Contact Info) Description 12/07/2024 Orders Only External Location [address] [place] [address] Provider, External Social History Tobacco Use Types [...] EDT Appointment [facility] [address] [place] [address] 03/22/2025 9:00 AM EDT Clinical Support [facility] [address] [place] [address] 03/22/2025 10:30 AM EDT Office Visit [facility] [address] [place] [address] Geronimo Tran MD [address] [place] [address] documented as of this encounter Procedures Procedure Name Priority Date/Time Associated Diagnosis Comments XR OUTSIDE IMAGES 12/07/2024 2:03 PM EDT documented in this encounter Results * XR OUTSIDE IMAGES (12/07/2024 2:03 PM EDT) Anatomical Region Laterality Modality Radiographic Josiane ging 12/07/2024 2:03 PM EDT us External Provider IMG XR PROCEDURES [...] documented as of this encounter Care Teams Financial Analyst Accountant Relationship Specialty Start Date End Date Larry Bedolla MD [address] [place] [address] PCP - General 12/08/20 01/18/25 Monika Hernandez APRN [address] [place] [address] PCP - General 01/19/25 Sary Brannon APRN [address] [facility] [address] [place] [address] Referring Physician Gastroenterology 01/07/25 documented as of this encounter
--- OUTSIDE RECORDS SUMMARY | 2025-02-28 08:31 | XMS_ITS | Encounter Summary ---
Author Organization Healthcare Address [address] [place] [address] Care Team Providers Care Powertrain Engineer Name Role Phone Larry Bedolla MD Primary Care Provider + [phone] Sary Brannon APRN Unavailable [phone] Monika Hernandez APRN Primary Care Provider [phone] Encounter Details Date Type Department Care Team (Late st Contact Info) Description 04/02/2017 Orders Only External Location [address] [place] [address] Provider, External Social History Tobacco Use Types [...] EDT Appointment [facility] [address] [place] [address] 03/22/2025 9:00 AM EDT Clinical Support [facility] [address] [facility] [address] [place] [address] 03/22/2025 10:30 AM EDT Office Visit [facility] [place] [address] [facility] [address] [place] [address] Geronimo Tran MD [address] [facility] [address] [place] [address] documented as of this encounter Procedures Procedure Name Priority Date/Time Associated Diagnosis Comments MR OUTSIDE IMAGES 04/02/2017 8:14 AM EDT documented in this encounter Results * MR transfer of outside films (04/02/2017 8:14 AM EDT) Anatomical Region Laterality Modality Magnetic Resonan ce 04/02/2017 8:14 AM EDT us External Provider IMG MRI PROCEDURES Final Resul t documented in this encounter Visit Diagnoses Not on filedocumented in this encounter Care Teams Powertrain Engineer Relationship Specialty Start Date End Date Larry Bedolla MD [address] [place] [address] PCP - General 12/08/20 01/18/25 Monika Hernandez APRN [address] [place] [address] PCP - General 01/19/25 Sary Brannon APRN [address] [place] [address] [address] [place] [address] Referring Physician Gastroenterology 01/07/25 documented as of this encounter
--- OUTSIDE RECORDS SUMMARY | 2025-02-28 08:31 | XMS_ITS | Encounter Summary ---
Author Organization Healthcare Address [address] [place] [address] Care Team Providers Care Public Safety Telecommunicator Name Role Phone Larry Bedolla MD Primary Care Provider + [phone] Sary Brannon APRN Unavailable [phone] Monika Hernandez APRN Primary Care Provider + [phone] Encounter Details Date Type Department Care Team (Late st Contact Info) Description 12/06/2024 Orders Only External Location [address] [place] [address] Provider, External Social History Tobacco Use Types [...] EDT Appointment [facility] [address] [place] [address] 03/22/2025 9:00 AM EDT Clinical Support [facility] [address] [facility] [address] [place] [address] 03/22/2025 10:30 AM EDT Office Visit [facility] [address] [place] [address] Geronimo Tran MD [address] [place] [address] documented as of this encounter Procedures Procedure Name Priority Date/Time Associated Diagnosis Comments XR OUTSIDE IMAGES 12/06/2024 7:31 AM EDT documented in this encounter Results * XR OUTSIDE IMAGES (12/06/2024 7:31 AM EDT) Anatomical Region Laterality Modality Radiographic Josiane ging 12/06/2024 7:31 AM EDT us External Provider IMG XR [...] documented as of this encounter Care Teams Public Safety Telecommunicator Relationship Specialty Start Date End Date Larry Bedolla MD [address] [place] [address] PCP - General 12/08/20 01/18/25 Monika Hernandez APRN [address] [place] [address] PCP - General 01/19/25 Sary Brannon APRN [address] [facility] [address] [place] [address] Referring Physician Gastroenterology 01/07/25 documented as of this encounter
--- OUTSIDE RECORDS SUMMARY | 2025-02-28 08:31 | XMS_ITS | Encounter Summary ---
Author Organization Healthcare Address [address] [place] [address] Care Team Providers Care Granulator Tender Name Role Phone Larry Bedolla MD Primary Care Provider + [phone] Sary Brannon APRN Unavailable [phone] Monika Hernandez APRN Primary Care Provider + [phone] Encounter Details Date Type Department Care Team (Late st Contact Info) Description 12/02/2024 Orders Only External Location [address] [place] [address] Provider, External Social History Tobacco Use Types [...] EDT Appointment [facility] [address] [place] [address] 03/22/2025 9:00 AM EDT Clinical Support [facility] [address] [place] [address] 03/22/2025 10:30 AM EDT Office Visit [facility] [address] [place] [address] Geronimo Tran MD [address] [place] [address] documented as of this encounter Procedures Procedure Name Priority Date/Time Associated Diagnosis Comments CT ABDOMEN OUTSIDE IMAGES 12/02/2024 10:40 AM EDT documented in this encounter Results * CT ABDOMEN OUTSIDE IMAGES (12/02/2024 10:40 AM EDT) Anatomical Region Laterality Modality Computed Tomogra phy 12/02/2024 10:4 0 AM EDT us External Provider IMG CT PROCEDURES Final Result documented in this encounter Visit Diagnoses Not on filedocumented in this encounter Additional Health Concerns Assessment Noted Time A fall risk assessment has been complete d for the patient 01/02/2022 1:17 PM EDT A Body Mass Index follow-up plan has been documented for the patient 11/13/2022 11:41 AM EDT documented as of this encounter Care Teams Granulator Tender Relationship Specialty Start Date End Date Larry Bedolla MD [address] [place] [address] PCP - General 12/08/20 01/18/25 Monika Hernandez APRN [address] [place] [address] PCP - General 01/19/25 Sary Brannon APRN [address] [facility] [address] [place] [address] Referring Physician Gastroenterology 01/07/25 documented as of this encounter
--- OUTSIDE RECORDS SUMMARY | 2025-02-28 08:31 | XMS_ITS | Encounter Summary ---
Author Organization Healthcare Address [address] [place] [address] Care Team Providers Care Hydrologic Modeler Name Role Phone Larry Bedolla MD Primary Care Provider + [phone] Sary Brannon APRN Unavailable [phone] Monika Hernandez APRN Primary Care Provider + [phone] Encounter Details Date Type Department Care Team (Late st Contact Info) Description 12/09/2024 Orders Only External Location [address] [place] [address] Provider, External Social History Tobacco Use Types [...] EDT Appointment [facility] [address] [place] [address] 03/22/2025 9:00 AM EDT Clinical Support [facility] [address] [facility] [address] [place] [address] 03/22/2025 10:30 AM EDT Office Visit [facility] [address] [place] [address] Geronimo Tran MD [address] [place] [address] documented as of this encounter Procedures Procedure Name Priority Date/Time Associated Diagnosis Comments XR OUTSIDE IMAGES 12/09/2024 6:51 AM EDT documented in this encounter Results * XR OUTSIDE IMAGES (12/09/2024 6:51 AM EDT) Anatomical Region Laterality Modality Radiographic Josiane ging 12/09/2024 6:51 AM EDT us External Provider IMG XR [...] documented as of this encounter Care Teams Hydrologic Modeler Relationship Specialty Start Date End Date Larry Bedolla MD [address] [place] [address] PCP - General 12/08/20 01/18/25 Monika Hernandez APRN [address] [place] [address] PCP - General 01/19/25 Sary Brannon APRN [address] [facility] [address] [place] [address] Referring Physician Gastroenterology 01/07/25 documented as of this encounter
--- OUTSIDE RECORDS SUMMARY | 2025-02-28 08:31 | XMS_ITS | Clinical Summary ---
Author Organization [facility] ([place], [place], [place], [place]) Address [address] [place] [address] Care Team Providers Care Cane Burner Name Role Phone Provider, Not In System [...] Problem Noted Date Diagnosed Date Anasarca 11/30/2024 Meltye 11/29/2024 Encounters Date Type Department Care Team Description 12/06/2024 Telephone [facility] - [place] [address] [place] [address] Mimi Moreno RN Appointment 12/01/2024 9:19 AM EDT - 12/01/2024 9:50 AM EDT Surgery [facility] Endoscopy 1 [place] [id number] Scott Daley MD EGD, WITH FOREIGN BODY REMOVAL 12/01/2024 8:55 AM EDT Anesthesia Event [facility] Endoscopy 1 [place] [phone] Ashtyn Sanchez MD 11/30/2024 1:43 AM EDT - 12/14/2024 5:30 PM EDT Hospital Encounter [facility] 5B Medical Telemetry Unit 1 [place] [phone] Albert Garcia MD Shamsulddin, Haider, MD Zohary, Yasser, MD Majeed, Irfan, MD Edie, QUIQUE Thomas Enoch, MD Melena (Primary Dx); [facility] Discharge Disposition: Home or Self Care 11/30/2024 [...] your living situation today? I have a [employer] place to live 11/30/2024 Think about the [...] Do you speak a language other than [facility] at [facility]? No 11/30/2024 Do you want help [...] years 1-dose series) 2022 COVID-19 VACCINE ( - season) 2024 05/13/2021, 04/15/2021, 11/08/2020 Medicare IPPE ([facility] to [place] [facility]) [id number] 07/28/2024 Influenza Vaccine (#1) 2025 [...] GLUCOSE POC Routine 12/13/2024 5:46 AM EDT [facility] CBC SCAN Routine 12/13/2024 3:15 AM EDT [...] GLUCOSE POC Routine 12/12/2024 5:43 AM EDT [facility] CBC SCAN Routine 12/12/2024 3:47 AM EDT [...] PARACENTESIS Routine 11/30/2024 4:17 PM EDT CYTOLOGY ([facility]) AP Routine 11/30/2024 4:03 PM EDT Melena PROTEIN, BODY FLUID Routine 11/30/2024 4 :03 PM EDT GLUCOSE, BODY FLUID Routine 11/30/2024 4 :03 PM EDT BODY FLUID/CSF- PATH REVIEW LAB ONLY ([facility]) Routine 11/30/2024 4:03 PM EDT Melena [facility] DIFFERENTIAL, BODY FLUID Routine 11/30/2024 4:03 PM [...] 110 mg/dL 12/14/2024 3:42 PM EDT [facility] Comment: In the event of poor peripheral blood flow, venous or arterial blood should be used due to the potential of erroneous results. Notified Nurse RBV Assistant Hairstylist [id number] 12/14/2024 3:42 PM EDT [facility] Blood WHOLE BLOOD / Unknown 12/14/2024 3:41 PM EDT 12/14/2024 3:42 PM EDT Narrative [facility] - 12/14/2024 3:42 PM EDT Assistant Hairstylist ID is - [id number] David Coffman PA-C POINT OF CARE TEST ORDERABLES Final Result [facility] [address] [phone] * ECG 12 lead (12/14/2024 9:10 AM EDT) Only the most recent of13 resultswithin the time period is included. VENTRICULAR RATE EKG/MIN 89 BPM GE MUSE ATRIAL RATE (MCT) 89 BPM GE MUSE WI Interval 146 ms GE MUSE QRS-INTERVAL (MSEC) 86 ms GE MUSE QT Interval 432 ms GE MUSE QTC Interval 525 ms GE MUSE P Lerona 34 degrees GE MUSE R AXIS (MCT) -13 degrees GE MUSE T Wave Lerona -2 degrees GE MUSE [place] Diagnosis Normal sinus rhythm Septal infarct (cited on or before 14-DEC-2024 ) Confirmed by DEYSI JON M.D. ([id number]) on 12/14/2024 5:07:26 PM GE MUSE 12/14/2024 9:10 AM EDT 12/14/2024 5:07 PM EDT us Deysi Jon MD ECG ORDERABLES Final Result GE MUSE * (ABNORMAL) CBC with automated diff (12/14/2024 2:54 AM EDT) Only the most recent of7 resultswithin the time period is included. WBC 1.4(LL) 4.0 - 10.0 K/ L 12/14/2024 3:45 AM EDT [facility] RBC 2.45(L) 3.93 - 5.22 M/ L 12/14/2024 3:45 AM EDT [facility] Hemoglobin 7.6(L) 11.2 - 15.7 GM/DL 12/14/2024 3:45 AM EDT [facility] Hematocrit 24.1(L) 34.1 - 44.9 % 12/14/2024 3:45 AM EDT [facility] MCV 98(H) 79 - 95 fL 12/14/2024 3:45 AM EDT [facility] MCH 31.0 25.6 - 32.2 pg 12/14/2024 3:45 AM EDT [facility] MCHC 31.5(L) 32.2 - 35.5 GM/DL 12/14/2024 3:45 AM EDT [facility] RDW 16.3(H) 11.7 - 14.4 % 12/14/2024 3:45 AM EDT [facility] Platelets 51(L) 140 - 375 K/CU MM 12/14/2024 3:45 AM EDT [facility] MPV 12.3 9.4 - 12.3 fL 12/14/2024 3:45 AM EDT [facility] % Neutros 54 34 - 71 % 12/14/2024 3:45 AM EDT [facility] % Lymphs 32 19 - 52 % 12/14/2024 3:45 AM EDT [facility] % Monos 14(H) 5 - 13 % 12/14/2024 3:45 AM EDT [facility] % Eos 0(L) 1 - 6 % 12/14/2024 3:45 AM EDT [facility] % Baso 1 0 - 1 % 12/14/2024 3:45 AM EDT [facility] NRBC Absolute <0.01 0 - 0.012 K/ul 12/14/2024 3:45 AM EDT [facility] # Neutros 0.76(L) 1.56 - 6.13 K/ L 12/14/2024 3:45 AM EDT [facility] # Lymphs 0.45(L) 1.18 - 3.74 K/ L 12/14/2024 3:45 AM EDT [facility] # Monos 0.19(L) 0.24 - 0.86 K/ L 12/14/2024 3:45 AM EDT [facility] # Eos <0.03(L) 0.04 - 0.36 K/ L 12/14/2024 3:45 AM EDT [facility] # Baso <0.03 0.01 - 0.08 K/ L 12/14/2024 3:45 AM EDT [facility] Immature Granulocytes-Re lative 0.00(L) 0.01 - 0.43 % 12/14/2024 3:45 AM EDT [facility] # IG <0.03 0.00 - 0.03 K/uL 12/14/2024 3:45 AM EDT [facility] Blood Venipuncture / Unknown 12/14/2024 2:54 AM EDT 12/14/2024 3:27 AM EDT Narrative [facility] - 12/14/2024 3:45 AM [...] LAB BLOOD ORDERABLES Final Re sult [facility] [address] [place] [id number], [facility] [phone] * (ABNORMAL) Comprehensive metabolic panel (12/14/2024 2:54 AM EDT) Only the most recent of9 resultswithin the time period is included. Sodium 145 136 - 145 meq/L 12/14/2024 4:13 AM EDT [facility] Potassium 3.5 3.4 - 5.1 meq/L 12/14/2024 4:13 AM EDT [facility] Chloride 109 98 - 112 meq/L 12/14/2024 4:13 AM EDT [facility] CO2 27 22 - 29 meq/L 12/14/2024 4:13 AM EDT [facility] Calcium 8.6 8.4 - 10.2 mg/dL 12/14/2024 4:13 AM EDT [facility] Glucose 146(H) 82 - 115 mg/dL 12/14/2024 4:13 AM EDT [facility] BUN 67.7(H) 9.8 - 20.1 mg/dL 12/14/2024 4:13 AM EDT [facility] Creatinine 2.22(H) 0.57 - 1.11 mg/dL 12/14/2024 4:13 AM EDT [facility] BUN/Creatinine 30(H) 8 - 20 12/14/2024 4:13 AM EDT [facility] eGFR (mL/min/1.73m2) 25(L) >=60 mL/min/1. 73m2 12/14/2024 4:13 AM EDT [facility] Albumin 3.2(L) 3.5 - 5.0 g/dL 12/14/2024 4:13 AM EDT [facility] Alkaline Phosphatase 56 40 - 150 U/L 12/14/2024 4:13 AM EDT [facility] ALT 21 <=34 U/L 12/14/2024 4:13 AM EDT [facility] Comment: ALT2 reagent used for testing does not contain P5P supplementation and therefore may miss ALT elevations in patients with B6 deficiency. This population may be as high as 10% in the [place], with risk factors including malabsorption, drug interactions, and alcoholic hepatitis. AST 52(H) 11 - 34 U/L 12/14/2024 4:13 AM EDT [facility] Comment: AST2 reagent used for testing does not contain P5P supplementation and therefore may miss AST elevations in patients with B6 deficiency. This population may be as high as 10% in the [place], with risk factors including malabsorption, drug interactions, and alcoholic hepatitis. Total Bilirubin 0.9 0.2 - 1.2 mg/dL 12/14/2024 4:13 AM EDT [facility] Protein, Total 5.9(L) 6.4 - 8.3 g/dL 12/14/2024 4:13 AM EDT [facility] Globulin 2.7 2.5 - 4.1 g/dL 12/14/2024 4:13 AM EDT [facility] Anion Gap 13(H) 4 - 12 12/14/2024 4:13 AM EDT [facility] A/G Ratio 1.2 0.7 - 1.9 12/14/2024 4:13 AM EDT [facility] Osmolality Calc 311.0 mOsm/kg 4:13 AM EDT [facility] Blood Venipuncture / Unknown 12/14/2024 2:54 AM EDT 12/14/2024 3:26 AM EDT David Coffman PA-C LAB BLOOD ORDERABLES Final Re sult [facility] [address] [phone] * (ABNORMAL) CBC Scan (12/13/2024 3:15 AM EDT) Only the most recent of2 resultswithin the time period is included. Platelet Estimate Decreased (A) Adequate 12/13/2024 4:55 AM EDT [facility] RBC Morphology abnormal( A) Normal 12/13/2024 4:55 AM EDT [facility] Anisocytosis 1+ 12/13/2024 4:55 AM EDT [facility] Hypochromia 1+ 12/13/2024 4:55 AM EDT [facility] Ovalocytes 1+ 12/13/2024 4:55 AM EDT [facility] Blood Venipuncture / Unknown 12/13/2024 3:15 AM EDT 12/13/2024 3:27 AM EDT us Venkatesh Stehpen MD LAB BLOOD ORDERABLES Final Resul t [facility] [address] [phone] * (ABNORMAL) Hepatic function panel (12/13/2024 3:15 AM EDT) Protein, Total 5.7(L) 6.4 - 8.3 g/dL 12/13/2024 4:13 AM EDT [facility] Albumin 3.1(L) 3.5 - 5.0 g/dL 12/13/2024 4:13 AM EDT [facility] Total Bilirubin 0.8 0.2 - 1.2 mg/dL 12/13/2024 4:13 AM EDT [facility] Bilirubin, Direct 0.4 0.0 - 0.5 mg/dL 12/13/2024 4:13 AM EDT [facility] Alkaline Phosphatase 53 40 - 150 U/L 12/13/2024 4:13 AM EDT [facility] Globulin 2.6 2.5 - 4.1 g/dL 12/13/2024 4:13 AM EDT [facility] A/G Ratio 1.2 0.7 - 1.9 12/13/2024 4:13 AM EDT [facility] AST 42(H) 11 - 34 U/L 12/13/2024 4:13 AM EDT [facility] Comment: AST2 reagent used for testing does not contain P5P supplementation and therefore may miss AST elevations in patients with B6 deficiency. This population may be as high as 10% in the [place], with risk factors including malabsorption, drug interactions, and alcoholic hepatitis. ALT 16 <=34 U/L 12/13/2024 4:13 AM EDT [facility] Comment: ALT2 reagent used [...] LAB BLOOD ORDERABLES Final Resu lt [facility] [address] [phone] * (ABNORMAL) Basic Metabolic Panel (12/13/2024 3:15 AM EDT) Only the most recent of6 resultswithin the time period is included. Sodium 147(H) 136 - 145 meq/L 12/13/2024 4:13 AM EDT [facility] Potassium 3.5 3.4 - 5.1 meq/L 12/13/2024 4:13 AM EDT [facility] CO2 27 22 - 29 meq/L 12/13/2024 4:13 AM EDT [facility] Chloride 110 98 - 112 meq/L 12/13/2024 4:13 AM EDT [facility] Glucose 135(H) 82 - 115 mg/dL 12/13/2024 4:13 AM EDT [facility] BUN 71.9(H) 9.8 - 20.1 mg/dL 12/13/2024 4:13 AM EDT [facility] Creatinine 2.29(H) 0.57 - 1.11 mg/dL 12/13/2024 4:13 AM EDT [facility] BUN/Creatinine 31(H) 8 - 20 12/13/2024 4:13 AM EDT [facility] Calcium 8.5 8.4 - 10.2 mg/dL 12/13/2024 4:13 AM EDT [facility] Anion Gap 14(H) 4 - 12 12/13/2024 4:13 AM EDT [facility] eGFR (mL/min/1.73m2) 24(L) >=60 mL/min/1.7 3m2 12/13/2024 4:13 AM EDT [facility] Osmolality Calc 315.6 mOsm/kg 4:13 AM EDT [facility] Blood Venipuncture / Unknown 12/13/2024 3:15 AM EDT 12/13/2024 3:39 AM EDT us Venkatesh Stephen MD LAB BLOOD ORDERABLES Final Resul t [facility] [address] [phone] * US paracentesis (12/10/2024 11:37 AM EDT) [...] Ascites. ATTENDING PHYSICIAN: Dr. Haseeb Gil PHYSICIAN DREDGE DECKHAND: Sujit Blackman PA-C FINDINGS: After informed consent [...] Ascites. ATTENDING PHYSICIAN: Dr. Haseeb Gil PHYSICIAN DREDGE DECKHAND: Sujit Blackman PA-C FINDINGS: After informed consent [...] Blackman PA-C. us Mary Carmen Mcfadden MD [facility] US ORDERABLES Final Result * ALT (SGPT) (12/10/2024 9:53 AM EDT) ALT 12 <=34 U/L 12/10/2024 11:02 AM EDT [facility] Comment: ALT2 reagent used [...] LAB BLOOD ORDERABLES Final Resul t [facility] [address] [phone] * (ABNORMAL) AST (SGOT) (12/10/2024 9:53 AM EDT) AST 39(H) 11 - 34 U/L 12/10/2024 11:02 AM EDT [facility] Comment: AST2 reagent used for testing does not contain P5P supplementation and therefore may miss AST elevations in patients with B6 deficiency. This population may be as high as 10% in the [place], with risk factors including malabsorption, drug interactions, and alcoholic hepatitis. [employer] has become aware of sulfasalazine and sulfapyridine [...] LAB BLOOD ORDERABLES Final Resul t [facility] [address] [phone] * Magnesium (12/10/2024 9:53 AM EDT) Only the most recent of9 resultswithin the time period is included. Magnesium 2.3 1.6 - 2.6 mg/dL 12/10/2024 11:02 AM EDT [facility] Blood Venipuncture / Unknown 12/10/2024 9:53 AM EDT 12/10/2024 10:39 AM EDT Deysi Jon MD LAB BLOOD ORDERABLES Final Resul t [facility] [address] [phone] * XR chest AP portable (12/10/2024 9:10 [...] - 7.45 12/10/2024 6:51 AM EDT [facility] pCO2, Arterial 49(H) 35 - 45 mm Hg 12/10/2024 6:51 AM EDT [facility] pO2, Arterial 119(H) 80 - 100 mm Hg 12/10/2024 6:51 AM EDT [facility] HCO3, Arterial 24 20 - 26 mmol/L 12/10/2024 6:51 AM EDT [facility] Base Excess, Arterial -2.4(L) -2.0 - 2.0 mmol/L 12/10/2024 6:51 AM EDT [facility] O2 Sat, Arterial >99.2 95.0 - 100.0 % 12/10/2024 6:51 AM EDT [facility] Comment:notified at read-anny k verification CTO2 ARTERIAL 11.9 mmol/L 12/10/2024 6:51 AM EDT [facility] THB ARTERIAL 8.5(L) 12.0 - 18.0 g/dL 12/10/2024 6:51 AM EDT [facility] SJ COLLECTION SITE Left Radial 12/10/2024 6:51 AM EDT [facility] Arterial Puncture Yes 12/10/2024 6:51 AM EDT [facility] Blood Gas O2 Delivery Device Cannula 12/10/2024 6:51 AM EDT [facility] Oxygen Flow Rate 4 12/11/19 6:51 AM EDT [facility] Blood Gas PT Temperature C 37.0 12/10/2024 6:51 AM EDT [facility] Sen's Test Acceptable 12/10/2024 6:51 AM EDT [facility] ABG Number of Draw Attempts 1 12/10/2024 6:51 AM EDT [facility] FIO2 12/10/2024 6:51 AM EDT [facility] Blood Gas Temperature Corrected Results No No 12/10/2024 6:51 AM EDT [facility] Blood, Arterial Collection / Unknown 12/10/2024 6:42 AM EDT 12/10/2024 6:51 AM EDT us Blanka Alvarez MD LAB BLOOD ORDERABLES Final Re sult [facility] [address] [phone] * (ABNORMAL) CBC - Hemogram ([facility]) (12/09/2024 3:38 AM EDT) Only the most recent of8 resultswithin the time period is included. WBC 2.4(L) 4.0 - 10.0 K/ L 12/09/2024 3:59 AM EDT [facility] RBC 2.83(L) 3.93 - 5.22 M/ L 12/09/2024 3:59 AM EDT [facility] Hemoglobin 8.5(L) 11.2 - 15.7 GM/DL 12/09/2024 3:59 AM EDT [facility] Hematocrit 28.0(L) 34.1 - 44.9 % 12/09/2024 3:59 AM EDT [facility] MCV 99(H) 79 - 95 fL 12/09/2024 3:59 AM EDT [facility] MCH 30.0 25.6 - 32.2 pg 12/09/2024 3:59 AM EDT [facility] MCHC 30.4(L) 32.2 - 35.5 GM/DL 12/09/2024 3:59 AM EDT [facility] RDW 17.2(H) 11.7 - 14.4 % 12/09/2024 3:59 AM EDT [facility] Platelets 55(L) 140 - 375 K/CU MM 12/09/2024 3:59 AM EDT [facility] MPV 11.5 9.4 - 12.3 fL 12/09/2024 3:59 AM EDT [facility] Blood Venipuncture / Unknown 12/09/2024 3:38 AM EDT 12/09/2024 3:45 AM EDT us Mary Carmen Mcfadden MD LAB BLOOD ORDERABLES Final Resu lt [facility] [address] [place] [id number] [phone] * Erythropoietin(SENDOUT) (12/07/2024 3:59 AM EDT) Erythropoietin 19 4 - 27 mU/mL 12/08/2024 2:30 PM EDT [facility] Comment: INTERPRETIVE INFORMATION: Erythropoietin Normal serum concentrations [...] may benefit from therapy with recombinant EPO ([facility] [id number]). Performed By: [facility] [address] [place] [address] Director Of Enterprise Applications: Lalo Mortensen MD, PhD CLIA Number: [id number] Blood Venipuncture / Unknown 12/07/2024 3:59 AM EDT 12/07/2024 4:11 AM EDT us Ariel Mills MD LAB BLOOD ORDERABLES Final Res ult [facility] [address] [place] [address], [facility] [phone] * Ammonia (12/07/2024 3:59 AM EDT) Only the most recent of8 resultswithin the time period is included. Ammonia 44 18 - 72 mol/L 12/07/2024 4:37 AM EDT [facility] Blood Venipuncture / Unknown 12/07/2024 3:59 AM EDT 12/07/2024 4:22 AM EDT Timothy Bai MD LAB BLOOD ORDERABLES Final Result Performing Organization Address City/[facility]/ZIP Co de Phone Number [facility] [address] [phone] * (ABNORMAL) Ferritin (12/06/2024 3:13 AM EDT) Only the most recent of2 resultswithin the time period is included. Ferritin 256.82(H) 4.63 - 204.00 ng/mL 12/06/2024 8:25 AM EDT [facility] Blood Venipuncture / Unknown 12/06/2024 3:13 AM EDT 12/06/2024 3:50 AM EDT Ariel Mills MD LAB BLOOD ORDERABLES Final Res ult Performing Organization Address [facility] [place]/[facility]/ZIP Co de Phone Number [facility] [address] [phone] * (ABNORMAL) Hemoglobin (12/05/2024 3:36 PM EDT) Only the most recent of11 resultswithin the time period is included. Hemoglobin 8.1(L) 11.2 - 15.7 GM/DL 12/05/2024 3:57 PM EDT [facility] Blood Venipuncture / Unknown 12/05/2024 3:36 PM EDT 12/05/2024 3:47 PM EDT us Timothy Bai MD LAB BLOOD ORDERABLES Final Result Performing Organization Address City/[facility]/ZIP Co de Phone Number [facility] [address] [phone] * ANCA Vasculitis Profile(SENDOUT) (12/04/2024 8:15 AM EDT) Myeloperoxidase (MPO) Ab, IgG 0 0 - 19 AU/mL 12/07/2024 8:52 AM EDT [facility] Comment: INTERPRETIVE INFORMATION: Myeloperoxidase Abs, IgG 19 AU/mL or Less ......... Negative 20-25 AU/mL .............. Equivocal 26 AU/mL or Greater ...... Positive Approximately 90% of patients with a P-ANCA pattern by IFA have antibodies specific for MPO. Serine Proteinase 3 (PR3) Ab, IgG 0 0 - 19 AU/mL 12/07/2024 8:52 AM EDT [facility] Comment: INTERPRETIVE INFORMATION: Serine Proteinase 3, IgG 19 AU/mL or Less ........ Negative 20-25 AU/mL ............. Equivocal 26 AU/mL or Greater ..... Positive Approximately 85% of patients with a C-ANCA pattern by IFA have antibodies specific for PR3. ANCA IFA Titer <1:20 <1:20 12/07/2024 8:52 AM EDT [facility] ANCA IFA Pattern None Detected None Detected 12/07/2024 8:52 AM EDT [facility] Comment: INTERPRETIVE INFORMATION: ANCA IFA Pattern Neutrophil Cytoplasmic Antibodies (C-ANCA = granular cytoplasmic staining, P-ANCA = perinuclear staining) are found in the serum of over 90 percent of patients with certain necrotizing systemic vasculitides, and usually in less than 5 percent of patients with collagen vascular disease or arthritis. Performed By: [facility] [address] [place] [address] Director Of Enterprise Applications: Lalo Mortensen MD, PhD CLIA Number: [id number] Blood Venipuncture / Unknown 12/04/2024 8:15 AM EDT 12/04/2024 8:32 AM EDT us Hema Cervantes MD LAB BLOOD ORDERABLES Final Re sult [facility] [address] [phone] * JEANA Reflexive Profile(SENDOUT) (12/04/2024 8:15 AM EDT) Anti-Nuclear Ab (JEANA), IgG by SHARON None Detected None Detected 12/06/2024 3:51 PM EDT [facility] Comment: No Anti-Nuclear Antibodies (JEANA) detected by SHARON. The Extractable Nuclear Antigen Antibodies (PHOTORESIST CONTACT PRINTER, Llanes, SSA 52, SSA 60, Scleroderma, Lilia-1 and SSB) and Double Stranded DNA (dsDNA) Antibody, IgG will not be performed. If suspicion of connective tissue disease is strong, and JEANA is negative by SHARON, consider testing for JEANA by IFA ([id number]). INTERPRETIVE INFORMATION: Anti-Nuclear Antibodies (JEANA), IgG by SHARON Antinuclear Antibodies (JEANA), IgG by SHARON: JEANA specimens are screened using enzyme-linked immunosorbent assay (SHARON) methodology. All SHARON results reported as Detected are further tested by indirect fluorescent assay (IFA) using HEp-2 substrate with an IgG-specific conjugate. The JEANA SHARON screen is designed to detect antibodies against dsDNA, histones, SS-A (Ro), SS-B (La), Llanes, Llanes/PHOTORESIST CONTACT PRINTER, Scl-70, Lilia-1, centromeric proteins, other antigens extracted from the HEp-2 cell nucleus. JEANA SHARON assays have been reported to have lower sensitivities than JEANA IFA for systemic autoimmune rheumatic diseases (SARD). Negative results do not necessarily rule out SARD. Performed By: [facility] [address] [place] [address] Director Of Enterprise Applications: Lalo Mortensen MD, PhD CLIA Number: [id number] Blood Venipuncture / Unknown 12/04/2024 8:15 AM EDT 12/04/2024 8:32 AM EDT us Hema Cervantes MD LAB BLOOD ORDERABLES Final Re sult [facility] [address] [place] [address], [facility] [phone] * Phosphorus (12/04/2024 3:34 AM EDT) Pathologist [facility] Phosphorus 4.2 2.5 - 4.5 mg/dL 12/04/2024 4:04 AM EDT [facility] Blood Venipuncture / Unknown 12/04/2024 3:34 AM EDT 12/04/2024 3:41 AM EDT us Kirstymalinda Tuttle APRN LAB BLOOD ORDERABLES Final R esult Performing Organization Address City/[facility]/ZIP Co de Phone Number [facility] [address] [phone] * Creatine Kinase (CK) (12/03/2024 7:39 AM EDT) Only the most recent of2 resultswithin the time period is included. Total CK 55 29 - 168 U/L 12/03/2024 6:19 PM EDT [facility] Blood Venipuncture / Unknown 12/03/2024 7:39 AM EDT 12/03/2024 5:52 PM EDT us Hema Cervantes MD LAB BLOOD ORDERABLES Final Re sult Performing Organization Address City/[facility] Co de Phone Number [facility] [address] [place] [address] * Transfuse RBC (12/02/2024 5:03 PM EDT) [...] Pancytopenia. ATTENDING RADIOLOGIST: Dr. Haseeb Gil. PHYSICIAN DREDGE DECKHAND: Sandra Ramsey PA-C PROCEDURE: After informed consent [...] Pancytopenia. ATTENDING RADIOLOGIST: Dr. Haseeb Gil. PHYSICIAN DREDGE DECKHAND: Sandra Ramsey PA-C PROCEDURE: After informed consent [...] Sandra Ramsey PA-C. us Laura Batista MD [facility] ORDERABLES Final Result * [facility] BONE MARROW SMEAR, ASPIRATION, AND STAIN (12/02/2024 12:06 PM EDT) AP RESULT See Note: [facility] Comment: [facility] [address] [place] [address] or [phone] Joe Carlos M.D., Shirring Machine Operator PATIENT NAME LABORATORY NO. [id number] MARY GAR. [id number] [facility] AGE SEX SSN CLIENT REF # [id number] F [id number] [address] [place] [address] REQUESTING Aleksandr ATTENDING Aleksandr. COPY TO.. CLAIRELAURA SIMS DATE COLLECTED DATE RECEIVED DATE REPORTED 12/02/2024 12/02/2024 12/06/2024 ADDENDUM PRESENT ADDENDUM: Cytogenetics shows a normal female karyotype, 46,XX[20]. The original diagnosis remains unchanged. Verified by Heydi Mak M.D., MPH on 12/13/2024 Professional interpretation rendered by Heydi Mak M.D., MPH at [employer], [address] [place] [address]. DIAGNOSIS: PERIPHERAL SMEAR , BONE MARROW ASPIRATION [...] CD38, CD45, CD56, CD57, CD117, CD123, HLA-DR, Clarion, and Lambda. These tests use analyte specific [...] rendered by Heydi Mak M.D., MPH at [employer], [employer], [address] [place] [address]. GROSS DESCRIPTION: A. Received 1 peripheral blood smear slide for review. B. Received 5 bone marrow aspirate smear slides for review. 4 additional bone marrow aspirate smear slides made at [facility]. C. Received in a purple top tube [...] BY: Heydi Mak M.D., MPH CPT CODES: 54638, [id number], 03282, [id number], [id number], 83623, 38975, [id number] Bone Marrow BONE MARROW STRUCTURE / Unknown 12/02/2024 12:06 PM EDT us Laura Batista MD PATHOLOGY/CYTOLOGY ORDERABLES Edited Result - Final PATH[facility]Y [facility]TOLOGY LABORATORY [address] [place] [address] * Prepare RBC: 1 Units (12/02/2024 9:36 AM EDT) Only the most recent of2 resultswithin the time period is included. Issue Date/Time [id number] [facility] [place] Product Identification Red Blood Cells [facility] [place]) Product Code [id number] [facility] [place] Status Information Transfused [facility]) Unit Number [id number] YUSEF [facility] ([place]) Blood Type 5100 [facility] [place]) Cross Match Results Compatible [facility] ([place]) us Timothy Bai MD [id number] BANK PRO DUCT ORDERABLES Final Result [facility] ([place]) [address] [phone] * (ABNORMAL) Hemoglobin and hematocrit (12/02/2024 7:40 AM EDT) Hemoglobin 7.4(L) 11.2 - 15.7 GM/DL 12/02/2024 9:43 AM EDT [facility] Hematocrit 23.4(L) 34.1 - 44.9 % 12/02/2024 9:43 AM EDT [facility] Blood Venipuncture / Unknown 12/02/2024 7:40 AM EDT 12/02/2024 7:47 AM EDT us Timothy Bai MD LAB BLOOD ORDERABLES Final Result [facility] [address] [place] [address], [facility] [phone] * AN SINGLE LUMEN INTUBATION (12/01/2024 9:01 AM EDT) Narrative Rolo Stauffer CRNA - 12/01/2024 9:01 AM EDT Rolo Stuaffer CRNA 12/01/2024 9:07 AM Intubation Authorized by: [...] ABO/Rh O Positive 12/01/2024 4:53 AM EDT [place] [facility] ([place]) Antibody Screen Negative 12/01/2024 4:53 AM EDT [facility] ([place]) HISTCHK HIST CHECK PERFORMED 12/01/2024 4:53 AM EDT [facility] [place]) Blood Venipuncture / Unknown 12/01/2024 7:08 AM EDT 12/01/2024 7:15 AM EDT us Denilson Hodgson DO [facility] BLOOD BANK TEST ORDERABLES Final Result Performing Organization Address [facility] [place]/[facility]/ZIP Co de Phone Number [facility] ([place]) 1 [facility] [place] [address], [facility] [phone] * ABO/RH Confirmation/Retype (12/01/2024 4:06 AM EDT) RETYPE O Positive 12/01/2024 5:15 AM EDT [facility] ([place]) Comment:[id number] Blood Venipuncture / Unknown 12/01/2024 4:06 AM EDT 12/01/2024 5:14 AM EDT us Timothy Bai MD [facility] BLOOD BANK TEST ORDERA BLES Final Result Performing Organization Address [facility] [place] Co de Phone Number [facility] [place] 1 [facility] [place] [address], [facility] [phone] * Ultrasound renal limited (11/30/2024 4:19 PM [...] 25 % 025 8:49 PM EDT [facility] Lymphocytes Fluid 46 % 025 8:49 PM EDT [facility] Unidentified Mononuclear Cells BF 49 0 - 0 % 11/30/2024 8:49 PM EDT [facility] Peritoneal Fluid BODY FLUID / Unknown 11/30/2024 4:03 PM EDT 11/30/2024 4:33 PM EDT us Huey Hurtado MD BODY FLUIDS AND STOOLS ORDERABLE S Final Result [facility] [address] [phone] * [facility] Non-Professor Of Industrial Technology Cytology (11/30/2024 4:03 PM EDT) AP RESULT See Note: PATH[facility]Y AND CYTOLOGY LABORATORY Comment: [facility] Laboratories [address] [place] [address] or [phone] Joe Carlos M.D., Shirring Machine Operator PATIENT NAME LABORATORY NO. MARY OLIVA. [id number] AGE SEX SSN CLIENT REF # [facility] 64 1960 F [id number] 1 [facility] REQUESTING Aleksandr ATTENDING [place] [address] HUEY HURTADO DATE COLLECTED DATE RECEIVED DATE REPORTED 11/30/2024 12/01/2024 12/02/2024 DIAGNOSIS: PERITONEAL FLUID: Negative for malignant cells. MICROSCOPIC DESCRIPTION: Scattered mesothelial cells and chronic inflammatory cells are present. Professional interpretation rendered by John Sanchez M.D., F.C.A.P. at [facility], [address] [place] [address]. CLINICAL HISTORY: Melena Anasarca Acute renal failure SPECIMENS SUBMITTED: PERITONEAL FLUID GROSS SPECIMEN DESCRIPTION: 40 ccs of hazy, light yellow fluid, scant sediment, received in fixative ThinPrep slides prepared. Cell block has been examined. DIP FILLER: SVITLANA HERNANDEZ (ASCP) REVIEWED, DIAGNOSED AND ELECTRONICALLY SIGNED BY: John Sanchez M.D., F.C.A.P. CPT CODES: [id number], [id number] Peritoneal Fluid BODY FLUID / Unknown 11/30/2024 4:03 PM EDT us Huey Hurtado MD PATHOLOGY/CYTOLOGY ORDERABLES Fi nal Result [facility]TOLOGY LABORATORY [address] [place] [address] * AFB Culture And Stain (11/30/2024 4:03 PM EDT) Result No Acid Fast Bacilli isolated at 6 weeks 01/11/2025 5:00 PM EDT [facility] AFB Smear No acid fast bacilli seen 01/11/2025 5:00 PM EDT [facility] Peritoneal Fluid BODY FLUID / Unknown 11/30/2024 4:03 PM EDT 11/30/2024 4:34 PM EDT Narrative [facility] - 01/11/2025 5:00 PM EDT Specimen Description: peritoneal fluid us Huey Hurtado MD MICROBIOLOGY - GENERAL ORDERABLE S Final Result [facility] [address] [phone] * Body Fluid/CSF - Path Review () (11/30/2024 4:03 PM EDT) SENT TO PATHOLOGY FOR REVIEW Yes 12/03/2024 6:54 AM EDT [facility] Scan Result Mesothelial cells. MD German 12/02/2024 12/03/2024 6:54 AM EDT [facility] Peritoneal Fluid BODY FLUID / Unknown 11/30/2024 4:03 PM EDT 11/30/2024 4:33 PM EDT Result Archana Hurtado MD BODY FLUIDS AND STOOLS ORDERABLE S Final Result [facility] [address] [phone] * Fungus Culture W/ROSA MARIA Or Nimisha Ink (11/30/2024 4:03 PM EDT) Result No fungus isolated at 6 weeks. 01/11/2025 5:00 PM EDT [facility] ROSA MARIA Prep No fungal elements seen 01/11/2025 5:00 PM EDT [facility] Peritoneal Fluid BODY FLUID / Unknown 11/30/2024 4:03 PM EDT 11/30/2024 4:34 PM EDT Narrative [facility] - 01/11/2025 5:00 PM EDT Specimen Description: peritoneal fluid us Huey Hurtado MD MICROBIOLOGY - GENERAL ORDERABLE S Final Result [facility] [address] [phone] * Glucose, body fluid (11/30/2024 4:03 PM EDT) Glucose, Body Fluid 107 See Comment mg/dL 12/01/2024 7:10 AM EDT [facility] BODY FLUID TYPE Peritoneal 12/01/2024 7:10 AM EDT [facility] Body Fluid PERITONEAL FLUID / Unknown 11/30/2024 4:03 PM EDT 12/01/2024 6:52 AM EDT Narrative [facility] - 12/01/2024 7:10 AM EDT This test has been modified from the civil engineering director's instructions and its performance characteristics were determined [...] ORD ERABLES Final Result Performing Organization Address [facility] [place]/[facility]/ZIP Co de Phone Number [facility] [address] [phone] * Anaerobic Culture (11/30/2024 4:03 PM EDT) Result No Anaerobic growth 12/05/2024 6:34 AM EDT [facility] Peritoneal Fluid BODY FLUID / Unknown 11/30/2024 4:03 PM EDT 11/30/2024 4:34 PM EDT Narrative [facility] - 12/05/2024 6:34 AM EDT Specimen Description: peritoneal fluid us Huey Hurtado MD MICROBIOLOGY - GENERAL ORDERABLE S Final Result Performing Organization Address City/[facility]/ZIP Co de Phone Number [facility] [address] [phone] * Body Fluid Culture + Gram Stain (11/30/2024 4:03 PM EDT) Result No growth 12/03/2024 9:07 AM EDT [facility] Gram Stain Result No organisms seen 12/03/2024 9:07 AM EDT [facility] Gram Stain Result No cells seen 12/03/2024 9:07 AM EDT [facility] Peritoneal Fluid BODY FLUID / Unknown 11/30/2024 4:03 PM EDT 11/30/2024 4:34 PM EDT [facility] - 12/03/2024 9:07 AM EDT Specimen Description: peritoneal fluid Huey Hurtado MD MICROBIOLOGY - GENERAL ORDERABLE S Final Result [facility] [address] [phone] * (ABNORMAL) Body fluid cell count with differential (11/30/2024 4:03 PM EDT) Appearance Cloudy(A) Clear 11/30/2024 8:49 PM EDT [facility] Color Yellow 11/30/2024 8:49 PM EDT [facility] BODY FLUID TYPE Peritoneal 11/30/2024 8:49 PM EDT [facility] Auto WBC/Nucleated Cells BF 85 /uL 11/30/2024 8:49 PM EDT [facility] Comment: Please refer to specific WBC/Nucleated Cell Count Body Fluid reference ranges below: For Pleural: 0-1000 Peritoneal: 0-1000 Pericardial:0-1000 Synovial: 0-200 Auto RBC BF <3,000 /uL 11/30/2024 8:49 PM EDT [facility] Comment: Please refer to specific RBC Cell Count Body Fluid reference ranges below: Pleural: 0-10,000 Peritoneal: 0-10,000 Pericardial:0-10,000 Synovial:0-30 Peritoneal Fluid BODY FLUID / Unknown 11/30/2024 4:03 PM EDT 11/30/2024 4:33 PM EDT [facility] - 11/30/2024 8:49 PM EDT There is normally no readily obtainable pleural, peritoneal and pericardial fluid, hence normal elements for these potential fluids are not defined. us Huey Hurtado MD BODY FLUIDS AND STOOLS ORDERABLE S Final Result Performing Organization Address [facility] [place]/[facility]/ZIP Co de Phone Number [facility] [address] [phone] * Protein, body fluid (11/30/2024 4:03 PM EDT) Protein, Fluid 1.9 See Comment g/dL 12/01/2024 7:10 AM EDT [facility] BODY FLUID TYPE Peritoneal 12/01/2024 7:10 AM EDT [facility] Body Fluid PERITONEAL FLUID / Unknown 11/30/2024 4:03 PM EDT 12/01/2024 6:52 AM EDT [facility] - 12/01/2024 7:10 AM EDT This test has been modified from the civil engineering director's instructions and its performance characteristics were determined by the laboratory. The reference intervals and other method performance specifications are unavailable for this test. It is recommended to interpret body fluid concentrations in comparison with the corresponding serum or plasma concentrations and to integrate test results into the clinical context. Timothy Bai MD BODY FLUIDS AND STOOLS ORD ERABLES Final Result Performing Organization Address [facility] [place] Co de Phone Number [facility] [address] [phone] * Lactate dehydrogenase (LDH), body fluid (11/30/2024 4:03 PM EDT) LDH, Fluid 71 See Comment U/L 11/30/2024 6:19 PM EDT [facility] BODY FLUID TYPE Peritoneal 11/30/2024 6:19 PM EDT [facility] Peritoneal Fluid BODY FLUID / Unknown 11/30/2024 4:03 PM EDT 11/30/2024 4:33 PM EDT [facility] - 11/30/2024 6:19 PM EDT This test has been modified from the civil engineering director's instructions and its performance characteristics were determined by the laboratory. The reference intervals and other method performance specifications are unavailable for this test. It is recommended to interpret body fluid concentrations in comparison with the corresponding serum or plasma concentrations and to integrate test results into the clinical context. us Huey Hurtado MD BODY FLUIDS AND STOOLS ORDERABLE S Final Result [facility] [address] [phone] * (ABNORMAL) Urinalysis, Reflex Microscopic and Culture If Indicated (11/30/2024 11:35 AM EDT) Color, UA Light Yellow 11/30/2024 12:06 PM EDT [facility] Clarity, UA Turbid(A) Clear 11/30/2024 12:06 PM EDT [facility] Specific [place], UA 1.011 1.005 - 1.030 11/30/2024 12:06 PM EDT [facility] pH, UA 5.0(L) 6.0 - 8.0 11/30/2024 12:06 PM EDT [facility] Leukocytes, UA 500 Félix/uL(A) Negative 11/30/2024 12:06 PM EDT [facility] Nitrite, UA Negative Negative 11/30/2024 12:06 PM EDT [facility] Protein, UA Negative Negative 11/30/2024 12:06 PM EDT [facility] Glucose, UA Normal Normal 11/30/2024 12:06 PM EDT [facility] Ketones, UA Negative Negative 11/30/2024 12:06 PM EDT [facility] Bilirubin, UA Negative Negative 11/30/2024 12:06 PM EDT [facility] Blood, UA Negative Negative 11/30/2024 12:06 PM EDT [facility] Urobilinogen, UA Normal Normal 11/30/2024 12:06 PM EDT [facility] Specimen Source Urine, Clean Catch 11/30/2024 12:06 PM EDT [facility] Urine URINE SPECIMEN COLLECTION, CLEAN CATCH / Unknown 11/30/2024 11:35 AM EDT 11/30/2024 11:41 AM EDT us Destiney Llanes ATHLETIC EQUIPMENT MANAGER URINE ORDERABLES Final Resu lt Performing Organization Address [facility] [place]/ZIP Co de Phone Number [facility] [address] [phone] * (ABNORMAL) Urinalysis Microscopic Only (11/30/2024 11:35 AM EDT) WBC, UA 21-50(A) None Seen /HPF 11/30/2024 12:06 PM EDT [facility] RBC, UA 0-2(A) None Seen /HPF 11/30/2024 12:06 PM EDT [facility] Bacteria, UA 1+(A) None Seen, Trace 11/30/2024 12:06 PM EDT [facility] Mucus 1+(A) None Seen 11/30/2024 12:06 PM EDT [facility] SQUAMOUS EPITHELIAL 3-5(A) None Seen /HPF 11/30/2024 12:06 PM EDT [facility] HYALINE CASTS 21-50(A) None Seen /LPF 11/30/2024 12:06 PM EDT [facility] Urine URINE SPECIMEN COLLECTION, CLEAN CATCH / Unknown 11/30/2024 11:35 AM EDT 11/30/2024 11:41 AM EDT us Destiney Llanes ATHLETIC EQUIPMENT MANAGER URINE ORDERABLES Final Resu lt [facility] [address] [place] [address], [facility] [phone] * Urea Nitrogen, random urine (11/30/2024 11:35 AM EDT) Urea Nitrogen, Ur 305 mg/dL 11/30/2024 12:36 PM EDT [facility] Comment:Reference Range not established Urine 11/30/2024 11:3 5 AM EDT 11/30/2024 12:15 PM EDT Hill Boo MD URINE ORDERABLES Final Result [facility] [address] [phone] * Protein / creatinine ratio, urine (11/30/2024 11:35 AM EDT) Creatinine, Ur 62.00 47.00 - 110.00 mg/dL 11/30/2024 12:36 PM EDT [facility] Protein Creatinine Ratio 0.19 <=0.20 11/30/2024 12:36 PM EDT [facility] Protein, Urine 12 1 - 14 mg/dL 11/30/2024 12:36 PM EDT [facility] Urine 11/30/2024 11:3 5 AM EDT 11/30/2024 12:15 PM EDT Hill Boo MD URINE ORDERABLES Final Result Performing Organization Address [facility] [place]/ZIP Co de Phone Number [facility] [address] [phone] * Sodium, random urine (11/30/2024 11:35 AM EDT) Sodium Urine 83 See Comment meq/L 11/30/2024 12:36 PM EDT [facility] Comment:Reference Range not established Urine 11/30/2024 11:3 5 AM EDT 11/30/2024 12:15 PM EDT Hill Boo MD URINE ORDERABLES Final Result Performing Organization Address [facility] [place]/ZIP Co de Phone Number [facility] [address] [phone] * Urine Culture (11/30/2024 11:35 AM EDT) Result Recollect Specimen - 3 or more organisms suggests contamination 12/01/2024 6:49 AM EDT [facility] Urine URINE SPECIMEN COLLECTION, CLEAN CATCH / Unknown 11/30/2024 11:35 AM EDT 11/30/2024 11:41 AM EDT us Destiney Llanes APRN MICROBIOLOGY - GENERAL ORDE YAKELIN Final Result [facility] [address] [phone] * (ABNORMAL) Monoclonal Protein Study, Expanded Panel(SENDOUT) (11/30/2024 11:01 AM EDT) Total Protein, Serum 6.2(L) 6.3 - 8.2 g/dL 12/03/2024 12:57 PM EDT [facility] Albumin 2.71(L) 3.75 - 5.01 g/dL 12/03/2024 12:57 PM EDT [facility] Alpha 1 Globulin 0.34 0.19 - 0.46 g/dL 12/03/2024 12:57 PM EDT [facility] Alpha 2 Globulin 0.38(L) 0.48 - 1.05 g/dL 12/03/2024 12:57 PM EDT [facility] Beta Globulin 1.30(H) 0.48 - 1.10 g/dL 12/03/2024 12:57 PM EDT [facility] Gamma 1.47 0.62 - 1.51 g/dL 12/03/2024 12:57 PM EDT [facility] Immunofixation MAEGAN Done 12/03/2024 12:57 PM EDT [facility] Immunoglobulin G 1484 768 - 1632 mg/dL 12/03/2024 12:57 PM EDT [facility] Immunoglobulin A 686(H) 68 - 408 mg/dL 12/03/2024 12:57 PM EDT [facility] Immunoglobulin M 126 35 - 263 mg/dL 12/03/2024 12:57 PM EDT [facility] Monoclonal Protein Not Applicable <=0.00 g/dL 12/03/2024 12:57 PM EDT [facility] Clarion Qnt Free Light Chains 173.10(H) 3.30 - 19.40 mg/L 12/03/2024 12:57 PM EDT [facility] Comment: INTERPRETIVE INFORMATION: Clarion Qnt Free Light Chains Undetected antigen excess is a rare event but cannot be excluded. Free light chain results should always be interpreted in conjunction with other clinical and laboratory findings. Lambda Qnt Free Light Chains 123.84(H) 5.71 - 26.30 mg/L 12/03/2024 12:57 PM EDT [facility] Comment: INTERPRETIVE INFORMATION: Lambda Qnt Free Light Chains Undetected antigen excess is a rare event but cannot be excluded. Free light chain results should always be interpreted in conjunction with other clinical and laboratory findings. Clarion/Lambda Free Light Chain Ratio 1.40 0.26 - 1.65 12/03/2024 12:57 PM EDT [facility] SPEP/MAEGAN Interpretation See Note 12/03/2024 12:57 PM EDT [facility] Comment: Restricted band in the beta region [...] Serum See Note 12/03/2024 12:57 PM EDT [facility] Comment: Authorized individuals can access the Patient Feed Enhanced Report with an [facility] Connect account using the following link. Your local lab can assist you in obtaining the patient report if you don't have a Connect account. [email or web address] Performed By: [facility] [address] [place] [address] Director Of Enterprise Applications: Lalo Mortensen MD, PhD CLIA Number: [id number] Blood Venipuncture / Unknown 11/30/2024 11:01 AM EDT 11/30/2024 12:17 PM EDT Hill Boo MD LAB BLOOD ORDERABLES Final Resu lt [facility] [address] [place] [address] * Alpha Fetoprotein Tumor Marker(SENDOUT) (11/30/2024 11:01 AM EDT) Pathologist [facility] Alpha Fetoprotein Tumor Marker 2 0 - 9 ng/mL 12/01/2024 3:41 PM EDT [facility] Comment: INTERPRETIVE INFORMATION: Alpha Fetoprotein Tumor Marker [...] reference intervals for this test in the [facility] Laboratory Test Directory (Trendslide). Performed By: [facility] [address] [place] [address] Director Of Enterprise Applications: Lalo Mortensen MD, PhD CLIA Number: [id number] Blood Venipuncture / Unknown 11/30/2024 11:01 AM EDT 11/30/2024 11:06 AM EDT Destiney Llanes APRN LAB BLOOD ORDERABLES Final Result [facility] [address] [place] [address] * (ABNORMAL) Vitamin D, 25-Hydroxy (11/30/2024 8:20 AM EDT) [facility] Vitamin D 25-Hydroxy 22.0(L) 30 - 80 ng/mL 11/30/2024 9:48 AM EDT [facility] Blood Venipuncture / Unknown 11/30/2024 8:20 AM EDT 11/30/2024 9:08 AM EDT us Timothy Bai MD LAB BLOOD ORDERABLES Final Result Performing Organization Address [facility] [place]UST de Phone Number [facility] [address] [phone] * Hemoglobin A1c (11/30/2024 8:20 AM EDT) Hemoglobin A1C 4.9 4.0 - 5.6 % 11/30/2024 9:17 AM EDT [facility] Comment: Hemoglobin A1C levels are related to mean glucose during the preceding 2-3 months. Less than 7% demonstrates glycemic control in diabetic patients. Hemoglobin AlC % Suggested Diagnosis > or = 6.5 Diabetic 5.7 - 6.4 Prediabetic <5.7 Non-diabetic eAVG Glucose 93.93 70 - 126 mg/dL 11/30/2024 9:17 AM EDT [facility] Blood Venipuncture / Unknown 11/30/2024 8:20 AM EDT 11/30/2024 9:07 AM EDT us Huey Hurtado MD LAB BLOOD ORDERABLES Final Resul t Performing Organization Address [facility] [place] de Phone Number [facility] [address] [phone] * ECHO COMPLETE (DOPPLER / COLOR) WO CONTRAST (11/30/2024 7:50 AM EDT) Anatomical Region Laterality Modality Heart Vascular Ultraso und 11/30/2024 7:25 AM EDT Narrative 11/30/2024 10:46 AM EDT TRANSTHORACIC ECHOCARDIOGRAPHY REPORT Demographics Patient Name: RIN JONES : 1960 Age: 64 year(s) Corporate ID Number: [id number] Gender Female Fire Alarm Mechanic: Giovanna Rock Height: 67 inches [facility] Referring Physician: HUEY HURTADO Weight: 225 pounds Interpreting JESSICA RAYMOND MD BMI: 35.24 kg/m^2 Physician: Date of Service: 11/30/2024 Blood Pressure: 118/59 mmHg Room Number: 579 Type of Study: TTE procedure: ECHO COMPLETE (DOPPLER / COLOR) W OR WO CONTRAST. Patient Status: Routine IP Study Location: [facility] Quality: Adequate visualization History/Tech Notes: Indication: [...] 1.35 m/s E/A ratio: 0.97 m/s Volume [id number] LV length: 8.51 cm ml Volume ujqerasd04.96 ml LVOT diameter: 1.79 cm Normal sized [...] Valve TR velocity: 2.51 m/s TR gradient: 25.63361 mmHg Estimated RAP: 3 mmHg RVSP: 28.12 [...] 1960 Age: 64 year(s) Corporate ID Number: [id number] Gender Female Fire Alarm Mechanic: Giovanna Rock Height: 67 inches [facility] Referring Physician: HUEY HURTADO Weight: 225 pounds Interpreting JESSICA RAYMOND MD BMI: 35.24 kg/m^2 Physician: Date of Service: 11/30/2024 Blood Pressure: 118/59 mmHg Room Number: 579 Type of Study: TTE procedure: ECHO COMPLETE (DOPPLER / COLOR) W OR WO CONTRAST. Patient Status: Routine IP Study Location: [facility] Quality: Adequate visualization History/Tech Notes: Indication: [...] 1.35 m/s E/A ratio: 0.97 m/s Volume [id number] LV length: 8.51 cm ml Volume nzugvazh36.96 ml LVOT diameter: 1.79 cm Normal sized [...] Valve TR velocity: 2.51 m/s TR gradient: 25.11536 mmHg Estimated RAP: 3 mmHg RVSP: 28.12 [...] 5 days 12/05/2024 5:01 AM EDT [facility] Blood ENTIRE RIGHT UPPER ARM / Unknown Venipuncture / Unknown 11/30/2024 3:42 AM EDT 11/30/2024 4:09 AM EDT us Huey Hurtado MD MICROBIOLOGY - GENERAL ORDERABLE S Final Result Performing Organization Address [facility] [place] Co de Phone Number [facility] [address] [place] [address] * Lactic Acid with reflex (11/30/2024 3:40 AM EDT) Lactic Acid Level (mmol/L) 0.9 0.5 - 2.2 mmol/L 11/30/2024 5:37 AM EDT [facility] Blood Venipuncture / Unknown 11/30/2024 3:40 AM EDT 11/30/2024 4:10 AM EDT us Huey Hurtado MD LAB BLOOD ORDERABLES Final Resul t Performing Organization Address [facility] [place] Co de Phone Number [facility] [address] [phone] * Procalcitonin (11/30/2024 3:40 AM EDT) Procalcitonin 0.26 See Comment ng/mL 11/30/2024 5:07 AM EDT [facility] Comment: Sepsis comment <0.5 [...] ORDERABLES Final Resul t Performing Organization Address [facility] de Phone Number [facility] [address] [phone] * (ABNORMAL) Iron and TIBC (11/30/2024 3:40 AM EDT) Iron 63 50 - 170 ug/dL 11/30/2024 6:13 PM EDT [facility] TIBC 183(L) 250 - 435 ug/dL 11/30/2024 6:13 PM EDT [facility] % Saturation 34 % 11/30/2024 6:13 PM EDT [facility] UIBC 120 11/30/2024 6:13 PM EDT [facility] Blood Venipuncture / Unknown 11/30/2024 3:40 AM EDT 11/30/2024 4:09 AM EDT us Laura Batista MD LAB BLOOD ORDERABLES Final Res ult Performing Organization Address [facility] [place] de Phone Number [facility] [address] [phone] * aPTT (11/30/2024 3:40 AM EDT) aPTT 27.7 22.0 - 32.0 seconds 11/30/2024 4:32 AM EDT [facility] Blood Venipuncture / Unknown 11/30/2024 3:40 AM EDT 11/30/2024 4:10 AM EDT us Huey Hurtado MD LAB BLOOD ORDERABLES Final Resul t Performing Organization Address [facility] Co de Phone Number [facility] [address] [phone] * (ABNORMAL) Prothrombin time/INR (11/30/2024 3:40 AM EDT) Protime 12.9(H) 9.0 - 12.0 seconds 11/30/2024 4:32 AM EDT [facility] INR 1.17(H) 0.80 - 1.10 11/30/2024 4:32 AM EDT [facility] Comment: Recommended therapeutic ranges [...] ORDERABLES Final Resul t Performing Organization Address [facility] Co de Phone Number [facility] [address] [phone] * (ABNORMAL) Uric acid (11/30/2024 3:40 AM EDT) [facility] Uric Acid 11.2(H) 2.5 - 6.2 mg/dL 11/30/2024 12:18 PM EDT [facility] Blood Venipuncture / Unknown 11/30/2024 3:40 AM EDT 11/30/2024 4:09 AM EDT us Hill Boo MD LAB BLOOD ORDERABLES Final Resu lt Performing Organization Address [facility] Co de Phone Number [facility] [address] [phone] * (ABNORMAL) Lactate dehydrogenase (LDH) (11/30/2024 3:40 AM EDT) LDH 261(H) 125 - 220 U/L 11/30/2024 12:18 PM EDT [facility] Blood Venipuncture / Unknown 11/30/2024 3:40 AM EDT 11/30/2024 4:09 AM EDT us Hill Boo MD LAB BLOOD ORDERABLES Final Resu lt [facility] [address] [phone] * Iron, serum (11/30/2024 3:40 AM EDT) Pathologist [facility] Iron 64 50 - 170 ug/dL 11/30/2024 8:10 AM EDT [facility] Blood Venipuncture / Unknown 11/30/2024 3:40 AM EDT 11/30/2024 4:09 AM EDT us Timothy Bai MD LAB BLOOD ORDERABLES Final Result Performing Organization Address [facility]/ZIP Co de Phone Number [facility] [address] [phone] * Folate, Serum (11/30/2024 3:40 AM EDT) Pathologist [facility] Folate 7.0 7.0 - 31.4 ng/mL 11/30/2024 6:08 PM EDT [facility] Blood Venipuncture / Unknown 11/30/2024 3:40 AM EDT 11/30/2024 4:09 AM EDT us Laura Batista MD LAB BLOOD ORDERABLES Final Res ult Performing Organization Address [facility] [place]/ZIP Co de Phone Number [facility] [address] [phone] * Vitamin B12 (11/30/2024 3:40 AM EDT) Vitamin B12 678 213 - 816 pg/mL 11/30/2024 8:10 AM EDT [facility] Blood Venipuncture / Unknown 11/30/2024 3:40 AM EDT 11/30/2024 4:09 AM EDT us Timothy Bai MD LAB BLOOD ORDERABLES Final Result [facility] [address] [place] [id number] [phone] * EKG-SCANNED (11/30/2024) Only the most recent of3 resultswithin the time period is included. Narrative 11/30/2024 Ordered by an unspecified provider. us Default Scanning Provider SCAN ORDERS Final Result from Last 3 Months Insurance [facility] AD[facility] Advance Directives For more information, please contact: [phone] * Full Code (Latest Code Status on File) Date Activated Date Inactivated Comments 11/30/2024 2:06 AM 12/14/2024 6:30 PM Care Teams Cane Burner Relationship Specialty Start Date End Date Provider, Not In System [place] PCP - General 12/14/24
--- OUTSIDE RECORDS SUMMARY | 2025-02-28 08:31 | XMS_ITS | Encounter Summary ---
Author Organization Healthcare Address [address] [place] [address] Care Team Providers Care Mortgage Loan Computation Clerk Name Role Phone Larry Bedolla MD Primary Care Provider + [phone] Sary Brannon APRN Unavailable [phone] Monika Hernandez APRN Primary Care Provider [phone] Encounter Details Date Type Department Care Team (Late st Contact Info) Description 12/31/2024 Orders Only External Location [address] [place] [address] Monika Hernandez APRN [address] [place], [place] [id number] Social History Tobacco Use Types Packs/Day Years [...] EDT Appointment [facility] Radiology [address] [place] [address] 03/22/2025 9:00 AM EDT Clinical Support [facility] [address] [place] [address] 03/22/2025 10:30 AM EDT Office Visit [facility] [place] [address] [place] [phone] Geronimo Tran MD [address] [place] [address] documented as of this encounter Procedures Procedure Name Priority Date/Time Associated Diagnosis Comments US OUTSIDE IMAGES 12/31/2024 7:33 AM EDT documented in this encounter Results * US OUTSIDE IMAGES (12/31/2024 7:33 AM EDT) Anatomical Region Laterality Modality Ultrasound 12/31/2024 7:33 AM EDT us Monika Hernandez GAMES DEALER IMG US PROCEDURES Final Result documented in this encounter Visit Diagnoses Not on filedocumented in this encounter Additional Health Concerns Assessment Noted Time A fall risk assessment has been complete d for the patient 01/02/2022 1:17 PM EDT A Body Mass Index follow-up plan has been documented for the patient 11/13/2022 11:41 AM EDT documented as of this encounter Care Teams Mortgage Loan Computation Clerk Relationship Specialty Start Date End Date Larry Bedolla MD [address] [place] [address] PCP - General 12/08/20 01/18/25 Monika Hernandez APRN [address] [place] [address] PCP - General 01/19/25 Sary Brannon APRN [address] [facility] [address] [place] [address] Referring Physician Gastroenterology 01/07/25 documented as of this encounter
--- OUTSIDE RECORDS SUMMARY | 2025-02-28 08:31 | XMS_ITS | Encounter Summary ---
Author Organization Healthcare Address [address] [place] [address] Care Team Providers Care Rn Embedded Name Role Phone Larry Bedolla MD Primary Care Provider + [phone] Sary Brannon APRN Unavailable [phone] Monika Hernandez APRN Primary Care Provider + [phone] Encounter Details Date Type Department Care Team (Late st Contact Info) Description 12/04/2024 Orders Only External Location [address] [place] [address] Provider, External Social History Tobacco Use Types [...] EDT Appointment [facility] Radiology [address] [place] [address] 03/22/2025 9:00 AM EDT Clinical Support [facility] [address] [facility] [address] [place] [address] 03/22/2025 10:30 AM EDT Office Visit [facility] [address] [place] [phone] Geronimo Tran MD [address] [place] [address] documented as of this encounter Procedures Procedure Name Priority Date/Time Associated Diagnosis Comments XR OUTSIDE IMAGES 12/04/2024 6:49 AM EDT documented in this encounter Results * XR OUTSIDE IMAGES (12/04/2024 6:49 AM EDT) Anatomical Region Laterality Modality Radiographic Josiane ging 12/04/2024 6:49 AM EDT us External Provider IMG XR [...] documented as of this encounter Care Teams Rn Embedded Relationship Specialty Start Date End Date Larry Bedolla MD [address] [place] [address] PCP - General 12/08/20 01/18/25 Monika Hernandez APRN [address] [place] [address] PCP - General 01/19/25 Sary Brannon APRN [address] [facility] [address] [place] [address] Referring Physician Gastroenterology 01/07/25 documented as of this encounter
--- OUTSIDE RECORDS SUMMARY | 2025-02-28 08:31 | XMS_ITS | Encounter Summary ---
Author Organization Healthcare Address [address] [place] [address] Care Team Providers Care Clinical Documentation Clerk Name Role Phone Larry Bedolla MD Primary Care Provider + [phone] Sary Brannon APRN Unavailable [phone] Monika Hernandez APRN Primary Care Provider + [phone] Encounter Details Date Type Department Care Team (Late st Contact Info) Description 01/21/2022 Community [facility] [address] [place] [address] Larry Bedolla MD [address] [place], [place] [id number] Central stenosis of spinal canal (Primary Dx) [...] Appointment [facility] Radiology [address] [place] [address] 03/22/2025 9:00 AM EDT Clinical Support [facility] [place] [address] [place] [address] 03/22/2025 10:30 AM EDT Office Visit [facility] [address] [place] [address] Geronimo Tran MD [address] [place] [address] documented as of this encounter Visit Diagnoses Diagnosis Central stenosis of spinal canal- Primary documented in this encounter Additional Health Concerns Assessment Noted Time A fall risk assessment has been complete d for the patient 01/02/2022 1:17 PM EDT documented as of this encounter Care Teams Clinical Documentation Clerk Relationship Specialty Start Date End Date Larry Bedolla MD [address] [place] [address] PCP - General 12/08/20 01/18/25 Monika Hernandez APRN [address] [place] [address] PCP - General 01/19/25 Sary rBannon APRN [address] [facility] [address] [place] [address] Referring Physician Gastroenterology 01/07/25 documented as of this encounter
--- OUTSIDE RECORDS SUMMARY | 2025-02-28 08:31 | XMS_ITS | Encounter Summary ---
Author Organization Healthcare Address [address] [place] [address] Care Team Providers Care Dry Man Name Role Phone Larry Bedolla MD Primary Care Provider + [phone] Sary Brannon APRN Unavailable [phone] Monika Hernandez APRN Primary Care Provider + [phone] Encounter Details Date Type Department Care Team (Late st Contact Info) Description 11/29/2024 Orders Only External Location [address] [place] [address] Provider, External Social History Tobacco Use Types [...] EDT Appointment [facility] [address] [place] [address] 03/22/2025 9:00 AM EDT Clinical Support [facility] [address] [facility] [address] [place] [address] 03/22/2025 10:30 AM EDT Office Visit [facility] [address] [place] [address] Geronimo Tran MD [address] [place] [address] documented as of this encounter Procedures Procedure Name Priority Date/Time Associated Diagnosis Comments CT MSK OUTSIDE IMAGES 11/29/2024 9:37 PM EDT documented in this encounter Results * CT MSK OUTSIDE IMAGES (11/29/2024 9:37 PM EDT) Anatomical Region Laterality Modality Computed Tomogra phy 11/29/2024 9:37 PM EDT External Provider IMG CT PROCEDURES Final Result documented in this encounter Visit Diagnoses Not on filedocumented in this encounter Additional Health Concerns Assessment Noted Time A fall risk assessment has been complete d for the patient 01/02/2022 1:17 PM EDT A Body Mass Index follow-up plan has been documented for the patient 11/13/2022 11:41 AM EDT documented as of this encounter Care Teams Dry Man Relationship Specialty Start Date End Date Larry Bedolla MD [address] [place] [address] PCP - General 12/08/20 01/18/25 Monika Hernandez APRN [address] [place] [address] PCP - General 01/19/25 Sary Brannon APRN [address] [facility] [address] [place] [address] Referring Physician Gastroenterology 01/07/25 documented as of this encounter
--- OUTSIDE RECORDS SUMMARY | 2025-02-28 08:31 | XMS_ITS | Encounter Summary ---
Author Organization Healthcare Address [address] [place] [address] Care Team Providers Care Rn Flight Name Role Phone Larry Bedolla MD Primary Care Provider + [phone] Sary Brannon APRN Unavailable [phone] Monika Hernandez APRN Primary Care Provider [phone] Reason for Referral * Consultation (Routine) - Closed Specialty Diagnoses / Procedures Referred By Mayela may Referred To Contact Hepatology Diagnoses Bilious vomiting with nausea Anticentromere antibodies present Thrombopenia (CMS/HCC) Stage 3 hepatic fibrosis Raul Kincaid PA [address] [place] [address] Phone: tel: fax: Referral ID Status Reason Start Date Expiration Date V isits Requested Visits Authorized [id number] Closed Specialty Services Required 09/27/2021 03/29/2023 1 1 Encounter Details Date Type Department Care Team (Late st Contact Info) Description 09/27/2021 Community [facility] Community Practice [address] [place] [address] Raul Kincaid PA [address] [place] [address] Bilious vomiting with nausea (Primary Dx); [...] EDT Appointment [facility] Radiology [address] [place] [address] 03/22/2025 9:00 AM EDT Clinical Support [facility] [place] [address] [facility] [address] [place] [address] 03/22/2025 10:30 AM EDT Office Visit [facility] [place] [address] [facility] [address] [place] [address] Geronimo Tran MD [address] [facility] [address] [place] [address] Scheduled Referrals Name Type Priority Associated Diagnoses [...] fibrosis documented in this encounter Care Teams Rn Flight Relationship Specialty Start Date End Date Larry Bedolla MD [address] [place] [address] PCP - General 12/08/20 01/18/25 Monika Hernandez APRN [address] [place] [address] PCP - General 01/19/25 Sary Brannon APRN [address] [place] [address] [address] [address] Referring Physician Gastroenterology 01/07/25 documented as of this encounter
--- OUTSIDE RECORDS SUMMARY | 2025-02-28 08:31 | XMS_ITS | Encounter Summary ---
Author Organization [facility] Address [address] [place] [address] Care Team Providers Care Operations And Maintenance Supervisor Name Role Phone Sary Brannon ÁNGEL Unavailable [phone] Monika Hernandez APRN Primary Care Provider [phone] Reason for Referral * Consultation (Routine) - Closed Specialty Diagnoses / Procedures Referred By Mayela may Referred To Contact Transplant Diagnoses End-stage liver disease (CMS/HCC) Edil Kiran MD [address] [address] Phone: tel: fax: [facility] [place] [address] [address] Phone: tel: fax: Referral ID Status Reason Start Date Expiration Date V isits Requested Visits Authorized [id number] Closed Specialty Services Required 01/19/2025 07/21/2026 1 1 Reason for Visit * Reason Comments Appointment scheduling Encounter Details Date Type Department Care Team ([facility] Contact Info) Description 01/19/2025 Telephone [facility] [place] [address] [address] [place] [address] Appointment (scheduling) Social History Tobacco Use Types [...] EDT Appointment [facility] Radiology [address] [place] [address] 03/22/2025 9:00 AM EDT Clinical Support [facility] [place] [address] [facility] [address] [place] [address] 03/22/2025 10:30 AM EDT Office Visit [facility] [place] [address] [facility] [address] [place] [address] Geronimo Tran MD [address] [facility] [address] [place] [address] Scheduled Orders Name Type Priority Associated Diagnoses Orde r Schedule Comprehensive Urine Drug Screening, Qualitative Assay, >= [...] until 07/23/2026 documented as of this encounter Results * (ABNORMAL) Hepatitis A Antibody IgG (02/22/2025 7:18 AM EDT) Pathologist [facility] Hepatitis A Antibody IgG Positive(A ) Negative 02/22/2025 8:[address] [facility] Blood Venous blood specimen / Unknown Venipuncture / Unknown 02/22/2025 7:18 AM EDT 02/22/2025 7:48 AM EDT Edil Kiran MD LAB BLOOD ORDERABLES Final Resul t Performing Organization Address City/[facility] Co de Phone Number [facility] [address] [place] [address] * HEPATITIS B SURFACE ANTIBODY, QUANTITATIVE (02/22/2025 7:18 AM EDT) Pathologist [facility] Hepatitis B Surface Antibody, Quantitative <8.00 NonReactiv e: <8, Grayzone: 8 - <12, Reactive: >= 12 mIU/mL 02/22/2025 8:44 AM EDT [facility] Comment: Nonreactive. Individual is considered not immune to HBV infection. Blood Venous blood specimen / Unknown Venipuncture / Unknown 02/22/2025 7:18 AM EDT 02/22/2025 7:48 AM EDT us Edil Kiran MD LAB BLOOD ORDERABLES Final Resul t Performing Organization Address City/[facility] Co de Phone Number [facility] [address] [place] [address] * Hepatitis B Surface Antigen (02/22/2025 7:18 AM EDT) Pathologist [facility] Hepatitis B Surf Antigen Negative Negative 02/22/2025 8:44 AM EDT [facility] Blood Venous blood specimen / Unknown Venipuncture / Unknown 02/22/2025 7:18 AM EDT 02/22/2025 7:48 AM EDT us Edil Kiran MD LAB BLOOD ORDERABLES Final Resul t Performing Organization Address [facility] Co de Phone Number [facility] [address] [place] [address] * Hepatitis C Antibody (02/22/2025 7:18 AM EDT) Hepatitis C Antibody Negative Negative 02/22/2025 8:29 AM EDT [facility] Blood Venous blood specimen / Unknown Venipuncture / Unknown 02/22/2025 7:18 AM EDT 02/22/2025 7:48 AM EDT Edil Kiran MD LAB BLOOD ORDERABLES Final Resul t Performing Organization Address [facility] Phone Number [facility] [address] [place] [address] * Nicotine Cotinine Metabolite (02/22/2025 7:18 AM EDT) Pathologist [facility] NICOTINE <5 <5 ng/mL 02/24/2025 2:3 4 PM EDT [facility] Cotinine <5 <5 ng/mL 02/24/2025 2:3 4 PM EDT [facility] Blood Venous blood specimen / Unknown Venipuncture / Unknown 02/22/2025 7:18 AM EDT 02/22/2025 7:46 AM EDT Narrative [facility] - 02/24/2025 2:34 PM EDT Testing performed by LC-MS/MS at the [facility]. This test was developed and its performance characteristics determined by [facility]. This assay has not been cleared by the FDA. The laboratory is regulated under CLIA as qualified to perform high-complexity testing. This test is used for clinical purposes. us Edil Kiran MD LAB BLOOD ORDERABLES Final Resul t Performing Organization Address [facility] Co de Phone Number [facility] [address] [place] [address] * (ABNORMAL) Protime-INR (02/22/2025 7:18 AM EDT) Prothrombin Time 18.7(H) 12.0 - 14.3 sec LAB COAGULATION METHOD 02/22/2025 8:04 AM EDT [facility] INR 1.6(H) 0.9 - 1.1 LAB COAGULATION METHOD 02/22/2025 8:04 AM EDT [facility] Blood Venous blood specimen / Unknown Venipuncture / Unknown 02/22/2025 7:18 AM EDT 02/22/2025 7:46 AM EDT Narrative [facility] - 02/22/2025 8:04 AM EDT OPTIMAL INR RANGES FOR PATIENT ON ORAL ANTICOAGULANT THERAPY Prevention of venous thromboembolism INR 2.0 to 3.0 In patients with heart disease: Atrial fibrillation INR 2.0 to 3.0 Valvular heart disease INR 2.0 to 3.0 Tissue heart valves INR 2.0 to 3.0 Mechanical prosthetic valves INR 2.5 to 3.5 Prevention of recurrent ME INR 2.5 to 3.5 Edil Kiran MD LAB BLOOD ORDERABLES Final Resul t Performing Organization Address [facility] Co de Phone Number [facility] [address] [place] [address] * (ABNORMAL) Comprehensive metabolic panel (02/22/2025 7:18 AM EDT) Glucose, Plasma 283(H) 74 - 99 mg/dL 02/22/2025 8:16 AM EDT [facility] BUN, Plasma 30(H) 8 - 23 mg/dL 02/22/2025 8:16 AM EDT [facility] Creatinine, Plasma 2.54(H) 0.60 - 1.10 mg/dL 02/22/2025 8:16 AM EDT [facility] BUN/Creatinine Ratio 12 02/22/2025 8:16 AM EDT [facility] Sodium, Plasma 137 136 - 145 mmol/L 02/22/2025 8:16 AM EDT [facility] Potassium, Plasma 4.3 3.6 - 4.9 mmol/L 02/22/2025 8:16 AM EDT [facility] Chloride, Plasma 105 97 - 107 mmol/L 02/22/2025 8:16 AM EDT [facility] CO2, Plasma 24 22 - 29 mmol/L 02/22/2025 8:16 AM EDT [facility] Anion Gap 8 6 - 16 mmol/L 02/22/2025 8:16 AM EDT [facility] Total Calcium, Plasma 8.6(L) 8.9 - 10.2 mg/dL 02/22/2025 8:16 AM EDT [facility] Total Protein 7.2 6.3 - 7.9 g/dL 02/22/2025 8:16 AM EDT [facility] Albumin, Plasma 2.9(L) 3.5 - 5.2 g/dL 02/22/2025 8:16 AM EDT [facility] AST, Plasma 37(H) 10 - 35 U/L 02/22/2025 8:16 AM EDT [facility] ALT, Plasma 15 10 - 35 U/L 02/22/2025 8:16 AM EDT [facility] Alkaline Phosphatase, Plasma 121 46 - 142 U/L 02/22/2025 8:16 AM EDT [facility] Total Bilirubin, Plasma 0.9 0.2 - 1.1 mg/dL 02/22/2025 8:16 AM EDT [facility] eGFRcr 20.9 mL/min/1.7 3m*2 02/22/2025 8:16 AM EDT [facility] Comment:Reported eGFRcr in m L/min/1.73m2 is based the CKD-EPI 2020 equation that does not use a race coefficient. Blood Venous blood specimen / Unknown Venipuncture / Unknown 02/22/2025 7:18 AM EDT 02/22/2025 7:47 AM EDT us Edil Kiran MD LAB BLOOD ORDERABLES Final Resul t [facility] [address] [place] [address] * (ABNORMAL) Hemogram (CBC) (02/22/2025 7:18 AM EDT) WBC Count 2.35(L) 3.70 - 10.30 10*3/uL LAB HEMATOLOGY METHOD 02/22/2025 9:33 AM EDT [facility] RBC Count 3.33(L) 3.90 - 5.20 10*6/uL LAB HEMATOLOGY METHOD 02/22/2025 9:33 AM EDT [facility] HGB 10.2(L) 11.2 - 15.7 g/dL LAB HEMATOLOGY METHOD 02/22/2025 9:33 AM EDT [facility] HCT 31.8(L) 34.0 - 45.0 % LAB HEMATOLOGY METHOD 02/22/2025 9:33 AM EDT [facility] Platelet Count 75(L) 155 - 369 10*3/uL LAB HEMATOLOGY METHOD 02/22/2025 9:33 AM EDT [facility] MCV 96 79 - 98 fL LAB HEMATOLOGY METHOD 02/22/2025 9:33 AM EDT [facility] MCH 30.6 26.0 - 32.0 pg LAB HEMATOLOGY METHOD 02/22/2025 9:33 AM EDT [facility] MCHC 32.1 30.7 - 35.5 g/dL LAB HEMATOLOGY METHOD 02/22/2025 9:33 AM EDT [facility] RDW 15.7(H) 11.5 - 14.5 % LAB HEMATOLOGY METHOD 02/22/2025 9:33 AM EDT [facility] MPV 10.5 8.8 - 12.5 fL LAB HEMATOLOGY METHOD 02/22/2025 9:33 AM EDT [facility] nRBC 0.0 <=0.0 per 100 WBCs LAB HEMATOLOGY METHOD 02/22/2025 9:33 AM EDT [facility] Blood Venous blood specimen / Unknown Venipuncture / Unknown 02/22/2025 7:18 AM EDT 02/22/2025 7:41 AM EDT us Edil Kiran MD LAB BLOOD ORDERABLES Final Resul t [facility] [address] [place] [address] * Alpha fetoprotein, serum (02/22/2025 7:18 AM EDT) Alpha Fetoprotein, Serum <2.3 <10.0 ng/mL 02/22/2025 8:[address] [facility] [place] Blood Venous blood specimen / Unknown Venipuncture / Unknown 02/22/2025 7:18 AM EDT 02/22/2025 7:48 AM EDT Narrative [facility] - 02/22/2025 8:25 AM EDT Performed by [employer] electrochemiluminescent immunoassay which is traceable to the [facility] AFP IRP WHO Reference standard 72/255. Results obtained with different test methods or kits cannot be used interchangeably. Edil Kiran MD LAB BLOOD ORDERABLES Final Resul t Performing Organization Address [facility] Co de Phone Number [facility] [address] [place] [address] * ABO/Rh (02/22/2025 7:18 AM EDT) ABO/Rh O Positive 02/22/2025 7:14 AM EDT BLOOD BANK Blood Venous blood specimen / Unknown Venipuncture / Unknown 02/22/2025 7:18 AM EDT 02/22/2025 7:46 AM EDT Edil Kiran MD LAB BLOOD BANK TEST ORDERABLES F inal Result Performing Organization Address [facility] Co de Phone Number BLOOD BANK [address] [place] [address] documented in this encounter Visit Diagnoses Diagnosis [...] documented as of this encounter Care Teams Operations And Maintenance Supervisor Relationship Specialty Start Date End Date Monika Hernandez APRN [address] [facility] [place] [address] PCP - General 01/19/25 Sary Brannon APRN [address] [facility] [address] [place], [place] [address] Referring Physician Gastroenterology 01/07/25 documented as of this encounter
--- OUTSIDE RECORDS SUMMARY | 2025-02-28 08:31 | XMS_ITS | Encounter Summary ---
Author Organization Healthcare Address [address] [place] [address] Care Team Providers Care Hobber Name Role Phone Larry Bedolla MD Primary Care Provider + [phone] Sary Brannon APRN Unavailable [phone] Monika Hernandez APRN Primary Care Provider + [phone] Encounter Details Date Type Department Care Team (Late st Contact Info) Description 10/26/2024 Orders Only External Location [address] [place] [address] Provider, External Social History Tobacco Use Types [...] EDT Appointment [facility] Radiology [address] [place] [address] 03/22/2025 9:00 AM EDT Clinical Support [facility] Transplant Center [address] [facility] [address] [place] [address] 03/22/2025 10:30 AM EDT Office Visit [facility] [address] [place] [address] Geronimo Tran MD [address] [place] [address] documented as of this encounter Procedures Procedure Name Priority Date/Time Associated Diagnosis Comments US OUTSIDE IMAGES 10/26/2024 10:57 AM EDT documented in this encounter Results * US OUTSIDE IMAGES (10/26/2024 10:57 AM EDT) Anatomical Region Laterality Modality Ultrasound 10/26/2024 10:5 7 AM EDT us External Provider IMG US [...] documented as of this encounter Care Teams Hobber Relationship Specialty Start Date End Date Larry Bedolla MD [address] [place] [address] PCP - General 12/08/20 01/18/25 Monika Hernandez APRN [address] [place] [address] PCP - General 01/19/25 Sary Brannon APRN [address] [facility] [address] [place] [address] Referring Physician Gastroenterology 01/07/25 documented as of this encounter
--- OUTSIDE RECORDS SUMMARY | 2025-02-28 08:31 | XMS_ITS | Clinical Summary ---
Author Organization [facility] [place] [address] Care Team Providers Care Director Semiconductor Name Role Phone Unavailable Primary Care Provider [...]
--- OUTSIDE RECORDS SUMMARY | 2025-02-28 08:31 | XMS_ITS ---
Author Organization [facility] Address [address] [place] [address] Care Team Providers Care Manager Camp Name Role Phone Sary Brannon APRN Unavailable [phone] Monika Hernandez APRN Primary Care Provider + [phone] Transplant Episode Liver Candidate [facility] ([place], [place]) - JOSÉ LUIS Referred on 01/07/2025 Marked as Active on 01/07/2025 Liver CoordinatorMoraima Centeno RN Fax: N/A Email: N/A Scores Score Value Updated Expires Exceptions/Saloni sons CPRA Not available MELD (Calc) 22 02/22/2025 Care Team Name Role Phone Fax Email Moraima Centeno RN Liver Coordinator [phone] N/A N/A Sary Brannon APRN Referring Physician [phone] N/A Gem Clark Front End Driver [phone] N/A N/A Edil Kiran MD Surgeon [phone] N/A Events Pre-Transplant Referred: 01/07/2025 Appointments (01/28/2025 - 03/31/2025) When With Visit Type Description 02/22/2025 Transplant - Surgeon, T Initial Clinic Evaluation 02/22/2025 Transplant - [facility] End-stage liver disease (CMS/HCC) 02/22/2025 Transplant - Thakral, N Initial Clinic Evaluation End-stage liver disease (CMS/HCC) (Primary Dx); 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
--- OUTSIDE RECORDS SUMMARY | 2025-02-28 08:31 | XMS_ITS | Encounter Summary ---
Author Organization Healthcare Address [address] [place] [address] Care Team Providers Care Wrapper Stemmer Operator Name Role Phone Larry Bedolla MD Primary Care Provider + [phone] Sary Brannon APRN Unavailable [phone] Monika Hernandez APRN Primary Care Provider + [phone] Encounter Details Date Type Department Care Team (Late st Contact Info) Description 12/03/2024 Orders Only External Location [address] [place] [address] Provider, External Social History Tobacco Use Types [...] EDT Appointment [facility] Radiology [address] [place] [address] 03/22/2025 9:00 AM EDT Clinical Support [facility] Transplant Center [address] [facility] [address] [place] [address] 03/22/2025 10:30 AM EDT Office Visit [facility] Transplant Center [address] [place] [address] Geronimo Tran MD [address] [place] [address] documented as of this encounter Procedures Procedure Name Priority Date/Time Associated Diagnosis Comments XR OUTSIDE IMAGES 12/03/2024 3:46 PM EDT documented in this encounter Results * XR OUTSIDE IMAGES (12/03/2024 3:46 PM EDT) Anatomical Region Laterality Modality Radiographic Josiane ging 12/03/2024 3:46 PM EDT us External Provider IMG XR [...] documented as of this encounter Care Teams Wrapper Stemmer Operator Relationship Specialty Start Date End Date Larry Bedolla MD [address] [place] [address] PCP - General 12/08/20 01/18/25 Monika Hernandez APRN [address] [place] [address] PCP - General 01/19/25 Sary Brannon APRN 1210 [facility] [address] [place] [address] Referring Physician Gastroenterology 01/07/25 documented as of this encounter
--- OUTSIDE RECORDS SUMMARY | 2025-02-28 08:31 | XMS_ITS | Encounter Summary ---
Author Organization Healthcare Address [address] [place] [address] Care Team Providers Care Safety Security Officer Name Role Phone Larry Bedolla MD Primary Care Provider + [phone] Sary Brannon APRN Unavailable [phone] Monika Hernandez APRN Primary Care Provider + [phone] Encounter Details Date Type Department Care Team (Late st Contact Info) Description 12/10/2024 Orders Only External Location [address] [place] [address] Provider, External Social History Tobacco Use Types [...] EDT Appointment [facility] Radiology [address] [place] [address] 03/22/2025 9:00 AM EDT Clinical Support [facility] Transplant Center [address] [facility] [address] [place] [address] 03/22/2025 10:30 AM EDT Office Visit [facility] Transplant Center [address] [place] [address] Geronimo Tran MD [address] [place] [address] documented as of this encounter Procedures Procedure Name Priority Date/Time Associated Diagnosis Comments XR OUTSIDE IMAGES 12/10/2024 8:34 AM EDT documented in this encounter Results * XR OUTSIDE IMAGES (12/10/2024 8:34 AM EDT) Anatomical Region Laterality Modality Radiographic Josiane ging 12/10/2024 8:34 AM EDT us External Provider IMG XR [...] documented as of this encounter Care Teams Safety Security Officer Relationship Specialty Start Date End Date Larry Bedolla MD [address] [place] [address] PCP - General 12/08/20 01/18/25 Monika Hernandez APRN [address] [place] [address] PCP - General 01/19/25 Sary Brannon APRN 1210 [facility] [address] [place] [address] Referring Physician Gastroenterology 01/07/25 documented as of this encounter
--- OUTSIDE RECORDS SUMMARY | 2025-02-28 08:31 | XMS_ITS | Encounter Summary ---
Author Organization Healthcare Address [address] [place] [address] Care Team Providers Care Development Writer Name Role Phone Larry Bedolla MD Primary Care Provider + [phone] Sary Brannon APRN Unavailable [phone] Monika Hernandez APRN Primary Care Provider + [phone] Encounter Details Date Type Department Care Team (Late st Contact Info) Description 11/30/2024 Orders Only External Location [address] [place] [address] Provider, External Social History Tobacco Use Types [...] EDT Appointment [facility] Radiology [address] [place] [address] 03/22/2025 9:00 AM EDT Clinical Support [facility] Transplant Center [address] [facility] [address] [place] [address] 03/22/2025 10:30 AM EDT Office Visit [facility] Transplant Center [address] [place] [address] Geronimo Tran MD [address] [place] [address] documented as of this encounter Procedures Procedure Name Priority Date/Time Associated Diagnosis Comments US ABDOMEN OUTSIDE IMAGES 11/30/2024 4:09 PM EDT documented in this encounter Results * US ABDOMEN OUTSIDE IMAGES (11/30/2024 4:09 PM EDT) Anatomical Region Laterality Modality Ultrasound 11/30/2024 4:09 PM EDT us External Provider IMG US PROCEDURES [...] documented as of this encounter Care Teams Development Writer Relationship Specialty Start Date End Date Larry Bedolla MD [address] [place] [address] PCP - General 12/08/20 01/18/25 Monika Hernandez APRN [address] [place] [address] PCP - General 01/19/25 Sary Brannon APRN 1210 [facility] [address] [place] [address] Referring Physician Gastroenterology 01/07/25 documented as of this encounter
--- OUTSIDE RECORDS SUMMARY | 2025-02-28 08:31 | XMS_ITS | Encounter Summary ---
Author Organization Healthcare Address [address] [place] [address] Care Team Providers Care Utility Mechanic Name Role Phone Larry Bedolla MD Primary Care Provider + [phone] Sary Brannon APRN Unavailable [phone] Monika Hernandez APRN Primary Care Provider + [phone] Encounter Details Date Type Department Care Team (Late st Contact Info) Description 11/30/2024 Orders Only External Location [address] [place] [address] Provider, External Social History Tobacco Use Types [...] EDT Appointment [facility] Radiology [address] [place] [address] 03/22/2025 9:00 AM EDT Clinical Support [facility] Transplant Center [address] [facility] [address] [place] [address] 03/22/2025 10:30 AM EDT Office Visit [facility] Transplant Center [address] [place] [address] Geronimo Tran MD [address] [place] [address] documented as of this encounter Procedures Procedure Name Priority Date/Time Associated Diagnosis Comments US ABDOMEN OUTSIDE IMAGES 11/30/2024 3:55 PM EDT documented in this encounter Results * US ABDOMEN OUTSIDE IMAGES (11/30/2024 3:55 PM EDT) Anatomical Region Laterality Modality Ultrasound 11/30/2024 3:55 PM EDT us External Provider IMG US [...] documented as of this encounter Care Teams Utility Mechanic Relationship Specialty Start Date End Date Larry Bedolla MD [address] [place] [address] PCP - General 12/08/20 01/18/25 Monika Hernandez APRN [address] [place] [address] PCP - General 01/19/25 Sary Brannon APRN 1210 [facility] [address] [place] [address] Referring Physician Gastroenterology 01/07/25 documented as of this encounter
--- OUTSIDE RECORDS SUMMARY | 2025-02-28 08:31 | XMS_ITS | Encounter Summary ---
Author Organization Healthcare Address [address] [place] [address] Care Team Providers Care Drop Shipment Clerk Name Role Phone Sary Brannon BEEKEEPER FARMER Unavailable [phone] David Monika ÁNGEL Primary Care Provider + [phone] Encounter Details Date Type Department Care Team (Latest Contact Info) Description 02/22/2025 Travel Social History Tobacco Use Types Packs/Day [...] Appointment [facility] Radiology [address] [place] [address] 03/22/2025 9:00 AM EDT Clinical Support [facility] Transplant [place] [address] [place] [address] [address] 03/22/2025 10:30 AM EDT Office Visit [facility] Transplant [place] [address] [address] Geronimo Tran MD [address] [facility] [address] [place] [address] documented as of this encounter Visit Diagnoses Not on filedocumented in this encounter Additional Health Concerns Assessment Noted Time A fall risk assessment has been complete d for the patient 02/22/2025 8:10 AM EDT A Body Mass Index follow-up plan has been documented for the patient 02/26/2025 2:56 PM EDT documented as of this encounter Care Teams Drop Shipment Clerk Relationship Specialty Start Date End Date Monika Hernandez APRN [address] [place] [address] PCP - General 01/19/25 Sary Brannon APRN [address] [place] [address] Referring Physician Gastroenterology 01/07/25 documented as of this encounter
--- OUTSIDE RECORDS SUMMARY | 2025-02-28 08:31 | XMS_ITS | Clinical Summary ---
[facility] Address [address] [place] [address] Care Team Providers Care Mold Dresser Name Role Phone Sherri Adkins APRN Primary Care Provider Social History Tobacco Use Types Packs/Day Years Used Date Smoking Tobacco: Never Assessed Abuse Screen Answer Date Recorded Unsafe at Home or Work/School Not on file Feels Threatened by Someone? Not on file 04/2023 Does Anyone Keep You from Co ntacting Others or Doint Things Outside the Home? Not on file 05/06/2023 Physical Sign of Abuse Present Not on file 1 Housing Stability Answer Date Recorded Current Living Arrangements Not on file 04/27 Potentially Unsafe Housing Conditions Not on francis e 05/06/2023 Family and Community Support Answer Brown e Recorded Help with Day-to-Day Activities Not on file 05/06/2023 Lonely or Isolated Not on file 05/06/2023 Employment Answer Date Recorded Do you want help finding or keeping work or a trisha b? Not on file 05/06/2023 Disabilities Answer Date Recorded Concentrating, Remembering, or Making Decisions Difficulty Not on file 05/06/2023 Doing Errands Independently Difficulty Not on fi le 05/06/2023 Education Answer Date Recorded Help with school or training? Not on file Preferred Language Not on file 05/06/2023 Comments Unknown Sex and Gender Information Value Date Recorded Sex Assigned at Not on file Legal Sex Female 1:40 PM EDT Gender Identity Not on file Sexual Orientation Not on file Plan of Treatment Health Maintenance Due Date Last Done Comments ANNUAL PHYSICAL 1962 Annual Gynecologic Pelvic and Breast Exam 1962 HEPATITIS C SCREENING 1962 TDAP/TD VACCINES (1 - Tdap) 1981 MAMMOGRAM 2002 COLOGUARD 2007 COLON CANCER SCREENING 5 YEAR SIGMOIDOSCOPY 2007 COLONOSCOPY 2007 COLORECTAL CANCER SCREENING 2007 CT COLONOGRAPHY 2007 FECAL OCCULT BLOOD TEST 2007 FIT Testing (1 year) 2007 Pneumococcal Vaccine 50+ (1 of 1 - PCV) 2012 ZOSTER VACCINE (1 of 2) 2012 COVID-19 Vaccine (1 - 2023- season) 2024 INFLUENZA VACCINE 04/27/2025 [place] [address] Care Teams Mold Dresser Relationship Specialty Start Date End Date Sherri Adkins APRN [address] [place] [address] PCP - General Family Medicine 03/12/16
--- OUTSIDE RECORDS SUMMARY | 2025-02-28 08:31 | XMS_ITS | Encounter Summary ---
Author Organization Healthcare Address [address] [place] [address] Care Team Providers Care Watch Commander Name Role Phone Larry Bedolla MD Primary Care Provider + [phone] Sary Brannon GUEST SERVICES Unavailable [phone] Monika Hernandez APRN Primary Care Provider [phone] Reason for Visit * Reason Comments Med Refill Encounter Details Date Type Department Care Team (Late st Contact Info) Description 04/12/2021 Refill [place] [facility] Endocrinology [address] [place] [address] Lina Lowe, GUEST SERVICES [address] [facility] [address] [place] [address] Social History Tobacco Use Types [...] EDT Appointment [facility] Radiology [address] [place] [address] 03/22/2025 9:00 AM EDT Clinical Support [facility] Transplant Center [address] [place] [address] 03/22/2025 10:30 AM EDT Office Visit [facility] Transplant [place] [address] [place] [address] Geronimo Tran MD [address] [facility] [address] [place] [phone] documented as of this encounter Visit Diagnoses Not on filedocumented in this encounter Care Teams Watch Commander Relationship Specialty Start Date End Date Larry Bedolla MD [address] [place] [address] PCP - General 12/08/20 01/18/25 Monika Hernandez APRN [address] [place] [address] PCP - General 01/19/25 Sary Brannon APRN [address] [facility] [address] [place] [address] Referring Physician Gastroenterology 01/07/25 documented as of this encounter
--- OUTSIDE RECORDS SUMMARY | 2025-02-28 08:31 | XMS_ITS | Encounter Summary ---
Author Organization Healthcare Address [address] [place] [address] Care Team Providers Care Online Content Developer Name Role Phone Larry Bedolla MD Primary Care Provider + [phone] Sary Brannon APRN Unavailable [phone] Monika Hernandez APRN Primary Care Provider + [phone] Encounter Details Date Type Department Care Team (Late st Contact Info) Description 11/30/2024 Orders Only External Location [address] [place] [address] Provider, External Social History Tobacco Use Types [...] EDT Appointment [facility] Radiology [address] [place] [address] 03/22/2025 9:00 AM EDT Clinical Support [facility] Transplant Center [address] [facility] [address] [place] [address] 03/22/2025 10:30 AM EDT Office Visit [facility] Transplant Center [address] [place] [address] Geronimo Tran MD [address] [place] [address] documented as of this encounter Procedures Procedure Name Priority Date/Time Associated Diagnosis Comments US OUTSIDE IMAGES 11/30/2024 3:38 PM EDT documented in this encounter Results * US OUTSIDE IMAGES (11/30/2024 3:38 PM EDT) Anatomical Region Laterality Modality Ultrasound 11/30/2024 3:38 PM EDT us External Provider IMG US [...] documented as of this encounter Care Teams Online Content Developer Relationship Specialty Start Date End Date Larry Bedolla MD [address] [place] [address] PCP - General 12/08/20 01/18/25 Monika Hernandez APRN [address] [place] [address] PCP - General 01/19/25 Sary Brannon APRN [address] [facility] [address] [place] [address] Referring Physician Gastroenterology 01/07/25 documented as of this encounter
--- OUTSIDE RECORDS SUMMARY | 2025-02-28 08:31 | XMS_ITS | Encounter Summary ---
Author Organization Healthcare Address [address] [place] [address] Care Team Providers Care Regional Engineer Name Role Phone Larry Bedolla MD Primary Care Provider + [phone] Sary Brannon APRN Unavailable [phone] Monika Hernandez APRN Primary Care Provider [phone] Encounter Details Date Type Department Care Team (Late st Contact Info) Description 04/30/2018 Orders Only External Location [address] [place] [address] Provider, External Social History Tobacco Use Types [...] EDT Appointment [facility] Radiology [address] [place] [address] 03/22/2025 9:00 AM EDT Clinical Support [facility] Transplant Center [address] [facility] [address] [place] [address] 03/22/2025 10:30 AM EDT Office Visit [facility] Transplant [place] [address] [facility] [address] [place] [address] Geronimo Tran MD [address] [facility] [address] [place] [address] documented as of this encounter Procedures Procedure Name Priority Date/Time Associated Diagnosis Comments MR OUTSIDE IMAGES 04/30/2018 7:56 AM EDT documented in this encounter Results * MR transfer of outside films (04/30/2018 7:56 AM EDT) Anatomical Region Laterality Modality Magnetic Resonan ce 04/30/2018 7:56 AM EDT us External Provider IMG MRI PROCEDURES Final Resul t documented in this encounter Visit Diagnoses Not on filedocumented in this encounter Care Teams Regional Engineer Relationship Specialty Start Date End Date Larry Bedolla MD [address] [place] [address] PCP - General 12/08/20 01/18/25 Monika Hernandez APRN [address] [place] [address] PCP - General 01/19/25 Sary Brannon APRN [address] [place] [address] [address] [place] [address] Referring Physician Gastroenterology 01/07/25 documented as of this encounter
--- OUTSIDE RECORDS SUMMARY | 2025-02-28 08:32 | XMS_ITS | Encounter Summary ---
Author Organization Healthcare Address [address] [place] [address] Care Team Providers Care Spanisher Name Role Phone Larry Bedolla MD Primary Care Provider + [phone] Sary Brannon INDUSTRIAL GREEN SYSTEMS DESIGNER Unavailable [phone] Monika Hernandez APRN Primary Care Provider [phone] Encounter Details Date Type Department Care Team (Late st Contact Info) Description 01/03/2025 [facility] [address] [place] [address] Sary Brannon, INDUSTRIAL GREEN SYSTEMS DESIGNER [address] [place] [address] [place], [place] [id number] Social History Tobacco Use Types Packs/Day Years [...] EDT Appointment [facility] Radiology [address] [place] [address] 03/22/2025 9:00 AM EDT Clinical Support [facility] Transplant Center [address] [place] [address] 03/22/2025 10:30 AM EDT Office Visit [facility] Transplant [place] [address] [place] [phone] Geronimo Tran MD [address] [place] [address] documented as of this encounter Visit Diagnoses Not on filedocumented in this encounter Additional Health Concerns Assessment Noted Time A fall risk assessment has been complete d for the patient 01/02/2022 1:17 PM EDT A Body Mass Index follow-up plan has been documented for the patient 11/13/2022 11:41 AM EDT documented as of this encounter Care Teams Spanisher Relationship Specialty Start Date End Date Larry Bedolla MD [address] [place] [address] PCP - General 12/08/20 01/18/25 Monika Hernandez APRN [address] [place] [address] PCP - General 01/19/25 Sary Brannon APRN 1210 [facility] [address] [place] [address] Referring Physician Gastroenterology 01/07/25 documented as of this encounter
--- OUTSIDE RECORDS SUMMARY | 2025-02-28 08:32 | XMS_ITS | Encounter Summary ---
Author Organization [facility] Address [address] [place] [address] Care Team Providers Care Comprehensive Ophthalmologist Name Role Phone Larry Bedolla MD Primary Care Provider + [phone] Sary Brannon ANNUAL GIVING DIRECTOR Unavailable [phone] Reason for Referral * Transplant (Routine) - Authorized Specialty Diagnoses / Procedures Referred By Mayela may Referred To Contact Transplant Diagnoses End-stage liver disease (CMS/HCC) Sary Brannon APRN [address] [facility] [address] [place] [address] Phone: tel: fax: [facility] Transplant Center [address] [address] Phone: tel: fax: Referral ID Status Reason Start Date Expiration Date Visits Requested Visits Authorized [id number] Authorized Specialty Services Required 01/07/2025 07/09/[phone] Reason for Visit * Reason Comments Referral - Liver Txp Encounter Details Date Type Department Care Team (Late Contact Info) Description 01/07/2025 Telephone [facility] Transplant [place] [phone] [address] Kasey Dye [place] [phone] Referral - Liver Txp Social History Tobacco [...] EDT Appointment [facility] Radiology [address] [place] [address] 03/22/2025 9:00 AM EDT Clinical Support [facility] Transplant [place] [address] [facility] [address] [place] [address] 03/22/2025 10:30 AM EDT Office Visit [facility] Transplant [place] [address] [facility] [address] [place] [address] Geronimo Tran MD [address] [facility] [address] [place] [address] Scheduled Referrals Name Type Priority Associated Diagnoses [...] Venous blood specimen / Unknown 01/03/2025 Result [facility] Provider LAB BLOOD ORDERABLES Afsaneh l Result * Creatinine, Plasma (01/03/2025) External Creatinine Blood 3.00 mg/dL Blood Venous blood specimen / Unknown 01/03/2025 Result [facility] Provider LAB BLOOD ORDERABLES Afsaneh l Result * Albumin, Plasma (01/03/2025) External Albumin 3.6 g/dL Blood Venous blood specimen / Unknown 01/03/2025 Result [facility] Provider LAB BLOOD ORDERABLES Afsaneh l Result * Albumin, Plasma (12/14/2024) External Albumin 3.2 g/dL Blood Venous blood specimen / Unknown 12/14/2024 Result [facility] Provider LAB BLOOD ORDERABLES Afsaneh l Result * Total Bilirubin, Plasma (12/14/2024) External Bilirubin Total 0.9 mg/dL Blood Venous blood specimen / Unknown 12/14/2024 Result [facility] Provider LAB BLOOD ORDERABLES Afsaneh l Result * Creatinine, Plasma (12/14/2024) External Creatinine Blood 2.22 mg/dL Blood Venous blood specimen / Unknown 12/14/2024 Result [facility] Provider LAB BLOOD ORDERABLES Afsaneh l Result * Sodium, Plasma (12/14/2024) External Sodium 145 mmol/L Blood Venous blood specimen / Unknown 12/14/2024 Result [facility] Provider LAB BLOOD ORDERABLES Afsaneh l Result * Prothrombin Time/INR (11/30/2024) External Prothrombin Time (PT) 12.9 External INR - Internormal Ratio 1.17 Blood Venous blood specimen / Unknown 11/30/2024 Result [facility] Provider LAB BLOOD ORDERABLES Afsaneh l Result [...] documented as of this encounter Care Teams Comprehensive Ophthalmologist Relationship Specialty Start Date End Date Larry Bedolla MD [address] [facility] [place] [address] PCP - General 12/08/20 01/18/25 Sary Brannon APRN [address] [place] [address] Referring Physician Gastroenterology 01/07/25 documented as of this encounter
--- OUTSIDE RECORDS SUMMARY | 2025-02-28 08:32 | XMS_ITS | Clinical Summary ---
Author Organization Healthcare Address [address] [place] [address] Care Team Providers Care Cost Estimator Name Role Phone Sary Brannon ACTIVITIES LEADER Unavailable [phone] Monika Hernandez APRN Primary Care Provider [phone] Allergies No known active allergies Medications bisoprolol (Zebeta) 10 MG tablet Take 10 mg by mouth 1 (one) time each day. 01/03/20 21 Active clopidogrel (Plavix) 75 MG tablet TAKE 1 TABLET BY MOUTH ONCE DAILY FOR PLATELET INHIBITOR 11/01/19 21 Active cyclobenzaprine (Flexeril) 10 MG tablet 1 po TID prn muscle spasms 10/27/19 19 Active FLUoxetine (PROzac) 20 MG capsule TAKE 3 CAPSULES BY MOUTH DAILY FOR DEPRESSION 07/19/20 20 Active fluticasone (Flonase) 50 MCG/ACT nasal spray Administer 1 spray into each nostril as needed. 06/20/20 20 Active BD Pen Needle Joyce 2nd Gen 32G X 4 MM misc USE TID WITH INJECTIONS 03/24/20 20 Active UltiCare Insulin Syringe 31G X 5/16 1 ML misc USE WITH INJECTIONS THREE TIMES DAILY 01/15/20 21 Active FreeStyle lancets USE TO TEST TWICE DAILY 11/11/19 21 Active lisinopril 10 MG tablet Take 10 mg by mouth 1 (one) time each day. 12/01/19 21 Active ondansetron ODT (Zofran-ODT) 4 MG disintegrating tablet every 8 hours as needed. 10/12/19 Active traZODone (Desyrel) 50 MG tablet as needed. 07/10/20 Active Trintellix 20 MG tablet Take 1 tablet by mouth 1 (one) time each day. 01/03/20 Active glucose blood test strip USE TO TEST BID 05/27/20 Active Glucose Blood (FREESTYLE LITE TEST ) TEST TWO TIMES A DAY 11/11/19 Active FreeStyle lancets USE ONE LANCET TWICE DAILY ( PT MUST MAKE APPT FOR REFILLS) 11/11/19 Active insulin syringe-needle U-100 31G X 12/10 0.3 mL misc 3 INJECTIONS DAILY 11/11/19 Active HYDROcodone-acetam inophen ([place]) 10-325 MG tablet 10/24/19 Active spironolactone (Aldactone) 25 MG tablet Take 0.5 tablets by mouth daily. 10/03/19 Active furosemide (Lasix) 40 MG tablet Take by mouth 2 (two) times a day. 10/03/19 Active Insulin Lispro (HUMALOG IJ) Inject as directed. Active dapagliflozin (Farxiga) 5 MG tabletIndications: CKD (chronic kidney disease) stage 2, GFR 60-89 ml/min,Microalbumi ruperto,Coronary artery disease involving [place] heart with angina pectoris and documented spasm, unspecified vessel or lesion type (CMS/HCC) Take 1 tablet (5 mg total) by mouth 1 (one) time each day. 30 tablet 1 11/05/19 Active Additional Information Patient not taking.Reported on 02/22/2025 potassium chloride CR (Klor-Con M20) 20 MEQ ER tablet 01/30/20 23 Active Ozempic, 0.25 or 0.5 MG/DOSE, 2 MG/3ML solution pen-injector 02/05/20 23 Active gabapentin (Neurontin) 800 MG tablet 02/27/20 23 Active NovoLOG MIX 70/30 FLEXPEN (70-30) 100 UNIT/ML injection pen Inject 5 Units under the skin as needed. 02/27/20 23 Active metFORMIN XR (Glucophage-XR) 500 MG 24 hr tablet Take 1 tablet (500 mg) by mouth 1 (one) time each day with dinner. 09/25/19 24 Active atorvastatin (Lipitor) 20 MG tablet Take 1 tablet by mouth nightly. 02/04/20 Active bumetanide (Bumex) 2 MG tablet Take 1 tablet by mouth daily. Active gabapentin (Neurontin) 100 MG capsule Take 1 capsule by mouth 3 times a day. 02/17/20 Active NovoLIN R 100 UNIT/ML injection vial Inject 5 Units under the skin as needed. Active lactulose (Enulose) 10 GM/15ML solution oral solution Take 15 mL by mouth twice a day. 12/07/19 Active metOLazone (Zaroxolyn) 2.5 MG tablet Take 1 tablet by mouth daily. 12/15/19 Active pantoprazole (Protonix) 40 MG EC tablet Take 1 tablet by mouth 2 times a day. 02/16/20 Active Xifaxan 550 MG tablet Take 1 tablet by mouth 2 times a day. 12/07/19 Active tamsulosin (Flomax) 0.4 MG 24 hr capsule Take 1 capsule by mouth nightly. 02/16/20 Active ferrous sulfate 324 (65 Fe) MG EC tablet Take 1 tablet by mouth daily with breakfast. Do not crush, chew, or split. Active albuterol 108 (90 Base) MCG/ACT inhaler as needed. Active Aspirin Low Dose 81 MG EC tablet Take 1 tablet by mouth daily. 30 tablet 1 02/23/20 25 025 Active psyllium (Metamucil Smooth Texture) 58.6 % powder Take 1 packet by mouth daily. 1040 g 02/23/20 25 Active Aspirin Low Dose 81 MG EC tablet 02/27/20 23 025 Discontin ued(Reord er) Active Problems Problem Noted Date Diagnosed Date [...] Encounters Date Type Department Care Team Description 02/22/2025 9:20 AM EDT Office Visit [facility] [address] [address] Ollie Calvo MD End-stage liver disease (CMS/HCC) (Primary Dx); 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); Portal hypertension (CMS/HCC); Other ascites; GERMÁN (acute kidney injury) (CMS/HCC) 02/22/2025 Travel 02/17/[address] [facility] [address] [address] Jessica Simms Appointment (Confirmation and reminders) 01/19/[address] [facility] [place] [id number] [address] Jessica Simms Appointment (scheduling) 01/07/[address] [facility] [address] [address] Kasey Dye Referral - Liver Txp 01/03/2025 Community Orders Community Practice [address] [place] [address] Sary Brannon, ACTIVITIES LEADER 12/31/2024 Orders Only External Location [address] [place] [address] Monika Hernandez, ACTIVITIES LEADER 12/10/2024 Orders Only External Location [address] [place] [address] Provider, External 12/10/2024 Orders Only External Location [address] [place] [address] Provider, External 12/09/2024 Orders Only External Location [address] [place] [address] Provider, External 12/07/2024 Orders Only External Location [address] [place] [address] Provider, External 12/06/2024 Orders Only External Location [address] [place] [address] Provider, External 12/04/2024 Orders Only External Location [address] [place] [address] Provider, External 12/03/2024 Orders Only External Location [address] [place] [address] Provider, External 12/02/2024 Orders Only External Location [address] [place] [address] Provider, External 11/30/2024 Orders Only External Location [address] [place] [address] Provider, External 11/30/2024 Orders Only External Location [address] [place] [address] Provider, External 11/30/2024 Orders Only External Location [address] [place] [address] Provider, External 11/30/2024 Orders Only External Location [address] [place] [address] Provider, External 11/29/2024 Orders Only External Location [address] [place] [address] Provider, External from Last 3 Months Immunizations Immunization Administration [...] Mass Index 25.98 02/22/2025 8:02 AM EDT Plan of Treatment Upcoming Encounters Date Type Department Care Team (Late st Contact Info) Description 03/22/2025 8:00 AM EDT Appointment [facility] Radiology [address] [place] [address] 03/22/2025 9:00 AM EDT Clinical Support [facility] [address] [place] [address] 03/22/2025 10:30 AM EDT Office Visit [facility] [address] [place] [address] Geronimo Tran MD [address] [place] [address] Health Maintenance Due Date Last Done Comments [facility]-HIV Screening 1962 [facility]-Medicare Annual Wellness (AWV) 1962 [facility]-/Child/Adol SDOH Screenings 1962 Diabetes: Dental Exam 1972 [facility]- SDOH Screenings 1980 [facility]-Adult SDOH Screenings 1980 [facility]-Pap Smear 1983 [facility]-Cervical Cancer Screening 1992 [facility]-HPV/Cotest 1992 CT Colonography 2007 Colonoscopy 2007 FIT-DNA 2007 FIT 2007 FOBT 2007 Sigmoidoscopy 2007 [facility]-Colorectal Cancer Screening 2007 [facility]-Breast Cancer Screening 2012 [facility]-Diabetes: Hemoglobin A1C 07/23/2016 01/24/2016, 01/05/2015 [facility]-RSV Vaccine: 60+ Years or (1 - Risk 60-74 years 1-dose series) 2022 [facility]-Hepatitis A Vaccines (3 of 3 - Risk Twinrix secondary 3-dose series) 06/04/2022 01/02/2022, 11/21/2021 [facility]-Depression Screening 01/02/2023 01/02/2022 [id number] Vaccine (4 - season) 2024 05/13/2021, 04/15/2021, 11/08/2020 [facility]-Influenza Vaccine (#1) 03/28/202505/15, 04/25/2019, 05/01/2018, Additional history exists [facility]-Pneumococcal Vaccine: 50+ Years (3 of 3 - PCV20 or PCV21) 05/15/2025 05/15/2020, 07/09/2016 [facility]-DTaP,Tdap,and Td Vaccines (2 - Td or Tdap) 02/25/2031 02/25/2021 [facility]-Zoster Vaccines Completed 05/31/2021, 08/15/2020, 05/31/2020 [facility]-Hepatitis C Screening Completed 02/22/2025 [facility]-Obesity Intervention Completed 02/22/2025, 10/26 HPV Vaccines Aged Out No longer eligi [...] Procedure Name Priority Date/Time Associated Diagnosis Comments ABO/RH Routine 02/22/2025 7:18 AM EDT End-stage liver disease (CMS/HCC) ALPHA FETOPROTEIN, SERUM Routine 02/22/2025 7:18 AM EDT End-stage liver disease (CMS/HCC) CBC W/O DIFFERENTIAL Routine 02/22/2025 7:18 AM EDT End-stage liver disease (CMS/HCC) COMPREHENSIVE METABOLIC PANEL, PLASMA Routine 02/22/2025 7:18 AM EDT End-stage liver disease (CMS/HCC) PROTHROMBIN TIME(PT) / INR Routine 02/22/2025 7:18 AM EDT End-stage liver disease (CMS/HCC) NICOTINE AND COTININE METABOLITE, SERUM, QUANTITATIVE Routine 02/22/2025 7:18 AM EDT End-stage liver disease (CMS/HCC) HEPATITIS C ANTIBODY W/REFLEX TO HCV QUANT PCR Routine 02/22/2025 7:18 AM EDT End-stage liver disease (CMS/HCC) HEPATITIS B SURFACE ANTIGEN Routine 02/22/2025 7:18 AM EDT End-stage liver disease (CMS/HCC) HEPATITIS B SURFACE ANTIBODY, QUANTITATIVE Routine 02/22/2025 7:18 AM EDT End-stage liver disease (CMS/HCC) HEPATITIS A ANTIBODY IGG Routine 02/22/2025 7:18 AM EDT End-stage liver disease (CMS/HCC) SODIUM, PLASMA Routine 01/03/2025 CREATININE, PLASMA Routine 01/03/2025 ALBUMIN, PLASMA Routine 01/03/2025 US OUTSIDE IMAGES 12/31/2024 7:3 3 AM EDT ALBUMIN, PLASMA Routine 12/14/2024 TOTAL BILIRUBIN, PLASMA Routine 12/14/2024 CREATININE, PLASMA Routine 12/14/2024 SODIUM, PLASMA Routine 12/14/2024 US OUTSIDE IMAGES 12/10/2024 10: 39 AM EDT XR OUTSIDE IMAGES 12/10/2024 8:3 4 AM EDT XR OUTSIDE IMAGES 12/09/2024 6:5 1 AM EDT XR OUTSIDE IMAGES 12/07/2024 2:0 3 PM EDT XR OUTSIDE IMAGES 12/06/2024 7:3 1 AM EDT XR OUTSIDE IMAGES 12/04/2024 6:4 9 AM EDT XR OUTSIDE IMAGES 12/03/2024 3:[address] ABDOMEN OUTSIDE IMAGES 12/02/2024 10:40 AM EDT US ABDOMEN OUTSIDE IMAGES 11/30/2024 4:09 PM EDT US ABDOMEN OUTSIDE IMAGES 11/30/2024 3:55 PM EDT US OUTSIDE IMAGES 11/30/2024 3:3 8 PM EDT XR OUTSIDE IMAGES 11/30/2024 11: 19 AM EDT PROTHROMBIN TIME(PT) / INR Routine 11/30/2024 CT MSK OUTSIDE IMAGES 11/29/2024 9:37 PM EDT HEMOGLOBIN A1C Routine 01/24/2016 1:47 PM EDT from Last 3 Months or Most Recently Relevant to Health Maintenance Results * HEPATITIS B SURFACE ANTIBODY, QUANTITATIVE (02/22/2025 7:18 AM EDT) [facility] Hepatitis B Surface Antibody, Quantitative <8.00 NonReactiv e: <8, Grayzone: 8 - <12, Reactive: >= 12 mIU/mL 02/22/2025 8:44 AM EDT [facility] Comment: Nonreactive. Individual is considered not immune to HBV infection. Blood Venous blood specimen / Unknown Venipuncture / Unknown 02/22/2025 7:18 AM EDT 02/22/2025 7:48 AM EDT us Edil Kiran MD LAB BLOOD ORDERABLES Final Resul t [facility] [address] [place] [address] * Alpha fetoprotein, serum (02/22/2025 7:18 AM EDT) [facility] Alpha Fetoprotein, Serum <2.3 <10.0 ng/mL 02/22/2025 8:25 AM EDT [facility] Blood Venous blood specimen / Unknown Venipuncture / Unknown 02/22/2025 7:18 AM EDT 02/22/2025 7:48 AM EDT Narrative [facility] - 02/22/2025 8:25 AM EDT Performed by Stone electrochemiluminescent immunoassay which is traceable to the 1st [facility] IRP WHO Reference standard 72/255. Results obtained with different test methods or kits cannot be used interchangeably. us Edil Kiran MD LAB BLOOD ORDERABLES Final Resul t Performing Organization Address City/[facility]/[place] Co de Phone Number [facility] [address] [place] [address] * (ABNORMAL) Hepatitis A Antibody IgG (02/22/2025 7:18 AM EDT) Hepatitis A Antibody IgG Positive(A ) Negative 02/22/2025 8:44 AM EDT [facility] Blood Venous blood specimen / Unknown Venipuncture / Unknown 02/22/2025 7:18 AM EDT 02/22/2025 7:48 AM EDT us Edil Kiran MD LAB BLOOD ORDERABLES Final Resul t Performing Organization Address City/[facility]/[place] Co de Phone Number [facility] [address] [place] [address] * Hepatitis C Antibody (02/22/2025 7:18 AM EDT) Hepatitis C Antibody Negative Negative 02/22/2025 8:29 AM EDT [facility] Blood Venous blood specimen / Unknown Venipuncture / Unknown 02/22/2025 7:18 AM EDT 02/22/2025 7:48 AM EDT us Edil Kiran MD LAB BLOOD ORDERABLES Final Resul t Performing Organization Address City/[facility]/[place] [address] * Nicotine Cotinine Metabolite (02/22/2025 7:18 AM EDT) NICOTINE <5 <5 ng/mL 02/24/2025 2:3 4 PM EDT [facility] Cotinine <5 <5 ng/mL 02/24/2025 2:3 4 PM EDT [facility] Blood Venous blood specimen / Unknown Venipuncture / Unknown 02/22/2025 7:18 AM EDT 02/22/2025 7:46 AM EDT Narrative [facility] - 02/24/2025 2:34 PM EDT Testing performed by LC-MS/MS at the [facility] Special Chemistry/Toxicology Laboratory. This test was developed and its performance characteristics determined by [facility]. This assay has not been cleared by the FDA. The laboratory is regulated under CLIA as qualified to perform high-complexity testing. This test is used for clinical purposes. us Edil Kiran MD LAB BLOOD ORDERABLES Final Resul t Performing Organization Address City/[facility]/[place] Co de Phone Number [facility] [address] [place] [address] * ABO/Rh (02/22/2025 7:18 AM EDT) ABO/Rh O Positive 02/22/2025 7:14 AM EDT BLOOD BANK Blood Venous blood specimen / Unknown Venipuncture / Unknown 02/22/2025 7:18 AM EDT 02/22/2025 7:46 AM EDT Edil Kiran MD LAB BLOOD BANK TEST ORDERABLES F inal Result Performing Organization Address [facility]/[place] Co de Phone Number BLOOD BANK [address] [place] [address], * Hepatitis B Surface Antigen (02/22/2025 7:18 AM EDT) Hepatitis B Surf Antigen Negative Negative 02/22/2025 8:44 AM EDT [facility] Blood Venous blood specimen / Unknown Venipuncture / Unknown 02/22/2025 7:18 AM EDT 02/22/2025 7:48 AM EDT us Edil Kiran MD LAB BLOOD ORDERABLES Final Resul t Performing Organization Address City/[facility]/ZIP Co de Phone Number [facility] [address] [place] [address] * (ABNORMAL) Protime-INR (02/22/2025 7:18 AM EDT) Only the most recent of2 resultswithin the time period is included. Pathologist [facility] Prothrombin Time 18.7(H) 12.0 - 14.3 sec LAB COAGULATION METHOD 02/22/2025 8:04 AM EDT [facility] INR 1.6(H) 0.9 - 1.1 LAB COAGULATION METHOD 02/22/2025 8:04 AM EDT [facility] Blood Venous blood specimen / Unknown Venipuncture / Unknown 02/22/2025 7:18 AM EDT 02/22/2025 7:46 AM EDT [facility] - 02/22/2025 8:04 AM EDT OPTIMAL INR RANGES FOR PATIENT ON ORAL ANTICOAGULANT THERAPY Prevention of venous thromboembolism INR 2.0 to 3.0 In patients with heart disease: Atrial fibrillation INR 2.0 to 3.0 Valvular heart disease INR 2.0 to 3.0 Tissue heart valves INR 2.0 to 3.0 Mechanical prosthetic valves INR 2.5 to 3.5 Prevention of recurrent AR INR 2.5 to 3.5 us Edil Kiran MD LAB BLOOD ORDERABLES Final Resul t [facility] [address] [place] [address] * (ABNORMAL) Hemogram (CBC) (02/22/2025 7:18 AM EDT) [facility] WBC Count 2.35(L) 3.70 - 10.30 10*3/uL LAB HEMATOLOGY METHOD 02/22/2025 9:33 AM EDT [facility] RBC Count 3.33(L) 3.90 - 5.20 10*6/uL LAB HEMATOLOGY METHOD 02/22/2025 9:33 AM EDT [facility] HGB 10.2(L) 11.2 - 15.7 g/dL LAB HEMATOLOGY METHOD 02/22/2025 9:33 AM EDT [facility] HCT 31.8(L) 34.0 - 45.0 % LAB HEMATOLOGY METHOD 02/22/2025 9:33 AM EDT [facility] Platelet Count 75(L) 155 - 369 10*3/uL LAB HEMATOLOGY METHOD 02/22/2025 9:33 AM EDT [facility] MCV 96 79 - 98 fL LAB HEMATOLOGY METHOD 02/22/2025 9:33 AM EDT [facility] MCH 30.6 26.0 - 32.0 pg LAB HEMATOLOGY METHOD 02/22/2025 9:33 AM EDT [facility] MCHC 32.1 30.7 - 35.5 g/dL LAB HEMATOLOGY METHOD 02/22/2025 9:33 AM EDT [facility] RDW 15.7(H) 11.5 - 14.5 % LAB HEMATOLOGY METHOD 02/22/2025 9:33 AM EDT [facility] MPV 10.5 8.8 - 12.5 fL LAB HEMATOLOGY METHOD 02/22/2025 9:33 AM EDT [facility] nRBC 0.0 <=0.0 per 100 WBCs LAB HEMATOLOGY METHOD 02/22/2025 9:33 AM EDT [facility] Blood Venous blood specimen / Unknown Venipuncture / Unknown 02/22/2025 7:18 AM EDT 02/22/2025 7:41 AM EDT us Edil Kiran MD LAB BLOOD ORDERABLES Final Resul t [facility] [address] [place] [address] * (ABNORMAL) Comprehensive metabolic panel (02/22/2025 7:18 AM EDT) Glucose, Plasma 283(H) 74 - 99 mg/dL 02/22/2025 8:16 AM EDT [facility] BUN, Plasma 30(H) 8 - 23 mg/dL 02/22/2025 8:16 AM EDT [facility] Creatinine, Plasma 2.54(H) 0.60 - 1.10 mg/dL 02/22/2025 8:16 AM EDT [facility] BUN/Creatinine Ratio 12 02/22/2025 8:16 AM EDT [facility] Sodium, Plasma 137 136 - 145 mmol/L 02/22/2025 8:16 AM EDT [facility] Potassium, Plasma 4.3 3.6 - 4.9 mmol/L 02/22/2025 8:16 AM EDT [facility] Chloride, Plasma 105 97 - 107 mmol/L 02/22/2025 8:16 AM EDT [facility] CO2, Plasma 24 22 - 29 mmol/L 02/22/2025 8:16 AM EDT [facility] Anion Gap 8 6 - 16 mmol/L 02/22/2025 8:16 AM EDT [facility] Total Calcium, Plasma 8.6(L) 8.9 - 10.2 mg/dL 02/22/2025 8:16 AM EDT [facility] Total Protein 7.2 6.3 - 7.9 g/dL 02/22/2025 8:16 AM EDT [facility] Albumin, Plasma 2.9(L) 3.5 - 5.2 g/dL 02/22/2025 8:16 AM EDT [facility] AST, Plasma 37(H) 10 - 35 U/L 02/22/2025 8:16 AM EDT [facility] ALT, Plasma 15 10 - 35 U/L 02/22/2025 8:16 AM EDT [facility] Alkaline Phosphatase, Plasma 121 46 - 142 U/L 02/22/2025 8:16 AM EDT [facility] Total Bilirubin, Plasma 0.9 0.2 - 1.1 mg/dL 02/22/2025 8:16 AM EDT [facility] eGFRcr 20.9 mL/min/1.7 3m*2 02/22/2025 8:16 AM EDT [facility] Comment:Reported eGFRcr in m L/min/1.73m2 is based the CKD-EPI 2020 equation that does not use a race coefficient. Blood Venous blood specimen / Unknown Venipuncture / Unknown 02/22/2025 7:18 AM EDT 02/22/2025 7:47 AM EDT us Edil Kiran MD LAB BLOOD ORDERABLES Final Resul t [facility] [address] [place] [address] * Creatinine, Plasma (01/03/2025) Only the most recent of2 resultswithin the time period is included. External Creatinine Blood 3.00 mg/dL Blood Venous blood specimen / Unknown 01/03/2025 [facility] Provider MD LAB BLOOD ORDERABLES Afsaneh l Result * Sodium, Plasma (01/03/2025) Only the most recent of2 resultswithin the time period is included. External Sodium 144 mmol/L Blood Venous blood specimen / Unknown 01/03/2025 Result [facility] Provider MD LAB BLOOD ORDERABLES Afsaneh l Result * Albumin, Plasma (01/03/2025) Only the most recent of2 resultswithin the time period is included. External Albumin 3.6 g/dL Blood Venous blood specimen / Unknown 01/03/2025 Result [facility] Provider MD LAB BLOOD ORDERABLES Afsaneh l Result * US OUTSIDE IMAGES (12/31/2024 7:33 AM EDT) Only the most recent of3 resultswithin the time period is included. Anatomical Region Laterality Modality Ultrasound 12/31/2024 7:33 AM EDT Monika Hernandez ACTIVITIES LEADER IMG US PROCEDURES Final Result * Total Bilirubin, Plasma (12/14/2024) External Bilirubin Total 0.9 mg/dL Blood Venous blood specimen / Unknown 12/14/2024 Result [facility] Provider MD LAB BLOOD ORDERABLES Afsaneh l Result * XR OUTSIDE IMAGES (12/10/2024 8:34 AM EDT) Only the most recent of7 resultswithin the time period is included. Anatomical Region Laterality Modality Radiographic Josiane ging 12/10/2024 8:34 AM EDT us External Provider IMG XR PROCEDURES Final Result * CT ABDOMEN OUTSIDE IMAGES (12/02/2024 10:40 AM EDT) Anatomical Region Laterality Modality Computed Tomogra phy 12/02/2024 10:4 0 AM EDT us External Provider IMG CT PROCEDURES Final Result * US ABDOMEN OUTSIDE IMAGES (11/30/2024 4:09 PM EDT) Only the most recent of2 resultswithin the time period is included. Anatomical Region Laterality Modality Ultrasound 11/30/2024 4:09 PM EDT us External Provider IMG US PROCEDURES Final Result * CT MSK OUTSIDE IMAGES (11/29/2024 9:37 PM EDT) Anatomical Region Laterality Modality Computed Tomogra phy 11/29/2024 9:37 PM EDT us External Provider IMG CT PROCEDURES Final Result * (ABNORMAL) Hemoglobin A1c (01/24/2016 1:47 PM EDT) [facility] Signature Hemoglobin A1c 13.2(H) 4.7 - 6.0 % [...] EDT 01/24/2016 6:17 PM EDT Sherri Adkins ACTIVITIES LEADER LAB BLOOD ORDERABLES Final Result SUNQUEST from Last 3 Months or Most Recently Relevant to Health Maintenance Insurance [employer] Care Teams Cost Estimator Relationship Specialty Start Date End Date Monika Hernandez APRN [address] [place] [address] PCP - General 01/19/25 Sary Brannon APRN [address] [place] [address] Referring Physician Gastroenterology 01/07/25
== END 2025-02-28 23:59 | disposition home or self-care (01) ==
LOC: RAD 08:26
PROVIDERS: PCP Family Medicine; Visit Provider Family Medicine
DX: R18.8 Other ascites (principal)
CPT/HCPCS: 76700

== ENCOUNTER 2025-03-08 08:25 | Outpatient (CLI) | payer MEDICARE, MEDICAID, SELFPAY ==
--- OUTSIDE RECORDS SUMMARY | 2018-11-16 06:00 | XMS_ITS | Continuity of Care Document ---
Author Organization [facility] Address [address] [place] [phone] Phone Care Team Providers Care Emergency Services Director Name Role Phone Dane Pink MD Unavailable [...] Provider Providers Copied on Encounter Connor [place] [facility], [address] [place] [address], [id number], tel:[phone] JENNFIER Torres [place] No Information 9 Apryl Vela. [address] [place] [address], [id number] , . tel:[phone] OFFICE/OUTPA TIENT VISIT, EST Connor [place] [facility], [address] [place] [address], [address] [place] [address], tel:[phone] [place] inflammation ck OS (chief complaint) Iritis, recurrent, left eye 9 Apryl Vela. [address] [place] [address], [address] [place] [address] , . tel:[phone] Referring Provider: Self Referred Jose C Connor [place] [facility], [address] [place] [address], [id number], tel:[phone] JENNIFER Torres [place] Anterior Seg ck (chief complaint) Iritis, recurrent, left eye 9 Apryl Vela. [address] [place] [address], [id number] , . tel:[phone] Referring Provider: Maria Teresa Santos, [employer] [address] [place] [address], [facility]. tel:[phone] Family History Family Member Type Diagnosis Age At Onset Problem (finding) Family history of Diabe reynold mellitus Problem (finding) Family history of Cardi ovascular disease Problem (finding) Family history of glauc haroon Payers Payer name Insurance type Covered democrat ID Authoriza tion(s) Medicare [facility] [id number] Social History Type Description Quantity Date Captured [...]
--- OUTSIDE RECORDS SUMMARY | 2025-02-22 09:20 | XMS_ITS | Encounter Summary ---
Author Organization Healthcare Address [address] [place] [address] Care Team Providers Care Manager R D Name Role Phone Sary Brannon TELEVISION HOST Unavailable [phone] Monika Hernandez APRN Primary Care Provider [phone] Reason for Referral * Consultation (Routine) - Authorized Specialty Diagnoses / Procedures Referred By Contac t Referred To Contact Physical Therapy Diagnoses End-stage liver disease (CMS/HCC) Ollie Calvo MD [address] [address] Phone: tel: fax: Referral ID Status Reason Start Date Expiration Date Visits Requested Visits Authorized [id number] Authorized Consult and Treat 02/22/2025 08/24/2026 1 1 * Imaging (Routine) - Pending Review Specialty Diagnoses / Procedures Referred By Contmazin t Referred To Contact Diagnoses End-stage liver disease (CMS/HCC) Procedures US Abdomen Ollie Calvo MD [address] [address] Phone: tel: fax: Referral ID Status Reason Start Date Expiration Date V isits Requested Visits Authorized [id number] Pending Review 02/22/2025 08/24/2026 1 1 * Imaging (Routine) - Pending Review Specialty Diagnoses / Procedures Referred By Mayela may Referred To Contact Gastroenterology Diagnoses End-stage liver disease (CMS/HCC) Procedures EGD Ollie Calvo MD [address] [address] Phone: tel: fax: Referral ID Status Reason Start Date Expiration Date Visits Requested Visits Authorized [id number] Pending Review Specialty Services Required 02/22/2025 08/24/2026 1 1 Reason for Visit * Reason Comments Pre-Liver Txp Follow-up * Consultation (Routine) - Closed Specialty Diagnoses / Procedures Referred By Mayela may Referred To Contact Transplant Diagnoses End-stage liver disease (CMS/HCC) Edil Kiran MD [address] [facility] [address] [place] [phone] Phone: tel: fax: [facility] [place] [address] [address] Phone: tel: fax: Referral ID Status Reason Start Date Expiration Date V isits Requested Visits Authorized [id number] Closed Specialty Services Required 01/19/2025 07/21/2026 1 1 Encounter Details Date Type Department Care Team (Late st Contact Info) Description 02/22/2025 9:20 AM EDT Office Visit [facility] [address] [phone] Ollie Calvo MD [address] [address] End-stage liver disease (CMS/HCC) (Primary [...] Txp Follow-up Edil Kiran MD [address] [address] [facility] Patient is a 64 year old female with a past medical history of decompensated cirrhosis secondary toMASLD. Patient presents today for initial transplant consultation. Patient was initially diagnosed with cirrhosis around 3 years ago. She was hospitalized in [facility] for hepatorenal syndrome and was treated [...] as well. She then followed with her Registered Nurse Surgical Services with Holter monitor and Amio was discontinued [...] 8 week repeat Colonoscopy: performed 01/2021 at [facility] with polypectomy (TA). 1 year repeat was [...] TO TEST BID, Disp: , Rfl: HYDROcodone-acetaminophen ([place]) 10-325 MG tablet, , Disp: , Rfl: [...] Appointment [facility] Radiology [address] [place] [address] 03/22/2025 9:00 AM EDT Clinical Support [facility] [place] [address] [place] [address] 03/22/2025 10:30 AM EDT Office Visit [facility] [place] [address] [place] [address] Geronimo Tran MD [address] [facility] [address] [place] [address] Scheduled Orders Name Type Priority [...] as of this encounter Care Teams Manager R D Relationship Specialty Start Date End Date Monika Hernandez APRN [address] [place] [address] PCP - General 01/19/25 Sary Brannon APRN [address] [place] [address] Referring Physician Gastroenterology 01/07/25 documented as of this encounter
--- OUTSIDE RECORDS SUMMARY | 2025-03-08 08:36 | XMS_ITS | Encounter Summary ---
Author Organization Healthcare Address [address] 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, unspecified vessel or lesion type (CMS/[facility]) Social History Tobacco Use Types Packs/Day [...] EDT Appointment [facility] Radiology [address] [place] [address] 03/22/2025 9:00 AM EDT Clinical Support [facility] [address] [facility] [address] [place] [address] 03/22/2025 10:30 AM EDT Office Visit [facility] [address] [place] [address] Geronimo Tran MD [address] [facility] [address] [place] [address] documented as of this encounter Visit Diagnoses Diagnosis CKD (chronic kidney disease) stage 2, GFR 60-89 ml/min Chronic kidney disease, Stage II (mild) Microalbuminuria Proteinuria 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 spasm, unspecified vessel or lesion type (CMS/HCC) documented in this encounter Additional Health Concerns Assessment Noted Time A fall risk assessment has been complete d for the patient 01/02/2022 1:17 PM EDT A Body Mass Index follow-up plan has been documented for the patient 11/13/2022 11:41 AM EDT documented as of this encounter Care Teams Box Blank Machine Operator Relationship Specialty Start Date End Date Larry Bedolla MD [address] [place] [address] PCP - General 12/08/20 01/18/25 Monika Hernandez APRN [address] [place] [address] PCP - General 01/19/25 Sary Brannon APRN [address] [place] [address] Referring Physician Gastroenterology 01/07/25 documented as of this encounter
--- OUTSIDE RECORDS SUMMARY | 2025-03-08 08:38 | XMS_ITS | Encounter Summary ---
Author Organization Healthcare Address [address] [place] [address] Care Team Providers Care Mechanic Sound Technician Name Role Phone Larry Bedolla MD Primary Care Provider + [phone] Sary Brannon APRN Unavailable [phone] Monika Hernandez APRN Primary Care Provider + [phone] Encounter Details Date Type Department Care Team (Late st Contact Info) Description 11/30/2024 Orders Only External Location [address] [place] [address] Provider, External Social History Tobacco Use Types [...] EDT Appointment [facility] [address] [place] [address] 03/22/2025 9:00 AM EDT Clinical Support [facility] [address] [facility] [address] [place] [address] 03/22/2025 10:30 AM EDT Office Visit [facility] [address] [place] [id number] Geronimo Tran MD [address] [place] [address] documented as of this encounter Procedures Procedure [...] documented as of this encounter Care Teams Mechanic Sound Technician Relationship Specialty Start Date End Date Larry Bedolla MD [address] [place] [address] PCP - General 12/08/20 01/18/25 Monika Hernandez APRN [address] [place] [address] PCP - General 01/19/25 Sary Brannon APRN [address] [facility] [address] [place] [address] Referring Physician Gastroenterology 01/07/25 documented as of this encounter
--- OUTSIDE RECORDS SUMMARY | 2025-03-08 08:38 | XMS_ITS | Clinical Summary ---
Author Organization [facility] [place] [address] Care Team Providers Care [facility] Aides Teacher Name Role Phone Unavailable Primary Care Provider [...] Zoster (1 of 2) 2012 COVID-19 Vaccine ( - 2023-2 5 season) 2024 Influenza Vaccine (#1) 2025 Hepatitis B Vaccine Aged Out No longe r eligible based on patient's age to complete this topic Meningococcal B Vaccine Aged Out No l onger eligible based on patient's age to complete this topic
--- OUTSIDE RECORDS SUMMARY | 2025-03-08 08:38 | XMS_ITS | Clinical Summary ---
Author Organization [employer] ([place], [place], [place], [place]) Address [address] [place] [address] Care Team Providers Care Pitching Coach Name Role Phone Provider, Not In System [...] Problem Noted Date Diagnosed Date Anasarca 11/30/2024 Keren 11/29/2024 Encounters Date Type Department Care Team Description 12/06/2024 Telephone [facility] - [place] [address] [place] [address] Mimi Moreno RN Appointment 11/30/2024 1:43 AM EDT - 12/14/2024 5:30 PM EDT Hospital Encounter [address] Medical Telemetry Unit 1 [place] [address] Albert Garcia MD Shamsulddin, Haider, MD Zohary, Yasser, MD Majeed, Irfan, MD Edie, David Wilde, Mikhail Plasencia MD Melena (Primary Dx); Discharge Disposition: Home or Self Care from Last 3 Months Social History Tobacco Use Types Packs/Day Years Used Date Smoking Tobacco: Never Passive Smoke Exposure: Never Smokeless Tobacco: Never Tobacco Cessation:Counseling Given: Not Answered Alcohol Use Standard Drinks/Week Comments Never 0 (1 standard drink = 0.6 oz pur e alcohol) Utilities Answer Date Recorded In the past 12 months, has t he [employer], gas, oil, or water company threatened to [...] harm? Never 11/30/2024 How often does anyone, inclu ding family and friends, scream or curse at [...] Do you speak a language other than Romanian at [facility]? No 11/30/2024 Do you want [...] 05/13/2021, 04/15/2021, 11/08/2020 Medicare IPPE ([facility] to [place]) [id number] 07/28/2024 Influenza Vaccine (#1) 2025 Pneumococcal 50+ years (3 of 3 - PCV20 or PCV21) 05/15/2025 05/15/2020, 07/09/2016 [facility] 11/30/2025 11/30/2024 DTAP/TDAP/TD VACCINES (2 - [...] GLUCOSE POC Routine 12/13/2024 5:46 AM EDT [facility] CBC SCAN Routine 12/13/2024 3:15 AM EDT HEPATIC FUNCTION PANEL Routine 3:15 AM EDT CBC W/ AUTO DIFF Routine 12/13/2024 3:15 AM EDT BASIC METABOLIC PANEL Routine 12/13/2024 3:15 AM EDT NOVA GLUCOSE POC Routine 12/12/2024 8:01 PM EDT NOVA GLUCOSE POC Routine 12/12/2024 3:51 PM EDT NOVA GLUCOSE POC Routine 12/12/2024 10:3 1 AM EDT FS_MODEL_IP_ECG 12-LEAD Routine 12/12/2024 9:22 AM EDT NOVA GLUCOSE POC Routine 12/12/2024 5:43 AM EDT [facility] CBC SCAN Routine 12/12/2024 3:47 AM [...] GLUCOSE POC Routine 12/07/2024 5:51 AM EDT ERYTHROPOIETIN(SENDOUT ) Routine 12/07/2024 3:59 AM EDT AMMONIA Routine [...] HEMOGRAM (SJ-BKR) Routine 12/06/2024 3:13 AM EDT HEMOGLOBIN A1C Routine 11/30/2024 8:20 AM EDT from Last 3 Months or Most Recently Relevant to Health Maintenance Results * (ABNORMAL) Glucose, Nova Meter (12/14/2024 3:41 PM EDT) Only the most recent of36 resultswithin the time period is included. POC-GLUCOSE 203(H) 70 - 110 mg/dL 12/14/2024 3:42 PM EDT [facility] Comment: In the event of poor peripheral blood flow, venous or arterial blood should be used due to the potential of erroneous results. Notified Nurse RBV Peach Grower [phone] 12/14/2024 3:42 PM EDT [facility] Blood WHOLE BLOOD / Unknown 12/14/2024 3:41 PM EDT 12/14/2024 3:42 PM EDT Narrative [facility] - 12/14/2024 3:42 PM EDT Peach Grower ID is - [id number] us David Coffman PA-C POINT OF CARE TEST ORDERABLES Final Result [facility] [address] [phone] * ECG 12 lead (12/14/2024 9:10 AM EDT) Only the most recent of9 resultswithin the time period is included. VENTRICULAR RATE EKG/MIN 89 BPM GE MUSE ATRIAL RATE (MCT) 89 BPM GE MUSE CA Interval 146 ms GE MUSE QRS-INTERVAL (MSEC) 86 ms GE MUSE QT Interval 432 ms GE MUSE QTC Interval 525 ms GE MUSE P [facility] 34 degrees GE MUSE R AXIS (MCT) -13 degrees GE MUSE T Wave [facility] -2 degrees GE MUSE [place] Diagnosis Normal sinus rhythm Septal infarct (cited on or before 14-DEC-2024 ) Confirmed by DEYSI JON M.D. ([id number]) on 12/14/2024 5:07:26 PM GE MUSE 12/14/2024 9:10 AM EDT 12/14/2024 5:07 PM EDT us Deysi Jon MD ECG ORDERABLES Final Result GE MUSE * (ABNORMAL) CBC with automated diff (12/14/2024 2:54 AM EDT) Only the most recent of4 resultswithin the time period is included. WBC 1.4(LL) 4.0 - 10.0 K/ L 12/14/2024 3:45 AM EDT [facility] RBC 2.45(L) 3.93 - 5.22 M/ L 12/14/2024 3:45 AM EDT [facility] Hemoglobin 7.6(L) 11.2 - 15.7 GM/DL 12/14/2024 3:45 AM EDT [facility] Hematocrit 24.1(L) 34.1 - 44.9 % 12/14/2024 3:45 AM EDT [facility] MCV 98(H) 79 - 95 fL 12/14/2024 3:45 AM EDT [facility] MCH 31.0 25.6 - 32.2 pg 12/14/2024 3:45 AM EDT [facility] MCHC 31.5(L) 32.2 - 35.5 GM/DL 12/14/2024 3:45 AM EDT [facility] RDW 16.3(H) 11.7 - 14.4 % 12/14/2024 3:45 AM EDT [facility] Platelets 51(L) 140 - 375 K/CU MM 12/14/2024 3:45 AM EDT [facility] MPV 12.3 9.4 - 12.3 fL 12/14/2024 3:45 AM EDT [facility] % Neutros 54 34 - 71 % 12/14/2024 3:45 AM EDT [facility] % Lymphs 32 19 - 52 % 12/14/2024 3:45 AM EDT [facility] % Monos 14(H) 5 - 13 % 12/14/2024 3:45 AM EDT [facility] % Eos 0(L) 1 - 6 % 12/14/2024 3:45 AM EDT [facility] % Baso 1 0 - 1 % 12/14/2024 3:45 AM EDT [facility] NRBC Absolute <0.01 0 - 0.012 K/ul 12/14/2024 3:45 AM EDT [facility] # Neutros 0.76(L) 1.56 - 6.13 K/ L 12/14/2024 3:45 AM EDT [facility] # Lymphs 0.45(L) 1.18 - 3.74 K/ L 12/14/2024 3:45 AM EDT [facility] # Monos 0.19(L) 0.24 - 0.86 K/ L 12/14/2024 3:45 AM EDT [facility] # Eos <0.03(L) 0.04 - 0.36 K/ L 12/14/2024 3:45 AM EDT [facility] # Baso <0.03 0.01 - 0.08 K/ L 12/14/2024 3:45 AM EDT [facility] Immature Granulocytes-Re lative 0.00(L) 0.01 - 0.43 % 12/14/2024 3:45 AM EDT [facility] # IG <0.03 0.00 - 0.03 K/uL 12/14/2024 3:45 AM EDT [facility] Blood Venipuncture / Unknown 12/14/2024 2:54 AM EDT 12/14/2024 3:27 AM EDT Narrative [facility] - 12/14/2024 3:45 AM EDT When [...] Flag noted Atypical Lymph flag noted us aDvid Coffman PA-C LAB BLOOD ORDERABLES Final Re sult [facility] [address] [phone] * (ABNORMAL) Comprehensive metabolic panel (12/14/2024 2:54 AM EDT) Only the most recent of3 resultswithin the time period is included. Sodium 145 136 - 145 meq/L 12/14/2024 4:13 AM EDT [facility] Potassium 3.5 3.4 - 5.1 meq/L 12/14/2024 4:13 AM EDT [facility] Chloride 109 98 - 112 meq/L 12/14/2024 4:13 AM EDT [facility] CO2 27 22 - 29 meq/L 12/14/2024 4:13 AM EDT [facility] Calcium 8.6 8.4 - 10.2 mg/dL 12/14/2024 4:13 AM EDT [facility] Glucose 146(H) 82 - 115 mg/dL 12/14/2024 4:13 AM EDT [facility] BUN 67.7(H) 9.8 - 20.1 mg/dL 12/14/2024 4:13 AM EDT [facility] Creatinine 2.22(H) 0.57 - 1.11 mg/dL 12/14/2024 4:13 AM EDT [facility] BUN/Creatinine 30(H) 8 - 20 12/14/2024 4:13 AM EDT [facility] eGFR (mL/min/1.73m2) 25(L) >=60 mL/min/1. 73m2 12/14/2024 4:13 AM [facility] Albumin 3.2(L) 3.5 - 5.0 g/dL 12/14/2024 4:13 AM [facility] Alkaline Phosphatase 56 40 - 150 U/L 12/14/2024 4:13 AM [facility] ALT 21 <=34 U/L 12/14/2024 4:13 AM [facility] Comment: ALT2 reagent used for testing does not contain P5P supplementation and therefore may miss ALT elevations in patients with B6 deficiency. This population may be as high as 10% in the [place], with risk factors including malabsorption, drug interactions, and alcoholic hepatitis. AST 52(H) 11 - 34 U/L 12/14/2024 4:13 AM [facility] Comment: AST2 reagent used for testing does not contain P5P supplementation and therefore may miss AST elevations in patients with B6 deficiency. This population may be as high as 10% in the [place], with risk factors including malabsorption, drug interactions, and alcoholic hepatitis. Total Bilirubin 0.9 0.2 - 1.2 mg/dL 12/14/2024 4:13 AM [facility] Protein, Total 5.9(L) 6.4 - 8.3 g/dL 12/14/2024 4:13 AM [facility] Globulin 2.7 2.5 - 4.1 g/dL 12/14/2024 4:13 AM [facility] Anion Gap 13(H) 4 - 12 12/14/2024 4:13 AM [facility] A/G Ratio 1.2 0.7 - 1.9 12/14/2024 4:13 AM [facility] Osmolality Calc 311.0 mOsm/kg 4:13 AM [facility] Blood Venipuncture / Unknown 12/14/2024 2:54 AM EDT 12/14/2024 3:26 AM EDT David Coffman PA-C LAB BLOOD ORDERABLES Final Re sult Performing Organization Address City/[facility]/ZIP Co de Phone Number [facility] [address] [phone] * (ABNORMAL) CBC Scan (12/13/2024 3:15 AM EDT) Only the most recent of2 resultswithin the time period is included. Pathologist [facility] Platelet Estimate Decreased (A) Adequate 12/13/2024 4:55 AM EDT [facility] RBC Morphology abnormal( A) Normal 12/13/2024 4:55 AM EDT [facility] Anisocytosis 1+ 12/13/2024 4:55 AM EDT [facility] Hypochromia 1+ 12/13/2024 4:55 AM EDT [facility] Ovalocytes 1+ 12/13/2024 4:55 AM EDT [facility] Blood Venipuncture / Unknown 12/13/2024 3:15 AM EDT 12/13/2024 3:27 AM EDT us Venkatesh Stephen MD LAB BLOOD ORDERABLES Final Resul t Performing Organization Address [facility]/ZIP Co de Phone Number [facility] 1 [place] [address], [facility] [phone] * (ABNORMAL) Hepatic function panel (12/13/2024 3:15 AM EDT) Pathologist [facility] Protein, Total 5.7(L) 6.4 - 8.3 g/dL 12/13/2024 4:13 AM EDT [facility] Albumin 3.1(L) 3.5 - 5.0 g/dL 12/13/2024 4:13 AM EDT [facility] Total Bilirubin 0.8 0.2 - 1.2 mg/dL 12/13/2024 4:13 AM EDT [facility] Bilirubin, Direct 0.4 0.0 - 0.5 mg/dL 12/13/2024 4:13 AM EDT [facility] Alkaline Phosphatase 53 40 - 150 U/L 12/13/2024 4:13 AM EDT [facility] Globulin 2.6 2.5 - 4.1 g/dL 12/13/2024 4:13 AM EDT [facility] A/G Ratio 1.2 0.7 - 1.9 12/13/2024 4:13 AM EDT [facility] AST 42(H) 11 - 34 U/L 12/13/2024 4:13 AM EDT [facility] Comment: AST2 reagent used for testing does not contain P5P supplementation and therefore may miss AST elevations in patients with B6 deficiency. This population may be as high as 10% in the [place], with risk factors including malabsorption, drug interactions, and alcoholic hepatitis. ALT 16 <=34 U/L 12/13/2024 4:13 AM EDT [facility] Comment: ALT2 reagent used for testing [...] OROZCO LAB BLOOD ORDERABLES Final Resu lt [facility] [address] [phone] * (ABNORMAL) Basic Metabolic Panel (12/13/2024 3:15 AM EDT) Only the most recent of5 resultswithin the time period is included. Sodium 147(H) 136 - 145 meq/L 12/13/2024 4:13 AM EDT [facility] Potassium 3.5 3.4 - 5.1 meq/L 12/13/2024 4:13 AM EDT [facility] CO2 27 22 - 29 meq/L 12/13/2024 4:13 AM EDT [facility] Chloride 110 98 - 112 meq/L 12/13/2024 4:13 AM EDT [facility] Glucose 135(H) 82 - 115 mg/dL 12/13/2024 4:13 AM EDT [facility] BUN 71.9(H) 9.8 - 20.1 mg/dL 12/13/2024 4:13 AM EDT [facility] Creatinine 2.29(H) 0.57 - 1.11 mg/dL 12/13/2024 4:13 AM EDT [facility] BUN/Creatinine 31(H) 8 - 20 12/13/2024 4:13 AM EDT [facility] Calcium 8.5 8.4 - 10.2 mg/dL 12/13/2024 4:13 AM EDT [facility] Anion Gap 14(H) 4 - 12 12/13/2024 4:13 AM EDT [facility] eGFR (mL/min/1.73m2) 24(L) >=60 mL/min/1.7 3m2 12/13/2024 4:13 AM EDT [facility] Osmolality Calc 315.6 mOsm/kg 4:13 AM EDT [facility] Blood Venipuncture / Unknown 12/13/2024 3:15 AM EDT 12/13/2024 3:39 AM EDT us Venkatesh Stephen MD LAB BLOOD ORDERABLES Final Resul t [facility] [address] [phone] * US paracentesis (12/10/2024 11:37 AM EDT) [...] Ascites. ATTENDING PHYSICIAN: Dr. Haseeb Gil PHYSICIAN POCKET SETTER LOCKSTITCH: Sujit Blackman PA-C FINDINGS: After informed consent [...] Ascites. ATTENDING PHYSICIAN: Dr. Haseeb Gil PHYSICIAN POCKET SETTER LOCKSTITCH: Sujit Blackman PA-C FINDINGS: After informed consent [...] Blackman PA-C. us Mary Carmen Mcfadden MD [facility] US ORDERABLES Final Result * ALT (SGPT) (12/10/2024 9:53 AM EDT) ALT 12 <=34 U/L 12/10/2024 11:02 AM EDT [facility] Comment: ALT2 reagent used for testing [...] Resul t Performing Organization Address [facility] Co de Phone Number [facility] [address] [phone] * (ABNORMAL) AST (SGOT) (12/10/2024 9:53 AM EDT) AST 39(H) 11 - 34 U/L 12/10/2024 11:02 AM EDT [facility] Comment: AST2 reagent used for testing does not contain P5P supplementation and therefore may miss AST elevations in patients with B6 deficiency. This population may be as high as 10% in the [place], with risk factors including malabsorption, drug interactions, and alcoholic hepatitis. [employer] has become aware of sulfasalazine and sulfapyridine [...] MD LAB BLOOD ORDERABLES Final Resul t [facility] [address] [phone] * Magnesium (12/10/2024 9:53 AM EDT) Only the most recent of3 resultswithin the time period is included. Magnesium 2.3 1.6 - 2.6 mg/dL 12/10/2024 11:02 AM EDT [facility] Blood Venipuncture / Unknown 12/10/2024 9:53 AM EDT 12/10/2024 10:39 AM EDT us Deysi Jon MD LAB BLOOD ORDERABLES Final Resul t [facility] 1 [place] [address], [facility] [phone] * XR chest AP portable (12/10/2024 9:10 AM EDT) Only the most recent of4 resultswithin the time period is included. Anatomical [...] 6:42 AM EDT) Only the most recent of6 resultswithin the time period is included. pH, Arterial 7.30(L) 7.35 - 7.45 12/10/2024 6:51 AM [facility] pCO2, Arterial 49(H) 35 - 45 mm Hg 12/10/2024 6:51 AM [facility] pO2, Arterial 119(H) 80 - 100 mm Hg 12/10/2024 6:51 AM [facility] HCO3, Arterial 24 20 - 26 mmol/L 12/10/2024 6:51 AM [facility] Base Excess, Arterial -2.4(L) -2.0 - 2.0 mmol/L 12/10/2024 6:51 AM [facility] O2 Sat, Arterial >99.2 95.0 - 100.0 % 12/10/2024 6:51 AM [facility] Comment:notified at read-anny k verification CTO2 ARTERIAL 11.9 mmol/L 12/10/2024 6:51 AM [facility] THB ARTERIAL 8.5(L) 12.0 - 18.0 g/dL 12/10/2024 6:51 AM [facility] COLLECTION SITE Left Radial 12/10/2024 6:51 AM [facility] Arterial Puncture Yes 12/10/2024 6:51 AM [facility] Blood Gas O2 Delivery Device Cannula 12/10/2024 6:51 AM [facility] Oxygen Flow Rate 4 12/11/19 25 6:51 AM [facility] Blood Gas PT Temperature C 37.0 12/10/2024 6:51 AM [facility] Sen's Test Acceptable 12/10/2024 6:51 AM [facility] ABG Number of Draw Attempts 1 12/10/2024 6:51 AM [facility] FIO2 12/10/2024 6:51 AM [facility] Blood Gas Temperature Corrected Results No No 12/10/2024 6:51 AM [facility] Blood, Arterial Collection / Unknown 12/10/2024 6:42 AM EDT 12/10/2024 6:51 AM EDT us Blanka Alvarez MD LAB BLOOD ORDERABLES Final Re sult [facility] 1 [place] [address], [facility] [phone] * (ABNORMAL) CBC - Hemogram (SJ-BKR) (12/09/2024 3:38 AM EDT) Only the most recent of4 resultswithin the time period is included. WBC 2.4(L) 4.0 - 10.0 K/ L 12/09/2024 3:59 AM EDT [facility] RBC 2.83(L) 3.93 - 5.22 M/ L 12/09/2024 3:59 AM EDT [facility] Hemoglobin 8.5(L) 11.2 - 15.7 GM/DL 12/09/2024 3:59 AM EDT [facility] Hematocrit 28.0(L) 34.1 - 44.9 % 12/09/2024 3:59 AM EDT [facility] MCV 99(H) 79 - 95 fL 12/09/2024 3:59 AM EDT [facility] MCH 30.0 25.6 - 32.2 pg 12/09/2024 3:59 AM EDT [facility] MCHC 30.4(L) 32.2 - 35.5 GM/DL 12/09/2024 3:59 AM EDT [facility] RDW 17.2(H) 11.7 - 14.4 % 12/09/2024 3:59 AM EDT [facility] Platelets 55(L) 140 - 375 K/CU MM 12/09/2024 3:59 AM EDT [facility] MPV 11.5 9.4 - 12.3 fL 12/09/2024 3:59 AM EDT [facility] Blood Venipuncture / Unknown 12/09/2024 3:38 AM EDT 12/09/2024 3:45 AM EDT us Mary Carmen Mcfadden MD LAB BLOOD ORDERABLES Final Resu lt [facility] 1 [place] [address], [facility] [phone] * Erythropoietin(SENDOUT) (12/07/2024 3:59 AM EDT) Erythropoietin 19 4 - 27 mU/mL 12/08/2024 2:30 PM EDT [employer] Comment: INTERPRETIVE INFORMATION: Erythropoietin Normal serum concentrations [...] benefit from therapy with recombinant EPO (NEJ [id number]). Performed By: [employer] [address] [place] [id number] Care Provider: Lalo Mortensen MD, PhD CLIA Number: [id number] Blood Venipuncture / Unknown 12/07/2024 3:59 AM EDT 12/07/2024 4:11 AM EDT Ariel Mills MD LAB BLOOD ORDERABLES Final Res ult [employer] Ayannah [address] [place] [address] * Ammonia (12/07/2024 3:59 AM EDT) Only the most recent of2 resultswithin the time period is included. Ammonia 44 18 - 72 mol/L 12/07/2024 4:37 AM EDT [facility] Blood Venipuncture / Unknown 12/07/2024 3:59 AM EDT 12/07/2024 4:22 AM EDT Timothy Bai MD LAB BLOOD ORDERABLES Final Result Performing Organization Address [facility]/ZIP Co de Phone Number [facility] [address] [phone] * (ABNORMAL) Ferritin (12/06/2024 3:13 AM EDT) Ferritin 256.82(H) 4.63 - 204.00 ng/mL 12/06/2024 8:25 AM EDT [facility] Blood Venipuncture / Unknown 12/06/2024 3:13 AM EDT 12/06/2024 3:50 AM EDT us Ariel Mills MD LAB BLOOD ORDERABLES Final Res ult [facility] [address] [phone] * Hemoglobin A1c (11/30/2024 8:20 AM EDT) Hemoglobin A1C 4.9 4.0 - 5.6 % 11/30/2024 9:17 AM EDT [facility] Comment: Hemoglobin A1C levels are related to mean glucose during the preceding 2-3 months. Less than 7% demonstrates glycemic control in diabetic patients. Hemoglobin AlC % Suggested Diagnosis > or = 6.5 Diabetic 5.7 - 6.4 Prediabetic <5.7 Non-diabetic eAVG Glucose 93.93 70 - 126 mg/dL 11/30/2024 9:17 AM EDT [facility] Blood Venipuncture / Unknown 11/30/2024 8:20 AM EDT 11/30/2024 9:07 AM EDT us Mikhail Hurtado MD LAB BLOOD ORDERABLES Final Resul t [facility] [address] [phone] from Last 3 Months or Most Recently Relevant to Health Maintenance Insurance [facility] ADV [facility] Advance Directives For more information, please contact: [phone] * Full Code (Latest Code Status on File) Date Activated Date Inactivated Comments 11/30/2024 2:06 AM 12/14/2024 6:30 PM Care Teams Pitching Coach Relationship Specialty Start Date End Date Provider, Not In System [place] PCP - General 12/14/24
--- OUTSIDE RECORDS SUMMARY | 2025-03-08 08:38 | XMS_ITS | Encounter Summary ---
Author Organization Healthcare Address [address] [place] [address] Care Team Providers Care Invoice Coder Name Role Phone Larry Bedolla MD Primary Care Provider + [phone] Sary Brannon APRN Unavailable [phone] Monika Hernandez APRN Primary Care Provider + [phone] Encounter Details Date Type Department Care Team (Late st Contact Info) Description 11/30/2024 Orders Only External Location [address] [place] [address] Provider, External Social History Tobacco Use Types [...] EDT Appointment [facility] [address] [place] [address] 03/22/2025 9:00 AM EDT Clinical Support [facility] [address] [facility] [address] [place] [address] 03/22/2025 10:30 AM EDT Office Visit [facility] [address] [place] [address] Geronimo Tran MD [address] [place] [address] documented as of this encounter Procedures Procedure [...] documented as of this encounter Care Teams Invoice Coder Relationship Specialty Start Date End Date Larry Bedolla MD [address] [place] [address] PCP - General 12/08/20 01/18/25 Monika Hernandez APRN [address] [place] [address] PCP - General 01/19/25 Sary Brannon APRN 1210 [facility] [address] [place] [address] Referring Physician Gastroenterology 01/07/25 documented as of this encounter
--- OUTSIDE RECORDS SUMMARY | 2025-03-08 08:38 | XMS_ITS | Encounter Summary ---
Author Organization Healthcare Address [address] [place] [address] Care Team Providers Care Manager Of Employee Relations Name Role Phone Sary Brannon MACHINE BUNCH MAKER Unavailable [phone] David Monika ÁNGEL Primary Care Provider + [phone] Encounter Details Date Type Department Care Team [...] Appointment [facility] Radiology [address] [place] [address] 03/22/2025 9:00 AM EDT Clinical Support [facility] [place] [address] [address] 03/22/2025 10:30 AM EDT Office Visit [facility] [place] [address] [address] Geronimo Tran MD [address] [facility] [address] [place] [address] documented as of this encounter Visit Diagnoses Not on filedocumented in this encounter Additional Health Concerns Assessment Noted Time A fall risk assessment has been complete d for the patient 02/22/2025 8:10 AM EDT A Body Mass Index follow-up plan has been documented for the patient 02/26/2025 2:56 PM EDT documented as of this encounter Care Teams Manager Of Employee Relations Relationship Specialty Start Date End Date Monika Hernandez APRN [address] [place] [address] PCP - General 01/19/25 Sary Brannon APRN [address] [place] [address] Referring Physician Gastroenterology 01/07/25 documented as of this encounter
--- OUTSIDE RECORDS SUMMARY | 2025-03-08 08:38 | XMS_ITS | Encounter Summary ---
Author Organization Healthcare Address [address] [place] [address] Care Team Providers Care Steam And Power Superintendent Name Role Phone Larry Bedolla MD Primary Care Provider + [phone] Sary Brannon DEPUTY CLERK OF SUPERIOR COURT Unavailable [phone] Monika Hernandez APRN Primary Care Provider [phone] Reason for Visit * Reason Comments Med Refill Encounter Details Date Type Department Care Team (Late st Contact Info) Description 04/12/[address] [facility] Endocrinology [address] [place] [address] Lina Lowe, DEPUTY CLERK OF SUPERIOR COURT 2195 [facility] [address] [place] [address] Social History Tobacco Use Types [...] EDT Appointment [facility] Radiology [address] [place] [address] 03/22/2025 9:00 AM EDT Clinical Support [facility] [address] [place] [address] 03/22/2025 10:30 AM EDT Office Visit [facility] [place] [address] [place] [address] Geronimo Tran MD [address] [facility] [address] [place] [address] documented as of this encounter Visit Diagnoses Not on filedocumented in this encounter Care Teams Steam And Power Superintendent Relationship Specialty Start Date End Date Larry Bedolla MD [address] [place] [address] PCP - General 12/08/20 01/18/25 Monika Hernandez APRN [address] [place] [address] PCP - General 01/19/25 Sary Brannon APRN 1210 [facility] [address] [place] [address] Referring Physician Gastroenterology 01/07/25 documented as of this encounter
--- OUTSIDE RECORDS SUMMARY | 2025-03-08 08:38 | XMS_ITS | Encounter Summary ---
Author Organization Healthcare Address [address] [place] [address] Care Team Providers Care Material Planner Name Role Phone Larry Bedolla MD Primary Care Provider + [phone] Sary Brannon APRN Unavailable [phone] Monika Hernandez APRN Primary Care Provider + [phone] Encounter Details Date Type Department Care Team (Late st Contact Info) Description 12/03/2024 Orders Only External Location [address] [place] [address] Provider, External Social History Tobacco Use Types [...] EDT Appointment [facility] Radiology [address] [place] [address] 03/22/2025 9:00 AM EDT Clinical Support [facility] [address] [facility] [address] [place] [address] 03/22/2025 10:30 AM EDT Office Visit [facility] [address] [place] [address] Geronimo Tran MD [address] [place] [address] documented as of this encounter Procedures Procedure [...] documented as of this encounter Care Teams Material Planner Relationship Specialty Start Date End Date aLrry Bedolla MD [address] [place] [address] PCP - General 12/08/20 01/18/25 Monika Hernandez APRN [address] [place] [address] PCP - General 01/19/25 Sary Brannon APRN 1210 [facility] [address] [place] [address] Referring Physician Gastroenterology 01/07/25 documented as of this encounter
--- OUTSIDE RECORDS SUMMARY | 2025-03-08 08:38 | XMS_ITS | Clinical Summary ---
Author Organization [facility] Address [address] [place] [address] Care Team Providers Care Professor Computer Science Name Role Phone Sherri Adkins APRN Primary [...] 2024 INFLUENZA VACCINE 04/27/2025 Insurance [employer] Care Teams Professor Computer Science Relationship Specialty Start Date End Date Sherri Adkins APRN [address] [place] [address] PCP - General Family Medicine 03/12/16
--- OUTSIDE RECORDS SUMMARY | 2025-03-08 08:38 | XMS_ITS | Encounter Summary ---
Author Organization Healthcare Address [address] [place] [address] Care Team Providers Care Tombstone Setter Name Role Phone Larry Bedolla MD Primary Care Provider + [phone] Sary Brannon APRN Unavailable [phone] Monika Hernandez APRN Primary Care Provider + [phone] Encounter Details Date Type Department Care Team (Late st Contact Info) Description 12/10/2024 Orders Only External Location [address] [place] [address] Provider, External Social History Tobacco Use Types [...] EDT Appointment [facility] Radiology [address] [place] [address] 03/22/2025 9:00 AM EDT Clinical Support [facility] [address] [facility] [address] [place] [address] 03/22/2025 10:30 AM EDT Office Visit [facility] [address] [place] [address] Geronimo Tran MD [address] [place] [address] documented as of this encounter Procedures Procedure [...] documented as of this encounter Care Teams Tombstone Setter Relationship Specialty Start Date End Date Larry Bedolla MD [address] [place] [address] PCP - General 12/08/20 01/18/25 Monika Hernandez APRN [address] [place] [address] PCP - General 01/19/25 Sary Brannon APRN 1210 [facility] [address] [place] [address] Referring Physician Gastroenterology 01/07/25 documented as of this encounter
--- OUTSIDE RECORDS SUMMARY | 2025-03-08 08:38 | XMS_ITS | Encounter Summary ---
Author Organization Healthcare Address [address] [place] [address] Care Team Providers Care Home Sales Consultant Name Role Phone Larry Bedolla MD Primary Care Provider + [phone] Sary Brannon APRN Unavailable [phone] Monika Hernandez APRN Primary Care Provider + [phone] Encounter Details Date Type Department Care Team (Late st Contact Info) Description 12/09/2024 Orders Only External Location [address] [place] [address] Provider, External Social History Tobacco Use Types [...] EDT Appointment [facility] Radiology [address] [place] [address] 03/22/2025 9:00 AM EDT Clinical Support [facility] [address] [facility] [address] [place] [address] 03/22/2025 10:30 AM EDT Office Visit [facility] [address] [place] [address] Geronimo Tran MD [address] [place] [address] documented as of this encounter Procedures Procedure [...] documented as of this encounter Care Teams Home Sales Consultant Relationship Specialty Start Date End Date Larry Bedolla MD [address] [place] [address] PCP - General 12/08/20 01/18/25 Monika Hernandez APRN [address] [place] [address] PCP - General 01/19/25 Sary Brannon APRN 1210 [facility] [address] [place] [address] Referring Physician Gastroenterology 01/07/25 documented as of this encounter
--- OUTSIDE RECORDS SUMMARY | 2025-03-08 08:38 | XMS_ITS | Encounter Summary ---
Author Organization Healthcare Address [address] [place] [address] Care Team Providers Care Valve Seater Operator Name Role Phone Larry Bedolla MD Primary Care Provider + [phone] Sary Brannon APRN Unavailable [phone] Monika Hernandez APRN Primary Care Provider [phone] Encounter Details Date Type Department Care Team (Late st Contact Info) Description 12/31/2024 Orders Only External Location [address] [place] [address] Monika Hernandez APRN [address] [place], [place] [id number] Social History Tobacco Use Types Packs/Day Years [...] EDT Appointment [facility] Radiology [address] [place] [address] 03/22/2025 9:00 AM EDT Clinical Support [facility] [address] [place] [address] 03/22/2025 10:30 AM EDT Office Visit [facility] [place] [address] [place] [address] Geronimo Tran MD [address] [place] [address] documented as of this encounter Procedures Procedure Name Priority Date/Time Associated Diagnosis Comments US OUTSIDE IMAGES 12/31/2024 7:33 AM EDT documented in this encounter Results * US OUTSIDE IMAGES (12/31/2024 7:33 AM EDT) Anatomical Region Laterality Modality Ultrasound 12/31/2024 7:33 AM EDT us Monika Hernandez VIDEO ENGINEER IMG US PROCEDURES Final Result documented in this encounter Visit Diagnoses Not on filedocumented in this encounter Additional Health Concerns Assessment Noted Time A fall risk assessment has been complete d for the patient 01/02/2022 1:17 PM EDT A Body Mass Index follow-up plan has been documented for the patient 11/13/2022 11:41 AM EDT documented as of this encounter Care Teams Valve Seater Operator Relationship Specialty Start Date End Date Larry Bedolla MD [address] [place] [address] PCP - General 12/08/20 01/18/25 Monika Hernandez APRN [address] [place] [address] PCP - General 01/19/25 Sary Brannon APRN 1210 [facility] [address] [place] [address] Referring Physician Gastroenterology 01/07/25 documented as of this encounter
--- OUTSIDE RECORDS SUMMARY | 2025-03-08 08:38 | XMS_ITS | Encounter Summary ---
Author Organization [facility] Address [address] [place] [address] Care Team Providers Care Senior Oracle Applications Developer Name Role Phone Sary Brannon LINING FINISHER Unavailable [phone] Monika Hernandez APRN Primary Care Provider + [phone] Reason for Visit * Reason Comments Appointment Confirmation and rem inders Encounter Details Date Type Department Care Team (Late st Contact Info) Description 02/17/2025 Telephone [facility] [address] [place] [address] Jessica Simms [place] [phone] Appointment (Confirmation and reminders) Social History Tobacco [...] EDT Appointment [facility] Radiology [address] [place] [address] 03/22/2025 9:00 AM EDT Clinical Support [facility] [place] [address] [facility] [address] [place] [address] 03/22/2025 10:30 AM EDT Office Visit [facility] [place] [address] [facility] [address] [place] [address] Geronimo Tran MD [address] [facility] [address] [place] [address] documented as of this encounter Visit Diagnoses Not on filedocumented in this encounter Additional Health Concerns Assessment Noted Time A fall risk assessment has been complete d for the patient 01/02/2022 1:17 PM EDT A Body Mass Index follow-up plan has been documented for the patient 11/13/2022 11:41 AM EDT documented as of this encounter Care Teams Senior Oracle Applications Developer Relationship Specialty Start Date End Date Monika Hernandez APRN [address] [place] [address] PCP - General 01/19/25 Sary Brannon APRN [address] [place] [address] [address] [place] [address] Referring Physician Gastroenterology 01/07/25 documented as of this encounter
--- OUTSIDE RECORDS SUMMARY | 2025-03-08 08:38 | XMS_ITS | Encounter Summary ---
Author Organization Healthcare Address [address] [place] [address] Care Team Providers Care Test Clerk Name Role Phone Larry Bedolla MD Primary Care Provider + [phone] Sary Brannon APRN Unavailable [phone] Monika Hernandez APRN Primary Care Provider + [phone] Encounter Details Date Type Department Care Team (Late st Contact Info) Description 11/30/2024 Orders Only External Location [address] [place] [address] Provider, External Social History Tobacco Use Types [...] EDT Appointment [facility] Radiology [address] [place] [address] 03/22/2025 9:00 AM EDT Clinical Support [facility] [address] [facility] [address] [place] [address] 03/22/2025 10:30 AM EDT Office Visit [facility] [address] [place] [address] Geronimo Tran MD [address] [place] [address] documented as of this encounter Procedures Procedure [...] documented as of this encounter Care Teams Test Clerk Relationship Specialty Start Date End Date Larry Bedolla MD [address] [place] [address] PCP - General 12/08/20 01/18/25 Monika Hernandez APRN [address] [place] [address] PCP - General 01/19/25 Sary Brannon APRN 1210 [facility] [address] [place] [address] Referring Physician Gastroenterology 01/07/25 documented as of this encounter
--- OUTSIDE RECORDS SUMMARY | 2025-03-08 08:38 | XMS_ITS | Encounter Summary ---
Author Organization [facility] Address [address] [place] [address] Care Team Providers Care Physician In Private Practice Name Role Phone Sary Brannon ÁNGEL Unavailable [phone] Monika Hernandez APRN Primary Care Provider [phone] Reason for Referral * Consultation (Routine) - Closed Specialty Diagnoses / Procedures Referred By Mayela may Referred To Contact Transplant Diagnoses End-stage liver disease (CMS/HCC) Edil Kiran MD [address] [address] Phone: tel: fax: [facility] [place] [address] [address] Phone: tel: fax: Referral ID Status Reason Start Date Expiration Date V isits Requested Visits Authorized [id number] Closed Specialty Services Required 01/19/2025 07/21/2026 1 1 Reason for Visit * Reason Comments Appointment scheduling Encounter Details Date Type Department Care Team ([facility] Contact Info) Description 01/19/2025 Telephone [facility] [place] [address] [address] [place] [address] Appointment (scheduling) Social History Tobacco Use Types [...] EDT Appointment [facility] A Radiology [address] [place] [address] 03/22/2025 9:00 AM EDT Clinical Support [facility] [place] [address] [facility] [address] [place] [address] 03/22/2025 10:30 AM EDT Office Visit [facility] [place] [address] [facility] [address] [place] [address] Geronimo Tran MD [address] [facility] [address] [place] [address] Scheduled Orders Name Type Priority Associated Diagnoses [...] Antibody IgG (02/22/2025 7:18 AM EDT) Pathologist [facility] Hepatitis A Antibody IgG Positive(A ) Negative 02/22/2025 8:44 AM EDT [facility] Blood Venous blood specimen / Unknown Venipuncture / Unknown 02/22/2025 7:18 AM EDT 02/22/2025 7:48 AM EDT Edil Kiran MD LAB BLOOD ORDERABLES Final Resul t Performing Organization Address City/[facility] Co de Phone Number [facility] [address] [place] [address] * HEPATITIS B SURFACE ANTIBODY, QUANTITATIVE (02/22/2025 7:18 AM EDT) Pathologist [facility] Hepatitis B Surface Antibody, Quantitative <8.00 NonReactiv e: <8, Grayzone: 8 - <12, Reactive: >= 12 mIU/mL 02/22/2025 8:44 AM EDT [facility] Comment: Nonreactive. Individual is considered not immune to HBV infection. Blood Venous blood specimen / Unknown Venipuncture / Unknown 02/22/2025 7:18 AM EDT 02/22/2025 7:48 AM EDT us Edil Kiran MD LAB BLOOD ORDERABLES Final Resul t Performing Organization Address City/[facility] Co de Phone Number [facility] [address] [place] [address] * Hepatitis B Surface Antigen (02/22/2025 7:18 AM EDT) Pathologist [facility] Hepatitis B Surf Antigen Negative Negative 02/22/2025 8:44 AM EDT [facility] Blood Venous blood specimen / Unknown Venipuncture / Unknown 02/22/2025 7:18 AM EDT 02/22/2025 7:48 AM EDT us Edil Kiran MD LAB BLOOD ORDERABLES Final Resul t Performing Organization Address [facility] Co de Phone Number [facility] [address] [place] [address] * Hepatitis C Antibody (02/22/2025 7:18 AM EDT) Hepatitis C Antibody Negative Negative 02/22/2025 8:29 AM EDT [facility] Blood Venous blood specimen / Unknown Venipuncture / Unknown 02/22/2025 7:18 AM EDT 02/22/2025 7:48 AM EDT Edil Kiran MD LAB BLOOD ORDERABLES Final Resul t Performing Organization Address [facility] Phone Number [facility] [address] [place] [address] * Nicotine Cotinine Metabolite (02/22/2025 7:18 AM EDT) Pathologist [facility] NICOTINE <5 <5 ng/mL 02/24/2025 2:3 4 PM EDT [facility] Cotinine <5 <5 ng/mL 02/24/2025 2:3 4 PM EDT [facility] Blood Venous blood specimen / Unknown Venipuncture / Unknown 02/22/2025 7:18 AM EDT 02/22/2025 7:46 AM EDT Narrative [facility] - 02/24/2025 2:34 PM EDT Testing performed by LC-MS/MS at the [facility] Special Chemistry/Toxicology Laboratory. This test was developed and its performance characteristics determined by [facility]. This assay has not been cleared by the FDA. The laboratory is regulated under CLIA as qualified to perform high-complexity testing. This test is used for clinical purposes. us Edil Kiran MD LAB BLOOD ORDERABLES Final Resul t Performing Organization Address [facility] Co de Phone Number [facility] [address] [place] [address] * (ABNORMAL) Protime-INR (02/22/2025 7:18 AM EDT) Prothrombin Time 18.7(H) 12.0 - 14.3 sec LAB COAGULATION METHOD 02/22/2025 8:04 AM EDT [facility] INR 1.6(H) 0.9 - 1.1 LAB COAGULATION METHOD 02/22/2025 8:04 AM EDT [facility] Blood Venous blood specimen / Unknown Venipuncture / Unknown 02/22/2025 7:18 AM EDT 02/22/2025 7:46 AM EDT Narrative [facility] - 02/22/2025 8:04 AM EDT OPTIMAL INR RANGES FOR PATIENT ON ORAL ANTICOAGULANT THERAPY Prevention of venous thromboembolism INR 2.0 to 3.0 In patients with heart disease: Atrial fibrillation INR 2.0 to 3.0 Valvular heart disease INR 2.0 to 3.0 Tissue heart valves INR 2.0 to 3.0 Mechanical prosthetic valves INR 2.5 to 3.5 Prevention of recurrent OK INR 2.5 to 3.5 Edil Kiran MD LAB BLOOD ORDERABLES Final Resul t Performing Organization Address [facility] Co de Phone Number [facility] [address] [place] [address] * (ABNORMAL) Comprehensive metabolic panel (02/22/2025 7:18 AM EDT) Glucose, Plasma 283(H) 74 - 99 mg/dL 02/22/2025 8:16 AM EDT [facility] BUN, Plasma 30(H) 8 - 23 mg/dL 02/22/2025 8:16 AM EDT [facility] Creatinine, Plasma 2.54(H) 0.60 - 1.10 mg/dL 02/22/2025 8:16 AM EDT [facility] BUN/Creatinine Ratio 12 02/22/2025 8:16 AM EDT [facility] Sodium, Plasma 137 136 - 145 mmol/L 02/22/2025 8:16 AM EDT [facility] Potassium, Plasma 4.3 3.6 - 4.9 mmol/L 02/22/2025 8:16 AM EDT [facility] Chloride, Plasma 105 97 - 107 mmol/L 02/22/2025 8:16 AM EDT [facility] CO2, Plasma 24 22 - 29 mmol/L 02/22/2025 8:16 AM EDT [facility] Anion Gap 8 6 - 16 mmol/L 02/22/2025 8:16 AM EDT [facility] Total Calcium, Plasma 8.6(L) 8.9 - 10.2 mg/dL 02/22/2025 8:16 AM EDT [facility] Total Protein 7.2 6.3 - 7.9 g/dL 02/22/2025 8:16 AM EDT [facility] Albumin, Plasma 2.9(L) 3.5 - 5.2 g/dL 02/22/2025 8:16 AM EDT [facility] AST, Plasma 37(H) 10 - 35 U/L 02/22/2025 8:16 AM EDT [facility] ALT, Plasma 15 10 - 35 U/L 02/22/2025 8:16 AM EDT [facility] Alkaline Phosphatase, Plasma 121 46 - 142 U/L 02/22/2025 8:16 AM EDT [facility] Total Bilirubin, Plasma 0.9 0.2 - 1.1 mg/dL 02/22/2025 8:16 AM EDT [facility] eGFRcr 20.9 mL/min/1.7 3m*2 02/22/2025 8:16 AM EDT [facility] Comment:Reported eGFRcr in m L/min/1.73m2 is based the CKD-EPI 2020 equation that does not use a race coefficient. Blood Venous blood specimen / Unknown Venipuncture / Unknown 02/22/2025 7:18 AM EDT 02/22/2025 7:47 AM EDT us Edil Kiran MD LAB BLOOD ORDERABLES Final Resul t [facility] [address] [place] [address] * (ABNORMAL) Hemogram (CBC) (02/22/2025 7:18 AM EDT) WBC Count 2.35(L) 3.70 - 10.30 10*3/uL LAB HEMATOLOGY METHOD 02/22/2025 9:33 AM EDT [facility] RBC Count 3.33(L) 3.90 - 5.20 10*6/uL LAB HEMATOLOGY METHOD 02/22/2025 9:33 AM EDT [facility] HGB 10.2(L) 11.2 - 15.7 g/dL LAB HEMATOLOGY METHOD 02/22/2025 9:33 AM EDT [facility] HCT 31.8(L) 34.0 - 45.0 % LAB HEMATOLOGY METHOD 02/22/2025 9:33 AM EDT [facility] Platelet Count 75(L) 155 - 369 10*3/uL LAB HEMATOLOGY METHOD 02/22/2025 9:33 AM EDT [facility] MCV 96 79 - 98 fL LAB HEMATOLOGY METHOD 02/22/2025 9:33 AM EDT [facility] MCH 30.6 26.0 - 32.0 pg LAB HEMATOLOGY METHOD 02/22/2025 9:33 AM EDT [facility] MCHC 32.1 30.7 - 35.5 g/dL LAB HEMATOLOGY METHOD 02/22/2025 9:33 AM EDT [facility] RDW 15.7(H) 11.5 - 14.5 % LAB HEMATOLOGY METHOD 02/22/2025 9:33 AM EDT [facility] MPV 10.5 8.8 - 12.5 fL LAB HEMATOLOGY METHOD 02/22/2025 9:33 AM EDT [facility] nRBC 0.0 <=0.0 per 100 WBCs LAB HEMATOLOGY METHOD 02/22/2025 9:33 AM EDT [facility] Blood Venous blood specimen / Unknown Venipuncture / Unknown 02/22/2025 7:18 AM EDT 02/22/2025 7:41 AM EDT us Edil Kiran MD LAB BLOOD ORDERABLES Final Resul t [facility] [address] [place] [address] * Alpha fetoprotein, serum (02/22/2025 7:18 AM EDT) Alpha Fetoprotein, Serum <2.3 <10.0 ng/mL 02/22/2025 8:25 AM EDT [facility] Blood Venous blood specimen / Unknown Venipuncture / Unknown 02/22/2025 7:18 AM EDT 02/22/2025 7:48 AM EDT Narrative [facility] - 02/22/2025 8:25 AM EDT Performed by [employer] electrochemiluminescent immunoassay which is traceable to the [facility] AFP IRP WHO Reference standard 72/255. Results obtained with different test methods or kits cannot be used interchangeably. Edil Kiran MD LAB BLOOD ORDERABLES Final Resul t Performing Organization Address [facility] Co de Phone Number [facility] [address] [place] [address] * ABO/Rh (02/22/2025 7:18 AM EDT) ABO/Rh O Positive 02/22/2025 7:14 AM EDT [facility] Blood Venous blood specimen / Unknown Venipuncture / Unknown 02/22/2025 7:18 AM EDT 02/22/2025 7:46 AM EDT Edil Kiran MD LAB BLOOD BANK TEST ORDERABLES F inal Result Performing Organization Address [facility] Co de Phone Number BLOOD BANK [address] [place] [address] documented in this encounter Visit Diagnoses Diagnosis [...] documented as of this encounter Care Teams Physician In Private Practice Relationship Specialty Start Date End Date Monika Hernandez APRN [address] [facility] [place] [address] PCP - General 01/19/25 Sary Brannon APRN [address] [facility] [address] [place], [place] [address] Referring Physician Gastroenterology 01/07/25 documented as of this encounter
--- OUTSIDE RECORDS SUMMARY | 2025-03-08 08:38 | XMS_ITS | Encounter Summary ---
Author Organization Healthcare Address [address] [place] [address] Care Team Providers Care Marshmallow Machine Operator Name Role Phone Larry Bedolla MD Primary Care Provider + [phone] Sary Brannon APRN Unavailable [phone] Monika Hernandez APRN Primary Care Provider + [phone] Encounter Details Date Type Department Care Team (Late st Contact Info) Description 12/06/2024 Orders Only External Location [address] [place] [address] Provider, External Social History Tobacco Use Types [...] Appointment [facility] A Radiology [address] [place] [address] 03/22/2025 9:00 AM EDT Clinical Support [facility] [address] [facility] [address] [place] [address] 03/22/2025 10:30 AM EDT Office Visit [facility] [address] [place] [address] Geronimo Tran MD [address] [place] [address] documented as of this encounter Procedures Procedure [...] documented as of this encounter Care Teams Marshmallow Machine Operator Relationship Specialty Start Date End Date Larry Bedolla MD [address] [place] [address] PCP - General 12/08/20 01/18/25 Monika Hernandez APRN [address] [place] [address] PCP - General 01/19/25 Sary Brannon APRN [address] [facility] [address] [place] [address] Referring Physician Gastroenterology 01/07/25 documented as of this encounter
--- OUTSIDE RECORDS SUMMARY | 2025-03-08 08:38 | XMS_ITS | Encounter Summary ---
Author Organization Healthcare Address [address] [place] [address] Care Team Providers Care Cloth Cutter Name Role Phone Larry Bedolla MD Primary Care Provider + [phone] Sary Brannon APRN Unavailable [phone] Monika Hernandez APRN Primary Care Provider [phone] Encounter Details Date Type Department Care Team (Late st Contact Info) Description 01/21/2022 [facility] [address] [place] [address] Larry Bedolla MD [address] [place], [place] [id number] Central stenosis of spinal canal (Primary Dx) [...] Appointment P[facility] A Radiology [address] [place] [address] 03/22/2025 9:00 AM EDT Clinical Support [facility] [place] [address] [place] [address] 03/22/2025 10:30 AM EDT Office Visit [facility] [address] [place] [address] Geronimo Tran MD [address] [place] [address] documented as of this encounter Visit Diagnoses Diagnosis Central stenosis of spinal canal- Primary documented in this encounter Additional Health Concerns Assessment Noted Time A fall risk assessment has been complete d for the patient 01/02/2022 1:17 PM EDT documented as of this encounter Care Teams Cloth Cutter Relationship Specialty Start Date End Date Larry Bedolla MD [address] [place] [address] PCP - General 12/08/20 01/18/25 Monika Hernandez APRN [address] [place] [address] PCP - General 01/19/25 Sary Brannon APRN 1210 [facility] [address] [place] [address] Referring Physician Gastroenterology 01/07/25 documented as of this encounter
--- OUTSIDE RECORDS SUMMARY | 2025-03-08 08:38 | XMS_ITS | Encounter Summary ---
Author Organization Healthcare Address [address] [place] [address] Care Team Providers Care Hand Mounter Name Role Phone Larry Bedolla MD Primary Care Provider + [phone] Sary Brannon APRN Unavailable [phone] Monika Hernandez APRN Primary Care Provider + [phone] Encounter Details Date Type Department Care Team (Late st Contact Info) Description 12/02/2024 Orders Only External Location [address] [place] [address] Provider, External Social History Tobacco Use Types [...] EDT Appointment P[facility] A Radiology [address] [place] [address] 03/22/2025 9:00 AM EDT Clinical Support [facility] [address] [facility] [address] [place] [address] 03/22/2025 10:30 AM EDT Office Visit [facility] [address] [place] [address] Geronimo Tran MD [address] [place] [address] documented as of this encounter Procedures Procedure [...] documented as of this encounter Care Teams Hand Mounter Relationship Specialty Start Date End Date Larry Bedolla MD [address] [place] [address] PCP - General 12/08/20 01/18/25 Monika Hernandez APRN [address] [place] [address] PCP - General 01/19/25 Sary Brannon APRN 1210 [facility] [address] [place] [address] Referring Physician Gastroenterology 01/07/25 documented as of this encounter
--- OUTSIDE RECORDS SUMMARY | 2025-03-08 08:38 | XMS_ITS | Encounter Summary ---
Author Organization Healthcare Address [address] [place] [address] Care Team Providers Care Process Control Programmer Name Role Phone Larry Bedolla MD Primary Care Provider + [phone] Sary Brannon APRN Unavailable [phone] Monika Hernandez APRN Primary Care Provider + [phone] Encounter Details Date Type Department Care Team (Late st Contact Info) Description 10/26/2024 Orders Only External Location [address] [place] [address] Provider, External Social History Tobacco Use Types [...] EDT Appointment [facility] Radiology [address] [place] [address] 03/22/2025 9:00 AM EDT Clinical Support [facility] [address] [facility] [address] [place] [address] 03/22/2025 10:30 AM EDT Office Visit [facility] [address] [place] [address] Geronimo Tran MD [address] [place] [address] documented as of this encounter Procedures Procedure [...] as of this encounter Care Teams Process Control Programmer Relationship Specialty Start Date End Date Larry Bedolla MD [address] [place] [address] PCP - General 12/08/20 01/18/25 Monika Hernandez APRN [address] [place] [address] PCP - General 01/19/25 Sary Brannon APRN 1210 [facility] [address] [place] [address] Referring Physician Gastroenterology 01/07/25 documented as of this encounter
--- OUTSIDE RECORDS SUMMARY | 2025-03-08 08:38 | XMS_ITS | Encounter Summary ---
Author Organization Healthcare Address [address] [place] [address] Care Team Providers Care Sausage Smoker Name Role Phone Larry Bedolla MD Primary Care Provider + [phone] Sary Brannon APRN Unavailable [phone] Monika Hernandez APRN Primary Care Provider + [phone] Encounter Details Date Type Department Care Team (Late st Contact Info) Description 12/04/2024 Orders Only External Location [address] [place] [address] Provider, External Social History Tobacco Use Types [...] EDT Appointment [facility] Radiology [address] [place] [address] 03/22/2025 9:00 AM EDT Clinical Support [facility] [address] [facility] [address] [place] [address] 03/22/2025 10:30 AM EDT Office Visit [facility] [address] [place] [address] Geronimo Tran MD [address] [place] [address] documented as of this encounter Procedures Procedure [...] documented as of this encounter Care Teams Sausage Smoker Relationship Specialty Start Date End Date Larry Bedolla MD [address] [place] [address] PCP - General 12/08/20 01/18/25 Monika Hernandez APRN [address] [place] [address] PCP - General 01/19/25 Sary Brannon APRN 1210 [facility] [address] [place] [address] Referring Physician Gastroenterology 01/07/25 documented as of this encounter
--- OUTSIDE RECORDS SUMMARY | 2025-03-08 08:38 | XMS_ITS | Encounter Summary ---
Author Organization Healthcare Address [address] [place] [address] Care Team Providers Care Export Freight Clerk Name Role Phone Larry Bedolla MD Primary Care Provider + [phone] Sary Brannon APRN Unavailable [phone] Monika Hernandez APRN Primary Care Provider [phone] Reason for Referral * Consultation (Routine) - Closed Specialty Diagnoses / Procedures Referred By Mayela may Referred To Contact Hepatology Diagnoses Bilious vomiting with nausea Anticentromere antibodies present Thrombopenia (CMS/HCC) Stage 3 hepatic fibrosis Raul Kincaid PA [address] [place] [address] Phone: tel: fax: Referral ID Status Reason Start Date Expiration Date V isits Requested Visits Authorized [id number] Closed Specialty Services Required 09/27/2021 03/29/2023 1 1 Encounter Details Date Type Department Care Team (Late st Contact Info) Description 09/27/2021 [facility] [address] [place] [address] Raul Kincaid PA [address] [place] [address] Bilious vomiting with nausea (Primary Dx); [...] EDT Appointment [facility] A Radiology [address] [place] [address] 03/22/2025 9:00 AM EDT Clinical Support [facility] [place] [address] [facility] [address] [place] [address] 03/22/2025 10:30 AM EDT Office Visit [facility] [place] [address] [facility] [address] [place] [address] Geronimo Tran MD [address] [facility] [address] [place] [address] Scheduled Referrals Name Type Priority Associated Diagnoses [...] fibrosis documented in this encounter Care Teams Export Freight Clerk Relationship Specialty Start Date End Date Larry Bedolla MD [address] [place] [address] PCP - General 12/08/20 01/18/25 Monika Hernandez APRN [address] [place] [address] PCP - General 01/19/25 Sary Brannon APRN [address] [place] [address] [address] [place] [address] Referring Physician Gastroenterology 01/07/25 documented as of this encounter
--- OUTSIDE RECORDS SUMMARY | 2025-03-08 08:38 | XMS_ITS | Encounter Summary ---
Author Organization Healthcare Address [address] [place] [address] Care Team Providers Care Resin Coater Name Role Phone Larry Bedolla MD Primary Care Provider + [phone] Sary Brannon APRN Unavailable [phone] Monika Hernandez APRN Primary Care Provider + [phone] Encounter Details Date Type Department Care Team (Late st Contact Info) Description 12/10/2024 Orders Only External Location [address] [place] [address] Provider, External Social History Tobacco Use Types [...] EDT Appointment [facility] Radiology [address] [place] [address] 03/22/2025 9:00 AM EDT Clinical Support [facility] [address] [facility] [address] [place] [address] 03/22/2025 10:30 AM EDT Office Visit [facility] [address] [place] [address] Geronimo Tran MD [address] [place] [address] documented as of this encounter Procedures Procedure [...] documented as of this encounter Care Teams Resin Coater Relationship Specialty Start Date End Date Larry Bedolla MD [address] [place] [address] PCP - General 12/08/20 01/18/25 Monika Hernandez APRN [address] [place] [address] PCP - General 01/19/25 Sary Brannon APRN 1210 [facility] [address] [place] [address] Referring Physician Gastroenterology 01/07/25 documented as of this encounter
--- OUTSIDE RECORDS SUMMARY | 2025-03-08 08:38 | XMS_ITS | Encounter Summary ---
Author Organization Healthcare Address [address] [place] [address] Care Team Providers Care Javascript Engineer Name Role Phone Larry Bedolla MD Primary Care Provider + [phone] Sary Brannon APRN Unavailable [phone] Monika Hernandez APRN Primary Care Provider [phone] Encounter Details Date Type Department Care Team (Late st Contact Info) Description 04/30/2018 Orders Only External Location [address] [place] [address] Provider, External Social History Tobacco Use Types [...] EDT Appointment [facility] Radiology [address] [place] [address] 03/22/2025 9:00 AM EDT Clinical Support [facility] [address] [facility] [address] [place] [address] 03/22/2025 10:30 AM EDT Office Visit [facility] [place] [address] [facility] [address] [place] [address] Geronimo Tran MD [address] [facility] [address] [place] [address] documented as of this encounter Procedures Procedure [...] on filedocumented in this encounter Care Teams Javascript Engineer Relationship Specialty Start Date End Date Larry Bedolla MD [address] [place] [address] PCP - General 12/08/20 01/18/25 Monika Hernandez APRN [address] [place] [address] PCP - General 01/19/25 Sary Brannon APRN [address] [place] [address] [address] [place] [address] Referring Physician Gastroenterology 01/07/25 documented as of this encounter
--- OUTSIDE RECORDS SUMMARY | 2025-03-08 08:38 | XMS_ITS | Encounter Summary ---
Author Organization Healthcare Address [address] [place] [address] Care Team Providers Care Geriatric Social Work Professor Name Role Phone Larry Bedolla MD Primary Care Provider + [phone] Sary Brannon APRN Unavailable [phone] Monika Hernandez APRN Primary Care Provider [phone] Encounter Details Date Type Department Care Team (Late st Contact Info) Description 04/02/2017 Orders Only External Location [address] [place] [address] Provider, External Social History Tobacco Use Types [...] EDT Appointment [facility] [address] [place] [address] 03/22/2025 9:00 AM EDT Clinical Support [facility] [address] [facility] [address] [place] [address] 03/22/2025 10:30 AM EDT Office Visit [facility] [place] [address] [facility] [address] [place] [address] Geronimo Tran MD [address] [facility] [address] [place] [address] documented as of this encounter Procedures Procedure [...] on filedocumented in this encounter Care Teams Geriatric Social Work Professor Relationship Specialty Start Date End Date Larry Bedolla MD [address] [place] [address] PCP - General 12/08/20 01/18/25 Monika Hernandez APRN [address] [place] [address] PCP - General 01/19/25 Sary Brannon APRN [address] [place] [address] [address] [place] [address] Referring Physician Gastroenterology 01/07/25 documented as of this encounter
--- OUTSIDE RECORDS SUMMARY | 2025-03-08 08:38 | XMS_ITS | Encounter Summary ---
Author Organization Healthcare Address [address] [place] [address] Care Team Providers Care Disease Education Specialist Name Role Phone Larry Bedolla MD Primary Care Provider + [phone] Sary Brannon APRN Unavailable [phone] Monika Hernandez APRN Primary Care Provider + [phone] Encounter Details Date Type Department Care Team (Late st Contact Info) Description 12/07/2024 Orders Only External Location [address] [place] [address] Provider, External Social History Tobacco Use Types [...] EDT Appointment [facility] [address] [place] [address] 03/22/2025 9:00 AM EDT Clinical Support [facility] [address] [facility] [address] [place] [address] 03/22/2025 10:30 AM EDT Office Visit [facility] [address] [place] [address] Geronimo Tran MD [address] [place] [address] documented as of this encounter Procedures Procedure [...] documented as of this encounter Care Teams Disease Education Specialist Relationship Specialty Start Date End Date Larry Bedolla MD [address] [place] [address] PCP - General 12/08/20 01/18/25 Monika Hernandez APRN [address] [place] [address] PCP - General 01/19/25 Sary Brannon APRN [address] [facility] [address] [place] [address] Referring Physician Gastroenterology 01/07/25 documented as of this encounter
--- OUTSIDE RECORDS SUMMARY | 2025-03-08 08:39 | XMS_ITS | Encounter Summary ---
Author Organization Healthcare Address [address] [place] [address] Care Team Providers Care Superintendent Tests Name Role Phone Larry Bedolla MD Primary Care Provider + [phone] Sary Brannon APRN Unavailable [phone] Monika Hernandez APRN Primary Care Provider [phone] Encounter Details Date Type Department Care Team (Late st Contact Info) Description 11/30/2024 Orders Only External Location [address] [place] [address] Provider, External Social History Tobacco Use Types [...] EDT Appointment [facility] [address] [place] [address] 03/22/2025 9:00 AM EDT Clinical Support [facility] [address] [facility] [address] [place] [address] 03/22/2025 10:30 AM EDT Office Visit [facility] [address] [place] [address] Geronimo Tran MD [address] [place] [address] documented as of this encounter Procedures Procedure [...] documented as of this encounter Care Teams Superintendent Tests Relationship Specialty Start Date End Date Larry Bedolla MD [address] [place] [address] PCP - General 12/08/20 01/18/25 Monika Hernandez APRN [address] [place] [address] PCP - General 01/19/25 Sary Brannon APRN [address] [place] [address] Referring Physician Gastroenterology 01/07/25 documented as of this encounter
--- OUTSIDE RECORDS SUMMARY | 2025-03-08 08:39 | XMS_ITS | Encounter Summary ---
Author Organization Healthcare Address [address] [place] [address] Care Team Providers Care Ragman Name Role Phone Larry Bedolla MD Primary Care Provider + [phone] Sary Brannon APRN Unavailable [phone] Monika Hernandez APRN Primary Care Provider + [phone] Encounter Details Date Type Department Care Team (Late st Contact Info) Description 11/29/2024 Orders Only External Location [address] [place] [address] Provider, External Social History Tobacco Use Types [...] EDT Appointment [facility] [address] [place] [address] 03/22/2025 9:00 AM EDT Clinical Support [facility] [address] [facility] [address] [place] [address] 03/22/2025 10:30 AM EDT Office Visit [facility] [address] [place] [address] Geronimo Tran MD [address] [place] [address] documented as of this encounter Procedures Procedure [...] documented as of this encounter Care Teams Ragman Relationship Specialty Start Date End Date Larry Bedolla MD [address] [place] [address] PCP - General 12/08/20 01/18/25 Monika Hernandez APRN [address] [place] [address] PCP - General 01/19/25 Sary Brannon APRN [address] [facility] [address] [place] [address] Referring Physician Gastroenterology 01/07/25 documented as of this encounter
--- OUTSIDE RECORDS SUMMARY | 2025-03-08 08:39 | XMS_ITS ---
Author Organization [facility] Address [address] [place] [address] Care Team Providers Care Engineering Technician Parking Name Role Phone Sary Brannon APRN Unavailable [phone] Monika Hernandez APRN Primary Care Provider [phone] Transplant Episode Liver Candidate [facility] ([place], [place]) - JOSÉ LUIS Referred on 01/07/2025 Marked as Active on 01/07/2025 Liver CoordinatorMoraima Centeno RN Fax: N/A Email: N/A Scores Score Value Updated Expires Exceptions/Saloni sons CPRA Not available MELD (Calc) 22 02/22/2025 Care Team Name Role Phone Fax Email Moraima Centeno RN Liver Coordinator [phone] N/A N/A Sary Brannon APRN Referring Physician [phone] N/A [facility] Education Coordinator [phone] N/A N/A Edil Kiran MD Surgeon [phone] N/A Events Pre-Transplant Referred: 01/07/2025 Committee: 02/28/2025 Appointments (02/05/2025 - 04/08/2025) When With Visit Type Description 02/22/2025 Transplant - Surgeon, T Initial Clinic Evaluation 02/22/2025 Transplant - Jose [facility] LAB End-stage liver disease (CMS/HCC) 02/22/2025 Transplant - Theodora Calvo Initial Clinic Evaluation End-stage liver disease (CMS/HCC) (Primary Dx); 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
--- OUTSIDE RECORDS SUMMARY | 2025-03-08 08:39 | XMS_ITS | Encounter Summary ---
Author Organization [facility] Address [address] [place] [address] Care Team Providers Care Cook Barbecue Name Role Phone Larry Bedolla MD Primary Care Provider + [phone] Sary Brannon FUR TINTER Unavailable [phone] Reason for Referral * Transplant (Routine) - Authorized Specialty Diagnoses / Procedures Referred By Mayela may Referred To Contact Transplant Diagnoses End-stage liver disease (CMS/HCC) Sary Brannon APRN [address] [facility] [address] [place] [address] Phone: tel: fax: [facility] [address] [address] Phone: tel: fax: Referral ID Status Reason Start Date Expiration Date Visits Requested Visits Authorized [id number] Authorized Specialty Services Required 01/07/2025 07/09/2026 [id number] Reason for Visit * Reason Comments Referral - Liver Txp Encounter Details Date Type Department Care Team (Late Contact Info) Description 01/07/2025 Telephone [facility] [place] [id number] [address] Kasey Dye [place] [phone] Referral - Liver Txp Social History Tobacco [...] EDT Appointment [facility] [address] [place] [address] 03/22/2025 9:00 AM EDT Clinical Support [facility] [address] [facility] [address] [place] [address] 03/22/2025 10:30 AM EDT Office Visit [facility] [address] [facility] [address] [place] [address] Geronimo Tran MD [address] [facility] [address] [place] [address] Scheduled Referrals Name Type Priority Associated Diagnoses [...] Venous blood specimen / Unknown 01/03/2025 Result [facility] Provider LAB BLOOD ORDERABLES Afsaneh l Result * Creatinine, Plasma (01/03/2025) External Creatinine Blood 3.00 mg/dL Blood Venous blood specimen / Unknown 01/03/2025 Result [facility] Provider LAB BLOOD ORDERABLES Afsaneh l Result * Albumin, Plasma (01/03/2025) External Albumin 3.6 g/dL Blood Venous blood specimen / Unknown 01/03/2025 Result [facility] Provider LAB BLOOD ORDERABLES Afsaneh l Result * Albumin, Plasma (12/14/2024) External Albumin 3.2 g/dL Blood Venous blood specimen / Unknown 12/14/2024 Result [facility] Provider LAB BLOOD ORDERABLES Afsaneh l Result * Total Bilirubin, Plasma (12/14/2024) External Bilirubin Total 0.9 mg/dL Blood Venous blood specimen / Unknown 12/14/2024 Result [facility] Provider LAB BLOOD ORDERABLES Afsaneh l Result * Creatinine, Plasma (12/14/2024) External Creatinine Blood 2.22 mg/dL Blood Venous blood specimen / Unknown 12/14/2024 Result [facility] Provider LAB BLOOD ORDERABLES Afsaneh l Result * Sodium, Plasma (12/14/2024) External Sodium 145 mmol/L Blood Venous blood specimen / Unknown 12/14/2024 Result [facility] Provider LAB BLOOD ORDERABLES Afsaneh l Result * Prothrombin Time/INR (11/30/2024) External Prothrombin Time (PT) 12.9 External INR - Internormal Ratio 1.17 Blood Venous blood specimen / Unknown 11/30/2024 Result [facility] Provider LAB BLOOD ORDERABLES Afsaneh l Result [...] documented as of this encounter Care Teams Cook Barbecue Relationship Specialty Start Date End Date Larry Bedolla MD [address] [facility] [place] [address] PCP - General 12/08/20 01/18/25 Sary Brannon APRN [address] [place] [address] Referring Physician Gastroenterology 01/07/25 documented as of this encounter
--- OUTSIDE RECORDS SUMMARY | 2025-03-08 08:39 | XMS_ITS | Clinical Summary ---
Author Organization Healthcare Address [address] [place] [address] Care Team Providers Care Sql Dba Name Role Phone Sary Brannon FLORAL MERCHANDISER Unavailable [phone] Monika Hernandez APRN Primary Care Provider [phone] Allergies No known active allergies Medications bisoprolol [...] 3 INJECTIONS DAILY 11/11/19 Active HYDROcodone-acetam inophen (Kenly) 10-325 MG tablet 10/24/19 Active spironolactone (Aldactone) 25 MG tablet Take 0.5 tablets by mouth daily. 10/03/19 Active furosemide (Lasix) 40 MG tablet Take by mouth 2 (two) times a day. 10/03/19 Active Insulin Lispro (HUMALOG IJ) Inject as directed. 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); Portal hypertension (CMS/HCC); Other ascites; GERMÁN (acute kidney injury) (CMS/HCC) 02/22/2025 Travel 02/17/2025 Telephone [facility] [address] [address] Jessica Simms Appointment (Confirmation and reminders) 01/19/2025 Telephone [facility] [place] [address] [address] Jessica Simms Appointment (scheduling) 01/07/2025 Telephone [facility] [address] [address] Kasey Dye Referral - Liver Txp 01/03/2025 Community Orders Community Practice [address] [place] [address] Sary Brannon, FLORAL MERCHANDISER 12/31/2024 Orders Only External Location [address] [place] [address] Monika Hernandez, FLORAL MERCHANDISER 12/10/2024 Orders Only External Location [address] [place] [address] Provider, External 12/10/2024 Orders Only External Location [address] [place] [address] Provider, External 12/09/2024 Orders Only External Location [address] [place] [address] Provider, External 12/07/2024 Orders Only External Location [address] [place] [address] Provider, External 12/06/2024 Orders Only External Location [address] [place] [address] Provider, External from Last 3 Months Immunizations [...] Appointment [facility] [address] [place] [address] 03/22/2025 9:00 AM EDT Clinical Support [facility] [address] [place] [address] 03/22/2025 10:30 AM EDT Office Visit [facility] [place] [address] [place] [address] Geronimo Tran MD [address] [place] [address] Health Maintenance Due Date Last Done Comments [facility]-HIV Screening 1960 [facility]-Medicare Annual Wellness (AWV) 1960 [...] 06/04/2022 01/02/2022, 11/21/2021 [facility]-Depression Screening 01/02/2023 01/02/2022 [id number] Vaccine ( season) 2024 05/13/2021, 04/15/2021, 11/08/2020 [...] OUTSIDE IMAGES 12/06/2024 7:3 1 AM EDT HEMOGLOBIN A1C Routine 01/24/2016 1:47 PM EDT from Last 3 Months or Most Recently Relevant to Health Maintenance Results * HEPATITIS B SURFACE ANTIBODY, QUANTITATIVE (02/22/2025 7:18 AM EDT) Hepatitis B Surface Antibody, Quantitative <8.00 NonReactiv e: <8, Grayzone: 8 - <12, Reactive: >= 12 mIU/mL 02/22/2025 8:44 AM EDT [facility] Comment: Nonreactive. Individual is considered not immune to HBV infection. Blood Venous blood specimen / Unknown Venipuncture / Unknown 02/22/2025 7:18 AM EDT 02/22/2025 7:48 AM EDT us Edil Kiran MD LAB BLOOD ORDERABLES Final Resul t [facility] [address] [place] [address] * Alpha fetoprotein, serum (02/22/2025 7:18 AM EDT) Alpha Fetoprotein, Serum <2.3 <10.0 ng/mL 02/22/2025 8:25 AM EDT [facility] Blood Venous blood specimen / Unknown Venipuncture / Unknown 02/22/2025 7:18 AM EDT 02/22/2025 7:48 AM EDT Narrative [facility] - 02/22/2025 8:25 AM EDT Performed by Stone electrochemiluminescent immunoassay which is traceable to the 1st AFP IRP WHO Reference standard 72/255. Results obtained with different test methods or kits cannot be used interchangeably. us Edil Kiran MD LAB BLOOD ORDERABLES Final Resul t Performing Organization Address City/[facility]/[place] [address] * (ABNORMAL) Hepatitis A Antibody IgG (02/22/2025 7:18 AM EDT) Hepatitis A Antibody IgG Positive(A ) Negative 02/22/2025 8:44 AM EDT [facility] Blood Venous blood specimen / Unknown Venipuncture / Unknown 02/22/2025 7:18 AM EDT 02/22/2025 7:48 AM EDT us Edil Kiran MD LAB [place] [address] * Hepatitis C Antibody (02/22/2025 7:18 AM EDT) Hepatitis C Antibody Negative Negative 02/22/2025 8:29 AM EDT [facility] Blood Venous blood specimen / Unknown Venipuncture / Unknown 02/22/2025 7:18 AM EDT 02/22/2025 7:48 AM EDT us Edil Kiran MD LAB BLOOD ORDERABLES Final Resul t Performing Organization Address [facility] Co de Phone Number [facility] [address] [place] [address] * Nicotine Cotinine Metabolite (02/22/2025 7:18 AM EDT) NICOTINE <5 <5 ng/mL 02/24/2025 2:3 4 PM EDT [facility] Cotinine <5 <5 ng/mL 02/24/2025 2:3 4 PM EDT [facility] Blood Venous blood specimen / Unknown Venipuncture / Unknown 02/22/2025 7:18 AM EDT 02/22/2025 7:46 AM EDT Narrative [facility] - 02/24/2025 2:34 PM EDT Testing performed by LC-MS/MS at the [facility] Special Chemistry/Toxicology Laboratory. This test was developed and its performance characteristics determined by [facility]. This assay has not been cleared by the FDA. The laboratory is regulated under CLIA as qualified to perform high-complexity testing. This test is used for clinical purposes. Edil Kiran MD LAB BLOOD ORDERABLES Final Resul t Performing Organization Address [facility] Co de Phone Number [facility] [address] [place] [address] * ABO/Rh (02/22/2025 7:18 AM EDT) ABO/Rh O Positive 02/22/2025 7:14 AM EDT [facility] Blood Venous blood specimen / Unknown Venipuncture / Unknown 02/22/2025 7:18 AM EDT 02/22/2025 7:46 AM EDT Edil Kiran MD LAB BLOOD BANK TEST ORDERABLES F inal Result Performing Organization Address [facility] Co de Phone Number BLOOD BANK [address] [place] [address], * Hepatitis B Surface Antigen (02/22/2025 7:18 AM EDT) Hepatitis B Surf Antigen Negative Negative 02/22/2025 8:44 AM EDT [facility] Blood Venous blood specimen / Unknown Venipuncture / Unknown 02/22/2025 7:18 AM EDT 02/22/2025 7:48 AM EDT Edil Kiran MD LAB BLOOD ORDERABLES Final Resul t Performing Organization Address [facility]/ZIP Co de Phone Number [facility] [address] [place] [address] * (ABNORMAL) Protime-INR (02/22/2025 7:18 AM EDT) Prothrombin Time 18.7(H) 12.0 - 14.3 sec LAB COAGULATION METHOD 02/22/2025 8:04 AM EDT [facility] INR 1.6(H) 0.9 - 1.1 LAB COAGULATION METHOD 02/22/2025 8:04 AM EDT [facility] Blood Venous blood specimen / Unknown Venipuncture / Unknown 02/22/2025 7:18 AM EDT 02/22/2025 7:46 AM EDT Narrative [facility] - 02/22/2025 8:04 AM EDT OPTIMAL INR RANGES FOR PATIENT ON ORAL ANTICOAGULANT THERAPY Prevention of venous thromboembolism INR 2.0 to 3.0 In patients with heart disease: Atrial fibrillation INR 2.0 to 3.0 Valvular heart disease INR 2.0 to 3.0 Tissue heart valves INR 2.0 to 3.0 Mechanical prosthetic valves INR 2.5 to 3.5 Prevention of recurrent NH INR 2.5 to 3.5 Edil Kiran MD LAB BLOOD ORDERABLES Final Resul t Performing Organization Address City/[facility]/ZIP Co de Phone Number [facility] [address] [place] [address] * (ABNORMAL) Hemogram (CBC) (02/22/2025 7:18 AM EDT) WBC Count 2.35(L) 3.70 - 10.30 10*3/uL LAB HEMATOLOGY METHOD 02/22/2025 9:33 AM EDT [facility] RBC Count 3.33(L) 3.90 - 5.20 10*6/uL LAB HEMATOLOGY METHOD 02/22/2025 9:33 AM EDT [facility] HGB 10.2(L) 11.2 - 15.7 g/dL LAB HEMATOLOGY METHOD 02/22/2025 9:33 AM EDT [facility] HCT 31.8(L) 34.0 - 45.0 % LAB HEMATOLOGY METHOD 02/22/2025 9:33 AM EDT [facility] Platelet Count 75(L) 155 - 369 10*3/uL LAB HEMATOLOGY METHOD 02/22/2025 9:33 AM EDT [facility] MCV 96 79 - 98 fL LAB HEMATOLOGY METHOD 02/22/2025 9:33 AM EDT [facility] MCH 30.6 26.0 - 32.0 pg LAB HEMATOLOGY METHOD 02/22/2025 9:33 AM EDT [facility] MCHC 32.1 30.7 - 35.5 g/dL LAB HEMATOLOGY METHOD 02/22/2025 9:33 AM EDT [facility] RDW 15.7(H) 11.5 - 14.5 % LAB HEMATOLOGY METHOD 02/22/2025 9:33 AM EDT [facility] MPV 10.5 8.8 - 12.5 fL LAB HEMATOLOGY METHOD 02/22/2025 9:33 AM EDT [facility] nRBC 0.0 <=0.0 per 100 WBCs LAB HEMATOLOGY METHOD 02/22/2025 9:33 AM EDT [facility] Blood Venous blood specimen / Unknown Venipuncture / Unknown 02/22/2025 7:18 AM EDT 02/22/2025 7:41 AM EDT us Edil Kiran MD LAB BLOOD ORDERABLES Final Resul t [facility] [address] [place] [address] * (ABNORMAL) Comprehensive metabolic panel (02/22/2025 7:18 AM EDT) Glucose, Plasma 283(H) 74 - 99 mg/dL 02/22/2025 8:16 AM EDT [facility] BUN, Plasma 30(H) 8 - 23 mg/dL 02/22/2025 8:16 AM EDT [facility] Creatinine, Plasma 2.54(H) 0.60 - 1.10 mg/dL 02/22/2025 8:16 AM EDT [facility] BUN/Creatinine Ratio 12 02/22/2025 8:16 AM EDT [facility] Sodium, Plasma 137 136 - 145 mmol/L 02/22/2025 8:16 AM EDT [facility] Potassium, Plasma 4.3 3.6 - 4.9 mmol/L 02/22/2025 8:16 AM EDT [facility] Chloride, Plasma 105 97 - 107 mmol/L 02/22/2025 8:16 AM EDT [facility] CO2, Plasma 24 22 - 29 mmol/L 02/22/2025 8:16 AM EDT [facility] Anion Gap 8 6 - 16 mmol/L 02/22/2025 8:16 AM EDT [facility] Total Calcium, Plasma 8.6(L) 8.9 - 10.2 mg/dL 02/22/2025 8:16 AM EDT [facility] Total Protein 7.2 6.3 - 7.9 g/dL 02/22/2025 8:16 AM EDT [facility] Albumin, Plasma 2.9(L) 3.5 - 5.2 g/dL 02/22/2025 8:16 AM EDT [facility] AST, Plasma 37(H) 10 - 35 U/L 02/22/2025 8:16 AM EDT [facility] ALT, Plasma 15 10 - 35 U/L 02/22/2025 8:16 AM EDT [facility] Alkaline Phosphatase, Plasma 121 46 - 142 U/L 02/22/2025 8:16 AM EDT [facility] Total Bilirubin, Plasma 0.9 0.2 - 1.1 mg/dL 02/22/2025 8:16 AM EDT [facility] eGFRcr 20.9 mL/min/1.7 3m*2 02/22/2025 8:16 AM EDT [facility] Comment:Reported eGFRcr in m L/min/1.73m2 is based the CKD-EPI 2020 equation that does not use a race coefficient. Blood Venous blood specimen / Unknown Venipuncture / Unknown 02/22/2025 7:18 AM EDT 02/22/2025 7:47 AM EDT Result [facility] Edil Kiran MD LAB BLOOD ORDERABLES Final Resul t [facility] [address] [place] [address] * Creatinine, Plasma (01/03/2025) Only the most recent of2 resultswithin the time period is included. External Creatinine Blood 3.00 mg/dL Blood Venous blood specimen / Unknown 01/03/2025 Result [facility] Historical Provider LAB BLOOD ORDERABLES Afsaneh l Result * Sodium, Plasma (01/03/2025) Only the most recent of2 resultswithin the time period is included. External Sodium 144 mmol/L Blood Venous blood specimen / Unknown 01/03/2025 Result [facility] Historical Provider LAB BLOOD ORDERABLES Afsaneh l Result * Albumin, Plasma (01/03/2025) Only the most recent of2 resultswithin the time period is included. External Albumin 3.6 g/dL Blood Venous blood specimen / Unknown 01/03/2025 Result [facility] Historical Provider LAB BLOOD ORDERABLES Afsaneh l Result * US OUTSIDE IMAGES (12/31/2024 7:33 AM EDT) Only the most recent of2 resultswithin the time period is included. Anatomical Region Laterality Modality Ultrasound 12/31/2024 7:33 AM EDT Monika Hernandez FLORAL MERCHANDISER IMG US PROCEDURES Final Result * Total Bilirubin, Plasma (12/14/2024) External Bilirubin Total 0.9 mg/dL Blood Venous blood specimen / Unknown 12/14/2024 Historical Provider LAB BLOOD ORDERABLES Afsaneh l Result * XR OUTSIDE IMAGES (12/10/2024 8:34 AM EDT) Only the most recent of4 resultswithin the time period is included. Anatomical Region Laterality Modality Radiographic Josiane ging 12/10/2024 8:34 AM EDT us External Provider IMG XR PROCEDURES Final Result * (ABNORMAL) Hemoglobin A1c [...] Most Recently Relevant to Health Maintenance Insurance [facility] MEDICARE [employer] Care Teams Sql Dba Relationship Specialty Start Date End Date Monika Hernandez APRN [address] [facility] [place] [address] PCP - General 01/19/25 Sary Brannon APRN [address] [place] [address] [place], [place] [address] Referring Physician Gastroenterology 01/07/25
--- OUTSIDE RECORDS SUMMARY | 2025-03-08 08:39 | XMS_ITS | Encounter Summary ---
Author Organization Healthcare Address [address] [place] [address] Care Team Providers Care Association Executive Name Role Phone Larry Bedolla MD Primary Care Provider + [phone] Sary Brannon ART HANDLER Unavailable [phone] Monika Hernandez APRN Primary Care Provider [phone] Encounter Details Date Type Department Care Team (Late st Contact Info) Description 01/03/2025 [facility] [address] [place] [address] Sary Brannon, ART HANDLER [address] [place], [place] [id number] Social History Tobacco Use Types Packs/Day Years [...] EDT Appointment [facility] [address] [place] [address] 03/22/2025 9:00 AM EDT Clinical Support [facility] [address] [place] [address] 03/22/2025 10:30 AM EDT Office Visit [facility] [place] [address] [place] [address] Geronimo Tran MD [address] [place] [address] documented as of this encounter Visit Diagnoses Not on filedocumented in this encounter Additional Health Concerns Assessment Noted Time A fall risk assessment has been complete d for the patient 01/02/2022 1:17 PM EDT A Body Mass Index follow-up plan has been documented for the patient 11/13/2022 11:41 AM EDT documented as of this encounter Care Teams Association Executive Relationship Specialty Start Date End Date Larry Bedolla MD [address] [place] [address] PCP - General 12/08/20 01/18/25 Monika Hernandez APRN [address] [place] [address] PCP - General 01/19/25 Sary Brannon APRN [address] [facility] [address] [place] [address] Referring Physician Gastroenterology 01/07/25 documented as of this encounter
--- NOTE | 2025-03-08 09:00 | US_ITS ---
FINAL REPORT CLINICAL HISTORY: R18.8 - Other ascites-- RT SIDE-- 5500 ML-- FROILAN GOODWIN FINDINGS: ULTRASOUND-GUIDED PARACENTESIS HISTORY: Ascites. ATTENDING RADIOLOGIST: Dr. Myles. PHYSICIAN MICRO PHOTOGRAPHER: Froilan Goodwin PA-C. FINDINGS: After informed consent was obtained and time-out procedure performed, the patient was placed sitting upright in the ultrasound suite. Fluid was localized in the right lower quadrant under ultrasound guidance and marked on the skin appropriately. The patient was then prepped and draped in the usual sterile fashion and the skin was anesthetized with 1% lidocaine. An ultrasound-guided paracentesis was then performed using a Turkel needle. Approximately 5.5 liters of clear yellow fluid was removed. No fluid was sent to the lab. The patient tolerated the procedure well and there were no immediate complications. IMPRESSION: Ultrasound-guided right lower quadrant paracentesis, as discussed above. Reviewed, Interpreted and Dictated by Lizzie Myles MD Transcribed by [employer] [facility] Authenticated and [facility]
[2025-03-08] MEDS: ALBUMIN HUMAN 50 GM/200 ML BAG IV (10:46)
[2025-03-08 10:50] VITALS: BP 146/79; PULSE 93; RESP 18; O2SAT 98
[2025-03-08 11:46] VITALS: BP 165/85; PULSE 92; RESP 18; O2SAT 98
[2025-03-08 12:40] VITALS: BP 156/82; PULSE 82; RESP 18; O2SAT 97
== END 2025-03-08 12:40 | disposition home or self-care (01) ==
LOC: RAD 08:26 → INF 09:51
PROVIDERS: PCP Family Medicine; Visit Provider Nurse Practitioner Family
DX: K70.31 Alcoholic cirrhosis of liver with ascites (principal)
CPT/HCPCS: 49083; 96365; P9047

== ENCOUNTER 2025-03-16 09:20 | Outpatient (CLI) | payer MEDICARE, MEDICAID, SELFPAY ==
--- OUTSIDE RECORDS SUMMARY | 2018-11-16 06:00 | XMS_ITS | Continuity of Care Document ---
Author Organization [facility] Address [address] [place] [phone] Phone Care Team Providers Care Orthopedic Podiatrist Name Role Phone Dane Pink MD Unavailable [...] Provider Providers Copied on Encounter Connor Cameron [facility], [address] [place] [address], [id number], tel:[phone] JENNIFER Torres [place] No Information 9 Apryl Vela. [address] [place] [address], [id number] , . tel:[phone] OFFICE/OUTPA TIENT VISIT, EST Connor Cameron [facility], [address] [place] [address], [address] [place] [address], tel:[phone] [place] inflammation ck OS (chief complaint) Iritis, recurrent, left eye 9 Apryl Vela. [address] [place] [address], [address] [place] [address] , . tel:[phone] Referring Provider: Self Referred Jose C Connor Cameron [facility], [address] [place] [address], [id number], tel:[phone] JENNIFER Torres [place] Anterior Seg ck (chief complaint) Iritis, recurrent, left eye 9 Apryl Vela. [address] [place] [address], [id number] , . tel:[phone] Referring Provider: Maria Teresa Santos, [employer] [address] [place] [address], [facility]. tel:[phone] Family History Family Member Type Diagnosis Age At Onset Problem (finding) Family history of Diabe reynold mellitus Problem (finding) Family history of Cardi ovascular disease Problem (finding) Family history of glauc haroon Payers Payer name Insurance type Covered alliance party ID Authoriza tion(s) Medicare [facility] [id number] Social History Type Description Quantity Date Captured [...]
--- OUTSIDE RECORDS SUMMARY | 2025-02-22 09:20 | XMS_ITS | Encounter Summary ---
Author Organization Healthcare Address [address] [place] [address] Care Team Providers Care Prosthetist Name Role Phone Sary Brannon NEWSPAPER DELIVERY DRIVER Unavailable [phone] Monika Hernandez APRN Primary Care Provider [phone] Reason for Referral * Consultation (Routine) - Authorized Specialty Diagnoses / Procedures Referred By Contac t Referred To Contact Physical Therapy Diagnoses End-stage liver disease (CMS/HCC) Ollie Calvo MD [address] [address] Phone: tel: fax: Referral ID Status Reason Start Date Expiration Date Visits Requested Visits Authorized [id number] Authorized Consult and Treat 02/22/2025 08/24/2026 1 1 * Imaging (Routine) - Pending Review Specialty Diagnoses / Procedures Referred By Contmazin t Referred To Contact Diagnoses End-stage liver disease (CMS/HCC) Procedures US Abdomen Ollie Calvo MD [address] [address] Phone: tel: fax: Referral ID Status Reason Start Date Expiration Date V isits Requested Visits Authorized [id number] Pending Review 02/22/2025 08/24/2026 1 1 * Imaging (Routine) - Pending Review Specialty Diagnoses / Procedures Referred By Mayela may Referred To Contact Gastroenterology Diagnoses End-stage liver disease (CMS/HCC) Procedures EGD Ollie Calvo MD [address] [address] Phone: tel: fax: Referral ID Status Reason Start Date Expiration Date Visits Requested Visits Authorized [id number] Pending Review Specialty Services Required 02/22/2025 08/24/2026 1 1 Reason for Visit * Reason Comments Pre-Liver Txp Follow-up * Consultation (Routine) - Closed Specialty Diagnoses / Procedures Referred By Mayela may Referred To Contact Transplant Diagnoses End-stage liver disease (CMS/HCC) Edil Kiran MD [address] [facility] [address] [place] [phone] Phone: tel: fax: [facility] [place] [address] [address] Phone: tel: fax: Referral ID Status Reason Start Date Expiration Date V isits Requested Visits Authorized [id number] Closed Specialty Services Required 01/19/2025 07/21/2026 1 1 Encounter Details Date Type Department Care Team (Late st Contact Info) Description 02/22/2025 9:20 AM EDT Office Visit [facility] [address] [phone] Ollie Calvo MD [address] [address] End-stage liver disease (CMS/HCC) (Primary [...] Txp Follow-up Edil Kiran MD [address] [address] [facility] Patient is a 64 year old female with a past medical history of decompensated cirrhosis secondary toMASLD. Patient presents today for initial transplant consultation. Patient was initially diagnosed with cirrhosis around 3 years ago. She was hospitalized in [facility] for hepatorenal syndrome and was treated [...] as well. She then followed with her [employer] with Holter monitor and Amio was discontinued [...] 8 week repeat Colonoscopy: performed 01/2021 at [facility] with polypectomy (TA). 1 year repeat [...] TO TEST BID, Disp: , Rfl: HYDROcodone-acetaminophen ([place]) 10-325 MG tablet, , Disp: , Rfl: [...] Care Team (Late st Contact Info) Description 03/22/2025 8:00 AM EDT Appointment [facility] [address] [place] [address] 03/22/2025 9:00 AM EDT Clinical Support [facility] [address] [place] [address] 03/22/2025 10:30 AM EDT Office Visit [facility] [address] [place] [address] Geronimo Tran MD [address] [facility] [address] [place] [address] Scheduled Orders Name Type Priority Associated Diagnoses [...] documented as of this encounter Care Teams Prosthetist Relationship Specialty Start Date End Date Monika Hernandez APRN [address] [place] [phone] PCP - General 01/19/25 Sary Brannon APRN [address] [place] [address] Referring Physician Gastroenterology 01/07/25 documented as of this encounter
--- OUTSIDE RECORDS SUMMARY | 2025-03-16 09:23 | XMS_ITS | Encounter Summary ---
Author Organization Healthcare Address [address] [place] [address] Care Team Providers Care Rn Stars Name Role Phone Larry Bedolla MD Primary Care Provider + [phone] Sary Brannon APRN Unavailable [phone] Monika Hernandez APRN Primary Care Provider [phone] Encounter Details Date Type Department Care Team (Late st Contact Info) Description 11/30/2024 Orders Only External Location [address] [place] [address] Provider, External Social History Tobacco Use Types [...] EDT Appointment [facility] [address] [place] [address] 03/22/2025 9:00 AM EDT Clinical Support [facility] [address] [facility] [address] [place] [address] 03/22/2025 10:30 AM EDT Office Visit [facility] [address] [place] [phone] Geronimo Tran MD [address] [place] [address] documented as of this encounter Procedures Procedure [...] as of this encounter Care Teams Rn Stars Relationship Specialty Start Date End Date Larry Bedolla MD [address] [place] [address] PCP - General 12/08/20 01/18/25 Monika Hernandez APRN [address] [place] [address] PCP - General 01/19/25 Sary Brannon APRN [address] [place] [address] Referring Physician Gastroenterology 01/07/25 documented as of this encounter
--- OUTSIDE RECORDS SUMMARY | 2025-03-16 09:23 | XMS_ITS | Encounter Summary ---
Author Organization Healthcare Address [address] [place] [address] Care Team Providers Care Nurse General Duty Name Role Phone Larry Bedolla MD Primary Care Provider + [phone] Sary Brannon SECRETARY TO THE VICE PRESIDENT Unavailable [phone] Monika Hernandez APRN Primary Care Provider [phone] Encounter Details Date Type Department Care Team (Late st Contact Info) Description 01/03/2025 Community [facility] [address] [place] [address] Sary Brannon, SECRETARY TO THE VICE PRESIDENT [address] [place], [place] [address] Social History Tobacco Use Types Packs/Day Years [...] EDT Appointment [facility] [address] [place] [address] 03/22/2025 9:00 AM EDT Clinical Support [facility] [address] [place] [address] 03/22/2025 10:30 AM EDT Office Visit [facility] [place] [address] [place] [phone] Geronimo Tran MD [address] [place] [address] documented as of this encounter Visit Diagnoses Not on filedocumented in this encounter Additional Health Concerns Assessment Noted Time A fall risk assessment has been complete d for the patient 01/02/2022 1:17 PM EDT A Body Mass Index follow-up plan has been documented for the patient 11/13/2022 11:41 AM EDT documented as of this encounter Care Teams Nurse General Duty Relationship Specialty Start Date End Date Larry Bedolla MD [address] [place] [address] PCP - General 12/08/20 01/18/25 Monika Hernandez APRN [address] [place] [address] PCP - General 01/19/25 Sary Brannon APRN [address] [facility] [address] [place] [address] Referring Physician Gastroenterology 01/07/25 documented as of this encounter
--- OUTSIDE RECORDS SUMMARY | 2025-03-16 09:23 | XMS_ITS | Encounter Summary ---
Author Organization Healthcare Address [address] [place] [address] Care Team Providers Care Manager Entry Name Role Phone Larry Bedolla MD Primary Care Provider + [phone] Sary Brannon APRN Unavailable [phone] Monika Hernandez APRN Primary Care Provider + [phone] Encounter Details Date Type Department Care Team (Late st Contact Info) Description 12/06/2024 Orders Only External Location [address] [place] [address] Provider, External Social History Tobacco Use Types [...] EDT Appointment [facility] [address] [place] [address] 03/22/2025 9:00 AM EDT Clinical Support [facility] [address] [facility] [address] [place] [address] 03/22/2025 10:30 AM EDT Office Visit [facility] [address] [place] [address] Geronimo Tran MD [address] [place] [address] documented as of this encounter Procedures Procedure [...] as of this encounter Care Teams Manager Entry Relationship Specialty Start Date End Date Larry Bedolla MD [address] [place] [address] PCP - General 12/08/20 01/18/25 Monika Hernandez APRN [address] [place] [address] PCP - General 01/19/25 Sary Brannon APRN [address] [facility] [address] [place] [address] Referring Physician Gastroenterology 01/07/25 documented as of this encounter
--- OUTSIDE RECORDS SUMMARY | 2025-03-16 09:23 | XMS_ITS | Encounter Summary ---
Author Organization Healthcare Address [address] [place] [address] Care Team Providers Care Tank Farm Attendant Name Role Phone Larry Bedolla MD Primary Care Provider + [phone] Sary Brannon APRN Unavailable [phone] Monika Hernandez APRN Primary Care Provider [phone] Encounter Details Date Type Department Care Team (Late st Contact Info) Description 12/31/2024 Orders Only External Location [address] [place] [address] Monika Hernandez APRN [address] [place], [place] [id number] Social History Tobacco Use Types Packs/Day Years [...] EDT Appointment [facility] [address] [place] [address] 03/22/2025 9:00 AM EDT Clinical Support [facility] [address] [place] [address] 03/22/2025 10:30 AM EDT Office Visit [facility] [place] [address] [place] [phone] Geronimo Tran MD [address] [place] [address] documented as of this encounter Procedures Procedure Name Priority Date/Time Associated Diagnosis Comments US OUTSIDE IMAGES 12/31/2024 7:33 AM EDT documented in this encounter Results * US OUTSIDE IMAGES (12/31/2024 7:33 AM EDT) Anatomical Region Laterality Modality Ultrasound 12/31/2024 7:33 AM EDT us Monika Hernandez ORTHOPEDIC NURSE PRACTITIONER IMG US PROCEDURES Final Result documented in this encounter Visit Diagnoses Not on filedocumented in this encounter Additional Health Concerns Assessment Noted Time A fall risk assessment has been complete d for the patient 01/02/2022 1:17 PM EDT A Body Mass Index follow-up plan has been documented for the patient 11/13/2022 11:41 AM EDT documented as of this encounter Care Teams Tank Farm Attendant Relationship Specialty Start Date End Date Larry Bedolla MD [address] [place] [address] PCP - General 12/08/20 01/18/25 Monika Hernandez APRN [address] [place] [address] PCP - General 01/19/25 Sary Brannon APRN [address] [facility] [address] [place] [address] Referring Physician Gastroenterology 01/07/25 documented as of this encounter
--- OUTSIDE RECORDS SUMMARY | 2025-03-16 09:23 | XMS_ITS | Clinical Summary ---
Author Organization [employer] ([place], [place], [place], [place]) Address [address] [place] [address] Care Team Providers Care Engineering Drawings Checker Name Role Phone Provider, Not In System [...] by mouth daily as needed. 30 tablet Active spironolactone (ALDACTONE) 25 MG tablet Take 0.5 tablets (12.5 mg total) by mouth daily. 15 tablet 5 Active Active Problems Problem Noted Date Diagnosed Date Anasarca 11/30/2024 Melena 11/29/2024 Encounters Date Type Department Care Team Description 11/30/2024 1:43 AM EDT - 12/14/2024 5:30 PM EDT Hospital Encounter [address] Medical Telemetry Unit 1 [place] [address] Albert Garcia MD Shamsulddin, Haider, MD Zohary, Yasser, MD Majeed, Irfan, MD Edie, Joseph A, PA-C Gray, Enoch, MD Melena (Primary Dx); rc Discharge Disposition: Home or Self Care from Last 3 Months Social History Tobacco Use Types Packs/Day Years Used Date Smoking Tobacco: Never Passive Smoke Exposure: Never Smokeless Tobacco: Never Tobacco Cessation:Counseling Given: Not Answered Alcohol Use Standard Drinks/Week Comments Never 0 (1 standard drink = 0.6 oz pur e alcohol) Utilities Answer Date Recorded In the past 12 months, has t he [employer], gas, oil, or water [employer] threatened to shut off services in your [...] your living situation today? I have a [facility] place to live 11/30/2024 Think about [...] Do you speak a language other than [place] [facility]? No 11/30/2024 Do you want help [...] 05/13/2021, 04/15/2021, 11/08/2020 Medicare IPPE (Welcome to [facility]) [id number] 07/28/2024 Influenza Vaccine (#1) 2025 Pneumococcal 50+ years (3 of 3 - PCV20 or PCV21) 05/15/2025 05/15/2020, 07/09/2016 Di[facility] 11/30/2025 11/30/2024 DTAP/TDAP/TD VACCINES (2 [...] AUTO DIFF Routine 12/14/2024 2:54 AM EDT HEMOGLOBIN A1C Routine 11/30/2024 8:20 AM EDT from Last 3 Months or Most Recently Relevant to Health Maintenance Results * (ABNORMAL) Glucose, Nova Meter (12/14/2024 3:41 PM EDT) Only the most recent of3 resultswithin the time period is included. [facility] Signature POC-GLUCOSE 203(H) 70 - 110 mg/dL 12/14/2024 3:42 PM EDT [facility] Comment: In the event of poor peripheral blood flow, venous or arterial blood should be used due to the potential of erroneous results. Notified Nurse RBV Pigment Furnace Tender [phone] 12/14/2024 3:42 PM EDT [facility] Blood WHOLE BLOOD / Unknown 12/14/2024 3:41 PM EDT 12/14/2024 3:42 PM EDT Narrative [facility] - 12/14/2024 3:42 PM EDT Pigment Furnace Tender ID is - [id number] us David Coffman PA-C POINT OF CARE TEST ORDERABLES Final Result Performing Organization Address [facility]/ZIP Co de Phone Number [facility] [address] [phone] * ECG 12 lead (12/14/2024 9:10 AM EDT) VENTRICULAR RATE EKG/MIN 89 BPM GE MUSE ATRIAL RATE (MCT) [address] Interval 146 ms GE MUSE QRS-INTERVAL (MSEC) 86 ms GE MUSE QT Interval 432 ms GE MUSE QTC Interval 525 ms GE MUSE P [place] 34 degrees GE MUSE R AXIS (MCT) -13 degrees GE MUSE T Wave [place] -2 degrees GE MUSE Wade Diagnosis Normal sinus rhythm Septal infarct (cited on or before 14-DEC-2024 ) Confirmed by QUINCY FOSS M.D. ([id number]) on 12/14/2024 5:07:26 PM GE MUSE 12/14/2024 9:10 AM EDT 12/14/2024 5:07 PM EDT Quincy Foss MD ECG ORDERABLES Final Result Performing Organization Address [facility]/ZIP Co de Phone Number GE MUSE * (ABNORMAL) CBC with automated diff (12/14/2024 2:54 AM EDT) Pathologist [facility] WBC 1.4(LL) 4.0 - 10.0 K/ L 12/14/2024 3:45 AM EDT [facility] RBC 2.45(L) 3.93 - 5.22 M/ L 12/14/2024 3:45 AM EDT [facility] Hemoglobin 7.6(L) 11.2 - 15.7 GM/DL 12/14/2024 3:45 AM EDT [facility] Hematocrit 24.1(L) 34.1 - 44.9 % 12/14/2024 3:45 AM EDT [facility] MCV 98(H) 79 - 95 fL 12/14/2024 3:45 AM EDT [facility] MCH 31.0 25.6 - 32.2 pg 12/14/2024 3:45 AM EDT [facility] MCHC 31.5(L) 32.2 - 35.5 GM/DL 12/14/2024 3:45 AM EDT [facility] RDW 16.3(H) 11.7 - 14.4 % 12/14/2024 3:45 AM EDT [facility] Platelets 51(L) 140 - 375 K/CU MM 12/14/2024 3:45 AM EDT [facility] MPV 12.3 9.4 - 12.3 fL 12/14/2024 3:45 AM EDT [facility] % Neutros 54 34 - 71 % 12/14/2024 3:45 AM EDT [facility] % Lymphs 32 19 - 52 % 12/14/2024 3:45 AM EDT [facility] % Monos 14(H) 5 - 13 % 12/14/2024 3:45 AM EDT [facility] % Eos 0(L) 1 - 6 % 12/14/2024 3:45 AM EDT [facility] % Baso 1 0 - 1 % 12/14/2024 3:45 AM EDT [facility] NRBC Absolute <0.01 0 - 0.012 K/ul 12/14/2024 3:45 AM EDT [facility] # Neutros 0.76(L) 1.56 - 6.13 K/ L 12/14/2024 3:45 AM EDT [facility] # Lymphs 0.45(L) 1.18 - 3.74 K/ L 12/14/2024 3:45 AM EDT [facility] # Monos 0.19(L) 0.24 - 0.86 K/ L 12/14/2024 3:45 AM EDT [facility] # Eos <0.03(L) 0.04 - 0.36 K/ L 12/14/2024 3:45 AM EDT [facility] # Baso <0.03 0.01 - 0.08 K/ L 12/14/2024 3:45 AM EDT [facility] Immature Granulocytes-Re lative 0.00(L) 0.01 - 0.43 % 12/14/2024 3:45 AM EDT [facility] # IG <0.03 0.00 - 0.03 K/uL 12/14/2024 3:45 AM EDT [facility] Blood Venipuncture / Unknown 12/14/2024 2:54 AM EDT 12/14/2024 3:27 AM EDT Narrative [facility] - 12/14/2024 3:45 AM [...] PA-C LAB BLOOD ORDERABLES Final Re sult [facility] [address] [phone] * (ABNORMAL) Comprehensive metabolic panel (12/14/2024 2:54 AM EDT) Sodium 145 136 - 145 meq/L 12/14/2024 4:13 AM EDT [facility] Potassium 3.5 3.4 - 5.1 meq/L 12/14/2024 4:13 AM EDT [facility] Chloride 109 98 - 112 meq/L 12/14/2024 4:13 AM EDT [facility] CO2 27 22 - 29 meq/L 12/14/2024 4:13 AM EDT [facility] Calcium 8.6 8.4 - 10.2 mg/dL 12/14/2024 4:13 AM EDT [facility] Glucose 146(H) 82 - 115 mg/dL 12/14/2024 4:13 AM EDT [facility] BUN 67.7(H) 9.8 - 20.1 mg/dL 12/14/2024 4:13 AM [facility] Creatinine 2.22(H) 0.57 - 1.11 mg/dL 12/14/2024 4:13 AM [facility] BUN/Creatinine 30(H) 8 - 20 12/14/2024 4:13 AM [facility] eGFR (mL/min/1.73m2) 25(L) >=60 mL/min/1. 73m2 12/14/2024 4:13 AM [facility] Albumin 3.2(L) 3.5 - 5.0 g/dL 12/14/2024 4:13 AM [facility] Alkaline Phosphatase 56 40 - 150 U/L 12/14/2024 4:13 AM [facility] ALT 21 <=34 U/L 12/14/2024 4:13 AM [facility] Comment: ALT2 reagent used for testing does not contain P5P supplementation and therefore may miss ALT elevations in patients with B6 deficiency. This population may be as high as 10% in the [place], with risk factors including malabsorption, drug interactions, and alcoholic hepatitis. AST 52(H) 11 - 34 U/L 12/14/2024 4:13 AM [facility] Comment: AST2 reagent used for testing does not contain P5P supplementation and therefore may miss AST elevations in patients with B6 deficiency. This population may be as high as 10% in the [place], with risk factors including malabsorption, drug interactions, and alcoholic hepatitis. Total Bilirubin 0.9 0.2 - 1.2 mg/dL 12/14/2024 4:13 AM [facility] Protein, Total 5.9(L) 6.4 - 8.3 g/dL 12/14/2024 4:13 AM [facility] Globulin 2.7 2.5 - 4.1 g/dL 12/14/2024 4:13 AM [facility] Anion Gap 13(H) 4 - 12 12/14/2024 4:13 AM [facility] A/G Ratio 1.2 0.7 - 1.9 12/14/2024 4:13 AM [facility] Osmolality Calc 311.0 mOsm/kg 4:13 AM EDT [facility] Blood Venipuncture / Unknown 12/14/2024 2:54 AM EDT 12/14/2024 3:26 AM EDT David Coffman PA-C LAB BLOOD ORDERABLES Final Re sult Performing Organization Address [facility] Co de Phone Number [facility] [address] [phone] * Hemoglobin A1c (11/30/2024 8:20 AM EDT) Hemoglobin A1C 4.9 4.0 - 5.6 % 11/30/2024 9:17 AM EDT [facility] Comment: Hemoglobin A1C levels are related to mean glucose during the preceding 2-3 months. Less than 7% demonstrates glycemic control in diabetic patients. Hemoglobin AlC % Suggested Diagnosis > or = 6.5 Diabetic 5.7 - 6.4 Prediabetic <5.7 Non-diabetic eAVG Glucose 93.93 70 - 126 mg/dL 11/30/2024 9:17 AM EDT [facility] Blood Venipuncture / Unknown 11/30/2024 8:20 AM EDT 11/30/2024 9:07 AM EDT Mikhail Hurtado MD LAB BLOOD ORDERABLES Final Resul t Performing Organization Address [facility] Co de Phone Number [facility] [address] [phone] from Last 3 Months or Most Recently Relevant to Health Maintenance Insurance [facility] AD[facility] Advance Directives For more information, please contact: [phone] * Full Code (Latest Code Status on File) Date Activated Date Inactivated Comments 11/30/2024 2:06 AM 12/14/2024 6:30 PM Care Teams Engineering Drawings Checker Relationship Specialty Start Date End Date Provider, Not In System [place] PCP - General 12/14/24
--- OUTSIDE RECORDS SUMMARY | 2025-03-16 09:23 | XMS_ITS | Encounter Summary ---
Author Organization Healthcare Address [address] [place] [address] Care Team Providers Care Brazer Resistance Name Role Phone Larry Bedolla MD Primary Care Provider + [phone] Sary Brannon APRN Unavailable [phone] Monika Hernandez APRN Primary Care Provider + [phone] Encounter Details Date Type Department Care Team (Late st Contact Info) Description 12/10/2024 Orders Only External Location [address] [place] [address] Provider, External Social History Tobacco Use Types [...] EDT Appointment [facility] A Radiology [address] [place] [address] 03/22/2025 9:00 AM EDT Clinical Support [facility] Transplant Center [address] [facility] [address] [place] [address] 03/22/2025 10:30 AM EDT Office Visit [facility] Transplant Center [address] [place] [place] [address] Geronimo Tran MD [address] [place] [address] documented as of this encounter Procedures Procedure [...] documented as of this encounter Care Teams Brazer Resistance Relationship Specialty Start Date End Date Larry Bedolla MD [address] [place] [address] PCP - General 12/08/20 01/18/25 Monika Hernandez APRN [address] [place] [address] PCP - General 01/19/25 Sary Brannon APRN [address] [facility] [address] [place] [address] Referring Physician Gastroenterology 01/07/25 documented as of this encounter
--- OUTSIDE RECORDS SUMMARY | 2025-03-16 09:23 | XMS_ITS | Referral Summary ---
Author Organization [employer] ([place], [place], [place], [place]) Address [address] [place] [address] Care Team Providers Care Truck Guard Name Role Phone Provider, Not In System Primary Care Provider Un available Encounters Date Type Department Care Team Description 11/30/2024 1:43 AM EDT - 12/14/2024 5:30 PM EDT Hospital Encounter [facility] 5B Medical Telemetry Unit 1 [place] [address] Albert Garcia MD Shamsulddin, Haider, MD Zohary, Yasser, MD Majeed, Irfan, MD Edie, Joseph A, Mikhail Plasencia MD Melena (Primary Dx); Anasarca Discharge Disposition: Home or Self Care from Last 3 Months Allergies No known [...] the past 12 months, has t he [employer], gas, oil, or water [employer] threatened to shut off services in your [...] your living situation today? I have a [facility] place to live 11/30/2024 Think about the [...] Do you speak a language other than [place] at [facility]? No 11/30/2024 [...] of3 resultswithin the time period is included. [facility] POC-GLUCOSE 203(H) 70 - 110 mg/dL 12/14/2024 3:42 PM EDT [facility] Comment: In the event of poor peripheral blood flow, venous or arterial blood should be used due to the potential of erroneous results. Notified Nurse RBV Outside Machinist Helper [phone] 12/14/2024 3:42 PM EDT [facility] Blood WHOLE BLOOD / Unknown 12/14/2024 3:41 PM EDT 12/14/2024 3:42 PM EDT Narrative [facility] - 12/14/2024 3:42 PM EDT Outside Machinist Helper ID is - [id number] us David Coffman PA-C POINT OF CARE TEST ORDERABLES Final Result Performing Organization Address [facility] Co de Phone Number [facility] [address] [phone] * ECG 12 lead (12/14/2024 9:10 AM EDT) [facility] VENTRICULAR RATE EKG/MIN 89 BPM GE MUSE ATRIAL RATE (MCT) 89 BPM GE MUSE [place] Interval 146 ms GE MUSE QRS-INTERVAL (MSEC) 86 ms GE MUSE QT Interval 432 ms GE MUSE QTC Interval 525 ms GE MUSE P [place] 34 degrees GE MUSE R AXIS (MCT) -13 degrees GE MUSE T Wave [place] -2 degrees GE MUSE [place] Diagnosis Normal sinus rhythm Septal infarct (cited on or before 14-DEC-2024 ) Confirmed by QUINCY FOSS M.D. ([id number]) on 12/14/2024 5:07:26 PM GE MUSE 12/14/2024 9:10 AM EDT 12/14/2024 5:07 PM EDT Quincy Foss MD ECG ORDERABLES Final Result Performing Organization Address [facility] Co de Phone Number GE MUSE * (ABNORMAL) CBC with automated diff (12/14/2024 2:54 AM EDT) WBC 1.4(LL) 4.0 - 10.0 K/ L 12/14/2024 3:45 AM EDT [facility] RBC 2.45(L) 3.93 - 5.22 M/ L 12/14/2024 3:45 AM EDT [facility] Hemoglobin 7.6(L) 11.2 - 15.7 GM/DL 12/14/2024 3:45 AM EDT [facility] Hematocrit 24.1(L) 34.1 - 44.9 % 12/14/2024 3:45 AM EDT [facility] MCV 98(H) 79 - 95 fL 12/14/2024 3:45 AM EDT [facility] MCH 31.0 25.6 - 32.2 pg 12/14/2024 3:45 AM EDT [facility] MCHC 31.5(L) 32.2 - 35.5 GM/DL 12/14/2024 3:45 AM EDT [facility] RDW 16.3(H) 11.7 - 14.4 % 12/14/2024 3:45 AM EDT [facility] Platelets 51(L) 140 - 375 K/CU MM 12/14/2024 3:45 AM EDT [facility] MPV 12.3 9.4 - 12.3 fL 12/14/2024 3:45 AM EDT [facility] % Neutros 54 34 - 71 % 12/14/2024 3:45 AM EDT [facility] % Lymphs 32 19 - 52 % 12/14/2024 3:45 AM EDT [facility] % Monos 14(H) 5 - 13 % 12/14/2024 3:45 AM EDT [facility] % Eos 0(L) 1 - 6 % 12/14/2024 3:45 AM EDT [facility] % Baso 1 0 - 1 % 12/14/2024 3:45 AM EDT [facility] NRBC Absolute <0.01 0 - 0.012 K/ul 12/14/2024 3:45 AM EDT [facility] # Neutros 0.76(L) 1.56 - 6.13 K/ L 12/14/2024 3:45 AM EDT [facility] # Lymphs 0.45(L) 1.18 - 3.74 K/ L 12/14/2024 3:45 AM EDT [facility] # Monos 0.19(L) 0.24 - 0.86 K/ L 12/14/2024 3:45 AM EDT [facility] # Eos <0.03(L) 0.04 - 0.36 K/ L 12/14/2024 3:45 AM EDT [facility] # Baso <0.03 0.01 - 0.08 K/ L 12/14/2024 3:45 AM EDT [facility] Immature Granulocytes-Re lative 0.00(L) 0.01 - 0.43 % 12/14/2024 3:45 AM EDT [facility] # IG <0.03 0.00 - 0.03 K/uL 12/14/2024 3:45 AM EDT [facility] Blood Venipuncture / Unknown 12/14/2024 2:54 AM EDT 12/14/2024 3:27 AM EDT Narrative [facility] - 12/14/2024 3:45 AM EDT When [...] PA-C LAB BLOOD ORDERABLES Final Re sult [facility] [address] [place] [address], [facility] [phone] * (ABNORMAL) Comprehensive metabolic panel (12/14/2024 2:54 AM EDT) Sodium 145 136 - 145 meq/L 12/14/2024 4:13 AM EDT [facility] Potassium 3.5 3.4 - 5.1 meq/L 12/14/2024 4:13 AM [facility] Chloride 109 98 - 112 meq/L 12/14/2024 4:13 AM [facility] CO2 27 22 - 29 meq/L 12/14/2024 4:13 AM [facility] Calcium 8.6 8.4 - 10.2 mg/dL [...] - 1.2 mg/dL 12/14/2024 4:13 AM EDT [facility] Protein, Total 5.9(L) 6.4 - 8.3 g/dL 12/14/2024 4:13 AM EDT [facility] Globulin 2.7 2.5 - 4.1 g/dL 12/14/2024 4:13 AM EDT [facility] Anion Gap 13(H) 4 - 12 12/14/2024 4:13 AM EDT [facility] A/G Ratio 1.2 0.7 - 1.9 12/14/2024 4:13 AM EDT [facility] Osmolality Calc 311.0 mOsm/kg 4:13 AM EDT [facility] Blood Venipuncture / Unknown 12/14/2024 2:54 AM EDT 12/14/2024 3:26 AM EDT David Coffman PA-C LAB BLOOD ORDERABLES Final Re sult Performing Organization Address City/State/[place] Co de Phone Number [facility] [address] [phone] * Hemoglobin A1c (11/30/2024 8:20 AM EDT) Hemoglobin A1C 4.9 4.0 - 5.6 % 11/30/2024 9:17 AM EDT [facility] Comment: Hemoglobin A1C levels are related to mean glucose during the preceding 2-3 months. Less than 7% demonstrates glycemic control in diabetic patients. Hemoglobin AlC % Suggested Diagnosis > or = 6.5 Diabetic 5.7 - 6.4 Prediabetic <5.7 Non-diabetic eAVG Glucose 93.93 70 - 126 mg/dL 11/30/2024 9:17 AM EDT [facility] Blood Venipuncture / Unknown 11/30/2024 8:20 AM EDT 11/30/2024 9:07 AM EDT us Mikhail Hurtado MD LAB BLOOD ORDERABLES Final Resul t [facility] [address] [place] [id number], [facility] [phone] from Last 3 Months or Most Recently Relevant to Health Maintenance Insurance [facility] Advance Directives For more information, please contact: [phone] * Full Code (Latest Code Status on File) Date Activated Date Inactivated Comments 11/30/2024 2:06 AM 12/14/2024 6:30 PM Care Teams Truck Guard Relationship Specialty Start Date End Date Provider, Not In System [place] PCP - General 12/14/24
--- OUTSIDE RECORDS SUMMARY | 2025-03-16 09:23 | XMS_ITS ---
Author Organization [facility] Address [address] [place] [address] Care Team Providers Care Financial Systems Analyst Name Role Phone Sary Brannon APRN Unavailable [phone] Monika Hernandez APRN Primary Care Provider + [phone] Transplant Episode Liver Candidate [facility] ([place], [place]) - JOSÉ LUIS Referred on 01/07/2025 Marked as Active on 01/07/2025 Liver CoordinatorMoraima Centeno RN Fax: N/A Email: N/A Scores Score Value Updated Expires Exceptions/Saloni sons CPRA Not available MELD (Calc) 22 02/22/2025 Care Team Name Role Phone Fax Email Moraima Centeno RN Liver Coordinator [phone] N/A N/A Sary Brannon APRN Referring Physician [phone] N/A Gem Clark Clinical Research Analyst [phone] N/A N/A Edil Kiran MD Surgeon [phone] N/A Events Pre-Transplant Referred: 01/07/2025 Committee: 02/28/2025 Appointments (02/13/2025 - 04/16/2025) When With Visit Type Description 02/22/2025 Transplant [...]
--- OUTSIDE RECORDS SUMMARY | 2025-03-16 09:23 | XMS_ITS | Encounter Summary ---
Author Organization Healthcare Address [address] [place] [address] Care Team Providers Care Weigher And Grader Name Role Phone Sary Brannon PENOLOGY PROFESSOR Unavailable [phone] David Monika ÁNGEL Primary Care Provider + [phone] Encounter Details Date Type Department Care Team [...] Appointment [facility] Radiology [address] [place] [address] 03/22/2025 9:00 AM EDT Clinical Support [facility] [place] [address] [address] 03/22/2025 10:30 AM EDT Office Visit [facility] [place] [address] [address] Geronimo Tran MD [address] [facility] [address] [place] [address] documented as of this encounter Visit Diagnoses Not on filedocumented in this encounter Additional Health Concerns Assessment Noted Time A fall risk assessment has been complete d for the patient 02/22/2025 8:10 AM EDT A Body Mass Index follow-up plan has been documented for the patient 02/26/2025 2:56 PM EDT documented as of this encounter Care Teams Weigher And Grader Relationship Specialty Start Date End Date Monika Hernandez APRN [address] [place] [address] PCP - General 01/19/25 Sary Brannon APRN [address] [place] [address] Referring Physician Gastroenterology 01/07/25 documented as of this encounter
--- OUTSIDE RECORDS SUMMARY | 2025-03-16 09:23 | XMS_ITS | Encounter Summary ---
Author Organization Healthcare Address [address] [place] [address] Care Team Providers Care Loan Review Officer Name Role Phone Larry Bedolla MD Primary Care Provider + [phone] Sary Brannon APRN Unavailable [phone] Monika Hernandez APRN Primary Care Provider + [phone] Encounter Details Date Type Department Care Team (Late st Contact Info) Description 12/09/2024 Orders Only External Location [address] [place] [address] Provider, External Social History Tobacco Use Types [...] EDT Appointment [facility] Radiology [address] [place] [address] 03/22/2025 9:00 AM EDT Clinical Support [facility] Transplant Center [address] [facility] [address] [place] [address] 03/22/2025 10:30 AM EDT Office Visit [facility] Transplant Center [address] [place] [address] Geronimo Tran MD [address] [place] [address] documented as of this encounter Procedures Procedure [...] documented as of this encounter Care Teams Loan Review Officer Relationship Specialty Start Date End Date Larry Bedolla MD [address] [place] [address] PCP - General 12/08/20 01/18/25 Monika Hernandez APRN [address] [place] [address] PCP - General 01/19/25 Sary Brannon APRN 1210 [facility] [address] [place] [address] Referring Physician Gastroenterology 01/07/25 documented as of this encounter
--- OUTSIDE RECORDS SUMMARY | 2025-03-16 09:23 | XMS_ITS | Encounter Summary ---
Author Organization Healthcare Address [address] [place] [address] Care Team Providers Care Network Design Architect Name Role Phone aLrry Bedolla MD Primary Care Provider + [phone] Sary Brannon APRN Unavailable [phone] Monika Hernandez APRN Primary Care Provider + [phone] Encounter Details Date Type Department Care Team (Late st Contact Info) Description 11/29/2024 Orders Only External Location [address] [place] [address] Provider, External Social History Tobacco Use Types [...] EDT Appointment [facility] Radiology [address] [place] [address] 03/22/2025 9:00 AM EDT Clinical Support [facility] Transplant Center [address] [facility] [address] [place] [address] 03/22/2025 10:30 AM EDT Office Visit [facility] Transplant Center [address] [place] [address] Geronimo Tran MD [address] [place] [address] documented as of this encounter Procedures Procedure [...] documented as of this encounter Care Teams Network Design Architect Relationship Specialty Start Date End Date Larry Bedolla MD [address] [place] [address] PCP - General 12/08/20 01/18/25 Monika Hernandez APRN [address] [place] [address] PCP - General 01/19/25 Sary Brannon APRN 1210 [facility] [address] [place] [address] Referring Physician Gastroenterology 01/07/25 documented as of this encounter
--- OUTSIDE RECORDS SUMMARY | 2025-03-16 09:23 | XMS_ITS | Encounter Summary ---
Author Organization Healthcare Address [address] [place] [address] Care Team Providers Care Meat And Poultry Inspector Name Role Phone Larry Bedolla MD Primary Care Provider + [phone] Sary Brannon APRN Unavailable [phone] Monika Hernandez APRN Primary Care Provider + [phone] Encounter Details Date Type Department Care Team (Late st Contact Info) Description 11/30/2024 Orders Only External Location [address] [place] [address] Provider, External Social History Tobacco Use Types [...] EDT Appointment [facility] Radiology [address] [place] [address] 03/22/2025 9:00 AM EDT Clinical Support [facility] [address] [facility] [address] [place] [address] 03/22/2025 10:30 AM EDT Office Visit [facility] [address] [place] [address] Geronimo Tran MD [address] [place] [address] documented as of this encounter Procedures Procedure [...] documented as of this encounter Care Teams Meat And Poultry Inspector Relationship Specialty Start Date End Date Larry Bedolla MD [address] [place] [address] PCP - General 12/08/20 01/18/25 Monika Hernandez APRN [address] [place] [address] PCP - General 01/19/25 Sary Brannon APRN 1210 [facility] [address] [place] [address] Referring Physician Gastroenterology 01/07/25 documented as of this encounter
--- OUTSIDE RECORDS SUMMARY | 2025-03-16 09:23 | XMS_ITS | Encounter Summary ---
Author Organization Healthcare Address [address] [place] [address] Care Team Providers Care Accounts Payable Technician Name Role Phone Larry Bedolla MD Primary Care Provider + [phone] Sary Brannon APRN Unavailable [phone] Monika Hernandez APRN Primary Care Provider + [phone] Encounter Details Date Type Department Care Team (Late st Contact Info) Description 11/30/2024 Orders Only External Location [address] [place] [address] Provider, External Social History Tobacco Use Types [...] EDT Appointment [facility] Radiology [address] [place] [address] 03/22/2025 9:00 AM EDT Clinical Support [facility] [address] [facility] [address] [place] [address] 03/22/2025 10:30 AM EDT Office Visit [facility] [address] [place] [address] Geronimo Tran MD [address] [place] [address] documented as of this encounter Procedures Procedure [...] documented as of this encounter Care Teams Accounts Payable Technician Relationship Specialty Start Date End Date Larry Bedolla MD [address] [place] [address] PCP - General 12/08/20 01/18/25 Monika Hernandez APRN [address] [place] [address] PCP - General 01/19/25 Sary Brannon APRN 1210 [facility] [address] [place] [address] Referring Physician Gastroenterology 01/07/25 documented as of this encounter
--- OUTSIDE RECORDS SUMMARY | 2025-03-16 09:23 | XMS_ITS | Clinical Summary ---
Author Organization [facility] [place] [address] Care Team Providers Care Sixth Grade Teacher Name Role Phone Unavailable Primary Care [...]
--- OUTSIDE RECORDS SUMMARY | 2025-03-16 09:23 | XMS_ITS | Encounter Summary ---
Author Organization Healthcare Address [address] [place] [address] Care Team Providers Care Staff Climate Scientist Name Role Phone Larry Bedolla MD Primary Care Provider + [phone] Sary Brannon APRN Unavailable [phone] Monika Hernandez APRN Primary Care Provider + [phone] Encounter Details Date Type Department Care Team (Late st Contact Info) Description 11/30/2024 Orders Only External Location [address] [place] [address] Provider, External Social History Tobacco Use Types [...] EDT Appointment [facility] Radiology [address] [place] [address] 03/22/2025 9:00 AM EDT Clinical Support [facility] [address] [facility] [address] [place] [address] 03/22/2025 10:30 AM EDT Office Visit [facility] [address] [place] [address] Geronimo Tran MD [address] [place] [address] documented as of this encounter Procedures Procedure [...] documented as of this encounter Care Teams Staff Climate Scientist Relationship Specialty Start Date End Date Larry Bedolla MD [address] [place] [address] PCP - General 12/08/20 01/18/25 Monika Hernandez APRN [address] [place] [address] PCP - General 01/19/25 Sary Brannon APRN 1210 [facility] [address] [place] [address] Referring Physician Gastroenterology 01/07/25 documented as of this encounter
--- OUTSIDE RECORDS SUMMARY | 2025-03-16 09:23 | XMS_ITS | Encounter Summary ---
Author Organization Healthcare Address [address] 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) Social History Tobacco Use Types Packs/Day [...] EDT Appointment [facility] Radiology [address] [place] [address] 03/22/2025 9:00 AM EDT Clinical Support [facility] [place] [address] [facility] [address] [place] [address] 03/22/2025 10:30 AM EDT Office Visit [facility] [place] [address] [place] [address] Geronimo Tran MD [address] [facility] [address] [place] [address] documented as of this encounter Visit Diagnoses Diagnosis CKD (chronic kidney disease) stage 2, GFR 60-89 ml/min Chronic kidney disease, Stage II (mild) Microalbuminuria Proteinuria 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, unspecified vessel or lesion type (CMS/HCC) documented in this encounter Additional Health Concerns Assessment Noted Time A fall risk assessment has been complete d for the patient 01/02/2022 1:17 PM EDT A Body Mass Index follow-up plan has been documented for the patient 11/13/2022 11:41 AM EDT documented as of this encounter Care Teams Beeswax Bleacher Relationship Specialty Start Date End Date Larry Bedolla MD [address] [place] [address] PCP - General 12/08/20 01/18/25 Monika Hernandez APRN [address] [place] [address] PCP - General 01/19/25 Sary Brannon APRN [address] [place] [address] Referring Physician Gastroenterology 01/07/25 documented as of this encounter
--- OUTSIDE RECORDS SUMMARY | 2025-03-16 09:23 | XMS_ITS | Encounter Summary ---
Author Organization Healthcare Address [address] [place] [address] Care Team Providers Care Mysql Database Administrator Name Role Phone Larry Bedolla MD Primary Care Provider + [phone] Sary Brannon APRN Unavailable [phone] Monika Hernandez APRN Primary Care Provider [phone] Encounter Details Date Type Department Care Team (Late st Contact Info) Description 01/21/2022 Community [facility] [address] [place] [address] Larry Bedolla MD [address] [place], [place] [id number] Central stenosis of spinal canal (Primary Dx) [...] Appointment [facility] Radiology [address] [place] [address] 03/22/2025 9:00 AM EDT Clinical Support [facility] [place] [address] [place] [address] 03/22/2025 10:30 AM EDT Office Visit [facility] [address] [place] [address] Geronimo Tran MD [address] [place] [address] documented as of this encounter Visit Diagnoses Diagnosis Central stenosis of spinal canal- Primary documented in this encounter Additional Health Concerns Assessment Noted Time A fall risk assessment has been complete d for the patient 01/02/2022 1:17 PM EDT documented as of this encounter Care Teams Mysql Database Administrator Relationship Specialty Start Date End Date Larry Bedolla MD [address] [place] [address] PCP - General 12/08/20 01/18/25 Monika Hernandez APRN [address] [place] [address] PCP - General 01/19/25 Sary Brannon APRN 1210 [facility] [address] [place] [address] Referring Physician Gastroenterology 01/07/25 documented as of this encounter
--- OUTSIDE RECORDS SUMMARY | 2025-03-16 09:23 | XMS_ITS | Encounter Summary ---
Author Organization Healthcare Address [address] [place] [address] Care Team Providers Care Locomotive Pipe Fitter Name Role Phone Larry Bedolla MD Primary Care Provider + [phone] Sayr Brannon APRN Unavailable [phone] Monika Hernandez APRN Primary Care Provider [phone] Encounter Details Date Type Department Care Team (Late st Contact Info) Description 04/02/2017 Orders Only External Location [address] [place] [address] Provider, External Social History Tobacco Use Types [...] EDT Appointment [facility] Radiology [address] [place] [address] 03/22/2025 9:00 AM EDT Clinical Support [facility] [address] [facility] [address] [place] [address] 03/22/2025 10:30 AM EDT Office Visit [facility] [place] [address] [facility] [address] [place] [address] Geronimo Tran MD [address] [facility] [address] [place] [address] documented as of this encounter Procedures Procedure [...] on filedocumented in this encounter Care Teams Locomotive Pipe Fitter Relationship Specialty Start Date End Date Larry Bedolla MD [address] [place] [address] PCP - General 12/08/20 01/18/25 Monika Hernandez APRN [address] [place] [address] PCP - General 01/19/25 Sary Brannon APRN [address] [place] [address] [address] [place] [address] Referring Physician Gastroenterology 01/07/25 documented as of this encounter
--- OUTSIDE RECORDS SUMMARY | 2025-03-16 09:23 | XMS_ITS | Encounter Summary ---
Author Organization Healthcare Address [address] [place] [address] Care Team Providers Care Bar Roller Name Role Phone Larry Bedolla MD Primary Care Provider + [phone] Sary Brannon APRN Unavailable [phone] Monika Hernandez APRN Primary Care Provider + [phone] Encounter Details Date Type Department Care Team (Late st Contact Info) Description 12/03/2024 Orders Only External Location [address] [place] [address] Provider, External Social History Tobacco Use Types [...] EDT Appointment [facility] Radiology [address] [place] [address] 03/22/2025 9:00 AM EDT Clinical Support [facility] [address] [facility] [address] [place] [address] 03/22/2025 10:30 AM EDT Office Visit [facility] [address] [place] [address] Geronimo Tran MD [address] [place] [address] documented as of this encounter Procedures Procedure [...] documented as of this encounter Care Teams Bar Roller Relationship Specialty Start Date End Date Larry Bedolla MD [address] [place] [address] PCP - General 12/08/20 01/18/25 Monika Hernandez APRN [address] [place] [address] PCP - General 01/19/25 Sary Brannon APRN 1210 [facility] [address] [place] [address] Referring Physician Gastroenterology 01/07/25 documented as of this encounter
--- OUTSIDE RECORDS SUMMARY | 2025-03-16 09:23 | XMS_ITS | Encounter Summary ---
Author Organization Healthcare Address [address] [place] [address] Care Team Providers Care Battery Assembler Plastic Name Role Phone Larry Bedolla MD Primary Care Provider + [phone] Sary Brannon APRN Unavailable [phone] Monika Hernandez APRN Primary Care Provider + [phone] Encounter Details Date Type Department Care Team (Late st Contact Info) Description 12/04/2024 Orders Only External Location [address] [place] [address] Provider, External Social History Tobacco Use Types [...] EDT Appointment [facility] Radiology [address] [place] [address] 03/22/2025 9:00 AM EDT Clinical Support [facility] [address] [facility] [address] [place] [address] 03/22/2025 10:30 AM EDT Office Visit [facility] [address] [place] [address] Geronimo Tran MD [address] [place] [address] documented as of this encounter Procedures Procedure [...] documented as of this encounter Care Teams Battery Assembler Plastic Relationship Specialty Start Date End Date Larry Bedolla MD [address] [place] [address] PCP - General 12/08/20 01/18/25 Monika Hernandez APRN [address] [place] [address] PCP - General 01/19/25 Sary Brannon APRN 1210 [facility] [address] [place] [address] Referring Physician Gastroenterology 01/07/25 documented as of this encounter
--- OUTSIDE RECORDS SUMMARY | 2025-03-16 09:23 | XMS_ITS | Encounter Summary ---
Author Organization Healthcare Address [address] [place] [address] Care Team Providers Care Abattoir Manager Name Role Phone Larry Bedolla MD Primary Care Provider + [phone] Sary Brannon APRN Unavailable [phone] Monika Hernandez APRN Primary Care Provider + [phone] Encounter Details Date Type Department Care Team (Late st Contact Info) Description 12/02/2024 Orders Only External Location [address] [place] [address] Provider, External Social History Tobacco Use Types [...] EDT Appointment [facility] Radiology [address] [place] [address] 03/22/2025 9:00 AM EDT Clinical Support [facility] [address] [facility] [address] [place] [address] 03/22/2025 10:30 AM EDT Office Visit [facility] [address] [place] [address] Geronimo Tran MD [address] [place] [address] documented as of this encounter Procedures Procedure [...] documented as of this encounter Care Teams Abattoir Manager Relationship Specialty Start Date End Date Larry Bedolla MD [address] [place] [address] PCP - General 12/08/20 01/18/25 Monika Hernandez APRN [address] [place] [address] PCP - General 01/19/25 Sary Brannon APRN 1210 [facility] [address] [place] [address] Referring Physician Gastroenterology 01/07/25 documented as of this encounter
--- OUTSIDE RECORDS SUMMARY | 2025-03-16 09:23 | XMS_ITS | Encounter Summary ---
Author Organization [facility] Address [address] [place] [address] Care Team Providers Care Contact Lens Blocker And Cutter Name Role Phone Sary Brannon NEWSPAPER PEDDLER Unavailable [phone] Monika Hernandez APRN Primary Care Provider + [phone] Reason for Visit * Reason Comments Appointment Confirmation and rem inders Encounter Details Date Type Department Care Team (Late st Contact Info) Description 02/17/2025 Telephone [facility] [address] [place] [address] Jessica Simms [place] [phone] Appointment (Confirmation and reminders) Social History Tobacco [...] EDT Appointment [facility] Radiology [address] [place] [address] 03/22/2025 9:00 AM EDT Clinical Support [facility] [place] [address] [facility] [address] [place] [address] 03/22/2025 10:30 AM EDT Office Visit [facility] [place] [address] [facility] [address] [place] [address] Geronimo Tran MD [address] [facility] [address] [place] [address] documented as of this encounter Visit Diagnoses Not on filedocumented in this encounter Additional Health Concerns Assessment Noted Time A fall risk assessment has been complete d for the patient 01/02/2022 1:17 PM EDT A Body Mass Index follow-up plan has been documented for the patient 11/13/2022 11:41 AM EDT documented as of this encounter Care Teams Contact Lens Blocker And Cutter Relationship Specialty Start Date End Date Monika Hernandez APRN [address] [place] [address] PCP - General 01/19/25 Sary Brannon APRN [address] [place] [address] [address] [place] [address] Referring Physician Gastroenterology 01/07/25 documented as of this encounter
--- OUTSIDE RECORDS SUMMARY | 2025-03-16 09:23 | XMS_ITS | Encounter Summary ---
Author Organization Healthcare Address [address] [place] [address] Care Team Providers Care Snowboard Instructor Name Role Phone Larry Bedolla MD Primary Care Provider + [phone] Sary Brannon PCAT INSTRUCTOR Unavailable [phone] Monika Hernandez APRN Primary Care Provider [phone] Reason for Visit * Reason Comments Med Refill Encounter Details Date Type Department Care Team (Late st Contact Info) Description 04/12/2021 Refill [facility] Endocrinology [address] [place] [address] Lina Lowe, PCAT INSTRUCTOR 2[address] [facility] [address] [place] [address] Social History Tobacco Use Types [...] EDT Appointment [facility] Radiology [address] [place] [address] 03/22/2025 9:00 AM EDT Clinical Support [facility] [address] [place] [address] 03/22/2025 10:30 AM EDT Office Visit [facility] [place] [address] [place] [address] Geronimo Tran MD [address] [facility] [address] [place] [address] documented as of this encounter Visit Diagnoses Not on filedocumented in this encounter Care Teams Snowboard Instructor Relationship Specialty Start Date End Date Larry Bedolla MD [address] [place] [address] PCP - General 12/08/20 01/18/25 Monika Hernandez APRN [address] [place] [address] PCP - General 01/19/25 Sary Brannon APRN 1210 [facility] [address] [place] [address] Referring Physician Gastroenterology 01/07/25 documented as of this encounter
--- OUTSIDE RECORDS SUMMARY | 2025-03-16 09:23 | XMS_ITS | Encounter Summary ---
Author Organization Healthcare Address [address] [place] [address] Care Team Providers Care Senior Manager Mergers & Acquisitions Name Role Phone Larry Bedolla MD Primary Care Provider + [phone] Sary Brannon APRN Unavailable [phone] Monika Hernandez APRN Primary Care Provider [phone] Encounter Details Date Type Department Care Team (Late st Contact Info) Description 04/30/2018 Orders Only External Location [address] [place] [address] Provider, External Social History Tobacco Use Types [...] EDT Appointment [facility] Radiology [address] [place] [address] 03/22/2025 9:00 AM EDT Clinical Support [facility] [address] [facility] [address] [place] [address] 03/22/2025 10:30 AM EDT Office Visit [facility] [place] [address] [facility] [address] [place] [address] Geronimo Tran MD [address] [facility] [address] [place] [address] documented as of this encounter Procedures Procedure [...] on filedocumented in this encounter Care Teams Senior Manager Mergers & Acquisitions Relationship Specialty Start Date End Date Larry Bedolla MD [address] [place] [address] PCP - General 12/08/20 01/18/25 Monika Hernandez APRN [address] [place] [address] PCP - General 01/19/25 Sary Brannon APRN [address] [place] [address] [address] [place] [address] Referring Physician Gastroenterology 01/07/25 documented as of this encounter
--- OUTSIDE RECORDS SUMMARY | 2025-03-16 09:23 | XMS_ITS | Encounter Summary ---
Author Organization Healthcare Address [address] [place] [address] Care Team Providers Care Vending Stand Supervisor Name Role Phone Larry Bedolla MD Primary Care Provider + [phone] Sary Brannon APRN Unavailable [phone] Monika Hernandez APRN Primary Care Provider + [phone] Encounter Details Date Type Department Care Team (Late st Contact Info) Description 12/07/2024 Orders Only External Location [address] [place] [address] Provider, External Social History Tobacco Use Types [...] EDT Appointment [facility] Radiology [address] [place] [address] 03/22/2025 9:00 AM EDT Clinical Support [facility] [address] [facility] [address] [place] [address] 03/22/2025 10:30 AM EDT Office Visit [facility] [address] [place] [address] Geronimo Tran MD [address] [place] [address] documented as of this encounter Procedures Procedure [...] documented as of this encounter Care Teams Vending Stand Supervisor Relationship Specialty Start Date End Date Larry Bedolla MD [address] [place] [address] PCP - General 12/08/20 01/18/25 Monika Hernandez APRN [address] [place] [address] PCP - General 01/19/25 Sary Brannon APRN 1210 [facility] [address] [place] [address] Referring Physician Gastroenterology 01/07/25 documented as of this encounter
--- OUTSIDE RECORDS SUMMARY | 2025-03-16 09:23 | XMS_ITS | Encounter Summary ---
Author Organization Healthcare Address [address] [place] [address] Care Team Providers Care Hydroelectric Machinery Mechanic Name Role Phone Larry Bedolla MD Primary Care Provider + [phone] Sary Brannon APRN Unavailable [phone] Monika Hernandze APRN Primary Care Provider + [phone] Encounter Details Date Type Department Care Team (Late st Contact Info) Description 12/10/2024 Orders Only External Location [address] [place] [address] Provider, External Social History Tobacco Use Types [...] Appointment [facility] Radiology [address] [place] [address] 03/22/2025 9:00 AM EDT Clinical Support [facility] [address] [facility] [address] [place] [address] 03/22/2025 10:30 AM EDT Office Visit [facility] [address] [place] [address] Geronimo Tran MD [address] [place] [address] documented as of this encounter Procedures Procedure [...] documented as of this encounter Care Teams Hydroelectric Machinery Mechanic Relationship Specialty Start Date End Date Larry Bedolla MD [address] [place] [address] PCP - General 12/08/20 01/18/25 Monika Hernandez APRN [address] [place] [address] PCP - General 01/19/25 Sary Brannon APRN 1210 [facility] [address] [place] [address] Referring Physician Gastroenterology 01/07/25 documented as of this encounter
--- OUTSIDE RECORDS SUMMARY | 2025-03-16 09:23 | XMS_ITS | Encounter Summary ---
Author Organization Healthcare Address [address] [place] [address] Care Team Providers Care Grass Farmer Name Role Phone Larry Bedolla MD Primary Care Provider + [phone] Sary Brannon APRN Unavailable [phone] Monika Hernandez APRN Primary Care Provider + [phone] Encounter Details Date Type Department Care Team (Late st Contact Info) Description 10/26/2024 Orders Only External Location [address] [place] [address] Provider, External Social History Tobacco Use Types [...] EDT Appointment [facility] Radiology [address] [place] [address] 03/22/2025 9:00 AM EDT Clinical Support [facility] [address] [facility] [address] [place] [address] 03/22/2025 10:30 AM EDT Office Visit [facility] [address] [place] [address] Geronimo Tran MD [address] [place] [address] documented as of this encounter Procedures Procedure [...] documented as of this encounter Care Teams Grass Farmer Relationship Specialty Start Date End Date Larry Bedolla MD [address] [place] [address] PCP - General 12/08/20 01/18/25 Monika Hernandez APRN [address] [place] [address] PCP - General 01/19/25 Sary Brannon APRN 1210 [facility] [address] [place] [address] Referring Physician Gastroenterology 01/07/25 documented as of this encounter
--- OUTSIDE RECORDS SUMMARY | 2025-03-16 09:23 | XMS_ITS | Clinical Summary ---
[facility] Address [address] [place] [address] Care Team Providers Care Millinery Blocker Name Role Phone Sherri Adkins APRN Primary [...] VACCINE 04/27/2025 Insurance [employer] Care Teams Millinery Blocker Relationship Specialty Start Date End Date Sherri Adkins APRN [address] [place] [address] PCP - General Family Medicine 03/12/16
--- OUTSIDE RECORDS SUMMARY | 2025-03-16 09:23 | XMS_ITS | Encounter Summary ---
Author Organization [facility] Address [address] [place] [address] Care Team Providers Care Logistical Engineer Name Role Phone Sary Brannon ÁNGEL Unavailable [phone] Monika Hernandez APRN Primary Care Provider [phone] Reason for Referral * Consultation (Routine) - Closed Specialty Diagnoses / Procedures Referred By Mayela may Referred To Contact Transplant Diagnoses End-stage liver disease (CMS/HCC) Edil Kiran MD [address] [address] Phone: tel: fax: [facility] [place] [address] [address] Phone: tel: fax: Referral ID Status Reason Start Date Expiration Date V isits Requested Visits Authorized [id number] Closed Specialty Services Required 01/19/2025 07/21/2026 1 1 Reason for Visit * Reason Comments Appointment scheduling Encounter Details Date Type Department Care Team ([facility] Contact Info) Description 01/19/2025 Telephone [facility] [place] [address] [address] [place] [address] Appointment (scheduling) Social History Tobacco Use Types [...] EDT Appointment [facility] Radiology [address] [place] [address] 03/22/2025 9:00 AM EDT Clinical Support [facility] [place] [address] [place] [facility] [address] [place] [address] 03/22/2025 10:30 AM EDT Office Visit [facility] [place] [address] [facility] [address] [place] [address] Geronimo Tran MD [address] [facility] [address] [place] [address] Scheduled Orders Name Type Priority Associated Diagnoses [...] Antibody IgG (02/22/2025 7:18 AM EDT) Pathologist [facility] Hepatitis A Antibody IgG Positive(A ) Negative 02/22/2025 8:44 AM EDT [facility] Blood Venous blood specimen / Unknown Venipuncture / Unknown 02/22/2025 7:18 AM EDT 02/22/2025 7:48 AM EDT Edil Kiran MD LAB BLOOD ORDERABLES Final Resul t Performing Organization Address City/[facility] Co de Phone Number [facility] [address] [place] [address] * HEPATITIS B SURFACE ANTIBODY, QUANTITATIVE (02/22/2025 7:18 AM EDT) Pathologist [facility] Hepatitis B Surface Antibody, Quantitative <8.00 NonReactiv e: <8, Grayzone: 8 - <12, Reactive: >= 12 mIU/mL 02/22/2025 8:44 AM EDT [facility] Comment: Nonreactive. Individual is considered not immune to HBV infection. Blood Venous blood specimen / Unknown Venipuncture / Unknown 02/22/2025 7:18 AM EDT 02/22/2025 7:48 AM EDT us Edil Kiran MD LAB BLOOD ORDERABLES Final Resul t Performing Organization Address City/[facility] Co de Phone Number [facility] [address] [place] [address] * Hepatitis B Surface Antigen (02/22/2025 7:18 AM EDT) Pathologist [facility] Hepatitis B Surf Antigen Negative Negative 02/22/2025 8:44 AM EDT [facility] Blood Venous blood specimen / Unknown Venipuncture / Unknown 02/22/2025 7:18 AM EDT 02/22/2025 7:48 AM EDT us Edil Kiran MD LAB BLOOD ORDERABLES Final Resul t Performing Organization Address [facility] Co de Phone Number [facility] [address] [place] [address] * Hepatitis C Antibody (02/22/2025 7:18 AM EDT) Hepatitis C Antibody Negative Negative 02/22/2025 8:29 AM EDT [facility] Blood Venous blood specimen / Unknown Venipuncture / Unknown 02/22/2025 7:18 AM EDT 02/22/2025 7:48 AM EDT Edil Kiran MD LAB BLOOD ORDERABLES Final Resul t Performing Organization Address [facility] Phone Number [facility] [address] [place] [address] * Nicotine Cotinine Metabolite (02/22/2025 7:18 AM EDT) Pathologist [facility] NICOTINE <5 <5 ng/mL 02/24/2025 2:3 4 PM EDT [facility] Cotinine <5 <5 ng/mL 02/24/2025 2:3 4 PM EDT [facility] Blood Venous blood specimen / Unknown Venipuncture / Unknown 02/22/2025 7:18 AM EDT 02/22/2025 7:46 AM EDT Narrative [facility] - 02/24/2025 2:34 PM EDT Testing performed by LC-MS/MS at the [facility] Special [facility]Toxicology [facility]. This test was developed and its performance characteristics determined by [facility]. This assay has not been cleared by the FDA. The laboratory is regulated under CLIA as qualified to perform high-complexity testing. This test is used for clinical purposes. us Edil Kiran MD LAB BLOOD ORDERABLES Final Resul t Performing Organization Address [facility] Co de Phone Number [facility] [address] [place] [address] * (ABNORMAL) Protime-INR (02/22/2025 7:18 AM EDT) Prothrombin Time 18.7(H) 12.0 - 14.3 sec LAB COAGULATION METHOD 02/22/2025 8:04 AM EDT [facility] INR 1.6(H) 0.9 - 1.1 LAB COAGULATION METHOD 02/22/2025 8:04 AM EDT [facility] Blood Venous blood specimen / Unknown Venipuncture / Unknown 02/22/2025 7:18 AM EDT 02/22/2025 7:46 AM EDT Narrative [facility] - 02/22/2025 8:04 AM EDT OPTIMAL INR RANGES FOR PATIENT ON ORAL ANTICOAGULANT THERAPY Prevention of venous thromboembolism INR 2.0 to 3.0 In patients with heart disease: Atrial fibrillation INR 2.0 to 3.0 Valvular heart disease INR 2.0 to 3.0 Tissue heart valves INR 2.0 to 3.0 Mechanical prosthetic valves INR 2.5 to 3.5 Prevention of recurrent NV INR 2.5 to 3.5 Edil Kiran MD LAB BLOOD ORDERABLES Final Resul t Performing Organization Address [facility] Co de Phone Number [facility] [address] [place] [address] * (ABNORMAL) Comprehensive metabolic panel (02/22/2025 7:18 AM EDT) Glucose, Plasma 283(H) 74 - 99 mg/dL 02/22/2025 8:16 AM EDT [facility] BUN, Plasma 30(H) 8 - 23 mg/dL 02/22/2025 8:16 AM EDT [facility] Creatinine, Plasma 2.54(H) 0.60 - 1.10 mg/dL 02/22/2025 8:16 AM EDT [facility] BUN/Creatinine Ratio 12 02/22/2025 8:16 AM EDT [facility] Sodium, Plasma 137 136 - 145 mmol/L 02/22/2025 8:16 AM EDT [facility] Potassium, Plasma 4.3 3.6 - 4.9 mmol/L 02/22/2025 8:16 AM EDT [facility] Chloride, Plasma 105 97 - 107 mmol/L 02/22/2025 8:16 AM EDT [facility] CO2, Plasma 24 22 - 29 mmol/L 02/22/2025 8:16 AM EDT [facility] Anion Gap 8 6 - 16 mmol/L 02/22/2025 8:16 AM EDT [facility] Total Calcium, Plasma 8.6(L) 8.9 - 10.2 mg/dL 02/22/2025 8:16 AM EDT [facility] Total Protein 7.2 6.3 - 7.9 g/dL 02/22/2025 8:16 AM EDT [facility] Albumin, Plasma 2.9(L) 3.5 - 5.2 g/dL 02/22/2025 8:16 AM EDT [facility] AST, Plasma 37(H) 10 - 35 U/L 02/22/2025 8:16 AM EDT [facility] ALT, Plasma 15 10 - 35 U/L 02/22/2025 8:16 AM EDT [facility] Alkaline Phosphatase, Plasma 121 46 - 142 U/L 02/22/2025 8:16 AM EDT [facility] Total Bilirubin, Plasma 0.9 0.2 - 1.1 mg/dL 02/22/2025 8:16 AM EDT [facility] eGFRcr 20.9 mL/min/1.7 3m*2 02/22/2025 8:16 AM EDT [facility] Comment:Reported eGFRcr in m L/min/1.73m2 is based the CKD-EPI 2020 equation that does not use a race coefficient. Blood Venous blood specimen / Unknown Venipuncture / Unknown 02/22/2025 7:18 AM EDT 02/22/2025 7:47 AM EDT us Edil Kiran MD LAB BLOOD ORDERABLES Final Resul t [facility] [address] [place] [address] * (ABNORMAL) Hemogram (CBC) (02/22/2025 7:18 AM EDT) WBC Count 2.35(L) 3.70 - 10.30 10*3/uL LAB HEMATOLOGY METHOD 02/22/2025 9:33 AM EDT [facility] RBC Count 3.33(L) 3.90 - 5.20 10*6/uL LAB HEMATOLOGY METHOD 02/22/2025 9:33 AM EDT [facility] HGB 10.2(L) 11.2 - 15.7 g/dL LAB HEMATOLOGY METHOD 02/22/2025 9:33 AM EDT [facility] HCT 31.8(L) 34.0 - 45.0 % LAB HEMATOLOGY METHOD 02/22/2025 9:33 AM EDT [facility] Platelet Count 75(L) 155 - 369 10*3/uL LAB HEMATOLOGY METHOD 02/22/2025 9:33 AM EDT [facility] MCV 96 79 - 98 fL LAB HEMATOLOGY METHOD 02/22/2025 9:33 AM EDT [facility] MCH 30.6 26.0 - 32.0 pg LAB HEMATOLOGY METHOD 02/22/2025 9:33 AM EDT [facility] MCHC 32.1 30.7 - 35.5 g/dL LAB HEMATOLOGY METHOD 02/22/2025 9:33 AM EDT [facility] RDW 15.7(H) 11.5 - 14.5 % LAB HEMATOLOGY METHOD 02/22/2025 9:33 AM EDT [facility] MPV 10.5 8.8 - 12.5 fL LAB HEMATOLOGY METHOD 02/22/2025 9:33 AM EDT [facility] nRBC 0.0 <=0.0 per 100 WBCs LAB HEMATOLOGY METHOD 02/22/2025 9:33 AM EDT [facility] Blood Venous blood specimen / Unknown Venipuncture / Unknown 02/22/2025 7:18 AM EDT 02/22/2025 7:41 AM EDT us Edil Kiran MD LAB BLOOD ORDERABLES Final Resul t [facility] [address] [place] [address] * Alpha fetoprotein, serum (02/22/2025 7:18 AM EDT) Alpha Fetoprotein, Serum <2.3 <10.0 ng/mL 02/22/2025 8:25 AM EDT [facility] Blood Venous blood specimen / Unknown Venipuncture / Unknown 02/22/2025 7:18 AM EDT 02/22/2025 7:48 AM EDT Narrative [facility] - 02/22/2025 8:25 AM EDT Performed by [employer] electrochemiluminescent immunoassay which is traceable to the [facility] AFP IRP WHO Reference standard 72/255. Results obtained with different test methods or kits cannot be used interchangeably. Edil Kiran MD LAB BLOOD ORDERABLES Final Resul t Performing Organization Address [facility] Co de Phone Number [facility] [address] [place] [address] * ABO/Rh (02/22/2025 7:18 AM EDT) ABO/Rh O Positive 02/22/2025 7:14 AM EDT BLOOD [facility] Blood Venous blood specimen / Unknown Venipuncture / Unknown 02/22/2025 7:18 AM EDT 02/22/2025 7:46 AM EDT Edil Kiran MD LAB BLOOD BANK TEST ORDERABLES F inal Result Performing Organization Address [facility] Co de Phone Number BLOOD BANK [address] [place] [address] documented in this encounter Visit Diagnoses Diagnosis [...] documented as of this encounter Care Teams Logistical Engineer Relationship Specialty Start Date End Date Monika Hernandez APRN [address] [facility] [place] [address] PCP - General 01/19/25 Sary Brannon APRN [address] [facility] [address] [place], [place] [address] Referring Physician Gastroenterology 01/07/25 documented as of this encounter
--- OUTSIDE RECORDS SUMMARY | 2025-03-16 09:23 | XMS_ITS | Encounter Summary ---
Author Organization Healthcare Address [address] [place] [address] Care Team Providers Care Mixer Diamond Powder Name Role Phone Larry Bedolla MD Primary Care Provider [phone] Sary Brannon APRN Unavailable [phone] Monika Hernandez APRN Primary Care Provider [phone] Reason for Referral * Consultation (Routine) - Closed Specialty Diagnoses / Procedures Referred By Mayela may Referred To Contact Hepatology Diagnoses Bilious vomiting with nausea Anticentromere antibodies present Thrombopenia (CMS/HCC) Stage 3 hepatic fibrosis Raul Kincaid PA [facility] [place] [address] Phone: tel: fax: Referral ID Status Reason Start Date Expiration Date V isits Requested Visits Authorized [id number] Closed Specialty Services Required 09/27/2021 03/29/2023 1 1 Encounter Details Date Type Department Care Team (Late st Contact Info) Description 09/27/2021 Community [facility] [address] [place] [address] Raul Kincaid PA [address] [place] [id number] Bilious vomiting with nausea (Primary Dx); [...] EDT Appointment [facility] Radiology [address] [place] [address] 03/22/2025 9:00 AM EDT Clinical Support [facility] [place] [address] [facility] [address] [place] [address] 03/22/2025 10:30 AM EDT Office Visit [facility] [place] [address] [facility] [address] [place] [address] Geronimo Tran MD [address] [facility] [address] [place] [address] Scheduled Referrals Name Type Priority Associated Diagnoses [...] fibrosis documented in this encounter Care Teams Mixer Diamond Powder Relationship Specialty Start Date End Date Larry Bedolla MD [address] [place] [address] PCP - General 12/08/20 01/18/25 Monika Hernandez APRN [address] [place] [address] PCP - General 01/19/25 Sary Brannon APRN [address] [place] [address] [address] [place] [address] Referring Physician Gastroenterology 01/07/25 documented as of this encounter
--- OUTSIDE RECORDS SUMMARY | 2025-03-16 09:24 | XMS_ITS | Clinical Summary ---
Author Organization Healthcare Address [address] [place] [address] Care Team Providers Care Solid Waste Landfill Technician Name Role Phone Sary Brannon MOTOR MAN Unavailable [phone] Monika Hernandez APRN Primary Care Provider [phone] Allergies No known active allergies Medications bisoprolol [...] 3 INJECTIONS DAILY 11/11/19 Active HYDROcodone-acetam inophen (Cuervo) 10-325 MG tablet 10/24/19 Active spironolactone (Aldactone) 25 MG tablet Take 0.5 tablets by mouth daily. 10/03/19 Active furosemide (Lasix) 40 MG tablet Take by mouth 2 (two) times a day. 10/03/19 Active Insulin Lispro (HUMALOG IJ) Inject as directed. Active dapagliflozin (Farxiga) 5 MG tabletIndications: CKD (chronic kidney disease) stage 2, GFR 60-89 ml/min,Microalbumi ruperto,Coronary artery disease involving [place] heart with angina pectoris and documented spasm, [...] Description 02/22/2025 9:20 AM EDT Office Visit [facility] [address] [address] Ollie Calvo MD End-stage liver disease (CMS/HCC) (Primary Dx); 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); Portal hypertension (CMS/HCC); Other ascites; GERMÁN (acute kidney injury) (CMS/HCC) 02/22/2025 Travel 02/17/2025 Telephone [facility] [address] [address] Jessica Simms Appointment (Confirmation and reminders) 01/19/2025 Telephone [facility] [place] [phone] [address] Jessica Simms Appointment (scheduling) 01/07/2025 Telephone [facility] [address] [place] [address] Kasey Dye Referral - Liver Txp 01/03/2025 Community Orders Community Practice [address] [place] [address] Sary Brannon APRN 12/31/2024 Orders Only External Location [address] [place] [address] Monika Hernandez APRN from Last 3 Months Immunizations Immunization [...] Appointment [facility] [address] [place] [address] 03/22/2025 9:00 AM EDT Clinical Support [facility] [address] [place] [address] 03/22/2025 10:30 AM EDT Office Visit [facility] [address] [place] [address] Geronimo Tran MD [address] [place] [address] Health Maintenance Due Date Last Done Comments [facility]-HIV Screening 1960 [facility]-Medicare Annual Wellness (AWV) 1960 [facility]-Infant/Child/Adol SDOH Screenings [...] 06/04/2022 01/02/2022, 11/21/2021 [facility]-Depression Screening 01/02/2023 01/02/2022 [id number] Vaccine (4 - season) 2024 05/13/2021, 04/15/2021, [...] PLASMA Routine 12/14/2024 SODIUM, PLASMA Routine 12/14/2024 HEMOGLOBIN A1C Routine 01/24/2016 1:47 PM EDT from Last 3 Months or Most Recently Relevant to Health Maintenance Results * HEPATITIS B SURFACE ANTIBODY, QUANTITATIVE (02/22/2025 7:18 AM EDT) Hepatitis B Surface Antibody, Quantitative <8.00 NonReactiv e: <8, Grayzone: 8 - <12, Reactive: >= 12 mIU/mL 02/22/2025 8:44 AM EDT [facility] Comment: Nonreactive. Individual is considered not immune to HBV infection. Blood Venous blood specimen / Unknown Venipuncture / Unknown 02/22/2025 7:18 AM EDT 02/22/2025 7:48 AM EDT Edil Kiran MD LAB BLOOD ORDERABLES Final Resul t Performing Organization Address City[facility] Co de Phone Number [facility] [address] [place] [address] * Alpha fetoprotein, serum (02/22/2025 7:18 AM EDT) Alpha Fetoprotein, Serum <2.3 <10.0 ng/mL 02/22/2025 8:25 AM EDT [facility] Blood Venous blood specimen / Unknown Venipuncture / Unknown 02/22/2025 7:18 AM EDT 02/22/2025 7:48 AM EDT Narrative [facility] - 02/22/2025 8:25 AM EDT Performed by Stone electrochemiluminescent immunoassay which is traceable to the 1st AFP IRP WHO Reference standard 72/255. Results obtained with different test methods or kits cannot be used interchangeably. Edil Kiran MD LAB BLOOD ORDERABLES Final Resul t Performing Organization Address City/[facility]/ZIP Co de Phone Number [facility] [address] [place] [address] * (ABNORMAL) Hepatitis A Antibody IgG (02/22/2025 7:18 AM EDT) Hepatitis A Antibody IgG Positive(A ) Negative 02/22/2025 8:44 AM EDT [facility] Blood Venous blood specimen / Unknown Venipuncture / Unknown 02/22/2025 7:18 AM EDT 02/22/2025 7:48 AM EDT Edil Kiran MD LAB BLOOD ORDERABLES Final Resul t [facility] [address] [place] [address] * Hepatitis C Antibody (02/22/2025 7:18 AM EDT) Pathologist [facility] Hepatitis C Antibody Negative Negative 02/22/2025 8:29 AM EDT [facility] Blood Venous blood specimen / Unknown Venipuncture / Unknown 02/22/2025 7:18 AM EDT 02/22/2025 7:48 AM EDT Edil Kiran MD LAB BLOOD ORDERABLES Final Resul t Performing Organization Address [facility] Co de Phone Number [facility] [address] [place] [address] * Nicotine Cotinine Metabolite (02/22/2025 7:18 AM EDT) Pathologist [facility] NICOTINE <5 <5 ng/mL 02/24/2025 2:3 4 PM EDT [facility] Cotinine <5 <5 ng/mL 02/24/2025 2:3 4 PM EDT [facility] Blood Venous blood specimen / Unknown Venipuncture / Unknown 02/22/2025 7:18 AM EDT 02/22/2025 7:46 AM EDT Narrative [facility] - 02/24/2025 2:34 PM EDT Testing performed by LC-MS/MS at the [facility]. This test was developed and its performance characteristics determined by [facility]. This assay has not been cleared by the FDA. The laboratory is regulated under CLIA as qualified to perform high-complexity testing. This test is used for clinical purposes. us Edil Kiran MD LAB BLOOD ORDERABLES Final Resul t Performing Organization Address [facility] de Phone Number [facility] [address] [place] [address] * ABO/Rh (02/22/2025 7:18 AM EDT) ABO/Rh O Positive 02/22/2025 7:14 AM EDT BLO[facility] Blood Venous blood specimen / Unknown Venipuncture / Unknown 02/22/2025 7:18 AM EDT 02/22/2025 7:46 AM EDT Edil Kiran MD LAB BLOOD BANK TEST ORDERABLES F inal Result Performing Organization Address [facility] Phone Number BLOOD BANK [address] [place] [address] * Hepatitis B Surface Antigen (02/22/2025 7:18 AM EDT) Hepatitis B Surf Antigen Negative Negative 02/22/2025 8:44 AM EDT [facility] Blood Venous blood specimen / Unknown Venipuncture / Unknown 02/22/2025 7:18 AM EDT 02/22/2025 7:48 AM EDT Edil Kiran MD LAB BLOOD ORDERABLES Final Resul t Performing Organization Address [facility] de Phone Number [facility] [address] [place] [address] * (ABNORMAL) Protime-INR (02/22/2025 7:18 AM EDT) Prothrombin Time 18.7(H) 12.0 - 14.3 sec LAB COAGULATION METHOD 02/22/2025 8:04 AM EDT [facility] INR 1.6(H) 0.9 - 1.1 LAB COAGULATION METHOD 02/22/2025 8:04 AM EDT [facility] Blood Venous blood specimen / Unknown Venipuncture / Unknown 02/22/2025 7:18 AM EDT 02/22/2025 7:46 AM EDT Narrative [facility] - 02/22/2025 8:04 AM EDT OPTIMAL INR RANGES FOR PATIENT ON ORAL ANTICOAGULANT THERAPY Prevention of venous thromboembolism INR 2.0 to 3.0 In patients with heart disease: Atrial fibrillation INR 2.0 to 3.0 Valvular heart disease INR 2.0 to 3.0 Tissue heart valves INR 2.0 to 3.0 Mechanical prosthetic valves INR 2.5 to 3.5 Prevention of recurrent HI INR 2.5 to 3.5 us Edil Kiran MD LAB BLOOD ORDERABLES Final Resul t [facility] [address] [place] [address] * (ABNORMAL) Hemogram (CBC) (02/22/2025 7:18 AM EDT) WBC Count 2.35(L) 3.70 - 10.30 10*3/uL LAB HEMATOLOGY METHOD 02/22/2025 9:33 AM EDT [facility] RBC Count 3.33(L) 3.90 - 5.20 10*6/uL LAB HEMATOLOGY METHOD 02/22/2025 9:33 AM EDT [facility] HGB 10.2(L) 11.2 - 15.7 g/dL LAB HEMATOLOGY METHOD 02/22/2025 9:33 AM EDT [facility] HCT 31.8(L) 34.0 - 45.0 % LAB HEMATOLOGY METHOD 02/22/2025 9:33 AM EDT [facility] Platelet Count 75(L) 155 - 369 10*3/uL LAB HEMATOLOGY METHOD 02/22/2025 9:33 AM EDT [facility] MCV 96 79 - 98 fL LAB HEMATOLOGY METHOD 02/22/2025 9:33 AM EDT [facility] MCH 30.6 26.0 - 32.0 pg LAB HEMATOLOGY METHOD 02/22/2025 9:33 AM EDT [facility] MCHC 32.1 30.7 - 35.5 g/dL LAB HEMATOLOGY METHOD 02/22/2025 9:33 AM EDT [facility] RDW 15.7(H) 11.5 - 14.5 % LAB HEMATOLOGY METHOD 02/22/2025 9:33 AM EDT [facility] MPV 10.5 8.8 - 12.5 fL LAB HEMATOLOGY METHOD 02/22/2025 9:33 AM EDT [facility] nRBC 0.0 <=0.0 per 100 WBCs LAB HEMATOLOGY METHOD 02/22/2025 9:33 AM EDT [facility] Blood Venous blood specimen / Unknown Venipuncture / Unknown 02/22/2025 7:18 AM EDT 02/22/2025 7:41 AM EDT us Edil Kiran MD LAB BLOOD ORDERABLES Final Resul t [facility] [address] [place] [address] * (ABNORMAL) Comprehensive metabolic panel (02/22/2025 7:18 AM EDT) Glucose, Plasma 283(H) 74 - 99 mg/dL 02/22/2025 8:16 AM EDT [facility] BUN, Plasma 30(H) 8 - 23 mg/dL 02/22/2025 8:16 AM EDT [facility] Creatinine, Plasma 2.54(H) 0.60 - 1.10 mg/dL 02/22/2025 8:16 AM EDT [facility] BUN/Creatinine Ratio 12 02/22/2025 8:16 AM EDT [facility] Sodium, Plasma 137 136 - 145 mmol/L 02/22/2025 8:16 AM EDT [facility] Potassium, Plasma 4.3 3.6 - 4.9 mmol/L 02/22/2025 8:16 AM EDT [facility] Chloride, Plasma 105 97 - 107 mmol/L 02/22/2025 8:16 AM EDT [facility] CO2, Plasma 24 22 - 29 mmol/L 02/22/2025 8:16 AM EDT [facility] Anion Gap 8 6 - 16 mmol/L 02/22/2025 8:16 AM EDT [facility] Total Calcium, Plasma 8.6(L) 8.9 - 10.2 mg/dL 02/22/2025 8:16 AM EDT [facility] Total Protein 7.2 6.3 - 7.9 g/dL 02/22/2025 8:16 AM EDT [facility] Albumin, Plasma 2.9(L) 3.5 - 5.2 g/dL 02/22/2025 8:16 AM EDT [facility] AST, Plasma 37(H) 10 - 35 U/L 02/22/2025 8:16 AM EDT [facility] ALT, Plasma 15 10 - 35 U/L 02/22/2025 8:16 AM EDT [facility] Alkaline Phosphatase, Plasma 121 46 - 142 U/L 02/22/2025 8:16 AM EDT [facility] Total Bilirubin, Plasma 0.9 0.2 - 1.1 mg/dL 02/22/2025 8:16 AM EDT [facility] eGFRcr 20.9 mL/min/1.7 3m*2 02/22/2025 8:16 AM EDT [facility] Comment:Reported eGFRcr in m L/min/1.73m2 is based the CKD-EPI 2020 equation that does not use a race coefficient. Blood Venous blood specimen / Unknown Venipuncture / Unknown 02/22/2025 7:18 AM EDT 02/22/2025 7:47 AM EDT us Edil Kiran MD LAB BLOOD ORDERABLES Final Resul t [facility] [address] [place] [address] * Creatinine, Plasma (01/03/2025) Only the most recent of2 resultswithin the time period is included. External Creatinine Blood 3.00 mg/dL Blood Venous blood specimen / Unknown 01/03/2025 us Historical Provider LAB BLOOD ORDERABLES Final R esult * Sodium, Plasma (01/03/2025) Only the most recent of2 resultswithin the time period is included. External Sodium 144 mmol/L Blood Venous blood specimen / Unknown 01/03/2025 Result [facility] Provider LAB BLOOD ORDERABLES Final R esult * Albumin, Plasma (01/03/2025) Only the most recent of2 resultswithin the time period is included. External Albumin 3.6 g/dL Blood Venous blood specimen / Unknown 01/03/2025 Historical Provider LAB BLOOD ORDERABLES Final R esult * US OUTSIDE IMAGES (12/31/2024 7:33 AM EDT) Anatomical Region Laterality Modality Ultrasound 12/31/2024 7:33 AM EDT Result [facility] Monika Hernandez APRN IMG US PROCEDURES Final Result * Total Bilirubin, Plasma (12/14/2024) External Bilirubin Total 0.9 mg/dL Blood Venous blood specimen / Unknown 12/14/2024 Result [facility] Provider LAB BLOOD ORDERABLES Final R esult * (ABNORMAL) Hemoglobin A1c (01/24/2016 1:47 PM [...] PM EDT 01/24/2016 6:17 PM EDT Result [facility] Sherri Adkins APRN LAB BLOOD ORDERABLES Final Result SUNQUEST from Last 3 Months or Most Recently Relevant to Health Maintenance Insurance [employer] Care Teams Solid Waste Landfill Technician Relationship Specialty Start Date End Date Monika Hernandez APRN [address] [place] [address] PCP - General 01/19/25 Sary Brannon APRN [address] [facility] [address] [place] [address] Referring Physician Gastroenterology 01/07/25
--- NOTE | 2025-03-16 09:54 | US_ITS ---
FINAL REPORT CLINICAL HISTORY: R18.8 - Other ascites 6700 ML REMOVED - LEFT SIDE -- PILAR VALDIVIA FINDINGS: ULTRASOUND-GUIDED PARACENTESIS HISTORY: Ascites . TECHNIQUE: Informed consent was obtained from the patient. Timeout procedure was performed prior to beginning. Appropriate pocket of fluid was localized in the left lower quadrant. The patient was prepped and draped in routine fashion over the left abdomen. Local anesthesia was achieved with 1% lidocaine. Using imaging guidance with images acquired, an 18-gauge sheath needle was directed into the peritoneal fluid. Approximately 6.7 liters of yellow serous fluid was aspirated. No fluid was sent for laboratory analysis. IMPRESSION: Successful ultrasound guided therapeutic paracentesis with 6.7 liters of fluid removed. Reviewed, Interpreted and Dictated by Dre Keenan MD Transcribed by Haven Henderson PA-C Authenticated and [facility]
[2025-03-16 11:01] LABS: Creatinine,Serum 1.80 mg/dl (0.52-1.04); Estimated Glomerular Filt Rate 29 ml/min (>60); GFR (African American) 34 ML/MIN (>60)
[2025-03-16 12:20] VITALS: BP 159/77; PULSE 92; RESP 18; O2SAT 99
[2025-03-16] MEDS: ALBUMIN HUMAN 12.5 GM/50 ML BAG IV ×4 (12:20→13:39)
[2025-03-16 14:05] VITALS: BP 142/86; PULSE 87; RESP 18; O2SAT 99
== END 2025-03-16 14:05 | disposition home or self-care (01) ==
LOC: RAD 09:21 → INF 11:57
PROVIDERS: PCP Family Medicine; Visit Provider Nurse Practitioner Family
DX: K75.81 Nonalcoholic steatohepatitis (NASH) (principal); K70.31 Alcoholic cirrhosis of liver with ascites
CPT/HCPCS: 49083; 82565; 96365; P9047

== ENCOUNTER 2025-03-24 09:49 | Outpatient (CLI) | payer MEDICARE, MEDICAID, SELFPAY ==
--- OUTSIDE RECORDS SUMMARY | 2025-02-22 09:20 | XMS_ITS | Encounter Summary ---
Author Organization Healthcare Address [address] [place] [address] Care Team Providers Care Lab Aid Name Role Phone Sary Brannon SECURITIES SUPERVISOR Unavailable [phone] Monika Hernandez APRN Primary Care Provider [phone] Reason for Referral * Consultation (Routine) - Authorized Specialty Diagnoses / Procedures Referred By Contac t Referred To Contact Physical Therapy Diagnoses End-stage liver disease (CMS/HCC) Ollie Calvo MD [address] [address] Phone: tel: fax: Referral ID Status Reason Start Date Expiration Date Visits Requested Visits Authorized [id number] Authorized Consult and Treat 02/22/2025 08/24/2026 1 1 * Imaging (Routine) - Authorized Specialty Diagnoses / Procedures Referred By Contac t Referred To Contact Diagnoses End-stage liver disease (CMS/HCC) Procedures US Abdomen Ollie Calvo MD [address] [address] Phone: tel: fax: Referral ID Status Reason Start Date Expiration Date V isits Requested Visits Authorized [id number] Authorized 02/22/2025 08/24/2026 1 1 * Imaging (Routine) - Pending Review Specialty Diagnoses / Procedures Referred By Contmazin t Referred To Contact Gastroenterology Diagnoses End-stage liver disease (CMS/HCC) Procedures EGD Ollie Calvo MD [address] [address] Phone: tel: fax: Referral ID Status Reason Start Date Expiration Date Visits Requested Visits Authorized [id number] Pending Review Specialty Services Required 02/22/2025 08/24/2026 1 1 Reason for Visit * Reason Comments Pre-Liver Txp Follow-up * Consultation (Routine) - Closed Specialty Diagnoses / Procedures Referred By Mayela t Referred To Contact Transplant Diagnoses End-stage liver disease (CMS/HCC) Edil Kiran MD [address] [facility] [address] [place] [address] Phone: tel: fax: [facility] [place] [address] [address] Phone: tel: fax: Referral ID Status Reason Start Date Expiration Date V isits Requested Visits Authorized [id number] Closed Specialty Services Required 01/19/2025 07/21/2026 1 1 Encounter Details Date Type Department Care Team (Late st Contact Info) Description 02/22/2025 9:20 AM EDT Office Visit [facility] Center [facility] [address] [phone] Ollie Calvo MD [address] [address] End-stage liver disease (CMS/HCC) (Primary [...] Txp Follow-up Edil Kiran MD [address] [address] [facility] Patient is a 64 year old female with a past medical history of decompensated cirrhosis secondary toMASLD. Patient presents today for initial transplant consultation. Patient was initially diagnosed with cirrhosis around 3 years ago. She was hospitalized in [facility] for hepatorenal syndrome and was treated [...] as well. She then followed with her Caving Guide with Holter monitor and Amio was discontinued [...] 8 week repeat Colonoscopy: performed 01/2021 at [facility] with polypectomy (TA). 1 year repeat [...] TO TEST BID, Disp: , Rfl: HYDROcodone-acetaminophen ([place]) 10-325 MG tablet, , Disp: , Rfl: [...] documented as of this encounter Care Teams Lab Aid Relationship Specialty Start Date End Date Monika Hernandez APRN [address] [facility] [place] [address] PCP - General 01/19/25 Sary Brannon APRN [address] [place] [address] Referring Physician Gastroenterology 01/07/25 documented as of this encounter
--- OUTSIDE RECORDS SUMMARY | 2025-03-24 09:55 | XMS_ITS | Referral Summary ---
Author Organization [employer] ([place], [place], [place], [place]) Address [address] [place] [address] Care Team Providers Care Spike Driver Name Role Phone Provider, Not In System [...] your living situation today? I have a [facility] place to live 11/30/2024 Think about the [...] ed In the past 12 months, has rio ack of reliable transportation kept you from [...] Do you speak a language other than [facility] at [facility]? No 11/30/2024 [...] Date/Time Associated Diagnosis Comments HEMOGLOBIN A1C Routine 11/30/2024 8:20 AM EDT from Last 3 Months or Most Recently Relevant to Health Maintenance Results * Hemoglobin A1c (11/30/2024 8:20 AM EDT) Hemoglobin A1C 4.9 4.0 - 5.6 % 11/30/2024 9:17 AM EDT [facility] Comment: Hemoglobin A1C levels are related to mean glucose during the preceding 2-3 months. Less than 7% demonstrates glycemic control in diabetic patients. Hemoglobin AlC % Suggested Diagnosis > or = 6.5 Diabetic 5.7 - 6.4 Prediabetic <5.7 Non-diabetic eAVG Glucose 93.93 70 - 126 mg/dL 11/30/2024 9:17 AM EDT [facility] Blood Venipuncture / Unknown 11/30/2024 8:20 AM EDT 11/30/2024 9:07 AM EDT us Mikhail Hurtado MD LAB BLOOD ORDERABLES Final Resul t [facility] [address] [place] [address], [facility] [phone] from Last 3 Months or Most Recently Relevant to Health Maintenance Insurance [facility] Advance Directives For more information, please contact: [phone] * Full Code (Latest Code Status on File) Date Activated Date Inactivated Comments 11/30/2024 2:06 AM 12/14/2024 6:30 PM Care Teams Spike Driver Relationship Specialty Start Date End Date Provider, Not In System [place] PCP - General 12/14/24
--- OUTSIDE RECORDS SUMMARY | 2025-03-24 09:55 | XMS_ITS | Encounter Summary ---
Author Organization Healthcare Address [address] 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, unspecified vessel or lesion type (CMS/[facility]) Social History Tobacco Use Types Packs/Day [...] (mild) Microalbuminuria Proteinuria 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, unspecified vessel or lesion type (CMS/HCC) documented in this encounter Additional Health Concerns Assessment Noted Time A fall risk assessment has been complete d for the patient 01/02/2022 1:17 PM EDT A Body Mass Index follow-up plan has been documented for the patient 11/13/2022 11:41 AM EDT documented as of this encounter Care Teams Electric Plater Relationship Specialty Start Date End Date Larry Bedolla MD [address] [place] [address] PCP - General 12/08/20 01/18/25 Monika Hernandez APRN [address] [place] [address] PCP - General 01/19/25 Sary Brannon APRN [facility] [address] [place] [address] Referring Physician Gastroenterology 01/07/25 documented as of this encounter
--- OUTSIDE RECORDS SUMMARY | 2025-03-24 09:56 | XMS_ITS | Encounter Summary ---
Author Organization Healthcare Address [address] [place] [address] Care Team Providers Care Locksmith Name Role Phone Larry Bedolla MD Primary Care Provider + [phone] Sary Brannon APRN Unavailable [phone] Monika Hernandez APRN Primary Care Provider + [phone] Encounter Details Date Type Department Care Team (Late st Contact Info) Description 12/06/2024 Orders Only External Location [address] [place] [address] Provider, External Social History Tobacco Use Types [...] documented as of this encounter Care Teams Locksmith Relationship Specialty Start Date End Date Larry Bedolla MD [address] [place] [address] PCP - General 12/08/20 01/18/25 Monika Hernandez APRN [address] [place] [address] PCP - General 01/19/25 Sary Brannon APRN 12[address] [facility] [address] [place] [address] Referring Physician Gastroenterology 01/07/25 documented as of this encounter
--- OUTSIDE RECORDS SUMMARY | 2025-03-24 09:56 | XMS_ITS | Encounter Summary ---
Author Organization Healthcare Address [address] [place] [address] Care Team Providers Care Lpn Cma Name Role Phone Larry Bedolla MD Primary Care Provider + [phone] Sary Brannon APRN Unavailable [phone] Monika Hernandez APRN Primary Care Provider [phone] Encounter Details Date Type Department Care Team (Late st Contact Info) Description 12/31/2024 Orders Only External Location [address] [place] [address] Monika Hernandez APRN [address] [place], [place] [id number] Social History Tobacco Use Types Packs/Day Years [...] Ultrasound 12/31/2024 7:33 AM EDT Monika Hernandez APRN [facility] US PROCEDURES Final Result documented in this encounter Visit Diagnoses Not on filedocumented in this encounter Additional Health Concerns Assessment Noted Time A fall risk assessment has been complete d for the patient 01/02/2022 1:17 PM EDT A Body Mass Index follow-up plan has been documented for the patient 11/13/2022 11:41 AM EDT documented as of this encounter Care Teams Lpn Cma Relationship Specialty Start Date End Date Larry Bedolla MD [address] [place] [address] PCP - General 12/08/20 01/18/25 Monika Hernandez APRN [address] [place] [address] PCP - General 01/19/25 Sary Brannon APRN 1210 [facility] [address] [place] [address] Referring Physician Gastroenterology 01/07/25 documented as of this encounter
--- OUTSIDE RECORDS SUMMARY | 2025-03-24 09:56 | XMS_ITS | Encounter Summary ---
Author Organization Healthcare Address [address] [place] [address] Care Team Providers Care Life Enrichment Assistant Name Role Phone Larry Bedolla MD Primary Care Provider + [phone] Sary Brannon APRN Unavailable [phone] Monika Hernandez APRN Primary Care Provider + [phone] Encounter Details Date Type Department Care Team (Late st Contact Info) Description 12/10/2024 Orders Only External Location [address] [place] [address] Provider, External Social History Tobacco Use Types [...] documented as of this encounter Care Teams Life Enrichment Assistant Relationship Specialty Start Date End Date Larry Bedolla MD [address] [place] [address] PCP - General 12/08/20 01/18/25 Monika Hernandez APRN [address] [place] [address] PCP - General 01/19/25 Sary Brannon APRN 1210 [facility] [address] [place] [address] Referring Physician Gastroenterology 01/07/25 documented as of this encounter
--- OUTSIDE RECORDS SUMMARY | 2025-03-24 09:56 | XMS_ITS | Encounter Summary ---
Author Organization Healthcare Address [address] [place] [address] Care Team Providers Care Body Shop Worker Name Role Phone Larry Bedolla MD Primary Care Provider + [phone] Sary Brannon APRN Unavailable [phone] Monika Hernandez APRN Primary Care Provider + [phone] Encounter Details Date Type Department Care Team (Late st Contact Info) Description 12/02/2024 Orders Only External Location [address] [place] [address] Provider, External Social History Tobacco Use Types [...] as of this encounter Care Teams Body Shop Worker Relationship Specialty Start Date End Date Larry Bedolla MD [address] [place] [address] PCP - General 12/08/20 01/18/25 Monika Hernandez APRN [address] [place] [address] PCP - General 01/19/25 Sary Brannon APRN [address] [place] [address] [address] [place] [address] Referring Physician Gastroenterology 01/07/25 documented as of this encounter
--- OUTSIDE RECORDS SUMMARY | 2025-03-24 09:56 | XMS_ITS | Encounter Summary ---
Author Organization Healthcare Address [address] [place] [address] Care Team Providers Care Laborer Starch Factory Name Role Phone Larry Bedolla MD Primary Care Provider + [phone] Sary Brannon CELL TOWER CLIMBER Unavailable [phone] Monika Hernandez APRN Primary Care Provider [phone] Reason for Visit * Reason Comments Med Refill Encounter Details Date Type Department Care Team (Late st Contact Info) Description [facility]/12[facility] [address] [place] [address] Lina Lowe, CELL TOWER CLIMBER [address] [facility] [address] [place] [address] Social History Tobacco Use Types [...] on filedocumented in this encounter Care Teams Laborer Starch Factory Relationship Specialty Start Date End Date Larry Bedolla MD [address] [place], [place] [id number] PCP - General 12/08/20 01/18/25 Monika Hernandez APRN [address] [place] [address] PCP - General 01/19/25 Sary Brannon APRN 1210 [facility] [address] [place] [address] Referring Physician Gastroenterology 01/07/25 documented as of this encounter
--- OUTSIDE RECORDS SUMMARY | 2025-03-24 09:56 | XMS_ITS | Encounter Summary ---
Author Organization [facility] Address [address] [place] [address] Care Team Providers Care Imaging Scheduler Name Role Phone Sary Brannon MANAGER CORPORATE Unavailable [phone] Monika Hernandez APRN Primary Care Provider + [phone] Reason for Visit * Reason Comments Appointment Confirmation and rem inders Encounter Details Date Type Department Care Team (Late st Contact Info) Description 02/17/2025 Telephone [facility] [address] [place] [address] Jessica Simms [place] [phone] Appointment (Confirmation and reminders) Social History Tobacco [...] documented as of this encounter Care Teams Imaging Scheduler Relationship Specialty Start Date End Date Monika Hernandez APRN [address] [place] [address] PCP - General 01/19/25 Sary Brannon APRN 1210 [facility] [address] [place] [address] Referring Physician Gastroenterology 01/07/25 documented as of this encounter
--- OUTSIDE RECORDS SUMMARY | 2025-03-24 09:56 | XMS_ITS | Encounter Summary ---
Author Organization Healthcare Address [address] [place] [address] Care Team Providers Care Concrete Boom Pump Operator Name Role Phone Larry Bedolla MD Primary Care Provider + [phone] Sary Brannon APRN Unavailable +[phone] Monika Hernandez APRN Primary Care Provider + [phone] Encounter Details Date Type Department Care Team (Late st Contact Info) Description 11/30/2024 Orders Only External Location [address] [place] [address] Provider, External Social History Tobacco Use Types [...] documented as of this encounter Care Teams Concrete Boom Pump Operator Relationship Specialty Start Date End Date Larry Bedolla MD [address] [place] [address] PCP - General 12/08/20 01/18/25 Monika Hernandez APRN [address] [place] [address] PCP - General 01/19/25 Sary Brannon APRN 1210 [facility] [address] [place] [address] Referring Physician Gastroenterology 01/07/25 documented as of this encounter
--- OUTSIDE RECORDS SUMMARY | 2025-03-24 09:56 | XMS_ITS | Encounter Summary ---
Author Organization Healthcare Address [address] [place] [address] Care Team Providers Care Regulatory Auditor Name Role Phone Larry Bedolla MD Primary Care Provider + [phone] Sary Brannon APRN Unavailable +[phone] Monika Hernandez APRN Primary Care Provider + [phone] Encounter Details Date Type Department Care Team (Late st Contact Info) Description 11/29/2024 Orders Only External Location [address] [place] [address] Provider, External Social History Tobacco Use Types [...] documented as of this encounter Care Teams Regulatory Auditor Relationship Specialty Start Date End Date Larry Bedolla MD [address] [place] [address] PCP - General 12/08/20 01/18/25 Monika Hernandez APRN [address] [place] [address] PCP - General 01/19/25 Sary Brannon APRN [address] [place] [address] [address] [place] [address] Referring Physician Gastroenterology 01/07/25 documented as of this encounter
--- OUTSIDE RECORDS SUMMARY | 2025-03-24 09:56 | XMS_ITS | Encounter Summary ---
Author Organization Healthcare Address [address] [place] [address] Care Team Providers Care Regulator Pin Inserter Name Role Phone Larry Bedolla MD Primary Care Provider + [phone] Sary Brannon APRN Unavailable +[phone] Monika Hernandez APRN Primary Care Provider + [phone] Encounter Details Date Type Department Care Team (Late st Contact Info) Description 11/30/2024 Orders Only External Location [address] [place] [address] Provider, External Social History Tobacco Use Types [...] documented as of this encounter Care Teams Regulator Pin Inserter Relationship Specialty Start Date End Date Larry Bedolla MD [address] [place] [address] PCP - General 12/08/20 01/18/25 Monika Hernandez APRN [address] [place] [address] PCP - General 01/19/25 Sary Brannon APRN 1210 [facility] [address] [place] [address] Referring Physician Gastroenterology 01/07/25 documented as of this encounter
--- OUTSIDE RECORDS SUMMARY | 2025-03-24 09:56 | XMS_ITS | Clinical Summary ---
Author Organization [employer] ([place], [place], [place], [place]) Address [address] [place] [address] Care Team Providers Care Food Assembler Name Role Phone Provider, Not In System [...] your living situation today? I have a [facility] place to live 11/30/2024 Think about [...] Do you speak a language other than Albanian at [facility]? No 11/30/2024 Do you want help [...] 05/13/2021, 04/15/2021, 11/08/2020 Medicare IPPE ([facility] to [facility]) [id number] 07/28/2024 Influenza Vaccine (#1) 2025 [...] - 5.6 % 11/30/2024 9:17 AM EDT [facility] Comment: Hemoglobin A1C levels are related to mean glucose during the preceding 2-3 months. Less than 7% demonstrates glycemic control in diabetic patients. Hemoglobin AlC % Suggested Diagnosis > or = 6.5 Diabetic 5.7 - 6.4 Prediabetic <5.7 Non-diabetic eAVG Glucose 93.93 70 - 126 mg/dL 11/30/2024 9:17 AM EDT [facility] Blood Venipuncture / Unknown 11/30/2024 8:20 AM EDT 11/30/2024 9:07 AM EDT Mikhail Hurtado MD LAB BLOOD ORDERABLES Final Resul t [facility] [address] [phone] from Last 3 Months or Most Recently Relevant to Health Maintenance Insurance [facility] Advance Directives For more information, please contact: [phone] * Full Code (Latest Code Status on File) Date Activated Date Inactivated Comments 11/30/2024 2:06 AM 12/14/2024 6:30 PM Care Teams Food Assembler Relationship Specialty Start Date End Date Provider, Not In System [place] PCP - General 12/14/24
--- OUTSIDE RECORDS SUMMARY | 2025-03-24 09:56 | XMS_ITS | Encounter Summary ---
Author Organization Healthcare Address [address] [place] [address] Care Team Providers Care Detective Automobile Section Name Role Phone Larry Bedolla MD Primary Care Provider + [phone] Sary Brannon APRN Unavailable [phone] Monika Hernandez APRN Primary Care Provider + [phone] Encounter Details Date Type Department Care Team (Late st Contact Info) Description 12/03/2024 Orders Only External Location [address] [place] [address] Provider, External Social History Tobacco Use Types [...] documented as of this encounter Care Teams Detective Automobile Section Relationship Specialty Start Date End Date Larry Bedolla MD [address] [place] [address] PCP - General 12/08/20 01/18/25 Monika Hernandez APRN [address] [place] [address] PCP - General 01/19/25 Sary Brannon APRN 1210 [facility] [address] [place] [address] Referring Physician Gastroenterology 01/07/25 documented as of this encounter
--- OUTSIDE RECORDS SUMMARY | 2025-03-24 09:56 | XMS_ITS | Encounter Summary ---
Author Organization Healthcare Address [address] [place] [address] Care Team Providers Care News Wire Photo Operator Name Role Phone Larry Bedolla MD Primary Care Provider + [phone] Sary Brannon APRN Unavailable [phone] Monika Hernandez APRN Primary Care Provider + [phone] Encounter Details Date Type Department Care Team (Late st Contact Info) Description 12/04/2024 Orders Only External Location [address] [place] [address] Provider, External Social History Tobacco Use Types [...] documented as of this encounter Care Teams News Wire Photo Operator Relationship Specialty Start Date End Date Larry Bedolla MD [address] [place] [address] PCP - General 12/08/20 01/18/25 Monika Hernandez APRN [address] [place] [address] PCP - General 01/19/25 Sary Brannon APRN 1210 [facility] [address] [place] [address] Referring Physician Gastroenterology 01/07/25 documented as of this encounter
--- OUTSIDE RECORDS SUMMARY | 2025-03-24 09:56 | XMS_ITS | Encounter Summary ---
Author Organization Healthcare Address [address] [place] [address] Care Team Providers Care Clergy Member Name Role Phone Larry Bedolla MD Primary Care Provider + [phone] Sary Brannon APRN Unavailable [phone] Monika Hernandez APRN Primary Care Provider + [phone] Encounter Details Date Type Department Care Team (Late st Contact Info) Description 12/09/2024 Orders Only External Location [address] [place] [address] Provider, External Social History Tobacco Use Types [...] documented as of this encounter Care Teams Clergy Member Relationship Specialty Start Date End Date Larry Bedolla MD [address] [place] [address] PCP - General 12/08/20 01/18/25 Monika Hernandez APRN [address] [place] [address] PCP - General 01/19/25 Sary Brannon APRN 1210 [facility] [address] [place] [address] Referring Physician Gastroenterology 01/07/25 documented as of this encounter
--- OUTSIDE RECORDS SUMMARY | 2025-03-24 09:56 | XMS_ITS | Encounter Summary ---
Author Organization Healthcare Address [address] [place] [address] Care Team Providers Care Electrical Technician Name Role Phone Larry Bedolla MD Primary Care Provider + [phone] Sary Brannon APRN Unavailable [phone] Monika Hernandez APRN Primary Care Provider + [phone] Encounter Details Date Type Department Care Team (Late st Contact Info) Description 11/30/2024 Orders Only External Location [address] [place] [address] Provider, External Social History Tobacco Use Types [...] documented as of this encounter Care Teams Electrical Technician Relationship Specialty Start Date End Date Larry Bedolla MD [address] [place] [address] PCP - General 12/08/20 01/18/25 Monika Hernandez APRN [address] [place] [address] PCP - General 01/19/25 Sary Brannon APRN 1210 [facility] [address] [place] [address] Referring Physician Gastroenterology 01/07/25 documented as of this encounter
--- OUTSIDE RECORDS SUMMARY | 2025-03-24 09:56 | XMS_ITS | Encounter Summary ---
Author Organization Healthcare Address [address] [place] [id number] Care Team Providers Care Senior Ui Web Developer Name Role Phone Sary Brannon APRN Unavailable [phone] Monika Hernandez APRN Primary Care Provider +[phone] Encounter Details Date Type Department Care Team [...] as of this encounter Care Teams Senior Ui Web Developer Relationship Specialty Start Date End Date Monika Hernandez APRN [address] [place] [address] PCP - General 01/19/25 Sary Brannon APRN [address] [place] [address] Referring Physician Gastroenterology 01/07/25 documented as of this encounter
--- OUTSIDE RECORDS SUMMARY | 2025-03-24 09:56 | XMS_ITS | Encounter Summary ---
Author Organization Healthcare Address [address] [place] [address] Care Team Providers Care Agricultural Chemist Name Role Phone Larry Bedolla MD Primary Care Provider + [phone] Sary Brannon APRN Unavailable [phone] Monika Hernandez APRN Primary Care Provider + [phone] Encounter Details Date Type Department Care Team (Late st Contact Info) Description 12/10/2024 Orders Only External Location [address] [place] [address] Provider, External Social History Tobacco Use Types [...] documented as of this encounter Care Teams Agricultural Chemist Relationship Specialty Start Date End Date Larry Bedolla MD [address] [place] [address] PCP - General 12/08/20 01/18/25 Monika Hernandez APRN [address] [place] [address] PCP - General 01/19/25 Sary Brannon APRN 1210 [facility] [address] [place] [address] Referring Physician Gastroenterology 01/07/25 documented as of this encounter
--- OUTSIDE RECORDS SUMMARY | 2025-03-24 09:56 | XMS_ITS ---
Author Organization [facility] Address [address] [place] [address] Care Team Providers Care Systems Test Technician Name Role Phone Sary Brannon APRN Unavailable [phone] Monika Hernandez APRN Primary Care Provider [phone] Transplant Episode Liver Candidate [facility] ([place], [place]) - JOSÉ LUIS Referred on 01/07/2025 Marked as Active on 01/07/2025 Liver CoordinatorMoraima Centeno RN Fax: N/A Email: N/A Scores Score Value Updated Expires Exceptions/Saloni sons CPRA Not available MELD (Calc) 22 02/22/2025 Care Team Name Role Phone Fax Email Moraima Centeno RN Liver Coordinator [phone] N/A N/A Sary Brannon APRN Referring Physician [phone] N/A Gem Clark Blasting Entryman [phone] N/A N/A Edil Kiran MD Surgeon [phone] N/A Events Pre-Transplant Referred: 01/07/2025 Committee: 02/28/2025 Appointments (02/21/2025 - 04/24/2025) When With Visit Type Description 02/22/2025 Transplant - Surgeon, T Initial Clinic Evaluation 02/22/2025 Transplant - [facility] End-stage liver disease (CMS/HCC) 02/22/2025 Transplant - Theodora Calvo Initial Clinic Evaluation End-stage liver disease (CMS/HCC) (Primary Dx); 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
--- OUTSIDE RECORDS SUMMARY | 2025-03-24 09:56 | XMS_ITS | Encounter Summary ---
Author Organization Healthcare Address [address] [place] [address] Care Team Providers Care Billing Typist Name Role Phone Larry Bedolla MD Primary Care Provider + [phone] Sary Brannon APRN Unavailable [phone] Monika Hernandez APRN Primary Care Provider + [phone] Encounter Details Date Type Department Care Team (Late st Contact Info) Description 04/02/2017 Orders Only External Location [address] [place] [address] Provider, External Social History Tobacco Use Types [...] on filedocumented in this encounter Care Teams Billing Typist Relationship Specialty Start Date End Date Larry Bedolla MD [address] [place] [address] PCP - General 12/08/20 01/18/25 Monika Hernandez APRN [address] [place] [address] PCP - General 01/19/[address] [facility] [address] [place] [address] Referring Physician Gastroenterology 01/07/25 documented as of this encounter
--- OUTSIDE RECORDS SUMMARY | 2025-03-24 09:56 | XMS_ITS | Encounter Summary ---
Author Organization Healthcare Address [address] [place] [address] Care Team Providers Care Truck Trailer Final Inspector Name Role Phone Larry Bedolla MD Primary Care Provider + [phone] Sary Brannon APRN Unavailable [phone] Monika Hernandez APRN Primary Care Provider [phone] Encounter Details Date Type Department Care Team (Late st Contact Info) Description 01/21/2022 Community [facility] [address] [place] [address] Larry Bedolla MD [address] [place], [place] [address] Central stenosis of spinal canal (Primary Dx) [...] documented as of this encounter Care Teams Truck Trailer Final Inspector Relationship Specialty Start Date End Date Larry Bedolla MD [address] [place] [address] PCP - General 12/08/20 01/18/25 Monika Hernandez APRN [address] [place], [place] [address] PCP - General 01/19/25 Sary Brannon APRN 1210 [facility] [address] [place] [address] Referring Physician Gastroenterology 01/07/25 documented as of this encounter
--- OUTSIDE RECORDS SUMMARY | 2025-03-24 09:56 | XMS_ITS | Clinical Summary ---
Author Organization [facility] Address [address] [place] [address] Care Team Providers Care Telephone Sales Representative Name Role Phone Sherri Adkins APRN Primary [...] VACCINE 04/27/2025 Insurance [employer] Care Teams Telephone Sales Representative Relationship Specialty Start Date End Date Sherri Adkins APRN [address] [place] [address] PCP - General Family Medicine 03/12/16
--- OUTSIDE RECORDS SUMMARY | 2025-03-24 09:56 | XMS_ITS | Encounter Summary ---
Author Organization Healthcare Address [address] [place] [address] Care Team Providers Care Sponsorship Coordinator Name Role Phone Larry Bedolla MD Primary Care Provider + [phone] Sary Brannon APRN Unavailable [phone] Monika Hernandez APRN Primary Care Provider + [phone] Encounter Details Date Type Department Care Team (Late st Contact Info) Description 12/07/2024 Orders Only External Location [address] [place] [address] Provider, External Social History Tobacco Use Types [...] documented as of this encounter Care Teams Sponsorship Coordinator Relationship Specialty Start Date End Date Larry Bedolla MD [address] [place] [address] PCP - General 12/08/20 01/18/25 Monika Hernandez APRN [address] [place] [address] PCP - General 01/19/25 Sary Brannon APRN 1210 [facility] [address] [place] [address] Referring Physician Gastroenterology 01/07/25 documented as of this encounter
--- OUTSIDE RECORDS SUMMARY | 2025-03-24 09:56 | XMS_ITS | Encounter Summary ---
Author Organization Healthcare Address [address] [place] [address] Care Team Providers Care Bottle Tester Name Role Phone Larry Bedolla MD Primary Care Provider + [phone] Sary Brannon APRN Unavailable [phone] Monika Hernandez APRN Primary Care Provider + [phone] Encounter Details Date Type Department Care Team (Late st Contact Info) Description 10/26/2024 Orders Only External Location [address] [place] [address] Provider, External Social History Tobacco Use Types [...] documented as of this encounter Care Teams Bottle Tester Relationship Specialty Start Date End Date Larry Bedolla MD [address] [place] [address] PCP - General 12/08/20 01/18/25 Monika Hernandez APRN [address] [place] [address] PCP - General 01/19/25 Sary Brannon APRN 1210 [facility] [address] [place] [address] Referring Physician Gastroenterology 01/07/25 documented as of this encounter
--- OUTSIDE RECORDS SUMMARY | 2025-03-24 09:56 | XMS_ITS | Encounter Summary ---
Author Organization Healthcare Address [address] [place] [address] Care Team Providers Care Detailer Pharmaceuticals Name Role Phone Larry Bedolla MD Primary Care Provider + [phone] Sary Brannon APRN Unavailable [phone] Monika Hernandez APRN Primary Care Provider [phone] Reason for Referral * Consultation (Routine) - Closed Specialty Diagnoses / Procedures Referred By Mayela may Referred To Contact Hepatology Diagnoses Bilious vomiting with nausea Anticentromere antibodies present Thrombopenia (CMS/HCC) Stage 3 hepatic fibrosis Raul Kincaid PA [address] [place] [address] Phone: tel: fax: Referral ID Status Reason Start Date Expiration Date V isits Requested Visits Authorized [id number] Closed Specialty Services Required 09/27/2021 03/29/2023 1 1 Encounter Details Date Type Department Care Team (Late st Contact Info) Description 09/27/2021 Community [facility] Community Practice [address] [place] [address] Raul Kincaid PA [address] [place] [address] Bilious vomiting with nausea (Primary Dx); [...] fibrosis documented in this encounter Care Teams Detailer Pharmaceuticals Relationship Specialty Start Date End Date Larry Bedolla MD [address] [place] [address] PCP - General 12/08/20 01/18/25 Monika Hernandez APRN [address] [place] [address] PCP - General 01/19/25 Sary Brannon APRN 1210 [facility] [address] [place] [address] Referring Physician Gastroenterology 01/07/25 documented as of this encounter
--- OUTSIDE RECORDS SUMMARY | 2025-03-24 09:56 | XMS_ITS | Encounter Summary ---
Author Organization Healthcare Address [address] [place] [address] Care Team Providers Care Precision Millwright Name Role Phone Larry Bedolla MD Primary Care Provider + [phone] Sary Brannon APRN Unavailable [phone] Monika Hernandez APRN Primary Care Provider + [phone] Encounter Details Date Type Department Care Team (Late st Contact Info) Description 11/30/2024 Orders Only External Location [address] [place] [address] Provider, External Social History Tobacco Use Types [...] documented as of this encounter Care Teams Precision Millwright Relationship Specialty Start Date End Date Larry Bedolla MD [address] [place] [address] PCP - General 12/08/20 01/18/25 Monika Hernandez APRN [address] [place] [address] PCP - General 01/19/25 Sary Brannon APRN [address] [place] [address] Referring Physician Gastroenterology 01/07/25 documented as of this encounter
--- OUTSIDE RECORDS SUMMARY | 2025-03-24 09:56 | XMS_ITS | Clinical Summary ---
Author Organization [facility] [place] [address] Care Team Providers Care Geodetic Technician Name Role Phone Unavailable Primary Care Provider [...]
--- OUTSIDE RECORDS SUMMARY | 2025-03-24 09:56 | XMS_ITS | Encounter Summary ---
Author Organization Healthcare Address [address] [place] [address] Care Team Providers Care Sprigger Name Role Phone Larry Bedolla MD Primary Care Provider + [phone] Sary Brannon APRN Unavailable [phone] Monika Hernandez APRN Primary Care Provider + [phone] Encounter Details Date Type Department Care Team (Late st Contact Info) Description 04/30/2018 Orders Only External Location [address] [place] [address] Provider, External Social History Tobacco Use Types [...] on filedocumented in this encounter Care Teams Sprigger Relationship Specialty Start Date End Date Larry Bedolla MD [address] [place] [address] PCP - General 12/08/20 01/18/25 Monika Hernandez APRN [address] [place] [address] PCP - General 01/19/25 Sary Brannon APRN 1210 [facility] [address] [place] [address] Referring Physician Gastroenterology 01/07/25 documented as of this encounter
--- OUTSIDE RECORDS SUMMARY | 2025-03-24 09:56 | XMS_ITS | Encounter Summary ---
Author Organization Healthcare Address [address] [place] [address] Care Team Providers Care Lead Consultant Name Role Phone Larry Bedolla MD Primary Care Provider + [phone] Sary Brannon DIETARY SERVICE AIDE Unavailable [phone] Monika Hernandez APRN Primary Care Provider [phone] Encounter Details Date Type Department Care Team (Late st Contact Info) Description 01/03/2025 Community [facility] Community Practice [address] [place] [address] Sary Brannon, DIETARY SERVICE AIDE [address] [place], [place] [id number] Social History Tobacco Use Types Packs/Day Years [...] documented as of this encounter Care Teams Lead Consultant Relationship Specialty Start Date End Date Larry Bedolla MD [address] [place] [address] PCP - General 12/08/20 01/18/25 Monika Hernandez APRN [address] [place] [address] PCP - General 01/19/25 Sary Brannon APRN [address] [place] [address] Referring Physician Gastroenterology 01/07/25 documented as of this encounter
--- OUTSIDE RECORDS SUMMARY | 2025-03-24 09:57 | XMS_ITS | Clinical Summary ---
Author Organization Healthcare Address [address] [place] [address] Care Team Providers Care Catalog Library Assistant Name Role Phone Sary Brannon MEDICAL TYPIST Unavailable [phone] Monika Hernandez APRN Primary Care Provider [phone] Allergies No known active allergies Medications bisoprolol [...] 3 INJECTIONS DAILY 11/11/19 Active HYDROcodone-acetam inophen (Lawn) 10-325 MG tablet 10/24/19 Active spironolactone (Aldactone) 25 MG tablet Take 0.5 tablets by mouth daily. 10/03/19 Active furosemide (Lasix) 40 MG tablet Take by mouth 2 (two) times a day. 10/03/19 Active Insulin Lispro (HUMALOG IJ) Inject as directed. Active dapagliflozin (Farxiga) 5 MG tabletIndications: CKD (chronic kidney disease) stage 2, GFR 60-89 ml/min,Microalbumi ruperto,Coronary artery disease involving [place] heart with angina pectoris and documented spasm, [...] packet by mouth daily. 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); Portal hypertension (CMS/HCC); Other ascites; GERMÁN (acute kidney injury) (CMS/HCC) 02/22/2025 Travel 02/17/2025 Telephone [facility] [address] [address] Jessica Simms Appointment (Confirmation and reminders) 01/19/2025 Telephone [facility] [address] [address] Jessica Simms Appointment (scheduling) 01/07/2025 Telephone [facility] [place] [address] [address] Kasey Dye Referral - Liver Txp 01/03/2025 Community Orders Community Practice [address] [place] [address] Sary Brannon APRN 12/31/2024 Orders Only External Location [address] [place] [id number] Monika Hernandez APRN from Last 3 Months [...] 02/22/2025 8:02 AM EDT Plan of Treatment Health Maintenance Due Date Last Done Comments [facility]-HIV Screening 1960 [facility] Annual Wellness (AWV) 1960 [facility]-/Child/Adol SDOH Screenings [...] 06/04/2022 01/02/2022, 11/21/2021 [facility]-Depression Screening 01/02/2023 01/02/2022 [id number] Vaccine ( season) 2024 05/13/2021, 04/15/2021, 11/08/2020 [...] OUTSIDE IMAGES 12/31/2024 7:3 3 AM EDT HEMOGLOBIN A1C Routine 01/24/2016 1:47 PM EDT from Last 3 Months or Most Recently Relevant to Health Maintenance Results * HEPATITIS B SURFACE ANTIBODY, QUANTITATIVE (02/22/2025 7:18 AM EDT) Hepatitis B Surface Antibody, Quantitative <8.00 NonReactiv e: <8, Grayzone: 8 - <12, Reactive: >= 12 mIU/mL 02/22/2025 8:44 AM EDT [facility] Comment: Nonreactive. Individual is considered not immune to HBV infection. Blood Venous blood specimen / Unknown Venipuncture / Unknown 02/22/2025 7:18 AM EDT 02/22/2025 7:48 AM EDT us Edil Kiran MD LAB BLOOD ORDERABLES Final Resul t [facility] [address] [place] [address] * Alpha fetoprotein, serum (02/22/2025 7:18 AM EDT) Alpha Fetoprotein, Serum <2.3 <10.0 ng/mL 02/22/2025 8:25 AM EDT [facility] Blood Venous blood specimen / Unknown Venipuncture / Unknown 02/22/2025 7:18 AM EDT 02/22/2025 7:48 AM EDT Narrative [facility] - 02/22/2025 8:25 AM EDT Performed by Stone electrochemiluminescent immunoassay which is traceable to the 1st AFP IRP WHO Reference standard 72/255. Results obtained with different test methods or kits cannot be used interchangeably. us Edil Kiran MD LAB BLOOD ORDERABLES Final Resul t Performing Organization Address [facility] [place] [address] * (ABNORMAL) Hepatitis A Antibody IgG (02/22/2025 7:18 AM EDT) Pathologist [facility] Hepatitis A Antibody IgG Positive(A ) Negative 02/22/2025 8:44 AM EDT [facility] Blood Venous blood specimen / Unknown Venipuncture / Unknown 02/22/2025 7:18 AM EDT 02/22/2025 7:48 AM EDT us Edil Kiran MD LAB BLOOD ORDERABLES Final Resul t Performing Organization Address [facility] Co de Phone Number [facility] [address] [place] [address] * Hepatitis C Antibody (02/22/2025 7:18 AM EDT) Hepatitis C Antibody Negative Negative 02/22/2025 8:29 AM EDT [facility] Blood Venous blood specimen / Unknown Venipuncture / Unknown 02/22/2025 7:18 AM EDT 02/22/2025 7:48 AM EDT us Edil Kiran MD LAB BLOOD ORDERABLES Final Resul t Performing Organization Address [facility] Co de Phone Number [facility] [address] [place] [address] * Nicotine Cotinine Metabolite (02/22/2025 7:18 AM EDT) NICOTINE <5 <5 ng/mL 02/24/2025 2:3 4 PM EDT [facility] Cotinine <5 <5 ng/mL 02/24/2025 2:3 4 PM EDT [facility] Blood Venous blood specimen / Unknown Venipuncture / Unknown 02/22/2025 7:18 AM EDT 02/22/2025 7:46 AM EDT Narrative [facility] - 02/24/2025 2:34 PM EDT Testing performed by LC-MS/MS at the [facility] Special Chemistry/Toxicology Laboratory. This test was developed and its performance characteristics determined by [facility]. This assay has not been cleared by the FDA. The laboratory is regulated under CLIA as qualified to perform high-complexity testing. This test is used for clinical purposes. Edil Kiran MD LAB BLOOD ORDERABLES Final Resul t [facility] [address] [place] [address] * ABO/Rh (02/22/2025 7:18 AM EDT) ABO/Rh O Positive 02/22/2025 7:14 AM EDT [facility] Blood Venous blood specimen / Unknown Venipuncture / Unknown 02/22/2025 7:18 AM EDT 02/22/2025 7:46 AM EDT Edil Kiran MD LAB BLOOD BANK TEST ORDERABLES F inal Result BLOOD BANK [address] [place] [address] * Hepatitis B Surface Antigen (02/22/2025 7:18 AM EDT) Hepatitis B Surf Antigen Negative Negative 02/22/2025 8:44 AM EDT [facility] Blood Venous blood specimen / Unknown Venipuncture / Unknown 02/22/2025 7:18 AM EDT 02/22/2025 7:48 AM EDT Edil Kiran MD LAB BLOOD ORDERABLES Final Resul t Performing Organization Address [facility] de Phone Number [facility] [address] [place] [address] * (ABNORMAL) Protime-INR (02/22/2025 7:18 AM EDT) Prothrombin Time 18.7(H) 12.0 - 14.3 sec LAB COAGULATION METHOD 02/22/2025 8:04 AM EDT [facility] INR 1.6(H) 0.9 - 1.1 LAB COAGULATION METHOD 02/22/2025 8:04 AM EDT [facility] Blood Venous blood specimen / Unknown Venipuncture / Unknown 02/22/2025 7:18 AM EDT 02/22/2025 7:46 AM EDT Narrative [facility] - 02/22/2025 8:04 AM EDT OPTIMAL INR RANGES FOR PATIENT ON ORAL ANTICOAGULANT THERAPY Prevention of venous thromboembolism INR 2.0 to 3.0 In patients with heart disease: Atrial fibrillation INR 2.0 to 3.0 Valvular heart disease INR 2.0 to 3.0 Tissue heart valves INR 2.0 to 3.0 Mechanical prosthetic valves INR 2.5 to 3.5 Prevention of recurrent WI INR 2.5 to 3.5 Edil Kiran MD LAB BLOOD ORDERABLES Final Resul t Performing Organization Address [facility] Co de Phone Number [facility] [address] [place] [address] * (ABNORMAL) Hemogram (CBC) (02/22/2025 7:18 AM EDT) WBC Count 2.35(L) 3.70 - 10.30 10*3/uL LAB HEMATOLOGY METHOD 02/22/2025 9:33 AM EDT [facility] RBC Count 3.33(L) 3.90 - 5.20 10*6/uL LAB HEMATOLOGY METHOD 02/22/2025 9:33 AM EDT [facility] HGB 10.2(L) 11.2 - 15.7 g/dL LAB HEMATOLOGY METHOD 02/22/2025 9:33 AM EDT [facility] HCT 31.8(L) 34.0 - 45.0 % LAB HEMATOLOGY METHOD 02/22/2025 9:33 AM EDT [facility] Platelet Count 75(L) 155 - 369 10*3/uL LAB HEMATOLOGY METHOD 02/22/2025 9:33 AM EDT [facility] MCV 96 79 - 98 fL LAB HEMATOLOGY METHOD 02/22/2025 9:33 AM EDT [facility] MCH 30.6 26.0 - 32.0 pg LAB HEMATOLOGY METHOD 02/22/2025 9:33 AM EDT [facility] MCHC 32.1 30.7 - 35.5 g/dL LAB HEMATOLOGY METHOD 02/22/2025 9:33 AM EDT [facility] RDW 15.7(H) 11.5 - 14.5 % LAB HEMATOLOGY METHOD 02/22/2025 9:33 AM EDT [facility] MPV 10.5 8.8 - 12.5 fL LAB HEMATOLOGY METHOD 02/22/2025 9:33 AM EDT [facility] nRBC 0.0 <=0.0 per 100 WBCs LAB HEMATOLOGY METHOD 02/22/2025 9:33 AM EDT [facility] Blood Venous blood specimen / Unknown Venipuncture / Unknown 02/22/2025 7:18 AM EDT 02/22/2025 7:41 AM EDT us Edil Kiran MD LAB BLOOD ORDERABLES Final Resul t [facility] [address] [place] [address] * (ABNORMAL) Comprehensive metabolic panel (02/22/2025 7:18 AM EDT) Glucose, Plasma 283(H) 74 - 99 mg/dL 02/22/2025 8:16 AM EDT [facility] BUN, Plasma 30(H) 8 - 23 mg/dL 02/22/2025 8:16 AM EDT [facility] Creatinine, Plasma 2.54(H) 0.60 - 1.10 mg/dL 02/22/2025 8:16 AM EDT [facility] BUN/Creatinine Ratio 12 02/22/2025 8:16 AM EDT [facility] Sodium, Plasma 137 136 - 145 mmol/L 02/22/2025 8:16 AM EDT [facility] Potassium, Plasma 4.3 3.6 - 4.9 mmol/L 02/22/2025 8:16 AM EDT [facility] Chloride, Plasma 105 97 - 107 mmol/L 02/22/2025 8:16 AM EDT [facility] CO2, Plasma 24 22 - 29 mmol/L 02/22/2025 8:16 AM EDT [facility] Anion Gap 8 6 - 16 mmol/L 02/22/2025 8:16 AM EDT [facility] Total Calcium, Plasma 8.6(L) 8.9 - 10.2 mg/dL 02/22/2025 8:16 AM EDT [facility] Total Protein 7.2 6.3 - 7.9 g/dL 02/22/2025 8:16 AM EDT [facility] Albumin, Plasma 2.9(L) 3.5 - 5.2 g/dL 02/22/2025 8:16 AM EDT [facility] AST, Plasma 37(H) 10 - 35 U/L 02/22/2025 8:16 AM EDT [facility] ALT, Plasma 15 10 - 35 U/L 02/22/2025 8:16 AM EDT [facility] Alkaline Phosphatase, Plasma 121 46 - 142 U/L 02/22/2025 8:16 AM EDT [facility] Total Bilirubin, Plasma 0.9 0.2 - 1.1 mg/dL 02/22/2025 8:16 AM EDT [facility] eGFRcr 20.9 mL/min/1.7 3m*2 02/22/2025 8:16 AM EDT [facility] Comment:Reported eGFRcr in m L/min/1.73m2 is based the CKD-EPI 2020 equation that does not use a race coefficient. Blood Venous blood specimen / Unknown Venipuncture / Unknown 02/22/2025 7:18 AM EDT 02/22/2025 7:47 AM EDT Edil Kiran MD LAB BLOOD ORDERABLES Final Resul t [facility] [address] [place] [address] * Creatinine, Plasma (01/03/2025) External Creatinine Blood 3.00 mg/dL Blood Venous blood specimen / Unknown 01/03/2025 Historical Provider LAB BLOOD ORDERABLES Final R esult * Sodium, Plasma (01/03/2025) External Sodium 144 mmol/L Blood Venous blood specimen / Unknown 01/03/2025 Historical Provider LAB BLOOD ORDERABLES Final R esult * Albumin, Plasma (01/03/2025) External Albumin 3.6 g/dL Blood Venous blood specimen / Unknown 01/03/2025 Result [facility] Provider LAB BLOOD ORDERABLES Final R esult * US OUTSIDE IMAGES (12/31/2024 7:33 AM EDT) Anatomical Region Laterality Modality Ultrasound 12/31/2024 7:33 AM EDT Result [facility] Monika Hernandez APRN IMG US PROCEDURES Final Result * (ABNORMAL) Hemoglobin A1c [...] EDT 01/24/2016 6:17 PM EDT Sherri Adkins MEDICAL TYPIST LAB BLOOD ORDERABLES Final Result SUN[facility] from Last 3 Months or Most Recently Relevant to Health Maintenance Insurance [employer] [place] [address] Care Teams Catalog Library Assistant Relationship Specialty Start Date End Date Monika Hernandez APRN [address] [facility] [address] PCP - General 01/19/25 Sary Brannon APRN [address] [facility] [address] [place] [address] Referring Physician Gastroenterology 01/07/25
[2025-03-24 10:42] LABS: Hematocrit 32.6 % (37.0-47.0); Hemoglobin 10.6 g/dL (12.2-16.2); Immature Granulocytes % 0.3 %; Mean Corpuscular HGB Conc 32.5 g/dL (31.8-35.4); Mean Corpuscular Hemoglobin 31.3 pg (27.0-31.2); Mean Corpuscular Volume 96.2 fl (81-99); Nucleated Red Blood Cells % 0 %; Platelet Count 86 K/mm3 (142-424); Red Blood Count 3.39 M/mm3 (4.20-5.40); Red Cell Distribution Width-SD 54.8 fL; White Blood Count 2.9 K/mm3 (4.8-10.8)
[2025-03-24 11:02] LABS: Chloride 115 mmol/L (98-107); Sodium 138 mmol/L (136-145)
[2025-03-24 11:03] LABS: Albumin Level 3.0 g/dl (3.5-5.0); Potassium 4.1 mmoL/L (3.5-5.1)
[2025-03-24 11:05] LABS: Anion Gap 7.1 mEq/L (5-15); Blood Urea Nitrogen 34 mg/dl (7-17); Carbon Dioxide 20 mmol/L (22.0-30.0); Creatinine,Serum 1.90 mg/dl (0.52-1.04); Estimated Glomerular Filt Rate 27 ml/min (>60); GFR (African American) 32 ML/MIN (>60)
[2025-03-24 11:06] LABS: Calcium 8.5 mg/dl (8.4-10.2); Glucose 118 mg/dl (74-100); Phosphorous 3.8 mg/dl (2.5-4.5)
== END 2025-03-24 23:59 | disposition home or self-care (01) ==
LOC: LAB 09:50
PROVIDERS: PCP Family Medicine; Visit Provider Internal Medicine Nephrology
DX: N17.9 Acute kidney failure, unspecified (principal)
CPT/HCPCS: 36415; 80069; 85025

== ENCOUNTER 2025-03-25 08:42 | Outpatient (CLI) | payer MEDICARE, MEDICAID, SELFPAY ==
--- OUTSIDE RECORDS SUMMARY | 2018-11-16 06:00 | XMS_ITS | Continuity of Care Document ---
Author Organization [facility] Address [address] [place] [phone] Phone Care Team Providers Care Paper Sealer Name Role Phone Dane Pink MD Unavailable [...] Provider Providers Copied on Encounter Connor [place] [facility], [address] [place] [address], [id number], [phone] JENNIFER Torres [place] No Information 9 Apryl Vela. [address] [place] [address], [id number] , . tel:[phone] OFFICE/OUTPA TIENT VISIT, EST Connor [place] [facility], [address] [place] [address], [address] [place] [address], tel:[phone] [place] inflammation ck OS (chief complaint) Iritis, recurrent, left eye 9 Apryl Vela. [address] [place] [address], [address] [place] [address] , . tel:[phone] Referring Provider: Self Referred Jose C Connor [place] [facility], [address] [place] [address], [id number], tel:[phone] JENNIFER Torres [place] Anterior Seg ck (chief complaint) Iritis, recurrent, left eye 9 Apryl Vela. [address] [place] [address], [id number] , . tel:[phone] Referring Provider: Maria Teresa Santos, [employer] [address] [place] [address], [facility]. tel:[phone] Family History Family Member Type Diagnosis Age At Onset Problem (finding) Family history of Diabe reynold mellitus Problem (finding) Family history of Cardi ovascular disease Problem (finding) Family history of glauc haroon Payers Payer name Insurance type Covered democrat ID Authoriza tion(s) Medicare [facility] [id number] Social History Type Description Quantity Date Captured [...]
--- OUTSIDE RECORDS SUMMARY | 2025-02-22 09:20 | XMS_ITS | Encounter Summary ---
Author Organization Healthcare Address [address] [place] [address] Care Team Providers Care Mechanical Reliability Engineer Name Role Phone Sary Brannon PUBLIC TRANSIT BUS DRIVER Unavailable [phone] Monika Hernandez APRN Primary Care Provider [phone] Reason for Referral * Consultation (Routine) - Authorized Specialty Diagnoses / Procedures Referred By Contac t Referred To Contact Physical Therapy Diagnoses End-stage liver disease (CMS/HCC) Ollie Calvo MD [address] [address] Phone: tel: fax: Referral ID Status Reason Start Date Expiration Date Visits Requested Visits Authorized [id number] Authorized Consult and Treat 02/22/2025 08/24/2026 1 1 * Imaging (Routine) - Authorized Specialty Diagnoses / Procedures Referred By Contac t Referred To Contact Diagnoses End-stage liver disease (CMS/HCC) Procedures US Abdomen Ollie Calvo MD [address] [address] Phone: tel: fax: Referral ID Status Reason Start Date Expiration Date V isits Requested Visits Authorized [id number] Authorized 02/22/2025 08/24/2026 1 1 * Imaging (Routine) - Pending Review Specialty Diagnoses / Procedures Referred By Contmazin t Referred To Contact Gastroenterology Diagnoses End-stage liver disease (CMS/HCC) Procedures EGD Ollie Calvo MD [address] [address] Phone: tel: fax: Referral ID Status Reason Start Date Expiration Date Visits Requested Visits Authorized [id number] Pending Review Specialty Services Required 02/22/2025 08/24/2026 1 1 Reason for Visit * Reason Comments Pre-Liver Txp Follow-up * Consultation (Routine) - Closed Specialty Diagnoses / Procedures Referred By Mayela t Referred To Contact Transplant Diagnoses End-stage liver disease (CMS/HCC) Edil Kiran MD [address] [facility] [address] [place] [phone] Phone: tel: fax: [facility] [place] [address] [address] Phone: tel: fax: Referral ID Status Reason Start Date Expiration Date V isits Requested Visits Authorized [id number] Closed Specialty Services Required 01/19/2025 07/21/2026 1 1 Encounter Details Date Type Department Care Team (Late st Contact Info) Description 02/22/2025 9:20 AM EDT Office Visit 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); Portal hypertension (CMS/HCC); Other ascites; GERMÁN (acute kidney injury) (CMS/HCC) Social History Tobacco Use Types Packs/Day [...] Sign Reading Time Taken Comments Blood Pressure 149/79 02/22/2025 8:02 AM EDT Pulse 98 02/22/2025 8:02 AM EDT Temperature 36.6 C (97.9 F) 02/22/2025 8:02 AM EDT Respiratory Rate 16 02/22/2025 8:02 AM EDT Oxygen Saturation 99% 02/22/2025 8:02 AM EDT Inhaled Oxygen Concentration - - Weight 73 kg (160 lb 15 oz) 02/22/2025 8:02 AM E DT Height 167.6 cm (5' 6 ) 02/22/2025 8:02 AM EDT Body Mass Index 25.98 02/22/2025 8:02 AM EDT documented in this encounter Miscellaneous Notes * Progress Notes - Angel Pulliam MBBS - 02/22/2025 9:20 AM EDT Subjective Patient ID: Mary Coronel is a 64 y.o. female. Chief Complaint Patient presents with Pre-Liver Txp Follow-up Edil Kiran MD [address] [phone] [facility] Patient is a 64 year old female with a past medical history of decompensated cirrhosis secondary toMASLD. Patient presents today for initial transplant consultation. Patient was initially diagnosed with cirrhosis around 3 years ago. She was hospitalized in [facility] for hepatorenal syndrome and was treated with albumin, midodrine and octreotide. She also underwent diuresis, paracentesis. She did develop A fib with RVR inpatient and was started on Amiodarone. Her bisoprolol was discontinued due to hypotension. She a;so had an episode of melena and had EGDperformed showing non bleeding EV, duodenal ulcer and retained food. She was started on pantoprazole. Her lisinopril was stopped as well. 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 Has an EGD pending. Her Asa and Plavix were stopped. Last stent was 5 years ago. Her course has been further complicated by development of ascites and HE. She has been struggling with ascites since 3 months. Attempts for diuresis have been difficult with her Stage 4 CKD. She is currently on Bumex 1 mg and Aldactone 12.5 mg. She gets weekly paracentesis, most recently had 7.5L out. Denies Hx of SBP. Course has further been complicated by HE requiring lactulose 15ml bid and rifaximin 550 mg bid. Decompensation Ascites - SBP: No - LVP: Yes Variceal bleeding - No HE- Yes EGD: 12/19- Non bleeding EV, duodenal ulcer, 8 week repeat Colonoscopy: performed 01/2021 at [facility] with polypectomy (TA). 1 year repeat was recommended but she states she did not follow-up. She has a history of anal soft tissue thickening that was previously being followed by Dr. Quiñonez. Past medical hx CKD-4, A fib, CAD d/p PCI, DM, HLD Surgical hx Reviewed, no significant abdominal surgeries. Family hx Reviewed, non contributory Social hx Alcohol: None Smoking:None Drugs/Substances: None The following portions of the chart were reviewed this encounter and updated as appropriate: Review of Systems 14 point ROS negative except for HPI Objective Visit Vitals BP (!) 149/79 Pulse 98 Temp 36.6 ??C (97.9 ??F) Ht 1.676 m (5' 6 ) Wt 73 kg (160 lb 15 oz) SpO2 99% BMI 25.98 kg/m?? Constitutional: Appearance: Normal appearance, well-developed. HENT: Head: Normocephalic and atraumatic. Right Ear: External ear normal. Left Ear: External ear normal. Nose: Nose normal. Mouth/Throat: Mouth: Mucous membranes are moist. Pharynx: Oropharynx is clear. Eyes: General: No scleral icterus. Conjunctiva/sclera: Conjunctivae normal. Neck: Thyroid: No thyromegaly. Vascular: No JVD. Cardiovascular: Rate and Rhythm: Normal rate and regular rhythm. Pulmonary: Effort: Pulmonary effort is normal. Breath sounds: Normal breath sounds. Abdominal: General: There is no distension. Palpations: Abdomen is soft. There is no hepatomegaly, splenomegaly or mass. Tenderness: There is no abdominal tenderness. There is no guarding. Hernia: No hernia is present. Musculoskeletal: General: Normal range of motion. Cervical back: Neck supple. Right lower leg: No edema. Left lower leg: No edema. Lymphadenopathy: Cervical: No cervical adenopathy. Skin: General: Skin is warm. Coloration: Skin is not jaundiced or pale. Neurological: General: No focal deficit present. Mental Status: She is alert and oriented to person, place, and time. Gait: Gait normal. Psychiatric: Mood and Affect: Mood normal. Behavior: Behavior normal. Judgment: Judgment normal. Current Medications[1] Laboratory values CBC: WBC Count Date/Time Value Ref Range Status 02/22/2025 07:18 AM 2.35 (L) 3.70 - 10.30 10*3/uL Final 11/21/2021 11:22 AM 2.54 (L) 3.70 - 10.30 10*3/uL Final 01/05/2015 03:12 PM 5.9 3.7 - 10.3 k/uL Final HGB Date/Time Value Ref Range Status 02/22/2025 07:18 AM 10.2 (L) 11.2 - 15.7 g/dL Final 11/21/2021 11:22 AM 13.7 11.2 - 15.7 g/dL Final 01/05/2015 03:12 PM 14.4 11.2 - 15.7 g/dL Final HCT Date/Time Value Ref Range Status 02/22/2025 07:18 AM 31.8 (L) 34.0 - 45.0 % Final 11/21/2021 11:22 AM 43.0 34.0 - 45.0 % Final 01/05/2015 03:12 PM 41.7 34 - 45 % Final Platelet Count Date/Time Value Ref Range Status 02/22/2025 07:18 AM 75 (L) 155 - 369 10*3/uL Final 11/21/2021 11:22 AM 104 (L) 155 - 369 10*3/uL Final 01/05/2015 03:12 PM 153 (L) 155 - 369 k/uL Final CMP: Sodium, Plasma Date/Time Value Ref Range Status 02/22/2025 07:18 AM 137 136 - 145 mmol/L Final 11/21/2021 11:22 AM 141 136 - 145 mmol/L Final 01/05/2015 03:12 PM 140 136 - 145 mmol/L Final External Sodium Date/Time Value Ref Range Status 01/03/2025 12:00 AM 144 mmol/L Final 12/14/2024 12:00 AM 145 mmol/L Final Potassium, Plasma Date/Time Value Ref Range Status 02/22/2025 07:18 AM 4.3 3.6 - 4.9 mmol/L Final 11/21/2021 11:22 AM 4.6 3.7 - 4.8 mmol/L Final Comment: Reference range for Serum potassium is 0.2 to 0.5 mmol/L higher than Plasma range. 01/05/2015 03:12 PM 4.7 3.7 - 4.8 mmol/L Final Chloride, Plasma Date/Time Value Ref Range Status 02/22/2025 07:18 AM 105 97 - 107 mmol/L Final 11/21/2021 11:22 AM 102 97 - 107 mmol/L Final 01/05/2015 03:12 PM 100 (L) 101 - 108 mmol/L Final CO2, Plasma Date/Time Value Ref Range Status 02/22/2025 07:18 AM 24 22 - 29 mmol/L Final 11/21/2021 11:22 AM 27 22 - 29 mmol/L Final 01/05/2015 03:12 PM 26 22 - 29 mmol/L Final BUN, Plasma Date/Time Value Ref Range Status 02/22/2025 07:18 AM 30 (H) 8 - 23 mg/dL Final 11/21/2021 11:22 AM 12 7 - 21 mg/dL Final 01/05/2015 03:12 PM 12 7 - 21 mg/dL Final Creatinine, Plasma Date/Time Value Ref Range Status 02/22/2025 07:18 AM 2.54 (H) 0.60 - 1.10 mg/dL Final 11/21/2021 11:22 AM 0.97 0.60 - 1.10 mg/dL Final 01/05/2015 03:12 PM 1.02 0.60 - 1.10 mg/dL Final External Creatinine Blood Date/Time Value Ref Range Status 01/03/2025 12:00 AM 3.00 mg/dL Final 12/14/2024 12:00 AM 2.22 mg/dL Final Total Calcium, Plasma Date/Time Value Ref Range Status 02/22/2025 07:18 AM 8.6 (L) 8.9 - 10.2 mg/dL Final 11/21/2021 11:22 AM 9.2 8.9 - 10.2 mg/dL Final Total Bilirubin, Plasma Date/Time Value Ref Range Status 02/22/2025 07:18 AM 0.9 0.2 - 1.1 mg/dL Final 11/21/2021 11:22 AM 0.6 0.2 - 1.1 mg/dL Final External Bilirubin Total Date/Time Value Ref Range Status 12/14/2024 12:00 AM 0.9 mg/dL Final Alkaline Phosphatase, Plasma Date/Time Value Ref Range Status 02/22/2025 07:18 AM 121 46 - 142 U/L Final 11/21/2021 11:22 AM 142 46 - 142 U/L Final ALT, Plasma Date/Time Value Ref Range Status 02/22/2025 07:18 AM 15 10 - 35 U/L Final 11/21/2021 11:22 AM 24 8 - 33 U/L Final AST, Plasma Date/Time Value Ref Range Status 02/22/2025 07:18 AM 37 (H) 10 - 35 U/L Final 11/21/2021 11:22 AM 33 (H) 11 - 32 U/L Final Glucose, Plasma Date/Time Value Ref Range Status 02/22/2025 07:18 AM 283 (H) 74 - 99 mg/dL Final 11/21/2021 11:22 AM 416 (H) 74 - 99 mg/dL Final 01/05/2015 03:12 PM 376 (H) 74 - 99 mg/dL Final Imaging/Radiology No images are attached to the encounter or orders placed in the encounter. Assessment/Plan .MELD 3.0: 22 at 02/22/2025 7:18 AM MELD-Na: 20 at 02/22/2025 7:18 AM Calculated from: Serum Creatinine: 2.54 mg/dL at 02/22/2025 7:18 AM Serum Sodium: 137 mmol/L at 02/22/2025 7:18 AM Total Bilirubin: 0.9 mg/dL (Using min of 1 mg/dL) at 02/22/2025 7:18 AM Serum Albumin: 2.9 g/dL at 02/22/2025 7:18 AM INR(ratio): 1.6 at 02/22/2025 7:18 AM Age at listing (hypothetical): 64 years Sex: Female at 02/22/2025 7:18 AM 1. Cirrhosis secondary to: MASLD Complications of liver disease include: Ascites, HE History of: CKD-4 Chemical dependency: None Counseled on the nature, symptoms & signs, and complications of cirrhosis. Advised to avoid NSAIDS, can take acetaminophen but not to exceed 2000 mg a day. #Transplant: Will order physical therapy and cardiac work-up to optimize for Txp evaluation. # Ascites / pedal edema: LVP: Last week, 7.5 L, going for PRN paracentesis.. SBP: None GERMÁN: in 10/2024, Cr went up to 4, improved with Albumin, midodrine and octreotide, Now stable at 2.5. Diuretics - currently on Bumex 1 mg /day and spironolactone 12.5 mg/day ---- continue with the current dose. Will not increase the dose given recent GERMÁN with creatinine up to 4 mg/dl Suggest strict 2 gm /day salt diet check for BUN /creatinine and electrolytes with labs # Hepatic Encephalopathy: History of tips/ splenorenal shunt None Current symptoms - Asterixis Last hospitalization - 11/2024 Current medicines- On lactulose, goal BM 2-3/day. Struggles with dosing lactulose, added Psyllium to use as needed. On Xifaxan 550 mg BID. # Esophageal varices screening- Last EGD showed 12/19- Non bleeding EV, duodenal ulcer, 8 week repeat ordered Last bleeding /banding- None Beta Katheryn-None, hold off in the setting on uncontrolled ascites with recent GERMÁN, will follow repeat EGD Educated on S/S of GI bleed and advised to go to ER if any occurs. # HCC surveillance: Lab Results Component Value Date AFP <2.3 02/22/2025 US- unremarkable Continue Q6 monthly surveillance protocol. Next 06/21 #Vaccination Hepatitis A- Immune Hepatitis B- Pending 2. Nutritional counseling.-- Counseled on the importance of increasing protein intake, advised to get 1.2-1.5 gram/kg a day. Advsied to take late night snack. Health Maintenance: Colonoscopy: 01/2021, repeat due. RTC in 4 weeks Ollie Calvo MD A total of 40 minutes was spent during this visit for care coordination, including review of medical records and previous notes, obtaining history and physical exam, ordering tests, changes in medications, counseling patient about prognosis, treatment options, instructions for management, consult with peers and clinical documentation in the patient's clinic note [1] Current Outpatient Medications: albuterol 108 (90 Base) MCG/ACT inhaler, as needed., Disp: , Rfl: Aspirin Low Dose 81 MG EC tablet, Take 1 tablet by mouth daily., Disp: 30 tablet, Rfl: 1 atorvastatin (Lipitor) 20 MG tablet, Take 1 tablet by mouth nightly., Disp: , Rfl: BD Pen Needle Joyce 2nd Gen 32G X 4 MM misc, USE TID WITH INJECTIONS, Disp: , Rfl: bumetanide (Bumex) 2 MG tablet, Take 1 tablet by mouth daily., Disp: , Rfl: ferrous sulfate 324 (65 Fe) MG EC tablet, Take 1 tablet by mouth daily with breakfast. Do not crush, chew, or split., Disp: , Rfl: fluticasone (Flonase) 50 MCG/ACT nasal spray, Administer 1 spray into each nostril as needed., Disp: , Rfl: FreeStyle lancets, USE TO TEST TWICE DAILY, Disp: , Rfl: FreeStyle lancets, USE ONE LANCET TWICE DAILY ( PT MUST MAKE APPT FOR REFILLS), Disp: , Rfl: gabapentin (Neurontin) 100 MG capsule, Take 1 capsule by mouth 3 times a day., Disp: , Rfl: Glucose Blood (FREESTYLE LITE TEST ), TEST TWO TIMES A DAY, Disp: , Rfl: glucose blood test strip, USE TO TEST BID, Disp: , Rfl: HYDROcodone-acetaminophen ([place]) 10-325 MG tablet, , Disp: , Rfl: lactulose (Enulose) 10 GM/15ML solution oral solution, Take 15 mL by mouth twice a day., Disp: , Rfl: metOLazone (Zaroxolyn) 2.5 MG tablet, Take 1 tablet by mouth daily., Disp: , Rfl: NovoLIN R 100 UNIT/ML injection vial, Inject 5 Units under the skin as needed., Disp: , Rfl: ondansetron ODT (Zofran-ODT) 4 MG disintegrating tablet, every 8 hours as needed., Disp: , Rfl: pantoprazole (Protonix) 40 MG EC tablet, Take 1 tablet by mouth 2 times a day., Disp: , Rfl: spironolactone (Aldactone) 25 MG tablet, Take 0.5 tablets by mouth daily., Disp: , Rfl: tamsulosin (Flomax) 0.4 MG 24 hr capsule, Take 1 capsule by mouth nightly., Disp: , Rfl: traZODone (Desyrel) 50 MG tablet, as needed., Disp: , Rfl: Trintellix 20 MG tablet, Take 1 tablet by mouth 1 (one) time each day., Disp: , Rfl: Xifaxan 550 MG tablet, Take 1 tablet by mouth 2 times a day., Disp: , Rfl: bisoprolol (Zebeta) 10 MG tablet, Take 10 mg by mouth 1 (one) time each day. (Patient not taking: Reported on 02/22/2025), Disp: , Rfl: clopidogrel (Plavix) 75 MG tablet, TAKE 1 TABLET BY MOUTH ONCE DAILY FOR PLATELET INHIBITOR (Patient not taking: Reported on 02/22/2025), Disp: , Rfl: cyclobenzaprine (Flexeril) 10 MG tablet, 1 po TID prn muscle spasms (Patient not taking: Reported on 02/22/2025), Disp: , Rfl: dapagliflozin (Farxiga) 5 MG tablet, Take 1 tablet (5 mg total) by mouth 1 (one) time each day. (Patient not taking: Reported on 02/22/2025), Disp: 30 tablet, Rfl: 1 FLUoxetine (PROzac) 20 MG capsule, TAKE 3 CAPSULES BY MOUTH DAILY FOR DEPRESSION (Patient not taking: Reported on 02/22/2025), Disp: , Rfl: furosemide (Lasix) 40 MG tablet, Take by mouth 2 (two) times a day. (Patient not taking: Reported on 02/22/2025), Disp: , Rfl: gabapentin (Neurontin) 800 MG tablet, , Disp: , Rfl: Insulin Lispro (HUMALOG IJ), Inject as directed. (Patient not taking: Reported on 02/22/2025), Disp:, Rfl: insulin syringe-needle U-100 31G X 5/16 0.3 mL misc, 3 INJECTIONS DAILY, Disp: , Rfl: lisinopril 10 MG tablet, Take 10 mg by mouth 1 (one) time each day. (Patient not taking: Reported on 02/22/2025), Disp: , Rfl: metFORMIN XR (Glucophage-XR) 500 MG 24 hr tablet, Take 1 tablet (500 mg) by mouth 1 (one) time eachday with dinner. (Patient not taking: Reported on 02/22/2025), Disp: , Rfl: NovoLOG MIX 70/30 FLEXPEN (70-30) 100 UNIT/ML injection pen, Inject 5 Units under the skin as needed. (Patient not taking: Reported on 02/22/2025), Disp: , Rfl: Ozempic, 0.25 or 0.5 MG/DOSE, 2 MG/3ML solution pen-injector, , Disp: , Rfl: potassium chloride CR (Klor-Con M20) 20 MEQ ER tablet, , Disp: , Rfl: psyllium (Metamucil Smooth Texture) 58.6 % powder, Take 1 packet by mouth daily., Disp: 1040 g, Rfl: 0 UltiCare Insulin Syringe 31G X 5/16 1 ML misc, USE WITH INJECTIONS THREE TIMES DAILY (Patient not taking: Reported on 02/22/2025), Disp: , Rfl: Cosigned by Ollie Calvo MD at 02/26/2025 2:56 PM EDT Associated attestation - Ollie Calvo MD - 02/26/2025 2:56 PM EDT I saw and evaluated the patient with the resident/fellow. I discussed the case with the resident/fellow and agree with the findings and plan as documented. Ollie Calvo MD documented in this encounter Plan of Treatment Scheduled Orders Name Type Priority Associated Diagnoses Orde r Schedule EGD Endoscopy Routine End-stage liver disease (CMS/HCC) Expected: 02/22/2025 (Approximate), Expires: 08/26/2026 US Abdomen Imaging Routine End-stage liver disease (CMS/HCC) Expected: 02/22/2025 (Approximate), Expires: 08/25/2026 Scheduled Referrals Name Type Priority Associated Diagnoses Order Schedule Ambulatory referral to Physical Therapy Outpatient Referral Routine End-stage liver disease (CMS/HCC) 1 Occurrences starting 02/22/2025 until 08/26/2026 documented as of this encounter Visit Diagnoses Diagnosis End-stage liver disease (CMS/HCC)- Primary Other sequelae of chronic liver disease 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) Esophageal varices without mention of bleeding Portal hypertension (CMS/HCC) Portal hypertension Other ascites GERMÁN (acute kidney injury) (CMS/HCC) documented in this encounter Additional Health Concerns Assessment Noted Time A fall risk assessment has been complete d for the patient 02/22/2025 8:10 AM EDT A Body Mass Index follow-up plan has been documented for the patient 02/26/2025 2:56 PM EDT documented as of this encounter Care Teams Mechanical Reliability Engineer Relationship Specialty Start Date End Date Monika Hernandez APRN [address] [facility] [place] [address] PCP - General 01/19/25 Sary Brannon APRN [address] [place] [address] Referring Physician Gastroenterology 01/07/25 documented as of this encounter
[2025-03-25 08:48] LABS: Microscopic, Urine URINE MICROSCOPIC (MICROSCOPIC)
--- OUTSIDE RECORDS SUMMARY | 2025-03-25 08:49 | XMS_ITS | Clinical Summary ---
[facility] Address [address] [place] [address] Care Team Providers Care Tool And Gauge Inspector Name Role Phone Sherri Adkins APRN Primary [...] VACCINE 04/27/2025 Insurance [employer] Care Teams Tool And Gauge Inspector Relationship Specialty Start Date End Date Sherri Adkins APRN [address] [place] [address] PCP - General Family Medicine 03/12/16
--- OUTSIDE RECORDS SUMMARY | 2025-03-25 08:49 | XMS_ITS | Encounter Summary ---
Author Organization Healthcare Address [address] [place] [address] Care Team Providers Care Addiction Medicine Physician Name Role Phone Larry Bedolla MD Primary Care Provider + [phone] Sary Brannon APRN Unavailable [phone] Monika Hernandez APRN Primary Care Provider + [phone] Encounter Details Date Type Department Care Team (Late st Contact Info) Description 12/10/2024 Orders Only External Location [address] [place] [address] Provider, External Social History Tobacco Use Types [...] documented as of this encounter Care Teams Addiction Medicine Physician Relationship Specialty Start Date End Date Larry Bedolla MD [address] [place] [address] PCP - General 12/08/20 01/18/25 Monika Hernandez APRN [address] [place] [address] PCP - General 01/19/25 Sary Brannon APRN 1210 [facility] [address] [place] [address] Referring Physician Gastroenterology 01/07/25 documented as of this encounter
--- OUTSIDE RECORDS SUMMARY | 2025-03-25 08:49 | XMS_ITS | Encounter Summary ---
Author Organization Healthcare Address [address] [place] [address] Care Team Providers Care Relaster Name Role Phone Larry Bedolla MD Primary Care Provider + [phone] Sary Brannon APRN Unavailable [phone] Monika Hernandez APRN Primary Care Provider [phone] Encounter Details Date Type Department Care Team (Late st Contact Info) Description 12/31/2024 Orders Only External Location [address] [place] [address] Monika Hernandez APRN [address], [place] [id number] Social History Tobacco Use Types Packs/Day Years [...] 12/31/2024 7:33 AM EDT Monika Hernandez APRN [facility] US PROCEDURES Final Result documented in this encounter Visit Diagnoses Not on filedocumented in this encounter Additional Health Concerns Assessment Noted Time A fall risk assessment has been complete d for the patient 01/02/2022 1:17 PM EDT A Body Mass Index follow-up plan has been documented for the patient 11/13/2022 11:41 AM EDT documented as of this encounter Care Teams Relaster Relationship Specialty Start Date End Date Larry Bedolla MD [address] [place] [address] PCP - General 12/08/20 01/18/25 Monika Hernandez APRN [address] [place] [address] PCP - General 01/19/25 Sary Brannon APRN 12[address] [facility] [address] [place] [address] Referring Physician Gastroenterology 01/07/25 documented as of this encounter
--- OUTSIDE RECORDS SUMMARY | 2025-03-25 08:49 | XMS_ITS | Clinical Summary ---
Author Organization [employer] ([place], [place], [place], [place]) Address [address] [place] [address] Care Team Providers Care Wood Car Builder Name Role Phone Provider, Not In System [...] your living situation today? [facility] 11/30/2024 Think about [...] Do you speak a language other than [place]i at [facility]? No 11/30/2024 Do you want help with [...] 05/13/2021, 04/15/2021, 11/08/2020 Medicare IPPE ([facility]) [id number] 07/28/2024 Influenza Vaccine (#1) 2025 [...] - 5.6 % 11/30/2024 9:17 AM EDT [facility] Comment: Hemoglobin A1C levels are related to mean glucose during the preceding 2-3 months. Less than 7% demonstrates glycemic control in diabetic patients. Hemoglobin AlC % Suggested Diagnosis > or = 6.5 Diabetic 5.7 - 6.4 Prediabetic <5.7 Non-diabetic eAVG Glucose 93.93 70 - 126 mg/dL 11/30/2024 9:17 AM EDT [facility] Blood Venipuncture / Unknown 11/30/2024 8:20 AM EDT 11/30/2024 9:07 AM EDT Mikhail Hurtado MD LAB BLOOD ORDERABLES Final Resul t [facility] [address] [phone] from Last 3 Months or Most Recently Relevant to Health Maintenance Insurance [facility] ADV [facility] Advance Directives For more information, please contact: [phone] * Full Code (Latest Code Status on File) Date Activated Date Inactivated Comments 11/30/2024 2:06 AM 12/14/2024 6:30 PM Care Teams Wood Car Builder Relationship Specialty Start Date End Date Provider, Not In System [place] PCP - General 12/14/24
--- OUTSIDE RECORDS SUMMARY | 2025-03-25 08:49 | XMS_ITS | Encounter Summary ---
Author Organization Healthcare Address [address] [place] [address] Care Team Providers Care Tobacco Stripping Machine Operator Name Role Phone Larry Bedolla MD Primary Care Provider + [phone] Sary Brannon APRN Unavailable [phone] Monika Hernandez APRN Primary Care Provider + [phone] Encounter Details Date Type Department Care Team (Late st Contact Info) Description 01/21/2022 Community [facility] [address] [place] [address] Larry Bedolla MD [address] [place], [place] [id number] Central stenosis of spinal canal (Primary Dx) [...] documented as of this encounter Care Teams Tobacco Stripping Machine Operator Relationship Specialty Start Date End Date Larry Bedolla MD [address] [place] [address] PCP - General 12/08/20 01/18/25 Monika Hernandez APRN [address] [place], [place] [id number] PCP - General 01/19/25 Sary Brannon APRN 1210 [facility] [address] [place] [address] Referring Physician Gastroenterology 01/07/25 documented as of this encounter
--- OUTSIDE RECORDS SUMMARY | 2025-03-25 08:49 | XMS_ITS | Encounter Summary ---
Author Organization Healthcare Address [address] [place] [address] Care Team Providers Care Regional Owner Operator Truck Driver Name Role Phone Larry Bedolla MD Primary Care Provider + [phone] Sary Brannon APRN Unavailable [phone] Monika Hernandez APRN Primary Care Provider [phone] Reason for Referral * Consultation (Routine) - Closed Specialty Diagnoses / Procedures Referred By Mayela may Referred To Contact Hepatology Diagnoses Bilious vomiting with nausea Anticentromere antibodies present Thrombopenia (CMS/HCC) Stage 3 hepatic fibrosis Raul Kincaid PA [address] [place] [address] Phone: tel: fax: Referral ID Status Reason Start Date Expiration Date V isits Requested Visits Authorized [id number] Closed Specialty Services Required 09/27/2021 03/29/2023 1 1 Encounter Details Date Type Department Care Team (Late st Contact Info) Description 09/27/2021 Community [facility] Community Practice [address] [place] [address] Raul Kincaid PA [address] [place] [address] Bilious vomiting with nausea (Primary Dx); [...] fibrosis documented in this encounter Care Teams Regional Owner Operator Truck Driver Relationship Specialty Start Date End Date Larry Bedolla MD [address] [place] [address] PCP - General 12/08/20 01/18/25 Monika Hernandez APRN [address] [place] [address] PCP - General 01/19/25 Sary Brannon APRN 1210 [facility] [address] [place] [address] Referring Physician Gastroenterology 01/07/25 documented as of this encounter
--- OUTSIDE RECORDS SUMMARY | 2025-03-25 08:49 | XMS_ITS | Encounter Summary ---
Author Organization Healthcare Address [address] [place] [address] Care Team Providers Care Quarter Supervisor Name Role Phone Larry Bedolla MD Primary Care Provider + [phone] Sary Brannon APRN Unavailable [phone] Monika Hernandez APRN Primary Care Provider + [phone] Encounter Details Date Type Department Care Team (Late st Contact Info) Description 12/10/2024 Orders Only External Location [address] [place] [address] Provider, External Social History Tobacco Use Types [...] documented as of this encounter Care Teams Quarter Supervisor Relationship Specialty Start Date End Date Larry Bedolla MD [address] [place] [address] PCP - General 12/08/20 01/18/25 Monika Hernandez APRN [address] [place] [address] PCP - General 01/19/25 Sary Brannon APRN 1210 [facility] [address] [place] [address] Referring Physician Gastroenterology 01/07/25 documented as of this encounter
--- OUTSIDE RECORDS SUMMARY | 2025-03-25 08:49 | XMS_ITS | Referral Summary ---
Author Organization [employer] ([place], [place], [place], [place]) Address [address] [place] [address] Care Team Providers Care Qa Architect Name Role Phone Provider, Not In System [...] your living situation today? I have a [facility] place to live 11/30/2024 Think about [...] Do you speak a language other than [place] at [facility]? No 11/30/2024 Do [...] 5.6 % 11/30/2024 9:[address] [facility] Comment: Hemoglobin A1C levels are related to mean glucose during the preceding 2-3 months. Less than 7% demonstrates glycemic control in diabetic patients. Hemoglobin AlC % Suggested Diagnosis > or = 6.5 Diabetic 5.7 - 6.4 Prediabetic <5.7 Non-diabetic eAVG Glucose 93.93 70 - 126 mg/dL 11/30/2024 9:[address] [facility] Blood Venipuncture / Unknown 11/30/2024 8:20 AM EDT 11/30/2024 9:07 AM EDT us Mikhail Hurtado MD LAB BLOOD ORDERABLES Final Resul t [facility] [address] [place] [address], [facility] [phone] from Last 3 Months or Most Recently Relevant to Health Maintenance Insurance [facility] ADV [facility] Advance Directives For more information, please contact: [phone] * Full Code (Latest Code Status on File) Date Activated Date Inactivated Comments 11/30/2024 2:06 AM 12/14/2024 6:30 PM Care Teams Qa Architect Relationship Specialty Start Date End Date Provider, Not In System [place] PCP - General 12/14/24
--- OUTSIDE RECORDS SUMMARY | 2025-03-25 08:49 | XMS_ITS | Encounter Summary ---
Author Organization Healthcare Address [address] [place] [id number] Care Team Providers Care Dramatic Critic Name Role Phone Sary Brannon APRN Unavailable [phone] Monika Hernandez APRN Primary Care Provider [phone] Encounter Details Date Type Department Care Team [...] documented as of this encounter Care Teams Dramatic Critic Relationship Specialty Start Date End Date Monika Hernandez APRN [address] [place] [address] PCP - General 01/19/25 Sary Brannon APRN [address] [place] [address] [place] [address] Referring Physician Gastroenterology 01/07/25 documented as of this encounter
--- OUTSIDE RECORDS SUMMARY | 2025-03-25 08:49 | XMS_ITS | Encounter Summary ---
Author Organization Healthcare Address [address] 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, unspecified vessel or lesion type (CMS/[facility]) Social History Tobacco Use Types Packs/Day Years [...] (mild) Microalbuminuria Proteinuria 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, unspecified vessel or lesion type (CMS/HCC) documented in this encounter Additional Health Concerns Assessment Noted Time A fall risk assessment has been complete d for the patient 01/02/2022 1:17 PM EDT A Body Mass Index follow-up plan has been documented for the patient 11/13/2022 11:41 AM EDT documented as of this encounter Care Teams Clock Assembler Relationship Specialty Start Date End Date Larry Bedolla MD [address] [place] [address] PCP - General 12/08/20 01/18/25 Monika Hernandez APRN [address] [place] [address] PCP - General 01/19/25 Sary Brannon APRN 1210 [facility] [address] [place] [address] Referring Physician Gastroenterology 01/07/25 documented as of this encounter
--- OUTSIDE RECORDS SUMMARY | 2025-03-25 08:49 | XMS_ITS | Encounter Summary ---
Author Organization Healthcare Address [address] [place] [address] Care Team Providers Care Review Specialist Name Role Phone Larry Bedolla MD Primary Care Provider + [phone] Sary Brannon APRN Unavailable [phone] Monika Hernandez APRN Primary Care Provider + [phone] Encounter Details Date Type Department Care Team (Late st Contact Info) Description 12/07/2024 Orders Only External Location [address] [place] [address] Provider, External Social History Tobacco Use Types [...] documented as of this encounter Care Teams Review Specialist Relationship Specialty Start Date End Date Larry Bedolla MD [address] [place] [address] PCP - General 12/08/20 01/18/25 Monika Hernandez APRN [address] [place] [address] PCP - General 01/19/25 Sary Brannon APRN 1210 [facility] [address] [place] [address] Referring Physician Gastroenterology 01/07/25 documented as of this encounter
--- OUTSIDE RECORDS SUMMARY | 2025-03-25 08:49 | XMS_ITS | Encounter Summary ---
Author Organization [facility] Address [address] [place] [address] Care Team Providers Care Nursing Unit Manager Name Role Phone Sary Brannon RESEARCH TECHNICIAN Unavailable [phone] Monika Hernandez APRN Primary Care Provider + [phone] Reason for Visit * Reason Comments Appointment Confirmation and rem inders Encounter Details Date Type Department Care Team (Late st Contact Info) Description 02/17/2025 Telephone [facility] [address] [place] [id number] Jessica Simms [place] [phone] Appointment (Confirmation and reminders) Social History Tobacco [...] documented as of this encounter Care Teams Nursing Unit Manager Relationship Specialty Start Date End Date Monika Hernandez APRN [address] [place] [address] PCP - General 01/19/25 Sary Brannon APRN 1210 [facility] [address] [place] [address] Referring Physician Gastroenterology 01/07/25 documented as of this encounter
--- OUTSIDE RECORDS SUMMARY | 2025-03-25 08:49 | XMS_ITS | Encounter Summary ---
Author Organization Healthcare Address [address] [place] [address] Care Team Providers Care Support Architect Name Role Phone Larry Bedolla MD Primary Care Provider + [phone] Sary Brannon APRN Unavailable [phone] Monika Hernandez APRN Primary Care Provider + [phone] Encounter Details Date Type Department Care Team (Late st Contact Info) Description 12/09/2024 Orders Only External Location [address] [place] [address] Provider, External Social History Tobacco Use Types [...] documented as of this encounter Care Teams Support Architect Relationship Specialty Start Date End Date Larry Bedolla MD [address] [place] [address] PCP - General 12/08/20 01/18/25 Monika Hernandez APRN [address] [place] [address] PCP - General 01/19/25 Sary [address] [facility] [address] [place] [address] Referring Physician Gastroenterology 01/07/25 documented as of this encounter
--- OUTSIDE RECORDS SUMMARY | 2025-03-25 08:49 | XMS_ITS | Encounter Summary ---
Author Organization Healthcare Address [address] [place] [address] Care Team Providers Care Logging Crew Supervisor Name Role Phone Larry Bedolla MD Primary Care Provider + [phone] Sary Brannon APRN Unavailable [phone] Monika Hernandez APRN Primary Care Provider + [phone] Encounter Details Date Type Department Care Team (Late st Contact Info) Description 12/04/2024 Orders Only External Location [address] [place] [address] Provider, External Social History Tobacco Use Types [...] documented as of this encounter Care Teams Logging Crew Supervisor Relationship Specialty Start Date End Date Larry Bedolla MD [address] [place] [address] PCP - General 12/08/20 01/18/25 Monika Hernandez APRN [address] [place] [address] PCP - General 01/19/25 Sary Brannon APRN 1210 [facility] [address] [place] [address] Referring Physician Gastroenterology 01/07/25 documented as of this encounter
--- OUTSIDE RECORDS SUMMARY | 2025-03-25 08:49 | XMS_ITS | Clinical Summary ---
Author Organization [facility] [place] [address] Care Team Providers Care Financial Planning Consultant Name Role Phone Unavailable Primary Care Provider [...]
--- OUTSIDE RECORDS SUMMARY | 2025-03-25 08:49 | XMS_ITS | Encounter Summary ---
Author Organization Healthcare Address [address] [place] [address] Care Team Providers Care Tool Planer Set Up Operator Name Role Phone Larry Bedolla MD Primary Care Provider + [phone] Sary Brannon ABSEILING INSTRUCTOR Unavailable [phone] Monika Hernandez APRN Primary Care Provider [phone] Reason for Visit * Reason Comments Med Refill Encounter Details Date Type Department Care Team (Late st Contact Info) Description 04/12/2021 [facility]ill [facility] [address] [place] [address] Lina Lowe, ABSEILING INSTRUCTOR [address] [facility] [address] [place] [address] Social History Tobacco Use Types [...] on filedocumented in this encounter Care Teams Tool Planer Set Up Operator Relationship Specialty Start Date End Date Larry Bedolla MD [address] [place], [place] [address] PCP - General 12/08/20 01/18/25 Monika Hernandez APRN [address] [place] [address] PCP - General 01/19/25 Sary Brannon APRN 1210 [facility] [address] [place] [address] Referring Physician Gastroenterology 01/07/25 documented as of this encounter
--- OUTSIDE RECORDS SUMMARY | 2025-03-25 08:49 | XMS_ITS | Encounter Summary ---
Author Organization Healthcare Address [address] [place] [address] Care Team Providers Care Electric Shovel Operator Name Role Phone Larry Bedolla MD Primary Care Provider + [phone] Sary Brannon APRN Unavailable [phone] Monika Hernandez APRN Primary Care Provider + [phone] Encounter Details Date Type Department Care Team (Late st Contact Info) Description 12/06/2024 Orders Only External Location [address] [place] [address] Provider, External Social History Tobacco Use Types [...] as of this encounter Care Teams Electric Shovel Operator Relationship Specialty Start Date End Date Larry Bedolla MD [address] [place] [address] PCP - General 12/08/20 01/18/25 Monika Hernandez APRN [address] [place] [address] PCP - General 01/19/25 Sary Brannon APRN 1210 [facility] [address] [place] [address] Referring Physician Gastroenterology 01/07/25 documented as of this encounter
--- OUTSIDE RECORDS SUMMARY | 2025-03-25 08:50 | XMS_ITS | Encounter Summary ---
Author Organization Healthcare Address [address] [place] [address] Care Team Providers Care Manager Sales Support Name Role Phone Larry Bedolla MD Primary Care Provider + [phone] Sary Brannon APRN Unavailable [phone] Monika Hernandez APRN Primary Care Provider + [phone] Encounter Details Date Type Department Care Team (Late st Contact Info) Description 12/03/2024 Orders Only External Location [address] [place] [address] Provider, External Social History Tobacco Use Types [...] as of this encounter Care Teams Manager Sales Support Relationship Specialty Start Date End Date Larry Bedolla MD [address] [place] [address] PCP - General 12/08/20 01/18/25 Monika Hernandez APRN [address] [place] [address] PCP - General 01/19/25 Sary Brannon APRN 1210 [facility] [address] [place] [address] Referring Physician Gastroenterology 01/07/25 documented as of this encounter
--- OUTSIDE RECORDS SUMMARY | 2025-03-25 08:50 | XMS_ITS | Encounter Summary ---
Author Organization Healthcare Address [address] [place] [address] Care Team Providers Care Tractor Sweeper Driver Name Role Phone Larry Bedolla MD Primary Care Provider + [phone] Sary Brannon APRN Unavailable [phone] Monika Hernandez APRN Primary Care Provider + [phone] Encounter Details Date Type Department Care Team (Late st Contact Info) Description 11/29/2024 Orders Only External Location [address] [place] [address] Provider, External Social History Tobacco Use Types [...] documented as of this encounter Care Teams Tractor Sweeper Driver Relationship Specialty Start Date End Date Larry Bedolla MD [address] [place] [address] PCP - General 12/08/20 01/18/25 Monika Hernandez APRN [address] [place] [address] PCP - General 01/19/25 Sary Brannon APRN [address] [place] [address] [address] [place] [address] Referring Physician Gastroenterology 01/07/25 documented as of this encounter
--- OUTSIDE RECORDS SUMMARY | 2025-03-25 08:50 | XMS_ITS | Encounter Summary ---
Author Organization Healthcare Address [address] [place] [address] Care Team Providers Care Filling Room Operator Name Role Phone Larry Bedolla MD Primary Care Provider + [phone] Sary Brannon APRN Unavailable [phone] Monika Hernandez APRN Primary Care Provider + [phone] Encounter Details Date Type Department Care Team (Late st Contact Info) Description 11/30/2024 Orders Only External Location [address] [place] [address] Provider, External Social History Tobacco Use Types [...] documented as of this encounter Care Teams Filling Room Operator Relationship Specialty Start Date End Date Larry Bedolla MD [address] [place] [address] PCP - General 12/08/20 01/18/25 Monika Hernandez APRN [address] [place] [address] PCP - General 01/19/25 Sary Brnanon APRN 1210 [facility] [address] [place] [address] Referring Physician Gastroenterology 01/07/25 documented as of this encounter
--- OUTSIDE RECORDS SUMMARY | 2025-03-25 08:50 | XMS_ITS | Encounter Summary ---
Author Organization Healthcare Address [address] [place] [address] Care Team Providers Care Data Acquisition Technician Name Role Phone Larry Bedolla MD Primary Care Provider + [phone] Sary Brannon APRN Unavailable [phone] Monika Hernandez APRN Primary Care Provider + [phone] Encounter Details Date Type Department Care Team (Late st Contact Info) Description 12/02/2024 Orders Only External Location [address] [place] [address] Provider, External Social History Tobacco Use Types [...] documented as of this encounter Care Teams Data Acquisition Technician Relationship Specialty Start Date End Date Larry Bedolla MD [address] [place] [address] PCP - General 12/08/20 01/18/25 Monika Hernandez APRN [address] [place] [address] PCP - General 01/19/25 Sary Brannon APRN [address] [place] [address] [address] [place] [address] Referring Physician Gastroenterology 01/07/25 documented as of this encounter
--- OUTSIDE RECORDS SUMMARY | 2025-03-25 08:50 | XMS_ITS | Clinical Summary ---
Author Organization Healthcare Address [address] [place] [address] Care Team Providers Care Manager Community Name Role Phone Sary Brannon STORE OPERATIONS MANAGER Unavailable [phone] Monika Hernandez APRN Primary Care Provider [phone] Allergies No known active allergies Medications bisoprolol [...] 3 INJECTIONS DAILY 11/11/19 Active HYDROcodone-acetam inophen ([place]) 10-325 MG tablet 10/24/19 Active spironolactone (Aldactone) 25 MG tablet Take 0.5 tablets by mouth daily. 10/03/19 Active furosemide (Lasix) 40 MG tablet Take by mouth 2 (two) times a day. 10/03/19 Active Insulin Lispro (HUMALOG IJ) Inject as directed. 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); Portal hypertension (CMS/HCC); Other ascites; GERMÁN (acute kidney injury) (CMS/HCC) 02/22/2025 Travel 02/17/2025 Telephone [facility] [address] [address] Jessica Simms Appointment (Confirmation and reminders) 01/19/2025 Telephone [facility] [address] [address] Jessica Simms Appointment (scheduling) 01/07/2025 Telephone [facility] [place] [address] [address] Kasey Dye Referral - Liver Txp 01/03/2025 Community Orders Community Practice [address] [place] [address] Sary Brannon APRN 12/31/2024 Orders Only External Location [address] [place] [address] Monika Hernandez APRN from Last 3 Months [...] 06/04/2022 01/02/2022, 11/21/2021 [facility]-Depression Screening 01/02/2023 01/02/2022 [id number] Vaccine ( season) 2024 05/13/2021, 04/15/2021, 11/08/2020 [...] >= 12 mIU/mL 02/22/2025 8:44 AM EDT [facility] Comment: Nonreactive. Individual is considered not immune to HBV infection. Blood Venous blood specimen / Unknown Venipuncture / Unknown 02/22/2025 7:18 AM EDT 02/22/2025 7:48 AM EDT us Edil Kiran MD LAB BLOOD ORDERABLES Final Resul t [facility] [address] [place] [address] * Alpha fetoprotein, serum (02/22/2025 7:18 AM EDT) Alpha Fetoprotein, Serum <2.3 <10.0 ng/mL 02/22/2025 8:25 AM EDT [facility] Blood Venous blood specimen / Unknown Venipuncture / Unknown 02/22/2025 7:18 AM EDT 02/22/2025 7:48 AM EDT Narrative [facility] - 02/22/2025 8:25 AM EDT Performed by Stone electrochemiluminescent immunoassay which is traceable to the 1st AFP IRP WHO Reference standard 72/255. Results obtained with different test methods or kits cannot be used interchangeably. us Edil Kiran MD LAB BLOOD ORDERABLES Final Resul t Performing Organization Address [facility] [place] [address] * (ABNORMAL) Hepatitis A Antibody IgG (02/22/2025 7:18 AM EDT) Pathologist [facility] Hepatitis A Antibody IgG Positive(A ) Negative 02/22/2025 8:44 AM EDT [facility] Blood Venous blood specimen / Unknown Venipuncture / Unknown 02/22/2025 7:18 AM EDT 02/22/2025 7:48 AM EDT us Edil Kiran MD LAB BLOOD ORDERABLES Final Resul t Performing Organization Address [facility] Co de Phone Number [facility] [address] [place] [address] * Hepatitis C Antibody (02/22/2025 7:18 AM EDT) Hepatitis C Antibody Negative Negative 02/22/2025 8:29 AM EDT [facility] Blood Venous blood specimen / Unknown Venipuncture / Unknown 02/22/2025 7:18 AM EDT 02/22/2025 7:48 AM EDT us Edil Kiran MD LAB BLOOD ORDERABLES Final Resul t Performing Organization Address [facility] Co de Phone Number [facility] [address] [place] [address] * Nicotine Cotinine Metabolite (02/22/2025 7:18 AM EDT) NICOTINE <5 <5 ng/mL 02/24/2025 2:3 4 PM EDT [facility] Cotinine <5 <5 ng/mL 02/24/2025 2:3 4 PM EDT [facility] Blood Venous blood specimen / Unknown Venipuncture / Unknown 02/22/2025 7:18 AM EDT 02/22/2025 7:46 AM EDT Narrative [facility] - 02/24/2025 2:34 PM EDT Testing performed by LC-MS/MS at the [facility] Special Chemistry/Toxicology Laboratory. This test was developed and its performance characteristics determined by [facility]. This assay has not been cleared by the FDA. The laboratory is regulated under CLIA as qualified to perform high-complexity testing. This test is used for clinical purposes. Edil Kiran MD LAB BLOOD ORDERABLES Final Resul t [facility] [address] [place] [address] * ABO/Rh (02/22/2025 7:18 AM EDT) ABO/Rh O Positive 02/22/2025 7:14 AM EDT BLOOD BANK Blood Venous blood specimen / Unknown Venipuncture / Unknown 02/22/2025 7:18 AM EDT 02/22/2025 7:46 AM EDT Edil Kiran MD LAB BLOOD BANK TEST ORDERABLES F inal Result BLOOD BANK [address] [place] [address] * Hepatitis B Surface Antigen (02/22/2025 7:18 AM EDT) Hepatitis B Surf Antigen Negative Negative 02/22/2025 8:[address] [facility] Blood Venous blood specimen / Unknown Venipuncture / Unknown 02/22/2025 7:18 AM EDT 02/22/2025 7:48 AM EDT Edil Kiran MD LAB BLOOD ORDERABLES Final Resul t Performing Organization Address [facility] de Phone Number [facility] [address] [place] [address] * (ABNORMAL) Protime-INR (02/22/2025 7:18 AM EDT) Prothrombin Time 18.7(H) 12.0 - 14.3 sec LAB COAGULATION METHOD 02/22/2025 8:04 AM EDT [facility] INR 1.6(H) 0.9 - 1.1 LAB COAGULATION METHOD 02/22/2025 8:04 AM EDT [facility] Blood Venous blood specimen / Unknown Venipuncture / Unknown 02/22/2025 7:18 AM EDT 02/22/2025 7:46 AM EDT Narrative [facility] - 02/22/2025 8:04 AM EDT OPTIMAL INR RANGES FOR PATIENT ON ORAL ANTICOAGULANT THERAPY Prevention of venous thromboembolism INR 2.0 to 3.0 In patients with heart disease: Atrial fibrillation INR 2.0 to 3.0 Valvular heart disease INR 2.0 to 3.0 Tissue heart valves INR 2.0 to 3.0 Mechanical prosthetic valves INR 2.5 to 3.5 Prevention of recurrent [place] INR 2.5 to 3.5 Edil Kiran MD LAB BLOOD ORDERABLES Final Resul t Performing Organization Address [facility] Co de Phone Number [facility] [address] [place] [address] * (ABNORMAL) Hemogram (CBC) (02/22/2025 7:18 AM EDT) WBC Count 2.35(L) 3.70 - 10.30 10*3/uL LAB HEMATOLOGY METHOD 02/22/2025 9:33 AM EDT [facility] RBC Count 3.33(L) 3.90 - 5.20 10*6/uL LAB HEMATOLOGY METHOD 02/22/2025 9:33 AM EDT [facility] HGB 10.2(L) 11.2 - 15.7 g/dL LAB HEMATOLOGY METHOD 02/22/2025 9:33 AM EDT [facility] HCT 31.8(L) 34.0 - 45.0 % LAB HEMATOLOGY METHOD 02/22/2025 9:33 AM EDT [facility] Platelet Count 75(L) 155 - 369 10*3/uL LAB HEMATOLOGY METHOD 02/22/2025 9:33 AM EDT [facility] MCV 96 79 - 98 fL LAB HEMATOLOGY METHOD 02/22/2025 9:33 AM EDT [facility] MCH 30.6 26.0 - 32.0 pg LAB HEMATOLOGY METHOD 02/22/2025 9:33 AM EDT [facility] MCHC 32.1 30.7 - 35.5 g/dL LAB HEMATOLOGY METHOD 02/22/2025 9:33 AM EDT [facility] RDW 15.7(H) 11.5 - 14.5 % LAB HEMATOLOGY METHOD 02/22/2025 9:33 AM EDT [facility] MPV 10.5 8.8 - 12.5 fL LAB HEMATOLOGY METHOD 02/22/2025 9:33 AM EDT [facility] nRBC 0.0 <=0.0 per 100 WBCs LAB HEMATOLOGY METHOD 02/22/2025 9:33 AM EDT [facility] Blood Venous blood specimen / Unknown Venipuncture / Unknown 02/22/2025 7:18 AM EDT 02/22/2025 7:41 AM EDT us Edil Kiran MD LAB BLOOD ORDERABLES Final Resul t [facility] [address] [place] [address] * (ABNORMAL) Comprehensive metabolic panel (02/22/2025 7:18 AM EDT) Glucose, Plasma 283(H) 74 - 99 mg/dL 02/22/2025 8:16 AM EDT [facility] BUN, Plasma 30(H) 8 - 23 mg/dL 02/22/2025 8:16 AM EDT [facility] Creatinine, Plasma 2.54(H) 0.60 - 1.10 mg/dL 02/22/2025 8:16 AM EDT [facility] BUN/Creatinine Ratio 12 02/22/2025 8:16 AM EDT [facility] Sodium, Plasma 137 136 - 145 mmol/L 02/22/2025 8:16 AM EDT [facility] Potassium, Plasma 4.3 3.6 - 4.9 mmol/L 02/22/2025 8:16 AM EDT [facility] Chloride, Plasma 105 97 - 107 mmol/L 02/22/2025 8:16 AM EDT [facility] CO2, Plasma 24 22 - 29 mmol/L 02/22/2025 8:16 AM EDT [facility] Anion Gap 8 6 - 16 mmol/L 02/22/2025 8:16 AM EDT [facility] Total Calcium, Plasma 8.6(L) 8.9 - 10.2 mg/dL 02/22/2025 8:16 AM EDT [facility] Total Protein 7.2 6.3 - 7.9 g/dL 02/22/2025 8:16 AM EDT [facility] Albumin, Plasma 2.9(L) 3.5 - 5.2 g/dL 02/22/2025 8:16 AM EDT [facility] AST, Plasma 37(H) 10 - 35 U/L 02/22/2025 8:16 AM EDT [facility] ALT, Plasma 15 10 - 35 U/L 02/22/2025 8:16 AM EDT [facility] Alkaline Phosphatase, Plasma 121 46 - 142 U/L 02/22/2025 8:16 AM EDT [facility] Total Bilirubin, Plasma 0.9 0.2 - 1.1 mg/dL 02/22/2025 8:16 AM EDT [facility] eGFRcr 20.9 mL/min/1.7 3m*2 02/22/2025 8:16 AM EDT [facility] Comment:Reported eGFRcr in m L/min/1.73m2 is based the CKD-EPI 2020 equation that does not use a race coefficient. Blood Venous blood specimen / Unknown Venipuncture / Unknown 02/22/2025 7:18 AM EDT 02/22/2025 7:47 AM EDT Edil Kiran MD LAB BLOOD ORDERABLES Final Resul t [facility] [address] [place] [address] * Creatinine, Plasma (01/03/2025) External Creatinine Blood 3.00 mg/dL Blood Venous blood specimen / Unknown 01/03/2025 Historical Provider LAB BLOOD ORDERABLES Final R esult * Sodium, Plasma (01/03/2025) External Sodium 144 mmol/L Blood Venous blood specimen / Unknown 01/03/2025 Historical Provider LAB BLOOD ORDERABLES Final R esult * Albumin, Plasma (01/03/2025) External Albumin 3.6 g/dL Blood Venous blood specimen / Unknown 01/03/2025 Result [facility] Provider LAB BLOOD ORDERABLES Final R esult * US OUTSIDE IMAGES (12/31/2024 7:33 AM EDT) Anatomical Region Laterality Modality Ultrasound 12/31/2024 7:33 AM EDT Result [facility] Monika Hernandez APRN IMG US [...] EDT 01/24/2016 6:17 PM EDT Sherri Adkins STORE OPERATIONS MANAGER LAB BLOOD ORDERABLES Final Result SUNQUEST from Last 3 Months or Most Recently Relevant to Health Maintenance Insurance [employer] MEDICAID [employer]ARE [employer]ICAID Care Teams Manager Community Relationship Specialty Start Date End Date Monika Hernandez APRN [address] [facility] [place] [address] PCP - General 01/19/25 Sary Brannon APRN 1210 [facility] [address] [place] [address] Referring Physician Gastroenterology 01/07/25
--- OUTSIDE RECORDS SUMMARY | 2025-03-25 08:50 | XMS_ITS | Encounter Summary ---
Author Organization Healthcare Address [address] [place] [address] Care Team Providers Care Pivot End Polisher Name Role Phone Larry Bedolla MD Primary Care Provider + [phone] Sary Brannon APRN Unavailable [phone] Monika Hernandez APRN Primary Care Provider + [phone] Encounter Details Date Type Department Care Team (Late st Contact Info) Description 04/30/2018 Orders Only External Location [address] [place] [address] Provider, External Social History Tobacco Use Types [...] on filedocumented in this encounter Care Teams Pivot End Polisher Relationship Specialty Start Date End Date Larry Bedolla MD [address] [place] [address] PCP - General 12/08/20 01/18/25 Monika Hernandez APRN [address] [place] [address] PCP - General 01/19/25 Sary Brannon APRN 1210 [facility] [address] [place] [address] Referring Physician Gastroenterology 01/07/25 documented as of this encounter
--- OUTSIDE RECORDS SUMMARY | 2025-03-25 08:50 | XMS_ITS | Encounter Summary ---
Author Organization Healthcare Address [address] [place] [address] Care Team Providers Care First Breaker Feeder Name Role Phone Larry Bedolla MD Primary Care Provider + [phone] Sary Brannon APRN Unavailable [phone] Monika Hernandez APRN Primary Care Provider + [phone] Encounter Details Date Type Department Care Team (Late st Contact Info) Description 10/26/2024 Orders Only External Location [address] [place] [address] Provider, External Social History Tobacco Use Types [...] documented as of this encounter Care Teams First Breaker Feeder Relationship Specialty Start Date End Date Larry Bedolla MD [address] [place] [address] PCP - General 12/08/20 01/18/25 Monika Hernandez APRN [address] [place] [address] PCP - General 01/19/25 Sary Br[address] [facility] [address] [place] [address] Referring Physician Gastroenterology 01/07/25 documented as of this encounter
--- OUTSIDE RECORDS SUMMARY | 2025-03-25 08:50 | XMS_ITS | Encounter Summary ---
Author Organization Healthcare Address [address] [place] [address] Care Team Providers Care Ammonia Distiller Name Role Phone Larry Bedolla MD Primary Care Provider + [phone] Sary Brannon APRN Unavailable [phone] Monika Hernandez APRN Primary Care Provider + [phone] Encounter Details Date Type Department Care Team (Late st Contact Info) Description 04/02/2017 Orders Only External Location [address] [place] [address] Provider, External Social History Tobacco Use Types [...] on filedocumented in this encounter Care Teams Ammonia Distiller Relationship Specialty Start Date End Date Larry Bedolla MD [address] [place] [address] PCP - General 12/08/20 01/18/25 Monika Hernandez APRN [address] [place] [address] PCP - General 01/19/25 Sary Brannon APRN 1210 [facility] [address] [place] [address] Referring Physician Gastroenterology 01/07/25 documented as of this encounter
--- OUTSIDE RECORDS SUMMARY | 2025-03-25 08:50 | XMS_ITS ---
Author Organization [facility] Address [address] [place] [address] Care Team Providers Care Flower Cheniller Name Role Phone Sary Brannon APRN Unavailable +[phone] Monika Hernandez APRN Primary Care Provider [phone] Transplant Episode Liver Candidate [facility] ([place], [place]) - JOSÉ LUIS Referred on 01/07/2025 Marked as Active on 01/07/2025 Liver CoordinatorMoraima Centeno RN Fax: N/A Email: N/A Scores Score Value Updated Expires Exceptions/Saloni sons CPRA Not available MELD (Calc) 22 02/22/2025 Care Team Name Role Phone Fax Email Moraima Centeno RN Liver Coordinator [phone] N/A N/A Sary Brannon APRN Referring Physician [phone] N/A Gem Clark Hand Candle Molder [phone] N/A N/A Edil Kiran MD Surgeon [phone] N/A Events Pre-Transplant Referred: 01/07/2025 Committee: 02/28/2025 Appointments (02/22/2025 - 04/25/2025) When With Visit Type Description 02/22/2025 Transplant - Surgeon, T Initial Clinic Evaluation 02/22/2025 Transplant - [facility] End-stage liver disease (CMS/HCC) 02/22/2025 Transplant - Theodora Calvo Initial Clinic Evaluation End-stage liver disease (CMS/HCC) (Primary Dx); 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
--- OUTSIDE RECORDS SUMMARY | 2025-03-25 08:50 | XMS_ITS | Encounter Summary ---
Author Organization Healthcare Address [address] [place] [address] Care Team Providers Care Local Area Network Systems Adminstrator Name Role Phone Larry Bedolla MD Primary Care Provider + [phone] Sary Brannon APRN Unavailable [phone] Monika Hernandez APRN Primary Care Provider + [phone] Encounter Details Date Type Department Care Team (Late st Contact Info) Description 11/30/2024 Orders Only External Location [address] [place] [address] Provider, External Social History Tobacco Use Types [...] documented as of this encounter Care Teams Local Area Network Systems Adminstrator Relationship Specialty Start Date End Date Larry Bedolla MD [address] [place] [address] PCP - General 12/08/20 01/18/25 Monika Hernandez APRN [address] [place] [address] PCP - General 01/19/25 Sary Brannon APRN 1210 [facility] [address] [place] [address] Referring Physician Gastroenterology 01/07/25 documented as of this encounter
--- OUTSIDE RECORDS SUMMARY | 2025-03-25 08:50 | XMS_ITS | Encounter Summary ---
Author Organization Healthcare Address [address] [place] [address] Care Team Providers Care Manager User Interface Name Role Phone Larry Bedolla MD Primary Care Provider + [phone] Sary Brannon APRN Unavailable [phone] Monika Hernandez APRN Primary Care Provider + [phone] Encounter Details Date Type Department Care Team (Late st Contact Info) Description 11/30/2024 Orders Only External Location [address] [place] [address] Provider, External Social History Tobacco Use Types [...] as of this encounter Care Teams Manager User Interface Relationship Specialty Start Date End Date Larry Bedolla MD [address] [place] [address] PCP - General 12/08/20 01/18/25 Monika Hernandez APRN [address] [place] [address] PCP - General 01/19/25 Sary Brannon APRN [address] [place] [address] Referring Physician Gastroenterology 01/07/25 documented as of this encounter
--- OUTSIDE RECORDS SUMMARY | 2025-03-25 08:50 | XMS_ITS | Encounter Summary ---
Author Organization Healthcare Address [address] [place] [address] Care Team Providers Care Primer Expeditor And Drier Name Role Phone Larry Bedolla MD Primary Care Provider + [phone] Sary Brannon HOUSING RELOCATION Unavailable [phone] Monika Hernandez APRN Primary Care Provider + [phone] Encounter Details Date Type Department Care Team (Late st Contact Info) Description 01/03/2025 [facility] [address] [place] [address] Sary Brannon, HOUSING RELOCATION [address] [place], [place] [id number] Social History Tobacco Use Types Packs/Day Years [...] documented as of this encounter Care Teams Primer Expeditor And Drier Relationship Specialty Start Date End Date Larry Bedolla MD [address] [place] [address] PCP - General 12/08/20 01/18/25 Monika Hernandez APRN [address] [place] [address] PCP - General 01/19/25 Sary Brannon APRN [address] [place] [address] Referring Physician Gastroenterology 01/07/25 documented as of this encounter
--- OUTSIDE RECORDS SUMMARY | 2025-03-25 08:50 | XMS_ITS | Encounter Summary ---
Author Organization Healthcare Address [address] [place] [address] Care Team Providers Care Geotechnical Laboratory Technician Name Role Phone Larry Bedolla MD Primary Care Provider + [phone] Sary Brannon APRN Unavailable [phone] Monika Hernandez APRN Primary Care Provider + [phone] Encounter Details Date Type Department Care Team (Late st Contact Info) Description 11/30/2024 Orders Only External Location [address] [place] [address] Provider, External Social History Tobacco Use Types [...] documented as of this encounter Care Teams Geotechnical Laboratory Technician Relationship Specialty Start Date End Date Larry Bedolla MD [address] [place] [address] PCP - General 12/08/20 01/18/25 Monika Hernandez APRN [address] [place] [address] PCP - General 01/19/25 Sary Brannon APRN 1210 [facility] [address] [place] [address] Referring Physician Gastroenterology 01/07/25 documented as of this encounter
[2025-03-25 09:15] LABS: Bilirubin,Urine Negative (Negative); Color,Urine YELLOW (Yellow); Glucose,Urine (UA) Negative (Negative); Ketones,Urine Negative (Negative); Leukocyte Esterase,Urine Negative (Negative); PH,Urine 6.0 (5.0-8.5); Protein,Urine Negative (Negative); Specific Gravity, Urine 1.020 (1.005-1.030); Urobilinogen,Urine 0.2 EU/dl (0.2)
[2025-03-25 09:35] LABS: Bacteria,Urine 1+ /lpf
[2025-03-25 09:36] LABS: Hyaline Casts,Urine OCC #/lpf (0)
== END 2025-03-25 23:59 | disposition home or self-care (01) ==
LOC: LAB 08:44
PROVIDERS: PCP Family Medicine; Visit Provider Internal Medicine Nephrology
DX: N17.9 Acute kidney failure, unspecified (principal)
CPT/HCPCS: 81001

== ENCOUNTER 2025-04-01 07:28 | Outpatient (CLI) | payer MEDICARE, MEDICAID, SELFPAY ==
--- OUTSIDE RECORDS SUMMARY | 2018-11-16 06:00 | XMS_ITS | Continuity of Care Document ---
Author Organization [facility] Address [address] [place] [phone] Phone Care Team Providers Care Mushroom Growing Supervisor Name Role Phone Dane Pink MD Unavailable [...] Copied on Encounter Connor [place] [facility], [address] [place] [address], [id number], [phone] JENNIFER Torres [place] No Information 9 Apryl Vela. [address] [place] [address], [id number] , . tel:[phone] OFFICE/OUTPA TIENT VISIT, EST Connor [place] [facility], [address] [place] [address], [address] [place] [address], tel:[phone] [place] inflammation ck OS (chief complaint) Iritis, recurrent, left eye 9 Apryl Vela. [address] [place] [address], [address] [place] [address] , . tel:[phone] Referring Provider: Self Referred Jose C Connor [place] [facility], [address] [place] [address], [id number], tel:[phone] JENNIFER Torres [place] Anterior Seg ck (chief complaint) Iritis, recurrent, left eye 9 Apryl Vela. [address] [place] [address], [id number] , . tel:[phone] Referring Provider: Maria Teresa Santos, [employer] [address] [place] [address], [facility]. tel:[phone] Family History Family Member Type Diagnosis Age At Onset Problem (finding) Family history of Diabe reynold mellitus Problem (finding) Family history of Cardi ovascular disease Problem (finding) Family history of glauc haroon Payers Payer name Insurance type Covered libertarian ID Authoriza tion(s) Medicare [facility] [id number] Social History Type Description Quantity Date Captured [...]
--- OUTSIDE RECORDS SUMMARY | 2025-02-22 09:20 | XMS_ITS | Encounter Summary ---
Author Organization Healthcare Address [address] [place] [address] Care Team Providers Care Stab Setter And Driller Name Role Phone Sary Brannon BAR TACKER Unavailable [phone] Monika Hernandez APRN Primary Care Provider [phone] Reason for Referral * Consultation (Routine) - Authorized Specialty Diagnoses / Procedures Referred By Contac t Referred To Contact Physical Therapy Diagnoses End-stage liver disease (CMS/HCC) Ollie Calvo MD [address] [address] Phone: tel: fax: Referral ID Status Reason Start Date Expiration Date Visits Requested Visits Authorized [id number] Authorized Consult and Treat 02/22/2025 08/24/2026 1 1 * Imaging (Routine) - Authorized Specialty Diagnoses / Procedures Referred By Contac t Referred To Contact Diagnoses End-stage liver disease (CMS/HCC) Procedures US Abdomen Ollie Calvo MD [address] [address] Phone: tel: fax: Referral ID Status Reason Start Date Expiration Date V isits Requested Visits Authorized [id number] Authorized 02/22/2025 08/24/2026 1 1 * Imaging (Routine) - Pending Review Specialty Diagnoses / Procedures Referred By Contmazin t Referred To Contact Gastroenterology Diagnoses End-stage liver disease (CMS/HCC) Procedures EGD Ollie Calvo MD [address] [address] Phone: tel: fax: Referral ID Status Reason Start Date Expiration Date Visits Requested Visits Authorized [id number] Pending Review Specialty Services Required 02/22/2025 08/24/2026 1 1 Reason for Visit * Reason Comments Pre-Liver Txp Follow-up * Consultation (Routine) - Closed Specialty Diagnoses / Procedures Referred By Mayela t Referred To Contact Transplant Diagnoses End-stage liver disease (CMS/HCC) Edil Kiran MD [address] [facility] [address] [place] [address] Phone: tel: fax: [facility] [place] [address] [address] Phone: tel: fax: Referral ID Status Reason Start Date Expiration Date V isits Requested Visits Authorized [id number] Closed Specialty Services Required 01/19/2025 07/21/2026 1 1 Encounter Details Date Type Department Care Team (Late st Contact Info) Description 02/22/2025 9:20 AM EDT Office Visit [facility] [address] [phone] Ollie Calvo MD [address] [address] End-stage liver disease (CMS/HCC) (Primary [...] Txp Follow-up Edil Kiran MD [address] [address] [facility] Patient is a 64 year old female with a past medical history of decompensated cirrhosis secondary toMASLD. Patient presents today for initial transplant consultation. Patient was initially diagnosed with cirrhosis around 3 years ago. She was hospitalized in [facility] for hepatorenal syndrome and was treated [...] as well. She then followed with her Engineer Internship with Holter monitor and Amio was [...] 8 week repeat Colonoscopy: performed 01/2021 at [facility] with polypectomy (TA). 1 year repeat [...] TO TEST BID, Disp: , Rfl: HYDROcodone-acetaminophen ([place]) 10-325 MG tablet, , Disp: , Rfl: [...] documented as of this encounter Care Teams Stab Setter And Driller Relationship Specialty Start Date End Date Monika Hernandez APRN [address] [facility] [place] [address] PCP - General 01/19/25 Sary Brannon APRN [address] [place] [address] Referring Physician Gastroenterology 01/07/25 documented as of this encounter
--- OUTSIDE RECORDS SUMMARY | 2025-04-01 07:31 | XMS_ITS | Encounter Summary ---
Author Organization Healthcare Address [address] [place] [address] Care Team Providers Care Babysitter Name Role Phone Larry Bedolla MD Primary Care Provider + [phone] Sary Brannon APRN Unavailable [phone] Monika Hernandez APRN Primary Care Provider [phone] Reason for Referral * Consultation (Routine) - Closed Specialty Diagnoses / Procedures Referred By Mayela may Referred To Contact Hepatology Diagnoses Bilious vomiting with nausea Anticentromere antibodies present Thrombopenia (CMS/HCC) Stage 3 hepatic fibrosis Raul Kincaid PA [address] [place] [address] Phone: tel: fax: Referral ID Status Reason Start Date Expiration Date V isits Requested Visits Authorized [id number] Closed Specialty Services Required 09/27/2021 03/29/2023 1 1 Encounter Details Date Type Department Care Team (Late st Contact Info) Description 09/27/2021 [facility] [address] [place] [address] Raul Kincaid PA [address] [place] [address] Bilious vomiting with nausea (Primary Dx); [...] fibrosis documented in this encounter Care Teams Babysitter Relationship Specialty Start Date End Date Larry Bedolla MD [address] [place] [address] PCP - General 12/08/20 01/18/25 Monika Hernandez APRN [address] [place] [address] PCP - General 01/19/25 Sary Brannon APRN 1210 [facility] [address] [place] [address] Referring Physician Gastroenterology 01/07/25 documented as of this encounter
--- OUTSIDE RECORDS SUMMARY | 2025-04-01 07:31 | XMS_ITS | Referral Summary ---
Author Organization [email or web address] ([place], [place], [place], [place]) Address [address] [place] [address] Care Team Providers Care Wire Fence Erector Name Role Phone Provider, Not In System [...] Do you speak a language other than Korean at [facility]? No 11/30/2024 Do you want [...] - 5.6 % 11/30/2024 9:17 AM EDT [facility] Comment: Hemoglobin A1C levels are related to mean glucose during the preceding 2-3 months. Less than 7% demonstrates glycemic control in diabetic patients. Hemoglobin AlC % Suggested Diagnosis > or = 6.5 Diabetic 5.7 - 6.4 Prediabetic <5.7 Non-diabetic eAVG Glucose 93.93 70 - 126 mg/dL 11/30/2024 9:17 AM EDT [facility] Blood Venipuncture / Unknown 11/30/2024 8:20 AM EDT 11/30/2024 9:07 AM EDT us Mikhail Hurtado MD LAB BLOOD ORDERABLES Final Resul t [facility] [address] [place] [address], [facility] [phone] from Last 3 Months or Most Recently Relevant to Health Maintenance Insurance [facility] ADV [facility] Advance Directives For more information, please contact: [phone] * Full Code (Latest Code Status on File) Date Activated Date Inactivated Comments 11/30/2024 2:06 AM 12/14/2024 6:30 PM Care Teams Wire Fence Erector Relationship Specialty Start Date End Date Provider, Not In System [place] PCP - General 12/14/24
--- OUTSIDE RECORDS SUMMARY | 2025-04-01 07:31 | XMS_ITS | Encounter Summary ---
Author Organization Healthcare Address [address] [place] [address] Care Team Providers Care Blocker Hand Name Role Phone Larry Bedolla MD Primary Care Provider + [phone] Sary Brannon APRN Unavailable [phone] Monika Hernandez APRN Primary Care Provider + [phone] Reason for Visit * Reason Comments Med Refill Encounter Details Date Type Department Care Team (Late st Contact Info) Description 10/20/2023 Refill [facility] [address] [place] [address] Luis Campo MD [address] [address] CKD (chronic kidney disease) stage 2, GFR 60-89 ml/min; Microalbuminuria; Coronary artery disease involving [place] heart with angina pectoris and documented spasm, unspecified vessel or lesion type (CMS/[facility]) Social History Tobacco Use Types Packs/Day Years [...] (mild) Microalbuminuria Proteinuria Coronary artery disease involving [place] heart with angina pectoris and documented spasm, unspecified vessel or lesion type (CMS/HCC) documented in this encounter Additional Health Concerns Assessment Noted Time A fall risk assessment has been complete d for the patient 01/02/2022 1:17 PM EDT A Body Mass Index follow-up plan has been documented for the patient 11/13/2022 11:41 AM EDT documented as of this encounter Care Teams Blocker Hand Relationship Specialty Start Date End Date Larry Bedolla MD [address] [place] [address] PCP - General 12/08/20 01/18/25 Monika Hernandez APRN [address] [place] [address] PCP - General 01/19/25 Sary Brannon APRN 1210 [facility] [address] [place] [address] Referring Physician Gastroenterology 01/07/25 documented as of this encounter
--- OUTSIDE RECORDS SUMMARY | 2025-04-01 07:31 | XMS_ITS | Clinical Summary ---
Author Organization [employer] ([place], [place], [place], [place]) Address [address] [place] [address] Care Team Providers Care Men'S Leather Dress Belt Maker Name Role Phone Provider, Not In System [...] your living situation today? I have a [facility] place to live 11/30/2024 Think about the [...] Do you speak a language other than Burkinan at [facility]? No 11/30/2024 Do [...] 05/13/2021, 04/15/2021, 11/08/2020 Medicare IPPE ([facility]) [id number] 07/28/2024 Influenza Vaccine (#1) 2025 [...] 5.6 % 11/30/2024 9:[address] [facility] Comment: Hemoglobin A1C levels are related to mean glucose during the preceding 2-3 months. Less than 7% demonstrates glycemic control in diabetic patients. Hemoglobin AlC % Suggested Diagnosis > or = 6.5 Diabetic 5.7 - 6.4 Prediabetic <5.7 Non-diabetic eAVG Glucose 93.93 70 - 126 mg/dL 11/30/2024 9:[address] [facility] Blood Venipuncture / Unknown 11/30/2024 8:20 AM EDT 11/30/2024 9:07 AM EDT Mikhail Hurtado MD LAB BLOOD ORDERABLES Final Resul t [facility] [address] [phone] from Last 3 Months or Most Recently Relevant to Health Maintenance Insurance [facility] ADV [facility] [place] [address] Advance Directives For more information, please contact: [phone] * Full Code (Latest Code Status on File) Date Activated Date Inactivated Comments 11/30/2024 2:06 AM 12/14/2024 6:30 PM Care Teams Men'S Leather Dress Belt Maker Relationship Specialty Start Date End Date Provider, Not In System [place] PCP - General 12/14/24
--- OUTSIDE RECORDS SUMMARY | 2025-04-01 07:31 | XMS_ITS | Encounter Summary ---
Author Organization Healthcare Address [address] [place] [id number] Care Team Providers Care Polishing Pad Mounter Name Role Phone Sary Brannon APRN Unavailable [phone] Monika Hernandez APRN Primary Care Provider [phone] Encounter Details Date Type Department Care Team [...] documented as of this encounter Care Teams Polishing Pad Mounter Relationship Specialty Start Date End Date Monika Hernandez APRN [address] [place] [address] PCP - General 01/19/25 Sary Brannon APRN [address] [place] [address] Referring Physician Gastroenterology 01/07/25 documented as of this encounter
--- OUTSIDE RECORDS SUMMARY | 2025-04-01 07:31 | XMS_ITS | Encounter Summary ---
Author Organization [facility] Address [address] [place] [address] Care Team Providers Care Director Of Clinical Applications Name Role Phone Sary Brannon REPAIRER HAIRSPRING Unavailable [phone] Monika Hernandez APRN Primary Care Provider + [phone] Reason for Visit * Reason Comments Appointment Confirmation and rem inders Encounter Details Date Type Department Care Team (Late st Contact Info) Description 02/17/[address] [facility] [address] [place] [address] Jessica Simms [place] [phone] Appointment (Confirmation and reminders) Social History Tobacco [...] documented as of this encounter Care Teams Director Of Clinical Applications Relationship Specialty Start Date End Date Monika Hernandez APRN [address] [place] [address] PCP - General 01/19/25 Sary Brannon APRN 1210 [facility] [address] [place] [address] Referring Physician Gastroenterology 01/07/25 documented as of this encounter
--- OUTSIDE RECORDS SUMMARY | 2025-04-01 07:31 | XMS_ITS | Clinical Summary ---
Author Organization [facility] [place] [address] Care Team Providers Care X Ray Physician Name Role Phone Unavailable Primary Care Provider [...] COVID-19 Vaccine ( - 2023-2 5 season) 2025 Influenza Vaccine (#1) 2025 Hepatitis B Vaccine Aged Out No longe r eligible based on patient's age to complete this topic Meningococcal B Vaccine Aged Out No l onger eligible based on patient's age to complete this topic
--- OUTSIDE RECORDS SUMMARY | 2025-04-01 07:31 | XMS_ITS | Encounter Summary ---
Author Organization Healthcare Address [address] [place] [address] Care Team Providers Care Mica Layer Name Role Phone Larry Bedolla MD Primary Care Provider + [phone] Sary Brannon CONDUIT REAMER OPERATOR Unavailable [phone] Monika Hernandez APRN Primary Care Provider [phone] Reason for Visit * Reason Comments Med Refill Encounter Details Date Type Department Care Team (Late st Contact Info) Description 04/12/2021 [facility] [address] [place] [address] Lina Lowe, CONDUIT REAMER OPERATOR [address] [facility] [address] [place] [address] Social History Tobacco Use Types [...] on filedocumented in this encounter Care Teams Mica Layer Relationship Specialty Start Date End Date Larry Bedolla MD [address] [place], [place] [address] PCP - General 12/08/20 01/18/25 Monika Hernandez APRN [address] [place] [address] PCP - General 01/19/25 Sary Brannon APRN 1210 [facility] [address] [place] [address] Referring Physician Gastroenterology 01/07/25 documented as of this encounter
--- OUTSIDE RECORDS SUMMARY | 2025-04-01 07:32 | XMS_ITS | Encounter Summary ---
Author Organization Healthcare Address [address] [place] [address] Care Team Providers Care Federal Mediation Commissioner Name Role Phone Larry Bedolla MD Primary Care Provider + [phone] Sary Brannon APRN Unavailable [phone] Monika Hernandez APRN Primary Care Provider + [phone] Encounter Details Date Type Department Care Team (Late st Contact Info) Description 04/30/2018 Orders Only External Location [address] [place] [address] Provider, External Social History Tobacco Use Types [...] on filedocumented in this encounter Care Teams Federal Mediation Commissioner Relationship Specialty Start Date End Date Larry Bedolla MD [address] [place] [address] PCP - General 12/08/20 01/18/25 Monika Hernandez APRN [address] [place] [address] PCP - General 01/19/25 Sary Brannon APRN 1210 [facility] [address] [place] [address] Referring Physician Gastroenterology 01/07/25 documented as of this encounter
--- OUTSIDE RECORDS SUMMARY | 2025-04-01 07:32 | XMS_ITS | Encounter Summary ---
Author Organization Healthcare Address [address] [place] [address] Care Team Providers Care Manager Education Name Role Phone Larry Bedolla MD Primary Care Provider + [phone] Sary Brannon APRN Unavailable [phone] Monika Hernandez APRN Primary Care Provider + [phone] Encounter Details Date Type Department Care Team (Late st Contact Info) Description 11/30/2024 Orders Only External Location [address] [place] [address] Provider, External Social History Tobacco Use Types [...] as of this encounter Care Teams Manager Education Relationship Specialty Start Date End Date Laryr Bedolla MD [address] [place] [address] PCP - General 12/08/20 01/18/25 Monika Hernandez APRN [address] [place] [address] PCP - General 01/19/25 Sary Brannon APRN 1210 [facility] [address] [place] [address] Referring Physician Gastroenterology 01/07/25 documented as of this encounter
--- OUTSIDE RECORDS SUMMARY | 2025-04-01 07:32 | XMS_ITS | Encounter Summary ---
Author Organization Healthcare Address [address] [place] [address] Care Team Providers Care Cushion Filler Name Role Phone Larry Bedolla MD Primary Care Provider + [phone] Sary Brannon APRN Unavailable [phone] Monika Hernandez APRN Primary Care Provider + [phone] Encounter Details Date Type Department Care Team (Late st Contact Info) Description 11/29/2024 Orders Only External Location [address] [place] [address] Provider, External Social History Tobacco Use Types [...] documented as of this encounter Care Teams Cushion Filler Relationship Specialty Start Date End Date Larry Bedolla MD [address] [place] [address] PCP - General 12/08/20 01/18/25 Monika Hernandez APRN [address] [place] [address] PCP - General 01/19/25 Sary Brannon APRN [address] [place] [address] [address] [place] [address] Referring Physician Gastroenterology 01/07/25 documented as of this encounter
--- OUTSIDE RECORDS SUMMARY | 2025-04-01 07:32 | XMS_ITS | Encounter Summary ---
Author Organization Healthcare Address [address] [place] [address] Care Team Providers Care Epic Radiant Analyst Name Role Phone Larry Bedolla MD Primary Care Provider + [phone] Sary Brannon APRN Unavailable [phone] Monika Hernandez APRN Primary Care Provider + [phone] Encounter Details Date Type Department Care Team (Late st Contact Info) Description 11/30/2024 Orders Only External Location [address] [place] [address] Provider, External Social History Tobacco Use Types [...] EDT) Anatomical Region Laterality Modality Ultrasound 11/30/2024 3:3 8 PM EDT us External Provider IMG US [...] documented as of this encounter Care Teams Epic Radiant Analyst Relationship Specialty Start Date End Date Larry Bedolla MD [address] [place] [address] PCP - General 12/08/20 01/18/25 Monika Hernandez APRN [address] [place] [address] PCP - General 01/19/25 Sary Brannon APRN 1210 [facility] [address] [place] [address] Referring Physician Gastroenterology 01/07/25 documented as of this encounter
--- OUTSIDE RECORDS SUMMARY | 2025-04-01 07:32 | XMS_ITS | Encounter Summary ---
Author Organization Healthcare Address [address] [place] [address] Care Team Providers Care Outside Industrial Sales Representative Name Role Phone Larry Bedolla MD Primary Care Provider + [phone] Sary Brannon APRN Unavailable [phone] Monika Hernandez APRN Primary Care Provider + [phone] Encounter Details Date Type Department Care Team (Late st Contact Info) Description 12/04/2024 Orders Only External Location [address] [place] [address] Provider, External Social History Tobacco Use Types [...] documented as of this encounter Care Teams Outside Industrial Sales Representative Relationship Specialty Start Date End Date Larry Bedolla MD [address] [place] [address] PCP - General 12/08/20 01/18/25 Monika Hernandez APRN [address] [place] [address] PCP - General 01/19/25 Sary Brannon APRN 1210 [facility] [address] [place] [address] Referring Physician Gastroenterology 01/07/25 documented as of this encounter
--- OUTSIDE RECORDS SUMMARY | 2025-04-01 07:32 | XMS_ITS | Clinical Summary ---
[facility] Organization [facility] Address [address] [place] [address] Care Team Providers Care Technical Sourcing Recruiter Name Role Phone Sherri Adkins APRN Primary [...] of 2) 2012 COVID-19 Vaccine (1 - season) 2025 INFLUENZA VACCINE 04/27/2025 [place] [address] Care Teams Technical Sourcing Recruiter Relationship Specialty Start Date End Date Sherri Adkins APRN [address] [place] [address] PCP - General Family Medicine 03/12/16
--- OUTSIDE RECORDS SUMMARY | 2025-04-01 07:32 | XMS_ITS | Encounter Summary ---
Author Organization Healthcare Address [address] [place] [address] Care Team Providers Care Complaint Operator Name Role Phone Larry Bedolla MD Primary Care Provider + [phone] Sary Brannon APRN Unavailable [phone] Monika Hernandez APRN Primary Care Provider + [phone] Encounter Details Date Type Department Care Team (Late st Contact Info) Description 12/03/2024 Orders Only External Location [address] [place] [address] Provider, External Social History Tobacco Use Types [...] documented as of this encounter Care Teams Complaint Operator Relationship Specialty Start Date End Date Larry Bedolla MD [address] [place] [address] PCP - General 12/08/20 01/18/25 Monika Hernandez APRN [address] [place] [address] PCP - General 01/19/25 Sary Brannon APRN 1210 [facility] [address] [place] [address] Referring Physician Gastroenterology 01/07/25 documented as of this encounter
--- OUTSIDE RECORDS SUMMARY | 2025-04-01 07:32 | XMS_ITS | Encounter Summary ---
Author Organization Healthcare Address [address] [place] [address] Care Team Providers Care Customs Import Specialist Name Role Phone Larry Bedolla MD Primary Care Provider + [phone] Sary Brannon APRN Unavailable [phone] Monika Hernandez APRN Primary Care Provider + [phone] Encounter Details Date Type Department Care Team (Late st Contact Info) Description 10/26/2024 Orders Only External Location [address] [place] [address] Provider, External Social History Tobacco Use Types [...] documented as of this encounter Care Teams Customs Import Specialist Relationship Specialty Start Date End Date Larry Bedolla MD [address] [place] [address] PCP - General 12/08/20 01/18/25 Monika Hernandez APRN [address] [place] [address] PCP - General 01/19/25 Sary Brannon APRN 1210 [facility] [address] [place] [address] Referring Physician Gastroenterology 01/07/25 documented as of this encounter
--- OUTSIDE RECORDS SUMMARY | 2025-04-01 07:32 | XMS_ITS | Encounter Summary ---
Author Organization Healthcare Address [address] [place] [address] Care Team Providers Care Maxillofacial Pathology Name Role Phone Larry Bedolla MD Primary Care Provider + [phone] Sary Brannon APRN Unavailable [phone] Monika Hernandez APRN Primary Care Provider + [phone] Encounter Details Date Type Department Care Team (Late st Contact Info) Description 12/10/2024 Orders Only External Location [address] [place] [address] Provider, External Social History Tobacco Use Types [...] documented as of this encounter Care Teams Maxillofacial Pathology Relationship Specialty Start Date End Date Larry Bedolla MD [address] [place] [address] PCP - General 12/08/20 01/18/25 Monika Hernandez APRN [address] [place] [address] PCP - General 01/19/25 Sary Brannon APRN 1210 [facility] [address] [place] [address] Referring Physician Gastroenterology 01/07/25 documented as of this encounter
--- OUTSIDE RECORDS SUMMARY | 2025-04-01 07:32 | XMS_ITS | Encounter Summary ---
Author Organization Healthcare Address [address] [place] [address] Care Team Providers Care Seamless Tube Drawer Name Role Phone Larry Bedolla MD Primary Care Provider + [phone] Sary Brannon APRN Unavailable [phone] Monika Hernandez APRN Primary Care Provider + [phone] Encounter Details Date Type Department Care Team (Late st Contact Info) Description 12/02/2024 Orders Only External Location [address] [place] [address] Provider, External Social History Tobacco Use Types [...] documented as of this encounter Care Teams Seamless Tube Drawer Relationship Specialty Start Date End Date Larry Bedolla MD [address] [place] [address] PCP - General 12/08/20 01/18/25 Monika Hernandez APRN [address] [place] [address] PCP - General 01/19/25 Sary Brannon APRN [address] [place] [address] [address] [place] [address] Referring Physician Gastroenterology 01/07/25 documented as of this encounter
--- OUTSIDE RECORDS SUMMARY | 2025-04-01 07:32 | XMS_ITS | Encounter Summary ---
Author Organization Healthcare Address [address] [place] [address] Care Team Providers Care Road Roller Operator Name Role Phone Larry Bedolla MD Primary Care Provider + [phone] Sary Brannon APRN Unavailable [phone] Monika Hernandez APRN Primary Care Provider + [phone] Encounter Details Date Type Department Care Team (Late st Contact Info) Description 12/07/2024 Orders Only External Location [address] [place] [address] Provider, External Social History Tobacco Use Types [...] documented as of this encounter Care Teams Road Roller Operator Relationship Specialty Start Date End Date Larry Bedolla MD [address] [place] [address] PCP - General 12/08/20 01/18/25 Monika Hernandez APRN [address] [place] [address] PCP - General 01/19/25 Sary Brannon APRN 1210 [facility] [address] [place] [address] Referring Physician Gastroenterology 01/07/25 documented as of this encounter
--- OUTSIDE RECORDS SUMMARY | 2025-04-01 07:32 | XMS_ITS | Encounter Summary ---
Author Organization Healthcare Address [address] [place] [address] Care Team Providers Care Plant Taxonomist Name Role Phone Larry Bedolla MD Primary Care Provider + [phone] Sary Brannon APRN Unavailable [phone] Monika Hernandez APRN Primary Care Provider + [phone] Encounter Details Date Type Department Care Team (Late st Contact Info) Description 12/09/2024 Orders Only External Location [address] [place] [address] Provider, External Social History Tobacco Use Types [...] documented as of this encounter Care Teams Plant Taxonomist Relationship Specialty Start Date End Date Larry Bedolla MD [address] [place] [address] PCP - General 12/08/20 01/18/25 Monika Hernandez APRN [address] [place] [address] PCP - General 01/19/25 Sary Brannon APRN 1210 [facility] [address] [place] [address] Referring Physician Gastroenterology 01/07/25 documented as of this encounter
--- OUTSIDE RECORDS SUMMARY | 2025-04-01 07:32 | XMS_ITS | Encounter Summary ---
Author Organization Healthcare Address [address] [place] [address] Care Team Providers Care Superior Court Justice Name Role Phone Larry Bedolla MD Primary Care Provider + [phone] Sary Brannon APRN Unavailable [phone] Monika Hernandez APRN Primary Care Provider + [phone] Encounter Details Date Type Department Care Team (Late st Contact Info) Description 12/06/2024 Orders Only External Location [address] [place] [address] Provider, External Social History Tobacco Use Types [...] documented as of this encounter Care Teams Superior Court Justice Relationship Specialty Start Date End Date Larry Bedolla MD [address] [place] [address] PCP - General 12/08/20 01/18/25 Monika Hernandez APRN [address] [place] [address] PCP - General 01/19/25 Sary Brannon APRN 1210 [facility] [address] [place] [address] Referring Physician Gastroenterology 01/07/25 documented as of this encounter
--- OUTSIDE RECORDS SUMMARY | 2025-04-01 07:32 | XMS_ITS | Encounter Summary ---
Author Organization Healthcare Address [address] [place] [address] Care Team Providers Care Maintenance Controller Name Role Phone Larry Bedolla MD Primary Care Provider + [phone] Sary Brannon APRN Unavailable [phone] Monika Hernandez APRN Primary Care Provider [phone] Encounter Details Date Type Department Care Team (Late st Contact Info) Description 01/21/2022 Community [facility] Practice [address] [place] [address] Larry Bedolla MD [address] [place], [place] [id number] Central stenosis of spinal canal (Primary Dx) [...] as of this encounter Care Teams Maintenance Controller Relationship Specialty Start Date End Date Larry Bedolla MD [address] [place] [address] PCP - General 12/08/20 01/18/25 Monika Hernandez APRN [address] [place], [place] [id number] PCP - General 01/19/25 Sary Brannon APRN 1210 [facility] [address] [place] [address] Referring Physician Gastroenterology 01/07/25 documented as of this encounter
--- OUTSIDE RECORDS SUMMARY | 2025-04-01 07:32 | XMS_ITS | Encounter Summary ---
Author Organization Healthcare Address [address] [place] [address] Care Team Providers Care Oven Loader Name Role Phone Larry Bedolla MD Primary Care Provider + [phone] Sary Brannon GOVERNMENT EMPLOYEE Unavailable [phone] Monika Hernandez APRN Primary Care Provider [phone] Encounter Details Date Type Department Care Team (Late st Contact Info) Description 01/03/2025 Community [facility] Community Practice [address] [place] [address] Sary Brannon, GOVERNMENT EMPLOYEE [address] [place], [place] [id number] Social History Tobacco Use Types Packs/Day Years [...] documented as of this encounter Care Teams Oven Loader Relationship Specialty Start Date End Date Larry Bedolla MD [address] [place] [address] PCP - General 12/08/20 01/18/25 Monika Hernandez APRN [address] [place] [address] PCP - General 01/19/25 Sary Brannon APRN [address] [place] [address] Referring Physician Gastroenterology 01/07/25 documented as of this encounter
--- OUTSIDE RECORDS SUMMARY | 2025-04-01 07:32 | XMS_ITS | Encounter Summary ---
Author Organization Healthcare Address [address] [place] [address] Care Team Providers Care Meat Press Operator Name Role Phone Larry Bedolla MD Primary Care Provider + [phone] Sary Brannon APRN Unavailable [phone] Monika Hernandez APRN Primary Care Provider + [phone] Encounter Details Date Type Department Care Team (Late st Contact Info) Description 12/10/2024 Orders Only External Location [address] [place] [address] Provider, External Social History Tobacco Use Types [...] as of this encounter Care Teams Meat Press Operator Relationship Specialty Start Date End Date Larry Bedolla MD [address] [place] [address] PCP - General 12/08/20 01/18/25 Monika Hernandez APRN [address] [place] [address] PCP - General 01/19/25 Sary Brannon APRN 1210 [facility] [address] [place] [address] Referring Physician Gastroenterology 01/07/25 documented as of this encounter
--- OUTSIDE RECORDS SUMMARY | 2025-04-01 07:32 | XMS_ITS ---
Author Organization [facility] Address [address] [place] [address] Care Team Providers Care Occupational Health Manager Name Role Phone Sary Brannon APRN Unavailable [phone] Monika Hernandez APRN Primary Care Provider [phone] Transplant Episode Liver Candidate [facility] ([place], [place]) - JOSÉ LUIS Referred on 01/07/2025 Marked as Active on 01/07/2025 Liver CoordinatorMoraima Centeno RN Fax: N/A Email: N/A Scores Score Value Updated Expires Exceptions/Saloni sons CPRA Not available MELD (Calc) 22 02/22/2025 Care Team Name Role Phone Fax Email Moraima Centeno RN Liver Coordinator [phone] N/A N/A Sary Brannon APRN Referring Physician [phone] N/A [facility] [phone] N/A N/A Edil Kiran MD Surgeon [phone] N/A Events Pre-Transplant Referred: 01/07/2025 Committee: 02/28/2025 Appointments (03/01/2025 - 05/01/2025) When With Visit Type Description 03/22/2025 Transplant LAB No Show
--- OUTSIDE RECORDS SUMMARY | 2025-04-01 07:32 | XMS_ITS | Encounter Summary ---
Author Organization Healthcare Address [address] [place] [address] Care Team Providers Care Ve Teacher Name Role Phone Larry Bedolla MD Primary Care Provider + [phone] Sary Brannon APRN Unavailable [phone] Monika Hernandez APRN Primary Care Provider + [phone] Encounter Details Date Type Department Care Team (Late st Contact Info) Description 11/30/2024 Orders Only External Location [address] [place] [address] Provider, External Social History Tobacco Use Types [...] documented as of this encounter Care Teams Ve Teacher Relationship Specialty Start Date End Date Larry Bedolla MD [address] [place] [address] PCP - General 12/08/20 01/18/25 Monika Hernandez APRN [address] [place] [address] PCP - General 01/19/25 Sary Brannon APRN 1210 [facility] [address] [place] [address] Referring Physician Gastroenterology 01/07/25 documented as of this encounter
--- OUTSIDE RECORDS SUMMARY | 2025-04-01 07:32 | XMS_ITS | Encounter Summary ---
Author Organization Healthcare Address [address] [place] [address] Care Team Providers Care Raw Mill Operator Name Role Phone Larry Bedolla MD Primary Care Provider + [phone] Sary Brannon APRN Unavailable [phone] Monika Hernandez APRN Primary Care Provider + [phone] Encounter Details Date Type Department Care Team (Late st Contact Info) Description 11/30/2024 Orders Only External Location [address] [place] [address] Provider, External Social History Tobacco Use Types [...] documented as of this encounter Care Teams Raw Mill Operator Relationship Specialty Start Date End Date Larry Bedolla MD [address] [place] [address] PCP - General 12/08/20 01/18/25 Monika Hernandez APRN [address] [place] [address] PCP - General 01/19/25 Sary Brannon APRN 1210 [facility] [address] [place] [address] Referring Physician Gastroenterology 01/07/25 documented as of this encounter
--- OUTSIDE RECORDS SUMMARY | 2025-04-01 07:32 | XMS_ITS | Clinical Summary ---
Author Organization Healthcare Address [address] [place] [address] Care Team Providers Care Real Estate Lawyer Name Role Phone Sary Brannon ARMORED CABLE MACHINE OPERATOR Unavailable [phone] Monika Hernandez APRN Primary Care Provider [phone] Allergies No known active allergies Medications bisoprolol [...] 3 INJECTIONS DAILY 11/11/19 Active HYDROcodone-acetam inophen (Oxford) 10-325 MG tablet 10/24/19 Active spironolactone (Aldactone) 25 MG tablet Take 0.5 tablets by mouth daily. 10/03/19 Active furosemide (Lasix) 40 MG tablet Take by mouth 2 (two) times a day. 10/03/19 Active Insulin Lispro (HUMALOG IJ) Inject as directed. 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); Portal hypertension (CMS/HCC); Other ascites; GERMÁN (acute kidney injury) (CMS/HCC) 02/22/2025 Travel 02/17/2025 Telephone [facility] [address] [address] Jessica Simms Appointment (Confirmation and reminders) 01/19/2025 Telephone [facility] [address] [address] Jessica Simms Appointment (scheduling) 01/07/2025 Telephone [facility] [address] [address] Kasey Dye Referral - Liver Txp 01/03/2025 Community Orders Community Practice [address] [place] [address] Sary Brannon APRN 12/31/2024 Orders Only External Location [address] [place] [address] Monika Hernandez APRN from Last 3 Months [...] 06/04/2022 01/02/2022, 11/21/2021 [facility]-Depression Screening 01/02/2023 01/02/2022 [id number] Vaccine ( season) 2024 05/13/2021, 04/15/2021, 11/08/2020 [...] >= 12 mIU/mL 02/22/2025 8:44 AM EDT [facility] Comment: Nonreactive. Individual is considered not immune to HBV infection. Blood Venous blood specimen / Unknown Venipuncture / Unknown 02/22/2025 7:18 AM EDT 02/22/2025 7:48 AM EDT us Edil Kiran MD LAB BLOOD ORDERABLES Final Resul t [facility] [address] [place] [address] * Alpha fetoprotein, serum (02/22/2025 7:18 AM EDT) Alpha Fetoprotein, Serum <2.3 <10.0 ng/mL 02/22/2025 8:25 AM EDT [facility] Blood Venous blood specimen / Unknown Venipuncture / Unknown 02/22/2025 7:18 AM EDT 02/22/2025 7:48 AM EDT Narrative [facility] - 02/22/2025 8:25 AM EDT Performed by Stone electrochemiluminescent immunoassay which is traceable to the 1st AFP IRP WHO Reference standard 72/255. Results obtained with different test methods or kits cannot be used interchangeably. us Edil Kiran MD LAB BLOOD ORDERABLES Final Resul t Performing Organization Address City/[facility]/[place] [address] * (ABNORMAL) Hepatitis A Antibody IgG (02/22/2025 7:18 AM EDT) Pathologist [facility] Hepatitis A Antibody IgG Positive(A ) Negative 02/22/2025 8:44 AM EDT [facility] Blood Venous blood specimen / Unknown Venipuncture / Unknown 02/22/2025 7:18 AM EDT 02/22/2025 7:48 AM EDT us Edil Kiran MD LAB BLOOD ORDERABLES Final Resul t Performing Organization Address City/[facility] Co de Phone Number [facility] [address] [place] [address] * Hepatitis C Antibody (02/22/2025 7:18 AM EDT) Hepatitis C Antibody Negative Negative 02/22/2025 8:29 AM EDT [facility] Blood Venous blood specimen / Unknown Venipuncture / Unknown 02/22/2025 7:18 AM EDT 02/22/2025 7:48 AM EDT us Edil Kiran MD LAB BLOOD ORDERABLES Final Resul t Performing Organization Address City/[facility] Co de Phone Number [facility] [address] [place] [address] * Nicotine Cotinine Metabolite (02/22/2025 7:18 AM EDT) NICOTINE <5 <5 ng/mL 02/24/2025 2:3 4 PM EDT [facility] Cotinine <5 <5 ng/mL 02/24/2025 2:3 4 PM EDT [facility] Blood Venous blood specimen / Unknown Venipuncture / Unknown 02/22/2025 7:18 AM EDT 02/22/2025 7:46 AM EDT Narrative [facility] - 02/24/2025 2:34 PM EDT Testing performed by LC-MS/MS at the [facility] Special Chemistry/Toxicology Laboratory. This test was developed and its performance characteristics determined by [facility]. This assay has not been cleared by the FDA. The laboratory is regulated under CLIA as qualified to perform high-complexity testing. This test is used for clinical purposes. Edil Kiran MD LAB BLOOD ORDERABLES Final Resul t [facility] [address] [place] [address] * ABO/Rh (02/22/2025 7:18 AM EDT) ABO/Rh O Positive 02/22/2025 7:14 AM EDT BLOOD BANK Blood Venous blood specimen / Unknown Venipuncture / Unknown 02/22/2025 7:18 AM EDT 02/22/2025 7:46 AM EDT Edil Kiran MD LAB BLOOD BANK TEST ORDERABLES F inal Result BLOOD BANK [address] [place] [address] * Hepatitis B Surface Antigen (02/22/2025 7:18 AM EDT) Hepatitis B Surf Antigen Negative Negative 02/22/2025 8:44 AM EDT [facility] Blood Venous blood specimen / Unknown Venipuncture / Unknown 02/22/2025 7:18 AM EDT 02/22/2025 7:48 AM EDT Edil Kiran MD LAB BLOOD ORDERABLES Final Resul t Performing Organization Address [facility] de Phone Number [facility] [address] [place] [address] * (ABNORMAL) Protime-INR (02/22/2025 7:18 AM EDT) Prothrombin Time 18.7(H) 12.0 - 14.3 sec LAB COAGULATION METHOD 02/22/2025 8:04 AM EDT [facility] INR 1.6(H) 0.9 - 1.1 LAB COAGULATION METHOD 02/22/2025 8:04 AM EDT [facility] Blood Venous blood specimen / Unknown Venipuncture / Unknown 02/22/2025 7:18 AM EDT 02/22/2025 7:46 AM EDT Narrative [facility] - 02/22/2025 8:04 AM [...] ORDERABLES Final Resul t Performing Organization Address [facility] Co de Phone Number [facility] [address] [place] [address] * (ABNORMAL) Hemogram (CBC) (02/22/2025 7:18 AM EDT) WBC Count 2.35(L) 3.70 - 10.30 10*3/uL LAB HEMATOLOGY METHOD 02/22/2025 9:33 AM EDT [facility] RBC Count 3.33(L) 3.90 - 5.20 10*6/uL LAB HEMATOLOGY METHOD 02/22/2025 9:33 AM EDT [facility] HGB 10.2(L) 11.2 - 15.7 g/dL LAB HEMATOLOGY METHOD 02/22/2025 9:33 AM EDT [facility] HCT 31.8(L) 34.0 - 45.0 % LAB HEMATOLOGY METHOD 02/22/2025 9:33 AM EDT [facility] Platelet Count 75(L) 155 - 369 10*3/uL LAB HEMATOLOGY METHOD 02/22/2025 9:33 AM EDT [facility] MCV 96 79 - 98 fL LAB HEMATOLOGY METHOD 02/22/2025 9:33 AM EDT [facility] MCH 30.6 26.0 - 32.0 pg LAB HEMATOLOGY METHOD 02/22/2025 9:33 AM EDT [facility] MCHC 32.1 30.7 - 35.5 g/dL LAB HEMATOLOGY METHOD 02/22/2025 9:33 AM EDT [facility] RDW 15.7(H) 11.5 - 14.5 % LAB HEMATOLOGY METHOD 02/22/2025 9:33 AM EDT [facility] MPV 10.5 8.8 - 12.5 fL LAB HEMATOLOGY METHOD 02/22/2025 9:33 AM EDT [facility] nRBC 0.0 <=0.0 per 100 WBCs LAB HEMATOLOGY METHOD 02/22/2025 9:33 AM EDT [facility] Blood Venous blood specimen / Unknown Venipuncture / Unknown 02/22/2025 7:18 AM EDT 02/22/2025 7:41 AM EDT us Edil Kiran MD LAB BLOOD ORDERABLES Final Resul t [facility] [address] [place] [address] * (ABNORMAL) Comprehensive metabolic panel (02/22/2025 7:18 AM EDT) Glucose, Plasma 283(H) 74 - 99 mg/dL 02/22/2025 8:16 AM EDT [facility] BUN, Plasma 30(H) 8 - 23 mg/dL 02/22/2025 8:16 AM EDT [facility] Creatinine, Plasma 2.54(H) 0.60 - 1.10 mg/dL 02/22/2025 8:16 AM EDT [facility] BUN/Creatinine Ratio 12 02/22/2025 8:16 AM EDT [facility] Sodium, Plasma 137 136 - 145 mmol/L 02/22/2025 8:16 AM EDT [facility] Potassium, Plasma 4.3 3.6 - 4.9 mmol/L 02/22/2025 8:16 AM EDT [facility] Chloride, Plasma 105 97 - 107 mmol/L 02/22/2025 8:16 AM EDT [facility] CO2, Plasma 24 22 - 29 mmol/L 02/22/2025 8:16 AM EDT [facility] Anion Gap 8 6 - 16 mmol/L 02/22/2025 8:16 AM EDT [facility] Total Calcium, Plasma 8.6(L) 8.9 - 10.2 mg/dL 02/22/2025 8:16 AM EDT [facility] Total Protein 7.2 6.3 - 7.9 g/dL 02/22/2025 8:16 AM EDT [facility] Albumin, Plasma 2.9(L) 3.5 - 5.2 g/dL 02/22/2025 8:16 AM EDT [facility] AST, Plasma 37(H) 10 - 35 U/L 02/22/2025 8:16 AM EDT [facility] ALT, Plasma 15 10 - 35 U/L 02/22/2025 8:16 AM EDT [facility] Alkaline Phosphatase, Plasma 121 46 - 142 U/L 02/22/2025 8:16 AM EDT [facility] Total Bilirubin, Plasma 0.9 0.2 - 1.1 mg/dL 02/22/2025 8:16 AM EDT [facility] eGFRcr 20.9 mL/min/1.7 3m*2 02/22/2025 8:16 AM EDT [facility] Comment:Reported eGFRcr in m L/min/1.73m2 is based the CKD-EPI 2020 equation that does not use a race coefficient. Blood Venous blood specimen / Unknown Venipuncture / Unknown 02/22/2025 7:18 AM EDT 02/22/2025 7:47 AM EDT Edil Kiran MD LAB BLOOD ORDERABLES Final Resul t [facility] [address] [place] [address] * Creatinine, Plasma (01/03/2025) External Creatinine Blood 3.00 mg/dL Blood Venous blood specimen / Unknown 01/03/2025 Historical Provider LAB BLOOD ORDERABLES Final R esult * Sodium, Plasma (01/03/2025) External Sodium 144 mmol/L Blood Venous blood specimen / Unknown 01/03/2025 Historical Provider LAB BLOOD ORDERABLES Final R esult * Albumin, Plasma (01/03/2025) External Albumin 3.6 g/dL Blood Venous blood specimen / Unknown 01/03/2025 Result [facility] Provider LAB BLOOD ORDERABLES Final R esult * US OUTSIDE IMAGES (12/31/2024 7:33 AM EDT) Anatomical Region Laterality Modality Ultrasound 12/31/2024 7:33 AM EDT Result [facility] Monika Hernandez APRN IMG US PROCEDURES [...] EDT 01/24/2016 6:17 PM EDT Sherri Adkins ARMORED CABLE MACHINE OPERATOR LAB BLOOD ORDERABLES Final Result SUNQUEST from Last 3 Months or Most Recently Relevant to Health Maintenance Insurance [employer] MEDICAID [employer] MEDICARE [employer]ICAID Care Teams Real Estate Lawyer Relationship Specialty Start Date End Date Monika Hernandez APRN [address] [facility] [place] [address] PCP - General 01/19/25 Sary Brannon APRN 1210 [facility] [address] [place] [address] Referring Physician Gastroenterology 01/07/25
--- OUTSIDE RECORDS SUMMARY | 2025-04-01 07:32 | XMS_ITS | Encounter Summary ---
Author Organization Healthcare Address [address] [place] [address] Care Team Providers Care Kaiwhakahaere Name Role Phone Larry Bedolla MD Primary Care Provider + [phone] Sary Brannon APRN Unavailable [phone] Monika Hernandez APRN Primary Care Provider + [phone] Encounter Details Date Type Department Care Team (Late st Contact Info) Description 04/02/2017 Orders Only External Location [address] [place] [address] Provider, External Social History Tobacco Use Types [...] on filedocumented in this encounter Care Teams Kaiwhakahaere Relationship Specialty Start Date End Date Larry Bedolla MD [address] [place] [address] PCP - General 12/08/20 01/18/25 Monika Hernandez APRN [address] [place] [address] PCP - General 01/19/25 Sary Brannon APRN 1210 [facility] [address] [place] [address] Referring Physician Gastroenterology 01/07/25 documented as of this encounter
--- OUTSIDE RECORDS SUMMARY | 2025-04-01 07:32 | XMS_ITS | Encounter Summary ---
Author Organization Healthcare Address [address] [place] [address] Care Team Providers Care Foreclosure Home Inspector Name Role Phone Larry Bedolla MD Primary Care Provider + [phone] Sary Brannon APRN Unavailable [phone] Monika Hernandez APRN Primary Care Provider [phone] Encounter Details Date Type Department Care Team (Late st Contact Info) Description 12/31/2024 Orders Only External Location [address] [place] [address] Monika Hernandez APRN [address] [place], [place] [id number] Social History Tobacco Use Types Packs/Day Years [...] 12/31/2024 7:33 AM EDT Monika Hernandez APRN [facility] [place] Final Result documented in this encounter Visit Diagnoses Not on filedocumented in this encounter Additional Health Concerns Assessment Noted Time A fall risk assessment has been complete d for the patient 01/02/2022 1:17 PM EDT A Body Mass Index follow-up plan has been documented for the patient 11/13/2022 11:41 AM EDT documented as of this encounter Care Teams Foreclosure Home Inspector Relationship Specialty Start Date End Date Larry Bedolla MD [address] [place] [address] PCP - General 12/08/20 01/18/25 Monika Hernandez APRN [address] [place] [address] PCP - General 01/19/25 Sary Brannon APRN 1210 [facility] [address] [place] [address] Referring Physician Gastroenterology 01/07/25 documented as of this encounter
--- NOTE | 2025-04-01 08:06 | US_ITS ---
FINAL REPORT CLINICAL HISTORY: ASCITES -- PARACENTESIS -- PILAR VALDIVIA -- 6350ML FINDINGS: ULTRASOUND-GUIDED PARACENTESIS HISTORY: Ascites. ATTENDING PHYSICIAN: Dr. Myles PHYSICIAN HARDWARE DEVELOPER: Haven Henderson PA-C TECHNIQUE: Informed consent was obtained from the patient. A timeout procedure was performed prior to beginning. Appropriate pocket was localized for drainage. The patient was prepped and draped in routine fashion over the LLQ. Local anesthesia was achieved with 1% lidocaine. Using imaging guidance with images acquired, an 18-gauge sheath needle was directed into the peritoneal fluid. Approximately 6.3 liters of yellow serous fluid was aspirated. Patient tolerated the procedure well and left the department in good condition. No fluid was sent for laboratory analysis. IMPRESSION: Successful ultrasound guided therapeutic paracentesis with 6.3 liters of fluid removed. Reviewed, Interpreted and Dictated by Lizzie Myles MD Transcribed by Haven Henderson PA-C Authenticated and [facility]
[2025-04-01 10:05] LABS: Creatinine,Serum 2.30 mg/dl (0.52-1.04); Estimated Glomerular Filt Rate 21 ml/min (>60); GFR (African American) 26 ML/MIN (>60)
[2025-04-01 10:40] VITALS: BP 143/42; PULSE 80; RESP 18; TEMP 36.7; O2SAT 100
[2025-04-01] MEDS: ALBUMIN HUMAN 12.5 GM/50 ML BAG IV ×4 (10:40→12:05)
[2025-04-01 11:10] VITALS: BP 132/52; PULSE 79; RESP 18
[2025-04-01 11:38] VITALS: BP 130/48; PULSE 74
[2025-04-01 12:05] VITALS: BP 129/54; PULSE 76
[2025-04-01 12:40] VITALS: BP 131/54; PULSE 71; O2SAT 99
[2025-04-01] MEDS: SODIUM CHLORIDE 0.9% 10ML FLUSH SYRINGE 10 ML IV (12:40)
== END 2025-04-01 12:40 | disposition home or self-care (01) ==
LOC: RAD 07:29 → INF 09:18
PROVIDERS: PCP Family Medicine; Visit Provider Nurse Practitioner Family
DX: R18.8 Other ascites (principal)
CPT/HCPCS: 49083; 82565; 96365; 96366; P9047

== ENCOUNTER 2025-04-15 07:31 | Outpatient (CLI) | payer MEDICARE, MEDICAID, SELFPAY ==
--- OUTSIDE RECORDS SUMMARY | 2025-02-22 09:20 | XMS_ITS | Encounter Summary ---
Author Organization Healthcare Address [address] [place] [address] Care Team Providers Care Radar Engineering Teacher Name Role Phone Sary Brannon GLOBAL DIRECTOR AIR AND CLIMATE CHANGE Unavailable [phone] Monika Hernandez APRN Primary Care Provider [phone] Reason for Referral * Consultation (Routine) - Authorized Specialty Diagnoses / Procedures Referred By Contac t Referred To Contact Physical Therapy Diagnoses End-stage liver disease (CMS/HCC) Ollie Calvo MD [address] [address] Phone: tel: fax: Referral ID Status Reason Start Date Expiration Date Visits Requested Visits Authorized [id number] Authorized Consult and Treat 02/22/2025 08/24/2026 1 1 * Imaging (Routine) - Authorized Specialty Diagnoses / Procedures Referred By Contac t Referred To Contact Diagnoses End-stage liver disease (CMS/HCC) Procedures US Abdomen Ollie Calvo MD [address] [address] Phone: tel: fax: Referral ID Status Reason Start Date Expiration Date V isits Requested Visits Authorized [id number] Authorized 02/22/2025 08/24/2026 1 1 * Imaging (Routine) - Pending Review Specialty Diagnoses / Procedures Referred By Contmazin t Referred To Contact Gastroenterology Diagnoses End-stage liver disease (CMS/HCC) Procedures EGD Ollie Calvo MD [address] [address] Phone: tel: fax: Referral ID Status Reason Start Date Expiration Date Visits Requested Visits Authorized [id number] Pending Review Specialty Services Required 02/22/2025 08/24/2026 1 1 Reason for Visit * Reason Comments Pre-Liver Txp Follow-up * Consultation (Routine) - Closed Specialty Diagnoses / Procedures Referred By Mayela t Referred To Contact Transplant Diagnoses End-stage liver disease (CMS/HCC) Edil Kiran MD [address] [facility] [address] [place] [address] Phone: tel: fax: [facility] [place] [address] [address] Phone: tel: fax: Referral ID Status Reason Start Date Expiration Date V isits Requested Visits Authorized [id number] Closed Specialty Services Required 01/19/2025 07/21/2026 1 1 Encounter Details Date Type Department Care Team (Late st Contact Info) Description 02/22/2025 9:20 AM EDT Office Visit [facility] Transplant Center [facility] [address] [phone] Ollie Calvo MD [address] [address] End-stage liver disease (CMS/HCC) (Primary [...] Txp Follow-up Edil Kiran MD [address] [address] [facility] Patient is a 64 year old female with a past medical history of decompensated cirrhosis secondary toMASLD. Patient presents today for initial transplant consultation. Patient was initially diagnosed with cirrhosis around 3 years ago. She was hospitalized in [facility] for hepatorenal syndrome and was treated with [...] as well. She then followed with her Produce Runner with Holter monitor and Amio was discontinued [...] 8 week repeat Colonoscopy: performed 01/2021 at [facility] with polypectomy (TA). 1 year repeat [...] TO TEST BID, Disp: , Rfl: HYDROcodone-acetaminophen ([place]) 10-325 MG tablet, , Disp: , Rfl: [...] documented as of this encounter Care Teams Radar Engineering Teacher Relationship Specialty Start Date End Date Monika Hernandez APRN [address] [facility] [place] [address] PCP - General 01/19/25 Sary Brannon APRN [address] [place] [address] Referring Physician Gastroenterology 01/07/25 documented as of this encounter
[2025-04-15] VITALS (7 sets, daily range): BP systolic 137–158; BP diastolic 62–78; PULSE 85–99; RESP 16–17; O2SAT 100
--- NOTE | 2025-04-15 07:33 | US_ITS ---
FINAL REPORT CLINICAL HISTORY: ASCITES -- paracentesis -- froilan VALDIVIA -- 9300 ml FINDINGS: ULTRASOUND-GUIDED PARACENTESIS HISTORY: Ascites ATTENDING PHYSICIAN: Dr. Chaney PHYSICIAN EXPEDITIONARY FORCE COMBAT SKILLS: Froilan Goodwin PA-C FINDINGS: After informed consent was obtained and timeout procedure performed, fluid was localized in the right lower quadrant under ultrasound guidance and marked on the skin appropriately. The patient was then prepped and draped in the usual sterile fashion and the skin was anesthetized with 1% lidocaine. An ultrasound guided paracentesis was then performed using a Turkel needle. Approximately 9.3 liters of clear yellow fluid was removed. No fluid was sent to lab. The patient tolerated the procedure well and there were no immediate complications. IMPRESSION: Ultrasound guided right lower quadrant paracentesis as discussed above. Reviewed, Interpreted and Dictated by Brad Chaney MD Transcribed by SKIP Parham Authenticated and [facility]
--- OUTSIDE RECORDS SUMMARY | 2025-04-15 07:34 | XMS_ITS | Encounter Summary ---
Author Organization Healthcare Address [address] [place] [address] Care Team Providers Care Absence Management Consultant Name Role Phone Larry Bedolla MD Primary Care Provider + [phone] Sary Brannon APRN Unavailable [phone] Monika Hernandez APRN Primary Care Provider [phone] Encounter Details Date Type Department Care Team (Late st Contact Info) Description 12/31/2024 Orders Only External Location [address] [place] [address] Monika Hernandez APRN [address] [place], [place] [id number] Social History Tobacco Use Types Packs/Day Years [...] 12/31/2024 7:33 AM EDT Monika Hernandez APRN [facility] [place] PROCEDURES Final Result documented in this encounter Visit Diagnoses Not on filedocumented in this encounter Additional Health Concerns Assessment Noted Time A fall risk assessment has been complete d for the patient 01/02/2022 1:17 PM EDT A Body Mass Index follow-up plan has been documented for the patient 11/13/2022 11:41 AM EDT documented as of this encounter Care Teams Absence Management Consultant Relationship Specialty Start Date End Date Larry Bedolla MD [address] [place] [address] PCP - General 12/08/20 01/18/25 Monika Hernandez APRN [address] [place] [address] PCP - General 01/19/25 Sary Brannon APRN 1210 [facility] [address] [place] [address] Referring Physician Gastroenterology 01/07/25 documented as of this encounter
--- OUTSIDE RECORDS SUMMARY | 2025-04-15 07:34 | XMS_ITS | Encounter Summary ---
Author Organization Healthcare Address [address] [place] [address] Care Team Providers Care Mathematics Department Chair Name Role Phone Larry Bedolla MD Primary Care Provider + [phone] Sary Brannon APRN Unavailable [phone] Monika Hernandez APRN Primary Care Provider + [phone] Encounter Details Date Type Department Care Team (Late st Contact Info) Description 12/07/2024 Orders Only External Location [address] [place] [address] Provider, External Social History Tobacco Use Types [...] documented as of this encounter Care Teams Mathematics Department Chair Relationship Specialty Start Date End Date Larry Bedolla MD [address] [place] [address] PCP - General 12/08/20 01/18/25 Monika Hernandez APRN [address] [place] [address] PCP - General 01/19/25 Sary Brannon APRN 1210 [facility] [address] [place] [address] Referring Physician Gastroenterology 01/07/25 documented as of this encounter
--- OUTSIDE RECORDS SUMMARY | 2025-04-15 07:34 | XMS_ITS | Encounter Summary ---
Author Organization Healthcare Address [address] [place] [address] Care Team Providers Care Bulk Pigment Reducer Name Role Phone Larry Bedolla MD Primary Care Provider + [phone] Sary Brannon SPEEDER MACHINE OPERATOR Unavailable +[phone] Monika Hernandez APRN Primary Care Provider [phone] Reason for Visit * Reason Comments Med Refill Encounter Details Date Type Department Care Team (Late st Contact Info) Description 04/12/2021 [facility] [address] [place] [address] Lina Lowe, SPEEDER MACHINE OPERATOR [address] [facility] [address] [place] [address] Social History Tobacco Use Types [...] on filedocumented in this encounter Care Teams Bulk Pigment Reducer Relationship Specialty Start Date End Date Larry Bedolla MD [address] [place], [place] [address] PCP - General 12/08/20 01/18/25 Monika Hernandez APRN [address] [place] [address] PCP - General 01/19/25 Sary Brannon APRN 1210 [facility] [address] [place] [address] Referring Physician Gastroenterology 01/07/25 documented as of this encounter
--- OUTSIDE RECORDS SUMMARY | 2025-04-15 07:34 | XMS_ITS | Encounter Summary ---
Author Organization Healthcare Address [address] [place] [place] [id number] Care Team Providers Care Cosmetics Machine Operator Name Role Phone Sary Brannon APRN Unavailable [phone] Monika Hernandez APRN Primary Care Provider +[phone] Encounter Details Date Type Department Care Team [...] documented as of this encounter Care Teams Cosmetics Machine Operator Relationship Specialty Start Date End Date Monika Hernandez APRN [address] [place] [address] PCP - General 01/19/25 Sary Brannon APRN [address] [place] [address] Referring Physician Gastroenterology 01/07/25 documented as of this encounter
--- OUTSIDE RECORDS SUMMARY | 2025-04-15 07:34 | XMS_ITS | Encounter Summary ---
Author Organization Healthcare Address [address] [place] [address] Care Team Providers Care Fitness Trainer Name Role Phone Larry Bedolla MD Primary Care Provider + [phone] Sary Brannon APRN Unavailable [phone] Monika Hernandez APRN Primary Care Provider + [phone] Encounter Details Date Type Department Care Team (Late st Contact Info) Description 12/10/2024 Orders Only External Location [address] [place] [address] Provider, External Social History Tobacco Use Types [...] documented as of this encounter Care Teams Fitness Trainer Relationship Specialty Start Date End Date Larry Bedolla MD [address] [place] [address] PCP - General 12/08/20 01/18/25 Monika Hernandez APRN [address] [place] [address] PCP - General 01/19/25 Sary Brannon APRN 1210 [facility] [address] [place] [address] Referring Physician Gastroenterology 01/07/25 documented as of this encounter
--- OUTSIDE RECORDS SUMMARY | 2025-04-15 07:34 | XMS_ITS | Encounter Summary ---
Author Organization Healthcare Address [address] [place] [address] Care Team Providers Care Client Delivery Specialist Name Role Phone Larry Bedolla MD Primary Care Provider + [phone] Sary Brannon APRN Unavailable [phone] Monika Hernandez APRN Primary Care Provider + [phone] Encounter Details Date Type Department Care Team (Late st Contact Info) Description 12/06/2024 Orders Only External Location [address] [place] [address] Provider, External Social History Tobacco Use Types [...] documented as of this encounter Care Teams Client Delivery Specialist Relationship Specialty Start Date End Date Larry Bedolla MD [address] [place] [address] PCP - General 12/08/20 01/18/25 Monika Hernandez APRN [address] [place] [address] PCP - General 01/19/25 Sary Brannon APRN 1210 [facility] [address] [place] [address] Referring Physician Gastroenterology 01/07/25 documented as of this encounter
--- OUTSIDE RECORDS SUMMARY | 2025-04-15 07:34 | XMS_ITS | Encounter Summary ---
Author Organization Healthcare Address [address] [place] [address] Care Team Providers Care Mixer Blender Name Role Phone Larry Bedolla MD Primary Care Provider + [phone] Sary Brannon APRN Unavailable [phone] Monika Hernandez APRN Primary Care Provider + [phone] Encounter Details Date Type Department Care Team (Late st Contact Info) Description 12/04/2024 Orders Only External Location [address] [place] [address] Provider, External Social History Tobacco Use Types [...] documented as of this encounter Care Teams Mixer Blender Relationship Specialty Start Date End Date Larry Bedolla MD [address] [place] [address] PCP - General 12/08/20 01/18/25 Monika Hernandez APRN [address] [place] [address] PCP - General 01/19/25 Sary Brannon APRN 1210 [facility] [address] [place] [address] Referring Physician Gastroenterology 01/07/25 documented as of this encounter
--- OUTSIDE RECORDS SUMMARY | 2025-04-15 07:34 | XMS_ITS | Encounter Summary ---
Author Organization Healthcare Address [address] [place] [address] Care Team Providers Care Precision Dancer Name Role Phone Larry Bedolla MD Primary Care Provider + [phone] Sary Brannon APRN Unavailable [phone] Monika Hernandez APRN Primary Care Provider + [phone] Encounter Details Date Type Department Care Team (Late st Contact Info) Description 01/21/2022 Community [facility] [address] [place] [address] Larry Bedolla MD [address] [place], [place] [address] Central stenosis of spinal canal (Primary Dx) [...] as of this encounter Care Teams Precision Dancer Relationship Specialty Start Date End Date Larry Bedolla MD [address] [place] [address] PCP - General 12/08/20 01/18/25 Monika Hernandez APRN [address] [place], [place] [address] PCP - General 01/19/25 Sary Brannon APRN 1210 [facility] [address] [place] [address] Referring Physician Gastroenterology 01/07/25 documented as of this encounter
--- OUTSIDE RECORDS SUMMARY | 2025-04-15 07:34 | XMS_ITS | Encounter Summary ---
Author Organization Healthcare Address [address] [place] [address] Care Team Providers Care Mathematics Teacher Name Role Phone Larry Bedolla MD Primary Care Provider + [phone] Sary Brannon APRN Unavailable [phone] Monika Hernandez APRN Primary Care Provider + [phone] Encounter Details Date Type Department Care Team (Late st Contact Info) Description 12/09/2024 Orders Only External Location [address] [place] [address] Provider, External Social History Tobacco Use Types [...] as of this encounter Care Teams Mathematics Teacher Relationship Specialty Start Date End Date Larry Bedolla MD [address] [place] [address] PCP - General 12/08/20 01/18/25 Monika Hernandez APRN [address] [place] [address] PCP - General 01/19/25 Sary Brannon APRN 1210 [facility] [address] [place] [address] Referring Physician Gastroenterology 01/07/25 documented as of this encounter
--- OUTSIDE RECORDS SUMMARY | 2025-04-15 07:34 | XMS_ITS | Clinical Summary ---
[facility] [address] [place] [address] Care Team Providers Care Thread Reeler Name Role Phone Sherri Adkins APRN Primary [...] 2012 ZOSTER VACCINE (1 of 2) 2012 INFLUENZA VACCINE 02/25/2025 Insurance [employer] Care Teams Thread Reeler Relationship Specialty Start Date End Date Sherri Adkins APRN [address] [place] [address] PCP - General Family Medicine 03/12/16
--- OUTSIDE RECORDS SUMMARY | 2025-04-15 07:34 | XMS_ITS | Clinical Summary ---
Author Organization [employer] ([place], [place], [place], [place]) Address [address] [place] [address] Care Team Providers Care Barrel Lapper Name Role Phone Provider, Not In System [...] your living situation today? I have a [facility] place to live 11/30/2024 Think about [...] Do you speak a language other than [place] at [facility]? No 11/30/2024 Do you want help with [...] - Risk 60-74 years 1-dose series) 2022 Medicare IPPE (Welcome to [place]) [id number] 07/28/2024 COVID-19 VACCINE ( season) 2025 05/13/2021, 04/15/2021, 11/08/2020 Influenza Vaccine (#1) 2025 Pneumococcal 50+ years [...] t [facility] [address] [phone] from Last 3 Months or Most Recently Relevant to Health Maintenance Insurance [facility] [place] [address] [facility] Advance Directives For more information, please contact: [phone] * Full Code (Latest Code Status on File) Date Activated Date Inactivated Comments 11/30/2024 2:06 AM 12/14/2024 6:30 PM Care Teams Barrel Lapper Relationship Specialty Start Date End Date Provider, Not In System [place] PCP - General 12/14/24
--- OUTSIDE RECORDS SUMMARY | 2025-04-15 07:34 | XMS_ITS | Encounter Summary ---
Author Organization Healthcare Address [address] [place] [address] Care Team Providers Care Racing Board Marker Name Role Phone Larry Bedolla MD Primary Care Provider + [phone] Sary Brannon APRN Unavailable [phone] Monika Hernandez APRN Primary Care Provider [phone] Reason for Referral * Consultation (Routine) - Closed Specialty Diagnoses / Procedures Referred By Mayela may Referred To Contact Hepatology Diagnoses Bilious vomiting with nausea Anticentromere antibodies present Thrombopenia (CMS/HCC) Stage 3 hepatic fibrosis Raul Kincaid PA [address] [place] [address] Phone: tel: fax: Referral ID Status Reason Start Date Expiration Date V isits Requested Visits Authorized [id number] Closed Specialty Services Required 09/27/2021 03/29/2023 1 1 Encounter Details Date Type Department Care Team (Late st Contact Info) Description 09/27/2021 Community [facility] [address] [place] [address] Raul Kincaid PA [address] [place] [address] Bilious vomiting with nausea (Primary Dx); [...] fibrosis documented in this encounter Care Teams Racing Board Marker Relationship Specialty Start Date End Date Larry Bedolla MD [address] [place] [address] PCP - General 12/08/20 01/18/25 Monika Hernandez APRN [address] [place] [address] PCP - General 01/19/25 Sary Brannon APRN 1210 [facility] [address] [place] [address] Referring Physician Gastroenterology 01/07/25 documented as of this encounter
--- OUTSIDE RECORDS SUMMARY | 2025-04-15 07:34 | XMS_ITS | Encounter Summary ---
Author Organization Healthcare Address [address] 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, unspecified vessel or lesion type (CMS/[facility]) Social History Tobacco Use Types [...] (mild) Microalbuminuria Proteinuria 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 [address] [place] [address] Referring Physician Gastroenterology 01/07/25 documented as of this encounter
--- OUTSIDE RECORDS SUMMARY | 2025-04-15 07:34 | XMS_ITS | Referral Summary ---
Author Organization [employer] ([place], [place], [place]) Address [address] [place] [address] Care Team Providers Care Bilingual Teacher Aide Name Role Phone Provider, Not In System [...] your living situation today? I have a [facility] place to live 11/30/2024 Think about [...] Do you speak a language other than Swedish at [facility]? No 11/30/2024 [...] - 5.6 % 11/30/2024 9:17 AM EDT [facility] Comment: Hemoglobin A1C levels are related to mean glucose during the preceding 2-3 months. Less than 7% demonstrates glycemic control in diabetic patients. Hemoglobin AlC % Suggested Diagnosis > or = 6.5 Diabetic 5.7 - 6.4 Prediabetic <5.7 Non-diabetic eAVG Glucose 93.93 70 - 126 mg/dL 11/30/2024 9:17 AM EDT [facility] Blood Venipuncture / Unknown 11/30/2024 8:20 AM EDT 11/30/2024 9:07 AM EDT us Mikhail Hurtado MD LAB BLOOD ORDERABLES Final Resul t [facility] [address] [place] [address], [facility] [phone] from Last 3 Months or Most Recently Relevant to Health Maintenance Insurance [facility] AD[facility] Advance Directives For more information, please contact: [phone] * Full Code (Latest Code Status on File) Date Activated Date Inactivated Comments 11/30/2024 2:06 AM 12/14/2024 6:30 PM Care Teams Bilingual Teacher Aide Relationship Specialty Start Date End Date Provider, Not In System [place] PCP - General 12/14/24
--- OUTSIDE RECORDS SUMMARY | 2025-04-15 07:34 | XMS_ITS | Clinical Summary ---
Author Organization [facility] [place] [address] Care Team Providers Care Computer Aided Design Technician Name Role Phone Unavailable Primary Care [...]
--- OUTSIDE RECORDS SUMMARY | 2025-04-15 07:34 | XMS_ITS | Encounter Summary ---
Author Organization [facility] Address [address] [place] [address] Care Team Providers Care Silver Plater Name Role Phone Sary Brannon WIRELESS SALES REPRESENTATIVE Unavailable [phone] Monika Hernandez APRN Primary Care Provider + [phone] Reason for Visit * Reason Comments Appointment Confirmation and rem inders Encounter Details Date Type Department Care Team (Late st Contact Info) Description 02/17/2025 Telephone [facility] [address] [place] [address] Jessica Simms [place] [phone] Appointment (Confirmation and reminders) Social History Tobacco [...] documented as of this encounter Care Teams Silver Plater Relationship Specialty Start Date End Date Monika Hernandez APRN [address] [place] [address] PCP - General 01/19/25 Sary Brannon APRN 1210 [facility] [address] [place] [address] Referring Physician Gastroenterology 01/07/25 documented as of this encounter
--- OUTSIDE RECORDS SUMMARY | 2025-04-15 07:35 | XMS_ITS | Encounter Summary ---
Author Organization Healthcare Address [address] [place] [address] Care Team Providers Care General Internal Medicine Doctor Name Role Phone Larry Bedolla MD Primary Care Provider + [phone] Sary Brannon APRN Unavailable [phone] Monika Hernandez APRN Primary Care Provider + [phone] Encounter Details Date Type Department Care Team (Late st Contact Info) Description 11/30/2024 Orders Only External Location [address] [place] [address] Provider, External Social History Tobacco Use Types [...] documented as of this encounter Care Teams General Internal Medicine Doctor Relationship Specialty Start Date End Date Larry Bedolla MD [address] [place] [address] PCP - General 12/08/20 01/18/25 Monika Hernandez APRN [address] [place] [address] PCP - General 01/19/25 Sary Brannon APRN 1210 [facility] [address] [place] [address] Referring Physician Gastroenterology 01/07/25 documented as of this encounter
--- OUTSIDE RECORDS SUMMARY | 2025-04-15 07:35 | XMS_ITS | Encounter Summary ---
Author Organization Healthcare Address [address] [place] [address] Care Team Providers Care Aoc Director Combat Operations Officer Name Role Phone Larry Bedolla MD Primary Care Provider + [phone] Sary Brannon APRN Unavailable [phone] Monika Hernandez APRN Primary Care Provider + [phone] Encounter Details Date Type Department Care Team (Late st Contact Info) Description 12/03/2024 Orders Only External Location [address] [place] [address] Provider, External Social History Tobacco Use Types [...] documented as of this encounter Care Teams Aoc Director Combat Operations Officer Relationship Specialty Start Date End Date Larry Bedolla MD [address] [place] [address] PCP - General 12/08/20 01/18/25 Monika Hernandez APRN [address] [place] [address] PCP - General 01/19/25 Sary Brannon APRN 1210 [facility] [address] [place] [address] Referring Physician Gastroenterology 01/07/25 documented as of this encounter
--- OUTSIDE RECORDS SUMMARY | 2025-04-15 07:35 | XMS_ITS | Encounter Summary ---
Author Organization Healthcare Address [address] [place] [address] Care Team Providers Care Ticket Printer And Tagger Name Role Phone Larry Bedolla MD Primary Care Provider + [phone] Sary Brannon APRN Unavailable [phone] Monika Hernandez APRN Primary Care Provider + [phone] Encounter Details Date Type Department Care Team (Late st Contact Info) Description 11/30/2024 Orders Only External Location [address] [place] [address] Provider, External Social History Tobacco Use Types [...] documented as of this encounter Care Teams Ticket Printer And Tagger Relationship Specialty Start Date End Date Larry Bedolla MD [address] [place] [address] PCP - General 12/08/20 01/18/25 Monika Hernandez APRN [address] [place] [address] PCP - General 01/19/25 Sary Brannon APRN [address] [place] [address] Referring Physician Gastroenterology 01/07/25 documented as of this encounter
--- OUTSIDE RECORDS SUMMARY | 2025-04-15 07:35 | XMS_ITS | Encounter Summary ---
Author Organization Healthcare Address [address] [place] [address] Care Team Providers Care Athletics Teacher Name Role Phone Larry Bedolla MD Primary Care Provider + [phone] Sary Brannon APRN Unavailable [phone] Monika Hernandez APRN Primary Care Provider + [phone] Encounter Details Date Type Department Care Team (Late st Contact Info) Description 11/30/2024 Orders Only External Location [address] [place] [address] Provider, External Social History Tobacco Use Types [...] documented as of this encounter Care Teams Athletics Teacher Relationship Specialty Start Date End Date Larry Bedolla MD [address] [place] [address] PCP - General 12/08/20 01/18/25 Monika Hernandez APRN [address] [place] [address] PCP - General 01/19/25 Sary Brannon APRN 1210 [facility] [address] [place] [address] Referring Physician Gastroenterology 01/07/25 documented as of this encounter
--- OUTSIDE RECORDS SUMMARY | 2025-04-15 07:35 | XMS_ITS | Encounter Summary ---
Author Organization Healthcare Address [address] [place] [address] Care Team Providers Care Biomass Boiler Operator Name Role Phone Larry Bedolla MD Primary Care Provider + [phone] Sary Brannon APRN Unavailable [phone] Monika Hernandez APRN Primary Care Provider + [phone] Encounter Details Date Type Department Care Team (Late st Contact Info) Description 12/10/2024 Orders Only External Location [address] [place] [address] Provider, External Social History Tobacco Use Types [...] documented as of this encounter Care Teams Biomass Boiler Operator Relationship Specialty Start Date End Date Larry Bedolla MD [address] [place] [address] PCP - General 12/08/20 01/18/25 Monika Hernandez APRN [address] [place] [address] PCP - General 01/19/25 Sary Brannon APRN 1210 [facility] [address] [place] [address] Referring Physician Gastroenterology 01/07/25 documented as of this encounter
--- OUTSIDE RECORDS SUMMARY | 2025-04-15 07:35 | XMS_ITS | Encounter Summary ---
Author Organization Healthcare Address [address] [place] [address] Care Team Providers Care Materials Engineering Technician Name Role Phone Larry Bedolla MD Primary Care Provider + [phone] Sray Brannon APRN Unavailable [phone] Monika Hernandez APRN Primary Care Provider + [phone] Encounter Details Date Type Department Care Team (Late st Contact Info) Description 12/02/2024 Orders Only External Location [address] [place] [address] Provider, External Social History Tobacco Use Types [...] documented as of this encounter Care Teams Materials Engineering Technician Relationship Specialty Start Date End Date Larry Bedolla MD [address] [place] [address] PCP - General 12/08/20 01/18/25 Monika Hernandez APRN [address] [place] [address] PCP - General 01/19/25 Sary Brannon APRN [address] [place] [address] [address] [place] [address] Referring Physician Gastroenterology 01/07/25 documented as of this encounter
--- OUTSIDE RECORDS SUMMARY | 2025-04-15 07:35 | XMS_ITS | Encounter Summary ---
Author Organization Healthcare Address [address] [place] [address] Care Team Providers Care Supervisor Correspondence Section Name Role Phone Larry Bedolla MD Primary Care Provider + [phone] Sary Brannon APRN Unavailable [phone] Monika Hernandez APRN Primary Care Provider + [phone] Encounter Details Date Type Department Care Team (Late st Contact Info) Description 04/30/2018 Orders Only External Location [address] [place] [address] Provider, External Social History Tobacco Use Types [...] filedocumented in this encounter Care Teams Supervisor Correspondence Section Relationship Specialty Start Date End Date Larry Bedolla MD [address] [place] [address] PCP - General 12/08/20 01/18/25 Monika Hernandez APRN [address] [place] [address] PCP - General 01/19/25 Sary Brannon APRN 1210 [facility] [address] [place] [address] Referring Physician Gastroenterology 01/07/25 documented as of this encounter
--- OUTSIDE RECORDS SUMMARY | 2025-04-15 07:35 | XMS_ITS | Clinical Summary ---
Author Organization Healthcare Address [address] [place] [address] Care Team Providers Care Data Integrity Analyst Name Role Phone Sary Brannon WORK ENVIRONMENT SAFETY INSPECTOR Unavailable [phone] Monika Hernandez APRN Primary Care Provider [phone] Allergies No known active allergies Medications bisoprolol [...] 3 INJECTIONS DAILY 11/11/19 Active HYDROcodone-acetam inophen ([place]) 10-325 MG tablet 10/24/19 Active spironolactone (Aldactone) 25 MG tablet Take 0.5 tablets by mouth daily. 10/03/19 Active furosemide (Lasix) 40 MG tablet Take by mouth 2 (two) times a day. 10/03/19 Active Insulin Lispro (HUMALOG IJ) Inject as directed. Active dapagliflozin (Farxiga) 5 MG tabletIndications: CKD (chronic kidney disease) stage 2, GFR 60-89 ml/min,Microalbumi ruperto,Coronary artery disease involving kiana heart with angina pectoris and documented spasm, [...] Encounters Date Type Department Care Team Description 04/14/2025 Telephone [facility] [address] [address] Varun Bass 02/22/2025 9:20 AM EDT Office Visit [facility] [address] [address] Ollie Calvo MD End-stage liver disease (CMS/HCC) (Primary Dx); 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); Portal hypertension (CMS/HCC); Other ascites; GERMÁN (acute kidney injury) (CMS/HCC) 02/22/2025 Travel 02/17/2025 Telephone [facility] [place] [address] [address] Jessica Simms Appointment (Confirmation and reminders) 01/19/2025 Telephone [facility] [place] [address] [phone] Jessica Simms Appointment (scheduling) from Last 3 Months Immunizations Immunization Administration [...] 06/04/2022 01/02/2022, 11/21/2021 [facility]-Depression Screening 01/02/2023 01/02/2022 [id number] Vaccine ( season) 2025 05/13/2021, 04/15/2021, 11/08/2020, Additional history exists [facility]-Influenza Vaccine (#1) 03/28/202505/15, 04/25/2019, 05/01/2018, Additional [...] 7:18 AM EDT End-stage liver disease (CMS/HCC) HEMOGLOBIN A1C Routine 01/24/2016 1:47 PM EDT from Last 3 Months or Most Recently Relevant to Health Maintenance Results * HEPATITIS B SURFACE ANTIBODY, QUANTITATIVE (02/22/2025 7:18 AM EDT) Hepatitis B Surface Antibody, Quantitative <8.00 NonReactiv e: <8, Grayzone: 8 - <12, Reactive: >= 12 mIU/mL 02/22/2025 8:[address] [facility] Comment: Nonreactive. Individual is considered not immune to HBV infection. Blood Venous blood specimen / Unknown Venipuncture / Unknown 02/22/2025 7:18 AM EDT 02/22/2025 7:48 AM EDT us Edil Kiran MD LAB BLOOD ORDERABLES Final Resul t [facility] [address] [place] [address] * Alpha fetoprotein, serum (02/22/2025 7:18 AM EDT) Alpha Fetoprotein, Serum <2.3 <10.0 ng/mL 02/22/2025 8:[address] [facility] Blood Venous blood specimen / Unknown Venipuncture / Unknown 02/22/2025 7:18 AM EDT 02/22/2025 7:[address] [facility] - 02/22/2025 8:25 AM EDT Performed by Stone electrochemiluminescent immunoassay which is traceable to the 1st AFP IRP WHO Reference standard 72/255. Results obtained with different test methods or kits cannot be used interchangeably. us Edil Kiran MD LAB BLOOD ORDERABLES Final Resul t Performing Organization Address City/[facility] Co de Phone Number [facility] [address] [place] [address] * (ABNORMAL) Hepatitis A Antibody IgG (02/22/2025 7:18 AM EDT) Hepatitis A Antibody IgG Positive(A ) Negative 02/22/2025 8:[address] [facility] Blood Venous blood specimen / Unknown Venipuncture / Unknown 02/22/2025 7:18 AM EDT 02/22/2025 7:48 AM EDT Edil Kiran MD LAB BLOOD ORDERABLES Final Resul t Performing Organization Address [facility] [place] [address] * Hepatitis C Antibody (02/22/2025 7:18 AM EDT) Hepatitis C Antibody Negative Negative 02/22/2025 8:[address] [facility] Blood Venous blood specimen / Unknown Venipuncture / Unknown 02/22/2025 7:18 AM EDT 02/22/2025 7:48 AM EDT Edil Kiran MD LAB BLOOD ORDERABLES Final Resul t Performing Organization Address City/[facility] de Phone Number [facility] [address] [place] [address] * Nicotine Cotinine Metabolite (02/22/2025 7:18 AM EDT) NICOTINE <5 <5 ng/mL 02/24/2025 2:[address] [facility] Cotinine <5 <5 ng/mL 02/24/2025 2:[address] [facility] Blood Venous blood specimen / Unknown Venipuncture / Unknown 02/22/2025 7:18 AM EDT 02/22/2025 7:[address] [facility] - 02/24/2025 2:34 PM EDT Testing performed by LC-MS/MS at the [facility]. This test was developed and its performance characteristics determined by [facility]. This assay has not been cleared by the FDA. The laboratory is regulated under CLIA as qualified to perform high-complexity testing. This test is used for clinical purposes. Edil Kiran MD LAB BLOOD ORDERABLES Final Resul t Performing Organization Address [facility] Co de Phone Number [facility] [address] [place] [address] * ABO/Rh (02/22/2025 7:18 AM EDT) ABO/Rh O Positive 02/22/2025 7:14 AM EDT BLOOD BANK Blood Venous blood specimen / Unknown Venipuncture / Unknown 02/22/2025 7:18 AM EDT 02/22/2025 7:46 AM EDT Edil Kiran MD LAB BLOOD BANK TEST ORDERABLES F inal Result Performing Organization Address [facility] de Phone Number BLOOD BANK [address] [place] [address] * Hepatitis B Surface Antigen (02/22/2025 7:18 AM EDT) Hepatitis B Surf Antigen Negative Negative 02/22/2025 8:44 AM EDT [facility] Blood Venous blood specimen / Unknown Venipuncture / Unknown 02/22/2025 7:18 AM EDT 02/22/2025 7:48 AM EDT Edil Kiran MD LAB BLOOD ORDERABLES Final Resul t Performing Organization Address [facility] de Phone Number [facility] [address] [place] [address] * (ABNORMAL) Protime-INR (02/22/2025 7:18 AM EDT) Prothrombin Time 18.7(H) 12.0 - 14.3 sec LAB COAGULATION METHOD 02/22/2025 8:[address] [facility] INR 1.6(H) 0.9 - 1.1 LAB COAGULATION METHOD 02/22/2025 8:[address] [facility] Blood Venous blood specimen / Unknown Venipuncture / Unknown 02/22/2025 7:18 AM EDT 02/22/2025 7:[address] [facility] - 02/22/2025 8:04 AM EDT OPTIMAL INR RANGES FOR PATIENT ON ORAL ANTICOAGULANT THERAPY Prevention of venous thromboembolism INR 2.0 to 3.0 In patients with heart disease: Atrial fibrillation INR 2.0 to 3.0 Valvular heart disease INR 2.0 to 3.0 Tissue heart valves INR 2.0 to 3.0 Mechanical prosthetic valves INR 2.5 to 3.5 Prevention of recurrent VT INR 2.5 to 3.5 us Edil Kiran MD LAB BLOOD ORDERABLES Final Resul t [facility] [address] [place] [address] * (ABNORMAL) Hemogram (CBC) (02/22/2025 7:18 AM EDT) WBC Count 2.35(L) 3.70 - 10.30 10*3/uL LAB HEMATOLOGY METHOD 02/22/2025 9:[address] [facility] RBC Count 3.33(L) 3.90 - 5.20 10*6/uL LAB HEMATOLOGY METHOD 02/22/2025 9:[address] [facility] HGB 10.2(L) 11.2 - 15.7 g/dL LAB HEMATOLOGY METHOD 02/22/2025 9:[address] [facility] HCT 31.8(L) 34.0 - 45.0 % LAB HEMATOLOGY METHOD 02/22/2025 9:[address] [facility] Platelet Count 75(L) 155 - 369 10*3/uL LAB HEMATOLOGY METHOD 02/22/2025 9:[address] [facility] MCV 96 79 - 98 fL LAB HEMATOLOGY METHOD 02/22/2025 9:[address] [facility] MCH 30.6 26.0 - 32.0 pg LAB HEMATOLOGY METHOD 02/22/2025 9:[address] [facility] MCHC 32.1 30.7 - 35.5 g/dL LAB HEMATOLOGY METHOD 02/22/2025 9:[address] [facility] RDW 15.7(H) 11.5 - 14.5 % LAB HEMATOLOGY METHOD 02/22/2025 9:[address] [facility] MPV 10.5 8.8 - 12.5 fL LAB HEMATOLOGY METHOD 02/22/2025 9:[address] [facility] nRBC 0.0 <=0.0 per 100 WBCs LAB HEMATOLOGY METHOD 02/22/2025 9:[address] [facility] Blood Venous blood specimen / Unknown Venipuncture / Unknown 02/22/2025 7:18 AM EDT 02/22/2025 7:41 AM EDT us Edil Kiran MD LAB BLOOD ORDERABLES Final Resul t [facility] [address] [place] [address] * (ABNORMAL) Comprehensive metabolic panel (02/22/2025 7:18 AM EDT) Glucose, Plasma 283(H) 74 - 99 mg/dL 02/22/2025 8:[address] [facility] BUN, Plasma 30(H) 8 - 23 mg/dL 02/22/2025 8:[address] [facility] Creatinine, Plasma 2.54(H) 0.60 - 1.10 mg/dL 02/22/2025 8:[address] [facility] BUN/Creatinine Ratio 12 02/22/2025 8:[address] [facility] Sodium, Plasma 137 136 - 145 mmol/L 02/22/2025 8:[address] [facility] Potassium, Plasma 4.3 3.6 - 4.9 mmol/L 02/22/2025 8:[address] [facility] Chloride, Plasma 105 97 - 107 mmol/L 02/22/2025 8:[address] [facility] CO2, Plasma 24 22 - 29 mmol/L 02/22/2025 8:[address] [facility] Anion Gap 8 6 - 16 mmol/L 02/22/2025 8:[address] [facility] Total Calcium, Plasma 8.6(L) 8.9 - 10.2 mg/dL 02/22/2025 8:[address] [facility] Total Protein 7.2 6.3 - 7.9 g/dL 02/22/2025 8:[address] [facility] Albumin, Plasma 2.9(L) 3.5 - 5.2 g/dL 02/22/2025 8:[address] [facility] AST, Plasma 37(H) 10 - 35 U/L 02/22/2025 8:[address] [facility] ALT, Plasma 15 10 - 35 U/L 02/22/2025 8:[address] [facility] Alkaline Phosphatase, Plasma 121 46 - 142 U/L 02/22/2025 8:[address] [facility] Total Bilirubin, Plasma 0.9 0.2 - 1.1 mg/dL 02/22/2025 8:[address] [facility] eGFRcr 20.9 mL/min/1.7 3m*2 02/22/2025 8:[address] [facility] Comment:Reported eGFRcr in m L/min/1.73m2 is based the CKD-EPI 2020 equation that does not use a race coefficient. Blood Venous blood specimen / Unknown Venipuncture / Unknown 02/22/2025 7:18 AM EDT 02/22/2025 7:47 AM EDT us Edil Kiran MD LAB BLOOD ORDERABLES Final Resul t [facility] [address] [place] [address] * (ABNORMAL) Hemoglobin A1c (01/24/2016 1:47 PM [...] EDT 01/24/2016 6:17 PM EDT Sherri Adkins WORK ENVIRONMENT SAFETY INSPECTOR LAB BLOOD ORDERABLES Final Result SUNQUEST from Last 3 Months or Most Recently Relevant to Health Maintenance Insurance [employer] MED[employer]ARE [employer]ID Care Teams Data Integrity Analyst Relationship Specialty Start Date End Date Monika Hernandez APRN [address] [place] [address] PCP - General 01/19/25 Sary Brannon APRN 1210 [facility] [address] [place] [address] Referring Physician Gastroenterology 01/07/25
--- OUTSIDE RECORDS SUMMARY | 2025-04-15 07:35 | XMS_ITS | Encounter Summary ---
Author Organization Healthcare Address [address] [place] [address] Care Team Providers Care Cabin Worker Name Role Phone Sary Brannon BONDING MACHINE TENDER Unavailable [phone] Carlos Hernandezica ÁNGEL Primary Care Provider + [phone] Encounter Details Date Type Department Care Team (Late st Contact Info) Description 04/14/2025 Telephone [facility] [address] [facility] [address] [place] [id number] Varun Bass Social History Tobacco Use Types Packs/Day Years [...] encounter Miscellaneous Notes * Telephone Encounter - Varun Bass - 04/14/2025 12:05 PM EDT Called Mrs. Coronel to discuss r/s her missed appt on 03/22. Patient did not answer. Left a VM asking her to give me a call back to r/s at [phone]. documented in this encounter Plan of Treatment [...] documented as of this encounter Care Teams Cabin Worker Relationship Specialty Start Date End Date Monika Hernandez APRN [address] [place] [address] PCP - General 01/19/25 Sary Brannon APRN [facility] [address] [place] [address] Referring Physician Gastroenterology 01/07/25 documented as of this encounter
--- OUTSIDE RECORDS SUMMARY | 2025-04-15 07:35 | XMS_ITS | Encounter Summary ---
Author Organization Healthcare Address [address] [place] [address] Care Team Providers Care Catapult And Arresting Gear Officer Name Role Phone Laryr Bedolla MD Primary Care Provider + [phone] Sary Brannon CHARGE ACCOUNT IDENTIFICATION CLERK Unavailable [phone] Monika Hernandez APRN Primary Care Provider [phone] Encounter Details Date Type Department Care Team (Late st Contact Info) Description 01/03/2025 Community [facility] [address] [place] [address] Sary Brannon, CHARGE ACCOUNT IDENTIFICATION CLERK [address] [place], [place] [id number] Social History Tobacco Use Types Packs/Day Years [...] documented as of this encounter Care Teams Catapult And Arresting Gear Officer Relationship Specialty Start Date End Date Larry Bedolla MD [address] [place] [address] PCP - General 12/08/20 01/18/25 Monika Hernandez APRN [address] [place] [address] PCP - General 01/19/25 Sary Brannon APRN [address] [place] [address] Referring Physician Gastroenterology 01/07/25 documented as of this encounter
--- OUTSIDE RECORDS SUMMARY | 2025-04-15 07:35 | XMS_ITS | Encounter Summary ---
Author Organization Healthcare Address [address] [place] [address] Care Team Providers Care Spring Inspector Name Role Phone Larry Bedolla MD Primary Care Provider + [phone] Sary Brannon APRN Unavailable [phone] Monika Hernandez APRN Primary Care Provider + [phone] Encounter Details Date Type Department Care Team (Late st Contact Info) Description 10/26/2024 Orders Only External Location [address] [place] [address] Provider, External Social History Tobacco Use Types [...] documented as of this encounter Care Teams Spring Inspector Relationship Specialty Start Date End Date Larry Bedolla MD [address] [place] [address] PCP - General 12/08/20 01/18/25 Monika Hernandez APRN [address] [place] [address] PCP - General 01/19/25 Sary Brannon APRN 1210 [facility] [address] [place] [address] Referring Physician Gastroenterology 01/07/25 documented as of this encounter
--- OUTSIDE RECORDS SUMMARY | 2025-04-15 07:35 | XMS_ITS ---
Author Organization [facility] Address [address] [place] [address] Care Team Providers Care Inspector Cold Working Name Role Phone Sary Brannon APRN Unavailable [phone] Monika Hernandez APRN Primary Care Provider [phone] Transplant Episode Liver Candidate [facility] ([place], [place]) - JOSÉ LUIS Referred on 01/07/2025 Marked as Active on 01/07/2025 Liver CoordinatorMoraima Centeno RN Fax: N/A Email: N/A Scores Score Value Updated Expires Exceptions/Saloni sons CPRA Not available MELD (Calc) 22 02/22/2025 Care Team Name Role Phone Fax Email Moraima Centeno RN Liver Coordinator [phone] N/A N/A Sary Brannon APRN Referring Physician [phone] N/A Gem Clark Photograph Enlarger [phone] N/A N/A Edil Kiran MD Surgeon [phone] N/A Events Pre-Transplant Referred: 01/07/2025 Committee: 02/28/2025 Appointments (03/15/2025 - 05/15/2025) When With Visit Type Description 03/22/2025 Transplant LAB No Show
--- OUTSIDE RECORDS SUMMARY | 2025-04-15 07:35 | XMS_ITS | Encounter Summary ---
Author Organization Healthcare Address [address] [place] [address] Care Team Providers Care Head Of Physics Name Role Phone Larry Bedolla MD Primary Care Provider + [phone] Sary Brannon APRN Unavailable [phone] Monika Hernandez APRN Primary Care Provider + [phone] Encounter Details Date Type Department Care Team (Late st Contact Info) Description 11/29/2024 Orders Only External Location [address] [place] [address] Provider, External Social History Tobacco Use Types [...] as of this encounter Care Teams Head Of Physics Relationship Specialty Start Date End Date Larry Bedolla MD [address] [place] [address] PCP - General 12/08/20 01/18/25 Monika Hernandez APRN [address] [place] [address] PCP - General 01/19/25 Sary Brannon APRN [address] [place] [address] [address] [place] [address] Referring Physician Gastroenterology 01/07/25 documented as of this encounter
--- OUTSIDE RECORDS SUMMARY | 2025-04-15 07:35 | XMS_ITS | Encounter Summary ---
Author Organization Healthcare Address [address] [place] [address] Care Team Providers Care Tunnel Kiln Operator Name Role Phone Larry Bedolla MD Primary Care Provider + [phone] Sary Brannon APRN Unavailable [phone] Monika Hernandez APRN Primary Care Provider + [phone] Encounter Details Date Type Department Care Team (Late st Contact Info) Description 11/30/2024 Orders Only External Location [address] [place] [address] Provider, External Social History Tobacco Use Types [...] documented as of this encounter Care Teams Tunnel Kiln Operator Relationship Specialty Start Date End Date Larry Bedolla MD [address] [place] [address] PCP - General 12/08/20 01/18/25 Monika Hernandez APRN [address] [place] [address] PCP - General 01/19/25 Sary Brannon APRN 1210 [facility] [address] [place] [address] Referring Physician Gastroenterology 01/07/25 documented as of this encounter
--- OUTSIDE RECORDS SUMMARY | 2025-04-15 07:35 | XMS_ITS | Encounter Summary ---
Author Organization Healthcare Address [address] [place] [address] Care Team Providers Care Obstetrician Name Role Phone Larry Bedolla MD Primary Care Provider + [phone] Sary Brannon APRN Unavailable [phone] Monika Hernandez APRN Primary Care Provider + [phone] Encounter Details Date Type Department Care Team (Late st Contact Info) Description 04/02/2017 Orders Only External Location [address] [place] [address] Provider, External Social History Tobacco Use Types [...] on filedocumented in this encounter Care Teams Obstetrician Relationship Specialty Start Date End Date Larry Bedolla MD [address] [place] [address] PCP - General 12/08/20 01/18/25 Monika Hernandez APRN [address] [place] [address] PCP - General 01/19/25 Sary Brannon APRN 1210 [facility] [address] [place] [address] Referring Physician Gastroenterology 01/07/25 documented as of this encounter
[2025-04-15 08:51] LABS: Blood Urea Nitrogen 38 mg/dl (7-17); Creatinine,Serum 2.30 mg/dl (0.52-1.04); Estimated Glomerular Filt Rate 21 ml/min (>60); GFR (African American) 26 ML/MIN (>60)
[2025-04-15] MEDS: 0.9 % SODIUM CHLORIDE 50 ML 100 ML IV (09:45)
[2025-04-15] MEDS: ALBUMIN HUMAN 12.5 GM/50 ML BAG IV ×6 (09:45→12:25)
--- NOTE | 2025-04-15 11:00 | CA_ITS ---
APPROVED REPORT EXAM: Comprehensive 2D, Doppler, and color-flow [facility] Director: ROSIBEL Narvaez, RVS Ht: 5 ft 7 in Wt: 160lbs BSA: 1.84 BP: 141/82 mmHg Indications: Chronic liver diease, CAD-5 stents, DM. COPD, AFib 2D Dimensions IVSd 1.73 cm LVEF (Visual) 42.10 % PWd 1.01 cm LA Volume 98.80 mL LVDd 3.67 cm LA Volume Index 53.70 mL/m2 (M/F) 16-34 LVDs 2.93 cm EF AP4 48.60 % Aortic Root 2.45 cm GL Strain -16.3 % Left Atrium 4.36 cm RVID Base (AP4) 3.14 cm (M/F) 2.5-4.1 LVOT 1.93 cm (M/F) 1.5-2.5 M-Mode Dimensions RVDd 3.01 cm (0.9-2.6) LVDd 3.67 cm (3.5-5.7) Ao Diam 2.80 cm (2.0-3.7) LVDs 3.44 cm (3.5-5.7) IVSd 1.36 cm (0.6-1.1) PWd 0.97 cm (0.6-1.1) EF (Teich) 51.30% EPSs 0.39 cm FS 24.20% EDV (Teich) 100.30 mL TAPSE 2.12 (<1.7) ESV (Teich) 48.80 mL LV Diastology E Decel Time 167 (160-240 msec) E/A Ratio 0.68 MED E' 3.7 (>= 7 cm/sec) MED A' 14.00 cm/s E'/MED E' Ratio 25.27 (<= 14) LAT E' 11.6 (>= 10 cm/sec) LAT A' 12.10 cm/s E/LAT E' Ratio 8.06 (<= 14) Aortic Valve LVOT Max 126.0 (70-110 cm/s) CARROLL Index 0.78 cm2/m2 LVOT VTI 27.49 cm AoV Peak Jose Armando. 282.0 (50-130 cm/s) AO Peak GR. 29.80 mmHg AO Mean GR. 15.70 (<5 mmHg) AO VTI 56.0 (18-25 cm) CARROLL (VTI) 1.44 (2.5-4.5 cm2) Mitral Valve MV E Max Jose Armando. 93.0 (40-130 cm/s) MV A Velocity 137.0 (40-130 cm/s) E/A Ratio 0.68 MV Decel. Time 167 (160-240 ms) Tricuspid Valve TR P. Velocity 201.00 cm/s RAP Estimate 10.00 mmHg RVSP 26.20 mmHg Left Ventricle The left ventricle is normal size. Left ventricular systolic function is normal. The left ventricular ejection fraction is within the normal range. There is increased left ventricular wall thickness. There is normal LV segmental wall motion. The left ventricular diastolic function is indeterminate. LVEF is 60%. Right Ventricle The right ventricle is normal size. The right ventricular systolic function is normal. Atria The left atrium is moderately dilated. The right atrium is mildly dilated. There is no color Doppler evidence of interatrial shunt. Aortic Valve The aortic valve is mildly thickened. Mild aortic stenosis is present. CARROLL by continuity equation is 1.6 cm2. Peak velocity is 2.8 m/s. Mean AV gradient is 11 mmHg. Max AV gradient is 20 mmHg. Trace aortic regurgitation is present. Mitral Valve The mitral valve is normal in structure. No evidence of mitral valve stenosis. Mild mitral regurgitation is present. Tricuspid Valve The tricuspid valve leaflets are thin and pliable. Mild tricuspid regurgitation. RVSP is 20-25 mmHg. Pulmonic Valve The pulmonary valve is grossly normal in structure. Mild pulmonic valve regurgitation is present. Great Vessels The aortic root is normal in size. IVC is normal in size and collapses >50% with inspiration. Pericardium There is no pericardial effusion. Other Information Study Quality: Technically Difficult Conclusion Normal biventricular systolic function. Biatrial dilation. Mild (CARROLL by continuity equation is 1.6 cm2. Peak velocity is 2.8 m/s. Mean AV gradient is 11 mmHg. Max AV gradient is 20 mmHg). Mild MR, mild TR, mild OH. Electronically signed by : Courtney Ramesh MD 04/17/2025 19:30:02
== END 2025-04-15 23:59 | disposition home or self-care (01) ==
LOC: RAD 07:32 → INF 09:11
PROVIDERS: PCP Family Medicine; Visit Provider Nurse Practitioner Family
DX: I25.10 Atherosclerotic heart disease of native coronary artery without angina pectoris (principal); I51.89 Other ill-defined heart diseases; I48.0 Paroxysmal atrial fibrillation; R18.8 Other ascites
CPT/HCPCS: 49083; 82565; 84520; 93306; 96365; 96366; 96374; P9047

== ENCOUNTER 2025-04-27 09:27 | Outpatient (CLI) | payer MEDICARE, MEDICAID, SELFPAY ==
--- OUTSIDE RECORDS SUMMARY | 2018-11-16 06:00 | XMS_ITS | Continuity of Care Document ---
Author Organization [facility] Address [address] [place] [phone] Phone Care Team Providers Care Channeler Runner Name Role Phone Dane Pink MD Unavailable [...] Provider Providers Copied on Encounter Connor [place] [facility], [address] [place] [address], [id number], tel:[phone] JENNIFER Torres [place] No Information 9 Apryl Vela. [address] [place] [address], [id number] , . tel:[phone] OFFICE/OUTPA TIENT VISIT, EST Connor [place] [facility], [address] [place] [address], [address] [place] [address], tel:[phone] [place] inflammation ck OS (chief complaint) Iritis, recurrent, left eye 9 Apryl Vela. [address] [place] [address], [address] [place] [address] , . tel:[phone] Referring Provider: Self Referred Jose C Connor [place] [facility], [address] [place] [address], [id number], tel:[phone] JENNIFER Torres [place] Anterior Seg ck (chief complaint) Iritis, recurrent, left eye 9 Apryl Vela. [address] [place] [address], [id number] , . tel:[phone] Referring Provider: Maria Teresa Santos, [employer] [address] [place] [address], [facility]. tel:[phone] Family History Family Member Type Diagnosis Age At Onset Problem (finding) Family history of Diabe reynold mellitus Problem (finding) Family history of Cardi ovascular disease Problem (finding) Family history of glauc haroon Payers Payer name Insurance type Covered alliance party ID Authoriza tion(s) Medicare [facility] [id number] Social History Type Description Quantity Date Captured [...]
--- OUTSIDE RECORDS SUMMARY | 2025-04-27 09:29 | XMS_ITS | Encounter Summary ---
Author Organization Healthcare Address [address] [place] [address] Care Team Providers Care Mems Integration Engineer Name Role Phone Larry Bedolla MD Primary Care Provider + [phone] Sary Brannon APRN Unavailable [phone] Monika Hernandez APRN Primary Care Provider [phone] Reason for Referral * Consultation (Routine) - Closed Specialty Diagnoses / Procedures Referred By Mayela may Referred To Contact Hepatology Diagnoses Bilious vomiting with nausea Anticentromere antibodies present Thrombopenia Stage 3 hepatic fibrosis Raul Kincaid PA [facility] [place] [address] Phone: tel: fax: Referral ID Status Reason Start Date Expiration Date V isits Requested Visits Authorized [id number] Closed Specialty Services Required 09/27/2021 03/29/2023 1 1 Encounter Details Date Type Department Care Team (Late st Contact Info) Description 09/27/2021 Community [facility] [address] [place] [address] Raul Kincaid PA [address] [place] [address] Bilious vomiting with nausea (Primary [...] with nausea- Primary Anticentromere antibodies present Thrombopenia Unspecified thrombocytopenia Stage 3 hepatic fibrosis documented in this encounter Care Teams Mems Integration Engineer Relationship Specialty Start Date End Date Larry Bedolla MD [address] [place] [id number] PCP - General 12/08/20 01/18/25 Monika Hernandez APRN [address] [place] [address] PCP - General 01/19/25 Sary Brannon APRN [address] [place] [address] [address] [place] [address] Referring Physician Gastroenterology 01/07/25 documented as of this encounter
--- OUTSIDE RECORDS SUMMARY | 2025-04-27 09:29 | XMS_ITS | Encounter Summary ---
Author Organization Healthcare Address [address] 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, unspecified vessel or lesion type (CMS/[facility]) Social History Tobacco Use Types [...] (mild) Microalbuminuria Proteinuria 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, unspecified vessel or lesion type documented in this encounter Additional Health Concerns Assessment Noted Time A fall risk assessment has been complete d for the patient 01/02/2022 1:17 PM EDT A Body Mass Index follow-up plan has been documented for the patient 11/13/2022 11:41 AM EDT documented as of this encounter Care Teams Intelligence Agent Relationship Specialty Start Date End Date Larry Bedolla MD [address] [place], [place] [id number] PCP - General 12/08/20 01/18/25 Monika Hernandez APRN [address] [place], [place] [id number] PCP - General 01/19/25 Sary Brannon APRN 1210 [facility] [address] [place], [place] [id number] Referring Physician Gastroenterology 01/07/25 documented as of this encounter
--- OUTSIDE RECORDS SUMMARY | 2025-04-27 09:29 | XMS_ITS | Referral Summary ---
Author Organization [employer] ([place], [place], [place], [place]) Address [address] [place] [address] Care Team Providers Care Marine Pilot Name Role Phone Provider, Not In System [...] your living situation today? I have a [facility] place to live 11/30/2024 Think [...] Do you speak a language other than Lao at [facility]? No 11/30/2024 Do you want [...] Resul t [facility] [address] [place] [address], [facility] [phone] from Last 3 Months or Most Recently Relevant to Health Maintenance Insurance [facility] ADV [facility] Advance Directives For more information, please contact: [phone] * Full Code (Latest Code Status on File) Date Activated Date Inactivated Comments 11/30/2024 2:06 AM 12/14/2024 6:30 PM Care Teams Marine Pilot Relationship Specialty Start Date End Date Provider, Not In System [place] PCP - General 12/14/24
--- OUTSIDE RECORDS SUMMARY | 2025-04-27 09:29 | XMS_ITS | Clinical Summary ---
Author Organization [employer] ([place], [place], [place], [place]) Address [address] [address] Care Team Providers Care Commercial Producer Name Role Phone Provider, Not In System [...] your living situation today? [facility] place [facility] 11/30/2024 Think about [...] Do you speak a language other than Kitt[place] at [facility]? No 11/30/2024 Do you want help [...] - 5.6 % 11/30/2024 9:17 AM EDT [facility] Comment: Hemoglobin A1C levels are related to mean glucose during the preceding 2-3 months. Less than 7% demonstrates glycemic control in diabetic patients. Hemoglobin AlC % Suggested Diagnosis > or = 6.5 Diabetic 5.7 - 6.4 Prediabetic <5.7 Non-diabetic eAVG Glucose 93.93 70 - 126 mg/dL 11/30/2024 9:17 AM EDT [facility] Blood Venipuncture / Unknown 11/30/2024 8:20 AM EDT 11/30/2024 9:07 AM EDT Mikhail Hurtado MD LAB BLOOD ORDERABLES Final Resul t [facility] [address] [phone] from Last 3 Months or Most Recently Relevant to Health Maintenance Insurance [facility] ADV [facility] Advance Directives For more information, please contact: [phone] * Full Code (Latest Code Status on File) Date Activated Date Inactivated Comments 11/30/2024 2:06 AM 12/14/2024 6:30 PM Care Teams Commercial Producer Relationship Specialty Start Date End Date Provider, Not In System [place] PCP - General 12/14/24
--- OUTSIDE RECORDS SUMMARY | 2025-04-27 09:29 | XMS_ITS | Encounter Summary ---
Author Organization Healthcare Address [address] [place] [address] Care Team Providers Care Lacquer Machine Feeder Name Role Phone Larry Bedolla MD Primary Care Provider + [phone] Sary Brannon PUMP SERVICER SUPERVISOR Unavailable [phone] Monika Hernandez APRN Primary Care Provider [phone] Reason for Visit * Reason Comments Med Refill Encounter Details Date Type Department Care Team (Late st Contact Info) Description 04/12/2021 [facility] [address] [place] [address] Lina Loew, PUMP SERVICER SUPERVISOR [address] [facility] [address] [place] [address] Social History Tobacco Use Types [...] on filedocumented in this encounter Care Teams Lacquer Machine Feeder Relationship Specialty Start Date End Date Larry Bedolla MD [address] [place], [place] [id number] PCP - General 12/08/20 01/18/25 Monika Hernandez APRN [address] [place] [address] PCP - General 01/19/25 Sary Brannon APRN 1210 [facility] [address] [place] [address] Referring Physician Gastroenterology 01/07/25 documented as of this encounter
--- OUTSIDE RECORDS SUMMARY | 2025-04-27 09:29 | XMS_ITS | Clinical Summary ---
Author Organization [facility] [place] [address] Care Team Providers Care Patent Engineer Name Role Phone Unavailable Primary Care Provider [...]
--- OUTSIDE RECORDS SUMMARY | 2025-04-27 09:29 | XMS_ITS | Encounter Summary ---
Author Organization Healthcare Address [address] [place] [address] Care Team Providers Care Career Agent Name Role Phone Larry Bedolla MD Primary Care Provider + [phone] Sary rBannon APRN Unavailable [phone] Monika Hernandez APRN Primary Care Provider [phone] Encounter Details Date Type Department Care Team (Late st Contact Info) Description 01/21/2022 Community [facility] [address] [place] [address] Larry Bedolla MD [address] [place], [place] [id number] Central stenosis of spinal canal (Primary Dx) [...] documented as of this encounter Care Teams Career Agent Relationship Specialty Start Date End Date Larry Bedolla MD [address] [place] [address] PCP - General 12/08/20 01/18/25 Monika Hernandez APRN [address] [place], [place] [id number] PCP - General 01/19/25 Sary Brannon APRN 1210 [facility] [address] [place] [address] Referring Physician Gastroenterology 01/07/25 documented as of this encounter
--- OUTSIDE RECORDS SUMMARY | 2025-04-27 09:30 | XMS_ITS | Encounter Summary ---
Author Organization Healthcare Address [address] [place] [address] Care Team Providers Care Bander Hand Name Role Phone Larry Bedolla MD Primary Care Provider + [phone] Sary Brannon APRN Unavailable [phone] Monika Hernandez APRN Primary Care Provider + [phone] Encounter Details Date Type Department Care Team (Late st Contact Info) Description 12/10/2024 Orders Only External Location [address] [place] [address] Provider, External Social History Tobacco Use Types [...] documented as of this encounter Care Teams Bander Hand Relationship Specialty Start Date End Date Larry Bedolla MD [address] [place] [address] PCP - General 12/08/20 01/18/25 Monika Hernandez APRN [address] [place] [address] PCP - General 01/19/25 Sary Brannon APRN 1210 [facility] [address] [place] [address] Referring Physician Gastroenterology 01/07/25 documented as of this encounter
--- OUTSIDE RECORDS SUMMARY | 2025-04-27 09:30 | XMS_ITS | Encounter Summary ---
Author Organization Healthcare Address [address] [place] [address] Care Team Providers Care Concrete Boom Pump Operator Name Role Phone Larry Bedolla MD Primary Care Provider + [phone] Sary Brannon APRN Unavailable [phone] Monika Hernandez APRN Primary Care Provider + [phone] Encounter Details Date Type Department Care Team (Late st Contact Info) Description 11/30/2024 Orders Only External Location [address] [place] [address] Provider, External Social History Tobacco Use Types [...] Date End Date Larry Bedolla MD [address] [place] [address] PCP - General 12/08/20 01/18/25 Monika Hernandez APRN [address] [place] [address] PCP - General 01/19/25 Sary Brannon APRN 1210 [facility] [address] [place] [address] Referring Physician Gastroenterology 01/07/25 documented as of this encounter
--- OUTSIDE RECORDS SUMMARY | 2025-04-27 09:30 | XMS_ITS | Encounter Summary ---
Author Organization Healthcare Address [address] [place] [address] Care Team Providers Care Wreath Inspector Name Role Phone Larry Bedolla MD Primary Care Provider + [phone] Sary Brannon APRN Unavailable [phone] Monika Hernandez APRN Primary Care Provider + [phone] Encounter Details Date Type Department Care Team (Late st Contact Info) Description 12/04/2024 Orders Only External Location [address] [place] [address] Provider, External Social History Tobacco Use Types [...] documented as of this encounter Care Teams Wreath Inspector Relationship Specialty Start Date End Date Larry Bedolla MD [address] [place] [address] PCP - General 12/08/20 01/18/25 Monika Hernandez APRN [address] [place] [address] PCP - General 01/19/25 Sary Brannon APRN 1210 [facility] [address] [place] [address] Referring Physician Gastroenterology 01/07/25 documented as of this encounter
--- OUTSIDE RECORDS SUMMARY | 2025-04-27 09:30 | XMS_ITS | Encounter Summary ---
Author Organization Healthcare Address [address] [place] [address] Care Team Providers Care Addictions Counselor Name Role Phone Larry Bedolla MD Primary Care Provider + [phone] Sary Brannon APRN Unavailable [phone] Monika Hernandez APRN Primary Care Provider + [phone] Encounter Details Date Type Department Care Team (Late st Contact Info) Description 04/30/2018 Orders Only External Location [address] [place] [address] Provider, External Social History Tobacco Use Types [...] on filedocumented in this encounter Care Teams Addictions Counselor Relationship Specialty Start Date End Date Larry Bedolla MD [address] [place] [address] PCP - General 12/08/20 01/18/25 Monika Hernandez APRN [address] [place] [address] PCP - General 01/19/25 Sary Brannon APRN 1210 [facility] [address] [place] [address] Referring Physician Gastroenterology 01/07/25 documented as of this encounter
--- OUTSIDE RECORDS SUMMARY | 2025-04-27 09:30 | XMS_ITS | Encounter Summary ---
Author Organization Healthcare Address [address] [place] [address] Care Team Providers Care Assisted Living Executive Director Name Role Phone Larry Bedolla MD Primary Care Provider + [phone] Sary Brannon APRN Unavailable [phone] Monika Hernandez APRN Primary Care Provider + [phone] Encounter Details Date Type Department Care Team (Late st Contact Info) Description 12/07/2024 Orders Only External Location [address] [place] [address] Provider, External Social History Tobacco Use Types [...] documented as of this encounter Care Teams Assisted Living Executive Director Relationship Specialty Start Date End Date Larry Bedolla MD [address] [place] [address] PCP - General 12/08/20 01/18/25 Monika Hernandez APRN [address] [place] [address] PCP - General 01/19/25 Sary Brannon APRN 1210 [facility] [address] [place] [address] Referring Physician Gastroenterology 01/07/25 documented as of this encounter
--- OUTSIDE RECORDS SUMMARY | 2025-04-27 09:30 | XMS_ITS | Encounter Summary ---
Author Organization Healthcare Address [address] [place] [address] Care Team Providers Care Automobile Tire Builder Name Role Phone Larry Bedolla MD Primary Care Provider + [phone] Sary Brannon APRN Unavailable [phone] Monika Hernandez APRN Primary Care Provider + [phone] Encounter Details Date Type Department Care Team (Late st Contact Info) Description 12/10/2024 Orders Only External Location [address] [place] [address] Provider, External Social History Tobacco Use Types [...] documented as of this encounter Care Teams Automobile Tire Builder Relationship Specialty Start Date End Date Larry Bedolla MD [address] [place] [address] PCP - General 12/08/20 01/18/25 Monika Hernandez APRN [address] [place] [address] PCP - General 01/19/25 Sary Brannon APRN 1210 [facility] [address] [place] [address] Referring Physician Gastroenterology 01/07/25 documented as of this encounter
--- OUTSIDE RECORDS SUMMARY | 2025-04-27 09:30 | XMS_ITS | Encounter Summary ---
Author Organization Healthcare Address [address] [place] [address] Care Team Providers Care Community Development Technician Name Role Phone Larry Bedolla MD Primary Care Provider + [phone] Sary Brannon APRN Unavailable [phone] Monika Hernandez APRN Primary Care Provider + [phone] Encounter Details Date Type Department Care Team (Late st Contact Info) Description 12/02/2024 Orders Only External Location [address] [place] [address] Provider, External Social History Tobacco Use Types [...] documented as of this encounter Care Teams Community Development Technician Relationship Specialty Start Date End Date Larry Bedolla MD [address] [place] [address] PCP - General 12/08/20 01/18/25 Monika Hernandez APRN [address] [place] [address] PCP - General 01/19/25 Sary Brannon APRN [address] [place] [address] [address] [place] [address] Referring Physician Gastroenterology 01/07/25 documented as of this encounter
--- OUTSIDE RECORDS SUMMARY | 2025-04-27 09:30 | XMS_ITS | Encounter Summary ---
Author Organization Healthcare Address [address] [place] [address] Care Team Providers Care Assistant Press Operator Name Role Phone Larry Bedolla MD Primary Care Provider + [phone] Sary Brannon APRN Unavailable [phone] Monika Hernandez APRN Primary Care Provider + [phone] Encounter Details Date Type Department Care Team (Late st Contact Info) Description 11/29/2024 Orders Only External Location [address] [place] [address] Provider, External Social History Tobacco Use Types [...] documented as of this encounter Care Teams Assistant Press Operator Relationship Specialty Start Date End Date Larry Bedolla MD [address] [place] [address] PCP - General 12/08/20 01/18/25 Monika Hernandez APRN [address] [place] [address] PCP - General 01/19/25 Sary Brannon APRN [address] [place] [address] [address] [place] [address] Referring Physician Gastroenterology 01/07/25 documented as of this encounter
--- OUTSIDE RECORDS SUMMARY | 2025-04-27 09:30 | XMS_ITS | Encounter Summary ---
Author Organization Healthcare Address [address] [place] [address] Care Team Providers Care Commercial Loan Closer Name Role Phone Larry Bedolla MD Primary Care Provider + [phone] Sary Brannon APRN Unavailable [phone] Monika Hernandez APRN Primary Care Provider + [phone] Encounter Details Date Type Department Care Team (Late st Contact Info) Description 11/30/2024 Orders Only External Location [address] [place] [address] Provider, External Social History Tobacco Use Types [...] documented as of this encounter Care Teams Commercial Loan Closer Relationship Specialty Start Date End Date Larry Bedolla MD [address] [place] [address] PCP - General 12/08/20 01/18/25 Monika Hernandez APRN [address] [place] [address] PCP - General 01/19/25 Sary Brannon APRN 1210 [facility] [address] [place] [address] Referring Physician Gastroenterology 01/07/25 documented as of this encounter
--- OUTSIDE RECORDS SUMMARY | 2025-04-27 09:30 | XMS_ITS | Encounter Summary ---
Author Organization Healthcare Address [address] [place] [address] Care Team Providers Care Oracle Fusion Middleware Architect Name Role Phone Larry Bedolla MD Primary Care Provider + [phone] Sary Brannon APRN Unavailable [phone] Monika Hernandez APRN Primary Care Provider + [phone] Encounter Details Date Type Department Care Team (Late st Contact Info) Description 12/06/2024 Orders Only External Location [address] [place] [address] Provider, External Social History Tobacco Use Types [...] documented as of this encounter Care Teams Oracle Fusion Middleware Architect Relationship Specialty Start Date End Date Larry Bedolla MD [address] [place] [address] PCP - General 12/08/20 01/18/25 Monika Hernandez APRN [address] [place] [address] PCP - General 01/19/25 Sary Brannon APRN 1210 [facility] [address] [place] [address] Referring Physician Gastroenterology 01/07/25 documented as of this encounter
--- OUTSIDE RECORDS SUMMARY | 2025-04-27 09:30 | XMS_ITS | Encounter Summary ---
Author Organization Healthcare Address [address] [place] [address] Care Team Providers Care Manager Culture Name Role Phone Larry Bedolla MD Primary Care Provider + [phone] Sary Brannon APRN Unavailable [phone] Monika Hernandez APRN Primary Care Provider + [phone] Encounter Details Date Type Department Care Team (Late st Contact Info) Description 12/03/2024 Orders Only External Location [address] [place] [address] Provider, External Social History Tobacco Use Types [...] as of this encounter Care Teams Manager Culture Relationship Specialty Start Date End Date Larry Bedolla MD [address] [place] [address] PCP - General 12/08/20 01/18/25 Monika Hernandez APRN [address] [place] [address] PCP - General 01/19/25 Sary Brannon APRN 1210 [facility] [address] [place] [address] Referring Physician Gastroenterology 01/07/25 documented as of this encounter
--- OUTSIDE RECORDS SUMMARY | 2025-04-27 09:30 | XMS_ITS | Encounter Summary ---
Author Organization Healthcare Address [address] [place] [address] Care Team Providers Care Chief Client Officer Name Role Phone Larry Bedolla MD Primary Care Provider + [phone] Sary Brannon APRN Unavailable [phone] Monika Hernandez APRN Primary Care Provider + [phone] Encounter Details Date Type Department Care Team (Late st Contact Info) Description 11/30/2024 Orders Only External Location [address] [place] [address] Provider, External Social History Tobacco Use Types [...] documented as of this encounter Care Teams Chief Client Officer Relationship Specialty Start Date End Date Larry Bedolla MD [address] [place] [address] PCP - General 12/08/20 01/18/25 Monika Hernandez APRN [address] [place] [address] PCP - General 01/19/[address] [facility] [address] [place] [address] Referring Physician Gastroenterology 01/07/25 documented as of this encounter
--- OUTSIDE RECORDS SUMMARY | 2025-04-27 09:30 | XMS_ITS | Encounter Summary ---
Author Organization Healthcare Address [address] [place] [address] Care Team Providers Care Cylinder Press Operator Name Role Phone Larry Bedolla MD Primary Care Provider + [phone] Sary Brannon APRN Unavailable [phone] Monika Hernandez APRN Primary Care Provider [phone] Encounter Details Date Type Department Care Team (Late st Contact Info) Description 12/31/2024 Orders Only External Location [address] [place] [address] Monika Hernandez APRN [address] [place], [place] [id number] Social History Tobacco Use Types Packs/Day Years [...] 12/31/2024 7:33 AM EDT Monika Hernandez APRN [facility] [place] Final Result documented in this encounter Visit Diagnoses Not on filedocumented in this encounter Additional Health Concerns Assessment Noted Time A fall risk assessment has been complete d for the patient 01/02/2022 1:17 PM EDT A Body Mass Index follow-up plan has been documented for the patient 11/13/2022 11:41 AM EDT documented as of this encounter Care Teams Cylinder Press Operator Relationship Specialty Start Date End Date Larry Bedolla MD [address] [place] [address] PCP - General 12/08/20 01/18/25 Monika Hernandez APRN [address] [place] [address] PCP - General 01/19/25 Sary Brannon APRN [address] [facility] [address] [place] [address] Referring Physician Gastroenterology 01/07/25 documented as of this encounter
--- OUTSIDE RECORDS SUMMARY | 2025-04-27 09:30 | XMS_ITS ---
Author Organization Healthcare Address [address] [place] [address] Care Team Providers Care Grinder Set Up Operator Centerless Name Role Phone Sary Brannon APRN Unavailable [phone] Monika Hernandez APRN Primary Care Provider [phone] Transplant Episode Liver Candidate [facility] ([place], [place]) - JOSÉ LUIS Referred on 01/07/2025 Marked as Active on 01/07/2025 Liver CoordinatorMoraima Centeno RN Fax: N/A Email: N/A Scores Score Value Updated Expires Exceptions/Saloni sons CPRA Not available MELD (Calc) 22 02/22/2025 Care Team Name Role Phone Fax Email Moraima Centeno RN Liver Coordinator [phone] N/A N/A Sary Brannon APRN Referring Physician [phone] N/A [employer] Salesperson [phone] N/A N/A Edil Kiran MD Surgeon [phone] N/A Events Pre-Transplant Referred: 01/07/2025 Committee: 02/28/2025
--- OUTSIDE RECORDS SUMMARY | 2025-04-27 09:30 | XMS_ITS | Encounter Summary ---
Author Organization Healthcare Address [address] [place] [address] Care Team Providers Care Supervisor Curing Room Name Role Phone Larry Bedolla MD Primary Care Provider + [phone] Sary Brannon APRN Unavailable [phone] Monika Hernandez APRN Primary Care Provider + [phone] Encounter Details Date Type Department Care Team (Late st Contact Info) Description 12/09/2024 Orders Only External Location [address] [place] [address] Provider, External Social History Tobacco Use Types [...] documented as of this encounter Care Teams Supervisor Curing Room Relationship Specialty Start Date End Date Larry Bedolla MD [address] [place] [address] PCP - General 12/08/20 01/18/25 Monika Hernandez APRN [address] [place] [address] PCP - General 01/19/25 Sary Brannon APRN 1210 [facility] [address] [place] [address] Referring Physician Gastroenterology 01/07/25 documented as of this encounter
--- OUTSIDE RECORDS SUMMARY | 2025-04-27 09:30 | XMS_ITS | Clinical Summary ---
[facility] [address] [place] [address] Care Team Providers Care Filament Welder Name Role Phone Sherri Adkins APRN Primary [...] VACCINE 02/25/2025 Insurance [employer] Care Teams Filament Welder Relationship Specialty Start Date End Date Sherri Adkins APRN [address] [place] [address] PCP - General Family Medicine 03/12/16
--- OUTSIDE RECORDS SUMMARY | 2025-04-27 09:30 | XMS_ITS | Encounter Summary ---
Author Organization Healthcare Address [address] [place] [address] Care Team Providers Care Principal Technical Specialist Name Role Phone Larry Bedolla MD Primary Care Provider + [phone] Sary Brannon MAIL SORTER AND DELIVERY Unavailable [phone] Monika Hernandez APRN Primary Care Provider [phone] Encounter Details Date Type Department Care Team (Late st Contact Info) Description 01/03/2025 Community [facility] [address] [place] [address] Sary Brannon, MAIL SORTER AND DELIVERY [address] [place], [place] [id number] Social History Tobacco Use Types Packs/Day Years [...] documented as of this encounter Care Teams Principal Technical Specialist Relationship Specialty Start Date End Date Larry Bedolla MD [address] [place] [address] PCP - General 12/08/20 01/18/25 Monika Henrandez APRN [address] [place] [address] PCP - General 01/19/25 Sary Brannon APRN [address] [place] [address] Referring Physician Gastroenterology 01/07/25 documented as of this encounter
--- OUTSIDE RECORDS SUMMARY | 2025-04-27 09:30 | XMS_ITS | Encounter Summary ---
Author Organization Healthcare Address [address] [place] [address] Care Team Providers Care Shot Coat Tender Name Role Phone Larry Bedolla MD Primary Care Provider + [phone] Sary Brannon APRN Unavailable [phone] Monika Hernandez APRN Primary Care Provider [phone] Encounter Details Date Type Department Care Team (Late st Contact Info) Description 10/26/2024 Orders Only External Location [address] [place] [address] Provider, External Social History Tobacco Use Types [...] documented as of this encounter Care Teams Shot Coat Tender Relationship Specialty Start Date End Date Larry Bedolla MD [address] [place] [address] PCP - General 12/08/20 01/18/25 Monika Hernandez APRN [address] [place] [address] PCP - General 01/19/25 Sary Brannon APRN 1210 [facility] [address] [place] [address] Referring Physician Gastroenterology 01/07/25 documented as of this encounter
--- OUTSIDE RECORDS SUMMARY | 2025-04-27 09:30 | XMS_ITS | Encounter Summary ---
Author Organization Healthcare Address [address] [place] [address] Care Team Providers Care Critical Care Physician Assistant Name Role Phone Sary Brannon CERTIFIED REHABILITATION COUNSELOR Unavailable [phone] Carlos Hernandezica ÁNGEL Primary Care Provider + [phone] Encounter Details Date Type Department Care Team (Late st Contact Info) Description 04/14/2025 Telephone [facility] Transplant Center [address] [facility] [address] [place] [id number] Varun Bass Social History Tobacco Use Types [...] me a call back to r/s at [phone]. documented in this encounter Plan of Treatment [...] documented as of this encounter Care Teams Critical Care Physician Assistant Relationship Specialty Start Date End Date Monika Hernandez APRN [address] [place] [address] PCP - General 01/19/25 Sary Brannon APRN [facility] [address] [place] [address] Referring Physician Gastroenterology 01/07/25 documented as of this encounter
--- OUTSIDE RECORDS SUMMARY | 2025-04-27 09:30 | XMS_ITS | Encounter Summary ---
Author Organization Healthcare Address [address] [place] [address] Care Team Providers Care Chamfering Machine Operator Name Role Phone Larry Bedolla MD Primary Care Provider + [phone] Sary Brannon APRN Unavailable [phone] Monika Hernandez APRN Primary Care Provider + [phone] Encounter Details Date Type Department Care Team (Late st Contact Info) Description 11/30/2024 Orders Only External Location [address] [place] [address] Provider, External Social History Tobacco Use Types [...] documented as of this encounter Care Teams Chamfering Machine Operator Relationship Specialty Start Date End Date Larry Bedolla MD [address] [place] [address] PCP - General 12/08/20 01/18/25 Monika Hernandez APRN [address] [place] [address] PCP - General 01/19/25 Sary Brannon APRN [address] [place] [address] Referring Physician Gastroenterology 01/07/25 documented as of this encounter
--- OUTSIDE RECORDS SUMMARY | 2025-04-27 09:30 | XMS_ITS | Encounter Summary ---
Author Organization Healthcare Address [address] [place] [address] Care Team Providers Care Doctor'S Assistant Name Role Phone Larry Bedolla MD Primary Care Provider + [phone] Sary Brannon APRN Unavailable [phone] Monika Hernandez APRN Primary Care Provider [phone] Encounter Details Date Type Department Care Team (Late st Contact Info) Description 04/02/2017 Orders Only External Location [address] [place] [address] Provider, External Social History Tobacco Use Types [...] on filedocumented in this encounter Care Teams Doctor'S Assistant Relationship Specialty Start Date End Date Larry Bedolla MD [address] [place] [address] PCP - General 12/08/20 01/18/25 Monika Hernandez APRN [address] [place] [address] PCP - General 01/19/25 Sary Brannon APRN 1210 [facility] [address] [place] [address] Referring Physician Gastroenterology 01/07/25 documented as of this encounter
--- OUTSIDE RECORDS SUMMARY | 2025-04-27 09:30 | XMS_ITS | Clinical Summary ---
Author Organization Healthcare Address [address] [place] [address] Care Team Providers Care Cargo Handler Name Role Phone Sary Brannon SUPERVISOR BOAT OUTFITTING Unavailable [phone] Monika Hernandze APRN Primary Care Provider [phone] Allergies No known active allergies Medications bisoprolol [...] 3 INJECTIONS DAILY 11/11/19 Active HYDROcodone-acetam inophen ([place]) 10-325 MG tablet 10/24/19 Active spironolactone (Aldactone) 25 MG tablet Take 0.5 tablets by mouth daily. 10/03/19 Active furosemide (Lasix) 40 MG tablet Take by mouth 2 (two) times a day. 10/03/19 Active Insulin Lispro (HUMALOG IJ) Inject as directed. Active dapagliflozin (Farxiga) 5 MG tabletIndications: CKD (chronic kidney disease) stage 2, GFR 60-89 ml/min,Microalbumi ruperto,Coronary artery disease involving [place] heart with angina pectoris and documented spasm, unspecified vessel or lesion type Take 1 tablet (5 mg total) by [...] Take 1 tablet by mouth nightly. 02/04/20 25 Active bumetanide (Bumex) 2 MG tablet Take 1 tablet by mouth daily. Active gabapentin (Neurontin) 100 MG capsule Take 1 capsule by mouth 3 times a day. 02/17/20 25 Active NovoLIN R 100 UNIT/ML injection vial Inject 5 Units under the skin as needed. Active lactulose (Enulose) 10 GM/15ML solution oral solution Take 15 mL by mouth twice a day. 12/07/19 25 Active metOLazone (Zaroxolyn) 2.5 MG tablet Take 1 tablet by mouth daily. 12/15/19 25 Active pantoprazole (Protonix) 40 MG EC tablet Take 1 tablet by mouth 2 times a day. 02/16/20 Active Xifaxan 550 MG tablet Take 1 tablet by mouth 2 times a day. 12/07/19 25 Active tamsulosin (Flomax) 0.4 MG 24 hr capsule Take 1 capsule by mouth nightly. 02/16/20 25 Active ferrous sulfate 324 (65 Fe) MG EC tablet Take 1 tablet by mouth daily with breakfast. Do not crush, chew, or split. Active albuterol 108 (90 Base) MCG/ACT inhaler as needed. Active psyllium (Metamucil Smooth Texture) 58.6 % powder Take 1 packet by mouth daily. 1040 g 02/23/20 25 Active Aspirin Low Dose 81 MG EC tablet Take 1 tablet by mouth daily. 30 tablet 1 02/23/20 25 025 Active Problems Problem Noted Date Diagnosed Date DDD (degenerative disc disease), lumbar 10/14/19 19 Leg pain 10/13/2018 Vitamin D deficiency 09/03/2018 JEANA positive 08/05/2017 DJD (degenerative joint disease), lumbar 018 Low back pain 08/05/2017 Sleep disturbance 08/05/2017 CAD (coronary artery disease) 02/07/2016 Peripheral neuropathy 01/05/2015 Depression 10/22/2014 Hyperlipidemia 10/22/2014 Hypertension 10/22/2014 Insulin dependent type 2 diabetes mellitus 10/22 Obesity 10/22/2014 CKD (chronic kidney disease) 10/10/2014 Resolved Problems Problem Noted Date Diagnosed Date Resolved Date Viral gastroenteritis 08/28/20162024 Gastroenteritis 08/30/2015 04/17/2025 Arthritis 10/22/2014 04/17/2025 Encounters Date Type Department Care Team Description 04/14/2025 Telephone [facility] Transplant Center [address] [place] [address] Varun Bass 02/22/2025 9:20 AM EDT Office Visit [facility] Transplant [place] [address] [place] [address] Ollie Calvo MD End-stage liver disease (CMS/HCC) (Primary Dx); 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 Comment: Nonreactive. Individual is considered not immune to HBV infection. Blood Venous blood specimen / Unknown Venipuncture / Unknown 02/22/2025 7:18 AM EDT 02/22/2025 7:48 AM EDT Edil Kiran MD LAB BLOOD ORDERABLES Final Resul t [facility] [address] [place] [address] * Alpha fetoprotein, serum (02/22/2025 7:18 AM EDT) Alpha Fetoprotein, Serum <2.3 <10.0 ng/mL 02/22/2025 8:25 AM EDT [facility] Blood Venous blood specimen / Unknown Venipuncture / Unknown 02/22/2025 7:18 AM EDT 02/22/2025 7:48 AM EDT Narrative [facility] - 02/22/2025 8:25 AM EDT Performed by Stone electrochemiluminescent immunoassay which is traceable to the 1st AFP IRP WHO Reference standard 72/255. Results obtained with different test methods or kits cannot be used interchangeably. us Edil Kiran MD LAB BLOOD ORDERABLES Final Resul t Performing Organization Address City[facility]/ZIP Co de Phone Number [facility] [address] [place] [address] * (ABNORMAL) Hepatitis A Antibody IgG (02/22/2025 7:18 AM EDT) Hepatitis A Antibody IgG Positive(A ) Negative 02/22/2025 8:44 AM EDT [facility] Blood Venous blood specimen / Unknown Venipuncture / Unknown 02/22/2025 7:18 AM EDT 02/22/2025 7:48 AM EDT Edil Kiran MD LAB BLOOD ORDERABLES Final Resul t Performing Organization Address [facility] Co de Phone Number [facility] [address] [place] [address] * Hepatitis C Antibody (02/22/2025 7:18 AM EDT) Hepatitis C Antibody Negative Negative 02/22/2025 8:29 AM EDT [facility] Blood Venous blood specimen / Unknown Venipuncture / Unknown 02/22/2025 7:18 AM EDT 02/22/2025 7:48 AM EDT Edil Kiran MD LAB BLOOD ORDERABLES Final Resul t Performing Organization Address [facility] Co de Phone Number [facility] [address] [place] [address] * Nicotine Cotinine Metabolite (02/22/2025 7:18 AM EDT) NICOTINE <5 <5 ng/mL 02/24/2025 2:3 4 PM EDT [facility] Cotinine <5 <5 ng/mL 02/24/2025 2:3 4 PM EDT [facility] Blood Venous blood specimen / Unknown Venipuncture / Unknown 02/22/2025 7:18 AM EDT 02/22/2025 7:46 AM EDT Narrative [facility] - 02/24/2025 2:34 PM EDT Testing performed by LC-MS/MS at the [facility]. This test was developed and its performance characteristics determined by [facility]. This assay has not been cleared by the FDA. The laboratory is regulated under CLIA as qualified to perform high-complexity testing. This test is used for clinical purposes. us Edil Kiran MD LAB BLOOD ORDERABLES Final Resul t Performing Organization Address [facility] Co de Phone Number [facility] [address] [place] [address] * ABO/Rh (02/22/2025 7:18 AM EDT) ABO/Rh O Positive 02/22/2025 7:14 AM EDT [facility] Blood Venous blood specimen / Unknown Venipuncture / Unknown 02/22/2025 7:18 AM EDT 02/22/2025 7:46 AM EDT Edil Kiran MD LAB BLOOD BANK TEST ORDERABLES F inal Result Performing Organization Address [facility] de Phone Number BLOOD BANK [address] [place] [address], * Hepatitis B Surface Antigen (02/22/2025 7:18 AM EDT) Hepatitis B Surf Antigen Negative Negative 02/22/2025 8:44 AM EDT [facility] Blood Venous blood specimen / Unknown Venipuncture / Unknown 02/22/2025 7:18 AM EDT 02/22/2025 7:48 AM EDT Edil Kiran MD LAB BLOOD ORDERABLES Final Resul t Performing Organization Address [facility] Co de Phone Number [facility] [address] [place] [address] * (ABNORMAL) Protime-INR (02/22/2025 7:18 AM EDT) Prothrombin Time 18.7(H) 12.0 - 14.3 sec LAB COAGULATION METHOD 02/22/2025 8:04 AM EDT [facility] INR 1.6(H) 0.9 - 1.1 LAB COAGULATION METHOD 02/22/2025 8:04 AM EDT [facility] Blood Venous blood specimen / Unknown Venipuncture / Unknown 02/22/2025 7:18 AM EDT 02/22/2025 7:46 AM EDT Narrative [facility] - 02/22/2025 8:04 AM EDT OPTIMAL INR RANGES FOR PATIENT ON ORAL ANTICOAGULANT THERAPY Prevention of venous thromboembolism INR 2.0 to 3.0 In patients with heart disease: Atrial fibrillation INR 2.0 to 3.0 Valvular heart disease INR 2.0 to 3.0 Tissue heart valves INR 2.0 to 3.0 Mechanical prosthetic valves INR 2.5 to 3.5 Prevention of recurrent IL INR 2.5 to 3.5 us Edil Kiran MD LAB BLOOD ORDERABLES Final Resul t [facility] [address] [place] [address] * (ABNORMAL) Hemogram (CBC) (02/22/2025 7:18 AM EDT) [facility] WBC Count 2.35(L) 3.70 - 10.30 10*3/uL LAB HEMATOLOGY METHOD 02/22/2025 9:33 AM EDT [facility] RBC Count 3.33(L) 3.90 - 5.20 10*6/uL LAB HEMATOLOGY METHOD 02/22/2025 9:33 AM EDT [facility] HGB 10.2(L) 11.2 - 15.7 g/dL LAB HEMATOLOGY METHOD 02/22/2025 9:33 AM EDT [facility] HCT 31.8(L) 34.0 - 45.0 % LAB HEMATOLOGY METHOD 02/22/2025 9:33 AM EDT [facility] Platelet Count 75(L) 155 - 369 10*3/uL LAB HEMATOLOGY METHOD 02/22/2025 9:33 AM EDT [facility] MCV 96 79 - 98 fL LAB HEMATOLOGY METHOD 02/22/2025 9:33 AM EDT [facility] MCH 30.6 26.0 - 32.0 pg LAB HEMATOLOGY METHOD 02/22/2025 9:33 AM EDT [facility] MCHC 32.1 30.7 - 35.5 g/dL LAB HEMATOLOGY METHOD 02/22/2025 9:33 AM EDT [facility] RDW 15.7(H) 11.5 - 14.5 % LAB HEMATOLOGY METHOD 02/22/2025 9:33 AM EDT [facility] MPV 10.5 8.8 - 12.5 fL LAB HEMATOLOGY METHOD 02/22/2025 9:33 AM EDT [facility] nRBC 0.0 <=0.0 per 100 WBCs LAB HEMATOLOGY METHOD 02/22/2025 9:33 AM EDT [facility] Blood Venous blood specimen / Unknown Venipuncture / Unknown 02/22/2025 7:18 AM EDT 02/22/2025 7:41 AM EDT us Edil Kiran MD LAB BLOOD ORDERABLES Final Resul t [facility] [address] [place] [address] * (ABNORMAL) Comprehensive metabolic panel (02/22/2025 7:18 AM EDT) Glucose, Plasma 283(H) 74 - 99 mg/dL 02/22/2025 8:16 AM EDT [facility] BUN, Plasma 30(H) 8 - 23 mg/dL 02/22/2025 8:16 AM EDT [facility] Creatinine, Plasma 2.54(H) 0.60 - 1.10 mg/dL 02/22/2025 8:16 AM EDT [facility] BUN/Creatinine Ratio 12 02/22/2025 8:16 AM EDT [facility] Sodium, Plasma 137 136 - 145 mmol/L 02/22/2025 8:16 AM EDT [facility] Potassium, Plasma 4.3 3.6 - 4.9 mmol/L 02/22/2025 8:16 AM EDT [facility] Chloride, Plasma 105 97 - 107 mmol/L 02/22/2025 8:16 AM EDT [facility] CO2, Plasma 24 22 - 29 mmol/L 02/22/2025 8:16 AM EDT [facility] Anion Gap 8 6 - 16 mmol/L 02/22/2025 8:16 AM EDT [facility] Total Calcium, Plasma 8.6(L) 8.9 - 10.2 mg/dL 02/22/2025 8:16 AM EDT [facility] Total Protein 7.2 6.3 - 7.9 g/dL 02/22/2025 8:16 AM EDT [facility] Albumin, Plasma 2.9(L) 3.5 - 5.2 g/dL 02/22/2025 8:16 AM EDT [facility] AST, Plasma 37(H) 10 - 35 U/L 02/22/2025 8:16 AM EDT [facility] ALT, Plasma 15 10 - 35 U/L 02/22/2025 8:16 AM EDT [facility] Alkaline Phosphatase, Plasma 121 46 - 142 U/L 02/22/2025 8:16 AM EDT [facility] Total Bilirubin, Plasma 0.9 0.2 - 1.1 mg/dL 02/22/2025 8:16 AM EDT [facility] eGFRcr 20.9 mL/min/1.7 3m*2 02/22/2025 8:16 AM EDT [facility] Comment:Reported eGFRcr in m L/min/1.73m2 is based the CKD-EPI 2020 equation that does not use a race coefficient. Blood Venous blood specimen / Unknown Venipuncture / Unknown 02/22/2025 7:18 AM EDT 02/22/2025 7:47 AM EDT us Edil Kiran MD LAB BLOOD ORDERABLES Final Resul t [facility] [address] [place] [address] * (ABNORMAL) Hemoglobin A1c (01/24/2016 1:47 PM [...] EDT 01/24/2016 6:17 PM EDT Sherri Adkins SUPERVISOR BOAT OUTFITTING LAB BLOOD ORDERABLES Final Result SUNQUEST from Last 3 Months or Most Recently Relevant to Health Maintenance Insurance [employer] Care Teams Cargo Handler Relationship Specialty Start Date End Date Monika Hernandez APRN [address] [place] [address] PCP - General 01/19/25 Sary Brannon APRN [address] [facility] [address] [place] [address] Referring Physician Gastroenterology 01/07/25
--- NOTE | 2025-04-27 10:00 | US_ITS ---
FINAL REPORT CLINICAL HISTORY: R18.8 - Other ascites -- PARACENTESIS -- SARANYA VALDIVIA -- [id number] FINDINGS: ULTRASOUND-GUIDED PARACENTESIS HISTORY:Ascites ATTENDING PHYSICIAN: Dr. Keenan PHYSICIAN ANALYTICAL SCIENTIST: Saranya Velasco PA-C FINDINGS: After informed consent was obtained and timeout procedure performed, fluid was localized in the left lower quadrant under ultrasound guidance and marked on the skin appropriately. The patient was then prepped and draped in the usual sterile fashion and the skin was anesthetized with 1% lidocaine. An ultrasound guided paracentesis was then performed using a Turkel needle. Approximately 7.5 liters of fluid was removed. No fluid was sent to lab. The patient tolerated the procedure well and there were no immediate complications. IMPRESSION: Ultrasound guided left lower quadrant paracentesis as discussed above. Reviewed, Interpreted and Dictated by Dre Keenan MD Transcribed by [employer] Authenticated and [facility]
[2025-04-27 10:25] LABS: Creatinine,Serum 2.00 mg/dl (0.52-1.04); Estimated Glomerular Filt Rate 25 ml/min (>60); GFR (African American) 30 ML/MIN (>60)
[2025-04-27 11:04] VITALS: BP 154/76; PULSE 89; RESP 17; O2SAT 100
[2025-04-27] MEDS: ALBUMIN HUMAN 12.5 GM/50 ML BAG IV ×5 (11:04→13:08)
[2025-04-27 11:33] VITALS: BP 153/83; PULSE 83; RESP 16
[2025-04-27 12:06] VITALS: BP 125/62; PULSE 86; RESP 16
[2025-04-27 12:37] VITALS: BP 151/78; PULSE 77; RESP 15
[2025-04-27 13:08] VITALS: BP 155/75; PULSE 80; RESP 15
[2025-04-27 13:40] VITALS: BP 147/78; PULSE 87; RESP 16; O2SAT 100
== END 2025-04-27 23:59 | disposition home or self-care (01) ==
LOC: RAD 09:28 → INF 10:50
PROVIDERS: PCP Family Medicine; Visit Provider Nurse Practitioner Family
DX: K76.7 Hepatorenal syndrome (principal); K74.00 Hepatic fibrosis, unspecified; K75.81 Nonalcoholic steatohepatitis (NASH)
CPT/HCPCS: 49083; 82565; 96365; 96366; P9047

== ENCOUNTER 2025-04-29 08:44 | Outpatient (CLI) | payer MEDICARE, MEDICAID, SELFPAY ==
--- OUTSIDE RECORDS SUMMARY | 2025-04-29 08:49 | XMS_ITS | Referral Summary ---
Author Organization [employer] ([place], [place], [place], [place]) Address [address] [place] [address] Care Team Providers Care Employment Director Name Role Phone Provider, Not In System [...] your living situation today? I have a [facility] place to live 11/30/2024 Think about [...] Do you speak a language other than Welsh at [facility]? No 11/30/2024 Do you want help with [...] 11/30/2024 9:17 AM EDT [facility] Comment: Hemoglobin A1C levels are related to mean glucose during the preceding 2-3 months. Less than 7% demonstrates glycemic control in diabetic patients. Hemoglobin AlC % Suggested Diagnosis > or = 6.5 Diabetic 5.7 - 6.4 Prediabetic <5.7 Non-diabetic eAVG Glucose 93.93 70 - 126 mg/dL 11/30/2024 9:17 AM EDT [facility] Blood Venipuncture / Unknown 11/30/2024 8:20 AM EDT 11/30/2024 9:07 AM EDT us Mikhail Hurtado MD LAB BLOOD ORDERABLES Final Resul t [facility] [address] [place] [address], [facility] [phone] from Last 3 Months or Most Recently Relevant to Health Maintenance Insurance [facility] Advance Directives For more information, please contact: [phone] * Full Code (Latest Code Status on File) Date Activated Date Inactivated Comments 11/30/2024 2:06 AM 12/14/2024 6:30 PM Care Teams Employment Director Relationship Specialty Start Date End Date Provider, Not In System [place] PCP - General 12/14/24
--- OUTSIDE RECORDS SUMMARY | 2025-04-29 08:49 | XMS_ITS | Encounter Summary ---
Author Organization Healthcare Address [address] [place] [address] Care Team Providers Care Operational Communication Chief Name Role Phone Larry Bedolla MD Primary Care Provider + [phone] Sary Brannon APRN Unavailable +[phone] Monika Hernandez APRN Primary Care Provider + [phone] Reason for Visit * Reason Comments Med Refill Encounter Details Date Type Department Care Team (Late st Contact Info) Description 10/20/2023 Refill [facility] [address] [place] [address] Luis Campo MD [address] [address] CKD (chronic kidney disease) stage 2, GFR 60-89 ml/min; Microalbuminuria; Coronary artery disease involving [place] heart with angina pectoris and documented [...] (mild) Microalbuminuria Proteinuria Coronary artery disease involving [place] heart with angina pectoris and documented spasm, unspecified vessel or lesion type documented in this encounter Additional Health Concerns Assessment Noted Time A fall risk assessment has been complete d for the patient 01/02/2022 1:17 PM EDT A Body Mass Index follow-up plan has been documented for the patient 11/13/2022 11:41 AM EDT documented as of this encounter Care Teams Operational Communication Chief Relationship Specialty Start Date End Date Larry Bedolla MD [address] [place], [place] [id number] PCP - General 12/08/20 01/18/25 Monika Hernandez APRN [address] [place], [place] [id number] PCP - General 01/19/25 Sary Brannon APRN [facility] [address] [place], [place] [address] Referring Physician Gastroenterology 01/07/25 documented as of this encounter
--- OUTSIDE RECORDS SUMMARY | 2025-04-29 08:50 | XMS_ITS | Encounter Summary ---
Author Organization Healthcare Address [address] [place] [address] Care Team Providers Care Airborne Operations Manager Name Role Phone Larry Bedolla MD Primary Care Provider + [phone] Sary Brannon APRN Unavailable +[phone] Monika Hernandez APRN Primary Care Provider + [phone] Encounter Details Date Type Department Care Team (Late st Contact Info) Description 04/02/2017 Orders Only External Location [address] [place] [address] Provider, External Social History Tobacco Use Types [...] on filedocumented in this encounter Care Teams Airborne Operations Manager Relationship Specialty Start Date End Date Larry Bedolla MD [address] [place] [address] PCP - General 12/08/20 01/18/25 Monika Hernandez APRN [address] [place] [address] PCP - General 01/19/[address] [facility] [address] [place] [address] Referring Physician Gastroenterology 01/07/25 documented as of this encounter
--- OUTSIDE RECORDS SUMMARY | 2025-04-29 08:50 | XMS_ITS | Encounter Summary ---
Author Organization Healthcare Address [address] [place] [address] Care Team Providers Care Carpenter Ship Name Role Phone Larry Bedolla MD Primary Care Provider + [phone] Sary Brannon APRN Unavailable [phone] Monika Hernandez APRN Primary Care Provider + [phone] Encounter Details Date Type Department Care Team (Late st Contact Info) Description 04/30/2018 Orders Only External Location [address] [place] [address] Provider, External Social History Tobacco Use Types [...] on filedocumented in this encounter Care Teams Carpenter Ship Relationship Specialty Start Date End Date Larry Bedolla MD [address] [place] [address] PCP - General 12/08/20 01/18/25 Monika Hernandez APRN [address] [place] [address] PCP - General 01/19/25 Sary Brannon APRN 1210 [facility] [address] [place] [address] Referring Physician Gastroenterology 01/07/25 documented as of this encounter
--- OUTSIDE RECORDS SUMMARY | 2025-04-29 08:50 | XMS_ITS | Clinical Summary ---
Author Organization [employer] ([place], [place], [place], [place]) Address [address] [place] [address] Care Team Providers Care Mushroom Sorter Grader Name Role Phone Provider, Not In System [...] your living situation today? I have a [facility] place to live 11/30/2024 Think about the [...] speak a language other than Fijian at [facility]? No 11/30/2024 Do you want help [...] 1-dose series) 2022 Medicare IPPE (Welcome to [place]) [id number] 07/28/2024 COVID-19 VACCINE ( season) [...] - 5.6 % 11/30/2024 9:17 AM EDT [facility] Comment: Hemoglobin A1C levels are related to mean glucose during the preceding 2-3 months. Less than 7% demonstrates glycemic control in diabetic patients. Hemoglobin AlC % Suggested Diagnosis > or = 6.5 Diabetic 5.7 - 6.4 Prediabetic <5.7 Non-diabetic eAVG Glucose 93.93 70 - 126 mg/dL 11/30/2024 9:17 AM EDT [facility] Blood Venipuncture / Unknown 11/30/2024 8:20 AM EDT 11/30/2024 9:07 AM EDT Mikhail Hurtado MD LAB BLOOD ORDERABLES Final Resul t [facility] [address] [phone] from Last 3 Months or Most Recently Relevant to Health Maintenance Insurance [facility] AD[facility] Advance Directives For more information, please contact: [phone] * Full Code (Latest Code Status on File) Date Activated Date Inactivated Comments 11/30/2024 2:06 AM 12/14/2024 6:30 PM Care Teams Mushroom Sorter Grader Relationship Specialty Start Date End Date Provider, Not In System [place] PCP - General 12/14/24
--- OUTSIDE RECORDS SUMMARY | 2025-04-29 08:50 | XMS_ITS | Encounter Summary ---
Author Organization Healthcare Address [address] [place] [address] Care Team Providers Care Varsity Baseball Coach Name Role Phone Larry Bedolla MD Primary Care Provider + [phone] Sary Brannon WOOD MODEL BUILDER Unavailable [phone] Monika Hernandez APRN Primary Care Provider [phone] Reason for Visit * Reason Comments Med Refill Encounter Details Date Type Department Care Team (Late st Contact Info) Description 04/12/2021 [facility] [address] [place] [address] Lina Lowe, WOOD MODEL BUILDER [address] [facility] [address] [place] [address] Social History Tobacco Use Types [...] on filedocumented in this encounter Care Teams Varsity Baseball Coach Relationship Specialty Start Date End Date Larry Bedolla MD [address] [place], [place] [id number] PCP - General 12/08/20 01/18/25 Monika Hernandez APRN [address] [place] [address] PCP - General 01/19/25 Sary Brannon APRN 1210 [facility] [address] [place] [address] Referring Physician Gastroenterology 01/07/25 documented as of this encounter
--- OUTSIDE RECORDS SUMMARY | 2025-04-29 08:50 | XMS_ITS | Encounter Summary ---
Author Organization Healthcare Address [address] [place] [address] Care Team Providers Care Planning Official Name Role Phone Larry Bedolla MD Primary Care Provider + [phone] Sary Brannon APRN Unavailable [phone] Monika Hernandez APRN Primary Care Provider + [phone] Encounter Details Date Type Department Care Team (Late st Contact Info) Description 12/03/2024 Orders Only External Location [address] [place] [address] Provider, External Social History Tobacco Use Types [...] documented as of this encounter Care Teams Planning Official Relationship Specialty Start Date End Date Larry Bedolla MD [address] [place] [address] PCP - General 12/08/20 01/18/25 Monika Hernandez APRN [address] [place] [address] PCP - General 01/19/25 Sary Brannon APRN 1210 [facility] [address] [place] [address] Referring Physician Gastroenterology 01/07/25 documented as of this encounter
--- OUTSIDE RECORDS SUMMARY | 2025-04-29 08:50 | XMS_ITS | Encounter Summary ---
Author Organization Healthcare Address [address] [place] [address] Care Team Providers Care Bag Printer Name Role Phone Larry Bedolla MD Primary Care Provider + [phone] Sary Brannon APRN Unavailable [phone] Monika Hernandez APRN Primary Care Provider + [phone] Encounter Details Date Type Department Care Team (Late st Contact Info) Description 12/10/2024 Orders Only External Location [address] [place] [address] Provider, External Social History Tobacco Use Types [...] documented as of this encounter Care Teams Bag Printer Relationship Specialty Start Date End Date Larry Bedolla MD [address] [place] [address] PCP - General 12/08/20 01/18/25 Monika Hernandez APRN [address] [place] [address] PCP - General 01/19/25 Sary Brannon APRN 1210 [facility] [address] [place] [address] Referring Physician Gastroenterology 01/07/25 documented as of this encounter
--- OUTSIDE RECORDS SUMMARY | 2025-04-29 08:50 | XMS_ITS | Encounter Summary ---
Author Organization Healthcare Address [address] [place] [address] Care Team Providers Care Mother Baby Rn Name Role Phone Larry Bedolla MD Primary Care Provider + [phone] Sary Brannon APRN Unavailable [phone] Monika Hernandez APRN Primary Care Provider + [phone] Encounter Details Date Type Department Care Team (Late st Contact Info) Description 12/09/2024 Orders Only External Location [address] [place] [address] Provider, External Social History Tobacco Use Types [...] documented as of this encounter Care Teams Mother Baby Rn Relationship Specialty Start Date End Date Larry Bedolla MD [address] [place] [address] PCP - General 12/08/20 01/18/25 Monika Hernandez APRN [address] [place] [address] PCP - General 01/19/25 Sary Brannon APRN 1210 [facility] [address] [place] [address] Referring Physician Gastroenterology 01/07/25 documented as of this encounter
--- OUTSIDE RECORDS SUMMARY | 2025-04-29 08:50 | XMS_ITS | Encounter Summary ---
Author Organization Healthcare Address [address] [place] [address] Care Team Providers Care Senior Talent Acquisition Specialist Name Role Phone Sary Brannon STATIONARY FIREMAN Unavailable [phone] Carlos Hernandezica ÁNGEL Primary Care Provider + [phone] Encounter Details Date Type Department Care Team (Late st Contact Info) Description 04/14/2025 Telephone [facility] [address] [facility] [address] [place] [address] Varun Bass Social History Tobacco Use Types [...] me a call back to r/s at [phone]. documented in this encounter Plan of Treatment [...] as of this encounter Care Teams Senior Talent Acquisition Specialist Relationship Specialty Start Date End Date Monika Hernandez APRN [address] [place] [address] PCP - General 01/19/25 Sary Brannon APRN [facility] [address] [place] [address] Referring Physician Gastroenterology 01/07/25 documented as of this encounter
--- OUTSIDE RECORDS SUMMARY | 2025-04-29 08:50 | XMS_ITS | Encounter Summary ---
Author Organization Healthcare Address [address] [place] [address] Care Team Providers Care Architectural Technician Name Role Phone Larry Bedolla MD Primary Care Provider + [phone] Sary Brannon APRN Unavailable [phone] Monika Hernandez APRN Primary Care Provider + [phone] Encounter Details Date Type Department Care Team (Late st Contact Info) Description 11/29/2024 Orders Only External Location [address] [place] [address] Provider, External Social History Tobacco Use Types [...] documented as of this encounter Care Teams Architectural Technician Relationship Specialty Start Date End Date Larry Bedolla MD [address] [place] [address] PCP - General 12/08/20 01/18/25 Monika Hernandez APRN [address] [place] [address] PCP - General 01/19/25 Sary Brannon APRN [address] [place] [address] [address] [place] [address] Referring Physician Gastroenterology 01/07/25 documented as of this encounter
--- OUTSIDE RECORDS SUMMARY | 2025-04-29 08:50 | XMS_ITS | Encounter Summary ---
Author Organization Healthcare Address [address] [place] [address] Care Team Providers Care Tonsorial Artist Name Role Phone Larry Bedolla MD Primary Care Provider + [phone] Sary Brannon APRN Unavailable [phone] Monika Hernandez APRN Primary Care Provider + [phone] Encounter Details Date Type Department Care Team (Late st Contact Info) Description 11/30/2024 Orders Only External Location [address] [place] [address] Provider, External Social History Tobacco Use Types [...] documented as of this encounter Care Teams Tonsorial Artist Relationship Specialty Start Date End Date Larry Bedolla MD [address] [place] [address] PCP - General 12/08/20 01/18/25 Monika Hernandez APRN [address] [place] [address] PCP - General 01/19/25 Sary Brannon APRN [address] [place] [address] Referring Physician Gastroenterology 01/07/25 documented as of this encounter
--- OUTSIDE RECORDS SUMMARY | 2025-04-29 08:50 | XMS_ITS | Clinical Summary ---
[facility] Address [address] [place] [address] Care Team Providers Care Stock Analyst Name Role Phone Sherri Adkins APRN Primary [...] VACCINE 02/25/2025 Insurance [employer] Care Teams Stock Analyst Relationship Specialty Start Date End Date Sherri Adkins APRN [address] [place] [address] PCP - General Family Medicine 03/12/16
--- OUTSIDE RECORDS SUMMARY | 2025-04-29 08:50 | XMS_ITS | Encounter Summary ---
Author Organization Healthcare Address [address] [place] [address] Care Team Providers Care Firestop/Containment Worker Name Role Phone Larry Bedolla MD Primary Care Provider + [phone] Sary Brannon APRN Unavailable [phone] Monika Hernandez APRN Primary Care Provider + [phone] Encounter Details Date Type Department Care Team (Late st Contact Info) Description 11/30/2024 Orders Only External Location [address] [place] [address] Provider, External Social History Tobacco Use Types [...] documented as of this encounter Care Teams Firestop/Containment Worker Relationship Specialty Start Date End Date Larry Bedolla MD [address] [place] [address] PCP - General 12/08/20 01/18/25 Monika Hernandez APRN [address] [place] [address] PCP - General 01/19/25 Sary Brannon APRN 1210 [facility] [address] [place] [address] Referring Physician Gastroenterology 01/07/25 documented as of this encounter
--- OUTSIDE RECORDS SUMMARY | 2025-04-29 08:50 | XMS_ITS | Encounter Summary ---
Author Organization Healthcare Address [address] [place] [address] Care Team Providers Care Park Superintendent Name Role Phone Larry Bedolla MD Primary Care Provider + [phone] Sary Brannon APRN Unavailable [phone] Monika Hernandez APRN Primary Care Provider + [phone] Encounter Details Date Type Department Care Team (Late st Contact Info) Description 12/04/2024 Orders Only External Location [address] [place] [address] Provider, External Social History Tobacco Use Types [...] documented as of this encounter Care Teams Park Superintendent Relationship Specialty Start Date End Date Larry Bedolla MD [address] [place] [address] PCP - General 12/08/20 01/18/25 Monika Hernandez APRN [address] [place] [address] PCP - General 01/19/25 Sary Brannon APRN 1210 [facility] [address] [place] [address] Referring Physician Gastroenterology 01/07/25 documented as of this encounter
--- OUTSIDE RECORDS SUMMARY | 2025-04-29 08:50 | XMS_ITS | Encounter Summary ---
Author Organization Healthcare Address [address] [place] [address] Care Team Providers Care Heel Slugger Name Role Phone Larry Bedolla MD Primary Care Provider + [phone] Sary Brannon APRN Unavailable [phone] Monika Hernandez APRN Primary Care Provider + [phone] Encounter Details Date Type Department Care Team (Late st Contact Info) Description 12/06/2024 Orders Only External Location [address] [place] [address] Provider, External Social History Tobacco Use Types [...] documented as of this encounter Care Teams Heel Slugger Relationship Specialty Start Date End Date Larry Bedolla MD [address] [place] [address] PCP - General 12/08/20 01/18/25 Monika Hernandez APRN [address] [place] [address] PCP - General 01/19/25 Sary Brannon APRN 1210 [facility] [address] [place] [address] Referring Physician Gastroenterology 01/07/25 documented as of this encounter
--- OUTSIDE RECORDS SUMMARY | 2025-04-29 08:50 | XMS_ITS | Encounter Summary ---
Author Organization Healthcare Address [address] [place] [address] Care Team Providers Care Sleeper Cutter Name Role Phone Larry Bedolla MD Primary Care Provider + [phone] Sary Brannon APRN Unavailable [phone] Monika Hernandez APRN Primary Care Provider + [phone] Encounter Details Date Type Department Care Team (Late st Contact Info) Description 12/02/2024 Orders Only External Location [address] [place] [address] Provider, External Social History Tobacco Use Types [...] documented as of this encounter Care Teams Sleeper Cutter Relationship Specialty Start Date End Date Larry Bedolla MD [address] [place] [address] PCP - General 12/08/20 01/18/25 Monika Hernandez APRN [address] [place] [address] PCP - General 01/19/25 Sary Brannon APRN [address] [place] [address] [address] [place] [address] Referring Physician Gastroenterology 01/07/25 documented as of this encounter
--- OUTSIDE RECORDS SUMMARY | 2025-04-29 08:50 | XMS_ITS | Encounter Summary ---
Author Organization Healthcare Address [address] [place] [address] Care Team Providers Care Parcel Wrapper Name Role Phone Larry Bedolla MD Primary Care Provider + [phone] Sary Brannon APRN Unavailable [phone] Monika Hernandez APRN Primary Care Provider + [phone] Encounter Details Date Type Department Care Team (Late st Contact Info) Description 10/26/2024 Orders Only External Location [address] [place] [address] Provider, External Social History Tobacco Use Types [...] documented as of this encounter Care Teams Parcel Wrapper Relationship Specialty Start Date End Date Larry Bedolla MD [address] [place] [address] PCP - General 12/08/20 01/18/25 Monika Hernandez APRN [address] [place] [address] PCP - General 01/19/25 Sary Brannon APRN 1210 [facility] [address] [place] [address] Referring Physician Gastroenterology 01/07/25 documented as of this encounter
--- OUTSIDE RECORDS SUMMARY | 2025-04-29 08:50 | XMS_ITS | Encounter Summary ---
Author Organization Healthcare Address [address] [place] [address] Care Team Providers Care Supervisor Final Name Role Phone Larry Bedolla MD Primary Care Provider + [phone] Sary Brannon APRN Unavailable [phone] Monika Hernandez APRN Primary Care Provider [phone] Encounter Details Date Type Department Care Team (Late st Contact Info) Description 12/31/2024 Orders Only External Location [address] [place] [address] Monika Hernandez APRN [address] [place], [place] [address] Social History Tobacco Use Types Packs/Day Years [...] 12/31/2024 7:33 AM EDT Monika Hernandez APRN [facility] Final Result documented in this encounter Visit Diagnoses Not on filedocumented in this encounter Additional Health Concerns Assessment Noted Time A fall risk assessment has been complete d for the patient 01/02/2022 1:17 PM EDT A Body Mass Index follow-up plan has been documented for the patient 11/13/2022 11:41 AM EDT documented as of this encounter Care Teams Supervisor Final Relationship Specialty Start Date End Date Larry Bedolla MD [address] [place] [address] PCP - General 12/08/20 01/18/25 Monika Hernandez APRN [address] [place] [address] PCP - General 01/19/25 Sary Brannon APRN 1210 [facility] [address] [place] [address] Referring Physician Gastroenterology 01/07/25 documented as of this encounter
--- OUTSIDE RECORDS SUMMARY | 2025-04-29 08:50 | XMS_ITS | Encounter Summary ---
Author Organization Healthcare Address [address] [place] [address] Care Team Providers Care Research Manager Name Role Phone Larry Bedolla MD Primary Care Provider + [phone] Sary Brannon APRN Unavailable [phone] Monika Hernandez APRN Primary Care Provider [phone] Encounter Details Date Type Department Care Team (Late st Contact Info) Description 01/21/2022 Community [facility] [address] [place] [address] Larry Bedolla MD [address] [place], [place] [id number] Central stenosis of spinal canal (Primary Dx) [...] documented as of this encounter Care Teams Research Manager Relationship Specialty Start Date End Date Larry Bedolla MD [address] [place] [address] PCP - General 12/08/20 01/18/25 Monika Hernnadez APRN [address] [place], [place] [address] PCP - General 01/19/25 Sary Brannon APRN 1210 [facility] [address] [place] [address] Referring Physician Gastroenterology 01/07/25 documented as of this encounter
--- OUTSIDE RECORDS SUMMARY | 2025-04-29 08:50 | XMS_ITS | Clinical Summary ---
Author Organization [facility] [place] [address] Care Team Providers Care Medical Office Administrator Name Role Phone Unavailable Primary Care Provider [...]
--- OUTSIDE RECORDS SUMMARY | 2025-04-29 08:50 | XMS_ITS | Encounter Summary ---
Author Organization Healthcare Address [address] [place] [address] Care Team Providers Care Transmission System Operator Name Role Phone Larry Bedolla MD Primary Care Provider + [phone] Sary Brannon APRN Unavailable [phone] Monika Hernandez APRN Primary Care Provider + [phone] Encounter Details Date Type Department Care Team (Late st Contact Info) Description 12/10/2024 Orders Only External Location [address] [place] [address] Provider, External Social History Tobacco Use Types [...] documented as of this encounter Care Teams Transmission System Operator Relationship Specialty Start Date End Date Larry Bedolla MD [address] [place] [address] PCP - General 12/08/20 01/18/25 Monika Hernandez APRN [address] [place] [address] PCP - General 01/19/25 Sary Brannon APRN 1210 [facility] [address] [place] [address] Referring Physician Gastroenterology 01/07/25 documented as of this encounter
--- OUTSIDE RECORDS SUMMARY | 2025-04-29 08:50 | XMS_ITS | Encounter Summary ---
Author Organization Healthcare Address [address] [place] [address] Care Team Providers Care Line Up Machine Operator Name Role Phone Larry Bedolla MD Primary Care Provider + [phone] Sary Brannon APRN Unavailable [phone] Monika Hernandez APRN Primary Care Provider + [phone] Encounter Details Date Type Department Care Team (Late st Contact Info) Description 11/30/2024 Orders Only External Location [address] [place] [address] Provider, External Social History Tobacco Use Types [...] documented as of this encounter Care Teams Line Up Machine Operator Relationship Specialty Start Date End Date Larry Bedolla MD [address] [place] [address] PCP - General 12/08/20 01/18/25 Monika Hernandez APRN [address] [place] [address] PCP - General 01/19/25 Sary Brannon APRN 1210 [facility] [address] [place] [address] Referring Physician Gastroenterology 01/07/25 documented as of this encounter
--- OUTSIDE RECORDS SUMMARY | 2025-04-29 08:50 | XMS_ITS | Encounter Summary ---
Author Organization Healthcare Address [address] [place] [address] Care Team Providers Care Bulk System Operator Name Role Phone Larry Bedolla MD Primary Care Provider + [phone] Sary Brannon APRN Unavailable +[phone] Monika Hernandez APRN Primary Care Provider [phone] Reason for Referral * Consultation (Routine) - Closed Specialty Diagnoses / Procedures Referred By Mayela may Referred To Contact Hepatology Diagnoses Bilious vomiting with nausea Anticentromere antibodies present Thrombopenia Stage 3 hepatic fibrosis Raul Kincaid PA [facility] [place] [address] Phone: tel: fax: Referral ID Status Reason Start Date Expiration Date V isits Requested Visits Authorized [id number] Closed Specialty Services Required 09/27/2021 03/29/2023 1 1 Encounter Details Date Type Department Care Team (Late st Contact Info) Description 09/27/2021 Community [facility] Community Practice [address] [place] [address] Raul Kincaid PA [address] [place] [address] Bilious vomiting with nausea (Primary [...] fibrosis documented in this encounter Care Teams Bulk System Operator Relationship Specialty Start Date End Date Larry Bedolla MD [address] [place] [address] [id number] PCP - General 12/08/20 01/18/25 Monika Hernandez APRN [address] [place] [address] PCP - General 01/19/25 Sary Brannon APRN [address] [place] [address] [address] [place] [address] Referring Physician Gastroenterology 01/07/25 documented as of this encounter
--- OUTSIDE RECORDS SUMMARY | 2025-04-29 08:50 | XMS_ITS | Clinical Summary ---
Author Organization Healthcare Address [address] [place] [address] Care Team Providers Care Tile Setter Apprentice Name Role Phone Sary Brannon WIRE WEAVER Unavailable [phone] Monika Hernandez APRN Primary Care Provider [phone] Allergies No known active allergies Medications bisoprolol [...] 3 INJECTIONS DAILY 11/11/19 Active HYDROcodone-acetam inophen ([place]) 10-325 MG tablet 10/24/19 Active spironolactone (Aldactone) 25 MG tablet Take 0.5 tablets by mouth daily. 10/03/19 Active furosemide (Lasix) 40 MG tablet Take by mouth 2 (two) times a day. 10/03/19 Active Insulin Lispro (HUMALOG IJ) Inject as directed. 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 Individual is considered not immune to HBV infection. Blood Venous blood specimen / Unknown Venipuncture / Unknown 02/22/2025 7:18 AM EDT 02/22/2025 7:48 AM EDT Edil Kiran MD LAB BLOOD ORDERABLES Final Resul t [facility] [address] [place] [address] * Alpha fetoprotein, serum (02/22/2025 7:18 AM EDT) Alpha Fetoprotein, Serum <2.3 <10.0 ng/mL 02/22/2025 8:25 AM EDT [facility] Blood Venous blood specimen / Unknown Venipuncture / Unknown 02/22/2025 7:18 AM EDT 02/22/2025 7:48 AM EDT Narrative [facility] - 02/22/2025 8:25 AM EDT Performed by Stone electrochemiluminescent immunoassay which is traceable to the 1st AFP IRP WHO Reference standard 72/255. Results obtained with different test methods or kits cannot be used interchangeably. us Edil Kiran MD LAB BLOOD ORDERABLES Final Resul t Performing Organization Address City/[facility]/ZIP Co de Phone Number [facility] [address] [place] [address] * (ABNORMAL) Hepatitis A Antibody IgG (02/22/2025 7:18 AM EDT) Hepatitis A Antibody IgG Positive(A ) Negative 02/22/2025 8:44 AM EDT [facility] Blood Venous blood specimen / Unknown Venipuncture / Unknown 02/22/2025 7:18 AM EDT 02/22/2025 7:48 AM EDT Edil Kiran MD LAB BLOOD ORDERABLES Final Resul t Performing Organization Address [facility] Co de Phone Number [facility] [address] [place] [address] * Hepatitis C Antibody (02/22/2025 7:18 AM EDT) Hepatitis C Antibody Negative Negative 02/22/2025 8:29 AM EDT [facility] Blood Venous blood specimen / Unknown Venipuncture / Unknown 02/22/2025 7:18 AM EDT 02/22/2025 7:48 AM EDT Edil Kiran MD LAB BLOOD ORDERABLES Final Resul t Performing Organization Address [facility] Co de Phone Number [facility] [address] [place] [address] * Nicotine Cotinine Metabolite (02/22/2025 7:18 AM EDT) NICOTINE <5 <5 ng/mL 02/24/2025 2:3 4 PM EDT [facility] Cotinine <5 <5 ng/mL 02/24/2025 2:3 4 PM EDT [facility] Blood Venous blood specimen / Unknown Venipuncture / Unknown 02/22/2025 7:18 AM EDT 02/22/2025 7:46 AM EDT Narrative [facility] - 02/24/2025 2:34 PM EDT Testing performed by LC-MS/MS at the [facility] Special Chemistry/Toxicology Laboratory. This test was developed and its performance characteristics determined by [facility]. This assay has not been cleared by the FDA. The laboratory is regulated under CLIA as qualified to perform high-complexity testing. This test is used for clinical purposes. us Edil Kiran MD LAB BLOOD ORDERABLES Final Resul t Performing Organization Address [facility] Co de Phone Number [facility] [address] [place] [address] * ABO/Rh (02/22/2025 7:18 AM EDT) ABO/Rh O Positive 02/22/2025 7:14 AM EDT [facility]OD B[facility] Blood Venous blood specimen / Unknown Venipuncture / Unknown 02/22/2025 7:18 AM EDT 02/22/2025 7:46 AM EDT Edil Kiran MD LAB BLOOD BANK TEST ORDERABLES F inal Result Performing Organization Address [facility] de Phone Number BLOOD BANK [address] [place] [address], * Hepatitis B Surface Antigen (02/22/2025 7:18 AM EDT) Hepatitis B Surf Antigen Negative Negative 02/22/2025 8:44 AM EDT [facility] Blood Venous blood specimen / Unknown Venipuncture / Unknown 02/22/2025 7:18 AM EDT 02/22/2025 7:48 AM EDT Edil Kiran MD LAB BLOOD ORDERABLES Final Resul t Performing Organization Address [facility] Co de Phone Number [facility] [address] [place] [address] * (ABNORMAL) Protime-INR (02/22/2025 7:18 AM EDT) Prothrombin Time 18.7(H) 12.0 - 14.3 sec LAB COAGULATION METHOD 02/22/2025 8:04 AM EDT [facility] INR 1.6(H) 0.9 - 1.1 LAB COAGULATION METHOD 02/22/2025 8:04 AM EDT [facility] Blood Venous blood specimen / Unknown Venipuncture / Unknown 02/22/2025 7:18 AM EDT 02/22/2025 7:46 AM EDT Narrative [facility] - 02/22/2025 8:04 AM EDT OPTIMAL INR RANGES FOR PATIENT ON ORAL ANTICOAGULANT THERAPY Prevention of venous thromboembolism INR 2.0 to 3.0 In patients with heart disease: Atrial fibrillation INR 2.0 to 3.0 Valvular heart disease INR 2.0 to 3.0 Tissue heart valves INR 2.0 to 3.0 Mechanical prosthetic valves INR 2.5 to 3.5 Prevention of recurrent ND INR 2.5 to 3.5 us Edil Kiran MD LAB BLOOD ORDERABLES Final Resul t [facility] [address] [place] [address] * (ABNORMAL) Hemogram (CBC) (02/22/2025 7:18 AM EDT) [facility] WBC Count 2.35(L) 3.70 - 10.30 10*3/uL LAB HEMATOLOGY METHOD 02/22/2025 9:33 AM EDT [facility] RBC Count 3.33(L) 3.90 - 5.20 10*6/uL LAB HEMATOLOGY METHOD 02/22/2025 9:33 AM EDT [facility] HGB 10.2(L) 11.2 - 15.7 g/dL LAB HEMATOLOGY METHOD 02/22/2025 9:33 AM EDT [facility] HCT 31.8(L) 34.0 - 45.0 % LAB HEMATOLOGY METHOD 02/22/2025 9:33 AM EDT [facility] Platelet Count 75(L) 155 - 369 10*3/uL LAB HEMATOLOGY METHOD 02/22/2025 9:33 AM EDT [facility] MCV 96 79 - 98 fL LAB HEMATOLOGY METHOD 02/22/2025 9:33 AM EDT [facility] MCH 30.6 26.0 - 32.0 pg LAB HEMATOLOGY METHOD 02/22/2025 9:33 AM EDT [facility] MCHC 32.1 30.7 - 35.5 g/dL LAB HEMATOLOGY METHOD 02/22/2025 9:33 AM EDT [facility] RDW 15.7(H) 11.5 - 14.5 % LAB HEMATOLOGY METHOD 02/22/2025 9:33 AM EDT [facility] MPV 10.5 8.8 - 12.5 fL LAB HEMATOLOGY METHOD 02/22/2025 9:33 AM EDT [facility] nRBC 0.0 <=0.0 per 100 WBCs LAB HEMATOLOGY METHOD 02/22/2025 9:33 AM EDT [facility] Blood Venous blood specimen / Unknown Venipuncture / Unknown 02/22/2025 7:18 AM EDT 02/22/2025 7:41 AM EDT us Edil Kiran MD LAB BLOOD ORDERABLES Final Resul t [facility] [address] [place] [address] * (ABNORMAL) Comprehensive metabolic panel (02/22/2025 7:18 AM EDT) Glucose, Plasma 283(H) 74 - 99 mg/dL 02/22/2025 8:16 AM EDT [facility] BUN, Plasma 30(H) 8 - 23 mg/dL 02/22/2025 8:16 AM EDT [facility] Creatinine, Plasma 2.54(H) 0.60 - 1.10 mg/dL 02/22/2025 8:16 AM EDT [facility] BUN/Creatinine Ratio 12 02/22/2025 8:16 AM EDT [facility] Sodium, Plasma 137 136 - 145 mmol/L 02/22/2025 8:16 AM EDT [facility] Potassium, Plasma 4.3 3.6 - 4.9 mmol/L 02/22/2025 8:16 AM EDT [facility] Chloride, Plasma 105 97 - 107 mmol/L 02/22/2025 8:16 AM EDT [facility] CO2, Plasma 24 22 - 29 mmol/L 02/22/2025 8:16 AM EDT [facility] Anion Gap 8 6 - 16 mmol/L 02/22/2025 8:16 AM EDT [facility] Total Calcium, Plasma 8.6(L) 8.9 - 10.2 mg/dL 02/22/2025 8:16 AM EDT [facility] Total Protein 7.2 6.3 - 7.9 g/dL 02/22/2025 8:16 AM EDT [facility] Albumin, Plasma 2.9(L) 3.5 - 5.2 g/dL 02/22/2025 8:16 AM EDT [facility] AST, Plasma 37(H) 10 - 35 U/L 02/22/2025 8:16 AM EDT [facility] ALT, Plasma 15 10 - 35 U/L 02/22/2025 8:16 AM EDT [facility] Alkaline Phosphatase, Plasma 121 46 - 142 U/L 02/22/2025 8:16 AM EDT [facility] Total Bilirubin, Plasma 0.9 0.2 - 1.1 mg/dL 02/22/2025 8:16 AM EDT [facility] eGFRcr 20.9 mL/min/1.7 3m*2 02/22/2025 8:16 AM EDT [facility] Comment:Reported eGFRcr in m L/min/1.73m2 is based the CKD-EPI 2020 equation that does not use a race coefficient. Blood Venous blood specimen / Unknown Venipuncture / Unknown 02/22/2025 7:18 AM EDT 02/22/2025 7:47 AM EDT us dEil Kiran MD LAB BLOOD ORDERABLES Final Resul t [facility] [address] [place] [address] * (ABNORMAL) Hemoglobin A1c (01/24/2016 1:47 PM [...] EDT 01/24/2016 6:17 PM EDT Sherri Adkins WIRE WEAVER LAB BLOOD ORDERABLES Final Result [employer] from Last 3 Months or Most Recently Relevant to Health Maintenance Insurance [employer]ARE [employer]ICAID Care Teams Tile Setter Apprentice Relationship Specialty Start Date End Date Monika Hernandez APRN [address] [place] [address] PCP - General 01/19/25 Sary Brannon APRN [address] [facility] [address] [place] [address] Referring Physician Gastroenterology 01/07/25
--- OUTSIDE RECORDS SUMMARY | 2025-04-29 08:50 | XMS_ITS | Encounter Summary ---
Author Organization Healthcare Address [address] [place] [address] Care Team Providers Care Fire Prevention Research Engineer Name Role Phone Larry Bedolla MD Primary Care Provider + [phone] Sary Brannon CENTRIFUGAL CHILLER TECHNICIAN Unavailable [phone] Monika Hernandez APRN Primary Care Provider [phone] Encounter Details Date Type Department Care Team (Late st Contact Info) Description 01/03/2025 Community [facility] Community Practice [address] [place] [address] Sary Brannon, CENTRIFUGAL CHILLER TECHNICIAN [address] [place], [place] [id number] Social History Tobacco Use Types Packs/Day Years [...] documented as of this encounter Care Teams Fire Prevention Research Engineer Relationship Specialty Start Date End Date Larry Bedolla MD [address] [place] [address] PCP - General 12/08/20 01/18/25 Moinka Hernandez APRN [address] [place] [address] PCP - General 01/19/25 Sary Brannon APRN [address] [place] [address] Referring Physician Gastroenterology 01/07/25 documented as of this encounter
--- OUTSIDE RECORDS SUMMARY | 2025-04-29 08:50 | XMS_ITS | Encounter Summary ---
Author Organization Healthcare Address [address] [place] [address] Care Team Providers Care Medical Records Assistant Name Role Phone Larry Bedolla MD Primary Care Provider + [phone] Sary Brannon APRN Unavailable [phone] Monika Hernandez APRN Primary Care Provider + [phone] Encounter Details Date Type Department Care Team (Late st Contact Info) Description 12/07/2024 Orders Only External Location [address] [place] [address] Provider, External Social History Tobacco Use Types [...] as of this encounter Care Teams Medical Records Assistant Relationship Specialty Start Date End Date Larry Bedolla MD [address] [place] [address] PCP - General 12/08/20 01/18/25 Monika Hernandez APRN [address] [place] [address] PCP - General 01/19/25 Sary Brannon APRN [address] [facility] [address] [place] [address] Referring Physician Gastroenterology 01/07/25 documented as of this encounter"
--- OUTSIDE RECORDS SUMMARY | 2025-04-29 08:50 | XMS_ITS ---
Author Organization Healthcare Address [address] [place] [address] Care Team Providers Care Breaker Unit Assembler Name Role Phone Sary Brannon APRN Unavailable [phone] Monika Hernandez APRN Primary Care Provider [phone] Transplant Episode Liver Candidate [facility] ([place], [place]) - JOSÉ LUIS Referred on 01/07/2025 Marked as Active on 01/07/2025 Liver CoordinatorMoraima Centeno RN Fax: N/A Email: N/A Scores Score Value Updated Expires Exceptions/Saloni sons CPRA Not available MELD (Calc) 22 02/22/2025 Care Team Name Role Phone Fax Email Moraima Centeno RN Liver Coordinator [phone] N/A N/A Sary Brannon APRN Referring Physician [phone] N/A Gem Clark Actuarial Associate [phone] N/A N/A Edil Kiran MD Surgeon [phone] N/A Events Pre-Transplant Referred: 01/07/2025 Committee: 02/28/2025
--- OUTSIDE RECORDS SUMMARY | 2025-04-29 08:50 | XMS_ITS | Encounter Summary ---
Author Organization Healthcare Address [address] [place] [address] Care Team Providers Care Straight Pin Making Machine Operator Name Role Phone Larry Bedolla MD Primary Care Provider + [phone] Sary Brannon APRN Unavailable [phone] Monika Hernandez APRN Primary Care Provider + [phone] Encounter Details Date Type Department Care Team (Late st Contact Info) Description 11/30/2024 Orders Only External Location [address] [place] [address] Provider, External Social History Tobacco Use Types [...] documented as of this encounter Care Teams Straight Pin Making Machine Operator Relationship Specialty Start Date End Date Larry Bedolla MD [address] [place] [address] PCP - General 12/08/20 01/18/25 Monika Hernandez APRN [address] [place] [address] PCP - General 01/19/25 Sary Brannon APRN [address] [facility] [address] [place] [address] Referring Physician Gastroenterology 01/07/25 documented as of this encounter
[2025-04-29 09:14] LABS: Hematocrit 29.9 % (37.0-47.0); Hemoglobin 9.5 g/dL (12.2-16.2); Immature Granulocytes % 0.4 %; Mean Corpuscular HGB Conc 31.8 g/dL (31.8-35.4); Mean Corpuscular Hemoglobin 31.1 pg (27.0-31.2); Mean Corpuscular Volume 98.0 fl (81-99); Nucleated Red Blood Cells % 0 %; Platelet Count 116 K/mm3 (142-424); Red Blood Count 3.05 M/mm3 (4.20-5.40); Red Cell Distribution Width-SD 53.2 fL; White Blood Count 2.6 K/mm3 (4.8-10.8)
[2025-04-29 09:53] LABS: Albumin Level 2.8 g/dl (3.5-5.0); Chloride 112 mmol/L (98-107); Potassium 4.5 mmoL/L (3.5-5.1); Sodium 140 mmol/L (136-145)
[2025-04-29 09:56] LABS: Anion Gap 9.5 mEq/L (5-15); Blood Urea Nitrogen 43 mg/dl (7-17); Carbon Dioxide 23 mmol/L (22.0-30.0); Creatinine,Serum 2.20 mg/dl (0.52-1.04); Estimated Glomerular Filt Rate 23 ml/min (>60); GFR (African American) 27 ML/MIN (>60); Phosphorous 3.6 mg/dl (2.5-4.5)
[2025-04-29 09:57] LABS: Calcium 8.6 mg/dl (8.4-10.2); Glucose 95 mg/dl (74-100)
[2025-04-29 11:48] LABS: Microscopic, Urine URINE MICROSCOPIC (MICROSCOPIC)
[2025-04-29 12:18] LABS: Bilirubin,Urine Negative (Negative); Color,Urine YELLOW (Yellow); Glucose,Urine (UA) Negative (Negative); Ketones,Urine Negative (Negative); Leukocyte Esterase,Urine Negative (Negative); PH,Urine 6.0 (5.0-8.5); Protein,Urine Negative (Negative); Specific Gravity, Urine 1.015 (1.005-1.030); Urobilinogen,Urine 0.2 EU/dl (0.2)
[2025-04-29 13:10] LABS: Bacteria,Urine Trace /lpf; Hyaline Casts,Urine OCC #/lpf (0)
== END 2025-04-29 23:59 | disposition home or self-care (01) ==
LOC: LAB 08:45
PROVIDERS: PCP Family Medicine; Visit Provider Internal Medicine Nephrology
DX: N17.9 Acute kidney failure, unspecified (principal)
CPT/HCPCS: 36415; 80069; 81001; 85025

== ENCOUNTER 2025-05-06 08:25 | Outpatient (CLI) | payer MEDICARE, MEDICAID, SELFPAY ==
--- OUTSIDE RECORDS SUMMARY | 2025-05-06 08:27 | XMS_ITS | Encounter Summary ---
Author Organization Healthcare Address [address] 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, unspecified vessel or lesion type (CMS/[facility]) Social History Tobacco Use Types Packs/Day Years [...] (mild) Microalbuminuria Proteinuria 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, unspecified vessel or lesion type documented in this encounter Additional Health Concerns Assessment Noted Time A fall risk assessment has been complete d for the patient 01/02/2022 1:17 PM EDT A Body Mass Index follow-up plan has been documented for the patient 11/13/2022 11:41 AM EDT documented as of this encounter Care Teams Brick Tender Relationship Specialty Start Date End Date Larry Bedolla MD [address] [place], [place] [id number] PCP - General 12/08/20 01/18/25 Monika Hernandez APRN [address] [place], [place] [id number] PCP - General 01/19/25 Sary Brannon APRN [facility] [address] [place], [place] [address] Referring Physician Gastroenterology 01/07/25 documented as of this encounter
--- OUTSIDE RECORDS SUMMARY | 2025-05-06 08:27 | XMS_ITS | Referral Summary ---
Author Organization [place] ([place], [place], [place], [place]) Address [address] [place] [address] Care Team Providers Care Almond Grinder Name Role Phone Provider, Not In System [...] your living situation today? I have a [facility] place to live 11/30/2024 Think about [...] speak a language other than [place]kin[place] at [facility]? No 11/30/2024 Do you want help [...] - 5.6 % 11/30/2024 9:17 AM EDT [facility] Comment: Hemoglobin A1C levels are related to mean glucose during the preceding 2-3 months. Less than 7% demonstrates glycemic control in diabetic patients. Hemoglobin AlC % Suggested Diagnosis > or = 6.5 Diabetic 5.7 - 6.4 Prediabetic <5.7 Non-diabetic eAVG Glucose 93.93 70 - 126 mg/dL 11/30/2024 9:17 AM EDT [facility] Blood Venipuncture / Unknown 11/30/2024 8:20 AM EDT 11/30/2024 9:07 AM EDT us Mikhail Hurtado MD LAB BLOOD ORDERABLES Final Resul t [facility] [address] [place] [address], [facility] [phone] from Last 3 Months or Most Recently Relevant to Health Maintenance Insurance [facility] Advance Directives For more information, please contact: [phone] * Full Code (Latest Code Status on File) Date Activated Date Inactivated Comments 11/30/2024 2:06 AM 12/14/2024 6:30 PM Care Teams Almond Grinder Relationship Specialty Start Date End Date Provider, Not In System [place] PCP - General 12/14/24
--- OUTSIDE RECORDS SUMMARY | 2025-05-06 08:28 | XMS_ITS | Encounter Summary ---
Author Organization Healthcare Address [address] [place] [address] Care Team Providers Care Cut Press Operator Name Role Phone Larry Bedolla MD Primary Care Provider + [phone] Sary Brannon APRN Unavailable [phone] Monika Hernandez APRN Primary Care Provider [phone] Reason for Referral * Consultation (Routine) - Closed Specialty Diagnoses / Procedures Referred By Mayela may Referred To Contact Hepatology Diagnoses Bilious vomiting with nausea Anticentromere antibodies present Thrombopenia Stage 3 hepatic fibrosis Raul Kincaid PA [facility] [place] [address] Phone: tel: fax: Referral ID Status Reason Start Date Expiration Date V isits Requested Visits Authorized [id number] Closed Specialty Services Required 09/27/2021 03/29/2023 1 1 Encounter Details Date Type Department Care Team (Late st Contact Info) Description 09/27/2021 Community [facility] Community Practice [address] [place] [address] Raul Kincaid PA [address] [place] [address] Bilious vomiting with nausea (Primary [...] fibrosis documented in this encounter Care Teams Cut Press Operator Relationship Specialty Start Date End Date Larry Bedolla MD [address] [place] [id number] PCP - General 12/08/20 01/18/25 Monika Hernandez APRN [address] [place] [address] PCP - General 01/19/25 Sary Brannon APRN [address] [place] [address] [address] [place] [address] Referring Physician Gastroenterology 01/07/25 documented as of this encounter
--- OUTSIDE RECORDS SUMMARY | 2025-05-06 08:29 | XMS_ITS | Encounter Summary ---
Author Organization Healthcare Address [address] [place] [address] Care Team Providers Care Forest Patrolman Name Role Phone Larry Bedolla MD Primary Care Provider + [phone] Sary Brannon APRN Unavailable [phone] Monika Hernandez APRN Primary Care Provider + [phone] Encounter Details Date Type Department Care Team (Late st Contact Info) Description 12/04/2024 Orders Only External Location [address] [place] [address] Provider, External Social History Tobacco Use Types [...] documented as of this encounter Care Teams Forest Patrolman Relationship Specialty Start Date End Date Larry Bedolla MD [address] [place] [address] PCP - General 12/08/20 01/18/25 Monika Hernandez APRN [address] [place] [address] PCP - General 01/19/25 Sary Brannon APRN 1210 [facility] [address] [place] [address] Referring Physician Gastroenterology 01/07/25 documented as of this encounter
--- OUTSIDE RECORDS SUMMARY | 2025-05-06 08:29 | XMS_ITS | Encounter Summary ---
Author Organization Healthcare Address [address] [place] [address] Care Team Providers Care Mobile Therapist Name Role Phone Larry Bedolla MD Primary Care Provider + [phone] Sary Brannon APRN Unavailable [phone] Monika Hernandez APRN Primary Care Provider + [phone] Encounter Details Date Type Department Care Team (Late st Contact Info) Description 12/06/2024 Orders Only External Location [address] [place] [address] Provider, External Social History Tobacco Use Types [...] documented as of this encounter Care Teams Mobile Therapist Relationship Specialty Start Date End Date Larry Bedolla MD [address] [place] [address] PCP - General 12/08/20 01/18/25 Monika Hernandez APRN [address] [place] [address] PCP - General 01/19/25 Sary Brannon APRN 1210 [facility] [address] [place] [address] Referring Physician Gastroenterology 01/07/25 documented as of this encounter
--- OUTSIDE RECORDS SUMMARY | 2025-05-06 08:29 | XMS_ITS | Encounter Summary ---
Author Organization Healthcare Address [address] [place] [address] Care Team Providers Care Anesthesiologist Assistant Name Role Phone Larry Bedolla MD Primary Care Provider + [phone] Sary Brannon APRN Unavailable [phone] Monika Hernandez APRN Primary Care Provider [phone] Encounter Details Date Type Department Care Team (Late st Contact Info) Description 12/31/2024 Orders Only External Location [address] [place] [address] Monika Hernandez APRN [address] [place], [place] [id number] Social History Tobacco Use Types Packs/Day Years [...] 7:33 AM EDT Monika Hernandez APRN [facility] [place] Final Result documented in this encounter Visit Diagnoses Not on filedocumented in this encounter Additional Health Concerns Assessment Noted Time A fall risk assessment has been complete d for the patient 01/02/2022 1:17 PM EDT A Body Mass Index follow-up plan has been documented for the patient 11/13/2022 11:41 AM EDT documented as of this encounter Care Teams Anesthesiologist Assistant Relationship Specialty Start Date End Date Larry Bedolla MD [address] [place] [address] PCP - General 12/08/20 01/18/25 Monika Hernandez APRN [address] [place] [address] PCP - General 01/19/25 Sary Brannon APRN 1210 [facility] [address] [place] [address] Referring Physician Gastroenterology 01/07/25 documented as of this encounter
--- OUTSIDE RECORDS SUMMARY | 2025-05-06 08:29 | XMS_ITS | Encounter Summary ---
Author Organization Healthcare Address [address] [place] [address] Care Team Providers Care Welding Tester Name Role Phone Larry Bedolla MD Primary Care Provider + [phone] Sary Brannon APRN Unavailable [phone] Monika Hernandez APRN Primary Care Provider + [phone] Encounter Details Date Type Department Care Team (Late st Contact Info) Description 12/10/2024 Orders Only External Location [address] [place] [address] Provider, External Social History Tobacco Use Types [...] documented as of this encounter Care Teams Welding Tester Relationship Specialty Start Date End Date Larry Bedolla MD [address] [place] [address] PCP - General 12/08/20 01/18/25 Monika Hernandez APRN [address] [place] [address] PCP - General 01/19/25 Sary Brannon APRN 1210 [facility] [address] [place] [address] Referring Physician Gastroenterology 01/07/25 documented as of this encounter
--- OUTSIDE RECORDS SUMMARY | 2025-05-06 08:29 | XMS_ITS | Encounter Summary ---
Author Organization Healthcare Address [address] [place] [address] Care Team Providers Care Finance Assistant Name Role Phone Larry Bedolla MD Primary Care Provider + [phone] Sary Brannon COMPUTER FORENSICS ANALYST Unavailable +[phone] Monika Hernandez APRN Primary Care Provider [phone] Reason for Visit * Reason Comments Med Refill Encounter Details Date Type Department Care Team (Late st Contact Info) Description 04/12/2021 [facility] [address] [place] [address] Lina Lowe, COMPUTER FORENSICS ANALYST [address] [facility] [address] [place] [address] Social History Tobacco Use Types [...] on filedocumented in this encounter Care Teams Finance Assistant Relationship Specialty Start Date End Date Larry Bedolla MD [address] [place], [place] [id number] PCP - General 12/08/20 01/18/25 Monika Hernandez APRN [address] [place] [address] PCP - General 01/19/25 Sary Brannon APRN 1210 [facility] [address] [place] [address] Referring Physician Gastroenterology 01/07/25 documented as of this encounter
--- OUTSIDE RECORDS SUMMARY | 2025-05-06 08:29 | XMS_ITS | Encounter Summary ---
Author Organization Healthcare Address [address] [place] [address] Care Team Providers Care Wool Hat Finisher Name Role Phone Larry Bedolla MD Primary Care Provider + [phone] Sary Brannon APRN Unavailable [phone] Monika Hernandez APRN Primary Care Provider + [phone] Encounter Details Date Type Department Care Team (Late st Contact Info) Description 12/09/2024 Orders Only External Location [address] [place] [address] Provider, External Social History Tobacco Use Types [...] documented as of this encounter Care Teams Wool Hat Finisher Relationship Specialty Start Date End Date Larry Bedolla MD [address] [place] [address] PCP - General 12/08/20 01/18/25 Monika Hernandez APRN [address] [place] [address] PCP - General 01/19/25 Sary Brannon APRN 1210 [facility] [address] [place] [address] Referring Physician Gastroenterology 01/07/25 documented as of this encounter
--- OUTSIDE RECORDS SUMMARY | 2025-05-06 08:29 | XMS_ITS | Encounter Summary ---
Author Organization Healthcare Address [address] [place] [address] Care Team Providers Care Nitroglycerin Distributor Name Role Phone Larry Bedolla MD Primary Care Provider + [phone] Sary Brannon APRN Unavailable [phone] Monika Hernandez APRN Primary Care Provider + [phone] Encounter Details Date Type Department Care Team (Late st Contact Info) Description 12/10/2024 Orders Only External Location [address] [place] [address] Provider, External Social History Tobacco Use Types [...] documented as of this encounter Care Teams Nitroglycerin Distributor Relationship Specialty Start Date End Date Larry Bedolla MD [address] [place] [address] PCP - General 12/08/20 01/18/25 Monika Hernandez APRN [address] [place] [address] PCP - General 01/19/25 Sary Brannon APRN 1210 [facility] [address] [place] [address] Referring Physician Gastroenterology 01/07/25 documented as of this encounter
--- OUTSIDE RECORDS SUMMARY | 2025-05-06 08:29 | XMS_ITS | Encounter Summary ---
Author Organization Healthcare Address [address] [place] [address] Care Team Providers Care Change Control Coordinator Name Role Phone Larry Bedolla MD Primary Care Provider + [phone] Sary Brannon APRN Unavailable +[phone] Monika Hernandez APRN Primary Care Provider [phone] Encounter Details Date Type Department Care Team (Late st Contact Info) Description 01/21/2022 Community [facility] [address] [place] [address] Larry Bedolla MD [address] [place], [place] [id number] Central stenosis of spinal canal (Primary Dx) [...] documented as of this encounter Care Teams Change Control Coordinator Relationship Specialty Start Date End Date Larry Bedolla MD [address] [place] [address] PCP - General 12/08/20 01/18/25 Monika Hernandez APRN [address] [place], [place] [id number] PCP - General 01/19/25 Sary Brannon APRN 1210 [facility] [address] [place] [address] Referring Physician Gastroenterology 01/07/25 documented as of this encounter
--- OUTSIDE RECORDS SUMMARY | 2025-05-06 08:29 | XMS_ITS | Clinical Summary ---
[facility] [address] [place] [address] Care Team Providers Care Inspector Assemblies And Installations Name Role Phone Sherri Adkins APRN Primary [...] VACCINE 02/25/2025 Insurance [employer] Care Teams Inspector Assemblies And Installations Relationship Specialty Start Date End Date Sherri Adkins APRN [address] [place] [address] PCP - General Family Medicine 03/12/16
--- OUTSIDE RECORDS SUMMARY | 2025-05-06 08:29 | XMS_ITS | Encounter Summary ---
Author Organization Healthcare Address [address] [place] [address] Care Team Providers Care Claims Representative Name Role Phone Larry Bedolla MD Primary Care Provider + [phone] Sary Brannon APRN Unavailable [phone] Monika Hernandez APRN Primary Care Provider + [phone] Encounter Details Date Type Department Care Team (Late st Contact Info) Description 12/07/2024 Orders Only External Location [address] [place] [address] Provider, External Social History Tobacco Use Types [...] documented as of this encounter Care Teams Claims Representative Relationship Specialty Start Date End Date Larry Bedolla MD [address] [place] [address] PCP - General 12/08/20 01/18/25 Monika Hernandez APRN [address] [place] [address] PCP - General 01/19/25 Sary Brannon APRN 1210 [facility] [address] [place] [address] Referring Physician Gastroenterology 01/07/25 documented as of this encounter
--- OUTSIDE RECORDS SUMMARY | 2025-05-06 08:29 | XMS_ITS | Encounter Summary ---
Author Organization Healthcare Address [address] [place] [address] Care Team Providers Care Material Movers Name Role Phone Larry Bedolla MD Primary Care Provider + [phone] Sary Brannon APRN Unavailable [phone] Monika Hernandez APRN Primary Care Provider + [phone] Encounter Details Date Type Department Care Team (Late st Contact Info) Description 12/02/2024 Orders Only External Location [address] [place] [address] Provider, External Social History Tobacco Use Types [...] as of this encounter Care Teams Material Movers Relationship Specialty Start Date End Date Larry Bedolla MD [address] [place] [address] PCP - General 12/08/20 01/18/25 Monika Hernandez APRN [address] [place] [address] PCP - General 01/19/25 Sary Brannon APRN [address] [place] [address] [address] [place] [address] Referring Physician Gastroenterology 01/07/25 documented as of this encounter
--- OUTSIDE RECORDS SUMMARY | 2025-05-06 08:29 | XMS_ITS | Encounter Summary ---
Author Organization Healthcare Address [address] [place] [address] Care Team Providers Care Digital Strategy Manager Name Role Phone Larry Bedolla MD Primary Care Provider + [phone] Sary Brannon APRN Unavailable [phone] Monika Hernandez APRN Primary Care Provider + [phone] Encounter Details Date Type Department Care Team (Late st Contact Info) Description 12/03/2024 Orders Only External Location [address] [place] [address] Provider, External Social History Tobacco Use Types [...] documented as of this encounter Care Teams Digital Strategy Manager Relationship Specialty Start Date End Date Larry Bedolla MD [address] [place] [address] PCP - General 12/08/20 01/18/25 Monika Hernandez APRN [address] [place] [address] PCP - General 01/19/25 Sary Brannon APRN 1210 [facility] [address] [place] [address] Referring Physician Gastroenterology 01/07/25 documented as of this encounter
--- OUTSIDE RECORDS SUMMARY | 2025-05-06 08:30 | XMS_ITS | Encounter Summary ---
Author Organization Healthcare Address [address] [place] [address] Care Team Providers Care Intertype Operator Name Role Phone Larry Bedolla MD Primary Care Provider + [phone] Sary Brannon APRN Unavailable [phone] Monika Hernandez APRN Primary Care Provider + [phone] Encounter Details Date Type Department Care Team (Late st Contact Info) Description 11/30/2024 Orders Only External Location [address] [place] [address] Provider, External Social History Tobacco Use Types [...] documented as of this encounter Care Teams Intertype Operator Relationship Specialty Start Date End Date Larry Bedolla MD [address] [place] [address] PCP - General 12/08/20 01/18/25 Monika Hernandez APRN [address] [place] [address] PCP - General 01/19/25 Sary Brannon APRN [address] [place] [address] Referring Physician Gastroenterology 01/07/25 documented as of this encounter
--- OUTSIDE RECORDS SUMMARY | 2025-05-06 08:30 | XMS_ITS | Encounter Summary ---
Author Organization Healthcare Address [address] [place] [address] Care Team Providers Care Manager Outreach Name Role Phone Sary Brannon FASHION DIRECTOR PARTY PLAN SALES Unavailable [phone] Carlos Hernandezica ÁNGEL Primary Care Provider + [phone] Encounter Details Date Type Department Care Team (Late st Contact Info) Description 04/14/2025 Telephone [facility] [address] [facility] [address] [place] [id number] Varun Bass Social History Tobacco Use Types [...] me a call back to r/s at [phone]. documented in this encounter Plan of Treatment [...] as of this encounter Care Teams Manager Outreach Relationship Specialty Start Date End Date Monika Hernandez APRN [address] [place] [address] PCP - General 01/19/25 Sary Brannon APRN [facility] [address] [place] [address] Referring Physician Gastroenterology 01/07/25 documented as of this encounter
--- OUTSIDE RECORDS SUMMARY | 2025-05-06 08:30 | XMS_ITS | Encounter Summary ---
Author Organization Healthcare Address [address] [place] [address] Care Team Providers Care Rotary Bar Operator Name Role Phone Larry Bedolla MD Primary Care Provider + [phone] Sary Brannon APRN Unavailable [phone] Monika Hernandez APRN Primary Care Provider + [phone] Encounter Details Date Type Department Care Team (Late st Contact Info) Description 11/30/2024 Orders Only External Location [address] [place] [address] Provider, External Social History Tobacco Use Types [...] documented as of this encounter Care Teams Rotary Bar Operator Relationship Specialty Start Date End Date Larry Bedolla MD [address] [place] [address] PCP - General 12/08/20 01/18/25 Monika Hernandez APRN [address] [place] [address] PCP - General 01/19/25 Sary Brannon APRN 1210 [facility] [address] [place] [address] Referring Physician Gastroenterology 01/07/25 documented as of this encounter
--- OUTSIDE RECORDS SUMMARY | 2025-05-06 08:30 | XMS_ITS | Encounter Summary ---
Author Organization Healthcare Address [address] [place] [address] Care Team Providers Care Client Coordinator Name Role Phone Larry Bedolla MD Primary Care Provider + [phone] Sary Brannon APRN Unavailable [phone] Monika Hernandez APRN Primary Care Provider + [phone] Encounter Details Date Type Department Care Team (Late st Contact Info) Description 11/29/2024 Orders Only External Location [address] [place] [address] Provider, External Social History Tobacco Use Types [...] as of this encounter Care Teams Client Coordinator Relationship Specialty Start Date End Date Larry Bedolla MD [address] [place] [address] PCP - General 12/08/20 01/18/25 Monika Hernandez APRN [address] [place] [address] PCP - General 01/19/25 Sary Brannon APRN [address] [place] [address] [address] [place] [address] Referring Physician Gastroenterology 01/07/25 documented as of this encounter
--- OUTSIDE RECORDS SUMMARY | 2025-05-06 08:30 | XMS_ITS | Encounter Summary ---
Author Organization Healthcare Address [address] [place] [address] Care Team Providers Care Industrial Economics Teacher Name Role Phone Larry Bedolla MD Primary Care Provider + [phone] Sary Brannon ASSOCIATE PROGRAMMER ANALYST Unavailable [phone] Monika Hernandez APRN Primary Care Provider [phone] Encounter Details Date Type Department Care Team (Late st Contact Info) Description 01/03/2025 Community [facility] [address] [place] [address] Sary Brannon, ASSOCIATE PROGRAMMER ANALYST [address] [place], [place] [address] Social History Tobacco Use Types Packs/Day Years [...] documented as of this encounter Care Teams Industrial Economics Teacher Relationship Specialty Start Date End Date Larry Bedolla MD [address] [place] [address] PCP - General 12/08/20 01/18/25 Monika Hernandez APRN [address] [place] [address] PCP - General 01/19/25 Sary Brannon APRN [address] [place] [address] Referring Physician Gastroenterology 01/07/25 documented as of this encounter
--- OUTSIDE RECORDS SUMMARY | 2025-05-06 08:30 | XMS_ITS | Encounter Summary ---
Author Organization Healthcare Address [address] [place] [address] Care Team Providers Care Poolroom/Poolhall Manager Name Role Phone Larry Bedolla MD Primary Care Provider + [phone] Sary Brannon APRN Unavailable [phone] Monika Hernandez APRN Primary Care Provider + [phone] Encounter Details Date Type Department Care Team (Late st Contact Info) Description 04/30/2018 Orders Only External Location [address] [place] [address] Provider, External Social History Tobacco Use Types [...] on filedocumented in this encounter Care Teams Poolroom/Poolhall Manager Relationship Specialty Start Date End Date Larry Bedolla MD [address] [place] [address] PCP - General 12/08/20 01/18/25 Monika Hernandez APRN [address] [place] [address] PCP - General 01/19/25 Sary Brannon APRN 1210 [facility] [address] [place] [address] Referring Physician Gastroenterology 01/07/25 documented as of this encounter
--- OUTSIDE RECORDS SUMMARY | 2025-05-06 08:30 | XMS_ITS | Encounter Summary ---
Author Organization Healthcare Address [address] [place] [address] Care Team Providers Care Environmental Restoration Planner Name Role Phone Larry Bedolla MD Primary Care Provider + [phone] Sary Brannon APRN Unavailable [phone] Monika Hernandez APRN Primary Care Provider + [phone] Encounter Details Date Type Department Care Team (Late st Contact Info) Description 11/30/2024 Orders Only External Location [address] [place] [address] Provider, External Social History Tobacco Use Types [...] documented as of this encounter Care Teams Environmental Restoration Planner Relationship Specialty Start Date End Date Larry Bedolla MD [address] [place] [address] PCP - General 12/08/20 01/18/25 Monika Hernandez APRN [address] [place] [address] PCP - General 01/19/25 Sary Brannon APRN 1210 [facility] [address] [place] [address] Referring Physician Gastroenterology 01/07/25 documented as of this encounter
--- OUTSIDE RECORDS SUMMARY | 2025-05-06 08:30 | XMS_ITS | Encounter Summary ---
Author Organization Healthcare Address [address] [place] [address] Care Team Providers Care Hat Block Bench Hand Name Role Phone Larry Bedolla MD Primary Care Provider + [phone] Sary Brannon APRN Unavailable [phone] Monika Hernandez APRN Primary Care Provider + [phone] Encounter Details Date Type Department Care Team (Late st Contact Info) Description 04/02/2017 Orders Only External Location [address] [place] [address] Provider, External Social History Tobacco Use Types [...] on filedocumented in this encounter Care Teams Hat Block Bench Hand Relationship Specialty Start Date End Date Larry Bedolla MD [address] [place] [address] PCP - General 12/08/20 01/18/25 Monika Hernandez APRN [address] [place] [address] PCP - General 01/19/25 Sary Brannon APRN 1210 [facility] [address] [place] [address] Referring Physician Gastroenterology 01/07/25 documented as of this encounter
--- OUTSIDE RECORDS SUMMARY | 2025-05-06 08:30 | XMS_ITS | Clinical Summary ---
Author Organization Healthcare Address [address] [place] [address] Care Team Providers Care Carbonation Equipment Operator Name Role Phone Sary Brannon BARREL FILLER HEAD Unavailable [phone] Monika Hernandez APRN Primary Care Provider [phone] Allergies No known active allergies Medications bisoprolol [...] 3 INJECTIONS DAILY 11/11/19 Active HYDROcodone-acetam inophen (Beemer) 10-325 MG tablet 10/24/19 Active spironolactone (Aldactone) 25 MG tablet Take 0.5 tablets by mouth daily. 10/03/19 Active furosemide (Lasix) 40 MG tablet Take by mouth 2 (two) times a day. 10/03/19 Active Insulin Lispro (HUMALOG IJ) Inject as directed. 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 Individual is considered not immune to HBV infection. Blood Venous blood specimen / Unknown Venipuncture / Unknown 02/22/2025 7:18 AM EDT 02/22/2025 7:48 AM EDT Edil Kiran MD LAB BLOOD ORDERABLES Final Resul t [facility] [address] [place] [address] * Alpha fetoprotein, serum (02/22/2025 7:18 AM EDT) Alpha Fetoprotein, Serum <2.3 <10.0 ng/mL 02/22/2025 8:25 AM EDT [facility] Blood Venous blood specimen / Unknown Venipuncture / Unknown 02/22/2025 7:18 AM EDT 02/22/2025 7:48 AM EDT Narrative [facility] - 02/22/2025 8:25 AM EDT Performed by Stone electrochemiluminescent immunoassay which is traceable to the 1st AFP IRP WHO Reference standard 72/255. Results obtained with different test methods or kits cannot be used interchangeably. Edil Kiran MD LAB BLOOD ORDERABLES Final Resul t [facility] [address] [place] [address] * (ABNORMAL) Hepatitis A Antibody IgG (02/22/2025 7:18 AM EDT) Hepatitis A Antibody IgG Positive(A ) Negative 02/22/2025 8:44 AM EDT [facility] Blood Venous blood specimen / Unknown Venipuncture / Unknown 02/22/2025 7:18 AM EDT 02/22/2025 7:48 AM EDT us Edil Kiran MD LAB BLOOD ORDERABLES Final Resul t Performing Organization Address City/[facility]/ZIP Co de Phone Number [facility] [address] [place] [address] * Hepatitis C Antibody (02/22/2025 7:18 AM EDT) Pathologist [facility] Hepatitis C Antibody Negative Negative 02/22/2025 8:29 AM EDT [facility] Blood Venous blood specimen / Unknown Venipuncture / Unknown 02/22/2025 7:18 AM EDT 02/22/2025 7:48 AM EDT us Edil Kiran MD LAB BLOOD ORDERABLES Final Resul t Performing Organization Address [facility] Co de Phone Number [facility] [address] [place] [address] * Nicotine Cotinine Metabolite (02/22/2025 7:18 AM EDT) NICOTINE <5 <5 ng/mL 02/24/2025 2:3 4 PM EDT [facility] Cotinine <5 <5 ng/mL 02/24/2025 2:3 4 PM EDT [facility] Blood Venous blood specimen / Unknown Venipuncture / Unknown 02/22/2025 7:18 AM EDT 02/22/2025 7:46 AM EDT Narrative [facility] - 02/24/2025 2:34 PM EDT Testing performed by LC-MS/MS at the [facility] Special Chemistry/Toxicology Laboratory. This test was developed and its performance characteristics determined by [facility]. This assay has not been cleared by the FDA. The laboratory is regulated under CLIA as qualified to perform high-complexity testing. This test is used for clinical purposes. us Edil Kiran MD LAB BLOOD ORDERABLES Final Resul t Performing Organization Address [facility] Co de Phone Number [facility] [address] [place] [address] * ABO/Rh (02/22/2025 7:18 AM EDT) ABO/Rh O Positive 02/22/2025 7:14 AM EDT BLOOD BANK Blood Venous blood specimen / Unknown Venipuncture / Unknown 02/22/2025 7:18 AM EDT 02/22/2025 7:46 AM EDT us Edil Kiran MD LAB BLOOD BANK TEST ORDERABLES F inal Result Performing Organization Address [facility] de Phone Number BLOOD BANK [address] [place] [address] * Hepatitis B Surface Antigen (02/22/2025 7:18 AM EDT) Hepatitis B Surf Antigen Negative Negative 02/22/2025 8:44 AM EDT [facility] Blood Venous blood specimen / Unknown Venipuncture / Unknown 02/22/2025 7:18 AM EDT 02/22/2025 7:48 AM EDT us Edil Kiran MD LAB BLOOD ORDERABLES Final Resul t Performing Organization Address [facility] de Phone Number [facility] [address] [place] [address] * (ABNORMAL) Protime-INR (02/22/2025 7:18 AM EDT) Prothrombin Time 18.7(H) 12.0 - 14.3 sec LAB COAGULATION METHOD 02/22/2025 8:04 AM EDT [facility] INR 1.6(H) 0.9 - 1.1 LAB COAGULATION METHOD 02/22/2025 8:04 AM EDT [facility] Blood Venous blood specimen / Unknown Venipuncture / Unknown 02/22/2025 7:18 AM EDT 02/22/2025 7:46 AM EDT Narrative [facility] - 02/22/2025 8:04 AM EDT [...] MD LAB BLOOD ORDERABLES Final Resul t [facility] [address] [place] [address] * (ABNORMAL) Hemogram (CBC) (02/22/2025 7:18 AM EDT) WBC Count 2.35(L) 3.70 - 10.30 10*3/uL LAB HEMATOLOGY METHOD 02/22/2025 9:33 AM EDT [facility] RBC Count 3.33(L) 3.90 - 5.20 10*6/uL LAB HEMATOLOGY METHOD 02/22/2025 9:33 AM EDT [facility] HGB 10.2(L) 11.2 - 15.7 g/dL LAB HEMATOLOGY METHOD 02/22/2025 9:33 AM EDT [facility] HCT 31.8(L) 34.0 - 45.0 % LAB HEMATOLOGY METHOD 02/22/2025 9:33 AM EDT [facility] Platelet Count 75(L) 155 - 369 10*3/uL LAB HEMATOLOGY METHOD 02/22/2025 9:33 AM EDT [facility] MCV 96 79 - 98 fL LAB HEMATOLOGY METHOD 02/22/2025 9:33 AM EDT [facility] MCH 30.6 26.0 - 32.0 pg LAB HEMATOLOGY METHOD 02/22/2025 9:33 AM EDT [facility] MCHC 32.1 30.7 - 35.5 g/dL LAB HEMATOLOGY METHOD 02/22/2025 9:33 AM EDT [facility] RDW 15.7(H) 11.5 - 14.5 % LAB HEMATOLOGY METHOD 02/22/2025 9:33 AM EDT [facility] MPV 10.5 8.8 - 12.5 fL LAB HEMATOLOGY METHOD 02/22/2025 9:33 AM EDT [facility] nRBC 0.0 <=0.0 per 100 WBCs LAB HEMATOLOGY METHOD 02/22/2025 9:33 AM EDT [facility] Blood Venous blood specimen / Unknown Venipuncture / Unknown 02/22/2025 7:18 AM EDT 02/22/2025 7:41 AM EDT us Edil Kiran MD LAB BLOOD ORDERABLES Final Resul t [facility] [address] [place] [address] * (ABNORMAL) Comprehensive metabolic panel (02/22/2025 7:18 AM EDT) Glucose, Plasma 283(H) 74 - 99 mg/dL 02/22/2025 8:16 AM EDT [facility] BUN, Plasma 30(H) 8 - 23 mg/dL 02/22/2025 8:16 AM EDT [facility] Creatinine, Plasma 2.54(H) 0.60 - 1.10 mg/dL 02/22/2025 8:16 AM EDT [facility] BUN/Creatinine Ratio 12 02/22/2025 8:16 AM EDT [facility] Sodium, Plasma 137 136 - 145 mmol/L 02/22/2025 8:16 AM EDT [facility] Potassium, Plasma 4.3 3.6 - 4.9 mmol/L 02/22/2025 8:16 AM EDT [facility] Chloride, Plasma 105 97 - 107 mmol/L 02/22/2025 8:16 AM EDT [facility] CO2, Plasma 24 22 - 29 mmol/L 02/22/2025 8:16 AM EDT [facility] Anion Gap 8 6 - 16 mmol/L 02/22/2025 8:16 AM EDT [facility] Total Calcium, Plasma 8.6(L) 8.9 - 10.2 mg/dL 02/22/2025 8:16 AM EDT [facility] Total Protein 7.2 6.3 - 7.9 g/dL 02/22/2025 8:16 AM EDT [facility] Albumin, Plasma 2.9(L) 3.5 - 5.2 g/dL 02/22/2025 8:16 AM EDT [facility] AST, Plasma 37(H) 10 - 35 U/L 02/22/2025 8:16 AM EDT [facility] ALT, Plasma 15 10 - 35 U/L 02/22/2025 8:16 AM EDT [facility] Alkaline Phosphatase, Plasma 121 46 - 142 U/L 02/22/2025 8:16 AM EDT [facility] Total Bilirubin, Plasma 0.9 0.2 - 1.1 mg/dL 02/22/2025 8:16 AM EDT [facility] eGFRcr 20.9 mL/min/1.7 3m*2 02/22/2025 8:16 AM EDT [facility] Comment:Reported eGFRcr in m L/min/1.73m2 is based the CKD-EPI 2020 equation that does not use a race coefficient. Blood Venous blood specimen / Unknown Venipuncture / Unknown 02/22/2025 7:18 AM EDT 02/22/2025 7:47 AM EDT us Edil Kiran MD LAB BLOOD ORDERABLES Final Resul t [facility] [address] [place] [address] * (ABNORMAL) Hemoglobin A1c (01/24/2016 1:47 PM [...] MEDICAID WELLCARE MEDICARE WELLCARE MEDICAID Care Teams Carbonation Equipment Operator Relationship Specialty Start Date End Date Monika Hernandez APRN [address] [place] [address] PCP - General 01/19/25 Sary Brannon APRN [address] [facility] [address] [place] [address] Referring Physician Gastroenterology 01/07/25
--- OUTSIDE RECORDS SUMMARY | 2025-05-06 08:30 | XMS_ITS | Encounter Summary ---
Author Organization Healthcare Address [address] [place] [address] Care Team Providers Care Food Taster Name Role Phone Larry Bedolla MD Primary Care Provider + [phone] Sary Brannon APRN Unavailable [phone] Monika Hernandez APRN Primary Care Provider + [phone] Encounter Details Date Type Department Care Team (Late st Contact Info) Description 10/26/2024 Orders Only External Location [address] [place] [address] Provider, External Social History Tobacco Use Types [...] documented as of this encounter Care Teams Food Taster Relationship Specialty Start Date End Date Larry Bedolla MD [address] [place] [address] PCP - General 12/08/20 01/18/25 Monika Hernandez APRN [address] [place] [address] PCP - General 01/19/25 Sary Brannon APRN [address] [facility] [address] [place] [address] Referring Physician Gastroenterology 01/07/25 documented as of this encounter
--- OUTSIDE RECORDS SUMMARY | 2025-05-06 08:30 | XMS_ITS | Encounter Summary ---
Author Organization Healthcare Address [address] [place] [address] Care Team Providers Care Office Machines Teacher Name Role Phone Larry Bedolla MD Primary Care Provider + [phone] Sary Brannon APRN Unavailable [phone] Monika Hernandez APRN Primary Care Provider + [phone] Encounter Details Date Type Department Care Team (Late st Contact Info) Description 11/30/2024 Orders Only External Location [address] [place] [address] Provider, External Social History Tobacco Use Types [...] documented as of this encounter Care Teams Office Machines Teacher Relationship Specialty Start Date End Date Larry Bedolla MD [address] [place] [address] PCP - General 12/08/20 01/18/25 Monika Hernandez APRN [address] [place] [address] PCP - General 01/19/25 Sary Brannon APRN [address] [facility] [address] [place] [address] Referring Physician Gastroenterology 01/07/25 documented as of this encounter
--- OUTSIDE RECORDS SUMMARY | 2025-05-06 08:30 | XMS_ITS ---
Author Organization Healthcare Address [address] [place] [address] Care Team Providers Care Canning Machine Operator Name Role Phone Sary Brannon APRN Unavailable [phone] Monika Hernandez APRN Primary Care Provider [phone] Transplant Episode Liver Candidate [facility] ([place], [place]) - JOSÉ LUIS Referred on 01/07/2025 Marked as Active on 01/07/2025 Liver CoordinatorMoraima Centeno RN Fax: N/A Email: N/A Scores Score Value Updated Expires Exceptions/Saloni sons CPRA Not available MELD (Calc) 22 02/22/2025 Care Team Name Role Phone Fax Email Moraima Centeno RN Liver Coordinator [phone] N/A N/A Sary Brannon APRN Referring Physician [phone] N/A Gem Clark Labor Relations Specialist [phone] N/A N/A Edil Kiran MD Surgeon [phone] N/A Events Pre-Transplant Referred: 01/07/2025 Committee: 02/28/2025
--- NOTE | 2025-05-06 08:37 | US_ITS ---
FINAL REPORT CLINICAL HISTORY: ASCITES -- DR. MAGDALENO WHITEHEAD -- RT SIDE -- 7150 ML REMOVED FINDINGS: ULTRASOUND-GUIDED PARACENTESIS HISTORY: Abdominal pain and distention TECHNIQUE: The right abdomen was prepped and routine sterile fashion. Appropriate pocket was localized for drainage. The patient was prepped and draped in routine fashion. Local anesthesia was achieved with 1% lidocaine. Using imaging guidance with images acquired, an 18-gauge sheath needle was directed into the peritoneal fluid. Approximately 7.15 liters of yellow serous fluid was aspirated. No fluid was sent for laboratory analysis. IMPRESSION: Successful ultrasound guided therapeutic paracentesis Authenticated and ERN
[2025-05-06 09:06] VITALS: BMI 26.6
[2025-05-06 09:20] LABS: Creatinine Clearance Estimated 32 mL/min (50-200); Creatinine,Serum 2.20 mg/dl (0.52-1.04); Estimated Glomerular Filt Rate 23 ml/min (>60); GFR (African American) 27 ML/MIN (>60)
[2025-05-06] MEDS: ALBUMIN HUMAN 12.5 GM/50 ML BAG IV ×5 (10:24→12:32)
[2025-05-06 10:25] VITALS: BP 137/68; PULSE 70; RESP 20; TEMP 36.6; O2SAT 97
[2025-05-06 11:00] VITALS: BP 128/71; PULSE 75
[2025-05-06 11:30] VITALS: BP 124/65; PULSE 71
[2025-05-06 12:00] VITALS: BP 131/74; PULSE 74
[2025-05-06 12:30] VITALS: BP 130/72; PULSE 70
[2025-05-06 13:00] VITALS: BP 128/69; PULSE 76
[2025-05-06] MEDS: SODIUM CHLORIDE 0.9% 10ML FLUSH SYRINGE 10 ML IV (13:00)
== END 2025-05-06 23:59 | disposition home or self-care (01) ==
LOC: RAD 08:25 → INF 09:58
PROVIDERS: PCP Family Medicine; Visit Provider Nurse Practitioner Family
DX: R18.8 Other ascites (principal); R77.0 Abnormality of albumin
CPT/HCPCS: 49083; 82565; 96365; 96366; P9047

== ENCOUNTER 2025-05-30 06:09 | Outpatient (CLI) | payer MEDICARE, MEDICAID, SELFPAY ==
--- OUTSIDE RECORDS SUMMARY | 2018-11-16 05:00 | XMS_ITS | Continuity of Care Document ---
Author Organization [facility] Address [address] [place] [phone] Phone Care Team Providers Care Mirror Machine Feeder Name Role Phone Dane Pink MD Unavailable [...] Provider Providers Copied on Encounter Connor Cameron [facility], [address] [place] [address], [id number], tel:[phone] JENNIFER Torres [place] No Information 9 Apryl Vela. [address] [place] [address], [id number] , . tel:[phone] OFFICE/OUTPA TIENT VISIT, EST Connor Cameron [facility], [address] [place] [address], [address] [place] [address], tel:[phone] [place] inflammation ck OS (chief complaint) Iritis, recurrent, left eye 9 Apryl Vela. [address] [place] [address], [address] [place] [address] , . tel:[phone] Referring Provider: Self Referred Jose C Connor Cameron [facility], [address] [place] [address], [id number], tel:[phone] JENNIFER Torres [place] Anterior Seg ck (chief complaint) Iritis, recurrent, left eye 9 Apryl Vela. [address] [place] [address], [id number] , . tel:[phone] Referring Provider: Maria Teresa Santos, [employer] [address] [place] [address], [facility]. tel:[phone] Family History Family Member Type Diagnosis Age At Onset Problem (finding) Family history of Diabe reynold mellitus Problem (finding) Family history of Cardi ovascular disease Problem (finding) Family history of glauc haroon Payers Payer name Insurance type Covered republican ID Authoriza tion(s) Medicare [facility] [id number] Social History Type Description Quantity Date Captured [...]
--- NOTE | 2025-05-30 | CA_ITS ---
APPROVED REPORT Exam: Pharmacologic Technologist: Iman Gibosn Stress Nurse: Julee BOWMAN, RN Ht: 5 ft 7 in Wt: 159 lbs BSA: 1.83 m2 HR: 105 bpm BP: 149/90 mmHg Indications: Coronary artery diisease, shortness of breath Stress Test Details Test: Lexiscan HR Resting HR: 105 bpm Max Heart Rate (APMHR): 157.513046 bpm Max HR Achieved: 108 bpm Target HR (85% APMHR): 133.682382 bpm % of APMHR: 68.79 Recovery HR: 105 bpm BP Resting BP: 149.0/90.0 mmHg Max BP: 159.0/75.0 mmHg Recovery BP: 155.0/76.0 mmHg ECG Resting ECG: Sinus rhythm Stress ECG Conclusion Symptoms: Nausea Arrhythmias/Ectopy: None ST-T Changes: Less than0.[address] segment changes. Conclusion: Nondiagnostic ECG/Lexiscan. Electronically signed by : Courtney Ramesh MD 06/01/2025 00:56:18
--- OUTSIDE RECORDS SUMMARY | 2025-05-30 06:12 | XMS_ITS | Clinical Summary ---
Author Organization [employer] ([place], [place], [place], [place], [place]) Address [address] [place] [address] Care Team Providers Care Deputy Editor In Chief Name Role Phone Provider, Not In System FOOTWEAR PRODUCTION MACHINE OPERATOR Primary Care Provid er Unavailable Allergies No known active allergies Medications hydrOXYzine [...] the past 12 months, has t he [employer], gas, oil, or water company threatened to [...] Do you speak a language other than [place]ian at [facility]? No 11/30/2024 [...] 1-dose series) 2022 Medicare IPPE (Welcome to [place] [facility]) [id number] 07/28/2024 COVID-19 VACCINE ( season) [...] Resul t [facility] [address] [phone] from Last 3 Months or Most Recently Relevant to Health Maintenance Insurance [facility] Advance Directives For more information, please contact: [phone] * Full Code (Latest Code Status on File) Date Activated Date Inactivated Comments 11/30/2024 2:06 AM 12/14/2024 6:30 PM Care Teams Deputy Editor In Chief Relationship Specialty Start Date End Date Provider, Not In System, ÁNGEL LONG PCP - General 12/14/24
--- OUTSIDE RECORDS SUMMARY | 2025-05-30 06:12 | XMS_ITS | Referral Summary ---
Author Organization [employer] ([place], [place], [place], [place], [place]) Address [address] [place] [address] Care Team Providers Care Machine Operator Hop Picker Name Role Phone Provider, Not In System DIGITAL MARKETING SPECIALIST Primary Care Provid er Unavailable Allergies No [...] the past 12 months, has t he [employer], gas, oil, or water company threatened to [...] your living situation today? I have a [facility] place to live 11/30/2024 Think about [...] speak a language other than [place]uneian at [facility]? No 11/30/2024 [...] - 5.6 % 11/30/2024 9:17 AM EDT [facility] Comment: Hemoglobin A1C levels are related to mean glucose during the preceding 2-3 months. Less than 7% demonstrates glycemic control in diabetic patients. Hemoglobin AlC % Suggested Diagnosis > or = 6.5 Diabetic 5.7 - 6.4 Prediabetic <5.7 Non-diabetic eAVG Glucose 93.93 70 - 126 mg/dL 11/30/2024 9:17 AM EDT [facility] Blood Venipuncture / Unknown 11/30/2024 8:20 AM EDT 11/30/2024 9:07 AM EDT us Mikhail Hurtado MD LAB BLOOD ORDERABLES Final Resul t [facility] [address] [phone] from Last 3 Months or Most Recently Relevant to Health Maintenance Insurance [facility] Advance Directives For more information, please contact: [phone] * Full Code (Latest Code Status on File) Date Activated Date Inactivated Comments 11/30/2024 2:06 AM 12/14/2024 6:30 PM Care Teams Machine Operator Hop Picker Relationship Specialty Start Date End Date Provider, Not In System, ÁNGEL LONG PCP - General 12/14/24
--- OUTSIDE RECORDS SUMMARY | 2025-05-30 06:12 | XMS_ITS | Encounter Summary ---
Author Organization Healthcare Address [address] [place] [address] Care Team Providers Care Supervisor Quality Control Name Role Phone Larry Bedolla MD Primary Care Provider + [phone] Sary Brannon APRN Unavailable [phone] Monika Hernandez APRN Primary Care Provider + [phone] Reason for Visit * Reason Comments Med Refill Encounter Details Date Type Department Care Team (Late st Contact Info) Description 10/20/2023 Refill [facility] [address] [place] [address] Luis Campo MD [address] [address] CKD (chronic kidney disease) stage 2, GFR 60-89 ml/min; Microalbuminuria; Coronary artery disease involving [place] heart with angina pectoris and documented spasm, unspecified vessel or lesion type (CMS/[facility], [facility]) Social History Tobacco Use Types Packs/Day [...] (mild) Microalbuminuria Proteinuria Coronary artery disease involving [place] heart with angina pectoris and documented spasm, unspecified vessel or lesion type documented in this encounter Additional Health Concerns Assessment Noted Time A fall risk assessment has been complete d for the patient 01/02/2022 1:17 PM EDT A Body Mass Index follow-up plan has been documented for the patient 11/13/2022 11:41 AM EDT documented as of this encounter Care Teams Supervisor Quality Control Relationship Specialty Start Date End Date Larry Bedolla MD [address] [place], [place] [address] PCP - General 12/08/20 01/18/25 Monika Hernandez APRN [address] [place], [place] [id number] PCP - General 01/19/25 Sary Brannon APRN [facility] [address] [place], [place] [address] Referring Physician Gastroenterology 01/07/25 documented as of this encounter
--- OUTSIDE RECORDS SUMMARY | 2025-05-30 06:12 | XMS_ITS | Data Portability ---
Author Organization [facility] Address [address] [place] [address] Assessment No assessment recorded. Plan of Treatment Reminders Order Date Submit Date Provider Last Modified By Organization Details Last Modified Time Details Appointments None recorded. Lab microalbumi n/creatinin e, mass ratio, urine 2023 024 [facility] (Lab), [address] [facility] [address], [place], [address], 5 10:22:00 HbA1c (hemoglobin A1c), blood 2023 024 [facility] ([facility] [address] [facility], [place], [address], 5 10:21:59 CMP, serum or plasma 2023 024 [facility] (Lab), [address], [place], [address], 5 10:21:59 CBC w/ auto diff 2023 024 [facility] (Lab), [address], [place], [address], 5 10:21:59 lipid panel, serum 2023 024 [facility] (Lab), [address], [place], [address], 5 10:22:00 CBC w/ auto diff 2022 023 [facility] Nguyenjillian, [address], [address], [place], [address], 3 13:06:54 HbA1c (hemoglobin A1c), blood 2022 023 A[facility] Leroydanilo, [address], [address], [place], [address], 3 13:06:57 C-peptide, serum 2022 023 A[facility] Leroydanilo, [address], [address], [place], [address], 3 13:06:56 CMP, serum or plasma 2022 023 A[facility] Leroydanilo, [address], [place], [place], [address], 3 13:06:55 microalbumi n/creatinin e, mass ratio, urine 2022 023 [facility] Nguyenjillian, [address], [place], [place], [address], 3 13:06:56 CMP, serum or plasma 2022 023 A[facility] Leroydanilo, [address], [place] [place], [place], [address], 3 11:08:27 lipid panel, serum 2022 023 B[facility] Labdanilo, [address], [place], [place], [address], 3 11:08:28 HbA1c (hemoglobin A1c), blood 2022 023 A[facility] Leroydanilo, [address], [place] [place], [place], [address], 3 11:08:29 CBC w/ auto diff 2022 023 A[facility] Leroydanilo, [address], [place] [place], [place], [address], 3 11:08:27 HbA1c (hemoglobin A1c), blood 2021 022 [facility] Greg, [address], [place] [place], [place], [address], 2 11:07:51 CMP, serum or plasma 2021 022 A[facility] Greg, [address], [place] [place], [place], [address], 2 11:07:49 CBC w/ auto diff 2021 022 A[facility] Greg, [address], [address], [place], [address], 2 11:07:48 lipid panel, serum 2021 022 A[facility] Greg, [address], [address], [place], [address], 2 11:07:50 albumin/cre atinine, mass ratio, urine 2021 022 ABESAM Garza, [address], [address], [place], [address], 2 11:07:50 C-peptide, serum 2021 022 A[facility] Garza, [address], [address], [place], [address], 2 11:07:51 Referral None recorded. Procedures None recorded. Surgeries None recorded. Imaging None recorded. Medication Orders Mounjaro 2.5 mg/0.5 mL subcutaneou s pen injector 2023 024 [facility], [address] [address] [place], [id number], 4 16:05:05 Glucagon Emergency Kit 1 mg solution for injection 2022 023 [facility], [address] [place] [address] [place], [id number], 3 13:31:18 Fiasp U-100 Insulin 100 unit/mL subcutaneou s solution 2022 023 [facility], [facility] [address] [place], [id number], 3 13:35:16 [facility]eflex 500 mg capsule [facility] [address] [place], [place] [address], [id number], 3 11:31:54 Patient TargetsNo targets recorded. Patient Instructions Encounter Date Encounter Id Patient Instructions Last Modified By Organization Details Last Modified Time 04/22/2023 [id number] learning about healthy weight efryman Not available 04/22/2023 10:44:48 body mass index: care instructions efrylos altos Not available 04/22/2023 10:44:48 Reason for Referral None Reported. Results Created Date Observation Date Name Description Value Unit Range Abnormal Flag Note LastModifiedBy Organization Detail LastModifiedTime 05/29/20 22 05/29/2022 CBC WITH DIFFE RENTI AL/PL ATELE T WBC 3.3 x10e3 /uL 3.4-10 .8 below low normal Not Available [facility] ([facility]) [address] [facility], [place], [address], 05/29/2022 11:07:48 05/29/20 22 05/29/2022 CBC WITH DIFFE RENTI AL/PL ATELE T RBC 4.52 x10e6 /uL 3.77-5 .28 Not Available [facility] ([facility]) [address] [facility], [place], [address], 05/29/2022 11:07:48 05/29/20 22 05/29/2022 CBC WITH DIFFE RENTI AL/PL ATELE T hemoglobin 14.0 g/dL 11.1-1 5.9 Not Available [facility] ([facility]) [address] [facility], [place], [address], 05/29/2022 11:07:48 05/29/20 22 05/29/2022 CBC WITH DIFFE RENTI AL/PL ATELE T hematocrit 44.3 % 34.0-4 6.6 Not Available [facility] ([facility]) [address] [facility], [place], [address], 05/29/2022 11:07:48 05/29/20 22 05/29/2022 CBC WITH DIFFE RENTI AL/PL ATELE T MCV 98 fL 79-97 above high normal Not Available [facility] ([facility]) [address] [place], [address], 05/29/2022 11:07:48 05/29/20 22 05/29/2022 CBC WITH DIFFE RENTI AL/PL ATELE T MCH 31.0 pg 26.6-3 3.0 Not Available [facility] ([facility]) [address] [place], [address], 05/29/2022 11:07:48 05/29/20 22 05/29/2022 CBC WITH DIFFE RENTI AL/PL ATELE T MCHC 31.6 g/dL 31.5-3 5.7 Not Available [facility] ([facility]) [address] [place], [address], 05/29/2022 11:07:48 05/29/20 22 05/29/2022 CBC WITH DIFFE RENTI AL/PL ATELE T RDW 13.9 % 11.7-1 5.4 Not Available [facility] ([facility]) [address] [facility], [place], [address], 05/29/2022 11:07:48 05/29/20 22 05/29/2022 CBC WITH DIFFE RENTI AL/PL ATELE T platelets 88 x10e3 /uL 150-45 0 alert low Actua l plate let count may be somew hat highe r than repor sharla due to aggre gatio n of plate lets in this sampl e. Not Available [facility] ([facility]) [address] [facility], [place], [address], 05/29/2022 11:07:48 05/29/20 22 05/29/2022 CBC WITH DIFFE RENTI AL/PL ATELE T neutrophils 62 % not estab. Not Available [facility] ([facility]) [address] [facility], [place], [address], 05/29/2022 11:07:48 05/29/20 22 05/29/2022 CBC WITH DIFFE RENTI AL/PL ATELE T lymphs 28 % not estab. Not Available [facility] ([facility]) [address] [facility], [place], [address], 05/29/2022 11:07:48 05/29/20 22 05/29/2022 CBC WITH DIFFE RENTI AL/PL ATELE T monocytes 8 % not estab. Not Available [facility] ([facility]) [address] [facility], [place], [address], 05/29/2022 11:07:48 05/29/20 22 05/29/2022 CBC WITH DIFFE RENTI AL/PL ATELE T eos 2 % not estab. Not Available [facility] ([facility]) [address] [facility], [place], [address], 05/29/2022 11:07:48 05/29/20 22 05/29/2022 CBC WITH DIFFE RENTI AL/PL ATELE T basos 0 % not estab. Not Available [facility] ([facility]) [address] [facility], [place], [address], 05/29/2022 11:07:48 05/29/20 22 05/29/2022 CBC WITH DIFFE RENTI AL/PL ATELE T immature cells POLYMER CHEMIST Not Available [facility] ([facility]) [address] [facility], [place], [address], 05/29/2022 11:07:48 05/29/20 22 05/29/2022 CBC WITH DIFFE RENTI AL/PL ATELE T neutrophils (absolute) 2.1 x10e3 /uL 1.4-7. 0 Not Available [facility] ([facility]) [address] [facility], [place], [address], 05/29/2022 11:07:48 05/29/20 22 05/29/2022 CBC WITH DIFFE RENTI AL/PL ATELE T lymphs (absolute) 0.9 x10e3 /uL 0.7-3. 1 Not Available [facility] ([facility]) [address] [place], [address], 05/29/2022 11:07:48 05/29/20 22 05/29/2022 CBC WITH DIFFE RENTI AL/PL ATELE T monocytes(ab solute) 0.3 x10e3 /uL 0.1-0. 9 Not Available [facility] ([facility]) [address] [place], [address], 05/29/2022 11:07:48 05/29/20 22 05/29/2022 CBC WITH DIFFE RENTI AL/PL ATELE T eos (absolute) 0.1 x10e3 /uL 0.0-0. 4 Not Available [facility] ([facility]) [address] [place], [address], 05/29/2022 11:07:48 05/29/20 22 05/29/2022 CBC WITH DIFFE RENTI AL/PL ATELE T baso (absolute) 0.0 x10e3 /uL 0.0-0. 2 Not Available [facility] ([facility]) [address] [facility], [place], [address], 05/29/2022 11:07:48 05/29/20 22 05/29/2022 CBC WITH DIFFE RENTI AL/PL ATELE T immature granulocytes 0 % not estab. Not Available [facility] ([facility]) [address] [facility], [place], [address], 05/29/2022 11:07:48 05/29/20 22 05/29/2022 CBC WITH DIFFE RENTI AL/PL ATELE T immature grans (abs) 0.0 x10e3 /uL 0.0-0. 1 Not Available [facility] ([facility]) [address] [facility], [place], [address], 05/29/2022 11:07:48 05/29/20 22 05/29/2022 CBC WITH DIFFE RENTI AL/PL ATELE T NRBC POLYMER CHEMIST Not Available [facility] ([facility]) [address] [facility], [place], [address], 05/29/2022 11:07:48 05/29/20 22 05/29/2022 CBC WITH DIFFE RENTI AL/PL ATELE T hematology comments: Note: Verif ied by micro scopi c exami natsimeon n. Not Available [facility] ([facility]) [address] [facility], [place], [address], 05/29/2022 11:07:48 05/29/20 22 05/29/2022 COMP. METAB OLIC PANEL (14) glucose 111 mg/dL 70-99 above high normal Not Available [facility] ([facility]) [address] [facility], [place], [address], 05/29/2022 11:07:49 05/29/20 22 05/29/2022 COMP. METAB OLIC PANEL (14) BUN 13 mg/dL 8-27 Not Available [facility] ([facility]) [address] [facility] [place], [address], 05/29/2022 11:07:49 05/29/20 22 05/29/2022 COMP. METAB OLIC PANEL (14) creatinine 0.93 mg/dL 0.57-1 .00 Not Available [facility] ([facility]) [address] [facility] [place], [address], 05/29/2022 11:07:49 05/29/20 22 05/29/2022 COMP. METAB OLIC PANEL (14) eGFR 70 mL/mi n/1.7 3 >59 Not Available [facility] ([facility]) [address] [facility] [place], [address], 05/29/2022 11:07:49 05/29/20 22 05/29/2022 COMP. METAB OLIC PANEL (14) BUN/creatini ne ratio 14 12-28 Not Available [facility] ([facility]) [address] [facility] [place], [address], 05/29/2022 11:07:49 05/29/20 22 05/29/2022 COMP. METAB OLIC PANEL (14) sodium 145 mmol/ L 134-14 4 above high normal Not Available [facility] ([facility]) [address] [facility] [place], [address], 05/29/2022 11:07:49 05/29/20 22 05/29/2022 COMP. METAB OLIC PANEL (14) potassium 4.5 mmol/ L 3.5-5. 2 Not Available [facility] ([facility]) [address] [facility] [place], [address], 05/29/2022 11:07:49 05/29/20 22 05/29/2022 COMP. METAB OLIC PANEL (14) chloride 106 mmol/ L 96-106 Not Available [facility] ([facility]) [address] [facility] [place], [address], 05/29/2022 11:07:49 05/29/20 22 05/29/2022 COMP. METAB OLIC PANEL (14) carbon dioxide, total 28 mmol/ L 20-29 Not Available [facility] ([facility]) [address] [facility], [place], [address], 05/29/2022 11:07:49 05/29/20 22 05/29/2022 COMP. METAB OLIC PANEL (14) calcium 9.4 mg/dL 8.7-10 .3 Not Available [facility] ([facility]) [address] [place] [place], [address], 05/29/2022 11:07:49 05/29/20 22 05/29/2022 COMP. METAB OLIC PANEL (14) protein, total 7.2 g/dL 6.0-8. 5 Not Available [facility] ([facility]) [address] [facility] [place], [address], 05/29/2022 11:07:49 05/29/20 22 05/29/2022 COMP. METAB OLIC PANEL (14) albumin 3.9 g/dL 3.8-4. 9 Not Available [facility] ([facility]) [address] [facility], [place], [address], 05/29/2022 11:07:49 05/29/20 22 05/29/2022 COMP. METAB OLIC PANEL (14) globulin, total 3.3 g/dL 1.5-4. 5 Not Available [facility] ([facility]) [address] [facility] [place], [address], 05/29/2022 11:07:49 05/29/20 22 05/29/2022 COMP. METAB OLIC PANEL (14) A/G ratio 1.2 1.2-2. 2 Not Available [facility] ([facility]) [address] [facility] [place], [address], 05/29/2022 11:07:49 05/29/20 22 05/29/2022 COMP. METAB OLIC PANEL (14) bilirubin, total 0.6 mg/dL 0.0-1. 2 Not Available [facility] ([facility]) [address] [place], [address], 05/29/2022 11:07:49 05/29/20 22 05/29/2022 COMP. METAB OLIC PANEL (14) alkaline phosphatase 164 IU/L 44-121 above high normal Not Available [facility] ([facility]) [address] [place], [address], 05/29/2022 11:07:49 05/29/20 22 05/29/2022 COMP. METAB OLIC PANEL (14) AST (SGOT) 50 IU/L 0-40 above high normal Not Available [facility] ([facility]) [address] [place], [address], 05/29/2022 11:07:49 05/29/20 22 05/29/2022 COMP. METAB OLIC PANEL (14) ALT (SGPT) 41 IU/L 0-32 above high normal Not Available [facility] ([facility]) [address] [place], [address], 05/29/2022 11:07:49 05/29/20 22 05/29/2022 LIPID PANEL cholesterol, total 170 mg/dL 100-19 9 Not Available [facility] ([facility]) [address] [place], [address], 05/29/2022 11:07:50 05/29/20 22 05/29/2022 LIPID PANEL triglyceride s 88 mg/dL 0-149 Not Available [facility] ([facility]) [address] [place], [address], 05/29/2022 11:07:50 05/29/20 22 05/29/2022 LIPID PANEL HDL cholesterol 53 mg/dL >39 Not Available [facility] ([facility]) [address] [facility], [place], [address], 05/29/2022 11:07:50 05/29/20 22 05/29/2022 LIPID PANEL VLDL cholesterol jenniffer 16 mg/dL 5-40 Not Available [facility] ([facility]) [address] [place], [address], 05/29/2022 11:07:50 05/29/20 22 05/29/2022 LIPID PANEL LDL chol calc ([facility]) 101 mg/dL 0-99 above high normal Not Available [facility] ([facility]) [address] [place], [address], 05/29/2022 11:07:50 05/29/20 22 05/29/2022 LIPID PANEL comment: POLYMER CHEMIST Not Available [facility] ([facility]) [address] [place], [address], 05/29/2022 11:07:50 05/29/20 22 05/29/2022 ALBUM IN/CR EATIN INE RATIO ,URIN E creatinine, urine 147.7 mg/dL not estab. Not Available [facility] ([facility]) [address] [place], [address], 05/29/2022 11:07:50 05/29/20 22 05/29/2022 ALBUM IN/CR EATIN INE RATIO ,URIN E albumin, urine 80.0 ug/mL not estab. Not Available [facility] ([facility]) [address] [place], [address], 05/29/2022 11:07:50 05/29/20 22 05/29/2022 ALBUM IN/CR EATIN INE RATIO ,URIN E alb/creat ratio 54 mg/g_ creat 0-29 above high normal Blanka l: 0 - 29 Moder ately incre ased: 30 - 300 Sever lemuel incre ased: >300 Not Available [facility] ([facility]) [address] [place], [address], 05/29/2022 11:07:50 05/29/20 22 05/29/2022 HEMOG LOBIN A1C hemoglobin A1C 10.7 % 4.8-5. 6 above high normal Predi abete s: 5.7 - 6.4 Diabe reynold: >6.4 Glyce eve contr ol for adult s with diabe reynold: <7.0 Not Available [facility] ([facility]) [address] [facility], [place], [address], 05/29/2022 11:07:51 05/29/20 22 05/29/2022 C-PEP TIDE, SERUM C-peptide, serum 3.2 NG/mL 1.1-4. 4 C-Pep tide refer ence inter rimma is for fasti ng patie nts. Not Available [facility] ([facility]) [address] [facility], [place], [address], 05/29/2022 11:07:51 05/29/20 22 05/29/2022 PLESRUTHI E NOTE please note Commen t The date and/o r time of colle ction was not indic ated on the requi sitio n as requi red by state and [place] law. The date of recei pt of the speci men was used as the colle ction date if not suppl ied. Not Available [facility] ([facility]) [address] [facility], [place], [address], 05/29/2022 11:07:52 09/03/19 23 09/04/2022 CBC WITH DIFFE RENTI AL/PL ATELE T WBC 3.4 x10e3 /uL 3.4-10 .8 Not Available [facility] ([facility]) [address] [facility], [place], [address], 09/04/2022 11:08:26 09/03/19 23 09/04/2022 CBC WITH DIFFE RENTI AL/PL ATELE T RBC 4.18 x10e6 /uL 3.77-5 .28 Not Available [facility] ([facility]) [address] [facility], [place], [address], 09/04/2022 11:08:26 09/03/19 23 09/04/2022 CBC WITH DIFFE RENTI AL/PL ATELE T hemoglobin 13.2 g/dL 11.1-1 5.9 Not Available [facility] ([facility]) [address] [facility], [place], [address], 09/04/2022 11:08:26 09/03/19 23 09/04/2022 CBC WITH DIFFE RENTI AL/PL ATELE T hematocrit 39.4 % 34.0-4 6.6 Not Available [facility] ([facility]) [address] [facility], [place], [address], 09/04/2022 11:08:26 09/03/19 23 09/04/2022 CBC WITH DIFFE RENTI AL/PL ATELE T MCV 94 fL 79-97 Not Available [facility] ([facility]) [address] [place], [address], 09/04/2022 11:08:26 09/03/19 23 09/04/2022 CBC WITH DIFFE RENTI AL/PL ATELE T MCH 31.6 pg 26.6-3 3.0 Not Available [facility] ([facility]) [address] [place], [address], 09/04/2022 11:08:26 09/03/19 23 09/04/2022 CBC WITH DIFFE RENTI AL/PL ATELE T MCHC 33.5 g/dL 31.5-3 5.7 Not Available [facility] ([facility]) [address] [place], [address], 09/04/2022 11:08:26 09/03/19 23 09/04/2022 CBC WITH DIFFE RENTI AL/PL ATELE T RDW 13.9 % 11.7-1 5.4 Not Available [facility] ([facility]) [address] [facility], [place], [address], 09/04/2022 11:08:26 09/03/19 23 09/04/2022 CBC WITH DIFFE RENTI AL/PL ATELE T platelets 89 x10e3 /uL 150-45 0 alert low Plate let count verif ied by exami natsimeon n of perip heral blood smear . Not Available [facility] ([facility]) [address] [facility], [place], [address], 09/04/2022 11:08:26 09/03/19 23 09/04/2022 CBC WITH DIFFE RENTI AL/PL ATELE T neutrophils 58 % not estab. Not Available [facility] ([facility]) [address] [facility], [place], [address], 09/04/2022 11:08:26 09/03/19 23 09/04/2022 CBC WITH DIFFE RENTI AL/PL ATELE T lymphs 32 % not estab. Not Available [facility] ([facility]) [address] [facility], [place], [address], 09/04/2022 11:08:26 09/03/19 23 09/04/2022 CBC WITH DIFFE RENTI AL/PL ATELE T monocytes 9 % not estab. Not Available [facility] ([facility]) [address] [facility], [place], [address], 09/04/2022 11:08:26 09/03/19 23 09/04/2022 CBC WITH DIFFE RENTI AL/PL ATELE T eos 1 % not estab. Not Available [facility] ([facility]) [address] [facility], [place], [address], 09/04/2022 11:08:26 09/03/19 23 09/04/2022 CBC WITH DIFFE RENTI AL/PL ATELE T basos 0 % not estab. Not Available [facility] ([facility]) [address] [facility], [place], [address], 09/04/2022 11:08:26 09/03/19 23 09/04/2022 CBC WITH DIFFE RENTI AL/PL ATELE T immature cells POLYMER CHEMIST Not Available [facility] ([facility]) [address] [facility], [place], [address], 09/04/2022 11:08:26 09/03/19 23 09/04/2022 CBC WITH DIFFE RENTI AL/PL ATELE T neutrophils (absolute) 1.9 x10e3 /uL 1.4-7. 0 Not Available [facility] ([facility]) [address] [facility], [place], [address], 09/04/2022 11:08:26 09/03/19 23 09/04/2022 CBC WITH DIFFE RENTI AL/PL ATELE T lymphs (absolute) 1.1 x10e3 /uL 0.7-3. 1 Not Available [facility] ([facility]) [address] [place], [address], 09/04/2022 11:08:26 09/03/19 23 09/04/2022 CBC WITH DIFFE RENTI AL/PL ATELE T monocytes(ab solute) 0.3 x10e3 /uL 0.1-0. 9 Not Available [facility] ([facility]) [address] [place], [address], 09/04/2022 11:08:26 09/03/19 23 09/04/2022 CBC WITH DIFFE RENTI AL/PL ATELE T eos (absolute) 0.0 x10e3 /uL 0.0-0. 4 Not Available [facility] ([facility]) [address] [place], [address], 09/04/2022 11:08:26 09/03/19 23 09/04/2022 CBC WITH DIFFE RENTI AL/PL ATELE T baso (absolute) 0.0 x10e3 /uL 0.0-0. 2 Not Available [facility] ([facility]) [address] [facility], [place], [address], 09/04/2022 11:08:26 09/03/19 23 09/04/2022 CBC WITH DIFFE RENTI AL/PL ATELE T immature granulocytes 0 % not estab. Not Available [facility] ([facility]) [address] [facility], [place], [address], 09/04/2022 11:08:26 09/03/19 23 09/04/2022 CBC WITH DIFFE RENTI AL/PL ATELE T immature grans (abs) 0.0 x10e3 /uL 0.0-0. 1 Not Available [facility] ([facility]) [address] [facility], [place], [address], 09/04/2022 11:08:26 09/03/19 23 09/04/2022 CBC WITH DIFFE RENTI AL/PL ATELE T NRBC POLYMER CHEMIST Not Available [facility] ([facility]) [address] [facility], [place], [address], 09/04/2022 11:08:26 09/03/19 23 09/04/2022 CBC WITH DIFFE RENTI AL/PL ATELE T hematology comments: Note: Verif ied by micro bossman laceyi natsimeon n. Not Available [facility] ([facility]) [address] [facility], [place], [address], 09/04/2022 11:08:26 09/03/19 23 09/04/2022 COMP. METAB OLIC PANEL (14) glucose 87 mg/dL 70-99 Not Available [facility] ([facility]) [address] [facility], [place], [address], 09/04/2022 11:08:27 09/03/19 23 09/04/2022 COMP. METAB OLIC PANEL (14) BUN 16 mg/dL 8-27 Not Available [facility] ([facility]) [address] [facility] [place], [address], 09/04/2022 11:08:27 09/03/19 23 09/04/2022 COMP. METAB OLIC PANEL (14) creatinine 1.02 mg/dL 0.57-1 .00 above high normal Not Available [facility] ([facility]) [address] [facility] [place], [address], 09/04/2022 11:08:27 09/03/19 23 09/04/2022 COMP. METAB OLIC PANEL (14) eGFR 63 mL/mi n/1.7 3 >59 Not Available [facility] ([facility]) [address] [facility] [place], [address], 09/04/2022 11:08:27 09/03/19 23 09/04/2022 COMP. METAB OLIC PANEL (14) BUN/creatini ne ratio 16 12-28 Not Available [facility] ([facility]) [address] [facility] [place], [address], 09/04/2022 11:08:27 09/03/19 23 09/04/2022 COMP. METAB OLIC PANEL (14) sodium 145 mmol/ L 134-14 4 above high normal Not Available [facility] ([facility]) [address] [facility] [place], [address], 09/04/2022 11:08:27 09/03/19 23 09/04/2022 COMP. METAB OLIC PANEL (14) potassium 4.3 mmol/ L 3.5-5. 2 Not Available [facility] ([facility]) [address] [facility] [place], [address], 09/04/2022 11:08:27 09/03/19 23 09/04/2022 COMP. METAB OLIC PANEL (14) chloride 108 mmol/ L 96-106 above high normal Not Available [facility] ([facility]) [address] [facility] [place], [address], 09/04/2022 11:08:27 09/03/19 23 09/04/2022 COMP. METAB OLIC PANEL (14) carbon dioxide, total 26 mmol/ L 20-29 Not Available [facility] ([facility]) [address], [place], [address], 09/04/2022 11:08:27 09/03/19 23 09/04/2022 COMP. METAB OLIC PANEL (14) calcium 9.2 mg/dL 8.7-10 .3 Not Available [facility] ([facility]) [address], [place], [address], 09/04/2022 11:08:27 09/03/19 23 09/04/2022 COMP. METAB OLIC PANEL (14) protein, total 7.0 g/dL 6.0-8. 5 Not Available [facility] ([facility]) [address] [facility], [place], [address], 09/04/2022 11:08:27 09/03/19 23 09/04/2022 COMP. METAB OLIC PANEL (14) albumin 3.8 g/dL 3.8-4. 9 Not Available [facility] ([facility]) [address] [facility], [place], [place], [address], 09/04/2022 11:08:27 09/03/19 23 09/04/2022 COMP. METAB OLIC PANEL (14) globulin, total 3.2 g/dL 1.5-4. 5 Not Available [facility] ([facility]) [address] [facility] [place], [address], 09/04/2022 11:08:27 09/03/19 23 09/04/2022 COMP. METAB OLIC PANEL (14) A/G ratio 1.2 1.2-2. 2 Not Available [facility] ([facility]) [address] [facility], [place], [address], 09/04/2022 11:08:27 09/03/19 23 09/04/2022 COMP. METAB OLIC PANEL (14) bilirubin, total 0.6 mg/dL 0.0-1. 2 Not Available [facility] ([facility]) [address] [place], [address], 09/04/2022 11:08:27 09/03/19 23 09/04/2022 COMP. METAB OLIC PANEL (14) alkaline phosphatase 153 IU/L 44-121 above high normal Not Available [facility] ([facility]) [address] [place], [address], 09/04/2022 11:08:27 09/03/19 23 09/04/2022 COMP. METAB OLIC PANEL (14) AST (SGOT) 55 IU/L 0-40 above high normal Not Available [facility] ([facility]) [address] [place], [address], 09/04/2022 11:08:27 09/03/19 23 09/04/2022 COMP. METAB OLIC PANEL (14) ALT (SGPT) 41 IU/L 0-32 above high normal Not Available [facility] ([facility]) [address] [place], [address], 09/04/2022 11:08:27 09/03/19 23 09/04/2022 LIPID PANEL cholesterol, total 150 mg/dL 100-19 9 Not Available [facility] ([facility]) [address] [place], [address], 09/04/2022 11:08:28 09/03/19 23 09/04/2022 LIPID PANEL triglyceride s 125 mg/dL 0-149 Not Available [facility] ([facility]) [address] [place], [address], 09/04/2022 11:08:28 09/03/19 23 09/04/2022 LIPID PANEL HDL cholesterol 37 mg/dL >39 below low normal Not Available [facility] ([facility]) [address] [facility], [place], [address], 09/04/2022 11:08:28 09/03/19 23 09/04/2022 LIPID PANEL VLDL cholesterol jenniffer 23 mg/dL 5-40 Not Available [facility] ([facility]) [address] [place] [place], [address], 09/04/2022 11:08:28 09/03/19 23 09/04/2022 LIPID PANEL LDL chol calc ([facility]) 90 mg/dL 0-99 Not Available [facility] ([facility]) [address] [place] [place], [address], 09/04/2022 11:08:28 09/03/19 23 09/04/2022 LIPID PANEL comment: POLYMER CHEMIST Not Available [facility] ([facility]) [address] [facility], [place], [address], 09/04/2022 11:08:28 09/03/19 23 09/04/2022 HEMOG LOBIN A1C hemoglobin A1C 7.5 % 4.8-5. 6 above high normal Predi abete s: 5.7 - 6.4 Diabe reynold: >6.4 Glyce eve contr ol for adult s with diabe reynold: <7.0 Not Available [facility] ([facility]) [address] [facility], [place], [address], 09/04/2022 11:08:29 04/22/20 23 04/23/2023 CBC WITH DIFFE RENTI AL/PL ATELE T WBC 2.4 x10e3 /uL 3.4-10 .8 alert low Not Available [facility] ([facility]) [address] [place], [address], 04/23/2023 13:06:54 04/22/20 23 04/23/2023 CBC WITH DIFFE RENTI AL/PL ATELE T RBC 4.19 x10e6 /uL 3.77-5 .28 Not Available [facility] ([facility]) [address] [facility], [place], [address], 04/23/2023 13:06:54 04/22/20 23 04/23/2023 CBC WITH DIFFE RENTI AL/PL ATELE T hemoglobin 13.7 g/dL 11.1-1 5.9 Not Available [facility] ([facility]) [address] [facility], [place], [address], 04/23/2023 13:06:54 04/22/20 23 04/23/2023 CBC WITH DIFFE RENTI AL/PL ATELE T hematocrit 41.2 % 34.0-4 6.6 Not Available [facility] ([facility]) [address] [facility], [place], [address], 04/23/2023 13:06:54 04/22/20 23 04/23/2023 CBC WITH DIFFE RENTI AL/PL ATELE T MCV 98 fL 79-97 above high normal Not Available [facility] ([facility]) [address] [facility], [place], [address], 04/23/2023 13:06:54 04/22/20 23 04/23/2023 CBC WITH DIFFE RENTI AL/PL ATELE T MCH 32.7 pg 26.6-3 3.0 Not Available [facility] ([facility]) [address] [place], [address], 04/23/2023 13:06:54 04/22/20 23 04/23/2023 CBC WITH DIFFE RENTI AL/PL ATELE T MCHC 33.3 g/dL 31.5-3 5.7 Not Available [facility] ([facility]) [address] [place], [address], 04/23/2023 13:06:54 04/22/20 23 04/23/2023 CBC WITH DIFFE RENTI AL/PL ATELE T RDW 13.9 % 11.7-1 5.4 Not Available [facility] ([facility]) [address] [facility], [place], [address], 04/23/2023 13:06:54 04/22/20 23 04/23/2023 CBC WITH DIFFE RENTI AL/PL ATELE T platelets 71 x10e3 /uL 150-45 0 alert low Plate let count verif ied by exami christiano n of perip heral blood smear . Not Available [facility] ([facility]) [address] [facility], [place], [address], 04/23/2023 13:06:54 04/22/20 23 04/23/2023 CBC WITH DIFFE RENTI AL/PL ATELE T neutrophils 62 % not estab. Not Available [facility] ([facility]) [address] [facility], [place], [address], 04/23/2023 13:06:54 04/22/20 23 04/23/2023 CBC WITH DIFFE RENTI AL/PL ATELE T lymphs 29 % not estab. Not Available [facility] ([facility]) [address] [facility], [place], [address], 04/23/2023 13:06:54 04/22/20 23 04/23/2023 CBC WITH DIFFE RENTI AL/PL ATELE T monocytes 9 % not estab. Not Available [facility] ([facility]) [address] [facility], [place], [address], 04/23/2023 13:06:54 04/22/20 23 04/23/2023 CBC WITH DIFFE RENTI AL/PL ATELE T eos 0 % not estab. Not Available [facility] ([facility]) [address] [place], [address], 04/23/2023 13:06:54 04/22/20 23 04/23/2023 CBC WITH DIFFE RENTI AL/PL ATELE T basos 0 % not estab. Not Available [facility] ([facility]) [address] [facility], [place], [address], 04/23/2023 13:06:54 04/22/20 23 04/23/2023 CBC WITH DIFFE RENTI AL/PL ATELE T immature cells POLYMER CHEMIST Not Available [facility] ([facility]) [address] [facility], [place], [address], 04/23/2023 13:06:54 04/22/20 23 04/23/2023 CBC WITH DIFFE RENTI AL/PL ATELE T neutrophils (absolute) 1.5 x10e3 /uL 1.4-7. 0 Not Available [facility] ([facility]) [address] [facility], [place], [address], 04/23/2023 13:06:54 04/22/20 23 04/23/2023 CBC WITH DIFFE RENTI AL/PL ATELE T lymphs (absolute) 0.7 x10e3 /uL 0.7-3. 1 Not Available [facility] ([facility]) [address] [facility], [place], [address], 04/23/2023 13:06:54 04/22/20 23 04/23/2023 CBC WITH DIFFE RENTI AL/PL ATELE T monocytes(ab solute) 0.2 x10e3 /uL 0.1-0. 9 Not Available [facility] ([facility]) [address] [facility], [place], [address], 04/23/2023 13:06:54 04/22/20 23 04/23/2023 CBC WITH DIFFE RENTI AL/PL ATELE T eos (absolute) 0.0 x10e3 /uL 0.0-0. 4 Not Available [facility] ([facility]) [address] [place], [address], 04/23/2023 13:06:54 04/22/20 23 04/23/2023 CBC WITH DIFFE RENTI AL/PL ATELE T baso (absolute) 0.0 x10e3 /uL 0.0-0. 2 Not Available [facility] ([facility]) [address] [facility], [place], [address], 04/23/2023 13:06:54 04/22/20 23 04/23/2023 CBC WITH DIFFE RENTI AL/PL ATELE T immature granulocytes 0 % not estab. Not Available [facility] ([facility]) [address] [facility], [place], [address], 04/23/2023 13:06:54 04/22/20 23 04/23/2023 CBC WITH DIFFE RENTI AL/PL ATELE T immature grans (abs) 0.0 x10e3 /uL 0.0-0. 1 Not Available [facility] ([facility]) [address] [facility], [place], [address], 04/23/2023 13:06:54 04/22/20 23 04/23/2023 CBC WITH DIFFE RENTI AL/PL ATELE T NRBC POLYMER CHEMIST Not Available [facility] ([facility]) [address] [facility], [place], [address], 04/23/2023 13:06:54 04/22/20 23 04/23/2023 CBC WITH DIFFE RENTI AL/PL ATELE T hematology comments: Note: Verif ied by tristen alvarado nAkhil Not Available [facility] ([facility]) [address] [place], [address], 04/23/2023 13:06:54 04/22/20 23 04/23/2023 COMP. METAB OLIC PANEL (14) glucose 322 mg/dL 70-99 above high normal Not Available [facility] ([facility]) [address] [place], [address], 04/23/2023 13:06:55 04/22/20 23 04/23/2023 COMP. METAB OLIC PANEL (14) BUN 26 mg/dL 8-27 Not Available [facility] ([facility]) [address] [facility] [place], [address], 04/23/2023 13:06:55 04/22/20 23 04/23/2023 COMP. METAB OLIC PANEL (14) creatinine 1.39 mg/dL 0.57-1 .00 above high normal Not Available [facility] ([facility]) [address] [facility] [place], [address], 04/23/2023 13:06:55 04/22/20 23 04/23/2023 COMP. METAB OLIC PANEL (14) eGFR 43 mL/mi n/1.7 3 >59 below low normal Not Available [facility] ([facility]) [address] [place] [place], [address], 04/23/2023 13:06:55 04/22/20 23 04/23/2023 COMP. METAB OLIC PANEL (14) BUN/creatini ne ratio 19 12-28 Not Available [facility] ([facility]) [address] [facility], [place], [address], 04/23/2023 13:06:55 04/22/20 23 04/23/2023 COMP. METAB OLIC PANEL (14) sodium 143 mmol/ L 134-14 4 Not Available [facility] ([facility]) [address] [facility] [place], [address], 04/23/2023 13:06:55 04/22/20 23 04/23/2023 COMP. METAB OLIC PANEL (14) potassium 5.1 mmol/ L 3.5-5. 2 Not Available [facility] ([facility]) [address] [facility] [place], [address], 04/23/2023 13:06:55 04/22/20 23 04/23/2023 COMP. METAB OLIC PANEL (14) chloride 103 mmol/ L 96-106 Not Available [facility] ([facility]) [address] [facility] [place], [address], 04/23/2023 13:06:55 04/22/20 23 04/23/2023 COMP. METAB OLIC PANEL (14) carbon dioxide, total 28 mmol/ L 20- Not Available [facility] ([facility]) [address] [place], [address], 04/23/2023 13:06:55 04/22/20 23 04/23/2023 COMP. METAB OLIC PANEL (14) calcium 9.4 mg/dL 8.7-10 .3 Not Available [facility] ([facility]) [address] [place], [address], 04/23/2023 13:06:55 04/22/20 23 04/23/2023 COMP. METAB OLIC PANEL (14) protein, total 7.4 g/dL 6.0-8. 5 Not Available [facility] ([facility]) [address] [place], [address], 04/23/2023 13:06:55 04/22/20 23 04/23/2023 COMP. METAB OLIC PANEL (14) albumin 3.9 g/dL 3.9-4. 9 Not Available [facility] ([facility]) [address] [place], [address], 04/23/2023 13:06:55 04/22/20 23 04/23/2023 COMP. METAB OLIC PANEL (14) globulin, total 3.5 g/dL 1.5-4. 5 Not Available [facility] ([facility]) [address] [place], [address], 04/23/2023 13:06:55 04/22/20 23 04/23/2023 COMP. METAB OLIC PANEL (14) A/G ratio 1.1 1.2-2. 2 below low normal Not Available [facility] ([facility]) [address] [place], [address], 04/23/2023 13:06:55 04/22/20 23 04/23/2023 COMP. METAB OLIC PANEL (14) bilirubin, total 0.6 mg/dL 0.0-1. 2 Not Available [facility] ([facility]) [address] [facility] [place], [address], 04/23/2023 13:06:55 04/22/20 23 04/23/2023 COMP. METAB OLIC PANEL (14) alkaline phosphatase 145 IU/L 44-121 above high normal Not Available [facility] ([facility]) [address] [place] [place], [address], 04/23/2023 13:06:55 04/22/20 23 04/23/2023 COMP. METAB OLIC PANEL (14) AST (SGOT) 45 IU/L 0-40 above high normal Not Available [facility] ([facility]) [address] [facility], [place], [address], 04/23/2023 13:06:55 04/22/20 23 04/23/2023 COMP. METAB OLIC PANEL (14) ALT (SGPT) 33 IU/L 0-32 above high normal Not Available [facility] ([facility]) [address] [place], [address], 04/23/2023 13:06:55 04/22/20 23 04/23/2023 ALBUM IN/CR EAT RATIO , RANDO M UR creatinine, urine 75.9 mg/dL not estab. Not Available [facility] ([facility]) [address] [place], [address], 04/23/2023 13:06:56 04/22/20 23 04/23/2023 ALBUM IN/CR EAT RATIO , RANDO M UR albumin, urine 4.9 ug/mL not estab. Not Available [facility] ([facility]) [address] [place], [address], 04/23/2023 13:06:56 04/22/20 23 04/23/2023 ALBUM IN/CR EAT RATIO , WESTON Hernández UR alb/creat ratio 6 mg/g_ creat 0-29 Blanka l: 0 - 29 Moder ately incre ased: 30 - 300 Sever lemuel incre ased: >300 Not Available [facility] ([facility]) [address] [facility], [place], [address], 04/23/2023 13:06:56 04/22/20 23 04/23/2023 INSUL IN AND C-PEP TIDE, SERUM insulin 92.0 uIU/m L 2.6-24 .9 above high normal Not Available [facility] ([facility]) [address] [facility], [place], [address], 04/23/2023 13:06:56 04/22/20 23 04/23/2023 INSUL IN AND C-PEP TIDE, SERUM C-peptide, serum 11.8 NG/mL 1.1-4. 4 above high normal C-Pep tide refer ence inter rimma is for fasti ng patie nts. Not Available [facility] ([facility]) [address] [facility], [place], [address], 04/23/2023 13:06:56 04/22/2004/23/2023 HEMOG LOBIN A1C hemoglobin A1C 7.4 % 4.8-5. 6 above high normal Predi abete s: 5.7 - 6.4 Diabe reynold: >6.4 Glyce eve contr ol for adult s with diabe reynold: <7.0 Not Available [facility] ([facility]) [address] [facility], [place], [address], 04/23/2023 13:06:57 05/31/20 22 05/31/2022 XR, chest , 2 view No observ ation [facility] ed[facility] [address], [place], [address], 06/04/2022 17:15:22 04/22/20 23 12/26/2021 MAMMO , diagn ostic , digit al, unila teral No observ ation record ed. [facility] (Med Record) [address], [place], [address], 04/22/2023 14:40:09 Result Notes None recorded. Problems Name Problem SNOMED Code Status Onset Date Resolution Date Notes Provider Name and Address Organization Details Recorded Time Type 2 diabetes mellitus 34306708 Active 2021 Ramónanali kristen, [employer] TECH[employer]ICIAN [address], [place], [address], [place] - [facility] 2 10:51:37 Hypertensive disorder 59911298 Active 2021 Ramónanali kristen, [employer] TECH[employer]IC[employer] [address], [place], [address], [place] [facility] 2 10:51:29 Chronic kidney disease stage 3 600806517 Active 2021 Ramónanali kristen, [employer] TECH[employer]ICIAN [address], [place], [address], [place] [facility] 2 10:51:25 Chronic back pain 765622013 Active 2021 Ramónanali kristen, [employer] TECH[employer]ICIAN [address], [place], [address], [place] [facility] 2 10:51:22 Heart disease 96112141 Active 2021 Ramóntiffanisavanah Rodriguezkristen, MANUFA[employer] PL[employer] TECHNICIAN [address], [place], [address], [place] - [facility] 2 10:51:27 [...] Not Available Not Available No t Available Vitals Date Recorded Body height Body mass index (BMI) Body weight Body temperature Heart rate Oxygen saturation Oxygen saturation in Arterial blood by Pulse oximetry Respiratory rate Systolic And Diastolic Provider Name and Address Organization Details Last Updated DateTime 3 170.18 cm 32.3 kg/m2 35943.0 3 g 97.6 [degF] 90 /min 95 % 95 % 18 /min 142/80 mm[Hg] Vero Delgado [place] - [facility] 3 11:31:24 Date Recorded Body height Body mass index (BMI) Body weight Oxygen saturation Oxygen saturation in Arterial blood by Pulse oximetry Respiratory rate Pain severity - 0-10 verbal numeric rating [Score] - Reported Heart rate Body temperature Systolic And Diastolic Provider Name and Address Organization Details Last Updated DateTime 4 170.18 cm 31.5 kg/m2 18382.7 7 g 98 % 98 % 18 /min 0 75 /min 98.1 [degF] 112/74 mm[Hg] Coretta Whitfield [place] - [facility] 4 15:15:06 Date Recorded Body height Body mass index (BMI) Body weight Body temperature Respiratory rate Oxygen saturation Oxygen saturation in Arterial blood by Pulse oximetry Heart rate Systolic And Diastolic Provider Name and Address Organization Details Last Updated DateTime 3 170.18 cm 32.4 kg/m2 76668.6 2 g 97.5 [degF] 18 /min 91 % 91 % 84 /min 136/78 mm[Hg] Vero Delgado [place] - [facility] 3 09:56:51 Date Recorded Body weight Body mass index (BMI) Body height Respiratory rate Oxygen saturation Oxygen saturation in Arterial blood by Pulse oximetry Heart rate Body temperature Systolic And Diastolic Provider Name and Address Organization Details Last Updated DateTime 2 17273.9 2 g 30.4 kg/m2 170.18 cm 18 /min 95 % 95 % 96 /min 97.5 [degF] 148/78 mm[Hg] Vero Delgado [place] - [facility] 2 10:14:48 Social History Question Answer Notes LastModified by Organizat ion Details LastModified Time Tobacco Smoking Status Never Smoker Vero [facility], [facility] [place] 05/28/2022 10:27:58 Do You Have An Advance Directive? No Information not available 05/28/2022 Are You Blind Or Do You Have Difficulty Seeing? Yes Blurry, Hard To See Far Away, Has Eye Dr. Hidalgo 05-29-[address] [facility] Information not available 05/28/2022 What Is Your [...] Or The Highest Degree You Have Received? JO82038-5 Information not available 05/28/2022 Have There Been Any Changes To Your Family Or Social Situation? No Information not available 05/28/2022 What Is The Fluoride Status Of Your Home? Unknown Information not available 05/28/2022 Do You Have A Medical Power Of Sharepoint Application Architect? No Information not available 05/28/2022 What Was [...] not available 05/28/2022 Are you able to walk independently without assistance or assistive devices? YESWOREST Information not available 05/28/2022 Do you have difficulty doing errands alone? No Information not available 05/28/2022 Are you able to care for yourself independently? Yes Information not available 05/28/2022 Do you have difficulty dressing, bathing, grooming, or toileting? No Information not available 05/28/2022 What is your exercise level? None Information not available 05/28/2022 Mental Status Question Answer Note LastModified by Organizat ion Details LastModified Time Do you feel stressed (tense, restless, nervous, or anxious, or unable to sleep at night)? TI3216-1 Information not available 05/28/2022 Do you have [...] quadrivalent, preservative 8 completed Vero Stears null, [place] - [facility] 09/03/2022 11:27:52 zoster recombinant 1 completed Vero Stears null, [place] - [facility] 09/03/2022 11:27:52 zoster recombinant 0 completed Vero Stears null, [place] - [facility] 09/03/2022 11:27:52 zoster recombinant 1 completed Vero Stears null, [place] - [facility] 09/03/2022 11:27:52 MMR 7 completed Vero Stears null, [place] - [facility] 09/03/2022 11:27:52 COVID-19, mRNA, LNP-S, PF, 100 mcg/0.5mL dose or 50 mcg/0.25mL dose 1 completed Vero Stears null, [place] - [facility] 09/03/2022 11:27:52 COVID-19, mRNA, LNP-S, PF, 100 mcg/0.5mL dose or 50 mcg/0.25mL dose 1 completed Vero Stears null, [place] - [facility] 09/03/2022 11:27:52 COVID-19, mRNA, LNP-S, PF, 100 mcg/0.5mL dose or 50 mcg/0.25mL dose 1 completed Vero Stears null, [place] - [facility] 09/03/2022 11:27:52 pneumococcal polysaccharide PPV23 0 completed Vero Stears null, [place] - [facility] 09/03/2022 11:27:52 Tdap 1 completed Vero Stears null, [place] - [facility] 09/03/2022 11:27:52 Pneumococcal conjugate PCV 13 6 completed Vero Stears null, [place] - [facility] 09/03/2022 11:27:52 Influenza, split virus, trivalent, preservative 8 completed Vero Stears null, [place] - [facility] 09/03/2022 11:27:52 Influenza, split virus, trivalent, preservative 7 completed Vero Stears null, [facility] [place] 09/03/2022 11:27:52 Influenza, split virus, trivalent, preservative 6 completed Vero Stears null, [facility] [place] 09/03/2022 11:27:52 Influenza, split virus, trivalent, PF 2 completed Evro Stears null, [facility] [place] 09/03/2022 11:27:52 Influenza, split virus, trivalent, PF 1 completed Vero Stears null, [facility] [place] 09/03/2022 11:27:52 Influenza, split virus, trivalent, PF 4 completed Vero Stears null, [facility] [place] 09/03/2022 11:27:52 Influenza, split virus, trivalent, PF 3 completed Vero Stears null, [facility] [place] 09/03/2022 11:27:52 Hep B, adult 2 completed Vero Stears null, [facility] [place] 09/03/2022 11:27:52 Hep A, adult 2 completed Vero Stears null, [facility] [place] 09/03/2022 11:27:52 Influenza, split virus, quadrivalent, PF 6 completed Vero Stears null, [facility] [place] 09/03/2022 11:27:52 Influenza, split virus, quadrivalent, PF 9 completed Vero Stears null, [facility] [place] 09/03/2022 11:27:52 Influenza, split virus, quadrivalent, PF 5 completed Vero Stears null, [facility] [place] 09/03/2022 11:27:52 Influenza, split virus, quadrivalent, PF 0 completed Vero Stears null, [facility] [place] 09/03/2022 11:27:52 Hep A-Hep B 2 completed Vero Delgado [place] - [facility] 09/03/2022 11:27:52 Past Encounters Encounter ID Performer Location Encounter Start Date Encounter Closed Date Diagnosis/Indication Diagnosis SNOMED-CT Code Diagnosis ICD10 Code Diagnosis IMO Codes Diagnosis Note [id number] Mary Henry [address] [address] 05/28/2022 09:58:35 05/28/2022 11:06:38 Chronic back pain 464962740 G89.29 Type 2 jose betes mellitus 46105279 Z79.4 omnipod ordereddm packet given to pt Hypertensive disorder 38 484733 I10 Heart disease 36870740 I 51.9 Chronic ki dney disease stage 3 172219118 N18.30 Diabetic foot ulcer 3710 03336 E13.047 [id number] Mary Henry [address] [address] 09/03/2022 10:47:25 09/03/2022 12:32:31 Chronic kidney disease stage 3 436749379 N18.30 Hypertensive disorder 38 066690 I10 Type 2 jose betes mellitus 78875749 Z79.4 continue with omnipod training, labs to obtain baseline Chronic back pain 848499 002 G89.29 Heart disease 73570453 I 51.9 [id number] Mary Henry [address] [address] 04/22/2023 09:29:27 04/22/2023 11:55:30 Type 2 diabetes mellitus 47248416 Z79.4 will train on omnipod tomorrow at 1130 Body mass index 30+ - obesity 984338102 Z68.32 32.4 Obesity 898843980 E66.9 Chronic ki dney disease stage 3 691162256 N18.30 Heart disease 57746348 I 51.9 Hypertensive disorder 38 363034 I10 Uncontroll ed type 2 diabetes mellitus 043604807 E11.65 [id number] Mary Henry [address] [address] 03/26/2024 14:50:04 03/26/2024 15:51:17 Heart murmur 89422019 R01.1 echosee cardiology on at 11if any issues go to ed Type 2 jose ghada mellitus 91822615 Z79.4 obtain copy of labs from her other pcp.long discussion about med Hypertensive disorder 38 774932 I10 continue meds Heart disease 16051171 I 51.9 follow up with cardiology Chronic ki dney disease stage 3 034634325 N18.30 labs Health Concerns Section Related Observation LastModified by Organization Detai ls LastModified Time None Recorded Concern Status LastModified by Organization Details LastModified Time None Recorded Advance Directives Directive N: Payers Insurance Date Sequence Insurance Name Policy Number Policy Deng Covered Member ID Deng Member ID Guarantor Name 09/27/2024 1 [employer] [place] (MEDICARE REPLACEMENT/ ADVANTAGE - HMO) Mary Coronel [id number] Mary Wilde Homer 09/27/2024 2 [employer] [place] ([place]ICA[place] H[place]) Mary Wilde Homer [id number] Mary Wilde Homer 09/27/2024 [employer] [place] [facility] (MEDICARE) Mary Wilde Homer [id number] Mary Wilde Homer 09/27/2024 [place] [facility] (MEDICAID) Mary Wilde Homer [id number] Mary Wilde Homer 05/01/2023 1 [place] Mary Wilde Homer [id number] Mary Wilde Homer Notes Date Note Type Note Provider Name and Address Organization Details Recorded Time 05/28/2022 text/html ROS as noted in the HPI Mary is a 62 year old female who presents to the office today for type 2 diabetes.Previous patient of Shiv states her last a1c was over 10.pt states even with the 4 injections she can not get her glucose under control.pt states she has a sore on her left foot on the 2nd toe Mayr Henry, MANUFACTURING PLANT TECHNICIAN [address], [place], [address], [facility] - [facility] 05/28/2022 14:18:03 09/03/2022 text/html Mary is a 62 year old female who presents to the office today for a 3 month follow up ondiabetes.pt states she has a appointment tomorrow for her training for omnipod insulin pump. pt states she has been watching her glucose and its been running 120-160 on most days Mary Henry APRN [address], [place], [address], [place] - [facility] 09/03/2022 13:33:38 04/22/2023 text/html Mary is a 63 year old female who presents to the office today for a diabetic follow up. pt states her glucose has been high. pt states she takes 5 shots per day and wears a dexcom. she has a omnipod but has not done thr training to get it started Mary Henry APRN [address], [place], [address], [place] - [facility] 05/01/2023 14:27:32 03/26/2024 text/html Diabetes F/UReported by PatientHPIFor review finger sticks, patient reportsfastin. For labs, patient reportslast a1c result: 7.1. For context, patient reportsseeing eye doctor regularly,checking feet regularly, andtaking aspirin daily. For associated symptoms, patient reportsno weight gain,no weight loss,no dizziness,no sweats,no headaches,no confusion,no increased thirst,no increased appetite,no increased urination,no blurred vision,no numbness of feet, andno calluses on feet. 63 yr old female presents for help with her omnipod update. She also wanted to discuss her ozempic. pt states she wants to change her ozempic due to what she hears on the tv and she is having stomach issues each time she eats Mary Henry APRN [address], [place], [address], [place] - [facility] 03/26/2024 16:02:49 OBGyn Episode No OBEpisode recorded.
--- OUTSIDE RECORDS SUMMARY | 2025-05-30 06:13 | XMS_ITS | Encounter Summary ---
Author Organization Healthcare Address [address] [place] [address] Care Team Providers Care Retoucher Name Role Phone Larry Bedolla MD Primary Care Provider + [phone] Sary Brannon APRN Unavailable [phone] Monika Hernandez APRN Primary Care Provider + [phone] Encounter Details Date Type Department Care Team (Late st Contact Info) Description 04/02/2017 Orders Only External Location [address] [place] [address] Provider, External Social History Tobacco Use Types [...] on filedocumented in this encounter Care Teams Retoucher Relationship Specialty Start Date End Date Larry Bedolla MD [address] [place] [address] PCP - General 12/08/20 01/18/25 Monika Hernandez APRN [address] [place] [address] PCP - General 01/19/25 Sary Brannon APRN 1210 [facility] [address] [place] [address] Referring Physician Gastroenterology 01/07/25 documented as of this encounter
--- OUTSIDE RECORDS SUMMARY | 2025-05-30 06:13 | XMS_ITS | Encounter Summary ---
Author Organization Healthcare Address [address] [place] [address] Care Team Providers Care Quality Control Lead Name Role Phone Larry Bedolla MD Primary Care Provider + [phone] Sary Brannon MACHINE SIZER Unavailable [phone] Monika Hernandez APRN Primary Care Provider [phone] Encounter Details Date Type Department Care Team (Late st Contact Info) Description 01/03/2025 Community [facility] [address] [place] [address] Sary Brannon, MACHINE SIZER [address] [place], [place] [id number] Social History Tobacco Use Types Packs/Day Years [...] documented as of this encounter Care Teams Quality Control Lead Relationship Specialty Start Date End Date Larry Bedolla MD [address] [place] [address] PCP - General 12/08/20 01/18/25 Monika Hernandez APRN [address] [place] [address] PCP - General 01/19/25 Sary Brannon APRN [address] [place] [address] Referring Physician Gastroenterology 01/07/25 documented as of this encounter
--- OUTSIDE RECORDS SUMMARY | 2025-05-30 06:13 | XMS_ITS | Encounter Summary ---
Author Organization Healthcare Address [address] [place] [address] Care Team Providers Care Women'S Garment Fitter Name Role Phone Larry Bedolla MD Primary Care Provider + [phone] Sary Brannon LEAD MAINTENANCE TECHNICIAN Unavailable [phone] Monika Hernandez APRN Primary Care Provider [phone] Reason for Visit * Reason Comments Med Refill Encounter Details Date Type Department Care Team (Late st Contact Info) Description 04/12/2021 [facility] [address] [place] [address] Lina Lowe, LEAD MAINTENANCE TECHNICIAN [address] [facility] [address] [place] [address] Social History Tobacco Use Types [...] on filedocumented in this encounter Care Teams Women'S Garment Fitter Relationship Specialty Start Date End Date Larry Bedolla MD [address] [place], [place] [id number] PCP - General 12/08/20 01/18/25 Monika Hernandez APRN [address] [place] [address] PCP - General 01/19/25 Sary Brannon APRN 1210 [facility] [address] [place] [address] Referring Physician Gastroenterology 01/07/25 documented as of this encounter
--- OUTSIDE RECORDS SUMMARY | 2025-05-30 06:13 | XMS_ITS | Encounter Summary ---
Author Organization Healthcare Address [address] [place] [address] Care Team Providers Care Camera Repairer Name Role Phone Larry Bedolla MD Primary Care Provider + [phone] Sary Brannon APRN Unavailable [phone] Monika Hernandez APRN Primary Care Provider + [phone] Encounter Details Date Type Department Care Team (Late st Contact Info) Description 11/30/2024 Orders Only External Location [address] [place] [address] Provider, External Social History Tobacco Use Types [...] documented as of this encounter Care Teams Camera Repairer Relationship Specialty Start Date End Date Larry Bedolla MD [address] [place] [address] PCP - General 12/08/20 01/18/25 Monika Hernandez APRN [address] [place] [address] PCP - General 01/19/25 Sary Brannon APRN 1210 [facility] [address] [place] [address] Referring Physician Gastroenterology 01/07/25 documented as of this encounter
--- OUTSIDE RECORDS SUMMARY | 2025-05-30 06:13 | XMS_ITS | Encounter Summary ---
Author Organization Healthcare Address [address] [place] [address] Care Team Providers Care Radiator Mechanic Name Role Phone Larry Bedolla MD Primary Care Provider + [phone] Sary Brannon APRN Unavailable [phone] Monika Hernandez APRN Primary Care Provider + [phone] Encounter Details Date Type Department Care Team (Late st Contact Info) Description 11/30/2024 Orders Only External Location [address] [place] [address] Provider, External Social History Tobacco Use Types [...] documented as of this encounter Care Teams Radiator Mechanic Relationship Specialty Start Date End Date Larry Bedolla MD [address] [place] [address] PCP - General 12/08/20 01/18/25 Monika Hernandez APRN [address] [place] [address] PCP - General 01/19/25 Sary Brannon APRN 1210 [facility] [address] [place] [address] Referring Physician Gastroenterology 01/07/25 documented as of this encounter
--- OUTSIDE RECORDS SUMMARY | 2025-05-30 06:13 | XMS_ITS | Clinical Summary ---
Author Organization Healthcare Address [address] [place] [address] Care Team Providers Care Fiber Machine Tender Name Role Phone Sary Brannon HEAD CHAR FILTER TANK TENDER Unavailable [phone] Monika Hernandez APRN Primary Care Provider [phone] Allergies No known active allergies Medications bisoprolol (Zebeta) 10 MG tablet Take 10 mg by mouth 1 (one) time each day. Active clopidogrel (Plavix) 75 MG tablet TAKE 1 TABLET BY MOUTH ONCE DAILY FOR PLATELET INHIBITOR Active cyclobenzaprine (Flexeril) 10 MG tablet 1 po TID prn muscle spasms Active FLUoxetine (PROzac) 20 MG capsule TAKE 3 CAPSULES BY MOUTH DAILY FOR DEPRESSION Active fluticasone (Flonase) 50 MCG/ACT nasal spray Administer 1 spray into each nostril as needed. Active BD Pen Needle Joyce 2nd Gen 32G X 4 MM misc USE TID WITH INJECTIONS Active UltiCare Insulin Syringe 31G X 5/16 1 ML misc USE WITH INJECTIONS THREE TIMES DAILY Active FreeStyle lancets USE TO TEST TWICE DAILY Active lisinopril 10 MG tablet Take 10 mg by mouth 1 (one) time each day. Active ondansetron ODT (Zofran-ODT) 4 MG disintegrating tablet every 8 hours as needed. Active traZODone (Desyrel) 50 MG tablet as needed. Active Trintellix 20 MG tablet Take 1 tablet by mouth 1 (one) time each day. Active glucose blood test strip USE TO TEST BID Active Glucose Blood (FREESTYLE LITE TEST ) TEST TWO TIMES A DAY Active FreeStyle lancets USE ONE LANCET TWICE DAILY ( PT MUST MAKE APPT FOR REFILLS) Active insulin syringe-needle U-100 31G X 12/10 0.3 mL misc 3 INJECTIONS DAILY Active HYDROcodone-aceta minophen ([place]) 10-325 MG tablet Active spironolactone (Aldactone) 25 MG tablet Take 0.5 tablets by mouth daily. Active furosemide (Lasix) 40 MG tablet Take by mouth 2 (two) times a day. Active Insulin Lispro (HUMALOG IJ) Inject as directed. Active dapagliflozin (Farxiga) 5 MG tabletIndications :CKD (chronic kidney disease) stage 2, GFR 60-89 ml/min,Microalbum inuria,Coronary artery disease involving [place] heart with angina pectoris and documented spasm, unspecified vessel or lesion type Take 1 tablet (5 mg total) by mouth 1 (one) time each day. 30 tablet 1 Active Additional Information Patient not taking.Reported on 02/22/2025 potassium chloride CR (Klor-Con M20) 20 MEQ ER tablet Active Ozempic, 0.25 or 0.5 MG/DOSE, 2 MG/3ML solution pen-injector Active gabapentin (Neurontin) 800 MG tablet Active NovoLOG MIX 70/30 FLEXPEN (70-30) 100 UNIT/ML injection pen Inject 5 Units under the skin as needed. Active metFORMIN XR (Glucophage-XR) 500 MG 24 hr tablet Take 1 tablet (500 mg) by mouth 1 (one) time each day with dinner. Active atorvastatin (Lipitor) 20 MG tablet Take 1 tablet by mouth nightly. Active bumetanide (Bumex) 2 MG tablet Take 1 tablet by mouth daily. Active gabapentin (Neurontin) 100 MG capsule Take 1 capsule by mouth 3 times a day. Active NovoLIN R 100 UNIT/ML injection vial Inject 5 Units under the skin as needed. Active lactulose (Enulose) 10 GM/15ML solution oral solution Take 15 mL by mouth twice a day. Active metOLazone (Zaroxolyn) 2.5 MG tablet Take 1 tablet by mouth daily. Active pantoprazole (Protonix) 40 MG EC tablet Take 1 tablet by mouth 2 times a day. Active Xifaxan 550 MG tablet Take 1 tablet by mouth 2 times a day. Active tamsulosin (Flomax) 0.4 MG 24 hr capsule Take 1 capsule by mouth nightly. Active ferrous sulfate 324 (65 Fe) MG EC tablet Take 1 tablet by mouth daily with breakfast. Do not crush, chew, or split. Active albuterol 108 (90 Base) MCG/ACT inhaler as needed. Active psyllium (Metamucil Smooth Texture) 58.6 % powder Take 1 packet by mouth daily. 1040 g Active Aspirin Low Dose 81 MG EC tablet TAKE 1 TABLET BY MOUTH ONCE A DAY 30 tablet 1 025 Active Aspirin Low Dose 81 MG EC tablet Take 1 tablet by mouth daily. 30 tablet 1 025 2024 Discontinued Active Problems Problem Noted Date Diagnosed Date [...] Encounters Date Type Department Care Team Description 05/16/[address] [facility] [address] [place] [address] Angel Pulliam MBBS 04/14/[address] [facility] [address] [place] [address] Varun Bass from Last 3 Months Immunizations Immunization Administration [...] 06/04/2022 01/02/2022, 11/21/2021 [facility]-Depression Screening 01/02/2023 01/02/2022 [id number] Vaccine (4 - season) 2025 05/13/2021, 04/15/2021, 11/08/2020 [facility]-Influenza Vaccine [...] Procedure Name Priority Date/Time Associated Diagnosis Comments HEPATITIS C ANTIBODY W/REFLEX TO HCV QUANT PCR Routine 02/22/2025 7:18 AM EDT End-stage liver disease (CMS/HCC) HEMOGLOBIN A1C Routine 01/24/2016 1:47 PM EDT from Last 3 Months or Most Recently Relevant to Health Maintenance Results * Hepatitis C Antibody (02/22/2025 7:18 AM EDT) Hepatitis C Antibody Negative Negative 02/22/2025 8:[address] [facility] Blood Venous blood specimen / Unknown Venipuncture / Unknown 02/22/2025 7:18 AM EDT 02/22/2025 7:48 AM EDT Edil Kiran MD LAB BLOOD ORDERABLES Final Resul t [facility] [address] [place] [address] * (ABNORMAL) Hemoglobin A1c (01/24/2016 1:47 PM [...] 1:47 PM EDT 01/24/2016 6:17 PM EDT us Sherri Adkins APRN LAB BLOOD ORDERABLES Final Result SUNQUEST from Last 3 Months or Most Recently Relevant to Health Maintenance Insurance [employer] MEDICAID [employer]ARE [employer] MEDICAID Care Teams Fiber Machine Tender Relationship Specialty Start Date End Date Monika Hernandez APRN [address] [place] [address] PCP - General 01/19/25 Sary Brannon APRN 1210 [facility] [address] [place] [address] Referring Physician Gastroenterology 01/07/25
--- OUTSIDE RECORDS SUMMARY | 2025-05-30 06:13 | XMS_ITS | Encounter Summary ---
Author Organization Healthcare Address [address] [place] [address] Care Team Providers Care Draftsperson Name Role Phone Larry Bedolla MD Primary Care Provider + [phone] Sary Brannon APRN Unavailable [phone] Monika Hernandez APRN Primary Care Provider + [phone] Encounter Details Date Type Department Care Team (Late st Contact Info) Description 12/06/2024 Orders Only External Location [address] [place] [address] Provider, External Social History Tobacco Use Types [...] documented as of this encounter Care Teams Draftsperson Relationship Specialty Start Date End Date Larry Bedolla MD [address] [place] [address] PCP - General 12/08/20 01/18/25 Monika Hernandez APRN [address] [place] [address] PCP - General 01/19/25 Sary Brannon APRN 1210 [facility] [address] [place] [address] Referring Physician Gastroenterology 01/07/25 documented as of this encounter
--- OUTSIDE RECORDS SUMMARY | 2025-05-30 06:13 | XMS_ITS | Encounter Summary ---
Author Organization Healthcare Address [address] [place] [address] Care Team Providers Care Returned Item Clerk Name Role Phone Larry Bedolla MD Primary Care Provider + [phone] Sary Brannon APRN Unavailable [phone] Monika Hernandez APRN Primary Care Provider + [phone] Encounter Details Date Type Department Care Team (Late st Contact Info) Description 12/10/2024 Orders Only External Location [address] [place] [address] Provider, External Social History Tobacco Use Types [...] documented as of this encounter Care Teams Returned Item Clerk Relationship Specialty Start Date End Date Larry Bedolla MD [address] [place] [address] PCP - General 12/08/20 01/18/25 Monika Hernandez APRN [address] [place] [address] PCP - General 01/19/25 Sary Brannon APRN 1210 [facility] [address] [place] [address] Referring Physician Gastroenterology 01/07/25 documented as of this encounter
--- OUTSIDE RECORDS SUMMARY | 2025-05-30 06:13 | XMS_ITS | Encounter Summary ---
Author Organization Healthcare Address [address] [place] [address] Care Team Providers Care Public Health Technologist Name Role Phone Larry Bedolla MD Primary Care Provider + [phone] Sary Brannon APRN Unavailable [phone] Monika Hernandez APRN Primary Care Provider [phone] Reason for Referral * Consultation (Routine) - Closed Specialty Diagnoses / Procedures Referred By Mayela may Referred To Contact Hepatology Diagnoses Bilious vomiting with nausea Anticentromere antibodies present Thrombopenia Stage 3 hepatic fibrosis Raul Kincaid PA [facility] [place] [address] Phone: tel: fax: Referral ID Status Reason Start Date Expiration Date V isits Requested Visits Authorized [id number] Closed Specialty Services Required 09/27/2021 03/29/2023 1 1 Encounter Details Date Type Department Care Team (Late st Contact Info) Description 09/27/2021 Community [facility] [address] [place] [address] Raul Kincaid PA [address] [place] [address] Bilious vomiting with nausea (Primary [...] fibrosis documented in this encounter Care Teams Public Health Technologist Relationship Specialty Start Date End Date Larry Bedolla MD [address] [place] [address] PCP - General 12/08/20 01/18/25 Monika Hernandez APRN [address] [place] [address] PCP - General 01/19/25 Sary Brannon APRN [address] [place] [address] [address] [place] [address] Referring Physician Gastroenterology 01/07/25 documented as of this encounter
--- OUTSIDE RECORDS SUMMARY | 2025-05-30 06:13 | XMS_ITS | Encounter Summary ---
Author Organization Healthcare Address [address] [place] [address] Care Team Providers Care Healthcare Interpreter Name Role Phone Larry Bedolla MD Primary Care Provider + [phone] Sary Brannon APRN Unavailable [phone] Monika Hernandez APRN Primary Care Provider + [phone] Encounter Details Date Type Department Care Team (Late st Contact Info) Description 11/29/2024 Orders Only External Location [address] [place] [address] Provider, External Social History Tobacco Use Types [...] documented as of this encounter Care Teams Healthcare Interpreter Relationship Specialty Start Date End Date Lrary Bedolla MD [address] [place] [address] PCP - General 12/08/20 01/18/25 Monika Hernandez APRN [address] [place] [address] PCP - General 01/19/25 Sary Brannon APRN [address] [place] [address] [address] [place] [address] Referring Physician Gastroenterology 01/07/25 documented as of this encounter
--- OUTSIDE RECORDS SUMMARY | 2025-05-30 06:13 | XMS_ITS | Encounter Summary ---
Author Organization Healthcare Address [address] [place] [address] Care Team Providers Care Side Laster Tack Name Role Phone Larry Bedolla MD Primary Care Provider + [phone] Sary Brannon APRN Unavailable [phone] Monika Hernandez APRN Primary Care Provider + [phone] Encounter Details Date Type Department Care Team (Late st Contact Info) Description 04/30/2018 Orders Only External Location [address] [place] [address] Provider, External Social History Tobacco Use Types [...] on filedocumented in this encounter Care Teams Side Laster Tack Relationship Specialty Start Date End Date Larry Bedolla MD [address] [place] [address] PCP - General 12/08/20 01/18/25 Monika Hernandez APRN [address] [place] [address] PCP - General 01/19/25 Sary Brannon APRN 1210 [facility] [address] [place] [address] Referring Physician Gastroenterology 01/07/25 documented as of this encounter
--- OUTSIDE RECORDS SUMMARY | 2025-05-30 06:13 | XMS_ITS | Encounter Summary ---
Author Organization Healthcare Address [address] [place] [address] Care Team Providers Care Patternmaker All Around Name Role Phone Larry Bedolla MD Primary Care Provider + [phone] Sary Brannon APRN Unavailable [phone] Monika Hernandez APRN Primary Care Provider + [phone] Encounter Details Date Type Department Care Team (Late st Contact Info) Description 12/09/2024 Orders Only External Location [address] [place] [address] Provider, External Social History Tobacco Use Types [...] documented as of this encounter Care Teams Patternmaker All Around Relationship Specialty Start Date End Date Larry Bedolla MD [address] [place] [address] PCP - General 12/08/20 01/18/25 Monika Hernandez APRN [address] [place] [address] PCP - General 01/19/25 Sary Brannon APRN 1210 [facility] [address] [place] [address] Referring Physician Gastroenterology 01/07/25 documented as of this encounter
--- OUTSIDE RECORDS SUMMARY | 2025-05-30 06:13 | XMS_ITS | Clinical Summary ---
Author Organization [facility] [address] [place] [address] Care Team Providers Care Telegraph Office Telephone Clerk Name Role Phone Sherri Adkins APRN Primary [...] VACCINE 02/25/2025 Insurance [employer] MEDICAID Care Teams Telegraph Office Telephone Clerk Relationship Specialty Start Date End Date Sherri Adkins APRN [address] [place] [address] PCP - General Family Medicine 03/12/16
--- OUTSIDE RECORDS SUMMARY | 2025-05-30 06:13 | XMS_ITS ---
Author Organization Healthcare Address [address] [place] [address] Care Team Providers Care Tower Dragline Operator Name Role Phone Sary Brannon APRN Unavailable [phone] Monika Hernandez APRN Primary Care Provider [phone] Transplant Episode Liver Candidate [facility] ([place], [place]) - JOSÉ LUIS Referred on 01/07/2025 Marked as Active on 01/07/2025 Liver CoordinatorMoraima Centeno RN Fax: N/A Email: N/A Scores Score Value Updated Expires Exceptions/Saloni sons CPRA Not available MELD (Calc) 22 02/22/2025 Care Team Name Role Phone Fax Email Moraima Centeno RN Liver Coordinator [phone] N/A N/A Sary Brannon APRN Referring Physician [phone] N/A Gem Clark Printed Circuit Layout Taper [phone] N/A N/A Edil Kiran MD Surgeon [phone] N/A Events Pre-Transplant Referred: 01/07/2025 Committee: 02/28/2025
--- OUTSIDE RECORDS SUMMARY | 2025-05-30 06:13 | XMS_ITS | Encounter Summary ---
Author Organization Healthcare Address [address] [place] [address] Care Team Providers Care Casting Machine Control Board Operator Name Role Phone Larry Bedolla MD Primary Care Provider + [phone] Sary Brannon APRN Unavailable [phone] Monika Hernandez APRN Primary Care Provider [phone] Encounter Details Date Type Department Care Team (Late st Contact Info) Description 01/21/2022 Community [facility] [address] [place] [address] Larry Bedolla MD [address] [place], [place] [address] Central stenosis of spinal canal (Primary Dx) [...] documented as of this encounter Care Teams Casting Machine Control Board Operator Relationship Specialty Start Date End Date Larry Bedolla MD [address] [place] [address] PCP - General 12/08/20 01/18/25 Monika Hernandez APRN [address] [place], [place] [address] PCP - General 01/19/25 Sary Brannon APRN 1210 [facility] [address] [place] [address] Referring Physician Gastroenterology 01/07/25 documented as of this encounter
--- OUTSIDE RECORDS SUMMARY | 2025-05-30 06:13 | XMS_ITS | Clinical Summary ---
Author Organization [facility] [place] [address] Care Team Providers Care Marklogic Developer Name Role Phone Unavailable Primary Care Provider [...] Zoster (1 of 2) 2012 COVID-19 Vaccine (2024-2 6 season) 2025 Influenza Vaccine (#1) 2025 Hepatitis B Vaccine Aged Out No longe r eligible based on patient's age to complete this topic Meningococcal B Vaccine Aged Out No l onger eligible based on patient's age to complete this topic
--- OUTSIDE RECORDS SUMMARY | 2025-05-30 06:13 | XMS_ITS | Encounter Summary ---
Author Organization Healthcare Address [address] [place] [address] Care Team Providers Care Technical Sales Support Specialist Name Role Phone Larry Bedolla MD Primary Care Provider + [phone] Sary Brannon APRN Unavailable [phone] Monika Hernandez APRN Primary Care Provider + [phone] Encounter Details Date Type Department Care Team (Late st Contact Info) Description 11/30/2024 Orders Only External Location [address] [place] [address] Provider, External Social History Tobacco Use Types [...] documented as of this encounter Care Teams Technical Sales Support Specialist Relationship Specialty Start Date End Date Larry Bedolla MD [address] [place] [address] PCP - General 12/08/20 01/18/25 Monika Hernandez APRN [address] [place] [address] PCP - General 01/19/25 Sary Brannon APRN [address] [facility] [address] [place] [address] Referring Physician Gastroenterology 01/07/25 documented as of this encounter
--- OUTSIDE RECORDS SUMMARY | 2025-05-30 06:13 | XMS_ITS | Encounter Summary ---
Author Organization Healthcare Address [address] [place] [address] Care Team Providers Care Patcher Helper Name Role Phone Sary Brannon APRN Unavailable + [phone] Monika Hernandez APRN Primary Care Provider + [phone] Reason for Visit * Reason Comments Med Refill Encounter Details Date Type Department Care Team (Late st Contact Info) Description 05/16/2025 Refill [facility] [address] [place] [address] Angel Pulliam MBBS [address] [place] [address] Social History Tobacco Use Types Packs/Day Years [...] documented as of this encounter Care Teams Patcher Helper Relationship Specialty Start Date End Date Monika Hernandez APRN [address] [place] [address] PCP - General 01/19/25 Sary Brannon APRN 1210 [facility] [address] [place] [address] Referring Physician Gastroenterology 01/07/25 documented as of this encounter
--- OUTSIDE RECORDS SUMMARY | 2025-05-30 06:13 | XMS_ITS | Encounter Summary ---
Author Organization Healthcare Address [address] [place] [address] Care Team Providers Care Scalloper Name Role Phone Larry Bedolla MD Primary Care Provider + [phone] Sary Brannon APRN Unavailable [phone] Monika Hernandez APRN Primary Care Provider + [phone] Encounter Details Date Type Department Care Team (Late st Contact Info) Description 10/26/2024 Orders Only External Location [address] [place] [address] Provider, External Social History Tobacco Use Types [...] documented as of this encounter Care Teams Scalloper Relationship Specialty Start Date End Date Larry Bedolla MD [address] [place] [address] PCP - General 12/08/20 01/18/25 Monika Hernandez APRN [address] [place] [address] PCP - General 01/19/25 Sary Brannon APRN [address] [facility] [address] [place] [address] Referring Physician Gastroenterology 01/07/25 documented as of this encounter
--- OUTSIDE RECORDS SUMMARY | 2025-05-30 06:13 | XMS_ITS | Encounter Summary ---
Author Organization Healthcare Address [address] [place] [address] Care Team Providers Care Multi Mission Helicopter Aircrewman Name Role Phone Larry Bedolla MD Primary Care Provider + [phone] Sary Brannon APRN Unavailable [phone] Monika Hernandez APRN Primary Care Provider + [phone] Encounter Details Date Type Department Care Team (Late st Contact Info) Description 12/04/2024 Orders Only External Location [address] [place] [address] Provider, External Social History Tobacco Use Types [...] documented as of this encounter Care Teams Multi Mission Helicopter Aircrewman Relationship Specialty Start Date End Date Larry Bedolla MD [address] [place] [address] PCP - General 12/08/20 01/18/25 Monika Hernandez APRN [address] [place] [address] PCP - General 01/19/25 Sary Brannon APRN 1210 [facility] [address] [place] [address] Referring Physician Gastroenterology 01/07/25 documented as of this encounter
--- OUTSIDE RECORDS SUMMARY | 2025-05-30 06:13 | XMS_ITS | Encounter Summary ---
Author Organization Healthcare Address [address] [place] [address] Care Team Providers Care Pharmacovigilance Specialist Name Role Phone Larry Bedolla MD Primary Care Provider + [phone] Sary Brannon APRN Unavailable [phone] Monika Hernandez APRN Primary Care Provider + [phone] Encounter Details Date Type Department Care Team (Late st Contact Info) Description 11/30/2024 Orders Only External Location [address] [place] [address] Provider, External Social History Tobacco Use Types [...] documented as of this encounter Care Teams Pharmacovigilance Specialist Relationship Specialty Start Date End Date Larry Bedolla MD [address] [place] [address] PCP - General 12/08/20 01/18/25 Monika Hernandez APRN [address] [place] [address] PCP - General 01/19/25 Sary Brannon APRN [address] [place] [address] Referring Physician Gastroenterology 01/07/25 documented as of this encounter
--- OUTSIDE RECORDS SUMMARY | 2025-05-30 06:13 | XMS_ITS | Data Portability ---
Author Organization [place] - [place] ADMIN Address [address] [place] [address] Care Team Providers Care Paper Sales Representative Name Role Phone SARI MIX Primary Care Provider [phone] Assessment Encounter Date Assessment Date Assessment LastModified [...] History of colonoscopy: Colonoscopy performed 01/2021 at [facility] with polypectomy (TA). 1 year repeat was recommended but she states she did not follow-up. She has a history of anal soft tissue thickening that was previously being followed by Dr. Quiñonez. 3) Nausea/abdominal pain: Continue Zofran as needed. EGD/colonoscopy scheduled. [email or web address] Not available 05/14/2023 16:14:25 Plan of Treatment Reminders Order Date Submit Date Provider Last Modified By Organization Details Last Modified Time Details Appointments None recorded. Lab CBC 2022 023 [facility], [address], [address], [place], [address], 3 07:14:09 CMP, serum or plasma 2022 023 [facility], [address], [address], [place], [address], 3 07:14:08 PT/INR 2022 023 [facility], [address], [address], [place], [address], 3 07:14:10 afp (alpha-feto protein) tumor marker, serum or plasma 2022 023 [facility], [address], [address], [place], [address], 3 07:14:12 JEANA (antinuclea r antibodies) screen, serum 2022 023 [facility], [address], [address], [place], [address], 3 07:14:14 mitochondri al Ab, serum 2022 023 [email or web address] [facility], [address], [address], [place], [address], 3 08:37:53 smooth muscle Ab, serum 2022 023 [facility], [address], [address], [place], [address], 3 07:14:11 igg, quantitativ e, serum 2022 023 [facility], [address], [address], [place], [address], 3 07:14:15 hepatitis B surface Ab, quantitativ e, serum 2022 023 [facility], [address], [place], [address], 3 07:14:13 Referral None recorded. Procedures None recorded. Surgeries None recorded. Imaging US, liver [address] ([facility]), [address], [place], [address], 15:31:08 Medication Orders Xifaxan 550 mg tablet 2022 023 [email or web address] [facility], [address] [facility] [address], [place], [place], [id number], 16:07:45 Patient TargetsNo targets recorded. Patient InstructionsNo instructions recorded. Reason for Referral None Reported. Results Created Date Observation Date Name Description Value Unit Range Abnormal Flag Note LastModifiedBy Organization Detail LastModifiedTime 05/14/2005/15/2023 COMP. METAB OLIC PANEL (14) glucose 292 mg/dL 70-99 above high normal Not Available [facility] ([facility]) [address], [place], [address], 05/16/2023 07:14:08 05/14/2005/15/2023 COMP. METAB OLIC PANEL (14) BUN 39 mg/dL 8-27 above high normal Not Available [facility] ([facility]) [address] [facility] [place], [address], 05/16/2023 07:14:08 05/14/20 23 05/15/2023 COMP. METAB OLIC PANEL (14) creatinine 1.73 mg/dL 0.57-1 .00 above high normal Not Available [facility] ([facility]) [address] [facility] [place], [address], 05/16/2023 07:14:08 05/14/20 23 05/15/2023 COMP. METAB OLIC PANEL (14) eGFR 33 mL/mi n/1.7 3 >59 below low normal Not Available [facility] ([facility]) [address] [facility] [place], [address], 05/16/2023 07:14:08 05/14/20 23 05/15/2023 COMP. METAB OLIC PANEL (14) BUN/creatini ne ratio 23 12-28 Not Available [facility] ([facility]) [address] [facility] [place], [address], 05/16/2023 07:14:08 05/14/2005/15/2023 COMP. METAB OLIC PANEL (14) sodium 143 mmol/ L 134-14 4 Not Available [facility] ([facility]) [address] [facility] [place], [address], 05/16/2023 07:14:08 05/14/20 23 05/15/2023 COMP. METAB OLIC PANEL (14) potassium 4.8 mmol/ L 3.5-5. 2 Not Available [facility] ([facility]) [address] [facility] [place], [address], 05/16/2023 07:14:08 05/14/20 23 05/15/2023 COMP. METAB OLIC PANEL (14) chloride 103 mmol/ L 96-106 Not Available [facility] ([facility]) [address] [facility] [place], [address], 05/16/2023 07:14:08 05/14/20 23 05/15/2023 COMP. METAB OLIC PANEL (14) carbon dioxide, total 28 mmol/ L 20-29 Not Available [facility] ([facility]) [address] [facility], [place], [address], 05/16/2023 07:14:08 05/14/20 23 05/15/2023 COMP. METAB OLIC PANEL (14) calcium 9.2 mg/dL 8.7-10 .3 Not Available [facility] ([facility]) [address] [facility], [place], [address], 05/16/2023 07:14:08 05/14/20 23 05/15/2023 COMP. METAB OLIC PANEL (14) protein, total 7.4 g/dL 6.0-8. 5 Not Available [facility] ([facility]) [address] [facility], [place], [address], 05/16/2023 07:14:08 05/14/20 23 05/15/2023 COMP. METAB OLIC PANEL (14) albumin 4.1 g/dL 3.9-4. 9 Not Available [facility] ([facility]) [address] [facility], [place], [address], 05/16/2023 07:14:08 05/14/20 23 05/15/2023 COMP. METAB OLIC PANEL (14) globulin, total 3.3 g/dL 1.5-4. 5 Not Available [facility] ([facility]) [address] [facility], [place], [address], 05/16/2023 07:14:08 05/14/20 23 05/15/2023 COMP. METAB OLIC PANEL (14) A/G ratio 1.2 1.2-2. 2 Not Available [facility] ([facility]) [address] [facility], [place], [address], 05/16/2023 07:14:08 05/14/20 23 05/15/2023 COMP. METAB OLIC PANEL (14) bilirubin, total 0.7 mg/dL 0.0-1. 2 Not Available [facility] ([facility]) [address] [facility], [place], [address], 05/16/2023 07:14:08 05/14/2005/15/2023 COMP. METAB OLIC PANEL (14) alkaline phosphatase 144 IU/L 44-121 above high normal Not Available [facility] ([facility]) [address] [facility], [place], [address], 05/16/2023 07:14:08 05/14/2005/15/2023 COMP. METAB OLIC PANEL (14) AST (SGOT) 39 IU/L 0-40 Not Available [facility] ([facility]) [address] [facility], [place], [address], 05/16/2023 07:14:08 05/14/2005/15/2023 COMP. METAB OLIC PANEL (14) ALT (SGPT) 27 IU/L 0-32 Not Available [facility] ([facility]) [address] [facility], [place], [address], 05/16/2023 07:14:08 05/14/2005/15/2023 CBC, PLATE LET, NO DIFFE RENTI AL WBC 3.8 x10e3 /uL 3.4-10 .8 Not Available [facility] ([facility]) [address] [facility], [place], [address], 05/16/2023 07:14:09 05/14/2005/15/2023 CBC, PLATE LET, NO DIFFE RENTI AL RBC 3.98 x10e6 /uL 3.77-5 .28 Not Available [facility] ([facility]) [address] [facility], [place], [address], 05/16/2023 07:14:09 05/14/2005/15/2023 CBC, PLATE LET, NO DIFFE RENTI AL hemoglobin 12.9 g/dL 11.1-1 5.9 Not Available [facility] ([facility]) [address] [facility], [place], [address], 05/16/2023 07:14:09 05/14/2005/15/2023 CBC, PLATE LET, NO DIFFE RENTI AL hematocrit 39.7 % 34.0-4 6.6 Not Available [facility] ([facility]) [address] [facility], [place], [address], 05/16/2023 07:14:09 05/14/2005/15/2023 CBC, PLATE LET, NO DIFFE RENTI AL MCV 100 fL 79-97 above high normal Not Available [facility] ([facility]) [address] [facility], [place], [address], 05/16/2023 07:14:09 05/14/2005/15/2023 CBC, PLATE LET, NO DIFFE RENTI AL MCH 32.4 pg 26.6-3 3.0 Not Available [facility] ([facility]) [address] [facility], [place], [address], 05/16/2023 07:14:09 05/14/2005/15/2023 CBC, PLATE LET, NO DIFFE RENTI AL MCHC 32.5 g/dL 31.5-3 5.7 Not Available [facility] ([facility]) [address] [facility], [place], [address], 05/16/2023 07:14:09 05/14/2005/15/2023 CBC, PLATE LET, NO DIFFE RENTI AL RDW 14.1 % 11.7-1 5.4 Not Available [facility] ([facility]) [address] [facility], [place], [address], 05/16/2023 07:14:09 05/14/2005/15/2023 CBC, PLATE LET, NO DIFFE RENTI AL platelets 81 x10e3 /uL 150-45 0 alert low Plate let count verif ied by exami natio n of perip heral blood smear . Not Available [facility] ([facility]) [address] [facility], [place], [address], 05/16/2023 07:14:09 05/14/2005/15/2023 CBC, PLATE LET, NO DIFFE RENTI AL hematology comments: NOTE: Verif ied by micro scopi c exami natio n. Not Available [facility] ([facility]) [address] [facility], [place], [address], 05/16/2023 07:14:09 05/14/2005/15/2023 CBC, PLATE LET, NO DIFFE RENTI AL NRBC TOW TRUCK DISPATCHER Not Available [facility] ([facility]) [address] [facility], [place], [address], 05/16/2023 07:14:09 05/14/2005/15/2023 PROTH ROMBI N TIME [...] range 2.5 - 3.5 Not Available [facility] ([facility]) [address] [facility], [place], [address], 05/16/2023 07:14:10 05/14/2005/15/2023 PROTH ROMBI N TIME (PT), SERIA L prothrombin time 11.9 sec 9.1-12 .0 Not Available [facility] ([facility]) [address] [facility], [place], [address], 05/16/2023 07:14:10 05/14/2005/15/2023 PROTH ROMBI N TIME (PT), SERIA L pdf . Not Available [facility] ([facility]) [address] [facility], [place], [address], 05/16/2023 07:14:10 05/14/2005/15/2023 ANTI- AIXA H MUSCL [...] bilia ry cirrh osis. Not Available [facility] ([facility]) [address] [facility], [place], [address], 05/16/2023 07:14:11 05/14/2005/15/2023 ANTI- AIXA H MUSCL E/TAHIR [place]ON D. mitochondria l (M2) antibody <20.0 units 0.0-20 .0 Negat marnie 0.0 - 20.0 Equiv ocal 20.1 - 24.9 Posit marnie >24.9 Mitoc hondr ial (M2) Antib odies are found in 90-96 % of patie nts with prima ry bilia ry cirrh osis. Not Available [facility] ([facility]) [address] [facility], [place], [address], 05/16/2023 07:14:11 05/14/2005/15/2023 AFP, SERUM , TUMOR MARKE R AFP, serum, tumor marker 3.0 NG/mL 0.0-9. 2 Jeimy Diagn ostic s Elect jeimy milum inesc ence Immun oassa y (ECLI A) Value s obtai esa with diffe rent assay metho ds or kits canno t be used inter starks eably . Resul ts canno t be inter prete d as absol [place] evide nce of the prese nce or absen ce of claudette [place] se. This test is not inter preta ble in pregn ant femal es. Not Available [facility] ([facility]) [address] [facility], [place], [address], 05/16/2023 07:14:12 05/14/2005/15/2023 HEPAT ITIS B SURF AB QUANT hepatitis B surf Ab quant <3.1 mIU/m L immuni ty>9.9 below low normal Statu s of Immun ity Anti- HBs Level ----- ----- ----- --- ----- ----- ---- Incon siste nt with Immun ity 0.0 - 9.9 Consi stent with Immun ity >9.9 Not Available [facility] ([facility]) [address] [facility], [place], [address], 05/16/2023 07:14:13 05/14/2005/15/2023 JEANA W/REF KISHOR IF POSIT MARNIE JEANA direct POSITI VE negati ve abnormal Not Available [facility] ([facility]) [address] [place], [address], 05/16/2023 07:14:14 05/14/2005/15/2023 JEANA W/REF KISHOR IF POSIT MARNIE anti-DNA (ds) Ab qn <1 IU/mL 0-9 Negat marnie <5 Equiv ocal 5 - 9 Posit marnie >9 Not Available [facility] ([facility]) [address] [place], [address], 05/16/2023 07:14:14 05/14/2005/15/2023 JEANA W/REF KISHOR IF POSIT MARNIE edge setter antibodies <0.2 ai 0.0-0. 9 Not Available [facility] ([facility]) [address] [place], [address], 05/16/2023 07:14:14 05/14/2005/15/2023 JEANA W/REF KISHOR IF POSIT MARNIE perez antibodies <0.2 ai 0.0-0. 9 Not Available [facility] ([facility]) [address] [place], [address], 05/16/2023 07:14:14 05/14/2005/15/2023 JEANA W/REF KISHOR IF POSIT MARNIE antisclerode rma-70 antibodies 0.3 ai 0.0-0. 9 Not Available [facility] ([facility]) [address] [place], [address], 05/16/2023 07:14:14 05/14/2005/15/2023 JEANA W/REF KISHOR IF POSIT MARNIE sjogren's anti-ss-A <0.2 ai 0.0-0. 9 Not Available [facility] ([facility]) [address] [place], [address], 05/16/2023 07:14:14 05/14/2005/15/2023 JEANA W/REF KISHOR IF POSIT MARNIE sjogren's anti-ss-B <0.2 ai 0.0-0. 9 Not Available [facility] ([facility]) [address] [place], [address], 05/16/2023 07:14:14 05/14/2005/15/2023 JEANA W/REF KISHOR IF POSIT MARNIE antichromati n antibodies <0.2 ai 0.0-0. 9 Not Available [facility] ([facility]) [address] [place], [address], 05/16/2023 07:14:14 05/14/2005/15/2023 JEANA W/REF KISHOR IF POSIT MARNIE anti-trisha-1 <0.2 ai 0.0-0. 9 Not Available [facility] ([facility]) [address] [place], [address], 05/16/2023 07:14:14 05/14/2005/15/2023 JEANA W/REF KISHOR IF POSIT MARNIE anti-centrom ere B antibodies 2.7 ai 0.0-0. 9 above high normal Not Available [facility] ([facility]) [address] [facility], [place], [address], 05/16/2023 07:14:14 05/14/2005/16/2023 JEANA W/REF KISHOR IF POSIT MARNIE complement C3, serum 109 mg/dL 82-167 Not Available [facility] ([facility]) [address] [facility], [place], [address], 05/16/2023 07:14:14 05/14/2005/16/2023 JEANA W/REF KISHOR IF POSIT MARNIE complement C4, serum 20 mg/dL 12-38 Not Available [facility] ([facility]) [address] [facility], [place], [address], 05/16/2023 07:14:14 05/14/2005/15/2023 IMMUN OGLOB ULIN G, QN, SERUM immunoglobul in g, qn, serum 1562 mg/dL 586-16 02 Not Available [facility] ([facility]) [address] [facility], [place], [address], 05/16/2023 07:14:15 06/06/2006/06/2023 US, liver No observ ation record ed. [facility] [address], [place], [address], 06/13/2023 12:55:07 Result Notes None recorded. Problems Name Problem SNOMED Code Status Onset Date Resolution Date Notes Provider Name and Address Organization Details Recorded Time Stage 3 hepatic fibrosis 5608157808793 9109 Active 2022 Raul Kincaid PA-C [address], [place], [address] , [facility] - [place] - [place] 04/13/202 3 08:26:45 Anticentro mere antibody pattern 449206472 Active 2022 Raul Kincaid PA-C [address], [place], [place], [address] [place] [address] , [facility] & [place] 3 08:27:15 Metabolic dysfunctio n-associat ed steatohepa titis 540301028 Active 2022 Raul Kincaid PA-C [address], [place] [address] , [facility] & [place] 3 08:28:41 Hepatic encephalop athy 71627949 Active 2022 Raul Kincaid PA-C [address], [place] [address] , [facility] & [place] 3 10:58:50 Anti-nucle ar factor detected 434192682 Active 2022 Raul Kincaid PA-C [address], [place] [address] , [facility] & [place] 3 16:09:02 Problem Notes None recorded. Medical [...] Address Organization Details Last Updated DateTime 3 94849.9 4 g 97.4 [degF] 32.6 kg/m2 167.64 cm 84 /min 91 /min 98 % 98 % 131/72 mm[Hg] Luz Maria Pike [facility] & [place] 10:32:47 Social History Question Answer Notes LastModified by [facility] ion Details LastModified Time Tobacco Smoking Status Never Smoker Luz Maria ayala, [facility] & [place] 05/14/2023 10:31:56 What Is Your Level Of Caffeine Consumption? Moderate [email or web address] Information not available 05/14/2023 Sex: Unknown Functional Status Question Answer Note LastModified by Organizat ion Details LastModified Time Do you use any illicit or recreational drugs? No [email or web address] Information not available 05/14/2023 Do you or have you ever used any other forms of tobacco or nicotine? No [email or web address] Information not available 05/14/2023 What is your level of alcohol consumption? Occasional [email or web address] Information not available 05/14/2023 Mental Status None [...] ICD10 Code Diagnosis IMO Codes Diagnosis Note [id number] Raul Kincaid PA-C [facility] [address] [address] 05/14/2023 10:00:22 05/14/2023 11:33:43 Stage 3 hepatic fibrosis 0729150398 9632704 K74.02 Hepatic encephalopathy 76586767 K76.82 History of polyp of colon 531688528 Z86.010 Anti-nucle ar factor detected 929771972 R76.8 Anticentro mere antibody pattern 673727425 R76.8 Health Concerns Section Related Observation LastModified by Organization Detai ls LastModified Time None Recorded Concern Status LastModified by Organization Details LastModified Time None Recorded Advance Directives Directive None Recorded Payers Insurance Date Sequence Insurance Name Policy Number Policy Deng Covered Member ID Deng Member ID Guarantor Name 02/14/2024 1 [employer] (MEDICARE REPLACEMENT/A DVANTAGE - PPO) Mary Coronel [id number] Mary Coronel 02/14/2024 2 [facility] [facility] (MEDICARE REPLACEMENT/A DVANTAGE - HMO) Mary Coronel [id number] Mary Coronel Notes Date Note Type Note Provider Name and Address Organization Details Recorded Time 05/14/2023 text/html PREVIOUS (09/27/21): Ms. Coronel returns to the office today [...] last appointment for colonoscopy. Raul Kincaid PA-C [address], [place], [address], [facility] [place] 05/14/2023 16:14:59 OBGyn Episode No OBEpisode recorded.
--- OUTSIDE RECORDS SUMMARY | 2025-05-30 06:13 | XMS_ITS | Encounter Summary ---
Author Organization Healthcare Address [address] [place] [address] Care Team Providers Care Development Administrator Name Role Phone Larry Bedolla MD Primary Care Provider [phone] Sary Brannon APRN Unavailable [phone] Monika Hernandez APRN Primary Care Provider [phone] Encounter Details Date Type Department Care Team (Late st Contact Info) Description 12/02/2024 Orders Only External Location [address] [place] [address] Provider, External Social History Tobacco Use Types [...] as of this encounter Care Teams Development Administrator Relationship Specialty Start Date End Date Larry Bedolla MD [address] [place] [address] PCP - General 12/08/20 01/18/25 Monika Hernandez APRN [address] [place] [address] PCP - General 01/19/25 Sary Brannon APRN [address] [place] [address] [address] [place] [address] Referring Physician Gastroenterology 01/07/25 documented as of this encounter
--- OUTSIDE RECORDS SUMMARY | 2025-05-30 06:13 | XMS_ITS | Encounter Summary ---
Author Organization Healthcare Address [address] [place] [address] Care Team Providers Care Film Color Tester Name Role Phone Larry Bedolla MD Primary Care Provider + [phone] Sary Brannon APRN Unavailable [phone] Monika Hernandez APRN Primary Care Provider [phone] Encounter Details Date Type Department Care Team (Late st Contact Info) Description 12/31/2024 Orders Only External Location [address] [place] [address] Monika Hernandez APRN [address] [place], [place] [id number] Social History Tobacco Use Types Packs/Day Years [...] 12/31/2024 7:33 AM EDT Monika Hernandez APRN [facility] Final Result documented in this encounter Visit Diagnoses Not on filedocumented in this encounter Additional Health Concerns Assessment Noted Time A fall risk assessment has been complete d for the patient 01/02/2022 1:17 PM EDT A Body Mass Index follow-up plan has been documented for the patient 11/13/2022 11:41 AM EDT documented as of this encounter Care Teams Film Color Tester Relationship Specialty Start Date End Date Larry Bedolla MD [address] [place] [address] PCP - General 12/08/20 01/18/25 Monika Hernandez APRN [address] [place] [address] PCP - General 01/19/25 Sary Brannon APRN 1210 [facility] [address] [place] [address] Referring Physician Gastroenterology 01/07/25 documented as of this encounter
--- OUTSIDE RECORDS SUMMARY | 2025-05-30 06:13 | XMS_ITS | Encounter Summary ---
Author Organization Healthcare Address [address] [place] [address] Care Team Providers Care Cord Cutter Name Role Phone Larry Bedolla MD Primary Care Provider + [phone] Sary Brannon APRN Unavailable [phone] Monika Hernandez APRN Primary Care Provider + [phone] Encounter Details Date Type Department Care Team (Late st Contact Info) Description 12/03/2024 Orders Only External Location [address] [place] [address] Provider, External Social History Tobacco Use Types [...] documented as of this encounter Care Teams Cord Cutter Relationship Specialty Start Date End Date Larry Bedolla MD [address] [place] [address] PCP - General 12/08/20 01/18/25 Monika Hernandez APRN [address] [place] [address] PCP - General 01/19/25 Sary Brannon APRN 1210 [facility] [address] [place] [address] Referring Physician Gastroenterology 01/07/25 documented as of this encounter
--- OUTSIDE RECORDS SUMMARY | 2025-05-30 06:13 | XMS_ITS | Encounter Summary ---
Author Organization Healthcare Address [address] [place] [address] Care Team Providers Care Telecommunication Equipment Repairer Name Role Phone Sary Brannon APRN Unavailable [phone] DavidMonika ÁNGEL Primary Care Provider + [phone] Encounter Details Date Type Department Care Team (Late st Contact Info) Description 04/14/2025 Telephone [facility] [address] [facility] [address] [place] [id number] Varun Bass Social History Tobacco Use Types [...] encounter Miscellaneous Notes * Telephone Encounter - Moraima Centeno RN - 05/19/2025 12:18 PM EDT Patient was no show for 03-22-25 appt and does not appear she has responded to Eigarrets message from 04-14-25. Phd patient- l msg on vm. * Telephone Encounter - Varun Bass - 04/14/2025 12:05 PM EDT Called Mrs. Coronel to discuss r/s her missed appt on 03/22. Patient did not answer. Left a VM asking her to give me a call back to r/s at [phone]. documented in this encounter Plan of Treatment [...] documented as of this encounter Care Teams Telecommunication Equipment Repairer Relationship Specialty Start Date End Date Monika Hernandez APRN [address] [place] [address] PCP - General 01/19/25 Sary Brannon APRN 1210 [facility] [address] [place] [address] Referring Physician Gastroenterology 01/07/25 documented as of this encounter
--- OUTSIDE RECORDS SUMMARY | 2025-05-30 06:13 | XMS_ITS | Encounter Summary ---
Author Organization Healthcare Address [address] [place] [address] Care Team Providers Care Laborer Egg Producing Farm Name Role Phone Larry Bedolla MD Primary Care Provider + [phone] Sary Brannon APRN Unavailable [phone] Monika Hernandez APRN Primary Care Provider + [phone] Encounter Details Date Type Department Care Team (Late st Contact Info) Description 12/07/2024 Orders Only External Location [address] [place] [address] Provider, External Social History Tobacco Use Types [...] documented as of this encounter Care Teams Laborer Egg Producing Farm Relationship Specialty Start Date End Date Larry Bedolla MD [address] [place] [address] PCP - General 12/08/20 01/18/25 Monika Hernandez APRN [address] [place] [address] PCP - General 01/19/25 Sary Brannon APRN 1210 [facility] [address] [place] [address] Referring Physician Gastroenterology 01/07/25 documented as of this encounter
--- OUTSIDE RECORDS SUMMARY | 2025-05-30 06:13 | XMS_ITS | Encounter Summary ---
Author Organization Healthcare Address [address] [place] [address] Care Team Providers Care Order Entry Name Role Phone Larry Bedolla MD Primary Care Provider + [phone] Sary Brannon APRN Unavailable [phone] Monika Hernandez APRN Primary Care Provider + [phone] Encounter Details Date Type Department Care Team (Late st Contact Info) Description 12/10/2024 Orders Only External Location [address] [place] [address] Provider, External Social History Tobacco Use Types [...] documented as of this encounter Care Teams Order Entry Relationship Specialty Start Date End Date Larry Bedolla MD [address] [place] [address] PCP - General 12/08/20 01/18/25 Monika Hernandez APRN [address] [place] [address] PCP - General 01/19/25 Sary Brannon APRN 1210 [facility] [address] [place] [address] Referring Physician Gastroenterology 01/07/25 documented as of this encounter
--- NOTE | 2025-05-30 06:30 | NM_ITS ---
APPROVED REPORT Exam: Nuclear Stress Test Indication: Abnormal EKG, HTN, DM, High cholesterol, Family history, CAD Patient Location: Outpatient Stress Tech: Iman ALANIZ Tech:Conchita Cook, ARRT, RT (R)(N) Ht: 5 ft 6 in Wt: 162 lbs Bra Size: D HR: 106 bpm BP: 149/90 mmHg BSA: 1.83 m2 TID: 1.12 BMI: 26.1 History: Abnormal EKG, HTN, DM, High cholesterol, Family history, CAD Procedure: Patient received 0.4 mg of intravenous Lexiscan, resting heart rate 106 bpm, resting blood pressure 149/90 mmHg, with Lexiscan maximum heart rate achieved was 109 bpm which is % of the maximum predicted heart rate and blood pressure was 159/75 mmHg. With Lexiscan, patient denied any complaint of chest pain. Cardiac Stress and Resting SPECT Images: Cardiac Stress and Resting SPECT images were obtained using technetium 99m Myoview 31.3 mCi stress and 10.79 mCi at rest. Patient was unable to lay on abdomen for prone images. This may affect the diagnostic interpretation of the study findings. Resting and stress imaging in supine positions demonstrate a medium-sized, moderate, predominantly fixed perfusion defect in the basal to mid inferior LV wall. There is a small region of reversibility towards the mid inferior LV wall. Gated imaging demonstrates normal global LV systolic function. LVEF is calculated at 52%. Conclusion: Medium-sized, moderate, predominantly fixed perfusion defect in the basal to mid inferior LV wall. There is a small region of reversibility towards the mid inferior LV wall. Gated imaging demonstrates normal global LV systolic function. LVEF is calculated at 52%. Electronically signed by : Courtney Ramesh MD 05/31/2025 13:09:33
[2025-05-30 08:05] VITALS: BP 149/90; PULSE 108; RESP 16
[2025-05-30] MEDS: SODIUM CHLORIDE 0.9% 10ML SYR (RAD ONLY) 10 ML IV ×2 (08:11)
[2025-05-30] MEDS: ISOTOPE MYOVIEW (PER STUDY) 1 DOSE IV (08:11)
== END 2025-05-30 23:59 | disposition home or self-care (01) ==
LOC: RAD 06:10
PROVIDERS: PCP Family Medicine; Visit Provider Physician Assistant
DX: I25.10 Atherosclerotic heart disease of native coronary artery without angina pectoris (principal); I11.9 Hypertensive heart disease without heart failure; I48.0 Paroxysmal atrial fibrillation; R94.39 Abnormal result of other cardiovascular function study; R94.31 Abnormal electrocardiogram [ECG] [EKG]; E11.9 Type 2 diabetes mellitus without complications; E78.00 Pure hypercholesterolemia, unspecified
CPT/HCPCS: 78452; 93017; 93018; A9502; J2785

== ENCOUNTER 2025-06-06 09:25 | Outpatient (CLI) | payer MEDICARE, MEDICAID, SELFPAY ==
--- NOTE | 2025-06-06 09:38 | US_ITS ---
FINAL REPORT CLINICAL HISTORY: R18.8 - Other ascites-- RT SIDE-- 8150 ML-- FROILAN GOODWIN FINDINGS: ULTRASOUND-GUIDED PARACENTESIS HISTORY: Ascites ATTENDING PHYSICIAN: Dr. Chaney PHYSICIAN SLOT SUPERVISOR: Froilan Goodwin PA-C FINDINGS: After informed consent was obtained and timeout procedure performed, fluid was localized in the right lower quadrant under ultrasound guidance and marked on the skin appropriately. The patient was then prepped and draped in the usual sterile fashion and the skin was anesthetized with 1% lidocaine. An ultrasound guided paracentesis was then performed using a Turkel needle. Approximately 8.2 liters of clear yellow fluid was removed. No fluid was sent to lab. The patient tolerated the procedure well and there were no immediate complications. IMPRESSION: Ultrasound guided right lower quadrant paracentesis as discussed above. Reviewed, Interpreted and Dictated by Brad Chaney MD Transcribed by SKIP Parham Authenticated and [facility]
--- OUTSIDE RECORDS SUMMARY | 2025-06-06 09:38 | XMS_ITS | Encounter Summary ---
Author Organization Healthcare Address [address] [place] [address] Care Team Providers Care Marble Installer Name Role Phone Larry Bedolla MD Primary Care Provider + [phone] Sary Brannon APRN Unavailable [phone] Monika Hernandez APRN Primary Care Provider + [phone] Encounter Details Date Type Department Care Team (Late st Contact Info) Description 12/07/2024 Orders Only External Location [address] [place] [address] Provider, External Social History Tobacco Use Types [...] documented as of this encounter Care Teams Marble Installer Relationship Specialty Start Date End Date Larry Bedolla MD [address] [place] [address] PCP - General 12/08/20 01/18/25 Monika Hernandez APRN [address] [place] [address] PCP - General 01/19/25 Sary Brannon APRN 1210 [facility] [address] [place] [address] Referring Physician Gastroenterology 01/07/25 documented as of this encounter
--- OUTSIDE RECORDS SUMMARY | 2025-06-06 09:38 | XMS_ITS | Encounter Summary ---
Author Organization Healthcare Address [address] [place] [address] Care Team Providers Care Editorial Intern Name Role Phone Larry Bedolla MD Primary Care Provider + [phone] Sary Brannon APRN Unavailable [phone] Monika Hernandez APRN Primary Care Provider [phone] Reason for Referral * Consultation (Routine) - Closed Specialty Diagnoses / Procedures Referred By Mayela may Referred To Contact Hepatology Diagnoses Bilious vomiting with nausea Anticentromere antibodies present Thrombopenia Stage 3 hepatic fibrosis Raul Kincaid PA [facility] [place] [address] Phone: tel: fax: Referral ID Status Reason Start Date Expiration Date V isits Requested Visits Authorized [id number] Closed Specialty Services Required 09/27/2021 03/29/2023 1 1 Encounter Details Date Type Department Care Team (Late st Contact Info) Description 09/27/2021 Community [facility] [address] [place] [address] Raul Kincaid PA [address] [place] [address] Bilious vomiting with nausea (Primary [...] fibrosis documented in this encounter Care Teams Editorial Intern Relationship Specialty Start Date End Date Larry Bedolla MD [address] [place] [id number] PCP - General 12/08/20 01/18/25 Monika Hernandez APRN [address] [place] [address] PCP - General 01/19/25 Sary Brannon APRN [address] [place] [address] [address] [place] [address] Referring Physician Gastroenterology 01/07/25 documented as of this encounter
--- OUTSIDE RECORDS SUMMARY | 2025-06-06 09:38 | XMS_ITS | Encounter Summary ---
Author Organization Healthcare Address [address] [place] [address] Care Team Providers Care Zoning Technician Name Role Phone Larry Bedolla MD Primary Care Provider + [phone] Sary Brannon APRN Unavailable [phone] Monika Hernandez APRN Primary Care Provider + [phone] Encounter Details Date Type Department Care Team (Late st Contact Info) Description 11/30/2024 Orders Only External Location [address] [place] [address] Provider, External Social History Tobacco Use Types [...] documented as of this encounter Care Teams Zoning Technician Relationship Specialty Start Date End Date Larry Bedolla MD [address] [place] [address] PCP - General 12/08/20 01/18/25 Monika Hernandez APRN [address] [place] [address] PCP - General 01/19/25 Sary Brannon APRN 1210 [facility] [address] [place] [address] Referring Physician Gastroenterology 01/07/25 documented as of this encounter
--- OUTSIDE RECORDS SUMMARY | 2025-06-06 09:38 | XMS_ITS | Encounter Summary ---
Author Organization Healthcare Address [address] [place] [address] Care Team Providers Care Administrative Assistant Receptionist Name Role Phone Larry Bedolla MD Primary Care Provider + [phone] Sary Brannon APRN Unavailable [phone] Monika Hernandez APRN Primary Care Provider + [phone] Encounter Details Date Type Department Care Team (Late st Contact Info) Description 11/30/2024 Orders Only External Location [address] [place] [address] Provider, External Social History Tobacco Use Types [...] documented as of this encounter Care Teams Administrative Assistant Receptionist Relationship Specialty Start Date End Date Larry Bedolla MD [address] [place] [address] PCP - General 12/08/20 01/18/25 Monika Hernandez APRN [address] [place] [address] PCP - General 01/19/25 Sary Brannon APRN [address] [place] [address] Referring Physician Gastroenterology 01/07/25 documented as of this encounter
--- OUTSIDE RECORDS SUMMARY | 2025-06-06 09:38 | XMS_ITS | Encounter Summary ---
Author Organization Healthcare Address [address] [place] [address] Care Team Providers Care Drafter Heating And Ventilating Name Role Phone Larry Bedolla MD Primary Care Provider + [phone] Sary Brannon APRN Unavailable [phone] Monika Hernandze APRN Primary Care Provider + [phone] Encounter Details Date Type Department Care Team (Late st Contact Info) Description 12/09/2024 Orders Only External Location [address] [place] [address] Provider, External Social History Tobacco Use Types [...] documented as of this encounter Care Teams Drafter Heating And Ventilating Relationship Specialty Start Date End Date Larry Bedolla MD [address] [place] [address] PCP - General 12/08/20 01/18/25 Monika Hernandez APRN [address] [place] [address] PCP - General 01/19/25 Sary Brannon APRN 1210 [facility] [address] [place] [address] Referring Physician Gastroenterology 01/07/25 documented as of this encounter
--- OUTSIDE RECORDS SUMMARY | 2025-06-06 09:38 | XMS_ITS | Encounter Summary ---
Author Organization Healthcare Address [address] [place] [address] Care Team Providers Care Switch Repairer Name Role Phone Larry Bedolla MD Primary Care Provider + [phone] Sary Brannon APRN Unavailable [phone] Monika Hernandez APRN Primary Care Provider + [phone] Encounter Details Date Type Department Care Team (Late st Contact Info) Description 12/03/2024 Orders Only External Location [address] [place] [address] Provider, External Social History Tobacco Use Types [...] documented as of this encounter Care Teams Switch Repairer Relationship Specialty Start Date End Date Larry Bedolla MD [address] [place] [address] PCP - General 12/08/20 01/18/25 Monika Hernandez APRN [address] [place] [address] PCP - General 01/19/25 Sary Barnnon APRN 1210 [facility] [address] [place] [address] Referring Physician Gastroenterology 01/07/25 documented as of this encounter
--- OUTSIDE RECORDS SUMMARY | 2025-06-06 09:38 | XMS_ITS | Referral Summary ---
Author Organization [employer] ([place], [place], [place], [place], [place]) Address [address] [place] [address] Care Team Providers Care Home Service Director Name Role Phone Provider, Not In System CONTACT ASSEMBLER Primary Care Provid er Unavailable Allergies No [...] the past 12 months, has t he [employer], gas, oil, or water company threatened to [...] your living situation today? I have a [facility] place to live 11/30/2024 Think about [...] Do you speak a language other than Bengali at [facility]? No 11/30/2024 Do you want help [...] [facility] [address] [phone] from Last 3 Months or Most Recently Relevant to Health Maintenance Insurance [facility] Advance Directives For more information, please contact: [phone] * Full Code (Latest Code Status on File) Date Activated Date Inactivated Comments 11/30/2024 2:06 AM 12/14/2024 6:30 PM Care Teams Home Service Director Relationship Specialty Start Date End Date Provider, Not In System, ÁNGEL LONG PCP - General 12/14/24
--- OUTSIDE RECORDS SUMMARY | 2025-06-06 09:38 | XMS_ITS | Encounter Summary ---
Author Organization Healthcare Address [address] [place] [address] Care Team Providers Care Chronometer Repairer Name Role Phone Larry Bedolla MD Primary Care Provider + [phone] Sary Brannon CURRICULUM COACH Unavailable [phone] Monika Hernandez APRN Primary Care Provider [phone] Encounter Details Date Type Department Care Team (Late st Contact Info) Description 01/03/2025 Community [facility] Community Practice [address] [place] [address] Sary Brannon, CURRICULUM COACH [address] [place], [place] [address] Social History Tobacco Use Types Packs/Day Years [...] documented as of this encounter Care Teams Chronometer Repairer Relationship Specialty Start Date End Date Larry Bedolla MD [address] [place] [address] PCP - General 12/08/20 01/18/25 Monika Hernandez APRN [address] [place] [address] PCP - General 01/19/25 Sary Brannon APRN [address] [place] [address] Referring Physician Gastroenterology 01/07/25 documented as of this encounter
--- OUTSIDE RECORDS SUMMARY | 2025-06-06 09:38 | XMS_ITS | Encounter Summary ---
Author Organization Healthcare Address [address] [place] [address] Care Team Providers Care Oil Field Laborer Name Role Phone Larry Bedolla MD Primary Care Provider + [phone] Sary Brannon APRN Unavailable [phone] Monika Hernandez APRN Primary Care Provider [phone] Encounter Details Date Type Department Care Team (Late st Contact Info) Description 01/21/2022 Community [facility] Community Practice [address] [place] [address] Larry Bedolla MD [address] [place], [place] [address] Central stenosis of spinal canal (Primary Dx) [...] documented as of this encounter Care Teams Oil Field Laborer Relationship Specialty Start Date End Date Larry Bedolla MD [address] [place] [address] PCP - General 12/08/20 01/18/25 Monika Hernandez APRN [address] [place], [place] [address] PCP - General 01/19/25 Sary Brannon APRN 1210 [facility] [address] [place] [address] Referring Physician Gastroenterology 01/07/25 documented as of this encounter
--- OUTSIDE RECORDS SUMMARY | 2025-06-06 09:38 | XMS_ITS | Encounter Summary ---
Author Organization Healthcare Address [address] [place] [address] Care Team Providers Care Lube Worker Name Role Phone Sary Brannon APRN Unavailable [phone] DavidMonika ÁNGEL Primary Care Provider + [phone] Encounter Details Date Type Department Care Team (Late st Contact Info) Description 04/14/[address] [facility] Transplant Center [address] [place] [address] Varun Bass Social History Tobacco Use Types [...] me a call back to r/s at [phone]. documented in this encounter Plan of Treatment [...] documented as of this encounter Care Teams Lube Worker Relationship Specialty Start Date End Date Monika Hernandez APRN [address] [place] [address] PCP - General 01/19/25 Sary Brannon APRN 1210 [facility] [address] [place] [address] Referring Physician Gastroenterology 01/07/25 documented as of this encounter
--- OUTSIDE RECORDS SUMMARY | 2025-06-06 09:38 | XMS_ITS ---
Author Organization Healthcare Address [address] [place] [address] Care Team Providers Care Hedge Fund Manager Name Role Phone Sary Brannon APRN Unavailable [phone] Monika Hernandez APRN Primary Care Provider [phone] Transplant Episode Liver Candidate [facility] ([place], [place]) - JOSÉ LUIS Referred on 01/07/2025 Marked as Active on 01/07/2025 Liver CoordinatorMoraima Centeno RN Fax: N/A Email: N/A Scores Score Value Updated Expires Exceptions/Saloni sons CPRA Not available MELD (Calc) 22 02/22/2025 Care Team Name Role Phone Fax Email Moraima Centeno RN Liver Coordinator [phone] N/A N/A Sary Brannon APRN Referring Physician [phone] N/A Gem Clark Nursing Educator [phone] N/A N/A Edil Kiran MD Surgeon [phone] N/A Events Pre-Transplant Referred: 01/07/2025 Committee: 02/28/2025
--- OUTSIDE RECORDS SUMMARY | 2025-06-06 09:38 | XMS_ITS | Encounter Summary ---
Author Organization Healthcare Address [address] [place] [address] Care Team Providers Care Coffee Bar Attendant Name Role Phone Larry Bedolla MD Primary Care Provider + [phone] Sary Brannon TECHNICAL ANALYST Unavailable [phone] Monika Hernandez APRN Primary Care Provider [phone] Reason for Visit * Reason Comments Med Refill Encounter Details Date Type Department Care Team (Late st Contact Info) Description [facility]/12[facility]20[facility] [address] [place] [address] Lina Lowe, TECHNICAL ANALYST [address] [facility] [address] [place] [address] Social History Tobacco Use Types [...] on filedocumented in this encounter Care Teams Coffee Bar Attendant Relationship Specialty Start Date End Date Larry Bedolla MD [address] [place], [place] [address] PCP - General 12/08/20 01/18/25 Monika Hernandez APRN [address] [place] [address] PCP - General 01/19/25 Sary Brannon APRN 1210 [facility] [address] [place] [address] Referring Physician Gastroenterology 01/07/25 documented as of this encounter
--- OUTSIDE RECORDS SUMMARY | 2025-06-06 09:38 | XMS_ITS | Encounter Summary ---
Author Organization Healthcare Address [address] [place] [address] Care Team Providers Care Viscosity Inspector Name Role Phone Larry Bedolla MD Primary Care Provider + [phone] Sary Brannon APRN Unavailable [phone] Monika Hernandez APRN Primary Care Provider + [phone] Encounter Details Date Type Department Care Team (Late st Contact Info) Description 11/30/2024 Orders Only External Location [address] [place] [address] Provider, External Social History Tobacco Use Types [...] documented as of this encounter Care Teams Viscosity Inspector Relationship Specialty Start Date End Date Larry Bedolla MD [address] [place] [address] PCP - General 12/08/20 01/18/25 Monika Hernandez APRN [address] [place] [address] PCP - General 01/19/25 Sary Brannon APRN 1210 [facility] [address] [place] [address] Referring Physician Gastroenterology 01/07/25 documented as of this encounter
--- OUTSIDE RECORDS SUMMARY | 2025-06-06 09:38 | XMS_ITS | Encounter Summary ---
Author Organization Healthcare Address [address] [place] [address] Care Team Providers Care Associate Professor Of Geography Name Role Phone Larry Bedolla MD Primary Care Provider + [phone] Sary Brannon APRN Unavailable [phone] Monika Hernandez APRN Primary Care Provider + [phone] Encounter Details Date Type Department Care Team (Late st Contact Info) Description 12/10/2024 Orders Only External Location [address] [place] [address] Provider, External Social History Tobacco Use Types [...] documented as of this encounter Care Teams Associate Professor Of Geography Relationship Specialty Start Date End Date Larry Bedolla MD [address] [place] [address] PCP - General 12/08/20 01/18/25 Monika Hernandez APRN [address] [place] [address] PCP - General 01/19/25 Sary Brannon APRN 1210 [facility] [address] [place] [address] Referring Physician Gastroenterology 01/07/25 documented as of this encounter
--- OUTSIDE RECORDS SUMMARY | 2025-06-06 09:38 | XMS_ITS | Clinical Summary ---
[facility] [address] [place] [address] Care Team Providers Care Veneer Jointer Name Role Phone Sherri Adkins APRN Primary [...] VACCINE 02/25/2025 Insurance [employer] Care Teams Veneer Jointer Relationship Specialty Start Date End Date Sherri Adkins APRN [address] [place] [address] PCP - General Family Medicine 03/12/16
--- OUTSIDE RECORDS SUMMARY | 2025-06-06 09:38 | XMS_ITS | Encounter Summary ---
Author Organization Healthcare Address [address] [place] [address] Care Team Providers Care Cement Finishing Supervisor Name Role Phone Larry Bedolla MD Primary Care Provider + [phone] Sary Brannon APRN Unavailable [phone] Monika Hernandez APRN Primary Care Provider + [phone] Encounter Details Date Type Department Care Team (Late st Contact Info) Description 11/30/2024 Orders Only External Location [address] [place] [address] Provider, External Social History Tobacco Use Types [...] documented as of this encounter Care Teams Cement Finishing Supervisor Relationship Specialty Start Date End Date Larry Bedolla MD [address] [place] [address] PCP - General 12/08/20 01/18/25 Monika Hernandez APRN [address] [place] [address] PCP - General 01/19/25 Sary Brannon APRN 1210 [facility] [address] [place] [address] Referring Physician Gastroenterology 01/07/25 documented as of this encounter
--- OUTSIDE RECORDS SUMMARY | 2025-06-06 09:38 | XMS_ITS | Encounter Summary ---
Author Organization Healthcare Address [address] [place] [address] Care Team Providers Care Software Performance Engineer Name Role Phone Larry Bedolla MD Primary Care Provider + [phone] Sary Brannon APRN Unavailable +[phone] Monika Hernandez APRN Primary Care Provider + [phone] Encounter Details Date Type Department Care Team (Late st Contact Info) Description 04/02/2017 Orders Only External Location [address] [place] [address] Provider, External Social History Tobacco Use Types [...] on filedocumented in this encounter Care Teams Software Performance Engineer Relationship Specialty Start Date End Date Larry Bedolla MD [address] [place] [address] PCP - General 12/08/20 01/18/25 Monika Hernandez APRN [address] [place] [address] PCP - General 01/19/25 Sary Brannon APRN [address] [facility] [address] [place] [address] Referring Physician Gastroenterology 01/07/25 documented as of this encounter
--- OUTSIDE RECORDS SUMMARY | 2025-06-06 09:38 | XMS_ITS | Encounter Summary ---
Author Organization Healthcare Address [address] [place] [address] Care Team Providers Care Financial Systems Director Name Role Phone Larry Bedolla MD Primary Care Provider + [phone] Sary Brannon APRN Unavailable +[phone] Monika Hernandez APRN Primary Care Provider + [phone] Encounter Details Date Type Department Care Team (Late st Contact Info) Description 12/31/2024 Orders Only External Location [address] [place] [address] Monika Hernandez APRN [address] [place], [place] [id number] Social History Tobacco Use Types Packs/Day Years [...] 12/31/2024 7:33 AM EDT Monika Hernandez APRN [facility] [place] Final Result documented in this encounter Visit Diagnoses Not on filedocumented in this encounter Additional Health Concerns Assessment Noted Time A fall risk assessment has been complete d for the patient 01/02/2022 1:17 PM EDT A Body Mass Index follow-up plan has been documented for the patient 11/13/2022 11:41 AM EDT documented as of this encounter Care Teams Financial Systems Director Relationship Specialty Start Date End Date Larry Bedolla MD [address] [place] [address] PCP - General 12/08/20 01/18/25 Monika Hernandez APRN [address] [place] [address] PCP - General 01/19/25 Sary Brannon APRN 1210 [facility] [address] [place] [address] Referring Physician Gastroenterology 01/07/25 documented as of this encounter
--- OUTSIDE RECORDS SUMMARY | 2025-06-06 09:38 | XMS_ITS | Clinical Summary ---
Author Organization [facility] [place] [address] Care Team Providers Care Tug Boat Engineer Name Role Phone Unavailable Primary Care [...]
--- OUTSIDE RECORDS SUMMARY | 2025-06-06 09:38 | XMS_ITS | Encounter Summary ---
Author Organization Healthcare Address [address] [place] [address] Care Team Providers Care Piece Goods Packer Name Role Phone Larry Bedolla MD Primary Care Provider + [phone] Sary Brannon APRN Unavailable +[phone] Monika Hernandez APRN Primary Care Provider + [phone] Encounter Details Date Type Department Care Team (Late st Contact Info) Description 12/04/2024 Orders Only External Location [address] [place] [address] Provider, External Social History Tobacco Use Types [...] documented as of this encounter Care Teams Piece Goods Packer Relationship Specialty Start Date End Date Larry Bedolla MD [address] [place] [address] PCP - General 12/08/20 01/18/25 Monika Hernandez APRN [address] [place] [address] PCP - General 01/19/25 Sary Brannon APRN 1210 [facility] [address] [place] [address] Referring Physician Gastroenterology 01/07/25 documented as of this encounter
--- OUTSIDE RECORDS SUMMARY | 2025-06-06 09:38 | XMS_ITS | Encounter Summary ---
Author Organization Healthcare Address [address] [place] [address] Care Team Providers Care Hide Buyer Name Role Phone Larry Bedolla MD Primary Care Provider + [phone] Sary Brannon APRN Unavailable [phone] Monika Hernandez APRN Primary Care Provider + [phone] Encounter Details Date Type Department Care Team (Late st Contact Info) Description 12/02/2024 Orders Only External Location [address] [place] [address] Provider, External Social History Tobacco Use Types [...] documented as of this encounter Care Teams Hide Buyer Relationship Specialty Start Date End Date Larry Bedolla MD [address] [place] [address] PCP - General 12/08/20 01/18/25 Monika Hernandez APRN [address] [place] [address] PCP - General 01/19/25 Sary Brannon APRN [address] [place] [address] [address] [place] [address] Referring Physician Gastroenterology 01/07/25 documented as of this encounter
--- OUTSIDE RECORDS SUMMARY | 2025-06-06 09:38 | XMS_ITS | Encounter Summary ---
Author Organization Healthcare Address [address] [place] [address] Care Team Providers Care Sales Operations Director Name Role Phone Larry Bedolla MD Primary Care Provider + [phone] Sary Brannon APRN Unavailable +[phone] Monika Hernandez APRN Primary Care Provider + [phone] Encounter Details Date Type Department Care Team (Late st Contact Info) Description 10/26/2024 Orders Only External Location [address] [place] [address] Provider, External Social History Tobacco Use Types [...] documented as of this encounter Care Teams Sales Operations Director Relationship Specialty Start Date End Date Larry Bedolla MD [address] [place] [address] PCP - General 12/08/20 01/18/25 Monika Hernandez APRN [address] [place] [address] PCP - General 01/19/25 Sary Brannon APRN 1210 [facility] [address] [place] [address] Referring Physician Gastroenterology 01/07/25 documented as of this encounter
--- OUTSIDE RECORDS SUMMARY | 2025-06-06 09:38 | XMS_ITS | Encounter Summary ---
Author Organization Healthcare Address [address] [place] [address] Care Team Providers Care Tax Revenue Officer Name Role Phone Larry Bedolla MD Primary Care Provider + [phone] Sary Brannon APRN Unavailable [phone] Monika Hernandez APRN Primary Care Provider + [phone] Encounter Details Date Type Department Care Team (Late st Contact Info) Description 12/10/2024 Orders Only External Location [address] [place] [address] Provider, External Social History Tobacco Use Types [...] documented as of this encounter Care Teams Tax Revenue Officer Relationship Specialty Start Date End Date Larry Bedolla MD [address] [place] [address] PCP - General 12/08/20 01/18/25 Monika Hernandez APRN [address] [place] [address] PCP - General 01/19/25 Sary Brannon APRN 1210 [facility] [address] [place] [address] Referring Physician Gastroenterology 01/07/25 documented as of this encounter
--- OUTSIDE RECORDS SUMMARY | 2025-06-06 09:38 | XMS_ITS | Encounter Summary ---
Author Organization Healthcare Address [address] 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, unspecified vessel or lesion type (CMS/[facility]) Social History Tobacco Use Types Packs/Day Years [...] (mild) Microalbuminuria Proteinuria 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, unspecified vessel or lesion type documented in this encounter Additional Health Concerns Assessment Noted Time A fall risk assessment has been complete d for the patient 01/02/2022 1:17 PM EDT A Body Mass Index follow-up plan has been documented for the patient 11/13/2022 11:41 AM EDT documented as of this encounter Care Teams Payroll Accounting Clerk Relationship Specialty Start Date End Date Larry Bedolla MD [address] [place], [place] [address] PCP - General 12/08/20 01/18/25 Monika Hernandez APRN [address] [place], [place] [address] PCP - General 01/19/25 Sary Brannon APRN 1210 [facility] [address] [place], [place] [address] Referring Physician Gastroenterology 01/07/25 documented as of this encounter
--- OUTSIDE RECORDS SUMMARY | 2025-06-06 09:38 | XMS_ITS | Encounter Summary ---
Author Organization Healthcare Address [address] [place] [address] Care Team Providers Care Television Inspector Name Role Phone Larry Bedolla MD Primary Care Provider + [phone] Sary Brannon APRN Unavailable [phone] Monika Hernandez APRN Primary Care Provider + [phone] Encounter Details Date Type Department Care Team (Late st Contact Info) Description 12/06/2024 Orders Only External Location [address] [place] [address] Provider, External Social History Tobacco Use Types [...] documented as of this encounter Care Teams Television Inspector Relationship Specialty Start Date End Date Larry Bedolla MD [address] [place] [address] PCP - General 12/08/20 01/18/25 Monika Hernandez APRN [address] [place] [address] PCP - General 01/19/25 Sary Brannon APRN 1210 [facility] [address] [place] [address] Referring Physician Gastroenterology 01/07/25 documented as of this encounter
--- OUTSIDE RECORDS SUMMARY | 2025-06-06 09:38 | XMS_ITS | Encounter Summary ---
Author Organization Healthcare Address [address] [place] [address] Care Team Providers Care Telecommunications Clerk Name Role Phone Larry Bedolla MD Primary Care Provider + [phone] Sary Brannon APRN Unavailable [phone] Monika Hernandez APRN Primary Care Provider + [phone] Encounter Details Date Type Department Care Team (Late st Contact Info) Description 04/30/2018 Orders Only External Location [address] [place] [address] Provider, External Social History Tobacco Use Types [...] on filedocumented in this encounter Care Teams Telecommunications Clerk Relationship Specialty Start Date End Date Larry Bedolla MD [address] [place] [address] PCP - General 12/08/20 01/18/25 Monika Hernandez APRN [address] [place] [address] PCP - General 01/19/25 Sary Brannon APRN 1210 [facility] [address] [place] [address] Referring Physician Gastroenterology 01/07/25 documented as of this encounter
--- OUTSIDE RECORDS SUMMARY | 2025-06-06 09:38 | XMS_ITS | Encounter Summary ---
Author Organization Healthcare Address [address] [place] [address] Care Team Providers Care Scratch Brusher Name Role Phone Larry Bedolla MD Primary Care Provider + [phone] Sary Brannon APRN Unavailable [phone] Monika Hernandez APRN Primary Care Provider + [phone] Encounter Details Date Type Department Care Team (Late st Contact Info) Description 11/29/2024 Orders Only External Location [address] [place] [address] Provider, External Social History Tobacco Use Types [...] documented as of this encounter Care Teams Scratch Brusher Relationship Specialty Start Date End Date Larry Bedolla MD [address] [place] [address] PCP - General 12/08/20 01/18/25 Monika Hernandez APRN [address] [place] [address] PCP - General 01/19/25 Sary Brannon APRN [address] [place] [address] [address] [place] [address] Referring Physician Gastroenterology 01/07/25 documented as of this encounter
--- OUTSIDE RECORDS SUMMARY | 2025-06-06 09:38 | XMS_ITS | Encounter Summary ---
Author Organization Healthcare Address [address] [place] [address] Care Team Providers Care Appeals Reviewer Veteran Name Role Phone Sary Brannon APRN Unavailable + [phone] Monika Hernandez APRN Primary Care Provider + [phone] Reason for Visit * Reason Comments Med Refill Encounter Details Date Type Department Care Team (Late st Contact Info) Description 06/02/2025 Refill [facility] [address] [place] [address] Angel Pulliam MBBS [address] [place] [address] Social History Tobacco Use Types Packs/Day Years [...] documented as of this encounter Care Teams Appeals Reviewer Veteran Relationship Specialty Start Date End Date Monika Hernandez APRN [address] [place] [address] PCP - General 01/19/25 Sary Brannon APRN 1210 [facility] [address] [place] [address] Referring Physician Gastroenterology 01/07/25 documented as of this encounter
--- OUTSIDE RECORDS SUMMARY | 2025-06-06 09:38 | XMS_ITS | Clinical Summary ---
Author Organization [employer] ([place], [place], [place], [place], [place]) Address [address] [place] [address] Care Team Providers Care Beer Merchant Name Role Phone Provider, Not In System SILO ERECTOR Primary Care Provid er Unavailable Allergies No [...] the past 12 months, has t he [employer], gas, oil, or water company threatened to [...] your living situation today? I have a [facility] place to live 11/30/2024 Think about the [...] speak a language other than Italian at [facility]? No 11/30/2024 Do [...] 1-dose series) 2022 Medicare IPPE (Welcome to [place] [facility]) [id number] 07/28/2024 COVID-19 VACCINE ( season) [...] - 5.6 % 11/30/2024 9:17 AM EDT [facility] Comment: Hemoglobin A1C levels are related to mean glucose during the preceding 2-3 months. Less than 7% demonstrates glycemic control in diabetic patients. Hemoglobin AlC % Suggested Diagnosis > or = 6.5 Diabetic 5.7 - 6.4 Prediabetic <5.7 Non-diabetic eAVG Glucose 93.93 70 - 126 mg/dL 11/30/2024 9:17 AM EDT [facility] Blood Venipuncture / Unknown 11/30/2024 8:20 AM EDT 11/30/2024 9:07 AM EDT us Mikhail Hurtado MD LAB BLOOD ORDERABLES Final Resul t [facility] [address] [phone] from Last 3 Months or Most Recently Relevant to Health Maintenance Insurance [facility] AD[facility] Advance Directives For more information, please contact: [phone] * Full Code (Latest Code Status on File) Date Activated Date Inactivated Comments 11/30/2024 2:06 AM 12/14/2024 6:30 PM Care Teams Beer Merchant Relationship Specialty Start Date End Date Provider, Not In System, ÁNGEL LONG PCP - General 12/14/24
--- OUTSIDE RECORDS SUMMARY | 2025-06-06 09:39 | XMS_ITS | Encounter Summary ---
Author Organization Healthcare Address [address] [place] [address] Care Team Providers Care Field Clerk Name Role Phone Sary Brannon APRN Unavailable + [phone] Monika Hernandez APRN Primary Care Provider + [phone] Reason for Visit * Reason Comments Med Refill Encounter Details Date Type Department Care Team (Late st Contact Info) Description 05/16/2025 Refill [facility] [address] [place] [address] Angel Pulliam MBBS [address] [place] [address] Social History Tobacco Use Types Packs/Day Years [...] documented as of this encounter Care Teams Field Clerk Relationship Specialty Start Date End Date Monika Hernandez APRN [address] [place] [address] PCP - General 01/19/25 Sary Brannon APRN 1210 [facility] [address] [place] [address] Referring Physician Gastroenterology 01/07/25 documented as of this encounter
--- OUTSIDE RECORDS SUMMARY | 2025-06-06 09:39 | XMS_ITS | Clinical Summary ---
Author Organization Healthcare Address [address] [place] [address] Care Team Providers Care Dry Cell Assembly Supervisor Name Role Phone Sary Brannon CALL CENTRE SUPERVISOR Unavailable [phone] Monika Hernandez APRN Primary Care Provider [phone] Allergies No known active allergies Medications bisoprolol [...] misc 3 INJECTIONS DAILY Active HYDROcodone-aceta minophen ([place]) 10-325 MG tablet Active spironolactone (Aldactone) 25 MG tablet Take 0.5 tablets by mouth daily. Active furosemide (Lasix) 40 MG tablet Take by mouth 2 (two) times a day. Active Insulin Lispro (HUMALOG IJ) Inject as directed. Active dapagliflozin (Farxiga) 5 MG tabletIndications :CKD (chronic kidney disease) stage 2, GFR 60-89 ml/min,Microalbum inuria,Coronary artery disease involving [place] heart with angina pectoris and documented spasm, [...] MOUTH ONCE A DAY 30 tablet 1 Active GNP Natural Fiber 28.3 % powder Mix 1 tablespoon (12 GRAM) into EIGHT ounces of water AND drink BY MOUTH ONCE A DAY 575 g 1 Active Aspirin Low Dose 81 MG EC tablet Take 1 tablet by mouth daily. 30 tablet 1 025 2024 Discontinued psyllium (Metamucil Smooth Texture) 58.6 % powder Take 1 packet by mouth daily. 1040 g 025 2024 Discontinued Active Problems Problem Noted [...] Encounters Date Type Department Care Team Description 06/02/2025 Refill [facility] [address] [place] [phone] Angel Pulliam MBBS 05/16/2025 Refill [facility] [address] [place] [phone] Angel Pulliam MBBS 04/14/2025 Telephone [facility] [address] [place] [phone] Varun Bass from Last 3 Months Immunizations [...] 06/04/2022 01/02/2022, 11/21/2021 [facility]-Depression Screening 01/02/2023 01/02/2022 FOC-RYXYI-30 Vaccine ( - season) 2025 05/13/2021, 04/15/2021, 11/08/2020 [facility]-Influenza [...] Antibody Negative Negative 02/22/2025 8:29 AM EDT [facility] Blood Venous blood specimen / Unknown Venipuncture / Unknown 02/22/2025 7:18 AM EDT 02/22/2025 7:48 AM EDT us Edil Kiran MD LAB BLOOD ORDERABLES Final Resul t [facility] [address] [place] [address] * (ABNORMAL) Hemoglobin A1c (01/24/2016 1:47 PM [...] MEDICAID WELL[employer] MEDICARE WELL[employer] MEDICAID Care Teams Dry Cell Assembly Supervisor Relationship Specialty Start Date End Date Monika Hernandez APRN 439 [facility] [place] [address] PCP - General 01/19/25 Sary Brannon APRN 1210 [facility] [address] [place] [address] Referring Physician Gastroenterology 01/07/25
[2025-06-06 10:21] VITALS: BMI 26.3
[2025-06-06 10:38] LABS: Creatinine Clearance Estimated 28 mL/min (50-200); Creatinine,Serum 2.50 mg/dl (0.52-1.04); Estimated Glomerular Filt Rate 19 ml/min (>60); GFR (African American) 24 ML/MIN (>60)
[2025-06-06 11:26] VITALS: BP 146/68; PULSE 98; RESP 18; O2SAT 100
[2025-06-06] MEDS: ALBUMIN HUMAN 12.5 GM/50 ML BAG IV ×5 (11:26→13:14)
[2025-06-06 12:15] VITALS: RESP 18; O2SAT 100
[2025-06-06 12:50] VITALS: RESP 18; O2SAT 100
[2025-06-06 13:14] VITALS: RESP 18; O2SAT 100
[2025-06-06 13:55] VITALS: BP 127/78; PULSE 98; RESP 18; O2SAT 98
== END 2025-06-06 23:59 | disposition home or self-care (01) ==
LOC: RAD 09:26 → INF 10:45
PROVIDERS: PCP Family Medicine; Visit Provider Nurse Practitioner Family
DX: R18.8 Other ascites (principal)
CPT/HCPCS: 49083; 82565; 96365; 96366; P9047

== ENCOUNTER 2025-06-10 07:48 | Outpatient (CLI) | payer MEDICARE, MEDICAID, SELFPAY ==
--- OUTSIDE RECORDS SUMMARY | 2018-11-16 05:00 | XMS_ITS | Continuity of Care Document ---
Author Organization [facility] Address [address] [place] [phone] Phone Care Team Providers Care Bridge Welder Name Role Phone Dane Pink MD Unavailable Unavailable Allergies, Adverse Reactions, Alerts Substance Reaction Status Criticality PENICILLIN Active No Information Medications Medication Instructions Dosage Effective Dates (start - stop) Status Comments BRIMONIDINE 0.2% EYE DROP INSTILL 1 DROP BY OPHTHALMIC ROUTE 2 TIMES EVERY DAY INTO THE LEFT EYE - Active prednisolone acetate 1 % eye drops,suspension Use QID as directed. - Active Nexium 40 mg capsule,delayed release take 1 capsule by oral route every day 40 MG - Active Klor-Con 10 mEq tablet,extended release take 2 tablet by oral route 2 times every day with food 20 MEQ - Active metformin 500 mg tablet take 1 tablet by oral route 2 times every day with morning and evening meals 500 MG - Active risperidone 1 mg tablet take 1 tablet by oral route every day 1 MG - Active pravastatin 40 mg tablet take 1 tablet by oral route every day 40 MG - Active lisinopril 20 mg tablet take 1 tablet by oral route every day 20 MG - Active loratadine 10 mg capsule - Active BRIMONIDINE 0.2% EYE DROP INSTILL 1 DROP BY OPHTHALMIC ROUTE 2 TIMES EVERY DAY INTO THE LEFT EYE - No Longer Active brimonidine 0.2 % eye drops instill 1 drop by ophthalmic route 2 times every day into the left eye - No Longer Active Procedures Procedure Date OFFICE/OUTPATIENT VISIT, EST EYE EXAM, Comprehensive, New Advance Directives Directive Yes / No Effective Date File Name No Information Encounters Encounter Description Practice Location Reason(s) For Visit Diagnoses Date Provider Providers Copied on Encounter Connor Cameron [facility], [address] [place] [address], [id number], tel:[phone] [place]ENNIFER Torres [place] No Information 9 Apryl Vela. [address] [place] [address], [id number] , . tel:[phone] OFFICE/OUTPA TIENT VISIT, EST Connor Cameron [facility], [address] [place] [address], [address] [place] [address], tel:[phone] [place] inflammation ck OS (chief complaint) Iritis, recurrent, left eye 9 Apryl Vela. [address] [place] [address], [address] [place] [address] , . tel:[phone] Referring Provider: Self Referred Jose C Connor Cameron [facility], [address] [place] [address], [id number], tel:[phone] JENNIFER Torres [place] Anterior Seg ck (chief complaint) Iritis, recurrent, left eye 9 Apryl Vela. [address] [place] [address], [id number] , . tel:[phone] Referring Provider: Maria Teresa Santos, [employer] [address] [place] [address], [facility]. tel:[phone] Family History Family Member Type Diagnosis Age At Onset Problem (finding) Family history of Diabe reynold mellitus Problem (finding) Family history of Cardi ovascular disease Problem (finding) Family history of glauc haroon Payers Payer name Insurance type Covered constitution party ID Authoriza tion(s) Medicare [facility] [id number] Social History Type Description Quantity Date Captured Comments Sex Female Smoking Status No Information Chief Complaint And Reason For Visit No Information Reason For Referral Reason For Referral No Information History Of Present Illness Encounter Date Complaint History Of Prese nt Illness inflammation ck OS Patient's sis ter states patient is doing better with OS. Has some watering. Using drops as directed./easPrednisolone Acetate QID OSBrimonidine BID OS Anterior Seg ck Referred by Dr Braxton nunez for anterior segment evaluation, possible narrow angle or iris adhesion. The patient's caregiver states that they have been treating the left eye since April of last year. It was first treated for infection with Pred Eric and then about a month later treated as an allergy. The patient states that her eyes itch badly and they are sticky when she wakes up in the morning. She is very sensitive to any light. /nr Functional Status Date Functional Assessmen t No Information Medications Administered Medication Instructions Dosage Effective Dates (start - stop) Status Comments BRIMONIDINE 0.2% EYE DROP INSTILL 1 DROP BY OPHTHALMIC ROUTE 2 TIMES EVERY DAY INTO THE LEFT EYE - No Longer Active Instructions Date Instruction Additional Infor gilberto Impression/Plan Related to Iriti s, recurrent, left eye Impression/Plan Related to Iriti s, recurrent, left eye Assessments Type Assessment Date No Information Patient Care Teams Name Effective Dates (start - stop) Status Members No Information
--- OUTSIDE RECORDS SUMMARY | 2025-06-10 07:51 | XMS_ITS | Encounter Summary ---
Author Organization Healthcare Address [address] [place] [address] Care Team Providers Care Educational Sign Language Interpreter Name Role Phone Larry Bedolla MD Primary Care Provider + [phone] Sary Brannon APRN Unavailable [phone] Monika Hernandez APRN Primary Care Provider [phone] Encounter Details Date Type Department Care Team (Late st Contact Info) Description 12/31/2024 Orders Only External Location [address] [place] [address] Monika Hernandez APRN [address] [place], [place] [address] Social History Tobacco Use Types Packs/Day Years [...] 12/31/2024 7:33 AM EDT Monika Hernandez APRN [facility] US PROCEDURES Final Result documented in this encounter Visit Diagnoses Not on filedocumented in this encounter Additional Health Concerns Assessment Noted Time A fall risk assessment has been complete d for the patient 01/02/2022 1:17 PM EDT A Body Mass Index follow-up plan has been documented for the patient 11/13/2022 11:41 AM EDT documented as of this encounter Care Teams Educational Sign Language Interpreter Relationship Specialty Start Date End Date Larry Bedolla MD [address] [place] [address] PCP - General 12/08/20 01/18/25 Monika Hernandez APRN [address] [place] [address] PCP - General 01/19/25 Sary Brannon APRN 1210 [facility] [address] [place] [address] Referring Physician Gastroenterology 01/07/25 documented as of this encounter
--- OUTSIDE RECORDS SUMMARY | 2025-06-10 07:51 | XMS_ITS | Encounter Summary ---
Author Organization Healthcare Address [address] 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, unspecified vessel or lesion type (CMS/[facility]) Social History Tobacco Use Types Packs/Day Years [...] (mild) Microalbuminuria Proteinuria 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, unspecified vessel or lesion type documented in this encounter Additional Health Concerns Assessment Noted Time A fall risk assessment has been complete d for the patient 01/02/2022 1:17 PM EDT A Body Mass Index follow-up plan has been documented for the patient 11/13/2022 11:41 AM EDT documented as of this encounter Care Teams Digital Account Manager Relationship Specialty Start Date End Date Larry Bedolla MD [address] [place], [place] [address] PCP - General 12/08/20 01/18/25 Monika Hernandez APRN [address] [place], [place] [address] PCP - General 01/19/25 Sary Brannon APRN [facility]10 [facility] [address] [place], [place] [address] Referring Physician Gastroenterology 01/07/25 documented as of this encounter
--- OUTSIDE RECORDS SUMMARY | 2025-06-10 07:51 | XMS_ITS | Encounter Summary ---
Author Organization Healthcare Address [address] [place] [address] Care Team Providers Care Lion Trainer Name Role Phone Larry Bedolla MD Primary Care Provider + [phone] Sary Brannon APRN Unavailable [phone] Monika Hernandez APRN Primary Care Provider + [phone] Encounter Details Date Type Department Care Team (Late st Contact Info) Description 12/02/2024 Orders Only External Location [address] [place] [address] Provider, External Social History Tobacco Use Types [...] documented as of this encounter Care Teams Lion Trainer Relationship Specialty Start Date End Date Larry Bedolla MD [address] [place] [address] PCP - General 12/08/20 01/18/25 Monika Hernandez APRN [address] [place] [address] PCP - General 01/19/25 Sary Brannon APRN [address] [place] [address] [address] [place] [address] Referring Physician Gastroenterology 01/07/25 documented as of this encounter
--- OUTSIDE RECORDS SUMMARY | 2025-06-10 07:51 | XMS_ITS | Encounter Summary ---
Author Organization Healthcare Address [address] [place] [address] Care Team Providers Care Coil Spring Assembler Name Role Phone Larry Bedolla MD Primary Care Provider + [phone] Sary Brannon APRN Unavailable [phone] Monika Hernandez APRN Primary Care Provider + [phone] Encounter Details Date Type Department Care Team (Late st Contact Info) Description 12/03/2024 Orders Only External Location [address] [place] [address] Provider, External Social History Tobacco Use Types [...] documented as of this encounter Care Teams Coil Spring Assembler Relationship Specialty Start Date End Date Larry Bedolla MD [address] [place] [address] PCP - General 12/08/20 01/18/25 Monika Hernandez APRN [address] [place] [address] PCP - General 01/19/25 Sary Brannon APRN 1210 [facility] [address] [place] [address] Referring Physician Gastroenterology 01/07/25 documented as of this encounter
--- OUTSIDE RECORDS SUMMARY | 2025-06-10 07:51 | XMS_ITS | Referral Summary ---
Author Organization [employer] ([place], [place], [place], [place], [place]) Address [address] [place] [address] Care Team Providers Care Shrimp Header Name Role Phone Provider, Not In System CARD HAND Primary Care Provid er Unavailable Allergies No [...] the past 12 months, has t he [employer], gas, oil, or water company threatened to [...] your living situation today? I have a [facility] place to live 11/30/2024 Think about [...] Do you speak a language other than [facility]? No 11/30/2024 Do you want help [...] [facility] [address] [phone] from Last 3 Months or Most Recently Relevant to Health Maintenance Insurance [facility] Advance Directives For more information, please contact: [phone] * Full Code (Latest Code Status on File) Date Activated Date Inactivated Comments 11/30/2024 2:06 AM 12/14/2024 6:30 PM Care Teams Shrimp Header Relationship Specialty Start Date End Date Provider, Not In System, ÁNGEL LONG PCP - General 12/14/24
--- OUTSIDE RECORDS SUMMARY | 2025-06-10 07:51 | XMS_ITS | Encounter Summary ---
Author Organization Healthcare Address [address] [place] [address] Care Team Providers Care Ms Sql Server Developer Name Role Phone Larry Bedolla MD Primary Care Provider + [phone] Sary Brannon APRN Unavailable +[phone] Monika Hernandez APRN Primary Care Provider [phone] Reason for Referral * Consultation (Routine) - Closed Specialty Diagnoses / Procedures Referred By Mayela may Referred To Contact Hepatology Diagnoses Bilious vomiting with nausea Anticentromere antibodies present Thrombopenia Stage 3 hepatic fibrosis Raul Kincaid PA [facility] [place] [address] Phone: tel: fax: Referral ID Status Reason Start Date Expiration Date V isits Requested Visits Authorized [id number] Closed Specialty Services Required 09/27/2021 03/29/2023 1 1 Encounter Details Date Type Department Care Team (Late st Contact Info) Description 09/27/2021 Community [facility] [address] [place] [address] Raul Kincaid PA [address] [place] [address] Bilious vomiting with nausea (Primary [...] fibrosis documented in this encounter Care Teams Ms Sql Server Developer Relationship Specialty Start Date End Date Larry Bedolla MD [address] [place] [address] [id number] PCP - General 12/08/20 01/18/25 Monika Hernandez APRN [address] [place] [address] PCP - General 01/19/25 Sary Brannon APRN [address] [place] [address] [address] [place] [address] Referring Physician Gastroenterology 01/07/25 documented as of this encounter
--- OUTSIDE RECORDS SUMMARY | 2025-06-10 07:51 | XMS_ITS | Encounter Summary ---
Author Organization Healthcare Address [address] [place] [address] Care Team Providers Care Vice President Process Name Role Phone Larry Bedolla MD Primary Care Provider + [phone] Sary Brannon REGISTRATION REPRESENTATIVE Unavailable +[phone] Monika Hernandez APRN Primary Care Provider [phone] Reason for Visit * Reason Comments Med Refill Encounter Details Date Type Department Care Team (Late st Contact Info) Description 04/12/2021 [facility] [address] [place] [address] Lina Lowe, REGISTRATION REPRESENTATIVE [address] [facility] [address] [place] [address] Social History Tobacco Use Types [...] on filedocumented in this encounter Care Teams Vice President Process Relationship Specialty Start Date End Date Larry Bedolla MD [address] [place], [place] [id number] PCP - General 12/08/20 01/18/25 Monika Hernandez APRN [address] [place] [address] PCP - General 01/19/25 Sary Brannon APRN 1210 [facility] [address] [place] [address] Referring Physician Gastroenterology 01/07/25 documented as of this encounter
--- OUTSIDE RECORDS SUMMARY | 2025-06-10 07:51 | XMS_ITS | Encounter Summary ---
Author Organization Healthcare Address [address] [place] [address] Care Team Providers Care Art Framing Manager Name Role Phone Larry Bedolla MD Primary Care Provider + [phone] Sary Brnanon APRN Unavailable +[phone] Monika Hernandez APRN Primary Care Provider [phone] Encounter Details Date Type Department Care Team (Late st Contact Info) Description 01/21/2022 Community [facility] Community Practice [address] [place] [address] Larry Bedolla MD [address] [place], [place] [id number] Central stenosis of spinal canal (Primary Dx) [...] documented as of this encounter Care Teams Art Framing Manager Relationship Specialty Start Date End Date Larry Bedolla MD [address] [place] [address] PCP - General 12/08/20 01/18/25 Monika Hernandez APRN [address] [place], [place] [id number] PCP - General 01/19/25 Sary Brannon APRN 1210 [facility] [address] [place] [address] Referring Physician Gastroenterology 01/07/25 documented as of this encounter
--- OUTSIDE RECORDS SUMMARY | 2025-06-10 07:51 | XMS_ITS | Encounter Summary ---
Author Organization Healthcare Address [address] [place] [address] Care Team Providers Care Director Medical Surgical Name Role Phone Larry Bedolla MD Primary Care Provider + [phone] Sary Brannon APRN Unavailable [phone] Monika Hernandez APRN Primary Care Provider + [phone] Encounter Details Date Type Department Care Team (Late st Contact Info) Description 12/06/2024 Orders Only External Location [address] [place] [address] Provider, External Social History Tobacco Use Types [...] as of this encounter Care Teams Director Medical Surgical Relationship Specialty Start Date End Date Larry Bedolla MD [address] [place] [address] PCP - General 12/08/20 01/18/25 Monika Hernandez APRN [address] [place] [address] PCP - General 01/19/25 Sary Brannon APRN 1210 [facility] [address] [place] [address] Referring Physician Gastroenterology 01/07/25 documented as of this encounter
--- OUTSIDE RECORDS SUMMARY | 2025-06-10 07:51 | XMS_ITS | Clinical Summary ---
Author Organization [facility] [place] [address] Care Team Providers Care Hospital Nurse Name Role Phone Unavailable Primary Care Provider [...]
--- OUTSIDE RECORDS SUMMARY | 2025-06-10 07:51 | XMS_ITS | Clinical Summary ---
Author Organization [facility] ([place], [place], [place], [place], [place]) Address [address] [place] [address] Care Team Providers Care Electric Deicer Inspector Name Role Phone Provider, Not In System PROFILE GRINDER Primary Care Provid er Unavailable Allergies No [...] the past 12 months, has t he [employer], gas, oil, or water company threatened to [...] your living situation today? I have a [facility] place to live 11/30/2024 Think about [...] Do you speak a language other than [facility]? No 11/30/2024 Do you want [...] 1-dose series) 2022 Medicare IPPE (Welcome to [facility]) [id number] 07/28/2024 COVID-19 VACCINE ( season) [...] Resul t [facility] [address] [phone] from Last 3 Months or Most Recently Relevant to Health Maintenance Insurance [facility] AD[facility] [place] [address] Advance Directives For more information, please contact: [phone] * Full Code (Latest Code Status on File) Date Activated Date Inactivated Comments 11/30/2024 2:06 AM 12/14/2024 6:30 PM Care Teams Electric Deicer Inspector Relationship Specialty Start Date End Date Provider, Not In System, ÁNGEL LONG PCP - General 12/14/24
--- OUTSIDE RECORDS SUMMARY | 2025-06-10 07:51 | XMS_ITS | Encounter Summary ---
Author Organization Healthcare Address [address] [place] [address] Care Team Providers Care Builder'S Labourer Name Role Phone Larry Bedolla MD Primary Care Provider + [phone] Sary Brannon APRN Unavailable [phone] Monika Hernandez APRN Primary Care Provider + [phone] Encounter Details Date Type Department Care Team (Late st Contact Info) Description 12/04/2024 Orders Only External Location [address] [place] [address] Provider, External Social History Tobacco Use Types [...] documented as of this encounter Care Teams Builder'S Labourer Relationship Specialty Start Date End Date Larry Bedolla MD [address] [place] [address] PCP - General 12/08/20 01/18/25 Monika Hernandez APRN [address] [place] [address] PCP - General 01/19/25 Sary Brannon APRN 1210 [facility] [address] [place] [address] Referring Physician Gastroenterology 01/07/25 documented as of this encounter
--- OUTSIDE RECORDS SUMMARY | 2025-06-10 07:51 | XMS_ITS | Encounter Summary ---
Author Organization Healthcare Address [address] [place] [address] Care Team Providers Care Filenet P8 Developer Name Role Phone Larry Bedolla MD Primary Care Provider + [phone] Sary Brannon APRN Unavailable [phone] Monika Hernandez APRN Primary Care Provider + [phone] Encounter Details Date Type Department Care Team (Late st Contact Info) Description 12/10/2024 Orders Only External Location [address] [place] [address] Provider, External Social History Tobacco Use Types [...] documented as of this encounter Care Teams Filenet P8 Developer Relationship Specialty Start Date End Date Larry Bedolla MD [address] [place] [address] PCP - General 12/08/20 01/18/25 Monika Hernandez APRN [address] [place] [address] PCP - General 01/19/25 Sary Brannon APRN 1210 [facility] [address] [place] [address] Referring Physician Gastroenterology 01/07/25 documented as of this encounter
--- OUTSIDE RECORDS SUMMARY | 2025-06-10 07:51 | XMS_ITS | Encounter Summary ---
Author Organization Healthcare Address [address] [place] [address] Care Team Providers Care Head Host/Hostess Name Role Phone Larry Bedolla MD Primary Care Provider + [phone] Sary Brannon APRN Unavailable [phone] Monika Hernandez APRN Primary Care Provider + [phone] Encounter Details Date Type Department Care Team (Late st Contact Info) Description 12/10/2024 Orders Only External Location [address] [place] [address] Provider, External Social History Tobacco Use Types [...] as of this encounter Care Teams Head Host/Hostess Relationship Specialty Start Date End Date Larry Bedolla MD [address] [place] [address] PCP - General 12/08/20 01/18/25 Monika Hernandez APRN [address] [place] [address] PCP - General 01/19/25 Sary Brannon APRN 1210 [facility] [address] [place] [address] Referring Physician Gastroenterology 01/07/25 documented as of this encounter
--- OUTSIDE RECORDS SUMMARY | 2025-06-10 07:51 | XMS_ITS | Encounter Summary ---
Author Organization Healthcare Address [address] [place] [address] Care Team Providers Care Tile Conduit Layer Name Role Phone Sary Brannon APRN Unavailable + [phone] Monika Hernandez APRN Primary Care Provider + [phone] Reason for Visit * Reason Comments Med Refill Encounter Details Date Type Department Care Team (Late st Contact Info) Description 06/02/2025 Refill [facility] [address] [place] [address] Angel Pulliam MBBS [address] [place] [address] Social History Tobacco Use Types Packs/Day Years [...] documented as of this encounter Care Teams Tile Conduit Layer Relationship Specialty Start Date End Date Monika Hernandez APRN [address] [place] [address] PCP - General 01/19/25 Sary Brannon APRN 1210 [facility] [address] [place] [address] Referring Physician Gastroenterology 01/07/25 documented as of this encounter
--- OUTSIDE RECORDS SUMMARY | 2025-06-10 07:51 | XMS_ITS | Encounter Summary ---
Author Organization Healthcare Address [address] [place] [address] Care Team Providers Care Legal Summer Intern Name Role Phone Larry Bedolla MD Primary Care Provider + [phone] Sary Brannon APRN Unavailable [phone] Monika Hernandez APRN Primary Care Provider + [phone] Encounter Details Date Type Department Care Team (Late st Contact Info) Description 12/07/2024 Orders Only External Location [address] [place] [address] Provider, External Social History Tobacco Use Types [...] documented as of this encounter Care Teams Legal Summer Intern Relationship Specialty Start Date End Date Larry Bedolla MD [address] [place] [address] PCP - General 12/08/20 01/18/25 Monika Hernandez APRN [address] [place] [address] PCP - General 01/19/25 Sary Brannon APRN 1210 [facility] [address] [place] [address] Referring Physician Gastroenterology 01/07/25 documented as of this encounter
--- OUTSIDE RECORDS SUMMARY | 2025-06-10 07:51 | XMS_ITS | Encounter Summary ---
Author Organization Healthcare Address [address] [place] [address] Care Team Providers Care Sales Marketing Manager Name Role Phone Larry Bedolla MD Primary Care Provider + [phone] Sary Brannon APRN Unavailable [phone] Monika Hernandez APRN Primary Care Provider + [phone] Encounter Details Date Type Department Care Team (Late st Contact Info) Description 12/09/2024 Orders Only External Location [address] [place] [address] Provider, External Social History Tobacco Use Types [...] as of this encounter Care Teams Sales Marketing Manager Relationship Specialty Start Date End Date Larry Bedolla MD [address] [place] [address] PCP - General 12/08/20 01/18/25 Monika Hernandez APRN [address] [place] [address] PCP - General 01/19/25 Sary Brannon APRN 1210 [facility] [address] [place] [address] Referring Physician Gastroenterology 01/07/25 documented as of this encounter
--- OUTSIDE RECORDS SUMMARY | 2025-06-10 07:51 | XMS_ITS | Clinical Summary ---
[facility] Address [address] [place] [address] Care Team Providers Care Employee Development Specialist Name Role Phone Sherri Adkins APRN Primary [...] 2012 INFLUENZA VACCINE 02/25/2025 Insurance [place] [address] Care Teams Employee Development Specialist Relationship Specialty Start Date End Date Sherri Adkins APRN [address] [place] [address] PCP - General Family Medicine 03/12/16
--- OUTSIDE RECORDS SUMMARY | 2025-06-10 07:52 | XMS_ITS | Encounter Summary ---
Author Organization Healthcare Address [address] [place] [address] Care Team Providers Care Physician General Internal Medicine Name Role Phone Sary Brannon APRN Unavailable [phone] DavidMonika ÁNGEL Primary Care Provider + [phone] Encounter Details Date Type Department Care Team (Late st Contact Info) Description 04/14/2025 Telephone [facility] [address] [place] [address] Varun Bass Social History Tobacco Use Types [...] me a call back to r/s at [phone]. documented in this encounter Plan of Treatment [...] as of this encounter Care Teams Physician General Internal Medicine Relationship Specialty Start Date End Date Monika Hernandez APRN [address] [place] [address] PCP - General 01/19/[address] S[address] [facility] [address] [place] [address] Referring Physician Gastroenterology 01/07/25 documented as of this encounter
--- OUTSIDE RECORDS SUMMARY | 2025-06-10 07:52 | XMS_ITS | Encounter Summary ---
Author Organization Healthcare Address [address] [place] [address] Care Team Providers Care Group Exercise Instructor Name Role Phone Larry Bedolla MD Primary Care Provider + [phone] Sary Brannon APRN Unavailable [phone] Monika Hernandez APRN Primary Care Provider + [phone] Encounter Details Date Type Department Care Team (Late st Contact Info) Description 04/02/2017 Orders Only External Location [address] [place] [address] Provider, External Social History Tobacco Use Types [...] on filedocumented in this encounter Care Teams Group Exercise Instructor Relationship Specialty Start Date End Date Larry Bedolla MD [address] [place] [address] PCP - General 12/08/20 01/18/25 Monika Hernandez APRN [address] [place] [address] PCP - General 01/19/25 Sary Brannon APRN 1210 [facility] [address] [place] [address] Referring Physician Gastroenterology 01/07/25 documented as of this encounter
--- OUTSIDE RECORDS SUMMARY | 2025-06-10 07:52 | XMS_ITS | Clinical Summary ---
Author Organization Healthcare Address [address] [place] [address] Care Team Providers Care Corporate Tutor Name Role Phone Sary Brannon JACKET PREPARER Unavailable [phone] Monika Hernandez APRN Primary Care Provider [phone] Allergies No known active allergies Medications bisoprolol [...] misc 3 INJECTIONS DAILY Active HYDROcodone-aceta minophen ([place]) 10-325 MG tablet Active spironolactone (Aldactone) 25 MG tablet Take 0.5 tablets by mouth daily. Active furosemide (Lasix) 40 MG tablet Take by mouth 2 (two) times a day. Active Insulin Lispro (HUMALOG IJ) Inject as directed. 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 and documented spasm, [...] Type Department Care Team Description 06/02/2025 Refill [facility] [address] [place] [phone] Angel Pulliam MBBS 05/16/2025 Refill [facility] [address] [place] [phone] Angel Pulliam MBBS 04/14/2025 Telephone [facility] [address] [place] [phone] Varun Bass from Last 3 Months Immunizations [...] 06/04/2022 01/02/2022, 11/21/2021 UKY-Depression Screening 01/02/2023 01/02/2022 [id number] Vaccine ( - season) 2025 05/13/2021, 04/15/2021, [...] Antibody Negative Negative 02/22/2025 8:29 AM EDT [facility] Blood Venous blood specimen / Unknown Venipuncture / Unknown 02/22/2025 7:18 AM EDT 02/22/2025 7:48 AM EDT us Edil Kiran MD LAB BLOOD ORDERABLES Final Resul t [facility] [address] [place] [address] * (ABNORMAL) Hemoglobin A1c (01/24/2016 1:47 PM [...] MEDICAID [employer] Care Teams Corporate Tutor Relationship Specialty Start Date End Date Monika Hernandez APRN 439 [facility] [place] [address] PCP - General 01/19/25 Sary Brannon APRN 1210 [facility] [address] [place] [address] Referring Physician Gastroenterology 01/07/25
--- OUTSIDE RECORDS SUMMARY | 2025-06-10 07:52 | XMS_ITS | Encounter Summary ---
Author Organization Healthcare Address [address] [place] [address] Care Team Providers Care Social Science Professor Name Role Phone Larry Bedolla MD Primary Care Provider + [phone] Sary Brannon FENCE RIDER Unavailable [phone] Monika Hernandez APRN Primary Care Provider [phone] Encounter Details Date Type Department Care Team (Late st Contact Info) Description 01/03/2025 Community [facility] Community Practice [address] [place] [address] Sary Brannon, FENCE RIDER [address] [place], [place] [phone] Social History Tobacco Use Types Packs/Day Years [...] as of this encounter Care Teams Social Science Professor Relationship Specialty Start Date End Date Larry Bedolla MD [address] [place] [address] PCP - General 12/08/20 01/18/25 Monika Hernandez APRN [address] [place] [address] PCP - General 01/19/25 Sary Brannon APRN [address] [place] [address] Referring Physician Gastroenterology 01/07/25 documented as of this encounter
--- OUTSIDE RECORDS SUMMARY | 2025-06-10 07:52 | XMS_ITS | Encounter Summary ---
Author Organization Healthcare Address [address] [place] [address] Care Team Providers Care Carrot Harvester Name Role Phone Larry Bedolla MD Primary Care Provider + [phone] Sary Brannon APRN Unavailable [phone] Monika Hernandez APRN Primary Care Provider + [phone] Encounter Details Date Type Department Care Team (Late st Contact Info) Description 11/30/2024 Orders Only External Location [address] [place] [address] Provider, External Social History Tobacco Use Types [...] documented as of this encounter Care Teams Carrot Harvester Relationship Specialty Start Date End Date Larry Bedolla MD [address] [place] [address] PCP - General 12/08/20 01/18/25 Monika Hernandez APRN [address] [place] [address] PCP - General 01/19/25 Sary Brannon APRN 1210 [facility] [address] [place] [address] Referring Physician Gastroenterology 01/07/25 documented as of this encounter
--- OUTSIDE RECORDS SUMMARY | 2025-06-10 07:52 | XMS_ITS | Encounter Summary ---
Author Organization Healthcare Address [address] [place] [address] Care Team Providers Care Senior Program Analyst Name Role Phone Larry Bedolla MD Primary Care Provider + [phone] Sary Brannon APRN Unavailable [phone] Monika Hernandez APRN Primary Care Provider + [phone] Encounter Details Date Type Department Care Team (Late st Contact Info) Description 11/30/2024 Orders Only External Location [address] [place] [address] Provider, External Social History Tobacco Use Types [...] as of this encounter Care Teams Senior Program Analyst Relationship Specialty Start Date End Date Larry Bedolla MD [address] [place] [address] PCP - General 12/08/20 01/18/25 Monika Hernandez APRN [address] [place] [address] PCP - General 01/19/25 Sary Brannon APRN 1210 [facility] [address] [place] [address] Referring Physician Gastroenterology 01/07/25 documented as of this encounter
--- OUTSIDE RECORDS SUMMARY | 2025-06-10 07:52 | XMS_ITS | Encounter Summary ---
Author Organization Healthcare Address [address] [place] [address] Care Team Providers Care Sql Architect Name Role Phone Larry Bedolla MD Primary Care Provider + [phone] Sary Brannon APRN Unavailable [phone] Moniak Hernandez APRN Primary Care Provider + [phone] Encounter Details Date Type Department Care Team (Late st Contact Info) Description 11/30/2024 Orders Only External Location [address] [place] [address] Provider, External Social History Tobacco Use Types [...] documented as of this encounter Care Teams Sql Architect Relationship Specialty Start Date End Date Larry Bedolla MD [address] [place] [address] PCP - General 12/08/20 01/18/25 Monika Hernandez APRN [address] [place] [address] PCP - General 01/19/25 Sary Brannon APRN 1210 [facility] [address] [place] [address] Referring Physician Gastroenterology 01/07/25 documented as of this encounter
--- OUTSIDE RECORDS SUMMARY | 2025-06-10 07:52 | XMS_ITS | Encounter Summary ---
Author Organization Healthcare Address [address] [place] [address] Care Team Providers Care General Laborer Name Role Phone Larry Bedolla MD Primary Care Provider + [phone] Sary Brannon APRN Unavailable [phone] Monika Hernandez APRN Primary Care Provider + [phone] Encounter Details Date Type Department Care Team (Late st Contact Info) Description 11/30/2024 Orders Only External Location [address] [place] [address] Provider, External Social History Tobacco Use Types [...] as of this encounter Care Teams General Laborer Relationship Specialty Start Date End Date Larry Bedolla MD [address] [place] [address] PCP - General 12/08/20 01/18/25 Monika Hernandez APRN [address] [place] [address] PCP - General 01/19/25 aSry Brannon APRN [address] [place] [address] Referring Physician Gastroenterology 01/07/25 documented as of this encounter
--- OUTSIDE RECORDS SUMMARY | 2025-06-10 07:52 | XMS_ITS | Encounter Summary ---
Author Organization Healthcare Address [address] [place] [address] Care Team Providers Care Ship Captain Name Role Phone Larry Bedolla MD Primary Care Provider + [phone] Sary Brannon APRN Unavailable [phone] Monika Hernandez APRN Primary Care Provider + [phone] Encounter Details Date Type Department Care Team (Late st Contact Info) Description 10/26/2024 Orders Only External Location [address] [place] [address] Provider, External Social History Tobacco Use Types [...] documented as of this encounter Care Teams Ship Captain Relationship Specialty Start Date End Date Larry Bedolla MD [address] [place] [address] PCP - General 12/08/20 01/18/25 Monika Hernandez APRN [address] [place] [address] PCP - General 01/19/25 Sary Brannon APRN 1210 [facility] [address] [place] [address] Referring Physician Gastroenterology 01/07/25 documented as of this encounter
--- OUTSIDE RECORDS SUMMARY | 2025-06-10 07:52 | XMS_ITS ---
Author Organization Healthcare Address [address] [place] [address] Care Team Providers Care Camp Assistant Name Role Phone Sary Brannon APRN Unavailable [phone] Monika Hernandez APRN Primary Care Provider [phone] Transplant Episode Liver Candidate [facility] ([place], [place]) - JOSÉ LUIS Referred on 01/07/2025 Marked as Active on 01/07/2025 Liver CoordinatorMoraima Centeno RN Fax: N/A Email: N/A Scores Score Value Updated Expires Exceptions/Saloni sons CPRA Not available MELD (Calc) 22 02/22/2025 Care Team Name Role Phone Fax Email Moraima Centeno RN Liver Coordinator [phone] N/A N/A Sary Brannon APRN Referring Physician [phone] N/A Gem [employer] Machine Lode Miner [phone] N/A N/A Edil Kiran MD Surgeon [phone] N/A Events Pre-Transplant Referred: 01/07/2025 Committee: 02/28/2025
--- OUTSIDE RECORDS SUMMARY | 2025-06-10 07:52 | XMS_ITS | Encounter Summary ---
Author Organization Healthcare Address [address] [place] [address] Care Team Providers Care [employer] Developer Name Role Phone Larry Bedolla MD Primary Care Provider [phone] Sary Brannon APRN Unavailable [phone] Monika Hernandez APRN Primary Care Provider [phone] Encounter Details Date Type Department Care Team (Late st Contact Info) Description 11/29/2024 Orders Only External Location [address] [place] [address] Provider, External Social History Tobacco Use Types [...] documented as of this encounter Care Teams [employer] Developer Relationship Specialty Start Date End Date Larry Bedolla MD [address] [place] [address] PCP - General 12/08/20 01/18/25 Monika Hernandez APRN [address] [place] [address] PCP - General 01/19/25 Sary Brannon APRN [address] [place] [address] [address] [place] [address] Referring Physician Gastroenterology 01/07/25 documented as of this encounter
--- OUTSIDE RECORDS SUMMARY | 2025-06-10 07:52 | XMS_ITS | Data Portability ---
Author Organization formerly [facility] Address [address] [place] [address] Assessment No assessment recorded. Plan of Treatment Reminders Order Date Submit Date Provider Last Modified By Organization Details Last Modified Time Details Appointments None recorded. Lab microalbumi n/creatinin e, mass ratio, urine 2023 024 [facility] ([facility] [address] [facility] [address], [place], [address], 5 10:22:00 HbA1c (hemoglobin A1c), blood 2023 024 [facility] ([facility] [address] [facility] [address], [place], [address], 5 10:21:59 CMP, serum or plasma 2023 024 [facility] (Lab), [address] [facility] [address], [place], [address], 5 10:21:59 CBC w/ auto diff 2023 024 [facility] (Lab), [address] [facility] [address], [place], [address], 5 10:21:59 lipid panel, serum 2023 024 [facility] (Lab), [address], [place], [address], 5 10:22:00 CBC w/ auto diff 2022 023 [facility] Nguyenjillian, [address], [address], [place], [address], 3 13:06:54 HbA1c (hemoglobin A1c), blood 2022 023 [facility] Leroydanilo, [address], [place] [place], [place], [address], 3 13:06:57 C-peptide, serum 2022 023 [facility] Leroydanilo, [address], [place] [place], [place], [address], 3 13:06:56 CMP, serum or plasma 2022 023 [facility] Leroydanilo, [address], [address], [place], [address], 3 13:06:55 microalbumi n/creatinin e, mass ratio, urine 2022 023 [facility] Nguyenjillian, [address], [place] [place], [place], [address], 3 13:06:56 CMP, serum or plasma 2022 023 A[facility] Leroydanilo, [address], [place] [place], [place], [address], 3 11:08:27 lipid panel, serum 2022 023 [facility] Labdanilo, [address], [address], [place], [address], 3 11:08:28 HbA1c (hemoglobin A1c), blood 2022 023 [facility] Leroydanilo, [address], [place] [place], [place], [address], 3 11:08:29 CBC w/ auto diff 2022 023 [facility] Leroydanilo, [address], [place] [place], [place], [address], 3 11:08:27 HbA1c (hemoglobin A1c), blood 2021 022 [facility] Greg, [address], [place] [place], [place], [address], 2 11:07:51 CMP, serum or plasma 2021 022 [facility] Greg, [address], [place] [place], [place], [address], 2 11:07:49 CBC w/ auto diff 2021 022 [facility] Greg, [address], [address], [place], [address], 2 11:07:48 lipid panel, serum 2021 022 [facility] Greg, [address], [address], [place], [address], 2 11:07:50 albumin/cre atinine, mass ratio, urine 2021 022 ABESAM Garza, [address], [address] [place], [place], [address], 2 11:07:50 C-peptide, serum 2021 022 A[facility] Garza, [address], [address], [place], [address], 2 11:07:51 Referral None recorded. Procedures None recorded. Surgeries None recorded. Imaging None recorded. Medication Orders Mounjaro 2.5 mg/0.5 mL subcutaneou s pen injector 2023 024 [facility], [address] [address] [place], [id number], 4 16:05:05 Glucagon Emergency Kit 1 mg solution for injection 2022 023 [facility], [address] [place] [address] [place], [id number], 3 13:31:18 Fiasp U-100 Insulin 100 unit/mL subcutaneou s solution 2022 023 [facility], [facility] [address] [place], [id number], 3 13:35:16 Keflex 500 mg capsule [facility] [address] [place], [place] [address], [id number], 3 11:31:54 Patient TargetsNo targets recorded. Patient Instructions Encounter Date Encounter Id Patient Instructions Last Modified By Organization Details Last Modified Time 04/22/2023 [id number] learning about healthy weight efryman Not available 04/22/2023 10:44:48 body mass index: care instructions efryarthur Not available 04/22/2023 10:44:48 Reason for Referral None Reported. Results Created Date Observation Date Name Description Value Unit Range Abnormal Flag Note LastModifiedBy Organization Detail LastModifiedTime 05/29/20 22 05/29/2022 CBC WITH DIFFE RENTI AL/PL ATELE T WBC 3.3 x10e3 /uL 3.4-10 .8 below low normal Not Available [facility] ([facility]) [address] [facility], [place], [address], 05/29/2022 11:07:48 05/29/20 22 05/29/2022 CBC WITH DIFFE RENTI AL/PL ATELE T RBC 4.52 x10e6 /uL 3.77-5 .28 Not Available [facility] ([facility]) [address] [facility], [place], [address], 05/29/2022 11:07:48 05/29/20 22 05/29/2022 CBC WITH DIFFE RENTI AL/PL ATELE T hemoglobin 14.0 g/dL 11.1-1 5.9 Not Available [facility] ([facility]) [address] [facility], [place], [address], 05/29/2022 11:07:48 05/29/20 22 05/29/2022 CBC WITH DIFFE RENTI AL/PL ATELE T hematocrit 44.3 % 34.0-4 6.6 Not Available [facility] ([facility]) [address] [facility], [place], [address], 05/29/2022 11:07:48 05/29/20 22 05/29/2022 CBC WITH DIFFE RENTI AL/PL ATELE T MCV 98 fL 79-97 above high normal Not Available [facility] ([facility]) [address] [place], [address], 05/29/2022 11:07:48 05/29/20 22 05/29/2022 CBC WITH DIFFE RENTI AL/PL ATELE T MCH 31.0 pg 26.6-3 3.0 Not Available [facility] ([facility]) [address] [place], [address], 05/29/2022 11:07:48 05/29/20 22 05/29/2022 CBC WITH DIFFE RENTI AL/PL ATELE T MCHC 31.6 g/dL 31.5-3 5.7 Not Available [facility] ([facility]) [address] [place], [address], 05/29/2022 11:07:48 05/29/20 22 05/29/2022 CBC WITH DIFFE RENTI AL/PL ATELE T RDW 13.9 % 11.7-1 5.4 Not Available [facility] ([facility]) [address] [facility], [place], [address], 05/29/2022 11:07:48 05/29/20 22 05/29/2022 CBC WITH DIFFE RENTI AL/PL ATELE T platelets 88 x10e3 /uL 150-45 0 alert low Actua l plate let count may be somew hat highe r than repor sharla due to aggre gatio n of plate lets in this sampl e. Not Available [facility] ([facility]) [address] [facility], [place], [address], 05/29/2022 11:07:48 05/29/20 22 05/29/2022 CBC WITH DIFFE RENTI AL/PL ATELE T neutrophils 62 % not estab. Not Available [facility] ([facility]) [address] [facility], [place], [address], 05/29/2022 11:07:48 05/29/20 22 05/29/2022 CBC WITH DIFFE RENTI AL/PL ATELE T lymphs 28 % not estab. Not Available [facility] ([facility]) [address] [facility], [place], [address], 05/29/2022 11:07:48 05/29/20 22 05/29/2022 CBC WITH DIFFE RENTI AL/PL ATELE T monocytes 8 % not estab. Not Available [facility] ([facility]) [address] [facility], [place], [address], 05/29/2022 11:07:48 05/29/20 22 05/29/2022 CBC WITH DIFFE RENTI AL/PL ATELE T eos 2 % not estab. Not Available [facility] ([facility]) [address] [facility], [place], [address], 05/29/2022 11:07:48 05/29/20 22 05/29/2022 CBC WITH DIFFE RENTI AL/PL ATELE T basos 0 % not estab. Not Available [facility] ([facility]) [address] [facility], [place], [address], 05/29/2022 11:07:48 05/29/20 22 05/29/2022 CBC WITH DIFFE RENTI AL/PL ATELE T immature cells CLIENT TECHNICAL PROFESSIONAL Not Available [facility] ([facility]) [address] [facility], [place], [address], 05/29/2022 11:07:48 05/29/20 22 05/29/2022 CBC WITH DIFFE RENTI AL/PL ATELE T neutrophils (absolute) 2.1 x10e3 /uL 1.4-7. 0 Not Available [facility] ([facility]) [address] [facility], [place], [address], 05/29/2022 11:07:48 05/29/20 22 05/29/2022 CBC WITH DIFFE RENTI AL/PL ATELE T lymphs (absolute) 0.9 x10e3 /uL 0.7-3. 1 Not Available [facility] ([facility]) [address] [place], [address], 05/29/2022 11:07:48 05/29/20 22 05/29/2022 CBC WITH DIFFE RENTI AL/PL ATELE T monocytes(ab solute) 0.3 x10e3 /uL 0.1-0. 9 Not Available [facility] ([facility]) [address] [place], [address], 05/29/2022 11:07:48 05/29/20 22 05/29/2022 CBC WITH DIFFE RENTI AL/PL ATELE T eos (absolute) 0.1 x10e3 /uL 0.0-0. 4 Not Available [facility] ([facility]) [address] [place], [address], 05/29/2022 11:07:48 05/29/20 22 05/29/2022 CBC WITH DIFFE RENTI AL/PL ATELE T baso (absolute) 0.0 x10e3 /uL 0.0-0. 2 Not Available [facility] ([facility]) [address] [facility], [place], [address], 05/29/2022 11:07:48 05/29/20 22 05/29/2022 CBC WITH DIFFE RENTI AL/PL ATELE T immature granulocytes 0 % not estab. Not Available [facility] ([facility]) [address] [facility], [place], [address], 05/29/2022 11:07:48 05/29/20 22 05/29/2022 CBC WITH DIFFE RENTI AL/PL ATELE T immature grans (abs) 0.0 x10e3 /uL 0.0-0. 1 Not Available [facility] ([facility]) [address] [facility], [place], [address], 05/29/2022 11:07:48 05/29/20 22 05/29/2022 CBC WITH DIFFE RENTI AL/PL ATELE T NRBC CLIENT TECHNICAL PROFESSIONAL Not Available [facility] ([facility]) [address] [facility], [place], [address], 05/29/2022 11:07:48 05/29/20 22 05/29/2022 CBC WITH DIFFE RENTI AL/PL ATELE T hematology comments: Note: Verif ied by micro scopi c exami natsimeon n. Not Available [facility] ([facility]) [address] [facility], [place], [address], 05/29/2022 11:07:48 05/29/20 22 05/29/2022 COMP. METAB OLIC PANEL (14) glucose 111 mg/dL 70-99 above high normal Not Available [facility] ([facility]) [address] [facility], [place], [address], 05/29/2022 11:07:49 05/29/20 22 05/29/2022 COMP. METAB OLIC PANEL (14) BUN 13 mg/dL 8-27 Not Available [facility] ([facility]) [address] [facility] [place], [address], 05/29/2022 11:07:49 05/29/20 22 05/29/2022 COMP. METAB OLIC PANEL (14) creatinine 0.93 mg/dL 0.57-1 .00 Not Available [facility] ([facility]) [address] [facility] [place], [address], 05/29/2022 11:07:49 05/29/20 22 05/29/2022 COMP. METAB OLIC PANEL (14) eGFR 70 mL/mi n/1.7 3 >59 Not Available [facility] ([facility]) [address] [facility] [place], [address], 05/29/2022 11:07:49 05/29/20 22 05/29/2022 COMP. METAB OLIC PANEL (14) BUN/creatini ne ratio 14 12-28 Not Available [facility] ([facility]) [address] [facility] [place], [address], 05/29/2022 11:07:49 05/29/20 22 05/29/2022 COMP. METAB OLIC PANEL (14) sodium 145 mmol/ L 134-14 4 above high normal Not Available [facility] ([facility]) [address] [facility] [place], [address], 05/29/2022 11:07:49 05/29/20 22 05/29/2022 COMP. METAB OLIC PANEL (14) potassium 4.5 mmol/ L 3.5-5. 2 Not Available [facility] ([facility]) [address] [facility] [place], [address], 05/29/2022 11:07:49 05/29/20 22 05/29/2022 COMP. METAB OLIC PANEL (14) chloride 106 mmol/ L 96-106 Not Available [facility] ([facility]) [address] [facility] [place], [address], 05/29/2022 11:07:49 05/29/20 22 05/29/2022 COMP. METAB OLIC PANEL (14) carbon dioxide, total 28 mmol/ L 20-29 Not Available [facility] ([facility]) [address] [facility], [place], [address], 05/29/2022 11:07:49 05/29/20 22 05/29/2022 COMP. METAB OLIC PANEL (14) calcium 9.4 mg/dL 8.7-10 .3 Not Available [facility] ([facility]) [address] [facility] [place], [address], 05/29/2022 11:07:49 05/29/20 22 05/29/2022 COMP. METAB OLIC PANEL (14) protein, total 7.2 g/dL 6.0-8. 5 Not Available [facility] ([facility]) [address] [facility] [place], [address], 05/29/2022 11:07:49 05/29/20 22 05/29/2022 COMP. METAB OLIC PANEL (14) albumin 3.9 g/dL 3.8-4. 9 Not Available [facility] ([facility]) [address] [facility], [place], [address], 05/29/2022 11:07:49 05/29/20 22 05/29/2022 COMP. METAB OLIC PANEL (14) globulin, total 3.3 g/dL 1.5-4. 5 Not Available [facility] ([facility]) [address] [facility] [place], [address], 05/29/2022 11:07:49 05/29/20 22 05/29/2022 COMP. METAB OLIC PANEL (14) A/G ratio 1.2 1.2-2. 2 Not Available [facility] ([facility]) [address] [facility] [place], [address], 05/29/2022 11:07:49 05/29/20 22 05/29/2022 COMP. METAB OLIC PANEL (14) bilirubin, total 0.6 mg/dL 0.0-1. 2 Not Available [facility] ([facility]) [address] [place], [address], 05/29/2022 11:07:49 05/29/20 22 05/29/2022 COMP. METAB OLIC PANEL (14) alkaline phosphatase 164 IU/L 44-121 above high normal Not Available [facility] ([facility]) [address] [place], [address], 05/29/2022 11:07:49 05/29/20 22 05/29/2022 COMP. METAB OLIC PANEL (14) AST (SGOT) 50 IU/L 0-40 above high normal Not Available [facility] ([facility]) [address] [place], [address], 05/29/2022 11:07:49 05/29/20 22 05/29/2022 COMP. METAB OLIC PANEL (14) ALT (SGPT) 41 IU/L 0-32 above high normal Not Available [facility] ([facility]) [address] [place], [address], 05/29/2022 11:07:49 05/29/20 22 05/29/2022 LIPID PANEL cholesterol, total 170 mg/dL 100-19 9 Not Available [facility] ([facility]) [address] [place], [address], 05/29/2022 11:07:50 05/29/20 22 05/29/2022 LIPID PANEL triglyceride s 88 mg/dL 0-149 Not Available [facility] ([facility]) [address] [place], [address], 05/29/2022 11:07:50 05/29/20 22 05/29/2022 LIPID PANEL HDL cholesterol 53 mg/dL >39 Not Available [facility]) [address] [facility], [place], [address], 05/29/2022 11:07:50 05/29/20 22 05/29/2022 LIPID PANEL VLDL cholesterol jenniffer 16 mg/dL 5-40 Not Available [facility] ([facility]) [address] [place], [address], 05/29/2022 11:07:50 05/29/20 22 05/29/2022 LIPID PANEL LDL chol calc ([facility]) 101 mg/dL 0-99 above high normal Not Available [facility] ([facility]) [address] [place], [address], 05/29/2022 11:07:50 05/29/20 22 05/29/2022 LIPID PANEL comment: CLIENT TECHNICAL PROFESSIONAL Not Available [facility] ([facility]) [address] [place], [address], 05/29/2022 11:07:50 05/29/20 22 05/29/2022 ALBUM IN/CR EATIN INE RATIO ,URIN E creatinine, urine 147.7 mg/dL not estab. Not Available [facility] ([facility]) [address] [place], [address], 05/29/2022 11:07:50 05/29/20 22 05/29/2022 ALBUM IN/CR EATIN INE RATIO ,URIN E albumin, urine 80.0 ug/mL not estab. Not Available [facility] ([facility]) [address] [place], [address], 05/29/2022 11:07:50 05/29/20 22 05/29/2022 ALBUM IN/CR EATIN INE RATIO ,URIN E alb/creat ratio 54 mg/g_ creat 0-29 above high normal Blanka l: 0 - 29 Moder ately incre ased: 30 - 300 Sever lemuel incre ased: >300 Not Available [facility] ([facility]) [address] [facility] [place], [address], 05/29/2022 11:07:50 05/29/20 22 05/29/2022 HEMOG LOBIN A1C hemoglobin A1C 10.7 % 4.8-5. 6 above high normal Predi abete s: 5.7 - 6.4 Diabe reynold: >6.4 Glyce eve contr ol for adult s with diabe reynold: <7.0 Not Available [facility] ([facility]) [address] [facility], [place], [address], 05/29/2022 11:07:51 05/29/20 22 05/29/2022 C-PEP TIDE, SERUM C-peptide, serum 3.2 NG/mL 1.1-4. 4 C-Pep tide refer ence inter rimma is for fasti ng patie nts. Not Available [facility] ([facility]) [address] [facility], [place], [address], 05/29/2022 11:07:51 05/29/20 22 05/29/2022 PLESRUTHI E NOTE please note Commen t The date and/o r time of colle ction was not indic ated on the requi sitio n as requi red by state and [place] law. The date of recei pt of the speci men was used as the colle ction date if not suppl ied. Not Available [facility] ([facility]) [address] [facility], [place], [address], 05/29/2022 11:07:52 09/03/19 23 09/04/2022 CBC WITH DIFFE RENTI AL/PL ATELE T WBC 3.4 x10e3 /uL 3.4-10 .8 Not Available [facility] ([facility]) [address] [facility], [place], [address], 09/04/2022 11:08:26 09/03/19 23 09/04/2022 CBC WITH DIFFE RENTI AL/PL ATELE T RBC 4.18 x10e6 /uL 3.77-5 .28 Not Available [facility] ([facility]) [address] [facility], [place], [address], 09/04/2022 11:08:26 09/03/19 23 09/04/2022 CBC WITH DIFFE RENTI AL/PL ATELE T hemoglobin 13.2 g/dL 11.1-1 5.9 Not Available [facility] ([facility]) [address] [facility], [place], [address], 09/04/2022 11:08:26 09/03/19 23 09/04/2022 CBC WITH DIFFE RENTI AL/PL ATELE T hematocrit 39.4 % 34.0-4 6.6 Not Available [facility] ([facility]) [address] [facility], [place], [address], 09/04/2022 11:08:26 09/03/19 23 09/04/2022 CBC WITH DIFFE RENTI AL/PL ATELE T MCV 94 fL 79-97 Not Available [facility] ([facility]) [address] [place], [address], 09/04/2022 11:08:26 09/03/19 23 09/04/2022 CBC WITH DIFFE RENTI AL/PL ATELE T MCH 31.6 pg 26.6-3 3.0 Not Available [facility] ([facility]) [address] [place], [address], 09/04/2022 11:08:26 09/03/19 23 09/04/2022 CBC WITH DIFFE RENTI AL/PL ATELE T MCHC 33.5 g/dL 31.5-3 5.7 Not Available [facility] ([facility]) [address] [place], [address], 09/04/2022 11:08:26 09/03/19 23 09/04/2022 CBC WITH DIFFE RENTI AL/PL ATELE T RDW 13.9 % 11.7-1 5.4 Not Available [facility] ([facility]) [address] [facility], [place], [address], 09/04/2022 11:08:26 09/03/19 23 09/04/2022 CBC WITH DIFFE RENTI AL/PL ATELE T platelets 89 x10e3 /uL 150-45 0 alert low Plate let count verif ied by exami natsimeon n of perip heral blood smear . Not Available [facility] ([facility]) [address] [facility], [place], [address], 09/04/2022 11:08:26 09/03/19 23 09/04/2022 CBC WITH DIFFE RENTI AL/PL ATELE T neutrophils 58 % not estab. Not Available [facility] ([facility]) [address] [facility], [place], [address], 09/04/2022 11:08:26 09/03/19 23 09/04/2022 CBC WITH DIFFE RENTI AL/PL ATELE T lymphs 32 % not estab. Not Available [facility] ([facility]) [address] [facility], [place], [address], 09/04/2022 11:08:26 09/03/19 23 09/04/2022 CBC WITH DIFFE RENTI AL/PL ATELE T monocytes 9 % not estab. Not Available [facility] ([facility]) [address] [facility], [place], [address], 09/04/2022 11:08:26 09/03/19 23 09/04/2022 CBC WITH DIFFE RENTI AL/PL ATELE T eos 1 % not estab. Not Available [facility] ([facility]) [address] [facility], [place], [address], 09/04/2022 11:08:26 09/03/19 23 09/04/2022 CBC WITH DIFFE RENTI AL/PL ATELE T basos 0 % not estab. Not Available [facility] ([facility]) [address] [facility], [place], [address], 09/04/2022 11:08:26 09/03/19 23 09/04/2022 CBC WITH DIFFE RENTI AL/PL ATELE T immature cells CLIENT TECHNICAL PROFESSIONAL Not Available [facility] ([facility]) [address] [facility], [place], [address], 09/04/2022 11:08:26 09/03/19 23 09/04/2022 CBC WITH DIFFE RENTI AL/PL ATELE T neutrophils (absolute) 1.9 x10e3 /uL 1.4-7. 0 Not Available [facility] ([facility]) [address] [facility], [place], [address], 09/04/2022 11:08:26 09/03/19 23 09/04/2022 CBC WITH DIFFE RENTI AL/PL ATELE T lymphs (absolute) 1.1 x10e3 /uL 0.7-3. 1 Not Available [facility] ([facility]) [address] [place], [address], 09/04/2022 11:08:26 09/03/19 23 09/04/2022 CBC WITH DIFFE RENTI AL/PL ATELE T monocytes(ab solute) 0.3 x10e3 /uL 0.1-0. 9 Not Available [facility] ([facility]) [address] [place], [address], 09/04/2022 11:08:26 09/03/19 23 09/04/2022 CBC WITH DIFFE RENTI AL/PL ATELE T eos (absolute) 0.0 x10e3 /uL 0.0-0. 4 Not Available [facility] ([facility]) [address] [place], [address], 09/04/2022 11:08:26 09/03/19 23 09/04/2022 CBC WITH DIFFE RENTI AL/PL ATELE T baso (absolute) 0.0 x10e3 /uL 0.0-0. 2 Not Available [facility] ([facility]) [address] [facility], [place], [address], 09/04/2022 11:08:26 09/03/19 23 09/04/2022 CBC WITH DIFFE RENTI AL/PL ATELE T immature granulocytes 0 % not estab. Not Available [facility] ([facility]) [address] [facility], [place], [address], 09/04/2022 11:08:26 09/03/19 23 09/04/2022 CBC WITH DIFFE RENTI AL/PL ATELE T immature grans (abs) 0.0 x10e3 /uL 0.0-0. 1 Not Available [facility] ([facility]) [address] [facility], [place], [address], 09/04/2022 11:08:26 09/03/19 23 09/04/2022 CBC WITH DIFFE RENTI AL/PL ATELE T NRBC CLIENT TECHNICAL PROFESSIONAL Not Available [facility] ([facility]) [address] [facility], [place], [address], 09/04/2022 11:08:26 09/03/19 23 09/04/2022 CBC WITH DIFFE RENTI AL/PL ATELE T hematology comments: Note: Verif ied by micro bossamn laceyi natsimeon n. Not Available [facility] ([facility]) [address] [facility], [place], [address], 09/04/2022 11:08:26 09/03/19 23 09/04/2022 COMP. METAB OLIC PANEL (14) glucose 87 mg/dL 70-99 Not Available [facility] ([facility]) [address] [facility], [place], [address], 09/04/2022 11:08:27 09/03/19 23 09/04/2022 COMP. METAB OLIC PANEL (14) BUN 16 mg/dL 8-27 Not Available [facility] ([facility]) [address] [facility] [place], [address], 09/04/2022 11:08:27 09/03/19 23 09/04/2022 COMP. METAB OLIC PANEL (14) creatinine 1.02 mg/dL 0.57-1 .00 above high normal Not Available [facility] ([facility]) [address] [facility] [place], [address], 09/04/2022 11:08:27 09/03/19 23 09/04/2022 COMP. METAB OLIC PANEL (14) eGFR 63 mL/mi n/1.7 3 >59 Not Available [facility] ([facility]) [address] [facility] [place], [address], 09/04/2022 11:08:27 09/03/19 23 09/04/2022 COMP. METAB OLIC PANEL (14) BUN/creatini ne ratio 16 12-28 Not Available [facility]) [address] [facility] [place], [address], 09/04/2022 11:08:27 09/03/19 23 09/04/2022 COMP. METAB OLIC PANEL (14) sodium 145 mmol/ L 134-14 4 above high normal Not Available [facility] ([facility]) [address] [facility] [place], [address], 09/04/2022 11:08:27 09/03/19 23 09/04/2022 COMP. METAB OLIC PANEL (14) potassium 4.3 mmol/ L 3.5-5. 2 Not Available [facility] ([facility]) [address] [facility] [place], [address], 09/04/2022 11:08:27 09/03/19 23 09/04/2022 COMP. METAB OLIC PANEL (14) chloride 108 mmol/ L 96-106 above high normal Not Available [facility] ([facility]) [address] [facility] [place], [address], 09/04/2022 11:08:27 09/03/19 23 09/04/2022 COMP. METAB OLIC PANEL (14) carbon dioxide, total 26 mmol/ L 20-29 Not Available [facility] ([facility]) [address], [place], [address], 09/04/2022 11:08:27 09/03/19 23 09/04/2022 COMP. METAB OLIC PANEL (14) calcium 9.2 mg/dL 8.7-10 .3 Not Available [facility] ([facility]) [address] [place], [place], [address], 09/04/2022 11:08:27 09/03/19 23 09/04/2022 COMP. METAB OLIC PANEL (14) protein, total 7.0 g/dL 6.0-8. 5 Not Available [facility] ([facility]) [address] [facility], [place], [address], 09/04/2022 11:08:27 09/03/19 23 09/04/2022 COMP. METAB OLIC PANEL (14) albumin 3.8 g/dL 3.8-4. 9 Not Available [facility] ([facility]) [address] [facility], [place], [address], 09/04/2022 11:08:27 09/03/19 23 09/04/2022 COMP. METAB OLIC PANEL (14) globulin, total 3.2 g/dL 1.5-4. 5 Not Available [facility] ([facility]) [address] [facility] [place], [address], 09/04/2022 11:08:27 09/03/19 23 09/04/2022 COMP. METAB OLIC PANEL (14) A/G ratio 1.2 1.2-2. 2 Not Available [facility] ([facility]) [address] [facility], [place], [address], 09/04/2022 11:08:27 09/03/19 23 09/04/2022 COMP. METAB OLIC PANEL (14) bilirubin, total 0.6 mg/dL 0.0-1. 2 Not Available [facility] ([facility]) [address] [place], [address], 09/04/2022 11:08:27 09/03/19 23 09/04/2022 COMP. METAB OLIC PANEL (14) alkaline phosphatase 153 IU/L 44-121 above high normal Not Available [facility] ([facility]) [address] [place], [address], 09/04/2022 11:08:27 09/03/19 23 09/04/2022 COMP. METAB OLIC PANEL (14) AST (SGOT) 55 IU/L 0-40 above high normal Not Available [facility] ([facility]) [address] [place], [address], 09/04/2022 11:08:27 09/03/19 23 09/04/2022 COMP. METAB OLIC PANEL (14) ALT (SGPT) 41 IU/L 0-32 above high normal Not Available [facility] ([facility]) [address] [place], [address], 09/04/2022 11:08:27 09/03/19 23 09/04/2022 LIPID PANEL cholesterol, total 150 mg/dL 100-19 9 Not Available [facility] ([facility]) [address] [place], [address], 09/04/2022 11:08:28 09/03/19 23 09/04/2022 LIPID PANEL triglyceride s 125 mg/dL 0-149 Not Available [facility] ([facility]) [address] [place], [address], 09/04/2022 11:08:28 09/03/19 23 09/04/2022 LIPID PANEL HDL cholesterol 37 mg/dL >39 below low normal Not Available [facility] ([facility]) [address] [facility], [place], [address], 09/04/2022 11:08:28 09/03/19 23 09/04/2022 LIPID PANEL VLDL cholesterol jenniffer 23 mg/dL 5-40 Not Available [facility] ([facility]) [address] [facility] [place], [address], 09/04/2022 11:08:28 09/03/19 23 09/04/2022 LIPID PANEL LDL chol calc ([facility]) 90 mg/dL 0-99 Not Available [facility] ([facility]) [address] [facility] [place], [address], 09/04/2022 11:08:28 09/03/19 23 09/04/2022 LIPID PANEL comment: CLIENT TECHNICAL PROFESSIONAL Not Available [facility] ([facility]) [address] [facility], [place], [address], 09/04/2022 11:08:28 09/03/19 23 09/04/2022 HEMOG LOBIN A1C hemoglobin A1C 7.5 % 4.8-5. 6 above high normal Predi abete s: 5.7 - 6.4 Diabe reynold: >6.4 Glyce eve contr ol for adult s with diabe reynold: <7.0 Not Available [facility] ([facility]) [address] [facility], [place], [address], 09/04/2022 11:08:29 04/22/20 23 04/23/2023 CBC WITH DIFFE RENTI AL/PL ATELE T WBC 2.4 x10e3 /uL 3.4-10 .8 alert low Not Available [facility] ([facility]) [address] [place], [address], 04/23/2023 13:06:54 04/22/20 23 04/23/2023 CBC WITH DIFFE RENTI AL/PL ATELE T RBC 4.19 x10e6 /uL 3.77-5 .28 Not Available [facility] ([facility]) [address] [facility], [place], [address], 04/23/2023 13:06:54 04/22/20 23 04/23/2023 CBC WITH DIFFE RENTI AL/PL ATELE T hemoglobin 13.7 g/dL 11.1-1 5.9 Not Available [facility] ([facility]) [address] [facility], [place], [address], 04/23/2023 13:06:54 04/22/20 23 04/23/2023 CBC WITH DIFFE RENTI AL/PL ATELE T hematocrit 41.2 % 34.0-4 6.6 Not Available [facility] ([facility]) [address] [facility], [place], [address], 04/23/2023 13:06:54 04/22/20 23 04/23/2023 CBC WITH DIFFE RENTI AL/PL ATELE T MCV 98 fL 79-97 above high normal Not Available [facility] ([facility]) [address] [facility], [place], [address], 04/23/2023 13:06:54 04/22/20 23 04/23/2023 CBC WITH DIFFE RENTI AL/PL ATELE T MCH 32.7 pg 26.6-3 3.0 Not Available [facility] ([facility]) [address] [place], [address], 04/23/2023 13:06:54 04/22/20 23 04/23/2023 CBC WITH DIFFE RENTI AL/PL ATELE T MCHC 33.3 g/dL 31.5-3 5.7 Not Available [facility] ([facility]) [address] [place], [address], 04/23/2023 13:06:54 04/22/20 23 04/23/2023 CBC WITH DIFFE RENTI AL/PL ATELE T RDW 13.9 % 11.7-1 5.4 Not Available [facility] ([facility]) [address] [facility], [place], [address], 04/23/2023 13:06:54 04/22/20 23 04/23/2023 CBC WITH DIFFE RENTI AL/PL ATELE T platelets 71 x10e3 /uL 150-45 0 alert low Plate let count verif ied by exami christiano n of perip heral blood smear . Not Available [facility] ([facility]) [address] [facility], [place], [address], 04/23/2023 13:06:54 04/22/20 23 04/23/2023 CBC WITH DIFFE RENTI AL/PL ATELE T neutrophils 62 % not estab. Not Available [facility] ([facility]) [address] [facility], [place], [address], 04/23/2023 13:06:54 04/22/20 23 04/23/2023 CBC WITH DIFFE RENTI AL/PL ATELE T lymphs 29 % not estab. Not Available [facility] ([facility]) [address] [facility], [place], [address], 04/23/2023 13:06:54 04/22/20 23 04/23/2023 CBC WITH DIFFE RENTI AL/PL ATELE T monocytes 9 % not estab. Not Available [facility] ([facility]) [address] [facility], [place], [address], 04/23/2023 13:06:54 04/22/20 23 04/23/2023 CBC WITH DIFFE RENTI AL/PL ATELE T eos 0 % not estab. Not Available [facility] ([facility]) [address] [place], [address], 04/23/2023 13:06:54 04/22/20 23 04/23/2023 CBC WITH DIFFE RENTI AL/PL ATELE T basos 0 % not estab. Not Available [facility] ([facility]) [address] [facility], [place], [address], 04/23/2023 13:06:54 04/22/20 23 04/23/2023 CBC WITH DIFFE RENTI AL/PL ATELE T immature cells CLIENT TECHNICAL PROFESSIONAL Not Available [facility] ([facility]) [address] [facility], [place], [address], 04/23/2023 13:06:54 04/22/20 23 04/23/2023 CBC WITH DIFFE RENTI AL/PL ATELE T neutrophils (absolute) 1.5 x10e3 /uL 1.4-7. 0 Not Available [facility] ([facility]) [address] [facility], [place], [address], 04/23/2023 13:06:54 04/22/20 23 04/23/2023 CBC WITH DIFFE RENTI AL/PL ATELE T lymphs (absolute) 0.7 x10e3 /uL 0.7-3. 1 Not Available [facility] ([facility]) [address] [facility], [place], [address], 04/23/2023 13:06:54 04/22/20 23 04/23/2023 CBC WITH DIFFE RENTI AL/PL ATELE T monocytes(ab solute) 0.2 x10e3 /uL 0.1-0. 9 Not Available [facility] ([facility]) [address] [facility], [place], [address], 04/23/2023 13:06:54 04/22/20 23 04/23/2023 CBC WITH DIFFE RENTI AL/PL ATELE T eos (absolute) 0.0 x10e3 /uL 0.0-0. 4 Not Available [facility] ([facility]) [address] [place], [address], 04/23/2023 13:06:54 04/22/20 23 04/23/2023 CBC WITH DIFFE RENTI AL/PL ATELE T baso (absolute) 0.0 x10e3 /uL 0.0-0. 2 Not Available [facility] ([facility]) [address] [facility], [place], [address], 04/23/2023 13:06:54 04/22/20 23 04/23/2023 CBC WITH DIFFE RENTI AL/PL ATELE T immature granulocytes 0 % not estab. Not Available [facility] ([facility]) [address] [facility], [place], [address], 04/23/2023 13:06:54 04/22/20 23 04/23/2023 CBC WITH DIFFE RENTI AL/PL ATELE T immature grans (abs) 0.0 x10e3 /uL 0.0-0. 1 Not Available [facility] ([facility]) [address] [facility], [place], [address], 04/23/2023 13:06:54 04/22/20 23 04/23/2023 CBC WITH DIFFE RENTI AL/PL ATELE T NRBC CLIENT TECHNICAL PROFESSIONAL Not Available [facility] ([facility]) [address] [facility], [place], [address], 04/23/2023 13:06:54 04/22/20 23 04/23/2023 CBC WITH DIFFE RENTI AL/PL ATELE T hematology comments: Note: Verif ied by tristen alvarado nAkhil Not Available [facility] ([facility]) [address] [place], [address], 04/23/2023 13:06:54 04/22/20 23 04/23/2023 COMP. METAB OLIC PANEL (14) glucose 322 mg/dL 70-99 above high normal Not Available [facility] ([facility]) [address] [place], [address], 04/23/2023 13:06:55 04/22/20 23 04/23/2023 COMP. METAB OLIC PANEL (14) BUN 26 mg/dL 8-27 Not Available [facility] ([facility]) [address] [facility], [address], 04/23/2023 13:06:55 04/22/20 23 04/23/2023 COMP. METAB OLIC PANEL (14) creatinine 1.39 mg/dL 0.57-1 .00 above high normal Not Available [facility] ([facility]) [address] [facility] [place], [address], 04/23/2023 13:06:55 04/22/20 23 04/23/2023 COMP. METAB OLIC PANEL (14) eGFR 43 mL/mi n/1.7 3 >59 below low normal Not Available [facility] ([facility]) [address] [facility] [place], [address], 04/23/2023 13:06:55 04/22/20 23 04/23/2023 COMP. METAB OLIC PANEL (14) BUN/creatini ne ratio 19 12-28 Not Available [facility] ([facility]) [address] [facility], [place], [address], 04/23/2023 13:06:55 04/22/20 23 04/23/2023 COMP. METAB OLIC PANEL (14) sodium 143 mmol/ L 134-14 4 Not Available [facility] ([facility]) [address] [facility] [place], [address], 04/23/2023 13:06:55 04/22/20 23 04/23/2023 COMP. METAB OLIC PANEL (14) potassium 5.1 mmol/ L 3.5-5. 2 Not Available [facility] ([facility]) [address] [facility] [place], [address], 04/23/2023 13:06:55 04/22/20 23 04/23/2023 COMP. METAB OLIC PANEL (14) chloride 103 mmol/ L 96-106 Not Available [facility] ([facility]) [address] [facility] [place], [address], 04/23/2023 13:06:55 04/22/20 23 04/23/2023 COMP. METAB OLIC PANEL (14) carbon dioxide, total 28 mmol/ L 20- Not Available [facility] ([facility]) [address] [place], [address], 04/23/2023 13:06:55 04/22/20 23 04/23/2023 COMP. METAB OLIC PANEL (14) calcium 9.4 mg/dL 8.7-10 .3 Not Available [facility] ([facility]) [address] [place], [address], 04/23/2023 13:06:55 04/22/20 23 04/23/2023 COMP. METAB OLIC PANEL (14) protein, total 7.4 g/dL 6.0-8. 5 Not Available [facility] ([facility]) [address] [place], [address], 04/23/2023 13:06:55 04/22/20 23 04/23/2023 COMP. METAB OLIC PANEL (14) albumin 3.9 g/dL 3.9-4. 9 Not Available [facility] ([facility]) [address] [place], [address], 04/23/2023 13:06:55 04/22/20 23 04/23/2023 COMP. METAB OLIC PANEL (14) globulin, total 3.5 g/dL 1.5-4. 5 Not Available [facility] ([facility]) [address] [place], [address], 04/23/2023 13:06:55 04/22/20 23 04/23/2023 COMP. METAB OLIC PANEL (14) A/G ratio 1.1 1.2-2. 2 below low normal Not Available [facility] ([facility]) [address] [place], [address], 04/23/2023 13:06:55 04/22/20 23 04/23/2023 COMP. METAB OLIC PANEL (14) bilirubin, total 0.6 mg/dL 0.0-1. 2 Not Available [facility] ([facility]) [address] [facility] [place], [address], 04/23/2023 13:06:55 04/22/20 23 04/23/2023 COMP. METAB OLIC PANEL (14) alkaline phosphatase 145 IU/L 44-121 above high normal Not Available [facility] ([facility]) [address] [facility] [place], [address], 04/23/2023 13:06:55 04/22/20 23 04/23/2023 COMP. METAB OLIC PANEL (14) AST (SGOT) 45 IU/L 0-40 above high normal Not Available [facility] ([facility]) [address] [facility], [place], [address], 04/23/2023 13:06:55 04/22/20 23 04/23/2023 COMP. METAB OLIC PANEL (14) ALT (SGPT) 33 IU/L 0-32 above high normal Not Available [facility] ([facility]) [address] [place], [address], 04/23/2023 13:06:55 04/22/20 23 04/23/2023 ALBUM IN/CR EAT RATIO , RANDO M UR creatinine, urine 75.9 mg/dL not estab. Not Available [facility] ([facility]) [address] [place], [address], 04/23/2023 13:06:56 04/22/20 23 04/23/2023 ALBUM IN/CR EAT RATIO , RANDO M UR albumin, urine 4.9 ug/mL not estab. Not Available [facility] ([facility]) [address] [place], [address], 04/23/2023 13:06:56 04/22/20 23 04/23/2023 ALBUM IN/CR EAT RATIO , WESTON Hernández UR alb/creat ratio 6 mg/g_ creat 0-29 Blanka l: 0 - 29 Moder ately incre ased: 30 - 300 Sever lemuel incre ased: >300 Not Available [facility] ([facility]) [address] [facility], [place], [address], 04/23/2023 13:06:56 04/22/20 23 04/23/2023 INSUL IN AND C-PEP TIDE, SERUM insulin 92.0 uIU/m L 2.6-24 .9 above high normal Not Available [facility] ([facility]) [address] [facility], [place], [address], 04/23/2023 13:06:56 04/22/20 23 04/23/2023 INSUL IN AND C-PEP TIDE, SERUM C-peptide, serum 11.8 NG/mL 1.1-4. 4 above high normal C-Pep tide refer ence inter rimma is for fasti ng patie nts. Not Available [facility] ([facility]) [address] [facility], [place], [address], 04/23/2023 13:06:56 04/22/2004/23/2023 HEMOG LOBIN A1C hemoglobin A1C 7.4 % 4.8-5. 6 above high normal Predi abete s: 5.7 - 6.4 Diabe reynold: >6.4 Glyce eve contr ol for adult s with diabe reynold: <7.0 Not Available [facility] ([facility]) [address] [facility], [place], [address], 04/23/2023 13:06:57 05/31/20 22 05/31/2022 XR, chest , 2 view No observ ation record ed[facility] [address], [place], [address], 06/04/2022 17:15:22 04/22/20 23 12/26/2021 MAMMO , diagn ostic , digit al, unila teral No observ ation record ed. [facility] (Med Record) [address], [place], [address], 04/22/2023 14:40:09 Result Notes None recorded. Problems Name Problem SNOMED Code Status Onset Date Resolution Date Notes Provider Name and Address Organization Details Recorded Time Type 2 diabetes mellitus 19009021 Active 2021 Ramónanali kristen, MARKETING PROGRAM COORDINATOR [address], [place], [address], [place] - [facility] 2 10:51:37 Hypertensive disorder 44161511 Active 2021 Ramónanali kristen, MARKETING PROGRAM COORDINATOR [address], [place], [address], [place] - [facility] 2 10:51:29 Chronic kidney disease stage 3 853962344 Active 2021 Ramónanali kristen, MARKETING PROGRAM COORDINATOR [address], [place], [address], [place] - [facility] 2 10:51:25 Chronic back pain 504150458 Active 2021 Ramónanali kristen, MARKETING PROGRAM COORDINATOR [address], [place], [address], [place] [facility] 2 10:51:22 Heart disease 29671164 Active 2021 Ramóntiffanisavanah Rodriguezkristen, MARKETING PROGRAM COORDINATOR [address], [place], [address], [place] - [facility] 2 10:51:27 [...] Updated DateTime 3 170.18 cm 32.3 kg/m2 39202.0 3 g 97.6 [degF] 90 /min 95 [...] Updated DateTime 4 170.18 cm 31.5 kg/m2 77742.7 7 g 98 % 98 % 18 [...] Updated DateTime 3 170.18 cm 32.4 kg/m2 73132.6 2 g 97.5 [degF] 18 /min 91 % 91 % 84 /min 136/78 mm[Hg] Vero Delgado [place] - [facility] 3 09:56:51 Date Recorded Body weight Body mass index (BMI) Body height Respiratory rate Oxygen saturation Oxygen saturation in Arterial blood by Pulse oximetry Heart rate Body temperature Systolic And Diastolic Provider Name and Address Organization Details Last Updated DateTime 2 40738.9 2 g 30.4 kg/m2 170.18 cm 18 /min 95 % 95 % 96 /min 97.5 [degF] 148/78 mm[Hg] Vero Delgado [place] - [facility] 2 10:14:48 Social History Question Answer Notes LastModified by Organizat ion Details LastModified Time Tobacco Smoking Status Never Smoker [facility], [facility] 05/28/2022 10:27:58 Do You Have An Advance Directive? No Information not available 05/28/2022 Are You Blind Or Do You Have Difficulty Seeing? Yes Blurry, Hard To See Far Away, Has Eye Dr. Hidalgo 05-29-[address] [facility] Information not available 05/28/2022 What Is Your [...] Or The Highest Degree You Have Received? [id number] Information not available 05/28/2022 Have There Been Any Changes To Your Family Or Social Situation? No Information not available 05/28/2022 What Is The Fluoride Status Of Your Home? Unknown Information not available 05/28/2022 Do You Have A Medical Power Of Construction Lineman? No Information not available 05/28/2022 What Was [...] anxious, or unable to sleep at night)? [id number] Information not available 05/28/2022 Do you have [...] quadrivalent, preservative 8 completed Vero Stears null, [place] - [facility] 09/03/2022 11:27:52 zoster recombinant 1 completed Vero Ste[place] [facility] 09/03/2022 11:27:52 zoster recombinant 0 completed Vero Ste[place] [facility] 09/03/2022 11:27:52 zoster recombinant 1 completed Vero Stears [place] [facility] 09/03/2022 11:27:52 MMR 7 completed [facility] Stears [place] [facility] 09/03/2022 11:27:52 COVID-19, mRNA, LNP-S, PF, 100 mcg/0.5mL dose or 50 mcg/0.25mL dose 1 completed Vero Stears [place] [facility] 09/03/2022 11:27:52 COVID-19, mRNA, LNP-S, PF, 100 mcg/0.5mL dose or 50 mcg/0.25mL dose 1 completed Vero Stears [place] [facility] 09/03/2022 11:27:52 COVID-19, mRNA, LNP-S, PF, 100 mcg/0.5mL dose or 50 mcg/0.25mL dose 1 completed Vero Stears [place] [facility] 09/03/2022 11:27:52 pneumococcal polysaccharide PPV23 0 completed Vero Ste[place] [facility] 09/03/2022 11:27:52 Tdap 1 completed Vero Ste[place] [facility] 09/03/2022 11:27:52 Pneumococcal conjugate PCV 13 6 completed Vero Stears [place] [facility] 09/03/2022 11:27:52 Influenza, split virus, trivalent, preservative 8 completed Vero Stears [place] [facility] 09/03/2022 11:27:52 Influenza, split virus, trivalent, preservative 7 completed Vero Stears null, [facility] 09/03/2022 11:27:52 Influenza, split virus, trivalent, preservative 6 completed Vero Stears null, [facility] 09/03/2022 11:27:52 Influenza, split virus, trivalent, PF 2 completed Vero Stears null, [facility] 09/03/2022 11:27:52 Influenza, split virus, trivalent, PF 1 completed Vero Stears null, [facility] 09/03/2022 11:27:52 Influenza, split virus, trivalent, PF 4 completed Vero Stears null, [facility] 09/03/2022 11:27:52 Influenza, split virus, trivalent, PF 3 completed Vero Stears null, [facility] 09/03/2022 11:27:52 Hep B, adult 2 completed Vero Stears null, [facility] 09/03/2022 11:27:52 Hep A, adult 2 completed Vero Stears null, [facility] 09/03/2022 11:27:52 Influenza, split virus, quadrivalent, PF 6 completed Vero Stears null, [facility] 09/03/2022 11:27:52 Influenza, split virus, quadrivalent, PF 9 completed Vero Stears null, [facility] 09/03/2022 11:27:52 Influenza, split virus, quadrivalent, PF 5 completed Vero Stears null, [facility] 09/03/2022 11:27:52 Influenza, split virus, quadrivalent, PF 0 completed Vero Stears null, [facility] 09/03/2022 11:27:52 Hep A-Hep B 2 completed Vero Delgado [place] - [facility] 09/03/2022 11:27:52 Past Encounters Encounter ID Performer Location Encounter Start Date Encounter Closed Date Diagnosis/Indication Diagnosis SNOMED-CT Code Diagnosis ICD10 Code Diagnosis IMO Codes Diagnosis Note [id number] Mary Henry [address] [address] 05/28/2022 09:58:35 05/28/2022 11:06:38 Chronic back pain 953245023 G89.29 Type 2 jose betes mellitus 96408410 Z79.4 omnipod ordereddm packet given to pt Hypertensive disorder 38 129582 I10 Heart disease 64984307 I 51.9 Chronic ki dney disease stage 3 955201091 N18.30 Diabetic foot ulcer 3710 [address]143 E13.224 [id number] Mary Henry [address] [address] 09/03/2022 10:47:25 09/03/2022 12:32:31 Chronic kidney disease stage 3 495868259 N18.30 Hypertensive disorder 38 550730 I10 Type 2 jose betes mellitus 93721713 Z79.4 continue with omnipod training, labs to obtain baseline Chronic back pain 083242 002 G89.29 Heart disease 33496932 I 51.9 [id number] Mary Henry [address] [address] 04/22/2023 09:29:27 04/22/2023 11:55:30 Type 2 diabetes mellitus 67840223 Z79.4 will train on omnipod tomorrow at 1130 Body mass index 30+ - obesity 218784476 Z68.32 32.4 Obesity 701992053 E66.9 Chronic ki dney disease stage 3 270865299 N18.30 Heart disease 80907342 I 51.9 Hypertensive disorder 38 722737 I10 Uncontroll ed type 2 diabetes mellitus 688049853 E11.65 [id number] Mary Henry [address] [address] 03/26/2024 14:50:04 03/26/2024 15:51:17 Heart murmur 52322225 R01.1 echosee cardiology on at 11if any issues go to ed Type 2 jose ghada mellitus 20806445 Z79.4 obtain copy of labs from her other pcp.long discussion about med Hypertensive disorder 38 957296 I10 continue meds Heart disease 23185315 I 51.9 follow up with cardiology Chronic ki dney disease stage 3 941336390 N18.30 labs Health Concerns Section Related Observation LastModified by Organization Detai ls LastModified Time None Recorded Concern Status LastModified by Organization Details LastModified Time None Recorded Advance Directives Directive N: Payers Insurance Date Sequence Insurance Name Policy Number Policy Deng Covered Member ID Deng Member ID Guarantor Name 09/27/2024 1 [employer] [place] (MEDICARE REPLACEMENT/ ADVANTAGE - HMO) Mary Coronel [id number] Mary Wilde Homer 09/27/2024 2 [employer] [place] ([place]ICA[place]) Mary Wilde Homer [id number] Mary Wilde Homer 09/27/2024 [employer] [place] [place] [facility] (MEDICARE) Mary Wilde Homer [id number] Mary Wilde Homer 09/27/2024 [place] [facility] WRAP [facility]ILL[facility] (MEDICAID) Mary Wilde Homer [id number] Mary Wilde Homer 05/01/2023 1 [place] Mary Wilde Homer [id number] Mary Wilde Homer Notes Date Note Type [...] foot on the 2nd toe Mary Henry, MARKETING PROGRAM COORDINATOR [address], [place], [address], [facility] - [facility] 05/28/2022 14:18:03 09/03/2022 text/html Mary is a 62 year old female who presents to the office today for a 3 month follow up ondiabetes.pt states she has a appointment tomorrow for her training for omnipod insulin pump. pt states she has been watching her glucose and its been running 120-160 on most days Mary Henry APRN [address], [place], [address], [place] - [facility] 09/03/2022 13:33:38 04/22/2023 text/html [...] started Mary Henry APRN [address], [place], [address], [place] - [facility] 05/01/2023 14:27:32 03/26/2024 text/html [...] Mary Henry APRN [address], [place], [address], [place] - [facility] 03/26/2024 16:02:49 OBGyn Episode No OBEpisode recorded.
--- OUTSIDE RECORDS SUMMARY | 2025-06-10 07:52 | XMS_ITS | Encounter Summary ---
Author Organization Healthcare Address [address] [place] [address] Care Team Providers Care Hot Mill Worker Name Role Phone Larry Bedolla MD Primary Care Provider + [phone] Sary Brannon APRN Unavailable [phone] Monika Hernandez APRN Primary Care Provider + [phone] Encounter Details Date Type Department Care Team (Late st Contact Info) Description 04/30/2018 Orders Only External Location [address] [place] [address] Provider, External Social History Tobacco Use Types [...] filedocumented in this encounter Care Teams Hot Mill Worker Relationship Specialty Start Date End Date Larry Bedolla MD [address] [place] [address] PCP - General 12/08/20 01/18/25 Monika Hernandez APRN [address] [place] [address] PCP - General 01/19/25 aSry Brannon APRN [address] [facility] [address] [place] [address] Referring Physician Gastroenterology 01/07/25 documented as of this encounter
--- OUTSIDE RECORDS SUMMARY | 2025-06-10 07:52 | XMS_ITS | Encounter Summary ---
Author Organization Healthcare Address [address] [place] [address] Care Team Providers Care Employee Training Specialist Name Role Phone Sary Brannon APRN Unavailable + [phone] Monika Hernandez APRN Primary Care Provider + [phone] Reason for Visit * Reason Comments Med Refill Encounter Details Date Type Department Care Team (Late st Contact Info) Description 05/16/2025 Refill [facility] [address] [place] [address] Angel Pulliam MBBS [address] [place] [address] Social History Tobacco Use Types Packs/Day Years [...] documented as of this encounter Care Teams Employee Training Specialist Relationship Specialty Start Date End Date Monika Hernandez APRN [address] [place] [address] PCP - General 01/19/25 Sary Brannon APRN [address] [facility] [address] [place] [address] Referring Physician Gastroenterology 01/07/25 documented as of this encounter
[2025-06-10 07:56] LABS: Microscopic, Urine URINE MICROSCOPIC (MICROSCOPIC)
[2025-06-10 08:12] LABS: Bilirubin,Urine Negative (Negative); Color,Urine YELLOW (Yellow); Glucose,Urine (UA) 3+ (Negative); Ketones,Urine Negative (Negative); Leukocyte Esterase,Urine Negative (Negative); PH,Urine 5.5 (5.0-8.5); Protein,Urine Negative (Negative); Specific Gravity, Urine 1.020 (1.005-1.030); Urobilinogen,Urine 0.2 EU/dl (0.2)
[2025-06-10 08:14] LABS: Hematocrit 32.0 % (37.0-47.0); Hemoglobin 10.3 g/dL (12.2-16.2); Immature Granulocytes % 0.4 %; Mean Corpuscular HGB Conc 32.2 g/dL (31.8-35.4); Mean Corpuscular Hemoglobin 30.7 pg (27.0-31.2); Mean Corpuscular Volume 95.2 fl (81-99); Nucleated Red Blood Cells % 0 %; Platelet Count 100 K/mm3 (142-424); Red Blood Count 3.36 M/mm3 (4.20-5.40); Red Cell Distribution Width-SD 45.1 fL; White Blood Count 2.5 K/mm3 (4.8-10.8)
[2025-06-10 08:36] LABS: Bacteria,Urine Trace /lpf
[2025-06-10 11:12] LABS: Albumin Level 3.4 g/dl (3.5-5.0); Anion Gap 12.3 mEq/L (5-15); Blood Urea Nitrogen 39 mg/dl (7-17); Calcium 9.0 mg/dl (8.4-10.2); Carbon Dioxide 27 mmol/L (22.0-30.0); Chloride 100 mmol/L (98-107); Creatinine,Serum 2.40 mg/dl (0.52-1.04); Estimated Glomerular Filt Rate 20 ml/min (>60); GFR (African American) 25 ML/MIN (>60); Glucose 357 mg/dl (74-100); Phosphorous 4.1 mg/dl (2.5-4.5); Potassium 4.3 mmoL/L (3.5-5.1); Sodium 135 mmol/L (136-145)
== END 2025-06-10 23:59 | disposition home or self-care (01) ==
LOC: LAB 07:49
PROVIDERS: PCP Family Medicine; Visit Provider Internal Medicine Nephrology
DX: N17.9 Acute kidney failure, unspecified (principal)
CPT/HCPCS: 36415; 80069; 81001; 82570; 84156; 85025

== ENCOUNTER 2025-07-08 08:52 | Outpatient (CLI) | payer MEDICARE, MEDICAID, SELFPAY ==
--- NOTE | 2025-07-08 08:59 | US_ITS ---
FINAL REPORT CLINICAL HISTORY: K76.82 - Hepatic encephalopathy rt side -- froilan brown 10,000 ml FINDINGS: ULTRASOUND-GUIDED PARACENTESIS HISTORY: Ascites. ATTENDING RADIOLOGIST: Dr. Keenan. PHYSICIAN IT DESKTOP SUPPORT TECHNICIAN: Froilan Goodwin PA-C. FINDINGS: After informed consent was obtained and time-out procedure performed, the patient was placed sitting upright in the ultrasound suite. Fluid was localized in the right lower quadrant under ultrasound guidance and marked on the skin appropriately. The patient was then prepped and draped in the usual sterile fashion and the skin was anesthetized with 1% lidocaine. An ultrasound-guided paracentesis was then performed using a Turkel needle. Approximately 10 liters of clear yellow fluid was removed. No fluid was sent to the lab. The patient tolerated the procedure well and there were no immediate complications. IMPRESSION: Ultrasound-guided right lower quadrant paracentesis, as discussed above. Reviewed, Interpreted and Dictated by Dre Keenan MD Transcribed by SKIP Parham Authenticated and [facility]
[2025-07-08 09:17] LABS: Hematocrit 33.3 % (37.0-47.0); Hemoglobin 10.9 g/dL (12.2-16.2); Immature Granulocytes % 0 %; Mean Corpuscular HGB Conc 32.7 g/dL (31.8-35.4); Mean Corpuscular Hemoglobin 30.5 pg (27.0-31.2); Mean Corpuscular Volume 93.3 fl (81-99); Nucleated Red Blood Cells % 0 %; Platelet Count 78 K/mm3 (142-424); Red Blood Count 3.57 M/mm3 (4.20-5.40); Red Cell Distribution Width-SD 47.6 fL; White Blood Count 2.2 K/mm3 (4.8-10.8)
[2025-07-08 09:27] LABS: Ammonia 22 umol/L (9-30); INR 1.24 (0.9-1.1); Prothrombin Time 13.5 seconds (10.1-12.5)
[2025-07-08 09:51] LABS: Alanine Aminotransferase 13 U/L (12-78); Albumin Level 3.2 g/dl (3.5-5.0); Albumin/Globulin Ratio 0.8 (1.1-1.8); Alkaline Phosphatase 141 U/L (38-126); Anion Gap 11.9 mEq/L (5-15); Aspartate Amino Transferase 31 U/L (14-36); Bilirubin,Total 1.4 mg/dl (0.2-1.3); Blood Urea Nitrogen 44 mg/dl (7-17); Calcium 8.7 mg/dl (8.4-10.2); Carbon Dioxide 30 mmol/L (22.0-30.0); Chloride 103 mmol/L (98-107); Creatinine,Serum 2.60 mg/dl (0.52-1.04); Estimated Glomerular Filt Rate 19 ml/min (>60); GFR (African American) 22 ML/MIN (>60); Globulin 4.1 g/dL (1.3-3.2); Glucose 194 mg/dl (74-100); Iron 56 ug/dL (37-170); Potassium 3.9 mmoL/L (3.5-5.1); Sodium 141 mmol/L (136-145); Total Protein,Serum 7.3 g/dl (6.3-8.2)
[2025-07-08 10:00] LABS: Total Iron Binding Capacity 190 ug/dL (265-497)
[2025-07-08 10:26] LABS: Ferritin 177 ng/ml (11.1-264)
--- NOTE | 2025-07-08 10:30 | US_ITS ---
FINAL REPORT CLINICAL HISTORY: cirrhosis f/u FINDINGS: Sonographic images of the right upper quadrant were obtained. The pancreas is obscured. There is a large amount of ascites. Small nodular liver is noted. Portal vein is distended consistent with portal venous hypertension. The gallbladder is surgically absent. The common duct measures 2 mm. Limited images of the right kidney are unremarkable. IMPRESSION: Small nodular liver with ascites consistent with cirrhosis. Reviewed, Interpreted and Dictated by Dre Keenan MD Transcribed by Shara Sanchez Authenticated and [facility]
[2025-07-08 11:03] VITALS: BP 143/67; PULSE 105; RESP 20; O2SAT 98
[2025-07-08] MEDS: ALBUMIN HUMAN 12.5 GM/50 ML BAG IV ×6 (11:05→13:23)
[2025-07-08 11:58] VITALS: BP 167/81; PULSE 109; RESP 18
[2025-07-08 12:25] VITALS: BP 130/66; PULSE 105; RESP 17
[2025-07-08 12:55] VITALS: BP 141/64; PULSE 101; RESP 17
[2025-07-08 13:23] VITALS: BP 147/71; PULSE 99; RESP 16
[2025-07-08 13:50] VITALS: BP 146/70; PULSE 99; RESP 17
== END 2025-07-08 23:59 | disposition home or self-care (01) ==
LOC: RAD 09:00 → INF 10:46
PROVIDERS: PCP Family Medicine; Visit Provider Nurse Practitioner Family
DX: K76.82 Hepatic encephalopathy (principal); R18.8 Other ascites; K74.60 Unspecified cirrhosis of liver
CPT/HCPCS: 36415; 49083; 76705; 80053; 82105; 82140; 82728; 83540; 83550; 85025; 85610; 96365; 96366; P9047